=== PATIENT | male | born 1945 | race Caucasian/White ===

== ENCOUNTER 2018-03-24 21:14 | Inpatient (IN) | payer MEDICARE, OTHER, SELFPAY ==
[2018-03-24 21:15] VITALS: BP 144/65; PULSE 123; RESP 16; TEMP 38; O2SAT 94; BMI 35.5
--- NOTE | 2018-03-24 21:34 | ED.VISSUMM ---
- ER Visit Summary Date of Service: 03/24/18 Chief Complaint: Foot ulcer History of Present Illness: The patient is a [address] Chidi Christian III, Dr. Kendrick Troy, and Dr. Obregon. He reports that he has an ulcer on the bottom of his right great toe that is been present since the beginning of February. He has been seeing mutton puncher for the past 3 weeks. States that did not seem infected until yesterday. Reports the area became red yesterday. Reports his pain is 6 out of 10 and sharp when he walks. He is pain-free at rest. He does report that he developed a fever tonight to 100.4?. He denies any other complaints. Physical Examination: Vitals: Stable. Afebrile. General: Well-nourished and well-developed. Head: Normocephalic atraumatic. Neck: Supple, no lymphadenopathy. No JVD. Nontender. Cardiovascular: Tachycardic regular rhythm with a 2 out of 6 systolic murmur. Respiratory: No respiratory distress. Clear to auscultation bilaterally. Abdominal: Soft, nontender, nondistended, normal bowel sounds. No guarding, rebound, or peritoneal signs. Back: Nontender. Extremities: Dime sized ulcer on the medial side of the plantar surface of his right great toe. There is purulent drainage coming from this. He has erythema over the dorsum of his foot.. Skin: Normal color, no rash. Neurologic: Alert and oriented ?3. Cranial nerves II through XII are intact. Normal strength and sensation. Psych: Normal affect. Test Results: CBC is remarkable for a white count of 17.3 with an H&H of 11.3 and 35.7, segmented neutrophils 85, lymphocytes of 5. Chem-7 is more for sodium 134, chloride 95, BUN 32, creatinine 1.75, glucose of 271. Lactic acid is 3.1. Right great toe x-ray shows possible osteomyelitis involving the undersurface of the first distal phalanx. There is also questionable foreign body in this area. Emergency Department Course and Treatment: Patient had wound cultures obtained. He was given Zosyn and vancomycin IV. Patient is given Tylenol for the fever. He is given a liter bolus of normal saline. Treatment Plan: Patient was discussed with Dr. Jesus Curiel. He will be admitted to the hospital for further evaluation and treatment. Disposition: Admitted in improved but serious condition. Impression: 1. Diabetic ulcer right great toe. 2. Severe sepsis. 3. Acute renal insufficiency. 4. Possible foreign body right great toe. This note was generated with [employer] dictation software. It may contain incorrect words, spelling, and punctuation that were not noted in review of the chart prior to signing ED Disposition - Plan for ED Patient: Chief Complaint: Wound Referrals: Chidi Christian III, MD [Primary Care Provider] -
[2018-03-24] MEDS: 0.9% Normal Saline 1,000 ML 150 ML IV (21:58)
--- NOTE | 2018-03-24 22:10 | RAD_ITS ---
STUDY: X-RAY RIGHT FOOT, FIRST TOE REASON FOR EXAM: Male, 72 years old. Diabetic ulcer TECHNIQUE: 5 view(s) of the toe were obtained. COMPARISON: None. FINDINGS: A large and deep soft tissue wound is seen directly plantar to the first interphalangeal joint. In the same general area there is a 1 mm metal density consistent with foreign body. On the lateral view, there are irregularities of the undersurface of the distal first phalanx which could represent osteomyelitis. There is generalized soft tissue swelling. RAD/Toe(s) Min 2 Views IMPRESSION: Possible osteomyelitis involving the undersurface of the first distal phalanx. Electronically Signed: [place] MD at 22:26 EDT , Service support ,
[2018-03-24 22:19] LABS: Absolute Lymphocyte Count 0.93 X10^3/ul (0.83-4.51); Absolute Neutrophil Count 14.7 X10^3/uL (2.0-7.7); Basophil# 0.01 X10^3/uL; Basophil% 0.1 % (0-1); Eosinophil# 0.12 X10^3/uL; Eosinophils% 0.7 % (0-5); Hematocrit 35.7 % (40-54); Hemoglobin 11.3 g/dl (13.0-16.5); Lymphocyte # 0.93 X10^3/ul (4.0); Lymphocyte % 5.4 % (19-41); Mean Corp Hgb Conc 31.7 g/gl (32-36); Mean Corpuscular Volume 85.2 fL (80-94); Monocyte# 1.52 X10^3/uL; Monocyte% 8.8 % (0-10); Neutrophil # 14.66 X10^3/uL (2.7-7.7); Neutrophil % 84.8 % (47-70); Platelet Count 303 K/mm3 (150-450); RBC Distribution Width CV 13.8 % (11.6-14.6); RBC Distribution Width SD 43.1 fl (35.1-43.9); Red Blood Count 4.19 M/mm3 (4.6-6.2); White Blood Count 17.3 K/mm3 (4.4-11.0)
[2018-03-24 22:20] VITALS: BP 150/88; PULSE 102; RESP 14; O2SAT 98
[2018-03-24 22:20] LABS: Differential Indicated SCAN CRITERIA MET; POSITIVE COUNT NO; POSITIVE DIFFERENTIAL YES; POSITIVE MORPHOLOGY NO
[2018-03-24 22:28] LABS: Anion Gap 13 (5-15); BUN 32 mg/dL (7-18); BUN/Creat Ratio 18.3 RATIO (10-20); Calcium,Total 9.2 mg/dL (8.5-10.1); Chloride 95 mmol/L (98-107); Creatinine, Serum 1.75 mg/dL (0.70-1.30); EST Glomerular Filtration Rate 41 mL/min (>60); Est Glom Filt Rate - Afr Amer 50 mL/min (>60); Estimated Creatinine Clearance 44.39 ml/min; Glucose 271 mg/dL (74-106); Potassium 3.5 mmol/L (3.5-5.1); Sodium Level 134 mmol/L (136-145)
[2018-03-24 22:42] LABS: Differential Comment SCANNED; Lactic Acid 3.1 mmol/L (0.4-2.0)
[2018-03-24 23:11] LABS: M R Staph aureus DNA By PCR Negative (Negative); Probe Check PASS; Specimen Processing Control PASS; Staph aureus DNA By PCR POSITIVE (Negative)
[2018-03-24] MEDS: 0.9% Normal Saline 1,000 ML 999 ML IV (23:16)
[2018-03-24] MEDS: Acetaminophen 500 MG Tablet 1000 MG PO (23:18)
--- NOTE | 2018-03-24 23:46 | PCM.HP.STD ---
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 This initially started as a diabetic ulcer for which he has been receiving chronic wound care as an outpatient. He states the wound was improving until recently when they changed the type of wound care dressing they were using. Today upon opening his bandage copious amount of purulent discharge was present. The foot was warm to touch as well. WBC count is 17,000 with a left shift. He will be admitted for IV antibiotics and surgical management. 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) DM II (diabetes mellitus, type II), controlled (Chronic) HTN (hypertension) (Chronic) Allergies No Known Allergies Allergy (Verified 03/24/18 21:16) Home Medications: Ambulatory Orders Medication Instructions Recorded Metoprolol(XL)Succ [Toprol Xl 200 mg PO DAILY 09/16/13 (Beta Red)] Aspirin [Aspirin, Baby] 81 mg PO DAILY@0800 #30 tab.chew 09/19/13 Atorvastatin Calcium [Lipitor] 5 mg PO QHS #30 tablet 09/19/13 Warfarin [Coumadin] 5 mg PO DAILY #30 tablet 09/19/13 Chlorthalidone 25 mg PO DAILY 03/24/18 Collagenase [Santyl] 1 applic TOPICAL DAILY 03/24/18 Dulaglutide [Trulicity] 1.5 mg SQ QWEEK 03/24/18 Losartan Potassium 50 mg PO DAILY 03/24/18 Metformin HCl [Metformin HCl ER] 1,000 mg PO BID 03/24/18 Pioglitazone [Actos] 30 mg PO DAILY 03/24/18 Surgical History: - - Repair of a thoracic aortic aneurysm and aortic valve repair in 2006. Patient also had an MRSA infection in his abdomen before and had quite extensive debridement. Smoking Status: Never smoker - *Family History Maternal History Items: No pertinent history Review of Systems Constitutional: Reports: Fever. Denies: Chills, Weight Change HEENT: Denies: Head Aches, Sinus Congestion, Sinus Drainage Cardiovascular: Denies: Chest Pain, Palpitations Respiratory: Denies: Cough, Shortness of breath at rest, Sputum production Gastrointestinal: Denies: Abdominal Pain, Nausea, Vomiting Genitourinary: Denies: Dysuria Musculoskeletal: Denies: Joint Pain, Joint Tenderness Skin: Reports: Wounds - right foot. Denies: Rash Neurological: Denies: Numbness, Tingling, Focal weakness Psychiatric: Denies: Anxiety, Depression, Homicidal Ideations, Suicidal Ideations Hematologic/ Lymphatic: Denies: Easy Bruising, Easy Bleeding VTE Information - Inpt Only VTE Present on Admission: No VTE Mechan Device Prophylaxis: None VTE Pharm Prophylaxis ordered?: Yes Patient Problems: Active and Suspected Problems Ulcer of right great toe due to diabetes mellitus (Acute) Osteomyelitis (Acute) - Physical Exam General: Alert, Oriented x3, Cooperative HEENT: Atraumatic, Normocephalic Neck: Supple Lungs: Clear to auscultation, Normal air movement Cardiovascular: Regular rate, Normal S1, Normal S2, No murmurs Abdomen: Bowel Sounds Present, Soft, Non Tender Extremities: Tenderness Skin: Ulcer/ Wound - right great toe dorsal surface quarter size open wound erythema /warmth with induration present on the distal midfoot circumferentially Musculoskeletal: Tenderness Neurological: Cranial nerves II-XII grossly intact Psych/Mental Status: Normal Affect, Appropriate Vital Signs Temp Pulse Resp BP Pulse Ox 100.4 F H 102 H 14 150/88 H 98 03/24/18 21:15 03/24/18 22:20 03/24/18 22:20 03/24/18 22:20 03/24/18 22:20 Oxygen Delivery Method Room Air Weight: 269 lb 6.4 oz Body Mass Index (BMI) 35.5 Laboratory Tests Past 24 Hrs 03/24/18 03/24/18 03/24/18 21:33 22:00 22:00 WBC 17.3 H RBC 4.19 L Hgb 11.3 L Hct 35.7 L MCV 85.2 MCH 27.0 MCHC 31.7 L RDW 13.8 RDW Differential 43.1 Plt Count 303 MPV 9.0 Immature Gran % (Auto) 0.200 Neut % (Auto) 84.8 H Lymph % (Auto) 5.4 L [place] % (Auto) 8.8 Eos % (Auto) 0.7 Baso % (Auto) 0.1 Absolute Neuts (auto) 14.7 H Absolute Lymphs (auto) 0.93 Total Counted Not Reportable Differential Comment SCANNED Sodium 134 L Potassium 3.5 Chloride 95 L Carbon Dioxide 26.0 Anion Gap 13 BUN 32 H Creatinine 1.75 H Estim Creat Clear Calc 44.39 Est GFR (MDRD) Af Amer 50 L Est GFR (MDRD) Non-Af 41 L BUN/Creatinine Ratio 18.3 Glucose 271 H Lactic Acid Calcium 9.2 S.aureus Protein A PCR POSITIVE H MRSA (PCR) Negative 03/24/18 22:00 WBC RBC Hgb Hct MCV MCH MCHC RDW RDW Differential Plt Count MPV Immature Gran % (Auto) Neut % (Auto) Lymph % (Auto) [place] % (Auto) Eos % (Auto) Baso % (Auto) Absolute Neuts (auto) Absolute Lymphs (auto) Total Counted Differential Comment Sodium Potassium Chloride Carbon Dioxide Anion Gap BUN Creatinine Estim Creat Clear Calc Est GFR (MDRD) Af Amer Est GFR (MDRD) Non-Af BUN/Creatinine Ratio Glucose Lactic Acid 3.1 H Calcium S.aureus Protein A PCR MRSA (PCR) Assessment/Plan All Active Problems Ulcer of right great toe due to diabetes mellitus (Acute) Osteomyelitis (Acute) Vertigo (Acute) Cough (Acute) (dyspnea on exertion) (Acute) Pulmonary emboli (Acute) H/O aortic valve repair (Resolved) H/O thoracic aortic aneurysm repair (Resolved) Nausea (Resolved) PAF (paroxysmal atrial fibrillation) (Resolved) Assessment - cellulitis foot - osteomyelitis great toe right - diabetic ulcer foot Chronic Problems HLD (hyperlipidemia) (Chronic) 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) DM II (diabetes mellitus, type II), controlled (Chronic) HTN (hypertension) (Chronic) Plan - admit to medical surgical floor - consult Dr Mejia - continue Vancomycin and Zosyn - NPO - ok home medications with sips otherwise NPO pending surgery - LMWH for DVT prophylaxis - CBC, BMP, Lactate in am Code Visit Inpatient E&M: 48921 Init Hosp L3
[2018-03-25] VITALS (13 sets, daily range): BP systolic 108–130; BP diastolic 50–72; PULSE 64–88; RESP 14–20; TEMP 36.8–38.3; O2SAT 94–100; BMI 35.5; BMI 35.9
--- NOTE | 2018-03-25 01:13 | PCM.RX.CS ---
Consult Pharmacy has been consulted to manage selected antiobiotic: Vancomycin Type of Consult: New start Suspected Infection: Osteomyelitis Prior Doses of Antibiotics Received/Current Regimen: Medications Discontinued Medications Vancomycin HCl 1,750 mg/ (Sodium Chloride) 535 mls @ 250 mls/hr IV X1 ONE Stop: 03/25/18 00:08 Last Admin: 03/24/18 22:17 Dose: 250 mls/hr Medications Vancomycin HCl (Vancomycin) 1,000 mg in 200 mls @ 200 mls/hr IV Q12H FRED Start: 03/26/18 1000 Labs: Sodium 134 mmol/L (136-145) L 03/24/18 22:00 Potassium 3.5 mmol/L (3.5-5.1) 03/24/18 22:00 Chloride 95 mmol/L (98-107) L 03/24/18 22:00 Carbon Dioxide 26.0 mmol/L (21.0-32.0) 03/24/18 22:00 Anion Gap 13 (5-15) 03/24/18 22:00 BUN 32 mg/dL (7-18) H 03/24/18 22:00 Creatinine 1.75 mg/dL (0.70-1.30) H 03/24/18 22:00 Est GFR (MDRD) Af Amer 50 mL/min (>60) L 03/24/18 22:00 Est GFR (MDRD) Non-Af 41 mL/min (>60) L 03/24/18 22:00 BUN/Creatinine Ratio 18.3 RATIO (10-20) 03/24/18 22:00 Glucose 271 mg/dL (74-106) H 03/24/18 22:00 Weight used for dosin.2 kg Estimated Creatinine Clearance: 44.39 Goal Trough: 15-20 mcg/mL Pharmacy Plan for Drug Dosing: Pharmacy Service will continue to monitor and adjust dosing as required. Vancomycin will be started at 1000mg IV q12h with a goal trough of 15-20 mg/L for osteomyelitis. A vancomycin trough will be obtained before the 4th dose. Follow-Up Labs: Trough Vancomycin - before 4th dose Labs to be done on [date and time ordered]: 03/26/18 0930 vancomycin trough
[2018-03-25 02:09] LABS: Reflex Lactate? Y
[2018-03-25 02:59] LABS: Prothrombin Time (Protime)PT. 31.7 SECONDS (11.7-14.9)
[2018-03-25 03:04] LABS: Absolute Lymphocyte Count 1.59 X10^3/ul (0.83-4.51); Absolute Neutrophil Count 12.8 X10^3/uL (2.0-7.7); Basophil# 0.03 X10^3/uL; Basophil% 0.2 % (0-1); Eosinophil# 0.14 X10^3/uL; Eosinophils% 0.9 % (0-5); Hematocrit 31.2 % (40-54); Hemoglobin 10.1 g/dl (13.0-16.5); Lymphocyte # 1.59 X10^3/ul (4.0); Lymphocyte % 9.9 % (19-41); Mean Corp Hgb Conc 32.4 g/gl (32-36); Mean Corpuscular Hgb 27.3 pg (27.0-32.0); Mean Corpuscular Volume 84.3 fL (80-94); Mean Platelet Vol. 8.9 fl (6.2-12.0); Monocyte# 1.34 X10^3/uL; Monocyte% 8.4 % (0-10); Neutrophil # 12.82 X10^3/uL (2.7-7.7); Neutrophil % 80.2 % (47-70); POSITIVE COUNT NO; POSITIVE DIFFERENTIAL NO; POSITIVE MORPHOLOGY NO; Platelet Count 270 K/mm3 (150-450); RBC Distribution Width CV 13.8 % (11.6-14.6); RBC Distribution Width SD 42.7 fl (35.1-43.9)
[2018-03-25 03:11] LABS: Anion Gap 13 (5-15); BUN 32 mg/dL (7-18); BUN/Creat Ratio 19.8 RATIO (10-20); Calcium,Total 8.3 mg/dL (8.5-10.1); Chloride 100 mmol/L (98-107); Creatinine, Serum 1.62 mg/dL (0.70-1.30); EST Glomerular Filtration Rate 45 mL/min (>60); Est Glom Filt Rate - Afr Amer 54 mL/min (>60); Estimated Creatinine Clearance 46.57 ml/min; Glucose 222 mg/dL (74-106); Potassium 3.3 mmol/L (3.5-5.1); Sodium Level 140 mmol/L (136-145)
[2018-03-25 03:43] LABS: Lactic Acid 2.1 mmol/L (0.4-2.0)
[2018-03-25 06:01] LABS: Lactic Acid 2.3 mmol/L (0.4-2.0)
--- NOTE | 2018-03-25 06:03 | NURSING ---
Lab notified this RN at 0600hrs re Lactic acid result of 2.3. Notified primary RN Dario of result.
[2018-03-25 06:30] LABS: Bedside Glucose 221 mg/dL (70-110)
[2018-03-25] MEDS: Piperacil/Tazobactam 3.375 GM/50 ML ML IV ×3 (06:39→21:47)
--- NOTE | 2018-03-25 07:22 | CON.PCM_ITS ---
Reason for Consult Date of Consultation: 03/25/18 Reason for Consultation: cellulitis and diabetic foot ulceration History of Present Illness: The patient is a 72 year old M with pmh for diabetic neuropathy is currently admitted for cellulitis and possible osteomyelitis of his right hallux. Patient is well known to me as he comes to my clinic for diabetic foot care every 3 months. He saw me for diabetic foot exam on March 06. at that time , it was found that he had ulceration of his right hallux that he states had been present for 3-4 weeks. He did not call my office because he stated at that time that he has had alot going on and he did not feel that he had time to get to my office. He was treating the wound with neosporin and he felt that it was getting better. He has been seen for the past 3 weeks in my office. We initially treated with santyl for enzymatic debridement of fibrotic slough. He had been recommended peg assisted offloading boot and walker but he did not use this as he felt that it was not adequately offloading the ulceration. He has been offered total contact casting but he declined that. he has had xrays in my office on march 06 and last Saturday. xrays in my clinic have been stable with no osteomyelitis. Last week when he presented to my clinic, the wound although fairly large, appeared more granular. Sandra was ordered for daily wound care. He was given forefoot wedge shoe. He states the ulceration is getting smaller but yesterday, he noticed some drainage. He presented to the emergency room where wbc was found to be 17,000. xrays were ordered and there are now questionable findings for osteomyelitis of his right hallux distal phalanx. Patient was placed on antibiotic. He is npo for possible podiatric surgery. Of note, patient has had pvr performed in my clinic this past November and his circulation appears to be adequate. Patient denies n/v/f/c. [] 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) DM II (diabetes mellitus, type II), controlled (Chronic) HTN (hypertension) (Chronic) Allergies No Known Allergies Allergy (Verified 03/24/18 21:16) Home Medications: Ambulatory Orders Medication Instructions Recorded Metoprolol(XL)Succ [Toprol Xl 200 mg PO DAILY 09/16/13 (Beta Red)] Aspirin [Aspirin, Baby] 81 mg PO DAILY@0800 #30 tab.chew 09/19/13 Warfarin [Coumadin] 5 mg PO DAILY #30 tablet 09/19/13 Chlorthalidone 25 mg PO DAILY 03/24/18 Dulaglutide [Trulicity] 1.5 mg SQ QWEEK 03/24/18 Losartan Potassium 50 mg PO DAILY 03/24/18 Metformin HCl [Metformin HCl ER] 1,000 mg PO BID 03/24/18 Pioglitazone [Actos] 30 mg PO DAILY 03/24/18 Atorvastatin Calcium [Lipitor] 10 mg PO QHS 03/25/18 Surgical History: - - Repair of a thoracic aortic aneurysm and aortic valve repair in 2006. Patient also had an MRSA infection in his abdomen before and had quite extensive debridement. Smoking Status: Never smoker - *Family History Maternal History Items: No pertinent history Patient Problems: Active and Suspected Problems Ulcer of right great toe due to diabetes mellitus (Acute) Osteomyelitis (Acute) Objective: Patient is alert and orientated x 3. He does not appear in any distress vascular: DP and PT pulses are palpable to right foot. CFT is brisk. Skin temperature is warm to warm. There is edema of right foot. There is redness of right midfoot extending distally. Derm: there is full thickness ulceration to right hallux ipj. ulceration is approximately 1.2 cm x 0.8 cm x 0.3 cm. there is pus drainage from the base of ulceration. there is scaling and deroofing of skin of lateral right hallux that is new since last Saturday. no other ulceration is noted to right foot. neuro: protective sensation is absent to right foot. xrays reviewed. there is questionable erosive changes to right hallux distal phalanx concerning for osteomyelitis. no gas in soft-tissue. there is small 1 mm foreign body of right hallux - Physical Exam Vital Signs Temp Pulse Resp BP Pulse Ox 98.7 F 71 16 108/58 L 98 03/25/18 06:06 03/25/18 06:06 03/25/18 06:06 03/25/18 06:06 03/25/18 06:06 Oxygen Delivery Method Room Air Weight: 122.8 kg Body Mass Index (BMI) 35.9 Intake and Output for Last 24 Hours 03/23/18 03/24/18 03/25/18 23:59 23:59 23:59 Intake Total 741 / 741 Balance 741 / 741 Laboratory Tests Past 24 Hrs 03/25/18 03/25/18 03/25/18 02:37 02:37 02:37 WBC 16.0 H RBC 3.70 L Hgb 10.1 L Hct 31.2 L MCV 84.3 MCH 27.3 MCHC 32.4 RDW 13.8 RDW Differential 42.7 Plt Count 270 MPV 8.9 Immature Gran % (Auto) 0.400 Neut % (Auto) 80.2 H Lymph % (Auto) 9.9 L [place] % (Auto) 8.4 Eos % (Auto) 0.9 Baso % (Auto) 0.2 Absolute Neuts (auto) 12.8 H Absolute Lymphs (auto) 1.59 Total Counted Not Reportable PT 31.7 H INR 3.0 Sodium 140 Potassium 3.3 L Chloride 100 Carbon Dioxide 27.0 Anion Gap 13 BUN 32 H Creatinine 1.62 H Estim Creat Clear Calc 46.57 Est GFR (MDRD) Af Amer 54 L Est GFR (MDRD) Non-Af 45 L BUN/Creatinine Ratio 19.8 Glucose 222 H Lactic Acid Calcium 8.3 L 03/25/18 03/25/18 02:37 05:05 WBC RBC Hgb Hct MCV MCH MCHC RDW RDW Differential Plt Count MPV Immature Gran % (Auto) Neut % (Auto) Lymph % (Auto) [place] % (Auto) Eos % (Auto) Baso % (Auto) Absolute Neuts (auto) Absolute Lymphs (auto) Total Counted PT INR Sodium Potassium Chloride Carbon Dioxide Anion Gap BUN Creatinine Estim Creat Clear Calc Est GFR (MDRD) Af Amer Est GFR (MDRD) Non-Af BUN/Creatinine Ratio Glucose Lactic Acid 2.1 H 2.3 H Calcium POC Glucose 03/25/18 06:18 POC Glucose 221 H Assessment/Plan All Active Problems Ulcer of right great toe due to diabetes mellitus (Acute) Osteomyelitis (Acute) Vertigo (Acute) Cough (Acute) (dyspnea on exertion) (Acute) Pulmonary emboli (Acute) H/O aortic valve repair (Resolved) H/O thoracic aortic aneurysm repair (Resolved) Nausea (Resolved) PAF (paroxysmal atrial fibrillation) (Resolved) Patient was examined and informed of current findings. On exam, he has both cellulitis of foot and active drainage of right hallux ipj ulceration, both new since last week. xrays reviewed and concerning for osteomyelitis. I have discussed with patient need for incision and drainage. given xray findings, there is significant risk that he is going to require some form of amputation. Partial vs total toe amputation is possible not only for osteomyelitis but due to the condition of surrounding skin and existing ulceration. I would like to order mri vs ct scan to aide in further operative planning for extent of likely amputation. given that he has small metallic body in foot, mri is likely not adequate and will likely require ct scan. I am going to discuss with radiology. I have had discussion with patient. this patient had ulceration of right hallux for nearly one month before seeking treatment. it is important in future if he has an issue, he contact provider immediately so that this situation is prevented in future. he understands the result of his action. continue with antibiotic. will have patient resume clear liquid diet until 10: 00. npo thereafter for possible surgery.
--- NOTE | 2018-03-25 07:30 | BON_PTH ---
PATIENT: RICHARD ROY LOC: MS2 U#:[id number] AGE/SX: 72/M [place] [facility] [place]: Dr. Gabriel Giraldo DO : 1945 BED: 1 DIS: 04/01/2018 SPEC #: [id number] RECD: 03/26/18 13:08 STATUS: VINNIE REQ #: [id number] CAMILA: 03/25/18 07:[address]: Zachary Obregon DEPT: SURGICAL PATHOLOGY RECD BY: Asaf Esteban ENTERED: 03/26/18 13:09 SP TYPE: Bone OTHR DR: MD Dr. Yolie Bear III, MD Dr. Marc Fiorentino, MD Dr. Matthew Testrake, DPM MD Dr. Smith Ram MD Tissues: A - Bone of foot, NOS B - Bone of foot, NOS Procedures: Decalcification bone/plaque Special Stain Group I Surgery Specimen Level III Surgery Specimen Level IV AFB Stain (control) GMS Stain (control) Comments: @ Ordering doctor for DEC edited from to @ by DONNA at 03/26/18 160 @ Ordering doctor for SUIII edited from to @ by DONNA at 03/26/18 1608 @ Submitting doctor edited from to @ sujey THOMPSON at 03/26/18 1601 HEADER OPERATION: Incision and drainage, partial amputation great toe PRE-OP DIAGNOSIS: Osteomyelitis right great toe with diabetic foot ulcerations TISSUE SUBMITTED: A ? Pre-lavage distal phalanx right hallux, B ? Post-lavage first metatarsal right foot MICROSCOPIC DIAGNOSIS A. Distal phalanx right hallux, pre-lavage, amputation: Acute inflammation and abscess formation. Special stains for acid fast bacilli and fungi are negative for organisms; matched controls are appropriate. Bone with acute osteomyelitis. B. Post-lavage first metatarsal right foot: A piece of bone, negative for acute osteomyelitis. SJ:radhika 03/31/18 MICROSCOPIC DESCRIPTION Slides are reviewed. GROSS DESCRIPTION A - Received in fixative is one container labeled with the patient's name and designated pre-lavage distal phalanx right hallux. The specimen consists of a portion of toe measuring 3 x 3 x 2 cm. The nail is present and appears focally atrophic. No obvious area of ulcerated is noted. Bioassayist sections are submitted in three cassettes as follows: 1 ? soft tissue close to the area of amputation, 2 & 3 ? bone after decalcification. B - Received in fixative is one container labeled with the patient's name and designated post-lavage first metatarsal right foot. The specimen consists of a piece of bone measuring 0.7 x 0.3 x 0.3 cm. The entire specimen is submitted in one cassette after decalcification. / SJ:rg 03/26/18 TC:2 CPT: 71836, 87935, 98124 x2, 81297 x2
--- NOTE | 2018-03-25 08:09 | MRI_ITS ---
STUDY: MRI RIGHT FOREFOOT WITHOUT CONTRAST REASON FOR EXAM: Open wound since February. TECHNIQUE: Standardized fat and water weighted pulse sequences were obtained in all 3 orthogonal planes. COMPARISON: Radiographs 03/24/2018. FINDINGS: Normal metatarsophalangeal joint of the hallux. There is a bipartite fibular sesamoid with slight cystic change adjacent to the synchondrosis (inversion recovery sagittal image 9). Normal interphalangeal joint of the hallux. There is bone edema of the first distal phalanx (inversion recovery sagittal images 11, 12) with erosion of the plantar cortex of the first proximal phalanx (T1 series 7 image 28) suggestive of osteomyelitis. There is bone edema of the first proximal phalanx (inversion recovery sagittal images 9, 10) without decreased T1 bone marrow signal and therefore either reactive bone edema or early osteomyelitis. Normal medial and lateral heads of the flexor hallucis brevis tendons. Normal flexor and extensor hallucis longus tendons. Normal second through fifth metatarsophalangeal (MTP) joints. Normal interphalangeal joints of the second through fifth toes. Normal proximal, middle and distal phalanges of the second through fifth toes. There is soft tissue fullness at the plantar aspect of the second webspace (T1 series 7 images 16, 17) measuring 0.5 cm in AP dimension. Normal flexor and extensor tendons of the second through fifth toes. Normal visualized metatarsi. There is fat replacement of the intrinsic muscles of the forefoot (T1 sagittal images 11-23) suggestive of peripheral neuropathy. There is edema in the subcutis adipose space. There is a fluid collection at the lateral aspect of the first interphalangeal joint/first proximal phalanx (inversion recovery sagittal image 13; T2 series 8 images 24, 25) suggestive of an abscess measuring 1.5 x 0.7 x 2.6 cm (AP x transverse x length). MRI/Lower Ext/No Jt/w/o IMPRESSION: Signal alteration of the distal phalanx of the great toe suggestive of osteomyelitis, and bone edema of the first proximal phalanx, either reactive bone edema or early osteomyelitis. Fluid collection at the lateral aspect of the great toe suggestive of abscess. Atrophy of the intrinsic muscles of the forefoot suggestive of peripheral neuropathy. Small intermetatarsal neuroma of the second webspace. Electronically Signed: Tyler Neal MD at 9:58 EDT Tel , Service support ,
--- NOTE | 2018-03-25 08:48 | PCM.PN.HOSP ---
Patient Problems: Active and Suspected Problems Ulcer of right great toe due to diabetes mellitus (Acute) Osteomyelitis (Acute) Subjective: Doing ok, still has pain in his right great toe. States that he has lost 30# over the last few months. Vitals/I&O's: Vital Signs Temp Pulse Resp BP Pulse Ox 98.7 F 71 16 108/58 L 98 03/25/18 06:06 03/25/18 06:06 03/25/18 06:06 03/25/18 06:06 03/25/18 06:06 Oxygen Delivery Method Room Air Weight: 270 lb 11.642 oz Body Mass Index (BMI) 35.9 Intake and Output for Last 24 Hours 03/23/18 03/24/18 03/25/18 23:59 23:59 23:59 Intake Total 741 / 741 Balance 741 / 741 General: Alert, Oriented x3, Cooperative, No apparent distress HEENT: Atraumatic, EOMI, Normocephalic Oral: Moist Mucosa Neck: Supple, No JVD Lungs: Clear to auscultation, Normal air movement, No rhonchi, No wheeze, No rales Cardiovascular: Regular rate, Regular Rhythm, Normal S1, Normal S2, No murmurs Abdomen: Soft, Non Tender, Non-Distended, No Hepato-splenomegaly Extremities: No edema, Capillary Refill Less than 3 Seconds Skin: - - erythema and warmth surrounding his right great toe Musculoskeletal: Tenderness - right great toe Neurological: Neuro grossly intact, Sensory exam intact to light touch and pain Psych/Mental Status: Normal Affect, Appropriate Laboratory Results 03/25/18 02:37: WBC 16.0 H, RBC 3.70 L, Hgb 10.1 L, Hct 31.2 L, MCV 84.3, MCH 27.3, MCHC 32.4, RDW 13.8, RDW Differential 42.7, Plt Count 270, MPV 8.9, Immature Gran % (Auto) 0.400, Neut % (Auto) 80.2 H, Lymph % (Auto) 9.9 L, Polk % (Auto) 8.4, Eos % (Auto) 0.9, Baso % (Auto) 0.2, Absolute Neuts (auto) 12.8 H, Absolute Lymphs (auto) 1.59, Total Counted Not Reportable 03/25/18 02:37: PT 31.7 H, INR 3.0 03/25/18 02:37: Sodium 140, Potassium 3.3 L, Chloride 100, Carbon Dioxide 27.0, Anion Gap 13, BUN 32 H, Creatinine 1.62 H, Estim Creat Clear Calc 46.57, Est GFR (MDRD) Af Amer 54 L, Est GFR (MDRD) Non-Af 45 L, BUN/Creatinine Ratio 19.8, Glucose 222 H, Calcium 8.3 L 03/25/18 02:37: Lactic Acid 2.1 H 03/25/18 05:05: Lactic Acid 2.3 H 03/25/18 06:18: POC Glucose 221 H Current Medications Acetaminophen (Tylenol) 650 mg PO Q6H PRN PRN PRN Reason: Mild Pain (scale 0-3)/T>100.7 Aspirin (Aspirin, Baby) 81 mg PO DAILY@0800 [facility] Atorvastatin Calcium (Lipitor) 5 mg PO QHS [facility] Chlorthalidone (Hygroton) 25 mg PO DAILY [facility] Dextrose (D50w Syringe) 0 gm IV X1 PRN; Protocol PRN Reason: Hypoglycemia Glucagon () 1 mg IM .X1 PRN PRN Reason: Hypoglycemia Sodium Chloride () 1,000 mls @ 150 mls/hr IV .Q6H40M [facility] Last Admin: 03/24/18 21:58 Dose: 150 mls/hr Piperacillin Sod/Tazobactam Sod (Zosyn) 3.375 gm in 50 mls @ 12.5 mls/hr IV Q8 [facility] Last Admin: 03/25/18 06:39 Dose: 12.5 mls/hr Vancomycin IV Pharmacy to Dose (1 ea/ Sodium Chloride) 500 mls @ 250 mls/hr IV X1 PRN; Protocol PRN Reason: Rx to Dose Vancomycin HCl (Vancomycin) 1,000 mg in 200 mls @ 200 mls/hr IV Q12H [facility] Sodium Chloride () 250 mls @ 15 mls/hr IV .[id number] PRN PRN Reason: SALINE FLUSH Losartan Potassium (Cozaar) 50 mg PO DAILY [facility] Magnesium Hydroxide (Milk Of Magnesia) 30 ml PO DAILY PRN PRN PRN Reason: Constipation Metformin HCl (Glucophage Xr) 1,000 mg PO BIDCM [facility] Metoprolol Succinate (Toprol Xl (Beta Red)) 200 mg PO DAILY FRED Pioglitazone HCl (Actos) 30 mg PO DAILY FRED Sodium Chloride () 5 - 30 ml IV UD PRN PRN Reason: SALINE FLUSH Medical Necessity - Tobacco Use Smoking Status: Never smoker Assessment/Plan All Active Problems Ulcer of right great toe due to diabetes mellitus (Acute) Osteomyelitis (Acute) Vertigo (Acute) Cough (Acute) (dyspnea on exertion) (Acute) Pulmonary emboli (Acute) H/O aortic valve repair (Resolved) H/O thoracic aortic aneurysm repair (Resolved) Nausea (Resolved) PAF (paroxysmal atrial fibrillation) (Resolved) 1. Sepsis 2/2 probable osteomyelitis from a diabetic foot wound - c/w zosyn and vanco - c/s to Podiatry - MRI of his foot today - Possible operative treatment if necessary - Discussed the role of diet in the management of his diabetes - c/w IVF@150 2. DM2 - Hold his metformin, actos, and Trulicity - Start SSI and accuchecks ACHS 3. HTN/HLD - stable - c/w Losartan, metopriolol, ASA, chlorthalidone and lipitor 4. H/o PE - he is currently on coumadin - Will hold coumadin for now, his PE were in 2014 and if that was the first PE, then he does not require life-long anticoagulation - Cannot find any mention in his chart about a-fib DVT: SCDs, INR this am was 3.0 Diet: Clears Code Visit Inpatient E&M: 10691 Subs Hosp L2
--- NOTE | 2018-03-25 09:00 | PN_ITS ---
Patient Problems: Active and Suspected Problems Ulcer of right great toe due to diabetes mellitus (Acute) Osteomyelitis (Acute) Subjective: Doing ok, still has pain in his right great toe. States that he has lost 30# over the last few months. Vitals/I&O's: Vital Signs Temp Pulse Resp BP Pulse Ox 98.7 F 71 16 108/58 L 98 03/25/18 06:06 03/25/18 06:06 03/25/18 06:06 03/25/18 06:06 03/25/18 06:06 Oxygen Delivery Method Room Air Weight: 270 lb 11.642 oz Body Mass Index (BMI) 35.9 Intake and Output for Last 24 Hours 03/23/18 03/24/18 03/25/18 23:59 23:59 23:59 Intake Total 741 / 741 Balance 741 / 741 General: Alert, Oriented x3, Cooperative, No apparent distress HEENT: Atraumatic, EOMI, Normocephalic Oral: Moist Mucosa Neck: Supple, No JVD Lungs: Clear to auscultation, Normal air movement, No rhonchi, No wheeze, No rales Cardiovascular: Regular rate, Regular Rhythm, Normal S1, Normal S2, No murmurs Abdomen: Soft, Non Tender, Non-Distended, No Hepato-splenomegaly Extremities: No edema, Capillary Refill Less than 3 Seconds Skin: - - erythema and warmth surrounding his right great toe Musculoskeletal: Tenderness - right great toe Neurological: Neuro grossly intact, Sensory exam intact to light touch and pain Psych/Mental Status: Normal Affect, Appropriate Laboratory Results 03/25/18 02:37: WBC 16.0 H, RBC 3.70 L, Hgb 10.1 L, Hct 31.2 L, MCV 84.3, MCH 27.3, MCHC 32.4, RDW 13.8, RDW Differential 42.7, Plt Count 270, MPV 8.9, Immature Gran % (Auto) 0.400, Neut % (Auto) 80.2 H, Lymph % (Auto) 9.9 L, Clark % (Auto) 8.4, Eos % (Auto) 0.9, Baso % (Auto) 0.2, Absolute Neuts (auto) 12.8 H , Absolute Lymphs (auto) 1.59, Total Counted Not Reportable 03/25/18 02:37: PT 31.7 H, INR 3.0 03/25/18 02:37: Sodium 140, Potassium 3.3 L, Chloride 100, Carbon Dioxide 27.0, Anion Gap 13, BUN 32 H, Creatinine 1.62 H, Estim Creat Clear Calc 46.57, Est GFR (MDRD) Af Amer 54 L, Est GFR (MDRD) Non-Af 45 L, BUN/Creatinine Ratio 19.8, Glucose 222 H, Calcium 8.3 L 03/25/18 02:37: Lactic Acid 2.1 H 03/25/18 05:05: Lactic Acid 2.3 H 03/25/18 06:18: POC Glucose 221 H Current Medications Acetaminophen (Tylenol) 650 mg PO Q6H PRN PRN PRN Reason: Mild Pain (scale 0-3)/T>100.7 Aspirin (Aspirin, Baby) 81 mg PO DAILY@0800 [facility] Atorvastatin Calcium (Lipitor) 5 mg PO QHS [facility] Chlorthalidone (Hygroton) 25 mg PO DAILY [facility] Dextrose (D50w Syringe) 0 gm IV X1 PRN; Protocol PRN Reason: Hypoglycemia Glucagon () 1 mg IM .X1 PRN PRN Reason: Hypoglycemia Sodium Chloride () 1,000 mls @ 150 mls/hr IV .Q6H40M [facility] Last Admin: 03/24/18 21:58 Dose: 150 mls/hr Piperacillin Sod/Tazobactam Sod (Zosyn) 3.375 gm in 50 mls @ 12.5 mls/hr IV Q8 [facility] Last Admin: 03/25/18 06:39 Dose: 12.5 mls/hr Vancomycin IV Pharmacy to Dose (1 ea/ Sodium Chloride) 500 mls @ 250 mls/hr IV X1 PRN; Protocol PRN Reason: Rx to Dose Vancomycin HCl (Vancomycin) 1,000 mg in 200 mls @ 200 mls/hr IV Q12H [facility] Sodium Chloride () 250 mls @ 15 mls/hr IV .[id number] PRN PRN Reason: SALINE FLUSH Losartan Potassium (Cozaar) 50 mg PO DAILY [facility] Magnesium Hydroxide (Milk Of Magnesia) 30 ml PO DAILY PRN PRN PRN Reason: Constipation Metformin HCl (Glucophage Xr) 1,000 mg PO BIDCM [facility] Metoprolol Succinate (Toprol Xl (Beta Red)) 200 mg PO DAILY FRED Pioglitazone HCl (Actos) 30 mg PO DAILY FRED Sodium Chloride () 5 - 30 ml IV UD PRN PRN Reason: SALINE FLUSH Medical Necessity - Tobacco Use Smoking Status: Never smoker Assessment/Plan All Active Problems Ulcer of right great toe due to diabetes mellitus (Acute) Osteomyelitis (Acute) Vertigo (Acute) Cough (Acute) (dyspnea on exertion) (Acute) Pulmonary emboli (Acute) H/O aortic valve repair (Resolved) H/O thoracic aortic aneurysm repair (Resolved) Nausea (Resolved) PAF (paroxysmal atrial fibrillation) (Resolved) 1. Sepsis 2/2 probable osteomyelitis from a diabetic foot wound - c/w zosyn and vanco - c/s to Podiatry - MRI of his foot today - Possible operative treatment if necessary - Discussed the role of diet in the management of his diabetes - c/w IVF@150 2. DM2 - Hold his metformin, actos, and Trulicity - Start SSI and accuchecks ACHS 3. HTN/HLD - stable - c/w Losartan, metopriolol, ASA, chlorthalidone and lipitor 4. H/o PE - he is currently on coumadin - Will hold coumadin for now, his PE were in 2014 and if that was the first PE, then he does not require life-long anticoagulation - Cannot find any mention in his chart about a-fib DVT: SCDs, INR this am was 3.0 Diet: Clears Code Visit Inpatient E&M: 66337 Subs Hosp L2
--- NOTE | 2018-03-25 09:06 | PCA ---
pt off floor
[2018-03-25 09:11] LABS: Reflex Lactate? Y
[2018-03-25 10:09] LABS: Lactic Acid 2.2 mmol/L (0.4-2.0)
[2018-03-25] MEDS: 0.9% Normal Saline 1,000 ML 150 ML IV (10:12)
[2018-03-25] MEDS: Vancomycin IV 1,000 MG/200 ML BAG 200 MG IV ×2 (10:14→21:47)
[2018-03-25] MEDS: Metoprolol(XL)Succ 200 MG Tablet PO (10:15)
[2018-03-25 11:40] LABS: Bedside Glucose 237 mg/dL (70-110)
[2018-03-25] MEDS: Insulin Lispro 100 UNIT/ML INSULN.PEN SQ (12:44)
--- NOTE | 2018-03-25 13:03 | PCA ---
pt off floor
--- NOTE | 2018-03-25 13:24 | CASEMGMT ---
RN CM Assessment completed, see Link. DC PLAN: undetermined -Pt independent, no DME use prior to admission. -For I/D today. Will follow for dc needs (IV antibiotics if osteo?). Kelly CARRASCON RN ACM
--- NOTE | 2018-03-25 15:18 | PCA ---
pt off floor
--- NOTE | 2018-03-25 16:18 | PCM.IMDPSTOP ---
Immediate Post-Op Note Date of Procedure: 03/25/18 Primary Surgeon/Physician: Zachary Obregon DPM senior php web developer: None Pre-Operative Diagnosis: diabetic foot infection with osteomyelitis, right hallux Post-Operative Diagnosis: diabetic foot infection with osteomyelitis of right hallux Surgery/Procedure Performed:: right hallux amputation Description of Surgical Findings:: there was extensive purulent and necrotic tissue at level of right hallux distal phalanx, right hallux proximal phalanx with necrotic changes extending to proximal phalanx base 1st metatarsal was found to be healthy. Estimated Blood Loss: 20 cc Specimen's removed: right hallux distal phalanx for pathology and micro. right 1st metatarsal head for pathology and micro Type of Anesthesia:: General ASA Class: ASA3 Plus Emergency
--- NOTE | 2018-03-25 16:21 | OP.PN_ITS ---
Immediate Post-Op Note Date of Procedure: 03/25/18 Primary Surgeon/Physician: Zachary Obregon DPM precision assembler: None Pre-Operative Diagnosis: diabetic foot infection with osteomyelitis, right hallux Post-Operative Diagnosis: diabetic foot infection with osteomyelitis of right hallux Surgery/Procedure Performed:: right hallux amputation Description of Surgical Findings:: there was extensive purulent and necrotic tissue at level of right hallux distal phalanx, right hallux proximal phalanx with necrotic changes extending to proximal phalanx base 1st metatarsal was found to be healthy. Estimated Blood Loss: 20 cc Specimen's removed: right hallux distal phalanx for pathology and micro. right 1st metatarsal head for pathology and micro Type of Anesthesia:: General ASA Class: ASA3 Plus Emergency
--- NOTE | 2018-03-25 16:58 | SUR.PHASEI ---
1642: pt pulling off ekg leads, pulse ox, oxygen, clothes and attempting to get out of bed. unable to state where he is at. unable to follow commands. safety monitoring device applied to wrists. Dr Martines notified, new orders obtained.
[2018-03-25 17:15] LABS: Bedside Glucose 165 mg/dL (70-110)
[2018-03-25 18:30] LABS: Bedside Glucose 169 mg/dL (70-110)
[2018-03-25] MEDS: 0.9% Normal Saline 1,000 ML 100 ML IV (18:36)
--- NOTE | 2018-03-25 19:10 | RAD_ITS ---
STUDY: X-RAY - RIGHT FOOT CLINICAL: Male, 72 years old. Status post amputation. TECHNIQUE: 3 view(s) of the foot. COMPARISON: MRI earlier today.. FINDINGS: Since prior exam, there has been amputation of the first toe to the level of the metatarsophalangeal joint. There is prominent soft tissue irregularity and there may be an open wound and soft tissue air extending down to the surface of the first metatarsal. Findings are consistent with the recent surgery. However soft tissue infection cannot be excluded. RAD/Foot min 3 Views IMPRESSION: Immediately status post amputation of the first toe. Question open wound of the soft tissues distal to the first metatarsal. Electronically Signed: Nash Park MD at 20:01 EDT , Service support ,
--- NOTE | 2018-03-25 20:12 | PCM.OPRPT ---
Report of Operation Date of Procedure: 03/25/18 Pre-Operative Diagnosis: diabetic foot infection with osteomyelitis, right hallux Post-Operative Diagnosis: diabetic foot infection with osteomyelitis of right hallux Surgery/Procedure Performed:: right hallux amputation Description of Surgical Findings:: there was extensive purulent and necrotic tissue at level of right hallux distal phalanx, right hallux proximal phalanx with necrotic changes extending to proximal phalanx base 1st metatarsal was found to be healthy. loom control chain builder: None Type of Anesthesia:: General Specimen's removed: right hallux distal phalanx for pathology and micro. right 1st metatarsal head for pathology and micro Estimated Blood Loss (mL): 20 cc Description of Procedure: Patient is a 72 year old male with diabetic neuropathy who is currently admitted to hospital for diabetic foot infection of his right hallux. He apparently developed this ulceration of right hallux some time in January but he did not seek any medical attention until March 06. He states he has had a lot going on and going to the doctor's for wound care was not something he was able to do. He was initially treated for the diabetic foot ulceration with santyl and was being followed weekly by me. xrays were ordered March 06 and last week at which time there was no evidence of osteomyelitis. I have recommended offloading with surgical boot but he has not used. I have discussed casting but he has opted against. He has been wearing his diabetic shoes. Last week, the wound was treated with agnes and forefoot wedge shoe. Over the past day, there has been redness developing to his right foot and there has been purulence to right hallux ipj. he presented to hospital where xrays were performed and demonstrated concern for osteomyelitis of right hallux distal phalanx. podiatry was consulted. I examined patient where I found large ulceration of right hallux ipj with extensive purulent drainage. preliminary cultures of right hallux ulceration show staph aureus. I ordered mri which demonstrated destructive changes of distal phalanx consistent for osteomyelitis. further, there was large abscess to plantar lateral hallux and there was marrow edema of right hallux proximal phalanx concerning for reactive changes vs osteomyelitis. I proposed surgical intervention to patient to include incision and drainage of right hallux with partial vs total amputation of right hallux. I informed patient that I will make intra-operative decision pending the appearance of bone. if the proximal phalanx appears healthy and the tissue around the hallux is viable, we can try and salvage as much of the toe as possible. If the proximal phalanx is nonviable and/or the tissue around the bone is nonviable, salvaging the proximal phalanx may be challenging. On exam, patient has large ulceration to the central hallux ipj and he now has new ulceration to lateral aspect of hallux ipj. I informed patient that the soft-tissue around the bone may be challenging to save the entire toe and therefore, entire amputation may be inevitable. Patient has given me permission to perform what is necessary to salvage his foot. patient understands the goal of this surgery is to eliminate the infection from his foot. He has given me permission to perform incision and drainage with amputation of toe. he has granted permission to perform total toe amputation if necessary. I have discussed risks of surgery not limited to infection, pain, swelling, bleeding, hematoma, need for further bone resection, possible transfer lesions to neighboring toes/metatarsal, loss of leg, loss of life. Patient understands that following surgery, his gait may be altered and he may require modification to his diabetic shoes/inserts. All questions have been answered. patient has consented to proceed with incision and drainage with right hallux amputation. patient was transferred from pre-op holding area to operating room and placed on operating room table in supine position. he was identified by name and procedure. the right lower extremity was draped with tourniquet but never inflated during case. Inspection of right hallux had 2 ulceration to hallux ipj with extensive purulent drainage. the right lower extremity was prepped and draped in usual aseptic technique. The patient was placed under general anesthesia and local injection with 1% lidocaine plain was given. Time-out was performed making note of procedure and personal involved. Attention was then directed to the right foot. a linear incision was performed at the medial aspect of right 1st mtpj. at the level of hallux ipj, a fish mouth incision was incorporated excising both plantar hallux ulceration. The incision was carried deep to level of bone. All bleeding tissue was cauterized as needed. There was extensive purulence along the lateral aspect of right hallux ipj and this purulence extended plantarly along the hallux ipj and also extended proximally just plantar to proximal phlanx. The distal phalanx at base of hallux ipj was found to be necrotic and nonviable. there was an accessory bone plantar to hallux ipj and this was disarticulated when excising the distal phalanx. The distal phalanx was found to be extremely soft, blackened, nonviable and had significant purulence when excised. A sample of the distal phalanx was sent for pathology and micro and labeled as pre-lavage distal phalanx. at the level of head of proximal phalanx, there was signficant nonviable soft-tissue and this was debrided with combination of rongeur and 15 blade. the head of the proximal phalanx appeared necrotic, soft, nonviable. using a sagittal saw, I initially resected the proximal phalanx to the proximal 1/3. I made resection orientated dorsal distal to plantar proximal. I irrigated the surgical site with 4000 cc of normal saline. After excising the distal 2/3 of the proximal phalanx, I found the remaining proximal phalanx to be soft, necrotic, with purulence expressed with resection. I found the tissue surrounding the mid shaft of proximal phalanx to be fibrotic slough and nidus for possible infection. At this time, given the appearance of intra-op soft-tissue, appearance of remaining proximal phalanx, and concern for further infection spreading proximally, I felt that leaving the remaining proximal phalanx would not be enough to eliminate this infection. I felt it was necesary to resect the entire toe to allow further debridement and elimination of nonviable tissue. I went and discussed my intra-operative findings with patient . I informed patient about the aggressive nature of this infection and the rationale for further debridement. I informed patient that Mr. Szymanski and I have had discussion regarding potential intra-op findings and if any need for further debridement was necessary, patient had expressed verbal consent. Patient was in favor of doing what was necessary. I returned to the operating room. After donning on new sterile gown and gloves, I redirected my attention to the remaining proximal phlanx. I dissected proximally where I found another pocket of purulence just lateral to the base of proximal phalanx extending to plantar hallux. I dissected the remaining proximal phalanx from the level of mtpj and passed the remaining bone to back table. I inspected the plantar tissue at level of mtpj. there was nonviable tissue at the plantar aspect of mtpj and this was dissected out. the plantar sesamoids were further dissected. the fibular sesamoid was completely excised and found to be bipartie. I inspected the remaining tissue at the level of metatarsal head and following debridement, I found good bleeding subcutaneous tissue, no purulence and the 1st metatarsal appeared healthy. I irrigated the surgical site with an additional 2000 cc of normal saline. clean gloves and instruments were then used. A sample of the 1st metatarsal was sent for pathology and micro. The distal aspect of the incision was closed with 2-0 nylon and the proximal aspect was packed open. sterile dressing consisting of adaptic, 4x4 yu, bernie was applied. counts were correct. patient was awakened and transferred to pacu where he care was directed to anesthesia department. I will perform daily wound irriagtion. I will plan on closing wound on Saturday. I do recommend placement to rehab at discharge. I will consult infectious disease to assist in management of possible bone infection.
[2018-03-25] MEDS: Atorvastatin Calcium 10 MG Tablet 5 MG PO (21:46)
[2018-03-25] MEDS: Acetaminophen 325 MG Tablet 650 MG PO (22:06)
[2018-03-25 22:20] LABS: Bedside Glucose 184 mg/dL (70-110)
[2018-03-26] VITALS: BP 122/60; PULSE 74; RESP 18; TEMP 37.1; O2SAT 96
[2018-03-26 02:05] VITALS: BP 107/51; PULSE 75; RESP 18; TEMP 37.3; O2SAT 95
[2018-03-26] MEDS: Piperacil/Tazobactam 3.375 GM/50 ML ML IV ×3 (06:36→22:06)
[2018-03-26] MEDS: Insulin Lispro 100 UNIT/ML INSULN.PEN SQ ×4 (06:37→22:05)
[2018-03-26 06:41] LABS: Bedside Glucose 188 mg/dL (70-110)
[2018-03-26 06:44] LABS: Absolute Lymphocyte Count 1.14 X10^3/ul (0.83-4.51); Absolute Neutrophil Count 8.3 X10^3/uL (2.0-7.7); Basophil# 0.02 X10^3/uL; Basophil% 0.2 % (0-1); Eosinophil# 0.21 X10^3/uL; Hematocrit 29.9 % (40-54); Hemoglobin 9.5 g/dl (13.0-16.5); Lymphocyte # 1.14 X10^3/ul (4.0); Lymphocyte % 10.7 % (19-41); Mean Corp Hgb Conc 31.8 g/gl (32-36); Mean Corpuscular Hgb 26.9 pg (27.0-32.0); Mean Corpuscular Volume 84.7 fL (80-94); Mean Platelet Vol. 8.9 fl (6.2-12.0); Monocyte# 0.93 X10^3/uL; Monocyte% 8.8 % (0-10); Neutrophil # 8.25 X10^3/uL (2.7-7.7); Neutrophil % 77.7 % (47-70); Platelet Count 277 K/mm3 (150-450); RBC Distribution Width CV 13.8 % (11.6-14.6); RBC Distribution Width SD 42.6 fl (35.1-43.9); Red Blood Count 3.53 M/mm3 (4.6-6.2); White Blood Count 10.6 K/mm3 (4.4-11.0)
[2018-03-26 06:47] LABS: POSITIVE COUNT NO; POSITIVE DIFFERENTIAL NO; POSITIVE MORPHOLOGY NO
[2018-03-26 06:49] LABS: Anion Gap 12 (5-15); BUN 23 mg/dL (7-18); BUN/Creat Ratio 15.1 RATIO (10-20); Chloride 101 mmol/L (98-107); Creatinine, Serum 1.52 mg/dL (0.70-1.30); EST Glomerular Filtration Rate 48 mL/min (>60); Est Glom Filt Rate - Afr Amer 59 mL/min (>60); Estimated Creatinine Clearance 49.63 ml/min; Glucose 185 mg/dL (74-106); Potassium 3.3 mmol/L (3.5-5.1); Sodium Level 140 mmol/L (136-145)
--- NOTE | 2018-03-26 07:24 | PCM.PN.SRG ---
Patient Problems: Active and Suspected Problems Ulcer of right great toe due to diabetes mellitus (Acute) Osteomyelitis (Acute) Subjective: Patient seen this morning s/p right hallux amputation. Patient pain controlled. Patient denies n/v/f/c. Objective: patient is alert, orientated x 3. He is in good mood. He has no apparent distress Right foot with dressing removed. No active bleeding noted. No purulence noted. redness to right foot improved. incision to right foot packed open. distal wound edges slightly macerated. deep tissue appears free of any purulence. no duskyness noted of incision. no warmth to right foot. no calf pain - Physical Exam Vital Signs Temp Pulse Resp BP Pulse Ox 99.1 F 75 18 107/51 L 95 03/26/18 02:05 03/26/18 02:05 03/26/18 02:05 03/26/18 02:05 03/26/18 02:05 Oxygen Flow Rate (L/min) 2 Oxygen Delivery Method Room Air Weight: 122.8 kg Body Mass Index (BMI) 35.9 Finger Stick Blood Glucose 165 Intake and Output for Last 24 Hours 03/24/18 03/25/18 03/26/18 23:59 23:59 23:59 Intake Total 3961 / 3961 1953 / 1953 Output Total 450 / 450 700 / 700 Balance 3511 / 3511 1253 / 1253 Laboratory Tests Past 24 Hrs 03/25/18 03/26/18 03/26/18 09:35 06:10 06:10 WBC 10.6 RBC 3.53 L Hgb 9.5 L Hct 29.9 L MCV 84.7 MCH 26.9 L MCHC 31.8 L RDW 13.8 RDW Differential 42.6 Plt Count 277 MPV 8.9 Immature Gran % (Auto) 0.600 Neut % (Auto) 77.7 H Lymph % (Auto) 10.7 L Morrill % (Auto) 8.8 Eos % (Auto) 2.0 Baso % (Auto) 0.2 Absolute Neuts (auto) 8.3 H Absolute Lymphs (auto) 1.14 Total Counted Not Reportable Sodium 140 Potassium 3.3 L Chloride 101 Carbon Dioxide 27.0 Anion Gap 12 BUN 23 H Creatinine 1.52 H Estim Creat Clear Calc 49.63 Est GFR (MDRD) Af Amer 59 L Est GFR (MDRD) Non-Af 48 L BUN/Creatinine Ratio 15.1 Glucose 185 H Lactic Acid 2.2 H Calcium 8.0 L POC Glucose 03/26/18 03/25/18 03/25/18 06:36 21:46 18:28 POC Glucose 188 H 184 H 169 H 03/25/18 03/25/18 16:48 11:16 POC Glucose 165 H 237 H Medical Necessity - Tobacco Use Smoking Status: Never smoker Assessment/Plan All Active Problems Ulcer of right great toe due to diabetes mellitus (Acute) Osteomyelitis (Acute) Vertigo (Acute) Cough (Acute) (dyspnea on exertion) (Acute) Pulmonary emboli (Acute) H/O aortic valve repair (Resolved) H/O thoracic aortic aneurysm repair (Resolved) Nausea (Resolved) PAF (paroxysmal atrial fibrillation) (Resolved) Patient was examined and informed of current findings patient is s/p right hallux amputation. preliminary cultures on wound show staph aureus. bone cultures still pending. continue with antibiotics. recommend infectioius disease consult. Today, sterile irrigation of wound was performed and packing was applied to right foot. I will plan on performing this daily. preliminary plan is to perform delayed closure on saturday today, there is slight maceration along incision. dressed wound with betadine, guaze, yu bernie. patient understands and informed that this infection was bad. soft-tissue/skin will influence if any further bone resection is necessary. discussed rehab placement with and patient. is interested in rehab. patient is going to consider. I do recommend placing heel pads on both feet while in bed ok to place weight to heel with walking.
[2018-03-26 08:00] VITALS: BP 112/71; PULSE 71; RESP 18; TEMP 37.1; O2SAT 98
[2018-03-26] MEDS: 0.9% Normal Saline 1,000 ML 100 ML IV (08:10)
[2018-03-26] MEDS: Aspirin 81 MG TAB.CHEW PO (08:13)
--- NOTE | 2018-03-26 08:23 | RAD_ITS ---
STUDY: X-RAY - RIGHT FOOT CLINICAL: Infection. TECHNIQUE: 3 view(s) of the foot. COMPARISON: Radiographs 03/25/2018. FINDINGS: There is a plantar calcaneal enthesophyte. Normal visualized subtalar, talonavicular, calcaneocuboid, tarsal and tarsometatarsal articulations. Normal metatarsi without erosion of the first metatarsal. 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 Normal second through fifth metatarsophalangeal joints. Normal interphalangeal joints and phalanges of the lesser toes. There are swelling and soft tissue gas at the recent amputation site. RAD/Foot min 3 Views IMPRESSION: Status post amputation of the first digit the level of the metatarsophalangeal joint. Electronically Signed: Tyler Neal MD at 10:54 EDT Tel , Service support ,
--- NOTE | 2018-03-26 09:47 | ECHOCS_ITS ---
Version 2 Reason For Study: Murmur, + MSSA Bacteremia Procedure This was a 2D Doppler, Color Flow transthoracic echocardiogram. Exam performed portable in patient room. Left Ventricle Mild concentric left ventricular hypertrophy. The estimated ejection fraction is 65 %. Stage 1 diastolic dysfunction. No regional wall motion abnormalities noted. Right Ventricle Normal size and thickness. Normal systolic function. Atria Normal left atrium. Normal right atrium. Normal atrial septum. Mitral Valve The mitral valve is structurally normal. No prolapse or stenosis seen. Mild (1+) mitral valve insufficiency. Tricuspid Valve Normal tricuspid valve. Mild (1+) tricuspid valve insufficiency. Right ventricular systolic pressure estimated to be 30 mmHg. Aortic Valve Trisinus/trileaflet aortic valve. Mild diffuse aortic valve thickening. Trivial aortic valve insufficiency. Bioprosthetic aortic valve. Stable appearing bioprosthetic aortic valve apparatus. Pulmonic Valve Normal pulmonic valve. Trivial eccentric pulmonic valve insufficiency. Great Vessels Normal aortic root. Normal arch. Normal inferior vena cava. Inferior vena cava collapse with sniff. Pericardium/Pleural No pericardial effusion. MMode/2D Measurements & Calculations LVIDd: 5.0 cm IVSd: 1.4 cm LVOT diam: 2.3 cm LVIDs: 3.2 cm LVPWd: 1.4 cm LVOT area: 4.2 cm2 RVDd: 3.9 cm FS: 35.2 % Ao root diam: 3.2 cm LAV(MOD-bp): 68.1 ml LVAd ap4: 33.4 cm2 LA dimension: 4.7 cm LAV(MOD-bp) Indexed: 28.1 ml/m2 EDV(MOD-sp4): 105.3 ml LAV(MOD-sp2): 76.7 ml EDV(sp4-el): 107.3 ml LAV(MOD-sp4): 51.2 ml LVAs ap4: 17.1 cm2 ESV(MOD-sp4): 36.0 ml ESV(sp4-el): 34.2 ml EF(MOD-sp4): 65.9 % EF(sp4-el): 68.1 % SV(MOD-sp4): 69.4 ml SV(sp4-el): 73.1 ml LA A4 area: 18.3 cm2 RA A4 area: 16.1 cm2 Doppler Measurements & Calculations MV E max saud: 106.8 cm/sec Lat Peak E' Saud: 9.6 cm/sec Med Peak E' Saud: 8.1 cm/sec MV A max saud: 82.7 cm/sec E/E' lat: 11.2 E/E' med: 13.2 MV E/A: 1.3 Ao V2 max: 186.4 cm/sec LV V1 max: 139.7 cm/sec SV(LVOT): 123.2 ml Ao max P.9 mmHg LV V1 max P.8 mmHg Ao V2 mean: 118.8 cm/sec LV V1 mean P.2 mmHg Ao mean P.4 mmHg LV V1 mean: 96.4 cm/sec Ao V2 VTI: 36.7 cm LV V1 VTI: 29.1 cm CONCHIS(I,D): 3.4 cm2 CONCHIS(V,D): 3.2 cm2 PA V2 max: 96.3 cm/sec TR max saud: 252.1 cm/sec TR max P.4 mmHg Interpretation Summary The estimated ejection fraction is 65 %. Stage 1 diastolic dysfunction. Mild (1+) mitral valve insufficiency. Mild (1+) tricuspid valve insufficiency. Right ventricular systolic pressure estimated to be 30 mmHg. Trivial aortic valve insufficiency. Compared to echo report dated 09/17/2013, LV function has remained the samre, LVH has gone from severe to mild. Stable appearing bioprosthetic aortic valve apparatus. The study was technically difficult. There is no evidence of a mass or vegetation. This does not rule out endocarditis. Ordering Physician: Smith Leija Referring Physician: Chidi Christian Performed By: Crys Thomson, BATSHEVA, RVT
[2018-03-26 10:27] VITALS: PULSE 70
[2018-03-26] MEDS: Metoprolol(XL)Succ 200 MG Tablet PO (10:27)
--- NOTE | 2018-03-26 11:26 | CASEMGMT ---
SW spoke w/pt in room, as RN had indicated pt may want to go to TCU at discharge. SW called TCU, message left inquiring about bed availability. Also, as per ID, pt will need 4 weeks of IV antibiotics. SW spoke w/pt in the room in regard to discharge plan. Pt states would like to consider the possibility of going to TCU at discharge. SW explained to pt the SNF level of care, and also explained to pt how Medicare covers. Pt states understanding. SW explained will find out about bed availability and will let this SW know. FEDERICO Shields, MANAGER OF COMPENSATION
[2018-03-26 11:45] LABS: Bedside Glucose 240 mg/dL (70-110)
--- NOTE | 2018-03-26 11:59 | MRI_ITS ---
STUDY: MRI RIGHT FOREFOOT WITHOUT CONTRAST REASON FOR EXAM: Amputation right hallux 03/25/2018, soft tissue gas on radiographs. TECHNIQUE: Standardized fat and water weighted pulse sequences were obtained in all 3 orthogonal planes. COMPARISON: MRI images 03/25/2018 and radiographs 03/26/2018. FINDINGS: There is interval development of amputation at the level the first metatarsophalangeal joint. Normal first metatarsal. There is a postoperative fluid collection/edema, at the amputation site with 2 pockets of postoperative gas (T2 series 4 images 9-11; T2 sagittal images 17, 18), the larger pocket measuring 1.3 cm in length. There is edema in the subcutis adipose space MRI/Lower Ext/No Jt/w/o IMPRESSION: Amputation of the hallux with postoperative fluid collection/hematoma containing postoperative pockets of gas at the amputation site. Electronically Signed: Tyler Neal MD at 15:34 EDT Tel , Service support ,
--- NOTE | 2018-03-26 12:09 | CON.PCM_ITS ---
Problem List (1) Osteomyelitis Status: Acute Qualifiers: Osteomyelitis type: unspecified type Osteomyelitis location: foot Laterality: right Qualified Code(s): M86.9 - Osteomyelitis, unspecified Reason for Consult: bacteremia Consulted by: Dr. Nguyen History of Present Illness: The patient is a 72 year old M with DM neuropathy presented with worsening R 1st toe redness, swelling, pain, purulent drainage, and fever/chills. Developed ulcer on R 1st toe about a month ago, no known trauma. Followed with podiatry, no recent outpt abx, no prior h/o staph infection. Foot worsened acutely over few days prior to presentation to ED 03/24. Had redness going up foot. MRI showed osteo, taken to OR 03/[address] Obregon for toe amputation. Bcx now with mssa. On vanc/zosyn. Feeling better. No new joint/back pain. Full ROS performed and neg except as noted above. 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) DM II (diabetes mellitus, type II), controlled (Chronic) HTN (hypertension) (Chronic) Allergies/Adverse Reactions: Allergies No Known Allergies Allergy (Verified 03/24/18 21:16) Home Medications: Ambulatory Orders Medication Instructions Recorded Metoprolol(XL)Succ [Toprol Xl 200 mg PO DAILY 09/16/13 (Beta Red)] Aspirin [Aspirin, Baby] 81 mg PO DAILY@0800 #30 tab.chew 09/19/13 Warfarin [Coumadin] 5 mg PO DAILY #30 tablet 09/19/13 Chlorthalidone 25 mg PO DAILY 03/24/18 Dulaglutide [Trulicity] 1.5 mg SQ QWEEK 03/24/18 Losartan Potassium 50 mg PO DAILY 03/24/18 Metformin HCl [Metformin HCl ER] 1,000 mg PO BID 03/24/18 Pioglitazone [Actos] 30 mg PO DAILY 03/24/18 Atorvastatin Calcium [Lipitor] 10 mg PO QHS 03/25/18 - Social History Tobacco Use: non-smoker Vital Signs Temp Pulse Resp BP Pulse Ox 98.7 F 70 18 112/71 98 03/26/18 08:00 03/26/18 10:27 03/26/18 08:00 03/26/18 08:00 03/26/18 08:00 Oxygen Flow Rate (L/min) 2 Oxygen Delivery Method Room Air Weight: 122.8 kg Body Mass Index (BMI) 35.9 Finger Stick Blood Glucose 165 Microbiology Past 72 Hours 03/25/18 16:52 Gram Stain - Final Bone - Toe Wound Culture - Preliminary Staphylococcus aureus 03/25/18 16:52 Gram Stain - Final Tissue - Toe Wound Culture - Preliminary Staphylococcus aureus Laboratory Tests Past 24 Hrs 03/26/18 03/26/18 06:10 06:10 WBC 10.6 RBC 3.53 L Hgb 9.5 L Hct 29.9 L MCV 84.7 MCH 26.9 L MCHC 31.8 L RDW 13.8 RDW Differential 42.6 Plt Count 277 MPV 8.9 Immature Gran % (Auto) 0.600 Neut % (Auto) 77.7 H Lymph % (Auto) 10.7 L Kemper % (Auto) 8.8 Eos % (Auto) 2.0 Baso % (Auto) 0.2 Absolute Neuts (auto) 8.3 H Absolute Lymphs (auto) 1.14 Total Counted Not Reportable Sodium 140 Potassium 3.3 L Chloride 101 Carbon Dioxide 27.0 Anion Gap 12 BUN 23 H Creatinine 1.52 H Estim Creat Clear Calc 49.63 Est GFR (MDRD) Af Amer 59 L Est GFR (MDRD) Non-Af 48 L BUN/Creatinine Ratio 15.1 Glucose 185 H Calcium 8.0 L - Other Studies Radiology: [] reviewed Other Studies: [] Route of nutrition/ use of supplements: [] Nutritional Intake: [] IV Site: [] Rodrigues Catheter: [] - Physical Exam General: Alert, Oriented x3, Cooperative HEENT: Atraumatic, PERRLA, EOMI Neck: Supple, No Nodes Lungs: Clear to auscultation, Normal air movement Cardiovascular: Regular rate, Regular Rhythm, Murmur Abdomen: Soft, Non Tender, Non-Distended Extremities: No edema Skin: Incision - R foot wrapped, - - splinter hemorrhage on R thumb IV Site: Peripheral, without redness Musculoskeletal: No Tenderness to Palpation of Joints or Extremities - no back or joint pain Neurological: Cranial nerves II-XII grossly intact - Assessment/Plan Antibiotics: [] Assessment/Plan: [] Active and Suspected Problems Ulcer of right great toe due to diabetes mellitus (Acute) Osteomyelitis (Acute) severe sepsis (fever, leukocytosis, ANTHONY, lactic acidosis) due to MSSA bacteremia from R 1st toe osteo - MRI with ? involvement of 1st phalanx. Now s/ p toe amp by Dr. Obregon 03/25. Has soft murmur at LUSB. No foreign material in his body. Will repeat bcx, check TTE, and stop vanc. Cont zosyn. Initial wound cx now also showing GNR. Will follow, thank you.
[2018-03-26 16:06] LABS: Bedside Glucose 187 mg/dL (70-110)
--- NOTE | 2018-03-26 16:30 | PCM.PN.HOSP ---
Patient Problems: Active and Suspected Problems Ulcer of right great toe due to diabetes mellitus (Acute) Osteomyelitis (Acute) Subjective: f/u for diabetic foot ulcer with infection abscess and osteomyelitis of the right hallux patient seen and examined chart reviewed denies any fever or chills Vitals/I&O's: Vital Signs Temp Pulse Resp BP Pulse Ox 98.7 F 70 18 112/71 98 03/26/18 08:00 03/26/18 10:27 03/26/18 08:00 03/26/18 08:00 03/26/18 08:00 Oxygen Flow Rate (L/min) 2 Oxygen Delivery Method Room Air Weight: 122.8 kg Body Mass Index (BMI) 35.9 Finger Stick Blood Glucose 165 Intake and Output for Last 24 Hours 03/24/18 03/25/18 03/26/18 23:59 23:59 23:59 Intake Total 3961 / 3961 3253 / 3253 Output Total 450 / 450 1400 / 1400 Balance 3511 / 3511 1853 / 1853 General: Alert, Oriented x3, Cooperative, No apparent distress HEENT: Atraumatic Oral: Moist Mucosa Neck: Supple Lungs: - - non labored Abdomen: - - MWR Extremities: - - dressing over right foot Skin: No rashes Neurological: Cranial nerves II-XII grossly intact, Neuro grossly intact Psych/Mental Status: Normal Affect, Appropriate Microbiology Past 72 Hours 03/25/18 16:52 Bone - Toe Gram Stain - Final 03/25/18 16:52 Bone - Toe Wound Culture - Preliminary Staphylococcus aureus 03/25/18 16:52 Tissue - Toe Gram Stain - Final 03/25/18 16:52 Tissue - Toe Wound Culture - Preliminary Staphylococcus aureus Laboratory Results 03/25/18 16:48: POC Glucose 165 H 03/25/18 18:28: POC Glucose 169 H 03/25/18 21:46: POC Glucose 184 H 03/26/18 06:10: WBC 10.6, RBC 3.53 L, Hgb 9.5 L, Hct 29.9 L, MCV 84.7, MCH 26.9 L, MCHC 31.8 L, RDW 13.8, RDW Differential 42.6, Plt Count 277, MPV 8.9, Immature Gran % (Auto) 0.600, Neut % (Auto) 77.7 H, Lymph % (Auto) 10.7 L, [place] % (Auto) 8.8, Eos % (Auto) 2.0, Baso % (Auto) 0.2, Absolute Neuts (auto) 8.3 H, Absolute Lymphs (auto) 1.14, Total Counted Not Reportable 03/26/18 06:10: Sodium 140, Potassium 3.3 L, Chloride 101, Carbon Dioxide 27.0, Anion Gap 12, BUN 23 H, Creatinine 1.52 H, Estim Creat Clear Calc 49.63, Est GFR (MDRD) Af Amer 59 L, Est GFR (MDRD) Non-Af 48 L, BUN/Creatinine Ratio 15.1, Glucose 185 H, Calcium 8.0 L 03/26/18 06:36: POC Glucose 188 H 03/26/18 11:30: POC Glucose 240 H 03/26/18 15:55: POC Glucose 187 H Current Medications Acetaminophen (Tylenol) 650 mg PO Q6H PRN PRN PRN Reason: Mild Pain (scale 0-3)/T>100.7 Last Admin: 03/25/18 22:06 Dose: 650 mg Aspirin (Aspirin, Baby) 81 mg PO DAILY@0800 [facility] Last Admin: 03/26/18 08:13 Dose: 81 mg Atorvastatin Calcium (Lipitor) 5 mg PO QHS [facility] Last Admin: 03/25/18 21:46 Dose: 5 mg Dextrose (D50w Syringe) 0 gm IV X1 PRN; Protocol PRN Reason: Hypoglycemia Glucagon () 1 mg IM .X1 PRN PRN Reason: Hypoglycemia Piperacillin Sod/Tazobactam Sod (Zosyn) 3.375 gm in 50 mls @ 12.5 mls/hr IV Q8 [facility] Last Admin: 03/26/18 13:26 Dose: 12.5 mls/hr Sodium Chloride () 250 mls @ 15 mls/hr IV .[id number] PRN PRN Reason: SALINE FLUSH Potassium Chloride/Sodium Chloride () 1,000 mls @ 125 mls/hr IV .Q8H [facility] Last Admin: 03/26/18 10:25 Dose: 125 mls/hr Insulin Glargine (Lantus (Bkc)) 12 units SC DAILY [facility] Last Admin: 03/26/18 11:32 Dose: 12 u Insulin Human Lispro (Humalog Kwikpen (Bkc)) 0 unit SQ ACHS FRED PRN Reason: Protocol Last Admin: 03/26/18 11:33 Dose: 4 u Magnesium Hydroxide (Milk Of Magnesia) 30 ml PO DAILY PRN PRN PRN Reason: Constipation Metoprolol Succinate (Toprol Xl (Beta Red)) 200 mg PO DAILY [facility] Last Admin: 03/26/18 10:27 Dose: 200 mg Sodium Chloride () 5 - 30 ml IV UD PRN PRN Reason: SALINE FLUSH Medical Necessity - Tobacco Use Smoking Status: Never smoker Assessment/Plan All Active Problems Ulcer of right great toe due to diabetes mellitus (Acute) Osteomyelitis (Acute) Vertigo (Acute) Cough (Acute) (dyspnea on exertion) (Acute) Pulmonary emboli (Acute) H/O aortic valve repair (Resolved) H/O thoracic aortic aneurysm repair (Resolved) Nausea (Resolved) PAF (paroxysmal atrial fibrillation) (Resolved) 1. Sepsis with staph aureus bacteremia 2/2 most likely osteomyelitis from a diabetic foot wound as Staph aureus also cultured from wound. On appropriate IV antibiotics 2. 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 Appreciate input from Podiatry surgery 3. DM2 - Metformin, Actos, and Trulicity on hold - Started SSI and will add basal insulin as well 4. HTN. Well controlled on current regimen and will continue to monitor 5. ANTHONY. creatinine solis to 1.7 from baseline of 0.9. Beginning to improve with IVFs and clearance of infection. Hold diuretics and ARBs/ACEI 6. Hypokalemia. Will replete orally. Code Visit Inpatient E&M: 65955 Subs Hosp L3
--- NOTE | 2018-03-26 16:41 | PN_ITS ---
Patient Problems: Active and Suspected Problems Ulcer of right great toe due to diabetes mellitus (Acute) Osteomyelitis (Acute) Subjective: f/u for diabetic foot ulcer with infection abscess and osteomyelitis of the right hallux patient seen and examined chart reviewed denies any fever or chills Vitals/I&O's: Vital Signs Temp Pulse Resp BP Pulse Ox 98.7 F 70 18 112/71 98 03/26/18 08:00 03/26/18 10:27 03/26/18 08:00 03/26/18 08:00 03/26/18 08:00 Oxygen Flow Rate (L/min) 2 Oxygen Delivery Method Room Air Weight: 122.8 kg Body Mass Index (BMI) 35.9 Finger Stick Blood Glucose 165 Intake and Output for Last 24 Hours 03/24/18 03/25/18 03/26/18 23:59 23:59 23:59 Intake Total 3961 / 3961 3253 / 3253 Output Total 450 / 450 1400 / 1400 Balance 3511 / 3511 1853 / 1853 General: Alert, Oriented x3, Cooperative, No apparent distress HEENT: Atraumatic Oral: Moist Mucosa Neck: Supple Lungs: - - non labored Abdomen: - - MWR Extremities: - - dressing over right foot Skin: No rashes Neurological: Cranial nerves II-XII grossly intact, Neuro grossly intact Psych/Mental Status: Normal Affect, Appropriate Microbiology Past 72 Hours 03/25/18 16:52 Bone - Toe Gram Stain - Final 03/25/18 16:52 Bone - Toe Wound Culture - Preliminary Staphylococcus aureus 03/25/18 16:52 Tissue - Toe Gram Stain - Final 03/25/18 16:52 Tissue - Toe Wound Culture - Preliminary Staphylococcus aureus Laboratory Results 03/25/18 16:48: POC Glucose 165 H 03/25/18 18:28: POC Glucose 169 H 03/25/18 21:46: POC Glucose 184 H 03/26/18 06:10: WBC 10.6, RBC 3.53 L, Hgb 9.5 L, Hct 29.9 L, MCV 84.7, MCH 26.9 L, MCHC 31.8 L, RDW 13.8, RDW Differential 42.6, Plt Count 277, MPV 8.9, Immature Gran % (Auto) 0.600, Neut % (Auto) 77.7 H, Lymph % (Auto) 10.7 L, [place] % (Auto) 8.8, Eos % (Auto) 2.0, Baso % (Auto) 0.2, Absolute Neuts (auto) 8.3 H, Absolute Lymphs (auto) 1.14, Total Counted Not Reportable 03/26/18 06:10: Sodium 140, Potassium 3.3 L, Chloride 101, Carbon Dioxide 27.0, Anion Gap 12, BUN 23 H, Creatinine 1.52 H, Estim Creat Clear Calc 49.63, Est GFR (MDRD) Af Amer 59 L, Est GFR (MDRD) Non-Af 48 L, BUN/Creatinine Ratio 15.1, Glucose 185 H, Calcium 8.0 L 03/26/18 06:36: POC Glucose 188 H 03/26/18 11:30: POC Glucose 240 H 03/26/18 15:55: POC Glucose 187 H Current Medications Acetaminophen (Tylenol) 650 mg PO Q6H PRN PRN PRN Reason: Mild Pain (scale 0-3)/T>100.7 Last Admin: 03/25/18 22:06 Dose: 650 mg Aspirin (Aspirin, Baby) 81 mg PO DAILY@0800 [facility] Last Admin: 03/26/18 08:13 Dose: 81 mg Atorvastatin Calcium (Lipitor) 5 mg PO QHS [facility] Last Admin: 03/25/18 21:46 Dose: 5 mg Dextrose (D50w Syringe) 0 gm IV X1 PRN; Protocol PRN Reason: Hypoglycemia Glucagon () 1 mg IM .X1 PRN PRN Reason: Hypoglycemia Piperacillin Sod/Tazobactam Sod (Zosyn) 3.375 gm in 50 mls @ 12.5 mls/hr IV Q8 [facility] Last Admin: 03/26/18 13:26 Dose: 12.5 mls/hr Sodium Chloride () 250 mls @ 15 mls/hr IV .[id number] PRN PRN Reason: SALINE FLUSH Potassium Chloride/Sodium Chloride () 1,000 mls @ 125 mls/hr IV .Q8H [facility] Last Admin: 03/26/18 10:25 Dose: 125 mls/hr Insulin Glargine (Lantus (Bkc)) 12 units SC DAILY [facility] Last Admin: 03/26/18 11:32 Dose: 12 u Insulin Human Lispro (Humalog Kwikpen (Bkc)) 0 unit SQ ACHS FRED PRN Reason: Protocol Last Admin: 03/26/18 11:33 Dose: 4 u Magnesium Hydroxide (Milk Of Magnesia) 30 ml PO DAILY PRN PRN PRN Reason: Constipation Metoprolol Succinate (Toprol Xl (Beta Red)) 200 mg PO DAILY [facility] Last Admin: 03/26/18 10:27 Dose: 200 mg Sodium Chloride () 5 - 30 ml IV UD PRN PRN Reason: SALINE FLUSH Medical Necessity - Tobacco Use Smoking Status: Never smoker Assessment/Plan All Active Problems Ulcer of right great toe due to diabetes mellitus (Acute) Osteomyelitis (Acute) Vertigo (Acute) Cough (Acute) (dyspnea on exertion) (Acute) Pulmonary emboli (Acute) H/O aortic valve repair (Resolved) H/O thoracic aortic aneurysm repair (Resolved) Nausea (Resolved) PAF (paroxysmal atrial fibrillation) (Resolved) 1. Sepsis with staph aureus bacteremia 2/2 most likely osteomyelitis from a diabetic foot wound as Staph aureus also cultured from wound. On appropriate IV antibiotics 2. 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 Appreciate input from Podiatry surgery 3. DM2 - Metformin, Actos, and Trulicity on hold - Started SSI and will add basal insulin as well 4. HTN. Well controlled on current regimen and will continue to monitor 5. ANTHONY. creatinine solis to 1.7 from baseline of 0.9. Beginning to improve with IVFs and clearance of infection. Hold diuretics and ARBs/ACEI 6. Hypokalemia. Will replete orally. Code Visit Inpatient E&M: 38310 Subs Hosp L3
[2018-03-26 16:49] VITALS: BP 111/65; PULSE 70; RESP 18; TEMP 36.7; O2SAT 98
--- NOTE | 2018-03-26 17:03 | CHAPLAIN ---
patient was not in his room and bed was gone as well; left a calling card
[2018-03-26 22:05] VITALS: BP 120/63; PULSE 64; RESP 16; TEMP 37.2; O2SAT 98
[2018-03-26] MEDS: Atorvastatin Calcium 10 MG Tablet 5 MG PO (22:05)
[2018-03-26] MEDS: Glucerna Shake 120 ML LIQUID PO (22:06)
[2018-03-26 22:16] LABS: Bedside Glucose 224 mg/dL (70-110)
[2018-03-27 03:52] VITALS: BP 117/59; PULSE 58; RESP 18; TEMP 37.2; O2SAT 95
[2018-03-27] MEDS: Piperacil/Tazobactam 3.375 GM/50 ML ML IV ×3 (06:05→21:32)
[2018-03-27] MEDS: Insulin Lispro 100 UNIT/ML INSULN.PEN SQ ×4 (06:26→21:32)
[2018-03-27 06:36] LABS: Bedside Glucose 181 mg/dL (70-110)
[2018-03-27 06:56] LABS: Absolute Lymphocyte Count 1.49 X10^3/ul (0.83-4.51); Absolute Neutrophil Count 4.9 X10^3/uL (2.0-7.7); Basophil# 0.03 X10^3/uL; Basophil% 0.4 % (0-1); Eosinophil# 0.37 X10^3/uL; Eosinophils% 4.8 % (0-5); Hematocrit 28.1 % (40-54); Hemoglobin 9.2 g/dl (13.0-16.5); Lymphocyte # 1.49 X10^3/ul (4.0); Lymphocyte % 19.4 % (19-41); Mean Corp Hgb Conc 32.7 g/gl (32-36); Mean Corpuscular Hgb 28.2 pg (27.0-32.0); Mean Corpuscular Volume 86.2 fL (80-94); Mean Platelet Vol. 8.6 fl (6.2-12.0); Monocyte# 0.79 X10^3/uL; Monocyte% 10.3 % (0-10); Neutrophil # 4.86 X10^3/uL (2.7-7.7); Platelet Count 298 K/mm3 (150-450); RBC Distribution Width CV 13.6 % (11.6-14.6); RBC Distribution Width SD 41.9 fl (35.1-43.9); Red Blood Count 3.26 M/mm3 (4.6-6.2); White Blood Count 7.7 K/mm3 (4.4-11.0)
[2018-03-27 07:03] LABS: POSITIVE COUNT YES; POSITIVE DIFFERENTIAL NO; POSITIVE MORPHOLOGY YES
--- NOTE | 2018-03-27 07:40 | CON.PCM_ITS ---
Reason for Consult Date of Consultation: 03/27/18 History of Present Illness: The patient is a 72 year old male with history of diabetes was seen for second opinion (consulted by Dr. Obregon) on patient's right foot. Patient had ulceration to the plantar right hallux and he developed significant infection, Cultures growing MSSA, also blood cultures with MSSA. MRI was consistent with osteomyelitis to the distal phalanx as well as proximal phalanx of the hallux, there was significant purulence and cellulitis present. Patient had elevated WBC. Patient was taken to the operating room for debridement and hallux amputation which was left open for drainage. Post operative xrays of the foot showed gas in the tissues, MRI also showed 2 pockets of gas at the amputation site. Patient's WBC returned to normal, and cellulitis resolved, and foot looking much better. Patient is afebrile. Dr. Obregon is tentatively planning to take patient for delayed primary closure on Saturday. Infectious Disease is following patient, and patient is on IV antibiotics at this time. Patient resting comfortably in bed. 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) DM II (diabetes mellitus, type II), controlled (Chronic) HTN (hypertension) (Chronic) Allergies No Known Allergies Allergy (Verified 03/24/18 21:16) Home Medications: Ambulatory Orders Medication Instructions Recorded Metoprolol(XL)Succ [Toprol Xl 200 mg PO DAILY 09/16/13 (Beta Red)] Aspirin [Aspirin, Baby] 81 mg PO DAILY@0800 #30 tab.chew 09/19/13 Warfarin [Coumadin] 5 mg PO DAILY #30 tablet 09/19/13 Chlorthalidone 25 mg PO DAILY 03/24/18 Dulaglutide [Trulicity] 1.5 mg SQ QWEEK 03/24/18 Losartan Potassium 50 mg PO DAILY 03/24/18 Metformin HCl [Metformin HCl ER] 1,000 mg PO BID 03/24/18 Pioglitazone [Actos] 30 mg PO DAILY 03/24/18 Atorvastatin Calcium [Lipitor] 10 mg PO QHS 03/25/18 Surgical History: - - Repair of a thoracic aortic aneurysm and aortic valve repair in 2006. Patient also had an MRSA infection in his abdomen before and had quite extensive debridement. Smoking Status: Never smoker - *Family History Maternal History Items: No pertinent history Review of Systems Constitutional: Denies: Chills, Fever Gastrointestinal: Denies: Nausea, Vomiting Patient Problems: Active and Suspected Problems Ulcer of right great toe due to diabetes mellitus (Acute) Osteomyelitis (Acute) Objective: Pre op MRI right foot reviewed: There is evidence of osteomyelitis to the distal and proximal phalanx of the hallux. Post op MRI right foot reviewed: There are two pockets of gas localized at the hallux amputation site c/w post op changes. Post op xrays right foot reviewed: s/p right hallux amputation with gas noted localized at the amputation site c/w normal post op changes. - Physical Exam General: Alert, Oriented x3, Cooperative, No apparent distress Extremities: Capillary Refill Less than 3 Seconds, Peripheral Pulses Normal, - - Right foot: Open hallux amputation, there are overall healthy viable skin flaps with some nonviable tissue to the medial aspect (which will likely need debrided on Saturday), the underlying 1st metatarsal bone is healthy, white and viable in appearance w/ intact viable cartilage, there is no noted necrosis, no fluctuance, no crepitus, no visible abscess, no purulence, no maloder present; no cellulitis noted to the foot and no other open ulcerations noted to the foot. Appears right foot edema is improved. Sensation is diminished c/w peripheral neuropathy. There is no evidence of acute ischemia to the right foot , and reportably patient has noninvasive lower extremity arterial studies this year which showed good arterial flow to the foot. Musculoskeletal: No Tenderness to Palpation of Joints or Extremities Psych/Mental Status: Appropriate, Alert and oriented to time, place, person, mood and affect Vital Signs Temp Pulse Resp BP Pulse Ox 98.9 F 58 L 18 117/59 L 95 03/27/18 03:52 03/27/18 03:52 03/27/18 03:52 03/27/18 03:52 03/27/18 03:52 Oxygen Flow Rate (L/min) 2 Oxygen Delivery Method Room Air Weight: 122.8 kg Body Mass Index (BMI) 35.9 Finger Stick Blood Glucose 165 Intake and Output for Last 24 Hours 03/25/18 03/26/18 03/27/18 23:59 23:59 23:59 Intake Total 3961 / 3961 5053 / 5053 1843 / 1843 Output Total 450 / 450 1400 / 1400 Balance 3511 / 3511 3653 / 3653 1843 / 1843 Microbiology Past 72 Hours 03/25/18 16:52 Gram Stain - Final Bone - Toe Wound Culture - Preliminary Staphylococcus aureus 03/25/18 16:52 Gram Stain - Final Tissue - Toe Wound Culture - Preliminary Staphylococcus aureus Laboratory Tests Past 24 Hrs 03/27/18 06:40 WBC 7.7 RBC 3.26 L Hgb 9.2 L Hct 28.1 L MCV 86.2 MCH 28.2 MCHC 32.7 RDW 13.6 RDW Differential 41.9 Plt Count 298 MPV 8.6 Immature Gran % (Auto) 2.100 H Neut % (Auto) 63.0 Lymph % (Auto) 19.4 [place] % (Auto) 10.3 H Eos % (Auto) 4.8 Baso % (Auto) 0.4 Absolute Neuts (auto) 4.9 Absolute Lymphs (auto) 1.49 Total Counted Not Reportable Diff Path Review November POC Glucose 03/27/18 03/26/18 03/26/18 06:25 22:03 15:55 POC Glucose 181 H 224 H 187 H 03/26/18 11:30 POC Glucose 240 H Assessment/Plan All Active Problems Ulcer of right great toe due to diabetes mellitus (Acute) Osteomyelitis (Acute) Vertigo (Acute) Cough (Acute) (dyspnea on exertion) (Acute) Pulmonary emboli (Acute) H/O aortic valve repair (Resolved) H/O thoracic aortic aneurysm repair (Resolved) Nausea (Resolved) PAF (paroxysmal atrial fibrillation) (Resolved) Cellulitis, Abscess, Osteomyelitis Right Hallux s/p open amputation Diabetes with peripheral neuropathy Bacteremia/Sepsis Reviewed diagnostic data, examined patient with Dr. Obregon and discussed case with him today. Patient is on antibiotic therapy per Infectious Disease service. Agree post operative gas in tissues as seen on the post operative xrays and MRI is consistent with air at the open amputation site, does not appear to be due to residual infection. Foot clinically significantly improved with hallux amputation/debridement. Agree with Dr. Obregon's plan of return to OR for debridement of open wound edges with delayed primary closure, it does not appear any further bone resection will be needed at this time as bone appears healthy and viable. If problems healing in future consider wound vac, wound center referral w/ possible hyperbaric oxygen therapy. Dr. Obregon will continue to follow and manage patient from podiatric standpoint, and I will see patient as needed. Thank you for consultation.
[2018-03-27 08:25] VITALS: BP 115/58; PULSE 70; RESP 18; TEMP 36.4; O2SAT 97
[2018-03-27 08:27] VITALS: PULSE 70
[2018-03-27] MEDS: Metoprolol(XL)Succ 200 MG Tablet PO (08:27)
[2018-03-27] MEDS: Aspirin 81 MG TAB.CHEW PO (08:27)
[2018-03-27] MEDS: Glucerna Shake 120 ML LIQUID PO ×4 (08:29→21:32)
--- NOTE | 2018-03-27 10:42 | PN.ID_ITS ---
Patient Problems: Active and Suspected Problems Ulcer of right great toe due to diabetes mellitus (Acute) Osteomyelitis (Acute) Subjective: Feeling better, minimal pain in foot. No fever, no n/v/d. - Physical Exam General: Alert, Cooperative, No apparent distress Lungs: Clear to auscultation, Normal air movement Cardiovascular: Regular rate, Regular Rhythm Abdomen: Soft, Non Tender, Non-Distended Skin: Ulcer/ Wound - R foot wrapped Vital Signs Temp Pulse Resp BP Pulse Ox 97.6 F L 70 18 115/58 L 97 03/27/18 08:25 03/27/18 08:27 03/27/18 08:25 03/27/18 08:25 03/27/18 08:25 Oxygen Flow Rate (L/min) 2 Oxygen Delivery Method Room Air Weight: 122.8 kg Body Mass Index (BMI) 35.9 Finger Stick Blood Glucose 165 Intake and Output for Last 24 Hours 03/25/18 03/26/18 03/27/18 23:59 23:59 23:59 Intake Total 3961 / 3961 5053 / 5053 1843 / 1843 Output Total 450 / 450 1400 / 1400 Balance 3511 / 3511 3653 / 3653 1843 / 1843 Microbiology Past 72 Hours 03/25/18 16:52 Gram Stain - Final Bone - Toe Wound Culture - Final Staphylococcus aureus 03/25/18 16:52 Gram Stain - Final Tissue - Toe Wound Culture - Final Staphylococcus aureus Laboratory Tests Past 24 Hrs 03/27/18 06:40 WBC 7.7 RBC 3.26 L Hgb 9.2 L Hct 28.1 L MCV 86.2 MCH 28.2 MCHC 32.7 RDW 13.6 RDW Differential 41.9 Plt Count 298 MPV 8.6 Immature Gran % (Auto) 2.100 H Neut % (Auto) 63.0 Lymph % (Auto) 19.4 [place] % (Auto) 10.3 H Eos % (Auto) 4.8 Baso % (Auto) 0.4 Absolute Neuts (auto) 4.9 Absolute Lymphs (auto) 1.49 Total Counted Not Reportable Diff Path Review November POC Glucose 03/27/18 03/26/18 03/26/18 06:25 22:03 15:55 POC Glucose 181 H 224 H 187 H 03/26/18 11:30 POC Glucose 240 H Medical Necessity - Tobacco Use Smoking Status: Never smoker Route of nutrition/ use of supplements: [] Nutritional Intake: [] IV Site: [] Rodrigues Catheter: [] - Assessment/Plan Antibiotics: [] Assessment/Plan: [] Active and Suspected Problems Ulcer of right great toe due to diabetes mellitus (Acute) Osteomyelitis (Acute) severe sepsis (fever, leukocytosis, ANTHONY, lactic acidosis) due to MSSA bacteremia from R 1st toe osteo - MRI with ? involvement of 1st phalanx. Now s/ p toe amp by Dr. Obregon 03/25. Has soft murmur at LUSB and splinter hemorrhage on thumb, but TTE with no veg. Cont zosyn for now. Initial wound cx also with proteus. Plan will be for 6 weeks of iv abx at discharge, likely with q8h cefazolin. Picc placement timing will depend on him clearing his Bcx. Will follow
--- NOTE | 2018-03-27 10:50 | CASEMGMT ---
Addendum entered by Cortney Olivera 03/27/18 14:07: VERO called Anaid at the [facility] to check in on the referral. Karla states they can likely take pt, would prefer pt on Saturday but can take pt on the weekend if needed. Karla asked about pt getting a PICC. SW explained will check in w/physician tomorrow about discharge date, PICC line, and the definite IV's. SW will follow up w/Karla tomorrow. FEDERICO Shields, TUBE DRAWER Original Note: TCU is not able to take this pt. SW spoke w/pt, explained that TCU cannot take this pt. SW gave pt list of nursing homes in the area, discussed discharge options. Pt initially stated he would go home, however upon further discussion, pt asked for a referral be sent to [facility], states his daughter in law Neelam is an RN there. SW explained will send referral. SW called [facility], spoke w/Anaid, referral faxed. SW will continue to follow. FEDERICO Shields, TUBE DRAWER
[2018-03-27 11:50] LABS: Bedside Glucose 245 mg/dL (70-110)
--- NOTE | 2018-03-27 12:43 | PCM.PN.SRG ---
Patient Problems: Active and Suspected Problems Ulcer of right great toe due to diabetes mellitus (Acute) Osteomyelitis (Acute) Subjective: patient is seen at bedside this am. he is resting comfortably with no complaints of pain. denies n/v/f/c. tolerating antibiotic nicely. He is seen at same time as Dr. Mejia. I have asked Dr. Mejia to evaluate patient for 2nd opinion due to severity of infection and post-op xrays suggesting of gas while foot appearing stable. Objective: Patient is alert and oriented x 3. he does not appear in any distress. vascular: DP and Pt pulses are palpable to right foot. Capillary fill time is brisk to skin flaps with mostly healthy appearance, some darkening of distal medial flap. redness improved to left foot. Derm: open wound to left foot s/p amputation. there is no purulence, no evidence of abscess, no drainage. the distal medial flap appears slightly darkened but majority of flap is healthy. there is no pockets of abscess formation. subcutaneous tissue appears mostly healthy. m/s: no calf pain xrays and post-op mri reviewed. concern for gas discussed with radiology. suspect this to be more associated with post-op findings. - Physical Exam Vital Signs Temp Pulse Resp BP Pulse Ox 97.6 F L 70 18 115/58 L 97 03/27/18 08:25 03/27/18 08:27 03/27/18 08:25 03/27/18 08:25 03/27/18 08:25 Oxygen Flow Rate (L/min) 2 Oxygen Delivery Method Room Air Weight: 122.8 kg Body Mass Index (BMI) 35.9 Finger Stick Blood Glucose 165 Intake and Output for Last 24 Hours 03/25/18 03/26/18 03/27/18 23:59 23:59 23:59 Intake Total 3961 / 3961 5053 / 5053 2507 / 2507 Output Total 450 / 450 1400 / 1400 275 / 275 Balance 3511 / 3511 3653 / 3653 2232 / 2232 Microbiology Past 72 Hours 03/25/18 16:52 Gram Stain - Final Bone - Toe Wound Culture - Final Staphylococcus aureus 03/25/18 16:52 Gram Stain - Final Tissue - Toe Wound Culture - Final Staphylococcus aureus Laboratory Tests Past 24 Hrs 03/27/18 06:40 WBC 7.7 RBC 3.26 L Hgb 9.2 L Hct 28.1 L MCV 86.2 MCH 28.2 MCHC 32.7 RDW 13.6 RDW Differential 41.9 Plt Count 298 MPV 8.6 Immature Gran % (Auto) 2.100 H Neut % (Auto) 63.0 Lymph % (Auto) 19.4 [place] % (Auto) 10.3 H Eos % (Auto) 4.8 Baso % (Auto) 0.4 Absolute Neuts (auto) 4.9 Absolute Lymphs (auto) 1.49 Total Counted Not Reportable Diff Path Review May POC Glucose 03/27/18 03/27/18 03/26/18 11:43 06:25 22:03 POC Glucose 245 H 181 H 224 H 03/26/18 15:55 POC Glucose 187 H Medical Necessity - Tobacco Use Smoking Status: Never smoker Assessment/Plan All Active Problems Ulcer of right great toe due to diabetes mellitus (Acute) Osteomyelitis (Acute) Vertigo (Acute) Cough (Acute) (dyspnea on exertion) (Acute) Pulmonary emboli (Acute) H/O aortic valve repair (Resolved) H/O thoracic aortic aneurysm repair (Resolved) Nausea (Resolved) PAF (paroxysmal atrial fibrillation) (Resolved) patient was examined and informed of findings today, sterile irrigation was performed of right foot I have asked Dr. Mejia to assist in evaluation/consultation of this foot given past severity of infection and post-op xrays concerning for gas. I do not see any active infection or pus on clinical exam. redness has resolved, skin is normal in color with exception to distal medial flap that I will debride tomorrow and perform delayed closure. I do not see any need for additional bone resection provided I have enough skin for closure. I have spoken with Dr. Mejia who agrees. continue with antibiotics per ID will plan for delayed closure tomorrow.
[2018-03-27 14:20] VITALS: BP 107/55; PULSE 66; RESP 18; TEMP 36.6; O2SAT 99
[2018-03-27] MEDS: 0.9% NaCl IVPB Med Flush (250 mL) 15 ML IV (14:24)
--- NOTE | 2018-03-27 15:04 | CHAPLAIN ---
Type of Pastoral Visit _x__ Initial Visit ___ Follow-up Visit ___ On-call Visit ___ General Patient Visit ___ Spiritual Assessment ___ Family Conference ___ Bereavement ___ Rapid Response ___ Code Blue ___ Other (describe below) Pastoral Care Referral From _x__ Patient ___ Family ___ Nurse ___ Physician ___ Setter Induction Heating Equipment ___ Investment Consultant ___ Other (describe below) Sacrament/Intervention _x__ Active listening ___ Anointing ___ Sikh ___ Bereavement ___ Communion _x__ Elaine exploration ___ _x__ Life review _x__ Prayer ___ Reconciliation ___ Sacrament of Sick ___ Supportive presence ___ Wedding ___ Other (describe below) Pastoral Comments patient talks about healing but says that is about two things; pt says about healing from his yarsani closing its doors and having to find a new yarsani; pt talks about getting therapy for his body and seeing what his options are at this time;
--- NOTE | 2018-03-27 15:52 | PCM.PN.HOSP ---
Patient Problems: Active and Suspected Problems Ulcer of right great toe due to diabetes mellitus (Acute) Osteomyelitis (Acute) Subjective: f/u for diabetic foot infection and sepsis patient seen and examined No new complaints Vitals/I&O's: Vital Signs Temp Pulse Resp BP Pulse Ox 97.8 F 66 18 107/55 L 99 03/27/18 14:20 03/27/18 14:20 03/27/18 14:20 03/27/18 14:20 03/27/18 14:20 Oxygen Flow Rate (L/min) 2 Oxygen Delivery Method Room Air Weight: 122.8 kg Body Mass Index (BMI) 35.9 Finger Stick Blood Glucose 165 Intake and Output for Last 24 Hours 03/25/18 03/26/18 03/27/18 23:59 23:59 23:59 Intake Total 3961 / 3961 5053 / 5053 2507 / 2507 Output Total 450 / 450 1400 / 1400 275 / 275 Balance 3511 / 3511 3653 / 3653 2232 / 2232 General: Alert, Oriented x3, Cooperative - mildly ill looking and weak HEENT: Atraumatic Oral: Moist Mucosa Neck: Supple Lungs: - - non labored Extremities: - - dressing over right foot Neurological: Cranial nerves II-XII grossly intact, Neuro grossly intact Psych/Mental Status: Anxious Microbiology Past 72 Hours 03/25/18 16:52 Bone - Toe Gram Stain - Final 03/25/18 16:52 Bone - Toe Wound Culture - Final Staphylococcus aureus 03/25/18 16:52 Tissue - Toe Gram Stain - Final 03/25/18 16:52 Tissue - Toe Wound Culture - Final Staphylococcus aureus Laboratory Results 03/26/18 15:55: POC Glucose 187 H 03/26/18 22:03: POC Glucose 224 H 03/27/18 06:25: POC Glucose 181 H 03/27/18 06:40: WBC 7.7, RBC 3.26 L, Hgb 9.2 L, Hct 28.1 L, MCV 86.2, MCH 28.2, MCHC 32.7, RDW 13.6, RDW Differential 41.9, Plt Count 298, MPV 8.6, Immature Gran % (Auto) 2.100 H, Neut % (Auto) 63.0, Lymph % (Auto) 19.4, [place] % (Auto) 10.3 H, Eos % (Auto) 4.8, Baso % (Auto) 0.4, Absolute Neuts (auto) 4.9, Absolute Lymphs (auto) 1.49, Total Counted Not Reportable, Diff Path Review November03/27/18 11:43: POC Glucose 245 H Current Medications Acetaminophen (Tylenol) 650 mg PO Q6H PRN PRN PRN Reason: Mild Pain (scale 0-3)/T>100.7 Last Admin: 03/25/18 22:06 Dose: 650 mg Aspirin (Aspirin, Baby) 81 mg PO DAILY@0800 [facility] Last Admin: 03/27/18 08:27 Dose: 81 mg Atorvastatin Calcium (Lipitor) 40 mg PO QHS [facility] Dextrose (D50w Syringe) 0 gm IV X1 PRN; Protocol PRN Reason: Hypoglycemia Glucagon () 1 mg IM .X1 PRN PRN Reason: Hypoglycemia Piperacillin Sod/Tazobactam Sod (Zosyn) 3.375 gm in 50 mls @ 12.5 mls/hr IV Q8 [facility] Last Admin: 03/27/18 14:24 Dose: 12.5 mls/hr Sodium Chloride () 250 mls @ 15 mls/hr IV .[id number] PRN PRN Reason: SALINE FLUSH Last Admin: 03/27/18 14:24 Dose: 15 mls/hr Potassium Chloride/Sodium Chloride () 1,000 mls @ 125 mls/hr IV .Q8H [facility] Last Admin: 03/27/18 12:22 Dose: 125 mls/hr Insulin Glargine (Lantus (Bkc)) 12 units SC DAILY [facility] Last Admin: 03/27/18 08:27 Dose: 12 u Insulin Human Lispro (Humalog Kwikpen (Bkc)) 0 unit SQ ACHS [facility] PRN Reason: Protocol Last Admin: 03/27/18 12:22 Dose: 4 u Magnesium Hydroxide (Milk Of Magnesia) 30 ml PO DAILY PRN PRN PRN Reason: Constipation Metformin HCl (Glucophage) 1,000 mg PO BIDCM [facility] Metoprolol Succinate (Toprol Xl (Beta Red)) 200 mg PO DAILY [facility] Last Admin: 03/27/18 08:27 Dose: 200 mg Nutritional Formula (Lactose Free) (Glucerna Shake) 120 ml PO 4X/DAY [facility] Last Admin: 03/27/18 14:24 Dose: 120 ml Sodium Chloride () 5 - 30 ml IV UD PRN PRN Reason: SALINE FLUSH Medical Necessity - Tobacco Use Smoking Status: Never smoker Assessment/Plan All Active Problems Ulcer of right great toe due to diabetes mellitus (Acute) Osteomyelitis (Acute) Vertigo (Acute) Cough (Acute) (dyspnea on exertion) (Acute) Pulmonary emboli (Acute) H/O aortic valve repair (Resolved) H/O thoracic aortic aneurysm repair (Resolved) Nausea (Resolved) PAF (paroxysmal atrial fibrillation) (Resolved) 1. Severe Sepsis with staph aureus bacteremia 2/2 most likely osteomyelitis from a diabetic foot wound as Staph aureus also cultured from wound. On appropriate IV antibiotics 2. 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 Appreciate input from Podiatry surgery 3. DM2 - OHA from home had been held - Started SSI and will add basal insulin as well. Will resume metformin for now Will increase statin for primary CVD prevention 4. HTN. Well controlled on current regimen and will continue to monitor 5. ANTHONY. creatinine solis to 1.7 from baseline of 0.9. Beginning to improve with IVFs and clearance of infection. Continue to hold diuretics and ARBs/ACEI 6. Hypokalemia. Repleted. Code Visit Inpatient E&M: 22592 Subs Hosp L2
--- NOTE | 2018-03-27 15:57 | PN_ITS ---
Patient Problems: Active and Suspected Problems Ulcer of right great toe due to diabetes mellitus (Acute) Osteomyelitis (Acute) Subjective: f/u for diabetic foot infection and sepsis patient seen and examined No new complaints Vitals/I&O's: Vital Signs Temp Pulse Resp BP Pulse Ox 97.8 F 66 18 107/55 L 99 03/27/18 14:20 03/27/18 14:20 03/27/18 14:20 03/27/18 14:20 03/27/18 14:20 Oxygen Flow Rate (L/min) 2 Oxygen Delivery Method Room Air Weight: 122.8 kg Body Mass Index (BMI) 35.9 Finger Stick Blood Glucose 165 Intake and Output for Last 24 Hours 03/25/18 03/26/18 03/27/18 23:59 23:59 23:59 Intake Total 3961 / 3961 5053 / 5053 2507 / 2507 Output Total 450 / 450 1400 / 1400 275 / 275 Balance 3511 / 3511 3653 / 3653 2232 / 2232 General: Alert, Oriented x3, Cooperative - mildly ill looking and weak HEENT: Atraumatic Oral: Moist Mucosa Neck: Supple Lungs: - - non labored Extremities: - - dressing over right foot Neurological: Cranial nerves II-XII grossly intact, Neuro grossly intact Psych/Mental Status: Anxious Microbiology Past 72 Hours 03/25/18 16:52 Bone - Toe Gram Stain - Final 03/25/18 16:52 Bone - Toe Wound Culture - Final Staphylococcus aureus 03/25/18 16:52 Tissue - Toe Gram Stain - Final 03/25/18 16:52 Tissue - Toe Wound Culture - Final Staphylococcus aureus Laboratory Results 03/26/18 15:55: POC Glucose 187 H 03/26/18 22:03: POC Glucose 224 H 03/27/18 06:25: POC Glucose 181 H 03/27/18 06:40: WBC 7.7, RBC 3.26 L, Hgb 9.2 L, Hct 28.1 L, MCV 86.2, MCH 28.2, MCHC 32.7, RDW 13.6, RDW Differential 41.9, Plt Count 298, MPV 8.6, Immature Gran % (Auto) 2.100 H, Neut % (Auto) 63.0, Lymph % (Auto) 19.4, [place] % (Auto) 10.3 H, Eos % (Auto) 4.8, Baso % (Auto) 0.4, Absolute Neuts (auto) 4.9, Absolute Lymphs (auto) 1.49, Total Counted Not Reportable, Diff Path Review November03/27/18 11:43: POC Glucose 245 H Current Medications Acetaminophen (Tylenol) 650 mg PO Q6H PRN PRN PRN Reason: Mild Pain (scale 0-3)/T>100.7 Last Admin: 03/25/18 22:06 Dose: 650 mg Aspirin (Aspirin, Baby) 81 mg PO DAILY@0800 [facility] Last Admin: 03/27/18 08:27 Dose: 81 mg Atorvastatin Calcium (Lipitor) 40 mg PO QHS [facility] Dextrose (D50w Syringe) 0 gm IV X1 PRN; Protocol PRN Reason: Hypoglycemia Glucagon () 1 mg IM .X1 PRN PRN Reason: Hypoglycemia Piperacillin Sod/Tazobactam Sod (Zosyn) 3.375 gm in 50 mls @ 12.5 mls/hr IV Q8 [facility] Last Admin: 03/27/18 14:24 Dose: 12.5 mls/hr Sodium Chloride () 250 mls @ 15 mls/hr IV .[id number] PRN PRN Reason: SALINE FLUSH Last Admin: 03/27/18 14:24 Dose: 15 mls/hr Potassium Chloride/Sodium Chloride () 1,000 mls @ 125 mls/hr IV .Q8H [facility] Last Admin: 03/27/18 12:22 Dose: 125 mls/hr Insulin Glargine (Lantus (Bkc)) 12 units SC DAILY [facility] Last Admin: 03/27/18 08:27 Dose: 12 u Insulin Human Lispro (Humalog Kwikpen (Bkc)) 0 unit SQ ACHS [facility] PRN Reason: Protocol Last Admin: 03/27/18 12:22 Dose: 4 u Magnesium Hydroxide (Milk Of Magnesia) 30 ml PO DAILY PRN PRN PRN Reason: Constipation Metformin HCl (Glucophage) 1,000 mg PO BIDCM [facility] Metoprolol Succinate (Toprol Xl (Beta Red)) 200 mg PO DAILY [facility] Last Admin: 03/27/18 08:27 Dose: 200 mg Nutritional Formula (Lactose Free) (Glucerna Shake) 120 ml PO 4X/DAY [facility] Last Admin: 03/27/18 14:24 Dose: 120 ml Sodium Chloride () 5 - 30 ml IV UD PRN PRN Reason: SALINE FLUSH Medical Necessity - Tobacco Use Smoking Status: Never smoker Assessment/Plan All Active Problems Ulcer of right great toe due to diabetes mellitus (Acute) Osteomyelitis (Acute) Vertigo (Acute) Cough (Acute) (dyspnea on exertion) (Acute) Pulmonary emboli (Acute) H/O aortic valve repair (Resolved) H/O thoracic aortic aneurysm repair (Resolved) Nausea (Resolved) PAF (paroxysmal atrial fibrillation) (Resolved) 1. Severe Sepsis with staph aureus bacteremia 2/2 most likely osteomyelitis from a diabetic foot wound as Staph aureus also cultured from wound. On appropriate IV antibiotics 2. 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 Appreciate input from Podiatry surgery 3. DM2 - OHA from home had been held - Started SSI and will add basal insulin as well. Will resume metformin for now Will increase statin for primary CVD prevention 4. HTN. Well controlled on current regimen and will continue to monitor 5. ANTHONY. creatinine [place] to 1.7 from baseline of 0.9. Beginning to improve with IVFs and clearance of infection. Continue to hold diuretics and ARBs/ACEI 6. Hypokalemia. Repleted. Code Visit Inpatient E&M: 44614 Subs Hosp L2
[2018-03-27] MEDS: metFORMIN HCl 1,000 MG Tablet 1000 MG PO (17:03)
[2018-03-27 17:11] LABS: Bedside Glucose 202 mg/dL (70-110)
[2018-03-27 19:33] VITALS: BP 130/57; PULSE 66; RESP 18; TEMP 36.8; O2SAT 99
[2018-03-27] MEDS: Atorvastatin Calcium 40 MG Tablet PO (21:32)
[2018-03-27 22:01] LABS: Bedside Glucose 210 mg/dL (70-110)
[2018-03-28] VITALS (11 sets, daily range): BP systolic 103–131; BP diastolic 43–72; PULSE 47–99; RESP 16–18; TEMP 36.2–36.9; O2SAT 96–99; BMI 35.9; BMI 35.5
[2018-03-28 05:59] LABS: International Normalized Ratio 2.3; Prothrombin Time (Protime)PT. 25.8 SECONDS (11.7-14.9)
[2018-03-28 06:00] LABS: Partial Thromboplast Time 52.4 Seconds (24.1-36.2)
--- NOTE | 2018-03-28 06:00 | EKG12_ITS ---
Test Reason : AM Blood Pressure : / mmHG Vent. Rate : 061 BPM Atrial Rate : 061 BPM P-R Int : 172 ms QRS Dur : 144 ms QT Int : 500 ms P-R-T Axes : 049 -44 -06 degrees QTc Int : 503 ms Normal sinus rhythm with sinus arrhythmia Left axis deviation Right bundle branch block Abnormal ECG When compared with ECG of 17-SEP-2013 05:51, Inverted T waves have replaced nonspecific T wave abnormality in Inferior leads T wave inversion no longer evident in Anterior leads Confirmed by ANISA COLBERT, YECENIA ([id number]), electronic news gathering editor MARY INMAN ([id number]) on 03/31/2018 3:58:06 PM Referred By: Jesus Burnham Confirmed By:YECENIA LANGE MD
[2018-03-28 06:02] LABS: Absolute Lymphocyte Count 1.97 X10^3/ul (0.83-4.51); Absolute Neutrophil Count 5.4 X10^3/uL (2.0-7.7); Basophil# 0.02 X10^3/uL; Basophil% 0.2 % (0-1); Eosinophil# 0.43 X10^3/uL; Eosinophils% 4.9 % (0-5); Hematocrit 29.1 % (40-54); Hemoglobin 9.2 g/dl (13.0-16.5); Lymphocyte # 1.97 X10^3/ul (4.0); Lymphocyte % 22.6 % (19-41); Mean Corp Hgb Conc 31.6 g/gl (32-36); Mean Corpuscular Hgb 27.1 pg (27.0-32.0); Mean Corpuscular Volume 85.8 fL (80-94); Mean Platelet Vol. 8.7 fl (6.2-12.0); Monocyte# 0.76 X10^3/uL; Monocyte% 8.7 % (0-10); Neutrophil # 5.41 X10^3/uL (2.7-7.7); Neutrophil % 62.2 % (47-70); POSITIVE COUNT NO; POSITIVE DIFFERENTIAL NO; POSITIVE MORPHOLOGY NO; Platelet Count 317 K/mm3 (150-450); RBC Distribution Width CV 14.1 % (11.6-14.6); RBC Distribution Width SD 44.6 fl (35.1-43.9); Red Blood Count 3.39 M/mm3 (4.6-6.2); White Blood Count 8.7 K/mm3 (4.4-11.0)
[2018-03-28] MEDS: Piperacil/Tazobactam 3.375 GM/50 ML ML IV ×3 (06:11→21:43)
[2018-03-28 06:13] LABS: ALB/GLOB Ratio 0.6 RATIO (0.9-2.4); AST(SGOT) 32 U/L (15-37); Alanine Aminotransfer ALT/SGPT 44 U/L (16-61); Albumin, Serum 2.3 g/dL (3.2-5.0); Alkaline Phosphatase 62 U/L (45-117); Anion Gap 9 (5-15); BUN 21 mg/dL (7-18); BUN/Creat Ratio 14.8 RATIO (10-20); Calcium,Total 8.3 mg/dL (8.5-10.1); Chloride 110 mmol/L (98-107); Creatinine, Serum 1.42 mg/dL (0.70-1.30); EST Glomerular Filtration Rate 52 mL/min (>60); Est Glom Filt Rate - Afr Amer 63 mL/min (>60); Estimated Creatinine Clearance 53.13 ml/min; Globulin 3.9 g/dL (2.2-4.2); Glucose 157 mg/dL (74-106); Protein, Total 6.2 g/dL (6.4-8.2); Sodium Level 146 mmol/L (136-145)
[2018-03-28 06:46] LABS: Bedside Glucose 148 mg/dL (70-110)
[2018-03-28 07:16] LABS: Hemoglobin A1c 8.1 % (4.2-6.3)
--- NOTE | 2018-03-28 07:22 | PN.SURG_ITS ---
Patient Problems: Active and Suspected Problems Ulcer of right great toe due to diabetes mellitus (Acute) Osteomyelitis (Acute) Subjective: patient seen this morning resting comfortably. denies n/v/f/c. anticipating surgery today for delayed closure Objective: patient is alert and orientated. no acute distress right foot incision appears healthy with exception to distal medial skin flap. there is no purulence on examination of open wound. there is no redness. there is mostly granular tissue along deep surgical wound with some fibrotic slough distally. there is no signs of deep space abscess. wbc is wnl bone culture of 1st metatarsal still with no growth. bone culture of hallux showing staph aureus. - Physical Exam Vital Signs Temp Pulse Resp BP Pulse Ox 98.4 F 59 L 16 103/43 L 96 03/28/18 01:56 03/28/18 01:56 03/28/18 01:56 03/28/18 01:56 03/28/18 01:56 Oxygen Flow Rate (L/min) 2 Oxygen Delivery Method Room Air Weight: 122.8 kg Body Mass Index (BMI) 35.9 Finger Stick Blood Glucose 165 Intake and Output for Last 24 Hours 03/26/18 03/27/18 03/28/18 23:59 23:59 23:59 Intake Total 5053 / 5053 3669 / 3669 1967 / 1967 Output Total 1400 / 1400 700 / 700 575 / 575 Balance 3653 / 3653 2969 / 2969 1392 / 1392 Microbiology Past 72 Hours 03/25/18 16:52 Gram Stain - Final Bone - Toe Wound Culture - Final Staphylococcus aureus 03/25/18 16:52 Gram Stain - Final Tissue - Toe Wound Culture - Final Staphylococcus aureus Laboratory Tests Past 24 Hrs 03/27/18 03/28/18 03/28/18 06:40 05:15 05:15 WBC 8.7 RBC 3.39 L Hgb 9.2 L Hct 29.1 L MCV 85.8 MCH 27.1 MCHC 31.6 L RDW 14.1 RDW Differential 44.6 H Plt Count 317 MPV 8.7 Immature Gran % (Auto) 1.400 H Neut % (Auto) 62.2 Lymph % (Auto) 22.6 [place] % (Auto) 8.7 Eos % (Auto) 4.9 Baso % (Auto) 0.2 Absolute Neuts (auto) 5.4 Absolute Lymphs (auto) 1.97 Total Counted Not Reportable Diff Path Review May foll PT INR APTT Sodium 146 H Potassium 4.0 Chloride 110 H Carbon Dioxide 27.0 Anion Gap 9 BUN 21 H Creatinine 1.42 H Estim Creat Clear Calc 53.13 Est GFR (MDRD) Af Amer 63 Est GFR (MDRD) Non-Af 52 L BUN/Creatinine Ratio 14.8 Glucose 157 H Hemoglobin A1c Calcium 8.3 L Total Bilirubin 0.40 AST 32 ALT 44 Alkaline Phosphatase 62 Total Protein 6.2 L Albumin 2.3 L Globulin 3.9 Albumin/Globulin Ratio 0.6 L 03/28/18 03/28/18 05:15 05:15 WBC RBC Hgb Hct MCV MCH MCHC RDW RDW Differential Plt Count MPV Immature Gran % (Auto) Neut % (Auto) Lymph % (Auto) [place] % (Auto) Eos % (Auto) Baso % (Auto) Absolute Neuts (auto) Absolute Lymphs (auto) Total Counted Diff Path Review PT 25.8 H INR 2.3 APTT 52.4 H Sodium Potassium Chloride Carbon Dioxide Anion Gap BUN Creatinine Estim Creat Clear Calc Est GFR (MDRD) Af Amer Est GFR (MDRD) Non-Af BUN/Creatinine Ratio Glucose Hemoglobin A1c 8.1 H Calcium Total Bilirubin AST ALT Alkaline Phosphatase Total Protein Albumin Globulin Albumin/Globulin Ratio POC Glucose 03/28/18 03/27/18 03/27/18 06:33 21:28 16:59 POC Glucose 148 H 210 H 202 H 03/27/18 11:43 POC Glucose 245 H Medical Necessity - Tobacco Use Smoking Status: Never smoker Assessment/Plan All Active Problems Ulcer of right great toe due to diabetes mellitus (Acute) Osteomyelitis (Acute) Vertigo (Acute) Cough (Acute) (dyspnea on exertion) (Acute) Pulmonary emboli (Acute) H/O aortic valve repair (Resolved) H/O thoracic aortic aneurysm repair (Resolved) Nausea (Resolved) PAF (paroxysmal atrial fibrillation) (Resolved) patient wound examined today. there is no purulence on exam. majority of skin flap appears healthy with exception to distal medial flap. I will plan on debriding this and all nonviable tissue today. I explained to patient plan is to achieve delayed closure. if tissue quality limits my ability to achieve total closure, I may need to resect additional bone. I discussed this with patient today. He would prefer to additional bone resection if he can avoid. He understands that if further bone is resected, he is at greater risk of developing transfer lesions. I informed patient that if I am unable to achieve closure of wound, he may require wound vac. He is fine with this if needed. plan is for delayed closure today and debridement of nonviable tissue and bone. Patient to continue with antibiotics per ID rec recommend rehab at discharge patient concerned about anticipated anesthesia today. I will leave to discretion of anesthesia department. if they can do mac, I would prefer that.
[2018-03-28] MEDS: metFORMIN HCl 1,000 MG Tablet 1000 MG PO ×2 (07:32→17:03)
[2018-03-28] MEDS: Metoprolol(XL)Succ 200 MG Tablet PO (09:19)
[2018-03-28 10:15] LABS: Pathologist Review Reviewed
--- NOTE | 2018-03-28 10:40 | PCM.PN.ID ---
Patient Problems: Active and Suspected Problems Ulcer of right great toe due to diabetes mellitus (Acute) Osteomyelitis (Acute) Subjective: Feeling well, mild loose stool, no fever. - Physical Exam General: Alert, Cooperative, No apparent distress Lungs: Clear to auscultation, Normal air movement Cardiovascular: Regular rate, Regular Rhythm Abdomen: Soft, Non Tender, Non-Distended Skin: Incision - R foot wrapped Vital Signs Temp Pulse Resp BP Pulse Ox 97.4 F L 57 L 18 119/60 98 03/28/18 07:28 03/28/18 09:19 03/28/18 07:28 03/28/18 07:28 03/28/18 07:28 Oxygen Flow Rate (L/min) 2 Oxygen Delivery Method Room Air Weight: 122.8 kg Body Mass Index (BMI) 35.9 Finger Stick Blood Glucose 165 Intake and Output for Last 24 Hours 03/26/18 03/27/18 03/28/18 23:59 23:59 23:59 Intake Total 5053 / 5053 3669 / 3669 1967 / 1967 Output Total 1400 / 1400 700 / 700 575 / 575 Balance 3653 / 3653 2969 / 2969 1392 / 1392 Microbiology Past 72 Hours 03/25/18 16:52 Gram Stain - Final Bone - Toe Wound Culture - Final Staphylococcus aureus 03/25/18 16:52 Gram Stain - Final Tissue - Toe Wound Culture - Final Staphylococcus aureus Laboratory Tests Past 24 Hrs 03/27/18 03/28/18 03/28/18 06:40 05:15 05:15 WBC 8.7 RBC 3.39 L Hgb 9.2 L Hct 29.1 L MCV 85.8 MCH 27.1 MCHC 31.6 L RDW 14.1 RDW Differential 44.6 H Plt Count 317 MPV 8.7 Immature Gran % (Auto) 1.400 H Neut % (Auto) 62.2 Lymph % (Auto) 22.6 [place] % (Auto) 8.7 Eos % (Auto) 4.9 Baso % (Auto) 0.2 Absolute Neuts (auto) 5.4 Absolute Lymphs (auto) 1.97 Total Counted Not Reportable Diff Path Review Reviewed PT INR APTT Sodium 146 H Potassium 4.0 Chloride 110 H Carbon Dioxide 27.0 Anion Gap 9 BUN 21 H Creatinine 1.42 H Estim Creat Clear Calc 53.13 Est GFR (MDRD) Af Amer 63 Est GFR (MDRD) Non-Af 52 L BUN/Creatinine Ratio 14.8 Glucose 157 H Hemoglobin A1c Calcium 8.3 L Total Bilirubin 0.40 AST 32 ALT 44 Alkaline Phosphatase 62 Total Protein 6.2 L Albumin 2.3 L Globulin 3.9 Albumin/Globulin Ratio 0.6 L 03/28/18 03/28/18 05:15 05:15 WBC RBC Hgb Hct MCV MCH MCHC RDW RDW Differential Plt Count MPV Immature Gran % (Auto) Neut % (Auto) Lymph % (Auto) [place] % (Auto) Eos % (Auto) Baso % (Auto) Absolute Neuts (auto) Absolute Lymphs (auto) Total Counted Diff Path Review PT 25.8 H INR 2.3 APTT 52.4 H Sodium Potassium Chloride Carbon Dioxide Anion Gap BUN Creatinine Estim Creat Clear Calc Est GFR (MDRD) Af Amer Est GFR (MDRD) Non-Af BUN/Creatinine Ratio Glucose Hemoglobin A1c 8.1 H Calcium Total Bilirubin AST ALT Alkaline Phosphatase Total Protein Albumin Globulin Albumin/Globulin Ratio POC Glucose 03/28/18 03/27/18 03/27/18 06:33 21:28 16:59 POC Glucose 148 H 210 H 202 H 03/27/18 11:43 POC Glucose 245 H Medical Necessity - Tobacco Use Smoking Status: Never smoker Route of nutrition/ use of supplements: [] Nutritional Intake: [] IV Site: [] Rodrigues Catheter: [] - Assessment/Plan Antibiotics: [] Assessment/Plan: [] Active and Suspected Problems Ulcer of right great toe due to diabetes mellitus (Acute) Osteomyelitis (Acute) severe sepsis (fever, leukocytosis, ANTHONY, lactic acidosis) due to MSSA bacteremia from R 1st toe osteo - MRI with ? involvement of 1st phalanx. Now s/p toe amp by Dr. Obregon 03/25. Has soft murmur at LUSB and splinter hemorrhage on thumb, but TTE with no veg. Cont zosyn for now. Initial wound cx also with proteus. Plan will be for 6 weeks of iv abx at discharge to cover for likely residual osteo and possible endocarditis, likely with q8h cefazolin. Picc placement timing will depend on him clearing his Bcx, likely Saturday. Will follow, d/w primary team
--- NOTE | 2018-03-28 10:55 | CASEMGMT ---
SW spoke w/physicians, pt will be here through the . VERO spoke w/Anaid at [facility], explained pt will be here through the . Also, pt will need IV antibiotics for six weeks and will get a PICC line on Saturday, let Anaid know this as well. She states by Saturday they will have a private room for pt. SW explained will follow up on Saturday. SW faxed updated progress notes and microbiology reports to Anaid at [facility]. SW spoke w/pt at the bedside, let him know that [facility] will have a spot for him on Saturday. Pt was aware, as his daughter in law is an RN at [facility]. SW explained will follow up on Saturday. Pt asked about transport. SW explained we can set up a wheelchair van, did explain this is private pay, or family can take pt. Pt states that most likely his will be able to take him on Saturday. SW to follow up Saturday for anticipated discharge to [facility]. FEDERICO Shields, [employer] OPERATOR HELPER
[2018-03-28] MEDS: Insulin Lispro 100 UNIT/ML INSULN.PEN SQ ×2 (11:04→21:43)
[2018-03-28 11:31] LABS: Bedside Glucose 183 mg/dL (70-110)
--- NOTE | 2018-03-28 13:25 | NURSING ---
CALLED REPORT TO AC AT THIS TIME.
[2018-03-28 13:56] LABS: Bedside Glucose 137 mg/dL (70-110)
--- NOTE | 2018-03-28 16:35 | PCM.IMDPSTOP ---
Immediate Post-Op Note Date of Procedure: 03/25/18 Primary Surgeon/Physician: Zcahary Obregon DPM cake mixer: None Pre-Operative Diagnosis: open wound, right foot Post-Operative Diagnosis: open wound, right foot Surgery/Procedure Performed:: debridement of nonviable tissue with delayed primary closure and placement of drain Description of Surgical Findings:: good healthy granulation tissue s/p debridement. no active purulence or redness or signs of infection. 1st metatarsal appears healthy. Estimated Blood Loss: <10 cc Specimen's removed: none Type of Anesthesia:: Local MAC ASA Class: ASA3 Plus Emergency
--- NOTE | 2018-03-28 16:38 | OP.PN_ITS ---
Immediate Post-Op Note Date of Procedure: 03/25/18 Primary Surgeon/Physician: Zachary Obregon DPM studio potter: None Pre-Operative Diagnosis: open wound, right foot Post-Operative Diagnosis: open wound, right foot Surgery/Procedure Performed:: debridement of nonviable tissue with delayed primary closure and placement of drain Description of Surgical Findings:: good healthy granulation tissue s/p debridement. no active purulence or redness or signs of infection. 1st metatarsal appears healthy. Estimated Blood Loss: <10 cc Specimen's removed: none Type of Anesthesia:: Local MAC ASA Class: ASA3 Plus Emergency
--- NOTE | 2018-03-28 16:54 | PCM.PN.HOSP ---
Patient Problems: Active and Suspected Problems Ulcer of right great toe due to diabetes mellitus (Acute) Osteomyelitis (Acute) Subjective: f/u for infected diabetic foot ulcer and sepsis from the same Patient not in room at this time as down for his surgery Updates obtained from nursing staff Vitals/I&O's: Vital Signs Temp Pulse Resp BP Pulse Ox 97.3 F L 54 L 16 120/64 99 03/28/18 16:38 03/28/18 16:38 03/28/18 16:38 03/28/18 16:38 03/28/18 16:38 Oxygen Flow Rate (L/min) 2 Oxygen Delivery Method Room Air Weight: 122.8 kg Body Mass Index (BMI) 35.9 Finger Stick Blood Glucose 165 Intake and Output for Last 24 Hours 03/26/18 03/27/18 03/28/18 23:59 23:59 23:59 Intake Total 5053 / 5053 3669 / 3669 3674 / 3674 Output Total 1400 / 1400 700 / 700 575 / 575 Balance 3653 / 3653 2969 / 2969 3099 / 3099 Microbiology Past 72 Hours 03/26/18 10:04 Blood Culture (Wb) - Right Hand Blood Culture - Preliminary No growth in 48 hours. 03/25/18 16:52 Bone - Toe Gram Stain - Final 03/25/18 16:52 Bone - Toe Wound Culture - Final Staphylococcus aureus 03/25/18 16:52 Bone - Toe Anaerobic Culture - Final No anaerobic bacteria isolated. 03/25/18 16:52 Tissue - Toe Gram Stain - Final 03/25/18 16:52 Tissue - Toe Wound Culture - Final Staphylococcus aureus 03/25/18 16:52 Tissue - Toe Anaerobic Culture - Final No anaerobic bacteria isolated. Laboratory Results 03/27/18 06:40: Diff Path Review Reviewed 03/27/18 16:59: POC Glucose 202 H 03/27/18 21:28: POC Glucose 210 H 03/28/18 05:15: WBC 8.7, RBC 3.39 L, Hgb 9.2 L, Hct 29.1 L, MCV 85.8, MCH 27.1, MCHC 31.6 L, RDW 14.1, RDW Differential 44.6 H, Plt Count 317, MPV 8.7, Immature Gran % (Auto) 1.400 H, Neut % (Auto) 62.2, Lymph % (Auto) 22.6, [place] % (Auto) 8.7, Eos % (Auto) 4.9, Baso % (Auto) 0.2, Absolute Neuts (auto) 5.4, Absolute Lymphs (auto) 1.97, Total Counted Not Reportable 03/28/18 05:15: Sodium 146 H, Potassium 4.0, Chloride 110 H, Carbon Dioxide 27.0, Anion Gap 9, BUN 21 H, Creatinine 1.42 H, Estim Creat Clear Calc 53.13, Est GFR (MDRD) Af Amer 63, Est GFR (MDRD) Non-Af 52 L, BUN/Creatinine Ratio 14.8, Glucose 157 H, Calcium 8.3 L, Total Bilirubin 0.40, AST 32, ALT 44, Alkaline Phosphatase 62, Total Protein 6.2 L, Albumin 2.3 L, Globulin 3.9, Albumin/Globulin Ratio 0.6 L 03/28/18 05:15: PT 25.8 H, INR 2.3, APTT 52.4 H 03/28/18 05:15: Hemoglobin A1c 8.1 H 03/28/18 06:33: POC Glucose 148 H 03/28/18 11:02: POC Glucose 183 H 03/28/18 13:50: POC Glucose 137 H Current Medications Acetaminophen (Tylenol) 650 mg PO Q6H PRN PRN PRN Reason: Mild Pain (scale 0-3)/T>100.7 Last Admin: 03/25/18 22:06 Dose: 650 mg Aspirin (Aspirin, Baby) 81 mg PO DAILY@0800 [facility] Last Admin: 03/28/18 10:51 Dose: Not Given Atorvastatin Calcium (Lipitor) 40 mg PO QHS [facility] Last Admin: 03/27/18 21:32 Dose: 40 mg Dextrose (D50w Syringe) 0 gm IV X1 PRN; Protocol PRN Reason: Hypoglycemia Glucagon () 1 mg IM .X1 PRN PRN Reason: Hypoglycemia Piperacillin Sod/Tazobactam Sod (Zosyn) 3.375 gm in 50 mls @ 12.5 mls/hr IV Q8 [facility] Last Admin: 03/28/18 13:07 Dose: 12.5 mls/hr Sodium Chloride () 250 mls @ 15 mls/hr IV .[id number] PRN PRN Reason: SALINE FLUSH Last Admin: 03/27/18 14:24 Dose: 15 mls/hr Potassium Chloride/Sodium Chloride () 1,000 mls @ 125 mls/hr IV .Q8H [facility] Last Admin: 03/28/18 03:25 Dose: 125 mls/hr Insulin Glargine (Lantus (Bkc)) 12 units SC DAILY [facility] Last Admin: 03/28/18 07:33 Dose: 12 u Insulin Human Lispro (Humalog Kwikpen ([facility])) 0 unit SQ ACHS [facility] PRN Reason: Protocol Last Admin: 03/28/18 11:04 Dose: 2 u Magnesium Hydroxide (Milk Of Magnesia) 30 ml PO DAILY PRN PRN PRN Reason: Constipation Metformin HCl (Glucophage) 1,000 mg PO BIDCM [facility] Last Admin: 03/28/18 07:32 Dose: 1,000 mg Metoprolol Succinate (Toprol Xl (Beta Red)) 200 mg PO DAILY [facility] Last Admin: 03/28/18 09:19 Dose: 200 mg Nutritional Formula (Lactose Free) (Glucerna Shake) 120 ml PO 4X/DAY [facility] Last Admin: 03/28/18 13:06 Dose: Not Given Sodium Chloride () 5 - 30 ml IV UD PRN PRN Reason: SALINE FLUSH Medical Necessity - Tobacco Use Smoking Status: Never smoker Assessment/Plan All Active Problems Ulcer of right great toe due to diabetes mellitus (Acute) Osteomyelitis (Acute) Vertigo (Acute) Cough (Acute) (dyspnea on exertion) (Acute) Pulmonary emboli (Acute) H/O aortic valve repair (Resolved) H/O thoracic aortic aneurysm repair (Resolved) Nausea (Resolved) PAF (paroxysmal atrial fibrillation) (Resolved) 1. Severe Sepsis with staph aureus bacteremia 2/2 most likely osteomyelitis from a diabetic foot wound as Staph aureus also cultured from wound. On appropriate IV antibiotics 2. Diabetic neuropathic ulcer on the plantar aspect of right hallux with secondary infection, abscess and acute osteomyelitis of the hallux bones Has undergone excision of right Hallux and debridement and now having second surgery at this time and hopefully secondary closure of wound ID following and input appreciated. Appreciate input from Podiatry surgery 3. DM2 - OHA from home had been held - Started SSI and will add basal insulin as well. Resumed metformin and blood glucose levels are better Will increase statin for primary CVD prevention 4. HTN. Well controlled on current regimen and will continue to monitor 5. ANTHONY. creatinine oslis to 1.7 from baseline of 0.9. Beginning to improve with IVFs and clearance of infection. Continue to hold diuretics and ARBs/ACEI 6. Hypokalemia. Repleted. Code Visit Inpatient E&M: 22461 Subs Hosp L1
[2018-03-28] MEDS: Glucerna Shake 120 ML LIQUID PO ×2 (17:04→21:42)
[2018-03-28 17:15] LABS: Bedside Glucose 123 mg/dL (70-110)
[2018-03-28] MEDS: Acetaminophen 325 MG Tablet 650 MG PO (18:36)
--- NOTE | 2018-03-28 21:06 | PCM.OPRPT ---
Report of Operation Date of Procedure: 03/25/18 Pre-Operative Diagnosis: open wound, right foot Post-Operative Diagnosis: open wound, right foot Surgery/Procedure Performed:: debridement of nonviable tissue with delayed primary closure and placement of drain Description of Surgical Findings:: good healthy granulation tissue s/p debridement. no active purulence or redness or signs of infection. 1st metatarsal appears healthy. artist representative: None Type of Anesthesia:: Local MAC Specimen's removed: none Estimated Blood Loss (mL): <10 cc Description of Procedure: Patient is a 72 year old male with history of diabetes who developed ulceration of right hallux. Ulceration failed to improve and later developed infection last weekend. 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 Cultures from his recent surgery have grown staph aureus of the phalanx but the metatarsal still has no growth. he has been treated with daily irrigation for the past 3 days. post-op xrays and mri reviewed with radiology show post-op findings with no residual infection. Clinically, patient infection/redness has resolved. There is mild darkening of distal medial incision which is expected to be debrided today. There is no active purulence of surgical wound. there is no drainage, purulence or signs of infection. majority of subcutaneous tissue is granular with good bleeding tissue. 1st metatarsal appears viable with good color and no signs of necrosis. I have discussed delayed closure of wound. I have informed patient that given the appearance of the distal medial incision, debridement of nonviable tissue will be performed. Patient informed that plan is to close the wound completely but in the event that closure cannot occur, further bone resection is possibility vs applying wound vac. Patient understands that if further bone is resected, it increases risk of transfer lesions. Patient informs me today that he would prefer to keep the head of the metatarsal. He understands that if closure is unable to occur, he would prefer wound vac over further bone resection as he does not want to risk developing transfer lesions. I had discussion with patient with his present and he again stressed that he does not wish to have further bone resected. I discussed risk of procedure today not limited to infection, pain, swelling, bleeding, failure to achieve complete closure thereby requiring wound vac, hematoma, wound dehiscence, need for wound vac at a later time, need for hyperbarics. patient understands that following procedure, he will require nwb to his right foot. if he walks on his foot, he is at risk of wound dehiscence. patient had INR checked upon admission where INR was 3.0. he has been off his coumadin but his INR has only reduced to 2.3 today. I discussed waiting to perform delayed closure until his INR lowers. I am concerned however that waiting until his inr lowers risks inability to achieve closure thereby requiring wound vac. Patient understands risks but would like to proceed with closure today. I informed patient that I will place drain in his foot for any post-op bleeding. Patient consents to proceed with delayed closure of foot wound today. Patient was transferred from pre-op holding area to operating room and placed on operating room table in supine position. he was placed under mac anesthesia. all prior suture was removed. the right foot was prepped and draped in the usual aseptic technique. A time out was performed making note of procedure and personal involved. Injection consisting of local anesthesia was injected to right 1st ray. Attention was then directed to right foot. The distal medial incision was found to be nonviable. A full thickness debridement of the distal plantar medial skin incision was performed. Next, the dorsal skin flap was debrided of nonviable tissue. Subcutaneous tissue was found to be granular with good healthy bleeding. Inspection of the open wound was performed. No pockets of abscess was encountered. The first metatarsal was found to be healthy and viable. Irrigation of the open wound was performed with 4800 cc of normal saline in pulse lavage. following irrigation, all remaining tissue appeared healthy. Cautery was performed and Dheeraj was also used to aide in hemostasis. all active bleeding stopped prior to closure. Closure was performed using 2-0 nylon thru skin and subcutaneous tissue using a deep simple interrupted technique. Nylon was only used for closure due to presence of prior infection and due to the appearance of deep subcutaneous tissue that was found to be very weak/delicate A tls drain was placed. counts were correct at time of closure. a post-op dressing consisting of betadine soaked adaptic, 4x4 guaze, yu and compressive bernie was applied to right foot. patient was transferred to pacu in stable condition. Drain will be removed in 2-3 days. patient is ok for discharge once picc line arranged.
[2018-03-28] MEDS: 0.9% NaCl Peripheral Flush Adult/Peds IV (21:43)
[2018-03-28] MEDS: Atorvastatin Calcium 40 MG Tablet PO (21:43)
[2018-03-28 22:05] LABS: Bedside Glucose 185 mg/dL (70-110)
[2018-03-29 02:12] VITALS: BP 110/54; PULSE 51; RESP 16; TEMP 36.6; O2SAT 97
[2018-03-29] MEDS: Piperacil/Tazobactam 3.375 GM/50 ML ML IV ×3 (05:21→22:04)
[2018-03-29 06:51] LABS: Bedside Glucose 146 mg/dL (70-110)
--- NOTE | 2018-03-29 07:44 | PN.SURG_ITS ---
Patient Problems: Active and Suspected Problems Ulcer of right great toe due to diabetes mellitus (Acute) Osteomyelitis (Acute) Subjective: patient seen at bedside this morning. he is post-op delayed closure of foot. Had pain yesterday but resolved with tylenol. percocet was ordered by hospitalist but patient has yet to take. He does not believe the pain is too intense. patient denies n/v/f/c. he is resting comfortably. Objective: patient is alert and orientated. he does not appear in any distress. right foot with surgical wound reapproximated with suture. there is no redness , no drainage, no signs of infection. skin incision is appropriately approximated with no tension. there is minimal post-op edema. there is tls drain in place with only 4 cc of blood collection. drain was exchanged today and no further blood draining observed. no other sores noted to right foot inspection of left foot shows no decubitus ulceration. no calf pain noted. - Physical Exam Vital Signs Temp Pulse Resp BP Pulse Ox 97.8 F 51 L 16 110/54 L 97 03/29/18 02:12 03/29/18 02:12 03/29/18 02:12 03/29/18 02:12 03/29/18 02:12 Oxygen Flow Rate (L/min) 2 Oxygen Delivery Method Room Air Weight: 122.8 kg Body Mass Index (BMI) 35.9 Finger Stick Blood Glucose 165 Intake and Output for Last 24 Hours 03/27/18 03/28/18 03/29/18 23:59 23:59 23:59 Intake Total 3669 / 3669 3914 / 3914 2136 / 2136 Output Total 700 / 700 575 / 575 800 / 800 Balance 2969 / 2969 3339 / 3339 1336 / 1336 Microbiology Past 72 Hours 03/26/18 10:04 Blood Culture - Preliminary Blood Culture (Wb) - Right Hand No growth in 48 hours. 03/25/18 16:52 Gram Stain - Final Bone - Toe Wound Culture - Final Staphylococcus aureus Anaerobic Culture - Final No anaerobic bacteria isolated. 03/25/18 16:52 Gram Stain - Final Tissue - Toe Wound Culture - Final Staphylococcus aureus Anaerobic Culture - Final No anaerobic bacteria isolated. Laboratory Tests Past 24 Hrs 03/27/18 06:40 Diff Path Review Reviewed POC Glucose 03/29/18 03/28/18 03/28/18 06:22 21:31 17:00 POC Glucose 146 H 185 H 123 H 03/28/18 03/28/18 13:50 11:02 POC Glucose 137 H 183 H Medical Necessity - Tobacco Use Smoking Status: Never smoker Assessment/Plan All Active Problems Ulcer of right great toe due to diabetes mellitus (Acute) Osteomyelitis (Acute) Vertigo (Acute) Cough (Acute) (dyspnea on exertion) (Acute) Pulmonary emboli (Acute) H/O aortic valve repair (Resolved) H/O thoracic aortic aneurysm repair (Resolved) Nausea (Resolved) PAF (paroxysmal atrial fibrillation) (Resolved) Patient was examined and informed of current findings he is s/p closure of wound. I was able to achieve complete closure of post-op wound via rotational flap. foot appears stable. there is post-op drain in place and I may pull tomorrow pending any further collection. cultures of hallux show mssa and he is on antibiotics by ID and will be for 6 week duration. Patient instructed to remain nwb. any walking to his foot can result in dehiscence. he can apply weight to heel if he is unable to achieve total nwb. plan for possible picc placement on saturday pending blood cultures. blood cultures show no growth at 48 hours. patient likely ok for discharge saturday to rehab.
[2018-03-29 08:10] VITALS: BP 124/67; PULSE 54; RESP 18; TEMP 36.4; O2SAT 96
[2018-03-29 08:12] VITALS: PULSE 54
[2018-03-29] MEDS: metFORMIN HCl 1,000 MG Tablet 1000 MG PO ×2 (08:12→16:43)
[2018-03-29] MEDS: Metoprolol(XL)Succ 200 MG Tablet PO (08:12)
[2018-03-29] MEDS: Aspirin 81 MG TAB.CHEW PO (08:12)
[2018-03-29] MEDS: Glucerna Shake 120 ML LIQUID PO ×4 (08:13→22:07)
[2018-03-29] MEDS: Insulin Lispro 100 UNIT/ML INSULN.PEN SQ ×2 (11:42→22:05)
[2018-03-29 11:50] LABS: Bedside Glucose 195 mg/dL (70-110)
[2018-03-29 14:45] VITALS: BP 123/55; PULSE 60; RESP 18; TEMP 36.6; O2SAT 99
--- NOTE | 2018-03-29 15:34 | PCM.PN.HOSP ---
Patient Problems: Active and Suspected Problems Ulcer of right great toe due to diabetes mellitus (Acute) Osteomyelitis (Acute) Subjective: f/u for diabetic foot infection with OM patient seen and examined has no new complaints No fever or chills Vitals/I&O's: Vital Signs Temp Pulse Resp BP Pulse Ox 97.8 F 60 18 123/55 H 99 03/29/18 14:45 03/29/18 14:45 03/29/18 14:45 03/29/18 14:45 03/29/18 14:45 Oxygen Flow Rate (L/min) 2 Oxygen Delivery Method Room Air Weight: 122.8 kg Body Mass Index (BMI) 35.9 Finger Stick Blood Glucose 165 Intake and Output for Last 24 Hours 03/27/18 03/28/18 03/29/18 23:59 23:59 23:59 Intake Total 3669 / 3669 3914 / 3914 3513 / 3513 Output Total 700 / 700 575 / 575 800 / 800 Balance 2969 / 2969 3339 / 3339 2713 / 2713 General: Alert, Oriented x3, Cooperative, No apparent distress HEENT: Atraumatic Neck: Supple Lungs: - - non labored Extremities: - - dressing over the right foor clean and dry Neurological: Neuro grossly intact Psych/Mental Status: Normal Affect, Appropriate Microbiology Past 72 Hours 03/27/18 11:14 Blood Culture (Wb) - Left Hand Blood Culture - Preliminary No growth in 48 hours. 03/26/18 10:04 Blood Culture (Wb) - Right Hand Blood Culture - Preliminary No growth in 48 hours. 03/25/18 16:52 Bone - Toe Gram Stain - Final 03/25/18 16:52 Bone - Toe Wound Culture - Final Staphylococcus aureus 03/25/18 16:52 Bone - Toe Anaerobic Culture - Final No anaerobic bacteria isolated. 03/25/18 16:52 Tissue - Toe Gram Stain - Final 03/25/18 16:52 Tissue - Toe Wound Culture - Final Staphylococcus aureus 03/25/18 16:52 Tissue - Toe Anaerobic Culture - Final No anaerobic bacteria isolated. Laboratory Results 03/28/18 17:00: POC Glucose 123 H 03/28/18 21:31: POC Glucose 185 H 03/29/18 06:22: POC Glucose 146 H 03/29/18 11:41: POC Glucose 195 H Current Medications Acetaminophen (Tylenol) 650 mg PO Q6H PRN PRN PRN Reason: Mild Pain (scale 0-3)/T>100.7 Last Admin: 03/28/18 18:36 Dose: 650 mg Aspirin (Aspirin, Baby) 81 mg PO DAILY@0800 [facility] Last Admin: 03/29/18 08:12 Dose: 81 mg Atorvastatin Calcium (Lipitor) 40 mg PO QHS [facility] Last Admin: 03/28/18 21:43 Dose: 40 mg Dextrose (D50w Syringe) 0 gm IV X1 PRN; Protocol PRN Reason: Hypoglycemia Glucagon () 1 mg IM .X1 PRN PRN Reason: Hypoglycemia Piperacillin Sod/Tazobactam Sod (Zosyn) 3.375 gm in 50 mls @ 12.5 mls/hr IV Q8 [facility] Last Admin: 03/29/18 13:30 Dose: 12.5 mls/hr Sodium Chloride () 250 mls @ 15 mls/hr IV .[id number] PRN PRN Reason: SALINE FLUSH Last Admin: 03/27/18 14:24 Dose: 15 mls/hr Potassium Chloride/Sodium Chloride () 1,000 mls @ 125 mls/hr IV .Q8H [facility] Last Admin: 03/29/18 09:20 Dose: 125 mls/hr Insulin Glargine (Lantus (Bkc)) 12 units SC DAILY [facility] Last Admin: 03/29/18 08:13 Dose: 12 u Insulin Human Lispro (Humalog Kwikpen (Bkc)) 0 unit SQ ACHS [facility] PRN Reason: Protocol Last Admin: 03/29/18 11:42 Dose: 2 u Magnesium Hydroxide (Milk Of Magnesia) 30 ml PO DAILY PRN PRN PRN Reason: Constipation Metformin HCl (Glucophage) 1,000 mg PO BIDCM [facility] Last Admin: 03/29/18 08:12 Dose: 1,000 mg Metoprolol Succinate (Toprol Xl (Beta Red)) 200 mg PO DAILY [facility] Last Admin: 03/29/18 08:12 Dose: 200 mg Nutritional Formula (Lactose Free) (Glucerna Shake) 120 ml PO 4X/DAY [facility] Last Admin: 03/29/18 13:30 Dose: 120 ml Oxycodone HCl (Oxyir) 5 mg PO Q6H PRN PRN PRN Reason: SEVERE PAIN (6-10/10) Sodium Chloride () 5 - 30 ml IV UD PRN PRN Reason: SALINE FLUSH Last Admin: 03/28/18 21:43 Dose: 10 ml Medical Necessity - Tobacco Use Smoking Status: Never smoker Assessment/Plan All Active Problems Ulcer of right great toe due to diabetes mellitus (Acute) Osteomyelitis (Acute) Vertigo (Acute) Cough (Acute) (dyspnea on exertion) (Acute) Pulmonary emboli (Acute) H/O aortic valve repair (Resolved) H/O thoracic aortic aneurysm repair (Resolved) Nausea (Resolved) PAF (paroxysmal atrial fibrillation) (Resolved) 1. Severe Sepsis with staph aureus bacteremia 2/2 most likely osteomyelitis from a diabetic foot wound as Staph aureus also cultured from wound. On appropriate IV antibiotics 2. 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 Appreciate input from Podiatry surgery Planned for PICC line on Saturday and then 6 weeks total of IV abx. 3. DM2 - OHA from home had been held - Started SSI and will add basal insulin as well. Resumed metformin and blood glucose levels are better Increased statin for primary CVD prevention 4. HTN. Well controlled on current regimen and will continue to monitor 5. ANTHONY. creatinine solis to 1.7 from baseline of 0.9. Beginning to improve with IVFs and clearance of infection. Continue to hold diuretics and ARBs/ACEI 6. Hypokalemia. Repleted. Code Visit Inpatient E&M: 24334 Subs Hosp L2
--- NOTE | 2018-03-29 15:39 | PN_ITS ---
Patient Problems: Active and Suspected Problems Ulcer of right great toe due to diabetes mellitus (Acute) Osteomyelitis (Acute) Subjective: f/u for diabetic foot infection with OM patient seen and examined has no new complaints No fever or chills Vitals/I&O's: Vital Signs Temp Pulse Resp BP Pulse Ox 97.8 F 60 18 123/55 H 99 03/29/18 14:45 03/29/18 14:45 03/29/18 14:45 03/29/18 14:45 03/29/18 14:45 Oxygen Flow Rate (L/min) 2 Oxygen Delivery Method Room Air Weight: 122.8 kg Body Mass Index (BMI) 35.9 Finger Stick Blood Glucose 165 Intake and Output for Last 24 Hours 03/27/18 03/28/18 03/29/18 23:59 23:59 23:59 Intake Total 3669 / 3669 3914 / 3914 3513 / 3513 Output Total 700 / 700 575 / 575 800 / 800 Balance 2969 / 2969 3339 / 3339 2713 / 2713 General: Alert, Oriented x3, Cooperative, No apparent distress HEENT: Atraumatic Neck: Supple Lungs: - - non labored Extremities: - - dressing over the right foor clean and dry Neurological: Neuro grossly intact Psych/Mental Status: Normal Affect, Appropriate Microbiology Past 72 Hours 03/27/18 11:14 Blood Culture (Wb) - Left Hand Blood Culture - Preliminary No growth in 48 hours. 03/26/18 10:04 Blood Culture (Wb) - Right Hand Blood Culture - Preliminary No growth in 48 hours. 03/25/18 16:52 Bone - Toe Gram Stain - Final 03/25/18 16:52 Bone - Toe Wound Culture - Final Staphylococcus aureus 03/25/18 16:52 Bone - Toe Anaerobic Culture - Final No anaerobic bacteria isolated. 03/25/18 16:52 Tissue - Toe Gram Stain - Final 03/25/18 16:52 Tissue - Toe Wound Culture - Final Staphylococcus aureus 03/25/18 16:52 Tissue - Toe Anaerobic Culture - Final No anaerobic bacteria isolated. Laboratory Results 03/28/18 17:00: POC Glucose 123 H 03/28/18 21:31: POC Glucose 185 H 03/29/18 06:22: POC Glucose 146 H 03/29/18 11:41: POC Glucose 195 H Current Medications Acetaminophen (Tylenol) 650 mg PO Q6H PRN PRN PRN Reason: Mild Pain (scale 0-3)/T>100.7 Last Admin: 03/28/18 18:36 Dose: 650 mg Aspirin (Aspirin, Baby) 81 mg PO DAILY@0800 [facility] Last Admin: 03/29/18 08:12 Dose: 81 mg Atorvastatin Calcium (Lipitor) 40 mg PO QHS [facility] Last Admin: 03/28/18 21:43 Dose: 40 mg Dextrose (D50w Syringe) 0 gm IV X1 PRN; Protocol PRN Reason: Hypoglycemia Glucagon () 1 mg IM .X1 PRN PRN Reason: Hypoglycemia Piperacillin Sod/Tazobactam Sod (Zosyn) 3.375 gm in 50 mls @ 12.5 mls/hr IV Q8 [facility] Last Admin: 03/29/18 13:30 Dose: 12.5 mls/hr Sodium Chloride () 250 mls @ 15 mls/hr IV .[id number] PRN PRN Reason: SALINE FLUSH Last Admin: 03/27/18 14:24 Dose: 15 mls/hr Potassium Chloride/Sodium Chloride () 1,000 mls @ 125 mls/hr IV .Q8H [facility] Last Admin: 03/29/18 09:20 Dose: 125 mls/hr Insulin Glargine (Lantus (Bkc)) 12 units SC DAILY [facility] Last Admin: 03/29/18 08:13 Dose: 12 u Insulin Human Lispro (Humalog Kwikpen (Bkc)) 0 unit SQ ACHS [facility] PRN Reason: Protocol Last Admin: 03/29/18 11:42 Dose: 2 u Magnesium Hydroxide (Milk Of Magnesia) 30 ml PO DAILY PRN PRN PRN Reason: Constipation Metformin HCl (Glucophage) 1,000 mg PO BIDCM [facility] Last Admin: 03/29/18 08:12 Dose: 1,000 mg Metoprolol Succinate (Toprol Xl (Beta Red)) 200 mg PO DAILY [facility] Last Admin: 03/29/18 08:12 Dose: 200 mg Nutritional Formula (Lactose Free) (Glucerna Shake) 120 ml PO 4X/DAY [facility] Last Admin: 03/29/18 13:30 Dose: 120 ml Oxycodone HCl (Oxyir) 5 mg PO Q6H PRN PRN PRN Reason: SEVERE PAIN (6-10/10) Sodium Chloride () 5 - 30 ml IV UD PRN PRN Reason: SALINE FLUSH Last Admin: 03/28/18 21:43 Dose: 10 ml Medical Necessity - Tobacco Use Smoking Status: Never smoker Assessment/Plan All Active Problems Ulcer of right great toe due to diabetes mellitus (Acute) Osteomyelitis (Acute) Vertigo (Acute) Cough (Acute) (dyspnea on exertion) (Acute) Pulmonary emboli (Acute) H/O aortic valve repair (Resolved) H/O thoracic aortic aneurysm repair (Resolved) Nausea (Resolved) PAF (paroxysmal atrial fibrillation) (Resolved) 1. Severe Sepsis with staph aureus bacteremia 2/2 most likely osteomyelitis from a diabetic foot wound as Staph aureus also cultured from wound. On appropriate IV antibiotics 2. 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 Appreciate input from Podiatry surgery Planned for PICC line on Saturday and then 6 weeks total of IV abx. 3. DM2 - OHA from home had been held - Started SSI and will add basal insulin as well. Resumed metformin and blood glucose levels are better Increased statin for primary CVD prevention 4. HTN. Well controlled on current regimen and will continue to monitor 5. ANTHONY. creatinine solis to 1.7 from baseline of 0.9. Beginning to improve with IVFs and clearance of infection. Continue to hold diuretics and ARBs/ACEI 6. Hypokalemia. Repleted. Code Visit Inpatient E&M: [id number] Subs Hosp L2
[2018-03-29 16:45] LABS: Bedside Glucose 147 mg/dL (70-110)
[2018-03-29] MEDS: 0.9% NaCl IVPB Med Flush (250 mL) 15 ML IV (18:15)
[2018-03-29 20:02] VITALS: BP 122/59; PULSE 65; RESP 16; TEMP 36.2; O2SAT 97
[2018-03-29] MEDS: Atorvastatin Calcium 40 MG Tablet PO (22:05)
[2018-03-29 22:11] LABS: Bedside Glucose 165 mg/dL (70-110)
[2018-03-30 02:15] VITALS: BP 135/66; PULSE 66; RESP 16; TEMP 36.7; O2SAT 98
[2018-03-30] MEDS: Piperacil/Tazobactam 3.375 GM/50 ML ML IV ×3 (05:08→20:59)
[2018-03-30 06:29] LABS: Absolute Lymphocyte Count 2.02 X10^3/ul (0.83-4.51); Absolute Neutrophil Count 6.5 X10^3/uL (2.0-7.7); Basophil# 0.02 X10^3/uL; Basophil% 0.2 % (0-1); Eosinophils% 4.1 % (0-5); Hematocrit 29.3 % (40-54); Hemoglobin 9.1 g/dl (13.0-16.5); Lymphocyte # 2.02 X10^3/ul (4.0); Lymphocyte % 20.7 % (19-41); Mean Corp Hgb Conc 31.1 g/gl (32-36); Mean Corpuscular Volume 86.9 fL (80-94); Mean Platelet Vol. 8.7 fl (6.2-12.0); Monocyte# 0.66 X10^3/uL; Monocyte% 6.7 % (0-10); Neutrophil # 6.46 X10^3/uL (2.7-7.7); Neutrophil % 66.1 % (47-70); Platelet Count 328 K/mm3 (150-450); RBC Distribution Width CV 14.4 % (11.6-14.6); RBC Distribution Width SD 45.4 fl (35.1-43.9); Red Blood Count 3.37 M/mm3 (4.6-6.2); White Blood Count 9.8 K/mm3 (4.4-11.0)
[2018-03-30 06:30] LABS: POSITIVE COUNT YES; POSITIVE DIFFERENTIAL NO; POSITIVE MORPHOLOGY YES
[2018-03-30 06:31] LABS: ALB/GLOB Ratio 0.6 RATIO (0.9-2.4); AST(SGOT) 25 U/L (15-37); Alanine Aminotransfer ALT/SGPT 43 U/L (16-61); Albumin, Serum 2.2 g/dL (3.2-5.0); Alkaline Phosphatase 65 U/L (45-117); Anion Gap 9 (5-15); BUN 17 mg/dL (7-18); BUN/Creat Ratio 12.8 RATIO (10-20); Calcium,Total 8.1 mg/dL (8.5-10.1); Chloride 111 mmol/L (98-107); Creatinine, Serum 1.33 mg/dL (0.70-1.30); EST Glomerular Filtration Rate 56 mL/min (>60); Est Glom Filt Rate - Afr Amer 68 mL/min (>60); Estimated Creatinine Clearance 56.73 ml/min; Globulin 3.7 g/dL (2.2-4.2); Glucose 153 mg/dL (74-106); Potassium 4.4 mmol/L (3.5-5.1); Protein, Total 5.9 g/dL (6.4-8.2); Sodium Level 145 mmol/L (136-145)
[2018-03-30 06:35] LABS: Bedside Glucose 147 mg/dL (70-110)
[2018-03-30 08:40] VITALS: BP 140/70; PULSE 67; RESP 18; TEMP 36.6; O2SAT 98
[2018-03-30 08:41] VITALS: PULSE 67
[2018-03-30] MEDS: metFORMIN HCl 1,000 MG Tablet 1000 MG PO ×2 (08:41→16:19)
[2018-03-30] MEDS: Aspirin 81 MG TAB.CHEW PO (08:41)
[2018-03-30] MEDS: Metoprolol(XL)Succ 200 MG Tablet PO (08:41)
[2018-03-30] MEDS: Glucerna Shake 120 ML LIQUID PO ×4 (08:43→20:59)
--- NOTE | 2018-03-30 09:08 | PCM.PN.SRG ---
Patient Problems: Active and Suspected Problems Ulcer of right great toe due to diabetes mellitus (Acute) Osteomyelitis (Acute) Subjective: Patient was seen at bedside this morning. No acute distress. patient denies n/v/f/c. patient has no complaints of pain. Objective: patient is alert and orientated x 3. he does not appear in any distress. Right foot with dressing that is clean, dry and intact. there is some evidence of mild strike thru. Dressing was removed. surgical incision is approximated. there is mixture of blood and serous drainage collected in drain. no active bleeding is noted. there is very small amount of new fibrotic slough along the medial aspect of central incision. I removed two suture. there is no purulence, bleeding or signs of infection. no redness to right foot. no warmth. no calf pain present. - Physical Exam Vital Signs Temp Pulse Resp BP Pulse Ox 97.8 F 67 18 140/70 H 98 03/30/18 08:40 03/30/18 08:41 03/30/18 08:40 03/30/18 08:40 03/30/18 08:40 Oxygen Flow Rate (L/min) 2 Oxygen Delivery Method Room Air Weight: 122.8 kg Body Mass Index (BMI) 35.9 Finger Stick Blood Glucose 165 Intake and Output for Last 24 Hours 03/28/18 03/29/18 03/30/18 23:59 23:59 23:59 Intake Total 3914 / 3914 4717 / 4717 2069 / 2069 Output Total 575 / 575 900 / 900 575 / 575 Balance 3339 / 3339 3817 / 3817 1495 / 1495 Microbiology Past 72 Hours 03/27/18 11:14 Blood Culture - Preliminary Blood Culture (Wb) - Left Hand No growth in 48 hours. 03/26/18 10:04 Blood Culture - Preliminary Blood Culture (Wb) - Right Hand No growth in 48 hours. 03/25/18 16:52 Gram Stain - Final Bone - Toe Wound Culture - Final Staphylococcus aureus Anaerobic Culture - Final No anaerobic bacteria isolated. 03/25/18 16:52 Gram Stain - Final Tissue - Toe Wound Culture - Final Staphylococcus aureus Anaerobic Culture - Final No anaerobic bacteria isolated. Laboratory Tests Past 24 Hrs 03/30/18 03/30/18 05:55 05:55 WBC 9.8 RBC 3.37 L Hgb 9.1 L Hct 29.3 L MCV 86.9 MCH 27.0 MCHC 31.1 L RDW 14.4 RDW Differential 45.4 H Plt Count 328 MPV 8.7 Immature Gran % (Auto) 2.200 H Neut % (Auto) 66.1 Lymph % (Auto) 20.7 [place] % (Auto) 6.7 Eos % (Auto) 4.1 Baso % (Auto) 0.2 Absolute Neuts (auto) 6.5 Absolute Lymphs (auto) 2.02 Total Counted Not Reportable Diff Path Review May foll Sodium 145 Potassium 4.4 Chloride 111 H Carbon Dioxide 25.0 Anion Gap 9 BUN 17 Creatinine 1.33 H Estim Creat Clear Calc 56.73 Est GFR (MDRD) Af Amer 68 Est GFR (MDRD) Non-Af 56 L BUN/Creatinine Ratio 12.8 Glucose 153 H Calcium 8.1 L Total Bilirubin 0.30 AST 25 ALT 43 Alkaline Phosphatase 65 Total Protein 5.9 L Albumin 2.2 L Globulin 3.7 Albumin/Globulin Ratio 0.6 L POC Glucose 03/30/18 03/29/18 03/29/18 06:24 22:01 16:41 POC Glucose 147 H 165 H 147 H 03/29/18 11:41 POC Glucose 195 H Medical Necessity - Tobacco Use Smoking Status: Never smoker Assessment/Plan All Active Problems Ulcer of right great toe due to diabetes mellitus (Acute) Osteomyelitis (Acute) Vertigo (Acute) Cough (Acute) (dyspnea on exertion) (Acute) Pulmonary emboli (Acute) H/O aortic valve repair (Resolved) H/O thoracic aortic aneurysm repair (Resolved) Nausea (Resolved) PAF (paroxysmal atrial fibrillation) (Resolved) Patient was examined and informed of current findings he is two days post-op from delayed closure. today on exam, there appears to be mild slough along medial incision that was not present yesterday. today, I removed two sutures for further evaluation. no deep abscess or hematoma or any drainage noted. I had originally planned for possible discharge tomorrow but given new finding of tissue, I am concerned about tissue viability of remaining foot. Patient does not wish to have any further bone resected and thus far, the metatarsal does not have any bacterial growth. I have informed patient of my concerns. I am concerned that the viability of this tissue due to past infection may require wound vac to achieve closure as opposed to suture. I fear that the viability of this tissue may ultimately lead to dehiscence. I applied betadine to wound. I will keep drain intact until tomorrow. I will recheck foot tomorrow and if the tissue quality appears more fibrotic, I may remove suture in favor of wound vac. I will hold discharge for tomorrow and make further recommendations pending evaluation tomorrow.
[2018-03-30] MEDS: Insulin Lispro 100 UNIT/ML INSULN.PEN SQ ×3 (11:48→21:00)
[2018-03-30 12:05] LABS: Bedside Glucose 196 mg/dL (70-110)
[2018-03-30 14:35] VITALS: BP 152/68; PULSE 58; RESP 18; TEMP 36.7; O2SAT 97
--- NOTE | 2018-03-30 14:58 | PCM.PN.HOSP ---
Patient Problems: Active and Suspected Problems Ulcer of right great toe due to diabetes mellitus (Acute) Osteomyelitis (Acute) Subjective: f/u for diabetic foot infection and sepsis Vitals/I&O's: Vital Signs Temp Pulse Resp BP Pulse Ox 98.1 F 58 L 18 152/68 H 97 03/30/18 14:35 03/30/18 14:35 03/30/18 14:35 03/30/18 14:35 03/30/18 14:35 Oxygen Flow Rate (L/min) 2 Oxygen Delivery Method Room Air Weight: 122.8 kg Body Mass Index (BMI) 35.9 Finger Stick Blood Glucose 165 Intake and Output for Last 24 Hours 03/28/18 03/29/18 03/30/18 23:59 23:59 23:59 Intake Total 3914 / 3914 4717 / 4717 2794 / 2794 Output Total 575 / 575 900 / 900 775 / 775 Balance 3339 / 3339 3817 / 3817 2018 General: Alert, Oriented x3, Cooperative HEENT: Atraumatic Oral: Moist Mucosa Neck: Supple Lungs: Clear to auscultation Abdomen: - - MWR Extremities: - - dressing over right foot Neurological: Cranial nerves II-XII grossly intact, Neuro grossly intact Psych/Mental Status: Appropriate Microbiology Past 72 Hours 03/27/18 11:14 Blood Culture (Wb) - Left Hand Blood Culture - Preliminary No growth in 48 hours. 03/26/18 10:04 Blood Culture (Wb) - Right Hand Blood Culture - Preliminary No growth in 48 hours. 03/25/18 16:52 Bone - Toe Gram Stain - Final 03/25/18 16:52 Bone - Toe Wound Culture - Final Staphylococcus aureus 03/25/18 16:52 Bone - Toe Anaerobic Culture - Final No anaerobic bacteria isolated. 03/25/18 16:52 Tissue - Toe Gram Stain - Final 03/25/18 16:52 Tissue - Toe Wound Culture - Final Staphylococcus aureus 03/25/18 16:52 Tissue - Toe Anaerobic Culture - Final No anaerobic bacteria isolated. Laboratory Results 03/29/18 16:41: POC Glucose 147 H 03/29/18 22:01: POC Glucose 165 H 03/30/18 05:55: WBC 9.8, RBC 3.37 L, Hgb 9.1 L, Hct 29.3 L, MCV 86.9, MCH 27.0, MCHC 31.1 L, RDW 14.4, RDW Differential 45.4 H, Plt Count 328, MPV 8.7, Immature Gran % (Auto) 2.200 H, Neut % (Auto) 66.1, Lymph % (Auto) 20.7, [place] % (Auto) 6.7, Eos % (Auto) 4.1, Baso % (Auto) 0.2, Absolute Neuts (auto) 6.5, Absolute Lymphs (auto) 2.02, Total Counted Not Reportable, Diff Path Review November03/30/18 05:55: Sodium 145, Potassium 4.4, Chloride 111 H, Carbon Dioxide 25.0, Anion Gap 9, BUN 17, Creatinine 1.33 H, Estim Creat Clear Calc 56.73, Est GFR (MDRD) Af Amer 68, Est GFR (MDRD) Non-Af 56 L, BUN/Creatinine Ratio 12.8, Glucose 153 H, Calcium 8.1 L, Total Bilirubin 0.30, AST 25, ALT 43, Alkaline Phosphatase 65, Total Protein 5.9 L, Albumin 2.2 L, Globulin 3.7, Albumin/Globulin Ratio 0.6 L 03/30/18 06:24: POC Glucose 147 H 03/30/18 11:46: POC Glucose 196 H Current Medications Acetaminophen (Tylenol) 650 mg PO Q6H PRN PRN PRN Reason: Mild Pain (scale 0-3)/T>100.7 Last Admin: 03/28/18 18:36 Dose: 650 mg Aspirin (Aspirin, Baby) 81 mg PO DAILY@0800 [facility] Last Admin: 03/30/18 08:41 Dose: 81 mg Atorvastatin Calcium (Lipitor) 40 mg PO QHS [facility] Last Admin: 03/29/18 22:05 Dose: 40 mg Dextrose (D50w Syringe) 0 gm IV X1 PRN; Protocol PRN Reason: Hypoglycemia Glucagon () 1 mg IM .X1 PRN PRN Reason: Hypoglycemia Piperacillin Sod/Tazobactam Sod (Zosyn) 3.375 gm in 50 mls @ 12.5 mls/hr IV Q8 [facility] Last Admin: 03/30/18 14:34 Dose: 12.5 mls/hr Sodium Chloride () 250 mls @ 15 mls/hr IV .[id number] PRN PRN Reason: SALINE FLUSH Last Admin: 03/29/18 18:15 Dose: 15 mls/hr Insulin Glargine (Lantus (Bkc)) 14 units SC DAILY [facility] Last Admin: 03/30/18 08:42 Dose: 14 units Insulin Human Lispro (Humalog Kwikpen (Bkc)) 0 unit SQ ACHS [facility] PRN Reason: Protocol Last Admin: 03/30/18 11:48 Dose: 2 u Magnesium Hydroxide (Milk Of Magnesia) 30 ml PO DAILY PRN PRN PRN Reason: Constipation Metformin HCl (Glucophage) 1,000 mg PO BIDCM [facility] Last Admin: 03/30/18 08:41 Dose: 1,000 mg Metoprolol Succinate (Toprol Xl (Beta Red)) 200 mg PO DAILY [facility] Last Admin: 03/30/18 08:41 Dose: 200 mg Nutritional Formula (Lactose Free) (Glucerna Shake) 120 ml PO 4X/DAY [facility] Last Admin: 03/30/18 14:34 Dose: 120 ml Oxycodone HCl (Oxyir) 5 mg PO Q6H PRN PRN PRN Reason: SEVERE PAIN (6-10/10) Sodium Chloride () 5 - 30 ml IV UD PRN PRN Reason: SALINE FLUSH Last Admin: 03/28/18 21:43 Dose: 10 ml Medical Necessity - Tobacco Use Smoking Status: Never smoker Assessment/Plan All Active Problems Ulcer of right great toe due to diabetes mellitus (Acute) Osteomyelitis (Acute) Vertigo (Acute) Cough (Acute) (dyspnea on exertion) (Acute) Pulmonary emboli (Acute) H/O aortic valve repair (Resolved) H/O thoracic aortic aneurysm repair (Resolved) Nausea (Resolved) PAF (paroxysmal atrial fibrillation) (Resolved) 1. Severe Sepsis with staph aureus bacteremia 2/2 most likely osteomyelitis from a diabetic foot wound as Staph aureus also cultured from wound. On appropriate IV antibiotics 2. 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 Application of wound vac being considered ID following and input appreciated. Appreciate input from Podiatry surgery Planned for PICC line on Saturday and then 6 weeks total of IV abx. 3. DM2 - OHA from home had been held - Started SSI and will add basal insulin as well. Resumed metformin and blood glucose levels are better Increased statin for primary CVD prevention 4. HTN. Well controlled on current regimen and will continue to monitor 5. ANTHONY. creatinine solis to 1.7 from baseline of 0.9. Beginning to improve with IVFs and clearance of infection. Continue to hold diuretics and ARBs/ACEI 6. Hypokalemia. Repleted. Code Visit Inpatient E&M: 42871 Subs Hosp L2
--- NOTE | 2018-03-30 15:02 | PN_ITS ---
Patient Problems: Active and Suspected Problems Ulcer of right great toe due to diabetes mellitus (Acute) Osteomyelitis (Acute) Subjective: f/u for diabetic foot infection and sepsis Vitals/I&O's: Vital Signs Temp Pulse Resp BP Pulse Ox 98.1 F 58 L 18 152/68 H 97 03/30/18 14:35 03/30/18 14:35 03/30/18 14:35 03/30/18 14:35 03/30/18 14:35 Oxygen Flow Rate (L/min) 2 Oxygen Delivery Method Room Air Weight: 122.8 kg Body Mass Index (BMI) 35.9 Finger Stick Blood Glucose 165 Intake and Output for Last 24 Hours 03/28/18 03/29/18 03/30/18 23:59 23:59 23:59 Intake Total 3914 / 3914 4717 / 4717 2794 / 2794 Output Total 575 / 575 900 / 900 775 / 775 Balance 3339 / 3339 3817 / 3817 2018 General: Alert, Oriented x3, Cooperative HEENT: Atraumatic Oral: Moist Mucosa Neck: Supple Lungs: Clear to auscultation Abdomen: - - MWR Extremities: - - dressing over right foot Neurological: Cranial nerves II-XII grossly intact, Neuro grossly intact Psych/Mental Status: Appropriate Microbiology Past 72 Hours 03/27/18 11:14 Blood Culture (Wb) - Left Hand Blood Culture - Preliminary No growth in 48 hours. 03/26/18 10:04 Blood Culture (Wb) - Right Hand Blood Culture - Preliminary No growth in 48 hours. 03/25/18 16:52 Bone - Toe Gram Stain - Final 03/25/18 16:52 Bone - Toe Wound Culture - Final Staphylococcus aureus 03/25/18 16:52 Bone - Toe Anaerobic Culture - Final No anaerobic bacteria isolated. 03/25/18 16:52 Tissue - Toe Gram Stain - Final 03/25/18 16:52 Tissue - Toe Wound Culture - Final Staphylococcus aureus 03/25/18 16:52 Tissue - Toe Anaerobic Culture - Final No anaerobic bacteria isolated. Laboratory Results 03/29/18 16:41: POC Glucose 147 H 03/29/18 22:01: POC Glucose 165 H 03/30/18 05:55: WBC 9.8, RBC 3.37 L, Hgb 9.1 L, Hct 29.3 L, MCV 86.9, MCH 27.0, MCHC 31.1 L, RDW 14.4, RDW Differential 45.4 H, Plt Count 328, MPV 8.7, Immature Gran % (Auto) 2.200 H, Neut % (Auto) 66.1, Lymph % (Auto) 20.7, [place] % (Auto) 6.7, Eos % (Auto) 4.1, Baso % (Auto) 0.2, Absolute Neuts (auto) 6.5, Absolute Lymphs (auto) 2.02, Total Counted Not Reportable, Diff Path Review November03/30/18 05:55: Sodium 145, Potassium 4.4, Chloride 111 H, Carbon Dioxide 25.0, Anion Gap 9, BUN 17, Creatinine 1.33 H, Estim Creat Clear Calc 56.73, Est GFR ( MDRD) Af Amer 68, Est GFR (MDRD) Non-Af 56 L, BUN/Creatinine Ratio 12.8, Glucose 153 H, Calcium 8.1 L, Total Bilirubin 0.30, AST 25, ALT 43, Alkaline Phosphatase 65, Total Protein 5.9 L, Albumin 2.2 L, Globulin 3.7, Albumin/ Globulin Ratio 0.6 L 03/30/18 06:24: POC Glucose 147 H 03/30/18 11:46: POC Glucose 196 H Current Medications Acetaminophen (Tylenol) 650 mg PO Q6H PRN PRN PRN Reason: Mild Pain (scale 0-3)/T>100.7 Last Admin: 03/28/18 18:36 Dose: 650 mg Aspirin (Aspirin, Baby) 81 mg PO DAILY@0800 [facility] Last Admin: 03/30/18 08:41 Dose: 81 mg Atorvastatin Calcium (Lipitor) 40 mg PO QHS [facility] Last Admin: 03/29/18 22:05 Dose: 40 mg Dextrose (D50w Syringe) 0 gm IV X1 PRN; Protocol PRN Reason: Hypoglycemia Glucagon () 1 mg IM .X1 PRN PRN Reason: Hypoglycemia Piperacillin Sod/Tazobactam Sod (Zosyn) 3.375 gm in 50 mls @ 12.5 mls/hr IV Q8 [facility] Last Admin: 03/30/18 14:34 Dose: 12.5 mls/hr Sodium Chloride () 250 mls @ 15 mls/hr IV .[id number] PRN PRN Reason: SALINE FLUSH Last Admin: 03/29/18 18:15 Dose: 15 mls/hr Insulin Glargine (Lantus (Bkc)) 14 units SC DAILY [facility] Last Admin: 03/30/18 08:42 Dose: 14 units Insulin Human Lispro (Humalog Kwikpen (Bkc)) 0 unit SQ ACHS [facility] PRN Reason: Protocol Last Admin: 03/30/18 11:48 Dose: 2 u Magnesium Hydroxide (Milk Of Magnesia) 30 ml PO DAILY PRN PRN PRN Reason: Constipation Metformin HCl (Glucophage) 1,000 mg PO BIDCM [facility] Last Admin: 03/30/18 08:41 Dose: 1,000 mg Metoprolol Succinate (Toprol Xl (Beta Red)) 200 mg PO DAILY [facility] Last Admin: 03/30/18 08:41 Dose: 200 mg Nutritional Formula (Lactose Free) (Glucerna Shake) 120 ml PO 4X/DAY [facility] Last Admin: 03/30/18 14:34 Dose: 120 ml Oxycodone HCl (Oxyir) 5 mg PO Q6H PRN PRN PRN Reason: SEVERE PAIN (6-10/10) Sodium Chloride () 5 - 30 ml IV UD PRN PRN Reason: SALINE FLUSH Last Admin: 03/28/18 21:43 Dose: 10 ml Medical Necessity - Tobacco Use Smoking Status: Never smoker Assessment/Plan All Active Problems Ulcer of right great toe due to diabetes mellitus (Acute) Osteomyelitis (Acute) Vertigo (Acute) Cough (Acute) (dyspnea on exertion) (Acute) Pulmonary emboli (Acute) H/O aortic valve repair (Resolved) H/O thoracic aortic aneurysm repair (Resolved) Nausea (Resolved) PAF (paroxysmal atrial fibrillation) (Resolved) 1. Severe Sepsis with staph aureus bacteremia 2/2 most likely osteomyelitis from a diabetic foot wound as Staph aureus also cultured from wound. On appropriate IV antibiotics 2. 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 Application of wound vac being considered ID following and input appreciated. Appreciate input from Podiatry surgery Planned for PICC line on Saturday and then 6 weeks total of IV abx. 3. DM2 - OHA from home had been held - Started SSI and will add basal insulin as well. Resumed metformin and blood glucose levels are better Increased statin for primary CVD prevention 4. HTN. Well controlled on current regimen and will continue to monitor 5. ANTHONY. creatinine [place] to 1.7 from baseline of 0.9. Beginning to improve with IVFs and clearance of infection. Continue to hold diuretics and ARBs/ACEI 6. Hypokalemia. Repleted. Code Visit Inpatient E&M: [id number] Subs Hosp L2
[2018-03-30 16:36] LABS: Bedside Glucose 164 mg/dL (70-110)
[2018-03-30 19:37] VITALS: BP 149/69; PULSE 62; RESP 16; TEMP 36.7; O2SAT 97
[2018-03-30] MEDS: 0.9% NaCl IVPB Med Flush (250 mL) 15 ML IV (20:59)
[2018-03-30] MEDS: Sodium Chloride 0.65% 1 SPRAY SPRAY.BTL 2 SPRAY NASAL (21:00)
[2018-03-30] MEDS: Atorvastatin Calcium 40 MG Tablet PO (21:00)
[2018-03-30 21:10] LABS: Bedside Glucose 165 mg/dL (70-110)
[2018-03-30] MEDS: MELATONIN 10 MG TABLET PO (23:36)
[2018-03-31 01:39] VITALS: BP 135/65; PULSE 70; RESP 16; TEMP 36.8; O2SAT 96
[2018-03-31] MEDS: Piperacil/Tazobactam 3.375 GM/50 ML ML IV (04:58)
--- NOTE | 2018-03-31 05:43 | PCM.PN.SRG ---
Patient Problems: Active and Suspected Problems Ulcer of right great toe due to diabetes mellitus (Acute) Osteomyelitis (Acute) Subjective: Patient seen at bedside this morning with no complaints of pain, n/v/f/c. patient anticipating discharge Objective: Patient is alert and orientated x 3. no acute distress surgical incision is approximated with no tension or necrosis. the serous drainage that was present yesterday is all resolved. skin incision appears viable without any drainage, redness, fluctuance or signs of active bleeding. there is no calf pain present to right lower extremity no decubitus ulcerations present to right heel. - Physical Exam Vital Signs Temp Pulse Resp BP Pulse Ox 98.3 F 70 16 135/65 H 96 03/31/18 01:39 03/31/18 01:39 03/31/18 01:39 03/31/18 01:39 03/31/18 01:39 Oxygen Flow Rate (L/min) 2 Oxygen Delivery Method Room Air Weight: 122.8 kg Body Mass Index (BMI) 35.9 Finger Stick Blood Glucose 165 Intake and Output for Last 24 Hours 03/29/18 03/30/18 03/31/18 23:59 23:59 23:59 Intake Total 4717 / 4717 3331 / 3331 588 / 588 Output Total 900 / 900 775 / 775 750 / 750 Balance 3817 / 3817 2556 / 2556 -162 / -162 Microbiology Past 72 Hours 03/27/18 11:14 Blood Culture - Preliminary Blood Culture (Wb) - Left Hand No growth in 48 hours. 03/26/18 10:04 Blood Culture - Preliminary Blood Culture (Wb) - Right Hand No growth in 48 hours. 03/25/18 16:52 Gram Stain - Final Bone - Toe Wound Culture - Final Staphylococcus aureus Anaerobic Culture - Final No anaerobic bacteria isolated. 03/25/18 16:52 Gram Stain - Final Tissue - Toe Wound Culture - Final Staphylococcus aureus Anaerobic Culture - Final No anaerobic bacteria isolated. Laboratory Tests Past 24 Hrs 03/30/18 03/30/18 05:55 05:55 WBC 9.8 RBC 3.37 L Hgb 9.1 L Hct 29.3 L MCV 86.9 MCH 27.0 MCHC 31.1 L RDW 14.4 RDW Differential 45.4 H Plt Count 328 MPV 8.7 Immature Gran % (Auto) 2.200 H Neut % (Auto) 66.1 Lymph % (Auto) 20.7 [place] % (Auto) 6.7 Eos % (Auto) 4.1 Baso % (Auto) 0.2 Absolute Neuts (auto) 6.5 Absolute Lymphs (auto) 2.02 Total Counted Not Reportable Diff Path Review May foll Sodium 145 Potassium 4.4 Chloride 111 H Carbon Dioxide 25.0 Anion Gap 9 BUN 17 Creatinine 1.33 H Estim Creat Clear Calc 56.73 Est GFR (MDRD) Af Amer 68 Est GFR (MDRD) Non-Af 56 L BUN/Creatinine Ratio 12.8 Glucose 153 H Calcium 8.1 L Total Bilirubin 0.30 AST 25 ALT 43 Alkaline Phosphatase 65 Total Protein 5.9 L Albumin 2.2 L Globulin 3.7 Albumin/Globulin Ratio 0.6 L POC Glucose 03/30/18 03/30/18 03/30/18 20:57 16:18 11:46 POC Glucose 165 H 164 H 196 H 03/30/18 06:24 POC Glucose 147 H Medical Necessity - Tobacco Use Smoking Status: Never smoker Assessment/Plan All Active Problems Ulcer of right great toe due to diabetes mellitus (Acute) Osteomyelitis (Acute) Vertigo (Acute) Cough (Acute) (dyspnea on exertion) (Acute) Pulmonary emboli (Acute) H/O aortic valve repair (Resolved) H/O thoracic aortic aneurysm repair (Resolved) Nausea (Resolved) PAF (paroxysmal atrial fibrillation) (Resolved) Patient was examined and informed of current findings yesterday, the foot demonstrated mild serous drainage within tls drain. today, no fluid collection in drain noted. drain was successfully pulled today without incident. the surgical incision is approximated nicely without any signs of redness, drainage, or infection. I had discussed with patient yesterday about appearance of foot and possible need for wound vac. today, the foot appears stable. I will hold on wound vac at this time in favor of aquacel ag which will provide additional absorptive capability. There is one area of incision that I will leave open to heal secondarily. Patient will continue nwb. He will continue with antibiotics per ID I would like to hold discharge for one further day to evaluate wound tomorrow. I have spoken with nursing staff of my desire to hold on discharge. at this time, patient will require aquacel ag to assist in wound healing at discharge. he will see me weekly patient understands risk of potential wound healing complications. He is not interested in any further bone resection and would opt for wound vac if necessary.
[2018-03-31] MEDS: Insulin Lispro 100 UNIT/ML INSULN.PEN SQ ×3 (06:31→21:23)
[2018-03-31 06:41] LABS: Bedside Glucose 157 mg/dL (70-110)
[2018-03-31] MEDS: metFORMIN HCl 1,000 MG Tablet 1000 MG PO ×2 (08:25→18:23)
[2018-03-31] MEDS: Aspirin 81 MG TAB.CHEW PO (08:25)
[2018-03-31 10:30] VITALS: BP 151/74; PULSE 60
[2018-03-31] MEDS: Glucerna Shake 120 ML LIQUID PO ×3 (10:30→21:24)
[2018-03-31] MEDS: Metoprolol(XL)Succ 200 MG Tablet PO (10:30)
[2018-03-31 10:33] VITALS: BP 151/74; PULSE 60; RESP 16; TEMP 36.6; O2SAT 97
[2018-03-31 12:56] LABS: Bedside Glucose 166 mg/dL (70-110)
--- NOTE | 2018-03-31 13:50 | PCM.PN.ID ---
Patient Problems: Active and Suspected Problems Ulcer of right great toe due to diabetes mellitus (Acute) Osteomyelitis (Acute) Subjective: Feeling fine, no issues with foot, no fever. - Physical Exam General: Alert, Cooperative, No apparent distress Lungs: Clear to auscultation, Normal air movement Cardiovascular: Regular rate, Regular Rhythm Abdomen: Soft, Non Tender, Non-Distended Skin: No rashes, Incision - foot wrapped Vital Signs Temp Pulse Resp BP Pulse Ox 97.9 F 60 16 151/74 H 97 03/31/18 10:33 03/31/18 10:33 03/31/18 10:33 03/31/18 10:33 03/31/18 10:33 Oxygen Flow Rate (L/min) 2 Oxygen Delivery Method Room Air Weight: 122.8 kg Body Mass Index (BMI) 35.9 Finger Stick Blood Glucose 165 Intake and Output for Last 24 Hours 03/29/18 03/30/18 03/31/18 23:59 23:59 23:59 Intake Total 4717 / 4717 3331 / 3331 1148 / 1148 Output Total 900 / 900 775 / 775 900 / 900 Balance 3817 / 3817 2556 / 2556 248 / 248 Microbiology Past 72 Hours 03/27/18 11:14 Blood Culture - Preliminary Blood Culture (Wb) - Left Hand No growth in 48 hours. 03/26/18 10:04 Blood Culture - Preliminary Blood Culture (Wb) - Right Hand No growth in 48 hours. 03/25/18 16:52 Gram Stain - Final Bone - Toe Wound Culture - Final Staphylococcus aureus Anaerobic Culture - Final No anaerobic bacteria isolated. 03/25/18 16:52 Gram Stain - Final Tissue - Toe Wound Culture - Final Staphylococcus aureus Anaerobic Culture - Final No anaerobic bacteria isolated. POC Glucose 03/31/18 03/31/18 03/30/18 12:48 06:29 20:57 POC Glucose 166 H 157 H 165 H 03/30/18 16:18 POC Glucose 164 H Medical Necessity - Tobacco Use Smoking Status: Never smoker Route of nutrition/ use of supplements: [] Nutritional Intake: [] IV Site: [] Rodrigues Catheter: [] - Assessment/Plan Antibiotics: [] Assessment/Plan: [] Active and Suspected Problems Ulcer of right great toe due to diabetes mellitus (Acute) Osteomyelitis (Acute) severe sepsis (fever, leukocytosis, ANTHONY, lactic acidosis) due to MSSA bacteremia from R 1st toe osteo - MRI with ? involvement of 1st phalanx. Now s/p toe amp by Dr. Obregon 03/25. Has soft murmur at LUSB and splinter hemorrhage on thumb, but TTE with no veg. On zosyn. Initial wound cx also with proteus. Plan will be for 6 weeks of iv abx at discharge to cover for likely residual osteo and possible endocarditis with q8h cefazolin, stop date 05/07/18. Weekly bmp, cbc, and esr. Picc ordered. Will follow, d/w pillowcase maker. Rx written for labs and abx.
[2018-03-31 14:23] LABS: Hematocrit 33.3 % (40-54); Hemoglobin 10.2 g/dl (13.0-16.5); Mean Corp Hgb Conc 30.6 g/gl (32-36); Mean Corpuscular Hgb 26.6 pg (27.0-32.0); Mean Corpuscular Volume 86.7 fL (80-94); Mean Platelet Vol. 8.9 fl (6.2-12.0); Platelet Count 413 K/mm3 (150-450); RBC Distribution Width CV 14.6 % (11.6-14.6); RBC Distribution Width SD 45.5 fl (35.1-43.9); Red Blood Count 3.84 M/mm3 (4.6-6.2); White Blood Count 12.2 K/mm3 (4.4-11.0)
[2018-03-31 14:24] LABS: Differential Indicated MANUAL DIFF; POSITIVE COUNT YES; POSITIVE DIFFERENTIAL NO; POSITIVE MORPHOLOGY YES
--- NOTE | 2018-03-31 14:30 | RAD_ITS ---
STUDY: X-RAY - RIGHT FOOT CLINICAL: Male, 72 years old. Diabetic foot ulceration. TECHNIQUE: AP and lateral view(s) of the foot. COMPARISON: Comparison is made with prior examination dated March 26, 2018. FINDINGS: There is a plantar calcaneal spur. Normal visualized subtalar, talonavicular, calcaneocuboid, tarsal and tarsometatarsal articulations. Normal metatarsi. The patient is status post amputation of the great toe. Normal second through fifth metatarsophalangeal joints. Normal interphalangeal joints and phalanges of the lesser toes. Postoperative soft tissue changes are seen. Since prior study, there has been a decrease in the amount of subcutaneous emphysematous changes. 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 Postoperative soft tissue changes. Plantar spur. Electronically Signed: Ravindra Sierra MD at 15:25 EDT Tel [phone], Service support ,
[2018-03-31 14:42] LABS: Eosinophil 1 % (0-5); Lymphocyte 15 % (19-41); Monocyte 7 % (0-10); Neutrophil-Segmented 77 % (47-70); Total Cells Counted 100 (MANUAL DIFF)
[2018-03-31 14:43] LABS: Absolute Neutrophil Count 9.4 X10^3/uL (2.0-7.7); Platelet Estimate ADEQUATE (ADEQ); Red Cell Morphology NORM C+C NORMAL (NORM C&C)
[2018-03-31 14:44] LABS: Pathologist Review Reviewed
[2018-03-31 14:44] LABS: Absolute Lymphocyte Count 1.83 X10^3/ul (0.83-4.51)
[2018-03-31] MEDS: Cefazolin 2 GM in 0.9% Normal Saline 100 ML IV ×2 (15:54→21:24)
--- NOTE | 2018-03-31 17:16 | PCM.PN.HOSP ---
Patient Problems: Active and Suspected Problems Ulcer of right great toe due to diabetes mellitus (Acute) Osteomyelitis (Acute) Subjective: f/u for diabetic foot infection Continue to feel better No new issues, no fever or chills Vitals/I&O's: Vital Signs Temp Pulse Resp BP Pulse Ox 97.9 F 60 16 151/74 H 97 03/31/18 10:33 03/31/18 10:33 03/31/18 10:33 03/31/18 10:33 03/31/18 10:33 Oxygen Flow Rate (L/min) 2 Oxygen Delivery Method Room Air Weight: 122.8 kg Body Mass Index (BMI) 35.9 Finger Stick Blood Glucose 165 Intake and Output for Last 24 Hours 03/29/18 03/30/18 03/31/18 23:59 23:59 23:59 Intake Total 4717 / 4717 3331 / 3331 1148 / 1148 Output Total 900 / 900 775 / 775 900 / 900 Balance 3817 / 3817 2556 / 2556 248 / 248 General: Alert, Oriented x3, Cooperative, No apparent distress HEENT: Atraumatic Oral: Moist Mucosa Neck: Supple, - - non labored Extremities: - - dressing over foot clean and dry Neurological: Cranial nerves II-XII grossly intact Psych/Mental Status: Normal Affect Microbiology Past 72 Hours 03/26/18 10:04 Blood Culture (Wb) - Right Hand Blood Culture - Final No growth in 5 days. 03/27/18 11:14 Blood Culture (Wb) - Left Hand Blood Culture - Preliminary No growth in 48 hours. Laboratory Results 03/30/18 05:55: Diff Path Review Reviewed 03/30/18 20:57: POC Glucose 165 H 03/31/18 06:29: POC Glucose 157 H 03/31/18 12:48: POC Glucose 166 H 03/31/18 14:00: WBC 12.2 H, RBC 3.84 L, Hgb 10.2 L, Hct 33.3 L, MCV 86.7, MCH 26.6 L, MCHC 30.6 L, RDW 14.6, RDW Differential 45.5 H, Plt Count 413, MPV 8.9, Neut % (Auto) Not Reportable, Absolute Neuts (auto) 9.4 H, Absolute Lymphs (auto) 1.83, Total Counted 100, Neutrophils % (Manual) 77 H, Lymphocytes % (Manual) 15 L, Monocytes % (Manual) 7, Eosinophils % (Manual) 1, Diff Path Review May foll, Platelet Estimate ADEQUATE, RBC Morphology NORM C+C Current Medications Acetaminophen (Tylenol) 650 mg PO Q6H PRN PRN PRN Reason: Mild Pain (scale 0-3)/T>100.7 Last Admin: 03/28/18 18:36 Dose: 650 mg Aspirin (Aspirin, Baby) 81 mg PO DAILY@0800 [facility] Last Admin: 03/31/18 08:25 Dose: 81 mg Atorvastatin Calcium (Lipitor) 40 mg PO QHS [facility] Last Admin: 03/30/18 21:00 Dose: 40 mg Dextrose (D50w Syringe) 0 gm IV X1 PRN; Protocol PRN Reason: Hypoglycemia Glucagon () 1 mg IM .X1 PRN PRN Reason: Hypoglycemia Sodium Chloride () 250 mls @ 15 mls/hr IV .[id number] PRN PRN Reason: SALINE FLUSH Last Admin: 03/30/18 20:59 Dose: 15 mls/hr Cefazolin Sodium 2 gm/ Sodium (Chloride) 110 mls @ 150 mls/hr IV Q8 [facility] Last Admin: 03/31/18 15:54 Dose: 150 mls/hr Insulin Glargine (Lantus (Bkc)) 14 units SC DAILY [facility] Last Admin: 03/31/18 10:30 Dose: 14 units Insulin Human Lispro (Humalog Kwikpen (Bkc)) 0 unit SQ ACHS FRED PRN Reason: Protocol Last Admin: 03/31/18 12:49 Dose: 2 u Magnesium Hydroxide (Milk Of Magnesia) 30 ml PO DAILY PRN PRN PRN Reason: Constipation Melatonin (Melatonin) 10 mg PO QHS PRN PRN PRN Reason: INSOMNIA Last Admin: 03/30/18 23:36 Dose: 10 mg Metformin HCl (Glucophage) 1,000 mg PO BIDCM [facility] Last Admin: 03/31/18 08:25 Dose: 1,000 mg Metoprolol Succinate (Toprol Xl (Beta Red)) 200 mg PO DAILY [facility] Last Admin: 03/31/18 10:30 Dose: 200 mg Nutritional Formula (Lactose Free) (Glucerna Shake) 120 ml PO 4X/DAY [facility] Last Admin: 09/17/18 16:01 Dose: Not Given Oxycodone HCl (Oxyir) 5 mg PO Q6H PRN PRN PRN Reason: SEVERE PAIN (6-10/10) Sodium Chloride () 5 - 30 ml IV UD PRN PRN Reason: SALINE FLUSH Last Admin: 03/28/18 21:43 Dose: 10 ml Sodium Chloride ([place] Nasal [place]) 2 spray NASAL TID PRN PRN PRN Reason: NASAL DRYNESS Last Admin: 03/30/18 21:00 Dose: 2 spray Medical Necessity - Tobacco Use Smoking Status: Never smoker Assessment/Plan All Active Problems Ulcer of right great toe due to diabetes mellitus (Acute) Osteomyelitis (Acute) Vertigo (Acute) Cough (Acute) (dyspnea on exertion) (Acute) Pulmonary emboli (Acute) H/O aortic valve repair (Resolved) H/O thoracic aortic aneurysm repair (Resolved) Nausea (Resolved) PAF (paroxysmal atrial fibrillation) (Resolved) 1. Severe Sepsis with staph aureus bacteremia 2/2 most likely osteomyelitis from a diabetic foot wound as Staph aureus also cultured from wound. On appropriate IV antibiotics 2. 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 Application of wound vac no longer being considered and wound looking and doing better per podiatry surgery ID following and input appreciated. Appreciate input from Podiatry surgery Planned for PICC line today. 3. DM2 - OHA from home had been held - Started SSI and will add basal insulin as well. Resumed metformin and blood glucose levels are better Increased statin for primary CVD prevention 4. HTN. Well controlled on current regimen and will continue to monitor 5. ANTHONY. creatinine solis to 1.7 from baseline of 0.9. Beginning to improve with IVFs and clearance of infection. Continue to hold diuretics and ARBs/ACEI but may resume on discharge 6. Hypokalemia. Corrected. Code Visit Inpatient E&M: 27950 Subs Hosp L2
--- NOTE | 2018-03-31 17:19 | PN_ITS ---
Patient Problems: Active and Suspected Problems Ulcer of right great toe due to diabetes mellitus (Acute) Osteomyelitis (Acute) Subjective: f/u for diabetic foot infection Continue to feel better No new issues, no fever or chills Vitals/I&O's: Vital Signs Temp Pulse Resp BP Pulse Ox 97.9 F 60 16 151/74 H 97 03/31/18 10:33 03/31/18 10:33 03/31/18 10:33 03/31/18 10:33 03/31/18 10:33 Oxygen Flow Rate (L/min) 2 Oxygen Delivery Method Room Air Weight: 122.8 kg Body Mass Index (BMI) 35.9 Finger Stick Blood Glucose 165 Intake and Output for Last 24 Hours 03/29/18 03/30/18 03/31/18 23:59 23:59 23:59 Intake Total 4717 / 4717 3331 / 3331 1148 / 1148 Output Total 900 / 900 775 / 775 900 / 900 Balance 3817 / 3817 2556 / 2556 248 / 248 General: Alert, Oriented x3, Cooperative, No apparent distress HEENT: Atraumatic Oral: Moist Mucosa Neck: Supple, - - non labored Extremities: - - dressing over foot clean and dry Neurological: Cranial nerves II-XII grossly intact Psych/Mental Status: Normal Affect Microbiology Past 72 Hours 03/26/18 10:04 Blood Culture (Wb) - Right Hand Blood Culture - Final No growth in 5 days. 03/27/18 11:14 Blood Culture (Wb) - Left Hand Blood Culture - Preliminary No growth in 48 hours. Laboratory Results 03/30/18 05:55: Diff Path Review Reviewed 03/30/18 20:57: POC Glucose 165 H 03/31/18 06:29: POC Glucose 157 H 03/31/18 12:48: POC Glucose 166 H 03/31/18 14:00: WBC 12.2 H, RBC 3.84 L, Hgb 10.2 L, Hct 33.3 L, MCV 86.7, MCH 26.6 L, MCHC 30.6 L, RDW 14.6, RDW Differential 45.5 H, Plt Count 413, MPV 8.9, Neut % (Auto) Not Reportable, Absolute Neuts (auto) 9.4 H, Absolute Lymphs (auto ) 1.83, Total Counted 100, Neutrophils % (Manual) 77 H, Lymphocytes % (Manual) 15 L, Monocytes % (Manual) 7, Eosinophils % (Manual) 1, Diff Path Review May foll, Platelet Estimate ADEQUATE, RBC Morphology NORM C+C Current Medications Acetaminophen (Tylenol) 650 mg PO Q6H PRN PRN PRN Reason: Mild Pain (scale 0-3)/T>100.7 Last Admin: 03/28/18 18:36 Dose: 650 mg Aspirin (Aspirin, Baby) 81 mg PO DAILY@0800 [facility] Last Admin: 03/31/18 08:25 Dose: 81 mg Atorvastatin Calcium (Lipitor) 40 mg PO QHS [facility] Last Admin: 03/30/18 21:00 Dose: 40 mg Dextrose (D50w Syringe) 0 gm IV X1 PRN; Protocol PRN Reason: Hypoglycemia Glucagon () 1 mg IM .X1 PRN PRN Reason: Hypoglycemia Sodium Chloride () 250 mls @ 15 mls/hr IV .[id number] PRN PRN Reason: SALINE FLUSH Last Admin: 03/30/18 20:59 Dose: 15 mls/hr Cefazolin Sodium 2 gm/ Sodium (Chloride) 110 mls @ 150 mls/hr IV Q8 [facility] Last Admin: 03/31/18 15:54 Dose: 150 mls/hr Insulin Glargine (Lantus (Bkc)) 14 units SC DAILY [facility] Last Admin: 03/31/18 10:30 Dose: 14 units Insulin Human Lispro (Humalog Kwikpen (Bkc)) 0 unit SQ ACHS FRED PRN Reason: Protocol Last Admin: 03/31/18 12:49 Dose: 2 u Magnesium Hydroxide (Milk Of Magnesia) 30 ml PO DAILY PRN PRN PRN Reason: Constipation Melatonin (Melatonin) 10 mg PO QHS PRN PRN PRN Reason: INSOMNIA Last Admin: 03/30/18 23:36 Dose: 10 mg Metformin HCl (Glucophage) 1,000 mg PO BIDCM [facility] Last Admin: 03/31/18 08:25 Dose: 1,000 mg Metoprolol Succinate (Toprol Xl (Beta Red)) 200 mg PO DAILY [facility] Last Admin: 03/31/18 10:30 Dose: 200 mg Nutritional Formula (Lactose Free) (Glucerna Shake) 120 ml PO 4X/DAY [facility] Last Admin: 09/17/18 16:01 Dose: Not Given Oxycodone HCl (Oxyir) 5 mg PO Q6H PRN PRN PRN Reason: SEVERE PAIN (6-10/10) Sodium Chloride () 5 - 30 ml IV UD PRN PRN Reason: SALINE FLUSH Last Admin: 03/28/18 21:43 Dose: 10 ml Sodium Chloride ([place] Nasal [place]) 2 spray NASAL TID PRN PRN PRN Reason: NASAL DRYNESS Last Admin: 03/30/18 21:00 Dose: 2 spray Medical Necessity - Tobacco Use Smoking Status: Never smoker Assessment/Plan All Active Problems Ulcer of right great toe due to diabetes mellitus (Acute) Osteomyelitis (Acute) Vertigo (Acute) Cough (Acute) (dyspnea on exertion) (Acute) Pulmonary emboli (Acute) H/O aortic valve repair (Resolved) H/O thoracic aortic aneurysm repair (Resolved) Nausea (Resolved) PAF (paroxysmal atrial fibrillation) (Resolved) 1. Severe Sepsis with staph aureus bacteremia 2/2 most likely osteomyelitis from a diabetic foot wound as Staph aureus also cultured from wound. On appropriate IV antibiotics 2. 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 Application of wound vac no longer being considered and wound looking and doing better per podiatry surgery ID following and input appreciated. Appreciate input from Podiatry surgery Planned for PICC line today. 3. DM2 - OHA from home had been held - Started SSI and will add basal insulin as well. Resumed metformin and blood glucose levels are better Increased statin for primary CVD prevention 4. HTN. Well controlled on current regimen and will continue to monitor 5. ANTHONY. creatinine solis to 1.7 from baseline of 0.9. Beginning to improve with IVFs and clearance of infection. Continue to hold diuretics and ARBs/ACEI but may resume on discharge 6. Hypokalemia. Corrected. Code Visit Inpatient E&M: 82591 Subs Hosp L2
[2018-03-31 17:22] VITALS: BP 155/62; PULSE 57; RESP 16; TEMP 36.8; O2SAT 96
[2018-03-31 18:51] LABS: Bedside Glucose 120 mg/dL (70-110)
[2018-03-31] MEDS: Atorvastatin Calcium 40 MG Tablet PO (21:23)
[2018-03-31] MEDS: 0.9% NaCl Peripheral Flush Adult/Peds IV (21:24)
[2018-03-31 21:45] LABS: Bedside Glucose 156 mg/dL (70-110)
[2018-03-31 22:21] VITALS: BP 153/72; PULSE 62; RESP 16; TEMP 36.8; O2SAT 97
[2018-03-31] MEDS: MELATONIN 10 MG TABLET PO (23:22)
[2018-04-01 03:21] VITALS: BP 137/69; PULSE 63; RESP 16; TEMP 36.9; O2SAT 98
[2018-04-01] MEDS: Cefazolin 2 GM in 0.9% Normal Saline 100 ML IV (06:09)
[2018-04-01 07:01] LABS: Bedside Glucose 132 mg/dL (70-110)
--- NOTE | 2018-04-01 07:15 | PN.SURG_ITS ---
Patient Problems: Active and Suspected Problems Ulcer of right great toe due to diabetes mellitus (Acute) Osteomyelitis (Acute) Subjective: Patient seen at bedside this morning with no complaints. patient denies n/v/f/ c. patient has no pain to his right foot Objective: Patient is alert and orientated x 3. no acute distress. surgical incision to right foot is approximated with small opening along central aspect. there is no redness, there is no drainage. there are no local signs of infection. no fluctuance to amputation site. no active bleeding is noted. no calf pain noted b/l. no decubitus ulcerations noted b/l. - Physical Exam Vital Signs Temp Pulse Resp BP Pulse Ox 98.4 F 63 16 137/69 H 98 04/01/18 03:21 04/01/18 03:21 04/01/18 03:21 04/01/18 03:21 04/01/18 03:21 Oxygen Flow Rate (L/min) 2 Oxygen Delivery Method Room Air Weight: 122.8 kg Body Mass Index (BMI) 35.9 Finger Stick Blood Glucose 165 Intake and Output for Last 24 Hours 03/30/18 03/31/18 04/01/18 23:59 23:59 23:59 Intake Total 3331 / 3331 1598 / 1598 1030 / 1030 Output Total 775 / 775 900 / 900 Balance 2556 / 2556 698 / 698 1030 / 1030 Microbiology Past 72 Hours 03/26/18 10:04 Blood Culture - Final Blood Culture (Wb) - Right Hand No growth in 5 days. 03/27/18 11:14 Blood Culture - Preliminary Blood Culture (Wb) - Left Hand No growth in 48 hours. Laboratory Tests Past 24 Hrs 03/30/18 03/31/18 05:55 14:00 WBC 12.2 H RBC 3.84 L Hgb 10.2 L Hct 33.3 L MCV 86.7 MCH 26.6 L MCHC 30.6 L RDW 14.6 RDW Differential 45.5 H Plt Count 413 MPV 8.9 Neut % (Auto) Not Reportable Absolute Neuts (auto) 9.4 H Absolute Lymphs (auto) 1.83 Total Counted 100 Neutrophils % (Manual) 77 H Lymphocytes % (Manual) 15 L Monocytes % (Manual) 7 Eosinophils % (Manual) 1 Diff Path Review Reviewed May foll Platelet Estimate ADEQUATE RBC Morphology NORM C+C POC Glucose 04/01/18 03/31/18 03/31/18 06:54 21:20 17:07 POC Glucose 132 H 156 H 120 H 03/31/18 12:48 POC Glucose 166 H Medical Necessity - Tobacco Use Smoking Status: Never smoker Assessment/Plan All Active Problems Ulcer of right great toe due to diabetes mellitus (Acute) Osteomyelitis (Acute) Vertigo (Acute) Cough (Acute) (dyspnea on exertion) (Acute) Pulmonary emboli (Acute) H/O aortic valve repair (Resolved) H/O thoracic aortic aneurysm repair (Resolved) Nausea (Resolved) PAF (paroxysmal atrial fibrillation) (Resolved) Patient foot examined today. foot appears stable with no signs of acute infection. wbc elevated yesterday and I discussed with infectious disease. will recheck wbc this am. surgical incision mostly approximated nicely without signs of infection. small opening dressed today with silvercel. will allow this to heal secondarily. I have spoken with lab. cultures from hallux (pre-lavage) shows mssa. no results on post-lavage in chart. Discussed with lab and apparently, the 1st metatarsal does have rare staph growth but again, no results in chart. pathology is negative for osteomyelitis of 1st metatarsal. I discussed these results with patient. patient still wants to try and save this foot with antibiotics and at this time, he does not wish to pursue any further surgical intervention. pending wbc, will allow patient for discharge to rehab. I will have patient f/u in my clinic. He will need this foot dressed daily with betadine, silvercel along incision, 4x4 along incision, dorsal foot and lateral 5th metatarsal followed by yu and compressive bernie. He will need surgical shoe and is permitted to ambulate to his right heel. I briefly discussed role of hyperbarics. this could be an option pending appearance of foot at follow-up visits. Patient understands future surgical debridements may be necessary pending appearance at future follow-up and he also understands further bone resection if foot does not improve.
[2018-04-01 07:50] LABS: Absolute Lymphocyte Count 2.06 X10^3/ul (0.83-4.51); Absolute Neutrophil Count 7.9 X10^3/uL (2.0-7.7); Basophil# 0.03 X10^3/uL; Basophil% 0.3 % (0-1); Eosinophil# 0.47 X10^3/uL; Eosinophils% 4.1 % (0-5); Hematocrit 30.1 % (40-54); Hemoglobin 9.4 g/dl (13.0-16.5); Lymphocyte # 2.06 X10^3/ul (4.0); Lymphocyte % 18.1 % (19-41); Mean Corp Hgb Conc 31.2 g/gl (32-36); Mean Corpuscular Volume 86.5 fL (80-94); Monocyte# 0.66 X10^3/uL; Monocyte% 5.8 % (0-10); Neutrophil # 7.92 X10^3/uL (2.7-7.7); Neutrophil % 69.3 % (47-70); Platelet Count 361 K/mm3 (150-450); RBC Distribution Width CV 14.4 % (11.6-14.6); RBC Distribution Width SD 45.2 fl (35.1-43.9); Red Blood Count 3.48 M/mm3 (4.6-6.2); White Blood Count 11.4 K/mm3 (4.4-11.0)
[2018-04-01 07:58] LABS: Differential Indicated SCAN CRITERIA MET; POSITIVE COUNT YES; POSITIVE DIFFERENTIAL NO; POSITIVE MORPHOLOGY YES
[2018-04-01 08:21] VITALS: BP 121/60; PULSE 61; RESP 18; TEMP 37; O2SAT 98
[2018-04-01 08:22] VITALS: PULSE 61
[2018-04-01] MEDS: Aspirin 81 MG TAB.CHEW PO (08:22)
[2018-04-01] MEDS: Metoprolol(XL)Succ 200 MG Tablet PO (08:22)
[2018-04-01] MEDS: metFORMIN HCl 1,000 MG Tablet 1000 MG PO (08:23)
[2018-04-01] MEDS: Glucerna Shake 120 ML LIQUID PO (08:26)
--- NOTE | 2018-04-01 09:15 | CASEMGMT ---
Social Work Note SW faxed updated clinicals to [facility]. Pt should discharge to SNF today. SW will continue to follow along to assist with discharge planning. Plan: Discharge to [facility] when medically cleared Shirley Tello MSW, METAL TRIM ERECTOR
[2018-04-01 10:37] LABS: Pathologist Review Reviewed
--- NOTE | 2018-04-01 11:00 | PCM.PN.ID ---
Patient Problems: Active and Suspected Problems Ulcer of right great toe due to diabetes mellitus (Acute) Osteomyelitis (Acute) Subjective: Feeling well, no issues with picc, no fever. - Physical Exam General: Alert, Cooperative, No apparent distress Lungs: Clear to auscultation, Normal air movement Cardiovascular: Regular rate, Regular Rhythm Abdomen: Soft, Non Tender, Non-Distended Skin: No rashes Vital Signs Temp Pulse Resp BP Pulse Ox 98.6 F 61 18 121/60 H 98 04/01/18 08:21 04/01/18 08:22 04/01/18 08:21 04/01/18 08:21 04/01/18 08:21 Oxygen Flow Rate (L/min) 2 Oxygen Delivery Method Room Air Weight: 122.8 kg Body Mass Index (BMI) 35.9 Finger Stick Blood Glucose 165 Intake and Output for Last 24 Hours 03/30/18 03/31/18 04/01/18 23:59 23:59 23:59 Intake Total 3331 / 3331 1598 / 1598 1030 / 1030 Output Total 775 / 775 900 / 900 Balance 2556 / 2556 698 / 698 1030 / 1030 Microbiology Past 72 Hours 03/26/18 10:04 Blood Culture - Final Blood Culture (Wb) - Right Hand No growth in 5 days. 03/27/18 11:14 Blood Culture - Preliminary Blood Culture (Wb) - Left Hand No growth in 48 hours. Laboratory Tests Past 24 Hrs 03/30/18 03/31/18 04/01/18 05:55 14:00 07:10 WBC 12.2 H 11.4 H RBC 3.84 L 3.48 L Hgb 10.2 L 9.4 L Hct 33.3 L 30.1 L MCV 86.7 86.5 MCH 26.6 L 27.0 MCHC 30.6 L 31.2 L RDW 14.6 14.4 RDW Differential 45.5 H 45.2 H Plt Count 413 361 MPV 8.9 9.0 Immature Gran % (Auto) 2.400 H Neut % (Auto) Not Reportable 69.3 Lymph % (Auto) 18.1 L [place] % (Auto) 5.8 Eos % (Auto) 4.1 Baso % (Auto) 0.3 Absolute Neuts (auto) 9.4 H 7.9 H Absolute Lymphs (auto) 1.83 2.06 Total Counted 100 Not Reportable Neutrophils % (Manual) 77 H Lymphocytes % (Manual) 15 L Monocytes % (Manual) 7 Eosinophils % (Manual) 1 Differential Comment COMMENT Diff Path Review Reviewed Reviewed May foll Platelet Estimate ADEQUATE RBC Morphology NORM C+C POC Glucose 04/01/18 03/31/18 03/31/18 06:54 21:20 17:07 POC Glucose 132 H 156 H 120 H 03/31/18 12:48 POC Glucose 166 H Medical Necessity - Tobacco Use Smoking Status: Never smoker Route of nutrition/ use of supplements: [] Nutritional Intake: [] IV Site: [] Rodrigues Catheter: [] - Assessment/Plan Antibiotics: [] Assessment/Plan: [] Active and Suspected Problems Ulcer of right great toe due to diabetes mellitus (Acute) Osteomyelitis (Acute) severe sepsis (fever, leukocytosis, ANTHONY, lactic acidosis) due to MSSA bacteremia from R 1st toe osteo - MRI with ? involvement of 1st phalanx. Now s/p toe amp by Dr. Obregon 03/25. Has soft murmur at LUSB and splinter hemorrhage on thumb, but TTE with no veg. On zosyn. Initial wound cx also with proteus. Plan will be for 6 weeks of iv abx at discharge to cover for likely residual osteo and possible endocarditis with q8h cefazolin, stop date 05/07/18. Weekly bmp, cbc, and esr. Picc in place. Will follow, d/w case management rn. Rx written for labs and abx. ID follow up with me at my office or at [facility] in 3-4 weeks.
--- NOTE | 2018-04-01 11:37 | TREXTCAR_ITS ---
- Diet 03/28/18 17:11 Diabetic [Diet: Calorie Controlled] Is pt able to select menu?: Yes How many daily calories?: 1800 calorie - Routine Orders/Code Status Routine Lab Work: INR - weekly starting tomorrow, - - fingerstick blood sugars ACQHS- cover with Humalog SQ per result: 200-250: 5 units, 251-300: 8 units, 301 -350: 12 units, 351-400: 15 units Code Status: Full Code - Wound(s) RIGHT BIG TOE Wound Type: Surgical Incision Dressing Change: Dry Sterile Dressing RT FOOT Wound Type: Surgical Incision Dressing Change: Dry Sterile Dressing - Therapies Weight Bearing: on right heel with surgical shoe - Problem/Diagnosis (1) Ulcer of right great toe due to diabetes mellitus Status: Acute Current Visit: Yes (2) Osteomyelitis Status: Acute Comment: right first toe Current Visit: Yes (3) HLD (hyperlipidemia) Status: Chronic Current Visit: No (4) DM II (diabetes mellitus, type II), controlled Status: Chronic Current Visit: No (5) HTN (hypertension) Status: Chronic Current Visit: No (6) Diabetic neuropathy Status: Acute Current Visit: Yes (7) Severe sepsis Status: Acute Current Visit: Yes - Allergies/Procedures Done in Hospital Allergies/Adverse Reactions: Allergies No Known Allergies Allergy (Verified 03/24/18 21:16) Procedures: - - 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 Use surgical shoe and is permitted to ambulate to his right heel H&P will serve as current which was dated: 03/24/18 Day of Discharge: 04/01/18 - Dietary and Speech Recommendations Dietitian Recommendations/Changes: Rec 1 packet Luis BID for wound healing - Follow Up Care Primary Care Physician: Chidi Christian III, MD [Primary Care Provider] - Please Follow Up With: Zachary Obregon DPM When: this Please Follow Up With: Smith Leija MD When: in wound center in 3-4 weeks
[2018-04-01 11:51] LABS: Bedside Glucose 148 mg/dL (70-110)
--- NOTE | 2018-04-01 12:41 | NURSING ---
call placed to [facility] and report given to nurse whom will be taking over care
--- NOTE | 2018-04-01 12:50 | CASEMGMT ---
Social Work Note Pt is being discharged today. VERO faxed completed discharge paperwork to [facility] including transfer to extended care facility, signed medication list and any scripts. Originals in SNF folder and copy on pt's chart. VERO completed convalescent 7000 in [facility]. Originals in SNF folder and copy on pt's chart. VERO also faxed PICC line insertion assessment to [facility] as this was requested by Anaid in admissions. JACEY Oakes informed this worker that pt's will be transporting pt to SNF. VERO placed a call to Anaid in admissions and updated her on discharge and that pt's will be transporting pt. Anaid states understanding. Plan: Pt to discharge to [facility] today under skilled with pt's transporting Shirley Saules WEIGHT COUNT OPERATOR, FIELD CHECKER
[2018-04-01 13:40] LABS: Pathologist Review Reviewed
--- NOTE | 2018-04-04 18:11 | PCM.DC.SUM ---
Discharge Date and Diagnosis Date of Admission: 03/24/18 Date of Discharge: 04/01/18 - Primary Discharge Diagnosis #1 severe sepsis secondary to methicillin sensitive staph aureus from osteomyelitis from a neuropathic diabetic foot infection in the right great toe present on admission #2 osteomyelitis of the right great toe with methicillin sensitive staph aureus #3 diabetic neuropathic foot infection right hallux methicillin sensitive staph aureus #4 type 2 diabetes-uncontrolled #5 hypertension #6 dehydration #7 Hypokalemia #8 diabetic neuropathy - Secondary Discharge Diagnosis Chronic Problems HLD (hyperlipidemia) (Chronic) 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 Patient has a chronic ulceration of his right great toe and had been seeing a safety advisor for the past 3 weeks. Patient also complained that he developed a temperature 100.4. Workup in the emergency room showed an elevated white count at 17.3, BUN was 32, creatinine is 1.75, glucose is 271, lactic acid was 3.1. Right great toe x-ray showed possible osteomyelitis involving the undersurface of the first distal phalanx. Patient had wound cultures obtained in the emergency room, he was placed on IV Zosyn and IV vancomycin and given IV fluids. He was admitted to medical surgical floor 2 and seen in consultation by podiatry and infectious diseases. Cultures grew out methicillin sensitive staph aureus, patient was taken to surgery on 03/25/18 an amputation of the right hallux was performed. Patient was seen by PT and OT, it was felt that the patient would benefit from short-term placement in longterm facility. On 04/01/18, patient was seen and examined felt to be in stable condition for transfer to longterm facility for continued rehab and IV antibiotic treatment. Further note: Patient had no indication of acute kidney injury during his hospitalization but had evidence of dehydration. Home Medications: Medications to take at Discharge Metoprolol(XL)Succ [Toprol Xl (Beta Red)] 200 mg PO DAILY 09/16/13 Aspirin [Aspirin, Baby] 81 mg PO DAILY@0800 #30 tab.chew 09/19/13 Warfarin [Coumadin] 5 mg PO DAILY #30 tablet 09/19/13 Losartan Potassium 50 mg PO DAILY 03/24/18 Metformin HCl [Metformin HCl ER] 1,000 mg PO BID 03/24/18 Cefazolin 2 gm IV Q8 37 Days #111 vial 03/31/18 Acetaminophen [Tylenol Tablet] 650 mg PO Q6H PRN PRN tablet 04/01/18 Atorvastatin Calcium [Lipitor] 40 mg PO QHS tablet 04/01/18 Insulin Glargine [Lantus SoloStar Pen] 14 units SC DAILY pen 04/01/18 Melatonin 10 mg PO QHS PRN PRN tablet 04/01/18 Oxycodone [Oxyir] 5 mg PO Q6H PRN PRN 7 Days #28 tab 04/01/18 Following Prescrptions Were Given to Patient: Oxycodone [Oxyir] 5 mg PO Q6H PRN PRN 7 Days #28 tab PRN Reason: Pain Cefazolin 2 gm IV Q8 37 Days #111 vial Primary Care Physician: Chidi Christian III, MD [Primary Care Provider] - Please Follow Up With: Zachary Obregon DPM When: this Please Follow Up With: Smith Leija MD When: in wound center in 3-4 weeks Disposition: Jail facility Minutes spent on discharge:: 34 Patient Condition:: Stable Medical Necessity - Tobacco Use Smoking Status: Never smoker Meaningful Use Info Meaningful Use Diagnoses (Choose all that apply): None applicable Code Visit Inpatient E&M: 83323 Disch Hosp
--- NOTE | 2018-04-04 18:19 | DS.PCM_ITS ---
Discharge Date and Diagnosis Date of Admission: 03/24/18 Date of Discharge: 04/01/18 - Primary Discharge Diagnosis #1 severe sepsis secondary to methicillin sensitive staph aureus from osteomyelitis from a neuropathic diabetic foot infection in the right great toe present on admission #2 osteomyelitis of the right great toe with methicillin sensitive staph aureus #3 diabetic neuropathic foot infection right hallux methicillin sensitive staph aureus #4 type 2 diabetes-uncontrolled #5 hypertension #6 dehydration #7 Hypokalemia #8 diabetic neuropathy - Secondary Discharge Diagnosis Chronic Problems HLD (hyperlipidemia) (Chronic) 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 Patient has a chronic ulceration of his right great toe and had been seeing a gas dispenser for the past 3 weeks. Patient also complained that he developed a temperature 100.4. Workup in the emergency room showed an elevated white count at 17.3, BUN was 32, creatinine is 1.75, glucose is 271, lactic acid was 3.1. Right great toe x-ray showed possible osteomyelitis involving the undersurface of the first distal phalanx. Patient had wound cultures obtained in the emergency room, he was placed on IV Zosyn and IV vancomycin and given IV fluids. He was admitted to medical surgical floor 2 and seen in consultation by podiatry and infectious diseases. Cultures grew out methicillin sensitive staph aureus, patient was taken to surgery on 03/25/18 an amputation of the right hallux was performed. Patient was seen by PT and OT, it was felt that the patient would benefit from short-term placement in [facility] facility. On 04/01/18, patient was seen and examined felt to be in stable condition for transfer to [facility] facility for continued rehab and IV antibiotic treatment. Further note: Patient had no indication of acute kidney injury during his hospitalization but had evidence of dehydration. Home Medications: Medications to take at Discharge Metoprolol(XL)Succ [Toprol Xl (Beta Red)] 200 mg PO DAILY 09/16/13 Aspirin [Aspirin, Baby] 81 mg PO DAILY@0800 #30 tab.chew 09/19/13 Warfarin [Coumadin] 5 mg PO DAILY #30 tablet 09/19/13 Losartan Potassium 50 mg PO DAILY 03/24/18 Metformin HCl [Metformin HCl ER] 1,000 mg PO BID 03/24/18 Cefazolin 2 gm IV Q8 37 Days #111 vial 03/31/18 Acetaminophen [Tylenol Tablet] 650 mg PO Q6H PRN PRN tablet 04/01/18 Atorvastatin Calcium [Lipitor] 40 mg PO QHS tablet 04/01/18 Insulin Glargine [Lantus SoloStar Pen] 14 units SC DAILY pen 04/01/18 Melatonin 10 mg PO QHS PRN PRN tablet 04/01/18 Oxycodone [Oxyir] 5 mg PO Q6H PRN PRN 7 Days #28 tab 04/01/18 Following Prescrptions Were Given to Patient: Oxycodone [Oxyir] 5 mg PO Q6H PRN PRN 7 Days #28 tab PRN Reason: Pain Cefazolin 2 gm IV Q8 37 Days #111 vial Primary Care Physician: Chidi Christian III, MD [Primary Care Provider] - Please Follow Up With: Zachary Obregon DPM When: this Please Follow Up With: Smith Leija MD When: in wound center in 3-4 weeks Disposition: Assisted facility Minutes spent on discharge:: 34 Patient Condition:: Stable Medical Necessity - Tobacco Use Smoking Status: Never smoker Meaningful Use Info Meaningful Use Diagnoses (Choose all that apply): None applicable Code Visit Inpatient E&M: 60177 Disch Hosp
== END 2018-04-01 13:19 | disposition skilled nursing facility (03) | DRG 854 ==
LOC: ED 23:44 → MS2 03-25 00:03
PROVIDERS: Anesthesiology; Family Medicine; Internal Medicine; Podiatrist Foot & Ankle Surgery; Admitting Provider Family Medicine; Emergency Provider Emergency Medicine; Family Provider Family Medicine; PCP Family Medicine; Visit Provider Internal Medicine
PROC: 0Y6P0Z0 Detachment at Right 1st Toe, Complete, Open Approach (ICD-10-PCS; principal; 2018-03-25 07:15)
PROC: 0JDQ0ZZ Extraction of Right Foot Subcutaneous Tissue and Fascia, Open Approach (ICD-10-PCS; principal; 2018-03-28 14:20)
DX: A41.01 Sepsis due to Methicillin susceptible Staphylococcus aureus (principal); N17.9 Acute kidney failure, unspecified; M86.171 Other acute osteomyelitis, right ankle and foot; L03.115 Cellulitis of right lower limb; R65.20 Severe sepsis without septic shock; E11.69 Type 2 diabetes mellitus with other specified complication; E78.5 Hyperlipidemia, unspecified; I10 Essential (primary) hypertension; E11.621 Type 2 diabetes mellitus with foot ulcer; L97.519 Non-pressure chronic ulcer of other part of right foot with unspecified severity; B95.61 Methicillin susceptible Staphylococcus aureus infection as the cause of diseases classified elsewhere; Z79.84 Long term (current) use of oral hypoglycemic drugs; Z79.899 Other long term (current) drug therapy; E11.42 Type 2 diabetes mellitus with diabetic polyneuropathy; Z86.711 Personal history of pulmonary embolism
CPT/HCPCS: 36415; 36569; 73620; 73630; 73660; 73718; 76000; 80048; 80053; 82962; 83036; 83605; 85025; 85610; 85730; 87015; 87040; 87070; 87075; 87077; 87102; 87116; 87149; 87186; 87205; 87206; 87640; 88304; 88305; 88311; 88312; 93005; 93306; 97110; 97116; 97161; 97166; 97530; 97802; 99284; J7030; J7040; J7050; J7120; A4216

== ENCOUNTER → 2018-05-07 05:00 | Outpatient (REF) | payer MEDICARE, OTHER, SELFPAY ==
[2018-05-07 09:37] LABS: Erythrocyte Sedimentation Rate 17 mm/hr (0-20)
[2018-05-07 09:40] LABS: Absolute Lymphocyte Count 1.86 X10^3/ul (0.83-4.51); Absolute Neutrophil Count 6.5 X10^3/uL (2.0-7.7); Basophil# 0.02 X10^3/uL; Basophil% 0.2 % (0-1); Eosinophil# 0.39 X10^3/uL; Eosinophils% 4.1 % (0-5); Hematocrit 35.6 % (40-54); Lymphocyte # 1.86 X10^3/ul (4.0); Lymphocyte % 19.6 % (19-41); Mean Corp Hgb Conc 30.9 g/gl (32-36); Mean Corpuscular Hgb 26.7 pg (27.0-32.0); Mean Corpuscular Volume 86.4 fL (80-94); Mean Platelet Vol. 9.5 fl (6.2-12.0); Monocyte# 0.66 X10^3/uL; Neutrophil # 6.52 X10^3/uL (2.7-7.7); Neutrophil % 68.7 % (47-70); POSITIVE COUNT NO; POSITIVE DIFFERENTIAL NO; POSITIVE MORPHOLOGY NO; Platelet Count 219 K/mm3 (150-450); RBC Distribution Width CV 14.4 % (11.6-14.6); RBC Distribution Width SD 45.1 fl (35.1-43.9); Red Blood Count 4.12 M/mm3 (4.6-6.2); White Blood Count 9.5 K/mm3 (4.4-11.0)
[2018-05-07 09:45] LABS: Anion Gap 8 (5-15); BUN 30 mg/dL (7-18); BUN/Creat Ratio 26.1 RATIO (10-20); Calcium,Total 8.7 mg/dL (8.5-10.1); Chloride 103 mmol/L (98-107); Creatinine, Serum 1.15 mg/dL (0.70-1.30); EST Glomerular Filtration Rate 67 mL/min (>60); Est Glom Filt Rate - Afr Amer 81 mL/min (>60); Glucose 128 mg/dL (74-106); Potassium 3.9 mmol/L (3.5-5.1); Sodium Level 140 mmol/L (136-145)
[2018-05-28 10:06] VITALS: BMI 35.1
== END ==
LOC: OLS.ACH 05:00
PROVIDERS: Visit Provider Family Medicine
DX: M86.9 Osteomyelitis, unspecified (principal)
CPT/HCPCS: 36415; 80048; 85025; 85652

== ENCOUNTER 2018-05-22 12:28 | Inpatient (IN) | payer MEDICARE, OTHER, SELFPAY ==
[2018-05-22 12:50] VITALS: BMI 35.1
[2018-05-22 13:16] VITALS: BP 136/73; PULSE 83; RESP 16; TEMP 37; O2SAT 99
--- NOTE | 2018-05-22 13:29 | PCM.HP.STD ---
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 Wound cultures came back positive for methicillin sensitive staph aureus and was treated with cefazolin. He completed treatment 2 weeks prior to his current admission. Patient follows up with podiatry Dr Obregon who sent patient from his office after patient was noticed to have developed a dehiscence of his wound. On further questioning patient denied any subjective fever no chills. Denies any warmth or redness involving the right lower extremity. 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) DM II (diabetes mellitus, type II), controlled (Chronic) Pulmonary emboli (Chronic) HTN (hypertension) (Chronic) Allergies No Known Allergies Allergy (Verified 03/24/18 21:16) Home Medications: Ambulatory Orders Medication Instructions Recorded Metoprolol(XL)Succ [Toprol Xl 200 mg PO DAILY 09/16/13 (Beta Red)] Losartan Potassium 50 mg PO DAILY 03/24/18 Metformin HCl [Metformin HCl ER] 1,000 mg PO BID 03/24/18 Acetaminophen [Tylenol Tablet] 650 mg PO Q6H PRN PRN tablet 04/01/18 Melatonin 10 mg PO QHS PRN PRN tablet 04/01/18 Aspirin [Aspirin, Baby] 81 mg PO DAILY@0800 05/22/18 Atorvastatin Calcium [Lipitor] 40 mg PO QHS 05/22/18 Dulaglutide [Trulicity] 1.5 mg SQ QWEEK 05/22/18 Insulin Glargine [Lantus SoloStar 22 units SC DAILY 05/22/18 Pen] Insulin Lispro [Humalog KwikPen] See Protocol SQ 4X/DAY 05/22/18 Warfarin [Coumadin] 5 mg PO DAILY 05/22/18 Surgical History: - - Repair of a thoracic aortic aneurysm and aortic valve repair in 2006. Patient also had an MRSA infection in his abdomen before and had quite extensive debridement. Smoking Status: Never smoker - *Family History Maternal History Items: Heart Disease Review of Systems Constitutional: Denies: Anorexia, Chills, Fever, Night Sweats, Weight Change HEENT: Denies: Head Aches, Sinus Congestion, Sinus Drainage Cardiovascular: Denies: Chest Pain, Orthopnea, Palpitations, Paroxysmal Noc. Dyspnea Respiratory: Denies: Cough, Shortness of breath at rest, Shortness of breath upon exertion, Sputum production Gastrointestinal: Denies: Abdominal Pain, Hematemesis, Hematochezia, Nausea, Melena, Vomiting Genitourinary: Denies: Dysuria, Frequency, Hematuria, Urgency Musculoskeletal: Denies: Joint Pain, Joint Tenderness Skin: Reports: Wounds. Denies: Rash Neurological: Denies: Focal weakness, Numbness, Tingling Psychiatric: Denies: Homicidal Ideations, Suicidal Ideations Hematologic/ Lymphatic: Reports: Easy Bruising, Easy Bleeding VTE Information - Inpt Only VTE Present on Admission: No VTE Mechan Device Prophylaxis: Knee High HERMILO Hose VTE Pharm Prophylaxis ordered?: Yes Patient Problems: Active and Suspected Problems Wound dehiscence (Acute) Objective: GENERAL: cooperative HEENT: Atraumatic; moist oral mucosa EYES; Anicteric, Normal Conjunctiva NECK; supple, normal thyroid, no distended JVD. RESPIRATORY: Diminished to auscultation bilaterally, CARDIOVASCULAR: Regular S1 S2, no audible murmurs GI: soft, non-tender, normoactive bowel sounds, : No Renal angle tenderness; EXTREMITIES: Bleeding from her right hallux stump MUSCULOSKELETAL: No Joint Tenderness; no muscle waisting NEURO: Awake; no lateralizing signs. SKIN: No Rash PSYCH; Normal affect - Physical Exam Vital Signs Temp Pulse Resp BP Pulse Ox 98.6 F 83 16 136/73 H 99 05/22/18 13:16 05/22/18 13:16 05/22/18 13:16 05/22/18 13:16 05/22/18 13:16 Oxygen Delivery Method Room Air Weight: 120.656 kg Body Mass Index (BMI) 35.1 Finger Stick Blood Glucose 165 Assessment/Plan All Active Problems Severe sepsis (Resolved) Wound dehiscence (Acute) Vertigo (Resolved) Cough (Resolved) (dyspnea on exertion) (Resolved) H/O aortic valve repair (Resolved) H/O thoracic aortic aneurysm repair (Resolved) Nausea (Resolved) PAF (paroxysmal atrial fibrillation) (Resolved) Patient is a 72-year-old gentleman with multiple comorbidities including recent admission for diabetic foot infection with osteomyelitis involving the right hallux for which he underwent amputation. Hospital stay was apparently complicated by wound with MSSA patient presents with wound dehiscence 1. Wound dehiscence involving the stump of the right big toe for which patient underwent amputation as a result of osteomyelitis with MSSA. Patient has been admitted to regular nursing floor. Cultures were sent on admission. Held off initiating antibiotics. Consultation was placed to podiatry Dr. Obregon as well as Dr. Leija infectious disease 2. 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 Patient oral hypoglycemic agents held did initiate long-acting insulin with sliding scale coverage 3. History of aortic aneurysm status post repair 4. History of aortic valvuloplasty 5. Essential hypertension did continue patient home medications with plans to adjust doses if needed 6. Dyslipidemia 7. History of previous pulmonary embolism patient is on systemic anticoagulation with Coumadin INR is therapeutic 8. DVT prophylaxis already on Coumadin no need for additional measures Code Visit Inpatient E&M: 00693 Init Hosp L3
[2018-05-22 14:03] LABS: Absolute Lymphocyte Count 1.38 X10^3/ul (0.83-4.51); Absolute Neutrophil Count 6.5 X10^3/uL (2.0-7.7); Basophil# 0.02 X10^3/uL; Basophil% 0.2 % (0-1); Eosinophil# 0.32 X10^3/uL; Eosinophils% 3.6 % (0-5); Hemoglobin 11.1 g/dl (13.0-16.5); Lymphocyte # 1.38 X10^3/ul (4.0); Lymphocyte % 15.5 % (19-41); Mean Corp Hgb Conc 31.7 g/gl (32-36); Mean Corpuscular Hgb 26.8 pg (27.0-32.0); Mean Corpuscular Volume 84.5 fL (80-94); Mean Platelet Vol. 8.8 fl (6.2-12.0); Monocyte# 0.65 X10^3/uL; Monocyte% 7.3 % (0-10); Neutrophil # 6.51 X10^3/uL (2.7-7.7); Platelet Count 229 K/mm3 (150-450); RBC Distribution Width CV 14.3 % (11.6-14.6); RBC Distribution Width SD 44.2 fl (35.1-43.9); Red Blood Count 4.14 M/mm3 (4.6-6.2); White Blood Count 8.9 K/mm3 (4.4-11.0)
[2018-05-22 14:04] LABS: POSITIVE COUNT NO; POSITIVE DIFFERENTIAL NO; POSITIVE MORPHOLOGY NO
[2018-05-22 14:09] LABS: International Normalized Ratio 3.1; Prothrombin Time (Protime)PT. 31.9 SECONDS (11.7-14.9)
[2018-05-22 14:18] LABS: ALB/GLOB Ratio 0.8 RATIO (0.9-2.4); AST(SGOT) 6 U/L (15-37); Alanine Aminotransfer ALT/SGPT 18 U/L (16-61); Alkaline Phosphatase 97 U/L (45-117); Anion Gap 7 (5-15); BUN 20 mg/dL (7-18); Calcium,Total 8.7 mg/dL (8.5-10.1); Chloride 106 mmol/L (98-107); Creatinine, Serum 1.11 mg/dL (0.70-1.30); EST Glomerular Filtration Rate 70 mL/min (>60); Est Glom Filt Rate - Afr Amer 84 mL/min (>60); Estimated Creatinine Clearance 69.98 ml/min; Globulin 3.8 g/dL (2.2-4.2); Glucose 128 mg/dL (74-106); Magnesium 1.6 mg/dL (1.6-2.6); Potassium 4.9 mmol/L (3.5-5.1); Protein, Total 6.8 g/dL (6.4-8.2); Sodium Level 141 mmol/L (136-145)
--- NOTE | 2018-05-22 14:38 | MRI_ITS ---
STUDY: MRI RIGHT MIDFOOT REASON FOR EXAM: Male, 72 years old. Osteomyelitis first distal metatarsal. History of prior amputation. TECHNIQUE: Standardized fat and water weighted pulse sequences were obtained in all 3 orthogonal planes. COMPARISON: X-ray foot 03/31/2018. FINDINGS: This study is limited by limited T2-weighted sequences with fat saturation and lack of contrast. Patient is status post amputation at the first MTP joint. There is marked signal abnormality at the amputation site and about the first metatarsal head, including significant edema collection is identified immediately distal to the first metatarsal head measuring approximately 2 x 1 cm. Evaluation is limited without contrast. Ulceration is noted in the medial foot at the level of the first metatarsal head. Marrow edema is noted in the first metatarsal head and distal shaft. There is cortical destruction in the plantar aspect of the first metatarsal head, seen on series 5 image 18. Marrow signal is otherwise unremarkable. Second through fifth metatarsals and phalanges are intact. Joint spaces are well-maintained. Edema of the deep plantar muscles is noted. MRI/Lower Ext/No Jt/w/o IMPRESSION: 1. Findings consistent with osteomyelitis of the first metatarsal head. 2. Suspected abscess distal to the first metatarsal head. Electronically Signed: Mila Russell MD at 21:00 EST Tel , Service support ,
--- NOTE | 2018-05-22 15:36 | NURSING ---
wound photo: right foot s/p amputation right great toe
[2018-05-22 15:59] LABS: M R Staph aureus DNA By PCR Negative (Negative); Probe Check PASS; Specimen Processing Control PASS
[2018-05-22 16:45] LABS: Bedside Glucose 104 mg/dL (70-110)
[2018-05-22 17:59] VITALS: BP 126/94; PULSE 88; RESP 16; TEMP 36.7; O2SAT 96
[2018-05-22] MEDS: Glucerna Shake 120 ML LIQUID PO ×2 (18:13→21:55)
[2018-05-22] MEDS: 0.9% NaCl Peripheral Flush Adult/Peds IV ×2 (18:13→21:59)
--- NOTE | 2018-05-22 18:14 | CON.PCM_ITS ---
Reason for Consult Date of Consultation: 05/22/18 History of Present Illness: The patient is a 72 year old M with diabetes who underwent right hallux amputation in march for osteomyelitis. his initial surgical wound was packed open following amputation and then later closed. Unfortunately, several days following delayed closure, he was found to have significant post-operative fluid collection/drainage so the wound was partially opened and treated with wound vac therapy. He has completed 6 weeks of IV antibiotics and has been followed by infectious disease. He has been treated with wound vac therapy but unfortunately, he has been experiencing difficulty maintaining seal and his wound has slowly transitioned into nonhealing. two weeks ago, the wound was closed under sterile technique. Last week, the wound was progressing and showing progress towards healing. Unfortunately, he was seen in my office today and his wound dehisced and there is hypergranulation tissue present. there is no redness to his foot. there is no drainage. there are no local signs of infection. 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) DM II (diabetes mellitus, type II), controlled (Chronic) Pulmonary emboli (Chronic) HTN (hypertension) (Chronic) Allergies No Known Allergies Allergy (Verified 03/24/18 21:16) Home Medications: Ambulatory Orders Medication Instructions Recorded Metoprolol(XL)Succ [Toprol Xl 200 mg PO DAILY 09/16/13 (Beta Red)] Losartan Potassium 50 mg PO DAILY 03/24/18 Metformin HCl [Metformin HCl ER] 1,000 mg PO BID 03/24/18 Acetaminophen [Tylenol Tablet] 650 mg PO Q6H PRN PRN tablet 04/01/18 Melatonin 10 mg PO QHS PRN PRN tablet 04/01/18 Aspirin [Aspirin, Baby] 81 mg PO DAILY@0800 05/22/18 Atorvastatin Calcium [Lipitor] 40 mg PO QHS 05/22/18 Dulaglutide [Trulicity] 1.5 mg SQ QWEEK 05/22/18 Insulin Glargine [Lantus SoloStar 22 units SC DAILY 05/22/18 Pen] Insulin Lispro [Humalog KwikPen] See Protocol SQ 4X/DAY 05/22/18 Warfarin [Coumadin] 5 mg PO DAILY 05/22/18 Surgical History: - - Repair of a thoracic aortic aneurysm and aortic valve repair in 2006. Patient also had an MRSA infection in his abdomen before and had quite extensive debridement. Smoking Status: Never smoker - *Family History Maternal History Items: Heart Disease Patient Problems: Active and Suspected Problems Wound dehiscence (Acute) Objective: patient is alert and orientated x 3. he does not appear to be in any distress vascular: DP and Pt pulses are palpable to right lower extremity. CFT is brisk. skin temperature is warm to warm. Derm: there is full thickness wound dehiscence to right foot. there is blood collection from earlier debridement. no purulence is expressed. wound measures 1.4 cm x 1.0 cm x 1.6 cm depth. there is probe to bone. distal and proximal incision has healed. MS: there right hallux amputation. there is no calf pain present. - Physical Exam Vital Signs Temp Pulse Resp BP Pulse Ox 98.1 F 88 16 126/94 H 96 05/22/18 17:59 05/22/18 17:59 05/22/18 17:59 05/22/18 17:59 05/22/18 17:59 Oxygen Delivery Method Room Air Weight: 120.65 kg Body Mass Index (BMI) 35.1 Finger Stick Blood Glucose 165 Intake and Output for Last 24 Hours 05/20/18 05/21/18 05/22/18 23:59 23:59 23:59 Intake Total 350 / 350 Balance 350 / 350 Laboratory Tests Past 24 Hrs 05/22/18 05/22/18 05/22/18 13:51 13:51 13:51 WBC 8.9 RBC 4.14 L Hgb 11.1 L Hct 35.0 L MCV 84.5 MCH 26.8 L MCHC 31.7 L RDW 14.3 RDW Differential 44.2 H Plt Count 229 MPV 8.8 Immature Gran % (Auto) 0.400 Neut % (Auto) 73.0 H Lymph % (Auto) 15.[address] [place] % (Auto) 7.3 Eos % (Auto) 3.6 Baso % (Auto) 0.2 Absolute Neuts (auto) 6.5 Absolute Lymphs (auto) 1.38 Total Counted Not Reportable PT 31.9 H INR 3.1 Sodium 141 Potassium 4.9 Chloride 106 Carbon Dioxide 28.0 Anion Gap 7 BUN 20 H Creatinine 1.11 Estim Creat Clear Calc 69.98 Est GFR (MDRD) Af Amer 84 Est GFR (MDRD) Non-Af 70 BUN/Creatinine Ratio 18.0 Glucose 128 H Calcium 8.7 Magnesium 1.6 Total Bilirubin 0.40 AST 6 L ALT 18 Alkaline Phosphatase 97 Total Protein 6.8 Albumin 3.0 L Globulin 3.8 Albumin/Globulin Ratio 0.8 L MRSA (PCR) 05/22/18 14:15 WBC RBC Hgb Hct MCV MCH MCHC RDW RDW Differential Plt Count MPV Immature Gran % (Auto) Neut % (Auto) Lymph % (Auto) [place] % (Auto) Eos % (Auto) Baso % (Auto) Absolute Neuts (auto) Absolute Lymphs (auto) Total Counted PT INR Sodium Potassium Chloride Carbon Dioxide Anion Gap BUN Creatinine Estim Creat Clear Calc Est GFR (MDRD) Af Amer Est GFR (MDRD) Non-Af BUN/Creatinine Ratio Glucose Calcium Magnesium Total Bilirubin AST ALT Alkaline Phosphatase Total Protein Albumin Globulin Albumin/Globulin Ratio MRSA (PCR) Negative POC Glucose 05/22/18 16:35 POC Glucose 104 Assessment/Plan All Active Problems Severe sepsis (Resolved) Wound dehiscence (Acute) Vertigo (Resolved) Cough (Resolved) (dyspnea on exertion) (Resolved) H/O aortic valve repair (Resolved) H/O thoracic aortic aneurysm repair (Resolved) Nausea (Resolved) PAF (paroxysmal atrial fibrillation) (Resolved) Patient was examined at bedside. he is s/p amputation of right hallux complicated by wound dehiscence due to persistent post-op drainage. He has tried wound vac but has not shown any progress. He had attempted delayed closure 2 weeks ago but this has resulted in wound dehiscence. today in my clinic I discussed options not limited to wound vac therapy and hyperbarics vs further bone resection and closure of wound. patient would like to try and resect more bone and try to achieve closure. I informed patient that there is no guarantee that resecting further bone will result in closure but on exam, wound edges do appear to approximate so I suspect if the head of 1st metatarsal is resected, I foresee the ability to close this wound without any tension. I would not try to close again with metatarsal head present as he has already had this performed and resulted in dehiscence so I feel that further bone resection is necessary in order to try this treatment option. Patient is admitted for planned procedure. He understands that further bone resection has potential risks not limited to infection, pain, swelling, bleeding, wound dehiscence, inability to achieve wound closure prompting use of wound vac, further foot amputation, osteomyelitis, cardiac arrest, dvt, . Patient fully understands that following this procedure, i will have him limit walking as any excessive walking can risk complications noted above. I will plan on performing first metatarsal head resection once INR is optimized for surgery. I feel his INR is too high to perform any surgery and if surgery is performed now, likely hematoma is potential risk. Debridement was performed in office prior to admission. there is small blood collection. wound was packed with surgicel. will recheck hemoglobin this evening. Patient scheduled for mri for evaluation of right foot to r/o osteomyelitis of 1st metatarsal, possible abscess vs space infection. patient informed that MRI possible for hematoma given recent debridement. I have consulted id to assist in treatment options post-op pending cultures. will continue to follow. will plan for surgery once INR optimal for surgery, possibly 1.7 or less. will discuss with hospitalist tomorrow.
[2018-05-22 18:17] LABS: Bacteria 0 SEEN /hpf (None Seen); Mucous, Urine 0 SEEN /hpf (<or=2+); Red Blood Cells-Urine 0 SEEN /hpf (0-5)
[2018-05-22 18:31] LABS: Glucose, Dipstick Normal (Normal); Ketone-Dipstick Negative (Negative); Leukocyte Esterase-Dipstick 25 /ul (Negative); Nitrite-Dipstick Negative (Negative); Occult Blood-Urine 25 /ul (Negative); Protein-Dipstick 30 mg/dl (Negative); Specific Gravity, Urine 1.015 (1.002-1.030); Urine Bilirubin Dipstick Negative (Negative); Urine Urobilinogen 1 mg/dl (Normal); Urine pH 6.5 (5.0 - 8.0)
[2018-05-22 18:46] LABS: Color, Urine Yellow (Yellow); Urine Clarity Clear (Clear)
[2018-05-22 18:48] LABS: Squamous Epithelial Cells - UA 0-5 SEEN /hpf (0-5); White Blood Cells 0-5 SEEN /hpf (0-5)
[2018-05-22 21:50] VITALS: BP 170/85; PULSE 79; RESP 18; TEMP 37.1; O2SAT 94
[2018-05-22] MEDS: Senna/Docusate Sodium 1 Tablet 2 TABLET PO (21:58)
[2018-05-22] MEDS: Atorvastatin Calcium 40 MG Tablet PO (21:58)
[2018-05-22] MEDS: Famotidine 20 MG Tablet PO (21:58)
[2018-05-22 22:17] LABS: Hematocrit 34.2 % (40-54); Hemoglobin 10.8 g/dl (13.0-16.5)
[2018-05-22 22:29] VITALS: RESP 14; O2SAT 96
[2018-05-22 22:36] LABS: Bedside Glucose 134 mg/dL (70-110)
--- NOTE | 2018-05-22 23:28 | NURSING ---
daughter asked for propofol to be added in allergy list d/t combativeness following sx.
[2018-05-23 02:40] VITALS: BP 160/86; PULSE 78; RESP 16; TEMP 37; O2SAT 96
[2018-05-23] MEDS: Losartan Potassium 100 MG Tablet PO (05:57)
[2018-05-23 06:44] VITALS: BP 146/87; PULSE 79; RESP 16; TEMP 36.9; O2SAT 95
[2018-05-23] MEDS: Insulin Lispro 100 UNIT/ML INSULN.PEN SQ ×4 (06:46→22:51)
[2018-05-23 06:56] LABS: Bedside Glucose 166 mg/dL (70-110)
[2018-05-23 06:57] LABS: Absolute Lymphocyte Count 1.83 X10^3/ul (0.83-4.51); Absolute Neutrophil Count 7.4 X10^3/uL (2.0-7.7); Basophil# 0.02 X10^3/uL; Basophil% 0.2 % (0-1); Eosinophil# 0.37 X10^3/uL; Eosinophils% 3.5 % (0-5); Hematocrit 35.1 % (40-54); Hemoglobin 11.4 g/dl (13.0-16.5); Lymphocyte # 1.83 X10^3/ul (4.0); Lymphocyte % 17.3 % (19-41); Mean Corp Hgb Conc 32.5 g/gl (32-36); Mean Corpuscular Hgb 27.1 pg (27.0-32.0); Mean Corpuscular Volume 83.6 fL (80-94); Monocyte# 0.87 X10^3/uL; Monocyte% 8.2 % (0-10); Neutrophil # 7.43 X10^3/uL (2.7-7.7); Neutrophil % 70.2 % (47-70); Platelet Count 278 K/mm3 (150-450); RBC Distribution Width CV 14.1 % (11.6-14.6); RBC Distribution Width SD 41.8 fl (35.1-43.9); White Blood Count 10.6 K/mm3 (4.4-11.0)
[2018-05-23 07:00] LABS: POSITIVE COUNT NO; POSITIVE DIFFERENTIAL NO; POSITIVE MORPHOLOGY NO
[2018-05-23 07:07] LABS: International Normalized Ratio 2.6; Prothrombin Time (Protime)PT. 27.9 SECONDS (11.7-14.9)
[2018-05-23 07:10] LABS: Anion Gap 11 (5-15); BUN 18 mg/dL (7-18); BUN/Creat Ratio 15.7 RATIO (10-20); Calcium,Total 9.1 mg/dL (8.5-10.1); Chloride 103 mmol/L (98-107); Creatinine, Serum 1.15 mg/dL (0.70-1.30); EST Glomerular Filtration Rate 67 mL/min (>60); Est Glom Filt Rate - Afr Amer 81 mL/min (>60); Estimated Creatinine Clearance 67.55 ml/min; Glucose 151 mg/dL (74-106); Potassium 4.1 mmol/L (3.5-5.1); Sodium Level 138 mmol/L (136-145)
[2018-05-23 08:50] VITALS: PULSE 79
[2018-05-23] MEDS: Senna/Docusate Sodium 1 Tablet 2 TABLET PO ×2 (08:50→22:53)
[2018-05-23] MEDS: Metoprolol(XL)Succ 200 MG Tablet PO (08:50)
[2018-05-23] MEDS: Aspirin 81 MG TAB.CHEW PO (08:50)
[2018-05-23] MEDS: Famotidine 20 MG Tablet PO ×2 (08:50→22:52)
[2018-05-23] MEDS: Glucerna Shake 120 ML LIQUID PO ×4 (08:53→22:48)
--- NOTE | 2018-05-23 09:57 | PCM.PN.HOSP ---
Patient Problems: Active and Suspected Problems Wound dehiscence (Acute) Subjective: Patient seen, he wanted to make sure propofol was added to his list of adverse drug reactions/allergies. Awaiting input from podiatry 06/01/2018; MRI obtained the day prior demonstrated findings consistent with osteomyelitis of the first metatarsal head. 2. Suspected abscess distal to the first metatarsal head. Initiated cefazolin based on previous culture results Objective: GENERAL: cooperative HEENT: Atraumatic; moist oral mucosa EYES; Anicteric, Normal Conjunctiva NECK; supple, normal thyroid, no distended JVD. RESPIRATORY: Diminished to auscultation bilaterally, CARDIOVASCULAR: Regular S1 S2, no audible murmurs GI: soft, non-tender, normoactive bowel sounds, : No Renal angle tenderness; EXTREMITIES: Bleeding from her right hallux stump MUSCULOSKELETAL: No Joint Tenderness; no muscle waisting NEURO: Awake; no lateralizing signs. SKIN: No Rash PSYCH; Normal affect Vitals/I&O's: Vital Signs Temp Pulse Resp BP Pulse Ox 98.4 F 79 16 146/87 H 95 05/23/18 06:44 05/23/18 08:50 05/23/18 06:44 05/23/18 06:44 05/23/18 06:44 Oxygen Delivery Method Room Air Weight: 120.65 kg Body Mass Index (BMI) 35.1 Finger Stick Blood Glucose 165 Intake and Output for Last 24 Hours 05/21/18 05/22/18 05/23/18 23:59 23:59 23:59 Intake Total 350 / 350 720 / 720 Balance 350 / 350 720 / 720 Laboratory Results 05/22/18 13:51: WBC 8.9, RBC 4.14 L, Hgb 11.1 L, Hct 35.0 L, MCV 84.5, MCH 26.8 L, MCHC 31.7 L, RDW 14.3, RDW Differential 44.2 H, Plt Count 229, MPV 8.8, Immature Gran % (Auto) 0.400, Neut % (Auto) 73.0 H, Lymph % (Auto) 15.5 L, Jay % (Auto) 7.3, Eos % (Auto) 3.6, Baso % (Auto) 0.2, Absolute Neuts (auto) 6.5, Absolute Lymphs (auto) 1.38, Total Counted Not Reportable 05/22/18 13:51: Sodium 141, Potassium 4.9, Chloride 106, Carbon Dioxide 28.0, Anion Gap 7, BUN 20 H, Creatinine 1.11, Estim Creat Clear Calc 69.98, Est GFR (MDRD) Af Amer 84, Est GFR (MDRD) Non-Af 70, BUN/Creatinine Ratio 18.0, Glucose 128 H, Calcium 8.7, Magnesium 1.6, Total Bilirubin 0.40, AST 6 L, ALT 18, Alkaline Phosphatase 97, Total Protein 6.8, Albumin 3.0 L, Globulin 3.8, Albumin/Globulin Ratio 0.8 L 05/22/18 13:51: PT 31.9 H, INR 3.1 05/22/18 14:15: MRSA (PCR) Negative 05/22/18 16:35: POC Glucose 104 05/22/18 17:59: Urine Color Yellow, Urine Clarity Clear, Urine pH 6.5, Ur Specific [place] 1.015, Urine Protein 30 H, Urine Glucose (UA) Normal, Urine Ketones Negative, Urine Occult Blood 25 H, Urine Nitrite Negative, Urine Bilirubin Negative, Urine Urobilinogen 1 H, Ur Leukocyte Esterase 25 H, Urine RBC 0 SEEN, Urine WBC 0-5 SEEN, Ur Squamous Epith Cells 0-5 SEEN, Urine Bacteria 0 SEEN, Urine Mucus 0 SEEN 05/22/18 21:57: POC Glucose 134 H 05/22/18 22:10: Hgb 10.8 L, Hct 34.2 L 05/23/18 06:36: WBC 10.6, RBC 4.20 L, Hgb 11.4 L, Hct 35.1 L, MCV 83.6, MCH 27.1, MCHC 32.5, RDW 14.1, RDW Differential 41.8, Plt Count 278, MPV 9.0, Immature Gran % (Auto) 0.600, Neut % (Auto) 70.2 H, Lymph % (Auto) 17.3 L, Jay % (Auto) 8.2, Eos % (Auto) 3.5, Baso % (Auto) 0.2, Absolute Neuts (auto) 7.4, Absolute Lymphs (auto) 1.83, Total Counted Not Reportable 05/23/18 06:36: Sodium 138, Potassium 4.1, Chloride 103, Carbon Dioxide 24.0, Anion Gap 11, BUN 18, Creatinine 1.15, Estim Creat Clear Calc 67.55, Est GFR (MDRD) Af Amer 81, Est GFR (MDRD) Non-Af 67, BUN/Creatinine Ratio 15.7, Glucose 151 H, Calcium 9.1 05/23/18 06:36: PT 27.9 H, INR 2.6 05/23/18 06:42: POC Glucose 166 H Current Medications Acetaminophen (Tylenol) 650 mg PO Q6H PRN PRN PRN Reason: Mild Pain (scale 0-3)/T>100.7 Al Hydroxide/Mg Hydroxide (Mylanta Ii) 30 ml PO Q6H PRN PRN PRN Reason: Gastric burning Aspirin (Aspirin, Baby) 81 mg PO DAILY@0800 [facility] Last Admin: 05/23/18 08:50 Dose: 81 mg Atorvastatin Calcium (Lipitor) 40 mg PO QHS [facility] Last Admin: 05/22/18 21:58 Dose: 40 mg Dextrose (D50w Syringe) 0 gm IV X1 PRN; Protocol PRN Reason: Hypoglycemia Famotidine (Pepcid) 20 mg PO BID [facility] Last Admin: 05/23/18 08:50 Dose: 20 mg Glucagon () 1 mg IM .X1 PRN PRN Reason: Hypoglycemia Insulin Glargine (Lantus (Bkc)) 22 units SC DAILY [facility] Last Admin: 05/23/18 08:51 Dose: 22 units Insulin Human Lispro (Humalog Kwikpen (Bkc)) 0 unit SQ ACHS [facility]; Protocol Last Admin: 05/23/18 06:46 Dose: 2 u Losartan Potassium (Cozaar) 100 mg PO DAILY [facility] Last Admin: 05/23/18 05:57 Dose: 100 mg Magnesium Hydroxide (Milk Of Magnesia) 30 ml PO DAILY PRN PRN PRN Reason: Constipation Melatonin (Melatonin) 10 mg PO QHS PRN PRN PRN Reason: INSOMNIA Metoprolol Succinate (Toprol Xl (Beta Red)) 200 mg PO DAILY [facility] Last Admin: 05/23/18 08:50 Dose: 200 mg Nutritional Formula (Lactose Free) (Glucerna Shake) 120 ml PO 4X/DAY [facility] Last Admin: 05/23/18 08:53 Dose: 120 ml Ondansetron HCl (Zofran) 4 mg IV Q8H PRN PRN PRN Reason: NAUSEA Promethazine HCl (Phenergan) 12.5 mg IV Q6H PRN PRN PRN Reason: NAUSEA/VOMITING Psyllium Hydrophilic Mucilloid (Metamucil) 1 packet PO DAILY PRN PRN PRN Reason: CONSTIPATION Senna/Docusate Sodium (Senokot-S, Renetta-Colace) 2 tablet PO BID [facility] Last Admin: 05/23/18 08:50 Dose: 2 tablet Sodium Chloride () 5 - 30 ml IV UD PRN PRN Reason: SALINE FLUSH Last Admin: 05/22/18 21:59 Dose: 10 ml Zolpidem Tartrate (Ambien (Generic)) 5 mg PO QHS PRN PRN PRN Reason: INSOMNIA Medical Necessity - Tobacco Use Smoking Status: Never smoker Assessment/Plan All Active Problems Severe sepsis (Resolved) Wound dehiscence (Acute) Vertigo (Resolved) Cough (Resolved) (dyspnea on exertion) (Resolved) H/O aortic valve repair (Resolved) H/O thoracic aortic aneurysm repair (Resolved) Nausea (Resolved) PAF (paroxysmal atrial fibrillation) (Resolved) Patient is a 72-year-old gentleman with multiple comorbidities including recent admission for diabetic foot infection with osteomyelitis involving the right hallux for which he underwent amputation. Hospital stay was apparently complicated by wound with MSSA patient presents with wound dehiscence 1. Wound dehiscence involving the stump of the right big toe for which patient underwent amputation as a result of osteomyelitis with MSSA. Patient has been admitted to regular nursing floor. Cultures were sent on admission. Held off initiating antibiotics. Consultation was placed to podiatry Dr. Obregon as well as Dr. Leija infectious disease. MRI obtained demonstrated Findings consistent with osteomyelitis of the first metatarsal head. Suspected abscess distal to the first metatarsal head. Did initiate cefazolin based on patient previous culture results pending review by infectious 2. 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 Patient oral hypoglycemic agents held did initiate long-acting insulin with sliding scale coverage 3. History of aortic aneurysm status post repair 4. History of aortic valvuloplasty 5. Essential hypertension did continue patient home medications with plans to adjust doses if needed 6. Dyslipidemia 7. History of previous pulmonary embolism patient is on systemic anticoagulation with Coumadin INR is therapeutic 8. DVT prophylaxis already on Coumadin no need for additional measures Active Medications Acetaminophen (Tylenol) 650 mg PO Q6H PRN PRN PRN Reason: Mild Pain (scale 0-3)/T>100.7 Al Hydroxide/Mg Hydroxide (Mylanta Ii) 30 ml PO Q6H PRN PRN PRN Reason: Gastric burning Aspirin (Aspirin, Baby) 81 mg PO DAILY@0800 [facility] Last Admin: 05/23/18 08:50 Dose: 81 mg Atorvastatin Calcium (Lipitor) 40 mg PO QHS [facility] Last Admin: 05/22/18 21:58 Dose: 40 mg Dextrose (D50w Syringe) 0 gm IV X1 PRN; Protocol PRN Reason: Hypoglycemia Famotidine (Pepcid) 20 mg PO BID [facility] Last Admin: 05/23/18 08:50 Dose: 20 mg Glucagon () 1 mg IM .X1 PRN PRN Reason: Hypoglycemia Insulin Glargine (Lantus (Bkc)) 22 units SC DAILY [facility] Last Admin: 05/23/18 08:51 Dose: 22 units Insulin Human Lispro (Humalog Kwikpen (Bk)) 0 unit SQ ACHS [facility]; Protocol Last Admin: 05/23/18 06:46 Dose: 2 u Losartan Potassium (Cozaar) 100 mg PO DAILY [facility] Last Admin: 05/23/18 05:57 Dose: 100 mg Magnesium Hydroxide (Milk Of Magnesia) 30 ml PO DAILY PRN PRN PRN Reason: Constipation Melatonin (Melatonin) 10 mg PO QHS PRN PRN PRN Reason: INSOMNIA Metoprolol Succinate (Toprol Xl (Beta Red)) 200 mg PO DAILY [facility] Last Admin: 05/23/18 08:50 Dose: 200 mg Nutritional Formula (Lactose Free) (Glucerna Shake) 120 ml PO 4X/DAY [facility] Last Admin: 05/23/18 08:53 Dose: 120 ml Ondansetron HCl (Zofran) 4 mg IV Q8H PRN PRN PRN Reason: NAUSEA Promethazine HCl (Phenergan) 12.5 mg IV Q6H PRN PRN PRN Reason: NAUSEA/VOMITING Psyllium Hydrophilic Mucilloid (Metamucil) 1 packet PO DAILY PRN PRN PRN Reason: CONSTIPATION Senna/Docusate Sodium (Senokot-S, Renetta-Colace) 2 tablet PO BID [facility] Last Admin: 05/23/18 08:50 Dose: 2 tablet Sodium Chloride () 5 - 30 ml IV UD PRN PRN Reason: SALINE FLUSH Last Admin: 05/22/18 21:59 Dose: 10 ml Zolpidem Tartrate (Ambien (Generic)) 5 mg PO QHS PRN PRN PRN Reason: INSOMNIA Clinical Impression(s) from Imaging Studies Lower Extremity MRI 05/22/18 14:38 IMPRESSION: 1. Findings consistent with osteomyelitis of the first metatarsal head. 2. Suspected abscess distal to the first metatarsal head. Electronically Signed: Mila Russell MD at 21:00 EST Tel , Service support , Code Visit Inpatient E&M: 09497 Subs Hosp L3
--- NOTE | 2018-05-23 10:03 | PN_ITS ---
Patient Problems: Active and Suspected Problems Wound dehiscence (Acute) Subjective: Patient seen, he wanted to make sure propofol was added to his list of adverse drug reactions/allergies. Awaiting input from podiatry 06/01/2018; MRI obtained the day prior demonstrated findings consistent with osteomyelitis of the first metatarsal head. 2. Suspected abscess distal to the first metatarsal head. Initiated cefazolin based on previous culture results Objective: GENERAL: cooperative HEENT: Atraumatic; moist oral mucosa EYES; Anicteric, Normal Conjunctiva NECK; supple, normal thyroid, no distended JVD. RESPIRATORY: Diminished to auscultation bilaterally, CARDIOVASCULAR: Regular S1 S2, no audible murmurs GI: soft, non-tender, normoactive bowel sounds, : No Renal angle tenderness; EXTREMITIES: Bleeding from her right hallux stump MUSCULOSKELETAL: No Joint Tenderness; no muscle waisting NEURO: Awake; no lateralizing signs. SKIN: No Rash PSYCH; Normal affect Vitals/I&O's: Vital Signs Temp Pulse Resp BP Pulse Ox 98.4 F 79 16 146/87 H 95 05/23/18 06:44 05/23/18 08:50 05/23/18 06:44 05/23/18 06:44 05/23/18 06:44 Oxygen Delivery Method Room Air Weight: 120.65 kg Body Mass Index (BMI) 35.1 Finger Stick Blood Glucose 165 Intake and Output for Last 24 Hours 05/21/18 05/22/18 05/23/18 23:59 23:59 23:59 Intake Total 350 / 350 720 / 720 Balance 350 / 350 720 / 720 Laboratory Results 05/22/18 13:51: WBC 8.9, RBC 4.14 L, Hgb 11.1 L, Hct 35.0 L, MCV 84.5, MCH 26.8 L, MCHC 31.7 L, RDW 14.3, RDW Differential 44.2 H, Plt Count 229, MPV 8.8, Immature Gran % (Auto) 0.400, Neut % (Auto) 73.0 H, Lymph % (Auto) 15.5 L, [place] % (Auto) 7.3, Eos % (Auto) 3.6, Baso % (Auto) 0.2, Absolute Neuts (auto) 6.5, Absolute Lymphs (auto) 1.38, Total Counted Not Reportable 05/22/18 13:51: Sodium 141, Potassium 4.9, Chloride 106, Carbon Dioxide 28.0, Anion Gap 7, BUN 20 H, Creatinine 1.11, Estim Creat Clear Calc 69.98, Est GFR (MDRD) Af Amer 84, Est GFR (MDRD) Non-Af 70, BUN/Creatinine Ratio 18.0, Glucose 128 H, Calcium 8.7, Magnesium 1.6, Total Bilirubin 0.40, AST 6 L, ALT 18, Alkaline Phosphatase 97, Total Protein 6.8, Albumin 3.0 L, Globulin 3.8, Albumin/Globulin Ratio 0.8 L 05/22/18 13:51: PT 31.9 H, INR 3.1 05/22/18 14:15: MRSA (PCR) Negative 05/22/18 16:35: POC Glucose 104 05/22/18 17:59: Urine Color Yellow, Urine Clarity Clear, Urine pH 6.5, Ur Specific [place] 1.015, Urine Protein 30 H, Urine Glucose (UA) Normal, Urine Ketones Negative, Urine Occult Blood 25 H, Urine Nitrite Negative, Urine Bilirubin Negative, Urine Urobilinogen 1 H, Ur Leukocyte Esterase 25 H, Urine RBC 0 SEEN, Urine WBC 0-5 SEEN, Ur Squamous Epith Cells 0-5 SEEN, Urine Bacteria 0 SEEN, Urine Mucus 0 SEEN 05/22/18 21:57: POC Glucose 134 H 05/22/18 22:10: Hgb 10.8 L, Hct 34.2 L 05/23/18 06:36: WBC 10.6, RBC 4.20 L, Hgb 11.4 L, Hct 35.1 L, MCV 83.6, MCH 27.1, MCHC 32.5, RDW 14.1, RDW Differential 41.8, Plt Count 278, MPV 9.0, Immature Gran % (Auto) 0.600, Neut % (Auto) 70.2 H, Lymph % (Auto) 17.3 L, [place] % (Auto) 8.2, Eos % (Auto) 3.5, Baso % (Auto) 0.2, Absolute Neuts (auto) 7.4, Absolute Lymphs (auto) 1.83, Total Counted Not Reportable 05/23/18 06:36: Sodium 138, Potassium 4.1, Chloride 103, Carbon Dioxide 24.0, Anion Gap 11, BUN 18, Creatinine 1.15, Estim Creat Clear Calc 67.55, Est GFR (MDRD) Af Amer 81, Est GFR (MDRD) Non-Af 67, BUN/Creatinine Ratio 15.7, Glucose 151 H, Calcium 9.1 05/23/18 06:36: PT 27.9 H, INR 2.6 05/23/18 06:42: POC Glucose 166 H Current Medications Acetaminophen (Tylenol) 650 mg PO Q6H PRN PRN PRN Reason: Mild Pain (scale 0-3)/T>100.7 Al Hydroxide/Mg Hydroxide (Mylanta Ii) 30 ml PO Q6H PRN PRN PRN Reason: Gastric burning Aspirin (Aspirin, Baby) 81 mg PO DAILY@0800 [facility] Last Admin: 05/23/18 08:50 Dose: 81 mg Atorvastatin Calcium (Lipitor) 40 mg PO QHS [facility] Last Admin: 05/22/18 21:58 Dose: 40 mg Dextrose (D50w Syringe) 0 gm IV X1 PRN; Protocol PRN Reason: Hypoglycemia Famotidine (Pepcid) 20 mg PO BID [facility] Last Admin: 05/23/18 08:50 Dose: 20 mg Glucagon () 1 mg IM .X1 PRN PRN Reason: Hypoglycemia Insulin Glargine (Lantus (Bkc)) 22 units SC DAILY [facility] Last Admin: 05/23/18 08:51 Dose: 22 units Insulin Human Lispro (Humalog Kwikpen (Bkc)) 0 unit SQ ACHS [facility]; Protocol Last Admin: 05/23/18 06:46 Dose: 2 u Losartan Potassium (Cozaar) 100 mg PO DAILY [facility] Last Admin: 05/23/18 05:57 Dose: 100 mg Magnesium Hydroxide (Milk Of Magnesia) 30 ml PO DAILY PRN PRN PRN Reason: Constipation Melatonin (Melatonin) 10 mg PO QHS PRN PRN PRN Reason: INSOMNIA Metoprolol Succinate (Toprol Xl (Beta Red)) 200 mg PO DAILY [facility] Last Admin: 05/23/18 08:50 Dose: 200 mg Nutritional Formula (Lactose Free) (Glucerna Shake) 120 ml PO 4X/DAY [facility] Last Admin: 05/23/18 08:53 Dose: 120 ml Ondansetron HCl (Zofran) 4 mg IV Q8H PRN PRN PRN Reason: NAUSEA Promethazine HCl (Phenergan) 12.5 mg IV Q6H PRN PRN PRN Reason: NAUSEA/VOMITING Psyllium Hydrophilic Mucilloid (Metamucil) 1 packet PO DAILY PRN PRN PRN Reason: CONSTIPATION Senna/Docusate Sodium (Senokot-S, Renetta-Colace) 2 tablet PO BID [facility] Last Admin: 05/23/18 08:50 Dose: 2 tablet Sodium Chloride () 5 - 30 ml IV UD PRN PRN Reason: SALINE FLUSH Last Admin: 05/22/18 21:59 Dose: 10 ml Zolpidem Tartrate (Ambien (Generic)) 5 mg PO QHS PRN PRN PRN Reason: INSOMNIA Medical Necessity - Tobacco Use Smoking Status: Never smoker Assessment/Plan All Active Problems Severe sepsis (Resolved) Wound dehiscence (Acute) Vertigo (Resolved) Cough (Resolved) (dyspnea on exertion) (Resolved) H/O aortic valve repair (Resolved) H/O thoracic aortic aneurysm repair (Resolved) Nausea (Resolved) PAF (paroxysmal atrial fibrillation) (Resolved) Patient is a 72-year-old gentleman with multiple comorbidities including recent admission for diabetic foot infection with osteomyelitis involving the right hallux for which he underwent amputation. Hospital stay was apparently complicated by wound with MSSA patient presents with wound dehiscence 1. Wound dehiscence involving the stump of the right big toe for which patient underwent amputation as a result of osteomyelitis with MSSA. Patient has been admitted to regular nursing floor. Cultures were sent on admission. Held off initiating antibiotics. Consultation was placed to podiatry Dr. Obregon as well as Dr. Leija infectious disease. MRI obtained demonstrated Findings consistent with osteomyelitis of the first metatarsal head. Suspected abscess distal to the first metatarsal head. Did initiate cefazolin based on patient previous culture results pending review by infectious 2. 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 Patient oral hypoglycemic agents held did initiate long-acting insulin with sliding scale coverage 3. History of aortic aneurysm status post repair 4. History of aortic valvuloplasty 5. Essential hypertension did continue patient home medications with plans to adjust doses if needed 6. Dyslipidemia 7. History of previous pulmonary embolism patient is on systemic anticoagulation with Coumadin INR is therapeutic 8. DVT prophylaxis already on Coumadin no need for additional measures Active Medications Acetaminophen (Tylenol) 650 mg PO Q6H PRN PRN PRN Reason: Mild Pain (scale 0-3)/T>100.7 Al Hydroxide/Mg Hydroxide (Mylanta Ii) 30 ml PO Q6H PRN PRN PRN Reason: Gastric burning Aspirin (Aspirin, Baby) 81 mg PO DAILY@0800 [facility] Last Admin: 05/23/18 08:50 Dose: 81 mg Atorvastatin Calcium (Lipitor) 40 mg PO QHS [facility] Last Admin: 05/22/18 21:58 Dose: 40 mg Dextrose (D50w Syringe) 0 gm IV X1 PRN; Protocol PRN Reason: Hypoglycemia Famotidine (Pepcid) 20 mg PO BID [facility] Last Admin: 05/23/18 08:50 Dose: 20 mg Glucagon () 1 mg IM .X1 PRN PRN Reason: Hypoglycemia Insulin Glargine (Lantus (Bkc)) 22 units SC DAILY [facility] Last Admin: 05/23/18 08:51 Dose: 22 units Insulin Human Lispro (Humalog Kwikpen (Bk)) 0 unit SQ ACHS [facility]; Protocol Last Admin: 05/23/18 06:46 Dose: 2 u Losartan Potassium (Cozaar) 100 mg PO DAILY [facility] Last Admin: 05/23/18 05:57 Dose: 100 mg Magnesium Hydroxide (Milk Of Magnesia) 30 ml PO DAILY PRN PRN PRN Reason: Constipation Melatonin (Melatonin) 10 mg PO QHS PRN PRN PRN Reason: INSOMNIA Metoprolol Succinate (Toprol Xl (Beta Red)) 200 mg PO DAILY [facility] Last Admin: 05/23/18 08:50 Dose: 200 mg Nutritional Formula (Lactose Free) (Glucerna Shake) 120 ml PO 4X/DAY [facility] Last Admin: 05/23/18 08:53 Dose: 120 ml Ondansetron HCl (Zofran) 4 mg IV Q8H PRN PRN PRN Reason: NAUSEA Promethazine HCl (Phenergan) 12.5 mg IV Q6H PRN PRN PRN Reason: NAUSEA/VOMITING Psyllium Hydrophilic Mucilloid (Metamucil) 1 packet PO DAILY PRN PRN PRN Reason: CONSTIPATION Senna/Docusate Sodium (Senokot-S, Renetta-Colace) 2 tablet PO BID [facility] Last Admin: 05/23/18 08:50 Dose: 2 tablet Sodium Chloride () 5 - 30 ml IV UD PRN PRN Reason: SALINE FLUSH Last Admin: 05/22/18 21:59 Dose: 10 ml Zolpidem Tartrate (Ambien (Generic)) 5 mg PO QHS PRN PRN PRN Reason: INSOMNIA Clinical Impression(s) from Imaging Studies Lower Extremity MRI 05/22/18 14:38 IMPRESSION: 1. Findings consistent with osteomyelitis of the first metatarsal head. 2. Suspected abscess distal to the first metatarsal head. Electronically Signed: Mila Russell MD at 21:00 EST Tel , Service support , Code Visit Inpatient E&M: [id number] Subs Hosp L3
--- NOTE | 2018-05-23 10:22 | CASEMGMT ---
JACEY MASON INITIAL ASSESSMENT D/C PLAN: Home w/resumption of C @ [facility] HHC: Correction. Add PT/OT to eval and treat Face to Face with patient for initial transition planning/care coordination assessment. JACEY MASON introduced self and role at [facility]. Care providers, pharmacy, and demographics verified. PCP: Chidi Christian Specialists: Edyta Mahmood Pharmacy: [facility] Insurance: [facility], [employer] Prescription Benefit: Yes Living Will/HPOA: Has both LW and HPOA, who is his , Lorena. Both LW and HPOA found on e-chart. LNOK: , Lorena Living Arrangements: Lives with in a 2-story home. 3 steps to enter. 1 flight upstairs to bathroom. States able to navigate stairs well. Pt states he does his own personal ADL's. 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 Transportation: Pt and DME: Has cane that he uses on occasion when he wears his boot cover. Has a walker available but does not currently use it. States also has access to a wheelchair if he needs one. Denies having other DME needs. HHC: [facility] currently has [facility][note 3] in [place], [place]. Call placed to [facility][note 3]. They confirmed pt is current with them for jail for wound care. [facility][note 3] state they are able to do wound vac care and IV antibiotics if pt would need either of these on discharge. Resumption of [facility] order placed. has been changing pt's wound dressing on days C does not come out to the home and pt states she would be willing/able to learn IV antibiotic administration if pt is d/c'd with IV antibiotics. [facility][note 3]: P: [phone] F: [phone]. SNF: Pt was previously at [facility] and was just discharged home from there on 05/08/18. Pt states does not feel he needs SNF upon discharge. Pt wishes to return home w/resumption of [facility][note 3]. CM to follow for any further discharge planning needs that arise. Elena GUEVARA RN, CM
[2018-05-23 10:54] VITALS: O2SAT 95
[2018-05-23 11:16] LABS: Bedside Glucose 179 mg/dL (70-110)
--- NOTE | 2018-05-23 12:08 | PCM.HP.ID ---
Problem List (1) Osteomyelitis Status: Chronic Qualifiers: Osteomyelitis type: unspecified type Osteomyelitis location: foot Laterality: right Qualified Code(s): M86.9 - Osteomyelitis, unspecified Comment: right first toe Reason for Consult: osteo Consulted by: Dr. Obregon History of Present Illness: The patient is a 72 year old M who presented 03/2018 with severe sepsis (fever, leukocytosis, ANTHONY, lactic acidosis) due to MSSA bacteremia from R 1st toe osteo - MRI with ? involvement of 1st phalanx. Taken for toe amp by Dr. Obregon 03/25. Discharged on 6 weeks of iv abx at discharge to cover for likely residual osteo and possible endocarditis with q8h cefazolin, stop date 05/07/18. Completed abx, picc removed, had maximo removed and developed some bloody drainage and pain. No fever or chills. MRI 05/22 showed osteo and possible abscess at surgical site. Full ROS performed and neg except as noted above. 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) DM II (diabetes mellitus, type II), controlled (Chronic) Pulmonary emboli (Chronic) HTN (hypertension) (Chronic) Allergies/Adverse Reactions: Allergies propofol Adverse Reaction (Verified 05/22/18 23:27) Other Home Medications: Ambulatory Orders Medication Instructions Recorded Metoprolol(XL)Succ [Toprol Xl 200 mg PO DAILY 09/16/13 (Beta Red)] Losartan Potassium 50 mg PO DAILY 03/24/18 Metformin HCl [Metformin HCl ER] 1,000 mg PO BID 03/24/18 Acetaminophen [Tylenol Tablet] 650 mg PO Q6H PRN PRN tablet 04/01/18 Melatonin 10 mg PO QHS PRN PRN tablet 04/01/18 Aspirin [Aspirin, Baby] 81 mg PO DAILY@0800 05/22/18 Atorvastatin Calcium [Lipitor] 40 mg PO QHS 05/22/18 Dulaglutide [Trulicity] 1.5 mg SQ QWEEK 05/22/18 Insulin Glargine [Lantus SoloStar 22 units SC DAILY 05/22/18 Pen] Insulin Lispro [Humalog KwikPen] See Protocol SQ 4X/DAY 05/22/18 Warfarin [Coumadin] 5 mg PO DAILY 05/22/18 Vital Signs Temp Pulse Resp BP Pulse Ox 98.4 F 79 16 146/87 H 95 05/23/18 06:44 05/23/18 08:50 05/23/18 06:44 05/23/18 06:44 05/23/18 10:54 Oxygen Delivery Method Room Air Weight: 120.65 kg Body Mass Index (BMI) 35.1 Finger Stick Blood Glucose 165 Laboratory Tests Past 24 Hrs 05/22/18 05/22/18 05/22/18 13:51 13:51 13:51 WBC 8.9 RBC 4.14 L Hgb 11.1 L Hct 35.0 L MCV 84.5 MCH 26.8 L MCHC 31.7 L RDW 14.3 RDW Differential 44.2 H Plt Count 229 MPV 8.8 Immature Gran % (Auto) 0.400 Neut % (Auto) 73.0 H Lymph % (Auto) 15.5 L [place] % (Auto) 7.3 Eos % (Auto) 3.6 Baso % (Auto) 0.2 Absolute Neuts (auto) 6.5 Absolute Lymphs (auto) 1.38 Total Counted Not Reportable PT 31.9 H INR 3.1 Sodium 141 Potassium 4.9 Chloride 106 Carbon Dioxide 28.0 Anion Gap 7 BUN 20 H Creatinine 1.11 Estim Creat Clear Calc 69.98 Est GFR (MDRD) Af Amer 84 Est GFR (MDRD) Non-Af 70 BUN/Creatinine Ratio 18.0 Glucose 128 H Calcium 8.7 Magnesium 1.6 Total Bilirubin 0.40 AST 6 L ALT 18 Alkaline Phosphatase 97 Total Protein 6.8 Albumin 3.0 L Globulin 3.8 Albumin/Globulin Ratio 0.8 L Urine Color Urine Clarity Urine pH Ur Specific [place] Urine Protein Urine Glucose (UA) Urine Ketones Urine Occult Blood Urine Nitrite Urine Bilirubin Urine Urobilinogen Ur Leukocyte Esterase Urine RBC Urine WBC Ur Squamous Epith Cells Urine Bacteria Urine Mucus MRSA (PCR) 05/22/18 05/22/18 05/22/18 14:15 17:59 22:10 WBC RBC Hgb 10.8 L Hct 34.2 L MCV MCH MCHC RDW RDW Differential Plt Count MPV Immature Gran % (Auto) Neut % (Auto) Lymph % (Auto) [place] % (Auto) Eos % (Auto) Baso % (Auto) Absolute Neuts (auto) Absolute Lymphs (auto) Total Counted PT INR Sodium Potassium Chloride Carbon Dioxide Anion Gap BUN Creatinine Estim Creat Clear Calc Est GFR (MDRD) Af Amer Est GFR (MDRD) Non-Af BUN/Creatinine Ratio Glucose Calcium Magnesium Total Bilirubin AST ALT Alkaline Phosphatase Total Protein Albumin Globulin Albumin/Globulin Ratio Urine Color Yellow Urine Clarity Clear Urine pH 6.5 Ur Specific [place] 1.015 Urine Protein 30 H Urine Glucose (UA) Normal Urine Ketones Negative Urine Occult Blood 25 H Urine Nitrite Negative Urine Bilirubin Negative Urine Urobilinogen 1 H Ur Leukocyte Esterase 25 H Urine RBC 0 SEEN Urine WBC 0-5 SEEN Ur Squamous Epith Cells 0-5 SEEN Urine Bacteria 0 SEEN Urine Mucus 0 SEEN MRSA (PCR) Negative 05/23/18 05/23/18 05/23/18 06:36 06:36 06:36 WBC 10.6 RBC 4.20 L Hgb 11.4 L Hct 35.1 L MCV 83.6 MCH 27.1 MCHC 32.5 RDW 14.1 RDW Differential 41.8 Plt Count 278 MPV 9.0 Immature Gran % (Auto) 0.600 Neut % (Auto) 70.2 H Lymph % (Auto) 17.3 L [place] % (Auto) 8.2 Eos % (Auto) 3.5 Baso % (Auto) 0.2 Absolute Neuts (auto) 7.4 Absolute Lymphs (auto) 1.83 Total Counted Not Reportable PT 27.9 H INR 2.6 Sodium 138 Potassium 4.1 Chloride 103 Carbon Dioxide 24.0 Anion Gap 11 BUN 18 Creatinine 1.15 Estim Creat Clear Calc 67.55 Est GFR (MDRD) Af Amer 81 Est GFR (MDRD) Non-Af 67 BUN/Creatinine Ratio 15.7 Glucose 151 H Calcium 9.1 Magnesium Total Bilirubin AST ALT Alkaline Phosphatase Total Protein Albumin Globulin Albumin/Globulin Ratio Urine Color Urine Clarity Urine pH Ur Specific [place] Urine Protein Urine Glucose (UA) Urine Ketones Urine Occult Blood Urine Nitrite Urine Bilirubin Urine Urobilinogen Ur Leukocyte Esterase Urine RBC Urine WBC Ur Squamous Epith Cells Urine Bacteria Urine Mucus MRSA (PCR) - Other Studies Radiology: [] reviewed Other Studies: [] Route of nutrition/ use of supplements: [] Nutritional Intake: [] IV Site: [] Rodrigues Catheter: [] - Physical Exam General: Alert, Oriented x3, Cooperative, No apparent distress HEENT: Atraumatic, PERRLA, EOMI Neck: Supple, No Nodes Lungs: Clear to auscultation, Normal air movement Cardiovascular: Regular rate, Regular Rhythm Abdomen: Soft, Non Tender, Non-Distended Extremities: No edema Skin: Ulcer/ Wound - R 1st toe IV Site: Peripheral, without redness Musculoskeletal: No Tenderness to Palpation of Joints or Extremities Neurological: Cranial nerves II-XII grossly intact - Assessment/Plan Antibiotics: [] Assessment/Plan: [] Active and Suspected Problems Wound dehiscence (Acute) R 1st metatarsal MSSA osteo and abscess s/p 03/[address] Obregon. Cefazolin ordered this AM, surgical I&D planned for next 1-2 days. Cxs pending. Will order bcx given his recent associated bacteremia. Will follow, thank you, d/w Dr. Obregon.
[2018-05-23 12:12] VITALS: BP 150/82; PULSE 78; RESP 18; TEMP 36.4; O2SAT 98
--- NOTE | 2018-05-23 14:17 | PN.SURG_ITS ---
Patient Problems: Active and Suspected Problems Wound dehiscence (Acute) Subjective: patient seen at bedside this afternoon. no acute distress. no pain. denies n/v/f/c. Objective: Patient alert and orientated x 3. No acute distress vascular: DP and PT pulses are palpable to right foot. cft is less than 5 seconds. skin temp is warm to warm Derm: there is full thickness ulceration of right medial 1st metatarsal. there is mild serous drainage. no purulence. there is hypergranular tissue present of right foot ulceration. there is + probe to bone of right 1st metatarsal MRI of right foot reviewed. There is findings concerning for osteomyelitis of right 1st metatarsal. there is fluid collection. I suspect this fluid collection is more blood/hematoma vs abscess. - Physical Exam Vital Signs Temp Pulse Resp BP Pulse Ox 97.6 F L 78 18 150/82 H 98 05/23/18 12:12 05/23/18 12:12 05/23/18 12:12 05/23/18 12:12 05/23/18 12:12 Oxygen Delivery Method Room Air Weight: 120.65 kg Body Mass Index (BMI) 35.1 Finger Stick Blood Glucose 165 Intake and Output for Last 24 Hours 05/21/18 05/22/18 05/23/18 23:59 23:59 23:59 Intake Total 350 / 350 1020 / 1020 Balance 350 / 350 1020 / 1020 Laboratory Tests Past 24 Hrs 05/22/18 05/22/18 05/22/18 13:51 13:51 14:15 WBC RBC Hgb Hct MCV MCH MCHC RDW RDW Differential Plt Count MPV Immature Gran % (Auto) Neut % (Auto) Lymph % (Auto) [place] % (Auto) Eos % (Auto) Baso % (Auto) Absolute Neuts (auto) Absolute Lymphs (auto) Total Counted PT 31.9 H INR 3.1 Sodium 141 Potassium 4.9 Chloride 106 Carbon Dioxide 28.0 Anion Gap 7 BUN 20 H Creatinine 1.11 Estim Creat Clear Calc 69.98 Est GFR (MDRD) Af Amer 84 Est GFR (MDRD) Non-Af 70 BUN/Creatinine Ratio 18.0 Glucose 128 H Calcium 8.7 Magnesium 1.6 Total Bilirubin 0.40 AST 6 L ALT 18 Alkaline Phosphatase 97 Total Protein 6.8 Albumin 3.0 L Globulin 3.8 Albumin/Globulin Ratio 0.8 L Urine Color Urine Clarity Urine pH Ur Specific [place] Urine Protein Urine Glucose (UA) Urine Ketones Urine Occult Blood Urine Nitrite Urine Bilirubin Urine Urobilinogen Ur Leukocyte Esterase Urine RBC Urine WBC Ur Squamous Epith Cells Urine Bacteria Urine Mucus MRSA (PCR) Negative 05/22/18 05/22/18 05/23/18 17:59 22:10 06:36 WBC 10.6 RBC 4.20 L Hgb 10.8 L 11.4 L Hct 34.2 L 35.1 L MCV 83.6 MCH 27.1 MCHC 32.5 RDW 14.1 RDW Differential 41.8 Plt Count 278 MPV 9.0 Immature Gran % (Auto) 0.600 Neut % (Auto) 70.2 H Lymph % (Auto) 17.3 L [place] % (Auto) 8.2 Eos % (Auto) 3.5 Baso % (Auto) 0.2 Absolute Neuts (auto) 7.4 Absolute Lymphs (auto) 1.83 Total Counted Not Reportable PT INR Sodium Potassium Chloride Carbon Dioxide Anion Gap BUN Creatinine Estim Creat Clear Calc Est GFR (MDRD) Af Amer Est GFR (MDRD) Non-Af BUN/Creatinine Ratio Glucose Calcium Magnesium Total Bilirubin AST ALT Alkaline Phosphatase Total Protein Albumin Globulin Albumin/Globulin Ratio Urine Color Yellow Urine Clarity Clear Urine pH 6.5 Ur Specific [place] 1.015 Urine Protein 30 H Urine Glucose (UA) Normal Urine Ketones Negative Urine Occult Blood 25 H Urine Nitrite Negative Urine Bilirubin Negative Urine Urobilinogen 1 H Ur Leukocyte Esterase 25 H Urine RBC 0 SEEN Urine WBC 0-5 SEEN Ur Squamous Epith Cells 0-5 SEEN Urine Bacteria 0 SEEN Urine Mucus 0 SEEN MRSA (PCR) 05/23/18 05/23/18 06:36 06:36 WBC RBC Hgb Hct MCV MCH MCHC RDW RDW Differential Plt Count MPV Immature Gran % (Auto) Neut % (Auto) Lymph % (Auto) [place] % (Auto) Eos % (Auto) Baso % (Auto) Absolute Neuts (auto) Absolute Lymphs (auto) Total Counted PT 27.9 H INR 2.6 Sodium 138 Potassium 4.1 Chloride 103 Carbon Dioxide 24.0 Anion Gap 11 BUN 18 Creatinine 1.15 Estim Creat Clear Calc 67.55 Est GFR (MDRD) Af Amer 81 Est GFR (MDRD) Non-Af 67 BUN/Creatinine Ratio 15.7 Glucose 151 H Calcium 9.1 Magnesium Total Bilirubin AST ALT Alkaline Phosphatase Total Protein Albumin Globulin Albumin/Globulin Ratio Urine Color Urine Clarity Urine pH Ur Specific [place] Urine Protein Urine Glucose (UA) Urine Ketones Urine Occult Blood Urine Nitrite Urine Bilirubin Urine Urobilinogen Ur Leukocyte Esterase Urine RBC Urine WBC Ur Squamous Epith Cells Urine Bacteria Urine Mucus MRSA (PCR) POC Glucose 05/23/18 05/23/18 05/22/18 11:10 06:42 21:57 POC Glucose 179 H 166 H 134 H 05/22/18 16:35 POC Glucose 104 Medical Necessity - Tobacco Use Smoking Status: Never smoker Assessment/Plan All Active Problems Severe sepsis (Resolved) Wound dehiscence (Acute) Vertigo (Resolved) Cough (Resolved) (dyspnea on exertion) (Resolved) H/O aortic valve repair (Resolved) H/O thoracic aortic aneurysm repair (Resolved) Nausea (Resolved) PAF (paroxysmal atrial fibrillation) (Resolved) Patient was examined and informed of current findings reviewed mri with findings consistent with osteomyelitis. he has tried wound vac for ulceration. He has tried delayed closure only to result in wound dehiscence. we have discussed hyperbarics vs 1st ray resection. he is now interested in first ray resection. he is clinically stable with no redness or purulence. reviewed mri mri shows findings consistent with osteomyelitis and possible abscess. he has open wound to level of 1st metatarsal head and there is no purulence. suspect these findings are more from residual hematoma from debridement performed yesterday. I discussed surgery with patient. discussed partial 1st ray resection and primary closure vs delayed closure. will base decision on closure on intra-op findings. if tissue quality is poor, will pack open for a few days and perform daily irrigation and close later next week. If tissue intra-operatively appears healthy, consider closure. recommend since his foot does appear stable, perform surgery once INR lowers as I fear if surgery performed with INR too high, risk of bleeding and hematoma is significant risk. patient informed of risks of this procedure not limited to infection, pain, swelling, bleeding, hematoma, wound dehiscence, need for advanced wound care not limited to wound vac vs hyperbarics, further amputation. patient consents to proceed. will plan for surgery possibly tomorrow pending inr.
[2018-05-23] MEDS: 0.9% NaCl Peripheral Flush Adult/Peds IV ×2 (14:45→22:54)
[2018-05-23] MEDS: Cefazolin 1 GM/50 ML BAG IV ×2 (14:46→22:47)
[2018-05-23 16:21] LABS: Bedside Glucose 218 mg/dL (70-110)
[2018-05-23 20:00] VITALS: BP 140/67; PULSE 79; RESP 16; TEMP 37.1; O2SAT 96
[2018-05-23] MEDS: Atorvastatin Calcium 40 MG Tablet PO (22:53)
[2018-05-24] VITALS (8 sets, daily range): BP systolic 129–147; BP diastolic 69–76; PULSE 81–100; RESP 14–18; TEMP 36.7–37.2; O2SAT 94–96
[2018-05-24 01:36] LABS: Bedside Glucose 221 mg/dL (70-110)
--- NOTE | 2018-05-24 05:49 | LEAS ---
Arterial Study - Arterial Study Arterial Study: Bilateral lower extremity noninvasive arterial exam at rest Patient with a right foot ulcer Right lower extremity Right PT and DP ankle-brachial indices at rest are 1.35 and 1.38 respectively. The right posterior tibial and dorsalis pedis waveforms are triphasic Left lower extremity The left PT and DP ankle-brachial indices at rest are 1.4 and 1.41 respectively. The left digital index is 1.01. The left PT and DP Doppler waveforms are triphasic Impression Normal resting bilateral lower extremity ankle-brachial indices and Doppler waveforms Smith Christian M.D., F.A.C.S.
[2018-05-24] MEDS: 0.9% NaCl Peripheral Flush Adult/Peds IV ×6 (05:50→23:18)
[2018-05-24] MEDS: Cefazolin 1 GM/50 ML BAG IV ×3 (05:50→23:19)
[2018-05-24 07:35] LABS: Bedside Glucose 156 mg/dL (70-110)
--- NOTE | 2018-05-24 07:43 | PCM.PN.HOSP ---
Patient Problems: Active and Suspected Problems Wound dehiscence (Acute) Subjective: Patient seen had a relatively uneventful night. Plan is for surgery was an INR falls below 1.8 did initiate cefazolin on 05/23/2018 as a result of findings on MRI which was suspicious for osteomyelitis antibiotic choice based on previous culture results Objective: GENERAL: cooperative HEENT: Atraumatic; moist oral mucosa EYES; Anicteric, Normal Conjunctiva NECK; supple, normal thyroid, no distended JVD. RESPIRATORY: Diminished to auscultation bilaterally, CARDIOVASCULAR: Regular S1 S2, no audible murmurs GI: soft, non-tender, normoactive bowel sounds, : No Renal angle tenderness; EXTREMITIES: Bleeding from her right hallux stump MUSCULOSKELETAL: No Joint Tenderness; no muscle waisting NEURO: Awake; no lateralizing signs. SKIN: No Rash PSYCH; Normal affect Vitals/I&O's: Vital Signs Temp Pulse Resp BP Pulse Ox 99 F 85 16 147/76 H 95 05/24/18 02:03 05/24/18 02:03 05/24/18 02:03 05/24/18 02:03 05/24/18 07:24 Oxygen Delivery Method Room Air Weight: 120.65 kg Body Mass Index (BMI) 35.1 Finger Stick Blood Glucose 165 Intake and Output for Last 24 Hours 05/22/18 05/23/18 05/24/18 23:59 23:59 23:59 Intake Total 350 / 350 1495 / 1495 672 / 672 Balance 350 / 350 1495 / 1495 672 / 672 Laboratory Results 05/23/18 11:10: POC Glucose 179 H 05/23/18 16:11: POC Glucose 218 H 05/23/18 22:50: POC Glucose 221 H 05/24/18 07:32: POC Glucose 156 H Current Medications Acetaminophen (Tylenol) 650 mg PO Q6H PRN PRN PRN Reason: Mild Pain (scale 0-3)/T>100.7 Al Hydroxide/Mg Hydroxide (Mylanta Ii) 30 ml PO Q6H PRN PRN PRN Reason: Gastric burning Aspirin (Aspirin, Baby) 81 mg PO DAILY@0800 [facility] Last Admin: 05/23/18 08:50 Dose: 81 mg Atorvastatin Calcium (Lipitor) 40 mg PO QHS [facility] Last Admin: 05/23/18 22:53 Dose: 40 mg Dextrose (D50w Syringe) 0 gm IV X1 PRN; Protocol PRN Reason: Hypoglycemia Famotidine (Pepcid) 20 mg PO BID [facility] Last Admin: 05/23/18 22:52 Dose: 20 mg Glucagon () 1 mg IM .X1 PRN PRN Reason: Hypoglycemia Cefazolin Sodium () 1 gm in 50 mls @ 100 mls/hr IV Q8 [facility] Last Admin: 05/24/18 05:50 Dose: 100 mls/hr Insulin Glargine (Lantus (Bkc)) 22 units SC DAILY [facility] Last Admin: 05/23/18 08:51 Dose: 22 units Insulin Human Lispro (Humalog Kwikpen (Bk)) 0 unit SQ ACHS [facility]; Protocol Last Admin: 05/23/18 22:51 Dose: 4 units Losartan Potassium (Cozaar) 100 mg PO DAILY [facility] Last Admin: 05/23/18 05:57 Dose: 100 mg Magnesium Hydroxide (Milk Of Magnesia) 30 ml PO DAILY PRN PRN PRN Reason: Constipation Melatonin (Melatonin) 10 mg PO QHS PRN PRN PRN Reason: INSOMNIA Metoprolol Succinate (Toprol Xl (Beta Red)) 200 mg PO DAILY [facility] Last Admin: 05/23/18 08:50 Dose: 200 mg Nutritional Formula (Lactose Free) (Glucerna Shake) 120 ml PO 4X/DAY [facility] Last Admin: 05/23/18 22:48 Dose: 120 ml Ondansetron HCl (Zofran) 4 mg IV Q8H PRN PRN PRN Reason: NAUSEA Promethazine HCl (Phenergan) 12.5 mg IV Q6H PRN PRN PRN Reason: NAUSEA/VOMITING Psyllium Hydrophilic Mucilloid (Metamucil) 1 packet PO DAILY PRN PRN PRN Reason: CONSTIPATION Senna/Docusate Sodium (Senokot-S, Renetta-Colace) 2 tablet PO BID [facility] Last Admin: 05/23/18 22:53 Dose: 2 tablet Sodium Chloride () 5 - 30 ml IV UD PRN PRN Reason: SALINE FLUSH Last Admin: 05/24/18 06:35 Dose: 10 ml Zolpidem Tartrate (Ambien (Generic)) 5 mg PO QHS PRN PRN PRN Reason: INSOMNIA Medical Necessity - Tobacco Use Smoking Status: Never smoker Assessment/Plan All Active Problems Severe sepsis (Resolved) Wound dehiscence (Acute) Vertigo (Resolved) Cough (Resolved) (dyspnea on exertion) (Resolved) H/O aortic valve repair (Resolved) H/O thoracic aortic aneurysm repair (Resolved) Nausea (Resolved) PAF (paroxysmal atrial fibrillation) (Resolved) Patient is a 72-year-old gentleman with multiple comorbidities including recent admission for diabetic foot infection with osteomyelitis involving the right hallux for which he underwent amputation. Hospital stay was apparently complicated by wound with MSSA patient presents with wound dehiscence 1. Wound dehiscence involving the stump of the right big toe for which patient underwent amputation as a result of osteomyelitis with MSSA. Patient has been admitted to regular nursing floor. Cultures were sent on admission. Held off initiating antibiotics. Consultation was placed to podiatry Dr. Obregon as well as Dr. Leija infectious disease. MRI obtained demonstrated Findings consistent with osteomyelitis of the first metatarsal head. Suspected abscess distal to the first metatarsal head. Did initiate cefazolin based on patient previous culture results pending review by infectious plan is for patient to undergo wound debridement once his INR falls below 1.8 2. 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 Patient oral hypoglycemic agents held did initiate long-acting insulin with sliding scale coverage 3. History of aortic aneurysm status post repair 4. History of aortic valvuloplasty 5. Essential hypertension did continue patient home medications with plans to adjust doses if needed 6. Dyslipidemia 7. History of previous pulmonary embolism patient is on systemic anticoagulation with Coumadin INR is therapeutic 8. DVT prophylaxis already on Coumadin no need for additional measures Active Medications Acetaminophen (Tylenol) 650 mg PO Q6H PRN PRN PRN Reason: Mild Pain (scale 0-3)/T>100.7 Al Hydroxide/Mg Hydroxide (Mylanta Ii) 30 ml PO Q6H PRN PRN PRN Reason: Gastric burning Aspirin (Aspirin, Baby) 81 mg PO DAILY@0800 [facility] Last Admin: 05/23/18 08:50 Dose: 81 mg Atorvastatin Calcium (Lipitor) 40 mg PO QHS [facility] Last Admin: 05/22/18 21:58 Dose: 40 mg Dextrose (D50w Syringe) 0 gm IV X1 PRN; Protocol PRN Reason: Hypoglycemia Famotidine (Pepcid) 20 mg PO BID [facility] Last Admin: 05/23/18 08:50 Dose: 20 mg Glucagon () 1 mg IM .X1 PRN PRN Reason: Hypoglycemia Insulin Glargine (Lantus (Bk)) 22 units SC DAILY [facility] Last Admin: 05/23/18 08:51 Dose: 22 units Insulin Human Lispro (Humalog Kwikpen (Bk)) 0 unit SQ ACHS [facility]; Protocol Last Admin: 05/23/18 06:46 Dose: 2 u Losartan Potassium (Cozaar) 100 mg PO DAILY [facility] Last Admin: 05/23/18 05:57 Dose: 100 mg Magnesium Hydroxide (Milk Of Magnesia) 30 ml PO DAILY PRN PRN PRN Reason: Constipation Melatonin (Melatonin) 10 mg PO QHS PRN PRN PRN Reason: INSOMNIA Metoprolol Succinate (Toprol Xl (Beta Red)) 200 mg PO DAILY [facility] Last Admin: 05/23/18 08:50 Dose: 200 mg Nutritional Formula (Lactose Free) (Glucerna Shake) 120 ml PO 4X/DAY [facility] Last Admin: 05/23/18 08:53 Dose: 120 ml Ondansetron HCl (Zofran) 4 mg IV Q8H PRN PRN PRN Reason: NAUSEA Promethazine HCl (Phenergan) 12.5 mg IV Q6H PRN PRN PRN Reason: NAUSEA/VOMITING Psyllium Hydrophilic Mucilloid (Metamucil) 1 packet PO DAILY PRN PRN PRN Reason: CONSTIPATION Senna/Docusate Sodium (Senokot-S, Renetta-Colace) 2 tablet PO BID [facility] Last Admin: 05/23/18 08:50 Dose: 2 tablet Sodium Chloride () 5 - 30 ml IV UD PRN PRN Reason: SALINE FLUSH Last Admin: 05/22/18 21:59 Dose: 10 ml Zolpidem Tartrate (Ambien (Generic)) 5 mg PO QHS PRN PRN PRN Reason: INSOMNIA Clinical Impression(s) from Imaging Studies Lower Extremity MRI 05/22/18 14:38 IMPRESSION: 1. Findings consistent with osteomyelitis of the first metatarsal head. 2. Suspected abscess distal to the first metatarsal head. Electronically Signed: Mila Russell MD at 21:00 EST Tel , Service support , Code Visit Inpatient E&M: 39299 Subs Hosp L2
[2018-05-24] MEDS: Insulin Lispro 100 UNIT/ML INSULN.PEN SQ ×4 (08:51→23:17)
[2018-05-24] MEDS: Senna/Docusate Sodium 1 Tablet 2 TABLET PO ×2 (08:52)
[2018-05-24] MEDS: Famotidine 20 MG Tablet PO ×2 (08:52→23:17)
[2018-05-24] MEDS: Aspirin 81 MG TAB.CHEW PO (08:53)
[2018-05-24] MEDS: Losartan Potassium 100 MG Tablet PO (08:53)
[2018-05-24] MEDS: Glucerna Shake 120 ML LIQUID PO ×4 (08:55→23:18)
[2018-05-24] MEDS: Metoprolol(XL)Succ 200 MG Tablet PO (08:57)
[2018-05-24 09:01] LABS: Prothrombin Time (Protime)PT. 22.3 SECONDS (11.7-14.9)
[2018-05-24 09:06] LABS: Anion Gap 10 (5-15); BUN 18 mg/dL (7-18); BUN/Creat Ratio 14.3 RATIO (10-20); Calcium,Total 8.9 mg/dL (8.5-10.1); Chloride 103 mmol/L (98-107); Creatinine, Serum 1.26 mg/dL (0.70-1.30); EST Glomerular Filtration Rate 60 mL/min (>60); Est Glom Filt Rate - Afr Amer 73 mL/min (>60); Estimated Creatinine Clearance 61.65 ml/min; Glucose 173 mg/dL (74-106); Potassium 4.2 mmol/L (3.5-5.1); Sodium Level 139 mmol/L (136-145)
--- NOTE | 2018-05-24 10:52 | PCM.PN.SRG ---
Patient Problems: Active and Suspected Problems Wound dehiscence (Acute) Subjective: Patient seen at bedside this morning resting comfortably. no n/v/f/c. Objective: patient is alert and orientated x 3. he does not appear in any distress vascular: DP and Pt pulses are palpable to right foot. CFT is less than 5 seconds. Skin temperature is warm to warm. JOSTIN normal derm: full thickness ulceration is present to right foot. there is serous drainage and nonviable tissue at site of 1st metatarsal head. there is minimal indu-wound erythema present to right foot. m/s: no calf pain present to right foot. - Physical Exam Vital Signs Temp Pulse Resp BP Pulse Ox 98.0 F 100 18 129/71 H 94 05/24/18 08:47 05/24/18 09:02 05/24/18 08:47 05/24/18 08:47 05/24/18 08:47 Oxygen Delivery Method Room Air Weight: 120.65 kg Body Mass Index (BMI) 35.1 Finger Stick Blood Glucose 165 Intake and Output for Last 24 Hours 05/22/18 05/23/18 05/24/18 23:59 23:59 23:59 Intake Total 350 / 350 1495 / 1495 672 / 672 Balance 350 / 350 1495 / 1495 672 / 672 Laboratory Tests Past 24 Hrs 05/24/18 05/24/18 05/24/18 08:15 08:15 08:15 PT 22.3 H Cancelled INR 2.0 Cancelled Sodium 139 Potassium 4.2 Chloride 103 Carbon Dioxide 26.0 Anion Gap 10 BUN 18 Creatinine 1.26 Estim Creat Clear Calc 61.65 Est GFR (MDRD) Af Amer 73 Est GFR (MDRD) Non-Af 60 BUN/Creatinine Ratio 14.3 Glucose 173 H Calcium 8.9 POC Glucose 05/24/18 05/23/18 05/23/18 07:32 22:50 16:11 POC Glucose 156 H 221 H 218 H 05/23/18 11:10 POC Glucose 179 H Medical Necessity - Tobacco Use Smoking Status: Never smoker Assessment/Plan All Active Problems Severe sepsis (Resolved) Wound dehiscence (Acute) Vertigo (Resolved) Cough (Resolved) (dyspnea on exertion) (Resolved) H/O aortic valve repair (Resolved) H/O thoracic aortic aneurysm repair (Resolved) Nausea (Resolved) PAF (paroxysmal atrial fibrillation) (Resolved) patient was examined and informed of current findings. on exam today, the wound does have more nonviable tissue and serous drainage. patient was scheduled for procedure on Saturday after talking with nursing supervisor [facility] but given presence of nonviable tissue and drainage, I recommend doing this procedure this . I have spoken with anesthesia and nursing supervisor [employer] today and will plan to proceed tomorrow morning. his INR should be down further. We have discussed primary closure following surgery vs delayed closure. given the appearance of tissue today with drainage, I suspect I will keep mostly open and perform bedside dressing changes/irrigation for several days and take back for delayed closure. will proceed with partial ray amputation tomorrow and likely delayed closure this Saturday. I suspect most of this wound will be able to close with suture once closure performed. patient understands however that there is risk that complete closure may not be achievable and wound vac therapy may be necessary. continue with antibiotics. appreciate input from ID once cultures final.
[2018-05-24 11:21] LABS: Absolute Lymphocyte Count 1.61 X10^3/ul (0.83-4.51); Absolute Neutrophil Count 6.9 X10^3/uL (2.0-7.7); Basophil# 0.03 X10^3/uL; Basophil% 0.3 % (0-1); Eosinophil# 0.36 X10^3/uL; Eosinophils% 3.7 % (0-5); Hematocrit 35.8 % (40-54); Hemoglobin 11.5 g/dl (13.0-16.5); Lymphocyte # 1.61 X10^3/ul (4.0); Lymphocyte % 16.5 % (19-41); Mean Corp Hgb Conc 32.1 g/gl (32-36); Mean Platelet Vol. 9.6 fl (6.2-12.0); Monocyte# 0.82 X10^3/uL; Monocyte% 8.4 % (0-10); Neutrophil # 6.86 X10^3/uL (2.7-7.7); Neutrophil % 70.4 % (47-70); POSITIVE COUNT NO; POSITIVE DIFFERENTIAL NO; POSITIVE MORPHOLOGY NO; Platelet Count 296 K/mm3 (150-450); RBC Distribution Width CV 14.1 % (11.6-14.6); RBC Distribution Width SD 42.1 fl (35.1-43.9); Red Blood Count 4.26 M/mm3 (4.6-6.2); White Blood Count 9.8 K/mm3 (4.4-11.0)
[2018-05-24 12:10] LABS: Bedside Glucose 209 mg/dL (70-110)
[2018-05-24 16:46] LABS: Bedside Glucose 196 mg/dL (70-110)
[2018-05-24] MEDS: Atorvastatin Calcium 40 MG Tablet PO (23:17)
[2018-05-24 23:56] LABS: Bedside Glucose 227 mg/dL (70-110)
[2018-05-25] VITALS (11 sets, daily range): BP systolic 123–156; BP diastolic 67–83; PULSE 74–83; RESP 16–18; TEMP 36.2–37; O2SAT 95–100; BMI 35.1
--- NOTE | 2018-05-25 05:00 | EKG12_ITS ---
Test Reason : AM EKG Blood Pressure : / mmHG Vent. Rate : 078 BPM Atrial Rate : 078 BPM P-R Int : 160 ms QRS Dur : 150 ms QT Int : 428 ms P-R-T Axes : 016 -54 -03 degrees QTc Int : 487 ms Normal sinus rhythm Right bundle branch block Left anterior fascicular block Bifascicular block Abnormal ECG When compared with ECG of 28-MAR-2018 04:55, No significant change was found Confirmed by ANISA COLBERT, YECENIA ([id number]), editor producer MARY INMAN ([id number]) on 05/28/2018 11:36:18 AM Referred By: Landen Blanco Confirmed By:YECENIA LANGE MD
[2018-05-25] MEDS: Cefazolin 1 GM/50 ML BAG IV ×3 (05:20→22:00)
[2018-05-25] MEDS: Metoprolol(XL)Succ 200 MG Tablet PO (05:20)
[2018-05-25 06:51] LABS: Hemoglobin 10.7 g/dl (13.0-16.5); Mean Corp Hgb Conc 31.5 g/gl (32-36); Mean Corpuscular Hgb 26.5 pg (27.0-32.0); Mean Corpuscular Volume 84.2 fL (80-94); Mean Platelet Vol. 9.1 fl (6.2-12.0); Platelet Count 258 K/mm3 (150-450); RBC Distribution Width CV 14.3 % (11.6-14.6); Red Blood Count 4.04 M/mm3 (4.6-6.2); White Blood Count 9.1 K/mm3 (4.4-11.0)
[2018-05-25 06:56] LABS: Bedside Glucose 165 mg/dL (70-110)
[2018-05-25 07:04] LABS: Scan Indicated on CBC? Y/N NO
[2018-05-25 07:16] LABS: Anion Gap 11 (5-15); BUN 20 mg/dL (7-18); BUN/Creat Ratio 16.4 RATIO (10-20); Calcium,Total 8.8 mg/dL (8.5-10.1); Chloride 104 mmol/L (98-107); Creatinine, Serum 1.22 mg/dL (0.70-1.30); EST Glomerular Filtration Rate 62 mL/min (>60); Est Glom Filt Rate - Afr Amer 75 mL/min (>60); Estimated Creatinine Clearance 63.67 ml/min; Glucose 164 mg/dL (74-106); Potassium 4.1 mmol/L (3.5-5.1); Sodium Level 141 mmol/L (136-145)
[2018-05-25 07:23] LABS: International Normalized Ratio 1.6; Prothrombin Time (Protime)PT. 18.9 SECONDS (11.7-14.9)
--- NOTE | 2018-05-25 08:00 | RAD_ITS ---
STUDY: X-RAY - RIGHT FOOT CLINICAL: Male, 72 years old. Osteomyelitis. First ray resection. TECHNIQUE: 3 view(s) of the foot. COMPARISON: March 31, 2018. FINDINGS: Initial image demonstrates a surgical probe at the head of the first metatarsal. The remainder of the images demonstrate resection of the distal first metatarsal. No other interval changes noted. Please refer to the operative report for further details. RAD/Foot 2 Views IMPRESSION: Amputation of the distal first metatarsal in the OR. Electronically Signed: Leighton Fabian DO at 14:19 EST Tel [phone], Service support ,
[2018-05-25] MEDS: 0.9% NaCl Peripheral Flush Adult/Peds IV ×5 (08:14→22:03)
--- NOTE | 2018-05-25 08:35 | PCM.PN.HOSP ---
Patient Problems: Active and Suspected Problems Wound dehiscence (Acute) Subjective: Patient's INR is down to 1.6. Plan is for patient undergo wound debridement by Dr. Obregon Objective: GENERAL: cooperative HEENT: Atraumatic; moist oral mucosa EYES; Anicteric, Normal Conjunctiva NECK; supple, normal thyroid, no distended JVD. RESPIRATORY: Diminished to auscultation bilaterally, CARDIOVASCULAR: Regular S1 S2, no audible murmurs GI: soft, non-tender, normoactive bowel sounds, : No Renal angle tenderness; EXTREMITIES: Bleeding from her right hallux stump MUSCULOSKELETAL: No Joint Tenderness; no muscle waisting NEURO: Awake; no lateralizing signs. SKIN: No Rash PSYCH; Normal affect Vitals/I&O's: Vital Signs Temp Pulse Resp BP Pulse Ox 98.3 F 80 18 140/82 H 96 05/25/18 08:15 05/25/18 08:15 05/25/18 08:15 05/25/18 08:15 05/25/18 08:15 Oxygen Delivery Method Room Air Weight: 120.65 kg Body Mass Index (BMI) 35.1 Finger Stick Blood Glucose 165 Intake and Output for Last 24 Hours 05/23/18 05/24/18 05/25/18 23:59 23:59 23:59 Intake Total 1495 / 1495 1122 / 1122 462 / 462 Balance 1495 / 1495 1122 / 1122 462 / 462 Laboratory Results 05/24/18 08:00: WBC 9.8, RBC 4.26 L, Hgb 11.5 L, Hct 35.8 L, MCV 84.0, MCH 27.0, MCHC 32.1, RDW 14.1, RDW Differential 42.1, Plt Count 296, MPV 9.6, Immature Gran % (Auto) 0.700, Neut % (Auto) 70.4 H, Lymph % (Auto) 16.5 L, [place] % (Auto) 8.4, Eos % (Auto) 3.7, Baso % (Auto) 0.3, Absolute Neuts (auto) 6.9, Absolute Lymphs (auto) 1.61, Total Counted Not Reportable 05/24/18 08:15: Sodium 139, Potassium 4.2, Chloride 103, Carbon Dioxide 26.0, Anion Gap 10, BUN 18, Creatinine 1.26, Estim Creat Clear Calc 61.65, Est GFR (MDRD) Af Amer 73, Est GFR (MDRD) Non-Af 60, BUN/Creatinine Ratio 14.3, Glucose 173 H, Calcium 8.9 05/24/18 08:15: PT 22.3 H, INR 2.0 05/24/18 08:15: PT Cancelled, INR Cancelled 05/24/18 11:30: POC Glucose 209 H 05/24/18 16:27: POC Glucose 196 H 05/24/18 22:54: POC Glucose 227 H 05/25/18 06:01: PT 18.9 H, INR 1.6 05/25/18 06:01: Hemoglobin A1c Pending 05/25/18 06:01: WBC 9.1, RBC 4.04 L, Hgb 10.7 L, Hct 34.0 L, MCV 84.2, MCH 26.5 L, MCHC 31.5 L, RDW 14.3, RDW Differential 44.0 H, Plt Count 258, MPV 9.1 05/25/18 06:01: Sodium 141, Potassium 4.1, Chloride 104, Carbon Dioxide 26.0, Anion Gap 11, BUN 20 H, Creatinine 1.22, Estim Creat Clear Calc 63.67, Est GFR (MDRD) Af Amer 75, Est GFR (MDRD) Non-Af 62, BUN/Creatinine Ratio 16.4, Glucose 164 H, Calcium 8.8 05/25/18 06:22: POC Glucose 165 H Current Medications Acetaminophen (Tylenol) 650 mg PO Q6H PRN PRN PRN Reason: Mild Pain (scale 0-3)/T>100.7 Al Hydroxide/Mg Hydroxide (Mylanta Ii) 30 ml PO Q6H PRN PRN PRN Reason: Gastric burning Aspirin (Aspirin, Baby) 81 mg PO DAILY@0800 [facility] Last Admin: 05/25/18 08:14 Dose: Not Given Atorvastatin Calcium (Lipitor) 40 mg PO QHS [facility] Last Admin: 05/24/18 23:17 Dose: 40 mg Dextrose (D50w Syringe) 0 gm IV X1 PRN; Protocol PRN Reason: Hypoglycemia Famotidine (Pepcid) 20 mg PO BID [facility] Last Admin: 05/24/18 23:17 Dose: 20 mg Glucagon () 1 mg IM .X1 PRN PRN Reason: Hypoglycemia Cefazolin Sodium () 1 gm in 50 mls @ 100 mls/hr IV Q8 [facility] Last Admin: 05/25/18 05:20 Dose: 100 mls/hr Insulin Glargine (Lantus (Bkc)) 22 units SC DAILY [facility] Last Admin: 05/24/18 08:56 Dose: 22 units Insulin Human Lispro (Humalog Kwikpen (Bk)) 0 unit SQ ACHS [facility]; Protocol Last Admin: 05/25/18 06:23 Dose: Not Given Losartan Potassium (Cozaar) 100 mg PO DAILY [facility] Last Admin: 05/24/18 08:53 Dose: 100 mg Magnesium Hydroxide (Milk Of Magnesia) 30 ml PO DAILY PRN PRN PRN Reason: Constipation Melatonin (Melatonin) 10 mg PO QHS PRN PRN PRN Reason: INSOMNIA Metoprolol Succinate (Toprol Xl (Beta Red)) 200 mg PO DAILY [facility] Last Admin: 05/25/18 05:20 Dose: 200 mg Nutritional Formula (Lactose Free) (Glucerna Shake) 120 ml PO 4X/DAY [facility] Last Admin: 05/25/18 08:14 Dose: Not Given Ondansetron HCl (Zofran) 4 mg IV Q8H PRN PRN PRN Reason: NAUSEA Promethazine HCl (Phenergan) 12.5 mg IV Q6H PRN PRN PRN Reason: NAUSEA/VOMITING Psyllium Hydrophilic Mucilloid (Metamucil) 1 packet PO DAILY PRN PRN PRN Reason: CONSTIPATION Senna/Docusate Sodium (Senokot-S, Renetta-Colace) 2 tablet PO BID [facility] Last Admin: 05/24/18 08:52 Dose: 2 tablet Sodium Chloride () 5 - 30 ml IV UD PRN PRN Reason: SALINE FLUSH Last Admin: 05/25/18 08:14 Dose: 10 ml Zolpidem Tartrate (Ambien (Generic)) 5 mg PO QHS PRN PRN PRN Reason: INSOMNIA Medical Necessity - Tobacco Use Smoking Status: Never smoker Assessment/Plan All Active Problems Severe sepsis (Resolved) Wound dehiscence (Acute) Vertigo (Resolved) Cough (Resolved) (dyspnea on exertion) (Resolved) H/O aortic valve repair (Resolved) H/O thoracic aortic aneurysm repair (Resolved) Nausea (Resolved) PAF (paroxysmal atrial fibrillation) (Resolved) Patient is a 72-year-old gentleman with multiple comorbidities including recent admission for diabetic foot infection with osteomyelitis involving the right hallux for which he underwent amputation. Hospital stay was apparently complicated by wound with MSSA patient presents with wound dehiscence 1. Wound dehiscence involving the stump of the right big toe for which patient underwent amputation as a result of osteomyelitis with MSSA. Patient has been admitted to regular nursing floor. Cultures were sent on admission. Held off initiating antibiotics. Consultation was placed to podiatry Dr. Obregon as well as Dr. Leija infectious disease. MRI obtained demonstrated Findings consistent with osteomyelitis of the first metatarsal head. Suspected abscess distal to the first metatarsal head. Did initiate cefazolin based on patient previous culture results pending review by infectious plan is for patient to undergo wound debridement once his INR falls below 1.8 patient's INR 1.6 as of the morning of 05/25/2018 patient is scheduled to undergo surgical wound debridement by podiatry 2. 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 Patient oral hypoglycemic agents held did initiate long-acting insulin with sliding scale coverage 3. History of aortic aneurysm status post repair 4. History of aortic valvuloplasty 5. Essential hypertension did continue patient home medications with plans to adjust doses if needed 6. Dyslipidemia 7. History of previous pulmonary embolism patient is on systemic anticoagulation with Coumadin INR ; it was held in view of patient's anticipated surgical wound debridement 8. DVT prophylaxis already on Coumadin no need for additional measures Code Visit Inpatient E&M: 38447 Subs Hosp L2
--- NOTE | 2018-05-25 08:46 | NURSING ---
REPORT CALLED TO FRANCISCO MARI .
[2018-05-25 08:55] LABS: Hemoglobin A1c 6.9 % (4.2-6.3)
--- NOTE | 2018-05-25 08:55 | PN.SURG_ITS ---
Patient Problems: Active and Suspected Problems Wound dehiscence (Acute) Subjective: patient scheduled for I&D with bone resection, first metatarsal - Physical Exam Vital Signs Temp Pulse Resp BP Pulse Ox 98.3 F 80 18 140/82 H 96 05/25/18 08:15 05/25/18 08:15 05/25/18 08:15 05/25/18 08:15 05/25/18 08:15 Oxygen Delivery Method Room Air Weight: 120.65 kg Body Mass Index (BMI) 35.1 Finger Stick Blood Glucose 165 Intake and Output for Last 24 Hours 05/23/18 05/24/18 05/25/18 23:59 23:59 23:59 Intake Total 1495 / 1495 1122 / 1122 462 / 462 Balance 1495 / 1495 1122 / 1122 462 / 462 Laboratory Tests Past 24 Hrs 05/24/18 05/24/18 05/24/18 08:00 08:15 08:15 WBC 9.8 RBC 4.26 L Hgb 11.5 L Hct 35.8 L MCV 84.0 MCH 27.0 MCHC 32.1 RDW 14.1 RDW Differential 42.1 Plt Count 296 MPV 9.6 Immature Gran % (Auto) 0.700 Neut % (Auto) 70.4 H Lymph % (Auto) 16.5 L [place] % (Auto) 8.4 Eos % (Auto) 3.7 Baso % (Auto) 0.3 Absolute Neuts (auto) 6.9 Absolute Lymphs (auto) 1.61 Total Counted Not Reportable PT 22.3 H INR 2.0 Sodium 139 Potassium 4.2 Chloride 103 Carbon Dioxide 26.0 Anion Gap 10 BUN 18 Creatinine 1.26 Estim Creat Clear Calc 61.65 Est GFR (MDRD) Af Amer 73 Est GFR (MDRD) Non-Af 60 BUN/Creatinine Ratio 14.3 Glucose 173 H Hemoglobin A1c Calcium 8.9 05/25/18 05/25/18 05/25/18 06:01 06:01 06:01 WBC 9.1 RBC 4.04 L Hgb 10.7 L Hct 34.0 L MCV 84.2 MCH 26.5 L MCHC 31.5 L RDW 14.3 RDW Differential 44.0 H Plt Count 258 MPV 9.1 Immature Gran % (Auto) Neut % (Auto) Lymph % (Auto) [place] % (Auto) Eos % (Auto) Baso % (Auto) Absolute Neuts (auto) Absolute Lymphs (auto) Total Counted PT 18.9 H INR 1.6 Sodium Potassium Chloride Carbon Dioxide Anion Gap BUN Creatinine Estim Creat Clear Calc Est GFR (MDRD) Af Amer Est GFR (MDRD) Non-Af BUN/Creatinine Ratio Glucose Hemoglobin A1c Pending Calcium 05/25/18 06:01 WBC RBC Hgb Hct MCV MCH MCHC RDW RDW Differential Plt Count MPV Immature Gran % (Auto) Neut % (Auto) Lymph % (Auto) [place] % (Auto) Eos % (Auto) Baso % (Auto) Absolute Neuts (auto) Absolute Lymphs (auto) Total Counted PT INR Sodium 141 Potassium 4.1 Chloride 104 Carbon Dioxide 26.0 Anion Gap 11 BUN 20 H Creatinine 1.22 Estim Creat Clear Calc 63.67 Est GFR (MDRD) Af Amer 75 Est GFR (MDRD) Non-Af 62 BUN/Creatinine Ratio 16.4 Glucose 164 H Hemoglobin A1c Calcium 8.8 POC Glucose 05/25/18 05/24/18 05/24/18 06:22 22:54 16:27 POC Glucose 165 H 227 H 196 H 05/24/18 11:30 POC Glucose 209 H Medical Necessity - Tobacco Use Smoking Status: Never smoker Assessment/Plan All Active Problems Severe sepsis (Resolved) Wound dehiscence (Acute) Vertigo (Resolved) Cough (Resolved) (dyspnea on exertion) (Resolved) H/O aortic valve repair (Resolved) H/O thoracic aortic aneurysm repair (Resolved) Nausea (Resolved) PAF (paroxysmal atrial fibrillation) (Resolved) Patient is admitted for chronic wound of right foot with underlying osteomyelitis. Patient has tried conservative care not limited to wound vac, delayed closure. despite attempts at conservative care/limb salvage, he continues to have chronic wound, now with draining wound and mri confirming osteomyelitis. I have discussed hyperbarics and attempted wound vac vs further bone resection. patient interested in further bone resection. he is not interested in hyperbarics. I have discussed procedure at great length. I discussed opening his incision, debriding all nonviable tissue and resecting metatarsal head/distal shaft of 1st metatarsal. I discussed risks of this procedure not limited to further infection, transfer lesions sub 2nd metatarsal or lesser metatarsal heads, inability to close wound requiring wound vac/advanced wound care, further foot amputation, below knee amputation, cardiac arrest, dvt, . I discussed plan of likely keeping wound partially open to allow post-op dressing changes consisting of bedside irrigation and awaiting culture. If wound is left open, will plan for delayed closure later in week. Patient understands all risks. He has consented to proceed with partial 1st ray amputation and debridement of diabetic foot infection.
[2018-05-25] MEDS: Bupivacaine Mpf 0.5% 30 ML VIAL (09:23)
--- NOTE | 2018-05-25 10:28 | PCM.IMDPSTOP ---
Immediate Post-Op Note Date of Procedure: 05/25/18 Primary Surgeon/Physician: Zachary Obregon DPM security consultant: none Pre-Operative Diagnosis: diabetic foot infection with osteomyelitis right foot Post-Operative Diagnosis: diabetic foot infection with osteomyelitis, right 1st metatarsal Surgery/Procedure Performed:: incision and drainage right foot with partial 1st ray resection Description of Surgical Findings:: ulceration with underlying 1st metatarsal with probe to bone and findings concerning for osteomyelitis of first metatarsal head. mild serous drainage present. wound packed up and will plan for delayed closure on Saturday. Estimated Blood Loss: 100 cc Specimen's removed: first metatarsal head, right foot Type of Anesthesia:: Local MAC ASA Class: ASA3 Severe Disease
--- NOTE | 2018-05-25 10:31 | OP.PN_ITS ---
Immediate Post-Op Note Date of Procedure: 05/25/18 Primary Surgeon/Physician: Zachary Obregon DPM furniture mover helper: none Pre-Operative Diagnosis: diabetic foot infection with osteomyelitis right foot Post-Operative Diagnosis: diabetic foot infection with osteomyelitis, right 1st metatarsal Surgery/Procedure Performed:: incision and drainage right foot with partial 1st ray resection Description of Surgical Findings:: ulceration with underlying 1st metatarsal with probe to bone and findings concerning for osteomyelitis of first metatarsal head. mild serous drainage present. wound packed up and will plan for delayed closure on Saturday. Estimated Blood Loss: 100 cc Specimen's removed: first metatarsal head, right foot Type of Anesthesia:: Local MAC ASA Class: ASA3 Severe Disease
--- NOTE | 2018-05-25 10:31 | RAD_ITS ---
STUDY: X-RAY - RIGHT FOOT CLINICAL: Male, 72 years old. Postoperative, first toe resection TECHNIQUE: 2 view(s) of the foot. COMPARISON: Plain films earlier FINDINGS: Patient has undergone amputation of the first toe at the mid shaft metatarsal level. Soft tissue swelling noted in the remaining soft tissue stump. Remaining osseous structures are within normal limits. RAD/Foot 2 Views IMPRESSION: As above Electronically Signed: Alejandro Singh DO at 15:25 EST Tel , Service support ,
[2018-05-25] MEDS: Aspirin 81 MG TAB.CHEW PO (11:36)
[2018-05-25] MEDS: Famotidine 20 MG Tablet PO ×2 (11:36→21:59)
[2018-05-25] MEDS: Senna/Docusate Sodium 1 Tablet 2 TABLET PO ×2 (11:36→21:59)
[2018-05-25] MEDS: Losartan Potassium 100 MG Tablet PO (11:38)
[2018-05-25] MEDS: Glucerna Shake 120 ML LIQUID PO ×3 (11:41→22:00)
[2018-05-25 16:05] LABS: Absolute Lymphocyte Count 1.82 X10^3/ul (0.83-4.51); Absolute Neutrophil Count 7.7 X10^3/uL (2.0-7.7); Basophil# 0.01 X10^3/uL; Basophil% 0.1 % (0-1); Eosinophil# 0.49 X10^3/uL; Eosinophils% 4.5 % (0-5); Hematocrit 33.2 % (40-54); Hemoglobin 10.5 g/dl (13.0-16.5); Lymphocyte # 1.82 X10^3/ul (4.0); Lymphocyte % 16.7 % (19-41); Mean Corp Hgb Conc 31.6 g/gl (32-36); Mean Corpuscular Hgb 26.9 pg (27.0-32.0); Mean Corpuscular Volume 85.1 fL (80-94); Mean Platelet Vol. 8.7 fl (6.2-12.0); Monocyte# 0.78 X10^3/uL; Monocyte% 7.2 % (0-10); Neutrophil # 7.71 X10^3/uL (2.7-7.7); Neutrophil % 70.9 % (47-70); Platelet Count 253 K/mm3 (150-450); RBC Distribution Width CV 14.3 % (11.6-14.6); RBC Distribution Width SD 44.5 fl (35.1-43.9); White Blood Count 10.9 K/mm3 (4.4-11.0)
[2018-05-25 16:08] LABS: POSITIVE COUNT NO; POSITIVE DIFFERENTIAL NO; POSITIVE MORPHOLOGY NO
[2018-05-25] MEDS: Insulin Lispro 100 UNIT/ML INSULN.PEN SQ ×2 (16:16→21:59)
[2018-05-25 18:16] LABS: Bedside Glucose 170 mg/dL (70-110)
--- NOTE | 2018-05-25 20:45 | PCM.OPRPT ---
Report of Operation Date of Procedure: 05/25/18 Pre-Operative Diagnosis: diabetic foot infection with osteomyelitis right foot Post-Operative Diagnosis: diabetic foot infection with osteomyelitis, right 1st metatarsal Surgery/Procedure Performed:: incision and drainage right foot with partial 1st ray resection Description of Surgical Findings:: ulceration with underlying 1st metatarsal with probe to bone and findings concerning for osteomyelitis of first metatarsal head. mild serous drainage present. wound packed up and will plan for delayed closure on Saturday. personnel psychologist: none Type of Anesthesia:: Local MAC Specimen's removed: first metatarsal head, right foot Drains: plain packing Estimated Blood Loss (mL): 100 cc Description of Procedure: patient is a 72 year old male admitted for diabetic foot infection of right foot. He underwent right hallux amputation in March for MSSA osteomyelitis. He was treated for 6 weeks with IV antibiotics as post-lavage cultures of 1st metatarsal was significant for residual osteomyelitis. due to post-op drainage, he developed dehiscence. Dehiscence was initially treated with local wound care and compression. when his wound failed to improve, wound vac therapy was instituted but unfortunately, patient had issues maintaining seal. Several weeks ago, the wound was closed with suture and following one week, the foot had appeared to be healing. Patient was seen this past at which time, the previously closed wound had opened up and there was serous drainage present. I discussed with patient this past regarding the present wound. we discussed referral to hyperbarics and trial of wound vac therapy a subsequent time vs surgical intervention for partial first ray resection and closure of wound. after discussion, patient selected surgical intervention. Patient was admitted to [facility]. upon admission, his INR was 3.1. Ancef was ordered by primary team. MRI was ordered which revealed osteomyelitis of 1st metatarsal head and conerning abscess. Infectious disease was consulted. Patient has been afebrile and wbc has been normal. since patient has been stable, I&D and resection of bone has been delayed while waiting for INR to decrease. On exam yesterday, there was increased drainage of foot ulceration so decision was made yesterday with inr 2.0 to proceed with surgery today. Patient consents for partial first ray resection of right foot with debridement of nonviable tissue. discussed risks of this procedure not limited to infection, pain, swelling, bleeding, transfer lesions, hematoma, wound dehiscence, need for advanced wound care, further bone resection, further foot or leg amputation, cardiac arrest, dvt, . Patient fully understands rationale for surgery and consents to proceed. Patient was transferred to operating room and placed on operating room table in supine position. he was placed under monitored anesthesia care and the right foot was prepped and draped in usual aseptic technique. the right foot was injected with 0.5% marcaine plain. time out was then performed making note of procedure and personal involved. attention was then directed to right foot where ulceration along medial aspect of right 1st metatarsal was noted. there was serous drainage present. the ulceration of right foot measures 1.4 x 1.0 cm. Incision both proximal and distal to ulceration was performed down to level of bone. there was serous drainage/nonviable tissue present along ulceration and this tissue was collected and sent for tissue culture. Attention was then directed to first metatarsal head. the plantar medial aspect of 1st metatarsal head appeared nonviable. using a sagittal saw, the first metatarsal head was resected with bone resection orientated proximal medial superior to distal lateral plantar. the medial aspect of first metatarsal was sent for micro and the remaining 1st metatarsal was sent for pathology. Irrigation was then performed with 5000 cc of normal saline. clean instruments and gloves were exchanged. a post-lavage sample of bone was sent for pathology and micro. cautery was performed and the wound was packed with topical thrombin, gel foam, plain packing. retention suture was placed proximally but distal incision was left open. wound appears free of tension and wound appears to have potential to close freely without tension post-op dressing was applied consisting of betadine adaptic, 4x4, guaze, yu and bernie. Patient was awakened and found to be in stable condition. Patient will continue with antibiotics. I will perform dressing changes with irrigation daily. will plan for closure of wound this Saturday. will have primary hold coumadin until wound is closed later this week.
[2018-05-25] MEDS: Atorvastatin Calcium 40 MG Tablet PO (21:59)
[2018-05-25 23:26] LABS: Bedside Glucose 217 mg/dL (70-110)
--- NOTE | 2018-05-26 | BON_PTH ---
PATIENT: RICHARD ROY LOC: MS3 U#:[id number] AGE/SX: 72/M ROOM: MT315 RE05/22/[address]: Dr. Bear Nolan MD : 1945 BED: 1 DIS: 05/29/2018 SPEC #: [id number] RECD: 05/26/18 14:29 STATUS: VINNIE BRANDON #: [id number] CAMILA: 05/26/18 00:[address]: Bear Nolan DEPT: SURGICAL PATHOLOGY RECD BY: Asaf Esteban ENTERED: 05/26/18 14:30 SP TYPE: Bone OTHR DR: MD Dr. Chidi Gannon III, MD Dr. Matthew Testrake, DPNelson Tissues: A - Bone of foot, NOS B - Bone of foot, NOS Procedures: Decalcification bone/plaque Surgery Specimen Level III HEADER OPERATION: Partial 1st ray amputation, right foot PRE-OP DIAGNOSIS: Osteomyelitis, right foot TISSUE SUBMITTED: A. Right 1st metatarsal head, B. Right 1st metatarsal bone post lavage MICROSCOPIC DIAGNOSIS A. Right first metatarsal head, excision: Acute osteomyelitis. See comment. B. Right first metatarsal bone, post lavage, biopsy: Unremarkable fragment of bone. No evidence of inflammation. AM:elizabeth 05/29/18 COMMENT The bony surgical margin of resection is free of inflammation. MICROSCOPIC DESCRIPTION Slides are reviewed. GROSS DESCRIPTION A. Received in fixative is one container labeled with the patient's name and designated right first metatarsal head. The specimen consists of bone consistent with metatarsal measuring 3 x 2.5 x 2.5 cm. A small defect is noted near the articular surface consistent with biopsy site. This area is inked in green. The surgical margin of the neck of the metatarsal head is inked in black. The specimen is sectioned and totally submitted in two cassettes after decalcification. B. Received is one container labeled with the patient name and designated right first metatarsal bone post lavage. The specimen consists of one minute fragment of bone that measures 0.2 x 0.2 x 0.1 cm. The specimen is totally submitted in one cassette after decalcification. TESSIE:elizabeth 05/26/18 TC: 2 CPT: 60679k7, 90013b9
[2018-05-26 04:47] VITALS: BP 134/71; PULSE 82; RESP 18; TEMP 36.6; O2SAT 94
[2018-05-26 06:10] LABS: Absolute Lymphocyte Count 1.63 X10^3/ul (0.83-4.51); Absolute Neutrophil Count 7.9 X10^3/uL (2.0-7.7); Basophil# 0.03 X10^3/uL; Basophil% 0.3 % (0-1); Eosinophil# 0.52 X10^3/uL; Eosinophils% 4.7 % (0-5); Hematocrit 32.2 % (40-54); Hemoglobin 10.1 g/dl (13.0-16.5); Lymphocyte # 1.63 X10^3/ul (4.0); Lymphocyte % 14.8 % (19-41); Mean Corp Hgb Conc 31.4 g/gl (32-36); Mean Corpuscular Hgb 26.6 pg (27.0-32.0); Mean Platelet Vol. 8.7 fl (6.2-12.0); Monocyte# 0.84 X10^3/uL; Monocyte% 7.6 % (0-10); Neutrophil # 7.92 X10^3/uL (2.7-7.7); Neutrophil % 72.1 % (47-70); Platelet Count 244 K/mm3 (150-450); RBC Distribution Width CV 14.2 % (11.6-14.6); Red Blood Count 3.79 M/mm3 (4.6-6.2)
[2018-05-26 06:12] LABS: International Normalized Ratio 1.3; Prothrombin Time (Protime)PT. 16.4 SECONDS (11.7-14.9)
[2018-05-26 06:19] LABS: POSITIVE COUNT NO; POSITIVE DIFFERENTIAL NO; POSITIVE MORPHOLOGY NO
[2018-05-26] MEDS: Cefazolin 1 GM/50 ML BAG IV (06:27)
[2018-05-26] MEDS: Insulin Lispro 100 UNIT/ML INSULN.PEN SQ ×4 (06:29→21:55)
[2018-05-26] MEDS: 0.9% NaCl Peripheral Flush Adult/Peds IV ×4 (06:31→21:55)
[2018-05-26 06:55] LABS: Bedside Glucose 189 mg/dL (70-110)
[2018-05-26 08:13] VITALS: BP 145/66; PULSE 77; RESP 18; TEMP 36.9; O2SAT 97
[2018-05-26] MEDS: Losartan Potassium 100 MG Tablet PO (08:16)
[2018-05-26] MEDS: Aspirin 81 MG TAB.CHEW PO (08:16)
[2018-05-26] MEDS: Famotidine 20 MG Tablet PO ×2 (08:17→21:54)
[2018-05-26] MEDS: Senna/Docusate Sodium 1 Tablet 2 TABLET PO ×2 (08:17→21:54)
--- NOTE | 2018-05-26 08:51 | PCM.PROGNOTE ---
Patient Problems: Active and Suspected Problems Wound dehiscence (Acute) Subjective: Chief complaint: Follow-up after admission for osteomyelitis of the first metatarsal head with suspected abscess. Patient seen and examined. No acute events overnight. He denied any significant complaints. He denies any right foot pain. Denied fever or chills. His vital signs are stable. - Physical Exam General: Alert, Oriented x3, Cooperative, No apparent distress HEENT: Atraumatic, PERRLA, EOMI, Normocephalic Oral: Moist Mucosa Neck: Supple, No JVD, Negative Carotid Bruits, Trachea Midline, Thyroid Normal Size and Texture Lungs: Clear to auscultation, Normal air movement, No rhonchi, No wheeze, No rales Cardiovascular: Regular rate, Regular Rhythm, Normal S1, Normal S2, No murmurs Abdomen: Bowel Sounds Present, Soft, Non Tender, Non-Distended, No Hepato-splenomegaly Extremities: No clubbing, No cyanosis, No edema Skin: No rashes, No breakdown Lymphatic: No Cervical, Supraclavicular, or Inguinal Adenopathy Neurological: Cranial nerves II-XII grossly intact, Motor Exam 5/5 strength throughout Psych/Mental Status: Normal Affect, Appropriate, Alert and oriented to time, place, person, mood and affect Vital Signs Temp Pulse Resp BP Pulse Ox 98.5 F 77 18 145/66 H 97 05/26/18 08:13 05/26/18 08:13 05/26/18 08:13 05/26/18 08:13 05/26/18 08:13 Oxygen Delivery Method Room Air Weight: 265 lb 15.803 oz Body Mass Index (BMI) 35.1 Finger Stick Blood Glucose 165 Intake and Output for Last 24 Hours 05/24/18 05/25/18 05/26/18 23:59 23:59 23:59 Intake Total 1122 / 1122 1462 / 1462 400 / 400 Balance 1122 / 1122 1462 / 1462 400 / 400 Microbiology Past 72 Hours 05/23/18 13:00 Blood Culture - Preliminary Blood Culture (Wb) - Anticubital Left No growth in 48 hours. 05/23/18 12:45 Blood Culture - Preliminary Blood Culture (Wb) - Anticubital Left No growth in 48 hours. Laboratory Tests Past 24 Hrs 05/25/18 05/25/18 05/26/18 06:01 15:35 05:44 WBC 10.9 RBC 3.90 L Hgb 10.5 L Hct 33.2 L MCV 85.1 MCH 26.9 L MCHC 31.6 L RDW 14.3 RDW Differential 44.5 H Plt Count 253 MPV 8.7 Immature Gran % (Auto) 0.600 Neut % (Auto) 70.9 H Lymph % (Auto) 16.7 L [place] % (Auto) 7.2 Eos % (Auto) 4.5 Baso % (Auto) 0.1 Absolute Neuts (auto) 7.7 Absolute Lymphs (auto) 1.82 Total Counted Not Reportable PT 16.4 H INR 1.3 Hemoglobin A1c 6.9 H 05/26/18 05:44 WBC 11.0 RBC 3.79 L Hgb 10.1 L Hct 32.2 L MCV 85.0 MCH 26.6 L MCHC 31.4 L RDW 14.2 RDW Differential 44.0 H Plt Count 244 MPV 8.7 Immature Gran % (Auto) 0.500 Neut % (Auto) 72.1 H Lymph % (Auto) 14.8 L [place] % (Auto) 7.6 Eos % (Auto) 4.7 Baso % (Auto) 0.3 Absolute Neuts (auto) 7.9 H Absolute Lymphs (auto) 1.63 Total Counted Not Reportable PT INR Hemoglobin A1c POC Glucose 05/26/18 05/25/18 05/25/18 06:25 21:55 16:14 POC Glucose 189 H 217 H 170 H Clinical Impression(s) from Imaging Studies Lower Extremity MRI 05/22/18 14:38 IMPRESSION: 1. Findings consistent with osteomyelitis of the first metatarsal head. 2. Suspected abscess distal to the first metatarsal head. Electronically Signed: Mila Russell MD at 21:00 EST Tel , Service support , Foot X-Ray 05/25/18 08:00 IMPRESSION: Amputation of the distal first metatarsal in the OR. 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 #1 acute right foot diabetic infection/osteomyelitis of the first metatarsal head/suspected abscess: Status post incision and drainage of the right foot with partial first ray resection, postoperative day 1. Patient had diabetic foot infection with osteomyelitis of the right hallux for which he underwent amputation, hospital stay complicated by wound infection with MSSA, this was back in March,. At this time, he is on IV cefazolin. His vital signs are stable, afebrile, no leukocytosis. Blood culture showed no growth in 48 hours. Wound cultures pending. Podiatry medicine and infectious disease on the case. Plan to continue same treatment. #2 type 2 diabetes mellitus: Blood sugar has been stable. Continue Lantus and insulin sliding scale. #3 hypertension: Blood pressure stable, continue losartan and metoprolol. #4 hyperlipidemia: Continue statins. 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 This was held because of surgery. Today's INR is 1.3. Plan to resume Coumadin today if okay with podiatry medicine. #6 history of aortic aneurysm: Status post repair, stable. #7 chronic anemia: It is normocytic anemia likely due to anemia of chronic disease. Baseline hemoglobin has been around 10-11 g/dL. Today's hemoglobin is 10.1 g/dL, stable, asymptomatic. #8 DVT prophylaxis: SCDs. This note was generated with [employer] software. It may contain incorrect words, spelling, and punctuation that were not noted in checking the note before signing. Code Visit Inpatient E&M: 37526 Subs Hosp L2
--- NOTE | 2018-05-26 10:44 | PCM.PN.SRG ---
Patient Problems: Active and Suspected Problems Wound dehiscence (Acute) Subjective: patient seen at bedside this morning. patient denies n/v/f/c. patient has no pain. no events over night. Objective: Patient is alert and orientated x 3. He does not appear to be in any distress right foot with dressing clean, dry, intact. minimal strike thru was noted. dressing removed. there is surgical incision that remains packed open. no purulent drainage noted. no active bleeding. skin edges appear viable with no duskyness. good granulation tissue in subcutaneous tissue with no evidence of necrosis. manipulation of incision demonstrates ability to close wound without tension. no erythema is noted to right foot. tissue culture and pre-lavage bone: staph aureus post-lavage cultures with no growth. pathology in process of decal. - Physical Exam Vital Signs Temp Pulse Resp BP Pulse Ox 98.5 F 77 18 145/66 H 97 05/26/18 08:13 05/26/18 08:13 05/26/18 08:13 05/26/18 08:13 05/26/18 08:13 Oxygen Delivery Method Room Air Weight: 120.65 kg Body Mass Index (BMI) 35.1 Finger Stick Blood Glucose 165 Intake and Output for Last 24 Hours 05/24/18 05/25/18 05/26/18 23:59 23:59 23:59 Intake Total 1122 / 1122 1462 / 1462 400 / 400 Balance 1122 / 1122 1462 / 1462 400 / 400 Microbiology Past 72 Hours 05/25/18 Unknown Gram Stain - Final Bone - Right Foot Wound Culture - Preliminary No growth-Final to follow 05/25/18 Unknown Gram Stain - Final Bone - Right Foot Wound Culture - Preliminary Staphylococcus aureus 05/25/18 Unknown Gram Stain - Final Tissue - Right Foot Wound Culture - Preliminary Staphylococcus aureus 05/23/18 13:00 Blood Culture - Preliminary Blood Culture (Wb) - Anticubital Left No growth in 48 hours. 05/23/18 12:45 Blood Culture - Preliminary Blood Culture (Wb) - Anticubital Left No growth in 48 hours. Laboratory Tests Past 24 Hrs 05/25/18 05/26/18 05/26/18 15:35 05:44 05:44 WBC 10.9 11.0 RBC 3.90 L 3.79 L Hgb 10.5 L 10.1 L Hct 33.2 L 32.2 L MCV 85.1 85.0 MCH 26.9 L 26.6 L MCHC 31.6 L 31.4 L RDW 14.3 14.2 RDW Differential 44.5 H 44.0 H Plt Count 253 244 MPV 8.7 8.7 Immature Gran % (Auto) 0.600 0.500 Neut % (Auto) 70.9 H 72.1 H Lymph % (Auto) 16.7 L 14.8 L [place] % (Auto) 7.2 7.6 Eos % (Auto) 4.5 4.7 Baso % (Auto) 0.1 0.3 Absolute Neuts (auto) 7.7 7.9 H Absolute Lymphs (auto) 1.82 1.63 Total Counted Not Reportable Not Reportable PT 16.4 H INR 1.3 POC Glucose 05/26/18 05/25/18 05/25/18 06:25 21:55 16:14 POC Glucose 189 H 217 H 170 H Medical Necessity - Tobacco Use Smoking Status: Never smoker Assessment/Plan All Active Problems Wound dehiscence (Acute) H/O aortic valve repair (Resolved) H/O thoracic aortic aneurysm repair (Resolved) Nausea (Resolved) PAF (paroxysmal atrial fibrillation) (Resolved) Patient was examined and informed of current exam. He is day 1 post first ray amputation. wound was evaluated and sterile dressing change with irrigation was performed. will tentatively arrange delayed closure on Saturday afternoon. he will continue with antibiotics per infectious disease recommendations. would recommend holding coumadin if medically stable until closure to decrease bleeding. I have spoken with case management for possible discharge possibly or saturday pending cultures and need for antibiotics post-op.
[2018-05-26] MEDS: Glucerna Shake 120 ML LIQUID PO ×3 (11:26→21:54)
[2018-05-26 11:27] VITALS: BP 133/67; PULSE 85
[2018-05-26] MEDS: Metoprolol(XL)Succ 200 MG Tablet PO (11:27)
--- NOTE | 2018-05-26 13:07 | PN.ID_ITS ---
Patient Problems: Active and Suspected Problems Wound dehiscence (Acute) Subjective: Feeling ok, no pain in foot, no fever, no n/v/d. - Physical Exam General: Alert, Cooperative, No apparent distress Lungs: Clear to auscultation, Normal air movement Cardiovascular: Regular rate, Regular Rhythm Abdomen: Soft, Non Tender, Non-Distended Skin: Incision - foot wrapped Vital Signs Temp Pulse Resp BP Pulse Ox 98.5 F 85 18 133/67 H 97 05/26/18 08:13 05/26/18 11:27 05/26/18 08:13 05/26/18 11:27 05/26/18 08:13 Oxygen Delivery Method Room Air Weight: 120.65 kg Body Mass Index (BMI) 35.1 Finger Stick Blood Glucose 165 Intake and Output for Last 24 Hours 05/24/18 05/25/18 05/26/18 23:59 23:59 23:59 Intake Total 1122 / 1122 1462 / 1462 400 / 400 Balance 1122 / 1122 1462 / 1462 400 / 400 Microbiology Past 72 Hours 05/25/18 Unknown Gram Stain - Final Bone - Right Foot Wound Culture - Preliminary No growth-Final to follow 05/25/18 Unknown Gram Stain - Final Bone - Right Foot Wound Culture - Preliminary Staphylococcus aureus 05/25/18 Unknown Gram Stain - Final Tissue - Right Foot Wound Culture - Preliminary Staphylococcus aureus 05/23/18 13:00 Blood Culture - Preliminary Blood Culture (Wb) - Anticubital Left No growth in 48 hours. 05/23/18 12:45 Blood Culture - Preliminary Blood Culture (Wb) - Anticubital Left No growth in 48 hours. Laboratory Tests Past 24 Hrs 05/25/18 05/26/18 05/26/18 15:35 05:44 05:44 WBC 10.9 11.0 RBC 3.90 L 3.79 L Hgb 10.5 L 10.1 L Hct 33.2 L 32.2 L MCV 85.1 85.0 MCH 26.9 L 26.6 L MCHC 31.6 L 31.4 L RDW 14.3 14.2 RDW Differential 44.5 H 44.0 H Plt Count 253 244 MPV 8.7 8.7 Immature Gran % (Auto) 0.600 0.500 Neut % (Auto) 70.9 H 72.1 H Lymph % (Auto) 16.7 L 14.8 L [place] % (Auto) 7.2 7.6 Eos % (Auto) 4.5 4.7 Baso % (Auto) 0.1 0.3 Absolute Neuts (auto) 7.7 7.9 H Absolute Lymphs (auto) 1.82 1.63 Total Counted Not Reportable Not Reportable PT 16.4 H INR 1.3 POC Glucose 05/26/18 05/25/18 05/25/18 06:25 21:55 16:14 POC Glucose 189 H 217 H 170 H Medical Necessity - Tobacco Use Smoking Status: Never smoker Route of nutrition/ use of supplements: [] Nutritional Intake: [] IV Site: [] Rodrigues Catheter: [] - Assessment/Plan Antibiotics: [] Assessment/Plan: [] Active and Suspected Problems Wound dehiscence (Acute) R 1st metatarsal MSSA osteo and abscess s/p 03/[address] Obregon. Now s/p 1st metatarsal resection 05/25/18. Bone cx with staph aureus. Most likely will need 6-8 weeks of abx via picc. Will follow
[2018-05-26 13:21] LABS: Bedside Glucose 262 mg/dL (70-110)
[2018-05-26] MEDS: Cefazolin 2 GM in 0.9% Normal Saline 100 ML IV ×2 (13:43→21:55)
[2018-05-26 14:59] VITALS: BP 125/73; PULSE 75; RESP 16; TEMP 36.6; O2SAT 95
[2018-05-26 16:31] LABS: Bedside Glucose 213 mg/dL (70-110)
[2018-05-26 20:25] VITALS: BP 129/71; PULSE 79; RESP 16; TEMP 36.6; O2SAT 97
[2018-05-26] MEDS: Atorvastatin Calcium 40 MG Tablet PO (21:54)
[2018-05-26 22:11] LABS: Bedside Glucose 221 mg/dL (70-110)
[2018-05-27 02:25] VITALS: BP 145/79; PULSE 73; RESP 16; TEMP 36.7; O2SAT 96
[2018-05-27] MEDS: Cefazolin 2 GM in 0.9% Normal Saline 100 ML IV ×3 (05:25→22:38)
[2018-05-27] MEDS: 0.9% NaCl Peripheral Flush Adult/Peds IV ×3 (05:25→13:17)
[2018-05-27] MEDS: Insulin Lispro 100 UNIT/ML INSULN.PEN SQ ×4 (06:45→22:39)
[2018-05-27 06:51] LABS: Bedside Glucose 198 mg/dL (70-110)
--- NOTE | 2018-05-27 08:46 | PCM.PROGNOTE ---
Patient Problems: Active and Suspected Problems Wound dehiscence (Acute) Subjective: Chief complaint: Follow-up after admission for osteomyelitis of the first metatarsal head with suspected abscess. Patient seen and examined. No acute events overnight. He remains without significant complaints. Right foot pain is well controlled. Denies fever or chills. His vital signs are stable. - Physical Exam General: Alert, Oriented x3, Cooperative, No apparent distress HEENT: Atraumatic, PERRLA, EOMI, Normocephalic Oral: Moist Mucosa, No Gingival or Mucosal Lesions/ Ulcerations Neck: Supple, No JVD, Negative Carotid Bruits, Trachea Midline, Thyroid Normal Size and Texture Lungs: Clear to auscultation, No rhonchi, No wheeze, No rales, Diminished Cardiovascular: Regular rate, Regular Rhythm, Normal S1, Normal S2, No murmurs Abdomen: Bowel Sounds Present, Soft, Non Tender, Non-Distended, No Hepato-splenomegaly Extremities: No clubbing, No cyanosis, No edema Skin: No rashes, No breakdown Lymphatic: No Cervical, Supraclavicular, or Inguinal Adenopathy Neurological: Cranial nerves II-XII grossly intact, Neuro grossly intact Psych/Mental Status: Normal Affect, Appropriate, Alert and oriented to time, place, person, mood and affect Vital Signs Temp Pulse Resp BP Pulse Ox 98.0 F 73 16 145/79 H 96 05/27/18 02:25 05/27/18 02:25 05/27/18 02:25 05/27/18 02:25 05/27/18 02:25 Oxygen Delivery Method Room Air Weight: 265 lb 15.803 oz Body Mass Index (BMI) 35.1 Finger Stick Blood Glucose 165 Intake and Output for Last 24 Hours 05/25/18 05/26/18 05/27/18 23:59 23:59 23:59 Intake Total 1462 / 1462 192 / 192 200 / 200 Balance 1462 / 1462 192 / 192 200 / 200 Microbiology Past 72 Hours 05/25/18 Unknown Gram Stain - Final Tissue - Right Foot Wound Culture - Preliminary Staphylococcus aureus Anaerobic Culture - Final No anaerobic bacteria isolated. 05/25/18 Unknown Gram Stain - Final Bone - Right Foot Wound Culture - Preliminary No growth-Final to follow Anaerobic Culture - Preliminary No growth in 48 hours. 05/25/18 Unknown Gram Stain - Final Bone - Right Foot Wound Culture - Preliminary Staphylococcus aureus Anaerobic Culture - Preliminary No growth in 48 hours. 05/23/18 13:00 Blood Culture - Preliminary Blood Culture (Wb) - Anticubital Left No growth in 48 hours. 05/23/18 12:45 Blood Culture - Preliminary Blood Culture (Wb) - Anticubital Left No growth in 48 hours. 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 #1 Staph aureus acute right foot diabetic infection/osteomyelitis of the first metatarsal head/suspected abscess: Status post incision and drainage of the right foot with partial first ray resection, postoperative day 2. Patient had diabetic foot infection with osteomyelitis of the right hallux for which he underwent amputation, hospital stay complicated by wound infection with MSSA, this was back in March,. Remained on IV cefazolin. His vital signs are stable, afebrile, no leukocytosis. Blood culture showed no growth in 48 hours. Wound and bone cultures revealed staph aureus, final is pending. Podiatry medicine and infectious disease on the case. Plan to continue same treatment, ongoing for delayed closure of the wound tomorrow. #2 type 2 diabetes mellitus: Blood sugar has been stable. Continue Lantus and insulin sliding scale. #3 hypertension: Blood pressure stable, continue losartan and metoprolol. #4 hyperlipidemia: Continue statins. 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 This was held because of surgery. Yesterday's INR is 1.3. Plan to resume Coumadin tomorrow after surgery. #6 history of aortic aneurysm: Status post repair, stable. #7 chronic anemia: It is normocytic anemia likely due to anemia of chronic disease. Baseline hemoglobin has been around 10-11 g/dL. Yesterday's hemoglobin is 10.1 g/dL, stable, asymptomatic. #8 DVT prophylaxis: SCDs. This note was generated with [email or web address] software. It may contain incorrect words, spelling, and punctuation that were not noted in checking the note before signing. Code Visit Inpatient E&M: 52578 Subs Hosp L2
--- NOTE | 2018-05-27 08:50 | PN_ITS ---
Patient Problems: Active and Suspected Problems Wound dehiscence (Acute) Subjective: Chief complaint: Follow-up after admission for osteomyelitis of the first metatarsal head with suspected abscess. Patient seen and examined. No acute events overnight. He remains without significant complaints. Right foot pain is well controlled. Denies fever or chills. His vital signs are stable. - Physical Exam General: Alert, Oriented x3, Cooperative, No apparent distress HEENT: Atraumatic, PERRLA, EOMI, Normocephalic Oral: Moist Mucosa, No Gingival or Mucosal Lesions/ Ulcerations Neck: Supple, No JVD, Negative Carotid Bruits, Trachea Midline, Thyroid Normal Size and Texture Lungs: Clear to auscultation, No rhonchi, No wheeze, No rales, Diminished Cardiovascular: Regular rate, Regular Rhythm, Normal S1, Normal S2, No murmurs Abdomen: Bowel Sounds Present, Soft, Non Tender, Non-Distended, No Hepato- splenomegaly Extremities: No clubbing, No cyanosis, No edema Skin: No rashes, No breakdown Lymphatic: No Cervical, Supraclavicular, or Inguinal Adenopathy Neurological: Cranial nerves II-XII grossly intact, Neuro grossly intact Psych/Mental Status: Normal Affect, Appropriate, Alert and oriented to time, place, person, mood and affect Vital Signs Temp Pulse Resp BP Pulse Ox 98.0 F 73 16 145/79 H 96 05/27/18 02:25 05/27/18 02:25 05/27/18 02:25 05/27/18 02:25 05/27/18 02:25 Oxygen Delivery Method Room Air Weight: 265 lb 15.803 oz Body Mass Index (BMI) 35.1 Finger Stick Blood Glucose 165 Intake and Output for Last 24 Hours 05/25/18 05/26/18 05/27/18 23:59 23:59 23:59 Intake Total 1462 / 1462 192 / 192 200 / 200 Balance 1462 / 1462 192 / 192 200 / 200 Microbiology Past 72 Hours 05/25/18 Unknown Gram Stain - Final Tissue - Right Foot Wound Culture - Preliminary Staphylococcus aureus Anaerobic Culture - Final No anaerobic bacteria isolated. 05/25/18 Unknown Gram Stain - Final Bone - Right Foot Wound Culture - Preliminary No growth-Final to follow Anaerobic Culture - Preliminary No growth in 48 hours. 05/25/18 Unknown Gram Stain - Final Bone - Right Foot Wound Culture - Preliminary Staphylococcus aureus Anaerobic Culture - Preliminary No growth in 48 hours. 05/23/18 13:00 Blood Culture - Preliminary Blood Culture (Wb) - Anticubital Left No growth in 48 hours. 05/23/18 12:45 Blood Culture - Preliminary Blood Culture (Wb) - Anticubital Left No growth in 48 hours. 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 #1 Staph aureus acute right foot diabetic infection/osteomyelitis of the first metatarsal head/suspected abscess: Status post incision and drainage of the right foot with partial first ray resection, postoperative day 2. Patient had diabetic foot infection with osteomyelitis of the right hallux for which he underwent amputation, hospital stay complicated by wound infection with MSSA, this was back in March,. Remained on IV cefazolin. His vital signs are stable, afebrile, no leukocytosis. Blood culture showed no growth in 48 hours. Wound and bone cultures revealed staph aureus, final is pending. Podiatry medicine and infectious disease on the case. Plan to continue same treatment, ongoing for delayed closure of the wound tomorrow. #2 type 2 diabetes mellitus: Blood sugar has been stable. Continue Lantus and insulin sliding scale. #3 hypertension: Blood pressure stable, continue losartan and metoprolol. #4 hyperlipidemia: Continue statins. 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 This was held because of surgery. Yesterday's INR is 1.3. Plan to resume Coumadin tomorrow after surgery. #6 history of aortic aneurysm: Status post repair, stable. #7 chronic anemia: It is normocytic anemia likely due to anemia of chronic disease. Baseline hemoglobin has been around 10-11 g/dL. Yesterday's hemoglobin is 10.1 g/dL, stable, asymptomatic. #8 DVT prophylaxis: SCDs. This note was generated with [employer] software. It may contain incorrect words, spelling, and punctuation that were not noted in checking the note before signing. Code Visit Inpatient E&M: 04810 Subs Hosp L2
[2018-05-27] MEDS: Aspirin 81 MG TAB.CHEW PO (08:55)
[2018-05-27 08:58] VITALS: BP 120/62; PULSE 79; RESP 18; TEMP 37; O2SAT 94
[2018-05-27 09:10] VITALS: BP 120/62; PULSE 79
[2018-05-27] MEDS: Losartan Potassium 100 MG Tablet PO (09:10)
[2018-05-27] MEDS: Metoprolol(XL)Succ 200 MG Tablet PO (09:10)
[2018-05-27] MEDS: Famotidine 20 MG Tablet PO ×2 (09:10→22:40)
[2018-05-27] MEDS: Senna/Docusate Sodium 1 Tablet 2 TABLET PO ×2 (09:10→22:40)
[2018-05-27] MEDS: Glucerna Shake 120 ML LIQUID PO ×3 (09:12→22:38)
--- NOTE | 2018-05-27 10:32 | PCM.PN.ID ---
Patient Problems: Active and Suspected Problems Wound dehiscence (Acute) Subjective: Feeling ok, no fever, no n/v/d. - Physical Exam General: Alert, Cooperative, No apparent distress Lungs: Clear to auscultation, Normal air movement Cardiovascular: Regular rate, Regular Rhythm Abdomen: Soft, Non Tender, Non-Distended Skin: Ulcer/ Wound - foot wrapped Vital Signs Temp Pulse Resp BP Pulse Ox 98.6 F 79 18 120/62 94 05/27/18 08:58 05/27/18 09:10 05/27/18 08:58 05/27/18 09:10 05/27/18 08:58 Oxygen Delivery Method Room Air Weight: 120.65 kg Body Mass Index (BMI) 35.1 Finger Stick Blood Glucose 165 Intake and Output for Last 24 Hours 05/25/18 05/26/18 05/27/18 23:59 23:59 23:59 Intake Total 1462 / 1462 1928 / 1928 200 / 200 Balance 1462 / 1462 1928 / 1928 200 / 200 Microbiology Past 72 Hours 05/25/18 Unknown Gram Stain - Final Tissue - Right Foot Wound Culture - Preliminary Staphylococcus aureus Anaerobic Culture - Final No anaerobic bacteria isolated. 05/25/18 Unknown Gram Stain - Final Bone - Right Foot Wound Culture - Preliminary No growth-Final to follow Anaerobic Culture - Preliminary No growth in 48 hours. 05/25/18 Unknown Gram Stain - Final Bone - Right Foot Wound Culture - Preliminary Staphylococcus aureus Anaerobic Culture - Preliminary No growth in 48 hours. 05/23/18 13:00 Blood Culture - Preliminary Blood Culture (Wb) - Anticubital Left No growth in 48 hours. 05/23/18 12:45 Blood Culture - Preliminary Blood Culture (Wb) - Anticubital Left No growth in 48 hours. POC Glucose 05/27/18 05/26/18 05/26/18 06:43 21:51 16:15 POC Glucose 198 H 221 H 213 H 05/26/18 11:34 POC Glucose 262 H Medical Necessity - Tobacco Use Smoking Status: Never smoker Route of nutrition/ use of supplements: [] Nutritional Intake: [] IV Site: [] Rodrigues Catheter: [] - Assessment/Plan Antibiotics: [] Assessment/Plan: [] Active and Suspected Problems Wound dehiscence (Acute) R 1st metatarsal MSSA osteo and abscess s/p 03/[address] Obregon. Now s/p 1st metatarsal resection 05/25/18. Bone cx with staph aureus. Plan is for 6-8 weeks of iv cefazolin via picc, stop date for 6 weeks will be 07/06/18. Weekly bmp, cbc, and esr while on iv abx. Could change to po abx prior to course completion. Will follow, d/w primary team. Wrote rx for abx and labs. Will order picc.
--- NOTE | 2018-05-27 11:34 | NURSING ---
telegrapher agent called to notify of PICC line order. States there is a nurse in house already and she will be up to insert line when finished in another dept. Patient and primary RN aware.
[2018-05-27 11:40] LABS: Bedside Glucose 218 mg/dL (70-110)
--- NOTE | 2018-05-27 11:41 | NURSING ---
Dr Obregon has been doing dressing changes daily with wound irrigation. will assist as needed. plan is for patient to go back to surgery tomorrow.
[2018-05-27 13:15] VITALS: BP 131/61; PULSE 76; RESP 16; TEMP 36.6; O2SAT 98
[2018-05-27] MEDS: Magnesium Hydroxide 30 ML UDC PO (13:22)
--- NOTE | 2018-05-27 15:18 | PCM.PN.SRG ---
Patient Problems: Active and Suspected Problems Wound dehiscence (Acute) Subjective: patient seen this afternoon. resting comfortably. denies n/v/f/c. Objective: surgical incision packed open with no drainage. good granulation tissue noted within amputation site. mild maceration at site of prior ulceration. no signs of infection were present. pre-lavage culture with + staph aureus. - Physical Exam Vital Signs Temp Pulse Resp BP Pulse Ox 97.8 F 76 16 131/61 H 98 05/27/18 13:15 05/27/18 13:15 05/27/18 13:15 05/27/18 13:15 05/27/18 13:15 Oxygen Delivery Method Room Air Weight: 120.65 kg Body Mass Index (BMI) 35.1 Finger Stick Blood Glucose 165 Intake and Output for Last 24 Hours 05/25/18 05/26/18 05/27/18 23:59 23:59 23:59 Intake Total 1462 / 1462 1928 / 1928 800 / 800 Balance 1462 / 1462 1928 / 1928 800 / 800 Microbiology Past 72 Hours 05/25/18 Unknown Gram Stain - Final Tissue - Right Foot Wound Culture - Preliminary Staphylococcus aureus Anaerobic Culture - Final No anaerobic bacteria isolated. 05/25/18 Unknown Gram Stain - Final Bone - Right Foot Wound Culture - Preliminary No growth-Final to follow Anaerobic Culture - Preliminary No growth in 48 hours. 05/25/18 Unknown Gram Stain - Final Bone - Right Foot Wound Culture - Preliminary Staphylococcus aureus Anaerobic Culture - Preliminary No growth in 48 hours. 05/23/18 13:00 Blood Culture - Preliminary Blood Culture (Wb) - Anticubital Left No growth in 48 hours. 05/23/18 12:45 Blood Culture - Preliminary Blood Culture (Wb) - Anticubital Left No growth in 48 hours. POC Glucose 05/27/18 05/27/18 05/26/18 11:32 06:43 21:51 POC Glucose 218 H 198 H 221 H 05/26/18 16:15 POC Glucose 213 H Medical Necessity - Tobacco Use Smoking Status: Never smoker Assessment/Plan All Active Problems Wound dehiscence (Acute) H/O aortic valve repair (Resolved) H/O thoracic aortic aneurysm repair (Resolved) Nausea (Resolved) PAF (paroxysmal atrial fibrillation) (Resolved) patient wound was irrigated today. foot appears stable. patient on antibiotics per ID and plan is to continue until 07/06. will plan for closure tomorrow. discussed risks of surgery not limited to infection, pain, swelling, bleeding, further amputation, loss of leg. patient is scheduled for surgery tomorrow at 11:30. will evalutae patient on . possible discharge on if looking stable.
--- NOTE | 2018-05-27 16:25 | CASEMGMT ---
JACEY MASON received script for IV ATBs. Referral sent to [facility]. JACEY MASON updated patient. Patient requesting change in HHC to [facility]. Referral sent to [facility] with acceptance. Discharge planned for to home with [facility] and IV ATB. JACEY MASON will continue to monitor this patient and plan for a safe discharge.
[2018-05-27 17:26] LABS: Bedside Glucose 212 mg/dL (70-110)
[2018-05-27 21:48] VITALS: BP 137/74; PULSE 77; RESP 16; TEMP 36.7; O2SAT 94
[2018-05-27] MEDS: Atorvastatin Calcium 40 MG Tablet PO (22:40)
[2018-05-27 23:06] LABS: Bedside Glucose 230 mg/dL (70-110)
[2018-05-28] VITALS (10 sets, daily range): BP systolic 98–141; BP diastolic 58–81; PULSE 67–76; RESP 14–18; TEMP 36.4–37.3; O2SAT 92–98; BMI 35.1
--- NOTE | 2018-05-28 | BON_PTH ---
PATIENT: RICHARD ROY LOC: MS3 U#:[id number] AGE/SX: 72/M ROOM: [facility] RE05/22/[address]: Dr. Bear Nolan MD : 1945 BED: 1 DIS: 05/29/2018 SPEC #: [id number] RECD: 05/29/18 12:34 STATUS: VINNIE REQ #: [id number] CAMILA: 05/28/18 00:[address]: Zachary Obregon DEPT: SURGICAL PATHOLOGY RECD BY: Asaf Esteban ENTERED: 05/29/18 12:34 SP TYPE: Bone OTHR DR: MD Dr. Chidi Gannon III, MD Dr. Ghasem E Ashelfah, MD Dr. Matthew Testrake, DPM Dr. 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 SJ:radhika 06/04/18 MICROSCOPIC DESCRIPTION Slides are reviewed. GROSS DESCRIPTION Received in fixative is one container labeled with the patient's name and designated pre-lavage right first metatarsal bone. The specimen consists of an irregular fragment of dark rivas bone measuring 1 x 0.5 x 0.2 cm. The specimen is totally submitted in one cassette after decalcification. / AM:sp 05/29/18 TC:5 CPT: 51635, 42896
--- NOTE | 2018-05-28 00:08 | NURSING ---
Dr. Obregon called at 2129 to make sure I made the Patient NPO for surgery tomorrow at 11:30 and check up on how he is doing.
[2018-05-28] MEDS: Cefazolin 2 GM in 0.9% Normal Saline 100 ML IV ×3 (05:50→21:13)
[2018-05-28] MEDS: 0.9% NaCl Peripheral Flush Adult/Peds IV ×3 (05:51→16:32)
[2018-05-28 05:57] LABS: Absolute Lymphocyte Count 2.15 X10^3/ul (0.83-4.51); Basophil# 0.01 X10^3/uL; Basophil% 0.1 % (0-1); Eosinophil# 0.52 X10^3/uL; Eosinophils% 4.9 % (0-5); Hematocrit 33.3 % (40-54); Hemoglobin 10.4 g/dl (13.0-16.5); Lymphocyte # 2.15 X10^3/ul (4.0); Lymphocyte % 20.3 % (19-41); Mean Corp Hgb Conc 31.2 g/gl (32-36); Mean Corpuscular Hgb 26.6 pg (27.0-32.0); Mean Corpuscular Volume 85.2 fL (80-94); Mean Platelet Vol. 8.7 fl (6.2-12.0); Monocyte# 0.81 X10^3/uL; Monocyte% 7.7 % (0-10); Neutrophil # 7.01 X10^3/uL (2.7-7.7); Neutrophil % 66.3 % (47-70); Platelet Count 276 K/mm3 (150-450); RBC Distribution Width CV 14.2 % (11.6-14.6); RBC Distribution Width SD 43.9 fl (35.1-43.9); Red Blood Count 3.91 M/mm3 (4.6-6.2); White Blood Count 10.6 K/mm3 (4.4-11.0)
[2018-05-28 06:05] LABS: POSITIVE COUNT NO; POSITIVE DIFFERENTIAL NO; POSITIVE MORPHOLOGY NO
--- NOTE | 2018-05-28 06:14 | PCM.PN.SRG ---
Patient Problems: Active and Suspected Problems Wound dehiscence (Acute) Subjective: Patient was seen this morning. patient denies pain, n/v/f/c. tolerating antibiotics. anticipating surgery for closure of wound today. Objective: patient is alert and orientated x3. He does not appear in any distress. surgical incision is packed open. there is no erythema present to right foot. there is no drainage present. skin edges proximally and centrally appear healthy. there is some mild thickening of distal incision but this is expected to be debulked in surgery. wound cultures of pre-lavage MSSA. wound cultures of post-lavage cultures no growth. pathology is still pending. - Physical Exam Vital Signs Temp Pulse Resp BP Pulse Ox 98.6 F 74 16 119/81 H 97 05/28/18 03:23 05/28/18 03:23 05/28/18 03:23 05/28/18 03:23 05/28/18 03:23 Oxygen Delivery Method Room Air Weight: 120.65 kg Body Mass Index (BMI) 35.1 Finger Stick Blood Glucose 165 Intake and Output for Last 24 Hours 05/26/18 05/27/18 05/28/18 23:59 23:59 23:59 Intake Total 1927 / 1928 1300 / 1300 500 / 500 Balance 192 / 1928 1300 / 1300 500 / 500 Microbiology Past 72 Hours 05/25/18 Unknown Gram Stain - Final Tissue - Right Foot Wound Culture - Preliminary Staphylococcus aureus Anaerobic Culture - Final No anaerobic bacteria isolated. 05/25/18 Unknown Gram Stain - Final Bone - Right Foot Wound Culture - Preliminary No growth-Final to follow Anaerobic Culture - Preliminary No growth in 48 hours. 05/25/18 Unknown Gram Stain - Final Bone - Right Foot Wound Culture - Preliminary Staphylococcus aureus Anaerobic Culture - Preliminary No growth in 48 hours. 05/23/18 13:00 Blood Culture - Preliminary Blood Culture (Wb) - Anticubital Left No growth in 48 hours. 05/23/18 12:45 Blood Culture - Preliminary Blood Culture (Wb) - Anticubital Left No growth in 48 hours. Laboratory Tests Past 24 Hrs 05/28/18 05/28/18 05:35 05:35 WBC 10.6 RBC 3.91 L Hgb 10.4 L Hct 33.3 L MCV 85.2 MCH 26.6 L MCHC 31.2 L RDW 14.2 RDW Differential 43.9 Plt Count 276 MPV 8.7 Immature Gran % (Auto) 0.700 Neut % (Auto) 66.3 Lymph % (Auto) 20.3 [place] % (Auto) 7.7 Eos % (Auto) 4.9 Baso % (Auto) 0.1 Absolute Neuts (auto) 7.0 Absolute Lymphs (auto) 2.15 Total Counted Not Reportable Sodium Pending Potassium Pending Chloride Pending Carbon Dioxide Pending Anion Gap Pending BUN Pending Creatinine Pending Est GFR (MDRD) Af Amer Pending Est GFR (MDRD) Non-Af Pending BUN/Creatinine Ratio Pending Glucose Pending Calcium Pending POC Glucose 05/27/18 05/27/18 05/27/18 22:13 16:44 11:32 POC Glucose 230 H 212 H 218 H 05/27/18 06:43 POC Glucose 198 H Medical Necessity - Tobacco Use Smoking Status: Never smoker Assessment/Plan All Active Problems Wound dehiscence (Acute) H/O aortic valve repair (Resolved) H/O thoracic aortic aneurysm repair (Resolved) Nausea (Resolved) PAF (paroxysmal atrial fibrillation) (Resolved) patient is scheduled for delayed closure today. will debride tissue as necessary and perform closure. patient is on antibiotics and scheduled to be so until 07/06. will evaluate patient tomorrow. if foot appears stable as expected, can arrange discharge with close follow-up in my outpatient clinic. patient informed of risks of procedure not limited to infection, pain, swelling, bleeding, wound dehiscence, need for advanced wound care, need for further amputation. patient understands these risks. he consents to proceed. following surgery, he will be wearing surgical shoe and is expected to apply weight to heel.
[2018-05-28 06:19] LABS: Anion Gap 7 (5-15); BUN 23 mg/dL (7-18); BUN/Creat Ratio 18.7 RATIO (10-20); Calcium,Total 8.8 mg/dL (8.5-10.1); Chloride 103 mmol/L (98-107); Creatinine, Serum 1.23 mg/dL (0.70-1.30); EST Glomerular Filtration Rate 62 mL/min (>60); Est Glom Filt Rate - Afr Amer 75 mL/min (>60); Estimated Creatinine Clearance 63.15 ml/min; Glucose 165 mg/dL (74-106); Potassium 4.3 mmol/L (3.5-5.1); Sodium Level 140 mmol/L (136-145)
[2018-05-28 06:56] LABS: Bedside Glucose 207 mg/dL (70-110)
--- NOTE | 2018-05-28 08:08 | NURSING ---
Pt going to OR today with Dr Obregon. Dressing left in place at this time.
--- NOTE | 2018-05-28 08:24 | PCM.PROGNOTE ---
Patient Problems: Active and Suspected Problems Wound dehiscence (Acute) Subjective: Chief complaint: Follow-up after admission for osteomyelitis of the first metatarsal head with suspected abscess. Patient seen and examined. No acute events overnight. He denied any significant complaints. His vital signs are stable, afebrile. - Physical Exam General: Alert, Oriented x3, Cooperative, No apparent distress HEENT: Atraumatic, PERRLA, EOMI, Normocephalic Oral: Moist Mucosa, No Gingival or Mucosal Lesions/ Ulcerations Neck: Supple, No JVD, Negative Carotid Bruits, Trachea Midline, Thyroid Normal Size and Texture Lungs: Clear to auscultation, Normal air movement, No rhonchi, No wheeze, No rales Cardiovascular: Regular rate, Regular Rhythm, Normal S1, Normal S2, PMI Normal Abdomen: Bowel Sounds Present, Soft, Non Tender, Non-Distended, No Hepato-splenomegaly Extremities: No clubbing, No cyanosis, No edema Skin: No rashes, Ulcer/ Wound - Right foot dressed. Lymphatic: No Cervical, Supraclavicular, or Inguinal Adenopathy Neurological: Cranial nerves II-XII grossly intact, Neuro grossly intact Psych/Mental Status: Normal Affect, Appropriate, Alert and oriented to time, place, person, mood and affect Vital Signs Temp Pulse Resp BP Pulse Ox 98.6 F 74 16 119/81 H 97 05/28/18 03:23 05/28/18 03:23 05/28/18 03:23 05/28/18 03:23 05/28/18 03:23 Oxygen Delivery Method Room Air Weight: 265 lb 15.803 oz Body Mass Index (BMI) 35.1 Finger Stick Blood Glucose 165 Intake and Output for Last 24 Hours 05/26/18 05/27/18 05/28/18 23:59 23:59 23:59 Intake Total 1927 1300 / 1300 500 / 500 Balance 1927 1300 / 1300 500 / 500 Microbiology Past 72 Hours 05/25/18 Unknown Gram Stain - Final Bone - Right Foot Wound Culture - Preliminary No growth aerobically. Anaerobic Culture - Preliminary No growth in 48 hours. 05/25/18 Unknown Gram Stain - Final Tissue - Right Foot Wound Culture - Preliminary Staphylococcus aureus Anaerobic Culture - Final No anaerobic bacteria isolated. 05/25/18 Unknown Gram Stain - Final Bone - Right Foot Wound Culture - Preliminary Staphylococcus aureus Anaerobic Culture - Preliminary No growth in 48 hours. 05/23/18 13:00 Blood Culture - Preliminary Blood Culture (Wb) - Anticubital Left No growth in 48 hours. 05/23/18 12:45 Blood Culture - Preliminary Blood Culture (Wb) - Anticubital Left No growth in 48 hours. Laboratory Tests Past 24 Hrs 05/28/18 05/28/18 05:35 05:35 WBC 10.6 RBC 3.91 L Hgb 10.4 L Hct 33.3 L MCV 85.2 MCH 26.6 L MCHC 31.2 L RDW 14.2 RDW Differential 43.9 Plt Count 276 MPV 8.7 Immature Gran % (Auto) 0.700 Neut % (Auto) 66.3 Lymph % (Auto) 20.3 [place] % (Auto) 7.7 Eos % (Auto) 4.9 Baso % (Auto) 0.1 Absolute Neuts (auto) 7.0 Absolute Lymphs (auto) 2.15 Total Counted Not Reportable Sodium 140 Potassium 4.3 Chloride 103 Carbon Dioxide 30.0 Anion Gap 7 BUN 23 H Creatinine 1.23 Estim Creat Clear Calc 63.15 Est GFR (MDRD) Af Amer 75 Est GFR (MDRD) Non-Af 62 BUN/Creatinine Ratio 18.7 Glucose 165 H Calcium 8.8 POC Glucose 05/28/18 05/27/18 05/27/18 06:49 22:13 16:44 POC Glucose 207 H 230 H 212 H 05/27/18 11:32 POC Glucose 218 H Medical Necessity - Tobacco Use Smoking Status: Never smoker Assessment/Plan All Active Problems Wound dehiscence (Acute) H/O aortic valve repair (Resolved) H/O thoracic aortic aneurysm repair (Resolved) Nausea (Resolved) PAF (paroxysmal atrial fibrillation) (Resolved) This is a 72 years old male patient was 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 #1 Staph aureus acute right foot diabetic infection/osteomyelitis of the first metatarsal head/suspected abscess: Status post incision and drainage of the right foot with partial first ray resection, postoperative day 3. Patient is asymptomatic, pain is well controlled. His vital signs are stable, afebrile. Remained on IV cefazolin. His vital signs are stable, afebrile, no leukocytosis. Blood culture showed no growth in 48 hours. Wound and bone cultures revealed staph aureus, final is pending. Podiatry medicine and infectious disease on the case. Patient is going for surgery today for delayed closure. Patient will need long-term IV antibiotics according to infectious disease. #2 type 2 diabetes mellitus: Blood sugar has been stable. Continue Lantus and insulin sliding scale. #3 hypertension: Blood pressure stable, continue losartan and metoprolol. #4 hyperlipidemia: Continue statins. 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 This was held because of surgery. Most recent INR is 1.3. Plan to keep holding Coumadin, repeat INR tomorrow morning. #6 history of aortic aneurysm: Status post repair, stable. #7 chronic anemia: It is normocytic anemia likely due to anemia of chronic disease. Baseline hemoglobin has been around 10-11 g/dL. Today's hemoglobin is 10.4 g/dL, stable. #8 DVT prophylaxis: SCDs. This note was generated with [employer] dictation software. It may contain incorrect words, spelling, and punctuation that were not noted in checking the note before signing. Code Visit Inpatient E&M: 00500 Subs Hosp L2
--- NOTE | 2018-05-28 08:28 | PN_ITS ---
Patient Problems: Active and Suspected Problems Wound dehiscence (Acute) Subjective: Chief complaint: Follow-up after admission for osteomyelitis of the first metatarsal head with suspected abscess. Patient seen and examined. No acute events overnight. He denied any significant complaints. His vital signs are stable, afebrile. - Physical Exam General: Alert, Oriented x3, Cooperative, No apparent distress HEENT: Atraumatic, PERRLA, EOMI, Normocephalic Oral: Moist Mucosa, No Gingival or Mucosal Lesions/ Ulcerations Neck: Supple, No JVD, Negative Carotid Bruits, Trachea Midline, Thyroid Normal Size and Texture Lungs: Clear to auscultation, Normal air movement, No rhonchi, No wheeze, No rales Cardiovascular: Regular rate, Regular Rhythm, Normal S1, Normal S2, PMI Normal Abdomen: Bowel Sounds Present, Soft, Non Tender, Non-Distended, No Hepato- splenomegaly Extremities: No clubbing, No cyanosis, No edema Skin: No rashes, Ulcer/ Wound - Right foot dressed. Lymphatic: No Cervical, Supraclavicular, or Inguinal Adenopathy Neurological: Cranial nerves II-XII grossly intact, Neuro grossly intact Psych/Mental Status: Normal Affect, Appropriate, Alert and oriented to time, place, person, mood and affect Vital Signs Temp Pulse Resp BP Pulse Ox 98.6 F 74 16 119/81 H 97 05/28/18 03:23 05/28/18 03:23 05/28/18 03:23 05/28/18 03:23 05/28/18 03:23 Oxygen Delivery Method Room Air Weight: 265 lb 15.803 oz Body Mass Index (BMI) 35.1 Finger Stick Blood Glucose 165 Intake and Output for Last 24 Hours 05/26/18 05/27/18 05/28/18 23:59 23:59 23:59 Intake Total 1927 1300 / 1300 500 / 500 Balance 1927 1300 / 1300 500 / 500 Microbiology Past 72 Hours 05/25/18 Unknown Gram Stain - Final Bone - Right Foot Wound Culture - Preliminary No growth aerobically. Anaerobic Culture - Preliminary No growth in 48 hours. 05/25/18 Unknown Gram Stain - Final Tissue - Right Foot Wound Culture - Preliminary Staphylococcus aureus Anaerobic Culture - Final No anaerobic bacteria isolated. 05/25/18 Unknown Gram Stain - Final Bone - Right Foot Wound Culture - Preliminary Staphylococcus aureus Anaerobic Culture - Preliminary No growth in 48 hours. 05/23/18 13:00 Blood Culture - Preliminary Blood Culture (Wb) - Anticubital Left No growth in 48 hours. 05/23/18 12:45 Blood Culture - Preliminary Blood Culture (Wb) - Anticubital Left No growth in 48 hours. Laboratory Tests Past 24 Hrs 05/28/18 05/28/18 05:35 05:35 WBC 10.6 RBC 3.91 L Hgb 10.4 L Hct 33.3 L MCV 85.2 MCH 26.6 L MCHC 31.2 L RDW 14.2 RDW Differential 43.9 Plt Count 276 MPV 8.7 Immature Gran % (Auto) 0.700 Neut % (Auto) 66.3 Lymph % (Auto) 20.3 [place] % (Auto) 7.7 Eos % (Auto) 4.9 Baso % (Auto) 0.1 Absolute Neuts (auto) 7.0 Absolute Lymphs (auto) 2.15 Total Counted Not Reportable Sodium 140 Potassium 4.3 Chloride 103 Carbon Dioxide 30.0 Anion Gap 7 BUN 23 H Creatinine 1.23 Estim Creat Clear Calc 63.15 Est GFR (MDRD) Af Amer 75 Est GFR (MDRD) Non-Af 62 BUN/Creatinine Ratio 18.7 Glucose 165 H Calcium 8.8 POC Glucose 05/28/18 05/27/18 05/27/18 06:49 22:13 16:44 POC Glucose 207 H 230 H 212 H 05/27/18 11:32 POC Glucose 218 H Medical Necessity - Tobacco Use Smoking Status: Never smoker Assessment/Plan All Active Problems Wound dehiscence (Acute) H/O aortic valve repair (Resolved) H/O thoracic aortic aneurysm repair (Resolved) Nausea (Resolved) PAF (paroxysmal atrial fibrillation) (Resolved) This is a 72 years old male patient was 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 #1 Staph aureus acute right foot diabetic infection/osteomyelitis of the first metatarsal head/suspected abscess: Status post incision and drainage of the right foot with partial first ray resection, postoperative day 3. Patient is asymptomatic, pain is well controlled. His vital signs are stable, afebrile. Remained on IV cefazolin. His vital signs are stable, afebrile, no leukocytosis. Blood culture showed no growth in 48 hours. Wound and bone cultures revealed staph aureus, final is pending. Podiatry medicine and infectious disease on the case. Patient is going for surgery today for delayed closure. Patient will need long-term IV antibiotics according to infectious disease. #2 type 2 diabetes mellitus: Blood sugar has been stable. Continue Lantus and insulin sliding scale. #3 hypertension: Blood pressure stable, continue losartan and metoprolol. #4 hyperlipidemia: Continue statins. 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 This was held because of surgery. Most recent INR is 1.3. Plan to keep holding Coumadin, repeat INR tomorrow morning. #6 history of aortic aneurysm: Status post repair, stable. #7 chronic anemia: It is normocytic anemia likely due to anemia of chronic disease. Baseline hemoglobin has been around 10-11 g/dL. Today's hemoglobin is 10.4 g/dL, stable. #8 DVT prophylaxis: SCDs. This note was generated with [employer] dictation software. It may contain incorrect words, spelling, and punctuation that were not noted in checking the note before signing. Code Visit Inpatient E&M: 84569 Subs Hosp L2
[2018-05-28] MEDS: Metoprolol(XL)Succ 200 MG Tablet PO (10:12)
[2018-05-28] MEDS: Famotidine 20 MG Tablet PO ×2 (10:12→21:13)
[2018-05-28] MEDS: Losartan Potassium 100 MG Tablet PO (10:12)
[2018-05-28] MEDS: Insulin Lispro 100 UNIT/ML INSULN.PEN SQ ×3 (10:13→21:14)
[2018-05-28 10:30] LABS: Bedside Glucose 188 mg/dL (70-110)
--- NOTE | 2018-05-28 12:00 | RAD_ITS ---
STUDY: X-RAY - RIGHT FOOT CLINICAL: Male, 72 years old. Wound closure. TECHNIQUE: Fluoroscopic assistance was provided to Dr. Sharma. 5 intraprocedural fluoroscopic spot view(s) of the foot are submitted. FLUOROSCOPY TIME: 25 seconds. 4.3584 cGy*cm2 COMPARISON: 2 portable views of the right foot May 25, 2018. FINDINGS: Again seen is prior amputation through the mid first metatarsal Normal second through fifth metatarsophalangeal joints. Normal visualized interphalangeal joints and phalanges of the lesser toes. There is deformity of the distal medial soft tissues of the foot overlying the first metatarsal amputation site, in part related to the surgical wound. In some images, a radiopaque device is seen along the septation margin of the first metatarsal. RAD/Foot min 3 Views IMPRESSION: Fluoroscopic guidance for wound closure of right foot. Prior amputation of the first metatarsal again noted. Electronically Signed: Manan Wilcox MD at 12:09 EST , Service support ,
--- NOTE | 2018-05-28 13:50 | OP.PN_ITS ---
Immediate Post-Op Note Date of Procedure: 05/28/18 Primary Surgeon/Physician: Zachary Obregon DPM passenger representative: none Pre-Operative Diagnosis: diabetic foot infection with osteomyelitis right foot Post-Operative Diagnosis: diabetic foot infection with osteomyelitis, right 1st metatarsal Surgery/Procedure Performed:: delayed closure of wound, right foot Description of Surgical Findings:: good clean tissue with no signs of purulence incision completely closed without tension Estimated Blood Loss: 5 cc Specimen's removed: first metatarsal head, right foot Drains: plain packing Type of Anesthesia:: Local MAC
[2018-05-28] MEDS: Glucerna Shake 120 ML LIQUID PO ×3 (14:51→21:14)
[2018-05-28 16:50] LABS: Bedside Glucose 154 mg/dL (70-110)
--- NOTE | 2018-05-28 20:35 | OP.PCM_ITS ---
Report of Operation Date of Procedure: 05/28/18 Pre-Operative Diagnosis: diabetic foot infection with osteomyelitis right foot Post-Operative Diagnosis: diabetic foot infection with osteomyelitis, right 1st metatarsal Surgery/Procedure Performed:: delayed closure of wound, right foot Description of Surgical Findings:: good clean tissue with no signs of purulence incision completely closed without tension configuration management specialist: none Type of Anesthesia:: Local MAC Specimen's removed: first metatarsal head, right foot Drains: plain packing Estimated Blood Loss (mL): 5 cc Description of Procedure: Patient is a very pleasant 72 year old male who underwent partial 1st ray resection of right foot this past saturday. He is showing mssa in pre-lavage bone but thus far, no growth in post-lavage bone. He has open wound of right foot that has been treated by dailypeter with irrigation. He is scheduled for return to operating room today for debridement of nonviable tissue and bone with delayed closure. I informed patient risks of this procedure not limited to infection, pain, swelling, bleeding, hematoma, wound dehiscence, need for advanced wound care, further foot amputation, cardiac arrest, dvt, . I informed patient that following procedure, he will need to remain partial weightbearing to his right heel. Any weight to his foot can result in dehiscence. He understands all risks and consents to proceed. of note, he does have some hardening skin/soft-tissue of distal incision. he understands this will be debrided to allow closure of wound. He also is aware that following procedure, he will likely have post-op drain that will need to be removed. He is scheduled to receive ancef every 8 hours x 6 weeks by Infectious disease. All questions have been answered. no guarantees expressed. patient was transferred from pre-op holding area and placed on the operating room table in the supine position. He was identified by name and procedure. He was placed under mac anesthesia. all remaining suture was removed from his right foot prior to procedure. the right foot was prepped and draped in the usual aseptic technique. Time out was performed making note of procedure and personal involved. Attention was directed to the right foot. there was nonviable/hardening of distal soft-tissue/skin. this was debulked and debrided. Next, attention was directed to the deep subcutaneous tissue. there was good granulation tissue found in the subcutaneous tissue. no purulence was encountered. Attention was directed to the remaining 1st metatarsal. The metatarsal was then smoothed with sagittal saw. a very small resection of bone was removed and sent for pathology and micro. Irrigation was then performed with 3000 cc of normal saline. hemostasis was achieved with cautery and topical thrombin. the surgical incision was closed with 2-0 nylon with combination of s imple interrupted and horizontal mattress. the nylon was thrown from skin to deep subcutaneous tissue to allow approximation with well everted skin edges. The wound edges were closed free of tension. a tls drain was placed percutaneous to aid in post-op blood collection. this drain will be removed in approximately 2 days. A post-op dressing was applied consisting of betadine, adaptic, 4x4 guaze, abd, yu and bernie. patient was awakened and found to be in stable condition. He was transferred to pacu in stable condition. Patient will be readmitted to floor. I will evaluate patient tomorrow and possible discharge on . He will f/u in my outpatient clinic this coming Saturday. Drain will be removed on Saturday if no longer necessary. He will be followed by me weekly.
[2018-05-28] MEDS: Senna/Docusate Sodium 1 Tablet 2 TABLET PO (21:13)
[2018-05-28] MEDS: Atorvastatin Calcium 40 MG Tablet PO (21:13)
[2018-05-28 23:21] LABS: Bedside Glucose 231 mg/dL (70-110)
[2018-05-29 03:01] VITALS: BP 117/67; PULSE 76; RESP 18; TEMP 36.5; O2SAT 96
[2018-05-29] MEDS: 0.9% NaCl Peripheral Flush Adult/Peds IV ×4 (06:27→14:23)
[2018-05-29] MEDS: Cefazolin 2 GM in 0.9% Normal Saline 100 ML IV ×2 (06:27→13:21)
[2018-05-29 06:39] LABS: International Normalized Ratio 1.1; Prothrombin Time (Protime)PT. 14.3 SECONDS (11.7-14.9)
--- NOTE | 2018-05-29 06:57 | PCM.PN.SRG ---
Patient Problems: Active and Suspected Problems Wound dehiscence (Acute) Subjective: patient seen at bedside this am. no complaints. Objective: patient is alert and orientated x 3. no acute distress right foot with dressing clean, dry and intact. no strike-thru. tls drain wtih 7 cc of blood collection. dressing removed with surgical incision approximated nicely without tension. there is no drainage, no redness, no duskyness of incision. skin appears viable. no open sores noted to right foot other than approximated incision. no calf pain to right lower extremity. Left foot with no open sores. - Physical Exam Vital Signs Temp Pulse Resp BP Pulse Ox 97.7 F L 76 18 117/67 96 05/29/18 03:01 05/29/18 03:01 05/29/18 03:01 05/29/18 03:01 05/29/18 03:01 Oxygen Flow Rate (L/min) 2 Oxygen Delivery Method Room Air Weight: 120.65 kg Body Mass Index (BMI) 35.1 Finger Stick Blood Glucose 165 Intake and Output for Last 24 Hours 05/27/18 05/28/18 05/29/18 23:59 23:59 23:59 Intake Total 1300 / 1300 1900 / 1900 200 / 200 Balance 1300 / 1300 1900 / 1900 200 / 200 Microbiology Past 72 Hours 05/23/18 13:00 Blood Culture - Final Blood Culture (Wb) - Anticubital Left No growth in 5 days. 05/23/18 12:45 Blood Culture - Final Blood Culture (Wb) - Anticubital Left No growth in 5 days. 05/25/18 Unknown Gram Stain - Final Bone - Right Foot Wound Culture - Preliminary No growth aerobically. Anaerobic Culture - Preliminary No growth in 48 hours. 05/25/18 Unknown Gram Stain - Final Tissue - Right Foot Wound Culture - Preliminary Staphylococcus aureus Anaerobic Culture - Final No anaerobic bacteria isolated. 05/25/18 Unknown Gram Stain - Final Bone - Right Foot Wound Culture - Preliminary Staphylococcus aureus Anaerobic Culture - Preliminary No growth in 48 hours. Laboratory Tests Past 24 Hrs 05/29/18 06:00 PT 14.3 INR 1.1 POC Glucose 05/28/18 05/28/18 05/28/18 21:07 16:28 10:11 POC Glucose 231 H 154 H 188 H Medical Necessity - Tobacco Use Smoking Status: Never smoker Assessment/Plan All Active Problems Wound dehiscence (Acute) H/O aortic valve repair (Resolved) H/O thoracic aortic aneurysm repair (Resolved) Nausea (Resolved) PAF (paroxysmal atrial fibrillation) (Resolved) patient was examined and informed of current findings dressing removed today and foot appears stable. will keep drain in. possible removal tomorrow or next week dressing applied consisting of betadine, 4x4, yu and lightly applied bernie pre-lavage cultures: Mssa; Post-lavage cultures no growth. patient on ancef until 07/06 ok to resume coumadin today. ok for discharge once medically stable. if discharged today, will f/u in my clinic tomorrow. if patient is not discharged, I will see him here tomorrow. patient is to wear surgical shoe to right foot at all times. ok to ambulate to right heel.
[2018-05-29] MEDS: Insulin Lispro 100 UNIT/ML INSULN.PEN SQ ×2 (06:58→12:02)
[2018-05-29 07:05] LABS: Bedside Glucose 162 mg/dL (70-110)
--- NOTE | 2018-05-29 09:23 | DCINST_ITS ---
- Discharge Diagnoses Current Active Problems: Current Active and Chronic Problems Wound dehiscence (Acute) You will use the following diet at home:: Calorie/Carbohydrate Controlled (specify 1200, 1400, etc) - 1800 justen, Cardiac Your food should be the consistency of: Regular Discharge Activity: Return to Normal Activity Weight Bearing Status: Weight bearing as tolerated, - - Okay to ambulate to right heel according to Dr. Obregon Call your doctor if your incision/area has: Continuous Slow Oozing, Sudden Increased Bleeding, Increased Pain/ Swelling, Increased Redness, Foul Smelling Discharge Call your doctor if you observe: Fever of 101 or Higher, Shortness of breath, Dizziness, Fainting spells, Chest pain, Increased palpitations (irregular heartbeat), Uncontrolled pain Allergies/Adverse Reactions: Allergies propofol Adverse Reaction (Verified 05/22/18 23:27) Other Medications to take at Discharge Metoprolol(XL)Succ [Toprol Xl (Beta Red)] 200 mg PO DAILY 09/16/13 Losartan Potassium 50 mg PO DAILY 03/24/18 Metformin HCl [Metformin HCl ER] 1,000 mg PO BID 03/24/18 Acetaminophen [Tylenol Tablet] 650 mg PO Q6H PRN PRN tablet 04/01/18 Melatonin 10 mg PO QHS PRN PRN tablet 04/01/18 Aspirin [Aspirin, Baby] 81 mg PO DAILY@0800 05/22/18 Atorvastatin Calcium [Lipitor] 40 mg PO QHS 05/22/18 Dulaglutide [Trulicity] 1.5 mg SQ QWEEK 05/22/18 Insulin Glargine [Lantus SoloStar Pen] 22 units SC DAILY 05/22/18 Insulin Lispro [Humalog KwikPen] See Protocol SQ 4X/DAY 05/22/18 Warfarin [Coumadin] 5 mg PO DAILY 05/22/18 Cefazolin 2 gm IV Q8 #120 vial 05/28/18 The following prescriptions were given: Cefazolin 2 gm IV Q8 #120 vial Orders to be completed after discharge: Prothrombin Time w/INR Time Frame: 05/31/18, Location: Laboratory Primary Care Physician: Chidi Christian III, MD [Primary Care Provider] - Please follow up with your Primary Care Physician in: 1 week. Test Results: Test results from this visit will be discussed in further detail at your follow- up appointment, if applicable. Please Follow Up With: Zachary Obregon DPM When: as scheduled tomorrow. Please Follow Up With: Smith Leija MD When: please call his office.
[2018-05-29 09:26] VITALS: BP 136/65; PULSE 83; RESP 18; TEMP 37.1; O2SAT 97
[2018-05-29 09:31] VITALS: PULSE 83
[2018-05-29] MEDS: Glucerna Shake 120 ML LIQUID PO ×2 (09:31→13:22)
[2018-05-29] MEDS: Senna/Docusate Sodium 1 Tablet 2 TABLET PO (09:31)
[2018-05-29] MEDS: Famotidine 20 MG Tablet PO (09:31)
[2018-05-29] MEDS: Losartan Potassium 100 MG Tablet PO (09:31)
[2018-05-29] MEDS: Metoprolol(XL)Succ 200 MG Tablet PO (09:31)
[2018-05-29] MEDS: Aspirin 81 MG TAB.CHEW PO (09:31)
--- NOTE | 2018-05-29 10:39 | PCM.PN.ID ---
Patient Problems: Active and Suspected Problems Wound dehiscence (Acute) Subjective: Feeling good, home today, no fever, no n/v/d - Physical Exam Vital Signs Temp Pulse Resp BP Pulse Ox 98.7 F 83 18 136/65 H 97 05/29/18 09:26 05/29/18 09:31 05/29/18 09:26 05/29/18 09:26 05/29/18 09:26 Oxygen Flow Rate (L/min) 2 Oxygen Delivery Method Room Air Weight: 120.65 kg Body Mass Index (BMI) 35.1 Finger Stick Blood Glucose 165 Intake and Output for Last 24 Hours 05/27/18 05/28/18 05/29/18 23:59 23:59 23:59 Intake Total 1300 / 1300 1900 / 1900 200 / 200 Balance 1300 / 1300 1900 / 1900 200 / 200 Microbiology Past 72 Hours 05/25/18 Unknown Gram Stain - Final Bone - Right Foot Wound Culture - Final No growth aerobically. Anaerobic Culture - Preliminary No growth in 48 hours. 05/28/18 Unknown Gram Stain - Final Bone - Right Foot 05/25/18 Unknown Gram Stain - Final Bone - Right Foot Wound Culture - Final Staphylococcus aureus Anaerobic Culture - Preliminary No growth in 48 hours. 05/25/18 Unknown Gram Stain - Final Tissue - Right Foot Wound Culture - Final Staphylococcus aureus Anaerobic Culture - Final No anaerobic bacteria isolated. 05/23/18 13:00 Blood Culture - Final Blood Culture (Wb) - Anticubital Left No growth in 5 days. 05/23/18 12:45 Blood Culture - Final Blood Culture (Wb) - Anticubital Left No growth in 5 days. Laboratory Tests Past 24 Hrs 05/29/18 06:00 PT 14.3 INR 1.1 POC Glucose 05/29/18 05/28/18 05/28/18 06:56 21:07 16:28 POC Glucose 162 H 231 H 154 H Medical Necessity - Tobacco Use Smoking Status: Never smoker Route of nutrition/ use of supplements: [] Nutritional Intake: [] IV Site: [] Rodrigues Catheter: []
[2018-05-29 12:21] LABS: Bedside Glucose 226 mg/dL (70-110)
--- NOTE | 2018-05-29 14:26 | PCM.DC.SUM ---
Discharge Date and Diagnosis - Problem List Patient Problems: Active and Suspected Problems Wound dehiscence (Acute) Date of Admission: 05/22/18 Date of Discharge: 05/29/18 - Primary Discharge Diagnosis Active and Suspected Problems MSSA acute right foot diabetic infection/osteomyelitis of the first metatarsal head with suspected abscess, status post incision and drainage of the right foot with partial first ray resection as well as delayed closure of the wound. 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 Findings consistent with osteomyelitis of the first metatarsal head. 2. Suspected abscess distal to the first metatarsal head. Electronically Signed: Mila Russell MD at 21:00 EST Tel , Service support , Foot X-Ray 05/25/18 08:00 IMPRESSION: Amputation of the distal first metatarsal in the OR. Electronically Signed: Leighton Fabian DO at 14:19 EST Tel [phone], Service support , Foot X-Ray 05/25/18 10:31 IMPRESSION: As above Electronically Signed: Alejandro Singh DO at 15:25 EST Tel , Service support , Foot X-Ray 05/28/18 12:00 IMPRESSION: Fluoroscopic guidance for wound closure of right foot. Prior amputation of the first metatarsal again noted. Electronically Signed: Manan Wilcox MD at 12:09 EST , Service support , Consultations 05/22/18 14:37 Consult: Onc/Wound/parole supervisor Routine Comment: Reason for Consult:: for poosible woun vac Dr. leija, infectious disease. Dr. Romano,[facility] podiatry medicine. Operations: - - Incision and drainage of the right foot with first ray resection, delayed closure. Summary of Care Provided: Patient seen and examined on the discharge and appeared to be stable for discharge home. He denied any significant complaints. His vital signs were stable. 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 On admission, MRI of the right foot performed and revealed findings consistent with osteomyelitis of the first metatarsal head as well as suspected abscess distal to the first metatarsal head. Podiatry was consulted and patient underwent incision and drainage of the right foot as well as partial first ray resection. Later, patient went for delayed wound closure. He was treated with IV cefazolin. His blood culture showed no growth in 5 days. Right foot wound and bone culture revealed MSSA. Infectious disease consulted and recommended IV antibiotics with IV cefazolin within date of June,. Patient has a history of PE and he has been on long-term Coumadin. During this hospital stay, Coumadin held because patient went for surgery twice and upon discharge, Coumadin restarted. There was no indication for bridging with Lovenox or heparin as patient was allowed to ambulate on his right heel according to the cad developer. Patient discharged home with home health in a stable medical condition, discharged on IV cefazolin 3 times daily with last day of IV cefazolin is July 06, 2018, restarted back on Coumadin same dose, recommended to do pro time and INR tomorrow, follow-up with PCP in 1 week, follow-up with podiatry tomorrow and follow-up with infectious disease according to Dr. Leija recommendation. Patient Problems: Active and Suspected Problems Wound dehiscence (Acute) - Physical Exam General: Alert, Oriented x3, Cooperative, No apparent distress HEENT: Atraumatic, PERRLA, EOMI, Normocephalic Oral: Moist Mucosa, No Gingival or Mucosal Lesions/ Ulcerations Neck: Supple, No JVD, Negative Carotid Bruits, Trachea Midline, Thyroid Normal Size and Texture Lungs: Clear to auscultation, Normal air movement, No rhonchi, No wheeze, No rales Cardiovascular: Regular rate, Regular Rhythm, Normal S1, Normal S2, PMI Normal Abdomen: Bowel Sounds Present, Soft, Non Tender, Non-Distended Extremities: No clubbing, No cyanosis, No edema Skin: No rashes, Ulcer/ Wound Lymphatic: No Cervical, Supraclavicular, or Inguinal Adenopathy Neurological: Cranial nerves II-XII grossly intact, Neuro grossly intact Psych/Mental Status: Normal Affect, Appropriate Vital Signs Temp Pulse Resp BP Pulse Ox 98.7 F 83 18 136/65 H 97 05/29/18 09:26 05/29/18 09:31 05/29/18 09:26 05/29/18 09:26 05/29/18 09:26 Oxygen Flow Rate (L/min) 2 Oxygen Delivery Method Room Air Weight: 265 lb 15.803 oz Body Mass Index (BMI) 35.1 Finger Stick Blood Glucose 165 Intake and Output for Last 24 Hours 05/27/18 05/28/18 05/29/18 23:59 23:59 23:59 Intake Total 1300 / 1300 1900 / 1900 200 / 200 Balance 1300 / 1300 1900 / 1900 200 / 200 Microbiology Past 72 Hours 05/28/18 Unknown Gram Stain - Final Bone - Right Foot Wound Culture - Preliminary Staphylococcus species 05/25/18 Unknown Gram Stain - Final Bone - Right Foot Wound Culture - Final No growth aerobically. Anaerobic Culture - Preliminary No growth in 48 hours. 05/25/18 Unknown Gram Stain - Final Bone - Right Foot Wound Culture - Final Staphylococcus aureus Anaerobic Culture - Preliminary No growth in 48 hours. 05/25/18 Unknown Gram Stain - Final Tissue - Right Foot Wound Culture - Final Staphylococcus aureus Anaerobic Culture - Final No anaerobic bacteria isolated. 05/23/18 13:00 Blood Culture - Final Blood Culture (Wb) - Anticubital Left No growth in 5 days. 05/23/18 12:45 Blood Culture - Final Blood Culture (Wb) - Anticubital Left No growth in 5 days. Laboratory Tests Past 24 Hrs 05/29/18 06:00 PT 14.3 INR 1.1 POC Glucose 05/29/18 05/29/18 05/28/18 11:54 06:56 21:07 POC Glucose 226 H 162 H 231 H 05/28/18 16:28 POC Glucose 154 H Discharge Activity: Return to Normal Activity Weight Bearing Status: Weight bearing as tolerated, - - Okay to ambulate to right heel according to Dr. Obregon Call your doctor if your incision/area has: Continuous Slow Oozing, Sudden Increased Bleeding, Increased Pain/ Swelling, Increased Redness, Foul Smelling Discharge Call your doctor if you observe: Fever of 101 or Higher, Shortness of breath, Dizziness, Fainting spells, Chest pain, Increased palpitations (irregular heartbeat), Uncontrolled pain Home Medications: Medications to take at Discharge Metoprolol(XL)Succ [Toprol Xl (Beta Red)] 200 mg PO DAILY 09/16/13 Losartan Potassium 50 mg PO DAILY 03/24/18 Metformin HCl [Metformin HCl ER] 1,000 mg PO BID 03/24/18 Acetaminophen [Tylenol Tablet] 650 mg PO Q6H PRN PRN tablet 04/01/18 Melatonin 10 mg PO QHS PRN PRN tablet 04/01/18 Aspirin [Aspirin, Baby] 81 mg PO DAILY@0800 05/22/18 Atorvastatin Calcium [Lipitor] 40 mg PO QHS 05/22/18 Dulaglutide [Trulicity] 1.5 mg SQ QWEEK 05/22/18 Insulin Glargine [Lantus SoloStar Pen] 22 units SC DAILY 05/22/18 Insulin Lispro [Humalog KwikPen] See Protocol SQ 4X/DAY 05/22/18 Warfarin [Coumadin] 5 mg PO DAILY 05/22/18 Cefazolin 2 gm IV Q8 #120 vial 05/28/18 Following Prescrptions Were Given to Patient: Cefazolin 2 gm IV Q8 #120 vial Other Amb Orders: Prothrombin Time w/INR Time Frame: 05/31/18, Location: Laboratory Primary Care Physician: Chidi Christian III, MD [Primary Care Provider] - Please follow up with your Primary Care Physician in: 1 week. Please Follow Up With: Zachary Obregon DPM When: as scheduled tomorrow. Please Follow Up With: Smith Leija MD When: please call his office. Disposition: Home with Home Health Minutes spent on discharge:: 33 Patient Condition:: Stable Medical Necessity - Tobacco Use Smoking Status: Never smoker Meaningful Use Info Meaningful Use Diagnoses (Choose all that apply): None applicable Code Visit Inpatient E&M: 56373 Disch Hosp
[2018-05-29 14:28] VITALS: BP 124/67; PULSE 78; RESP 18; TEMP 36.8; O2SAT 97
--- NOTE | 2018-05-29 14:33 | DS.PCM_ITS ---
Discharge Date and Diagnosis - Problem List Patient Problems: Active and Suspected Problems Wound dehiscence (Acute) Date of Admission: 05/22/18 Date of Discharge: 05/29/18 - Primary Discharge Diagnosis Active and Suspected Problems MSSA acute right foot diabetic infection/osteomyelitis of the first metatarsal head with suspected abscess, status post incision and drainage of the right foot with partial first ray resection as well as delayed closure of the wound. 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 Findings consistent with osteomyelitis of the first metatarsal head. 2. Suspected abscess distal to the first metatarsal head. Electronically Signed: Mila Russell MD at 21:00 EST Tel , Service support , Foot X-Ray 05/25/18 08:00 IMPRESSION: Amputation of the distal first metatarsal in the OR. Electronically Signed: Leighton Fabian DO at 14:19 EST Tel [phone], Service support , Foot X-Ray 05/25/18 10:31 IMPRESSION: As above Electronically Signed: Alejandro Singh DO at 15:25 EST Tel , Service support , Foot X-Ray 05/28/18 12:00 IMPRESSION: Fluoroscopic guidance for wound closure of right foot. Prior amputation of the first metatarsal again noted. Electronically Signed: Manan Wilcox MD at 12:09 EST , Service support , Consultations 05/22/18 14:37 Consult: Onc/Wound/head of product Routine Comment: Reason for Consult:: for poosible woun vac Dr. leija, infectious disease. Dr. Romano,[facility] podiatry medicine. Operations: - - Incision and drainage of the right foot with first ray resection, delayed closure. Summary of Care Provided: Patient seen and examined on the discharge and appeared to be stable for discharge home. He denied any significant complaints. His vital signs were stable. 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 On admission, MRI of the right foot performed and revealed findings consistent with osteomyelitis of the first metatarsal head as well as suspected abscess distal to the first metatarsal head. Podiatry was consulted and patient underwent incision and drainage of the right foot as well as partial first ray resection. Later, patient went for delayed wound closure. He was treated with IV cefazolin. His blood culture showed no growth in 5 days. Right foot wound and bone culture revealed MSSA. Infectious disease consulted and recommended IV antibiotics with IV cefazolin within date of June,. Patient has a history of PE and he has been on long-term Coumadin. During this hospital stay, Coumadin held because patient went for surgery twice and upon discharge, Coumadin restarted. There was no indication for bridging with Lovenox or heparin as patient was allowed to ambulate on his right heel according to the research and development engineer. Patient discharged home with home health in a stable medical condition, discharged on IV cefazolin 3 times daily with last day of IV cefazolin is July 06, 2018, restarted back on Coumadin same dose, recommended to do pro time and INR tomorrow, follow-up with PCP in 1 week, follow-up with podiatry tomorrow and follow-up with infectious disease according to Dr. Leija recommendation. Patient Problems: Active and Suspected Problems Wound dehiscence (Acute) - Physical Exam General: Alert, Oriented x3, Cooperative, No apparent distress HEENT: Atraumatic, PERRLA, EOMI, Normocephalic Oral: Moist Mucosa, No Gingival or Mucosal Lesions/ Ulcerations Neck: Supple, No JVD, Negative Carotid Bruits, Trachea Midline, Thyroid Normal Size and Texture Lungs: Clear to auscultation, Normal air movement, No rhonchi, No wheeze, No rales Cardiovascular: Regular rate, Regular Rhythm, Normal S1, Normal S2, PMI Normal Abdomen: Bowel Sounds Present, Soft, Non Tender, Non-Distended Extremities: No clubbing, No cyanosis, No edema Skin: No rashes, Ulcer/ Wound Lymphatic: No Cervical, Supraclavicular, or Inguinal Adenopathy Neurological: Cranial nerves II-XII grossly intact, Neuro grossly intact Psych/Mental Status: Normal Affect, Appropriate Vital Signs Temp Pulse Resp BP Pulse Ox 98.7 F 83 18 136/65 H 97 05/29/18 09:26 05/29/18 09:31 05/29/18 09:26 05/29/18 09:26 05/29/18 09:26 Oxygen Flow Rate (L/min) 2 Oxygen Delivery Method Room Air Weight: 265 lb 15.803 oz Body Mass Index (BMI) 35.1 Finger Stick Blood Glucose 165 Intake and Output for Last 24 Hours 05/27/18 05/28/18 05/29/18 23:59 23:59 23:59 Intake Total 1300 / 1300 1900 / 1900 200 / 200 Balance 1300 / 1300 1900 / 1900 200 / 200 Microbiology Past 72 Hours 05/28/18 Unknown Gram Stain - Final Bone - Right Foot Wound Culture - Preliminary Staphylococcus species 05/25/18 Unknown Gram Stain - Final Bone - Right Foot Wound Culture - Final No growth aerobically. Anaerobic Culture - Preliminary No growth in 48 hours. 05/25/18 Unknown Gram Stain - Final Bone - Right Foot Wound Culture - Final Staphylococcus aureus Anaerobic Culture - Preliminary No growth in 48 hours. 05/25/18 Unknown Gram Stain - Final Tissue - Right Foot Wound Culture - Final Staphylococcus aureus Anaerobic Culture - Final No anaerobic bacteria isolated. 05/23/18 13:00 Blood Culture - Final Blood Culture (Wb) - Anticubital Left No growth in 5 days. 05/23/18 12:45 Blood Culture - Final Blood Culture (Wb) - Anticubital Left No growth in 5 days. Laboratory Tests Past 24 Hrs 05/29/18 06:00 PT 14.3 INR 1.1 POC Glucose 05/29/18 05/29/18 05/28/18 11:54 06:56 21:07 POC Glucose 226 H 162 H 231 H 05/28/18 16:28 POC Glucose 154 H Discharge Activity: Return to Normal Activity Weight Bearing Status: Weight bearing as tolerated, - - Okay to ambulate to right heel according to Dr. Obregon Call your doctor if your incision/area has: Continuous Slow Oozing, Sudden Increased Bleeding, Increased Pain/ Swelling, Increased Redness, Foul Smelling Discharge Call your doctor if you observe: Fever of 101 or Higher, Shortness of breath, Dizziness, Fainting spells, Chest pain, Increased palpitations (irregular heartbeat), Uncontrolled pain Home Medications: Medications to take at Discharge Metoprolol(XL)Succ [Toprol Xl (Beta Red)] 200 mg PO DAILY 09/16/13 Losartan Potassium 50 mg PO DAILY 03/24/18 Metformin HCl [Metformin HCl ER] 1,000 mg PO BID 03/24/18 Acetaminophen [Tylenol Tablet] 650 mg PO Q6H PRN PRN tablet 04/01/18 Melatonin 10 mg PO QHS PRN PRN tablet 04/01/18 Aspirin [Aspirin, Baby] 81 mg PO DAILY@0800 05/22/18 Atorvastatin Calcium [Lipitor] 40 mg PO QHS 05/22/18 Dulaglutide [Trulicity] 1.5 mg SQ QWEEK 05/22/18 Insulin Glargine [Lantus SoloStar Pen] 22 units SC DAILY 05/22/18 Insulin Lispro [Humalog KwikPen] See Protocol SQ 4X/DAY 05/22/18 Warfarin [Coumadin] 5 mg PO DAILY 05/22/18 Cefazolin 2 gm IV Q8 #120 vial 05/28/18 Following Prescrptions Were Given to Patient: Cefazolin 2 gm IV Q8 #120 vial Other Amb Orders: Prothrombin Time w/INR Time Frame: 05/31/18, Location: Laboratory Primary Care Physician: Chidi Christian III, MD [Primary Care Provider] - Please follow up with your Primary Care Physician in: 1 week. Please Follow Up With: Zachary Obregon DPM When: as scheduled tomorrow. Please Follow Up With: Smith Leija MD When: please call his office. Disposition: Home with Home Health Minutes spent on discharge:: 33 Patient Condition:: Stable Medical Necessity - Tobacco Use Smoking Status: Never smoker Meaningful Use Info Meaningful Use Diagnoses (Choose all that apply): None applicable Code Visit Inpatient E&M: 86498 Disch Hosp
== END 2018-05-29 14:41 | disposition home health service (06) | DRG 475 ==
PROVIDERS: Anesthesiology; Podiatrist Foot & Ankle Surgery; Admitting Provider Internal Medicine; Family Provider Family Medicine; PCP Family Medicine; Referring Provider Internal Medicine; Visit Provider Hospitalist
PROC: 0Y6M0Z9 Detachment at Right Foot, Partial 1st Ray, Open Approach (ICD-10-PCS; principal; 2018-05-25 09:00)
PROC: 0QBN0ZX Excision of Right Metatarsal, Open Approach, Diagnostic (ICD-10-PCS; principal; 2018-05-28 11:20)
DX: T87.81 Dehiscence of amputation stump (principal); L03.115 Cellulitis of right lower limb; L02.611 Cutaneous abscess of right foot; M86.171 Other acute osteomyelitis, right ankle and foot; E11.69 Type 2 diabetes mellitus with other specified complication; E11.40 Type 2 diabetes mellitus with diabetic neuropathy, unspecified; E78.5 Hyperlipidemia, unspecified; I45.10 Unspecified right bundle-branch block; E11.628 Type 2 diabetes mellitus with other skin complications; B95.61 Methicillin susceptible Staphylococcus aureus infection as the cause of diseases classified elsewhere; I10 Essential (primary) hypertension; Z89.411 Acquired absence of right great toe; Z86.711 Personal history of pulmonary embolism; Z86.79 Personal history of other diseases of the circulatory system; Z79.01 Long term (current) use of anticoagulants; Z79.4 Long term (current) use of insulin; D64.9 Anemia, unspecified; L97.519 Non-pressure chronic ulcer of other part of right foot with unspecified severity
CPT/HCPCS: 36415; 36569; 73620; 73630; 73718; 76000; 80048; 80053; 81001; 82962; 83036; 83735; 85014; 85018; 85025; 85027; 85610; 87015; 87040; 87070; 87075; 87077; 87102; 87116; 87186; 87205; 87206; 87641; 88304; 88305; 88311; 93005; 93922; 97802; 99251; A4216; G0463; J2405

== ENCOUNTER 2018-06-09 15:52 | Outpatient (RCR) | payer MEDICARE, OTHER, SELFPAY ==
[2018-05-28 10:06] VITALS: BMI 35.1
[2018-06-02 16:03] LABS: Anion Gap 4 (5-15); BUN 17 mg/dL (7-18); BUN/Creat Ratio 15.9 RATIO (10-20); Calcium,Total 8.4 mg/dL (8.5-10.1); Chloride 107 mmol/L (98-107); Creatinine, Serum 1.07 mg/dL (0.70-1.30); EST Glomerular Filtration Rate 73 mL/min (>60); Est Glom Filt Rate - Afr Amer 88 mL/min (>60); Glucose 185 mg/dL (74-106); Potassium 4.1 mmol/L (3.5-5.1); Sodium Level 139 mmol/L (136-145)
[2018-06-02 16:15] LABS: Erythrocyte Sedimentation Rate 37 mm/hr (0-20)
[2018-06-02 16:20] LABS: Hematocrit 31.3 % (40-54); Hemoglobin 9.6 g/dl (13.0-16.5); Mean Corp Hgb Conc 30.7 g/gl (32-36); Mean Corpuscular Hgb 26.4 pg (27.0-32.0); Mean Corpuscular Volume 86.2 fL (80-94); Mean Platelet Vol. 9.5 fl (6.2-12.0); Platelet Count 274 K/mm3 (150-450); RBC Distribution Width CV 14.4 % (11.6-14.6); Red Blood Count 3.63 M/mm3 (4.6-6.2); White Blood Count 9.5 K/mm3 (4.4-11.0)
[2018-06-02 16:24] LABS: Scan Indicated on CBC? Y/N NO
[2018-06-09 17:01] LABS: Hematocrit 32.3 % (40-54); Hemoglobin 10.1 g/dl (13.0-16.5); Mean Corp Hgb Conc 31.3 g/gl (32-36); Mean Corpuscular Hgb 26.9 pg (27.0-32.0); Mean Corpuscular Volume 86.1 fL (80-94); Mean Platelet Vol. 10.1 fl (6.2-12.0); Platelet Count 234 K/mm3 (150-450); RBC Distribution Width CV 14.6 % (11.6-14.6); Red Blood Count 3.75 M/mm3 (4.6-6.2); White Blood Count 8.3 K/mm3 (4.4-11.0)
[2018-06-09 17:02] LABS: Scan Indicated on CBC? Y/N NO
[2018-06-09 17:07] LABS: Anion Gap 12 (5-15); BUN 19 mg/dL (7-18); Calcium,Total 8.7 mg/dL (8.5-10.1); Chloride 103 mmol/L (98-107); Creatinine, Serum 1.12 mg/dL (0.70-1.30); EST Glomerular Filtration Rate 69 mL/min (>60); Est Glom Filt Rate - Afr Amer 83 mL/min (>60); Glucose 173 mg/dL (74-106); Sodium Level 141 mmol/L (136-145)
[2018-06-09 17:15] LABS: Erythrocyte Sedimentation Rate 25 mm/hr (0-20)
== END 2018-06-13 23:59 ==
LOC: HHLAB 15:52
PROVIDERS: Family Provider Family Medicine; PCP Family Medicine; Referring Provider Internal Medicine Infectious Disease; Visit Provider Internal Medicine Infectious Disease
DX: M86.9 Osteomyelitis, unspecified (principal)
CPT/HCPCS: 80048; 85027; 85652

== ENCOUNTER 2018-06-23 15:31 | Outpatient (RCR) | payer MEDICARE, OTHER, SELFPAY ==
[2018-05-28 10:06] VITALS: BMI 35.1
[2018-06-16 13:24] LABS: Erythrocyte Sedimentation Rate 23 mm/hr (0-20); Hematocrit 33.6 % (40-54); Hemoglobin 10.5 g/dl (13.0-16.5); Mean Corp Hgb Conc 31.3 g/gl (32-36); Mean Corpuscular Hgb 26.9 pg (27.0-32.0); Mean Corpuscular Volume 86.2 fL (80-94); Platelet Count 231 K/mm3 (150-450); RBC Distribution Width CV 14.7 % (11.6-14.6); RBC Distribution Width SD 44.6 fl (35.1-43.9); White Blood Count 8.1 K/mm3 (4.4-11.0)
[2018-06-16 13:25] LABS: Scan Indicated on CBC? Y/N NO
[2018-06-16 13:26] LABS: Anion Gap 9 (5-15); BUN 18 mg/dL (7-18); BUN/Creat Ratio 14.9 RATIO (10-20); Calcium,Total 8.4 mg/dL (8.5-10.1); Chloride 104 mmol/L (98-107); Creatinine, Serum 1.21 mg/dL (0.70-1.30); EST Glomerular Filtration Rate 63 mL/min (>60); Est Glom Filt Rate - Afr Amer 76 mL/min (>60); Glucose 207 mg/dL (74-106); Potassium 3.9 mmol/L (3.5-5.1); Sodium Level 142 mmol/L (136-145)
[2018-06-19 17:15] LABS: Prothrombin Time (Protime)PT. 32.4 SECONDS (11.7-14.9)
[2018-06-19 17:46] LABS: International Normalized Ratio 3.1
[2018-06-23 16:32] LABS: Hematocrit 34.6 % (40-54); Hemoglobin 10.6 g/dl (13.0-16.5); Mean Corp Hgb Conc 30.6 g/gl (32-36); Mean Corpuscular Hgb 26.2 pg (27.0-32.0); Mean Corpuscular Volume 85.4 fL (80-94); Mean Platelet Vol. 9.5 fl (6.2-12.0); Platelet Count 241 K/mm3 (150-450); RBC Distribution Width CV 14.6 % (11.6-14.6); Red Blood Count 4.05 M/mm3 (4.6-6.2); White Blood Count 8.6 K/mm3 (4.4-11.0)
[2018-06-23 16:36] LABS: Scan Indicated on CBC? Y/N NO
[2018-06-23 16:41] LABS: Anion Gap 7 (5-15); BUN 21 mg/dL (7-18); BUN/Creat Ratio 18.8 RATIO (10-20); Calcium,Total 8.4 mg/dL (8.5-10.1); Chloride 104 mmol/L (98-107); Creatinine, Serum 1.12 mg/dL (0.70-1.30); EST Glomerular Filtration Rate 69 mL/min (>60); Est Glom Filt Rate - Afr Amer 83 mL/min (>60); Glucose 221 mg/dL (74-106); Sodium Level 139 mmol/L (136-145)
[2018-06-23 17:34] LABS: Erythrocyte Sedimentation Rate 21 mm/hr (0-20)
--- OUTSIDE RECORDS SUMMARY | 2018-08-09 20:26 | XMS RPT_ITS ---
:1945 Author Organization OHIP Support Name Relationship Address Phone LORENA ROY Unavailable [phone] [place] [address] RD + [place] [address] R Unavailable Unavailable Unavailable KIRILL LORENA Unavailable [address] [place] [address] RD + [place] [address] R Unavailable Unavailable Unavailable KIRILL LORENA Unavailable [address] [place] [address] RD + [place] [address] R Unavailable Unavailable Unavailable KIRILL, LORENA Unavailable [address] [place] [address] RD + [place] [address] R Unavailable Unavailable Unavailable KIRILL, LORENA Unavailable [phone] [place] [address] RD + [place] [address] R Unavailable Unavailable Unavailable KIRILL, LORENA Unavailable [id number] [place] [address] RD + [place] [address] R Unavailable Unavailable Unavailable KIRILL, LORENA Unavailable [phone] [place] [address] RD + [place] [address] R Unavailable Unavailable Unavailable KIRILL, LORENA Unavailable [phone] [place] [address] RD + [place] [address] R Unavailable Unavailable Unavailable KIRILL, LORENA Unavailable [phone] [place] [address] RD + [place] [address] R Unavailable Unavailable Unavailable KIRILL LORENA Unavailable [phone] [place] [address] RD + [place] [address] R Unavailable Unavailable Unavailable KIRILL, LORENA Unavailable [address] [place] [address] RD + [place] [address] R Unavailable Unavailable Unavailable KIRILL, LORENA Unavailable [phone] [place] [address] RD + [place] [address] R Unavailable Unavailable Unavailable KIRILL, LORENA Unavailable [address] [place] [address] [address] + [place] [address] R Unavailable Unavailable Unavailable KIRILL, LORENA Unavailable [phone] [place] [address] RD + [place] [address] R Unavailable Unavailable Unavailable KIRILL, LORENA Unavailable [phone] [place] [address] RD + [place] [address] R Unavailable Unavailable Unavailable KIRILL, LORENA Unavailable [phone] [place] [address] RD + [place] [address] R Unavailable Unavailable Unavailable KIRILL, LORENA Unavailable [address] [place] [address] RD + [place] [address] R Unavailable Unavailable Unavailable Kirill, Lorena Unavailable [address] [place] [address] [address] + [place] [address] R Unavailable Unavailable Unavailable Kirill, Lorena Unavailable [address] [place] [address] RD + [place] [address] R Unavailable Unavailable Unavailable Kirill, Lorena Unavailable [address] [place] [address] [address] + [place] [address] R Unavailable Unavailable Unavailable Kirill, Lorena Unavailable [address] [place] [address] [address] + [place] [address] R Unavailable Unavailable Unavailable Kirill, Lorena Unavailable [address] [place] [address] [address] + [place] [address] R Unavailable Unavailable Unavailable Kirill, Lorena Unavailable [address] [place] [address] [address] + [place] [address] R Unavailable Unavailable Unavailable Kirill, Lorena Unavailable [address] [place] [address] [address] + [place] [address] R Unavailable Unavailable Unavailable Kirill, Lorena Unavailable [address] [place] [address] [address] + [place] [address] R Unavailable Unavailable Unavailable KIRILL, LORENA Unavailable [address] [place] [address] [address] + [place] [address] R Unavailable Unavailable Unavailable Kirill, Lorena Unavailable [address] [place] [address] [address] + [place] [address] R Unavailable Unavailable Unavailable Kirill, Lorena Unavailable [address] [place] [address] [address] + [place] [address] R Unavailable Unavailable Unavailable Kirill, Lorena Unavailable [address] [place] [address] [address] + [place] [address] R Unavailable Unavailable Unavailable KirillArthurel Unavailable [phone] [place] [address] RD + [place] [address] R Unavailable Unavailable Unavailable Kirill Lorena Unavailable [address] [place] [address] [address] + [place] [address] R Unavailable Unavailable Unavailable Kirill Lorena Unavailable [address] [place] [address] [address] + [place] [address] R Unavailable Unavailable Unavailable Kirill Lorena Unavailable [address] [place] [address] [address] + [place] [address] R Unavailable Unavailable Unavailable Kirill Lorena Unavailable [address] [place] [address] [address] + [place] [address] R Unavailable Unavailable Unavailable Kirill Lorena Unavailable [address] [place] [address] [address] + [place] [address] R Unavailable Unavailable Unavailable Kirill Lorena Unavailable [address] [place] [address] [address] + [place] [address] R Unavailable Unavailable Unavailable Kirill Lorena Unavailable [address] [place] [address] [address] + [place] [address] R Unavailable Unavailable Unavailable Care Team Providers Name Role Phone CEBUL III, DMITRY Crooks Referring Unavailable TESTRAKE, ARMINDA Attending Unavailable TESTRAKE, ARMINDA Referring Unavailable CEBUL III, DMITRY Crooks Attending Unavailable FRANCISCO LIRA (HEAT TREAT TECHNICIAN) Referring Unavailable CEBUL III, DMITRY Daksha Referring Unavailable CEBUL III, DMITRY A Referring Unavailable CEBUL III, DMITRY A Referring Unavailable CEBUL III, DMITRY A Referring Unavailable CEBUL III, DMITRY A Attending Unavailable CEBUL III, DMITRY A Referring Unavailable CEBUL III, DMITRY A Referring Unavailable TESTRAKE, ARMINDA Attending Unavailable TESTRAKE, ARMINDA Referring Unavailable TESTRAKE, ARMINDA Referring Unavailable TESTRAKE, ARMINDA Attending Unavailable TESTRAKE, ARMINDA Referring Unavailable CEBUL III, DMITRY Crooks Referring Unavailable TESTRAKE, ARMINDA Attending Unavailable TESTRAKE, ARMINDA Referring Unavailable TESTRAKE, ARMINDA Referring Unavailable TESTRAKE, ARMINDA Attending Unavailable TESTRAKE, ARMINDA Referring Unavailable TESTRAKE, ARMINDA Attending Unavailable TESTRAKE, ARMINDA Referring Unavailable TESTRAKE, ARMINDA Referring Unavailable TESTRAKE, ARMINDA Attending Unavailable TESTRAKE, ARMINDA Referring Unavailable TESTRAKE, ARMINDA Attending Unavailable TESTRAKE, ARMINDA Referring Unavailable TESTRAKE, ARMINDA Referring Unavailable TESTRAKE, ARMINDA Attending Unavailable TESTRAKE, ARMINDA Referring Unavailable TESTRAKE, ARMINDA Attending Unavailable TESTRAKE, ARMINDA Referring Unavailable TESTRAKE, ARMINDA Attending Unavailable TESTRAKE, ARIMNDA Referring Unavailable TESTRAKE, ARMINDA Attending Unavailable TESTRAKE, ARMINDA Referring Unavailable CEBUL III, DMITRY A Referring Unavailable TESTRAKE, ARMINDA Referring Unavailable TESTRAKE, ARMINDA Attending Unavailable TESTRAKE, ARMINDA Referring Unavailable TESTRAKE, ARMINDA Referring Unavailable CEBUL III, DMITRY A Attending Unavailable TESTRAKE, ARMINDA Attending Unavailable TESTRAKE, ARMINDA Referring Unavailable TESTRAKE, ARMINDA Attending Unavailable TESTRAKE, ARMINDA Referring Unavailable TESTRAKE, ARMINDA Referring Unavailable TESTRAKE, ARMINDA Attending Unavailable TESTRAKE, ARMINDA Referring Unavailable TESTRAKE, ARMINDA Attending Unavailable TESTRAKE, ARMINDA Referring Unavailable TESTRAKE, ARMINDA Attending Unavailable TESTRAKE, ARMINDA Referring Unavailable TESTRAKE, ARMINDA Attending Unavailable TESTRAKE, ARMINDA Referring Unavailable TESTRAKE, ARMINDA Attending Unavailable TESTRAKE, ARMINDA Referring Unavailable TESTRAKE, ARMINDA Referring Unavailable TESTRAKE, ARMINDA Referring Unavailable TESTRAKE, ARMINDA Attending Unavailable TESTRAKE, ARMINDA Referring Unavailable TESTRAKE, ARMINDA Referring Unavailable Heladio, Smith Attending Unavailable Heladoi, Smith Referring Unavailable Cebul III, Dmitry Primary Care Unavailable Heladio, Smith Attending Unavailable Heladio, Smith Referring Unavailable Cebul III, Dmitry Primary Care Unavailable Heladio, Smith Attending Unavailable Heladio, Smith Referring Unavailable Cebul III, Dmitry Primary Care Unavailable Cebul III, Dmitry Primary Care Unavailable Burnham, Jesus Admitting Unavailable Burnham, Jesus Referring Unavailable Testrake, Arminda Consulting Unavailable Enzo, Gabriel Attending Unavailable Heladio, Smith Consulting Unavailable Kee Mejia Consulting Unavailable BettyChapin watson Consulting Unavailable Burnham, Jesus Admitting Unavailable Burnham, Jesus Attending Unavailable Burnham, Jesus Referring Unavailable Cebul III, Dmitry Primary Care Unavailable Burnham, Jesus Consulting Unavailable Burnham, Jesus Admitting Unavailable Hugo Cervantes Attending Unavailable Burnham, Jesus Referring Unavailable Cebul III, Zena Primary Care Unavailable Testrake, Arminda Consulting Unavailable Hugo Cervantes Consulting Unavailable Sementi, Chelsea Attending Unavailable Burnham, Jesus Admitting Unavailable Burnham, Jesus Referring Unavailable Cebul III, Zena Primary Care Unavailable Testrake, Arminda Consulting Unavailable Chapin Hernández Consulting Unavailable Smith Ndiaye Consulting Unavailable Oleghe, Ifijen Consulting Unavailable Burnham, Jesus Admitting Unavailable Burnham, Jesus Referring Unavailable Cebul III, Zena Primary Care Unavailable Testrake, Arminda Consulting Unavailable Sementi, [place] Attending Unavailable Chapin Hernández Consulting Unavailable Smith Ndiaye Consulting Unavailable Kee Mejia Consulting Unavailable Oleghe, Ifijen Consulting Unavailable Burnham, Jesus Admitting Unavailable Burnham, Jesus Referring Unavailable Cebul III, Zena Primary Care Unavailable Testrake, Arminda Consulting Unavailable Sementi, [place] Attending Unavailable Chapin Hernández Consulting Unavailable Smith Ndiaye Consulting Unavailable Kee Mejia Consulting Unavailable Oleghe, Ifijen Consulting Unavailable Burnham, Jesus Admitting Unavailable Burnham, Jesus Referring Unavailable Cebul III, Zena Primary Care Unavailable Testrake, Arminda Consulting Unavailable Sementi, [place] Attending Unavailable Chapin Hernández Consulting Unavailable Smith Ndiaye Consulting Unavailable Kee Mejia Consulting Unavailable Oleghe, Ifijen Consulting Unavailable Burnham, Jesus Admitting Unavailable Brunham, Jesus Referring Unavailable Cebul III, Zena Primary Care Unavailable Testrake, Arminda Consulting Unavailable Sementi, [place] Attending Unavailable Chapin Hernández Consulting Unavailable Smith Ndiaye Consulting Unavailable Kee Mejia Consulting Unavailable Oleghe, Ifijen Consulting Unavailable Burnham, Jesus Admitting Unavailable Burnham, Jesus Referring Unavailable Cebul III, Zena Primary Care Unavailable Testrake, Arminda Consulting Unavailable Sementi, [place] Attending Unavailable Chapin Hernández Consulting Unavailable Smith Ndiaye Consulting Unavailable Kee Mejia Consulting Unavailable Oleghe, Ifijen Consulting Unavailable Burnham, Jesus Admitting Unavailable TereletskyGabriel Attending Unavailable Burnham, Jesus Referring Unavailable Cebul III, Zena Primary Care Unavailable Testrake, Arminda Consulting Unavailable Smith Ndiaye Consulting Unavailable Kee Mejia Consulting Unavailable Chapin Hernández Consulting Unavailable Tereletsky, Gabriel Consulting Unavailable Petrilla, Marcus Attending Unavailable Chacha, Jesus Admitting Unavailable Tereletsky, Gabriel Attending Unavailable Chacha, Jesus Referring Unavailable Cebul III, Dmitry Primary Care Unavailable Testrake, Arminda Consulting Unavailable Smith Ndiaye Consulting Unavailable Kee Mejia Consulting Unavailable Tereletsky, Gabriel Consulting Unavailable Petrilla, Marcus Attending Unavailable Petrilla, Marcus Attending Unavailable Petrilla, Marcus Attending Unavailable Petrilla, Marcus Attending Unavailable Christ Kang Attending Unavailable OlegheYolie Referring Unavailable Petrilla, Marcus Attending Unavailable Corazon, Júnior Attending Unavailable Tereletsky, Gabriel Referring Unavailable Petrilla, Marcus Attending Unavailable Petrilla, Marcus Attending Unavailable KitLanden russell Admitting Unavailable KittoLanden gallo Referring Unavailable Cebul III, Dmitry Primary Care Unavailable Testrake, Arminda Consulting Unavailable Ashelfah, Ghcarlym Attending Unavailable Smith Ndiaye Consulting Unavailable Landen Blanco Admitting Unavailable Kittodunia, Landen Attending Unavailable KittoLanden gallo Referring Unavailable Cebul III, Dmitry Primary Care Unavailable Testrake, Arminda Consulting Unavailable KittoLanden gallo Consulting Unavailable KittoeLanden Admitting Unavailable Kittoe, Landen Attending Unavailable KittoLanden gallo Referring Unavailable Cebul III, Dmitry Primary Care Unavailable Testrake, Arminda Consulting Unavailable ZaktoLanden gallo Consulting Unavailable Kittodunia, Landen Admitting Unavailable Kittoe, Landen Attending Unavailable KittoLanden gallo Referring Unavailable Cebul III, Dmitry Primary Care Unavailable Testrake, Arminda Consulting Unavailable Landen Blanco Consulting Unavailable KittoLanden gallo Admitting Unavailable Kittoe, Landen Attending Unavailable KittoLanden gallo Referring Unavailable Cebul III, Dmitry Primary Care Unavailable Testrake, Arminda Consulting Unavailable KittoLanden gallo Consulting Unavailable KittoLanden gallo Admitting Unavailable Ashelfah, Bear Attending Unavailable KitLanden russell Referring Unavailable Cebul III, Dmitry Primary Care Unavailable Testrake, Arminda Consulting Unavailable Antonioelfah, Shreyam Consulting Unavailable KittoLanden gallo Admitting Unavailable AshelfahBear Attending Unavailable KitLanden russell Referring Unavailable Cebul III, Dmitry Primary Care Unavailable Testrake, Arminda Consulting Unavailable AntonioelfahShreyam Consulting Unavailable KittoLanden gallo Admitting Unavailable AshelfahBear Attending Unavailable Landen Blanco Referring Unavailable Cebul III, Dmitry Primary Care Unavailable Arminda Obregon Consulting Unavailable Smith Ndiaye Consulting Unavailable Bear Nolan Consulting Unavailable Landen Blanco Admitting Unavailable Bear Nolan Attending Unavailable Landen Blanco Referring Unavailable Cebul III, Dmitry Primary Care Unavailable Testanny, Arminda Consulting Unavailable Smith Ndiaye Consulting Unavailable An, Ghasem Consulting Unavailable Smith Ndiaye Attending Unavailable Smith Ndiaye Referring Unavailable Cebul III, Dmitry Primary Care Unavailable Smith Ndiaye Attending Unavailable Smith Ndiaye Referring Unavailable Cebul III, Dmitry Primary Care Unavailable Frank Chandral Attending Unavailable Landen Blanco Referring Unavailable Smith Roberto Attending Unavailable An, Ghasem Referring Unavailable PROBLEMS PROBLEMS DATE TYPE CONDITION / CODE ATTENDING STATUS SOURCE 07/24/2018 Active Acquired absence of NA Active [facility] other right toe(s) / [facility] Z89.421(ICD-10) [place] Repository 07/14/2018 Unknown T87.81 - Dehiscence of Heladio, Active [facility] amputation stump / [facility] T87.81(ICD-10) Hospital Repository 06/27/2018 Active Other osteomyelitis, NA Active [facility] ankle and foot / [facility] M86.8X7(ICD-10) [place] Repository 06/14/2018 Unknown M86.9 - Osteomyelitis, Heladio, Active [facility] unspecified / [facility] M86.9(ICD-10) Hospital Repository 06/16/2018 Unknown I45.10 - Unspecified Corazon, Júnior Active [facility] right bundle-branch Community block / I45.10(ICD-10) Hospital Repository 06/16/2018 Unknown R94.31 - Abnormal Corazon, Lacassine Active [facility] electrocardiogram Community [ECG] [EKG] / Hospital R94.31(ICD-10) Repository 06/16/2018 Unknown I10 - Essential Corazon, Júnior Active [facility] (primary) hypertension Community / I10(ICD-10) Hospital Repository 06/17/2018 Unknown I73.9 - Peripheral Cebupeter Smith Active [facility] vascular disease, Community unspecified / Hospital I73.9(ICD-10) Repository 05/13/2018 Active Disruption of wound, NA Active [facility] unspecified, initial [facility] encounter / [place] T81.30XA(ICD-10) Repository 05/07/2018 Active [facility] (current) NA Active [facility] use of anticoagulants [facility] / Z79.01(ICD-10) [facility] Repository 04/04/2018 Unknown E11.69 - Type 2 Tereletsky, Active [facility] diabetes mellitus with [facility] other specified Hospital complication / Repository E11.69(ICD-10) 03/06/2018 Active Type 2 diabetes NA Active [facility] mellitus with foot [facility] ulcer / [place] E11.621(ICD-10) Repository 03/06/2018 Active Non-pressure chronic NA Active [facility] 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 with fat [place] layer exposed / Repository L97.512(ICD-10) 12/02/2017 Active Type 2 diabetes NA Active [facility] mellitus with diabetic [facility] polyneuropathy / [place] E11.42(ICD-10) Repository 12/02/2017 Active Other specified NA Active [facility] symptoms and signs [facility] involving the [place] circulatory and Repository respiratory systems / R09.89(ICD-10) 12/02/2017 Active Epidermal thickening, NA Active [facility] unspecified / [facility] L85.9(ICD-10) [facility] Repository 06/20/2016 Active [facility] (current) NA Active [facility] use of insulin / [facility] Z79.4(ICD-10) [place] Repository 06/20/2016 Active Type 2 diabetes NA Active [facility] mellitus with diabetic [facility] chronic kidney disease [place] / E11.22(ICD-10) Repository 06/20/2016 Active Chronic kidney NA Active [facility] disease, stage 3 [facility] (moderate) / [place] N18.3(ICD-10) Repository 06/20/2016 Active Other specified NA Active [facility] postprocedural states [facility] / Z98.890(ICD-10) [facility] Repository 08/19/2017 Active Personal history of NA Active [facility] pulmonary embolism / [facility] Z86.711(ICD-10) [place] Repository 05/16/2015 Active Hyperlipidemia, NA Active [facility] unspecified / [facility] E78.5(ICD-10) [place] Repository 10/28/2012 Active Essential (primary) NA Active [facility] hypertension / [facility] I10(ICD-10) [place] Repository 08/15/2017 Active Type 2 diabetes NA Active [facility] mellitus with diabetic [facility] neuropathy, [place] unspecified / Repository E11.40(ICD-10) PROCEDURES PROCEDURES No Procedure Records FoundRESULTS RESULTS XR FOOT 3V AP/LAT/OBL Observed: 07/24/2018 Status: F Source: [facility] 10:25 AM [facility] REPOSITORY * * *Final Report* * * DATE OF EXAM: Jul 24 2018 10:25AM [id number] [id number] - XR FOOT 3V AP/LAT/OBL RT / PROCEDURE REASON: multiple diagnoses * * * * Physician Interpretation * * * * HISTORY: 72-YEAR-OLD MALE WITH Amputated toe of right foot (HCC) Diabetic polyneuropathy associated with type 2 diabetes mellitus (HCC) . follow up to right foot 1st digit amputaion TECHNIQUE: XR FOOT 3V AP/LAT/OBL RT Laterality: RIGHT Number of different views (projections): 3 COMPARISON: 06/24/2018 RESULT: There is a decrease in soft tissue swelling around the stump of the amputated first metatarsal at the distal diaphysis. There are continues to be a moderate degree of soft tissue swelling. Small amount of heterotopic calcification is present on the medial side of the remaining bone and there is more consolidation of calcification on the lateral side of the bone. The distal stump is slightly more irregular than on the previous exam IMPRESSION: COMPARED TO PREVIOUS EXAMINATION IS DECREASED SOFT TISSUE SWELLING AND IMPROVEMENT IN MINERALIZATION OF THE DISTAL STUMP OF THE FIRST METATARSAL WITH INCREASED HETEROTOPIC CALCIFICATION. Pest Management Supervisor: PSCB Transcribe Date/Time: Jul 24 2018 4:16P Dictated by : JOJO HOWARD MD This examination was interpreted and the report reviewed and electronically signed by: JOJO HOWARD MD on Jul 24 2018 4:20PM EST [id number] PROGRESS Observed: 07/24/2018 Status: COMPLETED Source: [place] 10:17 AM [facility] REPOSITORY HNO ID: [id number] Author: Azucena (Rt) Coty Inman Service: (none) Author Type: Piece Maker Type: Progress Notes Filed: 07/24/2018 10:26 AM Note Text: Radiology Service Progress Note PATIENT NAME: Richard Roy DATE OF SERVICE: July 24, 2018 TIME: 10:17 AM PATIENT IDENTITY VERIFICATION COMPLETED USING TWO (2) METHODS: Patient confirmed name verbally and Date of . PATIENT GENDER DATA: Male PATIENT RELEVANT IMPLANT DATA REVIEWED: Not Applicable RADIOLOGY DEPARTMENT: General X-ray: Exam(s) Completed: Lower Extremity X-Ray(s): Foot, Right and Wt. Bearing: PERIPHERAL IV DATA: Not applicable SIGNED BY: RT Ziggy July 24, 2018 10:17 AM PROGRESS Observed: 07/24/2018 Status: COMPLETED Source: [place] 9:57 AM [facility] [place] REPOSITORY HNO ID: [id number] Author: Arminda Obregon Service: (none) Author Type: Physician Type: Progress Notes Filed: 07/24/2018 10:07 AM Note Text: Follow up podiatric office visit for: Chief Complaint: This 72 year old who presents for follow up:right hallux amputation. Patient underwent right hallux amputation in March but failed to heal his post-op incision. He had further surgical intervention in May to include partial 1st ray amputation. He was on IV antibiotics and was followed by Infectious [facility]. He completed course of IV antibiotics on June 25. F/u xrays performed in June had concerns by radiology for stump OM. CT scan did not include nor exclude residual stump osteomyelitis. He was sent to ID who per patient determined that his blood counts appears satisfactory, his skin incision had healed and therefore, the xray and ct findings were likely post-surgical and not om. Patient has been full ambulatory without issues. He denies any issues with his recently amputated right hallux. He does report that over the past week, he developed a tiny blood blister to his right 2nd metatarsal. He does not recall how this happened. He denies n/v/f/c. He is scheduled to receive diabetic shoes with toe rod cup filler coming weeks. PAIN EVALUATION No data found. 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) 05/25/2018 - Hyperlipidemia LDL goal < 100 04/01/2012 - Pulmonary embolus, right (HCC) 09/25/2013 - Status post aortic valve repair 2004 - Thoracic aneurysm without mention of rupture - Type 2 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 For cholesterol. metFORMIN ER (GLUCOPHAGE XR) 500 mg 24 hr tablet TAKE 2 TABLETS BY MOUTH TWICE DAILY WITH MEALS. insulin needles, DISPOSABLE, (BD INSULIN PEN NEEDLE UF) 31 gauge x 5/16 ndle 1 Each once daily. insulin needles, DISPOSABLE, (BD INSULIN PEN NEEDLE UF) 31 gauge x 5/16 ndle 1 Each four times daily. insulin glargine (LANTUS SOLOSTAR U-100 INSULIN) 100 unit/mL (3 mL) inpn Inject 22 Units subcutaneously daily at bedtime. insulin aspart U-100 (NOVOLOG FLEXPEN U-100 INSULIN) 100 unit/mL inpn Inject with meals according to sliding scale: 100-200=3 units, 201-250=5 units, 251-300=8 units, 301-350=12 units, 351-400=15 units. losartan (COZAAR) 50 mg tablet Take 1 tablet by mouth once daily. blood sugar diagnostic (GLOGTOUCH ULTRA TEST) test strip Test blood sugar(s) 5 times daily. Dx: E11.49. Insulin: Yes warfarin (COUMADIN) 5 mg tablet TAKE 5mg on Sundays, 10 mg on ALL OTHER DAYS dulaglutide (TRULICITY) 1.5 mg/0.5 mL pnij Inject 1.5 mg subcutaneously once each week. Inject once per week. Discard Pen After metoprolol succinate ER (TOPROL XL) 200 mg 24 hr tablet TAKE 1 TABLET BY MOUTH ONCE DAILY. aspirin, enteric coated (ASPIRIN LOW DOSE) 81 mg EC tablet Take 1 tablet by mouth once daily. Insulin Syringe-Needle U-100 (BD INSULIN SYRINGE UF II) 0.5 mL 31 gauge x 5/16 syrg Use 1 syringe for insulin injections five (5) times daily as directed. DX: 250.60 Insulin: Yes No current facility-administered medications for this visit. ALLERGIES No Known Allergies PAST SURGICAL HISTORY Procedure Laterality Date - AMPUTATION METATARSAL+TOE,SINGLE Right 05/25/2018 with delayed closure on 05/28/18. Dr. Obregon at [facility] - COLONOSCOP W/ OR W/O [facility] SPEC 03/12/11 - DEBRIDE SKIN AND SUBQ TISSU 09-11-10 LEFT GROIN - DEBRIDEMENT OF SKIN, FULL THIC 09-12-10 LEFT GROIN - I AND D ABSCESS, SINGLE 09/08/10 IANDD abscess left groin - I AND D ABSCESS, SINGLE 10/23/10 IANDD medial to left groin wound - I AND D ABSCESS, SINGLE 01/22/11 IANDD LLQ superficial abscess - REM LESION TRUNK,ARM, LEG <0.5 CM 03/21/11 Exc. fibroepithelial polyp LLQ abd - REMOVAL DEVITAL TISSUE, ARTUR WND CHAPITO <20CM 11/22/10 Debridement posterior neck/IANDD LLQ abd - REVISION OF AORTIC VALVE 2004 Repair of Aortic Value/Thoracic anerusym repair Physical Exam: Constitutional: Pt is a well developed 72 year old male who is alert, oriented, cooperative and in no apparent distress. OBJECTIVE: NVSI unchanged from previous visit. Dermatological: Surgical incision to right 1st ray amputation remains healed with no dehiscence. There are no signs of infection to right 1st ray amputation. The plantar aspect of right 2nd metatarsal has 1 mm red raised lesion that when debrided shows intact epithelium. There are no ulcerations to b/l feet. There is no signs of infection to b/l feet. The left hallux toenail is thick and dystrophic. Musculoskeletal/Orthopaedic: Patient has no pain to palpation of b/l feet xrays and ct scan reviewed. There is loss of cortex of medial 1st metatarsal. There is hypertrophic bone formation. ASSESSMENT: (Z98.890) Post-operative state (primary encounter diagnosis) (Z89.421) Amputated toe of right foot (HCC) (E11.42) Diabetic polyneuropathy associated with type 2 diabetes mellitus (HCC) PLAN: 1. Patient was examined and informed of current findings 2. He is s/p partial 1st ray amputation. His incision is healed and he shows no signs of infection. He did have xray that showed loss of medial cortext and hypertrophic bone formation. I suspect this loss of cortex is consistent with site of post-lavage biopsy of 1st metatarsal. He was seen by ID who felt patient appeared stable s/p amputation and he did not require any further antibiotics. He remains healed without signs of infection. I will request appointment results from ID as I have yet to receive them but I feel patient has healed his amputation without complications. He will continue with diabetic shoes and toe filler. 3. On exam, he did have tiny red raised eschar to plantar 2nd metatarsal. I debrided this with 15 blade. This is likely result of blood blister from him walking barefoot. Recommend he avoid barefoot walking. Wear diabetic shoes at all times. 4. I am going to order baseline xray due to recent onset of puncture wound/blood blister. I suspect the findings to be similar to past xrays. I informed patient that if any changes occur on xray I will contact him. I have low concerns for any infection of 1st metatarsal and follow-up xrays should confirm this. 5. I debrided his left hallux toenail as courtesy. 6. F/u in 1 month for diabetic foot exam. Arminda Obregon DPM CNOV Observed: 07/24/2018 Status: COMPLETED Source: [place] 9:40 AM [facility] REPOSITORY Office Visit (PODIWS) RICHARD ROY ([id number]) 1945 M Date Time Provider Department 07/24/18 9:40 AM ARMINDA OBREGON PODIWS During your visit today, we recorded the following information about you: Kayleen Zavala Ma 07/24/2018 10:07 AM Signed AMB ROOMING INTAKE FLOWSHEET DATA Risk Screening Do you have concerns about personal safety or safety in the home?: No Patient here for Post 1st ray amputation on 05/25/18. States that he has no pain. Patient has diabetic shoes. Arminda Obregon DPM 07/24/2018 10:07 AM Signed Follow up podiatric office visit for: Chief Complaint: This 72 year old who presents for follow up:right hallux amputation. Patient underwent right hallux amputation in March but failed to heal his post-op incision. He had further surgical intervention in May to include partial 1st ray amputation. He was on IV antibiotics and was followed by Infectious Disesae. He completed course of IV antibiotics on June 25. F/u xrays performed in June had concerns by radiology for stump OM. CT scan did not include nor exclude residual stump osteomyelitis. He was sent to ID who per patient determined that his blood counts appears satisfactory, his skin incision had healed and therefore, the xray and ct findings were likely post-surgical and not om. Patient has been full ambulatory without issues. He denies any issues with his recently amputated right hallux. He does report that over the past week, he developed a tiny blood blister to his right 2nd metatarsal. He does not recall how this happened. He denies n/v/f/c. He is scheduled to receive diabetic shoes with toe rod cup filler coming weeks. PAIN EVALUATION No data found. 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 ([facility]) 05/25/2018 - Hyperlipidemia LDL goal < 100 04/01/2012 - Pulmonary embolus, right ([facility]) 09/25/2013 - Status post aortic valve repair 2004 - Thoracic aneurysm without mention of rupture - Type 2 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 For cholesterol. metFORMIN ER (GLUCOPHAGE XR) 500 mg 24 hr tablet TAKE 2 TABLETS BY MOUTH TWICE DAILY WITH MEALS. insulin needles, DISPOSABLE, (BD INSULIN PEN NEEDLE UF) 31 gauge x 5/16 ndle 1 Each once daily. insulin needles, DISPOSABLE, (BD INSULIN PEN NEEDLE UF) 31 gauge x 5/16 ndle 1 Each four times daily. insulin glargine (LANTUS SOLOSTAR U-100 INSULIN) 100 unit/mL (3 mL) inpn Inject 22 Units subcutaneously daily at bedtime. insulin aspart U-100 (NOVOLOG FLEXPEN U-100 INSULIN) 100 unit/mL inpn Inject with meals according to sliding scale: 100-200=3 units, 201- 250=5 units, 251-300=8 units, 301-350=12 units, 351-400=15 units. losartan (COZAAR) 50 mg tablet Take 1 tablet by mouth once daily. blood sugar diagnostic ([employer] ([employer]) ULTRA TEST) test strip Test blood sugar(s) 5 times daily. Dx: E11.49. Insulin: Yes warfarin (COUMADIN) 5 mg tablet TAKE 5mg on Sundays, 10 mg on ALL OTHER DAYS dulaglutide (TRULICITY) 1.5 mg/0.5 mL pnij Inject 1.5 mg subcutaneously once each week. Inject once per week. Discard Pen After metoprolol succinate ER (TOPROL XL) 200 mg 24 hr tablet TAKE 1 TABLET BY MOUTH ONCE DAILY. aspirin, enteric coated (ASPIRIN LOW DOSE) 81 mg EC tablet Take 1 tablet by mouth once daily. Insulin Syringe-Needle U-100 (BD INSULIN SYRINGE UF II) 0.5 mL 31 gauge x 5/16 syrg Use 1 syringe for insulin injections five (5) times daily as directed. DX: 250.60 Insulin: Yes No current facility-administered medications for this visit. ALLERGIES No Known Allergies PAST SURGICAL HISTORY Procedure Laterality Date - AMPUTATION METATARSAL+TOE,SINGLE Right 05/25/2018 with delayed closure on 05/28/18. Dr. Obregon at [facility] - COLONOSCOP W/ OR W/O [facility] SPEC 03/12/11 - DEBRIDE SKIN AND SUBQ TISSU 09-11-10 LEFT GROIN - DEBRIDEMENT OF SKIN, FULL THIC 09-12-10 LEFT GROIN - I AND D ABSCESS, SINGLE 09/08/10 IANDD abscess left groin - I AND D ABSCESS, SINGLE 10/23/10 IANDD medial to left groin wound - I AND D ABSCESS, SINGLE 01/22/11 IANDD LLQ superficial abscess - REM LESION TRUNK,ARM, LEG <0.5 CM 03/21/11 Exc. fibroepithelial polyp LLQ abd - REMOVAL DEVITAL TISSUE, ARTUR WND CHAPITO <20CM 11/22/10 Debridement posterior neck/IANDD LLQ abd - REVISION OF AORTIC VALVE 2005 Repair of Aortic Value/Thoracic anerusym repair Physical Exam: Constitutional: Pt is a well developed 72 year old male who is alert, oriented, cooperative and in no apparent distress. OBJECTIVE: NVSI unchanged from previous visit. Dermatological: Surgical incision to right 1st ray amputation remains healed with no dehiscence. There are no signs of infection to right 1st ray amputation. The plantar aspect of right 2nd metatarsal has 1 mm red raised lesion that when debrided shows intact epithelium. There are no ulcerations to b/l feet. There is no signs of infection to b/l feet. The left hallux toenail is thick and dystrophic. Musculoskeletal/Orthopaedic: Patient has no pain to palpation of b/l feet xrays and ct scan reviewed. There is loss of cortex of medial 1st metatarsal. There is hypertrophic bone formation. ASSESSMENT: (Z98.890) Post-operative state (primary encounter diagnosis) (Z89.421) Amputated toe of right foot (HCC) (E11.42) Diabetic polyneuropathy associated with type 2 diabetes mellitus ([facility]LY [facility]) PLAN: 1. Patient was examined and informed of current findings 2. He is s/p partial 1st ray amputation. His incision is healed and he shows no signs of infection. He did have xray that showed loss of medial cortext and hypertrophic bone formation. I suspect this loss of cortex is consistent with site of post-lavage biopsy of 1st metatarsal. He was seen by ID who felt patient appeared stable s/p amputation and he did not require any further antibiotics. He remains healed without signs of infection. I will request appointment results from ID as I have yet to receive them but I feel patient has healed his amputation without complications. He will continue with diabetic shoes and toe filler. 3. On exam, he did have tiny red raised eschar to plantar 2nd metatarsal. I debrided this with 15 blade. This is likely result of blood blister from him walking barefoot. Recommend he avoid barefoot walking. Wear diabetic shoes at all times. 4. I am going to order baseline xray due to recent onset of puncture wound/blood blister. I suspect the findings to be similar to past xrays. I informed patient that if any changes occur on xray I will contact him. I have low concerns for any infection of 1st metatarsal and follow- up xrays should confirm this. 5. I debrided his left hallux toenail as courtesy. 6. F/u in 1 month for diabetic foot exam. WINSOME Young Ma 07/24/2018 9:58 AM Signed Receive xray before next visit. Referring Provider: ARMINDA OBREGON [[id number]] Allergies As of Date: 07/24/2018 (No Known Allergies) Date Reviewed: 07/24/2018 Reviewed by: Kayleen Zavala Ma - Fully Assessed Reason for Visit: Established Patient [175] Primary Visit Diagnosis:Post-operative state [Z98.890] Other Visit Diagnoses:Amputated toe of right foot (HCC) [Z89.421] Diabetic polyneuropathy associated with type 2 diabetes mellitus (HCC) [E11.42] Order(s):XR FOOT GENERAL 3V AP/LAT/OBL RT [[id number]] Order #: [id number] FUTURE Prescriptions as of 07/24/2018 Sig: WARFARIN 5 MG TABLET TAKE 1 TAB BY MOUTH ON SATURDAY* ATORVASTATIN 40 MG TABLET Take 1 tablet by mouth once d* METFORMIN ER 500 MG TABLET,EX* TAKE 2 TABLETS BY MOUTH TWICE* PEN NEEDLE, DIABETIC 31 GAUGE* 1 Each once daily. PEN NEEDLE, DIABETIC 31 GAUGE* 1 Each four times daily. INSULIN GLARGINE (U-100) 100 * Inject 22 Units subcutaneousl* INSULIN ASPART U-100 100 UNI* Inject with meals according t* LOSARTAN 50 MG TABLET Take 1 tablet by mouth once d* BLOOD SUGAR DIAGNOSTIC STRIPS Test blood sugar(s) 5 times d* WARFARIN 5 MG TABLET TAKE 5mg on Sundays, 10 mg on* DULAGLUTIDE 1.5 MG/0.5 ML SUB* Inject 1.5 mg subcutaneously * METOPROLOL SUCCINATE ER 200 M* TAKE 1 TABLET BY MOUTH ONCE D* ASPIRIN 81 MG TABLET,DELAYED * Take 1 tablet by mouth once d* INSULIN SYRINGE U-100 WITH NE* Use 1 syringe for insulin inj* Problem List As Of Date 07/24/2018 Noted Resolved Sciatica [M54.30] INVALID FOR*06/20/2016 Diabetes mellitus with neurological manifestati*INVALID FOR* Abscess [L02.91] INVALID FOR*06/20/2016 Non-healing surgical wound [T81.89XA] INVALID FOR*06/20/2016 Cellulitis and abscess [L03.90, L02.91] INVALID FOR*06/20/2016 Skin lesion [L98.9] INVALID FOR*06/20/2016 Hyperlipidemia with target LDL less than 100 [E*INVALID FOR* Essential hypertension, benign [I10] INVALID FOR* Morbid obesity with BMI of 40.0-44.9, adult (HC*INVALID FOR*08/19/2017 Encounter for monitoring coumadin therapy [Z51.*INVALID FOR* More... Pulmonary embolus, right (HCC) [I26.99] INVALID FOR*08/19/2017 Callus of foot [L84] INVALID FOR* Tinea of nail [B35.1] INVALID FOR* Cholelithiasis [K80.20] INVALID FOR* S/P aortic valve replacement [Z95.2] INVALID FOR*06/20/2016 Status post aortic valve repair [Z98.890] INVALID FOR* Type 2 diabetes mellitus with stage 3 chronic k*INVALID FOR* Obesity, Class II, BMI 35-39.9 [E66.9] INVALID FOR* Chronic anticoagulation [Z79.01] INVALID FOR* Other instructions from your clinician: Receive xray before next visit. Disposition: Return in about 4 weeks (around 08/21/2018) for follow up. Follow-up and Disposition History Recorded Encounter Status:Closed by ARMINDA OBREGON DPM on 07/24/18 PROGRESS Observed: 07/24/2018 Status: COMPLETED Source: [place] 9:36 AM [facility] [place] REPOSITORY O ID: [id number] Author: Kayleen Zavala Ma Service: (none) Author Type: (none) Type: Progress Notes Filed: 07/24/2018 10:07 AM Note Text: AMB ROOMING INTAKE FLOWSHEET DATA Risk Screening Do you have concerns about personal safety or safety in the home?: No Patient here for Post 1st ray amputation on 05/25/18. States that he has no pain. Patient has diabetic shoes. ERYTHROCYTE SED RATE Collected: 07/02/2018 Status: F Source: [place] 1:52 PM [facility] REPOSITORY TYPE CODE TESTS RESULT OUT OF RANGE REFERENCE UNITS LAB L102.0000 0-20 mm/hr Normal SED RATE 20 Performed By: #### L101.9900, L100.0500 #### [facility] [address] [place], [place], [id number] CBC-COMPLETE BLOOD CNT Collected: 07/02/2018 Status: F Source: [place] NO DIFF 1:52 PM [facility] REPOSITORY TYPE CODE TESTS RESULT OUT OF RANGE REFERENCE UNITS LAB L100.1000 4.4-11.0 K/mm3 Normal WBC 8.9 LAB L100.1200 4.6-6.2 M/mm3 Low RBC 4.33 LAB L100.1300 13.0-16.5 g/dl Low HGB 11.5 LAB L100.1400 40-54 % Low HCT 36.2 LAB L100.1500 80-94 fL Normal MCV 83.6 LAB L100.1600 27.0-32.0 pg Low MCH 26.6 LAB L100.1700 32-36 g/gl Low MCHC 31.8 LAB L100.1810 11.6-14.6 % Normal RDW CV 14.6 LAB L100.1820 35.1-43.9 fl High RDW SD 44.9 LAB L100.1900 150-450 K/mm3 Normal PLT 235 LAB L100.2000 6.2-12.0 fl Normal MPV 8.7 Performed By: #### L101.9900, L100.0500 #### [facility] [address] [place], [place], [address] BASIC METABOLIC Collected: 07/02/2018 Status: F Source: [place] PROFILE (BMP) 1:52 PM [facility] REPOSITORY TYPE CODE TESTS RESULT OUT OF RANGE REFERENCE UNITS LAB L501.0100 74-106 mg/dL High GLU 216 Result Comment: Glucose result greater than or equal to 200 mg/dL suggests DIABETES MELLITUS per A.D.A. criteria. Please note revised GLUCOSE reference range effective 2017. LAB L501.1000 7-18 mg/dL High BUN 19 LAB L501.1100 0.70-1.30 mg/dL Normal CREAT,SERUM 1.11 Result Comment: The validity of the calculated GFR AND GFRAA in patients over 70 years has not been determined. Clinical correlation is essential. LAB L501.1110 >60 mL/min Normal EST GFR 70 Result Comment: Non- GFR Calc LAB L501.1115 >60 mL/min Normal EST GFR - AA 84 Result Comment: GFR Calc LAB L501.1300 10-20 RATIO Normal BUN/CRE 17.1 LAB L501.2200 8.5-10.1 mg/dL CA Normal 8.7 LAB L501.5300 136-145 mmol/L NA Normal 139 LAB L501.5600 3.5-5.1 mmol/L K Normal 4.0 LAB L501.5900 98-107 mmol/L CL Normal 103 LAB L501.6100 21.0-32.0 mmol/L Normal CO2 28.0 LAB L501.6200 5-15 Normal GAP 8 Performed By: #### L500.2500 #### [facility] [address] [place] [address]. [place], [address] PROGRESS Observed: 06/27/2018 Status: COMPLETED Source: [place] 1:55 PM [facility] REPOSITORY HNO ID: [id number] Author: Annette Fernandez Service: (none) Author Type: (none) Type: Progress Notes Filed: 06/27/2018 1:55 PM Note Text: Radiology Service Progress Note PATIENT NAME: Richard Roy DATE OF SERVICE: June 27, 2018 TIME: 1:55 PM PATIENT IDENTITY VERIFICATION COMPLETED USING TWO (2) METHODS: Patient confirmed name verbally and Date of . PATIENT GENDER DATA: Male PATIENT RELEVANT IMPLANT DATA REVIEWED: Not Applicable RADIOLOGY DEPARTMENT: CT; Exam(s) Completed: rt foot w/o ct PERIPHERAL IV DATA: Not applicable SIGNED BY: Annette Fernandez June 27, 2018 1:[address] FOOT WO IVCON RT Observed: 06/27/2018 Status: F Source: [place] 1:41 PM [facility] REPOSITORY * * *Final Report* * * DATE OF EXAM: Jun 27 2018 1:41PM [facility] 0074 - CT FOOT WO IVCON RT / PROCEDURE REASON: multiple diagnoses * * * * Physician Interpretation * * * * CT FOOT WO IVCON RT HISTORY: Post-operative state Other osteomyelitis of right foot (HCC) . 4 weeks status post first ray amputation. TECHNIQUE: CT imaging of the right foot without intravenous contrast, multiplanar reconstructions. CT Radiation dose: Integrated Dose-length product (DLP) for this visit = 185 mGy*cm. CT Dose Reduction Employed: Automated exposure control(AEC) and iterative recon COMPARISON: 06/24/2018 right foot radiograph. FINDINGS: Amputated first ray at the mid diaphysis with periosteal reaction extending to the proximal metadiaphysis, nonspecific, but raising concern for stump osteomyelitis. Soft tissue inflammation and edema at the stump with no evidence of soft tissue abscess within limits of unenhanced evaluation. No sinus tract identified. Lisfranc joint arthrosis with osteophytes. IMPRESSION: Features raising concern for stump osteomyelitis at the right first ray. Advise further evaluation by MRI with and without contrast. Pest Management Supervisor: PSCTeddy Transcribe Date/Time: Jun 27 2018 2:26P Dictated by : Kyaw HERNANDEZ MD This examination was interpreted and the report reviewed and electronically signed by: Kyaw HERNANDEZ MD on Jun 27 2018 2:39PM EST [id number] PROGRESS Observed: 06/24/2018 Status: COMPLETED Source: [place] 5:20 PM [facility] REPOSITORY HNO ID: [id number] Author: Arminda Hirschmarianne Service: (none) Author Type: Physician Type: Progress Notes Filed: 06/24/2018 5:24 PM Note Text: Follow up podiatric office visit for: Chief Complaint: This 72 year old who presents for follow up:right 1st ray amputation. Patient has no pain. He has been wearing diabetic shoes without issue. Is scheduled for diabetic foot care today. He denies n/v/f/c. Has been tolerating antibiotics. PAIN EVALUATION No data found. 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 ([facility]) 05/25/2018 - Hyperlipidemia LDL goal < 100 04/01/2012 - Pulmonary embolus, right ([facility]) 09/25/2013 - Status post aortic valve repair 2004 - Thoracic aneurysm without mention of rupture - Type 2 diabetes mellitus with stage 3 chronic kidney disease, with long-term current use of insulin ([facility]) 06/20/2016 - Type II or unspecified type diabetes mellitus without mention of complication, not stated as uncontrolled Current Outpatient Prescriptions: aspirin, enteric coated (ASPIRIN LOW DOSE) 81 mg EC tablet Take 1 tablet by mouth once daily. atorvastatin (LIPITOR) 40 mg tablet Take 1 tablet by mouth once daily. For cholesterol. blood sugar diagnostic ([employer] ULTRA TEST) test strip Test blood sugar(s) 5 times daily. Dx: E11.49. Insulin: Yes dulaglutide (TRULICITY) 1.5 mg/0.5 mL pnij Inject 1.5 mg subcutaneously once each week. Inject once per week. Discard Pen After insulin aspart U-100 (NOVOLOG FLEXPEN U-100 INSULIN) 100 unit/mL inpn Inject with meals according to sliding scale: 100-200=3 units, 201-250=5 units, 251-300=8 units, 301-350=12 units, 351-400=15 units. insulin glargine (LANTUS SOLOSTAR U-100 INSULIN) 100 unit/mL (3 mL) inpn Inject 22 Units subcutaneously daily at bedtime. insulin needles, DISPOSABLE, (BD INSULIN PEN NEEDLE UF) 31 gauge x 5/16 ndle 1 Each once daily. insulin needles, DISPOSABLE, (BD INSULIN PEN NEEDLE UF) 31 gauge x 5/16 ndle 1 Each four times daily. Insulin Syringe-Needle U-100 (BD INSULIN SYRINGE UF II) 0.5 mL 31 gauge x 5/16 syrg Use 1 syringe for insulin injections five (5) times daily as directed. DX: 250.60 Insulin: Yes losartan (COZAAR) 50 mg tablet Take 1 tablet by mouth once daily. metFORMIN ER (GLUCOPHAGE XR) 500 mg 24 hr tablet TAKE 2 TABLETS BY MOUTH TWICE DAILY WITH MEALS. metoprolol succinate ER (TOPROL XL) 200 mg 24 hr tablet TAKE 1 TABLET BY MOUTH ONCE DAILY. warfarin (COUMADIN) 5 mg tablet TAKE 1 TAB BY MOUTH ON SUNDAYS AND THURSDAYS, THEN TAKE 2 TABS BY MOUTH ONCE DAILY ON ALL OTHER DAYS warfarin (COUMADIN) 5 mg tablet TAKE 5mg on Sundays, 10 mg on ALL OTHER DAYS No current facility-administered medications for this visit. ALLERGIES No Known Allergies PAST SURGICAL HISTORY Procedure Laterality Date - AMPUTATION METATARSAL+TOE,SINGLE Right 05/25/2018 with delayed closure on 05/28/18. Dr. Obregon at [facility] - COLONOSCOP W/ OR W/O [facility] SPEC 03/12/11 - DEBRIDE SKIN AND SUBQ TISSU 09-11-10 LEFT GROIN - DEBRIDEMENT OF SKIN, FULL THIC 09-12-10 LEFT GROIN - I AND D ABSCESS, SINGLE 09/08/10 IANDD abscess left groin - I AND D ABSCESS, SINGLE 10/23/10 IANDD medial to left groin wound - I AND D ABSCESS, SINGLE 01/22/11 IANDD LLQ superficial abscess - REM LESION TRUNK,ARM, LEG <0.5 CM 03/21/11 Exc. fibroepithelial polyp LLQ abd - REMOVAL DEVITAL TISSUE, ARTUR WND CHAPITO <20CM 11/22/10 Debridement posterior neck/IANDD LLQ abd - REVISION OF AORTIC VALVE 2005 Repair of Aortic Value/Thoracic anerusym repair Physical Exam: Constitutional: Pt is a well developed 72 year old male who is alert, oriented, cooperative and in no apparent distress. OBJECTIVE: NVSI unchanged from previous visit. Dermatological: Nails 1-5 left and 2-5 right are thick, dystrophic. Webspaces clean and dry 1-4 b/l. Skin appears dry with scaling along lateral arch b/l. No ulcerations noted. Surgical incision of right 1st ray amputation is now healed. Musculoskeletal/Orthopaedic: Patient has no pain to palpation of b/l foot First ray amputation right foot is now healed ASSESSMENT: (Z98.890) Post-operative state (primary encounter diagnosis (T81.30XA) Wound dehiscence (Z89.421) Amputated toe of right foot (HCC) diabetes PLAN: 1. History and physical examination completed today. 2. Right foot first ray amputation is now healed. He has no open sores. Can resume diabetic shoes without restrictions. Discussed case with ID. ID will review case to determine length of antibiotics required. Will repeat xray of right foot today 3. Recommend that patient apply lotion to his feet daily. 4. Toenails 1-5 left and 2-5 right debrided in length and thickness 5. Diabetic shoes ordered today with toe filler. 6. F/u in 1 month or sooner if problems arise. Arminda Obregon DPM XR FOOT 3V AP/LAT/OBL Observed: 06/24/2018 Status: F Source: [place] RT 2:33 PM [facility] [place] REPOSITORY * * *Final Report* * * DATE OF EXAM: Jun 24 2018 2:33PM [id number] - XR FOOT 3V AP/LAT/OBL RT / PROCEDURE REASON: multiple diagnoses * * * * Physician Interpretation * * * * HISTORY: 72-YEAR-OLD MALE WITH Post-operative state Wound dehiscence . pt states had surg 03/25 this year to remove grt toe and the 3-4 weeks ago had more bone removed to help skin cover. TECHNIQUE: XR FOOT 3V AP/LAT/OBL RT Laterality: RIGHT Number of different views (projections): 3 COMPARISON: 05/30/2018 RESULT: Status post amputation of the first ray from the mid diaphysis of the first metatarsal. There is mild degree of heterotopic ossification. There is irregularity density in the soft tissues with soft tissue swelling and irregularity of the osteotomized edge of the first metatarsal with radiolucency. A radiolucency is present on the previous exam however the irregularity is not readily apparent and the findings suggest possibility of abscess and osteomyelitis or least reactive changes in the first metatarsal secondary to the inflammatory process. Marked soft tissue swelling in the dorsum of the foot. Drains have been removed since previous examination. Midfoot degenerative changes are present. Calcaneal enthesophytes. Mild pes planus. IMPRESSION: FINDINGS SUGGESTIVE OF ABSCESS FORMATION AND POSSIBLE REACTIVE BONY CHANGE VERSUS EARLY CHANGES OF OSTEOMYELITIS IN THE RESIDUAL FIRST METATARSAL. Pest Management Supervisor: BLAKE Transcribe Date/Time: Jun 25 2018 2:28P Dictated by : JOJO HOWARD MD This examination was interpreted and the report reviewed and electronically signed by: JOJO HOWARD MD on Jun 25 2018 2:32PM EST [id number] PROGRESS Observed: 06/24/2018 Status: COMPLETED Source: [place] 2:24 PM [facility] REPOSITORY HNO ID: [id number] Author: Debra Bonilla (Rt) Coty Gonsales Service: (none) Author Type: Piece Maker Type: Progress Notes Filed: 06/24/2018 2:33 PM Note Text: Radiology Service Progress Note PATIENT NAME: Richard Roy DATE OF SERVICE: June 24, 2018 TIME: 2:24 PM PATIENT IDENTITY VERIFICATION COMPLETED USING TWO (2) METHODS: Patient confirmed name verbally and Date of . PATIENT GENDER DATA: Male PATIENT RELEVANT IMPLANT DATA REVIEWED: Not Applicable RADIOLOGY DEPARTMENT: General X-ray: Exam(s) Completed: Lower Extremity X-Ray(s): Foot, Right: PERIPHERAL IV DATA: Not applicable SIGNED BY: RT Gabriel June 24, 2018 2:24 PM CNOV Observed: 06/24/2018 Status: COMPLETED Source: [place] 1:40 PM [facility] REPOSITORY Office Visit (PODIWS) KIRILLRICHARD Simons ([id number]) 1945 M Date Time Provider Department 06/24/18 1:40 PM ARMINDA OBREGON During your visit today, we recorded the following information about you: Arminda Obregon DPM 06/24/2018 5:24 PM Signed Follow up podiatric office visit for: Chief Complaint: This 72 year old who presents for follow up:right 1st ray amputation. Patient has no pain. He has been wearing diabetic shoes without issue. Is scheduled for diabetic foot care today. He denies n/v/f/c. Has been tolerating antibiotics. PAIN EVALUATION No data found. 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 ([facility]LY [facility]) 05/25/2018 - Hyperlipidemia LDL goal < 100 04/01/2012 - Pulmonary embolus, right ([facility]) 09/25/2013 - Status post aortic valve repair 2004 - Thoracic aneurysm without mention of rupture - Type 2 diabetes mellitus with stage 3 chronic kidney disease, with long-term current use of insulin ([facility]) 06/20/2016 - Type II or unspecified type diabetes mellitus without mention of complication, not stated as uncontrolled Current Outpatient Prescriptions: aspirin, enteric coated (ASPIRIN LOW DOSE) 81 mg EC tablet Take 1 tablet by mouth once daily. atorvastatin (LIPITOR) 40 mg tablet Take 1 tablet by mouth once daily. For cholesterol. blood sugar diagnostic ([employer] ULTRA TEST) test strip Test blood sugar(s) 5 times daily. Dx: E11.49. Insulin: Yes dulaglutide (TRULICITY) 1.5 mg/0.5 mL pnij Inject 1.5 mg subcutaneously once each week. Inject once per week. Discard Pen After insulin aspart U-100 (NOVOLOG FLEXPEN U-100 INSULIN) 100 unit/mL inpn Inject with meals according to sliding scale: 100-200=3 units, 201- 250=5 units, 251-300=8 units, 301-350=12 units, 351-400=15 units. insulin glargine (LANTUS SOLOSTAR U-100 INSULIN) 100 unit/mL (3 mL) inpn Inject 22 Units subcutaneously daily at bedtime. insulin needles, DISPOSABLE, (BD INSULIN PEN NEEDLE UF) 31 gauge x 5/16 ndle 1 Each once daily. insulin needles, DISPOSABLE, (BD INSULIN PEN NEEDLE UF) 31 gauge x 5/16 ndle 1 Each four times daily. Insulin Syringe-Needle U-100 (BD INSULIN SYRINGE UF II) 0.5 mL 31 gauge x 5/16 syrg Use 1 syringe for insulin injections five (5) times daily as directed. DX: 250.60 Insulin: Yes losartan (COZAAR) 50 mg tablet Take 1 tablet by mouth once daily. metFORMIN ER (GLUCOPHAGE XR) 500 mg 24 hr tablet TAKE 2 TABLETS BY MOUTH TWICE DAILY WITH MEALS. metoprolol succinate ER (TOPROL XL) 200 mg 24 hr tablet TAKE 1 TABLET BY MOUTH ONCE DAILY. warfarin (COUMADIN) 5 mg tablet TAKE 1 TAB BY MOUTH ON SUNDAYS AND THURSDAYS, THEN TAKE 2 TABS BY MOUTH ONCE DAILY ON ALL OTHER DAYS warfarin (COUMADIN) 5 mg tablet TAKE 5mg on Sundays, 10 mg on ALL OTHER DAYS No current facility-administered medications for this visit. ALLERGIES No Known Allergies PAST SURGICAL HISTORY Procedure Laterality Date - AMPUTATION METATARSAL+TOE,SINGLE Right 05/25/2018 with delayed closure on 05/28/18. Dr. Obregon at [facility] - COLONOSCOP W/ OR W/O BRSH SPEC 03/12/11 - DEBRIDE SKIN AND SUBQ TISSU 09-11-10 LEFT GROIN - DEBRIDEMENT OF SKIN, FULL THIC 09-12-10 LEFT GROIN - I AND D ABSCESS, SINGLE 09/08/10 IANDD abscess left groin - I AND D ABSCESS, SINGLE 10/23/10 IANDD medial to left groin wound - I AND D ABSCESS, SINGLE 01/22/11 IANDD LLQ superficial abscess - REM LESION TRUNK,ARM, LEG <0.5 CM 03/21/11 Exc. fibroepithelial polyp LLQ abd - REMOVAL DEVITAL TISSUE, ARTUR WND CHAPITO <20CM 11/22/10 Debridement posterior neck/IANDD LLQ abd - REVISION OF AORTIC VALVE 2004 Repair of Aortic Value/Thoracic anerusym repair Physical Exam: Constitutional: Pt is a well developed 72 year old male who is alert, oriented, cooperative and in no apparent distress. OBJECTIVE: NVSI unchanged from previous visit. Dermatological: Nails 1-5 left and 2-5 right are thick, dystrophic. Webspaces clean and dry 1-4 b/l. Skin appears dry with scaling along lateral arch b/l. No ulcerations noted. Surgical incision of right 1st ray amputation is now healed. Musculoskeletal/Orthopaedic: Patient has no pain to palpation of b/l foot First ray amputation right foot is now healed ASSESSMENT: (Z98.890) Post-operative state (primary encounter diagnosis (T81.30XA) Wound dehiscence (Z89.421) Amputated toe of right foot (HCC) diabetes PLAN: 1. History and physical examination completed today. 2. Right foot first ray amputation is now healed. He has no open sores. Can resume diabetic shoes without restrictions. Discussed case with ID. ID will review case to determine length of antibiotics required. Will repeat xray of right foot today 3. Recommend that patient apply lotion to his feet daily. 4. Toenails 1-5 left and 2-5 right debrided in length and thickness 5. Diabetic shoes ordered today with toe filler. 6. F/u in 1 month or sooner if problems arise. rAminda Obregon DPM Referring Provider: ARMINDA OBREGON [[id number]] Allergies As of Date: 06/24/2018 (No Known Allergies) Date Reviewed: 06/24/2018 Reviewed by: Nadeen Vaughn LPN - Fully Assessed Reason for Visit: Surgical Followup [104] Cmt: one week follow up Primary Visit Diagnosis:Post-operative state [Z98.890] Other Visit Diagnoses:Wound dehiscence [T81.30XA] Amputated toe of right foot (HCC) [Z89.421] Order(s):XR FOOT GENERAL 3V AP/LAT/OBL RT [0419958] Order #: [id number] FUTURE DIAB SHOE FOR DENSITY INSERT [[id number]] Order #: [id number] Prescriptions as of 06/24/2018 Sig: ASPIRIN 81 MG TABLET,DELAYED * Take 1 tablet by mouth once d* ATORVASTATIN 40 MG TABLET Take 1 tablet by mouth once d* BLOOD SUGAR DIAGNOSTIC STRIPS Test blood sugar(s) 5 times d* DULAGLUTIDE 1.5 MG/0.5 ML SUB* Inject 1.5 mg subcutaneously * INSULIN ASPART U-100 100 UNI* Inject with meals according t* INSULIN GLARGINE (U-100) 100 * Inject 22 Units subcutaneousl* PEN NEEDLE, DIABETIC 31 GAUGE* 1 Each once daily. PEN NEEDLE, DIABETIC 31 GAUGE* 1 Each four times daily. INSULIN SYRINGE U-100 WITH NE* Use 1 syringe for insulin inj* LOSARTAN 50 MG TABLET Take 1 tablet by mouth once d* METFORMIN ER 500 MG TABLET,EX* TAKE 2 TABLETS BY MOUTH TWICE* METOPROLOL SUCCINATE ER 200 M* TAKE 1 TABLET BY MOUTH ONCE D* WARFARIN 5 MG TABLET TAKE 1 TAB BY MOUTH ON SATURDAY* WARFARIN 5 MG TABLET TAKE 5mg on Sundays, 10 mg on* Problem List As Of Date 06/24/2018 Noted Resolved Sciatica [M54.30] INVALID FOR*06/20/2016 Diabetes mellitus with neurological manifestati*INVALID FOR* Abscess [L02.91] INVALID FOR*06/20/2016 Non-healing surgical wound [T81.89XA] INVALID FOR*06/20/2016 Cellulitis and abscess [L03.90, L02.91] INVALID FOR*06/20/2016 Skin lesion [L98.9] INVALID FOR*06/20/2016 Hyperlipidemia with target LDL less than 100 [E*INVALID FOR* Essential hypertension, benign [I10] INVALID FOR* Morbid obesity with BMI of 40.0-44.9, adult (HC*INVALID FOR*08/19/2017 Encounter for monitoring coumadin therapy [Z51.*INVALID FOR* More... Pulmonary embolus, right (HCC) [I26.99] INVALID FOR*08/19/2017 Callus of foot [L84] INVALID FOR* Tinea of nail [B35.1] INVALID FOR* Cholelithiasis [K80.20] INVALID FOR* S/P aortic valve replacement [Z95.2] INVALID FOR*06/20/2016 Status post aortic valve repair [Z98.890] INVALID FOR* Type 2 diabetes mellitus with stage 3 chronic k*INVALID FOR* Obesity, Class II, BMI 35-39.9 [E66.9] INVALID FOR* Chronic anticoagulation [Z79.01] INVALID FOR* Disposition: Return in about 4 weeks (around 07/22/2018). Follow-up and Disposition History Recorded Encounter Status:Closed by ARMINDA OBREGON DPM on 06/24/18 CBC-COMPLETE BLOOD CNT Collected: 06/23/2018 Status: F Source: [place] NO DIFF 12:30 PM [facility] REPOSITORY TYPE CODE TESTS RESULT OUT OF RANGE REFERENCE UNITS LAB L100.1000 4.4-11.0 K/mm3 Normal WBC 8.6 LAB L100.1200 4.6-6.2 M/mm3 Low RBC 4.05 LAB L100.1300 13.0-16.5 g/dl Low HGB 10.6 LAB L100.1400 40-54 % Low HCT 34.6 LAB L100.1500 80-94 fL Normal MCV 85.4 LAB L100.1600 27.0-32.0 pg Low MCH 26.2 LAB L100.1700 32-36 g/gl Low MCHC 30.6 LAB L100.1810 11.6-14.6 % Normal RDW CV 14.6 LAB L100.1820 35.1-43.9 fl High RDW SD 46.0 LAB L100.1900 150-450 K/mm3 Normal PLT 241 LAB L100.2000 6.2-12.0 fl Normal MPV 9.5 Performed By: #### L100.0500, L101.9900 #### [facility] [address] [place], [address] ERYTHROCYTE SED RATE Collected: 06/23/2018 Status: F Source: [place] 12:30 PM [facility] REPOSITORY TYPE CODE TESTS RESULT OUT OF RANGE REFERENCE UNITS LAB L102.0000 0-20 mm/hr High SED RATE 21 Performed By: #### L100.0500, L101.9900 #### [facility] [address] [place], [address] BASIC METABOLIC Collected: 06/23/2018 Status: F Source: [place] PROFILE (BMP) 12:30 PM [facility] REPOSITORY Order Comment: [id number] TYPE CODE TESTS RESULT OUT OF RANGE REFERENCE UNITS LAB L501.0100 74-106 mg/dL High GLU 221 Result Comment: Glucose result greater than or equal to 200 mg/dL suggests DIABETES MELLITUS per A.D.A. criteria. Please note revised GLUCOSE reference range effective 2017. LAB L501.1000 7-18 mg/dL High BUN 21 LAB L501.1100 0.70-1.30 mg/dL Normal CREAT,SERUM 1.12 Result Comment: The validity of the calculated GFR AND GFRAA in patients over 70 years has not been determined. Clinical correlation is essential. LAB L501.1110 >60 mL/min Normal EST GFR 69 Result Comment: Non- GFR Calc LAB L501.1115 >60 mL/min Normal EST GFR - AA 83 Result Comment: GFR Calc LAB L501.1300 10-20 RATIO Normal BUN/CRE 18.8 LAB L501.2200 8.5-10.1 mg/dL Low CA 8.4 LAB L501.5300 136-145 mmol/L NA Normal 139 LAB L501.5600 3.5-5.1 mmol/L K Normal 4.0 LAB L501.5900 98-107 mmol/L CL Normal 104 LAB L501.6100 21.0-32.0 mmol/L Normal CO2 28.0 LAB L501.6200 5-15 Normal GAP 7 Performed By: #### L500.2500 #### [facility] [address] [place], [address] PROTHROMBIN TIME W/INR Collected: 06/19/2018 Status: F Source: [place] 4:00 PM [facility] REPOSITORY TYPE CODE TESTS RESULT OUT OF RANGE REFERENCE UNITS LAB L300.4150 11.7-14.9 SECONDS High PROTIME 32.4 LAB L300.4200 Normal INR 3.1 Result Comment: RESULTS CALLED TO DR. SYED FLIGHT DECK OFFICER FOR 06/19/18 1746 Tuan Salamanca. REPORT READ BACK BY SAME . Performed By: #### L300.3900 #### [facility] [address] [place], [address] CNPN Observed: 06/19/2018 Status: COMPLETED Source: [place] 12:00 AM [facility] REPOSITORY Telephone (FAMPWS) RICHARD ROY ([id number]) 1945 M Date Time Provider Department 06/19/18 [facility] your visit today, we recorded the following information about you: Kee Benito MD 06/19/2018 6:08 PM Signed DOC received call fro [facility] lab. Patient's INR was 3.1 Patient taking 10 mg a day. Goal is INR of 2.5-3.5 Called patient and advised of results and to continue coumadin 10 mg daily. Will need INR in 2 weeks. Please call [facility] and inform them of need to get INR in 2 weeks. Also update warfarin tracker. Dmitry Roberto III MD 06/19/2018 6:20 PM Signed noted and agree DOMINGO Lucio MD, LPN 06/20/2018 11:30 AM Addendum Spoke with Suzanne from [facility] and advised her of Dr Benito's message. She verbalizes understanding. States they will check INR on 06/30/18. After that pt is going to be discharged form . They will notify Dr Roberto of this so he will be able to order pt's INR to be done at the lab or coumadin clinic. Tracker updated. Sabi Hoyos LPN Allergies As of Date: 06/19/2018 (No Known Allergies) Date Reviewed: 06/17/2018 Reviewed by: Dwayne (Rn) Patrice - Fully Assessed Reason for Visit: Anticoagulation [8] Order(s):PROTHROMBIN TIME/PT [SQPT] Order #: [id number] Prescriptions as of 06/19/2018 Sig: ATORVASTATIN 10 MG TABLET Patient taking 40 mg daily METFORMIN ER 500 MG TABLET,EX* TAKE 2 TABLETS BY MOUTH TWICE* PEN NEEDLE, DIABETIC 31 GAUGE* 1 Each once daily. PEN NEEDLE, DIABETIC 31 GAUGE* 1 Each four times daily. INSULIN GLARGINE (U-100) 100 * Inject 22 Units subcutaneousl* INSULIN ASPART U-100 100 UNI* Inject with meals according t* LOSARTAN 50 MG TABLET Take 1 tablet by mouth once d* BLOOD SUGAR DIAGNOSTIC STRIPS Test blood sugar(s) 5 times d* WARFARIN 5 MG TABLET TAKE 5mg on Sundays, 10 mg on* DULAGLUTIDE 1.5 MG/0.5 ML SUB* Inject 1.5 mg subcutaneously * METOPROLOL SUCCINATE ER 200 M* TAKE 1 TABLET BY MOUTH ONCE D* WARFARIN 5 MG TABLET TAKE 1 TAB BY MOUTH ON SATURDAY* ASPIRIN 81 MG TABLET,DELAYED * Take 1 tablet by mouth once d* INSULIN SYRINGE U-100 WITH NE* Use 1 syringe for insulin inj* Problem List As Of Date 06/19/2018 Noted Resolved Sciatica [M54.30] INVALID FOR*06/20/2016 Diabetes mellitus with neurological manifestati*INVALID FOR* Abscess [L02.91] INVALID FOR*06/20/2016 Non-healing surgical wound [T81.89XA] INVALID FOR*06/20/2016 Cellulitis and abscess [L03.90, L02.91] INVALID FOR*06/20/2016 Skin lesion [L98.9] INVALID FOR*06/20/2016 Hyperlipidemia with target LDL less than 100 [E*INVALID FOR* Essential hypertension, benign [I10] INVALID FOR* Morbid obesity with BMI of 40.0-44.9, adult (HC*INVALID FOR*08/19/2017 Encounter for monitoring coumadin therapy [Z51.*INVALID FOR* More... Pulmonary embolus, right (HCC) [I26.99] INVALID FOR*08/19/2017 Callus of foot [L84] INVALID FOR* Tinea of nail [B35.1] INVALID FOR* Cholelithiasis [K80.20] INVALID FOR* S/P aortic valve replacement [Z95.2] INVALID FOR*06/20/2016 Status post aortic valve repair [Z98.890] INVALID FOR* Type 2 diabetes mellitus with stage 3 chronic k*INVALID FOR* Obesity, Class II, BMI 35-39.9 [E66.9] INVALID FOR* Chronic anticoagulation [Z79.01] INVALID FOR* Encounter Status:Closed by DMITRY ROBERTO III, MD on 06/19/18 PROGRESS Observed: 06/17/2018 Status: COMPLETED Source: [place] 2:00 PM [facility] REPOSITORY [facility] ID: [id number] Author: Arminda Obregon Service: (none) Author Type: Physician Type: Progress Notes Filed: 06/18/2018 1:34 PM Note Text: Follow up podiatric office visit for: Chief Complaint: This 72 year old who presents for follow up:right 1st ray amputation. Patient has no complains of pain. Patient is tolerating antibiotics nicely. Patient is scheduled to continue antibiotics until 07/06. Patient denies n/v/f/c. Patient is wearing his diabetic shoes without complications. Patient has no other complaints. PAIN EVALUATION No data found. 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 ([facility]LY [facility]) 05/25/2018 - Hyperlipidemia LDL goal < 100 04/01/2012 - Pulmonary embolus, right ([facility]) 09/25/2013 - Status post aortic valve repair 2004 - Thoracic aneurysm without mention of rupture - Type 2 diabetes mellitus with stage 3 chronic kidney disease, with long-term current use of insulin ([facility]) 06/20/2016 - Type II or unspecified type diabetes mellitus without mention of complication, not stated as uncontrolled Current Outpatient Prescriptions: metFORMIN ER (GLUCOPHAGE XR) 500 mg 24 hr tablet TAKE 2 TABLETS BY MOUTH TWICE DAILY WITH MEALS. insulin needles, DISPOSABLE, (BD INSULIN PEN NEEDLE UF) 31 gauge x 5/16 ndle 1 Each once daily. insulin needles, DISPOSABLE, (BD INSULIN PEN NEEDLE UF) 31 gauge x 5/16 ndle 1 Each four times daily. insulin glargine ([employer]ANTUS SOLOSTAR U-100 INSULIN) 100 unit/mL (3 mL) inpn Inject 22 Units subcutaneously daily at bedtime. insulin aspart U-100 (NOVOLOG FLEXPEN U-100 INSULIN) 100 unit/mL inpn Inject with meals according to sliding scale: 100-200=3 units, 201-250=5 units, 251-300=8 units, 301-350=12 units, 351-400=15 units. losartan (COZAAR) 50 mg tablet Take 1 tablet by mouth once daily. blood sugar diagnostic ([employer] ULTRA TEST) test strip Test blood sugar(s) 5 times daily. Dx: E11.49. Insulin: Yes warfarin (COUMADIN) 5 mg tablet TAKE 5mg on Sundays, 10 mg on ALL OTHER DAYS dulaglutide (TRULICITY) 1.5 mg/0.5 mL pnij Inject 1.5 mg subcutaneously once each week. Inject once per week. Discard Pen After metoprolol succinate ER (TOPROL XL) 200 mg 24 hr tablet TAKE 1 TABLET BY MOUTH ONCE DAILY. warfarin (COUMADIN) 5 mg tablet TAKE 1 TAB BY MOUTH ON SUNDAYS AND THURSDAYS, THEN TAKE 2 TABS BY MOUTH ONCE DAILY ON ALL OTHER DAYS aspirin, enteric coated (ASPIRIN LOW DOSE) 81 mg EC tablet Take 1 tablet by mouth once daily. Insulin Syringe-Needle U-100 (BD INSULIN SYRINGE UF II) 0.5 mL 31 gauge x 5/16 syrg Use 1 syringe for insulin injections five (5) times daily as directed. DX: 250.60 Insulin: Yes atorvastatin (LIPITOR) 10 mg tablet TAKE 1 TABLET BY MOUTH DAILY AT BEDTIME. FOR CHOLESTEROL. (Patient taking differently: Patient taking 40 mg daily) No current facility-administered medications for this visit. ALLERGIES No Known Allergies PAST SURGICAL HISTORY Procedure Laterality Date - AMPUTATION METATARSAL+TOE,SINGLE Right 05/25/2018 with delayed closure on 05/28/18. Dr. Obregon at [facility] - COLONOSCOP W/ OR W/O BRSH SPEC 03/12/11 - DEBRIDE SKIN AND SUBQ TISSU 09-11-10 LEFT GROIN - DEBRIDEMENT OF SKIN, FULL THIC 09-12-10 LEFT GROIN - I AND D ABSCESS, SINGLE 09/08/10 IANDD abscess left groin - I AND D ABSCESS, SINGLE 10/23/10 IANDD medial to left groin wound - I AND D ABSCESS, SINGLE 01/22/11 IANDD LLQ superficial abscess - REM LESION TRUNK,ARM, LEG <0.5 CM 03/21/11 Exc. fibroepithelial polyp LLQ abd - REMOVAL DEVITAL TISSUE, ARTUR WND CHAPITO <20CM 11/22/10 Debridement posterior neck/IANDD LLQ abd - REVISION OF AORTIC VALVE 2004 Repair of Aortic Value/Thoracic anerusym repair Physical Exam: Constitutional: Pt is a well developed 72 year old male who is alert, oriented, cooperative and in no apparent distress. OBJECTIVE: NVSI unchanged from previous visit. Dermatological: Surgical incision is healed proximally and distally. Centrally, the incision is approximated and appears to be healing nicely without signs of infection. There is dryness of right foot. No other ulcerations are noted b/l. Musculoskeletal/Orthopaedic: Patient has no pain to palpation of right 1st ray amputation site No calf pain present to right foot ASSESSMENT: (Z98.890) Post-operative state (primary encounter diagnosis) PLAN: 1. History and physical examination completed today. 2. Patient is progressing nicely. At this time, his incision is healed proximally and distally. Centrally, I am going to keep suture in for one additional week and they can apply steres in combination with suture. 3. He is permitted to apply lotion to his foot daily. 4. I will have patient f/u in 1 week for remaining suture removal 5. He will continue with antibiotics per ID. Arminda Obregon DPM CNOV Observed: 06/17/2018 Status: COMPLETED Source: [place] 1:55 PM [facility] REPOSITORY Office Visit (PODIWS) RICHARD ROY ([id number]) 1945 M Date Time Provider Department 06/17/18 1:55 PM ARMINDA OBREGON During your visit today, we recorded the following information about you: Arminda Obregon DPM 06/18/2018 1:34 PM Signed Follow up podiatric office visit for: Chief Complaint: This 72 year old who presents for follow up:right 1st ray amputation. Patient has no complains of pain. Patient is tolerating antibiotics nicely. Patient is scheduled to continue antibiotics until 07/06. Patient denies n/v/f/c. Patient is wearing his diabetic shoes without complications. Patient has no other complaints. PAIN EVALUATION No data found. 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) 05/25/2018 - Hyperlipidemia LDL goal < 100 04/01/2012 - Pulmonary embolus, right ([facility]) 09/25/2013 - Status post aortic valve repair 2004 - Thoracic aneurysm without mention of rupture - Type 2 diabetes mellitus with stage 3 chronic kidney disease, with long-term current use of insulin ([facility]) 06/20/2016 - Type II or unspecified type diabetes mellitus without mention of complication, not stated as uncontrolled Current Outpatient Prescriptions: metFORMIN ER (GLUCOPHAGE XR) 500 mg 24 hr tablet TAKE 2 TABLETS BY MOUTH TWICE DAILY WITH MEALS. insulin needles, DISPOSABLE, (BD INSULIN PEN NEEDLE UF) 31 gauge x 5/16 ndle 1 Each once daily. insulin needles, DISPOSABLE, (BD INSULIN PEN NEEDLE UF) 31 gauge x 5/16 ndle 1 Each four times daily. insulin glargine (LANTUS SOLOSTAR U-100 INSULIN) 100 unit/mL (3 mL) inpn Inject 22 Units subcutaneously daily at bedtime. insulin aspart U-100 (NOVOLOG FLEXPEN U-100 INSULIN) 100 unit/mL inpn Inject with meals according to sliding scale: 100-200=3 units, 201- 250=5 units, 251-300=8 units, 301-350=12 units, 351-400=15 units. losartan (COZAAR) 50 mg tablet Take 1 tablet by mouth once daily. blood sugar diagnostic (AhandyhandUCH ULTRA TEST) test strip Test blood sugar(s) 5 times daily. Dx: E11.49. Insulin: Yes warfarin (COUMADIN) 5 mg tablet TAKE 5mg on Sundays, 10 mg on ALL OTHER DAYS dulaglutide (TRULICITY) 1.5 mg/0.5 mL pnij Inject 1.5 mg subcutaneously once each week. Inject once per week. Discard Pen After metoprolol succinate ER (TOPROL XL) 200 mg 24 hr tablet TAKE 1 TABLET BY MOUTH ONCE DAILY. warfarin (COUMADIN) 5 mg tablet TAKE 1 TAB BY MOUTH ON SUNDAYS AND THURSDAYS, THEN TAKE 2 TABS BY MOUTH ONCE DAILY ON ALL OTHER DAYS aspirin, enteric coated (ASPIRIN LOW DOSE) 81 mg EC tablet Take 1 tablet by mouth once daily. Insulin Syringe-Needle U-100 (BD INSULIN SYRINGE UF II) 0.5 mL 31 gauge x 5/16 syrg Use 1 syringe for insulin injections five (5) times daily as directed. DX: 250.60 Insulin: Yes atorvastatin (LIPITOR) 10 mg tablet TAKE 1 TABLET BY MOUTH DAILY AT BEDTIME. FOR CHOLESTEROL. (Patient taking differently: Patient taking 40 mg daily) No current facility-administered medications for this visit. ALLERGIES No Known Allergies PAST SURGICAL HISTORY Procedure Laterality Date - AMPUTATION METATARSAL+TOE,SINGLE Right 05/25/2018 with delayed closure on 05/28/18. Dr. Obregon at [facility] - COLONOSCOP W/ OR W/O BRSH SPEC 03/12/11 - DEBRIDE SKIN AND SUBQ TISSU 09-11-10 LEFT GROIN - DEBRIDEMENT OF SKIN, FULL THIC 09-12-10 LEFT GROIN - I AND D ABSCESS, SINGLE 09/08/10 IANDD abscess left groin - I AND D ABSCESS, SINGLE 10/23/10 IANDD medial to left groin wound - I AND D ABSCESS, SINGLE 01/22/11 IANDD LLQ superficial abscess - REM LESION TRUNK,ARM, LEG <0.5 CM 03/21/11 Exc. fibroepithelial polyp LLQ abd - REMOVAL DEVITAL TISSUE, ARTUR WND CHAPITO <20CM 11/22/10 Debridement posterior neck/IANDD LLQ abd - REVISION OF AORTIC VALVE 2005 Repair of Aortic Value/Thoracic anerusym repair Physical Exam: Constitutional: Pt is a well developed 72 year old male who is alert, oriented, cooperative and in no apparent distress. OBJECTIVE: NVSI unchanged from previous visit. Dermatological: Surgical incision is healed proximally and distally. Centrally, the incision is approximated and appears to be healing nicely without signs of infection. There is dryness of right foot. No other ulcerations are noted b/l. Musculoskeletal/Orthopaedic: Patient has no pain to palpation of right 1st ray amputation site No calf pain present to right foot ASSESSMENT: (Z98.890) Post-operative state (primary encounter diagnosis) PLAN: 1. History and physical examination completed today. 2. Patient is progressing nicely. At this time, his incision is healed proximally and distally. Centrally, I am going to keep suture in for one additional week and they can apply steres in combination with suture. 3. He is permitted to apply lotion to his foot daily. 4. I will have patient f/u in 1 week for remaining suture removal 5. He will continue with antibiotics per ID. WINSOME Young RN 06/17/2018 2:24 PM Signed Leave Steri Strips in place. Referring Provider: ARMINDA OBREGON [[id number]] Allergies As of Date: 06/17/2018 (No Known Allergies) Date Reviewed: 06/17/2018 Reviewed by: Dwayne (Rn) Patrice - Fully Assessed Reason for Visit: Surgical Followup [104] Primary Visit Diagnosis:Post-operative state [Z98.890] Prescriptions as of 06/17/2018 Sig: METFORMIN ER 500 MG TABLET,EX* TAKE 2 TABLETS BY MOUTH TWICE* PEN NEEDLE, DIABETIC 31 GAUGE* 1 Each once daily. PEN NEEDLE, DIABETIC 31 GAUGE* 1 Each four times daily. INSULIN GLARGINE (U-100) 100 * Inject 22 Units subcutaneousl* INSULIN ASPART U-100 100 UNI* Inject with meals according t* LOSARTAN 50 MG TABLET Take 1 tablet by mouth once d* BLOOD SUGAR DIAGNOSTIC STRIPS Test blood sugar(s) 5 times d* WARFARIN 5 MG TABLET TAKE 5mg on Sundays, 10 mg on* DULAGLUTIDE 1.5 MG/0.5 ML SUB* Inject 1.5 mg subcutaneously * METOPROLOL SUCCINATE ER 200 M* TAKE 1 TABLET BY MOUTH ONCE D* WARFARIN 5 MG TABLET TAKE 1 TAB BY MOUTH ON SATURDAY* ASPIRIN 81 MG TABLET,DELAYED * Take 1 tablet by mouth once d* INSULIN SYRINGE U-100 WITH NE* Use 1 syringe for insulin inj* X ATORVASTATIN 10 MG TABLET TAKE 1 TABLET BY MOUTH DAILY * Patient taking differently: Patient taking 40 mg daily Problem List As Of Date 06/17/2018 Noted Resolved Sciatica [M54.30] INVALID FOR*06/20/2016 Diabetes mellitus with neurological manifestati*INVALID FOR* Abscess [L02.91] INVALID FOR*06/20/2016 Non-healing surgical wound [T81.89XA] INVALID FOR*06/20/2016 Cellulitis and abscess [L03.90, L02.91] INVALID FOR*06/20/2016 Skin lesion [L98.9] INVALID FOR*06/20/2016 Hyperlipidemia with target LDL less than 100 [E*INVALID FOR* Essential hypertension, benign [I10] INVALID FOR* Morbid obesity with BMI of 40.0-44.9, adult (HC*INVALID FOR*08/19/2017 Encounter for monitoring coumadin therapy [Z51.*INVALID FOR* More... Pulmonary embolus, right (HCC) [I26.99] INVALID FOR*08/19/2017 Callus of foot [L84] INVALID FOR* Tinea of nail [B35.1] INVALID FOR* Cholelithiasis [K80.20] INVALID FOR* S/P aortic valve replacement [Z95.2] INVALID FOR*06/20/2016 Status post aortic valve repair [Z98.890] INVALID FOR* Type 2 diabetes mellitus with stage 3 chronic k*INVALID FOR* Obesity, Class II, BMI 35-39.9 [E66.9] INVALID FOR* Chronic anticoagulation [Z79.01] INVALID FOR* Other instructions from your clinician: Leave Steri Strips in place. Encounter Status:Closed by ARMINDA OBREGON DPM on 06/18/18 CNPN Observed: 06/17/2018 Status: COMPLETED Source: [place] 12:00 AM [facility] RE[facility]IT[facility] RICHARD ROY ([id number]) 1945 M Date Time Provider Department 06/17/18 [facility] During your visit today, we recorded the following information about you: Denita 06/17/2018 10:33 AM Signed Patient has been identified by name and date of : Yes Pending Prescriptions Disp Refills ATORVASTATIN 10 MG TABLET 30 tablet 11 NUHA: No RX INSTRUCTION - Patient stated this medication has increased to 40 mg daily. Patient aware RX will be sent to pharmacy. No need to notify patient. Denita Williamsoning Psr 06/20/2018 11:02 AM Addendum Patient stated that this atorvastatin medication was increased to 40 mg while he was in the [facility] by Dr. Alford. Please re-submit to [facility] in [place] today because he only 1 pill left. Please call the patient once this is completed at: [phone]. Allergies As of Date: 06/17/2018 (No Known Allergies) Date Reviewed: 06/17/2018 Reviewed by: Dwayne (Rn) Patrice - Fully Assessed Reason for Visit: Refill Request [94] Order(s):atorvastatin (LIPITOR) 10 mg tabletPatient taking 40 mg dailyDisp: 30 tabletRfl: 11 Prescriptions as of 06/17/2018 Sig: ATORVASTATIN 10 MG TABLET Patient taking 40 mg daily METFORMIN ER 500 MG TABLET,EX* TAKE 2 TABLETS BY MOUTH TWICE* PEN NEEDLE, DIABETIC 31 GAUGE* 1 Each once daily. PEN NEEDLE, DIABETIC 31 GAUGE* 1 Each four times daily. INSULIN GLARGINE (U-100) 100 * Inject 22 Units subcutaneousl* INSULIN ASPART U-100 100 UNI* Inject with meals according t* LOSARTAN 50 MG TABLET Take 1 tablet by mouth once d* BLOOD SUGAR DIAGNOSTIC STRIPS Test blood sugar(s) 5 times d* WARFARIN 5 MG TABLET TAKE 5mg on Sundays, 10 mg on* DULAGLUTIDE 1.5 MG/0.5 ML SUB* Inject 1.5 mg subcutaneously * METOPROLOL SUCCINATE ER 200 M* TAKE 1 TABLET BY MOUTH ONCE D* WARFARIN 5 MG TABLET TAKE 1 TAB BY MOUTH ON SATURDAY* ASPIRIN 81 MG TABLET,DELAYED * Take 1 tablet by mouth once d* INSULIN SYRINGE U-100 WITH NE* Use 1 syringe for insulin inj* Problem List As Of Date 06/17/2018 Noted Resolved Sciatica [M54.30] INVALID FOR*06/20/2016 Diabetes mellitus with neurological manifestati*INVALID FOR* Abscess [L02.91] INVALID FOR*06/20/2016 Non-healing surgical wound [T81.89XA] INVALID FOR*06/20/2016 Cellulitis and abscess [L03.90, L02.91] INVALID FOR*06/20/2016 Skin lesion [L98.9] INVALID FOR*06/20/2016 Hyperlipidemia with target LDL less than 100 [E*INVALID FOR* Essential hypertension, benign [I10] INVALID FOR* Morbid obesity with BMI of 40.0-44.9, adult (HC*INVALID FOR*08/19/2017 Encounter for monitoring coumadin therapy [Z51.*INVALID FOR* More... Pulmonary embolus, right (HCC) [I26.99] INVALID FOR*08/19/2017 Callus of foot [L84] INVALID FOR* Tinea of nail [B35.1] INVALID FOR* Cholelithiasis [K80.20] INVALID FOR* S/P aortic valve replacement [Z95.2] INVALID FOR*06/20/2016 Status post aortic valve repair [Z98.890] INVALID FOR* Type 2 diabetes mellitus with stage 3 chronic k*INVALID FOR* Obesity, Class II, BMI 35-39.9 [E66.9] INVALID FOR* Chronic anticoagulation [Z79.01] INVALID FOR* Prescriptions ordered this encounter Disp Refills Start End ATORVASTATIN 10 MG TABLET 30 t* 11 06/17/2018 Sig: Patient taking 40 mg daily Medications Discontinued During This Encounter atorvastatin (LIPITOR) 10 mg tablet 30 t* 11 12/30/2017 06/17/2018 Sig: TAKE 1 TABLET BY MOUTH DAILY AT BEDTIME. FOR CHOLESTEROL. Patient taking differently: Patient taking 40 mg daily Disc: Reason for discontinue is not on file. Encounter Status:Closed by DMITRY ROBERTO III, MD on 06/17/18 ERYTHROCYTE SED RATE Collected: 06/16/2018 Status: F Source: [place] 10:00 AM [facility] REPOSITORY TYPE CODE TESTS RESULT OUT OF RANGE REFERENCE UNITS LAB L102.0000 0-20 mm/hr High SED RATE 23 Performed By: #### L101.9900, L100.0500 #### [facility] [address] [place], [address] CBC-COMPLETE BLOOD CNT Collected: 06/16/2018 Status: F Source: [place] NO DIFF 10:00 AM [facility] REPOSITORY TYPE CODE TESTS RESULT OUT OF RANGE REFERENCE UNITS LAB L100.1000 4.4-11.0 K/mm3 Normal WBC 8.1 LAB L100.1200 4.6-6.2 M/mm3 Low RBC 3.90 LAB L100.1300 13.0-16.5 g/dl Low HGB 10.5 LAB L100.1400 40-54 % Low HCT 33.6 LAB L100.1500 80-94 fL Normal MCV 86.2 LAB L100.1600 27.0-32.0 pg Low MCH 26.9 LAB L100.1700 32-36 g/gl Low MCHC 31.3 LAB L100.1810 11.6-14.6 % High RDW CV 14.7 LAB L100.1820 35.1-43.9 fl High RDW SD 44.6 LAB L100.1900 150-450 K/mm3 Normal PLT 231 LAB L100.2000 6.2-12.0 fl Normal MPV 10.0 Performed By: #### L101.9900, L100.0500 #### [facility] [address] [place], [address] BASIC METABOLIC Collected: 06/16/2018 Status: F Source: [place] PROFILE (BMP) 10:00 AM [facility] REPOSITORY TYPE CODE TESTS RESULT OUT OF RANGE REFERENCE UNITS LAB L501.0100 74-106 mg/dL High GLU 207 Result Comment: Glucose result greater than or equal to 200 mg/dL suggests DIABETES MELLITUS per A.D.A. criteria. Please note revised GLUCOSE reference range effective 2017. LAB L501.1000 7-18 mg/dL Normal BUN 18 LAB L501.1100 0.70-1.30 mg/dL Normal CREAT,SERUM 1.21 Result Comment: The validity of the calculated GFR AND GFRAA in patients over 70 years has not been determined. Clinical correlation is essential. LAB L501.1110 >60 mL/min Normal EST GFR 63 Result Comment: Non- GFR Calc LAB L501.1115 >60 mL/min Normal EST GFR - AA 76 Result Comment: GFR Calc LAB L501.1300 10-20 RATIO Normal BUN/CRE 14.9 LAB L501.2200 8.5-10.1 mg/dL Low CA 8.4 LAB L501.5300 136-145 mmol/L NA Normal 142 LAB L501.5600 3.5-5.1 mmol/L K Normal 3.9 LAB L501.5900 98-107 mmol/L CL Normal 104 LAB L501.6100 21.0-32.0 mmol/L Normal CO2 29.0 LAB L501.6200 5-15 Normal GAP 9 Performed By: #### L500.2500 #### [facility] [address] [place], [address] PROGRESS Observed: 06/10/2018 Status: COMPLETED Source: [place] 3:32 PM [facility] [place] REPOSITORY HNO ID: [id number] Author: Arminda Obregon Service: (none) Author Type: Physician Type: Progress Notes Filed: 06/10/2018 3:38 PM Note Text: This 72 year old presents post op right 1st ray amputation. He is 14 days post-op delayed closure. He denies any pain. He denies any drainage. He denies any n/v/f/c. He is still on iv antibiotics and is tolerating this nicely. He has no other complaints. Objective: Incision site is well coapted with suture. There is moderate hyperkeratosis along central incision. This callus was debrided. There appears to be mild fissuring of central incision. proximal and distal incision appears to be healing nicely. There is no erythema. There is no drainage. There is no signs of infection present to right foot. Drain site appears healed. Patient has no pain to palpation of right calf. Negative Badillo's test. Assessment: (Z98.890) Post-operative state (primary encounter diagnosis) Plan: Patient was examined and informed of current findings Today, I debrided all nonviable callus to incision with forceps. Following debridement, the foot was examined. The distal and proximal incision is healing nicely. Given his diabetes and prone to slow healing, I am going to keep this suture for an additional week. After debridement of callus, there was area of slower healing. I discussed this area with patient. I discussed use of silvercel vs steres vs applying suture to this area to expedite healing. After long discussion, patient elected to pursue suturing. Today, the right foot was prepped with betadine. 2.5 cc of lidocaine was injected to right foot. Placement of 3 simple interrupted suture was placed to right foot under sterile technique. I will have patient continue with surgical shoe. I will have patient apply betadine as needed to right foot with sterile dressing. Drain site appears healed. Patient will f/u in 1 week Arminda Obregon DPM PROGRESS Observed: 06/10/2018 Status: COMPLETED Source: [place] 12:58 PM [facility] REPOSITORY HNO ID: [id number] Author: Blaire De La Torre RN Service: (none) Author Type: (none) Type: Progress Notes Filed: 06/10/2018 3:38 PM Note Text: AMB ROOMING INTAKE FLOWSHEET DATA Risk Screening Do you have concerns about personal safety or safety in the home?: No Patient here s/p R 1st ray amputation and delayed closure. He denies any pain, n/v/f/c. CNOV Observed: 06/10/2018 Status: COMPLETED Source: [place] 12:55 PM [facility] REPOSITORY Office Visit (PODIWS) RICHARD ROY ([id number]) 1945 M Date Time Provider Department 06/10/18 12:55 PM ARMINDA OBREGON PODIWS During your visit today, we recorded the following information about you: Blaire De La Torre RN 06/10/2018 3:38 PM Signed AMB ROOMING INTAKE FLOWSHEET DATA Risk Screening Do you have concerns about personal safety or safety in the home?: No Patient here s/p R 1st ray amputation and delayed closure. He denies any pain, n/v/f/c. Blaire De La Torre RN 06/10/2018 1:59 PM Signed Apply betadine as needed to sutures. Arminda Obregon DPM 06/10/2018 3:38 PM Signed This 72 year old presents post op right 1st ray amputation. He is 14 days post-op delayed closure. He denies any pain. He denies any drainage. He denies any n/v/f/c. He is still on iv antibiotics and is tolerating this nicely. He has no other complaints. Objective: Incision site is well coapted with suture. There is moderate hyperkeratosis along central incision. This callus was debrided. There appears to be mild fissuring of central incision. proximal and distal incision appears to be healing nicely. There is no erythema. There is no drainage. There is no signs of infection present to right foot. Drain site appears healed. Patient has no pain to palpation of right calf. Negative Badillo's test. Assessment: (Z98.890) Post-operative state (primary encounter diagnosis) Plan: Patient was examined and informed of current findings Today, I debrided all nonviable callus to incision with forceps. Following debridement, the foot was examined. The distal and proximal incision is healing nicely. Given his diabetes and prone to slow healing, I am going to keep this suture for an additional week. After debridement of callus, there was area of slower healing. I discussed this area with patient. I discussed use of silvercel vs steres vs applying suture to this area to expedite healing. After long discussion, patient elected to pursue suturing. Today, the right foot was prepped with betadine. 2.5 cc of lidocaine was injected to right foot. Placement of 3 simple interrupted suture was placed to right foot under sterile technique. I will have patient continue with surgical shoe. I will have patient apply betadine as needed to right foot with sterile dressing. Drain site appears healed. Patient will f/u in 1 week Arminda Obregon DPM Referring Provider: ARMINDA OBREGON [[id number]] Allergies As of Date: 06/10/2018 (No Known Allergies) Date Reviewed: 06/10/2018 Reviewed by: Blaire De La Torre RN - Fully Assessed Reason for Visit: Follow Up [171] Primary Visit Diagnosis:Post-operative state [Z98.890] Prescriptions as of 06/10/2018 Sig: WARFARIN 5 MG TABLET TAKE 5mg on Sundays, 10 mg on* DULAGLUTIDE 1.5 MG/0.5 ML SUB* Inject 1.5 mg subcutaneously * METOPROLOL SUCCINATE ER 200 M* TAKE 1 TABLET BY MOUTH ONCE D* WARFARIN 5 MG TABLET TAKE 1 TAB BY MOUTH ON SATURDAY* ASPIRIN 81 MG TABLET,DELAYED * Take 1 tablet by mouth once d* INSULIN SYRINGE U-100 WITH NE* Use 1 syringe for insulin inj* METFORMIN ER 500 MG TABLET,EX* TAKE 2 TABLETS BY MOUTH TWICE* PEN NEEDLE, DIABETIC 31 GAUGE* 1 Each once daily. PEN NEEDLE, DIABETIC 31 GAUGE* 1 Each four times daily. INSULIN GLARGINE (U-100) 100 * Inject 22 Units subcutaneousl* INSULIN ASPART U-100 100 UNI* Inject with meals according t* ATORVASTATIN 10 MG TABLET TAKE 1 TABLET BY MOUTH DAILY * Patient taking differently: Patient taking 40 mg daily LOSARTAN 50 MG TABLET Take 1 tablet by mouth once d* BLOOD SUGAR DIAGNOSTIC STRIPS Test blood sugar(s) 5 times d* Problem List As Of Date 06/10/2018 Noted Resolved Sciatica [M54.30] INVALID FOR*06/20/2016 Diabetes mellitus with neurological manifestati*INVALID FOR* Abscess [L02.91] INVALID FOR*06/20/2016 Non-healing surgical wound [T81.89XA] INVALID FOR*06/20/2016 Cellulitis and abscess [L03.90, L02.91] INVALID FOR*06/20/2016 Skin lesion [L98.9] INVALID FOR*06/20/2016 Hyperlipidemia with target LDL less than 100 [E*INVALID FOR* Essential hypertension, benign [I10] INVALID FOR* Morbid obesity with BMI of 40.0-44.9, adult (HC*INVALID FOR*08/19/2017 Encounter for monitoring coumadin therapy [Z51.*INVALID FOR* More... Pulmonary embolus, right (HCC) [I26.99] INVALID FOR*08/19/2017 Callus of foot [L84] INVALID FOR* Tinea of nail [B35.1] INVALID FOR* Cholelithiasis [K80.20] INVALID FOR* S/P aortic valve replacement [Z95.2] INVALID FOR*06/20/2016 Status post aortic valve repair [Z98.890] INVALID FOR* Type 2 diabetes mellitus with stage 3 chronic k*INVALID FOR* Obesity, Class II, BMI 35-39.9 [E66.9] INVALID FOR* Chronic anticoagulation [Z79.01] INVALID FOR* Other instructions from your clinician: Apply betadine as needed to sutures. Disposition: Return in about 1 week (around 06/17/2018) for post op. Follow-up and Disposition History Recorded Encounter Status:Closed by ARMINDA OBREGON DPM on 06/10/18 CBC-COMPLETE BLOOD CNT Collected: 06/09/2018 Status: F Source: [place] NO DIFF 11:30 AM [facility] REPOSITORY TYPE CODE TESTS RESULT OUT OF RANGE REFERENCE UNITS LAB L100.1000 4.4-11.0 K/mm3 Normal WBC 8.3 LAB L100.1200 4.6-6.2 M/mm3 Low RBC 3.75 LAB L100.1300 13.0-16.5 g/dl Low HGB 10.1 LAB L100.1400 40-54 % Low HCT 32.3 LAB L100.1500 80-94 fL Normal MCV 86.1 LAB L100.1600 27.0-32.0 pg Low MCH 26.9 LAB L100.1700 32-36 g/gl Low MCHC 31.3 LAB L100.1810 11.6-14.6 % Normal RDW CV 14.6 LAB L100.1820 35.1-43.9 fl High RDW SD 44.0 LAB L100.1900 150-450 K/mm3 Normal PLT 234 LAB L100.2000 6.2-12.0 fl Normal MPV 10.1 Performed By: #### L100.0500, L101.9900 #### [facility] [address] [place], [address] ERYTHROCYTE SED RATE Collected: 06/09/2018 Status: F Source: [place] 11:30 AM [facility] REPOSITORY TYPE CODE TESTS RESULT OUT OF RANGE REFERENCE UNITS LAB L102.0000 0-20 mm/hr High SED RATE 25 Performed By: #### L100.0500, L101.9900 #### [facility] [address] [place], [address] BASIC METABOLIC Collected: 06/09/2018 Status: F Source: [place] PROFILE (BMP) 11:30 AM [facility] REPOSITORY TYPE CODE TESTS RESULT OUT OF RANGE REFERENCE UNITS LAB L501.0100 74-106 mg/dL High GLU 173 Result Comment: Fasting Glucose result greater than or equal to 126 mg/dL suggests DIABETES MELLITUS per A.D.A. criteria. Please note revised GLUCOSE reference range effective 2017. LAB L501.1000 7-18 mg/dL High BUN 19 LAB L501.1100 0.70-1.30 mg/dL Normal CREAT,SERUM 1.12 Result Comment: The validity of the calculated GFR AND GFRAA in patients over 70 years has not been determined. Clinical correlation is essential. LAB L501.1110 >60 mL/min Normal EST GFR 69 Result Comment: Non- GFR Calc LAB L501.1115 >60 mL/min Normal EST GFR - AA 83 Result Comment: GFR Calc LAB L501.1300 10-20 RATIO Normal BUN/CRE 17.0 LAB L501.2200 8.5-10.1 mg/dL CA Normal 8.7 LAB L501.5300 136-145 mmol/L NA Normal 141 LAB L501.5600 3.5-5.1 mmol/L K Normal 4.0 LAB L501.5900 98-107 mmol/L CL Normal 103 LAB L501.6100 21.0-32.0 mmol/L Normal CO2 26.0 LAB L501.6200 5-15 Normal GAP 12 Performed By: #### L500.2500 #### [facility] [place], [address] PROGRESS Observed: 06/05/2018 Status: COMPLETED Source: [place] 8:42 PM [facility] REPOSITORY HNO ID: [id number] Author: Arminda Obregon Service: (none) Author Type: Physician Type: Progress Notes Filed: 06/05/2018 8:53 PM Note Text: This 72 year old presents post op right 1st ray amputation. Pain level: 0/10 Vomiting, fever, chills, shortness of breath: no Pain Control: n/a Weightbearing status: Partial weightbearing Objective: Incision site is well coapted with no evidence of dehiscence. No drainage is noted. No signs of infection noted. Incision appears to be healing without signs of dehiscence. Drain is intact. no lymphadenopathy. No lymphangitis. No surrounding cellulitis. Patient has no pain to palpation of right calf. Negative Badillo's test. Assessment: (Z98.890) Post-operative state (primary encounter diagnosis) Plan: Patient was examined and informed of current findings Patient is s/p partial first ray amputation. Incision appears to be healing without dehiscence. Will leave drain in for one more day. Plan for possible removal tomorrow. Patient to continue with surgical shoe Arminda Obregon DPM PROGRESS Observed: 06/05/2018 Status: COMPLETED Source: [place] 7:23 AM [facility] REPOSITORY HNO ID: [id number] Author: Arminda Obregon Service: (none) Author Type: Physician Type: Progress Notes Filed: 06/05/2018 7:26 AM Note Text: Follow up podiatric office visit for: Chief Complaint: This 72 year old who presents for follow up:right 1st ray amputation. He is here to have drain pulled. He states there is no further collection in drain tube. PAIN EVALUATION No data found. 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 ([facility]) 05/25/2018 - Hyperlipidemia LDL goal < 100 04/01/2012 - Pulmonary embolus, right ([facility]) 09/25/2013 - Status post aortic valve repair 2004 - Thoracic aneurysm without mention of rupture - Type 2 diabetes mellitus with stage 3 chronic kidney disease, with long-term current use of insulin (FORMERLY [facility]) 06/20/2016 - Type II or unspecified type diabetes mellitus without mention of complication, not stated as uncontrolled Current Outpatient Prescriptions: metFORMIN ER (GLUCOPHAGE XR) 500 mg 24 hr tablet TAKE 2 TABLETS BY MOUTH TWICE DAILY WITH MEALS. insulin needles, DISPOSABLE, (BD INSULIN PEN NEEDLE UF) 31 gauge x 5/16 ndle 1 Each once daily. insulin needles, DISPOSABLE, (BD INSULIN PEN NEEDLE UF) 31 gauge x 5/16 ndle 1 Each four times daily. insulin glargine (LANTUS SOLOSTAR U-100 INSULIN) 100 unit/mL (3 mL) inpn Inject 22 Units subcutaneously daily at bedtime. insulin aspart U-100 (NOVOLOG FLEXPEN U-100 INSULIN) 100 unit/mL inpn Inject with meals according to sliding scale: 100-200=3 units, 201-250=5 units, 251-300=8 units, 301-350=12 units, 351-400=15 units. atorvastatin (LIPITOR) 10 mg tablet TAKE 1 TABLET BY MOUTH DAILY AT BEDTIME. FOR CHOLESTEROL. (Patient taking differently: Patient taking 40 mg daily) losartan (COZAAR) 50 mg tablet Take 1 tablet by mouth once daily. blood sugar diagnostic ([employer] ULTRA TEST) test strip Test blood sugar(s) 5 times daily. Dx: E11.49. Insulin: Yes warfarin (COUMADIN) 5 mg tablet TAKE 5mg on Sundays, 10 mg on ALL OTHER DAYS dulaglutide (TRULICITY) 1.5 mg/0.5 mL pnij Inject 1.5 mg subcutaneously once each week. Inject once per week. Discard Pen After metoprolol succinate ER (TOPROL XL) 200 mg 24 hr tablet TAKE 1 TABLET BY MOUTH ONCE DAILY. warfarin (COUMADIN) 5 mg tablet TAKE 1 TAB BY MOUTH ON SUNDAYS AND THURSDAYS, THEN TAKE 2 TABS BY MOUTH ONCE DAILY ON ALL OTHER DAYS aspirin, enteric coated (ASPIRIN LOW DOSE) 81 mg EC tablet Take 1 tablet by mouth once daily. Insulin Syringe-Needle U-100 (BD INSULIN SYRINGE UF II) 0.5 mL 31 gauge x 5/16 syrg Use 1 syringe for insulin injections five (5) times daily as directed. DX: 250.60 Insulin: Yes No current facility-administered medications for this visit. ALLERGIES No Known Allergies PAST SURGICAL HISTORY Procedure Laterality Date - AMPUTATION METATARSAL+TOE,SINGLE Right 05/25/2018 with delayed closure on 05/28/18. Dr. Obregon at [facility] - [facility] W/ OR W/O [facility] SPEC 03/12/11 - DEBRIDE SKIN AND SUBQ TISSU 09-11-10 LEFT GROIN - DEBRIDEMENT OF SKIN, FULL THIC 09-12-10 LEFT GROIN - I AND D ABSCESS, SINGLE 09/08/10 IANDD abscess left groin - I AND D ABSCESS, SINGLE 10/23/10 IANDD medial to left groin wound - I AND D ABSCESS, SINGLE 01/22/11 IANDD LLQ superficial abscess - REM LESION TRUNK,ARM, LEG <0.5 CM 03/21/11 Exc. fibroepithelial polyp LLQ abd - REMOVAL DEVITAL TISSUE, ARTUR WND CHAPITO <20CM 11/22/10 Debridement posterior neck/IANDD LLQ abd - REVISION OF AORTIC VALVE 2004 Repair of Aortic Value/Thoracic anerusym repair Physical Exam: Constitutional: Pt is a well developed 72 year old male who is alert, oriented, cooperative and in no apparent distress. OBJECTIVE: NVSI unchanged from previous visit. Dermatological: Surgical incision to right foot is healing nicely with no drainage, no maceration, no dehiscence. Drain intact and has less than 1 cc of fluid. No signs of infection to right foot. Musculoskeletal/Orthopaedic: Patient has no pain to palpation of right foot ASSESSMENT: (Z98.890) Post-operative state (primary encounter diagnosis) PLAN: Patient exam and found to have very minimal collection of blood or drainage in drain since placed yesterday. He is 7 days s/p closure of surgical wound and incision appears dry and healing nicely without signs of infection. Drain pulled today and no drainage noted. Drain completely removed. Discussed suturing drain site vs placing steres. Patient elected steres. Patient will continue with steres daily along drain site. Continue with surgical shoe. Continue with local care to right foot until healed F/u in 1 week Continue with antibiotics per id Arminda Obregon DPM PROGRESS Observed: 06/04/2018 Status: COMPLETED Source: [place] 4:21 PM [facility] REPOSITORY HNO ID: [id number] Author: Karly Ruiz Ma Service: (none) Author Type: (none) Type: Progress Notes Filed: 06/05/2018 7:26 AM Note Text: AMB ROOMING INTAKE FLOWSHEET DATA Risk Screening Do you have concerns about personal safety or safety in the home?: No Patient here to have drain pulled today. CNOV Observed: 06/04/2018 Status: COMPLETED Source: [place] 4:00 PM [facility] REPOSITORY Office Visit (PODIWS) RICHARD ROY ([id number]) 1945 M Date Time Provider Department 06/04/18 4:00 PM ARMINDA OBREGON PODALEA During your visit today, we recorded the following information about you: Karly Ruiz Ma 06/05/2018 7:26 AM Signed AMB ROOMING INTAKE FLOWSHEET DATA Risk Screening Do you have concerns about personal safety or safety in the home?: No Patient here to have drain pulled today. Blaire De La Torre RN 06/04/2018 4:43 PM Signed Leave Steri Strip in place. If it falls off and site is not completely healed re-apply. Apply betadine if you notice site is getting macerated. Arminda Obregon DPM 06/05/2018 7:26 AM Signed Follow up podiatric office visit for: Chief Complaint: This 72 year old who presents for follow up:right 1st ray amputation. He is here to have drain pulled. He states there is no further collection in drain tube. PAIN EVALUATION No data found. 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 ([facility]) 05/25/2018 - Hyperlipidemia LDL goal < 100 04/01/2012 - Pulmonary embolus, right ([facility]) 09/25/2013 - Status post aortic valve repair 2004 - Thoracic aneurysm without mention of rupture - Type 2 diabetes mellitus with stage 3 chronic kidney disease, with long-term current use of insulin ([facility]) 06/20/2016 - Type II or unspecified type diabetes mellitus without mention of complication, not stated as uncontrolled Current Outpatient Prescriptions: metFORMIN ER (GLUCOPHAGE XR) 500 mg 24 hr tablet TAKE 2 TABLETS BY MOUTH TWICE DAILY WITH MEALS. insulin needles, DISPOSABLE, (BD INSULIN PEN NEEDLE UF) 31 gauge x 5/16 ndle 1 Each once daily. insulin needles, DISPOSABLE, (BD INSULIN PEN NEEDLE UF) 31 gauge x 5/16 ndle 1 Each four times daily. insulin glargine (LANTUS SOLOSTAR U-100 INSULIN) 100 unit/mL (3 mL) inpn Inject 22 Units subcutaneously daily at bedtime. insulin aspart U-100 (NOVOLOG FLEXPEN U-100 INSULIN) 100 unit/mL inpn Inject with meals according to sliding scale: 100-200=3 units, 201- 250=5 units, 251-300=8 units, 301-350=12 units, 351-400=15 units. atorvastatin (LIPITOR) 10 mg tablet TAKE 1 TABLET BY MOUTH DAILY AT BEDTIME. FOR CHOLESTEROL. (Patient taking differently: Patient taking 40 mg daily) losartan (COZAAR) 50 mg tablet Take 1 tablet by mouth once daily. blood sugar diagnostic ([employer] ULTRA TEST) test strip Test blood sugar(s) 5 times daily. Dx: E11.49. Insulin: Yes warfarin (COUMADIN) 5 mg tablet TAKE 5mg on Sundays, 10 mg on ALL OTHER DAYS dulaglutide (TRULICITY) 1.5 mg/0.5 mL pnij Inject 1.5 mg subcutaneously once each week. Inject once per week. Discard Pen After metoprolol succinate ER (TOPROL XL) 200 mg 24 hr tablet TAKE 1 TABLET BY MOUTH ONCE DAILY. warfarin (COUMADIN) 5 mg tablet TAKE 1 TAB BY MOUTH ON SUNDAYS AND THURSDAYS, THEN TAKE 2 TABS BY MOUTH ONCE DAILY ON ALL OTHER DAYS aspirin, enteric coated (ASPIRIN LOW DOSE) 81 mg EC tablet Take 1 tablet by mouth once daily. Insulin Syringe-Needle U-100 (BD INSULIN SYRINGE UF II) 0.5 mL 31 gauge x 5/16 syrg Use 1 syringe for insulin injections five (5) times daily as directed. DX: 250.60 Insulin: Yes No current facility-administered medications for this visit. ALLERGIES No Known Allergies PAST SURGICAL HISTORY Procedure Laterality Date - AMPUTATION METATARSAL+TOE,SINGLE Right 05/25/2018 with delayed closure on 05/28/18. Dr. Obregon at [facility] - [facility] W/ OR W/O [facility] SPEC 03/12/11 - DEBRIDE SKIN AND SUBQ TISSU 09-11-10 LEFT GROIN - DEBRIDEMENT OF SKIN, FULL THIC 09-12-10 LEFT GROIN - I AND D ABSCESS, SINGLE 09/08/10 IANDD abscess left groin - I AND D ABSCESS, SINGLE 10/23/10 IANDD medial to left groin wound - I AND D ABSCESS, SINGLE 01/22/11 IANDD LLQ superficial abscess - REM LESION TRUNK,ARM, LEG <0.5 CM 03/21/11 Exc. fibroepithelial polyp LLQ abd - REMOVAL DEVITAL TISSUE, ARTUR WND CHAPITO <20CM 11/22/10 Debridement posterior neck/IANDD LLQ abd - REVISION OF AORTIC VALVE 2004 Repair of Aortic Value/Thoracic anerusym repair Physical Exam: Constitutional: Pt is a well developed 72 year old male who is alert, oriented, cooperative and in no apparent distress. OBJECTIVE: NVSI unchanged from previous visit. Dermatological: Surgical incision to right foot is healing nicely with no drainage, no maceration, no dehiscence. Drain intact and has less than 1 cc of fluid. No signs of infection to right foot. Musculoskeletal/Orthopaedic: Patient has no pain to palpation of right foot ASSESSMENT: (Z98.890) Post-operative state (primary encounter diagnosis) PLAN: Patient exam and found to have very minimal collection of blood or drainage in drain since placed yesterday. He is 7 days s/p closure of surgical wound and incision appears dry and healing nicely without signs of infection. Drain pulled today and no drainage noted. Drain completely removed. Discussed suturing drain site vs placing steres. Patient elected steres. Patient will continue with steres daily along drain site. Continue with surgical shoe. Continue with local care to right foot until healed F/u in 1 week Continue with antibiotics per id Arminda Obregon DPM Referring Provider: ARMINDA OBREGON [[id number]] Allergies As of Date: 06/04/2018 (No Known Allergies) Date Reviewed: 06/04/2018 Reviewed by: Karly Ruiz Ma - Fully Assessed Reason for Visit: Established Patient [175] Cmt: pull drain Primary Visit Diagnosis:Post-operative state [Z98.890] Prescriptions as of 06/04/2018 Sig: METFORMIN ER 500 MG TABLET,EX* TAKE 2 TABLETS BY MOUTH TWICE* PEN NEEDLE, DIABETIC 31 GAUGE* 1 Each once daily. PEN NEEDLE, DIABETIC 31 GAUGE* 1 Each four times daily. INSULIN GLARGINE (U-100) 100 * Inject 22 Units subcutaneousl* INSULIN ASPART U-100 100 UNI* Inject with meals according t* ATORVASTATIN 10 MG TABLET TAKE 1 TABLET BY MOUTH DAILY * Patient taking differently: Patient taking 40 mg daily LOSARTAN 50 MG TABLET Take 1 tablet by mouth once d* BLOOD SUGAR DIAGNOSTIC STRIPS Test blood sugar(s) 5 times d* WARFARIN 5 MG TABLET TAKE 5mg on Sundays, 10 mg on* DULAGLUTIDE 1.5 MG/0.5 ML SUB* Inject 1.5 mg subcutaneously * METOPROLOL SUCCINATE ER 200 M* TAKE 1 TABLET BY MOUTH ONCE D* WARFARIN 5 MG TABLET TAKE 1 TAB BY MOUTH ON SATURDAY* ASPIRIN 81 MG TABLET,DELAYED * Take 1 tablet by mouth once d* INSULIN SYRINGE U-100 WITH NE* Use 1 syringe for insulin inj* Problem List As Of Date 06/04/2018 Noted Resolved Sciatica [M54.30] INVALID FOR*06/20/2016 Diabetes mellitus with neurological manifestati*INVALID FOR* Abscess [L02.91] INVALID FOR*06/20/2016 Non-healing surgical wound [T81.89XA] INVALID FOR*06/20/2016 Cellulitis and abscess [L03.90, L02.91] INVALID FOR*06/20/2016 Skin lesion [L98.9] INVALID FOR*06/20/2016 Hyperlipidemia with target LDL less than 100 [E*INVALID FOR* Essential hypertension, benign [I10] INVALID FOR* Morbid obesity with BMI of 40.0-44.9, adult (HC*INVALID FOR*08/19/2017 Encounter for monitoring coumadin therapy [Z51.*INVALID FOR* More... Pulmonary embolus, right (HCC) [I26.99] INVALID FOR*08/19/2017 Callus of foot [L84] INVALID FOR* Tinea of nail [B35.1] INVALID FOR* Cholelithiasis [K80.20] INVALID FOR* S/P aortic valve replacement [Z95.2] INVALID FOR*06/20/2016 Status post aortic valve repair [Z98.890] INVALID FOR* Type 2 diabetes mellitus with stage 3 chronic k*INVALID FOR* Obesity, Class II, BMI 35-39.9 [E66.9] INVALID FOR* Chronic anticoagulation [Z79.01] INVALID FOR* Other instructions from your clinician: Leave Steri Strip in place. If it falls off and site is not completely healed re-apply. Apply betadine if you notice site is getting macerated. Encounter Status:Closed by ARMINDA OBREGON DPM on 06/05/18 PROGRESS Observed: 06/04/2018 Status: COMPLETED Source: [place] 2:35 PM [facility] REPOSITORY HNO ID: [id number] Author: Blaire De La Torre RN Service: (none) Author Type: (none) Type: Progress Notes Filed: 06/05/2018 8:53 PM Note Text: Betadine and 4x4 applied to R foot. Covered with yu and BERNIE. SARIAHOV Observed: 06/03/2018 Status: COMPLETED Source: [place] 3:00 PM [facility] REPOSITORY Office Visit (PODIWS) RICHARD ROY ([id number]) 1945 M Date Time Provider Department 06/03/18 3:00 PM ARMINDA OBREGON During your visit today, we recorded the following information about you: Blaire De La Torre RN 06/03/2018 3:21 PM Signed Continue betadine daily. Wrap with 4x4 and yu. Blaire De La Torre RN 06/05/2018 8:53 PM Signed Betadine and 4x4 applied to R foot. Covered with yu and BERNIE. Arminda Obregon DPM 06/05/2018 8:53 PM Signed This 72 year old presents post op right 1st ray amputation. Pain level: 0/10 Vomiting, fever, chills, shortness of breath: no Pain Control: n/a Weightbearing status: Partial weightbearing Objective: Incision site is well coapted with no evidence of dehiscence. No drainage is noted. No signs of infection noted. Incision appears to be healing without signs of dehiscence. Drain is intact. no lymphadenopathy. No lymphangitis. No surrounding cellulitis. Patient has no pain to palpation of right calf. Negative Badillo's test. Assessment: (Z98.890) Post-operative state (primary encounter diagnosis) Plan: Patient was examined and informed of current findings Patient is s/p partial first ray amputation. Incision appears to be healing without dehiscence. Will leave drain in for one more day. Plan for possible removal tomorrow. Patient to continue with surgical shoe Arminda Obregon DPM Referring Provider: ARMINDA OBREGON [[id number]] Allergies As of Date: 06/03/2018 (No Known Allergies) Date Reviewed: 06/03/2018 Reviewed by: Nadeen Vaughn LPN - Fully Assessed Reason for Visit: Surgical Followup [104] Cmt: 9 day post op Primary Visit Diagnosis:Post-operative state [Z98.890] Prescriptions as of 06/03/2018 Sig: METFORMIN ER 500 MG TABLET,EX* TAKE 2 TABLETS BY MOUTH TWICE* PEN NEEDLE, DIABETIC 31 GAUGE* 1 Each once daily. PEN NEEDLE, DIABETIC 31 GAUGE* 1 Each four times daily. INSULIN GLARGINE (U-100) 100 * Inject 22 Units subcutaneousl* INSULIN ASPART U-100 100 UNI* Inject with meals according t* ATORVASTATIN 10 MG TABLET TAKE 1 TABLET BY MOUTH DAILY * Patient taking differently: Patient taking 40 mg daily LOSARTAN 50 MG TABLET Take 1 tablet by mouth once d* BLOOD SUGAR DIAGNOSTIC STRIPS Test blood sugar(s) 5 times d* WARFARIN 5 MG TABLET TAKE 5mg on Sundays, 10 mg on* DULAGLUTIDE 1.5 MG/0.5 ML SUB* Inject 1.5 mg subcutaneously * METOPROLOL SUCCINATE ER 200 M* TAKE 1 TABLET BY MOUTH ONCE D* WARFARIN 5 MG TABLET TAKE 1 TAB BY MOUTH ON SATURDAY* ASPIRIN 81 MG TABLET,DELAYED * Take 1 tablet by mouth once d* INSULIN SYRINGE U-100 WITH NE* Use 1 syringe for insulin inj* Problem List As Of Date 06/03/2018 Noted Resolved Sciatica [M54.30] INVALID FOR*06/20/2016 Diabetes mellitus with neurological manifestati*INVALID FOR* Abscess [L02.91] INVALID FOR*06/20/2016 Non-healing surgical wound [T81.89XA] INVALID FOR*06/20/2016 Cellulitis and abscess [L03.90, L02.91] INVALID FOR*06/20/2016 Skin lesion [L98.9] INVALID FOR*06/20/2016 Hyperlipidemia with target LDL less than 100 [E*INVALID FOR* Essential hypertension, benign [I10] INVALID FOR* Morbid obesity with BMI of 40.0-44.9, adult (HC*INVALID FOR*08/19/2017 Encounter for monitoring coumadin therapy [Z51.*INVALID FOR* More... Pulmonary embolus, right (HCC) [I26.99] INVALID FOR*08/19/2017 Callus of foot [L84] INVALID FOR* Tinea of nail [B35.1] INVALID FOR* Cholelithiasis [K80.20] INVALID FOR* S/P aortic valve replacement [Z95.2] INVALID FOR*06/20/2016 Status post aortic valve repair [Z98.890] INVALID FOR* Type 2 diabetes mellitus with stage 3 chronic k*INVALID FOR* Obesity, Class II, BMI 35-39.9 [E66.9] INVALID FOR* Chronic anticoagulation [Z79.01] INVALID FOR* Other instructions from your clinician: Continue betadine daily. Wrap with 4x4 and yu. Encounter Status:Closed by ARMINDA OBREGON DPM on 06/05/18 BASIC METABOLIC Collected: 06/02/2018 Status: F Source: [place] PROFILE (BMP) 11:45 AM [facility] REPOSITORY TYPE CODE TESTS RESULT OUT OF RANGE REFERENCE UNITS LAB L501.0100 74-106 mg/dL High GLU 185 Result Comment: Fasting Glucose result greater than or equal to 126 mg/dL suggests DIABETES MELLITUS per A.D.A. criteria. Please note revised GLUCOSE reference range effective 2017. LAB L501.1000 7-18 mg/dL Normal BUN 17 LAB L501.1100 0.70-1.30 mg/dL Normal CREAT,SERUM 1.07 Result Comment: The validity of the calculated GFR AND GFRAA in patients over 70 years has not been determined. Clinical correlation is essential. LAB L501.1110 >60 mL/min Normal EST GFR 73 Result Comment: Non- GFR Calc LAB L501.1115 >60 mL/min Normal EST GFR - AA 88 Result Comment: GFR Calc LAB L501.1300 10-20 RATIO Normal BUN/CRE 15.9 LAB L501.2200 8.5-10.1 mg/dL Low CA 8.4 LAB L501.5300 136-145 mmol/L NA Normal 139 LAB L501.5600 3.5-5.1 mmol/L K Normal 4.1 LAB L501.5900 98-107 mmol/L CL Normal 107 LAB L501.6100 21.0-32.0 mmol/L Normal CO2 28.0 LAB L501.6200 5-15 Low GAP 4 Performed By: #### L500.2500 #### [facility] [address] [place], [place], [address] CBC-COMPLETE BLOOD CNT Collected: 06/02/2018 Status: F Source: [place] NO DIFF 11:45 AM [facility] REPOSITORY TYPE CODE TESTS RESULT OUT OF RANGE REFERENCE UNITS LAB L100.1000 4.4-11.0 K/mm3 Normal WBC 9.5 LAB L100.1200 4.6-6.2 M/mm3 Low RBC 3.63 LAB L100.1300 13.0-16.5 g/dl Low HGB 9.6 LAB L100.1400 40-54 % Low HCT 31.3 LAB L100.1500 80-94 fL Normal MCV 86.2 LAB L100.1600 27.0-32.0 pg Low MCH 26.4 LAB L100.1700 32-36 g/gl Low MCHC 30.7 LAB L100.1810 11.6-14.6 % Normal RDW CV 14.4 LAB L100.1820 35.1-43.9 fl High RDW SD 45.0 LAB L100.1900 150-450 K/mm3 Normal PLT 274 LAB L100.2000 6.2-12.0 fl Normal MPV 9.5 Performed By: #### L100.0500, L101.9900 #### [facility] [address] [place], [address] ERYTHROCYTE SED RATE Collected: 06/02/2018 Status: F Source: [place] 11:45 AM [facility] REPOSITORY TYPE CODE TESTS RESULT OUT OF RANGE REFERENCE UNITS LAB L102.0000 0-20 mm/hr High SED RATE 37 Performed By: #### L100.0500, L101.9900 #### [facility] [address] [place], [address] PROGRESS Observed: 05/30/2018 Status: COMPLETED Source: [place] 10:09 PM [facility] REPOSITORY HNO ID: [id number] Author: Arminda Obregon Service: (none) Author Type: Physician Type: Progress Notes Filed: 05/30/2018 10:19 PM Note Text: This 72 year old presents post op right 1st ray amputation. Patient denies any pain to his right foot. Patient denies n/v/f/c. Patient has been tolerating antibiotics nicely. Patient has percutaneous tls drain and has about 7 cc of blood/fulid collection. Patient has no other complaints. Objective: Incision site is well coapted with no evidence of dehiscence. No erythema and edema surrounding surgical site noted. No drainage. No lymphadenopathy. No lymphangitis. No surrounding cellulitis. tls drainage with 7 cc of blood drainage. Patient has no pain to palpation of right calf. Negative Badillo's test. Assessment: (Z98.890) Post-operative state (primary encounter diagnosis) Plan: Patient was examined and informed of current findings He is s/p first ray amputation Pathology of post-lavage with no evidence of osteomyelitis. Cultures of pre-lavage mssa. Post-lavage with no growth. He is to continue with antibiotics I am going to keep drain in until no further drainage collected. Patient will perform dressing change daily to consist of betadine and silvercel. Will order post-op xrays. Patient is doing very well Patient will have f/u next week. Arminda Obregon DPM PROGRESS Observed: 05/30/2018 Status: COMPLETED Source: [place] 10:40 AM [facility] REPOSITORY HNO ID: [id number] Author: Azucena (Rt) Coty Inman Service: (none) Author Type: Piece Maker Type: Progress Notes Filed: 05/30/2018 10:40 AM Note Text: Radiology Service Progress Note PATIENT NAME: Richard Roy DATE OF SERVICE: May 30, 2018 TIME: 10:40 AM PATIENT IDENTITY VERIFICATION COMPLETED USING TWO (2) METHODS: Patient confirmed name verbally and Date of . PATIENT GENDER DATA: Male PATIENT RELEVANT IMPLANT DATA REVIEWED: Not Applicable RADIOLOGY DEPARTMENT: General X-ray: Exam(s) Completed: Lower Extremity X-Ray(s): Foot, Right and Wt. Bearing: PERIPHERAL IV DATA: Not applicable SIGNED BY: RT Ziggy May 30, 2018 10:40 AM XR FOOT 3V AP/LAT/OBL Observed: 05/30/2018 Status: F Source: [facility] 10:39 AM [facility] REPOSITORY * * *Final Report* * * DATE OF EXAM: May 30 2018 10:39AM WRX [id number] - XR FOOT 3V AP/LAT/OBL RT / PROCEDURE REASON: Post-operative state * * * * Physician Interpretation * * * * HISTORY: follow up to right foot 1st digit amputation. Post-operative state . TECHNIQUE: XR FOOT 3V AP/LAT/OBL RT Laterality: RIGHT Number of different views (projections): 3 COMPARISON: May 13 RESULT: Status post interval amputation through the mid shaft of the first metatarsal bone since the prior study with drain tube in place. Satisfactory appearance. IMPRESSION: Postsurgical changes, unremarkable. Pest Management Supervisor: BLAKE Transcribe Date/Time: May 31 2018 9:05P Dictated by : TEJA MAURER MD This examination was interpreted and the report reviewed and electronically signed by: TEJA MAURER MD on May 31 2018 9:06PM EST [id number] CNOV Observed: 05/30/2018 Status: COMPLETED Source: [place] 10:00 AM [facility] REPOSITORY Office Visit (PODIWS) RICHARD ROY ([id number]) 1945 M Date Time Provider Department 05/30/18 10:00 AM ARMINDA OBREGON PODIWS During your visit today, we recorded the following information about you: Libby Thibodeaux RN 05/30/2018 10:19 PM Signed AMB ROOMING INTAKE FLOWSHEET DATA Risk Screening Do you have concerns about personal safety or safety in the home?: No S/p delayed closure of right great toe on 05/25/18. Here for follow up visit. Wears the post-op shoe with ambulation AND is weight bearing. Denies pain . Libby De La Torre RN 05/30/2018 11:05 AM Addendum Apply betadine to sutures twice a day. Cover with 4x4s and secure with yu. Apply BERNIE to R foot and ankle. Leave drain in place. Continue post op shoe Arminda Obregon DPM 05/30/2018 10:19 PM Signed This 72 year old presents post op right 1st ray amputation. Patient denies any pain to his right foot. Patient denies n/v/f/c. Patient has been tolerating antibiotics nicely. Patient has percutaneous tls drain and has about 7 cc of blood/fulid collection. Patient has no other complaints. Objective: Incision site is well coapted with no evidence of dehiscence. No erythema and edema surrounding surgical site noted. No drainage. No lymphadenopathy. No lymphangitis. No surrounding cellulitis. tls drainage with 7 cc of blood drainage. Patient has no pain to palpation of right calf. Negative Badillo's test. Assessment: (Z98.890) Post-operative state (primary encounter diagnosis) Plan: Patient was examined and informed of current findings He is s/p first ray amputation Pathology of post-lavage with no evidence of osteomyelitis. Cultures of pre-lavage mssa. Post-lavage with no growth. He is to continue with antibiotics I am going to keep drain in until no further drainage collected. Patient will perform dressing change daily to consist of betadine and silvercel. Will order post-op xrays. Patient is doing very well Patient will have f/u next week. Arminda Obregon DPM Referring Provider: ARMINDA OBREGON [[id number]] Allergies As of Date: 05/30/2018 (No Known Allergies) Date Reviewed: 05/30/2018 Reviewed by: Libby Thibodeaux RN - Fully Assessed Reason for Visit: Post Op [174] Cmt: s/p 05/25 for delayed closure right great toe Reason For Visit History Recorded Primary Visit Diagnosis:Post-operative state [Z98.890] Order(s):XR FOOT GENERAL 3V AP/LAT/OBL RT [[id number]] Order #: [id number] FUTURE Prescriptions as of 05/30/2018 Sig: METFORMIN ER 500 MG TABLET,EX* TAKE 2 TABLETS BY MOUTH TWICE* PEN NEEDLE, DIABETIC 31 GAUGE* 1 Each once daily. PEN NEEDLE, DIABETIC 31 GAUGE* 1 Each four times daily. INSULIN GLARGINE (U-100) 100 * Inject 22 Units subcutaneousl* INSULIN ASPART U-100 100 UNI* Inject with meals according t* ATORVASTATIN 10 MG TABLET TAKE 1 TABLET BY MOUTH DAILY * Patient taking differently: Patient taking 40 mg daily LOSARTAN 50 MG TABLET Take 1 tablet by mouth once d* BLOOD SUGAR DIAGNOSTIC STRIPS Test blood sugar(s) 5 times d* WARFARIN 5 MG TABLET TAKE 5mg on Sundays, 10 mg on* DULAGLUTIDE 1.5 MG/0.5 ML SUB* Inject 1.5 mg subcutaneously * METOPROLOL SUCCINATE ER 200 M* TAKE 1 TABLET BY MOUTH ONCE D* WARFARIN 5 MG TABLET TAKE 1 TAB BY MOUTH ON SATURDAY* ASPIRIN 81 MG TABLET,DELAYED * Take 1 tablet by mouth once d* INSULIN SYRINGE-NEEDLE U-100 * Use 1 syringe for insulin inj* Problem List As Of Date 05/30/2018 Noted Resolved Sciatica [M54.30] INVALID FOR*06/20/2016 Diabetes mellitus with neurological manifestati*INVALID FOR* Abscess [L02.91] INVALID FOR*06/20/2016 Non-healing surgical wound [T81.89XA] INVALID FOR*06/20/2016 Cellulitis and abscess [L03.90, L02.91] INVALID FOR*06/20/2016 Skin lesion [L98.9] INVALID FOR*06/20/2016 Hyperlipidemia with target LDL less than 100 [E*INVALID FOR* Essential hypertension, benign [I10] INVALID FOR* Morbid obesity with BMI of 40.0-44.9, adult (HC*INVALID FOR*08/19/2017 Encounter for monitoring coumadin therapy [Z51.*INVALID FOR* More... Pulmonary embolus, right (HCC) [I26.99] INVALID FOR*08/19/2017 Callus of foot [L84] INVALID FOR* Tinea of nail [B35.1] INVALID FOR* Cholelithiasis [K80.20] INVALID FOR* S/P aortic valve replacement [Z95.2] INVALID FOR*06/20/2016 Status post aortic valve repair [Z98.890] INVALID FOR* Type 2 diabetes mellitus with stage 3 chronic k*INVALID FOR* Obesity, Class II, BMI 35-39.9 [E66.9] INVALID FOR* Chronic anticoagulation [Z79.01] INVALID FOR* Other instructions from your clinician: Apply betadine to sutures twice a day. Cover with 4x4s and secure with yu. Apply BERNIE to R foot and ankle. Leave drain in place. Continue post op shoe Encounter Status:Closed by ARMINDA OBREGON DPM on 05/30/18 PROGRESS Observed: 05/30/2018 Status: COMPLETED Source: [place] 9:44 AM [facility] REPOSITORY HNO ID: [id number] Author: Libby Thibodeaux RN Service: (none) Author Type: (none) Type: Progress Notes Filed: 05/30/2018 10:19 PM Note Text: AMB ROOMING INTAKE FLOWSHEET DATA Risk Screening Do you have concerns about personal safety or safety in the home?: No S/p delayed closure of right great toe on 05/25/18. Here for follow up visit. Wears the post-op shoe with ambulation AND is weight bearing. Denies pain . Libby Thibodeaux RN PROGRESS Observed: 05/29/2018 Status: COMPLETED Source: [place] 4:45 PM [facility] REPOSITORY HNO ID: [id number] Author: Blaire De La Torre RN Service: (none) Author Type: (none) Type: Progress Notes Filed: 05/29/2018 4:54 PM Note Text: OPERATIVE NOTATION FOR [facility] SURGICAL PROCEDURE. Richard Roy 1945 [id number] male May 25, 2018 PROCEDURE: Partial 1st ray resection, R May 28, 2018 PROCEDURE: Delayed closure of R foot wound SURGEON: Arminda Obregon DPM HUC: None DEPT: WQ PROVIDER: Arminda Obregon DPM POS: [id number] DIAGNOSIS: (E11.621, L97.519) Diabetic ulcer of toe of right foot associated with type 2 diabetes mellitus, unspecified ulcer stage (HCC) (primary encounter diagnosis) (T81.30XA) Wound dehiscence ASA CLASS: 2 - mild FINDINGS: see path COMPLICATIONS: None PMHx - PAST MEDICAL HISTORY Diagnosis Date - Cholelithiasis 09/25/2013 - Diabetes mellitus with neurological manifestation (HCC) 09/08/2010 - Diverticulosis of colon (without mention of hemorrhage) - Encounter for monitoring Coumadin therapy 09/23/2013 INR goal 2.5-3.5 - Essential hypertension, benign 10/28/2012 - 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) 05/25/2018 - Hyperlipidemia LDL goal < 100 04/01/2012 - Pulmonary embolus, right ([facility]) 09/25/2013 - Status post aortic valve repair 2004 - Thoracic aneurysm without mention of rupture - Type 2 diabetes mellitus with stage 3 chronic kidney disease, with long-term current use of insulin ([facility]) 06/20/2016 - Type II or unspecified type diabetes mellitus without mention of complication, not stated as uncontrolled COMORBIDITIES - HTN, DM2 Post Op Occurrences - None Wound Classification - Clean Operative note dictated in the [facility] dictation system. DISCHARGE SUMMARY Observed: 05/29/2018 Status: F Source: [place] 2:34 PM [facility] REPOSITORY [facility] Medical Records Department [address] [place] [address] Discharge Summary 05/29/18 1426 MR#: [id number] Acct: [id number] Name: RICHARD ROY Rep #: [id number] : 1945 72 From: Bear Nolan MD PCP: Dmitry Roberto III, MD Status: ADM IN Location: MS3 [id number] Discharge Date and Diagnosis - Problem List Patient Problems: Active and Suspected Problems Wound dehiscence (Acute) Date of Admission: 05/22/18 Date of Discharge: 05/29/18 - Primary Discharge Diagnosis Active and Suspected Problems MSSA acute right foot diabetic infection/osteomyelitis of the first metatarsal head with suspected abscess, status post incision and drainage of the right foot with partial first ray resection as well as delayed closure of the wound. 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 Findings consistent with osteomyelitis of the first metatarsal head. 2. Suspected abscess distal to the first metatarsal head. Electronically Signed: Mila Russell MD at 21:00 EST Tel , Service support , Foot X-Ray 05/25/18 08:00 IMPRESSION: Amputation of the distal first metatarsal in the OR. Electronically Signed: Leighton Fabian DO at 14:19 EST Tel [phone], Service support , Foot X-Ray 05/25/18 10:31 IMPRESSION: As above Electronically Signed: Alejandro Singh DO at 15:25 EST Tel , Service support , Foot X-Ray 05/28/18 12:00 IMPRESSION: Fluoroscopic guidance for wound closure of right foot. Prior amputation of the first metatarsal again noted. Electronically Signed: Jojo Wilcox MD at 12:09 EST , Service support , Consultations 05/22/18 14:37 Consult: Onc/Wound/over short and damage clerk Routine Comment: Reason for Consult:: for poosible woun vac Dr. ndiaye, infectious disease. Dr. Romano,[facility] podiatry medicine. Operations: - - Incision and drainage of the right foot with first ray resection, delayed closure. Summary of Care Provided: Patient seen and examined on the discharge and appeared to be stable for discharge home. He denied any significant complaints. His vital signs were stable. 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 On admission, MRI of the right foot performed and revealed findings consistent with osteomyelitis of the first metatarsal head as well as suspected abscess distal to the first metatarsal head. Podiatry was consulted and patient underwent incision and drainage of the right foot as well as partial first ray resection. Later, patient went for delayed wound closure. He was treated with IV cefazolin. His blood culture showed no growth in 5 days. Right foot wound and bone culture revealed MSSA. Infectious disease consulted and recommended IV antibiotics with IV cefazolin within date of June,. Patient has a history of PE and he has been on long-term Coumadin. During this hospital stay, Coumadin held because patient went for surgery twice and upon discharge, Coumadin restarted. There was no indication for bridging with Lovenox or heparin as patient was allowed to ambulate on his right heel according to the seismometer operator. Patient discharged home with home health in a stable medical condition, discharged on IV cefazolin 3 times daily with last day of IV cefazolin is July 06, 2018, restarted back on Coumadin same dose, recommended to do pro time and INR tomorrow, follow-up with PCP in 1 week, follow-up with podiatry tomorrow and follow-up with infectious disease according to Dr. Ndiaye recommendation. Patient Problems: Active and Suspected Problems Wound dehiscence (Acute) - Physical Exam General: Alert, Oriented x3, Cooperative, No apparent distress HEENT: Atraumatic, PERRLA, EOMI, Normocephalic Oral: Moist Mucosa, No Gingival or Mucosal Lesions/ Ulcerations Neck: Supple, No JVD, Negative Carotid Bruits, Trachea Midline, Thyroid Normal Size and Texture Lungs: Clear to auscultation, Normal air movement, No rhonchi, No wheeze, No rales Cardiovascular: Regular rate, Regular Rhythm, Normal S1, Normal S2, PMI Normal Abdomen: Bowel Sounds Present, Soft, Non Tender, Non-Distended Extremities: No clubbing, No cyanosis, No edema Skin: No rashes, Ulcer/ Wound Lymphatic: No Cervical, Supraclavicular, or Inguinal Adenopathy Neurological: Cranial nerves II-XII grossly intact, Neuro grossly intact Psych/Mental Status: Normal Affect, Appropriate Vital Signs Temp Pulse Resp BP Pulse Ox 98.7 F 83 18 136/65 H 97 05/29/18 09:26 05/29/18 09:31 05/29/18 09:26 05/29/18 09:26 05/29/18 09:26 Oxygen Flow Rate (L/min) 2 Oxygen Delivery Method Room Air Weight: 265 lb 15.803 oz Body Mass Index (BMI) 35.1 Finger Stick Blood Glucose 165 Intake and Output for Last 24 Hours Intake Total 1300 / 1300 1900 / 1900 200 / 200 Balance 1300 / 1300 1900 / 1900 200 / 200 Microbiology Past 72 Hours 05/28/18 Unknown Gram Stain - Final Laboratory Tests Past 24 Hrs PT 14.3 INR 1.1 POC Glucose POC Glucose 226 H 162 H 231 H POC Glucose 154 H Discharge Activity: Return to Normal Activity Weight Bearing Status: Weight bearing as tolerated, - - Okay to ambulate to right heel according to Dr. Obregon Call your doctor if your incision/area has: Continuous Slow Oozing, Sudden Increased Bleeding, Increased Pain/ Swelling, Increased Redness, Foul Smelling Discharge Call your doctor if you observe: Fever of 101 or Higher, Shortness of breath, Dizziness, Fainting spells, Chest pain, Increased palpitations (irregular heartbeat), Uncontrolled pain Home Medications: Medications to take at Discharge Metoprolol(XL)Succ [Toprol Xl (Beta Red)] 200 mg PO DAILY 09/16/13 Losartan Potassium 50 mg PO DAILY 03/24/18 Metformin HCl [Metformin HCl ER] 1,000 mg PO BID 03/24/18 Acetaminophen [Tylenol Tablet] 650 mg PO Q6H PRN PRN tablet 04/01/18 Melatonin 10 mg PO QHS PRN PRN tablet 04/01/18 Aspirin [Aspirin, Baby] 81 mg PO DAILY@0800 05/22/18 Atorvastatin Calcium [Lipitor] 40 mg PO QHS 05/22/18 Dulaglutide [Trulicity] 1.5 mg SQ QWEEK 05/22/18 Insulin Glargine [Lantus SoloStar Pen] 22 units SC DAILY 05/22/18 Insulin Lispro [Humalog KwikPen] See Protocol SQ 4X/DAY 05/22/18 Warfarin [Coumadin] 5 mg PO DAILY 05/22/18 Cefazolin 2 gm IV Q8 #120 vial 05/28/18 Following Prescrptions Were Given to Patient: Cefazolin 2 gm IV Q8 #120 vial Other Amb Orders: Prothrombin Time w/INR Time Frame: 05/31/18, Location: Laboratory Primary Care Physician: Dmitry Roberto III, MD [Primary Care Provider] - Please follow up with your Primary Care Physician in: 1 week. Please Follow Up With: Arminda Obregon DPM When: as scheduled tomorrow. Please Follow Up With: Smith Ndiaye MD When: please call his office. Disposition: Home with Home Health Minutes spent on discharge:: 33 Patient Condition:: Stable Medical Necessity - Tobacco Use Smoking Status: Never smoker Meaningful Use Info Meaningful Use Diagnoses (Choose all that apply): None applicable Code Visit Inpatient E AND M: [id number] Disch Hosp 05/29/18 1434 <Electronically signed by Bear Nolan MD> Date Bear Nolan MD Cosigner Signature (if applicable): Date CC: WINSOME Obregon; Dmitry Roberto III, MD; Bear Nolan; Smith Ndiaye MD Signed BEDSIDE GLUCOSE Collected: 05/29/2018 Status: F Source: [place] 11:54 AM [facility] REPOSITORY TYPE CODE TESTS RESULT OUT OF REFERENCE UNITS RANGE LAB L501.080 70-110 mg/dL High BEDSIDE GLU 226 Result Comment: MANAGEMENT OF PATIENT CARE PER NURSING PROTOCOL Performed By: #### L501.080 #### [facility] Laboratory Point of Care [address] [place] [address] DISCHARGE INSTRUCTION Observed: 05/29/2018 Status: F Source: [place] 9:23 AM [facility] REPOSITORY [facility] Medical Records Department [address] [place] [address] Instructions for Home/Discharge Instructions 05/29/18 0921 MR#: [id number] Acct: [id number] Name: RICHARD ROY Rep #: [id number] : 1945 72 From: Bear Nolan MD PCP: Dmitry Roberto III, MD Status: ADM IN - Discharge Diagnoses Current Active Problems: Current Active and Chronic Problems Wound dehiscence (Acute) You will use the following diet at home:: Calorie/Carbohydrate Controlled (specify 1200, 1400, etc) - 1800 justen, Cardiac Your food should be the consistency of: Regular Discharge Activity: Return to Normal Activity Weight Bearing Status: Weight bearing as tolerated, - - Okay to ambulate to right heel according to Dr. Obregon Call your doctor if your incision/area has: Continuous Slow Oozing, Sudden Increased Bleeding, Increased Pain/ Swelling, Increased Redness, Foul Smelling Discharge Call your doctor if you observe: Fever of 101 or Higher, Shortness of breath, Dizziness, Fainting spells, Chest pain, Increased palpitations (irregular heartbeat), Uncontrolled pain Allergies/Adverse Reactions: Allergies propofol Adverse Reaction (Verified 05/22/18 23:27) Other Medications to take at Discharge Metoprolol(XL)Succ [Toprol Xl (Beta Red)] 200 mg PO DAILY 09/16/13 Losartan Potassium 50 mg PO DAILY 03/24/18 Metformin HCl [Metformin HCl ER] 1,000 mg PO BID 03/24/18 Acetaminophen [Tylenol Tablet] 650 mg PO Q6H PRN PRN tablet 04/01/18 Melatonin 10 mg PO QHS PRN PRN tablet 04/01/18 Aspirin [Aspirin, Baby] 81 mg PO DAILY@0800 05/22/18 Atorvastatin Calcium [Lipitor] 40 mg PO QHS 05/22/18 Dulaglutide [Trulicity] 1.5 mg SQ QWEEK 05/22/18 Insulin Glargine [Lantus SoloStar Pen] 22 units SC DAILY 05/22/18 Insulin Lispro [Humalog KwikPen] See Protocol SQ 4X/DAY 05/22/18 Warfarin [Coumadin] 5 mg PO DAILY 05/22/18 Cefazolin 2 gm IV Q8 #120 vial 05/28/18 The following prescriptions were given: Cefazolin 2 gm IV Q8 #120 vial Orders to be completed after discharge: Prothrombin Time w/INR Time Frame: 05/31/18, Location: Laboratory Primary Care Physician: Dmitry Roberto III, MD [Primary Care Provider] - Please follow up with your Primary Care Physician in: 1 week. Test Results: Test results from this visit will be discussed in further detail at your follow-up appointment, if applicable. Please Follow Up With: Arminda Obregon DPM When: as scheduled tomorrow. Please Follow Up With: Smith Ndiaye MD When: please call his office. 05/29/18 8525 <Electronically signed by Bear Nolan MD> Date Bear Nolan MD CC: WINSOME Obregon; Dmitry Roberto III, MD; Smith Ndiaye MD OPERATIVE REPORT Observed: 05/29/2018 Status: F Source: [place] 7:01 AM [facility] REPOSITORY [facility] Medical Records Department [address] [place] [address] Operative Report 05/28/182024 MR#: [id number] Acct: [id number] Name: RICHARD ROY Rep #: [id number] : 1945 72 From: Arminda Obregon DPM PCP: Dmitry Roberto III, MD Status: ADM IN Y Location: [place] [id number] Report of Operation Date of Procedure: 05/28/18 Pre-Operative Diagnosis: diabetic foot infection with osteomyelitis right foot Post-Operative Diagnosis: diabetic foot infection with osteomyelitis, right 1st metatarsal Surgery/Procedure Performed:: delayed closure of wound, right foot Description of Surgical Findings:: good clean tissue with no signs of purulence incision completely closed without tension dry cell sealer: none Type of Anesthesia:: Local MAC Specimen's removed: first metatarsal head, right foot Drains: plain packing Estimated Blood Loss (mL): 5 cc Description of Procedure: Patient is a very pleasant 72 year old male who underwent partial 1st ray resection of right foot this past saturday. He is showing mssa in pre-lavage bone but thus far, no growth in post-lavage bone. He has open wound of right foot that has been treated by dc daily with irrigation. He is scheduled for return to operating room today for debridement of nonviable tissue and bone with delayed closure. I informed patient risks of this procedure not limited to infection, pain, swelling, bleeding, hematoma, wound dehiscence, need for advanced wound care, further foot amputation, cardiac arrest, dvt, . I informed patient that following procedure, he will need to remain partial weightbearing to his right heel. Any weight to his foot can result in dehiscence. He understands all risks and consents to proceed. of note, he does have some hardening skin/soft-tissue of distal incision. he understands this will be debrided to allow closure of wound. He also is aware that following procedure, he will likely have post-op drain that will need to be removed. He is scheduled to receive ancef every 8 hours x 6 weeks by Infectious disease. All questions have been answered. no guarantees expressed. patient was transferred from pre-op holding area and placed on the operating room table in the supine position. He was identified by name and procedure. He was placed under mac anesthesia. all remaining suture was removed from his right foot prior to procedure. the right foot was prepped and draped in the usual aseptic technique. Time out was performed making note of procedure and personal involved. Attention was directed to the right foot. there was nonviable/hardening of distal soft-tissue/skin. this was debulked and debrided. Next, attention was directed to the deep subcutaneous tissue. there was good granulation tissue found in the subcutaneous tissue. no purulence was encountered. Attention was directed to the remaining 1st metatarsal. The metatarsal was then smoothed with sagittal saw. a very small resection of bone was removed and sent for pathology and micro. Irrigation was then performed with 3000 cc of normal saline. hemostasis was achieved with cautery and topical thrombin. the surgical incision was closed with 2-0 nylon with combination of simple interrupted and horizontal mattress. the nylon was thrown from skin to deep subcutaneous tissue to allow approximation with well everted skin edges. The wound edges were closed free of tension. a tls drain was placed percutaneous to aid in post-op blood collection. this drain will be removed in approximately 2 days. A post-op dressing was applied consisting of betadine, adaptic, 4x4 guaze, abd, yu and bernie. patient was awakened and found to be in stable condition. He was transferred to pacu in stable condition. Patient will be readmitted to floor. I will evaluate patient tomorrow and possible discharge on . He will f/u in my outpatient clinic this coming Saturday. Drain will be removed on Saturday if no longer necessary. He will be followed by me weekly. 05/29/18 0701 <Electronically signed by Arminda Obregon DPM> Date Arminda Obregon DPM CC: WINSOME Obregon; Landen Blanco MD; Dmitry Roberto III, MD; Smith Ndiaye MD Signed BEDSIDE GLUCOSE Collected: 05/29/2018 Status: F Source: [place] 6:56 AM [facility] REPOSITORY TYPE CODE TESTS RESULT OUT OF REFERENCE UNITS RANGE LAB L501.080 70-110 mg/dL High BEDSIDE GLU 162 Result Comment: MANAGEMENT OF PATIENT CARE PER NURSING PROTOCOL Performed By: #### L501.080 #### [facility] Laboratory Point of Care [address] [place], [place] [address] PROTHROMBIN TIME W/INR Collected: 05/29/2018 Status: F Source: [place] 6:00 AM [facility] REPOSITORY Order Comment: SPECIMEN OBTAINED FROM LINE DRAW TYPE CODE TESTS RESULT OUT OF RANGE REFERENCE UNITS LAB L300.4150 11.7-14.9 SECONDS Normal PROTIME 14.3 LAB L300.4200 Normal INR 1.1 Performed By: #### L300.3900 #### [facility] Laboratory [place] [address], [address] CNOP Observed: 05/29/2018 Status: COMPLETED Source: [place] 12:00 AM [facility] REPOSITORY Operative Note (Enc) (PODIWS) Progress Notes: Blaire De La Torre RN 05/29/2018 4:54 PM Signed OPERATIVE NOTATION FOR [facility] SURGICAL PROCEDURE. Richard Roy 1945 [id number] male May 25, 2018 PROCEDURE: Partial 1st ray resection, R May 28, 2018 PROCEDURE: Delayed closure of R foot wound SURGEON: Arminda Obregon DPM HUC: None DEPT: WQ PROVIDER: Arminda Obregon DPM POS: [id number] DIAGNOSIS: (E11.621, L97.519) Diabetic ulcer of toe of right foot associated with type 2 diabetes mellitus, unspecified ulcer stage ([facility]) (primary encounter diagnosis) (T81.30XA) Wound dehiscence ASA CLASS: 2 - mild FINDINGS: see path COMPLICATIONS: None PMHx - PAST MEDICAL HISTORY Diagnosis Date - Cholelithiasis 09/25/2013 - Diabetes mellitus with neurological manifestation ([facility]) 09/08/2010 - Diverticulosis of colon (without mention of hemorrhage) - Encounter for monitoring Coumadin therapy 09/23/2013 INR goal 2.5-3.5 - Essential hypertension, benign 10/28/2012 - 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 ([facility]) 05/25/2018 - Hyperlipidemia LDL goal < 100 04/01/2012 - Pulmonary embolus, right ([facility]) 09/25/2013 - Status post aortic valve repair 2004 - Thoracic aneurysm without mention of rupture - Type 2 diabetes mellitus with stage 3 chronic kidney disease, with long-term current use of insulin ([facility]) 06/20/2016 - Type II or unspecified type diabetes mellitus without mention of complication, not stated as uncontrolled COMORBIDITIES - HTN, DM2 Post Op Occurrences - None Wound Classification - Clean Operative note dictated in the [facility] dictation system. Encounter Status:Closed by BLAIRE DE LA TORRE RN on 05/29/18 BEDSIDE GLUCOSE Collected: 05/28/2018 Status: F Source: [place] 9:07 PM [facility] REPOSITORY TYPE CODE TESTS RESULT OUT OF REFERENCE UNITS RANGE LAB L501.080 70-110 mg/dL High BEDSIDE GLU 231 Result Comment: MANAGEMENT OF PATIENT CARE PER NURSING PROTOCOL Performed By: #### L501.080 #### [facility] Laboratory Point of Care [address] [place] [address] BEDSIDE GLUCOSE Collected: 05/28/2018 Status: F Source: [place] 4:28 PM [facility] REPOSITORY TYPE CODE TESTS RESULT OUT OF REFERENCE UNITS RANGE LAB L501.080 70-110 mg/dL High BEDSIDE GLU 154 Result Comment: MANAGEMENT OF PATIENT CARE PER NURSING PROTOCOL Performed By: #### L501.080 #### [facility] Laboratory Point of Care [address] [facility]. [place] [address] FOOT MIN 3 VIEWS Observed: 05/28/2018 Status: F Source: [place] 11:47 AM [facility] REPOSITORY [facility] Imaging Services [address] [place] [address] Foot min 3 Views MR#: [id number] Acct: [id number] Name: RICHARD ROY Rep #: [id number] : 1945 M 72 From: Genaro Wilcox MD PCP: Dmitry Roberto III, MD Status: ADM IN Study: Foot min 3 Views Date of Exam: 05/28/18 Exam# [id number] Ordering Dr: Arminda Obregon DPM STUDY: X-RAY - RIGHT FOOT CLINICAL: Male, 72 years old. Wound closure. TECHNIQUE: Fluoroscopic assistance was provided to Dr. Sharma. 5 intraprocedural fluoroscopic spot view(s) of the foot are submitted. FLUOROSCOPY TIME: 25 seconds. 4.3584 cGy*cm2 COMPARISON: 2 portable views of the right foot May 25, 2018. FINDINGS: Again seen is prior amputation through the mid first metatarsal Normal second through fifth metatarsophalangeal joints. Normal visualized interphalangeal joints and phalanges of the lesser toes. There is deformity of the distal medial soft tissues of the foot overlying the first metatarsal amputation site, in part related to the surgical wound. In some images, a radiopaque device is seen along the septation margin of the first metatarsal. RAD/Foot min 3 Views IMPRESSION: Fluoroscopic guidance for wound closure of right foot. Prior amputation of the first metatarsal again noted. Electronically Signed: Jojo Wilcox MD at 12:09 EST , Service support , CC: WINSOME Obregon; Dmitry Roberto III, MD Pest Management Supervisor: Signed 12 LEAD ELECTROCARDIOGRAM Observed: 05/28/2018 Status: F Source: [place] 11:36 AM [facility] REPOSITORY [facility] Cardiovascular Services [address] [place] [id number] Lead EKG 05/25/18 0523 MR#: [id number] Acct: [id number] Name: RICHARD ROY Rep #: [id number] : 1945 72 From: Júnior Chandra MD Attending Dr: Bear Nolan Status: ADM IN Ordering Dr: Aneesh Nuñez MD Date: 05/25/18 Location: [facility] Sex: M C Admitted: 05/22/18 Test Reason : AM EKG Blood Pressure : / mmHG Vent. Rate : 078 BPM Atrial Rate : 078 BPM P-R Int : 160 ms QRS Dur : 150 ms QT Int : 428 ms P-R-T Axes : 016 -54 -03 degrees QTc Int : 487 ms Normal sinus rhythm Right bundle branch block Left anterior fascicular block Bifascicular block Abnormal ECG When compared with ECG of 28-MAR-2018 04:55, No significant change was found Confirmed by CORAZON COLBERT, JÚNIOR ([id number]), graphic editor MARY INMAN ([id number]) on 05/28/2018 11:36:18 AM Referred By: Landen Blanco Confirmed By:JÚNIOR CHANDRA MD 05/28/18 1136 Date Júnior Chandra MD CC: Landen Blanco MD; Aneesh Nuñez MD; Dmitry Roberto III, MD; Bear Nolan Signed BEDSIDE GLUCOSE Collected: 05/28/2018 Status: F Source: PATTIO 10:11 AM [facility] REPOSITORY TYPE CODE TESTS RESULT OUT OF REFERENCE UNITS RANGE LAB L501.080 70-110 mg/dL High BEDSIDE GLU 188 Result Comment: MANAGEMENT OF PATIENT CARE PER NURSING PROTOCOL Performed By: #### L501.080 #### [facility] Point of Care [address] [place] [address] BEDSIDE GLUCOSE Collected: 05/28/2018 Status: F Source: [place] 6:49 AM [facility] REPOSITORY TYPE CODE TESTS RESULT OUT OF REFERENCE UNITS RANGE LAB L501.080 70-110 mg/dL High BEDSIDE GLU 207 Result Comment: MANAGEMENT OF PATIENT CARE PER NURSING PROTOCOL Performed By: #### L501.080 #### [facility] Point of Care [address] [place] [address] OPERATIVE REPORT Observed: 05/28/2018 Status: F Source: [place] 6:13 AM [facility] REPOSITORY [facility] Medical Records Department [address] [place] [address] Operative Report 05/25/185 MR#: [id number] Acct: [id number] Name: RICHARD ROY Rep #: [id number] : 1945 72 From: Arminda Obregon DPM PCP: Dmitry Roberto III, MD Status: ADM IN Y Location: [facility] [id number] Report of Operation Date of Procedure: 05/25/18 Pre-Operative Diagnosis: diabetic foot infection with osteomyelitis right foot Post-Operative Diagnosis: diabetic foot infection with osteomyelitis, right 1st metatarsal Surgery/Procedure Performed:: incision and drainage right foot with partial 1st ray resection Description of Surgical Findings:: ulceration with underlying 1st metatarsal with probe to bone and findings concerning for osteomyelitis of first metatarsal head. mild serous drainage present. wound packed up and will plan for delayed closure on Saturday. dry cell sealer: none Type of Anesthesia:: Local MAC Specimen's removed: first metatarsal head, right foot Drains: plain packing Estimated Blood Loss (mL): 100 cc Description of Procedure: patient is a 72 year old male admitted for diabetic foot infection of right foot. He underwent right hallux amputation in March for MSSA osteomyelitis. He was treated for 6 weeks with IV antibiotics as post-lavage cultures of 1st metatarsal was significant for residual osteomyelitis. due to post-op drainage, he developed dehiscence. Dehiscence was initially treated with local wound care and compression. when his wound failed to improve, wound vac therapy was instituted but unfortunately, patient had issues maintaining seal. Several weeks ago, the wound was closed with suture and following one week, the foot had appeared to be healing. Patient was seen this past at which time, the previously closed wound had opened up and there was serous drainage present. I discussed with patient this past regarding the present wound. we discussed referral to hyperbarics and trial of wound vac therapy a subsequent time vs surgical intervention for partial first ray resection and closure of wound. after discussion, patient selected surgical intervention. Patient was admitted to [facility]. upon admission, his INR was 3.1. Ancef was ordered by primary team. MRI was ordered which revealed osteomyelitis of 1st metatarsal head and conerning abscess. Infectious disease was consulted. Patient has been afebrile and wbc has been normal. since patient has been stable, I AND D and resection of bone has been delayed while waiting for INR to decrease. On exam yesterday, there was increased drainage of foot ulceration so decision was made yesterday with inr 2.0 to proceed with surgery today. Patient consents for partial first ray resection of right foot with debridement of nonviable tissue. discussed risks of this procedure not limited to infection, pain, swelling, bleeding, transfer lesions, hematoma, wound dehiscence, need for advanced wound care, further bone resection, further foot or leg amputation, cardiac arrest, dvt, . Patient fully understands rationale for surgery and consents to proceed. Patient was transferred to operating room and placed on operating room table in supine position. he was placed under monitored anesthesia care and the right foot was prepped and draped in usual aseptic technique. the right foot was injected with 0.5% marcaine plain. time out was then performed making note of procedure and personal involved. attention was then directed to right foot where ulceration along medial aspect of right 1st metatarsal was noted. there was serous drainage present. the ulceration of right foot measures 1.4 x 1.0 cm. Incision both proximal and distal to ulceration was performed down to level of bone. there was serous drainage/nonviable tissue present along ulceration and this tissue was collected and sent for tissue culture. Attention was then directed to first metatarsal head. the plantar medial aspect of 1st metatarsal head appeared nonviable. using a sagittal saw, the first metatarsal head was resected with bone resection orientated proximal medial superior to distal lateral plantar. the medial aspect of first metatarsal was sent for micro and the remaining 1st metatarsal was sent for pathology. Irrigation was then performed with 5000 cc of normal saline. clean instruments and gloves were exchanged. a post-lavage sample of bone was sent for pathology and micro. cautery was performed and the wound was packed with topical thrombin, gel foam, plain packing. retention suture was placed proximally but distal incision was left open. wound appears free of tension and wound appears to have potential to close freely without tension post-op dressing was applied consisting of betadine adaptic, 4x4, guaze, yu and bernie. Patient was awakened and found to be in stable condition. Patient will continue with antibiotics. I will perform dressing changes with irrigation daily. will plan for closure of wound this Saturday. will have primary hold coumadin until wound is closed later this week. 05/28/18 0613 <Electronically signed by Arminda Obregon DPM> Date Arminda Obregon DPM CC: WINSOME Obregon; Landen Blanco MD; Dmitry Roberto III, MD; Smith Ndiaye MD Signed CBC W/DIFF, AUTOMATED Collected: 05/28/2018 Status: F Source: [place] 5:35 AM [facility] REPOSITORY Order Comment: SPECIMEN OBTAINED FROM LINE DRAW TYPE CODE TESTS RESULT OUT OF RANGE REFERENCE UNITS LAB L100.1000 4.4-11.0 K/mm3 Normal WBC 10.6 LAB L100.1200 4.6-6.2 M/mm3 Low RBC 3.91 LAB L100.1300 13.0-16.5 g/dl Low HGB 10.4 LAB L100.1400 40-54 % Low HCT 33.3 LAB L100.1500 80-94 fL Normal MCV 85.2 LAB L100.1600 27.0-32.0 pg Low MCH 26.6 LAB L100.1700 32-36 g/gl Low MCHC 31.2 LAB L100.1810 11.6-14.6 % Normal RDW CV 14.2 LAB L100.1820 35.1-43.9 fl Normal RDW SD 43.9 LAB L100.1900 150-450 K/mm3 Normal PLT 276 LAB L100.2000 6.2-12.0 fl Normal MPV 8.7 LAB L100.2100 47-70 % Normal NEUT% 66.3 LAB L100.2200 19-41 % Normal LY% 20.3 LAB L100.2300 0-10 % Normal MONO% 7.7 LAB L100.2400 0-5 % Normal EO% 4.9 LAB L100.2500 0-1 % Normal BASO% 0.1 LAB L100.2550 0.0-0.9 % Normal IM GRAN % 0.700 Result Comment: IG% - Immature Granulocytes (promyelocytes, myelocytes and metamyelocytes) > 1% indicates that a LEFT SHIFT is Present. LAB L100.2620 2.0-7.7 X10 3/uL Normal Absolute Neut 7.0 LAB L100.2720 0.83-4.51 X10 3/ul Normal Absolute Lymph 2.15 Performed By: #### L100.0100 #### [facility] [place], [address] BASIC METABOLIC Collected: 05/28/2018 Status: F Source: [place] PROFILE (BMP) 5:35 AM [facility] REPOSITORY Order Comment: SPECIMEN OBTAINED FROM LINE DRAW TYPE CODE TESTS RESULT OUT OF RANGE REFERENCE UNITS LAB L501.0100 74-106 mg/dL High GLU 165 Result Comment: Fasting Glucose result greater than or equal to 126 mg/dL suggests DIABETES MELLITUS per A.D.A. criteria. Please note revised GLUCOSE reference range effective 2017. LAB L501.1000 7-18 mg/dL High BUN 23 LAB L501.1100 0.70-1.30 mg/dL Normal CREAT,SERUM 1.23 Result Comment: The validity of the calculated GFR AND GFRAA in patients over 70 years has not been determined. Clinical correlation is essential. LAB L501.1110 >60 mL/min Normal EST GFR 62 Result Comment: Non- GFR Calc LAB L501.1115 >60 mL/min Normal EST GFR - AA 75 Result Comment: GFR Calc LAB L501.1255 ml/min Normal Estimated CRCL 63.15 LAB L501.1300 10-20 RATIO Normal BUN/CRE 18.7 LAB L501.2200 8.5-10 mg/dL Normal .1 CA 8.8 LAB L501.5300 136-14 mmol/L Normal 5 NA 140 LAB L501.5600 3.5-5. mmol/L Normal 1 K 4.3 LAB L501.5900 98-107 mmol/L Normal CL 103 LAB L501.6100 21.0-3 mmol/L Normal 2.0 CO2 30.0 LAB L501.6200 5-15 Normal GAP 7 Performed By: #### L500.2500 #### [facility] [address] [place], [address] Observed: 05/28/2018 Status: F Source: [place] CULTURE, DEEP WOUND 12:00 AM [facility] REPOSITORY Order Date: 02/13/17 Comments: 1ST METATARSAL PRE-LAVAGE BONE Gram Stain Gram Stain Rare Red Blood Cells No organisms seen No White Blood Cells Wound Culture ONE COLONY ON ONE PLATE NO GROWTH IN BROTH MEDIUM ORGANISM 1: Staphylococcus aureus Amount Growth Very Rare Staphylococcus aureus: REACTION Benzylpenicillin NF >=0.5 R Cefoxitin *NF - Clindamycin $$ <=0.25 S Inducable Clindamycin Resistan - Erythromycin $ <=0.25 S Gentamicin $ <=0.5 S Levofloxacin $ 0.25 S Linezolid $$$$ 2 S Moxifloxicin *NF <=0.25 S Oxacillin NF <=0.25 S Tigecycline $$$$ <=0.12 S Rifampin $$ <=0.5 S Tetracycline NF <=1 S Trimethoprim/Sulfametho $ <=10 S Vancomycin $ 1 S (NF) indicates non-formulary drug at [facility]. Approval by Infectious Disease Specialist required before non-formulary drugs may be ordered and/or dispensed. * CLSI guidelines does not recommend testing of cephalosporins. This interpretation is deduced from Beta-lactam/penicillin results. Cult, Anaerobic No anaerobic bacteria isolated. Performed By: #### M100.1500 #### [facility] [address] [place], [address] BONE (FX/NONFRACTURE) Observed: 05/28/2018 Status: F Source: [place] 12:00 AM [facility] REPOSITORY Patient: RICHARD ROY : 1945 (72/M) Acct Num: [id number] Phys: Bear Nolan Unit Num: [id number] Loc: MS3 [id number] Specimen: [id number] Received: 05/29/18 - 1234 Spec Type: Bone TISSUES 1 TISSUES: Bone of foot, NOS GROSS DESCRIPTION Received in fixative is one container labeled with the patient's name and designated pre-lavage right first metatarsal bone. The specimen consists of an irregular fragment of dark rivas bone measuring 1 x 0.5 x 0.2 cm. The specimen is totally submitted in one cassette after decalcification. / AM:sp 05/29/18 TC: 5 CPT: 79411, 08375 HEADER OPERATION: Partial 1st ray amputation, right foot PRE-OP DIAGNOSIS: Osteomyelitis, right foot TISSUE SUBMITTED: Pre-lavage right 1st metatarsal bone MICROSCOPIC DESCRIPTION Slides are reviewed. MICROSCOPIC DIAGNOSIS Pre-lavage right first metatarsal bone, amputation: A piece of bone with reactive changes, negative for acute osteomyelitis. SJ:radhika 06/04/18 Signed Evaristo Dela Cruz 06/04/18 <signature on file> Performed By: #### PBON #### [facility] [address] [place], [address] [place] Observed: 05/28/2018 Status: F Source: [place] CULT/SMEAR [id number] 12:00 [facility] REPOSITORY Comments: 1ST METATARSAL RIGHT FOOT AFB Smear/Fluor TESTING PERFORMED AT [facility]. ORIGINAL REPORT ON FILE IN LAB CONTAINS ADDITIONAL TEST SITE INFORMATION. Smear, Acid Fast Tissue Grinding Smear: Negative AFB Cult TESTING PERFORMED AT [facility]. ORIGINAL REPORT ON FILE IN LAB CONTAINS ADDITIONAL TEST SITE INFORMATION. Culture, Acid Fast NO ACID-FAST BACILLI ISOLATED AFTER 6 WEEKS. Performed By: #### M100.3880 #### [facility] [address] [place], [address] Observed: 05/28/2018 Status: F Source: [place] DEAN, FUNGUS W/ 12:00 [facility] [id number] REPOSITORY Comments: PRE-LAVAGE RIGHT 1ST METATARSAL Is this test to exclude patient from TB Isolation? Breonna Reese,[id number] TESTING PERFORMED AT [facility]. ORIGINAL REPORT ON FILE IN LAB CONTAINS ADDITIONAL TEST SITE INFORMATION. CUF No yeast or mold isolated after [address] [facility] ORIGINAL REPORT ON FILE IN LAB CONTAINS ADDITIONAL TEST SITE INFORMATION. Fungus Stain No yeast or mold observed. Performed By: #### M600.1900 #### [facility] [address] [place] [address]. [place], [place], [id number] BEDSIDE GLUCOSE Collected: 05/27/2018 Status: F Source: [place] 10:13 PM [facility] REPOSITORY TYPE CODE TESTS RESULT OUT OF REFERENCE UNITS RANGE LAB L501.080 70-110 mg/dL High BEDSIDE GLU 230 Result Comment: MANAGEMENT OF PATIENT CARE PER NURSING PROTOCOL Performed By: #### L501.080 #### [facility] Point of Care [address] [place], [place] [address] BEDSIDE GLUCOSE Collected: 05/27/2018 Status: F Source: [place] 4:44 PM [facility] REPOSITORY TYPE CODE TESTS RESULT OUT OF REFERENCE UNITS RANGE LAB L501.080 70-110 mg/dL High BEDSIDE GLU 212 Result Comment: MANAGEMENT OF PATIENT CARE PER NURSING PROTOCOL Performed By: #### L501.080 #### [facility] Point of Care [address] [place] [address] BEDSIDE GLUCOSE Collected: 05/27/2018 Status: F Source: [place] 11:32 AM [facility] REPOSITORY TYPE CODE TESTS RESULT OUT OF REFERENCE UNITS RANGE LAB L501.080 70-110 mg/dL High BEDSIDE GLU 218 Result Comment: MANAGEMENT OF PATIENT CARE PER NURSING PROTOCOL Performed By: #### L501.080 #### [facility] Point of Care [address] [place] [address] BEDSIDE GLUCOSE Collected: 05/27/2018 Status: F Source: [place] 6:43 AM [facility] REPOSITORY TYPE CODE TESTS RESULT OUT OF REFERENCE UNITS RANGE LAB L501.080 70-110 mg/dL High BEDSIDE GLU 198 Result Comment: MANAGEMENT OF PATIENT CARE PER NURSING PROTOCOL Performed By: #### L501.080 #### [facility] Point of Care [address] [place] [address] BEDSIDE GLUCOSE Collected: 05/26/2018 Status: F Source: [place] 9:51 PM [facility] REPOSITORY TYPE CODE TESTS RESULT OUT OF REFERENCE UNITS RANGE LAB L501.080 70-110 mg/dL High BEDSIDE GLU 221 Result Comment: MANAGEMENT OF PATIENT CARE PER NURSING PROTOCOL Performed By: #### L501.080 #### [facility] Point of Care [address] [place] [address] BEDSIDE GLUCOSE Collected: 05/26/2018 Status: F Source: PAT[place] 4:15 PM [facility] REPOSITORY TYPE CODE TESTS RESULT OUT OF REFERENCE UNITS RANGE LAB L501.080 70-110 mg/dL High BEDSIDE GLU 213 Result Comment: MANAGEMENT OF PATIENT CARE PER NURSING PROTOCOL Performed By: #### L501.080 #### [facility] Point of Care [address] [place] [address] BEDSIDE GLUCOSE Collected: 05/26/2018 Status: F Source: PAT[place] 11:34 AM [facility] REPOSITORY TYPE CODE TESTS RESULT OUT OF REFERENCE UNITS RANGE LAB L501.080 70-110 mg/dL High BEDSIDE GLU 262 Result Comment: MANAGEMENT OF PATIENT CARE PER NURSING PROTOCOL Performed By: #### L501.080 #### [facility] Point of Care [address] [place] [address] BEDSIDE GLUCOSE Collected: 05/26/2018 Status: F Source: [place] 6:25 AM [facility] REPOSITORY TYPE CODE TESTS RESULT OUT OF REFERENCE UNITS RANGE LAB L501.080 70-110 mg/dL High BEDSIDE GLU 189 Result Comment: MANAGEMENT OF PATIENT CARE PER NURSING PROTOCOL Performed By: #### L501.080 #### [facility] Point of Care [address] [place] [address] CBC W/DIFF, AUTOMATED Collected: 05/26/2018 Status: F Source: [place] 5:44 AM [facility] REPOSITORY TYPE CODE TESTS RESULT OUT OF RANGE REFERENCE UNITS LAB L100.1000 4.4-11.0 K/mm3 Normal WBC 11.0 LAB L100.1200 4.6-6.2 M/mm3 Low RBC 3.79 LAB L100.1300 13.0-16.5 g/dl Low HGB 10.1 LAB L100.1400 40-54 % Low HCT 32.2 LAB L100.1500 80-94 fL Normal MCV 85.0 LAB L100.1600 27.0-32.0 pg Low MCH 26.6 LAB L100.1700 32-36 g/gl Low MCHC 31.4 LAB L100.1810 11.6-14.6 % Normal RDW CV 14.2 LAB L100.1820 35.1-43.9 fl High RDW SD 44.0 LAB L100.1900 150-450 K/mm3 Normal PLT 244 LAB L100.2000 6.2-12.0 fl Normal MPV 8.7 LAB L100.2100 47-70 % High NEUT% 72.1 LAB L100.2200 19-41 % Low LY% 14.8 LAB L100.2300 0-10 % Normal MONO% 7.6 LAB L100.2400 0-5 % Normal EO% 4.7 LAB L100.2500 0-1 % Normal BASO% 0.3 LAB L100.2550 0.0-0.9 % Normal IM GRAN % 0.500 Result Comment: IG% - Immature Granulocytes (promyelocytes, myelocytes and metamyelocytes) > 1% indicates that a LEFT SHIFT is Present. LAB L100.2620 2.0-7.7 X10 3/uL High Absolute Neut 7.9 LAB L100.2720 0.83-4.51 X10 3/ul Normal Absolute Lymph 1.63 Performed By: #### L100.0100 #### [facility] [address] [place], [address] PROTHROMBIN TIME W/INR Collected: 05/26/2018 Status: F Source: [place] 5:44 AM [facility] REPOSITORY TYPE CODE TESTS RESULT OUT OF RANGE REFERENCE UNITS LAB L300.4150 11.7-14.9 SECONDS High PROTIME 16.4 LAB L300.4200 Normal INR 1.3 Performed By: #### L300.3900 #### [facility] [address] [place], [address] BONE (FX/NONFRACTURE) Observed: 05/26/2018 Status: F Source: [place] 12:00 AM [facility] REPOSITORY Patient: RICHARD ROY : 1945 (72/M) Acct Num: [id number] Phys: Bear Nolan Unit Num: [id number] Loc: MS3 [id number] Specimen: [id number] Received: 05/26/181428 Spec Type: Bone TISSUES 1 TISSUES: A. Bone of foot, NOS B. Bone of foot, NOS COMMENT The bony surgical margin of resection is free of inflammation. GROSS DESCRIPTION A. Received in fixative is one container labeled with the patient's name and designated right first metatarsal head. The specimen consists of bone consistent with metatarsal measuring 3 x 2.5 x 2.5 cm. A small defect is noted near the articular surface consistent with biopsy site. This area is inked in green. The surgical margin of the neck of the metatarsal head is inked in black. The specimen is sectioned and totally submitted in two cassettes after decalcification. B. Received is one container labeled with the patient name and designated right first metatarsal bone post lavage. The specimen consists of one minute fragment of bone that measures 0.2 x 0.2 x 0.1 cm. The specimen is totally submitted in one cassette after decalcification. SJ:elizabeth 05/26/18 TC: 2 CPT: 90913g0, 00934v5 HEADER OPERATION: Partial 1st ray amputation, right foot PRE-OP DIAGNOSIS: Osteomyelitis, right foot TISSUE SUBMITTED: A. Right 1st metatarsal head, B. Right 1st metatarsal bone post lavage MICROSCOPIC DESCRIPTION Slides are reviewed. MICROSCOPIC DIAGNOSIS A. Right first metatarsal head, excision: Acute osteomyelitis. See comment. B. Right first metatarsal bone, post lavage, biopsy: Unremarkable fragment of bone. No evidence of inflammation. AM:elizabeth 05/29/18 Signed [facility] 05/29/18 <signature on file> Performed By: #### PBON #### [facility] [address] [place], [place], [address] BEDSIDE GLUCOSE Collected: 05/25/2018 Status: F Source: PATITO 9:55 PM [facility] REPOSITORY TYPE CODE TESTS RESULT OUT OF REFERENCE UNITS RANGE LAB L501.080 70-110 mg/dL High BEDSIDE GLU 217 Result Comment: MANAGEMENT OF PATIENT CARE PER NURSING PROTOCOL Performed By: #### L501.080 #### [facility] Point of Care [address] [place], [place] [address] BEDSIDE GLUCOSE Collected: 05/25/2018 Status: F Source: PATIT[place] 4:14 PM [facility] REPOSITORY TYPE CODE TESTS RESULT OUT OF REFERENCE UNITS RANGE LAB L501.080 70-110 mg/dL High BEDSIDE GLU 170 Result Comment: MANAGEMENT OF PATIENT CARE PER NURSING PROTOCOL Performed By: #### L501.080 #### [facility] Point of Care [address] [place], [place] [address] CBC W/DIFF, AUTOMATED Collected: 05/25/2018 Status: F Source: PATITO 3:35 PM [facility] REPOSITORY TYPE CODE TESTS RESULT OUT OF RANGE REFERENCE UNITS LAB L100.1000 4.4-11.0 K/mm3 Normal WBC 10.9 LAB L100.1200 4.6-6.2 M/mm3 Low RBC 3.90 LAB L100.1300 13.0-16.5 g/dl Low HGB 10.5 LAB L100.1400 40-54 % Low HCT 33.2 LAB L100.1500 80-94 fL Normal MCV 85.1 LAB L100.1600 27.0-32.0 pg Low MCH 26.9 LAB L100.1700 32-36 g/gl Low MCHC 31.6 LAB L100.1810 11.6-14.6 % Normal RDW CV 14.3 LAB L100.1820 35.1-43.9 fl High RDW SD 44.5 LAB L100.1900 150-450 K/mm3 Normal PLT 253 LAB L100.2000 6.2-12.0 fl Normal MPV 8.7 LAB L100.2100 47-70 % High NEUT% 70.9 LAB L100.2200 19-41 % Low LY% 16.7 LAB L100.2300 0-10 % Normal MONO% 7.2 LAB L100.2400 0-5 % Normal EO% 4.5 LAB L100.2500 0-1 % Normal BASO% 0.1 LAB L100.2550 0.0-0.9 % Normal IM GRAN % 0.600 Result Comment: IG% - Immature Granulocytes (promyelocytes, myelocytes and metamyelocytes) > 1% indicates that a LEFT SHIFT is Present. LAB L100.2620 2.0-7.7 X10 3/uL Normal Absolute Neut 7.7 LAB L100.2720 0.83-4.51 X10 3/ul Normal Absolute Lymph 1.82 Performed By: #### L100.0100 #### [facility] [address] [facility] [place], [address] FOOT 2 VIEWS Observed: 05/25/2018 Status: F Source: [place]AGLAND 10:32 AM [facility] REPOSITORY [facility] Imaging Services [address] [place] [address] Foot 2 Views MR#: [id number] Acct: [id number] Name: RICHARD ROY Rep #: [id number] : 1945 M 72 From: Alejandro Singh DO PCP: Dmitry Roberto III, MD Status: ADM IN Study: Foot 2 Views Date of Exam: 05/25/18 Exam# [id number] Ordering Dr: Arminda Obregon DPM STUDY: X-RAY - RIGHT FOOT CLINICAL: Male, 72 years old. Postoperative, first toe resection TECHNIQUE: 2 view(s) of the foot. COMPARISON: Plain films earlier FINDINGS: Patient has undergone amputation of the first toe at the mid shaft metatarsal level. Soft tissue swelling noted in the remaining soft tissue stump. Remaining osseous structures are within normal limits. RAD/Foot 2 Views IMPRESSION: As above Electronically Signed: Alejandro Singh DO at 15:25 EST Tel , Service support , CC: WINSOME Obregon; Dmitry Roberto III, MD Pest Management Supervisor: Signed FOOT 2 VIEWS Observed: 05/25/2018 Status: F Source: RAGLAND 7:22 AM [facility] REPOSITORY [facility] Imaging Services [address] [place] [address] Foot 2 Views MR#: [id number] Acct: [id number] Name: RICHARD ROY Rep #: [id number] : 1945 M 72 From: Leighton Fabian DO PCP: Dimtry Roberto III, MD Status: ADM IN Study: Foot 2 Views Date of Exam: 05/25/18 Exam# [id number] Ordering Dr: Arminda Obregon DPM STUDY: X-RAY - RIGHT FOOT CLINICAL: Male, 72 years old. Osteomyelitis. First ray resection. TECHNIQUE: 3 view(s) of the foot. COMPARISON: March 31, 2018. FINDINGS: Initial image demonstrates a surgical probe at the head of the first metatarsal. The remainder of the images demonstrate resection of the distal first metatarsal. No other interval changes noted. Please refer to the operative report for further details. RAD/Foot 2 Views IMPRESSION: Amputation of the distal first metatarsal in the OR. Electronically Signed: Leighton PhillipsonDO at 14:19 EST Tel [phone], Service support , CC: WINSOME Obregon; Dmitry Roberto III, MD Pest Management Supervisor: Signed BEDSIDE GLUCOSE Collected: 05/25/2018 Status: F Source: PATITO 6:22 AM [facility] REPOSITORY TYPE CODE TESTS RESULT OUT OF REFERENCE UNITS RANGE LAB L501.080 70-110 mg/dL High BEDSIDE GLU 165 Result Comment: MANAGEMENT OF PATIENT CARE PER NURSING PROTOCOL Performed By: #### L501.080 #### [facility] Point of Care [address] [place], [place] [id number] CBC-COMPLETE BLOOD CNT Collected: 05/25/2018 Status: F Source: [place] NO DIFF 6:01 AM [facility] REPOSITORY TYPE CODE TESTS RESULT OUT OF RANGE REFERENCE UNITS LAB L100.1000 4.4-11.0 K/mm3 Normal WBC 9.1 LAB L100.1200 4.6-6.2 M/mm3 Low RBC 4.04 LAB L100.1300 13.0-16.5 g/dl Low HGB 10.7 LAB L100.1400 40-54 % Low HCT 34.0 LAB L100.1500 80-94 fL Normal MCV 84.2 LAB L100.1600 27.0-32.0 pg Low MCH 26.5 LAB L100.1700 32-36 g/gl Low MCHC 31.5 LAB L100.1810 11.6-14.6 % Normal RDW CV 14.3 LAB L100.1820 35.1-43.9 fl High RDW SD 44.0 LAB L100.1900 150-450 K/mm3 Normal PLT 258 LAB L100.2000 6.2-12.0 fl Normal MPV 9.1 Performed By: #### L100.0500 #### [facility] [address] [place], [address] BASIC METABOLIC Collected: 05/25/2018 Status: F Source: [place] PROFILE (BMP) 6:01 AM [facility] REPOSITORY TYPE CODE TESTS RESULT OUT OF RANGE REFERENCE UNITS LAB L501.0100 74-106 mg/dL High GLU 164 Result Comment: Fasting Glucose result greater than or equal to 126 mg/dL suggests DIABETES MELLITUS per A.D.A. criteria. Please note revised GLUCOSE reference range effective 2017. LAB L501.1000 7-18 mg/dL High BUN 20 LAB L501.1100 0.70-1.30 mg/dL Normal CREAT,SERUM 1.22 Result Comment: The validity of the calculated GFR AND GFRAA in patients over 70 years has not been determined. Clinical correlation is essential. LAB L501.1110 >60 mL/min Normal EST GFR 62 Result Comment: Non- GFR Calc LAB L501.1115 >60 mL/min Normal EST GFR - AA 75 Result Comment: GFR Calc LAB L501.1255 ml/min Normal Estimated CRCL 63.67 LAB L501.1300 10-20 RATIO Normal BUN/CRE 16.4 LAB L501.2200 8.5-10 mg/dL Normal .1 CA 8.8 LAB L501.5300 136-14 mmol/L Normal 5 NA 141 LAB L501.5600 3.5-5. mmol/L Normal 1 K 4.1 LAB L501.5900 98-107 mmol/L Normal CL 104 LAB L501.6100 21.0-3 mmol/L Normal 2.0 CO2 26.0 LAB L501.6200 5-15 Normal GAP 11 Performed By: #### L500.2500 #### [facility] [address] [place], [place], [address] PROTHROMBIN TIME W/INR Collected: 05/25/2018 Status: F Source: PATITO 6:01 AM [facility] REPOSITORY TYPE CODE TESTS RESULT OUT OF RANGE REFERENCE UNITS LAB L300.4150 11.7-14.9 SECONDS High PROTIME 18.9 LAB L300.4200 Normal INR 1.6 Performed By: #### L300.3900 #### [facility] [address] [place], [address] HEMOGLOBIN A1C Collected: 05/25/2018 Status: F Source: [place] 6:01 AM [facility] REPOSITORY TYPE CODE TESTS RESULT OUT OF RANGE REFERENCE UNITS LAB L501.9985 4.2-6.3 % High HGB A1C 6.9 Performed By: #### L501.9985 #### [facility] [address] [place], [address] Observed: 05/25/2018 Status: F Source: [place] CULTURE, DEEP WOUND 12:00 AM [facility] REPOSITORY Order Date: 02/13/17 Comments: PRELAVAGE TISSUE-RIGHT 1ST METATARSAL Gram Stain Gram Stain 4+ Red Blood Cells 1+ White Blood Cells No organisms seen Wound Culture ORGANISM 1: Staphylococcus aureus Amount Growth Very Rare Staphylococcus aureus: REACTION Benzylpenicillin NF >=0.5 R Cefoxitin *NF - Clindamycin $$ <=0.25 S Inducable Clindamycin Resistan - Erythromycin $ <=0.25 S Gentamicin $ <=0.5 S Levofloxacin $ 0.25 S Linezolid $$$$ 2 S Moxifloxicin *NF <=0.25 S Oxacillin NF 0.5 S Tigecycline $$$$ <=0.12 S Rifampin $$ <=0.5 S Tetracycline NF <=1 S Trimethoprim/Sulfametho $ <=10 S Vancomycin $ 1 S (NF) indicates non-formulary drug at [facility]. Approval by Infectious Disease Specialist required before non-formulary drugs may be ordered and/or dispensed. * CLSI guidelines does not recommend testing of cephalosporins. This interpretation is deduced from Beta-lactam/penicillin results. Cult, Anaerobic No anaerobic bacteria isolated. Performed By: #### M100.1500 #### [facility] [address] [place], [address] Observed: 05/25/2018 Status: F Source: [place] CULTURE, DEEP WOUND 12:00 AM [facility] REPOSITORY Order Date: 02/13/17 Comments: PRELAVAGE BONE- RIGHT 1ST METATARSAL Gram Stain Gram Stain 3+ Red Blood Cells No White Blood Cells No organisms seen Wound Culture ORGANISM 1: Staphylococcus aureus Amount Growth Very Rare Staphylococcus aureus: REACTION Benzylpenicillin NF >=0.5 R Cefoxitin *NF - Clindamycin $$ <=0.25 S Inducable Clindamycin Resistan - Erythromycin $ <=0.25 S Gentamicin $ <=0.5 S Levofloxacin $ 0.25 S Linezolid $$$$ 2 S Moxifloxicin *NF <=0.25 S Oxacillin NF 0.5 S Tigecycline $$$$ <=0.12 S Rifampin $$ <=0.5 S Tetracycline NF <=1 S Trimethoprim/Sulfametho $ <=10 S Vancomycin $ 1 S (NF) indicates non-formulary drug at [facility]. Approval by Infectious Disease Specialist required before non-formulary drugs may be ordered and/or dispensed. * CLSI guidelines does not recommend testing of cephalosporins. This interpretation is deduced from Beta-lactam/penicillin results. Cult, Anaerobic No growth in 5 days. Performed By: #### M100.1500 #### [facility] [address] [facility] [place], [address] Observed: 05/25/2018 Status: F Source: [place] CULTURE, DEEP WOUND 12:00 AM [facility] REPOSITORY Order Date: 02/13/17 Comments: POST LAVAGE BONE- RIGHT 1ST METATARSAL Gram Stain Gram Stain No organisms seen No cells seen Wound Culture No growth aerobically. Cult, Anaerobic No growth in 5 days. Performed By: #### M100.1500 #### [facility] [address] [facility] [place], [address] Observed: 05/25/2018 Status: F Source: [place] CULTURE, FUNGUS W/ 12:00 AM [facility] [id number] REPOSITORY Comments: POST LAVAGE BONE- RIGHT 1ST METATARSAL Is this test to exclude patient from TB Isolation? Breonna [id number] TESTING PERFORMED AT [facility]. ORIGINAL REPORT ON FILE IN LAB CONTAINS ADDITIONAL TEST SITE INFORMATION. CUF No yeast or mold isolated after [address] TESTING PERFORMED AT [facility]. ORIGINAL REPORT ON FILE IN LAB CONTAINS ADDITIONAL TEST SITE INFORMATION. Fungus Stain No yeast or mold observed. Performed By: #### M600.1900 #### [facility] [address] [place], [address] Observed: 05/25/2018 Status: F Source: MICHAEL VAZQUEZ W/ 12:00 [facility] [id number] REPOSITORY Comments: PRELAVAGE TISSUE-RIGHT 1ST METATARSAL Is this test to exclude patient from TB Isolation? N Hugh,[id number] TESTING PERFORMED AT [facility]. ORIGINAL REPORT ON FILE IN LAB CONTAINS ADDITIONAL TEST SITE INFORMATION. CUF No yeast or mold isolated after [address] TESTING PERFORMED AT [facility]. ORIGINAL REPORT ON FILE IN LAB CONTAINS ADDITIONAL TEST SITE INFORMATION. Fungus Stain No yeast or mold observed. Performed By: #### M600.1900 #### [facility] [address] [place], [address] Observed: 05/25/2018 Status: F Source: MICHAEL VAZQUEZ W 12:00 [facility] [id number] REPOSITORY Comments: PRELAVAGE BONE-RIGHT 1ST METATARSAL Is this test to exclude patient from TB Isolation? N Cu,[id number] TESTING PERFORMED AT [facility]. ORIGINAL REPORT ON FILE IN LAB CONTAINS ADDITIONAL TEST SITE INFORMATION. CUF No yeast or mold isolated after [address] TESTING PERFORMED AT [facility]. ORIGINAL REPORT ON FILE IN LAB CONTAINS ADDITIONAL TEST SITE INFORMATION. Fungus Stain No yeast or mold observed. Performed By: #### M600.1900 #### [facility] [address] [place], [address] BEDSIDE GLUCOSE Collected: 05/24/2018 Status: F Source: PATITO 10:54 PM [facility] REPOSITORY TYPE CODE TESTS RESULT OUT OF REFERENCE UNITS RANGE LAB L501.080 70-110 mg/dL High BEDSIDE GLU 227 Result Comment: MANAGEMENT OF PATIENT CARE PER NURSING PROTOCOL Performed By: #### L501.080 #### [facility] Point of Care [address] [place] [address] BEDSIDE GLUCOSE Collected: 05/24/2018 Status: F Source: PATIT[place] 4:27 PM [facility] REPOSITORY TYPE CODE TESTS RESULT OUT OF REFERENCE UNITS RANGE LAB L501.080 70-110 mg/dL High BEDSIDE GLU 196 Result Comment: MANAGEMENT OF PATIENT CARE PER NURSING PROTOCOL Performed By: #### L501.080 #### [facility] Point of Care [address] [place] [address] BEDSIDE GLUCOSE Collected: 05/24/2018 Status: F Source: PAT[place] 11:30 AM [facility] REPOSITORY TYPE CODE TESTS RESULT OUT OF REFERENCE UNITS RANGE LAB L501.080 70-110 mg/dL High BEDSIDE GLU 209 Result Comment: MANAGEMENT OF PATIENT CARE PER NURSING PROTOCOL Performed By: #### L501.080 #### [facility] Point of Care [address] [place] [address] PROTHROMBIN TIME W/INR Collected: 05/24/2018 Status: F Source: PATITO 8:15 AM [facility] REPOSITORY TYPE CODE TESTS RESULT OUT OF RANGE REFERENCE UNITS LAB L300.4150 11.7-14.9 SECONDS High PROTIME 22.3 LAB L300.4200 Normal INR 2.0 Performed By: #### L300.3900 #### [facility] [address] [place], [address] BASIC METABOLIC Collected: 05/24/2018 Status: F Source: [place] PROFILE (BMP) 8:15 AM [facility] REPOSITORY TYPE CODE TESTS RESULT OUT OF RANGE REFERENCE UNITS LAB L501.0100 74-106 mg/dL High GLU 173 Result Comment: Fasting Glucose result greater than or equal to 126 mg/dL suggests DIABETES MELLITUS per A.D.A. criteria. Please note revised GLUCOSE reference range effective 2017. LAB L501.1000 7-18 mg/dL Normal BUN 18 LAB L501.1100 0.70-1.30 mg/dL Normal CREAT,SERUM 1.26 Result Comment: The validity of the calculated GFR AND GFRAA in patients over 70 years has not been determined. Clinical correlation is essential. LAB L501.1110 >60 mL/min Normal EST GFR 60 Result Comment: Non- GFR Calc LAB L501.1115 >60 mL/min Normal EST GFR - AA 73 Result Comment: GFR Calc LAB L501.1255 ml/min Normal Estimated CRCL 61.65 LAB L501.1300 10-20 RATIO Normal BUN/CRE 14.3 LAB L501.2200 8.5-10 mg/dL Normal .1 CA 8.9 LAB L501.5300 136-14 mmol/L Normal 5 NA 139 LAB L501.5600 3.5-5. mmol/L Normal 1 K 4.2 LAB L501.5900 98-107 mmol/L Normal CL 103 LAB L501.6100 21.0-3 mmol/L Normal 2.0 CO2 26.0 LAB L501.6200 5-15 Normal GAP 10 Performed By: #### L500.2500 #### [facility] [address] [place], [address] CBC W/DIFF, AUTOMATED Collected: 05/24/2018 Status: F Source: [place] 8:00 AM [facility] REPOSITORY TYPE CODE TESTS RESULT OUT OF RANGE REFERENCE UNITS LAB L100.1000 4.4-11.0 K/mm3 Normal WBC 9.8 LAB L100.1200 4.6-6.2 M/mm3 Low RBC 4.26 LAB L100.1300 13.0-16.5 g/dl Low HGB 11.5 LAB L100.1400 40-54 % Low HCT 35.8 LAB L100.1500 80-94 fL Normal MCV 84.0 LAB L100.1600 27.0-32.0 pg Normal MCH 27.0 LAB L100.1700 32-36 g/gl Normal MCHC 32.1 LAB L100.1810 11.6-14.6 % Normal RDW CV 14.1 LAB L100.1820 35.1-43.9 fl Normal RDW SD 42.1 LAB L100.1900 150-450 K/mm3 Normal PLT 296 LAB L100.2000 6.2-12.0 fl Normal MPV 9.6 LAB L100.2100 47-70 % High NEUT% 70.4 LAB L100.2200 19-41 % Low LY% 16.5 LAB L100.2300 0-10 % Normal MONO% 8.4 LAB L100.2400 0-5 % Normal EO% 3.7 LAB L100.2500 0-1 % Normal BASO% 0.3 LAB L100.2550 0.0-0.9 % Normal IM GRAN % 0.700 Result Comment: IG% - Immature Granulocytes (promyelocytes, myelocytes and metamyelocytes) > 1% indicates that a LEFT SHIFT is Present. LAB L100.2620 2.0-7.7 X10 3/uL Normal Absolute Neut 6.9 LAB L100.2720 0.83-4.51 X10 3/ul Normal Absolute Lymph 1.61 Performed By: #### L100.0100 #### [facility] [address] [place], [address] BEDSIDE GLUCOSE Collected: 05/24/2018 Status: F Source: [place] 7:32 AM [facility] REPOSITORY TYPE CODE TESTS RESULT OUT OF REFERENCE UNITS RANGE LAB L501.080 70-110 mg/dL High BEDSIDE GLU 156 Result Comment: MANAGEMENT OF PATIENT CARE PER NURSING PROTOCOL Performed By: #### L501.080 #### [facility] Point of Care [address] [place] [address] LOWER EXT ARTERIAL Observed: 05/24/2018 Status: F Source: [place] STUDY 5:51 AM [facility] REPOSITORY [facility] Cardiovascular Services [address] [place] [address] 05/24/18 0549 MR#: [id number] Acct: [id number] Name: RICHARD ROY Rep #: [id number] : 1945 72 From: Smith Roberto MD Attending Dr: Lanedn Blanco MD Status: ADM IN Ordering Dr: Date: 05/24/18 Location: MS3 Sex: M C Admitted: 05/22/18 Arterial Study - Arterial Study Arterial Study: Bilateral lower extremity noninvasive arterial exam at rest Patient with a right foot ulcer Right lower extremity Right PT and DP ankle-brachial indices at rest are 1.35 and 1.38 respectively. The right posterior tibial and dorsalis pedis waveforms are triphasic Left lower extremity The left PT and DP ankle-brachial indices at rest are 1.4 and 1.41 respectively. The left digital index is 1.01. The left PT and DP Doppler waveforms are triphasic Impression Normal resting bilateral lower extremity ankle-brachial indices and Doppler waveforms Smith Roberto M.D., F.A.C.S. 05/24/18 0551 <Electronically signed by Smith Roberto MD> Date Smith Roberto MD CC: Landen Blanco MD; Dmitry Roberto III, MD Date Dictated: 05/24/1849 Date Transcribed: 05/24/18548 Pest Management Supervisor: HOA Signed BEDSIDE GLUCOSE Collected: 05/23/2018 Status: F Source: PATITO 10:50 PM [facility] REPOSITORY TYPE CODE TESTS RESULT OUT OF REFERENCE UNITS RANGE LAB L501.080 70-110 mg/dL High BEDSIDE GLU 221 Result Comment: MANAGEMENT OF PATIENT CARE PER NURSING PROTOCOL Performed By: #### L501.080 #### [facility] Point of Care [address] [facility]. [place], [place] [id number] BEDSIDE GLUCOSE Collected: 05/23/2018 Status: F Source: PATITO 4:11 PM [facility] REPOSITORY TYPE CODE TESTS RESULT OUT OF REFERENCE UNITS RANGE LAB L501.080 70-110 mg/dL High BEDSIDE GLU 218 Result Comment: MANAGEMENT OF PATIENT CARE PER NURSING PROTOCOL Performed By: #### L501.080 #### [facility] Point of Care [address] [place], [place] [address] Observed: 05/23/2018 Status: F Source: [place] CULTURE, BLOOD (WB) 1:00 PM [facility] REPOSITORY Has pt arrived? Y BC No growth in 5 days. Performed By: #### M200.1000 #### [facility] [address] [place], [address] Observed: 05/23/2018 Status: F Source: PATITO CULTURE, BLOOD (WB) 12:45 PM [facility] REPOSITORY Has pt arrived? Y BC No growth in 5 days. Performed By: #### M200.1000 #### [facility] [address] [place], [address] CONSULTATION Observed: 05/23/2018 Status: F Source: PATITO 12:13 PM [facility] REPOSITORY [facility] Medical Records Department [address] [place] [address] Consultation 05/23/18 1208 MR#: [id number] Acct: [id number] Name: RICHARD ROY Rep #: [id number] : 1945 72 From: Smith Ndiaye MD PCP: Dmitry Roberto III, MD Status: ADM IN Y Location: PA3 [id number] Problem List (1) Osteomyelitis Status: Chronic Qualifiers: Osteomyelitis type: unspecified type Osteomyelitis location: foot Laterality: right Qualified Code(s): M86.9 - Osteomyelitis, unspecified Comment: right first toe Reason for Consult: osteo Consulted by: Dr. Obregon History of Present Illness: The patient is a 72 year old M who presented 03/2018 with severe sepsis (fever, leukocytosis, ANTHONY, lactic acidosis) due to MSSA bacteremia from R 1st toe osteo - MRI with ? involvement of 1st phalanx. Taken for toe amp by Dr. Obregon 03/25. Discharged on 6 weeks of iv abx at discharge to cover for likely residual osteo and possible endocarditis with q8h cefazolin, stop date 05/07/18. Completed abx, picc removed, had maximo removed and developed some bloody drainage and pain. No fever or chills. MRI 05/22 showed osteo and possible abscess at surgical site. Full ROS performed and neg except as noted above. 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) DM II (diabetes mellitus, type II), controlled (Chronic) Pulmonary emboli (Chronic) HTN (hypertension) (Chronic) Allergies/Adverse Reactions: Allergies propofol Adverse Reaction (Verified 05/22/18 23:27) Other Home Medications: Ambulatory Orders Medication Instructions Recorded Metoprolol(XL)Succ [Toprol Xl 200 mg PO DAILY 09/16/13 Vital Signs Temp Pulse Resp BP Pulse Ox 98.4 F 79 16 146/87 H 95 05/23/18 06:44 05/23/18 08:50 05/23/18 06:44 05/23/18 06:44 05/23/18 10:54 Oxygen Delivery Method Room Air Weight: 120.65 kg Body Mass Index (BMI) 35.1 Finger Stick Blood Glucose 165 Laboratory Tests Past 24 Hrs WBC 8.9 RBC 4.14 L Hgb 11.1 L Hct 35.0 L MCV 84.5 MCH 26.8 L MCHC 31.7 L RDW 14.3 WBC RBC Hgb 10.8 L WBC 10.6 RBC 4.20 L Hgb 11.4 L Hct 35.1 L MCV 83.6 - Other Studies Radiology: [] reviewed Other Studies: [] Route of nutrition/ use of supplements: [] Nutritional Intake: [] IV Site: [] Rodrigues Catheter: [] - Physical Exam General: Alert, Oriented x3, Cooperative, No apparent distress HEENT: Atraumatic, PERRLA, EOMI Neck: Supple, No Nodes Lungs: Clear to auscultation, Normal air movement Cardiovascular: Regular rate, Regular Rhythm Abdomen: Soft, Non Tender, Non-Distended Extremities: No edema Skin: Ulcer/ Wound - R 1st toe IV Site: Peripheral, without redness Musculoskeletal: No Tenderness to Palpation of Joints or Extremities Neurological: Cranial nerves II-XII grossly intact - Assessment/Plan Antibiotics: [] Assessment/Plan: [] Active and Suspected Problems Wound dehiscence (Acute) R 1st metatarsal MSSA osteo and abscess s/p 03/[address] Obregon. Cefazolin ordered this AM, surgical I AND D planned for next 1-2 days. Cxs pending. Will order bcx given his recent associated bacteremia. Will follow, thank you, d/w Dr. Obregon. 05/23/18 1213 <Electronically signed by Smith Ndiaye MD> Date Smith Ndiaye MD Cosigner Signature (if applicable): Date CC: DPNelson Obregon; Landen Blanco MD; Dmitry Roberto III, MD Signed BEDSIDE GLUCOSE Collected: 05/23/2018 Status: F Source: PATITO 11:10 AM [facility] REPOSITORY TYPE CODE TESTS RESULT OUT OF REFERENCE UNITS RANGE LAB L501.080 70-110 mg/dL High BEDSIDE GLU 179 Result Comment: MANAGEMENT OF PATIENT CARE PER NURSING PROTOCOL Performed By: #### L501.080 #### [facility] [address] [facility] [place], [place] [address] BEDSIDE GLUCOSE Collected: 05/23/2018 Status: F Source: PATITO 6:42 AM [facility] REPOSITORY TYPE CODE TESTS RESULT OUT OF REFERENCE UNITS RANGE LAB L501.080 70-110 mg/dL High BEDSIDE GLU 166 Result Comment: MANAGEMENT OF PATIENT CARE PER NURSING PROTOCOL Performed By: #### L501.080 #### [facility] Point of Care [address] [facility] [place] [address] CBC W/DIFF, AUTOMATED Collected: 05/23/2018 Status: F Source: PATITO 6:36 AM [facility] REPOSITORY TYPE CODE TESTS RESULT OUT OF RANGE REFERENCE UNITS LAB L100.1000 4.4-11.0 K/mm3 Normal WBC 10.6 LAB L100.1200 4.6-6.2 M/mm3 Low RBC 4.20 LAB L100.1300 13.0-16.5 g/dl Low HGB 11.4 LAB L100.1400 40-54 % Low HCT 35.1 LAB L100.1500 80-94 fL Normal MCV 83.6 LAB L100.1600 27.0-32.0 pg Normal MCH 27.1 LAB L100.1700 32-36 g/gl Normal MCHC 32.5 LAB L100.1810 11.6-14.6 % Normal RDW CV 14.1 LAB L100.1820 35.1-43.9 fl Normal RDW SD 41.8 LAB L100.1900 150-450 K/mm3 Normal PLT 278 LAB L100.2000 6.2-12.0 fl Normal MPV 9.0 LAB L100.2100 47-70 % High NEUT% 70.2 LAB L100.2200 19-41 % Low LY% 17.3 LAB L100.2300 0-10 % Normal MONO% 8.2 LAB L100.2400 0-5 % Normal EO% 3.5 LAB L100.2500 0-1 % Normal BASO% 0.2 LAB L100.2550 0.0-0.9 % Normal IM GRAN % 0.600 Result Comment: IG% - Immature Granulocytes (promyelocytes, myelocytes and metamyelocytes) > 1% indicates that a LEFT SHIFT is Present. LAB L100.2620 2.0-7.7 X10 3/uL Normal Absolute Neut 7.4 LAB L100.2720 0.83-4.51 X10 3/ul Normal Absolute Lymph 1.83 Performed By: #### L100.0100 #### [facility] [address] [facility]. [place], [place], [address] BASIC METABOLIC Collected: 05/23/2018 Status: F Source: [place] PROFILE ([facility]) 6:36 AM [facility] REPOSITORY TYPE CODE TESTS RESULT OUT OF RANGE REFERENCE UNITS LAB L501.0100 74-106 mg/dL High GLU 151 Result Comment: Fasting Glucose result greater than or equal to 126 mg/dL suggests DIABETES MELLITUS per A.D.A. criteria. Please note revised GLUCOSE reference range effective 2017. LAB L501.1000 7-18 mg/dL Normal BUN 18 LAB L501.1100 0.70-1.30 mg/dL Normal CREAT,SERUM 1.15 Result Comment: The validity of the calculated GFR AND GFRAA in patients over 70 years has not been determined. Clinical correlation is essential. LAB L501.1110 >60 mL/min Normal EST GFR 67 Result Comment: Non- GFR Calc LAB L501.1115 >60 mL/min Normal EST GFR - AA 81 Result Comment: GFR Calc LAB L501.1255 ml/min Normal Estimated CRCL 67.55 LAB L501.1300 10-20 RATIO Normal BUN/CRE 15.7 LAB L501.2200 8.5-10 mg/dL Normal .1 CA 9.1 LAB L501.5300 136-14 mmol/L Normal 5 NA 138 LAB L501.5600 3.5-5. mmol/L Normal 1 K 4.1 LAB L501.5900 98-107 mmol/L Normal CL 103 LAB L501.6100 21.0-3 mmol/L Normal 2.0 CO2 24.0 LAB L501.6200 5-15 Normal GAP 11 Performed By: #### L500.2500 #### [facility] [address] [place], [address] PROTHROMBIN TIME W/INR Collected: 05/23/2018 Status: F Source: PAT[place] 6:36 AM [facility] REPOSITORY TYPE CODE TESTS RESULT OUT OF RANGE REFERENCE UNITS LAB L300.4150 11.7-14.9 SECONDS High PROTIME 27.9 LAB L300.4200 Normal INR 2.6 Performed By: #### L300.3900 #### [facility] [address] [place], [address] HH, HEMOGLOBIN AND Collected: 05/22/2018 Status: F Source: [place] HEMATOCRIT 10:10 PM [facility] REPOSITORY TYPE CODE TESTS RESULT OUT OF RANGE REFERENCE UNITS LAB L100.1300 13.0-16.5 g/dl Low HGB 10.8 LAB L100.1400 40-54 % Low HCT 34.2 Performed By: #### L100.0600 #### [facility] [address] [place], [address] BEDSIDE GLUCOSE Collected: 05/22/2018 Status: F Source: PAT[place]O 9:57 PM [facility] REPOSITORY TYPE CODE TESTS RESULT OUT OF REFERENCE UNITS RANGE LAB L501.080 70-110 mg/dL High BEDSIDE GLU 134 Result Comment: MANAGEMENT OF PATIENT CARE PER NURSING PROTOCOL Performed By: #### L501.080 #### [facility] Point of Care [address] [place] [address] CONSULTATION Observed: 05/22/2018 Status: F Source: [place] 6:23 PM [facility] REPOSITORY [facility] Medical Records Department [address] [place] [address] Consultation 05/22/18 1808 MR#: [id number] Acct: [id number] Name: RICHARD ROY Rep #: [id number] : 1945 72 From: Arminda Obregon DPM PCP: Dmitry Roberto III, MD Status: ADM IN Y Location: [facility] [id number] Reason for Consult Date of Consultation: 05/22/18 History of Present Illness: The patient is a 72 year old M with diabetes who underwent right hallux amputation in march for osteomyelitis. his initial surgical wound was packed open following amputation and then later closed. Unfortunately, several days following delayed closure, he was found to have significant post-operative fluid collection/drainage so the wound was partially opened and treated with wound vac therapy. He has completed 6 weeks of IV antibiotics and has been followed by infectious disease. He has been treated with wound vac therapy but unfortunately, he has been experiencing difficulty maintaining seal and his wound has slowly transitioned into nonhealing. two weeks ago, the wound was closed under sterile technique. Last week, the wound was progressing and showing progress towards healing. Unfortunately, he was seen in my office today and his wound dehisced and there is hypergranulation tissue present. there is no redness to his foot. there is no drainage. there are no local signs of infection. 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 Patient also had an MRSA infection in his abdomen before and had quite extensive debridement. Smoking Status: Never smoker - *Family History Maternal History Items: Heart Disease Patient Problems: Active and Suspected Problems Wound dehiscence (Acute) Objective: patient is alert and orientated x 3. he does not appear to be in any distress vascular: DP and Pt pulses are palpable to right lower extremity. CFT is brisk. skin temperature is warm to warm. Derm: there is full thickness wound dehiscence to right foot. there is blood collection from earlier debridement. no purulence is expressed. wound measures 1.4 cm x 1.0 cm x 1.6 cm depth. there is probe to bone. distal and proximal incision has healed. MS: there right hallux amputation. there is no calf pain present. - Physical Exam Vital Signs Temp Pulse Resp BP Pulse Ox 98.1 F 88 16 126/94 H 96 05/22/18 17:59 05/22/18 17:59 05/22/18 17:59 05/22/18 17:59 05/22/18 17:59 Oxygen Delivery Method Room Air Weight: 120.65 kg Body Mass Index (BMI) 35.1 Finger Stick Blood Glucose 165 Intake and Output for Last 24 Hours Intake Total 350 / 350 Balance 350 / 350 Laboratory Tests Past 24 Hrs WBC RBC Hgb Hct MCV MCH MCHC RDW RDW Differential POC Glucose POC Glucose 104 Assessment/Plan All Active Problems Severe sepsis (Resolved) Wound dehiscence (Acute) Vertigo (Resolved) Cough (Resolved) (dyspnea on exertion) (Resolved) H/O aortic valve repair (Resolved) H/O thoracic aortic aneurysm repair (Resolved) Nausea (Resolved) PAF (paroxysmal atrial fibrillation) (Resolved) Patient was examined at bedside. he is s/p amputation of right hallux complicated by wound dehiscence due to persistent post-op drainage. He has tried wound vac but has not shown any progress. He had attempted delayed closure 2 weeks ago but this has resulted in wound dehiscence. today in my clinic I discussed options not limited to wound vac therapy and hyperbarics vs further bone resection and closure of wound. patient would like to try and resect more bone and try to achieve closure. I informed patient that there is no guarantee that resecting further bone will result in closure but on exam, wound edges do appear to approximate so I suspect if the head of 1st metatarsal is resected, I foresee the ability to close this wound without any tension. I would not try to close again with metatarsal head present as he has already had this performed and resulted in dehiscence so I feel that further bone resection is necessary in order to try this treatment option. Patient is admitted for planned procedure. He understands that further bone resection has potential risks not limited to infection, pain, swelling, bleeding, wound dehiscence, inability to achieve wound closure prompting use of wound vac, further foot amputation, osteomyelitis, cardiac arrest, dvt, . Patient fully understands that following this procedure, i will have him limit walking as any excessive walking can risk complications noted above. I will plan on performing first metatarsal head resection once INR is optimized for surgery. I feel his INR is too high to perform any surgery and if surgery is performed now, likely hematoma is potential risk. Debridement was performed in office prior to admission. there is small blood collection. wound was packed with surgicel. will recheck hemoglobin this evening. Patient scheduled for mri for evaluation of right foot to r/o osteomyelitis of 1st metatarsal, possible abscess vs space infection. patient informed that MRI possible for hematoma given recent debridement. I have consulted id to assist in treatment options post-op pending cultures. will continue to follow. will plan for surgery once INR optimal for surgery, possibly 1.7 or less. will discuss with hospitalist tomorrow. 05/22/18 [id number] <Electronically signed by Arminda Obregon DPM> Date Arminda Obregon DPM Cosigner Signature (if applicable): Date CC: WINSOME Obregon; Landen Blanco MD; Dmitry Roberto III, MD Signed URINALYSIS, COMPLETE Collected: 05/22/2018 Status: F Source: [place] 5:59 PM [facility] REPOSITORY Order Comment: How was Urine Obtained? CLEAN CATCH TYPE CODE TESTS RESULT OUT OF RANGE REFERENCE UNITS LAB L400.3000 Yellow COLOR Normal Yellow LAB L400.3050 Clear Normal CLARITY Clear LAB L400.3200 Normal mg/dl Normal GLUCOSE, UR Normal LAB L400.3300 Negative mg/dL Normal BILIRUBIN URINE Negative LAB L400.3400 Negative mg/dl Normal KETONE UR Negative LAB L400.3465 1.002-1.030 Normal SP.GR. DIPSTX 1.015 LAB L400.3550 5.0 - 8.0 pH UR Normal 6.5 LAB L400.3600 Negative mg/dl High PROT 30 DIPSTX LAB L400.3700 Normal mg/dl High 1 UROBILI LAB L400.3750 Negative Normal NITRITE UR Negative LAB L400.3780 Negative /ul High 25 OCCULT BLOOD-UR LAB L400.3800 Negative /ul High LEUK 25 ESTERASE LAB L400.4050 0-5 /hpf WBC Normal 0-5 SEEN LAB L400.4100 0-5 /hpf 0 Normal RBC-UA SEEN LAB L400.4150 0-5 /hpf SQUAM Normal EPI 0-5 SEEN LAB L400.4300 None Seen /hpf 0 Normal BACTERIA SEEN LAB L400.4350 <or=2+ /hpf 0 Normal MUCUS, URINE SEEN Performed By: #### L400.0001 #### [facility] [address] [place], [address] BEDSIDE GLUCOSE Collected: 05/22/2018 Status: F Source: [place] 4:35 PM [facility] REPOSITORY TYPE CODE TESTS RESULT OUT OF RANGE REFERENCE UNITS LAB L501.080 70-110 mg/dL Normal BEDSIDE GLU 104 Result Comment: MANAGEMENT OF PATIENT CARE PER NURSING PROTOCOL Performed By: #### L501.080 #### [facility] Point of Care [address] [place] [address] HISTORY AND PHYSICAL Observed: 05/22/2018 Status: F Source: [place] EXAM 3:13 PM [facility] REPOSITORY [facility] Medical Records Department [address] [place] [address] History and Physical 05/22/18 1329 MR#: [id number] Acct: [id number] Name: RICHARD ROY Rep #: [id number] : 1945 72 From: Landen Blanco MD PCP: Dmitry Roberto III, MD Status: ADM IN Y Location: MS3 IC854-2 Problem List (1) Wound dehiscence Status: Acute (2) Diabetic neuropathy Status: Chronic Qualifiers: Diabetes mellitus type: type 2 (3) Osteomyelitis Status: Chronic Qualifiers: Osteomyelitis type: unspecified type Osteomyelitis location: foot Laterality: right Qualified Code(s): M86.9 - Osteomyelitis, unspecified Comment: right first toe (4) Pulmonary emboli Status: Chronic (5) 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 Wound cultures came back positive for methicillin sensitive staph aureus and was treated with cefazolin. He completed treatment 2 weeks prior to his current admission. Patient follows up with podiatry Dr Obregon who sent patient from his office after patient was noticed to have developed a dehiscence of his wound. On further questioning patient denied any subjective fever no chills. Denies any warmth or redness involving the right lower extremity. 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 Patient also had an MRSA infection in his abdomen before and had quite extensive debridement. Smoking Status: Never smoker - *Family History Maternal History Items: Heart Disease Review of Systems Constitutional: Denies: Anorexia, Chills, Fever, Night Sweats, Weight Change HEENT: Denies: Head Aches, Sinus Congestion, Sinus Drainage Cardiovascular: Denies: Chest Pain, Orthopnea, Palpitations, Paroxysmal Noc. Dyspnea Respiratory: Denies: Cough, Shortness of breath at rest, Shortness of breath upon exertion, Sputum production Gastrointestinal: Denies: Abdominal Pain, Hematemesis, Hematochezia, Nausea, Melena, Vomiting Genitourinary: Denies: Dysuria, Frequency, Hematuria, Urgency Musculoskeletal: Denies: Joint Pain, Joint Tenderness Skin: Reports: Wounds. Denies: Rash Neurological: Denies: Focal weakness, Numbness, Tingling Psychiatric: Denies: Homicidal Ideations, Suicidal Ideations Hematologic/ Lymphatic: Reports: Easy Bruising, Easy Bleeding VTE Information - Inpt Only VTE Present on Admission: No VTE Mechan Device Prophylaxis: Knee High HERMILO Hose VTE Pharm Prophylaxis ordered?: Yes Patient Problems: Active and Suspected Problems Wound dehiscence (Acute) Objective: GENERAL: cooperative HEENT: Atraumatic; moist oral mucosa EYES; Anicteric, Normal Conjunctiva NECK; supple, normal thyroid, no distended JVD. RESPIRATORY: Diminished to auscultation bilaterally, CARDIOVASCULAR: Regular S1 S2, no audible murmurs GI: soft, non-tender, normoactive bowel sounds, : No Renal angle tenderness; EXTREMITIES: Bleeding from her right hallux stump MUSCULOSKELETAL: No Joint Tenderness; no muscle waisting NEURO: Awake; no lateralizing signs. SKIN: No Rash PSYCH; Normal affect - Physical Exam Vital Signs Temp Pulse Resp BP Pulse Ox 98.6 F 83 16 136/73 H 99 05/22/18 13:16 05/22/18 13:16 05/22/18 13:16 05/22/18 13:16 05/22/18 13:16 Oxygen Delivery Method Room Air Weight: 120.656 kg Body Mass Index (BMI) 35.1 Finger Stick Blood Glucose 165 Assessment/Plan All Active Problems Severe sepsis (Resolved) Wound dehiscence (Acute) Vertigo (Resolved) Cough (Resolved) (dyspnea on exertion) (Resolved) H/O aortic valve repair (Resolved) H/O thoracic aortic aneurysm repair (Resolved) Nausea (Resolved) PAF (paroxysmal atrial fibrillation) (Resolved) Patient is a 72-year-old gentleman with multiple comorbidities including recent admission for diabetic foot infection with osteomyelitis involving the right hallux for which he underwent amputation. Hospital stay was apparently complicated by wound with MSSA patient presents with wound dehiscence 1. Wound dehiscence involving the stump of the right big toe for which patient underwent amputation as a result of osteomyelitis with MSSA. Patient has been admitted to regular nursing floor. Cultures were sent on admission. Held off initiating antibiotics. Consultation was placed to podiatry Dr. Obregon as well as Dr. Ndiaye infectious disease 2. 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 Patient oral hypoglycemic agents held did initiate long-acting insulin with sliding scale coverage 3. History of aortic aneurysm status post repair 4. History of aortic valvuloplasty 5. Essential hypertension did continue patient home medications with plans to adjust doses if needed 6. Dyslipidemia 7. History of previous pulmonary embolism patient is on systemic anticoagulation with Coumadin INR is therapeutic 8. DVT prophylaxis already on Coumadin no need for additional measures Code Visit Inpatient E AND M: [id number] Init Hosp L3 05/22/18 1513 <Electronically signed by Landen Blanco MD> Date Landen Blanco MD Cosign Signature: Date (if applicable) CC: Landen Blanco MD; Dmitry Roberto III, MD Signed LOWER EXT/NO JT/W/O Observed: 05/22/2018 Status: F Source: [place] 2:40 PM [facility] REPOSITORY [facility] Imaging Services [address] [place] [address] Lower Ext/No Jt/w/o MR#: [id number] Acct: [id number] Name: RICHARD ROY #: [id number] : 1945 M 72 From: Mila Russell MD PCP: Dmitry Roberto III, MD Status: ADM IN Study: Lower Ext/No Jt/w/o Date of Exam: 05/22/18 Exam# [id number] Ordering Dr: Landen Blanco MD STUDY: MRI RIGHT MIDFOOT REASON FOR EXAM: Male, 72 years old. Osteomyelitis first distal metatarsal. History of prior amputation. TECHNIQUE: Standardized fat and water weighted pulse sequences were obtained in all 3 orthogonal planes. COMPARISON: X-ray foot 03/31/2018. FINDINGS: This study is limited by limited T2-weighted sequences with fat saturation and lack of contrast. Patient is status post amputation at the first MTP joint. There is marked signal abnormality at the amputation site and about the first metatarsal head, including significant edema collection is identified immediately distal to the first metatarsal head measuring approximately 2 x 1 cm. Evaluation is limited without contrast. Ulceration is noted in the medial foot at the level of the first metatarsal head. Marrow edema is noted in the first metatarsal head and distal shaft. There is cortical destruction in the plantar aspect of the first metatarsal head, seen on series 5 image 18. Marrow signal is otherwise unremarkable. Second through fifth metatarsals and phalanges are intact. Joint spaces are well-maintained. Edema of the deep plantar muscles is noted. MRI/Lower Ext/No Jt/w/o IMPRESSION: 1. Findings consistent with osteomyelitis of the first metatarsal head. 2. Suspected abscess distal to the first metatarsal head. Electronically Signed: Mila Russell MD at 21:00 EST Tel , Service support , CC: Landen Blanco MD; Dmitry Roberto III, MD Pest Management Supervisor: Signed Nelson Mcdowell [employer] Collected: 05/22/2018 Status: F Source: PATITO DNA BY PCR 2:15 PM [facility] REPOSITORY TYPE CODE TESTS RESULT OUT OF RANGE REFERENCE UNITS LAB L8200.1100 Negative Normal MRSA Negative RESULT Performed By: #### L8200.1000 #### [facility] [place], [address] CBC W/DIFF, AUTOMATED Collected: 05/22/2018 Status: F Source: [place] 1:51 PM [facility] REPOSITORY TYPE CODE TESTS RESULT OUT OF RANGE REFERENCE UNITS LAB L100.1000 4.4-11.0 K/mm3 Normal WBC 8.9 LAB L100.1200 4.6-6.2 M/mm3 Low RBC 4.14 LAB L100.1300 13.0-16.5 g/dl Low HGB 11.1 LAB L100.1400 40-54 % Low HCT 35.0 LAB L100.1500 80-94 fL Normal MCV 84.5 LAB L100.1600 27.0-32.0 pg Low MCH 26.8 LAB L100.1700 32-36 g/gl Low MCHC 31.7 LAB L100.1810 11.6-14.6 % Normal RDW CV 14.3 LAB L100.1820 35.1-43.9 fl High RDW SD 44.2 LAB L100.1900 150-450 K/mm3 Normal PLT 229 LAB L100.2000 6.2-12.0 fl Normal MPV 8.8 LAB L100.2100 47-70 % High NEUT% 73.0 LAB L100.2200 19-41 % Low LY% 15.5 LAB L100.2300 0-10 % Normal MONO% 7.3 LAB L100.2400 0-5 % Normal EO% 3.6 LAB L100.2500 0-1 % Normal BASO% 0.2 LAB L100.2550 0.0-0.9 % Normal IM GRAN % 0.400 Result Comment: IG% - Immature Granulocytes (promyelocytes, myelocytes and metamyelocytes) > 1% indicates that a LEFT SHIFT is Present. LAB L100.2620 2.0-7.7 X10 3/uL Normal Absolute Neut 6.5 LAB L100.2720 0.83-4.51 X10 3/ul Normal Absolute Lymph 1.38 Performed By: #### L100.0100 #### [facility] [address] [place], [place], [address] PROTHROMBIN TIME W/INR Collected: 05/22/2018 Status: F Source: [place] 1:51 PM [facility] REPOSITORY TYPE CODE TESTS RESULT OUT OF RANGE REFERENCE UNITS LAB L300.4150 11.7-14.9 SECONDS High PROTIME 31.9 LAB L300.4200 Normal INR 3.1 Performed By: #### L300.3900 #### [facility] [address] [place], [address] COMPREHENSIVE METABOLIC Collected: 05/22/2018 Status: F [facility] REPOSITORY TYPE CODE TESTS RESULT OUT OF RANGE REFERENCE UNITS LAB L501.0100 74-106 mg/dL High GLU 128 Result Comment: Fasting Glucose result greater than or equal to 126 mg/dL suggests DIABETES MELLITUS per A.D.A. criteria. Please note revised GLUCOSE reference range effective 2017. LAB L501.1000 7-18 mg/dL High BUN 20 LAB L501.1100 0.70-1.30 mg/dL Normal CREAT,SERUM 1.11 Result Comment: The validity of the calculated GFR AND GFRAA in patients over 70 years has not been determined. Clinical correlation is essential. LAB L501.1110 >60 mL/min Normal EST GFR 70 Result Comment: Non- GFR Calc LAB L501.1115 >60 mL/min Normal EST GFR - AA 84 Result Comment: GFR Calc LAB L501.1255 ml/min Normal Estimated CRCL 69.98 LAB L501.1300 10-20 RATIO Normal BUN/CRE 18.0 LAB L501.1500 6.4-8. g/dL Normal 2 T PROT 6.8 LAB L501.1800 3.2-5. g/dL Low 0 ALB 3.0 LAB L501.1950 2.2-4. g/dL Normal 2 GLOB 3.8 LAB L501.2000 0.9-2. RATIO Low 4 A/G 0.8 LAB L501.2200 8.5-10 mg/dL Normal .1 CA 8.7 LAB L501.4100 15-37 U/L Low AST 6 LAB L501.4305 45-117 U/L Normal ALK P 97 LAB L501.4405 16-61 U/L Normal ALT 18 LAB L501.4600 0.20-1 mg/dL Normal .00 T BILI 0.40 LAB L501.5300 136-14 mmol/L Normal 5 NA 141 LAB L501.5600 3.5-5. mmol/L Normal 1 K 4.9 LAB L501.5900 98-107 mmol/L Normal CL 106 LAB L501.6100 21.0-3 mmol/L Normal 2.0 CO2 28.0 LAB L501.6200 5-15 Normal GAP 7 Performed By: #### L500.4050, L501.5200 #### [facility] [address] [place], [address] MAGNESIUM Collected: 05/22/2018 Status: F Source: [place] 1:51 PM [facility] REPOSITORY TYPE CODE TESTS RESULT OUT OF RANGE REFERENCE UNITS LAB L501.5200 1.6-2.6 mg/dL Normal MG 1.6 Performed By: #### L500.4050, L501.5200 #### [facility] [address] [place], [address] PROGRESS Observed: 05/22/2018 Status: COMPLETED Source: [place] 12:39 PM [facility] [place] REPOSITORY HNO ID: [id number] Author: Arminda Obregon Service: (none) Author Type: Physician Type: Progress Notes Filed: 05/22/2018 12:47 PM Note Text: Follow up podiatric office visit for: Chief Complaint: This 72 year old who presents for follow up:wound dehiscence of right foot. Patient had attempted delayed closure 2 weeks ago and has been doing well. He has had nursing perform dressing changes daily. He denies n/v/f/c. He feels he is doing well. He has no other complaints. Prior to attempted delayed closure, he had been doing wound vac but had issues maintaining good seal. PAIN EVALUATION No data found. Hemoglobin A1C Date Value Ref Range Status 05/12/2018 6.5 (H) 4.3 - 5.6 % Final PCP: Dmitry A Cebul, III MD PAST MEDICAL HISTORY Diagnosis Date - Cholelithiasis 09/25/2013 - Diabetes mellitus with neurological manifestation (HCC) 09/08/2010 - Diverticulosis of colon (without mention of hemorrhage) - Encounter for monitoring Coumadin therapy 09/23/2013 INR goal 2.5-3.5 - Essential hypertension, benign 10/28/2012 - Hyperlipidemia LDL goal < 100 04/01/2012 - Pulmonary embolus, right (HCC) 09/25/2013 - Status post aortic valve repair 2004 - Thoracic aneurysm without mention of rupture - Type 2 diabetes mellitus with stage 3 chronic kidney disease, with long-term current use of insulin ([facility]) 06/20/2016 - Type II or unspecified type diabetes mellitus without mention of complication, not stated as uncontrolled Current Outpatient Prescriptions: insulin needles, DISPOSABLE, (BD INSULIN PEN NEEDLE UF) 31 gauge x 5/16 ndle 1 Each once daily. insulin needles, DISPOSABLE, (BD INSULIN PEN NEEDLE UF) 31 gauge x 5/16 ndle 1 Each four times daily. insulin glargine (LANTUS SOLOSTAR U-100 INSULIN) 100 unit/mL (3 mL) inpn Inject 22 Units subcutaneously daily at bedtime. insulin aspart U-100 (NOVOLOG FLEXPEN U-100 INSULIN) 100 unit/mL inpn Inject with meals according to sliding scale: 100-200=3 units, 201-250=5 units, 251-300=8 units, 301-350=12 units, 351-400=15 units. metFORMIN ER (GLUCOPHAGE XR) 500 mg 24 hr tablet Take 2 tablets by mouth twice daily with meals. atorvastatin (LIPITOR) 10 mg tablet TAKE 1 TABLET BY MOUTH DAILY AT BEDTIME. FOR CHOLESTEROL. (Patient taking differently: Patient taking 40 mg daily) losartan (COZAAR) 50 mg tablet Take 1 tablet by mouth once daily. blood sugar diagnostic (AhandyhandUCH ULTRA TEST) test strip Test blood sugar(s) 5 times daily. Dx: E11.49. Insulin: Yes warfarin (COUMADIN) 5 mg tablet TAKE 5mg on Sundays, 10 mg on ALL OTHER DAYS dulaglutide (TRULICITY) 1.5 mg/0.5 mL pnij Inject 1.5 mg subcutaneously once each week. Inject once per week. Discard Pen After metoprolol succinate ER (TOPROL XL) 200 mg 24 hr tablet TAKE 1 TABLET BY MOUTH ONCE DAILY. warfarin (COUMADIN) 5 mg tablet TAKE 1 TAB BY MOUTH ON SUNDAYS AND THURSDAYS, THEN TAKE 2 TABS BY MOUTH ONCE DAILY ON ALL OTHER DAYS aspirin, enteric coated (ASPIRIN LOW DOSE) 81 mg EC tablet Take 1 tablet by mouth once daily. Insulin Syringe-Needle U-100 (BD INSULIN SYRINGE UF II) 0.5 mL 31 gauge x 5/16 syrg Use 1 syringe for insulin injections five (5) times daily as directed. DX: 250.60 Insulin: Yes No current facility-administered medications for this visit. ALLERGIES No Known Allergies PAST SURGICAL HISTORY Procedure Laterality Date - COLONOSCOP W/ OR W/O BRSH SPEC 03/12/11 - DEBRIDE SKIN AND SUBQ TISSU 09-11-10 LEFT GROIN - DEBRIDEMENT OF SKIN, FULL THIC 09-12-10 LEFT GROIN - I AND D ABSCESS, SINGLE 09/08/10 IANDD abscess left groin - I AND D ABSCESS, SINGLE 10/23/10 IANDD medial to left groin wound - I AND D ABSCESS, SINGLE 01/22/11 IANDD LLQ superficial abscess - REM LESION TRUNK,ARM, LEG <0.5 CM 03/21/11 Exc. fibroepithelial polyp LLQ abd - REMOVAL DEVITAL TISSUE, ARTUR WND CHAPITO <20CM 11/22/10 Debridement posterior neck/IANDD LLQ abd - REVISION OF AORTIC VALVE 2005 Repair of Aortic Value/Thoracic anerusym repair Physical Exam: Constitutional: Pt is a well developed 72 year old male who is alert, oriented, cooperative and in no apparent distress. OBJECTIVE: Vascular: DP and PT pulses are palpable to right foot. cft is less than 5 seconds. Skin temperature is warm to warm. No erythema is noted. 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 There is hypergranular tissue exposed. There is probe to bone. No purulence is noted. Serous drainage is present to right foot. Musculoskeletal/Orthopaedic: Patient has no pain to palpation of right foot ASSESSMENT: (T81.30XA) Wound dehiscence (primary encounter diagnosis) (E11.621, L97.512) Diabetic ulcer of toe of right foot associated with type 2 diabetes mellitus, with fat layer exposed (Z98.890) Post-operative state PLAN: 1. History and physical examination completed today. 2. Patient was examined and informed of current findings 3. Discussed the presence of wound to right foot. He has tried wound vac, delayed closure. Despite conservative care, he continues to have wound dehiscence. I have discussed referral to wound clinic for hyperbarics and wound vac application. Patient has tried wound vac and had issues maintaining seal. Informed patient that we can retry the wound vac. Also discussed further bone resection. Given the fact bone is now palpable, it raises concern of ongoing infection. Further bone resection may allow us to close this wound. There is no guarantee that further bone resection will result in closure of wound. He would like to try this. Informed patient that if further bone is resected, transfer lesions is potential risk. He is not really interested in hyperbarics. He wants to try further bone resection. 4. I will have patient present to hospital. Will consult ID. Order MRI. Order cbc, esr, crp. Will check INR. Plan for further bone resection once INR acceptable for surgery. 5. Wound was debrided thru dermis, epidermis, subcutaneous tissue with tissue nippers. Bleeding present and controlled with pressure and silver nitrate. Arminda Obregon DPM PROGRESS Observed: 05/22/2018 Status: COMPLETED Source: [place] 9:00 AM [facility] REPOSITORY HNO ID: [id number] Author: Sweta Osborne MA Service: (none) Author Type: (none) Type: Progress Notes Filed: 05/22/2018 12:47 PM Note Text: AMB ROOMING INTAKE FLOWSHEET DATA Risk Screening Do you have concerns about personal safety or safety in the home?: No Patient is here for 1 wk f/u wound dehiscence R foot. Patient reports home blood glucose reading at 139 mg/dL this am. Patient denies pain. Visibly R foot is red, odor with seepage. Patient denies nausea, vomiting, chills and fever. Patient states changes dressing every day with aquacel, gauze then places a sock over foot. Patient is finished with his antibiotic. Sweta Osborne MA CNOV Observed: 05/22/2018 Status: COMPLETED Source: [place] 8:55 AM [facility] REPOSITORY Office Visit (PODIWS) RICHARD ROY ([id number]) 1945 M Date Time Provider Department 05/22/18 8:55 AM ARMINDA OBREGON During your visit today, we recorded the following information about you: Sweta Maciaszoey RODRIGUEZ 05/22/2018 12:47 PM Signed AMB ROOMING INTAKE FLOWSHEET DATA Risk Screening Do you have concerns about personal safety or safety in the home?: No Patient is here for 1 wk f/u wound dehiscence R foot. Patient reports home blood glucose reading at 139 mg/dL this am. Patient denies pain. Visibly R foot is red, odor with seepage. Patient denies nausea, vomiting, chills and fever. Patient states changes dressing every day with aquacel, gauze then places a sock over foot. Patient is finished with his antibiotic. Swetasa Dylon Obregon DPM 05/22/2018 12:47 PM Signed Follow up podiatric office visit for: Chief Complaint: This 72 year old who presents for follow up:wound dehiscence of right foot. Patient had attempted delayed closure 2 weeks ago and has been doing well. He has had nursing perform dressing changes daily. He denies n/v/f/c. He feels he is doing well. He has no other complaints. Prior to attempted delayed closure, he had been doing wound vac but had issues maintaining good seal. PAIN EVALUATION No data found. Hemoglobin A1C Date Value Ref Range Status 05/12/2018 6.5 (H) 4.3 - 5.6 % Final PCP: Dmitry Roberto III MD PAST MEDICAL HISTORY Diagnosis Date - Cholelithiasis 09/25/2013 - Diabetes mellitus with neurological manifestation (HCC) 09/08/2010 - Diverticulosis of colon (without mention of hemorrhage) - Encounter for monitoring Coumadin therapy 09/23/2013 INR goal 2.5-3.5 - Essential hypertension, benign 10/28/2012 - Hyperlipidemia LDL goal < 100 04/01/2012 - Pulmonary embolus, right (HCC) 09/25/2013 - Status post aortic valve repair 2004 - Thoracic aneurysm without mention of rupture - Type 2 diabetes mellitus with stage 3 chronic kidney disease, with long-term current use of insulin ([facility]LY [facility]) 06/20/2016 - Type II or unspecified type diabetes mellitus without mention of complication, not stated as uncontrolled Current Outpatient Prescriptions: insulin needles, DISPOSABLE, (BD INSULIN PEN NEEDLE UF) 31 gauge x 5/16 ndle 1 Each once daily. insulin needles, DISPOSABLE, (BD INSULIN PEN NEEDLE UF) 31 gauge x 5/16 ndle 1 Each four times daily. insulin glargine (LANTUS SOLOSTAR U-100 INSULIN) 100 unit/mL (3 mL) inpn Inject 22 Units subcutaneously daily at bedtime. insulin aspart U-100 (NOVOLOG FLEXPEN U-100 INSULIN) 100 unit/mL inpn Inject with meals according to sliding scale: 100-200=3 units, 201- 250=5 units, 251-300=8 units, 301-350=12 units, 351-400=15 units. metFORMIN ER (GLUCOPHAGE XR) 500 mg 24 hr tablet Take 2 tablets by mouth twice daily with meals. atorvastatin (LIPITOR) 10 mg tablet TAKE 1 TABLET BY MOUTH DAILY AT BEDTIME. FOR CHOLESTEROL. (Patient taking differently: Patient taking 40 mg daily) losartan (COZAAR) 50 mg tablet Take 1 tablet by mouth once daily. blood sugar diagnostic ([employer] ULTRA TEST) test strip Test blood sugar(s) 5 times daily. Dx: E11.49. Insulin: Yes warfarin (COUMADIN) 5 mg tablet TAKE 5mg on Sundays, 10 mg on ALL OTHER DAYS dulaglutide (TRULICITY) 1.5 mg/0.5 mL pnij Inject 1.5 mg subcutaneously once each week. Inject once per week. Discard Pen After metoprolol succinate ER (TOPROL XL) 200 mg 24 hr tablet TAKE 1 TABLET BY MOUTH ONCE DAILY. warfarin (COUMADIN) 5 mg tablet TAKE 1 TAB BY MOUTH ON SUNDAYS AND THURSDAYS, THEN TAKE 2 TABS BY MOUTH ONCE DAILY ON ALL OTHER DAYS aspirin, enteric coated (ASPIRIN LOW DOSE) 81 mg EC tablet Take 1 tablet by mouth once daily. Insulin Syringe-Needle U-100 (BD INSULIN SYRINGE UF II) 0.5 mL 31 gauge x 5/16 syrg Use 1 syringe for insulin injections five (5) times daily as directed. DX: 250.60 Insulin: Yes No current facility-administered medications for this visit. ALLERGIES No Known Allergies PAST SURGICAL HISTORY Procedure Laterality Date - COLONOSCOP W/ OR W/O BRSH SPEC 03/12/11 - DEBRIDE SKIN AND SUBQ TISSU 09-11-10 LEFT GROIN - DEBRIDEMENT OF SKIN, FULL THIC 09-12-10 LEFT GROIN - I AND D ABSCESS, SINGLE 09/08/10 IANDD abscess left groin - I AND D ABSCESS, SINGLE 10/23/10 IANDD medial to left groin wound - I AND D ABSCESS, SINGLE 01/22/11 IANDD LLQ superficial abscess - REM LESION TRUNK,ARM, LEG <0.5 CM 03/21/11 Exc. fibroepithelial polyp LLQ abd - REMOVAL DEVITAL TISSUE, ARTUR WND CHAPITO <20CM 11/22/10 Debridement posterior neck/IANDD LLQ abd - REVISION OF AORTIC VALVE 2005 Repair of Aortic Value/Thoracic anerusym repair Physical Exam: Constitutional: Pt is a well developed 72 year old male who is alert, oriented, cooperative and in no apparent distress. OBJECTIVE: Vascular: DP and PT pulses are palpable to right foot. cft is less than 5 seconds. Skin temperature is warm to warm. No erythema is noted. 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 There is hypergranular tissue exposed. There is probe to bone. No purulence is noted. Serous drainage is present to right foot. Musculoskeletal/Orthopaedic: Patient has no pain to palpation of right foot ASSESSMENT: (T81.30XA) Wound dehiscence (primary encounter diagnosis) (E11.621, L97.512) Diabetic ulcer of toe of right foot associated with type 2 diabetes mellitus, with fat layer exposed (Z98.890) Post-operative state PLAN: 1. History and physical examination completed today. 2. Patient was examined and informed of current findings 3. Discussed the presence of wound to right foot. He has tried wound vac, delayed closure. Despite conservative care, he continues to have wound dehiscence. I have discussed referral to wound clinic for hyperbarics and wound vac application. Patient has tried wound vac and had issues maintaining seal. Informed patient that we can retry the wound vac. Also discussed further bone resection. Given the fact bone is now palpable, it raises concern of ongoing infection. Further bone resection may allow us to close this wound. There is no guarantee that further bone resection will result in closure of wound. He would like to try this. Informed patient that if further bone is resected, transfer lesions is potential risk. He is not really interested in hyperbarics. He wants to try further bone resection. 4. I will have patient present to hospital. Will consult ID. Order MRI. Order cbc, esr, crp. Will check INR. Plan for further bone resection once INR acceptable for surgery. 5. Wound was debrided thru dermis, epidermis, subcutaneous tissue with tissue nippers. Bleeding present and controlled with pressure and silver nitrate. Arminda Obregon DPM Referring Provider: ARMINDA OBREGON [[id number]] Allergies As of Date: 05/22/2018 (No Known Allergies) Date Reviewed: 05/22/2018 Reviewed by: Sweta Obsorne MA - Fully Assessed Reason for Visit: Surgical Followup [104] Primary Visit Diagnosis:Wound dehiscence [T81.30XA] Other Visit Diagnoses:Diabetic ulcer of toe of right foot associated with type 2 diabetes mellitus, with fat layer exposed (HCC) [E11.621, L97.512] Post-operative state [Z98.890] Order(s):XR FOOT GENERAL 3V AP/LAT/OBL RT [[id number]] Order #: [id number] FUTURE CBC [SQCBC] Order #: [id number] FUTURE SED RATE WESTERGREN [SQWSR] Order #: [id number] FUTURE C-REACTIVE PROTEIN (CRP) [SQCRP] Order #: [id number] FUTURE Prescriptions as of 05/22/2018 Sig: PEN NEEDLE, DIABETIC 31 GAUGE* 1 Each once daily. PEN NEEDLE, DIABETIC 31 GAUGE* 1 Each four times daily. INSULIN GLARGINE (U-100) 100 * Inject 22 Units subcutaneousl* INSULIN ASPART U-100 100 UNI* Inject with meals according t* METFORMIN ER 500 MG TABLET,EX* Take 2 tablets by mouth twice* ATORVASTATIN 10 MG TABLET TAKE 1 TABLET BY MOUTH DAILY * Patient taking differently: Patient taking 40 mg daily LOSARTAN 50 MG TABLET Take 1 tablet by mouth once d* BLOOD SUGAR DIAGNOSTIC STRIPS Test blood sugar(s) 5 times d* WARFARIN 5 MG TABLET TAKE 5mg on Sundays, 10 mg on* DULAGLUTIDE 1.5 MG/0.5 ML SUB* Inject 1.5 mg subcutaneously * METOPROLOL SUCCINATE ER 200 M* TAKE 1 TABLET BY MOUTH ONCE D* WARFARIN 5 MG TABLET TAKE 1 TAB BY MOUTH ON SATURDAY* ASPIRIN 81 MG TABLET,DELAYED * Take 1 tablet by mouth once d* INSULIN SYRINGE-NEEDLE U-100 * Use 1 syringe for insulin inj* Problem List As Of Date 05/22/2018 Noted Resolved Sciatica [M54.30] INVALID FOR*06/20/2016 Diabetes mellitus with neurological manifestati*INVALID FOR* Abscess [L02.91] INVALID FOR*06/20/2016 Non-healing surgical wound [T81.89XA] INVALID FOR*06/20/2016 Cellulitis and abscess [L03.90, L02.91] INVALID FOR*06/20/2016 Skin lesion [L98.9] INVALID FOR*06/20/2016 Hyperlipidemia with target LDL less than 100 [E*INVALID FOR* Essential hypertension, benign [I10] INVALID FOR* Morbid obesity with BMI of 40.0-44.9, adult (HC*INVALID FOR*08/19/2017 Encounter for monitoring coumadin therapy [Z51.*INVALID FOR* More... Pulmonary embolus, right (HCC) [I26.99] INVALID FOR*08/19/2017 Callus of foot [L84] INVALID FOR* Tinea of nail [B35.1] INVALID FOR* Cholelithiasis [K80.20] INVALID FOR* S/P aortic valve replacement [Z95.2] INVALID FOR*06/20/2016 Status post aortic valve repair [Z98.890] INVALID FOR* Type 2 diabetes mellitus with stage 3 chronic k*INVALID FOR* Obesity, Class II, BMI 35-39.9 [E66.9] INVALID FOR* Chronic anticoagulation [Z79.01] INVALID FOR* Encounter Status:Closed by ARMINDA OBREGON DPM on 05/22/18 PROGRESS Observed: 05/13/2018 Status: COMPLETED Source: [place] 9:48 PM [facility] REPOSITORY O ID: [id number] Author: Arminda Obregon Service: (none) Author Type: Physician Type: Progress Notes Filed: 05/13/2018 9:58 PM Note Text: Follow up podiatric office visit for: Chief Complaint: This 72 year old who presents for follow up:right hallux amputation and subsequent wound dehiscence. Patient had wound closed last week and has been applying betadine and silvercel. He has completed antibiotic last week. He denies n/v/f/c. He wonders when he can start driving. PAIN EVALUATION No data found. Hemoglobin A1C Date Value Ref Range Status 05/12/2018 6.5 (H) 4.3 - 5.6 % Final PCP: Dmitry Roberto III MD PAST MEDICAL HISTORY Diagnosis Date - Cholelithiasis 09/25/2013 - Diabetes mellitus with neurological manifestation ([facility]) 09/08/2010 - Diverticulosis of colon (without mention of hemorrhage) - Encounter for monitoring Coumadin therapy 09/23/2013 INR goal 2.5-3.5 - Essential hypertension, benign 10/28/2012 - Hyperlipidemia LDL goal < 100 04/01/2012 - Pulmonary embolus, right ([facility]) 09/25/2013 - Status post aortic valve repair 2004 - Thoracic aneurysm without mention of rupture - Type 2 diabetes mellitus with stage 3 chronic kidney disease, with long-term current use of insulin ([facility]) 06/20/2016 - Type II or unspecified type diabetes mellitus without mention of complication, not stated as uncontrolled Current Outpatient Prescriptions: insulin glargine (LANTUS SOLOSTAR U-100 INSULIN) 100 unit/mL (3 mL) inpn Inject 22 Units subcutaneously daily at bedtime. insulin aspart U-100 (NOVOLOG FLEXPEN U-100 INSULIN) 100 unit/mL inpn Inject with meals according to sliding scale: 100-200=3 units, 201-250=5 units, 251-300=8 units, 301-350=12 units, 351-400=15 units. metFORMIN ER (GLUCOPHAGE XR) 500 mg 24 hr tablet Take 2 tablets by mouth twice daily with meals. losartan (COZAAR) 50 mg tablet Take 1 tablet by mouth once daily. blood sugar diagnostic ([employer] ULTRA TEST) test strip Test blood sugar(s) 5 times daily. Dx: E11.49. Insulin: Yes warfarin (COUMADIN) 5 mg tablet TAKE 5mg on Sundays, 10 mg on ALL OTHER DAYS dulaglutide (TRULICITY) 1.5 mg/0.5 mL pnij Inject 1.5 mg subcutaneously once each week. Inject once per week. Discard Pen After metoprolol succinate ER (TOPROL XL) 200 mg 24 hr tablet TAKE 1 TABLET BY MOUTH ONCE DAILY. warfarin (COUMADIN) 5 mg tablet TAKE 1 TAB BY MOUTH ON SUNDAYS AND THURSDAYS, THEN TAKE 2 TABS BY MOUTH ONCE DAILY ON ALL OTHER DAYS aspirin, enteric coated (ASPIRIN LOW DOSE) 81 mg EC tablet Take 1 tablet by mouth once daily. Insulin Syringe-Needle U-100 (BD INSULIN SYRINGE UF II) 0.5 mL 31 gauge x 5/16 syrg Use 1 syringe for insulin injections five (5) times daily as directed. DX: 250.60 Insulin: Yes insulin needles, DISPOSABLE, (BD INSULIN PEN NEEDLE UF) 31 gauge x 5/16 ndle 1 Each once daily. insulin needles, DISPOSABLE, (BD INSULIN PEN NEEDLE UF) 31 gauge x 5/16 ndle 1 Each four times daily. atorvastatin (LIPITOR) 10 mg tablet TAKE 1 TABLET BY MOUTH DAILY AT BEDTIME. FOR CHOLESTEROL. (Patient taking differently: Patient taking 40 mg daily) No current facility-administered medications for this visit. ALLERGIES No Known Allergies PAST SURGICAL HISTORY Procedure Laterality Date - COLONOSCOP W/ OR W/O BRSH SPEC 03/12/11 - DEBRIDE SKIN AND SUBQ TISSU 09-11-10 LEFT GROIN - DEBRIDEMENT OF SKIN, FULL THIC 09-12-10 LEFT GROIN - I AND D ABSCESS, SINGLE 09/08/10 IANDD abscess left groin - I AND D ABSCESS, SINGLE 10/23/10 IANDD medial to left groin wound - I AND D ABSCESS, SINGLE 01/22/11 IANDD LLQ superficial abscess - REM LESION TRUNK,ARM, LEG <0.5 CM 03/21/11 Exc. fibroepithelial polyp LLQ abd - REMOVAL DEVITAL TISSUE, ARTUR WND CHAPITO <20CM 11/22/10 Debridement posterior neck/IANDD LLQ abd - REVISION OF AORTIC VALVE 2005 Repair of Aortic Value/Thoracic anerusym repair Physical Exam: Constitutional: Pt is a well developed 72 year old male who is alert, oriented, cooperative and in no apparent distress. OBJECTIVE: NVSI unchanged from previous visit. Dermatological: Right first ray amputation with past wound dehiscence approximated with suture. There is one area of superficial opening but no deep dehiscence. No exposed tendon or bone. No drainage is noted. No redness or local signs of infection No fluctuance is noted. Musculoskeletal/Orthopaedic: Patient has no pain to palpation of right foot xrays of right foot reviewed. No subcutaneous gas noted. No erosive changes to suggest osteomyelitis. There is small defect on ap view of medial 1st metatarsal that shows irregularity but this is noted to be site of bone biopsy. ASSESSMENT: (T81.30XA) Wound dehiscence (primary encounter diagnosis) (Z98.890) Post-operative state PLAN: 1. History and physical examination completed today. 2. Patient was examined and informed of current findings. His wound dehiscence of right foot does appear to be healing nicely without deep dehiscence. I want patient to continue with surgical shoe and silvercel to wound. If patient has no other means of transportation, he can wear diabetic shoes only for driving puruposes. 3. Reviewed xrays. xrays do show a small area of cortical disruption only on ap view but this is site of bone biopsy. I will order cbc, esr, crp. 4. F/u in 1 week. Hopefully wound dehiscence will be healed and suture can be removed. 5. Pending blood work, may have patient see ID Arminda Obregon DPM PROGRESS Observed: 05/13/2018 Status: COMPLETED Source: [place] 3:03 PM [facility] REPOSITORY HNO ID: [id number] Author: Dmitry Roberto III Service: (none) Author Type: Physician Type: Progress Notes Filed: 05/13/2018 6:37 PM Note Text: SUBJECTIVE: This is a 72 year old male that is here today for 1. f/u of parenteral tx of osteomyelitis. He had a sore on his right great toe resulting in amputation of the toe. He did see his seismometer operator Dr. Obregon this AM. In residential for 6 wks. Finished all antibiotics on 05/07. Home from [place] on 05/08. Doing well. Records from infectious disease progress report, labs from 05/07/18 showing WBC 9.5 and sedimentation rate 17, and operative report reviewed with patient and 2. diabetes mellitus with periph. neuropathy--checking home glu QID. 167, 189, 169, Good diet. Virtually no exercise because of recent foot surgery 3. hypertension: tolerates medication well 4 hyperlipidemia: tolerates medication well PAST MEDICAL HISTORY Diagnosis Date - Cholelithiasis 09/25/2013 - Diabetes mellitus with neurological manifestation (HCC) 09/08/2010 - Diverticulosis of colon (without mention of hemorrhage) - Encounter for monitoring Coumadin therapy 09/23/2013 INR goal 2.5-3.5 - Essential hypertension, benign 10/28/2012 - Hyperlipidemia LDL goal < 100 04/01/2012 - Pulmonary embolus, right (HCC) 09/25/2013 - Status post aortic valve repair 2004 - Thoracic aneurysm without mention of rupture - Type 2 diabetes mellitus with stage 3 chronic kidney disease, with long-term current use of insulin (HCC) 06/20/2016 - Type II or unspecified type diabetes mellitus without mention of complication, not stated as uncontrolled Current Outpatient Prescriptions on File Prior to Visit: insulin glargine (LANTUS SOLOSTAR U-100 INSULIN) 100 unit/mL (3 mL) inpn Inject 22 Units subcutaneously daily at bedtime. insulin aspart U-100 (NOVOLOG FLEXPEN U-100 INSULIN) 100 unit/mL inpn Inject with meals according to sliding scale: 100-200=3 units, 201-250=5 units, 251-300=8 units, 301-350=12 units, 351-400=15 units. metFORMIN ER (GLUCOPHAGE XR) 500 mg 24 hr tablet Take 2 tablets by mouth twice daily with meals. atorvastatin (LIPITOR) 10 mg tablet TAKE 1 TABLET BY MOUTH DAILY AT BEDTIME. FOR CHOLESTEROL. (Patient taking differently: Patient taking 40 mg daily) losartan (COZAAR) 50 mg tablet Take 1 tablet by mouth once daily. blood sugar diagnostic ([employer] ULTRA TEST) test strip Test blood sugar(s) 5 times daily. Dx: E11.49. Insulin: Yes warfarin (COUMADIN) 5 mg tablet TAKE 5mg on Sundays, 10 mg on ALL OTHER DAYS dulaglutide (TRULICITY) 1.5 mg/0.5 mL pnij Inject 1.5 mg subcutaneously once each week. Inject once per week. Discard Pen After metoprolol succinate ER (TOPROL XL) 200 mg 24 hr tablet TAKE 1 TABLET BY MOUTH ONCE DAILY. warfarin (COUMADIN) 5 mg tablet TAKE 1 TAB BY MOUTH ON SUNDAYS AND THURSDAYS, THEN TAKE 2 TABS BY MOUTH ONCE DAILY ON ALL OTHER DAYS aspirin, enteric coated (ASPIRIN LOW DOSE) 81 mg EC tablet Take 1 tablet by mouth once daily. Insulin Syringe-Needle U-100 (BD INSULIN SYRINGE UF II) 0.5 mL 31 gauge x 5/16 syrg Use 1 syringe for insulin injections five (5) times daily as directed. DX: 250.60 Insulin: Yes No current facility-administered medications on file prior to visit. FAMILY HISTORY Problem Relation Age of Onset - Heart Father Bypass and valve replaced - None Mother - Breast Cancer Sister - None Brother Social History Substance Use Topics - Smoking status: Never Smoker - Smokeless tobacco: Former User - Alcohol use No BP 140/75 Pulse 85 Resp 16 Wt 120.7 kg (266 lb) BMI 35.09 kg/m? . OBJECTIVE: APPEARANCE Well appearing, alert, in no acute distress, well-hydrated, well nourished. EXTREMITIES very clean wound at the distal first metatarsal of the right foot. Status post CABG patient of the right great toe. Good color and warmth of the right foot. No significant discharge from the wound. Dressing was changed. No pedal edema and palpable R dorsal pedal pulse Lab Results for RICHARD ROY ( ) as of 05/13/2018 15:27 Ref. Range 05/12/2018 08:57 05/12/2018 08:58 Sodium Latest Ref Range: 136 - 144 mmol/L 139 Potassium Latest Ref Range: 3.7 - 5.1 mmol/L 4.3 Chloride Latest Ref Range: 97 - 105 mmol/L 101 CO2 Latest Ref Range: 22 - 30 mmol/L 27 BUN Latest Ref Range: 7 - 21 mg/dL 22 (H) Creatinine Latest Ref Range: 0.73 - 1.22 mg/dL 1.05 Glucose Latest Ref Range: 74 - 99 mg/dL 182 (H) Calcium Latest Ref Range: 8.5 - 10.2 mg/dL 10.0 Anion Gap Latest Ref Range: 9 - 18 mmol/L 11 eGFR- Unknown >60 eGFR-All Other Races Latest Units: . >60 Hemoglobin A1C Latest Ref Range: 4.3 - 5.6 % 6.5 (H) Estimated Average Glucose Latest Units: mg/dL 140 PT Sec Latest Ref Range: 9.7 - 13.0 sec 11.7 PT INR Latest Ref Range: 0.9 - 1.3 1.1 ASSESSMENT: diabetes mellitus II-fair control osteomyelitis R great toe--resolved hypertension--at goal hyperlipidemia PLAN: same medications good diet follow up with specialists as appointed return to office 6 mos with labs Dmitry Roberto III MD CNOV Observed: 05/13/2018 Status: COMPLETED Source: [place] 3:00 PM [facility] [place] REPOSITORY Office Visit (FAMPWS) RICHARD ROY ([id number]) 1945 M Date Time Provider Department 05/13/18 3:00 PM DMITRY ROBERTO III During your visit today, we recorded the following information about you: Pulse Respiration Blood pressure Weight 85/minute 16/minute 140/75 120.7 kg Dmitry Roberto III MD 05/13/2018 6:37 PM Signed SUBJECTIVE: This is a 72 year old male that is here today for 1. f/u of parenteral tx of osteomyelitis. He had a sore on his right great toe resulting in amputation of the toe. He did see his seismometer operator Dr. Obregon this AM. In residential for 6 wks. Finished all antibiotics on 05/07. Home from [place] on 05/08. Doing well. Records from infectious disease progress report, labs from 05/07/18 showing WBC 9.5 and sedimentation rate 17, and operative report reviewed with patient and 2. diabetes mellitus with periph. neuropathy--checking home glu QID. 167, 189, 169, Good diet. Virtually no exercise because of recent foot surgery 3. hypertension: tolerates medication well 4 hyperlipidemia: tolerates medication well PAST MEDICAL HISTORY Diagnosis Date - Cholelithiasis 09/25/2013 - Diabetes mellitus with neurological manifestation ([facility]) 09/08/2010 - Diverticulosis of colon (without mention of hemorrhage) - Encounter for monitoring Coumadin therapy 09/23/2013 INR goal 2.5-3.5 - Essential hypertension, benign 10/28/2012 - Hyperlipidemia LDL goal < 100 04/01/2012 - Pulmonary embolus, right ([facility]) 09/25/2013 - Status post aortic valve repair 2004 - Thoracic aneurysm without mention of rupture - Type 2 diabetes mellitus with stage 3 chronic kidney disease, with long-term current use of insulin ([facility]) 06/20/2016 - Type II or unspecified type diabetes mellitus without mention of complication, not stated as uncontrolled Current Outpatient Prescriptions on File Prior to Visit: insulin glargine (LANTUS SOLOSTAR U-100 INSULIN) 100 unit/mL (3 mL) inpn Inject 22 Units subcutaneously daily at bedtime. insulin aspart U-100 (NOVOLOG FLEXPEN U-100 INSULIN) 100 unit/mL inpn Inject with meals according to sliding scale: 100-200=3 units, 201- 250=5 units, 251-300=8 units, 301-350=12 units, 351-400=15 units. metFORMIN ER (GLUCOPHAGE XR) 500 mg 24 hr tablet Take 2 tablets by mouth twice daily with meals. atorvastatin (LIPITOR) 10 mg tablet TAKE 1 TABLET BY MOUTH DAILY AT BEDTIME. FOR CHOLESTEROL. (Patient taking differently: Patient taking 40 mg daily) losartan (COZAAR) 50 mg tablet Take 1 tablet by mouth once daily. blood sugar diagnostic ([employer]) ULTRA TEST) test strip Test blood sugar(s) 5 times daily. Dx: E11.49. Insulin: Yes warfarin (COUMADIN) 5 mg tablet TAKE 5mg on Sundays, 10 mg on ALL OTHER DAYS dulaglutide (TRULICITY) 1.5 mg/0.5 mL pnij Inject 1.5 mg subcutaneously once each week. Inject once per week. Discard Pen After metoprolol succinate ER (TOPROL XL) 200 mg 24 hr tablet TAKE 1 TABLET BY MOUTH ONCE DAILY. warfarin (COUMADIN) 5 mg tablet TAKE 1 TAB BY MOUTH ON SUNDAYS AND THURSDAYS, THEN TAKE 2 TABS BY MOUTH ONCE DAILY ON ALL OTHER DAYS aspirin, enteric coated (ASPIRIN LOW DOSE) 81 mg EC tablet Take 1 tablet by mouth once daily. Insulin Syringe-Needle U-100 (BD INSULIN SYRINGE UF II) 0.5 mL 31 gauge x 5/16 syrg Use 1 syringe for insulin injections five (5) times daily as directed. DX: 250.60 Insulin: Yes No current facility-administered medications on file prior to visit. FAMILY HISTORY Problem Relation Age of Onset - Heart Father Bypass and valve replaced - None Mother - Breast Cancer Sister - None Brother Social History Substance Use Topics - Smoking status: Never Smoker - Smokeless tobacco: Former User - Alcohol use No BP 140/75 Pulse 85 Resp 16 Wt 120.7 kg (266 lb) BMI 35.09 kg/m? . OBJECTIVE: APPEARANCE Well appearing, alert, in no acute distress, well- hydrated, well nourished. EXTREMITIES very clean wound at the distal first metatarsal of the right foot. Status post CABG patient of the right great toe. Good color and warmth of the right foot. No significant discharge from the wound. Dressing was changed. No pedal edema and palpable R dorsal pedal pulse Lab Results for RICHARD ROY ( ) as of 05/13/2018 15:27 Ref. Range 05/12/2018 08:57 05/12/2018 08:58 Sodium Latest Ref Range: 136 - 144 mmol/L 139 Potassium Latest Ref Range: 3.7 - 5.1 mmol/L 4.3 Chloride Latest Ref Range: 97 - 105 mmol/L 101 CO2 Latest Ref Range: 22 - 30 mmol/L 27 BUN Latest Ref Range: 7 - 21 mg/dL 22 (H) Creatinine Latest Ref Range: 0.73 - 1.22 mg/dL 1.05 Glucose Latest Ref Range: 74 - 99 mg/dL 182 (H) Calcium Latest Ref Range: 8.5 - 10.2 mg/dL 10.0 Anion Gap Latest Ref Range: 9 - 18 mmol/L 11 eGFR- Unknown >60 eGFR-All Other Races Latest Units: . >60 Hemoglobin A1C Latest Ref Range: 4.3 - 5.6 % 6.5 (H) Estimated Average Glucose Latest Units: mg/dL 140 PT Sec Latest Ref Range: 9.7 - 13.0 sec 11.7 PT INR Latest Ref Range: 0.9 - 1.3 1.1 ASSESSMENT: diabetes mellitus II-fair control osteomyelitis R great toe--resolved hypertension--at goal hyperlipidemia PLAN: same medications good diet follow up with specialists as appointed return to office 6 mos with labs DOMINGO Lucio MD, III MD 05/13/2018 3:30 PM Signed PLAN: same medications good diet follow up with specialists as appointed return to office 6 mos with labs Dmitry Roberto III MD Referring Provider: SELF [[id number]] Allergies As of Date: 05/13/2018 (No Known Allergies) Date Reviewed: 05/13/2018 Reviewed by: Annette ([facility]) JENNIFER Garnett - Fully Assessed Reason for Visit: [facility] follow up [Other] Cmt: big toe removed due to infection Primary Visit Diagnosis:Hospital discharge follow-up [Z09] Other Visit Diagnoses:Type 2 diabetes mellitus with diabetic neuropathy, with long-term current use of insulin (HCC) [E11.40, Z79.4] Hyperlipidemia with target LDL less than 100 [E78.5] Essential hypertension, benign [I10] Order(s):insulin needles, DISPOSABLE, (BD INSULIN PEN NEEDLE UF) 31 gauge x 5/16 ndle1 Each once daily.Disp: 90 EachRfl: 11 insulin needles, DISPOSABLE, (BD INSULIN PEN NEEDLE UF) 31 gauge x 5/16 ndle1 Each four times daily.Disp: 100 EachRfl: 11 ALBUMIN/CREAT RATIO RND UR [SQUACR] Order #: [id number] FUTURE HGB A1C [PBXOK6M] Order #: [id number] FUTURE LIPID PANEL BASIC [SQLIPB] Order #: [id number] FUTURE COMP METABOLIC PANEL [SQCMP] Order #: [id number] FUTURE Prescriptions as of 05/13/2018 Sig: INSULIN GLARGINE (U-100) 100 * Inject 22 Units subcutaneousl* INSULIN ASPART U-100 100 UNI* Inject with meals according t* METFORMIN ER 500 MG TABLET,EX* Take 2 tablets by mouth twice* ATORVASTATIN 10 MG TABLET TAKE 1 TABLET BY MOUTH DAILY * Patient taking differently: Patient taking 40 mg daily LOSARTAN 50 MG TABLET Take 1 tablet by mouth once d* BLOOD SUGAR DIAGNOSTIC STRIPS Test blood sugar(s) 5 times d* WARFARIN 5 MG TABLET TAKE 5mg on Sundays, 10 mg on* DULAGLUTIDE 1.5 MG/0.5 ML SUB* Inject 1.5 mg subcutaneously * METOPROLOL SUCCINATE ER 200 M* TAKE 1 TABLET BY MOUTH ONCE D* WARFARIN 5 MG TABLET TAKE 1 TAB BY MOUTH ON SATURDAY* ASPIRIN 81 MG TABLET,DELAYED * Take 1 tablet by mouth once d* INSULIN SYRINGE-NEEDLE U-100 * Use 1 syringe for insulin inj* PEN NEEDLE, DIABETIC 31 GAUGE* 1 Each once daily. PEN NEEDLE, DIABETIC 31 GAUGE* 1 Each four times daily. Problem List As Of Date 05/13/2018 Noted Resolved Sciatica [M54.30] INVALID FOR*06/20/2016 Diabetes mellitus with neurological manifestati*INVALID FOR* Abscess [L02.91] INVALID FOR*06/20/2016 Non-healing surgical wound [T81.89XA] INVALID FOR*06/20/2016 Cellulitis and abscess [L03.90, L02.91] INVALID FOR*06/20/2016 Skin lesion [L98.9] INVALID FOR*06/20/2016 Hyperlipidemia with target LDL less than 100 [E*INVALID FOR* Essential hypertension, benign [I10] INVALID FOR* Morbid obesity with BMI of 40.0-44.9, adult (HC*INVALID FOR*08/19/2017 Encounter for monitoring coumadin therapy [Z51.*INVALID FOR* More... Pulmonary embolus, right (HCC) [I26.99] INVALID FOR*08/19/2017 Callus of foot [L84] INVALID FOR* Tinea of nail [B35.1] INVALID FOR* Cholelithiasis [K80.20] INVALID FOR* S/P aortic valve replacement [Z95.2] INVALID FOR*06/20/2016 Status post aortic valve repair [Z98.890] INVALID FOR* Type 2 diabetes mellitus with stage 3 chronic k*INVALID FOR* Obesity, Class II, BMI 35-39.9 [E66.9] INVALID FOR* Chronic anticoagulation [Z79.01] INVALID FOR* Other instructions from your clinician: PLAN: same medications good diet follow up with specialists as appointed return to office 6 mos with labs Dmitry Roberto III MD Prescriptions ordered this encounter Disp Refills Start End PEN NEEDLE, DIABETIC 31 GAUGE X 5/16 90 E* 11 05/13/2018 Route: Misc Si Each once daily. PEN NEEDLE, DIABETIC 31 GAUGE X 5/16 100 * 11 05/13/2018 Route: Misc Si Each four times daily. Medications Discontinued During This Encounter collagenase (SANTYL) ointment 30 g 3 03/06/2018 05/13/2018 Route: TOPICAL Sig: Apply 1 application to affected area once daily. Patient not taking: Reported on 05/13/2018 Disc: Course of therapy completed chlorthalidone (HYGROTON) 25 mg tabl* 90 t* 3 10/14/2017 05/13/2018 Sig: TAKE 1 TABLET BY MOUTH ONCE DAILY. Patient not taking: Reported on 04/10/2018 Disc: Course of therapy completed pioglitazone (ACTOS) 30 mg tablet 30 t* 11 08/19/2017 05/13/2018 Route: ORAL Sig: Take 1 tablet by mouth once daily. Patient not taking: Reported on 04/10/2018 Disc: Course of therapy completed melatonin 10 mg tab 05/13/2018 Class: Historical Med Route: ORAL Sig: Take 10 mg by mouth at bedtime as needed. Disc: Discontinued by Patient Encounter Status:Closed by DMITRY ROBERTO III, MD on 05/13/18 CBC Collected: 05/13/2018 Status: F Source: [place] 11:24 AM [facility] REPOSITORY TYPE CODE TESTS RESULT OUT OF REFERENCE UNITS RANGE LAB WBC 3.70-11.00 k/uL WBC High 11.59 LAB RBC 4.20-6.00 m/uL RBC 4.52 LAB HGB 13.0-17.0 g/dL Low Hemoglobin 12.3 LAB HCT 39.0-51.0 % Hematocrit 39.1 LAB MCV 80.0-100.0 fL MCV 86.5 LAB MCH 26.0-34.0 pG MCH 27.2 LAB MCHC 30.5-36.0 g/dL MCHC 31.5 LAB RDWCV 11.5-15.0 % RDW-CV 14.1 LAB PLTCT 150-400 k/uL Platelet Count 296 LAB MPV 9.0-12.7 fL MPV 10.0 LAB ABSNUC <0.01 k/uL Absolute nRBC <0.01 Performed By: #### CBC, WSR, CRP #### [facility] [employer] [address] [place], [place] [address] SED RATE WESTERGREN Collected: 05/13/2018 Status: F Source: [place] 11:24 AM [facility] REPOSITORY TYPE CODE TESTS RESULT OUT OF REFERENCE UNITS RANGE LAB WSR 0-15 mm/hr Sed Rate High Westergren 21 Performed By: #### CBC, WSR, CRP #### [facility] [employer] [address] [place], [place] [address] C-REACTIVE PROTEIN Collected: 05/13/2018 Status: F Source: [place] 11:24 AM [facility] REPOSITORY TYPE CODE TESTS RESULT OUT OF REFERENCE UNITS RANGE LAB CRP <0.9 mg/dL C-Reactive 0.2 Protein Performed By: #### CBC, WSR, CRP #### [facility] [address] [place], [place] [address] CNOV Observed: 05/13/2018 Status: COMPLETED Source: [place] 10:25 AM [facility] REPOSITORY Office Visit (PODIWS) RICHARD ROY ([id number]) 1945 M Date Time Provider Department 05/13/18 10:25 AM ARMINDA OBREGON PODIWS During your visit today, we recorded the following information about you: Blaire De La Torre RN 05/13/2018 9:58 PM Signed AMB ROOMING INTAKE FLOWSHEET DATA Risk Screening Do you have concerns about personal safety or safety in the home?: No Patient presents s/p R hallux amputation. He is also 1 wk post closure of wound dehiscence, R. Upon removal of dressing sutures remain intact, visible bloody drainage present to dressing. Pt denies n/v/f/c and pain. He was discharged from SNF on , 05/08. His is doing wound care at home. She confirms that she is applying betadine and Aquacel daily to surgical site. Pt also continues to wear post op shoe on R foot. Blaire De La Torre RN 05/13/2018 11:07 AM Signed Apply Aquacel to R foot daily. Continue post op shoe on R foot. Labs today. Arminda Obregon DPM 05/13/2018 9:58 PM Signed Follow up podiatric office visit for: Chief Complaint: This 72 year old who presents for follow up:right hallux amputation and subsequent wound dehiscence. Patient had wound closed last week and has been applying betadine and silvercel. He has completed antibiotic last week. He denies n/v/f/c. He wonders when he can start driving. PAIN EVALUATION No data found. Hemoglobin A1C Date Value Ref Range Status 05/12/2018 6.5 (H) 4.3 - 5.6 % Final PCP: Dmitry Roberto, III PAST MEDICAL HISTORY Diagnosis Date - Cholelithiasis 09/25/2013 - Diabetes mellitus with neurological manifestation (HCC) 09/08/2010 - Diverticulosis of colon (without mention of hemorrhage) - Encounter for monitoring Coumadin therapy 09/23/2013 INR goal 2.5-3.5 - Essential hypertension, benign 10/28/2012 - Hyperlipidemia LDL goal < 100 04/01/2012 - Pulmonary embolus, right (HCC) 09/25/2013 - Status post aortic valve repair 2004 - Thoracic aneurysm without mention of rupture - Type 2 diabetes mellitus with stage 3 chronic kidney disease, with long-term current use of insulin ([facility]) 06/20/2016 - Type II or unspecified type diabetes mellitus without mention of complication, not stated as uncontrolled Current Outpatient Prescriptions: insulin glargine (LANTUS SOLOSTAR U-100 INSULIN) 100 unit/mL (3 mL) inpn Inject 22 Units subcutaneously daily at bedtime. insulin aspart U-100 (NOVOLOG FLEXPEN U-100 INSULIN) 100 unit/mL inpn Inject with meals according to sliding scale: 100-200=3 units, 201- 250=5 units, 251-300=8 units, 301-350=12 units, 351-400=15 units. metFORMIN ER (GLUCOPHAGE XR) 500 mg 24 hr tablet Take 2 tablets by mouth twice daily with meals. losartan (COZAAR) 50 mg tablet Take 1 tablet by mouth once daily. blood sugar diagnostic ([employer] ULTRA TEST) test strip Test blood sugar(s) 5 times daily. Dx: E11.49. Insulin: Yes warfarin (COUMADIN) 5 mg tablet TAKE 5mg on Sundays, 10 mg on ALL OTHER DAYS dulaglutide (TRULICITY) 1.5 mg/0.5 mL pnij Inject 1.5 mg subcutaneously once each week. Inject once per week. Discard Pen After metoprolol succinate ER (TOPROL XL) 200 mg 24 hr tablet TAKE 1 TABLET BY MOUTH ONCE DAILY. warfarin (COUMADIN) 5 mg tablet TAKE 1 TAB BY MOUTH ON SUNDAYS AND THURSDAYS, THEN TAKE 2 TABS BY MOUTH ONCE DAILY ON ALL OTHER DAYS aspirin, enteric coated (ASPIRIN LOW DOSE) 81 mg EC tablet Take 1 tablet by mouth once daily. Insulin Syringe-Needle U-100 (BD INSULIN SYRINGE UF II) 0.5 mL 31 gauge x 5/16 syrg Use 1 syringe for insulin injections five (5) times daily as directed. DX: 250.60 Insulin: Yes insulin needles, DISPOSABLE, (BD INSULIN PEN NEEDLE UF) 31 gauge x 5/16 ndle 1 Each once daily. insulin needles, DISPOSABLE, (BD INSULIN PEN NEEDLE UF) 31 gauge x 5/16 ndle 1 Each four times daily. atorvastatin (LIPITOR) 10 mg tablet TAKE 1 TABLET BY MOUTH DAILY AT BEDTIME. FOR CHOLESTEROL. (Patient taking differently: Patient taking 40 mg daily) No current facility-administered medications for this visit. ALLERGIES No Known Allergies PAST SURGICAL HISTORY Procedure Laterality Date - COLONOSCOP W/ OR W/O BRSH SPEC 03/12/11 - DEBRIDE SKIN AND SUBQ TISSU 09-11-10 LEFT GROIN - DEBRIDEMENT OF SKIN, FULL THIC 09-12-10 LEFT GROIN - I AND D ABSCESS, SINGLE 09/08/10 IANDD abscess left groin - I AND D ABSCESS, SINGLE 10/23/10 IANDD medial to left groin wound - I AND D ABSCESS, SINGLE 01/22/11 IANDD LLQ superficial abscess - REM LESION TRUNK,ARM, LEG <0.5 CM 03/21/11 Exc. fibroepithelial polyp LLQ abd - REMOVAL DEVITAL TISSUE, ARTUR WND CHAPITO <20CM 11/22/10 Debridement posterior neck/IANDD LLQ abd - REVISION OF AORTIC VALVE 2004 Repair of Aortic Value/Thoracic anerusym repair Physical Exam: Constitutional: Pt is a well developed 72 year old male who is alert, oriented, cooperative and in no apparent distress. OBJECTIVE: NVSI unchanged from previous visit. Dermatological: Right first ray amputation with past wound dehiscence approximated with suture. There is one area of superficial opening but no deep dehiscence. No exposed tendon or bone. No drainage is noted. No redness or local signs of infection No fluctuance is noted. Musculoskeletal/Orthopaedic: Patient has no pain to palpation of right foot xrays of right foot reviewed. No subcutaneous gas noted. No erosive changes to suggest osteomyelitis. There is small defect on ap view of medial 1st metatarsal that shows irregularity but this is noted to be site of bone biopsy. ASSESSMENT: (T81.30XA) Wound dehiscence (primary encounter diagnosis) (Z98.890) Post-operative state PLAN: 1. History and physical examination completed today. 2. Patient was examined and informed of current findings. His wound dehiscence of right foot does appear to be healing nicely without deep dehiscence. I want patient to continue with surgical shoe and silvercel to wound. If patient has no other means of transportation, he can wear diabetic shoes only for driving puruposes. 3. Reviewed xrays. xrays do show a small area of cortical disruption only on ap view but this is site of bone biopsy. I will order cbc, esr, crp. 4. F/u in 1 week. Hopefully wound dehiscence will be healed and suture can be removed. 5. Pending blood work, may have patient see ID Arminda Obregon DPM Referring Provider: ARMINDA OBREGON [[id number]] Allergies As of Date: 05/13/2018 (No Known Allergies) Date Reviewed: 05/13/2018 Reviewed by: Annette ([facility]) JENNIFER Garnett - Fully Assessed Reason for Visit: Follow Up [171] Primary Visit Diagnosis:Wound dehiscence [T81.30XA] Other Visit Diagnosis:Post-operative state [Z98.890] Order(s):SED RATE WESTERGREN [SQWSR] Order #: [id number] FUTURE C-REACTIVE PROTEIN (CRP) [SQCRP] Order #: [id number] FUTURE CBC [SQCBC] Order #: [id number] FUTURE Prescriptions as of 05/13/2018 Sig: INSULIN GLARGINE (U-100) 100 * Inject 22 Units subcutaneousl* INSULIN ASPART U-100 100 UNI* Inject with meals according t* X MELATONIN 10 MG TABLET Take 10 mg by mouth at bedtim* X COLLAGENASE CLOSTRIDIUM HISTO* Apply 1 application to affect* Patient not taking: Reported on 05/13/2018 METFORMIN ER 500 MG TABLET,EX* Take 2 tablets by mouth twice* LOSARTAN 50 MG TABLET Take 1 tablet by mouth once d* BLOOD SUGAR DIAGNOSTIC STRIPS Test blood sugar(s) 5 times d* WARFARIN 5 MG TABLET TAKE 5mg on Sundays, 10 mg on* DULAGLUTIDE 1.5 MG/0.5 ML SUB* Inject 1.5 mg subcutaneously * METOPROLOL SUCCINATE ER 200 M* TAKE 1 TABLET BY MOUTH ONCE D* WARFARIN 5 MG TABLET TAKE 1 TAB BY MOUTH ON SATURDAY* ASPIRIN 81 MG TABLET,DELAYED * Take 1 tablet by mouth once d* INSULIN SYRINGE-NEEDLE U-100 * Use 1 syringe for insulin inj* ATORVASTATIN 10 MG TABLET TAKE 1 TABLET BY MOUTH DAILY * Patient taking differently: Patient taking 40 mg daily X CHLORTHALIDONE 25 MG TABLET TAKE 1 TABLET BY MOUTH ONCE D* Patient not taking: Reported on 04/10/2018 X PIOGLITAZONE 30 MG TABLET Take 1 tablet by mouth once d* Patient not taking: Reported on 04/10/2018 Problem List As Of Date 05/13/2018 Noted Resolved Sciatica [M54.30] INVALID FOR*06/20/2016 Diabetes mellitus with neurological manifestati*INVALID FOR* Abscess [L02.91] INVALID FOR*06/20/2016 Non-healing surgical wound [T81.89XA] INVALID FOR*06/20/2016 Cellulitis and abscess [L03.90, L02.91] INVALID FOR*06/20/2016 Skin lesion [L98.9] INVALID FOR*06/20/2016 Hyperlipidemia with target LDL less than 100 [E*INVALID FOR* Essential hypertension, benign [I10] INVALID FOR* Morbid obesity with BMI of 40.0-44.9, adult (HC*INVALID FOR*08/19/2017 Encounter for monitoring coumadin therapy [Z51.*INVALID FOR* More... Pulmonary embolus, right (HCC) [I26.99] INVALID FOR*08/19/2017 Callus of foot [L84] INVALID FOR* Tinea of nail [B35.1] INVALID FOR* Cholelithiasis [K80.20] INVALID FOR* S/P aortic valve replacement [Z95.2] INVALID FOR*06/20/2016 Status post aortic valve repair [Z98.890] INVALID FOR* Type 2 diabetes mellitus with stage 3 chronic k*INVALID FOR* Obesity, Class II, BMI 35-39.9 [E66.9] INVALID FOR* Chronic anticoagulation [Z79.01] INVALID FOR* Other instructions from your clinician: Apply Aquacel to R foot daily. Continue post op shoe on R foot. Labs today. Disposition: Return in about 1 week (around 05/20/2018) for post op. Follow-up and Disposition History Recorded Encounter Status:Closed by ARMINDA OBREGON DPM on 05/13/18 PROGRESS Observed: 05/13/2018 Status: COMPLETED Source: [place] 10:19 AM [facility] [place] REPOSITORY O ID: [id number] Author: Blaire De La Torre RN Service: (none) Author Type: (none) Type: Progress Notes Filed: 05/13/2018 9:58 PM Note Text: AMB ROOMING INTAKE FLOWSHEET DATA Risk Screening Do you have concerns about personal safety or safety in the home?: No Patient presents s/p R hallux amputation. He is also 1 wk post closure of wound dehiscence, R. Upon removal of dressing sutures remain intact, visible bloody drainage present to dressing. Pt denies n/v/f/c and pain. He was discharged from SNF on , 05/08. His is doing wound care at home. She confirms that she is applying betadine and Aquacel daily to surgical site. Pt also continues to wear post op shoe on R foot. PROGRESS Observed: 05/13/2018 Status: COMPLETED Source: [place] 9:56 AM [facility] REPOSITORY HNO ID: [id number] Author: Azucena () Coty Inman Service: (none) Author Type: Piece Maker Type: Progress Notes Filed: 05/13/2018 9:56 AM Note Text: Radiology Service Progress Note PATIENT NAME: Richard Roy DATE OF SERVICE: May 13, 2018 TIME: 9:56 AM PATIENT IDENTITY VERIFICATION COMPLETED USING TWO (2) METHODS: Patient confirmed name verbally and Date of . PATIENT GENDER DATA: Male PATIENT RELEVANT IMPLANT DATA REVIEWED: Not Applicable RADIOLOGY DEPARTMENT: General X-ray: Exam(s) Completed: Lower Extremity X-Ray(s): Foot, Right and Wt. Bearing: PERIPHERAL IV DATA: Not applicable SIGNED BY: RT Ziggy May 13, 2018 9:56 AM XR FOOT 3V AP/LAT/OBL Observed: 05/13/2018 Status: F Source: [facility] 9:55 AM [facility] REPOSITORY * * *Final Report* * * DATE OF EXAM: May 13 2018 9:55AM [id number] [id number] - XR FOOT 3V AP/LAT/OBL RT / PROCEDURE REASON: multiple diagnoses * * * * Physician Interpretation * * * * HISTORY: 72-YEAR-OLD MALE WITH Wound dehiscence Post-operative state . follow up to right foot 1st digit amputation TECHNIQUE: XR FOOT 3V AP/LAT/OBL RT Laterality: RIGHT Number of different views (projections): 3 COMPARISON: 04/10/2018 RESULT: Status post amputation of the great toe at the first MTP joint. Soft tissue swelling and soft tissue stump and dorsally in the foot slightly increased since the previous exam. Calcaneal enthesophyte insertion plantar fascia. Mild degenerative changes at the navicular cuneiform articulation. IMPRESSION: STATUS POST GREAT TOE AMPUTATION WITH INCREASED SOFT TISSUE SWELLING OTHERWISE UNCHANGED. Pest Management Supervisor: BLAKE Transcribe Date/Time: May 13 2018 5:37P Dictated by : JOJO HOWARD MD This examination was interpreted and the report reviewed and electronically signed by: JOJO HOWARD MD on May 13 2018 5:39PM EST [id number] BASIC METABOLIC PANL Collected: 05/12/2018 Status: F Source: [place] 8:58 AM [facility] REPOSITORY TYPE CODE TESTS RESULT OUT OF REFERENCE UNITS RANGE LAB GLU 74-99 mg/dL Glucose High 182 LAB BUN 7-21 mg/dL BUN High 22 LAB CRET 0.73-1.22 mg/dL Creatinine 1.05 LAB NA 136-144 mmol/L Sodium 139 LAB K 3.7-5.1 mmol/L Potassium 4.3 LAB CL 97-105 mmol/L Chloride 101 LAB CO2 22-30 mmol/L CO2 27 LAB AGAP 9-18 mmol/L Anion Gap 11 LAB CA 8.5-10.2 mg/dL Calcium, Total 10.0 LAB GFRAA eGFR- >60 Amer. LAB GFRNAA . eGFR-All Other Races >60 Result Comment: eGFR (Estimated GFR) Units of measure: mL/min/1.73 meters squared eGFR is derived from the reexpressed MDRD Study equation using the following parameters: serum creatinine, age, gender and race. The creatinine assay has been calibrated to be traceable to IDMS. An eGFR <60 mL/min/1.73m2 for >3 months is consistent with chronic kidney disease. Refer to KDOQI guidelines for clinical interpretation. In patients with unstable renal function, e.g. those with acute kidney injury, the eGFR may not accurately reflect actual GFR. PROTIME Collected: 05/12/2018 Status: F Source: [place] 8:57 AM [facility] REPOSITORY TYPE CODE TESTS RESULT OUT OF RANGE REFERENCE UNITS LAB PSEC 9.7-13.0 sec PT Sec 11.7 LAB INR 0.9-1.3 PT INR 1.1 Result Comment: Vitamin K Antagonist (VKA) Therapeutic Range: INR 2 to 3 (Target INR of 2.5) Note: For patients treated with VKA drugs, such as warfarin, the [employer] 2012 Guideline recommends a therapeutic INR range of 2 to 3 (target INR of 2.5). This recommendation includes high-risk patients with antiphospholipid syndrome with previous arterial or venous thromboembolism, current-generation mechanical or bioprosthetic aortic heart valve replacement. Note: Patients with mechanical aortic valve replacement and additional risk factors for thromboembolic events (atrial fibrillation, previous thromboembolism, LV dysfunction, hypercoagulable conditions) or an older generation mechanical AVR (i.e., ball in-Cage) or any mechanical MVR should have a INR therapeutic range of 2.5 to 3.5 (target INR of 3). Adalbertott GH, et al. Chest 2012, 141:7S-47S [place] RA, et al. [facility] 2017, 70: 252-289 Performed By: #### PT #### [facility] [address], [place] [address] HEMOGLOBIN A1C Collected: 05/12/2018 Status: F Source: [place] 8:57 AM [facility] [place] REPOSITORY TYPE CODE TESTS RESULT OUT OF REFERENCE UNITS RANGE LAB HGBA1C 4.3-5.6 % High Hemoglobin A1c 6.5 LAB HBA0 mg/dL Est. Average Glucose 140 Result Comment: eAG: (Estimated average glucose) is a calculated value from HgbA1c and is sales representative printing of the average blood glucose level in the last 2-3 month period. Performed By: #### HBA1C #### [facility] [address], [place] [address] ERYTHROCYTE SED RATE Collected: 05/07/2018 Status: F Source: [place] 6:05 AM [facility] REPOSITORY Order Comment: ROOM 305 TYPE CODE TESTS RESULT OUT OF RANGE REFERENCE UNITS LAB L102.0000 0-20 mm/hr Normal SED RATE 17 Performed By: #### L101.9900, L100.0100 #### [facility] [address] [place], [address] CBC W/DIFF, AUTOMATED Collected: 05/07/2018 Status: F Source: [place] 6:05 AM [facility] REPOSITORY Order Comment: ROOM 305 TYPE CODE TESTS RESULT OUT OF RANGE REFERENCE UNITS LAB L100.1000 4.4-11.0 K/mm3 Normal WBC 9.5 LAB L100.1200 4.6-6.2 M/mm3 Low RBC 4.12 LAB L100.1300 13.0-16.5 g/dl Low HGB 11.0 LAB L100.1400 40-54 % Low HCT 35.6 LAB L100.1500 80-94 fL Normal MCV 86.4 LAB L100.1600 27.0-32.0 pg Low MCH 26.7 LAB L100.1700 32-36 g/gl Low MCHC 30.9 LAB L100.1810 11.6-14.6 % Normal RDW CV 14.4 LAB L100.1820 35.1-43.9 fl High RDW SD 45.1 LAB L100.1900 150-450 K/mm3 Normal PLT 219 LAB L100.2000 6.2-12.0 fl Normal MPV 9.5 LAB L100.2100 47-70 % Normal NEUT% 68.7 LAB L100.2200 19-41 % Normal LY% 19.6 LAB L100.2300 0-10 % Normal MONO% 7.0 LAB L100.2400 0-5 % Normal EO% 4.1 LAB L100.2500 0-1 % Normal BASO% 0.2 LAB L100.2550 0.0-0.9 % Normal IM GRAN % 0.400 Result Comment: IG% - Immature Granulocytes (promyelocytes, myelocytes and metamyelocytes) > 1% indicates that a LEFT SHIFT is Present. LAB L100.2620 2.0-7.7 X10 3/uL Normal Absolute Neut 6.5 LAB L100.2720 0.83-4.51 X10 3/ul Normal Absolute Lymph 1.86 Performed By: #### L101.9900, L100.0100 #### [facility] [address] [place], [place], [address] BASIC METABOLIC Collected: 05/07/2018 Status: F Source: [place] PROFILE (BMP) 6:05 AM [facility] REPOSITORY Order Comment: ROOM 305 TYPE CODE TESTS RESULT OUT OF RANGE REFERENCE UNITS LAB L501.0100 74-106 mg/dL High GLU 128 Result Comment: Fasting Glucose result greater than or equal to 126 mg/dL suggests DIABETES MELLITUS per A.D.A. criteria. Please note revised GLUCOSE reference range effective 2017. LAB L501.1000 7-18 mg/dL High BUN 30 LAB L501.1100 0.70-1.30 mg/dL Normal CREAT,SERUM 1.15 Result Comment: The validity of the calculated GFR AND GFRAA in patients over 70 years has not been determined. Clinical correlation is essential. LAB L501.1110 >60 mL/min Normal EST GFR 67 Result Comment: Non- GFR Calc LAB L501.1115 >60 mL/min Normal EST GFR - AA 81 Result Comment: GFR Calc LAB L501.1300 10-20 RATIO High BUN/CRE 26.1 LAB L501.2200 8.5-10.1 mg/dL CA Normal 8.7 LAB L501.5300 136-145 mmol/L NA Normal 140 LAB L501.5600 3.5-5.1 mmol/L K Normal 3.9 LAB L501.5900 98-107 mmol/L CL Normal 103 LAB L501.6100 21.0-32.0 mmol/L Normal CO2 29.0 LAB L501.6200 5-15 Normal GAP 8 Performed By: #### L500.2500 #### [facility] [address] [address] [employer] [facility]. [place], [place], [address] PROGRESS Observed: 05/06/2018 Status: COMPLETED Source: [place] 1:29 PM [facility] REPOSITORY HNO ID: [id number] Author: Blaire De La Torre RN Service: (none) Author Type: (none) Type: Progress Notes Filed: 05/06/2018 1:30 PM Note Text: Betadine applied to R surgical site. Aquacel applied overtop betadine. Secured with a 4x4, yu, kerlix and BERNIE. PROGRESS Observed: 05/06/2018 Status: COMPLETED Source: [place] 11:46 AM [facility] REPOSITORY HNO ID: [id number] Author: Blaire De La Torre RN Service: (none) Author Type: (none) Type: Progress Notes Filed: 05/06/2018 1:30 PM Note Text: UNIVERSAL PROTOCOL / SAFETY CHECKLIST Procedure to be performed: delayed closure, R foot Sign in Communication: Completed Time Out: Team Confirms the Correct Patient, Correct Procedure, Correct Site and Site Marking, Correct Position (if applicable), Prep and Dry Time (if applicable). Time: 1146 Affirmation of Time Out: YES Sign Out Discussion: Completed Blaire De La Torre RN PROGRESS Observed: 05/06/2018 Status: COMPLETED Source: [place] 11:39 AM [facility] [place] REPOSITORY HNO ID: [id number] Author: Arminda Obregon Service: (none) Author Type: Physician Type: Progress Notes Filed: 05/06/2018 12:10 PM Note Text: Follow up podiatric office visit for: Chief Complaint: This 72 year old who presents for follow up:right hallux amputation. Patient is currently using sandra. He denies any drainage to his foot. He denies n/v/f/c. He is still on antibiotic until later in week. He feels the puncture wound of left foot is healed. He has no other complaints. He is scheduled for discharge from rehab on PAIN EVALUATION No data found. Hemoglobin A1C Date Value Ref Range Status 11/26/2017 8.1 (H) 4.3 - 5.6 % Final PCP: Dmitry Roberto III MD PAST MEDICAL HISTORY Diagnosis Date - Cholelithiasis 09/25/2013 - Diabetes mellitus with neurological manifestation (HCC) 09/08/2010 - Diverticulosis of colon (without mention of hemorrhage) - Encounter for monitoring coumadin therapy 09/23/2013 INR goal 2.5-3.5 - Essential hypertension, benign 10/28/2012 - Hyperlipidemia LDL goal < 100 04/01/2012 - Pulmonary embolus, right (HCC) 09/25/2013 - Status post aortic valve repair 2004 - Thoracic aneurysm without mention of rupture - Type 2 diabetes mellitus with stage 3 chronic kidney disease, with long-term current use of insulin ([facility]) 06/20/2016 - Type II or unspecified type diabetes mellitus without mention of complication, not stated as uncontrolled Current Outpatient Prescriptions: melatonin 10 mg tab Take 10 mg by mouth at bedtime as needed. collagenase (SANTYL) ointment Apply 1 application to affected area once daily. metFORMIN ER (GLUCOPHAGE XR) 500 mg 24 hr tablet Take 2 tablets by mouth twice daily with meals. atorvastatin (LIPITOR) 10 mg tablet TAKE 1 TABLET BY MOUTH DAILY AT BEDTIME. FOR CHOLESTEROL. (Patient taking differently: Patient taking 40 mg daily) insulin detemir U-100 (LEVEMIR U-100 INSULIN) 100 unit/mL injection Inject 34 Units subcutaneously twice daily DX: E11.49, E11.22 losartan (COZAAR) 50 mg tablet Take 1 tablet by mouth once daily. blood sugar diagnostic (ONETOUCH ULTRA TEST) test strip Test blood sugar(s) 5 times daily. Dx: E11.49. Insulin: Yes chlorthalidone (HYGROTON) 25 mg tablet TAKE 1 TABLET BY MOUTH ONCE DAILY. (Patient not taking: Reported on 04/10/2018) warfarin (COUMADIN) 5 mg tablet TAKE 5mg on Sundays, 10 mg on ALL OTHER DAYS dulaglutide (TRULICITY) 1.5 mg/0.5 mL pnij Inject 1.5 mg subcutaneously once each week. Inject once per week. Discard Pen After pioglitazone (ACTOS) 30 mg tablet Take 1 tablet by mouth once daily. (Patient not taking: Reported on 04/10/2018 ) metoprolol succinate ER (TOPROL XL) 200 mg 24 hr tablet TAKE 1 TABLET BY MOUTH ONCE DAILY. warfarin (COUMADIN) 5 mg tablet TAKE 1 TAB BY MOUTH ON SUNDAYS AND THURSDAYS, THEN TAKE 2 TABS BY MOUTH ONCE DAILY ON ALL OTHER DAYS aspirin, enteric coated (ASPIRIN LOW DOSE) 81 mg EC tablet Take 1 tablet by mouth once daily. Insulin Syringe-Needle U-100 (BD INSULIN SYRINGE UF II) 0.5 mL 31 gauge x 5/16 syrg Use 1 syringe for insulin injections five (5) times daily as directed. DX: 250.60 Insulin: Yes No current facility-administered medications for this visit. ALLERGIES No Known Allergies PAST SURGICAL HISTORY Procedure Laterality Date - COLONOSCOP W/ OR W/O [facility] SPEC 03/12/11 - DEBRIDE SKIN AND SUBQ TISSU 09-11-10 LEFT GROIN - DEBRIDEMENT OF SKIN, FULL THIC 09-12-10 LEFT GROIN - I AND D ABSCESS, SINGLE 09/08/10 IANDD abscess left groin - I AND D ABSCESS, SINGLE 10/23/10 IANDD medial to left groin wound - I AND D ABSCESS, SINGLE 01/22/11 IANDD LLQ superficial abscess - REM LESION TRUNK,ARM, LEG <0.5 CM 03/21/11 Exc. fibroepithelial polyp LLQ abd - REMOVAL DEVITAL TISSUE, ARTUR WND CHAPITO <20CM 11/22/10 Debridement posterior neck/IANDD LLQ abd - REVISION OF AORTIC VALVE 2005 Repair of Aortic Value/Thoracic anerusym repair Physical Exam: Constitutional: Pt is a well developed 72 year old male who is alert, oriented, cooperative and in no apparent distress. OBJECTIVE: NVSI unchanged from previous visit. Dermatological: Wound dehiscence with exposed subcutaneous tissue present to right 1st ray amputation. There is no drainage, there is no signs of infection. Wound dehiscence measures 1.2 cm x 0.9 cm. There is no exposed bone. No signs of infection Puncture wound of left foot appears healed Mild dryness is present to b/l feet Musculoskeletal/Orthopaedic: Patient has no pain to palpation of b/l feet ASSESSMENT: (T81.30XA) Wound dehiscence (primary encounter diagnosis) (Z98.890) Post-operative state PLAN: 1. History and physical examination completed today. 2. Patient was examined and informed of current findings 3. Discussed wound dehiscence of right foot. There is subcutaneous exposure. No signs of infection. Discussed return to wound vac vs attempting delayed closure of wound vs referral to wound center for hyperbarics vs further bone resection and closure of wound. Patient is not interested in any further bone removal. He is not keen on hyperbarics. He would like to try to have this wound closed with suture today. On exam, the wound edges approximate nicely without tension so will try to close the wound. Patient understands risk that this may only open up and if so, I would recommend the either hyperbarics and wound vac vs further bone resection. Wound was sharply debrided today with tissue nippers thru subcutaneous tissue. Bleeding present and controlled with pressure. 4. Discussed risks of delayed closure not limited to infection, pain, swelling, bleeding, wound dehiscence, deep space infection, hematoma, need for further bone resection. 5. Patient consents to proceed. Procedure in detail. Patient right foot was injected with 2.5 cc of 2% lidocaine plain. The right foot was prepped and draped in sterile technique. Timeout was performed making note of procedure. The right foot was irrigated with normal saline. The wound was then closed with combination of 2-0 nylon and 3-0 nylon. Wound edges came together free of tension or pressure. Betadine and silvercel was applied to his foot. Compression wrap with post-op dressing applied. 6. Patient will have nursing apply betadine to incision and silvercel atop incision daily. He will continue with surgical shoe and protective weightbearing 7. Patient to f/u in 1 week 8. Patient left foot is now healed. 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 He denies pain. Reports daily dressing changes as ordered at [facility]. R foot dressing removed with no complications. There is visible yellowish drainage through outer layer. 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 He denies pain. Reports daily dressing changes as ordered at [facility]. R foot dressing removed with no complications. There is visible yellowish drainage through outer layer. Crys Obregon DPM 05/06/2018 12:10 PM Signed Follow up podiatric office visit for: Chief Complaint: This 72 year old who presents for follow up:right hallux amputation. Patient is currently using sandra. He denies any drainage to his foot. He denies n/v/f/c. He is still on antibiotic until later in week. He feels the puncture wound of left foot is healed. He has no other complaints. He is scheduled for discharge from rehab on PAIN EVALUATION No data found. Hemoglobin A1C Date Value Ref Range Status 11/26/2017 8.1 (H) 4.3 - 5.6 % Final PCP: Dmitry Roberto III MD PAST MEDICAL HISTORY Diagnosis Date - Cholelithiasis 09/25/2013 - Diabetes mellitus with neurological manifestation (HCC) 09/08/2010 - Diverticulosis of colon (without mention of hemorrhage) - Encounter for monitoring coumadin therapy 09/23/2013 INR goal 2.5-3.5 - Essential hypertension, benign 10/28/2012 - Hyperlipidemia LDL goal < 100 04/01/2012 - Pulmonary embolus, right (HCC) 09/25/2013 - Status post aortic valve repair 2004 - Thoracic aneurysm without mention of rupture - Type 2 diabetes mellitus with stage 3 chronic kidney disease, with long-term current use of insulin ([facility]LY [facility]) 06/20/2016 - Type II or unspecified type diabetes mellitus without mention of complication, not stated as uncontrolled Current Outpatient Prescriptions: melatonin 10 mg tab Take 10 mg by mouth at bedtime as needed. collagenase (SANTYL) ointment Apply 1 application to affected area once daily. metFORMIN ER (GLUCOPHAGE XR) 500 mg 24 hr tablet Take 2 tablets by mouth twice daily with meals. atorvastatin (LIPITOR) 10 mg tablet TAKE 1 TABLET BY MOUTH DAILY AT BEDTIME. FOR CHOLESTEROL. (Patient taking differently: Patient taking 40 mg daily) insulin detemir U-100 (LEVEMIR U-100 INSULIN) 100 unit/mL injection Inject 34 Units subcutaneously twice daily DX: E11.49, E11.22 losartan (COZAAR) 50 mg tablet Take 1 tablet by mouth once daily. blood sugar diagnostic (GLOGTOUCH ULTRA TEST) test strip Test blood sugar(s) 5 times daily. Dx: E11.49. Insulin: Yes chlorthalidone (HYGROTON) 25 mg tablet TAKE 1 TABLET BY MOUTH ONCE DAILY. (Patient not taking: Reported on 04/10/2018) warfarin (COUMADIN) 5 mg tablet TAKE 5mg on Sundays, 10 mg on ALL OTHER DAYS dulaglutide (TRULICITY) 1.5 mg/0.5 mL pnij Inject 1.5 mg subcutaneously once each week. Inject once per week. Discard Pen After pioglitazone (ACTOS) 30 mg tablet Take 1 tablet by mouth once daily. (Patient not taking: Reported on 04/10/2018 ) metoprolol succinate ER (TOPROL XL) 200 mg 24 hr tablet TAKE 1 TABLET BY MOUTH ONCE DAILY. warfarin (COUMADIN) 5 mg tablet TAKE 1 TAB BY MOUTH ON SUNDAYS AND THURSDAYS, THEN TAKE 2 TABS BY MOUTH ONCE DAILY ON ALL OTHER DAYS aspirin, enteric coated (ASPIRIN LOW DOSE) 81 mg EC tablet Take 1 tablet by mouth once daily. Insulin Syringe-Needle U-100 (BD INSULIN SYRINGE UF II) 0.5 mL 31 gauge x 5/16 syrg Use 1 syringe for insulin injections five (5) times daily as directed. DX: 250.60 Insulin: Yes No current facility-administered medications for this visit. ALLERGIES No Known Allergies PAST SURGICAL HISTORY Procedure Laterality Date - COLONOSCOP W/ OR W/O [facility] SPEC 03/12/11 - DEBRIDE SKIN AND SUBQ TISSU 09-11-10 LEFT GROIN - DEBRIDEMENT OF SKIN, FULL THIC 09-12-10 LEFT GROIN - I AND D ABSCESS, SINGLE 09/08/10 IANDD abscess left groin - I AND D ABSCESS, SINGLE 10/23/10 IANDD medial to left groin wound - I AND D ABSCESS, SINGLE 01/22/11 IANDD LLQ superficial abscess - REM LESION TRUNK,ARM, LEG <0.5 CM 03/21/11 Exc. fibroepithelial polyp LLQ abd - REMOVAL DEVITAL TISSUE, ARTUR WND CHAPITO <20CM 11/22/10 Debridement posterior neck/IANDD LLQ abd - REVISION OF AORTIC VALVE 2005 Repair of Aortic Value/Thoracic anerusym repair Physical Exam: Constitutional: Pt is a well developed 72 year old male who is alert, oriented, cooperative and in no apparent distress. OBJECTIVE: NVSI unchanged from previous visit. Dermatological: Wound dehiscence with exposed subcutaneous tissue present to right 1st ray amputation. There is no drainage, there is no signs of infection. Wound dehiscence measures 1.2 cm x 0.9 cm. There is no exposed bone. No signs of infection Puncture wound of left foot appears healed Mild dryness is present to b/l feet Musculoskeletal/Orthopaedic: Patient has no pain to palpation of b/l feet ASSESSMENT: (T81.30XA) Wound dehiscence (primary encounter diagnosis) (Z98.890) Post-operative state PLAN: 1. History and physical examination completed today. 2. Patient was examined and informed of current findings 3. Discussed wound dehiscence of right foot. There is subcutaneous exposure. No signs of infection. Discussed return to wound vac vs attempting delayed closure of wound vs referral to wound center for hyperbarics vs further bone resection and closure of wound. Patient is not interested in any further bone removal. He is not keen on hyperbarics. He would like to try to have this wound closed with suture today. On exam, the wound edges approximate nicely without tension so will try to close the wound. Patient understands risk that this may only open up and if so, I would recommend the either hyperbarics and wound vac vs further bone resection. Wound was sharply debrided today with tissue nippers thru subcutaneous tissue. Bleeding present and controlled with pressure. 4. Discussed risks of delayed closure not limited to infection, pain, swelling, bleeding, wound dehiscence, deep space infection, hematoma, need for further bone resection. 5. Patient consents to proceed. Procedure in detail. Patient right foot was injected with 2.5 cc of 2% lidocaine plain. The right foot was prepped and draped in sterile technique. Timeout was performed making note of procedure. The right foot was irrigated with normal saline. The wound was then closed with combination of 2-0 nylon and 3-0 nylon. Wound edges came together free of tension or pressure. Betadine and silvercel was applied to his foot. Compression wrap with post-op dressing applied. 6. Patient will have nursing apply betadine to incision and silvercel atop incision daily. He will continue with surgical shoe and protective weightbearing 7. Patient to f/u in 1 week 8. Patient left foot is now healed. Continue with lotion to left foot WINSOME Young RN 05/06/2018 1:30 PM Addendum UNIVERSAL PROTOCOL / SAFETY CHECKLIST Procedure to be performed: delayed closure, R foot Sign in Communication: Completed Time Out: Team Confirms the Correct Patient, Correct Procedure, Correct Site and Site Marking, Correct Position (if applicable), Prep and Dry Time (if applicable). Time: 1146 Affirmation of Time Out: YES Sign Out Discussion: Completed Blaire De La Torre RN 05/06/2018 12:08 PM Signed Continue to wear post op shoe on R foot Apply betadine and Aquacel Ag to suture site on R foot daily. Blaire De La Torre RN 05/06/2018 1:30 PM Signed Betadine applied to R surgical site. Aquacel applied overtop betadine. Secured with a 4x4, yu, kerlix and BERNIE. Referring Provider: ARMINDA OBREGON [[id number]] Allergies As of Date: 05/06/2018 (No Known Allergies) Date Reviewed: 05/06/2018 Reviewed by: Crys Cabrera Ma - Fully Assessed Reason for Visit: Surgical Followup [104] Primary Visit Diagnosis:Wound dehiscence [T81.30XA] Other Visit Diagnosis:Post-operative state [Z98.890] Order(s):XR FOOT GENERAL 3V AP/LAT/OBL RT [[id number]] Order #: [id number] FUTURE Prescriptions as of 05/06/2018 Sig: MELATONIN 10 MG TABLET Take 10 mg by mouth at bedtim* COLLAGENASE CLOSTRIDIUM HISTO* Apply 1 application to affect* METFORMIN ER 500 MG TABLET,EX* Take 2 tablets by mouth twice* ATORVASTATIN 10 MG TABLET TAKE 1 TABLET BY MOUTH DAILY * Patient taking differently: Patient taking 40 mg daily INSULIN DETEMIR (U-100) 100 U* Inject 34 Units subcutaneousl* LOSARTAN 50 MG TABLET Take 1 tablet by mouth once d* BLOOD SUGAR DIAGNOSTIC STRIPS Test blood sugar(s) 5 times d* CHLORTHALIDONE 25 MG TABLET TAKE 1 TABLET BY MOUTH ONCE D* Patient not taking: Reported on 04/10/2018 WARFARIN 5 MG TABLET TAKE 5mg on Sundays, 10 mg on* DULAGLUTIDE 1.5 MG/0.5 ML SUB* Inject 1.5 mg subcutaneously * PIOGLITAZONE 30 MG TABLET Take 1 tablet by mouth once d* Patient not taking: Reported on 04/10/2018 METOPROLOL SUCCINATE ER 200 M* TAKE 1 TABLET BY MOUTH ONCE D* WARFARIN 5 MG TABLET TAKE 1 TAB BY MOUTH ON SATURDAY* ASPIRIN 81 MG TABLET,DELAYED * Take 1 tablet by mouth once d* INSULIN SYRINGE-NEEDLE U-100 * Use 1 syringe for insulin inj* Problem List As Of Date 05/06/2018 Noted Resolved Sciatica [M54.30] INVALID FOR*06/20/2016 Diabetes mellitus with neurological manifestati*INVALID FOR* Abscess [L02.91] INVALID FOR*06/20/2016 Non-healing surgical wound [T81.89XA] INVALID FOR*06/20/2016 Cellulitis and abscess [L03.90, L02.91] INVALID FOR*06/20/2016 Skin lesion [L98.9] INVALID FOR*06/20/2016 Hyperlipidemia with target LDL less than 100 [E*INVALID FOR* Essential hypertension, benign [I10] INVALID FOR* Morbid obesity with BMI of 40.0-44.9, adult (HC*INVALID FOR*08/19/2017 Encounter for monitoring coumadin therapy [Z51.*INVALID FOR* More... Pulmonary embolus, right (HCC) [I26.99] INVALID FOR*08/19/2017 Callus of foot [L84] INVALID FOR* Tinea of nail [B35.1] INVALID FOR* Cholelithiasis [K80.20] INVALID FOR* S/P aortic valve replacement [Z95.2] INVALID FOR*06/20/2016 Status post aortic valve repair [Z98.890] INVALID FOR* Type 2 diabetes mellitus with stage 3 chronic k*INVALID FOR* Obesity, Class II, BMI 35-39.9 [E66.9] INVALID FOR* Other instructions from your clinician: Continue to wear post op shoe on R foot Apply betadine and Aquacel Ag to suture site on R foot daily. Encounter Status:Closed by ARMINDA OBREGON DPM on 05/06/18 PROTHROMBIN TIME W/INR Collected: 05/05/2018 Status: F Source: [place] 5:35 AM [facility] REPOSITORY TYPE CODE TESTS RESULT OUT OF RANGE REFERENCE UNITS LAB L300.4150 11.7-14.9 SECONDS High PROTIME 16.4 LAB L300.4200 Normal INR 1.3 Performed By: #### L300.3900 #### [facility] [address] [place], [address] CBC W/DIFF, AUTOMATED Collected: 04/30/2018 Status: F Source: [place] 7:05 [facility] REPOSITORY Order Comment: 305 TYPE CODE TESTS RESULT OUT OF RANGE REFERENCE UNITS LAB L100.1000 4.4-11.0 K/mm3 Normal WBC 8.9 LAB L100.1200 4.6-6.2 M/mm3 Low RBC 3.85 LAB L100.1300 13.0-16.5 g/dl Low HGB 10.6 LAB L100.1400 40-54 % Low HCT 33.6 LAB L100.1500 80-94 fL Normal MCV 87.3 LAB L100.1600 27.0-32.0 pg Normal MCH 27.5 LAB L100.1700 32-36 g/gl Low MCHC 31.5 LAB L100.1810 11.6-14.6 % Normal RDW CV 14.0 LAB L100.1820 35.1-43.9 fl High RDW SD 44.1 LAB L100.1900 150-450 K/mm3 Normal PLT 215 LAB L100.2000 6.2-12.0 fl Normal MPV 9.9 LAB L100.2100 47-70 % Normal NEUT% 68.6 LAB L100.2200 19-41 % Normal LY% 19.4 LAB L100.2300 0-10 % Normal MONO% 6.7 LAB L100.2400 0-5 % Normal EO% 4.0 LAB L100.2500 0-1 % Normal BASO% 0.3 LAB L100.2550 0.0-0.9 % High IM GRAN % 1.000 Result Comment: IG% - Immature Granulocytes (promyelocytes, myelocytes and metamyelocytes) > 1% indicates that a LEFT SHIFT is Present. LAB L100.2620 2.0-7.7 X10 3/uL Normal Absolute Neut 6.1 LAB L100.2720 0.83-4.51 X10 3/ul Normal Absolute Lymph 1.73 Performed By: #### L100.0100, L101.9900 #### [facility] [address] [place], [address] ERYTHROCYTE SED RATE Collected: 04/30/2018 Status: F Source: [place] 7:05 [facility] REPOSITORY Order Comment: 305 TYPE CODE TESTS RESULT OUT OF RANGE REFERENCE UNITS LAB L102.0000 0-20 mm/hr Normal SED RATE 16 Performed By: #### L100.0100, L101.9900 #### [facility] [address] [place], [place], [address] BASIC METABOLIC Collected: 04/30/2018 Status: F Source: [place] PROFILE (BMP) 7:05 AM [facility] REPOSITORY Order Comment: 305 TYPE CODE TESTS RESULT OUT OF RANGE REFERENCE UNITS LAB L501.0100 74-106 mg/dL High GLU 144 Result Comment: Fasting Glucose result greater than or equal to 126 mg/dL suggests DIABETES MELLITUS per A.D.A. criteria. Please note revised GLUCOSE reference range effective 2017. LAB L501.1000 7-18 mg/dL High BUN 29 LAB L501.1100 0.70-1.30 mg/dL Normal CREAT,SERUM 1.21 Result Comment: The validity of the calculated GFR AND GFRAA in patients over 70 years has not been determined. Clinical correlation is essential. LAB L501.1110 >60 mL/min Normal EST GFR 63 Result Comment: Non- GFR Calc LAB L501.1115 >60 mL/min Normal EST GFR - AA 76 Result Comment: GFR Calc LAB L501.1300 10-20 RATIO High BUN/CRE 24.0 LAB L501.2200 8.5-10.1 mg/dL CA Normal 8.8 LAB L501.5300 136-145 mmol/L NA Normal 142 LAB L501.5600 3.5-5.1 mmol/L K Normal 4.0 LAB L501.5900 98-107 mmol/L CL Normal 105 LAB L501.6100 21.0-32.0 mmol/L Normal CO2 26.0 LAB L501.6200 5-15 Normal GAP 11 Performed By: #### L500.2500 #### [facility] [address] [place], [address] PROTHROMBIN TIME W/INR Collected: 04/30/2018 Status: F Source: PATIT[place] 7:05 AM [facility] REPOSITORY Order Comment: 305 TYPE CODE TESTS RESULT OUT OF RANGE REFERENCE UNITS LAB L300.4150 11.7-14.9 SECONDS High PROTIME 16.4 LAB L300.4200 Normal INR 1.3 Performed By: #### L300.3900 #### [facility] [address] [place], [address] PROGRESS Observed: 04/29/2018 Status: COMPLETED Source: [place] 9:57 PM [facility] [place] REPOSITORY HNO ID: [id number] Author: Arminda Sabas Service: (none) Author Type: Physician Type: Progress Notes Filed: 04/29/2018 10:05 PM Note Text: Follow up podiatric office visit for: Chief Complaint: This 72 year old who presents for follow up:right 1st ray ulceration. Patient currently using wound vac to right foot. He is still on antibiotic via iv. Patient is concerned that he has developed mild redness of right foot and he requested he switch his appointment to today to discuss. He denies n/v/f/c. Of note, he recently stepped on plastic object and has superficial abrasion of left foot. He has no other issues. He did see infectious disease last week PAIN EVALUATION No data found. Hemoglobin A1C Date Value Ref Range Status 11/26/2017 8.1 (H) 4.3 - 5.6 % Final PCP: Dmitry Roberto III MD PAST MEDICAL HISTORY Diagnosis Date - Cholelithiasis 09/25/2013 - Diabetes mellitus with neurological manifestation ([facility]) 09/08/2010 - Diverticulosis of colon (without mention of hemorrhage) - Encounter for monitoring coumadin therapy 09/23/2013 INR goal 2.5-3.5 - Essential hypertension, benign 10/28/2012 - Hyperlipidemia LDL goal < 100 04/01/2012 - Pulmonary embolus, right (HCC) 09/25/2013 - Status post aortic valve repair 2004 - Thoracic aneurysm without mention of rupture - Type 2 diabetes mellitus with stage 3 chronic kidney disease, with long-term current use of insulin ([facility]) 06/20/2016 - Type II or unspecified type diabetes mellitus without mention of complication, not stated as uncontrolled Current Outpatient Prescriptions: melatonin 10 mg tab Take 10 mg by mouth at bedtime as needed. collagenase (SANTYL) ointment Apply 1 application to affected area once daily. metFORMIN ER (GLUCOPHAGE XR) 500 mg 24 hr tablet Take 2 tablets by mouth twice daily with meals. atorvastatin (LIPITOR) 10 mg tablet TAKE 1 TABLET BY MOUTH DAILY AT BEDTIME. FOR CHOLESTEROL. (Patient taking differently: Patient taking 40 mg daily) insulin detemir U-100 (LEVEMIR U-100 INSULIN) 100 unit/mL injection Inject 34 Units subcutaneously twice daily DX: E11.49, E11.22 losartan (COZAAR) 50 mg tablet Take 1 tablet by mouth once daily. blood sugar diagnostic (GLOGTOUCH ULTRA TEST) test strip Test blood sugar(s) 5 times daily. Dx: E11.49. Insulin: Yes chlorthalidone (HYGROTON) 25 mg tablet TAKE 1 TABLET BY MOUTH ONCE DAILY. (Patient not taking: Reported on 04/10/2018) warfarin (COUMADIN) 5 mg tablet TAKE 5mg on Sundays, 10 mg on ALL OTHER DAYS dulaglutide (TRULICITY) 1.5 mg/0.5 mL pnij Inject 1.5 mg subcutaneously once each week. Inject once per week. Discard Pen After pioglitazone (ACTOS) 30 mg tablet Take 1 tablet by mouth once daily. (Patient not taking: Reported on 04/10/2018 ) metoprolol succinate ER (TOPROL XL) 200 mg 24 hr tablet TAKE 1 TABLET BY MOUTH ONCE DAILY. warfarin (COUMADIN) 5 mg tablet TAKE 1 TAB BY MOUTH ON SUNDAYS AND THURSDAYS, THEN TAKE 2 TABS BY MOUTH ONCE DAILY ON ALL OTHER DAYS aspirin, enteric coated (ASPIRIN LOW DOSE) 81 mg EC tablet Take 1 tablet by mouth once daily. Insulin Syringe-Needle U-100 (BD INSULIN SYRINGE UF II) 0.5 mL 31 gauge x 5/16 syrg Use 1 syringe for insulin injections five (5) times daily as directed. DX: 250.60 Insulin: Yes No current facility-administered medications for this visit. ALLERGIES No Known Allergies PAST SURGICAL HISTORY Procedure Laterality Date - COLONOSCOP W/ OR W/O [facility] SPEC 03/12/11 - DEBRIDE SKIN AND SUBQ TISSU 09-11-10 LEFT GROIN - DEBRIDEMENT OF SKIN, FULL THIC 09-12-10 LEFT GROIN - I AND D ABSCESS, SINGLE 09/08/10 IANDD abscess left groin - I AND D ABSCESS, SINGLE 10/23/10 IANDD medial to left groin wound - I AND D ABSCESS, SINGLE 01/22/11 IANDD LLQ superficial abscess - REM LESION TRUNK,ARM, LEG <0.5 CM 03/21/11 Exc. fibroepithelial polyp LLQ abd - REMOVAL DEVITAL TISSUE, ARTUR WND CHAPITO <20CM 11/22/10 Debridement posterior neck/IANDD LLQ abd - REVISION OF AORTIC VALVE 2005 Repair of Aortic Value/Thoracic anerusym repair Physical Exam: Constitutional: Pt is a well developed 72 year old male who is alert, oriented, cooperative and in no apparent distress. OBJECTIVE: NVSI unchanged from previous visit. Dermatological: Surgical incision to right 1st ray amputation is healed proximally and distally. Centrally, there is granular ulceration with no undermining or probing. There is no fibrotic tissue. There is midfoot redness likely that of irritation/inflammation. Redness improves with elevation. Ulceration of right 1st metatarsal measures 1.3 cm x 0.9 cm. No signs of exposed bone is noted. There is area of irritation/eschar of right 2nd toe likely due to adhesive drape. There is superficial abrasion of left lateral arch that measures 0.4 cm in diameter. No signs of infection. Musculoskeletal/Orthopaedic: Patient has no pain to palpation of b/l feet ASSESSMENT: (E11.621, L97.512) Diabetic ulcer of toe of right foot associated with type 2 diabetes mellitus, with fat layer exposed (HCC) (primary encounter diagnosis) (S90.812A) Abrasion of left foot, initial encounter PLAN: 1. History and physical examination completed today. 2. Discussed ulceration of right foot. There is increased granulation tissue without signs of undermining or probing. At this time, I am going to hold wound vac and apply sandra to wound daily. He will continue with compression daily. 3. Discussed his concern of redness of right foot. It is not very impressive. It is likely that of irritation. I suspect holding wound vac will help 4. He does have new wound of left foot the result of stepping on plastic object. Today, I debrided nonviable eschar with tissue nippers. No bleeding encountered. Recommend topical wound gel and bandaid daily. Offered surgical shoe but he is hesitant due to balance. 5. He will f/u in 1 week. He can make f/u with ID if he so chooses. Arminda Obregon DPM PROGRESS Observed: 04/29/2018 Status: COMPLETED Source: [place] 4:36 PM [facility] [place] REPOSITORY HNO ID: [id number] Author: Blaire De La Torre RN Service: (none) Author Type: (none) Type: Progress Notes Filed: 04/29/2018 10:05 PM Note Text: Sandra applied to R surgical site. Covered with 4x4 and yu. BERNIE applied to RLE toes to knee for compression. Amerigel and band-aid applied to wound of L plantar foot. CNOV Observed: 04/29/2018 Status: COMPLETED Source: [place] 3:55 PM [facility] REPOSITORY Office Visit (PODIWS) RICHARD ROY ([id number]) 1945 M Date Time Provider Department 04/29/18 3:55 PM ARMINDA OBREGON During your visit today, we recorded the following information about you: Crys Cabrera Ma 04/29/2018 10:05 PM Signed AMB ROOMING INTAKE FLOWSHEET DATA Risk Screening Do you have concerns about personal safety or safety in the home?: No 35 day post R hallux amputation and 32 day s/p R closure with wound vac. Patient reports SNF has concerns over small area's of redness to R foot under wound vac drape. Patient denies pain, nausea, vomiting, fever, chills. Reports that he stepped on vac clamp the other day and now has small, non painful area on L plantar foot. Visible bruising noted. Patient on IV antibiotics per ID. Wound vac removed with no complications. Crys Cabrera Ma 04/29/2018 4:29 PM Signed Hold on would vac until patient seen in office next week. New orders: Cleanse R 1st metatarsal wound with normal saline daily. Apply Sandra/Promogran to R 1st metatarsal wound daily, cover with 4x4 and yu. BERNIE compression AM to PM toes to knee to RLE. Apply neosporin or any antibiotic ointment to L plantar foot wound. WINSOME Young RN 04/29/2018 10:05 PM Signed Sandra applied to R surgical site. Covered with 4x4 and yu. BERNIE applied to RLE toes to knee for compression. Amerigel and band-aid applied to wound of L plantar foot. Arminda Obregon DPM 04/29/2018 10:05 PM Signed Follow up podiatric office visit for: Chief Complaint: This 72 year old who presents for follow up:right 1st ray ulceration. Patient currently using wound vac to right foot. He is still on antibiotic via iv. Patient is concerned that he has developed mild redness of right foot and he requested he switch his appointment to today to discuss. He denies n/v/f/c. Of note, he recently stepped on plastic object and has superficial abrasion of left foot. He has no other issues. He did see infectious disease last week PAIN EVALUATION No data found. Hemoglobin A1C Date Value Ref Range Status 11/26/2017 8.1 (H) 4.3 - 5.6 % Final PCP: Dmitry Roberto III MD PAST MEDICAL HISTORY Diagnosis Date - Cholelithiasis 09/25/2013 - Diabetes mellitus with neurological manifestation (HCC) 09/08/2010 - Diverticulosis of colon (without mention of hemorrhage) - Encounter for monitoring coumadin therapy 09/23/2013 INR goal 2.5-3.5 - Essential hypertension, benign 10/28/2012 - Hyperlipidemia LDL goal < 100 04/01/2012 - Pulmonary embolus, right (HCC) 09/25/2013 - Status post aortic valve repair 2004 - Thoracic aneurysm without mention of rupture - Type 2 diabetes mellitus with stage 3 chronic kidney disease, with long-term current use of insulin (FORMERLY [facility]) 06/20/2016 - Type II or unspecified type diabetes mellitus without mention of complication, not stated as uncontrolled Current Outpatient Prescriptions: melatonin 10 mg tab Take 10 mg by mouth at bedtime as needed. collagenase (SANTYL) ointment Apply 1 application to affected area once daily. metFORMIN ER (GLUCOPHAGE XR) 500 mg 24 hr tablet Take 2 tablets by mouth twice daily with meals. atorvastatin (LIPITOR) 10 mg tablet TAKE 1 TABLET BY MOUTH DAILY AT BEDTIME. FOR CHOLESTEROL. (Patient taking differently: Patient taking 40 mg daily) insulin detemir U-100 (LEVEMIR U-100 INSULIN) 100 unit/mL injection Inject 34 Units subcutaneously twice daily DX: E11.49, E11.22 losartan (COZAAR) 50 mg tablet Take 1 tablet by mouth once daily. blood sugar diagnostic (ONETOUCH ULTRA TEST) test strip Test blood sugar(s) 5 times daily. Dx: E11.49. Insulin: Yes chlorthalidone (HYGROTON) 25 mg tablet TAKE 1 TABLET BY MOUTH ONCE DAILY. (Patient not taking: Reported on 04/10/2018) warfarin (COUMADIN) 5 mg tablet TAKE 5mg on Sundays, 10 mg on ALL OTHER DAYS dulaglutide (TRULICITY) 1.5 mg/0.5 mL pnij Inject 1.5 mg subcutaneously once each week. Inject once per week. Discard Pen After pioglitazone (ACTOS) 30 mg tablet Take 1 tablet by mouth once daily. (Patient not taking: Reported on 04/10/2018 ) metoprolol succinate ER (TOPROL XL) 200 mg 24 hr tablet TAKE 1 TABLET BY MOUTH ONCE DAILY. warfarin (COUMADIN) 5 mg tablet TAKE 1 TAB BY MOUTH ON SUNDAYS AND THURSDAYS, THEN TAKE 2 TABS BY MOUTH ONCE DAILY ON ALL OTHER DAYS aspirin, enteric coated (ASPIRIN LOW DOSE) 81 mg EC tablet Take 1 tablet by mouth once daily. Insulin Syringe-Needle U-100 (BD INSULIN SYRINGE UF II) 0.5 mL 31 gauge x 5/16 syrg Use 1 syringe for insulin injections five (5) times daily as directed. DX: 250.60 Insulin: Yes No current facility-administered medications for this visit. ALLERGIES No Known Allergies PAST SURGICAL HISTORY Procedure Laterality Date - COLONOSCOP W/ OR W/O [facility] SPEC 03/12/11 - DEBRIDE SKIN AND SUBQ TISSU 09-11-10 LEFT GROIN - DEBRIDEMENT OF SKIN, FULL THIC 09-12-10 LEFT GROIN - I AND D ABSCESS, SINGLE 09/08/10 IANDD abscess left groin - I AND D ABSCESS, SINGLE 10/23/10 IANDD medial to left groin wound - I AND D ABSCESS, SINGLE 01/22/11 IANDD LLQ superficial abscess - REM LESION TRUNK,ARM, LEG <0.5 CM 03/21/11 Exc. fibroepithelial polyp LLQ abd - REMOVAL DEVITAL TISSUE, ARTUR WND CHAPITO <20CM 11/22/10 Debridement posterior neck/IANDD LLQ abd - REVISION OF AORTIC VALVE 2005 Repair of Aortic Value/Thoracic anerusym repair Physical Exam: Constitutional: Pt is a well developed 72 year old male who is alert, oriented, cooperative and in no apparent distress. OBJECTIVE: NVSI unchanged from previous visit. Dermatological: Surgical incision to right 1st ray amputation is healed proximally and distally. Centrally, there is granular ulceration with no undermining or probing. There is no fibrotic tissue. There is midfoot redness likely that of irritation/inflammation. Redness improves with elevation. Ulceration of right 1st metatarsal measures 1.3 cm x 0.9 cm. No signs of exposed bone is noted. There is area of irritation/eschar of right 2nd toe likely due to adhesive drape. There is superficial abrasion of left lateral arch that measures 0.4 cm in diameter. No signs of infection. Musculoskeletal/Orthopaedic: Patient has no pain to palpation of b/l feet ASSESSMENT: (E11.621, L97.512) Diabetic ulcer of toe of right foot associated with type 2 diabetes mellitus, with fat layer exposed (HCC) (primary encounter diagnosis) (S90.812A) Abrasion of left foot, initial encounter PLAN: 1. History and physical examination completed today. 2. Discussed ulceration of right foot. There is increased granulation tissue without signs of undermining or probing. At this time, I am going to hold wound vac and apply sandra to wound daily. He will continue with compression daily. 3. Discussed his concern of redness of right foot. It is not very impressive. It is likely that of irritation. I suspect holding wound vac will help 4. He does have new wound of left foot the result of stepping on plastic object. Today, I debrided nonviable eschar with tissue nippers. No bleeding encountered. Recommend topical wound gel and bandaid daily. Offered surgical shoe but he is hesitant due to balance. 5. He will f/u in 1 week. He can make f/u with ID if he so chooses. Arminda Obregon DPM Referring Provider: ARMINDA OBREGON [[id number]] Allergies As of Date: 04/29/2018 (No Known Allergies) Date Reviewed: 04/29/2018 Reviewed by: Crys Cabrera Ma - Fully Assessed Reason for Visit: Surgical Followup [104] Primary Visit Diagnosis:Diabetic ulcer of toe of right foot associated with type 2 diabetes mellitus, with fat layer exposed (HCC) [E11.621, L97.512] Other Visit Diagnosis:Abrasion of left foot, initial encounter [S90.812A] Prescriptions as of 04/29/2018 Sig: MELATONIN 10 MG TABLET Take 10 mg by mouth at bedtim* COLLAGENASE CLOSTRIDIUM HISTO* Apply 1 application to affect* METFORMIN ER 500 MG TABLET,EX* Take 2 tablets by mouth twice* ATORVASTATIN 10 MG TABLET TAKE 1 TABLET BY MOUTH DAILY * Patient taking differently: Patient taking 40 mg daily INSULIN DETEMIR (U-100) 100 U* Inject 34 Units subcutaneousl* LOSARTAN 50 MG TABLET Take 1 tablet by mouth once d* BLOOD SUGAR DIAGNOSTIC STRIPS Test blood sugar(s) 5 times d* CHLORTHALIDONE 25 MG TABLET TAKE 1 TABLET BY MOUTH ONCE D* Patient not taking: Reported on 04/10/2018 WARFARIN 5 MG TABLET TAKE 5mg on Sundays, 10 mg on* DULAGLUTIDE 1.5 MG/0.5 ML SUB* Inject 1.5 mg subcutaneously * PIOGLITAZONE 30 MG TABLET Take 1 tablet by mouth once d* Patient not taking: Reported on 04/10/2018 METOPROLOL SUCCINATE ER 200 M* TAKE 1 TABLET BY MOUTH ONCE D* WARFARIN 5 MG TABLET TAKE 1 TAB BY MOUTH ON SATURDAY* ASPIRIN 81 MG TABLET,DELAYED * Take 1 tablet by mouth once d* INSULIN SYRINGE-NEEDLE U-100 * Use 1 syringe for insulin inj* Problem List As Of Date 04/29/2018 Noted Resolved Sciatica [M54.30] INVALID FOR*06/20/2016 Diabetes mellitus with neurological manifestati*INVALID FOR* Abscess [L02.91] INVALID FOR*06/20/2016 Non-healing surgical wound [T81.89XA] INVALID FOR*06/20/2016 Cellulitis and abscess [L03.90, L02.91] INVALID FOR*06/20/2016 Skin lesion [L98.9] INVALID FOR*06/20/2016 Hyperlipidemia with target LDL less than 100 [E*INVALID FOR* Essential hypertension, benign [I10] INVALID FOR* Morbid obesity with BMI of 40.0-44.9, adult (HC*INVALID FOR*08/19/2017 Encounter for monitoring coumadin therapy [Z51.*INVALID FOR* More... Pulmonary embolus, right (HCC) [I26.99] INVALID FOR*08/19/2017 Callus of foot [L84] INVALID FOR* Tinea of nail [B35.1] INVALID FOR* Cholelithiasis [K80.20] INVALID FOR* S/P aortic valve replacement [Z95.2] INVALID FOR*06/20/2016 Status post aortic valve repair [Z98.890] INVALID FOR* Type 2 diabetes mellitus with stage 3 chronic k*INVALID FOR* Obesity, Class II, BMI 35-39.9 [E66.9] INVALID FOR* Other instructions from your clinician: Hold on would vac until patient seen in office next week. New orders: Cleanse R 1st metatarsal wound with normal saline daily. Apply Sandra/Promogran to R 1st metatarsal wound daily, cover with 4x4 and yu. BERNIE compression AM to PM toes to knee to RLE. Apply neosporin or any antibiotic ointment to L plantar foot wound. Arminda Obregon DPM Encounter Status:Closed by ARMINDA OBREGON DPM on 04/29/18 PROGRESS Observed: 04/29/2018 Status: COMPLETED Source: [place] 3:49 PM [facility] REPOSITORY HNO ID: [id number] Author: Crys Cabrera Ma Service: (none) Author Type: (none) Type: Progress Notes Filed: 04/29/2018 10:05 PM Note Text: AMB ROOMING INTAKE FLOWSHEET DATA Risk Screening Do you have concerns about personal safety or safety in the home?: No 35 day post R hallux amputation and 32 day s/p R closure with wound vac. Patient reports SNF has concerns over small area's of redness to R foot under wound vac drape. Patient denies pain, nausea, vomiting, fever, chills. Reports that he stepped on vac clamp the other day and now has small, non painful area on L plantar foot. Visible bruising noted. Patient on IV antibiotics per ID. Wound vac removed with no complications. Crys Cabrera Ma PROTHROMBIN TIME W/INR Collected: 04/23/2018 Status: F Source: [place] 6:55 AM [facility] REPOSITORY Order Comment: 305 TYPE CODE TESTS RESULT OUT OF RANGE REFERENCE UNITS LAB L300.4150 11.7-14.9 SECONDS High PROTIME 16.6 LAB L300.4200 Normal INR 1.3 Performed By: #### L300.3900 #### [facility] [place], [address] BASIC METABOLIC Collected: 04/23/2018 Status: F Source: PATITO PROFILE (BMP) 6:55 AM [facility] REPOSITORY Order Comment: 305 TYPE CODE TESTS RESULT OUT OF RANGE REFERENCE UNITS LAB L501.0100 74-106 mg/dL High GLU 139 Result Comment: Fasting Glucose result greater than or equal to 126 mg/dL suggests DIABETES MELLITUS per A.D.A. criteria. Please note revised GLUCOSE reference range effective 2017. LAB L501.1000 7-18 mg/dL High BUN 26 LAB L501.1100 0.70-1.30 mg/dL Normal CREAT,SERUM 1.14 Result Comment: The validity of the calculated GFR AND GFRAA in patients over 70 years has not been determined. Clinical correlation is essential. LAB L501.1110 >60 mL/min Normal EST GFR 67 Result Comment: Non- GFR Calc LAB L501.1115 >60 mL/min Normal EST GFR - AA 82 Result Comment: GFR Calc LAB L501.1300 10-20 RATIO High BUN/CRE 22.8 LAB L501.2200 8.5-10.1 mg/dL Low CA 8.4 LAB L501.5300 136-145 mmol/L NA Normal 140 LAB L501.5600 3.5-5.1 mmol/L K Normal 3.8 LAB L501.5900 98-107 mmol/L CL Normal 105 LAB L501.6100 21.0-32.0 mmol/L Normal CO2 29.0 LAB L501.6200 5-15 Normal GAP 6 Performed By: #### L500.2500 #### [facility] [address] [place], [place], [address] ERYTHROCYTE SED RATE Collected: 04/23/2018 Status: F Source: PATITO 6:55 AM [facility] REPOSITORY Order Comment: 305 TYPE CODE TESTS RESULT OUT OF RANGE REFERENCE UNITS LAB L102.0000 0-20 mm/hr Normal SED RATE 15 Performed By: #### L101.9900, L100.0100 #### [facility] [address] [place], [address] CBC W/DIFF, AUTOMATED Collected: 04/23/2018 Status: F Source: [place] 6:55 AM [facility] REPOSITORY Order Comment: 305 TYPE CODE TESTS RESULT OUT OF RANGE REFERENCE UNITS LAB L100.1000 4.4-11.0 K/mm3 Normal WBC 7.5 LAB L100.1200 4.6-6.2 M/mm3 Low RBC 3.79 LAB L100.1300 13.0-16.5 g/dl Low HGB 10.1 LAB L100.1400 40-54 % Low HCT 32.6 LAB L100.1500 80-94 fL Normal MCV 86.0 LAB L100.1600 27.0-32.0 pg Low MCH 26.6 LAB L100.1700 32-36 g/gl Low MCHC 31.0 LAB L100.1810 11.6-14.6 % Normal RDW CV 14.3 LAB L100.1820 35.1-43.9 fl High RDW SD 44.7 LAB L100.1900 150-450 K/mm3 Normal PLT 183 LAB L100.2000 6.2-12.0 fl Normal MPV 9.5 LAB L100.2100 47-70 % Normal NEUT% 63.3 LAB L100.2200 19-41 % Normal LY% 24.7 LAB L100.2300 0-10 % Normal MONO% 6.4 LAB L100.2400 0-5 % Normal EO% 4.9 LAB L100.2500 0-1 % Normal BASO% 0.3 LAB L100.2550 0.0-0.9 % Normal IM GRAN % 0.400 Result Comment: IG% - Immature Granulocytes (promyelocytes, myelocytes and metamyelocytes) > 1% indicates that a LEFT SHIFT is Present. LAB L100.2620 2.0-7.7 X10 3/uL Normal Absolute Neut 4.8 LAB L100.2720 0.83-4.51 X10 3/ul Normal Absolute Lymph 1.86 Performed By: #### L101.9900, L100.0100 #### [facility] [address] [address] [facility] [address] [facility] [place], [address] PROGRESS Observed: 04/22/2018 Status: COMPLETED Source: [place] 11:45 AM [facility] REPOSITORY HNO ID: [id number] Author: Sweta Osborne MA Service: (none) Author Type: (none) Type: Progress Notes Filed: 04/22/2018 11:48 AM Note Text: Per Dr. Obregon, wound irrigated with normal saline betadine, applied Third Chicken AG R surgical site. Covered with 4X4, forrest nicholasx. PROGRESS Observed: 04/22/2018 Status: COMPLETED Source: [place] 11:21 AM [facility] [place] REPOSITORY HNO ID: [id number] Author: Arminda [place] Service: (none) Author Type: Physician Type: Progress Notes Filed: 04/22/2018 11:28 AM Note Text: Follow up podiatric office visit for: Chief Complaint: This 72 year old who presents for follow up:right hallux amputation. Patient is 25 days s/p delayed closure of right foot wound. Following closure of wound, he developed post-op serous discharge so suture were removed to allow drainage. He has wound to medial aspect of right foot that is being treated with wound vac. He denies n/v/f/c. He is on antibiotics tid. He has no pain to right foot PAIN EVALUATION No data found. Hemoglobin A1C Date Value Ref Range Status 11/26/2017 8.1 (H) 4.3 - 5.6 % Final PCP: Dmitry Roberto III MD PAST MEDICAL HISTORY Diagnosis Date - Cholelithiasis 09/25/2013 - Diabetes mellitus with neurological manifestation (HCC) 09/08/2010 - Diverticulosis of colon (without mention of hemorrhage) - Encounter for monitoring coumadin therapy 09/23/2013 INR goal 2.5-3.5 - Essential hypertension, benign 10/28/2012 - Hyperlipidemia LDL goal < 100 04/01/2012 - Pulmonary embolus, right (HCC) 09/25/2013 - Status post aortic valve repair 2004 - Thoracic aneurysm without mention of rupture - Type 2 diabetes mellitus with stage 3 chronic kidney disease, with long-term current use of insulin ([facility]) 06/20/2016 - Type II or unspecified type diabetes mellitus without mention of complication, not stated as uncontrolled Current Outpatient Prescriptions: melatonin 10 mg tab Take 10 mg by mouth at bedtime as needed. collagenase (SANTYL) ointment Apply 1 application to affected area once daily. metFORMIN ER (GLUCOPHAGE XR) 500 mg 24 hr tablet Take 2 tablets by mouth twice daily with meals. atorvastatin (LIPITOR) 10 mg tablet TAKE 1 TABLET BY MOUTH DAILY AT BEDTIME. FOR CHOLESTEROL. (Patient taking differently: Patient taking 40 mg daily) insulin detemir U-100 (LEVEMIR U-100 INSULIN) 100 unit/mL injection Inject 34 Units subcutaneously twice daily DX: E11.49, E11.22 losartan (COZAAR) 50 mg tablet Take 1 tablet by mouth once daily. blood sugar diagnostic ([employer] ULTRA TEST) test strip Test blood sugar(s) 5 times daily. Dx: E11.49. Insulin: Yes chlorthalidone (HYGROTON) 25 mg tablet TAKE 1 TABLET BY MOUTH ONCE DAILY. (Patient not taking: Reported on 04/10/2018) warfarin (COUMADIN) 5 mg tablet TAKE 5mg on Sundays, 10 mg on ALL OTHER DAYS dulaglutide (TRULICITY) 1.5 mg/0.5 mL pnij Inject 1.5 mg subcutaneously once each week. Inject once per week. Discard Pen After pioglitazone (ACTOS) 30 mg tablet Take 1 tablet by mouth once daily. (Patient not taking: Reported on 04/10/2018 ) metoprolol succinate ER (TOPROL XL) 200 mg 24 hr tablet TAKE 1 TABLET BY MOUTH ONCE DAILY. warfarin (COUMADIN) 5 mg tablet TAKE 1 TAB BY MOUTH ON SUNDAYS AND THURSDAYS, THEN TAKE 2 TABS BY MOUTH ONCE DAILY ON ALL OTHER DAYS aspirin, enteric coated (ASPIRIN LOW DOSE) 81 mg EC tablet Take 1 tablet by mouth once daily. Insulin Syringe-Needle U-100 (BD INSULIN SYRINGE UF II) 0.5 mL 31 gauge x 5/16 syrg Use 1 syringe for insulin injections five (5) times daily as directed. DX: 250.60 Insulin: Yes No current facility-administered medications for this visit. ALLERGIES No Known Allergies PAST SURGICAL HISTORY Procedure Laterality Date - COLONOSCOP W/ OR W/O [facility] SPEC 03/12/11 - DEBRIDE SKIN AND SUBQ TISSU 09-11-10 LEFT GROIN - DEBRIDEMENT OF SKIN, FULL THIC 09-12-10 LEFT GROIN - I AND D ABSCESS, SINGLE 09/08/10 IANDD abscess left groin - I AND D ABSCESS, SINGLE 10/23/10 IANDD medial to left groin wound - I AND D ABSCESS, SINGLE 01/22/11 IANDD LLQ superficial abscess - REM LESION TRUNK,ARM, LEG <0.5 CM 03/21/11 Exc. fibroepithelial polyp LLQ abd - REMOVAL DEVITAL TISSUE, ARTUR WND CHAPITO <20CM 11/22/10 Debridement posterior neck/IANDD LLQ abd - REVISION OF AORTIC VALVE 2005 Repair of Aortic Value/Thoracic anerusym repair Physical Exam: Constitutional: Pt is a well developed 72 year old male who is alert, oriented, cooperative and in no apparent distress. OBJECTIVE: NVSI unchanged from previous visit. Dermatological: Wound dehiscence is noted to right medial amputation site. There is increased granulation tissue. There is no undermining on exam. Wound measures 0.9 cm x 1.2 cm (width to length). There is no exposed tendon, capsule or bone. There are no signs of infection. Minimal serous drainage is present. Musculoskeletal/Orthopaedic: Patient has no pain to palpation of left foot ASSESSMENT: (T81.30XA) Wound dehiscence (primary encounter diagnosis) (E11.621, L97.512) Diabetic ulcer of toe of right foot associated with type 2 diabetes mellitus, with fat layer exposed (HCC) PLAN: 1. History and physical examination completed today. 2. Patient was examined and informed of current findings. On exam today, there is wound to right foot that shows increased granulation. There are no local signs of infection. I am going to hold wound vac today as he has an appointment tomorrow with infectious disease. I will place silvercel on foot today and he will be evaluated tomorrow. I foresee benefit in continuing wound vac for minimum of one more week and pending exam next week, possible switch to sandra or skin substitute. 3. I discussed performing delayed closure of wound in operating room. Patient has elected to continue with conservative management of this wound. 4. I do believe patient would benefit from hyperbarics. If he were to pursue hyperbarics, he would need discharged from rehab. 5. Patient satisfied with results. Will have patient f/u in 1 week WINSOME Young Observed: 04/22/2018 Status: COMPLETED Source: [place] 10:55 AM [facility] REPOSITORY Office Visit (PODIWS) RICHARD ROY ([id number]) 1945 M Date Time Provider Department 04/22/18 10:55 AM ARMINDA OBREGON During your visit today, we recorded the following information about you: Sweta Osborne MA 04/22/2018 11:28 AM Signed AMB ROOMING INTAKE FLOWSHEET DATA Risk Screening Do you have concerns about personal safety or safety in the home?: No Patient is here for 28 day post R hallux amputation 25 day s/p R closure with wound vac. Patient is taking antibotics 3 times daily. Patient states HH apply new dressing on R Hallux. care on Sat, Sat, and Saturday. Patient states no pain or NVFF. Patient is being compliant with NWB. Patient will use boot to walk to restroom. Arminda Obregon DPM 04/22/2018 11:28 AM Signed Follow up podiatric office visit for: Chief Complaint: This 72 year old who presents for follow up:right hallux amputation. Patient is 25 days s/p delayed closure of right foot wound. Following closure of wound, he developed post-op serous discharge so suture were removed to allow drainage. He has wound to medial aspect of right foot that is being treated with wound vac. He denies n/v/f/c. He is on antibiotics tid. He has no pain to right foot PAIN EVALUATION No data found. Hemoglobin A1C Date Value Ref Range Status 11/26/2017 8.1 (H) 4.3 - 5.6 % Final PCP: Dmitry Roberto III PAST MEDICAL HISTORY Diagnosis Date - Cholelithiasis 09/25/2013 - Diabetes mellitus with neurological manifestation (HCC) 09/08/2010 - Diverticulosis of colon (without mention of hemorrhage) - Encounter for monitoring coumadin therapy 09/23/2013 INR goal 2.5-3.5 - Essential hypertension, benign 10/28/2012 - Hyperlipidemia LDL goal < 100 04/01/2012 - Pulmonary embolus, right (HCC) 09/25/2013 - Status post aortic valve repair 2004 - Thoracic aneurysm without mention of rupture - Type 2 diabetes mellitus with stage 3 chronic kidney disease, with long-term current use of insulin (HCC) 06/20/2016 - Type II or unspecified type diabetes mellitus without mention of complication, not stated as uncontrolled Current Outpatient Prescriptions: melatonin 10 mg tab Take 10 mg by mouth at bedtime as needed. collagenase (SANTYL) ointment Apply 1 application to affected area once daily. metFORMIN ER (GLUCOPHAGE XR) 500 mg 24 hr tablet Take 2 tablets by mouth twice daily with meals. atorvastatin (LIPITOR) 10 mg tablet TAKE 1 TABLET BY MOUTH DAILY AT BEDTIME. FOR CHOLESTEROL. (Patient taking differently: Patient taking 40 mg daily) insulin detemir U-100 (LEVEMIR U-100 INSULIN) 100 unit/mL injection Inject 34 Units subcutaneously twice daily DX: E11.49, E11.22 losartan (COZAAR) 50 mg tablet Take 1 tablet by mouth once daily. blood sugar diagnostic ([employer] ULTRA TEST) test strip Test blood sugar(s) 5 times daily. Dx: E11.49. Insulin: Yes chlorthalidone (HYGROTON) 25 mg tablet TAKE 1 TABLET BY MOUTH ONCE DAILY. (Patient not taking: Reported on 04/10/2018) warfarin (COUMADIN) 5 mg tablet TAKE 5mg on Sundays, 10 mg on ALL OTHER DAYS dulaglutide (TRULICITY) 1.5 mg/0.5 mL pnij Inject 1.5 mg subcutaneously once each week. Inject once per week. Discard Pen After pioglitazone (ACTOS) 30 mg tablet Take 1 tablet by mouth once daily. (Patient not taking: Reported on 04/10/2018 ) metoprolol succinate ER (TOPROL XL) 200 mg 24 hr tablet TAKE 1 TABLET BY MOUTH ONCE DAILY. warfarin (COUMADIN) 5 mg tablet TAKE 1 TAB BY MOUTH ON SUNDAYS AND THURSDAYS, THEN TAKE 2 TABS BY MOUTH ONCE DAILY ON ALL OTHER DAYS aspirin, enteric coated (ASPIRIN LOW DOSE) 81 mg EC tablet Take 1 tablet by mouth once daily. Insulin Syringe-Needle U-100 (BD INSULIN SYRINGE UF II) 0.5 mL 31 gauge x 5/16 syrg Use 1 syringe for insulin injections five (5) times daily as directed. DX: 250.60 Insulin: Yes No current facility-administered medications for this visit. ALLERGIES No Known Allergies PAST SURGICAL HISTORY Procedure Laterality Date - COLONOSCOP W/ OR W/O [facility] SPEC 03/12/11 - DEBRIDE SKIN AND SUBQ TISSU 09-11-10 LEFT GROIN - DEBRIDEMENT OF SKIN, FULL THIC 09-12-10 LEFT GROIN - I AND D ABSCESS, SINGLE 09/08/10 IANDD abscess left groin - I AND D ABSCESS, SINGLE 10/23/10 IANDD medial to left groin wound - I AND D ABSCESS, SINGLE 01/22/11 IANDD LLQ superficial abscess - REM LESION TRUNK,ARM, LEG <0.5 CM 03/21/11 Exc. fibroepithelial polyp LLQ abd - REMOVAL DEVITAL TISSUE, ARTUR WND CHAPITO <20CM 11/22/10 Debridement posterior neck/IANDD LLQ abd - REVISION OF AORTIC VALVE 2004 Repair of Aortic Value/Thoracic anerusym repair Physical Exam: Constitutional: Pt is a well developed 72 year old male who is alert, oriented, cooperative and in no apparent distress. OBJECTIVE: NVSI unchanged from previous visit. Dermatological: Wound dehiscence is noted to right medial amputation site. There is increased granulation tissue. There is no undermining on exam. Wound measures 0.9 cm x 1.2 cm (width to length). There is no exposed tendon, capsule or bone. There are no signs of infection. Minimal serous drainage is present. Musculoskeletal/Orthopaedic: Patient has no pain to palpation of left foot ASSESSMENT: (T81.30XA) Wound dehiscence (primary encounter diagnosis) (E11.621, L97.512) Diabetic ulcer of toe of right foot associated with type 2 diabetes mellitus, with fat layer exposed (HCC) PLAN: 1. History and physical examination completed today. 2. Patient was examined and informed of current findings. On exam today, there is wound to right foot that shows increased granulation. There are no local signs of infection. I am going to hold wound vac today as he has an appointment tomorrow with infectious disease. I will place silvercel on foot today and he will be evaluated tomorrow. I foresee benefit in continuing wound vac for minimum of one more week and pending exam next week, possible switch to sandra or skin substitute. 3. I discussed performing delayed closure of wound in operating room. Patient has elected to continue with conservative management of this wound. 4. I do believe patient would benefit from hyperbarics. If he were to pursue hyperbarics, he would need discharged from rehab. 5. Patient satisfied with results. Will have patient f/u in 1 week WINSOME Young Ma 04/22/2018 11:25 AM Signed Resume wound vac. tomorrow 04/23/18 pending infectious disease appt. Patient has appt with Dr. Ndiaye, ID Arminda Obregon, DPM Sweta Osborne MA 04/22/2018 11:[address] Obregon, wound irrigated with normal saline betadine, applied Aquacell AG R surgical site. Covered with 4X4, yu, kerlix. Referring Provider: ARMINDA OBREGON [[id number]] Allergies As of Date: 04/22/2018 (No Known Allergies) Date Reviewed: 04/22/2018 Reviewed by: Sweta Osborne MA - Fully Assessed Reason for Visit: Surgical Followup [104] Primary Visit Diagnosis:Wound dehiscence [T81.30XA] Other Visit Diagnosis:Diabetic ulcer of toe of right foot associated with type 2 diabetes mellitus, with fat layer exposed (HCC) [E11.621, L97.512] Prescriptions as of 04/22/2018 Sig: MELATONIN 10 MG TABLET Take 10 mg by mouth at bedtim* COLLAGENASE CLOSTRIDIUM HISTO* Apply 1 application to affect* METFORMIN ER 500 MG TABLET,EX* Take 2 tablets by mouth twice* ATORVASTATIN 10 MG TABLET TAKE 1 TABLET BY MOUTH DAILY * Patient taking differently: Patient taking 40 mg daily INSULIN DETEMIR (U-100) 100 U* Inject 34 Units subcutaneousl* LOSARTAN 50 MG TABLET Take 1 tablet by mouth once d* BLOOD SUGAR DIAGNOSTIC STRIPS Test blood sugar(s) 5 times d* CHLORTHALIDONE 25 MG TABLET TAKE 1 TABLET BY MOUTH ONCE D* Patient not taking: Reported on 04/10/2018 WARFARIN 5 MG TABLET TAKE 5mg on Sundays, 10 mg on* DULAGLUTIDE 1.5 MG/0.5 ML SUB* Inject 1.5 mg subcutaneously * PIOGLITAZONE 30 MG TABLET Take 1 tablet by mouth once d* Patient not taking: Reported on 04/10/2018 METOPROLOL SUCCINATE ER 200 M* TAKE 1 TABLET BY MOUTH ONCE D* WARFARIN 5 MG TABLET TAKE 1 TAB BY MOUTH ON SATURDAY* ASPIRIN 81 MG TABLET,DELAYED * Take 1 tablet by mouth once d* INSULIN SYRINGE-NEEDLE U-100 * Use 1 syringe for insulin inj* Problem List As Of Date 04/22/2018 Noted Resolved Sciatica [M54.30] INVALID FOR*06/20/2016 Diabetes mellitus with neurological manifestati*INVALID FOR* Abscess [L02.91] INVALID FOR*06/20/2016 Non-healing surgical wound [T81.89XA] INVALID FOR*06/20/2016 Cellulitis and abscess [L03.90, L02.91] INVALID FOR*06/20/2016 Skin lesion [L98.9] INVALID FOR*06/20/2016 Hyperlipidemia with target LDL less than 100 [E*INVALID FOR* Essential hypertension, benign [I10] INVALID FOR* Morbid obesity with BMI of 40.0-44.9, adult (HC*INVALID FOR*08/19/2017 Encounter for monitoring coumadin therapy [Z51.*INVALID FOR* More... Pulmonary embolus, right (HCC) [I26.99] INVALID FOR*08/19/2017 Callus of foot [L84] INVALID FOR* Tinea of nail [B35.1] INVALID FOR* Cholelithiasis [K80.20] INVALID FOR* S/P aortic valve replacement [Z95.2] INVALID FOR*06/20/2016 Status post aortic valve repair [Z98.890] INVALID FOR* Type 2 diabetes mellitus with stage 3 chronic k*INVALID FOR* Obesity, Class II, BMI 35-39.9 [E66.9] INVALID FOR* Other instructions from your clinician: Resume wound vac. tomorrow 04/23/18 pending infectious disease appt. Patient has appt with Dr. Ndiaye, ID Arminda Obregon DPM Encounter Status:Closed by ARMINDA OBREGON DPM on 04/22/18 PROGRESS Observed: 04/22/2018 Status: COMPLETED Source: [place] 10:51 AM [facility] REPOSITORY [facility] ID: [id number] Author: Sweta Osborne MA Service: (none) Author Type: (none) Type: Progress Notes Filed: 04/22/2018 11:28 AM Note Text: AMB ROOMING INTAKE FLOWSHEET DATA Risk Screening Do you have concerns about personal safety or safety in the home?: No Patient is here for 28 day post R hallux amputation 25 day s/p R closure with wound vac. Patient is taking antibotics 3 times daily. Patient states HH apply new dressing on R Hallux. care on Sat, Sat, and Saturday. Patient states no pain or NVFF. Patient is being compliant with NWB. Patient will use boot to walk to restroom. PROGRESS Observed: 04/16/2018 Status: COMPLETED Source: [place] 7:16 AM [facility] REPOSITORY [facility] ID: [id number] Author: Arminda Obregon Service: (none) Author Type: Physician Type: Progress Notes Filed: 04/16/2018 7:24 AM Note Text: This 72 year old presents post op right hallux amputation. Patient is currently residing in rehab center. He is on IV antibiotics and being followed by ID. He has wound vac applied to central aspect of right amputation site. He denies n/v/f/c. He has 0/10 pain. He has no other complaints. Objective: Incision site is healed proximally and distally. The central aspect of incision has increased granulation tissue. Ulceration/wound dehiscence measures 0.7 cm x 0.4 cm. There is mild serous drainage. No purulence. No local signs of infection. Patient has no pain to palpation of right calf. Negative Badillo's test. Assessment: (Z98.890) Post-operative state (primary encounter diagnosis) (T81.30XA) Wound dehiscence (M86.9) Osteomyelitis of toe of right foot (HCC) Plan: Patient was examined today and informed of findings. On exam, the most distal and most proximal aspect of incision is now healed. Suture was removed as the suture was found to be loose and no longer necessary. The central aspect of incision does show reduction in size. There is very small amount of serous drainage present. There is mild swelling present. I discussed with patient delayed closure of wound via suture vs continuing wound vac. Because of mild drainage and presence of swelling, I favor wound vac vs delayed closure. My fear of attempting closure would be potential for dehiscence or infection. He is showing progress with wound vac and therefore, will continue. Will have nursing apply adaptic to incision followed by black foam and wound vac. I will have patient f/u in 1 week. Patient understands risk of infection until this wound fully heals. Discussed role of hyperbarics. This could be an option if he was discharged from rehab. Discussed further bone resection to achieve closure. He would like to salvage as much of his foot as possible so he has elected to continue with wound vac Arminda Obregon DPM PROTHROMBIN TIME W/INR Collected: 04/16/2018 Status: F Source: [place] 6:50 AM [facility] REPOSITORY Order Comment: 305 TYPE CODE TESTS RESULT OUT OF RANGE REFERENCE UNITS LAB L300.4150 11.7-14.9 SECONDS High PROTIME 15.3 LAB L300.4200 Normal INR 1.2 Performed By: #### L300.3900 #### [facility] [address] [place], [place], [id number] CBC W/DIFF, AUTOMATED Collected: 04/16/2018 Status: F Source: [place] 6:50 AM [facility] REPOSITORY Order Comment: 305 TYPE CODE TESTS RESULT OUT OF RANGE REFERENCE UNITS LAB L100.1000 4.4-11.0 K/mm3 Normal WBC 7.3 LAB L100.1200 4.6-6.2 M/mm3 Low RBC 3.76 LAB L100.1300 13.0-16.5 g/dl Low HGB 10.1 LAB L100.1400 40-54 % Low HCT 32.6 LAB L100.1500 80-94 fL Normal MCV 86.7 LAB L100.1600 27.0-32.0 pg Low MCH 26.9 LAB L100.1700 32-36 g/gl Low MCHC 31.0 LAB L100.1810 11.6-14.6 % Normal RDW CV 14.6 LAB L100.1820 35.1-43.9 fl High RDW SD 45.7 LAB L100.1900 150-450 K/mm3 Normal PLT 191 LAB L100.2000 6.2-12.0 fl Normal MPV 9.7 LAB L100.2100 47-70 % Normal NEUT% 61.4 LAB L100.2200 19-41 % Normal LY% 25.3 LAB L100.2300 0-10 % Normal MONO% 7.1 LAB L100.2400 0-5 % High EO% 5.6 LAB L100.2500 0-1 % Normal BASO% 0.3 LAB L100.2550 0.0-0.9 % Normal IM GRAN % 0.300 Result Comment: IG% - Immature Granulocytes (promyelocytes, myelocytes and metamyelocytes) > 1% indicates that a LEFT SHIFT is Present. LAB L100.2620 2.0-7.7 X10 3/uL Normal Absolute Neut 4.5 LAB L100.2720 0.83-4.51 X10 3/ul Normal Absolute Lymph 1.85 Performed By: #### L100.0100, L101.9900 #### [facility] [address] [place], [place], [address] ERYTHROCYTE SED RATE Collected: 04/16/2018 Status: F Source: [place] 6:50 AM [facility] REPOSITORY Order Comment: 305 TYPE CODE TESTS RESULT OUT OF RANGE REFERENCE UNITS LAB L102.0000 0-20 mm/hr High SED RATE 25 Performed By: #### L100.0100, L101.9900 #### [facility] [address] [place], [place], [address] BASIC METABOLIC Collected: 04/16/2018 Status: F Source: [place] PROFILE (BMP) 6:50 AM [facility] REPOSITORY Order Comment: 305 TYPE CODE TESTS RESULT OUT OF RANGE REFERENCE UNITS LAB L501.0100 74-106 mg/dL High GLU 129 Result Comment: Fasting Glucose result greater than or equal to 126 mg/dL suggests DIABETES MELLITUS per A.D.A. criteria. Please note revised GLUCOSE reference range effective 2017. LAB L501.1000 7-18 mg/dL High BUN 29 LAB L501.1100 0.70-1.30 mg/dL Normal CREAT,SERUM 1.17 Result Comment: The validity of the calculated GFR AND GFRAA in patients over 70 years has not been determined. Clinical correlation is essential. LAB L501.1110 >60 mL/min Normal EST GFR 65 Result Comment: Non- GFR Calc LAB L501.1115 >60 mL/min Normal EST GFR - AA 79 Result Comment: GFR Calc LAB L501.1300 10-20 RATIO High BUN/CRE 24.8 LAB L501.2200 8.5-10.1 mg/dL CA Normal 9.0 LAB L501.5300 136-145 mmol/L NA Normal 142 LAB L501.5600 3.5-5.1 mmol/L K Normal 4.0 LAB L501.5900 98-107 mmol/L CL Normal 104 LAB L501.6100 21.0-32.0 mmol/L Normal CO2 30.0 LAB L501.6200 5-15 Normal GAP 8 Performed By: #### L500.2500 #### [facility] [address] [place], [address] CNOV Observed: 04/15/2018 Status: COMPLETED Source: [place] 2:10 PM [facility] REPOSITORY Office Visit (PODIWS) RICHARD ROY ([id number]) 1945 M Date Time Provider Department 04/15/18 2:10 PM ARMINDA OBREGON PODIWS During your visit today, we recorded the following information about you: Blaire De La Torre RN 04/16/2018 7:24 AM Signed AMB ROOMING INTAKE FLOWSHEET DATA Risk Screening Do you have concerns about personal safety or safety in the home?: No Patient presents 21 days s/p R hallux amputation and 18 days s/p delayed closure, R. He has no complaints of pain. Denies n/v/f/c. He presents wearing post op shoe on R, full WB. He has not been discharged from [facility]. Wound vac continued however not on patient, he states it was acting up this morning and the nurses just said the heck with it since I have an appointment today. Blaire De La Torre RN 04/15/2018 2:39 PM Signed Continue wound vac to R foot. Apply adaptic on R foot wound followed by black foam and wound vac. 125 mmHg. Follow up in 1 week. Arminda Obregon DPM 04/16/2018 7:24 AM Signed This 72 year old presents post op right hallux amputation. Patient is currently residing in rehab center. He is on IV antibiotics and being followed by ID. He has wound vac applied to central aspect of right amputation site. He denies n/v/f/c. He has 0/10 pain. He has no other complaints. Objective: Incision site is healed proximally and distally. The central aspect of incision has increased granulation tissue. Ulceration/wound dehiscence measures 0.7 cm x 0.4 cm. There is mild serous drainage. No purulence. No local signs of infection. Patient has no pain to palpation of right calf. Negative Badillo's test. Assessment: (Z98.890) Post-operative state (primary encounter diagnosis) (T81.30XA) Wound dehiscence (M86.9) Osteomyelitis of toe of right foot (HCC) Plan: Patient was examined today and informed of findings. On exam, the most distal and most proximal aspect of incision is now healed. Suture was removed as the suture was found to be loose and no longer necessary. The central aspect of incision does show reduction in size. There is very small amount of serous drainage present. There is mild swelling present. I discussed with patient delayed closure of wound via suture vs continuing wound vac. Because of mild drainage and presence of swelling, I favor wound vac vs delayed closure. My fear of attempting closure would be potential for dehiscence or infection. He is showing progress with wound vac and therefore, will continue. Will have nursing apply adaptic to incision followed by black foam and wound vac. I will have patient f/u in 1 week. Patient understands risk of infection until this wound fully heals. Discussed role of hyperbarics. This could be an option if he was discharged from rehab. Discussed further bone resection to achieve closure. He would like to salvage as much of his foot as possible so he has elected to continue with wound vac Arminda Obregon DPM Referring Provider: ARMINDA OBREGON [[id number]] Allergies As of Date: 04/15/2018 (No Known Allergies) Date Reviewed: 04/15/2018 Reviewed by: Blaire De La Torre RN - Fully Assessed Reason for Visit: Surgical Followup [104] Primary Visit Diagnosis:Post-operative state [Z98.890] Other Visit Diagnoses:Wound dehiscence [T81.30XA] Osteomyelitis of toe of right foot (HCC) [M86.9] Prescriptions as of 04/15/2018 Sig: MELATONIN 10 MG TABLET Take 10 mg by mouth at bedtim* COLLAGENASE CLOSTRIDIUM HISTO* Apply 1 application to affect* METFORMIN ER 500 MG TABLET,EX* Take 2 tablets by mouth twice* INSULIN DETEMIR (U-100) 100 U* Inject 34 Units subcutaneousl* LOSARTAN 50 MG TABLET Take 1 tablet by mouth once d* BLOOD SUGAR DIAGNOSTIC STRIPS Test blood sugar(s) 5 times d* WARFARIN 5 MG TABLET TAKE 5mg on Sundays, 10 mg on* DULAGLUTIDE 1.5 MG/0.5 ML SUB* Inject 1.5 mg subcutaneously * METOPROLOL SUCCINATE ER 200 M* TAKE 1 TABLET BY MOUTH ONCE D* WARFARIN 5 MG TABLET TAKE 1 TAB BY MOUTH ON SATURDAY* ASPIRIN 81 MG TABLET,DELAYED * Take 1 tablet by mouth once d* INSULIN SYRINGE-NEEDLE U-100 * Use 1 syringe for insulin inj* ATORVASTATIN 10 MG TABLET TAKE 1 TABLET BY MOUTH DAILY * Patient taking differently: Patient taking 40 mg daily CHLORTHALIDONE 25 MG TABLET TAKE 1 TABLET BY MOUTH ONCE D* Patient not taking: Reported on 04/10/2018 PIOGLITAZONE 30 MG TABLET Take 1 tablet by mouth once d* Patient not taking: Reported on 04/10/2018 Problem List As Of Date 04/15/2018 Noted Resolved Sciatica [M54.30] INVALID FOR*06/20/2016 Diabetes mellitus with neurological manifestati*INVALID FOR* Abscess [L02.91] INVALID FOR*06/20/2016 Non-healing surgical wound [T81.89XA] INVALID FOR*06/20/2016 Cellulitis and abscess [L03.90, L02.91] INVALID FOR*06/20/2016 Skin lesion [L98.9] INVALID FOR*06/20/2016 Hyperlipidemia with target LDL less than 100 [E*INVALID FOR* Essential hypertension, benign [I10] INVALID FOR* Morbid obesity with BMI of 40.0-44.9, adult (HC*INVALID FOR*08/19/2017 Encounter for monitoring coumadin therapy [Z51.*INVALID FOR* More... Pulmonary embolus, right (HCC) [I26.99] INVALID FOR*08/19/2017 Callus of foot [L84] INVALID FOR* Tinea of nail [B35.1] INVALID FOR* Cholelithiasis [K80.20] INVALID FOR* S/P aortic valve replacement [Z95.2] INVALID FOR*06/20/2016 Status post aortic valve repair [Z98.890] INVALID FOR* Type 2 diabetes mellitus with stage 3 chronic k*INVALID FOR* Obesity, Class II, BMI 35-39.9 [E66.9] INVALID FOR* Other instructions from your clinician: Continue wound vac to R foot. Apply adaptic on R foot wound followed by black foam and wound vac. 125 mmHg. Follow up in 1 week. Encounter Status:Closed by ARMINDA OBREGON DPM on 04/16/18 PROGRESS Observed: 04/15/2018 Status: COMPLETED Source: [place] 2:02 PM [facility] REPOSITORY HNO ID: [id number] Author: Blaire De La Torre RN Service: (none) Author Type: (none) Type: Progress Notes Filed: 04/16/2018 7:24 AM Note Text: AMB ROOMING INTAKE FLOWSHEET DATA Risk Screening Do you have concerns about personal safety or safety in the home?: No Patient presents 21 days s/p R hallux amputation and 18 days s/p delayed closure, R. He has no complaints of pain. Denies n/v/f/c. He presents wearing post op shoe on R, full WB. He has not been discharged from [facility]. Wound vac continued however not on patient, he states it was acting up this morning and the nurses just said the heck with it since I have an appointment today. PROTHROMBIN TIME W/INR Collected: 04/14/2018 Status: F Source: [place] 5:10 AM [facility] REPOSITORY Order Comment: [id number] TYPE CODE TESTS RESULT OUT OF RANGE REFERENCE UNITS LAB L300.4150 11.7-14.9 SECONDS Normal PROTIME 14.7 LAB L300.4200 Normal INR 1.2 Performed By: #### L300.3900 #### [facility] [address] [place], [address] PROGRESS Observed: 04/10/2018 Status: COMPLETED Source: [place] 4:42 PM [facility] REPOSITORY HNO ID: [id number] Author: Crys Cabrera Ma Service: (none) Author Type: (none) Type: Progress Notes Filed: 04/10/2018 4:43 PM Note Text: Applied wet to dry dressing to R post op wound. Crys Cabrera Ma XR FOOT 3V AP/LAT/OBL Observed: 04/10/2018 Status: F Source: [place] RT 10:31 AM [facility] REPOSITORY * * *Final Report* * * DATE OF EXAM: Apr 10 2018 10:31AM WRX [id number] - XR FOOT 3V AP/LAT/OBL RT / PROCEDURE REASON: Post-operative state * * * * Physician Interpretation * * * * Clinical Information: Postop Three views of the right foot were obtained. Comparison: 03/19/2018 Interval resection of the first toe at the level of the metatarsophalangeal joint. There is no fracture or dislocation. Degenerative change tarsometatarsal joints. No lytic or blastic lesions identified. Prominent calcaneal spur. No soft tissue abnormalities are seen. IMPRESSION: Satisfactory postsurgical appearance. Degenerative changes. Pest Management Supervisor: PSCB Transcribe Date/Time: Apr 11 2018 8:38A Dictated by : MELANIA LINK MD This examination was interpreted and the report reviewed and electronically signed by: MELANIA LINK MD on Apr 11 2018 8:40AM EST [id number] Observed: 04/10/2018 Status: COMPLETED Source: [place] 10:22 AM [facility] REPOSITORY HNO ID: [id number] Author: Yahaira Juan (Rt) Coty Badillo Service: (none) Author Type: Piece Maker Type: Progress Notes Filed: 04/10/2018 10:31 AM Note Text: Radiology Service Progress Note PATIENT NAME: Richard Roy DATE OF SERVICE: April 10, 2018 TIME: 10:22 AM PATIENT IDENTITY VERIFICATION COMPLETED USING TWO (2) METHODS: Patient confirmed name verbally and Date of . PATIENT GENDER DATA: Male PATIENT RELEVANT IMPLANT DATA REVIEWED: Not Applicable RADIOLOGY DEPARTMENT: General X-ray: Exam(s) Completed: Lower Extremity X-Ray(s): Foot, Right: semi weight bearing PERIPHERAL IV DATA: Not applicable SIGNED BY: RT Gavin April 10, 2018 10:22 AM PROGRESS Observed: 04/10/2018 Status: COMPLETED Source: [place] 9:42 AM [facility] REPOSITORY HNO ID: [id number] Author: Arminda Obregon Service: (none) Author Type: Physician Type: Progress Notes Filed: 04/10/2018 12:12 PM Note Text: Arminda Obregon DPM Department of Podiatry [address] [facility] [place] [address] Dept: [phone] Dept DOS: 03/25/18 POD: 16 POV: 2 Surgical side: right hallux amputation DOS: 03/28/18 POD: 13 day POV: 2 Surgical side: Right, delayed closure This 72 year old presents for post op evaluation. Pain level: 0/10. Denies vomiting, Denies fever, Denies chills, Denies shortness of breath. Pain Control: n/a Weightbearing status: Partial Weight Bearing Objective: Incision site is well coapted proximally and distally. Centrally, there is full thickness wound opening that measures 1.2 cm x 0.4 cm. There is increased granulation tissue of central opening. No exposed tendon, capsule or bone. There is serous drainage but no purulence. No erythema noted to right foot. There are no signs of infection to right foot. No deep calf pain present Assessment: (Z98.890) Post-operative state (primary encounter diagnosis) (T81.30XA) Wound dehiscence Plan: Patient was examined and informed of current findings Distally and proximally, incision is healing nicely. Will leave suture in for 1-2 more weeks. There is central wound dehiscence. There is increased granulation tissue in base of wound. Debridement of macerated tissue was performed with tissue nippers. Very little macerated tissue present. There is some serous drainage present but no purulence. For this reason, I will continue with wound vac. If there was no serous fluid, I discussed closing with suture but I fear that if any serous fluid present, it could be source of wound complications. Patient agrees to continued wound vac. I am ok with his discharge from rehab if medically stable and antibiotics arranged. Discussed hyperbaric medicine. He would be candidate for hyperbarics if discharge. F/u in 1 week WINSOME Young Observed: 04/10/2018 Status: COMPLETED Source: [place] 9:40 AM [facility] REPOSITORY Office Visit (PODIWS) RICHARD ROY ([id number]) 1945 M Date Time Provider Department 04/10/18 9:40 AM ARMINDA OBREGON During your visit today, we recorded the following information about you: Arminda Obregon DPM 04/10/2018 12:12 PM Signed Arminda Obregon DPM Department of Podiatry [address] [place] [address] Dept: [phone] Dept DOS: 03/25/18 POD: 16 POV: 2 Surgical side: right hallux amputation DOS: 03/28/18 POD: 13 day POV: 2 Surgical side: Right, delayed closure This 72 year old presents for post op evaluation. Pain level: 0/10. Denies vomiting, Denies fever, Denies chills, Denies shortness of breath. Pain Control: n/a Weightbearing status: Partial Weight Bearing Objective: Incision site is well coapted proximally and distally. Centrally, there is full thickness wound opening that measures 1.2 cm x 0.4 cm. There is increased granulation tissue of central opening. No exposed tendon, capsule or bone. There is serous drainage but no purulence. No erythema noted to right foot. There are no signs of infection to right foot. No deep calf pain present Assessment: (Z98.890) Post-operative state (primary encounter diagnosis) (T81.30XA) Wound dehiscence Plan: Patient was examined and informed of current findings Distally and proximally, incision is healing nicely. Will leave suture in for 1-2 more weeks. There is central wound dehiscence. There is increased granulation tissue in base of wound. Debridement of macerated tissue was performed with tissue nippers. Very little macerated tissue present. There is some serous drainage present but no purulence. For this reason, I will continue with wound vac. If there was no serous fluid, I discussed closing with suture but I fear that if any serous fluid present, it could be source of wound complications. Patient agrees to continued wound vac. I am ok with his discharge from rehab if medically stable and antibiotics arranged. Discussed hyperbaric medicine. He would be candidate for hyperbarics if discharge. F/u in 1 week WINSOME Young Ma 04/10/2018 10:16 AM Signed Continue current wound vac orders. Follow up on 04/15/18 per WINSOME Gonzalez Ma 04/10/2018 4:43 PM Signed Applied wet to dry dressing to R post op wound. Crys Cabrera Ma Referring Provider: ARMINDA OBREGON [[id number]] Allergies As of Date: 04/10/2018 (No Known Allergies) Date Reviewed: 04/10/2018 Reviewed by: Blaire De La Torre RN - Fully Assessed Reason for Visit: Post Op [174] Primary Visit Diagnosis:Post-operative state [Z98.890] Other Visit Diagnosis:Wound dehiscence [T81.30XA] Order(s):XR FOOT GENERAL 3V AP/LAT/OBL RT [[id number]] Order #: [id number] FUTURE Prescriptions as of 04/10/2018 Sig: MELATONIN 10 MG TABLET Take 10 mg by mouth at bedtim* COLLAGENASE CLOSTRIDIUM HISTO* Apply 1 application to affect* METFORMIN ER 500 MG TABLET,EX* Take 2 tablets by mouth twice* ATORVASTATIN 10 MG TABLET TAKE 1 TABLET BY MOUTH DAILY * Patient taking differently: Patient taking 40 mg daily INSULIN DETEMIR (U-100) 100 U* Inject 34 Units subcutaneousl* LOSARTAN 50 MG TABLET Take 1 tablet by mouth once d* BLOOD SUGAR DIAGNOSTIC STRIPS Test blood sugar(s) 5 times d* WARFARIN 5 MG TABLET TAKE 5mg on Sundays, 10 mg on* DULAGLUTIDE 1.5 MG/0.5 ML SUB* Inject 1.5 mg subcutaneously * METOPROLOL SUCCINATE ER 200 M* TAKE 1 TABLET BY MOUTH ONCE D* WARFARIN 5 MG TABLET TAKE 1 TAB BY MOUTH ON SATURDAY* ASPIRIN 81 MG TABLET,DELAYED * Take 1 tablet by mouth once d* INSULIN SYRINGE-NEEDLE U-100 * Use 1 syringe for insulin inj* CHLORTHALIDONE 25 MG TABLET TAKE 1 TABLET BY MOUTH ONCE D* Patient not taking: Reported on 04/10/2018 PIOGLITAZONE 30 MG TABLET Take 1 tablet by mouth once d* Patient not taking: Reported on 04/10/2018 Problem List As Of Date 04/10/2018 Noted Resolved Sciatica [M54.30] INVALID FOR*06/20/2016 Diabetes mellitus with neurological manifestati*INVALID FOR* Abscess [L02.91] INVALID FOR*06/20/2016 Non-healing surgical wound [T81.89XA] INVALID FOR*06/20/2016 Cellulitis and abscess [L03.90, L02.91] INVALID FOR*06/20/2016 Skin lesion [L98.9] INVALID FOR*06/20/2016 Hyperlipidemia with target LDL less than 100 [E*INVALID FOR* Essential hypertension, benign [I10] INVALID FOR* Morbid obesity with BMI of 40.0-44.9, adult (HC*INVALID FOR*08/19/2017 Encounter for monitoring coumadin therapy [Z51.*INVALID FOR* More... Pulmonary embolus, right (HCC) [I26.99] INVALID FOR*08/19/2017 Callus of foot [L84] INVALID FOR* Tinea of nail [B35.1] INVALID FOR* Cholelithiasis [K80.20] INVALID FOR* S/P aortic valve replacement [Z95.2] INVALID FOR*06/20/2016 Status post aortic valve repair [Z98.890] INVALID FOR* Type 2 diabetes mellitus with stage 3 chronic k*INVALID FOR* Obesity, Class II, BMI 35-39.9 [E66.9] INVALID FOR* Other instructions from your clinician: Continue current wound vac orders. Follow up on 04/15/[address] Sabas DPM Encounter Status:Closed by ARMINDA OBREGON DPM on 04/10/18 BASIC METABOLIC Collected: 04/09/2018 Status: F Source: PATITO PROFILE (BMP) 6:40 AM [facility] REPOSITORY Order Comment: ROOM 305 TYPE CODE TESTS RESULT OUT OF RANGE REFERENCE UNITS LAB L501.0100 74-106 mg/dL High GLU 146 Result Comment: Fasting Glucose result greater than or equal to 126 mg/dL suggests DIABETES MELLITUS per A.D.A. criteria. Please note revised GLUCOSE reference range effective 2017. LAB L501.1000 7-18 mg/dL High BUN 31 LAB L501.1100 0.70-1.30 mg/dL Normal CREAT,SERUM 1.27 Result Comment: The validity of the calculated GFR AND GFRAA in patients over 70 years has not been determined. Clinical correlation is essential. LAB L501.1110 >60 mL/min Normal EST GFR 60 Result Comment: Non- GFR Calc LAB L501.1115 >60 mL/min Normal EST GFR - AA 72 Result Comment: GFR Calc LAB L501.1300 10-20 RATIO High BUN/CRE 24.4 LAB L501.2200 8.5-10.1 mg/dL CA Normal 9.0 LAB L501.5300 136-145 mmol/L NA Normal 143 LAB L501.5600 3.5-5.1 mmol/L K Normal 4.3 LAB L501.5900 98-107 mmol/L CL Normal 103 LAB L501.6100 21.0-32.0 mmol/L Normal CO2 32.0 LAB L501.6200 5-15 Normal GAP 8 Performed By: #### L500.2500 #### [facility] [address] [place], [place], [address] ERYTHROCYTE SED RATE Collected: 04/09/2018 Status: F Source: [place] 6:40 AM [facility] REPOSITORY Order Comment: ROOM 305 TYPE CODE TESTS RESULT OUT OF RANGE REFERENCE UNITS LAB L102.0000 0-20 mm/hr High SED RATE 38 Performed By: #### L101.9900, L100.0100 #### [facility] [address] [place], [address] CBC W/DIFF, AUTOMATED Collected: 04/09/2018 Status: F Source: [place] 6:40 AM [facility] REPOSITORY Order Comment: ROOM 305 TYPE CODE TESTS RESULT OUT OF RANGE REFERENCE UNITS LAB L100.1000 4.4-11.0 K/mm3 Normal WBC 9.2 LAB L100.1200 4.6-6.2 M/mm3 Low RBC 3.79 LAB L100.1300 13.0-16.5 g/dl Low HGB 10.2 LAB L100.1400 40-54 % Low HCT 33.0 LAB L100.1500 80-94 fL Normal MCV 87.1 LAB L100.1600 27.0-32.0 pg Low MCH 26.9 LAB L100.1700 32-36 g/gl Low MCHC 30.9 LAB L100.1810 11.6-14.6 % High RDW CV 14.7 LAB L100.1820 35.1-43.9 fl High RDW SD 46.5 LAB L100.1900 150-450 K/mm3 Normal PLT 299 LAB L100.2000 6.2-12.0 fl Normal MPV 9.6 LAB L100.2100 47-70 % Normal NEUT% 64.5 LAB L100.2200 19-41 % Normal LY% 24.3 LAB L100.2300 0-10 % Normal MONO% 5.7 LAB L100.2400 0-5 % Normal EO% 4.5 LAB L100.2500 0-1 % Normal BASO% 0.7 LAB L100.2550 0.0-0.9 % Normal IM GRAN % 0.300 Result Comment: IG% - Immature Granulocytes (promyelocytes, myelocytes and metamyelocytes) > 1% indicates that a LEFT SHIFT is Present. LAB L100.2620 2.0-7.7 X10 3/uL Normal Absolute Neut 5.9 LAB L100.2720 0.83-4.51 X10 3/ul Normal Absolute Lymph 2.23 Performed By: #### L101.9900, L100.0100 #### [facility] [address] [place], [place], [address] PROTHROMBIN TIME W/INR Collected: 04/09/2018 Status: F Source: [place] 6:40 AM [facility] REPOSITORY Order Comment: ROOM 305 TYPE CODE TESTS RESULT OUT OF RANGE REFERENCE UNITS LAB L300.4150 11.7-14.9 SECONDS Normal PROTIME 14.4 LAB L300.4200 Normal INR 1.1 Performed By: #### L300.3900 #### [facility] [address] [place], [address] DISCHARGE SUMMARY Observed: 04/04/2018 Status: F Source: [place] 6:30 PM [facility] REPOSITORY [facility] Medical Records Department [address] [place] [address] Discharge Summary 04/04/18 1811 MR#: [id number] Acct: [id number] Name: RICHARD ROY Irene Rep #: [id number] : 1945 72 From: Gabriel Giraldo DO PCP: Dmitry Roberto III, MD Status: DIS IN Y Location: [facility] [place] [id number] Discharge Date and Diagnosis Date of Admission: 03/24/18 Date of Discharge: 04/01/18 - Primary Discharge Diagnosis #1 severe sepsis secondary to methicillin sensitive staph aureus from osteomyelitis from a neuropathic diabetic foot infection in the right great toe present on admission #2 osteomyelitis of the right great toe with methicillin sensitive staph aureus #3 diabetic neuropathic foot infection right hallux methicillin sensitive staph aureus #4 type 2 diabetes-uncontrolled #5 hypertension #6 dehydration #7 Hypokalemia #8 diabetic neuropathy - Secondary Discharge Diagnosis Chronic Problems HLD (hyperlipidemia) (Chronic) 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 Patient has a chronic ulceration of his right great toe and had been seeing a seismometer operator for the past 3 weeks. Patient also complained that he developed a temperature 100.4. Workup in the emergency room showed an elevated white count at 17.3, BUN was 32, creatinine is 1.75, glucose is 271, lactic acid was 3.1. Right great toe x-ray showed possible osteomyelitis involving the undersurface of the first distal phalanx. Patient had wound cultures obtained in the emergency room, he was placed on IV Zosyn and IV vancomycin and given IV fluids. He was admitted to medical surgical floor 2 and seen in consultation by podiatry and infectious diseases. Cultures grew out methicillin sensitive staph aureus, patient was taken to surgery on 03/25/18 an amputation of the right hallux was performed. Patient was seen by PT and OT, it was felt that the patient would benefit from short-term placement in correction facility. On 04/01/18, patient was seen and examined felt to be in stable condition for transfer to correction facility for continued rehab and IV antibiotic treatment. Further note: Patient had no indication of acute kidney injury during his hospitalization but had evidence of dehydration. Home Medications: Medications to take at Discharge Metoprolol(XL)Succ [Toprol Xl (Beta Red)] 200 mg PO DAILY 09/16/13 Aspirin [Aspirin, Baby] 81 mg PO DAILY@0800 #30 tab.chew 09/19/13 Warfarin [Coumadin] 5 mg PO DAILY #30 tablet 09/19/13 Losartan Potassium 50 mg PO DAILY 03/24/18 Metformin HCl [Metformin HCl ER] 1,000 mg PO BID 03/24/18 Cefazolin 2 gm IV Q8 37 Days #111 vial 03/31/18 Acetaminophen [Tylenol Tablet] 650 mg PO Q6H PRN PRN tablet 04/01/18 Atorvastatin Calcium [Lipitor] 40 mg PO QHS tablet 04/01/18 Insulin Glargine [Lantus SoloStar Pen] 14 units SC DAILY pen 04/01/18 Melatonin 10 mg PO QHS PRN PRN tablet 04/01/18 Oxycodone [Oxyir] 5 mg PO Q6H PRN PRN 7 Days #28 tab 04/01/18 Following Prescrptions Were Given to Patient: Oxycodone [Oxyir] 5 mg PO Q6H PRN PRN 7 Days #28 tab PRN Reason: Pain Cefazolin 2 gm IV Q8 37 Days #111 vial Primary Care Physician: Dmitry Roberto III, MD [Primary Care Provider] - Please Follow Up With: Arminda Obregon DPM When: this Please Follow Up With: Smith Ndiaye MD When: in wound center in 3-4 weeks Disposition: Prison facility Minutes spent on discharge:: 34 Patient Condition:: Stable Medical Necessity - Tobacco Use Smoking Status: Never smoker Meaningful Use Info Meaningful Use Diagnoses (Choose all that apply): None applicable Code Visit Inpatient E AND M: 79952 Disch Hosp 04/04/18 1830 <Electronically signed by Gabriel Giraldo DO> Date Gabriel Giraldo DO Cosignjanessa Signature (if applicable): Date CC: Dmitry Roberto III, MD; Gabriel Giraldo DO Signed CNOV Observed: 04/03/2018 Status: COMPLETED Source: [place] 8:40 AM [facility] Office Visit (PODIWS) RICHARD ROY ([id number]) 1945 M Date Time Provider Department 04/03/18 8:40 AM ARMINDA OBREGON PODIWS During your visit today, we recorded the following information about you: Arminda Obregon DPM 04/03/2018 9:01 AM Signed Arminda Obregon DPM Department of Podiatry [address] [facility] [address] Dept: [phone] Dept DOS: 03/25/18 POD: 9 POV: 1 Surgical side: R hallux amputation DOS: 03/28/18 POD: 6 POV: 1 Surgical side: R hallux delayed closure. This 72 year old presents for post op evaluation Pain level: 0/10. Denies vomiting, Denies fever, Denies chills, Denies shortness of breath. Pain Control: n/a Weightbearing status: WB with forefoot relief shoe Post op dressing removed. Moderate serous drainage noted on inner dressing Reports that nursing at [facility] changed dressing yesterday morning. He is a diabetic, and blood sugar was checked this AM. Objective: Incision site is well coapted proximally and distally with central opening. There is serous drainage but no purulence. Central wound measures 1.3 cm x 0.4 cm x 0.4 cm. There is undermining of wound due to recent amputation. No erythema is noted. Patient has no pain to palpation of right calf. Negative Badillo's test. Assessment: (M86.9) Osteomyelitis of toe of right foot (HCC) (primary encounter diagnosis) (E11.621, L97.519) Diabetic ulcer of toe of right foot associated with type 2 diabetes mellitus, unspecified ulcer stage (HCC) (T81.30XA) Wound dehiscence Plan: Patient was examined and informed of current findings He is s/p hallux amputation. On exam, there is amputation of hallux with wound dehiscence of central incision. It should be noted that this wound dehiscence is 2nd to removing suture to allow post-op drainage. On exam, there is mild serous drainage but no purulence. There is no erythema of foot. Foot appears stable. Patient is on antibiotic and he will continue with this per id Today, wound was dressed with betadine and silvercel. I want to start wound vac to wound once approved. There is undermining in wound but this is due to recent amputation. I discussed placing suture across wound dehiscence but given serous drainage, I would rather have this close secondarily. Central wound was debrided today thru dermis and epidermis and subcutaneous tissue under sterile technique with tissue nippers. Bleeding present and controlled with pressure. Discussed further bone resection given positive culture on bone yet neg pathology. He wishes to hold on further debridements at this time. Continue with local wound care as above F/u in 1 week Briefly discussed role of hyperbarics while in hospital. Pending evaluation next week, this may still be an option. WINSOME Young Ma 04/03/2018 12:45 PM Addendum We will order a wound vac for R 1st MTPJ post op incision to have delivered to your facility. Once it arrives, please follow the below Wound Vac Orders. Until wound vac arrives, please do daily dressing changes consisting of the following: Betadine to incision site, cover with adaptic. Apply small piece of silver alginate to dehisced area of incision. Cover with 4x4, yu, kerlix, BERNIE compression. Once wound vac arrives: Apply betadine, adaptic, and any absorptive dressing to sutures. Apply black foam to central wound. OK to drape over incision light for seal. Vac applied at 125 mmHg continuously. Change qMWF. Date Arminda Obregon DPM Referring Provider: ARMINDA OBREGON [[id number]] Allergies As of Date: 04/03/2018 (No Known Allergies) Date Reviewed: 04/03/2018 Reviewed by: Crys Cabrera Ma - Fully Assessed Reason for Visit: Surgical Followup [104] Primary Visit Diagnosis:Osteomyelitis of toe of right foot (HCC) [M86.9] Other Visit Diagnoses:Diabetic ulcer of toe of right foot associated with type 2 diabetes mellitus, unspecified ulcer stage (HCC) [E11.621, L97.519] Wound dehiscence [T81.30XA] Prescriptions as of 04/03/2018 Sig: COLLAGENASE CLOSTRIDIUM HISTO* Apply 1 application to affect* METFORMIN ER 500 MG TABLET,EX* Take 2 tablets by mouth twice* ATORVASTATIN 10 MG TABLET TAKE 1 TABLET BY MOUTH DAILY * INSULIN DETEMIR (U-100) 100 U* Inject 34 Units subcutaneousl* LOSARTAN 50 MG TABLET Take 1 tablet by mouth once d* BLOOD SUGAR DIAGNOSTIC STRIPS Test blood sugar(s) 5 times d* CHLORTHALIDONE 25 MG TABLET TAKE 1 TABLET BY MOUTH ONCE D* WARFARIN 5 MG TABLET TAKE 5mg on Sundays, 10 mg on* DULAGLUTIDE 1.5 MG/0.5 ML SUB* Inject 1.5 mg subcutaneously * PIOGLITAZONE 30 MG TABLET Take 1 tablet by mouth once d* METOPROLOL SUCCINATE ER 200 M* TAKE 1 TABLET BY MOUTH ONCE D* WARFARIN 5 MG TABLET TAKE 1 TAB BY MOUTH ON SATURDAY* ASPIRIN 81 MG TABLET,DELAYED * Take 1 tablet by mouth once d* INSULIN SYRINGE-NEEDLE U-100 * Use 1 syringe for insulin inj* Problem List As Of Date 04/03/2018 Noted Resolved Sciatica [M54.30] INVALID FOR*06/20/2016 Diabetes mellitus with neurological manifestati*INVALID FOR* Abscess [L02.91] INVALID FOR*06/20/2016 Non-healing surgical wound [T81.89XA] INVALID FOR*06/20/2016 Cellulitis and abscess [L03.90, L02.91] INVALID FOR*06/20/2016 Skin lesion [L98.9] INVALID FOR*06/20/2016 Hyperlipidemia with target LDL less than 100 [E*INVALID FOR* Essential hypertension, benign [I10] INVALID FOR* Morbid obesity with BMI of 40.0-44.9, adult (HC*INVALID FOR*08/19/2017 Encounter for monitoring coumadin therapy [Z51.*INVALID FOR* More... Pulmonary embolus, right (HCC) [I26.99] INVALID FOR*08/19/2017 Callus of foot [L84] INVALID FOR* Tinea of nail [B35.1] INVALID FOR* Cholelithiasis [K80.20] INVALID FOR* S/P aortic valve replacement [Z95.2] INVALID FOR*06/20/2016 Status post aortic valve repair [Z98.890] INVALID FOR* Type 2 diabetes mellitus with stage 3 chronic k*INVALID FOR* Obesity, Class II, BMI 35-39.9 [E66.9] INVALID FOR* Other instructions from your clinician: We will order a wound vac for R 1st MTPJ post op incision to have delivered to your facility. Once it arrives, please follow the below Wound Vac Orders. Until wound vac arrives, please do daily dressing changes consisting of the following: Betadine to incision site, cover with adaptic. Apply small piece of silver alginate to dehisced area of incision. Cover with 4x4, yu, kerlix, BERNIE compression. Once wound vac arrives: Apply betadine, adaptic, and any absorptive dressing to sutures. Apply black foam to central wound. OK to drape over incision light for seal. Vac applied at 125 mmHg continuously. Change qMWF. Date Arminda Obregon DPM Encounter Status:Closed by ARMINDA OBREGON DPM on 04/03/18 PROGRESS Observed: 04/03/2018 Status: COMPLETED Source: [place] 8:29 AM [facility] REPOSITORY [facility] ID: [id number] Author: Arminda Obregon Service: (none) Author Type: Physician Type: Progress Notes Filed: 04/03/2018 9:01 AM Note Text: Arminda Obregon DPM Department of Podiatry [address] [facility] [address] Dept: [phone] Dept DOS: 03/25/18 POD: 9 POV: 1 Surgical side: R hallux amputation DOS: 03/28/18 POD: 6 POV: 1 Surgical side: R hallux delayed closure. This 72 year old presents for post op evaluation Pain level: 0/10. Denies vomiting, Denies fever, Denies chills, Denies shortness of breath. Pain Control: n/a Weightbearing status: WB with forefoot relief shoe Post op dressing removed. Moderate serous drainage noted on inner dressing Reports that nursing at [facility] changed dressing yesterday morning. He is a diabetic, and blood sugar was checked this AM. Objective: Incision site is well coapted proximally and distally with central opening. There is serous drainage but no purulence. Central wound measures 1.3 cm x 0.4 cm x 0.4 cm. There is undermining of wound due to recent amputation. No erythema is noted. Patient has no pain to palpation of right calf. Negative Badillo's test. Assessment: (M86.9) Osteomyelitis of toe of right foot ([facility]) (primary encounter diagnosis) (E11.621, L97.519) Diabetic ulcer of toe of right foot associated with type 2 diabetes mellitus, unspecified ulcer stage ([facility]) (T81.30XA) Wound dehiscence Plan: Patient was examined and informed of current findings He is s/p hallux amputation. On exam, there is amputation of hallux with wound dehiscence of central incision. It should be noted that this wound dehiscence is 2nd to removing suture to allow post-op drainage. On exam, there is mild serous drainage but no purulence. There is no erythema of foot. Foot appears stable. Patient is on antibiotic and he will continue with this per id Today, wound was dressed with betadine and silvercel. I want to start wound vac to wound once approved. There is undermining in wound but this is due to recent amputation. I discussed placing suture across wound dehiscence but given serous drainage, I would rather have this close secondarily. Central wound was debrided today thru dermis and epidermis and subcutaneous tissue under sterile technique with tissue nippers. Bleeding present and controlled with pressure. Discussed further bone resection given positive culture on bone yet neg pathology. He wishes to hold on further debridements at this time. Continue with local wound care as above F/u in 1 week Briefly discussed role of hyperbarics while in hospital. Pending evaluation next week, this may still be an option. Arminda Obregon DPM PROTHROMBIN TIME W/INR Collected: 04/02/2018 Status: F Source: [place] 4:05 PM [facility] REPOSITORY TYPE CODE TESTS RESULT OUT OF RANGE REFERENCE UNITS LAB L300.4150 11.7-14.9 SECONDS Normal PROTIME 14.7 LAB L300.4200 Normal INR 1.2 Performed By: #### L300.3900 #### [facility] [address] [place], [address] ERYTHROCYTE SED RATE Collected: 04/02/2018 Status: F Source: [place] 5:55 AM [facility] REPOSITORY Order Comment: ROOM 305 TYPE CODE TESTS RESULT OUT OF RANGE REFERENCE UNITS LAB L102.0000 0-20 mm/hr High SED RATE 35 Performed By: #### L101.9900, L100.0100 #### [facility] [address] [place], [address] CBC W/DIFF, AUTOMATED Collected: 04/02/2018 Status: C Source: [place] 5:55 AM [facility] REPOSITORY Order Comment: ROOM 305 TYPE CODE TESTS RESULT OUT OF RANGE REFERENCE UNITS LAB L100.1000 4.4-11.0 K/mm3 High WBC 11.4 LAB L100.1200 4.6-6.2 M/mm3 Low RBC 3.65 LAB L100.1300 13.0-16.5 g/dl Low HGB 9.9 LAB L100.1400 40-54 % Low HCT 31.7 LAB L100.1500 80-94 fL Normal MCV 86.8 LAB L100.1600 27.0-32.0 pg Normal MCH 27.1 LAB L100.1700 32-36 g/gl Low MCHC 31.2 LAB L100.1810 11.6-14.6 % Normal RDW CV 14.4 LAB L100.1820 35.1-43.9 fl High RDW SD 45.4 LAB L100.1900 150-450 K/mm3 Normal PLT 390 LAB L100.2000 6.2-12.0 fl Normal MPV 9.1 LAB L100.2100 47-70 % Normal NEUT% 69.2 LAB L100.2200 19-41 % Low LY% 18.5 LAB L100.2300 0-10 % Normal MONO% 6.0 LAB L100.2400 0-5 % Normal EO% 4.0 LAB L100.2500 0-1 % Normal BASO% 0.3 LAB L100.2550 0.0-0.9 % High IM GRAN % 2.000 Result Comment: IG% - Immature Granulocytes (promyelocytes, myelocytes and metamyelocytes) > 1% indicates that a LEFT SHIFT is Present. LAB L100.2620 2.0-7.7 X10 3/uL High Absolute Neut 7.9 LAB L100.2720 0.83-4.51 X10 3/ul Normal Absolute Lymph 2.10 LAB L100.9900 Normal PATH REV Reviewed Result Comment: Leukocytosis and Neutrophilic left shift. Normocytic anemia. Clinical correlation necessary. Evaristo Dela Cruz M.D. 04/02/18 AMENDED REPORT 04/02/18 1352 PATH REV previously reported as: November orin Performed By: #### L101.9900, L100.0100 #### [facility] [address] [place], [address] BASIC METABOLIC Collected: 04/02/2018 Status: F Source: [place] PROFILE ([facility]) 5:55 AM [facility] REPOSITORY Order Comment: ROOM 305 TYPE CODE TESTS RESULT OUT OF RANGE REFERENCE UNITS LAB L501.0100 74-106 mg/dL High GLU 129 Result Comment: Fasting Glucose result greater than or equal to 126 mg/dL suggests DIABETES MELLITUS per A.D.A. criteria. Please note revised GLUCOSE reference range effective 2017. LAB L501.1000 7-18 mg/dL High BUN 20 LAB L501.1100 0.70-1.30 mg/dL Normal CREAT,SERUM 1.22 Result Comment: The validity of the calculated GFR AND GFRAA in patients over 70 years has not been determined. Clinical correlation is essential. LAB L501.1110 >60 mL/min Normal EST GFR 62 Result Comment: Non- GFR Calc LAB L501.1115 >60 mL/min Normal EST GFR - AA 75 Result Comment: GFR Calc LAB L501.1300 10-20 RATIO Normal BUN/CRE 16.4 LAB L501.2200 8.5-10.1 mg/dL CA Normal 9.1 LAB L501.5300 136-145 mmol/L NA Normal 141 LAB L501.5600 3.5-5.1 mmol/L K Normal 4.6 LAB L501.5900 98-107 mmol/L CL Normal 103 LAB L501.6100 21.0-32.0 mmol/L Normal CO2 30.0 LAB L501.6200 5-15 Normal GAP 8 Performed By: #### L500.2500 #### [facility] [address] [place], [address] PROGRESS Observed: 04/01/2018 Status: COMPLETED Source: [place] 4:45 PM [facility] [place] REPOSITORY [facility] ID: [id number] Author: Blaire De La Torre RN Service: (none) Author Type: (none) Type: Progress Notes Filed: 04/01/2018 4:49 PM Note Text: OPERATIVE NOTATION FOR [facility] SURGICAL PROCEDURE. Richard Roy 1945 [id number] male PROCEDURE: 03/25/18: R hallux amputation 03/28/18: Delayed closure, R SURGEON: Arminda Obregon DPM HUC: None DEPT: WQ PROVIDER: Arminda Obregon DPM POS: [id number] DIAGNOSIS: No diagnosis found. ASA CLASS: 2 - mild FINDINGS: see pathology COMPLICATIONS: None PMHx - PAST MEDICAL HISTORY Diagnosis Date - Cholelithiasis 09/25/2013 - Diabetes mellitus with neurological manifestation (HCC) 09/08/2010 - Diverticulosis of colon (without mention of hemorrhage) - Encounter for monitoring coumadin therapy 09/23/2013 INR goal 2.5-3.5 - Essential hypertension, benign 10/28/2012 - Hyperlipidemia LDL goal < 100 04/01/2012 - Pulmonary embolus, right ([facility]) 09/25/2013 - Status post aortic valve repair 2004 - Thoracic aneurysm without mention of rupture - Type 2 diabetes mellitus with stage 3 chronic kidney disease, with long-term current use of insulin ([facility]) 06/20/2016 - Type II or unspecified type diabetes mellitus without mention of complication, not stated as uncontrolled COMORBIDITIES - None Post Op Occurrences - None Wound Classification - Clean Operative note dictated in the [facility] dictation system. TRANSFER TO [facility] Observed: 04/01/2018 Status: F Source: [facility] 11:47 AM [facility] REPOSITORY [facility] Medical Records Department [address] [place] [address] Transfer to Extended Care MR#: [id number] Acct: [id number] Name: RICHARD ROY Rep #: [id number] : 1945 72 From: Gabriel Giraldo DO PCP: Dmitry Roberto III, MD Status: ADM IN RICHARD ROY (Patient) (Health Ins. Claim No.) (Day of Discharge to Facility) Certification of patient admission REQUIRED AT TIME OF ADMISSION. I CERTIFY THAT POST-HOSPITAL F SERVICES ARE REQUIRED TO BE GIVEN ON AN IN-PATIENT BASIS BECAUSE OF THE ABOVE NAMED PATIENT'S NEED FOR JAIL CARE ON A CONTINUING BASIS FOR THE CONDITION(S) FOR WHICH HE/SHE WAS RECEIVING IN-PATIENT HOSPITAL SERVICES PRIOR TO HIS/HER TRANSFER TO THE F. 04/01/18 1147 <Electronically signed by Gabriel Giraldo DO> Date Gabriel Giraldo DO - Diet 03/28/18 17:11 Diabetic [Diet: Calorie Controlled] Is pt able to select menu?: Yes How many daily calories?: 1800 calorie - Routine Orders/Code Status Routine Lab Work: INR - weekly starting tomorrow, - - fingerstick blood sugars ACQHS- cover with Humalog SQ per result: 200-250: 5 units, 251-300: 8 units, 301-350: 12 units, 351-400: 15 units Code Status: Full Code - Wound(s) RIGHT BIG TOE Wound Type: Surgical Incision Dressing Change: Dry Sterile Dressing RT FOOT Wound Type: Surgical Incision Dressing Change: Dry Sterile Dressing - Therapies Weight Bearing: on right heel with surgical shoe - Problem/Diagnosis (1) Ulcer of right great toe due to diabetes mellitus Status: Acute Current Visit: Yes (2) Osteomyelitis Status: Acute Comment: right first toe Current Visit: Yes (3) HLD (hyperlipidemia) Status: Chronic Current Visit: No (4) DM II (diabetes mellitus, type II), controlled Status: Chronic Current Visit: No (5) HTN (hypertension) Status: Chronic Current Visit: No (6) Diabetic neuropathy Status: Acute Current Visit: Yes (7) Severe sepsis Status: Acute Current Visit: Yes - Allergies/Procedures Done in Hospital Allergies/Adverse Reactions: Allergies No Known Allergies Allergy (Verified 03/24/18 21:16) Procedures: - - right hallux amputation-9/11/18 - Type of Care/Length of Stay Estimated LOS: Convalescent Care Less Than 30 days Type of Care Needed: Skilled Rehab Potential: Good Prognosis: Good - Additional Orders/Day of Discharge Additional Orders: Dress foot daily with betadine, silvercel along incision, 4x4 along incision, dorsal foot and lateral 5th metatarsal followed by yu and compressive BERNIE. Use surgical shoe and is permitted to ambulate to his right heel H AND P will serve as current which was dated: 03/24/18 Day of Discharge: 04/01/18 - Dietary and Speech Recommendations Dietitian Recommendations/Changes: Rec 1 packet Luis BID for wound healing - Follow Up Care Primary Care Physician: Dmitry Roberto III, MD [Primary Care Provider] - Please Follow Up With: Arminda Obregon DPM When: this Please Follow Up With: Smith Ndiaye MD When: in wound center in 3-4 weeks 04/01/18 1147 <Electronically signed by Gabriel Giraldo DO> Date Gabriel Giraldo DO CC: WINSOME Obregon; Dmitry Roberto III, MD; Kee Mejia DPM; Chapin Hernández M.D.; Smith Ndiaye MD Signed BEDSIDE GLUCOSE Collected: 04/01/2018 Status: F Source: [place] 11:34 AM [facility] REPOSITORY TYPE CODE TESTS RESULT OUT OF REFERENCE UNITS RANGE LAB L501.080 70-110 mg/dL High BEDSIDE GLU 148 Result Comment: MANAGEMENT OF PATIENT CARE PER NURSING PROTOCOL Performed By: #### L501.080 #### [facility] Point of Care [address] [place], [place] [address] CBC W/DIFF, AUTOMATED Collected: 04/01/2018 Status: C Source: [place] 7:10 AM [facility] REPOSITORY TYPE CODE TESTS RESULT OUT OF RANGE REFERENCE UNITS LAB L100.1000 4.4-11.0 K/mm3 High WBC 11.4 LAB L100.1200 4.6-6.2 M/mm3 Low RBC 3.48 LAB L100.1300 13.0-16.5 g/dl Low HGB 9.4 LAB L100.1400 40-54 % Low HCT 30.1 LAB L100.1500 80-94 fL Normal MCV 86.5 LAB L100.1600 27.0-32.0 pg Normal MCH 27.0 LAB L100.1700 32-36 g/gl Low MCHC 31.2 LAB L100.1810 11.6-14.6 % Normal RDW CV 14.4 LAB L100.1820 35.1-43.9 fl High RDW SD 45.2 LAB L100.1900 150-450 K/mm3 Normal PLT 361 LAB L100.2000 6.2-12.0 fl Normal MPV 9.0 LAB L100.2100 47-70 % Normal NEUT% 69.3 LAB L100.2200 19-41 % Low LY% 18.1 LAB L100.2300 0-10 % Normal MONO% 5.8 LAB L100.2400 0-5 % Normal EO% 4.1 LAB L100.2500 0-1 % Normal BASO% 0.3 LAB L100.2550 0.0-0.9 % High IM GRAN % 2.400 Result Comment: IG% - Immature Granulocytes (promyelocytes, myelocytes and metamyelocytes) > 1% indicates that a LEFT SHIFT is Present. LAB L100.2620 2.0-7.7 X10 3/uL High Absolute Neut 7.9 LAB L100.2720 0.83-4.51 X10 3/ul Normal Absolute Lymph 2.06 LAB L100.4500 Normal SMEAR COMMENT COMMENT Result Comment: SLIDE SCANNED - RARE BLASTS SEEN, TO BE REVIEWED BY PATH. LAB L100.9900 Normal Reviewed PATH REV Result Comment: Leukocytosis and Neutrophilic left shift. Normocytic anemia. Clinical correlation necessary. Evaristo Dela Cruz M.D. 04/01/18 AMENDED REPORT 04/01/18 1339 PATH REV previously reported as: November orin Performed By: #### L100.0100 #### [facility] [place], [address] BEDSIDE GLUCOSE Collected: 04/01/2018 Status: F Source: [place] 6:54 [facility] REPOSITORY TYPE CODE TESTS RESULT OUT OF REFERENCE UNITS RANGE LAB L501.080 70-110 mg/dL High BEDSIDE GLU 132 Result Comment: MANAGEMENT OF PATIENT CARE PER NURSING PROTOCOL Performed By: #### L501.080 #### [facility] Point [place] [address] CNOP Observed: 04/01/2018 Status: COMPLETED Source: [place] 12:00 AM [facility] REPOSITORY Operative Note (Enc) (PODIWS) Progress Notes: Blaire De La Torre RN 04/01/2018 4:49 PM Signed OPERATIVE NOTATION FOR [facility] SURGICAL PROCEDURE. Richard Bonilla Kirill 1945 [id number] male PROCEDURE: 03/25/18: R hallux amputation 03/28/18: Delayed closure, R SURGEON: Arminda Obregon DPM HUC: None DEPT: WQ PROVIDER: Arminda Obregon DPM POS: [id number] DIAGNOSIS: No diagnosis found. ASA CLASS: 2 - mild FINDINGS: see pathology COMPLICATIONS: None PMHx - PAST MEDICAL HISTORY Diagnosis Date - Cholelithiasis 09/25/2013 - Diabetes mellitus with neurological manifestation ([facility]) 09/08/2010 - Diverticulosis of colon (without mention of hemorrhage) - Encounter for monitoring coumadin therapy 09/23/2013 INR goal 2.5-3.5 - Essential hypertension, benign 10/28/2012 - Hyperlipidemia LDL goal < 100 04/01/2012 - Pulmonary embolus, right (HCC) 09/25/2013 - Status post aortic valve repair 2004 - Thoracic aneurysm without mention of rupture - Type 2 diabetes mellitus with stage 3 chronic kidney disease, with long-term current use of insulin ([facility]) 06/20/2016 - Type II or unspecified type diabetes mellitus without mention of complication, not stated as uncontrolled COMORBIDITIES - None Post Op Occurrences - None Wound Classification - Clean Operative note dictated in the [facility] dictation system. Encounter Status:Closed by BLAIRE DE LA TORRE RN on 04/01/18 BEDSIDE GLUCOSE Collected: 03/31/2018 Status: F Source: [place] 9:20 PM [facility] REPOSITORY TYPE CODE TESTS RESULT OUT OF REFERENCE UNITS RANGE LAB L501.080 70-110 mg/dL High BEDSIDE GLU 156 Result Comment: MANAGEMENT OF PATIENT CARE PER NURSING PROTOCOL Performed By: #### L501.080 #### [facility] Point of Care [address] [place] [address] BEDSIDE GLUCOSE Collected: 03/31/2018 Status: F Source: [place] 5:07 PM [facility] REPOSITORY TYPE CODE TESTS RESULT OUT OF REFERENCE UNITS RANGE LAB L501.080 70-110 mg/dL High BEDSIDE GLU 120 Result Comment: MANAGEMENT OF PATIENT CARE PER NURSING PROTOCOL Performed By: #### L501.080 #### [facility] Point of Care [address] [place] [address] 12 LEAD ELECTROCARDIOGRAM Observed: 03/31/2018 Status: F Source: [place] 3:58 PM [facility] REPOSITORY [facility] Cardiovascular Services [address] [place] [address] 12 Lead EKG 03/28/18 0455 MR#: [id number] Acct: [id number] Name: RICHARD ROY Rep #: [id number] : 1945 72 From: Júnior Chandra MD Attending Dr: Yolie Nguyen M.D. Status: ADM IN Ordering Dr: Vernon Alanis MD Date: 03/28/18 Location: [facility] [place] Sex: M C Admitted: 03/24/18 Test Reason : AM Blood Pressure : / mmHG Vent. Rate : 061 BPM Atrial Rate : 061 BPM P-R Int : 172 ms QRS Dur : 144 ms QT Int : 500 ms P-R-T Axes : 049 -44 -06 degrees QTc Int : 503 ms Normal sinus rhythm with sinus arrhythmia Left axis deviation Right bundle branch block Abnormal ECG When compared with ECG of 17-SEP-2013 05:51, Inverted T waves have replaced nonspecific T wave abnormality in Inferior leads T wave inversion no longer evident in Anterior leads Confirmed by JÚNIOR CHNADRA MD ([id number]), graphic editor MARY INMAN ([id number]) on 03/31/2018 3:58:06 PM Referred By: Jesus Burnham Confirmed By:JÚNIOR CHANDRA MD 03/31/18 1558 Date Júnior Chandra MD CC: Vernon Alanis MD; Dmitry Roberto III, MD; Yolie Nguyen M.D.; Jesus Burnham MD Signed FOOT 2 VIEWS Observed: 03/31/2018 Status: F Source: [place] 2:32 PM [facility] REPOSITORY [facility] Imaging Services [address] [place], [place] [address] [address] Foot 2 Views MR#: [id number] Acct: [id number] Name: RICHARD ROY Rep #: [id number] : 1945 M 72 From: Ravindra Sierra MD PCP: Dmitry Roberto III, MD Status: ADM IN Study: Foot 2 Views Date of Exam: 03/31/18 Exam# [id number] Ordering Dr: Arminda Obregon DPM STUDY: X-RAY - RIGHT FOOT CLINICAL: Male, 72 years old. Diabetic foot ulceration. TECHNIQUE: AP and lateral view(s) of the foot. COMPARISON: Comparison is made with prior examination dated March 26, 2018. FINDINGS: There is a plantar calcaneal spur. Normal visualized subtalar, talonavicular, calcaneocuboid, tarsal and tarsometatarsal articulations. Normal metatarsi. The patient is status post amputation of the great toe. Normal second through fifth metatarsophalangeal joints. Normal interphalangeal joints and phalanges of the lesser toes. Postoperative soft tissue changes are seen. Since prior study, there has been a decrease in the amount of subcutaneous emphysematous changes. 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 Postoperative soft tissue changes. Plantar spur. Electronically Signed: Ravindra Sierra MD at 15:25 EDT Tel [phone], Service support , CC: WINSOME Obregon; Dmitry Roberto III, MD Pest Management Supervisor: Signed CBC W/DIFF, AUTOMATED Collected: 03/31/2018 Status: C Source: [place] 2:00 PM [facility] REPOSITORY TYPE CODE TESTS RESULT OUT OF RANGE REFERENCE UNITS LAB L100.1000 4.4-11.0 K/mm3 High WBC 12.2 LAB L100.1200 4.6-6.2 M/mm3 Low RBC 3.84 LAB L100.1300 13.0-16.5 g/dl Low HGB 10.2 LAB L100.1400 40-54 % Low HCT 33.3 LAB L100.1500 80-94 fL Normal MCV 86.7 LAB L100.1600 27.0-32.0 pg Low MCH 26.6 LAB L100.1700 32-36 g/gl Low MCHC 30.6 LAB L100.1810 11.6-14.6 % Normal RDW CV 14.6 LAB L100.1820 35.1-43.9 fl High RDW SD 45.5 LAB L100.1900 150-450 K/mm3 Normal PLT 413 LAB L100.2000 6.2-12.0 fl Normal MPV 8.9 LAB L100.3100 MANUAL DIFF Normal CELLS COUNTED 100 LAB L100.3200 47-70 % High 77 SEGS LAB L100.3800 19-41 % Low 15 LYMPH LAB L100.3900 0-10 % 7 Normal MONOCYTE LAB L100.4000 0-5 % 1 Normal EOS LAB L100.5500 ADEQ Normal PLT EST ADEQUATE LAB L100.7000 NORM C AND C NORMAL Normal RED CELL MORPH NORM C+C LAB L100.2620 2.0-7.7 X10 3/uL High Absolute Neut 9.4 LAB L100.2720 0.83-4.51 X10 3/ul Normal Absolute Lymph 1.83 LAB L100.9900 Normal PATH REV Reviewed Result Comment: Neutrophilic leukocytosis with left shift. Normocytic anemia. Clinical correlation necessary. Evaristo Dela Cruz M.D. 04/01/18 AMENDED REPORT 04/01/18 1037 PATH REV previously reported as: November Performed By: #### L100.0100 #### [facility] [address] [place], [address] BEDSIDE GLUCOSE Collected: 03/31/2018 Status: F Source: [place] 12:48 PM [facility] REPOSITORY TYPE CODE TESTS RESULT OUT OF REFERENCE UNITS RANGE LAB L501.080 70-110 mg/dL High BEDSIDE GLU 166 Result Comment: MANAGEMENT OF PATIENT CARE PER NURSING PROTOCOL Performed By: #### L501.080 #### [facility] Point of Care [address] [place] [address] BEDSIDE GLUCOSE Collected: 03/31/2018 Status: F Source: [place] 6:29 AM [facility] REPOSITORY TYPE CODE TESTS RESULT OUT OF REFERENCE UNITS RANGE LAB L501.080 70-110 mg/dL High BEDSIDE GLU 157 Result Comment: MANAGEMENT OF PATIENT CARE PER NURSING PROTOCOL Performed By: #### L501.080 #### [facility] Point of Care [address] [place] [address] BEDSIDE GLUCOSE Collected: 03/30/2018 Status: F Source: [place] 8:57 PM [facility] REPOSITORY TYPE CODE TESTS RESULT OUT OF REFERENCE UNITS RANGE LAB L501.080 70-110 mg/dL High BEDSIDE GLU 165 Result Comment: MANAGEMENT OF PATIENT CARE PER NURSING PROTOCOL Performed By: #### L501.080 #### [facility] Point of Care [address] [place] [address] BEDSIDE GLUCOSE Collected: 03/30/2018 Status: F Source: [place] 4:18 PM [facility] REPOSITORY TYPE CODE TESTS RESULT OUT OF REFERENCE UNITS RANGE LAB L501.080 70-110 mg/dL High BEDSIDE GLU 164 Result Comment: MANAGEMENT OF PATIENT CARE PER NURSING PROTOCOL Performed By: #### L501.080 #### [facility] Point of Care [address] [place] [address] BEDSIDE GLUCOSE Collected: 03/30/2018 Status: F Source: [place] 11:46 AM [facility] REPOSITORY TYPE CODE TESTS RESULT OUT OF REFERENCE UNITS RANGE LAB L501.080 70-110 mg/dL High BEDSIDE GLU 196 Result Comment: MANAGEMENT OF PATIENT CARE PER NURSING PROTOCOL Performed By: #### L501.080 #### [facility] Point of Care [address] [place], [place] [address] BEDSIDE GLUCOSE Collected: 03/30/2018 Status: F Source: [place] 6:24 AM [facility] REPOSITORY TYPE CODE TESTS RESULT OUT OF REFERENCE UNITS RANGE LAB L501.080 70-110 mg/dL High BEDSIDE GLU 147 Result Comment: MANAGEMENT OF PATIENT CARE PER NURSING PROTOCOL Performed By: #### L501.080 #### [facility] Point of Care [address] [place] [address] CBC W/DIFF, AUTOMATED Collected: 03/30/2018 Status: C Source: [place] 5:55 AM [facility] REPOSITORY TYPE CODE TESTS RESULT OUT OF RANGE REFERENCE UNITS LAB L100.1000 4.4-11.0 K/mm3 Normal WBC 9.8 LAB L100.1200 4.6-6.2 M/mm3 Low RBC 3.37 LAB L100.1300 13.0-16.5 g/dl Low HGB 9.1 LAB L100.1400 40-54 % Low HCT 29.3 LAB L100.1500 80-94 fL Normal MCV 86.9 LAB L100.1600 27.0-32.0 pg Normal MCH 27.0 LAB L100.1700 32-36 g/gl Low MCHC 31.1 LAB L100.1810 11.6-14.6 % Normal RDW CV 14.4 LAB L100.1820 35.1-43.9 fl High RDW SD 45.4 LAB L100.1900 150-450 K/mm3 Normal PLT 328 LAB L100.2000 6.2-12.0 fl Normal MPV 8.7 LAB L100.2100 47-70 % Normal NEUT% 66.1 LAB L100.2200 19-41 % Normal LY% 20.7 LAB L100.2300 0-10 % Normal MONO% 6.7 LAB L100.2400 0-5 % Normal EO% 4.1 LAB L100.2500 0-1 % Normal BASO% 0.2 LAB L100.2550 0.0-0.9 % High IM GRAN % 2.200 Result Comment: IG% - Immature Granulocytes (promyelocytes, myelocytes and metamyelocytes) > 1% indicates that a LEFT SHIFT is Present. LAB L100.2620 2.0-7.7 X10 3/uL Normal Absolute Neut 6.5 LAB L100.2720 0.83-4.51 X10 3/ul Normal Absolute Lymph 2.02 LAB L100.9900 Normal PATH REV Reviewed Result Comment: Neutrophilic left shift. Normocytic anemia. Clinical correlation necessary. Evaristo Dela Cruz M.D. 03/31/18 AMENDED REPORT 03/31/18 1444 PATH REV previously reported as: Corie sr Performed By: #### L100.0100 #### [facility] [address] [place], [address] COMPREHENSIVE METABOLIC Collected: 03/30/2018 Status: F Source: [facility] 5:55 AM [facility] REPOSITORY TYPE CODE TESTS RESULT OUT OF RANGE REFERENCE UNITS LAB L501.0100 74-106 mg/dL High GLU 153 Result Comment: Fasting Glucose result greater than or equal to 126 mg/dL suggests DIABETES MELLITUS per A.D.A. criteria. Please note revised GLUCOSE reference range effective 2017. LAB L501.1000 7-18 mg/dL Normal BUN 17 LAB L501.1100 0.70-1.30 mg/dL High CREAT,SERUM 1.33 Result Comment: The validity of the calculated GFR AND GFRAA in patients over 70 years has not been determined. Clinical correlation is essential. LAB L501.1110 >60 mL/min Low EST GFR 56 Result Comment: Non- GFR Calc LAB L501.1115 >60 mL/min Normal EST GFR - AA 68 Result Comment: GFR Calc LAB L501.1255 ml/min Normal Estimated CRCL 56.73 LAB L501.1300 10-20 RATIO Normal BUN/CRE 12.8 LAB L501.1500 6.4-8. g/dL Low 2 T PROT 5.9 LAB L501.1800 3.2-5. g/dL Low 0 ALB 2.2 LAB L501.1950 2.2-4. g/dL Normal 2 GLOB 3.7 LAB L501.2000 0.9-2. RATIO Low 4 A/G 0.6 LAB L501.2200 8.5-10 mg/dL Low .1 CA 8.1 LAB L501.4100 15-37 U/L Normal AST 25 LAB L501.4305 45-117 U/L Normal ALK P 65 LAB L501.4405 16-61 U/L Normal ALT 43 LAB L501.4600 0.20-1 mg/dL Normal .00 T BILI 0.30 LAB L501.5300 136-14 mmol/L Normal 5 NA 145 LAB L501.5600 3.5-5. mmol/L Normal 1 K 4.4 LAB L501.5900 98-107 mmol/L High CL 111 LAB L501.6100 21.0-3 mmol/L Normal 2.0 CO2 25.0 LAB L501.6200 5-15 Normal GAP 9 Performed By: #### L500.4050 #### [facility] [address] [place], [address] BEDSIDE GLUCOSE Collected: 03/29/2018 Status: F Source: [place] 10:01 PM [facility] REPOSITORY TYPE CODE TESTS RESULT OUT OF REFERENCE UNITS RANGE LAB L501.080 70-110 mg/dL High BEDSIDE GLU 165 Result Comment: MANAGEMENT OF PATIENT CARE PER NURSING PROTOCOL Performed By: #### L501.080 #### [facility] Point of Care [address] [place] [address] BEDSIDE GLUCOSE Collected: 03/29/2018 Status: F Source: [place] 4:41 PM [facility] REPOSITORY TYPE CODE TESTS RESULT OUT OF REFERENCE UNITS RANGE LAB L501.080 70-110 mg/dL High BEDSIDE GLU 147 Result Comment: MANAGEMENT OF PATIENT CARE PER NURSING PROTOCOL Performed By: #### L501.080 #### [facility] Point of Care [address] [place] [address] BEDSIDE GLUCOSE Collected: 03/29/2018 Status: F Source: [place] 11:41 AM [facility] REPOSITORY TYPE CODE TESTS RESULT OUT OF REFERENCE UNITS RANGE LAB L501.080 70-110 mg/dL High BEDSIDE GLU 195 Result Comment: MANAGEMENT OF PATIENT CARE PER NURSING PROTOCOL Performed By: #### L501.080 #### [facility] Point of Care [address] [place] [address] OPERATIVE REPORT Observed: 03/29/2018 Status: F Source: [place] 7:53 AM [facility] REPOSITORY [facility] Medical Records Department [address] [place] [address] Operative Report 03/28/186 MR#: [id number] Acct: [id number] Name: RICHARD ROY Rep #: [id number] : 1945 72 From: Arminda Obregon DPM PCP: Dmitry Roberto III, MD Status: ADM IN Y Location: [address] Report of Operation Date of Procedure: 03/25/18 Pre-Operative Diagnosis: open wound, right foot Post-Operative Diagnosis: open wound, right foot Surgery/Procedure Performed:: debridement of nonviable tissue with delayed primary closure and placement of drain Description of Surgical Findings:: good healthy granulation tissue s/p debridement. no active purulence or redness or signs of infection. 1st metatarsal appears healthy. dry cell sealer: None Type of Anesthesia:: Local MAC Specimen's removed: none Estimated Blood Loss (mL): <10 cc Description of Procedure: Patient is a 72 year old male with history of diabetes who developed ulceration of right hallux. Ulceration failed to improve and later developed infection last weekend. He was admitted to [facility] earlier this week where he underwent amputation of his right hallux. Cultures from his recent surgery have grown staph aureus of the phalanx but the metatarsal still has no growth. he has been treated with daily irrigation for the past 3 days. post-op xrays and mri reviewed with radiology show post-op findings with no residual infection. Clinically, patient infection/redness has resolved. There is mild darkening of distal medial incision which is expected to be debrided today. There is no active purulence of surgical wound. there is no drainage, purulence or signs of infection. majority of subcutaneous tissue is granular with good bleeding tissue. 1st metatarsal appears viable with good color and no signs of necrosis. I have discussed delayed closure of wound. I have informed patient that given the appearance of the distal medial incision, debridement of nonviable tissue will be performed. Patient informed that plan is to close the wound completely but in the event that closure cannot occur, further bone resection is possibility vs applying wound vac. Patient understands that if further bone is resected, it increases risk of transfer lesions. Patient informs me today that he would prefer to keep the head of the metatarsal. He understands that if closure is unable to occur, he would prefer wound vac over further bone resection as he does not want to risk developing transfer lesions. I had discussion with patient with his present and he again stressed that he does not wish to have further bone resected. I discussed risk of procedure today not limited to infection, pain, swelling, bleeding, failure to achieve complete closure thereby requiring wound vac, hematoma, wound dehiscence, need for wound vac at a later time, need for hyperbarics. patient understands that following procedure, he will require nwb to his right foot. if he walks on his foot, he is at risk of wound dehiscence. patient had INR checked upon admission where INR was 3.0. he has been off his coumadin but his INR has only reduced to 2.3 today. I discussed waiting to perform delayed closure until his INR lowers. I am concerned however that waiting until his inr lowers risks inability to achieve closure thereby requiring wound vac. Patient understands risks but would like to proceed with closure today. I informed patient that I will place drain in his foot for any post-op bleeding. Patient consents to proceed with delayed closure of foot wound today. Patient was transferred from pre-op holding area to operating room and placed on operating room table in supine position. he was placed under mac anesthesia. all prior suture was removed. the right foot was prepped and draped in the usual aseptic technique. A time out was performed making note of procedure and personal involved. Injection consisting of local anesthesia was injected to right 1st ray. Attention was then directed to right foot. The distal medial incision was found to be nonviable. A full thickness debridement of the distal plantar medial skin incision was performed. Next, the dorsal skin flap was debrided of nonviable tissue. Subcutaneous tissue was found to be granular with good healthy bleeding. Inspection of the open wound was performed. No pockets of abscess was encountered. The first metatarsal was found to be healthy and viable. Irrigation of the open wound was performed with 4800 cc of normal saline in pulse lavage. following irrigation, all remaining tissue appeared healthy. Cautery was performed and Dheeraj was also used to aide in hemostasis. all active bleeding stopped prior to closure. Closure was performed using 2-0 nylon thru skin and subcutaneous tissue using a deep simple interrupted technique. Nylon was only used for closure due to presence of prior infection and due to the appearance of deep subcutaneous tissue that was found to be very weak/delicate A tls drain was placed. counts were correct at time of closure. a post-op dressing consisting of betadine soaked adaptic, 4x4 guaze, yu and compressive bernie was applied to right foot. patient was transferred to pacu in stable condition. Drain will be removed in 2-3 days. patient is ok for discharge once picc line arranged. 03/29/18 0753 <Electronically signed by Arminda Obregon DPM> Date Arminda Obregon DPM CC: WINSOME Obregon; Dmitry Roberto III, MD; Kee Mejia DPM; Chapin Hernández M.D.; Jesus Burnham MD; Smith Ndiaye MD Signed OPERATIVE REPORT Observed: 03/29/2018 Status: F Source: [place] 7:49 AM [facility] Medical Records Department [address] [place] [address] Operative Report 03/25/182011 MR#: [id number] Acct: [id number] Name: RICHARD ROY Rep #: [id number] : 1945 72 From: Arminda Obregon DPM PCP: Dmitry Roberto III, MD Status: ADM IN Y Location: [facility] [id number] Report of Operation Date of Procedure: 03/25/18 Pre-Operative Diagnosis: diabetic foot infection with osteomyelitis, right hallux Post-Operative Diagnosis: diabetic foot infection with osteomyelitis of right hallux Surgery/Procedure Performed:: right hallux amputation Description of Surgical Findings:: there was extensive purulent and necrotic tissue at level of right hallux distal phalanx, right hallux proximal phalanx with necrotic changes extending to proximal phalanx base 1st metatarsal was found to be healthy. dry cell sealer: None Type of Anesthesia:: General Specimen's removed: right hallux distal phalanx for pathology and micro. right 1st metatarsal head for pathology and micro Estimated Blood Loss (mL): 20 cc Description of Procedure: Patient is a 72 year old male with diabetic neuropathy who is currently admitted to hospital for diabetic foot infection of his right hallux. He apparently developed this ulceration of right hallux some time in January but he did not seek any medical attention until March 06. He states he has had a lot going on and going to the doctor's for wound care was not something he was able to do. He was initially treated for the diabetic foot ulceration with santyl and was being followed weekly by me. xrays were ordered March 06 and last week at which time there was no evidence of osteomyelitis. I have recommended offloading with surgical boot but he has not used. I have discussed casting but he has opted against. He has been wearing his diabetic shoes. Last week, the wound was treated with sandra and forefoot wedge shoe. Over the past day, there has been redness developing to his right foot and there has been purulence to right hallux ipj. he presented to hospital where xrays were performed and demonstrated concern for osteomyelitis of right hallux distal phalanx. podiatry was consulted. I examined patient where I found large ulceration of right hallux ipj with extensive purulent drainage. preliminary cultures of right hallux ulceration show staph aureus. I ordered mri which demonstrated destructive changes of distal phalanx consistent for osteomyelitis. further, there was large abscess to plantar lateral hallux and there was marrow edema of right hallux proximal phalanx concerning for reactive changes vs osteomyelitis. I proposed surgical intervention to patient to include incision and drainage of right hallux with partial vs total amputation of right hallux. I informed patient that I will make intra-operative decision pending the appearance of bone. if the proximal phalanx appears healthy and the tissue around the hallux is viable, we can try and salvage as much of the toe as possible. If the proximal phalanx is nonviable and/or the tissue around the bone is nonviable, salvaging the proximal phalanx may be challenging. On exam, patient has large ulceration to the central hallux ipj and he now has new ulceration to lateral aspect of hallux ipj. I informed patient that the soft-tissue around the bone may be challenging to save the entire toe and therefore, entire amputation may be inevitable. Patient has given me permission to perform what is necessary to salvage his foot. patient understands the goal of this surgery is to eliminate the infection from his foot. He has given me permission to perform incision and drainage with amputation of toe. he has granted permission to perform total toe amputation if necessary. I have discussed risks of surgery not limited to infection, pain, swelling, bleeding, hematoma, need for further bone resection, possible transfer lesions to neighboring toes/metatarsal, loss of leg, loss of life. Patient understands that following surgery, his gait may be altered and he may require modification to his diabetic shoes/inserts. All questions have been answered. patient has consented to proceed with incision and drainage with right hallux amputation. patient was transferred from pre-op holding area to operating room and placed on operating room table in supine position. he was identified by name and procedure. the right lower extremity was draped with tourniquet but never inflated during case. Inspection of right hallux had 2 ulceration to hallux ipj with extensive purulent drainage. the right lower extremity was prepped and draped in usual aseptic technique. The patient was placed under general anesthesia and local injection with 1% lidocaine plain was given. Time-out was performed making note of procedure and personal involved. Attention was then directed to the right foot. a linear incision was performed at the medial aspect of right 1st mtpj. at the level of hallux ipj, a fish mouth incision was incorporated excising both plantar hallux ulceration. The incision was carried deep to level of bone. All bleeding tissue was cauterized as needed. There was extensive purulence along the lateral aspect of right hallux ipj and this purulence extended plantarly along the hallux ipj and also extended proximally just plantar to proximal phlanx. The distal phalanx at base of hallux ipj was found to be necrotic and nonviable. there was an accessory bone plantar to hallux ipj and this was disarticulated when excising the distal phalanx. The distal phalanx was found to be extremely soft, blackened, nonviable and had significant purulence when excised. A sample of the distal phalanx was sent for pathology and micro and labeled as pre-lavage distal phalanx. at the level of head of proximal phalanx, there was signficant nonviable soft-tissue and this was debrided with combination of rongeur and 15 blade. the head of the proximal phalanx appeared necrotic, soft, nonviable. using a sagittal saw, I initially resected the proximal phalanx to the proximal 1/3. I made resection orientated dorsal distal to plantar proximal. I irrigated the surgical site with 4000 cc of normal saline. After excising the distal 2/3 of the proximal phalanx, I found the remaining proximal phalanx to be soft, necrotic, with purulence expressed with resection. I found the tissue surrounding the mid shaft of proximal phalanx to be fibrotic slough and nidus for possible infection. At this time, given the appearance of intra-op soft-tissue, appearance of remaining proximal phalanx, and concern for further infection spreading proximally, I felt that leaving the remaining proximal phalanx would not be enough to eliminate this infection. I felt it was necesary to resect the entire toe to allow further debridement and elimination of nonviable tissue. I went and discussed my intra-operative findings with patient . I informed patient about the aggressive nature of this infection and the rationale for further debridement. I informed patient that Mr. Roy and I have had discussion regarding potential intra-op findings and if any need for further debridement was necessary, patient had expressed verbal consent. Patient was in favor of doing what was necessary. I returned to the operating room. After donning on new sterile gown and gloves, I redirected my attention to the remaining proximal phlanx. I dissected proximally where I found another pocket of purulence just lateral to the base of proximal phalanx extending to plantar hallux. I dissected the remaining proximal phalanx from the level of mtpj and passed the remaining bone to back table. I inspected the plantar tissue at level of mtpj. there was nonviable tissue at the plantar aspect of mtpj and this was dissected out. the plantar sesamoids were further dissected. the fibular sesamoid was completely excised and found to be bipartie. I inspected the remaining tissue at the level of metatarsal head and following debridement, I found good bleeding subcutaneous tissue, no purulence and the 1st metatarsal appeared healthy. I irrigated the surgical site with an additional 2000 cc of normal saline. clean gloves and instruments were then used. A sample of the 1st metatarsal was sent for pathology and micro. The distal aspect of the incision was closed with 2-0 nylon and the proximal aspect was packed open. sterile dressing consisting of adaptic, 4x4 yu, bernie was applied. counts were correct. patient was awakened and transferred to pacu where he care was directed to anesthesia department. I will perform daily wound irriagtion. I will plan on closing wound on Saturday. I do recommend placement to rehab at discharge. I will consult infectious disease to assist in management of possible bone infection. 03/29/18 0749 <Electronically signed by Arminda Obregon DPM> Date Arminda Obregon DPM CC: WINSOME Obregon; Dmitry Roberto III, MD; Kee Mejia DPM; Chapin Hernández M.D.; Jesus Burnham MD; Smith Ndiaye MD Signed BEDSIDE GLUCOSE Collected: 03/29/2018 Status: F Source: [place] 6:22 AM [facility] REPOSITORY TYPE CODE TESTS RESULT OUT OF REFERENCE UNITS RANGE LAB L501.080 70-110 mg/dL High BEDSIDE GLU 146 Result Comment: MANAGEMENT OF PATIENT CARE PER NURSING PROTOCOL Performed By: #### L501.080 #### [facility] Point of Care [address] [place] [address] BEDSIDE GLUCOSE Collected: 03/28/2018 Status: F Source: [place] 9:31 PM [facility] REPOSITORY TYPE CODE TESTS RESULT OUT OF REFERENCE UNITS RANGE LAB L501.080 70-110 mg/dL High BEDSIDE GLU 185 Result Comment: MANAGEMENT OF PATIENT CARE PER NURSING PROTOCOL Performed By: #### L501.080 #### [facility] Point of Care [address] [place] [address] BEDSIDE GLUCOSE Collected: 03/28/2018 Status: F Source: [place] 5:00 PM [facility] REPOSITORY TYPE CODE TESTS RESULT OUT OF REFERENCE UNITS RANGE LAB L501.080 70-110 mg/dL High BEDSIDE GLU 123 Result Comment: MANAGEMENT OF PATIENT CARE PER NURSING PROTOCOL Performed By: #### L501.080 #### [facility] Point of Care [address] [place] [address] BEDSIDE GLUCOSE Collected: 03/28/2018 Status: F Source: [place] 1:50 PM [facility] REPOSITORY TYPE CODE TESTS RESULT OUT OF REFERENCE UNITS RANGE LAB L501.080 70-110 mg/dL High BEDSIDE GLU 137 Result Comment: MANAGEMENT OF PATIENT CARE PER NURSING PROTOCOL Performed By: #### L501.080 #### [facility] Point of Care [address] [place] [address] BEDSIDE GLUCOSE Collected: 03/28/2018 Status: F Source: [place] 11:02 AM [facility] REPOSITORY TYPE CODE TESTS RESULT OUT OF REFERENCE UNITS RANGE LAB L501.080 70-110 mg/dL High BEDSIDE GLU 183 Result Comment: MANAGEMENT OF PATIENT CARE PER NURSING PROTOCOL Performed By: #### L501.080 #### [facility] Point of Care [address] [place] [address] BEDSIDE GLUCOSE Collected: 03/28/2018 Status: F Source: [place] 6:33 AM [facility] REPOSITORY TYPE CODE TESTS RESULT OUT OF REFERENCE UNITS RANGE LAB L501.080 70-110 mg/dL High BEDSIDE GLU 148 Result Comment: MANAGEMENT OF PATIENT CARE PER NURSING PROTOCOL Performed By: #### L501.080 #### [facility] Point of Care [address] [place] [address] CBC W/DIFF, AUTOMATED Collected: 03/28/2018 Status: F Source: [place] 5:15 AM [facility] REPOSITORY TYPE CODE TESTS RESULT OUT OF RANGE REFERENCE UNITS LAB L100.1000 4.4-11.0 K/mm3 Normal WBC 8.7 LAB L100.1200 4.6-6.2 M/mm3 Low RBC 3.39 LAB L100.1300 13.0-16.5 g/dl Low HGB 9.2 LAB L100.1400 40-54 % Low HCT 29.1 LAB L100.1500 80-94 fL Normal MCV 85.8 LAB L100.1600 27.0-32.0 pg Normal MCH 27.1 LAB L100.1700 32-36 g/gl Low MCHC 31.6 LAB L100.1810 11.6-14.6 % Normal RDW CV 14.1 LAB L100.1820 35.1-43.9 fl High RDW SD 44.6 LAB L100.1900 150-450 K/mm3 Normal PLT 317 LAB L100.2000 6.2-12.0 fl Normal MPV 8.7 LAB L100.2100 47-70 % Normal NEUT% 62.2 LAB L100.2200 19-41 % Normal LY% 22.6 LAB L100.2300 0-10 % Normal MONO% 8.7 LAB L100.2400 0-5 % Normal EO% 4.9 LAB L100.2500 0-1 % Normal BASO% 0.2 LAB L100.2550 0.0-0.9 % High IM GRAN % 1.400 Result Comment: IG% - Immature Granulocytes (promyelocytes, myelocytes and metamyelocytes) > 1% indicates that a LEFT SHIFT is Present. LAB L100.2620 2.0-7.7 X10 3/uL Normal Absolute Neut 5.4 LAB L100.2720 0.83-4.51 X10 3/ul Normal Absolute Lymph 1.97 Performed By: #### L100.0100 #### [facility] [address] [place], [place], [id number] PROTHROMBIN TIME W/INR Collected: 03/28/2018 Status: F Source: [place] 5:15 AM [facility] REPOSITORY TYPE CODE TESTS RESULT OUT OF RANGE REFERENCE UNITS LAB L300.4150 11.7-14.9 SECONDS High PROTIME 25.8 LAB L300.4200 Normal INR 2.3 Performed By: #### L300.3900, L300.4310 #### [facility] [address] [place], [place], [address] PARTIAL THROMBOPLAST Collected: 03/28/2018 Status: F Source: [place] TIME 5:15 AM [facility] REPOSITORY TYPE CODE TESTS RESULT OUT OF REFERENCE UNITS RANGE LAB L300.4310 24.1-36.2 Seconds High PTT 52.4 Performed By: #### L300.3900, L300.4310 #### [facility] [address] [place], [address] COMPREHENSIVE METABOLIC Collected: 03/28/2018 Status: F Source: [place] [facility] 5:15 AM [facility] REPOSITORY TYPE CODE TESTS RESULT OUT OF RANGE REFERENCE UNITS LAB L501.0100 74-106 mg/dL High GLU 157 Result Comment: Fasting Glucose result greater than or equal to 126 mg/dL suggests DIABETES MELLITUS per A.D.A. criteria. Please note revised GLUCOSE reference range effective 2017. LAB L501.1000 7-18 mg/dL High BUN 21 LAB L501.1100 0.70-1.30 mg/dL High CREAT,SERUM 1.42 Result Comment: The validity of the calculated GFR AND GFRAA in patients over 70 years has not been determined. Clinical correlation is essential. LAB L501.1110 >60 mL/min Low EST GFR 52 Result Comment: Non- GFR Calc LAB L501.1115 >60 mL/min Normal EST GFR - AA 63 Result Comment: GFR Calc LAB L501.1255 ml/min Normal Estimated CRCL 53.13 LAB L501.1300 10-20 RATIO Normal BUN/CRE 14.8 LAB L501.1500 6.4-8. g/dL Low 2 T PROT 6.2 LAB L501.1800 3.2-5. g/dL Low 0 ALB 2.3 LAB L501.1950 2.2-4. g/dL Normal 2 GLOB 3.9 LAB L501.2000 0.9-2. RATIO Low 4 A/G 0.6 LAB L501.2200 8.5-10 mg/dL Low .1 CA 8.3 LAB L501.4100 15-37 U/L Normal AST 32 LAB L501.4305 45-117 U/L Normal ALK P 62 LAB L501.4405 16-61 U/L Normal ALT 44 LAB L501.4600 0.20-1 mg/dL Normal .00 T BILI 0.40 LAB L501.5300 136-14 mmol/L High 5 NA 146 LAB L501.5600 3.5-5. mmol/L Normal 1 K 4.0 LAB L501.5900 98-107 mmol/L High CL 110 LAB L501.6100 21.0-3 mmol/L Normal 2.0 CO2 27.0 LAB L501.6200 5-15 Normal GAP 9 Performed By: #### L500.4050 #### [facility] [address] [place], [address] HEMOGLOBIN A1C Collected: 03/28/2018 Status: F Source: [place] 5:15 AM [facility] REPOSITORY TYPE CODE TESTS RESULT OUT OF RANGE REFERENCE UNITS LAB L501.9985 4.2-6.3 % High HGB A1C 8.1 Performed By: #### L501.9985 #### [facility] [address] [place], [address] BEDSIDE GLUCOSE Collected: 03/27/2018 Status: F Source: [place] 9:28 PM [facility] REPOSITORY TYPE CODE TESTS RESULT OUT OF REFERENCE UNITS RANGE LAB L501.080 70-110 mg/dL High BEDSIDE GLU 210 Result Comment: MANAGEMENT OF PATIENT CARE PER NURSING PROTOCOL Performed By: #### L501.080 #### [facility] Point of Care [address] [place] [address] BEDSIDE GLUCOSE Collected: 03/27/2018 Status: F Source: [place] 4:59 PM [facility] REPOSITORY TYPE CODE TESTS RESULT OUT OF REFERENCE UNITS RANGE LAB L501.080 70-110 mg/dL High BEDSIDE GLU 202 Result Comment: MANAGEMENT OF PATIENT CARE PER NURSING PROTOCOL Performed By: #### L501.080 #### [facility] Point of Care [address] [place] [address] BEDSIDE GLUCOSE Collected: 03/27/2018 Status: F Source: [place] 11:43 AM [facility] REPOSITORY TYPE CODE TESTS RESULT OUT OF REFERENCE UNITS RANGE LAB L501.080 70-110 mg/dL High BEDSIDE GLU 245 Result Comment: MANAGEMENT OF PATIENT CARE PER NURSING PROTOCOL Performed By: #### L501.080 #### [facility] Point of Care [address] [place] [address] Observed: 03/27/2018 Status: F Source: [place] CULTURE, BLOOD (WB) 11:14 AM [facility] REPOSITORY BC No growth in 5 days. Performed By: #### M200.1000 #### [facility] [address] [place], [address] CONSULTATION Observed: 03/27/2018 Status: F Source: [place] 8:58 AM [facility] REPOSITORY [facility] Medical Records Department [address] [place] [address] Consultation 03/27/18 0645 MR#: [id number] Acct: [id number] Name: RICHARD ROY Rep #: [id number] : 1945 72 From: Kee Mejia DPM PCP: Dmitry Roberto III, MD Status: ADM IN Y Location: [address] Reason for Consult Date of Consultation: 03/27/18 History of Present Illness: The patient is a 72 year old male with history of diabetes was seen for second opinion (consulted by Dr. Obregon) on patient's right foot. Patient had ulceration to the plantar right hallux and he developed significant infection, Cultures growing MSSA, also blood cultures with MSSA. MRI was consistent with osteomyelitis to the distal phalanx as well as proximal phalanx of the hallux, there was significant purulence and cellulitis present. Patient had elevated WBC. Patient was taken to the operating room for debridement and hallux amputation which was left open for drainage. Post operative xrays of the foot showed gas in the tissues, MRI also showed 2 pockets of gas at the amputation site. Patient's WBC returned to normal, and cellulitis resolved, and foot looking much better. Patient is afebrile. Dr. Obregon is tentatively planning to take patient for delayed primary closure on Saturday. Infectious Disease is following patient, and patient is on IV antibiotics at this time. Patient resting comfortably in bed. 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 Patient also had an MRSA infection in his abdomen before and had quite extensive debridement. Smoking Status: Never smoker - *Family History Maternal History Items: No pertinent history Review of Systems Constitutional: Denies: Chills, Fever Gastrointestinal: Denies: Nausea, Vomiting Patient Problems: Active and Suspected Problems Ulcer of right great toe due to diabetes mellitus (Acute) Osteomyelitis (Acute) Objective: Pre op MRI right foot reviewed: There is evidence of osteomyelitis to the distal and proximal phalanx of the hallux. Post op MRI right foot reviewed: There are two pockets of gas localized at the hallux amputation site c/w post op changes. Post op xrays right foot reviewed: s/p right hallux amputation with gas noted localized at the amputation site c/w normal post op changes. - Physical Exam General: Alert, Oriented x3, Cooperative, No apparent distress Extremities: Capillary Refill Less than 3 Seconds, Peripheral Pulses Normal, - - Right foot: Open hallux amputation, there are overall healthy viable skin flaps with some nonviable tissue to the medial aspect (which will likely need debrided on Saturday), the underlying 1st metatarsal bone is healthy, white and viable in appearance w/ intact viable cartilage, there is no noted necrosis, no fluctuance, no crepitus, no visible abscess, no purulence, no maloder present; no cellulitis noted to the foot and no other open ulcerations noted to the foot. Appears right foot edema is improved. Sensation is diminished c/w peripheral neuropathy. There is no evidence of acute ischemia to the right foot, and reportably patient has noninvasive lower extremity arterial studies this year which showed good arterial flow to the foot. Musculoskeletal: No Tenderness to Palpation of Joints or Extremities Psych/Mental Status: Appropriate, Alert and oriented to time, place, person, mood and affect Vital Signs Temp Pulse Resp BP Pulse Ox 98.9 F 58 L 18 117/59 L 95 03/27/18 03:52 03/27/18 03:52 03/27/18 03:52 03/27/18 03:52 03/27/18 03:52 Oxygen Flow Rate (L/min) 2 Oxygen Delivery Method Room Air Weight: 122.8 kg Body Mass Index (BMI) 35.9 Finger Stick Blood Glucose 165 Intake and Output for Last 24 Hours Intake Total 3961 / 3961 5053 / 5053 1843 / 1843 Output Total 450 / 450 1400 / 1400 Balance 3511 / 3511 3653 / 3653 1843 / 1843 Microbiology Past 72 Hours 03/25/18 16:52 Gram Stain - Final Laboratory Tests Past 24 Hrs WBC 7.7 RBC 3.26 L POC Glucose POC Glucose 181 H 224 H 187 H POC Glucose 240 H Assessment/Plan All Active Problems Ulcer of right great toe due to diabetes mellitus (Acute) Osteomyelitis (Acute) Vertigo (Acute) Cough (Acute) (dyspnea on exertion) (Acute) Pulmonary emboli (Acute) H/O aortic valve repair (Resolved) H/O thoracic aortic aneurysm repair (Resolved) Nausea (Resolved) PAF (paroxysmal atrial fibrillation) (Resolved) Cellulitis, Abscess, Osteomyelitis Right Hallux s/p open amputation Diabetes with peripheral neuropathy Bacteremia/Sepsis Reviewed diagnostic data, examined patient with Dr. Obregon and discussed case with him today. Patient is on antibiotic therapy per Infectious Disease service. Agree post operative gas in tissues as seen on the post operative xrays and MRI is consistent with air at the open amputation site, does not appear to be due to residual infection. Foot clinically significantly improved with hallux amputation/debridement. Agree with Dr. Obregon's plan of return to OR for debridement of open wound edges with delayed primary closure, it does not appear any further bone resection will be needed at this time as bone appears healthy and viable. If problems healing in future consider wound vac, wound center referral w/ possible hyperbaric oxygen therapy. Dr. Obregon will continue to follow and manage patient from podiatric standpoint, and I will see patient as needed. Thank you for consultation. 03/27/18 0858 <Electronically signed by Kee Mejia DPM> Date Kee Mejia DPM Cosigner Signature (if applicable): Date CC: WINSOME Obregon; Dmitry Roberto III, MD; Kee Mejia DPM; Chapin Hernández M.D.; Jesus Burnham MD; Smith Ndiaye MD Signed CBC W/DIFF, AUTOMATED Collected: 03/27/2018 Status: C Source: [place] 6:40 AM [facility] REPOSITORY TYPE CODE TESTS RESULT OUT OF RANGE REFERENCE UNITS LAB L100.1000 4.4-11.0 K/mm3 Normal WBC 7.7 LAB L100.1200 4.6-6.2 M/mm3 Low RBC 3.26 LAB L100.1300 13.0-16.5 g/dl Low HGB 9.2 LAB L100.1400 40-54 % Low HCT 28.1 LAB L100.1500 80-94 fL Normal MCV 86.2 LAB L100.1600 27.0-32.0 pg Normal MCH 28.2 LAB L100.1700 32-36 g/gl Normal MCHC 32.7 LAB L100.1810 11.6-14.6 % Normal RDW CV 13.6 LAB L100.1820 35.1-43.9 fl Normal RDW SD 41.9 LAB L100.1900 150-450 K/mm3 Normal PLT 298 LAB L100.2000 6.2-12.0 fl Normal MPV 8.6 LAB L100.2100 47-70 % Normal NEUT% 63.0 LAB L100.2200 19-41 % Normal LY% 19.4 LAB L100.2300 0-10 % High MONO% 10.3 LAB L100.2400 0-5 % Normal EO% 4.8 LAB L100.2500 0-1 % Normal BASO% 0.4 LAB L100.2550 0.0-0.9 % High IM GRAN % 2.100 Result Comment: IG% - Immature Granulocytes (promyelocytes, myelocytes and metamyelocytes) > 1% indicates that a LEFT SHIFT is Present. LAB L100.2620 2.0-7.7 X10 3/uL Normal Absolute Neut 4.9 LAB L100.2720 0.83-4.51 X10 3/ul Normal Absolute Lymph 1.49 LAB L100.9900 Normal PATH REV Reviewed Result Comment: Normocytic anemia. Clinical correlation necessary. Evaristo Dela Cruz M.D. 03/28/18 AMENDED REPORT 03/28/18 1015 PATH REV previously reported as: November Performed By: #### L100.0100 #### [facility] [address] [place], [address] BEDSIDE GLUCOSE Collected: 03/27/2018 Status: F Source: [place] 6:25 AM [facility] REPOSITORY TYPE CODE TESTS RESULT OUT OF REFERENCE UNITS RANGE LAB L501.080 70-110 mg/dL High BEDSIDE GLU 181 Result Comment: MANAGEMENT OF PATIENT CARE PER NURSING PROTOCOL Performed By: #### L501.080 #### [facility] Point of Care [address] [place] [address] BEDSIDE GLUCOSE Collected: 03/26/2018 Status: F Source: [place] 10:03 PM [facility] REPOSITORY TYPE CODE TESTS RESULT OUT OF REFERENCE UNITS RANGE LAB L501.080 70-110 mg/dL High BEDSIDE GLU 224 Result Comment: MANAGEMENT OF PATIENT CARE PER NURSING PROTOCOL Performed By: #### L501.080 #### [facility] Point of Care [address] [place] [address] BEDSIDE GLUCOSE Collected: 03/26/2018 Status: F Source: [place] 3:55 PM [facility] REPOSITORY TYPE CODE TESTS RESULT OUT OF REFERENCE UNITS RANGE LAB L501.080 70-110 mg/dL High BEDSIDE GLU 187 Result Comment: MANAGEMENT OF PATIENT CARE PER NURSING PROTOCOL Performed By: #### L501.080 #### [facility] Point of Care [address] [place] [address] ECHO, COMPLETE W/ Observed: 03/26/2018 Status: F Source: [place] CONTRAST 2:37 PM [facility] REPOSITORY [facility] Cardiovascular Services [address] [place] [address] Echo Complete 03/26/18 1320 MR#: [id number] Acct: [id number] Name: RICHARD ROY Rep #: [id number] : 1945 72 From: Christ Kang MD Attending Dr: Yolie Nguyen M.D. Status: ADM IN Ordering Dr: Smith Ndiaye MD Date: 03/26/18 Location: [facility] [place] Sex: Nelson Anthony Admitted: 03/24/18 Version 2 Reason For Study: Murmur, + MSSA Bacteremia Procedure This was a 2D Doppler, Color Flow transthoracic echocardiogram. Exam performed portable in patient room. Left Ventricle Mild concentric left ventricular hypertrophy. The estimated ejection fraction is 65 %. Stage 1 diastolic dysfunction. No regional wall motion abnormalities noted. Right Ventricle Normal size and thickness. Normal systolic function. Atria Normal left atrium. Normal right atrium. Normal atrial septum. Mitral Valve The mitral valve is structurally normal. No prolapse or stenosis seen. Mild (1+) mitral valve insufficiency. Tricuspid Valve Normal tricuspid valve. Mild (1+) tricuspid valve insufficiency. Right ventricular systolic pressure estimated to be 30 mmHg. Aortic Valve Trisinus/trileaflet aortic valve. Mild diffuse aortic valve thickening. Trivial aortic valve insufficiency. Bioprosthetic aortic valve. Stable appearing bioprosthetic aortic valve apparatus. Pulmonic Valve Normal pulmonic valve. Trivial eccentric pulmonic valve insufficiency. Great Vessels Normal aortic root. Normal arch. Normal inferior vena cava. Inferior vena cava collapse with sniff. Pericardium/Pleural No pericardial effusion. MMode/2D Measurements AND Calculations LVIDd: 5.0 cm IVSd: 1.4 cm LVOT diam: 2.3 cm LVIDs: 3.2 cm LVPWd: 1.4 cm LVOT area: 4.2 cm2 RVDd: 3.9 cm FS: 35.2 % Ao root diam: 3.2 cm LAV(MOD-bp): 68.1 ml LVAd ap4: 33.4 cm2 LA dimension: 4.7 cm LAV(MOD-bp) Indexed: 28.1 ml/m2 EDV(MOD-sp4): 105.3 ml LAV(MOD-sp2): 76.7 ml EDV(sp4-el): 107.3 ml LAV(MOD-sp4): 51.2 ml LVAs ap4: 17.1 cm2 ESV(MOD-sp4): 36.0 ml ESV(sp4-el): 34.2 ml EF(MOD-sp4): 65.9 % EF(sp4-el): 68.1 % SV(MOD-sp4): 69.4 ml SV(sp4-el): 73.1 ml LA A4 area: 18.3 cm2 RA A4 area: 16.1 cm2 Doppler Measurements AND Calculations MV E max mansoor: 106.8 cm/sec Lat Peak E' Mansoor: 9.6 cm/sec Med Peak E' Mansoor: 8.1 cm/sec MV A max mansoor: 82.7 cm/sec E/E' lat: 11.2 E/E' med: 13.2 MV E/A: 1.3 Ao V2 max: 186.4 cm/sec LV V1 max: 139.7 cm/sec SV(LVOT): 123.2 ml Ao max P.9 mmHg LV V1 max P.8 mmHg Ao V2 mean: 118.8 cm/sec LV V1 mean P.2 mmHg Ao mean P.4 mmHg LV V1 mean: 96.4 cm/sec Ao V2 VTI: 36.7 cm LV V1 VTI: 29.1 cm CONCHIS(I,D): 3.4 cm2 CONCHIS(V,D): 3.2 cm2 PA V2 max: 96.3 cm/sec TR max mansoor: 252.1 cm/sec TR max P.4 mmHg Interpretation Summary The estimated ejection fraction is 65 %. Stage 1 diastolic dysfunction. Mild (1+) mitral valve insufficiency. Mild (1+) tricuspid valve insufficiency. Right ventricular systolic pressure estimated to be 30 mmHg. Trivial aortic valve insufficiency. Compared to echo report dated 09/17/2013, LV function has remained the samre, LVH has gone from severe to mild. Stable appearing bioprosthetic aortic valve apparatus. The study was technically difficult. There is no evidence of a mass or vegetation. This does not rule out endocarditis. Ordering Physician: Smith Ndiaye Referring Physician: Dmitry Roberto Performed By: Crys Thomson, BATSHEVA, RVT 03/26/18 1436 Date Christ Kang MD CC: Dmitry Roberto III, MD; Yolie Nguyen M.D.; Jesus Burnham MD; Smith Ndiaye MD Date Dictated: 03/26/18 1320 Date Transcribed: 03/26/18 1435 Pest Management Supervisor: Signed CONSULTATION Observed: 03/26/2018 Status: F Source: [place] 12:10 PM [facility] REPOSITORY [facility] Medical Records Department [address] [place] [address] Consultation 03/26/18 1205 MR#: [id number] Acct: [id number] Name: RICHARD ROY Rep #: [id number] : 1945 72 From: Smith Ndiaye MD PCP: Dmitry Roberto III, MD Status: ADM IN Y Location: [facility] [place] [id number] Problem List (1) Osteomyelitis Status: Acute Qualifiers: Osteomyelitis type: unspecified type Osteomyelitis location: foot Laterality: right Qualified Code(s): M86.9 - Osteomyelitis, unspecified Reason for Consult: bacteremia Consulted by: Dr. Nguyen History of Present Illness: The patient is a 72 year old M with DM neuropathy presented with worsening R 1st toe redness, swelling, pain, purulent drainage, and fever/chills. Developed ulcer on R 1st toe about a month ago, no known trauma. Followed with podiatry, no recent outpt abx, no prior h/o staph infection. Foot worsened acutely over few days prior to presentation to ED 03/24. Had redness going up foot. MRI showed osteo, taken to OR 03/[address] Obregon for toe amputation. Bcx now with mssa. On vanc/zosyn. Feeling better. No new joint/back pain. Full ROS performed and neg except as noted above. 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) DM II (diabetes mellitus, type II), controlled (Chronic) HTN (hypertension) (Chronic) Allergies/Adverse Reactions: Allergies No Known Allergies Allergy (Verified 03/24/18 21:16) Home Medications: Ambulatory Orders Medication Instructions Recorded Metoprolol(XL)Succ [Toprol Xl 200 mg PO DAILY 03/05/14 (Beta Red)] Aspirin [Aspirin, Baby] 81 mg PO DAILY@0800 #30 tab.chew 09/19/13 - Social History Tobacco Use: non-smoker Vital Signs Temp Pulse Resp BP Pulse Ox 98.7 F 70 18 112/71 98 03/26/18 08:00 03/26/18 10:27 03/26/18 08:00 03/26/18 08:00 03/26/18 08:00 Oxygen Flow Rate (L/min) 2 Oxygen Delivery Method Room Air Weight: 122.8 kg Body Mass Index (BMI) 35.9 Finger Stick Blood Glucose 165 Microbiology Past 72 Hours 03/25/18 16:52 Gram Stain - Final Laboratory Tests Past 24 Hrs WBC 10.6 RBC 3.53 L Hgb 9.5 L Hct 29.9 L MCV 84.7 MCH 26.9 L MCHC 31.8 L RDW 13.8 - Other Studies Radiology: [] reviewed Other Studies: [] Route of nutrition/ use of supplements: [] Nutritional Intake: [] IV Site: [] Rodrigues Catheter: [] - Physical Exam General: Alert, Oriented x3, Cooperative HEENT: Atraumatic, PERRLA, EOMI Neck: Supple, No Nodes Lungs: Clear to auscultation, Normal air movement Cardiovascular: Regular rate, Regular Rhythm, Murmur Abdomen: Soft, Non Tender, Non-Distended Extremities: No edema Skin: Incision - R foot wrapped, - - splinter hemorrhage on R thumb IV Site: Peripheral, without redness Musculoskeletal: No Tenderness to Palpation of Joints or Extremities - no back or joint pain Neurological: Cranial nerves II-XII grossly intact - Assessment/Plan Antibiotics: [] Assessment/Plan: [] Active and Suspected Problems Ulcer of right great toe due to diabetes mellitus (Acute) Osteomyelitis (Acute) severe sepsis (fever, leukocytosis, ANTHONY, lactic acidosis) due to MSSA bacteremia from R 1st toe osteo - MRI with ? involvement of 1st phalanx. Now s/p toe amp by Dr. Obregon 03/25. Has soft murmur at LUSB. No foreign material in his body. Will repeat bcx, check TTE, and stop vanc. Cont zosyn. Initial wound cx now also showing GNR. Will follow, thank you. 03/26/18 1210 <Electronically signed by Smith Ndiaye MD> Date Smith Grant Signature (if applicable): Date CC: WINSOME Obregon; Dmitry Roberto III, MD; Chapin Hernández M.D.; Jesus Burnham MD; Smith Ndiaye MD Signed LOWER EXT/NO JT/W/O Observed: 03/26/2018 Status: F Source: [place] 12:02 PM [facility] REPOSITORY [facility] Imaging Services [address] [place], [place] [address] [address] Lower Ext/No Jt/w/o MR#: [id number] Acct: [id number] Name: RICHARD ROY Rep #: [id number] : 1945 M 72 From: Tyler Neal MD PCP: Dmitry Roberto III, MD Status: ADM IN Study: Lower Ext/No Jt/w/o Date of Exam: 03/26/18 Exam# [id number] Ordering Dr: Arminda Obregon DPM ADDENDUM by Dandy Vera MD on 03/26/18 at 1830 MRI/Lower Ext/No Jt/w/o 03/26/18 1837 Date cc: WINSOME Obregon; Dmitry Roberto III, MD * Signed ADDENDUM by Dandy Vera MD on 03/26/18 at 1830 ADDENDUM Air and small amount of fluid in the soft tissues occupying the region of the amputated osseous structures of the first toe is consistent with a recent postoperative status and amputation of the phalanges. There is wound extending to the skin with subcutaneous edema. Results discussed with Electronically Signed: Dandy Vera MD at 18:30 EDT , Service support , 03/26/18 1830 Date cc: WINSOME Obregon; Dmitry Roberto III, MD * Signed STUDY: MRI RIGHT FOREFOOT WITHOUT CONTRAST REASON FOR EXAM: Amputation right hallux 03/25/2018, soft tissue gas on radiographs. TECHNIQUE: Standardized fat and water weighted pulse sequences were obtained in all 3 orthogonal planes. COMPARISON: MRI images 03/25/2018 and radiographs 03/26/2018. FINDINGS: There is interval development of amputation at the level the first metatarsophalangeal joint. Normal first metatarsal. There is a postoperative fluid collection/edema, at the amputation site with 2 pockets of postoperative gas (T2 series 4 images 9- 11; T2 sagittal images 17, 18), the larger pocket measuring 1.3 cm in length. There is edema in the subcutis adipose space MRI/Lower Ext/No Jt/w/o IMPRESSION: Amputation of the hallux with postoperative fluid collection/hematoma containing postoperative pockets of gas at the amputation site. Electronically Signed: Tyler Neal MD at 15:34 EDT Tel , Service support , CC: WINSOME Obregon; Dmitry Roberto III, MD Pest Management Supervisor: Signed BEDSIDE GLUCOSE Collected: 03/26/2018 Status: F Source: [place] 11:30 AM [facility] REPOSITORY TYPE CODE TESTS RESULT OUT OF REFERENCE UNITS RANGE LAB L501.080 70-110 mg/dL High BEDSIDE GLU 240 Result Comment: MANAGEMENT OF PATIENT CARE PER NURSING PROTOCOL Performed By: #### L501.080 #### [facility] Point of Care [address] [place] [address] Observed: 03/26/2018 Status: F Source: [place] CULTURE, BLOOD (WB) 10:04 AM [facility] REPOSITORY BC No growth in 5 days. Performed By: #### M200.1000 #### [facility] [address] [place], [address] FOOT MIN 3 VIEWS Observed: 03/26/2018 Status: F Source: [place] 8:23 AM [facility] REPOSITORY [facility] Imaging Services [address] [facility] [place] [address] Foot min 3 Views MR#: [id number] Acct: [id number] Name: RICHARD ROY Rep #: [id number] : 1945 M 72 From: Tyler Neal MD PCP: Dmitry Roberto III, MD Status: ADM IN Study: Foot min 3 Views Date of Exam: 03/26/18 Exam# [id number] Ordering Dr: Arminda Obregon DPM STUDY: X-RAY - RIGHT FOOT CLINICAL: Infection. TECHNIQUE: 3 view(s) of the foot. COMPARISON: Radiographs 03/25/2018. FINDINGS: There is a plantar calcaneal enthesophyte. Normal visualized subtalar, talonavicular, calcaneocuboid, tarsal and tarsometatarsal articulations. Normal metatarsi without erosion of the first metatarsal. 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 Normal second through fifth metatarsophalangeal joints. Normal interphalangeal joints and phalanges of the lesser toes. There are swelling and soft tissue gas at the recent amputation site. RAD/Foot min 3 Views IMPRESSION: Status post amputation of the first digit the level of the metatarsophalangeal joint. Electronically Signed: Tyler Neal MD at 10:54 EDT Tel , Service support , CC: WINSOME Obregon; Dmitry Roberto III, MD Pest Management Supervisor: Signed BEDSIDE GLUCOSE Collected: 03/26/2018 Status: F Source: [place] 6:36 AM [facility] REPOSITORY TYPE CODE TESTS RESULT OUT OF REFERENCE UNITS RANGE LAB L501.080 70-110 mg/dL High BEDSIDE GLU 188 Result Comment: MANAGEMENT OF PATIENT CARE PER NURSING PROTOCOL Performed By: #### L501.080 #### [facility] Point of Care [address] [place], [place] [address] CBC W/DIFF, AUTOMATED Collected: 03/26/2018 Status: F Source: [place] 6:10 AM [facility] REPOSITORY TYPE CODE TESTS RESULT OUT OF RANGE REFERENCE UNITS LAB L100.1000 4.4-11.0 K/mm3 Normal WBC 10.6 LAB L100.1200 4.6-6.2 M/mm3 Low RBC 3.53 LAB L100.1300 13.0-16.5 g/dl Low HGB 9.5 LAB L100.1400 40-54 % Low HCT 29.9 LAB L100.1500 80-94 fL Normal MCV 84.7 LAB L100.1600 27.0-32.0 pg Low MCH 26.9 LAB L100.1700 32-36 g/gl Low MCHC 31.8 LAB L100.1810 11.6-14.6 % Normal RDW CV 13.8 LAB L100.1820 35.1-43.9 fl Normal RDW SD 42.6 LAB L100.1900 150-450 K/mm3 Normal PLT 277 LAB L100.2000 6.2-12.0 fl Normal MPV 8.9 LAB L100.2100 47-70 % High NEUT% 77.7 LAB L100.2200 19-41 % Low LY% 10.7 LAB L100.2300 0-10 % Normal MONO% 8.8 LAB L100.2400 0-5 % Normal EO% 2.0 LAB L100.2500 0-1 % Normal BASO% 0.2 LAB L100.2550 0.0-0.9 % Normal IM GRAN % 0.600 Result Comment: IG% - Immature Granulocytes (promyelocytes, myelocytes and metamyelocytes) > 1% indicates that a LEFT SHIFT is Present. LAB L100.2620 2.0-7.7 X10 3/uL High Absolute Neut 8.3 LAB L100.2720 0.83-4.51 X10 3/ul Normal Absolute Lymph 1.14 Performed By: #### L100.0100 #### [facility] [address] [place], [place], [address] BASIC METABOLIC Collected: 03/26/2018 Status: F Source: [place] PROFILE (BMP) 6:10 AM [facility] REPOSITORY TYPE CODE TESTS RESULT OUT OF RANGE REFERENCE UNITS LAB L501.0100 74-106 mg/dL High GLU 185 Result Comment: Fasting Glucose result greater than or equal to 126 mg/dL suggests DIABETES MELLITUS per A.D.A. criteria. Please note revised GLUCOSE reference range effective 2017. LAB L501.1000 7-18 mg/dL High BUN 23 LAB L501.1100 0.70-1.30 mg/dL High CREAT,SERUM 1.52 Result Comment: The validity of the calculated GFR AND GFRAA in patients over 70 years has not been determined. Clinical correlation is essential. LAB L501.1110 >60 mL/min Low EST GFR 48 Result Comment: Non- GFR Calc LAB L501.1115 >60 mL/min Low EST GFR - AA 59 Result Comment: GFR Calc LAB L501.1255 ml/min Normal Estimated CRCL 49.63 LAB L501.1300 10-20 RATIO Normal BUN/CRE 15.1 LAB L501.2200 8.5-10 mg/dL Low .1 CA 8.0 LAB L501.5300 136-14 mmol/L Normal 5 NA 140 LAB L501.5600 3.5-5. mmol/L Low 1 K 3.3 LAB L501.5900 98-107 mmol/L Normal CL 101 LAB L501.6100 21.0-3 mmol/L Normal 2.0 CO2 27.0 LAB L501.6200 5-15 Normal GAP 12 Performed By: #### L500.2500 #### [facility] [address] [place], [place], [address] BEDSIDE GLUCOSE Collected: 03/25/2018 Status: F Source: [place] 9:46 PM [facility] REPOSITORY TYPE CODE TESTS RESULT OUT OF REFERENCE UNITS RANGE LAB L501.080 70-110 mg/dL High BEDSIDE GLU 184 Result Comment: MANAGEMENT OF PATIENT CARE PER NURSING PROTOCOL Performed By: #### L501.080 #### [facility] Point of Care [address] [place], [place] [address] BEDSIDE GLUCOSE Collected: 03/25/2018 Status: F Source: [place] 6:28 PM [facility] REPOSITORY TYPE CODE TESTS RESULT OUT OF REFERENCE UNITS RANGE LAB L501.080 70-110 mg/dL High BEDSIDE GLU 169 Result Comment: MANAGEMENT OF PATIENT CARE PER NURSING PROTOCOL Performed By: #### L501.080 #### [facility] Point of Care [address] [place], [place] [address] Observed: 03/25/2018 Status: F Source: [place] CULTURE, DEEP WOUND 4:52 PM [facility] REPOSITORY List Antibiotics Last 48 Hours? ZOSYN, VANCOMYCIN Comments: 1) PRE LAVAGE DISTAL PHALANX RIGHT HALLUX Gram Stain Gram Stain Rare Gram positive cocci No cells seen Wound Culture ORGANISM 1: Staphylococcus aureus Amount Growth 1+ Staphylococcus aureus: REACTION Benzylpenicillin NF >=0.5 R Cefoxitin *NF - Clindamycin $$ <=0.25 S Inducable Clindamycin Resistan - Erythromycin $ <=0.25 S Gentamicin $ <=0.5 S Levofloxacin $ 0.25 S Linezolid $$$$ 2 S Moxifloxicin *NF <=0.25 S Oxacillin NF 0.5 S Tigecycline $$$$ <=0.12 S Rifampin $$ <=0.5 S Tetracycline NF <=1 S Trimethoprim/Sulfametho $ <=10 S Vancomycin $ <=0.5 S (NF) indicates non-formulary drug at [facility]. Approval by Infectious Disease Specialist required before non-formulary drugs may be ordered and/or dispensed. * CLSI guidelines does not recommend testing of cephalosporins. This interpretation is deduced from Beta-lactam/penicillin results. Cult, Anaerobic No anaerobic bacteria isolated. Performed By: #### M100.1500 #### [facility] [address] [place], [place], [id number] Observed: 03/25/2018 Status: F Source: [place] CULTURE, DEEP WOUND 4:52 PM [facility] REPOSITORY List Antibiotics Last 48 Hours? ZOSYN, VANCOMYCIN Comments: 3) POST LAVAGE FIRST METATARSAL RIGHT FOOT Gram Stain Gram Stain Rare Gram positive cocci No organisms seen Wound Culture ORGANISM 1: Staphylococcus aureus Amount Growth Rare Staphylococcus aureus: REACTION Benzylpenicillin NF >=0.5 R Cefoxitin *NF - Clindamycin $$ <=0.25 S Inducable Clindamycin Resistan - Erythromycin $ <=0.25 S Gentamicin $ <=0.5 S Levofloxacin $ <=0.12 S Linezolid $$$$ 2 S Moxifloxicin *NF <=0.25 S Oxacillin NF <=0.25 S Tigecycline $$$$ <=0.12 S Rifampin $$ <=0.5 S Tetracycline NF <=1 S Trimethoprim/Sulfametho $ <=10 S Vancomycin $ <=0.5 S (NF) indicates non-formulary drug at [facility]. Approval by Infectious Disease Specialist required before non-formulary drugs may be ordered and/or dispensed. * CLSI guidelines does not recommend testing of cephalosporins. This interpretation is deduced from Beta-lactam/penicillin results. Cult, Anaerobic No anaerobic bacteria isolated. Performed By: #### M100.1500 #### [facility] [address] [place], [place], [address] AFB Observed: 03/25/2018 Status: F Source: [place] CULT/SMEAR [id number] 4:52 PM [facility] REPOSITORY Comments: 1) PRE LAVAGE PROXIMAL PHALANX RIGHT HALLUX Is this test to exclude patient from TB Isolation? N AFB Smear/Fluor [facility] ORIGINAL REPORT ON FILE IN LAB CONTAINS ADDITIONAL TEST SITE INFORMATION. Smear, Acid Fast Tissue Grinding Smear: Negative AFB Cult TESTING PERFORMED AT [facility]. ORIGINAL REPORT ON FILE IN LAB CONTAINS ADDITIONAL TEST SITE INFORMATION. Culture, Acid Fast NO ACID-FAST BACILLI ISOLATED AFTER 6 WEEKS. Performed By: #### M100.3880, M600.1900 #### [facility] [address] [place], [address] Observed: 03/25/2018 Status: F Source: MICHAEL VAZQUEZ W/ 4:52 PM [facility] [id number] REPOSITORY Comments: 1) PRE LAVAGE PROXIMAL PHALANX RIGHT HALLUX Is this test to exclude patient from TB Isolation? N Cu,[id number] TESTING PERFORMED AT [facility]. ORIGINAL REPORT ON FILE IN LAB CONTAINS ADDITIONAL TEST SITE INFORMATION. CUF No yeast or mold isolated after [address] [facility]. ORIGINAL REPORT ON FILE IN LAB CONTAINS ADDITIONAL TEST SITE INFORMATION. Fungus Stain No yeast or mold observed. Performed By: #### M100.3880, M600.1900 #### [facility] [address] [place], [address] AFB Observed: 03/25/2018 Status: F Source: [place] CULT/SMEAR [id number] 4:52 PM [facility] REPOSITORY Comments: 3) POST LAVAGE FIRST METATARSAL RIGHT FOOT AFB Smear/Fluor TESTING PERFORMED AT [facility]. ORIGINAL REPORT ON FILE IN LAB CONTAINS ADDITIONAL TEST SITE INFORMATION. Smear, Acid Fast Tissue Grinding Smear: Negative AFB Cult TESTING PERFORMED AT [facility]. ORIGINAL REPORT ON FILE IN LAB CONTAINS ADDITIONAL TEST SITE INFORMATION. Culture, Acid Fast NO ACID-FAST BACILLI ISOLATED AFTER 6 WEEKS. Performed By: #### M100.3880 #### [place] [facility] [address] [place], [address] Observed: 03/25/2018 Status: F Source: [place] DEAN, FUNGUS W/ 4:52 PM [facility] [id number] REPOSITORY Comments: 3) POST LAVAGE FIRST METATARSAL RIGHT FOOT Is this test to exclude patient from TB Isolation? N Cu,[id number] TESTING PERFORMED AT [facility]. ORIGINAL REPORT ON FILE IN LAB CONTAINS ADDITIONAL TEST SITE INFORMATION. CUF No yeast or mold isolated after [address] TESTING PERFORMED AT [facility]. ORIGINAL REPORT ON FILE IN LAB CONTAINS ADDITIONAL TEST SITE INFORMATION. Fungus Stain No yeast or mold observed. Performed By: #### M600.1900 #### [place] [facility] [address] [place], [address] BEDSIDE GLUCOSE Collected: 03/25/2018 Status: F Source: [place] 4:48 PM [facility] REPOSITORY TYPE CODE TESTS RESULT OUT OF REFERENCE UNITS RANGE LAB L501.080 70-110 mg/dL High BEDSIDE GLU 165 Result Comment: MANAGEMENT OF PATIENT CARE PER NURSING PROTOCOL Performed By: #### L501.080 #### [facility] Point of Care [address] [place] [address] FOOT MIN 3 VIEWS Observed: 03/25/2018 Status: F Source: [place] 4:22 PM [facility] REPOSITORY [facility] Imaging Services [address] [place] [address] Foot min 3 Views MR#: [id number] Acct: [id number] Name: RICHARD ROY Rep #: [id number] : 1945 M 72 From: Nash Park MD PCP: Dmitry Roberto III, MD Status: ADM IN Study: Foot min 3 Views Date of Exam: 03/25/18 Exam# [id number] Ordering Dr: Arminda Obregon DPNelson ADDENDUM by Nash Park on 03/25/18 at 212 RAD/Foot min 3 Views 03/25/182128 Date cc: WINSOME Obregon; Dmitry Roberto III, MD * Signed ADDENDUM by Nash Park on 03/25/18 at 2 ADDENDUM This exam was discussed directly with referring surgeon who indicates the lucent densities beyond the first metatarsal in the amputation stump, represent packing material. Electronically Signed: Nash Park MD at 21:22 EDT , Service support , 03/25/182121 Date cc: WINSOME Obregon; Dmitry Roberto III, MD * Signed STUDY: X-RAY - RIGHT FOOT CLINICAL: Male, 72 years old. Status post amputation. TECHNIQUE: 3 view(s) of the foot. COMPARISON: MRI earlier today.. FINDINGS: Since prior exam, there has been amputation of the first toe to the level of the metatarsophalangeal joint. There is prominent soft tissue irregularity and there may be an open wound and soft tissue air extending down to the surface of the first metatarsal. Findings are consistent with the recent surgery. However soft tissue infection cannot be excluded. RAD/Foot min 3 Views IMPRESSION: Immediately status post amputation of the first toe. Question open wound of the soft tissues distal to the first metatarsal. Electronically Signed: Nash Park MD at 20:01 EDT , Service support , CC: WINSOME Obregon; Dmitry Roberto III, MD Pest Management Supervisor: Signed BEDSIDE GLUCOSE Collected: 03/25/2018 Status: F Source: [place] 11:16 AM [facility] REPOSITORY TYPE CODE TESTS RESULT OUT OF REFERENCE UNITS RANGE LAB L501.080 70-110 mg/dL High BEDSIDE GLU 237 Result Comment: MANAGEMENT OF PATIENT CARE PER NURSING PROTOCOL Performed By: #### L501.080 #### [facility] Point of Care [facility] [address] [place], [place] [address] LACTIC ACID Collected: 03/25/2018 Status: F Source: [place] 9:35 AM [facility] REPOSITORY TYPE CODE TESTS RESULT OUT OF REFERENCE UNITS RANGE LAB L503.6005 0.4-2.0 mmol/L High LACTIC ACID 2.2 Result Comment: Critical Result(s) Called at: 10:09:38 03/25/2018 by: AYLA Mendosa Performed By: #### L503.6005 #### [facility] [address] [place], [address] LOWER EXT/NO JT/W/O Observed: 03/25/2018 Status: F Source: [place] 8:16 AM [facility] REPOSITORY [facility] Imaging Services [address] [place] [address] Lower Ext/No Jt/w/o MR#: [id number] Acct: [id number] Name: RICHARD ROY Rep #: [id number] : 1945 M 72 From: Tyler Neal MD PCP: Dmitry Roberto III, MD Status: ADM IN Study: Lower Ext/No Jt/w/o Date of Exam: 03/25/18 Exam# [id number] Ordering Dr: Arminda Obregon DPM STUDY: MRI RIGHT FOREFOOT WITHOUT CONTRAST REASON FOR EXAM: Open wound since February. TECHNIQUE: Standardized fat and water weighted pulse sequences were obtained in all 3 orthogonal planes. COMPARISON: Radiographs 03/24/2018. FINDINGS: Normal metatarsophalangeal joint of the hallux. There is a bipartite fibular sesamoid with slight cystic change adjacent to the synchondrosis (inversion recovery sagittal image 9). Normal interphalangeal joint of the hallux. There is bone edema of the first distal phalanx (inversion recovery sagittal images 11, 12) with erosion of the plantar cortex of the first proximal phalanx (T1 series 7 image 28) suggestive of osteomyelitis. There is bone edema of the first proximal phalanx (inversion recovery sagittal images 9, 10) without decreased T1 bone marrow signal and therefore either reactive bone edema or early osteomyelitis. Normal medial and lateral heads of the flexor hallucis brevis tendons. Normal flexor and extensor hallucis longus tendons. Normal second through fifth metatarsophalangeal (MTP) joints. Normal interphalangeal joints of the second through fifth toes. Normal proximal, middle and distal phalanges of the second through fifth toes. There is soft tissue fullness at the plantar aspect of the second webspace (T1 series 7 images 16, 17) measuring 0.5 cm in AP dimension. Normal flexor and extensor tendons of the second through fifth toes. Normal visualized metatarsi. There is fat replacement of the intrinsic muscles of the forefoot (T1 sagittal images 11-23) suggestive of peripheral neuropathy. There is edema in the subcutis adipose space. There is a fluid collection at the lateral aspect of the first interphalangeal joint/first proximal phalanx (inversion recovery sagittal image 13; T2 series 8 images 24, 25) suggestive of an abscess measuring 1.5 x 0.7 x 2.6 cm (AP x transverse x length). MRI/Lower Ext/No Jt/w/o IMPRESSION: Signal alteration of the distal phalanx of the great toe suggestive of osteomyelitis, and bone edema of the first proximal phalanx, either reactive bone edema or early osteomyelitis. Fluid collection at the lateral aspect of the great toe suggestive of abscess. Atrophy of the intrinsic muscles of the forefoot suggestive of peripheral neuropathy. Small intermetatarsal neuroma of the second webspace. Electronically Signed: Tyler Neal MD at 9:58 EDT Tel , Service support , CC: WINSOME Obregon; Dmitry Roberto III, MD Pest Management Supervisor: Signed CONSULTATION Observed: 03/25/2018 Status: F Source: [place] 7:33 AM [facility] REPOSITORY [facility] Medical Records Department [address] [place] [id number] Consultation 03/25/18 0717 MR#: [id number] Acct: [id number] Name: RICHARD ROY Rep #: [id number] : 1945 72 From: Arminda Obregon DPM PCP: Dmitry Roberto III, MD Status: ADM IN Location: [facility] [id number] Reason for Consult Date of Consultation: 03/25/18 Reason for Consultation: cellulitis and diabetic foot ulceration History of Present Illness: The patient is a 72 year old M with pmh for diabetic neuropathy is currently admitted for cellulitis and possible osteomyelitis of his right hallux. Patient is well known to me as he comes to my clinic for diabetic foot care every 3 months. He saw me for diabetic foot exam on March 06. at that time, it was found that he had ulceration of his right hallux that he states had been present for 3-4 weeks. He did not call my office because he stated at that time that he has had alot going on and he did not feel that he had time to get to my office. He was treating the wound with neosporin and he felt that it was getting better. He has been seen for the past 3 weeks in my office. We initially treated with santyl for enzymatic debridement of fibrotic slough. He had been recommended peg assisted offloading boot and walker but he did not use this as he felt that it was not adequately offloading the ulceration. He has been offered total contact casting but he declined that. he has had xrays in my office on march 06 and last Saturday. xrays in my clinic have been stable with no osteomyelitis. Last week when he presented to my clinic, the wound although fairly large, appeared more granular. Sandra was ordered for daily wound care. He was given forefoot wedge shoe. He states the ulceration is getting smaller but yesterday, he noticed some drainage. He presented to the emergency room where wbc was found to be 17,000. xrays were ordered and there are now questionable findings for osteomyelitis of his right hallux distal phalanx. Patient was placed on antibiotic. He is npo for possible podiatric surgery. Of note, patient has had pvr performed in my clinic this past November and his circulation appears to be adequate. Patient denies n/v/f/c. 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 Patient also had an MRSA infection in his abdomen before and had quite extensive debridement. Smoking Status: Never smoker - *Family History Maternal History Items: No pertinent history Patient Problems: Active and Suspected Problems Ulcer of right great toe due to diabetes mellitus (Acute) Osteomyelitis (Acute) Objective: Patient is alert and orientated x 3. He does not appear in any distress vascular: DP and PT pulses are palpable to right foot. CFT is brisk. Skin temperature is warm to warm. There is edema of right foot. There is redness of right midfoot extending distally. Derm: there is full thickness ulceration to right hallux ipj. ulceration is approximately 1.2 cm x 0.8 cm x 0.3 cm. there is pus drainage from the base of ulceration. there is scaling and deroofing of skin of lateral right hallux that is new since last Saturday. no other ulceration is noted to right foot. neuro: protective sensation is absent to right foot. xrays reviewed. there is questionable erosive changes to right hallux distal phalanx concerning for osteomyelitis. no gas in soft-tissue. there is small 1 mm foreign body of right hallux - Physical Exam Vital Signs Temp Pulse Resp BP Pulse Ox 98.7 F 71 16 108/58 L 98 03/25/18 06:06 03/25/18 06:06 03/25/18 06:06 03/25/18 06:06 03/25/18 06:06 Oxygen Delivery Method Room Air Weight: 122.8 kg Body Mass Index (BMI) 35.9 Intake and Output for Last 24 Hours Intake Total 741 / 741 Balance 741 / 741 Laboratory Tests Past 24 Hrs WBC RBC Hgb Hct MCV MCH MCHC RDW RDW Differential Plt Count MPV Immature Gran % (Auto) Neut % (Auto) Lymph % (Auto) POC Glucose POC Glucose 221 H Assessment/Plan All Active Problems Ulcer of right great toe due to diabetes mellitus (Acute) Osteomyelitis (Acute) Vertigo (Acute) Cough (Acute) (dyspnea on exertion) (Acute) Pulmonary emboli (Acute) H/O aortic valve repair (Resolved) H/O thoracic aortic aneurysm repair (Resolved) Nausea (Resolved) PAF (paroxysmal atrial fibrillation) (Resolved) Patient was examined and informed of current findings. On exam, he has both cellulitis of foot and active drainage of right hallux ipj ulceration, both new since last week. xrays reviewed and concerning for osteomyelitis. I have discussed with patient need for incision and drainage. given xray findings, there is significant risk that he is going to require some form of amputation. Partial vs total toe amputation is possible not only for osteomyelitis but due to the condition of surrounding skin and existing ulceration. I would like to order mri vs ct scan to aide in further operative planning for extent of likely amputation. given that he has small metallic body in foot, mri is likely not adequate and will likely require ct scan. I am going to discuss with radiology. I have had discussion with patient. this patient had ulceration of right hallux for nearly one month before seeking treatment. it is important in future if he has an issue, he contact provider immediately so that this situation is prevented in future. he understands the result of his action. continue with antibiotic. will have patient resume clear liquid diet until 10:00. npo thereafter for possible surgery. 03/25/18 0733 <Electronically signed by Arminda Obregon DPM> Date Arminda Obregon DPM Cosigner Signature (if applicable): Date CC: WINSOME Obregon; Dmitry Roberto III, MD; Jesus Burnham MD Signed BONE (FX/NONFRACTURE) Observed: 03/25/2018 Status: F Source: [place] 7:30 AM [facility] REPOSITORY Patient: RICHARD ROY : 1945 (72/M) Acct Num: [id number] Phys: Yolie Nguyen M.D. Unit Num: [id number] Loc: MS2 PS590-1 Specimen: [id number] Received: 03/26/18 - 7458 Spec Type: Bone TISSUES TISSUES: A. Bone of foot, NOS B. Bone of foot, NOS GROSS DESCRIPTION A - Received in fixative is one container labeled with the patient's name and designated pre-lavage distal phalanx right hallux. The specimen consists of a portion of toe measuring 3 x 3 x 2 cm. The nail is present and appears focally atrophic. No obvious area of ulcerated is noted. Vehicle And Equipment Cleaner sections are submitted in three cassettes as follows: 1 soft tissue close to the area of amputation, 2 AND 3 bone after decalcification. B - Received in fixative is one container labeled with the patient's name and designated post-lavage first metatarsal right foot. The specimen consists of a piece of bone measuring 0.7 x 0.3 x 0.3 cm. The entire specimen is submitted in one cassette after decalcification. / TESSIE:radhika 03/26/18 TC:2 CPT: 32301, 50218, 64161 x2, 95719 x2 HEADER OPERATION: Incision and drainage, partial amputation great toe PRE-OP DIAGNOSIS: Osteomyelitis right great toe with diabetic foot ulcerations TISSUE SUBMITTED: A Pre-lavage distal phalanx right hallux, B Post-lavage first metatarsal right foot MICROSCOPIC DESCRIPTION Slides are reviewed. MICROSCOPIC DIAGNOSIS A. Distal phalanx right hallux, pre-lavage, amputation: Acute inflammation and abscess formation. Special stains for acid fast bacilli and fungi are negative for organisms; matched controls are appropriate. Bone with acute osteomyelitis. B. Post-lavage first metatarsal right foot: A piece of bone, negative for acute osteomyelitis. :radhika 03/31/18 Signed Evaristo Dela Cruz 03/31/18 <signature on file> Performed By: #### PBON #### [facility] [address] [place], [place], [address] BEDSIDE GLUCOSE Collected: 03/25/2018 Status: F Source: [place] 6:18 AM [facility] REPOSITORY TYPE CODE TESTS RESULT OUT OF REFERENCE UNITS RANGE LAB L501.080 70-110 mg/dL High BEDSIDE GLU 221 Result Comment: MANAGEMENT OF PATIENT CARE PER NURSING PROTOCOL Performed By: #### L501.080 #### [facility] Point of Care [address] [place], [place] [address] LACTIC ACID Collected: 03/25/2018 Status: F Source: [place] 5:05 AM [facility] REPOSITORY Order Comment: Yes/No query for Sepsis Lactate Rule Y TYPE CODE TESTS RESULT OUT OF REFERENCE UNITS RANGE LAB L503.6005 0.4-2.0 mmol/L High LACTIC ACID 2.3 Result Comment: Critical Result(s) Called at: 06:01:16 03/25/2018 by: EVA SPARROW RN MS2 Performed By: #### L503.6005 #### [facility] [address] [place], [place], [address] PROTHROMBIN TIME W/INR Collected: 03/25/2018 Status: F Source: [place] 2:37 AM [facility] REPOSITORY TYPE CODE TESTS RESULT OUT OF RANGE REFERENCE UNITS LAB L300.4150 11.7-14.9 SECONDS High PROTIME 31.7 LAB L300.4200 Normal INR 3.0 Performed By: #### L300.3900 #### [facility] [address] [place], [address] CBC W/DIFF, AUTOMATED Collected: 03/25/2018 Status: F Source: [place] 2:37 AM [facility] REPOSITORY TYPE CODE TESTS RESULT OUT OF RANGE REFERENCE UNITS LAB L100.1000 4.4-11.0 K/mm3 High WBC 16.0 LAB L100.1200 4.6-6.2 M/mm3 Low RBC 3.70 LAB L100.1300 13.0-16.5 g/dl Low HGB 10.1 LAB L100.1400 40-54 % Low HCT 31.2 LAB L100.1500 80-94 fL Normal MCV 84.3 LAB L100.1600 27.0-32.0 pg Normal MCH 27.3 LAB L100.1700 32-36 g/gl Normal MCHC 32.4 LAB L100.1810 11.6-14.6 % Normal RDW CV 13.8 LAB L100.1820 35.1-43.9 fl Normal RDW SD 42.7 LAB L100.1900 150-450 K/mm3 Normal PLT 270 LAB L100.2000 6.2-12.0 fl Normal MPV 8.9 LAB L100.2100 47-70 % High NEUT% 80.2 LAB L100.2200 19-41 % Low LY% 9.9 LAB L100.2300 0-10 % Normal MONO% 8.4 LAB L100.2400 0-5 % Normal EO% 0.9 LAB L100.2500 0-1 % Normal BASO% 0.2 LAB L100.2550 0.0-0.9 % Normal IM GRAN % 0.400 Result Comment: IG% - Immature Granulocytes (promyelocytes, myelocytes and metamyelocytes) > 1% indicates that a LEFT SHIFT is Present. LAB L100.2620 2.0-7.7 X10 3/uL High Absolute Neut 12.8 LAB L100.2720 0.83-4.51 X10 3/ul Normal Absolute Lymph 1.59 Performed By: #### L100.0100 #### [facility] [address] [place], [address] BASIC METABOLIC Collected: 03/25/2018 Status: F Source: [place] PROFILE (BMP) 2:37 AM [facility] REPOSITORY TYPE CODE TESTS RESULT OUT OF RANGE REFERENCE UNITS LAB L501.0100 74-106 mg/dL High GLU 222 Result Comment: Glucose result greater than or equal to 200 mg/dL suggests DIABETES MELLITUS per A.D.A. criteria. Please note revised GLUCOSE reference range effective 2017. LAB L501.1000 7-18 mg/dL High BUN 32 LAB L501.1100 0.70-1.30 mg/dL High CREAT,SERUM 1.62 Result Comment: The validity of the calculated GFR AND GFRAA in patients over 70 years has not been determined. Clinical correlation is essential. LAB L501.1110 >60 mL/min Low EST GFR 45 Result Comment: Non- GFR Calc LAB L501.1115 >60 mL/min Low EST GFR - AA 54 Result Comment: GFR Calc LAB L501.1255 ml/min Normal Estimated CRCL 46.57 LAB L501.1300 10-20 RATIO Normal BUN/CRE 19.8 LAB L501.2200 8.5-10 mg/dL Low .1 CA 8.3 LAB L501.5300 136-14 mmol/L Normal 5 NA 140 LAB L501.5600 3.5-5. mmol/L Low 1 K 3.3 LAB L501.5900 98-107 mmol/L Normal CL 100 LAB L501.6100 21.0-3 mmol/L Normal 2.0 CO2 27.0 LAB L501.6200 5-15 Normal GAP 13 Performed By: #### L500.2500 #### [facility] [address] [place], [address] LACTIC ACID Collected: 03/25/2018 Status: F Source: [place] 2:37 AM [facility] REPOSITORY TYPE CODE TESTS RESULT OUT OF REFERENCE UNITS RANGE LAB L503.6005 0.4-2.0 mmol/L High LACTIC ACID 2.1 Result Comment: Critical Result(s) Called at: 03:43:35 03/25/2018 by: EVA MORAN TO JACEY LOAIZA MS2 Performed By: #### L503.6005 #### [facility] [address] [place], [address] HISTORY AND PHYSICAL Observed: 03/25/2018 Status: F Source: [place] EXAM 12:02 AM [facility] REPOSITORY [facility] Medical Records Department [address] [place] [id number] History and Physical 03/24/18 2346 MR#: [id number] Acct: [id number] Name: RICHARD ROY Rep #: [id number] : 1945 72 From: Jesus Burnham MD PCP: Dmitry Roberto III, MD Status: REG ER Y Location: ED Problem List (1) Ulcer of right great toe due to diabetes mellitus Status: Acute (2) Osteomyelitis Status: Acute Qualifiers: Osteomyelitis type: unspecified type Osteomyelitis location: foot Laterality: right Qualified Code(s): M86.9 - Osteomyelitis, unspecified (3) HLD (hyperlipidemia) Status: Chronic (4) RBBB (right bundle 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) Status: Chronic (5) DM II (diabetes mellitus, type II), controlled Status: Chronic (6) HTN (hypertension) Status: Chronic History of Present Illness Date of Admission: 03/24/18 Chief Complaint: right great toe infection The patient is a 72 year old male patient with a significant past medical history of diabetes presents to the ER with an infection of the the right great toe. This initially started as a diabetic ulcer for which he has been receiving chronic wound care as an outpatient. He states the wound was improving until recently when they changed the type of wound care dressing they were using. Today upon opening his bandage copious amount of purulent discharge was present. The foot was warm to touch as well. WBC count is 17,000 with a left shift. He will be admitted for IV antibiotics and surgical management. 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 Patient also had an MRSA infection in his abdomen before and had quite extensive debridement. Smoking Status: Never smoker - *Family History Maternal History Items: No pertinent history Review of Systems Constitutional: Reports: Fever. Denies: Chills, Weight Change HEENT: Denies: Head Aches, Sinus Congestion, Sinus Drainage Cardiovascular: Denies: Chest Pain, Palpitations Respiratory: Denies: Cough, Shortness of breath at rest, Sputum production Gastrointestinal: Denies: Abdominal Pain, Nausea, Vomiting Genitourinary: Denies: Dysuria Musculoskeletal: Denies: Joint Pain, Joint Tenderness Skin: Reports: Wounds - right foot. Denies: Rash Neurological: Denies: Numbness, Tingling, Focal weakness Psychiatric: Denies: Anxiety, Depression, Homicidal Ideations, Suicidal Ideations Hematologic/ Lymphatic: Denies: Easy Bruising, Easy Bleeding VTE Information - Inpt Only VTE Present on Admission: No VTE Mechan Device Prophylaxis: None VTE Pharm Prophylaxis ordered?: Yes Patient Problems: Active and Suspected Problems Ulcer of right great toe due to diabetes mellitus (Acute) Osteomyelitis (Acute) - Physical Exam General: Alert, Oriented x3, Cooperative HEENT: Atraumatic, Normocephalic Neck: Supple Lungs: Clear to auscultation, Normal air movement Cardiovascular: Regular rate, Normal S1, Normal S2, No murmurs Abdomen: Bowel Sounds Present, Soft, Non Tender Extremities: Tenderness Skin: Ulcer/ Wound - right great toe dorsal surface quarter size open wound erythema /warmth with induration present on the distal midfoot circumferentially Musculoskeletal: Tenderness Neurological: Cranial nerves II-XII grossly intact Psych/Mental Status: Normal Affect, Appropriate Vital Signs Temp Pulse Resp BP Pulse Ox 100.4 F H 102 H 14 150/88 H 98 03/24/18 21:15 03/24/18 22:20 03/24/18 22:20 03/24/18 22:20 03/24/18 22:20 Oxygen Delivery Method Room Air Weight: 269 lb 6.4 oz Body Mass Index (BMI) 35.5 Laboratory Tests Past 24 Hrs WBC 17.3 H RBC 4.19 L Hgb 11.3 L Hct 35.7 L WBC RBC Hgb Hct MCV MCH MCHC RDW RDW Differential Plt Count MPV Immature Gran % (Auto) Neut % (Auto) Lymph % (Auto) Highland % (Auto) Assessment/Plan All Active Problems Ulcer of right great toe due to diabetes mellitus (Acute) Osteomyelitis (Acute) Vertigo (Acute) Cough (Acute) (dyspnea on exertion) (Acute) Pulmonary emboli (Acute) H/O aortic valve repair (Resolved) H/O thoracic aortic aneurysm repair (Resolved) Nausea (Resolved) PAF (paroxysmal atrial fibrillation) (Resolved) Assessment - cellulitis foot - osteomyelitis great toe right - diabetic ulcer foot Chronic Problems HLD (hyperlipidemia) (Chronic) 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) DM II (diabetes mellitus, type II), controlled (Chronic) HTN (hypertension) (Chronic) Plan - admit to medical surgical floor - consult Dr Mejia - continue Vancomycin and Zosyn - NPO - ok home medications with sips otherwise NPO pending surgery - LMWH for DVT prophylaxis - CBC, BMP, Lactate in am Code Visit Inpatient E AND M: [id number] Init Hosp L3 03/25/18 0002 <Electronically signed by Jesus Burnham MD> Date Jesus Burnham MD Cosigner Signature: Date (if applicable) CC: Dmitry Roberto III, MD; Jesus Burnham MD Signed EMERGENCY DEPARTMENT Observed: 03/24/2018 Status: F Source: [place] SUMMARY 10:58 PM [facility] REPOSITORY [facility] Medical Records Department [address] [place] [address] Emergency Department Summary 03/24/18 2134 MR#: [id number] Acct: [id number] Name: RICHARD ROY Rep #: [id number] : 1945 72 From: Kenneth Ledezma MD PCP: Dmitry Roberto III, MD Status: REG ER - ER Visit Summary Date of Service: 03/24/18 Chief Complaint: Foot ulcer History of Present Illness: The patient is a [address] Dmitry Roberto III, Dr. Kendrick Troy, and Dr. Obregon. He reports that he has an ulcer on the bottom of his right great toe that is been present since the beginning of February. He has been seeing seismometer operator for the past 3 weeks. States that did not seem infected until yesterday. Reports the area became red yesterday. Reports his pain is 6 out of 10 and sharp when he walks. He is pain-free at rest. He does report that he developed a fever tonight to 100.4 . He denies any other complaints. Physical Examination: Vitals: Stable. Afebrile. General: Well-nourished and well-developed. Head: Normocephalic atraumatic. Neck: Supple, no lymphadenopathy. No JVD. Nontender. Cardiovascular: Tachycardic regular rhythm with a 2 out of 6 systolic murmur. Respiratory: No respiratory distress. Clear to auscultation bilaterally. Abdominal: Soft, nontender, nondistended, normal bowel sounds. No guarding, rebound, or peritoneal signs. Back: Nontender. Extremities: Dime sized ulcer on the medial side of the plantar surface of his right great toe. There is purulent drainage coming from this. He has erythema over the dorsum of his foot.. Skin: Normal color, no rash. Neurologic: Alert and oriented 3. Cranial nerves II through XII are intact. Normal strength and sensation. Psych: Normal affect. Test Results: CBC is remarkable for a white count of 17.3 with an H AND H of 11.3 and 35.7, segmented neutrophils 85, lymphocytes of 5. Chem-7 is more for sodium 134, chloride 95, BUN 32, creatinine 1.75, glucose of 271. Lactic acid is 3.1. Right great toe x-ray shows possible osteomyelitis involving the undersurface of the first distal phalanx. There is also questionable foreign body in this area. Emergency Department Course and Treatment: Patient had wound cultures obtained. He was given Zosyn and vancomycin IV. Patient is given Tylenol for the fever. He is given a liter bolus of normal saline. Treatment Plan: Patient was discussed with Dr. Jesus Curiel. He will be admitted to the hospital for further evaluation and treatment. Disposition: Admitted in improved but serious condition. Impression: 1. Diabetic ulcer right great toe. 2. Severe sepsis. 3. Acute renal insufficiency. 4. Possible foreign body right great toe. This note was generated with [employer] dictation software. It may contain incorrect words, spelling, and punctuation that were not noted in review of the chart prior to signing ED Disposition - Plan for ED Patient: Chief Complaint: Wound Referrals: Dmitry Roberto III, MD [Primary Care Provider] - What to do if you have Problems For any increased pain, shortness of breath, bleeding, nausea or vomiting, chest pain, or any unexpected problems, contact your Primary Care Provider. Call [facility] ([phone]) or report to the closest Emergency Room. Call 911 if necessary. 03/24/18 2258 <Electronically signed by Kenneth Ledezma MD> Date Kenneth Ledezma MD Cosigner Signature (If Indicated): Date CC: Dmitry Roberto III, MD CBC W/DIFF, AUTOMATED Collected: 03/24/2018 Status: F Source: [place] 10:00 PM [facility] REPOSITORY TYPE CODE TESTS RESULT OUT OF RANGE REFERENCE UNITS LAB L100.1000 4.4-11.0 K/mm3 High WBC 17.3 LAB L100.1200 4.6-6.2 M/mm3 Low RBC 4.19 LAB L100.1300 13.0-16.5 g/dl Low HGB 11.3 LAB L100.1400 40-54 % Low HCT 35.7 LAB L100.1500 80-94 fL Normal MCV 85.2 LAB L100.1600 27.0-32.0 pg Normal MCH 27.0 LAB L100.1700 32-36 g/gl Low MCHC 31.7 LAB L100.1810 11.6-14.6 % Normal RDW CV 13.8 LAB L100.1820 35.1-43.9 fl Normal RDW SD 43.1 LAB L100.1900 150-450 K/mm3 Normal PLT 303 LAB L100.2000 6.2-12.0 fl Normal MPV 9.0 LAB L100.2100 47-70 % High NEUT% 84.8 LAB L100.2200 19-41 % Low LY% 5.4 LAB L100.2300 0-10 % Normal MONO% 8.8 LAB L100.2400 0-5 % Normal EO% 0.7 LAB L100.2500 0-1 % Normal BASO% 0.1 LAB L100.2550 0.0-0.9 % Normal IM GRAN % 0.200 Result Comment: IG% - Immature Granulocytes (promyelocytes, myelocytes and metamyelocytes) > 1% indicates that a LEFT SHIFT is Present. LAB L100.2620 2.0-7.7 X10 3/uL High Absolute Neut 14.7 LAB L100.2720 0.83-4.51 X10 3/ul Normal Absolute Lymph 0.93 LAB L100.4500 Normal SMEAR COMMENT SCANNED Result Comment: AUTO DIFF OK Performed By: #### L100.0100 #### [facility] [address] [place], [address] BASIC METABOLIC Collected: 03/24/2018 Status: F Source: [place] PROFILE (BMP) 10:00 PM [facility] REPOSITORY TYPE CODE TESTS RESULT OUT OF RANGE REFERENCE UNITS LAB L501.0100 74-106 mg/dL High GLU 271 Result Comment: Glucose result greater than or equal to 200 mg/dL suggests DIABETES MELLITUS per A.D.A. criteria. Please note revised GLUCOSE reference range effective 2017. LAB L501.1000 7-18 mg/dL High BUN 32 LAB L501.1100 0.70-1.30 mg/dL High CREAT,SERUM 1.75 Result Comment: The validity of the calculated GFR AND GFRAA in patients over 70 years has not been determined. Clinical correlation is essential. LAB L501.1110 >60 mL/min Low EST GFR 41 Result Comment: Non- GFR Calc LAB L501.1115 >60 mL/min Low EST GFR - AA 50 Result Comment: GFR Calc LAB L501.1255 ml/min Normal Estimated CRCL 44.39 LAB L501.1300 10-20 RATIO Normal BUN/CRE 18.3 LAB L501.2200 8.5-10 mg/dL Normal .1 CA 9.2 LAB L501.5300 136-14 mmol/L Low 5 NA 134 LAB L501.5600 3.5-5. mmol/L Normal 1 K 3.5 LAB L501.5900 98-107 mmol/L Low CL 95 LAB L501.6100 21.0-3 mmol/L Normal 2.0 CO2 26.0 LAB L501.6200 5-15 Normal GAP 13 Performed By: #### L500.2500 #### [facility] [address] [place], [place], [address] LACTIC ACID Collected: 03/24/2018 Status: F Source: [place] 10:00 PM [facility] REPOSITORY Order Comment: Yes/No query for Sepsis Lactate Rule Y TYPE CODE TESTS RESULT OUT OF REFERENCE UNITS RANGE LAB L503.6005 0.4-2.0 mmol/L High LACTIC ACID 3.1 Result Comment: Critical Result(s) Called Jose ALVARENGA at: 22:42:06 03/24/2018 by: AUGUSTUS MANNING Performed By: #### L503.6005 #### [facility] [address] [place], [address] Observed: 03/24/2018 Status: F Source: [place] CULTURE, BLOOD (WB) 10:00 PM [facility] REPOSITORY GRAM STAIN = GRAM POSITIVE COCCI IN CLUSTERS IN ANAEROBIC BOTTLE RESULTS CALLED TO SUNIL HERNANDEZ 03/25/18 1409 Julianna Guadalupe.REPORT READ BACK BY SAME. GRAM STAIN = GRAM POSITIVE COCCI IN AEROBIC BOTTLE ORGANISM 1: Staphylococcus aureus Amount Growth Growth Staphylococcus aureus: REACTION Benzylpenicillin NF >=0.5 R Cefoxitin *NF - Clindamycin $$ <=0.25 S Inducable Clindamycin Resistan - Erythromycin $ 0.5 S Gentamicin $ <=0.5 S Levofloxacin $ 0.25 S Linezolid $$$$ 2 S Moxifloxicin *NF <=0.25 S Oxacillin NF 0.5 S Tigecycline $$$$ <=0.12 S Rifampin $$ <=0.5 S Tetracycline NF <=1 S Trimethoprim/Sulfametho $ <=10 S Vancomycin $ 1 S (NF) indicates non-formulary drug at [facility]. Approval by Infectious Disease Specialist required before non-formulary drugs may be ordered and/or dispensed. * CLSI guidelines does not recommend testing of cephalosporins. This interpretation is deduced from Beta-lactam/penicillin results. Performed By: #### M200.1000 #### [facility] [address] [place], [place], [address] Observed: 03/24/2018 Status: F Source: [place] CULTURE, BLOOD (WB) 10:00 PM [facility] REPOSITORY GRAM STAIN = GRAM POSITIVE COCCI IN CLUSTERS IN AEROBIC AND ANAEROBIC BOTTLE RESULTS CALLED TO JUAN HERNANDEZ 03/25/18 1317 Julianna Guadalupe.REPORT READ BACK BY SAME. SEE [id number] FOR SENSITIVITY RESULTS. No anaerobic bacteria isolated. ORGANISM 1: Staphylococcus aureus Amount Growth Growth Performed By: #### M200.1000, M100.636 #### [facility] [address] [place], [place], [address] Observed: 03/24/2018 Status: F Source: [facility] GPC ID 10:00 PM [facility] REPOSITORY GPC ID RESULTS CALLED TO LIBBY BARBER 03/25/18 1616 Julianna Guadalupe. REPORT READ BACK BY SAME. Staphylococcus sp. Staphylococcus aureus Enterococcus sp. Not Detected Streptococcus spp. Not Detected Listeria spp Not Detected Irma/vanB Not Detected mecA Not Detected NAAT METHOD Testing was performed using nucleic acid amplification ORGANISM 1: Staphylococcus aureus Performed By: #### M200.1000, M100.636 #### [facility] [address] [place], [address] TOE(S) MIN 2 VIEWS Observed: 03/24/2018 Status: F Source: [place] 9:37 PM [facility] REPOSITORY [facility] Imaging Services [address] [place] [address] Toe(s) Min 2 Views MR#: [id number] Acct: [id number] Name: RICHARD ROY Rep #: [id number] : 1945 72 From: [place] MD PCP: Dmitry Roberto III, MD Status: REG ER Study: Toe(s) Min 2 Views Date of Exam: 03/24/18 Exam# [id number] Ordering Dr: Kenneth Ledezma MD STUDY: X-RAY RIGHT FOOT, FIRST TOE REASON FOR EXAM: Male, 72 years old. Diabetic ulcer TECHNIQUE: 5 view(s) of the toe were obtained. COMPARISON: None. FINDINGS: A large and deep soft tissue wound is seen directly plantar to the first interphalangeal joint. In the same general area there is a 1 mm metal density consistent with foreign body. On the lateral view, there are irregularities of the undersurface of the distal first phalanx which could represent osteomyelitis. There is generalized soft tissue swelling. RAD/Toe(s) Min 2 Views IMPRESSION: Possible osteomyelitis involving the undersurface of the first distal phalanx. Electronically Signed: [place] MD at 22:26 EDT , Service support , CC: Dmitry Roberto III, MD; Kenneth Ledezma MD Pest Management Supervisor: Signed MRSA WOUND DNA BY Collected: 03/24/2018 Status: F Source: [place] PCR 9:33 PM [facility] REPOSITORY TYPE CODE TESTS RESULT OUT OF RANGE REFERENCE UNITS LAB L8200.1100 Negative Normal MRSA Negative RESULT LAB L8200.1150 Negative High SA RESULT POSITIVE Performed By: #### L8200.1075 #### [facility] [address] [place], [address] Observed: 03/24/2018 Status: F Source: [place] CULTURE, DEEP WOUND 9:33 PM [facility] REPOSITORY Gram Stain Gram Stain Rare White Blood Cells Rare Gram positive cocci Wound Culture ORGANISM 1: Staphylococcus aureus Amount Growth 3+ ORGANISM 2: Proteus hauseri Amount Growth 1+ Staphylococcus aureus: REACTION Benzylpenicillin NF >=0.5 R Cefoxitin *NF - Clindamycin $$ <=0.25 S Inducable Clindamycin Resistan - Erythromycin $ <=0.25 S Gentamicin $ <=0.5 S Levofloxacin $ 0.25 S Linezolid $$$$ 2 S Moxifloxicin *NF <=0.25 S Oxacillin NF 0.5 S Tigecycline $$$$ <=0.12 S Rifampin $$ <=0.5 S Tetracycline NF <=1 S Trimethoprim/Sulfametho $ <=10 S Vancomycin $ <=0.5 S (NF) indicates non-formulary drug at [facility]. Approval by Infectious Disease Specialist required before non-formulary drugs may be ordered and/or dispensed. * CLSI guidelines does not recommend testing of cephalosporins. This interpretation is deduced from Beta-lactam/penicillin results. Proteus hauseri: REACTION Ampicillin $ >=32 R Ampicillin/Sulbactam $ >=32 R Cefazolin $ >=64 R Cefepime $ <=1 S Ceftazidime *NF <=1 S Ceftriaxone $ <=1 S Ciprofloxacin $ <=0.25 S Ertapenim $$$ <=0.5 S Gentamicin $ <=1 S Imipenem *NF 8 I Levofloxacin $ <=0.12 S Piperacillin/Tazobactam $$ <=4 S Tobramycin $ <=1 S Trimethoprim/Sulfametho $ <=20 S (NF) indicates non-formulary drug at [facility]. Approval by Infectious Disease Specialist required before non-formulary drugs may be ordered and/or dispensed. Cult, Anaerobic Studies have confirmed that Anaerobic Gram Positive Cocci are routinely susceptible to: Penicillin/Ampicillin, Ampicillin/Sulbactam, Piperacillin/Tazobactam, Cefoxatin, Ertapenem, Imipenem, Meropenem and Metronidazole and vary in resistance to: Clindamycin and Moxifloxacin. ORGANISM 1: Anaerobic cocci Performed By: #### M100.1500 #### [facility] [address] [place], [address] PROGRESS Observed: 03/19/2018 Status: COMPLETED Source: [place] 9:00 AM [facility] REPOSITORY O ID: [id number] Author: Azucena (Rt) Coty Inman Service: (none) Author Type: Piece Maker Type: Progress Notes Filed: 03/19/2018 9:00 AM Note Text: Radiology Service Progress Note PATIENT NAME: Richard Roy DATE OF SERVICE: March 19, 2018 TIME: 9:00 AM PATIENT IDENTITY VERIFICATION COMPLETED USING TWO (2) METHODS: Patient confirmed name verbally and Date of . PATIENT GENDER DATA: Male PATIENT RELEVANT IMPLANT DATA REVIEWED: Not Applicable RADIOLOGY DEPARTMENT: General X-ray: Exam(s) Completed: Lower Extremity X-Ray(s): Foot, Right and Wt. Bearing: PERIPHERAL IV DATA: Not applicable SIGNED BY: RT Ziggy March 19, 2018 9:00 AM XR FOOT 3V AP/LAT/OBL Observed: 03/19/2018 Status: F Source: [facility] 8:59 AM [facility] REPOSITORY * * *Final Report* * * DATE OF EXAM: Mar 19 2018 8:59AM [id number] [id number] - XR FOOT 3V AP/LAT/OBL RT / PROCEDURE REASON: multiple diagnoses * * * * Physician Interpretation * * * * HISTORY: 72-YEAR-OLD MALE WITH Type 2 diabetes mellitus with foot ulcer Non-pressure chronic ulcer of other part of right foot with fat layer exposed . 4-5 week follow up to open wound on the planter surface of the right foot 1st digit (in the middle of the fat pad). no injury TECHNIQUE: XR FOOT 3V AP/LAT/OBL RT Laterality: RIGHT Number of different views (projections): 3 COMPARISON: 03/06/2018 RESULT: Enthesophyte the base of the fifth metatarsal. Calcaneal enthesophyte insertion plantar fascia. Again identified is a small metallic density in the soft tissues plantar to the distal phalanx of the great toe. Mild narrowing of the first through fourth tarsometatarsal joint. No air is identified region of the soft tissue swelling. No radiographic evidence of osteomyelitis at this time. No fracture. IMPRESSION: NO ACUTE BONY ABNORMALITY. NO EVIDENCE OF OSTEOMYELITIS. Pest Management Supervisor: PSCB Transcribe Date/Time: Mar 19 2018 4:31P Dictated by : JOJO HOWARD MD This examination was interpreted and the report reviewed and electronically signed by: JOJO HOWARD MD on Mar 19 2018 4:36PM EST [id number] PROGRESS Observed: 03/19/2018 Status: COMPLETED Source: [place] 8:50 AM [facility] HNO ID: [id number] Author: Blaire De La Torre RN Service: (none) Author Type: (none) Type: Progress Notes Filed: 03/19/2018 8:50 AM Note Text: Sandra applied to ulcer of R hallux. Covered with a 2x2 and yu. Per Richard Gonzalez provided with an orthowedge shoe, size L, and instructed/educated in its application, wear, and care. All questions were answered, and patient was able to demonstrate competence with the necessary skills to utilize the above equipment. Blaire De La Torre RN CNOV Observed: 03/19/2018 Status: COMPLETED Source: [place] 8:25 AM [facility] REPOSITORY Office Visit (PODIWS) RICHARD ROY ([id number]) 1945 M Date Time Provider Department 03/19/18 8:25 AM ARMINDA OBREGON During your visit today, we recorded the following information about you: Arminda Obregon DPM 03/19/2018 8:35 AM Signed ? Arminda Obregon DPM Department of Podiatry [address] [place] [address] Dept: [phone] Dept 03/19/2018 Follow Up Podiatric Office Visit: HPI: Richard Roy is a 72 year old male. Patient presents for follow up for ulcer, R hallux. Patient has no complaints of pain. He continues to apply Santyl to wound daily. Denies n/v/f/c. Patient wearing diabetic shoes. He states peg assisted offloading shoe was causing pressure on sore. 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 - Diverticulosis of colon (without mention of hemorrhage) - Encounter for monitoring coumadin therapy 09/23/2013 INR goal 2.5-3.5 - Essential hypertension, benign 10/28/2012 - Hyperlipidemia LDL goal < 100 04/01/2012 - Pulmonary embolus, right (HCC) 09/25/2013 - Status post aortic valve repair 2004 - Thoracic aneurysm without mention of rupture - Type 2 diabetes mellitus with stage 3 chronic kidney disease, with long-term current use of insulin ([facility]ERLY [facility]) 06/20/2016 - Type II or unspecified type diabetes mellitus without mention of complication, not stated as uncontrolled FAMILY HISTORY Problem Relation Age of Onset - Heart Father Bypass and valve replaced - None Mother - Breast Cancer Sister - None Brother REVIEW OF SYSTEMS: CONSTITUTIONAL: No fevers, chills, nightsweats, unintended weight loss HEENT: Denies frequent or severe heaches, nasal congestion/sinus symptoms, problematic allergy problems. EYES: No diplopia or blurry vision. CARDIOVASCULAR: No chest pain, dyspnea, palpitations, orthopnea, PND, ankle edema. PULM: No dyspnea, unexplained cough. GI: No dysphagia/odynophagia, problematic reflux, constipation, diarrhea, changes in stool habits, hematochezia, melena. : No new urinary complaints, including dysuria, gross hematuria or pyuria. NEURO: No new balance problems, peripheral weakness/paresthesias or numbness of concern. MUSC-SKEL: No new joint pain, swelling, or erythema. PSY: No concerns regarding depression, anxiety or panic. INTEGUMENTARY: Ulcer of right foot Physical Exam: Constitutional: Pt is a well developed 72 year old male who is alert, oriented and cooperative Eyes: Following during examination. No redness or drainage. Respiratory: RR normal and nonlabored. Even breathing. No evidence of distress or shortness of breath. Psychology: Patient is engaged during conversation. Normal affect and mood. Does not appear depressed or anxious during encounter. Vascular: Dorsalis pedis and posterior tibial pulses palpable as b/l Capillary Fill time < 5 seconds to digits 1-5 b/l Skin temperature warm to warm proximal to distal b/l Hair growth present to digits Neurological: absent light touch/epicritic sensation Dermatological: Skin appears well hydrated and supple. good color, texture, turgor. Wound: Present: Location: right hallux Type: pressure Size: 1.5 cm x 1.0 cm x 0.2 cm. Ulceration is mostly granular with mild hyperkeratotic periphery Musculoskeletal/Orthopaedic: Patient has pain to palpation of right hallux ASSESSMENT: (E11.621, L97.512) Diabetic ulcer of toe of right foot associated with type 2 diabetes mellitus, with fat layer exposed (HCC) (primary encounter diagnosis) PLAN: 1. History and physical examination performed. 2. Discussed ulceration of right hallux. Ulceration is larger today and I feel this is because patient is not staying off his foot. He has been given peg assisted offloading in past but he states this causes more pressure. Will give him forefoot offloading shoe and he is instructed to use with cane or walker. Offered total contact cast but he declined 3. Will have him switch from santyl to sandra and he will apply daily 4. Sharp debridement thru dermis, epidermis, subcutaneous tissue was performed today with tissue nippers. Bleeding present and controlled with pressure. 5. Will get f/u xrays today. 6. Patient informed that if this does not heal, he could be at risk of amputation of toe. 7. Offered 2nd opinion ant wound clinic but he declined. WINSOME Young RN 03/19/2018 8:33 AM Signed Stop applying Santyl to wound Start applying Sandra every day to wound. Blaire De La Torre RN 03/19/2018 8:50 AM Signed Sandra applied to ulcer of R hallux. Covered with a 2x[address] Obregon provided with an orthowedge shoe, size L, and instructed/educated in its application, wear, and care. All questions were answered, and patient was able to demonstrate competence with the necessary skills to utilize the above equipment. 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 type 2 diabetes mellitus, with fat layer exposed (HCC) [E11.621, L97.512] Order(s):XR FOOT GENERAL 3V AP/LAT/OBL RT [[id number]] Order #: [id number] FUTURE Prescriptions as of 03/19/2018 Sig: COLLAGENASE CLOSTRIDIUM HISTO* Apply 1 application to affect* METFORMIN ER 500 MG TABLET,EX* Take 2 tablets by mouth twice* ATORVASTATIN 10 MG TABLET TAKE 1 TABLET BY MOUTH DAILY * INSULIN DETEMIR (U-100) 100 U* Inject 34 Units subcutaneousl* LOSARTAN 50 MG TABLET Take 1 tablet by mouth once d* BLOOD SUGAR DIAGNOSTIC STRIPS Test blood sugar(s) 5 times d* CHLORTHALIDONE 25 MG TABLET TAKE 1 TABLET BY MOUTH ONCE D* WARFARIN 5 MG TABLET TAKE 5mg on Sundays, 10 mg on* DULAGLUTIDE 1.5 MG/0.5 ML SUB* Inject 1.5 mg subcutaneously * PIOGLITAZONE 30 MG TABLET Take 1 tablet by mouth once d* METOPROLOL SUCCINATE ER 200 M* TAKE 1 TABLET BY MOUTH ONCE D* WARFARIN 5 MG TABLET TAKE 1 TAB BY MOUTH ON SATURDAY* ASPIRIN 81 MG TABLET,DELAYED * Take 1 tablet by mouth once d* INSULIN SYRINGE-NEEDLE U-100 * Use 1 syringe for insulin inj* Problem List As Of Date 03/19/2018 Noted Resolved Sciatica [M54.30] INVALID FOR*06/20/2016 Diabetes mellitus with neurological manifestati*INVALID FOR* Abscess [L02.91] INVALID FOR*06/20/2016 Non-healing surgical wound [T81.89XA] INVALID FOR*06/20/2016 Cellulitis and abscess [L03.90, L02.91] INVALID FOR*06/20/2016 Skin lesion [L98.9] INVALID FOR*06/20/2016 Hyperlipidemia with target LDL less than 100 [E*INVALID FOR* Essential hypertension, benign [I10] INVALID FOR* Morbid obesity with BMI of 40.0-44.9, adult (HC*INVALID FOR*08/19/2017 Encounter for monitoring coumadin therapy [Z51.*INVALID FOR* More... Pulmonary embolus, right (HCC) [I26.99] INVALID FOR*08/19/2017 Callus of foot [L84] INVALID FOR* Tinea of nail [B35.1] INVALID FOR* Cholelithiasis [K80.20] INVALID FOR* S/P aortic valve replacement [Z95.2] INVALID FOR*06/20/2016 Status post aortic valve repair [Z98.890] INVALID FOR* Type 2 diabetes mellitus with stage 3 chronic k*INVALID FOR* Obesity, Class II, BMI 35-39.9 [E66.9] INVALID FOR* Other instructions from your clinician: Stop applying Santyl to wound Start applying Sandra every day to wound. Disposition: Return in about 1 week (around 03/26/2018) for ulcer, R hallux. Follow-up and Disposition History Recorded Encounter Status:Closed by ARMINDA OBREGON DPM on 03/19/18 PROGRESS Observed: 03/19/2018 Status: COMPLETED Source: [place] 8:18 AM [facility] REPOSITORY [facility] ID: [id number] Author: Arminda Obregon Service: (none) Author Type: Physician Type: Progress Notes Filed: 03/19/2018 8:35 AM Note Text: ? Arminda Obregon DPM Department of Podiatry [address] [place] [address] Dept: [phone] Dept 03/19/2018 Follow Up Podiatric Office Visit: HPI: Richard Roy is a 72 year old male. Patient presents for follow up for ulcer, R hallux. Patient has no complaints of pain. He continues to apply Santyl to wound daily. Denies n/v/f/c. Patient wearing diabetic shoes. He states peg assisted offloading shoe was causing pressure on sore. 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 - Diverticulosis of colon (without mention of hemorrhage) - Encounter for monitoring coumadin therapy 09/23/2013 INR goal 2.5-3.5 - Essential hypertension, benign 10/28/2012 - Hyperlipidemia LDL goal < 100 04/01/2012 - Pulmonary embolus, right (HCC) 09/25/2013 - Status post aortic valve repair 2004 - Thoracic aneurysm without mention of rupture - Type 2 diabetes mellitus with stage 3 chronic kidney disease, with long-term current use of insulin ([facility]LY [facility]) 06/20/2016 - Type II or unspecified type diabetes mellitus without mention of complication, not stated as uncontrolled FAMILY HISTORY Problem Relation Age of Onset - Heart Father Bypass and valve replaced - None Mother - Breast Cancer Sister - None Brother REVIEW OF SYSTEMS: CONSTITUTIONAL: No fevers, chills, nightsweats, unintended weight loss HEENT: Denies frequent or severe heaches, nasal congestion/sinus symptoms, problematic allergy problems. EYES: No diplopia or blurry vision. CARDIOVASCULAR: No chest pain, dyspnea, palpitations, orthopnea, PND, ankle edema. PULM: No dyspnea, unexplained cough. GI: No dysphagia/odynophagia, problematic reflux, constipation, diarrhea, changes in stool habits, hematochezia, melena. : No new urinary complaints, including dysuria, gross hematuria or pyuria. NEURO: No new balance problems, peripheral weakness/paresthesias or numbness of concern. MUSC-SKEL: No new joint pain, swelling, or erythema. PSY: No concerns regarding depression, anxiety or panic. INTEGUMENTARY: Ulcer of right foot Physical Exam: Constitutional: Pt is a well developed 72 year old male who is alert, oriented and cooperative Eyes: Following during examination. No redness or drainage. Respiratory: RR normal and nonlabored. Even breathing. No evidence of distress or shortness of breath. Psychology: Patient is engaged during conversation. Normal affect and mood. Does not appear depressed or anxious during encounter. Vascular: Dorsalis pedis and posterior tibial pulses palpable as b/l Capillary Fill time < 5 seconds to digits 1-5 b/l Skin temperature warm to warm proximal to distal b/l Hair growth present to digits Neurological: absent light touch/epicritic sensation Dermatological: Skin appears well hydrated and supple. good color, texture, turgor. Wound: Present: Location: right hallux Type: pressure Size: 1.5 cm x 1.0 cm x 0.2 cm. Ulceration is mostly granular with mild hyperkeratotic periphery Musculoskeletal/Orthopaedic: Patient has pain to palpation of right hallux ASSESSMENT: (E11.621, L97.512) Diabetic ulcer of toe of right foot associated with type 2 diabetes mellitus, with fat layer exposed (HCC) (primary encounter diagnosis) PLAN: 1. History and physical examination performed. 2. Discussed ulceration of right hallux. Ulceration is larger today and I feel this is because patient is not staying off his foot. He has been given peg assisted offloading in past but he states this causes more pressure. Will give him forefoot offloading shoe and he is instructed to use with cane or walker. Offered total contact cast but he declined 3. Will have him switch from santyl to sandra and he will apply daily 4. Sharp debridement thru dermis, epidermis, subcutaneous tissue was performed today with tissue nippers. Bleeding present and controlled with pressure. 5. Will get f/u xrays today. 6. Patient informed that if this does not heal, he could be at risk of amputation of toe. 7. Offered 2nd opinion ant wound clinic but he declined. Arminda Obregon DPM CNOV Observed: 03/12/2018 Status: COMPLETED Source: [place] 8:10 AM [facility] REPOSITORY Office Visit (PODIWS) RICHARD ROY ([id number]) 1945 M Date Time Provider Department 03/12/18 8:10 AM ARMINDA OBREGON PODIWS During your visit today, we recorded the following information about you: Arminda Obregon DPM 03/12/2018 8:38 AM Signed ? Arminda Obregon DPM Department of Podiatry [address] [facility] [address] Dept: [phone] Dept 03/12/2018 Follow Up Podiatric Office Visit: HPI: Richard Roy is a 72 year old male. Patient presents for follow up for ulcer, R plantar hallux. Patient has no complaints of pain. He presents to clinic wearing diabetic shoe on his R foot. He states that he stopped wearing the boot and instead just stays off his foot. He states the boot is causing him more pain. He continues to apply Santyl daily. Denies n/v/f/c. Arminda Obregon DPM PAST MEDICAL HISTORY Diagnosis Date - Cholelithiasis 09/25/2013 - Diabetes mellitus with neurological manifestation ([facility]LY [facility]) 09/08/2010 - Diverticulosis of colon (without mention of hemorrhage) - Encounter for monitoring coumadin therapy 09/23/2013 INR goal 2.5-3.5 - Essential hypertension, benign 10/28/2012 - Hyperlipidemia LDL goal < 100 04/01/2012 - Pulmonary embolus, right (HCC) 09/25/2013 - Status post aortic valve repair 2004 - Thoracic aneurysm without mention of rupture - Type 2 diabetes mellitus with stage 3 chronic kidney disease, with long-term current use of insulin ([facility]) 06/20/2016 - Type II or unspecified type diabetes mellitus without mention of complication, not stated as uncontrolled FAMILY HISTORY Problem Relation Age of Onset - Heart Father Bypass and valve replaced - None Mother - Breast Cancer Sister - None Brother REVIEW OF SYSTEMS: CONSTITUTIONAL: No fevers, chills, nightsweats, unintended weight loss HEENT: Denies frequent or severe heaches, nasal congestion/sinus symptoms, problematic allergy problems. EYES: No diplopia or blurry vision. CARDIOVASCULAR: No chest pain, dyspnea, palpitations, orthopnea, PND, ankle edema. PULM: No dyspnea, unexplained cough. GI: No dysphagia/odynophagia, problematic reflux, constipation, diarrhea, changes in stool habits, hematochezia, melena. : No new urinary complaints, including dysuria, gross hematuria or pyuria. NEURO: No new balance problems, peripheral weakness/paresthesias or numbness of concern. MUSC-SKEL: No new joint pain, swelling, or erythema. PSY: No concerns regarding depression, anxiety or panic. INTEGUMENTARY: No new skin changes (rash, new or changing mole, new growth) Physical Exam: Constitutional: Pt is a well developed 72 year old male who is alert, oriented and cooperative Eyes: Following during examination. No redness or drainage. Respiratory: RR normal and nonlabored. Even breathing. No evidence of distress or shortness of breath. Psychology: Patient is engaged during conversation. Normal affect and mood. Does not appear depressed or anxious during encounter. Vascular: Dorsalis pedis and posterior tibial pulses palpable right Capillary Fill time < 5 seconds to digits 1-5 right Skin temperature warm to warm proximal to distal right Hair growth present to digits Neurological: diminished light touch/epicritic sensation Dermatological: Wound: Present: Location: plantar right hallux Type: pressure Size: 1.1 cm x 1.0 cm x 0.3 cm. Appearance: mostly granular with some fibrotic slough. No exposed tendon or bone. No signs of infection. No signs of foreign body. Musculoskeletal/Orthopaedic: Patient has no pain to palpation of right foot xrays reviewed. No evidence of bone infection. Small foreign body present to right great toe ASSESSMENT: (E11.621, L97.512) Diabetic ulcer of toe of right foot associated with type 2 diabetes mellitus, with fat layer exposed (HCC) (primary encounter diagnosis) (M79.5) Foreign body (FB) in soft tissue PLAN: 1. History and physical examination performed. 2. Patient was examined and informed of current findings 3. Discussed ulceration of right foot. I would prefer that patient continue with boot for offloading but he states that boot is causing pain. He has elected to wear diabetic shoes and just stay off as much as possible. Informed patient that any pressure to this would can result in slower healing and potential risk of infection and loss of toe. He understands this. Today, I debrided the ulceration with tissue nipper thru dermis, epidermis and subcutaneous tissue. Bleeding present and controlled with pressure. Continue with santyl for an additional week. Ulceration does show reduction in size. Consider sandra vs apligraf in future pending appearance of wound bed. Again stressed staying off foot and using boot if possible. 4. Reviewed foreign body on xray. No change since 2016. Discussed risk of retained foreign body vs risk of taking out. Foreign body so small and chances of removal could certainly risk tissue compromise. He would like to leave alone. 5. F/u in 1 week Arminda Obregon DPM Referring Provider: ARMINDA OBREGON [[id number]] Allergies As of Date: 03/12/2018 (No Known Allergies) Date Reviewed: 03/12/2018 Reviewed by: Blaire De La Torre RN - Fully Assessed Reason for Visit: Follow Up [171] Primary Visit Diagnosis:Diabetic ulcer of toe of right foot associated with type 2 diabetes mellitus, with fat layer exposed (HCC) [E11.621, L97.512] Other Visit Diagnosis:Foreign body (FB) in soft tissue [M79.5] Prescriptions as of 03/12/2018 Sig: COLLAGENASE CLOSTRIDIUM HISTO* Apply 1 application to affect* METFORMIN ER 500 MG TABLET,EX* Take 2 tablets by mouth twice* ATORVASTATIN 10 MG TABLET TAKE 1 TABLET BY MOUTH DAILY * INSULIN DETEMIR (U-100) 100 U* Inject 34 Units subcutaneousl* LOSARTAN 50 MG TABLET Take 1 tablet by mouth once d* BLOOD SUGAR DIAGNOSTIC STRIPS Test blood sugar(s) 5 times d* CHLORTHALIDONE 25 MG TABLET TAKE 1 TABLET BY MOUTH ONCE D* WARFARIN 5 MG TABLET TAKE 5mg on Sundays, 10 mg on* DULAGLUTIDE 1.5 MG/0.5 ML SUB* Inject 1.5 mg subcutaneously * PIOGLITAZONE 30 MG TABLET Take 1 tablet by mouth once d* METOPROLOL SUCCINATE ER 200 M* TAKE 1 TABLET BY MOUTH ONCE D* WARFARIN 5 MG TABLET TAKE 1 TAB BY MOUTH ON SATURDAY* ASPIRIN 81 MG TABLET,DELAYED * Take 1 tablet by mouth once d* INSULIN SYRINGE-NEEDLE U-100 * Use 1 syringe for insulin inj* Problem List As Of Date 03/12/2018 Noted Resolved Sciatica [M54.30] INVALID FOR*06/20/2016 Diabetes mellitus with neurological manifestati*INVALID FOR* Abscess [L02.91] INVALID FOR*06/20/2016 Non-healing surgical wound [T81.89XA] INVALID FOR*06/20/2016 Cellulitis and abscess [L03.90, L02.91] INVALID FOR*06/20/2016 Skin lesion [L98.9] INVALID FOR*06/20/2016 Hyperlipidemia with target LDL less than 100 [E*INVALID FOR* Essential hypertension, benign [I10] INVALID FOR* Morbid obesity with BMI of 40.0-44.9, adult (HC*INVALID FOR*08/19/2017 Encounter for monitoring coumadin therapy [Z51.*INVALID FOR* More... Pulmonary embolus, right (HCC) [I26.99] INVALID FOR*08/19/2017 Callus of foot [L84] INVALID FOR* Tinea of nail [B35.1] INVALID FOR* Cholelithiasis [K80.20] INVALID FOR* S/P aortic valve replacement [Z95.2] INVALID FOR*06/20/2016 Status post aortic valve repair [Z98.890] INVALID FOR* Type 2 diabetes mellitus with stage 3 chronic k*INVALID FOR* Obesity, Class II, BMI 35-39.9 [E66.9] INVALID FOR* Disposition: Return in about 1 week (around 03/19/2018) for ulcer, R hallux. Follow-up and Disposition History Recorded Encounter Status:Closed by ARMINDA OBREGON DPM on 03/12/18 PROGRESS Observed: 03/12/2018 Status: COMPLETED Source: [place] 8:08 AM [facility] [place] REPOSITORY O ID: [id number] Author: Arminda Obregon Service: (none) Author Type: Physician Type: Progress Notes Filed: 03/12/2018 8:38 AM Note Text: ? Arminda Obregon DPM Department of Podiatry [address] [place] [address] Dept: [phone] Dept 03/12/2018 Follow Up Podiatric Office Visit: HPI: Richard Roy is a 72 year old male. Patient presents for follow up for ulcer, R plantar hallux. Patient has no complaints of pain. He presents to clinic wearing diabetic shoe on his R foot. He states that he stopped wearing the boot and instead just stays off his foot. He states the boot is causing him more pain. He continues to apply Santyl daily. Denies n/v/f/c. 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 - Diverticulosis of colon (without mention of hemorrhage) - Encounter for monitoring coumadin therapy 09/23/2013 INR goal 2.5-3.5 - Essential hypertension, benign 10/28/2012 - Hyperlipidemia LDL goal < 100 04/01/2012 - Pulmonary embolus, right (HCC) 09/25/2013 - Status post aortic valve repair 2004 - Thoracic aneurysm without mention of rupture - Type 2 diabetes mellitus with stage 3 chronic kidney disease, with long-term current use of insulin (HCC) 06/20/2016 - Type II or unspecified type diabetes mellitus without mention of complication, not stated as uncontrolled FAMILY HISTORY Problem Relation Age of Onset - Heart Father Bypass and valve replaced - None Mother - Breast Cancer Sister - None Brother REVIEW OF SYSTEMS: CONSTITUTIONAL: No fevers, chills, nightsweats, unintended weight loss HEENT: Denies frequent or severe heaches, nasal congestion/sinus symptoms, problematic allergy problems. EYES: No diplopia or blurry vision. CARDIOVASCULAR: No chest pain, dyspnea, palpitations, orthopnea, PND, ankle edema. PULM: No dyspnea, unexplained cough. GI: No dysphagia/odynophagia, problematic reflux, constipation, diarrhea, changes in stool habits, hematochezia, melena. : No new urinary complaints, including dysuria, gross hematuria or pyuria. NEURO: No new balance problems, peripheral weakness/paresthesias or numbness of concern. MUSC-SKEL: No new joint pain, swelling, or erythema. PSY: No concerns regarding depression, anxiety or panic. INTEGUMENTARY: No new skin changes (rash, new or changing mole, new growth) Physical Exam: Constitutional: Pt is a well developed 72 year old male who is alert, oriented and cooperative Eyes: Following during examination. No redness or drainage. Respiratory: RR normal and nonlabored. Even breathing. No evidence of distress or shortness of breath. Psychology: Patient is engaged during conversation. Normal affect and mood. Does not appear depressed or anxious during encounter. Vascular: Dorsalis pedis and posterior tibial pulses palpable right Capillary Fill time < 5 seconds to digits 1-5 right Skin temperature warm to warm proximal to distal right Hair growth present to digits Neurological: diminished light touch/epicritic sensation Dermatological: Wound: Present: Location: plantar right hallux Type: pressure Size: 1.1 cm x 1.0 cm x 0.3 cm. Appearance: mostly granular with some fibrotic slough. No exposed tendon or bone. No signs of infection. No signs of foreign body. Musculoskeletal/Orthopaedic: Patient has no pain to palpation of right foot xrays reviewed. No evidence of bone infection. Small foreign body present to right great toe ASSESSMENT: (E11.621, L97.512) Diabetic ulcer of toe of right foot associated with type 2 diabetes mellitus, with fat layer exposed ([facility]) (primary encounter diagnosis) (M79.5) Foreign body (FB) in soft tissue PLAN: 1. History and physical examination performed. 2. Patient was examined and informed of current findings 3. Discussed ulceration of right foot. I would prefer that patient continue with boot for offloading but he states that boot is causing pain. He has elected to wear diabetic shoes and just stay off as much as possible. Informed patient that any pressure to this would can result in slower healing and potential risk of infection and loss of toe. He understands this. Today, I debrided the ulceration with tissue nipper thru dermis, epidermis and subcutaneous tissue. Bleeding present and controlled with pressure. Continue with santyl for an additional week. Ulceration does show reduction in size. Consider sandra vs apligraf in future pending appearance of wound bed. Again stressed staying off foot and using boot if possible. 4. Reviewed foreign body on xray. No change since 2016. Discussed risk of retained foreign body vs risk of taking out. Foreign body so small and chances of removal could certainly risk tissue compromise. He would like to leave alone. 5. F/u in 1 week Arminda Obregon DPM PROGRESS Observed: 03/06/2018 Status: COMPLETED Source: [place] 2:16 PM [facility] REPOSITORY HNO ID: [id number] Author: Coty Trinh (Rt) Service: (none) Author Type: Piece Maker Type: Progress Notes Filed: 03/06/2018 2:17 PM Note Text: Radiology Service Progress Note PATIENT NAME: Richard Roy DATE OF SERVICE: March 06, 2018 TIME: 2:16 PM PATIENT IDENTITY VERIFICATION COMPLETED USING TWO (2) METHODS: Patient confirmed name verbally and Date of . PATIENT GENDER DATA: Male PATIENT RELEVANT IMPLANT DATA REVIEWED: Not Applicable RADIOLOGY DEPARTMENT: General X-ray: Exam(s) Completed: Lower Extremity X-Ray(s): Foot, Right and Wt. Bearing: PERIPHERAL IV DATA: Not applicable SIGNED BY: RT Ziggy March 06, 2018 2:16 PM XR FOOT 3V AP/LAT/OBL Observed: 03/06/2018 Status: F Source: [facility] 2:13 PM [facility] REPOSITORY * * *Final Report* * * DATE OF EXAM: Mar 06 2018 2:13PM [id number] [id number] - XR FOOT 3V AP/LAT/OBL RT / PROCEDURE REASON: multiple diagnoses * * * * Physician Interpretation * * * * HISTORY: Foot ulcer right great toe. COMPARISON: Comparison is made to prior study dated June 2016 RESULT: 3 views of the right foot show no acute osseous, articular or soft tissue abnormality. No evidence of gas within the soft tissues or bony destructive process. Punctate metallic radiodensity is seen within the soft tissues along the volar surface at the base of the distal phalanx which has been present since at least 2015 and does not represent an acute process. IMPRESSION: No bony destructive process. Unchanged small metallic radiodensity soft tissues volar aspect great toe. Pest Management Supervisor: PSCB Transcribe Date/Time: Mar 06 2018 3:25P Dictated by : ELLI OWENS MD This examination was interpreted and the report reviewed and electronically signed by: ELLI OWENS MD on Mar 06 2018 3:28PM EST [id number] PROGRESS Observed: 03/06/2018 Status: COMPLETED Source: [place] 12:47 PM [facility] REPOSITORY HNO ID: [id number] Author: Arminda Obregon Service: (none) Author Type: Physician Type: Progress Notes Filed: 03/07/2018 7:16 AM Note Text: Arminda Obregon DPM Department of Podiatry [address] [facility] [address] Dept: [phone] Dept Diabetic Nail Care SUBJECTIVE: Follow up office visit: This 72 year old male presents to clinic c/o painful toenails. Patient states that the nails are especially painful with shoe gear and pressure. Patient admits to being diabetic and states that their blood sugar was 172 mg/dL this AM. Patient denies claudication type symptoms when walking. Patient has ulceration to R plantar hallux that he says has been present x2-3 weeks. States that he has been putting OTC Neosporin and bandage on with no complaints. If he doesn't keep ulcer moist, he says it becomes painful. He states he has had a lot going on lately and did not have time to come in for examination. OBJECTIVE: Patient presents to clinic ambulating in Diabetic Shoes. Vasc: DP and PT pulses are palpable bilateral. CFT is less than 5 seconds bilateral. Skin temperature is warm to warm proximal to distal bilateral. There is mild edema or varicosities noted. Hair growth present. Neuro: Protective sensation is absent to the foot and toes when tested with the 5.07 SWM bilateral. Vibratory sensation is absent at the hallux bilateral. significant neurological defecits. Derm: Inspection and palpation performed. Nails 1-5 b/l are painful, discolored-yellow, thick, crumbly, dystrophic and with subungal debris. Skin is of normal turgor and texture. Full thickness, noninfected pressure ulceration present to right hallux. Ulceration measures 1.9 cm x 1.3 cm x 0.4 cm. There is mix of fibrotic and granular tissue. There is mild callus along the periphery of ulceration. Ortho: Ankle joint DF is decreased with the knee extended and decreased with knee flexed. No pain or crepitus noted. STJ, MTJ ROM are full and free of pain or crepitus. Muscle strength is 5/5 for dorsiflexors, plantarflexors, inverters, everters. 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 Nails 1-5 bilateral were debrided in length and thickness. Patient was instructed on the continued importance of diabetic foot care along with proper diet and keeping their blood sugar under control to prevent complications. Discussed ulceration of right hallux. He has ulceration that he believes has been present x 3 weeks. He did not present to office upon noticing this as he felt he did not have time for doctor visitis. The ulceration does not appear infected. Sharp debridement with tissue nippers thru dermis, epidermis, subcutaneous tissue was performed. Bleeding present and controlled with pressure. Recommend baseline xrays. Recommend offloading with boot and peg assisted offloading. He is to use walker to further decrease load to right foot. Recommend santyl to ulceration daily. F/u in 1 week. Patient understands risk of amputation. Arminda Obregon DPM CNOV Observed: 03/06/2018 Status: COMPLETED Source: [place] 12:40 PM [facility] REPOSITORY Office Visit (PODIWS) RICHARD ROY ([id number]) 1945 M Date Time Provider Department 03/06/18 12:40 PM ARMINDA OBREGON PODALEA During your visit today, we recorded the following information about you: Arminda Obregon DPM 03/07/2018 7:16 AM Signed Arminda Obregon DPM Department of Podiatry [facility] [address] [facility] [address] Dept: [phone] Dept Diabetic Nail Care SUBJECTIVE: Follow up office visit: This 72 year old male presents to clinic c/o painful toenails. Patient states that the nails are especially painful with shoe gear and pressure. Patient admits to being diabetic and states that their blood sugar was 172 mg/dL this AM. Patient denies claudication type symptoms when walking. Patient has ulceration to R plantar hallux that he says has been present x2-3 weeks. States that he has been putting OTC Neosporin and bandage on with no complaints. If he doesn't keep ulcer moist, he says it becomes painful. He states he has had a lot going on lately and did not have time to come in for examination. OBJECTIVE: Patient presents to clinic ambulating in Diabetic Shoes. Vasc: DP and PT pulses are palpable bilateral. CFT is less than 5 seconds bilateral. Skin temperature is warm to warm proximal to distal bilateral. There is mild edema or varicosities noted. Hair growth present. Neuro: Protective sensation is absent to the foot and toes when tested with the 5.07 SWM bilateral. Vibratory sensation is absent at the hallux bilateral. significant neurological defecits. Derm: Inspection and palpation performed. Nails 1-5 b/l are painful, discolored-yellow, thick, crumbly, dystrophic and with subungal debris. Skin is of normal turgor and texture. Full thickness, noninfected pressure ulceration present to right hallux. Ulceration measures 1.9 cm x 1.3 cm x 0.4 cm. There is mix of fibrotic and granular tissue. There is mild callus along the periphery of ulceration. Ortho: Ankle joint DF is decreased with the knee extended and decreased with knee flexed. No pain or crepitus noted. STJ, MTJ ROM are full and free of pain or crepitus. Muscle strength is 5/5 for dorsiflexors, plantarflexors, inverters, everters. 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 Nails 1-5 bilateral were debrided in length and thickness. Patient was instructed on the continued importance of diabetic foot care along with proper diet and keeping their blood sugar under control to prevent complications. Discussed ulceration of right hallux. He has ulceration that he believes has been present x 3 weeks. He did not present to office upon noticing this as he felt he did not have time for doctor visitis. The ulceration does not appear infected. Sharp debridement with tissue nippers thru dermis, epidermis, subcutaneous tissue was performed. Bleeding present and controlled with pressure. Recommend baseline xrays. Recommend offloading with boot and peg assisted offloading. He is to use walker to further decrease load to right foot. Recommend santyl to ulceration daily. F/u in 1 week. Patient understands risk of amputation. WINSOME Young Ma 03/06/2018 1:25 PM Signed Wound Care Supplies: Please dispense: Normal Saline, non adherent pad/gauze, yu, paper tape Length of need: 1 month Directions for use: Cleanse ulcer daily with normal saline. Apply small amount of Santyl and cover with non adherent gauze, yu, and paper tape. Number of wound(s): 1 Type of wound: DFU Location of wound: R plantar Hallux Size: 1.9 cm x 1.3 cm x 0.4 cm Diagnosis: E11.621; L97.512 Arminda Obregon DPM Referring Provider: ARMINDA OBREGON [[id number]] Allergies As of Date: 03/06/2018 (No Known Allergies) Date Reviewed: 03/06/2018 Reviewed by: Crys Cabrera Ma - Fully Assessed Reason for Visit: Diabetic Foot Care [916] Primary Visit Diagnosis:Onychomycosis [B35.1] Other Visit Diagnoses:Pain in toe of left foot [M79.675] Pain in toe of right foot [M79.674] Diabetic polyneuropathy associated with type 2 diabetes mellitus (HCC) [E11.42] Diabetic ulcer of toe of right foot associated with type 2 diabetes mellitus, with fat layer exposed (HCC) [E11.621, L97.512] Order(s):XR FOOT GENERAL 3V AP/LAT/OBL RT [[id number]] Order #: [id number] FUTURE collagenase (SANTYL) ointmentApply 1 application to affected area once daily.Disp: 30 gRfl: 3 Prescriptions as of 03/06/2018 Sig: COLLAGENASE CLOSTRIDIUM HISTO* Apply 1 application to affect* METFORMIN ER 500 MG TABLET,EX* Take 2 tablets by mouth twice* ATORVASTATIN 10 MG TABLET TAKE 1 TABLET BY MOUTH DAILY * INSULIN DETEMIR (U-100) 100 U* Inject 34 Units subcutaneousl* LOSARTAN 50 MG TABLET Take 1 tablet by mouth once d* BLOOD SUGAR DIAGNOSTIC STRIPS Test blood sugar(s) 5 times d* CHLORTHALIDONE 25 MG TABLET TAKE 1 TABLET BY MOUTH ONCE D* WARFARIN 5 MG TABLET TAKE 5mg on Sundays, 10 mg on* DULAGLUTIDE 1.5 MG/0.5 ML SUB* Inject 1.5 mg subcutaneously * PIOGLITAZONE 30 MG TABLET Take 1 tablet by mouth once d* METOPROLOL SUCCINATE ER 200 M* TAKE 1 TABLET BY MOUTH ONCE D* WARFARIN 5 MG TABLET TAKE 1 TAB BY MOUTH ON SATURDAY* ASPIRIN 81 MG TABLET,DELAYED * Take 1 tablet by mouth once d* INSULIN SYRINGE-NEEDLE U-100 * Use 1 syringe for insulin inj* Problem List As Of Date 03/06/2018 Noted Resolved Sciatica [M54.30] INVALID FOR*06/20/2016 Diabetes mellitus with neurological manifestati*INVALID FOR* Abscess [L02.91] INVALID FOR*06/20/2016 Non-healing surgical wound [T81.89XA] INVALID FOR*06/20/2016 Cellulitis and abscess [L03.90, L02.91] INVALID FOR*06/20/2016 Skin lesion [L98.9] INVALID FOR*06/20/2016 Hyperlipidemia with target LDL less than 100 [E*INVALID FOR* Essential hypertension, benign [I10] INVALID FOR* Morbid obesity with BMI of 40.0-44.9, adult (HC*INVALID FOR*08/19/2017 Encounter for monitoring coumadin therapy [Z51.*INVALID FOR* More... Pulmonary embolus, right (HCC) [I26.99] INVALID FOR*08/19/2017 Callus of foot [L84] INVALID FOR* Tinea of nail [B35.1] INVALID FOR* Cholelithiasis [K80.20] INVALID FOR* S/P aortic valve replacement [Z95.2] INVALID FOR*06/20/2016 Status post aortic valve repair [Z98.890] INVALID FOR* Type 2 diabetes mellitus with stage 3 chronic k*INVALID FOR* Obesity, Class II, BMI 35-39.9 [E66.9] INVALID FOR* Other instructions from your clinician: Wound Care Supplies: Please dispense: Normal Saline, non adherent pad/gauze, yu, paper tape Length of need: 1 month Directions for use: Cleanse ulcer daily with normal saline. Apply small amount of Santyl and cover with non adherent gauze, yu, and paper tape. Number of wound(s): 1 Type of wound: DFU Location of wound: R plantar Hallux Size: 1.9 cm x 1.3 cm x 0.4 cm Diagnosis: E11.621; L97.512 Arminda Obregon DPM Prescriptions ordered this encounter Disp Refills Start End COLLAGENASE CLOSTRIDIUM HISTOLYTICUM* 30 g 3 03/06/2018 Route: TOPICAL Sig: Apply 1 application to affected area once daily. Disposition: Return in about 1 week (around 03/13/2018) for diabetic ulcer, r hallux. Follow-up and Disposition History Recorded Encounter Status:Closed by ARMINDA OBREGON DPM on 03/07/18 PROTIME Collected: 12/26/2017 Status: F Source: [place] 10:00 AM [facility] REPOSITORY TYPE CODE TESTS RESULT OUT OF RANGE REFERENCE UNITS LAB PSEC 9.7-13.0 sec High PT Sec 31.1 LAB INR 0.9-1.3 High PT INR 3.2 Result Comment: Vitamin K Antagonist (VKA) Therapeutic Range: INR 2 to 3 (Target INR of 2.5) Note: For patients treated with VKA drugs, such as warfarin, the [place] [employer] 2012 Guideline recommends a therapeutic INR range of 2 to 3 (target INR of 2.5). This recommendation includes high-risk patients with antiphospholipid syndrome with previous arterial or venous thromboembolism, current-generation mechanical or bioprosthetic aortic heart valve replacement. Note: Patients with mechanical aortic valve replacement and additional risk factors for thromboembolic events (atrial fibrillation, previous thromboembolism, LV dysfunction, hypercoagulable conditions) or an older generation mechanical AVR (i.e., ball in-Cage) or any mechanical MVR should have a INR therapeutic range of 2.5 to 3.5 (target INR of 3). Demario GH, et al. Chest 2012, 141:7S-47S [place] RA, et al. [facility] 2017, 70: 252-289 Performed By: #### PT #### [facility] [employer] [address], [place] [address] PROGRESS Observed: 12/12/2017 Status: COMPLETED Source: [place] 8:28 AM [facility] REPOSITORY HNO ID: [id number] Author: Arminda Obregon Service: (none) Author Type: Physician Type: Progress Notes Filed: 12/12/2017 8:39 AM Note Text: ? Arminda Obregon DPM Department of Podiatry [address] [place] [address] Dept: [phone] Dept 12/12/2017 Follow Up Podiatric Office Visit: HPI: Richard Roy is a 72 year old male. Patient presents for follow up for callus/blister. Patient reports no pain, no open wounds, no callus. Denies any pain. Patient reports since last visit, he has been checking feet every evening and does not have any area of concern. Patient reports blood glucose 180 mg/dL this am. Physical Exam: Constitutional: Pt is a well developed 72 year old male who is alert, oriented and cooperative Eyes: Following during examination. No redness or drainage. Respiratory: RR normal and nonlabored. Even breathing. No evidence of distress or shortness of breath. Psychology: Patient is engaged during conversation. Normal affect and mood. Does not appear depressed or anxious during encounter. Vascular: Dorsalis pedis and posterior tibial pulses palpable, b/l Capillary Fill time < 5 seconds to digits 1-5 b/l Skin temperature warm to warm proximal to distal b/l Hair growth present to digits Neurological: Protective sensation absent Dermatological: Skin appears well hydrated and supple. good color, texture, turgor. Callosities absent. Open lesions absent. Musculoskeletal/Orthopaedic: Patient has no pain to palpation of b/l feet AJ ROM is full with knee extended and flexed 1st MPJ is full when loaded and no pain or crepitus are noted with ROM. MTJ, STJ are full and free of pain and crepitus. +5/5 muscle strength dorsiflexion, plantarflexion, inversion, eversion b/l ASSESSMENT: (L85.9) Hyperkeratosis (primary encounter diagnosis) Comment: Patient examined and informed of findings. Callus healed. Plan: 1. Blister healed, call if issues arise (E11.42) Diabetic polyneuropathy associated with type 2 diabetes mellitus (HCC) Comment: Discussed again the importance of checking feet daily. Avoid barefoot walking. Plan: 1. Check feet daily. RTC as scheduled for DFC The documentation for this note was completed by Crys Cabrera Ma acting as scribe for Arminda Obregon DPM. December 12, 2017 8:29 AM. I agree with the Chief Complaint, ROS, and Past Histories independently gathered by the clinical system support technician and the remaining scribed note accurately describes my personal service to the patient. Arminda Obregon DPM CNOV Observed: 12/12/2017 Status: COMPLETED Source: [place] 7:55 AM [facility] REPOSITORY Office Visit (PODIWS) RICHARD ROY ([id number]) 1945 M Date Time Provider Department 12/12/17 7:55 AM ARMINDA OBREGON PODIWS During your visit today, we recorded the following information about you: Arminda Obregon DPM 12/12/2017 8:39 AM Signed ? Arminda Obregon DPM Department of Podiatry [address] [facility] [address] Dept: [phone] Dept 12/12/2017 Follow Up Podiatric Office Visit: HPI: Richard Roy is a 72 year old male. Patient presents for follow up for callus/blister. Patient reports no pain, no open wounds, no callus. Denies any pain. Patient reports since last visit, he has been checking feet every evening and does not have any area of concern. Patient reports blood glucose 180 mg/dL this am. Physical Exam: Constitutional: Pt is a well developed 72 year old male who is alert, oriented and cooperative Eyes: Following during examination. No redness or drainage. Respiratory: RR normal and nonlabored. Even breathing. No evidence of distress or shortness of breath. Psychology: Patient is engaged during conversation. Normal affect and mood. Does not appear depressed or anxious during encounter. Vascular: Dorsalis pedis and posterior tibial pulses palpable, b/l Capillary Fill time < 5 seconds to digits 1-5 b/l Skin temperature warm to warm proximal to distal b/l Hair growth present to digits Neurological: Protective sensation absent Dermatological: Skin appears well hydrated and supple. good color, texture, turgor. Callosities absent. Open lesions absent. Musculoskeletal/Orthopaedic: Patient has no pain to palpation of b/l feet AJ ROM is full with knee extended and flexed 1st MPJ is full when loaded and no pain or crepitus are noted with ROM. MTJ, STJ are full and free of pain and crepitus. +5/5 muscle strength dorsiflexion, plantarflexion, inversion, eversion b/l ASSESSMENT: (L85.9) Hyperkeratosis (primary encounter diagnosis) Comment: Patient examined and informed of findings. Callus healed. Plan: 1. Blister healed, call if issues arise (E11.42) Diabetic polyneuropathy associated with type 2 diabetes mellitus (HCC) Comment: Discussed again the importance of checking feet daily. Avoid barefoot walking. Plan: 1. Check feet daily. RTC as scheduled for DFC The documentation for this note was completed by Crys Cabrera Ma acting as scribe for Arminda Obregon DPM. December 12, 2017 8:29 AM. I agree with the Chief Complaint, ROS, and Past Histories independently gathered by the clinical system support technician and the remaining scribed note accurately describes my personal service to the patient. Arminda Obregon DPM Referring Provider: ARMINDA OBREGON [[id number]] Allergies As of Date: 12/12/2017 (No Known Allergies) Date Reviewed: 12/12/2017 Reviewed by: Crys Cabrera Ma - Fully Assessed Reason for Visit: Follow Up [171] Primary Visit Diagnosis:Hyperkeratosis [L85.9] Other Visit Diagnosis:Diabetic polyneuropathy associated with type 2 diabetes mellitus (HCC) [E11.42] Prescriptions as of 12/12/2017 Sig: INSULIN DETEMIR (U-100) 100 U* Inject 34 Units subcutaneousl* LOSARTAN 50 MG TABLET Take 1 tablet by mouth once d* METFORMIN ER 500 MG TABLET,EX* TAKE 2 TABLETS BY MOUTH TWICE* BLOOD SUGAR DIAGNOSTIC STRIPS Test blood sugar(s) 5 times d* CHLORTHALIDONE 25 MG TABLET TAKE 1 TABLET BY MOUTH ONCE D* WARFARIN 5 MG TABLET TAKE 5mg on Sundays, 10 mg on* DULAGLUTIDE 1.5 MG/0.5 ML SUB* Inject 1.5 mg subcutaneously * PIOGLITAZONE 30 MG TABLET Take 1 tablet by mouth once d* METOPROLOL SUCCINATE ER 200 M* TAKE 1 TABLET BY MOUTH ONCE D* WARFARIN 5 MG TABLET TAKE 1 TAB BY MOUTH ON SATURDAY* ATORVASTATIN 10 MG TABLET TAKE 1 TABLET BY MOUTH DAILY * ASPIRIN 81 MG TABLET,DELAYED * Take 1 tablet by mouth once d* INSULIN SYRINGE-NEEDLE U-100 * Use 1 syringe for insulin inj* Problem List As Of Date 12/12/2017 Noted Resolved Sciatica [M54.30] INVALID FOR*06/20/2016 Diabetes mellitus with neurological manifestati*INVALID FOR* Abscess [L02.91] INVALID FOR*06/20/2016 Non-healing surgical wound [T81.89XA] INVALID FOR*06/20/2016 Cellulitis and abscess [L03.90, L02.91] INVALID FOR*06/20/2016 Skin lesion [L98.9] INVALID FOR*06/20/2016 Hyperlipidemia with target LDL less than 100 [E*INVALID FOR* Essential hypertension, benign [I10] INVALID FOR* Morbid obesity with BMI of 40.0-44.9, adult (HC*INVALID FOR*08/19/2017 Encounter for monitoring coumadin therapy [Z51.*INVALID FOR* More... Pulmonary embolus, right (HCC) [I26.99] INVALID FOR*08/19/2017 Callus of foot [L84] INVALID FOR* Tinea of nail [B35.1] INVALID FOR* Cholelithiasis [K80.20] INVALID FOR* S/P aortic valve replacement [Z95.2] INVALID FOR*06/20/2016 Status post aortic valve repair [Z98.890] INVALID FOR* Type 2 diabetes mellitus with stage 3 chronic k*INVALID FOR* Obesity, Class II, BMI 35-39.9 [E66.9] INVALID FOR* Encounter Status:Closed by ARMINDA OBREGON DPM on 12/12/17 CNOV Observed: 11/28/2017 Status: COMPLETED Source: [place] 11:25 AM [facility] REPOSITORY Office Visit (PODIWS) RICHARD ROY ([id number]) 1945 M Date Time Provider Department 11/28/17 11:25 AM TESTRAKE, ARMINDA PODIWS During your visit today, we recorded the following information about you: Armidna Obregon DPM 11/28/2017 10:12 PM Signed Arminda Obregon DPM Department of Podiatry [address] [facility] [address] Dept: [phone] Dept Diabetic Nail Care SUBJECTIVE: Follow up office visit: This 72 year old male presents to clinic c/o painful toenails. Patient states that the nails are especially painful with shoe gear and pressure. Patient admits to being diabetic and states that their blood sugar was 190 mg/dL this AM. Patient denies claudication type symptoms when walking. No other pedal complaints at this time. No change in medications or medical history since last visit. Hemoglobin A1C (%) Date Value 11/26/2017 8.1 OBJECTIVE: Patient presents to clinic ambulating in diabetic shoes. Tape is noted in left shoe. Vasc: DP and PT pulses are decreased2 bilateral. CFT is less than 5 seconds bilateral. Skin temperature is warm to cool proximal to distal bilateral. There is no edema or varicosities noted. Hair growth decreased. Neuro: Protective sensation is absent to the foot and toes when tested with the 5.07 SWM bilateral. Vibratory sensation is absent at the hallux bilateral. significant neurological defecits. Derm: Inspection and palpation performed. Nails 1-5 b/l are painful, discolored-yellow, thick, crumbly, dystrophic and with subungal debris. Skin is of normal turgor and texture. Hyperkeratosis left 5th metatarsal. No ulceration noted following debridement. NO ulcerations, scars, verruca or other lesions noted. Ortho: Ankle joint DF is decreased with the knee extended and decreased with knee flexed. No pain or crepitus noted. STJ, MTJ ROM are full and free of pain or crepitus. Muscle strength is 5/5 for dorsiflexors, plantarflexors, inverters, everters. ASSESSMENT: (B35.1) Onychomycosis (primary encounter diagnosis) Plan: 1. Patient was seen and evaluated. 2. Nails 1-5 bilateral were debrided in length and thickness. 3. Patient was instructed on the continued importance of diabetic foot care along with proper diet and keeping their blood sugar under control to prevent complications. 4. RTC 3-4 months for DFC (E11.42) Diabetic polyneuropathy associated with type 2 diabetes mellitus (HCC) Plan: Same as above (M79.674) Pain in toe of right foot Plan: Same as above (M79.675) Pain in toe of left foot Plan: Same as above (R09.89) Diminished pulses in lower extremity Will check pvr. (L85.9) Hyperkeratosis Callus debrided with tissue nippers and sanding disk. Patient informed he needs to monitor his feet closely and to look inside shoes for objects that may be rubbing on foot. Fortunately he has no ulceration today but if he does not check his future daily, he could be at risk of missing another callus/blister and this could end horribly for him. The documentation for this note was completed by Blaire De La Torre RN acting as scribe for Arminda Obregon DPM. November 28, 2017 11:24 AM. I agree with the Chief Complaint, ROS, and Past Histories independently gathered by the clinical system support technician and the remaining scribed note accurately describes my personal service to the patient. WINSOME Young RN 11/28/2017 11:41 AM Signed Schedule PVR Follow up in 2 weeks for blister, 3 months for nail care Referring Provider: ARMINDA OBREGON [[id number]] Allergies As of Date: 11/28/2017 (No Known Allergies) Date Reviewed: 11/28/2017 Reviewed by: Blaire De La Torre RN - Fully Assessed Reason for Visit: Diabetic Foot Care [916] Primary Visit Diagnosis:Onychomycosis [B35.1] Other Visit Diagnoses:Diabetic polyneuropathy associated with type 2 diabetes mellitus (HCC) [E11.42] Pain in toe of right foot [M79.674] Pain in toe of left foot [M79.675] Diminished pulses in lower extremity [R09.89] Hyperkeratosis [L85.9] Order(s):PVR ANK PRESS [facility] [[id number]] Order #: [id number] FUTURE Prescriptions as of 11/28/2017 Sig: INSULIN DETEMIR (U-100) 100 U* Inject 34 Units subcutaneousl* LOSARTAN 50 MG TABLET Take 1 tablet by mouth once d* METFORMIN ER 500 MG TABLET,EX* TAKE 2 TABLETS BY MOUTH TWICE* BLOOD SUGAR DIAGNOSTIC STRIPS Test blood sugar(s) 5 times d* CHLORTHALIDONE 25 MG TABLET TAKE 1 TABLET BY MOUTH ONCE D* WARFARIN 5 MG TABLET TAKE 5mg on Sundays, 10 mg on* DULAGLUTIDE 1.5 MG/0.5 ML SUB* Inject 1.5 mg subcutaneously * PIOGLITAZONE 30 MG TABLET Take 1 tablet by mouth once d* METOPROLOL SUCCINATE ER 200 M* TAKE 1 TABLET BY MOUTH ONCE D* WARFARIN 5 MG TABLET TAKE 1 TAB BY MOUTH ON SATURDAY* ATORVASTATIN 10 MG TABLET TAKE 1 TABLET BY MOUTH DAILY * ASPIRIN 81 MG TABLET,DELAYED * Take 1 tablet by mouth once d* INSULIN SYRINGE-NEEDLE U-100 * Use 1 syringe for insulin inj* Problem List As Of Date 11/28/2017 Noted Resolved Sciatica [M54.30] INVALID FOR*06/20/2016 Diabetes mellitus with neurological manifestati*INVALID FOR* Abscess [L02.91] INVALID FOR*06/20/2016 Non-healing surgical wound [T81.89XA] INVALID FOR*06/20/2016 Cellulitis and abscess [L03.90, L02.91] INVALID FOR*06/20/2016 Skin lesion [L98.9] INVALID FOR*06/20/2016 Hyperlipidemia with target LDL less than 100 [E*INVALID FOR* Essential hypertension, benign [I10] INVALID FOR* Morbid obesity with BMI of 40.0-44.9, adult (HC*INVALID FOR*08/19/2017 Encounter for monitoring coumadin therapy [Z51.*INVALID FOR* More... Pulmonary embolus, right (HCC) [I26.99] INVALID FOR*08/19/2017 Callus of foot [L84] INVALID FOR* Tinea of nail [B35.1] INVALID FOR* Cholelithiasis [K80.20] INVALID FOR* S/P aortic valve replacement [Z95.2] INVALID FOR*06/20/2016 Status post aortic valve repair [Z98.890] INVALID FOR* Type 2 diabetes mellitus with stage 3 chronic k*INVALID FOR* Obesity, Class II, BMI 35-39.9 [E66.9] INVALID FOR* Other instructions from your clinician: Schedule PVR Follow up in 2 weeks for blister, 3 months for nail care Disposition: Return in about 2 weeks (around 12/12/2017) for blister, right foot. Follow-up and Disposition History Recorded Encounter Status:Closed by ARMINDA OBREGON DPM on 11/28/17 PROGRESS Observed: 11/28/2017 Status: COMPLETED Source: [place] 11:24 AM [facility] RE[facility] HNO ID: [id number] Author: Arminda Obregon Service: (none) Author Type: Physician Type: Progress Notes Filed: 11/28/2017 10:12 PM Note Text: Arminda Obregon DPM Department of Podiatry [address] [facility] [address] Dept: [phone] Dept Diabetic Nail Care SUBJECTIVE: Follow up office visit: This 72 year old male presents to clinic c/o painful toenails. Patient states that the nails are especially painful with shoe gear and pressure. Patient admits to being diabetic and states that their blood sugar was 190 mg/dL this AM. Patient denies claudication type symptoms when walking. No other pedal complaints at this time. No change in medications or medical history since last visit. Hemoglobin A1C (%) Date Value 11/26/2017 8.1 OBJECTIVE: Patient presents to clinic ambulating in diabetic shoes. Tape is noted in left shoe. Vasc: DP and PT pulses are decreased2 bilateral. CFT is less than 5 seconds bilateral. Skin temperature is warm to cool proximal to distal bilateral. There is no edema or varicosities noted. Hair growth decreased. Neuro: Protective sensation is absent to the foot and toes when tested with the 5.07 SWM bilateral. Vibratory sensation is absent at the hallux bilateral. significant neurological defecits. Derm: Inspection and palpation performed. Nails 1-5 b/l are painful, discolored-yellow, thick, crumbly, dystrophic and with subungal debris. Skin is of normal turgor and texture. Hyperkeratosis left 5th metatarsal. No ulceration noted following debridement. NO ulcerations, scars, verruca or other lesions noted. Ortho: Ankle joint DF is decreased with the knee extended and decreased with knee flexed. No pain or crepitus noted. STJ, MTJ ROM are full and free of pain or crepitus. Muscle strength is 5/5 for dorsiflexors, plantarflexors, inverters, everters. ASSESSMENT: (B35.1) Onychomycosis (primary encounter diagnosis) Plan: 1. Patient was seen and evaluated. 2. Nails 1-5 bilateral were debrided in length and thickness. 3. Patient was instructed on the continued importance of diabetic foot care along with proper diet and keeping their blood sugar under control to prevent complications. 4. RTC 3-4 months for DFC (E11.42) Diabetic polyneuropathy associated with type 2 diabetes mellitus (HCC) Plan: Same as above (M79.674) Pain in toe of right foot Plan: Same as above (M79.675) Pain in toe of left foot Plan: Same as above (R09.89) Diminished pulses in lower extremity Will check pvr. (L85.9) Hyperkeratosis Callus debrided with tissue nippers and sanding disk. Patient informed he needs to monitor his feet closely and to look inside shoes for objects that may be rubbing on foot. Fortunately he has no ulceration today but if he does not check his future daily, he could be at risk of missing another callus/blister and this could end horribly for him. The documentation for this note was completed by Blaire De La Torre RN acting as scribe for Arminda Obregon DPM. November 28, 2017 11:24 AM. I agree with the Chief Complaint, ROS, and Past Histories independently gathered by the clinical system support technician and the remaining scribed note accurately describes my personal service to the patient. Arminda Obregon DPM PROGRESS Observed: 11/27/2017 Status: COMPLETED Source: [place] 1:07 PM [facility] REPOSITORY HNO ID: [id number] Author: Dmitry Roberto III Service: (none) Author Type: Physician Type: Progress Notes Filed: 11/27/2017 1:07 PM Note Text: , 1. Continue Same coumadin dose. Recheck INR in 1 mo. 2. Though the diabetic control is slightly improved, it is not at goal of less than 7.0. You must commit to a better diabetic diet and continue your regular exercise. Increase levemir 34 units twice per day. Recheck labs in 3 months Dmitry Roberto III MD PROTIME Collected: 11/26/2017 Status: F Source: [place] 8:31 AM [facility] REPOSITORY TYPE CODE TESTS RESULT OUT OF RANGE REFERENCE UNITS LAB PSEC 9.7-13.0 sec High PT Sec 20.5 LAB INR 0.9-1.3 High PT INR 2.1 Result Comment: Vitamin K Antagonist (VKA) Therapeutic Range: INR 2 to 3 (Target INR of 2.5) Note: For patients treated with VKA drugs, such as warfarin, the [place] [employer] 2012 Guideline recommends a therapeutic INR range of 2 to 3 (target INR of 2.5). This recommendation includes high-risk patients with antiphospholipid syndrome with previous arterial or venous thromboembolism, current-generation mechanical or bioprosthetic aortic heart valve replacement. Note: Patients with mechanical aortic valve replacement and additional risk factors for thromboembolic events (atrial fibrillation, previous thromboembolism, LV dysfunction, hypercoagulable conditions) or an older generation mechanical AVR (i.e., ball in-Cage) or any mechanical MVR should have a INR therapeutic range of 2.5 to 3.5 (target INR of 3). Demario GH, et al. Chest 2012, 141:7S-47S [place] RA, et al. [facility] 2017, 70: 252-289 Performed By: #### PT, BMP, LIPB, HBA1C #### [facility] [address] [address] BASIC METABOLIC PANL Collected: 11/26/2017 Status: F Source: [place] 8:31 AM [facility] REPOSITORY TYPE CODE TESTS RESULT OUT OF REFERENCE UNITS RANGE LAB GLU 74-99 mg/dL High Glucose 241 Result Comment: The [place] [employer] Association (ADA) provides guidance for cutoff values for fasting glucose and random glucose. The ADA defines fasting as no caloric intake for at least 8 hours. Fas ting plasma glucose results between 100 to 125 mg/dL indicate increased risk for diabetes (prediabetes). Fasting plasma glucose results greater than or equal to 126 mg/dL meet the criteria for diagnosis of diabetes. In the absence of unequivocal hyperglycemia, results should be confirmed by repeat testing. In a patient with classic symptoms of hyperglycemia or hyperglycemic crisis, random plasma glucose results greater than or equal to 200 mg/dL meet the criteria for diagnosis of diabetes. Reference: Standards of Medical Care in Diabetes 2016, [place] [employer]. Diabetes Care. 2016.39(Suppl 1). LAB BUN 9-24 mg/dL BUN High 28 LAB CRET 0.73-1.22 mg/dL Creatinine High 1.59 LAB NA 136-144 mmol/L Sodium 140 LAB K 3.7-5.1 mmol/L Potassium 3.8 LAB CL 97-105 mmol/L Low Chloride 96 LAB CO2 22-30 mmol/L CO2 27 LAB AGAP 9-18 mmol/L Anion Gap 17 LAB CA 8.5-10.2 mg/dL Calcium, Total 9.6 LAB GFRAA eGFR- Amer. 52 LAB GFRNAA . eGFR-All Other Races 43 Result Comment: eGFR (Estimated GFR) Units of measure: mL/min/1.73 meters squared eGFR is derived from the reexpressed MDRD Study equation using the following parameters: serum creatinine, age, gender and race. The creatinine assay has been calibrated to be traceable to IDMS. An eGFR <60 mL/min/1.73m2 for >3 months is consistent with chronic kidney disease. Refer to KDOQI guidelines for clinical interpretation. In patients with unstable renal function, e.g. those with acute kidney injury, the eGFR may not accurately reflect actual GFR. Performed By: #### PT, BMP, LIPB, HBA1C #### [facility] [address] [address] LIPID PANEL, BASIC Collected: 11/26/2017 Status: F Source: [place] 8:31 AM [facility] REPOSITORY TYPE CODE TESTS RESULT OUT OF REFERENCE UNITS RANGE LAB CHOL <200 mg/dL Cholesterol 148 Result Comment: <200 mg/dL, Desirable 200-239 mg/dL, Borderline high >239 mg/dL, High LAB TRIGLY <150 mg/dL Triglyceride High 337 Result Comment: <150 mg/dL, Normal 150-199 mg/dL, Borderline high 200-499 mg/dL, High >499 mg/dL, Very high LAB HDL >39 mg/dL HDL-Cholesterol Low 32 Result Comment: 40-59 mg/dL, Acceptable >59 mg/dL, High: Negative risk factor for coronary heart disease <40 mg/dL, Low: Positive risk factor for coronary heart disease LAB LDL <100 mg/dL LDL-Cholesterol 49 Result Comment: <100 mg/dL, Optimal 100-129 mg/dL, Near optimal/above optimal 130-159 mg/dL, Borderline high 160-189 mg/dL, High >189 mg/dL, Very high Secondary prevention optimal LDL Cholesterol levels are recommended to be < 70 mg/dL LAB NONHDL <130 mg/dL Non HDL Cholesterol 116 Result Comment: <130 mg/dL, Optimal 130-159 mg/dL, Near optimal/above optimal 160-189 mg/dL, Borderline high 190-219 mg/dL, High >219 mg/dL, Very high Secondary prevention optimal non HDL Cholesterol levels are recommended to be < 100 mg/dL LAB FT hrs Fasting Time 2 LAB VLDL <30 mg/dL High VLDL Cholesterol 67 LAB TCHDL <5.10 TC:HDL Ratio 4.63 LAB LDLHDL <2.54 LDL:HDL Ratio 1.53 Result Comment: Reference: 1. National Cholesterol Education Program ATP III Guideline At-A-Glance Quick Desk Reference: National Heart, Lung, and Blood [employer]. National Institutes of Health. 2001: NIH Publication No. 01-3305. 2. An International Atherosclerosis Society position paper: global recommendations for the management of dyslipidemia: executive summary, Atherosclerosis. 2014: 232(2):410-413. Performed By: #### PT, BMP, LIPB, HBA1C #### [facility] [employer] [address] [id number] HEMOGLOBIN A1C Collected: 11/26/2017 Status: F Source: [place] 8:31 AM [facility] REPOSITORY TYPE CODE TESTS RESULT OUT OF REFERENCE UNITS RANGE LAB HGBA1C 4.3-5.6 % High Hemoglobin A1c 8.1 LAB HBA0 mg/dL Est. Average Glucose 186 Result Comment: eAG: (Estimated average glucose) is a calculated value from HgbA1c and is sales representative printing of the average blood glucose level in the last 2-3 month period. Performed By: #### PT, BMP, LIPB, HBA1C #### [facility] [employer] [address] [place], [place] [address] PROGRESS Observed: 11/26/2017 Status: COMPLETED Source: [place] 8:03 AM [facility] REPOSITORY HNO ID: [id number] Author: Dmitry Roberto III Service: (none) Author Type: Physician Type: Progress Notes Filed: 11/26/2017 8:21 AM Note Text: SUBJECTIVE: This is a 72 year old male that is here today for Chronic Medical Conditions. 1. diabetes mellitus--treadmill 30 min/day. Fair diet. home glu 160-200. 2. hypertension 3. hyperlipidemia no chest pain, angina, , mild decrease in vision with known cataract but no retinopathy. PAST MEDICAL HISTORY Diagnosis Date - Cholelithiasis 09/25/2013 - Diabetes mellitus with neurological manifestation (HCC) 09/08/2010 - Diverticulosis of colon (without mention of hemorrhage) - Encounter for monitoring coumadin therapy 09/23/2013 INR goal 2.5-3.5 - Essential hypertension, benign 10/28/2012 - Hyperlipidemia LDL goal < 100 04/01/2012 - Pulmonary embolus, right (HCC) 09/25/2013 - Status post aortic valve repair 2004 - Thoracic aneurysm without mention of rupture - Type 2 diabetes mellitus with stage 3 chronic kidney disease, with long-term current use of insulin ([facility]) 06/20/2016 - Type II or unspecified type diabetes mellitus without mention of complication, not stated as uncontrolled Current Outpatient Prescriptions on File Prior to Visit: metFORMIN ER (GLUCOPHAGE XR) 500 mg 24 hr tablet TAKE 2 TABLETS BY MOUTH TWICE DAILY WITH MEALS. blood sugar diagnostic ([employer] ULTRA TEST) test strip Test blood sugar(s) 5 times daily. Dx: E11.49. Insulin: Yes chlorthalidone (HYGROTON) 25 mg tablet TAKE 1 TABLET BY MOUTH ONCE DAILY. warfarin (COUMADIN) 5 mg tablet TAKE 5mg on Sundays, 10 mg on ALL OTHER DAYS dulaglutide (TRULICITY) 1.5 mg/0.5 mL pnij Inject 1.5 mg subcutaneously once each week. Inject once per week. Discard Pen After pioglitazone (ACTOS) 30 mg tablet Take 1 tablet by mouth once daily. metoprolol succinate ER (TOPROL XL) 200 mg 24 hr tablet TAKE 1 TABLET BY MOUTH ONCE DAILY. warfarin (COUMADIN) 5 mg tablet TAKE 1 TAB BY MOUTH ON SUNDAYS AND THURSDAYS, THEN TAKE 2 TABS BY MOUTH ONCE DAILY ON ALL OTHER DAYS losartan (COZAAR) 50 mg tablet TAKE 1 TABLET BY MOUTH ONCE DAILY. atorvastatin (LIPITOR) 10 mg tablet TAKE 1 TABLET BY MOUTH DAILY AT BEDTIME. FOR CHOLESTEROL. insulin detemir (LEVEMIR) 100 unit/mL injection Inject 32 Units subcutaneously twice daily DX: E11.49, E11.22 aspirin, enteric coated (ASPIRIN LOW DOSE) 81 mg EC tablet Take 1 tablet by mouth once daily. Insulin Syringe-Needle U-100 (BD INSULIN SYRINGE UF II) 0.5 mL 31 gauge x 5/16 syrg Use 1 syringe for insulin injections five (5) times daily as directed. DX: 250.60 Insulin: Yes No current facility-administered medications on file prior to visit. FAMILY HISTORY Problem Relation Age of Onset - Heart Father Bypass and valve replaced - None Mother - Breast Cancer Sister - None Brother Social History Substance Use Topics - Smoking status: Never Smoker - Smokeless tobacco: Former User - Alcohol use No BP 116/65 Pulse 73 Resp 18 Wt 127.9 kg (282 lb) BMI 37.21 kg/m? . OBJECTIVE: APPEARANCE Well appearing, alert, in no acute distress, well-hydrated, well nourished., Obese ASSESSMENT: diabetes mellitus II hypertension--at goal hyperlipidemia PLAN: healthy weight losing diet and regular exercise eat less sugar, bread, potato, pasta, rice, corn, corn syrup, saturated fats await lab results eye exam up coming return to office 3-6 mo DOMINGO Lucio MD Observed: 11/26/2017 Status: COMPLETED Source: [place] 8:00 AM [facility] REPOSITORY Office Visit (FAMPWS) RICHARD ROY ([id number]) 1945 M Date Time Provider Department 11/26/17 8:00 AM DMITRY ROBERTO III During your visit today, we recorded the following information about you: Pulse Respiration Blood pressure Weight 73/minute 18/minute 116/65 127.9 kg Dmitry Roberto III 11/26/2017 8:21 AM Signed SUBJECTIVE: This is a 72 year old male that is here today for Chronic Medical Conditions. 1. diabetes mellitus--treadmill 30 min/day. Fair diet. home glu 160-200. 2. hypertension 3. hyperlipidemia no chest pain, angina, , mild decrease in vision with known cataract but no retinopathy. PAST MEDICAL HISTORY Diagnosis Date - Cholelithiasis 09/25/2013 - Diabetes mellitus with neurological manifestation (HCC) 09/08/2010 - Diverticulosis of colon (without mention of hemorrhage) - Encounter for monitoring coumadin therapy 09/23/2013 INR goal 2.5-3.5 - Essential hypertension, benign 10/28/2012 - Hyperlipidemia LDL goal < 100 04/01/2012 - Pulmonary embolus, right (HCC) 09/25/2013 - Status post aortic valve repair 2004 - Thoracic aneurysm without mention of rupture - Type 2 diabetes mellitus with stage 3 chronic kidney disease, with long-term current use of insulin ([facility]) 06/20/2016 - Type II or unspecified type diabetes mellitus without mention of complication, not stated as uncontrolled Current Outpatient Prescriptions on File Prior to Visit: metFORMIN ER (GLUCOPHAGE XR) 500 mg 24 hr tablet TAKE 2 TABLETS BY MOUTH TWICE DAILY WITH MEALS. blood sugar diagnostic ([employer] ULTRA TEST) test strip Test blood sugar(s) 5 times daily. Dx: E11.49. Insulin: Yes chlorthalidone (HYGROTON) 25 mg tablet TAKE 1 TABLET BY MOUTH ONCE DAILY. warfarin (COUMADIN) 5 mg tablet TAKE 5mg on Sundays, 10 mg on ALL OTHER DAYS dulaglutide (TRULICITY) 1.5 mg/0.5 mL pnij Inject 1.5 mg subcutaneously once each week. Inject once per week. Discard Pen After pioglitazone (ACTOS) 30 mg tablet Take 1 tablet by mouth once daily. metoprolol succinate ER (TOPROL XL) 200 mg 24 hr tablet TAKE 1 TABLET BY MOUTH ONCE DAILY. warfarin (COUMADIN) 5 mg tablet TAKE 1 TAB BY MOUTH ON SUNDAYS AND THURSDAYS, THEN TAKE 2 TABS BY MOUTH ONCE DAILY ON ALL OTHER DAYS losartan (COZAAR) 50 mg tablet TAKE 1 TABLET BY MOUTH ONCE DAILY. atorvastatin (LIPITOR) 10 mg tablet TAKE 1 TABLET BY MOUTH DAILY AT BEDTIME. FOR CHOLESTEROL. insulin detemir (LEVEMIR) 100 unit/mL injection Inject 32 Units subcutaneously twice daily DX: E11.49, E11.22 aspirin, enteric coated (ASPIRIN LOW DOSE) 81 mg EC tablet Take 1 tablet by mouth once daily. Insulin Syringe-Needle U-100 (BD INSULIN SYRINGE UF II) 0.5 mL 31 gauge x 5/16 syrg Use 1 syringe for insulin injections five (5) times daily as directed. DX: 250.60 Insulin: Yes No current facility-administered medications on file prior to visit. FAMILY HISTORY Problem Relation Age of Onset - Heart Father Bypass and valve replaced - None Mother - Breast Cancer Sister - None Brother Social History Substance Use Topics - Smoking status: Never Smoker - Smokeless tobacco: Former User - Alcohol use No BP 116/65 Pulse 73 Resp 18 Wt 127.9 kg (282 lb) BMI 37.21 kg/m? . OBJECTIVE: APPEARANCE Well appearing, alert, in no acute distress, well- hydrated, well nourished., Obese ASSESSMENT: diabetes mellitus II hypertension--at goal hyperlipidemia PLAN: healthy weight losing diet and regular exercise eat less sugar, bread, potato, pasta, rice, corn, corn syrup, saturated fats await lab results eye exam up coming return to office 3-6 mo DOMINGO Lucio MD, Frank A III 11/26/2017 8:15 AM Signed PLAN: healthy weight losing diet and regular exercise eat less sugar, bread, potato, pasta, rice, corn, corn syrup, saturated fats await lab results eye exam up coming return to office 3-6 mo Dmitry Roberto III MD Referring Provider: DMITRY ROBERTO III [[id number]] Allergies As of Date: 11/26/2017 (No Known Allergies) Date Reviewed: 11/26/2017 Reviewed by: Annette Garnett ([facility])JENNIFER - Fully Assessed Reason for Visit: 3 month office visit [Other] Primary Visit Diagnosis:Type 2 diabetes mellitus with diabetic neuropathy, with long-term current use of insulin (HCC) [E11.40, Z79.4] Other Visit Diagnoses:Hyperlipidemia with target LDL less than 100 [E78.5] Essential hypertension, benign [I10] Type 2 diabetes mellitus with stage 3 chronic kidney disease, with long-term current use of insulin (HCC) [E11.22, N18.3, Z79.4] Obesity, Class II, BMI 35-39.9 [E66.9] Order(s):losartan (COZAAR) 50 mg tabletTake 1 tablet by mouth once daily.Disp: 30 tabletRfl: 11 Prescriptions as of 11/26/2017 Sig: LOSARTAN 50 MG TABLET Take 1 tablet by mouth once d* METFORMIN ER 500 MG TABLET,EX* TAKE 2 TABLETS BY MOUTH TWICE* BLOOD SUGAR DIAGNOSTIC STRIPS Test blood sugar(s) 5 times d* CHLORTHALIDONE 25 MG TABLET TAKE 1 TABLET BY MOUTH ONCE D* WARFARIN 5 MG TABLET TAKE 5mg on Sundays, 10 mg on* DULAGLUTIDE 1.5 MG/0.5 ML SUB* Inject 1.5 mg subcutaneously * PIOGLITAZONE 30 MG TABLET Take 1 tablet by mouth once d* METOPROLOL SUCCINATE ER 200 M* TAKE 1 TABLET BY MOUTH ONCE D* WARFARIN 5 MG TABLET TAKE 1 TAB BY MOUTH ON SATURDAY* ATORVASTATIN 10 MG TABLET TAKE 1 TABLET BY MOUTH DAILY * INSULIN DETEMIR (U-100) 100 U* Inject 32 Units subcutaneousl* ASPIRIN 81 MG TABLET,DELAYED * Take 1 tablet by mouth once d* INSULIN SYRINGE-NEEDLE U-100 * Use 1 syringe for insulin inj* Problem List As Of Date 11/26/2017 Noted Resolved Sciatica [M54.30] INVALID FOR*06/20/2016 Diabetes mellitus with neurological manifestati*INVALID FOR* Abscess [L02.91] INVALID FOR*06/20/2016 Non-healing surgical wound [T81.89XA] INVALID FOR*06/20/2016 Cellulitis and abscess [L03.90, L02.91] INVALID FOR*06/20/2016 Skin lesion [L98.9] INVALID FOR*06/20/2016 Hyperlipidemia with target LDL less than 100 [E*INVALID FOR* Essential hypertension, benign [I10] INVALID FOR* Morbid obesity with BMI of 40.0-44.9, adult (HC*INVALID FOR*08/19/2017 Encounter for monitoring coumadin therapy [Z51.*INVALID FOR* More... Pulmonary embolus, right (HCC) [I26.99] INVALID FOR*08/19/2017 Callus of foot [L84] INVALID FOR* Tinea of nail [B35.1] INVALID FOR* Cholelithiasis [K80.20] INVALID FOR* S/P aortic valve replacement [Z95.2] INVALID FOR*06/20/2016 Status post aortic valve repair [Z98.890] INVALID FOR* Type 2 diabetes mellitus with stage 3 chronic k*INVALID FOR* Obesity, Class II, BMI 35-39.9 [E66.9] INVALID FOR* Other instructions from your clinician: PLAN: healthy weight losing diet and regular exercise eat less sugar, bread, potato, pasta, rice, corn, corn syrup, saturated fats await lab results eye exam up coming return to office 3-6 mo Dmitry Roberto III MD Prescriptions ordered this encounter Disp Refills Start End LOSARTAN 50 MG TABLET 30 t* 11 11/26/2017 Route: ORAL Sig: Take 1 tablet by mouth once daily. Medications Discontinued During This Encounter losartan (COZAAR) 50 mg tablet 30 t* 11 01/22/2017 11/26/2017 Sig: TAKE 1 TABLET BY MOUTH ONCE DAILY. Disc: Reason for discontinue is not on file. Encounter Status:Closed by DMITRY ROBERTO III, MD on 11/26/17 PROTIME Collected: 10/30/2017 Status: F Source: [place] 12:03 PM [facility] REPOSITORY TYPE CODE TESTS RESULT OUT OF RANGE REFERENCE UNITS LAB PSEC 9.7-13.0 sec High PT Sec 24.8 LAB INR 0.9-1.3 High PT INR 2.5 Result Comment: Vitamin K Antagonist (VKA) Therapeutic Range: INR 2 to 3 (Target INR of 2.5) Note: For patients treated with VKA drugs, such as warfarin, the [place] [employer] 2012 Guideline recommends a therapeutic INR range of 2 to 3 (target INR of 2.5). This recommendation includes high-risk patients with antiphospholipid syndrome with previous arterial or venous thromboembolism, current-generation mechanical or bioprosthetic aortic heart valve replacement. Note: Patients with mechanical aortic valve replacement and additional risk factors for thromboembolic events (atrial fibrillation, previous thromboembolism, LV dysfunction, hypercoagulable conditions) or an older generation mechanical AVR (i.e., ball in-Cage) or any mechanical MVR should have a INR therapeutic range of 2.5 to 3.5 (target INR of 3). Demario PLUMMER, et al. Chest 2012, 141:7S-47S [place] RA, et al. [facility] 2017, 70: 252-289 Performed By: #### PT #### [facility] [employer] [address] [place], [place] [address] PROTIME Collected: 10/09/2017 Status: F Source: [place] 1:36 PM [facility] REPOSITORY TYPE CODE TESTS RESULT OUT OF RANGE REFERENCE UNITS LAB PSEC 9.7-13.0 sec High PT Sec 29.6 LAB INR 0.9-1.3 High PT INR 3.1 Result Comment: Vitamin K Antagonist (VKA) Therapeutic Range: INR 2 to 3 (Target INR of 2.5) Note: For patients treated with VKA drugs, such as warfarin, the [place] [employer] 2012 Guideline recommends a therapeutic INR range of 2 to 3 (target INR of 2.5). This recommendation includes high-risk patients with antiphospholipid syndrome with previous arterial or venous thromboembolism, current-generation mechanical or bioprosthetic aortic heart valve replacement. Note: Patients with mechanical aortic valve replacement and additional risk factors for thromboembolic events (atrial fibrillation, previous thromboembolism, LV dysfunction, hypercoagulable conditions) or an older generation mechanical AVR (i.e., ball in-Cage) or any mechanical MVR should have a INR therapeutic range of 2.5 to 3.5 (target INR of 3). Demario PLUMMER et al. Chest 2012, 141:7S-47S [place] JETT et al. [facility] 2017, 70: 252-289 Performed By: #### PT #### [facility] [address] [place], [place] [address] PROTIME Collected: 09/11/2017 Status: F Source: [place] 10:20 AM [facility] [place] REPOSITORY TYPE CODE TESTS RESULT OUT OF RANGE REFERENCE UNITS LAB PSEC 9.7-13.0 sec High PT Sec 19.9 LAB INR 0.9-1.3 High PT INR 2.0 Result Comment: Vitamin K Antagonist (VKA) Therapeutic Range: INR 2 to 3 (Target INR of 2.5) Note: For patients treated with VKA drugs, such as warfarin, the [place] [employer] 2012 Guideline recommends a therapeutic INR range of 2 to 3 (target INR of 2.5). This recommendation includes high-risk patients with antiphospholipid syndrome with previous arterial or venous thromboembolism, current-generation mechanical or bioprosthetic aortic heart valve replacement. Note: Patients with mechanical aortic valve replacement and additional risk factors for thromboembolic events (atrial fibrillation, previous thromboembolism, LV dysfunction, hypercoagulable conditions) or an older generation mechanical AVR (i.e., ball in-Cage) or any mechanical MVR should have a INR therapeutic range of 2.5 to 3.5 (target INR of 3). Demario PLUMMER et al. Chest 2012, 141:7S-47S [place] JETT et al. [facility] 2017, 70: 252-289 Performed By: #### PT #### [facility] [employer] [address] [address] [place], [place] [address] PROTIME Collected: 08/19/2017 Status: F Source: [place] 8:45 AM [facility] REPOSITORY TYPE CODE TESTS RESULT OUT OF RANGE REFERENCE UNITS LAB PSEC 9.7-13.0 sec High PT Sec 17.2 LAB INR 0.9-1.3 High PT INR 1.7 Result Comment: Vitamin K Antagonist (VKA) Therapeutic Range: INR 2 to 3 (Target INR of 2.5) Note: For patients treated with VKA drugs, such as warfarin, the [place] [employer] 2012 Guideline recommends a therapeutic INR range of 2 to 3 (target INR of 2.5). This recommendation includes high-risk patients with antiphospholipid syndrome with previous arterial or venous thromboembolism, current-generation mechanical or bioprosthetic aortic heart valve replacement. Note: Patients with mechanical aortic valve replacement and additional risk factors for thromboembolic events (atrial fibrillation, previous thromboembolism, LV dysfunction, hypercoagulable conditions) or an older generation mechanical AVR (i.e., ball in-Cage) or any mechanical MVR should have a INR therapeutic range of 2.5 to 3.5 (target INR of 3). Demario GH, et al. Chest 2012, 141:7S-47S [place] JETT et al. [facility] 2017, 70: 252-289 Performed By: #### PT #### [facility] [employer] [address] [address] [place], [place] [address] PROGRESS Observed: 08/19/2017 Status: COMPLETED Source: [place] 8:05 AM [facility] REPOSITORY HNO ID: [id number] Author: Dmitry Roberto III Service: (none) Author Type: Physician Type: Progress Notes Filed: 08/19/2017 10:13 AM Note Text: SUBJECTIVE: This is a 71 year old male that is here today for Chronic Medical Conditions. 1. diabetes mellitus II with CKD III. No hypoglycemia. Home glu avg 220. 2. hypertension 3. hyperlipidemia. 4. hx of PE and aortic valve repair--on coumadin, but pt has not had INR checked in 2 yrs!!. No bleeding or bruising. To have dental root extraction at the end of the month. Poor diet and little exercise. Recent foot exam by seismometer operator normal per patient. No chest pain, angina, , abd pain, change in BM PAST MEDICAL HISTORY Diagnosis Date - Cholelithiasis 09/25/2013 - Diabetes mellitus with neurological manifestation ([facility]) 09/08/2010 - Diverticulosis of colon (without mention of hemorrhage) - Essential hypertension, benign 10/28/2012 - Hyperlipidemia LDL goal < 100 04/01/2012 - Pulmonary embolus, right ([facility]) 09/25/2013 - Status post aortic valve repair 2004 - Thoracic aneurysm without mention of rupture - Type 2 diabetes mellitus with stage 3 chronic kidney disease, with long-term current use of insulin ([facility]) 06/20/2016 - Type II or unspecified type diabetes mellitus without mention of complication, not stated as uncontrolled Current Outpatient Prescriptions on File Prior to Visit: metFORMIN (GLUCOPHAGE) 500 mg tablet TAKE 2 TABLETS TWICE A DAY WITH MEALS metoprolol succinate ER (TOPROL XL) 200 mg 24 hr tablet TAKE 1 TABLET BY MOUTH ONCE DAILY. warfarin (COUMADIN) 5 mg tablet TAKE 1 TABLET ON SUNDAYS AND SATURDAY AND 2 TABLETS ALL OTHER DAYS warfarin (COUMADIN) 5 mg tablet TAKE 1 TAB BY MOUTH ON SUNDAYS AND THURSDAYS, THEN TAKE 2 TABS BY MOUTH ONCE DAILY ON ALL OTHER DAYS losartan (COZAAR) 50 mg tablet TAKE 1 TABLET BY MOUTH ONCE DAILY. atorvastatin (LIPITOR) 10 mg tablet TAKE 1 TABLET BY MOUTH DAILY AT BEDTIME. FOR CHOLESTEROL. chlorthalidone (HYGROTON) 25 mg tablet TAKE 1 TABLET BY MOUTH ONCE DAILY. blood sugar diagnostic (AhandyhandUCH ULTRA TEST) test strip Test blood sugar(s) 5 times daily. Dx: E11.49. Insulin: Yes dulaglutide (TRULICITY) 0.75 mg/0.5 mL pnij Inject 0.75 mg subcutaneously once each week. Inject dose once per week. Discard Pen After pioglitazone (ACTOS) 15 mg tablet Take 1 tablet by mouth once daily. insulin detemir (LEVEMIR) 100 unit/mL injection Inject 32 Units subcutaneously twice daily DX: E11.49, E11.22 aspirin, enteric coated (ASPIRIN LOW DOSE) 81 mg EC tablet Take 1 tablet by mouth once daily. Insulin Syringe-Needle U-100 (BD INSULIN SYRINGE UF II) 0.5 mL 31 gauge x 5/16 syrg Use 1 syringe for insulin injections five (5) times daily as directed. DX: 250.60 Insulin: Yes No current facility-administered medications on file prior to visit. FAMILY HISTORY Problem Relation Age of Onset - Heart Father Bypass and valve replaced - None Mother - Breast Cancer Sister - None Brother Social History Substance Use Topics - Smoking status: Never Smoker - Smokeless tobacco: Former User - Alcohol use No BP 117/77 Pulse 63 Resp 16 Wt 128.8 kg (284 lb) BMI 37.47 kg/m2 . OBJECTIVE: APPEARANCE Well appearing, alert, in no acute distress, well-hydrated, well nourished., Obese NECK Supple, no adenopathy; thyroid symmetric, normal size, no bruits HEART RRR with normal S1 and S2, no murmurs, no gallops, no JVD appreciated LUNG clear to auscultation ABDOMEN soft, non-tender, non-distended, without organomegaly or palpable masses, no tenderness to palpation Lab Results for RICHARD ROY ( ) as of 08/19/2017 08:13 Ref. Range 08/15/2017 09:18 08/15/2017 09:21 Sodium Latest Ref Range: 136 - 144 mmol/L 135 (L) Potassium Latest Ref Range: 3.7 - 5.1 mmol/L 4.0 Chloride Latest Ref Range: 97 - 105 mmol/L 93 (L) CO2 Latest Ref Range: 22 - 30 mmol/L 29 BUN Latest Ref Range: 9 - 24 mg/dL 25 (H) Creatinine Latest Ref Range: 0.73 - 1.22 mg/dL 1.46 (H) Glucose Latest Ref Range: 74 - 99 mg/dL 245 (H) Calcium Latest Ref Range: 8.5 - 10.2 mg/dL 9.7 Anion Gap Latest Ref Range: 9 - 18 mmol/L 13 eGFR- Unknown 58 eGFR-All Other Races Latest Units: . 48 Vitamin B12 Latest Ref Range: 232 - 1245 pg/mL 312 Cholesterol, Total Latest Ref Range: <200 mg/dL 139 Triglyceride Latest Ref Range: <150 mg/dL 331 (H) Fasting Time Latest Units: hrs 11 HDL Cholesterol Latest Ref Range: >39 mg/dL 31 (L) LDL Cholesterol Latest Ref Range: <100 mg/dL 42 VLDL Cholesterol Latest Ref Range: <30 mg/dL 66 (H) TC:HDL Ratio Latest Ref Range: <5.10 4.48 LDL:HDL Ratio Latest Ref Range: <2.54 1.35 Non HDL Cholesterol Latest Ref Range: <130 mg/dL 108 Hemoglobin A1C Latest Ref Range: 4.3 - 5.6 % 8.9 (H) Estimated Average Glucose Latest Units: mg/dL 209 WBC Latest Ref Range: 3.70 - 11.00 k/uL 10.67 RBC Latest Ref Range: 4.20 - 6.00 m/uL 5.17 Hemoglobin Latest Ref Range: 13.0 - 17.0 g/dL 14.0 Hematocrit Latest Ref Range: 39.0 - 51.0 % 45.3 Platelet Count Latest Ref Range: 150 - 400 k/uL 304 MCV Latest Ref Range: 80.0 - 100.0 fL 87.6 MCH Latest Ref Range: 26.0 - 34.0 pG 27.1 MCHC Latest Ref Range: 30.5 - 36.0 g/dL 30.9 MPV Latest Ref Range: 9.0 - 12.7 fL 9.9 RDW-CV Latest Ref Range: 11.5 - 15.0 % 13.8 Neut% Latest Units: % 65.6 Abs Neut (ANC) Latest Ref Range: 1.45 - 7.50 k/uL 6.99 Lymph% Latest Units: % 23.3 Abs Lymph Latest Ref Range: 1.00 - 4.00 k/uL 2.49 Highland% Latest Units: % 6.0 Abs Highland Latest Ref Range: <0.87 k/uL 0.64 Eosin% Latest Units: % 4.4 Abs Eosin Latest Ref Range: <0.46 k/uL 0.47 (H) Baso% Latest Units: % 0.7 Abs Baso Latest Ref Range: <0.11 k/uL 0.08 Nucleated Reds Latest Ref Range: 0 /100 WBC 0.0 Absolute nRBC Latest Ref Range: <0.01 k/uL <0.01 Diff Type Unknown Auto Diff Albumin/Creat Ratio Latest Ref Range: 0 - 30 mg/g 14 Creatinine, Ur Random (UCRR) Latest Ref Range: 20 - 300 mg/dL 127.2 Albumin, Urine Random Latest Ref Range: 0.0 - 23.0 mg/L 18.3 ASSESSMENT: obesity hypertension--at goal hyperlipidemia--at goal diabetes mellitus II with CKD III--worse control s/p aortic valve repair and hx of PE--on coumadin. non-compliant with INR checking PLAN: Better diabetic, healthy weight losing diet and regular exercise eat less sugar, bread, potato, pasta, rice, corn, corn syrup, saturated fats increase trulicity 1.5 mg weekly and increase pioglitisone 30mg daily same other medications INR today--standing order follow up with seismometer operator and respiratory supervisor return to office 3 mos with labs DOMINGO Lucio MD, III MD PROGRESS Observed: 08/16/2017 Status: COMPLETED Source: [place] 4:30 PM [facility] REPOSITORY HNO ID: [id number] Author: Dmitry Roberto III Service: (none) Author Type: Physician Type: Progress Notes Filed: 08/16/2017 4:30 PM Note Text: , The lab results are not good. We will discuss in more detail at the upcoming appointment. Dmitry Roberto III, MD, [facility] PROGRESS Observed: 08/15/2017 Status: COMPLETED Source: [place] 2:54 PM [facility] REPOSITORY HNO ID: [id number] Author: Arminda Obregon Service: (none) Author Type: Physician Type: Progress Notes Filed: 08/15/2017 2:56 PM Note Text: Subjective: Patient presents to clinic c/o painful toenails. They state that the nails are especially painful with shoe gear and pressure. Patient states that nails 1-5 b/l are painful. Patient admits to being diabetic and states that their blood sugar was 210 mg/dL this AM. No other pedal complaints at this time. Patient states no change in medications or medical history since last visit. Objective: Patient presents to clinic ambulating in diabetic shoes Vasc: DP and PT pulses are faint bilateral. CFT is less than 5 seconds bilateral. Skin temperature is warm to cool proximal to distal bilateral. There is mild edema or varicosities noted. Neuro: Protective sensation is absent to the foot and toes when tested with the 5.07 SWM bilateral. Vibratory sensation is absent at the hallux IPJ bilateral. The hallux is downgoing bilateral. Derm: Nails 1-5 b/l are painful, discolored-yellow, thick, crumbly, dystrophic and with subungal debris. Skin is dry and scaly b/l. hair growth is decreased bilateral. There are no hyperkeratosis, ulcerations, scars, verruca or other lesions noted. There is evidence of dry blood beneath right hallux but no ulceration is present Ortho: Muscle strength is 5/5 for all pedal groups tested. Ankle joint DF is full with the knee extended with no pain or crepitus noted. 1st MPJ ROM is full bilateral. Assessment: (B35.1) Onychomycosis (primary encounter diagnosis) (E11.42) Diabetic polyneuropathy associated with type 2 diabetes mellitus (HCC) (M79.674) Pain in toe of right foot (M79.675) Pain in toe of left foot xerosis Plan: Patient was seen and evaluated. Nails 1-5 bilateral were debrided in length and thickness. Patient has dry blood on right hallux but on inspection of right foot, there are no sores. He is to avoid barefoot walking Recommend he apply lotion to his feet daily. Patient was instructed on the continued importance of diabetic foot care along with proper diet and keeping their blood sugar under control to prevent complications. Patient is to RTC in 3-4 months. Arminda Obregon DPM PROGRESS Observed: 08/15/2017 Status: COMPLETED Source: [place] 2:26 PM [facility] REPOSITORY HNO ID: [id number] Author: Blaire De La Torre RN Service: (none) Author Type: (none) Type: Progress Notes Filed: 08/15/2017 2:56 PM Note Text: Pt reports that his blood sugar was 210 this morning. CBC AND DIFFERENTIAL Collected: 08/15/2017 Status: F Source: [place] 9:21 AM [facility] REPOSITORY TYPE CODE TESTS RESULT OUT OF REFERENCE UNITS RANGE LAB WBC 3.70-11.00 k/uL WBC 10.67 LAB RBC 4.20-6.00 m/uL RBC 5.17 LAB HGB 13.0-17.0 g/dL Hemoglobin 14.0 LAB HCT 39.0-51.0 % Hematocrit 45.3 LAB MCV 80.0-100.0 fL MCV 87.6 LAB MCH 26.0-34.0 pG MCH 27.1 LAB MCHC 30.5-36.0 g/dL MCHC 30.9 LAB RDWCV 11.5-15.0 % RDW-CV 13.8 LAB PLTCT 150-400 k/uL Platelet Count 304 LAB MPV 9.0-12.7 fL MPV 9.9 LAB ANEUT % Neut% 65.6 LAB AANEUT 1.45-7.50 k/uL Abs Neut 6.99 LAB ALYMP % Lymph% 23.3 LAB AALYMP 1.00-4.00 k/uL Abs Lymph 2.49 LAB AMONO % Highland% 6.0 LAB AAMONO <0.87 k/uL Abs Highland 0.64 LAB AEOS % Eosin% 4.4 LAB AAEOS <0.46 k/uL Abs High Eosin 0.47 LAB ABASO % Baso% 0.7 LAB AABASO <0.11 k/uL Abs Baso 0.08 LAB AUNRBC 0 /100 WBC NRBCs 0.0 LAB ABNRBC <0.01 k/uL Absolute nRBC <0.01 LAB DTYP DTYPE Auto Diff Performed By: #### CBCDIF, HBA1C, BMP, LIPB, B12 #### [facility] [employer] [address] [place] [id number] HEMOGLOBIN A1C Collected: 08/15/2017 Status: F Source: [place] 9:21 AM [facility] REPOSITORY TYPE CODE TESTS RESULT OUT OF REFERENCE UNITS RANGE LAB HGBA1C 4.3-5.6 % High Hemoglobin A1c 8.9 LAB HBA0 mg/dL Est. Average Glucose 209 Result Comment: eAG: (Estimated average glucose) is a calculated value from HgbA1c and is sales representative printing of the average blood glucose level in the last 2-3 month period. Performed By: #### CBCDIF, HBA1C, BMP, LIPB, B12 #### [facility] [employer] [address] [place] [id number] BASIC METABOLIC PANL Collected: 08/15/2017 Status: F Source: [place] 9:21 AM [facility] REPOSITORY TYPE CODE TESTS RESULT OUT OF REFERENCE UNITS RANGE LAB GLU 74-99 mg/dL High Glucose 245 Result Comment: The [place] Diabetes Association (ADA) provides guidance for cutoff values for fasting glucose and random glucose. The ADA defines fasting as no caloric intake for at least 8 hours. Fas ting plasma glucose results between 100 to 125 mg/dL indicate increased risk for diabetes (prediabetes). Fasting plasma glucose results greater than or equal to 126 mg/dL meet the criteria for diagnosis of diabetes. In the absence of unequivocal hyperglycemia, results should be confirmed by repeat testing. In a patient with classic symptoms of hyperglycemia or hyperglycemic crisis, random plasma glucose results greater than or equal to 200 mg/dL meet the criteria for diagnosis of diabetes. Reference: Standards of Medical Care in Diabetes 2016, [place] [employer] Association. Diabetes Care. 2016.39(Suppl 1). LAB BUN 9-24 mg/dL BUN High 25 LAB CRET 0.73-1.22 mg/dL Creatinine High 1.46 LAB NA 136-144 mmol/L Low Sodium 135 LAB K 3.7-5.1 mmol/L Potassium 4.0 LAB CL 97-105 mmol/L Low Chloride 93 LAB CO2 22-30 mmol/L CO2 29 LAB AGAP 9-18 mmol/L Anion Gap 13 LAB CA 8.5-10.2 mg/dL Calcium, Total 9.7 LAB GFRAA eGFR- Amer. 58 LAB GFRNAA . eGFR-All Other Races 48 Result Comment: eGFR (Estimated GFR) Units of measure: mL/min/1.73 meters squared eGFR is derived from the reexpressed MDRD Study equation using the following parameters: serum creatinine, age, gender and race. The creatinine assay has been calibrated to be traceable to IDMS. An eGFR <60 mL/min/1.73m2 for >3 months is consistent with chronic kidney disease. Refer to KDOQI guidelines for clinical interpretation. In patients with unstable renal function, e.g. those with acute kidney injury, the eGFR may not accurately reflect actual GFR. Performed By: #### CBCDIF, HBA1C, BMP, LIPB, B12 #### [facility] [address] [place], [place] [address] LIPID PANEL, BASIC Collected: 08/15/2017 Status: F Source: [place] 9:21 AM [facility] REPOSITORY TYPE CODE TESTS RESULT OUT OF REFERENCE UNITS RANGE LAB CHOL <200 mg/dL Cholesterol 139 Result Comment: <200 mg/dL, Desirable 200-239 mg/dL, Borderline high >239 mg/dL, High LAB TRIGLY <150 mg/dL Triglyceride High 331 Result Comment: <150 mg/dL, Normal 150-199 mg/dL, Borderline high 200-499 mg/dL, High >499 mg/dL, Very high LAB HDL >39 mg/dL HDL-Cholesterol Low 31 Result Comment: 40-59 mg/dL, Acceptable >59 mg/dL, High: Negative risk factor for coronary heart disease <40 mg/dL, Low: Positive risk factor for coronary heart disease LAB LDL <100 mg/dL LDL-Cholesterol 42 Result Comment: <100 mg/dL, Optimal 100-129 mg/dL, Near optimal/above optimal 130-159 mg/dL, Borderline high 160-189 mg/dL, High >189 mg/dL, Very high Secondary prevention optimal LDL Cholesterol levels are recommended to be < 70 mg/dL LAB NONHDL <130 mg/dL Non HDL Cholesterol 108 Result Comment: <130 mg/dL, Optimal 130-159 mg/dL, Near optimal/above optimal 160-189 mg/dL, Borderline high 190-219 mg/dL, High >219 mg/dL, Very high Secondary prevention optimal non HDL Cholesterol levels are recommended to be < 100 mg/dL LAB FT hrs Fasting Time 11 LAB VLDL <30 mg/dL High VLDL Cholesterol 66 LAB TCHDL <5.10 TC:HDL Ratio 4.48 LAB LDLHDL <2.54 LDL:HDL Ratio 1.35 Result Comment: Reference: 1. National Cholesterol Education Program ATP III Guideline At-A-Glance Quick Desk Reference: National Heart, Lung, and Blood [employer]. National Institutes of Health. 2001: NIH Publication No. 01-3305. 2. An International Atherosclerosis Society position paper: global recommendations for the management of dyslipidemia: executive summary, Atherosclerosis. 2014: 232(2):410-413. Performed By: #### CBCDIF, HBA1C, BMP, LIPB, B12 #### [facility] [employer] [address] [place], [place] [address] VITAMIN B12 Collected: 08/15/2017 Status: F Source: [place] 9:21 AM [facility] REPOSITORY TYPE CODE TESTS RESULT OUT OF REFERENCE UNITS RANGE LAB B12 232-1245 pg/mL Vitamin B12 312 Performed By: #### CBCDIF, HBA1C, BMP, LIPB, B12 #### [facility] [employer] [address] [place], [place] [address] ALBUMIN/CREAT RATIO Collected: 08/15/2017 Status: F Source: [place] 9:18 AM [facility] REPOSITORY TYPE CODE TESTS RESULT OUT OF REFERENCE UNITS RANGE LAB UCRR 20-300 mg/dL Creatinine,Ur 127.2 ine,Ran LAB UALBR 0.0-23.0 mg/L Albumin Urine 18.3 Random LAB UALBCR 0-30 mg/g Albumin/Creat 14 Ratio Result Comment: 30 to 300 mg/g indicates an increased risk for diabetic nephropathy. Greater than 300 mg/g is consistent with clinical nephropathy. (Am J Kidney Disease 1995, 25:107) Performed By: #### UACR #### [facility] [address] [place] [id number] ALLERGIES ALLERGIES DATE TYPE / CODE NAME / CODE REACTION SEVERITY SOURCE 05/22/2018 Drug propofol/[id number] Other Unknown [facility] All[facility]/416 528(RXNORM) [facility] 472041(SNOM Repository ED CT) 03/24/2018 Drug No Known Unknown [facility] Allergy/416 Allergies/[id number] Hospital 209171(SNOM 0388(RXNORM) Repository ED CT) Drug NO KNOWN [facility] Class/87245 ALLERGIES Main [place] 1003(SNOMED Repository CT) ENCOUNTERS ENCOUNTERS ADMIT/DISCHARGE ACCOUNT ADMITTING ENCOUNTER LOCATION SOURCE NUMBER CLASS 07/24/2018/07/24/19 [id number] Ambulatory [address] Repository 07/24/2018/07/25/[id number] Repository 07/15/2018 [id number] [facility] Hospital ing:[employer] Repository 07/07/2018 [id number] Ambulatory General acute hospital Hospital ing:[facility] Repository 07/02/2018 [id number] Ambulatory General acute hospital Hospital ing:[facility] Repository 06/27/2018/06/27/20 [id number] Ambulatory [address] Repository 06/24/2018/06/24/20 [id number] Ambulatory [address] Repository 06/24/2018/06/24/20 [id number] Ambulatory [address] Repository 06/23/2018/06/23/[id number] ing:[facility] Repository 06/17/2018/06/18/20 [id number] Ambulatory [address] Repository 06/10/2018/06/11/20 [id number] Ambulatory [address] Repository 06/09/2018/06/13/20 [id number] Ambulatory [address] ing:[facility] Repository 06/04/2018/06/06/20 [id number] Ambulatory [address] Repository 06/03/2018/06/06/20 [id number] Ambulatory [address] Repository 05/30/2018/05/30/20 [id number] Ambulatory [address] Repository 05/30/2018/06/02/20 [id number] Ambulatory [address] Repository 05/25/2018 [id number] Ambulatory [facility]Building:[facility] Repository 05/22/2018/05/29/20 [id number] [facility] Inpatient [address] ing:EI6Omsj: Repository [id number]: 1 05/22/2018 [id number] [facility] Ambulatory BMSBuilding:[facility] [place] [facility] Repository 05/22/2018 [id number] Landen Blanco Ambulatory BMSBuilding:B [place] MS.[facility] Repository 05/22/2018 [id number] Landen Blanco Ambulatory BMSBuilding:B [place] MS.[facility] Repository 05/22/2018 [id number] Landen Blanco Ambulatory BMSBuilding:B [place] MS.[facility] Repository 05/22/2018 [id number] Landen Blanco Ambulatory BMSBuilding:B [place] MS.[facility] Repository 05/22/2018 [id number] Landen Blanco Ambulatory BMSBuilding:B [place] MS.[facility] Repository 05/22/2018 [id number] Landen Blanco Ambulatory BMSBuilding:B [place] MS.[facility] Repository 05/22/2018 [id number] Landen Blanco Ambulatory BMSBuilding:B [place] MS.[facility] Repository 05/22/2018/11/15 [id number] Ambulatory BMSBuilding:B [place] 18 MS.CF.[facility] Repository 05/22/2018/05/23/20 [id number] Ambulatory [address] Repository 05/13/2018/05/14/20 [id number] Ambulatory [address] Repository 05/13/2018/05/13/20 [id number] Ambulatory [address] Repository 05/13/2018/05/13/20 [id number] Ambulatory [address] Repository 05/13/2018/05/14/20 [id number] Ambulatory [address] Repository 05/12/2018/05/13/20 [id number] Ambulatory [address] Repository 05/07/2018 [id number] Ambulatory [facility] HospitalBuild Hospital ing:OLS.ACH Repository 05/06/2018/05/07/20 [id number] Ambulatory [address] Repository 05/05/2018 [id number] Ambulatory [facility] HospitalBuild Hospital ing:OLS.ACH Repository 04/30/2018 [id number] Ambulatory [facility] HospitalBuild Hospital ing:OLS.ACH Repository 04/29/2018/04/30/20 [id number] Ambulatory [address] Repository 04/23/2018 [id number] Ambulatory [facility] HospitalBuild Hospital ing:OLS.ACH Repository 04/22/2018/04/23/20 [id number] Ambulatory [address] Repository 04/16/2018 [id number] Ambulatory [facility] HospitalBuild Hospital ing:OLS.ACH Repository 04/15/2018/04/15/20 [id number] Ambulatory [address] Repository 04/14/2018 [id number] Ambulatory [facility] HospitalBuild Hospital ing:OLS.ACH Repository 04/10/2018/04/10/20 [id number] Ambulatory [address] Repository 04/10/2018/04/10/20 [id number] Ambulatory [address] Repository 04/09/2018 [id number] Ambulatory [facility] HospitalBuild Hospital ing:OLS.ACH Repository 04/03/2018/04/03/20 [id number] Ambulatory [address] Repository 04/02/2018 [id number] Ambulatory General acute hospital Hospital ing:OLS.ACH Repository 03/28/2018 [id number] [facility] 03/24/2018/04/01/20 [id number] Jesus Burnham Inpatient [address] Hospital ing:IW6Kiha: Repository RX842Tcj: 1 03/24/2018 [id number] Jesus Burnham Ambulatory BMSBuilding:Teddy Caputo MS.[facility] Repository 03/24/2018 [id number] Jesus Burnham Ambulatory BMSBuilding:Teddy Caputo MS.[facility] Repository 03/24/2018 [id number] Jesus Burnham Ambulatory BMSBuilding:Teddy Caputo MS.[facility] Repository 03/24/2018 [id number] Jesus Burnham Ambulatory BMSBuilding:Teddy Caputo MS.[facility] Repository 03/24/2018 [id number] Jesus Burnham Ambulatory BMSBuilding:Teddy Caputo MS.[facility] Repository 03/24/2018 [id number] Jesus Burnham Ambulatory BMSBuilding:Teddy Caputo MS.[facility] Repository 03/24/2018 [id number] Jesus Burnham Ambulatory BMSBuilding:Teddy Caputo MS.[facility] Repository 03/24/2018 [id number] Jesus Burnham Ambulatory BMSBuilding:Teddy Caputo MS.[facility] Repository 03/24/2018 [id number] Jesus Burnham Ambulatory BMSBuilding:Teddy Caputo MS.[facility] Repository 03/24/2018 [id number] Jesus Burnham Ambulatory BMSBuilding:Teddy Caputo MS.[facility] Repository 03/24/2018/04/01/20 [id number] Ambulatory BMSBuilding:Freddy KramerPatito[address] Repository 03/19/2018/03/19/20 [id number] Ambulatory [address] Repository 03/19/2018/03/24/20 [id number] Ambulatory [address] Repository 03/12/2018/03/14/20 [id number] Ambulatory [facility] Repository 03/06/2018/03/06/20 [id number] Ambulatory [facility] [place] Repository 03/06/2018/03/07/20 [id number] Ambulatory [facility] [place] Repository 12/26/2017/12/27/19 [id number] Ambulatory [facility] [place] Repository 12/12/2017/12/14/19 [id number] Ambulatory [facility] [place] Repository 12/02/2017/12/03/19 [id number] Ambulatory [facility] [place] Repository 11/28/2017/12/03/19 [id number] Ambulatory [facility] [place] Repository 11/26/2017/11/27/19 [id number] Ambulatory [facility] [place] Repository 11/26/2017/11/29/19 [id number] Ambulatory [facility] [place] Repository 10/30/2017/10/31/19 [id number] Ambulatory [facility] [place] Repository 10/09/2017/10/10/19 [id number] Ambulatory [facility] [place] Repository 09/11/2017/09/11/19 [id number] Ambulatory [facility] [place] Repository 08/19/2017/08/19/19 [id number] Ambulatory [facility] [place] Repository 08/19/2017/08/19/19 [id number] Ambulatory [facility] [place] Repository 08/15/2017/08/19/19 [id number] Ambulatory [facility] [place] Repository 08/15/2017/08/15/19 [id number] Ambulatory [facility] [place] Repository PAYERS PAYERS ENCOUNTER GUARANTOR PAYER SUBSCRIBER SOURCE 07/15/2018 RICHARD Bonilla Primary RICHARD Caputo [id number] Insurance:MEDICARE HORSTDOB: [facility] PART A BPolicy [id number] [place] Number: Repository 09261Hii: (009) [id number] [phone] () Date:2018-06-02 07/15/2018 Secondary RICHARD Caputo Insurance:EVERENCE HORSTDOB: [facility] INCPolicy [id number] Number: Repository [id number] Date:2629-38-09XZ[address] [place] [address]NR: 07/15/2018 Tertiary NOT GIVENUNK [place] Insurance:SELF PAY [facility] Number: Effective Repository Date:2018-07-14 07/07/2018 RICHARD Bonilla Primary RICHARD Bonilla [place] [id number] Insurance:MEDICARE HORSTDOB: [facility] [id number] Number: Repository 72272Qsz: 330 [id number] [phone] (HP) Date:2018-07-02 07/07/2018 Secondary RICHARD Bonilla [place] Insurance:EVERENCE HORSTDOB: [facility] [id number] Hospital Number: Repository [id number] Date:4505-78-64AI [facility] [address] [place] [address]TC: 07/07/2018 Tertiary NOT GIVENUNK [place] Insurance:SELF PAY [facility] Number: Effective Repository Date:2018-07-02 07/02/2018 RICHARD Bonilla Primary RICHARD Bonilla [place] [id number] Insurance:MEDICARE HORSTDOB: [facility] [id number] Number: Repository 26[address]Exa: 330 [id number] [phone] (HP) Date:2018-07-01 07/02/2018 Secondary RICHARD Bonilla [place] Insurance:EVERENCE HORSTDOB: [facility] [id number] Hospital Number: Repository [id number] Date:0218-18-51TO [address] [address]LJ: 07/02/2018 Tertiary NOT GIVENUNK [place] Insurance:SELF PAY [facility] Number: Effective Repository Date:2018-07-01 06/23/2018 RICHARD Bonilla Primary RICHARD Bonilla [place] [id number] Insurance:MEDICARE HORSTDOB: [facility] [id number] Number: Repository 35[address]Fhy: (681) [id number] [phone] (HP) Date:2018-06-02 06/23/2018 Secondary RICHARD Bonilla [place] Insurance:EVERENCE HORSTDOB: [facility] [id number] Hospital Number: Repository [id number] Date:9074-52-75[address], [place] [address]OG: 06/23/2018 Tertiary NOT GIVENUNK [place] Insurance:SELF PAY [facility] Hospital Number: Effective Repository Date:2018-06-14 06/09/2018 RICHARD Bonilla Primary RICHARD Bonilla [place] [id number] Insurance:MEDICARE HORSTDOB: [facility] PART A [facility] [id number] Number: Repository [address]Ggn: 330 [id number] [phone] () Date:2018-06-02 06/09/2018 Secondary RICHARD Bonilla [place] Insurance:EVERENCE HORSTDOB: [facility] [id number] Hospital Number: Repository [id number] Date:3703-90-90YH [address], [place] [address]WR: 06/09/2018 Tertiary NOT GIVENUNK [place] Insurance:SELF PAY [facility] Number: Effective Repository Date:2018-06-02 05/25/2018 RICHARD Bonilla Primary RICHARD [place] [id number] Insurance:MEDICARE HORSTDOB: [facility] PART A [facility] [id number], [place] Number: Repository 12643Cxu: 330 [id number] [phone] (HP) Date:2018-05-22 05/25/2018 Secondary RICHARD Bonilla [place] Insurance:EVERENCE HORSTDOB: [facility] [id number] Hospital Number: Repository [id number] Date:3619-15-18DN [address] [place] [address]HO: 05/25/2018 Tertiary NOT GIVENUNK [place] Insurance:SELF PAY [facility] Hospital Number: Effective Repository Date:2018-05-22 05/22/2018 RICHARD Bonilla Primary RICHARD Bonilla [place] [id number] Insurance:MEDICARE HORSTDOB: [facility] [id number], [place] Number: Repository 35[address]Otu: 330 [id number] [phone] (HP) Date:2018-05-22 05/22/2018 Secondary K [place] Insurance:EVERENCE HORSTDOB: [facility] [id number] Hospital Number: Repository [id number] Date:7562-10-45KO [address] [address]CM: 05/22/2018 Tertiary NOT GIVENUNK [place] Insurance:SELF PAY [facility] Number: Effective Repository Date:2018-05-22 05/22/2018 K Primary RICHARD Bonilla [place] [id number] Insurance:MEDICARE HORSTDOB: [facility] [id number], [place] Number: Repository [address]Oxy: 330 [id number] [phone] () Date:2018-05-22 05/22/2018 Secondary K [place] Insurance:EVERENCE HORSTDOB: [facility] [id number] Hospital Number: Repository [id number] Date:6986-76-42QW [address] [address]IS: 05/22/2018 Tertiary NOT GIVENUNK [place] Insurance:SELF PAY [facility] Number: Effective Repository Date:2018-05-22 05/22/2018 K Primary Irene [place] [id number] Insurance:MEDICARE HORSTDOB: [facility] [id number] Number: Repository 87[address]Dfu: 330 [id number] [phone] (HP) Date:2018-05-22 05/22/2018 Secondary K [place] Insurance:EVERENCE HORSTDOB: [facility] [id number] Hospital Number: Repository [id number] Date:7659-00-03AI [address], [place] [address]YH: 05/22/2018 Tertiary NOT GIVENUNK [place] Insurance:SELF PAY [facility] Hospital Number: Effective Repository Date:2018-05-22 05/22/2018 RICHARD Bonilla Primary RICHARD Bonilla [place] [id number] Insurance:MEDICARE HORSTDOB: [facility] [id number], [place] Number: Repository [address]Vyi: 330 [id number] [phone] (HP) Date:2018-05-22 05/22/2018 Secondary RICHARD Bonilla [place] Insurance:EVERENCE HORSTDOB: [facility] [id number] Hospital Number: Repository [id number] Date:8080-64-43TX[address] [address]ST: 05/22/2018 Tertiary NOT GIVENUNK [place] Insurance:SELF PAY [facility] Number: Effective Repository Date:2018-05-22 05/22/2018 RICHARD Bonilla Primary RICHARD Bonilla [place] [id number] Insurance:MEDICARE HORSTDOB: [facility] [id number], [place] Number: Repository 59[address]Ulb: 330 [id number] [phone] (HP) Date:2018-05-22 05/22/2018 Secondary RICHARD Bonilla [place] Insurance:EVERENCE HORSTDOB: [facility] [id number] Hospital Number: Repository [id number] Date:1152-06-34FB [facility] [address] [address]IL: 05/22/2018 Tertiary NOT GIVENUNK [place] Insurance:SELF PAY [facility] Hospital Number: Effective Repository Date:2018-05-22 05/22/2018 RICHARD Bonilla Primary RICHARD Bonilla [place] [id number] Insurance:MEDICARE HORSTDOB: [facility] [id number], [place] Number: Repository 10781Uxl: 330 [id number] [phone] (HP) Date:2018-05-22 05/22/2018 Secondary K [place] Insurance:EVERENCE HORSTDOB: [facility] [id number] Hospital Number: Repository [id number] Date:3879-27-04KQ[address] [place] [address]NS: 05/22/2018 Tertiary NOT GIVENUNK [place] Insurance:SELF PAY [facility] Number: Effective Repository Date:2018-05-22 05/22/2018 RICHARD Bonilla Primary RICHARD Bonilla [place] [id number] Insurance:MEDICARE HORSTDOB: [facility] [id number], [place] Number: Repository [id number]: (486) [id number] [phone] (HP) Date:2018-05-22 05/22/2018 Secondary RICHARD Bonilla [place] Insurance:EVERENCE HORSTDOB: [facility] [id number] Hospital Number: Repository [id number] Date:8731-82-96CM [address] [place] [place] [address]JY: 05/22/2018 Tertiary NOT GIVENUNK [place] Insurance:SELF PAY [facility] Number: Effective Repository Date:2018-05-22 05/22/2018 RICHARD Bonilla Primary RICHARD Bonilla [place] [id number] Insurance:MEDICARE HORSTDOB: [facility] [id number], [place] Number: Repository [address]Wmd: (056) [id number] [phone] (HP) Date:2018-05-22 05/22/2018 Secondary RICHARD Bonilla [place] Insurance:EVERENCE HORSTDOB: [facility] [id number] Hospital Number: Repository [id number] Date:2541-03-55KT [facility] [address] [place] [address]VF: 05/22/2018 Tertiary NOT GIVENUNK [place] Insurance:SELF PAY [facility] Number: Effective Repository Date:2018-05-22 05/22/2018 RICHARD Bonilla Primary RICHARD Bonilla [place] [id number] Insurance:MEDICARE HORSTDOB: [facility] [id number], [place] Number: Repository [id number]: (129) [id number] [phone] (HP) Date:2018-05-22 05/22/2018 Secondary RICHARD Bonilla [place] Insurance:EVERENCE HORSTDOB: [facility] [id number] Hospital Number: Repository [id number] Date:3824-16-40BC [address] [place] [address]CB: 05/22/2018 Tertiary NOT GIVENUNK [place] Insurance:SELF PAY [facility] Number: Effective Repository Date:2018-05-22 05/22/2018 RICHARD Bonilla Primary RICHARD Bonilla [place] [id number] Insurance:MEDICARE HORSTDOB: [facility] PART A [facility] [id number], [place] Number: Repository 364[address]Dgp: 330 [id number] [phone] (HP) Date:2018-05-22 05/22/2018 Secondary RICHARD Bonilla [place] Insurance:EVERENCE HORSTDOB: [facility] [id number] Hospital Number: Repository [id number] Date:7772-26-38LR [address] [place] [address]FP: 05/22/2018 Tertiary NOT GIVENUNK [place] Insurance:SELF PAY [facility] Number: Effective Repository Date:2018-05-22 05/07/2018 RICHARD Bonilla Primary RICHARD Bonilla [place] [id number] Insurance:EVERENCE HORSTDOB: [facility] [id number], [place] Number: Repository [address]Hcw: 330 [id number] [phone] (HP) Date:6024-57-81RU [address] [place] [address]JI: 05/07/2018 Secondary RICHARD Bonilla [place] Insurance:MEDICARE HORSTDOB: [facility] PART A [facility] [id number] Hospital Number: Repository [id number] Date:2018-05-07 05/07/2018 Tertiary NOT GIVENUNK [place] Insurance:SELF PAY [facility] Number: Effective Repository Date:2018-05-07 05/05/2018 RICHARD Bonilla Primary NOT GIVENUNK [place] [id number] Insurance:SELF PAY [place] Number: Effective Repository 37081Exf: (330) Date:2018-05-05 [phone] () 04/30/2018 RICHARD Bonilla Primary NOT GIVENUNK [place] [id number] Insurance:SELF [place] Number: Effective Repository [phone]: (330) Date:2018-04-30 [phone] () 04/23/2018 RICHARD Bonilla Primary NOT GIVENUNK [place] [id number] Insurance:SELF [place] Number: Effective Repository 36712Jzf: (330) Date:2018-04-23 [phone] () 04/16/2018 RICHARD Bonilla Primary NOT GIVENUNK [place] [id number] Insurance:[place]LF [place] Number: Effective Repository [phone]: (330) Date:2018-04-16 [phone] () 04/14/2018 RICHARD Bonilla Primary NOT GIVENUNK [place] [id number] Insurance:[place]LF [place] Number: Effective Repository [phone]: (330) Date:2018-04-14 [phone] () 04/09/2018 RICHARD Bonilla Primary NOT GIVENUNK [place] [id number] Insurance:SELF [place] Number: Effective Repository 31131Tjm: (330) Date:2018-04-09 [phone] () 04/02/2018 RICHARD Bonilla Primary NOT GIVENUNK [place] [id number] Insurance:[place]LF [place] Number: Effective Repository 28071Ppz: (330) Date:2018-04-02 [phone] () 03/28/2018 RIHCARD Bonilla Primary RICHARD Bonilla [place] [id number] Insurance:MEDICARE HORSTDOB: [facility] PART A BPolicy [id number], [place] Number: Repository [id number]: (330 [id number] [phone] (HP) Date:2018-03-24 03/28/2018 Secondary RICHARD Bonilla [place] Insurance:EVERENCE HORSTDOB: [facility] [id number] Hospital Number: Repository [id number] Date:7050-44-22IF [address], [place] [address]MZ: 03/28/2018 Tertiary NOT GIVENUNK [place] Insurance:SELF PAY [facility] Hospital Number: Effective Repository Date:2018-03-28 03/24/2018 K Primary RICHARD Bonilla [place] [id number] Insurance:MEDICARE HORSTDOB: [facility] [id number], [place] Number: Repository 41734Zaa: 330 [id number] [phone] () Date:2018-03-24 03/24/2018 Secondary K [place] Insurance:EVERENCE HORSTDOB: [facility] [id number] Hospital Number: Repository [id number] Date:4644-85-51BQ [address], [place] [address]DI: 03/24/2018 Tertiary NOT GIVENUNK [place] Insurance:SELF PAY [facility] Number: Effective Repository Date:2018-03-24 03/24/2018 K Primary RICHARD Bonilla [place] [id number] Insurance:MEDICARE HORSTDOB: [facility] [id number], [place] Number: Repository [id number]: 330 [id number] [phone] (HP) Date:2018-03-24 03/24/2018 Secondary Irene [place] Insurance:EVERENCE HORSTDOB: [facility] [id number] Hospital Number: Repository [id number] Date:3441-11-30YF [address], [place] [address]ZP: 03/24/2018 Tertiary NOT GIVENUNK [place] Insurance:SELF PAY [facility] Number: Effective Repository Date:2018-03-24 03/24/2018 K Primary K [place] [id number] Insurance:MEDICARE HORSTDOB: [facility] [id number], [place] Number: Repository [id number]: 330 [id number] [phone] (HP) Date:2018-03-24 03/24/2018 Secondary K [place] Insurance:EVERENCE HORSTDOB: [facility] [id number] Hospital Number: Repository [id number] Date:0827-14-42TY [address] [place] [address]DT: 03/24/2018 Tertiary NOT GIVENUNK [place] Insurance:SELF PAY [facility] Number: Effective Repository Date:2018-03-24 03/24/2018 K Primary RICHARD Bonilla [place] [id number] Insurance:MEDICARE HORSTDOB: [facility] [id number], [place] Number: Repository 79377Fov: 330 [id number] [phone] (HP) Date:2018-03-24 03/24/2018 Secondary Irene [place] Insurance:EVERENCE HORSTDOB: [facility] [id number] Hospital Number: Repository [id number] Date:6792-87-72LR [address] [address]KG: 03/24/2018 Tertiary NOT GIVENUNK [place] Insurance:SELF PAY [facility] Number: Effective Repository Date:2018-03-24 03/24/2018 K Primary RICHARD Bonilla [place] [id number] Insurance:MEDICARE HORSTDOB: [facility] [id number], [place] Number: Repository 536[address]Hpu: 330 [id number] [phone] (HP) Date:2018-03-24 03/24/2018 Secondary K [place] Insurance:EVERENCE HORSTDOB: [facility] [id number] Hospital Number: Repository [id number] Date:4990-67-37XG [address], [place] [address]KZ: 03/24/2018 Tertiary NOT GIVENUNK [place] Insurance:SELF PAY [facility] Number: Effective Repository Date:2018-03-24 03/24/2018 RICHARD Bonilla Primary RICHARD Bonilla [place] [id number] Insurance:MEDICARE HORSTDOB: [facility] [id number], [place] Number: Repository [id number]: (591) [id number] [phone] () Date:2018-03-24 03/24/2018 Secondary RICHARD Bonilla [place] Insurance:EVERENCE HORSTDOB: [facility] [id number] Hospital Number: Repository [id number] Date:9742-01-59MC [address] [place] [place] [address]IW: 03/24/2018 Tertiary NOT GIVENUNK [place] Insurance:SELF PAY [facility] Number: Effective Repository Date:2018-03-24 03/24/2018 RICHARD Bonilla Primary RICHARD Bonilla [place] [id number] Insurance:MEDICARE HORSTDOB: [facility] [id number], [place] Number: Repository 453[address]Ifg: ([phone]) [id number] [phone] () Date:2018-03-24 03/24/2018 Secondary RICHARD Bonilla [place] Insurance:EVERENCE HORSTDOB: [facility] [id number] Hospital Number: Repository [id number] Date:7174-53-99EC [address] [place] [place] [address]UV: 03/24/2018 Tertiary NOT GIVENUNK [place] Insurance:SELF PAY [facility] Number: Effective Repository Date:2018-03-24 03/24/2018 RICHARD Bonilla Primary RICHARD Bonilla [place] [id number] Insurance:MEDICARE HORSTDOB: [facility] [id number], [place] Number: Repository 43740Kfz: (995) [id number] [phone] (HP) Date:2018-03-24 03/24/2018 Secondary K [place] Insurance:EVERENCE HORSTDOB: [facility] [id number] Hospital Number: Repository [id number] Date:3838-30-67VV[address] [place] [address]RJ: 03/24/2018 Tertiary NOT GIVENUNK [place] Insurance:SELF PAY [facility] Hospital Number: Effective Repository Date:2018-03-24 03/24/2018 RICHARD Bonilla Primary RICHARD Bonilla [place] [id number] Insurance:MEDICARE HORSTDOB: [facility] [id number], [place] Number: Repository [id number]: (991) [id number] [phone] () Date:2018-03-24 03/24/2018 Secondary RICHARD Bonilla [place] Insurance:EVERENCE HORSTDOB: [facility] [id number] Hospital Number: Repository [id number] Date:0142-20-67JQ [address], [place] [address]BH: 03/24/2018 Tertiary NOT GIVENUNK [place] Insurance:SELF PAY [facility] Hospital Number: Effective Repository Date:2018-03-24 03/24/2018 RICHARD Bonilla Primary RICHARD Bonilla [place] [id number] Insurance:MEDICARE HORSTDOB: [facility] [id number] Number: Repository [id number]: [phone] [id number] [phone] () Date:2018-03-24 03/24/2018 Secondary RICHARD Bonilla [place] Insurance:EVERENCE [facility]STDOB[facility] [id number] Hospital Number: Repository [id number] Date:[id number] [place] [address]SY: 03/24/2018 Tertiary NOT GIVENUNK [place] Insurance:SELF PAY [facility] Number: Effective Repository Date:2018-03-24 03/24/2018 RICHARD Bonilla Primary RICHARD Bonilla [place] [id number] Insurance:MEDICARE HORSTDOB: [facility] [id number] Number: Repository [id number]: [phone] [id number] [phone] (HP) Date:2018-03-24 03/24/2018 Secondary RICHARD Bonilla [place] Insurance:EVERENCE HORSTDOB: [facility] [id number] Hospital Number: Repository [id number] Date:3171-31-10[address] [address]RB: 03/24/2018 Tertiary NOT GIVENUNK [place] Insurance:SELF PAY [facility] Number: Effective Repository Date:2018-03-24 03/24/2018 RICHARD Bonilla Primary RICHARD Bonilla [place] [id number] Insurance:MEDICARE HORSTDOB: [facility] [id number] Number: Repository [id number]: [phone] [id number] [phone] (HP) Date:2018-03-24 03/24/2018 Secondary RICHARD Bonilla [place] Insurance:EVERENCE HORSTDOB: [facility] [id number] Hospital Number: Repository [id number] Date:2170-30-06CS [address] [address]ZQ: 03/24/2018 Tertiary NOT GIVENUNK [place] Insurance:SELF PAY [facility] Number: Effective Repository Date:2018-03-24
== END 2018-06-23 16:31 | disposition home or self-care (01) ==
LOC: HHLAB 15:31
PROVIDERS: Family Provider Family Medicine; PCP Family Medicine; Referring Provider Internal Medicine Infectious Disease; Visit Provider Internal Medicine Infectious Disease
DX: T87.81 Dehiscence of amputation stump (principal); T87.43 Infection of amputation stump, right lower extremity; E11.69 Type 2 diabetes mellitus with other specified complication; M86.671 Other chronic osteomyelitis, right ankle and foot; B95.61 Methicillin susceptible Staphylococcus aureus infection as the cause of diseases classified elsewhere; I48.0 Paroxysmal atrial fibrillation; I10 Essential (primary) hypertension; D64.9 Anemia, unspecified; E11.40 Type 2 diabetes mellitus with diabetic neuropathy, unspecified; I45.10 Unspecified right bundle-branch block
CPT/HCPCS: 80048; 85027; 85610; 85652

== ENCOUNTER → 2018-07-02 13:46 | Outpatient (CLI) | payer MEDICARE, OTHER, SELFPAY ==
[2018-05-28 10:06] VITALS: BMI 35.1
[2018-07-02 14:23] LABS: Erythrocyte Sedimentation Rate 20 mm/hr (0-20)
[2018-07-02 14:25] LABS: Hematocrit 36.2 % (40-54); Hemoglobin 11.5 g/dl (13.0-16.5); Mean Corp Hgb Conc 31.8 g/gl (32-36); Mean Corpuscular Hgb 26.6 pg (27.0-32.0); Mean Corpuscular Volume 83.6 fL (80-94); Mean Platelet Vol. 8.7 fl (6.2-12.0); Platelet Count 235 K/mm3 (150-450); RBC Distribution Width CV 14.6 % (11.6-14.6); RBC Distribution Width SD 44.9 fl (35.1-43.9); Red Blood Count 4.33 M/mm3 (4.6-6.2); Scan Indicated on CBC? Y/N NO; White Blood Count 8.9 K/mm3 (4.4-11.0)
[2018-07-02 14:40] LABS: Anion Gap 8 (5-15); BUN 19 mg/dL (7-18); BUN/Creat Ratio 17.1 RATIO (10-20); Calcium,Total 8.7 mg/dL (8.5-10.1); Chloride 103 mmol/L (98-107); Creatinine, Serum 1.11 mg/dL (0.70-1.30); EST Glomerular Filtration Rate 70 mL/min (>60); Est Glom Filt Rate - Afr Amer 84 mL/min (>60); Glucose 216 mg/dL (74-106); Sodium Level 139 mmol/L (136-145)
--- OUTSIDE RECORDS SUMMARY | 2018-10-03 20:36 | XMS RPT_ITS ---
:1945 Author Organization OHIP Support Name Relationship Address Phone LORENA ROY Unavailable [id number] [place] [address] RD + [place] [address] R Unavailable Unavailable Unavailable KIRILL LORENA Unavailable [address] [place] [address] RD + [place] [address] R Unavailable Unavailable Unavailable KIRILL LORENA Unavailable [address] [place] [address] RD + [place] [address] R Unavailable Unavailable Unavailable KIRILL, LORENA Unavailable [address] [place] [address] RD + [place] [address] R Unavailable Unavailable Unavailable KIRILL, LORENA Unavailable [id number] [place] [address] RD + [place] [address] R Unavailable Unavailable Unavailable KIRILL, LORENA Unavailable [id number] [place] [address] RD + [place] [address] R Unavailable Unavailable Unavailable KIRILL, LORENA Unavailable [id number] [place] [address] RD + [place] [address] R Unavailable Unavailable Unavailable KIRILL, LORENA Unavailable [id number] [place] [address] RD + [place] [address] R Unavailable Unavailable Unavailable KIRILL, LORENA Unavailable [id number] [place] [address] RD + [place] [address] R Unavailable Unavailable Unavailable KIRILL LORENA Unavailable [id number] [place] [address] RD + [place] [address] R Unavailable Unavailable Unavailable KIRILL, LORENA Unavailable [address] [place] [address] RD + [place] [address] R Unavailable Unavailable Unavailable KIRILL, LORENA Unavailable [id number] [place] [address] RD + [place] [address] R Unavailable Unavailable Unavailable KIRILL, LORENA Unavailable [address] [place] [address] RD + [place] [address] R Unavailable Unavailable Unavailable KIRILL, LORENA Unavailable [id number] [place] [address] RD + [place] [address] R Unavailable Unavailable Unavailable KIRILL, LORENA Unavailable [phone] [place] [address] RD + [place] [address] R Unavailable Unavailable Unavailable KIRILL, LORENA Unavailable [id number] [place] [address] RD + [place] [address] R Unavailable Unavailable Unavailable KIRILL, LORENA Unavailable [address] [place] [address] RD + [place] [address] R Unavailable Unavailable Unavailable Kirill, Lorena Unavailable [address] [place] [address] RD + [place] [address] R Unavailable Unavailable Unavailable Kirill, Lorena Unavailable [address] [place] [address] RD + [place] [address] R Unavailable Unavailable Unavailable Kirill, Lorena Unavailable [address] [place] [address] RD + [place] [address] R Unavailable Unavailable Unavailable Kirill, Lorena Unavailable [address] [place] [address] RD + [place] [address] R Unavailable Unavailable Unavailable Kirill, Lorena Unavailable [address] [place] [address] RD + [place] [address] R Unavailable Unavailable Unavailable Kirill, Lorena Unavailable [address] [place] [address] RD + [place] [address] R Unavailable Unavailable Unavailable Kirill, Lorena Unavailable [address] [place] [address] RD + [place] [address] R Unavailable Unavailable Unavailable Kirill, Lorena Unavailable [address] [place] [address] RD + [place] [address] R Unavailable Unavailable Unavailable KIRILL, LORENA Unavailable [address] [place] [address] RD + [place] [address] R Unavailable Unavailable Unavailable Kirill, Lorena Unavailable [address] [place] [address] RD + [place] [address] R Unavailable Unavailable Unavailable Kirill, Lorena Unavailable [address] [place] [address] RD + [place] [address] R Unavailable Unavailable Unavailable Kirill, Lorena Unavailable [address] [place] [address] RD + [place] [address] R Unavailable Unavailable Unavailable Kirill Lorena Unavailable [address] [place] [address] RD + [place] [address] R Unavailable Unavailable Unavailable Kirill Lorena Unavailable [address] [place] [address] RD + [place] [address] R Unavailable Unavailable Unavailable Kirill Lorena Unavailable [address] [place] [address] RD + [place] [address] R Unavailable Unavailable Unavailable Kirill Lorena Unavailable [address] [place] [address] RD + [place] [address] R Unavailable Unavailable Unavailable Kirill Lorena Unavailable [address] [place] [address] RD + [place] [address] R Unavailable Unavailable Unavailable Kirill Lorena Unavailable [address] [place] [address] RD + [place] [address] R Unavailable Unavailable Unavailable Kirill Lorena Unavailable [address] [place] [address] RD + [place] [address] R Unavailable Unavailable Unavailable Kirill Lorena Unavailable [address] [place] [address] RD + [place] [address] R Unavailable Unavailable Unavailable Care Team Providers Name Role Phone TESTRAMARIANNE, ARMINDA Referring Unavailable TESTRAKE, ARMINDA Attending Unavailable [...] Unavailable CEBUL III, DMITRY A Attending Unavailable FRANCISCO LIRA (FREDY) Referring Unavailable TESTRAKE, ARMINDA Attending Unavailable TESTRAKE, [...] III, DMITRY A Attending Unavailable TESTRAKE, ARMINDA Referring Unavailable TESTRAKE, ARMINDA Attending Unavailable TESTRAKE, ARMINDA Referring Unavailable TESTRAKE, ARMINDA Referring Unavailable CEBUL III, DMITRY A Referring Unavailable TESTRAKE, ARMINDA Attending Unavailable TESTRAKE, ARMINDA Referring Unavailable TESTRAKE, ARMINDA Attending Unavailable TESTRAKE, ARMINDA Referring Unavailable TESTRAKE, ARMINDA Attending Unavailable TESTRAKE, ARMINDA Referring Unavailable TESTRAKE, ARMINDA Attending Unavailable TESTRAKE, ARMINDA Referring Unavailable Heladio, Smith Attending Unavailable Heladio, Smith Referring Unavailable Cebul III, Dmitry Primary Care Unavailable Heladio, Smith Attending Unavailable Heladio, Smith Referring Unavailable Cebul III, Dmitry Primary Care Unavailable Cebul III, Dmitry Primary Care Unavailable Burnham, Jesus Admitting Unavailable Burnham, Jesus Referring Unavailable Testrake, Arminda Consulting Unavailable Enzo, Gabriel Attending Unavailable Heladio, Smith Consulting Unavailable Kee Mejia Consulting Unavailable Chapin Hernández Consulting Unavailable Burnham, Jesus Admitting Unavailable Burnham, Jesus Attending Unavailable Burnham, Jesus Referring Unavailable Cebul III, Dmitry Primary Care Unavailable Burnham, Jesus Consulting Unavailable Burnham, Jesus Admitting Unavailable Hugo Cervantes Attending Unavailable Burnham, Jesus Referring Unavailable Cebul III, Dmitry Primary Care Unavailable Testrake, Arminda Consulting Hugo Hall Consulting Unavailable Smith Ndiaye Attending Unavailable Smith Ndiaye Referring Unavailable Cebul III, Shelly Primary Care Unavailable Burnham, Jesus Admitting Unavailable Burnham, Jesus Referring Unavailable Cebul III, Shelly Primary Care Unavailable Testrake, Arminda Consulting Unavailable Semenjack, Chelsea Attending Unavailable Chapin Hernández Consulting Unavailable Smith Ndiaye Consulting Unavailable Oleghe, Ifijen Consulting Unavailable Burnham, Jesus Admitting Unavailable Burnham, Jesus Referring Unavailable Cebul III, Shelly Primary Care Unavailable Testrake, Arminda Consulting Unavailable Sementi, Chelsea Attending Unavailable Chapin Hernández Consulting Unavailable Smith Ndiaye Consulting Unavailable Kee Mejia Consulting Unavailable Oleghe, Ifijen Consulting Unavailable Burnham, Jesus Admitting Unavailable Burnham, Jesus Referring Unavailable Cebul III, Shelly Primary Care Unavailable Testrake, Arminda Consulting Unavailable Semenjack, Chelsea Attending Unavailable Chapin Hernández Consulting Unavailable Smith Ndiaye Consulting Unavailable Kee Mejia Consulting Unavailable Oleghe, Ifijen Consulting Unavailable Burnham, Jesus Admitting Unavailable Burnham, Jesus Referring Unavailable Cebul III, Shelly Primary Care Unavailable Testrake, Arminda Consulting Unavailable Sementi, Chelsea Attending Unavailable Chapin Hernández Consulting Unavailable Smith Ndiaye Consulting Unavailable Kee Mejia Consulting Unavailable Oleghe, Ifijen Consulting Unavailable Burnham, Jesus Admitting Unavailable Burnham, Jesus Referring Unavailable Cebul III, Shelly Primary Care Unavailable Testrake, Arminda Consulting Unavailable Semenjack, Chelsea Attending Unavailable Chapin Hernández Consulting Unavailable Smith Ndiaye Consulting Unavailable Kee Mejia Consulting Unavailable Oleghe, Ifijen Consulting Unavailable Burnham, Jesus Admitting Unavailable Bunrham, Jesus Referring Unavailable Cebul III, Shelly Primary Care Unavailable Testrake, Arminda Consulting Unavailable Sementi, Chelsea Attending Unavailable Chapin Hernández Consulting Unavailable Smith Ndiaye Consulting Unavailable Kee Mejia Consulting Unavailable Oleghe, Ifijen Consulting Unavailable Burnham, Jesus Admitting Unavailable TereletskyGabriel Attending Unavailable Burnham, Jesus Referring Unavailable Cebul III, Shelly Primary Care Unavailable Testrake, Arminda Consulting Unavailable [...] Unavailable Cebul III, Dmitry Primary Care Unavailable Testanny Arminda Consulting Unavailable Smith Ndiaye Consulting Unavailable An, Ghasem Consulting Unavailable Smith Ndiaye Attending Unavailable Smith Ndiaye Referring Unavailable Cebul III, Dmitry Primary Care Unavailable Smith Ndiaye Attending Unavailable Smith Ndiaye Referring Unavailable Cebul III, Dmitry Primary Care Unavailable Júnior Chandra Attending Unavailable Landen Blanco Referring Unavailable Smith Roberto Attending Unavailable An, Ghasem Referring Unavailable PROBLEMS PROBLEMS DATE TYPE CONDITION / CODE ATTENDING STATUS SOURCE 07/24/2018 Active Acquired absence of NA Active [facility] right toe(s) / [facility] Z89.421(ICD-10) [place] Repository 07/14/2018 Unknown T87.81 - Dehiscence of Heladio, Active [place] amputation stump / [facility] T87.81(ICD-10) Hospital Repository 06/27/2018 Active Other osteomyelitis, NA Active [facility] ankle and foot / [facility] M86.8X7(ICD-10) [place] Repository 06/24/2018 Active Disruption of wound, NA Active [facility] unspecified, initial [facility] encounter / [place] T81.30XA(ICD-10) Repository 06/14/2018 Unknown M86.9 - Osteomyelitis, Heladio, Active [place] unspecified / [facility] M86.9(ICD-10) Hospital Repository 06/16/2018 Unknown I45.10 - Unspecified [place], [place] Active [place] right bundle-branch Community block / I45.10(ICD-10) Hospital Repository 06/16/2018 Unknown R94.31 - Abnormal [place], [place] Active [place] electrocardiogram Community [ECG] [EKG] / Hospital R94.31(ICD-10) Repository 06/16/2018 Unknown I10 - Essential Corazon, Júnior Active [place] (primary) hypertension Community / I10(ICD-10) Hospital Repository 06/17/2018 Unknown I73.9 - Peripheral Cebul Smith Active [place] vascular disease, Community unspecified / Hospital I73.9(ICD-10) Repository 05/07/2018 Active detention (current) NA Active [place] use of anticoagulants Clinic Main / Z79.01(ICD-10) [place] Repository 04/04/2018 Unknown E11.69 - Type 2 Tereletsky, Active [place] diabetes mellitus with [place] [facility] other specified Hospital complication / Repository E11.69(ICD-10) 03/06/2018 Active Type 2 diabetes NA Active [facility] mellitus with foot [facility] ulcer / [place] E11.621(ICD-10) Repository 03/06/2018 Active 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 / Repository L97.512(ICD-10) 06/20/2016 Active Other specified NA Active [place] postprocedural states Clinic Main / Z98.890(ICD-10) [place] Repository 12/26/2017 Active Personal history of NA Active [place] pulmonary embolism / [facility] Z86.711(ICD-10) [place] Repository 12/02/2017 Active Type 2 diabetes NA Active [facility] mellitus with diabetic [facility] polyneuropathy / [place] E11.42(ICD-10) Repository 12/02/2017 Active Other specified NA Active [place] symptoms and signs Clinic [facility] involving the [place] circulatory and Repository respiratory systems / R09.89(ICD-10) 12/02/2017 Active Epidermal thickening, NA Active [place] unspecified / [facility] L85.9(ICD-10) [place] Repository 06/20/2016 Active detention (current) NA Active [place] use of insulin / [facility] Z79.4(ICD-10) [place] Repository 06/20/2016 Active Type 2 diabetes NA Active [facility] mellitus with diabetic [facility] chronic kidney disease [place] / E11.22(ICD-10) Repository 06/20/2016 Active Chronic kidney NA Active [facility] disease, stage 3 [facility] (moderate) / [place] N18.3(ICD-10) Repository 05/16/2015 Active Hyperlipidemia, NA Active [facility] unspecified / [facility] E78.5(ICD-10) [place] Repository 10/28/2012 Active Essential (primary) NA Active [facility] hypertension / [facility] I10(ICD-10) [place] Repository 11/26/2017 Active Type 2 diabetes NA Active [facility] mellitus with diabetic [facility] neuropathy, [place] unspecified / Repository E11.40(ICD-10) PROCEDURES PROCEDURES No Procedure Records FoundRESULTS RESULTS XR FOOT 3V AP/LAT/OBL Observed: 07/24/2018 Status: F Source: [facility] 10:25 AM [facility] [place] REPOSITORY * * *Final Report* * * [...] THE FIRST METATARSAL WITH INCREASED HETEROTOPIC CALCIFICATION. Automobile Dealer: PSCB Transcribe Date/Time: Jul 24 2018 4:16P Dictated by : JOJO HOWARD MD This examination was interpreted and the report reviewed and electronically signed by: JOJO HOWARD MD on Jul 24 2018 4:20PM EST [id number] Observed: 07/24/2018 Status: COMPLETED Source: [place] 10:17 AM [facility] [place] REPOSITORY HNO ID: [id number] Author: Azucena (Rt) Coty Inman Service: (none) Author Type: Gold Plater Type: Progress Notes Filed: 07/24/2018 10:26 AM [...] AM PROGRESS Observed: 07/24/2018 Status: COMPLETED Source: [place] 9:57 AM [facility] [place] REPOSITORY HNO ID: [id number] Author: Arminda Obregon Service: (none) Author Type: [...] scheduled to receive diabetic shoes with toe acid filler coming weeks. PAIN EVALUATION No data [...] disease, with long-term current use of insulin ([facility]) 06/20/2016 - Type II or unspecified type [...] by mouth once daily. blood sugar diagnostic (myeasydocsTOUCH ULTRA TEST) test strip Test blood sugar(s) [...] delayed closure on 05/28/18. Dr. Obregon at [facility] W/ OR W/O [...] DPM CNOV Observed: 07/24/2018 Status: COMPLETED Source: [place] 9:40 AM [facility] [place] REPOSITORY Office Visit (PODIWS) RICHARD ROY ([id number]) 1945 M Date Time Provider Department 07/24/18 [...] scheduled to receive diabetic shoes with toe acid filler coming weeks. PAIN EVALUATION No data found. 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 blood sugar diagnostic ([employer] ULTRA TEST) test strip Test blood sugar(s) [...] delayed closure on 05/28/18. Dr. Obregon at [facility] W/ OR W/O [facility] SPEC 03/12/11 - DEBRIDE SKIN AND SUBQ [...] polyneuropathy associated with type 2 diabetes mellitus ([facility]) PLAN: 1. Patient was examined and informed [...] before next visit. Referring Provider: ARMINDA OBREGON [[id number]] Allergies As of Date: 07/24/2018 (No Known Allergies) Date Reviewed: 07/24/2018 Reviewed by: Kayleen Zavala Ma - Fully Assessed Reason for Visit: Established Patient [175] Primary Visit Diagnosis:Post-operative state [Z98.890] Other Visit Diagnoses:Amputated toe of right foot (HCC) [Z89.421] Diabetic polyneuropathy associated with type 2 diabetes mellitus (HCC) [E11.42] Order(s):XR FOOT GENERAL 3V AP/LAT/OBL RT [[id number]] Order #: [id number] FUTURE Prescriptions as of 07/24/2018 Sig: WARFARIN [...] 07/24/18 PROGRESS Observed: 07/24/2018 Status: COMPLETED Source: [place] 9:36 AM [facility] [place] REPOSITORY O ID: [id number] Author: Kayleen Zavala Ma Service: (none) Author [...] 07/02/2018 Status: F Source: [place] 1:52 PM [facility] REPOSITORY TYPE CODE TESTS RESULT OUT OF RANGE REFERENCE UNITS LAB L102.0000 0-20 mm/hr Normal SED RATE 20 Performed By: #### L101.9900, L100.0500 #### [facility] [address] [place], [place], [id number] CBC-COMPLETE BLOOD CNT Collected: 07/02/2018 Status: F Source: [place] NO DIFF 1:52 PM [facility] REPOSITORY TYPE CODE TESTS RESULT OUT [...] 8.7 Performed By: #### L101.9900, L100.0500 #### [facility] [address] [place], [place], [address] BASIC METABOLIC Collected: 07/02/2018 Status: F Source: [place] PROFILE (BMP) 1:52 PM [facility] REPOSITORY TYPE CODE TESTS RESULT OUT [...] GAP 8 Performed By: #### L500.2500 #### [facility] [address] [place] [address]. [place], [address] PROGRESS Observed: 06/27/2018 Status: COMPLETED Source: [place] 1:55 PM [facility] [place] REPOSITORY HNO ID: [id number] Author: Annette Fernandez Service: (none) Author Type: [...] IVCON RT Observed: 06/27/2018 Status: F Source: [place] 1:41 PM [facility] [place] REPOSITORY * * *Final Report* * * DATE OF EXAM: Jun 27 2018 1:41PM [facility] 0074 - CT FOOT WO IVCON RT [...] evaluation by MRI with and without contrast. Automobile Dealer: PSCTeddy Transcribe Date/Time: Jun 27 2018 2:26P Dictated by : Kyaw HERNANDEZ MD This examination was interpreted and the report reviewed and electronically signed by: Kyaw HERNANDEZ MD on Jun 27 2018 2:39PM EST [id number] Observed: 06/24/2018 Status: COMPLETED Source: [place] 5:20 PM [facility] [facility] REPOSITORY HNO ID: [id number] Author: Arminda Hirschmarianne Service: (none) Author Type: [...] amputation of first toe of right foot ([facility]) 05/25/2018 - Hyperlipidemia LDL goal < 100 04/01/2012 - Pulmonary embolus, right ([facility]) 09/25/2013 - Status post aortic valve repair 2004 - Thoracic aneurysm without mention of rupture - Type 2 diabetes mellitus with stage 3 chronic kidney disease, with long-term current use of insulin ([facility]) 06/20/2016 - Type II or unspecified type diabetes mellitus without mention of complication, not stated as uncontrolled Current Outpatient Prescriptions: aspirin, enteric coated (ASPIRIN LOW DOSE) 81 mg EC tablet Take 1 tablet by mouth once daily. atorvastatin (LIPITOR) 40 mg tablet Take 1 tablet by mouth once daily. For cholesterol. blood sugar diagnostic (Insyde Software ULTRA TEST) test strip Test blood sugar(s) [...] delayed closure on 05/28/18. Dr. Obregon at [facility] W/ OR W/O [...] 3V AP/LAT/OBL Observed: 06/24/2018 Status: F Source: [place] RT 2:33 PM [facility] REPOSITORY * * *Final Report* * * [...] OF OSTEOMYELITIS IN THE RESIDUAL FIRST METATARSAL. Automobile Dealer: BLAKE Transcribe Date/Time: Jun 25 2018 2:28P Dictated by : JOJO HOWARD MD This examination was interpreted and the report reviewed and electronically signed by: JOJO HOWARD MD on Jun 25 2018 2:32PM EST [id number] Observed: 06/24/2018 Status: COMPLETED Source: [place] 2:24 PM [facility] [facility] REPOSITORY HNO ID: [id number] Author: Debra Bonilla (Rt) Coty Gonsales Service: (none) Author Type: Gold Plater Type: Progress Notes Filed: 06/24/2018 2:33 PM [...] PM CNOV Observed: 06/24/2018 Status: COMPLETED Source: [place] 1:40 PM [facility] [place] REPOSITORY Office Visit (PODIWS) KIRILLRICHARD Simons ([id number]) 1945 M Date Time Provider Department 06/24/18 [...] 09/25/2013 - Diabetes mellitus with neurological manifestation ([facility]) 09/08/2010 - Diverticulosis of colon (without mention of hemorrhage) - Encounter for monitoring Coumadin therapy 09/23/2013 INR goal 2.5-3.5 - Essential hypertension, benign 10/28/2012 - 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 atorvastatin (LIPITOR) 40 mg tablet Take 1 tablet by mouth once daily. For cholesterol. blood sugar diagnostic (Insy[employer] Software ULTRA TEST) test strip Test blood sugar(s) [...] delayed closure on 05/28/18. Dr. Obregon at [facility] W/ OR W/O [...] sooner if problems arise. Arminda Obregon DPM Referring Provider: ARMINDA OBREGON [[id number]] Allergies As of Date: 06/24/2018 (No Known Allergies) Date Reviewed: 06/24/2018 Reviewed by: Nadeen Vaughn LPN - Fully Assessed Reason for Visit: Surgical Followup [104] Cmt: one week follow up Primary Visit Diagnosis:Post-operative state [Z98.890] Other Visit Diagnoses:Wound dehiscence [T81.30XA] Amputated toe of right foot (HCC) [Z89.421] Order(s):XR FOOT GENERAL 3V AP/LAT/OBL RT [[id number]] Order #: [id number] FUTURE DIAB SHOE FOR DENSITY INSERT [[id number]] Order #: [id number] Prescriptions as of 06/24/2018 Sig: ASPIRIN 81 [...] F Source: [place] NO DIFF 12:30 PM [facility] REPOSITORY TYPE CODE TESTS RESULT OUT [...] 9.5 Performed By: #### L100.0500, L101.9900 #### [facility] [address] [place], [address] ERYTHROCYTE SED RATE Collected: 06/23/2018 Status: F Source: [place] 12:30 PM [facility] REPOSITORY TYPE CODE TESTS RESULT OUT OF RANGE REFERENCE UNITS LAB L102.0000 0-20 mm/hr High SED RATE 21 Performed By: #### L100.0500, L101.9900 #### [facility] [address] [place], [address] BASIC METABOLIC Collected: 06/23/2018 Status: F Source: [place] PROFILE (BMP) 12:30 PM [facility] REPOSITORY Order Comment: [id number] TYPE CODE TESTS RESULT OUT OF RANGE [...] GAP 7 Performed By: #### L500.2500 #### [facility] [address] [place], [address] PROTHROMBIN TIME W/INR Collected: 06/19/2018 Status: F Source: [place] 4:00 PM [facility] REPOSITORY TYPE CODE TESTS RESULT OUT OF RANGE REFERENCE UNITS LAB L300.4150 11.7-14.9 SECONDS High PROTIME 32.4 LAB L300.4200 Normal INR 3.1 Result Comment: RESULTS CALLED TO DR. SYED GUEST SERVICE SUPERVISOR FOR 06/19/18 1746 Tuan Salamanca. REPORT READ BACK BY SAME . Performed By: #### L300.3900 #### [facility] [address] [place], [address] CNPN Observed: 06/19/2018 Status: COMPLETED Source: [place] 12:00 AM [facility] REPOSITORY Telephone (FAMPWS) RICHARD ROY ([id number]) 1945 M Date Time Provider Department 06/19/18 [facility] During your visit today, we recorded the following information about you: Kee Benito MD 06/19/2018 6:08 PM Signed DOC received call fro [facility] lab. Patient's INR was 3.1 Patient taking 10 mg a day. Goal is INR of 2.5-3.5 Called patient and advised of results and to continue coumadin 10 mg daily. Will need INR in 2 weeks. Please call [facility] and inform them of need to get INR in 2 weeks. Also update warfarin tracker. Dmitry Roberto III MD 06/19/2018 6:20 PM Signed noted and agree DOMINGO Lucio MD, LPN 06/20/2018 11:30 AM Addendum Spoke with Suzanne from [facility] and advised her of Dr Benito's [...] Anticoagulation [8] Order(s):PROTHROMBIN TIME/PT [SQPT] Order #: [id number] Prescriptions as of 06/19/2018 Sig: ATORVASTATIN 10 [...] 06/19/18 PROGRESS Observed: 06/17/2018 Status: COMPLETED Source: [place] 2:00 PM [facility] REPOSITORY [facility] ID: [id number] Author: Armidna Obregon Service: (none) Author Type: Physician Type: [...] amputation of first toe of right foot ([facility]) 05/25/2018 - Hyperlipidemia LDL goal < 100 04/01/2012 - Pulmonary embolus, right ([facility]) 09/25/2013 - Status post aortic valve repair 2004 - Thoracic aneurysm without mention of rupture - Type 2 diabetes mellitus with stage 3 chronic kidney disease, with long-term current use of insulin ([facility]) 06/20/2016 - Type II or unspecified type [...] by mouth once daily. blood sugar diagnostic (EdifilmUCH ULTRA TEST) test strip Test blood sugar(s) [...] delayed closure on 05/28/18. Dr. 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 blood sugar diagnostic (EdifilmUCH ULTRA TEST) test strip Test blood sugar(s) [...] delayed closure on 05/28/18. Dr. Obregon at [facility] W/ OR W/O [...] Strips in place. Referring Provider: ARMINDA OBREGON [[id number]] Allergies As of Date: 06/17/2018 (No Known [...] 06/18/18 CNPN Observed: 06/17/2018 Status: COMPLETED Source: [place] 12:00 AM [facility] REPOSITORY [facility] RICHARD ROY ([id number]) 1945 M Date Time Provider Department 06/17/18 [facility] During your visit today, we recorded the [...] 40 mg while he was in the [facility] by Dr. Alford. Please re-submit to [facility] in [place] today because he only 1 pill left. Please call the patient once this is completed at: [phone]. Allergies As of Date: 06/17/2018 (No Known [...] 06/16/2018 Status: F Source: [place] 10:00 AM [facility] REPOSITORY TYPE CODE TESTS RESULT OUT OF RANGE REFERENCE UNITS LAB L102.0000 0-20 mm/hr High SED RATE 23 Performed By: #### L101.9900, L100.0500 #### [facility] [address] [place], [address] CBC-COMPLETE BLOOD CNT Collected: 06/16/2018 Status: F Source: [place] NO DIFF 10:00 AM [facility] REPOSITORY TYPE CODE TESTS RESULT OUT [...] 10.0 Performed By: #### L101.9900, L100.0500 #### [facility] [address] [place], [address] BASIC METABOLIC Collected: 06/16/2018 Status: F Source: [place] PROFILE (BMP) 10:00 AM [facility] REPOSITORY TYPE CODE TESTS RESULT OUT [...] GAP 9 Performed By: #### L500.2500 #### [facility] [address] [place], [address] PROGRESS Observed: 06/10/2018 Status: COMPLETED Source: [place] 3:32 PM [facility] REPOSITORY [facility] ID: [id number] Author: Arminda Obregon Service: (none) Author Type: [...] DPM PROGRESS Observed: 06/10/2018 Status: COMPLETED Source: [place] 12:58 PM [facility] REPOSITORY [facility] ID: [id number] Author: Blaire De La Torre RN Service: (none) Author Type: (none) Type: Progress Notes Filed: 06/10/2018 3:38 PM Note Text: AMB ROOMING INTAKE FLOWSHEET DATA Risk Screening Do you have concerns about personal safety or safety in the home?: No Patient here s/p R 1st ray amputation and delayed closure. He denies any pain, n/v/f/c. CNOV Observed: 06/10/2018 Status: COMPLETED Source: [place] 12:55 PM [facility] REPOSITORY Office Visit (PODIWS) RICHARD ROY ([id number]) 1945 M Date Time Provider Department 06/10/18 [...] Arminda Obregon DPM Referring Provider: ARMINDA OBREGON [[id number]] Allergies As of Date: 06/10/2018 (No Known [...] BLOOD CNT Collected: 06/09/2018 Status: F Source: [place] NO DIFF 11:30 AM [facility] REPOSITORY TYPE CODE TESTS RESULT OUT [...] 10.1 Performed By: #### L100.0500, L101.9900 #### [facility] [address] [place], [address] ERYTHROCYTE SED RATE Collected: 06/09/2018 Status: F Source: [place] 11:30 AM [facility] REPOSITORY TYPE CODE TESTS RESULT OUT OF RANGE REFERENCE UNITS LAB L102.0000 0-20 mm/hr High SED RATE 25 Performed By: #### L100.0500, L101.9900 #### [facility] [address] [facility] [place], [address] BASIC METABOLIC Collected: 06/09/2018 Status: F Source: [place] PROFILE (BMP) 11:30 AM [facility] REPOSITORY TYPE CODE TESTS RESULT OUT [...] GAP 12 Performed By: #### L500.2500 #### [facility] [place], [address] PROGRESS Observed: 06/05/2018 Status: COMPLETED Source: [place] 8:42 PM [facility] REPOSITORY [facility] ID: [id number] Author: Arminda Obregon Service: (none) Author Type: [...] DPM PROGRESS Observed: 06/05/2018 Status: COMPLETED Source: [place] 7:23 AM [facility] REPOSITORY [facility] ID: [id number] Author: Arminda Obregon Service: (none) Author Type: [...] 09/25/2013 - Diabetes mellitus with neurological manifestation ([facility]) 09/08/2010 - Diverticulosis of colon (without mention of hemorrhage) - Encounter for monitoring Coumadin therapy 09/23/2013 INR goal 2.5-3.5 - Essential hypertension, benign 10/28/2012 - 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 blood sugar diagnostic ([employer] ULTRA TEST) test strip Test blood sugar(s) [...] delayed closure on 05/28/18. Dr. Obregon at [facility] W/ OR W/O [facility] SPEC 03/12/11 - DEBRIDE SKIN AND SUBQ [...] DPM PROGRESS Observed: 06/04/2018 Status: COMPLETED Source: [place] 4:21 PM [facility] REPOSITORY [facility] ID: [id number] Author: Karly Ruiz Ma Service: (none) Author Type: (none) Type: Progress Notes Filed: 06/05/2018 7:26 AM Note Text: AMB ROOMING INTAKE FLOWSHEET DATA Risk Screening Do you have concerns about personal safety or safety in the home?: No Patient here to have drain pulled today. 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 blood sugar diagnostic (EdifilmUCH ULTRA TEST) test strip Test blood sugar(s) [...] delayed closure on 05/28/18. Dr. Obregon at [facility] W/ OR W/O [facility] SPEC 03/12/11 - DEBRIDE SKIN AND SUBQ [...] Arminda Obregon DPM Referring Provider: ARMINDA OBREGON [[id number]] Allergies As of Date: 06/04/2018 (No Known [...] 06/05/18 PROGRESS Observed: 06/04/2018 Status: COMPLETED Source: [place] 2:35 PM [facility] REPOSITORY [facility] ID: [id number] Author: Blaire De La Torre RN Service: (none) Author Type: (none) Type: Progress Notes Filed: 06/05/2018 8:53 PM Note Text: Betadine and 4x4 applied to R foot. Covered with yu and BERNIE. SARIAHOV Observed: 06/03/2018 Status: COMPLETED Source: [place] 3:00 PM [facility] REPOSITORY Office Visit (PODIWS) RICHARD ROY ([id number]) 1945 M Date Time Provider Department 06/03/18 [...] Arminda Obregon DPM Referring Provider: ARMINDA OBREGON [[id number]] Allergies As of Date: 06/03/2018 (No Known [...] F Source: [place] PROFILE (BMP) 11:45 AM [facility] REPOSITORY TYPE CODE TESTS RESULT OUT [...] GAP 4 Performed By: #### L500.2500 #### [facility] [address] [place], [place], [address] CBC-COMPLETE BLOOD CNT Collected: 06/02/2018 Status: F Source: [place] NO DIFF 11:45 AM [facility] REPOSITORY TYPE CODE TESTS RESULT OUT [...] 9.5 Performed By: #### L100.0500, L101.9900 #### [facility] [address] [place], [address] ERYTHROCYTE SED RATE Collected: 06/02/2018 Status: F Source: [place] 11:45 AM [facility] REPOSITORY TYPE CODE TESTS RESULT OUT OF RANGE REFERENCE UNITS LAB L102.0000 0-20 mm/hr High SED RATE 37 Performed By: #### L100.0500, L101.9900 #### [facility] [address] [place], [address] PROGRESS Observed: 05/30/2018 Status: COMPLETED Source: [place] 10:09 PM [facility] REPOSITORY [facility] ID: [id number] Author: Arminda Obregon Service: (none) Author Type: [...] DPM PROGRESS Observed: 05/30/2018 Status: COMPLETED Source: [place] 10:40 AM [facility] REPOSITORY [facility] ID: [id number] Author: Azucena (Rt) Coty Inman Service: (none) Author Type: Gold Plater Type: Progress Notes Filed: 05/30/2018 10:40 AM [...] 3V AP/LAT/OBL Observed: 05/30/2018 Status: F Source: [facility] 10:39 AM [facility] REPOSITORY * * *Final Report* * * [...] place. Satisfactory appearance. IMPRESSION: Postsurgical changes, unremarkable. Automobile Dealer: BLAKE Transcribe Date/Time: May 31 2018 9:05P Dictated by : TEJA MAURRE MD This examination was interpreted and the report reviewed and electronically signed by: TEJA MAURER MD on May 31 2018 9:06PM EST [id number] CNOV Observed: 05/30/2018 Status: COMPLETED Source: [place] 10:00 AM [facility] [facility] REPOSITORY Office Visit (PODIWS) RICHARD ROY ([id number]) 1945 M Date Time Provider Department 05/30/18 [...] Arminda Obregon DPM Referring Provider: ARMINDA OBREGON [[id number]] Allergies As of Date: 05/30/2018 (No Known Allergies) Date Reviewed: 05/30/2018 Reviewed by: Libby Thibodeaux RN - Fully Assessed Reason for Visit: Post Op [174] Cmt: s/p 05/25 for delayed closure right great toe Reason For Visit History Recorded Primary Visit Diagnosis:Post-operative state [Z98.890] Order(s):XR FOOT GENERAL 3V AP/LAT/OBL RT [[id number]] Order #: [id number] FUTURE Prescriptions as of 05/30/2018 Sig: METFORMIN [...] 05/30/18 PROGRESS Observed: 05/30/2018 Status: COMPLETED Source: [place] 9:44 AM [facility] REPOSITORY [facility] ID: [id number] Author: Libby Thibodeaux RN Service: (none) Author [...] RN PROGRESS Observed: 05/29/2018 Status: COMPLETED Source: [place] 4:45 PM [facility] REPOSITORY [facility] ID: [id number] Author: Blaire De La Torre RN Service: (none) Author Type: (none) Type: Progress Notes Filed: 05/29/2018 4:54 PM Note Text: OPERATIVE NOTATION FOR [facility] SURGICAL PROCEDURE. Richard Roy 1945 [id number] male May 25, 2018 PROCEDURE: Partial 1st ray resection, R May 28, 2018 PROCEDURE: Delayed closure of R foot wound SURGEON: Arminda Obregon DPM APPLICATION INTEGRATION ARCHITECT: None DEPT: WQ PROVIDER: Arminda Obregon DPM POS: 6P2=[id number] DIAGNOSIS: (E11.621, L97.519) Diabetic ulcer of toe [...] < 100 04/01/2012 - Pulmonary embolus, right ([facility]) 09/25/2013 - Status post aortic valve repair 2004 - Thoracic aneurysm without mention of rupture - Type 2 diabetes mellitus with stage 3 chronic kidney disease, with long-term current use of insulin ([facility]) 06/20/2016 - Type II or unspecified type diabetes mellitus without mention of complication, not stated as uncontrolled COMORBIDITIES - HTN, DM2 Post Op Occurrences - None Wound Classification - Clean Operative note dictated in the [facility] dictation system. DISCHARGE SUMMARY Observed: 05/29/2018 Status: F Source: [place] 2:34 PM [facility] REPOSITORY [facility] Medical Records Department [address] [place] [address] Discharge Summary 05/29/18 1426 MR#: [id number] Acct: [id number] Name: RICHARD ROY Rep #: [id number] : 1945 72 From: Bear Nolan MD PCP: Dmitry Roberto III, MD Status: ADM IN Location: MS3 [id number] Discharge Date and Diagnosis - Problem List [...] Leighton Fabian DO at 14:19 EST Tel [phone], Service support , Foot X-Ray 05/25/18 10:31 IMPRESSION: As above Electronically Signed: Alejandro Singh DO at 15:25 EST Tel , Service support , Foot X-Ray 05/28/18 12:00 IMPRESSION: Fluoroscopic guidance for wound closure of right foot. Prior amputation of the first metatarsal again noted. Electronically Signed: Jojo Wilcox MD at 12:09 EST , Service support , Consultations 05/22/18 14:37 Consult: Onc/Wound/military source operations specialist Routine Comment: Reason for Consult:: for poosible woun vac Dr. ndiaye, infectious disease. Dr. Romano,[facility] podiatry medicine. Operations: - - Incision and drainage of the right foot with first ray resection, delayed closure. Summary of Care Provided: Patient seen and examined on the discharge and appeared to be stable for discharge home. He denied any significant complaints. His vital signs were stable. 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 Patient discharged home with home health in [...] applicable Code Visit Inpatient E AND M: 52359 Disch Hosp 05/29/18 1434 <Electronically signed by Bear Nolan MD> Date Bear Nolan MD Cosigner Signature (if applicable): Date CC: WINSOME Obregon; Dmitry Roberto III, MD; Bear Nolan; Smith Ndiaye MD Signed BEDSIDE GLUCOSE Collected: 05/29/2018 Status: F Source: [place] 11:54 AM [facility] REPOSITORY TYPE CODE TESTS RESULT OUT OF REFERENCE UNITS RANGE LAB L501.080 70-110 mg/dL High BEDSIDE GLU 226 Result Comment: MANAGEMENT OF PATIENT CARE PER NURSING PROTOCOL Performed By: #### L501.080 #### [facility] Laboratory Point of Care [address] [place] [address] DISCHARGE INSTRUCTION Observed: 05/29/2018 Status: F Source: [place] 9:23 AM [facility] REPOSITORY [facility] Medical Records Department [address] [place] [address] Instructions for Home/Discharge Instructions 05/29/18 0921 MR#: [id number] Acct: [id number] Name: RICHARD ROY Rep #: [id number] : 1945 72 From: Bear Nolan MD [...] MD When: please call his office. 05/29/18 4640 <Electronically signed by Bear Nolan MD> Date Bear Nolan MD CC: WINSOME Obregon; Dmitry Roberto III, MD; Smith Ndiaye MD OPERATIVE REPORT Observed: 05/29/2018 Status: F Source: [place] 7:01 AM [facility] REPOSITORY [facility] Medical Records Department [address] [place] [address] Operative Report 05/28/182024 MR#: [id number] Acct: [id number] Name: RICHARD ROY Rep #: [id number] : 1945 72 From: Arminda Obregon DPM PCP: Dmitry Roberto III, MD Status: ADM IN Y Location: [place] [id number] Report of Operation Date of Procedure: 05/28/18 Pre-Operative Diagnosis: diabetic foot infection with osteomyelitis right foot Post-Operative Diagnosis: diabetic foot infection with osteomyelitis, right 1st metatarsal Surgery/Procedure Performed:: delayed closure of wound, right foot Description of Surgical Findings:: good clean tissue with no signs of purulence incision completely closed without tension news clipping cutter: none Type of Anesthesia:: Local MAC Specimen's [...] right foot that has been treated by wa daily with irrigation. He is scheduled for [...] BEDSIDE GLUCOSE Collected: 05/29/2018 Status: F Source: [place] 6:56 AM [facility] REPOSITORY TYPE CODE TESTS RESULT OUT OF REFERENCE UNITS RANGE LAB L501.080 70-110 mg/dL High BEDSIDE GLU 162 Result Comment: MANAGEMENT OF PATIENT CARE PER NURSING PROTOCOL Performed By: #### L501.080 #### [facility] Laboratory Point of Care [address] [place], [place] [address] PROTHROMBIN TIME W/INR Collected: 05/29/2018 Status: F Source: [place] 6:00 AM [facility] REPOSITORY Order Comment: SPECIMEN OBTAINED FROM LINE DRAW TYPE CODE TESTS RESULT OUT OF RANGE REFERENCE UNITS LAB L300.4150 11.7-14.9 SECONDS Normal PROTIME 14.3 LAB L300.4200 Normal INR 1.1 Performed By: #### L300.3900 #### [facility] [place], [address] CNOP Observed: 05/29/2018 Status: COMPLETED Source: [place] 12:00 AM [facility] REPOSITORY Operative Note (Enc) (PODIWS) Progress Notes: Blaire De La Torre RN 05/29/2018 4:54 PM Signed OPERATIVE NOTATION FOR [facility] SURGICAL PROCEDURE. Richard Roy 1945 [id number] male May 25, 2018 PROCEDURE: Partial 1st ray resection, R May 28, 2018 PROCEDURE: Delayed closure of R foot wound SURGEON: Arminda Obregon DPM APPLICATION INTEGRATION ARCHITECT: None DEPT: WQ PROVIDER: Arminda Obregon DPM POS: 5S3=BXVWOHPER DIAGNOSIS: (E11.621, L97.519) Diabetic ulcer of toe of right foot associated with type 2 diabetes mellitus, unspecified ulcer stage ([facility]) (primary encounter diagnosis) (T81.30XA) Wound dehiscence ASA CLASS: 2 - mild FINDINGS: see path COMPLICATIONS: None PMHx - PAST MEDICAL HISTORY Diagnosis Date - Cholelithiasis 09/25/2013 - Diabetes mellitus with neurological manifestation ([facility]) 09/08/2010 - Diverticulosis of colon (without mention of hemorrhage) - Encounter for monitoring Coumadin therapy 09/23/2013 INR goal 2.5-3.5 - Essential hypertension, benign 10/28/2012 - 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 ([facility]) 05/25/2018 - Hyperlipidemia LDL goal < 100 04/01/2012 - Pulmonary embolus, right ([facility]) 09/25/2013 - Status post aortic valve repair 2004 - Thoracic aneurysm without mention of rupture - Type 2 diabetes mellitus with stage 3 chronic kidney disease, with long-term current use of insulin ([facility]) 06/20/2016 - Type II or unspecified type diabetes mellitus without mention of complication, not stated as uncontrolled COMORBIDITIES - HTN, DM2 Post Op Occurrences - None Wound Classification - Clean Operative note dictated in the [facility] dictation system. Encounter Status:Closed by BLAIRE DE LA TORRE RN on 05/29/18 BEDSIDE GLUCOSE Collected: 05/28/2018 Status: F Source: [place] 9:07 PM [facility] REPOSITORY TYPE CODE TESTS RESULT OUT OF REFERENCE UNITS RANGE LAB L501.080 70-110 mg/dL High BEDSIDE GLU 231 Result Comment: MANAGEMENT OF PATIENT CARE PER NURSING PROTOCOL Performed By: #### L501.080 #### [facility] Laboratory Point of Care [address] [place] [address] BEDSIDE GLUCOSE Collected: 05/28/2018 Status: F Source: [place] 4:28 PM [facility] REPOSITORY TYPE CODE TESTS RESULT OUT OF REFERENCE UNITS RANGE LAB L501.080 70-110 mg/dL High BEDSIDE GLU 154 Result Comment: MANAGEMENT OF PATIENT CARE PER NURSING PROTOCOL Performed By: #### L501.080 #### [facility] Laboratory Point of Care [address] [facility] [place] [address] FOOT MIN 3 VIEWS Observed: 05/28/2018 Status: F Source: [place] 11:47 AM [facility] REPOSITORY [facility] Imaging Services [address] [place] [address] Foot min 3 Views MR#: [id number] Acct: [id number] Name: RICHARD ROY Rep #: [id number] : 1945 M 72 From: Genaro Wilcox MD PCP: Dmitry Roberto III, MD Status: ADM IN Study: Foot min 3 Views Date of Exam: 05/28/18 Exam# [id number] Ordering Dr: Arminda Obregon DPM STUDY: X-RAY [...] CC: WINSOME Obregon; Dmitry Roberto III, MD Automobile Dealer: Signed 12 LEAD ELECTROCARDIOGRAM Observed: 05/28/2018 Status: F Source: [place] 11:36 AM [facility] REPOSITORY [facility] Cardiovascular Services [address] [place] [address] 12 Lead EKG 05/25/18 0523 MR#: [id number] Acct: [id number] Name: RICHARD ROY Rep #: [id number] : 1945 72 From: Júnior Chandra MD Attending Dr: Bear Nolan Status: ADM IN Ordering Dr: Aneesh Nuñez MD Date: 05/25/18 [place] [facility] Sex: M C Admitted: 05/22/18 Test Reason [...] found Confirmed by CORAZON COLBERT, JÚNIOR ([id number]), editor news MARY INMAN ([id number]) on 05/28/2018 11:36:18 AM Referred By: Landen Blanco Confirmed By:JÚNIOR CHANDRA MD 05/28/18 1136 Date Júnior Chandra MD CC: Landen Blanco MD; Aneesh Nuñez MD; Dmitry Roberto III, MD; Bear Nolan Signed BEDSIDE GLUCOSE Collected: 05/28/2018 Status: F Source: [place] 10:11 AM [facility] REPOSITORY TYPE CODE TESTS RESULT OUT OF REFERENCE UNITS RANGE LAB L501.080 70-110 mg/dL High BEDSIDE GLU 188 Result Comment: MANAGEMENT OF PATIENT CARE PER NURSING PROTOCOL Performed By: #### L501.080 #### [facility] Laboratory Point of Care [address] [place] [address] BEDSIDE GLUCOSE Collected: 05/28/2018 Status: F Source: [place] 6:49 AM [facility] REPOSITORY TYPE CODE TESTS RESULT OUT OF REFERENCE UNITS RANGE LAB L501.080 70-110 mg/dL High BEDSIDE GLU 207 Result Comment: MANAGEMENT OF PATIENT CARE PER NURSING PROTOCOL Performed By: #### L501.080 #### [facility] Laboratory Point of Care [address] [place] [address] OPERATIVE REPORT Observed: 05/28/2018 Status: F Source: [place] 6:13 AM [facility] REPOSITORY [facility] Medical Records Department [address] [place] [address] Operative Report 05/25/185 MR#: [id number] Acct: [id number] Name: RICHARD ROY Rep #: [id number] : 1945 72 From: Arminda Obregon DPM PCP: Dmitry Roberto III, MD Status: ADM IN Y Location: [facility] [id number] Report of Operation Date of Procedure: 05/25/18 [...] will plan for delayed closure on Saturday. news clipping cutter: none Type of Anesthesia:: Local MAC Specimen's [...] selected surgical intervention. Patient was admitted to [facility]. upon admission, his INR was 3.1. Ancef [...] signed by Arminda Obregon DPM> Date Arminda Orbegon DPM CC: WINSOME Obregon; Landen Blanco MD; Dmitry Roberto III, MD; Smith Ndiaye MD Signed CBC W/DIFF, AUTOMATED Collected: 05/28/2018 Status: F Source: PATITO 5:35 AM [facility] REPOSITORY Order Comment: SPECIMEN OBTAINED FROM [...] Lymph 2.15 Performed By: #### L100.0100 #### [facility] [place], [address] BASIC METABOLIC Collected: 05/28/2018 Status: F Source: PATITO PROFILE (BMP) 5:35 AM [facility] REPOSITORY Order Comment: SPECIMEN OBTAINED FROM [...] GAP 7 Performed By: #### L500.2500 #### [facility] [place], [address] Observed: 05/28/2018 Status: F Source: [place] CULTURE, DEEP WOUND 12:00 AM [facility] REPOSITORY Order Date: 02/13/17 Comments: 1ST [...] 1 S (NF) indicates non-formulary drug at [facility]. Approval by Infectious Disease Specialist required before non-formulary drugs may be ordered and/or dispensed. * CLSI guidelines does not recommend testing of cephalosporins. This interpretation is deduced from Beta-lactam/penicillin results. Cult, Anaerobic No anaerobic bacteria isolated. Performed By: #### M100.1500 #### [facility] [address] [place], [address] BONE (FX/NONFRACTURE) Observed: 05/28/2018 Status: F Source: S[place]AT 12:00 AM [facility] REPOSITORY Patient: RICHARD ROY : 1945 (72/M) Acct Num: [id number] Phys: Bear Nolan Unit Num: [id number] Loc: MS3 [id number] Specimen: [id number] Received: 05/29/18 - 1234 Spec Type: Bone [...] decalcification. / AM:sp 05/29/18 TC: 5 CPT: 33296, 30743 HEADER OPERATION: Partial 1st ray amputation, right foot PRE-OP DIAGNOSIS: Osteomyelitis, right foot TISSUE SUBMITTED: Pre-lavage right 1st metatarsal bone MICROSCOPIC DESCRIPTION Slides are reviewed. MICROSCOPIC DIAGNOSIS Pre-lavage right first metatarsal bone, amputation: A piece of bone with reactive changes, negative for acute osteomyelitis. SJ:radhika 06/04/18 Signed Evaristo Dela Cruz 06/04/18 <signature on file> Performed By: #### PBON #### [facility] [address] [place], [address] [employer] Observed: 05/28/2018 Status: F Source: PATITO CULT/SMEAR [id number] 12:00 [facility] REPOSITORY Comments: 1ST METATARSAL RIGHT FOOT [...] WEEKS. Performed By: #### M100.3880 #### [facility] [address] [place], [address] Observed: 05/28/2018 Status: F Source: PATITO DEAN, FUNGUS W/ 12:00 [facility] [id number] REPOSITORY Comments: PRE-LAVAGE RIGHT 1ST METATARSAL Is this test to exclude patient from TB Isolation? Breonna Reese,[id number] TESTING PERFORMED AT [facility]. ORIGINAL REPORT ON FILE IN LAB CONTAINS ADDITIONAL TEST SITE INFORMATION. CUF No yeast or mold isolated after [address] [facility] ORIGINAL REPORT ON FILE IN LAB CONTAINS ADDITIONAL TEST SITE INFORMATION. Fungus Stain No yeast or mold observed. Performed By: #### M600.1900 #### [facility] [address] [place] [address]. [place], [place], [id number] BEDSIDE GLUCOSE Collected: 05/27/2018 Status: F Source: PATITO 10:13 PM [facility] REPOSITORY TYPE CODE TESTS RESULT OUT OF REFERENCE UNITS RANGE LAB L501.080 70-110 mg/dL High BEDSIDE GLU 230 Result Comment: MANAGEMENT OF PATIENT CARE PER NURSING PROTOCOL Performed By: #### L501.080 #### [facility] Point of Care [address] [place], [place] [address] BEDSIDE GLUCOSE Collected: 05/27/2018 Status: F Source: PATITO 4:44 PM [facility] REPOSITORY TYPE CODE TESTS RESULT OUT OF REFERENCE UNITS RANGE LAB L501.080 70-110 mg/dL High BEDSIDE GLU 212 Result Comment: MANAGEMENT OF PATIENT CARE PER NURSING PROTOCOL Performed By: #### L501.080 #### [facility] Point of Care [address] [place] [address] BEDSIDE GLUCOSE Collected: 05/27/2018 Status: F Source: PATITO 11:32 AM [facility] REPOSITORY TYPE CODE TESTS RESULT OUT OF REFERENCE UNITS RANGE LAB L501.080 70-110 mg/dL High BEDSIDE GLU 218 Result Comment: MANAGEMENT OF PATIENT CARE PER NURSING PROTOCOL Performed By: #### L501.080 #### [facility] Point of Care [address] [place] [address] BEDSIDE GLUCOSE Collected: 05/27/2018 Status: F Source: PATITO 6:43 AM [facility] REPOSITORY TYPE CODE TESTS RESULT OUT OF REFERENCE UNITS RANGE LAB L501.080 70-110 mg/dL High BEDSIDE GLU 198 Result Comment: MANAGEMENT OF PATIENT CARE PER NURSING PROTOCOL Performed By: #### L501.080 #### [facility] Point of Care [address] [place] [address] BEDSIDE GLUCOSE Collected: 05/26/2018 Status: F Source: PATITO 9:51 PM [facility] REPOSITORY TYPE CODE TESTS RESULT OUT OF REFERENCE UNITS RANGE LAB L501.080 70-110 mg/dL High BEDSIDE GLU 221 Result Comment: MANAGEMENT OF PATIENT CARE PER NURSING PROTOCOL Performed By: #### L501.080 #### [facility] Point of Care [address] [place] [address] BEDSIDE GLUCOSE Collected: 05/26/2018 Status: F Source: PATITO 4:15 PM [facility] REPOSITORY TYPE CODE TESTS RESULT OUT OF REFERENCE UNITS RANGE LAB L501.080 70-110 mg/dL High BEDSIDE GLU 213 Result Comment: MANAGEMENT OF PATIENT CARE PER NURSING PROTOCOL Performed By: #### L501.080 #### [facility] Point of Care [address] [place] [address] BEDSIDE GLUCOSE Collected: 05/26/2018 Status: F Source: PATITO 11:34 AM [facility] REPOSITORY TYPE CODE TESTS RESULT OUT OF REFERENCE UNITS RANGE LAB L501.080 70-110 mg/dL High BEDSIDE GLU 262 Result Comment: MANAGEMENT OF PATIENT CARE PER NURSING PROTOCOL Performed By: #### L501.080 #### [facility] Point of Care [address] [place] [address] BEDSIDE GLUCOSE Collected: 05/26/2018 Status: F Source: S[place]AT 6:25 AM [facility] REPOSITORY TYPE CODE TESTS RESULT OUT OF REFERENCE UNITS RANGE LAB L501.080 70-110 mg/dL High BEDSIDE GLU 189 Result Comment: MANAGEMENT OF PATIENT CARE PER NURSING PROTOCOL Performed By: #### L501.080 #### [facility] Point of Care [address] [place] [address] CBC W/DIFF, AUTOMATED Collected: 05/26/2018 Status: F Source: [place]AT 5:44 AM [facility] REPOSITORY TYPE CODE TESTS RESULT OUT [...] Lymph 1.63 Performed By: #### L100.0100 #### [facility] [address] [place], [address] PROTHROMBIN TIME W/INR Collected: 05/26/2018 Status: F Source: [place]AT 5:44 AM [facility] REPOSITORY TYPE CODE TESTS RESULT OUT OF RANGE REFERENCE UNITS LAB L300.4150 11.7-14.9 SECONDS High PROTIME 16.4 LAB L300.4200 Normal INR 1.3 Performed By: #### L300.3900 #### [facility] [address] [facility] [place], [address] BONE (FX/NONFRACTURE) Observed: 05/26/2018 Status: F Source: S[place]AT 12:00 AM [facility] REPOSITORY Patient: RICHARD ROY : 1945 (72/M) Acct Num: [id number] Phys: Bear Nolan Unit Num: [id number] Loc: MS3 [id number] Specimen: [id number] Received: 05/26/181428 Spec Type: Bone TISSUES 1 [...] after decalcification. 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 AM:elizabeth 05/29/18 Signed Alvarez [facility] 05/29/18 <signature on file> Performed By: #### PBON #### [facility] [address] [place], [place], [id number] BEDSIDE GLUCOSE Collected: 05/25/2018 Status: F Source: PATITO 9:55 PM [facility] REPOSITORY TYPE CODE TESTS RESULT OUT OF REFERENCE UNITS RANGE LAB L501.080 70-110 mg/dL High BEDSIDE GLU 217 Result Comment: MANAGEMENT OF PATIENT CARE PER NURSING PROTOCOL Performed By: #### L501.080 #### [facility] Point of Care [address] [place], [place] [address] BEDSIDE GLUCOSE Collected: 05/25/2018 Status: F Source: PATITO 4:14 PM [facility] REPOSITORY TYPE CODE TESTS RESULT OUT OF REFERENCE UNITS RANGE LAB L501.080 70-110 mg/dL High BEDSIDE GLU 170 Result Comment: MANAGEMENT OF PATIENT CARE PER NURSING PROTOCOL Performed By: #### L501.080 #### [facility] Point of Care [address] [place], [place] [address] CBC W/DIFF, AUTOMATED Collected: 05/25/2018 Status: F Source: PATITO 3:35 PM [facility] REPOSITORY TYPE CODE TESTS RESULT OUT [...] Lymph 1.82 Performed By: #### L100.0100 #### [facility] [address] [facility] [place], [address] FOOT 2 VIEWS Observed: 05/25/2018 Status: F Source: [place] 10:32 AM [facility] REPOSITORY [facility] Imaging Services [address] [place] [address] Foot 2 Views MR#: [id number] Acct: [id number] Name: RICHARD ROY Rep #: [id number] : 1945 M 72 From: Alejandro Singh DO PCP: Dmitry Roberto III, MD Status: ADM IN Study: Foot 2 Views Date of Exam: 05/25/18 Exam# [id number] Ordering Dr: Arminda Obregon DPM STUDY: X-RAY [...] CC: WINSOME Obregon; Dmitry Roberto III, MD Automobile Dealer: Signed FOOT 2 VIEWS Observed: 05/25/2018 Status: F Source: [place] 7:22 AM [facility] REPOSITORY [facility] Imaging Services [address] [place] [address] Foot 2 Views MR#: [id number] Acct: [id number] Name: RICHARD ROY Rep #: [id number] : 1945 M 72 From: Leighton Fabian DO PCP: Dmitry Roberto III, MD Status: ADM IN Study: Foot 2 Views Date of Exam: 05/25/18 Exam# [id number] Ordering Dr: Arminda Obregon DPM STUDY: X-RAY [...] Signed: Leighton PhillipsonDO at 14:19 EST Tel [phone], Service support , CC: WINSOME Obregon; Dmitry Roberto III, MD Automobile Dealer: Signed BEDSIDE GLUCOSE Collected: 05/25/2018 Status: F Source: PATITO 6:22 AM [facility] REPOSITORY TYPE CODE TESTS RESULT OUT OF REFERENCE UNITS RANGE LAB L501.080 70-110 mg/dL High BEDSIDE GLU 165 Result Comment: MANAGEMENT OF PATIENT CARE PER NURSING PROTOCOL Performed By: #### L501.080 #### [facility] Point of Care [address] [place], [place] [id number] CBC-COMPLETE BLOOD CNT Collected: 05/25/2018 Status: F Source: PATITO NO DIFF 6:01 AM [facility] REPOSITORY TYPE CODE TESTS RESULT OUT [...] MPV 9.1 Performed By: #### L100.0500 #### [facility] [address] [place], [address] BASIC METABOLIC Collected: 05/25/2018 Status: F Source: PATITO PROFILE (BMP) 6:01 AM [facility] REPOSITORY TYPE CODE TESTS RESULT OUT [...] GAP 11 Performed By: #### L500.2500 #### [facility] [address] [place], [place], [address] PROTHROMBIN TIME W/INR Collected: 05/25/2018 Status: F Source: PATITO 6:01 AM [facility] REPOSITORY TYPE CODE TESTS RESULT OUT OF RANGE REFERENCE UNITS LAB L300.4150 11.7-14.9 SECONDS High PROTIME 18.9 LAB L300.4200 Normal INR 1.6 Performed By: #### L300.3900 #### [facility] [address] [place], [address] HEMOGLOBIN A1C Collected: 05/25/2018 Status: F Source: [place] 6:01 AM [facility] REPOSITORY TYPE CODE TESTS RESULT OUT OF RANGE REFERENCE UNITS LAB L501.9985 4.2-6.3 % High HGB A1C 6.9 Performed By: #### L501.9985 #### [facility] [address] [place], [address] Observed: 05/25/2018 Status: F Source: PATITO CULTURE, DEEP WOUND 12:00 AM [facility] REPOSITORY Order Date: 02/13/17 Comments: PRELAVAGE [...] 1 S (NF) indicates non-formulary drug at [facility]. Approval by Infectious Disease Specialist required before non-formulary drugs may be ordered and/or dispensed. * CLSI guidelines does not recommend testing of cephalosporins. This interpretation is deduced from Beta-lactam/penicillin results. Cult, Anaerobic No anaerobic bacteria isolated. Performed By: #### M100.1500 #### [facility] [address] [place], [address] Observed: 05/25/2018 Status: F Source: PATITO CULTURE, DEEP WOUND 12:00 AM [facility] REPOSITORY Order Date: 02/13/17 Comments: PRELAVAGE [...] 1 S (NF) indicates non-formulary drug at [facility]. Approval by Infectious Disease Specialist required before non-formulary drugs may be ordered and/or dispensed. * CLSI guidelines does not recommend testing of cephalosporins. This interpretation is deduced from Beta-lactam/penicillin results. Cult, Anaerobic No growth in 5 days. Performed By: #### M100.1500 #### [facility] [address] [facility] [place], [address] Observed: 05/25/2018 Status: F Source: [place]AT CULTURE, DEEP WOUND 12:00 AM [facility] REPOSITORY Order Date: 02/13/17 Comments: POST LAVAGE BONE- RIGHT 1ST METATARSAL Gram Stain Gram Stain No organisms seen No cells seen Wound Culture No growth aerobically. Cult, Anaerobic No growth in 5 days. Performed By: #### M100.1500 #### [facility] [address] [facility] [place], [address] Observed: 05/25/2018 Status: F Source: PATITO CULTURE, FUNGUS W/ 12:00 AM [facility] [id number] REPOSITORY Comments: POST LAVAGE BONE- RIGHT 1ST METATARSAL Is this test to exclude patient from TB Isolation? Breonna [id number] TESTING PERFORMED AT [facility]. ORIGINAL REPORT ON FILE IN LAB CONTAINS ADDITIONAL TEST SITE INFORMATION. CUF No yeast or mold isolated after [address] TESTING PERFORMED AT [facility]. ORIGINAL REPORT ON FILE IN LAB CONTAINS ADDITIONAL TEST SITE INFORMATION. Fungus Stain No yeast or mold observed. Performed By: #### M600.1900 #### [facility] [address] [place], [address] Observed: 05/25/2018 Status: F Source: MICHAEL VAZQUEZ W/ 12:00 [facility] [id number] REPOSITORY Comments: PRELAVAGE TISSUE-RIGHT 1ST METATARSAL Is this test to exclude patient from TB Isolation? N Hugh,[id number] TESTING PERFORMED AT [facility]. ORIGINAL REPORT ON FILE IN LAB CONTAINS ADDITIONAL TEST SITE INFORMATION. CUF No yeast or mold isolated after [address] TESTING PERFORMED AT [facility]. ORIGINAL REPORT ON FILE IN LAB CONTAINS ADDITIONAL TEST SITE INFORMATION. Fungus Stain No yeast or mold observed. Performed By: #### M600.1900 #### [facility] [address] [place], [address] Observed: 05/25/2018 Status: F Source: MICHAEL VAZQUEZ W 12:00 [facility] [id number] REPOSITORY Comments: PRELAVAGE BONE-RIGHT 1ST METATARSAL Is this test to exclude patient from TB Isolation? N Cu,[id number] TESTING PERFORMED AT [facility]. ORIGINAL REPORT ON FILE IN LAB CONTAINS ADDITIONAL TEST SITE INFORMATION. CUF No yeast or mold isolated after [address] TESTING PERFORMED AT [facility]. ORIGINAL REPORT ON FILE IN LAB CONTAINS ADDITIONAL TEST SITE INFORMATION. Fungus Stain No yeast or mold observed. Performed By: #### M600.1900 #### [facility] [address] [place], [address] BEDSIDE GLUCOSE Collected: 05/24/2018 Status: F Source: PATITO 10:54 PM [facility] REPOSITORY TYPE CODE TESTS RESULT OUT OF REFERENCE UNITS RANGE LAB L501.080 70-110 mg/dL High BEDSIDE GLU 227 Result Comment: MANAGEMENT OF PATIENT CARE PER NURSING PROTOCOL Performed By: #### L501.080 #### [facility] Point of Care [address] [place] [address] BEDSIDE GLUCOSE Collected: 05/24/2018 Status: F Source: PATITO 4:27 PM [facility] REPOSITORY TYPE CODE TESTS RESULT OUT OF REFERENCE UNITS RANGE LAB L501.080 70-110 mg/dL High BEDSIDE GLU 196 Result Comment: MANAGEMENT OF PATIENT CARE PER NURSING PROTOCOL Performed By: #### L501.080 #### [facility] Point of Care [address] [place] [address] BEDSIDE GLUCOSE Collected: 05/24/2018 Status: F Source: PATITO 11:30 AM [facility] REPOSITORY TYPE CODE TESTS RESULT OUT OF REFERENCE UNITS RANGE LAB L501.080 70-110 mg/dL High BEDSIDE GLU 209 Result Comment: MANAGEMENT OF PATIENT CARE PER NURSING PROTOCOL Performed By: #### L501.080 #### [facility] Point of Care [address] [place] [address] PROTHROMBIN TIME W/INR Collected: 05/24/2018 Status: F Source: PATITO 8:15 AM [facility] REPOSITORY TYPE CODE TESTS RESULT OUT OF RANGE REFERENCE UNITS LAB L300.4150 11.7-14.9 SECONDS High PROTIME 22.3 LAB L300.4200 Normal INR 2.0 Performed By: #### L300.3900 #### [facility] [address] [place], [address] BASIC METABOLIC Collected: 05/24/2018 Status: F Source: PATITO PROFILE (BMP) 8:15 AM [facility] REPOSITORY TYPE CODE TESTS RESULT OUT [...] GAP 10 Performed By: #### L500.2500 #### [facility] [address] [place], [address] CBC W/DIFF, AUTOMATED Collected: 05/24/2018 Status: F Source: [place] 8:00 AM [facility] REPOSITORY TYPE CODE TESTS RESULT OUT [...] Lymph 1.61 Performed By: #### L100.0100 #### [facility] [address] [place], [address] BEDSIDE GLUCOSE Collected: 05/24/2018 Status: F Source: [place] 7:32 AM [facility] REPOSITORY TYPE CODE TESTS RESULT OUT OF REFERENCE UNITS RANGE LAB L501.080 70-110 mg/dL High BEDSIDE GLU 156 Result Comment: MANAGEMENT OF PATIENT CARE PER NURSING PROTOCOL Performed By: #### L501.080 #### [facility] Point of Care [address] [place] [address] LOWER EXT ARTERIAL Observed: 05/24/2018 Status: F Source: [place] STUDY 5:51 AM [facility] REPOSITORY [facility] Cardiovascular Services [address] [place] [address] 05/24/18 0549 MR#: [id number] Acct: [id number] Name: RICHARD ROY Rep #: [id number] : 1945 72 From: Smith Roberto MD Attending Dr: Landen Blanco MD Status: ADM IN Ordering Dr: [...] MD Date Dictated: 05/24/1849 Date Transcribed: 05/24/18548 Automobile Dealer: HOA Signed BEDSIDE GLUCOSE Collected: 05/23/2018 Status: F Source: PATITO 10:50 PM [facility] REPOSITORY TYPE CODE TESTS RESULT OUT OF REFERENCE UNITS RANGE LAB L501.080 70-110 mg/dL High BEDSIDE GLU 221 Result Comment: MANAGEMENT OF PATIENT CARE PER NURSING PROTOCOL Performed By: #### L501.080 #### [facility] Point of Care [address] [facility]. [place], [place] [address] BEDSIDE GLUCOSE Collected: 05/23/2018 Status: F Source: PATITO 4:11 PM [facility] REPOSITORY TYPE CODE TESTS RESULT OUT OF REFERENCE UNITS RANGE LAB L501.080 70-110 mg/dL High BEDSIDE GLU 218 Result Comment: MANAGEMENT OF PATIENT CARE PER NURSING PROTOCOL Performed By: #### L501.080 #### [facility] Point of Care [address] [place], [place] [address] Observed: 05/23/2018 Status: F Source: [place] CULTURE, BLOOD (WB) 1:00 PM [facility] REPOSITORY Has pt arrived? Y BC No growth in 5 days. Performed By: #### M200.1000 #### [facility] [address] [place], [address] Observed: 05/23/2018 Status: F Source: PATITO CULTURE, BLOOD (WB) 12:45 PM [facility] REPOSITORY Has pt arrived? Y BC No growth in 5 days. Performed By: #### M200.1000 #### [facility] [address] [place], [address] CONSULTATION Observed: 05/23/2018 Status: F Source: PATITO 12:13 PM [facility] REPOSITORY [facility] Medical Records Department [address] [place] [address] Consultation 05/23/18 1208 MR#: [id number] Acct: [id number] Name: RICHARD ROY Rep #: [id number] : 1945 72 From: Smith Ndiaye MD PCP: Dmitry Roberto III, MD Status: ADM IN Y Location: RI3 [id number] Problem List (1) Osteomyelitis Status: Chronic Qualifiers: [...] 05/23/2018 Status: F Source: PATITO 11:10 AM [facility] REPOSITORY TYPE CODE TESTS RESULT OUT OF REFERENCE UNITS RANGE LAB L501.080 70-110 mg/dL High BEDSIDE GLU 179 Result Comment: MANAGEMENT OF PATIENT CARE PER NURSING PROTOCOL Performed By: #### L501.080 #### [facility] Point [facility] [address] [facility] [place], [place] [address] BEDSIDE GLUCOSE Collected: 05/23/2018 Status: F Source: PATITO 6:42 AM [facility] REPOSITORY TYPE CODE TESTS RESULT OUT OF REFERENCE UNITS RANGE LAB L501.080 70-110 mg/dL High BEDSIDE GLU 166 Result Comment: MANAGEMENT OF PATIENT CARE PER NURSING PROTOCOL Performed By: #### L501.080 #### [facility] Point of Care [address] [facility] [place] [address] CBC W/DIFF, AUTOMATED Collected: 05/23/2018 Status: F Source: PATITO 6:36 AM [facility] REPOSITORY TYPE CODE TESTS RESULT OUT [...] Lymph 1.83 Performed By: #### L100.0100 #### [facility] [address] [facility] [place], [place], [address] BASIC METABOLIC Collected: 05/23/2018 Status: F Source: [place]AT PROFILE ([facility]) 6:36 AM [facility] REPOSITORY TYPE CODE TESTS RESULT OUT [...] GAP 11 Performed By: #### L500.2500 #### [facility] [address] [facility] [place], [address] PROTHROMBIN TIME W/INR Collected: 05/23/2018 Status: F Source: PATITO 6:36 AM [facility] REPOSITORY TYPE CODE TESTS RESULT OUT OF RANGE REFERENCE UNITS LAB L300.4150 11.7-14.9 SECONDS High PROTIME 27.9 LAB L300.4200 Normal INR 2.6 Performed By: #### L300.3900 #### [facility] [address] [place], [address] HH, HEMOGLOBIN AND Collected: 05/22/2018 Status: F Source: [place] HEMATOCRIT 10:10 PM [facility] REPOSITORY TYPE CODE TESTS RESULT OUT OF RANGE REFERENCE UNITS LAB L100.1300 13.0-16.5 g/dl Low HGB 10.8 LAB L100.1400 40-54 % Low HCT 34.2 Performed By: #### L100.0600 #### [facility] [address] [facility] [place], [address] BEDSIDE GLUCOSE Collected: 05/22/2018 Status: F Source: PATITO 9:57 PM [facility] REPOSITORY TYPE CODE TESTS RESULT OUT OF REFERENCE UNITS RANGE LAB L501.080 70-110 mg/dL High BEDSIDE GLU 134 Result Comment: MANAGEMENT OF PATIENT CARE PER NURSING PROTOCOL Performed By: #### L501.080 #### [facility] Point of Care [address] [place] [address] CONSULTATION Observed: 05/22/2018 Status: F Source: SALT [place]AT 6:23 PM [facility] REPOSITORY [facility] Medical Records Department [address] [place] [address] Consultation 05/22/18 1808 MR#: [id number] Acct: [id number] Name: RICHARD ROY Rep #: [id number] : 1945 72 From: Arminda Obregon DPM PCP: Dmitry Roberto III, MD Status: ADM IN Y Location: [facility] [id number] Reason for Consult Date of Consultation: 05/22/18 [...] less. will discuss with hospitalist tomorrow. 05/22/18 8843 <Electronically signed by Arminda Obregon DPM> Date Arminda Obregon DPM Cosigner Signature (if applicable): Date CC: WINSOME Obregon; Landen Blanco MD; Dmitry Roberto III, MD Signed URINALYSIS, COMPLETE Collected: 05/22/2018 Status: F Source: [place] 5:59 PM [facility] REPOSITORY Order Comment: How was Urine [...] URINE SEEN Performed By: #### L400.0001 #### [facility] [address] [place], [address] BEDSIDE GLUCOSE Collected: 05/22/2018 Status: F Source: [place] 4:35 PM [facility] REPOSITORY TYPE CODE TESTS RESULT OUT OF RANGE REFERENCE UNITS LAB L501.080 70-110 mg/dL Normal BEDSIDE GLU 104 Result Comment: MANAGEMENT OF PATIENT CARE PER NURSING PROTOCOL Performed By: #### L501.080 #### [facility] Point of Care [address] [place] [address] HISTORY AND PHYSICAL Observed: 05/22/2018 Status: F Source: [place] EXAM 3:13 PM [facility] REPOSITORY [facility] Medical Records Department [address] [place] [address] History and Physical 05/22/18 1329 MR#: [id number] Acct: [id number] Name: RICHARD ROY Rep #: [id number] : 1945 72 From: Landen Blanco MD PCP: Dmitry Roberto III, MD Status: ADM IN Y Location: MS3 [id number] Problem List (1) Wound dehiscence Status: Acute [...] measures Code Visit Inpatient E AND M: 52886 Init Hosp L3 05/22/18 1513 <Electronically signed by Landen Blanco MD> Date Landen Blanco MD Cosign Signature: Date (if applicable) CC: Landen Blanco MD; Dmitry Roberto III, MD Signed LOWER EXT/NO JT/W/O Observed: 05/22/2018 Status: F Source: [place] 2:40 PM [facility] REPOSITORY [facility] Imaging Services [address] [place] [address] Lower Ext/No Jt/w/o MR#: [id number] Acct: [id number] Name: RICHARD ROY #: [id number] : 1945 M 72 From: Mila Russell MD PCP: Dmitry Roberto III, MD Status: ADM IN Study: Lower Ext/No Jt/w/o Date of Exam: 05/22/18 Exam# [id number] Ordering Dr: Landen Blanco MD STUDY: MRI [...] Landen Blanco MD; Dmitry Roberto III, MD Automobile Dealer: Signed Nelson Mcdowell [employer] Collected: 05/22/2018 Status: F Source: [place] DNA BY PCR 2:15 PM [facility] REPOSITORY TYPE CODE TESTS RESULT OUT OF RANGE REFERENCE UNITS LAB L8200.1100 Negative Normal MRSA Negative RESULT Performed By: #### L8200.1000 #### [facility] [place], [address] CBC W/DIFF, AUTOMATED Collected: 05/22/2018 Status: F Source: [place] 1:51 PM [facility] REPOSITORY TYPE CODE TESTS RESULT OUT [...] Lymph 1.38 Performed By: #### L100.0100 #### [facility] [address] [place], [place], [address] PROTHROMBIN TIME W/INR Collected: 05/22/2018 Status: F Source: [place] 1:51 PM [facility] REPOSITORY TYPE CODE TESTS RESULT OUT OF RANGE REFERENCE UNITS LAB L300.4150 11.7-14.9 SECONDS High PROTIME 31.9 LAB L300.4200 Normal INR 3.1 Performed By: #### L300.3900 #### [facility] [address] [place], [address] COMPREHENSIVE METABOLIC Collected: 05/22/2018 Status: F [facility] RE[facility] TYPE CODE TESTS RESULT OUT [...] 7 Performed By: #### L500.4050, L501.5200 #### [facility] [address] [place], [address] MAGNESIUM Collected: 05/22/2018 Status: F Source: [place] 1:51 PM [facility] REPOSITORY TYPE CODE TESTS RESULT OUT OF RANGE REFERENCE UNITS LAB L501.5200 1.6-2.6 mg/dL Normal MG 1.6 Performed By: #### L500.4050, L501.5200 #### [facility] [address] [place], [address] PROGRESS Observed: 05/22/2018 Status: COMPLETED Source: [place] 12:39 PM [facility] REPOSITORY HNO ID: [id number] Author: Arminda Obregon Service: (none) Author Type: [...] disease, with long-term current use of insulin ([facility]) 06/20/2016 - Type II or unspecified type [...] by mouth once daily. blood sugar diagnostic (EdifilmUCH ULTRA TEST) test strip Test blood sugar(s) [...] DPM PROGRESS Observed: 05/22/2018 Status: COMPLETED Source: [place] 9:00 AM [facility] REPOSITORY HNO ID: [id number] Author: Sweta Osborne MA Service: (none) Author [...] MA CNOV Observed: 05/22/2018 Status: COMPLETED Source: [place] 8:55 AM [facility] REPOSITORY Office Visit (PODIWS) RICHARD ROY ([id number]) 1945 M Date Time Provider Department 05/22/18 [...] disease, with long-term current use of insulin ([facility]) 06/20/2016 - Type II or unspecified type [...] by mouth once daily. blood sugar diagnostic (Insyde Software ULTRA TEST) test strip Test blood sugar(s) [...] Arminda Obregon DPM Referring Provider: ARMINDA OBREGON [[id number]] Allergies As of Date: 05/22/2018 (No Known Allergies) Date Reviewed: 05/22/2018 Reviewed by: Sweta Osborne MA - Fully Assessed Reason for Visit: Surgical Followup [104] Primary Visit Diagnosis:Wound dehiscence [T81.30XA] Other Visit Diagnoses:Diabetic ulcer of toe of right foot associated with type 2 diabetes mellitus, with fat layer exposed (HCC) [E11.621, L97.512] Post-operative state [Z98.890] Order(s):XR FOOT GENERAL 3V AP/LAT/OBL RT [[id number]] Order #: [id number] FUTURE CBC [SQCBC] Order #: [id number] FUTURE SED RATE WESTERGREN [SQWSR] Order #: [id number] FUTURE C-REACTIVE PROTEIN (CRP) [SQCRP] Order #: [id number] FUTURE Prescriptions as of 05/22/2018 Sig: PEN [...] 05/22/18 PROGRESS Observed: 05/13/2018 Status: COMPLETED Source: [place] 9:48 PM [facility] REPOSITORY O ID: [id number] Author: Arminda Obregon Service: (none) Author Type: [...] 09/25/2013 - Diabetes mellitus with neurological manifestation ([facility]) 09/08/2010 - Diverticulosis of colon (without mention of hemorrhage) - Encounter for monitoring Coumadin therapy 09/23/2013 INR goal 2.5-3.5 - Essential hypertension, benign 10/28/2012 - Hyperlipidemia LDL goal < 100 04/01/2012 - Pulmonary embolus, right ([facility]) 09/25/2013 - Status post aortic valve repair 2004 - Thoracic aneurysm without mention of rupture - Type 2 diabetes mellitus with stage 3 chronic kidney disease, with long-term current use of insulin ([facility]) 06/20/2016 - Type II or unspecified type [...] by mouth once daily. blood sugar diagnostic (EdifilmUCH ULTRA TEST) test strip Test blood sugar(s) [...] DPM PROGRESS Observed: 05/13/2018 Status: COMPLETED Source: [place] 3:03 PM [facility] REPOSITORY HNO ID: [id number] Author: Dmitry Roberto III Service: (none) Author Type: Physician Type: Progress Notes Filed: 05/13/2018 6:37 PM Note Text: SUBJECTIVE: This is a 72 year old male that is here today for 1. f/u of parenteral tx of osteomyelitis. He had a sore on his right great toe resulting in amputation of the toe. He did see his textile stylist Dr. Obregon this AM. In half-way for 6 wks. Finished all antibiotics on 05/07. Home from [place] on 05/08. Doing well. Records from infectious [...] by mouth once daily. blood sugar diagnostic (EdifilmUCH ULTRA TEST) test strip Test blood sugar(s) [...] MD CNOV Observed: 05/13/2018 Status: COMPLETED Source: [place] 3:00 PM [facility] REPOSITORY Office Visit (FAMPWS) RICHARD ROY ([id number]) 1945 M Date Time Provider Department 05/13/18 [...] of the toe. He did see his textile stylist Dr. Obregon this AM. In half-way for 6 wks. Finished all antibiotics on 05/07. Home from [place] on 05/08. Doing well. Records from infectious [...] 09/25/2013 - Diabetes mellitus with neurological manifestation ([facility]) 09/08/2010 - Diverticulosis of colon (without mention of hemorrhage) - Encounter for monitoring Coumadin therapy 09/23/2013 INR goal 2.5-3.5 - Essential hypertension, benign 10/28/2012 - Hyperlipidemia LDL goal < 100 04/01/2012 - Pulmonary embolus, right ([facility]) 09/25/2013 - Status post aortic valve repair 2004 - Thoracic aneurysm without mention of rupture - Type 2 diabetes mellitus with stage 3 chronic kidney disease, with long-term current use of insulin ([facility]) 06/20/2016 - Type II or unspecified type [...] by mouth once daily. blood sugar diagnostic (Insyde Software ULTRA TEST) test strip Test blood sugar(s) [...] Allergies) Date Reviewed: 05/13/2018 Reviewed by: Annette ([facility]) JENNIFER Garnett - Fully Assessed Reason for Visit: [facility] follow up [Other] Cmt: big [...] ALBUMIN/CREAT RATIO RND UR [SQUACR] Order #: [id number] FUTURE HGB A1C [NNSWA6N] Order #: [id number] FUTURE LIPID PANEL BASIC [SQLIPB] Order #: [id number] FUTURE COMP METABOLIC PANEL [SQCMP] Order #: [id number] FUTURE Prescriptions as of 05/13/2018 Sig: INSULIN [...] 05/13/18 CBC Collected: 05/13/2018 Status: F Source: [place] 11:24 AM [facility] REPOSITORY TYPE CODE TESTS RESULT OUT OF [...] Performed By: #### CBC, WSR, CRP #### [facility] True Office [address], [place] [address] SED RATE WESTERGREN Collected: 05/13/2018 Status: F Source: [place] 11:24 AM [facility] REPOSITORY TYPE CODE TESTS RESULT OUT OF REFERENCE UNITS RANGE LAB WSR 0-15 mm/hr Sed Rate High Westergren 21 Performed By: #### CBC, WSR, CRP #### [facility] True Office [address] [place], [place] [address] C-REACTIVE PROTEIN Collected: 05/13/2018 Status: F Source: [place] 11:24 AM [facility] REPOSITORY TYPE CODE TESTS RESULT OUT OF REFERENCE UNITS RANGE LAB CRP <0.9 mg/dL C-Reactive 0.2 Protein Performed By: #### CBC, WSR, CRP #### [facility] [address], [place] [address] CNOV Observed: 05/13/2018 Status: COMPLETED Source: [place] 10:25 AM [facility] REPOSITORY Office Visit (PODIWS) RICHARD ROY ([id number]) 1945 M Date Time Provider Department 05/13/18 [...] disease, with long-term current use of insulin ([facility]) 06/20/2016 - Type II or unspecified type [...] by mouth once daily. blood sugar diagnostic (Insyde Software ULTRA TEST) test strip Test blood sugar(s) [...] Arminda Obregon DPM Referring Provider: ARMINDA OBREGON [[id number]] Allergies As of Date: 05/13/2018 (No Known Allergies) Date Reviewed: 05/13/2018 Reviewed by: Annette ([facility]) JENNIFER Garnett - Fully Assessed Reason for Visit: Follow Up [171] Primary Visit Diagnosis:Wound dehiscence [T81.30XA] Other Visit Diagnosis:Post-operative state [Z98.890] Order(s):SED RATE WESTERGREN [SQWSR] Order #: [id number] FUTURE C-REACTIVE PROTEIN (CRP) [SQCRP] Order #: [id number] FUTURE CBC [SQCBC] Order #: [id number] FUTURE Prescriptions as of 05/13/2018 Sig: INSULIN [...] 05/13/18 PROGRESS Observed: 05/13/2018 Status: COMPLETED Source: [place] 10:19 AM [facility] REPOSITORY O ID: [id number] Author: Blaire De La Torre RN Service: [...] foot. PROGRESS Observed: 05/13/2018 Status: COMPLETED Source: [place] 9:56 AM [facility] REPOSITORY HNO ID: [id number] Author: Azucena () Coty Inman Service: (none) Author Type: Gold Plater Type: Progress Notes Filed: 05/13/2018 9:56 AM [...] 3V AP/LAT/OBL Observed: 05/13/2018 Status: F Source: [facility] 9:55 AM [facility] REPOSITORY * * *Final Report* * * [...] WITH INCREASED SOFT TISSUE SWELLING OTHERWISE UNCHANGED. Automobile Dealer: BLAKE Transcribe Date/Time: May 13 2018 5:37P Dictated by : JOJO HOWARD MD This examination was interpreted and the report reviewed and electronically signed by: JOJO HOWARD MD on May 13 2018 5:39PM EST [id number] BASIC METABOLIC PANL Collected: 05/12/2018 Status: F Source: [place] 8:58 AM [facility] REPOSITORY TYPE CODE TESTS RESULT OUT OF [...] GFR. PROTIME Collected: 05/12/2018 Status: F Source: [place] 8:57 AM [facility] REPOSITORY TYPE CODE TESTS RESULT OUT OF RANGE REFERENCE UNITS LAB PSEC 9.7-13.0 sec PT Sec 11.7 LAB INR 0.9-1.3 PT INR 1.1 Result Comment: Vitamin K Antagonist (VKA) Therapeutic Range: INR 2 to 3 (Target INR of 2.5) Note: For patients treated with VKA drugs, such as warfarin, the [employer] 2012 Guideline recommends [...] Chest 2012, 141:7S-47S [place] RA, et al. [facility] 2017, 70: 252-289 Performed By: #### PT #### [facility] [address], [place] [address] HEMOGLOBIN A1C Collected: 05/12/2018 Status: F Source: [place] 8:57 AM [facility] REPOSITORY TYPE CODE TESTS RESULT OUT OF REFERENCE UNITS RANGE LAB HGBA1C 4.3-5.6 % High Hemoglobin A1c 6.5 LAB HBA0 mg/dL Est. Average Glucose 140 Result Comment: eAG: (Estimated average glucose) is a calculated value from HgbA1c and is marketing development representative of the average blood glucose level in the last 2-3 month period. Performed By: #### HBA1C #### [facility] [address], [place] [address] ERYTHROCYTE SED RATE Collected: 05/07/2018 Status: F Source: [place] 6:05 AM [facility] REPOSITORY Order Comment: ROOM 305 TYPE CODE TESTS RESULT OUT OF RANGE REFERENCE UNITS LAB L102.0000 0-20 mm/hr Normal SED RATE 17 Performed By: #### L101.9900, L100.0100 #### [facility] [address] [place], [address] CBC W/DIFF, AUTOMATED Collected: 05/07/2018 Status: F Source: [place] 6:05 AM [facility] REPOSITORY Order Comment: ROOM 305 TYPE [...] 1.86 Performed By: #### L101.9900, L100.0100 #### [facility] [address] [place], [place], [address] BASIC METABOLIC Collected: 05/07/2018 Status: F Source: [place] PROFILE (BMP) 6:05 AM [facility] REPOSITORY Order Comment: ROOM 305 TYPE [...] GAP 8 Performed By: #### L500.2500 #### [facility] [address] [place], [place], [address] PROGRESS Observed: 05/06/2018 Status: COMPLETED Source: [place] 1:29 PM [facility] REPOSITORY HNO ID: [id number] Author: Blaire De La Torre RN Service: (none) Author Type: (none) Type: Progress Notes Filed: 05/06/2018 1:30 PM Note Text: Betadine applied to R surgical site. Aquacel applied overtop betadine. Secured with a 4x4, yu, kerlix and BERNIE. PROGRESS Observed: 05/06/2018 Status: COMPLETED Source: [place] 11:46 AM [facility] REPOSITORY HNO ID: [id number] Author: Blaire De La Torre RN Service: [...] RN PROGRESS Observed: 05/06/2018 Status: COMPLETED Source: [place] 11:39 AM [facility] REPOSITORY HNO ID: [id number] Author: Arminda Obregon Service: (none) Author Type: [...] disease, with long-term current use of insulin ([facility]) 06/20/2016 - Type II or unspecified type [...] Laterality Date - COLONOSCOP W/ OR W/O [facility] SPEC 03/12/11 - DEBRIDE SKIN AND SUBQ [...] DPM PROGRESS Observed: 05/06/2018 Status: COMPLETED Source: [place] 10:46 AM [facility] REPOSITORY HNO ID: [id number] Author: Crys Cabrera Ma Service: (none) Author [...] Ma CNOV Observed: 05/06/2018 Status: COMPLETED Source: [place] 10:40 AM [facility] REPOSITORY Office Visit (PODIWS) RICHARD ROY ([id number]) 1945 M Date Time Provider Department 05/06/18 [...] disease, with long-term current use of insulin ([facility]) 06/20/2016 - Type II or unspecified type [...] by mouth once daily. blood sugar diagnostic (myeasydocsTOUCH ULTRA TEST) test strip Test blood sugar(s) [...] Laterality Date - COLONOSCOP W/ OR W/O [facility] SPEC 03/12/11 - DEBRIDE SKIN AND SUBQ [...] kerlix and BERNIE. Referring Provider: ARMINDA OBREGON [[id number]] Allergies As of Date: 05/06/2018 (No Known Allergies) Date Reviewed: 05/06/2018 Reviewed by: Crys Cabrera Ma - Fully Assessed Reason for Visit: Surgical Followup [104] Primary Visit Diagnosis:Wound dehiscence [T81.30XA] Other Visit Diagnosis:Post-operative state [Z98.890] Order(s):XR FOOT GENERAL 3V AP/LAT/OBL RT [[id number]] Order #: [id number] FUTURE Prescriptions as of 05/06/2018 Sig: MELATONIN [...] TIME W/INR Collected: 05/05/2018 Status: F Source: [place] 5:35 AM [facility] REPOSITORY TYPE CODE TESTS RESULT OUT OF RANGE REFERENCE UNITS LAB L300.4150 11.7-14.9 SECONDS High PROTIME 16.4 LAB L300.4200 Normal INR 1.3 Performed By: #### L300.3900 #### [facility] [address] [place], [address] CBC W/DIFF, AUTOMATED Collected: 04/30/2018 Status: F Source: [place] 7:05 [facility] REPOSITORY Order Comment: 305 TYPE CODE TESTS [...] 1.73 Performed By: #### L100.0100, L101.9900 #### [facility] [address] [place], [address] ERYTHROCYTE SED RATE Collected: 04/30/2018 Status: F Source: [place] 7:05 [facility] REPOSITORY Order Comment: 305 TYPE CODE TESTS RESULT OUT OF RANGE REFERENCE UNITS LAB L102.0000 0-20 mm/hr Normal SED RATE 16 Performed By: #### L100.0100, L101.9900 #### [facility] [address] [place], [place], [address] BASIC METABOLIC Collected: 04/30/2018 Status: F Source: [place] PROFILE (BMP) 7:05 AM [facility] REPOSITORY Order Comment: 305 TYPE CODE [...] GAP 11 Performed By: #### L500.2500 #### [facility] [address] [place], [address] PROTHROMBIN TIME W/INR Collected: 04/30/2018 Status: F Source: [place] 7:05 AM [facility] REPOSITORY Order Comment: 305 TYPE CODE TESTS RESULT OUT OF RANGE REFERENCE UNITS LAB L300.4150 11.7-14.9 SECONDS High PROTIME 16.4 LAB L300.4200 Normal INR 1.3 Performed By: #### L300.3900 #### [facility] [address] [place], [address] PROGRESS Observed: 04/29/2018 Status: COMPLETED Source: [place] 9:57 PM [facility] REPOSITORY HNO ID: [id number] Author: Arminda Sabas Service: (none) Author Type: [...] 09/25/2013 - Diabetes mellitus with neurological manifestation ([facility]) 09/08/2010 - Diverticulosis of colon (without mention [...] disease, with long-term current use of insulin ([facility]) 06/20/2016 - Type II or unspecified type [...] by mouth once daily. blood sugar diagnostic (myeasydocsTOUCH ULTRA TEST) test strip Test blood sugar(s) [...] Laterality Date - COLONOSCOP W/ OR W/O [facility] SPEC 03/12/11 - DEBRIDE SKIN AND SUBQ [...] DPM PROGRESS Observed: 04/29/2018 Status: COMPLETED Source: [place] 4:36 PM [facility] REPOSITORY HNO ID: [id number] Author: Blaire De La Torre RN Service: (none) Author Type: (none) Type: Progress Notes Filed: 04/29/2018 10:05 PM Note Text: Sandra applied to R surgical site. Covered with 4x4 and yu. BERNIE applied to RLE toes to knee for compression. Amerigel and band-aid applied to wound of L plantar foot. CNOV Observed: 04/29/2018 Status: COMPLETED Source: [place] 3:55 PM [facility] REPOSITORY Office Visit (PODIWS) RICHARD ROY ([id number]) 1945 M Date Time Provider Department 04/29/18 [...] disease, with long-term current use of insulin ([facility]) 06/20/2016 - Type II or unspecified type [...] Laterality Date - COLONOSCOP W/ OR W/O [facility] SPEC 03/12/11 - DEBRIDE SKIN AND SUBQ [...] Arminda Obregon DPM Referring Provider: ARMINDA OBREGON [[id number]] Allergies As of Date: 04/29/2018 (No Known [...] 04/29/18 PROGRESS Observed: 04/29/2018 Status: COMPLETED Source: [place] 3:49 PM [facility] REPOSITORY HNO ID: [id number] Author: Crys Cabrera Ma Service: (none) Author [...] TIME W/INR Collected: 04/23/2018 Status: F Source: [place] 6:55 AM [facility] REPOSITORY Order Comment: 305 TYPE CODE TESTS RESULT OUT OF RANGE REFERENCE UNITS LAB L300.4150 11.7-14.9 SECONDS High PROTIME 16.6 LAB L300.4200 Normal INR 1.3 Performed By: #### L300.3900 #### [facility] [place], [address] BASIC METABOLIC Collected: 04/23/2018 Status: F Source: [place] PROFILE (BMP) 6:55 AM [facility] REPOSITORY Order Comment: 305 TYPE CODE [...] GAP 6 Performed By: #### L500.2500 #### [facility] [address] [place], [place], [address] ERYTHROCYTE SED RATE Collected: 04/23/2018 Status: F Source: [place] 6:55 AM [facility] REPOSITORY Order Comment: 305 TYPE CODE TESTS RESULT OUT OF RANGE REFERENCE UNITS LAB L102.0000 0-20 mm/hr Normal SED RATE 15 Performed By: #### L101.9900, L100.0100 #### [facility] [address] [place], [address] CBC W/DIFF, AUTOMATED Collected: 04/23/2018 Status: F Source: [place] 6:55 AM [facility] REPOSITORY Order Comment: 305 TYPE CODE [...] 1.86 Performed By: #### L101.9900, L100.0100 #### [facility] [address] [address] [place], [address] PROGRESS Observed: 04/22/2018 Status: COMPLETED Source: [place] 11:45 AM [facility] REPOSITORY HNO ID: [id number] Author: Sweta Osborne MA Service: (none) Author Type: (none) Type: Progress Notes Filed: 04/22/2018 11:48 AM Note Text: Per Dr. Obregon, wound irrigated with normal saline betadine, applied Synchris AG R surgical site. Covered with 4X4, forrest nicholasx. PROGRESS Observed: 04/22/2018 Status: COMPLETED Source: [place] 11:21 AM [facility] RE[facility]ITORY HNO ID: [id number] Author: Arminda Obregon Service: (none) Author Type: [...] disease, with long-term current use of insulin ([facility]) 06/20/2016 - Type II or unspecified type [...] by mouth once daily. blood sugar diagnostic (myeasydocsTOUCH ULTRA TEST) test strip Test blood sugar(s) [...] Laterality Date - COLONOSCOP W/ OR W/O [facility] SPEC 03/12/11 - DEBRIDE SKIN AND SUBQ [...] WINSOME Young Observed: 04/22/2018 Status: COMPLETED Source: [place] 10:55 AM [facility] REPOSITORY Office Visit (PODIWS) RICHARD ROY ([id number]) 1945 M Date Time Provider Department 04/22/18 [...] by mouth once daily. blood sugar diagnostic (Insyde Software ULTRA TEST) test strip Test blood sugar(s) [...] Laterality Date - COLONOSCOP W/ OR W/O [facility] SPEC 03/12/11 - DEBRIDE SKIN AND SUBQ [...] 4X4, yu, kerlix. Referring Provider: ARMINDA OBREGON [[id number]] Allergies As of Date: 04/22/2018 (No Known [...] 04/22/18 PROGRESS Observed: 04/22/2018 Status: COMPLETED Source: [place] 10:51 AM [facility] REPOSITORY [facility] ID: [id number] Author: Sweta Osborne MA Service: (none) Author [...] restroom. PROGRESS Observed: 04/16/2018 Status: COMPLETED Source: [place] 7:16 AM [facility] REPOSITORY HNO ID: [id number] Author: Arminda Obregon Service: (none) Author Type: [...] 04/16/2018 Status: F Source: [place] 6:50 AM [facility] REPOSITORY Order Comment: 305 TYPE CODE TESTS RESULT OUT OF RANGE REFERENCE UNITS LAB L300.4150 11.7-14.9 SECONDS High PROTIME 15.3 LAB L300.4200 Normal INR 1.2 Performed By: #### L300.3900 #### [facility] [address] [place], [place], [address] CBC W/DIFF, AUTOMATED Collected: 04/16/2018 Status: F Source: [place] 6:50 AM [facility] REPOSITORY Order Comment: 305 TYPE CODE [...] 1.85 Performed By: #### L100.0100, L101.9900 #### [facility] [address] [place], [place], [address] ERYTHROCYTE SED RATE Collected: 04/16/2018 Status: F Source: [place] 6:50 AM [facility] REPOSITORY Order Comment: 305 TYPE CODE TESTS RESULT OUT OF RANGE REFERENCE UNITS LAB L102.0000 0-20 mm/hr High SED RATE 25 Performed By: #### L100.0100, L101.9900 #### [facility] [address] [place], [place], [address] BASIC METABOLIC Collected: 04/16/2018 Status: F Source: [place] PROFILE (BMP) 6:50 AM [facility] REPOSITORY Order Comment: 305 TYPE CODE [...] GAP 8 Performed By: #### L500.2500 #### [facility] [address] [place], [address] CNOV Observed: 04/15/2018 Status: COMPLETED Source: [place] 2:10 PM [facility] REPOSITORY Office Visit (PODIWS) RICHARD ROY ([id number]) 1945 M Date Time Provider Department 04/15/18 [...] WB. He has not been discharged from [facility]. Wound vac continued however not on patient, [...] Arminda Obregon DPM Referring Provider: ARMINDA OBREGON [[id number]] Allergies As of Date: 04/15/2018 (No Known [...] 04/16/18 PROGRESS Observed: 04/15/2018 Status: COMPLETED Source: [place] 2:02 PM [facility] REPOSITORY HNO ID: [id number] Author: Blaire De La Torre RN Service: [...] WB. He has not been discharged from [facility]. Wound vac continued however not on patient, he states it was acting up this morning and the nurses just said the heck with it since I have an appointment today. PROTHROMBIN TIME W/INR Collected: 04/14/2018 Status: F Source: [place] 5:10 AM [facility] REPOSITORY Order Comment: RM:305 TYPE CODE TESTS RESULT OUT OF RANGE REFERENCE UNITS LAB L300.4150 11.7-14.9 SECONDS Normal PROTIME 14.7 LAB L300.4200 Normal INR 1.2 Performed By: #### L300.3900 #### [facility] [address] [place], [address] PROGRESS Observed: 04/10/2018 Status: COMPLETED Source: [place] 4:42 PM [facility] REPOSITORY HNO ID: [id number] Author: Crys Cabrera Ma Service: (none) Author Type: (none) Type: Progress Notes Filed: 04/10/2018 4:43 PM Note Text: Applied wet to dry dressing to R post op wound. Crys Cabrera Ma XR FOOT 3V AP/LAT/OBL Observed: 04/10/2018 Status: F Source: [place] RT 10:31 AM [facility] REPOSITORY * * *Final Report* * * [...] seen. IMPRESSION: Satisfactory postsurgical appearance. Degenerative changes. Automobile Dealer: PSCB Transcribe Date/Time: Apr 11 2018 8:38A Dictated by : MELANIA LINK MD This examination was interpreted and the report reviewed and electronically signed by: MELANIA LINK MD on Apr 11 2018 8:40AM EST [id number] PROGRESS Observed: 04/10/2018 Status: COMPLETED Source: [place] 10:22 AM [facility] REPOSITORY HNO ID: [id number] Author: Yahaira Juan (Rt) Coty Badillo Service: (none) Author Type: Gold Plater Type: Progress Notes Filed: 04/10/2018 10:31 AM [...] AM PROGRESS Observed: 04/10/2018 Status: COMPLETED Source: [place] 9:42 AM [facility] REPOSITORY HNO ID: [id number] Author: Arminda Obregon Service: (none) Author Type: Physician Type: Progress Notes Filed: 04/10/2018 12:12 PM Note Text: Arminda Obregon DPM Department of Podiatry [address] [facility] [address] Dept: [phone] Dept DOS: 03/25/18 POD: 16 POV: 2 [...] WINSOME Young Observed: 04/10/2018 Status: COMPLETED Source: [place] 9:40 AM [facility] REPOSITORY Office Visit (PODIWS) RICHARD ROY ([id number]) 1945 M Date Time Provider Department 04/10/18 9:40 AM ARMINDA OBREGON During your visit today, we recorded the following information about you: Arminda Obregon DPM 04/10/2018 12:12 PM Signed Arminda Obregon DPM Department of Podiatry [address] [place] [address] Dept: [phone] Dept DOS: 03/25/18 POD: 16 POV: 2 [...] Crys Cabrera Ma Referring Provider: ARMINDA OBREGON [[id number]] Allergies As of Date: 04/10/2018 (No Known Allergies) Date Reviewed: 04/10/2018 Reviewed by: Blaire De La Torre RN - Fully Assessed Reason for Visit: Post Op [174] Primary Visit Diagnosis:Post-operative state [Z98.890] Other Visit Diagnosis:Wound dehiscence [T81.30XA] Order(s):XR FOOT GENERAL 3V AP/LAT/OBL RT [[id number]] Order #: [id number] FUTURE Prescriptions as of 04/10/2018 Sig: MELATONIN [...] F Source: [place] PROFILE (BMP) 6:40 AM [facility] REPOSITORY Order Comment: ROOM 305 TYPE [...] GAP 8 Performed By: #### L500.2500 #### [facility] [address] [place], [place], [address] ERYTHROCYTE SED RATE Collected: 04/09/2018 Status: F Source: [place] 6:40 AM [facility] REPOSITORY Order Comment: ROOM 305 TYPE CODE TESTS RESULT OUT OF RANGE REFERENCE UNITS LAB L102.0000 0-20 mm/hr High SED RATE 38 Performed By: #### L101.9900, L100.0100 #### [facility] [address] [place], [address] CBC W/DIFF, AUTOMATED Collected: 04/09/2018 Status: F Source: [place] 6:40 AM [facility] REPOSITORY Order Comment: ROOM 305 TYPE [...] 2.23 Performed By: #### L101.9900, L100.0100 #### [facility] [address] [place], [place], [address] PROTHROMBIN TIME W/INR Collected: 04/09/2018 Status: F Source: [place] 6:40 AM [facility] REPOSITORY Order Comment: ROOM 305 TYPE CODE TESTS RESULT OUT OF RANGE REFERENCE UNITS LAB L300.4150 11.7-14.9 SECONDS Normal PROTIME 14.4 LAB L300.4200 Normal INR 1.1 Performed By: #### L300.3900 #### [facility] [address] [place], [address] DISCHARGE SUMMARY Observed: 04/04/2018 Status: F Source: [place] 6:30 PM [facility] REPOSITORY [facility] Medical Records Department [address] [place] [address] Discharge Summary 04/04/18 1811 MR#: [id number] Acct: [id number] Name: RICHARD ROY Irene Rep #: [id number] : 1945 72 From: Gabriel Giraldo DO PCP: Dmitry Roberto III, MD Status: DIS IN Y Location: [facility] [id number] Discharge Date and Diagnosis Date of Admission: [...] was seen in the emergency room at [facility] with a chief complaint of pain in his right foot with redness. 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 Patient also [...] patient would benefit from short-term placement in longterm facility. On 04/01/18, patient was seen and examined felt to be in stable condition for transfer to longterm facility for continued rehab and IV antibiotic [...] in wound center in 3-4 weeks Disposition: Care Home facility Minutes spent on discharge:: 34 Patient Condition:: Stable Medical Necessity - Tobacco Use Smoking Status: Never smoker Meaningful Use Info Meaningful Use Diagnoses (Choose all that apply): None applicable Code Visit Inpatient E AND M: 27692 Disch Hosp 04/04/18 1830 <Electronically signed by Gabriel Giraldo DO> Date Gabriel Giraldo DO Cosignjanessa Signature (if applicable): Date CC: Dmitry Roberto III, MD; Gabriel Giraldo DO Signed CNOV Observed: 04/03/2018 Status: COMPLETED Source: [place] 8:40 AM [facility] RE[facility] Office Visit (PODIWS) RICHARD ROY ([id number]) 1945 M Date Time Provider Department 04/03/18 8:40 AM ARMINDA OBREGON PODIWS During your visit today, we recorded the following information about you: Arminda Obregon DPM 04/03/2018 9:01 AM Signed Arminda Obregon DPM Department of Podiatry [address] [facility] [address] Dept: [phone] Dept DOS: 03/25/18 POD: 9 POV: 1 [...] on inner dressing Reports that nursing at [facility] changed dressing yesterday morning. He is a [...] Arminda Obregon DPM Referring Provider: ARMINDA OBREGON [[id number]] Allergies As of Date: 04/03/2018 (No Known [...] 04/03/18 PROGRESS Observed: 04/03/2018 Status: COMPLETED Source: [place] 8:29 AM [facility] REPOSITORY [facility] ID: [id number] Author: Arminda Obregon Service: (none) Author Type: Physician Type: Progress Notes Filed: 04/03/2018 9:01 AM Note Text: Arminda Obregon DPM Department of Podiatry [address] [facility] [address] Dept: [phone] Dept DOS: 03/25/18 POD: 9 POV: 1 [...] on inner dressing Reports that nursing at [facility] changed dressing yesterday morning. He is a [...] (M86.9) Osteomyelitis of toe of right foot ([facility]) (primary encounter diagnosis) (E11.621, L97.519) Diabetic ulcer of toe of right foot associated with type 2 diabetes mellitus, unspecified ulcer stage ([facility]) (T81.30XA) Wound dehiscence Plan: Patient was examined [...] 04/02/2018 Status: F Source: [place] 4:05 PM [facility] REPOSITORY TYPE CODE TESTS RESULT OUT OF RANGE REFERENCE UNITS LAB L300.4150 11.7-14.9 SECONDS Normal PROTIME 14.7 LAB L300.4200 Normal INR 1.2 Performed By: #### L300.3900 #### [facility] [address] [place], [address] ERYTHROCYTE SED RATE Collected: 04/02/2018 Status: F Source: [place] 5:55 AM [facility] REPOSITORY Order Comment: ROOM 305 TYPE CODE TESTS RESULT OUT OF RANGE REFERENCE UNITS LAB L102.0000 0-20 mm/hr High SED RATE 35 Performed By: #### L101.9900, L100.0100 #### [facility] [address] [place], [address] CBC W/DIFF, AUTOMATED Collected: 04/02/2018 Status: C Source: [place] 5:55 AM [facility] REPOSITORY Order Comment: ROOM 305 TYPE [...] orin Performed By: #### L101.9900, L100.0100 #### [facility] [address] [place], [address] BASIC METABOLIC Collected: 04/02/2018 Status: F Source: [place] PROFILE ([facility]) 5:55 AM [facility] REPOSITORY Order Comment: ROOM 305 TYPE [...] GAP 8 Performed By: #### L500.2500 #### [facility] [address] [place], [address] PROGRESS Observed: 04/01/2018 Status: COMPLETED Source: [place] 4:45 PM [facility] REPOSITORY HNO ID: [id number] Author: Blaire De La Torre RN Service: (none) Author Type: (none) Type: Progress Notes Filed: 04/01/2018 4:49 PM Note Text: OPERATIVE NOTATION FOR [facility] SURGICAL PROCEDURE. 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 ASA CLASS: 2 [...] < 100 04/01/2012 - Pulmonary embolus, right ([facility]) 09/25/2013 - Status post aortic valve repair 2004 - Thoracic aneurysm without mention of rupture - Type 2 diabetes mellitus with stage 3 chronic kidney disease, with long-term current use of insulin ([facility]) 06/20/2016 - Type II or unspecified type diabetes mellitus without mention of complication, not stated as uncontrolled COMORBIDITIES - None Post Op Occurrences - None Wound Classification - Clean Operative note dictated in the [facility] dictation system. TRANSFER TO [facility] Observed: 04/01/2018 Status: F Source: [facility] 11:47 AM [facility] REPOSITORY [facility] Medical Records Department [address] [place] [address] Transfer to Extended Care MR#: [id number] Acct: [id number] Name: RICHARD ROY Rep #: [id number] : 1945 72 From: Gabriel Giraldo DO PCP: Dmitry Roberto III, MD Status: ADM IN RICHARD ROY (Patient) (Health Ins. Claim No.) (Day of Discharge to Facility) Certification of patient admission REQUIRED AT TIME OF ADMISSION. I CERTIFY THAT POST-HOSPITAL F SERVICES ARE REQUIRED TO BE GIVEN ON AN IN-PATIENT BASIS BECAUSE OF THE ABOVE NAMED PATIENT'S NEED FOR LONG TERM CARE ON A CONTINUING BASIS FOR THE [...] 04/01/2018 Status: F Source: [place] 11:34 AM [facility] REPOSITORY TYPE CODE TESTS RESULT OUT OF REFERENCE UNITS RANGE LAB L501.080 70-110 mg/dL High BEDSIDE GLU 148 Result Comment: MANAGEMENT OF PATIENT CARE PER NURSING PROTOCOL Performed By: #### L501.080 #### [facility] Point of Care [address] [place], [place] [address] CBC W/DIFF, AUTOMATED Collected: 04/01/2018 Status: C Source: [place] 7:10 AM [facility] REPOSITORY TYPE CODE TESTS RESULT OUT [...] November orin Performed By: #### L100.0100 #### [facility] [place], [address] BEDSIDE GLUCOSE Collected: 04/01/2018 Status: F Source: [place] 6:54 [facility] REPOSITORY TYPE CODE TESTS RESULT OUT OF REFERENCE UNITS RANGE LAB L501.080 70-110 mg/dL High BEDSIDE GLU 132 Result Comment: MANAGEMENT OF PATIENT CARE PER NURSING PROTOCOL Performed By: #### L501.080 #### [facility] Point of [place] [address] CNOP Observed: 04/01/2018 Status: COMPLETED Source: [place] 12:00 AM [facility] REPOSITORY Operative Note (Enc) (PODIWS) Progress Notes: Blaire De La Torre RN 04/01/2018 4:49 PM Signed OPERATIVE NOTATION FOR [facility] SURGICAL PROCEDURE. Richard Bonilla Kirill 1945 [id number] male PROCEDURE: 03/25/18: R hallux amputation 03/28/18: Delayed closure, R SURGEON: Arminda Obregon DPM APPLICATION INTEGRATION ARCHITECT: None DEPT: WQ PROVIDER: Arminda Obregon DPM POS: [id number] DIAGNOSIS: No diagnosis found. ASA CLASS: 2 - mild FINDINGS: see pathology COMPLICATIONS: None PMHx - PAST MEDICAL HISTORY Diagnosis Date - Cholelithiasis 09/25/2013 - Diabetes mellitus with neurological manifestation ([facility]) 09/08/2010 - Diverticulosis of colon (without mention [...] disease, with long-term current use of insulin ([facility]) 06/20/2016 - Type II or unspecified type diabetes mellitus without mention of complication, not stated as uncontrolled COMORBIDITIES - None Post Op Occurrences - None Wound Classification - Clean Operative note dictated in the [facility] dictation system. Encounter Status:Closed by BLAIRE DE LA TORRE RN on 04/01/18 BEDSIDE GLUCOSE Collected: 03/31/2018 Status: F Source: [place] 9:20 PM [facility] REPOSITORY TYPE CODE TESTS RESULT OUT OF REFERENCE UNITS RANGE LAB L501.080 70-110 mg/dL High BEDSIDE GLU 156 Result Comment: MANAGEMENT OF PATIENT CARE PER NURSING PROTOCOL Performed By: #### L501.080 #### [facility] Point of Care [address] [place] [address] BEDSIDE GLUCOSE Collected: 03/31/2018 Status: F Source: [place] 5:07 PM [facility] REPOSITORY TYPE CODE TESTS RESULT OUT OF REFERENCE UNITS RANGE LAB L501.080 70-110 mg/dL High BEDSIDE GLU 120 Result Comment: MANAGEMENT OF PATIENT CARE PER NURSING PROTOCOL Performed By: #### L501.080 #### [facility] Point of Care [address] [place] [address] 12 LEAD ELECTROCARDIOGRAM Observed: 03/31/2018 Status: F Source: [place] 3:58 PM [facility] REPOSITORY [facility] Cardiovascular Services [address] [place] [address] 12 Lead EKG 03/28/18 0455 MR#: [id number] Acct: [id number] Name: RICHARD ROY Rep #: [id number] : 1945 72 From: Júnior Chandra MD Attending Dr: Yolie Nguyen M.D. Status: ADM IN Ordering Dr: Vernon Alanis MD Date: 03/28/18 Location: [facility] Sex: M C Admitted: 03/24/18 Test Reason [...] evident in Anterior leads Confirmed by JÚNIOR CHANDRA MD ([id number]), editor news MARY INMAN ([id number]) on 03/31/2018 3:58:06 PM Referred By: Jesus Burnham Confirmed By:JÚNIOR CHANDRA MD 03/31/18 1558 Date Júnior Chandra MD CC: Vernon Alanis MD; Dmitry Roberto III, MD; Yolie Nguyen M.D.; Jesus Burnham MD Signed FOOT 2 VIEWS Observed: 03/31/2018 Status: F Source: [place] 2:32 PM [facility] REPOSITORY [facility] Imaging Services [address] [place], [place] [address] [address] Foot 2 Views MR#: [id number] Acct: [id number] Name: RICHARD ROY Rep #: [id number] : 1945 M 72 From: Ravindra Sierra MD PCP: Dmitry Roberto III, MD Status: ADM IN Study: Foot 2 Views Date of Exam: 03/31/18 Exam# [id number] Ordering Dr: Arminda Obregon DPM STUDY: X-RAY [...] Ravindra Sierra MD at 15:25 EDT Tel [phone], Service support , CC: WINSOME Obregon; Dmitry Roberto III, MD Automobile Dealer: Signed CBC W/DIFF, AUTOMATED Collected: 03/31/2018 Status: C Source: [place] 2:00 PM [facility] REPOSITORY TYPE CODE TESTS RESULT OUT [...] as: November Performed By: #### L100.0100 #### [facility] [address] [place], [address] BEDSIDE GLUCOSE Collected: 03/31/2018 Status: F Source: [place] 12:48 PM [facility] REPOSITORY TYPE CODE TESTS RESULT OUT OF REFERENCE UNITS RANGE LAB L501.080 70-110 mg/dL High BEDSIDE GLU 166 Result Comment: MANAGEMENT OF PATIENT CARE PER NURSING PROTOCOL Performed By: #### L501.080 #### [facility] Point of Care [address] [place] [address] BEDSIDE GLUCOSE Collected: 03/31/2018 Status: F Source: [place] 6:29 AM [facility] REPOSITORY TYPE CODE TESTS RESULT OUT OF REFERENCE UNITS RANGE LAB L501.080 70-110 mg/dL High BEDSIDE GLU 157 Result Comment: MANAGEMENT OF PATIENT CARE PER NURSING PROTOCOL Performed By: #### L501.080 #### [facility] Point of Care [address] [place] [address] BEDSIDE GLUCOSE Collected: 03/30/2018 Status: F Source: [place] 8:57 PM [facility] REPOSITORY TYPE CODE TESTS RESULT OUT OF REFERENCE UNITS RANGE LAB L501.080 70-110 mg/dL High BEDSIDE GLU 165 Result Comment: MANAGEMENT OF PATIENT CARE PER NURSING PROTOCOL Performed By: #### L501.080 #### [facility] Point of Care [address] [place] [address] BEDSIDE GLUCOSE Collected: 03/30/2018 Status: F Source: [place] 4:18 PM [facility] REPOSITORY TYPE CODE TESTS RESULT OUT OF REFERENCE UNITS RANGE LAB L501.080 70-110 mg/dL High BEDSIDE GLU 164 Result Comment: MANAGEMENT OF PATIENT CARE PER NURSING PROTOCOL Performed By: #### L501.080 #### [facility] Point of Care [address] [place] [address] BEDSIDE GLUCOSE Collected: 03/30/2018 Status: F Source: [place] 11:46 AM [facility] REPOSITORY TYPE CODE TESTS RESULT OUT OF REFERENCE UNITS RANGE LAB L501.080 70-110 mg/dL High BEDSIDE GLU 196 Result Comment: MANAGEMENT OF PATIENT CARE PER NURSING PROTOCOL Performed By: #### L501.080 #### [facility] Point of Care [address] [place], [place] [address] BEDSIDE GLUCOSE Collected: 03/30/2018 Status: F Source: [place] 6:24 AM [facility] REPOSITORY TYPE CODE TESTS RESULT OUT OF REFERENCE UNITS RANGE LAB L501.080 70-110 mg/dL High BEDSIDE GLU 147 Result Comment: MANAGEMENT OF PATIENT CARE PER NURSING PROTOCOL Performed By: #### L501.080 #### [facility] Point of Care [address] [place] [address] CBC W/DIFF, AUTOMATED Collected: 03/30/2018 Status: C Source: [place] 5:55 AM [facility] REPOSITORY TYPE CODE TESTS RESULT OUT [...] Corie sr Performed By: #### L100.0100 #### [facility] [address] [place], [address] COMPREHENSIVE METABOLIC Collected: 03/30/2018 Status: F Source: [facility] 5:55 AM [facility] REPOSITORY TYPE CODE TESTS RESULT OUT [...] GAP 9 Performed By: #### L500.4050 #### [facility] [address] [facility] [place], [address] BEDSIDE GLUCOSE Collected: 03/29/2018 Status: F Source: [place] 10:01 PM [facility] REPOSITORY TYPE CODE TESTS RESULT OUT OF REFERENCE UNITS RANGE LAB L501.080 70-110 mg/dL High BEDSIDE GLU 165 Result Comment: MANAGEMENT OF PATIENT CARE PER NURSING PROTOCOL Performed By: #### L501.080 #### [facility] Point of Care [address] [facility] [place] [address] BEDSIDE GLUCOSE Collected: 03/29/2018 Status: F Source: [place] 4:41 PM [facility] REPOSITORY TYPE CODE TESTS RESULT OUT OF REFERENCE UNITS RANGE LAB L501.080 70-110 mg/dL High BEDSIDE GLU 147 Result Comment: MANAGEMENT OF PATIENT CARE PER NURSING PROTOCOL Performed By: #### L501.080 #### [facility] Point of Care [address] [place] [address] BEDSIDE GLUCOSE Collected: 03/29/2018 Status: F Source: [place] 11:41 AM [facility] REPOSITORY TYPE CODE TESTS RESULT OUT OF REFERENCE UNITS RANGE LAB L501.080 70-110 mg/dL High BEDSIDE GLU 195 Result Comment: MANAGEMENT OF PATIENT CARE PER NURSING PROTOCOL Performed By: #### L501.080 #### [facility] Point of Care [address] [place] [address] OPERATIVE REPORT Observed: 03/29/2018 Status: F Source: [place] 7:53 AM [facility] REPOSITORY [facility] Medical Records Department [address] [place] [address] Operative Report 03/28/186 MR#: [id number] Acct: [id number] Name: RICHARD ROY Rep #: [id number] : 1945 72 From: Arminda Obregon DPM PCP: Dmitry Roberto III, MD Status: ADM IN Y Location: [address] Report of Operation Date of Procedure: 03/25/18 Pre-Operative Diagnosis: open wound, right foot Post-Operative Diagnosis: open wound, right foot Surgery/Procedure Performed:: debridement of nonviable tissue with delayed primary closure and placement of drain Description of Surgical Findings:: good healthy granulation tissue s/p debridement. no active purulence or redness or signs of infection. 1st metatarsal appears healthy. news clipping cutter: None Type of Anesthesia:: Local MAC Specimen's removed: none Estimated Blood Loss (mL): <10 cc Description of Procedure: Patient is a 72 year old male with history of diabetes who developed ulceration of right hallux. Ulceration failed to improve and later developed infection last weekend. He was admitted to [facility] earlier this week where he underwent amputation [...] OPERATIVE REPORT Observed: 03/29/2018 Status: F Source: [place] 7:49 AM [facility] Medical Records Department [address] [place] [address] Operative Report 03/25/182011 MR#: [id number] Acct: [id number] Name: RICHARD ROY Rep #: [id number] : 1945 72 From: Arminda Obregon DPM PCP: Dmitry Roberto III, MD Status: ADM IN Y Location: [facility] [id number] Report of Operation Date of Procedure: 03/25/18 [...] 1st metatarsal was found to be healthy. news clipping cutter: None Type of Anesthesia:: General Specimen's removed: [...] 03/29/2018 Status: F Source: [place] 6:22 AM [facility] REPOSITORY TYPE CODE TESTS RESULT OUT OF REFERENCE UNITS RANGE LAB L501.080 70-110 mg/dL High BEDSIDE GLU 146 Result Comment: MANAGEMENT OF PATIENT CARE PER NURSING PROTOCOL Performed By: #### L501.080 #### [facility] Point of Care [address] [place] [address] BEDSIDE GLUCOSE Collected: 03/28/2018 Status: F Source: [place] 9:31 PM [facility] REPOSITORY TYPE CODE TESTS RESULT OUT OF REFERENCE UNITS RANGE LAB L501.080 70-110 mg/dL High BEDSIDE GLU 185 Result Comment: MANAGEMENT OF PATIENT CARE PER NURSING PROTOCOL Performed By: #### L501.080 #### [facility] Point of Care [address] [place] [address] BEDSIDE GLUCOSE Collected: 03/28/2018 Status: F Source: [place] 5:00 PM [facility] REPOSITORY TYPE CODE TESTS RESULT OUT OF REFERENCE UNITS RANGE LAB L501.080 70-110 mg/dL High BEDSIDE GLU 123 Result Comment: MANAGEMENT OF PATIENT CARE PER NURSING PROTOCOL Performed By: #### L501.080 #### [facility] Point of Care [address] [place] [address] BEDSIDE GLUCOSE Collected: 03/28/2018 Status: F Source: [place] 1:50 PM [facility] REPOSITORY TYPE CODE TESTS RESULT OUT OF REFERENCE UNITS RANGE LAB L501.080 70-110 mg/dL High BEDSIDE GLU 137 Result Comment: MANAGEMENT OF PATIENT CARE PER NURSING PROTOCOL Performed By: #### L501.080 #### [facility] Point of Care [address] [place] [address] BEDSIDE GLUCOSE Collected: 03/28/2018 Status: F Source: [place] 11:02 AM [facility] REPOSITORY TYPE CODE TESTS RESULT OUT OF REFERENCE UNITS RANGE LAB L501.080 70-110 mg/dL High BEDSIDE GLU 183 Result Comment: MANAGEMENT OF PATIENT CARE PER NURSING PROTOCOL Performed By: #### L501.080 #### [facility] Point of Care [address] [place] [address] BEDSIDE GLUCOSE Collected: 03/28/2018 Status: F Source: [place] 6:33 AM [facility] REPOSITORY TYPE CODE TESTS RESULT OUT OF REFERENCE UNITS RANGE LAB L501.080 70-110 mg/dL High BEDSIDE GLU 148 Result Comment: MANAGEMENT OF PATIENT CARE PER NURSING PROTOCOL Performed By: #### L501.080 #### [facility] Point of Care [address] [place] [address] CBC W/DIFF, AUTOMATED Collected: 03/28/2018 Status: F Source: [place] 5:15 AM [facility] REPOSITORY TYPE CODE TESTS RESULT OUT [...] Lymph 1.97 Performed By: #### L100.0100 #### [facility] [address] [place], [place], [id number] PROTHROMBIN TIME W/INR Collected: 03/28/2018 Status: F Source: [place] 5:15 AM [facility] REPOSITORY TYPE CODE TESTS RESULT OUT OF RANGE REFERENCE UNITS LAB L300.4150 11.7-14.9 SECONDS High PROTIME 25.8 LAB L300.4200 Normal INR 2.3 Performed By: #### L300.3900, L300.4310 #### [facility] [address] [place], [place], [address] PARTIAL THROMBOPLAST Collected: 03/28/2018 Status: F Source: [place] TIME 5:15 AM [facility] REPOSITORY TYPE CODE TESTS RESULT OUT OF REFERENCE UNITS RANGE LAB L300.4310 24.1-36.2 Seconds High PTT 52.4 Performed By: #### L300.3900, L300.4310 #### [facility] [address] [place], [address] COMPREHENSIVE METABOLIC Collected: 03/28/2018 Status: F Source: [place] [facility] 5:15 AM [facility] REPOSITORY TYPE CODE TESTS RESULT OUT [...] GAP 9 Performed By: #### L500.4050 #### [facility] [address] [place], [address] HEMOGLOBIN A1C Collected: 03/28/2018 Status: F Source: [place] 5:15 AM [facility] REPOSITORY TYPE CODE TESTS RESULT OUT OF RANGE REFERENCE UNITS LAB L501.9985 4.2-6.3 % High HGB A1C 8.1 Performed By: #### L501.9985 #### [facility] [address] [place], [address] BEDSIDE GLUCOSE Collected: 03/27/2018 Status: F Source: [place] 9:28 PM [facility] REPOSITORY TYPE CODE TESTS RESULT OUT OF REFERENCE UNITS RANGE LAB L501.080 70-110 mg/dL High BEDSIDE GLU 210 Result Comment: MANAGEMENT OF PATIENT CARE PER NURSING PROTOCOL Performed By: #### L501.080 #### [facility] Point of Care [address] [place] [address] BEDSIDE GLUCOSE Collected: 03/27/2018 Status: F Source: [place] 4:59 PM [facility] REPOSITORY TYPE CODE TESTS RESULT OUT OF REFERENCE UNITS RANGE LAB L501.080 70-110 mg/dL High BEDSIDE GLU 202 Result Comment: MANAGEMENT OF PATIENT CARE PER NURSING PROTOCOL Performed By: #### L501.080 #### [facility] Point of Care [address] [place] [address] BEDSIDE GLUCOSE Collected: 03/27/2018 Status: F Source: [place] 11:43 AM [facility] REPOSITORY TYPE CODE TESTS RESULT OUT OF REFERENCE UNITS RANGE LAB L501.080 70-110 mg/dL High BEDSIDE GLU 245 Result Comment: MANAGEMENT OF PATIENT CARE PER NURSING PROTOCOL Performed By: #### L501.080 #### [facility] Point of Care [address] [place] [address] Observed: 03/27/2018 Status: F Source: [place] CULTURE, BLOOD (WB) 11:14 AM [facility] REPOSITORY BC No growth in 5 days. Performed By: #### M200.1000 #### [facility] [address] [place], [address] CONSULTATION Observed: 03/27/2018 Status: F Source: [place] 8:58 AM [facility] REPOSITORY [facility] Medical Records Department [address] [place] [address] Consultation 03/27/18 0645 MR#: [id number] Acct: [id number] Name: RICHARD ROY Rep #: [id number] : 1945 72 From: Kee Mejia DPM PCP: Dmitry Roberto III, MD Status: ADM IN Y Location: [address] Reason for Consult Date of Consultation: [...] 03/27/2018 Status: C Source: [place] 6:40 AM [facility] REPOSITORY TYPE CODE TESTS RESULT OUT [...] as: November Performed By: #### L100.0100 #### [facility] [address] [place], [address] BEDSIDE GLUCOSE Collected: 03/27/2018 Status: F Source: [place] 6:25 AM [facility] REPOSITORY TYPE CODE TESTS RESULT OUT OF REFERENCE UNITS RANGE LAB L501.080 70-110 mg/dL High BEDSIDE GLU 181 Result Comment: MANAGEMENT OF PATIENT CARE PER NURSING PROTOCOL Performed By: #### L501.080 #### [facility] Point of Care [address] [place] [address] BEDSIDE GLUCOSE Collected: 03/26/2018 Status: F Source: [place] 10:03 PM [facility] REPOSITORY TYPE CODE TESTS RESULT OUT OF REFERENCE UNITS RANGE LAB L501.080 70-110 mg/dL High BEDSIDE GLU 224 Result Comment: MANAGEMENT OF PATIENT CARE PER NURSING PROTOCOL Performed By: #### L501.080 #### [facility] Point of Care [address] [place] [address] BEDSIDE GLUCOSE Collected: 03/26/2018 Status: F Source: [place] 3:55 PM [facility] REPOSITORY TYPE CODE TESTS RESULT OUT OF REFERENCE UNITS RANGE LAB L501.080 70-110 mg/dL High BEDSIDE GLU 187 Result Comment: MANAGEMENT OF PATIENT CARE PER NURSING PROTOCOL Performed By: #### L501.080 #### [facility] Point of Care [address] [place] [address] ECHO, COMPLETE W/ Observed: 03/26/2018 Status: F Source: [place] CONTRAST 2:37 PM [facility] REPOSITORY [facility] Cardiovascular Services [address] [place] [address] Echo Complete 03/26/18 1320 MR#: [id number] Acct: [id number] Name: RICHARD ROY Rep #: [id number] : 1945 72 From: Christ Kang MD Attending Dr: Yolie Nguyen M.D. Status: ADM IN Ordering Dr: Smith Ndiaye MD Date: 03/26/18 Location: [facility] Sex: Nelson Anthony Admitted: 03/24/18 Version 2 [...] Dictated: 03/26/18 1320 Date Transcribed: 03/26/18 1435 Automobile Dealer: Signed CONSULTATION Observed: 03/26/2018 Status: F Source: [place] 12:10 PM [facility] REPOSITORY [facility] Medical Records Department [address] [place] [address] Consultation 03/26/18 1205 MR#: [id number] Acct: [id number] Name: RICHARD ROY Rep #: [id number] : 1945 72 From: Smith Ndiaye MD PCP: Dmitry Roberto III, MD Status: ADM IN Y Location: [facility] [place]511-7 Problem List (1) Osteomyelitis Status: Acute Qualifiers: [...] EXT/NO JT/W/O Observed: 03/26/2018 Status: F Source: [place] 12:02 PM [facility] REPOSITORY [facility] Imaging Services [address] [place], [place] [address] [address] Lower Ext/No Jt/w/o MR#: [id number] Acct: [id number] Name: RICHARD ROY Rep #: [id number] : 1945 M 72 From: Tyler Neal MD PCP: Dmitry Roberto III, MD Status: ADM IN Study: Lower Ext/No Jt/w/o Date of Exam: 03/26/18 Exam# [id number] Ordering Dr: Arminda Obregon DPM ADDENDUM by [...] CC: WINSOME Obregon; Dmitry Roberto III, MD Automobile Dealer: Signed BEDSIDE GLUCOSE Collected: 03/26/2018 Status: F Source: [place] 11:30 AM [facility] REPOSITORY TYPE CODE TESTS RESULT OUT OF REFERENCE UNITS RANGE LAB L501.080 70-110 mg/dL High BEDSIDE GLU 240 Result Comment: MANAGEMENT OF PATIENT CARE PER NURSING PROTOCOL Performed By: #### L501.080 #### [facility] Point of Care [address] [place] [address] Observed: 03/26/2018 Status: F Source: [place] CULTURE, BLOOD (WB) 10:04 AM [facility] REPOSITORY BC No growth in 5 days. Performed By: #### M200.1000 #### [facility] [address] [place], [address] FOOT MIN 3 VIEWS Observed: 03/26/2018 Status: F Source: [place] 8:23 AM [facility] REPOSITORY [facility] Imaging Services [address] [facility] [place] [address] Foot min 3 Views MR#: [id number] Acct: [id number] Name: RICHARD ROY Rep #: [id number] : 1945 M 72 From: Tyler Neal MD PCP: Dmitry Roberto III, MD Status: ADM IN Study: Foot min 3 Views Date of Exam: 03/26/18 Exam# [id number] Ordering Dr: Arminda Obregon DPM STUDY: X-RAY [...] CC: WINSOME Obregon; Dmitry Roberto III, MD Automobile Dealer: Signed BEDSIDE GLUCOSE Collected: 03/26/2018 Status: F Source: [place] 6:36 AM [facility] REPOSITORY TYPE CODE TESTS RESULT OUT OF REFERENCE UNITS RANGE LAB L501.080 70-110 mg/dL High BEDSIDE GLU 188 Result Comment: MANAGEMENT OF PATIENT CARE PER NURSING PROTOCOL Performed By: #### L501.080 #### [facility] Point of Care [address] [place], [place] [address] CBC W/DIFF, AUTOMATED Collected: 03/26/2018 Status: F Source: [place] 6:10 AM [facility] REPOSITORY TYPE CODE TESTS RESULT OUT [...] Lymph 1.14 Performed By: #### L100.0100 #### [facility] [address] [place], [place], [address] BASIC METABOLIC Collected: 03/26/2018 Status: F Source: [place] PROFILE (BMP) 6:10 AM [facility] REPOSITORY TYPE CODE TESTS RESULT OUT [...] GAP 12 Performed By: #### L500.2500 #### [facility] [address] [place], [place], [address] BEDSIDE GLUCOSE Collected: 03/25/2018 Status: F Source: [place] 9:46 PM [facility] REPOSITORY TYPE CODE TESTS RESULT OUT OF REFERENCE UNITS RANGE LAB L501.080 70-110 mg/dL High BEDSIDE GLU 184 Result Comment: MANAGEMENT OF PATIENT CARE PER NURSING PROTOCOL Performed By: #### L501.080 #### [facility] Point of Care [address] [place], [place] [address] BEDSIDE GLUCOSE Collected: 03/25/2018 Status: F Source: [place] 6:28 PM [facility] REPOSITORY TYPE CODE TESTS RESULT OUT OF REFERENCE UNITS RANGE LAB L501.080 70-110 mg/dL High BEDSIDE GLU 169 Result Comment: MANAGEMENT OF PATIENT CARE PER NURSING PROTOCOL Performed By: #### L501.080 #### [facility] Point of Care [address] [place], [place] [address] Observed: 03/25/2018 Status: F Source: [place] CULTURE, DEEP WOUND 4:52 PM [facility] REPOSITORY List Antibiotics Last 48 Hours? [...] <=0.5 S (NF) indicates non-formulary drug at [facility]. Approval by Infectious Disease Specialist required before non-formulary drugs may be ordered and/or dispensed. * CLSI guidelines does not recommend testing of cephalosporins. This interpretation is deduced from Beta-lactam/penicillin results. Cult, Anaerobic No anaerobic bacteria isolated. Performed By: #### M100.1500 #### [facility] [address] [place], [place], [address] Observed: 03/25/2018 Status: F Source: [place] CULTURE, DEEP WOUND 4:52 PM [facility] REPOSITORY List Antibiotics Last 48 Hours? [...] <=0.5 S (NF) indicates non-formulary drug at [facility]. Approval by Infectious Disease Specialist required before non-formulary drugs may be ordered and/or dispensed. * CLSI guidelines does not recommend testing of cephalosporins. This interpretation is deduced from Beta-lactam/penicillin results. Cult, Anaerobic No anaerobic bacteria isolated. Performed By: #### M100.1500 #### [facility] [address] [place], [place], [address] AF[employer] Observed: 03/25/2018 Status: F Source: [place] CULT/SMEAR [id number] 4:52 PM [facility] REPOSITORY Comments: 1) PRE LAVAGE PROXIMAL PHALANX RIGHT HALLUX Is this test to exclude patient from TB Isolation? N AFB Smear/Fluor [facility] ORIGINAL REPORT ON FILE IN LAB CONTAINS ADDITIONAL TEST SITE INFORMATION. Smear, Acid Fast Tissue Grinding Smear: Negative AFB Cult TESTING PERFORMED AT [facility]. ORIGINAL REPORT ON FILE IN LAB CONTAINS ADDITIONAL TEST SITE INFORMATION. Culture, Acid Fast NO ACID-FAST BACILLI ISOLATED AFTER 6 WEEKS. Performed By: #### M100.3880, M600.1900 #### [facility] [address] [place], [address] Observed: 03/25/2018 Status: F Source: MICHAEL VAZQUEZ W/ 4:52 PM [facility] [id number] REPOSITORY Comments: 1) PRE LAVAGE PROXIMAL PHALANX RIGHT HALLUX Is this test to exclude patient from TB Isolation? N Cu,[id number] TESTING PERFORMED AT [facility]. ORIGINAL REPORT ON FILE IN LAB CONTAINS ADDITIONAL TEST SITE INFORMATION. CUF No yeast or mold isolated after [address] [facility]. ORIGINAL REPORT ON FILE IN LAB CONTAINS ADDITIONAL TEST SITE INFORMATION. Fungus Stain No yeast or mold observed. Performed By: #### M100.3880, M600.1900 #### [facility] [address] [place], [address] AFB Observed: 03/25/2018 Status: F Source: [place] CULT/SMEAR [id number] 4:52 PM [facility] REPOSITORY Comments: 3) POST LAVAGE FIRST METATARSAL RIGHT FOOT AFB Smear/Fluor TESTING PERFORMED AT [facility]. ORIGINAL REPORT ON FILE IN LAB CONTAINS ADDITIONAL TEST SITE INFORMATION. Smear, Acid Fast Tissue Grinding Smear: Negative AFB Cult TESTING PERFORMED AT [facility]. ORIGINAL REPORT ON FILE IN LAB CONTAINS ADDITIONAL TEST SITE INFORMATION. Culture, Acid Fast NO ACID-FAST BACILLI ISOLATED AFTER 6 WEEKS. Performed By: #### M100.3880 #### [place] [facility] [address] [place], [address] Observed: 03/25/2018 Status: F Source: [place] DEAN, FUNGUS W/ 4:52 PM [facility] [id number] REPOSITORY Comments: 3) POST LAVAGE FIRST METATARSAL RIGHT FOOT Is this test to exclude patient from TB Isolation? N Cu,[id number] TESTING PERFORMED AT [facility]. ORIGINAL REPORT ON FILE IN LAB CONTAINS ADDITIONAL TEST SITE INFORMATION. CUF No yeast or mold isolated after [address] TESTING PERFORMED AT [facility]. ORIGINAL REPORT ON FILE IN LAB CONTAINS ADDITIONAL TEST SITE INFORMATION. Fungus Stain No yeast or mold observed. Performed By: #### M600.1900 #### [place] [facility] [address] [place], [address] BEDSIDE GLUCOSE Collected: 03/25/2018 Status: F Source: [place] 4:48 PM [facility] REPOSITORY TYPE CODE TESTS RESULT OUT OF REFERENCE UNITS RANGE LAB L501.080 70-110 mg/dL High BEDSIDE GLU 165 Result Comment: MANAGEMENT OF PATIENT CARE PER NURSING PROTOCOL Performed By: #### L501.080 #### [facility] Point of Care [address] [place] [address] FOOT MIN 3 VIEWS Observed: 03/25/2018 Status: F Source: [place] 4:22 PM [facility] REPOSITORY [facility] Imaging Services [address] [place] [address] Foot min 3 Views MR#: [id number] Acct: [id number] Name: RICHARD ROY Rep #: [id number] : 1945 M 72 From: [place] MD PCP: Dmitry Roberto III, MD Status: ADM IN Study: Foot min 3 Views Date of Exam: 03/25/18 Exam# [id number] Ordering Dr: Arminda Obregon DPNelson ADDENDUM by [...] CC: WINSOME Obregon; Dmitry Roberto III, MD Automobile Dealer: Signed BEDSIDE GLUCOSE Collected: 03/25/2018 Status: F Source: [place] 11:16 AM [facility] REPOSITORY TYPE CODE TESTS RESULT OUT OF REFERENCE UNITS RANGE LAB L501.080 70-110 mg/dL High BEDSIDE GLU 237 Result Comment: MANAGEMENT OF PATIENT CARE PER NURSING PROTOCOL Performed By: #### L501.080 #### [facility] Point of Care [facility] [address] [place], [place] [address] LACTIC ACID Collected: 03/25/2018 Status: F Source: [place] 9:35 AM [facility] REPOSITORY TYPE CODE TESTS RESULT OUT OF REFERENCE UNITS RANGE LAB L503.6005 0.4-2.0 mmol/L High LACTIC ACID 2.2 Result Comment: Critical Result(s) Called at: 10:09:38 03/25/2018 by: AYLA Mendosa Performed By: #### L503.6005 #### [facility] [address] [place], [address] LOWER EXT/NO JT/W/O Observed: 03/25/2018 Status: F Source: [place] 8:16 AM [facility] REPOSITORY [facility] Imaging Services [address] [place] [address] Lower Ext/No Jt/w/o MR#: [id number] Acct: [id number] Name: RICHARD ROY Rep #: [id number] : 1945 M 72 From: Tyler Neal MD PCP: Dmitry Roberto III, MD Status: ADM IN Study: Lower Ext/No Jt/w/o Date of Exam: 03/25/18 Exam# [id number] Ordering Dr: Arminda Obregon DPM STUDY: MRI [...] CC: WINSOME Obregon; Dmitry Roberto III, MD Automobile Dealer: Signed CONSULTATION Observed: 03/25/2018 Status: F Source: [place] 7:33 AM [facility] REPOSITORY [facility] Medical Records Department [address] [place] [address] Consultation 03/25/18 0717 MR#: [id number] Acct: [id number] Name: RICHARD ROY Rep #: [id number] : 1945 72 From: Arminda Obregon DPM PCP: Dmitry Roberto III, MD Status: ADM IN Location: [facility] BA391-7 Reason for Consult Date of Consultation: 03/25/18 [...] 03/25/2018 Status: F Source: [place] 7:30 AM [facility] REPOSITORY Patient: RICHARD ROY : 1945 (72/M) Acct Num: [id number] Phys: Yolie Nguyen M.D. Unit Num: [id number] Loc: MS2 [id number] Specimen: [id number] Received: 03/26/18 - 8178 Spec Type: Bone TISSUES TISSUES: A. Bone [...] No obvious area of ulcerated is noted. Car Cleaner sections are submitted in three cassettes [...] after decalcification. / TESSIE:radhika 03/26/18 TC:2 CPT: 16984, 11777, 37699 x2, 94687 x2 HEADER OPERATION: Incision and drainage, partial [...] on file> Performed By: #### PBON #### [facility] [address] [place], [place], [address] BEDSIDE GLUCOSE Collected: 03/25/2018 Status: F Source: [place] 6:18 AM [facility] REPOSITORY TYPE CODE TESTS RESULT OUT OF REFERENCE UNITS RANGE LAB L501.080 70-110 mg/dL High BEDSIDE GLU 221 Result Comment: MANAGEMENT OF PATIENT CARE PER NURSING PROTOCOL Performed By: #### L501.080 #### [facility] Point of Care [address] [place], [place] [address] LACTIC ACID Collected: 03/25/2018 Status: F Source: [place] 5:05 AM [facility] REPOSITORY Order Comment: Yes/No query for Sepsis Lactate Rule Y TYPE CODE TESTS RESULT OUT OF REFERENCE UNITS RANGE LAB L503.6005 0.4-2.0 mmol/L High LACTIC ACID 2.3 Result Comment: Critical Result(s) Called at: 06:01:16 03/25/2018 by: EVA SPARROW RN MS2 Performed By: #### L503.6005 #### [facility] [address] [facility] [place], [place], [address] PROTHROMBIN TIME W/INR Collected: 03/25/2018 Status: F Source: [place] 2:37 AM [facility] REPOSITORY TYPE CODE TESTS RESULT OUT OF RANGE REFERENCE UNITS LAB L300.4150 11.7-14.9 SECONDS High PROTIME 31.7 LAB L300.4200 Normal INR 3.0 Performed By: #### L300.3900 #### [facility] [address] [facility] [place], [address] CBC W/DIFF, AUTOMATED Collected: 03/25/2018 Status: F Source: [place] 2:37 AM [facility] REPOSITORY TYPE CODE TESTS RESULT OUT [...] Lymph 1.59 Performed By: #### L100.0100 #### [facility] [address] [place], [address] BASIC METABOLIC Collected: 03/25/2018 Status: F Source: [place] PROFILE (BMP) 2:37 AM [facility] REPOSITORY TYPE CODE TESTS RESULT OUT [...] GAP 13 Performed By: #### L500.2500 #### [facility] [address] [place], [address] LACTIC ACID Collected: 03/25/2018 Status: F Source: [place] 2:37 AM [facility] REPOSITORY TYPE CODE TESTS RESULT OUT OF REFERENCE UNITS RANGE LAB L503.6005 0.4-2.0 mmol/L High LACTIC ACID 2.1 Result Comment: Critical Result(s) Called at: 03:43:35 03/25/2018 by: EVA MORAN TO JACEY LOAIZA MS2 Performed By: #### L503.6005 #### [facility] [address] [place], [address] HISTORY AND PHYSICAL Observed: 03/25/2018 Status: F Source: [place] EXAM 12:02 AM [facility] REPOSITORY [facility] Medical Records Department [address] [place] [address] History and Physical 03/24/18 2346 MR#: [id number] Acct: [id number] Name: RICHARD ROY Rep #: [id number] : 1945 72 From: Jesus Burnham MD [...] (Auto) Neut % (Auto) Lymph % (Auto) [place] % (Auto) Assessment/Plan All Active Problems Ulcer [...] am Code Visit Inpatient E AND M: 89619 Init Hosp L3 03/25/18 0002 <Electronically signed by Jesus Burnham MD> Date Jesus Burnham MD Cosigner Signature: Date (if applicable) CC: Dmitry Roberto III, MD; Jesus Burnham MD Signed EMERGENCY DEPARTMENT Observed: 03/24/2018 Status: F Source: [place] SUMMARY 10:58 PM [facility] REPOSITORY [facility] Medical Records Department [address] [place] [address] Emergency Department Summary 03/24/18 2134 MR#: [id number] Acct: [id number] Name: RICHARD ROY Rep #: [id number] : 1945 72 From: Kenneth Ledezma MD [...] beginning of February. He has been seeing textile stylist for the past 3 weeks. States that [...] great toe. This note was generated with [employer] dictation software. It may contain incorrect words, [...] your Primary Care Provider. Call [facility] ([phone]) or report to the closest Emergency Room. Call 911 if necessary. 03/24/18 2258 <Electronically signed by Kenneth Ledezma MD> Date Kenneth Ledezma MD Cosigner Signature (If Indicated): Date CC: Dmitry Roberto III, MD CBC W/DIFF, AUTOMATED Collected: 03/24/2018 Status: F Source: [place] 10:00 PM [facility] REPOSITORY TYPE CODE TESTS RESULT OUT [...] DIFF OK Performed By: #### L100.0100 #### [facility] [address] [place], [address] BASIC METABOLIC Collected: 03/24/2018 Status: F Source: [place] PROFILE (BMP) 10:00 PM [facility] REPOSITORY TYPE CODE TESTS RESULT OUT [...] GAP 13 Performed By: #### L500.2500 #### [facility] [address] [facility] [place], [place], [address] LACTIC ACID Collected: 03/24/2018 Status: F Source: [place] 10:00 PM [facility] REPOSITORY Order Comment: Yes/No query for Sepsis Lactate Rule Y TYPE CODE TESTS RESULT OUT OF REFERENCE UNITS RANGE LAB L503.6005 0.4-2.0 mmol/L High LACTIC ACID 3.1 Result Comment: Critical Result(s) Called Jose ALVARENGA at: 22:42:06 03/24/2018 by: AUGUSTUS MANNING Performed By: #### L503.6005 #### [facility] [address] [facility] [place], [address] Observed: 03/24/2018 Status: F Source: [place] CULTURE, BLOOD (WB) 10:00 PM [facility] REPOSITORY GRAM STAIN = GRAM POSITIVE [...] 1 S (NF) indicates non-formulary drug at [facility]. Approval by Infectious Disease Specialist required before non-formulary drugs may be ordered and/or dispensed. * CLSI guidelines does not recommend testing of cephalosporins. This interpretation is deduced from Beta-lactam/penicillin results. Performed By: #### M200.1000 #### [facility] [address] [facility] [place], [place], [address] Observed: 03/24/2018 Status: F Source: [place] CULTURE, BLOOD (WB) 10:00 PM [facility] REPOSITORY GRAM STAIN = GRAM POSITIVE COCCI IN CLUSTERS IN AEROBIC AND ANAEROBIC BOTTLE RESULTS CALLED TO JUAN HERNANDEZ 03/25/18 1317 Julianna Guadalupe.REPORT READ BACK BY SAME. SEE [id number] FOR SENSITIVITY RESULTS. No anaerobic bacteria isolated. ORGANISM 1: Staphylococcus aureus Amount Growth Growth Performed By: #### M200.1000, M100.636 #### [facility] [address] [facility]. [place], [place], [address] Observed: 03/24/2018 Status: F Source: [facility] GPC ID 10:00 PM [facility] RE[facility] GPC ID RESULTS CALLED TO LIBBY BARBER 03/25/18 1616 Julianna Guadalupe. REPORT READ BACK BY SAME. Staphylococcus sp. Staphylococcus aureus Enterococcus sp. Not Detected Streptococcus spp. Not Detected Listeria spp Not Detected Irma/vanB Not Detected mecA Not Detected NAAT METHOD Testing was performed using nucleic acid amplification ORGANISM 1: Staphylococcus aureus Performed By: #### M200.1000, M100.636 #### [facility] [address] [place], [address] TOE(S) MIN 2 VIEWS Observed: 03/24/2018 Status: F Source: [place] 9:37 PM [facility] REPOSITORY [facility] Imaging Services [address] [place] [address] Toe(s) Min 2 Views MR#: [id number] Acct: [id number] Name: RICHARD ROY Rep #: [id number] : 1945 72 From: [place] MD PCP: Dmitry Roberto III, MD Status: REG ER Study: Toe(s) Min 2 Views Date of Exam: 03/24/18 Exam# [id number] Ordering Dr: Kenneth Ledezma MD STUDY: X-RAY [...] Dmitry Roberto III, MD; Kenneth Ledezma MD Automobile Dealer: Signed MRSA WOUND DNA BY Collected: 03/24/2018 Status: F Source: [place] PCR 9:33 PM [facility] REPOSIT[facility] TYPE CODE TESTS RESULT OUT OF RANGE REFERENCE UNITS LAB L8200.1100 Negative Normal MRSA Negative RESULT LAB L8200.1150 Negative High SA RESULT POSITIVE Performed By: #### L8200.1075 #### [facility] [address] [place], [address] Observed: 03/24/2018 Status: F Source: [place] CULTURE, DEEP WOUND 9:33 PM [facility] RE[facility] Gram Stain Gram Stain Rare [...] <=0.5 S (NF) indicates non-formulary drug at [facility]. Approval by Infectious Disease Specialist required [...] <=20 S (NF) indicates non-formulary drug at [facility]. Approval by Infectious Disease Specialist required before non-formulary drugs may be ordered and/or dispensed. Cult, Anaerobic Studies have confirmed that Anaerobic Gram Positive Cocci are routinely susceptible to: Penicillin/Ampicillin, Ampicillin/Sulbactam, Piperacillin/Tazobactam, Cefoxatin, Ertapenem, Imipenem, Meropenem and Metronidazole and vary in resistance to: Clindamycin and Moxifloxacin. ORGANISM 1: Anaerobic cocci Performed By: #### M100.1500 #### [facility] [address] [place], [address] PROGRESS Observed: 03/19/2018 Status: COMPLETED Source: [place] 9:00 AM [facility] REPOSITORY O ID: [id number] Author: Azucena (Rt) Coty Inmna Service: (none) Author Type: Gold Plater Type: Progress Notes Filed: 03/19/2018 9:00 AM [...] 3V AP/LAT/OBL Observed: 03/19/2018 Status: F Source: [facility] 8:59 AM [facility] REPOSITORY * * *Final Report* * * [...] ACUTE BONY ABNORMALITY. NO EVIDENCE OF OSTEOMYELITIS. Automobile Dealer: PSCB Transcribe Date/Time: Mar 19 2018 4:31P Dictated by : JOJO HOWARD MD This examination was interpreted and the report reviewed and electronically signed by: JOJO HOWARD MD on Mar 19 2018 4:36PM EST [id number] PROGRESS Observed: 03/19/2018 Status: COMPLETED Source: [place] 8:50 AM [facility] HNO ID: [id number] Author: Blaire De La Torre RN Service: [...] RN CNOV Observed: 03/19/2018 Status: COMPLETED Source: [place] 8:25 AM [facility] REPOSITORY Office Visit (PODIWS) RICHARD ROY ([id number]) 1945 M Date Time Provider Department 03/19/18 8:25 AM ARMINDA OBREGON During your visit today, we recorded the following information about you: Arminda Obregon DPM 03/19/2018 8:35 AM Signed ? Arminda Obregon DPM Department of Podiatry [address] [place] [address] Dept: [phone] Dept 03/19/2018 Follow Up Podiatric Office Visit: [...] disease, with long-term current use of insulin ([facility]) 06/20/2016 - Type II or unspecified type [...] La Torre RN Referring Provider: ARMINDA OBREGON [[id number]] Allergies As of Date: 03/19/2018 (No Known Allergies) Date Reviewed: 03/19/2018 Reviewed by: Blaire De La Torre RN - Fully Assessed Reason for Visit: Follow Up [171] Primary Visit Diagnosis:Diabetic ulcer of toe of right foot associated with type 2 diabetes mellitus, with fat layer exposed (HCC) [E11.621, L97.512] Order(s):XR FOOT GENERAL 3V AP/LAT/OBL RT [[id number]] Order #: [id number] FUTURE Prescriptions as of 03/19/2018 Sig: COLLAGENASE [...] 03/19/18 PROGRESS Observed: 03/19/2018 Status: COMPLETED Source: [place] 8:18 AM [facility] REPOSITORY [facility] ID: [id number] Author: Arminda Obregon Service: (none) Author Type: Physician Type: Progress Notes Filed: 03/19/2018 8:35 AM Note Text: ? Arminda Obregon DPM Department of Podiatry [address] [place] [address] Dept: [phone] Dept 03/19/2018 Follow Up Podiatric Office Visit: [...] disease, with long-term current use of insulin ([facility]) 06/20/2016 - Type II or unspecified type [...] DPM CNOV Observed: 03/12/2018 Status: COMPLETED Source: [place] 8:10 AM [facility] REPOSITORY Office Visit (PODIWS) RICHARD ROY ([id number]) 1945 M Date Time Provider Department 03/12/18 8:10 AM ARMINDA OBREGON PODIWS During your visit today, we recorded the following information about you: Arminda Obregon DPM 03/12/2018 8:38 AM Signed ? 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 Arminda Obregon DPM Department of Podiatry [address] [place] [address] Dept: [phone] Dept 03/12/2018 Follow Up Podiatric Office Visit: [...] 2 diabetes mellitus, with fat layer exposed ([facility]) (primary encounter diagnosis) (M79.5) Foreign body (FB) [...] DPM PROGRESS Observed: 03/06/2018 Status: COMPLETED Source: [place] 2:16 PM [facility] REPOSITORY HNO ID: [id number] Author: Coty Trinh (Rt) Service: (none) Author Type: Gold Plater Type: Progress Notes Filed: 03/06/2018 2:17 PM [...] 3V AP/LAT/OBL Observed: 03/06/2018 Status: F Source: [facility] 2:13 PM [facility] REPOSITORY * * *Final Report* * * [...] radiodensity soft tissues volar aspect great toe. Automobile Dealer: PSCB Transcribe Date/Time: Mar 06 2018 3:25P Dictated by : ELLI OWENS MD This examination was interpreted and the report reviewed and electronically signed by: ELLI OWENS MD on Mar 06 2018 3:28PM EST [id number] PROGRESS Observed: 03/06/2018 Status: COMPLETED Source: [place] 12:47 PM [facility] REPOSITORY HNO ID: [id number] Author: Arminda Obregon Service: (none) Author Type: Physician Type: Progress Notes Filed: 03/07/2018 7:16 AM Note Text: Arminda Obregon DPM Department of Podiatry [address] [facility] [address] Dept: [phone] Dept Diabetic Nail Care SUBJECTIVE: Follow up [...] 2 diabetes mellitus, with fat layer exposed ([facility]) PLAN: Patient was seen and evaluated. Nails [...] DPM CNOV Observed: 03/06/2018 Status: COMPLETED Source: [place] 12:40 PM [facility] REPOSITORY Office Visit (PODIWS) RICHARD ROY ([id number]) 1945 M Date Time Provider Department 03/06/18 12:40 PM ARMINDA OBREGON [place] During your visit today, we recorded the following information about you: Arminda Obregon DPM 03/07/2018 7:16 AM Signed Arminda Obregon DPM Department of Podiatry [facility] [address] [facility] [address] Dept: [phone] Dept Diabetic Nail Care SUBJECTIVE: Follow up [...] 2 diabetes mellitus, with fat layer exposed ([facility]) PLAN: Patient was seen and evaluated. Nails [...] Arminda Obregon DPM Referring Provider: ARMINDA OBREGON [[id number]] Allergies As of Date: 03/06/2018 (No Known [...] L97.512] Order(s):XR FOOT GENERAL 3V AP/LAT/OBL RT [[id number]] Order #: [id number] FUTURE collagenase (SANTYL) ointmentApply 1 application to [...] 03/07/18 PROTIME Collected: 12/26/2017 Status: F Source: [place] 10:00 AM [facility] REPOSITORY TYPE CODE TESTS RESULT OUT OF RANGE REFERENCE UNITS LAB PSEC 9.7-13.0 sec High PT Sec 31.1 LAB INR 0.9-1.3 High PT INR 3.2 Result Comment: Vitamin K Antagonist (VKA) Therapeutic Range: INR 2 to 3 (Target INR of 2.5) Note: For patients treated with VKA drugs, such as warfarin, the [place] College [employer] Chest Physicians 2012 Guideline recommends [...] Chest 2012, 141:7S-47S [place] RA, et al. [facility] 2017, 70: 252-289 Performed By: #### PT #### [facility] Office [address] [place], [place] [address] PROGRESS Observed: 12/12/2017 Status: COMPLETED Source: [place] 8:28 AM [facility] REPOSITORY HNO ID: [id number] Author: Arminda Obregon Service: (none) Author Type: Physician Type: Progress Notes Filed: 12/12/2017 8:39 AM Note Text: ? Arminda Obregon DPM Department of Podiatry [address] [place] [address] Dept: [phone] Dept 12/12/2017 Follow Up Podiatric Office Visit: [...] Past Histories independently gathered by the clinical data support specialist and the remaining scribed note accurately describes my personal service to the patient. Arminda Obregon DPM CNOV Observed: 12/12/2017 Status: COMPLETED Source: [place] 7:55 AM [facility] REPOSITORY Office Visit (PODIWS) RICHARD ROY ([id number]) 1945 M Date Time Provider Department 12/12/17 7:55 AM ARMINDA OBREGON PODIWS During your visit today, we recorded the following information about you: Arminda Obregon DPM 12/12/2017 8:39 AM Signed ? Arminda Obregon DPM Department of Podiatry [address] [facility] [address] Dept: [phone] Dept 12/12/2017 Follow Up Podiatric Office Visit: [...] Past Histories independently gathered by the clinical data support specialist and the remaining scribed note accurately describes my personal service to the patient. Arminda Obregon DPM Referring Provider: ARMINDA OBREGON [[id number]] Allergies As of Date: 12/12/2017 (No Known [...] 11/28/2017 Status: COMPLETED Source: [place] 11:25 AM [facility] REPOSITORY Office Visit (PODIWS) RICHARD ROY ([id number]) 1945 M Date Time Provider Department 11/28/17 11:25 AM [place], ARMINDA PODIWS During your visit today, we recorded the following information about you: Arminda Obregon DPM 11/28/2017 10:12 PM Signed Arminda Obregon DPM Department of Podiatry [address] [facility] [address] Dept: [phone] Dept Diabetic Nail Care SUBJECTIVE: Follow up [...] Past Histories independently gathered by the clinical data support specialist and the remaining scribed note accurately describes my personal service to the patient. WINSOME Young RN 11/28/2017 11:41 AM Signed Schedule PVR Follow up in 2 weeks for blister, 3 months for nail care Referring Provider: ARMINDA OBREGON [[id number]] Allergies As of Date: 11/28/2017 (No Known [...] [L85.9] Order(s):PVR ANK PRESS [facility] [[id number]] Order #: [id number] FUTURE Prescriptions as of 11/28/2017 Sig: INSULIN [...] 11/28/17 PROGRESS Observed: 11/28/2017 Status: COMPLETED Source: [place] 11:24 AM [facility] HNO ID: [id number] Author: Arminda Obregon Service: (none) Author Type: Physician Type: Progress Notes Filed: 11/28/2017 10:12 PM Note Text: Arminda Obregon DPM Department of Podiatry [address] [facility] [address] Dept: [phone] Dept Diabetic Nail Care SUBJECTIVE: Follow up [...] Past Histories independently gathered by the clinical data support specialist and the remaining scribed note accurately describes my personal service to the patient. Arminda Obregon DPM PROGRESS Observed: 11/27/2017 Status: COMPLETED Source: [place] 1:07 PM [facility] REPOSITORY HNO ID: [id number] Author: Dmitry Roberto III Service: (none) Author [...] MD PROTIME Collected: 11/26/2017 Status: F Source: [place] 8:31 AM [facility] REPOSITORY TYPE CODE TESTS RESULT OUT OF RANGE REFERENCE UNITS LAB PSEC 9.7-13.0 sec High PT Sec 20.5 LAB INR 0.9-1.3 High PT INR 2.1 Result Comment: Vitamin K Antagonist (VKA) Therapeutic Range: INR 2 to 3 (Target INR of 2.5) Note: For patients treated with VKA drugs, such as warfarin, the [place] [employer] Physicians 2012 Guideline recommends [...] Chest 2012, 141:7S-47S [place] RA, et al. [facility] 2017, 70: 252-289 Performed By: #### PT, BMP, LIPB, HBA1C #### [facility] [address] [address] BASIC METABOLIC PANL Collected: 11/26/2017 Status: F Source: [place] 8:31 AM [facility] REPOSITORY TYPE CODE TESTS RESULT OUT OF REFERENCE UNITS RANGE LAB GLU 74-99 mg/dL High Glucose 241 Result Comment: The [place] Diabetes Association (ADA) provides guidance for cutoff [...] Standards of Medical Care in Diabetes 2016, [place] [employer]. Diabetes Care. 2016.39(Suppl 1). LAB [...] By: #### PT, BMP, LIPB, HBA1C #### [facility] [address] [place] [address] LIPID PANEL, BASIC Collected: 11/26/2017 Status: F Source: [place] 8:31 AM [facility] REPOSITORY TYPE CODE TESTS RESULT OUT OF [...] Desk Reference: National Heart, Lung, and Blood Gould. National Institutes of Health. 2001: NIH Publication No. 01-3305. 2. An International Atherosclerosis Society position paper: global recommendations for the management of dyslipidemia: executive summary, Atherosclerosis. 2014: 232(2):410-413. Performed By: #### PT, BMP, LIPB, HBA1C #### [facility] Office [address] [place] [id number] HEMOGLOBIN A1C Collected: 11/26/2017 Status: F Source: [place] 8:31 AM [facility] REPOSITORY TYPE CODE TESTS RESULT OUT OF REFERENCE UNITS RANGE LAB HGBA1C 4.3-5.6 % High Hemoglobin A1c 8.1 LAB HBA0 mg/dL Est. Average Glucose 186 Result Comment: eAG: (Estimated average glucose) is a calculated value from HgbA1c and is marketing development representative of the average blood glucose level in the last 2-3 month period. Performed By: #### PT, BMP, LIPB, HBA1C #### [facility] Office [address] [place], [place] [address] PROGRESS Observed: 11/26/2017 Status: COMPLETED Source: [place] 8:03 AM [facility] REPOSITORY HNO ID: [id number] Author: Dmitry Roberto III Service: (none) Author [...] disease, with long-term current use of insulin ([facility]) 06/20/2016 - Type II or unspecified type diabetes mellitus without mention of complication, not stated as uncontrolled Current Outpatient Prescriptions on File Prior to Visit: metFORMIN ER (GLUCOPHAGE XR) 500 mg 24 hr tablet TAKE 2 TABLETS BY MOUTH TWICE DAILY WITH MEALS. blood sugar diagnostic ([employer] ULTRA TEST) test strip Test blood sugar(s) [...] Lucio MD Observed: 11/26/2017 Status: COMPLETED Source: [place] 8:00 AM [facility] REPOSITORY Office Visit (FAMPWS) RICHARD ROY ([id number]) 1945 M Date Time Provider Department 11/26/17 [...] disease, with long-term current use of insulin ([facility]) 06/20/2016 - Type II or unspecified type diabetes mellitus without mention of complication, not stated as uncontrolled Current Outpatient Prescriptions on File Prior to Visit: metFORMIN ER (GLUCOPHAGE XR) 500 mg 24 hr tablet TAKE 2 TABLETS BY MOUTH TWICE DAILY WITH MEALS. blood sugar diagnostic ([employer] ULTRA TEST) test strip Test blood sugar(s) [...] coming return to office 3-6 mo DOMINGO Luico MD, Frank A III 11/26/2017 8:15 AM Signed PLAN: healthy weight losing diet and regular exercise eat less sugar, bread, potato, pasta, rice, corn, corn syrup, saturated fats await lab results eye exam up coming return to office 3-6 mo Dmitry Roberto III MD Referring Provider: DMITRY ROBERTO III [[id number]] Allergies As of Date: 11/26/2017 (No Known Allergies) Date Reviewed: 11/26/2017 Reviewed by: Annette Garnett ([facility])JENNIFER - Fully Assessed Reason for Visit: 3 [...] 11/26/17 PROTIME Collected: 10/30/2017 Status: F Source: [place] 12:03 PM [facility] REPOSITORY TYPE CODE TESTS RESULT OUT OF RANGE REFERENCE UNITS LAB PSEC 9.7-13.0 sec High PT Sec 24.8 LAB INR 0.9-1.3 High PT INR 2.5 Result Comment: Vitamin K Antagonist (VKA) Therapeutic Range: INR 2 to 3 (Target INR of 2.5) Note: For patients treated with VKA drugs, such as warfarin, the [place] [employer] Chest Physicians 2012 Guideline recommends [...] Chest 2012, 141:7S-47S [place] RA, et al. [facility] 2017, 70: 252-289 Performed By: #### PT #### [facility] True Office [address] [place], [place] [address] PROTIME Collected: 10/09/2017 Status: F Source: [place] 1:36 PM [facility] REPOSITORY TYPE CODE TESTS RESULT OUT OF RANGE REFERENCE UNITS LAB PSEC 9.7-13.0 sec High PT Sec 29.6 LAB INR 0.9-1.3 High PT INR 3.1 Result Comment: Vitamin K Antagonist (VKA) Therapeutic Range: INR 2 to 3 (Target INR of 2.5) Note: For patients treated with VKA drugs, such as warfarin, the [place] [employer] Chest Physicians 2012 Guideline recommends [...] Chest 2012, 141:7S-47S Alexandria JETT et al. [facility] 2017, 70: 252-289 Performed By: #### PT #### [facility] [address] [place], [place] [address] PROTIME Collected: 09/11/2017 Status: F Source: [place] 10:20 AM [facility] REPOSITORY TYPE CODE TESTS RESULT OUT OF RANGE REFERENCE UNITS LAB PSEC 9.7-13.0 sec High PT Sec 19.9 LAB INR 0.9-1.3 High PT INR 2.0 Result Comment: Vitamin K Antagonist (VKA) Therapeutic Range: INR 2 to 3 (Target INR of 2.5) Note: For patients treated with VKA drugs, such as warfarin, the [place] College [employer] Chest Physicians 2012 Guideline recommends [...] Chest 2012, 141:7S-47S [place] JETT et al. [facility] 2017, 70: 252-289 Performed By: #### PT #### [facility] True Office [address] [place], [place] [address] PROTIME Collected: 08/19/2017 Status: F Source: [place] 8:45 AM [facility] REPOSITORY TYPE CODE TESTS RESULT OUT OF RANGE REFERENCE UNITS LAB PSEC 9.7-13.0 sec High PT Sec 17.2 LAB INR 0.9-1.3 High PT INR 1.7 Result Comment: Vitamin K Antagonist (VKA) Therapeutic Range: INR 2 to 3 (Target INR of 2.5) Note: For patients treated with VKA drugs, such as warfarin, the [place] [employer] Chest Physicians 2012 Guideline recommends [...] Chest 2012, 141:7S-47S [place] JETT et al. [facility] 2017, 70: 252-289 Performed By: #### PT #### [facility] Office [address] [place], [place] [address] PROGRESS Observed: 08/19/2017 Status: COMPLETED Source: [place] 8:05 AM [facility] REPOSITORY HNO ID: [id number] Author: Dmitry Roberto III Service: (none) Author [...] and little exercise. Recent foot exam by textile stylist normal per patient. No chest pain, angina, , abd pain, change in BM PAST MEDICAL HISTORY Diagnosis Date - Cholelithiasis 09/25/2013 - Diabetes mellitus with neurological manifestation ([facility]) 09/08/2010 - Diverticulosis of colon (without mention of hemorrhage) - Essential hypertension, benign 10/28/2012 - Hyperlipidemia LDL goal < 100 04/01/2012 - Pulmonary embolus, right ([facility]) 09/25/2013 - Status post aortic valve repair 2004 - Thoracic aneurysm without mention of rupture - Type 2 diabetes mellitus with stage 3 chronic kidney disease, with long-term current use of insulin ([facility]) 06/20/2016 - Type II or unspecified type [...] BY MOUTH ONCE DAILY. blood sugar diagnostic ([employer] ULTRA TEST) test strip Test blood sugar(s) [...] Ref Range: 1.00 - 4.00 k/uL 2.49 [place]% Latest Units: % 6.0 Abs [place] Latest Ref Range: <0.87 k/uL 0.64 Eosin% [...] medications INR today--standing order follow up with textile stylist and director mba return to office 3 mos with labs DOMINGO Lucio MD, III MD PROGRESS Observed: 08/16/2017 Status: COMPLETED Source: [place] 4:30 PM [facility] REPOSITORY HNO ID: [id number] Author: Dmitry Roberto III Service: (none) Author Type: Physician Type: Progress Notes Filed: 08/16/2017 4:30 PM Note Text: , The lab results are not good. We will discuss in more detail at the upcoming appointment. Dmitry Roberto III, MD, [facility] PROGRESS Observed: 08/15/2017 Status: COMPLETED Source: [place] 2:54 PM [facility] REPOSITORY HNO ID: [id number] Author: Arminda Obregon Service: (none) Author Type: [...] DPM PROGRESS Observed: 08/15/2017 Status: COMPLETED Source: [place] 2:26 PM [facility] REPOSITORY HNO ID: [id number] Author: Blaire De La Torre RN Service: (none) Author Type: (none) Type: Progress Notes Filed: 08/15/2017 2:56 PM Note Text: Pt reports that his blood sugar was 210 this morning. CBC AND DIFFERENTIAL Collected: 08/15/2017 Status: F Source: [place] 9:21 AM [facility] REPOSITORY TYPE CODE TESTS RESULT OUT OF [...] k/uL Abs Lymph 2.49 LAB AMONO % Rac[place]% 6.0 LAB AAMONO <0.87 k/uL Abs [place] 0.64 LAB AEOS % Eosin% 4.4 LAB AAEOS <0.46 k/uL Abs High Eosin 0.47 LAB ABASO % Baso% 0.7 LAB AABASO <0.11 k/uL Abs Baso 0.08 LAB AUNRBC 0 /100 WBC NRBCs 0.0 LAB ABNRBC <0.01 k/uL Absolute nRBC <0.01 LAB DTYP DTYPE Auto Diff Performed By: #### CBCDIF, HBA1C, BMP, LIPB, B12 #### [facility] True Office [address] [place] [id number] HEMOGLOBIN A1C Collected: 08/15/2017 Status: F Source: [place] 9:21 AM [facility] REPOSITORY TYPE CODE TESTS RESULT OUT OF REFERENCE UNITS RANGE LAB HGBA1C 4.3-5.6 % High Hemoglobin A1c 8.9 LAB HBA0 mg/dL Est. Average Glucose 209 Result Comment: eAG: (Estimated average glucose) is a calculated value from HgbA1c and is marketing development representative of the average blood glucose level in the last 2-3 month period. Performed By: #### CBCDIF, HBA1C, BMP, LIPB, B12 #### [facility] Office [address] [id number] BASIC METABOLIC PANL Collected: 08/15/2017 Status: F Source: [place] 9:21 AM [facility] REPOSITORY TYPE CODE TESTS RESULT OUT OF REFERENCE UNITS RANGE LAB GLU 74-99 mg/dL High Glucose 245 Result Comment: The [place] Diabetes Association (ADA) provides guidance for cutoff [...] Standards of Medical Care in Diabetes 2016, [place] [employer]. Diabetes Care. 2016.39(Suppl 1). LAB [...] #### CBCDIF, HBA1C, BMP, LIPB, B12 #### [facility] [address] [place], [place] [address] LIPID PANEL, BASIC Collected: 08/15/2017 Status: F Source: [place] 9:21 AM [facility] REPOSITORY TYPE CODE TESTS RESULT [...] Desk Reference: National Heart, Lung, and Blood Gould. National Institutes of Health. 2001: NIH Publication No. 01-3305. 2. An International Atherosclerosis Society position paper: global recommendations for the management of dyslipidemia: executive summary, Atherosclerosis. 2014: 232(2):410-413. Performed By: #### CBCDIF, HBA1C, BMP, LIPB, B12 #### [facility] True Office [address] [place], [place] [address] VITAMIN B12 Collected: 08/15/2017 Status: F Source: [place] 9:21 AM [facility] REPOSITORY TYPE CODE TESTS RESULT OUT OF REFERENCE UNITS RANGE LAB B12 232-1245 pg/mL Vitamin B12 312 Performed By: #### CBCDIF, HBA1C, BMP, LIPB, B12 #### [facility] True Office [address] [place], [place] [address] ALBUMIN/CREAT RATIO Collected: 08/15/2017 Status: F Source: [place] 9:18 AM [facility] REPOSITORY TYPE CODE TESTS RESULT [...] 1995, 25:107) Performed By: #### UACR #### [facility] [address] [place] [id number] ALLERGIES ALLERGIES DATE TYPE / CODE NAME / CODE REACTION SEVERITY SOURCE 05/22/2018 Drug propofol/[id number] Other Unknown [facility] Allergy/416 528(RXNORM) Hospital 891238(SNOM Repository ED CT) 03/24/2018 Drug No Known Unknown [facility] Allergy/416 Allergies/D32627 Hospital 269488(SNOM 0388(RXNORM) Repository ED CT) Drug NO KNOWN [facility] Class/52562 ALLERGIES Main [place] 1003(SNOMED Repository CT) ENCOUNTERS ENCOUNTERS ADMIT/DISCHARGE ACCOUNT ADMITTING ENCOUNTER LOCATION SOURCE NUMBER CLASS 07/24/2018/07/24/19 [id number] Ambulatory [address] Repository 07/24/2018/07/25/[id number] Repository 07/15/2018 [id number] [facility] Hospital ing:[employer] Repository 07/07/2018 [id number] Ambulatory [facility] ing:[facility] Repository 07/02/2018 [id number] Ambulatory [facility] ing:[facility] Repository 06/27/2018/06/27/20 [id number] Ambulatory [address] Repository 06/24/2018/06/24/20 [id number] Ambulatory [address] Repository 06/24/2018/06/24/20 [id number] Ambulatory [address] Repository 06/23/2018/06/23/[id number] ing:HHLAB Repository 06/17/2018/06/18/20 [id number] Ambulatory [address] Repository 06/10/2018/06/11/20 [id number] Ambulatory [address] Repository 06/09/2018/06/13/20 [id number] Ambulatory [address] ing:HHLAB Repository 06/04/2018/06/06/20 [id number] Ambulatory [address] Repository 06/03/2018/06/06/20 [id number] Ambulatory [address] Repository 05/30/2018/05/30/20 [id number] Ambulatory [address] Repository 05/30/2018/06/02/20 [id number] Ambulatory [address] Repository 05/25/2018 [id number] Ambulatory BMSBuilding:[facility] Repository 05/22/2018/05/29/20 [id number] Landen Blanco Inpatient [address] ing:AK4Fqtu: Repository AC578Cef: 1 05/22/2018 [id number] Landen Blanco Ambulatory [facility] Repository 05/22/2018 [id number] Landen Blanco Ambulatory [facility] [place] [facility] Repository 05/22/2018 [id number] Landen Blanco Ambulatory [facility] [place] Repository 05/22/2018 [id number] Landen Blanco Ambulatory [facility] [place] Repository 05/22/2018 [id number] Landen Blanco Ambulatory [facility] [place] Repository 05/22/2018 [id number] Landen Blanco Ambulatory [facility] [place] Repository 05/22/2018 [id number] Landen Blanco Ambulatory [facility] [place] Repository 05/22/2018 [id number] Landen Blanco Ambulatory [facility] [place] Repository 05/22/2018/11/15 [id number] Ambulatory BMSBuilding:B [place] [facility] [place].[facility] Repository 05/22/2018/05/23/20 [id number] Ambulatory [address] Repository 05/13/2018/05/14/20 [id number] Ambulatory [address] Repository 05/13/2018/05/13/20 [id number] Ambulatory [address] Repository 05/13/2018/05/13/20 [id number] Ambulatory [address] Repository 05/13/2018/05/14/20 [id number] Ambulatory [address] Repository 05/12/2018/05/13/20 [id number] Ambulatory [address] Repository 05/07/2018 [id number] Ambulatory [facility] Hospital[facility] Hospital ing:OLS.ACH Repository 05/06/2018/05/07/20 [id number] Ambulatory [address] Repository 05/05/2018 [id number] Ambulatory [facility] HospitalBuild Hospital ing:OLS.ACH Repository 04/30/2018 [id number] Ambulatory [facility] Hospital[facility] Hospital ing:OLS.ACH Repository 04/29/2018/04/30/20 [id number] Ambulatory [address] Repository 04/23/2018 [id number] Ambulatory [facility] Hospital[facility] Hospital ing:OLS.ACH Repository 04/22/2018/04/23/20 [id number] Ambulatory [address] Repository 04/16/2018 [id number] Ambulatory [facility] Hospital[facility] Hospital ing:OLS.ACH Repository 04/15/2018/04/15/20 [id number] Ambulatory [address] Repository 04/14/2018 [id number] Ambulatory [facility] Hospital[facility] Hospital ing:OLS.ACH Repository 04/10/2018/04/10/20 [id number] Ambulatory [address] Repository 04/10/2018/04/10/20 [id number] Ambulatory [address] Repository 04/09/2018 [id number] Ambulatory [facility] Hospital[facility] Hospital ing:OLS.ACH Repository 04/03/2018/04/03/20 [id number] Ambulatory [address] Repository 04/02/2018 [id number] Ambulatory [facility] ing:OLS.ACH Repository 03/28/2018 [id number] [facility] 03/24/2018/04/01/20 [id number] Jesus Burnham Inpatient [address] Hospital ing:MJ9Cyzd: Repository AG664Ndz: 1 03/24/2018 [id number] Jesus Burnham Ambulatory BMSBuilding:[facility] [place] Repository 03/24/2018 [id number] Jesus Burnham Ambulatory BMSBuilding:[facility] Repository 03/24/2018 [id number] Jesus Burnham Ambulatory BMSBuilding:[facility] [place] Repository 03/24/2018 [id number] Jesus Burnham Ambulatory BMSBuilding:[facility] Repository 03/24/2018 [id number] Jesus Burnham Ambulatory BMSBuilding:[facility] Repository 03/24/2018 [id number] Jesus Burnham Ambulatory BMSBuilding:[facility] Repository 03/24/2018 [id number] Jesus Burnham Ambulatory BMSBuilding:[facility] Repository 03/24/2018 [id number] Jesus Burnham Ambulatory BMSBuilding:[facility] Repository 03/24/2018 [id number] Jesus Burnham Ambulatory BMSBuilding:[facility] [place] Repository 03/24/2018 [id number] Jesus Burnham Ambulatory BMSBuilding:[facility] [place] Repository 03/24/2018/04/01/20 [id number] Ambulatory BMSBuilding:Freddy [address]ramer[address] Repository 03/19/2018/03/19/20 [id number] Ambulatory [address] Repository 03/19/2018/03/24/20 [id number] Ambulatory [address] Repository 03/12/2018/03/14/20 [id number] Ambulatory [facility] [place] Repository 03/06/2018/03/06/20 [id number] Ambulatory [facility] [place] Repository 03/06/2018/03/07/20 [id number] Ambulatory [facility] [place] Repository 12/26/2017/12/27/19 [id number] Ambulatory [facility] [place] Repository 12/12/2017/12/14/19 [id number] Ambulatory [facility] [place] Repository 12/02/2017/12/03/19 [id number] Ambulatory [facility] [place] Repository 11/28/2017/12/03/19 [id number] Ambulatory [facility] [place] Repository 11/26/2017/11/27/19 [id number] Ambulatory [facility] [place] Repository 11/26/2017/11/29/19 [id number] Ambulatory [facility] [place] Repository 10/30/2017/10/31/19 [id number] Ambulatory [facility] [place] Repository 10/09/2017/10/10/19 [id number] Ambulatory [facility] [place] Repository 09/11/2017/09/11/19 [id number] Ambulatory [facility] [place] Repository 08/19/2017/08/19/19 [id number] Ambulatory [facility] [place] Repository 08/19/2017/08/19/19 [id number] Ambulatory [facility] [place] Repository 08/15/2017/08/19/19 [id number] Ambulatory [facility] [place] Repository 08/15/2017/08/15/19 [id number] Ambulatory [facility] [place] Repository PAYERS PAYERS ENCOUNTER GUARANTOR PAYER SUBSCRIBER SOURCE 07/15/2018 RICHARD Bonilla Primary RICHARD Caputo [id number] Insurance:MEDICARE HORSTDOB: [facility] PART A BPolicy [id number] [place] Number: Repository [address]Nem: [phone]) [id number] [phone] () Date:2018-06-02 07/15/2018 Secondary RICHARD [place] Insurance:EVERENCE HORSTDOB: [facility] ASSOCIATION INCPolicy [id number] [facility] Number: Repository [id number] Date:1954-81-[address] [place] [address]PH: 07/15/2018 Tertiary NOT GIVENUNK [place] Insurance:SELF PAY [facility] Number: Effective Repository Date:2018-07-14 07/07/2018 RICHARD Bonilla Primary RICHARD Bonilla [place] [id number] Insurance:MEDICARE HORSTDOB: [facility] [id number] Number: Repository [address]Ltv: 330 [id number] [phone] (HP) Date:2018-07-02 07/07/2018 Secondary RICHARD Bonilla [place] Insurance:EVERENCE HORSTDOB: [facility] [id number] Hospital Number: Repository [id number] Date:6575-02-67RR [facility] [address] [address]AD: 07/07/2018 Tertiary NOT GIVENUNK [place] Insurance:SELF PAY [facility] Number: Effective Repository Date:2018-07-02 07/02/2018 RICHARD Bonilla Primary RICHARD Bonilla [place] [id number] Insurance:MEDICARE HORSTDOB: [facility] A [facility] [id number], [place] Number: Repository [address]Irm: 330 [id number] [phone] (HP) Date:2018-07-01 07/02/2018 Secondary RICHARD Bonilla [place] Insurance:EVERENCE HORSTDOB: [facility] [id number] Hospital Number: Repository [id number] Date:7997-45-02HX [address] [address]QE: 07/02/2018 Tertiary NOT GIVENUNK [place] Insurance:SELF PAY [facility] Number: Effective Repository Date:2018-07-01 06/23/2018 RICHADR Bonilla Primary RICHARD Bonilla [place] [id number] Insurance:MEDICARE HORSTDOB: [facility] [id number] Number: Repository [address]Ufg: [phone] [id number] [phone] (HP) Date:2018-06-02 06/23/2018 Secondary RICHARD Bonilla [place] Insurance:EVERENCE HORSTDOB: [facility] [id number] Hospital Number: Repository [id number] Date:0995-04-87[address], [place] [address]AN: 06/23/2018 Tertiary NOT GIVENUNK [place] Insurance:SELF PAY [facility] Number: Effective Repository Date:2018-06-14 06/09/2018 RICHARD Bonilla Primary RICHARD Bonilla [place] [id number] Insurance:MEDICARE HORSTDOB: [facility] PART A [facility] [id number] Number: Repository [address]Tsu: 330 [id number] [phone] () Date:2018-06-02 06/09/2018 Secondary RICHARD Bonilla [place] Insurance:EVERENCE HORSTDOB: [facility] [id number] Hospital Number: Repository [id number] Date:8467-20-11JV [address], [place] [address]FA: 06/09/2018 Tertiary NOT GIVENUNK [place] Insurance:SELF PAY [facility] Number: Effective Repository Date:2018-06-02 05/25/2018 RICHARD oBnilla Primary RICHARD [place] [id number] Insurance:MEDICARE HORSTDOB: [facility] PART A [facility] [id number], [place] Number: Repository [address]Vit: 330 [id number] [phone] (HP) Date:2018-05-22 05/25/2018 Secondary RICHARD Bonilla [place] Insurance:EVERENCE HORSTDOB: [facility] [id number] Hospital Number: Repository [id number] Date:2962-56-84ZN [address] [address]UA: 05/25/2018 Tertiary NOT GIVENUNK [place] Insurance:SELF PAY [facility] Hospital Number: Effective Repository Date:2018-05-22 05/22/2018 RICHARD Bonilla Primary RICHARD Bonilla [place] [id number] Insurance:MEDICARE HORSTDOB: [facility] [id number] Number: Repository [address]Nad: 330 [id number] [phone] (HP) Date:2018-05-22 05/22/2018 Secondary K [place] Insurance:EVERENCE HORSTDOB: [facility] [id number] Hospital Number: Repository [id number] Date:4592-33-26GD [address], [place] [address]FF: 05/22/2018 Tertiary NOT GIVENUNK [place] Insurance:SELF PAY [facility] Number: Effective Repository Date:2018-05-22 05/22/2018 K Primary RICHARD Bonilla [place] [id number] Insurance:MEDICARE HORSTDOB: [facility] [id number], [place] Number: Repository [address]Phi: 330 [id number] [phone] () Date:2018-05-22 05/22/2018 Secondary K [place] Insurance:EVERENCE HORSTDOB: [facility] [id number] Hospital Number: Repository [id number] Date:0448-96-84NJ [address], [place] [address]VL: 05/22/2018 Tertiary NOT GIVENUNK [place] Insurance:SELF PAY [facility] Number: Effective Repository Date:2018-05-22 05/22/2018 K Primary Irene [place] [id number] Insurance:MEDICARE HORSTDOB: [facility] [id number], [place] Number: Repository [address]Ajj: 330 [id number] [phone] (HP) Date:2018-05-22 05/22/2018 Secondary K [place] Insurance:EVERENCE HORSTDOB: [facility] [id number] Hospital Number: Repository [id number] Date:2611-21-93YY [address], [place] [address]ME: 05/22/2018 Tertiary NOT GIVENUNK [place] Insurance:SELF PAY [facility] Hospital Number: Effective Repository Date:2018-05-22 05/22/2018 RICHARD Bonilla Primary RICHARD Bonilla [place] [id number] Insurance:MEDICARE HORSTDOB: [facility] [id number], [place] Number: Repository [id number]: 330 [id number] [phone] (HP) Date:2018-05-22 05/22/2018 Secondary RICHARD Bonilla [place] Insurance:EVERENCE HORSTDOB: [facility] [id number] Hospital Number: Repository [id number] Date:2764-96-03SU[address] [address]IP: 05/22/2018 Tertiary NOT GIVENUNK [place] Insurance:SELF PAY [facility] [place] Number: Effective Repository Date:2018-05-22 05/22/2018 RICHARD Bonilla Primary RICHARD Bonilla [place] [id number] Insurance:MEDICARE HORSTDOB: [facility] [id number], [place] Number: Repository [address]Zzj: 330 [id number] [phone] (HP) Date:2018-05-22 05/22/2018 Secondary RICHARD Bonilla [place] Insurance:EVERENCE HORSTDOB: [facility] [id number] Hospital Number: Repository [id number] Date:0564-06-28VP [facility] [address] [address]JE: 05/22/2018 Tertiary NOT GIVENUNK [place] Insurance:SELF PAY [facility] Hospital Number: Effective Repository Date:2018-05-22 05/22/2018 RICHARD Bonilla Primary RICHARD Bonilla [place] [id number] Insurance:MEDICARE HORSTDOB: [facility] [id number], [place] Number: Repository [id number]: 330 [id number] [phone] (HP) Date:2018-05-22 05/22/2018 Secondary K [place] Insurance:EVERENCE HORSTDOB: [facility] [id number] Hospital Number: Repository [id number] Date:5137-91-03JF[address] [place] [address]AE: 05/22/2018 Tertiary NOT GIVENUNK [place] Insurance:SELF PAY [facility] [place] Number: Effective Repository Date:2018-05-22 05/22/2018 RICHARD Bonilla Primary RICHARD Bonilla [place] [id number] Insurance:MEDICARE HORSTDOB: [facility] [id number] Number: Repository [phone]: ([phone]) [id number] [phone] (HP) Date:2018-05-22 05/22/2018 Secondary RICHARD Bonilla [place] Insurance:EVERENCE HORSTDOB: [facility] [id number] Hospital Number: Repository [id number] Date:8830-02-02SI [address] [address]QE: 05/22/2018 Tertiary NOT GIVENUNK [place] Insurance:SELF PAY [facility] Number: Effective Repository Date:2018-05-22 05/22/2018 RICHARD Bonilla Primary RICHARD Bonilla [place] [id number] Insurance:MEDICARE HORSTDOB: [facility] [id number], [place] Number: Repository [id number]: (562) [id number] [phone] (HP) Date:2018-05-22 05/22/2018 Secondary RICHARD Bonilla [place] Insurance:EVERENCE HORSTDOB: [facility] [id number] Hospital Number: Repository [id number] Date:2582-98-85IG [facility] [address] [address]XS: 05/22/2018 Tertiary NOT GIVENUNK [place] Insurance:SELF PAY [facility] Number: Effective Repository Date:2018-05-22 05/22/2018 RICHARD Bonilla Primary RICHARD Bonilla [place] [id number] Insurance:MEDICARE HORSTDOB: [facility] [id number], [place] Number: Repository [id number]: ([phone]) [id number] [phone] (HP) Date:2018-05-22 05/22/2018 Secondary RICHARD Bonilla [place] Insurance:EVERENCE HORSTDOB: [facility] [id number] Hospital Number: Repository [id number] Date:1485-13-36EM [address] [place] [address]HX: 05/22/2018 Tertiary NOT GIVENUNK [place] Insurance:SELF PAY [facility] Number: Effective Repository Date:2018-05-22 05/22/2018 RICHARD Bonilla Primary RICHARD Bonilla [place] [id number] Insurance:MEDICARE HORSTDOB: [facility] PART A [facility] [id number] Number: Repository [address]Qnj: 330 [id number] [phone] (HP) Date:2018-05-22 05/22/2018 Secondary RICHARD Bonilla [place] Insurance:EVERENCE HORSTDOB: [facility] [id number] Hospital Number: Repository [id number] Date:9533-74-60ZU [address] [place] [address]AW: 05/22/2018 Tertiary NOT GIVENUNK [place] Insurance:SELF PAY [facility] Number: Effective Repository Date:2018-05-22 05/07/2018 RICHARD Bonilla Primary RICHARD Bonilla [place] [id number] Insurance:EVERENCE HORSTDOB: [facility] [id number], [place] Number: Repository [id number]: 330 [id number] [phone] (HP) Date:4059-68-93HT [address] [place] [address]LL: 05/07/2018 Secondary RICHARD Bonilla [place] Insurance:MEDICARE HORSTDOB: [facility] PART A [facility] [id number] Hospital Number: Repository [id number] Date:2018-05-07 05/07/2018 Tertiary NOT GIVENUNK [place] Insurance:SELF PAY [facility] Number: Effective Repository Date:2018-05-07 05/05/2018 RICHARD Bonilla Primary NOT GIVENUNK [place] [id number] Insurance:SELF PAY [place] Number: Effective Repository [phone]: (330) Date:2018-05-05 [phone] () 04/30/2018 RICHARD Bonilla Primary NOT GIVENUNK [place] [id number] Insurance:SELF PAY [place] Number: Effective Repository 15359Xzx: (330) Date:2018-04-30 [phone] () 04/23/2018 RICHARD Bonilla Primary NOT GIVENUNK [place] [id number] Insurance:SELF PAY [place] Number: Effective Repository 25[address]Uuk: (330) Date:2018-04-23 [phone] () 04/16/2018 RICHARD Bonilla Primary NOT GIVENUNK [place] [id number] Insurance:SELF PAY [place] Number: Effective Repository [phone]: (330) Date:2018-04-16 [phone] () 04/14/2018 RICHARD Bonilla Primary NOT GIVENUNK [place] [id number] Insurance:SELF PAY [place] Number: Effective Repository [phone]: (330) Date:2018-04-14 [phone] () 04/09/2018 RICHARD Bonilla Primary NOT GIVENUNK [place] [id number] Insurance:SELF PAY [place] Number: Effective Repository 81612Xnb: (330) Date:2018-04-09 [phone] () 04/02/2018 RICHARD Bonilla Primary NOT GIVENUNK [place] [id number] Insurance:SELF PA[place] Number: Effective Repository [phone]: (330) Date:2018-04-02 [phone] () 03/28/2018 RICHARD Bonilla Primary RICHARD Bonilla [place] [id number] Insurance:MEDICARE HORSTDOB: [facility] PART A BPolicy [id number] Number[place] Repository 217[address]Edz: (330 [id number] [phone] (HP) Date:2018-03-24 03/28/2018 Secondary RICHARD Bonilla [place] Insurance:EVERENCE HORSTDOB: [facility] [id number] Hospital Number: Repository [id number] Date:0738-63-52TA [address], [place] [address]IY: 03/28/2018 Tertiary NOT GIVENUNK [place] Insurance:SELF PAY [facility] Hospital Number: Effective Repository Date:2018-03-28 03/24/2018 K Primary RICHARD Bonilla [place] [id number] Insurance:MEDICARE HORSTDOB: [facility] [id number] Number: Repository [address]Nad: 330 [id number] [phone] () Date:2018-03-24 03/24/2018 Secondary K [place] Insurance:EVERENCE HORSTDOB: [facility] [id number] Hospital Number: Repository [id number] Date:2854-08-90JF [address], [place] [address]MX: 03/24/2018 Tertiary NOT GIVENUNK [place] Insurance:SELF PAY [facility] Number: Effective Repository Date:2018-03-24 03/24/2018 K Primary RICHARD Bonilla [place] [id number] Insurance:MEDICARE HORSTDOB: [facility] [id number], [place] Number: Repository 213[address]Ger: 330 [id number] [phone] (HP) Date:2018-03-24 03/24/2018 Secondary Irene [place] Insurance:EVERENCE HORSTDOB: [facility] [id number] Hospital Number: Repository [id number] Date:0384-46-28XT [address], [place] [address]AD: 03/24/2018 Tertiary NOT GIVENUNK [place] Insurance:SELF PAY [facility] Number: Effective Repository Date:2018-03-24 03/24/2018 K Primary K [place] [id number] Insurance:MEDICARE HORSTDOB: [facility] [id number] Number[place] Repository [id number]: 330 [id number] [phone] (HP) Date:2018-03-24 03/24/2018 Secondary K [place] Insurance:EVERENCE HORSTDOB: [facility] [id number] Hospital Number: Repository [id number] Date:4155-84-34OI [address] [place] [address]TW: 03/24/2018 Tertiary NOT GIVENUNK [place] Insurance:SELF PAY [facility] Number: Effective Repository Date:2018-03-24 03/24/2018 K Primary RICHARD Bonilla [place] [id number] Insurance:MEDICARE HORSTDOB: [facility] [id number] Number[place] Repository [id number]: 330 [id number] [phone] (HP) Date:2018-03-24 03/24/2018 Secondary Irene [place] Insurance:EVERENCE HORSTDOB: [facility] [id number] Hospital Number: Repository [id number] Date:6218-70-92ZR [address] [address]SU: 03/24/2018 Tertiary NOT GIVENUNK [place] Insurance:SELF PAY [facility] Number: Effective Repository Date:2018-03-24 03/24/2018 K Primary RICHARD Bonilla [place] [id number] Insurance:MEDICARE HORSTDOB: [facility] A [facility] [id number] Number: Repository [id number]: [phone] [id number] [phone] (HP) Date:2018-03-24 03/24/2018 Secondary K [place] Insurance:EVERENCE HORSTDOB: [facility] [id number] Hospital Number: Repository [id number] Date:0723-17-52[address], [place] [address]IS: 03/24/2018 Tertiary NOT GIVENUNK [place] Insurance:SELF PAY [facility] Number: Effective Repository Date:2018-03-24 03/24/2018 RICHARD Bonilla Primary RICHARD Bonilla [place] [id number] Insurance:MEDICARE [place]ORSTDOB[place] [facility] [id number] Number: Repository [id number]: [phone] [id number] [phone] () Date:2018-03-24 03/24/2018 Secondary RICHARD Bonilla [place] Insurance:EVERENCE HORSTDOB: [facility] [id number] Hospital Number: Repository [id number] Date:2613-96-01CT [address] [place] [place] [place] [address]QL: 03/24/2018 Tertiary NOT GIVENUNK [place] Insurance:SELF PAY [facility] Number: Effective Repository Date:2018-03-24 03/24/2018 RICHARD Bonilla Primary RICHARD Bonilla [place] [id number] Insurance:MEDICARE HORSTDOB: [facility] [id number] Number: Repository [id number]: [phone] [id number] [phone] () Date:2018-03-24 03/24/2018 Secondary RICHARD Bonilla [place] Insurance:EVERENCE HORSTDOB: [facility] [id number] Hospital Number: Repository [id number] Date:2843-49-65[address] [place] [place] [place] [address]FS: 03/24/2018 Tertiary NOT GIVENUNK [place] Insurance:SELF PAY [facility] Number: Effective Repository Date:2018-03-24 03/24/2018 RICHARD Bonilla Primary RICHARD Bonilla [place] [id number] Insurance:MEDICARE HORSTDOB[place] [facility] [id number][place] Number: Repository [id number]: [phone] [id number] [phone] (HP) Date:2018-03-24 03/24/2018 Secondary K [place] Insurance:EVERENCE HORSTDOB: [facility] [id number] Hospital Number: Repository [id number] Date:[id number] [place] [address]OM: 03/24/2018 Tertiary NOT GIVENUNK [place] Insurance:SELF PAY [facility] Number: Effective Repository Date:2018-03-24 03/24/2018 RICHARD Bonilla Primary RICHARD Bonilla [place] [id number] Insurance:MEDICARE HORSTDOB: [facility] [id number] Number: Repository [id number]: [phone] [id number] [phone] () Date:2018-03-24 03/24/2018 Secondary RICHARD Bonilla [place] Insurance:EVERENCE HORSTDOB: [facility] [id number] Hospital Number: Repository [id number] Date:4894-39-25[address], [place] [address]DH: 03/24/2018 Tertiary NOT GIVENUNK [place] Insurance:SELF PAY [facility] Number: Effective Repository Date:2018-03-24 03/24/2018 RICHARD Bonilla Primary RICHARD Bonilla [place] [id number] Insurance:MEDICARE HORSTDOB: [facility] [id number] Number: Repository [id number]: [phone] [id number] [phone] () Date:2018-03-24 03/24/2018 Secondary RICHARD Bonilla [place] Insurance:EVERENCE HORSTDOB: [facility] [id number] Hospital Number: Repository [id number] Date:9540-50-02BA [address] [place] [place] [address]HQ: 03/24/2018 Tertiary NOT GIVENUNK [place] Insurance:SELF PAY [facility] Hospital Number: Effective Repository Date:2018-03-24 03/24/2018 RICHARD Bonilla Primary RICHARD Bonilla [place] [id number] Insurance:MEDICARE HORSTDOB: [facility] [id number] Number: Repository [id number]: 330 [id number] [phone] (HP) Date:2018-03-24 03/24/2018 Secondary RICHARD Bonilla [place] Insurance:EVERENCE HORSTDOB: [facility] [id number] Hospital Number: Repository [id number] Date:9631-62-51[address] [address]IV: 03/24/2018 Tertiary NOT GIVENUNK [place] Insurance:SELF PAY [facility] Number: Effective Repository Date:2018-03-24 03/24/2018 RICHARD Bonilla Primary RICHARD Bonilla [place] [id number] Insurance:MEDICARE HORSTDOB: [facility] PART A [facility] [id number] Number: Repository [id number]: 330 [id number] [phone] (HP) Date:2018-03-24 03/24/2018 Secondary RICHARD Bonilla [place] Insurance:EVERENCE HORSTDOB: [facility] [id number] Hospital Number: Repository [id number] Date:5276-12-77[address] [address]JV: 03/24/2018 Tertiary NOT GIVENUNK [place] Insurance:SELF PAY [facility] Number: Effective Repository Date:2018-03-24
== END ==
PROVIDERS: Family Provider Family Medicine; PCP Family Medicine; Referring Provider Internal Medicine Infectious Disease; Visit Provider Internal Medicine Infectious Disease
DX: A41.01 Sepsis due to Methicillin susceptible Staphylococcus aureus (principal); M86.071 Acute hematogenous osteomyelitis, right ankle and foot
CPT/HCPCS: 36592; 80048; 85027; 85652; A4216

== ENCOUNTER → 2018-07-07 07:37 | Outpatient (CLI) | payer MEDICARE, OTHER, SELFPAY ==
[2018-05-28 10:06] VITALS: BMI 35.1
== END ==
PROVIDERS: Family Provider Family Medicine; PCP Family Medicine; Referring Provider Internal Medicine Infectious Disease; Visit Provider Internal Medicine Infectious Disease
DX: Z45.2 Encounter for adjustment and management of vascular access device (principal)

== ENCOUNTER 2018-11-30 18:09 | Emergency (ER) | payer MEDICARE, OTHER, SELFPAY ==
[2018-05-28 10:06] VITALS: BMI 35.1
[2018-11-30 18:10] VITALS: BP 171/88; PULSE 84; RESP 14; TEMP 36.6; O2SAT 98; BMI 36.7
--- NOTE | 2018-11-30 18:13 | EKG12_ITS ---
Test Reason : CP Blood Pressure : / mmHG Vent. Rate : 077 BPM Atrial Rate : 077 BPM P-R Int : 190 ms QRS Dur : 148 ms QT Int : 424 ms P-R-T Axes : 058 -59 035 degrees QTc Int : 479 ms Normal sinus rhythm with sinus arrhythmia Right bundle branch block Left anterior fascicular block Bifascicular block Abnormal ECG Confirmed by ANISA COLBERT, YECENIA ([id number]), editorial manager MARY INMAN ([id number]) on 12/01/2018 3:54:37 PM Referred By: TL Confirmed By:YECENIA LANGE MD
--- NOTE | 2018-11-30 18:20 | RAD_ITS ---
STUDY: X-RAY CHEST REASON FOR EXAM: Male, 73 years old. Chest pain TECHNIQUE: Single AP portable view of the chest. COMPARISON: None. FINDINGS: The lungs are clear and expanded. There is no demonstrated pleural abnormality. Sternal cerclage wires and vascular clips are present from a prior sternotomy and coronary artery bypass graft procedure (CABG). Normal mediastinum and francesca. Normal visualized pulmonary arteries. There is atherosclerotic tortuosity of the aortic arch and descending thoracic aorta. Normal visualized thoracic spine. Normal visualized ribs, clavicles, and shoulders. There is no demonstrated abnormality of the visualized soft tissue structures of the upper abdomen. RAD/Chest 1 View (Portable) IMPRESSION: No acute chest disease. Electronically Signed: Nash Park MD at 18:53 EDT , Service support ,
--- NOTE | 2018-11-30 18:23 | ED.VISSUMM ---
- ER Visit Summary Date of Service: 11/30/18 Chief Complaint: Chest pain History of Present Illness: The patient is a 73 M history of insulin-dependent diabetes, high blood pressure, high cholesterol, anemia, prior thoracic aneurysm repair and valve repair. On Coumadin. Patient states he has some back discomfort today which resolved when I have lower chest discomfort this was at rest while sitting in a chair. He denies any nausea, diaphoresis or shortness of breath. No pleuritic chest pain. No calf pain or swelling. No hemoptysis. States is almost completely resolved. At its worst the pain was a 3-4 out of 10. Currently is about a 1. On was gone. He did not take any nitro. Physical Examination: Older male coming by his . Vital signs are stable. He is afebrile. He does not look septic or toxic. He is in no distress. He says he feels fine. HEENT exam unremarkable. Neck nontender no lymphadenopathy. Lungs clear to auscultation bilaterally. Heart regular rhythm rate about 80 no murmur. Chest nontender. Abdomen soft nontender. Normal bowel sounds no peritoneal signs. Patient moving all 4 extremities. Neurovascular intact. Calves are nontender. Trace edema bilaterally. Chronic. No cords. Equal symmetrical radial pulses. Normal hand polisher strength and normal dorsi plantar flexion. Back nontender. Neurologically is awake alert with no focal motor deficits. Test Results: EKG shows a normal sinus rhythm with rate of 77 with both the right bundle branch block and a left anterior fascicular block. No acute signs of AL or ischemia. Is a white count of 9. Hemoglobin 12. Electrolytes unremarkable creatinine 1.3 normal gap. Patient is on Coumadin his INR is 2.6 his troponin is normal. Chest x-ray shows a prior sternotomy but otherwise normal cardiac silhouette mediastinum read both by myself and radiologist. Emergency Department Course and Treatment: Elderly male with atypical nonexertional chest pain. He has had no recent exertional dyspnea or chest pain. He has no history of coronary disease. Will undergo cardiac work-up. Repeat exam at 20:31 patient is doing well. He has no symptoms. He and his I discussed all his test results. I do not have a specific reason why he had chest discomfort which is resolved. He denies having any exertional dyspnea or exertional chest pain recently he is appropriately anticoagulated. He had I discussed admission versus discharge to home and outpatient follow-up with his primary care physician. He definitely wants to be discharged home and will follow-up with his primary care physician Dr. Chidi Christian this week. Treatment Plan: Outpatient follow-up with his PCP. Disposition: Discharge Impression: Acute atypical nonexertional chest pain of uncertain etiology Anticoagulated on Coumadin That is post prior thoracic aneurysm repair and valve repair. History of insulin-dependent diabetes, hypertension, anemia and high cholesterol. This note was generated with Perdoo dictation software. It may contain incorrect words, spelling, and punctuation that were not noted in review of the chart prior to signing ED Disposition - Plan for ED Patient: Referrals: Chidi Christian III, MD [Primary Care Provider] -
--- NOTE | 2018-11-30 18:27 | ED.DCSUM_ITS ---
- ER Visit Summary Date of Service: 11/30/18 Chief Complaint: Chest pain History of Present Illness: The patient is a 73 M history of insulin-dependent diabetes, high blood pressure, high cholesterol, anemia, prior thoracic aneurysm repair and valve repair. On Coumadin. Patient states he has some back dis comfort today which resolved when I have lower chest discomfort this was at rest while sitting in a chair. He denies any nausea, diaphoresis or shortness of breath. No pleuritic chest pain. No calf pain or swelling. No hemoptysis. States is almost completely resolved. At its worst the pain was a 3-4 out of 10. Currently is about a 1. On was gone. He did not take any nitro. Physical Examination: Older male coming by his . Vital signs are stable. He is afebrile. He does not look septic or toxic. He is in no distress. He says he feels fine. HEENT exam unremarkable. Neck nontender no lymphadenopathy. Lungs clear to auscultation bilaterally. Heart regular rhythm rate about 80 no murmur. Chest nontender. Abdomen soft nontender. Normal bowel sounds no peritoneal signs. Patient moving all 4 extremities. Neurovascular intact. Calves are nontender. Trace edema bilaterally. Chronic. No cords. Equal symmetrical radial pulses. 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 Back nontender. Neurologically is awake alert with no focal motor deficits. Test Results: EKG shows a normal sinus rhythm with rate of 77 with both the right bundle branch block and a left anterior fascicular block. No acute signs of MA or ischemia. Is a white count of 9. Hemoglobin 12. Electrolytes unremarkable creatinine 1.3 normal gap. Patient is on Coumadin his INR is 2.6 his troponin is normal. Chest x-ray shows a prior sternotomy but otherwise normal cardiac silhouette mediastinum read both by myself and radiologist. Emergency Department Course and Treatment: Elderly male with atypical nonexertional chest pain. He has had no recent exertional dyspnea or chest pain. He has no history of coronary disease. Will undergo cardiac work-up. Repeat exam at 20:31 patient is doing well. He has no symptoms. He and his I discussed all his test results. I do not have a specific reason why he had chest discomfort which is resolved. He denies having any exertional dyspnea or exertional chest pain recently he is appropriately anticoagulated. He had I discussed admission versus discharge to home and outpatient follow-up with his primary care physician. He definitely wants to be discharged home and will follow-up with his primary care physician Dr. Chidi Christian this week. Treatment Plan: Outpatient follow-up with his PCP. Disposition: Discharge Impression: Acute atypical nonexertional chest pain of uncertain etiology Anticoagulated on Coumadin That is post prior thoracic aneurysm repair and valve repair. History of insulin-dependent diabetes, hypertension, anemia and high cholesterol. This note was generated with sofatutor dictation software. It may contain incorrect words, spelling, and punctuation that were not noted in review of the chart prior to signing ED Disposition - Plan for ED Patient: Referrals: Chidi Christian III, MD [Primary Care Provider] -
[2018-11-30] MEDS: Aspirin 81 MG TAB.CHEW 324 MG PO (18:28)
[2018-11-30 18:32] VITALS: O2SAT 96
[2018-11-30 18:34] LABS: Absolute Lymphocyte Count 2.46 X10^3/ul (0.83-4.51); Absolute Neutrophil Count 5.8 X10^3/uL (2.0-7.7); Basophil# 0.02 X10^3/uL; Basophil% 0.2 % (0-1); Eosinophil# 0.37 X10^3/uL; Hematocrit 38.2 % (40-54); Hemoglobin 12.2 g/dl (13.0-16.5); Lymphocyte # 2.46 X10^3/ul (4.0); Lymphocyte % 26.8 % (19-41); Mean Corp Hgb Conc 31.9 g/gl (32-36); Mean Corpuscular Hgb 26.3 pg (27.0-32.0); Mean Corpuscular Volume 82.5 fL (80-94); Mean Platelet Vol. 8.8 fl (6.2-12.0); Monocyte# 0.49 X10^3/uL; Monocyte% 5.3 % (0-10); Neutrophil # 5.81 X10^3/uL (2.7-7.7); Neutrophil % 63.3 % (47-70); Platelet Count 255 K/mm3 (150-450); RBC Distribution Width CV 15.8 % (11.6-14.6); RBC Distribution Width SD 47.4 fl (35.1-43.9); Red Blood Count 4.63 M/mm3 (4.6-6.2); White Blood Count 9.2 K/mm3 (4.4-11.0)
[2018-11-30 18:35] LABS: POSITIVE COUNT NO; POSITIVE DIFFERENTIAL NO; POSITIVE MORPHOLOGY NO
[2018-11-30 18:38] LABS: International Normalized Ratio 2.6; Prothrombin Time (Protime)PT. 27.8 SECONDS (11.7-14.9)
[2018-11-30 18:50] LABS: Anion Gap 8 (5-15); BUN 21 mg/dL (7-18); BUN/Creat Ratio 16.2 RATIO (10-20); Chloride 103 mmol/L (98-107); EST Glomerular Filtration Rate 58 mL/min (>60); Est Glom Filt Rate - Afr Amer 70 mL/min (>60); Glucose 139 mg/dL (74-106); Potassium 3.7 mmol/L (3.5-5.1); Sodium Level 139 mmol/L (136-145)
[2018-11-30 19:59] VITALS: BP 146/78; PULSE 81; RESP 13; O2SAT 100
[2018-11-30 20:31] VITALS: BP 151/81; PULSE 78; RESP 15; O2SAT 99
--- NOTE | 2018-11-30 20:37 | ED.DEP ---
ED Disposition - Plan for ED Patient: Disposition: Home or Assisted Living Instructions: ED Chest Pain Atypical Unkn Cause Referrals: Chidi Christian III, MD [Primary Care Provider] - As soon as possible Additional Instructions: Your work-up today in the emergency department was unremarkable. We do not have a specific cause of your discomfort. If you are feeling worse return to the ER. Otherwise call your primary care physician's office Dr. Chidi Christian tomorrow morning and see if they get you in the next several days to be reevaluated.
[2018-11-30 20:42] VITALS: BP 151/81; PULSE 79; RESP 14; O2SAT 98
== END 2018-11-30 20:45 | disposition home or self-care (01) ==
PROVIDERS: Emergency Provider Emergency Medicine; Family Provider Family Medicine; PCP Family Medicine
DX: R07.89 Other chest pain (principal); I10 Essential (primary) hypertension; D64.9 Anemia, unspecified; E78.00 Pure hypercholesterolemia, unspecified; E11.9 Type 2 diabetes mellitus without complications; Z79.4 Long term (current) use of insulin; Z79.01 Long term (current) use of anticoagulants; Z79.899 Other long term (current) drug therapy
CPT/HCPCS: 71045; 80048; 84484; 85025; 85610; 93005; 99285; A4216

== ENCOUNTER 2019-01-10 12:20 | Inpatient (IN) | payer MEDICARE, OTHER, SELFPAY ==
[2019-01-10] VITALS (13 sets, daily range): BP systolic 99–138; BP diastolic 59–71; PULSE 68–89; RESP 16–18; TEMP 36.2–36.9; O2SAT 97–99; BMI 37.5; BMI 35.3
--- NOTE | 2019-01-10 | GASB_PTH ---
PATIENT: RICHARD ROY LOC: [facility] U#:[id number] AGE/SX: 73/M ROOM: [facility] RE01/10/[address]: Dr. Ryan Tinoco MD : 1945 BED: 1 DIS: 01/11/2019 SPEC #: [id number] RECD: 01/10/19 09:02 STATUS: VINNIE REQ #: [id number] CAMILA: 01/10/19 00:[address]: Richard Jones DEPT: SURGICAL PATHOLOGY RECD BY: Asaf Esteban ENTERED: 01/12/19 10:53 SP TYPE: Gastric Bx OTHR DR: DO Dr. Chidi Bee III, MD Dr. Prakash Chand, MD Dr. Richard Guttman, MD Tissues: Gastric mucous membrane Procedures: Surgery Specimen Level IV Comments: @ Ordering doctor for SUIV edited from to @ by DONNA at 01/12/19 1407 @ Submitting doctor edited from to DR.RGUTTM Lynn by RAFYOD at 01/12/19 1407 HEADER OPERATION: EGD PRE-OP DIAGNOSIS: GI bleed TISSUE SUBMITTED: Antral biopsy for H. pylori and path MICROSCOPIC DIAGNOSIS Gastric antrum, biopsy: Mild chronic gastritis. AM:radhika 01/13/19 COMMENT The results of immunohistochemistry for Helicobacter pylori will be reported separately ([id number]). MICROSCOPIC DESCRIPTION Slides are reviewed. GROSS DESCRIPTION Received in fixative is one container labeled with the patient's name and designated antral biopsy for H.?pylori and path. The specimen consists of one irregular fragment of light rivas soft tissue that measures 0.4 x 0.3 x 0.1 cm. The specimen is totally submitted in one cassette. / SJ:radhika 01/12/19 TC:3 CPT: 81959
--- NOTE | 2019-01-10 12:40 | EKG12_ITS ---
Test Reason : GENERAL ILLNESS Blood Pressure : / mmHG Vent. Rate : 080 BPM Atrial Rate : 080 BPM P-R Int : 166 ms QRS Dur : 142 ms QT Int : 414 ms P-R-T Axes : 092 -50 020 degrees QTc Int : 477 ms Normal sinus rhythm Right bundle branch block Left anterior fascicular block Bifascicular block Abnormal ECG Confirmed by RONEY COLBERT, DAVE ([id number]), food expeditor TRINY MAIER ([id number]) on 01/12/2019 2:26:55 PM Referred By: MAX Confirmed By:DAVE SIM MD
--- NOTE | 2019-01-10 12:44 | ED.VIS.GEN ---
History of Present Illness <PardeepRoney - Last Filed: 01/10/19 13:58> Informant: Patient, Significant Other Onset: Days - 3-4 days Context: Gradual Onset Timing: Continuous Quality: lightheaded Location: head Current Severity: Severe Maximum Severity: Severe Worsened by: ambulation Relieved by: rest Associated Symptoms: Lightheadedness, black stool, abdominal pain Narrative: 73-year-old male with a history of insulin-dependent diabetes mellitus, currently anticoagulated on warfarin, presents to the emergency department with nominal pain, black stool and lightheadedness and dizziness. Patient states for the past 5 days he has been having some epigastric discomfort that he describes as an acid feeling in his stomach worse with eating. Over the past 3 days he states each time he has had a bowel movement, once per day he has had black tarry stool. Since yesterday he has been getting lightheaded and dizzy specifically with standing from a seated or laying position. He states that he checked his blood pressure at home today on his machine and it was approximately 90/50. He is on Coumadin. He had a colonoscopy 5 years ago. He has never had an endoscopy. He denies history of GERD or peptic ulcer disease. He states for the past 2 weeks he was taking naproxen but only every other day at most for approximately 5 days worth. Denies alcohol abuse. He has not been short of breath or had chest pain. He denies any other symptoms of bleeding. Prior similar symptoms: No <Alexx Benitez - Last Filed: 01/10/19 14:16> Chief Complaint: GI Bleed Past Medical History <PardeepRoney - Last Filed: 01/10/19 13:58> Surgical History: - - Repair of a thoracic aortic aneurysm and aortic valve repair in 2006. Patient also had an MRSA infection in his abdomen before and had quite extensive debridement. Lives: Spouse/ Significant Other Smoking Status: Never smoker - Family History Maternal Family History: Reports: Heart Disease <Alexx Benitez - Last Filed: 01/10/19 14:16> - Allergies and Home Meds Allergies/Adverse Reactions: Allergies propofol Adverse Reaction (Verified 01/10/19 12:22) Other Primary Care Physician: Chidi Christian III, MD [Primary Care Provider] - Review of Systems All systems negative except as indicated Gastrointestinal: Reports: Abdominal pain, Nausea, Melena Neurological: Reports: - - Lightheadedness <Alexx Benitez - Last Filed: 01/10/19 14:16> Physical Exam Vital Signs/Narrative: Vital Signs Temp Pulse Resp BP Pulse Ox 01/10/19 12:22 97.2 F L 88 16 99/59 L 98 <RobertoRoney - Last Filed: 01/10/19 13:58> Vital Signs/Narrative: Vital Signs Temp Pulse Resp BP Pulse Ox 01/10/19 12:22 97.2 F L 88 16 99/59 L 98 General: Well nourished, Well developed Head: Normocephalic, Atraumatic Eyes: Perrl, EOMI ENT: Moist mucous membranes Neck: Supple, Nontender Cardiovascular: Regular rate, Regular rhythm Respiratory: No distress, CTA bilaterally, Chest nontender Abdomen: Soft, Nondistended, Normal bowel sounds, No masses, Tender - Patient has some mild tenderness on palpation in his epigastrium. No right upper quadrant tenderness. Rectal: - - black stool Back: Nontender Extremities: Nontender, No edema Skin: No rash, Pallor Neurological: Alert, Oriented x3, Normal Strength, Normal Sensation <EmmanuelAlexx - Last Filed: 01/10/19 14:16> Diagnostic/Tx/Re-eval Laboratory Results 01/10/19 01/10/19 01/10/19 13:00 13:00 13:00 WBC 16.1 H RBC 3.26 L Hgb 8.6 L Hct 27.0 L MCV 82.8 MCH 26.4 L MCHC 31.9 L RDW 15.6 H RDW Differential 47.0 H Plt Count 284 MPV 9.3 Immature Gran % (Auto) 0.700 Neut % (Auto) 83.7 H Lymph % (Auto) 10.2 L Gillespie % (Auto) 4.3 Eos % (Auto) 1.0 Baso % (Auto) 0.1 Absolute Neuts (auto) 13.5 H Absolute Lymphs (auto) 1.65 Total Counted Not Reportable PT 41.4 H INR 4.3 H* Sodium 141 Potassium 4.8 Chloride 107 Carbon Dioxide 21.0 Anion Gap 13 BUN 73 H Creatinine 1.54 H Estim Creat Clear Calc 49.72 Est GFR (MDRD) Af Amer 58 L Est GFR (MDRD) Non-Af 48 L BUN/Creatinine Ratio 47.4 H Glucose 217 H Lactic Acid Calcium 9.9 Total Bilirubin 0.20 AST 10 L ALT 23 Alkaline Phosphatase 60 Total Protein 5.9 L Albumin 3.1 L Globulin 2.8 Albumin/Globulin Ratio 1.1 Lipase 233 01/10/19 13:00 WBC RBC Hgb Hct MCV MCH MCHC RDW RDW Differential Plt Count MPV Immature Gran % (Auto) Neut % (Auto) Lymph % (Auto) Gillespie % (Auto) Eos % (Auto) Baso % (Auto) Absolute Neuts (auto) Absolute Lymphs (auto) Total Counted PT INR Sodium Potassium Chloride Carbon Dioxide Anion Gap BUN Creatinine Estim Creat Clear Calc Est GFR (MDRD) Af Amer Est GFR (MDRD) Non-Af BUN/Creatinine Ratio Glucose Lactic Acid 5.3 H* Calcium Total Bilirubin AST ALT Alkaline Phosphatase Total Protein Albumin Globulin Albumin/Globulin Ratio Lipase - EKG Initial EKG Interpretation: Sinus Rhythm - Ventricular rate is 80. There is evidence of a right bundle branch block and left anterior fascicular block. HI interval is 166 ms. QRS durations 142 ms. QT interval is 414 ms. - Medical Decision Making Patient presents with lightheadedness and black stool. Black stool started several days ago. He has been taking Aleve for approximately 2 weeks. He states he has not been taking it every day. He denies reflux symptoms or epigastric pain. He states numerous friends and have told him he appears pale. He does get orthostatic symptoms. He has no history of peptic ulcer disease. He has no prior history of lower GI bleed. He denies cardiac or respiratory symptoms. Does complain of malaise and fatigue. Patient's vital signs are remarkable for low blood pressure 99/59. Heart rates only 88. He is on a beta-ihsan. Conjunctive is pale. He appears pale. There is erythema creases of his palm. Heart is regular. Lungs are clear to auscultation. Abdomen soft nontender. Rectal exam performed by Alexx Walden he was positive for black stool. Patient received 1 L of normal saline wide open. He was typed and screened and appropriate blood work was obtained. He was administered Protonix IV push and drip for GI bleed secondary to NSAIDs. Patient's lactate is greater than 5. Hemoglobin is 8.6. Patient's primary care physician Dr. Chidi Christian to [facility]. He requested to see a surgeon with the clinic. Dr. ng was contacted. Dr. Jones states he will scope him if he continues to bleed once his INR has been corrected. Patient received 10 mg of vitamin K IV push and Kcentra for his Coumadin induced coagulopathy. Since patient has hemorrhagic shock secondary to GI bleed he will require admission to the intensive care unit. Will page hospitalist for admission. - Critical Care Time Critical care time (excluding procedures): 30-74 minutes - Critical care time 33 minutes, Discussing w/Patient &/or Family/Field Education Director, Discussing w/Consultants, Arranging Admission or Transfer <PardeepRoney - Last Filed: 01/10/19 13:58> - Medical Decision Making On arrival patient was hypotensive. His rectal exam showed black stool that was Hemoccult positive. He was given IV fluids. Work-up was pursued. His hemoglobin is 8.6. Lactate was 5. His INR was 4. Because of his active bleeding and hemorrhagic shock he was given vitamin K and Kcentra and crossed for 2 units of blood. We discussed with on-call surgery as well as the hospitalist. He will be admitted to the ICU. <Alexx Benitez - Last Filed: 01/10/19 14:16> ED Disposition <Roney Roberto - Last Filed: 01/10/19 13:58> <Alexx Benitez - Last Filed: 01/10/19 14:16> - Plan for ED Patient: Disposition: Acute Care Hospital [facility] Diagnosis: Hypotension, Upper gastrointestinal bleed, Anemia due to acute blood loss, Hemorrhagic shock, Coagulopathy Referrals: Chidi Christian III, MD [Primary Care Provider] -
[2019-01-10] MEDS: 0.9% Normal Saline 1,000 ML 1000 ML IV (13:13)
[2019-01-10 13:23] LABS: Absolute Lymphocyte Count 1.65 X10^3/ul (0.83-4.51); Absolute Neutrophil Count 13.5 X10^3/uL (2.0-7.7); Basophil# 0.02 X10^3/uL; Basophil% 0.1 % (0-1); Eosinophil# 0.16 X10^3/uL; Hemoglobin 8.6 g/dl (13.0-16.5); Lymphocyte # 1.65 X10^3/ul (4.0); Lymphocyte % 10.2 % (19-41); Mean Corp Hgb Conc 31.9 g/gl (32-36); Mean Corpuscular Hgb 26.4 pg (27.0-32.0); Mean Corpuscular Volume 82.8 fL (80-94); Mean Platelet Vol. 9.3 fl (6.2-12.0); Monocyte# 0.69 X10^3/uL; Monocyte% 4.3 % (0-10); Neutrophil # 13.48 X10^3/uL (2.7-7.7); Neutrophil % 83.7 % (47-70); POSITIVE COUNT NO; POSITIVE DIFFERENTIAL NO; POSITIVE MORPHOLOGY NO; Platelet Count 284 K/mm3 (150-450); RBC Distribution Width CV 15.6 % (11.6-14.6); Red Blood Count 3.26 M/mm3 (4.6-6.2); White Blood Count 16.1 K/mm3 (4.4-11.0)
[2019-01-10 13:24] LABS: International Normalized Ratio 4.3; Prothrombin Time (Protime)PT. 41.4 SECONDS (11.7-14.9)
--- NOTE | 2019-01-10 13:31 | ED.RN ---
ROBSON FROM LAB CALLED WITH INR 4.3, PRIMARY NURSE, RODOLFO YAÑEZ,RN, AND Ty LICEA INFORMED OF SAME.
[2019-01-10 13:43] LABS: ALB/GLOB Ratio 1.1 RATIO (0.9-2.4); AST(SGOT) 10 U/L (15-37); Alanine Aminotransfer ALT/SGPT 23 U/L (16-61); Albumin, Serum 3.1 g/dL (3.2-5.0); Alkaline Phosphatase 60 U/L (45-117); Anion Gap 13 (5-15); BUN 73 mg/dL (7-18); BUN/Creat Ratio 47.4 RATIO (10-20); Calcium,Total 9.9 mg/dL (8.5-10.1); Chloride 107 mmol/L (98-107); Creatinine, Serum 1.54 mg/dL (0.70-1.30); EST Glomerular Filtration Rate 48 mL/min (>60); Est Glom Filt Rate - Afr Amer 58 mL/min (>60); Estimated Creatinine Clearance 49.72 ml/min; Globulin 2.8 g/dL (2.2-4.2); Glucose 217 mg/dL (74-106); Lipase 233 U/L (73-393); Potassium 4.8 mmol/L (3.5-5.1); Protein, Total 5.9 g/dL (6.4-8.2); Sodium Level 141 mmol/L (136-145)
[2019-01-10 13:50] LABS: Lactic Acid 5.3 mmol/L (0.4-2.0)
--- NOTE | 2019-01-10 13:53 | ED.RN ---
call from quiana in lab , lactic acid - 5.3 , jami belcher and dr. richey aware
--- NOTE | 2019-01-10 14:23 | ED.RN ---
FAMILY IS BRINGIN IN MEDICATION LIST
--- NOTE | 2019-01-10 14:37 | ED.RN ---
dr teixeira in with pt. anticipates pt [facility] to [facility]. wait/other
--- NOTE | 2019-01-10 14:40 | ED.RN ---
Addendum entered by Cori Day 01/10/19 15:01: DISCUSSED WITH DR HAMMER THAT DR LIMON VERBALIZED PT NOT TO GET KCENTRA THAT IT WASNT NEEDED. AND TO GO TO PCU. DR HAMMER VERBALIZED TO THIS NURSE THAT HE CONSULTED WITH DR WILLSON. DR WILLSON WANTED HIM REVERSED AND THAT HE DOES NOT WANT HIS KCENTRA ORDER CANCELLED. Original Note: dr hammer wants kcentra given prior to pt going to inpatient area.
[2019-01-10] MEDS: HUMAN PROTHROMBIN COMPLX(PCC) 3,500 UNIT in Viaflex Bag 1 BAG 500 UNIT IV (14:45)
--- NOTE | 2019-01-10 15:24 | HP.PCM_ITS ---
Problem List (1) Lactic acidosis Status: Acute (2) Upper gastrointestinal bleed Status: Acute (3) Anemia due to acute blood loss Status: Acute History of Present Illness Date of Admission: 01/10/19 Chief Complaint: melena The patient is a 73 year old M presents with melena. Melena has been essentially daily over the past month. Also has some epigastric burning. Pres ented to the emergency room is found to have a hemoglobin of 8.6. Hemoglobin in November was 12.2. Patient denies any hematochezia nor hematemesis. INR today was 4.3 and patient had ordered 10 mg of IV vitamin K plus prothrombin complex concentrate. Patient denies any active melena at this time. Patient's lactic acid was 5.3. Patient has never had an ulcer that he is aware of nor ever had a GI bleed before. Patient has remained normotensive in the emergency room. 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) DM II (diabetes mellitus, type II), controlled (Chronic) Pulmonary emboli (Chronic) HTN (hypertension) (Chronic) Allergies propofol Adverse Reaction (Verified 01/10/19 12:22) Other Home Medications: Ambulatory Orders Medication Instructions Recorded Metoprolol(XL)Succ [Toprol Xl 200 mg PO DAILY 09/16/13 (Beta Red)] Losartan Potassium 50 mg PO DAILY 03/24/18 Metformin HCl [Metformin HCl ER] 1,000 mg PO BID 03/24/18 Aspirin [Aspirin, Baby] 81 mg PO DAILY@0800 05/22/18 Atorvastatin Calcium [Lipitor] 40 mg PO QHS 05/22/18 Dulaglutide [Trulicity] 1.5 mg SQ QWEEK 05/22/18 Insulin Glargine [Lantus SoloStar 24 units SC DAILY 05/22/18 Pen] Insulin Lispro [Humalog KwikPen] See Protocol SQ 4X/DAY 05/22/18 Warfarin [Coumadin] 5 mg PO GARCIA 05/22/18 Warfarin Sodium 10 mg PO MOTUWETHFRSA 11/30/18 Surgical History: - - Repair of a thoracic aortic aneurysm and aortic valve repair in 2006. Patient also had an MRSA infection in his abdomen before and had quite extensive debridement. Lives: Spouse/ Significant Other Smoking Status: Never smoker - *Family History Maternal History Items: Heart Disease Review of Systems Constitutional: Reports: Anorexia, Malaise, - - Dizziness upon standing. Denies: Chills, Fever Eyes: Denies: Blurred vision, Double vision HEENT: Denies: Head Aches, Sinus Congestion, Sinus Drainage Cardiovascular: Denies: Chest Pain, Palpitations Respiratory: Denies: Cough, Shortness of breath at rest, Sputum production Gastrointestinal: Reports: Abdominal Pain, Melena. Denies: Hematemesis, Hematochezia, Nausea, Vomiting Genitourinary: Denies: Dysuria Musculoskeletal: Denies: Joint Pain, Joint Tenderness Skin: Denies: Rash, Wounds Neurological: Reports: Numbness - In hands and feet. Denies: Focal weakness, Tingling Psychiatric: Denies: Anxiety, Depression Endocrine: Denies: Change in Body Habitus, Heat/ Cold Intolerance Hematologic/ Lymphatic: Denies: Easy Bruising, Easy Bleeding, Hx of blood clot Comment: A 10 point review of systems were negative except as mentioned in the history of present illness and the other review of systems. VTE Information - Inpt Only VTE Present on Admission: No VTE Mechan Device Prophylaxis: SCD's VTE Pharm Prophylaxis ordered?: No Reason prophylaxis not ordered:: Medical Contraindication Patient Problems: Active and Suspected Problems Hypotension (Acute) Upper gastrointestinal bleed (Acute) Anemia due to acute blood loss (Acute) Hemorrhagic shock (Acute) Coagulopathy (Acute) Lactic acidosis (Acute) - Physical Exam General: Alert, Cooperative, No apparent distress HEENT: Atraumatic, PERRLA, EOMI, Normocephalic Oral: Moist Mucosa, No Gingival or Mucosal Lesions/ Ulcerations Neck: Supple, No JVD, Negative Carotid Bruits Lungs: Clear to auscultation, Normal air movement Cardiovascular: Regular rate, Regular Rhythm, Normal S1, Normal S2, No murmurs Abdomen: Bowel Sounds Present, Soft, Non Tender, Non-Distended, No Hepato- splenomegaly Extremities: No edema, No Calf Tenderness Skin: No rashes, No breakdown Musculoskeletal: No Tenderness to Palpation of Joints or Extremities, No Muscle Wasting Neurological: Deep Tendon Reflexes 2+/4 and Symmetrical, - - No clonus Psych/Mental Status: Normal Affect, Appropriate Vital Signs Temp Pulse Resp BP Pulse Ox 36.2 C L 86 18 122/61 H 98 01/10/19 12:22 01/10/19 15:06 01/10/19 15:06 01/10/19 15:06 01/10/19 15:06 Oxygen Delivery Method Room Air Weight: 129.274 kg Body Mass Index (BMI) 37.5 Finger Stick Blood Glucose 165 Microbiology Past 72 Hours 01/10/19 13:00 Stool Occult Blood (KLAUS) - Final Stool Laboratory Tests Past 24 Hrs 01/10/19 01/10/19 01/10/19 13:00 13:00 13:00 WBC 16.1 H RBC 3.26 L Hgb 8.6 L Hct 27.0 L MCV 82.8 MCH 26.4 L MCHC 31.9 L RDW 15.6 H RDW Differential 47.0 H Plt Count 284 MPV 9.3 Immature Gran % (Auto) 0.700 Neut % (Auto) 83.7 H Lymph % (Auto) 10.2 L Frontier % (Auto) 4.3 Eos % (Auto) 1.0 Baso % (Auto) 0.1 Absolute Neuts (auto) 13.5 H Absolute Lymphs (auto) 1.65 Total Counted Not Reportable PT 41.4 H INR 4.3 H* Sodium 141 Potassium 4.8 Chloride 107 Carbon Dioxide 21.0 Anion Gap 13 BUN 73 H Creatinine 1.54 H Estim Creat Clear Calc 49.72 Est GFR (MDRD) Af Amer 58 L Est GFR (MDRD) Non-Af 48 L BUN/Creatinine Ratio 47.4 H Glucose 217 H Lactic Acid Calcium 9.9 Total Bilirubin 0.20 AST 10 L ALT 23 Alkaline Phosphatase 60 Total Protein 5.9 L Albumin 3.1 L Globulin 2.8 Albumin/Globulin Ratio 1.1 Lipase 233 01/10/19 13:00 WBC RBC Hgb Hct MCV MCH MCHC RDW RDW Differential Plt Count MPV Immature Gran % (Auto) Neut % (Auto) Lymph % (Auto) Frontier % (Auto) Eos % (Auto) Baso % (Auto) Absolute Neuts (auto) Absolute Lymphs (auto) Total Counted PT INR Sodium Potassium Chloride Carbon Dioxide Anion Gap BUN Creatinine Estim Creat Clear Calc Est GFR (MDRD) Af Amer Est GFR (MDRD) Non-Af BUN/Creatinine Ratio Glucose Lactic Acid 5.3 H* Calcium Total Bilirubin AST ALT Alkaline Phosphatase Total Protein Albumin Globulin Albumin/Globulin Ratio Lipase Assessment/Plan All Active Problems Hypotension (Acute) Upper gastrointestinal bleed (Acute) Anemia due to acute blood loss (Acute) Hemorrhagic shock (Acute) Coagulopathy (Acute) Lactic acidosis (Acute) Wound dehiscence (Acute) H/O aortic valve repair (Resolved) H/O thoracic aortic aneurysm repair (Resolved) Nausea (Resolved) PAF (paroxysmal atrial fibrillation) (Resolved) 1. GI bleed * Presumably this may be upper given the melena and his epigastric abdominal pain and burning. Suspecting peptic ulcer disease. * Complicated by concomitant use of aspirin as well as Coumadin. INR was 4.3 and patient had ordered by the emergency room physician vitamin K as well as prothrombin complex concentrate. * Patient written for Protonix drip from the emergency room. I will discontinue that and put the patient on Protonix 40 mg twice daily * Dr. Orourke, general surgery, has been contacted and will plan on doing endoscopy on the patient * Clear liquid diet for now 2. Acute blood loss anemia * Hemoglobin 8.6 * Emergency room wrote to be transfused 2 units packed red blood cells. Given the patient is hemodynamically stable at this time, I do not feel that that is indicated and we will put a hold on the transfusions until we can follow serial H&H or if his condition deteriorates. 3. Coagulopathy * Patient written for vitamin K as well as prothrombin complex concentrate by the emergency room * Follow-up INR 4. Lactic acidosis * Clinically do not feel the patient is in hemorrhagic shock as much this bleeding has been more chronic over the past month. Patient did not have a sudden GI bleed that precipitated all this. Certainly patient's lactic acid is elevated and that will certainly continue to be monitored but I feel that it is more component of him also being on metformin but certainly complicates the overall picture. Currently the patient is hemodynamically stable and therefore I clinically do not feel that he has hemorrhagic shock. * Hold metformin 5. Diabetes mellitus type 2 * We will continue with his basal insulin but at half the dose at 12 for now. Signed scale insulin. Hold his oral agents 6. History of VTE * Coumadin being held given GI bleed as risks far outweigh the benefits at this time * Ideally his anticoagulation and will need to be resumed when it is appropriate unclear when it will be 7. VTE prophylaxis: SCDs. Chemical prophylaxis contraindicated in light of the GI bleed 8. Advanced care planning: Asked patient about CPR, intubation and PEG tube. Patient states that he is open to CPR as well as intubation but no PEG tube if it were necessary. Therefore the patient is full CODE STATUS. Case discussed with the patient's at bedside. Code Visit Inpatient E&M: 76526 Init Hosp L3
--- NOTE | 2019-01-10 16:54 | CON.PCM_ITS ---
Reason for Consult Date of Consultation: 01/10/19 Reason for Consultation: melena, elevated INR History of Present Illness: The patient is a 73 year old M with a prior thoracic aortic replacement on chronic coumadin. He noted black stools for the past few days and felt somewhat unsteady when getting out of a chair for the past 2 days. This morning, he felt overall bad, without more specific complaints. He presented to [facility] ER. He was found to be hypotensive. His Hgb was 8.6 - down from 12 last month. Interestingly - his stool for occult blood was negative. Lactic acid was elevated at 5.3. WBC elevated at 16K. He does note some mild epigastric pain. He has not had prior EGD. He recalls he had a colonoscopy 5 years previously - he understands it was unremarkable. I see record of a colonoscopy by Dr. Olsen in 2010 which was normal with a recommended follow up date of 2020 He woke up from a surgical procedure on 03/28/18 very combative. He understood it was felt to be due to propofol. He however received propofol at his second procedure om 06/01 and had no anesthesia issues. 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) DM II (diabetes mellitus, type II), controlled (Chronic) Pulmonary emboli (Chronic) HTN (hypertension) (Chronic) Allergies propofol Adverse Reaction (Verified 01/10/19 12:22) Other Home Medications: Ambulatory Orders Medication Instructions Recorded Metoprolol(XL)Succ [Toprol Xl 200 mg PO DAILY 09/16/13 (Beta Red)] Losartan Potassium 50 mg PO DAILY 03/24/18 Metformin HCl [Metformin HCl ER] 1,000 mg PO BID 03/24/18 Aspirin [Aspirin, Baby] 81 mg PO DAILY@0800 05/22/18 Atorvastatin Calcium [Lipitor] 40 mg PO QHS 05/22/18 Dulaglutide [Trulicity] 1.5 mg SQ QWEEK 05/22/18 Insulin Glargine [Lantus SoloStar 24 units SC DAILY 05/22/18 Pen] Insulin Lispro [Humalog KwikPen] See Protocol SQ 4X/DAY 05/22/18 Warfarin [Coumadin] 5 mg PO GARCIA 05/22/18 Warfarin Sodium 10 mg PO MOTUWETHFRSA 11/30/18 Surgical History: - - Repair of a thoracic aortic aneurysm and aortic valve repair in 2006. Patient also had an MRSA infection in his abdomen before and had quite extensive debridement. Lives: Spouse/ Significant Other Smoking Status: Never smoker - *Family History Maternal History Items: Heart Disease Review of Systems Constitutional: Reports: Malaise, Fatigue HEENT: Denies: Head Aches, Sinus Congestion, Sinus Drainage Cardiovascular: Denies: Chest Pain, Palpitations Respiratory: Denies: Cough, Shortness of breath at rest, Sputum production Gastrointestinal: Reports: Abdominal Pain, Melena Genitourinary: Denies: Dysuria Musculoskeletal: Denies: Joint Pain, Joint Tenderness Skin: Denies: Rash, Wounds Neurological: Denies: Numbness, Tingling, Focal weakness Psychiatric: Denies: Anxiety, Depression, Homicidal Ideations, Suicidal Ideations Patient Problems: Active and Suspected Problems Hypotension (Acute) Upper gastrointestinal bleed (Acute) Anemia due to acute blood loss (Acute) Hemorrhagic shock (Acute) Coagulopathy (Acute) Lactic acidosis (Acute) - Physical Exam General: Alert, Oriented x3, Cooperative Neck: Supple, No JVD, Negative Carotid Bruits Lungs: Clear to auscultation, Normal air movement Cardiovascular: Regular rate, No murmurs Abdomen: Bowel Sounds Present, Soft, Non Tender Vital Signs Temp Pulse Resp BP Pulse Ox 97.2 F L 86 18 122/61 H 98 01/10/19 12:22 01/10/19 15:06 01/10/19 15:06 01/10/19 15:06 01/10/19 15:06 Oxygen Delivery Method Room Air Weight: 121.427 kg Body Mass Index (BMI) 35.3 Finger Stick Blood Glucose 165 Microbiology Past 72 Hours 01/10/19 13:00 Stool Occult Blood (KLAUS) - Final Stool Laboratory Tests Past 24 Hrs 01/10/19 01/10/19 01/10/19 13:00 13:00 13:00 WBC 16.1 H RBC 3.26 L Hgb 8.6 L Hct 27.0 L MCV 82.8 MCH 26.4 L MCHC 31.9 L RDW 15.6 H RDW Differential 47.0 H Plt Count 284 MPV 9.3 Immature Gran % (Auto) 0.700 Neut % (Auto) 83.7 H Lymph % (Auto) 10.2 L Snyder % (Auto) 4.3 Eos % (Auto) 1.0 Baso % (Auto) 0.1 Absolute Neuts (auto) 13.5 H Absolute Lymphs (auto) 1.65 Total Counted Not Reportable PT 41.4 H INR 4.3 H* Sodium 141 Potassium 4.8 Chloride 107 Carbon Dioxide 21.0 Anion Gap 13 BUN 73 H Creatinine 1.54 H Estim Creat Clear Calc 49.72 Est GFR (MDRD) Af Amer 58 L Est GFR (MDRD) Non-Af 48 L BUN/Creatinine Ratio 47.4 H Glucose 217 H Lactic Acid Calcium 9.9 Total Bilirubin 0.20 AST 10 L ALT 23 Alkaline Phosphatase 60 Total Protein 5.9 L Albumin 3.1 L Globulin 2.8 Albumin/Globulin Ratio 1.1 Lipase 233 Blood Type Antibody Screen Crossmatch 01/10/19 01/10/19 13:00 15:25 WBC RBC Hgb Hct MCV MCH MCHC RDW RDW Differential Plt Count MPV Immature Gran % (Auto) Neut % (Auto) Lymph % (Auto) Snyder % (Auto) Eos % (Auto) Baso % (Auto) Absolute Neuts (auto) Absolute Lymphs (auto) Total Counted PT INR Sodium Potassium Chloride Carbon Dioxide Anion Gap BUN Creatinine Estim Creat Clear Calc Est GFR (MDRD) Af Amer Est GFR (MDRD) Non-Af BUN/Creatinine Ratio Glucose Lactic Acid 5.3 H* Calcium Total Bilirubin AST ALT Alkaline Phosphatase Total Protein Albumin Globulin Albumin/Globulin Ratio Lipase Blood Type Pending Antibody Screen Pending Crossmatch See Detail Assessment/Plan All Active Problems Hypotension (Acute) Upper gastrointestinal bleed (Acute) Anemia due to acute blood loss (Acute) Hemorrhagic shock (Acute) Coagulopathy (Acute) Lactic acidosis (Acute) Wound dehiscence (Acute) H/O aortic valve repair (Resolved) H/O thoracic aortic aneurysm repair (Resolved) Nausea (Resolved) PAF (paroxysmal atrial fibrillation) (Resolved) anemia, tarry stools, I plan to perform upper endoscopy. The patient understands the risks, benefits, possible compliations and alternatives and concents to the procedure. He understands he has an allergy to propofol. I spoke with Dr Canales who will examine the operative/anesthetic record.
[2019-01-10 17:06] LABS: Reflex Lactate? Y
[2019-01-10] MEDS: 0.9% Normal Saline 1,000 ML 150 ML IV (17:53)
[2019-01-10 17:55] LABS: Bedside Glucose 146 mg/dL (70-110)
[2019-01-10 19:32] LABS: Hematocrit 23.4 % (40-54); Hemoglobin 7.5 g/dl (13.0-16.5); Mean Corp Hgb Conc 32.1 g/gl (32-36); Mean Corpuscular Hgb 26.8 pg (27.0-32.0); Mean Corpuscular Volume 83.6 fL (80-94); Mean Platelet Vol. 9.4 fl (6.2-12.0); Platelet Count 246 K/mm3 (150-450); RBC Distribution Width CV 15.6 % (11.6-14.6); RBC Distribution Width SD 47.4 fl (35.1-43.9); White Blood Count 14.9 K/mm3 (4.4-11.0)
[2019-01-10 19:42] LABS: Lactic Acid 4.1 mmol/L (0.4-2.0); Scan Indicated on CBC? Y/N NO
[2019-01-10 21:15] LABS: Bedside Glucose 144 mg/dL (70-110)
[2019-01-10 22:58] LABS: Reflex Lactate? Y
[2019-01-11] VITALS (13 sets, daily range): BP systolic 99–151; BP diastolic 44–69; PULSE 68–79; RESP 16–18; TEMP 36.3–37.2; O2SAT 97–99; BMI 35.3
[2019-01-11 00:23] LABS: Lactic Acid 2.4 mmol/L (0.4-2.0)
[2019-01-11 01:54] LABS: Hematocrit 25.4 % (40-54); Hemoglobin 8.1 g/dl (13.0-16.5); Mean Corp Hgb Conc 31.9 g/gl (32-36); Mean Corpuscular Hgb 26.9 pg (27.0-32.0); Mean Corpuscular Volume 84.4 fL (80-94); Mean Platelet Vol. 9.7 fl (6.2-12.0); Platelet Count 95 K/mm3 (150-450); RBC Distribution Width CV 15.9 % (11.6-14.6); RBC Distribution Width SD 48.4 fl (35.1-43.9); Red Blood Count 3.01 M/mm3 (4.6-6.2); Scan Indicated on CBC? Y/N NO; White Blood Count 11.7 K/mm3 (4.4-11.0)
--- NOTE | 2019-01-11 02:48 | NURSING ---
this RN is taking over care of this patient at this time
[2019-01-11] MEDS: 0.9% Normal Saline 1,000 ML 150 ML IV (03:37)
--- NOTE | 2019-01-11 05:55 | EKG12_ITS ---
Test Reason : AM EKG Blood Pressure : / mmHG Vent. Rate : 073 BPM Atrial Rate : 073 BPM P-R Int : 184 ms QRS Dur : 152 ms QT Int : 454 ms P-R-T Axes : 051 -48 011 degrees QTc Int : 500 ms Normal sinus rhythm Right bundle branch block Left anterior fascicular block Bifascicular block Abnormal ECG Confirmed by RONEY COLBERT, DAVE ([id number]), purchasing expeditor TRINY MAIER ([id number]) on 01/14/2019 12:40:53 PM Referred By: BRAXTON Confirmed By:DAVE SIM MD
--- NOTE | 2019-01-11 06:16 | NURSING ---
report given to ENDO
[2019-01-11 06:41] LABS: Bedside Glucose 125 mg/dL (70-110)
[2019-01-11 07:07] LABS: Hematocrit 24.3 % (40-54); Hemoglobin 7.8 g/dl (13.0-16.5); Mean Corp Hgb Conc 32.1 g/gl (32-36); Mean Corpuscular Hgb 26.9 pg (27.0-32.0); Mean Corpuscular Volume 83.8 fL (80-94); Mean Platelet Vol. 9.5 fl (6.2-12.0); Platelet Count 211 K/mm3 (150-450); RBC Distribution Width CV 15.4 % (11.6-14.6); White Blood Count 9.4 K/mm3 (4.4-11.0)
[2019-01-11 07:12] LABS: Scan Indicated on CBC? Y/N NO
[2019-01-11 07:20] LABS: International Normalized Ratio 1.2; Prothrombin Time (Protime)PT. 14.8 SECONDS (11.7-14.9)
[2019-01-11 07:22] LABS: Anion Gap 4 (5-15); BUN 52 mg/dL (7-18); BUN/Creat Ratio 43.7 RATIO (10-20); Calcium,Total 8.5 mg/dL (8.5-10.1); Chloride 113 mmol/L (98-107); Creatinine, Serum 1.19 mg/dL (0.70-1.30); EST Glomerular Filtration Rate 64 mL/min (>60); Est Glom Filt Rate - Afr Amer 77 mL/min (>60); Estimated Creatinine Clearance 64.35 ml/min; Glucose 117 mg/dL (74-106); Potassium 4.2 mmol/L (3.5-5.1); Sodium Level 140 mmol/L (136-145)
--- NOTE | 2019-01-11 07:50 | IMM_PTH ---
PATIENT: RICHARD ROY LOC: PCU U#:[id number] AGE/SX: 73/M ROOM: [facility] RE01/10/[address]: Dr. Ryan Tinoco MD : [id number] BED: 1 DIS: 01/11/2019 SPEC #: [id number] RECD: 01/13/19 07:48 STATUS: [place] REQ #: [id number] CAMILA: 01/11/19 07:[address]: Richard Jones DEPT: IMMUNOHISTOCHEMISTRY RECD BY: Shauna Alcazar ENTERED: 01/13/19 07:48 SP TYPE: IMMUNO OTHR DR: DO Dr. Chidi Bee III, MD Dr. Prakash Chand, MD Tissues: Stomach, NOS Procedures: H Pylori (initial) PHYSICIAN & INSTITUTION [place] [id number] SPECIMEN INFORMATION: Tissue Source: Antral biopsy Clinical Info: GI bleed Specimen Number: [id number] CPT code: 75271 METHODOLOGY: Deparaffinized sections of prefer/formalin-fixed tissue or PAP/DQ stained slides are incubated with monoclonal/polyclonal antibodies/oligonucleotide probes. Localization is made via biotin free immunoperoxidase method. Appropriate controls are performed and reacted as expected. Results on target cell population are indicated in the following table: RESULTS: ANTIBODY / CLONE RESULT H Pylori (polyclonal) negative These tests were developed and their performance characteristics determined by [facility]. They may not have been cleared or approved by the U.S. Food and Drug Administration. The FDA has determined that such clearance or approval is not necessary. INTERPRETATION: Antral biopsy: Negative for Helicobacter pylori organisms. AM:radhika 01/13/19
[2019-01-11] MEDS: Metoprolol(XL)Succ 200 MG Tablet PO (09:58)
[2019-01-11 11:25] LABS: Bedside Glucose 165 mg/dL (70-110)
--- NOTE | 2019-01-11 11:40 | PCM.DC ---
- Discharge Diagnoses Current Active Problems: Current Active and Chronic Problems Hypotension (Acute) Upper gastrointestinal bleed (Acute) Anemia due to acute blood loss (Acute) Hemorrhagic shock (Acute) Coagulopathy (Acute) Lactic acidosis (Acute) You will use the following diet at home:: Calorie/Carbohydrate Controlled (specify 1200, 1400, etc) - 1800 ADA diet, Cardiac Your food should be the consistency of: Regular Discharge Activity: May Not Drive - for 3 days Weight Bearing Status: Weight bearing as tolerated Call your doctor if you observe: Fever of 101 or Higher, Numbness or Tingling, Inability to urinate, Inability to have a bowel movement, Shortness of breath, Dizziness, Fainting spells, Swelling in the ankles, Chest pain, Increased palpitations (irregular heartbeat) Allergies/Adverse Reactions: Allergies propofol Adverse Reaction (Verified 01/10/19 12:22) Other Medications to take at Discharge Metoprolol(XL)Succ [Toprol Xl (Beta Red)] 200 mg PO DAILY 09/16/13 Losartan Potassium 50 mg PO DAILY 03/24/18 Metformin HCl [Metformin HCl ER] 1,000 mg PO BID 03/24/18 Atorvastatin Calcium [Lipitor] 40 mg PO QHS 05/22/18 Dulaglutide [Trulicity] 1.5 mg SQ QWEEK 05/22/18 Insulin Glargine [Lantus SoloStar Pen] 24 units SC DAILY 05/22/18 Insulin Lispro [Humalog KwikPen] See Protocol SQ 4X/DAY 05/22/18 Warfarin [Coumadin] 5 mg PO GARCIA 05/22/18 Aspirin [Aspirin, Baby] 81 mg PO DAILY@0800 #0 01/11/19 Ferrous Sulfate 325 mg PO BID #60 tab 01/11/19 Pantoprazole Sodium [Protonix] 40 mg PO BID #60 tab 01/11/19 Warfarin Sodium 7.5 mg PO MOTUWETHFRSA #0 01/11/19 The following prescriptions were given: Ferrous Sulfate 325 mg PO BID #60 tab Transmission Status: Pending to [id number] Pantoprazole Sodium [Protonix] 40 mg PO BID #60 tab Transmission Status: Pending to [id number] Primary Care Physician: Chidi Christian III, MD [Primary Care Provider] - Please follow up with your Primary Care Physician in: in 1 week Test Results: Test results from this visit will be discussed in further detail at your follow-up appointment, if applicable. Please Follow Up With: Mele Jones MD When: IN 1 week
--- NOTE | 2019-01-11 12:41 | DS.PCM_ITS ---
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 Summary of Care Provided: The patient is a 73 year old M with multiple comorbidities as listed above was admitted with melena essentially for last 1 month along with epigastric burning pain. Patient came to ER with hemoglobin 8.6, declined from 12.2 in November 2018. Patient denies hematochezia/hematemesis. Patient is on Coumadin for PE. In ED, INR was 4.3 and patient received 10 mg of IV vitamin K plus prothrombin complex concentrate. Lactic acid is 5.3. Patient never had prior EGD. Patient had colonoscopy by Dr. Olsen in 2010 and was unremarkable and was recommended follow-up was in 2020. Patient was admitted in PCU. 1. Acute upper GI bleed: Patient was put on Protonix drip in ER which was changed to 40 mg IV twice daily. Dr. Orourke was consulted. 2 units of PRBC transfused. Patient was adequately resuscitated with IV fluid. In ED blood pressure was 99/59. Patient had EGD in the morning and was found nonbleeding cratered duodenal ulcer with no stigmata of bleeding in the duodenal bulb. Lesion was 5 mm in largest dimension. Localized mild inflammation characterized by erosion, erythema was found in gastric antrum. Rest of exam normal. Overall impression healing duodenal ulcer and gastritis. Patient was recommended Protonix 40 mg twice daily for 2 weeks and follow-up with Dr. Orourke in 1 week. 2. Acute blood loss anemia * Patient was given 2 units of PRBC transfusion. H&H stable remained stable. Last H&H 8.5/26.2. Patient discharged on ferrous sulfate 325 mg p.o. twice daily. 3. Coagulopathy * S Coagulopathy secondary to Coumadin side effect was corrected with vitamin K and prothrombin complex concentrate mentioned above. The patient is discharge d on lower dose of Coumadin and starting 5 mg tomorrow and then 7.5 mg every day except Saturday 5 mg daily. Follow-up INR in 3 days with PCP 4. Lactic acidosis * Clinically does not meet criteria for hemorrhagic shock. Probably hypoperfusion from bleeding. * Hold metformin 5. Diabetes mellitus type 2 * continue with his basal insulin but at half the dose at 12 for now. Blood sugar control. 6. History of VTE * Mild mentionable 7. VTE prophylaxis: SCDs. 8. Advanced care planning: Asked patient about CPR, intubation and PEG tube. Patient states that he is open to CPR as well as intubation but no PEG tube if it were necessary. Therefore the patient is full CODE STATUS. Patient was admitted as inpatient but was discharged because of sooner recovery than expected. Patient wants to go home. Dr. Orourke agrees for discharge. Discharge medication reconciliation done. Discharge follow-up instructions completed. Discharge process discussed with the patient and all questions were answered to patient's satisfaction. Follow with PCP in [address] Orourke in 1 week Total time spent, exact 35 minutes on discharge meds reconciliation, examination, review of imaging and blood test and discussion with the patient on follow-up instructions. Subjective: Seen and examined. Patient does not have abdominal pain or heartburn. Patient states he does not take chronic NSAIDs but has taken occasional for few days Motrin. Patient is on aspirin and Coumadin. Patient has a history of thoracic aortic aneurysm most probably ascending aorta with graft and aortic valve repair surgery at [facility]. No documentation available to verify. Patient also has history of pulmonary embolism in September 2013 and is on Coumadin. - Physical Exam General: Alert, Oriented x3, Cooperative HEENT: Atraumatic, PERRLA, EOMI, Normocephalic Neck: Supple, No JVD, Negative Carotid Bruits Lungs: Clear to auscultation, No rhonchi, No wheeze, No rales, Diminished - Air entry is diminished in bilateral lung bases. Cardiovascular: Regular rate, Regular Rhythm, Normal S1, Normal S2, No murmurs Abdomen: Bowel Sounds Present, Soft, Non Tender, Non-Distended Extremities: Capillary Refill Less than 3 Seconds, Edema Skin: No rashes, No breakdown Musculoskeletal: No Tenderness to Palpation of Joints or Extremities, Arthritic Changes Neurological: Cranial nerves II-XII grossly intact Psych/Mental Status: Normal Affect, Appropriate Vital Signs Temp Pulse Resp BP Pulse Ox 97.5 F L 74 16 151/69 H 99 01/11/19 08:42 01/11/19 10:31 01/11/19 08:42 01/11/19 09:58 01/11/19 08:42 Oxygen Delivery Method Room Air Weight: 267 lb 13.786 oz Body Mass Index (BMI) 35.3 Finger Stick Blood Glucose 165 Intake and Output for Last 24 Hours 01/09/19 01/10/19 01/11/19 23:59 23:59 23:59 Intake Total 1955 / 1955 1644 / 1644 Output Total 350 / 350 Balance 1605 / 1605 1644 / 1644 Microbiology Past 72 Hours 01/10/19 13:00 Stool Occult Blood (KLAUS) - Final Stool Laboratory Tests Past 24 Hrs 01/10/19 01/10/19 01/10/19 13:00 13:00 13:00 WBC 16.1 H RBC 3.26 L Hgb 8.6 L Hct 27.0 L MCV 82.8 MCH 26.4 L MCHC 31.9 L RDW 15.6 H RDW Differential 47.0 H Plt Count 284 MPV 9.3 Immature Gran % (Auto) 0.700 Neut % (Auto) 83.7 H Lymph % (Auto) 10.2 L [place] % (Auto) 4.3 Eos % (Auto) 1.0 Baso % (Auto) 0.1 Absolute Neuts (auto) 13.5 H Absolute Lymphs (auto) 1.65 Total Counted Not Reportable PT 41.4 H INR 4.3 H* Sodium 141 Potassium 4.8 Chloride 107 Carbon Dioxide 21.0 Anion Gap 13 BUN 73 H Creatinine 1.54 H Estim Creat Clear Calc 49.72 Est GFR (MDRD) Af Amer 58 L Est GFR (MDRD) Non-Af 48 L BUN/Creatinine Ratio 47.4 H Glucose 217 H Lactic Acid Calcium 9.9 Total Bilirubin 0.20 AST 10 L ALT 23 Alkaline Phosphatase 60 Total Protein 5.9 L Albumin 3.1 L Globulin 2.8 Albumin/Globulin Ratio 1.1 Lipase 233 Blood Type Antibody Screen Crossmatch 01/10/19 01/10/19 01/10/19 13:00 15:25 18:51 WBC 14.9 H RBC 2.80 L Hgb 7.5 L Hct 23.4 L MCV 83.6 MCH 26.8 L MCHC 32.1 RDW 15.6 H RDW Differential 47.4 H Plt Count 246 MPV 9.4 Immature Gran % (Auto) Neut % (Auto) Lymph % (Auto) [place] % (Auto) Eos % (Auto) Baso % (Auto) Absolute Neuts (auto) Absolute Lymphs (auto) Total Counted PT INR Sodium Potassium Chloride Carbon Dioxide Anion Gap BUN Creatinine Estim Creat Clear Calc Est GFR (MDRD) Af Amer Est GFR (MDRD) Non-Af BUN/Creatinine Ratio Glucose Lactic Acid 5.3 H* Calcium Total Bilirubin AST ALT Alkaline Phosphatase Total Protein Albumin Globulin Albumin/Globulin Ratio Lipase Blood Type A POSITIVE Antibody Screen NEGATIVE Crossmatch See Detail 01/10/19 01/10/19 01/11/19 18:51 23:40 01:30 WBC 11.7 H RBC 3.01 L Hgb 8.1 L Hct 25.4 L MCV 84.4 MCH 26.9 L MCHC 31.9 L RDW 15.9 H RDW Differential 48.4 H Plt Count 95 L MPV 9.7 Immature Gran % (Auto) Neut % (Auto) Lymph % (Auto) [place] % (Auto) Eos % (Auto) Baso % (Auto) Absolute Neuts (auto) Absolute Lymphs (auto) Total Counted PT INR Sodium Potassium Chloride Carbon Dioxide Anion Gap BUN Creatinine Estim Creat Clear Calc Est GFR (MDRD) Af Amer Est GFR (MDRD) Non-Af BUN/Creatinine Ratio Glucose Lactic Acid 4.1 H* 2.4 H Calcium Total Bilirubin AST ALT Alkaline Phosphatase Total Protein Albumin Globulin Albumin/Globulin Ratio Lipase Blood Type Antibody Screen Crossmatch 01/11/19 01/11/19 01/11/19 06:51 06:51 06:51 WBC 9.4 RBC 2.90 L Hgb 7.8 L Hct 24.3 L MCV 83.8 MCH 26.9 L MCHC 32.1 RDW 15.4 H RDW Differential 45.0 H Plt Count 211 MPV 9.5 Immature Gran % (Auto) Neut % (Auto) Lymph % (Auto) [place] % (Auto) Eos % (Auto) Baso % (Auto) Absolute Neuts (auto) Absolute Lymphs (auto) Total Counted PT 14.8 INR 1.2 Sodium 140 Potassium 4.2 Chloride 113 H Carbon Dioxide 23.0 Anion Gap 4 L BUN 52 H Creatinine 1.19 Estim Creat Clear Calc 64.35 Est GFR (MDRD) Af Amer 77 Est GFR (MDRD) Non-Af 64 BUN/Creatinine Ratio 43.7 H Glucose 117 H Lactic Acid Calcium 8.5 Total Bilirubin AST ALT Alkaline Phosphatase Total Protein Albumin Globulin Albumin/Globulin Ratio Lipase Blood Type Antibody Screen Crossmatch 01/11/19 12:32 WBC Pending RBC Pending Hgb Pending Hct Pending MCV Pending MCH Pending MCHC Pending RDW Pending RDW Differential Pending Plt Count Pending MPV Immature Gran % (Auto) Neut % (Auto) Lymph % (Auto) [place] % (Auto) Eos % (Auto) Baso % (Auto) Absolute Neuts (auto) Absolute Lymphs (auto) Total Counted PT INR Sodium Potassium Chloride Carbon Dioxide Anion Gap BUN Creatinine Estim Creat Clear Calc Est GFR (MDRD) Af Amer Est GFR (MDRD) Non-Af BUN/Creatinine Ratio Glucose Lactic Acid Calcium Total Bilirubin AST ALT Alkaline Phosphatase Total Protein Albumin Globulin Albumin/Globulin Ratio Lipase Blood Type Antibody Screen Crossmatch POC Glucose 01/11/19 01/11/19 01/10/19 11:20 06:24 21:00 POC Glucose 165 H 125 H 144 H 01/10/19 17:52 POC Glucose 146 H Discharge Activity: May Not Drive - for 3 days Weight Bearing Status: Weight bearing as tolerated Call your doctor if you observe: Fever of 101 or Higher, Numbness or Tingling, Inability to urinate, Inability to have a bowel movement, Shortness of breath, Dizziness, Fainting spells, Swelling in the ankles, Chest pain, Increased p alpitations (irregular heartbeat) Home Medications: Medications to take at Discharge Metoprolol(XL)Succ [Toprol Xl (Beta Red)] 200 mg PO DAILY 09/16/13 Losartan Potassium 50 mg PO DAILY 03/24/18 Metformin HCl [Metformin HCl ER] 1,000 mg PO BID 03/24/18 Atorvastatin Calcium [Lipitor] 40 mg PO QHS 05/22/18 Dulaglutide [Trulicity] 1.5 mg SQ QWEEK 05/22/18 Insulin Glargine [Lantus SoloStar Pen] 24 units SC DAILY 05/22/18 Insulin Lispro [Humalog KwikPen] See Protocol SQ 4X/DAY 05/22/18 Warfarin [Coumadin] 5 mg PO GARCAI 05/22/18 Aspirin [Aspirin, Baby] 81 mg PO DAILY@0800 #0 01/11/19 Ferrous Sulfate 325 mg PO BID #60 tab 01/11/19 Pantoprazole Sodium [Protonix] 40 mg PO BID #60 tab 01/11/19 Warfarin Sodium 7.5 mg PO MOTUWETHFRSA #0 01/11/19 Following Prescrptions Were Given to Patient: Ferrous Sulfate 325 mg PO BID #60 tab Transmission Status: Received by [id number] Pantoprazole Sodium [Protonix] 40 mg PO BID #60 tab Transmission Status: Received by [id number] Primary Care Physician: Chidi Christian III, MD [Primary Care Provider] - Please follow up with your Primary Care Physician in: in 1 week Please Follow Up With: Mele Jones MD When: IN 1 week Medical Necessity - Tobacco Use Smoking Status: Never smoker Meaningful Use Info Meaningful Use Diagnoses (Choose all that apply): None applicable Code Visit Inpatient E&M: 58483 Disch Hosp
[2019-01-11 12:47] LABS: Hematocrit 26.2 % (40-54); Hemoglobin 8.5 g/dl (13.0-16.5); Mean Corp Hgb Conc 32.4 g/gl (32-36); Mean Corpuscular Hgb 27.2 pg (27.0-32.0); Mean Platelet Vol. 9.2 fl (6.2-12.0); Platelet Count 251 K/mm3 (150-450); RBC Distribution Width CV 15.8 % (11.6-14.6); Red Blood Count 3.12 M/mm3 (4.6-6.2); White Blood Count 12.5 K/mm3 (4.4-11.0)
[2019-01-11 12:48] LABS: Scan Indicated on CBC? Y/N NO
--- NOTE | 2019-01-12 15:08 | CASEMGMT ---
JACEY CM DC PHONE CALL DC DATE: 01/11/19 DC Disposition: Home Diagnosis on Discharge: Hypotension, UGIB, Anemia LACE/STRATA: 04/16 Attempted phone call, no answer. Message machine did not provide name identifier, no message left. Kelly CARRASCON RN ACM
--- NOTE | 2019-01-14 10:44 | OP.ENDO_ITS ---
01/14/2019 Chidi Christian [address] [place] [address] Re : Upper GI endoscopy procedure for Mele Szymanski Dear Dr. Christian This procedure was performed on Friday, January 11, 2019. My impressions and recommendations are as follows: Impressions : - Normal examined jejunum. - One non-bleeding duodenal ulcer with no stigmata of bleeding. - Gastritis. Biopsied. - Normal esophagus. Recommendations : - [facility]. - Use Protonix (pantoprazole) 40 mg PO daily. - Return to my office in 1 week. - Continue present medications. My findings are described in the full procedure note, which is enclosed. If I can be of further assistance, please feel free to contact me at Doctor phone number(s): , Work: . Sincerely, Mele Jones MD 01/11/2019 7:46:39 AM This report has been signed electronically.
== END 2019-01-11 13:48 | disposition home or self-care (01) | DRG 377 ==
LOC: ED 13:16 → ICU 14:34 → PCU 15:49
PROVIDERS: Surgery; Emergency Provider Physician Assistant Medical; Family Provider Family Medicine; PCP Family Medicine; Visit Provider Internal Medicine
PROC: 0DJ08ZZ Inspection of Upper Intestinal Tract, Via Natural or Artificial Opening Endoscopic (ICD-10-PCS; CPT 43235; principal; 2019-01-11 07:45)
DX: K26.4 Chronic or unspecified duodenal ulcer with hemorrhage (principal); R57.8 Other shock; I45.2 Bifascicular block; E87.2 Acidosis; D62 Acute posthemorrhagic anemia; K29.70 Gastritis, unspecified, without bleeding; E11.40 Type 2 diabetes mellitus with diabetic neuropathy, unspecified; E78.5 Hyperlipidemia, unspecified; I10 Essential (primary) hypertension; R79.1 Abnormal coagulation profile; Z79.4 Long term (current) use of insulin; Z86.711 Personal history of pulmonary embolism; Z79.01 Long term (current) use of anticoagulants
CPT/HCPCS: 36415; 80048; 80053; 82274; 82962; 83605; 83690; 85025; 85027; 85610; 86850; 86900; 86920; 86922; 88305; 88342; 93005; 97802; 99283; C9132; J7030; J7040; P9016; A4216; J3490

== ENCOUNTER 2019-03-17 20:46 | Emergency (ER) | payer MEDICARE, OTHER, SELFPAY ==
[2019-01-11 01:25] VITALS: BMI 35.3
[2019-03-17 20:47] VITALS: BP 157/81; PULSE 86; RESP 20; TEMP 36.8; O2SAT 97; BMI 35.6
--- NOTE | 2019-03-17 22:22 | CT_ITS ---
STUDY: CT ABDOMEN AND PELVIS WITHOUT CONTRAST REASON FOR EXAM: Male, 73 years old. Right flank pain. RADIATION DOSAGE (If Supplied By Facility): CTDIvol = ( 20.63 ) mGy, DLP = ( 1170.15 ) mGycm TECHNIQUE: Transaxial images were obtained from the dome of the diaphragm to the symphysis pubis without oral contrast, and without intravenous contrast. Sagittal and coronal images were reconstructed. Individualized dose optimization techniques were used for this CT. COMPARISON: None. FINDINGS: The visualized lung bases are unremarkable. There are coronary artery calcifications present. There are splenic and hepatic granulomas. There are gallstones within the gallbladder. Normal pancreas. Normal bilateral adrenal glands. There is right sided hydroureteronephrosis secondary to a 3 mm calculus within the distal right ureter. There are bilateral renal cysts. Normal visualized stomach. Normal small intestine. There are multiple colonic diverticula consistent with diverticulosis. There is non-visualization of the appendix. There is diffuse atherosclerotic calcification of the abdominal aorta, without a demonstrated aneurysm. Normal inferior vena cava. Normal retroperitoneum. Normal urinary bladder. Normal abdominal wall. There are diffuse degenerative changes of the visualized lumbar spine. CT/Abdomen/Pelvis without Cont IMPRESSION: Right hydroureteronephrosis secondary to a 3 mm calculus within the distal ureter. Cholelithiasis. Colonic diverticulosis. Atherosclerosis. Evidence of prior granulomatous disease. Electronically Signed: Ivelisse Santiago MD at 23:36 EDT Tel , Service support ,
--- NOTE | 2019-03-17 22:23 | ED.DCSUM_ITS ---
History of Present Illness Chief Complaint: Back Narrative: Patient is a 73-year-old male who presents with back pain. He complains of sharp right flank pain in my kidney area since yesterday. This slightly radiates around to the right lower abdomen. It is worse when he gets up and moves around but since he has been laying in the bed here his pain is nearly resolved. He also notes about a week and a half of diarrhea. He was having constipation and was taking a stool softener but he stopped this when the diar claudia began. He has been taking Pepto-Bismol frequently with last use yesterday. He had a bowel movement today which was formed but was coal black. He has had a couple of small bowel movement since that time which have had a normal appearance. He was recently admitted for an upper GI bleed. Endoscopy at that time showed a nonbleeding duodenal ulcer and gastric erosion. He is currently on Protonix. He was told that this was healing. He is on warfarin. He has had an aortic valve repair and states my aorta was replaced. Based on his description I suspect this was a graft. No fevers nausea vomiting chest pain shortness of breath lightheadedness. No urinary symptoms. He has a history of kidney stone prior but states this is nothing nearly as severe. Past Medical History - Allergies and Home Meds Allergies/Adverse Reactions: Allergies propofol Adverse Reaction (Verified 03/17/19 21:07) Other GETS AGGRESSIVE Primary Care Physician: Chidi Christian III, MD [Primary Care Provider] - Past Medical History: - - Hypertension, hyperlipidemia Surgical History: - - Repair of a thoracic aortic aneurysm and aortic valve repair in 2006. Patient also had an MRSA infection in his abdomen before and had quite extensive debridement. Smoking Status: Never smoker - Family History Maternal Family History: Reports: Heart Disease Review of Systems All systems negative except as indicated General: Denies: Fever Cardiovascular: Denies: Chest pain Respiratory: Denies: Dyspnea Gastrointestinal: Reports: Abdominal pain, Diarrhea, Constipation, Melena, - - Right flank pain. Denies: Nausea, Vomiting Skin: Denies: Rash Neurological: Denies: Headache Physical Exam Vital Signs/Narrative: Vital Signs Temp Pulse Resp BP Pulse Ox 03/17/19 20:47 98.2 F 86 20 H 157/81 H 97 General: Well nourished, Well developed Head: Normocephalic Eyes: EOMI ENT: Moist mucous membranes Neck: Supple Cardiovascular: Regular rate, Regular rhythm Respiratory: No distress, CTA bilaterally Abdomen: Soft, Nontender, Nondistended Rectal: Nontender, - - Light brown stool Back: Negative for: Nontender, CVA tenderness Skin: Normal color Neurological: Alert Psychological: Normal affect Diagnostic/Tx/Re-eval Impressions Abdomen/Pelvis CT 03/17/19 22:22 IMPRESSION: Right hydroureteronephrosis secondary to a 3 mm calculus within the distal ureter. Cholelithiasis. Colonic diverticulosis. Atherosclerosis. Evidence of prior granulomatous disease. Electronically Signed: Ivelisse Santiago MD at 23:36 EDT Tel , Service support , 03/17/19 22:22 Abdomen/Pelvis without Cont [CT] Stat 03/17/19 22:20 Stool Stool Occult Blood (KLAUS) - Final Laboratory Results 03/17/19 03/17/19 03/17/19 22:30 22:30 22:30 WBC 14.6 H RBC 4.59 L Hgb 11.2 L Hct 35.6 L MCV 77.6 L MCH 24.4 L MCHC 31.5 L RDW Std Deviation 39.7 RDW Coeff of Nathaniel 14.2 Plt Count 274 MPV 9.0 Immature Gran % (Auto) 0.600 Neut % (Auto) 79.9 H Lymph % (Auto) 9.3 L [place] % (Auto) 7.6 Eos % (Auto) 2.3 Baso % (Auto) 0.3 Absolute Neuts (auto) 11.7 H Absolute Lymphs (auto) 1.36 Nucleated RBC % 0 PT 21.7 H INR 1.9 Sodium 140 Potassium 4.5 Chloride 108 H Carbon Dioxide 24.0 Anion Gap 8 BUN 23 H Creatinine 2.12 H Estim Creat Clear Calc 36.12 Est GFR (MDRD) Af Amer 40 L Est GFR (MDRD) Non-Af 33 L BUN/Creatinine Ratio 10.8 Glucose 129 H Calcium 8.8 Total Bilirubin 0.50 AST 22 ALT 21 Alkaline Phosphatase 97 Total Protein 6.8 Albumin 3.3 Globulin 3.5 Albumin/Globulin Ratio 0.9 Urine Color Urine Clarity Urine pH Ur Specific [place] Urine Protein Urine Glucose (UA) Urine Ketones Urine Occult Blood Urine Nitrite Urine Bilirubin Urine Urobilinogen Ur Leukocyte Esterase Urine RBC Urine WBC Ur Squamous Epith Cells Urine Bacteria Urine Mucus 03/17/19 22:40 WBC RBC Hgb Hct MCV MCH MCHC RDW Std Deviation RDW Coeff of Nathaniel Plt Count MPV Immature Gran % (Auto) Neut % (Auto) Lymph % (Auto) [place] % (Auto) Eos % (Auto) Baso % (Auto) Absolute Neuts (auto) Absolute Lymphs (auto) Nucleated RBC % PT INR Sodium Potassium Chloride Carbon Dioxide Anion Gap BUN Creatinine Estim Creat Clear Calc Est GFR (MDRD) Af Amer Est GFR (MDRD) Non-Af BUN/Creatinine Ratio Glucose Calcium Total Bilirubin AST ALT Alkaline Phosphatase Total Protein Albumin Globulin Albumin/Globulin Ratio Urine Color Yellow Urine Clarity Sl. Cloudy Urine pH 5.0 Ur Specific [place] 1.020 Urine Protein 30 H Urine Glucose (UA) 250 H Urine Ketones 5 H Urine Occult Blood 250 H Urine Nitrite Negative Urine Bilirubin Negative Urine Urobilinogen Normal Ur Leukocyte Esterase 100 H Urine RBC 5-10 SEEN Urine WBC 0-5 SEEN Ur Squamous Epith Cells 0 SEEN Urine Bacteria 0 SEEN Urine Mucus RARE - Medical Decision Making Patient symptoms are well controlled at this time and he declined medications. His work-up as above is notable for white count of 14.6, creatinine is increased to 2.[address] does show a distal right ureteral calculus. I suspect his acute kidney injury is more likely related to hypovolemia with his recent week and a half of dehydration. He is eating and drinking well at this time. His diarrhea has resolved. His symptoms are well controlled. We discussed hospital observation for hydration and checking his blood work versus close outpatient follow-up. The patient will prefer to go home. I will contact the covering physician for his primary care to try to arrange close follow-up. Patient was also referred to urology. He understands to return for new or worsening symptoms and was instructed on signs and symptoms to monitor for. He was given Percocet here for pain as well as a prescription for short course of the same. I did advise him to avoid anti-inflammatories until his renal function is rechecked. ED Disposition - Plan for ED Patient: Disposition: Home or Assisted Living Diagnosis: Ureterolithiasis, ANTHONY (acute kidney injury) Instructions: KIDNEY STONE w/ Colic, DEHYDRATION (6y-Adult) Prescriptions: Oxycodone HCl/Acetaminophen [Percocet 5/325] 1 tab PO Q6H PRN PRN 3 Days #12 tab PRN Reason: Pain Prescription Printed Referrals: Chidi Christian III, MD [Primary Care Provider] -
[2019-03-17 22:40] VITALS: BP 149/84; PULSE 78; RESP 17; O2SAT 98
[2019-03-17 22:41] LABS: Absolute Lymphocyte Count 1.36 X10^3/uL (0.83-4.51); Absolute Neutrophil Count 11.7 X10^3/uL (2.0-7.7); Basophil# 0.04 X10^3/uL; Basophil% 0.3 % (0-1); Eosinophil# 0.33 X10^3/uL; Eosinophils% 2.3 % (0-5); Hematocrit 35.6 % (40-54); Hemoglobin 11.2 g/dL (13.0-16.5); Lymphocyte # 1.36 X10^3/ul (4.0); Lymphocyte % 9.3 % (19-41); Mean Corp Hgb Conc 31.5 g/dL (32-36); Mean Corpuscular Hgb 24.4 pg (27.0-32.0); Mean Corpuscular Volume 77.6 fL (80-94); Monocyte# 1.11 X10^3/uL; Monocyte% 7.6 % (0-10); NRBC Flagged by Analyzer 0 % (0-5); Neutrophil # 11.71 X10^3/uL (2.7-7.7); Neutrophil % 79.9 % (47-70); Platelet Count 274 K/mm3 (150-450); RBC Distribution Width CV 14.2 % (11.6-14.6); RBC Distribution Width SD 39.7 fl (35.1-43.9); Red Blood Count 4.59 M/mm3 (4.6-6.2); White Blood Count 14.6 K/mm3 (4.4-11.0)
[2019-03-17 22:49] LABS: International Normalized Ratio 1.9; Prothrombin Time (Protime)PT. 21.7 SECONDS (11.7-14.9)
[2019-03-17 22:49] LABS: Bacteria 0 SEEN /hpf (None Seen); Squamous Epithelial Cells - UA 0 SEEN /hpf (0-5)
[2019-03-17 22:51] LABS: Color, Urine Yellow (Yellow); Glucose, Dipstick 250 mg/dl (Normal); Ketone-Dipstick 5 mg/dl (Negative); Leukocyte Esterase-Dipstick 100 /ul (Negative); Nitrite-Dipstick Negative (Negative); Occult Blood-Urine 250 /ul (Negative); Protein-Dipstick 30 mg/dl (Negative); Urine Bilirubin Dipstick Negative (Negative); Urine Clarity Sl. Cloudy (Clear); Urine Urobilinogen Normal (Normal)
[2019-03-17 22:59] LABS: ALB/GLOB Ratio 0.9 RATIO (0.9-2.4); AST(SGOT) 22 U/L (15-37); Alanine Aminotransfer ALT/SGPT 21 U/L (16-61); Albumin, Serum 3.3 g/dL (3.2-5.0); Alkaline Phosphatase 97 U/L (45-117); Anion Gap 8 (5-15); BUN 23 mg/dL (7-18); BUN/Creat Ratio 10.8 RATIO (10-20); Calcium,Total 8.8 mg/dL (8.5-10.1); Chloride 108 mmol/L (98-107); Creatinine, Serum 2.12 mg/dL (0.70-1.30); EST Glomerular Filtration Rate 33 mL/min (>60); Est Glom Filt Rate - Afr Amer 40 mL/min (>60); Estimated Creatinine Clearance 36.12 ml/min; Globulin 3.5 g/dL (2.2-4.2); Glucose 129 mg/dL (74-106); Potassium 4.5 mmol/L (3.5-5.1); Protein, Total 6.8 g/dL (6.4-8.2); Sodium Level 140 mmol/L (136-145)
[2019-03-17 23:01] LABS: Mucous, Urine RARE /hpf (<or=2+); Red Blood Cells-Urine 5-10 SEEN /hpf (0-5); White Blood Cells 0-5 SEEN /hpf (0-5)
[2019-03-17] MEDS: 0.9% Normal Saline 1,000 ML 999 ML IV (23:19)
--- NOTE | 2019-03-17 23:55 | ED.DEP ---
ED Disposition - Plan for ED Patient: Disposition: Home or Assisted Living Diagnosis: Ureterolithiasis, ANTHONY (acute kidney injury) Instructions: DEHYDRATION (6y-Adult), KIDNEY STONE w/ Colic Prescriptions: Oxycodone HCl/Acetaminophen [Percocet 5/325] 1 tab PO Q6H PRN PRN 3 Days #12 tab PRN Reason: Pain Prescription Printed Referrals: Chidi Christian III, MD [Primary Care Provider] - Stefan Lizarraga MD [STAFF PHYSICIAN] -
[2019-03-17] MEDS: oxyCODONE 5 MG Tablet PO (23:59)
[2019-03-18 00:22] VITALS: BP 134/71; PULSE 76; RESP 17; O2SAT 98
== END 2019-03-18 00:23 | disposition home or self-care (01) ==
PROVIDERS: Emergency Provider Emergency Medicine; Family Provider Family Medicine; PCP Family Medicine
DX: N13.2 Hydronephrosis with renal and ureteral calculous obstruction (principal); N17.9 Acute kidney failure, unspecified; I10 Essential (primary) hypertension; E78.5 Hyperlipidemia, unspecified; Z87.442 Personal history of urinary calculi; Z79.01 Long term (current) use of anticoagulants; Z79.899 Other long term (current) drug therapy
CPT/HCPCS: 74176; 80053; 81001; 82274; 85025; 85610; 96360; 99285; J7030; A4216

== ENCOUNTER 2021-05-14 10:35 | Emergency (ER) | payer MEDICARE, OTHER, SELFPAY ==
[2021-05-14 10:35] VITALS: BP 151/79; PULSE 78; RESP 16; TEMP 36.7; O2SAT 98; BMI 34.2
--- NOTE | 2021-05-14 11:06 | CT_ITS ---
STUDY: CT ABDOMEN AND PELVIS WITHOUT CONTRAST REASON FOR EXAM: Male, 75 years old. Flank pain RADIATION DOSAGE (If Supplied By Facility): CTDIvol = ( 20.74 ) mGy, DLP = ( 1160.54 ) mGycm TECHNIQUE: Transaxial images were obtained from the dome of the diaphragm to the symphysis pubis without oral contrast, and without intravenous contrast. Sagittal and coronal images were reconstructed. Individualized dose optimization techniques were used for this CT. COMPARISON: 03/17/2019. FINDINGS: The visualized lung bases demonstrate calcified granuloma in the right middle lobe. The visualized portions of the heart are within normal limits. Calcified granuloma in the liver. Large gallstone is again seen. There are multiple benign calcified granulomata of the spleen. Normal pancreas. Normal bilateral adrenal glands. Mild to moderate right hydronephrosis with perinephric stranding is again seen due to 4 mm stone in the distal right ureter just proximal to the ureterovesical junction. Similar findings were noted previously. Normal left kidney. Normal visualized stomach. Normal small intestine. Fecal retention. Diverticulosis of the sigmoid colon without evidence of acute diverticulitis. There is non-visualization of the appendix. There is diffuse atherosclerotic calcification of the abdominal aorta, without a demonstrated aneurysm. Normal inferior vena cava. Normal retroperitoneum. The urinary bladder is not well-distended. There are prostatic calcifications. Normal abdominal wall. Degenerative changes in the spine. CT/Abdomen/Pelvis without Cont IMPRESSION: 1. Mild to moderate right hydronephrosis with extensive perinephric stranding due to 4 mm stone in the distal right ureter. Similar findings were noted previously. 2. Large gallstone. 3. Diverticulosis without evidence of acute diverticulitis. Electronically Signed: Jose Angel Chakraborty MD at 12:17 EDT Tel , Service support ,
--- NOTE | 2021-05-14 11:07 | EDS_ITS ---
HPI History of Present Illness Chief Complaint: Flank Pain Informant: patient and spouse/S.O. Narrative Narrative: 75-year-old male presents to the emergency department with right flank pain and urinary frequency. Symptoms began last evening and kept him up most of the night. He states that he is urinating only very small amounts but very frequently. He notes that the right flank pain is not present at the current time. He denies any dysuria or hematuria. No nausea or vomiting. He has a history of hypertension and aortic valve repair. He is on Coumadin due to pulmonary embolism. [facility] Medical History (Updated 05/14/21 @ 12:[address] Christ Berry, ) Aortic aneurysm without rupture Diabetes HTN (hypertension) Home Medications metoprolol succinate 200 mg PO DAILY 09/16/13 [History Last Taken 05/22/18] losartan 50 mg PO DAILY 03/24/18 [History Last Taken 05/22/18] metformin 1,000 mg PO BID 03/24/18 [History Last Taken 05/22/18] atorvastatin 40 mg PO QHS 05/22/18 [History Last Taken 05/21/18] dulaglutide [Trulicity] 1.5 mg SQ QWEEK 05/22/18 [History Last Taken 05/18/18] insulin glargine [Lantus Solostar U-100 Insulin] 24 units SUBCUT DAILY 05/22/18 [History Last Taken 05/22/18] insulin lispro [Humalog KwikPen Insulin] See Protocol SQ 4X/DAY 05/22/18 [History Last Taken 05/22/18] warfarin [Jantoven] 5 mg PO GARCIA 05/22/18 [History Last Taken 05/21/18] warfarin 7.5 mg PO MOTUWETHFRSA #0 01/11/19 [Rx Last Taken Unknown] pantoprazole 40 mg PO DAILY 03/17/19 [History Last Taken Unknown] hydrocodone-acetaminophen 1 tab PO Q6H PRN PRN 3 Days #12 tablet 05/14/21 [Rx Last Taken Unknown] ondansetron 4 mg PO Q8H PRN PRN #10 tab 05/14/21 [Rx Last Taken Unknown] Allergy/AdvReac Type Severity Reaction Status Date / Time propofol AdvReac Other Verified 05/14/21 10:38 Social History (Updated 05/14/21 @ 11:[address] Christ Berry, DO) Smoking Status: Never smoker substance use type: does not use ROS ROS ED Constitutional Constitutional ED: Denies chills or weight loss Eyes Eyes: Denies change in vision or diplopia ENT ENT ED: Denies ear pain, rhinorrhea or sore throat Cardiovascular Cardiovascular: Denies chest pain, orthopnea, palpitations or racing heartbeat Respiratory/Chest Respiratory/Chest: Denies cough, dyspnea or orthopnea Gastrointestinal Gastrointestinal: Denies abdominal pain, diarrhea, nausea or vomiting Genitourinary Genitourinary ED: Reports urinary frequency; Denies dysuria or hematuria Musculoskeletal Musculoskeletal: Reports back pain; Denies arthralgias or myalgias Integumentary Denies abscess or rash Neurologic Neurologic: Denies headache(s) or weakness Psychiatric Psychiatric: Denies anxiety, depression, suicidal ideation or suicidal thoughts Endocrine Endocrinology: Denies polydipsia, polyphagia or polyuria Allergic/Immunologic Allergic/Immunologic ED: Denies mouth swelling, tongue swelling or urticaria EXAM Physical Exam Const Vital Signs: 05/14/21 10:35 Temperature 98.1 F Temperature Source Temporal Pulse Rate 78 Respiratory Rate 16 Blood Pressure 151/79 H Blood Pressure Mean 103 Pulse Ox 98 Oxygen Delivery Method Room Air Positive well nourished, well developed and obese General Appearance ED: well developed Nutritional Appearance: obese HEENT Reports normocephalic, head/scalp atraumatic, TM's clear and moist mucous membranes Negative for trauma Tympanic Membrane ED: Yes TM's clear Eyes PERRL and EOMs intact bilaterally Neck no lymphadenopathy, supple and no JVD Resp normal respiratory effort and clear to auscultation bilaterally Cardio regular rate, regular rhythm and no murmurs GI normal to inspection, nondistended, normoactive bowel sounds and non-tender Palpation: soft Back/Spine no CVA tenderness and normal ROM Lumbar Spine / Lower Back: Negative for lumbar spinal tenderness Extremity normal to inspection General Extremety ED: Negative for edema General Extremity: Negative for edema Neuro oriented x3 and CN's II-XII intact bilaterally Sensorium / Orientation: alert Motor Exam: strength 5/5 throughout Psych mental status grossly normal Mood & Affect: Negative for depressed or tearful Skin no rashes or lesions noted and no wounds MDM MDM MDM Narrative Medical decision making narrative: INR is 2.9. White count 12.3. Creatinine 1.77 with a BUN of 23. Patient had a very hard time producing enough urine for us to sample. When he did the urine specimen was negative. Patient received T oradol and IV fluids. CT of the abdomen pelvis demonstrates a distal right ureteral stone measuring approximately 4 mm with associated hydronephroureter. All right for the patient have pain and nausea medication return if worsening or concerns Lab Data Attestation: I reviewed the patient's lab results. Labs: Laboratory Results - last 24 hr 05/14/21 05/14/21 05/14/21 11:15 11:15 11:15 WBC 12.3 H RBC 5.35 Hgb 14.3 Hct 44.6 MCV 83.4 MCH 26.7 L MCHC 32.1 RDW Std Deviation 42.3 RDW Coeff of Nathaniel 14.0 Plt Count 249 MPV 9.1 Immature Gran % (Auto) 1.000 H Neut % (Auto) 84.7 H Lymph % (Auto) 6.6 L [place] % (Auto) 6.0 Eos % (Auto) 1.3 Baso % (Auto) 0.4 Absolute Neuts (auto) 10.4 H Absolute Lymphs (auto) 0.81 L Nucleated RBC % 0 PT 29.8 H INR 2.9 Sodium 139 Potassium 3.8 Chloride 108 H Carbon Dioxide 22.0 Anion Gap 9 BUN 23 H Creatinine 1.77 H Estim Creat Clear Calc 42.01 Est GFR (MDRD) Af Amer 49 L Est GFR (MDRD) Non-Af 40 L BUN/Creatinine Ratio 13.0 Glucose 239 H Calcium 8.6 Total Bilirubin 0.80 AST 11 L ALT 19 Alkaline Phosphatase 106 Total Protein 6.6 Albumin 3.1 L Globulin 3.5 Albumin/Globulin Ratio 0.9 Urine Color Urine Clarity Urine pH Ur Specific [place] Urine Protein Urine Glucose (UA) Urine Ketones Urine Occult Blood Urine Nitrite Urine Bilirubin Urine Urobilinogen Ur Leukocyte Esterase Urine RBC Urine WBC Ur Squamous Epith Cells Urine Bacteria Urine Mucus Urine Yeast 05/14/21 13:20 WBC RBC Hgb Hct MCV MCH MCHC RDW Std Deviation RDW Coeff of Nathaniel Plt Count MPV Immature Gran % (Auto) Neut % (Auto) Lymph % (Auto) [place] % (Auto) Eos % (Auto) Baso % (Auto) Absolute Neuts (auto) Absolute Lymphs (auto) Nucleated RBC % PT INR Sodium Potassium Chloride Carbon Dioxide Anion Gap BUN Creatinine Estim Creat Clear Calc Est GFR (MDRD) Af Amer Est GFR (MDRD) Non-Af BUN/Creatinine Ratio Glucose Calcium Total Bilirubin AST ALT Alkaline Phosphatase Total Protein Albumin Globulin Albumin/Globulin Ratio Urine Color Yellow Urine Clarity Clear Urine pH 5.0 Ur Specific [place] 1.025 Urine Protein 30 H Urine Glucose (UA) 250 H Urine Ketones 5 H Urine Occult Blood 250 H Urine Nitrite Negative Urine Bilirubin Negative Urine Urobilinogen 1 H Ur Leukocyte Esterase Negative Urine RBC 0-5 SEEN Urine WBC 0 SEEN Ur Squamous Epith Cells 0-5 SEEN Urine Bacteria RARE Urine Mucus 0 SEEN Urine Yeast RARE Radiography Diagnostic Testing: Clinical Impression(s) from Imaging Studies Abdomen/Pelvis CT 05/14/21 11:06 IMPRESSION: 1. Mild to moderate right hydronephrosis with extensive perinephric stranding due to 4 mm stone in the distal right ureter. Similar findings were noted previously. 2. Large gallstone. 3. Diverticulosis without evidence of acute diverticulitis. Electronically Signed: Jose Angel Chakraborty MD at 12:17 EDT Tel , Service support , Discharge Plan Triage Chief Complaint: Flank Pain ED Provider: Christ Berry Dx/Rx/DC Orders Clinical Impression: Ureterolithiasis, Renal colic on right side Instructions: What Are Gallstones, ED Kidney Stone w/ Colic Prescriptions: New hydrocodone-acetaminophen [hydrocodone-acetaminophen] 1 TABLET tablet 1 tab PO Q6H PRN PRN (Reason: Pain) 3 Days Qty: 12 RF: 0 ondansetron [ondansetron] 4 MG tablet 4 mg PO Q8H PRN PRN (Reason: Nausea) Qty: 10 RF: 0 No Action metoprolol succinate 200 MG tablet 200 mg PO DAILY RF: 0 losartan 50 MG tablet 50 mg PO DAILY RF: 0 metformin 500 MG tablet,ER [email or web address] 24 hr 1,000 mg PO BID RF: 0 insulin lispro [Humalog KwikPen Insulin] 100 UNIT/ML insulin pen See Protocol unit SQ 4X/DAY RF: 0 dulaglutide [Trulicity] 1.5 MG/0.5 ML pen injector 1.5 mg SQ QWEEK RF: 0 atorvastatin 40 MG tablet 40 mg PO QHS RF: 0 warfarin [Jantoven] 5 MG tablet 5 mg PO GARCIA RF: 0 insulin glargine [Lantus Solostar U-100 Insulin] 100 UNITS/ML insulin pen 24 units subcut DAILY RF: 0 warfarin 10 MG tablet 7.5 mg PO MOTUWETHFRSA Qty: 0 RF: 0 pantoprazole 40 MG tablet 40 mg PO DAILY RF: 0 Primary Care Provider: Luis Caldera Referrals: Stefan Lizarraga MD [STAFF PHYSICIAN] - 3-5 Days if not improving Luis Caldera MD [Primary Care Provider] - As Needed Disposition Disposition: Home, Self Care
[2021-05-14 11:23] LABS: Absolute Lymphocyte Count 0.81 X10^3/uL (0.83-4.51); Absolute Neutrophil Count 10.4 X10^3/uL (2.0-7.7); Basophil# 0.05 X10^3/uL; Basophil% 0.4 % (0-1); Eosinophil# 0.16 X10^3/uL; Eosinophils% 1.3 % (0-5); Hematocrit 44.6 % (40-54); Hemoglobin 14.3 g/dL (13.0-16.5); Lymphocyte # 0.81 X10^3/ul (0.83-4.51); Lymphocyte % 6.6 % (19-41); Mean Corp Hgb Conc 32.1 g/dL (32-36); Mean Corpuscular Hgb 26.7 pg (27.0-32.0); Mean Corpuscular Volume 83.4 fL (80-94); Mean Platelet Vol. 9.1 fl (6.2-12.0); Monocyte# 0.74 X10^3/uL; NRBC Flagged by Analyzer 0 % (0-5); Neutrophil # 10.44 X10^3/uL (2.7-7.7); Neutrophil % 84.7 % (47-70); Platelet Count 249 K/mm3 (150-450); RBC Distribution Width SD 42.3 fl (35.1-43.9); Red Blood Count 5.35 M/mm3 (4.6-6.2); White Blood Count 12.3 K/mm3 (4.4-11.0)
[2021-05-14 11:30] LABS: International Normalized Ratio 2.9; Prothrombin Time (Protime)PT. 29.8 SECONDS (11.7-14.9)
[2021-05-14 11:38] LABS: ALB/GLOB Ratio 0.9 RATIO (0.9-2.4); AST(SGOT) 11 U/L (15-37); Alanine Aminotransfer ALT/SGPT 19 U/L (16-61); Albumin, Serum 3.1 g/dL (3.2-5.0); Alkaline Phosphatase 106 U/L (45-117); Anion Gap 9 (5-15); BUN 23 mg/dL (7-18); Calcium,Total 8.6 mg/dL (8.5-10.1); Chloride 108 mmol/L (98-107); Creatinine, Serum 1.77 mg/dL (0.70-1.30); EST Glomerular Filtration Rate 40 mL/min (>60); Est Glom Filt Rate - Afr Amer 49 mL/min (>60); Estimated Creatinine Clearance 42.01 ml/min; Globulin 3.5 g/dL (2.2-4.2); Glucose 239 mg/dL (74-106); Potassium 3.8 mmol/L (3.5-5.1); Protein, Total 6.6 g/dL (6.4-8.2); Sodium Level 139 mmol/L (136-145)
[2021-05-14] MEDS: Ketorolac 15 MG/ML Vial IV (11:53)
[2021-05-14 13:26] LABS: Mucous, Urine 0 SEEN /hpf (<or=2+); White Blood Cells 0 SEEN /hpf (0-5)
[2021-05-14 13:28] LABS: Color, Urine Yellow (Yellow); Glucose, Dipstick 250 mg/dl (Normal); Ketone-Dipstick 5 mg/dl (Negative); Leukocyte Esterase-Dipstick Negative /ul (Negative); Nitrite-Dipstick Negative (Negative); Occult Blood-Urine 250 /ul (Negative); Protein-Dipstick 30 mg/dl (Negative); Specific Gravity, Urine 1.025 (1.002-1.030); Urine Bilirubin Dipstick Negative (Negative); Urine Clarity Clear (Clear); Urine Urobilinogen 1 mg/dl (Normal)
[2021-05-14 13:37] LABS: Bacteria RARE /hpf (None Seen); Red Blood Cells-Urine 0-5 SEEN /hpf (0-5); Squamous Epithelial Cells - UA 0-5 SEEN /hpf (0-5); Yeast-Urine RARE /hpf (None Seen)
[2021-05-14 14:06] VITALS: BP 138/87; PULSE 74; RESP 16; O2SAT 98
== END 2021-05-14 14:07 | disposition home or self-care (01) ==
PROVIDERS: Emergency Provider Emergency Medicine; PCP Family Medicine
DX: N13.2 Hydronephrosis with renal and ureteral calculous obstruction (principal)
CPT/HCPCS: 74176; 80053; 81001; 85025; 85610; 96374; 99283; J7040; A4216

== ENCOUNTER 2021-12-06 22:58 | Emergency (ER) | payer MEDICARE, OTHER, SELFPAY ==
[2021-12-06 22:59] VITALS: BP 149/78; PULSE 90; RESP 16; TEMP 36.5; O2SAT 99; BMI 33.6
--- NOTE | 2021-12-06 23:10 | EKG12_ITS ---
Test Reason : DYSRHYTHMIA Blood Pressure : / mmHG Vent. Rate : 081 BPM Atrial Rate : 081 BPM P-R Int : 192 ms QRS Dur : 150 ms QT Int : 410 ms P-R-T Axes : 086 -61 043 degrees QTc Int : 476 ms Normal sinus rhythm Right bundle branch block Left anterior fascicular block Bifascicular block Abnormal ECG Confirmed by ANISA COLBERT, YECENIA ([id number]), sports editor SOFIA CAMERON ([id number]) on 12/07/2021 11:25:12 AM Referred By: RU Confirmed By:YECENIA LANGE MD
--- NOTE | 2021-12-06 23:11 | EDS_ITS ---
HPI History of Present Illness Chief Complaint: Weakness Detail of Chief Complaint: Generalized weakness x2 days Informant: patient Narrative Narrative: Patient presents to the emergency department complaint generalized weakness that started 2 days ago. Today patient noticed that he could not get out of his recliner which was unusual. Patient started with a cough today. He denies any fever. He denies vomiting or diarrhea. He denies chest pain or shortness of breath. He denies focal weakness. Patient denies blood in his stool or black tarry stool. Denies feeling lightheaded or dizzy. Patient has had his COVID-vaccine and booster. Denies sick contacts. Prior similar symptoms: No PFSH PFS Medical History (Updated 12/07/21 @ 00:[address] Enrique France DO) Aortic aneurysm without rupture Diabetes HTN (hypertension) Home Medications metoprolol succinate 200 mg PO DAILY 09/16/13 [History Last Taken 05/22/18] losartan 50 mg PO DAILY 03/24/18 [History Last Taken 05/22/18] metformin 1,000 mg PO BID 03/24/18 [History Last Taken 05/22/18] Trulicity 1.5 mg SQ QWEEK 05/22/18 [History Last Taken 05/18/18] atorvastatin 40 mg PO QHS 05/22/18 [History Last Taken 05/21/18] insulin glargine [Lantus Solostar U-100 Insulin] 24 units SUBCUT DAILY 05/22/18 [History Last Taken 05/22/18] insulin lispro [Humalog KwikPen Insulin] See Protocol SQ 4X/DAY 05/22/18 [History Last Taken 05/22/18] warfarin [Jantoven] 7.5 mg PO MOTUTHFRSA 05/22/18 [History Last Taken 05/21/18] warfarin 10 mg PO SUWE 12/06/21 [History Last Taken Unknown] Allergy/AdvReac Type Severity Reaction Status Date / Time propofol AdvReac Other Verified 12/06/21 23:02 Social History (Updated 05/14/21 @ 11:[address] Christ Berry DO) Smoking Status: Never smoker substance use type: does not use ROS ROS ED Constitutional Constitutional ED: Reports systems reviewed and no addt'l complaints, except as documented; Denies body ache(s), change in weight or chills Eyes Eyes: Denies acute decrease in peripheral vision, change in vision, double vision or loss of vision ENT ENT ED: Reports none; Denies ear pain, lip swelling, loss taste/smell, neck pain, otalgia or sore throat Cardiovascular Cardiovascular: Reports none; Denies abdominal pain, chest pain with activity, leg edema, lightheadedness, palpitations, rapid heart rate or syncope Respiratory/Chest Respiratory/Chest: Reports none and cough; Denies change in mental status, dry cough, dyspnea, hemoptysis, shortness of breath at rest or shortness of breath with exertion Gastrointestinal Gastrointestinal: Reports none; Denies abdominal pain, change in stool character, diarrhea, hematemesis, hematochezia, melena, rectal bleeding or vomiting Genitourinary Genitourinary ED: Reports none; Denies abdominal discomfort, anuria, dysuria, genital pain or polyuria Musculoskeletal Musculoskeletal: Reports none; Denies arthralgias, back pain, difficulty walking, extremity pain, muscle weakness or myalgias Integumentary Reports none; Denies abscess or rash Neurologic Neurologic: Reports none and weakness; Denies abnormal gait, confusion, focal weakness, frequent falls, headache(s), loss of vision, numbness, paresthesias, radicular pain or vertigo Psychiatric Psychiatric: Reports systems reviewed and no addt'l complaints, except as documented and none; Denies behavioral changes, confusion, difficulty concentrating, hallucinations, suicidal ideation, tactile hallucinations or visual hallucinations Endocrine Endocrinology: Denies none, cold intolerance, excessive sweating, fatigue or heat intolerance Hematologic/Lymphatic Hematologic/Lymphatic: Reports none; Denies anemia, easy bleeding or easy bruising Allergic/Immunologic Allergic/Immunologic ED: Denies as per HPI, none, lip swelling, mouth swelling, throat swelling, tongue swelling or hives EXAM Physical Exam Const Vital Signs: 12/06/21 22:59 12/06/21 23:07 Temperature 97.7 F L Temperature Source Temporal Pulse Rate 90 Respiratory Rate 16 Respiratory Effort Normal Non-Labored Blood Pressure 149/78 H Blood Pressure Mean 101 Pulse Ox 99 Oxygen Delivery Method Room Air Positive well nourished and well developed General Appearance ED: well developed and NAD HEENT Reports TM's clear and moist mucous membranes normocephalic and atraumatic; Negative for trauma or tenderness Tympanic Membrane ED: Yes TM's clear Eyes PERRL and EOMs intact bilaterally General Eye ED: Negative for pale conjunctiva or scleral icterus Neck no lymphadenopathy, supple and no JVD General: Negative for tenderness Chest Wall inspection of chest normal and palpation of chest normal Chest: Negative for tenderness Resp normal respiratory effort and clear to auscultation bilaterally Effort and Inspection: Negative for respiratory distress or pain with movement Auscultation: Negative for rhonchi, wheezes or diminished lung sounds Cardio regular rate, regular rhythm, S1 normal heart sound, S2 normal heart sound and no murmurs Peripheral Pulses: pulses 2+ throughout GI normal to inspection, nondistended, normoactive bowel sounds, soft to palpation, non-tender, non-distended and no masses Back/Spine no CVA tenderness and no thoracic nor lumbar tenderness Extremity normal to inspection General Extremety ED: Negative for edema General Extremity: Negative for edema Neuro oriented x3, CN's II-XII intact bilaterally, no sensory deficits noted and gait normal Sensorium / Orientation: awake, alert, oriented to person, oriented to place and oriented to time Motor Exam: strength 5/5 throughout and strength abnormal Psych mental status grossly normal Skin no rashes or lesions noted and no wounds MDM MDM MDM Narrative Medical decision making narrative: IV line established on arrival. Lab work-up was unremarkable. INR was 3.3. Patient was positive for COVID-19 on rapid antigen test. Patient urinalysis was unremarkable. Chest x-ray 1 view obtained interpreted by myself no acute disease process. Official report from radiology pending. This point patient is comfortable going home. Patient advised to follow-up with his primary care physician 5 to 7 days. He is advised to return if increasing shortness of breath or condition should worsen anyway. Lab Data Attestation: I reviewed the patient's lab results. Labs: Laboratory Results - last 24 hr 12/06/21 12/06/21 12/06/21 00:15 23:27 23:27 WBC 9.3 RBC 5.07 Hgb 13.8 Hct 42.1 MCV 83.0 MCH 27.2 MCHC 32.8 RDW Std Deviation 42.4 RDW Coeff of Nathaniel 14.0 Plt Count 229 MPV 9.2 Immature Gran % (Auto) 3.000 H Neut % (Auto) 81.2 H Lymph % (Auto) 4.5 L [place] % (Auto) 8.6 Eos % (Auto) 2.3 Baso % (Auto) 0.4 Absolute Neuts (auto) 7.5 Absolute Lymphs (auto) 0.42 L Nucleated RBC % 0 Differential Comment SCANNED PT 32.9 H INR 3.3 Sodium Potassium Chloride Carbon Dioxide Anion Gap BUN Creatinine Estim Creat Clear Calc Est GFR (MDRD) Af Amer Est GFR (MDRD) Non-Af BUN/Creatinine Ratio Glucose Calcium Troponin I High Sens Urine Color Yellow Urine Clarity Clear Urine pH 5.0 Ur Specific [place] 1.025 Urine Protein 30 H Urine Glucose (UA) 100 H Urine Ketones 5 H Urine Occult Blood 10 H Urine Nitrite Negative Urine Bilirubin Negative Urine Urobilinogen 1 H Ur Leukocyte Esterase 25 H Urine RBC 0 SEEN Urine WBC 0-5 SEEN Ur Squamous Epith Cells 0-5 SEEN Urine Bacteria 1+ Urine Mucus 0 SEEN 12/06/21 23:27 WBC RBC Hgb Hct MCV MCH MCHC RDW Std Deviation RDW Coeff of Nathaniel Plt Count MPV Immature Gran % (Auto) Neut % (Auto) Lymph % (Auto) [place] % (Auto) Eos % (Auto) Baso % (Auto) Absolute Neuts (auto) Absolute Lymphs (auto) Nucleated RBC % Differential Comment PT INR Sodium 138 Potassium 3.7 Chloride 105 Carbon Dioxide 24.0 Anion Gap 9 BUN 17 Creatinine 1.20 Estim Creat Clear Calc 61.03 Est GFR (MDRD) Af Amer 76 Est GFR (MDRD) Non-Af 63 BUN/Creatinine Ratio 14.2 Glucose 138 H Calcium 8.9 Troponin I High Sens 5 Urine Color Urine Clarity Urine pH Ur Specific [place] Urine Protein Urine Glucose (UA) Urine Ketones Urine Occult Blood Urine Nitrite Urine Bilirubin Urine Urobilinogen Ur Leukocyte Esterase Urine RBC Urine WBC Ur Squamous Epith Cells Urine Bacteria Urine Mucus Radiography Chest X-Ray - ED: 1 View Diagnostic Testin view chest x-ray obtained interpreted by myself no acute disease process. Radiology felt there was some ill-defined densities nodular in appearance in the right lower lobe that may be infectious. This point I suspect this is all COVID-related and do not feel patient requires any antibiotics. EKG Initial EKG: Attestation: I personally reviewed and interpreted this EKG as follows: Comments: Sinus rhythm with a rate of 81 bpm with right bundle branch block and left anterior fascicular block Discharge Plan Triage Chief Complaint: Weakness ED Provider: Enrique France Dx/Rx/DC Orders Clinical Impression: COVID-19, Weakness Instructions: Caring for Someone Who Has COVID-19 Prescriptions: No Action metoprolol succinate 200 MG tablet 200 mg PO DAILY RF: 0 losartan 50 MG tablet 50 mg PO DAILY RF: 0 metformin 500 MG tablet,ER [email or web address] 24 hr 1,000 mg PO BID RF: 0 insulin lispro [Humalog KwikPen Insulin] 100 UNIT/ML insulin pen See Protocol unit SQ 4X/DAY RF: 0 Trulicity 1.5 MG/0.5 ML pen injector 1.5 mg SQ QWEEK RF: 0 atorvastatin 40 MG tablet 40 mg PO QHS RF: 0 warfarin [Jantoven] 5 MG tablet 7.5 mg PO MOTUTHFRSA RF: 0 insulin glargine [Lantus Solostar U-100 Insulin] 100 UNITS/ML insulin pen 24 units subcut DAILY RF: 0 warfarin 10 MG tablet 10 mg PO SUWE RF: 0 Primary Care Provider: Luis Caldera Referrals: Luis Caldera MD [Primary Care Provider] - 5-7 Days Disposition Disposition: Home, Self Care
--- NOTE | 2021-12-06 23:34 | RAD_ITS ---
STUDY: X-RAY CHEST REASON FOR EXAM: Male, 76 years old. cough TECHNIQUE: 1 view COMPARISON: 09/17/2013 FINDINGS: Cardiomediastinal silhouette is unremarkable. Costophrenic angles are sharp. There appear to be small ill-defined nodular opacities in the left midlung zone, new compared to the prior study. The trachea is midline. There is no pneumothorax. Sternotomy wires are intact. RAD/Chest 1 View (Portable) IMPRESSION: New ill-defined nodular opacities in the left midlung zone, likely of infectious etiology. Follow-up chest x-ray to resolution is recommended. Electronically Signed: Azam Winn MD at 0:38 EDT ,
[2021-12-06 23:45] LABS: Absolute Lymphocyte Count 0.42 X10^3/uL (0.83-4.51); Absolute Neutrophil Count 7.5 X10^3/uL (2.0-7.7); Basophil# 0.04 X10^3/uL; Basophil% 0.4 % (0-1); Eosinophil# 0.21 X10^3/uL; Eosinophils% 2.3 % (0-5); Hematocrit 42.1 % (40-54); Hemoglobin 13.8 g/dL (13.0-16.5); Lymphocyte # 0.42 X10^3/ul (0.83-4.51); Lymphocyte % 4.5 % (19-41); Mean Corp Hgb Conc 32.8 g/dL (32-36); Mean Corpuscular Hgb 27.2 pg (27.0-32.0); Mean Platelet Vol. 9.2 fl (6.2-12.0); Monocyte% 8.6 % (0-10); NRBC Flagged by Analyzer 0 % (0-5); Neutrophil # 7.54 X10^3/uL (2.7-7.7); Neutrophil % 81.2 % (47-70); POSITIVE DIFFERENTIAL YES; Platelet Count 229 K/mm3 (150-450); RBC Distribution Width SD 42.4 fl (35.1-43.9); Red Blood Count 5.07 M/mm3 (4.6-6.2); White Blood Count 9.3 K/mm3 (4.4-11.0)
[2021-12-06] MEDS: 0.9% Normal Saline 1,000 ML 150 ML IV (23:45)
[2021-12-06 23:46] LABS: Differential Indicated SCAN CRITERIA MET
[2021-12-06 23:55] LABS: International Normalized Ratio 3.3; Prothrombin Time (Protime)PT. 32.9 SECONDS (11.7-14.9)
[2021-12-07 00:07] LABS: Anion Gap 9 (5-15); BUN 17 mg/dL (7-18); BUN/Creat Ratio 14.2 RATIO (10-20); Calcium,Total 8.9 mg/dL (8.5-10.1); Chloride 105 mmol/L (98-107); EST Glomerular Filtration Rate 63 mL/min (>60); Est Glom Filt Rate - Afr Amer 76 mL/min (>60); Estimated Creatinine Clearance 61.03 ml/min; Glucose 138 mg/dL (74-106); Potassium 3.7 mmol/L (3.5-5.1); Sodium Level 138 mmol/L (136-145); Troponin-I HS 5 pg/mL (3.0-78.0)
[2021-12-07 00:20] LABS: Color, Urine Yellow (Yellow); Glucose, Dipstick 100 mg/dl (Normal); Ketone-Dipstick 5 mg/dl (Negative); Leukocyte Esterase-Dipstick 25 /ul (Negative); Mucous, Urine 0 SEEN /hpf (<or=2+); Nitrite-Dipstick Negative (Negative); Occult Blood-Urine 10 /ul (Negative); Protein-Dipstick 30 mg/dl (Negative); Red Blood Cells-Urine 0 SEEN /hpf (0-5); Specific Gravity, Urine 1.025 (1.002-1.030); Urine Bilirubin Dipstick Negative (Negative); Urine Clarity Clear (Clear); Urine Urobilinogen 1 mg/dl (Normal)
[2021-12-07 00:24] LABS: Differential Comment SCANNED
[2021-12-07 00:32] LABS: Bacteria 1+ /hpf (None Seen); Squamous Epithelial Cells - UA 0-5 SEEN /hpf (0-5); White Blood Cells 0-5 SEEN /hpf (0-5)
[2021-12-07 00:58] VITALS: O2SAT 97
== END 2021-12-07 00:59 | disposition home or self-care (01) ==
PROVIDERS: Emergency Provider Emergency Medicine; PCP Family Medicine; Visit Provider Emergency Medicine
DX: U07.1 COVID-19 (principal); E11.9 Type 2 diabetes mellitus without complications; Z79.4 Long term (current) use of insulin; R53.1 Weakness; I10 Essential (primary) hypertension; Z79.01 Long term (current) use of anticoagulants; Z79.84 Long term (current) use of oral hypoglycemic drugs; Z79.899 Other long term (current) drug therapy
CPT/HCPCS: 71045; 80048; 81001; 84484; 85025; 85610; 87040; 87428; 93005; 96360; 99284; J7030; A4216

== ENCOUNTER 2021-12-27 22:37 | Inpatient (IN) | payer MEDICARE, OTHER, SELFPAY ==
[2021-12-27 22:20] LABS: Carboxyhemoglobin Frac (CO) 1.9 % (0.0-1.5)
[2021-12-27 22:36] VITALS: PULSE 77; BMI 32.8
[2021-12-27 22:41] VITALS: BP 151/81; PULSE 85; RESP 20; TEMP 36.6; O2SAT 100
--- NOTE | 2021-12-27 22:48 | HP.PCM.HOS_ITS ---
HPI - General General Date of Admission: 12/27/21 Date of Service: 12/27/21 Chief Complaint: Toxic/metabolic encephalopathy/dehydration HPI Narrative RICHARD ROY, is a 76 M who presented to the emergency department at [facility] after being found slumped over his tractor at home earlier this afternoon. The patient evidently was working outside for an unknown period of time. He reported he ate cookies and milk for lunch and did not drink any water during that time. The heat index during the time of day was greater than 100 degrees and he was working in pants and a short sleeve shirt. At the time of my evaluation he had no complaints and family was indicating that he was fairly close back to his baseline. He had COVID approximately 3 to 4 weeks ago and was seen in our emergency department on 12/06/2021 for fatigue related to this. Family states that his fatigue has been ongoing and was even present prior to that. They state that he also has had some memory issues that were problematic before his COVID-19 infection and his is concerned that he is having urinary incontinence however he denies this upon my questioning. They state his gait has been a little bit off as well. Vital signs upon presentation [facility] showed a temperature of 39.2 and a blood pressure of 149/70 6 repeat vitals done prior to transfer showed a temperature of 37, blood pressure of 131/76, heart rate of 82, respirate of 26, and patient was on room air. He now has no tachypnea and remains on room air. His CBC showed a leukocytosis with a white count of 15 hemoglobin of 14.4 and a platelet count of 305. His INR was 2.7 and he is on Coumadin at baseline for paroxysmal atrial fibrillation. His sodium was 139, chloride 104, bicarb 22, potassium 5.2, BUN 23, serum creatinine 1.88, and serum glucose was 205. His initial lactate was 4.6. No repeat lactate was obtained prior to transfer and 1 is pending at this time. His EKG shows sinus tachycardia with no signs of acute ischemia. His initial troponin was 11.1. It was reported to me by the emergency department physician he had infiltrate on his chest x-ray however no chest x-ray was sent and we are currently talking to the emergency department at [facility] to ascertain whether or not he had a chest x-ray and a CT of his head. At the outside hospital he was treated with 2 L IV fluids and was given empiric antibiotics as they were concerned about infection with his elevated white count and lactic acid. Family reports his mentation is markedly improved and close to what his baseline has been however not his normal prior to the last 6 months or so. [facility] Medical History (Updated 12/27/21 @ 23:[address] 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 Upper gastrointestinal bleed Ureterolithiasis Home Medications metoprolol succinate 200 mg tablet,extended release 24 hr 200 mg PO DAILY blood pressure 09/16/13 [History Last Taken 05/22/18] losartan 50 mg tablet 50 mg PO DAILY blood pressure 03/24/18 [History Last Taken 05/22/18] metformin 500 mg 24 hr tablet,extended release 1,000 mg PO BID diabetes 03/24/18 [History Last Taken 05/22/18] atorvastatin 40 mg tablet 40 mg PO QHS cholesterol 05/22/18 [History Last Taken 05/21/18] dulaglutide 1.5 mg/0.5 mL subcutaneous pen injector (Trulicity) 1.5 mg SQ QWEEK diabetes 05/22/18 [History Last Taken 05/18/18] insulin glargine 100 unit/mL (3 mL) subcutaneous pen (Lantus Solostar U-100 Insulin) 24 units subcut DAILY diabetes 05/22/18 [History Last Taken 05/22/18] insulin lispro 100 unit/mL subcutaneous pen (Humalog KwikPen (U-100) Insulin) See Protocol SQ 4X/DAY diabetes 05/22/18 [History Last Taken 05/22/18] warfarin 5 mg tablet (Jantoven) 7.5 mg PO MOTUTHFRSA anticoagulant 05/22/18 [History Last Taken 05/21/18] warfarin 10 mg tablet 10 mg PO SUWE 12/06/21 [History Last Taken Unknown] Allergy/AdvReac Type Severity Reaction Status Date / Time propofol AdvReac Other Verified 12/06/21 23:02 Family History (Updated 12/27/21 @ 23:[address] Amada Queen DO) Other Diabetes Hypertension Surgical History unable to obtain unable to obtain (Right great toe amputation) Social History (Updated 12/27/21 @ 23:[address] Amada Queen DO) household members: spouse housing: house current occupational status: retired Smoking Status: Never smoker alcohol intake: never substance use type: does not use ROS Constitutional Constitutional: Denies anorexia, change in weight, chills, fatigue, fever(s), malaise, night sweats, weakness or other Eyes Eyes: Denies blurry vision, change in eye color, change in vision, discharge from eye(s), double vision, erythema, eye pain, loss of vision or other ENT HEENT: Denies abnormal hearing, dysphagia, ear pain, epistaxis, headache(s), hearing loss, nasal congestion, nasal discharge, post nasal drip, sinus press ure, sore throat or other Cardiovascular Cardiovascular: Denies chest pain, claudication, dyspnea on exertion, edema, lightheadedness, orthopnea, palpitations, paroxysmal nocturnal dyspnea, rapid heart rate, syncope or other Respiratory/Chest Respiratory/Chest: Denies cough, dyspnea, excessive phlegm production, hemoptysis, productive cough, shortness of breath at rest, shortness of breath with exertion, wheezing or other Gastrointestinal Gastrointestinal: Denies abdominal pain, coffee ground emesis, constipation, diarrhea, dyspepsia, hematemesis, hematochezia, loose stools, melena, nausea, vomiting or other Genitourinary Genitourinary: Reports urinary frequency and urinary hesitancy; Denies burning urination, difficulty urinating, dysuria, hematuria, nocturia, urinary incontinence, urinary urgency or other Musculoskeletal Musculoskeletal: Denies arthralgias, back pain, joint pain, joint stiffness, joint swelling, myalgias, neck pain or other Neurologic Neurologic: Denies abnormal gait, abnormal speech, confusion, disequilibrium, dizziness, focal weakness, headache(s), numbness, paresthesias, seizure-like activity, seizures, syncope, tingling, tremor(s) or other Psychiatric Psychiatric: Denies anxiety, depression, homicidal ideation, suicidal ideation or other Endocrine Endocrinology: Denies change in body appearance, cold intolerance, excessive sweating, heat intolerance, polydipsia, polyuria or other Hematologic/Lymphatic Hematologic/Lymphatic: Denies anemia, easy bleeding, easy bruising, lymphadenopathy or other Allergic/Immunologic Allergic/Immunologic: Denies rhinitis, hives, eczemia, asthma or other Vital Signs Vital Signs Vital Signs: 12/27/21 22:41 Temperature 97.8 F Temperature Source Oral Pulse Rate 85 Respiratory Rate 20 H Blood Pressure 151/81 H Blood Pressure Mean 104 Blood Pressure Source Monitor Blood Pressure Position Supine Blood Pressure Location Left Arm Pulse Ox 100 Oxygen Delivery Method Room Air Weight Weight: 112.7 kg Body Mass Index (BMI) 32.8 Physical Exam Const alert Constitutional Narrative: Older white male sitting up in bed, family at bedside, nursing at bedside, appears comfortable nontoxic, patient was oriented to self, current location, year, and 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 president 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 however he was unable to tell me the month General Appearance: cooperative HEENT normocephalic, head/scalp atraumatic, hearing grossly normal bilaterally and moist oral mucous membranes HEENT Narrative: Dentition is poor, few missing teeth, significant plaque and caries, Mallampati is 2, no thrush Eyes PERRL, EOMs intact bilaterally and conjunctivae normal Eyes Narrative: No scleral icterus Neck no lymphadenopathy, supple, no JVD and no carotid bruits Neck Narrative: Trachea midline, no thyroid enlargement Resp normal respiratory effort, no retractions, no use of accessory muscles and clear to auscultation bilaterally Auscultation: Negative for crackles, rales, rhonchi or wheezes Cardio regular rate, regular rhythm, S1 normal heart sound, S2 normal heart sound, no murmurs, no rub, no gallops, no clicks and no JVD GI normal to inspection, nondistended, normoactive bowel sounds, soft to palpation, non-tender and non-distended; Negative for hepatosplenomegaly GI Narrative: Obese Extremity no clubbing, cyanosis or edema Neuro CN's II-XII intact bilaterally, moves all extremities and no focal motor deficits Sensorium / Orientation: awake, alert, oriented to person and oriented to place Speech: speech normal Motor Exam: strength 5/5 throughout Psych affect normal Psych Narrative: Very pleasant Results Lab / Micro Data Attestation: I reviewed the patient's lab results. Assessment & Plan Assessment/Plan (1) Lactic acidosis: (2) ANTHONY (acute kidney injury): (3) Hyperkalemia: (4) Heat exhaustion: (5) Leukocytosis: (6) Acute dehydration: PLAN: Plan Heat exhaustion -Resolving -Patient is now normothermic -Dehydration is improving -Continue to monitor ANTHONY on CKD stage II secondary to acute dehydration -Serum creatinine at [facility] was 1.88 -After 2 L of fluids serum creatinine is improved to 1.64 -Baseline appears to fluctuate however it looks like his normal baseline is 1.1- 1.3 -We will continue IV fluids with LR at 75 cc/h -Hold losartan/metformin -Repeat BMP in a.m. Leukocytosis -Suspect reactive/hemoconcentration -Doubt current infection -Chest x-ray is negative -Repeat CBC in a.m. Lactic acidosis -4.6 at outside hospital -Anticipate improvement with hydration -Suspect related to acute dehydration and ANTHONY and being on metformin -Repeat pending Hyperkalemia -Resolved Generalized weakness/memory loss -Family concerned about these issues having worse in the last 6 months -Patient is questioning whether or not he has some cognitive impairment -It was reported that a CT was done however documentation of this cannot be found in his transfer information -Family was also concerned that he was having some urinary incontinence however the patient denies -If no CT was done we will do 1 here to rule out normal pressure hydrocephalus -PT/OT consultation DM-2 -Continue Lantus 24 units daily -Sliding scale -Accu-Cheks before meals and at bedtime -Cardiac carb controlled diet -Hold home metformin and Trulicity Hypertension -Hold losartan -Continue metoprolol -As needed hydralazine for systolic blood pressure greater than 160 -If serum creatinine improved and morning could consider reinitiation of losartan Hyperlipidemia -Continue statin History of pulmonary embolism -Continue home anticoagulation -INR is therapeutic History of thoracic aortic aneurysm and aortic valve repair in 2006 -Currently stable History of diabetic neuropathy/OM right toe with amputation -Chronic stable DVT prophylaxis -Patient is fully anticoagulated with Coumadin and INR is therapeutic CODE STATUS -Full code as per discussion on admission Charges/Coding Visit Charges Inpatient E&M: 46426 Init Hosp L3
--- NOTE | 2021-12-27 22:50 | RAD_ITS ---
STUDY: X-RAY CHEST REASON FOR EXAM: Male, 76 years old. SOB TECHNIQUE: AP portable. 10:42 PM. COMPARISON: 12/06/2021. FINDINGS: LINES/DEVICES: None. LUNGS: No consolidation. No pneumothorax. MEDIASTINUM: Unremarkable. CARDIAC SILHOUETTE: Not enlarged. Sternal wires. BONES AND SOFT TISSUES: No acute abnormalities. RAD/Chest 1 View (Portable) IMPRESSION: No evidence of active intrathoracic disease. Electronically Signed: Geneva Rojo MD at 23:29 EDT ,
[2021-12-27 23:03] LABS: Hemoglobin 14.2 g/dL (13.0-16.5); Mean Corp Hgb Conc 32.3 g/dL (32-36); Mean Corpuscular Hgb 27.2 pg (27.0-32.0); Mean Corpuscular Volume 84.3 fL (80-94); Mean Platelet Vol. 9.2 fl (6.2-12.0); Platelet Count 209 K/mm3 (150-450); RBC Distribution Width SD 42.6 fl (35.1-43.9); Red Blood Count 5.22 M/mm3 (4.6-6.2); White Blood Count 17.1 K/mm3 (4.4-11.0)
[2021-12-27 23:20] LABS: AST(SGOT) 44 U/L (15-37); Alanine Aminotransfer ALT/SGPT 26 U/L (16-61); Albumin, Serum 3.2 g/dL (3.2-5.0); Alkaline Phosphatase 89 U/L (45-117); Anion Gap 8 (5-15); BUN 23 mg/dL (7-18); Calcium,Total 8.6 mg/dL (8.5-10.1); Chloride 107 mmol/L (98-107); Creatinine, Serum 1.64 mg/dL (0.70-1.30); EST Glomerular Filtration Rate 44 mL/min (>60); Est Glom Filt Rate - Afr Amer 53 mL/min (>60); Estimated Creatinine Clearance 44.66 ml/min; Globulin 3.1 g/dL (2.2-4.2); Glucose 146 mg/dL (74-106); Magnesium 1.4 mg/dL (1.6-2.6); Phosphorus 3.8 mg/dL (2.5-4.9); Potassium 4.8 mmol/L (3.5-5.1); Protein, Total 6.3 g/dL (6.4-8.2); Sodium Level 140 mmol/L (136-145)
[2021-12-27 23:25] LABS: Bedside Glucose 149 mg/dL (74-106)
[2021-12-27] MEDS: Lactated Ringers 1,000 ML 75 ML IV (23:34)
[2021-12-27 23:44] LABS: Troponin-I HS 22 pg/mL (3.0-78.0)
[2021-12-27 23:57] LABS: International Normalized Ratio 2.4; Prothrombin Time (Protime)PT. 25.5 SECONDS (11.7-14.9)
[2021-12-28] VITALS (10 sets, daily range): BP systolic 121–144; BP diastolic 55–82; PULSE 62–83; RESP 16–20; TEMP 36.4–37; O2SAT 93–96
[2021-12-28 00:47] LABS: Lactic Acid 2.8 mmol/L (0.4-1.9)
[2021-12-28 02:17] LABS: Troponin-I HS 22 pg/mL (3.0-78.0)
[2021-12-28 03:44] LABS: Reflex Lactate? Y
[2021-12-28 05:12] LABS: Absolute Lymphocyte Count 1.18 X10^3/uL (0.83-4.51); Absolute Neutrophil Count 12.7 X10^3/uL (2.0-7.7); Basophil# 0.03 X10^3/uL; Basophil% 0.2 % (0-1); Eosinophil# 0.04 X10^3/uL; Eosinophils% 0.3 % (0-5); Hematocrit 39.4 % (40-54); Hemoglobin 12.8 g/dL (13.0-16.5); Lymphocyte # 1.18 X10^3/ul (0.83-4.51); Lymphocyte % 7.8 % (19-41); Mean Corp Hgb Conc 32.5 g/dL (32-36); Mean Corpuscular Hgb 26.9 pg (27.0-32.0); Mean Corpuscular Volume 82.8 fL (80-94); Mean Platelet Vol. 9.1 fl (6.2-12.0); Monocyte# 1.15 X10^3/uL; Monocyte% 7.6 % (0-10); NRBC Flagged by Analyzer 0 % (0-5); Neutrophil # 12.71 X10^3/uL (2.7-7.7); Neutrophil % 83.6 % (47-70); Platelet Count 200 K/mm3 (150-450); RBC Distribution Width CV 14.1 % (11.6-14.6); RBC Distribution Width SD 42.3 fl (35.1-43.9); Red Blood Count 4.76 M/mm3 (4.6-6.2); White Blood Count 15.2 K/mm3 (4.4-11.0)
[2021-12-28 05:38] LABS: Anion Gap 6 (5-15); BUN 23 mg/dL (7-18); BUN/Creat Ratio 18.3 RATIO (10-20); Calcium,Total 8.3 mg/dL (8.5-10.1); Chloride 107 mmol/L (98-107); Creatinine, Serum 1.26 mg/dL (0.70-1.30); EST Glomerular Filtration Rate 59 mL/min (>60); Est Glom Filt Rate - Afr Amer 72 mL/min (>60); Estimated Creatinine Clearance 58.13 ml/min; Glucose 157 mg/dL (74-106); Magnesium 1.8 mg/dL (1.6-2.6); Potassium 4.2 mmol/L (3.5-5.1); Sodium Level 138 mmol/L (136-145); Troponin-I HS 23 pg/mL (3.0-78.0)
[2021-12-28 05:41] LABS: Lactic Acid 1.9 mmol/L (0.4-1.9)
[2021-12-28] MEDS: Insulin Lispro 100 UNIT/ML INSULN.PEN SC (06:23)
[2021-12-28 06:41] LABS: Bedside Glucose 155 mg/dL (74-106)
[2021-12-28] MEDS: Metoprolol(XL)Succ 200 MG Tablet PO (09:03)
[2021-12-28] MEDS: Insulin Glargine-YFGN 100 UNIT/ML Pen 24 UNIT SC (09:04)
--- NOTE | 2021-12-28 11:43 | DCINST_ITS ---
Discharge Instructions Diet Discharge Diet: 1800 Calorie Control Diet Activity Discharge Activity: Return to Normal Activity Weight Bearing Status: Full weight bearing Follow Up Care Test Results: Test results from this visit will be discussed in further detail at your follow- up appointment, if applicable. Discharge Plan Admission Admit Date/Time: 12/27/21 22:37 Primary Reason for Your Visit: heat exhaustion, dehydration Attending Provider: Gabriel Giraldo Primary Care Provider: Luis Caldera Consulting Providers: Amada Queen ; SREEDHAR LINARES Discharge Orders/Prescriptions Prescriptions: Continued metoprolol succinate 200 MG tablet 200 mg PO DAILY Label Comments: HYPERTENSION losartan 50 MG tablet 50 mg PO DAILY metformin 500 MG tablet,ER mirela.retention 24 hr 1,000 mg PO BID insulin lispro [Humalog KwikPen Insulin] 100 UNIT/ML insulin pen See Protocol SQ 4X/DAY Protocol: 6. Sliding Scale Insulin Custom Condition: mg/dl range Dose/Route: Number of Units Condition: 100-200 Dose/Route: 3 Condition: 201-250 Dose/Route: 5 Condition: 251-300 Dose/Route: 8 Condition: 301-350 Dose/Route: 12 Condition: 351-400 Dose/Route: 15 Protocol Text: Custom Sliding Scale Trulicity 1.5 MG/0.5 ML pen injector 1.5 mg SQ QWEEK Rx Instructions: Saturday atorvastatin 40 MG tablet 40 mg PO QHS warfarin [Jantoven] 5 MG tablet 7.5 mg PO MOTUTHFRSA Label Comments: blood thinner Rx Instructions: pt and spouse unsure of dose at this time. insulin glargine [Lantus Solostar U-100 Insulin] 100 UNITS/ML insulin pen 24 units subcut DAILY warfarin 10 MG tablet 10 mg PO DAILY Rx Instructions: pt and family unsure of dosing, will provided paperwork tomorrow. Referrals / Follow Up: Luis Caldera MD [Primary Care Provider] - See Referral Note (call to arrange appointment) Disposition Disposition (needs filled in before D/C Order can be placed): Home, Self Care
[2021-12-28 11:46] LABS: Bedside Glucose 141 mg/dL (74-106)
[2021-12-28] MEDS: Lactated Ringers 1,000 ML 75 ML IV (13:01)
--- NOTE | 2021-12-28 13:49 | CASEMGMT ---
Per therapy, pt not safe to go home d/t unsteady and confusion. Dr. Simons aware and pt d/c cancelled. Pt to get more fluids. Call to to complete [place] form and she states she is on way in. aware that pt will not be d/c'd today. Per , pt has had increased confusion at home for awhile. This RN CM inquires about whether pt's PCP has done any testing, etc and states pt always goes to appt's alone and states everything is always fine. Advised that she or one of sons should go to next appt with pt and let PCP know about confusion and see about further testing, voices understanding. CM to follow. SStjose guadalupe MARI CM
--- NOTE | 2021-12-28 15:43 | MRI_ITS ---
EXAM: MR HEAD WITHOUT INTRAVENOUS CONTRAST CLINICAL INDICATION: confusion TECHNIQUE: Multiplanar and multisequence MR images of the brain were obtained without intravenous contrast. This report was created using [employer] report generation technology. COMPARISON: ct 09.27.13 FINDINGS: BRAIN AND EXTRA-AXIAL SPACES: Chronic involutional changes of the brain. No intra- or extra-axial hemorrhage. No evidence of acute infarct. No intracranial mass or mass effect. There is preservation of the turner/white matter interface. Posterior fossa structures are unremarkable. Ventricles are appropriate for age. No hydrocephalus. Basal cisterns are patent. SELLA: Unremarkable. Normal sella turcica, pituitary gland, infundibular stalk, optic chiasm and hypothalamus. AUDITORY SYSTEM: Unremarkable. The internal auditory canals are patent. BONES/JOINTS: Unremarkable. No discrete lytic or blastic abnormalities. SINUSES: There is sinus disease. MASTOID AIR CELLS: Unremarkable as visualized. Clear. ORBITS: Unremarkable as visualized. Both globes, extraocular muscles, optic nerves and retrobulbar fat appear unremarkable. VASCULATURE: Unremarkable as visualized. Normal flow voids in the major intracranial circulation. MRI/Brain without Contrast IMPRESSION: Chronic involutional changes of the brain. Electronically Signed: Dev Lowe MD at 17:42 EDT ,
[2021-12-28 17:30] LABS: Bedside Glucose 114 mg/dL (74-106)
[2021-12-28] MEDS: Atorvastatin Calcium 40 MG Tablet PO (20:13)
--- NOTE | 2021-12-28 20:14 | PCM.PN.HOSP ---
Subjective Subjective Patient was seen and examined today, he exhibits some confusion on examination today, initially I had considered discharging him home, I had a long conversation with his who was in the room at the time my examination, patient was able to tell me the day of the week but could not tell me the month. Evidently has been having some memory issues over the last several months, patient evidently went out on Saturday afternoon during the hottest time of the day and tried to move an object with his tractor even though he did not go out on Saturday or Saturday of this week due to concerns about the heat. Patient's pays all the expenses for the family, patient still drives to his own office visits and drives his car. Patient's does not go to his office visits however with the patient. PT examined the patient today and felt that he was too unstable to go home at this time. I talked this over with the patient and his , I stated that he would be reevaluated tomorrow again for possible discharge home versus group home placement. Patient was made a full admission today. Objective Data Objective Data Vital Signs: Vital Signs Temp Pulse Resp BP Pulse Ox 97.8 F 66 20 H 144/74 H 96 12/28/21 20:11 12/28/21 20:11 12/28/21 20:11 12/28/21 20:11 12/28/21 20:11 Oxygen Delivery Method Room Air Weight: 112.7 kg Body Mass Index (BMI) 32.8 Intake & Output: Intake and Output for Last 24 Hours 12/26/21 12/27/21 12/28/21 23:59 23:59 23:59 Intake Total 1395.25 / 1395.25 Output Total 200 / 200 Balance 1195.25 / 1195.25 Lab / Micro Data Result Diagrams: 12/28/21 05:06 12/28/21 05:06 Labs: Laboratory Results - last 24 hr 12/27/21 22:54: POC Glucose 149 H 12/27/21 22:57: WBC 17.1 H, RBC 5.22, Hgb 14.2, Hct 44.0, MCV 84.3, MCH 27.2, MCHC 32.3, RDW Std Deviation 42.6, RDW Coeff of Nathaniel 14.0, Plt Count 209, MPV 9.2 12/27/21 22:57: Sodium 140, Potassium 4.8, Chloride 107, Carbon Dioxide 25.0, Anion Gap 8, BUN 23 H, Creatinine 1.64 H, Estim Creat Clear Calc 44.66, Est GFR (MDRD) Af Amer 53 L, Est GFR (MDRD) Non-Af 44 L, BUN/Creatinine Ratio 14.0, Glucose 146 H, Calcium 8.6, Phosphorus 3.8, Magnesium 1.4 L, Total Bilirubin 0.80, AST 44 H, ALT 26, Alkaline Phosphatase 89, Total Protein 6.3 L, Albumin 3.2, Globulin 3.1, Albumin/Globulin Ratio 1.0 12/27/21 22:57: Troponin I High Sens 12/27/21 23:35: PT 25.5 H, INR 2.4 12/27/21 23:35: Lactic Acid 2.8 H* 12/28/21 01:50: Troponin I High Sens 12/28/21 05:06: WBC 15.2 H, RBC 4.76, Hgb 12.8 L, Hct 39.4 L, MCV 82.8, MCH 26.9 L, MCHC 32.5, RDW Std Deviation 42.3, RDW Coeff of Nathaniel 14.1, Plt Count 200, MPV 9.1, Immature Gran % (Auto) 0.500, Neut % (Auto) 83.6 H, Lymph % (Auto) 7.8 L, Ralls % (Auto) 7.6, Eos % (Auto) 0.3, Baso % (Auto) 0.2, Absolute Neuts (auto) 12.7 H, Absolute Lymphs (auto) 1.18, Nucleated RBC % 0 12/28/21 05:06: Sodium 138, Potassium 4.2, Chloride 107, Carbon Dioxide 25.0, Anion Gap 6, BUN 23 H, Creatinine 1.26, Estim Creat Clear Calc 58.13, Est GFR (MDRD) Af Amer 72, Est GFR (MDRD) Non-Af 59 L, BUN/Creatinine Ratio 18.3, Glucose 157 H, Calcium 8.3 L, Magnesium 1.8, Troponin I High Sens 12/28/21 05:06: Lactic Acid 1.9 12/28/21 06:16: POC Glucose 155 H 12/28/21 11:15: POC Glucose 141 H 12/28/21 16:49: POC Glucose 114 H ABG Data ABG results: ABG 12/27/21 18:16 VBG Carboxyhemoglobin 1.9 H Radiography Diagnostic Testing: Radiology Impression Chest X-Ray 12/27/21 22:50 IMPRESSION: No evidence of active intrathoracic disease. Electronically Signed: Geneva Rojo MD at 23:29 EDT , Brain MRI 12/28/21 15:43 IMPRESSION: Chronic involutional changes of the brain. Electronically Signed: Dev Lowe MD at 17:42 EDT , Physical Exam Const alert and average body habitus Constitutional Narrative: Patient is alert to person and place, he exhibits some mild cognitive impairment, he cannot name the month HEENT head/scalp atraumatic Head and Scalp: normocephalic Mouth: oral and palatal mucosa normal Eyes PERRL, EOMs intact bilaterally and conjunctivae normal Neck supple and no JVD Resp normal respiratory effort, no retractions, no use of accessory muscles and clear to auscultation bilaterally Cardio regular rate, regular rhythm, S1 normal heart sound, S2 normal heart sound, no murmurs and no rub GI normal to inspection, nondistended, normoactive bowel sounds, soft to palpation and non-tender Extremity normal to inspection and no clubbing, cyanosis or edema Neuro CN's II-XII intact bilaterally, moves all extremities and no focal motor deficits Neuro Narrative: Patient is oriented as to person and place, he cannot name the month Sensorium / Orientation: alert, oriented to person and oriented to place Psych affect normal Assessment & Plan Assessment/Plan (1) Heat exhaustion: PLAN: Plan 1. Heat exhaustion-I will continue the patient's IV fluids at this time at 75 cc/h #2 type 2 diabetes-continue present insulin ministration monitor blood sugars #3 hyperlipidemia-patient is on atorvastatin #4 cognitive impairment-chronic in nature-I ordered an MRI of the brain on the patient this afternoon, it resulted showing no evidence of strokes, I feel the patient most likely has dementia, I will start Aricept 5 mg nightly tonight, knows that I will be starting this medication, I discussed results of his MRI with his today. #5 hypertension-patient will remain on his current medications #6 leukocytosis-etiology unclear at this time, improved #7 dehydration-again I will continue fluid administration, and this will need to be reevaluated tomorrow #8 chronic anticoagulation-secondary to past history of pulmonary embolism, patient is on warfarin #9 acute debility-patient will be seen tomorrow again by PT and OT, he may need temporary placement in the residential facility, I discussed this briefly with the patient's and the patient. Charges/Coding Visit Charges Inpatient E&M: 50036 Init Hosp L3
[2021-12-28] MEDS: Donepezil HCl 5 MG Tablet PO (23:40)
[2021-12-29 02:15] VITALS: BP 146/84; PULSE 73; RESP 20; TEMP 36.8; O2SAT 97
[2021-12-29] MEDS: Lactated Ringers 1,000 ML 75 ML IV (02:34)
[2021-12-29 05:00] LABS: Absolute Lymphocyte Count 1.56 X10^3/uL (0.83-4.51); Absolute Neutrophil Count 6.6 X10^3/uL (2.0-7.7); Basophil# 0.03 X10^3/uL; Basophil% 0.3 % (0-1); Eosinophils% 3.2 % (0-5); Hematocrit 38.2 % (40-54); Hemoglobin 12.4 g/dL (13.0-16.5); Lymphocyte # 1.56 X10^3/ul (0.83-4.51); Lymphocyte % 16.7 % (19-41); Mean Corp Hgb Conc 32.5 g/dL (32-36); Mean Corpuscular Hgb 26.9 pg (27.0-32.0); Mean Corpuscular Volume 82.9 fL (80-94); Mean Platelet Vol. 9.3 fl (6.2-12.0); Monocyte# 0.81 X10^3/uL; Monocyte% 8.7 % (0-10); NRBC Flagged by Analyzer 0 % (0-5); Neutrophil # 6.58 X10^3/uL (2.7-7.7); Neutrophil % 70.4 % (47-70); Platelet Count 177 K/mm3 (150-450); RBC Distribution Width CV 14.2 % (11.6-14.6); RBC Distribution Width SD 42.5 fl (35.1-43.9); Red Blood Count 4.61 M/mm3 (4.6-6.2); White Blood Count 9.4 K/mm3 (4.4-11.0)
[2021-12-29 05:26] LABS: Anion Gap 5 (5-15); BUN 17 mg/dL (7-18); BUN/Creat Ratio 16.5 RATIO (10-20); Calcium,Total 8.4 mg/dL (8.5-10.1); Chloride 108 mmol/L (98-107); Creatinine, Serum 1.03 mg/dL (0.70-1.30); EST Glomerular Filtration Rate 75 mL/min (>60); Est Glom Filt Rate - Afr Amer 91 mL/min (>60); Estimated Creatinine Clearance 71.11 ml/min; Glucose 109 mg/dL (74-106); Potassium 4.1 mmol/L (3.5-5.1); Sodium Level 140 mmol/L (136-145)
[2021-12-29 05:47] VITALS: BP 140/78; PULSE 60; RESP 20; TEMP 36.4; O2SAT 95
[2021-12-29 06:35] VITALS: PULSE 67
[2021-12-29 06:40] LABS: Bedside Glucose 129 mg/dL (74-106)
[2021-12-29 07:25] VITALS: O2SAT 97
--- NOTE | 2021-12-29 08:34 | PN.HOSP_ITS ---
Subjective Subjective Still confused, he knows where he is and who he is but he thinks is 1920. No issues overnight. Objective Data Objective Data Vital Signs: Vital Signs Temp Pulse Resp BP Pulse Ox 97.6 F L 67 20 H 140/78 H 97 12/29/21 05:47 12/29/21 06:35 12/29/21 05:47 12/29/21 05:47 12/29/21 07:25 Oxygen Delivery Method Room Air Weight: 248 lb 7.375 oz Body Mass Index (BMI) 32.8 Intake & Output: Intake and Output for Last 24 Hours 12/28/21 12/29/21 12/30/21 03:59 03:59 03:59 Intake Total 0 / 0 1993.00 / 1993. 0 / 0 Output Total 400 / 400 200 / 200 Balance 0 / 0 1594.00 / 1594.00 -200 / -200 Lab / Micro Data Result Diagrams: 12/29/21 04:37 12/29/21 04:37 Labs: Laboratory Results - last 24 hr 12/28/21 11:15: POC Glucose 141 H 12/28/21 16:49: POC Glucose 114 H 12/29/21 04:37: WBC 9.4, RBC 4.61, Hgb 12.4 L, Hct 38.2 L, MCV 82.9, MCH 26.9 L, MCHC 32.5, RDW Std Deviation 42.5, RDW Coeff of Nathaniel 14.2, Plt Count 177, MPV 9.3, Immature Gran % (Auto) 0.700, Neut % (Auto) 70.4 H, Lymph % (Auto) 16.7 L, [place] % (Auto) 8.7, Eos % (Auto) 3.2, Baso % (Auto) 0.3, Absolute Neuts (auto) 6.6, Absolute Lymphs (auto) 1.56, Nucleated RBC % 0 12/29/21 04:37: Sodium 140, Potassium 4.1, Chloride 108 H, Carbon Dioxide 27.0, Anion Gap 5, BUN 17, Creatinine 1.03, Estim Creat Clear Calc 71.11, Est GFR (MDRD) Af Amer 91, Est GFR (MDRD) Non-Af 75, BUN/Creatinine Ratio 16.5, Glucose 109 H, Calcium 8.4 L 12/29/21 06:32: POC Glucose 129 H ABG Data ABG results: ABG 12/27/21 18:16 VBG Carboxyhemoglobin 1.9 H Radiography Diagnostic Testing: Radiology Impression Brain MRI 12/28/21 15:43 IMPRESSION: Chronic involutional changes of the brain. Electronically Signed: Dev Lowe MD at 17:42 EDT Reading Location ID and State: [facility] / [place] , Service support , Physical Exam Const alert and no apparent distress General Appearance: cooperative Orientation / Consciousness: oriented to person and oriented to place; Negative for oriented to time HEENT normocephalic and moist oral mucous membranes Eyes PERRL, EOMs intact bilaterally and conjunctivae normal Neck supple and no JVD Resp normal respiratory effort, no retractions, no use of accessory muscles and clear to auscultation bilaterally Auscultation: Negative for crackles, rales, rhonchi or wheezes Cardio regular rate, regular rhythm, S1 normal heart sound, S2 normal heart sound and no murmurs GI soft to palpation, non-tender and non-distended; Negative for hepatosplenomegaly Extremity no clubbing, cyanosis or edema Skin no rashes or lesions noted Neuro no focal motor deficits and no sensory deficits noted Psych affect normal Appearance: appropriate Assessment & Plan Assessment/Plan (1) Heat exhaustion: PLAN: Plan 1. Heat exhaustion with dehydration/debility with cognitive impairment possibly dementia ? We will discontinue his IV fluids as he does appear to be taking p.o. pretty well ? Given his confusion this does appear to be baseline will have him evaluate by PT/OT and he will likely need placement ? Continue with his Aricept 2. HTN/HLD ? Blood pressure does appear to be stable at this time continue with his home medications ? Continue with his Lipitor 3. DM2 ? Hold metformin ?continue with long-acting insulin as well as take scale insulin ? Accu-Cheks AC at bedtime, will make adjustments as necessary DVT: Coumadin secondary to a previous PE Charges/Coding Visit Charges Inpatient E&M: 07080 Subs Hosp L2
[2021-12-29 08:50] VITALS: BP 139/68; PULSE 69; RESP 18; TEMP 36.5; O2SAT 96
[2021-12-29 08:54] VITALS: PULSE 69
[2021-12-29] MEDS: Metoprolol(XL)Succ 200 MG Tablet PO (08:54)
[2021-12-29] MEDS: Insulin Glargine-YFGN 100 UNIT/ML Pen 24 UNIT SC (08:55)
[2021-12-29 11:20] LABS: Bedside Glucose 126 mg/dL (74-106)
--- NOTE | 2021-12-29 13:07 | DCINST_ITS ---
Discharge Instructions Diet Discharge Diet: 1800 Calorie Control Diet and Carb Control Diet Activity Weight Bearing Status: Full weight bearing Dressing / Incision Call your doctor if you observe: Fever of 101 or Higher, Shortness of breath, Dizziness, Fainting spells, Swelling in the ankles, Chest pain and Increased palpitations (irregular heartbeat) Follow Up Care Test Results: Test results from this visit will be discussed in further detail at your follow- up appointment, if applicable. Discharge Plan Admission Admit Date/Time: 12/28/21 14:50 Primary Reason for Your Visit: heat exhaustion, dehydration Attending Provider: Hugo Cervantes Primary Care Provider: Luis Caldera Consulting Providers: Amada Queen ; SREEDHAR LINARES ; Gabriel Giraldo Discharge Orders/Prescriptions Prescriptions: Continued metoprolol succinate 200 MG tablet 200 mg PO DAILY Label Comments: HYPERTENSION losartan 50 MG tablet 50 mg PO DAILY metformin 500 MG tablet,ER mirela.retention 24 hr 1,000 mg PO BID insulin lispro [Humalog KwikPen Insulin] 100 UNIT/ML insulin pen See Protocol SQ 4X/DAY Protocol: 6. Sliding Scale Insulin Custom Condition: mg/dl range Dose/Route: Number of Units Condition: 100-200 Dose/Route: 3 Condition: 201-250 Dose/Route: 5 Condition: 251-300 Dose/Route: 8 Condition: 301-350 Dose/Route: 12 Condition: 351-400 Dose/Route: 15 Protocol Text: Custom Sliding Scale Trulicity 1.5 MG/0.5 ML pen injector 1.5 mg SQ QWEEK Rx Instructions: Saturday atorvastatin 40 MG tablet 40 mg PO QHS warfarin [Jantoven] 5 MG tablet 7.5 mg PO MOTUTHFRSA Label Comments: blood thinner insulin glargine [Lantus Solostar U-100 Insulin] 100 UNITS/ML insulin pen 24 units subcut DAILY warfarin 10 MG tablet 10 mg PO SUWE Rx Instructions: pt and family unsure of dosing, will provided paperwork tomorrow. Referrals / Follow Up: Luis Caldera MD [Primary Care Provider] - Within 1 Week Disposition Disposition (needs filled in before D/C Order can be placed): Home, Self Care
--- NOTE | 2021-12-29 13:12 | DS.PCM_ITS ---
Providers Date of Admission: 12/28/21 Primary Care Physician: Dr. Luis Caldera MD Reason For Visit: dehydration/ heat exhaustion Diagnosis Discharge Diagnosis (1) Heat exhaustion: Status: Acute Code(s): T67.5XXA - Heat exhaustion, unspecified, initial encounter Medications at Discharge Home Medications metoprolol succinate 200 mg tablet,extended release 24 hr 200 mg PO DAILY blood pressure 09/16/13 losartan 50 mg tablet 50 mg PO DAILY blood pressure 03/24/18 metformin 500 mg 24 hr tablet,extended release 1,000 mg PO BID diabetes 03/24/18 atorvastatin 40 mg tablet 40 mg PO QHS cholesterol 05/22/18 dulaglutide 1.5 mg/0.5 mL subcutaneous pen injector (Trulicity) 1.5 mg SQ QWEEK diabetes 05/22/18 insulin glargine 100 unit/mL (3 mL) subcutaneous pen (Lantus Solostar U-100 Insulin) 24 units subcut DAILY diabetes 05/22/18 insulin lispro 100 unit/mL subcutaneous pen (Humalog KwikPen (U-100) Insulin) See Protocol SQ 4X/DAY diabetes 05/22/18 warfarin 5 mg tablet (Jantoven) 7.5 mg PO MOTUTHFRSA anticoagulant 05/22/18 warfarin 10 mg tablet 10 mg PO SUWE Check with primary doctor 12/06/21 Hospital Course Operations None Procedures None Summary of Care Provided Minutes Spent on Discharge: 40 Hospital Course: Per HPI: RICHARD ROY, is a 76 M who presented to the emergency department at [facility] after being found slumped over his tractor at home earlier this afternoon.? The patient evidently was working outside for an unknown period of time.? He reported he ate cookies and milk for lunch and did not drink any water during that time.? The heat index during the time of day was greater than 100 degrees and he was working in pants and a short sleeve shirt.? At the time of my evaluation he had no complaints and family was indicating that he was fairly close back to his baseline.? He had COVID approximately 3 to 4 weeks ago and was seen in our emergency department on 12/06/2021 for fatigue related to this.? Family states that his fatigue has been ongoing and was even present prior to th at.? They state that he also has had some memory issues that were problematic before his COVID-19 infection and his is concerned that he is having urinary incontinence however he denies this upon my questioning.? They state his gait has been a little bit off as well. Vital signs upon presentation Abbey Brenner showed a temperature of 39.2 and a blood pressure of 149/70 6 repeat vitals done prior to transfer showed a temperature of 37, blood pressure of 131/76, heart rate of 82, respirate of 26, and patient was on room air.? He now has no tachypnea and remains on room air.? His CBC showed a leukocytosis with a white count of 15 hemoglobin of 14.4 and a platelet count of 305.? His INR was 2.7 and he is on Coumadin at baseline for paroxysmal atrial fibrillation.? His sodium was 139, chloride 104, bicarb 22, potassium 5.2, BUN 23, serum creatinine 1.88, and serum glucose was 205.? His initial lactate was 4.6.? No repeat lactate was obtained prior to transfer and 1 is pending at this time.? His EKG shows sinus tachycardia with no signs of acute ischemia.? His initial troponin was 11.1.? It was reported to me by the emergency department physician he had infiltrate on his chest x-ray however no chest x-ray was sent and we are currently talking to the emergency department at [place] to ascertain whether or not he had a chest x-ray and a CT of his head. At the outside hospital he was treated with 2 L IV fluids and was given empiric antibiotics as they were concerned about infection with his elevated white count and lactic acid.? Family reports his mentation is markedly improved and close to what his baseline has been however not his normal prior to the last 6 months or so. Hospital Course: 1. Heat exhaustion with dehydration and weakness?76-year-old male was working outside on Saturday and got dehydrated. According to his , they have been talking about downsizing and so they have been going through their house to see what they can get rid of. He was started on aggressive IV fluids and has been doing well since then. PT/OT evaluated him today and he does not need further therapy. I discussed possibly discharging today with both him and his and they both expressed understanding of the risk benefits going home and they would like to go home today. I did bring up the possible early signs of dementia that had been noticed by my partner as well as myself and recommend outpatient follow-up with his PCP for further investigation. 2. Hypertension, hyperlipidemia, type 2 diabetes are all chronic medical conditions which complicate his care. His home medications were continued where appropriate. Weight / BMI Weight Weight: 248 lb 7.375 oz Body Mass Index (BMI) 32.8 ABG / Lab / Microbiology Data Result Diagrams: 12/29/21 04:37 12/29/21 04:37 Laboratory: Laboratory Results - last 24 hr 12/28/21 16:49: POC Glucose 114 H 12/29/21 04:37: WBC 9.4, RBC 4.61, Hgb 12.4 L, Hct 38.2 L, MCV 82.9, MCH 26.9 L, MCHC 32.5, RDW Std Deviation 42.5, RDW Coeff of Nathaniel 14.2, Plt Count 177, MPV 9.3, Immature Gran % (Auto) 0.700, Neut % (Auto) 70.4 H, Lymph % (Auto) 16.7 L, [place] % (Auto) 8.7, Eos % (Auto) 3.2, Baso % (Auto) 0.3, Absolute Neuts (auto) 6.6, Absolute Lymphs (auto) 1.56, Nucleated RBC % 0 12/29/21 04:37: Sodium 140, Potassium 4.1, Chloride 108 H, Carbon Dioxide 27.0, Anion Gap 5, BUN 17, Creatinine 1.03, Estim Creat Clear Calc 71.11, Est GFR (MDRD) Af Amer 91, Est GFR (MDRD) Non-Af 75, BUN/Creatinine Ratio 16.5, Glucose 109 H, Calcium 8.4 L 12/29/21 06:32: POC Glucose 129 H Radiography Diagnostic Testing: Radiology Impression Brain MRI 12/28/21 15:43 IMPRESSION: Chronic involutional changes of the brain. Electronically Signed: Dev Lowe MD at 17:42 EDT , D/C Instructions Discharge Diet: 1800 Calorie Control Diet and Carb Control Diet Weight Bearing Status: Full weight bearing Call your doctor if you observe: Fever of 101 or Higher, Shortness of breath, Dizziness, Fainting spells, Swelling in the ankles, Chest pain and Increased palpitations (irregular heartbeat) Meaningful Use Info Meaningful Use Diagnoses (Choose all that apply): None applicable Discharge Plan Admission Admit Date/Time: 12/28/21 14:50 Primary Reason for Your Visit: heat exhaustion, dehydration Attending Provider: Hugo Cervantes Primary Care Provider: Luis Caldera Consulting Providers: Amada Queen ; SREEDHAR LINARES ; Gabriel Giraldo Discharge Orders/Prescriptions Prescriptions: Continued metoprolol succinate 200 MG tablet 200 mg PO DAILY Label Comments: HYPERTENSION losartan 50 MG tablet 50 mg PO DAILY metformin 500 MG tablet,ER mirela.retention 24 hr 1,000 mg PO BID insulin lispro [Humalog KwikPen Insulin] 100 UNIT/ML insulin pen See Protocol SQ 4X/DAY Protocol: 6. Sliding Scale Insulin Custom Condition: mg/dl range Dose/Route: Number of Units Condition: 100-200 Dose/Route: 3 Condition: 201-250 Dose/Route: 5 Condition: 251-300 Dose/Route: 8 Condition: 301-350 Dose/Route: 12 Condition: 351-400 Dose/Route: 15 Protocol Text: Custom Sliding Scale Trulicity 1.5 MG/0.5 ML pen injector 1.5 mg SQ QWEEK Rx Instructions: Saturday atorvastatin 40 MG tablet 40 mg PO QHS warfarin [Jantoven] 5 MG tablet 7.5 mg PO MOTUTHFRSA Label Comments: blood thinner insulin glargine [Lantus Solostar U-100 Insulin] 100 UNITS/ML insulin pen 24 units subcut DAILY warfarin 10 MG tablet 10 mg PO SUWE Rx Instructions: pt and family unsure of dosing, will provided paperwork tomorrow. Referrals / Follow Up: Luis Caldera MD [Primary Care Provider] - Within 1 Week Disposition Disposition (needs filled in before D/C Order can be placed): Home, Self Care Charges/Coding Visit Charges Inpatient E&M: 66015 Disch Hosp
--- NOTE | 2021-12-29 14:15 | CASEMGMT ---
JACEY MASON assessment: Face to Face with patient for initial transition planning/care coordination assessment. JACEY MASON introduced self and role at [facility], pt voices understanding and consents to assessment. Pt is sitting up in chair in no distress on room air. Pt is A/Ox4 at this time and answers questions appropriately..? Care providers, pharmacy,?and demographics verified. ? Presentation: Pt direct admit from [facility] ED for dehydration/confusion Admitting dx: Dehydration, heat exhaustion PCP: Verenice Specialists: None Preferred Pharmacy: [facility] Insurance: MCR A/B, [place] Prescription Benefit:?Yes Living Will/HPOA: Pt has LW/HPOA and is aware that they are on file at [facility]. Pt's , Lorena Szymanski, is HPOA. LNOK: Lorena Szymanski, /HPOA Living Arrangements: Pt lives with in 2 story home and states no concerns at home. Pt is independent with ADL's. Per therapy, pt should use cane or WW at all times and pt is aware. made aware by Melany MARI. Transportation: Pt/ drives and states no transportation concerns. DME/HHC: Pt has the following DME: canes, access to WW, and grab bars in shower. Pt declines need for any further DME. Pt states no hx of HHC but has been to SNF in past but can't remember name. Pt states no concerns with going home at time of discharge. Pt is retired. Pt states does not smoke cigarettes or drink ETOH. Pt voices no further concerns/needs. CM to follow for any further discharge planning/needs. Advised pt to ask for CM if any further questions/concerns/needs arise, voices understanding. Pt Goal: Home ? Plan: [place] JACEY MASON
== END 2021-12-29 15:16 | disposition home or self-care (01) | DRG 923 ==
PROVIDERS: Internal Medicine; Admitting Provider Internal Medicine; PCP Family Medicine; Visit Provider Family Medicine
DX: T67.5XXA Heat exhaustion, unspecified, initial encounter (principal); E87.2 Acidosis; N17.9 Acute kidney failure, unspecified; E11.22 Type 2 diabetes mellitus with diabetic chronic kidney disease; E11.40 Type 2 diabetes mellitus with diabetic neuropathy, unspecified; I48.0 Paroxysmal atrial fibrillation; E86.0 Dehydration; E78.5 Hyperlipidemia, unspecified; F03.90 Unspecified dementia, unspecified severity, without behavioral disturbance, psychotic disturbance, mood disturbance, and anxiety; Z79.4 Long term (current) use of insulin; E87.5 Hyperkalemia; I12.9 Hypertensive chronic kidney disease with stage 1 through stage 4 chronic kidney disease, or unspecified chronic kidney disease; N18.2 Chronic kidney disease, stage 2 (mild); Z79.01 Long term (current) use of anticoagulants; Z86.16 Personal history of COVID-19; Z79.899 Other long term (current) drug therapy; Z86.711 Personal history of pulmonary embolism; X30.XXXA Exposure to excessive natural heat, initial encounter
CPT/HCPCS: 36415; 70551; 71045; 80048; 80053; 82375; 82962; 83605; 83735; 84100; 84484; 85025; 85027; 85610; 97162; 97530; 99251; J7120; G0463

== ENCOUNTER 2022-03-02 14:21 | Emergency (ER) | payer MEDICARE, OTHER, SELFPAY ==
[2022-03-02 14:22] VITALS: BP 112/65; PULSE 96; RESP 16; TEMP 37.2; O2SAT 97; BMI 32.3
[2022-03-02 15:29] LABS: Absolute Lymphocyte Count 1.26 X10^3/uL (0.83-4.51); Absolute Neutrophil Count 8.8 X10^3/uL (2.0-7.7); Basophil# 0.05 X10^3/uL; Basophil% 0.4 % (0-1); Eosinophil# 0.28 X10^3/uL; Eosinophils% 2.5 % (0-5); Hematocrit 42.4 % (40-54); Hemoglobin 13.8 g/dL (13.0-16.5); Lymphocyte # 1.26 X10^3/ul (0.83-4.51); Lymphocyte % 11.2 % (19-41); Mean Corp Hgb Conc 32.5 g/dL (32-36); Mean Corpuscular Hgb 26.8 pg (27.0-32.0); Mean Corpuscular Volume 82.3 fL (80-94); Monocyte# 0.64 X10^3/uL; Monocyte% 5.7 % (0-10); NRBC Flagged by Analyzer 0 % (0-5); Neutrophil # 8.82 X10^3/uL (2.7-7.7); Neutrophil % 78.8 % (47-70); Platelet Count 269 K/mm3 (150-450); RBC Distribution Width SD 41.4 fl (35.1-43.9); Red Blood Count 5.15 M/mm3 (4.6-6.2); White Blood Count 11.2 K/mm3 (4.4-11.0)
--- NOTE | 2022-03-02 15:30 | RAD_ITS ---
STUDY: X-RAY CHEST REASON FOR EXAM: Male, 76 years old. weakness TECHNIQUE: 1 view COMPARISON: 09/17/2013 FINDINGS: Cardiomediastinal silhouette is unremarkable. Costophrenic angles are sharp. Lungs are clear. The trachea is midline. There is no pneumothorax. Sternotomy wires are grossly intact. RAD/Chest 1 View (Portable) IMPRESSION: No acute cardiopulmonary process. Electronically Signed: Azam Winn MD at 17:29 EDT ,
--- NOTE | 2022-03-02 15:33 | EX.ED.DYSGE1 ---
HPI History of Present Illness Chief Complaint: Weakness Informant: patient and spouse/S.O. Narrative Narrative: Patient is a 76-year-old male with history of diabetes mellitus, long-term Coumadin due to pulmonary emboli, hyperlipidemia, diabetic neuropathy and generalized weakness currently in physical therapy presenting with increased weakness. Patient was leaving physical therapy around 145 when his granddaughter noticed that he seemed more weak and almost seemed to be falling backwards. Patient's and granddaughter helped him to the car and then patient fell to his knees while trying to get into the car because he was so weak. Patient had a routine blood draw at 11 AM and went through physical therapy at 1 with no acute symptoms. No speech changes reported. No head injury. Patient has no complaints at this time. 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 Upper gastrointestinal bleed Ureterolithiasis Home Medications metoprolol succinate 200 mg tablet,extended release 24 hr 200 mg PO DAILY blood pressure 09/16/13 [History Last Taken 03/02/22] losartan 50 mg tablet 50 mg PO DAILY blood pressure 03/24/18 [History Last Taken 03/02/22] metformin 500 mg 24 hr tablet,extended release 1,000 mg PO BID diabetes 03/24/18 [History Last Taken 03/02/22] atorvastatin 40 mg tablet 40 mg PO QHS cholesterol 05/22/18 [History Last Taken 03/01/22] dulaglutide 1.5 mg/0.5 mL subcutaneous pen injector (Trulicity) 1.5 mg SQ GARCIA diabetes 05/22/18 [History Last Taken 02/25/22] insulin glargine 100 unit/mL (3 mL) subcutaneous pen (Lantus Solostar U-100 Insulin) 24 units subcut DAILY diabetes 05/22/18 [History Last Taken 03/01/22] insulin lispro 100 unit/mL subcutaneous pen (Humalog KwikPen (U-100) Insulin) See Protocol SQ 4X/DAY diabetes 05/22/18 [History Last Taken 03/02/22] warfarin 5 mg tablet (Jantoven) 7.5 mg PO MOTUTHFRSA anticoagulant 05/22/18 [History Last Taken 03/01/22] ergocalciferol (vitamin D2) 1,250 mcg (50,000 unit) capsule 1,250 mcg PO GARCIA SUPPLEMENT 03/02/22 [History Last Taken 02/25/22] tamsulosin 0.4 mg capsule 0.4 mg PO QHS PROSTATE 03/02/22 [History Last Taken 03/01/22] warfarin 5 mg tablet 10 mg PO SUWE 03/02/22 [History Last Taken 02/28/22] Allergy/AdvReac Type Severity Reaction Status Date / Time propofol AdvReac Other Verified 03/02/22 14:37 Family History Other Diabetes Hypertension Social History household members: spouse housing: house current occupational status: retired Smoking Status: Never smoker alcohol intake: never substance use type: does not use ROS ROS ED Constitutional Constitutional ED: Denies chills or fever(s) Eyes Eyes: Denies change in vision ENT ENT ED: Denies rhinorrhea or sore throat Cardiovascular Cardiovascular: Denies chest pain or palpitations Respiratory/Chest Respiratory/Chest: Denies cough or dyspnea Gastrointestinal Gastrointestinal: Denies abdominal pain, nausea or vomiting Genitourinary Genitourinary ED: Denies dysuria or urinary frequency Musculoskeletal Musculoskeletal: Denies arthralgias or myalgias Integumentary Denies rash Neurologic Neurologic: Reports weakness; Denies headache(s) or paresthesias Psychiatric Psychiatric: Denies anxiety Hematologic/Lymphatic Hematologic/Lymphatic: Reports easy bleeding and easy bruising EXAM Physical Exam Const Vital Signs: 03/02/22 14:22 03/02/22 14:34 03/02/22 16:22 Temperature 98.9 F Temperature Source Temporal Pulse Rate 96 89 Respiratory Rate 16 Respiratory Effort Normal Respiratory Pattern Normal Blood Pressure 112/65 142/80 H Blood Pressure Mean 80 100 Pulse Ox 97 95 Oxygen Delivery Method Room Air Room Air 03/02/22 18:12 Temperature Temperature Source Pulse Rate 82 Respiratory Rate 17 Respiratory Effort Respiratory Pattern Blood Pressure 152/89 H Blood Pressure Mean 110 Pulse Ox 97 Oxygen Delivery Method Room Air Positive well nourished and well developed General Appearance ED: well developed and NAD HEENT Reports moist mucous membranes HEENT Narrative: Slight asymmetry of the face on the right side which appears chronic when compared to the patient's photo in the computer system and per . No facial droop appreciated. Negative for trauma or tenderness Eyes PERRL and EOMs intact bilaterally Neck supple and no JVD Chest Wall inspection of chest normal and palpation of chest normal Resp normal respiratory effort and clear to auscultation bilaterally Cardio regular rate, regular rhythm and no murmurs GI normal to inspection, nondistended, normoactive bowel sounds, non-tender and non-distended Back/Spine no CVA tenderness Extremity normal to inspection Neuro oriented x3, CN's II-XII intact bilaterally and no sensory deficits noted Neuro Narrative: No truncal ataxia. Normal [id number]. NIH is 0 Motor Exam: strength 5/5 throughout and general weakness Psych mental status grossly normal Skin no rashes or lesions noted and no wounds MDM MDM MDM Narrative Medical decision making narrative: Patient is evaluated for an episode of weakness. Patient does have chronic weakness is on physical therapy for this. He has a normal neurologic exam with NIH of 0. No signs of ataxia or truncal ataxia. I do not think this is an acute stroke. Metabolic work-up shows a minor leukocytosis of 11.2 which is very nonspecific. His hemoglobin is normal but he does have a supratherapeutic INR 4.4. Creatinine is mildly bumped at 1.48. Patient seems to be closer to 1.2. His urine is dark in the emergency room with 5 ketones but not consistent with infection. Patient is given 500 cc fluid bolus. I question if he could have a component of dehydration contributing to his episode of weakness today. CT of the brain as well as chest x-ray interpreted by myself as well as radiology do not show any acute process. Patient is ambulated in the emergency room and is back to his baseline. Discussed observation versus outpatient follow-up. Patient would like to go home and feels comfortable with this. Patient will be discharged home with instructions to increase his fluid intake. Is counseled to decrease his Coumadin dose today and tomorrow from 1-1/2 pills to 1 pill a day. He will follow-up next week with his primary care doctor for his INR. Patient not have any anemia or signs of bleeding. He is given return precautions. Patient and verbalized agreement understand this plan. Patient discharged home in stable condition. Lab Data Attestation: I reviewed the patient's lab results. Labs: Laboratory Results - last 24 hr 03/02/22 03/02/22 03/02/22 15:14 15:20 15:20 WBC 11.2 H RBC 5.15 Hgb 13.8 Hct 42.4 MCV 82.3 MCH 26.8 L MCHC 32.5 RDW Std Deviation 41.4 RDW Coeff of Nathaniel 14.0 Plt Count 269 MPV 9.0 Immature Gran % (Auto) 1.400 H Neut % (Auto) 78.8 H Lymph % (Auto) 11.2 L [place] % (Auto) 5.7 Eos % (Auto) 2.5 Baso % (Auto) 0.4 Absolute Neuts (auto) 8.8 H Absolute Lymphs (auto) 1.26 Nucleated RBC % 0 PT 41.4 H INR 4.4 H* Sodium Potassium Chloride Carbon Dioxide Anion Gap BUN Creatinine Estim Creat Clear Calc Est GFR (MDRD) Af Amer Est GFR (MDRD) Non-Af BUN/Creatinine Ratio Glucose Calcium Troponin I High Sens Urine Color Urine Clarity Urine pH Ur Specific [place] Urine Protein Urine Glucose (UA) Urine Ketones Urine Occult Blood Urine Nitrite Urine Bilirubin Urine Urobilinogen Ur Leukocyte Esterase Urine RBC Urine WBC Ur Squamous Epith Cells Urine Bacteria Hyaline Casts Urine Mucus POC Glucose 158 H 03/02/22 03/02/22 15:20 16:00 WBC RBC Hgb Hct MCV MCH MCHC RDW Std Deviation RDW Coeff of Nathaniel Plt Count MPV Immature Gran % (Auto) Neut % (Auto) Lymph % (Auto) [place] % (Auto) Eos % (Auto) Baso % (Auto) Absolute Neuts (auto) Absolute Lymphs (auto) Nucleated RBC % PT INR Sodium 138 Potassium 4.2 Chloride 105 Carbon Dioxide 23.0 Anion Gap 10 BUN 25 H Creatinine 1.48 H Estim Creat Clear Calc 49.49 Est GFR (MDRD) Af Amer 60 Est GFR (MDRD) Non-Af 49 L BUN/Creatinine Ratio 16.9 Glucose 158 H Calcium 9.4 Troponin I High Sens 11 Urine Color Yellow Urine Clarity Clear Urine pH 5.0 Ur Specific [place] 1.025 Urine Protein 30 H Urine Glucose (UA) 50 H Urine Ketones 5 H Urine Occult Blood 10 H Urine Nitrite Negative Urine Bilirubin Negative Urine Urobilinogen Normal Ur Leukocyte Esterase Negative Urine RBC 0-5 SEEN Urine WBC 0 SEEN Ur Squamous Epith Cells 0-5 SEEN Urine Bacteria 2+ Hyaline Casts 0-5 SEEN Urine Mucus 3+ POC Glucose Radiography Chest X-Ray - ED: 1 View, Read by ED Physician, Read by Radiologist and No Acute Disease Diagnostic Testing: Clinical Impression(s) from Imaging Studies Chest X-Ray 03/02/22 15:30 IMPRESSION: No acute cardiopulmonary process. Electronically Signed: Azam Winn MD at 17:29 EDT Reading Location ID and State: [facility] / [place] Tel , Service support , Brain CT 03/02/22 15:35 IMPRESSION: No acute intracranial finding. MRI may be obtained if clinically indicated. Electronically Signed: Azam Winn MD at 17:24 EDT , Rhythm Strip Rhythm Strip: Sinus Rhythm Rate: 86 Ectopy: None EKG Initial EKG: Attestation: I personally reviewed and interpreted this EKG as follows: Interpretation: Sinus Rhythm Comments: Normal sinus rhythm at a rate of 86 Left axis deviation Right bundle 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 QRS [address] segments No change prior to prior EKG on 12/06/2021 Prior: Unchanged Discharge Plan Triage Chief Complaint: Weakness ED Provider: Lavern Galicia Dx/Rx/DC Orders Clinical Impression: Weakness, Unsteady gait, Dehydration, Supratherapeutic INR Instructions: ED Dehydration (Adult), ED Weakness (Uncertain Cause), ED Fall Prevention Prescriptions: No Action metoprolol succinate 200 MG tablet 200 mg PO DAILY Label Comments: HYPERTENSION losartan 50 MG tablet 50 mg PO DAILY metformin 500 MG tablet,ER mirela.retention 24 hr 1,000 mg PO BID insulin lispro [Humalog KwikPen Insulin] 100 UNIT/ML insulin pen See Protocol SQ 4X/DAY Protocol: 6. Sliding Scale Insulin Custom Condition: mg/dl range Dose/Route: Number of Units Condition: 100-200 Dose/Route: 3 Condition: 201-250 Dose/Route: 5 Condition: 251-300 Dose/Route: 8 Condition: 301-350 Dose/Route: 12 Condition: 351-400 Dose/Route: 15 Protocol Text: Custom Sliding Scale Trulicity 1.5 MG/0.5 ML pen injector 1.5 mg SQ GARCIA Rx Instructions: Saturday atorvastatin 40 MG tablet 40 mg PO QHS warfarin [Jantoven] 5 MG tablet 7.5 mg PO MOTUTHFRSA Label Comments: blood thinner insulin glargine [Lantus Solostar U-100 Insulin] 100 UNITS/ML insulin pen 24 units subcut DAILY tamsulosin 0.4 mg capsule 0.4 mg PO QHS Label Comments: TAKE 1 CAPSULE BY MOUTH EVERYDAY AT BEDTIME warfarin 5 mg tablet 10 mg PO SUWE Label Comments: 10 MG SATURDAY AND SATURDAY, 7.5 MG ALL OTHER DAYS. PATIENT HAS INR DRAWN BI-WEEKLY. ergocalciferol (vitamin D2) 1,250 mcg (50,000 unit) capsule 1,250 mcg PO GARCIA Label Comments: TAKE 1 CAPSULE BY MOUTH ONE TIME A WEEK. Primary Care Provider: Luis Caldera Referrals: Luis Caldera MD [Primary Care Provider] - Activity Restrictions/Additional Instructions: Your INR was 4.4 today. Take 1 tablet (5 mg) today and tomorrow and then resume your normal dosing. Follow-up with your doctor for further management of your Coumadin level. Call him tomorrow to let him know which her INR was today. Disposition Disposition: Home, Self Care
--- NOTE | 2022-03-02 15:35 | CT_ITS ---
STUDY: CT BRAIN WITHOUT CONTRAST REASON FOR EXAM: Male, 76 years old. confusion, generalized weakness RADIATION DOSAGE (If Supplied By Facility): CTDIvol = ( 44.99 ) mGy, DLP = ( 846.73 ) mGycm TECHNIQUE: Transaxial CT imaging of the brain was performed without administration of intravenous contrast material. Individualized dose optimization techniques were used for this CT. COMPARISON: No relevant priors. FINDINGS: There is no intra-/extra-axial fluid collection, mass effect, or midline shift. The turner/white matter junction is preserved. Hypoattenuation of periventricular and subcortical white matter suggestive of chronic small vessel ischemic disease. Mild diffuse parenchymal volume loss is noted. There is vascular calcification. The basal cisterns are patent. Mucoperiosteal thickening of the right maxillary sinus is seen. The right frontal sinus is completely opacified. The calvarium is intact. CT/Brain/Head without Contrast IMPRESSION: No acute intracranial finding. MRI may be obtained if clinically indicated. Electronically Signed: Azam Winn MD at 17:24 EDT ,
[2022-03-02 15:41] LABS: Prothrombin Time (Protime)PT. 41.4 SECONDS (11.7-14.9)
[2022-03-02 15:48] LABS: Anion Gap 10 (5-15); BUN 25 mg/dL (7-18); BUN/Creat Ratio 16.9 RATIO (10-20); Calcium,Total 9.4 mg/dL (8.5-10.1); Chloride 105 mmol/L (98-107); Creatinine, Serum 1.48 mg/dL (0.70-1.30); EST Glomerular Filtration Rate 49 mL/min (>60); Est Glom Filt Rate - Afr Amer 60 mL/min (>60); Estimated Creatinine Clearance 49.49 ml/min; Glucose 158 mg/dL (74-106); Potassium 4.2 mmol/L (3.5-5.1); Sodium Level 138 mmol/L (136-145); Troponin-I HS 11 pg/mL (3.0-78.0)
[2022-03-02 15:51] LABS: Bedside Glucose 158 mg/dL (74-106)
--- NOTE | 2022-03-02 15:57 | EKG12_ITS ---
Test Reason : WEAKNESS Blood Pressure : / mmHG Vent. Rate : 086 BPM Atrial Rate : 086 BPM P-R Int : 194 ms QRS Dur : 146 ms QT Int : 400 ms P-R-T Axes : 094 -62 030 degrees QTc Int : 478 ms Normal sinus rhythm Right bundle branch block Left anterior fascicular block Bifascicular block Abnormal ECG Confirmed by RONEY COLBERT, DAVE ([id number]), state editor LÓPEZ BELTRE ([id number]) on 03/06/2022 7:49:03 AM Referred By: Confirmed By:DAVE SIM MD
[2022-03-02 15:59] LABS: International Normalized Ratio 4.4
[2022-03-02 16:15] LABS: White Blood Cells 0 SEEN /hpf (0-5)
[2022-03-02 16:16] LABS: Color, Urine Yellow (Yellow); Glucose, Dipstick 50 mg/dl (Normal); Ketone-Dipstick 5 mg/dl (Negative); Leukocyte Esterase-Dipstick Negative /ul (Negative); Nitrite-Dipstick Negative (Negative); Occult Blood-Urine 10 /ul (Negative); Protein-Dipstick 30 mg/dl (Negative); Specific Gravity, Urine 1.025 (1.002-1.030); Urine Bilirubin Dipstick Negative (Negative); Urine Clarity Clear (Clear); Urine Urobilinogen Normal (Normal)
[2022-03-02 16:22] VITALS: BP 142/80; PULSE 89; O2SAT 95
[2022-03-02 16:25] LABS: Mucous, Urine 3+ /hpf (<or=2+); Red Blood Cells-Urine 0-5 SEEN /hpf (0-5); Squamous Epithelial Cells - UA 0-5 SEEN /hpf (0-5)
[2022-03-02 16:26] LABS: Bacteria 2+ /hpf (None Seen); Hyaline Cast 0-5 SEEN /lpf (0-5)
[2022-03-02 18:12] VITALS: BP 152/89; PULSE 82; RESP 17; O2SAT 97
--- NOTE | 2022-03-02 19:14 | NURSING ---
patient amb to bathroom with standby assist only. He does tip back with ambulation but patient reports this is his normal gait and it is d/y missing toe.
[2022-03-02 19:48] VITALS: BP 131/79; PULSE 77; O2SAT 97
== END 2022-03-02 19:56 | disposition home or self-care (01) ==
PROVIDERS: Emergency Provider Emergency Medicine; PCP Family Medicine; Visit Provider Emergency Medicine
DX: E86.0 Dehydration (principal); E11.40 Type 2 diabetes mellitus with diabetic neuropathy, unspecified; I71.9 Aortic aneurysm of unspecified site, without rupture; Z79.4 Long term (current) use of insulin; R79.1 Abnormal coagulation profile; E78.5 Hyperlipidemia, unspecified; I10 Essential (primary) hypertension; Z86.711 Personal history of pulmonary embolism; Z86.16 Personal history of COVID-19; Z87.442 Personal history of urinary calculi; Z87.19 Personal history of other diseases of the digestive system; Z79.01 Long term (current) use of anticoagulants; Z79.899 Other long term (current) drug therapy; I45.2 Bifascicular block; R26.81 Unsteadiness on feet
CPT/HCPCS: 70450; 71045; 80048; 81001; 81002; 82962; 84484; 85025; 85610; 87811; 93005; 96360; 96361; 99285; A4216

== ENCOUNTER → 2022-03-07 | Outpatient (CLI) | payer MEDICARE, OTHER, SELFPAY ==
[2022-03-07 12:56] LABS: International Normalized Ratio 2.9; Prothrombin Time (Protime)PT. 30.2 SECONDS (11.7-14.9)
== END | disposition home or self-care (01) ==
LOC: LABSPEC 12:30
PROVIDERS: PCP Family Medicine; Visit Provider Family Medicine
DX: R79.1 Abnormal coagulation profile (principal)
CPT/HCPCS: 85610

== ENCOUNTER 2022-07-09 20:04 | Inpatient (IN) | payer MEDICARE, OTHER, SELFPAY ==
[2022-07-09 20:05] VITALS: BP 119/75; PULSE 83; RESP 15; TEMP 36.4; O2SAT 96; BMI 32.3
[2022-07-09 22:05] VITALS: PULSE 81; RESP 19; O2SAT 95
--- NOTE | 2022-07-09 22:18 | CT_ITS ---
INDICATION: AMS EXAMINATION: CT BRAIN - CT Head or Brain W/O Contrast Injection TECHNIQUE: Multiple axial images were obtained of the head without intravenous contrast. A radiation dose optimization technique was used for this scan. IV Contrast dosage and agent: None. COMPARISON: 03/02/2022 FINDINGS: BRAIN PARENCHYMA: No intra- or extra-axial hemorrhage. No evidence of acute infarct. No intracranial mass or mass effect. There is preservation of the turner/white matter interface. Posterior fossa structures are unremarkable. CSF SPACES: Appropriate for age. No hydrocephalus. Basal cisterns are patent. CALVARIUM, SKULL BASE, PARANASAL SINUSES AND MASTOID AIR CELLS: Scattered paranasal sinus mucosal thickening. No discrete lytic or blastic abnormalities. ORBITS: Both globes, extraocular muscles, optic nerves and retrobulbar fat appear unremarkable. ASPECTS Score for Acute Strokes: 10 CT/Brain/Head without Contrast IMPRESSION: No acute abnormal intracranial finding. Electronically Signed: Jesus Leung MD at 22:57 EST ,
--- NOTE | 2022-07-09 22:19 | EDS_ITS ---
HPI HPI - Fall History of Present Illness Chief Complaint: Fall Narrative Narrative: 76-year-old male presenting with confusion. Apparently he had walked out to his storage shed on his own property. His states that she thought he was gone for quite a long time. She looked out the window and saw him laying down in the snow. He was trying to get up but could not. They both reported that at baseline he would be able to do this. She states that she was able to get him onto a sled and dragged him to the house. She called her son to help her pull him into the house. They were able to get him up and he was unsteady. He has been ambulatory since then. The states she called her her other son who is an EMT and was told to come to the emergency room. Patient's states that he is at his mental baseline currently. Earlier today he did not remember that he had Arjun with friends yesterday. She states he is unsure if he hit his head. She did not see any signs of injury. He has not complained of pain anywhere. [facility] Medical History (Updated 07/09/22 @ 23:[address] 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 Upper gastrointestinal bleed Ureterolithiasis Valvular heart disease Home Medications metoprolol succinate 200 mg tablet,extended release 24 hr 200 mg PO DAILY blood pressure 09/16/13 [History Last Taken 03/02/22] losartan 50 mg tablet 50 mg PO DAILY blood pressure 03/24/18 [History Last Taken 03/02/22] metformin 500 mg 24 hr tablet,extended release 1,000 mg PO BID diabetes 03/24/18 [History Last Taken 03/02/22] atorvastatin 40 mg tablet 40 mg PO QHS cholesterol 05/22/18 [History Last Taken 03/01/22] dulaglutide 1.5 mg/0.5 mL subcutaneous pen injector (Trulicity) 1.5 mg SQ GARCIA diabetes 05/22/18 [History Last Taken 02/25/22] insulin glargine 100 unit/mL (3 mL) subcutaneous pen (Lantus Solostar U-100 Insulin) 24 units subcut DAILY diabetes 05/22/18 [History Last Taken 03/01/22] insulin lispro 100 unit/mL subcutaneous pen (Humalog KwikPen (U-100) Insulin) See Protocol SQ 4X/DAY diabetes 05/22/18 [History Last Taken 03/02/22] warfarin 5 mg tablet (Jantoven) 7.5 mg PO SUTUTHFRSA anticoagulant 05/22/18 [History Last Taken 03/01/22] ergocalciferol (vitamin D2) 1,250 mcg (50,000 unit) capsule 1,250 mcg PO GARCIA SUPPLEMENT 03/02/22 [History Last Taken 02/25/22] tamsulosin 0.4 mg capsule 0.4 mg PO QHS PROSTATE 03/02/22 [History Last Taken 03/01/22] warfarin 5 mg tablet 10 mg PO MOWE 03/02/22 [History Last Taken 02/28/22] Allergy/AdvReac Type Severity Reaction Status Date / Time propofol AdvReac Other Verified 07/09/22 20:10 Family History (Updated 07/09/22 @ 23:[address] Karen Aly MD) Mother Heart disease Other Diabetes Hypertension Surgical History (Updated 07/09/22 @ 23:[address] Karen Aly MD) H/O aortic valve repair History of foot surgery History of thoracic aortic aneurysm repair Hx of abdominal surgery Social History household members: spouse housing: house current occupational status: retired Smoking Status: Never smoker alcohol intake: never substance use type: does not use ROS ROS ED Constitutional Constitutional ED: Denies chills or fever(s) Eyes Eyes: Denies change in vision or diplopia ENT ENT ED: Denies rhinorrhea or sore throat Cardiovascular Cardiovascular: Denies chest pain or palpitations Respiratory/Chest Respiratory/Chest: Denies cough or dyspnea Gastrointestinal Gastrointestinal: Denies abdominal pain or constipation Genitourinary Genitourinary ED: Denies dysuria or hematuria Musculoskeletal Musculoskeletal: Denies arthralgias or back pain Integumentary Denies abscess or Abrasions Neurologic Neurologic: Denies headache(s) or paresthesias Psychiatric Psychiatric: Denies anxiety or depression EXAM Physical Exam Const Vital Signs: 07/09/22 20:05 07/09/22 21:17 07/09/22 22:05 Temperature 97.6 F L Temperature Source Temporal Pulse Rate 83 81 Respiratory Rate 15 19 H Respiratory Effort Normal Non-Labored Respiratory Depth Normal Respiratory Pattern Normal Blood Pressure 119/75 Blood Pressure Mean 89 Pulse Ox 96 95 Oxygen Delivery Method Room Air Room Air Room Air Oxygen Flow Rate (L/min) 97 Positive well nourished General Appearance ED: NAD HEENT Reports normocephalic atraumatic Eyes PERRL and EOMs intact bilaterally Neck full ROM Chest Wall inspection of chest normal and palpation of chest normal Resp normal respiratory effort, no retractions and clear to auscultation bilaterally Auscultation: Negative for rales, rhonchi or wheezes Cardio regular rate and regular rhythm GI non-tender Neuro oriented x3, CN's II-XII intact bilaterally, moves all extremities, no focal motor deficits and no sensory deficits noted Sensorium / Orientation: alert Psych mental status grossly normal MDM MDM MDM Narrative Medical decision making narrative: Patient presenting with confusion that he had earlier after a fall outside. It is unclear if he actually hit his head and he is on Coumadin. He has no external signs of trauma. No focal neurologic deficits or lateralizing signs or symptoms. Patient's states that his confusion has resolved for the most part at this point. It is unclear whether the patient had a TIA or a syncopal event which caused the confusion. She reports that he has been eating and drinking normally. No fevers, chills. Blood work was obtained. He is slightly social 13.6. Hemoglobin hematocrit are stable. Platelets are normal. INR is therapeutic at 3.5. Renal function electrolytes are normal. EKG obtained to assess for dysrhythmia and on my interpretation is sinus rhythm with a rate of 74 bpm without sign of ischemic change. There is a right bundle branch block noted. Chest x-ray on my interpretation shows no acute cardiopulmonary process and the radiologist interprets this and agrees. High-sensitivity troponin returned at 210. The patient does not report any chest pain today. CT brain is also negative for acute intracranial findings. Patient was discussed with Dr. Riggs who recommended admission. Since the patient is not having active chest pain and he is anticoagulated with Coumadin is therapeutic he did not believe he needed a heparin drip. Patient discussed with hospitalist for admission. Impression: 1. Altered mental status 2. NSTEMI 3. Leukocytosis 4. Fall Lab Data Attestation: I reviewed the patient's lab results. Labs: Laboratory Results - last 24 hr 07/09/22 07/09/22 07/09/22 22:27 22:27 22:27 WBC 13.6 H RBC 5.47 Hgb 14.4 Hct 45.1 MCV 82.4 MCH 26.3 L MCHC 31.9 L RDW Std Deviation 43.1 RDW Coeff of Nathaniel 14.4 Plt Count 254 MPV 9.0 Immature Gran % (Auto) 0.900 Neut % (Auto) 79.6 H Lymph % (Auto) 11.5 L [place] % (Auto) 6.5 Eos % (Auto) 1.2 Baso % (Auto) 0.3 Absolute Neuts (auto) 10.8 H Absolute Lymphs (auto) 1.56 Nucleated RBC % 0 PT 34.8 H INR 3.5 Sodium 138 Potassium 3.7 Chloride 106 Carbon Dioxide 25.0 Anion Gap 7 BUN 21 H Creatinine 1.22 Estim Creat Clear Calc 60.03 Est GFR (MDRD) Af Amer 75 Est GFR (MDRD) Non-Af 62 BUN/Creatinine Ratio 17.2 Glucose 111 H Calcium 9.4 Troponin I High Sens 210 H* Radiography Diagnostic Testing: Clinical Impression(s) from Imaging Studies Brain CT 07/09/22 22:18 IMPRESSION: No acute abnormal intracranial finding. Electronically Signed: Jesus Leung MD at 22:57 EST , Chest X-Ray 07/09/22 22:43 IMPRESSION: No radiographic evidence of acute cardiopulmonary disease. Electronically Signed: Jesus Leung MD at 22:53 EST , Discharge Plan Triage Chief Complaint: Fall ED Provider: Syed Allen Dx/Rx/DC Orders Prescriptions: No Action metoprolol succinate 200 MG tablet 200 mg PO DAILY Label Comments: HYPERTENSION losartan 50 MG tablet 50 mg PO DAILY metformin 500 MG tablet,ER mirela.retention 24 hr 1,000 mg PO BID insulin lispro [Humalog KwikPen Insulin] 100 UNIT/ML insulin pen See Protocol SQ 4X/DAY Protocol: 6. Sliding Scale Insulin Custom Condition: mg/dl range Dose/Route: Number of Units Condition: 100-200 Dose/Route: 3 Condition: 201-250 Dose/Route: 5 Condition: 251-300 Dose/Route: 8 Condition: 301-350 Dose/Route: 12 Condition: 351-400 Dose/Route: 15 Protocol Text: Custom Sliding Scale Trulicity 1.5 MG/0.5 ML pen injector 1.5 mg SQ GARCIA Rx Instructions: Saturday atorvastatin 40 MG tablet 40 mg PO QHS warfarin [Jantoven] 5 MG tablet 7.5 mg PO SUTUTHFR Label Comments: blood thinner insulin glargine [Lantus Solostar U-100 Insulin] 100 UNITS/ML insulin pen 24 units subcut DAILY tamsulosin 0.4 mg capsule 0.4 mg PO QHS Label Comments: TAKE 1 CAPSULE BY MOUTH EVERYDAY AT BEDTIME warfarin 5 mg tablet 10 mg PO MOWE Label Comments: 10 MG SATURDAY AND SATURDAY, 7.5 MG ALL OTHER DAYS. PATIENT HAS INR DRAWN BI- WEEKLY. ergocalciferol (vitamin D2) 1,250 mcg (50,000 unit) capsule 1,250 mcg PO GARCIA Label Comments: TAKE 1 CAPSULE BY MOUTH ONE TIME A WEEK. Primary Care Provider: Luis Caldera Referrals: Luis Caldera MD [Primary Care Provider] -
[2022-07-09 22:42] LABS: Absolute Lymphocyte Count 1.56 X10^3/uL (0.83-4.51); Absolute Neutrophil Count 10.8 X10^3/uL (2.0-7.7); Basophil# 0.04 X10^3/uL; Basophil% 0.3 % (0-1); Eosinophil# 0.17 X10^3/uL; Eosinophils% 1.2 % (0-5); Hematocrit 45.1 % (40-54); Hemoglobin 14.4 g/dL (13.0-16.5); Lymphocyte # 1.56 X10^3/ul (0.83-4.51); Lymphocyte % 11.5 % (19-41); Mean Corp Hgb Conc 31.9 g/dL (32-36); Mean Corpuscular Hgb 26.3 pg (27.0-32.0); Mean Corpuscular Volume 82.4 fL (80-94); Monocyte# 0.89 X10^3/uL; Monocyte% 6.5 % (0-10); NRBC Flagged by Analyzer 0 % (0-5); Neutrophil # 10.84 X10^3/uL (2.7-7.7); Neutrophil % 79.6 % (47-70); Platelet Count 254 K/mm3 (150-450); RBC Distribution Width CV 14.4 % (11.6-14.6); RBC Distribution Width SD 43.1 fl (35.1-43.9); Red Blood Count 5.47 M/mm3 (4.6-6.2); White Blood Count 13.6 K/mm3 (4.4-11.0)
--- NOTE | 2022-07-09 22:43 | RAD_ITS ---
INDICATION: AMS EXAMINATION/TECHNIQUE: X-RAY - XR Chest 1 View COMPARISON: 03/02/2022 FINDINGS: LINES/DEVICES: None. LUNGS: No consolidation, edema or effusion. No pneumothorax. MEDIASTINUM AND CARDIOVASCULAR STRUCTURES: Sternal wires and CABG redemonstrated. RAD/Chest 1 View (Portable) IMPRESSION: No radiographic evidence of acute cardiopulmonary disease. Electronically Signed: Jesus Leung MD at 22:53 EST ,
[2022-07-09 23:01] LABS: International Normalized Ratio 3.5; Prothrombin Time (Protime)PT. 34.8 SECONDS (11.7-14.9)
[2022-07-09 23:17] LABS: Anion Gap 7 (5-15); BUN 21 mg/dL (7-18); BUN/Creat Ratio 17.2 RATIO (10-20); Calcium,Total 9.4 mg/dL (8.5-10.1); Chloride 106 mmol/L (98-107); Creatinine, Serum 1.22 mg/dL (0.70-1.30); EST Glomerular Filtration Rate 62 mL/min (>60); Est Glom Filt Rate - Afr Amer 75 mL/min (>60); Estimated Creatinine Clearance 60.03 ml/min; Glucose 111 mg/dL (74-106); Potassium 3.7 mmol/L (3.5-5.1); Sodium Level 138 mmol/L (136-145); Troponin-I HS 210 pg/mL (3.0-78.0)
[2022-07-09 23:29] LABS: Squamous Epithelial Cells - UA 0 SEEN /hpf (0-5)
[2022-07-09 23:38] LABS: Color, Urine Yellow (Yellow); Glucose, Dipstick Normal (Normal); Ketone-Dipstick 5 mg/dl (Negative); Leukocyte Esterase-Dipstick Negative /ul (Negative); Nitrite-Dipstick Negative (Negative); Occult Blood-Urine 25 /ul (Negative); Protein-Dipstick 30 mg/dl (Negative); Specific Gravity, Urine 1.025 (1.002-1.030); Urine Bilirubin Dipstick Negative (Negative); Urine Clarity Clear (Clear); Urine Urobilinogen 1 mg/dl (Normal)
--- NOTE | 2022-07-09 23:55 | HP.PCM.HOS_ITS ---
HPI - General General Date of Admission: 07/09/22 Date of Service: 07/09/22 Chief Complaint: Transient confusion, possible syncope HPI Narrative The patient is a 76 y/o M w/ PMHx: Hx AAA, Valvular heart disease, Hx COVID-19 illness, HTN, HLD, Hx VTE (DVT, PE), Hx GI Bleed, Hx RLE osteomyelitis prior, Obesity, Diabetes mellitus type II, Obesity, BPH who presents to the [facility] ED on 07/09/22 with history of confusion reportedly having walked out to his storage shed on his property and noted that he had been gone for quite some time prompting to eventually look at the window where she saw him laying down in the snow attempting to get up but he could not eventually dragging him onto a slide and into the house at which point she called her son who was able to help but he was noted to be unsteady on his feet reportedly at his mental status baseline however earlier in the day they reported that he did not remember the events of [place] the day prior prompting eventual ED evaluation. Patient and patient are unsure if he hit his head or if there is any trauma but there is no sign of any injury on evaluation. Patient denies any current complaints. reports that patient is returned to his baseline and that his confusion has now resolved. Work-up in the ED included T97.6, heart rate 83, BP 119/75, respiratory rate 15, 96% on room air, CBC with WBC 13.6, hemoglobin 14.4, platelet 254 with left shift, coags with PT 34.8, INR 3.5, BMP with BUN/creat 21/1.22, glucose 111, troponin 210 with last noted prior to this 03/02/22 troponin 11, CT of the brain with no acute intracranial findings, chest x-ray with no acute cardiopulmonary findings, EKG with sinus rhythm with right bundle branch block with no acute evidence of ischemia, urinalysis pending upon requested evaluation of patient. [facility] Medical History (Updated 07/10/22 @ 02:[address] 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 Upper gastrointestinal bleed Ureterolithiasis Valvular heart disease Home Medications metoprolol succinate 200 mg tablet,extended release 24 hr 200 mg PO DAILY blood pressure 09/16/13 [History Last Taken 03/02/22] losartan 50 mg tablet 50 mg PO DAILY blood pressure 03/24/18 [History Last Taken 03/02/22] metformin 500 mg 24 hr tablet,extended release 1,000 mg PO BID diabetes 03/24/18 [History Last Taken 03/02/22] atorvastatin 40 mg tablet 40 mg PO QHS cholesterol 05/22/18 [History Last Taken 03/01/22] dulaglutide 1.5 mg/0.5 mL subcutaneous pen injector (Trulicity) 1.5 mg SQ GARCIA diabetes 05/22/18 [History Last Taken 02/25/22] insulin glargine 100 unit/mL (3 mL) subcutaneous pen (Lantus Solostar U-100 Insulin) 24 units subcut DAILY diabetes 05/22/18 [History Last Taken 03/01/22] insulin lispro 100 unit/mL subcutaneous pen (Humalog KwikPen (U-100) Insulin) See Protocol SQ 4X/DAY diabetes 05/22/18 [History Last Taken 03/02/22] warfarin 5 mg tablet (Jantoven) 7.5 mg PO SUTUTHFRSA anticoagulant 05/22/18 [History Last Taken 03/01/22] ergocalciferol (vitamin D2) 1,250 mcg (50,000 unit) capsule 1,250 mcg PO GARCIA SUPPLEMENT 03/02/22 [History Last Taken 02/25/22] tamsulosin 0.4 mg capsule 0.4 mg PO QHS PROSTATE 03/02/22 [History Last Taken 03/01/22] warfarin 5 mg tablet 10 mg PO MOWE 03/02/22 [History Last Taken 02/28/22] Allergy/AdvReac Type Severity Reaction Status Date / Time propofol AdvReac Other Verified 07/09/22 20:10 Family History (Updated 07/10/22 @ 02:[address] Karen Aly MD) Mother Heart disease Diabetes Hypertension Father Heart disease Surgical History (Updated 07/09/22 @ 23:[address] Karen Aly MD) H/O aortic valve repair History of foot surgery History of thoracic aortic aneurysm repair Hx of abdominal surgery Social History household members: spouse housing: house current occupational status: retired Smoking Status: Never smoker alcohol intake: never substance use type: does not use ROS ROS Narrative Admission Review of Systems: CONSTITUTIONAL: No weight loss, fever, chills, + weakness or fatigue. HEENT: Eyes: No visual loss, blurred vision, double vision or yellow sclerae. Ears, Nose, Throat: No hearing loss, sneezing, congestion, runny nose or sore throat. SKIN: No rash or itching, lesions, wounds. CARDIOVASCULAR: No chest pain, chest pressure or chest discomfort, palpitations, edema, orthopnea, syncopal events. RESPIRATORY: No shortness of breath, cough or sputum, wheezing, hemoptysis. GASTROINTESTINAL: No anorexia, nausea, vomiting or diarrhea, abdominal pain, melena, BRBPR. GENITOURINARY: No dysuria, frequency, urgency or retention. NEUROLOGICAL: + Transient confusion, weakness. No headache, dizziness, syncope, paralysis, ataxia, numbness or tingling in the extremities, focal weakness, change in bowel or bladder control, seizure. MUSCULOSKELETAL: + muscle, back pain, joint pain or stiffness. HEMATOLOGIC: + Easy bleeding or bruising. LYMPHATICS: No enlarged nodes. No history of splenectomy. PSYCHIATRIC: No history of depression or anxiety. ENDOCRINOLOGIC: No reports of sweating, cold or heat intolerance. No polyuria or polydipsia. ALLERGIES: No history of asthma, hives, eczema or rhinitis. Vital Signs Vital Signs Vital Signs: 07/09/22 20:05 07/09/22 21:17 07/09/22 22:05 Temperature 97.6 F L Temperature Source Temporal Pulse Rate 83 81 Respiratory Rate 15 19 H Respiratory Effort Normal Non-Labored Respiratory Depth Normal Respiratory Pattern Normal Blood Pressure 119/75 Blood Pressure Mean 89 Pulse Ox 96 95 Oxygen Delivery Method Room Air Room Air Room Air Oxygen Flow Rate (L/min) 97 Weight Weight: 245 lb Body Mass Index (BMI) 32.3 Physical Exam Narrative Physical Examination: General: Awake, alert, oriented to self, place, month, president and initially was about to give the wrong year but corrected himself very quickly, remains cooperative, seated upright in bed in no apparent distress, family do feel as though he is back to his baseline. Skin: Normal color, normal turgor, no icterus, no cyanosis. HEENT: AT/NC, EOMI, PERRLA, mildly dry MM, no carotid bruits or JVD noted. Lungs: Mildly diminished, greater bases, appropriate effort, no rales, ronchi or wheezing. Heart: Regular rate and rhythm; no gallop, rub audible. Abdomen: Soft, obese, NTTP, ND, mildly hyperactive BS, no HSM. Extremities: No cyanosis, clubbing, or edema. Neurological: Patient awake, alert, oriented as noted, cognitive function improved, currently baseline intact; pupils equally reactive to light and accommodation, cranial nerves II-XII grossly normal, moving all 4 extremities, no focal deficits, strength mildly global decreased, improved from prior Psychiatric: Affect appears jovial, making jokes, no acute evidence of depressive or anxiety feelings. Results Lab / Micro Data Result Diagrams: 07/09/22 22:27 07/09/22 22:27 Labs: Laboratory Results - last 24 hr 07/09/22 22:27: WBC 13.6 H, RBC 5.47, Hgb 14.4, Hct 45.1, MCV 82.4, MCH 26.3 L, MCHC 31.9 L, RDW Std Deviation 43.1, RDW Coeff of Nathaniel 14.4, Plt Count 254, MPV 9.0, Immature Gran % (Auto) 0.900, Neut % (Auto) 79.6 H, Lymph % (Auto) 11.5 L, [place] % (Auto) 6.5, Eos % (Auto) 1.2, Baso % (Auto) 0.3, Absolute Neuts (auto) 10.8 H, Absolute Lymphs (auto) 1.56, Nucleated RBC % 0 07/09/22 22:27: PT 34.8 H, INR 3.5 07/09/22 22:27: Sodium 138, Potassium 3.7, Chloride 106, Carbon Dioxide 25.0, Anion Gap 7, BUN 21 H, Creatinine 1.22, Estim Creat Clear Calc 60.03, Est GFR (MDRD) Af Amer 75, Est GFR (MDRD) Non-Af 62, BUN/Creatinine Ratio 17.2, Glucose 111 H, Calcium 9.4, Troponin I High Sens 210 H* Radiology Impression Brain CT 07/09/22 22:18 IMPRESSION: No acute abnormal intracranial finding. Electronically Signed: Jesus Leung MD at 22:57 EST , Chest X-Ray 07/09/22 22:43 IMPRESSION: No radiographic evidence of acute cardiopulmonary disease. Electronically Signed: Jesus Leung MD at 22:53 EST , Assessment & Plan Assessment/Plan (1) NSTEMI, initial episode of care: PLAN: Plan The patient is a 76 y/o M w/ PMHx: Hx AAA, Valvular heart disease, Hx COVID-19 illness, HTN, HLD, Hx VTE (DVT, PE), Hx GI Bleed, Hx RLE osteomyelitis prior, Obesity, Diabetes mellitus type II, Obesity, BPH who presents to the [facility] ED on 07/09/22 with history of confusion reportedly having walked out to his storage shed on his property and noted that he had been gone for quite some time prompting to eventually look at the window where she saw him laying down in the snow attempting to get up but he could not eventually dragging him onto a slide and into the house at which point she called her son who was able to help but he was noted to be unsteady on his feet reportedly at his mental status baseline however earlier in the day they reported that he did not remember the events of [place] the day prior prompting eventual ED evaluation. #1. Elevated cardiac troponin ruling in as NSTEMI, unclear type: EKG in ED w/ sinus rhythm with right bundle branch block with no acute evidence of ischemia, CXR w/ no acute cardiopulmonary findings, Trop elevated, 210. Will admit to PCU, maintain on a monitored bed, continue serial cardiac enzymes and EKGs. Obtain magnesium level upon admission. Patient is therapeutic on his Coumadin with INR 3.5, will repeat INR level in a.m. and hold Coumadin pending cardiology assessment. Echocardiogram requested. Continue medical management w/ asa, BB, losartan, statin w/ AM FLP. Cardiology consulted. Maintain NPO after midnight. ASA, NG, morphine. #2. Transient confusion with fall, unclear closed head trauma: CT of the head with no acute findings, transient confusion with memory loss however since resolved, will maintain on fall precautions, to be cautious given unclear events will obtain MRI of the brain to be thorough given unclear events as certainly could be more consistent with transient ischemic attack but very unclear events and given significantly elevated cardiac enzymes certainly could be contributing. If any concerning findings on MRI brain would pursue additional evaluation. #3. Diabetes mellitus type II: Hold oral home regimen, continue home insulin regimen, ADA diet until n.p.o. status, accu checks w/ ISS. #4. Valvular heart disease: Patient with status post aortic valve repair/replacement 2006, 03/26/2018 echocardiogram with EF 65%, stage I diastolic dysfunction, mild MVI, mild TVI, RVSP 30 mmHg, trivial aortic insufficiency with at that time stable appearing bioprosthetic aortic valve apparatus #5. History of VTE: Patient with history DVT, PE, maintain currently on Coumadin, INR upon presentation 3.5, will temporarily hold given it is above 3 and repeat INR in a.m. with resumption once appropriate and pending cardiology evaluation as noted above #1. #6. History thoracic AAA: Patient status post repair of his thoracic aortic aneurysm 2006. #7. Hypertension: Continue home regimen including metoprolol, losartan, PRN hydralazine. #8. Hyperlipidemia: We will continue patient on statin therapy. FLP in AM. #9. Obesity: Weight loss and lifestyle changes encouraged. #10. BPH: We will continue patient on Flomax regimen. #11. DVT prophylaxis: SCDs, INR 3.5 upon presentation, temporarily holding Coumadin with repeat level in AM. #12. CODE status: Patient ANTHONY is their son Teddy and living will is currently in place. Discussed CODE status at length including difference between FULL code, DNR-CCA and DNR-CC status. Following discussions about the differences in these status, requested Full Code status. Advanced Care Planning Face to Face Time: 16 minutes. Charges/Coding Visit Charges Inpatient E&M: 78166 Init Hosp L3 Procedures Hospitalists Procedures: 81807 Advncd Care Plan 30 Min
[2022-07-10] VITALS (11 sets, daily range): BP systolic 123–150; BP diastolic 69–83; PULSE 63–76; RESP 16–19; TEMP 36.3–36.7; O2SAT 96–98; BMI 33.6
[2022-07-10 00:53] LABS: Bacteria 1+ /hpf (None Seen); Hyaline Cast 0-5 SEEN /lpf (0-5); Mucous, Urine 1+ /hpf (<or=2+); Red Blood Cells-Urine 0-5 SEEN /hpf (0-5); White Blood Cells 0-5 SEEN /hpf (0-5)
--- NOTE | 2022-07-10 02:16 | EKG12_ITS ---
Test Reason : AM EKG Blood Pressure : / mmHG Vent. Rate : 068 BPM Atrial Rate : 068 BPM P-R Int : 198 ms QRS Dur : 140 ms QT Int : 454 ms P-R-T Axes : 074 -60 013 degrees QTc Int : 482 ms Normal sinus rhythm Left axis deviation Right bundle branch block Inferior infarct , age undetermined , cannot be excluded Abnormal ECG Confirmed by RONEY COLBERT, DAVE ([id number]), society editor SOFIA CAMERON ([id number]) on 07/12/2022 8:12:24 AM Referred By: Confirmed By:DAVE SIM MD
[2022-07-10 02:35] LABS: Magnesium 1.7 mg/dL (1.6-2.6)
--- NOTE | 2022-07-10 03:04 | ECHOD_ITS ---
Reason For Study: NSTEMI Procedure This was a 2D Doppler, Color Flow transthoracic echocardiogram. Exam performed portable in patient room. Left Ventricle Moderate concentric left ventricular hypertrophy. Normal LV size. Left ventricular systolic function is normal. The left ventricular ejection fraction is 65 %. Right Ventricle Normal right ventricle. Atria The left atrium is severely enlarged. Normal right atrium. Mitral Valve Mild (1+) mitral valve insufficiency. Tricuspid Valve Normal tricuspid valve. Aortic Valve Trivial aortic valve insufficiency. Pulmonic Valve The pulmonic valve is not well visualized. Great Vessels Calcified aortic root. Pericardium/Pleural No pericardial effusion. MMode/2D Measurements & Calculations Ao root diam: 3.3 cm LAV(MOD-bp): 68.5 ml LVAd ap4: 30.6 cm2 LAV(MOD-bp) Indexed: 28.7 ml/m2 LVLd ap4: 8.7 cm LAV(MOD-sp2): 68.4 ml EDV(MOD-sp4): 88.6 ml LAV(MOD-sp4): 57.7 ml EDV(sp4-el): 91.3 ml LVAs ap4: 15.5 cm2 LVLs ap4: 7.9 cm ESV(MOD-sp4): 34.7 ml ESV(sp4-el): 25.7 ml EF(MOD-sp4): 60.8 % EF(sp4-el): 71.8 % SV(MOD-sp4): 53.9 ml SV(sp4-el): 65.5 ml LA A4 area: 19.5 cm2 LA dimension(2D): 5.8 cm RA A4 area: 18.9 cm2 Time Measurements MV dec time: 0.36 sec Doppler Measurements & Calculations MV E max saud: 60.9 cm/sec Lat Peak E' Saud: 9.0 cm/sec Med Peak E' Saud: 5.0 cm/sec MV A max saud: 82.3 cm/sec E/E' lat: 6.8 E/E' med: 12.3 MV E/A: 0.74 MV V2 max: 88.9 cm/sec MV dec slope: 173.4 cm/sec2 Ao V2 max: 152.8 cm/sec MV max P.2 mmHg Ao max P.3 mmHg MV V2 mean: 49.7 cm/sec Ao V2 mean: 102.6 cm/sec MV mean P.1 mmHg Ao mean P.8 mmHg MV V2 VTI: 33.9 cm Ao V2 VTI: 33.7 cm AV (velocity ratio): 0.76 LV V1 max: 113.2 cm/sec PA V2 max: 75.5 cm/sec LV V1 max P.1 mmHg PA V2 mean: 48.4 cm/sec LV V1 mean P.0 mmHg LV V1 mean: 81.9 cm/sec LV V1 VTI: 25.7 cm ECHO/Echo Complete Interpretation Summary Moderate concentric left ventricular hypertrophy. The left ventricular ejection fraction is 65 %. Left ventricular systolic function is normal. The left atrium is severely enlarged. Mild (1+) mitral valve insufficiency. Calcified aortic root. Ordering Physician: Karen Aly Referring Physician: PETER CHOI Performed By: Linette Lange RCS
[2022-07-10] MEDS: 0.9% Normal Saline 1,000 ML 100 ML IV (03:52)
[2022-07-10 04:34] LABS: AST(SGOT) 17 U/L (15-37); Alanine Aminotransfer ALT/SGPT 26 U/L (16-61); Albumin, Serum 3.3 g/dL (3.2-5.0); Alkaline Phosphatase 113 U/L (45-117); Anion Gap 7 (5-15); BUN 20 mg/dL (7-18); BUN/Creat Ratio 14.2 RATIO (10-20); Calcium,Total 8.7 mg/dL (8.5-10.1); Chloride 104 mmol/L (98-107); Creatinine, Serum 1.41 mg/dL (0.70-1.30); EST Glomerular Filtration Rate 52 mL/min (>60); Est Glom Filt Rate - Afr Amer 63 mL/min (>60); Estimated Creatinine Clearance 51.94 ml/min; Globulin 3.2 g/dL (2.2-4.2); Glucose 127 mg/dL (74-106); Potassium 3.8 mmol/L (3.5-5.1); Protein, Total 6.5 g/dL (6.4-8.2); Sodium Level 139 mmol/L (136-145); Thyroid Stim Hormone (TSH) 1.03 uIU/mL (0.358-3.74)
[2022-07-10 04:42] LABS: Troponin-I HS 142 pg/mL (3.0-78.0)
--- NOTE | 2022-07-10 05:55 | MRI_ITS ---
EXAM: MR HEAD WITHOUT INTRAVENOUS CONTRAST CLINICAL INDICATION: Transient amnesia TECHNIQUE: Multiplanar and multisequence MR images of the brain were obtained without intravenous contrast. This report was created using [employer] report generation technology. COMPARISON: MRI brain without contrast 12/28/2021. FINDINGS: BRAIN AND EXTRA-AXIAL SPACES: T2 FLAIR hyperintensity foci in the periventricular white matter more in the subcortical white matter are chronic white matter ischemic changes. No intra- or extra-axial hemorrhage. No intracranial mass or mass effect. Posterior fossa structures are unremarkable. No hydrocephalus. Basal cisterns are patent. SELLA: Unremarkable. Normal sella turcica, pituitary gland, infundibular stalk, optic chiasm and hypothalamus. AUDITORY SYSTEM: Unremarkable. The internal auditory canals are patent. BONES/JOINTS: Unremarkable. No discrete lytic or blastic abnormalities. SINUSES: Mucosal thickening in the frontal sinus and right maxillary sinus are unchanged. MASTOID AIR CELLS: Unremarkable as visualized. Clear. ORBITS: Unremarkable as visualized. Both globes, extraocular muscles, optic nerves and retrobulbar fat appear unremarkable. VASCULATURE: Unremarkable as visualized. Normal flow voids in the major intracranial circulation. NASAL CAVITY/SEPTUM: Possible polyp in the right nasal vault. MRI/Brain without Contrast IMPRESSION: 1. No MRI evidence of acute or subacute ischemic infarct, intracranial mass or acute intracranial abnormality. 2. Chronic white matter ischemic changes in both cerebral hemispheres. 3. 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 4. Possible polyp in the right nasal vault. This is unchanged. Endoscopy will be helpful for further clarification. 5. No significant interval change when compared to 12/28/2021. Electronically Signed: Hero Hayes MD at 11:50 EST ,
[2022-07-10 07:11] LABS: Bedside Glucose 105 mg/dL (74-106)
[2022-07-10 07:34] LABS: Troponin-I HS 103 pg/mL (3.0-78.0)
[2022-07-10] MEDS: Aspirin E.C. 81 MG Tablet PO (09:31)
--- NOTE | 2022-07-10 10:05 | CASEMGMT ---
JACEY MASON Face to Face with patient for initial transition planning/care coordination assessment. RN CM introduced self and role at [facility]. Patient lying in bed, alert and oriented. Patient willing to participate in assessment and is able to answer all questions appropriately. Care providers, pharmacy, and demographics verified. Patient wishes to discharge home, denies need for home health at this time. Patient states he has no further needs or concerns at this time. CM to follow for discharge planning needs that may arise. 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 Patient states he is independent and able to ambulate stairs. Transportation: DME/HHC: Patient states he has shower chair, cane, and grab bars at home. Patient has been to [facility] in the past. Patient has had [facility] and [facility] in the past. Disposition Plan: Patient to discharge home with family support and follow-up plans in place. Will monitor for therapy at discharge. Shirley GUEVARA, RN, CM
--- NOTE | 2022-07-10 10:47 | PCM.CONS.C ---
Assessment & Plan Assessment/Plan (1) NSTEMI, initial episode of care: PLAN: Likely type II. Normal left ventricular systolic function. Check Lexiscan stress Cardiolite. (2) History of pulmonary embolism: PLAN: On warfarin. (3) HTN (hypertension): PLAN: Controlled. (4) History of thoracic aortic aneurysm repair: HPI Consult Data Date of Consult: 07/10/22 HPI Narrative Reason for Consultation: Elevated troponin HPI Narrative: 76-year-old gentleman with past medical history significant for hypertension, diabetes mellitus and thromboembolic disease. According to him, he went out of his house yesterday and tripped and fell. No loss of consciousness. According to him, he was unable to get up. Denies any chest pain or shortness of breath. No palpitations. Was finally able to drag himself up but as per his , he was unsteady on his feet and therefore was brought to the hospital. In the emergency room, he was noted to have elevated troponin. Subsequently he has been admitted. [facility] Medical History (Updated 07/10/22 @ 10:[address] 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 Upper gastrointestinal bleed Ureterolithiasis Valvular heart disease Home Medications metoprolol succinate 200 mg tablet,extended release 24 hr 200 mg PO DAILY blood pressure 09/16/13 [History Last Taken 03/02/22] losartan 50 mg tablet 50 mg PO DAILY blood pressure 03/24/18 [History Last Taken 03/02/22] metformin 500 mg 24 hr tablet,extended release 1,000 mg PO BID diabetes 03/24/18 [History Last Taken 03/02/22] atorvastatin 40 mg tablet 40 mg PO QHS cholesterol 05/22/18 [History Last Taken 03/01/22] dulaglutide 1.5 mg/0.5 mL subcutaneous pen injector (Trulicity) 1.5 mg SQ GARCIA diabetes 05/22/18 [History Last Taken 02/25/22] insulin glargine 100 unit/mL (3 mL) subcutaneous pen (Lantus Solostar U-100 Insulin) 24 units subcut DAILY diabetes 05/22/18 [History Last Taken 03/01/22] insulin lispro 100 unit/mL subcutaneous pen (Humalog KwikPen (U-100) Insulin) See Protocol SQ 4X/DAY diabetes 05/22/18 [History Last Taken 03/02/22] warfarin 5 mg tablet (Jantoven) 7.5 mg PO SUTUTHFRSA anticoagulant 05/22/18 [History Last Taken 03/01/22] ergocalciferol (vitamin D2) 1,250 mcg (50,000 unit) capsule 1,250 mcg PO GARCIA SUPPLEMENT 03/02/22 [History Last Taken 02/25/22] tamsulosin 0.4 mg capsule 0.4 mg PO QHS PROSTATE 03/02/22 [History Last Taken 03/01/22] warfarin 5 mg tablet 10 mg PO MOWE 03/02/22 [History Last Taken 02/28/22] Allergy/AdvReac Type Severity Reaction Status Date / Time propofol AdvReac Other Verified 07/09/22 20:10 Family History (Updated 07/10/22 @ 02:[address] Karen Aly MD) Mother Heart disease Diabetes Hypertension Father Heart disease Surgical History (Updated 07/10/22 @ 10:[address] Olga Lidia Rasheed MD) H/O aortic valve repair History of foot surgery History of thoracic aortic aneurysm repair Hx of abdominal surgery Social History household members: spouse housing: house current occupational status: retired Smoking Status: Never smoker alcohol intake: never substance use type: does not use Physical Exam Narrative Comfortable. No apparent distress. Heart sounds 1 and 2 are normal. Chest clear to auscultation bilaterally. Alert oriented x3. No ankle edema. Risk Stratification Risk Stratification Applicable: No Objective Data Vital Signs: Vital Signs Temp Pulse Resp BP Pulse Ox O2 Del Method O2 Flow Rate 97.7 F L 66 16 128/69 H 97 Room Air 97 07/10/22 07:43 07/10/22 07:43 07/10/22 07:43 07/10/22 07:43 07/10/22 07:43 07/10/22 07:43 07/09/22 21:17 Oxygen Flow Rate (L/min) 97 Oxygen Delivery Method Room Air Weight: 255 lb 2 oz Body Mass Index (BMI) 33.6 Lab / Micro Data Result Diagrams: 07/09/22 22:27 07/10/22 03:45 Labs: Laboratory Results - last 24 hr 07/09/22 22:27: WBC 13.6 H, RBC 5.47, Hgb 14.4, Hct 45.1, MCV 82.4, MCH 26.3 L, MCHC 31.9 L, RDW Std Deviation 43.1, RDW Coeff of Nathaniel 14.4, Plt Count 254, MPV 9.0, Immature Gran % (Auto) 0.900, Neut % (Auto) 79.6 H, Lymph % (Auto) 11.5 L, [place] % (Auto) 6.5, Eos % (Auto) 1.2, Baso % (Auto) 0.3, Absolute Neuts (auto) 10.8 H, Absolute Lymphs (auto) 1.56, Nucleated RBC % 0 07/09/22 22:27: PT 34.8 H, INR 3.5 07/09/22 22:27: Sodium 138, Potassium 3.7, Chloride 106, Carbon Dioxide 25.0, Anion Gap 7, BUN 21 H, Creatinine 1.22, Estim Creat Clear Calc 60.03, Est GFR (MDRD) Af Amer 75, Est GFR (MDRD) Non-Af 62, BUN/Creatinine Ratio 17.2, Glucose 111 H, Calcium 9.4, Troponin I High Sens 210 H* 07/09/22 22:27: Magnesium 1.7 07/09/22 23:19: Urine Color Yellow, Urine Clarity Clear, Urine pH 5.0, Ur Specific [place] 1.025, Urine Protein 30 H, Urine Glucose (UA) Normal, Urine Ketones 5 H, Urine Occult Blood 25 H, Urine Nitrite Negative, Urine Bilirubin Negative, Urine Urobilinogen 1 H, Ur Leukocyte Esterase Negative, Urine RBC 0-5 SEEN, Urine WBC 0-5 SEEN, Ur Squamous Epith Cells 0 SEEN, Urine Bacteria 1+, Hyaline Casts 0-5 SEEN, Urine Mucus 1+ 07/10/22 03:45: Sodium 139, Potassium 3.8, Chloride 104, Carbon Dioxide 28.0, Anion Gap 7, BUN 20 H, Creatinine 1.41 H, Estim Creat Clear Calc 51.94, Est GFR (MDRD) Af Amer 63, Est GFR (MDRD) Non-Af 52 L, BUN/Creatinine Ratio 14.2, Glucose 127 H, Calcium 8.7, Total Bilirubin 0.90, AST 17, ALT 26, Alkaline Phosphatase 113, Total Protein 6.5, Albumin 3.3, Globulin 3.2, Albumin/Globulin Ratio 1.0, TSH 1.03 07/10/22 03:45: Troponin I High Sens 142 H* 07/10/22 06:51: POC Glucose 105 07/10/22 07:00: Troponin I High Sens 103 H Rhythm Strip Rhythm Strip: Sinus Rhythm Cardiology Labs/Tests 07/09/22 22:27: WBC 13.6 H, RBC 5.47, Hgb 14.4, Hct 45.1, MCV 82.4, MCH 26.3 L, MCHC 31.9 L, Plt Count 254, MPV 9.0, Immature Gran % (Auto) 0.900, Neut % (Auto) 79.6 H, Lymph % (Auto) 11.5 L, [place] % (Auto) 6.5, Eos % (Auto) 1.2, Baso % (Auto) 0.3, Absolute Neuts (auto) 10.8 H, Nucleated RBC % 0 07/09/22 22:27: PT 34.8 H, INR 3.5 07/09/22 22:27: Sodium 138, Potassium 3.7, Chloride 106, Carbon Dioxide 25.0, Anion Gap 7, BUN 21 H, Creatinine 1.22, Est GFR (MDRD) Af Amer 75, Est GFR (MDRD) Non-Af 62, BUN/Creatinine Ratio 17.2, Glucose 111 H, Calcium 9.4 07/09/22 22:27: Magnesium 1.7 07/09/22 23:19: Urine Color Yellow, Urine Clarity Clear, Urine pH 5.0, Ur Specific [place] 1.025, Urine Protein 30 H, Urine Glucose (UA) Normal, Urine Ketones 5 H, Urine Occult Blood 25 H, Urine Nitrite Negative, Urine Bilirubin Negative, Urine Urobilinogen 1 H, Ur Leukocyte Esterase Negative, Urine RBC 0-5 SEEN, Urine WBC 0-5 SEEN 07/10/22 03:45: Sodium 139, Potassium 3.8, Chloride 104, Carbon Dioxide 28.0, Anion Gap 7, BUN 20 H, Creatinine 1.41 H, Est GFR (MDRD) Af Amer 63, Est GFR (MDRD) Non-Af 52 L, BUN/Creatinine Ratio 14.2, Glucose 127 H, Calcium 8.7, Total Bilirubin 0.90 Rhythm: EKG: ECHO: Stress Test: Cardiac Cath: PCI: CT Surgery: Holter monitor: EPS: PPM: CXR: Chest CT Scan: Radiography Diagnostic Testing: Radiology Impression Brain CT 07/09/22 22:18 IMPRESSION: No acute abnormal intracranial finding. Electronically Signed: Jesus Leung MD at 22:57 EST , Chest X-Ray 07/09/22 22:43 IMPRESSION: No radiographic evidence of acute cardiopulmonary disease. Electronically Signed: Jesus Leung MD at 22:53 EST , Echocardiogram 07/10/22 03:04 Interpretation Summary Moderate concentric left ventricular hypertrophy. The left ventricular ejection fraction is 65 %. Left ventricular systolic function is normal. The left atrium is severely enlarged. Mild (1+) mitral valve insufficiency. Calcified aortic root. Ordering Physician: Karen Aly Referring Physician: PETER CHOI Performed By: Linette Lange RCS
[2022-07-10 11:58] LABS: Basophil# 0.04 X10^3/uL; Basophil% 0.3 % (0-1); Eosinophil# 0.22 X10^3/uL; Eosinophils% 1.9 % (0-5); Hematocrit 42.7 % (40-54); Hemoglobin 14.2 g/dL (13.0-16.5); Lymphocyte % 13.8 % (19-41); Mean Corp Hgb Conc 33.3 g/dL (32-36); Mean Corpuscular Hgb 27.4 pg (27.0-32.0); Mean Corpuscular Volume 82.3 fL (80-94); Monocyte# 0.71 X10^3/uL; Monocyte% 6.1 % (0-10); NRBC Flagged by Analyzer 0 % (0-5); Neutrophil # 8.96 X10^3/uL (2.7-7.7); Platelet Count 230 K/mm3 (150-450); RBC Distribution Width CV 14.7 % (11.6-14.6); RBC Distribution Width SD 44.1 fl (35.1-43.9); Red Blood Count 5.19 M/mm3 (4.6-6.2); White Blood Count 11.6 K/mm3 (4.4-11.0)
--- NOTE | 2022-07-10 12:06 | PCM.PN.HOSP ---
Subjective Subjective Had presented with some confusion and weakness, reports he is beginning to feel better today. Denies chest pain or shortness of breath at this time Objective Data Objective Data Vital Signs: Vital Signs Temp Pulse Resp BP Pulse Ox O2 Del Method O2 Flow Rate 97.6 F L 63 18 137/83 H 98 Room Air 97 07/10/22 11:40 07/10/22 11:40 07/10/22 11:40 07/10/22 11:40 07/10/22 11:40 07/10/22 11:40 07/09/22 21:17 Oxygen Flow Rate (L/min) 97 Oxygen Delivery Method Room Air Weight: 115.723 kg Body Mass Index (BMI) 33.6 Intake & Output: Intake and Output for Last 24 Hours 07/08/22 07/09/22 07/10/22 23:59 23:59 23:59 Intake Total 655 / 655 Balance 655 / 655 Lab / Micro Data Result Diagrams: 07/10/22 11:42 07/10/22 03:45 Labs: Laboratory Results - last 24 hr 07/09/22 22:27: WBC 13.6 H, RBC 5.47, Hgb 14.4, Hct 45.1, MCV 82.4, MCH 26.3 L, MCHC 31.9 L, RDW Std Deviation 43.1, RDW Coeff of Nathaniel 14.4, Plt Count 254, MPV 9.0, Immature Gran % (Auto) 0.900, Neut % (Auto) 79.6 H, Lymph % (Auto) 11.5 L, [place] % (Auto) 6.5, Eos % (Auto) 1.2, Baso % (Auto) 0.3, Absolute Neuts (auto) 10.8 H, Absolute Lymphs (auto) 1.56, Nucleated RBC % 0 07/09/22 22:27: PT 34.8 H, INR 3.5 07/09/22 22:27: Sodium 138, Potassium 3.7, Chloride 106, Carbon Dioxide 25.0, Anion Gap 7, BUN 21 H, Creatinine 1.22, Estim Creat Clear Calc 60.03, Est GFR (MDRD) Af Amer 75, Est GFR (MDRD) Non-Af 62, BUN/Creatinine Ratio 17.2, Glucose 111 H, Calcium 9.4, Troponin I High Sens 210 H* 07/09/22 22:27: Magnesium 1.7 07/09/22 23:19: Urine Color Yellow, Urine Clarity Clear, Urine pH 5.0, Ur Specific [place] 1.025, Urine Protein 30 H, Urine Glucose (UA) Normal, Urine Ketones 5 H, Urine Occult Blood 25 H, Urine Nitrite Negative, Urine Bilirubin Negative, Urine Urobilinogen 1 H, Ur Leukocyte Esterase Negative, Urine RBC 0-5 SEEN, Urine WBC 0-5 SEEN, Ur Squamous Epith Cells 0 SEEN, Urine Bacteria 1+, Hyaline Casts 0-5 SEEN, Urine Mucus 1+ 07/10/22 03:45: Sodium 139, Potassium 3.8, Chloride 104, Carbon Dioxide 28.0, Anion Gap 7, BUN 20 H, Creatinine 1.41 H, Estim Creat Clear Calc 51.94, Est GFR (MDRD) Af Amer 63, Est GFR (MDRD) Non-Af 52 L, BUN/Creatinine Ratio 14.2, Glucose 127 H, Calcium 8.7, Total Bilirubin 0.90, AST 17, ALT 26, Alkaline Phosphatase 113, Total Protein 6.5, Albumin 3.3, Globulin 3.2, Albumin/Globulin Ratio 1.0, TSH 1.03 07/10/22 03:45: Troponin I High Sens 142 H* 07/10/22 06:51: POC Glucose 105 07/10/22 07:00: Troponin I High Sens 103 H 07/10/22 11:42: WBC 11.6 H, RBC 5.19, Hgb 14.2, Hct 42.7, MCV 82.3, MCH 27.4, MCHC 33.3, RDW Std Deviation 44.1 H, RDW Coeff of Nathaniel 14.7 H, Plt Count 230, MPV 9.0, Immature Gran % (Auto) 0.900, Neut % (Auto) 77.0 H, Lymph % (Auto) 13.8 L, [place] % (Auto) 6.1, Eos % (Auto) 1.9, Baso % (Auto) 0.3, Absolute Neuts (auto) 9.0 H, Absolute Lymphs (auto) 1.60, Nucleated RBC % 0 Radiography Diagnostic Testing: Radiology Impression Brain CT 07/09/22 22:18 IMPRESSION: No acute abnormal intracranial finding. Electronically Signed: Jesus Leung MD at 22:57 EST , Chest X-Ray 07/09/22 22:43 IMPRESSION: No radiographic evidence of acute cardiopulmonary disease. Electronically Signed: Jesus Leung MD at 22:53 EST , Echocardiogram 07/10/22 03:04 Interpretation Summary Moderate concentric left ventricular hypertrophy. The left ventricular ejection fraction is 65 %. Left ventricular systolic function is normal. The left atrium is severely enlarged. Mild (1+) mitral valve insufficiency. Calcified aortic root. Ordering Physician: Karen Aly Referring Physician: PETER CHOI Performed By: Linette Lange RCS Brain MRI 07/10/22 05:55 IMPRESSION: 1. No MRI evidence of acute or subacute ischemic infarct, intracranial mass or acute intracranial abnormality. 2. Chronic white matter ischemic changes in both cerebral hemispheres. 3. 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 4. Possible polyp in the right nasal vault. This is unchanged. Endoscopy will be helpful for further clarification. 5. No significant interval change when compared to 12/28/2021. Electronically Signed: Hero Hayes MD at 11:50 EST , Rhythm Strip Rhythm Strip: Sinus Rhythm Physical Exam Const alert and no apparent distress Constitutional Narrative: Oriented HEENT normocephalic and head/scalp atraumatic Eyes Eyes Narrative: EOM grossly intact, anicteric Neck supple Resp normal respiratory effort and clear to auscultation bilaterally Cardio regular rate and regular rhythm GI soft to palpation, non-tender and non-distended Extremity Extremity Narrative: No edema appreciated Neuro moves all extremities Neuro Narrative: No overt focal deficits appreciated Psych Psych Narrative: Cooperative Assessment & Plan Assessment/Plan (1) NSTEMI, initial episode of care: PLAN: Plan #NSTEMI, likely type II Troponins elevated at 210 on admission and trended down to 103 Echo 07/10 with moderate concentric left ventricular hypertrophy, EF 65%, left atrium severely enlarged, mild mitral valve insufficiency and a calcified aortic root. Evaluated by cardiology, stress test in the a.m. Continue aspirin, beta-ihsan, losartan, statin #History of pulmonary embolism On Coumadin INR on admission 3.5 Continue to monitor INR Coumadin was held pending cardiology assessment INR 2.9 #Generalized weakness Reportedly tripped and fell when he went out of his house and had denied loss of consciousness but was weak PT/OT Some possible confusion had been reported as well with unclear etiology, CT of the head unremarkable and patient back at baseline MRI with some chronic white matter changes but no acute change, or any further symptoms we will pursue further work-up but at this time patient stable #Type 2 diabetes mellitus Home oral hypoglycemics held, continue home insulin regimen #Valvular heart disease Patient with status post aortic valve repair/replacement 2006, 03/26/2018 echocardiogram with EF 65%, stage I diastolic dysfunction, mild MVI, mild TVI, RVSP 30 mmHg, trivial aortic insufficiency with at that time stable appearing bioprosthetic aortic valve apparatus. Echo 07/10 with moderate concentric left ventricular hypertrophy, EF 65%, left atrium severely enlarged, mild mitral valve insufficiency and a calcified aortic root. #CKD stage III unclear subtype Receiving hydration Continue to monitor kidney function #DVT ppx: Therapeutic on Coumadin Yisel Rendon MD Charges/Coding Visit Charges Inpatient E&M: 85665 Subs Hosp L2
[2022-07-10 12:07] LABS: International Normalized Ratio 2.9; Prothrombin Time (Protime)PT. 29.9 SECONDS (11.7-14.9)
[2022-07-10 12:50] LABS: Bedside Glucose 106 mg/dL (74-106)
[2022-07-10] MEDS: Insulin Glargine-YFGN 100 UNIT/ML Pen 24 UNIT SC (13:04)
[2022-07-10] MEDS: 0.9% Saline Lock 10 ML Syringe IV (15:19)
[2022-07-10 17:15] LABS: Bedside Glucose 105 mg/dL (74-106)
[2022-07-10] MEDS: Tamsulosin HCl 0.4 MG Capsule PO (21:00)
[2022-07-10] MEDS: Atorvastatin Calcium 40 MG Tablet PO (21:00)
[2022-07-10 22:36] LABS: Bedside Glucose 98 mg/dL (74-106)
[2022-07-11] VITALS (11 sets, daily range): BP systolic 114–143; BP diastolic 65–78; PULSE 60–93; RESP 16–18; TEMP 36.5–36.8; O2SAT 93–100
[2022-07-11] MEDS: Losartan Potassium 50 MG Tablet PO (05:57)
[2022-07-11] MEDS: Aspirin E.C. 81 MG Tablet PO (05:57)
[2022-07-11 06:55] LABS: Bedside Glucose 94 mg/dL (74-106)
[2022-07-11 07:09] LABS: Absolute Lymphocyte Count 1.98 X10^3/uL (0.83-4.51); Absolute Neutrophil Count 5.2 X10^3/uL (2.0-7.7); Basophil# 0.05 X10^3/uL; Basophil% 0.6 % (0-1); Eosinophil# 0.34 X10^3/uL; Eosinophils% 4.1 % (0-5); Hematocrit 39.3 % (40-54); Hemoglobin 12.7 g/dL (13.0-16.5); Lymphocyte # 1.98 X10^3/ul (0.83-4.51); Lymphocyte % 24.1 % (19-41); Mean Corp Hgb Conc 32.3 g/dL (32-36); Mean Corpuscular Hgb 26.7 pg (27.0-32.0); Mean Corpuscular Volume 82.7 fL (80-94); Mean Platelet Vol. 9.2 fl (6.2-12.0); Monocyte# 0.56 X10^3/uL; Monocyte% 6.8 % (0-10); NRBC Flagged by Analyzer 0 % (0-5); Neutrophil # 5.22 X10^3/uL (2.7-7.7); Neutrophil % 63.5 % (47-70); Platelet Count 200 K/mm3 (150-450); RBC Distribution Width CV 14.6 % (11.6-14.6); Red Blood Count 4.75 M/mm3 (4.6-6.2); White Blood Count 8.2 K/mm3 (4.4-11.0)
[2022-07-11 08:16] LABS: AST(SGOT) 23 U/L (15-37); Alanine Aminotransfer ALT/SGPT 22 U/L (16-61); Alkaline Phosphatase 106 U/L (45-117); Anion Gap 8 (5-15); BUN 20 mg/dL (7-18); BUN/Creat Ratio 17.7 RATIO (10-20); Calcium,Total 8.6 mg/dL (8.5-10.1); Chloride 105 mmol/L (98-107); Cholesterol 102 mg/dL (200); Creatinine, Serum 1.13 mg/dL (0.70-1.30); EST Glomerular Filtration Rate 67 mL/min (>60); Est Glom Filt Rate - Afr Amer 81 mL/min (>60); Estimated Creatinine Clearance 64.82 ml/min; Globulin 2.9 g/dL (2.2-4.2); Glucose 103 mg/dL (74-106); High Density Lipoprotein 36 mg/dL; Magnesium 1.9 mg/dL (1.6-2.6); Potassium 3.5 mmol/L (3.5-5.1); Protein, Total 5.9 g/dL (6.4-8.2); Sodium Level 138 mmol/L (136-145); Triglycerides 124 mg/dL; Very Low Density Lipoprotein 25 mg/dL (5-40)
--- NOTE | 2022-07-11 08:24 | PN.HOSP_ITS ---
Subjective Subjective Feeling somewhat better today, not complaining of chest pain or shortness of breath at this time. Objective Data Objective Data Vital Signs: Vital Signs Temp Pulse Resp BP Pulse Ox O2 Del Method O2 Flow Rate 97.8 F 60 18 143/78 H 96 Room Air 97 07/11/22 05:55 07/11/22 07:00 07/11/22 05:55 07/11/22 05:55 07/11/22 05:55 07/11/22 05:55 07/09/22 21:17 Oxygen Flow Rate (L/min) 97 Oxygen Delivery Method Room Air Weight: 114.6 kg Body Mass Index (BMI) 33.6 Intake & Output: Intake and Output for Last 24 Hours 07/09/22 07/10/22 07/11/22 23:59 23:59 23:59 Intake Total 1400 / 1400 Balance 1400 / 1400 Lab / Micro Data Result Diagrams: 07/11/22 06:09 07/11/22 06:09 Labs: Laboratory Results - last 24 hr 07/10/22 11:42: WBC 11.6 H, RBC 5.19, Hgb 14.2, Hct 42.7, MCV 82.3, MCH 27.4, MCHC 33.3, RDW Std Deviation 44.1 H, RDW Coeff of Nathaniel 14.7 H, Plt Count 230, MPV 9.0, Immature Gran % (Auto) 0.900, Neut % (Auto) 77.0 H, Lymph % (Auto) 13.8 L, [place] % (Auto) 6.1, Eos % (Auto) 1.9, Baso % (Auto) 0.3, Absolute Neuts (auto) 9.0 H, Absolute Lymphs (auto) 1.60, Nucleated RBC % 0 07/10/22 11:42: PT 29.9 H, INR 2.9 07/10/22 12:28: POC Glucose 106 07/10/22 16:51: POC Glucose 105 07/10/22 20:59: POC Glucose 98 07/11/22 06:09: Sodium 138, Potassium 3.5, Chloride 105, Carbon Dioxide 25.0, Anion Gap 8, BUN 20 H, Creatinine 1.13, Estim Creat Clear Calc 64.82, Est GFR (MDRD) Af Amer 81, Est GFR (MDRD) Non-Af 67, BUN/Creatinine Ratio 17.7, Glucose 103, Calcium 8.6, Magnesium 1.9, Total Bilirubin 0.90, AST 23, ALT 22, Alkaline Phosphatase 106, Total Protein 5.9 L, Albumin 3.0 L, Globulin 2.9, Albumin/Globulin Ratio 1.0, Triglycerides 124, Cholesterol 102, LDL Cholesterol 41, VLDL Cholesterol 25, HDL Cholesterol 36 L 07/11/22 06:09: WBC 8.2, RBC 4.75, Hgb 12.7 L, Hct 39.3 L, MCV 82.7, MCH 26.7 L, MCHC 32.3, RDW Std Deviation 44.0 H, RDW Coeff of Nathaniel 14.6, Plt Count 200, MPV 9.2, Immature Gran % (Auto) 0.900, Neut % (Auto) 63.5, Lymph % (Auto) 24.1, [place] % (Auto) 6.8, Eos % (Auto) 4.1, Baso % (Auto) 0.6, Absolute Neuts (auto) 5.2, Absolute Lymphs (auto) 1.98, Nucleated RBC % 0 07/11/22 06:37: POC Glucose 94 Radiography Diagnostic Testing: Radiology Impression Echocardiogram 07/10/22 03:04 Interpretation Summary Moderate concentric left ventricular hypertrophy. The left ventricular ejection fraction is 65 %. Left ventricular systolic function is normal. The left atrium is severely enlarged. Mild (1+) mitral valve insufficiency. Calcified aortic root. Ordering Physician: Karen Aly Referring Physician: PETER CHOI Performed By: Linette Lange RCS Brain MRI 07/10/22 05:55 IMPRESSION: 1. No MRI evidence of acute or subacute ischemic infarct, intracranial mass or acute intracranial abnormality. 2. Chronic white matter ischemic changes in both cerebral hemispheres. 3. 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 4. Possible polyp in the right nasal vault. This is unchanged. Endoscopy will be helpful for further clarification. 5. No significant interval change when compared to 12/28/2021. Electronically Signed: Hero Hayes MD at 11:50 EST , Rhythm Strip Rhythm Strip: Sinus Rhythm Physical Exam Const alert and no apparent distress Constitutional Narrative: Oriented HEENT normocephalic and head/scalp atraumatic Eyes Eyes Narrative: EOM grossly intact, anicteric Neck supple Resp normal respiratory effort and clear to auscultation bilaterally Cardio regular rate and regular rhythm GI soft to palpation, non-tender and non-distended Extremity Extremity Narrative: No edema appreciated Neuro moves all extremities Neuro Narrative: No overt focal deficits appreciated Psych Psych Narrative: Cooperative Assessment & Plan Assessment/Plan (1) NSTEMI, initial episode of care: PLAN: Plan #NSTEMI, likely type II Troponins elevated at 210 on admission and trended down to 103 Echo 07/10 with moderate concentric left ventricular hypertrophy, EF 65%, left atrium severely enlarged, mild mitral valve insufficiency and a calcified aortic root. Evaluated by cardiology, stress test in the a.m. Continue aspirin, beta-ihsan, losartan, statin 07/11: Stress test today, further dispo pending results. #History of pulmonary embolism On Coumadin INR on admission 3.5 Continue to monitor INR Coumadin was held pending cardiology assessment INR therapeutic #Generalized weakness Reportedly tripped and fell when he went out of his house and had denied loss of consciousness but was weak PT/OT Some possible confusion had been reported as well with unclear etiology, CT of the head unremarkable and patient back at baseline MRI with some chronic white matter changes but no acute change, or any further symptoms we will pursue further work-up but at this time patient stable 07/11: Physical therapy feels he may be able to go home with help. #Type 2 diabetes mellitus Home oral hypoglycemics held, continue home insulin regimen 07/11: Given n.p.o. status and glucose in the 90s we will cut long-acting in farrar lf this morning. Once resuming diet can likely be increased to home level #Valvular heart disease Patient with status post aortic valve repair/replacement 2006, 03/26/2018 echocardiogram with EF 65%, stage I diastolic dysfunction, mild MVI, mild TVI, RVSP 30 mmHg, trivial aortic insufficiency with at that time stable appearing bioprosthetic aortic valve apparatus. Echo 07/10 with moderate concentric left ventricular hypertrophy, EF 65%, left atrium severely enlarged, mild mitral valve insufficiency and a calcified aortic root. #CKD stage III unclear subtype Receiving hydration Continue to monitor kidney function #DVT ppx: Therapeutic on Coumadin Yisel Rendon MD Charges/Coding Visit Charges Inpatient E&M: 21492 Subs Hosp L2
--- NOTE | 2022-07-11 08:35 | NURSING ---
Emergency documentation starting now.
[2022-07-11 09:34] LABS: International Normalized Ratio 2.1; Prothrombin Time (Protime)PT. 23.6 SECONDS (11.7-14.9)
--- NOTE | 2022-07-11 10:20 | CASEMGMT ---
Addendum entered by Shirley Mcmullen 07/11/22 14:12: [facility] is able to accept patient with start of care Saturday. JACEY MASON updated patient. Patient had no further questions or concerns at this time. Addendum entered by Shirley Mcmullen 07/11/22 14:00: JACEY MASON returned to room to discuss HHC. Patient is agreeable to HHC and [facility]. JACEY MASON called Karly and made referral to [facility], awaiting acceptance. CM will continue to follow this patient and plan for a safe discharge. Original Note: JACEY MASON reviewed therapy notes and they are recommending HHC. JACEY MASON in to discuss HHC with patient. Patient state he is not sure, encouraged patient to discuss with . A list of C providers including quality and resource use data and consistent with the patient?s preferred geographical region, medical needs, and insurance network were provided from the [employer] Guide. JACEY MASON will continue to follow this patient and plan for a safe discharge.
[2022-07-11] MEDS: Metoprolol(XL)Succ 200 MG Tablet PO (10:58)
[2022-07-11] MEDS: Insulin Glargine-YFGN 100 UNIT/ML Pen 12 UNIT SC (10:59)
--- NOTE | 2022-07-11 11:29 | STRESSREP ---
Stress Test Report Date: 07/11/2022 Procedure: Pharmacologic stress nuclear imaging study Indications: NSTEMI Consent: Per the patient Procedure: The patient underwent pharmacologic (Regadenoson 0.4mg ) evaluation with a peak heart rate of 111 beats per minute (70s%predicted maximal heart rate) and a peak blood pressure of 132/60 mmHg. The baseline ECG demonstrated normal sinus rhythm with right bundle branch block. The peak pharmacologic ECG demonstrated no significant changes. Occasional PAC was noted. [There was no complaint of chest discomfort during pharmacologic infusion or recovery]. The patient was injected with 15 millicuries of technetium 99m Cardiolite and subsequently rest SPECT Cardiolite nuclear imaging was obtained in the horizontal long, vertical long, and short axis views. The patient underwent pharmacologic (Regadenoson) evaluation. The patient was injected with 44.5 millicuries of technetium 99m Cardiolite and subsequently stress SPECT Cardiolite nuclear imaging was obtained in the horizontal long, vertical long, and short axis views. A gated Cardiolite study at peak stress was obtained. The examination was stopped secondary to completion of protocol. Rest and stress SPECT Cardiolite nuclear imaging status post realignment, normalization, and attenuation correction demonstrate no fixed or reversible defects. [There is end systolic thickening and brightening]. [The gated Cardiolite study demonstrates myocardial thickening and inward wall motion]. The reported LVEF is 74%. Impression: 1. Pharmacologic (Regadenoson) evaluation 2. Peak pharmacologic ECG with no ischemic changes. 3. Rare PACs noted. 5. No fixed or reversible perfusion defects. 6. The gated Cardiolite study reports an LVEF of 74%. This note was generated with Lookbackation software. It may contain incorrect words, spelling, and punctuation that were not noted in checking the note before signing.
--- NOTE | 2022-07-11 11:33 | PN.CARD_ITS ---
Subjective Subjective Denies any complaint Objective Data Vital Signs: Vital Signs Temp Pulse Resp BP Pulse Ox O2 Del Method O2 Flow Rate 97.7 F L 69 17 143/71 H 98 Room Air 97 07/11/22 10:56 07/11/22 10:58 07/11/22 10:56 07/11/22 10:56 07/11/22 10:56 07/11/22 10:56 07/09/22 21:17 Oxygen Flow Rate (L/min) 97 Oxygen Delivery Method Room Air Weight: 252 lb 10.396 oz Body Mass Index (BMI) 33.6 Intake & Output: Intake and Output for Last 24 Hours 07/09/22 07/10/22 07/11/22 23:59 23:59 23:59 Intake Total 1400 / 1400 Balance 1400 / 1400 Lab / Micro Data Result Diagrams: 07/11/22 06:09 07/11/22 06:09 Labs: Laboratory Results - last 24 hr 07/10/22 11:42: WBC 11.6 H, RBC 5.19, Hgb 14.2, Hct 42.7, MCV 82.3, MCH 27.4, MCHC 33.3, RDW Std Deviation 44.1 H, RDW Coeff of Nathaniel 14.7 H, Plt Count 230, MPV 9.0, Immature Gran % (Auto) 0.900, Neut % (Auto) 77.0 H, Lymph % (Auto) 13.8 L, [place] % (Auto) 6.1, Eos % (Auto) 1.9, Baso % (Auto) 0.3, Absolute Neuts (auto) 9.0 H, Absolute Lymphs (auto) 1.60, Nucleated RBC % 0 07/10/22 11:42: PT 29.9 H, INR 2.9 07/10/22 12:28: POC Glucose 106 07/10/22 16:51: POC Glucose 105 07/10/22 20:59: POC Glucose 98 07/11/22 06:09: Sodium 138, Potassium 3.5, Chloride 105, Carbon Dioxide 25.0, Anion Gap 8, BUN 20 H, Creatinine 1.13, Estim Creat Clear Calc 64.82, Est GFR (MDRD) Af Amer 81, Est GFR (MDRD) Non-Af 67, BUN/Creatinine Ratio 17.7, Glucose 103, Calcium 8.6, Magnesium 1.9, Total Bilirubin 0.90, AST 23, ALT 22, Alkaline Phosphatase 106, Total Protein 5.9 L, Albumin 3.0 L, Globulin 2.9, Albumin/Globulin Ratio 1.0, Triglycerides 124, Cholesterol 102, LDL Cholesterol 41, VLDL Cholesterol 25, HDL Cholesterol 36 L 07/11/22 06:09: WBC 8.2, RBC 4.75, Hgb 12.7 L, Hct 39.3 L, MCV 82.7, MCH 26.7 L, MCHC 32.3, RDW Std Deviation 44.0 H, RDW Coeff of Nathaniel 14.6, Plt Count 200, MPV 9.2, Immature Gran % (Auto) 0.900, Neut % (Auto) 63.5, Lymph % (Auto) 24.1, [place] % (Auto) 6.8, Eos % (Auto) 4.1, Baso % (Auto) 0.6, Absolute Neuts (auto) 5.2, Absolute Lymphs (auto) 1.98, Nucleated RBC % 0 07/11/22 06:09: PT 23.6 H, INR 2.1 07/11/22 06:37: POC Glucose 94 Rhythm Strip Rhythm Strip: Sinus Rhythm Cardiology Labs/Tests 07/10/22 11:42: WBC 11.6 H, RBC 5.19, Hgb 14.2, Hct 42.7, MCV 82.3, MCH 27.4, MCHC 33.3, Plt Count 230, MPV 9.0, Immature Gran % (Auto) 0.900, Neut % (Auto) 77.0 H, Lymph % (Auto) 13.8 L, [place] % (Auto) 6.1, Eos % (Auto) 1.9, Baso % (Auto) 0.3, Absolute Neuts (auto) 9.0 H, Nucleated RBC % 0 07/10/22 11:42: PT 29.9 H, INR 2.9 07/11/22 06:09: Sodium 138, Potassium 3.5, Chloride 105, Carbon Dioxide 25.0, Anion Gap 8, BUN 20 H, Creatinine 1.13, Est GFR (MDRD) Af Amer 81, Est GFR (MDRD) Non-Af 67, BUN/Creatinine Ratio 17.7, Glucose 103, Calcium 8.6, Magnesium 1.9, Total Bilirubin 0.90, Triglycerides 124, Cholesterol 102, LDL Cholesterol 41, VLDL Cholesterol 25, HDL Cholesterol 36 L 07/11/22 06:09: WBC 8.2, RBC 4.75, Hgb 12.7 L, Hct 39.3 L, MCV 82.7, MCH 26.7 L, MCHC 32.3, Plt Count 200, MPV 9.2, Immature Gran % (Auto) 0.900, Neut % (Auto) 63.5, Lymph % (Auto) 24.1, [place] % (Auto) 6.8, Eos % (Auto) 4.1, Baso % (Auto) 0.6, Absolute Neuts (auto) 5.2, Nucleated RBC % 0 07/11/22 06:09: PT 23.6 H, INR 2.1 Rhythm: EKG: ECHO: Stress Test: Cardiac Cath: PCI: CT Surgery: Holter monitor: EPS: PPM: CXR: Chest CT Scan: Radiography Diagnostic Testing: Radiology Impression Brain MRI 07/10/22 05:55 IMPRESSION: 1. No MRI evidence of acute or subacute ischemic infarct, intracranial mass or acute intracranial abnormality. 2. Chronic white matter ischemic changes in both cerebral hemispheres. 3. 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 4. Possible polyp in the right nasal vault. This is unchanged. Endoscopy will be helpful for further clarification. 5. No significant interval change when compared to 12/28/2021. Electronically Signed: Hero Hayes MD at 11:50 EST , Physical Exam Narrative Comfortable. No distress. Heart sounds 1 and 2 are normal. Chest clear to auscultation bilaterally. Alert oriented x3. Assessment & Plan Assessment/Plan (1) NSTEMI, initial episode of care: PLAN: Normal Lexiscan stress Myoview. Normal left ventricular systolic function. Likely type II. No further cardiac work-up. Continue aspirin. Add low-dose amlodipine. (2) History of pulmonary embolism: PLAN: On warfarin. (3) HTN (hypertension): PLAN: Controlled. (4) History of thoracic aortic aneurysm repair: PLAN: Plan May discharge home from a cardiac standpoint. Continue following with own special 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.
[2022-07-11 12:30] LABS: Bedside Glucose 149 mg/dL (74-106)
[2022-07-11] MEDS: amLODIPine 2.5 MG Tablet PO (12:59)
--- NOTE | 2022-07-11 15:44 | PCM.DC ---
Discharge Instructions Diet Discharge Diet: No restrictions Activity Discharge Activity: Return to Normal Activity Follow Up Care Test Results: Test results from this visit will be discussed in further detail at your follow-up appointment, if applicable. Discharge Plan Admission Admit Date/Time: 07/09/22 23:56 Primary Reason for Your Visit: Fall and unsteadiness Attending Provider: Yisel Rendon Primary Care Provider: Luis Caldera Consulting Providers: Lizzeth Riggs ; Karen Aly Instructions Patient Instructions: Diabetes and Heart Disease, Diabetes and High Blood Pressure Additional Instructions / Restrictions: *Please take this with you to your next doctors appointment* ?Your stress test was normal and your MRI did not show any acute stroke. ? Your glucose was well within normal limits on only half your dose (12 units) of insulin glargine, advise you continue this dose at home along with the other medications and discuss with your prescribing physician as episodes of low blood sugar could contribute to weakness and falls. Please continue to check your glucose at home ?Please continue Coumadin and monitoring your INR as previously scheduled. Your INR was within range during your admission so your dose was not changed ?Cardiology recommended starting amlodipine 2.5 mg daily, prescription for this will be sent to your preferred pharmacy on file ? You can continue to follow with your own chef instructor, if you are not presently following with one you can call the number provided for our local cardiology office to schedule hospital follow-up appointment and establish care. -Please call your primary care provider's office upon discharge to schedule a hospital follow up within 1 week. -For any concerning signs or symptoms please call 911 or proceed to the nearest emergency department Discharge Orders/Prescriptions Prescriptions: New amlodipine 2.5 mg Tablet 2.5 mg PO DAILY 30 Days Qty: 30 0RF aspirin 81 mg Tablet,Delayed Release (Dr/Ec) 81 mg PO BREAKFAST 30 Days Qty: 30 0RF Continued metoprolol succinate 200 MG tablet 200 mg PO DAILY Label Comments: HYPERTENSION losartan 50 MG tablet 50 mg PO DAILY metformin 500 MG tablet,ER mirela.retention 24 hr 1,000 mg PO BID insulin lispro [Humalog KwikPen Insulin] 100 UNIT/ML insulin pen See Protocol SQ 4X/DAY Protocol: 6. Sliding Scale Insulin Custom Condition: mg/dl range Dose/Route: Number of Units Condition: 100-200 Dose/Route: 3 Condition: 201-250 Dose/Route: 5 Condition: 251-300 Dose/Route: 8 Condition: 301-350 Dose/Route: 12 Condition: 351-400 Dose/Route: 15 Protocol Text: Custom Sliding Scale Trulicity 1.5 MG/0.5 ML pen injector 1.5 mg SQ GARCIA Rx Instructions: Saturday atorvastatin 40 MG tablet 40 mg PO QHS warfarin [Jantoven] 5 MG tablet 7.5 mg PO SUTUTHFR Label Comments: blood thinner tamsulosin 0.4 mg capsule 0.4 mg PO QHS Label Comments: TAKE 1 CAPSULE BY MOUTH EVERYDAY AT BEDTIME warfarin 5 mg tablet 10 mg PO MOWE Label Comments: 10 MG SATURDAY AND SATURDAY, 7.5 MG ALL OTHER DAYS. PATIENT HAS INR DRAWN BI-WEEKLY. ergocalciferol (vitamin D2) 1,250 mcg (50,000 unit) capsule 1,250 mcg PO GARCIA Label Comments: TAKE 1 CAPSULE BY MOUTH ONE TIME A WEEK. Changed insulin glargine [Lantus Solostar U-100 Insulin] 100 UNITS/ML insulin pen 12 unit subcut DAILY Qty: 15 0RF Referrals / Follow Up: Olga Lidia Rasheed MD [Med Staff - Active Staff] - See Referral Note (If you do not presently have a chef instructor you can establish with her local cardiology office. You can call the number to schedule hospital follow-up appointment or establish care.) Luis Caldera MD [Primary Care Provider] - Within 1 Week Disposition Disposition (needs filled in before D/C Order can be placed): Home Health Service
--- NOTE | 2022-07-11 16:02 | DS.PCM_ITS ---
Providers Date of Admission: 07/09/22 Date of Discharge: 07/11/22 Primary Care Physician: Dr. Luis Caldera MD Consultations 07/10/22 03:04 Consult: Cardiology Routine Consulting Provider: Lizzeth Riggs Reason for Consult: NSTEMI EMERGENT Consult: No MD Notified: Yes Date Notified: 07/10/22 Time Notified: 02:10 Method of Notification: ED Physician Initiated Reason For Visit: NSTEMI, ? TIA/? SYNCOPE Diagnosis Discharge Diagnosis (1) NSTEMI, initial episode of care: Status: Acute Code(s): I21.4 - Non-ST elevation (NSTEMI) myocardial infarction (2) History of pulmonary embolism: Status: Acute Code(s): Z86.711 - Personal history of pulmonary embolism (3) HTN (hypertension): Status: Chronic Code(s): I10 - Essential (primary) hypertension (4) History of thoracic aortic aneurysm repair: Status: Acute Code(s): Z98.890 - Other specified postprocedural states; Z86.79 - Personal history of other diseases of the circulatory system Plan #NSTEMI, likely type II #History of pulmonary embolism #Generalized weakness #Type 2 diabetes mellitus #Valvular heart disease #CKD stage III unclear subtype Medications at Discharge Home Medications metoprolol succinate 200 mg tablet,extended release 24 hr 200 mg PO DAILY blood pressure 09/16/13 losartan 50 mg tablet 50 mg PO DAILY blood pressure 03/24/18 metformin 500 mg 24 hr tablet,extended release 1,000 mg PO BID diabetes 03/24/18 atorvastatin 40 mg tablet 40 mg PO QHS cholesterol 05/22/18 dulaglutide 1.5 mg/0.5 mL subcutaneous pen injector (Trulicity) 1.5 mg SQ GARCIA diabetes 05/22/18 insulin lispro 100 unit/mL subcutaneous pen (Humalog KwikPen (U-100) Insulin) See Protocol SQ 4X/DAY diabetes 05/22/18 warfarin 5 mg tablet (Jantoven) 7.5 mg PO SUTUTHFRSA anticoagulant 05/22/18 ergocalciferol (vitamin D2) 1,250 mcg (50,000 unit) capsule 1,250 mcg PO GARCIA SUPPLEMENT 03/02/22 tamsulosin 0.4 mg capsule 0.4 mg PO QHS PROSTATE 03/02/22 warfarin 5 mg tablet 10 mg PO MOWE 03/02/22 amlodipine 2.5 mg tablet 2.5 mg PO DAILY 30 days #30 tabs 07/11/22 aspirin 81 mg tablet,delayed release 81 mg PO BREAKFAST 30 days #30 tabs 07/11/22 insulin glargine 100 unit/mL (3 mL) subcutaneous pen (Lantus Solostar U-100 Insulin) 12 unit (0.12 mL) subcut DAILY diabetes #15 mL 07/11/22 Hospital Course Procedures Transthoracic echo and - (Stress test) Summary of Care Provided Minutes Spent on Discharge: 35 Hospital Course: 76-year-old male history of aortic aneurysm, valvular heart disease, hypertension, DVT and PE, GI bleed, history of right lower extremity osteomyelitis, type 2 diabetes who presented to [facility] ED on 07/09 after walking out to his storage shed and after being gone for a while his looked out and saw him in the snow. Son helped him up but he was unsteady on his feet and reportedly mental status is at baseline but had been somewhat confused earlier in the day. He had an elevated troponin and had cardiac work- up, echo reviewed, stress test unremarkable. In regards to the possible fall and confusion, he was given a small dose of his insulin while he was here and his other hypoglycemics were held and his glucose was still in the 90s. Concerned that there could have been an aspect of hypoglycemia and advised on discharge to cut long-acting insulin down to 12 and monitor blood sugars. Co umadin continued. On the day of discharge she was feeling well, no chest pain, no shortness of breath, did well with physical therapy and they recommended could go home with help. Agreeable to home health. Discharged home in stable condition. *Please take this with you to your next doctors appointment* ?Your stress test was normal and your MRI did not show any acute stroke. ? Your glucose was well within normal limits on only half your dose (12 units) of insulin glargine, advise you continue this dose at home along with the other medications and discuss with your prescribing physician as episodes of low blood sugar could contribute to weakness and falls.? Please continue to check your glucose at home ?Please continue Coumadin and monitoring your INR as previously scheduled.? Your INR was within range during your admission so your dose was not changed ?Cardiology recommended starting amlodipine 2.5 mg daily, prescription for this will be sent to your preferred pharmacy on file ? You can continue to follow with your own electrical and instrument engineer, if you are not presentl y following with one you can call the number provided for our local cardiology office to schedule hospital follow-up appointment and establish care. -Please call your primary care provider's office upon discharge to schedule a hospital follow up within 1 week. -For any concerning signs or symptoms please call 911 or proceed to the nearest emergency department Physical Exam Const alert and no apparent distress Constitutional Narrative: Oriented HEENT normocephalic and head/scalp atraumatic Eyes Eyes Narrative: EOM grossly intact, anicteric Neck supple Resp normal respiratory effort and clear to auscultation bilaterally Cardio regular rate and regular rhythm GI soft to palpation, non-tender and non-distended Extremity Extremity Narrative: No edema appreciated Neuro moves all extremities Neuro Narrative: No overt focal deficits appreciated Psych Psych Narrative: Cooperative Weight / BMI Weight Weight: 114.6 kg Body Mass Index (BMI) 33.6 ABG / Lab / Microbiology Data Result Diagrams: 07/11/22 06:09 07/11/22 06:09 Laboratory: Laboratory Results - last 24 hr 07/10/22 16:51: POC Glucose 105 07/10/22 20:59: POC Glucose 98 07/11/22 06:09: Sodium 138, Potassium 3.5, Chloride 105, Carbon Dioxide 25.0, Anion Gap 8, BUN 20 H, Creatinine 1.13, Estim Creat Clear Calc 64.82, Est GFR (MDRD) Af Amer 81, Est GFR (MDRD) Non-Af 67, BUN/Creatinine Ratio 17.7, Glucose 103, Calcium 8.6, Magnesium 1.9, Total Bilirubin 0.90, AST 23, ALT 22, Alkaline Phosphatase 106, Total Protein 5.9 L, Albumin 3.0 L, Globulin 2.9, Albumin/Globulin Ratio 1.0, Triglycerides 124, Cholesterol 102, LDL Cholesterol 41, VLDL Cholesterol 25, HDL Cholesterol 36 L 07/11/22 06:09: WBC 8.2, RBC 4.75, Hgb 12.7 L, Hct 39.3 L, MCV 82.7, MCH 26.7 L, MCHC 32.3, RDW Std Deviation 44.0 H, RDW Coeff of Nathaniel 14.6, Plt Count 200, MPV 9.2, Immature Gran % (Auto) 0.900, Neut % (Auto) 63.5, Lymph % (Auto) 24.1, [place] % (Auto) 6.8, Eos % (Auto) 4.1, Baso % (Auto) 0.6, Absolute Neuts (auto) 5.2, Absolute Lymphs (auto) 1.98, Nucleated RBC % 0 07/11/22 06:09: PT 23.6 H, INR 2.1 07/11/22 06:37: POC Glucose 94 07/11/22 12:09: POC Glucose 149 H D/C Instructions Discharge Diet: No restrictions Meaningful Use Info Meaningful Use Diagnoses (Choose all that apply): None applicable Discharge Plan Admission Admit Date/Time: 07/09/22 23:56 Primary Reason for Your Visit: Fall and unsteadiness Attending Provider: Yisel Rendon Primary Care Provider: Luis Caldera Consulting Providers: Lizzeth Riggs ; Karen Aly Instructions Patient Instructions: Diabetes and Heart Disease, Diabetes and High Blood Pressure Additional Instructions / Restrictions: *Please take this with you to your next doctors appointment* ?Your stress test was normal and your MRI did not show any acute stroke. ? Your glucose was well within normal limits on only half your dose (12 units) of insulin glargine, advise you continue this dose at home along with the other medications and discuss with your prescribing physician as episodes of low blood sugar could contribute to weakness and falls. Please continue to check your glucose at home ?Please continue Coumadin and monitoring your INR as previously scheduled. Your INR was within range during your admission so your dose was not changed ?Cardiology recommended starting amlodipine 2.5 mg daily, prescription for this will be sent to your preferred pharmacy on file ? You can continue to follow with your own electrical and instrument engineer, if you are not presently following with one you can call the number provided for our local cardiology office to schedule hospital follow-up appointment and establish care. -Please call your primary care provider's office upon discharge to schedule a hospital follow up within 1 week. -For any concerning signs or symptoms please call 911 or proceed to the nearest emergency department Patient Problems: Altered Health Status related to Hospitalization Patient Goals: *Optimal Level of Health *Keep Appointments *Medication Compliance *Remain Safe Discharge Orders/Prescriptions Prescriptions: New amlodipine 2.5 mg Tablet 2.5 mg PO DAILY 30 Days Qty: 30 0RF aspirin 81 mg Tablet,Delayed Release (Dr/Ec) 81 mg PO BREAKFAST 30 Days Qty: 30 0RF Continued metoprolol succinate 200 MG tablet 200 mg PO DAILY Label Comments: HYPERTENSION losartan 50 MG tablet 50 mg PO DAILY metformin 500 MG tablet,ER mirela.retention 24 hr 1,000 mg PO BID insulin lispro [Humalog KwikPen Insulin] 100 UNIT/ML insulin pen See Protocol SQ 4X/DAY Protocol: 6. Sliding Scale Insulin Custom Condition: mg/dl range Dose/Route: Number of Units Condition: 100-200 Dose/Route: 3 Condition: 201-250 Dose/Route: 5 Condition: 251-300 Dose/Route: 8 Condition: 301-350 Dose/Route: 12 Condition: 351-400 Dose/Route: 15 Protocol Text: Custom Sliding Scale Trulicity 1.5 MG/0.5 ML pen injector 1.5 mg SQ GARCIA Rx Instructions: Saturday atorvastatin 40 MG tablet 40 mg PO QHS warfarin [Jantoven] 5 MG tablet 7.5 mg PO SUTUTHFR Label Comments: blood thinner tamsulosin 0.4 mg capsule 0.4 mg PO QHS Label Comments: TAKE 1 CAPSULE BY MOUTH EVERYDAY AT BEDTIME warfarin 5 mg tablet 10 mg PO MOWE Label Comments: 10 MG SATURDAY AND SATURDAY, 7.5 MG ALL OTHER DAYS. PATIENT HAS INR DRAWN BI- WEEKLY. ergocalciferol (vitamin D2) 1,250 mcg (50,000 unit) capsule 1,250 mcg PO GARCIA Label Comments: TAKE 1 CAPSULE BY MOUTH ONE TIME A WEEK. Changed insulin glargine [Lantus Solostar U-100 Insulin] 100 UNITS/ML insulin pen 12 unit subcut DAILY Qty: 15 0RF Referrals / Follow Up: Olga Lidia Rasheed MD [Med Staff - Active Staff] - See Referral Note (If you do not presently have a electrical and instrument engineer you can establish with her local cardiology office. You can call the number to schedule hospital follow-up appointment or establish care.) Luis Caldera MD [Primary Care Provider] - Within 1 Week Disposition Disposition (needs filled in before D/C Order can be placed): Home Health Service Charges/Coding Visit Charges Inpatient E&M: 92530 Disch Hosp
== END 2022-07-11 17:39 | disposition home health service (06) | DRG 316 ==
LOC: ED 21:57 → PCU 07-10 06:37
PROVIDERS: Admitting Provider Family Medicine; Emergency Provider Student in an Organized Health Care Education/Training Program; PCP Family Medicine; Visit Provider Internal Medicine
DX: I5A Non-ischemic myocardial injury (non-traumatic) (principal); E11.649 Type 2 diabetes mellitus with hypoglycemia without coma; S09.90XA Unspecified injury of head, initial encounter; E11.22 Type 2 diabetes mellitus with diabetic chronic kidney disease; E11.40 Type 2 diabetes mellitus with diabetic neuropathy, unspecified; Z79.4 Long term (current) use of insulin; N18.30 Chronic kidney disease, stage 3 unspecified; I12.9 Hypertensive chronic kidney disease with stage 1 through stage 4 chronic kidney disease, or unspecified chronic kidney disease; E78.5 Hyperlipidemia, unspecified; I34.0 Nonrheumatic mitral (valve) insufficiency; W18.09XA Striking against other object with subsequent fall, initial encounter; R41.0 Disorientation, unspecified; Y92.007 Garden or yard of unspecified non-institutional (private) residence as the place of occurrence of the external cause; Z86.16 Personal history of COVID-19; N40.0 Benign prostatic hyperplasia without lower urinary tract symptoms; E66.9 Obesity, unspecified; Z68.32 Body mass index [BMI] 32.0-32.9, adult; Z79.01 Long term (current) use of anticoagulants; Z79.82 Long term (current) use of aspirin; Z79.899 Other long term (current) drug therapy; Z86.711 Personal history of pulmonary embolism; Z95.3 Presence of xenogenic heart valve
CPT/HCPCS: 36415; 70450; 70551; 71045; 78452; 80048; 80053; 80061; 81001; 82962; 83735; 84443; 84484; 85025; 85610; 93005; 93017; 93306; 97162; 97166; 97530; 97535; 97802; 99284; A9500; J7030; A4216; J2785

== ENCOUNTER 2023-01-04 10:57 | Inpatient (IN) | payer MEDICARE, OTHER, SELFPAY ==
[2023-01-04] VITALS (10 sets, daily range): BP systolic 128–151; BP diastolic 63–98; PULSE 43–63; RESP 12–17; TEMP 36.1–36.6; O2SAT 97–99; BMI 30.4
--- NOTE | 2023-01-04 11:34 | CT_ITS ---
STUDY: CT BRAIN WITHOUT CONTRAST REASON FOR EXAM: Male, 77 years old. Confusion RADIATION DOSAGE (If Supplied By Facility): CTDIvol = ( 44.99 ) mGy, DLP = ( 846.73 ) mGycm TECHNIQUE: Transaxial CT imaging of the brain was performed without administration of intravenous contrast material. Individualized dose optimization techniques were used for this CT. COMPARISON: CT brain dated 07/09/2022 FINDINGS: PARENCHYMA: There is no acute bleed or infarct. There are stable chronic ischemic and atrophic changes. VENTRICLES: There is no hydrocephalus. MASTOID AIR CELLS AND PARANASAL SINUSES: There is mucosal hypertrophy in the right maxillary sinus. The visualized paranasal sinuses are otherwise clear. The mastoid air cells are clear. BONES: There is no skull fracture. SOFT TISSUES: The visualized soft tissues are within normal limits. CT/Brain/Head without Contrast IMPRESSION: Stable chronic ischemic and atrophic changes. No acute intracranial abnormality. Right maxillary sinusitis. Electronically Signed: Doron Reynolds MD at 12:27 EDT ,
--- NOTE | 2023-01-04 11:40 | EX.ED.DYSGE1 ---
HPI History of Present Illness Chief Complaint: Confusion Informant: patient and spouse/S.O. Onset/Context/Timing Onset: Weeks Context: Gradual Onset Narrative Narrative: Patient present secondary to confusion. states that she has noted increased confusion for the past 2 weeks or slightly more. He did have a fall from a treadmill 2 weeks ago but feels the confusion started before this. He denies pain or shortness of breath. No fever or chills. No urinary symptoms. Patient has had decreased appetite and decreased p.o. intake. does feel that he has lost weight. 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 Upper gastrointestinal bleed Ureterolithiasis Valvular heart disease Home Medications metoprolol succinate 200 mg tablet,extended release 24 hr 200 mg PO DAILY blood pressure 09/16/13 [History Last Taken 03/02/22] losartan 50 mg tablet 50 mg PO DAILY blood pressure 03/24/18 [History Last Taken 03/02/22] metformin 500 mg 24 hr tablet,extended release 1,000 mg PO BID diabetes 03/24/18 [History Last Taken 03/02/22] atorvastatin 40 mg tablet 40 mg PO QHS cholesterol 05/22/18 [History Last Taken 03/01/22] dulaglutide 1.5 mg/0.5 mL subcutaneous pen injector (Trulicity) 1.5 mg SQ GARCIA diabetes 05/22/18 [History Last Taken 02/25/22] insulin lispro 100 unit/mL subcutaneous pen (Humalog KwikPen (U-100) Insulin) See Protocol SQ 4X/DAY diabetes 05/22/18 [History Last Taken 03/02/22] warfarin 5 mg tablet (Jantoven) 7.5 mg PO SUTUTHFRSA anticoagulant 05/22/18 [History Last Taken 03/01/22] ergocalciferol (vitamin D2) 1,250 mcg (50,000 unit) capsule 1,250 mcg PO GARCIA SUPPLEMENT 03/02/22 [History Last Taken 02/25/22] tamsulosin 0.4 mg capsule 0.4 mg PO QHS PROSTATE 03/02/22 [History Last Taken 03/01/22] warfarin 5 mg tablet 10 mg PO MOWE 03/02/22 [History Last Taken 02/28/22] amlodipine 2.5 mg tablet 2.5 mg PO DAILY 30 days #30 tabs 07/11/22 [Rx Last Taken Unknown] aspirin 81 mg tablet,delayed release 81 mg PO BREAKFAST 30 days #30 tabs 07/11/22 [Rx Last Taken Unknown] insulin glargine 100 unit/mL (3 mL) subcutaneous pen (Lantus Solostar U-100 Insulin) 12 unit (0.12 mL) subcut DAILY diabetes #15 mL 07/11/22 [Rx Last Taken 03/01/22] Allergy/AdvReac Type Severity Reaction Status Date / Time propofol AdvReac Other Verified 01/04/23 10:58 Family History Mother Heart disease Diabetes Hypertension Father Heart disease Surgical History H/O aortic valve repair History of foot surgery History of thoracic aortic aneurysm repair Hx of abdominal surgery Social History household members: spouse housing: house current occupational status: retired Smoking Status: Unknown if ever smoked alcohol intake: never substance use type: does not use ROS ROS ED Constitutional Constitutional ED: Denies chills or fever(s) Eyes Eyes: Denies change in vision or discharge from eye(s) ENT ENT ED: Denies discharge from eye(s), rhinorrhea or sore throat Cardiovascular Cardiovascular: Denies chest pain or palpitations Respiratory/Chest Respiratory/Chest: Denies cough or dyspnea Gastrointestinal Gastrointestinal: Denies abdominal pain, nausea or vomiting Genitourinary Genitourinary ED: Denies difficulty urinating or dysuria Musculoskeletal Musculoskeletal: Denies back pain or extremity pain Integumentary Denies Abrasions or rash Neurologic Neurologic: Reports weakness; Denies headache(s) Psychiatric Psychiatric: Denies anxiety or depression Allergic/Immunologic Allergic/Immunologic ED: Denies lip swelling or urticaria EXAM Physical Exam Const Vital Signs: 01/04/23 10:59 01/04/23 11:13 01/04/23 11:15 Temperature 97.3 F L Temperature Source Temporal Pulse Rate 58 L 62 Respiratory Rate 14 15 Blood Pressure 135/82 H 128/64 H Blood Pressure Mean 99 85 Pulse Ox 98 97 Oxygen Delivery Method Room Air Room Air 01/04/23 13:08 01/04/23 15:10 Temperature Temperature Source Pulse Rate 44 L 61 Respiratory Rate 16 14 Blood Pressure 147/65 H 151/72 H Blood Pressure Mean 92 98 Pulse Ox 97 98 Oxygen Delivery Method Room Air Room Air Positive well nourished and well developed General Appearance ED: well developed HEENT Reports normocephalic and head/scalp atraumatic Eyes PERRL and EOMs intact bilaterally Neck supple Chest Wall inspection of chest normal and palpation of chest normal Resp normal respiratory effort and clear to auscultation bilaterally Cardio regular rate and regular rhythm GI normal to inspection, nondistended, normoactive bowel sounds Palpation: soft Extremity Extremity Narrative: Abrasions to the left forearm. No sign of secondary infection at this time. Neuro oriented x3 and no sensory deficits noted Neuro Narrative: No focal neurologic deficits. Sensorium / Orientation: alert Motor Exam: strength 5/5 throughout Psych mental status grossly normal MDM MDM MDM Narrative Medical decision making narrative: Patient placed on awake overnight monitor. EKG obtained to evaluate for cardiac arrhythmia/ischemia. Chest x-ray obtained to evaluate for acute lung pathology, cardiac size, or mediastinal abnormality. Labwork obtained to evaluate for leukocytosis, anemia, and electrolyte derangement. Urinalysis obtained to evaluate for infection/hematuria. Culture was also obtained. Lab Data Attestation: I reviewed the patient's lab results. Labs: Laboratory Results - last 24 hr 01/04/23 01/04/23 01/04/23 11:50 11:50 11:50 WBC 10.2 RBC 5.09 Hgb 13.5 Hct 41.8 MCV 82.1 MCH 26.5 L MCHC 32.3 RDW Std Deviation 42.3 RDW Coeff of Nathaniel 14.2 Plt Count 228 MPV 8.7 Immature Gran % (Auto) 0.900 Neut % (Auto) 78.3 H Lymph % (Auto) 12.8 L [place] % (Auto) 5.9 Eos % (Auto) 1.7 Baso % (Auto) 0.4 Absolute Neuts (auto) 8.0 H Absolute Lymphs (auto) 1.31 Nucleated RBC % 0 PT 32.6 H INR 3.1 Sodium 139 Potassium 4.2 Chloride 105 Carbon Dioxide 25.0 Anion Gap 9 BUN 23 H Creatinine 1.23 Estim Creat Clear Calc 58.64 Est GFR (MDRD) Af Amer 74 Est GFR (MDRD) Non-Af 61 BUN/Creatinine Ratio 18.7 Glucose 133 H Calcium 8.6 Total Bilirubin 0.70 Direct Bilirubin 0.20 AST 13 L ALT 18 Alkaline Phosphatase 102 Troponin I High Sens 7 Total Protein 6.3 L Albumin 3.1 L Globulin 3.2 Urine Color Urine Clarity Urine pH Ur Specific [place] Urine Protein Urine Glucose (UA) Urine Ketones Urine Occult Blood Urine Nitrite Urine Bilirubin Urine Urobilinogen Ur Leukocyte Esterase Urine RBC Urine WBC Ur Squamous Epith Cells Urine Bacteria Urine Mucus 01/04/23 14:00 WBC RBC Hgb Hct MCV MCH MCHC RDW Std Deviation RDW Coeff of Nathaniel Plt Count MPV Immature Gran % (Auto) Neut % (Auto) Lymph % (Auto) [place] % (Auto) Eos % (Auto) Baso % (Auto) Absolute Neuts (auto) Absolute Lymphs (auto) Nucleated RBC % PT INR Sodium Potassium Chloride Carbon Dioxide Anion Gap BUN Creatinine Estim Creat Clear Calc Est GFR (MDRD) Af Amer Est GFR (MDRD) Non-Af BUN/Creatinine Ratio Glucose Calcium Total Bilirubin Direct Bilirubin AST ALT Alkaline Phosphatase Troponin I High Sens Total Protein Albumin Globulin Urine Color Yellow Urine Clarity Sl. Cloudy Urine pH 6.0 Ur Specific [place] 1.020 Urine Protein 15 H Urine Glucose (UA) 100 H Urine Ketones Negative Urine Occult Blood 10 H Urine Nitrite Negative Urine Bilirubin Negative Urine Urobilinogen 4 H Ur Leukocyte Esterase Negative Urine RBC 0-5 SEEN Urine WBC 0 SEEN Ur Squamous Epith Cells 0-5 SEEN Urine Bacteria 0 SEEN Urine Mucus 0 SEEN Radiography Chest X-Ray - ED: 1 View, Read by ED Physician and Chronic Changes Diagnostic Testing: Clinical Impression(s) from Imaging Studies Brain CT 01/04/23 11:34 IMPRESSION: Stable chronic ischemic and atrophic changes. No acute intracranial abnormality. Right maxillary sinusitis. Electronically Signed: Doron Reynolds MD at 12:27 EDT , Chest X-Ray 01/04/23 12:00 IMPRESSION: No acute pulmonary process Electronically Signed: Manan Franklin MD at 13:17 EDT , EKG Initial EKG: Attestation: I personally reviewed and interpreted this EKG as follows: Interpretation: Sinus Bradycardia (Sinus bradycardia at 48 bpm with sinus arrhythmia. No acute ischemia. Right bundle branch block noted.) Treatment and Re-Evaluation :: CBC was normal white count and hemoglobin. INR therapeutic at 3.1. Chemistry studies largely unremarkable. Glucose is 133. LFTs unremarkable. Troponin is normal at 7. Urinalysis reveals no sign of infection. Chest x-ray per my interpretation was chronic changes with no focal infiltrate. CT scan of the head reveals right maxillary sinusitis. Test results are discussed with the patient and at bedside. states that he has been told that he had problems with his right maxillary sinus in the past. He is currently on Flonase. I attempted to call patient's PCP who saw him in the office this morning. He is already left for the day. states that the doctor was very concerned about him this morning. I spoke with in the samuels and she does state that he has been weak and falling. She states he often will not remember and has been much more confused recently. I will speak with hospitalist regarding admission for further testing as well as physical therapy evaluation. Discharge Plan Triage Chief Complaint: Confusion ED Provider: Maggy Roberts Dx/Rx/DC Orders Clinical Impression: Confusion, Weakness Prescriptions: No Action metoprolol succinate 200 MG tablet 200 mg PO DAILY Label Comments: HYPERTENSION losartan 50 MG tablet 50 mg PO DAILY metformin 500 MG tablet,ER mirela.retention 24 hr 1,000 mg PO BID insulin lispro [Humalog KwikPen Insulin] 100 UNIT/ML insulin pen See Protocol SQ 4X/DAY Protocol: 6. Sliding Scale Insulin Custom Condition: mg/dl range Dose/Route: Number of Units Condition: 100-200 Dose/Route: 3 Condition: 201-250 Dose/Route: 5 Condition: 251-300 Dose/Route: 8 Condition: 301-350 Dose/Route: 12 Condition: 351-400 Dose/Route: 15 Protocol Text: Custom Sliding Scale Trulicity 1.5 MG/0.5 ML pen injector 1.5 mg SQ GARCIA Rx Instructions: Saturday atorvastatin 40 MG tablet 40 mg PO QHS warfarin [Jantoven] 5 MG tablet 7.5 mg PO SUTUTHFR Label Comments: blood thinner tamsulosin 0.4 mg capsule 0.4 mg PO QHS Label Comments: TAKE 1 CAPSULE BY MOUTH EVERYDAY AT BEDTIME warfarin 5 mg tablet 10 mg PO Label Comments: 10 MG SATURDAY AND SATURDAY, 7.5 MG ALL OTHER DAYS. PATIENT HAS INR DRAWN BI-WEEKLY. ergocalciferol (vitamin D2) 1,250 mcg (50,000 unit) capsule 1,250 mcg PO GARCIA Label Comments: TAKE 1 CAPSULE BY MOUTH ONE TIME A WEEK. amlodipine 2.5 mg Tablet 2.5 mg PO DAILY 30 Days Qty: 30 0RF aspirin 81 mg Tablet,Delayed Release (Dr/Ec) 81 mg PO BREAKFAST 30 Days Qty: 30 0RF insulin glargine [Lantus Solostar U-100 Insulin] 100 UNITS/ML insulin pen 12 unit subcut DAILY Qty: 15 0RF Primary Care Provider: Luis Caldera Referrals: Luis Caldera MD [Primary Care Provider] -
--- NOTE | 2023-01-04 12:00 | RAD_ITS ---
STUDY: X-RAY CHEST REASON FOR EXAM: Male, 77 years old. Chest pain/pressure TECHNIQUE: Single AP portable view of the chest. COMPARISON: 07/09/2022 FINDINGS: EKG leads overlie the chest The lungs are clear and expanded. There is no demonstrated pleural abnormality. Sternal cerclage wires and vascular clips are present from a prior sternotomy and coronary artery bypass graft procedure (CABG). Normal mediastinum and francesca. Normal visualized pulmonary arteries. Normal visualized aortic arch and descending thoracic aorta. Normal visualized thoracic spine. Normal visualized ribs, clavicles, and shoulders. There is no demonstrated abnormality of the visualized soft tissue structures of the upper abdomen. RAD/Chest 1 View (Portable) IMPRESSION: No acute pulmonary process Electronically Signed: Manan Franklin MD at 13:17 EDT ,
[2023-01-04 12:07] LABS: Absolute Lymphocyte Count 1.31 X10^3/uL (0.83-4.51); Basophil# 0.04 X10^3/uL; Basophil% 0.4 % (0-1); Eosinophil# 0.17 X10^3/uL; Eosinophils% 1.7 % (0-5); Hematocrit 41.8 % (40-54); Hemoglobin 13.5 g/dL (13.0-16.5); Lymphocyte # 1.31 X10^3/ul (0.83-4.51); Lymphocyte % 12.8 % (19-41); Mean Corp Hgb Conc 32.3 g/dL (32-36); Mean Corpuscular Hgb 26.5 pg (27.0-32.0); Mean Corpuscular Volume 82.1 fL (80-94); Mean Platelet Vol. 8.7 fl (6.2-12.0); Monocyte% 5.9 % (0-10); NRBC Flagged by Analyzer 0 % (0-5); Neutrophil # 7.99 X10^3/uL (2.7-7.7); Neutrophil % 78.3 % (47-70); Platelet Count 228 K/mm3 (150-450); RBC Distribution Width CV 14.2 % (11.6-14.6); RBC Distribution Width SD 42.3 fl (35.1-43.9); Red Blood Count 5.09 M/mm3 (4.6-6.2); White Blood Count 10.2 K/mm3 (4.4-11.0)
[2023-01-04 12:11] LABS: International Normalized Ratio 3.1; Prothrombin Time (Protime)PT. 32.6 SECONDS (11.7-14.9)
[2023-01-04 12:19] LABS: AST(SGOT) 13 U/L (15-37); Alanine Aminotransfer ALT/SGPT 18 U/L (16-61); Albumin, Serum 3.1 g/dL (3.2-5.0); Alkaline Phosphatase 102 U/L (45-117); Anion Gap 9 (5-15); BUN 23 mg/dL (7-18); BUN/Creat Ratio 18.7 RATIO (10-20); Calcium,Total 8.6 mg/dL (8.5-10.1); Chloride 105 mmol/L (98-107); Creatinine, Serum 1.23 mg/dL (0.70-1.30); EST Glomerular Filtration Rate 61 mL/min (>60); Est Glom Filt Rate - Afr Amer 74 mL/min (>60); Estimated Creatinine Clearance 58.64 ml/min; Globulin 3.2 g/dL (2.2-4.2); Glucose 133 mg/dL (74-106); Potassium 4.2 mmol/L (3.5-5.1); Protein, Total 6.3 g/dL (6.4-8.2); Sodium Level 139 mmol/L (136-145); Troponin-I HS 7 pg/mL (3.0-78.0)
[2023-01-04 14:05] LABS: Bacteria 0 SEEN /hpf (None Seen); Mucous, Urine 0 SEEN /hpf (<or=2+); White Blood Cells 0 SEEN /hpf (0-5)
[2023-01-04 14:11] LABS: Color, Urine Yellow (Yellow); Glucose, Dipstick 100 mg/dl (Normal); Ketone-Dipstick Negative (Negative); Leukocyte Esterase-Dipstick Negative /ul (Negative); Nitrite-Dipstick Negative (Negative); Occult Blood-Urine 10 /ul (Negative); Protein-Dipstick 15 mg/dl (Negative); Urine Bilirubin Dipstick Negative (Negative); Urine Clarity Sl. Cloudy (Clear); Urine Urobilinogen 4 mg/dl (Normal)
[2023-01-04 14:19] LABS: Red Blood Cells-Urine 0-5 SEEN /hpf (0-5); Squamous Epithelial Cells - UA 0-5 SEEN /hpf (0-5)
--- NOTE | 2023-01-04 15:47 | ED.RN ---
pt assisted up to bedside commode. pt had to be redirected numerous times on what he was doing. Pt tried to sit on toilet with pants pulled up and tried to flip bedside commode sideways to sit on it.
--- NOTE | 2023-01-04 15:55 | NURSING ---
DR LOPEZ FOR DR LORENZO
--- NOTE | 2023-01-04 16:07 | PCM.HP.STD ---
HPI - General General Date of Admission: 01/04/23 Date of Service: 01/04/23 Chief Complaint: Confusion, falls. HPI Narrative The patient is a 77 y/o M w/ PMHx: AAA s/p repair, Hx COVID-19, Hx GI bleed, Valvular heart disease s/p AVR, HTN, HLD, VTE w/ Hx DVT/PE, Diabetes mellitus type II, Obesity who presents to the [facility] ED on 01/04/23 with history of ~ 2 weeks of increased confusion in addition to recent fall off his treadmill with no recent other specific symptoms nor any recent illnesses including no fever, chills, urinary symptoms, cough, dyspnea although she does report that he has had mildly decreased appetite and decreased food intake but no significant weight loss but given ongoing prompted ED evaluation be cautious. Per patient he has had ongoing twice weekly therapies and has not made much progress per her report from most recent therapy assessment. Patient does answer questions appropriately and is oriented but she still thinks he has not been his baseline self. Work-up in the ED included T97.3, heart rate initially 58 although did decrease to 44, most recent 61, BP initially 135/82 with most recent repeat 151/72, respiratory rate 14, 98% on room air, CBC with WC 10.2, hemoglobin 13.5, platelet 228 with left shift, coags with INR 3.1, CMP with BUN/creatinine 23/1.23, glucose 133 otherwise panic profile not marked appearing, troponin 7, urinalysis with specific remedy 1.020, protein 15, glucose 100, ketone negative, occult blood 10, urobilinogen 4, negative leukocyte Estrace, no marked urine RBC or WBCs, 0 urine bacteria, blood culture x2 pending per ED, urine culture pending per ED, chest x-ray with no acute cardiopulmonary findings, CT of the head with stable chronic ischemic and atrophic changes, no acute intracranial abnormality, right maxillary sinusitis. 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 Upper gastrointestinal bleed Ureterolithiasis Valvular heart disease Home Medications metoprolol succinate 200 mg tablet,extended release 24 hr 200 mg PO DAILY blood pressure 09/16/13 [History Last Taken 01/04/23] losartan 50 mg tablet 50 mg PO DAILY blood pressure 03/24/18 [History Last Taken 01/04/23] metformin 500 mg 24 hr tablet,extended release 1,000 mg PO BID diabetes 03/24/18 [History Last Taken 01/04/23] atorvastatin 40 mg tablet 40 mg PO QHS cholesterol 05/22/18 [History Last Taken 01/03/23] dulaglutide 1.5 mg/0.5 mL subcutaneous pen injector (Trulicity) 1.5 mg SQ GARCIA diabetes 05/22/18 [History Last Taken 12/29/22] insulin lispro 100 unit/mL subcutaneous pen (Humalog KwikPen (U-100) Insulin) See Protocol SQ 4X/DAY diabetes 05/22/18 [History Last Taken 01/04/23] warfarin 5 mg tablet (Jantoven) 7.5 mg PO SUTUTHFRSA anticoagulant 05/22/18 [History Last Taken 01/04/23] tamsulosin 0.4 mg capsule 0.4 mg PO QHS PROSTATE 03/02/22 [History Last Taken 01/03/23] warfarin 5 mg tablet 10 mg PO MOWE 03/02/22 [History Last Taken 01/02/23] amlodipine 2.5 mg tablet 2.5 mg PO DAILY 30 days #30 tabs 07/11/22 [Rx Last Taken 01/04/23] insulin glargine 100 unit/mL (3 mL) subcutaneous pen (Lantus Solostar U-100 Insulin) 12 unit (0.12 mL) subcut DAILY diabetes #15 mL 07/11/22 [Rx Last Taken 01/04/23] Allergy/AdvReac Type Severity Reaction Status Date / Time propofol AdvReac Other Verified 01/04/23 10:58 Family History Mother Heart disease Diabetes Hypertension Father Heart disease Surgical History H/O aortic valve repair History of foot surgery History of thoracic aortic aneurysm repair Hx of abdominal surgery Social History household members: spouse housing: house current occupational status: retired Smoking Status: Unknown if ever smoked alcohol intake: never substance use type: does not use ROS ROS Narrative Admission Review of Systems: CONSTITUTIONAL: No weight loss, fever, chills, + weakness or fatigue. HEENT: Eyes: No visual loss, blurred vision, double vision or yellow sclerae. Ears, Nose, Throat: No hearing loss, sneezing, congestion, runny nose or sore throat. SKIN: + Recent mechanical fall with healing wound/lacerations noninfected appearing to the left upper extremity, occasional staged ecchymoses. CARDIOVASCULAR: No chest pain, chest pressure or chest discomfort, palpitations, edema, orthopnea, syncopal events. RESPIRATORY: No shortness of breath, cough or sputum, wheezing, hemoptysis. GASTROINTESTINAL: No anorexia, nausea, vomiting or diarrhea, abdominal pain, melena, BRBPR. GENITOURINARY: No dysuria, frequency, urgency or retention. NEUROLOGICAL: + Transient confusion, weakness. No headache, dizziness, syncope, paralysis, ataxia, numbness or tingling in the extremities, focal weakness, change in bowel or bladder control, seizure. MUSCULOSKELETAL: + muscle, back pain, joint pain or stiffness. HEMATOLOGIC: + Easy bleeding or bruising. LYMPHATICS: No enlarged nodes. No history of splenectomy. PSYCHIATRIC: No history of depression or anxiety. ENDOCRINOLOGIC: No reports of sweating, cold or heat intolerance. No polyuria or polydipsia. ALLERGIES: No history of asthma, hives, eczema or rhinitis. Vital Signs Vital Signs Vital Signs: 01/04/23 10:59 01/04/23 11:13 01/04/23 11:15 Temperature 97.3 F L Temperature Source Temporal Pulse Rate 58 L 62 Respiratory Rate 14 15 Blood Pressure 135/82 H 128/64 H Blood Pressure Mean 99 85 Pulse Ox 98 97 Oxygen Delivery Method Room Air Room Air 01/04/23 13:08 01/04/23 15:10 Temperature Temperature Source Pulse Rate 44 L 61 Respiratory Rate 16 14 Blood Pressure 147/65 H 151/72 H Blood Pressure Mean 92 98 Pulse Ox 97 98 Oxygen Delivery Method Room Air Room Air Weight Weight: 230 lb 13.184 oz Body Mass Index (BMI) 30.4 Physical Exam Narrative Physical Examination: General: Awake, alert, oriented to self, place, recent events, appears that his prior baseline noted during prior evaluations, remains cooperative, seated upright in the ED bed, no acute complaints at this time but still believes he has not been quite himself and has been more weak. Skin: Normal color, normal turgor, no icterus, no cyanosis except for occasional staged ecchymoses as well as healing left arm wound/abrasions with no periwound erythema or drainage noted. HEENT: AT/NC, EOMI, PERRLA, MMM, no carotid bruits or JVD noted. Lungs: Mildly diminished, greater bases, appropriate effort, no rales, ronchi or wheezing. Heart: Mildly bradycardic with regular rhythm; no gallop, rub audible. Abdomen: Soft, obese, NTTP, ND, normal BS, no HSM. Extremities: No cyanosis, clubbing, or edema, see skin. Neurological: Patient awake, alert, oriented as noted, cognitive function improved, currently baseline intact; pupils equally reactive to light and accommodation, cranial nerves II-XII grossly normal, moving all 4 extremities, no focal deficits, strength moderately globally decreased. Psychiatric: Affect appears appropriate, interactive, no acute evidence of depressive or anxiety feelings. Results Lab / Micro Data Result Diagrams: 01/04/23 11:50 01/04/23 11:50 Labs: Laboratory Results - last 24 hr 01/04/23 11:50: WBC 10.2, RBC 5.09, Hgb 13.5, Hct 41.8, MCV 82.1, MCH 26.5 L, MCHC 32.3, RDW Std Deviation 42.3, RDW Coeff of Nathaniel 14.2, Plt Count 228, MPV 8.7, Immature Gran % (Auto) 0.900, Neut % (Auto) 78.3 H, Lymph % (Auto) 12.8 L, Oliver % (Auto) 5.9, Eos % (Auto) 1.7, Baso % (Auto) 0.4, Absolute Neuts (auto) 8.0 H, Absolute Lymphs (auto) 1.31, Nucleated RBC % 0 01/04/23 11:50: PT 32.6 H, INR 3.1 01/04/23 11:50: Sodium 139, Potassium 4.2, Chloride 105, Carbon Dioxide 25.0, Anion Gap 9, BUN 23 H, Creatinine 1.23, Estim Creat Clear Calc 58.64, Est GFR (MDRD) Af Amer 74, Est GFR (MDRD) Non-Af 61, BUN/Creatinine Ratio 18.7, Glucose 133 H, Calcium 8.6, Total Bilirubin 0.70, Direct Bilirubin 0.20, AST 13 L, ALT 18, Alkaline Phosphatase 102, Troponin I High Sens 7, Total Protein 6.3 L, Albumin 3.1 L, Globulin 3.2 01/04/23 14:00: Urine Color Yellow, Urine Clarity Sl. Cloudy, Urine pH 6.0, Ur Specific [place] 1.020, Urine Protein 15 H, Urine Glucose (UA) 100 H, Urine Ketones Negative, Urine Occult Blood 10 H, Urine Nitrite Negative, Urine Bilirubin Negative, Urine Urobilinogen 4 H, Ur Leukocyte Esterase Negative, Urine RBC 0-5 SEEN, Urine WBC 0 SEEN, Ur Squamous Epith Cells 0-5 SEEN, Urine Bacteria 0 SEEN, Urine Mucus 0 SEEN Radiology Impression Brain CT 01/04/23 11:34 IMPRESSION: Stable chronic ischemic and atrophic changes. No acute intracranial abnormality. Right maxillary sinusitis. Electronically Signed: Doron Reynolds MD at 12:27 EDT , Chest X-Ray 01/04/23 12:00 IMPRESSION: No acute pulmonary process Electronically Signed: Manna Franklin MD at 13:17 EDT , Assessment & Plan Assessment/Plan (1) Confusion: PLAN: Plan The patient is a 77 y/o M w/ PMHx: AAA s/p repair, Hx COVID-19, Hx GI bleed, Valvular heart disease s/p AVR, HTN, HLD, VTE w/ Hx DVT/PE, Diabetes mellitus type II, Obesity who presents to the [facility] ED on 01/04/23 with history of ~ 2 weeks of increased confusion in addition to recent fall off his treadmill with no recent other specific symptoms nor any recent illnesses including no fever, chills, urinary symptoms, cough, dyspnea although she does report that he has had mildly decreased appetite and decreased food intake but no significant weight loss but given ongoing prompted ED evaluation be cautious. #1. Increased Confusion, falls, unclear etiology: Will admit to PCU to be cautious although unclear specific etiology for falls and given this has been ongoing for 2 weeks would have expected something on the CT head by now, we will continue patient Coumadin with INR trending noted to be subtherapeutic upon presentation, will continue hypertensive regimen as patient has had the symptoms ongoing for 2 weeks with stable BP currently, continue statin therapy, patient with most recent echocardiogram noted 07/10/2022 thus will defer immediate repeat at this time awaiting MRI of the brain. Will request PT/OT/case management consultation for discharge planning. If MRI of the brain is concerning or there is any acute findings low threshold to involve neurology. Ammonia and ABG have also been requested to be cautious. Maintain on fall and aspiration precautions. HgbA1c, FLP, Mag, TSH, Procalcitonin requested. #2. History of VTE: Patient with history DVT, PE, we will continue patient on Coumadin regimen, INR therapeutic upon presentation 3.1, will continue to trend with hold parameters as needed. #3. Hypertension: Continue home regimen including metoprolol, losartan, amlodipine with hold parameters as needed, PRN hydralazine. #4. Hyperlipidemia: We will continue patient on statin therapy, FLP in AM. #5. Diabetes mellitus type II: Hold oral home regimen, continue home insulin regimen, ADA diet, accu checks w/ ISS. #6. History AAA: Status post repair 2006, will continue aspirin, Coumadin with INR trending, hypertensive regimen, statin regimen as noted. #7. Valvular heart disease: Status post AVR, 07/10/2022 echocardiogram with moderate concentric LVH, EF of 65%, LV systolic function normal, severely enlarged LA, mild mitral valve insufficiency, calcified aortic root. #8. BPH: We will continue patient home Flomax regimen. #9. Obesity: Weight loss and lifestyle changes encouraged. #10. DVT prophylaxis: Continue patient Coumadin with INR trending. #11. CODE status: Patient ANTHONY is their son Teddy and living will is currently in place. Full Code status confirmed with both patient and present. Admission Evaluation Time spent evaluating chart, patient history, patient evaluation, care planning and discussion with specialists: 60 minutes. Charges/Coding Visit Charges Inpatient E&M: 83223 Init Hosp L2
--- NOTE | 2023-01-04 16:08 | NURSING ---
PCU OBS WHITE CONFUSION, WEAKNESS
[2023-01-04 17:03] LABS: Magnesium 1.8 mg/dL (1.6-2.6)
[2023-01-04 17:08] LABS: Base Excess 0 mmol/L (-2 to +2); Bicarbonate 23.7 mmol/L (22-26); Blood Gas Specimen Type ART; FI02 21; O2 Delivery Device Room Air; PO2 78 mmHG (75-100); SITE R Brach; SO2 96 % (95-99); Total Carbon Dioxide 25 mmol/L; pCO2 33.9 mmHg (35-45); pH 7.45 (7.35-7.45)
[2023-01-04 18:50] LABS: Procalcitonin < 0.04 ng/mL (0.00-0.09)
[2023-01-04 19:00] LABS: Vitamin B12 260 pg/mL (211-911)
[2023-01-04] MEDS: Atorvastatin Calcium 40 MG Tablet PO (21:56)
[2023-01-04] MEDS: Tamsulosin HCl 0.4 MG Capsule PO (21:56)
[2023-01-04 23:04] LABS: Bedside Glucose 117 mg/dL (74-106)
[2023-01-05] VITALS (13 sets, daily range): BP systolic 130–136; BP diastolic 67–80; PULSE 35–71; RESP 14–54; TEMP 36.6–36.9; O2SAT 93–99; BMI 30.4; BMI 30.2
--- NOTE | 2023-01-05 06:00 | MRI_ITS ---
STUDY: MRI BRAIN WITHOUT CONTRAST REASON FOR EXAM: Male, 77 years old. TIA TECHNIQUE: Standardized multiplanar fat and water weighted pulse sequences were obtained. COMPARISON: MR July 05, 2022. HEMISPHERES, CEREBELLUM AND BRAINSTEM: 1. Moderate cortical and central atrophy, moderate chronic microvascular ischemic change in the periventricular white matter extending to the frontal centrum semiovale bilaterally and the right parietal centrum semiovale. No intraparenchymal mass, hemorrhage, or acute territorial infarct. 2. The brainstem, basilar and suprasellar cisterns have normal appearance. No Chiari malformation. PITUITARY: Infundibulum and pituitary have normal configuration. Midline structures appear normal. CSF SPACES: No hydrocephalus. Basal cisterns are patent. VESSELS: 1. There are normal flow voids noted in the great vessels at the skull base ORBITS AND PARANASAL SINUSES: 1. Both globes, extraocular muscles, optic nerves and retrobulbar fat appear unremarkable. 2. Paranasal sinuses demonstrate hypoplasia of the right maxillary sinus with moderate mucosal thickening. 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 Mild bilateral ethmoidal mucosal thickening stable. BONY ELEMENTS: Bony elements of the cranial vault, facial skeleton and skull base have normal appearance. SCALP AND SOFT TISSUES: Normal appearance of the soft tissues of the scalp and the visualized face OTHER: None Stable exam. MRI/Brain without Contrast IMPRESSION: No intracranial mass, hemorrhage, or acute territorial infarct. Moderate cortical and central atrophy. Moderate chronic microvascular ischemic change. Right maxillary and bilateral ethmoidal paranasal sinus disease. Electronically Signed: Gabriel Macias MD, AME at 10:35 EDT ,
--- NOTE | 2023-01-05 06:31 | PN.HOSP_ITS ---
Reason for Visit Reason for Visit: Diagnoses Disorientation, unspecified (01/04/23) Subjective Subjective Patient overnight heart rate occasionally in the 30s, asymptomatic and often sleeping, BB dose adjusted and hold parameters placed. Patient remains weak and confused similar to his presentation. MRI this AM without acute findings with no intracranial mass, hemorrhage or acute territorial infarct, moderate cortical and central atrophy, moderate chronic microvascular ischemic changes as well as right maxillary and bilateral ethmoid old paraspinal sinus disease. Patient's work-up including also labs unremarkable. Patient therapy assessments however with some concern and recommendation for continued evaluation with possible placement needs. Patient denies fevers, chills, nausea, emesis, abdominal pain, chest pain or dyspnea. Objective Data Objective Data Vital Signs: Vital Signs Temp Pulse Resp BP Pulse Ox O2 Del Method 98.4 F 35 L 16 136/67 H 99 Room Air 01/05/23 02:58 01/05/23 02:58 01/05/23 02:58 01/05/23 02:58 01/05/23 02:58 01/05/23 02:58 Oxygen Delivery Method Room Air Weight: 229 lb 1.6 oz Body Mass Index (BMI) 30.2 Intake & Output: Intake and Output for Last 24 Hours 01/03/23 01/04/23 01/05/23 23:59 23:59 23:59 Intake Total 100 / 100 200 / 200 Balance 100 / 100 200 / 200 Lab / Micro Data Result Diagrams: 01/05/23 06:44 01/05/23 06:44 Labs: Laboratory Results - last 24 hr 01/04/23 11:50: WBC 10.2, RBC 5.09, Hgb 13.5, Hct 41.8, MCV 82.1, MCH 26.5 L, MCHC 32.3, RDW Std Deviation 42.3, RDW Coeff of Nathaniel 14.2, Plt Count 228, MPV 8.7, Immature Gran % (Auto) 0.900, Neut % (Auto) 78.3 H, Lymph % (Auto) 12.8 L, [place] % (Auto) 5.9, Eos % (Auto) 1.7, Baso % (Auto) 0.4, Absolute Neuts (auto) 8.0 H, Absolute Lymphs (auto) 1.31, Nucleated RBC % 0 01/04/23 11:50: PT 32.6 H, INR 3.1 01/04/23 11:50: Sodium 139, Potassium 4.2, Chloride 105, Carbon Dioxide 25.0, Anion Gap 9, BUN 23 H, Creatinine 1.23, Estim Creat Clear Calc 58.64, Est GFR (M DRD) Af Amer 74, Est GFR (MDRD) Non-Af 61, BUN/Creatinine Ratio 18.7, Glucose 133 H, Calcium 8.6, Total Bilirubin 0.70, Direct Bilirubin 0.20, AST 13 L, ALT 18, Alkaline Phosphatase 102, Troponin I High Sens 7, Total Protein 6.3 L, Albumin 3.1 L, Globulin 3.2 01/04/23 14:00: Urine Color Yellow, Urine Clarity Sl. Cloudy, Urine pH 6.0, Ur Specific [place] 1.020, Urine Protein 15 H, Urine Glucose (UA) 100 H, Urine Ketones Negative, Urine Occult Blood 10 H, Urine Nitrite Negative, Urine Bilirubin Negative, Urine Urobilinogen 4 H, Ur Leukocyte Esterase Negative, Urine RBC 0-5 SEEN, Urine WBC 0 SEEN, Ur Squamous Epith Cells 0-5 SEEN, Urine Bacteria 0 SEEN, Urine Mucus 0 SEEN 01/04/23 16:31: Magnesium 1.8 01/04/23 16:31: Ammonia 17.0 01/04/23 16:31: Procalcitonin < 0.04 01/04/23 16:31: Vitamin B12 260 01/04/23 16:31: Folate 4.40 01/04/23 21:49: POC Glucose 117 H ABG Data ABG results: ABG 01/04/23 17:05 Specimen Type ART Sample Site R Brach pH 7.45 Bicarbonate Actual 23.7 Total CO2 25 Base Excess 0 O2 Saturation 96 O2 % 21 ABG pCO2 33.9 L ABG pO2 78 Heriberto Test N/A O2 Delivery Device Room Air Radiography Diagnostic Testing: Radiology Impression Brain CT 01/04/23 11:34 IMPRESSION: Stable chronic ischemic and atrophic changes. No acute intracranial abnormality. Right maxillary sinusitis. Electronically Signed: Doron Reynolds MD at 12:27 EDT , Chest X-Ray 01/04/23 12:00 IMPRESSION: No acute pulmonary process Electronically Signed: Manan Franklin MD at 13:17 EDT , Physical Exam Narrative Physical Examination: General: Awake, alert, oriented to self, place, recent events, but still requires significant cueing and suspect underlying chronic memory issues, remains cooperative, seated upright in the PCU bed, fatigued but no acute distress. Skin: Normal color, normal turgor, no icterus, no cyanosis except for occasional staged ecchymoses as well as healing left arm wound/abrasions with no periwound erythema or drainage noted. HEENT: AT/NC, EOMI, PERRLA, MMM. Lungs: Mildly diminished, greater bases, appropriate effort, no rales, ronchi or wheezing. Heart: Bradycardic with regular rhythm; no gallop, rub audible. Abdomen: Soft, obese, NTTP, ND, normal BS. Extremities: No cyanosis, clubbing, or edema, see skin. Neurological: Patient awake, alert, oriented as noted, cognitive function still seems improved but suspect that patient has chronic underlying memory issues, currently baseline intact; pupils equally reactive to light and accommodation, cranial nerves II-XII grossly normal, moving all 4 extremities, no focal deficits, strength moderately to severely globally decreased. Psychiatric: Affect appears fatigued, no acute evidence of depressive or anxiety feelings. Assessment & Plan Assessment/Plan (1) Confusion: PLAN: Plan The patient is a 77 y/o M w/ PMHx: AAA s/p repair, Hx COVID-19, Hx GI bleed, Valvular heart disease s/p AVR, HTN, HLD, VTE w/ Hx DVT/PE, Diabetes mellitus type II, Obesity who presents to the [facility] ED on 01/04/23 with history of ~ 2 weeks of increased confusion in addition to recent fall off his treadmill with no recent other specific symptoms nor any recent illnesses including no fever, chills, urinary symptoms, cough, dyspnea although she does report that he has had mildly decreased appetite and decreased food intake but no significant weight loss but given ongoing prompted ED evaluation be cautious. #1. Increased Confusion, falls, unclear etiology: Admitted to PCU to be cautious although unclear specific etiology for falls and given this has been ongoing for 2 weeks would have expected something on the CT head by now, continue patient home Coumadin, 01/05/2023 INR 2.8, continued hypertensive regimen given duration of symptoms, continued statin therapy with FLP as noted, patient with most recent echocardiogram noted 07/10/2022 thus immediate repeat deferred, 01/05/23 MRI this AM without acute findings with no intracranial mass, hemorrhage or acute territorial infarct, moderate cortical and central atrophy, moderate chronic microvascular ischemic changes as well as right maxillary and bilateral ethmoid old paraspinal sinus disease. Magnesium 1.8, ammonia 17, TSH 1.13, HgBA1c 5.8%, ABG not marked appearing, procalcitonin less than 0.04, folate 4.40, vitamin B12 260. Vitamin B12/Folic acid supplementation started. PT/OT following and recommending more therapy assessments, may need SNF placement. Neurology consulted and pending. #3. Bradycardia: Patient with significant bradycardia primarily while he sleeping but also at rest with rate going down into the 30s on a significant dose of beta-ihsan therapy. Patient when this occurs does not appear to be super symptomatic but given his presentation to be cautious we will adjust this beta-ihsan and place hold parameters with continued close monitoring on telemetry. #2. History of VTE: Patient with history DVT, PE, we will continue patient on Coumadin regimen, INR therapeutic upon presentation 3.1->01/05/23 INR 2.8, will continue to trend with hold parameters as needed. #3. Hypertension: Continue home regimen including metoprolol, losartan, amlodipine with hold parameters as needed, PRN hydralazine. #4. Hyperlipidemia: We will continue patient on statin therapy, FLP with triglyceride 116, total cholesterol 87, LDL 27, VLDL 23, HDL 37. #5. Diabetes mellitus type II: Hold oral home regimen, continue home insulin regimen, ADA diet, accu checks w/ ISS, hemoglobin A1c 5.8% with no evidence of hypoglycemia. #6. History AAA: Status post repair 2006, will continue aspirin, Coumadin with INR trending, hypertensive regimen, statin regimen as noted. #7. Valvular heart disease: Status post AVR, 07/10/2022 echocardiogram with moderate concentric LVH, EF of 65%, LV systolic function normal, severely enlarged LA, mild mitral valve insufficiency, calcified aortic root. #8. BPH: We will continue patient home Flomax regimen. #9. Obesity: Weight loss and lifestyle changes encouraged. #10. DVT prophylaxis: Continue patient Coumadin with INR trending, 01/05/2023 INR 2.8. #11. CODE status: Patient ANTHONY is their son Teddy and living will is currently in place. Full Code status confirmed with both patient and present. Admission Evaluation Time spent evaluating chart, patient history, patient evaluation, care planning and discussion with specialists: 35 minutes. Charges/Coding Visit Charges Inpatient E&M: 42852 Subs Hosp L2
--- NOTE | 2023-01-05 07:13 | NURSING ---
completed w/mold shifter Zonia MARI
[2023-01-05 07:15] LABS: Absolute Lymphocyte Count 1.46 X10^3/uL (0.83-4.51); Absolute Neutrophil Count 6.2 X10^3/uL (2.0-7.7); Basophil# 0.05 X10^3/uL; Basophil% 0.6 % (0-1); Eosinophil# 0.24 X10^3/uL; Eosinophils% 2.8 % (0-5); Hematocrit 41.5 % (40-54); Hemoglobin 13.3 g/dL (13.0-16.5); Lymphocyte # 1.46 X10^3/ul (0.83-4.51); Lymphocyte % 16.9 % (19-41); Mean Corpuscular Hgb 26.7 pg (27.0-32.0); Mean Corpuscular Volume 83.2 fL (80-94); Monocyte# 0.59 X10^3/uL; Monocyte% 6.8 % (0-10); NRBC Flagged by Analyzer 0 % (0-5); Neutrophil % 71.6 % (47-70); Platelet Count 208 K/mm3 (150-450); RBC Distribution Width CV 14.3 % (11.6-14.6); RBC Distribution Width SD 42.9 fl (35.1-43.9); Red Blood Count 4.99 M/mm3 (4.6-6.2); White Blood Count 8.7 K/mm3 (4.4-11.0)
[2023-01-05 07:15] LABS: Bedside Glucose 149 mg/dL (74-106)
[2023-01-05 07:18] LABS: International Normalized Ratio 2.8; Prothrombin Time (Protime)PT. 29.7 SECONDS (11.7-14.9)
[2023-01-05 07:42] LABS: Hemoglobin A1c 5.8 % (3.8-5.6)
[2023-01-05 07:54] LABS: AST(SGOT) 14 U/L (15-37); Alanine Aminotransfer ALT/SGPT 19 U/L (16-61); Albumin, Serum 3.1 g/dL (3.2-5.0); Alkaline Phosphatase 100 U/L (45-117); Anion Gap 7 (5-15); BUN 21 mg/dL (7-18); BUN/Creat Ratio 18.6 RATIO (10-20); Calcium,Total 8.6 mg/dL (8.5-10.1); Chloride 105 mmol/L (98-107); Cholesterol 87 mg/dL (200); Creatinine, Serum 1.13 mg/dL (0.70-1.30); EST Glomerular Filtration Rate 67 mL/min (>60); Est Glom Filt Rate - Afr Amer 81 mL/min (>60); Estimated Creatinine Clearance 63.83 ml/min; Globulin 3.1 g/dL (2.2-4.2); Glucose 126 mg/dL (74-106); High Density Lipoprotein 37 mg/dL; Potassium 3.9 mmol/L (3.5-5.1); Protein, Total 6.2 g/dL (6.4-8.2); Sodium Level 138 mmol/L (136-145); Thyroid Stim Hormone (TSH) 1.13 uIU/mL (0.358-3.74); Triglycerides 116 mg/dL; Very Low Density Lipoprotein 23 mg/dL (5-40)
--- NOTE | 2023-01-05 11:13 | CASEMGMT ---
JACEY MASON in to discuss PANTOJA form with patient. Pt A&Ox3. RN ISABELLA explained PANTOJA form, patient voiced understanding. Pt signed form and filed in chart. Pt provided with a copy of signed PANTOJA form. Pt states he has been doing well at home. States he is going to outpt therapy at [facility] [place] and would like to continue this. Pt states he is I in ADL's and denies concerns at home, uses a cane. Patient had no further questions or concerns at this time.
[2023-01-05] MEDS: Aspirin 81 MG TAB.CHEW PO (12:24)
[2023-01-05 12:44] LABS: Bedside Glucose 138 mg/dL (74-106)
--- NOTE | 2023-01-05 12:57 | CASEMGMT ---
Social Work SW introduced self and role to patient. Hospitalist and nursing staff indicated placement might be necessary. Pt is wanting outpt services initially. present and reports many stairs in current home but moving in 2 weeks to a residence without stairs. SNF list according to pt insurance, location and needs provided but reports she already knows and requested [facility] due to daughter in law working there. Plan: Refer to SNF and follow PT/OT and patient needs for d/c. Jennifer Sandoval PHOTOENGRAVING SKETCH MAKER, CREW MEMBER
[2023-01-05] MEDS: amLODIPine 2.5 MG Tablet PO (14:45)
[2023-01-05] MEDS: Losartan Potassium 50 MG Tablet PO (14:45)
[2023-01-05] MEDS: Insulin Glargine-YFGN 100 UNIT/ML Pen 12 UNIT SC (14:47)
[2023-01-05 18:39] LABS: Syphilis Antibodies Non-reactive
[2023-01-05] MEDS: Tamsulosin HCl 0.4 MG Capsule PO (21:04)
[2023-01-05] MEDS: Atorvastatin Calcium 40 MG Tablet PO (21:04)
[2023-01-05 21:25] LABS: Bedside Glucose 132 mg/dL (74-106)
[2023-01-05 22:51] LABS: Bedside Glucose 122 mg/dL (74-106)
[2023-01-06 03:00] VITALS: BP 134/72; PULSE 78; RESP 14; TEMP 36.6; O2SAT 94
[2023-01-06 03:21] VITALS: BMI 30.2
[2023-01-06 05:43] LABS: Absolute Lymphocyte Count 1.83 X10^3/uL (0.83-4.51); Absolute Neutrophil Count 6.4 X10^3/uL (2.0-7.7); Basophil# 0.04 X10^3/uL; Basophil% 0.4 % (0-1); Eosinophil# 0.19 X10^3/uL; Hematocrit 40.7 % (40-54); Hemoglobin 13.1 g/dL (13.0-16.5); Lymphocyte # 1.83 X10^3/ul (0.83-4.51); Lymphocyte % 19.7 % (19-41); Mean Corp Hgb Conc 32.2 g/dL (32-36); Mean Corpuscular Volume 83.7 fL (80-94); Mean Platelet Vol. 9.2 fl (6.2-12.0); Monocyte% 7.6 % (0-10); NRBC Flagged by Analyzer 0 % (0-5); Neutrophil # 6.43 X10^3/uL (2.7-7.7); Neutrophil % 69.4 % (47-70); Platelet Count 200 K/mm3 (150-450); RBC Distribution Width CV 14.2 % (11.6-14.6); RBC Distribution Width SD 43.2 fl (35.1-43.9); Red Blood Count 4.86 M/mm3 (4.6-6.2); White Blood Count 9.3 K/mm3 (4.4-11.0)
[2023-01-06 06:00] VITALS: BMI 30.3
[2023-01-06 06:00] LABS: International Normalized Ratio 2.3; Prothrombin Time (Protime)PT. 25.6 SECONDS (11.7-14.9)
[2023-01-06 06:27] LABS: AST(SGOT) 12 U/L (15-37); Alanine Aminotransfer ALT/SGPT 17 U/L (16-61); Albumin, Serum 2.9 g/dL (3.2-5.0); Alkaline Phosphatase 90 U/L (45-117); Anion Gap 7 (5-15); BUN 23 mg/dL (7-18); BUN/Creat Ratio 20.2 RATIO (10-20); Calcium,Total 8.5 mg/dL (8.5-10.1); Chloride 106 mmol/L (98-107); Creatinine, Serum 1.14 mg/dL (0.70-1.30); EST Glomerular Filtration Rate 67 mL/min (>60); Est Glom Filt Rate - Afr Amer 81 mL/min (>60); Estimated Creatinine Clearance 63.27 ml/min; Glucose 121 mg/dL (74-106); Potassium 3.6 mmol/L (3.5-5.1); Protein, Total 5.9 g/dL (6.4-8.2); Sodium Level 137 mmol/L (136-145)
[2023-01-06 08:00] VITALS: BP 133/79; PULSE 87; RESP 16; TEMP 36.5; O2SAT 100
[2023-01-06 08:04] VITALS: O2SAT 94
--- NOTE | 2023-01-06 08:04 | CPS ---
pt eating breakfast, smi and pep held
[2023-01-06] MEDS: Aspirin 81 MG TAB.CHEW PO (08:13)
[2023-01-06] MEDS: amLODIPine 2.5 MG Tablet PO (08:19)
[2023-01-06] MEDS: Losartan Potassium 50 MG Tablet PO (08:19)
[2023-01-06] MEDS: Insulin Glargine-YFGN 100 UNIT/ML Pen 12 UNIT SC (08:23)
[2023-01-06] MEDS: Folic Acid 1 MG Tablet PO (08:25)
[2023-01-06] MEDS: Cyanocobalamin 500 MCG Tablet 1000 MCG PO (08:25)
[2023-01-06 08:26] VITALS: BP 133/79; PULSE 92
[2023-01-06] MEDS: Metoprolol(XL)Succ 100 MG Tablet PO (08:26)
[2023-01-06 09:06] LABS: Bedside Glucose 221 mg/dL (74-106)
[2023-01-06 10:59] VITALS: O2SAT 94
[2023-01-06 12:35] LABS: Bedside Glucose 146 mg/dL (74-106)
[2023-01-06 13:42] VITALS: BMI 30.3
[2023-01-06 16:49] LABS: Bedside Glucose 125 mg/dL (74-106)
--- NOTE | 2023-01-06 17:42 | PN.HOSP_ITS ---
Reason for Visit Reason for Visit: Diagnoses Disorientation, unspecified (01/05/23) Subjective Subjective Patient was seen and examined today, I talked to nursing about his care, according to nursing, patient appears confused at times. Patient was not able to get the year correct when I asked him today, he looked at the wall and stated it was December because it was written on the block wore on the wall, he does know he is in the hospital. I reviewed the patient's telemetry neurology consultation, they felt that the patient could have undiagnosed dementia. Objective Data Objective Data Vital Signs: Vital Signs Temp Pulse Resp BP Pulse Ox O2 Del Method 97.7 F L 92 16 133/79 H 94 Room Air 01/06/23 08:00 01/06/23 08:26 01/06/23 08:00 01/06/23 08:26 01/06/23 10:59 01/06/23 13:37 Oxygen Delivery Method Room Air Weight: 104.4 kg Body Mass Index (BMI) 30.3 Intake & Output: Intake and Output for Last 24 Hours 01/04/23 01/05/23 01/06/23 23:59 23:59 23:59 Intake Total 100 / 100 200 / 300 670 / 670 Balance 100 / 100 200 / 300 670 / 670 Lab / Micro Data Result Diagrams: 01/06/23 04:49 01/06/23 04:49 Labs: Laboratory Results - last 24 hr 01/04/23 16:31: Syphilis Total Ab Non-reactive 01/05/23 16:52: POC Glucose 122 H 01/05/23 21:01: POC Glucose 132 H 01/06/23 04:49: WBC 9.3, RBC 4.86, Hgb 13.1, Hct 40.7, MCV 83.7, MCH 27.0, MCHC 32.2, RDW Std Deviation 43.2, RDW Coeff of Nathaniel 14.2, Plt Count 200, MPV 9.2, Immature Gran % (Auto) 0.900, Neut % (Auto) 69.4, Lymph % (Auto) 19.7, [place] % (Auto) 7.6, Eos % (Auto) 2.0, Baso % (Auto) 0.4, Absolute Neuts (auto) 6.4, Absolute Lymphs (auto) 1.83, Nucleated RBC % 0 01/06/23 04:49: PT 25.6 H, INR 2.3 01/06/23 04:49: Sodium 137, Potassium 3.6, Chloride 106, Carbon Dioxide 24.0, Anion Gap 7, BUN 23 H, Creatinine 1.14, Estim Creat Clear Calc 63.27, Est GFR (MDRD) Af Amer 81, Est GFR (MDRD) Non-Af 67, BUN/Creatinine Ratio 20.2 H, Glucose 121 H, Calcium 8.5, Total Bilirubin 0.70, AST 12 L, ALT 17, Alkaline Phosphatase 90, Total Protein 5.9 L, Albumin 2.9 L, Globulin 3.0, Al bumin/Globulin Ratio 1.0 01/06/23 08:23: POC Glucose 221 H 01/06/23 12:14: POC Glucose 146 H 01/06/23 16:27: POC Glucose 125 H Micro: Microbiology 01/04/23 14:00 Urine, Random Urine Culture - Final Mixed Gram Positive Organisms 01/04/23 12:19 Blood Culture (Wb) - Left Forearm Blood Culture - Preliminary No growth in 48 hours. 01/04/23 11:50 Blood Culture (Wb) - Left Forearm Blood Culture - Preliminary No growth in 48 hours. Physical Exam Const alert, no apparent distress, average body habitus and healthy appearing General Appearance: cooperative, well kempt and well developed Orientation / Consciousness: awake, oriented to person and oriented to place HEENT normocephalic, head/scalp atraumatic and moist oral mucous membranes Eyes PERRL, EOMs intact bilaterally and conjunctivae normal Neck supple, no JVD, thyroid normal and no carotid bruits General: trachea midline Resp normal respiratory effort, no retractions, no use of accessory muscles and clear to auscultation bilaterally Auscultation: Negative for rales, rhonchi or wheezes Cardio regular rate, regular rhythm, S1 normal heart sound, S2 normal heart sound, no murmurs, no rub and no gallops GI normal to inspection, nondistended, normoactive bowel sounds, soft to palpation, non-tender and non-distended Extremity no clubbing, cyanosis or edema Skin no rashes or lesions noted General Skin Exam: no breakdown Neuro oriented x3, CN's II-XII intact bilaterally, moves all extremities, no focal motor deficits and no sensory deficits noted Sensorium / Orientation: awake, alert, oriented to person and oriented to place Speech: speech normal Psych affect normal Assessment & Plan Assessment/Plan (1) Confusion: PLAN: Plan 1. Confusion-etiology unclear at this point, it is very likely patient has undiagnosed dementia, there is no findings to suggest the patient has had a stroke. It is unclear if the patient would consent to go to a shelter facility, I will have to have a discussion with case management, sr. social media & mobile manager, and the patient's tomorrow, patient states he would like to go home if possible. #2 essential hypertension-patient will remain on his present medications #3 hyperlipidemia-patient is on a statin #4 type 2 diabetes-patient remains on insulin at this time, Accu-Cheks are being carried out with sliding scale insulin coverage. 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
[2023-01-06] MEDS: Tamsulosin HCl 0.4 MG Capsule PO (21:36)
[2023-01-06] MEDS: Atorvastatin Calcium 40 MG Tablet PO (21:36)
[2023-01-06] MEDS: MELATONIN 3 MG TABLET PO (21:36)
[2023-01-06 21:40] VITALS: BP 110/68; PULSE 60; RESP 16; TEMP 36.6; O2SAT 97
[2023-01-07 00:09] LABS: Bedside Glucose 101 mg/dL (74-106)
[2023-01-07 02:26] VITALS: BMI 30.3
[2023-01-07 03:40] VITALS: BP 126/76; PULSE 75; RESP 17; TEMP 36.1; O2SAT 96
[2023-01-07 05:24] LABS: Absolute Lymphocyte Count 1.83 X10^3/uL (0.83-4.51); Absolute Neutrophil Count 6.4 X10^3/uL (2.0-7.7); Basophil# 0.06 X10^3/uL; Basophil% 0.6 % (0-1); Eosinophil# 0.22 X10^3/uL; Eosinophils% 2.4 % (0-5); Hematocrit 40.9 % (40-54); Hemoglobin 13.1 g/dL (13.0-16.5); Lymphocyte # 1.83 X10^3/ul (0.83-4.51); Lymphocyte % 19.8 % (19-41); Mean Corpuscular Hgb 26.7 pg (27.0-32.0); Mean Corpuscular Volume 83.5 fL (80-94); Mean Platelet Vol. 9.1 fl (6.2-12.0); Monocyte# 0.67 X10^3/uL; Monocyte% 7.2 % (0-10); NRBC Flagged by Analyzer 0 % (0-5); Neutrophil # 6.38 X10^3/uL (2.7-7.7); Platelet Count 216 K/mm3 (150-450); RBC Distribution Width CV 14.5 % (11.6-14.6); RBC Distribution Width SD 43.7 fl (35.1-43.9); White Blood Count 9.3 K/mm3 (4.4-11.0)
[2023-01-07 05:40] LABS: International Normalized Ratio 2.2; Prothrombin Time (Protime)PT. 24.8 SECONDS (11.7-14.9)
[2023-01-07 05:52] LABS: ALB/GLOB Ratio 0.9 RATIO (0.9-2.4); AST(SGOT) 13 U/L (15-37); Alanine Aminotransfer ALT/SGPT 18 U/L (16-61); Albumin, Serum 2.9 g/dL (3.2-5.0); Alkaline Phosphatase 90 U/L (45-117); Anion Gap 8 (5-15); BUN 26 mg/dL (7-18); Calcium,Total 8.8 mg/dL (8.5-10.1); Chloride 106 mmol/L (98-107); Creatinine, Serum 1.13 mg/dL (0.70-1.30); EST Glomerular Filtration Rate 67 mL/min (>60); Est Glom Filt Rate - Afr Amer 81 mL/min (>60); Estimated Creatinine Clearance 63.83 ml/min; Globulin 3.1 g/dL (2.2-4.2); Glucose 121 mg/dL (74-106); Potassium 4.1 mmol/L (3.5-5.1); Sodium Level 138 mmol/L (136-145)
[2023-01-07 06:00] VITALS: BMI 38.4
[2023-01-07 07:09] LABS: Bedside Glucose 134 mg/dL (74-106)
[2023-01-07 07:32] VITALS: O2SAT 92
[2023-01-07] MEDS: Cyanocobalamin 500 MCG Tablet 1000 MCG PO (08:12)
[2023-01-07] MEDS: Aspirin 81 MG TAB.CHEW PO (08:12)
[2023-01-07] MEDS: Folic Acid 1 MG Tablet PO (08:12)
[2023-01-07] MEDS: Losartan Potassium 50 MG Tablet PO (08:12)
[2023-01-07] MEDS: Insulin Glargine-YFGN 100 UNIT/ML Pen 12 UNIT SC (08:12)
[2023-01-07 08:13] VITALS: BP 116/70; PULSE 62
[2023-01-07] MEDS: amLODIPine 2.5 MG Tablet PO (08:13)
[2023-01-07] MEDS: Metoprolol(XL)Succ 100 MG Tablet PO (08:13)
[2023-01-07 11:00] VITALS: BP 129/51; PULSE 62; RESP 18; TEMP 36.8
--- NOTE | 2023-01-07 11:37 | CASEMGMT ---
SW called patient's Lorena to discuss d/c planning. Lorena said their daughter in law that works at [facility] ([facility]) said there are no beds at [facility]. Lorena's next choice is [facility]. VERO made a referral to TCU. Lorena did not have any other choices at this time, but she will review the list just in case TCU does not work out. Keily Muniz REVENUE CYCLE MANAGER PATRICIA
[2023-01-07 12:10] LABS: Bedside Glucose 172 mg/dL (74-106)
--- NOTE | 2023-01-07 14:35 | CHAPLAIN ---
Type of Pastoral Visit _x__ Initial Visit ___ Follow-up Visit ___ On-call Visit ___ General Patient Visit ___ Spiritual Assessment ___ Family Conference ___ Bereavement ___ Rapid Response ___ Code Blue ___ Other (describe below) Pastoral Care Referral From _x__ Patient ___ Family ___ Nurse ___ Physician ___ Tile Mason ___ Space Systems Operations Craftsman ___ Other (describe below) Sacrament/Intervention _x__ Active listening ___ Anointing ___ Episcopal ___ Bereavement ___ Communion ___ Elaine exploration ___ ___ Life review _x__ Prayer ___ Reconciliation ___ Sacrament of Sick _x__ Supportive presence ___ Wedding ___ Other (describe below) Pastoral Comments patient is sitting up in chair and alert; pt responds to questions; pt is focused on going home and not wanting to be in hospital; pt identifies himself as member of [employer]; pt welcomes a prayer a prayer never hurt anybody; offer of ongoing support as pt desires
--- NOTE | 2023-01-07 14:51 | CASEMGMT ---
Addendum entered by Keily Muniz 01/07/23 15:20: Patient's Lorena asked SW [facility] and [facility]. Lorena decided not to go with [facility] since they have 1 star. Lorena asked SW to send referrals to [facility] and [facility]. SW asked Tamika d/c city planning engineer to send referrals. Keily GOMEZ Original Note: TCU will not have any beds. SW met with patient and his . SW let both know that TCU will not have a bed available for patient. Patient's Lorena asked SW to check with [facility] ([facility]). Lorena has the SNF list and will look over the list. SW asked Tamika d/c city planning engineer to check with [facility] on bed availability. Keily GOMEZ
--- NOTE | 2023-01-07 15:34 | CASEMGMT ---
Discharge Planning Referrals sent to [facility] and [facility] via [facility]. Tamika Encinas, Discharge Planning Asst
[2023-01-07 16:56] VITALS: BMI 30.3
--- NOTE | 2023-01-07 19:23 | PN.HOSP_ITS ---
Reason for Visit Reason for Visit: Diagnoses Disorientation, unspecified (01/05/23) Subjective Subjective Patient was seen and examined today, he realizes that he will be going to a pen[facility]iary facility, his is getting back with discharge planning and director social welfare to pick a place according to his insurance coverage. Objective Data Objective Data Vital Signs: Vital Signs Temp Pulse Resp BP Pulse Ox O2 Del Method 98.3 F 62 18 129/51 H 92 Room Air 01/07/23 11:00 01/07/23 11:00 01/07/23 11:00 01/07/23 11:00 01/07/23 07:32 01/07/23 14:00 Oxygen Delivery Method Room Air Weight: 104.4 kg Body Mass Index (BMI) 30.3 Intake & Output: Intake and Output for Last 24 Hours 01/05/23 01/06/23 01/07/23 23:59 23:59 23:59 Intake Total 200 / 300 970 / 970 840 / 840 Balance 200 / 300 970 / 970 840 / 840 Lab / Micro Data Result Diagrams: 01/07/23 04:19 01/07/23 04:19 Labs: Laboratory Results - last 24 hr 01/06/23 21:38: POC Glucose 101 01/07/23 04:19: WBC 9.3, RBC 4.90, Hgb 13.1, Hct 40.9, MCV 83.5, MCH 26.7 L, MCHC 32.0, RDW Std Deviation 43.7, RDW Coeff of Nathaniel 14.5, Plt Count 216, MPV 9.1, Immature Gran % (Auto) 1.000 H, Neut % (Auto) 69.0, Lymph % (Auto) 19.8, [place] % (Auto) 7.2, Eos % (Auto) 2.4, Baso % (Auto) 0.6, Absolute Neuts (auto) 6.4, Absolute Lymphs (auto) 1.83, Nucleated RBC % 0 01/07/23 04:19: PT 24.8 H, INR 2.2 01/07/23 04:19: Sodium 138, Potassium 4.1, Chloride 106, Carbon Dioxide 24.0, Anion Gap 8, BUN 26 H, Creatinine 1.13, Estim Creat Clear Calc 63.83, Est GFR (MDRD) Af Amer 81, Est GFR (MDRD) Non-Af 67, BUN/Creatinine Ratio 23.0 H, Glucose 121 H, Calcium 8.8, Total Bilirubin 0.70, AST 13 L, ALT 18, Alkaline Phosphatase 90, Total Protein 6.0 L, Albumin 2.9 L, Globulin 3.1, Albumin/Globulin Ratio 0.9 01/07/23 06:52: POC Glucose 134 H 01/07/23 11:52: POC Glucose 172 H Micro: Microbiology 01/04/23 14:00 Urine, Random Urine Culture - Final Mixed Gram Positive Organisms 01/04/23 12:19 Blood Culture (Wb) - Left Forearm Blood Culture - Preliminary No growth in 48 hours. 01/04/23 11:50 Blood Culture (Wb) - Left Forearm Blood Culture - Preliminary No growth in 48 hours. Physical Exam Narrative alert, no apparent distress, average body habitus and healthy appearing General Appearance: cooperative, well kempt and well developed Orientation / Consciousness: awake, oriented to person and oriented to place HEENT normocephalic, head/scalp atraumatic and moist oral mucous membranes Eyes PERRL, EOMs intact bilaterally and conjunctivae normal Neck supple, no JVD, thyroid normal and no carotid bruits General: trachea midline Resp normal respiratory effort, no retractions, no use of accessory muscles and clear to auscultation bilaterally Auscultation: Negative for rales, rhonchi or wheezes Cardio regular rate, regular rhythm, S1 normal heart sound, S2 normal heart sound, no murmurs, no rub and no gallops GI normal to inspection, nondistended, normoactive bowel sounds, soft to palpation, non-tender and non-distended Extremity no clubbing, cyanosis or edema Skin no rashes or lesions noted General Skin Exam: no breakdown Neuro oriented x3, CN's II-XII intact bilaterally, moves all extremities, no focal motor deficits and no sensory deficits noted Sensorium / Orientation: awake, alert, oriented to person and oriented to place Speech: speech normal Psych affect normal Assessment & Plan Assessment/Plan (1) Confusion: PLAN: Plan 1. Confusion-etiology unclear at this point, it is very likely patient has undiagnosed dementia, there is no findings to suggest the patient has had a stroke. It is planned that the patient will go to a penitentiary facility for at least short-term rehab services. We are attempting placement at this time #2 essential hypertension-patient will remain on his present medications #3 hyperlipidemia-patient is on a statin #4 type 2 diabetes-patient remains on insulin at this time, Accu-Cheks are being carried out with sliding scale insulin coverage. 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
[2023-01-07] MEDS: Tamsulosin HCl 0.4 MG Capsule PO (22:55)
[2023-01-07] MEDS: Atorvastatin Calcium 40 MG Tablet PO (22:57)
[2023-01-07 23:00] VITALS: BP 124/66; PULSE 68; RESP 16; TEMP 36.6; O2SAT 97
[2023-01-07 23:06] LABS: Bedside Glucose 118 mg/dL (74-106)
[2023-01-07 23:17] LABS: Bedside Glucose 126 mg/dL (74-106)
[2023-01-08 02:50] VITALS: BP 121/75; PULSE 74; RESP 16; TEMP 36.7; O2SAT 96
[2023-01-08 05:00] VITALS: BMI 38.4
[2023-01-08 06:00] VITALS: BMI 38.4
[2023-01-08 06:32] LABS: Bedside Glucose 131 mg/dL (74-106)
[2023-01-08 08:59] VITALS: BP 143/64; PULSE 72; RESP 18; TEMP 37.1; O2SAT 96
[2023-01-08 09:44] VITALS: BP 143/64; PULSE 72
[2023-01-08] MEDS: Cyanocobalamin 500 MCG Tablet 1000 MCG PO (09:44)
[2023-01-08] MEDS: Folic Acid 1 MG Tablet PO (09:44)
[2023-01-08] MEDS: amLODIPine 2.5 MG Tablet PO (09:44)
[2023-01-08] MEDS: Losartan Potassium 50 MG Tablet PO (09:44)
[2023-01-08] MEDS: Insulin Glargine-YFGN 100 UNIT/ML Pen 12 UNIT SC (09:44)
[2023-01-08] MEDS: Metoprolol(XL)Succ 100 MG Tablet PO (09:44)
[2023-01-08] MEDS: Aspirin 81 MG TAB.CHEW PO (09:44)
--- NOTE | 2023-01-08 10:04 | CASEMGMT ---
Patient has a Healthcare Living Will and Healthcare Power of Export Documents Clerk on file at [facility]. Patient's Lorena is patient's Healthcare Power of Export Documents Clerk. Keily GOMEZ
--- NOTE | 2023-01-08 10:28 | CASEMGMT ---
[facility]. Awaiting [facility]'s response before calling . Keily Muniz STACKING MACHINE OPERATOR PATRICIA
--- NOTE | 2023-01-08 10:47 | CASEMGMT ---
[facility] also accepted patient. SW called patient's Lorena and let her know this information. Lorena [facility]. SW asked about transport and Lorena was in agreement with SW setting up transport even if not covered by insurance. Lorena then said she has not spoken to any doctors since patient was in the ED. Lorena would like to know what is wrong with patient. SW let Lorena know SW will ask the physician if he can give her a call. Plan: [facility] under skilled level of care. Keily Muniz PSYCHIATRIC AIDE INSTRUCTOR PATRICIA
[2023-01-08] MEDS: Insulin Lispro 100 UNIT/ML INSULN.PEN SC (11:33)
--- NOTE | 2023-01-08 11:47 | PCM.TXEXTCAR ---
Diet Diet Order/Speech Therapy: 01/04/23 18:24 Diet: Cardiac: Calorie-Controlled Food consistency:: Regular Liquid Consistency:: Regular/Thin How many daily calories?: 1999 calorie Routine Orders/Code Status Routine Lab Work: - (Fingerstick blood sugars AC nightly, Humalog subcu per sliding scale: 200-250: 5 units, 251-300: 8 units, 301-350: 12 units) Code Status: Full Code Wound(s) left arm: Wound Type: Abrasion Therapies Weight Bearing: Full weight bearing Physical Therapy: Eval and Treat Occupational Therapy: Eval and Treat Problem/Diagnosis (1) Confusion: Status: Acute Code(s): R41.0 - Disorientation, unspecified Plan 1. Confusion-etiology unclear at this point, it is very likely patient has undiagnosed dementia and/or depression, there is no findings to suggest the patient has had a stroke. It is planned that the patient will go to a [facility] facility for at least short-term rehab services. We are attempting placement at this time. I have elected to place the patient on an antidepressant when he is discharged to an extended care facility along with Aricept #2 essential hypertension-patient will remain on his present medications #3 hyperlipidemia-patient is on a statin #4 type 2 diabetes-patient remains on insulin at this time, Accu-Cheks are being carried out with sliding scale insulin coverage. 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-patient's INR today was 2.2 #6 BPH-patient is on Flomax #7 acute debility-again patient is seeing PT and OT, he will need short-term placement in a [facility] facility #8 possible depression versus early dementia-again I will place the patient on an antidepressant and Aricept when he is transferred to a [facility] facility Total clinical time spent by myself addressing the patient's medical issues, reviewing all of his data, and collaborating with patient's care team: 35 minutes Allergies/Procedures Done in Hospital Allergies propofol Adverse Reaction (Verified 01/04/23 10:58) Other GETS AGGRESSIVE Procedures: None Type of Care/Length of Stay Estimated LOS: Convalescent Care Less Than 30 days Type of Care Needed: Skilled Rehab Potential: Good Prognosis: Good Additional Orders/Day of Discharge H&P will serve as current which was dated: 01/04/23 Day of Discharge: 01/08/23 Dietary and Speech Recommendations Dietitian Recommendations/Changes: RD will adjust diet to [facility] Cardiac diet to manage medical conditions and blood sugars. Discharge Plan Admission Admit Date/Time: 01/05/23 13:38 Primary Reason for Your Visit: Generalized debility, cognitive impairment Attending Provider: Gabriel Giraldo Primary Care Provider: Luis Caldera Consulting Providers: Karen Aly Discharge Orders/Prescriptions Prescriptions: New acetaminophen 325 mg Tablet 650 mg PO Q4H PRN PRN (Reason: Fever, pain -04/23) Qty: 0 0RF melatonin 3 mg Tablet 3 mg PO QHS PRN PRN (Reason: Insomnia) Qty: 1 0RF duloxetine [Cymbalta] 30 mg capsule,delayed release(DR/EC) 30 mg PO UD Qty: 1 0RF Rx Instructions: 1 daily with breakfast for 5 days, then increase to 2 (60 mg) daily with breakfast thereafter donepezil [Aricept] 5 mg tablet 5 mg PO QHS Qty: 1 0RF Rx Instructions: 5 mg nightly x3 weeks, then increase to 10 mg nightly thereafter Continued metoprolol succinate 200 MG tablet 200 mg PO DAILY Label Comments: HYPERTENSION losartan 50 MG tablet 50 mg PO DAILY metformin 500 MG tablet,ER mirela.retention 24 hr 1,000 mg PO BID atorvastatin 40 MG tablet 40 mg PO QHS warfarin [Jantoven] 5 MG tablet 7.5 mg PO SUTUTHFRSA Label Comments: blood thinner tamsulosin 0.4 mg capsule 0.4 mg PO QHS Label Comments: TAKE 1 CAPSULE BY MOUTH EVERYDAY AT BEDTIME warfarin 5 mg tablet 10 mg PO WE Label Comments: 10 MG SATURDAY AND SATURDAY, 7.5 MG ALL OTHER DAYS. PATIENT HAS INR DRAWN BI-WEEKLY. amlodipine 2.5 mg Tablet 2.5 mg PO DAILY 30 Days Qty: 30 0RF insulin glargine [Lantus Solostar U-100 Insulin] 100 UNITS/ML insulin pen 12 unit subcut DAILY Qty: 15 0RF Discontinued insulin lispro [Humalog KwikPen Insulin] 100 UNIT/ML insulin pen See Protocol SQ 4X/DAY Protocol: 6. Sliding Scale Insulin Custom Condition: mg/dl range Dose/Route: Number of Units Condition: 100-200 Dose/Route: 3 Condition: 201-250 Dose/Route: 5 Condition: 251-300 Dose/Route: 8 Condition: 301-350 Dose/Route: 12 Condition: 351-400 Dose/Route: 15 Protocol Text: Custom Sliding Scale Trulicity 1.5 MG/0.5 ML pen injector 1.5 mg SQ GARCIA Rx Instructions: Saturday Referrals / Follow Up: Luis Caldera MD [Primary Care Provider] - Disposition Disposition (needs filled in before D/C Order can be placed): Nursing Home Facility
[2023-01-08 11:58] VITALS: BP 108/70; PULSE 60; RESP 14; TEMP 36.8; O2SAT 96
--- NOTE | 2023-01-08 11:59 | DS.PCM_ITS ---
Providers Date of Admission: 01/05/23 Date of Discharge: 01/08/23 Primary Care Physician: Dr. Luis Caldera MD Reason For Visit: CONFUSION, WEAKNESS Diagnosis Discharge Diagnosis (1) Confusion: Status: Acute Code(s): R41.0 - Disorientation, unspecified Plan 1. Confusion-as a consequence of undiagnosed major depression and or early dementia #2 essential hypertension-patient will remain on his present medications #3 hyperlipidemia-patient is on a statin #4 type 2 diabetes-patient remains on insulin at this time, Accu-Cheks are being carried out with sliding scale insulin coverage. 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-patient's INR today was 2.2 #6 BPH-patient is on Flomax #7 acute debility-again patient is seeing PT and OT, he will need short-term atul cement in a prison facility #8 possible depression versus early dementia-again I will place the patient on an antidepressant and Aricept when he is transferred to a prison facility #9 diabetic neuropathy Total clinical time spent by myself addressing the patient's medical issues, reviewing all of his data, and collaborating with patient's care team: 35 minutes Medications at Discharge Home Medications metoprolol succinate 200 mg tablet,extended release 24 hr 200 mg PO DAILY blood pressure 09/16/13 losartan 50 mg tablet 50 mg PO DAILY blood pressure 03/24/18 metformin 500 mg 24 hr tablet,extended release 1,000 mg PO BID diabetes 03/24/18 atorvastatin 40 mg tablet 40 mg PO QHS cholesterol 05/22/18 warfarin 5 mg tablet (Jantoven) 7.5 mg PO SUTUTHFRSA anticoagulant 05/22/18 tamsulosin 0.4 mg capsule 0.4 mg PO QHS PROSTATE 03/02/22 warfarin 5 mg tablet 10 mg PO MOWE 03/02/22 amlodipine 2.5 mg tablet 2.5 mg PO DAILY 30 days #30 tabs 07/11/22 insulin glargine 100 unit/mL (3 mL) subcutaneous pen (Lantus Solostar U-100 Insulin) 12 unit (0.12 mL) subcut DAILY diabetes #15 mL 07/11/22 acetaminophen 325 mg tablet 650 mg (2 x 325 mg) PO Q4H PRN PRN Fever, pain 1- 04/23 #0 tabs 01/08/23 donepezil 5 mg tablet (Aricept) 5 mg PO QHS #1 TAB 01/08/23 duloxetine 30 mg capsule,delayed release (Cymbalta) 30 mg PO UD #1 cap 01/08/23 melatonin 3 mg tablet 3 mg PO QHS PRN PRN Insomnia #1 TAB 01/08/23 Hospital Course Operations None Procedures None Summary of Care Provided Minutes Spent on Discharge: 32 Hospital Course: 77-year-old white male was seen in the emergency room at [facility] after being brought in for evaluation of confusion over the past 2 weeks prior to being seen in the emergency room. On further discussion with the patient's , it was noted that the patient had become increasingly less connected to people outside his home and spent most of his day in the house watching TV. Patient had become more unsteady on his feet. Work-up in the emergency room included a chest x-ray which did not show any abnormalities, CBC was unremarkable, INR was elevated at 3.1, patient's BUN was slightly elevated a t 23. CT of the brain was obtained which showed stable chronic ischemic and atrophic changes. Patient was admitted to PCU, he was seen by PT and OT, and he underwent an MRI of the brain which showed no evidence of ischemic stroke. He was seen in teleconference by neurology who felt that the patient did not have an ischemic stroke and that he might have undiagnosed dementia. I carried out a lengthy conversation with the patient's and patient's PCP, patient's PCP states that the patient's overall demeanor had changed over the last year and that on a Mini-Mental status exam during his office visits he scored high indicating no evidence of dementia. 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 Patient agreed to go to an extended care facility for short-term rehab services, I felt that the patient most probably has undiagnosed dementia or possibly severe depression, I discussed this with the patient's and I elected to place the patient on an antidepressant and Aricept on his discharge to a prison facility for inpatient rehab services. On 01/08/2023, patient was seen and examined: On examination he appeared in good health and spirits. Vital signs as documented. Skin warm and dry and without overt rashes. Neck without JVD, neck was supple, trachea midline, thyroid was normal. Lungs clear bilaterally, normal air movement was noted. Heart exam notable for regular rhythm, normal sounds and absence of murmurs, rubs or gallops. Abdomen unremarkable and without evidence of organomegaly, masses, or abdominal aortic enlargement. Bowel sounds are present, abdomen is not distended. Extremities nonedematous, no cyanosis was noted, no clubbing was noted. Neuro: Cranial nerves II through XII are grossly intact, no focal motor deficits were noted, sensation to light touch and pinprick intact, motor exam 5/5 throughout. Psych: Patient is alert and oriented as to person and place, he does not seem anxious, he does have flat affect. On 01/08/2023, patient was seen and examined and felt to be in stable condition for discharge to an extended care facility for inpatient rehab services. Weight / BMI Weight Weight: 132 kg Body Mass Index (BMI) 38.4 ABG / Lab / Microbiology Data 01/07/23 04:19 01/07/23 04:19 Laboratory: Laboratory Results - last 24 hr 01/07/23 11:52: POC Glucose 172 H 01/07/23 17:03: POC Glucose 118 H 01/07/23 22:53: POC Glucose 126 H 01/08/23 06:08: POC Glucose 131 H Microbiology: Microbiology 01/04/23 14:00 Urine, Random Urine Culture - Final Mixed Gram Positive Organisms 01/04/23 12:19 Blood Culture (Wb) - Left Forearm Blood Culture - Preliminary No growth in 48 hours. 01/04/23 11:50 Blood Culture (Wb) - Left Forearm Blood Culture - Preliminary No growth in 48 hours. Meaningful Use Info Meaningful Use Diagnoses (Choose all that apply): None applicable Discharge Plan Admission Admit Date/Time: 01/05/23 13:38 Primary Reason for Your Visit: Generalized debility, cognitive impairment Attending Provider: Gabriel Giraldo Primary Care Provider: Luis Caldera Consulting Providers: Karen Aly Discharge Orders/Prescriptions Prescriptions: New acetaminophen 325 mg Tablet 650 mg PO Q4H PRN PRN (Reason: Fever, pain 1-10/10) Qty: 0 0RF melatonin 3 mg Tablet 3 mg PO QHS PRN PRN (Reason: Insomnia) Qty: 1 0RF duloxetine [Cymbalta] 30 mg capsule,delayed release(DR/EC) 30 mg PO UD Qty: 1 0RF Rx Instructions: 1 daily with breakfast for 5 days, then increase to 2 (60 mg) daily with breakfast thereafter donepezil [Aricept] 5 mg tablet 5 mg PO QHS Qty: 1 0RF Rx Instructions: 5 mg nightly x3 weeks, then increase to 10 mg nightly thereafter Continued metoprolol succinate 200 MG tablet 200 mg PO DAILY Patient Comments: HYPERTENSION losartan 50 MG tablet 50 mg PO DAILY metformin 500 MG tablet,ER mirela.retention 24 hr 1,000 mg PO BID atorvastatin 40 MG tablet 40 mg PO QHS warfarin [Jantoven] 5 [facility] Patient Comments: blood thinner tamsulosin 0.4 mg capsule 0.4 mg PO QHS Patient Comments: TAKE 1 CAPSULE BY MOUTH EVERYDAY AT BEDTIME warfarin 5 mg tablet 10 mg PO Patient Comments: 10 MG SATURDAY AND SATURDAY, 7.5 MG ALL OTHER DAYS. PATIENT HAS INR DRAWN BI- WEEKLY. amlodipine 2.5 mg Tablet 2.5 mg PO DAILY 30 Days Qty: 30 0RF insulin glargine [Lantus Solostar U-100 Insulin] 100 UNITS/ML insulin pen 12 unit subcut DAILY Qty: 15 0RF Discontinued insulin lispro [Humalog KwikPen Insulin] 100 UNIT/ML insulin pen See Protocol SQ 4X/DAY Protocol: 6. Sliding Scale Insulin Custom Condition: mg/dl range Dose/Route: Number of Units Condition: 100-200 Dose/Route: 3 Condition: 201-250 Dose/Route: 5 Condition: 251-300 Dose/Route: 8 Condition: 301-350 Dose/Route: 12 Condition: 351-400 Dose/Route: 15 Protocol Text: Custom Sliding Scale Trulicity 1.5 MG/0.5 ML pen injector 1.5 mg SQ GARCIA Rx Instructions: Saturday Referrals / Follow Up: Luis Caldera MD [Primary Care Provider] - Disposition Disposition (needs filled in before D/C Order can be placed): [facility] Facility Charges/Coding Visit Charges Inpatient E&M: 81529 Disch Hosp >30min
[2023-01-08 12:20] LABS: Bedside Glucose 201 mg/dL (74-106)
--- NOTE | 2023-01-08 12:47 | CASEMGMT ---
Patient will be discharged to [facility]. No COVID test needed. SW completed a 7000 in [employer]. 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 Plan: d/c to [facility] under skilled level of care on a convalescent stay. Keily Muniz FILTERATION OPERATOR PATRICIA
--- NOTE | 2023-01-08 12:47 | CASEMGMT ---
Discharge Planning Discharge orders, signed med list, and transport time sent to [facility] via [facility]. Patients will be transferred at by [facility] via wheelchair. SW, patient, his , and nursing all notified. Tamika Encinas, Discharge Planning Asst.
--- NOTE | 2023-01-08 13:20 | PHA.DC.MR ---
Pharmacy Service has performed discharge medication reconciliation for this patient. The patient's discharge medication list was reviewed for discrepancies and discrepancies were resolved. Home Medications metoprolol succinate 200 mg tablet,extended release 24 hr 200 mg PO DAILY blood pressure 09/16/13 losartan 50 mg tablet 50 mg PO DAILY blood pressure 03/24/18 metformin 500 mg 24 hr tablet,extended release 1,000 mg PO BID diabetes 03/24/18 atorvastatin 40 mg tablet 40 mg PO QHS cholesterol 05/22/18 warfarin 5 mg tablet (Jantoven) 7.5 mg PO SUTUTHFRSA anticoagulant 05/22/18 tamsulosin 0.4 mg capsule 0.4 mg PO QHS PROSTATE 03/02/22 warfarin 5 mg tablet 10 mg PO MOWE 03/02/22 amlodipine 2.5 mg tablet 2.5 mg PO DAILY 30 days #30 tabs 07/11/22 insulin glargine 100 unit/mL (3 mL) subcutaneous pen (Lantus Solostar U-100 Insulin) 12 unit (0.12 mL) subcut DAILY diabetes #15 mL 07/11/22 acetaminophen 325 mg tablet 650 mg PO Q4H PRN PRN Fever, pain -04/23 #0 tabs 01/08/23 donepezil 5 mg tablet (Aricept) 5 mg PO QHS #1 TAB 01/08/23 duloxetine 30 mg capsule,delayed release (Cymbalta) 30 mg PO UD #1 cap 01/08/23 melatonin 3 mg tablet 3 mg PO QHS PRN PRN Insomnia #1 TAB 01/08/23
--- NOTE | 2023-01-08 13:33 | NURSING ---
called report to [facility] @ [id number], spoke with Rosaura
== END 2023-01-08 15:00 | disposition skilled nursing facility (03) | DRG 884 ==
LOC: ED 16:04 → PCU 01-05 13:40
PROVIDERS: Admitting Provider Family Medicine; Emergency Provider Emergency Medicine; PCP Family Medicine; Visit Provider Internal Medicine
DX: F03.90 Unspecified dementia, unspecified severity, without behavioral disturbance, psychotic disturbance, mood disturbance, and anxiety (principal); E11.42 Type 2 diabetes mellitus with diabetic polyneuropathy; Z79.4 Long term (current) use of insulin; I10 Essential (primary) hypertension; F32.A Depression, unspecified; E78.5 Hyperlipidemia, unspecified; I25.2 Old myocardial infarction; R00.1 Bradycardia, unspecified; E66.9 Obesity, unspecified; Z95.4 Presence of other heart-valve replacement; R41.0 Disorientation, unspecified; R53.1 Weakness; F41.1 Generalized anxiety disorder; N40.0 Benign prostatic hyperplasia without lower urinary tract symptoms; R53.81 Other malaise; R29.6 Repeated falls; Z68.30 Body mass index [BMI] 30.0-30.9, adult; Z79.01 Long term (current) use of anticoagulants; Z79.82 Long term (current) use of aspirin; Z79.84 Long term (current) use of oral hypoglycemic drugs; Z79.85 Long-term (current) use of injectable non-insulin antidiabetic drugs; Z79.899 Other long term (current) drug therapy; Z86.711 Personal history of pulmonary embolism; Z86.16 Personal history of COVID-19
CPT/HCPCS: 36415; 36600; 70450; 70551; 71045; 80048; 80053; 80061; 80076; 81001; 82140; 82607; 82746; 82803; 82962; 83036; 83735; 84145; 84443; 84484; 85025; 85610; 86780; 87040; 87086; 87088; 93005; 94668; 94762; 97110; 97116; 97162; 97165; 97530; 97535; 97802; 99284; A4216

== ENCOUNTER 2023-01-21 08:20 | Inpatient (IN) | payer MEDICARE, OTHER, SELFPAY ==
[2023-01-21] VITALS (22 sets, daily range): BP systolic 76–133; BP diastolic 42–74; PULSE 69–99; RESP 20–27; TEMP 35.8–36.6; O2SAT 92–99; BMI 28.9; BMI 28.8
--- NOTE | 2023-01-21 09:00 | CT_ITS ---
STUDY: CT BRAIN WITHOUT CONTRAST REASON FOR EXAM: Male, 77 years old. Altered LOC. Confusion. RADIATION DOSAGE (If Supplied By Facility): CTDIvol = ( 44.99 ) mGy, DLP = ( 812.98 ) mGycm TECHNIQUE: Transaxial CT imaging of the brain was performed without administration of intravenous contrast material. Individualized dose optimization techniques were used for this CT. COMPARISON: Comparison is made with prior study dated January 04, 2023. FINDINGS: Normal soft tissue structures. Normal calvarium. There is mild cerebral atrophy with widening of the extra-axial spaces and ventricular dilatation. There are areas of decreased attenuation within the white matter tracts of the supratentorial brain, consistent with microvascular disease changes. Normal basal ganglia and thalami. Normal brainstem. Normal cerebellum. There is no intracranial hemorrhage. There are no findings of an acute ischemic infarction. Atherosclerotic plaque formation of the vertebral arteries and cavernous portions of the internal carotid arteries bilaterally. Stable partial opacification of the right maxillary sinus. Partial opacification of the right frontal sinus. CT/Brain/Head without Contrast IMPRESSION: Chronic involutional changes of the brain. Partial opacification of the right maxillary and right frontal sinus Electronically Signed: Ravindra Sierra MD at 10:43 EDT ,
--- NOTE | 2023-01-21 09:00 | EKG12_ITS ---
Test Reason : SYNCOPE Blood Pressure : / mmHG Vent. Rate : 090 BPM Atrial Rate : 090 BPM P-R Int : 202 ms QRS Dur : 142 ms QT Int : 392 ms P-R-T Axes : 084 -74 062 degrees QTc Int : 479 ms Normal sinus rhythm Left axis deviation Right bundle branch block Abnormal ECG Confirmed by ANISA COLBERT, YECENIA ([id number]), sports editor SOFIA CAMERON ([id number]) on 01/22/2023 11:44:26 AM Referred By: Confirmed By:YECENIA LANGE MD
--- NOTE | 2023-01-21 09:02 | EDS_ITS ---
HPI History of Present Illness Chief Complaint: Syncope Informant: spouse/S.O., EMS and SNF Narrative Narrative: Patient sent from [facility] where he has been for several weeks for short-term rehab. Started getting confused within the past month or so, was living at home with his prior to that. Today apparently became unresponsive/syncopal with the nurses at the facility and according to staff prior to sending him here, had some black tarry stool. History is extremely limited from the patient he is able to speak but does not remember anything about events this morning and denies having pain anywhere right now. The states that when they sat him up earlier he complained about back pain, but he denies it right now. 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 Upper gastrointestinal bleed Ureterolithiasis Valvular heart disease Home Medications metoprolol succinate 200 mg tablet,extended release 24 hr 200 mg PO DAILY blood pressure 09/16/13 [History Last Taken 01/04/23] losartan 50 mg tablet 50 mg PO DAILY blood pressure 03/24/18 [History Last Taken 01/04/23] metformin 500 mg 24 hr tablet,extended release 1,000 mg PO BID diabetes 03/24/18 [History Last Taken 01/04/23] atorvastatin 40 mg tablet 40 mg PO QHS cholesterol 05/22/18 [History Last Taken 01/03/23] warfarin 5 mg tablet (Jantoven) 7.5 mg PO SUTUTHFRSA anticoagulant 05/22/18 [History Last Taken 01/04/23] tamsulosin 0.4 mg capsule 0.4 mg PO QHS PROSTATE 03/02/22 [History Last Taken 01/03/23] warfarin 5 mg tablet 10 mg PO MOWE 03/02/22 [History Last Taken 01/02/23] amlodipine 2.5 mg tablet 2.5 mg PO DAILY 30 days #30 tabs 07/11/22 [Rx Last Taken 01/04/23] insulin glargine 100 unit/mL (3 mL) subcutaneous pen (Lantus Solostar U-100 Insulin) 12 unit (0.12 mL) subcut DAILY diabetes #15 mL 07/11/22 [Rx Last Taken 01/04/23] acetaminophen 325 mg tablet 650 mg (2 x 325 mg) PO Q4H PRN PRN Fever, pain 1- 04/23 #0 tabs 01/08/23 [Rx Last Taken Unknown] donepezil 5 mg tablet (Aricept) 5 mg PO QHS #1 TAB 01/08/23 [Rx Last Taken Unknown] duloxetine 30 mg capsule,delayed release (Cymbalta) 30 mg PO UD #1 cap 01/08/23 [Rx Last Taken Unknown] melatonin 3 mg tablet 3 mg PO QHS PRN PRN Insomnia #1 TAB 01/08/23 [Rx Last Taken Unknown] Allergy/AdvReac Type Severity Reaction Status Date / Time propofol AdvReac Other Verified 01/21/23 08:23 Family History Mother Heart disease Diabetes Hypertension Father Heart disease Surgical History H/O aortic valve repair History of foot surgery History of thoracic aortic aneurysm repair Hx of abdominal surgery Social History (Updated 01/21/23 @ 09:[address] Dandy Sauer MD) housing: alf current occupational status: retired Smoking Status: Never smoker alcohol intake: never substance use type: does not use ROS ROS ED Review of Systems ROS Unobtainable: due to mental condition and due to mental status Cardiovascular Cardiovascular: Denies chest pain Respiratory/Chest Respiratory/Chest: Denies dyspnea Gastrointestinal Gastrointestinal: Denies abdominal pain or nausea Musculoskeletal Musculoskeletal: Denies neck pain Neurologic Neurologic: Denies headache(s) EXAM Physical Exam Const Vital Signs: 01/21/23 08:21 01/21/23 08:25 Temperature 96.4 F L Temperature Source Temporal Pulse Rate 99 Respiratory Rate 20 H Respiratory Effort Normal Non-Labored Respiratory Pattern Tachypnea Blood Pressure 109/72 Blood Pressure Mean 84 Pulse Ox 97 Oxygen Delivery Method Room Air Positive well nourished and well developed Constitutional Narrative: Appears malaised, but eyes open to voice, maintains level of alertness, no distress General Appearance ED: well developed and NAD HEENT Reports moist mucous membranes normocephalic and atraumatic Eyes PERRL and EOMs intact bilaterally Neck full ROM and supple Chest Wall inspection of chest normal and palpation of chest normal Chest Narrative: Healed surgical incision midline chest Resp normal respiratory effort and clear to auscultation bilaterally Cardio regular rate, regular rhythm and no murmurs Rate: tachycardic and other Other Details: Occasionally irregular GI non-tender and non-distended Auscultation: normoactive bowel sounds Palpation: soft Back/Spine no CVA tenderness Back/Spine Narrative: With assistance sitting up, patient reports no pain and there is no areas of tenderness. General Back: other FROM Extremity normal to inspection General Extremety ED: Yes edema; Negative for pulses abnormal or tenderness General Extremity: edema bilateral lower extremity Details: mild; Negative for pulses abnormal Neuro CN's II-XII intact bilaterally and no sensory deficits noted Neuro Narrative: Oriented to person only. Disoriented to age, month, year, place including the state. Downgoing toes bilaterally [place] Coma Scale: document GCS findings To Voice Obeys Commands Confused 13 Sensorium / Orientation: awake, alert and orientation impaired Motor Exam: general weakness and clonus absent Skin no rashes or lesions noted and no wounds MDM MDM MDM Narrative Medical decision making narrative: I did a rectal exam, it is melanotic with no gross blood, and Hemoccult positive after that test result returned from the lab. Also consistent with upper GI bleeding is his significantly elevated BUN and his hemoglobin of 10.7 down from 13.1 last month. He is anticoagulated on warfarin, still awaiting PT/INR to return, but in the meantime giving him IV fluids to keep him from becoming hypotensive given that his blood pressure is borderline at 102/70, IV Protonix bolus, followed by IV Protonix drip. Patient has not been vomiting here, will given prophylactic Zofran given that this is likely an upper GI bleed. Discussed with JOHN Hackett, hospitalist, and I discussed with the at length. She was counseled on blood transfusion pros and cons, which I suspect he will need but does not necessarily need emergently at this time, he is typed and screened, she consents to blood if he should needed, and given his borderline hemodynamics and clinically appears very ill, and being anticoagulated I think admitted into the ICU is most proper at this time. GI requested octreotide which will be added. INR returned at 4.2, will order vitamin K 5 mg IV. Lab Data Attestation: I reviewed the patient's lab results. Labs: Laboratory Results - last 24 hr 01/21/23 08:40 WBC 22.4 H RBC 3.96 L Hgb 10.7 L Hct 34.3 L MCV 86.6 MCH 27.0 MCHC 31.2 L RDW Std Deviation 46.6 H RDW Coeff of Nathaniel 14.7 H Plt Count 389 MPV 10.7 Immature Gran % (Auto) 2.000 H Neut % (Auto) 87.8 H Lymph % (Auto) 7.5 L [place] % (Auto) 2.4 Eos % (Auto) 0.0 Baso % (Auto) 0.3 Absolute Neuts (auto) 19.7 H Absolute Lymphs (auto) 1.69 Nucleated RBC % 0 PT 41.4 H INR 4.2 H* Sodium 138 Potassium 5.2 H Chloride 109 H Carbon Dioxide 12.0 L Anion Gap 17 H BUN 125 H* Creatinine 1.99 H Estim Creat Clear Calc 36.25 Est GFR (MDRD) Af Amer 42 L Est GFR (MDRD) Non-Af 35 L BUN/Creatinine Ratio 62.8 H Glucose 248 H Lactic Acid 7.9 H* Calcium 9.7 Total Bilirubin 0.30 AST 9 L ALT 25 Alkaline Phosphatase 76 Troponin I High Sens 23 Total Protein 5.4 L Albumin 2.7 L Globulin 2.7 Albumin/Globulin Ratio 1.0 Blood Type A POSITIVE Antibody Screen NEGATIVE Rhythm Strip Rhythm Strip: Sinus Rhythm Rate: 90 Ectopy: PAC(s) EKG Initial EKG: Attestation: I personally reviewed and interpreted this EKG as follows: Interpretation: Sinus Rhythm, No Acute Injury Pattern, RBBB and Non- Specific ST Changes Prior EKG tracings: available for review Prior: Unchanged Management Discussion w/another healthcare provider: Hospitalist and Preventive Maintenance Coordinator (JOHN) Critical Care Time Critical Care Time: Yes Critical care time (excluding procedures): 30-74 minutes (33 min), Including time spent:, Discussing w/Patient &/or Family/It Help Desk Technician, Discussing w/Consultants, Arranging Admission or Transfer and Performing Direct Patient Care at Bedside Discharge Plan Dx/Rx/DC Orders Clinical Impression: Acute encephalopathy, Syncope, Supratherapeutic INR, ABLA (acute blood loss anemia), Upper gastrointestinal bleeding, Warfarin-induced coagulopathy Disposition Disposition: [facility] Capacity Capacity Assessment Tool Can the patient make a choice & communicate that choice?: No Can the patient understand benefits, risks and alternatives?: No Can the patient make a logical, rational choice?: No Is there an impending, emergent risk to the patient?: Yes Is there a Surrogate Available?: Yes i.e. close relative (spouse, child, parent, sibling)?: Yes ()
--- NOTE | 2023-01-21 09:30 | RAD_ITS ---
STUDY: X-RAY CHEST REASON FOR EXAM: Male, 77 years old. Confused TECHNIQUE: Single AP portable view of the chest. COMPARISON: Comparison is made with prior study January 04, 2023. FINDINGS: Electrodes are seen. The lungs are clear and expanded. There is no demonstrated pleural abnormality. Sternal cerclage wires and vascular clips are present from a prior sternotomy and coronary artery bypass graft procedure (CABG). Normal mediastinum and francesca. Normal visualized pulmonary arteries. There is atherosclerotic tortuosity of the aortic arch and descending thoracic aorta. There are diffuse degenerative changes of the visualized thoracic spine. Normal visualized ribs, clavicles, and shoulders. There is no demonstrated abnormality of the visualized soft tissue structures of the upper abdomen. RAD/Chest 1 View (Portable) IMPRESSION: No acute abnormality is seen. Electronically Signed: Ravindra Sierra MD at 10:30 EDT ,
[2023-01-21 09:32] LABS: Absolute Lymphocyte Count 1.69 X10^3/uL (0.83-4.51); Absolute Neutrophil Count 19.7 X10^3/uL (2.0-7.7); Basophil# 0.06 X10^3/uL; Basophil% 0.3 % (0-1); Eosinophil# 0.01 X10^3/uL; Hematocrit 34.3 % (40-54); Hemoglobin 10.7 g/dL (13.0-16.5); Lymphocyte # 1.69 X10^3/ul (0.83-4.51); Lymphocyte % 7.5 % (19-41); Mean Corp Hgb Conc 31.2 g/dL (32-36); Mean Corpuscular Volume 86.6 fL (80-94); Mean Platelet Vol. 10.7 fl (6.2-12.0); Monocyte# 0.53 X10^3/uL; Monocyte% 2.4 % (0-10); NRBC Flagged by Analyzer 0 % (0-5); Neutrophil # 19.68 X10^3/uL (2.7-7.7); Neutrophil % 87.8 % (47-70); Platelet Count 389 K/mm3 (150-450); RBC Distribution Width CV 14.7 % (11.6-14.6); RBC Distribution Width SD 46.6 fl (35.1-43.9); Red Blood Count 3.96 M/mm3 (4.6-6.2); White Blood Count 22.4 K/mm3 (4.4-11.0)
[2023-01-21 09:49] LABS: Lactic Acid 7.9 mmol/L (0.4-1.9)
[2023-01-21 09:54] LABS: AST(SGOT) 9 U/L (15-37); Alanine Aminotransfer ALT/SGPT 25 U/L (16-61); Albumin, Serum 2.7 g/dL (3.2-5.0); Alkaline Phosphatase 76 U/L (45-117); Anion Gap 17 (5-15); BUN 125 mg/dL (7-18); BUN/Creat Ratio 62.8 RATIO (10-20); Calcium,Total 9.7 mg/dL (8.5-10.1); Chloride 109 mmol/L (98-107); Creatinine, Serum 1.99 mg/dL (0.70-1.30); EST Glomerular Filtration Rate 35 mL/min (>60); Est Glom Filt Rate - Afr Amer 42 mL/min (>60); Estimated Creatinine Clearance 36.25 ml/min; Globulin 2.7 g/dL (2.2-4.2); Glucose 248 mg/dL (74-106); Potassium 5.2 mmol/L (3.5-5.1); Protein, Total 5.4 g/dL (6.4-8.2); Sodium Level 138 mmol/L (136-145); Troponin-I HS 23 pg/mL (3.0-78.0)
[2023-01-21 09:57] LABS: Prothrombin Time (Protime)PT. 41.4 SECONDS (11.7-14.9)
[2023-01-21 10:12] LABS: International Normalized Ratio 4.2
--- NOTE | 2023-01-21 10:35 | NURSING ---
PCU [facility] GI BLEED, SYNCOPE
--- NOTE | 2023-01-21 11:00 | NURSING ---
CV ICU 202
[2023-01-21] MEDS: Lactated Ringers 1,000 ML 999 ML IV (11:13)
--- NOTE | 2023-01-21 11:15 | ED.RN ---
DIFFICULT INSERTION OF GOMES CATHETER. NOW HAS 12 TAJIK.
[2023-01-21 11:21] LABS: Bacteria 0 SEEN /hpf (None Seen); Mucous, Urine 0 SEEN /hpf (<or=2+); Red Blood Cells-Urine 0 SEEN /hpf (0-5)
--- NOTE | 2023-01-21 11:27 | NURSING ---
DR VILLEGAS IN ER
[2023-01-21 11:45] LABS: Color, Urine Yellow (Yellow); Glucose, Dipstick 100 mg/dl (Normal); Ketone-Dipstick 15 mg/dl (Negative); Leukocyte Esterase-Dipstick Negative /ul (Negative); Nitrite-Dipstick Negative (Negative); Occult Blood-Urine Negative /ul (Negative); Protein-Dipstick 15 mg/dl (Negative); Urine Bilirubin Dipstick 1 mg/dL (Negative); Urine Clarity Clear (Clear); Urine Urobilinogen Normal (Normal)
[2023-01-21 11:47] LABS: Squamous Epithelial Cells - UA 0-5 SEEN /hpf (0-5); White Blood Cells 0-5 SEEN /hpf (0-5)
--- NOTE | 2023-01-21 11:56 | HP.PCM.HOS_ITS ---
HPI - General General Date of Admission: 01/21/23 Date of Service: 01/21/23 Chief Complaint: Patient was unresponsive in the morning. Had large black tarry stool. HPI Narrative RICHARD ROY, is a 77 M gentleman was brought from [facility] to residential for syncopal episodes and black tarry stool. Prior to that he was admitted between 01/05 to 01/08/23 for confusion and generalized weakness, stroke was ruled out and was sent to residential there. Patient is not a good historian. As per the nursing report, patient had multiple short syncopal episodes in the morning after he had a large black tarry stool. Patient had been having dark stool for last couple days in residential. Patient does not remember himself from dementia/depression. His was also present in ED and said residential does not tell her much. Patient is states that he was dizzy and lightheaded in the morning. Dizziness has resolved. BP was low 190/72, heart rate 99, tachypneic 20/min. H&H 10.7/34%. Mild leukocytosis. Platelet count normal. Lactic acid 7.9. 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 Upper gastrointestinal bleed Ureterolithiasis Valvular heart disease Home Medications metoprolol succinate 200 mg tablet,extended release 24 hr 200 mg PO DAILY blood pressure 09/16/13 [History Last Taken 01/20/23] losartan 50 mg tablet 50 mg PO DAILY blood pressure 03/24/18 [History Last Taken 01/20/23] atorvastatin 40 mg tablet 40 mg PO QHS cholesterol 05/22/18 [History Last Taken 01/20/23] warfarin 5 mg tablet (Jantoven) 7.5 mg PO SUTUWETHFRSA anticoagulant 05/22/18 [History Last Taken 01/20/23] tamsulosin 0.4 mg capsule 0.4 mg PO QHS PROSTATE 03/02/22 [History Last Taken 01/20/23] warfarin 5 mg tablet 10 mg PO MO BLOOD THINNER 03/02/22 [History Last Taken 01/02/23] amlodipine 2.5 mg tablet 2.5 mg PO DAILY BP 30 days #30 tabs 07/11/22 [Rx Last Taken 01/20/23] insulin glargine 100 unit/mL (3 mL) subcutaneous pen (Lantus Solostar U-100 Insulin) 12 unit (0.12 mL) subcut DAILY diabetes #15 mL 07/11/22 [Rx Last Taken 01/20/23] acetaminophen 325 mg tablet 650 mg (2 x 325 mg) PO Q4H PRN PRN PAIN AND FEVER #0 tabs 01/08/23 [Rx Last Taken 01/19/23] donepezil 5 mg tablet (Aricept) 5 mg PO QHS DEMENTIA #1 TAB 01/08/23 [Rx Last Taken 01/20/23] melatonin 3 mg tablet 3 mg PO QHS PRN PRN Insomnia #1 TAB 01/08/23 [Rx Last Taken Unknown] cholecalciferol (vitamin D3) 1,250 mcg (50,000 unit) tablet 1,250 mcg PO MO SUPPLEMENT 01/21/23 [History Last Taken 01/14/23] donepezil 10 mg tablet 10 mg PO QHS DEMENTIA 01/21/23 [History Last Taken 01/20/23] duloxetine 60 mg capsule,delayed release (Cymbalta) 60 mg PO DAILY DEPRESSION 01/21/23 [History Last Taken 01/20/23] insulin lispro 100 unit/mL subcutaneous pen (Humalog KwikPen (U-100) Insulin) See Protocol subcut ACHS DM 01/21/23 [History Last Taken 01/21/23] metformin 1,000 mg tablet 1,000 mg PO BID DM 01/21/23 [History Last Taken 01/20/23] Allergy/AdvReac Type Severity Reaction Status Date / Time propofol AdvReac Other Verified 01/21/23 08:23 Family History Mother Heart disease Diabetes Hypertension Father Heart disease Surgical History H/O aortic valve repair History of foot surgery History of thoracic aortic aneurysm repair Hx of abdominal surgery Social History housing: residential current occupational status: retired Smoking Status: Never smoker alcohol intake: never substance use type: does not use ROS ROS Narrative 14 system ROS limited as patient does not remember well possible early dementia. Constitutional: Reports fatigue and weakness. No fever. HEENT: Reports systems reviewed and no addt'l complaints, except as documented Respiratory/Chest: No acute shortness of breath or respiratory distress or wheezing. CVS: Syncopal episodes. No chest pain/pressure Gastrointestinal: Denies coffee ground emesis, or nausea. No abdominal pain. Rest as described in HPI Genitourinary: Denies burning urination or new urinary tract symptoms Musculoskeletal: Chronic disequilibrium and arthritis. Denies acute joint pain or limited range of motion. No acute injury Neurologic: Denies seizure-like symptoms. skin: No ulcer. No rash Endocrinology: Reports systems reviewed and no addt'l complaints, except as documented Hematologic/Lymphatic: Reports systems reviewed and no addt'l complaints, except as documented Rest 14 ROS are negative except as mentioned in HPI Vital Signs Vital Signs Vital Signs: 01/21/23 08:21 01/21/23 08:25 01/21/23 10:53 Temperature 96.4 F L Temperature Source Temporal Pulse Rate 99 83 Respiratory Rate 20 H 27 H Respiratory Effort Normal Non-Labored Respiratory Pattern Tachypnea Blood Pressure 109/72 105/54 L Blood Pressure Mean 84 71 Pulse Ox 97 93 Oxygen Delivery Method Room Air Room Air 01/21/23 11:32 Temperature 97.8 F Temperature Source Temporal Pulse Rate 83 Respiratory Rate 23 H Respiratory Effort Respiratory Pattern Blood Pressure 133/55 H Blood Pressure Mean 81 Pulse Ox 93 Oxygen Delivery Method Room Air Weight Weight: 219 lb 2.232 oz Body Mass Index (BMI) 28.9 Physical Exam Narrative General: Alert, Oriented x3, Cooperative. BMI 28.9 KG per square meter. HEENT: Atraumatic, PERRLA, EOMI, Normocephalic Oral: Oral mucosa dry. Dry crust on the posterior tongue. No Gingival or Mucosal Lesions/ Ulcerations Neck: Supple, No JVD, Negative Carotid Bruits Lungs: Air entry diminished in bilateral lung bases. No crepitation/rhonchi Cardiovascular: Regular rate, Regular Rhythm, Normal S1, Normal S2, pansystolic murmur over cardiac apex. Abdomen: Bowel Sounds Present, Soft, Non Tender, Non-Distended : No renal angle tenderness. No suprapubic tenderness. Extremities: No edema, Capillary Refill Less than 3 Seconds Skin: No rashes, No breakdown Musculoskeletal: Muscle strength 4+/5 at knee and hip joints. ROM restricted. No Tenderness to Palpation of Joints or Extremities Neurological: Cranial nerves II-XII grossly intact, DTR 2+/4 and Symmetrical, Neuro grossly intact Psych/Mental Status: Flat affect. Amnesia/cognitive deficit. Results Lab / Micro Data 01/21/23 08:40 01/21/23 08:40 Labs: Laboratory Results - last 24 hr 01/21/23 08:40: WBC 22.4 H, RBC 3.96 L, Hgb 10.7 L, Hct 34.3 L, MCV 86.6, MCH 27.0, MCHC 31.2 L, RDW Std Deviation 46.6 H, RDW Coeff of Nathaniel 14.7 H, Plt Count 389, MPV 10.7, Immature Gran % (Auto) 2.000 H, Neut % (Auto) 87.8 H, Lymph % (Auto) 7.5 L, [place] % (Auto) 2.4, Eos % (Auto) 0.0, Baso % (Auto) 0.3, Absolute Neuts (auto) 19.7 H, Absolute Lymphs (auto) 1.69, Nucleated RBC % 0, PT 41.4 H, INR 4.2 H*, Sodium 138, Potassium 5.2 H, Chloride 109 H, Carbon Dioxide 12.0 L, Anion Gap 17 H, BUN 125 H*, Creatinine 1.99 H, Estim Creat Clear Calc 36.25, Est GFR (MDRD) Af Amer 42 L, Est GFR (MDRD) Non-Af 35 L, BUN/Creatinine Ratio 62.8 H , Glucose 248 H, Lactic Acid 7.9 H*, Calcium 9.7, Total Bilirubin 0.30, AST 9 L, ALT 25, Alkaline Phosphatase 76, Troponin I High Sens 23, Total Protein 5.4 L, Albumin 2.7 L, Globulin 2.7, Albumin/Globulin Ratio 1.0, Blood Type A POSITIVE, Antibody Screen NEGATIVE 01/21/23 11:00: Urine Color Yellow, Urine Clarity Clear, Urine pH 5.0, Ur Specific [place] 1.020, Urine Protein 15 H, Urine Glucose (UA) 100 H, Urine Ketones 15 H, Urine Occult Blood Negative, Urine Nitrite Negative, Urine Bilirubin 1 H, Urine Urobilinogen Normal, Ur Leukocyte Esterase Negative, Urine RBC 0 SEEN, Urine WBC 0-5 SEEN, Ur Squamous Epith Cells 0-5 SEEN, Urine Bacteria 0 SEEN, Urine Mucus 0 SEEN Micro: Microbiology 01/21/23 09:15 Stool Stool Occult Blood (KLAUS) - Final Occult Blood Positive Rhythm Strip Rhythm Strip: Sinus Rhythm Rate: 90 Ectopy: PAC(s) Radiology Impression Brain CT 01/21/23 09:00 IMPRESSION: Chronic involutional changes of the brain. Partial opacification of the right maxillary and right frontal sinus Electronically Signed: Ravindra Sierra MD at 10:43 EDT , Chest X-Ray 01/21/23 09:30 IMPRESSION: No acute abnormality is seen. Electronically Signed: Ravindra Sierra MD at 10:30 EDT , Assessment & Plan Assessment/Plan (1) Upper gastrointestinal bleeding: (2) ABLA (acute blood loss anemia): PLAN: Plan This is a 77-year-old gentleman being admitted from [facility] for multiple episodes of syncope and upper GI bleed 1. Acute blood loss anemia and hypotension due to upper GI bleed: Patient is being admitted in ICU. His baseline hemoglobin is 13.1 which dropped to 10.7. BP was low 108/70 with baseline 143/64. Patient was resuscitated with IV fluid last blood pressure 133/55. 2 units PRBC typed and crossmatched. Keep NPO. Continue IV fluid Ringer lactate. Patient started on IV pantoprazole drip after bolus and octreotide drip. GI consulted. H&H monitoring. Does not require blood transfusion at present. Patient has history of gastric ulcer in the past when he had EGD in early . Had last colonoscopy less than a year was normal as per the . His medical care is under [facility]. 2 Syncopal episode most likely due to hypotension/GI bleed: As per the nursing staff patient had multiple shorts, brief syncopal episodes with intermittent confusion in between. Patient had echo in June 2022 reported EF 65% moderate concentric LVH. Mild MR. Does not need repeat echo. Orthostatic BP tomorrow AM. 3. Essential hypertension and dyslipidemia-hold antihypertensive medications. Statin when oral is allowed. 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 #5 DVT on warfarin with supratherapeutic INR: Patient on warfarin. INR 4.2. Vitamin K 5 mg IV given in ED. Repeat INR tomorrow AM. #6 BPH-patient is on Flomax, on hold #7 acute debility, disequilibrium: PT and OT ordered. #8 possible depression versus early dementia: Patient is on antidepressant and Aricept. Will resume once oral is allowed. VTE prophylaxis: Pharmacological prophylaxis contraindicated in view of GI bleed, acute blood loss anemia and supratherapeutic INR. Bilateral SCDs. Living will/advanced directive/end of life care: Patient does have living will or advanced directive. His is power of insurance defense attorney for health. After discussion of benefits/risks procedures involved with full code, DNR CC arrest and DNR CC, the patient and his opted for full code. Patient does want artificial life support including intubation, tube feed, ventilator and/chest compression, central venous catheter, vasopressor and DC shock if needed Total time spent in [id number] encounter in discussion of advanced directive 17 minutes. Microbiology Past 72 Hours 01/21/23 09:15 Stool Stool Occult Blood (KLAUS) - Final Occult Blood Positive Laboratory Results 01/21/23 08:40: WBC 22.4 H, RBC 3.96 L, Hgb 10.7 L, Hct 34.3 L, MCV 86.6, MCH 27.0, MCHC 31.2 L, RDW Std Deviation 46.6 H, RDW Coeff of Nathaniel 14.7 H, Plt Count 389, MPV 10.7, Immature Gran % (Auto) 2.000 H, Neut % (Auto) 87.8 H, Lymph % (Auto) 7.5 L, [place] % (Auto) 2.4, Eos % (Auto) 0.0, Baso % (Auto) 0.3, Absolute Neuts (auto) 19.7 H, Absolute Lymphs (auto) 1.69, Nucleated RBC % 0, PT 41.4 H, INR 4.2 H*, Sodium 138, Potassium 5.2 H, Chloride 109 H, Carbon Dioxide 12.0 L, Anion Gap 17 H, BUN 125 H*, Creatinine 1.99 H, Estim Creat Clear Calc 36.25, Est GFR (MDRD) Af Amer 42 L, Est GFR (MDRD) Non-Af 35 L, BUN/Creatinine Ratio 62.8 H , Glucose 248 H, Lactic Acid 7.9 H*, Calcium 9.7, Total Bilirubin 0.30, AST 9 L, ALT 25, Alkaline Phosphatase 76, Troponin I High Sens 23, Total Protein 5.4 L, Albumin 2.7 L, Globulin 2.7, Albumin/Globulin Ratio 1.0, Blood Type A POSITIVE, Antibody Screen NEGATIVE 01/21/23 11:00: Urine Color Yellow, Urine Clarity Clear, Urine pH 5.0, Ur Specific [place] 1.020, Urine Protein 15 H, Urine Glucose (UA) 100 H, Urine Ketones 15 H, Urine Occult Blood Negative, Urine Nitrite Negative, Urine Bilirubin 1 H, Urine Urobilinogen Normal, Ur Leukocyte Esterase Negative, Urine RBC 0 SEEN, Urine WBC 0-5 SEEN, Ur Squamous Epith Cells 0-5 SEEN, Urine Bacteria 0 SEEN, Urine Mucus 0 SEEN Charges/Coding Visit Charges Inpatient E&M: 63274 Init Hosp L3 Procedures Hospitalists Procedures: 13187 Advncd Care Plan 30 Min
--- NOTE | 2023-01-21 11:56 | ED.RN ---
report called to ICU nurse [id number]
[2023-01-21 13:00] LABS: Magnesium 2.1 mg/dL (1.6-2.6)
[2023-01-21 13:01] LABS: Phosphorus 4.6 mg/dL (2.5-4.9)
[2023-01-21 13:29] LABS: Reflex Lactate? Y
[2023-01-21] MEDS: Lactated Ringers 1,000 ML 100 ML IV (13:29)
[2023-01-21 14:08] LABS: Lactic Acid 6.7 mmol/L (0.4-1.9)
[2023-01-21] MEDS: Insulin Lispro 100 UNIT/ML INSULN.PEN SC ×3 (14:40→22:20)
[2023-01-21 14:52] LABS: Bedside Glucose 203 mg/dL (74-106)
--- NOTE | 2023-01-21 19:02 | EX.PCM.CON.G ---
HPI Consult Data Date of Consult: 01/21/23 HPI Narrative Reason for Consultation: GI bleed HPI Narrative: RICHARD ROY, is a 77 M who presents with melena goals from [facility]. He is on warfarin for history of DVT and atrial fibrillation. Patient was sent from [facility] where he has been for several weeks for short-term rehab. He was admitted between 01/05 to 01/08/23 for confusion and generalized weakness, stroke was ruled out and was sent to [facility]. Started getting confused within the past month or so, was living at home with his prior to that. Today apparently became unresponsive/syncopal with the nurses at the facility and according to staff prior to sending him here, had some black tarry stool. History is extremely limited from the patient he is able to speak but does not remember anything about events this morning and denies having pain anywhere right now. The states that when they sat him up earlier he complained about back pain, but he denies it right now. His hemoglobin was down to 10.9 from 13.1 on discharge. 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 Upper gastrointestinal bleed Ureterolithiasis Valvular heart disease Home Medications metoprolol succinate 200 mg tablet,extended release 24 hr 200 mg PO DAILY blood pressure 09/16/13 [History Last Taken 01/20/23] losartan 50 mg tablet 50 mg PO DAILY blood pressure 03/24/18 [History Last Taken 01/20/23] atorvastatin 40 mg tablet 40 mg PO QHS cholesterol 05/22/18 [History Last Taken 01/20/23] warfarin 5 mg tablet (Jantoven) 7.5 mg PO SUTUWETHFRSA anticoagulant 05/22/18 [History Last Taken 01/20/23] tamsulosin 0.4 mg capsule 0.4 mg PO QHS PROSTATE 03/02/22 [History Last Taken 01/20/23] warfarin 5 mg tablet 10 mg PO MO BLOOD THINNER 03/02/22 [History Last Taken 01/02/23] amlodipine 2.5 mg tablet 2.5 mg PO DAILY BP 30 days #30 tabs 07/11/22 [Rx Last Taken 01/20/23] insulin glargine 100 unit/mL (3 mL) subcutaneous pen (Lantus Solostar U-100 Insulin) 12 unit (0.12 mL) subcut DAILY diabetes #15 mL 07/11/22 [Rx Last Taken 01/20/23] acetaminophen 325 mg tablet 650 mg (2 x 325 mg) PO Q4H PRN PRN PAIN AND FEVER #0 tabs 01/08/23 [Rx Last Taken 01/19/23] donepezil 5 mg tablet (Aricept) 5 mg PO QHS DEMENTIA #1 TAB 01/08/23 [Rx Last Taken 01/20/23] melatonin 3 mg tablet 3 mg PO QHS PRN PRN Insomnia #1 TAB 01/08/23 [Rx Last Taken Unknown] cholecalciferol (vitamin D3) 1,250 mcg (50,000 unit) tablet 1,250 mcg PO MO SUPPLEMENT 01/21/23 [History Last Taken 01/14/23] donepezil 10 mg tablet 10 mg PO QHS DEMENTIA 01/21/23 [History Last Taken 01/20/23] duloxetine 60 mg capsule,delayed release (Cymbalta) 60 mg PO DAILY DEPRESSION 01/21/23 [History Last Taken 01/20/23] insulin lispro 100 unit/mL subcutaneous pen (Humalog KwikPen (U-100) Insulin) See Protocol subcut ACHS DM 01/21/23 [History Last Taken 01/21/23] metformin 1,000 mg tablet 1,000 mg PO BID DM 01/21/23 [History Last Taken 01/20/23] Allergy/AdvReac Type Severity Reaction Status Date / Time propofol AdvReac Other Verified 01/21/23 08:23 Family History Mother Heart disease Diabetes Hypertension Father Heart disease Surgical History H/O aortic valve repair History of foot surgery History of thoracic aortic aneurysm repair Hx of abdominal surgery Social History housing: [facility] current occupational status: retired Smoking Status: Never smoker alcohol intake: never substance use type: does not use ROS ROS Narrative 14 system ROS limited as patient does not remember well possible early dementia. Constitutional: Reports fatigue and weakness. No fever. HEENT: Reports systems reviewed and no addt'l complaints, except as documented Respiratory/Chest: No acute shortness of breath or respiratory distress or wheezing. CVS: Syncopal episodes. No chest pain/pressure Gastrointestinal: Denies coffee ground emesis, or nausea. No abdominal pain. Rest as described in HPI Genitourinary: Denies burning urination or new urinary tract symptoms Musculoskeletal: Chronic disequilibrium and arthritis. Denies acute joint pain or limited range of motion. No acute injury Neurologic: Denies seizure-like symptoms. skin: No ulcer. No rash Endocrinology: Reports systems reviewed and no addt'l complaints, except as documented Hematologic/Lymphatic: Reports systems reviewed and no addt'l complaints, except as documented Rest 14 ROS are negative except as mentioned in HPI Physical Exam Narrative General: Alert, Oriented x3, Cooperative. BMI 28.9 KG per square meter. HEENT: Atraumatic, PERRLA, EOMI, Normocephalic Oral: Oral mucosa dry. Dry crust on the posterior tongue. No Gingival or Mucosal Lesions/ Ulcerations Neck: Supple, No JVD, Negative Carotid Bruits Lungs: Air entry diminished in bilateral lung bases. No crepitation/rhonchi Cardiovascular: Regular rate, Regular Rhythm, Normal S1, Normal S2, pansystolic murmur over cardiac apex. Abdomen: Bowel Sounds Present, Soft, Non Tender, Non-Distended : No renal angle tenderness. No suprapubic tenderness. Extremities: No edema, Capillary Refill Less than 3 Seconds Skin: No rashes, No breakdown Musculoskeletal: Muscle strength 4+/5 at knee and hip joints. ROM restricted. No Tenderness to Palpation of Joints or Extremities Neurological: Cranial nerves II-XII grossly intact, DTR 2+/4 and Symmetrical, Neuro grossly intact Psych/Mental Status: Flat affect. Amnesia/cognitive deficit. Lab / Micro Data 01/21/23 08:40 01/21/23 08:40 Labs: Laboratory Results - last 24 hr 01/21/23 08:40: WBC 22.4 H, RBC 3.96 L, Hgb 10.7 L, Hct 34.3 L, MCV 86.6, MCH 27.0, MCHC 31.2 L, RDW Std Deviation 46.6 H, RDW Coeff of Nathaniel 14.7 H, Plt Count 389, MPV 10.7, Immature Gran % (Auto) 2.000 H, Neut % (Auto) 87.8 H, Lymph % (Auto) 7.5 L, [place] % (Auto) 2.4, Eos % (Auto) 0.0, Baso % (Auto) 0.3, Absolute Neuts (auto) 19.7 H, Absolute Lymphs (auto) 1.69, Nucleated RBC % 0, PT 41.4 H, INR 4.2 H*, Sodium 138, Potassium 5.2 H, Chloride 109 H, Carbon Dioxide 12.0 L, Anion Gap 17 H, BUN 125 H*, Creatinine 1.99 H, Estim Creat Clear Calc 36.25, Est GFR (MDRD) Af Amer 42 L, Est GFR (MDRD) Non-Af 35 L, BUN/Creatinine Ratio 62.8 H, Glucose 248 H, Lactic Acid 7.9 H*, Calcium 9.7, Phosphorus 4.6, Magnesium 2.1, Total Bilirubin 0.30, AST 9 L, ALT 25, Alkaline Phosphatase 76, Troponin I High Sens 23, Total Protein 5.4 L, Albumin 2.7 L, Globulin 2.7, Albumin/Globulin Ratio 1.0, Blood Type A POSITIVE, Antibody Screen NEGATIVE 01/21/23 11:00: Urine Color Yellow, Urine Clarity Clear, Urine pH 5.0, Ur Specific [place] 1.020, Urine Protein 15 H, Urine Glucose (UA) 100 H, Urine Ketones 15 H, Urine Occult Blood Negative, Urine Nitrite Negative, Urine Bilirubin 1 H, Urine Urobilinogen Normal, Ur Leukocyte Esterase Negative, Urine RBC 0 SEEN, Urine WBC 0-5 SEEN, Ur Squamous Epith Cells 0-5 SEEN, Urine Bacteria 0 SEEN, Urine Mucus 0 SEEN 01/21/23 13:10: Lactic Acid 6.7 H* 01/21/23 14:34: POC Glucose 203 H Micro: Microbiology 01/21/23 09:15 Stool Stool Occult Blood (KLAUS) - Final Occult Blood Positive Rhythm Strip Rhythm Strip: Sinus Rhythm Rate: 90 Ectopy: PAC(s) Radiology Impression Brain CT 01/21/23 09:00 IMPRESSION: Chronic involutional changes of the brain. Partial opacification of the right maxillary and right frontal sinus Electronically Signed: Ravindra Sierra MD at 10:43 EDT , Chest X-Ray 01/21/23 09:30 IMPRESSION: No acute abnormality is seen. Electronically Signed: Ravindra Sierra MD at 10:30 EDT , Assessment & Plan Assessment/Plan (1) Upper gastrointestinal bleeding: PLAN: 77-year-old gentleman with history atrial fibrillation and DVT on Coumadin who presents with possible upper GI bleed. He has significant leukocytosis and lactic acidosis from unknown cause. He is being seen and treated by hospital service. If patient continues to be stable then he will undergo EGD tomorrow. Recommend continue octreotide and PPI drip. The plan was explained to the patient and the patient's at the bedside. They were explained alternatives, risk, benefits including outstanding bleeding, infection, sepsis, perforation, need for emergency to . He will have an ASA of 3 for the procedure. Recommend to check H&H every 6 hours. Charges/Coding Visit Charges Inpatient E&M: 94897 Init Hosp L3
[2023-01-21 19:23] LABS: Bedside Glucose 175 mg/dL (74-106)
[2023-01-21 20:09] LABS: Hematocrit 28.4 % (40-54); Hemoglobin 8.9 g/dL (13.0-16.5)
--- NOTE | 2023-01-21 21:22 | EKG12_ITS ---
Test Reason : HME Blood Pressure : / mmHG Vent. Rate : 080 BPM Atrial Rate : 092 BPM P-R Int : 214 ms QRS Dur : 136 ms QT Int : 420 ms P-R-T Axes : 089 -60 048 degrees QTc Int : 484 ms AV dissociation Right bundle branch block Left anterior fascicular block Bifascicular block Abnormal ECG Confirmed by ANISA COLBERT, YECENIA ([id number]), editor school photograph SOFIA CAMERON ([id number]) on 02/04/2023 12:21:36 PM Referred By: Confirmed By:YECENIA LANGE MD
[2023-01-21 22:30] LABS: Bedside Glucose 168 mg/dL (74-106)
[2023-01-22] VITALS (29 sets, daily range): BP systolic 90–135; BP diastolic 39–85; PULSE 40–85; RESP 13–24; TEMP 36–36.8; O2SAT 93–98; BMI 29.2
[2023-01-22] MEDS: Furosemide 20 MG/2 ML VIAL IV (01:02)
[2023-01-22] MEDS: 0.9% Saline Lock 10 ML Syringe IV (01:03)
--- NOTE | 2023-01-22 01:06 | NURSING ---
First unit PRBCs completed, 20mg Lasix IVP given as ordered;pt is to rest [id number] before starting second unit of blood.
--- NOTE | 2023-01-22 06:03 | EKG12_ITS ---
Test Reason : RHYTHM CHANGE Blood Pressure : / mmHG Vent. Rate : 060 BPM Atrial Rate : 089 BPM P-R Int : 216 ms QRS Dur : 142 ms QT Int : 454 ms P-R-T Axes : 093 -55 054 degrees QTc Int : 454 ms Atrial tachycardia with block Left anterior fascicular block Bifascicular block Abnormal ECG When compared with ECG of 22-JAN-2023 06:03, MANUAL COMPARISON REQUIRED, DATA IS UNCONFIRMED Confirmed by ANISA COLBERT, YECENIA ([id number]), electronic news gathering editor SOFIA CAMERON ([id number]) on 02/04/2023 12:25:30 PM Referred By: Confirmed By:YECENIA LANGE MD
--- NOTE | 2023-01-22 06:03 | EKG12_ITS ---
Test Reason : RHYTHM CHANGE Blood Pressure : / mmHG Vent. Rate : 071 BPM Atrial Rate : 090 BPM P-R Int : 000 ms QRS Dur : 138 ms QT Int : 452 ms P-R-T Axes : 000 -57 054 degrees QTc Int : 491 ms Sinus rhythm 3:2 AV block Right bundle branch block Left anterior fascicular block Bifascicular block Abnormal ECG When compared with ECG of 21-JAN-2023 21:26, MANUAL COMPARISON REQUIRED, DATA IS UNCONFIRMED Confirmed by ANISA COLBERT, YECENIA ([id number]), tape editor SOFIA CAMERON ([id number]) on 02/06/2023 9:49:05 AM Referred By: Confirmed By:YECENIA LANGE MD
[2023-01-22] MEDS: Lactated Ringers 1,000 ML 100 ML IV (06:37)
[2023-01-22] MEDS: Insulin Lispro 100 UNIT/ML INSULN.PEN SC ×5 (06:39→21:05)
[2023-01-22 06:41] LABS: Bedside Glucose 183 mg/dL (74-106)
--- NOTE | 2023-01-22 06:54 | NURSING ---
RA lead for tele repositioned to posterior shoulder, chest hair clipped away in preparation for transcutaneous pacing if needed as pt is dropping QRS complexes with increased frequency. Repeat ekg at 0615 still reads 2nd degree AVB, type 2.
[2023-01-22 06:56] LABS: Absolute Lymphocyte Count 1.33 X10^3/uL (0.83-4.51); Absolute Neutrophil Count 18.3 X10^3/uL (2.0-7.7); Basophil# 0.05 X10^3/uL; Basophil% 0.2 % (0-1); Eosinophil# 0.15 X10^3/uL; Eosinophils% 0.7 % (0-5); Hematocrit 30.8 % (40-54); Hemoglobin 10.2 g/dL (13.0-16.5); Lymphocyte # 1.33 X10^3/ul (0.83-4.51); Lymphocyte % 5.9 % (19-41); Mean Corp Hgb Conc 33.1 g/dL (32-36); Mean Corpuscular Hgb 28.1 pg (27.0-32.0); Mean Corpuscular Volume 84.8 fL (80-94); Mean Platelet Vol. 10.1 fl (6.2-12.0); Monocyte# 1.79 X10^3/uL; NRBC Flagged by Analyzer 0.1 % (0-5); Neutrophil # 18.34 X10^3/uL (2.7-7.7); Neutrophil % 81.9 % (47-70); POSITIVE DIFFERENTIAL YES; Platelet Count 239 K/mm3 (150-450); RBC Distribution Width CV 15.5 % (11.6-14.6); RBC Distribution Width SD 46.7 fl (35.1-43.9); Red Blood Count 3.63 M/mm3 (4.6-6.2); White Blood Count 22.4 K/mm3 (4.4-11.0)
[2023-01-22 06:59] LABS: Differential Indicated SCAN CRITERIA MET
[2023-01-22 07:16] LABS: Anisocytosis 1+
[2023-01-22 07:17] LABS: Polychromasia 1+
[2023-01-22 07:18] LABS: Anion Gap 8 (5-15); BUN 123 mg/dL (7-18); BUN/Creat Ratio 63.7 RATIO (10-20); Calcium,Total 8.8 mg/dL (8.5-10.1); Chloride 116 mmol/L (98-107); Creatinine, Serum 1.93 mg/dL (0.70-1.30); EST Glomerular Filtration Rate 36 mL/min (>60); Est Glom Filt Rate - Afr Amer 44 mL/min (>60); Estimated Creatinine Clearance 37.37 ml/min; Glucose 200 mg/dL (74-106); Potassium 4.4 mmol/L (3.5-5.1); Sodium Level 144 mmol/L (136-145)
[2023-01-22 07:19] LABS: Magnesium 1.4 mg/dL (1.6-2.6); Phosphorus 3.5 mg/dL (2.5-4.9)
[2023-01-22 07:46] LABS: International Normalized Ratio 1.3; Prothrombin Time (Protime)PT. 16.1 SECONDS (11.7-14.9)
--- NOTE | 2023-01-22 08:19 | PCM.PN.HOSP ---
Reason for Visit Reason for Visit: Diagnoses Acute posthemorrhagic anemia (01/21/23) Gastrointestinal hemorrhage, unspecified (01/21/23) Subjective Subjective Follow-up for upper GI bleed and Mobitz type II block Objective Data Objective Data Vital Signs: Vital Signs Temp Pulse Resp BP Pulse Ox O2 Del Method O2 Flow Rate 96.8 F L 66 14 114/63 98 Room Air 2 01/22/23 08:00 01/22/23 08:00 01/22/23 08:00 01/22/23 08:00 01/22/23 08:00 01/22/23 08:00 01/21/23 15:00 Oxygen Flow Rate (L/min) 2 Oxygen Delivery Method Room Air Weight: 218 lb 4.122 oz Body Mass Index (BMI) 28.8 Intake & Output: Intake and Output for Last 24 Hours 01/20/23 01/21/23 01/22/23 23:59 23:59 23:59 Intake Total 3076.84 / 3076.84 1139.58 / 1139.58 Output Total 1350 / 1350 1380 / 1380 Balance 1726.84 / 1726.84 -240.42 / -240.42 Lab / Micro Data 01/22/23 06:45 01/22/23 06:45 Labs: Laboratory Results - last 24 hr 01/21/23 08:40: WBC 22.4 H, RBC 3.96 L, Hgb 10.7 L, Hct 34.3 L, MCV 86.6, MCH 27.0, MCHC 31.2 L, RDW Std Deviation 46.6 H, RDW Coeff of Nathaniel 14.7 H, Plt Count 389, MPV 10.7, Immature Gran % (Auto) 2.000 H, Neut % (Auto) 87.8 H, Lymph % (Auto) 7.5 L, Mason % (Auto) 2.4, Eos % (Auto) 0.0, Baso % (Auto) 0.3, Absolute Neuts (auto) 19.7 H, Absolute Lymphs (auto) 1.69, Nucleated RBC % 0, PT 41.4 H, INR 4.2 H*, Sodium 138, Potassium 5.2 H, Chloride 109 H, Carbon Dioxide 12.0 L, Anion Gap 17 H, BUN 125 H*, Creatinine 1.99 H, Estim Creat Clear Calc 36.25, Est GFR (MDRD) Af Amer 42 L, Est GFR (MDRD) Non-Af 35 L, BUN/Creatinine Ratio 62.8 H, Glucose 248 H, Lactic Acid 7.9 H*, Calcium 9.7, Phosphorus 4.6, Magnesium 2.1, Total Bilirubin 0.30, AST 9 L, ALT 25, Alkaline Phosphatase 76, Troponin I High Sens 23, Total Protein 5.4 L, Albumin 2.7 L, Globulin 2.7, Albumin/Globulin Ratio 1.0, Blood Type A POSITIVE, Antibody Screen NEGATIVE, Crossmatch See Detail 01/21/23 11:00: Urine Color Yellow, Urine Clarity Clear, Urine pH 5.0, Ur Specific [place] 1.020, Urine Protein 15 H, Urine Glucose (UA) 100 H, Urine Ketones 15 H, Urine Occult Blood Negative, Urine Nitrite Negative, Urine Bilirubin 1 H, Urine Urobilinogen Normal, Ur Leukocyte Esterase Negative, Urine RBC 0 SEEN, Urine WBC 0-5 SEEN, Ur Squamous Epith Cells 0-5 SEEN, Urine Bacteria 0 SEEN, Urine Mucus 0 SEEN 01/21/23 13:10: Lactic Acid 6.7 H* 01/21/23 14:34: POC Glucose 203 H 01/21/23 19:03: POC Glucose 175 H 01/21/23 20:00: Hgb 8.9 L, Hct 28.4 L 01/21/23 22:12: POC Glucose 168 H 01/22/23 06:23: POC Glucose 183 H 01/22/23 06:45: WBC 22.4 H, RBC 3.63 L, Hgb 10.2 L, Hct 30.8 L, MCV 84.8, MCH 28.1, MCHC 33.1 D, RDW Std Deviation 46.7 H, RDW Coeff of Nathaniel 15.5 H, Plt Count 239, MPV 10.1, Immature Gran % (Auto) 3.300 H, Neut % (Auto) 81.9 H, Lymph % (Auto) 5.9 L, Mason % (Auto) 8.0, Eos % (Auto) 0.7, Baso % (Auto) 0.2, Absolute Neuts (auto) 18.3 H, Absolute Lymphs (auto) 1.33, Nucleated RBC % 0.1, Diff Path Review May foll, Polychromasia 1+, Anisocytosis 1+, Sodium 144, Potassium 4.4, Chloride 116 H, Carbon Dioxide 20.0 L, Anion Gap 8, BUN 123 H*, Creatinine 1.93 H, Estim Creat Clear Calc 37.37, Est GFR (MDRD) Af Amer 44 L, Est GFR (MDRD) Non-Af 36 L, BUN/Creatinine Ratio 63.7 H, Glucose 200 H, Calcium 8.8, Phosphorus 3.5, Magnesium 1.4 L 01/22/23 07:27: PT 16.1 H, INR 1.3 Micro: Microbiology 01/21/23 09:15 Stool Stool Occult Blood (KLAUS) - Final Occult Blood Positive Radiography Diagnostic Testing: Radiology Impression Brain CT 01/21/23 09:00 IMPRESSION: Chronic involutional changes of the brain. Partial opacification of the right maxillary and right frontal sinus Electronically Signed: Ravindra Sierra MD at 10:43 EDT , Chest X-Ray 01/21/23 09:30 IMPRESSION: No acute abnormality is seen. Electronically Signed: Ravindra Sierra MD at 10:30 EDT , Rhythm Strip Rhythm Strip: Sinus Rhythm Rate: 90 Ectopy: PAC(s) Physical Exam Narrative Seen and examined. Discussed with the nursing staff. Patient is started having irregular heartbeat after midnight, initially A-fib on cardiac care unit nurse. After that about 5 AM patient started having Mobitz type II AV block EKG was done. Patient himself does not have symptoms of shortness of breath chest pain pressure or tightness. General: Alert, Oriented x3, Cooperative. Intermittently gets confused. BMI 28.9 KG per square meter. HEENT: Atraumatic, PERRLA, EOMI, Normocephalic Oral: Oral mucosa moist. No Gingival or Mucosal Lesions/ Ulcerations Neck: Supple, No JVD, Negative Carotid Bruits Lungs: Air entry diminished in bilateral lung bases. No crepitation/rhonchi Cardiovascular: Regular rate, Regular Rhythm, Normal S1, Normal S2, pansystolic murmur over cardiac apex. Abdomen: Bowel Sounds Present, Soft, Non Tender, Non-Distended : No renal angle tenderness. No suprapubic tenderness. Extremities: No edema, Capillary Refill Less than 3 Seconds Skin: No rashes, No breakdown Musculoskeletal: Muscle strength 4+/5 at knee and hip joints. ROM restricted. No Tenderness to Palpation of Joints or Extremities Neurological: Cranial nerves II-XII grossly intact, DTR 2+/4 and Symmetrical, Neuro grossly intact Psych/Mental Status: Flat affect. Amnesia/cognitive deficit. Assessment & Plan Assessment/Plan (1) Upper gastrointestinal bleeding: (2) ABLA (acute blood loss anemia): PLAN: Plan This is a 77-year-old gentleman being admitted from [facility] for multiple episodes of syncope and upper GI bleed 1. Acute blood loss anemia and hypotension due to upper GI bleed: Patient is being admitted in ICU. His baseline hemoglobin is 13.1 which dropped to 10.7. BP was low 108/70 with baseline 143/64. Patient was resuscitated with IV fluid last blood pressure 133/55. 2 units PRBC typed and crossmatched. Keep NPO. Continue IV fluid Ringer lactate. Patient started on IV pantoprazole drip after bolus and octreotide drip. GI consulted. H&H monitoring. Patient has history of gastric ulcer in the past when he had EGD in early 1999'. Had last colonoscopy less than a year was normal as per the . His medical care is under [facility]. 01/22: Hemoglobin dropped to 8.9. Patient had 2 units of PRBC transfusion and repeat hemoglobin 10.2. Octreotide discontinued as mentioned below. 2 Syncopal episode most likely due to hypotension/GI bleed: As per the nursing staff patient had multiple shorts, brief syncopal episodes with intermittent confusion in between. Patient had echo in June 2022 reported EF 65% moderate concentric LVH. Mild MR. Orthostatic BP when patient is stable 3. Transient A-fib and Mobitz type II, second-degree AV block: Patient is started having irregular heartbeat initially A-fib postmidnight and then about 5 AM Mobitz type II AV block. Initial EKG was normal sinus rhythm admission H&P. Second EKG at 9:26 PM shows sinus rhythm with second-degree Mobitz type II block but there was 2 dropped heartbeat in EKG. radiation monitor shows heart rate slowed down to 48 to 60/min. EKG in the morning about 6 AM today shows sinus rhythm with second-degree Mobitz type II block, RBBB, LAFB bifascicular block. Patient has history of bifascicular block. I talked to the patient's and informed her about the update. Patient has history of ascending aortic aneurysm and had that repaired along with aortic valve in [facility]. His chief ii dispatcher is Dr. Huston in [facility]. I think this is most probably due to start of the octreotide drip as patient was in sinus normal rhythm at time of admission. Octreotide discontinued. Hand Screen Printer consulted. 2D echo ordered. 3. Essential hypertension and dyslipidemia-hold antihypertensive medications. Statin when oral is allowed. Blood pressure has recovered to 114/63 but patient still has weak radial pulse. Carotid pulses good. Hold antihypertensive medications. 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 #5 DVT on warfarin with supratherapeutic INR: Patient on warfarin. INR 4.2. Vitamin K 5 mg IV given in ED. Repeat INR tomorrow AM. #6 BPH-patient is on Flomax, on hold #7 acute debility, disequilibrium: PT and OT ordered. #8 possible depression versus early dementia: Patient is on antidepressant and Aricept. Will resume once oral is allowed. 9. Lactic acidosis mostly due to hypotension and hypoperfusion: Lactic acid has decreased. I do not think patient has suspected or confirmed focus of infection. Therefore sepsis or septic shock is ruled out. VTE prophylaxis: Pharmacological prophylaxis contraindicated in view of GI bleed, acute blood loss anemia and supratherapeutic INR. Bilateral SCDs. Living will/advanced directive/end of life care: Patient does have living will or advanced directive. His is power of claim attorney for health. After discussion of benefits/risks procedures involved with full code, DNR CC arrest and DNR CC, the patient and his opted for full code. Patient does want artificial life support including intubation, tube feed, ventilator and/chest compression, central venous catheter, vasopressor and DC shock if needed Charges/Coding Visit Charges Inpatient E&M: 51201 Subs Hosp L3
--- NOTE | 2023-01-22 08:24 | ECHOCS_ITS ---
Reason For Study: ARRYTHMIA Procedure This was a 2D Doppler, Color Flow transthoracic echocardiogram. The study was technically difficult. Contrast injection was performed. Exam performed portable in ICU/CCU. Left Ventricle Normal left ventricle. The estimated ejection fraction is 55-60 %. Right Ventricle Normal right ventricle. Normal systolic function. Atria Normal left atrium. Normal right atrium. Mitral Valve There is mild mitral annular calcification. Trivial mitral valve insufficiency. Tricuspid Valve Normal tricuspid valve. Aortic Valve Mild diffuse aortic valve calcification. Pulmonic Valve The pulmonic valve is not well visualized. Great Vessels Normal aortic root. Pericardium/Pleural No pericardial effusion. Medication Diluted definity 2ml given slow IV push to enhance endocardial definition. MMode/2D Measurements & Calculations LVOT diam: 2.0 cm Ao root diam: 3.3 cm LAV(MOD-sp2): 29.4 ml LVOT area: 3.1 cm2 Doppler Measurements & Calculations MV E max mansoor: 109.5 cm/sec MV V2 max: 134.7 cm/sec Ao V2 max: 212.1 cm/sec MV max P.3 mmHg Ao max P.0 mmHg MV V2 mean: 82.1 cm/sec Ao V2 mean: 127.5 cm/sec MV mean P.5 mmHg Ao mean P.2 mmHg MV V2 VTI: 20.5 cm Ao V2 VTI: 41.5 cm MVA(VTI): 3.9 cm2 AV (velocity ratio): 0.62 CONCHIS(I,D): 1.9 cm2 CONCHIS(V,D): 2.0 cm2 LV V1 max: 137.2 cm/sec SV(LVOT): 80.1 ml PA V2 max: 130.8 cm/sec LV V1 max P.6 mmHg PA V2 mean: 83.1 cm/sec LV V1 mean P.1 mmHg LV V1 mean: 90.7 cm/sec LV V1 VTI: 25.6 cm ECHO/Echo Complete W/ Contrast Interpretation Summary The estimated ejection fraction is 55-60 %. Normal LV systolic function Ordering Physician: Ryan Tinoco Referring Physician: BAO CHOI Performed By: Linette Lange RCS
[2023-01-22 09:51] LABS: Bedside Glucose 202 mg/dL (74-106)
[2023-01-22] MEDS: CHLORHEXIDINE GLUC 2% CLOTH 1 EACH TOWELETTE TOPICAL (10:29)
[2023-01-22 12:12] LABS: CPK Total, Creatine Kinase 31 U/L (39-308); LDH 136 U/L (87-241)
[2023-01-22 12:32] LABS: Lactic Acid 3.4 mmol/L (0.4-1.9)
--- NOTE | 2023-01-22 14:23 | CASEMGMT ---
Addendum entered by Keily Muniz 01/22/23 15:40: [facility] is aware of patient and they are trying to figure out if they can take patient. Keily GOMEZ Original Note: Patient is from [facility]. SW met with patient's Lorena. SW asked if the plan is for patient to return to [facility] and Lorena said no. Lorena would still like patient to go to [facility] ([facility]) or TCU. Patient's daughter in law works at [facility]. Lorena declined a SNF list as she has the one SW gave her on last admission. SW asked Tamika d/c senior planning analyst to check with [facility]. Keily GOMEZ
[2023-01-22 14:57] LABS: Bedside Glucose 175 mg/dL (74-106)
[2023-01-22 15:42] LABS: Reflex Lactate? Y
[2023-01-22 15:47] LABS: Hematocrit 29.9 % (40-54); Hemoglobin 9.8 g/dL (13.0-16.5)
--- NOTE | 2023-01-22 16:05 | PCM.CONS.C ---
Assessment & Plan Assessment/Plan (1) Second degree AV block, Mobitz type II: (2) HTN (hypertension): (3) History of thoracic aortic aneurysm repair: (4) History of pulmonary embolism: (5) Valvular heart disease: PLAN: Plan It is felt that his second-degree AV block type II is likely medication related. His IV medication has been discontinued. He is no longer on metoprolol. Would like to continue to monitor her rhythm overnight. If his rhythm continues may consider a pacemaker. If his rhythm does improve would not resume any rate limiting medications. Would also plan on sending home on an event monitor to further evaluate. Echocardiogram is pending today. HPI Consult Data Date of Consult: 01/22/23 HPI Narrative HPI Narrative: RICHARD ROY, is a 77 M that has developed 2nd AVB type II. 1 of patient does have a history of hypertension, aortic valve disease with repair, thoracic aortic aneurysm repair, pulmonary embolus, diabetes. Patient was in the hospital in June 2022 for a non-STEMI. He underwent a stress test which was negative for ischemia. It was felt that his non-STEMI was likely type II event. He then was in the hospital in December for confusion and weakness. At that hospital stay he was discharged to a long-term facility for rehab. He presented back to the emergency room yesterday for syncope. The nurses at [facility] had noted that he was unresponsive at the facility and transferred him here. At that time it also noted that he has been having some black tarry stools. Did drop down to 8.9 and he did receive 2 units of blood. Patient was on IV octreotide for his GI bleed. This morning he was noted to have second-degree AV block type II. He had last [facility]. I did speak with , states that prior to his most recent hospital stay in December he was living at home. He did have some issues with confusion her plan is to have him discharged back home after rehab when he is able to do so. She does not recall any syncopal events prior to his most recent hospital stay. She wonders if some of this change in level of consciousness also has to do with medications that were adjusted at his last hospital stay. [facility] Medical History (Updated 01/22/23 @ 16:25 by Rebecca LOZA, PA) Amputation of right great toe Aortic aneurysm without rupture COVID-19 Diabetes Diabetic neuropathy HLD (hyperlipidemia) HTN (hypertension) Hyperkalemia Lactic acidosis Leukocytosis NSTEMI, initial episode of care Osteomyelitis Pulmonary emboli RBBB (right bundle 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) Second degree AV block, Mobitz type II Ulcer of right great toe due to diabetes mellitus Upper gastrointestinal bleed Ureterolithiasis Valvular heart disease Home Medications metoprolol succinate 200 mg tablet,extended release 24 hr 200 mg PO DAILY blood pressure 09/16/13 [History Last Taken 01/20/23] losartan 50 mg tablet 50 mg PO DAILY blood pressure 03/24/18 [History Last Taken 01/20/23] atorvastatin 40 mg tablet 40 mg PO QHS cholesterol 05/22/18 [History Last Taken 01/20/23] warfarin 5 mg tablet (Jantoven) 7.5 mg PO SUTUWETHFRSA anticoagulant 05/22/18 [History Last Taken 01/20/23] tamsulosin 0.4 mg capsule 0.4 mg PO QHS PROSTATE 03/02/22 [History Last Taken 01/20/23] warfarin 5 mg tablet 10 mg PO MO BLOOD THINNER 03/02/22 [History Last Taken 01/02/23] amlodipine 2.5 mg tablet 2.5 mg PO DAILY BP 30 days #30 tabs 07/11/22 [Rx Last Taken 01/20/23] insulin glargine 100 unit/mL (3 mL) subcutaneous pen (Lantus Solostar U-100 Insulin) 12 unit (0.12 mL) subcut DAILY diabetes #15 mL 07/11/22 [Rx Last Taken 01/20/23] acetaminophen 325 mg tablet 650 mg (2 x 325 mg) PO Q4H PRN PRN PAIN AND FEVER #0 tabs 01/08/23 [Rx Last Taken 01/19/23] donepezil 5 mg tablet (Aricept) 5 mg PO QHS DEMENTIA #1 TAB 01/08/23 [Rx Last Taken 01/20/23] melatonin 3 mg tablet 3 mg PO QHS PRN PRN Insomnia #1 TAB 01/08/23 [Rx Last Taken Unknown] cholecalciferol (vitamin D3) 1,250 mcg (50,000 unit) tablet 1,250 mcg PO MO SUPPLEMENT 01/21/23 [History Last Taken 01/14/23] donepezil 10 mg tablet 10 mg PO QHS DEMENTIA 01/21/23 [History Last Taken 01/20/23] duloxetine 60 mg capsule,delayed release (Cymbalta) 60 mg PO DAILY DEPRESSION 01/21/23 [History Last Taken 01/20/23] insulin lispro 100 unit/mL subcutaneous pen (Humalog KwikPen (U-100) Insulin) See Protocol subcut ACHS DM 01/21/23 [History Last Taken 01/21/23] metformin 1,000 mg tablet 1,000 mg PO BID DM 01/21/23 [History Last Taken 01/20/23] Allergy/AdvReac Type Severity Reaction Status Date / Time propofol AdvReac Other Verified 01/21/23 08:23 Family History Mother Heart disease Diabetes Hypertension Father Heart disease Surgical History H/O aortic valve repair History of foot surgery History of thoracic aortic aneurysm repair Hx of abdominal surgery Social History [facility] current occupational status: retired Smoking Status: Never smoker alcohol intake: never substance use type: does not use ROS Review of Systems ROS Unobtainable: due to mental status Physical Exam Const no apparent distress and average body habitus Orientation / Consciousness: lethargic HEENT normocephalic, head/scalp atraumatic, hearing grossly normal bilaterally, external ears normal, external nose normal and moist oral mucous membranes Eyes PERRL, EOMs intact bilaterally, conjunctivae normal and no scleral icterus Neck no lymphadenopathy, supple and no JVD Cardio Rate: bradycardia Rhythm: abnormal rhythm regularly irregular GI normal to inspection, nondistended, normoactive bowel sounds, soft to palpation, non-tender and non-distended Extremity normal to inspection, normal capillary refill, no clubbing, cyanosis or edema and no pedal edema Neuro oriented x3, CN's II-XII intact bilaterally, moves all extremities and no focal motor deficits Psych cooperative and affect normal Risk Stratification Risk Stratification Applicable: No Charges/Coding Visit Charges Office Visits / Consults: 85609 IP Consult L3 Objective Data Vital Signs: Vital Signs Temp Pulse Resp BP Pulse Ox O2 Del Method O2 Flow Rate 97.6 F L 64 16 95/45 L 96 Room Air 2 01/22/23 15:00 01/22/23 15:00 01/22/23 15:00 01/22/23 15:00 01/22/23 15:43 01/22/23 15:43 01/21/23 15:00 Oxygen Flow Rate (L/min) 2 Oxygen Delivery Method Room Air Weight: 220 lb 14.451 oz Body Mass Index (BMI) 29.2 Intake & Output: Intake and Output for Last 24 Hours 01/20/23 01/21/23 01/22/23 23:59 23:59 23:59 Intake Total 3076.84 / 3076.84 1233.87 / 1233.87 Output Total 1350 / 1350 2270 / 2270 Balance 1726.84 / 1726.84 -1036.13 / -1036.13 Lab / Micro Data 01/22/23 15:29 01/22/23 06:45 Labs: Laboratory Results - last 24 hr 01/21/23 08:40: Crossmatch See Detail 01/21/23 19:03: POC Glucose 175 H 01/21/23 20:00: Hgb 8.9 L, Hct 28.4 L 01/21/23 22:12: POC Glucose 168 H 01/22/23 06:23: POC Glucose 183 H 01/22/23 06:45: WBC 22.4 H, RBC 3.63 L, Hgb 10.2 L, Hct 30.8 L, MCV 84.8, MCH 28.1, MCHC 33.1 D, RDW Std Deviation 46.7 H, RDW Coeff of Nathaniel 15.5 H, Plt Count 239, MPV 10.1, Immature Gran % (Auto) 3.300 H, Neut % (Auto) 81.9 H, Lymph % (Auto) 5.9 L, Morris % (Auto) 8.0, Eos % (Auto) 0.7, Baso % (Auto) 0.2, Absolute Neuts (auto) 18.3 H, Absolute Lymphs (auto) 1.33, Nucleated RBC % 0.1, Diff Path Review May foll, Polychromasia 1+, Anisocytosis 1+, Sodium 144, Potassium 4.4, Chloride 116 H, Carbon Dioxide 20.0 L, Anion Gap 8, BUN 123 H*, Creatinine 1.93 H, Estim Creat Clear Calc 37.37, Est GFR (MDRD) Af Amer 44 L, Est GFR (MDRD) Non-Af 36 L, BUN/Creatinine Ratio 63.7 H, Glucose 200 H, Calcium 8.8, Phosphorus 3.5, Magnesium 1.4 L 01/22/23 07:27: PT 16.1 H, INR 1.3 01/22/23 09:28: POC Glucose 202 H 01/22/23 11:32: Lactic Acid 3.4 H*, Lactate Dehydrogenase 136, Total Creatine Kinase 31 L 01/22/23 14:02: POC Glucose 175 H 01/22/23 15:29: Hgb 9.8 L, Hct 29.9 L Rhythm Strip Rhythm Strip: Sinus Rhythm Rate: 90 Ectopy: PAC(s) Cardiology Labs/Tests 01/21/23 20:00: Hgb 8.9 L, Hct 28.4 L 01/22/23 06:45: WBC 22.4 H, RBC 3.63 L, Hgb 10.2 L, Hct 30.8 L, MCV 84.8, MCH 28.1, MCHC 33.1 D, Plt Count 239, MPV 10.1, Immature Gran % (Auto) 3.300 H, Neut % (Auto) 81.9 H, Lymph % (Auto) 5.9 L, Morris % (Auto) 8.0, Eos % (Auto) 0.7, Baso % (Auto) 0.2, Absolute Neuts (auto) 18.3 H, Nucleated RBC % 0.1, Sodium 144, Potassium 4.4, Chloride 116 H, Carbon Dioxide 20.0 L, Anion Gap 8, BUN 123 H*, Creatinine 1.93 H, Est GFR (MDRD) Af Amer 44 L, Est GFR (MDRD) Non-Af 36 L, BUN/Creatinine Ratio 63.7 H, Glucose 200 H, Calcium 8.8, Phosphorus 3.5, Magnesium 1.4 L 01/22/23 07:27: PT 16.1 H, INR 1.3 01/22/23 11:32: Lactic Acid 3.4 H* 01/22/23 15:29: Hgb 9.8 L, Hct 29.9 L Rhythm: EKG:Second degree AVB type II
[2023-01-22 18:16] LABS: Bedside Glucose 180 mg/dL (74-106)
[2023-01-22 21:27] LABS: Bedside Glucose 201 mg/dL (74-106)
[2023-01-23] VITALS (27 sets, daily range): BP systolic 91–132; BP diastolic 38–72; PULSE 52–72; RESP 15–34; TEMP 36.3–37.3; O2SAT 93–99; BMI 28.3
--- NOTE | 2023-01-23 | EGD_PTH ---
PATIENT: RICHARD ROY LOC: [facility] U#:[id number] AGE/SX: 77/M ROOM: [facility] RE01/21/[address]: Dr. Ryan Tinoco MD : 1945 BED: 1 DIS: 01/26/2023 SPEC #: [id number] RECD: 01/23/23 15:32 STATUS: VINNIE TAYLOR #: [id number] CAMILA: 01/23/23 00:[address]: Liu Hackett DEPT: SURGICAL PATHOLOGY RECD BY: Asaf Esteban ENTERED: 01/24/23 13:04 SP TYPE: EGD BIOPSY OTHR DR: MD Dr. Lizzeth Jefferson MD Dr. Prakash Chand, MD Dr. Rahsaan Friend, Tissues: Duodenum, NOS Procedures: Surgery Specimen Level IV Comments: @ Ordering doctor for SUIV edited from to @ sujey ROGERS at 01/24/23 1539 @ Submitting doctor edited from to @ sujey ROGERS at 01/24/23 1539 HEADER OPERATION: EGD PRE-OP DIAGNOSIS: Upper gastrointestinal bleeding TISSUE SUBMITTED: Duodenal ulcer biopsy MICROSCOPIC DIAGNOSIS Duodenal ulcer, biopsy: Fragments of duodenal mucosa with extensive gastric metaplasia and mild non-specific chronic inflammation. SJ: 01/25/2023 COMMENT Correlation with clinical, endoscopic findings and appropriate follow up are necessary. MICROSCOPIC DESCRIPTION Slides are reviewed. GROSS DESCRIPTION Received is one container labeled with the patient name and designated duodenal ulcer. The specimen consists of multiple irregular fragments of light rivas soft tissue that in aggregate measure 1 x 0.5 x 0.5 cm. The specimen is totally submitted in one cassette. / TESSIE:ira 01/24/23 TC: 5 CPT:43028
[2023-01-23] MEDS: Insulin Lispro 100 UNIT/ML INSULN.PEN SC ×4 (01:10→23:46)
[2023-01-23 01:30] LABS: Bedside Glucose 191 mg/dL (74-106)
[2023-01-23 03:44] LABS: International Normalized Ratio 1.4; Prothrombin Time (Protime)PT. 16.8 SECONDS (11.7-14.9)
[2023-01-23 04:53] LABS: Absolute Lymphocyte Count 0.85 X10^3/uL (0.83-4.51); Absolute Neutrophil Count 15.1 X10^3/uL (2.0-7.7); Basophil# 0.04 X10^3/uL; Basophil% 0.2 % (0-1); Eosinophil# 0.13 X10^3/uL; Eosinophils% 0.7 % (0-5); Hematocrit 26.6 % (40-54); Hemoglobin 8.7 g/dL (13.0-16.5); Lymphocyte # 0.85 X10^3/ul (0.83-4.51); Lymphocyte % 4.8 % (19-41); Mean Corp Hgb Conc 32.7 g/dL (32-36); Mean Corpuscular Hgb 27.9 pg (27.0-32.0); Mean Corpuscular Volume 85.3 fL (80-94); Mean Platelet Vol. 10.3 fl (6.2-12.0); Monocyte# 1.25 X10^3/uL; Monocyte% 7.1 % (0-10); NRBC Flagged by Analyzer 0.6 % (0-5); Neutrophil # 15.08 X10^3/uL (2.7-7.7); Neutrophil % 85.3 % (47-70); Platelet Count 198 K/mm3 (150-450); RBC Distribution Width CV 15.7 % (11.6-14.6); RBC Distribution Width SD 47.3 fl (35.1-43.9); Red Blood Count 3.12 M/mm3 (4.6-6.2); White Blood Count 17.7 K/mm3 (4.4-11.0)
[2023-01-23 05:22] LABS: Anion Gap 4 (5-15); BUN 88 mg/dL (7-18); BUN/Creat Ratio 50.3 RATIO (10-20); Calcium,Total 8.3 mg/dL (8.5-10.1); Chloride 120 mmol/L (98-107); Creatinine, Serum 1.75 mg/dL (0.70-1.30); EST Glomerular Filtration Rate 41 mL/min (>60); Est Glom Filt Rate - Afr Amer 49 mL/min (>60); Estimated Creatinine Clearance 41.22 ml/min; Glucose 194 mg/dL (74-106); Potassium 4.1 mmol/L (3.5-5.1); Sodium Level 148 mmol/L (136-145)
[2023-01-23 05:28] LABS: Bedside Glucose 189 mg/dL (74-106)
[2023-01-23 05:35] LABS: Magnesium 1.7 mg/dL (1.6-2.6); Phosphorus 2.7 mg/dL (2.5-4.9)
--- NOTE | 2023-01-23 08:34 | CASEMGMT ---
Social Work Pt's LW and POA are both scanned into the summary tab of the echart, pt's POA for healthcare is pt's Lorena. FEDERICO Shields
--- NOTE | 2023-01-23 08:52 | PN.HOSP_ITS ---
Reason for Visit Reason for Visit: Diagnoses Acute posthemorrhagic anemia (01/21/23) Essential (primary) hypertension (01/21/23) Endocarditis, valve unspecified (01/21/23) Atrioventricular block, second degree (01/21/23) Gastrointestinal hemorrhage, unspecified (01/21/23) Personal history of pulmonary embolism (01/21/23) Personal history of other diseases of the circulatory system (01/21/23) Other specified postprocedural states (01/21/23) Subjective Subjective Follow-up for Mobitz type II AV block and GI bleed complicated with acute blood loss anemia Objective Data Objective Data Vital Signs: Vital Signs Temp Pulse Resp BP Pulse Ox O2 Del Method O2 Flow Rate 98.4 F 57 L 21 H 128/50 H 95 Room Air 2 01/23/23 08:00 01/23/23 08:00 01/23/23 08:00 01/23/23 08:00 01/23/23 08:00 01/23/23 08:00 01/21/23 15:00 Oxygen Flow Rate (L/min) 2 Oxygen Delivery Method Room Air Weight: 214 lb 11.684 oz Body Mass Index (BMI) 28.3 Intake & Output: Intake and Output for Last 24 Hours 01/21/23 01/22/23 01/23/23 23:59 23:59 23:59 Intake Total 3076.84 / 3076.84 2233.87 / 2233.87 99.5 / 99.5 Output Total 1350 / 1350 3030 / 3030 500 / 500 Balance 1726.84 / 1726.84 -796.13 / -796.13 -400.5 / -400.5 Lab / Micro Data 01/23/23 03:20 01/23/23 03:20 Labs: Laboratory Results - last 24 hr 01/22/23 09:28: POC Glucose 202 H 01/22/23 11:32: Lactic Acid 3.4 H*, Lactate Dehydrogenase 136, Total Creatine Kinase 31 L 01/22/23 14:02: POC Glucose 175 H 01/22/23 15:29: Hgb 9.8 L, Hct 29.9 L 01/22/23 17:36: POC Glucose 180 H 01/22/23 21:04: POC Glucose 201 H 01/23/23 01:09: POC Glucose 191 H 01/23/23 03:20: WBC 17.7 H, RBC 3.12 L, Hgb 8.7 L, Hct 26.6 L, MCV 85.3, MCH 27.9, MCHC 32.7, RDW Std Deviation 47.3 H, RDW Coeff of Nathaniel 15.7 H, Plt Count 198, MPV 10.3, Immature Gran % (Auto) 1.900 H, Neut % (Auto) 85.3 H, Lymph % (Auto) 4.8 L, Moore % (Auto) 7.1, Eos % (Auto) 0.7, Baso % (Auto) 0.2, Absolute Neuts (auto) 15.1 H, Absolute Lymphs (auto) 0.85, Nucleated RBC % 0.6, PT 16.8 H , INR 1.4, Sodium 148 H, Potassium 4.1, Chloride 120 H, Carbon Dioxide 24.0, Anion Gap 4 L, BUN 88 H, Creatinine 1.75 H, Estim Creat Clear Calc 41.22, Est GFR (MDRD) Af Amer 49 L, Est GFR (MDRD) Non-Af 41 L, BUN/Creatinine Ratio 50.3 H , Glucose 194 H, Calcium 8.3 L, Phosphorus 2.7, Magnesium 1.7 01/23/23 05:06: POC Glucose 189 H Micro: Microbiology 01/21/23 09:15 Stool Stool Occult Blood (KLAUS) - Final Occult Blood Positive Radiography Diagnostic Testing: Radiology Impression Echocardiogram 01/22/23 08:24 Interpretation Summary The estimated ejection fraction is 55-60 %. Normal LV systolic function Ordering Physician: Ryan Tinoco Referring Physician: BAO CHOI Performed By: Linette Lange RCS Rhythm Strip Rhythm Strip: Sinus Rhythm Rate: 90 Ectopy: PAC(s) Physical Exam Narrative Seen and examined. Discussed with the nursing staff. Patient is still having Mobitz type II AV block, every third beat dropped. Discussed with the spud grader. No chest pain or tightness. General: Oriented x3, Cooperative. Intermittently, drowsiness and gets confused. BMI 28.9 KG per square meter. HEENT: Atraumatic, PERRLA, EOMI, Normocephalic Oral: Oral mucosa moist. No Gingival or Mucosal Lesions/ Ulcerations Neck: Supple, No JVD, Negative Carotid Bruits Lungs: Air entry diminished in bilateral lung bases. No crepitation/rhonchi Cardiovascular: Regular rate, Regular Rhythm, Normal S1, Normal S2, pansystolic murmur over cardiac apex. Abdomen: Bowel Sounds Present, Soft, Non Tender, Non-Distended : No renal angle tenderness. No suprapubic tenderness. Extremities: No edema, Capillary Refill Less than 3 Seconds Skin: No rashes, No breakdown Musculoskeletal: Muscle strength 4+/5 at knee and hip joints. ROM restricted. No Tenderness to Palpation of Joints or Extremities Neurological: Cranial nerves II-XII grossly intact, DTR 2+/4 and Symmetrical, Neuro grossly intact Psych/Mental Status: Flat affect. Amnesia/cognitive deficit. Assessment & Plan Assessment/Plan (1) Upper gastrointestinal bleeding: (2) ABLA (acute blood loss anemia): PLAN: Plan This is a 77-year-old gentleman being admitted from [facility] for multiple episodes of syncope and upper GI bleed 1. Acute blood loss anemia and hypotension due to upper GI bleed: Patient is being admitted in ICU. His baseline hemoglobin is 13.1 which dropped to 10.7. BP was low 108/70 with baseline 143/64. Patient was resuscitated with IV fluid last blood pressure 133/55. 2 units PRBC typed and crossmatched. Keep NPO. Continue IV fluid Ringer lactate. Patient started on IV pantoprazole drip after bolus and octreotide drip. GI consulted. H&H monitoring. Patient has history of gastric ulcer in the past when he had EGD in early s. Had last colonoscopy less than a year was normal as per the . His medical care is under [facility]. 01/22: Hemoglobin dropped to 8.9. Patient had 2 units of PRBC transfusion and repeat hemoglobin 10.2. Octreotide discontinued as mentioned below. 01/23: Hemoglobin 8.7. Leukocytosis improving. Most likely reactive. Protonix drip changed to 40 mg IV every 12 hourly 2 Syncopal episode most likely due to hypotension/GI bleed: As per the nursing staff patient had multiple shorts, brief syncopal episodes with intermittent confusion in between. Patient had echo in June 2022 reported EF 65% moderate concentric LVH. Mild MR. Orthostatic BP when patient is stable 01/23: Positive fluid balance 500 mm/h. IV fluid D5W at 50 mill per hour for nutritional purposes. 3. Transient A-fib and Mobitz type II, second-degree AV block: Patient is started having irregular heartbeat initially A-fib postmidnight and then about 5 AM Mobitz type II AV block. Initial EKG was normal sinus rhythm admission H&P. Second EKG at 9:26 PM shows sinus rhythm with second-degree Mobitz type II block but there was 2 dropped heartbeat in EKG. groundwater monitoring technician shows heart rate slowed down to 48 to 60/min. EKG in the morning about 6 AM today shows sinus rhythm with second-degree Mobitz type II block, RBBB, LAFB bifascicular block. Patient has history of bifascicular block. I talked to the patient's and informed her about the update. Patient has history of ascending aortic aneurysm and had that repaired along with aortic valve in [facility]. His spud grader is Dr. Huston in [facility]. I think this is most probably due to start of the octreotide drip as patient was in sinus normal rhythm at time of admission. Octreotide discontinued. Final Inspection Supervisor consulted. 2D echo ordered. 01/23: Echo states EF 55 to 60%, normal LV systolic function. Trivial MR. Mild diffuse aortic valve calcification. Normal left atrium. Plan: Final Inspection Supervisor Dr. Ling will talk to Dr. Chandra regarding assessment for pacemaker 3. Essential hypertension and dyslipidemia-hold antihypertensive medications. Statin when oral is allowed. Blood pressure has recovered to 114/63 but patient still has weak radial pulse. Carotid pulses good. Hold antihypertensive medications. 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 01/23: Glucose between 1 50?200. Accu-Chek every 6 hourly incorrigible of sl iding scale.. Patient is NPO. #5 DVT on warfarin with supratherapeutic INR: Patient on warfarin. INR 4.2. Vitamin K 5 mg IV given in ED. 01/23: Repeat INR is 1.4. #6 BPH-patient is on Flomax, on hold #7 acute debility, disequilibrium: PT and OT ordered. #8 possible depression versus early dementia: Patient is on antidepressant and Aricept. Will resume once oral is allowed. 9. Lactic acidosis mostly due to hypotension and hypoperfusion: Lactic acid has decreased. I do not think patient has suspected or confirmed focus of infection. Therefore sepsis or septic shock is ruled out. VTE prophylaxis: Pharmacological prophylaxis contraindicated in view of GI bleed, acute blood loss anemia and supratherapeutic INR. Bilateral SCDs. Living will/advanced directive/end of life care: Patient does have living will or advanced directive. His is power of [place] attorney for health. After discussion of benefits/risks procedures involved with full code, DNR CC arrest and DNR CC, the patient and his opted for full code. Patient does want artificial life support including intubation, tube feed, ventilator and/chest compression, central venous catheter, vasopressor and DC shock if needed Clinical Impression(s) from Imaging Studies Brain CT 01/21/23 09:00 IMPRESSION: Chronic involutional changes of the brain. Partial opacification of the right maxillary and right frontal sinus Electronically Signed: Ravindra Sierra MD at 10:43 EDT , Chest X-Ray 01/21/23 09:30 IMPRESSION: No acute abnormality is seen. Echocardiogram 01/22/23 08:24 Interpretation Summary The estimated ejection fraction is 55-60 %. Normal LV systolic function Charges/Coding Addendum Addendum: Total time of the visit including total time spent in counseling or coordination of care, (more than 50% of the total time, spent in obtaining medical information from nurses and other ancillary care providers,explaining to the patient about labs, imaging, diagnosis and management of active complex medical conditions including multiple organ systems), coordination with cardiology and GI events solutions consultant, review of labs and imaging is 50 minutes. Visit Charges Inpatient E&M: 57655 [facility] Hosp L3
[2023-01-23] MEDS: CHLORHEXIDINE GLUC 2% CLOTH 1 EACH TOWELETTE TOPICAL (09:01)
[2023-01-23] MEDS: 0.9% Saline Lock 10 ML Syringe IV (09:08)
[2023-01-23 09:17] LABS: Hematocrit 26.5 % (40-54); Hemoglobin 8.9 g/dL (13.0-16.5)
--- NOTE | 2023-01-23 09:19 | CASEMGMT ---
Social Work SW participated in ICU rounds, it is anticipated pt not be discharged before Saturday. SW called [facility] to go ahead and send the referral and they will see about bed availability. [facility], SW will continue to follow. FEDERICO Shields
--- NOTE | 2023-01-23 09:46 | PN.CARD_ITS ---
<Statement entered by Lizzeth Riggs MD - 01/23/23 14:44> Pt seen & evaluated w/TRIP. I personally interviewed & exam the pt. I was involved in all aspects of pt's orders, interpretation of results & treatment Subjective Subjective Pt slightly more awake today. Still only able to answer yes/no questions. Second degree heart block appears to be improving. Hgb is dropping. Objective Data Vital Signs: Vital Signs Temp Pulse Resp BP Pulse Ox O2 Del Method O2 Flow Rate 98.4 F 56 L 21 H 124/46 H 96 Room Air 2 01/23/23 08:00 01/23/23 09:00 01/23/23 09:00 01/23/23 09:00 01/23/23 09:00 01/23/23 09:00 01/21/23 15:00 Oxygen Flow Rate (L/min) 2 Oxygen Delivery Method Room Air Weight: 214 lb 11.684 oz Body Mass Index (BMI) 28.3 Intake & Output: Intake and Output for Last 24 Hours 01/21/23 01/22/23 01/23/23 23:59 23:59 23:59 Intake Total 3076.84 / 3076.84 2233.87 / 2233.87 189.5 / 189.5 Output Total 1350 / 1350 3030 / 3030 500 / 500 Balance 1726.84 / 1726.84 -796.13 / -796.13 -310.5 / -310.5 Lab / Micro Data 01/23/23 09:00 01/23/23 03:20 Labs: Laboratory Results - last 24 hr 01/22/23 09:28: POC Glucose 202 H 01/22/23 11:32: Lactic Acid 3.4 H*, Lactate Dehydrogenase 136, Total Creatine Kinase 31 L 01/22/23 14:02: POC Glucose 175 H 01/22/23 15:29: Hgb 9.8 L, Hct 29.9 L 01/22/23 17:36: POC Glucose 180 H 01/22/23 21:04: POC Glucose 201 H 01/23/23 01:09: POC Glucose 191 H 01/23/23 03:20: WBC 17.7 H, RBC 3.12 L, Hgb 8.7 L, Hct 26.6 L, MCV 85.3, MCH 27.9, MCHC 32.7, RDW Std Deviation 47.3 H, RDW Coeff of Nathaniel 15.7 H, Plt Count 198, MPV 10.3, Immature Gran % (Auto) 1.900 H, Neut % (Auto) 85.3 H, Lymph % (Auto) 4.8 L, [place] % (Auto) 7.1, Eos % (Auto) 0.7, Baso % (Auto) 0.2, Absolute Neuts (auto) 15.1 H, Absolute Lymphs (auto) 0.85, Nucleated RBC % 0.6, PT 16.8 H , INR 1.4, Sodium 148 H, Potassium 4.1, Chloride 120 H, Carbon Dioxide 24.0, Anion Gap 4 L, BUN 88 H, Creatinine 1.75 H, Estim Creat Clear Calc 41.22, Est GFR (MDRD) Af Amer 49 L, Est GFR (MDRD) Non-Af 41 L, BUN/Creatinine Ratio 50.3 H , Glucose 194 H, Calcium 8.3 L, Phosphorus 2.7, Magnesium 1.7 01/23/23 05:06: POC Glucose 189 H 01/23/23 09:00: Hgb 8.9 L, Hct 26.5 L Cardiology Labs/Tests 01/22/23 11:32: Lactic Acid 3.4 H* 01/22/23 15:29: Hgb 9.8 L, Hct 29.9 L 01/23/23 03:20: WBC 17.7 H, RBC 3.12 L, Hgb 8.7 L, Hct 26.6 L, MCV 85.3, MCH 27.9, MCHC 32.7, Plt Count 198, MPV 10.3, Immature Gran % (Auto) 1.900 H, Neut % (Auto) 85.3 H, Lymph % (Auto) 4.8 L, [place] % (Auto) 7.1, Eos % (Auto) 0.7, Baso % (Auto) 0.2, Absolute Neuts (auto) 15.1 H, Nucleated RBC % 0.6, PT 16.8 H, INR 1.4, Sodium 148 H, Potassium 4.1, Chloride 120 H, Carbon Dioxide 24.0, Anion Gap 4 L, BUN 88 H, Creatinine 1.75 H, Est GFR (MDRD) Af Amer 49 L, Est GFR (MDRD) Non-Af 41 L, BUN/Creatinine Ratio 50.3 H, Glucose 194 H, Calcium 8.3 L, Phosphorus 2.7, Magnesium 1.7 01/23/23 09:00: Hgb 8.9 L, Hct 26.5 L Rhythm: Sinus laly, PACs, Intermittent second-degree AV block Radiography Diagnostic Testing: Radiology Impression Echocardiogram 01/22/23 08:24 Interpretation Summary The estimated ejection fraction is 55-60 %. Normal LV systolic function Ordering Physician: Ryan Tinoco Referring Physician: BAO CHOI Performed By: Linette Lange RCS Physical Exam Const no apparent distress and average body habitus Orientation / Consciousness: lethargic HEENT normocephalic, head/scalp atraumatic, hearing grossly normal bilaterally, external ears normal, external nose normal and moist oral mucous membranes Eyes PERRL, EOMs intact bilaterally, conjunctivae normal and no scleral icterus Neck no lymphadenopathy, supple and no JVD Resp normal respiratory effort Resp Narrative: diminished t/o Cardio Rate: bradycardia Rhythm: abnormal rhythm regularly irregular GI normal to inspection, nondistended, normoactive bowel sounds, soft to palpation, non-tender and non-distended Extremity normal to inspection, normal capillary refill, no clubbing, cyanosis or edema and no pedal edema Neuro oriented x3, CN's II-XII intact bilaterally, moves all extremities and no focal motor deficits Psych cooperative and affect normal Assessment & Plan Assessment/Plan (1) Second degree AV block, Mobitz type II: (2) HTN (hypertension): (3) History of thoracic aortic aneurysm repair: (4) History of pulmonary embolism: (5) Valvular heart disease: (6) Anemia: PLAN: Plan It is felt that his second-degree AV block type II is likely medication related. His IV medication has been discontinued. He is no longer on metoprolol. Rhythm was reviewed with Dr. Riggs and Dr. Chandra. It appears that rhythm is improving. Feel that this could still be related to medication. For now recommend continued watchful monitoring. In regards to his EGD, okay to proceed with this. Do acknowledge that he could have lower heart rates. This was discussed with Dr. Riggs and Dr. Chandra. In regards to his AAA and Aortic valve repair, this appears stable. Charges/Coding Visit Charges Inpatient E&M: 73682 Subs Hosp L2
[2023-01-23 10:09] LABS: Pathologist Review Reviewed
[2023-01-23 11:21] LABS: Bedside Glucose 191 mg/dL (74-106)
[2023-01-23] MEDS: Lactated Ringers 1,000 ML 15 ML IV (11:22)
--- NOTE | 2023-01-23 12:24 | OP.EGD_ITS ---
Patient Name: Mele Szymanski Procedure Date: 01/23/2023 11:16 AM Date of : 1945 Age: 77 Procedure: Upper GI endoscopy Indications: Iron deficiency anemia, Melena Providers: Liu Hackett DO Medicines: Monitored Anesthesia Care Patient Profile: This is a 77 year old male. Refer to note in patient chart for documentation of history and physical. Patient has symptoms of acute epigastric abdominal pain and chronic nausea. Complications: No immediate complications. Procedure: Pre-Anesthesia Assessment: - Prior to the procedure, a History and Physical was performed, and patient medications and allergies were reviewed. The patient is competent. The risks and benefits of the procedure and the sedation options and risks were discussed with the patient. All questions were answered and informed consent was obtained. Patient identification and proposed procedure were verified by the physician in the pre-procedure area. Mental Status Examination: alert and oriented. Airway Examination: normal oropharyngeal airway and neck mobility. Respiratory Examination: clear to auscultation. CV Examination: normal. Prophylactic Antibiotics: The patient does not require prophylactic antibiotics. Prior Anticoagulants: The patient has taken no previous anticoagulant or antiplatelet agents. ASA Grade Assessment: III - A patient with severe systemic disease. After reviewing the risks and benefits, the patient was deemed in satisfactory condition to undergo the procedure. The anesthesia plan was to use monitored anesthesia care (MAC). Immediately prior to administration of medications, the patient was re-assessed for adequacy to receive sedatives. The heart rate, respiratory rate, oxygen saturations, blood pressure, adequacy of pulmonary ventilation, and response to care were monitored throughout the procedure. The physical status of the patient was re-assessed after the procedure. After obtaining informed consent, the endoscope was passed under direct vision. Throughout the procedure, the patient's blood pressure, pulse, and oxygen saturations were monitored continuously. The Endoscope was introduced through the mouth, and advanced to the second part of duodenum. Scope In: 12:10:36 PM Scope Out: 12:17:52 PM Total Procedure Duration Time 0 hours 7 minutes 16 seconds Findings: The examined esophagus was moderately tortuous. A non-bleeding diverticulum with a small opening and no stigmata of recent bleeding was found at the cricopharyngeus. A single 5 mm bleeding angiodysplastic lesion was found in the cardia. Coagulation for hemostasis using argon plasma at 0.3 liters/minute and 20 day was successful. Estimated blood loss was minimal. Localized moderate inflammation characterized by congestion (edema), erosions and erythema was found in the prepyloric region of the stomach. Many oozing cratered duodenal ulcers with adherent clot were found in the duodenal bulb. The largest lesion was 9 mm in largest dimension. Area was successfully injected with 5 mL of a 1:10,000 solution of epinephrine for drug delivery. Estimated blood loss was minimal. Five non-bleeding cratered duodenal ulcers with no stigmata of bleeding were found in the first portion of the duodenum. The largest lesion was 10 mm in largest dimension. Biopsies were taken with a cold forceps for histology. Verification of patient identification for the specimen was done. Estimated blood loss was minimal. Impression: - Tortuous esophagus. 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 Treated with argon plasma coagulation (APC). - Gastritis. - Multiple oozing duodenal ulcers with adherent clot. Injected. - Multiple non-bleeding duodenal ulcers with no stigmata of bleeding. Biopsied. Recommendation: - [facility]. - Full liquid diet. - Use Protonix (pantoprazole) 40 mg PO BID for 8 weeks. - Continue present medications. Procedure Code(s): --- Professional --- 62560, 59, Esophagogastroduodenoscopy, flexible, transoral; with control of bleeding, any method 96255, 59, Esophagogastroduodenoscopy, flexible, transoral; with directed submucosal injection(s), any substance 35460, 51, Esophagogastroduodenoscopy, flexible, transoral; with biopsy, single or multiple CPT copyright 2017 [employer]. All rights reserved. The codes documented in this report are preliminary and upon director digital advertising review may be revised to meet current compliance requirements. Liu Hackett DO 01/23/2023 12:23:47 PM This report has been signed electronically. Number of Addenda: 0 Note Initiated On: 01/23/2023 11:16 AM
--- NOTE | 2023-01-23 12:24 | OP.CCLET_ITS ---
01/23/2023 Luis Caldera Re : Upper GI endoscopy procedure for Mele Szymanski Crystalr Verenice This procedure was performed on Monday, January 23, 2023. My impressions and recommendations are as follows: Impressions : - Tortuous esophagus. 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 Treated with argon plasma coagulation (APC). - Gastritis. - Multiple oozing duodenal ulcers with adherent clot. Injected. - Multiple non-bleeding duodenal ulcers with no stigmata of bleeding. Biopsied. Recommendations : - [facility]. - Full liquid diet. - Use Protonix (pantoprazole) 40 mg PO BID for 8 weeks. - Continue present medications. My findings are described in the full procedure note, which is enclosed. If I can be of further assistance, please feel free to contact me at . Sincerely, Liu Hackett, 01/23/2023 12:23:47 PM This report has been signed electronically.
[2023-01-23 13:08] LABS: Anti-Centromere B Ab <0.2 AI (0.0-0.9); Anti-Chromatin <0.2 AI (0.0-0.9); Anti-Jo <0.2 AI (0.0-0.9); Anti-Scleroderma-70 AB <0.2 AI (0.0-0.9); Anti-dsDNA Ab <1 IU/mL (0-9); RNP Ab <0.2 AI (0.0-0.9); SJOGREN'S Anti-SS-A test < 0.2 AI (0.0-0.9); SJOGREN'S Anti-SS-B test < 0.2 AI (0.0-0.9); Smith Ab <0.2 AI (0.0-0.9)
--- NOTE | 2023-01-23 15:24 | CHAPLAIN ---
Type of Pastoral Visit ___ Initial Visit _x__ Follow-up Visit ___ On-call Visit ___ General Patient Visit ___ Spiritual Assessment ___ Family Conference ___ Bereavement ___ Rapid Response ___ Code Blue ___ Other (describe below) Pastoral Care Referral From _x__ Patient _x__ Family ___ Nurse ___ Physician ___ Lamp Developer ___ Pbx Teacher ___ Other (describe below) Sacrament/Intervention ___ Active listening ___ Anointing ___ Druze ___ Bereavement ___ Communion ___ Elaine exploration ___ ___ Life review _x__ Prayer ___ Reconciliation ___ Sacrament of Sick _x__ Supportive presence ___ Wedding ___ Other (describe below) Pastoral Comments patient is awake and thus able to answer questions simply; pt keeps his eyes closed and does not engage in conversation otherwise; pt did respond affirmatively for a prayer to be spoken; offered assurance of attentive care and God's presence
[2023-01-23 17:43] LABS: Bedside Glucose 201 mg/dL (74-106)
[2023-01-24] VITALS (7 sets, daily range): BP systolic 110–131; BP diastolic 41–78; PULSE 55–68; RESP 16–22; TEMP 36.6–36.9; O2SAT 94–96; BMI 28.5
[2023-01-24 00:08] LABS: Bedside Glucose 179 mg/dL (74-106)
[2023-01-24 04:31] LABS: Absolute Neutrophil Count 10.9 X10^3/uL (2.0-7.7); Basophil# 0.02 X10^3/uL; Basophil% 0.2 % (0-1); Eosinophil# 0.17 X10^3/uL; Eosinophils% 1.3 % (0-5); Hematocrit 27.4 % (40-54); Lymphocyte % 5.3 % (19-41); Mean Corp Hgb Conc 32.8 g/dL (32-36); Mean Corpuscular Hgb 28.6 pg (27.0-32.0); Mean Platelet Vol. 10.1 fl (6.2-12.0); Monocyte# 1.16 X10^3/uL; Monocyte% 8.9 % (0-10); NRBC Flagged by Analyzer 0.3 % (0-5); Neutrophil # 10.86 X10^3/uL (2.7-7.7); Neutrophil % 82.8 % (47-70); Platelet Count 183 K/mm3 (150-450); RBC Distribution Width CV 16.1 % (11.6-14.6); RBC Distribution Width SD 49.8 fl (35.1-43.9); Red Blood Count 3.15 M/mm3 (4.6-6.2); White Blood Count 13.1 K/mm3 (4.4-11.0)
[2023-01-24 04:42] LABS: International Normalized Ratio 1.3; Prothrombin Time (Protime)PT. 16.3 SECONDS (11.7-14.9)
[2023-01-24 04:44] LABS: Anion Gap 2 (5-15); BUN 51 mg/dL (7-18); BUN/Creat Ratio 35.4 RATIO (10-20); Calcium,Total 8.7 mg/dL (8.5-10.1); Chloride 121 mmol/L (98-107); Creatinine, Serum 1.44 mg/dL (0.70-1.30); EST Glomerular Filtration Rate 51 mL/min (>60); Est Glom Filt Rate - Afr Amer 62 mL/min (>60); Estimated Creatinine Clearance 50.09 ml/min; Glucose 193 mg/dL (74-106); Magnesium 1.9 mg/dL (1.6-2.6); Phosphorus 2.4 mg/dL (2.5-4.9); Sodium Level 149 mmol/L (136-145)
[2023-01-24] MEDS: 0.9% Saline Lock 10 ML Syringe IV (04:44)
[2023-01-24] MEDS: Insulin Lispro 100 UNIT/ML INSULN.PEN SC ×3 (05:13→18:25)
--- NOTE | 2023-01-24 07:58 | PCM.PN.HOSP ---
Reason for Visit Reason for Visit: Diagnoses Acute posthemorrhagic anemia (01/21/23) Anemia, unspecified (01/21/23) Essential (primary) hypertension (01/21/23) Endocarditis, valve unspecified (01/21/23) Atrioventricular block, second degree (01/21/23) Gastrointestinal hemorrhage, unspecified (01/21/23) Personal history of pulmonary embolism (01/21/23) Personal history of other diseases of the circulatory system (01/21/23) Other specified postprocedural states (01/21/23) Subjective Subjective Patient is still having AV block. Had EGD yesterday. Patient laying down on the bed. Does not complain of chest pain shortness of breath or acute change. Objective Data Objective Data Vital Signs: Vital Signs Temp Pulse Resp BP Pulse Ox O2 Del Method O2 Flow Rate 98.2 F 64 19 H 127/45 H 96 Room Air 2 01/24/23 04:00 01/24/23 04:00 01/24/23 04:00 01/24/23 04:00 01/24/23 07:20 01/24/23 07:20 01/21/23 15:00 Oxygen Flow Rate (L/min) 2 Oxygen Delivery Method Room Air Weight: 215 lb 2.738 oz Body Mass Index (BMI) 28.5 Intake & Output: Intake and Output for Last 24 Hours 01/22/23 01/23/23 01/24/23 23:59 23:59 23:59 Intake Total 2233.87 / 2233.87 564.75 / 564.75 799.17 / 799.17 Output Total 3030 / 3030 1475 / 1825 725 / 725 Balance -796.13 / -796.13 -910.25 / -1260.25 74.17 / 74.17 Lab / Micro Data 01/24/23 04:15 01/24/23 04:15 Labs: Laboratory Results - last 24 hr 01/22/23 06:45: Diff Path Review Reviewed 01/22/23 11:32: CINDI-1 Antibody <0.2, SS-A/Ro IgG Antibody < 0.2, SS-B/La IgG Antibody < 0.2, Sm (Martinez) Antibody <0.2, AUTOMATED EQUIPMENT ENGINEER TECHNICIAN Antibody <0.2, Scl-70 Scleroderma Ab <0.2, Double Strand DNA Ab <1, Centromere B Antibody <0.2 01/23/23 09:00: Hgb 8.9 L, Hct 26.5 L 01/23/23 11:01: POC Glucose 191 H 01/23/23 17:21: POC Glucose 201 H 01/23/23 23:44: POC Glucose 179 H 01/24/23 04:15: WBC 13.1 H, RBC 3.15 L, Hgb 9.0 L, Hct 27.4 L, MCV 87.0, MCH 28.6, MCHC 32.8, RDW Std Deviation 49.8 H, RDW Coeff of Nathaniel 16.1 H, Plt Count 183, MPV 10.1, Immature Gran % (Auto) 1.500 H, Neut % (Auto) 82.8 H, Lymph % (Auto) 5.3 L, [place] % (Auto) 8.9, Eos % (Auto) 1.3, Baso % (Auto) 0.2, Absolute Neuts (auto) 10.9 H, Absolute Lymphs (auto) 0.70 L, Nucleated RBC % 0.3, PT 16.3 H, INR 1.3, Sodium 149 H, Potassium 4.0, Chloride 121 H, Carbon Dioxide 26.0, Anion Gap 2 L, BUN 51 H, Creatinine 1.44 H, Estim Creat Clear Calc 50.09, Est GFR (MDRD) Af Amer 62, Est GFR (MDRD) Non-Af 51 L, BUN/Creatinine Ratio 35.4 H, Glucose 193 H, Calcium 8.7, Phosphorus 2.4 L, Magnesium 1.9 Micro: Microbiology 01/21/23 09:15 Stool Stool Occult Blood (KLAUS) - Final Occult Blood Positive Rhythm Strip Rhythm Strip: Sinus Rhythm Rate: 90 Ectopy: PAC(s) Physical Exam Narrative Seen and examined. Discussed with the nursing staff. Patient is still having Mobitz type II AV block, but is not following the pattern of 3 history 1. Sometimes it gets irregular but he still has P waves. Twelve-lead EKG ordered.. Discussed with the shuttle hand. No chest pain or tightness. General: Awake but drowsy. Oriented x3, Cooperative. BMI 28.9 KG per square meter. HEENT: Atraumatic, PERRLA, EOMI, Normocephalic Oral: Oral mucosa moist. No Gingival or Mucosal Lesions/ Ulcerations Neck: Supple, No JVD, Negative Carotid Bruits Lungs: Air entry diminished in bilateral lung bases. No crepitation/rhonchi Cardiovascular: Irregular sinusrhythm, P wave present. Bradycardia. Normal S1, Normal S2, pansystolic murmur over cardiac apex. Abdomen: Bowel Sounds Present, Soft, Non Tender, Non-Distended : No renal angle tenderness. No suprapubic tenderness. Extremities: No edema, Capillary Refill Less than 3 Seconds Skin: No rashes, No breakdown Musculoskeletal: Muscle strength 4+/5 at knee and hip joints. ROM restricted. No Tenderness to Palpation of Joints or Extremities Neurological: Cranial nerves II-XII grossly intact, DTR 2+/4 and Symmetrical, Neuro grossly intact Psych/Mental Status: Flat affect. Amnesia/cognitive deficit. Assessment & Plan Assessment/Plan (1) Upper gastrointestinal bleeding: (2) ABLA (acute blood loss anemia): PLAN: Plan This is a 77-year-old gentleman being admitted from [facility] for multiple episodes of syncope and upper GI bleed 1. Acute blood loss anemia and hypotension due to upper GI bleed: Patient is being admitted in ICU. His baseline hemoglobin is 13.1 which dropped to 10.7. BP was low 108/70 with baseline 143/64. Patient was resuscitated with IV fluid last blood pressure 133/55. 2 units PRBC typed and crossmatched. Keep NPO. Continue IV fluid Ringer lactate. Patient started on IV pantoprazole drip after bolus and octreotide drip. GI consulted. H&H monitoring. Patient has history of gastric ulcer in the past when he had EGD in early . Had last colonoscopy less than a year was normal as per the . His medical care is under [facility]. 01/22: Hemoglobin dropped to 8.9. Patient had 2 units of PRBC transfusion and repeat hemoglobin 10.2. Octreotide discontinued as mentioned below. 01/23: Hemoglobin 8.7. Leukocytosis improving. Most likely reactive. Protonix drip changed to 40 mg IV every 12 hourly 01/24: Hemoglobin 9.0. Leukocytosis improving. Platelet count normal. 2 Syncopal episode most likely due to hypotension/GI bleed: As per the nursing staff patient had multiple shorts, brief syncopal episodes with intermittent confusion in between. Patient had echo in June 2022 reported EF 65% moderate concentric LVH. Mild MR. Orthostatic BP when patient is stable 01/23: Positive fluid balance 500 mm/h. IV fluid D5W at 50 mill per hour for nutritional purposes. 3. Transient A-fib and Mobitz type II, second-degree AV block: Patient is started having irregular heartbeat initially A-fib postmidnight and then about 5 AM Mobitz type II AV block. Initial EKG was normal sinus rhythm admission H&P. Second EKG at 9:26 PM shows sinus rhythm with second-degree Mobitz type II block but there was 2 dropped heartbeat in EKG. playground monitor shows heart rate slowed down to 48 to 60/min. EKG in the morning about 6 AM today shows sinus rhythm with second-degree Mobitz type II block, RBBB, LAFB bifascicular block. Patient has history of bifascicular block. I talked to the patient's and informed her about the update. Patient has history of ascending aortic aneurysm and had that repaired along with aortic valve in [facility]. His shuttle hand is Dr. Huston in [facility]. I think this is most probably due to start of the octreotide drip as patient was in sinus normal rhythm at time of admission. Octreotide discontinued. Ticket Collector consulted. 2D echo ordered. 01/23: Echo states EF 55 to 60%, normal LV systolic function. Trivial MR. Mild diffuse aortic valve calcification. Normal left atrium. Plan: Ticket Collector Dr. Ling will talk to Dr. Chandra regarding assessment for pacemaker 01/24: Patient has hypernatremia and hyperchloremia. IV fluid D5W started. Patient is still has AV block, P waves but rhythm is irregular. Twelve-lead EKG ordered. Discussed with the shuttle hand. Dr. Ling will talk to Dr. Chandra. 3. Essential hypertension and dyslipidemia-hold antihypertensive medications. Statin when oral is allowed. Blood pressure has recovered to 114/63 but patient still has weak radial pulse. Carotid pulses good. Hold antihypertensive medications. 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 01/23: Glucose between 150?200. Accu-Chek every 6 hourly with coverage of sliding scale. Patient is NPO. #5 DVT on warfarin with supratherapeutic INR: Patient on warfarin. INR 4.2. Vitamin K 5 mg IV given in ED. 01/23: Repeat INR is 1.4. #6 BPH-patient is on Flomax #7 acute debility, disequilibrium: PT and OT ordered. #8 possible depression versus early dementia: Patient is on antidepressant and Aricept. Will resume once oral is allowed. 01/24: Aricept is likely to cause AV block/conduction disorder therefore will continue to hold. 9. Lactic acidosis mostly due to hypotension and hypoperfusion: Lactic acid has decreased. I do not think patient has suspected or confirmed focus of infection. Therefore sepsis or septic shock is ruled out. VTE prophylaxis: Pharmacological prophylaxis contraindicated in view of GI bleed, acute blood loss anemia and supratherapeutic INR. Bilateral SCDs. Living will/advanced directive/end of life care: Patient does have living will or advanced directive. His is power of assistant attorney general for health. After discussion of benefits/risks procedures involved with full code, DNR CC arrest and DNR CC, the patient and his opted for full code. Patient does want artificial life support including intubation, tube feed, ventilator and/chest compression, central venous catheter, vasopressor and DC shock if needed Clinical Impression(s) from Imaging Studies Brain CT 01/21/23 09:00 IMPRESSION: Chronic involutional changes of the brain. Partial opacification of the right maxillary and right frontal sinus Electronically Signed: Ravindra Sierra MD at 10:43 EDT , Chest X-Ray 01/21/23 09:30 IMPRESSION: No acute abnormality is seen. Echocardiogram 01/22/23 08:24 Interpretation Summary The estimated ejection fraction is 55-60 %. Normal LV systolic function Charges/Coding Visit Charges Inpatient E&M: 24889 Subs Hosp L3
--- NOTE | 2023-01-24 08:00 | EKG12_ITS ---
Test Reason : Blood Pressure : / mmHG Vent. Rate : 067 BPM Atrial Rate : 067 BPM P-R Int : 228 ms QRS Dur : 124 ms QT Int : 460 ms P-R-T Axes : 070 -61 079 degrees QTc Int : 486 ms Sinus rhythm with marked sinus arrhythmia with 1st degree A-V block Left axis deviation Right bundle branch block Abnormal ECG No previous ECGs available Confirmed by ANISA COLBERT, YECENIA ([id number]), scientific editor SOFIA CAMERON ([id number]) on 02/04/2023 12:26:02 PM Referred By: BAKARI Confirmed By:YECENIA LANGE MD
--- NOTE | 2023-01-24 09:42 | CASEMGMT ---
VERO called Soco at [facility] ([facility]) to see if they have had any luck in finding a bed for patient. Soco said they are working on it. VERO told Soco patient may be ready sooner than VERO originally thought. Soco said they will work harder on creating room for patient. VERO asked Tamika d/c planning and analysis manager to please send updates to [facility]. Keily GOMEZ
[2023-01-24] MEDS: DULoxetine Hcl 60 MG Capsule PO (10:08)
[2023-01-24] MEDS: Insulin Glargine-YFGN 100 UNIT/ML Pen 12 UNIT SC (10:08)
[2023-01-24 12:00] LABS: Bedside Glucose 199 mg/dL (74-106)
--- NOTE | 2023-01-24 13:30 | CASEMGMT ---
Discharge Planning SL notified that patient will not be returning. Tamika Encinas, Discharge Planning Asst.
--- NOTE | 2023-01-24 13:38 | PCM.PN.CARD ---
Documented by User: DENIA Wilkinson 01/24/23 13:45 Subjective Subjective Patient is still having Intermittent AV block type II. Had EGD yesterday. Patient laying down on the bed. Does not complain of chest pain shortness of breath or acute change. Patient is not very arousable to answer questions today. Objective Data Vital Signs: Vital Signs Temp Pulse Resp BP Pulse Ox O2 Del Method O2 Flow Rate 98.2 F 64 19 H 127/45 H 96 Room Air 2 01/24/23 04:00 01/24/23 04:00 01/24/23 04:00 01/24/23 04:00 01/24/23 07:20 01/24/23 08:20 01/21/23 15:00 Oxygen Flow Rate (L/min) 2 Oxygen Delivery Method Room Air Weight: 215 lb 2.738 oz Body Mass Index (BMI) 28.5 Intake & Output: Intake and Output for Last 24 Hours 01/22/23 01/23/23 01/24/23 23:59 23:59 23:59 Intake Total 2233.87 / 2233.87 564.75 / 564.75 1109.17 / 1109.17 Output Total 3030 / 3030 1475 / 1825 975 / 975 Balance -796.13 / -796.13 -910.25 / -1260.25 134.17 / 134.17 Lab / Micro Data 01/24/23 04:15 01/24/23 04:15 Labs: Laboratory Results - last 24 hr 01/23/23 17:21: POC Glucose 201 H 01/23/23 23:44: POC Glucose 179 H 01/24/23 04:15: WBC 13.1 H, RBC 3.15 L, Hgb 9.0 L, Hct 27.4 L, MCV 87.0, MCH 28.6, MCHC 32.8, RDW Std Deviation 49.8 H, RDW Coeff of Nathaniel 16.1 H, Plt Count 183, MPV 10.1, Immature Gran % (Auto) 1.500 H, Neut % (Auto) 82.8 H, Lymph % (Auto) 5.3 L, [place] % (Auto) 8.9, Eos % (Auto) 1.3, Baso % (Auto) 0.2, Absolute Neuts (auto) 10.9 H, Absolute Lymphs (auto) 0.70 L, Nucleated RBC % 0.3, PT 16.3 H, INR 1.3, Sodium 149 H, Potassium 4.0, Chloride 121 H, Carbon Dioxide 26.0, Anion Gap 2 L, BUN 51 H, Creatinine 1.44 H, Estim Creat Clear Calc 50.09, Est GFR (MDRD) Af Amer 62, Est GFR (MDRD) Non-Af 51 L, BUN/Creatinine Ratio 35.4 H, Glucose 193 H, Calcium 8.7, Phosphorus 2.4 L, Magnesium 1.9 01/24/23 11:43: POC Glucose 199 H Rhythm Strip Rhythm Strip: Sinus Rhythm Rate: 90 Ectopy: PAC(s) Cardiology Labs/Tests 01/24/23 04:15: WBC 13.1 H, RBC 3.15 L, Hgb 9.0 L, Hct 27.4 L, MCV 87.0, MCH 28.6, MCHC 32.8, Plt Count 183, MPV 10.1, Immature Gran % (Auto) 1.500 H, Neut % (Auto) 82.8 H, Lymph % (Auto) 5.3 L, [place] % (Auto) 8.9, Eos % (Auto) 1.3, Baso % (Auto) 0.2, Absolute Neuts (auto) 10.9 H, Nucleated RBC % 0.3, PT 16.3 H, INR 1.3, Sodium 149 H, Potassium 4.0, Chloride 121 H, Carbon Dioxide 26.0, Anion Gap 2 L, BUN 51 H, Creatinine 1.44 H, Est GFR (MDRD) Af Amer 62, Est GFR (MDRD) Non-Af 51 L, BUN/Creatinine Ratio 35.4 H, Glucose 193 H, Calcium 8.7, Phosphorus 2.4 L, Magnesium 1.9 Physical Exam Narrative Patient lethargic, did discuss with nursing staff. Patient is having intermittent AV block type II. Const no apparent distress and average body habitus Orientation / Consciousness: lethargic HEENT normocephalic, head/scalp atraumatic, hearing grossly normal bilaterally, external ears normal, external nose normal and moist oral mucous membranes Eyes PERRL, EOMs intact bilaterally, conjunctivae normal and no scleral icterus Neck no lymphadenopathy, supple and no JVD Resp normal respiratory effort Resp Narrative: diminished t/o Cardio Rate: bradycardia Rhythm: abnormal rhythm regularly irregular GI normal to inspection, nondistended, normoactive bowel sounds, soft to palpation, non-tender and non-distended Extremity normal to inspection, normal capillary refill, no clubbing, cyanosis or edema and no pedal edema Neuro oriented x3, CN's II-XII intact bilaterally, moves all extremities and no focal motor deficits Psych cooperative and affect normal Assessment & Plan Assessment/Plan (1) Second degree AV block, Mobitz type II: (2) HTN (hypertension): (3) History of thoracic aortic aneurysm repair: (4) History of pulmonary embolism: (5) Valvular heart disease: (6) Anemia: PLAN: Plan Patient is continue to have intermittent AV block type II. It was felt that his second-degree AV block type II is likely medication related. His IV medication has been discontinued. He is no longer on metoprolol. Did review case with Dr. Mao and Dr. Chandra. Did like to continue to monitor while patient is in the hospital with telemetry. Did leave a message with to discuss options and rhythms. At discharge would plan on obtaining a 14-day event monitor with patient. In regards to his AAA and Aortic valve repair, this appears stable. He did undergo an EGD yesterday. He is being followed by GI. Charges/Coding Visit Charges Inpatient E&M: 52013 Subs Hosp L2 Documented by User: Dr. Lizzeth Riggs MD 01/24/23 16:25 Lab / Micro Data 01/24/23 04:15 01/24/23 04:15 Assessment & Plan Assessment/Plan (1) Second degree AV block, Mobitz type II: (2) HTN (hypertension): (3) History of thoracic aortic aneurysm repair: (4) History of pulmonary embolism: (5) Valvular heart disease: (6) Anemia: PLAN: Plan Patient is continue to have intermittent AV block type II. It was felt that his second-degree AV block type II is likely medication related. His IV medication has been discontinued. He is no longer on metoprolol. Did review case with Dr. Mao and Dr. Chandra. Did like to continue to monitor while patient is in the hospital with telemetry. Did leave a message with to discuss options and rhythms. At discharge would plan on obtaining 48-hour Holter monitor In regards to his AAA and Aortic valve repair, this appears stable. He did undergo an EGD yesterday. He is being followed by GI. Patient will be monitored for 48 hours Holter monitor and will be followed by Dr. Chandra Patient has been stable hemodynamically.
--- NOTE | 2023-01-24 14:36 | CASEMGMT ---
VERO called Soco with [facility]. [facility] is hopeful to have a bed for patient soon. VERO asked if patient should go back to [facility] until a bed opens up and Soco said no as she thinks she can get things figured out soon. Keily Muniz PUNCHER PATRICIA
--- NOTE | 2023-01-24 15:10 | CASEMGMT ---
SW received a call from Soco at [facility] and they will have a bed for patient tomorrow. Plan: [facility] under skilled level of care. Keily GOMEZ
[2023-01-24] MEDS: Sucralfate 1 GM Tablet PO (15:38)
--- NOTE | 2023-01-24 17:03 | PN.GI_ITS ---
Subjective Subjective Patient laying in bed with at at the bedside. He underwent an upper endoscopy yesterday. He was discovered to have severe ulcerations likely secondary to medications in his duodenum. There was some active bleeding and was treated endoscopically. Objective Data Objective Data Vital Signs: Vital Signs Temp Pulse Resp BP Pulse Ox O2 Del Method O2 Flow Rate 98.2 F 58 L 16 131/57 H 94 Room Air 93 01/24/23 16:00 01/24/23 16:00 01/24/23 16:00 01/24/23 16:00 01/24/23 10:00 01/24/23 16:00 01/24/23 16:00 Oxygen Flow Rate (L/min) 93 Oxygen Delivery Method Room Air Weight: 215 lb 2.738 oz Body Mass Index (BMI) 28.5 Intake & Output: Intake and Output for Last 24 Hours 01/22/23 01/23/23 01/24/23 23:59 23:59 23:59 Intake Total 2233.87 / 2233.87 564.75 / 564.75 1109.17 / 1109.17 Output Total 3030 / 3030 1475 / 1825 975 / 975 Balance -796.13 / -796.13 -910.25 / -1260.25 134.17 / 134.17 Lab / Micro Data 01/24/23 04:15 01/24/23 04:15 Labs: Laboratory Results - last 24 hr 01/23/23 17:21: POC Glucose 201 H 01/23/23 23:44: POC Glucose 179 H 01/24/23 04:15: WBC 13.1 H, RBC 3.15 L, Hgb 9.0 L, Hct 27.4 L, MCV 87.0, MCH 28.6, MCHC 32.8, RDW Std Deviation 49.8 H, RDW Coeff of Nathaniel 16.1 H, Plt Count 183, MPV 10.1, Immature Gran % (Auto) 1.500 H, Neut % (Auto) 82.8 H, Lymph % (Auto) 5.3 L, [place] % (Auto) 8.9, Eos % (Auto) 1.3, Baso % (Auto) 0.2, Absolute Neuts (auto) 10.9 H, Absolute Lymphs (auto) 0.70 L, Nucleated RBC % 0.3, PT 16.3 H, INR 1.3, Sodium 149 H, Potassium 4.0, Chloride 121 H, Carbon Dioxide 26.0, Anion Gap 2 L, BUN 51 H, Creatinine 1.44 H, Estim Creat Clear Calc 50.09, Est GFR (MDRD) Af Amer 62, Est GFR (MDRD) Non-Af 51 L, BUN/Creatinine Ratio 35.4 H, Glucose 193 H, Calcium 8.7, Phosphorus 2.4 L, Magnesium 1.9 01/24/23 11:43: POC Glucose 199 H Micro: Microbiology 01/21/23 09:15 Stool Stool Occult Blood (KLAUS) - Final Occult Blood Positive Rhythm Strip Rhythm Strip: Sinus Rhythm Rate: 90 Ectopy: PAC(s) Physical Exam Narrative Patient laying in bed. He does answer questions but is very sleepy. Const no apparent distress and average body habitus Orientation / Consciousness: lethargic HEENT normocephalic, head/scalp atraumatic, hearing grossly normal bilaterally, external ears normal, external nose normal and moist oral mucous membranes Eyes PERRL, EOMs intact bilaterally, conjunctivae normal and no scleral icterus Neck no lymphadenopathy, supple and no JVD Resp normal respiratory effort Resp Narrative: diminished t/o Cardio Rate: bradycardia Rhythm: abnormal rhythm regularly irregular GI normal to inspection, nondistended, normoactive bowel sounds, soft to palpation, non-tender and non-distended Extremity normal to inspection, normal capillary refill, no clubbing, cyanosis or edema and no pedal edema Neuro oriented x3, CN's II-XII intact bilaterally, moves all extremities and no focal motor deficits Psych cooperative and affect normal Assessment & Plan Assessment/Plan (1) Anemia: QUALIFIERS: Anemia type: iron deficiency Iron deficiency anemia type: other iron deficiency Qualified Code(s): D50.8 - Other iron deficiency anemias (2) Warfarin-induced coagulopathy: (3) ABLA (acute blood loss anemia): PLAN: Plan 77-year-old with past medical history of PE, DVT presents with worsening shor tness of breath and fatigue and discovered to have a significant anemia. Stools were checked for blood and neuro positive. He underwent an upper endoscopy after his INR was corrected and was discovered to have severe ulcerations of his duodenum. Biopsies were taken in the stomach for H. pylori and biopsies also were taken. Ulcerations were treated endoscopically. His hemoglobin seems to be stable. Recommendation: PPI can be switched to Protonix 40 mg p.o. every 12 hours. He will need sulcralfate 1 g p.o. 3 times a day for approximately 8 to 12 weeks. He can take the Protonix for 12 weeks. He will need repeat upper endoscopy in approximately 8 to 12 weeks to ensure healing. Charges/Coding Visit Charges Inpatient E&M: 88289 Subs Hosp L3
[2023-01-24 18:44] LABS: Bedside Glucose 208 mg/dL (74-106)
--- NOTE | 2023-01-24 19:42 | EKG12_ITS ---
Test Reason : RHYTHM CHANGE Blood Pressure : / mmHG Vent. Rate : 074 BPM Atrial Rate : 105 BPM P-R Int : 216 ms QRS Dur : 138 ms QT Int : 506 ms P-R-T Axes : 000 -58 047 degrees QTc Int : 561 ms Sinus tachycardia with 2nd degree A-V block (Mobitz II) with 2:1 A-V conduction Right bundle branch block Left anterior fascicular block Bifascicular block Abnormal ECG Confirmed by ANISA COLBERT, YECENIA ([id number]), editor & co founder LÓPEZ BELTRE ([id number]) on 01/28/2023 10:43:44 AM Referred By: Confirmed By:YECENIA LANGE MD
--- NOTE | 2023-01-24 20:22 | PN.HOSP_ITS ---
Hospitalist Note Recurrent type II AV block which from notes has been intermittent. He is asymptomatic. Cardiology following and made aware also by RN that it is r ecurrent.
[2023-01-25 01:53] VITALS: BP 128/42; PULSE 52; RESP 18; TEMP 36.8; O2SAT 94
[2023-01-25] MEDS: Insulin Lispro 100 UNIT/ML INSULN.PEN SC ×3 (01:55→17:08)
[2023-01-25 02:27] LABS: Bedside Glucose 174 mg/dL (74-106)
[2023-01-25 05:27] VITALS: BMI 28.2
[2023-01-25 06:02] LABS: Bedside Glucose 178 mg/dL (74-106)
[2023-01-25 06:26] LABS: Absolute Lymphocyte Count 0.68 X10^3/uL (0.83-4.51); Absolute Neutrophil Count 9.6 X10^3/uL (2.0-7.7); Basophil# 0.02 X10^3/uL; Basophil% 0.2 % (0-1); Eosinophil# 0.11 X10^3/uL; Hematocrit 25.4 % (40-54); Hemoglobin 8.2 g/dL (13.0-16.5); Lymphocyte # 0.68 X10^3/ul (0.83-4.51); Lymphocyte % 5.9 % (19-41); Mean Corp Hgb Conc 32.3 g/dL (32-36); Mean Corpuscular Hgb 28.2 pg (27.0-32.0); Mean Corpuscular Volume 87.3 fL (80-94); Mean Platelet Vol. 10.2 fl (6.2-12.0); Monocyte% 7.8 % (0-10); NRBC Flagged by Analyzer 0.3 % (0-5); Neutrophil # 9.59 X10^3/uL (2.7-7.7); Neutrophil % 83.4 % (47-70); Platelet Count 209 K/mm3 (150-450); RBC Distribution Width CV 16.1 % (11.6-14.6); RBC Distribution Width SD 50.3 fl (35.1-43.9); Red Blood Count 2.91 M/mm3 (4.6-6.2); White Blood Count 11.5 K/mm3 (4.4-11.0)
[2023-01-25 06:35] LABS: International Normalized Ratio 1.6; Prothrombin Time (Protime)PT. 19.1 SECONDS (11.7-14.9)
[2023-01-25 07:10] LABS: Anion Gap 5 (5-15); BUN 37 mg/dL (7-18); BUN/Creat Ratio 28.9 RATIO (10-20); Calcium,Total 8.8 mg/dL (8.5-10.1); Chloride 120 mmol/L (98-107); Creatinine, Serum 1.28 mg/dL (0.70-1.30); EST Glomerular Filtration Rate 58 mL/min (>60); Est Glom Filt Rate - Afr Amer 70 mL/min (>60); Estimated Creatinine Clearance 56.35 ml/min; Glucose 193 mg/dL (74-106); Magnesium 1.9 mg/dL (1.6-2.6); Potassium 3.5 mmol/L (3.5-5.1); Sodium Level 149 mmol/L (136-145)
[2023-01-25 08:00] VITALS: BP 131/56; PULSE 56; RESP 18; TEMP 36.8; O2SAT 94
--- NOTE | 2023-01-25 09:28 | PN.HOSP_ITS ---
Reason for Visit Reason for Visit: Diagnoses Other iron deficiency anemias (01/21/23) Acute posthemorrhagic anemia (01/21/23) Anemia, unspecified (01/21/23) Hemorrhagic disorder due to extrinsic circulating anticoagulants (01/21/23) Essential (primary) hypertension (01/21/23) Endocarditis, valve unspecified (01/21/23) Atrioventricular block, second degree (01/21/23) Gastrointestinal hemorrhage, unspecified (01/21/23) Adverse effect of anticoagulants, initial encounter (01/21/23) Personal history of pulmonary embolism (01/21/23) Personal history of other diseases of the circulatory system (01/21/23) Other specified postprocedural states (01/21/23) Subjective Subjective Follow-up for intermittent AV block, Mobitz type II. Hypernatremia and hyperchloremia. Objective Data Objective Data Vital Signs: Vital Signs Temp Pulse Resp BP Pulse Ox O2 Del Method O2 Flow Rate 98.2 F 52 L 18 128/42 H 94 Room Air 93 01/25/23 01:53 01/25/23 01:53 01/25/23 01:53 01/25/23 01:53 01/25/23 01:53 01/25/23 04:00 01/24/23 16:00 Oxygen Flow Rate (L/min) 93 Oxygen Delivery Method Room Air Weight: 213 lb 2.992 oz Body Mass Index (BMI) 28.2 Intake & Output: Intake and Output for Last 24 Hours 01/23/23 01/24/23 01/25/23 23:59 23:59 23:59 Intake Total 564.75 / 564.75 2205.42 / 2205.42 364.17 / 364.17 Output Total 1475 / 1825 1075 / 1175 350 / 350 Balance -910.25 / -1260.25 1130.42 / 1030.42 14. Lab / Micro Data 01/25/23 05:31 01/25/23 05:31 Labs: Laboratory Results - last 24 hr 01/24/23 11:43: POC Glucose 199 H 01/24/23 18:16: POC Glucose 208 H 01/25/23 01:50: POC Glucose 174 H 01/25/23 05:31: WBC 11.5 H, RBC 2.91 L, Hgb 8.2 L, Hct 25.4 L, MCV 87.3, MCH 28.2, MCHC 32.3, RDW Std Deviation 50.3 H, RDW Coeff of Nathaniel 16.1 H, Plt Count 209, MPV 10.2, Immature Gran % (Auto) 1.700 H, Neut % (Auto) 83.4 H, Lymph % (Auto) 5.9 L, Frontier % (Auto) 7.8, Eos % (Auto) 1.0, Baso % (Auto) 0.2, Absolute Neuts (auto) 9.6 H, Absolute Lymphs (auto) 0.68 L, Nucleated RBC % 0.3, PT 19.1 H, INR 1.6, Sodium 149 H, Potassium 3.5, Chloride 120 H, Carbon Dioxide 24.0, Anion Gap 5, BUN 37 H, Creatinine 1.28, Estim Creat Clear Calc 56.35, Est GFR (MDRD) Af Amer 70, Est GFR (MDRD) Non-Af 58 L, BUN/Creatinine Ratio 28.9 H, Glucose 193 H, Calcium 8.8, Phosphorus 2.0 L, Magnesium 1.9 01/25/23 05:45: POC Glucose 178 H Micro: Microbiology 01/21/23 09:15 Stool Stool Occult Blood (KLAUS) - Final Occult Blood Positive Rhythm Strip Rhythm Strip: Sinus Rhythm Rate: 90 Ectopy: PAC(s) Physical Exam Narrative Seen and examined. Discussed with the nursing staff. Patient is still having Mobitz type II AV block, but is not following the pattern of 3:1 although it is less frequent. Heart rate in 50s.. Discussed with the demolition crane operator. No chest pain or tightness. Physical exam General: Awake more alert oriented x3, Cooperative. BMI 28.9 KG per square meter. HEENT: Atraumatic, PERRLA, EOMI, Normocephalic Oral: Oral mucosa moist. No Gingival or Mucosal Lesions/ Ulcerations Neck: Supple, No JVD, Negative Carotid Bruits Lungs: Air entry diminished in bilateral lung bases. No crepitation/rhonchi Cardiovascular: Irregular sinusrhythm, P wave present. Bradycardia. Normal S1, Normal S2, pansystolic murmur over cardiac apex. Abdomen: Bowel Sounds Present, Soft, Non Tender, Non-Distended : No renal angle tenderness. No suprapubic tenderness. Extremities: No edema, Capillary Refill Less than 3 Seconds Skin: No rashes, No breakdown Musculoskeletal: Muscle strength 4+/5 at knee and hip joints. ROM restricted. No Tenderness to Palpation of Joints or Extremities Neurological: Cranial nerves II-XII grossly intact, DTR 2+/4 and Symmetrical, Neuro grossly intact Psych/Mental Status: Flat affect. Amnesia/cognitive deficit. Assessment & Plan Assessment/Plan (1) Upper gastrointestinal bleeding: (2) ABLA (acute blood loss anemia): PLAN: Plan This is a 77-year-old gentleman being admitted from [facility] for multiple episodes of syncope and upper GI bleed 1. Acute blood loss anemia and hypotension due to upper GI bleed: Patient is being admitted in ICU. His baseline hemoglobin is 13.1 which dropped to 10.7. BP was low 108/70 with baseline 143/64. Patient was resuscitated with IV fluid last blood pressure 133/55. 2 units PRBC typed and crossmatched. Keep NPO. Continue IV fluid Ringer lactate. Patient started on IV pantoprazole drip after bolus and octreotide drip. GI consulted. H&H monitoring. Patient has history of gastric ulcer in the past when he had EGD in early . Had last colonoscopy less than a year was normal as per the . His medical care is under [facility]. 01/22: Hemoglobin dropped to 8.9. Patient had 2 units of PRBC transfusion and repeat hemoglobin 10.2. Octreotide discontinued as mentioned below. 01/23: Hemoglobin 8.7. Leukocytosis improving. Most likely reactive. Protonix drip changed to 40 mg IV every 12 hourly 01/24: Hemoglobin 9.0. Leukocytosis improving. Platelet count normal. 01/25: Hemoglobin 8.2. Continue PPI. Laboratory Results 01/22/23 11:32: Total Protein (PEP) 4.4 L, Globulin 1.9 L, Aldolase 1.5 L, IgG Total 417 L, IgG1 237 L, IgG2 115 L, IgG3 20, IgG4 8, IgA 194, IgM 15, IgE 399, Immunofixation Screen Comment, Albumin (DEBI) 2.5 L, Albumin/Globulin (DEBI) 1.4, Aonig-8-Mknqaojfq DEBI 0.2, Lzoax-6-Ngstrxxjg DEBI 0.6, Beta-Globulins (DEBI) 0.7, Gamma Globulins (DEBI) 0.3 L, DEBI Comments Comment, c-ANCA Antibody <1:20, Atypical p-ANCA <1:20, p-ANCA Antibody <1:20 01/24/23 18:16: POC Glucose 208 H 01/25/23 01:50: POC Glucose 174 H 01/25/23 05:31: WBC 11.5 H, RBC 2.91 L, Hgb 8.2 L, Hct 25.4 L, MCV 87.3, MCH 28.2, MCHC 32.3, RDW Std Deviation 50.3 H, RDW Coeff of Nathaniel 16.1 H, Plt Count 209, MPV 10.2, Immature Gran % (Auto) 1.700 H, Neut % (Auto) 83.4 H, Lymph % (Auto) 5.9 L, Frontier % (Auto) 7.8, Eos % (Auto) 1.0, Baso % (Auto) 0.2, Absolute Neuts (auto) 9.6 H, Absolute Lymphs (auto) 0.68 L, Nucleated RBC % 0.3, PT 19.1 H, INR 1.6, Sodium 149 H, Potassium 3.5, Chloride 120 H, Carbon Dioxide 24.0, Anion Gap 5, BUN 37 H, Creatinine 1.28, Estim Creat Clear Calc 56.35, Est GFR (MDRD) Af Amer 70, Est GFR (MDRD) Non-Af 58 L, BUN/Creatinine Ratio 28.9 H, Glucose 193 H, Calcium 8.8, Phosphorus 2.0 L, Magnesium 1.9 01/25/23 05:45: POC Glucose 178 H 01/25/23 12:17: POC Glucose 175 H 2 Syncopal episode most likely due to hypotension/GI bleed: As per the nursing staff patient had multiple shorts, brief syncopal episodes with intermittent confusion in between. Patient had echo in June 2022 reported EF 65% moderate concentric LVH. Mild MR. Orthostatic BP when patient is stable 3. Transient A-fib and Mobitz type II, second-degree AV block: Patient is started having irregular heartbeat initially A-fib postmidnight and then about 5 AM Mobitz type II AV block. Initial EKG was normal sinus rhythm admission H&P. Second EKG at 9:26 PM shows sinus rhythm with second-degree Mobitz type II block but there was 2 dropped heartbeat in EKG. night monitor shows heart rate slowed down to 48 to 60/min. EKG in the morning about 6 AM today shows sinus rhythm with second-degree Mobitz type II block, RBBB, LAFB bifascicular block. Patient has history of bifascicular block. I talked to the patient's and informed her about the update. Patient has history of ascending aortic aneurysm and had that repaired along with aortic valve in [facility]. His demolition crane operator is Dr. Huston in [facility]. I think this is most probably due to start of the octreotide drip as patient was in sinus normal rhythm at time of admission. Octreotide discontinued. Pressure Washer consulted. 2D echo ordered. 01/23: Echo states EF 55 to 60%, normal LV systolic function. Trivial MR. Mild diffuse aortic valve calcification. Normal left atrium. Plan: Pressure Washer Dr. Ling will talk to Dr. Chandra regarding assessment for pacemaker 01/24: Patient has hypernatremia and hyperchloremia. IV fluid D5W started. Patient is still has AV block, P waves but rhythm is irregular. Twelve-lead EKG ordered. Discussed with the demolition crane operator. Dr. Ling will talk to Dr. Chandra. 01/25: For now plan is to monitor. No plan for pacemaker as per the demolition crane operator. night monitor shows irregular heartbeat , Mobitz type II. Heart rate in 50s. BP normal. Patient has hypernatremia and hyperchloremia. IV fluid D5W +40 mEq KCl at 100 mL/h. Net positive fluid balance 1160 mill. Discussed with the nursing. 3. Essential hypertension and dyslipidemia-hold antihypertensive medications. Statin when oral is allowed. Blood pressure has recovered to 114/63 but patient still has weak radial pulse. Carotid pulses good. Hold antihypertensive medications. 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 01/23: Glucose between 150?200. Accu-Chek every 6 hourly with coverage of sliding scale. Patient is NPO. #5 DVT on warfarin with supratherapeutic INR: Patient on warfarin. INR 4.2. Vitamin K 5 mg IV given in ED. 01/23: Repeat INR is 1.4. #6 BPH-patient is on Flomax #7 acute debility, disequilibrium: PT and OT ordered. #8 possible depression versus early dementia: Patient is on antidepressant and Aricept. Will resume once oral is allowed. 01/24: Aricept is likely to cause AV block/conduction disorder therefore will continue to hold. 9. Lactic acidosis mostly due to hypotension and hypoperfusion: Lactic acid has decreased. I do not think patient has suspected or confirmed focus of infection. Therefore sepsis or septic shock is ruled out. VTE prophylaxis: Pharmacological prophylaxis contraindicated in view of GI bleed, acute blood loss anemia and supratherapeutic INR. Bilateral SCDs. Living will/advanced directive/end of life care: Patient does have living will or advanced directive. His is power of estate attorney for health. After discussion of benefits/risks procedures involved with full code, DNR CC arrest and DNR CC, the patient and his opted for full code. Patient does want artificial life support including intubation, tube feed, ventilator and/chest compression, central venous catheter, vasopressor and DC shock if needed Clinical Impression(s) from Imaging Studies Brain CT 01/21/23 09:00 IMPRESSION: Chronic involutional changes of the brain. Partial opacification of the right maxillary and right frontal sinus Electronically Signed: Ravindra Sierra MD at 10:43 EDT , Chest X-Ray 01/21/23 09:30 IMPRESSION: No acute abnormality is seen. Echocardiogram 01/22/23 08:24 Interpretation Summary The estimated ejection fraction is 55-60 %. Normal LV systolic function Charges/Coding Visit Charges Inpatient E&M: 39018 Subs Hosp L2
[2023-01-25 10:09] LABS: Albumin 2.5 g/dL (2.9-4.4); Aldolase 1.5 U/L (3.3-10.3); Alpha-1-Globulins 0.2 g/dL (0.0-0.4); Alpha-2-Globulins 0.6 g/dL (0.4-1.0); Cytoplasmic Ab (C-ANCA) <1:20 titer (Neg:<1:20); Gamma Globulin 0.3 g/dL (0.4-1.8); IgG, Quant 417 mg/dL (603-1613); Immunoglobulin A 194 mg/dL (61-437); Immunoglobulin E 399 IU/mL (6-495); Immunoglobulin G, Subclass 1 237 mg/dL (248-810); Immunoglobulin G, Subclass 2 115 mg/dL (130-555); Immunoglobulin G, Subclass 3 20 mg/dL (15-102); Immunoglobulin G, Subclass 4 8 mg/dL (2-96); Immunoglobulin M 15 mg/dL (15-143); PROEL- TOTAL PROTEIN 4.4 g/dL (6.0-8.5); Perinuclear Ab (P-ANCA) <1:20 titer (Neg:<1:20)
--- NOTE | 2023-01-25 10:24 | CASEMGMT ---
Physician said patient will be ready over the weekend. VERO asked Tamika d/c capacity planning engineer to please let [facility] ([facility] know). SW attempted to call patient's , but there was no answer and no voice mail. SW will continue to try and reach patient's . Plan: d/c to [facility] under skilled level of care. Keily Muniz RAILROADER PATRICIA
--- NOTE | 2023-01-25 10:24 | CASEMGMT ---
Discharge Planning Clinical updates and possible weekend dc plans sent to [facility] via [employer]. Tamika Encinas, Discharge Planning Asst.
--- NOTE | 2023-01-25 10:46 | CASEMGMT ---
SW attempted again to call patient's with same result, no answer and no voice mail. Keily Muniz CONTACT LENS EDGE BUFFER PATRICIA
--- NOTE | 2023-01-25 11:30 | CASEMGMT ---
Patient's Lorena called in to hospital. SW spoke with Lorena and let her know [facility] will have a bed for patient and per physician patient will likely be ready over the weekend. Lorena was upset as patient is on IV's, cannot walk, and is not eating so how could he be discharged. SW explained that patient will not be on the IV's at d/c and miguel if he is SNF's can do IV's. SW explained that patient will have a diet and be able to tolerate it before physician would discharge. SW also explained that patient's do not have to walk before being discharged. SW explained [facility] is an acute medical facility and once patient's medical issues have been optimized patient will move on to rehabilitation. Lorena was wondering about patient's diagnosis. Lorena said she has been in to see patient and no physician ever spoke with her. SW asked Lorena if she asked to speak with a physician when she was at [facility]. SW explained that physicians do not automatically know family is present to come and speak with family. SW explained when she is at [facility] she should request to talk with physician. SW asked if Lorena would like to see if physician could give her a call. Lorena told SW she is going out to mow the lawn and it will take her 3 hours. Lorena said she will talk with her son. Plan: d/c to [facility] under skilled level of care. Physicians will transport patient via cot. Keily GOMEZ
[2023-01-25 12:35] LABS: Bedside Glucose 175 mg/dL (74-106)
--- NOTE | 2023-01-25 13:08 | PN.CARD_ITS ---
Documented by User: DENIA Wilkinson 01/25/23 14:14 Subjective Subjective Patient is still having Intermittent AV block type II. Had EGD yesterday. Patient laying down on the bed. Does not complain of chest pain shortness of breath or acute change. Patient is not very arousable to answer questions today. Objective Data Vital Signs: Vital Signs Temp Pulse Resp BP Pulse Ox O2 Del Method O2 Flow Rate 98.2 F 52 L 18 128/42 H 94 Room Air 93 01/25/23 01:53 01/25/23 01:53 01/25/23 01:53 01/25/23 01:53 01/25/23 01:53 01/25/23 04:00 01/24/23 16:00 Oxygen Flow Rate (L/min) 93 Oxygen Delivery Method Room Air Weight: 213 lb 2.992 oz Body Mass Index (BMI) 28.2 Intake & Output: Intake and Output for Last 24 Hours 01/23/23 01/24/23 01/25/23 23:59 23:59 23:59 Intake Total 564.75 / 564.75 2205.42 / 2205.42 364.17 / 364.17 Output Total 1475 / 1825 1075 / 1175 350 / 350 Balance -910.25 / -1260.25 1130.42 / 1030.42 14.17 / 14.17 Lab / Micro Data 01/25/23 05:31 01/25/23 05:31 Labs: Laboratory Results - last 24 hr 01/22/23 11:32: Total Protein (PEP) 4.4 L, Globulin 1.9 L, Aldolase 1.5 L, IgG Total 417 L, IgG1 237 L, IgG2 115 L, IgG3 20, IgG4 8, IgA 194, IgM 15, IgE 399, Immunofixation Screen Comment, Albumin (DEBI) 2.5 L, Albumin/Globulin (DEBI) 1.4, Jwdvr-9-Rnekwdfns DEBI 0.2, Abnno-7-Iqolubswp DEBI 0.6, Beta-Globulins (DEBI) 0.7, Gamma Globulins (DEBI) 0.3 L, DEBI Comments Comment, c-ANCA Antibody <1:20, Atypical p-ANCA <1:20, p-ANCA Antibody <1:20 01/24/23 18:16: POC Glucose 208 H 01/25/23 01:50: POC Glucose 174 H 01/25/23 05:31: WBC 11.5 H, RBC 2.91 L, Hgb 8.2 L, Hct 25.4 L, MCV 87.3, MCH 28.2, MCHC 32.3, RDW Std Deviation 50.3 H, RDW Coeff of Nathaniel 16.1 H, Plt Count 209, MPV 10.2, Immature Gran % (Auto) 1.700 H, Neut % (Auto) 83.4 H, Lymph % (Auto) 5.9 L, Benson % (Auto) 7.8, Eos % (Auto) 1.0, Baso % (Auto) 0.2, Absolute Neuts (auto) 9.6 H, Absolute Lymphs (auto) 0.68 L, Nucleated RBC % 0.3, PT 19.1 H, INR 1.6, Sodium 149 H, Potassium 3.5, Chloride 120 H, Carbon Dioxide 24.0, Anion Gap 5, BUN 37 H, Creatinine 1.28, Estim Creat Clear Calc 56.35, Est GFR (MDRD) Af Amer 70, Est GFR (MDRD) Non-Af 58 L, BUN/Creatinine Ratio 28.9 H, Glucose 193 H, Calcium 8.8, Phosphorus 2.0 L, Magnesium 1.9 01/25/23 05:45: POC Glucose 178 H 01/25/23 12:17: POC Glucose 175 H Rhythm Strip Rhythm Strip: Sinus Rhythm Rate: 90 Ectopy: PAC(s) Cardiology Labs/Tests 01/25/23 05:31: WBC 11.5 H, RBC 2.91 L, Hgb 8.2 L, Hct 25.4 L, MCV 87.3, MCH 28.2, MCHC 32.3, Plt Count 209, MPV 10.2, Immature Gran % (Auto) 1.700 H, Neut % (Auto) 83.4 H, Lymph % (Auto) 5.9 L, Benson % (Auto) 7.8, Eos % (Auto) 1.0, Baso % (Auto) 0.2, Absolute Neuts (auto) 9.6 H, Nucleated RBC % 0.3, PT 19.1 H, INR 1.6, Sodium 149 H, Potassium 3.5, Chloride 120 H, Carbon Dioxide 24.0, Anion Gap 5, BUN 37 H, Creatinine 1.28, Est GFR (MDRD) Af Amer 70, Est GFR (MDRD) Non-Af 58 L, BUN/Creatinine Ratio 28.9 H, Glucose 193 H, Calcium 8.8, Phosphorus 2.0 L, Magnesium 1.9 Physical Exam Narrative Patient lethargic, did discuss with nursing staff. Patient is having intermittent AV block type II. Const no apparent distress and average body habitus Orientation / Consciousness: lethargic HEENT normocephalic, head/scalp atraumatic, hearing grossly normal bilaterally, external ears normal, external nose normal and moist oral mucous membranes Eyes PERRL, EOMs intact bilaterally, conjunctivae normal and no scleral icterus Neck no lymphadenopathy, supple and no JVD Resp normal respiratory effort Resp Narrative: diminished t/o Cardio Rate: bradycardia Rhythm: abnormal rhythm regularly irregular GI normal to inspection, nondistended, normoactive bowel sounds, soft to palpation, non-tender and non-distended Extremity normal to inspection, normal capillary refill, no clubbing, cyanosis or edema and no pedal edema Neuro oriented x3, CN's II-XII intact bilaterally, moves all extremities and no focal motor deficits Psych cooperative and affect normal Assessment & Plan Assessment/Plan (1) Second degree AV block, Mobitz type II: (2) HTN (hypertension): (3) History of thoracic aortic aneurysm repair: (4) History of pulmonary embolism: (5) Valvular heart disease: (6) Anemia: QUALIFIERS: Anemia type: iron deficiency Iron deficiency anemia type: other iron deficiency Qualified Code(s): D50.8 - Other iron deficiency anemias PLAN: Plan Patient is continue to have intermittent AV block type II. It was felt that his second-degree AV block type II is likely medication related. His IV medication has been discontinued. He is no longer on metoprolol. Did review case with Dr. Riggs and Dr. Chandra. Will continue to monitor while patient is in the hospital with telemetry. Did speak with POC, at this time she would like to discuss with family in regards to pursuing a PPM if his type II block continues. At discharge would plan on obtaining 48-hour Holter monitor In regards to his AAA and Aortic valve repair, this appears stable. He did undergo an EGD yesterday. He is being followed by GI. Patient has been stable hemodynamically. Charges/Coding Visit Charges Inpatient E&M: 00222 Subs Hosp L2 Documented by User: Dr. Lizzeth Riggs MD 01/25/23 16:08 Lab / Micro Data 01/25/23 05:31 01/25/23 05:31 Assessment & Plan Assessment/Plan (1) Second degree AV block, Mobitz type II: (2) HTN (hypertension): (3) History of thoracic aortic aneurysm repair: (4) History of pulmonary embolism: (5) Valvular heart disease: (6) Anemia: QUALIFIERS: Anemia type: iron deficiency Iron deficiency anemia type: other iron deficiency Qualified Code(s): D50.8 - Other iron deficiency anemias PLAN: Plan Patient is continue to have intermittent AV block type II. It was felt that his second-degree AV block type II is likely medication related. His IV medication has been discontinued. He is no longer on metoprolol. Did review case with Dr. Riggs and Dr. Chandra. Will continue to monitor while patient is in the hospital with telemetry. Did speak with POC, at this time she would like to discuss with family in regards to pursuing a PPM if his type II block continues. At discharge would plan on obtaining 48-hour Holter monitor In regards to his AAA and Aortic valve repair, this appears stable. He did undergo an EGD yesterday. He is being followed by GI. Patient has been stable hemodynamically. Concur with the cardiac care plan as per midlevel notes and documentation Patient to follow-up as able bodied watchman Dr. Chandra with the results of the event monitor. To evaluate for permanent pacemaker implant.
[2023-01-25 14:00] VITALS: BP 128/78; PULSE 59; RESP 18; TEMP 36.6; O2SAT 96
[2023-01-25] MEDS: Sucralfate 1 GM Tablet PO (17:12)
[2023-01-25 17:43] LABS: Bedside Glucose 192 mg/dL (74-106)
[2023-01-25 20:01] VITALS: O2SAT 94
[2023-01-25 22:11] VITALS: BP 130/47; PULSE 50; RESP 18; TEMP 36.9; O2SAT 93
[2023-01-25] MEDS: Pantoprazole Sodium 40 MG Tablet PO (22:18)
[2023-01-25] MEDS: Tamsulosin HCl 0.4 MG Capsule PO (22:19)
[2023-01-25] MEDS: Atorvastatin Calcium 40 MG Tablet PO (22:19)
[2023-01-26] MEDS: Insulin Lispro 100 UNIT/ML INSULN.PEN SC ×3 (00:54→13:02)
[2023-01-26 01:14] LABS: Bedside Glucose 199 mg/dL (74-106)
[2023-01-26 03:22] VITALS: BP 128/53; PULSE 50; RESP 18; TEMP 37.2; O2SAT 93
[2023-01-26 03:30] VITALS: O2SAT 92
[2023-01-26] MEDS: Sucralfate 1 GM Tablet PO ×2 (06:17→10:40)
[2023-01-26 06:55] LABS: Bedside Glucose 226 mg/dL (74-106)
[2023-01-26 07:17] LABS: Absolute Lymphocyte Count 0.69 X10^3/uL (0.83-4.51); Absolute Neutrophil Count 6.7 X10^3/uL (2.0-7.7); Basophil# 0.01 X10^3/uL; Basophil% 0.1 % (0-1); Eosinophil# 0.14 X10^3/uL; Eosinophils% 1.6 % (0-5); Hematocrit 27.1 % (40-54); Hemoglobin 8.6 g/dL (13.0-16.5); Lymphocyte # 0.69 X10^3/ul (0.83-4.51); Lymphocyte % 8.1 % (19-41); Mean Corp Hgb Conc 31.7 g/dL (32-36); Mean Corpuscular Hgb 28.1 pg (27.0-32.0); Mean Corpuscular Volume 88.6 fL (80-94); Mean Platelet Vol. 9.9 fl (6.2-12.0); Monocyte# 0.82 X10^3/uL; Monocyte% 9.6 % (0-10); NRBC Flagged by Analyzer 0.5 % (0-5); Neutrophil # 6.67 X10^3/uL (2.7-7.7); Neutrophil % 78.4 % (47-70); Platelet Count 217 K/mm3 (150-450); RBC Distribution Width CV 15.9 % (11.6-14.6); RBC Distribution Width SD 50.6 fl (35.1-43.9); Red Blood Count 3.06 M/mm3 (4.6-6.2); White Blood Count 8.5 K/mm3 (4.4-11.0)
[2023-01-26 07:52] LABS: Anion Gap 6 (5-15); BUN 28 mg/dL (7-18); BUN/Creat Ratio 18.8 RATIO (10-20); Calcium,Total 8.5 mg/dL (8.5-10.1); Chloride 114 mmol/L (98-107); Creatinine, Serum 1.49 mg/dL (0.70-1.30); EST Glomerular Filtration Rate 49 mL/min (>60); Est Glom Filt Rate - Afr Amer 59 mL/min (>60); Estimated Creatinine Clearance 48.41 ml/min; Glucose 235 mg/dL (74-106); Magnesium 1.8 mg/dL (1.6-2.6); Phosphorus 2.4 mg/dL (2.5-4.9); Potassium 3.8 mmol/L (3.5-5.1); Sodium Level 143 mmol/L (136-145)
--- NOTE | 2023-01-26 07:59 | TREXTCAR_ITS ---
Diet Diet Order/Speech Therapy: 01/25/23 09:42 Diet: Sodium Restricted (MOD) Food consistency:: Soft & Bite Sized Liquid Consistency:: Regular/Thin Is pt able to select menu?: No Diet Comments: Sodium res., dir. sup. meds crushed in , alt. bites/sips1:1, sips 1@time Routine Orders/Code Status Suppository Type: Dulcolax 10mg Suppository Frequency: Daily PRN Code Status: Full Code Therapies Weight Bearing: Weight bearing as tolerated Extremity Affected:: Bilateral Lower Physical Therapy: Eval and Treat Occupational Therapy: Eval and Treat Speech Therapy: Eval and Treat Problem/Diagnosis (1) Second degree AV block, Mobitz type II: Status: Acute Code(s): I44.1 - Atrioventricular block, second degree (2) HTN (hypertension): Status: Chronic Code(s): I10 - Essential (primary) hypertension (3) History of thoracic aortic aneurysm repair: Status: Acute Code(s): Z98.890 - Other specified postprocedural states; Z86.79 - Personal history of other diseases of the circulatory system (4) History of pulmonary embolism: Status: Acute Code(s): Z86.711 - Personal history of pulmonary embolism (5) Valvular heart disease: Status: Acute Code(s): I38 - Endocarditis, valve unspecified Comment: s/p aortic valve repair 2006. (6) Anemia: Status: Acute Code(s): D64.9 - Anemia, unspecified Plan This is a 77-year-old gentleman being admitted from [facility] for multiple episodes of syncope and upper GI bleed 1. Acute blood loss anemia and hypotension due to upper GI bleed: Patient is being admitted in ICU. His baseline hemoglobin is 13.1 which dropped to 10.7. BP was low 108/70 with baseline 143/64. Patient was resuscitated with IV fluid last blood pressure 133/55. 2 units PRBC typed and crossmatched. Keep NPO. Continue IV fluid Ringer lactate. Patient started on IV pantoprazole drip after bolus and octreotide drip. GI consulted. H&H monitoring. Patient has history of gastric ulcer in the past when he had EGD in early . Had last colonoscopy less than a year was normal as per the . His medical care is under [facility]. 01/22: Hemoglobin dropped to 8.9. Patient had 2 units of PRBC transfusion and repeat hemoglobin 10.2. Octreotide discontinued as mentioned below. 01/23: Hemoglobin 8.7. Leukocytosis improving. Most likely reactive. Protonix drip changed to 40 mg IV every 12 hourly 01/24: Hemoglobin 9.0. Leukocytosis improving. Platelet count normal. 01/25: Hemoglobin 8.2. Continue PPI. 2 Syncopal episode most likely due to hypotension/GI bleed: As per the nursing staff patient had multiple shorts, brief syncopal episodes with intermittent confusion in between. Patient had echo in June 2022 reported EF 65% moderate concentric LVH. Mild MR. Orthostatic BP when patient is stable 3. Transient A-fib and Mobitz type II, second-degree AV block: Patient is sta rted having irregular heartbeat initially A-fib postmidnight and then about 5 AM Mobitz type II AV block. Initial EKG was normal sinus rhythm admission H&P. Second EKG at 9:26 PM shows sinus rhythm with second-degree Mobitz type II block but there was 2 dropped heartbeat in EKG. welder plastic shows heart rate slowed down to 48 to 60/min. EKG in the morning about 6 AM today shows sinus rhythm with second-degree Mobitz type II block, RBBB, LAFB bifascicular block. Patient has history of bifascicular block. I talked to the patient's and informed her about the update. Patient has history of ascending aortic aneurysm and had that repaired along with aortic valve in [facility]. His tractor drill operator is Dr. Huston in [facility]. I think this is most probably due to start of the octreotide drip as patient was in sinus normal rhythm at time of admission. Octreotide discontinued. Applications Packager consulted. 2D echo ordered. 01/23: Echo states EF 55 to 60%, normal LV systolic function. Trivial MR. Mild diffuse aortic valve calcification. Normal left atrium. Plan: Applications Packager Dr. Ling will talk to Dr. Chandra regarding assessment for pacemaker 01/24: Patient has hypernatremia and hyperchloremia. IV fluid D5W started. Patient is still has AV block, P waves but rhythm is irregular. Twelve-lead EKG ordered. Discussed with the tractor drill operator. Dr. Ling will talk to Dr. Chandra. 01/25: For now plan is to monitor. No plan for pacemaker as per the tractor drill operator. welder plastic shows irregular heartbeat , Mobitz type II. Heart rate in 50s. BP normal. Patient has hypernatremia and hyperchloremia. IV fluid D5W +40 mEq KCl at 100 mL/h. Net positive fluid balance 1160 mill. Discussed with the nursing. 3. Essential hypertension and dyslipidemia-hold antihypertensive medications. Statin when oral is allowed. Blood pressure has recovered to 114/63 but patient still has weak radial pulse. Carotid pulses good. Hold antihypertensive med ications. 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 01/23: Glucose between 150?200. Accu-Chek every 6 hourly with coverage of sliding scale. Patient is NPO. #5 DVT on warfarin with supratherapeutic INR: Patient on warfarin. INR 4.2. Vitamin K 5 mg IV given in ED. 01/23: Repeat INR is 1.4. #6 BPH-patient is on Flomax #7 acute debility, disequilibrium: PT and OT ordered. #8 possible depression versus early dementia: Patient is on antidepressant and Aricept. Will resume once oral is allowed. 01/24: Aricept is likely to cause AV block/conduction disorder therefore will continue to hold. 9. Lactic acidosis mostly due to hypotension and hypoperfusion: Lactic acid has decreased. I do not think patient has suspected or confirmed focus of infection. Therefore sepsis or septic shock is ruled out. VTE prophylaxis: Pharmacological prophylaxis contraindicated in view of GI bleed, acute blood loss anemia and supratherapeutic INR. Bilateral SCDs. Living will/advanced directive/end of life care: Patient does have living will or advanced directive. His is power of claim attorney for health. After discussion of benefits/risks procedures involved with full code, DNR CC arrest and DNR CC, the patient and his opted for full code. Patient does want artificial life support including intubation, tube feed, ventilator and/chest compression, central venous catheter, vasopressor and DC shock if needed Clinical Impression(s) from Imaging Studies Brain CT 01/21/23 09:00 IMPRESSION: Chronic involutional changes of the brain. Partial opacification of the right maxillary and right frontal sinus Electronically Signed: Ravindra Sierra MD at 10:43 EDT , Chest X-Ray 01/21/23 09:30 IMPRESSION: No acute abnormality is seen. Echocardiogram 01/22/23 08:24 Interpretation Summary The estimated ejection fraction is 55-60 %. Normal LV systolic function Allergies/Procedures Done in Hospital Allergies propofol Adverse Reaction (Verified 01/21/23 08:23) Other GETS AGGRESSIVE Type of Care/Length of Stay Estimated LOS: Convalescent Care Less Than 30 days Type of Care Needed: Skilled Rehab Potential: Good Prognosis: Good Additional Orders/Day of Discharge Day of Discharge: 01/26/23 Dietary and Speech Recommendations Dietitian Recommendations/Changes: Diet as tolerated to Transitional. May need to consider Renal diet - Low Protein diet based on renal labs as advanced from NPO. RD will continue to monitor. Reassess possible malnutrition as able. Discharge Plan Admission Admit Date/Time: 01/21/23 10:32 Primary Reason for Your Visit: Syncope, Mobitz Type 2 AV block, GI Bleed Attending Provider: Ryan Tinoco Primary Care Provider: Luis Caldera Consulting Providers: Lizzeth Riggs Discharge Orders/Prescriptions Prescriptions: New sucralfate 1 gram Tablet 1 g PO 0700,1100,1600 30 Days Qty: 90 0RF sennosides-docusate sodium [Stool Softener-Stimulant Laxat] 8.6-50 mg Tablet 2 tab PO BID PRN (Reason: Constipation) Qty: 0 0RF pantoprazole 40 mg Tablet,Delayed Release (Dr/Ec) 40 mg PO BID 30 Days Qty: 60 2RF Rx Instructions: 40 mg twice daily for 2 months and then once daily ferrous sulfate 325 mg (65 mg iron) tablet,delayed release (DR/EC) 325 mg PO DAILY Qty: 30 2RF ascorbic acid (vitamin C) 500 mg tablet 500 mg PO BID Qty: 60 2RF Continued atorvastatin 40 MG tablet 40 mg PO QHS tamsulosin 0.4 mg capsule 0.4 mg PO QHS Patient Comments: TAKE 1 CAPSULE BY MOUTH EVERYDAY AT BEDTIME amlodipine 2.5 mg Tablet 2.5 mg PO DAILY 30 Days Qty: 30 0RF acetaminophen 325 mg Tablet 650 mg PO Q4H PRN PRN (Reason: PAIN AND FEVER) Qty: 0 0RF Patient Comments: PRN PER RESIDENTIAL MAR melatonin 3 mg Tablet 3 mg PO QHS PRN PRN (Reason: Insomnia) Qty: 1 0RF Patient Comments: PRN PER RESIDENTIAL MAR. donepezil 10 mg tablet 10 mg PO QHS duloxetine [Cymbalta] 60 mg capsule,delayed release(DR/EC) 60 mg PO DAILY cholecalciferol (vitamin D3) 1,250 mcg (50,000 unit) tablet 1,250 mcg PO MO insulin lispro [Humalog KwikPen Insulin] 100 unit/mL insulin pen See Protocol subcut ACHS Protocol: 6. Sliding Scale Insulin Custom Condition: mg/dl range Dose/Route: Number of Units Condition: 200-250 Dose/Route: 5 Condition: 251-300 Dose/Route: 8 Condition: 301-350 Dose/Route: 12 Condition: >351 Instruction: NOTIFY MD Protocol Text: Custom Sliding Scale Changed insulin glargine [Lantus Solostar U-100 Insulin] 100 UNITS/ML insulin pen 15 unit subcut DAILY Qty: 15 0RF Held losartan 50 MG tablet 50 mg PO DAILY Hold Instructions: Hold for 1 week until kidney function returns to normal. warfarin [Jantoven] 5 MG tablet 7.5 mg PO SUTUWETHFRSA Hold Instructions: Hold for 5 more days. Patient Comments: blood thinner warfarin 5 mg tablet 10 mg PO MO Hold Instructions: Hold for 5 more days Patient Comments: 10 MG SATURDAY, 7.5 MG ALL OTHER DAYS. PATIENT HAS INR DRAWN BI-WEEKLY. metformin 1,000 mg tablet 1,000 mg PO BID Hold Instructions: Hold for 1 week. Discontinued metoprolol succinate 200 MG tablet 200 mg PO DAILY Patient Comments: HYPERTENSION donepezil [Aricept] 5 mg tablet 5 mg PO QHS Qty: 1 0RF Patient Comments: PER FACILITY ORDER PT IS TO TAKE 5MG FOR 3 WEEKS THEN INCREASE TO 10 MG DAILY. PER SEP PT IS GIVEN BOTH 5 MG AND 10 MG DAILY AT BEDTIME. PER SEP 5 MG LAST DOSE IS ON 01/28/23. Rx Instructions: 5 mg nightly x3 weeks, then increase to 10 mg nightly thereafter Referrals / Follow Up: Luis Caldera MD [Primary Care Provider] - Júnior Chandra MD [Med Staff - Active Staff] - Within 2 Weeks Liu Hackett DO [Med Staff - Active Staff] - Within 1 Month Disposition Disposition (needs filled in before D/C Order can be placed): [facility] (6) Anemia Qualifiers: Anemia type: iron deficiency Iron deficiency anemia type: other iron deficiency Qualified Code(s): D50.8 - Other iron deficiency anemias
[2023-01-26 10:00] VITALS: BP 124/53; PULSE 53; RESP 16; TEMP 36.8; O2SAT 95
[2023-01-26] MEDS: Potassium Chloride Oral Tablet 20 MEQ 40 MEQ PO (10:39)
[2023-01-26] MEDS: Pantoprazole Sodium 40 MG Tablet PO (10:40)
--- NOTE | 2023-01-26 11:57 | PCM.DC.SUM ---
Providers Date of Admission: 01/21/23 Date of Discharge: 01/26/23 Primary Care Physician: Dr. Luis Caldera MD Consultations 01/21/23 11:52 Consult: Gastroenterology Routine Consulting Provider: [facility] Reason for Consult: Upper GI BLeed EMERGENT Consult: No Notified: Yes Date Notified: 01/21/23 Time Notified: 10:00 Method of Notification: ED Physician Initiated 01/22/23 08:16 Consult: Cardiology Routine Consulting Provider: Lizzeth Riggs Reason for Consult: Mobitz type 2 AV Block EMERGENT Consult: No Notified: Yes Date Notified: 01/22/23 Time Notified: 08:16 Method of Notification: Verbal Reason For Visit: GI BLEED, SYNCOPE Diagnosis Discharge Diagnosis (1) Second degree AV block, Mobitz type II: Status: Acute Code(s): I44.1 - Atrioventricular block, second degree (2) HTN (hypertension): Status: Chronic Code(s): I10 - Essential (primary) hypertension (3) History of thoracic aortic aneurysm repair: Status: Acute Code(s): Z98.890 - Other specified postprocedural states; Z86.79 - Personal history of other diseases of the circulatory system (4) History of pulmonary embolism: Status: Acute Code(s): Z86.711 - Personal history of pulmonary embolism (5) Valvular heart disease: Status: Acute Code(s): I38 - Endocarditis, valve unspecified (6) Anemia: Status: Acute Code(s): D64.9 - Anemia, unspecified Qualifiers: Anemia type: iron deficiency Iron deficiency anemia type: other iron deficiency Qualified Code(s): D50.8 - Other iron deficiency anemias Plan This is a 77-year-old gentleman being admitted from [facility] for multiple episodes of syncope and upper GI bleed 1. Acute blood loss anemia and hypotension due to upper GI bleed: Patient is being admitted in ICU. His baseline hemoglobin is 13.1 which dropped to 10.7. BP was low 108/70 with baseline 143/64. Patient was resuscitated with IV fluid last blood pressure 133/55. 2 units PRBC typed and crossmatched. Keep NPO. Continue IV fluid Ringer lactate. Patient started on IV pantoprazole drip after bolus and octreotide drip. GI consulted. H&H monitoring. Patient has history of gastric ulcer in the past when he had EGD in early . Had last colonoscopy less than a year was normal as per the . His medical care is under [facility]. 01/22: Hemoglobin dropped to 8.9. Patient had 2 units of PRBC transfusion and repeat hemoglobin 10.2. Octreotide discontinued as mentioned below. 01/23: Hemoglobin 8.7. Leukocytosis improving. Most likely reactive. Protonix drip changed to 40 mg IV every 12 hourly 01/24: Hemoglobin 9.0. Leukocytosis improving. Platelet count normal. 01/25: Hemoglobin 8.2. Continue PPI. 01/26: Hemoglobin stable 8.6. Patient discharged on pantoprazole 40 mg p.o. twice daily and sucralfate, ferrous sulfate and vitamin C. Prescriptions given. EGD showed single dysplastic lesion in the stomach treated with APC. Gastritis. Multiple oozing duodenal ulcers with adherent clot. Multiple nonbleeding duodenal ulcers with no stigmata of bleeding.Follow-up in GI clinic with Dr. Hackett in 1 month. 2 Syncopal episode most likely due to hypotension/GI bleed: As per the nursing staff patient had multiple shorts, brief syncopal episodes with intermittent confusion in between. Patient had echo in June 2022 reported EF 65% moderate concentric LVH. Mild MR. Orthostatic BP when patient is stable 01/26 no further issues of syncopal episode during hospital course. 3. Transient A-fib and Mobitz type II, second-degree AV block: Patient is started having irregular heartbeat initially A-fib postmidnight and then about 5 AM Mobitz type II AV block. Initial EKG was normal sinus rhythm admission H&P. Second EKG at 9:26 PM shows sinus rhythm with second-degree Mobitz type II block but there was 2 dropped heartbeat in EKG. stock turner shows heart rate slowed down to 48 to 60/min. EKG in the morning about 6 AM today shows sinus rhythm with second-degree Mobitz type II block, RBBB, LAFB bifascicular block. Patient has history of bifascicular block. I talked to the patient's and informed her about the update. Patient has history of ascending aortic aneurysm and had that repaired along with aortic valve in [facility]. His attraction attendant is Dr. Huston in [facility]. I think this is most probably due to start of the octreotide drip as patient was in sinus normal rhythm at time of admission. Octreotide discontinued. Header Up consulted. 2D echo ordered. 01/23: Echo states EF 55 to 60%, normal LV systolic function. Trivial MR. Mild diffuse aortic valve calcification. Normal left atrium. Plan: Header Up Dr. Ling will talk to Dr. Chandra regarding assessment for pacemaker 01/24: Patient has hypernatremia and hyperchloremia. IV fluid D5W started. Patient is still has AV block, P waves but rhythm is irregular. Twelve-lead EKG ordered. Discussed with the attraction attendant. Dr. Ling will talk to Dr. Chandra. 01/25: For now plan is to monitor. No plan for pacemaker as per the attraction attendant. stock turner shows irregular heartbeat , Mobitz type II. Heart rate in 50s. BP normal. Patient has hypernatremia and hyperchloremia. IV fluid D5W +40 mEq KCl at 100 mL/h. Net positive fluid balance 1160 mill. Discussed with the nursing. 01/26: Cardiology want to follow-up in office for further determination regarding putting a pacemaker. sodium improved to 143, chloride 114. D5W discontinued. ANTHONY on CKD stage IIIa: Patient was admitted with creatinine 1.99 and improved to 1.28. Today BUNs/creatinine 28/1.4 and baseline. I think patient baseline is around 1.4. ANTHONY mainly due to hemodynamic fluid shift 3. Essential hypertension and dyslipidemia-hold antihypertensive medications. Statin when oral is allowed. Blood pressure has recovered to 114/63 but patient still has weak radial pulse. Carotid pulses good. Hold antihypertensive medications. 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 01/23: Glucose between 150?200. Accu-Chek every 6 hourly with coverage of sliding scale. Patient is NPO. #5 DVT on warfarin with supratherapeutic INR: Patient on warfarin. INR 4.2. Vitamin K 5 mg IV given in ED. 01/23: Repeat INR is 1.4. 01/26 continue to hold warfarin for 5 days and then resume. #6 BPH-patient is on Flomax #7 acute debility, disequilibrium: PT and OT ordered. Patient was evaluated by speech therapist and recommended conservative swallowing maneuvers as mentioned in discharge instruction. #8 Advanced dementia: Patient is on antidepressant and Aricept. Will resume once oral is allowed. 01/24: Aricept is likely to cause AV block/conduction disorder therefore will continue to hold. 01/26: Aricept discontinued. Patient is discharged on memantine and 10 mg daily. 9. Lactic acidosis mostly due to hypotension and hypoperfusion: Lactic acid has decreased. I do not think patient has suspected or confirmed focus of infection. Therefore sepsis or septic shock is ruled out. VTE prophylaxis: Pharmacological prophylaxis contraindicated in view of GI bleed, acute blood loss anemia and supratherapeutic INR. Bilateral SCDs. Discharge plan discussed with the patient's on phone. Patient has advanced dementia and needs nursing care for feeding, impacting ADL dependent, bowel and bladder care. Limited prognosis. Living will/advanced directive/end of life care: Patient does have living will or advanced directive. 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 After discussion of benefits/risks procedures involved with full code, DNR CC arrest and DNR CC, the patient and his opted for full code. Patient does want artificial life support including intubation, tube feed, ventilator and/chest compression, central venous catheter, vasopressor and DC shock if needed Discharge medication reconciliation done. Discharge follow-up instructions completed. Discharge process discussed with the patient and all questions were answered to patient's satisfaction. Total time spent, exact 35 minutes on discharge meds reconciliation, examination, coordination of care with nurses and ancillary staff, review of imaging and blood test and discussion with the patient on follow-up instructions. Clinical Impression(s) from Imaging Studies Brain CT 01/21/23 09:00 IMPRESSION: Chronic involutional changes of the brain. Partial opacification of the right maxillary and right frontal sinus Electronically Signed: Ravindra Sierra MD at 10:43 EDT , Chest X-Ray 01/21/23 09:30 IMPRESSION: No acute abnormality is seen. Echocardiogram 01/22/23 08:24 Interpretation Summary The estimated ejection fraction is 55-60 %. Normal LV systolic function Medications at Discharge Home Medications losartan 50 mg tablet 50 mg PO DAILY blood pressure 03/24/18 atorvastatin 40 mg tablet 40 mg PO QHS cholesterol 05/22/18 warfarin 5 mg tablet (Jantoven) 7.5 mg PO SUTUWETHFRSA anticoagulant 05/22/18 tamsulosin 0.4 mg capsule 0.4 mg PO QHS PROSTATE 03/02/22 warfarin 5 mg tablet 10 mg PO MO BLOOD THINNER 03/02/22 amlodipine 2.5 mg tablet 2.5 mg PO DAILY BP 30 days #30 tabs 07/11/22 acetaminophen 325 mg tablet 650 mg (2 x 325 mg) PO Q4H PRN PRN PAIN AND FEVER #0 tabs 01/08/23 melatonin 3 mg tablet 3 mg PO QHS PRN PRN Insomnia #1 TAB 01/08/23 cholecalciferol (vitamin D3) 1,250 mcg (50,000 unit) tablet 1,250 mcg PO MO SUPPLEMENT 01/21/23 duloxetine 60 mg capsule,delayed release (Cymbalta) 60 mg PO DAILY DEPRESSION 01/21/23 insulin lispro 100 unit/mL subcutaneous pen (Humalog KwikPen (U-100) Insulin) See Protocol subcut ACHS DM 01/21/23 metformin 1,000 mg tablet 1,000 mg PO BID DM 01/21/23 ascorbic acid (vitamin C) 500 mg tablet 500 mg PO BID #60 tabs 01/26/23 ferrous sulfate 325 mg (65 mg iron) tablet,delayed release 325 mg PO DAILY #30 tabs 01/26/23 insulin glargine 100 unit/mL (3 mL) subcutaneous pen (Lantus Solostar U-100 Insulin) 15 unit (0.15 mL) subcut DAILY diabetes #15 mL 01/26/23 memantine 10 mg tablet 10 mg PO QPM 30 days #30 tabs 01/26/23 pantoprazole 40 mg tablet,delayed release 40 mg PO BID 30 days #60 tabs 01/26/23 sennosides 8.6 mg-docusate sodium 50 mg tablet (Stool Softener-Stimulant Laxative) 2 tab PO BID PRN Constipation #0 tabs 01/26/23 sucralfate 1 gram tablet 1 g PO 0700,1100,1600 30 days #90 tabs 01/26/23 Physical Exam Narrative Seen and examined. Discussed with the nursing staff. Patient is still having Mobitz type II AV block, but is less frequent. Heart rate in 50s.. Discussed with the attraction attendant. No chest pain or tightness. Physical exam General: Awake, mild lethargy. Cooperative. BMI 28.9 KG per square meter. HEENT: Atraumatic, PERRLA, EOMI, Normocephalic Oral: Oral mucosa moist. No Gingival or Mucosal Lesions/ Ulcerations Neck: Supple, No JVD, Negative Carotid Bruits Lungs: Air entry diminished in bilateral lung bases. No crepitation/rhonchi Cardiovascular: Irregular sinus rhythm, P wave present. Bradycardia. Normal S1, Normal S2, pansystolic murmur over cardiac apex. Abdomen: Bowel Sounds Present, Soft, Non Tender, Non-Distended : No renal angle tenderness. No suprapubic tenderness. Extremities: No edema, Capillary Refill Less than 3 Seconds Skin: No rashes, No breakdown Musculoskeletal: Muscle strength 4+/5 at knee and hip joints. ROM restricted. No Tenderness to Palpation of Joints or Extremities Neurological: Cranial nerves II-XII grossly intact, DTR 2+/4 and Symmetrical, Neuro grossly intact Psych/Mental Status: Flat affect. Amnesia/cognitive deficit. Dementia. Weight / BMI Weight Weight: 213 lb 2.992 oz Body Mass Index (BMI) 28.2 ABG / Lab / Microbiology Data 01/26/23 06:37 01/26/23 06:37 Laboratory: Laboratory Results - last 24 hr 01/22/23 11:32: IgG Not Reportable, DEBI M-Jose 01/25/23 12:17: POC Glucose 175 H 01/25/23 17:05: POC Glucose 192 H 01/26/23 00:54: POC Glucose 199 H 01/26/23 06:10: POC Glucose 226 H 01/26/23 06:37: WBC 8.5, RBC 3.06 L, Hgb 8.6 L, Hct 27.1 L, MCV 88.6, MCH 28.1, MCHC 31.7 L, RDW Std Deviation 50.6 H, RDW Coeff of Nathaniel 15.9 H, Plt Count 217, MPV 9.9, Immature Gran % (Auto) 2.200 H, Neut % (Auto) 78.4 H, Lymph % (Auto) 8.1 L, [place] % (Auto) 9.6, Eos % (Auto) 1.6, Baso % (Auto) 0.1, Absolute Neuts (auto) 6.7, Absolute Lymphs (auto) 0.69 L, Nucleated RBC % 0.5, Sodium 143, Potassium 3.8, Chloride 114 H, Carbon Dioxide 23.0, Anion Gap 6, BUN 28 H, Creatinine 1.49 H, Estim Creat Clear Calc 48.41, Est GFR (MDRD) Af Amer 59 L, Est GFR (MDRD) Non-Af 49 L, BUN/Creatinine Ratio 18.8, Glucose 235 H, Calcium 8.5, Phosphorus 2.4 L, Magnesium 1.8 Microbiology: Microbiology 01/21/23 09:15 Stool Stool Occult Blood (KLAUS) - Final Occult Blood Positive Meaningful Use Info Meaningful Use Diagnoses (Choose all that apply): None applicable Discharge Plan Admission Admit Date/Time: 01/21/23 10:32 Primary Reason for Your Visit: Syncope, Mobitz Type 2 AV block, GI Bleed Attending Provider: Ryan Tinoco Primary Care Provider: Luis Caldera Consulting Providers: Lizzeth Riggs Discharge Orders/Prescriptions Prescriptions: New sucralfate 1 gram Tablet 1 g PO 0700,1100,1600 30 Days Qty: 90 0RF sennosides-docusate sodium [Stool Softener-Stimulant Laxat] 8.6-50 mg Tablet 2 tab PO BID PRN (Reason: Constipation) Qty: 0 0RF pantoprazole 40 mg Tablet,Delayed Release (Dr/Ec) 40 mg PO BID 30 Days Qty: 60 2RF Rx Instructions: 40 mg twice daily for 2 months and then once daily ferrous sulfate 325 mg (65 mg iron) tablet,delayed release (DR/EC) 325 mg PO DAILY Qty: 30 2RF ascorbic acid (vitamin C) 500 mg tablet 500 mg PO BID Qty: 60 2RF memantine 10 mg tablet 10 mg PO QPM 30 Days Qty: 30 0RF Continued atorvastatin 40 MG tablet 40 mg PO QHS tamsulosin 0.4 mg capsule 0.4 mg PO QHS Patient Comments: TAKE 1 CAPSULE BY MOUTH EVERYDAY AT BEDTIME amlodipine 2.5 mg Tablet 2.5 mg PO DAILY 30 Days Qty: 30 0RF acetaminophen 325 mg Tablet 650 mg PO Q4H PRN PRN (Reason: PAIN AND FEVER) Qty: 0 0RF Patient Comments: PRN PER RESIDENTIAL MAR melatonin 3 mg Tablet 3 mg PO QHS PRN PRN (Reason: Insomnia) Qty: 1 0RF Patient Comments: PRN PER RESIDENTIAL MAR. duloxetine [Cymbalta] 60 mg capsule,delayed release(DR/EC) 60 mg PO DAILY cholecalciferol (vitamin D3) 1,250 mcg (50,000 unit) tablet 1,250 mcg PO MO insulin lispro [Humalog KwikPen Insulin] 100 unit/mL insulin pen See Protocol subcut ACHS Protocol: 6. Sliding Scale Insulin Custom Condition: mg/dl range Dose/Route: Number of Units Condition: 200-250 Dose/Route: 5 Condition: 251-300 Dose/Route: 8 Condition: 301-350 Dose/Route: 12 Condition: >351 Instruction: NOTIFY Protocol Text: Custom Sliding Scale Changed insulin glargine [Lantus Solostar U-100 Insulin] 100 UNITS/ML insulin pen 15 unit subcut DAILY Qty: 15 0RF Held losartan 50 MG tablet 50 mg PO DAILY Hold Instructions: Hold for 1 week until kidney function returns to normal. warfarin [Jantoven] 5 MG tablet 7.5 mg PO SUTUWETHFRSA Hold Instructions: Hold for 2 more days Patient Comments: blood thinner warfarin 5 mg tablet 10 mg PO MO Hold Instructions: Hold for 2 more days Patient Comments: 10 MG SATURDAY, 7.5 MG ALL OTHER DAYS. PATIENT HAS INR DRAWN BI-WEEKLY. metformin 1,000 mg tablet 1,000 mg PO BID Hold Instructions: Hold for 1 week. Discontinued metoprolol succinate 200 MG tablet 200 mg PO DAILY Patient Comments: HYPERTENSION donepezil [Aricept] 5 mg tablet 5 mg PO QHS Qty: 1 0RF Patient Comments: PER FACILITY ORDER PT IS TO TAKE 5MG FOR 3 WEEKS THEN INCREASE TO 10 MG DAILY. PER SEP PT IS GIVEN BOTH 5 MG AND 10 MG DAILY AT BEDTIME. PER SEP 5 MG LAST DOSE IS ON 01/28/23. Rx Instructions: 5 mg nightly x3 weeks, then increase to 10 mg nightly thereafter donepezil 10 mg tablet 10 mg PO QHS Referrals / Follow Up: Luis Caldera MD [Primary Care Provider] - Júnior Chandra MD [Med Staff - Active Staff] - Within 2 Weeks Liu Hackett DO [Med Staff - Active Staff] - Within 1 Month Disposition Disposition (needs filled in before D/C Order can be placed): Senior Living Facility Charges/Coding Visit Charges Inpatient E&M: 12495 Disch Hosp >30min
[2023-01-26] MEDS: Insulin Glargine-YFGN 100 UNIT/ML Pen 12 UNIT SC (12:10)
[2023-01-26 12:39] LABS: Bedside Glucose 230 mg/dL (74-106)
[2023-01-26 14:13] VITALS: BP 134/46; PULSE 60; RESP 18; TEMP 37; O2SAT 97
--- NOTE | 2023-01-26 15:49 | EX.PCM.PN.GI ---
Subjective Subjective Patient is doing well today. He is tolerating a diet. He will follow-up with cardiology as an outpatient. He is not having any signs or symptoms of GI bleeding at this time. Objective Data Objective Data Vital Signs: Vital Signs Temp Pulse Resp BP Pulse Ox O2 Del Method O2 Flow Rate 98.6 F 60 18 134/46 H 97 Room Air 93 01/26/23 14:13 01/26/23 14:13 01/26/23 14:13 01/26/23 14:13 01/26/23 14:13 01/26/23 15:00 01/24/23 16:00 Oxygen Flow Rate (L/min) 93 Oxygen Delivery Method Room Air Weight: 213 lb 2.992 oz Body Mass Index (BMI) 28.2 Intake & Output: Intake and Output for Last 24 Hours 01/24/23 01/25/23 01/26/23 23:59 23:59 23:59 Intake Total 2205.42 / 2205.42 2794.17 / 2794.17 2688.33 / 2688.33 Output Total 1075 / 1175 625 / 625 650 / 650 Balance 1130.42 / 1030.42 2169.17 / 2169.17 2038.33 / 2038.33 Lab / Micro Data 01/26/23 06:37 01/26/23 06:37 Labs: Laboratory Results - last 24 hr 01/22/23 11:32: IgG Not Reportable, DEBI M-Jose 01/25/23 17:05: POC Glucose 192 H 01/26/23 00:54: POC Glucose 199 H 01/26/23 06:10: POC Glucose 226 H 01/26/23 06:37: WBC 8.5, RBC 3.06 L, Hgb 8.6 L, Hct 27.1 L, MCV 88.6, MCH 28.1, MCHC 31.7 L, RDW Std Deviation 50.6 H, RDW Coeff of Nathaniel 15.9 H, Plt Count 217, MPV 9.9, Immature Gran % (Auto) 2.200 H, Neut % (Auto) 78.4 H, Lymph % (Auto) 8.1 L, [place] % (Auto) 9.6, Eos % (Auto) 1.6, Baso % (Auto) 0.1, Absolute Neuts (auto) 6.7, Absolute Lymphs (auto) 0.69 L, Nucleated RBC % 0.5, Sodium 143, Potassium 3.8, Chloride 114 H, Carbon Dioxide 23.0, Anion Gap 6, BUN 28 H, Creatinine 1.49 H, Estim Creat Clear Calc 48.41, Est GFR (MDRD) Af Amer 59 L, Est GFR (MDRD) Non-Af 49 L, BUN/Creatinine Ratio 18.8, Glucose 235 H, Calcium 8.5, Phosphorus 2.4 L, Magnesium 1.8 01/26/23 12:09: POC Glucose 230 H Micro: Microbiology 01/26/23 12:56 Nasal Secretion SARS-CoV-2 Antigen (Rapid) - Final 01/21/23 09:15 Stool Stool Occult Blood (KLAUS) - Final Occult Blood Positive Rhythm Strip Rhythm Strip: Sinus Rhythm Rate: 90 Ectopy: PAC(s) Physical Exam Narrative Seen and examined. Discussed with the nursing staff. Patient is still having Mobitz type II AV block, but is less frequent. Heart rate in 50s.. Discussed with the special programs director. No chest pain or tightness. Physical exam General: Awake, mild lethargy. Cooperative. BMI 28.9 KG per square meter. HEENT: Atraumatic, PERRLA, EOMI, Normocephalic Oral: Oral mucosa moist. No Gingival or Mucosal Lesions/ Ulcerations Neck: Supple, No JVD, Negative Carotid Bruits Lungs: Air entry diminished in bilateral lung bases. No crepitation/rhonchi Cardiovascular: Irregular sinus rhythm, P wave present. Bradycardia. Normal S1, Normal S2, pansystolic murmur over cardiac apex. Abdomen: Bowel Sounds Present, Soft, Non Tender, Non-Distended : No renal angle tenderness. No suprapubic tenderness. Extremities: No edema, Capillary Refill Less than 3 Seconds Skin: No rashes, No breakdown Musculoskeletal: Muscle strength 4+/5 at knee and hip joints. ROM restricted. No Tenderness to Palpation of Joints or Extremities Neurological: Cranial nerves II-XII grossly intact, DTR 2+/4 and Symmetrical, Neuro grossly intact Psych/Mental Status: Flat affect. Amnesia/cognitive deficit. Dementia. Assessment & Plan Assessment/Plan (1) Anemia: QUALIFIERS: Anemia type: iron deficiency Iron deficiency anemia type: other iron deficiency Qualified Code(s): D50.8 - Other iron deficiency anemias (2) Warfarin-induced coagulopathy: (3) ABLA (acute blood loss anemia): PLAN: Plan 77-year-old with past medical history of PE, DVT presents with worsening shortness of breath and fatigue and discovered to have a significant anemia. Stools were checked for blood and neuro positive. He underwent an upper endoscopy after his INR was corrected and was discovered to have severe ulcerations of his duodenum. Biopsies were taken in the stomach for H. pylori and biopsies also were taken. Ulcerations were treated endoscopically. His hemoglobin seems to be stable. Recommendation: PPI can be switched to Protonix 40 mg p.o. every 12 hours. He will need sulcralfate 1 g p.o. 3 times a day for approximately 8 to 12 weeks. He can take the Protonix for 12 weeks. He will need repeat upper endoscopy in approximately 8 to 12 weeks to ensure healing. Charges/Coding Visit Charges Inpatient E&M: 57400 Subs Hosp L3
== END 2023-01-26 16:04 | disposition skilled nursing facility (03) | DRG 378 ==
LOC: ED 10:48 → ICU 10:57 → PCU 01-24 14:39
PROVIDERS: Family Medicine; Internal Medicine Gastroenterology; Admitting Provider Internal Medicine; Emergency Provider Emergency Medicine; PCP Family Medicine; Visit Provider Internal Medicine
PROC: 0DJ08ZZ Inspection of Upper Intestinal Tract, Via Natural or Artificial Opening Endoscopic (ICD-10-PCS; CPT 43235; principal; 2023-01-23 10:40)
DX: K31.811 Angiodysplasia of stomach and duodenum with bleeding (principal); E87.0 Hyperosmolality and hypernatremia; E87.20 Acidosis, unspecified; D62 Acute posthemorrhagic anemia; N17.9 Acute kidney failure, unspecified; I45.2 Bifascicular block; I44.1 Atrioventricular block, second degree; I48.91 Unspecified atrial fibrillation; E11.40 Type 2 diabetes mellitus with diabetic neuropathy, unspecified; Z79.4 Long term (current) use of insulin; F03.90 Unspecified dementia, unspecified severity, without behavioral disturbance, psychotic disturbance, mood disturbance, and anxiety; E11.22 Type 2 diabetes mellitus with diabetic chronic kidney disease; N18.31 Chronic kidney disease, stage 3a; Z89.411 Acquired absence of right great toe; E78.5 Hyperlipidemia, unspecified; I25.2 Old myocardial infarction; E87.8 Other disorders of electrolyte and fluid balance, not elsewhere classified; I12.9 Hypertensive chronic kidney disease with stage 1 through stage 4 chronic kidney disease, or unspecified chronic kidney disease; K57.10 Diverticulosis of small intestine without perforation or abscess without bleeding; I95.1 Orthostatic hypotension; F32.A Depression, unspecified; K26.4 Chronic or unspecified duodenal ulcer with hemorrhage; K29.71 Gastritis, unspecified, with bleeding; N40.0 Benign prostatic hyperplasia without lower urinary tract symptoms; R79.1 Abnormal coagulation profile; R53.81 Other malaise; Z95.2 Presence of prosthetic heart valve; Z79.01 Long term (current) use of anticoagulants; Z79.899 Other long term (current) drug therapy; Z86.711 Personal history of pulmonary embolism; Z86.718 Personal history of other venous thrombosis and embolism; Z86.16 Personal history of COVID-19
CPT/HCPCS: 36415; 70450; 71045; 80048; 80053; 81001; 82085; 82274; 82550; 82784; 82785; 82787; 82962; 83605; 83615; 83735; 84100; 84165; 84484; 85014; 85018; 85025; 85610; 86225; 86235; 86256; 86334; 86850; 86900; 86901; 86920; 87426; 88305; 92526; 92610; 93005; 93306; 94762; 97110; 97162; 97166; 97530; 97535; 99285; J7120; P9016; Q9957; A4216; C8929; J1940; J2405; J3490

== ENCOUNTER 2023-01-27 17:56 | Inpatient (IN) | payer MEDICARE, OTHER, SELFPAY ==
[2023-01-27 17:58] VITALS: BP 129/46; PULSE 77; RESP 22; TEMP 36.7; O2SAT 96; BMI 30.5
[2023-01-27 18:37] LABS: Absolute Lymphocyte Count 1.35 X10^3/uL (0.83-4.51); Basophil# 0.01 X10^3/uL; Basophil% 0.1 % (0-1); Eosinophil# 0.32 X10^3/uL; Eosinophils% 2.9 % (0-5); Hematocrit 25.6 % (40-54); Hemoglobin 8.2 g/dL (13.0-16.5); Lymphocyte # 1.35 X10^3/ul (0.83-4.51); Lymphocyte % 12.4 % (19-41); Mean Corpuscular Hgb 28.2 pg (27.0-32.0); Mean Platelet Vol. 9.9 fl (6.2-12.0); Monocyte# 0.89 X10^3/uL; Monocyte% 8.2 % (0-10); NRBC Flagged by Analyzer 0.2 % (0-5); Neutrophil # 8.04 X10^3/uL (2.7-7.7); Neutrophil % 73.8 % (47-70); Platelet Count 259 K/mm3 (150-450); RBC Distribution Width CV 15.5 % (11.6-14.6); RBC Distribution Width SD 49.3 fl (35.1-43.9); Red Blood Count 2.91 M/mm3 (4.6-6.2); White Blood Count 10.9 K/mm3 (4.4-11.0)
[2023-01-27 18:51] LABS: International Normalized Ratio 1.6; Prothrombin Time (Protime)PT. 19.4 SECONDS (11.7-14.9)
[2023-01-27 19:07] LABS: ALB/GLOB Ratio 0.5 RATIO (0.9-2.4); AST(SGOT) 68 U/L (15-37); Alanine Aminotransfer ALT/SGPT 81 U/L (16-61); Albumin, Serum 1.8 g/dL (3.2-5.0); Alkaline Phosphatase 78 U/L (45-117); Anion Gap 4 (5-15); BUN 29 mg/dL (7-18); BUN/Creat Ratio 20.4 RATIO (10-20); Calcium,Total 8.3 mg/dL (8.5-10.1); Chloride 111 mmol/L (98-107); Creatinine, Serum 1.42 mg/dL (0.70-1.30); EST Glomerular Filtration Rate 52 mL/min (>60); Est Glom Filt Rate - Afr Amer 63 mL/min (>60); Globulin 3.5 g/dL (2.2-4.2); Glucose 215 mg/dL (74-106); Lipase 233 U/L (13-75); Protein, Total 5.3 g/dL (6.4-8.2); Sodium Level 140 mmol/L (136-145)
--- NOTE | 2023-01-27 19:25 | CT_ITS ---
INDICATION: gi bleed COMPARISON: Chest CT 09/17/2013. A radiation dose optimization technique was used for this scan. FINDINGS: Contrast enhanced serial CTA axial images through the chest, abdomen, and pelvis with coronal and sagittal reformatted series. Additional dedicated coronal and sagittal MIP reformatted series provided as well. IV Contrast dosage and agent: 100 cc [id number]-370 IV. Radiation CTDIvol 20.53 Radiation DLP 2209.81 MEDIASTINUM: No pulmonary artery filling defects. Mediastinum is otherwise unremarkable. AORTA/GREAT VESSELS: No acute thoracoabdominal aortic abnormality. Major abdominal ostia are patent. Likely mixing artifact of the bilateral femoral veins. LUNG PARENCHYMA: Patchy posterior left lower lobe airspace disease with associated peribronchial thickening, consistent with airspace disease, to include pneumonia. Stable granuloma of the anterior right middle lobe from 2014. PLEURA: Thin bilateral pleural calcifications. No pleural effusion. No pneumothorax. CHEST/ABDOMINAL WALL: Fat-containing right inguinal hernia without inflammatory fat stranding. PANCREAS: No peripancreatic fat stranding. BOWEL/MESENTERY: No dilated bowel loops. No significant free fluid. No free air. Significant streak artifact secondary to metallic focus at the margin of the cecum. Colonic diverticulosis without evidence of diverticulitis. GALLBLADDER: Large lamellated cholelith within the gallbladder without pericholecystic fat stranding. APPENDIX: Normal caliber appendix. LIVER/STOMACH: No obvious abnormality. SPLEEN: Stable splenomegaly from 2014 measuring up to 15 cm. URINARY COLLECTING SYSTEM/ KIDNEYS: No evidence of urinary collecting system obstruction. Few bilateral small simple fluid attenuating renal lesions, likely renal cysts. BONES: Median sternotomy wires. CT/CTA Chst, Abd, Pel W and/or WO IMPRESSION: Patchy posterior left lower lobe airspace disease, to include pneumonia. Recommend follow-up to resolution. Colonic diverticulosis without evidence of diverticulitis. No acute abnormality of the abdomen, to include otherwise unremarkable CT appearance of the bowel. Electronically Signed: Alexx Torres MD at 22:03 EDT ,
--- NOTE | 2023-01-27 20:11 | PCM.HP.STD ---
HPI - General General Date of Admission: 01/27/23 Date of Service: 01/27/23 Chief Complaint: Recurrent GI bleed at SNF. HPI Narrative The patient is a 77 y/o M w/ PMHx: CKD stage IIIa, AAA s/p repair, Hx COVID-19, Hx GI bleed, Valvular heart disease s/p AVR, HTN, HLD, VTE w/ Hx DVT/PE, Diabetes mellitus type II, Obesity, discharged on 01/26/23 following lengthy admission with 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, syncopal events secondary to hypotension with GI bleed and HB, ANTHONY on CKD stage IIIa who now re-presents to the [facility] ED on 01/27/23 with onset of several episodes of bloody stools with + occult stool check at facility prompting SNF to bring him back for re-evaluation. On day of presentation patient actually had somewhat of an appetite at his facility and did have oral intake as well as appropriate liquid intake which is more than he has been taking in since his discharge and at the the hospital. reports that earlier in the day he did look much better as opposed to currently in the ED ashen and very fatigued as well as ill-appearing. Work-up in the ED included T98, heart rate 77, BP 129/46, respiratory rate 22, 96% on room air, CBC with WBC 10.9, hemoglobin 8.2, MCV 88, platelet 259 with left shift, coags with INR 1.6, CMP with chloride 111, BUN/creatinine 29/1.42, glucose 215, hepatic profile with AST/ALT 68/81, lipase mildly elevated 233, CT chest/abdomen/pelvis with and without contrast pending upon requested evaluation of patient. In the ED patient administered 1 L normal saline as well as a Protonix bolus and initiated on a drip. ED discussed case with Gastroenterology Dr. Hackett. [facility], [facility] Medical History Amputation of right great toe Aortic aneurysm without rupture COVID-19 Diabetes Diabetic neuropathy HLD (hyperlipidemia) HTN (hypertension) Hyperkalemia Lactic acidosis Leukocytosis NSTEMI, initial episode of care Osteomyelitis Pulmonary emboli RBBB (right bundle 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) Second degree AV block, Mobitz type II Ulcer of right great toe due to diabetes mellitus Upper gastrointestinal bleed Ureterolithiasis Valvular heart disease Home Medications losartan 50 mg tablet 50 mg PO DAILY blood pressure 03/24/18 [History Last Taken 01/20/23] atorvastatin 40 mg tablet 40 mg PO QHS cholesterol 05/22/18 [History Last Taken 01/20/23] warfarin 5 mg tablet (Jultoven) 7.5 mg PO SUTUWETHFRSA anticoagulant 05/22/18 [History Last Taken 01/20/23] tamsulosin 0.4 mg capsule 0.4 mg PO QHS PROSTATE 03/02/22 [History Last Taken 01/20/23] warfarin 5 mg tablet 10 mg PO MO BLOOD THINNER 03/02/22 [History Last Taken 01/02/23] amlodipine 2.5 mg tablet 2.5 mg PO DAILY BP 30 days #30 tabs 07/11/22 [Rx Last Taken 01/20/23] acetaminophen 325 mg tablet 650 mg (2 x 325 mg) PO Q4H PRN PRN PAIN AND FEVER #0 tabs 01/08/23 [Rx Last Taken 01/19/23] melatonin 3 mg tablet 3 mg PO QHS PRN PRN Insomnia #1 TAB 01/08/23 [Rx Last Taken Unknown] cholecalciferol (vitamin D3) 1,250 mcg (50,000 unit) tablet 1,250 mcg PO MO SUPPLEMENT 01/21/23 [History Last Taken 01/14/23] duloxetine 60 mg capsule,delayed release (Cymbalta) 60 mg PO DAILY DEPRESSION 01/21/23 [History Last Taken 01/20/23] insulin lispro 100 unit/mL subcutaneous pen (Humalog KwikPen (U-100) Insulin) See Protocol subcut ACHS DM 01/21/23 [History Last Taken 01/21/23] metformin 1,000 mg tablet 1,000 mg PO BID DM 01/21/23 [History Last Taken 01/20/23] ascorbic acid (vitamin C) 500 mg tablet 500 mg PO BID #60 tabs 01/26/23 [Rx Last Taken Unknown] ferrous sulfate 325 mg (65 mg iron) tablet,delayed release 325 mg PO DAILY #30 tabs 01/26/23 [Rx Last Taken Unknown] insulin glargine 100 unit/mL (3 mL) subcutaneous pen (Lantus Solostar U-100 Insulin) 15 unit (0.15 mL) subcut DAILY diabetes #15 mL 01/26/23 [Rx Last Taken 01/20/23] memantine 10 mg tablet 10 mg PO QPM 30 days #30 tabs 01/26/23 [Rx Last Taken Unknown] pantoprazole 40 mg tablet,delayed release 40 mg PO BID 30 days #60 tabs 01/26/23 [Rx Last Taken Unknown] sennosides 8.6 mg-docusate sodium 50 mg tablet (Stool Softener-Stimulant Laxative) 2 tab PO BID PRN Constipation #0 tabs 01/26/23 [Rx Last Taken Unknown] sucralfate 1 gram tablet 1 g PO 0700,1100,1600 30 days #90 tabs 01/26/23 [Rx Last Taken Unknown] Allergy/AdvReac Type Severity Reaction Status Date / Time propofol AdvReac Other Verified 01/27/23 18:06 Family History Mother Heart disease Diabetes Hypertension Father Heart disease Surgical History H/O aortic valve repair History of foot surgery History of thoracic aortic aneurysm repair Hx of abdominal surgery Social History housing: assisted current occupational status: retired Smoking Status: Never smoker alcohol intake: never substance use type: does not use ROS ROS Narrative Admission Review of Systems: CONSTITUTIONAL: No weight loss, fever, chills, + weakness or fatigue. HEENT: Eyes: No visual loss, blurred vision, double vision or yellow sclerae. Ears, Nose, Throat: No hearing loss, sneezing, congestion, runny nose or sore throat. SKIN: + Falls with healing abrasions especially LUE, occasional staged ecchymoses secondary recent IV access and lab draws. CARDIOVASCULAR: No chest pain, chest pressure or chest discomfort, palpitations, edema, orthopnea, syncopal events. RESPIRATORY: No shortness of breath, cough or sputum, wheezing, hemoptysis. GASTROINTESTINAL: + Black loose stools. No anorexia, nausea, vomiting, abdominal pain, BRBPR. GENITOURINARY: No dysuria, frequency, urgency or retention. NEUROLOGICAL: + Significant diffuse weakness. No headache, dizziness, syncope, paralysis, ataxia, numbness or tingling in the extremities, focal weakness, change in bowel or bladder control, seizure. MUSCULOSKELETAL: + muscle, back pain, joint pain or stiffness. HEMATOLOGIC: + Anemia, bleeding or bruising. LYMPHATICS: No enlarged nodes. No history of splenectomy. PSYCHIATRIC: No history of depression or anxiety. ENDOCRINOLOGIC: No reports of sweating, cold or heat intolerance. No polyuria or polydipsia. ALLERGIES: No history of asthma, hives, eczema or rhinitis. Vital Signs Vital Signs Vital Signs: 01/27/23 17:58 Temperature 98.0 F Temperature Source Oral Pulse Rate 77 Respiratory Rate 22 H Blood Pressure 129/46 H Blood Pressure Mean 73 Pulse Ox 96 Oxygen Delivery Method Room Air Weight Weight: 231 lb 7.766 oz Body Mass Index (BMI) 30.5 Physical Exam Narrative Physical Examination: General: Awake, alert, oriented to self, place and some recent events, very fatigued and ashen appearing, is present and states he seemed to be better during the day but has worsened. Skin: Normal color, normal turgor, no icterus, no cyanosis except for occasional staged ecchymoses, healing abrasions with recent fall history. HEENT: AT/NC, EOMI, PERRLA, dry MM, no carotid bruits or JVD noted. Lungs: Mildly diminished, greater bases, appropriate effort, no rales, ronchi or wheezing. Heart: Currently regular rate with regular rhythm; no gallop, rub audible. Abdomen: Soft, obese, NTTP, ND, hyperactive BS, no HSM. Extremities: No cyanosis, clubbing, or edema, see skin. Neurological: Patient awake, alert, oriented as noted, cognitive function baseline intact although markedly fatigued; pupils equally reactive to light and accommodation, cranial nerves grossly normal, moving all 4 extremities, no focal deficits, strength moderately to severely globally decreased secondary to acute presentation and recent prolonged hospitalization history. Psychiatric: Affect appears fatigued, no acute evidence of depressive or anxiety feelings. Results Lab / Micro Data 01/27/23 18:20 01/27/23 18:20 Labs: Laboratory Results - last 24 hr 01/27/23 18:20: WBC 10.9, RBC 2.91 L, Hgb 8.2 L, Hct 25.6 L, MCV 88.0, MCH 28.2, MCHC 32.0, RDW Std Deviation 49.3 H, RDW Coeff of Nathaniel 15.5 H, Plt Count 259, MPV 9.9, Immature Gran % (Auto) 2.600 H, Neut % (Auto) 73.8 H, Lymph % (Auto) 12.4 L, Nash % (Auto) 8.2, Eos % (Auto) 2.9, Baso % (Auto) 0.1, Absolute Neuts (auto) 8.0 H, Absolute Lymphs (auto) 1.35, Nucleated RBC % 0.2, PT 19.4 H, INR 1.6, Sodium 140, Potassium 4.0, Chloride 111 H, Carbon Dioxide 25.0, Anion Gap 4 L, BUN 29 H, Creatinine 1.42 H, Estim Creat Clear Calc 50.80, Est GFR (MDRD) Af Amer 63, Est GFR (MDRD) Non-Af 52 L, BUN/Creatinine Ratio 20.4 H, Glucose 215 H, Calcium 8.3 L, Total Bilirubin 0.50, AST 68 H, ALT 81 H, Alkaline Phosphatase 78, Total Protein 5.3 L, Albumin 1.8 L, Globulin 3.5, Albumin/Globulin Ratio 0.5 L, Lipase 233 H, Blood Type A POSITIVE, Antibody Screen NEGATIVE Assessment & Plan Assessment/Plan (1) Upper gastrointestinal bleeding: PLAN: Plan The patient is a 77 y/o M w/ PMHx: CKD stage IIIa, AAA s/p repair, Hx COVID-19, Hx GI bleed, Valvular heart disease s/p AVR, HTN, HLD, VTE w/ Hx DVT/PE, Diabetes mellitus type II, Obesity, discharged on 01/26/23 following lengthy admission with 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, syncopal events secondary to hypotension with GI bleed and HB, ANTHONY on CKD stage IIIa who now re-presents to the [facility] ED on 01/27/23 with onset of several episodes of bloody stools with + occult stool check at facility prompting SNF to bring him back for re-evaluation. #1. Recurrent GI bleed w/ recent ABLA secondary to upper GI bleed with associated Hypotension/Shock prior admission: Recent EGD w/ single dysplastic lesion in the stomach treated with APC, gastritis, multiple oozing duodenal ulcers with adherent clot, multiple nonbleeding duodenal ulcers with no stigmata of bleeding, Hgb at discharge 8.6, treated prior with PRBC administration, Protonix drip, Octreotide drip eventual discharged on PPI BID, sulcralafate, ferrous sulfate and vitamin C with coumadin held. Admission hemoglobin 8.2 which is very similar to recent discharge although mildly decreased from 8.6, will admit to PCU to be cautious, maintain on judicious IV fluids, will obtain serial H&H's, will again transition to IV PPI drip to be continued which was initiated in the ED already with a bolus, allow clears only with n.p.o. status at midnight and plan for continued GI evaluation which was initiated in the ED, type and screen already initiated also per ED with plan PRBC administration if vital signs or repeat hemoglobin appropriate. We will certainly follow-up on CT imaging which has been ordered by the ED physician and is pending upon requested evaluation as if this is an active bleed will notify Dr. Hackett to ascertain if there is any more acute interventions that need to take place. #2. Recent Syncopal events secondary to Hypotension w/ GI bleed as well as Transient PAF/Mobitz type II second-degree AV block: Onset during admission, felt HB secondary to octreotide which was d/c, ECHO w/ EF 55 to 60%, normal LV systolic function, trivial MR, mild diffuse aortic valve calcification w/ Caridology evaluation with decision against pacemaker currently but planned outpatient follow-up. #3. Recent ANTHONY on CKD stage IIIa, resolved: During previous admission patient creatinine initially 1.99 with clinical improvement, today upon presentation 01/27/2023 BUN/creatinine 29/1.42, baseline creatinine appears 1.4, stable, continue to trend. #4. Hypertension: Recent discharge with hold on losartan and discontinuation of metoprolol given heart block, blood pressures had been low, will continue on PRN hydralazine. #5. Hyperlipidemia: We will continue patient on statin therapy. #6. Advanced dementia unclear specific type with unclear behavior disturbance history: Given heart block as patient had been on antidepressant and Aricept Aricept was held as suspected also causative of AV block/conduction disorder therefore patient was discharged on memantine instead which will be continued. #7. Diabetes mellitus type II: Hold oral home regimen, ADA diet, accu checks w/ ISS. #8. History of VTE: Patient with history of DVT, PE, previously on Coumadin which during prior admission had been held with IV vitamin K administered given acute presentation with GI bleed, given repeat presentation we will continue to hold Coumadin as there initially been a thought about resumption in 5 days. #9. History AAA: Status post repair 2006, holding aspirin as well as Coumadin given again recurrent bleeding status, recent alteration with hypertensive medications as noted with parent agents, continue statin. #10. Valvular heart disease: Status post AVR, ECHO w/ EF 55 to 60%, normal LV systolic function, trivial MR, mild diffuse aortic valve calcification. #11. Anxiety and depression: We will continue patient home duloxetine regimen. #12. BPH: We will continue patient home Flomax regimen. #13. Obesity: Weight loss and lifestyle changes encouraged. #14. DVT prophylaxis: SCDs. #15. CODE status: present for discussions. Patient HCPOA is their son Teddy and living will is currently in place. Code status Full Code status. Charges/Coding Visit Charges Inpatient E&M: 20463 Init Hosp L3
[2023-01-27] MEDS: 0.9% Normal Saline 1,000 ML 999 ML IV (20:15)
[2023-01-27 20:23] VITALS: BP 121/46; PULSE 60; RESP 16; O2SAT 95
--- NOTE | 2023-01-27 20:28 | NURSING ---
[facility] called. Notified pt will be staying for admit.
[2023-01-27 21:04] VITALS: BP 111/48; PULSE 79; RESP 16; TEMP 36.7; O2SAT 94
--- NOTE | 2023-01-27 21:26 | EDS_ITS ---
HPI HPI - GI History of Present Illness Chief Complaint: GI Bleed Narrative Narrative: 77-year-old male with recent admission for GI bleed. This was upper GI bleed. Patient was on Coumadin. He was seen by Dr. Hackett. He had upper endoscopy. Ultimately he was discharged home. He is started on Coumadin again since he has been discharged. He is also on iron supplements. Apparently had some black stool that was dripping after a bowel movement. This was tested at the longterm and apparently he has Hemoccult positive stool. Patient is unable to give much of a history. states that she did not hear about until this afternoon. There has not been any bloody stools. He does not have any complaints. [facility] Medical History Amputation of right great toe Aortic aneurysm without rupture COVID-19 Diabetes Diabetic neuropathy HLD (hyperlipidemia) HTN (hypertension) Hyperkalemia Lactic acidosis Leukocytosis NSTEMI, initial episode of care Osteomyelitis Pulmonary emboli RBBB (right bundle 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) Second degree AV block, Mobitz type II Ulcer of right great toe due to diabetes mellitus Upper gastrointestinal bleed Ureterolithiasis Valvular heart disease Home Medications losartan 50 mg tablet 50 mg PO DAILY blood pressure 03/24/18 [History Last Taken 01/20/23] atorvastatin 40 mg tablet 40 mg PO QHS cholesterol 05/22/18 [History Last Taken 01/20/23] warfarin 5 mg tablet (Jantoven) 7.5 mg PO SUTUWETHFRSA anticoagulant 05/22/18 [History Last Taken 01/20/23] tamsulosin 0.4 mg capsule 0.4 mg PO QHS PROSTATE 03/02/22 [History Last Taken 01/20/23] warfarin 5 mg tablet 10 mg PO MO BLOOD THINNER 03/02/22 [History Last Taken 01/02/23] amlodipine 2.5 mg tablet 2.5 mg PO DAILY BP 30 days #30 tabs 07/11/22 [Rx Last Taken 01/20/23] acetaminophen 325 mg tablet 650 mg (2 x 325 mg) PO Q4H PRN PRN PAIN AND FEVER #0 tabs 01/08/23 [Rx Last Taken 01/19/23] melatonin 3 mg tablet 3 mg PO QHS PRN PRN Insomnia #1 TAB 01/08/23 [Rx Last Taken Unknown] cholecalciferol (vitamin D3) 1,250 mcg (50,000 unit) tablet 1,250 mcg PO MO SUPPLEMENT 01/21/23 [History Last Taken 01/14/23] duloxetine 60 mg capsule,delayed release (Cymbalta) 60 mg PO DAILY DEPRESSION 01/21/23 [History Last Taken 01/20/23] insulin lispro 100 unit/mL subcutaneous pen (Humalog KwikPen (U-100) Insulin) See Protocol subcut ACHS DM 01/21/23 [History Last Taken 01/21/23] metformin 1,000 mg tablet 1,000 mg PO BID DM 01/21/23 [History Last Taken 01/20/23] ascorbic acid (vitamin C) 500 mg tablet 500 mg PO BID #60 tabs 01/26/23 [Rx Last Taken Unknown] ferrous sulfate 325 mg (65 mg iron) tablet,delayed release 325 mg PO DAILY #30 tabs 01/26/23 [Rx Last Taken Unknown] insulin glargine 100 unit/mL (3 mL) subcutaneous pen (Lantus Solostar U-100 Insulin) 15 unit (0.15 mL) subcut DAILY diabetes #15 mL 01/26/23 [Rx Last Taken 01/20/23] memantine 10 mg tablet 10 mg PO QPM 30 days #30 tabs 01/26/23 [Rx Last Taken Unknown] pantoprazole 40 mg tablet,delayed release 40 mg PO BID 30 days #60 tabs 01/26/23 [Rx Last Taken Unknown] sennosides 8.6 mg-docusate sodium 50 mg tablet (Stool Softener-Stimulant Laxative) 2 tab PO BID PRN Constipation #0 tabs 01/26/23 [Rx Last Taken Unknown] sucralfate 1 gram tablet 1 g PO 0700,1100,1600 30 days #90 tabs 01/26/23 [Rx La st Taken Unknown] Allergy/AdvReac Type Severity Reaction Status Date / Time propofol AdvReac Other Verified 01/27/23 18:06 Family History Mother Heart disease Diabetes Hypertension Father Heart disease Surgical History H/O aortic valve repair History of foot surgery History of thoracic aortic aneurysm repair Hx of abdominal surgery Social History housing: longterm current occupational status: retired Smoking Status: Never smoker alcohol intake: never substance use type: does not use ROS ROS ED Review of Systems ROS Unobtainable: due to mental status EXAM Physical Exam Const Vital Signs: 01/27/23 17:58 01/27/23 20:23 Temperature 98.0 F Temperature Source Oral Pulse Rate 77 60 Respiratory Rate 22 H 16 Blood Pressure 129/46 H 121/46 H Blood Pressure Mean 73 71 Pulse Ox 96 95 Oxygen Delivery Method Room Air Room Air Positive well nourished General Appearance ED: NAD and pallor HEENT Reports moist mucous membranes normocephalic and atraumatic Eyes General Eye ED: Yes pale conjunctiva Resp normal respiratory effort and clear to auscultation bilaterally Auscultation: Negative for rales, rhonchi or wheezes Cardio regular rate and regular rhythm GI non-tender Neuro CN's II-XII intact bilaterally Sensorium / Orientation: alert Motor Exam: general weakness Psych Psych Narrative: At baseline mental status Skin General Skin Exam: pallor; Negative for jaundice MDM MDM MDM Narrative Medical decision making narrative: Patient presenting with black stools. This was Hemoccult positive at the longterm. Given that he recently had a GI bleed and is on Coumadin this is likely to be positive for some time. Differential includes upper GI bleed, lower GI bleed, Coumadin coagulopathy, electrode normalities, anemia, hyperglycemia, dehydration. CBC to assess white blood cell count, hemoglobin, platelets, differential. CMP to assess liver function, renal function, electrolytes. Lipase to assess for pancreatitis. Patient was given IV fluids. I did not do a Hemoccult as this would likely be positive again. I did obtain an INR as well as part of his work-up. CBC shows a hemoglobin of 8.2 which is slightly less than 8.6 when he is here. Blood cell count 10.9. Platelets 259. Creatinine at baseline at 1.492. AST and ALT are slightly elevated at 68 and 81 respectively. Lipase was minimally elevated at 233. Patient was typed and screened. Discussed the case with Dr. Hackett and he recommended a CT angiogram to determine if he was actually bleeding or not. This was discussed with the hospitalist and the patient will be admitted. CT angiogram results are pending. Patient started on Protonix. INR came back at 1.6. Impression: 1. Acute blood loss anemia 2. GI bleed Lab Data Labs: Laboratory Results - last 24 hr 01/27/23 18:20 WBC 10.9 RBC 2.91 L Hgb 8.2 L Hct 25.6 L MCV 88.0 MCH 28.2 MCHC 32.0 RDW Std Deviation 49.3 H RDW Coeff of Nathaniel 15.5 H Plt Count 259 MPV 9.9 Immature Gran % (Auto) 2.600 H Neut % (Auto) 73.8 H Lymph % (Auto) 12.4 L Webster % (Auto) 8.2 Eos % (Auto) 2.9 Baso % (Auto) 0.1 Absolute Neuts (auto) 8.0 H Absolute Lymphs (auto) 1.35 Nucleated RBC % 0.2 PT 19.4 H INR 1.6 Sodium 140 Potassium 4.0 Chloride 111 H Carbon Dioxide 25.0 Anion Gap 4 L BUN 29 H Creatinine 1.42 H Estim Creat Clear Calc 50.80 Est GFR (MDRD) Af Amer 63 Est GFR (MDRD) Non-Af 52 L BUN/Creatinine Ratio 20.4 H Glucose 215 H Calcium 8.3 L Total Bilirubin 0.50 AST 68 H ALT 81 H Alkaline Phosphatase 78 Total Protein 5.3 L Albumin 1.8 L Globulin 3.5 Albumin/Globulin Ratio 0.5 L Lipase 233 H Blood Type A POSITIVE Antibody Screen NEGATIVE Discharge Plan Disposition Disposition: Acute Care Hospital [facility] Discharge Date/Time: 01/27/23 21:20
[2023-01-27 21:39] LABS: Magnesium 1.7 mg/dL (1.6-2.6); Phosphorus 2.6 mg/dL (2.5-4.9)
[2023-01-27 21:40] VITALS: BMI 28.9
[2023-01-27 21:41] VITALS: BP 149/58; PULSE 73; RESP 18; TEMP 36.5; O2SAT 92
[2023-01-27] MEDS: 0.9% Normal Saline 1,000 ML 100 ML IV (22:07)
[2023-01-27] MEDS: Insulin Lispro 100 UNIT/ML INSULN.PEN SC (22:58)
[2023-01-27] MEDS: Memantine Hydrochloride 10 MG Tablet PO (22:58)
[2023-01-27] MEDS: Ascorbic Acid 500 MG Tablet PO (22:58)
[2023-01-27] MEDS: Tamsulosin HCl 0.4 MG Capsule PO (22:58)
[2023-01-27] MEDS: Atorvastatin Calcium 40 MG Tablet PO (22:58)
[2023-01-27 23:00] LABS: Hematocrit 25.6 % (40-54); Hemoglobin 7.9 g/dL (13.0-16.5)
[2023-01-28 00:18] LABS: Procalcitonin 0.12 ng/mL (0.00-0.09)
[2023-01-28 01:30] LABS: M R Staph aureus DNA By PCR Negative (Negative); Probe Check PASS; Specimen Processing Control PASS
--- NOTE | 2023-01-28 02:10 | PCM.RX.CS ---
Consult Antibiotic Management Pharmacy has been consulted to manage selected antiobiotic: Vancomycin Type of Intervention Type of Consult: New start Labs Labs: Sodium 140 mmol/L (136-145) 01/27/23 18:20 Potassium 4.0 mmol/L (3.5-5.1) 01/27/23 18:20 Chloride 111 mmol/L (98-107) H 01/27/23 18:20 Carbon Dioxide 25.0 mmol/L (21.0-32.0) 01/27/23 18:20 Anion Gap 4 (5-15) L 01/27/23 18:20 BUN 29 mg/dL (7-18) H 01/27/23 18:20 Creatinine 1.42 mg/dL (0.70-1.30) H 01/27/23 18:20 Est GFR (MDRD) Af Amer 63 mL/min (>60) 01/27/23 18:20 Est GFR (MDRD) Non-Af 52 mL/min (>60) L 01/27/23 18:20 BUN/Creatinine Ratio 20.4 RATIO (10-20) H 01/27/23 18:20 Glucose 215 mg/dL (74-106) H 01/27/23 18:20 Microbiology Microbiology: Microbiology 01/27/23 23:00 Urine, Clean Catch Legionella Antigen - Final 01/27/23 23:00 Urine, Clean Catch Streptococcus pneumoniae Antigen (M - Final Goal Trough Goal Trough: 15-20 mcg/mL Pharmacy Plan for Drug Dosing Pharmacy Plan for Drug Dosing: Pharmacy Service will continue to monitor and adjust dosing as required. Date/Time Labs Ordered Labs to be done on [date and time ordered]: 01/29 @ 1200
[2023-01-28 03:16] LABS: Absolute Lymphocyte Count 1.61 X10^3/uL (0.83-4.51); Absolute Neutrophil Count 7.8 X10^3/uL (2.0-7.7); Basophil# 0.03 X10^3/uL; Basophil% 0.3 % (0-1); Eosinophil# 0.31 X10^3/uL; Eosinophils% 2.9 % (0-5); Hematocrit 28.9 % (40-54); Lymphocyte # 1.61 X10^3/ul (0.83-4.51); Lymphocyte % 14.9 % (19-41); Mean Corp Hgb Conc 31.1 g/dL (32-36); Mean Corpuscular Hgb 27.4 pg (27.0-32.0); Mean Corpuscular Volume 88.1 fL (80-94); Mean Platelet Vol. 9.8 fl (6.2-12.0); Monocyte# 0.75 X10^3/uL; Monocyte% 6.9 % (0-10); NRBC Flagged by Analyzer 0.3 % (0-5); Neutrophil # 7.77 X10^3/uL (2.7-7.7); Neutrophil % 71.7 % (47-70); Platelet Count 278 K/mm3 (150-450); RBC Distribution Width CV 15.5 % (11.6-14.6); RBC Distribution Width SD 49.1 fl (35.1-43.9); Red Blood Count 3.28 M/mm3 (4.6-6.2); White Blood Count 10.8 K/mm3 (4.4-11.0)
[2023-01-28 03:39] VITALS: BP 112/47; PULSE 55; RESP 18; TEMP 36.8; O2SAT 96
--- NOTE | 2023-01-28 04:06 | EKG12_ITS ---
Test Reason : AM EKG Blood Pressure : / mmHG Vent. Rate : 041 BPM Atrial Rate : 083 BPM P-R Int : 178 ms QRS Dur : 142 ms QT Int : 508 ms P-R-T Axes : 051 -53 054 degrees QTc Int : 419 ms Sinus rhythm with 2nd degree A-V block with 2:1 A-V conduction Left axis deviation Right bundle branch block Abnormal ECG Confirmed by ANISA COLBERT, YECENIA ([id number]), editor dictionary SOFIA CAMERON ([id number]) on 02/05/2023 7:16:04 AM Referred By: Confirmed By:YECENIA LANGE MD
[2023-01-28 04:30] LABS: Bedside Glucose 163 mg/dL (74-106)
[2023-01-28 07:23] LABS: Bedside Glucose 148 mg/dL (74-106)
[2023-01-28 07:30] LABS: ALB/GLOB Ratio 0.5 RATIO (0.9-2.4); AST(SGOT) 49 U/L (15-37); Alanine Aminotransfer ALT/SGPT 85 U/L (16-61); Alkaline Phosphatase 81 U/L (45-117); Anion Gap 5 (5-15); BUN 25 mg/dL (7-18); Calcium,Total 8.5 mg/dL (8.5-10.1); Chloride 111 mmol/L (98-107); Creatinine, Serum 1.25 mg/dL (0.70-1.30); EST Glomerular Filtration Rate 60 mL/min (>60); Est Glom Filt Rate - Afr Amer 73 mL/min (>60); Estimated Creatinine Clearance 57.71 ml/min; Globulin 3.8 g/dL (2.2-4.2); Glucose 161 mg/dL (74-106); Potassium 3.6 mmol/L (3.5-5.1); Protein, Total 5.8 g/dL (6.4-8.2); Sodium Level 140 mmol/L (136-145)
--- NOTE | 2023-01-28 08:10 | RAD_ITS ---
STUDY: X-RAY CHEST REASON FOR EXAM: Male, 77 years old. ? PNA TECHNIQUE: PA and lateral views of the chest. COMPARISON: Chest x-ray dated January 21, 2023 FINDINGS: The lungs are clear and expanded. There is no demonstrated pleural abnormality. Sternal cerclage wires and vascular clips are present from a prior sternotomy and coronary artery bypass graft procedure (CABG). Normal heart size. Normal mediastinum and francesca. Normal visualized pulmonary arteries. There is atherosclerotic tortuosity of the aortic arch and descending thoracic aorta. There are diffuse degenerative changes of the visualized thoracic spine. Normal visualized ribs, clavicles, and shoulders. There is no demonstrated abnormality of the visualized soft tissue structures of the upper abdomen. RAD/Chest PA and Lateral IMPRESSION: Degenerative changes, as described above. No demonstrated acute cardiopulmonary process. Electronically Signed: Ean Smith MD at 8:29 EDT ,
--- NOTE | 2023-01-28 08:46 | PCM.PN.HOSP ---
Reason for Visit Reason for Visit: Diagnoses Gastrointestinal hemorrhage, unspecified (01/27/23) Subjective Subjective Patient denies abdominal pain, had bowel movement earlier but could not comment any further unless. Did not voice any other complaints at time of exam Objective Data Objective Data Vital Signs: Vital Signs Temp Pulse Resp BP Pulse Ox O2 Del Method 98.2 F 55 L 18 112/47 L 96 Room Air 01/28/23 03:39 01/28/23 03:39 01/28/23 03:39 01/28/23 03:39 01/28/23 03:39 01/28/23 03:39 Oxygen Delivery Method Room Air Weight: 99.4 kg Body Mass Index (BMI) 28.9 Intake & Output: Intake and Output for Last 24 Hours 01/26/23 01/27/23 01/28/23 23:59 23:59 23:59 Intake Total 1035 / 1035 999.00 / 999.00 Output Total 400 / 400 Balance 1035 / 1035 599.00 / 599.00 Lab / Micro Data 01/28/23 02:48 01/28/23 02:48 Labs: Laboratory Results - last 24 hr 01/27/23 18:20: WBC 10.9, RBC 2.91 L, Hgb 8.2 L, Hct 25.6 L, MCV 88.0, MCH 28.2, MCHC 32.0, RDW Std Deviation 49.3 H, RDW Coeff of Nathaniel 15.5 H, Plt Count 259, MPV 9.9, Immature Gran % (Auto) 2.600 H, Neut % (Auto) 73.8 H, Lymph % (Auto) 12.4 L, [place] % (Auto) 8.2, Eos % (Auto) 2.9, Baso % (Auto) 0.1, Absolute Neuts (auto) 8.0 H, Absolute Lymphs (auto) 1.35, Nucleated RBC % 0.2, PT 19.4 H, INR 1.6, Sodium 140, Potassium 4.0, Chloride 111 H, Carbon Dioxide 25.0, Anion Gap 4 L, BUN 29 H, Creatinine 1.42 H, Estim Creat Clear Calc 50.80, Est GFR (MDRD) Af Amer 63, Est GFR (MDRD) Non-Af 52 L, BUN/Creatinine Ratio 20.4 H, Glucose 215 H, Calcium 8.3 L, Phosphorus 2.6, Magnesium 1.7, Total Bilirubin 0.50, AST 68 H, ALT 81 H, Alkaline Phosphatase 78, Total Protein 5.3 L, Albumin 1.8 L, Globulin 3.5, Albumin/Globulin Ratio 0.5 L, Lipase 233 H, Blood Type A POSITIVE, Antibody Screen NEGATIVE 01/27/23 22:01: POC Glucose 163 H 01/27/23 22:50: Hgb 7.9 L, Hct 25.6 L, Procalcitonin 0.12 H 01/27/23 23:20: MRSA (PCR) Negative 01/28/23 02:48: WBC 10.8, RBC 3.28 L, Hgb Cancelled 01/28/23 02:48: Hgb 9.0 L, Hct Cancelled 01/28/23 02:48: Hct 28.9 L, MCV 88.1, MCH 27.4, MCHC 31.1 L, RDW Std Deviation 49.1 H, RDW Coeff of Nathaniel 15.5 H, Plt Count 278, MPV 9.8, Immature Gran % (Auto) 3.300 H, Neut % (Auto) 71.7 H, Lymph % (Auto) 14.9 L, [place] % (Auto) 6.9, Eos % (Auto) 2.9, Baso % (Auto) 0.3, Absolute Neuts (auto) 7.8 H, Absolute Lymphs (auto) 1.61, Nucleated RBC % 0.3, Diff Path Review Cancelled, Sodium 140, Potassium 3.6, Chloride 111 H, Carbon Dioxide 24.0, Anion Gap 5, BUN 25 H, Creatinine 1.25, Estim Creat Clear Calc 57.71, Est GFR (MDRD) Af Amer 73, Est GFR (MDRD) Non-Af 60, BUN/Creatinine Ratio 20.0, Glucose 161 H, Calcium 8.5, Total Bilirubin 0.70, AST 49 H, ALT 85 H, Alkaline Phosphatase 81, Total Protein 5.8 L, Albumin 2.0 L, Globulin 3.8, Albumin/Globulin Ratio 0.5 L 01/28/23 05:54: POC Glucose 148 H Micro: Microbiology 01/27/23 23:00 Urine, Clean Catch Legionella Antigen - Final 01/27/23 23:00 Urine, Clean Catch Streptococcus pneumoniae Antigen (M - Final Radiography Diagnostic Testing: Radiology Impression Chest/Abdomen/Pelvis CTA 01/27/23 19:25 IMPRESSION: Patchy posterior left lower lobe airspace disease, to include pneumonia. Recommend follow-up to resolution. Colonic diverticulosis without evidence of diverticulitis. No acute abnormality of the abdomen, to include otherwise unremarkable CT appearance of the bowel. Electronically Signed: Alexx Torres MD at 22:03 EDT , Chest X-Ray 01/28/23 08:10 IMPRESSION: Degenerative changes, as described above. No demonstrated acute cardiopulmonary process. Electronically Signed: Ean Smith MD at 8:29 EDT , Physical Exam Narrative General: Alert, oriented, no apparent distress HEENT: Atraumatic, normocephalic Eyes: Anicteric, normal conjunctiva, extraocular movements grossly intact Neck: Supple Respiratory: Clear to auscultation bilaterally, normal respiratory effort Cardiovascular: Regular rate GI: Soft, nontender, nondistended Extremities: No edema Musculoskeletal: Moving all extremities Neuro: No overt focal neurological deficits Skin: No rashes appreciated Psych: Cooperative Assessment & Plan Assessment/Plan (1) Upper gastrointestinal bleeding: PLAN: Plan #Recurrent GI bleed w/ recent ABLA secondary to upper GI bleed -Re-presented 01/27 with several episodes of bloody stools and positive occult stool at [facility] prompting ED evaluation -Recent EGD 01/23/23 w/ single 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 Patient n.p.o. pending GI evaluation -GI consulted -CTA chest/abdomen/pelvis overall unremarkable from a GI perspective #Type 2 diabetes mellitus -Glucose checks and sliding scale insulin #Left lower lobe airspace disease -Patchy posterior left lower lobe airspace disease with peribronchial thickening -Patient had not reported any symptoms and is afebrile however does have slight left shift and Pro-Dmitry of 0.12 which is nonspecific -Urine antigens negative, COVID-negative, respiratory panel pending -Sputum culture ordered but not collected -MRSA screen negative so we will discontinue vancomycin -Will likely de-escalate or DC Zosyn at 24 to 48 hours pending clinical progress and symptom evaluation #CKD stage IIIa -Supportive care #Hx DVT/PE -Holding AC given recurrent GIB #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 -It was felt that the heart block was secondary to octreotide which had been DC'd, echo with EF 55 to 60% and normal LV systolic function with trivial MR and mild diffuse aortic calcification, plan was to forego pacemaker at the time -Continue to f/u cards outpt #Dementia -Unclear subtype, patient off of Aricept due to his heart block and has been continued on memantine #History of AAA -Status post repair 2006, holding aspirin as well as Coumadin given again recurrent bleeding status, recent alteration with hypertensive medications as noted with parent agents, continue statin #Anxiety and depression: We will continue patient home duloxetine regimen. #BPH: We will continue patient home Flomax regimen. #DVT ppx: SCDs Yisel Rendon MD Time spent in the patient's overall evaluation,decision-making process, review of diagnostic data, adjustment of management, discussion with other providers, nursing nursing and ancillary staff involved in patient's care documentation, 51 minutes Charges/Coding Visit Charges Inpatient E&M: 62486 Subs Hosp L3
[2023-01-28] MEDS: 0.9% Normal Saline 1,000 ML 100 ML IV (09:18)
[2023-01-28 09:40] VITALS: BP 118/56; PULSE 56; RESP 18; TEMP 36.5; O2SAT 94
--- NOTE | 2023-01-28 11:25 | RAD_ITS ---
INDICATION: Midline Placement EXAMINATION/TECHNIQUE: X-RAY - XR Chest 1 View COMPARISON: AP upright chest x-ray January 28, 2023 0810 hours FINDINGS: LINES/DEVICES: A new PICC line catheter passing up from right arm has its tip at the cavoatrial junction. LUNGS: No consolidation, edema or effusion. No pneumothorax. MEDIASTINUM AND CARDIOVASCULAR STRUCTURES: Numerous wire median sternotomy sutures again noted over the midline. Cardiac silhouette not enlarged. Central airways and mediastinal contour are unremarkable. There is mild calcification in the thoracic aortic arch and mild tortuosity of the descending aorta. BONES AND SOFT TISSUES: Multilevel degenerative changes of the mid to lower thoracic spine again noted. RAD/CXR for Line Placement IMPRESSION: New right PICC line tip at the cavoatrial junction. No acute cardiopulmonary disease. Electronically Signed: Manan Wilcox MD at 12:30 EDT Reading Location ID and State: [id number] / Unknown , Service support ,
[2023-01-28 12:59] VITALS: O2SAT 95
--- NOTE | 2023-01-28 13:38 | CASEMGMT ---
[facility]charge [facility] Tamika Encinas, Discharge Planning Asst.
[2023-01-28] MEDS: Vancomycin IV 1,000 MG/200 ML BAG 200 MG IV (14:00)
--- NOTE | 2023-01-28 15:22 | CASEMGMT ---
VERO received a call from [facility] ([facility]). Soco said they received a copy of patient's immunizations and allergies from patient's PCP. Under the allergies section it indicates patient has a reaction/intolerance to Pantoprazole which presents as diarrhea. VERO passed along this information to the RN. Keily Muniz [employer] PATRICIA
--- NOTE | 2023-01-28 17:06 | NURSING ---
Paperwork brought in from to hospital stating Protonix was an allergy. Side effect was diarrhea. Dr. Roxann paged and information reviewed with him. He does not consider it an allergy and states that the patient needs medication to protect his stomach.
[2023-01-28 21:02] VITALS: BP 131/55; PULSE 53; RESP 16; TEMP 36.8; O2SAT 98
[2023-01-28] MEDS: Memantine Hydrochloride 10 MG Tablet PO (21:13)
[2023-01-28] MEDS: Ascorbic Acid 500 MG Tablet PO (21:13)
[2023-01-28] MEDS: Atorvastatin Calcium 40 MG Tablet PO (21:13)
[2023-01-28] MEDS: Tamsulosin HCl 0.4 MG Capsule PO (21:13)
[2023-01-28] MEDS: Insulin Lispro 100 UNIT/ML INSULN.PEN SC (22:20)
[2023-01-28 22:39] LABS: Bedside Glucose 177 mg/dL (74-106)
[2023-01-28 22:39] LABS: Bedside Glucose 199 mg/dL (74-106)
[2023-01-29 03:18] VITALS: BP 133/53; PULSE 49; RESP 16; TEMP 36.4; O2SAT 96
[2023-01-29 06:00] VITALS: BMI 29.2
[2023-01-29] MEDS: Sucralfate 1 GM Tablet PO ×2 (06:13→17:06)
[2023-01-29 06:33] LABS: Absolute Lymphocyte Count 1.74 X10^3/uL (0.83-4.51); Absolute Neutrophil Count 5.6 X10^3/uL (2.0-7.7); Basophil# 0.03 X10^3/uL; Basophil% 0.3 % (0-1); Eosinophils% 3.4 % (0-5); Hematocrit 26.1 % (40-54); Hemoglobin 8.1 g/dL (13.0-16.5); Lymphocyte # 1.74 X10^3/ul (0.83-4.51); Mean Corpuscular Hgb 27.1 pg (27.0-32.0); Mean Corpuscular Volume 87.3 fL (80-94); Mean Platelet Vol. 9.5 fl (6.2-12.0); Monocyte# 0.59 X10^3/uL; Monocyte% 6.8 % (0-10); NRBC Flagged by Analyzer 0 % (0-5); Neutrophil # 5.63 X10^3/uL (2.7-7.7); Neutrophil % 64.6 % (47-70); POSITIVE MORPHOLOGY YES; Platelet Count 292 K/mm3 (150-450); RBC Distribution Width CV 15.5 % (11.6-14.6); RBC Distribution Width SD 48.3 fl (35.1-43.9); Red Blood Count 2.99 M/mm3 (4.6-6.2); White Blood Count 8.7 K/mm3 (4.4-11.0)
[2023-01-29 06:42] LABS: Differential Indicated SCAN CRITERIA MET
[2023-01-29 06:49] LABS: Bedside Glucose 144 mg/dL (74-106)
[2023-01-29 07:13] LABS: Anion Gap 5 (5-15); BUN 18 mg/dL (7-18); BUN/Creat Ratio 16.2 RATIO (10-20); Calcium,Total 8.3 mg/dL (8.5-10.1); Chloride 113 mmol/L (98-107); Creatinine, Serum 1.11 mg/dL (0.70-1.30); EST Glomerular Filtration Rate 69 mL/min (>60); Est Glom Filt Rate - Afr Amer 83 mL/min (>60); Estimated Creatinine Clearance 64.98 ml/min; Glucose 161 mg/dL (74-106); Potassium 3.5 mmol/L (3.5-5.1); Sodium Level 141 mmol/L (136-145)
[2023-01-29 08:12] LABS: Reactive Lymphocyte RARE
[2023-01-29 08:33] VITALS: BP 136/50; PULSE 42; RESP 16; TEMP 36.5; O2SAT 95
[2023-01-29] MEDS: amLODIPine 2.5 MG Tablet PO (08:47)
[2023-01-29] MEDS: Ferrous Sulfate 325 MG Tablet PO (08:48)
[2023-01-29] MEDS: DULoxetine Hcl 60 MG Capsule PO (08:48)
[2023-01-29] MEDS: Ascorbic Acid 500 MG Tablet PO ×2 (08:51→21:57)
[2023-01-29 09:11] VITALS: O2SAT 95
[2023-01-29] MEDS: Insulin Lispro 100 UNIT/ML INSULN.PEN SC ×3 (11:55→21:56)
[2023-01-29] MEDS: Insulin Glargine-YFGN 100 UNIT/ML Pen 15 UNIT SC (11:57)
--- NOTE | 2023-01-29 11:59 | NURSING ---
Staff assist called. Pt observed sitting up in bed, coughing and wheezing. Per EVS at bedside, pt was eating lunch and started choking. SpO2 in 80s. Pt continued to cough, able to clear airway. 2L NC placed on pt. Suction set up at bedside. Pt able to get item down, did not cough it up. Pt made NPO, removed food from room, ST consulted. Notified Dr Rendon, chest xray ordered. Pt remains on 2LNC. Xray notified of stat xray and on the way. Pt able to speak, thought voice is hoarse. SpO2 99%.
--- NOTE | 2023-01-29 12:00 | RAD_ITS ---
INDICATION: ASPIRATION EXAMINATION/TECHNIQUE: X-RAY - XR Chest 1 View COMPARISON: Study of one day prior FINDINGS: LINES/DEVICES: None. LUNGS: Patchy densities project over the left upper lung and right lower lung as well as in the left lower lung not as well seen on the prior study. Otherwise no additional focal consolidation, edema or effusion. No pneumothorax. MEDIASTINUM AND CARDIOVASCULAR STRUCTURES: Cardiac silhouette not enlarged. Central airways and mediastinal contour are unremarkable. BONES AND SOFT TISSUES: Unremarkable. RAD/Chest 1 View (Portable) IMPRESSION: Patchy densities project over the left upper lung and right lower lung as well as in the left lower lung not as well seen on the prior study. Electronically Signed: Christ Correa, at 12:46 EDT ,
[2023-01-29 12:19] LABS: Bedside Glucose 193 mg/dL (74-106)
--- NOTE | 2023-01-29 12:27 | EX.PCM.PN.GI ---
Subjective Subjective Patient is resting in a chair without any complaints. He is tolerating a normal diet. He is having bowel movements today that are normal in color. He denies any bright red blood per rectum or melanotic stools. He also denies any hematochezia. Objective Data Objective Data Vital Signs: Vital Signs Temp Pulse Resp BP Pulse Ox O2 Del Method 97.7 F L 42 L 16 136/50 H 95 Room Air 01/29/23 08:33 01/29/23 08:33 01/29/23 08:33 01/29/23 08:33 01/29/23 09:11 01/29/23 09:11 Oxygen Delivery Method Room Air Weight: 221 lb 5.506 oz Body Mass Index (BMI) 29.2 Intake & Output: Intake and Output for Last 24 Hours 01/27/23 01/28/23 01/29/23 23:59 23:59 23:59 Intake Total 1035 / 1035 4217.33 / 4217.33 182.67 / 182.67 Output Total 1000 / 1000 300 / 300 Balance 1035 / 1035 3217.33 / 3217.33 -117.33 / -117.33 Lab / Micro Data 01/29/23 06:14 01/29/23 06:14 Labs: Laboratory Results - last 24 hr 01/28/23 16:14: POC Glucose 199 H 01/28/23 22:19: POC Glucose 177 H 01/29/23 06:08: POC Glucose 144 H 01/29/23 06:14: WBC 8.7, RBC 2.99 L, Hgb 8.1 L, Hct 26.1 L, MCV 87.3, MCH 27.1, MCHC 31.0 L, RDW Std Deviation 48.3 H, RDW Coeff of Nathaniel 15.5 H, Plt Count 292, MPV 9.5, Immature Gran % (Auto) 4.900 H, Neut % (Auto) 64.6, Lymph % (Auto) 20.0, [facility] % (Auto) 6.8, Eos % (Auto) 3.4, Baso % (Auto) 0.3, Absolute Neuts (auto) 5.6, Absolute Lymphs (auto) 1.74, Nucleated RBC % 0, Reactive Lymphocytes RARE, Sodium 141, Potassium 3.5, Chloride 113 H, Carbon Dioxide 23.0, Anion Gap 5, BUN 18, Creatinine 1.11, Estim Creat Clear Calc 64.98, Est GFR (MDRD) Af Amer 83, Est GFR (MDRD) Non-Af 69, BUN/Creatinine Ratio 16.2, Glucose 161 H, Calcium 8.3 L 01/29/23 11:52: POC Glucose 193 H Micro: Microbiology 01/28/23 13:39 Mucosa - Nose Respiratory Panel (PCR) - Final 01/27/23 23:00 Urine, Clean Catch Legionella Antigen - Final 01/27/23 23:00 Urine, Clean Catch Streptococcus pneumoniae Antigen (M - Final Radiography Diagnostic Testing: Radiology Impression Chest X-Ray 01/28/23 11:25 IMPRESSION: New right PICC line tip at the cavoatrial junction. No acute cardiopulmonary disease. Electronically Signed: Manan Wilcox MD at 12:30 EDT Reading Location ID and State: [id number] / Unknown , Service support , Physical Exam Narrative General: Alert, oriented, no apparent distress HEENT: Atraumatic, normocephalic Eyes: Anicteric, normal conjunctiva, extraocular movements grossly intact Neck: Supple Respiratory: Clear to auscultation bilaterally, normal respiratory effort Cardiovascular: Regular rate GI: Soft, nontender, nondistended Extremities: No edema Musculoskeletal: Moving all extremities Neuro: No overt focal neurological deficits Skin: No rashes appreciated Psych: Cooperative Assessment & Plan Assessment/Plan (1) Anemia: QUALIFIERS: Anemia type: iron deficiency Iron deficiency anemia type: other iron deficiency Qualified Code(s): D50.8 - Other iron deficiency anemias (2) Warfarin-induced coagulopathy: (3) ABLA (acute blood loss anemia): PLAN: Plan 77-year-old with past medical history of PE, DVT presents with worsening shortness of breath and fatigue and discovered to have a significant anemia. Stools were checked for blood and neuro positive. He underwent an upper endoscopy after his INR was corrected and was discovered to have severe ulcerations of his duodenum. Biopsies were taken in the stomach for H. pylori and biopsies also were taken. Ulcerations were treated endoscopically. His hemoglobin seems to be stable. Recommendation: PPI can be switched to Protonix 40 mg p.o. every 12 hours. He will need sulcralfate 1 g p.o. 3 times a day for approximately 8 to 12 weeks. He can take the Protonix for 12 weeks. He will need repeat upper endoscopy in approximately 8 to 12 weeks to ensure healing. 01/29: Patient had a slight trend down from 9-8.1 and his hemoglobin I would recommend to check his iron studies to see if he would benefit from IV iron. I suspect there are some components of anemia chronic disease therefore we will not transfuse it without checking his iron, ferritin, transferrin, reticulocyte count and LDH. He may benefit from Epogen if he is not iron deficient. Charges/Coding Visit Charges Inpatient E&M: 07721 Subs Hosp L3
[2023-01-29 13:01] LABS: Vancomycin, Trough Level 7.8 ug/mL (5.0-15.0)
--- NOTE | 2023-01-29 14:06 | PN.HOSP_ITS ---
Reason for Visit Reason for Visit: Diagnoses Other iron deficiency anemias (01/27/23) Acute posthemorrhagic anemia (01/27/23) Hemorrhagic disorder due to extrinsic circulating anticoagulants (01/27/23) Gastrointestinal hemorrhage, unspecified (01/27/23) Adverse effect of anticoagulants, initial encounter (01/27/23) Subjective Subjective Patient resting in bed had no complaints this a.m., was called midday and was reported patient choked on his lunch and initially desaturated however was able to clear his throat and swallow and O2 sat was 100% on 2 L. He was made n.p.o. and speech consulted. Patient evaluated after incident and denied any complaints, denied cough or shortness of breath Objective Data Objective Data Vital Signs: Vital Signs Temp Pulse Resp BP Pulse Ox O2 Del Method 97.7 F L 42 L 16 136/50 H 95 Room Air 01/29/23 08:33 01/29/23 08:33 01/29/23 08:33 01/29/23 08:33 01/29/23 09:11 01/29/23 09:11 Oxygen Delivery Method Room Air Weight: 100.4 kg Body Mass Index (BMI) 29.2 Intake & Output: Intake and Output for Last 24 Hours 01/27/23 01/28/23 01/29/23 23:59 23:59 23:59 Intake Total 1035 / 1035 4217.33 / 4217.33 182.67 / 182.67 Output Total 1000 / 1000 300 / 300 Balance 1035 / 1035 3217.33 / 3217.33 -117.33 / -117.33 Lab / Micro Data 01/29/23 06:14 01/29/23 06:14 Labs: Laboratory Results - last 24 hr 01/28/23 16:14: POC Glucose 199 H 01/28/23 22:19: POC Glucose 177 H 01/29/23 06:08: POC Glucose 144 H 01/29/23 06:14: WBC 8.7, RBC 2.99 L, Hgb 8.1 L, Hct 26.1 L, MCV 87.3, MCH 27.1, MCHC 31.0 L, RDW Std Deviation 48.3 H, RDW Coeff of Nathaniel 15.5 H, Plt Count 292, MPV 9.5, Immature Gran % (Auto) 4.900 H, Neut % (Auto) 64.6, Lymph % (Auto) 20. 0, [place] % (Auto) 6.8, Eos % (Auto) 3.4, Baso % (Auto) 0.3, Absolute Neuts (auto) 5.6, Absolute Lymphs (auto) 1.74, Nucleated RBC % 0, Reactive Lymphocytes RARE, Sodium 141, Potassium 3.5, Chloride 113 H, Carbon Dioxide 23.0, Anion Gap 5, BUN 18, Creatinine 1.11, Estim Creat Clear Calc 64.98, Est GFR (MDRD) Af Amer 83, Est GFR (MDRD) Non-Af 69, BUN/Creatinine Ratio 16.2, Glucose 161 H, Calcium 8.3 L 01/29/23 11:52: POC Glucose 193 H 01/29/23 12:07: Vancomycin Trough 7.8 Micro: Microbiology 01/28/23 13:39 Mucosa - Nose Respiratory Panel (PCR) - Final 01/27/23 23:00 Urine, Clean Catch Legionella Antigen - Final 01/27/23 23:00 Urine, Clean Catch Streptococcus pneumoniae Antigen (M - Final Radiography Diagnostic Testing: Radiology Impression Chest X-Ray 01/29/23 12:00 IMPRESSION: Patchy densities project over the left upper lung and right lower lung as well as in the left lower lung not as well seen on the prior study. Electronically Signed: Christ Correa, at 12:46 EDT Reading Location ID and State: [address] [place] [address] Tel , Service support , Physical Exam Narrative General: Alert, no apparent distress HEENT: Atraumatic, normocephalic Eyes: Anicteric, normal conjunctiva, extraocular movements grossly intact Neck: Supple Respiratory: Slight decreased at left base compared to right, normal respiratory effort Cardiovascular: Intermittently will be bradycardic on alternate with regular rate GI: Soft, nontender, nondistended Extremities: No edema Musculoskeletal: Moving all extremities Neuro: No overt focal neurological deficits Skin: No rashes appreciated Psych: Cooperative Assessment & Plan Assessment/Plan (1) Upper gastrointestinal bleeding: PLAN: Plan #Recurrent GI bleed w/ recent ABLA secondary to upper GI bleed -Re-presented 01/27 with several episodes of bloody stools and [facility] ED evaluation -Recent EGD 01/23/23 w/ single 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 Patient n.p.o. pending GI evaluation -GI consulted -CTA chest/abdomen/pelvis overall unremarkable from a GI perspective -01/29: No bright red blood per rectum or overt bleeding at this time, hemoglobin with slight downtrend but has been fairly stable. GI recommendations: PPI can be switched to Protonix 40 mg p.o. every 12 hours. He will need sulcralfate 1 g p.o. 3 times a day for approximately 8 to 12 weeks. He can take the Protonix for 12 weeks. He will need repeat upper endoscopy in approximately 8 to 12 weeks to ensure healing. Was additionally recommended to check iron studies. Patient n.p.o. as below, will keep PPI IV until evaluated by speech therapy to assess safety of swallowing. Iron test, reticulocyte count, LDH as well as B12 and folate studies ordered to further evaluate anemia. GI following #Dysphagia -Patient had episode where he seemed to be choking on his lunch, eventually was able to cough and swallow -Had been transiently hypoxic in the 80s but his O2 sat increased to 100% on 2 L after he was able to swallow -Unclear what extent may have been aspiration versus able to swallow food bolus -Chest x-ray with no collapse, patient maintaining O2 sat, does not need emergent bronchoscopy -N.p.o. pending speech eval -On evaluation after the incident patient resting comfortably with no wheezing and no respiratory distress and no respiratory complaints, continue to monitor #Type 2 diabetes mellitus -Glucose checks and sliding scale insulin -Continue insulin glargine, may need to hold or adjust dose if patient remains n.p.o. #Left lower lobe airspace disease -Patchy posterior left lower lobe airspace disease with peribronchial thickening -Patient had not reported any symptoms and is afebrile however does have slight left shift and Pro-Dmitry of 0.12 which is nonspecific -Urine antigens negative, COVID-negative, respiratory panel pending -Sputum culture ordered but not collected -MRSA screen negative so we will discontinue vancomycin -Will likely de-escalate or DC Zosyn at 24 to 48 hours pending clinical progress and symptom evaluation -01/29: Chest x-ray obtained due to choking episode, not grossly different from previous, will keep antibiotics today and reevaluate tomorrow but may be able to de-escalate #CKD stage IIIa -Supportive care #Hx DVT/PE -Holding AC given recurrent GIB #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 -It was felt that the heart block was secondary to octreotide which had been DC'd, echo with EF 55 to 60% and normal LV systolic function with trivial MR and mild diffuse aortic calcification, plan was to forego pacemaker at the time -Continue to f/u cards outpt -01/29: Has intermittently had bradycardia, patient on memantine and well rare this can also cause bradycardia so we will hold this and assess for improvement, if not may need to revisit cardiology involvement #Dementia -Unclear subtype, patient off of Aricept due to his heart block and has been continued on memantine -01/29: Has intermittently had bradycardia, patient on memantine and well rare this can also cause bradycardia so we will hold this #History of AAA -Status post repair 2006, holding aspirin as well as Coumadin given again recu rrent bleeding status, recent alteration with hypertensive medications as noted with parent agents, continue statin #Anxiety and depression: We will continue patient home duloxetine regimen. #BPH: We will continue patient home Flomax regimen. #DVT ppx: SCDs Yisel Rendon MD Time spent in the patient's overall evaluation,decision-making process, review of diagnostic data, adjustment of management, discussion with other providers, nursing nursing and ancillary staff involved in patient's care documentation, 51 minutes Charges/Coding Visit Charges Inpatient E&M: 49087 [facility] Hosp L3
[2023-01-29 14:30] VITALS: BP 113/52; PULSE 56; RESP 16; TEMP 36.4; O2SAT 100
[2023-01-29] MEDS: 0.9% Saline Lock 10 ML Syringe IV (14:39)
[2023-01-29 16:47] LABS: Bedside Glucose 205 mg/dL (74-106)
[2023-01-29 20:30] VITALS: BP 130/44; PULSE 62; RESP 16; TEMP 36.6; O2SAT 96
[2023-01-29] MEDS: Tamsulosin HCl 0.4 MG Capsule PO (21:57)
[2023-01-29] MEDS: Pantoprazole Sodium 40 MG Tablet PO (21:57)
[2023-01-29] MEDS: Atorvastatin Calcium 40 MG Tablet PO (21:57)
[2023-01-29 22:03] LABS: Bedside Glucose 216 mg/dL (74-106)
[2023-01-29] MEDS: MELATONIN 3 MG TABLET PO (22:48)
[2023-01-30] VITALS (14 sets, daily range): BP systolic 100–144; BP diastolic 49–85; PULSE 32–57; RESP 16; TEMP 36.2–36.6; O2SAT 92–100; BMI 29.9
[2023-01-30 04:56] LABS: Absolute Lymphocyte Count 1.74 X10^3/uL (0.83-4.51); Absolute Neutrophil Count 5.5 X10^3/uL (2.0-7.7); Basophil# 0.02 X10^3/uL; Basophil% 0.2 % (0-1); Eosinophil# 0.21 X10^3/uL; Eosinophils% 2.5 % (0-5); Hematocrit 22.1 % (40-54); Hemoglobin 6.9 g/dL (13.0-16.5); Lymphocyte # 1.74 X10^3/ul (0.83-4.51); Lymphocyte % 20.7 % (19-41); Mean Corp Hgb Conc 31.2 g/dL (32-36); Mean Corpuscular Volume 86.3 fL (80-94); Mean Platelet Vol. 9.4 fl (6.2-12.0); Monocyte# 0.59 X10^3/uL; NRBC Flagged by Analyzer 0 % (0-5); Neutrophil # 5.46 X10^3/uL (2.7-7.7); Neutrophil % 65.1 % (47-70); POSITIVE MORPHOLOGY YES; Platelet Count 282 K/mm3 (150-450); RBC Distribution Width CV 15.5 % (11.6-14.6); RBC Distribution Width SD 48.5 fl (35.1-43.9); RET-HE 22.8 pg (30-35); Red Blood Count 2.56 M/mm3 (4.6-6.2); Reticulocyte Count 3.53 % (0.5-1.5); White Blood Count 8.4 K/mm3 (4.4-11.0)
[2023-01-30 04:58] LABS: Differential Indicated SCAN CRITERIA MET
[2023-01-30 05:16] LABS: Vitamin B12 635 pg/mL (211-911)
[2023-01-30 05:25] LABS: Anion Gap 4 (5-15); BUN 19 mg/dL (7-18); BUN/Creat Ratio 14.7 RATIO (10-20); Calcium,Total 7.9 mg/dL (8.5-10.1); Chloride 113 mmol/L (98-107); Creatinine, Serum 1.29 mg/dL (0.70-1.30); EST Glomerular Filtration Rate 58 mL/min (>60); Est Glom Filt Rate - Afr Amer 70 mL/min (>60); Estimated Creatinine Clearance 55.92 ml/min; Ferritin 138 ng/mL (26-388); Glucose 188 mg/dL (74-106); Iron 28 ug/dL (65-175); Iron Binding Capacity,Total 166 ug/dL (250-450); LDH 148 U/L (87-241); PERCENT IRON SATURATION 16.9 % (15.0-55.0); Potassium 3.4 mmol/L (3.5-5.1); Sodium Level 142 mmol/L (136-145)
[2023-01-30] MEDS: Sucralfate 1 GM Tablet PO ×3 (06:04→17:05)
[2023-01-30 06:21] LABS: Atypical Lymphocyte RARE %; Differential Comment SCANNED; Hypochromasia 1+
[2023-01-30] MEDS: amLODIPine 2.5 MG Tablet PO (09:21)
[2023-01-30] MEDS: Ascorbic Acid 500 MG Tablet PO ×2 (09:21→21:22)
[2023-01-30] MEDS: Potassium Chloride Oral Soln 20 MEQ/15 ML UDC PO (09:25)
[2023-01-30] MEDS: DULoxetine Hcl 60 MG Capsule PO (09:25)
[2023-01-30] MEDS: Insulin Lispro 100 UNIT/ML INSULN.PEN SC ×3 (09:26→21:18)
[2023-01-30] MEDS: Insulin Glargine-YFGN 100 UNIT/ML Pen 15 UNIT SC (09:27)
--- NOTE | 2023-01-30 10:46 | PCM.PN.HOSP ---
Reason for Visit Reason for Visit: Diagnoses Other iron deficiency anemias (01/27/23) Acute posthemorrhagic anemia (01/27/23) Hemorrhagic disorder due to extrinsic circulating anticoagulants (01/27/23) Gastrointestinal hemorrhage, unspecified (01/27/23) Adverse effect of anticoagulants, initial encounter (01/27/23) Subjective Subjective Patient with hemoglobin downtrend overnight but no bright red blood per rectum, O2 sats maintained. Patient had formal swallow eval today Objective Data Objective Data Vital Signs: Vital Signs Temp Pulse Resp BP Pulse Ox O2 Del Method O2 Flow Rate 97.1 F L 44 L 16 120/85 H 95 Room Air 2 01/30/23 09:00 01/30/23 09:00 01/30/23 09:00 01/30/23 09:00 01/30/23 09:30 01/30/23 09:30 01/30/23 09:00 Oxygen Flow Rate (L/min) 2 Oxygen Delivery Method Room Air Weight: 102.9 kg Body Mass Index (BMI) 29.9 Intake & Output: Intake and Output for Last 24 Hours 01/28/23 01/29/23 01/30/23 23:59 23:59 23:59 Intake Total 4217.33 / 4217.33 501.50 / 501.50 100 / 100 Output Total 1000 / 1000 400 / 600 400 / 400 Balance 3217.33 / 3217.33 101.50 / -98.50 -300 / -300 Lab / Micro Data 01/30/23 04:45 01/30/23 04:45 Labs: Laboratory Results - last 24 hr 01/29/23 11:52: POC Glucose 193 H 01/29/23 12:07: Vancomycin Trough 7.8 01/29/23 16:17: POC Glucose 205 H 01/29/23 18:27: Crossmatch See Detail 01/29/23 21:45: POC Glucose 216 H 01/30/23 04:45: WBC 8.4, RBC 2.56 L, Hgb 6.9 L, Hct 22.1 L, MCV 86.3, MCH 27.0, MCHC 31.2 L, RDW Std Deviation 48.5 H, RDW Coeff of Nathaniel 15.5 H, Plt Count 282, MPV 9.4, Immature Gran % (Auto) 4.500 H, Neut % (Auto) 65.1, Lymph % (Auto) 20.7, [place] % (Auto) 7.0, Eos % (Auto) 2.5, Baso % (Auto) 0.2, Absolute Neuts (auto) 5.5, Absolute Lymphs (auto) 1.74, Nucleated RBC % 0, Differential Comment SCANNED, Atypical Lymphocytes RARE, Hypochromasia 1+, Retic Count 3.53 H, Immature Retic Fraction 40.30 H, Retic Hgb Equivalent 22.8 L, Sodium 142, Potassium 3.4 L, Chloride 113 H, Carbon Dioxide 25.0, Anion Gap 4 L, BUN 19 H, Creatinine 1.29, Estim Creat Clear Calc 55.92, Est GFR (MDRD) Af Amer 70, Est GFR (MDRD) Non-Af 58 L, BUN/Creatinine Ratio 14.7, Glucose 188 H, Calcium 7.9 L, Iron 28 L, TIBC 166 L, Iron Saturation 16.9, Ferritin 138, Lactate Dehydrogenase 148, Vitamin B12 635, Folate 4.60 Micro: Microbiology 01/28/23 13:39 Mucosa - Nose Respiratory Panel (PCR) - Final 01/27/23 23:00 Urine, Clean Catch Legionella Antigen - Final 01/27/23 23:00 Urine, Clean Catch Streptococcus pneumoniae Antigen (M - Final Radiography Diagnostic Testing: Radiology Impression Chest X-Ray 01/29/23 12:00 IMPRESSION: Patchy densities project over the left upper lung and right lower lung as well as in the left lower lung not as well seen on the prior study. Electronically Signed: Christ Correa, at 12:46 EDT , Physical Exam Narrative General: Alert, no apparent distress HEENT: Atraumatic, normocephalic Eyes: Anicteric, normal conjunctiva, extraocular movements grossly intact Neck: Supple Respiratory: Slight decreased at left base compared to right, normal respiratory effort Cardiovascular: Intermittently will be bradycardic and intermittently irregular rate GI: Soft, nontender, nondistended Extremities: No edema Musculoskeletal: Moving all extremities Neuro: No overt focal neurological deficits Skin: No rashes appreciated Psych: Cooperative Assessment & Plan Assessment/Plan (1) Upper gastrointestinal bleeding: PLAN: Plan #Recurrent GI bleed w/ recent ABLA secondary to upper GI bleed -Re-presented 01/27 with several episodes of bloody stools and positive occult stool at SNF prompting ED evaluation -Recent EGD 01/23/23 w/ single dysplastic lesion in the stomach treated with APC, gastritis, multiple oozing duodenal ulcers with adherent clot, multiple nonbleeding duodenal ulcers with no stigmata of bleeding -That admission pt required prbc, ppi, octreotide and was d/c'd on PPI BID, sucralfate and iron w/ coumadin held -D/c hgb 8.6, on presentation hgb 8.2 -Started on Protonix drip and given liter of IV fluids, sucralfate hemoglobin stable at present. Patient n.p.o. pending GI evaluation -GI consulted -CTA chest/abdomen/pelvis overall unremarkable from a GI perspective -01/29: No bright red blood per rectum or overt bleeding at this time, hemoglobin with slight downtrend but has been fairly stable. GI recommendations: PPI can be switched to Protonix 40 mg p.o. every 12 hours. He will need sucralfate 1 g p.o. 3 times a day for approximately 8 to 12 weeks. He can take the Protonix for 12 weeks. He will need repeat upper endoscopy in approximately 8 to 12 weeks to ensure healing. Was additionally recommended to check iron studies. Patient n.p.o. as below, will keep PPI IV until evaluated by speech therapy to assess safety of swallowing. Iron test, reticulocyte count, LDH as well as B12 and folate studies ordered to further evaluate anemia. GI following -01/30: Hemoglobin down trended to 6.9, no blood per rectum has been observed and patient does not report abdominal pain but he is a poor historian. Transfusing 1 unit packed red blood cells, also giving IV iron as his iron is on the low side. Does have increased retic count as well. LDH WNL. B12 wnl, folate LLN will add supplementation #Symptomatic bradycardia -His last hospitalization he had intermittent bradycardia and secondary degree AV block Mobitz type II, his donepezil and octreotide were stopped and ultimately was not felt he needed a pacemaker -Has been bradycardic here intermittently but had not been symptomatic, Namenda was discontinued to see if this would help however it did not and patient did have episode where he was symptomatic and dizzy and weak -Consult cardiology -Remain on telemetry #Dysphagia -Patient had episode where he seemed to be choking on his lunch, eventually was able to cough and swallow -Had been transiently hypoxic in the 80s but his O2 sat increased to 100% on 2 L after he was able to swallow -Unclear what extent may have been aspiration versus able to swallow food bolus -Chest x-ray with no collapse, patient maintaining O2 sat, does not need emergent bronchoscopy -N.p.o. pending speech eval -On evaluation after the incident patient resting comfortably with no wheezing and no respiratory distress and no respiratory complaints, continue to monitor -01/30: Patient for minced and moist, pending video swallow for further recommendations #Type 2 diabetes mellitus -Glucose checks and sliding scale insulin -Continue insulin glargine, may need to hold or adjust dose if patient remains n.p.o. #Left lower lobe airspace disease -Patchy posterior left lower lobe airspace disease with peribronchial thickening -Patient had not reported any symptoms and is afebrile however does have slight left shift and Pro-Dmitry of 0.12 which is nonspecific -Urine antigens negative, COVID-negative, respiratory panel pending -Sputum culture ordered but not collected -MRSA screen negative so we will discontinue vancomycin -Will likely de-escalate or DC Zosyn at 24 to 48 hours pending clinical progress and symptom evaluation -01/29: Chest x-ray obtained due to choking episode, not grossly different from previous, will keep antibiotics today and reevaluate tomorrow but may be able to de-escalate #CKD stage IIIa -Supportive care #Hx DVT/PE -Holding AC given recurrent GIB #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 -It was felt that the heart block was secondary to octreotide which had been DC'd, echo with EF 55 to 60% and normal LV systolic function with trivial MR and mild diffuse aortic calcification, plan was to forego pacemaker at the time -Continue to f/u cards outpt -01/29: Has intermittently had bradycardia, patient on memantine and well rare this can also cause bradycardia so we will hold this and assess for improvement, if not may need to revisit cardiology involvement -01/30: See above #Dementia -Unclear subtype, patient off of Aricept due to his heart block and has been continued on memantine -01/29: Has intermittently had bradycardia, patient on memantine and well rare this can also cause bradycardia so we will hold this #History of AAA -Status post repair 2006, holding aspirin as well as Coumadin given again recurrent bleeding status, recent alteration with hypertensive medications as noted with parent agents, continue statin #Anxiety and depression: We will continue patient home duloxetine regimen. #BPH: We will continue patient home Flomax regimen. #DVT ppx: SCDs Yisel Rendon MD Time spent in the patient's overall evaluation,decision-making process, review of diagnostic data, adjustment of management, discussion with other providers, nursing nursing and ancillary staff involved in patient's care documentation, 51 minutes Charges/Coding Visit Charges Inpatient E&M: 23082 [facility] Hosp L3
--- NOTE | 2023-01-30 10:56 | ST.MBS ---
Modified Barium Swallow Patient Information Study Date: 01/30/23 Study Time: 10:05 Direct Billable Minutes: 120 Total Minutes procedure & reportin Diagnosis: Gastrointestinal haemorrhage, unspecified (K92.2), HTN (I10) Referring Physician: Yisel Rendon Reason for Referral: Objectively assess swallow function, assess risk for aspiration, and determine recommendations for least restrictive diet textures and compensatory strategies to improve safety of swallow. Medical History: Mele Szymanski is a 77 y/o M w/ PMHx: CKD stage IIIa, AAA s/p repair, Hx COVID-19, Hx GI bleed, Valvular heart disease s/p AVR, HTN, HLD, VTE w/ Hx DVT/PE, Diabetes mellitus type II, Obesity, discharged on 01/26/23 following lengthy admission with 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, syncopal events secondary to hypotension with GI bleed and HB, ANTHONY on CKD stage IIIa who now re-presents to the [facility] ED on 01/27/23 with onset of several episodes of bloody stools with + occult stool check at facility prompting SNF to bring him back for re-evaluation. On day of presentation patient had somewhat of an appetite at his facility and did have oral intake as well as appropriate liquid intake which is more than he has been taking in since his discharge and at the the hospital. reports that earlier in the day he did look much better as opposed to currently in the ED ashen and very fatigued as well as ill-appearing. EGD w/ Dr. Hackett. Patient resting in bed had no complaints this a.m., was called midday and was reported patient choked on his lunch and initially desaturated however was able to clear his throat and swallow and O2 sat was 100% on 2 L. He was made n.p.o. and speech consulted. Patient evaluated after incident and denied any complaints, denied cough or shortness of breath. Patient evaluated by speech on 01/29/23 and was recommended Minced and Moist Textures, Thin Liquids, and recommended for future MBSS to assess presence/risk for aspiration. Current Diet Ordered: Mined and Moist Textures/ Thin Liquids Dentition: Natural Teeth Mental Status: Impaired Comment: Pt required mod verbal cues, followed unreliably. Respiratory Status: Oxygenating on Room Air Penetration-Aspiration Scale Penetration-Aspiration Scale: OBJECTIVE ASSESSMENT OF SWALLOW FUNCTION (QUANTITATIVE ? PER TRIAL): PENETRATION / ASPIRATION SCALE (HERNANDEZ): 1 = does not enter airway 2 = enters airway/above vocal folds/ejected 3 = enters airway/above vocal folds/not ejected 4 = enters airway/contacts vocal folds/ejected 5 = enters airway/contacts vocal folds/not ejected 6 = enters airway/below vocal folds/ejected 7 = enters airway/below vocal folds/not ejected despite effort 8 = enters airway/below vocal folds/no effort VIDEOFLOROSCOPIC SCALE SCORE (HERNANDEZ): Grade I = aspiration of material that has penetrated into the laryngeal vestibule, intact cough reflex Grade II = aspiration < 10 % of the bolus, intact cough reflex Grade III = aspiration of < 10 % of the bolus, reduced cough reflex or aspiration of > 10 % of the bolus, intact cough reflex Grade IV = aspiration of > 10 % of the bolus, reduced cough reflex Penetration-Aspiration Scale Score Thin Liquid via teaspoon: Result: 1= does not enter airway Thin Liquid via teaspoon Trial 2: Result: 1= does not enter airway Thin Liquid via Sequential Cup : Result: 3= enters airways/above vocal folds/not ejected Comment: PLAST[employer] ENGINEERING TEACHER cued for single cup sip Thin Liquid via Single Cup: Result: 4= enters airway/contacts vocal folds/ejected Comment: PLASTICS ENGINEERING TEACHER measured 10cc for single cup sip. PLAST[employer] ENGINEERING TEACHER cued cough and re-swallow. [place] Thick Liquid via Sequential Cup Sip: Result: 2= enter airway/above vocal folds/ejected Pudding via tsp w/esophageal screen: Result: 1= does not enter airway 1/2 Cookie w/esophageal screen : Result: 1= does not enter airway Thin Liquid via Sequential Straw Sips: Result: 5= enters airways/contacts vocal folds/not ejected Thin Liquid via teaspoon Trial 3: Result: 2= enter airway/above vocal folds/ejected Comment: PLAST[employer] ENGINEERING TEACHER cued cough and re-swallow Oral Phase Labial Seal: Escape beyond interlabial space; no extension beyond reshma border Tongue Control During Bolus Hold: Posterior escape of greater than half of bolus Bolus Preparation/Mastication: Slow prolonged chewing/mashing with complete recollection Bolus Transport/Lingual Motion: Slowed tongue motion Oral Residue: Trace residue lining oral structures Pharyngeal Phase Initiation of Pharyngeal Swallow: Bolus head in pyriforms Soft Palate Elevation: No bolus between soft palate and pharyngeal wall Laryngeal Elevation: Comp. Superior move thyroid cart w/comp. apprx arytenoid cart-epig pet Anterior Hyoid Excursion: Partial anterior movement Epiglottic Movement: Complete inversion Laryngeal Vestibule Closure at Height of Swallow: Incomplete; narrow column of air/contrast in laryngeal vestibule Pharyngoesophageal Segment Opening: Parital distension and partial duration; parital obstruction of flow Tongue Base Retraction: Wide column of contrast between tongue base & post. pharyngeal wall Pharyngeal Residue: Collection of residue within or on pharyngeal structures Esophageal Phase Esophageal Clearance: Esophageal retention Treatment Strategies Effects of treatment strategies attemped:: cough and re-swallow = somewhat effective reduced bolus size = somewhat effective Diagnosis/Impression Diagnosis: Mild-Moderate Oropharyngeal Dysphagia (R13.12) Impression: The oral phase is primarily marked by... -Decreased bolus control with >1/2 of the bolus spilling posteriorly to the pyriforms prior to swallow onset observed with thin liquids and large bolus sizes especially. -Prolonged but adequate mastication, with delayed tongue motion for A-P transport. -Trace oral residues, observed with large bolus sizes especially. The pharyngeal phase is primarily marked by... -Moderately decreased airway closure during the swallow due to partial anterior hyoid excursion, and delayed swallow onset. -Mildly decreased tongue base retraction, and mildly decreased UES opening/duration, with resulting mild pharyngeal residues after the swallow. -Laryngeal penetration of thin liquids by cup sip, and thin liquid by tsp X1, which reliably ejected. -Deep laryngeal penetration of thin liquids by large sequential cup sips and straw sips, which did not reliably eject. Patient was cued to cough and re-swallow, which was somewhat effective in decreasing laryngeal residue, placing patient at increased risk for aspiration. The esophageal phase is primarily marked by... -Esophageal retention of pudding and cookie trial in mid esophagus. Recommendations Diet: Mechanical Soft Textures and Thin Liquids Comment: Minced and Moist Textures Compensatory Strategies: Small Bites, No Straws, Liquid by Teaspoon Only, Slow Rate, Alternate bites/solids and sips/liquids, Sitting upright and Remain sitting upright for 30 minutes after PO intake Supervision: Assist as needed and 1:1 Close Supervision Recommend Repeat Modified Barium Swallow: Yes Need for Skilled Speech Therapy Services: Yes Comment: Will recommend the patient for dysphagia therapy to address deficits in oropharyngeal swallow function. Will recommend the patient for oropharyngeal strengthening to improve lingual coordination, tongue base retraction, hyoid excursion, and duration of UES opening (Gill, CTAR, Effortful Swallows, Lingual Resistance). The patient would benefit from thorough education regarding diet recommendations and recommended compensatory strategies. Would recommend patient for 10cc Prov[place] cup at next level of care to reduce bolus size. Would recommend patient for thin liquids by tsp sips at this time, with use of intermittent cough and re-swallow. Would recommend considering patient for advancement to Soft and Bite Size Textures at bedside, as deemed appropriate by PLASTICS ENGINEERING TEACHER. Patient not reliable to follow verbal commands for small bites/sips as seen during the study. Education Completed: 1. Described result of evaluation., 2. Pt understands evaluation & agrees with goals and treatment plan. and 7. Pt requires further education on strategies & risks. Status Active ST Patient: Active Contact Information [facility] Speech Therapy:: Esau Harper M.A. CF-[employer]AST[employer] ENGINEERING TEACHER Speech-Language Pathologist [facility] [address] [place] [address] [email or web address]
[2023-01-30] MEDS: Sodium Ferric Gluconat 250 MG in 0.9% Normal Saline 250 ML 135 MG IV (11:09)
[2023-01-30] MEDS: Ferrous Sulfate 300 MG/5 ML UDC PO (11:12)
--- NOTE | 2023-01-30 11:44 | CON.PCM.CA_ITS ---
Assessment & Plan Assessment/Plan (1) Sick sinus syndrome: PLAN: I believe the patient has underlying conduction system abnormalities. E kaiser though amlodipine may be exacerbating that, review of telemetry strips show episodes of high degree AV block with ventricular escape. In my opinion, patient may benefit from insertion of a permanent pacemaker. Will discuss with Dr. Chandra. (2) ABLA (acute blood loss anemia): PLAN: Manage as per GI. (3) HTN (hypertension): PLAN: Monitor. HPI Consult Data Date of Consult: 01/30/23 HPI Narrative Reason for Consultation: Symptomatic bradycardia HPI Narrative: The patient has been admitted with history of blood loss anemia. He was noted to have duodenal ulcerations. On his recent admission last week as well as on this admission, patient is noted to be bradycardic. Per the hospitalist service, patient became symptomatic with it this morning. Previously it is noted that he had type II Mobitz second-degree AV block. Patient himself denies any complaints of chest pain or shortness of breath. Denies any palpitations. Denies lightheadedness or dizziness. Denies syncope or presyncope. [facility] Medical History Amputation of right great toe Aortic aneurysm without rupture COVID-19 Diabetes Diabetic neuropathy HLD (hyperlipidemia) HTN (hypertension) Hyperkalemia Lactic acidosis Leukocytosis NSTEMI, initial episode of care Osteomyelitis Pulmonary emboli RBBB (right bundle 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) Second degree AV block, Mobitz type II Ulcer of right great toe due to diabetes mellitus Upper gastrointestinal bleed Ureterolithiasis Valvular heart disease Home Medications losartan 50 mg tablet 50 mg PO DAILY blood pressure 03/24/18 [History Last Taken 01/20/23] atorvastatin 40 mg tablet 40 mg PO QHS cholesterol 05/22/18 [History Last Taken 01/20/23] warfarin 5 mg tablet (Jantoven) 7.5 mg PO SUTUWETHFRSA anticoagulant 05/22/18 [History Last Taken 01/20/23] tamsulosin 0.4 mg capsule 0.4 mg PO QHS PROSTATE 03/02/22 [History Last Taken 01/20/23] warfarin 5 mg tablet 10 mg PO MO BLOOD THINNER 03/02/22 [History Last Taken 01/02/23] amlodipine 2.5 mg tablet 2.5 mg PO DAILY BP 30 days #30 tabs 07/11/22 [Rx Last Taken 01/20/23] acetaminophen 325 mg tablet 650 mg (2 x 325 mg) PO Q4H PRN PRN PAIN AND FEVER #0 tabs 01/08/23 [Rx Last Taken 01/19/23] melatonin 3 mg tablet 3 mg PO QHS PRN PRN Insomnia #1 TAB 01/08/23 [Rx Last Taken Unknown] cholecalciferol (vitamin D3) 1,250 mcg (50,000 unit) tablet 1,250 mcg PO MO SUPPLEMENT 01/21/23 [History Last Taken 01/14/23] duloxetine 60 mg capsule,delayed release (Cymbalta) 60 mg PO DAILY DEPRESSION 01/21/23 [History Last Taken 01/20/23] insulin lispro 100 unit/mL subcutaneous pen (Humalog KwikPen (U-100) Insulin) See Protocol subcut ACHS DM 01/21/23 [History Last Taken 01/21/23] metformin 1,000 mg tablet 1,000 mg PO BID DM 01/21/23 [History Last Taken 01/20/23] ascorbic acid (vitamin C) 500 mg tablet 500 mg PO BID #60 tabs 01/26/23 [Rx Last Taken Unknown] ferrous sulfate 325 mg (65 mg iron) tablet,delayed release 325 mg PO DAILY #30 tabs 01/26/23 [Rx Last Taken Unknown] insulin glargine 100 unit/mL (3 mL) subcutaneous pen (Lantus Solostar U-100 Insulin) 15 unit (0.15 mL) subcut DAILY diabetes #15 mL 01/26/23 [Rx Last Taken 01/20/23] memantine 10 mg tablet 10 mg PO QPM 30 days #30 tabs 01/26/23 [Rx Last Taken Unknown] pantoprazole 40 mg tablet,delayed release 40 mg PO BID 30 days #60 tabs 01/26/23 [Rx Last Taken Unknown] sennosides 8.6 mg-docusate sodium 50 mg tablet (Stool Softener-Stimulant Laxative) 2 tab PO BID PRN Constipation #0 tabs 01/26/23 [Rx Last Taken Unknown] sucralfate 1 gram tablet 1 g PO 0700,1100,1600 30 days #90 tabs 01/26/23 [Rx Last Taken Unknown] Allergy/AdvReac Type Severity Reaction Status Date / Time propofol AdvReac Other Verified 01/27/23 18:06 Family History Mother Heart disease Diabetes Hypertension Father Heart disease Surgical History H/O aortic valve repair History of foot surgery History of thoracic aortic aneurysm repair Hx of abdominal surgery Social History housing: [employer] current occupational status: retired Smoking Status: Never smoker alcohol intake: never substance use type: does not use Physical Exam Narrative Appears pale. No apparent distress. Heart rate bradycardic. Breathing unlabored. Alert oriented x3. Risk Stratification Risk Stratification Applicable: No Objective Data Vital Signs: Vital Signs Temp Pulse Resp BP Pulse Ox O2 Del Method O2 Flow Rate 97.1 F L 44 L 16 120/85 H 95 Room Air 2 01/30/23 09:00 01/30/23 09:00 01/30/23 09:00 01/30/23 09:00 01/30/23 09:30 01/30/23 09:30 01/30/23 09:00 Oxygen Flow Rate (L/min) 2 Oxygen Delivery Method Room Air Weight: 226 lb 13.69 oz Body Mass Index (BMI) 29.9 Intake & Output: Intake and Output for Last 24 Hours 01/28/23 01/29/23 01/30/23 23:59 23:59 23:59 Intake Total 4217.33 / 4217.33 501.50 / 501.50 100 / 100 Output Total 1000 / 1000 400 / 600 400 / 400 Balance 3217.33 / 3217.33 101.50 / -98.50 -300 / -300 Lab / Micro Data 01/30/23 04:45 01/30/23 04:45 Labs: Laboratory Results - last 24 hr 01/29/23 11:52: POC Glucose 193 H 01/29/23 12:07: Vancomycin Trough 7.8 01/29/23 16:17: POC Glucose 205 H 01/29/23 18:27: Crossmatch See Detail 01/29/23 21:45: POC Glucose 216 H 01/30/23 04:45: WBC 8.4, RBC 2.56 L, Hgb 6.9 L, Hct 22.1 L, MCV 86.3, MCH 27.0, MCHC 31.2 L, RDW Std Deviation 48.5 H, RDW Coeff of Nathaniel 15.5 H, Plt Count 282, M PV 9.4, Immature Gran % (Auto) 4.500 H, Neut % (Auto) 65.1, Lymph % (Auto) 20.7, [place] % (Auto) 7.0, Eos % (Auto) 2.5, Baso % (Auto) 0.2, Absolute Neuts (auto) 5.5, Absolute Lymphs (auto) 1.74, Nucleated RBC % 0, Differential Comment SCANNED, Atypical Lymphocytes RARE, Hypochromasia 1+, Retic Count 3.53 H, Immature Retic Fraction 40.30 H, Retic Hgb Equivalent 22.8 L, Sodium 142, Potassium 3.4 L, Chloride 113 H, Carbon Dioxide 25.0, Anion Gap 4 L, BUN 19 H, Creatinine 1.29, Estim Creat Clear Calc 55.92, Est GFR (MDRD) Af Amer 70, Est GFR (MDRD) Non-Af 58 L, BUN/Creatinine Ratio 14.7, Glucose 188 H, Calcium 7.9 L, Iron 28 L, TIBC 166 L, Iron Saturation 16.9, Ferritin 138, Lactate Dehydrogenase 148, Vitamin B12 635, Folate 4.60 Rhythm Strip Rhythm Strip: Sinus Tach Ectopy: PVC(s) Cardiology Labs/Tests 01/30/23 04:45: WBC 8.4, RBC 2.56 L, Hgb 6.9 L, Hct 22.1 L, MCV 86.3, MCH 27.0, MCHC 31.2 L, Plt Count 282, MPV 9.4, Immature Gran % (Auto) 4.500 H, Neut % (Auto) 65.1, Lymph % (Auto) 20.7, [place] % (Auto) 7.0, Eos % (Auto) 2.5, Baso % (Auto) 0.2, Absolute Neuts (auto) 5.5, Nucleated RBC % 0, Sodium 142, Potassium 3.4 L, Chloride 113 H, Carbon Dioxide 25.0, Anion Gap 4 L, BUN 19 H, Creatinine 1.29, Est GFR (MDRD) Af Amer 70, Est GFR (MDRD) Non-Af 58 L, BUN/Creatinine Ratio 14.7, Glucose 188 H, Calcium 7.9 L, Iron 28 L, TIBC 166 L, Iron Saturation 16.9, Ferritin 138 Rhythm: Sinus bradycardia. Review of telemetry strips show episodes of high degree AV block with ventricular escape. EKG: Sinus bradycardia. Right bundle branch block. Left anterior fascicular block. Bifascicular block. ECHO: Stress Test: Cardiac Cath: PCI: CT Surgery: Holter monitor: EPS: PPM: CXR: Chest CT Scan: Radiography Diagnostic Testing: Radiology Impression Chest X-Ray 01/29/23 12:00 IMPRESSION: Patchy densities project over the left upper lung and right lower lung as well as in the left lower lung not as well seen on the prior study. Electronically Signed: Christ Correa, at 12:46 EDT ,
[2023-01-30 11:48] LABS: Bedside Glucose 206 mg/dL (74-106)
--- NOTE | 2023-01-30 12:16 | CASEMGMT ---
VERO received a voice mail from Soco at [facility] ([facility]) checking on status of patient. VERO called Soco back and left her a voice mail letting her know patient was getting a modified barium swallow today. VERO also let Soco know physician said patient is now experiencing symptomatic bradycardia so Cardiology will need to see patient. Keily GOMEZ
[2023-01-30 15:48] LABS: Bedside Glucose 213 mg/dL (74-106)
--- NOTE | 2023-01-30 18:47 | PN.GI_ITS ---
Subjective Subjective Patient does not have any complaints. Objective Data Objective Data Vital Signs: Vital Signs Temp Pulse Resp BP Pulse Ox O2 Del Method O2 Flow Rate 97.2 F L 48 L 16 109/61 99 Room Air 2 01/30/23 17:10 01/30/23 17:10 01/30/23 17:10 01/30/23 17:10 01/30/23 17:10 01/30/23 17:10 01/30/23 09:00 Oxygen Flow Rate (L/min) 2 Oxygen Delivery Method Room Air Weight: 226 lb 13.69 oz Body Mass Index (BMI) 29.9 Intake & Output: Intake and Output for Last 24 Hours 01/28/23 01/29/23 01/30/23 23:59 23:59 23:59 Intake Total 4217.33 / 4217.33 501.50 / 501.50 1730 / 1730 Output Total 1000 / 1000 400 / 600 600 / 600 Balance 3217.33 / 3217.33 101.50 / -98.50 1130 / 1130 Lab / Micro Data 01/30/23 04:45 01/30/23 04:45 Labs: Laboratory Results - last 24 hr 01/29/23 18:27: Crossmatch See Detail 01/29/23 21:45: POC Glucose 216 H 01/30/23 04:45: WBC 8.4, RBC 2.56 L, Hgb 6.9 L, Hct 22.1 L, MCV 86.3, MCH 27.0, MCHC 31.2 L, RDW Std Deviation 48.5 H, RDW Coeff of Nathaniel 15.5 H, Plt Count 282, MPV 9.4, Immature Gran % (Auto) 4.500 H, Neut % (Auto) 65.1, Lymph % (Auto) 20.7, [place] % (Auto) 7.0, Eos % (Auto) 2.5, Baso % (Auto) 0.2, Absolute Neuts (auto) 5.5, Absolute Lymphs (auto) 1.74, Nucleated RBC % 0, Differential Comment SCANNED, Atypical Lymphocytes RARE, Hypochromasia 1+, Retic Count 3.53 H, Immature Retic Fraction 40.30 H, Retic Hgb Equivalent 22.8 L, Sodium 142, Potassium 3.4 L, Chloride 113 H, Carbon Dioxide 25.0, Anion Gap 4 L, BUN 19 H, Creatinine 1.29, Estim Creat Clear Calc 55.92, Est GFR (MDRD) Af Amer 70, Est GFR (MDRD) Non-Af 58 L, BUN/Creatinine Ratio 14.7, Glucose 188 H, Calcium 7.9 L, Iron 28 L, TIBC 166 L, Iron Saturation 16.9, Ferritin 138, Lactate Dehydrogenase 148, Vitamin B12 635, Folate 4.60 01/30/23 09:24: POC Glucose 206 H 01/30/23 15:21: POC Glucose 213 H Micro: Microbiology 01/28/23 13:39 Mucosa - Nose Respiratory Panel (PCR) - Final 01/27/23 23:00 Urine, Clean Catch Legionella Antigen - Final 01/27/23 23:00 Urine, Clean Catch Streptococcus pneumoniae Antigen (M - Final Rhythm Strip Rhythm Strip: Sinus Tach Ectopy: PVC(s) Physical Exam Narrative Appears pale. No apparent distress. Heart rate bradycardic. Breathing unlabored. Alert oriented x3. Assessment & Plan Assessment/Plan (1) Anemia: QUALIFIERS: Anemia type: iron deficiency Iron deficiency anemia type: other iron deficiency Qualified Code(s): D50.8 - Other iron deficiency anemias (2) Warfarin-induced coagulopathy: (3) ABLA (acute blood loss anemia): PLAN: Plan 77-year-old with past medical history of PE, DVT presents with worsening shortness of breath and fatigue and discovered to have a significant anemia. Stools were checked for blood and neuro positive. He underwent an upper endoscopy after his INR was corrected and was discovered to have severe ulcerations of his duodenum. Biopsies were taken in the stomach for H. pylori and biopsies also were taken. Ulcerations were treated endoscopically. His hemoglobin seems to be stable. Recommendation: PPI can be switched to Protonix 40 mg p.o. every 12 hours. He will need sulcralfate 1 g p.o. 3 times a day for approximately 8 to 12 weeks. He can take the Protonix for 12 weeks. He will need repeat upper endoscopy in approximately 8 to 12 weeks to ensure healing. 01/29: Patient had a slight trend down from 9-8.1 and his hemoglobin I would recommend to check his iron studies to see if he would benefit from IV iron. I suspect there are some components of anemia chronic disease therefore we will not transfuse it without checking his iron, ferritin, transferrin, reticulocyte count and LDH. He may benefit from Epogen if he is not iron deficient. 01/30: Patient's hemoglobin continued to drop down to 6.8. He underwent a swallowing study today. He has been evaluated by cardiology. He may need repeat upper endoscopy and if that is normal he may need a colonoscopy. Transfused 2 units of packed red blood cells. I would also give IV iron x2. Charges/Coding Visit Charges Inpatient E&M: 24204 Subs Hosp L3
[2023-01-30] MEDS: Atorvastatin Calcium 40 MG Tablet PO (21:22)
[2023-01-30] MEDS: Tamsulosin HCl 0.4 MG Capsule PO (21:22)
[2023-01-30 22:23] LABS: Bedside Glucose 206 mg/dL (74-106)
[2023-01-30] MEDS: Acetaminophen 325 MG Tablet 650 MG PO (22:27)
[2023-01-31] MEDS: Albuterol 2.5 MG/3 ML VIAL.NEB. INHALATION (00:16)
[2023-01-31 00:20] VITALS: PULSE 40; RESP 18
--- NOTE | 2023-01-31 00:38 | CPS ---
Attempted sputum induction with unit dose albuterol. Pt has a dry cough, non productive. no sputum obtained.
[2023-01-31 02:26] VITALS: BMI 29.9
[2023-01-31 03:58] LABS: Bedside Glucose 147 mg/dL (74-106)
[2023-01-31 05:31] VITALS: BMI 29.9
[2023-01-31 06:22] LABS: Hemoglobin 7.6 g/dL (13.0-16.5); Mean Corp Hgb Conc 31.7 g/dL (32-36); Mean Corpuscular Hgb 27.3 pg (27.0-32.0); Mean Corpuscular Volume 86.3 fL (80-94); Mean Platelet Vol. 9.4 fl (6.2-12.0); POSITIVE COUNT YES; POSITIVE MORPHOLOGY YES; Platelet Count 320 K/mm3 (150-450); RBC Distribution Width CV 15.6 % (11.6-14.6); RBC Distribution Width SD 48.7 fl (35.1-43.9); Red Blood Count 2.78 M/mm3 (4.6-6.2); White Blood Count 8.6 K/mm3 (4.4-11.0)
[2023-01-31] MEDS: Sucralfate 1 GM Tablet PO ×3 (06:30→16:56)
[2023-01-31 06:32] LABS: Differential Indicated MANUAL DIFF
[2023-01-31 06:49] LABS: Anion Gap 6 (5-15); BUN 12 mg/dL (7-18); BUN/Creat Ratio 12.2 RATIO (10-20); Calcium,Total 8.1 mg/dL (8.5-10.1); Chloride 112 mmol/L (98-107); Creatinine, Serum 0.99 mg/dL (0.70-1.30); EST Glomerular Filtration Rate 79 mL/min (>60); Est Glom Filt Rate - Afr Amer 95 mL/min (>60); Estimated Creatinine Clearance 72.86 ml/min; Glucose 164 mg/dL (74-106); Potassium 3.3 mmol/L (3.5-5.1); Sodium Level 141 mmol/L (136-145)
[2023-01-31 07:02] LABS: Total Cells Counted 100 (MANUAL DIFF)
[2023-01-31 07:03] LABS: Eosinophil 2 % (0-5); Lymphocyte 22 % (19-41); Metamyelocyte 1 % (0-1); Monocyte 5 % (0-10); Myelocyte 3 % (0-0); Neutrophil-Band 3 % (0-5); Neutrophil-Segmented 64 % (47-70); Platelet Estimate ADEQUATE (ADEQ)
[2023-01-31 07:04] LABS: Absolute Lymphocyte Count 1.89 X10^3/uL (0.83-4.51); Absolute Neutrophil Count 5.8 X10^3/uL (2.0-7.7); Lymphocyte # 1.89 X10^3/ul (0.83-4.51); Neutrophil # 5.75 X10^3/uL (2.7-7.7); Polychromasia RARE
[2023-01-31 07:35] VITALS: O2SAT 98
[2023-01-31 07:56] VITALS: BP 116/56; PULSE 41; RESP 18; TEMP 36.4; O2SAT 98
--- NOTE | 2023-01-31 08:20 | PCM.PN.HOSP ---
Reason for Visit Reason for Visit: Diagnoses Other iron deficiency anemias (01/27/23) Acute posthemorrhagic anemia (01/27/23) Hemorrhagic disorder due to extrinsic circulating anticoagulants (01/27/23) Essential (primary) hypertension (01/27/23) Sick sinus syndrome (01/27/23) Gastrointestinal hemorrhage, unspecified (01/27/23) Adverse effect of anticoagulants, initial encounter (01/27/23) Subjective Subjective Patient resting in bed with no complaints at this time Objective Data Objective Data Vital Signs: Vital Signs Temp Pulse Resp BP Pulse Ox O2 Del Method O2 Flow Rate 97.5 F L 41 L 18 116/56 L 98 Room Air 2 01/31/23 07:56 01/31/23 07:56 01/31/23 07:56 01/31/23 07:56 01/31/23 07:56 01/31/23 08:13 01/30/23 23:10 Oxygen Flow Rate (L/min) 2 Oxygen Delivery Method Room Air Weight: 103.1 kg Body Mass Index (BMI) 29.9 Intake & Output: Intake and Output for Last 24 Hours 01/29/23 01/30/23 01/31/23 23:59 23:59 23:59 Intake Total 501.50 / 501.50 1730 / 1730 160 / 160 Output Total 400 / 600 600 / 600 200 / 200 Balance 101.50 / -98.50 1130 / 1130 -40 / -40 Lab / Micro Data 01/31/23 05:48 01/31/23 05:48 Labs: Laboratory Results - last 24 hr 01/29/23 18:27: Crossmatch See Detail 01/30/23 09:24: POC Glucose 206 H 01/30/23 15:21: POC Glucose 213 H 01/30/23 21:15: POC Glucose 206 H 01/31/23 03:41: POC Glucose 147 H 01/31/23 05:48: WBC 8.6, RBC 2.78 L, Hgb 7.6 L, Hct 24.0 L, MCV 86.3, MCH 27.3, MCHC 31.7 L, RDW Std Deviation 48.7 H, RDW Coeff of Ntahaniel 15.6 H, Plt Count 320, MPV 9.4, Neut % (Auto) Not Reportable, Absolute Neuts (auto) 5.8, Absolute Lymphs (auto) 1.89, Total Counted 100, Neutrophils % (Manual) 64, Band Neutrophils % 3, Lymphocytes % (Manual) 22, Monocytes % (Manual) 5, Eosinophils % (Manual) 2, Metamyelocytes % 1, Myelocytes % 3 H, Diff Path Review May foll, Platelet Estimate ADEQUATE, Polychromasia RARE, Sodium 141, Potassium 3.3 L, Chloride 112 H, Carbon Dioxide 23.0, Anion Gap 6, BUN 12, Creatinine 0.99, Estim Creat Clear Calc 72.86, Est GFR (MDRD) Af Amer 95, Est GFR (MDRD) Non-Af 79, BUN/Creatinine Ratio 12.2, Glucose 164 H, Calcium 8.1 L Micro: Microbiology 01/28/23 13:39 Mucosa - Nose Respiratory Panel (PCR) - Final 01/27/23 23:00 Urine, Clean Catch Legionella Antigen - Final 01/27/23 23:00 Urine, Clean Catch Streptococcus pneumoniae Antigen (M - Final Rhythm Strip Rhythm Strip: Sinus Tach Ectopy: PVC(s) Physical Exam Narrative General: Alert, no apparent distress HEENT: Atraumatic, normocephalic Eyes: Anicteric, normal conjunctiva, extraocular movements grossly intact Neck: Supple Respiratory: Normal respiratory effort Cardiovascular: Intermittently will be bradycardic and intermittently irregular rate GI: Soft, nontender, nondistended Extremities: No edema Musculoskeletal: Moving all extremities Neuro: No overt focal neurological deficits Skin: No rashes appreciated Psych: Cooperative Assessment & Plan Assessment/Plan (1) Upper gastrointestinal bleeding: PLAN: Plan #Recurrent GI bleed w/ recent ABLA secondary to upper GI bleed -Re-presented 01/27 with several episodes of bloody stools and positive occult stool at [facility] prompting ED evaluation -Recent EGD 01/23/23 w/ single dysplastic lesion in the stomach treated with APC, gastritis, multiple oozing duodenal ulcers with adherent clot, multiple nonbleeding duodenal ulcers with no stigmata of bleeding -That admission pt required prbc, ppi, octreotide and was d/c'd on PPI BID, sucralfate and iron w/ coumadin held -D/c hgb 8.6, on presentation hgb 8.2 -Started on Protonix drip and given liter of IV fluids, sucralfate hemoglobin stable at present. Patient n.p.o. pending GI evaluation -GI consulted -CTA chest/abdomen/pelvis overall unremarkable from a GI perspective -01/29: No bright red blood per rectum or overt bleeding at this time, hemoglobin with slight downtrend but has been fairly stable. GI recommendations: PPI can be switched to Protonix 40 mg p.o. every 12 hours. He will need sucralfate 1 g p.o. 3 times a day for approximately 8 to 12 weeks. He can take the Protonix for 12 weeks. He will need repeat upper endoscopy in approximately 8 to 12 weeks to ensure healing. Was additionally recommended to check iron studies. Patient n.p.o. as below, will keep PPI IV until evaluated by speech therapy to assess safety of swallowing. Iron test, reticulocyte count, LDH as well as B12 and folate studies ordered to further evaluate anemia. GI following -01/30: Hemoglobin down trended to 6.9, no blood per rectum has been observed and patient does not report abdominal pain but he is a poor historian. Transfusing 1 unit packed red blood cells, also giving IV iron as his iron is on the low side. Does have increased retic count as well. LDH WNL. B12 wnl, folate LLN will add supplementation -01/31: Patient received packed red blood cells and IV iron, hemoglobin 7.6 today. Will give second dose of IV iron per GI recommendations. May need repeat scope #Symptomatic bradycardia -His last hospitalization he had intermittent bradycardia and secondary degree AV block Mobitz type II, his donepezil and octreotide were stopped and ultimately was not felt he needed a pacemaker -Has been bradycardic here intermittently but had not been symptomatic, Namenda was discontinued to see if this would help however it did not and patient did have episode where he was symptomatic and dizzy and weak -Consult cardiology -Remain on telemetry -01/31: Cardiology evaluated, seems to have episodes of high degree AV block with ventricular escape. May need permanent pacemaker placement #Dysphagia -Patient had episode where he seemed to be choking on his lunch, eventually was able to cough and swallow -Had been transiently hypoxic in the 80s but his O2 sat increased to 100% on 2 L after he was able to swallow -Unclear what extent may have been aspiration versus able to swallow food bolus -Chest x-ray with no collapse, patient maintaining O2 sat, does not need emergent bronchoscopy -N.p.o. pending speech eval -On evaluation after the incident patient resting comfortably with no wheezing and no respiratory distress and no respiratory complaints, continue to monitor -01/30: Patient for minced and moist, pending video swallow for further recommendations -01/31: We will need dysphagia therapy #Type 2 diabetes mellitus -Glucose checks and sliding scale insulin -Continue insulin glargine, may need to hold or adjust dose if patient remains n.p.o. -01/31: Glucose under tighter control the necessary in acute setting, decrease glargine slightly #Left lower lobe airspace disease -Patchy posterior left lower lobe airspace disease with peribronchial thickening -Patient had not reported any symptoms and is afebrile however does have slight left shift and Pro-Dmitry of 0.12 which is nonspecific -Urine antigens negative, COVID-negative, respiratory panel pending -Sputum culture ordered but not collected -MRSA screen negative so we will discontinue vancomycin -Will likely de-escalate or DC Zosyn at 24 to 48 hours pending clinical progress and symptom evaluation -01/29: Chest x-ray obtained due to choking episode, not grossly different from previous, will keep antibiotics today and reevaluate tomorrow but may be able to de-escalate -01/31: Will treat for 5 days for course for CAP #CKD stage IIIa -Supportive care #Hx DVT/PE -Holding AC given recurrent GIB #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 -It was felt that the heart block was secondary to octreotide which had been DC'd, echo with EF 55 to 60% and normal LV systolic function with trivial MR and mild diffuse aortic calcification, plan was to forego pacemaker at the time -Continue to f/u cards outpt -01/29: Has intermittently had bradycardia, patient on memantine and well rare this can also cause bradycardia so we will hold this and assess for improvement, if not may need to revisit cardiology involvement -01/30: See above #Dementia -Unclear subtype, patient off of Aricept due to his heart block and has been continued on memantine -01/29: Has intermittently had bradycardia, patient on memantine and well rare this can also cause bradycardia so we will hold this #History of AAA -Status post repair 2006, holding aspirin as well as Coumadin given again recurrent bleeding status, recent alteration with hypertensive medications as noted with parent agents, continue statin #Anxiety and depression: We will continue patient home duloxetine regimen. #BPH: We will continue patient home Flomax regimen. #DVT ppx: SCDs Yisel Rendon MD Time spent in the patient's overall evaluation,decision-making process, review of diagnostic data, adjustment of management, discussion with other providers, nursing nursing and ancillary staff involved in patient's care documentation, 52 minutes Charges/Coding Visit Charges Inpatient E&M: 48641 [facility] Hosp L3
[2023-01-31] MEDS: amLODIPine 2.5 MG Tablet PO (08:41)
[2023-01-31] MEDS: 0.9% Saline Lock 10 ML Syringe IV ×3 (09:18→15:00)
[2023-01-31] MEDS: Ascorbic Acid 500 MG Tablet PO ×2 (11:49→21:44)
[2023-01-31] MEDS: Folic Acid 1 MG Tablet PO (11:50)
[2023-01-31] MEDS: DULoxetine Hcl 60 MG Capsule PO (11:50)
[2023-01-31] MEDS: Insulin Glargine-YFGN 100 UNIT/ML Pen 12 UNIT SC (11:50)
[2023-01-31] MEDS: Ferrous Sulfate 300 MG/5 ML UDC PO (11:50)
[2023-01-31 12:16] LABS: Bedside Glucose 140 mg/dL (74-106)
[2023-01-31 12:28] VITALS: BP 155/50; PULSE 49; RESP 18; TEMP 36.6; O2SAT 98
[2023-01-31 17:00] LABS: Bedside Glucose 148 mg/dL (74-106)
--- NOTE | 2023-01-31 17:15 | EX.PCM.PN.GI ---
Subjective Subjective Patient underwent a colonoscopy yesterday and had 4 polyps removed without any bleeding stigmata. He was supposed to have an upper scope today but he ate around 10:00 this morning. Objective Data Objective Data Vital Signs: Vital Signs Temp Pulse Resp BP Pulse Ox O2 Del Method O2 Flow Rate 98 F 49 L 18 155/50 H 98 Room Air 2 01/31/23 12:28 01/31/23 12:28 01/31/23 12:28 01/31/23 12:28 01/31/23 12:28 01/31/23 14:30 01/31/23 12:28 Oxygen Flow Rate (L/min) 2 Oxygen Delivery Method Room Air Weight: 227 lb 4.745 oz Body Mass Index (BMI) 29.9 Intake & Output: Intake and Output for Last 24 Hours 01/29/23 01/30/23 01/31/23 23:59 23:59 23:59 Intake Total 501.50 / 501.50 1730 / 1730 740 / 740 Output Total 400 / 600 600 / 600 275 / 275 Balance 101.50 / -98.50 1130 / 1130 465 / 465 Lab / Micro Data 01/31/23 05:48 01/31/23 05:48 Labs: Laboratory Results - last 24 hr 01/29/23 18:27: Crossmatch See Detail 01/30/23 21:15: POC Glucose 206 H 01/31/23 03:41: POC Glucose 147 H 01/31/23 05:48: WBC 8.6, RBC 2.78 L, Hgb 7.6 L, Hct 24.0 L, MCV 86.3, MCH 27.3, MCHC 31.7 L, RDW Std Deviation 48.7 H, RDW Coeff of Nathaniel 15.6 H, Plt Count 320, MPV 9.4, Neut % (Auto) Not Reportable, Absolute Neuts (auto) 5.8, Absolute Lymphs (auto) 1.89, Total Counted 100, Neutrophils % (Manual) 64, Band Neutrophils % 3, Lymphocytes % (Manual) 22, Monocytes % (Manual) 5, Eosinophils % (Manual) 2, Metamyelocytes % 1, Myelocytes % 3 H, Diff Path Review November, Platelet Estimate ADEQUATE, Polychromasia RARE, Sodium 141, Potassium 3.3 L, Chloride 112 H, Carbon Dioxide 23.0, Anion Gap 6, BUN 12, Creatinine 0.99, Estim Creat Clear Calc 72.86, Est GFR (MDRD) Af Amer 95, Est GFR (MDRD) Non-Af 79, BUN/Creatinine Ratio 12.2, Glucose 164 H, Calcium 8.1 L 01/31/23 11:47: POC Glucose 140 H 01/31/23 16:42: POC Glucose 148 H Micro: Microbiology 01/28/23 13:39 Mucosa - Nose Respiratory Panel (PCR) - Final 01/27/23 23:00 Urine, Clean Catch Legionella Antigen - Final 01/27/23 23:00 Urine, Clean Catch Streptococcus pneumoniae Antigen (M - Final Rhythm Strip Rhythm Strip: Sinus Tach Ectopy: PVC(s) Physical Exam Narrative General: Alert, no apparent distress HEENT: Atraumatic, normocephalic Eyes: Anicteric, normal conjunctiva, extraocular movements grossly intact Neck: Supple Respiratory: Normal respiratory effort Cardiovascular: Intermittently will be bradycardic and intermittently irregular rate GI: Soft, nontender, nondistended Extremities: No edema Musculoskeletal: Moving all extremities Neuro: No overt focal neurological deficits Skin: No rashes appreciated Psych: Cooperative Assessment & Plan Assessment/Plan (1) Anemia: QUALIFIERS: Anemia type: iron deficiency Iron deficiency anemia type: other iron deficiency Qualified Code(s): D50.8 - Other iron deficiency anemias (2) Warfarin-induced coagulopathy: (3) ABLA (acute blood loss anemia): PLAN: Plan 77-year-old with past medical history of PE, DVT presents with worsening shortness of breath and fatigue and discovered to have a significant anemia. Stools were checked for blood and neuro positive. He underwent an upper endoscopy after his INR was corrected and was discovered to have severe ulcerations of his duodenum. Biopsies were taken in the stomach for H. pylori and biopsies also were taken. Ulcerations were treated endoscopically. His hemoglobin seems to be stable. Recommendation: PPI can be switched to Protonix 40 mg p.o. every 12 hours. He will need sulcralfate 1 g p.o. 3 times a day for approximately 8 to 12 weeks. He can take the Protonix for 12 weeks. He will need repeat upper endoscopy in approximately 8 to 12 weeks to ensure healing. 01/29: Patient had a slight trend down from 9-8.1 and his hemoglobin I would recommend to check his iron studies to see if he would benefit from IV iron. I suspect there are some components of anemia chronic disease therefore we will not transfuse it without checking his iron, ferritin, transferrin, reticulocyte count and LDH. He may benefit from Epogen if he is not iron deficient. 01/30: Patient's hemoglobin continued to drop down to 6.8. He underwent a swallowing study today. He has been evaluated by cardiology. He may need repeat upper endoscopy and if that is normal he may need a colonoscopy. Transfused 2 units of packed red blood cells. I would also give IV iron x2. 01/31: N.p.o. past midnight for EGD tomorrow morning. Charges/Coding Visit Charges Inpatient E&M: 18573 Subs Hosp L3
[2023-01-31 18:00] VITALS: BP 129/47; PULSE 42; RESP 16; TEMP 36.3; O2SAT 97
[2023-01-31 19:45] VITALS: BP 142/44; PULSE 45; RESP 16; TEMP 36.1; O2SAT 90
[2023-01-31] MEDS: Atorvastatin Calcium 40 MG Tablet PO (21:44)
[2023-01-31] MEDS: Tamsulosin HCl 0.4 MG Capsule PO (21:44)
[2023-01-31] MEDS: Insulin Lispro 100 UNIT/ML INSULN.PEN SC (21:45)
[2023-01-31 22:07] LABS: Bedside Glucose 177 mg/dL (74-106)
[2023-02-01] VITALS (10 sets, daily range): BP systolic 100–139; BP diastolic 44–56; PULSE 36–57; RESP 14–18; TEMP 35.7–36.9; O2SAT 94–97; BMI 29.9
[2023-02-01 05:41] LABS: Bedside Glucose 146 mg/dL (74-106)
[2023-02-01 06:36] LABS: Absolute Lymphocyte Count 1.75 X10^3/uL (0.83-4.51); Absolute Neutrophil Count 6.4 X10^3/uL (2.0-7.7); Basophil# 0.02 X10^3/uL; Basophil% 0.2 % (0-1); Eosinophils% 2.2 % (0-5); Hematocrit 24.8 % (40-54); Hemoglobin 7.9 g/dL (13.0-16.5); Lymphocyte # 1.75 X10^3/ul (0.83-4.51); Mean Corp Hgb Conc 31.9 g/dL (32-36); Mean Corpuscular Hgb 27.2 pg (27.0-32.0); Mean Corpuscular Volume 85.5 fL (80-94); Mean Platelet Vol. 9.3 fl (6.2-12.0); Monocyte# 0.49 X10^3/uL; Monocyte% 5.3 % (0-10); NRBC Flagged by Analyzer 0.2 % (0-5); Neutrophil # 6.43 X10^3/uL (2.7-7.7); Neutrophil % 69.8 % (47-70); Platelet Count 334 K/mm3 (150-450); RBC Distribution Width CV 16.3 % (11.6-14.6); RBC Distribution Width SD 48.4 fl (35.1-43.9); White Blood Count 9.2 K/mm3 (4.4-11.0)
[2023-02-01 06:50] LABS: Anion Gap 4 (5-15); BUN 10 mg/dL (7-18); BUN/Creat Ratio 10.5 RATIO (10-20); Chloride 114 mmol/L (98-107); Creatinine, Serum 0.96 mg/dL (0.70-1.30); EST Glomerular Filtration Rate 82 mL/min (>60); Est Glom Filt Rate - Afr Amer 99 mL/min (>60); Estimated Creatinine Clearance 75.14 ml/min; Glucose 147 mg/dL (74-106); Potassium 3.4 mmol/L (3.5-5.1); Sodium Level 143 mmol/L (136-145)
--- NOTE | 2023-02-01 08:14 | PCM.PN.HOSP ---
Reason for Visit Reason for Visit: Diagnoses Other iron deficiency anemias (01/27/23) Acute posthemorrhagic anemia (01/27/23) Hemorrhagic disorder due to extrinsic circulating anticoagulants (01/27/23) Essential (primary) hypertension (01/27/23) Sick sinus syndrome (01/27/23) Gastrointestinal hemorrhage, unspecified (01/27/23) Adverse effect of anticoagulants, initial encounter (01/27/23) Subjective Subjective Patient no complaints, no abdominal pain, no chest pain or shortness of breath, no further dizziness Objective Data Objective Data Vital Signs: Vital Signs Temp Pulse Resp BP Pulse Ox O2 Del Method O2 Flow Rate 96.3 F L 43 L 18 132/53 H 97 Room Air 2 02/01/23 06:22 02/01/23 06:22 02/01/23 06:22 02/01/23 06:22 02/01/23 06:22 02/01/23 06:22 02/01/23 00:17 Oxygen Flow Rate (L/min) 2 Oxygen Delivery Method Room Air Weight: 103.2 kg Body Mass Index (BMI) 29.9 Intake & Output: Intake and Output for Last 24 Hours 01/30/23 01/31/23 02/01/23 23:59 23:59 23:59 Intake Total 1730 / 1730 810 / 810 160 / 160 Output Total 600 / 600 300 / 700 500 / 500 Balance 1130 / 1130 510 / 110 -340 / -340 Lab / Micro Data 02/01/23 06:14 02/01/23 06:14 Labs: Laboratory Results - last 24 hr 01/31/23 11:47: POC Glucose 140 H 01/31/23 16:42: POC Glucose 148 H 01/31/23 21:41: POC Glucose 177 H 02/01/23 04:02: POC Glucose 146 H 02/01/23 06:14: WBC 9.2, RBC 2.90 L, Hgb 7.9 L, Hct 24.8 L, MCV 85.5, MCH 27.2, MCHC 31.9 L, RDW Std Deviation 48.4 H, RDW Coeff of Nathaniel 16.3 H, Plt Count 334, MPV 9.3, Immature Gran % (Auto) 3.500 H, Neut % (Auto) 69.8, Lymph % (Auto) 19.0, Dodge % (Auto) 5.3, Eos % (Auto) 2.2, Baso % (Auto) 0.2, Absolute Neuts (auto) 6.4, Absolute Lymphs (auto) 1.75, Nucleated RBC % 0.2, Sodium 143, Potassium 3.4 L, Chloride 114 H, Carbon Dioxide 25.0, Anion Gap 4 L, BUN 10, Creatinine 0.96, Estim Creat Clear Calc 75.14, Est GFR (MDRD) Af Amer 99, Est GFR (MDRD) Non-Af 82, BUN/Creatinine Ratio 10.5, Glucose 147 H, Calcium 8.0 L Micro: Microbiology 01/28/23 13:39 Mucosa - Nose Respiratory Panel (PCR) - Final 01/27/23 23:00 Urine, Clean Catch Legionella Antigen - Final 01/27/23 23:00 Urine, Clean Catch Streptococcus pneumoniae Antigen (M - Final Rhythm Strip Rhythm Strip: Sinus Tach Ectopy: PVC(s) Physical Exam Narrative General: Alert, no apparent distress HEENT: Atraumatic, normocephalic Eyes: Anicteric, normal conjunctiva, extraocular movements grossly intact Neck: Supple Respiratory: Normal respiratory effort Cardiovascular: Intermittently will be bradycardic and intermittently irregular rate GI: Soft, nontender, nondistended Extremities: No edema Musculoskeletal: Moving all extremities Neuro: No overt focal neurological deficits Skin: No rashes appreciated Psych: Cooperative Assessment & Plan Assessment/Plan (1) Upper gastrointestinal bleeding: PLAN: Plan #Recurrent GI bleed w/ recent ABLA secondary to upper GI bleed -Re-presented 01/27 with several episodes of bloody stools and positive occult stool at [facility] prompting ED evaluation -Recent EGD 01/23/23 w/ single dysplastic lesion in the stomach treated with APC, gastritis, multiple oozing duodenal ulcers with adherent clot, multiple nonbleeding duodenal ulcers with no stigmata of bleeding -That admission pt required prbc, ppi, octreotide and was d/c'd on PPI BID, sucralfate and iron w/ coumadin held -D/c hgb 8.6, on presentation hgb 8.2 -Started on Protonix drip and given liter of IV fluids, sucralfate hemoglobin stable at present. Patient n.p.o. pending GI evaluation -GI consulted -CTA chest/abdomen/pelvis overall unremarkable from a GI perspective -7/18: No bright red blood per rectum or overt bleeding at this time, hemoglobin with slight downtrend but has been fairly stable. GI recommendations: PPI can be switched to Protonix 40 mg p.o. every 12 hours. He will need sucralfate 1 g p.o. 3 times a day for approximately 8 to 12 weeks. He can take the Protonix for 12 weeks. He will need repeat upper endoscopy in approximately 8 to 12 weeks to ensure healing. Was additionally recommended to check iron studies. Patient n.p.o. as below, will keep PPI IV until evaluated by speech therapy to assess safety of swallowing. Iron test, reticulocyte count, LDH as well as B12 and folate studies ordered to further evaluate anemia. GI following -01/30: Hemoglobin down trended to 6.9, no blood per rectum has been observed and patient does not report abdominal pain but he is a poor historian. Transfusing 1 unit packed red blood cells, also giving IV iron as his iron is on the low side. Does have increased retic count as well. LDH WNL. B12 wnl, folate LLN will add supplementation -01/31: Patient received packed red blood cells and IV iron, hemoglobin 7.6 today. Will give second dose of IV iron per GI recommendations. May need repeat scope -02/01: Repeat upper endoscopy today #Symptomatic bradycardia -His last hospitalization he had intermittent bradycardia and secondary degree AV block Mobitz type II, his donepezil and octreotide were stopped and ultimately was not felt he needed a pacemaker -Has been bradycardic here intermittently but had not been symptomatic, Namenda was discontinued to see if this would help however it did not and patient did have episode where he was symptomatic and dizzy and weak -Consult cardiology -Remain on telemetry -01/31: Cardiology evaluated, seems to have episodes of high degree AV block with ventricular escape. May need permanent pacemaker placement -02/01: Plan will be for pacemaker today versus Saturday #Dysphagia -Patient had episode where he seemed to be choking on his lunch, eventually was able to cough and swallow -Had been transiently hypoxic in the 80s but his O2 sat increased to 100% on 2 L after he was able to swallow -Unclear what extent may have been aspiration versus able to swallow food bolus -Chest x-ray with no collapse, patient maintaining O2 sat, does not need emergent bronchoscopy -N.p.o. pending speech eval -On evaluation after the incident patient resting comfortably with no wheezing and no respiratory distress and no respiratory complaints, continue to monitor -01/30: Patient for minced and moist, pending video swallow for further recommendations -01/31: We will need dysphagia therapy #Type 2 diabetes mellitus -Glucose checks and sliding scale insulin -Continue insulin glargine, may need to hold or adjust dose if patient remains n.p.o. -01/31: Glucose under tighter control the necessary in acute setting, decrease glargine slightly -02/01: Still under good control with decreased dose of glargine, will continue present management #Left lower lobe airspace disease -Patchy posterior left lower lobe airspace disease with peribronchial thickening -Patient had not reported any symptoms and is afebrile however does have slight left shift and Pro-Dmitry of 0.12 which is nonspecific -Urine antigens negative, COVID-negative, respiratory panel pending -Sputum culture ordered but not collected -MRSA screen negative so we will discontinue vancomycin -Will likely de-escalate or DC Zosyn at 24 to 48 hours pending clinical progress and symptom evaluation -01/29: Chest x-ray obtained due to choking episode, not grossly different from previous, will keep antibiotics today and reevaluate tomorrow but may be able to de-escalate -01/31: Will treat for 5 days for course for CAP -02/01: Will receive Zosyn through tomorrow morning #CKD stage IIIa -Supportive care #Hx DVT/PE -Holding AC given recurrent GIB #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 -It was felt that the heart block was secondary to octreotide which had been DC'd, echo with EF 55 to 60% and normal LV systolic function with trivial MR and mild diffuse aortic calcification, plan was to forego pacemaker at the time -Continue to f/u cards outpt -01/29: Has intermittently had bradycardia, patient on memantine and well rare this can also cause bradycardia so we will hold this and assess for improvement, if not may need to revisit cardiology involvement -01/30: See above #Dementia -Unclear subtype, patient off of Aricept due to his heart block and has been continued on memantine -01/29: Has intermittently had bradycardia, patient on memantine and well rare this can also cause bradycardia so we will hold this #History of AAA -Status post repair 2006, holding aspirin as well as Coumadin given again recurrent bleeding status, recent alteration with hypertensive medications as noted with parent agents, continue statin #Anxiety and depression: We will continue patient home duloxetine regimen. #BPH: We will continue patient home Flomax regimen. #DVT ppx: SCDs Yisel Rendon MD Time spent in the patient's overall evaluation,decision-making process, review of diagnostic data, adjustment of management, discussion with other providers, nursing nursing and ancillary staff involved in patient's care documentation, 51 minutes Charges/Coding Visit Charges Inpatient E&M: 35970 Subs Hosp L3
[2023-02-01] MEDS: 0.9% Saline Lock 10 ML Syringe IV (10:14)
--- NOTE | 2023-02-01 10:39 | CASEMGMT ---
VERO called Soco at [facility] and let her know patient will be getting an EGD today and a pacemaker on Saturday. VERO let Soco know SW will let her know if this changes. Plan: d/c back to [facility] when medically ready. Keily Muniz [employer]
[2023-02-01 10:50] LABS: Bedside Glucose 135 mg/dL (74-106)
--- NOTE | 2023-02-01 10:54 | CASEMGMT ---
Discharge Planning Updates sent to [facility] via [employer]. Tamika Encinas, Discharge Planning Asst.
--- NOTE | 2023-02-01 11:20 | COLBX_PTH ---
PATIENT: RICHARD ROY LOC: [facility] U#:[id number] AGE/SX: 77/M ROOM: [facility] RE01/27/[address]: Dr. Caryl Mcdermott MD : 1945 BED: 1 DIS: 02/05/2023 SPEC #: [id number] RECD: 02/01/23 12:32 STATUS: VINNIE REChantelle #: [id number] CAMILA: 02/01/23 11:[address]: Liu Hackett DEPT: SURGICAL PATHOLOGY RECD BY: Jolene Parks ENTERED: 02/01/23 12:32 SP TYPE: COLON BX OTHR DR: MD Dr. Karen Jackson MD Dr. Christophe Bursley, MD Dr. Paige Pierce, MD Tissues: Duodenum, NOS Procedures: Surgery Specimen Level IV Comments: @ Ordering doctor for SUIV edited from to @ by DONNA at 02/06/23 0939 @ Submitting doctor edited from to @ by RGOOD at 02/06/23 0939 HEADER OPERATION: EGD with biopsies PRE-OP DIAGNOSIS: Upper GI bleeding TISSUE SUBMITTED: Duodenal mass biopsy MICROSCOPIC DIAGNOSIS Duodenal mass, biopsy: Fragments of duodenal mucosa with extensive gastric metaplasia and mild chronic inflammation. Negative for malignancy. See comment. SJ:radhika 02/04/2023 COMMENT Correlation with clinical, endoscopic findings and appropriate follow up are necessary. Please make reference to previous specimen ([id number]) duodenal ulcer, biopsy with diagnosis of fragments of duodenal mucosa with extensive gastric metaplasia and mild nonspecific chronic inflammation. MICROSCOPIC DESCRIPTION Slides are reviewed. GROSS DESCRIPTION Received in fixative is one container labeled with the patient's name and designated duodenal mass. The specimen consists of multiple irregular fragments of light rivas soft tissue that in aggregate measure 1.0 x 0.5 x 0.1 cm. The specimen is totally submitted in one cassette. / AM:radhika 02/01/2023 TC:5 CPT: 22752
--- NOTE | 2023-02-01 11:47 | OP.CCLET_ITS ---
02/01/2023 Luis Caldera Re : Upper GI endoscopy procedure for Mele Szymanski Crystalr Verenice This procedure was performed on Wednesday, February 01, 2023. My impressions and recommendations are as follows: Impressions : - Moderate Schatzki ring. - Medium-sized hiatal hernia. - Likely benign duodenal mass. Biopsied. - Multiple non-bleeding duodenal ulcers with no stigmata of bleeding. Recommendations : - [facility]. - Continue present medications. My findings are described in the full procedure note, which is enclosed. If I can be of further assistance, please feel free to contact me at . Sincerely, Liu Hackett, 02/01/2023 11:47:29 AM This report has been signed electronically.
--- NOTE | 2023-02-01 11:47 | OP.EGD_ITS ---
Patient Name: Mele Szymanski Procedure Date: 02/01/2023 11:20 AM Date of : 1945 Age: 77 Procedure: Upper GI endoscopy Indications: Iron deficiency anemia Providers: Liu Hackett DO Medicines: Monitored Anesthesia Care Patient Profile: This is a 77 year old male. Refer to note in patient chart for documentation of history and physical. Patient has symptoms of acute nausea. He is status post EGD for treatment of bleeding recently. Complications: No immediate complications. Procedure: Pre-Anesthesia Assessment: - Prior to the procedure, a History and Physical was performed, and patient medications and allergies were reviewed. The risks and benefits of the procedure and the sedation options and risks were discussed with the patient. All questions were answered and informed consent was obtained. Patient identification and proposed procedure were verified by the physician in the pre-procedure area. Mental Status Examination: alert and oriented. Airway Examination: normal oropharyngeal airway and neck mobility. Respiratory Examination: clear to auscultation. CV Examination: normal. Prophylactic Antibiotics: The patient does not require prophylactic antibiotics. Prior Anticoagulants: The patient has taken no previous anticoagulant or antiplatelet agents. ASA Grade Assessment: II - A patient with mild systemic disease. After reviewing the risks and benefits, the patient was deemed in satisfactory condition to undergo the procedure. The anesthesia plan was to use monitored anesthesia care (MAC). Immediately prior to administration of medications, the patient was re-assessed for adequacy to receive sedatives. The heart rate, respiratory rate, oxygen saturations, blood pressure, adequacy of pulmonary ventilation, and response to care were monitored throughout the procedure. The physical status of the patient was re-assessed after the procedure. After obtaining informed consent, the endoscope was passed under direct vision. Throughout the procedure, the patient's blood pressure, pulse, and oxygen saturations were monitored continuously. The gastroscope was introduced through the mouth, and advanced to the second part of duodenum. The upper GI endoscopy was accomplished without difficulty. The patient tolerated the procedure well. Scope In: 11:36:12 AM Scope Out: 11:43:23 AM Total Procedure Duration Time 0 hours 7 minutes 11 seconds Findings: A moderate Schatzki ring was found in the lower third of the esophagus. A medium-sized hiatal hernia was present. No other significant abnormalities were identified in a careful examination of the stomach. A medium-sized polypoid mass with no bleeding was found in the duodenal bulb. Biopsies were taken with a cold forceps for histology. Verification of patient identification for the specimen was done. Estimated blood loss was minimal. Four non-bleeding cratered duodenal ulcers with no stigmata of bleeding were found in the duodenal bulb. The largest lesion was 6 mm in largest dimension. Impression: - Moderate Schatzki ring. - Medium-sized hiatal hernia. - Likely benign duodenal mass. Biopsied. - Multiple non-bleeding duodenal ulcers with no stigmata of bleeding. Recommendation: - [facility]. - Continue present medications. Procedure Code(s): --- Professional --- 30792, Esophagogastroduodenoscopy, flexible, transoral; with biopsy, single or multiple CPT copyright 2017 [employer]. All rights reserved. The codes documented in this report are preliminary and upon credit review analyst review may be revised to meet current compliance requirements. Liu Hackett DO 02/01/2023 11:47:29 AM This report has been signed electronically. Number of Addenda: 0 Note Initiated On: 02/01/2023 11:20 AM
[2023-02-01 14:58] LABS: Pathologist Review Reviewed
[2023-02-01] MEDS: Sucralfate 1 GM Tablet PO (15:42)
[2023-02-01] MEDS: Ferrous Sulfate 300 MG/5 ML UDC PO (15:42)
[2023-02-01] MEDS: DULoxetine Hcl 60 MG Capsule PO (15:42)
[2023-02-01] MEDS: amLODIPine 2.5 MG Tablet PO (15:42)
[2023-02-01] MEDS: Ascorbic Acid 500 MG Tablet PO ×2 (15:42→21:28)
[2023-02-01] MEDS: Folic Acid 1 MG Tablet PO (15:43)
[2023-02-01] MEDS: Insulin Glargine-YFGN 100 UNIT/ML Pen 12 UNIT SC (15:50)
[2023-02-01 16:10] LABS: Bedside Glucose 136 mg/dL (74-106)
[2023-02-01] MEDS: Atorvastatin Calcium 40 MG Tablet PO (21:28)
[2023-02-01] MEDS: Tamsulosin HCl 0.4 MG Capsule PO (21:28)
[2023-02-01 22:17] LABS: Bedside Glucose 149 mg/dL (74-106)
[2023-02-02 00:22] VITALS: BP 101/56; PULSE 68; RESP 18; TEMP 35.8; O2SAT 94
[2023-02-02 04:07] VITALS: BMI 29.7
[2023-02-02 05:09] LABS: Bedside Glucose 143 mg/dL (74-106)
[2023-02-02 06:16] VITALS: BP 156/57; PULSE 34; RESP 19; TEMP 35.8; O2SAT 91
[2023-02-02] MEDS: Sucralfate 1 GM Tablet PO ×3 (06:18→17:48)
[2023-02-02 06:29] LABS: Absolute Lymphocyte Count 1.47 X10^3/uL (0.83-4.51); Absolute Neutrophil Count 6.6 X10^3/uL (2.0-7.7); Basophil# 0.02 X10^3/uL; Basophil% 0.2 % (0-1); Eosinophil# 0.19 X10^3/uL; Eosinophils% 2.1 % (0-5); Hematocrit 26.2 % (40-54); Hemoglobin 8.2 g/dL (13.0-16.5); Lymphocyte # 1.47 X10^3/ul (0.83-4.51); Lymphocyte % 16.3 % (19-41); Mean Corp Hgb Conc 31.3 g/dL (32-36); Mean Corpuscular Hgb 27.7 pg (27.0-32.0); Mean Corpuscular Volume 88.5 fL (80-94); Monocyte# 0.47 X10^3/uL; Monocyte% 5.2 % (0-10); NRBC Flagged by Analyzer 0.2 % (0-5); Neutrophil # 6.61 X10^3/uL (2.7-7.7); Neutrophil % 73.3 % (47-70); Platelet Count 362 K/mm3 (150-450); RBC Distribution Width CV 16.9 % (11.6-14.6); RBC Distribution Width SD 52.1 fl (35.1-43.9); Red Blood Count 2.96 M/mm3 (4.6-6.2)
[2023-02-02 07:05] LABS: Anion Gap 3 (5-15); BUN 11 mg/dL (7-18); Calcium,Total 8.2 mg/dL (8.5-10.1); Chloride 114 mmol/L (98-107); EST Glomerular Filtration Rate 69 mL/min (>60); Est Glom Filt Rate - Afr Amer 84 mL/min (>60); Estimated Creatinine Clearance 65.57 ml/min; Glucose 145 mg/dL (74-106); Potassium 3.5 mmol/L (3.5-5.1); Sodium Level 141 mmol/L (136-145)
--- NOTE | 2023-02-02 09:03 | PN.HOSP_ITS ---
Reason for Visit Reason for Visit: Diagnoses Other iron deficiency anemias (01/27/23) Acute posthemorrhagic anemia (01/27/23) Hemorrhagic disorder due to extrinsic circulating anticoagulants (01/27/23) Essential (primary) hypertension (01/27/23) Sick sinus syndrome (01/27/23) Gastrointestinal hemorrhage, unspecified (01/27/23) Adverse effect of anticoagulants, initial encounter (01/27/23) Subjective Subjective Patient denies any chest pain, shortness of breath, abdominal pain, dizziness Objective Data Objective Data Vital Signs: Vital Signs Temp Pulse Resp BP Pulse Ox O2 Del Method O2 Flow Rate 96.5 F L 34 L 19 H 156/57 H 91 Room Air 2 02/02/23 06:16 02/02/23 06:16 02/02/23 06:16 02/02/23 06:16 02/02/23 06:16 02/02/23 06:16 02/01/23 00:17 Oxygen Flow Rate (L/min) 2 Oxygen Delivery Method Room Air Weight: 102.3 kg Body Mass Index (BMI) 29.7 Intake & Output: Intake and Output for Last 24 Hours 01/31/23 02/01/23 02/02/23 23:59 23:59 23:59 Intake Total 810 / 810 470 / 470 160 / 160 Output Total 300 / 700 515 / 615 250 / 250 Balance 510 / 110 -45 / -145 -90 / -90 Lab / Micro Data 02/02/23 06:02 02/02/23 06:06 Labs: Laboratory Results - last 24 hr 01/31/23 05:48: Diff Path Review Reviewed 02/01/23 10:10: POC Glucose 135 H 02/01/23 15:50: POC Glucose 136 H 02/01/23 21:27: POC Glucose 149 H 02/02/23 04:37: POC Glucose 143 H 02/02/23 06:02: WBC 9.0, RBC 2.96 L, Hgb 8.2 L, Hct 26.2 L, MCV 88.5, MCH 27.7, MCHC 31.3 L, RDW Std Deviation 52.1 H, RDW Coeff of Nathaniel 16.9 H, Plt Count 362, MPV 9.0, Immature Gran % (Auto) 2.900 H, Neut % (Auto) 73.3 H, Lymph % (Auto) 16.3 L, [place] % (Auto) 5.2, Eos % (Auto) 2.1, Baso % (Auto) 0.2, Absolute Neuts (auto) 6.6, Absolute Lymphs (auto) 1.47, Nucleated RBC % 0.2 02/02/23 06:06: Sodium 141, Potassium 3.5, Chloride 114 H, Carbon Dioxide 24.0, Anion Gap 3 L, BUN 11, Creatinine 1.10, Estim Creat Clear Calc 65.57, Est GFR (MDRD) Af Amer 84, Est GFR (MDRD) Non-Af 69, BUN/Creatinine Ratio 10.0, Glucose 145 H, Calcium 8.2 L Micro: Microbiology 01/28/23 13:39 Mucosa - Nose Respiratory Panel (PCR) - Final 01/27/23 23:00 Urine, Clean Catch Legionella Antigen - Final 01/27/23 23:00 Urine, Clean Catch Streptococcus pneumoniae Antigen (M - Final Rhythm Strip Rhythm Strip: Sinus Tach Ectopy: PVC(s) Physical Exam Narrative General: Alert, no apparent distress HEENT: Atraumatic, normocephalic Eyes: Anicteric, normal conjunctiva, extraocular movements grossly intact Neck: Supple Respiratory: Normal respiratory effort Cardiovascular: Intermittently will be bradycardic and intermittently irregular rate GI: Soft, nontender, nondistended Extremities: No edema Musculoskeletal: Moving all extremities Neuro: No overt focal neurological deficits Skin: No rashes appreciated Psych: Cooperative Assessment & Plan Assessment/Plan (1) Upper gastrointestinal bleeding: PLAN: Plan #Recurrent GI bleed w/ recent ABLA secondary to upper GI bleed -Re-presented 01/27 with several episodes of bloody stools and positive occult stool at [facility] prompting ED evaluation -Recent EGD 01/23/23 w/ single dysplastic lesion in the stomach treated with APC, gastritis, multiple oozing duodenal ulcers with adherent clot, multiple nonbleeding duodenal ulcers with no stigmata of bleeding -That admission pt required prbc, ppi, octreotide and was d/c'd on PPI BID, sucralfate and iron w/ coumadin held -D/c hgb 8.6, on presentation hgb 8.2 -Started on Protonix drip and given liter of IV fluids, sucralfate hemoglobin stable at present. Patient n.p.o. pending GI evaluation -GI consulted -CTA chest/abdomen/pelvis overall unremarkable from a GI perspective -01/29: No bright red blood per rectum or overt bleeding at this time, hemoglobin with slight downtrend but has been fairly stable. GI recommendations: PPI can be switched to Protonix 40 mg p.o. every 12 hours. He will need sucralfate 1 g p.o. 3 times a day for approximately 8 to 12 weeks. He can take the Protonix for 12 weeks. He will need repeat upper endoscopy in approximately 8 to 12 weeks to ensure healing. Was additionally recommended to check iron studies. Patient n.p.o. as below, will keep PPI IV until evaluated by speech therapy to assess safety of swallowing. Iron test, reticulocyte count, LDH as well as B12 and folate studies ordered to further evaluate anemia. GI following -01/30: Hemoglobin down trended to 6.9, no blood per rectum has been observed and patient does not report abdominal pain but he is a poor historian. Transfusing 1 unit packed red blood cells, also giving IV iron as his iron is on the low side. Does have increased retic count as well. LDH WNL. B12 wnl, folate LLN will add supplementation -01/31: Patient received packed red blood cells and IV iron, hemoglobin 7.6 today. Will give second dose of IV iron per GI recommendations. May need repeat scope -02/01: Repeat upper endoscopy today -02/02: Endoscopy with moderate Schatzki ring, likely benign duodenal mass which was biopsied, multiple nonbleeding duodenal ulcers with no stigmata of bleeding. Continue present management #Symptomatic bradycardia -His last hospitalization he had intermittent bradycardia and secondary degree AV block Mobitz type II, his donepezil and octreotide were stopped and ultimately was not felt he needed a pacemaker -Has been bradycardic here intermittently but had not been symptomatic, Namenda was discontinued to see if this would help however it did not and patient did have episode where he was symptomatic and dizzy and weak -Consult cardiology -Remain on telemetry -01/31: Cardiology evaluated, seems to have episodes of high degree AV block with ventricular escape. May need permanent pacemaker placement -02/01: Plan will be for pacemaker today versus Saturday -02/02: Awaiting pacemaker Saturday #Dysphagia -Patient had episode where he seemed to be choking on his lunch, eventually was able to cough and swallow -Had been transiently hypoxic in the 80s but his O2 sat increased to 100% on 2 L after he was able to swallow -Unclear what extent may have been aspiration versus able to swallow food bolus -Chest x-ray with no collapse, patient maintaining O2 sat, does not need emergent bronchoscopy -N.p.o. pending speech eval -On evaluation after the incident patient resting comfortably with no wheezing and no respiratory distress and no respiratory complaints, continue to monitor -01/30: Patient for minced and moist, pending video swallow for further recom mendations -01/31: We will need dysphagia therapy -02/02: Continue modified diet and dysphagia therapy #Type 2 diabetes mellitus -Glucose checks and sliding scale insulin -Continue insulin glargine, may need to hold or adjust dose if patient remains n.p.o. -01/31: Glucose under tighter control the necessary in acute setting, decrease glargine slightly -02/01: Still under good control with decreased dose of glargine, will continue present management -02/02: Well-controlled, continue current management #Left lower lobe airspace disease -Patchy posterior left lower lobe airspace disease with peribronchial thickening -Patient had not reported any symptoms and is afebrile however does have slight left shift and Pro-Dmitry of 0.12 which is nonspecific -Urine antigens negative, COVID-negative, respiratory panel pending -Sputum culture ordered but not collected -MRSA screen negative so we will discontinue vancomycin -Will likely de-escalate or DC Zosyn at 24 to 48 hours pending clinical progress and symptom evaluation -01/29: Chest x-ray obtained due to choking episode, not grossly different from p revious, will keep antibiotics today and reevaluate tomorrow but may be able to de-escalate -01/31: Will treat for 5 days for course for CAP -02/01: Will receive Zosyn through tomorrow morning -02/02: Zosyn DC'd #CKD stage IIIa -Supportive care #Hx DVT/PE -Holding AC given recurrent GIB #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 -It was felt that the heart block was secondary to octreotide which had been DC'd, echo with EF 55 to 60% and normal LV systolic function with trivial MR and mild diffuse aortic calcification, plan was to forego pacemaker at the time -Continue to f/u cards outpt -01/29: Has intermittently had bradycardia, patient on memantine and well rare this can also cause bradycardia so we will hold this and assess for improvement, if not may need to revisit cardiology involvement -01/30: See above #Dementia -Unclear subtype, patient off of Aricept due to his heart block and has been continued on memantine -01/29: Has intermittently had bradycardia, patient on memantine and well rare this can also cause bradycardia so we will hold this #History of AAA -Status post repair 2006, holding aspirin as well as Coumadin given again recurrent bleeding status, recent alteration with hypertensive medications as noted with parent agents, continue statin #Anxiety and depression: We will continue patient home duloxetine regimen. #BPH: We will continue patient home Flomax regimen. #DVT ppx: SCDs Yisel Rendon MD Time spent in the patient's overall evaluation,decision-making process, review of diagnostic data, adjustment of management, discussion with other providers, nursing nursing and ancillary staff involved in patient's care documentation, 37 minutes Charges/Coding Visit Charges Inpatient E&M: 66029 Subs Hosp L2
[2023-02-02 09:08] VITALS: BP 133/53; PULSE 44; RESP 16; TEMP 36.2; O2SAT 94
[2023-02-02] MEDS: Folic Acid 1 MG Tablet PO (09:24)
[2023-02-02] MEDS: Ferrous Sulfate 300 MG/5 ML UDC PO (09:24)
[2023-02-02] MEDS: DULoxetine Hcl 60 MG Capsule PO (09:24)
[2023-02-02] MEDS: amLODIPine 2.5 MG Tablet PO (09:24)
[2023-02-02] MEDS: Ascorbic Acid 500 MG Tablet PO ×2 (09:25→21:19)
[2023-02-02] MEDS: Insulin Glargine-YFGN 100 UNIT/ML Pen 12 UNIT SC (09:25)
[2023-02-02 14:53] VITALS: BP 128/49; PULSE 52; RESP 16; TEMP 36.2; O2SAT 95
[2023-02-02] MEDS: Insulin Lispro 100 UNIT/ML INSULN.PEN SC ×2 (17:48→21:32)
[2023-02-02 18:07] LABS: Bedside Glucose 175 mg/dL (74-106)
[2023-02-02 21:13] VITALS: BP 141/58; PULSE 54; RESP 16; TEMP 36.4; O2SAT 93
[2023-02-02] MEDS: Atorvastatin Calcium 40 MG Tablet PO (21:19)
[2023-02-02] MEDS: Tamsulosin HCl 0.4 MG Capsule PO (21:19)
[2023-02-02] MEDS: 0.9% Saline Lock 10 ML Syringe IV (21:44)
[2023-02-02 22:02] LABS: Bedside Glucose 191 mg/dL (74-106)
[2023-02-03 03:28] VITALS: BP 143/55; PULSE 42; RESP 16; TEMP 36.6; O2SAT 99
[2023-02-03] MEDS: Insulin Lispro 100 UNIT/ML INSULN.PEN SC ×2 (03:35→22:04)
[2023-02-03 03:45] VITALS: BMI 29.8
[2023-02-03 04:06] LABS: Bedside Glucose 185 mg/dL (74-106)
[2023-02-03 06:17] LABS: Absolute Lymphocyte Count 1.66 X10^3/uL (0.83-4.51); Absolute Neutrophil Count 6.6 X10^3/uL (2.0-7.7); Basophil# 0.02 X10^3/uL; Basophil% 0.2 % (0-1); Eosinophil# 0.18 X10^3/uL; Eosinophils% 1.9 % (0-5); Hematocrit 25.6 % (40-54); Lymphocyte # 1.66 X10^3/ul (0.83-4.51); Lymphocyte % 17.9 % (19-41); Mean Corp Hgb Conc 31.3 g/dL (32-36); Mean Corpuscular Hgb 27.6 pg (27.0-32.0); Mean Corpuscular Volume 88.3 fL (80-94); Mean Platelet Vol. 9.1 fl (6.2-12.0); Monocyte# 0.59 X10^3/uL; Monocyte% 6.4 % (0-10); NRBC Flagged by Analyzer 0 % (0-5); Neutrophil # 6.61 X10^3/uL (2.7-7.7); Neutrophil % 71.1 % (47-70); Platelet Count 346 K/mm3 (150-450); RBC Distribution Width CV 17.4 % (11.6-14.6); RBC Distribution Width SD 52.8 fl (35.1-43.9); White Blood Count 9.3 K/mm3 (4.4-11.0)
[2023-02-03] MEDS: Sucralfate 1 GM Tablet PO (06:21)
[2023-02-03 07:00] LABS: Anion Gap 4 (5-15); BUN 12 mg/dL (7-18); BUN/Creat Ratio 11.9 RATIO (10-20); Calcium,Total 8.1 mg/dL (8.5-10.1); Chloride 113 mmol/L (98-107); Creatinine, Serum 1.01 mg/dL (0.70-1.30); EST Glomerular Filtration Rate 77 mL/min (>60); Est Glom Filt Rate - Afr Amer 93 mL/min (>60); Estimated Creatinine Clearance 71.42 ml/min; Glucose 147 mg/dL (74-106); Potassium 3.5 mmol/L (3.5-5.1); Sodium Level 141 mmol/L (136-145)
[2023-02-03 08:18] VITALS: BP 137/59; PULSE 48; RESP 16; TEMP 36.4; O2SAT 99
--- NOTE | 2023-02-03 09:20 | PCM.PN.HOSP ---
Reason for Visit Reason for Visit: Diagnoses Other iron deficiency anemias (01/27/23) Acute posthemorrhagic anemia (01/27/23) Hemorrhagic disorder due to extrinsic circulating anticoagulants (01/27/23) Essential (primary) hypertension (01/27/23) Sick sinus syndrome (01/27/23) Gastrointestinal hemorrhage, unspecified (01/27/23) Adverse effect of anticoagulants, initial encounter (01/27/23) Subjective Subjective Presently denying any complaints Objective Data Objective Data Vital Signs: Vital Signs Temp Pulse Resp BP Pulse Ox O2 Del Method O2 Flow Rate 97.5 F L 48 L 16 137/59 H 99 Room Air 2 02/03/23 08:18 02/03/23 08:18 02/03/23 08:18 02/03/23 08:18 02/03/23 08:18 02/03/23 08:18 02/01/23 00:17 Oxygen Flow Rate (L/min) 2 Oxygen Delivery Method Room Air Weight: 102.7 kg Body Mass Index (BMI) 29.8 Intake & Output: Intake and Output for Last 24 Hours 02/01/23 02/02/23 02/03/23 23:59 23:59 23:59 Intake Total 470 / 470 690 / 690 300 / 300 Output Total 515 / 615 1450 / 1450 250 / 250 Balance -45 / -145 -760 / -760 50 / 50 Lab / Micro Data 02/03/23 05:55 02/03/23 05:55 Labs: Laboratory Results - last 24 hr 02/02/23 17:46: POC Glucose 175 H 02/02/23 21:30: POC Glucose 191 H 02/03/23 03:34: POC Glucose 185 H 02/03/23 05:55: WBC 9.3, RBC 2.90 L, Hgb 8.0 L, Hct 25.6 L, MCV 88.3, MCH 27.6, MCHC 31.3 L, RDW Std Deviation 52.8 H, RDW Coeff of Nathaniel 17.4 H, Plt Count 346, MPV 9.1, Immature Gran % (Auto) 2.500 H, Neut % (Auto) 71.1 H, Lymph % (Auto) 17.9 L, [place] % (Auto) 6.4, Eos % (Auto) 1.9, Baso % (Auto) 0.2, Absolute Neuts (auto) 6.6, Absolute Lymphs (auto) 1.66, Nucleated RBC % 0, Sodium 141, Potassium 3.5, Chloride 113 H, Carbon Dioxide 24.0, Anion Gap 4 L, BUN 12, Creatinine 1.01, Estim Creat Clear Calc 71.42, Est GFR (MDRD) Af Amer 93, Est GFR (MDRD) Non-Af 77, BUN/Creatinine Ratio 11.9, Glucose 147 H, Calcium 8.1 L Micro: Microbiology 01/28/23 13:39 Mucosa - Nose Respiratory Panel (PCR) - Final 01/27/23 23:00 Urine, Clean Catch Legionella Antigen - Final 01/27/23 23:00 Urine, Clean Catch Streptococcus pneumoniae Antigen (M - Final Rhythm Strip Rhythm Strip: Sinus Tach Ectopy: PVC(s) Physical Exam Narrative General: Alert, no apparent distress HEENT: Atraumatic, normocephalic Eyes: Anicteric, normal conjunctiva, extraocular movements grossly intact Neck: Supple Respiratory: Normal respiratory effort Cardiovascular: Intermittently will be bradycardic and intermittently irregular rate GI: Soft, nontender, nondistended Extremities: No edema Musculoskeletal: Moving all extremities Neuro: No overt focal neurological deficits Skin: No rashes appreciated Psych: Cooperative Assessment & Plan Assessment/Plan (1) Upper gastrointestinal bleeding: PLAN: Plan #Recurrent GI bleed w/ recent ABLA secondary to upper GI bleed -Re-presented 01/27 with several episodes of bloody stools and [facility] evaluation -Recent EGD 01/23/23 w/ single dysplastic lesion in the stomach treated with APC, gastritis, multiple oozing duodenal ulcers with adherent clot, multiple nonbleeding duodenal ulcers with no stigmata of bleeding -That admission pt required prbc, ppi, octreotide and was d/c'd on PPI BID, sucralfate and iron w/ coumadin held -D/c hgb 8.6, on presentation hgb 8.2 -Started on Protonix drip and given liter of IV fluids, sucralfate hemoglobin stable at present. Patient n.p.o. pending GI evaluation -GI consulted -CTA chest/abdomen/pelvis overall unremarkable from a GI perspective -01/29: No bright red blood per rectum or overt bleeding at this time, hemoglobin with slight downtrend but has been fairly stable. GI recommendations: PPI can be switched to Protonix 40 mg p.o. every 12 hours. He will need sucralfate 1 g p.o. 3 times a day for approximately 8 to 12 weeks. He can take the Protonix for 12 weeks. He will need repeat upper endoscopy in approximately 8 to 12 weeks to ensure healing. Was additionally recommended to check iron studies. Patient n.p.o. as below, will keep PPI IV until evaluated by speech therapy to assess safety of swallowing. Iron test, reticulocyte count, LDH as well as B12 and folate studies ordered to further evaluate anemia. GI following -01/30: Hemoglobin down trended to 6.9, no blood per rectum has been observed and patient does not report abdominal pain but he is a poor historian. Transfusing 1 unit packed red blood cells, also giving IV iron as his iron is on the low side. Does have increased retic count as well. LDH WNL. B12 wnl, folate LLN will add supplementation -01/31: Patient received packed red blood cells and IV iron, hemoglobin 7.6 today. Will give second dose of IV iron per GI recommendations. May need repeat scope -02/01: Repeat upper endoscopy today -02/02: Endoscopy with moderate Schatzki ring, likely benign duodenal mass which was biopsied, multiple nonbleeding duodenal ulcers with no stigmata of bleeding. Continue present management -02/03: Stable with hemoglobin of 8 #Symptomatic bradycardia -His last hospitalization he had intermittent bradycardia and secondary degree AV block Mobitz type II, his donepezil and octreotide were stopped and ultimately was not felt he needed a pacemaker -Has been bradycardic here intermittently but had not been symptomatic, Namenda was discontinued to see if this would help however it did not and patient did have episode where he was symptomatic and dizzy and weak -Consult cardiology -Remain on telemetry -01/31: Cardiology evaluated, seems to have episodes of high degree AV block with ventricular escape. May need permanent pacemaker placement -02/01: Plan will be for pacemaker today versus Saturday -02/02: Awaiting pacemaker Saturday -02/03: Continues to have bradycardic episodes and heart block on telemetry, will make n.p.o. at midnight for plan for pacemaker tomorrow #Dysphagia -Patient had episode where he seemed to be choking on his lunch, eventually was able to cough and swallow -Had been transiently hypoxic in the 80s but his O2 sat increased to 100% on 2 L after he was able to swallow -Unclear what extent may have been aspiration versus able to swallow food bolus -Chest x-ray with no collapse, patient maintaining O2 sat, does not need emergent bronchoscopy -N.p.o. pending speech eval -On evaluation after the incident patient resting comfortably with no wheezing and no respiratory distress and no respiratory complaints, continue to monitor -01/30: Patient for minced and moist, pending video swallow for further recommendations -01/31: We will need dysphagia therapy -02/02: Continue modified diet and dysphagia therapy #Type 2 diabetes mellitus -Glucose checks and sliding scale insulin -Continue insulin glargine, may need to hold or adjust dose if patient remains n.p.o. -01/31: Glucose under tighter control the necessary in acute setting, decrease glargine slightly -02/01: Still under good control with decreased dose of glargine, will continue present management -02/02: Well-controlled, continue current management -02/03: Fasting glucose 185 and overall has been consistent and sometimes even into 130s, continue present management #Left lower lobe airspace disease -Patchy posterior left lower lobe airspace disease with peribronchial thickening -Patient had not reported any symptoms and is afebrile however does have slight left shift and Pro-Dmitry of 0.12 which is nonspecific -Urine antigens negative, COVID-negative, respiratory panel pending -Sputum culture ordered but not collected -MRSA screen negative so we will discontinue vancomycin -Will likely de-escalate or DC Zosyn at 24 to 48 hours pending clinical progress and symptom evaluation -01/29: Chest x-ray obtained due to choking episode, not grossly different from previous, will keep antibiotics today and reevaluate tomorrow but may be able to de-escalate -01/31: Will treat for 5 days for course for CAP -02/01: Will receive Zosyn through tomorrow morning -02/02: Zosyn DC'd -02/03: 99% on room air and doing well #CKD stage IIIa -Supportive care #Hx DVT/PE -Holding AC given recurrent GIB #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 -It was felt that the heart block was secondary to octreotide which had been DC'd, echo with EF 55 to 60% and normal LV systolic function with trivial MR and mild diffuse aortic calcification, plan was to forego pacemaker at the time -Continue to f/u cards outpt -01/29: Has intermittently had bradycardia, patient on memantine and well rare this can also cause bradycardia so we will hold this and assess for improvement, if not may need to revisit cardiology involvement -01/30: See above #Dementia -Unclear subtype, patient off of Aricept due to his heart block and has been continued on memantine -01/29: Has intermittently had bradycardia, patient on memantine and well rare this can also cause bradycardia so we will hold this #History of AAA -Status post repair 2006, holding aspirin as well as Coumadin given again recurrent bleeding status, recent alteration with hypertensive medications as noted with parent agents, continue statin #Anxiety and depression: We will continue patient home duloxetine regimen. #BPH: We will continue patient home Flomax regimen. #DVT ppx: SCDs Yisel Rendon MD Time spent in the patient's overall evaluation,decision-making process, review of diagnostic data, adjustment of management, discussion with other providers, nursing nursing and ancillary staff involved in patient's care documentation, 37 minutes Charges/Coding Visit Charges Inpatient E&M: 72103 Subs Hosp L2
[2023-02-03] MEDS: Folic Acid 1 MG Tablet PO (09:34)
[2023-02-03] MEDS: Ferrous Sulfate 300 MG/5 ML UDC PO (09:34)
[2023-02-03] MEDS: Insulin Glargine-YFGN 100 UNIT/ML Pen 12 UNIT SC (09:35)
[2023-02-03] MEDS: amLODIPine 2.5 MG Tablet PO (09:35)
[2023-02-03] MEDS: DULoxetine Hcl 60 MG Capsule PO (09:35)
[2023-02-03] MEDS: Ascorbic Acid 500 MG Tablet PO ×2 (09:35→22:06)
[2023-02-03 15:29] VITALS: BP 119/52; PULSE 47; RESP 17; TEMP 36.6; O2SAT 98
[2023-02-03 15:58] LABS: Bedside Glucose 140 mg/dL (74-106)
[2023-02-03 20:18] VITALS: BP 116/48; PULSE 61; RESP 16; TEMP 36.4; O2SAT 94
[2023-02-03] MEDS: Tamsulosin HCl 0.4 MG Capsule PO (22:06)
[2023-02-03] MEDS: Atorvastatin Calcium 40 MG Tablet PO (22:06)
[2023-02-03 22:46] LABS: Bedside Glucose 208 mg/dL (74-106)
[2023-02-04] VITALS (10 sets, daily range): BP systolic 98–155; BP diastolic 45–93; PULSE 42–85; RESP 16–18; TEMP 36.2–36.7; O2SAT 95–99; BMI 30.3
[2023-02-04 05:47] LABS: Bedside Glucose 149 mg/dL (74-106)
[2023-02-04 05:51] LABS: Absolute Lymphocyte Count 1.39 X10^3/uL (0.83-4.51); Absolute Neutrophil Count 5.8 X10^3/uL (2.0-7.7); Basophil# 0.01 X10^3/uL; Basophil% 0.1 % (0-1); Eosinophil# 0.21 X10^3/uL; Eosinophils% 2.6 % (0-5); Hematocrit 28.9 % (40-54); Hemoglobin 8.8 g/dL (13.0-16.5); Lymphocyte # 1.39 X10^3/ul (0.83-4.51); Lymphocyte % 17.2 % (19-41); Mean Corp Hgb Conc 30.4 g/dL (32-36); Mean Corpuscular Hgb 27.2 pg (27.0-32.0); Mean Corpuscular Volume 89.5 fL (80-94); Mean Platelet Vol. 8.8 fl (6.2-12.0); Monocyte# 0.51 X10^3/uL; Monocyte% 6.3 % (0-10); NRBC Flagged by Analyzer 0 % (0-5); Neutrophil # 5.78 X10^3/uL (2.7-7.7); Neutrophil % 71.5 % (47-70); Platelet Count 341 K/mm3 (150-450); RBC Distribution Width CV 17.8 % (11.6-14.6); RBC Distribution Width SD 56.6 fl (35.1-43.9); Red Blood Count 3.23 M/mm3 (4.6-6.2); White Blood Count 8.1 K/mm3 (4.4-11.0)
--- NOTE | 2023-02-04 05:55 | EKG12_ITS ---
Test Reason : ABNORMAL RYTHMN Blood Pressure : / mmHG Vent. Rate : 047 BPM Atrial Rate : 047 BPM P-R Int : 210 ms QRS Dur : 150 ms QT Int : 512 ms P-R-T Axes : 091 -52 056 degrees QTc Int : 453 ms Sinus bradycardia with sinus arrhythmia with 1st degree A-V block Right bundle branch block Left anterior fascicular block Bifascicular block Abnormal ECG When compared with ECG of 24-JAN-2023 20:10, MANUAL COMPARISON REQUIRED, DATA IS UNCONFIRMED Confirmed by ANISA COLBERT, YECENIA ([id number]), editorial project manager SOFIA CAMERON ([id number]) on 02/05/2023 7:14:53 AM Referred By: JESSICA Confirmed By:YECENIA LANGE MD
[2023-02-04] MEDS: 0.9% Normal Saline 1,000 ML 15 ML IV ×2 (06:27→09:42)
[2023-02-04] MEDS: 0.9% Saline Lock 10 ML Syringe IV (06:28)
[2023-02-04 06:33] LABS: Anion Gap 6 (5-15); BUN 12 mg/dL (7-18); BUN/Creat Ratio 10.6 RATIO (10-20); Calcium,Total 8.4 mg/dL (8.5-10.1); Chloride 110 mmol/L (98-107); Creatinine, Serum 1.13 mg/dL (0.70-1.30); EST Glomerular Filtration Rate 67 mL/min (>60); Est Glom Filt Rate - Afr Amer 81 mL/min (>60); Estimated Creatinine Clearance 63.83 ml/min; Glucose 151 mg/dL (74-106); Potassium 3.5 mmol/L (3.5-5.1); Sodium Level 141 mmol/L (136-145)
--- NOTE | 2023-02-04 07:46 | PN.HOSP_ITS ---
Reason for Visit Reason for Visit: Diagnoses Other iron deficiency anemias (01/27/23) Acute posthemorrhagic anemia (01/27/23) Hemorrhagic disorder due to extrinsic circulating anticoagulants (01/27/23) Essential (primary) hypertension (01/27/23) Sick sinus syndrome (01/27/23) Gastrointestinal hemorrhage, unspecified (01/27/23) Adverse effect of anticoagulants, initial encounter (01/27/23) Subjective Subjective Patient denies any issues overnight per self and also per nursing staff with understanding per patient of planned pacemaker placement today given ongoing issues with high degree AV block and bradycardia. He denies any lightheadedness or dizziness. He denies any bright red blood per rectum or black dark stools above baseline expected on iron supplementation. Reviewed recent EGD with nonbleeding findings and stable hemoglobin with likely return to skilled facility this week once cleared by cardiology following pacemaker placement which patient is amenable. Patient denies fevers, chills, nausea, emesis, abdominal pain, chest pain or dyspnea. Objective Data Objective Data Vital Signs: Vital Signs Temp Pulse Resp BP Pulse Ox O2 Del Method O2 Flow Rate 97.9 F 42 L 18 136/56 H 95 Room Air 2 02/04/23 06:39 02/04/23 06:39 02/04/23 06:39 02/04/23 06:39 02/04/23 06:39 02/04/23 06:39 02/01/23 00:17 Oxygen Flow Rate (L/min) 2 Oxygen Delivery Method Room Air Weight: 229 lb 11.547 oz Body Mass Index (BMI) 30.3 Intake & Output: Intake and Output for Last 24 Hours 02/02/23 02/03/23 02/04/23 23:59 23:59 23:59 Intake Total 690 / 690 2029 / 2030 0 / 0 Output Total 1450 / 1450 850 / 850 200 / 200 Balance -760 / -760 1180 / 1180 -200 / -200 Lab / Micro Data 02/04/23 05:31 02/04/23 05:31 Labs: Laboratory Results - last 24 hr 02/03/23 15:36: POC Glucose 140 H 02/03/23 22:01: POC Glucose 208 H 02/04/23 05:12: POC Glucose 149 H 02/04/23 05:31: WBC 8.1, RBC 3.23 L, Hgb 8.8 L, Hct 28.9 L, MCV 89.5, MCH 27.2, MCHC 30.4 L, RDW Std Deviation 56.6 H, RDW Coeff of Nathaniel 17.8 H, Plt Count 341, MPV 8.8, Immature Gran % (Auto) 2.300 H, Neut % (Auto) 71.5 H, Lymph % (Auto) 17.2 L, Branch % (Auto) 6.3, Eos % (Auto) 2.6, Baso % (Auto) 0.1, Absolute Neuts (auto) 5.8, Absolute Lymphs (auto) 1.39, Nucleated RBC % 0, Sodium 141, Potassium 3.5, Chloride 110 H, Carbon Dioxide 25.0, Anion Gap 6, BUN 12, Creatinine 1.13, Estim Creat Clear Calc 63.83, Est GFR (MDRD) Af Amer 81, Est GFR (MDRD) Non-Af 67, BUN/Creatinine Ratio 10.6, Glucose 151 H, Calcium 8.4 L Micro: Microbiology 01/28/23 13:39 Mucosa - Nose Respiratory Panel (PCR) - Final 01/27/23 23:00 Urine, Clean Catch Legionella Antigen - Final 01/27/23 23:00 Urine, Clean Catch Streptococcus pneumoniae Antigen (M - Final Rhythm Strip Rhythm Strip: Sinus Tach Ectopy: PVC(s) Physical Exam Narrative Physical Examination: General: Awake, alert, oriented x 3, fatigued however able to converse without issue and appropriate. Skin: Normal color, normal turgor, no icterus, no cyanosis except for occasional staged ecchymoses, healed abrasions. HEENT: AT/NC, EOMI, PERRLA, MMM. Lungs: Mildly diminished, greater bases, appropriate effort, no rales, ronchi or wheezing. Heart: Currently bradycardic with regular rhythm; no gallop, rub audible. Abdomen: Soft, obese, NTTP, ND, normal BS. Extremities: No cyanosis, clubbing, or edema, see skin. Neurological: Patient awake, alert, oriented as noted, cognitive function baseline intact although markedly fatigued; pupils equally reactive to light and accommodation, cranial nerves grossly normal, moving all 4 extremities, no focal deficits, strength moderately to severely globally decreased secondary to acute presentation and notable underlying comorbidities. Psychiatric: Affect appears fatigued although improved since initial ED arrival, no acute evidence of depressive or anxiety feelings. Assessment & Plan Assessment/Plan (1) Sick sinus syndrome: PLAN: Plan The patient is a 77 y/o M w/ PMHx: CKD stage IIIa, AAA s/p repair, Hx COVID-19, Hx GI bleed, Valvular heart disease s/p AVR, HTN, HLD, VTE w/ Hx DVT/PE, Diabetes mellitus type II, Obesity, discharged on 01/26/23 following lengthy admission with 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, syncopal events secondary to hypotension with GI bleed and HB, ANTHONY on CKD stage IIIa who now re-presents to the [facility] ED on 01/27/23 with onset of several episodes of bloody stools with + occult stool check at facility prompting SNF to bring him back for re- evaluation. #1. Recurrent GI bleed w/ recent ABLA secondary to upper GI bleed with associat ed Hypotension/Shock prior admission: Recent EGD w/ single dysplastic lesion in the stomach treated with APC, gastritis, multiple oozing duodenal ulcers with adherent clot, multiple nonbleeding duodenal ulcers with no stigmata of bleeding, Hgb at discharge 8.6, treated prior with PRBC administration, Protonix drip, Octreotide drip eventual discharged on PPI BID, sulcralafate, ferrous sulfate and vitamin C with coumadin held. Admission hemoglobin 8.2 which is very similar to recent discharge although mildly decreased from 8.6, admitted to PCU, maintianaed on IVFs, HHs monitored with drop 01/30/23 down to 6.9 with PRBC administration, GI consulted with 02/01/23 EGD with moderate Schatzki's ring, medium sized hiatal hernia, likely benign duodenal mass which was biopsied, multiple nonbleeding duodenal ulcers with no stigmata of bleeding, 02/04/23 Hgb 8.8, stable. Fe studies/vitamin B12/folic acid level assessment performed. s/p 1 u PRBC administration. IV Fe x 2 doses. #2. Recent Syncopal events secondary to Hypotension w/ GI bleed as well as Transient PAF/Mobitz type II second-degree AV block c/w Sick Sinus Syndrome: Onset during admission, felt HB secondary to octreotide which was d/c, ECHO w/ EF 55 to 60%, normal LV systolic function, trivial MR, mild diffuse aortic valve calcification w/ Caridology evaluation with decision against pacemaker initially but continued to have recurrent episodes of high degree AV block with ventricular escape. Cardiology consultation, plan 02/04/2023 pacemaker placement. #3. Recent ANTHONY on CKD stage IIIa, resolved: During previous admission patient creatinine initially 1.99 with clinical improvement, today upon presentation 01/27/2023 BUN/creatinine 29/1.42, baseline creatinine appears 1.4, stable, 02/04/2023 BUN/creatinine 12/1.13, resolved. #4. Hypertension: Recent discharge with hold on losartan and discontinuation of metoprolol given heart block, blood pressures had been low, will continue on PRN hydralazine. #5. Hyperlipidemia: We will continue patient on statin therapy. #6. Advanced dementia unclear specific type with unclear behavior disturbance history: Given heart block as patient had been on antidepressant and Aricept Aricept was held as suspected also causative of AV block/conduction disorder therefore patient was discharged on memantine instead which will be continued. #7. Diabetes mellitus type II: Hold oral home regimen, ADA diet, accu checks w/ ISS. #8. History of VTE: Patient with history of DVT, PE, previously on Coumadin which during prior admission had been held with IV vitamin K administered given acute presentation with GI bleed, given repeat presentation we will continue to hold Coumadin as there initially been a thought about resumption in 5 days. #9. History AAA: Status post repair 2006, holding aspirin as well as Coumadin given again recurrent bleeding status, recent alteration with hypertensive medications as noted with parent agents, continue statin. #10. Valvular heart disease: Status post AVR, ECHO w/ EF 55 to 60%, normal LV systolic function, trivial MR, mild diffuse aortic valve calcification. #11. Anxiety and depression: We will continue patient home duloxetine regimen. #12. BPH: We will continue patient home Flomax regimen. #13. Obesity: Weight loss and lifestyle changes encouraged. #14. DVT prophylaxis: SCDs. #15. CODE status: present for discussions. Patient HCPTO is their son Teddy and living will is currently in place. Code status Full Code status. Charges/Coding Visit Charges Inpatient E&M: 49733 Subs Hosp L3
--- NOTE | 2023-02-04 14:20 | CASEMGMT ---
Discharge Planning Updates sent to [facility] via [facility]. Tamika Encinas, Discharge Planning Asst.
--- NOTE | 2023-02-04 14:41 | CL.IE_ITS ---
Patient: RICHARD ROY Study Date: 02/04/2023 Performing: Júnior Chandra MD : 1945 Age: 77 Gender: male PROCEDURES PERFORMED [id number])INITIAL PACER INSERT+DUAL LEADS INDICATIONS Sinoatrial node dysfunction/Sick sinus syndrome PROCEDURE DETAILS The patient was brought to the Catheterization Lab in the postabsorptive nonsedated state. Informed consent was obtained prior to the procedure. Local anesthetic was given subcutaneously to the left upper chest area with Lidocaine 2%. Access was achieved and a guidewire was advanced into the left subclavian vein. Incision was made to the left upper chest. PPM ventricular lead was inserted / positioned to right ventricular. PPM ventricular lead testing performed. PPM ventricular lead testing performed. PPM atrial lead was inserted / positioned to the right atrial appendage. PPM atrial lead testing performed. The Atrial lead sutured in place with. The Ventricular PM lead sutured in place with. PPM generator was attached to the lead(s) and inserted into the pocket. The PPM generator was sutured in place with. Subcutaneous closure was completed with. Subcutaneous closure was completed with. Skin closure was completed with. Instrument, sponge, and needle counts were noted to be normal. The patient tolerated the procedure well. Estimated Blood Loss: 50 ml's IMPLANTED / EX-PLANTED DEVICES IMPLANTED DEVICE(S): PPM Ventricular lead - Metal Roofer: [employer], Model # [id number] , Serial # [id number] PPM Atrial lead - Metal Roofer: [employer], Model # 2088TC , Serial # [id number] PPM Generator - Metal Roofer: [employer], Model # [id number] , Serial # [id number] DEVICE PARAMETERS DEVICE PARAMETERS: Mode - DDD lower rate - 60 upper rate - 120 rate response off Mode- ddd Lower rate- 60 Upper rate- 120 CONCLUSIONS / RECOMMENDATIONS Device Conclusions: Successful implantation of a dual chamber pacemaker Device Recommendations: Follow up with Primary Care Physician PROCEDURE MEDICATIONS Versed 1 mg IV Fentanyl 50 mcg IV Oxygen: 2 L/min via nasal cannula Oxygen: 4 L/min via nasal cannula Antibiotic given in appropriate timeframe. Ancef 2 Gm IV @ 02/04/2023 13:33:16 Signed By Júnior Chandra MD On 02/04/2023 14:40:39 Júnior Chandra MD
[2023-02-04] MEDS: Insulin Lispro 100 UNIT/ML INSULN.PEN SC ×2 (16:37→21:54)
[2023-02-04] MEDS: Sucralfate 1 GM Tablet PO (16:37)
[2023-02-04 17:17] LABS: Bedside Glucose 153 mg/dL (74-106)
[2023-02-04] MEDS: Atorvastatin Calcium 40 MG Tablet PO (21:54)
[2023-02-04] MEDS: Ascorbic Acid 500 MG Tablet PO (21:54)
[2023-02-04] MEDS: Tamsulosin HCl 0.4 MG Capsule PO (21:54)
[2023-02-04 22:26] LABS: Bedside Glucose 197 mg/dL (74-106)
[2023-02-05 05:36] VITALS: BMI 30.6
--- NOTE | 2023-02-05 05:55 | RAD_ITS ---
EXAM: XR CHEST, 3 VIEWS CLINICAL INDICATION: Post permanant ICD/Pacemaker -- inspiration/expiration. Arms Down. Wet read to MD TECHNIQUE: Frontal, lateral and one additional view of the chest. COMPARISON: 01/29/2023. FINDINGS: LUNGS AND PLEURAL SPACES: Unremarkable. No consolidation or edema. No pneumothorax. No effusion. HEART: Unremarkable. Cardiac silhouette not enlarged. MEDIASTINUM: Central airways and mediastinal contour are unremarkable. BONES/JOINTS: Sternal wires. SOFT TISSUES: Unremarkable. TUBES, LINES AND DEVICES: No change pacemaker. RAD/Chest 3 View IMPRESSION: No acute cardiopulmonary abnormality. Electronically Signed: Tuan Oliver MD at 5:16 EDT ,
[2023-02-05 06:00] VITALS: BP 154/79; PULSE 74; RESP 18; TEMP 36.4; O2SAT 94
[2023-02-05] MEDS: Sucralfate 1 GM Tablet PO ×2 (06:13→09:42)
[2023-02-05 06:38] LABS: Bedside Glucose 147 mg/dL (74-106)
--- NOTE | 2023-02-05 09:12 | PCM.PN.CARD ---
Subjective Subjective Patient seen and eval noted. Appears to be stable. Objective Data Vital Signs: Vital Signs Temp Pulse Resp BP Pulse Ox O2 Del Method O2 Flow Rate 97.5 F L 74 18 154/79 H 94 Room Air 2 02/05/23 06:00 02/05/23 06:00 02/05/23 06:00 02/05/23 06:00 02/05/23 06:00 02/05/23 06:00 02/01/23 00:17 Oxygen Flow Rate (L/min) 2 Oxygen Delivery Method Room Air Weight: 231 lb 14.821 oz Body Mass Index (BMI) 30.6 Intake & Output: Intake and Output for Last 24 Hours 02/03/23 02/04/23 02/05/23 23:59 23:59 23:59 Intake Total 2030 / 2029 159.75 / 159.75 110 / 110 Output Total 850 / 850 650 / 750 100 / 100 Balance 1180 / 1180 -490.25 / -590.25 Lab / Micro Data 02/04/23 05:31 02/04/23 05:31 Labs: Laboratory Results - last 24 hr 02/04/23 16:36: POC Glucose 153 H 02/04/23 21:52: POC Glucose 197 H 02/05/23 06:12: POC Glucose 147 H Rhythm Strip Rhythm Strip: Sinus Tach Ectopy: PVC(s) Cardiology Labs/Tests Rhythm: EKG: ECHO: Stress Test: Cardiac Cath: PCI: CT Surgery: Holter monitor: EPS: PPM: CXR: Chest CT Scan: Radiography Diagnostic Testing: Radiology Impression Chest X-Ray 02/05/23 05:55 IMPRESSION: No acute cardiopulmonary abnormality. Electronically Signed: Tuan Oliver MD at 5:16 EDT , Physical Exam Const alert, oriented x3 and no apparent distress General Appearance: cooperative HEENT hearing grossly normal bilaterally Head and Scalp: atraumatic Eyes EOMs intact bilaterally Neck General: normal visual inspection Chest inspection of chest normal and palpation of chest normal Resp normal respiratory effort Auscultation: clear to auscultation bilaterally Cardio regular rate, regular rhythm, S1 normal heart sound and S2 normal heart sound Jugular Venous Distention: JVD GI normal to inspection, nondistended, normoactive bowel sounds Extremity normal capillary refill and no pedal edema Peripheral Pulses: Yes pulses 2+ throughout and femoral pulses present Skin no rashes or lesions noted Neuro oriented x3 and CN's II-XII intact bilaterally Psych Appearance: grossly normal and appropriate Assessment & Plan Assessment/Plan (1) HTN (hypertension): PLAN: Patient has a history of hypertension. Blood pressure appears to be under good control at this time I would not recommend that we make any major changes. (2) Second degree AV block, Mobitz type II: PLAN: Patient has a history of second-degree type II AV block. He underwent permanent pacemaker implantation yesterday. Pacemaker is functioning well. Chest x-ray is unremarkable. From the cardiovascular standpoint will discharge for outpatient follow-up. Thank you for allowing me to participate in the care of your patient. Please don't hesitate to call if any issues arise.
--- NOTE | 2023-02-05 09:15 | DCINST_ITS ---
Discharge Instructions Diet Discharge Diet: No restrictions (as you feel able. No excessive stretching. No lifting your arm over your head (keep elbow below shoulder level) until seen for your pacemaker check. Do not lift your elbow away from your side until you are seen for your first visit. Keep the arm sling on if it helps remind you not to lift your arm.) Activity Discharge Activity: May Not Drive May shower in (days): 2 Additional Activity Instructions:: May shower or bathe on [day 3]. Do not scrub the incision or soak in the tub. Just wash with soap and let the water run over the incision. Gently pat dry with towel. Medications: Take your pain medication as directed. Refer to your discharge instruction sheet for a list of medications you are to take. Dressing / Incision Call your doctor if your incision/area has: Continuous Slow Oozing, Sudden Increased Bleeding, Increased Pain/ Swelling, Increased Redness, Foul Smelling Discharge and Swelling at the incision site Call your doctor if you observe: Fever of 101 or Higher, Shortness of breath, Dizziness, Fainting spells, Swelling in the ankles, Chest pain, Prolonged hiccupping and Increased palpitations (irregular heartbeat) Suture Line Care: Avoid Pulling/Pushing and Avoid Pinching/Bending Cleanse incision/area with: Keep Dressing Clean & Dry Additional Dressing/Incision Instructions:: When dressing is removed, wash and dry incision. Keep covered with a light bandage if it is rubbing against your clothing. Do not cover the incision with an airtight bandage. Change the bandage daily. Do not remove steri strips. The strips will fall off on their own. Follow Up Care Please Follow Up With: Júnior Chandra MD When: Pacer follow-up on February 18, 2023 at 2 PM. Test Results: Test results from this visit will be discussed in further detail at your follow- up appointment, if applicable. Discharge Plan Admission Admit Date/Time: 01/27/23 20:41 Attending Provider: Caryl Mcdermott Primary Care Provider: Luis Caldera Consulting Providers: Karen Aly; Olga Lidia Rasheed; Yisel Rendon Discharge Orders/Prescriptions Prescriptions: No Action losartan 50 MG tablet 50 mg PO DAILY Hold Instructions: Hold for 1 week until kidney function returns to normal. atorvastatin 40 MG tablet 40 mg PO QHS warfarin [Jantoven] 5 MG tablet 7.5 mg PO SUTUWETHFRSA Hold Instructions: Hold for 2 more days Patient Comments: blood thinner tamsulosin 0.4 mg capsule 0.4 mg PO QHS Patient Comments: TAKE 1 CAPSULE BY MOUTH EVERYDAY AT BEDTIME warfarin 5 mg tablet 10 mg PO MO Hold Instructions: Hold for 2 more days Patient Comments: 10 MG SATURDAY, 7.5 MG ALL OTHER DAYS. PATIENT HAS INR DRAWN BI-WEEKLY. amlodipine 2.5 mg Tablet 2.5 mg PO DAILY 30 Days Qty: 30 0RF acetaminophen 325 mg Tablet 650 mg PO Q4H PRN PRN (Reason: PAIN AND FEVER) Qty: 0 0RF Patient Comments: PRN PER HALF-WAY MAR melatonin 3 mg Tablet 3 mg PO QHS PRN PRN (Reason: Insomnia) Qty: 1 0RF Patient Comments: PRN PER HALF-WAY MAR. duloxetine [Cymbalta] 60 mg capsule,delayed release(DR/EC) 60 mg PO DAILY cholecalciferol (vitamin D3) 1,250 mcg (50,000 unit) tablet 1,250 mcg PO MO metformin 1,000 mg tablet 1,000 mg PO BID Hold Instructions: Hold for 1 week. insulin lispro [Humalog KwikPen Insulin] 100 unit/mL insulin pen See Protocol subcut [facility] Protocol: 6. Sliding Scale Insulin Custom Condition: mg/dl range Dose/Route: Number of Units Condition: 200-250 Dose/Route: 5 Condition: 251-300 Dose/Route: 8 Condition: 301-350 Dose/Route: 12 Condition: >351 Instruction: NOTIFY MD Protocol Text: Custom Sliding Scale sucralfate 1 gram Tablet 1 g PO 0700,1100,1600 30 Days Qty: 90 0RF sennosides-docusate sodium [Stool Softener-Stimulant Laxat] 8.6-50 mg Tablet 2 tab PO BID PRN (Reason: Constipation) Qty: 0 0RF pantoprazole 40 mg Tablet,Delayed Release (Dr/Ec) 40 mg PO BID 30 Days Qty: 60 2RF Rx Instructions: 40 mg twice daily for 2 months and then once daily ferrous sulfate 325 mg (65 mg iron) tablet,delayed release (DR/EC) 325 mg PO DAILY Qty: 30 2RF ascorbic acid (vitamin C) 500 mg tablet 500 mg PO BID Qty: 60 2RF insulin glargine [Lantus Solostar U-100 Insulin] 100 UNITS/ML insulin pen 15 unit subcut DAILY Qty: 15 0RF memantine 10 mg tablet 10 mg PO QPM 30 Days Qty: 30 0RF Referrals / Follow Up: Luis Caldera MD [Primary Care Provider] -
[2023-02-05 09:20] VITALS: O2SAT 95
[2023-02-05] MEDS: Ascorbic Acid 500 MG Tablet PO (09:30)
[2023-02-05] MEDS: DULoxetine Hcl 60 MG Capsule PO (09:30)
[2023-02-05] MEDS: amLODIPine 2.5 MG Tablet PO (09:30)
[2023-02-05] MEDS: Folic Acid 1 MG Tablet PO (09:30)
[2023-02-05] MEDS: Ferrous Sulfate 300 MG/5 ML UDC PO (09:30)
[2023-02-05] MEDS: Insulin Glargine-YFGN 100 UNIT/ML Pen 12 UNIT SC (09:31)
[2023-02-05 11:51] LABS: Bedside Glucose 163 mg/dL (74-106)
[2023-02-05 12:00] VITALS: BP 123/63; PULSE 72; RESP 18; TEMP 36.6; O2SAT 94
[2023-02-05] MEDS: Insulin Lispro 100 UNIT/ML INSULN.PEN SC (12:28)
--- NOTE | 2023-02-05 12:32 | PCM.TXEXTCAR ---
Diet Diet Order/Speech Therapy: 02/04/23 15:30 Diet: Cardiac - Heart Healthy Food consistency:: Mechanical (Minced/Moist) Liquid Consistency:: Regular/Thin Type of Dietary Supplement:: Ensure Pudding w/ L & D Is pt able to select menu?: No Diet Comments: Liquids by tsp ONLY, 1:1 super., alt. bites/sips, inter. cough/re-swallow Routine Orders/Code Status Enema Type: Fleetz Enema Frequency: Daily PRN Suppository Type: Dulcolax 10mg Suppository Frequency: Daily PRN O2 Frequency: PRN Keep PO Greater than or Equal to (%): 90 Wound(s) L chest wall: Wound Type: Surgical Incision Therapies Physical Therapy: Eval and Treat Occupational Therapy: Eval and Treat Problem/Diagnosis (1) HTN (hypertension): Status: Chronic Code(s): I10 - Essential (primary) hypertension (2) Second degree AV block, Mobitz type II: Status: Acute Code(s): I44.1 - Atrioventricular block, second degree Allergies/Procedures Done in Hospital Allergies propofol Adverse Reaction (Verified 01/27/23 18:06) Other GETS AGGRESSIVE Procedures: 2-D Echocardiogram, EGD and - (pacemaker) Type of Care/Length of Stay Estimated LOS: Convalescent Care Less Than 30 days Type of Care Needed: Skilled Rehab Potential: Fair Prognosis: Fair Additional Orders/Day of Discharge Day of Discharge: 02/05/23 Dietary and Speech Recommendations Dietitian Recommendations/Changes: Continue liberalized regular diet with consistency as per ABSORPTION OPERATOR. Will continue ensure pudding BID w/ lunch and dinner as tolerated. Consider TF support if PO/weight decline. Follow Up Care Please Follow Up With: Júnior Chandra MD Discharge Plan Admission Admit Date/Time: 01/27/23 20:41 Primary Reason for Your Visit: recurrent GI bleed, 2nd degree AV block Attending Provider: Caryl Mcdermott Primary Care Provider: Luis Caldera Consulting Providers: Karen Aly; Olga Lidia Rasheed; Yisel Rendon Instructions Patient Instructions: Peptic Ulcer, Heart Block 2nd Degree Discharge Orders/Prescriptions Prescriptions: New sucralfate 1 gram Tablet 1 g PO 0700,1100,1600 Qty: 90 2RF ferrous sulfate 300 mg (60 mg iron)/5 mL liquid 300 mg PO DAILY Qty: 500 2RF pantoprazole 40 mg tablet,delayed release (DR/EC) 40 mg PO BID Qty: 60 2RF Continued losartan 50 MG tablet 50 mg PO DAILY Hold Instructions: Hold for 1 week until kidney function returns to normal. atorvastatin 40 MG tablet 40 mg PO QHS warfarin [Jantoven] 5 MG tablet 7.5 mg PO SUTUWETHFRSA Hold Instructions: Hold for 2 more days Patient Comments: blood thinner tamsulosin 0.4 mg capsule 0.4 mg PO QHS Patient Comments: TAKE 1 CAPSULE BY MOUTH EVERYDAY AT BEDTIME warfarin 5 mg tablet 10 mg PO MO Hold Instructions: Hold for 2 more days Patient Comments: 10 MG SATURDAY, 7.5 MG ALL OTHER DAYS. PATIENT HAS INR DRAWN BI-WEEKLY. amlodipine 2.5 mg Tablet 2.5 mg PO DAILY 30 Days Qty: 30 0RF acetaminophen 325 mg Tablet 650 mg PO Q4H PRN PRN (Reason: PAIN AND FEVER) Qty: 0 0RF Patient Comments: PRN PER SENIOR LIVING MAR melatonin 3 mg Tablet 3 mg PO QHS PRN PRN (Reason: Insomnia) Qty: 1 0RF Patient Comments: PRN PER SENIOR LIVING MAR. duloxetine [Cymbalta] 60 mg capsule,delayed release(DR/EC) 60 mg PO DAILY cholecalciferol (vitamin D3) 1,250 mcg (50,000 unit) tablet 1,250 mcg PO MO metformin 1,000 mg tablet 1,000 mg PO BID Hold Instructions: Hold for 1 week. insulin lispro [Humalog KwikPen Insulin] 100 unit/mL insulin pen See Protocol subcut [facility] Protocol: 6. Sliding Scale Insulin Custom Condition: mg/dl range Dose/Route: Number of Units Condition: 200-250 Dose/Route: 5 Condition: 251-300 Dose/Route: 8 Condition: 301-350 Dose/Route: 12 Condition: >351 Instruction: NOTIFY MD Protocol Text: Custom Sliding Scale sennosides-docusate sodium [Stool Softener-Stimulant Laxat] 8.6-50 mg Tablet 2 tab PO BID PRN (Reason: Constipation) Qty: 0 0RF ascorbic acid (vitamin C) 500 mg tablet 500 mg PO BID Qty: 60 2RF insulin glargine [Lantus Solostar U-100 Insulin] 100 UNITS/ML insulin pen 15 unit subcut DAILY Qty: 15 0RF memantine 10 mg tablet 10 mg PO QPM 30 Days Qty: 30 0RF Discontinued sucralfate 1 gram Tablet 1 g PO 0700,1100,1600 30 Days Qty: 90 0RF pantoprazole 40 mg Tablet,Delayed Release (Dr/Ec) 40 mg PO BID 30 Days Qty: 60 2RF Rx Instructions: 40 mg twice daily for 2 months and then once daily ferrous sulfate 325 mg (65 mg iron) tablet,delayed release (DR/EC) 325 mg PO DAILY Qty: 30 2RF Referrals / Follow Up: Luis Caldera MD [Primary Care Provider] - Within 2 Weeks Júnior Chandra MD [Med Staff - Active Staff] - Within 2 Weeks Liu Hackett DO [Med Staff - Active Staff] - Within 2 Weeks Disposition Disposition (needs filled in before D/C Order can be placed): [facility]
--- NOTE | 2023-02-05 12:34 | DS.PCM_ITS ---
Providers Date of Admission: 01/27/23 Date of Discharge: 02/05/23 Primary Care Physician: Dr. Luis Caldera MD Consultations 01/27/23 21:52 Consult: Gastroenterology Routine Consulting Provider: [facility] Reason for Consult: ? Recurrent GI bleed EMERGENT Consult: No Notified: Yes Date Notified: 01/27/23 Time Notified: 21:19 Method of Notification: ED Physician Initiated 01/30/23 10:46 Consult: Cardiology Routine Consulting Provider: Olga Lidia Rasheed Reason for Consult: Symptomatic bradycardia EMERGENT Consult: No Notified: Yes Date Notified: 01/30/23 Time Notified: 10:54 Method of Notification: Text Reason For Visit: RECURRENT GI BLEED Diagnosis Discharge Diagnosis (1) HTN (hypertension): Status: Chronic Code(s): I10 - Essential (primary) hypertension (2) Second degree AV block, Mobitz type II: Status: Acute Code(s): I44.1 - Atrioventricular block, second degree Medications at Discharge Home Medications losartan 50 mg tablet 50 mg PO DAILY blood pressure 03/24/18 atorvastatin 40 mg tablet 40 mg PO QHS cholesterol 05/22/18 warfarin 5 mg tablet (Jantoven) 7.5 mg PO SUTUWETHFRSA anticoagulant 05/22/18 tamsulosin 0.4 mg capsule 0.4 mg PO QHS PROSTATE 03/02/22 warfarin 5 mg tablet 10 mg PO MO BLOOD THINNER 03/02/22 amlodipine 2.5 mg tablet 2.5 mg PO DAILY BP 30 days #30 tabs 07/11/22 acetaminophen 325 mg tablet 650 mg (2 x 325 mg) PO Q4H PRN PRN PAIN AND FEVER #0 tabs 01/08/23 melatonin 3 mg tablet 3 mg PO QHS PRN PRN Insomnia #1 TAB 01/08/23 cholecalciferol (vitamin D3) 1,250 mcg (50,000 unit) tablet 1,250 mcg PO MO SUPPLEMENT 01/21/23 duloxetine 60 mg capsule,delayed release (Cymbalta) 60 mg PO DAILY DEPRESSION 01/21/23 insulin lispro 100 unit/mL subcutaneous pen (Humalog KwikPen (U-100) Insulin) See Protocol subcut ACHS DM 01/21/23 metformin 1,000 mg tablet 1,000 mg PO BID DM 01/21/23 ascorbic acid (vitamin C) 500 mg tablet 500 mg PO BID #60 tabs 01/26/23 insulin glargine 100 unit/mL (3 mL) subcutaneous pen (Lantus Solostar U-100 Insulin) 15 unit (0.15 mL) subcut DAILY diabetes #15 mL 01/26/23 memantine 10 mg tablet 10 mg PO QPM 30 days #30 tabs 01/26/23 sennosides 8.6 mg-docusate sodium 50 mg tablet (Stool Softener-Stimulant Laxative) 2 tab PO BID PRN Constipation #0 tabs 01/26/23 ferrous sulfate 300 mg (60 mg iron)/5 mL oral liquid 300 mg (5 mL) PO DAILY #500 mL 02/05/23 pantoprazole 40 mg tablet,delayed release 40 mg PO BID #60 tabs 02/05/23 sucralfate 1 gram tablet 1 g PO 0700,1100,1600 #90 tabs 02/05/23 Hospital Course Operations None Procedures - (pacemaker insertion) Summary of Care Provided Minutes Spent on Discharge: 45 Hospital Course: Patient is a 77 y/o male with a PMH as outlined who was admitted via the ED on 02/05/2023 with a complaint of bloody stools whilst at his SNF. He had his stool checked for occult blood whilst at his SNF. He had had a history of recurrent GI bled in devonte past. On admission, CT of the abdomen and pelvis done was largely unremarkable. 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 Patient was placed on Protonix drip and sucralfate. GI was consulted. He was also started on IV Zosyn due to concerns for pneumonia as chest imaging showed patchy posterior left lower lobe airspace disease. GI evaluated him and recommended that he would need repeat upper endoscopy in about 8 to 12 weeks to ensure healing and he was switched to p.o. pantoprazole after the rectal bleeding stopped. He was noted to be having intermittent bradycardia. He had had this initially and it was felt that it was due to octreotide drip which was discontinued. He had 2D echo which showed EF of 55 to 60% and normal left ventricular systolic function. Cardiology was consulted and initially plan was to follow-up on outpatient basis for consideration for pacemaker. However due to persistent bradycardia cardiology saw him and decided on pacemaker insertion. He had pacemaker inserted on 02/04/2023. Patient remained stable and was discharged on 02/05/2023 on p.o. pantoprazole 40 mg twice daily as well as p.o. sucralfate. He is to follow-up with his primary care doctor and is also to follow-up with cardiology as well as gastroenterology. I did discuss with Dr. Hackett prior to discharge if patient was safe to go back on his Coumadin. Gastroenterology recommended that patient could safely go back on his Coumadin and if rectal bleeding recurred, coumadin was to be held. Patient seen and examined prior to discharge. He had no active complaints and had an uneventful night. Review of systems otherwise negative. Labs and vitals reviewed. Home medication reviewed and reconciled. Physical Exam Const alert, oriented x3 and no apparent distress General Appearance: cooperative, comfortable and well kempt Orientation / Consciousness: awake Exam Limitations: no limitations HEENT normocephalic, head/scalp atraumatic, hearing grossly normal bilaterally and moist oral mucous membranes Mouth: oral and palatal mucosa normal Eyes PERRL, EOMs intact bilaterally and conjunctivae normal Neck no lymphadenopathy, supple and no JVD Resp normal respiratory effort, no retractions, no use of accessory muscles and clear to auscultation bilaterally Cardio regular rate, regular rhythm, S1 normal heart sound, S2 normal heart sound and no murmurs Cardio Narrative: intact dressing over pacemaker GI normal to inspection, nondistended, normoactive bowel sounds, soft to palpation, non-tender and non-distended Extremity normal to inspection, full ROM and no clubbing, cyanosis or edema Skin no rashes or lesions noted, no wounds and skin turgor normal Neuro CN's II-XII intact bilaterally, moves all extremities and no focal motor deficits Sensorium / Orientation: awake and alert Motor Exam: strength 5/5 throughout Psych affect normal Weight / BMI Weight Weight: 231 lb 14.821 oz Body Mass Index (BMI) 30.6 ABG / Lab / Microbiology Data 02/04/23 05:31 02/04/23 05:31 Laboratory: Laboratory Results - last 24 hr 02/04/23 16:36: POC Glucose 153 H 02/04/23 21:52: POC Glucose 197 H 02/05/23 06:12: POC Glucose 147 H 02/05/23 11:30: POC Glucose 163 H Microbiology: Microbiology 01/28/23 13:39 Mucosa - Nose Respiratory Panel (PCR) - Final 01/27/23 23:00 Urine, Clean Catch Legionella Antigen - Final 01/27/23 23:00 Urine, Clean Catch Streptococcus pneumoniae Antigen (M - Final Radiography Diagnostic Testing: Radiology Impression Chest X-Ray 02/05/23 05:55 IMPRESSION: No acute cardiopulmonary abnormality. Electronically Signed: Tuan Oliver MD at 5:16 EDT , D/C Instructions Discharge Diet: No restrictions (as you feel able. No excessive stretching. No lifting your arm over your head (keep elbow below shoulder level) until seen for your pacemaker check. Do not lift your elbow away from your side until you are seen for your first visit. Keep the arm sling on if it helps remind you not to lift your arm.) May shower in (days): 2 Weight Bearing Status: Weight bearing as tolerated Additional Activity Instructions: May shower or bathe on [day 3]. Do not scrub the incision or soak in the tub. Just wash with soap and let the water run over the incision. Gently pat dry with towel. Medications: Take your pain medication as directed. Refer to your discharge instruction sheet for a list of medications you are to take. Call your doctor if your incision/area has: Continuous Slow Oozing, Sudden Increased Bleeding, Increased Pain/ Swelling, Increased Redness, Foul Smelling Discharge and Swelling at the incision site Call your doctor if you observe: Fever of 101 or Higher, Shortness of breath, Dizziness, Fainting spells, Swelling in the ankles, Chest pain, Prolonged hiccupping and Increased palpitations (irregular heartbeat) Suture Line Care: Avoid Pulling/Pushing and Avoid Pinching/Bending Cleanse incision/area with: Keep Dressing Clean & Dry Additional Dressing/Incision Instructions: When dressing is removed, wash and dry incision. Keep covered with a light bandage if it is rubbing against your clothing. Do not cover the incision with an airtight bandage. Change the bandage daily. Do not remove steri strips. The strips will fall off on their own. Please Follow Up With: Júnior Chandra MD When: Pacer follow-up on February 18, 2023 at 2 PM. Meaningful Use Info Meaningful Use Diagnoses (Choose all that apply): None applicable Discharge Plan Admission Admit Date/Time: 01/27/23 20:41 Primary Reason for Your Visit: recurrent GI bleed, 2nd degree AV block Attending Provider: Caryl Mcdermott Primary Care Provider: Luis Caldera Consulting Providers: Karen Aly; Olga Lidia Rasheed; Yisel Rendon Instructions Patient Instructions: Peptic Ulcer, Heart Block 2nd Degree Discharge Orders/Prescriptions Prescriptions: New sucralfate 1 gram Tablet 1 g PO 0700,1100,1600 Qty: 90 2RF ferrous sulfate 300 mg (60 mg iron)/5 mL liquid 300 mg PO DAILY Qty: 500 2RF pantoprazole 40 mg tablet,delayed release (DR/EC) 40 mg PO BID Qty: 60 2RF Continued losartan 50 MG tablet 50 mg PO DAILY Hold Instructions: Hold for 1 week until kidney function returns to normal. atorvastatin 40 MG tablet 40 mg PO QHS warfarin [Jantoven] 5 MG tablet 7.5 mg PO SUTUWETHFRSA Hold Instructions: Hold for 2 more days Patient Comments: blood thinner tamsulosin 0.4 mg capsule 0.4 mg PO QHS Patient Comments: TAKE 1 CAPSULE BY MOUTH EVERYDAY AT BEDTIME warfarin 5 mg tablet 10 mg PO MO Hold Instructions: Hold for 2 more days Patient Comments: 10 MG SATURDAY, 7.5 MG ALL OTHER DAYS. PATIENT HAS INR DRAWN BI-WEEKLY. amlodipine 2.5 mg Tablet 2.5 mg PO DAILY 30 Days Qty: 30 0RF acetaminophen 325 mg Tablet 650 mg PO Q4H PRN PRN (Reason: PAIN AND FEVER) Qty: 0 0RF Patient Comments: PRN PER INTERMEDIATE MAR melatonin 3 mg Tablet 3 mg PO QHS PRN PRN (Reason: Insomnia) Qty: 1 0RF Patient Comments: PRN PER INTERMEDIATE MAR. duloxetine [Cymbalta] 60 mg capsule,delayed release(DR/EC) 60 mg PO DAILY cholecalciferol (vitamin D3) 1,250 mcg (50,000 unit) tablet 1,250 mcg PO MO metformin 1,000 mg tablet 1,000 mg PO BID Hold Instructions: Hold for 1 week. insulin lispro [Humalog KwikPen Insulin] 100 unit/mL insulin pen See Protocol subcut ACHS Protocol: 6. Sliding Scale Insulin Custom Condition: mg/dl range Dose/Route: Number of Units Condition: 200-250 Dose/Route: 5 Condition: 251-300 Dose/Route: 8 Condition: 301-350 Dose/Route: 12 Condition: >351 Instruction: NOTIFY MD Protocol Text: Custom Sliding Scale sennosides-docusate sodium [Stool Softener-Stimulant Laxat] 8.6-50 mg Tablet 2 tab PO BID PRN (Reason: Constipation) Qty: 0 0RF ascorbic acid (vitamin C) 500 mg tablet 500 mg PO BID Qty: 60 2RF insulin glargine [Lantus Solostar U-100 Insulin] 100 UNITS/ML insulin pen 15 unit subcut DAILY Qty: 15 0RF memantine 10 mg tablet 10 mg PO QPM 30 Days Qty: 30 0RF Discontinued sucralfate 1 gram Tablet 1 g PO 0700,1100,1600 30 Days Qty: 90 0RF pantoprazole 40 mg Tablet,Delayed Release (Dr/Ec) 40 mg PO BID 30 Days Qty: 60 2RF Rx Instructions: 40 mg twice daily for 2 months and then once daily ferrous sulfate 325 mg (65 mg iron) tablet,delayed release (DR/EC) 325 mg PO DAILY Qty: 30 2RF Referrals / Follow Up: Luis Caldera MD [Primary Care Provider] - Within 2 Weeks Júnior Chandra MD [Med Staff - Active Staff] - Within 2 Weeks Liu Hackett DO [Med Staff - Active Staff] - Within 2 Weeks Disposition Disposition (needs filled in before D/C Order can be placed): Long-Term Facility Charges/Coding Visit Charges Inpatient E&M: 99674 Disch Hosp >30min
--- NOTE | 2023-02-05 13:07 | CASEMGMT ---
Discharge Planning Discharge orders, signed med list, and transport time sent to [facility] via [facility]. [facility] will tranport patient by cot at 3p. Nursing, SW, and patients notified. Tamika Encinas, Discharge Planning Asst.
--- NOTE | 2023-02-05 13:21 | CASEMGMT ---
Discharge Planning Covid results sent to [facility] via [facility]. Tamika Encinas, Discharge Planning Asst.
--- NOTE | 2023-02-05 13:35 | PHA.DC_ITS ---
Pharmacy [place] Med Reconciliation Pharmacy Service has performed discharge medication reconciliation for this patient. The patient's discharge medication list was reviewed for discrepancies and discrepancies were resolved. Medications at Discharge Home Medications losartan 50 mg tablet 50 mg PO DAILY blood pressure 03/24/18 atorvastatin 40 mg tablet 40 mg PO QHS cholesterol 05/22/18 warfarin 5 mg tablet (Jantoven) 7.5 mg PO SUTUWETHFRSA anticoagulant 05/22/18 tamsulosin 0.4 mg capsule 0.4 mg PO QHS PROSTATE 03/02/22 warfarin 5 mg tablet 10 mg PO MO BLOOD THINNER 03/02/22 amlodipine 2.5 mg tablet 2.5 mg PO DAILY BP 30 days #30 tabs 07/11/22 acetaminophen 325 mg tablet 650 mg (2 x 325 mg) PO Q4H PRN PRN PAIN AND FEVER #0 tabs 01/08/23 melatonin 3 mg tablet 3 mg PO QHS PRN PRN Insomnia #1 TAB 01/08/23 cholecalciferol (vitamin D3) 1,250 mcg (50,000 unit) tablet 1,250 mcg PO MO SUPP LEMENT 01/21/23 duloxetine 60 mg capsule,delayed release (Cymbalta) 60 mg PO DAILY DEPRESSION 01/21/23 insulin lispro 100 unit/mL subcutaneous pen (Humalog KwikPen (U-100) Insulin) See Protocol subcut ACHS DM 01/21/23 metformin 1,000 mg tablet 1,000 mg PO BID DM 01/21/23 ascorbic acid (vitamin C) 500 mg tablet 500 mg PO BID #60 tabs 01/26/23 insulin glargine 100 unit/mL (3 mL) subcutaneous pen (Lantus Solostar U-100 Insulin) 15 unit (0.15 mL) subcut DAILY diabetes #15 mL 01/26/23 memantine 10 mg tablet 10 mg PO QPM 30 days #30 tabs 01/26/23 sennosides 8.6 mg-docusate sodium 50 mg tablet (Stool Softener-Stimulant Laxative) 2 tab PO BID PRN Constipation #0 tabs 01/26/23 ferrous sulfate 300 mg (60 mg iron)/5 mL oral liquid 300 mg (5 mL) PO DAILY #500 mL 02/05/23 pantoprazole 40 mg tablet,delayed release 40 mg PO BID #60 tabs 02/05/23 sucralfate 1 gram tablet 1 g PO 0700,1100,1600 #90 tabs 02/05/23
[2023-02-05] MEDS: Acetaminophen 325 MG Tablet 650 MG PO (14:57)
[2023-02-05 15:10] VITALS: BP 131/77; PULSE 85; RESP 18; TEMP 36.3; O2SAT 94
== END 2023-02-05 16:02 | disposition skilled nursing facility (03) | DRG 981 ==
LOC: ED 20:40 → PCU 21:08
PROVIDERS: Internal Medicine; Internal Medicine Gastroenterology; Admitting Provider Family Medicine; Emergency Provider Student in an Organized Health Care Education/Training Program; PCP Family Medicine; Visit Provider Student in an Organized Health Care Education/Training Program
PROC: 0DJ08ZZ Inspection of Upper Intestinal Tract, Via Natural or Artificial Opening Endoscopic (ICD-10-PCS; CPT 43235; principal; 2023-02-01 11:15)
DX: K26.4 Chronic or unspecified duodenal ulcer with hemorrhage (principal); J18.9 Pneumonia, unspecified organism; N17.9 Acute kidney failure, unspecified; D62 Acute posthemorrhagic anemia; I49.5 Sick sinus syndrome; D63.1 Anemia in chronic kidney disease; I44.1 Atrioventricular block, second degree; E11.22 Type 2 diabetes mellitus with diabetic chronic kidney disease; I48.0 Paroxysmal atrial fibrillation; E11.40 Type 2 diabetes mellitus with diabetic neuropathy, unspecified; Z79.4 Long term (current) use of insulin; N18.31 Chronic kidney disease, stage 3a; F03.90 Unspecified dementia, unspecified severity, without behavioral disturbance, psychotic disturbance, mood disturbance, and anxiety; K22.2 Esophageal obstruction; E78.5 Hyperlipidemia, unspecified; I12.9 Hypertensive chronic kidney disease with stage 1 through stage 4 chronic kidney disease, or unspecified chronic kidney disease; K44.9 Diaphragmatic hernia without obstruction or gangrene; K63.5 Polyp of colon; I25.2 Old myocardial infarction; F32.A Depression, unspecified; F41.9 Anxiety disorder, unspecified; D50.8 Other iron deficiency anemias; N40.0 Benign prostatic hyperplasia without lower urinary tract symptoms; E66.9 Obesity, unspecified; Z68.30 Body mass index [BMI] 30.0-30.9, adult; Z79.01 Long term (current) use of anticoagulants; Z79.84 Long term (current) use of oral hypoglycemic drugs; Z79.899 Other long term (current) drug therapy; Z86.711 Personal history of pulmonary embolism; Z86.79 Personal history of other diseases of the circulatory system; Z86.16 Personal history of COVID-19
CPT/HCPCS: 33208; 36415; 36569; 71045; 71046; 71047; 71275; 74174; 74230; 80048; 80053; 80202; 82607; 82728; 82746; 82962; 83540; 83550; 83615; 83690; 83735; 84100; 84145; 85014; 85018; 85025; 85045; 85610; 86850; 86900; 86901; 86920; 87449; 87633; 87641; 87811; 88305; 92526; 92610; 92611; 93005; 94640; 94668; 97110; 97116; 97162; 97166; 97530; 97535; 97802; 97803; 99152; 99153; 99252; 99285; J7030; J7040; J7050; P9016; Q9967; A4216; C1894; G0463; J2405; J2916; J3490

== ENCOUNTER 2023-02-10 21:20 | Emergency (ER) | payer MEDICARE, OTHER, SELFPAY ==
[2023-02-10 21:23] VITALS: BP 114/65; PULSE 118; RESP 33; TEMP 37.1; O2SAT 93; BMI 30.9
--- NOTE | 2023-02-10 21:25 | EKG12_ITS ---
Test Reason : ALTERED LOC Blood Pressure : / mmHG Vent. Rate : 116 BPM Atrial Rate : 116 BPM P-R Int : 000 ms QRS Dur : 182 ms QT Int : 444 ms P-R-T Axes : 013 -79 097 degrees QTc Int : 617 ms Ventricular-paced rhythm Abnormal ECG Confirmed by ANGEL LUIS COLBERT, CATHI ([id number]), film or videotape editor SOFIA CAMERON ([id number]) on 02/14/2023 8:45:05 AM Referred By: SAMUEL Confirmed By:ASHLEY HEIN MD
[2023-02-10 22:23] LABS: Absolute Lymphocyte Count 0.46 X10^3/uL (0.83-4.51); Absolute Neutrophil Count 9.2 X10^3/uL (2.0-7.7); Basophil# 0.01 X10^3/uL; Basophil% 0.1 % (0-1); Eosinophil# 0.02 X10^3/uL; Eosinophils% 0.2 % (0-5); Hematocrit 28.1 % (40-54); Hemoglobin 8.8 g/dL (13.0-16.5); Lymphocyte # 0.46 X10^3/ul (0.83-4.51); Lymphocyte % 4.3 % (19-41); Mean Corp Hgb Conc 31.3 g/dL (32-36); Mean Corpuscular Hgb 27.5 pg (27.0-32.0); Mean Corpuscular Volume 87.8 fL (80-94); Mean Platelet Vol. 9.3 fl (6.2-12.0); Monocyte# 1.06 X10^3/uL; Monocyte% 9.8 % (0-10); NRBC Flagged by Analyzer 0 % (0-5); Neutrophil # 9.16 X10^3/uL (2.7-7.7); Neutrophil % 84.8 % (47-70); POSITIVE DIFFERENTIAL YES; Platelet Count 189 K/mm3 (150-450); RBC Distribution Width CV 17.3 % (11.6-14.6); RBC Distribution Width SD 55.2 fl (35.1-43.9); White Blood Count 10.8 K/mm3 (4.4-11.0)
--- NOTE | 2023-02-10 22:24 | EDS_ITS ---
HPI History of Present Illness Chief Complaint: Alt LOC Informant: patient and spouse/S.O. Narrative Narrative: Patient is a 77-year-old male with past medical history of sick sinus syndrome status post pacemaker placement on Coumadin secondary to previous pulmonary embolism and hypertension. He was recently admitted to the hospital for his pacemaker placement roughly 1 week ago stayed 1 night in the hospital and was discharged to retirement on Saturday. reports that just today he has not been his normal self. They report that at the retirement he had a low-grade fever of 100.9 and they concern for secondary infection based on this and therefore patient was sent to the hospital for evaluation. Upon arrival to the ER the patient is awake he is alert to self and he states he has no complaints. [facility]SH [facility] Medical History Amputation of right great toe Anemia Aortic aneurysm without rupture COVID-19 Diabetes Diabetic neuropathy HLD (hyperlipidemia) HTN (hypertension) Hyperkalemia Lactic acidosis Leukocytosis NSTEMI, initial episode of care Osteomyelitis Presence of cardiac pacemaker Pulmonary emboli RBBB (right bundle 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) Second degree AV block, Mobitz type II Ulcer of right great toe due to diabetes mellitus Upper gastrointestinal bleed Ureterolithiasis Valvular heart disease Home Medications losartan 50 mg tablet 50 mg PO DAILY blood pressure 03/24/18 [History Last Taken 01/20/23] atorvastatin 40 mg tablet 40 mg PO QHS cholesterol 05/22/18 [History Last Taken 01/20/23] warfarin 5 mg tablet (Jantoven) 7.5 mg PO SUTUWETHFRSA anticoagulant 05/22/18 [History Last Taken 01/20/23] tamsulosin 0.4 mg capsule 0.4 mg PO QHS PROSTATE 03/02/22 [History Last Taken 01/20/23] warfarin 5 mg tablet 10 mg PO MO BLOOD THINNER 03/02/22 [History Last Taken 01/02/23] amlodipine 2.5 mg tablet 2.5 mg PO DAILY BP 30 days #30 tabs 07/11/22 [Rx Last Taken 01/20/23] acetaminophen 325 mg tablet 650 mg (2 x 325 mg) PO Q4H PRN PRN PAIN AND FEVER #0 tabs 01/08/23 [Rx Last Taken 01/19/23] cholecalciferol (vitamin D3) 1,250 mcg (50,000 unit) tablet 1,250 mcg PO MO SUPPLEMENT 01/21/23 [History Last Taken 01/14/23] duloxetine 60 mg capsule,delayed release (Cymbalta) 60 mg PO DAILY DEPRESSION 01/21/23 [History Last Taken 01/20/23] insulin lispro 100 unit/mL subcutaneous pen (Humalog KwikPen (U-100) Insulin) See Protocol subcut ACHS DM 01/21/23 [History Last Taken 01/21/23] metformin 1,000 mg tablet 1,000 mg PO BID DM 01/21/23 [History Last Taken 01/20/23] ascorbic acid (vitamin C) 500 mg tablet 500 mg PO BID #60 tabs 01/26/23 [Rx Last Taken Unknown] insulin glargine 100 unit/mL (3 mL) subcutaneous pen (Lantus Solostar U-100 Insulin) 15 unit (0.15 mL) subcut DAILY diabetes #15 mL 01/26/23 [Rx Last Taken 01/20/23] memantine 10 mg tablet 10 mg PO QPM 30 days #30 tabs 01/26/23 [Rx Last Taken Unknown] sennosides 8.6 mg-docusate sodium 50 mg tablet (Stool Softener-Stimulant Laxative) 2 tab PO BID PRN Constipation #0 tabs 01/26/23 [Rx Last Taken Unknown] ferrous sulfate 300 mg (60 mg iron)/5 mL oral liquid 300 mg (5 mL) PO DAILY #500 mL 02/05/23 [Rx Last Taken Unknown] pantoprazole 40 mg tablet,delayed release 40 mg PO BID #60 tabs 02/05/23 [Rx Last Taken Unknown] sucralfate 1 gram tablet 1 g PO 0700,1100,1600 #90 tabs 02/05/23 [Rx Last Taken Unknown] melatonin 3 mg tablet 3 mg PO QHS Insomnia 02/10/23 [History Last Taken Unknown] menthol 5 % topical gel (Biofreeze (menthol)) 1 ea topical BID 02/10/23 [History Last Taken Unknown] cephalexin 500 mg capsule 500 mg PO TID 7 days #21 caps 02/11/23 [Rx Last Taken Unknown] Allergy/AdvReac Type Severity Reaction Status Date / Time pantoprazole AdvReac NEEDS Verified 02/10/23 21:29 FOLLOW-UP propofol AdvReac Other Verified 02/10/23 21:29 Family History Mother Heart disease Diabetes Hypertension Father Heart disease Surgical History (Updated 02/03/23 @ 00:10 by Background Gloria) H/O aortic valve repair History of foot surgery History of thoracic aortic aneurysm repair Hx of abdominal surgery Social History housing: retirement current occupational status: retired Smoking Status: Never smoker alcohol intake: never substance use type: does not use ROS ROS ED Constitutional Constitutional ED: Denies chills or fever(s) ENT ENT ED: Denies sore throat Cardiovascular Cardiovascular: Denies chest pain Respiratory/Chest Respiratory/Chest: Denies cough or dyspnea Gastrointestinal Gastrointestinal: Denies abdominal pain, diarrhea, nausea or vomiting Genitourinary Genitourinary ED: Denies dysuria Musculoskeletal Musculoskeletal: Denies myalgias Integumentary Denies rash Neurologic Neurologic: Denies headache(s) Hematologic/Lymphatic Hematologic/Lymphatic: Reports easy bleeding and easy bruising EXAM Physical Exam Const Vital Signs: 02/10/23 21:23 02/10/23 21:29 02/10/23 22:27 Temperature 98.7 F 98.5 F Temperature Source Oral Oral Pulse Rate 118 H 85 Respiratory Rate 33 H 28 H Respiratory Effort Normal Non-Labored Respiratory Pattern Normal Blood Pressure 114/65 113/69 Blood Pressure Mean 81 83 Pulse Ox 93 94 Oxygen Delivery Method Room Air Room Air 02/11/23 00:00 02/11/23 00:58 Temperature 98.6 F 98.4 F Temperature Source Oral Pulse Rate 74 74 Respiratory Rate 25 H 26 H Respiratory Effort Respiratory Pattern Blood Pressure 119/67 124/62 H Blood Pressure Mean 84 Pulse Ox 94 95 Oxygen Delivery Method Room Air Positive well nourished and well developed General Appearance ED: well developed and pallor HEENT Reports moist mucous membranes HEENT Narrative: No signs of secondary infection noted in the posterior pharynx Eyes PERRL and EOMs intact bilaterally General Eye ED: Yes pale conjunctiva; Negative for scleral icterus Neck supple Neck Narrative: No nuchal rigidity or meningeal signs Chest Wall palpation of chest normal Resp Resp Narrative: Breath sounds are diminished throughout but overall clear to auscultation. Patient does have tachypnea present but no nasal flaring retractions or accessory muscle use Cardio regular rate and regular rhythm GI normal to inspection, nondistended, normoactive bowel sounds, non-tender, non- distended and no masses GI Narrative: No voluntary guarding or rigidity. No pulsatile mass or fluid wave Auscultation: normoactive bowel sounds Palpation: soft Extremity normal to inspection Extremity Narrative: No asymmetric edema no pitting edema negative Homans' sign bilaterally Neuro CN's II-XII intact bilaterally Neuro Narrative: Patient is awake and alert to self he is disoriented to place and time however other than the disorientation there is no facial droop slurred speech or extremity weakness. Patient will receive an NIH stroke scale score of 1 based on his confusion Sensorium / Orientation: alert Psych mental status grossly normal Skin no rashes or lesions noted Skin Narrative: Capillary refills less than 3 seconds Recent surgical wound is clean dry and intact without secondary changes to suggest infection General Skin Exam: pallor MDM MDM MDM Narrative Medical decision making narrative: Patient presented to the ER with stable vitals. He was awake and alert to person only and disoriented to year and place. This could be related to his underlying history of dementia but states that he was not eating today and that is abnormal for him. With his recent hospitalization there is concern he is developed a secondary infection leading to delirium so basic blood work was ordered. Lab work showed that he has changes consistent with UTI but there are no signs of hepatic encephalopathy acute kidney injury or severe electrolyte derangement. Chest x-ray also revealed no acute lung pathology such as pneumonia. Blood cultures were obtained as patient had a recent surgery but the surgical site looks clean dry and intact without secondary changes to suggest infection. As patient was just having confusion and not a true focal neurologic deficit I have low concern for an acute CVA and there is no need for head CT. As the patient's work-up shows UTI without findings to suggest urosepsis I do not feel he needs admitted to the hospital and we will treat him with oral antibiotics on an outpatient basis. Plan of care was discussed with the hiren ent's she is agreeable to it History & Record Review Discussion w/independent historian: Patient and Significant other Lab Data Attestation: I reviewed the patient's lab results. Labs: Laboratory Results - last 24 hr 02/10/23 02/10/2323 21:35 22:19 22:40 WBC 10.8 RBC 3.20 L Hgb 8.8 L Hct 28.1 L MCV 87.8 MCH 27.5 MCHC 31.3 L RDW Std Deviation 55.2 H RDW Coeff of Nathaniel 17.3 H Plt Count 189 MPV 9.3 Immature Gran % (Auto) 0.800 Neut % (Auto) 84.8 H Lymph % (Auto) 4.3 L Sampson % (Auto) 9.8 Eos % (Auto) 0.2 Baso % (Auto) 0.1 Absolute Neuts (auto) 9.2 H Absolute Lymphs (auto) 0.46 L Nucleated RBC % 0 Differential Comment SCANNED PT 17.5 H INR 1.4 APTT 42.1 H Sodium 136 Potassium 3.7 Chloride 103 Carbon Dioxide 24.0 Anion Gap 9 BUN 26 H Creatinine 1.09 Estim Creat Clear Calc 66.18 Est GFR (MDRD) Af Amer 85 Est GFR (MDRD) Non-Af 70 BUN/Creatinine Ratio 23.9 H Glucose 158 H Lactic Acid Calcium 8.3 L Total Bilirubin 0.90 Direct Bilirubin 0.43 H AST 10 L ALT 18 Alkaline Phosphatase 100 Total Protein 5.6 L Albumin 2.3 L Globulin 3.3 Procalcitonin 1.43 H Urine Color Yellow Urine Clarity Sl. Cloudy Urine pH 5.0 Ur Specific [place] 1.015 Urine Protein 100 H Urine Glucose (UA) Normal Urine Ketones 5 H Urine Occult Blood 250 H Urine Nitrite Negative Urine Bilirubin Negative Urine Urobilinogen Normal Ur Leukocyte Esterase 500 H Urine RBC 25-50 SEEN Urine WBC 25-50 SEEN Ur Squamous Epith Cells 0 SEEN Urine Bacteria 4+ Urine Mucus 0 SEEN 02/10/23 Unknown WBC RBC Hgb Hct MCV MCH MCHC RDW Std Deviation RDW Coeff of Nathaniel Plt Count MPV Immature Gran % (Auto) Neut % (Auto) Lymph % (Auto) Sampson % (Auto) Eos % (Auto) Baso % (Auto) Absolute Neuts (auto) Absolute Lymphs (auto) Nucleated RBC % Differential Comment PT INR APTT Sodium Potassium Chloride Carbon Dioxide Anion Gap BUN Creatinine Estim Creat Clear Calc Est GFR (MDRD) Af Amer Est GFR (MDRD) Non-Af BUN/Creatinine Ratio Glucose Lactic Acid 1.9 Calcium Total Bilirubin Direct Bilirubin AST ALT Alkaline Phosphatase Total Protein Albumin Globulin Procalcitonin Urine Color Urine Clarity Urine pH Ur Specific [place] Urine Protein Urine Glucose (UA) Urine Ketones Urine Occult Blood Urine Nitrite Urine Bilirubin Urine Urobilinogen Ur Leukocyte Esterase Urine RBC Urine WBC Ur Squamous Epith Cells Urine Bacteria Urine Mucus Radiography Diagnostic Testing: Clinical Impression(s) from Imaging Studies Chest X-Ray 02/10/23 22:45 IMPRESSION: No active disease. Electronically Signed: Mele Garcia MD at 23:39 EDT , Chest x-ray as interpreted by the emergency medicine physician reveals no acute infiltrate pneumothorax or pleural effusion Discharge Plan Triage Chief Complaint: Alt LOC ED Provider: Geremias Carey Dx/Rx/DC Orders Clinical Impression: UTI (urinary tract infection), HTN (hypertension), Sick sinus syndrome, Presence of cardiac pacemaker, Delirium, Current use of buttermaker continuous churn anticoagulation Instructions: Urinary Tract Infections in Men Prescriptions: New cephalexin 500 mg capsule 500 mg PO TID 7 Days Qty: 21 0RF No Action losartan 50 MG tablet 50 mg PO DAILY Hold Instructions: Hold for 1 week until kidney function returns to normal. atorvastatin 40 MG tablet 40 mg PO QHS warfarin [Jantoven] 5 MG tablet 7.5 mg PO SUTUWETHFRSA Hold Instructions: Hold for 2 more days Patient Comments: blood thinner tamsulosin 0.4 mg capsule 0.4 mg PO QHS Patient Comments: TAKE 1 CAPSULE BY MOUTH EVERYDAY AT BEDTIME warfarin 5 mg tablet 10 mg PO MO Hold Instructions: Hold for 2 more days Patient Comments: 10 MG SATURDAY, 7.5 MG ALL OTHER DAYS. PATIENT HAS INR DRAWN BI-WEEKLY. amlodipine 2.5 mg Tablet 2.5 mg PO DAILY 30 Days Qty: 30 0RF acetaminophen 325 mg Tablet 650 mg PO Q4H PRN PRN (Reason: PAIN AND FEVER) Qty: 0 0RF Patient Comments: PRN PER CARE HOME MAR sucralfate 1 gram Tablet 1 g PO 0700,1100,1600 Qty: 90 2RF ferrous sulfate 300 mg (60 mg iron)/5 mL liquid 300 mg PO DAILY Qty: 500 2RF pantoprazole 40 mg tablet,delayed release (DR/EC) 40 mg PO BID Qty: 60 2RF Biofreeze (menthol) 5 % gel 1 ea topical BID melatonin 3 mg Tablet 3 mg PO QHS Patient Comments: PRN PER CARE HOME SEP. duloxetine [Cymbalta] 60 mg capsule,delayed release(DR/EC) 60 mg PO DAILY cholecalciferol (vitamin D3) 1,250 mcg (50,000 unit) tablet 1,250 mcg PO MO metformin 1,000 mg tablet 1,000 mg PO BID Hold Instructions: Hold for 1 week. insulin lispro [Humalog KwikPen Insulin] 100 unit/mL insulin pen See Protocol subcut ACHS Protocol: 6. Sliding Scale Insulin Custom Condition: mg/dl range Dose/Route: Number of Units Condition: 200-250 Dose/Route: 5 Condition: 251-300 Dose/Route: 8 Condition: 301-350 Dose/Route: 12 Condition: >351 Instruction: NOTIFY Protocol Text: Custom Sliding Scale sennosides-docusate sodium [Stool Softener-Stimulant Laxat] 8.6-50 mg Tablet 2 tab PO BID PRN (Reason: Constipation) Qty: 0 0RF ascorbic acid (vitamin C) 500 mg tablet 500 mg PO BID Qty: 60 2RF insulin glargine [Lantus Solostar U-100 Insulin] 100 UNITS/ML insulin pen 15 unit subcut DAILY Qty: 15 0RF memantine 10 mg tablet 10 mg PO QPM 30 Days Qty: 30 0RF Primary Care Provider: Luis Caldera Referrals: Luis Caldera MD [Primary Care Provider] - Activity Restrictions/Additional Instructions: Work-up revealed a urinary tract infection which can lead to low-grade fever and alteration in mental status. Antibiotics that were prescribed should help resolve this. At this time as his blood pressure is stable and he does not have an elevated white blood cell count or kidney damage or elevation to his lactic acid treatment will commence on an outpatient basis. If he has worsening of symptoms or no improvement after 3 days of antibiotics please return for repeat evaluation Disposition Disposition: Home, Self Care Discharge Date/Time: 02/11/23 01:40
[2023-02-10 22:27] VITALS: BP 113/69; PULSE 85; RESP 28; TEMP 36.9; O2SAT 94
[2023-02-10 22:36] LABS: Lactic Acid 1.9 mmol/L (0.4-1.9)
[2023-02-10 22:45] LABS: Mucous, Urine 0 SEEN /hpf (<or=2+); Squamous Epithelial Cells - UA 0 SEEN /hpf (0-5)
--- NOTE | 2023-02-10 22:45 | RAD_ITS ---
STUDY: X-RAY CHEST REASON FOR EXAM: Male, 77 years old. cough TECHNIQUE: Single AP portable view of the chest. COMPARISON: 02/05/2023 FINDINGS: Left subclavian pacemaker which is unchanged. Status post median sternotomy. The lungs are clear and expanded. There is no demonstrated pleural abnormality. Normal size heart. Normal mediastinum and francesca. Normal visualized pulmonary arteries. Normal visualized aortic arch and descending thoracic aorta. Normal visualized thoracic spine. Normal visualized ribs, clavicles, and shoulders. There is no demonstrated abnormality of the visualized soft tissue structures of the upper abdomen. RAD/Chest 1 View (Portable) IMPRESSION: No active disease. Electronically Signed: Mele Garcia MD at 23:39 EDT ,
[2023-02-10 22:46] LABS: AST(SGOT) 10 U/L (15-37); Alanine Aminotransfer ALT/SGPT 18 U/L (16-61); Albumin, Serum 2.3 g/dL (3.2-5.0); Alkaline Phosphatase 100 U/L (45-117); Anion Gap 9 (5-15); BUN 26 mg/dL (7-18); BUN/Creat Ratio 23.9 RATIO (10-20); Bilirubin, Direct 0.43 mg/dL (0.00-0.30); Calcium,Total 8.3 mg/dL (8.5-10.1); Chloride 103 mmol/L (98-107); Creatinine, Serum 1.09 mg/dL (0.70-1.30); EST Glomerular Filtration Rate 70 mL/min (>60); Est Glom Filt Rate - Afr Amer 85 mL/min (>60); Estimated Creatinine Clearance 66.18 ml/min; Globulin 3.3 g/dL (2.2-4.2); Glucose 158 mg/dL (74-106); Potassium 3.7 mmol/L (3.5-5.1); Protein, Total 5.6 g/dL (6.4-8.2); Sodium Level 136 mmol/L (136-145)
[2023-02-10 22:48] LABS: Differential Indicated SCAN CRITERIA MET
[2023-02-10 22:50] LABS: International Normalized Ratio 1.4; Prothrombin Time (Protime)PT. 17.5 SECONDS (11.7-14.9)
[2023-02-10 22:51] LABS: Partial Thromboplast Time 42.1 Seconds (24.1-36.2)
[2023-02-10 22:51] LABS: Procalcitonin 1.43 ng/mL (0.00-0.09)
[2023-02-10 23:03] LABS: Color, Urine Yellow (Yellow); Glucose, Dipstick Normal (Normal); Ketone-Dipstick 5 mg/dl (Negative); Leukocyte Esterase-Dipstick 500 /ul (Negative); Nitrite-Dipstick Negative (Negative); Occult Blood-Urine 250 /ul (Negative); Protein-Dipstick 100 mg/dl (Negative); Specific Gravity, Urine 1.015 (1.002-1.030); Urine Bilirubin Dipstick Negative (Negative); Urine Clarity Sl. Cloudy (Clear); Urine Urobilinogen Normal (Normal)
[2023-02-10 23:30] LABS: Bacteria 4+ /hpf (None Seen); Red Blood Cells-Urine 25-50 SEEN /hpf (0-5); White Blood Cells 25-50 SEEN /hpf (0-5)
[2023-02-10 23:43] LABS: Differential Comment SCANNED
[2023-02-11] VITALS: BP 119/67; PULSE 74; RESP 25; TEMP 37; O2SAT 94
[2023-02-11] MEDS: Ceftriaxone 1 GM/50 ML BAG IV (00:06)
[2023-02-11 00:58] VITALS: BP 124/62; PULSE 74; RESP 26; TEMP 36.9; O2SAT 95
== END 2023-02-11 01:40 | disposition home or self-care (01) ==
PROVIDERS: Emergency Provider Emergency Medicine; PCP Family Medicine; Visit Provider Emergency Medicine
DX: N39.0 Urinary tract infection, site not specified (principal); E11.40 Type 2 diabetes mellitus with diabetic neuropathy, unspecified; I49.5 Sick sinus syndrome; E78.5 Hyperlipidemia, unspecified; R41.0 Disorientation, unspecified; I10 Essential (primary) hypertension; I25.2 Old myocardial infarction; Z79.899 Other long term (current) drug therapy; Z79.84 Long term (current) use of oral hypoglycemic drugs; Z95.0 Presence of cardiac pacemaker; Z86.16 Personal history of COVID-19; Z79.01 Long term (current) use of anticoagulants
CPT/HCPCS: 71045; 80048; 80076; 81001; 83605; 84145; 85025; 85610; 85730; 87040; 87077; 87086; 87088; 87186; 87428; 93005; 99285; J7030; A4216

== ENCOUNTER 2023-02-11 16:20 | Inpatient (IN) | payer MEDICARE, OTHER, SELFPAY ==
[2023-02-11] VITALS (7 sets, daily range): BP systolic 119–147; BP diastolic 57–71; PULSE 55–98; RESP 16–22; TEMP 37–37.3; O2SAT 92–98; BMI 29.9
--- NOTE | 2023-02-11 16:20 | EKG12_ITS ---
Test Reason : AMS Blood Pressure : / mmHG Vent. Rate : 094 BPM Atrial Rate : 094 BPM P-R Int : 000 ms QRS Dur : 196 ms QT Int : 448 ms P-R-T Axes : 000 -77 094 degrees QTc Int : 560 ms Ventricular-paced rhythm with premature ventricular or aberrantly conducted complexes Abnormal ECG Confirmed by ANISA COLBERT, YECENIA ([id number]), deputy editor in chief SOFIA CAMERON ([id number]) on 02/12/2023 11:06:35 AM Referred By: JAQUELIN/ADRIAN Confirmed By:YECENIA LANGE MD
--- NOTE | 2023-02-11 16:59 | EX.ED.DYSGE1 ---
HPI History of Present Illness Chief Complaint: Alt LOC Informant: patient, spouse/S.O., EMS and SNF Narrative Narrative: Patient had a pacemaker placed last week for SSS, started becoming lethargic yesterday of the day before, was seen here and diagnosed with a urinary tract infection, started on cephalexin. Returns today, more lethargic than he was yesterday, but otherwise unchanged due to blood cultures returning positive for gram-negative rods, both bottles. Urine culture still pending. Spouse states that he has been getting some mild dementia recently, his confusion is no differently recently, mostly the lethargy is the issue acutely. [facility] Medical History (Updated 02/11/23 @ 19:31 by Nidia Artis) AAA (abdominal aortic aneurysm) Amputation of right great toe Anemia Anxiety Aortic aneurysm without rupture Atrial fibrillation COVID-19 Dementia Depression Diabetes Diabetic neuropathy GI bleed HLD (hyperlipidemia) HTN (hypertension) Hyperkalemia Kidney stones Lactic acidosis Leukocytosis Non-smoker NSTEMI, initial episode of care Osteomyelitis Presence of cardiac pacemaker Pulmonary emboli RBBB (right bundle 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) Second degree AV block, Mobitz type II Ulcer of right great toe due to diabetes mellitus Upper gastrointestinal bleed Ureterolithiasis Valvular heart disease Home Medications losartan 50 mg tablet 50 mg PO DAILY blood pressure 03/24/18 [History Last Taken 02/11/23] atorvastatin 40 mg tablet 40 mg PO QHS cholesterol 05/22/18 [History Last Taken 02/10/23] warfarin 5 mg tablet (Jantoven) 7.5 mg PO SUTUWETHFRSA anticoagulant 05/22/18 [History Last Taken 02/10/23] tamsulosin 0.4 mg capsule 0.4 mg PO QHS PROSTATE 03/02/22 [History Last Taken 02/10/23] warfarin 5 mg tablet 10 mg PO MO BLOOD THINNER 03/02/22 [History Last Taken 02/04/23] amlodipine 2.5 mg tablet 2.5 mg PO DAILY BP 30 days #30 tabs 07/11/22 [Rx Last Taken 02/11/23] cholecalciferol (vitamin D3) 1,250 mcg (50,000 unit) tablet 1,250 mcg PO MO SUPPLEMENT 01/21/23 [History Last Taken 02/11/23] duloxetine 60 mg capsule,delayed release (Cymbalta) 60 mg PO DAILY DEPRESSION 01/21/23 [History Last Taken 02/11/23] insulin lispro 100 unit/mL subcutaneous pen (Humalog KwikPen (U-100) Insulin) See Protocol subcut ACHS DM 01/21/23 [History Last Taken 01/21/23] metformin 1,000 mg tablet 1,000 mg PO BID DM 01/21/23 [History Last Taken 02/11/23] ascorbic acid (vitamin C) 500 mg tablet 500 mg PO BID #60 tabs 01/26/23 [Rx Last Taken 02/11/23] insulin glargine 100 unit/mL (3 mL) subcutaneous pen (Lantus Solostar U-100 Insulin) 15 unit (0.15 mL) subcut DAILY diabetes #15 mL 01/26/23 [Rx Last Taken 02/11/23] memantine 10 mg tablet 10 mg PO QPM 30 days #30 tabs 01/26/23 [Rx Last Taken 02/10/23] sennosides 8.6 mg-docusate sodium 50 mg tablet (Stool Softener-Stimulant Laxative) 2 tab PO BID PRN Constipation #0 tabs 01/26/23 [Rx Last Taken Unknown] ferrous sulfate 300 mg (60 mg iron)/5 mL oral liquid 300 mg (5 mL) PO DAILY #500 mL 02/05/23 [Rx Last Taken 02/11/23] pantoprazole 40 mg tablet,delayed release 40 mg PO BID #60 tabs 02/05/23 [Rx Last Taken 02/11/23] sucralfate 1 gram tablet 1 g PO 0700,1100,1600 #90 tabs 02/05/23 [Rx Last Taken 02/11/23] melatonin 3 mg tablet 3 mg PO QHS Insomnia 02/10/23 [History Last Taken 02/10/23] menthol 5 % topical gel (Biofreeze (menthol)) 1 ea topical BID back pain 02/10/23 [History Last Taken Unknown] acetaminophen 325 mg tablet 650 mg PO TID PAIN AND FEVER 02/11/23 [History Last Taken 02/11/23] cephalexin 500 mg capsule 500 mg PO TID 02/11/23 [History Last Taken 02/11/23] Allergy/AdvReac Type Severity Reaction Status Date / Time pantoprazole AdvReac NEEDS Verified 02/11/23 19:33 FOLLOW-UP propofol AdvReac Other Verified 02/11/23 19:33 Family History Mother Heart disease Diabetes Hypertension Father Heart disease Surgical History (Updated 02/11/23 @ 19:31 by Nidia Artis) H/O aortic valve repair History of AAA (abdominal aortic aneurysm) repair History of foot surgery History of thoracic aortic aneurysm repair Hx of abdominal surgery Social History housing: [facility] current occupational status: retired Smoking Status: Never smoker alcohol intake: never substance use type: does not use ROS ROS ED Constitutional Constitutional ED: Reports fever(s), lethargy and weakness; Denies chills Eyes Eyes: Denies change in vision or diplopia ENT ENT ED: Denies sore throat Cardiovascular Cardiovascular: Denies chest pain Respiratory/Chest Respiratory/Chest: Denies cough or dyspnea Gastrointestinal Gastrointestinal: Denies abdominal pain, diarrhea, nausea or vomiting Genitourinary Genitourinary ED: Denies dysuria or hematuria Musculoskeletal Musculoskeletal: Denies back pain or neck pain Integumentary Denies abscess or rash Neurologic Neurologic: Reports as per HPI, memory loss and other Details: Mild confusion at baseline per spouse ; Denies headache(s), paresthesias or weakness Psychiatric Psychiatric: Denies anxiety or suicidal thoughts EXAM Physical Exam Const Vital Signs: 02/11/23 16:21 02/11/23 16:43 02/11/23 16:50 Temperature 99.1 F Temperature Source Oral Pulse Rate 97 98 98 Respiratory Rate 18 22 H 19 H Blood Pressure 119/57 L Blood Pressure Mean 77 Pulse Ox 96 96 Oxygen Delivery Method Room Air 02/11/23 17:00 Temperature Temperature Source Pulse Rate 77 Respiratory Rate 21 H Blood Pressure Blood Pressure Mean Pulse Ox Oxygen Delivery Method Positive well nourished and well developed General Appearance ED: well developed and NAD HEENT Reports moist mucous membranes normocephalic and atraumatic Eyes PERRL and EOMs intact bilaterally Neck full ROM and supple Chest Wall inspection of chest normal Resp normal respiratory effort and clear to auscultation bilaterally Cardio regular rate, regular rhythm and no murmurs Rate: Negative for tachycardic GI non-tender and non-distended Auscultation: normoactive bowel sounds Palpation: soft Back/Spine no CVA tenderness General Back: other FROM Extremity normal to inspection General Extremety ED: Negative for edema, pulses abnormal or tenderness General Extremity: Negative for edema or pulses abnormal Neuro CN's II-XII intact bilaterally and no sensory deficits noted Neuro Narrative: Alert and oriented to person and general place. Lethargic but alerts easily to voice. Follows commands. GCS 14. Sensorium / Orientation: awake and alert Motor Exam: general weakness Psych mental status grossly normal Skin no rashes or lesions noted and no wounds MDM MDM MDM Narrative Medical decision making narrative: I reviewed his recent ED visit, he also had labs done this morning that looked similar and no worse, his lactate was 1.9 yesterday, his urinalysis was consistent with infection, I reviewed the culture results which I reported as above, they are still reporting as such. I looked through his entire history of microbiology, he has never had a positive urine culture in the past. Therefore will empirically cover him with broad-spectrum antibiotics IV Rocephin, I am repeating his lactate and give him some IV fluids although his vital signs look normal now, he was having low-grade fevers, his INR is subtherapeutic at 1.5, and he has a nonfocal neurologic exam so I do not think he needs a CT of the head. His neck is supple and not examining like meningitis I think all of this is consistent with bacteremia due to UTI. History & Record Review Additional record(s) reviewed:: Prior outpatient record, Prior ED visit and Prior labs Lab Data Attestation: I reviewed the patient's lab results. Labs: Laboratory Results - last 24 hr 02/11/23 18:04 Lactic Acid 2.8 H* Rhythm Strip Rhythm Strip: paced Rate: 95 Ectopy: None EKG Initial EKG: Attestation: I personally reviewed and interpreted this EKG as follows: Interpretation: Paced (Underlying atrial fibrillation with ventricular pacing and capture) Management Discussion w/another healthcare provider: Hospitalist Discharge Plan Dx/Rx/DC Orders Clinical Impression: Subtherapeutic international normalized ratio (INR), UTI (urinary tract infection), Bacteremia Disposition Disposition: Acute Care Hospital [facility] Discharge Date/Time: 02/11/23 19:06
[2023-02-11] MEDS: Ceftriaxone 1 GM/50 ML BAG IV (17:09)
[2023-02-11 18:51] LABS: Lactic Acid 2.8 mmol/L (0.4-1.9)
--- NOTE | 2023-02-11 19:04 | ED.RN ---
unable to confirm med list at this time d/t hospitalist in chart.
--- NOTE | 2023-02-11 19:29 | PCM.HP.STD ---
HPI - General General Date of Admission: 02/11/23 Date of Service: 02/11/23 Chief Complaint: Urinary tract infection and confusion HPI Narrative RICHARD ROY, is a 77 M who presents to the emergency room with chief complaint of confusion and diagnosis of urinary tract infection. Patient was admitted and discharged February 05 and was treated for gastrointestinal bleed as well as cardiac pacemaker for symptomatic bradycardia at that time. Patient was seen in the emergency room yesterday and treated for urinary tract infection and sent back [facility] the [facility] facility, however, today the patient has become more obtunded and sleeping excessively. Lactic acid elevation is noted and patient is on pacemaker. He denies any chest pain, shortness of breath and/or fevers or chills however is not a great historian at present time. Patient's is present at bedside and apparently the son is the DURABLE POWER OF MOLD DESIGN ENGINEER for healthcare and has orders signed for DNR CCA with no intubation. He will be admitted to the general medical floor placed on [facility], consult for infectious disease due to new implanted pacemaker. [facility], [facility] Medical History Amputation of right great toe Anemia Aortic aneurysm without rupture COVID-19 Diabetes Diabetic neuropathy HLD (hyperlipidemia) HTN (hypertension) Hyperkalemia Lactic acidosis Leukocytosis NSTEMI, initial episode of care Osteomyelitis Presence of cardiac pacemaker Pulmonary emboli RBBB (right bundle 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) Second degree AV block, Mobitz type II Ulcer of right great toe due to diabetes mellitus Upper gastrointestinal bleed Ureterolithiasis Valvular heart disease Home Medications losartan 50 mg tablet 50 mg PO DAILY blood pressure 03/24/18 [History Last Taken 01/20/23] atorvastatin 40 mg tablet 40 mg PO QHS cholesterol 05/22/18 [History Last Taken 01/20/23] warfarin 5 mg tablet (Jantoven) 7.5 mg PO SUTUWETHFRSA anticoagulant 05/22/18 [History Last Taken 01/20/23] tamsulosin 0.4 mg capsule 0.4 mg PO QHS PROSTATE 03/02/22 [History Last Taken 01/20/23] warfarin 5 mg tablet 10 mg PO MO BLOOD THINNER 03/02/22 [History Last Taken 01/02/23] amlodipine 2.5 mg tablet 2.5 mg PO DAILY BP 30 days #30 tabs 12/28/22 [Rx Last Taken 01/20/23] acetaminophen 325 mg tablet 650 mg (2 x 325 mg) PO Q4H PRN PRN PAIN AND FEVER #0 tabs 01/08/23 [Rx Last Taken 01/19/23] cholecalciferol (vitamin D3) 1,250 mcg (50,000 unit) tablet 1,250 mcg PO MO SUPPLEMENT 01/21/23 [History Last Taken 01/14/23] duloxetine 60 mg capsule,delayed release (Cymbalta) 60 mg PO DAILY DEPRESSION 01/21/23 [History Last Taken 01/20/23] insulin lispro 100 unit/mL subcutaneous pen (Humalog KwikPen (U-100) Insulin) See Protocol subcut ACHS DM 01/21/23 [History Last Taken 01/21/23] metformin 1,000 mg tablet 1,000 mg PO BID DM 01/21/23 [History Last Taken 01/20/23] ascorbic acid (vitamin C) 500 mg tablet 500 mg PO BID #60 tabs 01/26/23 [Rx Last Taken Unknown] insulin glargine 100 unit/mL (3 mL) subcutaneous pen (Lantus Solostar U-100 Insulin) 15 unit (0.15 mL) subcut DAILY diabetes #15 mL 01/26/23 [Rx Last Taken 01/20/23] memantine 10 mg tablet 10 mg PO QPM 30 days #30 tabs 01/26/23 [Rx Last Taken Unknown] sennosides 8.6 mg-docusate sodium 50 mg tablet (Stool Softener-Stimulant Laxative) 2 tab PO BID PRN Constipation #0 tabs 01/26/23 [Rx Last Taken Unknown] ferrous sulfate 300 mg (60 mg iron)/5 mL oral liquid 300 mg (5 mL) PO DAILY #500 mL 02/05/23 [Rx Last Taken Unknown] pantoprazole 40 mg tablet,delayed release 40 mg PO BID #60 tabs 02/05/23 [Rx Last Taken Unknown] sucralfate 1 gram tablet 1 g PO 0700,1100,1600 #90 tabs 02/05/23 [Rx Last Taken Unknown] melatonin 3 mg tablet 3 mg PO QHS Insomnia 02/10/23 [History Last Taken Unknown] menthol 5 % topical gel (Biofreeze (menthol)) 1 ea topical BID 02/10/23 [History Last Taken Unknown] cephalexin 500 mg capsule 500 mg PO TID 7 days #21 caps 02/11/23 [Rx Last Taken Unknown] Allergy/AdvReac Type Severity Reaction Status Date / Time pantoprazole AdvReac NEEDS Verified 02/11/23 19:33 FOLLOW-UP propofol AdvReac Other Verified 02/11/23 19:33 Family History Mother Heart disease Diabetes Hypertension Father Heart disease Surgical History (Updated 02/11/23 @ 19:31 by Nidia Artis) H/O aortic valve repair History of AAA (abdominal aortic aneurysm) repair History of foot surgery History of thoracic aortic aneurysm repair Hx of abdominal surgery Social History housing: [facility] current occupational status: retired Smoking Status: Never smoker alcohol intake: never substance use type: does not use ROS Constitutional Constitutional: Reports fatigue and weakness; Denies chills or fever(s) Eyes Eyes: Denies blurry vision ENT HEENT: Denies abnormal hearing Cardiovascular Cardiovascular: Denies chest pain Respiratory/Chest Respiratory/Chest: Denies cough Gastrointestinal Gastrointestinal: Denies abdominal pain Genitourinary Genitourinary: Reports urinary frequency Musculoskeletal Musculoskeletal: Denies back pain Integumentary Integumentary: Denies dry skin Psychiatric Psychiatric: Denies anxiety Hematologic/Lymphatic Hematologic/Lymphatic: Reports anemia Vital Signs Vital Signs Vital Signs: 02/11/23 16:21 02/11/23 16:43 02/11/23 16:50 Temperature 99.1 F Temperature Source Oral Pulse Rate 97 98 98 Respiratory Rate 18 22 H 19 H Blood Pressure 119/57 L Blood Pressure Mean 77 Pulse Ox 96 96 Oxygen Delivery Method Room Air 02/11/23 17:00 02/11/23 18:52 02/11/23 18:53 Temperature 99.1 F 99.1 F Temperature Source Oral Oral Pulse Rate 77 90 88 Respiratory Rate 21 H 18 18 Blood Pressure 129/71 H 129/71 H Blood Pressure Mean 90 90 Pulse Ox 92 93 Oxygen Delivery Method Room Air Room Air Weight Weight: 226 lb 13.69 oz Body Mass Index (BMI) 29.9 Physical Exam Const alert Orientation / Consciousness: confused HEENT normocephalic and head/scalp atraumatic Eyes PERRL Neck no lymphadenopathy Lymph Lymphatic: no lymphadenopathy noted Resp normal respiratory effort, normal air movement and clear to auscultation bilaterally Cardio S1 normal heart sound and S2 normal heart sound Rhythm: abnormal rhythm irregularly irregular Heart Sounds: murmur GI soft to palpation, non-tender and non-distended Extremity no calf tenderness Skin Wounds: wounds noted Wound Narrative: chronic decub ulcer Neuro Motor Exam: general weakness Psych Appearance: appropriate Results Lab / Micro Data Labs: Laboratory Results - last 24 hr 02/11/23 18:04: Lactic Acid 2.8 H* Rhythm Strip Rhythm Strip: paced Rate: 95 Ectopy: None Assessment & Plan Assessment/Plan (1) Bacteremia: (2) Delirium: (3) UTI (urinary tract infection): (4) Weakness: (5) Confusion: (6) Presence of cardiac pacemaker: PLAN: Plan 1. Acute UTI symptoms with delirium?admit patient to general medical floor, start IV Rocephin every 24 hours, consult infectious disease specialist regarding new implanted pacemaker. Repeat CBC BMP in the a.m. and recheck lactic acid per protocol. IV hydration with normal saline 2. CODE STATUS patient is DNR Comfort Care arrest with no intubation 3. DVT prophylaxis?patient is already on Coumadin Charges/Coding Visit Charges Inpatient E&M: 74102 Init Hosp L2
[2023-02-11] MEDS: 0.9% Normal Saline 1,000 ML 75 ML IV (21:07)
[2023-02-11 22:08] LABS: Reflex Lactate? Y
[2023-02-11] MEDS: Heparin Injection (Vial) 5,000 UNIT/ML VIAL 5000 UNIT SC (22:40)
[2023-02-11] MEDS: Menthol/Lanolin/Calamine/Znox 113 GM Tube 1 APPLIC TOPICAL (22:40)
[2023-02-11 23:18] LABS: Lactic Acid 2.2 mmol/L (0.4-1.9)
[2023-02-12 03:00] VITALS: BP 130/60; PULSE 80; RESP 14; TEMP 37.2; O2SAT 100
[2023-02-12 06:05] LABS: Absolute Lymphocyte Count 0.61 X10^3/uL (0.83-4.51); Absolute Neutrophil Count 5.7 X10^3/uL (2.0-7.7); Basophil# 0.01 X10^3/uL; Basophil% 0.1 % (0-1); Eosinophil# 0.06 X10^3/uL; Eosinophils% 0.8 % (0-5); Hematocrit 24.2 % (40-54); Hemoglobin 7.7 g/dL (13.0-16.5); Lymphocyte # 0.61 X10^3/ul (0.83-4.51); Lymphocyte % 8.1 % (19-41); Mean Corp Hgb Conc 31.8 g/dL (32-36); Mean Corpuscular Hgb 27.9 pg (27.0-32.0); Mean Corpuscular Volume 87.7 fL (80-94); Monocyte# 0.94 X10^3/uL; Monocyte% 12.5 % (0-10); NRBC Flagged by Analyzer 0 % (0-5); Neutrophil # 5.74 X10^3/uL (2.7-7.7); Neutrophil % 76.5 % (47-70); Platelet Count 169 K/mm3 (150-450); RBC Distribution Width CV 16.9 % (11.6-14.6); RBC Distribution Width SD 53.7 fl (35.1-43.9); Red Blood Count 2.76 M/mm3 (4.6-6.2); White Blood Count 7.5 K/mm3 (4.4-11.0)
[2023-02-12 06:15] LABS: International Normalized Ratio 1.6; Prothrombin Time (Protime)PT. 19.3 SECONDS (11.7-14.9)
[2023-02-12 08:17] VITALS: BP 119/65; PULSE 69; RESP 18; TEMP 36.9; O2SAT 96
[2023-02-12] MEDS: Insulin Glargine-YFGN 100 UNIT/ML Pen 15 UNIT SC (09:39)
[2023-02-12] MEDS: 0.9% Normal Saline 1,000 ML 75 ML IV (09:39)
[2023-02-12] MEDS: Heparin Injection (Vial) 5,000 UNIT/ML VIAL 5000 UNIT SC ×2 (09:42→22:33)
[2023-02-12] MEDS: Ferrous Sulfate 300 MG/5 ML UDC PO (09:42)
[2023-02-12] MEDS: metFORMIN HCl 1,000 MG Tablet 1000 MG PO ×2 (09:42→17:19)
[2023-02-12] MEDS: DULoxetine Hcl 60 MG Capsule PO (09:42)
[2023-02-12] MEDS: Losartan Potassium 50 MG Tablet PO (09:43)
[2023-02-12] MEDS: Menthol/Lanolin/Calamine/Znox 113 GM Tube 1 APPLIC TOPICAL ×2 (09:43→22:33)
[2023-02-12] MEDS: amLODIPine 2.5 MG Tablet PO (09:43)
[2023-02-12] MEDS: Glucerna Shake 120 ML LIQUID PO (09:48)
--- NOTE | 2023-02-12 10:33 | CASEMGMT ---
Social Work Noted pt admitted from [facility]. SW spoke with pt about status of placement and goals for DC. Pt appeared confused with level of care given at SNF but states if he can go home from this stay, that is his goal. SW offered to speak with IDT and assist with DC planning. SW left voicemail with Kim at [facility] inquiring about placement and goals for return. Will await return call. SW will continue to follow. Melany Keane, BED LABORER ENROLLMENT SERVICES VICE PRESIDENT
[2023-02-12] MEDS: Sucralfate 1 GM Tablet PO ×2 (12:04→17:19)
--- NOTE | 2023-02-12 13:38 | CHAPLAIN ---
Type of Pastoral Visit _x__ Initial Visit ___ Follow-up Visit ___ On-call Visit ___ General Patient Visit ___ Spiritual Assessment ___ Family Conference ___ Bereavement ___ Rapid Response ___ Code Blue ___ Other (describe below) Pastoral Care Referral From _x__ Patient ___ Family ___ Nurse ___ Physician ___ Business Development Executive ___ Uniform Room Attendant ___ Other (describe below) Sacrament/Intervention ___ Active listening ___ Anointing ___ Religious ___ Bereavement ___ Communion ___ Elaine exploration ___ ___ Life review _x__ Prayer ___ Reconciliation ___ Sacrament of Sick _x__ Supportive presence ___ Wedding ___ Other (describe below) Pastoral Comments patient is sitting up in chair but appears to be napping; pt does awaken easily to his name; pt answers questions but does not engage in conversation; pt states that he is fine but cannot remember where he was before he came to the hospital; pt states goal as to get home; patient welcomes a prayer
--- NOTE | 2023-02-12 14:01 | ECHOCS_ITS ---
Reason For Study: Bacteremia Procedure This was a 2D Doppler, Color Flow transthoracic echocardiogram. Exam performed portable in patient room. Left Ventricle Normal LV size. The estimated ejection fraction is 55-60 %. Unable to assess diastolic dysfunction. No regional wall motion abnormalities noted. Right Ventricle Normal RV size. Normal systolic function. Atria Normal left atrium. Normal right atrium. No doppler evidence for ASD. Mitral Valve There is moderate mitral annular calcification. There is no mitral valve stenosis. Mild (1+) mitral valve insufficiency. Tricuspid Valve There is no tricuspid stenosis. Unable to estimate RV systolic pressure due to inadequate jet, pulmonary artery pressure probably normal. Aortic Valve Trisinus/trileaflet aortic valve. There is no aortic stenosis. No aortic valve insufficiency. Pulmonic Valve There is no pulmonic valvular stenosis. No pulmonic valve insufficiency. Great Vessels Normal aortic root. Pericardium/Pleural No pericardial effusion. MMode/2D Measurements & Calculations LVIDd: 5.6 cm IVSd: 1.1 cm LA dimension: 5.2 cm LVIDs: 3.6 cm LVPWd: 1.0 cm FS: 34.8 % Time Measurements MV dec time: 0.16 sec Doppler Measurements & Calculations MV E max saud: 84.8 cm/sec Lat Peak E' Saud: 12.2 cm/sec Ao V2 max: 175.1 cm/sec MV A max saud: 124.2 cm/sec E/E' lat: 6.9 Ao max P.3 mmHg MV E/A: 0.68 Ao V2 mean: 114.0 cm/sec Ao mean P.0 mmHg Ao V2 VTI: 27.9 cm AV (velocity ratio): 0.73 LV V1 max: 107.9 cm/sec MR max saud: 315.6 cm/sec PA V2 max: 116.3 cm/sec LV V1 max P.7 mmHg MR max P.5 mmHg LV V1 mean P.9 mmHg MR mean sadu: 465.4 cm/sec LV V1 mean: 81.1 cm/sec MR mean P.6 mmHg LV V1 VTI: 20.3 cm MR VTI: 163.2 cm ECHO/Echo Complete W/ Contrast Interpretation Summary The estimated ejection fraction is 55-60 %. Unable to assess diastolic dysfunction. Mild (1+) mitral valve insufficiency. Ordering Physician: Smith Leija Performed By: Kwame Rodriges RCS
--- NOTE | 2023-02-12 14:12 | PCM.CONS.GEN ---
Assessment & Plan Assessment/Plan (1) Bacteremia: PLAN: GNR bacteremia from urinary source with recent pacer placement 02/04/23. On ceftriaxone. Will check repeat bcx, TTE, and consult cardiology. Will follow, thank you (2) Presence of cardiac pacemaker: HPI Consult Data Date of Consult: 02/12/23 HPI Narrative Reason for Consultation: bacteremia HPI Narrative: RICHARD ROY, is a 77 M with pacemaker placement 02/04, presented to ED 02/11 with acute onset confusion over past 2-3 days. Was started on keflex in ED 02/10, sent back to [facility]. Had low grade fever, returned here with (+) ucx and (+) bcx with GNR. Admitted on ceftriaxone, feeling ok today. No complaints, denies fever, chest pain, abd pain, dysuria, n/v/d. Full ROS performed and neg except as noted above. [facility] Medical History AAA (abdominal aortic aneurysm) Amputation of right great toe Anemia Anxiety Aortic aneurysm without rupture Atrial fibrillation COVID-19 Dementia Depression Diabetes Diabetic neuropathy GI bleed HLD (hyperlipidemia) HTN (hypertension) Hyperkalemia Kidney stones Lactic acidosis Leukocytosis Non-smoker NSTEMI, initial episode of care Osteomyelitis Presence of cardiac pacemaker Pulmonary emboli RBBB (right bundle 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) Second degree AV block, Mobitz type II Ulcer of right great toe due to diabetes mellitus Upper gastrointestinal bleed Ureterolithiasis Valvular heart disease Home Medications losartan 50 mg tablet 50 mg PO DAILY blood pressure 03/24/18 [History Last Taken 02/11/23] atorvastatin 40 mg tablet 40 mg PO QHS cholesterol 05/22/18 [History Last Taken 02/10/23] warfarin 5 mg tablet (Jantoven) 7.5 mg PO SUTUWETHFRSA anticoagulant 05/22/18 [History Last Taken 02/10/23] tamsulosin 0.4 mg capsule 0.4 mg PO QHS PROSTATE 03/02/22 [History Last Taken 02/10/23] warfarin 5 mg tablet 10 mg PO MO BLOOD THINNER 03/02/22 [History Last Taken 02/04/23] amlodipine 2.5 mg tablet 2.5 mg PO DAILY BP 30 days #30 tabs 07/11/22 [Rx Last Taken 02/11/23] cholecalciferol (vitamin D3) 1,250 mcg (50,000 unit) tablet 1,250 mcg PO MO SUPPLEMENT 01/21/23 [History Last Taken 02/11/23] duloxetine 60 mg capsule,delayed release (Cymbalta) 60 mg PO DAILY DEPRESSION 01/21/23 [History Last Taken 02/11/23] insulin lispro 100 unit/mL subcutaneous pen (Humalog KwikPen (U-100) Insulin) See Protocol subcut ACHS DM 01/21/23 [History Last Taken 01/21/23] metformin 1,000 mg tablet 1,000 mg PO BID DM 01/21/23 [History Last Taken 02/11/23] ascorbic acid (vitamin C) 500 mg tablet 500 mg PO BID #60 tabs 01/26/23 [Rx Last Taken 02/11/23] insulin glargine 100 unit/mL (3 mL) subcutaneous pen (Lantus Solostar U-100 Insulin) 15 unit (0.15 mL) subcut DAILY diabetes #15 mL 01/26/23 [Rx Last Taken 02/11/23] memantine 10 mg tablet 10 mg PO QPM 30 days #30 tabs 01/26/23 [Rx Last Taken 02/10/23] sennosides 8.6 mg-docusate sodium 50 mg tablet (Stool Softener-Stimulant Laxative) 2 tab PO BID PRN Constipation #0 tabs 01/26/23 [Rx Last Taken Unknown] ferrous sulfate 300 mg (60 mg iron)/5 mL oral liquid 300 mg (5 mL) PO DAILY #500 mL 02/05/23 [Rx Last Taken 02/11/23] pantoprazole 40 mg tablet,delayed release 40 mg PO BID #60 tabs 02/05/23 [Rx Last Taken 02/11/23] sucralfate 1 gram tablet 1 g PO 0700,1100,1600 #90 tabs 02/05/23 [Rx Last Taken 02/11/23] melatonin 3 mg tablet 3 mg PO QHS Insomnia 02/10/23 [History Last Taken 02/10/23] menthol 5 % topical gel (Biofreeze (menthol)) 1 ea topical BID back pain 02/10/23 [History Last Taken Unknown] acetaminophen 325 mg tablet 650 mg PO TID PAIN AND FEVER 02/11/23 [History Last Taken 02/11/23] cephalexin 500 mg capsule 500 mg PO TID 02/11/23 [History Last Taken 02/11/23] Allergy/AdvReac Type Severity Reaction Status Date / Time pantoprazole AdvReac NEEDS Verified 02/11/23 19:33 FOLLOW-UP propofol AdvReac Other Verified 02/11/23 19:33 Family History Mother Heart disease Diabetes Hypertension Father Heart disease Surgical History H/O aortic valve repair History of AAA (abdominal aortic aneurysm) repair History of foot surgery History of thoracic aortic aneurysm repair Hx of abdominal surgery Social History housing: skilled nursing current occupational status: retired Smoking Status: Never smoker alcohol intake: never substance use type: does not use Physical Exam Const alert and no apparent distress Constitutional Narrative: oriented x2 General Appearance: cooperative and well developed HEENT normocephalic and head/scalp atraumatic Eyes PERRL and EOMs intact bilaterally Neck supple and No nodes Resp normal air movement and clear to auscultation bilaterally Cardio regular rate, regular rhythm and no murmurs GI soft to palpation, non-tender and non-distended Extremity General Extremity: Negative for edema Skin no rashes or lesions noted Skin Narrative: No swelling over L chest pacer site Neuro CN's II-XII intact bilaterally Lab / Micro Data Attestation: I reviewed the patient's lab results. 02/12/23 05:57 Labs: Laboratory Results - last 24 hr 02/11/23 18:04: Lactic Acid 2.8 H* 02/11/23 22:45: Lactic Acid 2.2 H* 02/12/23 05:57: WBC 7.5, RBC 2.76 L, Hgb 7.7 L, Hct 24.2 L, MCV 87.7, MCH 27.9, MCHC 31.8 L, RDW Std Deviation 53.7 H, RDW Coeff of Nathaniel 16.9 H, Plt Count 169, MPV 9.0, Immature Gran % (Auto) 2.000 H, Neut % (Auto) 76.5 H, Lymph % (Auto) 8.1 L, [place] % (Auto) 12.5 H, Eos % (Auto) 0.8, Baso % (Auto) 0.1, Absolute Neuts (auto) 5.7, Absolute Lymphs (auto) 0.61 L, Nucleated RBC % 0, PT 19.3 H, INR 1.6 Rhythm Strip Rhythm Strip: paced Rate: 95 Ectopy: None
[2023-02-12 15:57] VITALS: BP 122/56; PULSE 53; RESP 18; TEMP 36.4; O2SAT 96
[2023-02-12 16:21] LABS: Bedside Glucose 152 mg/dL (74-106)
--- NOTE | 2023-02-12 16:39 | PN.HOSP_ITS ---
Reason for Visit Reason for Visit: Diagnoses Urinary tract infection, site not specified (02/11/23) Disorientation, unspecified (02/11/23) Weakness (02/11/23) Bacteremia (02/11/23) Presence of cardiac pacemaker (02/11/23) Subjective Subjective Patient was seen and examined today, he is alert and answers simple questions appropriately. I talked briefly with infectious diseases about his care, I also talked with cardiology who put his pacemaker in approximately a week ago, cardiology does not think that the patient needs a ANGELITA performed. Patient remains afebrile, his white blood cell count also remains normal. Objective Data Objective Data Vital Signs: Vital Signs Temp Pulse Resp BP Pulse Ox O2 Del Method 97.6 F L 53 L 18 122/56 H 96 Room Air 02/12/23 15:57 02/12/23 15:57 02/12/23 15:57 02/12/23 15:57 02/12/23 15:57 02/12/23 15:57 Oxygen Delivery Method Room Air Weight: 102.9 kg Body Mass Index (BMI) 30.0 Intake & Output: Intake and Output for Last 24 Hours 02/10/23 02/11/23 02/12/23 23:59 23:59 23:59 Intake Total 550 / 550 1773.75 / 1773.75 Balance 550 / 550 1773.75 / 1773.75 Lab / Micro Data 02/12/23 05:57 Labs: Laboratory Results - last 24 hr 02/11/23 18:04: Lactic Acid 2.8 H* 02/11/23 22:45: Lactic Acid 2.2 H* 02/12/23 05:57: WBC 7.5, RBC 2.76 L, Hgb 7.7 L, Hct 24.2 L, MCV 87.7, MCH 27.9, MCHC 31.8 L, RDW Std Deviation 53.7 H, RDW Coeff of Nathaniel 16.9 H, Plt Count 169, MPV 9.0, Immature Gran % (Auto) 2.000 H, Neut % (Auto) 76.5 H, Lymph % (Auto) 8.1 L, [place] % (Auto) 12.5 H, Eos % (Auto) 0.8, Baso % (Auto) 0.1, Absolute Neuts (auto) 5.7, Absolute Lymphs (auto) 0.61 L, Nucleated RBC % 0, PT 19.3 H, INR 1.6 02/12/23 16:02: POC Glucose 152 H Rhythm Strip Rhythm Strip: paced Rate: 95 Ectopy: None Physical Exam Const alert, no apparent distress and average body habitus General Appearance: cooperative, well kempt and well developed Orientation / Consciousness: awake, oriented to person and oriented to place HEENT normocephalic, head/scalp atraumatic and moist oral mucous membranes Eyes PERRL, EOMs intact bilaterally and conjunctivae normal Neck supple, no JVD, thyroid normal and no carotid bruits General: trachea midline Resp normal respiratory effort, no retractions, no use of accessory muscles and clear to auscultation bilaterally Auscultation: Negative for rales, rhonchi or wheezes Cardio regular rate, regular rhythm, S1 normal heart sound, S2 normal heart sound, no murmurs, no rub and no gallops GI normal to inspection, nondistended, normoactive bowel sounds, soft to palpation, non-tender and non-distended Extremity no clubbing, cyanosis or edema Skin no rashes or lesions noted General Skin Exam: no breakdown Neuro CN's II-XII intact bilaterally, moves all extremities, no focal motor deficits and no sensory deficits noted Sensorium / Orientation: awake, alert, oriented to person and oriented to place Speech: speech normal Psych Psych Narrative: Patient has a flat affect Assessment & Plan Assessment/Plan (1) Bacteremia: PLAN: Plan 1. Bacteremia with gram-negative sherman-identification to follow at this time, sushma cuevas remains on Rocephin, he is being seen by infectious diseases. #2 sick sinus syndrome-status post pacemaker insertion #3 essential hypertension-patient is to remain on his current medications #4 type 2 diabetes-patient will have fingerstick blood sugars checked, sliding scale insulin will be given as needed #5 chronic use of anticoagulants-patient's INR will be rechecked tomorrow, patient's INR today was 1.6, I will give the patient extra warfarin today. #6 iron deficiency anemia-patient will get be given IV iron today #7 dementia-patient is on memantine at this time, I will increase his dosage to 10 mg twice daily Total clinical time spent by myself addressing the patient's medical issues, reviewing all of his data, and collaborating with the patient's care team: 35 minutes Charges/Coding Visit Charges Inpatient E&M: 26384 Subs Hosp L2
[2023-02-12] MEDS: Tamsulosin HCl 0.4 MG Capsule PO (22:32)
[2023-02-12] MEDS: Atorvastatin Calcium 40 MG Tablet PO (22:32)
[2023-02-12] MEDS: Memantine Hydrochloride 10 MG Tablet PO (22:33)
[2023-02-12 22:50] VITALS: BP 143/58; PULSE 62; RESP 18; TEMP 36.6
[2023-02-12 23:12] LABS: Bedside Glucose 125 mg/dL (74-106)
[2023-02-13] MEDS: 0.9% Normal Saline 1,000 ML 75 ML IV (02:28)
[2023-02-13] MEDS: Sucralfate 1 GM Tablet PO ×2 (06:38→11:47)
[2023-02-13 06:41] VITALS: BP 128/58; PULSE 62; RESP 16; TEMP 36.2; O2SAT 99
[2023-02-13 07:00] LABS: Bedside Glucose 113 mg/dL (74-106)
[2023-02-13] MEDS: metFORMIN HCl 1,000 MG Tablet 1000 MG PO (07:46)
[2023-02-13] MEDS: amLODIPine 2.5 MG Tablet PO (07:47)
[2023-02-13] MEDS: Losartan Potassium 50 MG Tablet PO (07:47)
[2023-02-13] MEDS: DULoxetine Hcl 60 MG Capsule PO (07:47)
[2023-02-13] MEDS: Ferrous Sulfate 300 MG/5 ML UDC PO (07:47)
[2023-02-13] MEDS: Menthol/Lanolin/Calamine/Znox 113 GM Tube 1 APPLIC TOPICAL (07:48)
[2023-02-13] MEDS: Heparin Injection (Vial) 5,000 UNIT/ML VIAL 5000 UNIT SC (07:48)
[2023-02-13] MEDS: Memantine Hydrochloride 10 MG Tablet PO (07:48)
[2023-02-13] MEDS: Glucerna Shake 120 ML LIQUID PO ×2 (07:52→14:07)
[2023-02-13] MEDS: Insulin Glargine-YFGN 100 UNIT/ML Pen 15 UNIT SC (07:53)
[2023-02-13 08:20] LABS: Absolute Lymphocyte Count 0.84 X10^3/uL (0.83-4.51); Absolute Neutrophil Count 3.6 X10^3/uL (2.0-7.7); Basophil# 0.02 X10^3/uL; Basophil% 0.4 % (0-1); Eosinophil# 0.22 X10^3/uL; Eosinophils% 4.1 % (0-5); Hematocrit 24.4 % (40-54); Hemoglobin 7.5 g/dL (13.0-16.5); Lymphocyte # 0.84 X10^3/ul (0.83-4.51); Lymphocyte % 15.7 % (19-41); Mean Corp Hgb Conc 30.7 g/dL (32-36); Mean Corpuscular Hgb 27.2 pg (27.0-32.0); Mean Corpuscular Volume 88.4 fL (80-94); Mean Platelet Vol. 9.2 fl (6.2-12.0); Monocyte% 11.2 % (0-10); NRBC Flagged by Analyzer 0.9 % (0-5); Neutrophil # 3.61 X10^3/uL (2.7-7.7); Neutrophil % 67.5 % (47-70); Platelet Count 194 K/mm3 (150-450); RBC Distribution Width CV 16.6 % (11.6-14.6); RBC Distribution Width SD 54.5 fl (35.1-43.9); Red Blood Count 2.76 M/mm3 (4.6-6.2); White Blood Count 5.4 K/mm3 (4.4-11.0)
[2023-02-13 08:21] VITALS: BP 138/62; PULSE 74; RESP 16; TEMP 36.6; O2SAT 100
--- NOTE | 2023-02-13 08:53 | CASEMGMT ---
Social Work SW called , her voicemail is not set up so SW unable to leave a message. SW reviewed PT notes, pt is a max-dependent assist of 2 at this time. [facility] called, message left for Anaid Rosas at [facility]. She did call back, confirms can take pt back skilled, will review updates. SW will let her know if pt is able to return today. FEDERICO Shields
--- NOTE | 2023-02-13 10:15 | CASEMGMT ---
Social Work SW called , inquired if the [facility] confirms this is the plan, she does not need a list of other jail facilities at this time. SW explained they did confirm will take him back, and we will let her know when he is ready. states understanding. FEDERICO Shields
[2023-02-13 11:36] LABS: Bedside Glucose 146 mg/dL (74-106)
[2023-02-13 11:42] VITALS: BP 127/66; PULSE 75; RESP 16; TEMP 36.6; O2SAT 98
--- NOTE | 2023-02-13 14:09 | PCM.TXEXTCAR ---
Diet Diet Order/Speech Therapy: 02/12/23 14:46 Diet: Cardiac: Calorie-Controlled Food consistency:: Regular Liquid Consistency:: Regular/Thin Dietary Modifications:: Consistent Carbohydrate Type of Dietary Supplement:: Glucerna Shake Is pt able to select menu?: No Diet Comments: 120mL glucerna shake TID w/ meals How many daily calories?: 2000 calorie Routine Orders/Code Status Routine Lab Work: - (INR on 02/14/23; fingerstick blood sugars AC nightly, Humalog subcu per sliding scale: 200-250: 5 units, 251-300: 8 units, 301-350: 12 units) Code Status: DNRCC-A (no intubation) Therapies Weight Bearing: Full weight bearing Physical Therapy: Eval and Treat Occupational Therapy: Eval and Treat Problem/Diagnosis (1) Bacteremia: Status: Acute Code(s): R78.81 - Bacteremia Plan 1. Bacteremia with Klebsiella pneumoniae #2 sick sinus syndrome-status post pacemaker insertion #3 essential hypertension-patient is to remain on his current medications #4 type 2 diabetes-patient will have fingerstick blood sugars checked, sliding scale insulin will be given as needed #5 chronic use of anticoagulants-patient's INR will be rechecked tomorrow, patient's INR today was 1.6, I will give the patient extra warfarin today. #6 iron deficiency anemia-patient will get be given IV iron today #7 dementia-patient is on memantine at this time, I will increase his dosage to 10 mg twice daily Total clinical time spent by myself addressing the patient's medical issues, reviewing all of his data, and collaborating with the patient's care team: 35 minutes Allergies/Procedures Done in Hospital Allergies pantoprazole Adverse Reaction (Verified 02/11/23 19:33) NEEDS FOLLOW-UP on SNF paperwork, unsure of reaction propofol Adverse Reaction (Verified 02/11/23 19:33) Other GETS AGGRESSIVE Procedures: None Type of Care/Length of Stay Estimated LOS: Convalescent Care Less Than 30 days Type of Care Needed: Skilled Rehab Potential: Fair Prognosis: Fair Additional Orders/Day of Discharge H&P will serve as current which was dated: 02/11/23 Day of Discharge: 02/13/23 Dietary and Speech Recommendations Dietitian Recommendations/Changes: Will change diet to 2000 calorie/consistent carbohydrate; cardiac. Will add 120mL Glucerna Shake TID w/ meals and d/c with medpass. Discharge Plan Admission Admit Date/Time: 02/11/23 18:39 Primary Reason for Your Visit: Klebsiella pneumoniae bacteremia Attending Provider: Gabriel Giraldo Primary Care Provider: Luis Caldera Consulting Providers: Smith Leija Discharge Orders/Prescriptions Prescriptions: New warfarin [Jantoven] 4 mg Tablet 8 mg PO DINNER Qty: 0 0RF memantine 10 mg Tablet 10 mg PO BID Qty: 0 0RF Continued losartan 50 MG tablet 50 mg PO DAILY Hold Instructions: Hold for 1 week until kidney function returns to normal. atorvastatin 40 MG tablet 40 mg PO QHS tamsulosin 0.4 mg capsule 0.4 mg PO QHS Patient Comments: TAKE 1 CAPSULE BY MOUTH EVERYDAY AT BEDTIME amlodipine 2.5 mg Tablet 2.5 mg PO DAILY 30 Days Qty: 30 0RF sucralfate 1 gram Tablet 1 g PO 0700,1100,1600 Qty: 90 2RF ferrous sulfate 300 mg (60 mg iron)/5 mL liquid 300 mg PO DAILY Qty: 500 2RF pantoprazole 40 mg tablet,delayed release (DR/EC) 40 mg PO BID Qty: 60 2RF Biofreeze (menthol) 5 % gel 1 ea topical BID melatonin 3 mg Tablet 3 mg PO QHS Patient Comments: PRN PER [facility] MAR. acetaminophen 325 mg Tablet 650 mg PO TID Patient Comments: PRN PER [facility] MAR cephalexin 500 mg capsule 500 mg PO TID Qty: 21 0RF Rx Instructions: for 21 doses- start on 02/14/23 duloxetine [Cymbalta] 60 mg capsule,delayed release(DR/EC) 60 mg PO DAILY cholecalciferol (vitamin D3) 1,250 mcg (50,000 unit) tablet 1,250 mcg PO MO metformin 1,000 mg tablet 1,000 mg PO BID Hold Instructions: Hold for 1 week. insulin lispro [Humalog KwikPen Insulin] 100 unit/mL insulin pen See Protocol subcut ACHS Protocol: 6. Sliding Scale Insulin Custom Condition: mg/dl range Dose/Route: Number of Units Condition: 200-250 Dose/Route: 5 Condition: 251-300 Dose/Route: 8 Condition: 301-350 Dose/Route: 12 Condition: >351 Instruction: NOTIFY MD Protocol Text: Custom Sliding Scale Rx Instructions: 200-250 5 units; 251-300 8 units; 301-350 12 units; 351-1000 call sendebrasidelaurel-docusate sodium [Stool Softener-Stimulant Laxat] 8.6-50 mg Tablet 2 tab PO BID PRN (Reason: Constipation) Qty: 0 0RF ascorbic acid (vitamin C) 500 mg tablet 500 mg PO BID Qty: 60 2RF insulin glargine [Lantus Solostar U-100 Insulin] 100 UNITS/ML insulin pen 15 unit subcut DAILY Qty: 15 0RF Discontinued warfarin [Jantoven] 5 MG tablet 7.5 mg PO SUTUWETHFRSA Hold Instructions: Hold for 2 more days Patient Comments: blood thinner warfarin 5 mg tablet 10 mg PO MO Hold Instructions: Hold for 2 more days Patient Comments: 10 MG SATURDAY, 7.5 MG ALL OTHER DAYS. PATIENT HAS INR DRAWN BI-WEEKLY. memantine 10 mg tablet 10 mg PO QPM 30 Days Qty: 30 0RF Referrals / Follow Up: Luis Caldera MD [Primary Care Provider] - Júnior Chandra MD [Med Staff - Active Staff] - See Referral Note (As scheduled previously) Disposition Disposition (needs filled in before D/C Order can be placed): Long Term Facility
--- NOTE | 2023-02-13 14:24 | DS.PCM_ITS ---
Providers Date of Admission: 02/11/23 Date of Discharge: 02/13/23 Primary Care Physician: Dr. Luis Caldera MD Consultations 02/11/23 19:55 Consult: Infectious Disease Routine Consulting Provider: Smith Leija Reason for Consult: bacteremia EMERGENT Consult: No Notified: Yes Date Notified: 02/11/23 Time Notified: 18:48 Method of Notification: Verbal Reason For Visit: BACTEREMIA, CYSTITIS Diagnosis Discharge Diagnosis (1) Bacteremia: Status: Acute Code(s): R78.81 - Bacteremia Plan 1. Bacteremia with Klebsiella pneumoniae #2 sick sinus syndrome-status post pacemaker insertion #3 essential hypertension-patient is to remain on his current medications #4 type 2 diabetes-patient will have fingerstick blood sugars checked, sliding scale insulin will be given as needed #5 chronic use of anticoagulants-patient's INR will be rechecked tomorrow, patient's INR today was 1.6, I will give the patient extra warfarin today. #6 iron deficiency anemia-patient will get be given IV iron today #7 dementia-patient is on memantine at this time, I will increase his dosage to 10 mg twice daily Total clinical time spent by myself addressing the patient's medical issues, reviewing all of his data, and collaborating with the patient's care team: 35 minutes Medications at Discharge Home Medications losartan 50 mg tablet 50 mg PO DAILY blood pressure 03/24/18 atorvastatin 40 mg tablet 40 mg PO QHS cholesterol 05/22/18 tamsulosin 0.4 mg capsule 0.4 mg PO QHS PROSTATE 03/02/22 amlodipine 2.5 mg tablet 2.5 mg PO DAILY BP 30 days #30 tabs 07/11/22 cholecalciferol (vitamin D3) 1,250 mcg (50,000 unit) tablet 1,250 mcg PO MO SUPPLEMENT 01/21/23 duloxetine 60 mg capsule,delayed release (Cymbalta) 60 mg PO DAILY DEPRESSION 01/21/23 insulin lispro 100 unit/mL subcutaneous pen (Humalog KwikPen (U-100) Insulin) See Protocol subcut ACHS DM 01/21/23 metformin 1,000 mg tablet 1,000 mg PO BID DM 01/21/23 ascorbic acid (vitamin C) 500 mg tablet 500 mg PO BID #60 tabs 01/26/23 insulin glargine 100 unit/mL (3 mL) subcutaneous pen (Lantus Solostar U-100 Insulin) 15 unit (0.15 mL) subcut DAILY diabetes #15 mL 01/26/23 sennosides 8.6 mg-docusate sodium 50 mg tablet (Stool Softener-Stimulant Laxative) 2 tab PO BID PRN Constipation #0 tabs 01/26/23 ferrous sulfate 300 mg (60 mg iron)/5 mL oral liquid 300 mg (5 mL) PO DAILY #500 mL 02/05/23 pantoprazole 40 mg tablet,delayed release 40 mg PO BID #60 tabs 02/05/23 sucralfate 1 gram tablet 1 g PO 0700,1100,1600 #90 tabs 02/05/23 melatonin 3 mg tablet 3 mg PO QHS Insomnia 02/10/23 menthol 5 % topical gel (Biofreeze (menthol)) 1 ea topical BID back pain 02/10/23 acetaminophen 325 mg tablet 650 mg PO TID PAIN AND FEVER 02/11/23 cephalexin 500 mg capsule 500 mg PO TID #21 caps 02/13/23 memantine 10 mg tablet 10 mg PO BID #0 tabs 02/13/23 warfarin 4 mg tablet (Jantoven) 8 mg (2 x 4 mg) PO DINNER #0 tabs 02/13/23 Hospital Course Operations None Procedures None Summary of Care Provided Minutes Spent on Discharge: 31 Hospital Course: This 77-year-old white male was seen in the emergency room at [facility] after being transported in from a local extended care facility due to positive blood culture that had been obtained the day before in the emergency room. Patient had been transported to the emergency room the day before for altered mental status and was found to have a urinary tract infection, he was given p.o. antibiotics and discharged back to the nursing facility. Work-up in the emergency room included a CBC which showed a normal white blood cell count, patient was afebrile, he was able to answer simple questions appropriately. Patient was admitted to [place] [address], he was placed on IV antibiotics and seen in consultation by infectious diseases-patient recently had a pacemaker inserted, cardiology was contacted and case was discussed by phone with Dr. Chadnra, he did not feel that he could add any input to the care of the patient and felt that he could be contacted if the situation warranted it. Patient remained afebrile in the hospital, he remained nontoxic, and repeat blood cultures were obtained which were negative. On 02/13/2023, patient was seen and examined: On examination he appeared in good health and spirits. Vital signs as documented. Skin warm and dry and without overt rashes. Neck without JVD, neck was supple, trachea midline, thyroid was normal. Lungs clear bilaterally, normal air movement was noted. Heart exam notable for regular rhythm, normal sounds and absence of murmurs, rubs or g allops. Abdomen unremarkable and without evidence of organomegaly, masses, or abdominal aortic enlargement. Bowel sounds are present, abdomen is not distended. Extremities nonedematous, no cyanosis was noted, no clubbing was noted. Neuro: Cranial nerves II through XII are grossly intact, no focal motor deficits were noted, sensation to light touch and pinprick intact, motor exam 5/5 throughout. Psych: Patient is alert and oriented x3, he does not appear anxious or depressed, he does not appear agitated. Patient appears stable for discharge to the nursing home facility on 02/13/2023. Weight / BMI Weight Weight: 102.9 kg Body Mass Index (BMI) 30.0 ABG / Lab / Microbiology Data 02/13/23 08:14 Laboratory: Laboratory Results - last 24 hr 02/12/23 16:02: POC Glucose 152 H 02/12/23 22:42: POC Glucose 125 H 02/13/23 06:37: POC Glucose 113 H 02/13/23 08:14: WBC 5.4, RBC 2.76 L, Hgb 7.5 L, Hct 24.4 L, MCV 88.4, MCH 27.2, MCHC 30.7 L, RDW Std Deviation 54.5 H, RDW Coeff of Nathaniel 16.6 H, Plt Count 194, MPV 9.2, Immature Gran % (Auto) 1.100 H, Neut % (Auto) 67.5, Lymph % (Auto) 15.7 L, [place] % (Auto) 11.2 H, Eos % (Auto) 4.1, Baso % (Auto) 0.4, Absolute Neuts (auto) 3.6, Absolute Lymphs (auto) 0.84, Nucleated RBC % 0.9 02/13/23 11:18: POC Glucose 146 H Radiography Diagnostic Testing: Radiology Impression Echocardiogram 02/12/23 14:01 Interpretation Summary The estimated ejection fraction is 55-60 %. Unable to assess diastolic dysfunction. Mild (1+) mitral valve insufficiency. Ordering Physician: Smith Leija Performed By: Kwame Rodriges RCS Meaningful Use Info Meaningful Use Diagnoses (Choose all that apply): None applicable Discharge Plan Admission Admit Date/Time: 02/11/23 18:39 Primary Reason for Your Visit: Klebsiella pneumoniae bacteremia Attending Provider: Gabriel Giraldo Primary Care Provider: Luis Caldera Consulting Providers: Smith Leija Discharge Orders/Prescriptions Prescriptions: New warfarin [Jantoven] 4 mg Tablet 8 mg PO DINNER Qty: 0 0RF memantine 10 mg Tablet 10 mg PO BID Qty: 0 0RF Continued losartan 50 MG tablet 50 mg PO DAILY Hold Instructions: Hold for 1 week until kidney function returns to normal. atorvastatin 40 MG tablet 40 mg PO QHS tamsulosin 0.4 mg capsule 0.4 mg PO QHS Patient Comments: TAKE 1 CAPSULE BY MOUTH EVERYDAY AT BEDTIME amlodipine 2.5 mg Tablet 2.5 mg PO DAILY 30 Days Qty: 30 0RF sucralfate 1 gram Tablet 1 g PO 0700,1100,1600 Qty: 90 2RF ferrous sulfate 300 mg (60 mg iron)/5 mL liquid 300 mg PO DAILY Qty: 500 2RF pantoprazole 40 mg tablet,delayed release (DR/EC) 40 mg PO BID Qty: 60 2RF Biofreeze (menthol) 5 % gel 1 ea topical BID melatonin 3 mg Tablet 3 mg PO QHS Patient Comments: PRN PER [facility] MAR. acetaminophen 325 mg Tablet 650 mg PO TID Patient Comments: PRN PER [facility] MAR cephalexin 500 mg capsule 500 mg PO TID Qty: 21 0RF Rx Instructions: for 21 doses- start on 02/14/23 duloxetine [Cymbalta] 60 mg capsule,delayed release(DR/EC) 60 mg PO DAILY cholecalciferol (vitamin D3) 1,250 mcg (50,000 unit) tablet 1,250 mcg PO MO metformin 1,000 mg tablet 1,000 mg PO BID Hold Instructions: Hold for 1 week. insulin lispro [Humalog KwikPen Insulin] 100 unit/mL insulin pen See Protocol subcut ACHS Protocol: 6. Sliding Scale Insulin Custom Condition: mg/dl range Dose/Route: Number of Units Condition: 200-250 Dose/Route: 5 Condition: 251-300 Dose/Route: 8 Condition: 301-350 Dose/Route: 12 Condition: >351 Instruction: NOTIFY MD Protocol Text: Custom Sliding Scale Rx Instructions: 200-250 5 units; 251-300 8 units; 301-350 12 units; 351-1000 call sennosides-docusate sodium [Stool Softener-Stimulant Laxat] 8.6-50 mg Tablet 2 tab PO BID PRN (Reason: Constipation) Qty: 0 0RF ascorbic acid (vitamin C) 500 mg tablet 500 mg PO BID Qty: 60 2RF insulin glargine [Lantus Solostar U-100 Insulin] 100 UNITS/ML insulin pen 15 unit subcut DAILY Qty: 15 0RF Discontinued warfarin [Jantoven] 5 MG tablet 7.5 mg PO SUTUWETHFRSA Hold Instructions: Hold for 2 more days Patient Comments: blood thinner warfarin 5 mg tablet 10 mg PO MO Hold Instructions: Hold for 2 more days Patient Comments: 10 MG SATURDAY, 7.5 MG ALL OTHER DAYS. PATIENT HAS INR DRAWN BI-WEEKLY. memantine 10 mg tablet 10 mg PO QPM 30 Days Qty: 30 0RF Referrals / Follow Up: Luis Caldera MD [Primary Care Provider] - Júnior Chandra MD [Med Staff - Active Staff] - See Referral Note (As scheduled previously) Disposition Disposition (needs filled in before D/C Order can be placed): [facility] Charges/Coding Visit Charges Inpatient E&M: 84670 Disch Hosp >30min
--- NOTE | 2023-02-13 14:49 | PHA.DC.MR.R ---
Pharmacy [place] Med Reconciliation Pharmacy Service has performed discharge medication reconciliation for this patient. The patient's discharge medication list was reviewed for discrepancies and discrepancies were resolved. Medications at Discharge Home Medications losartan 50 mg tablet 50 mg PO DAILY blood pressure 03/24/18 atorvastatin 40 mg tablet 40 mg PO QHS cholesterol 05/22/18 tamsulosin 0.4 mg capsule 0.4 mg PO QHS PROSTATE 03/02/22 amlodipine 2.5 mg tablet 2.5 mg PO DAILY BP 30 days #30 tabs 07/11/22 cholecalciferol (vitamin D3) 1,250 mcg (50,000 unit) tablet 1,250 mcg PO MO SUPPLEMENT 01/21/23 duloxetine 60 mg capsule,delayed release (Cymbalta) 60 mg PO DAILY DEPRESSION 01/21/23 insulin lispro 100 unit/mL subcutaneous pen (Humalog KwikPen (U-100) Insulin) See Protocol subcut ACHS DM 01/21/23 metformin 1,000 mg tablet 1,000 mg PO BID DM 01/21/23 ascorbic acid (vitamin C) 500 mg tablet 500 mg PO BID #60 tabs 01/26/23 insulin glargine 100 unit/mL (3 mL) subcutaneous pen (Lantus Solostar U-100 Insulin) 15 unit (0.15 mL) subcut DAILY diabetes #15 mL 01/26/23 sennosides 8.6 mg-docusate sodium 50 mg tablet (Stool Softener-Stimulant Laxative) 2 tab PO BID PRN Constipation #0 tabs 01/26/23 ferrous sulfate 300 mg (60 mg iron)/5 mL oral liquid 300 mg (5 mL) PO DAILY #500 mL 02/05/23 pantoprazole 40 mg tablet,delayed release 40 mg PO BID #60 tabs 02/05/23 sucralfate 1 gram tablet 1 g PO 0700,1100,1600 #90 tabs 02/05/23 melatonin 3 mg tablet 3 mg PO QHS Insomnia 02/10/23 menthol 5 % topical gel (Biofreeze (menthol)) 1 ea topical BID back pain 02/10/23 acetaminophen 325 mg tablet 650 mg PO TID PAIN AND FEVER 02/11/23 cephalexin 500 mg capsule 500 mg PO TID #21 caps 02/13/23 memantine 10 mg tablet 10 mg PO BID #0 tabs 02/13/23 warfarin 4 mg tablet (Jantoven) 8 mg (2 x 4 mg) PO DINNER #0 tabs 02/13/23
[2023-02-13 15:02] VITALS: BP 134/70; PULSE 82; RESP 16; TEMP 36.1; O2SAT 100
--- NOTE | 2023-02-13 15:03 | CASEMGMT ---
Social Work Per physician, pt is ready for discharge today. Phone call to JACEY Worrell at [facility] and they are able to accept back today. Discharge orders and covid results faxed to Anaid at [facility]. Transportation arranged with [facility] for 4:30 orange picker. Phone call to pt and updated on discharge and time. agreeable. Nursing updated. Disposition: [facility], skilled level of care CARLA Chanel
--- NOTE | 2023-02-13 15:57 | PCM.PN.ID ---
Physical Exam Narrative Feeling better, no fever, no abd pain Const alert and no apparent distress Resp normal air movement and clear to auscultation bilaterally Cardio regular rate and regular rhythm GI soft to palpation, non-tender and non-distended Skin no rashes or lesions noted ID ID: Route of nutrition/ use of supplements: [] Nutritional Intake: [] IV Site: [] Rodrigues Catheter: [] Assessment & Plan Assessment/Plan (1) Bacteremia: PLAN: klebs bacteremia from urinary source with recent pacer placement 02/04/23. On ceftriaxone. TTE showed no veg. Ok for home with one more week po keflex 500mg tid. Will follow, d/w Dr. Giraldo (2) Presence of cardiac pacemaker:
== END 2023-02-13 16:51 | disposition skilled nursing facility (03) | DRG 690 ==
LOC: ED 18:44 → MS3 19:59
PROVIDERS: Admitting Provider Internal Medicine; Emergency Provider Emergency Medicine; PCP Family Medicine; Visit Provider Internal Medicine
DX: N39.0 Urinary tract infection, site not specified (principal); R78.81 Bacteremia; I49.5 Sick sinus syndrome; E11.40 Type 2 diabetes mellitus with diabetic neuropathy, unspecified; D50.9 Iron deficiency anemia, unspecified; B96.1 Klebsiella pneumoniae [K. pneumoniae] as the cause of diseases classified elsewhere; Z79.4 Long term (current) use of insulin; F03.A0 Unspecified dementia, mild, without behavioral disturbance, psychotic disturbance, mood disturbance, and anxiety; E78.5 Hyperlipidemia, unspecified; I10 Essential (primary) hypertension; I25.2 Old myocardial infarction; Z66 Do not resuscitate; Z95.0 Presence of cardiac pacemaker; Z79.01 Long term (current) use of anticoagulants; Z79.84 Long term (current) use of oral hypoglycemic drugs; Z79.899 Other long term (current) drug therapy; Z86.16 Personal history of COVID-19
CPT/HCPCS: 36415; 71045; 80048; 80076; 81001; 82962; 83605; 84145; 85025; 85610; 85730; 87040; 87077; 87086; 87088; 87186; 87426; 87428; 93005; 93306; 97162; 97166; 97802; 99285; J7030; J7040; J7050; Q9957; A4216; C8929; J0696; J2916

== ENCOUNTER → 2023-03-11 | Outpatient (REF) | payer MEDICARE, OTHER, SELFPAY ==
[2023-03-11 09:25] LABS: International Normalized Ratio 2.4; Prothrombin Time (Protime)PT. 26.6 SECONDS (11.7-14.9)
[2023-03-11 09:46] LABS: Hemoglobin A1c 5.5 % (3.8-5.6)
== END ==
LOC: OLS.ACH 05:00
PROVIDERS: PCP Family Medicine; Visit Provider Internal Medicine
DX: E11.40 Type 2 diabetes mellitus with diabetic neuropathy, unspecified (principal); Z79.01 Long term (current) use of anticoagulants
CPT/HCPCS: 36415; 83036; 85610

== ENCOUNTER → 2023-03-25 | Outpatient (REF) | payer MEDICARE, OTHER, SELFPAY ==
[2023-03-26 11:57] LABS: INR Fingerstick 1.9; Prothrombin Time Fingerstick 21.1 SEC (11.7-14.9)
[2023-03-26 11:58] LABS: INR Fingerstick 1.9; Prothrombin Time Fingerstick 21.1 SEC (11.7-14.9)
== END ==
LOC: OLS.ACH 05:00
PROVIDERS: PCP Family Medicine; Visit Provider Internal Medicine
DX: Z79.01 Long term (current) use of anticoagulants (principal)
CPT/HCPCS: 36416; 85610

== ENCOUNTER → 2023-04-01 | Outpatient (REF) | payer MEDICARE, OTHER, SELFPAY ==
[2023-04-01 08:28] LABS: INR Fingerstick 1.9
== END ==
LOC: OLS.ACH 05:00
PROVIDERS: PCP Family Medicine; Visit Provider Internal Medicine
DX: Z79.01 Long term (current) use of anticoagulants (principal)
CPT/HCPCS: 36416; 85610

== ENCOUNTER → 2023-04-08 | Outpatient (REF) | payer MEDICARE, OTHER, SELFPAY ==
[2023-04-08 09:56] LABS: INR Fingerstick 2.4; Prothrombin Time Fingerstick 25.9 SEC (11.7-14.9)
== END ==
LOC: OLS.ACH 04:00
PROVIDERS: PCP Family Medicine; Referring Provider Internal Medicine; Visit Provider Internal Medicine
DX: I48.0 Paroxysmal atrial fibrillation (principal)
CPT/HCPCS: 36416; 85610

== ENCOUNTER → 2023-04-09 | Outpatient (REF) | payer MEDICARE, OTHER, SELFPAY ==
[2023-04-09 08:39] LABS: Hemoglobin 11.3 g/dL (13.0-16.5); Mean Corp Hgb Conc 31.4 g/dL (32-36); Mean Corpuscular Hgb 27.2 pg (27.0-32.0); Mean Corpuscular Volume 86.5 fL (80-94); Mean Platelet Vol. 9.4 fl (6.2-12.0); Platelet Count 229 K/mm3 (150-450); RBC Distribution Width CV 14.6 % (11.6-14.6); RBC Distribution Width SD 46.8 fl (35.1-43.9); Red Blood Count 4.16 M/mm3 (4.6-6.2); White Blood Count 10.2 K/mm3 (4.4-11.0)
[2023-04-09 08:51] LABS: AST(SGOT) 7 U/L (15-37); Alanine Aminotransfer ALT/SGPT 22 U/L (16-61); Albumin, Serum 2.9 g/dL (3.2-5.0); Alkaline Phosphatase 105 U/L (45-117); Anion Gap 4 (5-15); BUN 28 mg/dL (7-18); BUN/Creat Ratio 29.9 RATIO (10-20); Chloride 106 mmol/L (98-107); Creatinine, Serum 0.94 mg/dL (0.70-1.30); EST Glomerular Filtration Rate 84 mL/min (>60); Est Glom Filt Rate - Afr Amer 101 mL/min (>60); Globulin 2.9 g/dL (2.2-4.2); Glucose 115 mg/dL (74-106); Potassium 3.9 mmol/L (3.5-5.1); Protein, Total 5.8 g/dL (6.4-8.2); Sodium Level 141 mmol/L (136-145)
== END ==
LOC: OLS.ACH 05:00
PROVIDERS: PCP Family Medicine; Visit Provider Internal Medicine
DX: E11.22 Type 2 diabetes mellitus with diabetic chronic kidney disease (principal); E11.40 Type 2 diabetes mellitus with diabetic neuropathy, unspecified; N18.31 Chronic kidney disease, stage 3a; D50.0 Iron deficiency anemia secondary to blood loss (chronic)
CPT/HCPCS: 36415; 80053; 85027

== ENCOUNTER → 2023-04-15 | Outpatient (REF) | payer MEDICARE, OTHER, SELFPAY ==
[2023-04-15 09:43] LABS: INR Fingerstick 2.5; Prothrombin Time Fingerstick 27.3 SEC (11.7-14.9)
== END ==
LOC: OLS.ACH 04:00
PROVIDERS: PCP Family Medicine; Referring Provider Internal Medicine; Visit Provider Internal Medicine
DX: Z79.01 Long term (current) use of anticoagulants (principal)
CPT/HCPCS: 36416; 85610

== ENCOUNTER → 2023-04-29 | Outpatient (REF) | payer MEDICARE, OTHER, SELFPAY ==
[2023-04-29 09:16] LABS: INR Fingerstick 2.8; Prothrombin Time Fingerstick 29.6 SEC (11.7-14.9)
== END ==
LOC: OLS.ACH 04:00
PROVIDERS: PCP Family Medicine; Referring Provider Internal Medicine; Visit Provider Internal Medicine
DX: Z79.01 Long term (current) use of anticoagulants (principal)
CPT/HCPCS: 36416; 85610

== ENCOUNTER → 2023-05-06 | Outpatient (REF) | payer MEDICARE, OTHER, SELFPAY ==
[2023-05-06 08:57] LABS: International Normalized Ratio 2.5; Prothrombin Time (Protime)PT. 27.5 SECONDS (11.7-14.9)
[2023-05-06 09:02] LABS: Hematocrit 38.5 % (40-54); Mean Corp Hgb Conc 31.2 g/dL (32-36); Mean Corpuscular Hgb 26.7 pg (27.0-32.0); Mean Corpuscular Volume 85.7 fL (80-94); Mean Platelet Vol. 9.5 fl (6.2-12.0); Platelet Count 238 K/mm3 (150-450); RBC Distribution Width CV 14.2 % (11.6-14.6); RBC Distribution Width SD 44.4 fl (35.1-43.9); Red Blood Count 4.49 M/mm3 (4.6-6.2); White Blood Count 9.4 K/mm3 (4.4-11.0)
[2023-05-06 09:25] LABS: AST(SGOT) 10 U/L (15-37); Alanine Aminotransfer ALT/SGPT 23 U/L (16-61); Alkaline Phosphatase 93 U/L (45-117); Anion Gap 5 (5-15); BUN 24 mg/dL (7-18); BUN/Creat Ratio 25.8 RATIO (10-20); Calcium,Total 9.1 mg/dL (8.5-10.1); Chloride 106 mmol/L (98-107); Creatinine, Serum 0.93 mg/dL (0.70-1.30); EST Glomerular Filtration Rate 84 mL/min (>60); Est Glom Filt Rate - Afr Amer 102 mL/min (>60); Globulin 2.9 g/dL (2.2-4.2); Glucose 135 mg/dL (74-106); Potassium 3.7 mmol/L (3.5-5.1); Protein, Total 5.9 g/dL (6.4-8.2); Sodium Level 140 mmol/L (136-145)
== END ==
LOC: OLS.ACH 05:00
PROVIDERS: PCP Family Medicine; Visit Provider Internal Medicine
DX: D50.0 Iron deficiency anemia secondary to blood loss (chronic) (principal); R19.7 Diarrhea, unspecified; Z79.01 Long term (current) use of anticoagulants
CPT/HCPCS: 36415; 80053; 85027; 85610

== ENCOUNTER → 2023-05-15 | Outpatient (REF) | payer MEDICARE, OTHER, SELFPAY ==
[2023-05-15 09:25] LABS: Bacteria 0 SEEN /hpf (None Seen); Mucous, Urine 0 SEEN /hpf (<or=2+); Red Blood Cells-Urine 0 SEEN /hpf (0-5); Squamous Epithelial Cells - UA 0 SEEN /hpf (0-5); White Blood Cells 0 SEEN /hpf (0-5)
[2023-05-15 09:41] LABS: Hemoglobin 11.6 g/dL (13.0-16.5); Mean Corp Hgb Conc 31.4 g/dL (32-36); Mean Corpuscular Hgb 26.5 pg (27.0-32.0); Mean Corpuscular Volume 84.7 fL (80-94); Mean Platelet Vol. 9.4 fl (6.2-12.0); Platelet Count 256 K/mm3 (150-450); RBC Distribution Width CV 14.1 % (11.6-14.6); RBC Distribution Width SD 43.3 fl (35.1-43.9); Red Blood Count 4.37 M/mm3 (4.6-6.2); White Blood Count 10.4 K/mm3 (4.4-11.0)
[2023-05-15 09:41] LABS: Color, Urine Yellow (Yellow); Glucose, Dipstick Normal (Normal); Ketone-Dipstick Negative (Negative); Leukocyte Esterase-Dipstick Negative /ul (Negative); Nitrite-Dipstick Negative (Negative); Occult Blood-Urine Negative /ul (Negative); Protein-Dipstick Negative (Negative); Urine Bilirubin Dipstick Negative (Negative); Urine Clarity Clear (Clear); Urine Urobilinogen Normal (Normal)
[2023-05-15 09:55] LABS: AST(SGOT) 9 U/L (15-37); Alanine Aminotransfer ALT/SGPT 21 U/L (16-61); Albumin, Serum 2.9 g/dL (3.2-5.0); Alkaline Phosphatase 97 U/L (45-117); Anion Gap 7 (5-15); BUN 30 mg/dL (7-18); BUN/Creat Ratio 30.7 RATIO (10-20); Calcium,Total 8.8 mg/dL (8.5-10.1); Chloride 105 mmol/L (98-107); Creatinine, Serum 0.98 mg/dL (0.70-1.30); EST Glomerular Filtration Rate 79 mL/min (>60); Est Glom Filt Rate - Afr Amer 96 mL/min (>60); Glucose 114 mg/dL (74-106); Potassium 4.1 mmol/L (3.5-5.1); Protein, Total 5.9 g/dL (6.4-8.2); Sodium Level 140 mmol/L (136-145)
== END ==
LOC: OLS.ACH 05:00
PROVIDERS: PCP Family Medicine; Visit Provider Internal Medicine
DX: I12.9 Hypertensive chronic kidney disease with stage 1 through stage 4 chronic kidney disease, or unspecified chronic kidney disease (principal); N18.9 Chronic kidney disease, unspecified; F03.A3 Unspecified dementia, mild, with mood disturbance; Z79.899 Other long term (current) drug therapy
CPT/HCPCS: 36415; 80053; 81001; 85027; 87086

== ENCOUNTER → 2023-05-20 | Outpatient (REF) | payer MEDICARE, OTHER, SELFPAY ==
[2023-05-20 09:43] LABS: INR Fingerstick 2.6; Prothrombin Time Fingerstick 27.6 SEC (11.7-14.9)
== END ==
LOC: OLS.ACH 04:00
PROVIDERS: PCP Family Medicine; Referring Provider Internal Medicine; Visit Provider Internal Medicine
DX: Z79.01 Long term (current) use of anticoagulants (principal)
CPT/HCPCS: 36416; 85610

== ENCOUNTER 2023-06-03 11:17 | Day surgery (SDC) | payer MEDICARE, OTHER, SELFPAY ==
[2023-06-03 11:45] VITALS: BP 109/76; PULSE 98; RESP 16; TEMP 36.6; O2SAT 94; BMI 30.5
[2023-06-03] MEDS: Lactated Ringers 1,000 ML 15 ML IV (11:50)
--- NOTE | 2023-06-03 11:50 | RAD_ITS ---
PROCEDURE: Caudal epidural steroid injection. DATE OF EXAMINATION: June 03, 2023. INDICATION: Male, 77 years old. Low back pain. FLUOROSCOPY TIME (if supplied): (12 seconds) minutes/seconds. 5.79 mGy. One image was submitted. RAD/Fluor Guidance for Spine Inj IMPRESSION: Intraoperative imaging provided for caudal epidural steroid injection. Electronically Signed: Ravindra Sierra MD at 11:08 EST ,
[2023-06-03] MEDS: MethylPREDNISolone Acetate 80 MG/ML Vial (12:08)
[2023-06-03] MEDS: Bupivacaine 0.25% 30 ML Vial (12:08)
[2023-06-03] MEDS: Lidocaine 1% (5 ml sdv) 5 ML Vial (12:08)
[2023-06-03] MEDS: 0.9% Normal Saline (Pres. free 10 ML Vial (12:09)
--- NOTE | 2023-06-03 12:11 | OP.PCM_ITS ---
Report of Operation Date of Procedure: 06/03/23 Pre-Operative Diagnosis: Lumbosacral radiculopathy, lumbosacral degenerative di sc disease, lumbosacral spinal stenosis Post-Operative Diagnosis: Lumbosacral radiculopathy, lumbosacral degenerative disc disease, lumbosacral spinal stenosis Surgery/Procedure Performed:: Diagnostic/therapeutic caudal epidural steroid injection under fluoroscopic guidance Type of Anesthesia: Local Estimated Blood Loss (mL): Minimal Description of Procedure: DESCRIPTION OF PROCEDURE: History and physical of today was reviewed. Risks and benefits of the procedure were explained. The patient understood and agreed to proceed. Informed consent was obtained. IV inserted per routine protocol. The patient was taken to the operating room and placed in the prone position with a pillow positioned underneath the abdomen. The lower back and tailbone area was prepped and draped in a sterile fashion using iodine x3. Under fluoroscopy guidance on a lateral view, the caudal space was identified. The skin and subcutaneous tissue was anesthetized with approximately 3 mL of 1% lidocaine using a 25-gauge regular needle. Under direct visualization with fluoroscopy, using a 22-gauge 3-1/2-inch spinal needle, the needle was advanced via the skin through the sacral hiatus. The tip of the needle was passed through the sacrococcygeal ligament and advanced to approximately S4 area. After negative aspiration of blood or CSF, a total of 3 mL of contrast was injected to confirm correct placement of the needle as well as cephalad spread. The spread was followed to approximately L5 area. After confirmation on AP as well as lateral view and repeated negative aspiration, a total of 15 mL of preservative-free 0.125% Marcaine with 80 mg of Depo-Medrol was injected easily. The needle was then removed intact. The patient experienced no sign or symptoms of intrathecal or intravascular injection. The patient experienced no paresthesia. The procedure was completed without any apparent difficulty or any complications. The patient appeared to tolerate it well. ASSESSMENT AND PLAN: This is a 77-year-old male with lumbosacral radiculopathy, lumbosacral degenerative disc disease, lumbosacral spinal stenosis status post diagnostic/therapeutic caudal epidural steroid injection, patient will continue his current medications, patient will follow in approximately 2 weeks for reevaluation. Complications None
[2023-06-03 12:50] VITALS: BP 134/90; PULSE 85; RESP 16; TEMP 36.2; O2SAT 97
[2023-06-03 13:21] LABS: Bedside Glucose 130 mg/dL (74-106)
== END 2023-06-03 12:52 | disposition home or self-care (01) ==
LOC: SDC 11:17 → AC 11:19
PROVIDERS: PCP Family Medicine; Referring Provider Anesthesiology Pain Medicine; Visit Provider Anesthesiology Pain Medicine
PROC: 3E0S3BZ Introduction of Anesthetic Agent into Epidural Space, Percutaneous Approach (ICD-10-PCS; CPT 62282; principal; 2023-06-03 12:45)
DX: M51.17 Intervertebral disc disorders with radiculopathy, lumbosacral region (principal); I48.91 Unspecified atrial fibrillation; Z79.4 Long term (current) use of insulin; E11.9 Type 2 diabetes mellitus without complications; M48.07 Spinal stenosis, lumbosacral region; M48.062 Spinal stenosis, lumbar region with neurogenic claudication; M47.817 Spondylosis without myelopathy or radiculopathy, lumbosacral region; E78.00 Pure hypercholesterolemia, unspecified; F32.A Depression, unspecified; Z79.899 Other long term (current) drug therapy; Z95.0 Presence of cardiac pacemaker; Z86.711 Personal history of pulmonary embolism; Z79.84 Long term (current) use of oral hypoglycemic drugs
CPT/HCPCS: 62323; 01992; 64483; 77003; 82962; J7120; J3490

== ENCOUNTER → 2023-06-10 | Outpatient (REF) | payer MEDICARE, OTHER, SELFPAY ==
[2023-06-10 07:55] LABS: INR Fingerstick 1.4; Prothrombin Time Fingerstick 15.9 SEC (11.7-14.9)
== END ==
LOC: OLS.ACH 04:00
PROVIDERS: PCP Family Medicine; Referring Provider Internal Medicine; Visit Provider Internal Medicine
DX: Z79.01 Long term (current) use of anticoagulants (principal)
CPT/HCPCS: 36416; 85610

== ENCOUNTER → 2023-06-17 | Outpatient (REF) | payer MEDICARE, OTHER, SELFPAY ==
[2023-06-17 08:10] LABS: INR Fingerstick 2.4; Prothrombin Time Fingerstick 26.1 SEC (11.7-14.9)
== END ==
LOC: OLS.ACH 05:00
PROVIDERS: PCP Family Medicine; Visit Provider Internal Medicine
DX: I48.0 Paroxysmal atrial fibrillation (principal)
CPT/HCPCS: 36416; 85610

== ENCOUNTER → 2023-06-24 | Outpatient (REF) | payer MEDICARE, OTHER, SELFPAY ==
[2023-06-24 08:05] LABS: INR Fingerstick 3.4; Prothrombin Time Fingerstick 36.4 SEC (11.7-14.9)
== END ==
LOC: OLS.ACH 04:00
PROVIDERS: PCP Family Medicine; Visit Provider Internal Medicine
DX: I48.0 Paroxysmal atrial fibrillation (principal)
CPT/HCPCS: 36416; 85610

== ENCOUNTER → 2023-06-25 | Outpatient (REF) | payer MEDICARE, OTHER, SELFPAY ==
--- OUTSIDE RECORDS SUMMARY | 2023-06-25 04:26 | XMS RPT_ITS | CCD ---
Author Name Unknown Address [address] [place] [address] Organization [facility] Care Team Providers Care Business Development Director Name Role Phone Abdulaziz Caldera MD Primary Care Provider PHYSICIAN, NOT RECORDED Primary Care Physician U Abdulaziz Bajwa MD Primary Care Provider Abdulaziz Caldera MD Primary Care Provider JI COLBERT., DR. VELÁZQUEZ Attending Unavaila alexy PHYSICIAN, NOT RECORDED Primary Care Unavaila Abdulaziz Clay MD Primary Care Provider ABDULAZIZ CALDERA Primary Care Unavailab ABDULAZIZ Zuniga Referring Unavailab ABDULAZIZ Zuniga Primary Care Unavailab ABDULAZIZ Zuniga Referring Unavailab ARMINDA Schneider Attending Unavailable ABDULAZIZ CALDERA Primary Care Unavailab ABDULAZIZ Zuniga Attending Unavailab ABDULAZIZ Zuniga Primary Care Unavailab ABDULAZIZ Zuniga Referring Unavailab ABDULAZIZ Zuniga Primary Care Unavailab le MOISÉS, TAMIE Y Referring Unavailable ABDULAZIZ CALDERA Primary Care Unavailab le MOISÉS, TAMIE Y Referring Unavailable ABDULAZIZ CALDERA Primary Care Unavailab le MOISÉS, TAMIE Y Referring Unavailable O'CHAVOJUSTINA DILLARD Attending Unavailable ABDULAZIZ CALDERA Primary Care Unavailab le MOISÉS, TAMIE Y Referring Unavailable O'CHAVOJUSTINA DILLARD Attending Unavailable ABDULAZIZ CALDERA Primary Care Unavailab le MOISÉS, TAMIE Y Referring Unavailable O'CHAVOJUSTINA DILLARD Attending Unavailable ABDULAZIZ CALDERA Primary Care Unavailab ABDULAZIZ Zuniga Referring Unavailab ABDULAZIZ Zuniga Primary Care Unavailab ABDULAZIZ Zuniga Attending Unavailab ABDULAZIZ Zuniga Primary Care Unavailab ABDULAZIZ Zuniga Referring Unavailab ABDULAZIZ Zuniga Primary Care Unavailab ABDULAZIZ Zuniga Referring Unavailab ABDULAZIZ Zuniga Primary Care Unavailab BOBBI Sanchez Referring Unavailable BOBBI GARCIA Attending Unavailable ABDULAZIZ CALDERA Primary Care Unavailab ABDULAZIZ Zuniga Referring Unavailab ABDULAZIZ Zuniga Primary Care Unavailab ABDULAZIZ Zuniga Referring Unavailab ABDULAZIZ Zuniga Primary Care Unavailab TAMIE Campos Attending Unavailable ABDULAZIZ CALDERA Primary Care Unavailab le TESTARMINDA ACEVEDO Attending Unavailable ABDLUAZIZ CALDERA Primary Care Unavailab ABDULAZIZ Zuniga Referring Unavailab ABDULAZIZ Zuniga Primary Care Unavailab le MOISÉS, TAMIE Y Referring Unavailable O'JUSTINA TONY Attending Unavailable ABDULAZIZ CALDERA Primary Care Unavailab le MOISÉS, TAMIE Y Referring Unavailable O'CHAVOJUSTINA DILLARD Attending Unavailable ABDULAZIZ CALDERA Primary Care Unavailab le MOISÉS, TAMIE Y Referring Unavailable O'JUSTINA TONY Attending Unavailable ABDULAZIZ CALDERA Primary Care Unavailab ABDULAZIZ Zuniga Attending Unavailab ABDULAZIZ Zuniga Primary Care Unavailab JUSTINA Jones Referring Unavailable BOBBI GARCIA Attending Unavailable ABDULAZIZ CALDERA Primary Care Unavailab ARMINDA Brady Referring Unavailable ARMINDA OBREGON Attending Unavailable ABDULAZIZ CALDERA Primary Care Unavailab ABDULAZIZ Zuniga Attending Unavailab ABDULAZIZ Zuniga Primary Care Unavailab ABDULAZIZ Zuniga Referring Unavailab le O'CHAVOJUSTINA DILLARD Attending Unavailable ABDULAZIZ CALDERA Primary Care Unavailab le MOISÉS, TAMIE Y Referring Unavailable O'CHAVOJUSTINA DILLARD Attending Unavailable Allergies Allergy Classification Reported Allergen(s) Allergy Type Date of Onset Reaction(s) Facility (20 sources) pantoprazole; Translations: [PANTOPRAZOLE] Drug Allergy 03-12-2020 Diarrhea [facility] Medications Current Medications Medication Drug Class(es) Dates Sig (Normalized) Sig (Original) atorvastatin 40 mg oral tablet (20 sources) HMG-CoA Reductase Inhibitor Start: 07-11-2021 End: 04-10-2023 take 1 tablet by mouth once daily for hyperlipidemia atorvastatin (LIPITOR) 40 mg tablet Indications: Hyperlipidemia with target LDL less than 100 Take 1 tablet by mouth once daily. For cholesterol. 90 tablet 3 04/10/2022 04/10/2023 Active Completed/Discontinued Medications Medication Drug Class(es) Dates Sig (Normalized) Sig (Original) amLODIPine 2.5 mg oral tablet (20 sources) Dihydropyridine Calcium Channel Ihsan Start: 07-25-2022 End: 07-25-2022 take 1 tablet by mouth once daily amLODIPine (NORVASC) 2.5 mg tablet Take 1 tablet by mouth once daily. 30 tablet 5 07/25/2022 Active Problems Active Problems Problem Classification Problem Date Documented Da te Episodic/Chronic Acute and unspecified renal failure (1 source) Acute injury of kidney; Translations: [Acute kidney failure, unspecified] Episodic Acute myocardial infarction (1 source) Myocardial infarction; Translations: [Non-ST elevation (NSTEMI) myocardial infarction] Chronic Anxiety disorders (1 source) Generalized anxiety disorder; Translations: [Generalized anxiety disorder] Chronic Aortic; peripheral; and visceral artery aneurysms (13 sources) Thoracic aortic aneurysm without rupture; Translations: [Thoracic aortic aneurysm, without rupture] Onset: 12-03-2022 Chronic Cardiac dysrhythmias (11 sources) Paroxysmal atrial fibrillation; Translations: [Paroxysmal atrial fibrillation] Onset: 12-03-2022 12-03-2022 Chronic Conditions associated with dizziness or vertigo (1 source) Dizziness; Translations: [Dizziness and giddiness] Episodic Coronary atherosclerosis and other heart disease (1 source) Coronary atherosclerosis; Translations: [Atherosclerotic heart disease of resighini coronary artery without angina pectoris] Chronic Diabetes mellitus with complications (20 sources) Polyneuropathy due to type 2 diabetes mellitus; Translations: [Type 2 diabetes mellitus with diabetic polyneuropathy] Onset: 09-08-2010 10-26-2020 Chronic Disorders of lipid metabolism (20 sources) Hyperlipidemia; Translations: [Hyperlipidemia, unspecified] Onset: 04-01-2012 05-16-2015 Chronic Diverticulosis and diverticulitis (1 source) Diverticular disease; Translations: [Diverticulosis of intestine, part unspecified, without perforation or abscess without bleeding] Chronic Essential hypertension (20 sources) Benign essential hypertension; Translations: [Essential (primary) hypertension] Onset: 10-28-2012 10-28-2012 Chronic Genitourinary symptoms and ill-defined conditions (4 sources) Urinary incontinence; Translations: [Unspecified urinary incontinence] Chronic Genitourinary symptoms and ill-defined conditions (1 source) Nocturia; Translations: [Nocturia] Episodic Hyperplasia of prostate (20 sources) Nocturia due to benign prostatic hypertrophy; Translations: [Benign prostatic hyperplasia with lower urinary tract symptoms] Onset: 08-09-2022 Chronic Malaise and fatigue (2 sources) Asthenia; Translations: [Weakness] Episodic Mood disorders (2 sources) Mild depression; Translations: [Mild depression] Chronic Mycoses (2 sources) Onychomycosis; Translations: [Tinea unguium] Episodic Nutritional deficiencies (20 sources) Vitamin D deficiency; Translations: [Vitamin D deficiency, unspecified] Onset: 01-03-2022 Chronic Open wounds of extremities (2 sources) Amputated toe of right foot; Translations: [Complete traumatic amputation of one right lesser toe, initial encounter] Chronic Open wounds of extremities (1 source) Disorder of lower extremity; Translations: [Unspecified open wound, left lower leg, initial encounter] Episodic Osteoarthritis (19 sources) Primary gonarthrosis, bilateral; Translations: [Bilateral primary osteoarthritis of knee] Onset: 11-29-2022 Chronic Other and unspecified benign neoplasm (1 source) Polyp of cecum; Translations: [Polyp of colon] Episodic Other bone disease and musculoskeletal deformities (20 sources) Absence of toe; Translations: [Acquired absence of right great toe] Onset: 07-20-2019 07-20-2019 Chronic Other connective tissue disease (2 sources) Pain of toe of left foot; Translations: [Pain in left toe(s)] Episodic Other injuries and conditions due to external causes (11 sources) At high risk for fall; Translations: [History of falling] Onset: 11-29-2022 11-29-2022 Episodic Other nervous system disorders (1 source) Polyneuropathy; Translations: [Polyneuropathy, unspecified] Chronic Other nervous system disorders (1 source) Other chronic pain; Translations: [Chronic bilateral low back pain without sciatica] Onset: 11-29-2022 Chronic Other nutritional; endocrine; and metabolic disorders (20 sources) Obese class II; Translations: [Obesity, unspecified] Onset: 08-19-2017 08-19-2017 Chronic Other screening for suspected conditions (not mental disorders or infectious disease) (5 sources) Patient encounter status; Translations: [Encounter for screening for malignant neoplasm of colon] Episodic Other upper respiratory infections (2 sources) Chronic frontal sinusitis; Translations: [Chronic frontal sinusitis] Onset: 08-06-2022 Chronic Residual codes; unclassified (2 sources) Altered mental status; Translations: [Altered mental status, unspecified] Episodic Residual codes; unclassified (1 source) Driving fitness status; Translations: [Other specified personal risk factors, not elsewhere classified] Episodic Unclassified (1 source) Chronic bilateral low back pain without sciatica; Translations: [Chronic bilateral low back pain without sciatica] Onset: 11-29-2022 Viral infection (2 sources) Disease caused by 2019-nCoV; Translations: [COVID-19] Episodic Past or Other Problems Problem Classification Problem Date Documented Date Episodic/Chronic Biliary tract disease (20 sources) Biliary calculus; Translations: [Calculus of gallbladder without cholecystitis without obstruction] Onset: 09-25-2013 09-25-2013 Episodic Complication of device; implant or graft (20 sources) Prosthetic aortic valve regurgitation; Translations: [Other specified complication of cardiac prosthetic devices, implants and grafts, initial encounter] Onset: 07-02-2022 07-02-2022 Episodic Deficiency and other anemia (20 sources) Iron deficiency anemia; Translations: [Iron deficiency anemia, unspecified] Onset: 03-20-2019 03-20-2019 Episodic E Codes: Fall (1 source) Unspecified fall, initial encounter; Translations: [Fall in home, initial encounter] Onset: 01-04-2023 Episodic E Codes: Place of occurrence (1 source) Unspecified place in unspecified non-institutional (private) residence as the place of occurrence of the external cause; Translations: [Fall in home, initial encounter] Onset: 01-04-2023 Episodic Other aftercare (20 sources) Long-term current use of anticoagulant; Translations: [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] Onset: 05-07-2018 11-06-2018 Episodic Other aftercare (1 source) [facility] (current) use of anticoagulants; Translations: [Chronic anticoagulation] Onset: 11-06-2018 Episodic Other aftercare (1 source) termite renewal inspector (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) use of insulin; Translations: [Type 2 diabetes mellitus with diabetic neuropathy, with long-term current use of insulin (HCC)] Onset: 08-13-2022 Episodic Other connective tissue disease (1 source) Facial weakness; Translations: [Facial droop] Onset: 01-04-2023 Episodic Other injuries and conditions due to external causes (1 source) History of falling; Translations: [At high risk for falls] Onset: 11-29-2022 Episodic Other nervous system disorders (20 sources) Abnormal gait due to impairment of balance; Translations: [Other abnormalities of gait and mobility] Onset: 01-12-2022 Episodic Residual codes; unclassified (20 sources) History of aortic valve repair; Translations: [Other specified postprocedural states] Onset: 06-20-2016 06-20-2016 Episodic Residual codes; unclassified (2 sources) Disorientation, unspecified; Translations: [Delirium] Onset: 07-19-2022 Episodic Residual codes; unclassified (1 source) Other specified postprocedural states; Translations: [Status post aortic valve repair] Onset: 06-20-2016 Episodic Spondylosis; intervertebral disc disorders; other back problems (20 sources) Lumbar radiculopathy; Translations: [Radiculopathy, lumbar region] Onset: 03-20-2019 03-20-2019 Episodic Syncope (3 sources) Syncope; Translations: [Syncope and collapse] Onset: 07-19-2022 Episodic Results Test Name Value Interpretation Reference Range [facility] Vital Signs Date Time Vital Sign Value Performing Clinician Scott quinn 09-07-2022 11:01-0500 Body height 185.4 cm Tamie Kaur MD Work Phone: [facility] 09-07-2022 11:01-0500 Body weight 113.4 kg Tamie Kaur MD Work Phone: [facility] 09-07-2022 11:01-0500 Diastolic blood pressure 57 mm[Hg] Tamie Kaur MD Work Phone: [facility] 09-07-2022 11:01-0500 Heart rate 64 /min Tamie Kaur MD Work Phone: [facility] 09-07-2022 11:01-0500 Respiratory rate 16 /min Tamie Kaur MD Work Phone: [facility] 09-07-2022 11:01-0500 SaO2% (BldA) [Mass fraction] 99 % Tamie Kaur MD Work Phone: [facility] 09-07-2022 11:01-0500 Systolic blood pressure 124 mm[Hg] Tamie Kaur MD Work Phone: [facility] 08-09-2022 16:35-0500 Body weight 113.4 kg Abdulaziz Caldera MD Work Phone: [facility] 08-09-2022 16:35-0500 Diastolic blood pressure 62 mm[Hg] Abdulaziz Caldera MD Work Phone: [facility] 08-09-2022 16:35-0500 Heart rate 64 /min Abdulaziz Caldera MD Work Phone: [facility] 08-09-2022 16:35-0500 Respiratory rate 16 /min Abdulaziz Caldera MD Work Phone: [facility] 08-09-2022 16:35-0500 SaO2% (BldA) [Mass fraction] 96 % Abdulaziz Caldera MD Work Phone: [facility] 08-09-2022 16:35-0500 Systolic blood pressure 112 mm[Hg] Abdulaziz Caldera MD Work Phone: [facility] 04-17-2022 11:23-0400 Body height 185.4 cm Tamie Kaur MD Work Phone: [facility] 04-17-2022 11:23-0400 Body weight 114.31 kg Tamie Kaur MD Work Phone: [facility] 04-17-2022 11:23-0400 Diastolic blood pressure 71 mm[Hg] Tamie Kaur MD Work Phone: [facility] 04-17-2022 11:23-0400 Heart rate 72 /min Tamie Kaur MD Work Phone: [facility] 04-17-2022 11:23-0400 Respiratory rate 18 /min Tamie Kaur MD Work Phone: [facility] 04-17-2022 11:23-0400 SaO2% (BldA) [Mass fraction] 98 % Tamie Kaur MD Work Phone: [facility] 04-17-2022 11:23-0400 Systolic blood pressure 116 mm[Hg] Tamie Kaur MD Work Phone: [facility] 04-16-2022 13:09-0400 Body height 185.4 cm Abdulaziz Caldera MD Work Phone: [facility] 04-16-2022 13:09-0400 Body weight 114.31 kg Abdulaziz Caldera MD Work Phone: [facility] 04-16-2022 13:09-0400 Diastolic blood pressure 72 mm[Hg] Abdulaziz Caldera MD Work Phone: [facility] 04-16-2022 13:09-0400 Heart rate 70 /min Abdulaziz Caldera MD Work Phone: [facility] 04-16-2022 13:09-0400 Respiratory rate 16 /min Abdulaziz Caldera MD Work Phone: [facility] 04-16-2022 13:09-0400 SaO2% (BldA) [Mass fraction] 98 % Abdulaziz Caldera MD Work Phone: [facility] 04-16-2022 13:09-0400 Systolic blood pressure 132 mm[Hg] Abdulaziz Caldera MD Work Phone: [facility] 04-06-2022 09:36-0400 Body weight 114.31 kg Roselia Madrigal [employer] Work Phone: [facility] 04-06-2022 09:36-0400 Diastolic blood pressure 62 mm[Hg] Roselia Podlogar [employer] Work Phone: [facility] 04-06-2022 09:36-0400 Heart rate 62 /min Roselia Podlogar [employer] Work Phone: [facility] 04-06-2022 09:36-0400 Respiratory rate 16 /min Roselia Podlogar [employer] Work Phone: [facility] 04-06-2022 09:36-0400 SaO2% (BldA) [Mass fraction] 97 % Roselia Podlogar [employer] Work Phone: [facility] 04-06-2022 09:36-0400 Systolic blood pressure 112 mm[Hg] Roselia Podlogar [employer] Work Phone: [facility] 03-07-2022 11:12-0400 Body weight 114.76 kg Abdulaziz Caldera MD Work Phone: [facility] 03-07-2022 11:12-0400 Diastolic blood pressure 70 mm[Hg] Abdulaziz Caldera MD Work Phone: [facility] 03-07-2022 11:12-0400 Heart rate 64 /min Abdulaziz Caldera MD Work Phone: [facility] 03-07-2022 11:12-0400 Respiratory rate 16 /min Abdulaziz Caldera MD Work Phone: [facility] 03-07-2022 11:12-0400 Systolic blood pressure 118 mm[Hg] Abdulaziz Caldera MD Work Phone: [facility] 03-05-2022 12:00-0400 Diastolic blood pressure 60 mm[Hg] Rosa Elena Lemon PT [facility] 03-05-2022 12:00-0400 Systolic blood pressure 112 mm[Hg] Rosa Elena Lemon PT [facility] 01-12-2022 08:00-0400 Diastolic blood pressure 78 mm[Hg] Rosa Elena Lemon PT [facility] 01-12-2022 08:00-0400 Systolic blood pressure 130 mm[Hg] Rosa Elena Lemon PT [facility] 01-05-2022 09:56-0400 Body height 185.4 cm Tamie Kaur MD Work Phone: [facility] 01-05-2022 09:56-0400 Body weight 111.58 kg Tamie Kaur MD Work Phone: [facility] 01-05-2022 09:56-0400 Diastolic blood pressure 62 mm[Hg] Tamie Kaur MD Work Phone: [facility] 01-05-2022 09:56-0400 Heart rate 58 /min Tamie Kaur MD Work Phone: [facility] 01-05-2022 09:56-0400 Respiratory rate 16 /min Tamie Kaur MD Work Phone: [facility] 01-05-2022 09:56-0400 SaO2% (BldA) [Mass fraction] 97 % Tamie Kaur MD Work Phone: [facility] 01-05-2022 09:56-0400 Systolic blood pressure 117 mm[Hg] Tamie Kaur MD Work Phone: [facility] 01-01-2022 10:12-0400 Body temperature 97.39 [degF] Abdulaziz Caldera MD Work Phone: [facility] 01-01-2022 10:12-0400 Body weight 111.77 kg Abdulaziz Caldera MD Work Phone: [facility] 01-01-2022 10:12-0400 Diastolic blood pressure 64 mm[Hg] Abdulaziz Caldera MD Work Phone: [facility] 01-01-2022 10:12-0400 Heart rate 47 /min Abdulaziz Caldera MD Work Phone: [facility] 01-01-2022 10:12-0400 Respiratory rate 18 /min Abdulaziz Caldera MD Work Phone: [facility] 01-01-2022 10:12-0400 SaO2% (BldA) [Mass fraction] 98 % Abdulaziz Caldera MD Work Phone: [facility] 01-01-2022 10:12-0400 Systolic blood pressure 112 mm[Hg] Abdulaziz Caldera MD Work Phone: [facility] 01-01-2022 08:55-0400 Body weight 112.49 kg Justina Loenie [employer] Work Phone: [facility] 01-01-2022 08:55-0400 Diastolic blood pressure 74 mm[Hg] Justina Leonie [employer] Work Phone: [facility] 01-01-2022 08:55-0400 Heart rate 60 /min Justina Leonie [employer] Work Phone: [facility] 01-01-2022 08:55-0400 Respiratory rate 18 /min Justina Leonie [employer] Work Phone: [facility] 01-01-2022 08:55-0400 Systolic blood pressure 147 mm[Hg] Justina Leonie [employer] Work Phone: [facility] 12-27-2021 21:22-0400 Diastolic blood pressure 71 mm[Hg] DR MELANIA WORKMAN MD [facility] 12-27-2021 21:22-0400 Heart rate 73 /min DR MELANIA WORKMAN MD [facility] 12-27-2021 21:22-0400 Respiratory rate 24 /min DR MELANIA WORKMAN MD [facility] 12-27-2021 21:22-0400 Systolic blood pressure 121 mm[Hg] DR MELANIA WORKMAN MD [facility] 12-27-2021 20:06-0400 Diastolic blood pressure 59 mm[Hg] DR MELANIA WORKMAN MD [facility] 12-27-2021 20:06-0400 Heart rate 80 /min DR MELANIA WORKMAN MD [facility] 12-27-2021 20:06-0400 Respiratory rate 26 /min DR MELANIA WORKMAN MD [facility] 12-27-2021 20:06-0400 Systolic blood pressure 112 mm[Hg] DR MELANIA WORKMAN MD [facility] 12-27-2021 19:19-0400 Body temperature 98.6 [degF] DR MELANIA WORKMAN MD [facility] 12-27-2021 19:19-0400 Diastolic blood pressure 76 mm[Hg] DR MELANIA WORKMAN MD [facility] 12-27-2021 19:19-0400 Heart rate 82 /min DR MELANIA WORKMAN MD [facility] 12-27-2021 19:19-0400 Respiratory rate 26 /min DR MELANIA WORKMAN MD [facility] 12-27-2021 19:19-0400 Systolic blood pressure 138 mm[Hg] DR MELANIA WORKMAN MD [facility] 12-27-2021 17:36-0400 Body temperature 102.56 [degF] DR MELANIA WORKMAN MD [facility] 12-27-2021 17:36-0400 Body weight [address] MELANIA WORKMAN MD [facility] 12-27-2021 17:36-0400 Heart rate 104 /min DR MELANIA WORKMAN MD [facility] 12-14-2021 15:10-0400 Body temperature 98.2 [degF] Abdulaziz Caldera MD Work Phone: [facility] 12-14-2021 15:10-0400 Body weight 110.77 kg Abdulaziz Caldera MD Work Phone: [facility] 12-14-2021 15:10-0400 Diastolic blood pressure 70 mm[Hg] Abdulaziz Caldera MD Work Phone: [facility] 12-14-2021 15:10-0400 Heart rate 54 /min Abdulaziz Caldera MD Work Phone: [facility] 12-14-2021 15:10-0400 Respiratory rate 16 /min Abdulaziz Caldera MD Work Phone: [facility] 12-14-2021 15:10-0400 SaO2% (BldA) [Mass fraction] 96 % Abdulaziz Caldera MD Work Phone: [facility] 12-14-2021 15:10-0400 Systolic blood pressure 130 mm[Hg] Abdulaziz Caldera MD Work Phone: [facility] 12-08-2021 16:23-0400 Diastolic blood pressure 64 mm[Hg] Abdulaziz Caldera MD Work Phone: [facility] 12-08-2021 16:23-0400 Heart rate 85 /min Abdulaziz Caldera MD Work Phone: [facility] 12-08-2021 16:23-0400 Systolic blood pressure 110 mm[Hg] Abdulaziz Caldera MD Work Phone: [facility] 10-23-2021 13:05-0400 Body temperature 97.3 [degF] Marcella Mer Rouge PA-C Work Phone: [facility] 10-23-2021 13:05-0400 Body weight 114.58 kg Marcella Xavier PA-C Work Phone: [facility] 10-23-2021 13:05-0400 Diastolic blood pressure 56 mm[Hg] Marcella Mer [place] PA-C Work Phone: [facility] 10-23-2021 13:05-0400 Heart rate 85 /min Marcella Mer [place] PA-C Work Phone: [facility] 10-23-2021 13:05-0400 SaO2% (BldA) [Mass fraction] 98 % Marcella Xavier PA-C Work Phone: [facility] 10-23-2021 13:05-0400 Systolic blood pressure 132 mm[Hg] Marcella Xavier PA-C Work Phone: [facility] 10-10-2021 10:07-0400 Diastolic blood pressure 68 mm[Hg] Richard Jones MD Work Phone: [facility] 10-10-2021 10:07-0400 Heart rate 69 /min Richard Jones MD Work Phone: [facility] 10-10-2021 10:07-0400 Respiratory rate 16 /min Richadr Jones MD Work Phone: [facility] 10-10-2021 10:07-0400 SaO2% (BldA) [Mass fraction] 98 % Richard Jones MD Work Phone: [facility] 10-10-2021 10:07-0400 Systolic blood pressure 150 mm[Hg] Richard Jones MD Work Phone: [facility] 10-10-2021 08:01-0400 Body temperature 97 [degF] Richard Jones MD Work Phone: [facility] Encounters Encounter Date Encounter Type Care Provider Facility Start: 01-28-2023 Telephone encounter Luis Caldera MD Work Phone: [facility] [place] Procedures Date Procedure Procedure Detail Performing Clinician Start: 04-06-2022 INFLUENZA SEASONAL QUADRIVALENT HIGH DOSE AGE 65+ Roselia Podlogar [employer] Work Phone: Start: 04-06-2022 PFIZER-BIONTECH COVI D-19 BIVALENT BOOSTER VACCINE, AGE 12+ YR Roselia Podlogar [employer] Work Phone: Start: 04-06-2022 Adult depression scr eening assessment Roselia Podlogar CROZE CUTTER.HAT CUTTER Work Phone: Start: 03-07-2022 PROTHROMBIN TIME/PT Chr mine Caldera MD Work Phone: Start: 03-07-2022 Adult depression scr eening assessment Abdulaziz Caldera MD Work Phone: Start: 01-09-2022 Echo tthrc r-t 2d w/wom-mode compl spec&colr d Justina E Leonie CROZE CUTTER.HAT CUTTER Work Phone: Start: 01-01-2022 Urnls dip stick/tabl et rgnt auto w/o microscopy Abdulaziz Caldera MD Work Phone: Start: 10-10-2021 Gluc bld gluc mntr d ev cleared fda spec home use Richard Jones MD Work Phone: Start: 10-10-2021 Colon ca scrn not hi rsk ind [place] PAJay Jay Work Phone: Start: 10-10-2021 Gluc bld gluc mntr d ev cleared fda spec home use Richard Jones MD Work Phone: Start: 10-10-2021 Colonoscopy Richard erickson MD Work Phone: Start: 10-28-2020 Adult depression scr eening assessment Abdulaziz Caldera MD Work Phone: Start: 03-12-2011 Colonoscopy Luis Caldera MD Work Phone: Plan of Treatment Date Care Activity Detail Author Start: 10-11-2031 Colonoscopy COLONOSCOPY [facility] Start: 10-11-2031 COLORECTAL CANCER SCREENING COLORECTAL CANCER SCREENING [facility] Start: 10-10-2024 Colonoscopy COLONOSCOPY [facility] Start: 10-10-2024 COLORECTAL CANCER SCREENING COLORECTAL CANCER SCREENING [facility] Start: 01-05-2024 ANNUAL PCP TEAM CHRONIC DISEASE VISIT ANNUAL PCP TEAM CHRONIC DISEASE VISIT [facility] Start: 01-05-2024 BP CONTROLLED (<130/80) BP CONTROLLED (<130/80) [facility] Start: 12-04-2023 BP CONTROLLED (<130/80) BP CONTROLLED (<130/80) [facility] Start: 11-20-2023 ANNUAL PCP TEAM CHRONIC DISEASE VISIT ANNUAL PCP TEAM CHRONIC DISEASE VISIT [facility] Start: 11-20-2023 BP CONTROLLED (<130/80) BP CONTROLLED (<130/80) [facility] Start: 09-07-2023 BP CONTROLLED (<130/80) BP CONTROLLED (<130/80) [facility] Start: 08-13-2023 HEMOGLOBIN/HEMATOCRIT HEMOGLOBIN/HEMATOCRIT [facility] Start: 08-13-2023 SERUM CREATININE SERUM CREATININE [facility] Start: 08-09-2023 ANNUAL PCP TEAM CHRONIC DISEASE VISIT ANNUAL PCP TEAM CHRONIC DISEASE VISIT [facility] Start: 08-09-2023 BP CONTROLLED (<130/80) BP CONTROLLED (<130/80) [facility] Start: 07-12-2023 ANNUAL PCP TEAM CHRONIC DISEASE VISIT ANNUAL PCP TEAM CHRONIC DISEASE VISIT [facility] Start: 07-12-2023 BP CONTROLLED (<130/80) BP CONTROLLED (<130/80) [facility] Start: 04-17-2023 BP CONTROLLED (<130/80) BP CONTROLLED (<130/80) [facility] Start: 04-16-2023 ANNUAL PCP TEAM CHRONIC DISEASE VISIT ANNUAL PCP TEAM CHRONIC DISEASE VISIT [facility] Start: 04-06-2023 Adult depression screening assessment DEPRESSION SCREENING [facility] Start: 04-06-2023 ANNUAL PCP TEAM CHRONIC DISEASE VISIT ANNUAL PCP TEAM CHRONIC DISEASE VISIT [facility] Start: 04-06-2023 BP CONTROLLED (<130/80) BP CONTROLLED (<130/80) [place] [facility] Start: 03-30-2023 3 comp foot exam completed DIABETIC FOOT EXAM [facility] Start: 03-15-2023 Influenza vaccination INFLUENZA (#1) [facility] Start: 03-07-2023 Adult depression screening assessment DEPRESSION SCREENING [facility] Start: 03-07-2023 ANNUAL PCP TEAM CHRONIC DISEASE VISIT ANNUAL PCP TEAM CHRONIC DISEASE VISIT [facility] Start: 03-07-2023 BP CONTROLLED (<130/80) BP CONTROLLED (<130/80) [facility] Start: 03-07-2023 SERUM CREATININE SERUM CREATININE [facility] Start: 03-05-2023 BP CONTROLLED (<130/80) BP CONTROLLED (<130/80) [facility] Start: 03-02-2023 Hepatitis B screening URINE ALBUMIN:CREATININE RATIO [facility] Start: 02-10-2023 Hemoglobin A1c/Hemoglobin.total in Blood HBA1C [facility] Start: 01-05-2023 BP CONTROLLED (<130/80) BP CONTROLLED (<130/80) [facility] Start: 01-01-2023 ANNUAL PCP TEAM CHRONIC DISEASE VISIT ANNUAL PCP TEAM CHRONIC DISEASE VISIT [facility] Start: 01-01-2023 BP CONTROLLED (<130/80) BP CONTROLLED (<130/80) [facility] Start: 01-01-2023 Hepatitis B surface antibody level LDL CHOLESTEROL [facility] Start: 01-01-2023 SERUM CREATININE SERUM CREATININE [facility] Start: 12-14-2022 ANNUAL PCP TEAM CHRONIC DISEASE VISIT ANNUAL PCP TEAM CHRONIC DISEASE VISIT [facility] Start: 12-08-2022 ANNUAL PCP TEAM CHRONIC DISEASE VISIT ANNUAL PCP TEAM CHRONIC DISEASE VISIT [facility] Start: 12-08-2022 BP CONTROLLED (<130/80) BP CONTROLLED (<130/80) [facility] Start: 09-06-2022 ANNUAL PCP TEAM CHRONIC DISEASE VISIT ANNUAL PCP TEAM CHRONIC DISEASE VISIT [facility] Start: 09-02-2022 Hemoglobin A1c/Hemoglobin.total in Blood HBA1C [facility] Start: 08-30-2022 SERUM CREATININE SERUM CREATININE [facility] Start: 08-09-2022 End: 10-09-2022 CBC W Auto Differential panel - Blood CBC + DIFF Lab Routine Type 2 diabetes mellitus with diabetic neuropathy, with long-term current use of insulin (HCC) Expected: 08/09/2022, Expires: 10/09/[address] [facility] Work Phone: Immunizations Immunization Date Immunization Notes Care Provider Fa cili 04-06-2022 COVID-19 booster vaccine, age 12+ yr, bivalent (PFIZER-BIONTECH) Roselia Podlogdavid CROZE CUTTER.HAT CUTTER Work Phone: [facility] 04-06-2022 influenza, high-dose , quadrivalent vaccine (FLUZONE HIGH DOSE QUADRIVALENT) Roselia Raglandlogdavid CROZE CUTTER.HAT CUTTER Work Phone: [facility] 06-14-2021 influenza, high-dose , quadrivalent vaccine (FLUZONE HIGH DOSE QUADRIVALENT) Abdulaziz Caldera MD Work Phone: [facility] Work Phone: 02-24-2021 zoster vaccine recombinant Abdulaziz Caldera MD Work Phone: [facility] 09-30-2020 COVID-19 vaccine, ag e 12+ yr (PFIZER-BIONTECH - PURPLE TOP) Abdulaziz Caldera MD Work Phone: [facility] 09-09-2020 COVID-19 vaccine, ag e 12+ yr (PFIZER-BIONTECH - PURPLE TOP) Abdulaziz Caldera MD Work Phone: [facility] 04-16-2020 influenza, high-dose , quadrivalent vaccine (FLUZONE HIGH DOSE QUADRIVALENT) Abdulaziz Caldera MD Work Phone: [facility] 03-14-2020 zoster vaccine recombinant Abdulaziz Caldera MD Work Phone: [facility] Work Phone: 04-02-2019 influenza, high dose seasonal, preservative-free Abdulaziz Caldera MD Work Phone: [facility] Work Phone: 04-15-2018 influenza, high dose seasonal, preservative-free Abdulaziz Caldera MD Work Phone: [facility] 06-13-2017 influenza, high dose seasonal, preservative-free Abdulaziz Caldera MD Work Phone: [facility] 06-20-2016 influenza, high dose seasonal, preservative-free Abdulaziz Caldera MD Work Phone: [facility] 11-24-2015 pneumococcal polysaccharide vaccine, 23 valent Abdulaziz Caldera MD Work Phone: [facility] 05-16-2015 influenza, high dose seasonal, preservative-free Abdulaziz Caldera MD Work Phone: [facility] 10-27-2014 pneumococcal conjuga te vaccine, 13 valent Abdulaziz Caldera MD Work Phone: [facility] 10-27-2014 zoster vaccine, live Socrates Caldera MD Work Phone: [facility] 06-11-2011 influenza virus vaccine, unspecified formulation Abdulaziz Caldera MD Work Phone: [facility] 12-25-2010 tetanus toxoid, redu veronika diphtheria toxoid, and acellular pertussis vaccine, adsorbed Abdulaziz Caldera MD Work Phone: [facility] 04-25-2009 pneumococcal polysaccharide vaccine, 23 valent Abdulaziz Caldera MD Work Phone: [facility] 03-21-2000 diphtheria and tetan us toxoids, adsorbed for pediatric use Abdulaziz Caldera MD Work Phone: [facility] Work Phone: 02-11-1961 poliovirus vaccine, inactivated Abdulaziz Caldera MD Work Phone: [facility] Work Phone: 03-25-1959 poliovirus vaccine, inactivated Abdulaziz Caldera MD Work Phone: [facility] Work Phone: 10-16-1956 poliovirus vaccine, inactivated Abdulaziz Caldera MD Work Phone: [facility] Work Phone: 01-12-1956 poliovirus vaccine, inactivated Abdulaziz Caldera MD Work Phone: [facility] Work Phone: 12-03-1955 poliovirus vaccine, inactivated Abdulaziz Caldera MD Work Phone: [facility] Work Phone: Payers Date Payer Category Payer Unknown HOSPITAL/MEDICAL GENERIC MEDICAL GENERIC [id number] 2012-Present [phone] [address] [place] [address] Indemnity [id number] 2012 Unknown HOSPITAL/MEDICAL GENERIC MEDICAL GENERIC [id number] 2012-Present [phone] [address] [place] [address] Indemnity [id number] 2012 Unknown [id number] 2012 Medicare MEDICARE MEDICAR E A AND B [id number] 2012-Present [phone] [place] [address] Medicare [id number] 2012 Medicare MEDICARE MEDICAR E A AND B [id number] 2012-Present [phone] [place] [address] Medicare [id number] 2012 Medicare [id number] 1945 Unknown [id number] Social History Date Type Detail Facility Start: 11-23-2020 End: 04-06-2022 Tobacco smoking status NHIS Never smoked tobacco [facility] Start: 09-06-2021 End: 12-03-2022 Alcohol intake Current non-drinker of alcohol (finding) [facility] Start: 1945 Sex Assigned At Not on file [facility] Start: 08-07-2021 End: 04-17-2022 Exposure to SARS-CoV-2 (event) Not sure [facility] Tobacco smoking status No Smokin g Status Entered [facility] Sex Assigned At Male [facility] Start: 01-02-2022 End: 01-12-2022 Exposure to SARS-CoV-2 (event) Unable to assess [facility] Work Phone: Start: 11-23-2020 End: 04-06-2022 Tobacco use and exposure Smokeless tobacco non-user [facility] Work Phone: Start: 11-19-2022 End: 12-03-2022 History of Social function [facility] Work Phone: Start: 11-19-2022 End: 12-03-2022 Tobacco use panel [facility] Work Phone: Adult Depression Screening Assessment 2 [facility] Work Phone: Medical Equipment Procedure Code Equipment Code Equipment Origin al Text Equipment Identifier Dates Start: 12-11-2019 End: 02-06-2022 Clinical Notes 10-25-2014 to 05-28-2023 Telephone Encounter - Tania Heller LPN - 01/28/2023 2:22 PM EDTTelephone Encounter - Tamika Grijalva LPN - 01/24/2023 3:55 PM EDTTelephone Encounter - Tamika Grijalva LPN - 01/04/2023 8:26 AM EDT Note Date & Type Note Facility 05-28-2023 Note Patient Outreach (EVELYN ROGERS) RICHARD ROY ([id number]) 1945 M Date Time Provider Department 05/28/23 GUDELIA HUITRON During your visit today, we recorded the following information about you: Gudelia Huitron MA 05/28/2023 12:44 PM Signed POPULATION HEALTH NAVIGATION OUTREACH Action/FYI NO ANSWER URBANARAHART MESSAGE SENT ANNUAL MEDICARE WELLNESS Advance Directive Discussion Never done HbA1C due on 02/10/2023 Influenza Vaccine(1) due on 03/15/2023 Patient Identified by Name and : NO Outreach Outcome/Action Unable to reach patient: Phone number not valid / voicemail full NetPaymentt message sent Did you use a PCP flex slot to schedule this appointment? N/A Reason for Outreach Care Gap or Scheduling/Wellness visits Payer: Payor: MEDICARE / Plan: MEDICARE A AND B / Product Type: Medicare / Care Gap Reviewed:: Annual Wellness visit HBA1C Flu Vaccine Reminder: Reminder note to check Health Maintenance for items below Health Maintenance items due: Hepatitis B Vaccine(1 of 3 - Risk 3-dose series) Never done RSV Vaccine(1 - 1-dose 60+ series) Never done DTaP,Tdap,Td Vaccine(3 - Td or Tdap) due on 12/25/2020 Dilated Retinal Exam due on 02/20/2022 Advance Directive Discussion Never done Depression Assessment Never done LDL Cholesterol due on 01/01/2023 HbA1C due on 02/10/2023 Urine Albumin:Creatinine Ratio due on 03/02/2023 Influenza Vaccine(1) due on 03/15/2023 Covid-19 Vaccine(2022- season) due on 03/15/2023 Diabetic Foot Exam due on 03/30/2023 Navigation Signature: Gudelia Huitron MA May 28, 2023 7:41 AM Allergies As of Date: 05/28/2023 Noted Allergy Reaction PANTOPRAZOLE 09/24/2019 6 - Diarrhea Date Reviewed: 01/04/2023 Reviewed by: Tamika Grijalva LPN - Fully Assessed Reason for Visit: Population Health Navigation Outreach [3910] Cmt: ACO CARE GAPS Prescriptions as of 05/28/2023 - metFORMIN ER (GLUCOPHAGE XR) 500 mg 24 hr tablet Take 2 tablets by mouth twice daily with meals. - insulin aspart U-100 (NOVOLOG FLEXPEN U-100 INSULIN) 100 unit/mL (3 mL) Inject with meals according to sliding scale: 100-200=3 units, 201-250=5 units, 251-300=8 units, 301-350=12 units, 351-400=15 units. Max dose per meal, 15 units. Max dose per day: 45 units. - warfarin (COUMADIN) 5 mg tablet 10 mg Saturday and Saturday, 7.5 mg all other days or as directed. - losartan (COZAAR) 50 mg tablet Take 1 tablet by mouth once daily. - metoprolol succinate ER (TOPROL XL) 200 mg 24 hr tablet Take 1 tablet by mouth once daily. - tamsulosin (FLOMAX) 0.4 mg Take 1 capsule by mouth daily at bedtime. - amLODIPine (NORVASC) 2.5 mg tablet Take 1 tablet by mouth once daily. - insulin glargine (LANTUS SOLOSTAR U-100 INSULIN) 100 unit/mL (3 mL) Inject 12 Units subcutaneously daily at bedtime. - dulaglutide (TRULICITY) 1.5 mg/0.5 mL pen injector Inject 1.5 mg subcutaneously one time a week. Inject once per week. Discard Pen After - atorvastatin (LIPITOR) 40 mg tablet Take 1 tablet by mouth once daily. For cholesterol. - insulin needles, DISPOSABLE, (BD INSULIN PEN NEEDLE UF) 31 gauge x 5/16 1 Each four times daily. With insulin - B cmplx 4/vit D3/C/folic/zinc (VITAL-D RX ORAL) Take by mouth one time a week. - blood sugar diagnostic ([employer] ULTRA TEST) test strip Test blood sugar(s) 3 times daily. Dx: E11.49. Insulin: Yes Facility-Administered Medications as of 05/28/2023 - perflutren lipid microspheres 1.3 mL in NaCl (PF) 0.9% 10 mL injection (DEFINITY) - sodium chloride 0.9 % (flush) 10 mL (BD POSIFLUSH) Problem List As Of Date 05/28/2023 Noted Resolved Sciatica [M54.30] 05/04/2009 06/20/2016 Diabetic polyneuropathy associated with type 2 *09/08/2010 Abscess [L02.91] 09/08/2010 06/20/2016 Non-healing surgical wound [T81.89XA] 09/19/2010 06/20/2016 Cellulitis and abscess [L03.90, L02.91] 11/22/2010 06/20/2016 Skin lesion [L98.9] 03/21/2011 06/20/2016 Hyperlipidemia with target LDL less than 100 [E*04/01/2012 Essential hypertension, benign [I10] 10/28/2012 Morbid obesity with BMI of 40.0-44.9, adult (HC*10/28/2012 08/19/2017 Encounter for monitoring Coumadin therapy [Z51.*09/23/2013 07/20/2019 Pulmonary embolus, right (HCC) [I26.99] 09/25/2013 08/19/2017 Callus of foot [L84] 09/25/2013 07/20/2019 Tinea of nail [B35.1] 09/25/2013 07/20/2019 Cholelithiasis [K80.20] 09/25/2013 S/P aortic valve replacement [Z95.2] 10/25/2014 06/20/2016 Status post aortic valve repair [Z98.890] 06/20/2016 Type 2 diabetes mellitus with stage 3 chronic k*06/20/2016 Obesity, Class II, BMI 35-39.9 [E66.9] 08/19/2017 Chronic anticoagulation [Z79.01] 05/07/2018 Iron deficiency anemia [D50.9] 03/20/2019 Lumbar radiculopathy [M54.16] 03/20/2019 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 [facility] 05-28-2023 Note HNO ID: [id number] Author: Gudelia Huitron MA Service: ? Author Type: Outbound Sales Specialist Type: Progress Notes Filed: 05/28/2023 12:44 PM Note Text: POPULATION HEALTH NAVIGATION OUTREACH Action/I NO ANSWER URBANARAHART MESSAGE SENT ANNUAL MEDICARE WELLNESS Advance Directive Discussion Never done HbA1C due on 02/10/2023 Influenza Vaccine(1) due on 03/15/2023 Patient Identified by Name and : NO Outreach Outcome/Action Unable to reach patient: Phone number not valid / voicemail full [email or web address] message sent Did you use a PCP flex slot to schedule this appointment? N/A Reason for Outreach Care Gap or Scheduling/Wellness visits Payer: Payor: MEDICARE / Plan: MEDICARE A AND B / Product Type: Medicare / Care Gap Reviewed:: Annual Wellness visit HBA1C Flu Vaccine Reminder: Reminder note to check Health Maintenance for items below Health Maintenance items due: Hepatitis B Vaccine(1 of 3 - Risk 3-dose series) Never done RSV Vaccine(1 - 1-dose 60+ series) Never done DTaP,Tdap,Td Vaccine(3 - Td or Tdap) due on 12/25/2020 Dilated Retinal Exam due on 02/20/2022 Advance Directive Discussion Never done Depression Assessment Never done LDL Cholesterol due on 01/01/2023 HbA1C due on 02/10/2023 Urine Albumin:Creatinine Ratio due on 03/02/2023 Influenza Vaccine(1) due on 03/15/2023 Covid-19 Vaccine( season) due on 03/15/2023 Diabetic Foot Exam due on 03/30/2023 Navigation Signature: Gudelia Huitron MA May 28, 2023 7:41 AM [facility] 02-12-2023 Note Patient Outreach (IN TMM[facility]) RICHARD ROY ([id number]) 1945 M Date Time Provider Department 02/12/23 ABDULAZIZ CALDERA During your visit today, we recorded the following information about you: Allergies As of Date: 02/12/2023 Noted Allergy Reaction PANTOPRAZOLE 09/24/2019 6 - Diarrhea Date Reviewed: 01/04/2023 Reviewed by: Tamika Grijalva LPN - Fully Assessed Visit Diagnosis:Diabetic retinopathy of right eye (HCC) [E11.319] Order(s):HGB A1C [KTCBD8D] Order #: [id number] FUTURE Prescriptions as of 02/15/2023 - metFORMIN ER (GLUCOPHAGE XR) 500 mg 24 hr tablet Take 2 tablets by mouth twice daily with meals. - insulin aspart U-100 (NOVOLOG FLEXPEN U-100 INSULIN) 100 unit/mL (3 mL) Inject with meals according to sliding scale: 100-200=3 units, 201-250=5 units, 251-300=8 units, 301-350=12 units, 351-400=15 units. Max dose per meal, 15 units. Max dose per day: 45 units. - warfarin (COUMADIN) 5 mg tablet 10 mg Saturday and Saturday, 7.5 mg all other days or as directed. - losartan (COZAAR) 50 mg tablet Take 1 tablet by mouth once daily. - metoprolol succinate ER (TOPROL XL) 200 mg 24 hr tablet Take 1 tablet by mouth once daily. - tamsulosin (FLOMAX) 0.4 mg Take 1 capsule by mouth daily at bedtime. - amLODIPine (NORVASC) 2.5 mg tablet Take 1 tablet by mouth once daily. - insulin glargine (LANTUS SOLOSTAR U-100 INSULIN) 100 unit/mL (3 mL) Inject 12 Units subcutaneously daily at bedtime. - dulaglutide (TRULICITY) 1.5 mg/0.5 mL pen injector Inject 1.5 mg subcutaneously one time a week. Inject once per week. Discard Pen After - atorvastatin (LIPITOR) 40 mg tablet Take 1 tablet by mouth once daily. For cholesterol. - insulin needles, DISPOSABLE, (BD INSULIN PEN NEEDLE UF) 31 gauge x 5/16 1 Each four times daily. With insulin - B cmplx 4/vit D3/C/folic/zinc (VITAL-D RX ORAL) Take by mouth one time a week. - blood sugar diagnostic ([employer] ULTRA TEST) test strip Test blood sugar(s) 3 times daily. Dx: E11.49. Insulin: Yes Facility-Administered Medications as of 02/15/2023 - perflutren lipid microspheres 1.3 mL in NaCl (PF) 0.9% 10 mL injection (DEFINITY) - sodium chloride 0.9 % (flush) 10 mL (BD POSIFLUSH) Problem List As Of Date 02/12/2023 Noted Resolved Sciatica [M54.30] 05/04/2009 06/20/2016 Diabetic polyneuropathy associated with type 2 *09/08/2010 Abscess [L02.91] 09/08/2010 06/20/2016 Non-healing surgical wound [T81.89XA] 09/19/2010 06/20/2016 Cellulitis and abscess [L03.90, L02.91] 11/22/2010 06/20/2016 Skin lesion [L98.9] 03/21/2011 06/20/2016 Hyperlipidemia with target LDL less than 100 [E*04/01/2012 Essential hypertension, benign [I10] 10/28/2012 Morbid obesity with BMI of 40.0-44.9, adult (HC*10/28/2012 08/19/2017 Encounter for monitoring Coumadin therapy [Z51.*09/23/2013 07/20/2019 Pulmonary embolus, right (HCC) [I26.99] 09/25/2013 08/19/2017 Callus of foot [L84] 09/25/2013 07/20/2019 Tinea of nail [B35.1] 09/25/2013 07/20/2019 Cholelithiasis [K80.20] 09/25/2013 S/P aortic valve replacement [Z95.2] 10/25/2014 06/20/2016 Status post aortic valve repair [Z98.890] 06/20/2016 Type 2 diabetes mellitus with stage 3 chronic k*06/20/2016 Obesity, Class II, BMI 35-39.9 [E66.9] 08/19/2017 Chronic anticoagulation [Z79.01] 05/07/2018 Iron deficiency anemia [D50.9] 03/20/2019 Lumbar radiculopathy [M54.16] 03/20/2019 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) [Z89.*07/20/2019 Vitamin D deficiency [E55.9] 01/03/2022 Abnormality of gait due to impairment of balanc*01/12/2022 Diabetic retinopathy of right eye (HCC) [E11.31*04/16/2022 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]07/02/2022 BPH (benign prostatic hyperplasia) [N40.0] 08/09/2022 Spinal stenosis, lumbar region, without neuroge*11/29/2022 Primary osteoarthritis of both knees [M17.0] 11/29/2022 At high risk for falls [Z91.81] 11/29/2022 Chronic bilateral low back pain without sciatic*11/29/2022 Aneurysm of ascending aorta without rupture (HC*12/03/2022 Paroxysmal atrial fibrillation (HCC) [I48.0] 12/03/2022 Encounter Status:Closed by SOLA RANDLE on 02/15/23 [facility] 01-28-2023 Miscellaneous Notes Miya with [facility] calls to report pt was admitted to their facility over the weekend. Miya is requesting immunization record be faxed to: [phone]. Immunization record faxed as requested. Tania Heller LPN documented in this encounter [facility] 01-24-2023 Miscellaneous Notes Phoned patient's and reviewed provider's message with her. She voiced understanding. I am sorry to hear he is not doing well. Unfortunately, while he is in the hospital he is under the care of the hospitalist. I would let them know about depression symptoms so they can talk to you about medication options for this. Patient's calling to say patient was at [facility] for rehabilitation after his hospitalization @ [facility] for confusion on 01/04. He was sent by squad to [facility] from [facility] on 01/21 due to episode of decreased responsiveness and black tarry stool. He had an EGD yesterday and says they found multiple ulcers at head of small intestine that were cauterized by Dr. Hackett. His says patient appears to be very depressed. He is not eating and is not willing to get out of bed at the hospital. She is asking if there is anything that PCP can do? She says he will need to go to another nursing facility post hospital stay but it won't be [facility]. Vannessa Jorge, JACEY documented in this encounter [facility] 01-04-2023 Note HNO ID: [id number] Author: Abdulaziz Caldera MD Service: ? Author Type: Physician Type: Progress Notes Filed: 01/07/2023 11:39 AM Note Text: Chief Complaint Patient presents with: Follow Up HPI Richard Roy is a 77 year old male who presents here today for Evaluation of Confusion. Accompanied today by . States that about 2 weeks ago patient developed worsening confusion. gives example that he fell while on treadmill because he thought PT told him to walk 6 miles instead of 6 minutes. Scraped up his left arm, but did not seem like he hit his head. Seems to be more weak, needing to be dropped off at the door to PT instead of walking in on his own. Confusing cell phone for remote control. Admits to decreased appetite, unsteady gait. Denies fever/chills, dysuria, hematuria, frequency, slurred speech, facial droop, numbness/tingling/weakness. Past medical history, appointments, medications, allergies reviewed. Previous Medical History PAST MEDICAL HISTORY Diagnosis Date BPH (benign prostatic hyperplasia) Cholelithiasis 09/25/2013 Chronic neutrophilia Benign-Dr. 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 ([facility]) 05/25/2018 History of transfusion Hyperlipidemia LDL goal < 100 04/01/2012 NSTEMI (non-ST elevated myocardial infarction) ([facility]) Pulmonary embolus, right ([facility]) 09/25/2013 Status post aortic valve repair 2005 Thoracic aneurysm without mention of rupture Type 2 diabetes mellitus with stage 3 chronic kidney disease, with long-term current use of insulin ([facility]) 06/20/2016 Vitamin D deficiency 01/03/2022 Previous Surgical History PAST SURGICAL HISTORY Procedure Laterality Date ABDOMINAL SURGERY HX AMPUTATION METATARSAL+TOE,SINGLE Right 05/25/2018 with delayed closure on 05/28/18. Dr. Obregon at [facility] COLONOSCOPY 10/10/2021 repeat in 3 years COLONOSCOPY FLX DX W/COLLJ SPEC WHEN PFRMD 03/12/2011 DEBRIDEMENT OF SKIN, FULL THIC 09/12/2010 LEFT GROIN DEBRIDEMENT OPEN WOUND 20 SQ CM/< 11/22/2010 Debridement posterior neck/IANDD LLQ abd DEBRIDEMENT SUBCUTANEOUS TISSUE 20 SQ CM/< 09/11/2010 LEFT GROIN ESOPHAGOGASTRODUODENOSCOPY TRANSORAL DIAGNOSTIC 01/11/2019 EGD HEART SURGERY HX INCISION AND DRAINAGE ABSCESS SIMPLE/SINGLE 09/08/2010 IANDD abscess left groin INCISION AND DRAINAGE ABSCESS SIMPLE/SINGLE 10/23/2010 IANDD medial to left groin wound INCISION AND DRAINAGE ABSCESS SIMPLE/SINGLE 01/22/2011 IANDD LLQ superficial abscess REM LESION TRUNK,ARM, LEG <0.5 CM 03/21/2011 Exc. fibroepithelial polyp LLQ abd REVISION OF AORTIC VALVE 2005 Repair of Aortic Value/Thoracic anerusym repair SKIN BIOPSY HX Family History FAMILY HISTORY Problem Relation Age of Onset No Known Problems Mother Heart Father Bypass and valve replaced Breast Cancer Sister No Known Problems Brother No Known Problems Son No Known Problems Son Patient Allergies ALLERGIES Allergen Reactions Pantoprazole Diarrhea Current Medications Current Outpatient Medications on File Prior to Visit Medication Sig metFORMIN ER (GLUCOPHAGE XR) 500 mg 24 hr tablet Take 2 tablets by mouth twice daily with meals. fluticasone (FLONASE) 50 mcg/actuation nasal spray Use 2 Sprays in each nostril once daily. Rinse mouth after use. insulin aspart U-100 (NOVOLOG FLEXPEN U-100 INSULIN) 100 unit/mL (3 mL) Inject with meals according to sliding scale: 100-200=3 units, 201-250=5 units, 251-300=8 units, 301-350=12 units, 351-400=15 units. Max dose per meal, 15 units. Max dose per day: 45 units. warfarin (COUMADIN) 5 mg tablet 10 mg Saturday and Saturday, 7.5 mg all other days or as directed. losartan (COZAAR) 50 mg tablet Take 1 tablet by mouth once daily. metoprolol succinate ER (TOPROL XL) 200 mg 24 hr tablet Take 1 tablet by mouth once daily. tamsulosin (FLOMAX) 0.4 mg Take 1 capsule by mouth daily at bedtime. amLODIPine (NORVASC) 2.5 mg tablet Take 1 tablet by mouth once daily. insulin glargine (LANTUS SOLOSTAR U-100 INSULIN) 100 unit/mL (3 mL) Inject 12 Units subcutaneously daily at bedtime. dulaglutide (TRULICITY) 1.5 mg/0.5 mL pen injector Inject 1.5 mg subcutaneously one time a week. Inject once per week. Discard Pen After atorvastatin (LIPITOR) 40 mg tablet Take 1 tablet by mouth once daily. For cholesterol. insulin needles, DISPOSABLE, (BD INSULIN PEN NEEDLE UF) 31 gauge x 5/16 1 Each four times daily. With insulin B cmplx 4/vit D3/C/folic/zinc (VITAL-D RX ORAL) Take by mouth one time a week. blood sugar diagnostic (ONETOUCH ULTRA TEST) test strip Test blood sugar(s) 3 times daily. Dx: E11.49. Insulin: Yes Current Facility-Administ (more content not included)... [facility] 01-04-2023 Miscellaneous Notes Pt was seen in office today. Amada Cohn Ma Attempted to call patient's spouse but no answer. Unable to leave message. Attempt call back. Patient has OV scheduled with me today for acute confusion/delerium. Recommended he go to the ED yesterday for emergent evaluation. Please call to see how patient is doing and if confusion persists/worsens would again recommend ER evaluation. documented in this encounter [facility] 01-04-2023 Miscellaneous Notes No return call received, however, noted patient now scheduled for OV with PCP for 01/04/23. Tried to reach pt makayla Dixon just rings. Amada Cohn Ma Tried to reach ciarra but line just rings. No answer or machine to leave message. Amada Cohn Ma If he has acute worsening of his memory or confusion would recommend ER for evaluation of possible infectious cause, stroke, or hemorrhage. Patient's calling to let provider know patient has been having Physical Therapy and is not improving. She states he had an appointment today and discussed with therapist that patient had recent fall and has some mental confusion. Patient's denies patient has had slurred speech, weakness on one side of body, urinary symptoms, recent illness. Physical Therapy note copied below: SUBJECTIVE: Patient Reason for Visit: Pt. fell on treadmill when was not home. He thought that PT instructed 6 miles of amb. PT had instructed 6 minutes of walking in the house or outdoors with supervison/assistance for safety. present reports pt. was very confused over the weekend. He forgets the channel numbers for the television. now must manage his medications. Pt. and report they have not told pt. physician about the confusion. Pt. and agree for PT to message referring physician regarding this concern. Justina Escoto PT This nurse scheduled appointment with PCP on 01/04. Vannessa Jorge RN documented in this encounter [facility] 01-03-2023 Note HNO ID: [id number] Author: Justina Escoto PT Service: ? Author Type: Physical Therapist Type: Progress Notes Filed: 01/03/2023 1:39 PM Note Text: Episode Visit Count: 10 Therapist That Will Accept/Oversee The Plan Of Care: Justina Escoto Start of Care Date: 11/29/22 Onset Date: 09/29/22 Plan of Care Certification Date: 11/29/22 Next Certification Due Date: 01/03/23 REHABILITATION AND SPORTS THERAPY PHYSICAL THERAPY DISCONTINUANCE OF CARE PLAN OF CARE UPDATE: Assessment: Richard Roy is discontinued from Physical Therapy services due to Patient/Clinician mutual decision to discontinue current plan of care.. Patient was seen for 10 visits from Start of Care Date: 11/29/22 to 01/03/2023 and treatment included: Therapeutic exercise, Neuromuscular re-education, Therapeutic activities, Self-fdc management, and Gait training. Goals for Episode of Care: created on 11/29/22 through 01/10/23 Goals updated on 01/03/2023. Patient will report no falls. -- NOT MET, fall on treadmill Improve score on Timed Up and Go Test to <12 seconds to reflect decreased fall risk. -- NOT MET Improve score on 30 Second Chair Stand to 11 repetitions to reflect decreased fall risk. -- PARTIALLY MET, improved 8 to 9 reps Preston in home exercise program including cardiovascular exercise. -- NOT MET Patient will demonstrate independent and proper use of assisstive device to allow for improved walking quality and safety therefore reducing the risk of falls. -- PARTIALLY MET Patient will decrease pain rating by 2 points to meet Minimal Clinical Important Difference for number pain scale rating. -- MET, denies pain Patient will be able to corect postrual deviations independently in order to to decrease current pain . -- NOT MET Patient Goals: improve mobility, complete more tasks in the home -- NOT MET SUBJECTIVE: Patient Reason for Visit: Pt. fell on treadmill when was not home. He thought that PT instructed 6 miles of amb. PT had instructed 6 minutes of walking in the house or outdoors with supervison/assistance for safety. present reports pt. was very confused over the weekend. He forgets the channel numbers for the television. now must manage his medications. Pt. and report they have not told pt. physician about the confusion. Pt. and agree for PT to message referring physician regarding this concern.. Patient Goals: improve mobility, complete more tasks in the home Functional Limitations: standing ( I cant really say any certain things. ) Pain: Pain Pain Level: 0 Pain Location: Low Back/Lumbar Spine- Midline PROMIS Scales Higher is Better 11/29/2022 Phys Func - Score 37 (moderate dysfunction) Phys Func - Percentile 10 % Self-Eff Symptom - Score 46 (Average) Self-Eff Symptom - Percentile 34 % T-scores: mean of general population = 50. 5 points is clinically meaningfully difference Percentiles provide an indication of how the patient's score ranks in relation to the general population. Higher percentile rankings indicate better function/quality of life. 50th percentile is the average of the general population and indicates half of respondents had a worse score. OBJECTIVE MEASURES WITH LEVEL OF FUNCTION: Functional Performance Test Results Assistive Device: Cane 30 Second Chair Stand Test: 9 reps Timed Up and Go (sec): 20.6 sec Timed Up and Go - Condition 2 (sec) : 16.9 Dynamic Gait Index Gait level surface : 1 - Moderate impairment- walks 20', slow speed, abnormal gait pattern, evidence for imbalance Change in gait speed: 2 - Mild impairment- is able to change speed but demonstrates mild gait deviations or no gait deviations but unable to achieve a significant change in velocity, or uses an assistive device Gait and horizontal head turns: 2 - Mild impairment- performs R/L head turns smoothly with slight change in gait velocity, minor disruption to smooth gait path or uses assistive device Gait and vertical head turns: 1 - Moderate impairment- performs R/L head turns with moderate change in gait velocity, slows down, staggers but recovers, can continue to walk Gait and pivot: 1 - Moderate impairment- turns slowly, requires verbal cueing, requires several small steps following turn and stop Step over obstacle: 2 - Mild impairment- is able to step over box, but must slow down and adjust steps to clear box Step around obstacle: 1 - Moderate impairment- able to clear cones, but must significantly slow speed or requires verbal cueing Steps: 2 - Mild impairment- alternating feet, must use rail Dynamic Gait Index Total: 12 TREATMENT: Therapeutic Exercise: 1: seated SciFit 5 min level 2, 1:1 throughout, subjective collected (emphasis on bigger movements with using the stepper and how that relates to walking.) 2: 30 sec sit <> stand test 9 reps with use of BUEs Skilled Intervention: Patient was educated in proper exercise (more content not included)... [facility] 01-03-2023 History of Presen t illness Narrative Episode Visit Count: 10 Therapist That Will Accept/Oversee The Plan Of Care: Justina Escoto Start of Care Date: 11/29/22 Onset Date: 09/29/22 Plan of Care Certification Date: 11/29/22 Next Certification Due Date: 01/03/23 REHABILITATION AND SPORTS THERAPY PHYSICAL THERAPY DISCONTINUANCE OF CARE PLAN OF CARE UPDATE: Assessment: Richard Roy is discontinued from Physical Therapy services due to Patient/Clinician mutual decision to discontinue current plan of care.. Patient was seen for 10 visits from Start of Care Date: 11/29/22 to 01/03/2023 and treatment included: Therapeutic exercise, Neuromuscular re-education, Therapeutic activities, Self-fdc management, and Gait training. Goals for Episode of Care: created on 11/29/22 through 01/10/23 Goals updated on 01/03/2023. Patient will report no falls. -- NOT MET, fall on treadmill Improve score on Timed Up and Go Test to <12 seconds to reflect decreased fall risk. -- NOT MET Improve score on 30 Second Chair Stand to 11 repetitions to reflect decreased fall risk. -- PARTIALLY MET, improved 8 to 9 reps Preston in home exercise program including cardiovascular exercise. -- NOT MET Patient will demonstrate independent and proper use of assisstive device to allow for improved walking quality and safety therefore reducing the risk of falls. -- PARTIALLY MET Patient will decrease pain rating by 2 points to meet Minimal Clinical Important Difference for number pain scale rating. -- MET, denies pain Patient will be able to corect postrual deviations independently in order to to decrease current pain . -- NOT MET Patient Goals: improve mobility, complete more tasks in the home -- NOT MET SUBJECTIVE: Patient Reason for Visit: Pt. fell on treadmill when was not home. He thought that PT instructed 6 miles of amb. PT had instructed 6 minutes of walking in the house or outdoors with supervison/assistance for safety. present reports pt. was very confused over the weekend. He forgets the channel numbers for the television. now must manage his medications. Pt. and report they have not told pt. physician about the confusion. Pt. and agree for PT to message referring physician regarding this concern.. Patient Goals: improve mobility, complete more tasks in the home Functional Limitations: standing ( I cant really say any certain things. ) Pain: Pain Pain Level: 0 Pain Location: Low Back/Lumbar Spine- Midline PROMIS Scales Higher is Better 11/29/2022 Phys Func - Score 37 (moderate dysfunction) Phys Func - Percentile 10 % Self-Eff Symptom - Score 46 (Average) Self-Eff Symptom - Percentile 34 % T-scores: mean of general population = 50. 5 points is clinically meaningfully difference Percentiles provide an indication of how the patient's score ranks in relation to the general population. Higher percentile rankings indicate better function/quality of life. 50th percentile is the average of the general population and indicates half of respondents had a worse score. OBJECTIVE MEASURES WITH LEVEL OF FUNCTION: Functional Performance Test Results Assistive Device: Cane 30 Second Chair Stand Test: 9 reps Timed Up and Go (sec): 20.6 sec Timed Up and Go - Condition 2 (sec) : 16.9 Dynamic Gait Index Gait level surface : 1 - Moderate impairment- walks 20', slow speed, abnormal gait pattern, evidence for imbalance Change in gait speed: 2 - Mild impairment- is able to change speed but demonstrates mild gait deviations or no gait deviations but unable to achieve a significant change in velocity, or uses an assistive device Gait and horizontal head turns: 2 - Mild impairment- performs R/L head turns smoothly with slight change in gait velocity, minor disruption to smooth gait path or uses assistive device Gait and vertical head turns: 1 - Moderate impairment- performs R/L head turns with moderate change in gait velocity, slows down, staggers but recovers, can continue to walk Gait and pivot: 1 - Moderate impairment- turns slowly, requires verbal cueing, requires several small steps following turn and stop Step over obstacle: 2 - Mild impairment- is able to step over box, but must slow down and adjust steps to clear box Step around obstacle: 1 - Moderate impairment- able to clear cones, but must significantly slow speed or requires verbal cueing Steps: 2 - Mild impairment- alternating feet, must use rail Dynamic Gait Index Total: 12 TREATMENT: Therapeutic Exercise: 1: seated SciFit 5 min level 2, 1:1 throughout, subjective collected (emphasis on bigger movements with using the stepper and how that relates to walking.) 2: 30 sec sit <> stand test 9 reps with use of BUEs Skilled Intervention: Patient was educated in proper exercise technique and purpose for exercises. Skilled judgment was provided in selection of appropriate interventions. Correct performance of therapeutic exercises was facilitated with verbal, visual, and tactile cuing. Educated patient on rationale for performing exercises in regards to including balance, increase ease of ADL, and ROM and function . Patient education as noted. Neuromuscular Re-Education: 1: TUG test with SC 2x (requires 1 step verbal and tactile cues after being unable to follow TUG test instructions with multiple steps and repeated instruction 2x) 2: amb forward with eyes closed and SC x10' 3: amb reverse with eyesopen and SC x10' 6: gait level surface 40' with SC 7: gait level surface 40' with SC and horrizontal head movements 8: gait level surface 40' with SC and vertical head movements 9: gait level surface 40' with SC, turn and pivot 180 degrees 10: gait level surface 40' with SC, step over x 6 obstacle, 2x 11: gait level surface 40' with SC, step around 2x6 obstacle, 2x Skilled Intervention: Skilled judgment used to assess appropriate program for balance and coordination activity. Education in proprioceptive/kinesthetic awareness during DGI testing. Ensured patient safety with use of gait belt and CGAx1 Reviewed and educated patient on additions/changes for home program as noted above with an (*). Patient education as noted. Self-Senior Living Management: 1: *strongly enouraged f/u with physician regarding pt. decline in mental status as reported by and by pt. 2: *discussed scores of balance/strength and gait tests. Minimal improvement. 3: *discussed that pt. requires 1 step cues during today's activities. Unable to follow multiple step cues. Skilled Intervention: Skilled judgment in the selection of proper modification for activity of daily living/home management based on clinical presentation, deficits, and needs. Physical assistance was provided during education for modifications and patient safety. Educated the patient regarding recommendations and provided written instruction to facilitate compliance. Reviewed patient specific diagnosis in relation to activities of daily living/home management. Activity progression based on professional judgement. Maximum verbal cues for maintaining neutral spine alignment. Reviewed and educated patient on additions/changes for home program as noted above with an (*). Billing Therapeutic Exercise Treatment Minutes: 10 Neuromuscular Re-Education Treatment Minutes: 25 Self-Care/Home Management Treatment Minutes: 5 Justina Escoto PT documented in this encounter [facility] 12-31-2022 Note HNO ID: [id number] Author: Justina Escoto PT Service: ? Author Type: Physical Therapist Type: Progress Notes Filed: 12/31/2022 12:53 PM Note Text: Episode Visit Count: 9 Therapist That Will Accept/Oversee The Plan Of Care: Justina Escoto Start of Care Date: 11/29/22 Onset Date: 09/29/22 Plan of Care Certification Date: 11/29/22 Next Certification Due Date: 01/03/23 Patient Identified by Name and Date of : Yes REHABILITATION AND SPORTS THERAPY PHYSICAL THERAPY TREATMENT NOTE ASSESSMENT: Richard Roy tolerated the session with fatigue. He demonstrated difficulty with side stepping over hurdles. The patient will continue to benefit from ongoing skilled physical therapy to progress toward set goals. PLAN FOR NEXT VISIT: Work on endurance with gait, continue with balance exercises. SUBJECTIVE: Patient Reason for Visit: Pt is eager to get exercises going today.He states that he is so-so today and denies any falls. Pain: OBJECTIVE MEASURES WITH LEVEL OF FUNCTION: Pt easily fatigued with stepping on foam. TREATMENT: Therapeutic Exercise: 1: seated SciFit 5 min level 2, 1:1 throughout, subjective collected (emphasis on bigger movements with using the stepper and how that relates to walking.) 2: sit <> stand 3x5 without UE support Skilled Intervention: Patient was educated in proper exercise technique and purpose for exercises. Skilled judgment was provided in selection of appropriate interventions. Correct performance of therapeutic exercises was facilitated with verbal and visual cuing. Neuromuscular Re-Education: 1: Forward stepping over 6 hurdles x2 rounds 2: Lateral stepping over 6 hurdles 2x each direction (emphasis on planning so that there is enough room for next foot to come over gustavo so that feet do not get tangled in each other or pt not placing one foot on top of the other.) 3: Step ups on foam 2x10 B (pt easily fatigued) Skilled Intervention: Skilled judgment used to assess appropriate program for balance and coordination activity. Ensured patient safety with use of gait belt. Gait Trainin: Gait training around gym with SC with CGA . Pt alternated cane in UE part way through walking. Pt only able to walk about 2.5 minutes before needed to sit, stating his shoulders were tired . As pt became more fatigued, shuffling occured. Verbal cueing to take larger steps. Skilled Intervention: Patient was provided contact guard assistance during pre-gait/gait training to prevent falls and insure safety. Facilitated proper gait cycle with the use of verbal and visual cues for correction of gait deviations identified in the objective section above. Gait belt utilized during session for safety. Billing Therapeutic Exercise Treatment Minutes: 10 Neuromuscular Re-Education Treatment Minutes: 28 Gait Training Treatment Minutes: 4 Total Treatment Time Minutes (timed/untimed): 42 Ira Ramos, ARTIST CONSULTANT Justina Escoto, PT [facility] 12-31-2022 History of Presen t illness Narrative Episode Visit Count: 9 Therapist That Will Accept/Oversee The Plan Of Care: Justina Escoto Start of Care Date: 11/29/22 Onset Date: 09/29/22 Plan of Care Certification Date: 11/29/22 Next Certification Due Date: 01/03/23 Patient Identified by Name and Date of : Yes REHABILITATION AND SPORTS THERAPY PHYSICAL THERAPY TREATMENT NOTE ASSESSMENT: Richard Roy tolerated the session with fatigue. He demonstrated difficulty with side stepping over hurdles. The patient will continue to benefit from ongoing skilled physical therapy to progress toward set goals. PLAN FOR NEXT VISIT: Work on endurance with gait, continue with balance exercises. SUBJECTIVE: Patient Reason for Visit: Pt is eager to get exercises going today.He states that he is so-so today and denies any falls. Pain: OBJECTIVE MEASURES WITH LEVEL OF FUNCTION: Pt easily fatigued with stepping on foam. TREATMENT: Therapeutic Exercise: 1: seated SciFit 5 min level 2, 1:1 throughout, subjective collected (emphasis on bigger movements with using the stepper and how that relates to walking.) 2: sit <> stand 3x5 without UE support Skilled Intervention: Patient was educated in proper exercise technique and purpose for exercises. Skilled judgment was provided in selection of appropriate interventions. Correct performance of therapeutic exercises was facilitated with verbal and visual cuing. Neuromuscular Re-Education: 1: Forward stepping over 6 hurdles x2 rounds 2: Lateral stepping over 6 hurdles 2x each direction (emphasis on planning so that there is enough room for next foot to come over gustavo so that feet do not get tangled in each other or pt not placing one foot on top of the other.) 3: Step ups on foam 2x10 B (pt easily fatigued) Skilled Intervention: Skilled judgment used to assess appropriate program for balance and coordination activity. Ensured patient safety with use of gait belt. Gait Trainin: Gait training around gym with SC with CGA . Pt alternated cane in UE part way through walking. Pt only able to walk about 2.5 minutes before needed to sit, stating his shoulders were tired . As pt became more fatigued, shuffling occured. Verbal cueing to take larger steps. Skilled Intervention: Patient was provided contact guard assistance during pre-gait/gait training to prevent falls and insure safety. Facilitated proper gait cycle with the use of verbal and visual cues for correction of gait deviations identified in the objective section above. Gait belt utilized during session for safety. Billing Therapeutic Exercise Treatment Minutes: 10 Neuromuscular Re-Education Treatment Minutes: 28 Gait Training Treatment Minutes: 4 Total Treatment Time Minutes (timed/untimed): 42 ALISIA Burch PT documented in this encounter [place] [facility] 12-27-2022 Note HNO ID: [id number] Author: Justina Escoto PT Service: ? Author Type: Physical Therapist Type: Progress Notes Filed: 12/27/2022 1:29 PM Note Text: Episode Visit Count: 8 Therapist That Will Accept/Oversee The Plan Of Care: Justina Escoto Start of Care Date: 11/29/22 Onset Date: 09/29/22 Plan of Care Certification Date: 11/29/22 Next Certification Due Date: 01/03/23 Patient Identified by Name and Date of : Yes REHABILITATION AND SPORTS THERAPY PHYSICAL THERAPY TREATMENT NOTE ASSESSMENT: Richard Roy tolerated the session with fatigue and expected muscle soreness. He demonstrated difficulty with technique and staying on task with exercises. The patient will continue to benefit from ongoing skilled physical therapy to progress toward set goals. PLAN FOR NEXT VISIT: Continue with balance. SUBJECTIVE: Patient Reason for Visit: Per pt's , pt tried to use the treadmill yesterday and fell off of it hitting his L arm. Pt thought he was supposed to walk 6 miles instead of 6 minutes and wanted to get his walking in. Pt and deny pt hitting ihs head or any other body parts. Pain: Pain Pain Level: 0 Pain Location: Low Back/Lumbar Spine- Midline OBJECTIVE MEASURES WITH LEVEL OF FUNCTION: TREATMENT: Therapeutic Exercise: 1: seated SciFit 5 min level 2, 1:1 throughout, subjective collected 2: Step ups on 6 inch step 2x12 B (cues for proper leg ds=oing the step up.) 3: sit <> stand 3x5 without UE support 4: Seated LAQ 2x12 (verbal and visual cues for technique) 5: Seated alt marchign 2x12 B Skilled Intervention: Patient was educated in proper exercise technique and purpose for exercises. Skilled judgment was provided in selection of appropriate interventions. Correct performance of therapeutic exercises was facilitated with verbal and visual cuing. Neuromuscular Re-Education: 1: Taps on BOSU with 1 UE assist x20 B Skilled Intervention: Skilled judgment used to assess appropriate program for balance and coordination activity. Ensured patient safety with use of gait belt. Billing Therapeutic Exercise Treatment Minutes: 32 Neuromuscular Re-Education Treatment Minutes: 8 Total Treatment Time Minutes (timed/untimed): 40 Ira Ramos, ARTIST CONSULTANT Justina Escoto, PT [facility] 12-27-2022 History of Presen t illness Narrative Episode Visit Count: 8 Therapist That Will Accept/Oversee The Plan Of Care: Justina Escoto Start of Care Date: 11/29/22 Onset Date: 09/29/22 Plan of Care Certification Date: 11/29/22 Next Certification Due Date: 01/03/23 Patient Identified by Name and Date of : Yes REHABILITATION AND SPORTS THERAPY PHYSICAL THERAPY TREATMENT NOTE ASSESSMENT: Richard Roy tolerated the session with fatigue and expected muscle soreness. He demonstrated difficulty with technique and staying on task with exercises. The patient will continue to benefit from ongoing skilled physical therapy to progress toward set goals. PLAN FOR NEXT VISIT: Continue with balance. SUBJECTIVE: Patient Reason for Visit: Per pt's , pt tried to use the treadmill yesterday and fell off of it hitting his L arm. Pt thought he was supposed to walk 6 miles instead of 6 minutes and wanted to get his walking in. Pt and deny pt hitting ihs head or any other body parts. Pain: Pain Pain Level: 0 Pain Location: Low Back/Lumbar Spine- Midline OBJECTIVE MEASURES WITH LEVEL OF FUNCTION: TREATMENT: Therapeutic Exercise: 1: seated SciFit 5 min level 2, 1:1 throughout, subjective collected 2: Step ups on 6 inch step 2x12 B (cues for proper leg ds=oing the step up.) 3: sit <> stand 3x5 without UE support 4: Seated LAQ 2x12 (verbal and visual cues for technique) 5: Seated alt marchign 2x12 B Skilled Intervention: Patient was educated in proper exercise technique and purpose for exercises. Skilled judgment was provided in selection of appropriate interventions. Correct performance of therapeutic exercises was facilitated with verbal and visual cuing. Neuromuscular Re-Education: 1: Taps on BOSU with 1 UE assist x20 B Skilled Intervention: Skilled judgment used to assess appropriate program for balance and coordination activity. Ensured patient safety with use of gait belt. Billing Therapeutic Exercise Treatment Minutes: 32 Neuromuscular Re-Education Treatment Minutes: 8 Total Treatment Time Minutes (timed/untimed): 40 ALISIA Burch PT documented in this encounter [facility] 12-24-2022 Note HNO ID: [id number] Author: Justina Escoto PT Service: ? Author Type: Physical Therapist Type: Progress Notes Filed: 12/24/2022 2:18 PM Note Text: Episode Visit Count: 7 Therapist That Will Accept/Oversee The Plan Of Care: Justina Escoto Start of Care Date: 11/29/22 Onset Date: 09/29/22 Plan of Care Certification Date: 11/29/22 Next Certification Due Date: 01/03/23 REHABILITATION AND SPORTS THERAPY PHYSICAL THERAPY TREATMENT NOTE ASSESSMENT: Richard Roy tolerated the session with fatigue. He demonstrated difficulty with tolerating 6 minutes of walking during 6 MWT but did not stop for seated rest until 7 sec left of the test. Pt. Did periodically suddenly sit in near by chairs during the remaining balance exercises this visit due to fatigue although encouraged by the PT to continue exercises to improve his endurance. The patient will continue to benefit from ongoing skilled physical therapy to progress toward set goals. PLAN FOR NEXT VISIT: Continue balance and gait training, increased duration to 6-10 minutes of gait or balance activity before standing or seated rest to improve pt. endurance SUBJECTIVE: Patient Reason for Visit: Pt. denies falls since last visit. Presents with .Pt. claims that he walks 20 min a day for exercise and that he is more active since onset of PT services, present disagrees. present mentions that pt. demonstrates confusion and she has been taking notes reguarding his behavior and memory. Pain: Pain Pain Level: 0 Pain Location: Low Back/Lumbar Spine- Midline Additional Pain Information : Location 2 Pain Level 2: 1 OBJECTIVE MEASURES WITH LEVEL OF FUNCTION: Functional Performance Test Results 6 Minute Walk Test (ft): 480 ft 6 Minute Walk Test Gait Speed (calculated): 0.41 m/s TREATMENT: Therapeutic Exercise: 1: seated SciFit 5 min level 2, 1:1 throughout, subjective collected 2: sit <> stand 2x5 without UE support 3: seated LAQ 2x12 each side Skilled Intervention: Patient was educated in proper exercise technique and purpose for exercises. Skilled judgment was provided in selection of appropriate interventions. Additional time necessary for seated rest due to fatigue. Patient education as noted. Neuromuscular Re-Education: 1: side stepping using SC 20' 4x each direction 2: reverse ambulation 20' 4x using SC Skilled Intervention: Skilled judgment used to assess appropriate program for balance and coordination activity. Education in proprioceptive/kinesthetic awareness during standing and dynamic activities. Ensured patient safety with use of gait belt and SC. Patient education as noted. Gait Training: Distance (feet): 480 Gait Cues: cues to avoid shuffling, especially LLE Assistive Device: SC Assist Level: CGA 1: 6 MWT with SC x 480' (pt. very fatigued) Skilled Intervention: Facilitated proper gait cycle with the use of verbal and visual cues for correction of gait deviations identified in the objective section above. Gait belt utilized during session for safety. Correct performance of home program was facilitated with verbal and visual cueing. Self-Senior Living Management: 1: *strongly encouraged pt. to be seen by PCP, tells PT that pt. seems mroe confused and she has been taking notes about his behavior and mental status 2: *encouraged pt. to walk 5-6 minutes, everyother day at least 3 days a week for exercise to improve endurance. Skilled Intervention: Skilled judgment in the selection of proper modification for activity of daily living/home management based on clinical presentation, deficits, and needs. Reviewed patient specific diagnosis in relation to activities of daily living/home management. Activity progression based on professional judgement. Correct performance of home program was facilitated with verbal and visual cueing. Billing Therapeutic Exercise Treatment Minutes: 15 Neuromuscular Re-Education Treatment Minutes: 10 Self-Care/Home Management Treatment Minutes: 5 Gait Training Treatment Minutes: 10 Total Treatment Time Minutes (timed/untimed): 40 Justina Escoto, PT [facility] 12-24-2022 History of Presen t illness Narrative Episode Visit Count: 7 Therapist That Will Accept/Oversee The Plan Of Care: Justina Escoto Start of Care Date: 11/29/22 Onset Date: 09/29/22 Plan of Care Certification Date: 11/29/22 Next Certification Due Date: 01/03/23 REHABILITATION AND SPORTS THERAPY PHYSICAL THERAPY TREATMENT NOTE ASSESSMENT: Richard Roy tolerated the session with fatigue. He demonstrated difficulty with tolerating 6 minutes of walking during 6 MWT but did not stop for seated rest until 7 sec left of the test. Pt. Did periodically suddenly sit in near by chairs during the remaining balance exercises this visit due to fatigue although encouraged by the PT to continue exercises to improve his endurance. The patient will continue to benefit from ongoing skilled physical therapy to progress toward set goals. PLAN FOR NEXT VISIT: Continue balance and gait training, increased duration to 6-10 minutes of gait or balance activity before standing or seated rest to improve pt. endurance SUBJECTIVE: Patient Reason for Visit: Pt. denies falls since last visit. Presents with .Pt. claims that he walks 20 min a day for exercise and that he is more active since onset of PT services, present disagrees. present mentions that pt. demonstrates confusion and she has been taking notes reguarding his behavior and memory. Pain: Pain Pain Level: 0 Pain Location: Low Back/Lumbar Spine- Midline Additional Pain Information : Location 2 Pain Level 2: 1 OBJECTIVE MEASURES WITH LEVEL OF FUNCTION: Functional Performance Test Results 6 Minute Walk Test (ft): 480 ft 6 Minute Walk Test Gait Speed (calculated): 0.41 m/s TREATMENT: Therapeutic Exercise: 1: seated SciFit 5 min level 2, 1:1 throughout, subjective collected 2: sit <> stand 2x5 without UE support 3: seated LAQ 2x12 each side Skilled Intervention: Patient was educated in proper exercise technique and purpose for exercises. Skilled judgment was provided in selection of appropriate interventions. Additional time necessary for seated rest due to fatigue. Patient education as noted. Neuromuscular Re-Education: 1: side stepping using SC 20' 4x each direction 2: reverse ambulation 20' 4x using SC Skilled Intervention: Skilled judgment used to assess appropriate program for balance and coordination activity. Education in proprioceptive/kinesthetic awareness during standing and dynamic activities. Ensured patient safety with use of gait belt and SC. Patient education as noted. Gait Training: Distance (feet): 480 Gait Cues: cues to avoid shuffling, especially LLE Assistive Device: SC Assist Level: CGA 1: 6 MWT with SC x 480' (pt. very fatigued) Skilled Intervention: Facilitated proper gait cycle with the use of verbal and visual cues for correction of gait deviations identified in the objective section above. Gait belt utilized during session for safety. Correct performance of home program was facilitated with verbal and visual cueing. Self-Senior Living Management: 1: *strongly encouraged pt. to be seen by PCP, tells PT that pt. seems mroe confused and she has been taking notes about his behavior and mental status 2: *encouraged pt. to walk 5-6 minutes, everyother day at least 3 days a week for exercise to improve endurance. Skilled Intervention: Skilled judgment in the selection of proper modification for activity of daily living/home management based on clinical presentation, deficits, and needs. Reviewed patient specific diagnosis in relation to activities of daily living/home management. Activity progression based on professional judgement. Correct performance of home program was facilitated with verbal and visual cueing. Billing Therapeutic Exercise Treatment Minutes: 15 Neuromuscular Re-Education Treatment Minutes: 10 Self-Care/Home Management Treatment Minutes: 5 Gait Training Treatment Minutes: 10 Total Treatment Time Minutes (timed/untimed): 40 Justina Escoto PT documented in this encounter [facility] 12-17-2022 Note HNO ID: [id number] Author: Justina Escoto PT Service: ? Author Type: Physical Therapist Type: Progress Notes Filed: 12/17/2022 3:52 PM Note Text: Episode Visit Count: 6 Therapist That Will Accept/Oversee The Plan Of Care: Justina Escoto Start of Care Date: 11/29/22 Onset Date: 09/29/22 Plan of Care Certification Date: 11/29/22 Next Certification Due Date: 01/03/23 REHABILITATION AND SPORTS THERAPY PHYSICAL THERAPY TREATMENT NOTE ASSESSMENT: Richard Roy tolerated the session with fatigue. He demonstrated difficulty with remembering to reach back for armrests of chair prior to sitting. The patient will continue to benefit from ongoing skilled physical therapy to progress toward set goals. PLAN FOR NEXT VISIT: Continue balance activities with eyes open/closed. Continue providing safety awareness education SUBJECTIVE: Patient Reason for Visit: Pt. fell attempting to sit on the toilet. He was able to get up off the floor himself. Denies pain today. present reports she usually keeps the lights on for the pt. when she goes to bed, but he turned them off for some reason, then attempted to walk in the dark. She had to turn on the lights for pt. when she found him in the bathroom on the floor. He was able to get himself up off the floor. Pain: Pain Pain Level: 0 Pain Location: Low Back/Lumbar Spine- Midline OBJECTIVE MEASURES WITH LEVEL OF FUNCTION: TREATMENT: Therapeutic Exercise: 1: seated SciFit 5 min level 2, 1:1 throughout, subjective taken 2: step ups 2x12 x1 UE support each LE, cues to take bigger steps and slow down his pace on the second sets of each 3: seated knee LAQ 2x10 each side (max cues for technique) Skilled Intervention: Patient was educated in proper exercise technique and purpose for exercises. Skilled judgment was provided in selection of appropriate interventions. Correct performance of therapeutic exercises was facilitated with verbal, visual, and tactile cuing. Educated patient on rationale for performing exercises in regards to decreasing fatigue , including balance, increase ease of ADL, and ROM and function . Patient education as noted. Neuromuscular Re-Education: 1: stand up and step forward 2x steps eyes open, close eyes and reverse step to chair, reach back, and sit down 5x 2: sit <> stand 2 sets 5x, eyes closed Skilled Intervention: Skilled judgment used to assess appropriate program for balance and coordination activity. Education in proprioceptive/kinesthetic awareness during standing and dynamic activities. Ensured patient safety with use of gait belt. Patient education as noted. Self-Senior Living Management: 1: *discussed automatic lights 2: *discussed keeping cellphone or some type of emergency contact should pt. fall again. 3: *discussed reaching back for surfaces prior to standing or sitting Skilled Intervention: Skilled judgment in the selection of proper modification for activity of daily living/home management based on clinical presentation, deficits, and needs. Reviewed patient specific diagnosis in relation to activities of daily living/home management. Activity progression based on professional judgement. Reviewed and educated patient on additions/changes for home program as noted above with an (*). Billing Therapeutic Exercise Treatment Minutes: 15 Neuromuscular Re-Education Treatment Minutes: 10 Self-Care/Home Management Treatment Minutes: 15 Total Treatment Time Minutes (timed/untimed): 40 Justina Escoto, PT [facility] 12-17-2022 History of Presen t illness Narrative Episode Visit Count: 6 Therapist That Will Accept/Oversee The Plan Of Care: Justina Escoto Start of Care Date: 11/29/22 Onset Date: 09/29/22 Plan of Care Certification Date: 11/29/22 Next Certification Due Date: 01/03/23 REHABILITATION AND SPORTS THERAPY PHYSICAL THERAPY TREATMENT NOTE ASSESSMENT: Richard Roy tolerated the session with fatigue. He demonstrated difficulty with remembering to reach back for armrests of chair prior to sitting. The patient will continue to benefit from ongoing skilled physical therapy to progress toward set goals. PLAN FOR NEXT VISIT: Continue balance activities with eyes open/closed. Continue providing safety awareness education SUBJECTIVE: Patient Reason for Visit: Pt. fell attempting to sit on the toilet. He was able to get up off the floor himself. Denies pain today. present reports she usually keeps the lights on for the pt. when she goes to bed, but he turned them off for some reason, then attempted to walk in the dark. She had to turn on the lights for pt. when she found him in the bathroom on the floor. He was able to get himself up off the floor. Pain: Pain Pain Level: 0 Pain Location: Low Back/Lumbar Spine- Midline OBJECTIVE MEASURES WITH LEVEL OF FUNCTION: TREATMENT: Therapeutic Exercise: 1: seated SciFit 5 min level 2, 1:1 throughout, subjective taken 2: step ups 2x12 x1 UE support each LE, cues to take bigger steps and slow down his pace on the second sets of each 3: seated knee LAQ 2x10 each side (max cues for technique) Skilled Intervention: Patient was educated in proper exercise technique and purpose for exercises. Skilled judgment was provided in selection of appropriate interventions. Correct performance of therapeutic exercises was facilitated with verbal, visual, and tactile cuing. Educated patient on rationale for performing exercises in regards to decreasing fatigue , including balance, increase ease of ADL, and ROM and function . Patient education as noted. Neuromuscular Re-Education: 1: stand up and step forward 2x steps eyes open, close eyes and reverse step to chair, reach back, and sit down 5x 2: sit <> stand 2 sets 5x, eyes closed Skilled Intervention: Skilled judgment used to assess appropriate program for balance and coordination activity. Education in proprioceptive/kinesthetic awareness during standing and dynamic activities. Ensured patient safety with use of gait belt. Patient education as noted. Self-Senior Living Management: 1: *discussed automatic lights 2: *discussed keeping cellphone or some type of emergency contact should pt. fall again. 3: *discussed reaching back for surfaces prior to standing or sitting Skilled Intervention: Skilled judgment in the selection of proper modification for activity of daily living/home management based on clinical presentation, deficits, and needs. Reviewed patient specific diagnosis in relation to activities of daily living/home management. Activity progression based on professional judgement. Reviewed and educated patient on additions/changes for home program as noted above with an (*). Billing Therapeutic Exercise Treatment Minutes: 15 Neuromuscular Re-Education Treatment Minutes: 10 Self-Care/Home Management Treatment Minutes: 15 Total Treatment Time Minutes (timed/untimed): 40 Justina Escoto PT documented in this encounter [facility] 12-14-2022 Note HNO ID: [id number] Author: Justina Escoto PT Service: ? Author Type: Physical Therapist Type: Progress Notes Filed: 12/14/2022 3:16 PM Note Text: Episode Visit Count: 5 Therapist That Will Accept/Oversee The Plan Of Care: Justina Escoto Start of Care Date: 11/29/22 Onset Date: 09/29/22 Plan of Care Certification Date: 11/29/22 Next Certification Due Date: 01/03/23 REHABILITATION AND SPORTS THERAPY PHYSICAL THERAPY TREATMENT NOTE ASSESSMENT: Richard Roy tolerated the session with fatigue. He demonstrated difficulty with gait step length, but demonstrated much improved gait pattern with RLE heel strike when cued to take bigger steps with the RLE. The patient will continue to benefit from ongoing skilled physical therapy to progress toward set goals. PLAN FOR NEXT VISIT: Continue balance and gait training, progress to side stepping with SC SUBJECTIVE: Patient Reason for Visit: Visit began 13 min early due to pt. early arrival. Pt. denies falls. Pain: Pain Pain Level: 0 Pain Location: Low Back/Lumbar Spine- Midline OBJECTIVE MEASURES WITH LEVEL OF FUNCTION: TREATMENT: Therapeutic Exercise: 1: seated SciFit 5 min level 2, 1:1 throughout, subjective taken 2: forward step ups 6 x1 UE support // bars 2x12 each side lead Skilled Intervention: Patient was educated in proper exercise technique and purpose for exercises. Reviewed and educated patient on additions/changes for home exercise program as above (*). Skilled judgment was provided in selection of appropriate interventions. Additional time necessary for intermittent seated rest due to fatigue. Educated patient on rationale for performing exercises in regards to decreasing fatigue , including balance, increase ease of ADL, and ROM and function . Patient education as noted. Neuromuscular Re-Education: 1: BOSU ball taps in // bars 2x20 x1 UE support 2: stepping over foam curb 2x 6 each LE lead using SC 3: rocker board 20 taps x2 UE support, 20x with 1 UE // bars, x20 with arms crossed Skilled Intervention: Skilled judgment used to assess appropriate program for balance and coordination activity. Education in proprioceptive/kinesthetic awareness during standing and dynamic activities. Ensured patient safety with use of gait belt. Patient education as noted. Gait Training: Distance (feet): 40' 12x Gait Cues: increase step distance of RLE, pt. requires moderate cues to remember this but able to follow cues well Assistive Device: SC Assist Level: CGA Skilled Intervention: Facilitated proper gait cycle with the use of verbal and visual cues for correction of gait deviations identified in the objective section above. Gait belt utilized during session for safety. Correct performance of home program was facilitated with verbal and visual cueing. Billing Therapeutic Exercise Treatment Minutes: 5 Neuromuscular Re-Education Treatment Minutes: 10 Gait Training Treatment Minutes: 25 Total Treatment Time Minutes (timed/untimed): 40 Justina Escoto, PT [facility] 12-14-2022 History of Presen t illness Narrative Episode Visit Count: 5 Therapist That Will Accept/Oversee The Plan Of Care: Justina Escoto Start of Care Date: 11/29/22 Onset Date: 09/29/22 Plan of Care Certification Date: 11/29/22 Next Certification Due Date: 01/03/23 REHABILITATION AND SPORTS THERAPY PHYSICAL THERAPY TREATMENT NOTE ASSESSMENT: Richard Roy tolerated the session with fatigue. He demonstrated difficulty with gait step length, but demonstrated much improved gait pattern with RLE heel strike when cued to take bigger steps with the RLE. The patient will continue to benefit from ongoing skilled physical therapy to progress toward set goals. PLAN FOR NEXT VISIT: Continue balance and gait training, progress to side stepping with SC SUBJECTIVE: Patient Reason for Visit: Visit began 13 min early due to pt. early arrival. Pt. denies falls. Pain: Pain Pain Level: 0 Pain Location: Low Back/Lumbar Spine- Midline OBJECTIVE MEASURES WITH LEVEL OF FUNCTION: TREATMENT: Therapeutic Exercise: 1: seated SciFit 5 min level 2, 1:1 throughout, subjective taken 2: forward step ups 6 x1 UE support // bars 2x12 each side lead Skilled Intervention: Patient was educated in proper exercise technique and purpose for exercises. Reviewed and educated patient on additions/changes for home exercise program as above (*). Skilled judgment was provided in selection of appropriate interventions. Additional time necessary for intermittent seated rest due to fatigue. Educated patient on rationale for performing exercises in regards to decreasing fatigue , including balance, increase ease of ADL, and ROM and function . Patient education as noted. Neuromuscular Re-Education: 1: BOSU ball taps in // bars 2x20 x1 UE support 2: stepping over foam curb 2x 6 each LE lead using SC 3: rocker board 20 taps x2 UE support, 20x with 1 UE // bars, x20 with arms crossed Skilled Intervention: Skilled judgment used to assess appropriate program for balance and coordination activity. Education in proprioceptive/kinesthetic awareness during standing and dynamic activities. Ensured patient safety with use of gait belt. Patient education as noted. Gait Training: Distance (feet): 40' 12x Gait Cues: increase step distance of RLE, pt. requires moderate cues to remember this but able to follow cues well Assistive Device: SC Assist Level: CGA Skilled Intervention: Facilitated proper gait cycle with the use of verbal and visual cues for correction of gait deviations identified in the objective section above. Gait belt utilized during session for safety. Correct performance of home program was facilitated with verbal and visual cueing. Billing Therapeutic Exercise Treatment Minutes: 5 Neuromuscular Re-Education Treatment Minutes: 10 Gait Training Treatment Minutes: 25 Total Treatment Time Minutes (timed/untimed): 40 Justina Escoto PT documented in this encounter [facility] 12-12-2022 Note HNO ID: [id number] Author: Justina Escoto PT Service: ? Author Type: Physical Therapist Type: Progress Notes Filed: 12/12/2022 6:34 PM Note Text: Episode Visit Count: 4 Therapist That Will Accept/Oversee The Plan Of Care: Justina Escoto Start of Care Date: 11/29/22 Onset Date: 09/29/22 Plan of Care Certification Date: 11/29/22 Next Certification Due Date: 01/03/23 REHABILITATION AND SPORTS THERAPY PHYSICAL THERAPY TREATMENT NOTE ASSESSMENT: Richard Roy tolerated the session with fatigue. He demonstrated difficulty with stepping up 4 and stepping over 6 hurdles when leading with the LLE as compared to the right LE. Requires frequent reminders to weight bear through his SC to assist with balance. As pt. Becomes fatigued, he begins to shuffle his feet more. The patient will continue to benefit from ongoing skilled physical therapy to progress toward set goals. PLAN FOR NEXT VISIT: Continue balance training, try SLS with // bar UE support. Continue functional strengthening. SUBJECTIVE: Patient Reason for Visit: Visit began 15 min early due to pt. early arrival. Pt. denies pain or falls. states pt. has stumbled over boxes without fall in the home, but pt. has gotten on a tractor without assistance. Pain: Pain Pain Level: 0 Pain Location: Low Back/Lumbar Spine- Midline OBJECTIVE MEASURES WITH LEVEL OF FUNCTION: TREATMENT: Therapeutic Exercise: 1: seated SciFit 5 min level 2, 1:1 throughout, subjective taken 2: forward step ups 4 x1 UE support // bars 2x12 each side lead 3: standing in // bars heel raises 2x10-- unable to complete full reps Skilled Intervention: Patient was educated in proper exercise technique and purpose for exercises. Skilled judgment was provided in selection of appropriate interventions. Correct performance of therapeutic exercises was facilitated with verbal, visual, and tactile cuing. Educated patient on rationale for performing exercises in regards to decreasing fatigue , including balance, increase ease of ADL, and ROM and function . Patient education as noted. Neuromuscular Re-Education: 1: stepping forward over 6x6 hurdles 20' 6x lead R and 6x lead L, cues to use cane 2: lateral stepping over single 6 gustavo 3x10, x1 UE at // bars. 3: eyes closed STS 3x5, requires CGA at gait belt Skilled Intervention: Skilled judgment used to assess appropriate program for balance and coordination activity. Education in proprioceptive/kinesthetic awareness during standing and dynamic activities. Ensured patient safety with use of gait belt and // bars. Patient education as noted. Gait Training: Distance (feet): 40' 4x Gait Cues: heel strike, UE WB through cane to increase step ht. Assistive Device: SC Assist Level: CGA/ intermittent Rosa Isela x1 Skilled Intervention: Patient was provided minimal assistance during pre-gait/gait training to prevent falls and insure safety. Facilitated proper gait cycle with the use of verbal, visual, and tactile cues for correction of gait deviations identified in the objective section above. Gait belt utilized during session for safety. Billing Therapeutic Exercise Treatment Minutes: 10 Neuromuscular Re-Education Treatment Minutes: 25 Gait Training Treatment Minutes: 10 Total Treatment Time Minutes (timed/untimed): 40 Justina Escoto, PT [facility] 12-12-2022 History of Presen t illness Narrative Episode Visit Count: 4 Therapist That Will Accept/Oversee The Plan Of Care: Justina Escoto Start of Care Date: 11/29/22 Onset Date: 09/29/22 Plan of Care Certification Date: 11/29/22 Next Certification Due Date: 01/03/23 REHABILITATION AND SPORTS THERAPY PHYSICAL THERAPY TREATMENT NOTE ASSESSMENT: Richard Roy tolerated the session with fatigue. He demonstrated difficulty with stepping up 4 and stepping over 6 hurdles when leading with the LLE as compared to the right LE. Requires frequent reminders to weight bear through his SC to assist with balance. As pt. Becomes fatigued, he begins to shuffle his feet more. The patient will continue to benefit from ongoing skilled physical therapy to progress toward set goals. PLAN FOR NEXT VISIT: Continue balance training, try SLS with // bar UE support. Continue functional strengthening. SUBJECTIVE: Patient Reason for Visit: Visit began 15 min early due to pt. early arrival. Pt. denies pain or falls. states pt. has stumbled over boxes without fall in the home, but pt. has gotten on a tractor without assistance. Pain: Pain Pain Level: 0 Pain Location: Low Back/Lumbar Spine- Midline OBJECTIVE MEASURES WITH LEVEL OF FUNCTION: TREATMENT: Therapeutic Exercise: 1: seated SciFit 5 min level 2, 1:1 throughout, subjective taken 2: forward step ups 4 x1 UE support // bars 2x12 each side lead 3: standing in // bars heel raises 2x10-- unable to complete full reps Skilled Intervention: Patient was educated in proper exercise technique and purpose for exercises. Skilled judgment was provided in selection of appropriate interventions. Correct performance of therapeutic exercises was facilitated with verbal, visual, and tactile cuing. Educated patient on rationale for performing exercises in regards to decreasing fatigue , including balance, increase ease of ADL, and ROM and function . Patient education as noted. Neuromuscular Re-Education: 1: stepping forward over 6x6 hurdles 20' 6x lead R and 6x lead L, cues to use cane 2: lateral stepping over single 6 gustavo 3x10, x1 UE at // bars. 3: eyes closed STS 3x5, requires CGA at gait belt Skilled Intervention: Skilled judgment used to assess appropriate program for balance and coordination activity. Education in proprioceptive/kinesthetic awareness during standing and dynamic activities. Ensured patient safety with use of gait belt and // bars. Patient education as noted. Gait Training: Distance (feet): 40' 4x Gait Cues: heel strike, UE WB through cane to increase step ht. Assistive Device: SC Assist Level: CGA/ intermittent Rosa Isela x1 Skilled Intervention: Patient was provided minimal assistance during pre-gait/gait training to prevent falls and insure safety. Facilitated proper gait cycle with the use of verbal, visual, and tactile cues for correction of gait deviations identified in the objective section above. Gait belt utilized during session for safety. Billing Therapeutic Exercise Treatment Minutes: 10 Neuromuscular Re-Education Treatment Minutes: 25 Gait Training Treatment Minutes: 10 Total Treatment Time Minutes (timed/untimed): 40 Justina Escoto PT documented in this encounter [facility] 12-06-2022 Note HNO ID: [id number] Author: Justina Escoto, PT Service: ? Author Type: Physical Therapist Type: Progress Notes Filed: 12/06/2022 10:02 AM Note Text: Episode Visit Count: 3 Therapist That Will Accept/Oversee The Plan Of Care: Justina Escoto Start of Care Date: 11/29/22 Onset Date: 09/29/22 Plan of Care Certification Date: 11/29/22 Next Certification Due Date: 01/03/23 REHABILITATION AND SPORTS THERAPY PHYSICAL THERAPY TREATMENT NOTE ASSESSMENT: Richard Roy tolerated the session with fatigue. He demonstrated improvements in dynamic balance tasks with head movement. Pt. Did have difficulty with stepping over obstacles. The patient will continue to benefit from ongoing skilled physical therapy to progress toward set goals. PLAN FOR NEXT VISIT: step ups and provide HEP for functional exercise SUBJECTIVE: Patient Reason for Visit: pt. denies falls, says he is doing well. Pain: Pain Pain Location: Low Back/Lumbar Spine- Midline Post Treatment Pain Post Treatment Pain Location: Low Back/Lumbar Spine- Midline Post Treatment Symptoms: pt. continues to state he has no goals OBJECTIVE MEASURES WITH LEVEL OF FUNCTION: TREATMENT: Neuromuscular Re-Education: 1: seated without UE support head vertical movement x30 sec 2: seated without UE support head horrizontal movement x30 sec 3: standing without UE support head vertical movement x30 sec 4: standing without UE support head horrizontal movement x30 sec 5: amb with vertical head movement 20' 6x using SC (unable to move the head quickly, but no LOB) 6: amb with horrizontal head movement 20' 6x using SC (unable to move the head quickly, but no LOB) 7: 20' 6x6 obstacles, 12 times using SC 8: lateral step over single 6 obstacle using SC 2x10 (requires multiple steps to regain his balance with each step over) 9: static regular stance on foam with SC 3x30 sec, cues to look forward 10: romberg level surface with forward gaze 2x 30 sec 11: fwd amb eyes closed 40' with SC 12: rev amb eyes open with SC 40' Skilled Intervention: Skilled judgment used to assess appropriate program for balance and coordination activity. Education in proprioceptive/kinesthetic awareness during dynamic activities. Reviewed and educated patient on additions/changes for home program as noted above with an (*). Patient education as noted. Gait Training: Distance (feet): 5x50 Gait Cues: maintaining forward gaze -- pt. is able to maintain without looking at his feet Assistive Device: SC Assist Level: CGA to minAx1 Skilled Intervention: Gait belt utilized during session for safety. Reviewed and educated patient on additions/changes for home program as noted above with an (*). Correct performance of home program was facilitated with verbal, visual, and tactile cueing. Billing Neuromuscular Re-Education Treatment Minutes: 30 Gait Training Treatment Minutes: 10 Total Treatment Time Minutes (timed/untimed): 40 Justina Escoto, PT [facility] 12-03-2022 Note HNO ID: [id number] Author: Bobbi Garcia MD Service: ? Author Type: Physician Type: Progress Notes Filed: 12/03/2022 12:13 PM Note Text: [facility] Cardiology ([facility]) [address] [facility] [id number] OUTPATIENT VISIT DATE 12/03/2022 PRIMARY CARE PHYSICIAN: Abdulaziz Caldera [address] [place] [address] HISTORY OF PRESENT ILLNESS: Mr. 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 Patient's accompanied him to the office visit. She reports that the patient sits most of the time throughout the day. He will sit up to 3 hours at a time without walking or standing. He is also lost interest in any social activities. She feels that he is struggling with depression. However, the patient denies symptoms of depression. He has not had symptoms of chest pain or pressure. He has noticed increased weakness and back pain. He has not had symptoms concerning for CHF including PND, orthopnea, or lower extremity edema. PAST MEDICAL HISTORY Diagnosis Date BPH (benign prostatic hyperplasia) Cholelithiasis 09/25/2013 Chronic neutrophilia Benign-Dr. 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 ([facility]) 05/25/2018 History of transfusion Hyperlipidemia LDL goal < 100 04/01/2012 NSTEMI (non-ST elevated myocardial infarction) ([facility]) Pulmonary embolus, right ([facility]) 09/25/2013 Status post aortic valve repair 2005 Thoracic aneurysm without mention of rupture Type 2 diabetes mellitus with stage 3 chronic kidney disease, with long-term current use of insulin ([facility]) 06/20/2016 Vitamin D deficiency 01/03/2022 PAST SURGICAL HISTORY Procedure Laterality Date ABDOMINAL SURGERY HX AMPUTATION METATARSAL+TOE,SINGLE Right 05/25/2018 with delayed closure on 05/28/18. Dr. Obregon at [facility] COLONOSCOPY 10/10/2021 repeat in 3 years COLONOSCOPY FLX DX W/COLLJ SPEC WHEN PFRMD 03/12/2011 DEBRIDEMENT OF SKIN, FULL THIC 09/12/2010 LEFT GROIN DEBRIDEMENT OPEN WOUND 20 SQ CM/< 11/22/2010 Debridement posterior neck/IANDD LLQ abd DEBRIDEMENT SUBCUTANEOUS TISSUE 20 SQ CM/< 09/11/2010 LEFT GROIN ESOPHAGOGASTRODUODENOSCOPY TRANSORAL DIAGNOSTIC 01/11/2019 EGD HEART SURGERY HX INCISION AND DRAINAGE ABSCESS SIMPLE/SINGLE 09/08/2010 IANDD abscess left groin INCISION AND DRAINAGE ABSCESS SIMPLE/SINGLE 10/23/2010 IANDD medial to left groin wound INCISION AND DRAINAGE ABSCESS SIMPLE/SINGLE 01/22/2011 IANDD LLQ superficial abscess REM LESION TRUNK,ARM, LEG <0.5 CM 03/21/2011 Exc. fibroepithelial polyp LLQ abd REVISION OF AORTIC VALVE 2005 Repair of Aortic Value/Thoracic anerusym repair SKIN BIOPSY HX SOCIAL HISTORY Social History Tobacco Use Smoking status: Never Smokeless tobacco: Never Vaping Use Vaping Use: Never used Substance Use Topics Alcohol use: No Drug use: No FAMILY HISTORY Problem Relation Age of Onset No Known Problems Mother Heart Father Bypass and valve replaced Breast Cancer Sister No Known Problems Brother No Known Problems Son No Known Problems Son ALLERGIES: ALLERGIES Allergen Reactions Pantoprazole Diarrhea MEDICATIONS: metFORMIN ER (GLUCOPHAGE XR) 500 mg 24 hr tabletTake 2 tablets by mouth twice daily with meals.Disp: 360 tabletRfl: 1 fluticasone (FLONASE) 50 mcg/actuation nasal sprayUse 2 Sprays in each nostril once daily. Rinse mouth after use.Disp: 3 EachRfl: 1 insulin aspart U-100 (NOVOLOG FLEXPEN U-100 INSULIN) 100 unit/mL (3 mL)Inject with meals according to sliding scale: 100-200=3 units, 201-250=5 units, 251-300=8 units, 301-350=12 units, 351-400=15 units. Max dose per meal, 15 units. Max dose per day: 45 units.Disp: 5 EachRfl: 5 warfarin (COUMADIN) 5 mg [id number] mg Saturday and Saturday, 7.5 mg all other days or as directed.Disp: 180 tabletRfl: 1 losartan (COZAAR) 50 mg tabletTake 1 tablet by mouth once daily.Disp: 90 tabletRfl: 1 metoprolol succinate ER (TOPROL XL) 200 mg 24 hr tabletTake 1 tablet by mouth once daily.Disp: 90 tabletRfl: 3 tamsulosin (FLOMAX) 0.4 mgTake 1 capsule by mouth daily at bedtime.Disp: 90 capsuleRfl: 1 amLODIPine (NORVASC) 2.5 mg tabletTake 1 tablet by mouth once daily.Disp: 30 tabletRfl: 5 insulin glargine (LANTUS SOLOSTAR U-100 INSULIN) 100 unit/mL (3 mL)Inject 12 Units subcutaneously daily (more content not included)... [facility] 12-03-2022 Note HNO ID: [id number] Author: Justina Escoto, PT Service: ? Author Type: Physical Therapist Type: Progress Notes Filed: 12/03/2022 9:38 AM Note Text: Episode Visit Count: 2 Therapist That Will Accept/Oversee The Plan Of Care: Justina Escoto Start of Care Date: 11/29/22 Onset Date: 09/29/22 Plan of Care Certification Date: 11/29/22 Next Certification Due Date: 01/03/23 REHABILITATION AND SPORTS THERAPY PHYSICAL THERAPY TREATMENT NOTE ASSESSMENT: Richard Roy tolerated the session with no issues. He demonstrated difficulty with vertical head movements and walking during the DGI test. He demonstrates safety concerns with ascending and descending steps without a HR while using only SC.The patient will continue to benefit from ongoing skilled physical therapy to progress toward set goals. PLAN FOR NEXT VISIT: SUBJECTIVE: Patient Reason for Visit: Presents with both shoes donned. Denies LBP. HEP exericse effective. Pt. denies falls. Pain: Pain Pain Location: Low Back/Lumbar Spine- Midline Post Treatment Pain Post Treatment Pain Location: Low Back/Lumbar Spine- Midline OBJECTIVE MEASURES WITH LEVEL OF FUNCTION: Functional Performance Test Results Assistive Device: Cane 30 Second Chair Stand Test: 8 reps Timed Up and Go (sec): 14.17 sec Timed Up and Go - Condition 2 (sec) : 12.58 Dynamic Gait Index Gait level surface : 1 - Moderate impairment- walks 20', slow speed, abnormal gait pattern, evidence for imbalance Change in gait speed: 1 - Moderate impairment- makes only minor adjustments to walking speed or accomplishes a change in speed with significant gait deviations or changes speed but loses balance but is able to recover and continue walking Gait and horizontal head turns: 1 - Moderate impairment- performs R/L head turns with moderate change in gait velocity, slows down, staggers but recovers, can continue to walk Gait and vertical head turns: 0 - Severe impairment- performs task with severe disruption of gait, staggers outside 15 path, loses balance, stops, reaches for wall Gait and pivot: 1 - Moderate impairment- turns slowly, requires verbal cueing, requires several small steps following turn and stop Step over obstacle: 2 - Mild impairment- is able to step over box, but must slow down and adjust steps to clear box Step around obstacle: 1 - Moderate impairment- able to clear cones, but must significantly slow speed or requires verbal cueing Dynamic Gait Index Total: 7 TREATMENT: Therapeutic Exercise: 1: SciFit stepper x 5 min, seat 16, level 2, 1:1 throughout, subjective collected discussing response to lumbar flexion repeated exercise 2: 30 sec sit <> stand test: Skilled Intervention: Patient was educated in proper exercise technique and purpose for exercises. Skilled judgment was provided in selection of appropriate interventions. Educated patient on rationale for performing exercises in regards to including balance, increase ease of ADL, and ROM and function . Patient education as noted. Neuromuscular Re-Education: 1: TUG test with SC 2x 6: gait level surface 40' with SC 7: gait level surface 40' with SC and horrizontal head movements 8: gait level surface 40' with SC and vertical head movements 9: gait level surface 40' with SC, turn and pivot 180 degrees 10: gait level surface 40' with SC, step over x 6 obstacle, 2x 11: gait level surface 40' with SC, step around 2x6 obstacle, 2x Skilled Intervention: Ensured patient safety with use of gait belt. Reviewed and educated patient on additions/changes for home program as noted above with an (*). Patient education as noted. Gait Training: Assistive Device: SC Assist Level: MinAx1 Stair Traininx6 steps, attempted ascend and descend with SC and no HR- (pt. enters his garage x3 steps without rail at home using his SC) pt. demonstrated LOB and required assistance + HR to recover. 4x6 steps with B HR asecnding and descending: pt. is able to complete with reciprocal pattern. Skilled Intervention: Facilitated proper gait cycle with the use of verbal, visual, and tactile cues for correction of gait deviations identified in the objective section above. Gait belt utilized during session for safety. Reviewed and educated patient on additions/changes for home program as noted above with an (*). Correct performance of home program was facilitated with verbal, visual, and tactile cueing. Self-Senior Living Management: 1: *at length discussed importance of letting physician know about pt. concerns with his loss of interest in things prior to COVID-19 pandemic 2: *discussed that motivation will come from the pt. 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 3: *discussed with and pt. that pt. stating I'm lazy. is not his personality and pt. states that he does not want to be this way, but he wants to be comfortable. (more content not included)... [facility] 11-29-2022 Note HNO ID: [id number] Author: Justina Escoto, PT Service: ? Author Type: Physical Therapist Type: Progress Notes Filed: 11/29/2022 12:12 PM Note Text: Episode Visit Count: 1 Therapist That Will Accept/Oversee The Plan Of Care: Justina Escoto Start of Care Date: 11/29/22 Onset Date: 09/29/22 Plan of Care Certification Date: 11/29/22 Next Certification Due Date: 01/03/23 Patient Identified by Name and Date of : Yes REHABILITATION AND SPORTS THERAPY PHYSICAL THERAPY EVALUATION PLAN OF CARE: Assessment: Richard Roy presents with diagnosis of chronic bilateral low back pain without sciatica that interferes with standing ( I cant really say any certain things. ) . He presents with impairments in ADL's, balance, gait, independence in exercise, joint mobility, overall function, patient reported outcome measures, posture, strength, and symptom management. PROMIS? (Patient-Reported Outcomes Measurement Information System) scores were reviewed and physical function domain and self efficacy domain identified as a rehabilitation concern. Prognosis for therapy is Fair due to: limited tolerance to activity, coping skills, decreased motivation, chronic nature of impairments, clinical presentation, multiple co- morbidities, advanced age, poor historian, poor understanding of deficits, Prognosis may be improved by good support system/ coping skills. He will benefit from skilled therapy services to meet the goals established for this plan of care as noted below. Classification Low Back Pain Subgroup Classification: Specific exercise subgroup: recommended visits 8. Specific Exercies Subgroup Classification based on: directional preference Goals for Episode of Care: created on 11/29/22 through 01/10/23 Patient will report no falls. Improve score on Timed Up and Go Test to <12 seconds to reflect decreased fall risk. Improve score on 30 Second Chair Stand to 11 repetitions to reflect decreased fall risk. Preston in home exercise program including cardiovascular exercise. Patient will demonstrate independent and proper use of assisstive device to allow for improved walking quality and safety therefore reducing the risk of falls. Patient will decrease pain rating by 2 points to meet Minimal Clinical Important Difference for number pain scale rating. Patient will be able to corect postrual deviations independently in order to to decrease current pain . Patient Goals: improve mobility, complete more tasks in the home Planned Interventions, Frequency, and Duration: Current Frequency: 2x/week Duration: 6 weeks Total Number of Visits Planned: 12 Planned Treatment Interventions: Therapeutic exercise (25991), Neuromuscular re-education (01079), Manual therapy (19295), Therapeutic activities (88877), Self-fdc management (06900), Gait Training (74943), Patient/Family/Caregiver Education PLAN FOR NEXT VISIT: Assess low back symptom response to repeated lumbar flexion. Assess balance next visit if pt. presents with both shoes donned. Patient demonstrates fair understanding of plan of care and treatment. The above goals and plan of care were discussed and agreed upon by patient/family. SUBJECTIVE: Richard Roy is a 77 year old male seen today for for chronic low back pain and imbalance. present expresses that she is doing most house tasks, including out door tasks completed by previously. Upon further discussion pt. admits he lacks motivation and has a fear of falling again. His most recent fall being about 2 weeks ago. He also has trouble with memory, providing a limited history and presents without a right shoe. He completes ADLs without assitance from the . Low back pain reduces with reclining back in his chair. Patient Goals: improve mobility, complete more tasks in the home Functional Limitations: standing ( I cant really say any certain things. ) Prior Level of Function: Independent without limitations Relevant History Past Relevant Medical Conditions: Diabetes, Hypertension, Cardiac Intake Information: Prescription present Previous Treatment: None Falls Interview: Uses an assistive device, Fall with injury in the last year Falls Intervention: More thorough falls assessment to be performed, Instructed patient on safety and use of assistive device and awareness in regards to falls prevention. Red Flags Vertebral Fracture Red Flags: Age >70 Vertebral Fracture Clinical Reasoning: Proceed with caution due to the above (1-2) risk factors Abdominal Aortic Aneurysm Red Flags: Age >60 Abdominal Aortic Aneurysm Clinical Reasoning: Proceed with caution Cancer Red Flags: Age >50 or <20 Cancer Clinical Reasoning: Proceed with caution Infection Clinical Reasoning: No identified risk factors. Cauda Equina Syndrome Clinical Reasoning: No identified risk factors. Red Flags - Cervical Cancer Red Flags: Age >50 or <20 [facility] (more content not included)... [facility] 11-20-2022 Miscellaneous Notes OMAR 11/19/22 Appointment scheduled 02/05/23 Please advise. Thank you. GABI Link Patient is currently out of this medication and would like sent JOSE if possible. Patient has been identified by name and date of : Yes Requested Prescriptions Pending Prescriptions Disp Refills metFORMIN ER (GLUCOPHAGE XR) 500 mg 24 hr tablet 360 tablet 1 Sig: Take 2 tablets by mouth twice daily with meals. RX INSTRUCTIONS: Patient requesting a call when RX is approved and sent to the pharmacy. Please call patient at: [phone]. Nola Castro Pss documented in this encounter [facility] 11-19-2022 Miscellaneous Notes Pt notified of results and provider message. Pt voiced understanding. Tania Heller LPN INR therapeutic. Continue current coumadin dosage and follow up in 4 weeks. Current INR: 3.2 Current dose: 10 mg Mon and Wed and 7.5 mg all other days Last INR: PT INR 2.5 10/22/2022 Current dose of coumadin is: 10mg M & , 7.5mg all other days. Last date of dose change: unknown. Previous INR (date and result): 09/24/2022 2.5 documented in this encounter [facility] 11-19-2022 Note HNO ID: [id number] Author: Abdulaziz Caldera MD Service: ? Author Type: Physician Type: Progress Notes Filed: 11/19/2022 9:24 AM Note Text: Chief Complaint Patient presents with: Back Pain: Mid back pain-for several months HPI Richard Roy is a 77 year old male who presents here today for Above Complaints.. Accompanied today by his . Patient complaining of chronic lower back pain which has been going on for several months. Described as intermittent aching pain without radiation. Exacerbated with walking/sitting for long periods, walking. Improved with lying back in his chair. Not taking anything OTC for pain. Denies loss of bowel/bladder control, saddle anesthesia, LE weakness, fall/injury. Past medical history, appointments, medications, allergies reviewed. Previous Medical History PAST MEDICAL HISTORY Diagnosis Date BPH (benign prostatic hyperplasia) Cholelithiasis 09/25/2013 Chronic neutrophilia Benign-Dr. 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 ([facility]) 05/25/2018 History of transfusion Hyperlipidemia LDL goal < 100 04/01/2012 NSTEMI (non-ST elevated myocardial infarction) ([facility]) Pulmonary embolus, right ([facility]) 09/25/2013 Status post aortic valve repair 2004 Thoracic aneurysm without mention of rupture Type 2 diabetes mellitus with stage 3 chronic kidney disease, with long-term current use of insulin ([facility]) 06/20/2016 Vitamin D deficiency 01/03/2022 Previous Surgical History PAST SURGICAL HISTORY Procedure Laterality Date ABDOMINAL SURGERY HX AMPUTATION METATARSAL+TOE,SINGLE Right 05/25/2018 with delayed closure on 05/28/18. Dr. Obregon at [facility] COLONOSCOPY 10/10/2021 repeat in 3 years COLONOSCOPY FLX DX W/COLLJ SPEC WHEN PFRMD 03/12/2011 DEBRIDEMENT OF SKIN, FULL THIC 09/12/2010 LEFT GROIN DEBRIDEMENT OPEN WOUND 20 SQ CM/< 11/22/2010 Debridement posterior neck/IANDD LLQ abd DEBRIDEMENT SUBCUTANEOUS TISSUE 20 SQ CM/< 09/11/2010 LEFT GROIN ESOPHAGOGASTRODUODENOSCOPY TRANSORAL DIAGNOSTIC 01/11/2019 EGD HEART SURGERY HX INCISION AND DRAINAGE ABSCESS SIMPLE/SINGLE 09/08/2010 IANDD abscess left groin INCISION AND DRAINAGE ABSCESS SIMPLE/SINGLE 10/23/2010 IANDD medial to left groin wound INCISION AND DRAINAGE ABSCESS SIMPLE/SINGLE 01/22/2011 IANDD LLQ superficial abscess REM LESION TRUNK,ARM, LEG <0.5 CM 03/21/2011 Exc. fibroepithelial polyp LLQ abd REVISION OF AORTIC VALVE 2005 Repair of Aortic Value/Thoracic anerusym repair SKIN BIOPSY HX Family History FAMILY HISTORY Problem Relation Age of Onset No Known Problems Mother Heart Father Bypass and valve replaced Breast Cancer Sister No Known Problems Brother No Known Problems Son No Known Problems Son Patient Allergies ALLERGIES Allergen Reactions Pantoprazole Diarrhea Current Medications Current Outpatient Medications on File Prior to Visit Medication Sig fluticasone (FLONASE) 50 mcg/actuation nasal spray Use 2 Sprays in each nostril once daily. Rinse mouth after use. insulin aspart U-100 (NOVOLOG FLEXPEN U-100 INSULIN) 100 unit/mL (3 mL) Inject with meals according to sliding scale: 100-200=3 units, 201-250=5 units, 251-300=8 units, 301-350=12 units, 351-400=15 units. Max dose per meal, 15 units. Max dose per day: 45 units. warfarin (COUMADIN) 5 mg tablet 10 mg Saturday and Saturday, 7.5 mg all other days or as directed. losartan (COZAAR) 50 mg tablet Take 1 tablet by mouth once daily. metoprolol succinate ER (TOPROL XL) 200 mg 24 hr tablet Take 1 tablet by mouth once daily. tamsulosin (FLOMAX) 0.4 mg Take 1 capsule by mouth daily at bedtime. amLODIPine (NORVASC) 2.5 mg tablet Take 1 tablet by mouth once daily. insulin glargine (LANTUS SOLOSTAR U-100 INSULIN) 100 unit/mL (3 mL) Inject 12 Units subcutaneously daily at bedtime. dulaglutide (TRULICITY) 1.5 mg/0.5 mL pen injector Inject 1.5 mg subcutaneously one time a week. Inject once per week. Discard Pen After atorvastatin (LIPITOR) 40 mg tablet Take 1 tablet by mouth once daily. For cholesterol. B cmplx 4/vit D3/C/folic/zinc (VITAL-D RX ORAL) Take by mouth one time a week. metFORMIN ER (GLUCOPHAGE XR) 500 mg 24 hr tablet Take 2 tablets by mouth twice daily with meals. insulin needles, DISPOSABLE, (BD INSULIN PEN NEEDLE UF) 31 gauge x 5/16 1 Each four times daily. With insulin blood sugar diagnostic (ONETOUCH ULTRA TEST) test strip Test blood sugar(s) 3 times daily. Dx: E11.49. Insulin: Yes Current Facility-Administered Medications on File Prior to Visit Medication perflutren lipid microspheres 1.3 mL in NaCl (PF) 0.9% 10 mL injection (DEFINITY) sodium chloride 0.9 % (more content not included)... [facility] 10-22-2022 Note HNO ID: [id number] Author: Arminda Obregon Service: ? Author Type: Physician Type: Progress Notes Filed: 10/22/2022 3:47 PM Note Text: Last saw Dr. Caldera: 08/09/22 Subjective: Patient presents to clinic c/o painful toenails. They state that the nails are especially painful with shoe gear and pressure. Patient admits to being diabetic. No other pedal complaints at this time. Patient states no change in medications or medical history since last visit. Objective: Patient presents to clinic ambulating in diabetic shoes Vasc: DP and PT pulses are faintly palpable bilateral. CFT is less than 5 seconds bilateral. Skin temperature is warm to cool proximal to distal bilateral. There is mild edema or varicosities noted. Neuro: Protective sensation is absent to the foot and toes when tested with the 5.07 SWM bilateral. Vibratory sensation is absent at the hallux IPJ bilateral. The hallux is downgoing bilateral. Derm: Nails 1-5 left and 2-5 right are discolored-yellow, thick, crumbly, dystrophic and with subungal debris. Skin is of normal turgor, texture and hair growth is decreased bilateral. There are no hyperkeratosis, ulcerations, scars, verruca or other lesions noted. Ortho: Muscle strength is 5/5 for all pedal groups tested. Ankle joint DF is decreased with the knee extended with no pain or crepitus noted. Right hallux amputation. Assessment: (B35.1) Onychomycosis (primary encounter diagnosis) (M79.675) Pain in toe of left foot (S98.131A) Amputated toe of right foot (HCC) (E11.42) Diabetic polyneuropathy associated with type 2 diabetes mellitus (HCC) Plan: Patient was seen and evaluated. Nails 1-5 left and 2-5 right were debrided in length and thickness. Left hallux and left 3rd had superficial bleed treated with band aide and topical antibiotic. Call if any issues arise. Patient was instructed on the continued importance of diabetic foot care along with proper diet and keeping their blood sugar under control to prevent complications. Patient is to RTC in 3-4 months. Arminda Obregon DPM [facility] 10-22-2022 Note HNO ID: [id number] Author: Blaire Sandoval RN Service: ? Author Type: ? Type: Progress Notes Filed: 10/22/2022 3:47 PM Note Text: Patient presents with: Left Foot - Established Patient, Diabetic Foot Care Right Foot - Established Patient, Diabetic Foot Care [facility] 10-22-2022 History of Presen t illness Narrative Last saw Dr. Caldera: 08/09/22 Subjective: Patient presents to clinic c/o painful toenails. They state that the nails are especially painful with shoe gear and pressure. Patient admits to being diabetic. No other pedal complaints at this time. Patient states no change in medications or medical history since last visit. Objective: Patient presents to clinic ambulating in diabetic shoes Vasc: DP and PT pulses are faintly palpable bilateral. CFT is less than 5 seconds bilateral. Skin temperature is warm to cool proximal to distal bilateral. There is mild edema or varicosities noted. Neuro: Protective sensation is absent to the foot and toes when tested with the 5.07 SWM bilateral. Vibratory sensation is absent at the hallux IPJ bilateral. The hallux is downgoing bilateral. Derm: Nails 1-5 left and 2-5 right are discolored-yellow, thick, crumbly, dystrophic and with subungal debris. Skin is of normal turgor, texture and hair growth is decreased bilateral. There are no hyperkeratosis, ulcerations, scars, verruca or other lesions noted. Ortho: Muscle strength is 5/5 for all pedal groups tested. Ankle joint DF is decreased with the knee extended with no pain or crepitus noted. Right hallux amputation. Assessment: (B35.1) Onychomycosis (primary encounter diagnosis) (M79.675) Pain in toe of left foot (S98.131A) Amputated toe of right foot (HCC) (E11.42) Diabetic polyneuropathy associated with type 2 diabetes mellitus (HCC) Plan: Patient was seen and evaluated. Nails 1-5 left and 2-5 right were debrided in length and thickness. Left hallux and left 3rd had superficial bleed treated with band aide and topical antibiotic. Call if any issues arise. Patient was instructed on the continued importance of diabetic foot care along with proper diet and keeping their blood sugar under control to prevent complications. Patient is to RTC in 3-4 months. Arminda Obregon DPM Patient presents with: Left Foot - Established Patient, Diabetic Foot Care Right Foot - Established Patient, Diabetic Foot Care documented in this encounter [facility] 10-22-2022 Instructions Arminda Obregon - 10/22/2022 3:34 PM EDT Diabetes Foot Care Instructions When you have diabetes, proper foot care is very important. Poor foot care may lead to amputation of a foot or leg. As a person with diabetes, you are more vulnerable to foot problems, because diabetes can damage your nerves and reduce blood flow to your feet. Here are some diabetes foot care tips to follow: Wash and Dry Your Feet Daily Use mild soaps Use warm water Pat your skin dry; do not rub. Thoroughly dry your feet. After washing, use lotion on your feet to prevent cracking. Do not put lotion between your toes. Examine Your Feet Each Day Check the tops and bottoms of your feet. Have someone else look at your feet if you cannot see them. Check for dry, cracked skin. Look for blisters, cuts, scratches, or other sores. Check for redness, increased warmth, or tenderness when touching any area of your feet. Check for ingrown toenails, corns, and calluses. If you get a blister or sore from your shoes, do not pop it. Apply a bandage and wear a different pair of shoes. Take Care of Your Toenails Cut toenails after bathing, when they are soft. Cut toenails straight across and smooth with a nail file. Avoid cutting into the corners of toes. Do not cut cuticles. If you have neuropathy (or decreased sensation in your feet) a enrollment management vice president should always cut your toenails. Be Careful When Exercising Walk and exercise in comfortable shoes. Do not exercise when you have open sores on your feet. Protect Your Feet With Shoes and Socks Never go barefoot. Always protect your feet by wearing shoes or hard-soled slippers or footwear. Avoid shoes with high heels and pointed toes. Avoid shoes that expose your toes or heels (such as open-toed shoes or sandals). These types of shoes increase your risk for injury and potential infections. Try on new footwear with the type of socks you usually wear. Do not wear new shoes for more than an hour at a time. Change your socks daily. Look and feel inside your shoes before putting them on to make sure there are no foreign objects or rough areas. Avoid tight socks. Wear natural-fiber socks (cotton, wool, or a cotton-wool blend). Wear special shoes if your health care provider recommends them. Wear shoes/boots that will protect your feet from various weather conditions (cold, moisture, etc.). Make sure your shoes fit properly. If you have neuropathy (nerve damage), you may not notice that your shoes are too tight. Perform the footwear test described below. Footwear Test Use this simple test to see if your shoes fit correctly: Stand on a piece of paper. (Make sure you are standing and not sitting, because your foot changes shape when you stand.) Trace the outline of your foot. Trace the outline of your shoe. Compare the tracings: Is the shoe too narrow? Is your foot crammed into the shoe? The shoe should be at least 1/2 inch longer than your longest toe and as wide as your foot. Proper Shoe Choices The following types of shoes are best for people with diabetes Closed toes and heels Leather uppers without a seam inside At least 1/2 inch extra space at the end of your longest toe Inside of shoe should be soft with no rough areas Outer sole should be made of stiff material Shoes should be at least as wide as your feet Tips for Foot Care in Diabetes Don't wait to treat a minor foot problem if you have diabetes. Follow your health care provider's guidelines and first aid guidelines. Report foot injuries and infections to your health care provider immediately. Check water temperature with your elbow, not your foot. Do not use a heating pad on your feet. Do not cross your legs. Do not self-treat your corns, calluses, or other foot problems. Go to your health care provider or enrollment management vice president to treat these conditions. documented in this encounter [facility] 09-25-2022 Miscellaneous Notes Patient notified. Voices understanding. Rebecca Esteban LPN INR therapeutic. Continue current coumadin dosage and follow up in 4 weeks. Last INR: PT INR 2.5 09/24/2022 Current dose of coumadin is: 10mg M & W, 7.5mg all other days. Last date of dose change: unknown. Previous INR (date and result): 08/27/2022 3.3 Additional Clinical Information or narrative: no documented in this encounter [facility] 09-07-2022 Note HNO ID: [id number] Author: Tamie Kaur MD Service: ? Author Type: Physician Type: Progress Notes Filed: 09/07/2022 5:02 PM Note Text: NEUROLOGY follow up note Interval history April 17, 2022 Accompanied by Tests results reviewed including mri dany and EEG NO confusion episodes No falls Positive romberg ,imbalance due to polyneuropathy. No loss of consciousness or falling Doing well ,stable clinically ,no new symptoms Refused antidepressant or psych medication Today he is asking about driving as his wanted him to drive ASSESSMENT: 76 year old male with baseline mental status and no recurrent episodes of confusion But denies depression PLAN: ---> work up for other causes of confusion and syncopal episode, done and discussed with patient Patient had no evidence of seizure Had no recurrent episodes of loss of consciousness or altered consciousness For driving safety precautions we talked about driving test Order written ---> Follow-up: 1-2 months, Tests results will be discussed in the follow up appointment Medications side effects explained and discussed with the patient . CC: Episode of mental status samir HxCC: 76 year old male , who presents for evaluation of folllow up after hospitalization in [facility]. he was admitted because of syncopal episode , found him ,poorly responsive ,confused Doesn't remember being taken by squad to the hospital. Was confuseed in the hospital and balance was off Since he has been discharged and is back To baseline mental status according to the who accompanied him today. He likes to stay at home and not interested in going out ,or socialize with others Since covid hit they [place] [facility] and was staying in the house by himself , Has been like that for years since the pandemic ,possibly before He has a cane at home but not using it , He didn't think he needed Chronic back pain ,diabetes hypertension and hyperlipidemia ,as vascular risk factors Had stroke work up and MRI Brain in the hospital with no acute lesion or atrophy or hydrocephalus On further neurologic questioning, the patient denies new headaches, neck or back pain.no dysphonia or dysphagia. No saddle anesthesia. No muscular atrophy or fasciculations. RECENT LABS: WBC (k/uL) Date Value 08/13/2022 12.15 (H) RBC (m/uL) Date Value 08/13/2022 5.26 Hemoglobin (g/dL) Date Value 08/13/2022 14.3 Hematocrit (%) Date Value 08/13/2022 43.9 MCV (fL) Date Value 08/13/2022 83.5 MCH (pg) Date Value 08/13/2022 27.2 MCHC (g/dL) Date Value 08/13/2022 32.6 RDW-CV (%) Date Value 08/13/2022 14.6 Platelet Count (k/uL) Date Value 08/13/2022 306 MPV (fL) Date Value 08/13/2022 9.8 Last BMP (Basic Metabolic Panel) Lab Results Component Value Date NA 138 01/01/2022 NA 141 08/30/2021 Lab Results Component Value Date K 4.4 01/01/2022 K 5.0 08/30/2021 Lab Results Component Value Date CHLOR 101 01/01/2022 CHLOR 102 08/30/2021 Lab Results Component Value Date CO2 25 01/01/2022 CO2 26 08/30/2021 Lab Results Component Value Date BUN 15 01/01/2022 BUN 19 08/30/2021 Lab Results Component Value Date CREAT 1.20 01/01/2022 CREAT 1.25 08/30/2021 Lab Results Component Value Date GLUC 118 01/01/2022 GLUC 223 08/30/2021 Lab Results Component Value Date ANION 12 01/01/2022 ANION 13 08/30/2021 Lab Results Component Value Date CA 9.4 01/01/2022 CA 9.9 08/30/2021 TSH Date Value Ref Range Status 09/23/2013 1.590 0.400 - 5.500 uU/mL Final B12: RECENT IMAGING/DIAGNOSTICS: --MRI/MRA/MRV Brain w/wocontrast (/: --MRI Cervical Spine w/wocontrast (/: --EEG (/: This EEG is suggestive of cerebral dysfunction in the left temporal region. No epileptiform discharges or EEG seizures were seen during this recording. PMH: PAST MEDICAL HISTORY Diagnosis Date BPH (benign prostatic hyperplasia) Cholelithiasis 09/25/2013 Chronic neutrophilia Benign-Dr. 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 ([facility]) 05/25/2018 History of transfusion Hyperlipidemia LDL goal < 100 04/01/2012 NSTEMI (non-ST elevated myocardial infarction) ([facility]) Pulmonary embolus, right ([facility]) 09/25/2013 Status post aortic valve repair 2004 Thoracic aneurysm without mention of rupture Type 2 diabetes mellitus with stage 3 chronic kidney disease, with long-term current use of insulin ([facility]) 06/20/2016 Vitamin D deficiency 01/03/2022 PSH: PAST SURGICAL HISTORY Procedure Laterality Date ABDOMINAL SURGERY HX AMPUTATION METATARSAL+TOE,SINGLE Right 05/25/2018 (more content not included)... [facility] 09-07-2022 Miscellaneous Notes Call to patient. Provided number to schedule- [phone]. Offered to transfer patient to schedule but patient declined to schedule stating he could call later. PAOLA Potter, RN September 07, 2022 1:11 PM Suzanne please let patient know how to proceed with driving evaluation I already put the order in computer documented in this encounter [facility] 09-07-2022 History of Presen t illness Narrative Images from the original note were not included. NEUROLOGY follow up note Interval history April 17, 2022 Accompanied by Tests results reviewed including mri dany and EEG NO confusion episodes No falls Positive romberg ,imbalance due to polyneuropathy. No loss of consciousness or falling Doing well ,stable clinically ,no new symptoms Refused antidepressant or psych medication Today he is asking about driving as his wanted him to drive ASSESSMENT: 76 year old male with baseline mental status and no recurrent episodes of confusion But denies depression PLAN: ---> work up for other causes of confusion and syncopal episode, done and discussed with patient Patient had no evidence of seizure Had no recurrent episodes of loss of consciousness or altered consciousness For driving safety precautions we talked about driving test Order written ---> Follow-up: 1-2 months, Tests results will be discussed in the follow up appointment Medications side effects explained and discussed with the patient . CC: Episode of mental status samir HxCC: 76 year old male , who presents for evaluation of folllow up after hospitalization in [facility]. he was admitted because of syncopal episode , found him ,poorly responsive ,confused Doesn't remember being taken by squad to the hospital. Was confuseed in the hospital and balance was off Since he has been discharged and is back To baseline mental status according to the who accompanied him today. He likes to stay at home and not interested in going out ,or socialize with others Since covid hit they went [place] [facility] [place] and was staying in the house by himself , Has been like that for years since the pandemic ,possibly before He has a cane at home but not using it , He didn't think he needed Chronic back pain ,diabetes hypertension and hyperlipidemia ,as vascular risk factors Had stroke work up and MRI Brain in the hospital with no acute lesion or atrophy or hydrocephalus On further neurologic questioning, the patient denies new headaches, neck or back pain.no dysphonia or dysphagia. No saddle anesthesia. No muscular atrophy or fasciculations. RECENT LABS: WBC (k/uL) Date Value 08/13/2022 12.15 (H) RBC (m/uL) Date Value 08/13/2022 5.26 Hemoglobin (g/dL) Date Value 08/13/2022 14.3 Hematocrit (%) Date Value 08/13/2022 43.9 MCV (fL) Date Value 08/13/2022 83.5 MCH (pg) Date Value 08/13/2022 27.2 MCHC (g/dL) Date Value 08/13/2022 32.6 RDW-CV (%) Date Value 08/13/2022 14.6 Platelet Count (k/uL) Date Value 08/13/2022 306 MPV (fL) Date Value 08/13/2022 9.8 Last BMP (Basic Metabolic Panel) Lab Results Component Value Date NA 138 01/01/2022 NA 141 08/30/2021 Lab Results Component Value Date K 4.4 01/01/2022 K 5.0 08/30/2021 Lab Results Component Value Date CHLOR 101 01/01/2022 CHLOR 102 08/30/2021 Lab Results Component Value Date CO2 25 01/01/2022 CO2 26 08/30/2021 Lab Results Component Value Date BUN 15 01/01/2022 BUN 19 08/30/2021 Lab Results Component Value Date CREAT 1.20 01/01/2022 CREAT 1.25 08/30/2021 Lab Results Component Value Date GLUC 118 01/01/2022 GLUC 223 08/30/2021 Lab Results Component Value Date ANION 12 01/01/2022 ANION 13 08/30/2021 Lab Results Component Value Date CA 9.4 01/01/2022 CA 9.9 08/30/2021 TSH Date Value Ref Range Status 09/23/2013 1.590 0.400 - 5.500 uU/mL Final B12: RECENT IMAGING/DIAGNOSTICS: --MRI/MRA/MRV Brain w/wocontrast (/: --MRI Cervical Spine w/wocontrast (/: --EEG (/: This EEG is suggestive of cerebral dysfunction in the left temporal region. No epileptiform discharges or EEG seizures were seen during this recording. PMH: PAST MEDICAL HISTORY Diagnosis Date BPH (benign prostatic hyperplasia) Cholelithiasis 09/25/2013 Chronic neutrophilia Benign-Dr. 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 ([facility]) 05/25/2018 History of transfusion Hyperlipidemia LDL goal < 100 04/01/2012 NSTEMI (non-ST elevated myocardial infarction) ([facility]) Pulmonary embolus, right ([facility]) 09/25/2013 Status post aortic valve repair 2005 Thoracic aneurysm without mention of rupture Type 2 diabetes mellitus with stage 3 chronic kidney disease, with long-term current use of insulin ([facility]) 06/20/2016 Vitamin D deficiency 01/03/2022 PSH: PAST SURGICAL HISTORY Procedure Laterality Date ABDOMINAL SURGERY HX AMPUTATION METATARSAL+TOE,SINGLE Right 05/25/2018 with delayed closure on 05/28/18. Dr. Obregon at [facility] COLONOSCOPY 10/10/2021 repeat in 3 years COLONOSCOPY FLX DX W/COLLJ SPEC WHEN PFRMD 03/12/2011 DEBRIDEMENT OF SKIN, FULL THIC 09/12/2010 LEFT GROIN DEBRIDEMENT OPEN WOUND 20 SQ CM/< 11/22/2010 Debridement posterior neck/I&D LLQ abd DEBRIDEMENT SUBCUTANEOUS TISSUE 20 SQ CM/< 09/11/2010 LEFT GROIN ESOPHAGOGASTRODUODENOSCOPY TRANSORAL DIAGNOSTIC 01/11/2019 EGD HEART SURGERY HX INCISION & DRAINAGE ABSCESS SIMPLE/SINGLE 09/08/2010 I&D abscess left groin INCISION & DRAINAGE ABSCESS SIMPLE/SINGLE 10/23/2010 I&D medial to left groin wound INCISION & DRAINAGE ABSCESS SIMPLE/SINGLE 01/22/2011 I&D LLQ superficial abscess REM LESION TRUNK,ARM, LEG <0.5 CM 03/21/2011 Exc. fibroepithelial polyp LLQ abd REVISION OF AORTIC VALVE 2004 Repair of Aortic Value/Thoracic anerusym repair SKIN BIOPSY HX CURRENT MEDS: Current Facility-Administered Medications Medication Dose Route Frequency perflutren lipid microspheres 1.3 mL in NaCl (PF) 0.9% 10 mL injection (DEFINITY) INTRAVENOUS DIRECTED PRN sodium chloride 0.9 % (flush) 10 mL (BD POSIFLUSH) 10 mL INTRAVENOUS DIRECTED PRN perflutren lipid microspheres 1.3 mL in NaCl (PF) 0.9% 10 mL injection (DEFINITY) INTRAVENOUS DIRECTED PRN sodium chloride 0.9 % (flush) 10 mL (BD POSIFLUSH) 10 mL INTRAVENOUS DIRECTED PRN Current Outpatient Medications Medication Sig insulin aspart U-100 (NOVOLOG FLEXPEN U-100 INSULIN) 100 unit/mL (3 mL) Inject with meals according to sliding scale: 100-200=3 units, 201-250=5 units, 251-300=8 units, 301-350=12 units, 351-400=15 units. Max dose per meal, 15 units. Max dose per day: 45 units. fluticasone (FLONASE) 50 mcg/actuation nasal spray Use 2 Sprays in each nostril once daily. Rinse mouth after use. warfarin (COUMADIN) 5 mg tablet 10 mg Saturday and Saturday, 7.5 mg all other days or as directed. losartan (COZAAR) 50 mg tablet Take 1 tablet by mouth once daily. metoprolol succinate ER (TOPROL XL) 200 mg 24 hr tablet Take 1 tablet by mouth once daily. tamsulosin (FLOMAX) 0.4 mg Take 1 capsule by mouth daily at bedtime. amLODIPine (NORVASC) 2.5 mg tablet Take 1 tablet by mouth once daily. insulin glargine (LANTUS SOLOSTAR U-100 INSULIN) 100 unit/mL (3 mL) Inject 12 Units subcutaneously daily at bedtime. dulaglutide (TRULICITY) 1.5 mg/0.5 mL pen injector Inject 1.5 mg subcutaneously one time a week. Inject once per week. Discard Pen After metFORMIN ER (GLUCOPHAGE XR) 500 mg 24 hr tablet Take 2 tablets by mouth twice daily with meals. atorvastatin (LIPITOR) 40 mg tablet Take 1 tablet by mouth once daily. For cholesterol. insulin needles, DISPOSABLE, (BD INSULIN PEN NEEDLE UF) 31 gauge x 5/16 1 Each four times daily. With insulin B cmplx 4/vit D3/C/folic/zinc (VITAL-D RX ORAL) Take by mouth one time a week. blood sugar diagnostic ([employer] ULTRA TEST) test strip Test blood sugar(s) 3 times daily. Dx: E11.49. Insulin: Yes Current Facility-Administered Medications Medication Dose Route Frequency perflutren lipid microspheres 1.3 mL in NaCl (PF) 0.9% 10 mL injection (DEFINITY) INTRAVENOUS DIRECTED PRN sodium chloride 0.9 % (flush) 10 mL (BD POSIFLUSH) 10 mL INTRAVENOUS DIRECTED PRN perflutren lipid microspheres 1.3 mL in NaCl (PF) 0.9% 10 mL injection (DEFINITY) INTRAVENOUS DIRECTED PRN sodium chloride 0.9 % (flush) 10 mL (BD POSIFLUSH) 10 mL INTRAVENOUS DIRECTED PRN ALLERGIES: ALLERGIES Allergen Reactions Pantoprazole Diarrhea FMH: FAMILY HISTORY Problem Relation Age of Onset No Known Problems Mother Heart Father Bypass and valve replaced Breast Cancer Sister No Known Problems Brother No Known Problems Son No Known Problems Son SOCIAL: Social History Tobacco Use Smoking status: Never Smokeless tobacco: Never Vaping Use Vaping Use: Never used Substance Use Topics Alcohol use: No Drug use: No REVIEW OF SYSTEMS (In addition to HPI): PHYSICAL EXAM: BP 124/57 (BP Site: Right Arm, BP Position: Sitting, BP Cuff Size: Large Adult) Pulse 64 Resp 16 Ht 185.4 cm (6' 1 ) Wt 113.4 kg (250 lb) SpO2 99% BMI 32.98 kg/m GEN: Alert. NAD. Normal affect. Cooperative. HEENT: No icterus. Normal mucosa. No temporal artery tenderness. Fundoscopic exam unremarkable. NECK/BACK: No meningismus. No lymphadenopathy. No significant paraspinal neck or shoulder musculature tenderness or hypertonicity. No spinous process tenderness. CV: RRR. No M/G/R/C. No carotid bruits. RESP: CTA b/l. EXT: No cyanosis. No edema. No erythema. SKIN: No rashes. No lesions. NEUROLOGICAL: MENTAL STATUS: Awake alert oriented to his name and his age Oriented to day month and disoriented to the year But corrected himself and said 2021 3 words recall ,out of 3 93,86,79,72,65 Recall of 3 words out of 3 Copying repetition naming all good Scored 30/30 in MMSE Did the clock test perfectly fine CN: II: Visual barber intact. PERRLA. No Papilledema. III, IV, : EOMI. No ptosis present. Normal saccades. V: Symmetric facial sensation to PP. VII: Face symmetric. VIII: Hearing symmetric. No nystagmus. IX, X: Symmetric palatal rise. XI: Symmetric shoulder shrug. XII: Tongue midline with symmetric movements. MOTOR: Finger tap normal. No involuntary movement seen during today's exam. Normal tone and strength. No arm drift REFLEXES: Plantar response flexor b/l. No clonus. Negative Chris/Troemner. Negative palmomental, grasp, rooting, snouting and glabellar blink reflexes. SENSATION: PP, Proprioception, Vibration decreased and positive Romberg. CEREBELLAR: Normal F-N-F. Normal H-S. No dysmetria. No nystagmus. GAIT: Wide based gait ,unsteady Cannot tandem Tamie Kaur M.D. [facility] Neurological [place] Department of Neurology Total time in minutes spent with patient, reviewing records, labs, imaging, formulating plan, and documentin minutes with more than 50% of the time spent in patient education/counselling/coordinati ng care with the patient and /or family. I have discussed with the patient how to reduce likelihood of falling in home by removing throw rugs, loose wires or other objects from floor, installing hand-rails and leaving lights on at night. documented in this encounter [facility] 08-28-2022 Miscellaneous Notes Phoned patient and updated him with provider's message. Patient voiced understanding. INR therapeutic. Continue current coumadin dosage and follow up in 4 weeks. Last INR: PT INR 3.3 08/27/2022 Current dose of coumadin is: 10 mg M&W, 7.5 mg other days. Last date of dose change: unknown. Previous INR (date and result): 08/13/22- 2.7 Additional Clinical Information or narrative: debra Heller LPN documented in this encounter [facility] 08-16-2022 Miscellaneous Notes Patient has been identified by name and date of : Yes Requested Prescriptions Pending Prescriptions Disp Refills fluticasone (FLONASE) 50 mcg/actuation nasal spray 1 Each 1 Sig: Use 2 Sprays in each nostril once daily. Rinse mouth after use. Patient is out of the medication RX INSTRUCTIONS: Patient aware RX will be sent to pharmacy. No need to notify patient. Grecia Bustillo documented in this encounter [facility] 08-14-2022 Miscellaneous Notes Phoned patient and updated him with results and recommendations. Patient voiced understanding. Continue same dose, recheck INR 2 weeks Js Ashby DO Last INR: PT INR 2.7 08/13/2022 Current dose of coumadin is: 10mg mon & wed, 7.5mg all other days. Last date of dose change: unknown. Previous INR (date and result): 3.4 07/30/2022 Additional Clinical Information or narrative: no documented in this encounter [facility] 08-09-2022 Note HNO ID: [id number] Author: Abdulaziz Caldera MD Service: ? Author Type: Physician Type: Progress Notes Filed: 08/09/2022 5:05 PM Note Text: Chief Complaint Patient presents with: Follow Up: 4 week DM HPI Richard Roy is a 76 year old male who presents here today for Above Complaints. DIABETES MELLITUS: Mr. Roy was last seen 5 months ago. Patient's Lantus insulin was reduced while inpatient for NSTEMI last month. Since our last visit he denies excessive thirst or increased frequency of urination, numbness, tingling or pain in extremities, new or unusual visual symptoms, and low sugar/hypoglycemic reactions. Follows a diabetic diet most of the time. He is compliant with medication(s) and is tolerating med(s) without any side effects. He reports checking his glucose on a four times a day schedule with sugars in the<150 range. Fasting usually <130. Patient's last HgA1C was Hemoglobin A1C (%) Date Value 03/02/2022 6.4 08/30/2021 6.2 03/01/2021 6.5 ) Last Ophthalmology exam was more than 12 months ago. Going to schedule appointment [facility]. 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 Asymtpomatic still on medical management. Has completed his home PT/OT. Echo and stress test at [facility] were negative/normal. Has follow up with Dr. Garcia on 12/03. questioning if they should be seen sooner. BP well controlled with current regimen <130/80. BPH: With use of flomax, patient is getting up once at night to urinate. Has weak stream, but denies straining, incomplete emptying, dysuria, hematuria, incontinence. Followed up with ENT in [place] for chronic frontal sinusitis on CT/MRI going back to February. Told this did not require treatment. F/u PRN. Denies sinus pressure/pain/congestion. Past medical history, appointments, medications, allergies reviewed. Previous Medical History PAST MEDICAL HISTORY Diagnosis Date BPH (benign prostatic hyperplasia) Cholelithiasis 09/25/2013 Chronic neutrophilia Benign-Dr. 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 Dr. Obregon at [facility] COLONOSCOPY 10/10/2021 repeat in 3 years COLONOSCOPY FLX DX W/COLLJ SPEC WHEN PFRMD 03/12/2011 DEBRIDEMENT OF SKIN, FULL THIC 09/12/2010 LEFT GROIN DEBRIDEMENT OPEN WOUND 20 SQ CM/< 11/22/2010 Debridement posterior neck/IANDD LLQ abd DEBRIDEMENT SUBCUTANEOUS TISSUE 20 SQ CM/< 09/11/2010 LEFT GROIN ESOPHAGOGASTRODUODENOSCOPY TRANSORAL DIAGNOSTIC 01/11/2019 EGD HEART SURGERY HX INCISION AND DRAINAGE ABSCESS SIMPLE/SINGLE 09/08/2010 IANDD abscess left groin INCISION AND DRAINAGE ABSCESS SIMPLE/SINGLE 10/23/2010 IANDD medial to left groin wound INCISION AND DRAINAGE ABSCESS SIMPLE/SINGLE 01/22/2011 IANDD LLQ superficial abscess REM LESION TRUNK,ARM, LEG <0.5 CM 03/21/2011 Exc. fibroepithelial polyp LLQ abd REVISION OF AORTIC VALVE 2005 Repair of Aortic Value/Thoracic anerusym repair SKIN BIOPSY HX Family History FAMILY HISTORY Problem Relation Age of Onset No Known Problems Mother Heart Father Bypass and valve replaced Breast Cancer Sister No Known Problems Brother No Known Problems Son No Known Problems Son Patient Allergies ALLERGIES Allergen Reactions Pantoprazole Diarrhea Current Medications Current Outpatient Medications on File Prior to Visit Medication Sig amLODIPine (NORVASC) 2.5 mg tablet Take 1 tablet by mouth once daily. insulin glargine (LANTUS SOLOSTAR U-100 INSULIN) 100 unit/mL (3 mL) Inject 12 Units subcutaneously daily at bedtime. fluticasone (FLONASE) 50 mcg/actuation nasal spray Use 2 Sprays in each nostril once daily. Rinse mouth after use. dulaglutide (TRULICITY) 1.5 mg/0.5 mL pen injector Inject 1.5 mg subcutaneously one time a week. Inject once per week. Discard Pen After tamsulosin (FLOMAX) 0.4 mg Take 1 capsule by mouth daily at bedtime. metFORMIN ER (GLUCOPHAGE XR) 500 mg 24 hr tablet Take 2 tablets by mouth twice daily with meals. atorvastatin (LIPITOR) 40 mg tablet Take 1 tablet by mouth once daily. For cholesterol. (more content not included)... [facility] 08-09-2022 History of Presen t illness Narrative Chief Complaint Patient presents with: Follow Up: 4 week DM HPI Richard Roy is a 76 year old male who presents here today for Above Complaints. DIABETES MELLITUS: Mr. Roy was last seen 5 months ago. Patient's Lantus insulin was reduced while inpatient for NSTEMI last month. Since our last visit he denies excessive thirst or increased frequency of urination, numbness, tingling or pain in extremities, new or unusual visual symptoms, and low sugar/hypoglycemic reactions. Follows a diabetic diet most of the time. He is compliant with medication(s) and is tolerating med(s) without any side effects. He reports checking his glucose on a four times a day schedule with sugars in the<150 range. Fasting usually <130. Patient's last HgA1C was Hemoglobin A1C (%) Date Value 03/02/2022 6.4 08/30/2021 6.2 03/01/2021 6.5 ) Last Ophthalmology exam was more than 12 months ago. Going to schedule appointment [facility]. 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 Asymtpomatic still on medical management. Has completed his home PT/OT. Echo and stress test at [facility] were negative/normal. Has follow up with Dr. Garcia on 12/03. questioning if they should be seen sooner. BP well controlled with current regimen <130/80. BPH: With use of flomax, patient is getting up once at night to urinate. Has weak stream, but denies straining, incomplete emptying, dysuria, hematuria, incontinence. Followed up with ENT in [place] for chronic frontal sinusitis on CT/MRI going back to February. Told this did not require treatment. F/u PRN. Denies sinus pressure/pain/congestion. Past medical history, appointments, medications, allergies reviewed. Previous Medical History PAST MEDICAL HISTORY Diagnosis Date BPH (benign prostatic hyperplasia) Cholelithiasis 09/25/2013 Chronic neutrophilia Benign-Dr. 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 Dr. Obregon at [facility] COLONOSCOPY 10/10/2021 repeat in 3 years COLONOSCOPY FLX DX W/COLLJ SPEC WHEN PFRMD 03/12/2011 DEBRIDEMENT OF SKIN, FULL THIC 09/12/2010 LEFT GROIN DEBRIDEMENT OPEN WOUND 20 SQ CM/< 11/22/2010 Debridement posterior neck/I&D LLQ abd DEBRIDEMENT SUBCUTANEOUS TISSUE 20 SQ CM/< 09/11/2010 LEFT GROIN ESOPHAGOGASTRODUODENOSCOPY TRANSORAL DIAGNOSTIC 01/11/2019 EGD HEART SURGERY HX INCISION & DRAINAGE ABSCESS SIMPLE/SINGLE 09/08/2010 I&D abscess left groin INCISION & DRAINAGE ABSCESS SIMPLE/SINGLE 10/23/2010 I&D medial to left groin wound INCISION & DRAINAGE ABSCESS SIMPLE/SINGLE 01/22/2011 I&D LLQ superficial abscess REM LESION TRUNK,ARM, LEG <0.5 CM 03/21/2011 Exc. fibroepithelial polyp LLQ abd REVISION OF AORTIC VALVE 2004 Repair of Aortic Value/Thoracic anerusym repair SKIN BIOPSY HX Family History FAMILY HISTORY Problem Relation Age of Onset No Known Problems Mother Heart Father Bypass and valve replaced Breast Cancer Sister No Known Problems Brother No Known Problems Son No Known Problems Son Patient Allergies ALLERGIES Allergen Reactions Pantoprazole Diarrhea Current Medications Current Outpatient Medications on File Prior to Visit Medication Sig amLODIPine (NORVASC) 2.5 mg tablet Take 1 tablet by mouth once daily. insulin glargine (LANTUS SOLOSTAR U-100 INSULIN) 100 unit/mL (3 mL) Inject 12 Units subcutaneously daily at bedtime. fluticasone (FLONASE) 50 mcg/actuation nasal spray Use 2 Sprays in each nostril once daily. Rinse mouth after use. dulaglutide (TRULICITY) 1.5 mg/0.5 mL pen injector Inject 1.5 mg subcutaneously one time a week. Inject once per week. Discard Pen After tamsulosin (FLOMAX) 0.4 mg Take 1 capsule by mouth daily at bedtime. metFORMIN ER (GLUCOPHAGE XR) 500 mg 24 hr tablet Take 2 tablets by mouth twice daily with meals. atorvastatin (LIPITOR) 40 mg tablet Take 1 tablet by mouth once daily. For cholesterol. warfarin (COUMADIN) 5 mg tablet 10 mg Saturday and Saturday, 7.5 mg all other days or as directed. insulin needles, DISPOSABLE, (BD INSULIN PEN NEEDLE UF) 31 gauge x 5/16 1 Each four times daily. With insulin losartan (COZAAR) 50 mg tablet Take 1 tablet by mouth once daily. B cmplx 4/vit D3/C/folic/zinc (VITAL-D RX ORAL) Take by mouth one time a week. metoprolol succinate ER (TOPROL XL) 200 mg 24 hr tablet Take 1 tablet by mouth once daily. blood sugar diagnostic ([employer] ULTRA TEST) test strip Test blood sugar(s) 3 times daily. Dx: E11.49. Insulin: Yes Docusate Sodium 100 mg tab Take 100 mg by mouth once daily. insulin aspart U-100 ([employer]OLOG FLEXPEN U-100 INSULIN) 100 unit/mL (3 mL) Inject with meals according to sliding scale: 100-200=3 units, 201-250=5 units, 251-300=8 units, 301-350=12 units, 351-400=15 units. Current Facility-Administered Medications on File Prior to Visit Medication perflutren lipid microspheres 1.3 mL in NaCl (PF) 0.9% 10 mL injection (DEFINITY) sodium chloride 0.9 % (flush) 10 mL (BD POSIFLUSH) perflutren lipid microspheres 1.3 mL in NaCl (PF) 0.9% 10 mL injection (DEFINITY) sodium chloride 0.9 % (flush) 10 mL (BD POSIFLUSH) Social History Social History Tobacco Use Smoking status: Never Smokeless tobacco: Never Vaping Use Vaping Use: Never used Substance Use Topics Alcohol use: No Drug use: No Review of Symptoms REVIEW OF SYSTEMS GENERAL: No weight loss, malaise or fevers RESPIRATORY: Negative for cough, hemoptysis, wheezing, COPD, dyspnea or shortness of breath CARDIOVASCULAR: Negative for chest pain, leg swelling, hypertension, CHF or palpitations GI: No nausea, vomiting, or diarrhea SKIN: Negative for lesions, rash, and itching EXAM: BP 112/62 Pulse 64 Resp 16 Wt 113.4 kg (250 lb) SpO2 96% BMI 32.98 kg/m General Appearance: Well appearing, alert, in no acute distress, well-hydrated, well nourished.. Skin: Skin color, texture, turgor normal, no suspicious rashes or lesions. Lungs: Lungs clear to auscultation. No wheezing, rhonchi, rales.. Heart: RRR without murmur, gallop, or rubs. No ectopy. Abdomen: Normal abdominal exam, Abdomen soft, non-tender. Bowel sounds normal. No masses, organomegaly. Extremities: No deformities, edema, skin discoloration, clubbing or cyanosis. Good capillary refill. . Health Maintenance List DTAP,TDAP,TD(3 - Td or Tdap) due on 12/25/2020 DILATED RETINAL EXAM due on 02/20/2022 ADVANCE DIRECTIVE DISCUSSION Never done DEPRESSION ASSESSMENT Never done HBA1C due on 09/02/2022 LDL CHOLESTEROL due on 01/01/2023 URINE ALBUMIN:CREATININE RATIO due on 03/02/2023 SERUM CREATININE due on 03/07/2023 DIABETIC FOOT EXAM due on 03/30/2023 ANNUAL PCP TEAM CHRONIC DISEASE VISIT due on 07/12/2023 BP CONTROLLED (<130/80) due on 07/12/2023 COLORECTAL CANCER SCREENING due on 10/10/2024 INFLUENZA Completed HEPATITIS C SCREENING Completed SHINGRIX VACCINE Completed COVID-19 VACCINE Completed PNEUMOCOCCAL: 65+ Completed Data reviewed Component Latest Ref Rng & Units 01/01/2022 03/02/2022 03/07/2022 WBC 3.70 - 11.00 k/uL 12.47 (H) RBC 4.20 - 6.00 m/uL 5.46 Hemoglobin 13.0 - 17.0 g/dL 14.5 Hematocrit 39.0 - 51.0 % 46.6 MCV 80.0 - 100.0 fL 85.3 MCH 26.0 - 34.0 pg 26.6 MCHC 30.5 - 36.0 g/dL 31.1 RDW-CV 11.5 - 15.0 % 14.5 Platelet Count 150 - 400 k/uL 287 MPV 9.0 - 12.7 fL 9.7 Neut% % 73.8 Abs Neut (ANC) 1.45 - 7.50 k/uL 9.20 (H) Lymph% % 14.5 Abs Lymph 1.00 - 4.00 k/uL 1.81 [place]% % 6.9 Abs [place] <0.87 k/uL 0.86 Eosin% % 3.1 Abs Eosin <0.46 k/uL 0.39 Baso% % 0.5 Abs Baso <0.11 k/uL 0.06 Immature Gran % % 1.2 IMMATURE GRANS (ABS) <0.10 k/uL 0.15 (H) NRBC /100 WBC 0.0 Absolute nRBC <0.01 k/uL <0.01 DTYPE Auto Protein, Total 6.3 - 8.0 g/dL 6.6 6.7 Albumin 3.9 - 4.9 g/dL 4.2 4.3 Calcium 8.5 - 10.2 mg/dL 9.4 9.5 Bilirubin, Total 0.2 - 1.3 mg/dL 0.6 0.5 Alkaline Phosphatase 38 - 113 U/L 96 106 AST 14 - 40 U/L 20 14 ALT 10 - 54 U/L 29 17 Glucose 74 - 99 mg/dL 118 (H) 125 (H) BUN 9 - 24 mg/dL 15 16 Creatinine 0.73 - 1.22 mg/dL 1.20 1.19 Sodium 136 - 144 mmol/L 138 138 Potassium 3.7 - 5.1 mmol/L 4.4 5.0 Chloride 97 - 105 mmol/L 101 101 CO2 22 - 30 mmol/L 25 26 Anion Gap 9 - 18 mmol/L 12 11 eGFR >=60 mL/min/1.73m 63 64 Cholesterol, Total <200 mg/dL 118 Triglyceride <150 mg/dL 141 HDL Cholesterol >39 mg/dL 35 (L) Non HDL Cholesterol <130 mg/dL 83 Fasting Time hrs 12 VLDL Cholesterol <30 mg/dL 28 TC:HDL Ratio <5.10 3.37 LDL Cholesterol <100 mg/dL 55 LDL:HDL Ratio <2.54 1.57 Creatinine, Ur Random (UCRR) 20.0 - 300.0 mg/dL 161.8 Albumin, Urine Random mg/L 23.8 Albumin/Creat Ratio <30 mg/g 15 Hemoglobin A1C 4.3 - 5.6 % 6.4 (H) Estimated Average Glucose mg/dL 137 Vitamin D 25 Hydroxy 31.0 - 80.0 ng/mL 14.4 (L) 34.2 Vitamin B12 232-1,245 pg/mL 377 PSA Screening <2.60 ng/mL 1.75 ASSESSMENT/PLAN: 1. Type 2 diabetes mellitus with diabetic neuropathy, with long-term current use of insulin ([facility]) - ICD9: 250.60, 357.2, V58.67, ICD10: E11.40, Z79.4 (primary diagnosis) improved control - Continue current medications - Blood glucose monitoring on a four times a day schedule - Encouraged regular aerobic exercise and weight loss - Follow up in 6 months, sooner should any other issues arise. - Discussed diabetic education issues of halfway diabetic complications, hypoglycemic symptoms, hyperglycemic symptoms, diet, medications- side effects and need for compliance, importance of exercise, use and side effects of insulin, and importance of annual examinations with Opthalmology with patient. - HGB A1C - COMP METABOLIC PANEL - INSULIN ASPART (U-100) 100 UNIT/ML (3 ML) SUBCUTANEOUS PEN - CBC + DIFF 2. Diabetic polyneuropathy associated with type 2 diabetes mellitus ([facility]) - ICD9: 250.60, 357.2, ICD10: E11.42 Controlled on current regimen. 3. NSTEMI (non-ST elevated myocardial infarction) ([facility]) - ICD9: 410.70, ICD10: I21.4 Patient asymptomatic on current regimen. Will reach out to Dr. Garcia's office about follow up as requested. 4. Essential hypertension, benign - ICD9: 401.1, ICD10: I10 - good control - Continue current medication(s) - Encouraged dietary sodium restriction/DASH diet - Recommended regular aerobic exercise. - Reviewed risks of HTN and principles of treatment - Goal of BP <130/80 - METOPROLOL SUCCINATE ER 200 MG TABLET,EXTENDED RELEASE 24 HR 5. Hyperlipidemia with target LDL less than 100 - ICD9: 272.4, ICD10: E78.5 - good control - Continue current medication. - Encouraged following a low fat, low cholesterol diet. - Discussed the benefits of regular aerobic exercise and weight loss. 6. Status post aortic valve repair - ICD9: V45.89, ICD10: Z98.890 INR therapeutic on last check. Patient aware of importance of regular checks. No bleeding/bruising. Taking coumadin as prescribed. - WARFARIN 5 MG TABLET 7. Chronic anticoagulation - ICD9: V58.61, ICD10: Z79.01 - WARFARIN 5 MG TABLET 8. Urinary incontinence, unspecified type - ICD9: 788.30, ICD10: R32 Improved with Flomax. - TAMSULOSIN 0.4 MG CAPSULE - TAMSULOSIN 0.4 MG CAPSULE 9. Benign prostatic hyperplasia with weak urinary stream - ICD9: 600.01, 788.62, ICD10: N40.1, R39.12 Improved with flomax. Continue current reigmen. Abdulaziz Caldera MD documented in this encounter [facility] 08-06-2022 Miscellaneous Notes Phoned patient and updated him with provider's message. Patient voiced understanding. I would not recommend a baby ASA for this patient. Pt called to check on refill on baby aspirin. This is not on med list. Pt asking if he should be taking this. Please advise pt. Mila Castro LPN documented in this encounter [facility] 08-06-2022 Note HNO ID: [id number] Author: Arminda Jaimes MD Service: ? Author Type: Physician Type: Progress Notes Filed: 08/06/2022 11:20 AM Note Text: COSME Roy is a 76 year old male who presents with chronic frontal sinusitis. Patient is seen in consultation for Dr. Caldera. Patient had an episode of either syncope or loss of balance and due to this he had a's CT and MRI which showed some element of chronic sinusitis. Patient has no nasal symptoms or any headaches. Patient does have chronic balance issues and present uses a cane ROS General Weight loss: No Fatigue: No Night sweats:No Cardiac Chest pain:No Fast heart rate:No Swelling in the feet:No Respiratory Short of breath:No Cough:No Wheezing:No Gastrointestinal Nausea:No Vomiting:No Indigestion:No Past medical history, family history, and social history reviewed. PE There were no vitals taken for this visit. General: Patient is awake, alert, NAD. Voice is normal. Skin: normal Eyes: Extraocular motion and Gaze is normal. Ears: Right external auditory canal is normal. TMJ: normal. Right tympanic membranes normal. Left external auditory canal is normal. Left tympanic membrane normal. Nose: Septum is normal. Turbinates are normal. Nasopharynx:normal Oral Cavity/Oropharynx: Lips normal Dentition normal Tongue normal. Tonsils normal. Palate and uvula normal. Pharynx posterior normal Hypopharynx: Base of tongue normal Pyriform sinus normal. Larynx: Vocal cords normal. Epiglottis normal. Post cricoid normal. Salivary glands: Parotid normal. Submandibular and sublingual normal. Thyroid: normal. Lymphatic/Neck: Lymph nodes normal. Neurologic: Facial nerve normal. CT MRI reviewed ASSESSMENT/PLAN: 1. Dizziness - ICD9: 780.4, ICD10: R42 (primary diagnosis) 2. Chronic frontal sinusitis - ICD9: 473.1, ICD10: J32.1 I explained to the patient and his that at this point none of the findings on the CT or MRI require treatment I would see him back as needed. I also explained that did not feel his balance issues was a vestibular problem at this time Arminda Jaimes MD Findings will be communicated to the referring physician via mail or electronic medical record. [facility] 08-06-2022 History of Presen t illness Narrative HPI Richard Roy is a 76 year old male who presents with chronic frontal sinusitis. Patient is seen in consultation for Dr. Caldera. Patient had an episode of either syncope or loss of balance and due to this he had a's CT and MRI which showed some element of chronic sinusitis. Patient has no nasal symptoms or any headaches. Patient does have chronic balance issues and present uses a cane ROS General Weight loss: No Fatigue: No Night sweats:No Cardiac Chest pain:No Fast heart rate:No Swelling in the feet:No Respiratory Short of breath:No Cough:No Wheezing:No Gastrointestinal Nausea:No Vomiting:No Indigestion:No Past medical history, family history, and social history reviewed. PE There were no vitals taken for this visit. General: Patient is awake, alert, NAD. Voice is normal. Skin: normal Eyes: Extraocular motion and Gaze is normal. Ears: Right external auditory canal is normal. TMJ: normal. Right tympanic membranes normal. Left external auditory canal is normal. Left tympanic membrane normal. Nose: Septum is normal. Turbinates are normal. Nasopharynx:normal Oral Cavity/Oropharynx: Lips normal Dentition normal Tongue normal. Tonsils normal. Palate and uvula normal. Pharynx posterior normal Hypopharynx: Base of tongue normal Pyriform sinus normal. Larynx: Vocal cords normal. Epiglottis normal. Post cricoid normal. Salivary glands: Parotid normal. Submandibular and sublingual normal. Thyroid: normal. Lymphatic/Neck: Lymph nodes normal. Neurologic: Facial nerve normal. CT MRI reviewed ASSESSMENT/PLAN: 1. Dizziness - ICD9: 780.4, ICD10: R42 (primary diagnosis) 2. Chronic frontal sinusitis - ICD9: 473.1, ICD10: J32.1 I explained to the patient and his that at this point none of the findings on the CT or MRI require treatment I would see him back as needed. I also explained that did not feel his balance issues was a vestibular problem at this time Arminda Jaimes MD Findings will be communicated to the referring physician via mail or electronic medical record. documented in this encounter [facility] 07-31-2022 Miscellaneous Notes Spoke with patient , Ciarra and informed of therapeutic range INR and that should continue current dose of coumadin and follow up in two weeks. She verbalized understanding. Melba Jones INR therapeutic. Continue current coumadin dosage and follow up in 2 weeks. I discussed importance of compliance with patient at his last OV. Last INR: PT INR 3.4 07/30/2022 Current dose of coumadin is: 10mg Mon & Wed, then 7.5mg all other days. Last date of dose change: Unkown Previous INR (date and result): 2.7 04/03/2022 Additional Clinical Information or narrative: yes: patient seems to be noncompliant with rechecks. Last recheck was supposed to be done in April 2022. Rebecca Esteban LPN documented in this encounter [facility] 07-27-2022 Miscellaneous Notes CloudOpt message not read as of 07/27/2022. Called and spoke with patient. Appt rescheduled to 09/07/2022 at 11:00 AM Meghana Burgess Due to change in provider's schedule, appt on 08/21/2022 needs rescheduled. Patient notified via Cloud[employer] message on 07/05/2022. Meghana Burgess documented in this encounter [facility] 07-26-2022 Miscellaneous Notes Thanks. Darlyn, a nurse with [facility] calling to state she has discharged pt from group home today. Pt is doing really well. No call back needed. Thank you. documented in this encounter [facility] 01-11-2023 Miscellaneous Notes Last Office Visit: 07/12/2022 Future Office Visit: 08/09/2022 Requested Prescriptions Pending Prescriptions Disp Refills amLODIPine (NORVASC) 2.5 mg tablet 30 tablet 5 Sig: Take 1 tablet by mouth once daily. Date of Last Labs: 03/02/2022 documented in this encounter [facility] 07-17-2022 Miscellaneous Notes Reviewed and agree. Maverick PT calling from [facility] to report plan of care for patient and PT will visit patient 2 times a week for 3 weeks. PT will work with patient on functional mobility training. Halima Diaz RN documented in this encounter [facility] 07-17-2022 Miscellaneous Notes Reviewed. Barbi from [facility] calling with OT plan of care, one time visit only, patient denies any further OT needs. No call back needed. documented in this encounter [facility] 07-13-2022 Miscellaneous Notes Left detailed message on confidential line Ewa Andino Ma agree Chiki, a nurse with [facility] calling with [facility] Plan of Care for patient: Patient will be seen 1 time per week for 4 weeks for BP monitoring. No call back needed if provider agreeable. Thank you. documented in this encounter [facility] 07-12-2022 Note HNO ID: [id number] Author: Abdulaziz Caldera MD Service: ? Author Type: Physician Type: Progress Notes Filed: 07/17/2022 8:33 AM Note Text: Chief Complaint Patient presents with: Hospital F/U: Admitted 07/09/22 discharged 07/11/22 HPI Richard Roy is a 76 year old male who presents here today for Hospital Discharge Follow up.. Patient was admitted to [facility] from 07/09 to 07/11 after presenting to the ED after walking out to his storage shed and after being gone for a while his saw him in the snow. Son had to help him to his feet. Confused earlier in the day. In the ED, was found to have elevated troponin and WBC slightly elevated to 13. Admitted and cardiac workup with echo and stress test which were negative. Diagnosed with NSTEMI and cardiology was consulted. For his confusion, MRI of the brain obtained which was negative for stroke, but did note chronic white matter changes and chronic right frontal and maxillary sinusitis which was unchanged from CT in February. His long acting insulin was lowered to 12 units out of concern for hypoglycemia and his sugars were in good range while inpatient. Given amlodipine 2.5 mg daily by cardiology. Discharged home with home PT/OT and recommendation to follow up with our office and oxyacetylene cutter. Since discharge yesterday, patient has been doing well and taking lower dose of insulin and Amlodipine as prescribed. Checked his sugar this morning and thinks it was in the 70s range. Written down at home, but did not bring with him today. Denies hypoglycemia symptoms. BP well controlled with amlodipine. Denies chest pain, SOB, palpitations, LE edema, lightheadedness/dizziness. Seen by Dr. Garcia about 10 days ago and does not have follow up scheduled until November. Needs earlier follow up for NSTEMI. Compliant with ASA, high intensity statin, beta ihsan, ARB. Home health, PT/OT to come out tomorrow. Has been using his cane. No recurrent falls, but does note he is unsteady on his feet without his cane. Does not have walker. INR in the hospital was therapeutic at 3.5. Had not been checked since March. Taking coumadin as prescribed without bleeding or brusiing. Past medical history, appointments, medications, allergies reviewed. Previous Medical History PAST MEDICAL HISTORY Diagnosis Date BPH (benign prostatic hyperplasia) Cholelithiasis 09/25/2013 Chronic neutrophilia Benign-Dr. 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 ([facility]) 05/25/2018 History of transfusion Hyperlipidemia LDL goal < 100 04/01/2012 Pulmonary embolus, right ([facility]) 09/25/2013 Status post aortic valve repair 2004 Thoracic aneurysm without mention of rupture Type 2 diabetes mellitus with stage 3 chronic kidney disease, with long-term current use of insulin ([facility]) 06/20/2016 Vitamin D deficiency 01/03/2022 Previous Surgical History PAST SURGICAL HISTORY Procedure Laterality Date ABDOMINAL SURGERY HX AMPUTATION METATARSAL+TOE,SINGLE Right 05/25/2018 with delayed closure on 05/28/18. Dr. Obregon at [facility] COLONOSCOPY 10/10/2021 repeat in 3 years COLONOSCOPY FLX DX W/COLLJ SPEC WHEN PFRMD 03/12/2011 DEBRIDEMENT OF SKIN, FULL THIC 09/12/2010 LEFT GROIN DEBRIDEMENT OPEN WOUND 20 SQ CM/< 11/22/2010 Debridement posterior neck/IANDD LLQ abd DEBRIDEMENT SUBCUTANEOUS TISSUE 20 SQ CM/< 09/11/2010 LEFT GROIN ESOPHAGOGASTRODUODENOSCOPY TRANSORAL DIAGNOSTIC 01/11/2019 EGD HEART SURGERY HX INCISION AND DRAINAGE ABSCESS SIMPLE/SINGLE 09/08/2010 IANDD abscess left groin INCISION AND DRAINAGE ABSCESS SIMPLE/SINGLE 10/23/2010 IANDD medial to left groin wound INCISION AND DRAINAGE ABSCESS SIMPLE/SINGLE 01/22/2011 IANDD LLQ superficial abscess REM LESION TRUNK,ARM, LEG <0.5 CM 03/21/2011 Exc. fibroepithelial polyp LLQ abd REVISION OF AORTIC VALVE 2005 Repair of Aortic Value/Thoracic anerusym repair SKIN BIOPSY HX Family History FAMILY HISTORY Problem Relation Age of Onset No Known Problems Mother Heart Father Bypass and valve replaced Breast Cancer Sister No Known Problems Brother No Known Problems Son No Known Problems Son Patient Allergies ALLERGIES Allergen Reactions Pantoprazole Diarrhea Current Medications Current Outpatient Medications on File Prior to Visit Medication Sig aspirin, enteric coated (ASPIRIN, ENTERIC COATED) 81 mg EC tablet Take 81 mg by mouth once daily. amLODIPine (NORVASC) 2.5 mg tablet Take 2.5 mg by mouth once daily. dulaglutide (TRULICITY) 1.5 mg/0.5 mL pen injector Inject 1.5 mg subcutaneously one time a week. Inject once per week. Discard Pen After tamsulosin (FLOMAX) 0.4 mg Take (more content not included)... [facility] 07-12-2022 Miscellaneous Notes Karly was notified Ewa Andino Ma Agree and will follow Karly with [facility] called and reports Pt was discharged yesterday and they received a referral for PT/OT/SN. They are going to do their start of care tomorrow, and she was asking if the provider would be willing to follow. documented in this encounter [facility] 07-09-2022 Miscellaneous Notes Last Office Visit: 04/16/2022 Future Office Visit: 09/17/2022 Requested Prescriptions Pending Prescriptions Disp Refills dulaglutide (TRULICITY) 1.5 mg/0.5 mL pen injector 12 Each 3 Sig: Inject 1.5 mg subcutaneously one time a week. Inject once per week. Discard Pen After Date of Last Labs: 03/02/2022 documented in this encounter [facility] 07-03-2022 Note HNO ID: [id number] Author: Arminda Obregon Service: ? Author Type: Physician Type: Progress Notes Filed: 07/03/2022 11:17 AM Note Text: Last saw Dr. Caldera: 04/16/22 Subjective: Patient presents to clinic c/o painful toenails. They state that the nails are especially painful with shoe gear and pressure. Patient admits to being diabetic. No other pedal complaints at this time. Patient states no change in medications or medical history since last visit. Objective: Patient presents to clinic ambulating in diabetic shoes Vasc: DP and PT pulses are palpable [...] hallux is downgoing bilateral. Derm: Nails 1-5 left and 2-5 right are discolored-yellow, thick, crumbly, dystrophic and with subungal debris. Skin is of normal turgor, texture and hair growth is present bilateral. There are no hyperkeratosis, ulcerations, scars, verruca or other lesions noted. Ortho: Muscle strength is 5/5 for all pedal groups tested. Ankle joint DF is decreased with the knee extended with no pain or crepitus noted. Amputation of right great toe Assessment: (B35.1) Onychomycosis (primary encounter diagnosis) (M79.675) Pain in toe of left foot (S98.131A) Amputated toe of right foot (HCC) (E11.42) Diabetic polyneuropathy associated with type 2 diabetes mellitus (HCC) Plan: Patient was seen and evaluated. Nails 1-5 left and 2-5 right were debrided in length and thickness. Patient was instructed on the continued importance of diabetic foot care along with proper diet and keeping their blood sugar under control to prevent complications. Patient is to RTC in 3-4 months. Arminda Obregon DPM [facility] 07-03-2022 Note HNO ID: [id number] Author: Marcella Cox RN Service: ? Author Type: Registered Nurse Type: Progress Notes Filed: 07/03/2022 11:17 AM Note Text: Patient presents with: Left Foot - Established Patient, Follow Up, nail care Right Foot - Established Patient, Follow Up, nail care [facility] 07-02-2022 Note HNO ID: [id number] Author: Bobbi Garcia MD Service: ? Author Type: Physician Type: Progress Notes Filed: 07/02/2022 12:42 PM Note Text: [facility] Cardiology ([facility]) [address] [facility] [id number] OUTPATIENT VISIT DATE 07/02/2022 PRIMARY CARE PHYSICIAN: Abdulaziz Caldera [address] [place] [address] HISTORY OF PRESENT ILLNESS: Mr. 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 He reports that he has very lazy and does almost nothing throughout the day. He sits and watches TV most of the day and usually has a couple naps throughout the day. He has had declining functional capacity since COVID pandemic started. He denies symptoms of shortness of breath or dyspnea on exertion. He does not have chest pain or pressure. He has had no recurrent symptoms concerning for syncope. He is maintained on Coumadin therapy for history of prior DVTs and PE. PAST CARDIAC HISTORY: From Last OV with Justina Hadley [facility] 01/01/2022: Richard Roy is a 76 year old male who presents for routine follow up. 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 His accompanies him for his office visit today. They both explain to me he was hospitalized at [facility] for 2 days last week for syncope/collapse. His states he was working outside on the hottest day last week when she found him passed out on his tractor. According to his , heat exhaustion and dehydration was determined to be the cause of syncope. states he has been without cardiac complaints and felt like he was in a normal state of health earlier that day. He denies chest pain, chest pain with activity, SOB, palpitations, dizziness, syncope, orthopnea, LE swelling. Records have been requested from [facility]. He is unsure of what testing was completed. An echocardiogram was ordered at his last office visit with me. If this was not completed at [facility], I recommend this be completed for further cardiac evaluation. PAST MEDICAL HISTORY Diagnosis Date BPH (benign prostatic hyperplasia) Cholelithiasis 09/25/2013 Chronic neutrophilia Benign-Dr. 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 Dr. Obregon at [facility] COLONOSCOPY 10/10/2021 repeat in 3 years COLONOSCOPY FLX DX W/COLLJ SPEC WHEN PFRMD 03/12/2011 DEBRIDEMENT OF SKIN, FULL THIC 09/12/2010 LEFT GROIN DEBRIDEMENT OPEN WOUND 20 SQ CM/< 11/22/2010 Debridement posterior neck/IANDD LLQ abd DEBRIDEMENT SUBCUTANEOUS TISSUE 20 SQ CM/< 09/11/2010 LEFT GROIN ESOPHAGOGASTRODUODENOSCOPY TRANSORAL DIAGNOSTIC 01/11/2019 EGD HEART SURGERY HX INCISION AND DRAINAGE ABSCESS SIMPLE/SINGLE 09/08/2010 IANDD abscess left groin INCISION AND DRAINAGE ABSCESS SIMPLE/SINGLE 10/23/2010 IANDD medial to left groin wound INCISION AND DRAINAGE ABSCESS SIMPLE/SINGLE 01/22/2011 IANDD LLQ superficial abscess REM LESION TRUNK,ARM, LEG <0.5 CM 03/21/2011 Exc. fibroepithelial polyp LLQ abd REVISION OF AORTIC VALVE 2005 Repair of Aortic Value/Thoracic anerusym repair SKIN BIOPSY HX SOCIAL HISTORY Social History Tobacco Use Smoking status: Never Smokeless tobacco: Never Vaping Use Vaping Use: Never used Substance Use Topics Alcohol use: No Drug use: No FAMILY HISTORY Problem Relation Age of Onset No Known Problems Mother Heart Father Bypass and valve replaced Breast Cancer Sister No Known Problems Brother No Known Problems Son No Known Problems Son ALLERGIES: ALLERGIES Allergen Reactions Pantoprazole Diarrhea MEDICATIONS: tamsulosin (FLOMAX) 0.4 mgTake 1 capsule by mouth daily at bedtime.Disp: 3 (more content not included)... [facility] 06-25-2022 Miscellaneous Notes Last appt: 04/16/22 - Next scheduled appt: 09/17/22 Patient has been identified by name and date of : Yes Requested Prescriptions Pending Prescriptions Disp Refills tamsulosin (FLOMAX) 0.4 mg 30 capsule 2 Sig: Take 1 capsule by mouth daily at bedtime. RX INSTRUCTIONS: Patient aware RX will be sent to pharmacy. No need to notify patient. Tania Heller LPN documented in this encounter [facility] 05-16-2022 Miscellaneous Notes Patient has been identified by name and date of : Yes Patient phones for refill(s): Requested Prescriptions Pending Prescriptions Disp Refills metFORMIN ER (GLUCOPHAGE XR) 500 mg 24 hr tablet 360 tablet 1 Sig: Take 2 tablets by mouth twice daily with meals. Date of last office visit in primary care: 04/16/22 next apt 09/17/22 Last 2 Encounter Wt Readings: Date: Wt: 04/17/2022 114.3 kg (252 lb) 04/16/2022 114.3 kg (252 lb) Previous labs/tests for medication: Diabetes: Hemoglobin A1C (%) Date Value 03/02/2022 6.4 08/30/2021 6.2 03/01/2021 6.5 Thank you. Mila Castro LPN documented in this encounter [facility] 04-17-2022 History of Presen t illness Narrative Images from the original note were not included. NEUROLOGY follow up note Interval history April 17, 2022 Accompanied by Tests results reviewed including mri dany and EEG NO confusion episodes No falls Positive romberg ,imbalance due to polyneuropathy. No loss of consciousness or falling Doing well ,stable clinically ,no new symptoms Refused antidepressant or psych ASSESSMENT: 76 year old male with baseline mental status and no recurrent episodes of confusion But denies depression PLAN: ---> work up for other causes of confusion and syncopal episode Office Visit on 04/17/22 CONSULT TO PSYCHOLOGY CONSULT TO PHYSICAL THERAPY For balance due to polyneuropathy ---> Follow-up: 1-2 months, Tests results will be discussed in the follow up appointment Medications side effects explained and discussed with the patient . CC: Episode of mental status samir HxCC: 76 year old male , who presents for evaluation of folllow up after hospitalization in [facility]. he was admitted because of syncopal episode , found him ,poorly responsive ,confused Doesn't remember being taken by squad to the hospital. Was confuseed in the hospital and balance was off Since he has been discharged and is back To baseline mental status according to the who accompanied him today. He likes to stay at home and not interested in going out ,or socialize with others Since covid hit [place] [facility] [place] and was staying in the house by himself , Has been like that for years since the pandemic ,possibly before He has a cane at home but not using it , He didn't think he needed Chronic back pain ,diabetes hypertension and hyperlipidemia ,as vascular risk factors Had stroke work up and MRI Brain in the hospital with no acute lesion or atrophy or hydrocephalus On further neurologic questioning, the patient denies new headaches, neck or back pain.no dysphonia or dysphagia. No saddle anesthesia. No muscular atrophy or fasciculations. RECENT LABS: WBC (k/uL) Date Value 01/01/2022 12.47 (H) RBC (m/uL) Date Value 01/01/2022 5.46 Hemoglobin (g/dL) Date Value 01/01/2022 14.5 Hematocrit (%) Date Value 01/01/2022 46.6 MCV (fL) Date Value 01/01/2022 85.3 MCH (pg) Date Value 01/01/2022 26.6 MCHC (g/dL) Date Value 01/01/2022 31.1 RDW-CV (%) Date Value 01/01/2022 14.5 Platelet Count (k/uL) Date Value 01/01/2022 287 MPV (fL) Date Value 01/01/2022 9.7 Last BMP (Basic Metabolic Panel) Lab Results Component Value Date NA 138 01/01/2022 NA 141 08/30/2021 Lab Results Component Value Date K 4.4 01/01/2022 K 5.0 08/30/2021 Lab Results Component Value Date CHLOR 101 01/01/2022 CHLOR 102 08/30/2021 Lab Results Component Value Date CO2 25 01/01/2022 CO2 26 08/30/2021 Lab Results Component Value Date BUN 15 01/01/2022 BUN 19 08/30/2021 Lab Results Component Value Date CREAT 1.20 01/01/2022 CREAT 1.25 08/30/2021 Lab Results Component Value Date GLUC 118 01/01/2022 GLUC 223 08/30/2021 Lab Results Component Value Date ANION 12 01/01/2022 ANION 13 08/30/2021 Lab Results Component Value Date CA 9.4 01/01/2022 CA 9.9 08/30/2021 TSH Date Value Ref Range Status 09/23/2013 1.590 0.400 - 5.500 uU/mL Final B12: RECENT IMAGING/DIAGNOSTICS: --MRI/MRA/MRV Brain w/wocontrast (/: --MRI Cervical Spine w/wocontrast (/: --EEG (/: This EEG is suggestive of cerebral dysfunction in the left temporal region. No epileptiform discharges or EEG seizures were seen during this recording. PMH: PAST MEDICAL HISTORY Diagnosis Date BPH (benign prostatic hyperplasia) Cholelithiasis 09/25/2013 Chronic neutrophilia Benign-Dr. 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 Dr. Obregon at [facility] COLONOSCOPY 10/10/2021 repeat in 3 years COLONOSCOPY FLX DX W/COLLJ SPEC WHEN PFRMD 03/12/2011 DEBRIDEMENT OF SKIN, FULL THIC 09/12/2010 LEFT GROIN DEBRIDEMENT OPEN WOUND 20 SQ CM/< 11/22/2010 Debridement posterior neck/I&D LLQ abd DEBRIDEMENT SUBCUTANEOUS TISSUE 20 SQ CM/< 09/11/2010 LEFT GROIN ESOPHAGOGASTRODUODENOSCOPY TRANSORAL DIAGNOSTIC 01/11/2019 EGD HEART SURGERY HX INCISION & DRAINAGE ABSCESS SIMPLE/SINGLE 09/08/2010 I&D abscess left groin INCISION & DRAINAGE ABSCESS SIMPLE/SINGLE 10/23/2010 I&D medial to left groin wound INCISION & DRAINAGE ABSCESS SIMPLE/SINGLE 01/22/2011 I&D LLQ superficial abscess REM LESION TRUNK,ARM, LEG <0.5 CM 03/21/2011 Exc. fibroepithelial polyp LLQ abd REVISION OF AORTIC VALVE 2005 Repair of Aortic Value/Thoracic anerusym repair SKIN BIOPSY HX CURRENT MEDS: Current Facility-Administered Medications Medication Dose Route Frequency perflutren lipid microspheres 1.3 mL in NaCl (PF) 0.9% 10 mL injection (DEFINITY) INTRAVENOUS DIRECTED PRN sodium chloride 0.9 % (flush) 10 mL (BD POSIFLUSH) 10 mL INTRAVENOUS DIRECTED PRN Current Outpatient Medications Medication Sig atorvastatin (LIPITOR) 40 mg tablet Take 1 tablet by mouth once daily. For cholesterol. tamsulosin (FLOMAX) 0.4 mg Take 1 capsule by mouth daily at bedtime. warfarin (COUMADIN) 5 mg tablet 10 mg Saturday and Saturday, 7.5 mg all other days or as directed. insulin needles, DISPOSABLE, (BD INSULIN PEN NEEDLE UF) 31 gauge x 5/16 1 Each four times daily. With insulin insulin glargine (LANTUS SOLOSTAR U-100 INSULIN) 100 unit/mL (3 mL) Inject 24 Units subcutaneously daily at bedtime. losartan (COZAAR) 50 mg tablet Take 1 tablet by mouth once daily. B cmplx 4/vit D3/C/folic/zinc (VITAL-D RX ORAL) Take by mouth one time a week. cholecalciferol, Vitamin D3, (VITAMIN D3) 1,250 mcg (50,000 unit) cap capsule Take 1 capsule by mouth one time a week. metFORMIN ER (GLUCOPHAGE XR) 500 mg 24 hr tablet Take 2 tablets by mouth twice daily with meals. metoprolol succinate ER (TOPROL XL) 200 mg 24 hr tablet Take 1 tablet by mouth once daily. dulaglutide (TRULICITY) 1.5 mg/0.5 mL pen injector Inject 1.5 mg subcutaneously one time a week. Inject once per week. Discard Pen After blood sugar diagnostic ([employer] ULTRA TEST) test strip Test blood sugar(s) 3 times daily. Dx: E11.49. Insulin: Yes Docusate Sodium 100 mg tab Take 100 mg by mouth once daily. insulin aspart U-100 (NOVOLOG FLEXPEN U-100 INSULIN) 100 unit/mL (3 mL) Inject with meals according to sliding scale: 100-200=3 units, 201-250=5 units, 251-300=8 units, 301-350=12 units, 351-400=15 units. Current Facility-Administered Medications Medication Dose Route Frequency perflutren lipid microspheres 1.3 mL in NaCl (PF) 0.9% 10 mL injection (DEFINITY) INTRAVENOUS DIRECTED PRN sodium chloride 0.9 % (flush) 10 mL (BD POSIFLUSH) 10 mL INTRAVENOUS DIRECTED PRN ALLERGIES: ALLERGIES Allergen Reactions Pantoprazole Diarrhea FMH: FAMILY HISTORY Problem Relation Age of Onset No Known Problems Mother Heart Father Bypass and valve replaced Breast Cancer Sister No Known Problems Brother No Known Problems Son No Known Problems Son SOCIAL: Social History Tobacco Use Smoking status: Never Smokeless tobacco: Never Vaping Use Vaping Use: Never used Substance Use Topics Alcohol use: No Drug use: No REVIEW OF SYSTEMS (In addition to HPI): PHYSICAL EXAM: BP 116/71 (BP Site: Right Arm, BP Position: Sitting, BP Cuff Size: Large Adult) Pulse 72 Resp 18 Ht 185.4 cm (6' 1 ) Wt 114.3 kg (252 lb) SpO2 98% BMI 33.25 kg/m GEN: Alert. NAD. Normal affect. Cooperative. HEENT: No icterus. Normal mucosa. No temporal artery tenderness. Fundoscopic exam unremarkable. NECK/BACK: No meningismus. No lymphadenopathy. No significant paraspinal neck or shoulder musculature tenderness or hypertonicity. No spinous process tenderness. CV: RRR. No M/G/R/C. No carotid bruits. RESP: CTA b/l. EXT: No cyanosis. No edema. No erythema. SKIN: No rashes. No lesions. NEUROLOGICAL: MENTAL STATUS: Awake alert oriented to his name and his age Oriented to day month and disoriented to the year But corrected himself and said 2021 3 words recall ,out of 3 93,86,79,72,65 Recall of 3 words out of 3 Copying repetition naming all good Scored 30/30 in MMSE Did the clock test perfectly fine CN: II: Visual barber intact. PERRLA. No Papilledema. III, IV, : EOMI. No ptosis present. Normal saccades. V: Symmetric facial sensation to PP. VII: Face symmetric. VIII: Hearing symmetric. No nystagmus. IX, X: Symmetric palatal rise. XI: Symmetric shoulder shrug. XII: Tongue midline with symmetric movements. MOTOR: Finger tap normal. No involuntary movement seen during today's exam. Normal tone and strength. No arm drift REFLEXES: Plantar response flexor b/l. No clonus. Negative Chris/Troemner. Negative palmomental, grasp, rooting, snouting and glabellar blink reflexes. SENSATION: PP, Proprioception, Vibration decreased and positive Romberg. CEREBELLAR: Normal F-N-F. Normal H-S. No dysmetria. No nystagmus. GAIT: Wide based gait ,unsteady Cannot tandem Tamie Kaur M.D. [facility] Neurological [place] Department of Neurology Total time in minutes spent with patient, reviewing records, labs, imaging, formulating plan, and documentin minutes with more than 50% of the time spent in patient education/counselling/coordinati ng care with the patient and /or family. I have discussed with the patient how to reduce likelihood of falling in home by removing throw rugs, loose wires or other objects from floor, installing hand-rails and leaving lights on at night. documented in this encounter [facility] 04-17-2022 Miscellaneous Notes Reviewed. Behavioral Health Social Work Progress Note Patient identified for [facility] from: PCP Reason for referral: Resources Behavioral Health Resources: Psychology - talk therapy [facility] encounter type: Telephone Encounter Attempts to Outreach: 1 attempt Referral made: Psychology - External Psychology-External referral type: Therapy Reason for external referral: Wait times at [facility] too long Final Disposition: Resources given Patient Discharged?: Yes Patient reported that caregiver was able to meet their needs today?: Yes SW placed a phone call to patient at the request of the PCP. Pt reported he is looking for talk therapy referrals at this time. SW provided the following referrals via phone: [facility] [address], [facility], [facility] [address] *[facility] [address] [address] *counseling [facility] [address], [address] [place] [address] *counseling [facility] [address] [place] [address] FEDERICO Zamudio April 17, 2022 documented in this encounter [facility] 04-16-2022 History of Presen t illness Narrative Chief Complaint Patient presents with: Physical HPI Richard Roy is a 76 year old male who presents here today for routine follow up. Accompanied today by . Has been in good health without hospitalizations or ER visits. Noted patient had mild depression symptoms on PHQ-9 at last OV on 04/06. Patient refused medication and counseling at that time. states he still has no motivation. Just sits all day in the chair, watches TV, and plays on his tablet. Interested in counseling and would like referral. Denies SI/HI. DIABETES MELLITUS: Mr. Roy was last seen 6 months ago. Since our last visit he denies excessive thirst or increased frequency of urination, numbness, tingling or pain in extremities, new or unusual visual symptoms, low sugar/hypoglycemic reactions, and weight loss/gain. Follows a diabetic diet most of the time. He is compliant with medication(s) and is tolerating med(s) without any side effects. He reports checking his glucose on a infrequent to not at all basis. Patient's last HgA1C was Hemoglobin A1C (%) Date Value 03/02/2022 6.4 08/30/2021 6.2 03/01/2021 6.5 ) Last Ophthalmology exam was more than 12 months ago with mild right DM retinopathy Last Podiatry exam was within the past 3 months-03/[address] Obregon. BPH: patient getting up to urinate 1-2 times per night on flomax and incontinence has improved. Taking coumadin daily as prescribed for history of pulmonary embolism and aortic valve repair. INR therapuetic on last check. Denies bleeding/bruising. Past medical history, appointments, medications, allergies reviewed. Previous Medical History PAST MEDICAL HISTORY Diagnosis Date Cholelithiasis 09/25/2013 Chronic neutrophilia Benign-Dr. 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 Dr. Obregon at [facility] COLONOSCOPY 10/10/2021 repeat in 3 years COLONOSCOPY FLX DX W/COLLJ SPEC WHEN PFRMD 03/12/2011 DEBRIDEMENT OF SKIN, FULL THIC 09/12/2010 LEFT GROIN DEBRIDEMENT OPEN WOUND 20 SQ CM/< 11/22/2010 Debridement posterior neck/I&D LLQ abd DEBRIDEMENT SUBCUTANEOUS TISSUE 20 SQ CM/< 09/11/2010 LEFT GROIN ESOPHAGOGASTRODUODENOSCOPY TRANSORAL DIAGNOSTIC 01/11/2019 EGD HEART SURGERY HX INCISION & DRAINAGE ABSCESS SIMPLE/SINGLE 09/08/2010 I&D abscess left groin INCISION & DRAINAGE ABSCESS SIMPLE/SINGLE 10/23/2010 I&D medial to left groin wound INCISION & DRAINAGE ABSCESS SIMPLE/SINGLE 01/22/2011 I&D LLQ superficial abscess REM LESION TRUNK,ARM, LEG <0.5 CM 03/21/2011 Exc. fibroepithelial polyp LLQ abd REVISION OF AORTIC VALVE 2004 Repair of Aortic Value/Thoracic anerusym repair SKIN BIOPSY HX Family History FAMILY HISTORY Problem Relation Age of Onset No Known Problems Mother Heart Father Bypass and valve replaced Breast Cancer Sister No Known Problems Brother No Known Problems Son No Known Problems Son Patient Allergies ALLERGIES Allergen Reactions Pantoprazole Diarrhea Current Medications Current Outpatient Medications on File Prior to Visit Medication Sig atorvastatin (LIPITOR) 40 mg tablet Take 1 tablet by mouth once daily. For cholesterol. tamsulosin (FLOMAX) 0.4 mg Take 1 capsule by mouth daily at bedtime. warfarin (COUMADIN) 5 mg tablet 10 mg Saturday and Saturday, 7.5 mg all other days or as directed. insulin needles, DISPOSABLE, (BD INSULIN PEN NEEDLE UF) 31 gauge x 5/16 1 Each four times daily. With insulin insulin glargine (LANTUS SOLOSTAR U-100 INSULIN) 100 unit/mL (3 mL) Inject 24 Units subcutaneously daily at bedtime. losartan (COZAAR) 50 mg tablet Take 1 tablet by mouth once daily. B cmplx 4/vit D3/C/folic/zinc (VITAL-D RX ORAL) Take by mouth one time a week. cholecalciferol, Vitamin D3, (VITAMIN D3) 1,250 mcg (50,000 unit) cap capsule Take 1 capsule by mouth one time a week. metFORMIN ER (GLUCOPHAGE XR) 500 mg 24 hr tablet Take 2 tablets by mouth twice daily with meals. metoprolol succinate ER (TOPROL XL) 200 mg 24 hr tablet Take 1 tablet by mouth once daily. dulaglutide (TRULICITY) 1.5 mg/0.5 mL pen injector Inject 1.5 mg subcutaneously one time a week. Inject once per week. Discard Pen After blood sugar diagnostic ([employer] ULTRA TEST) test strip Test blood sugar(s) 3 times daily. Dx: E11.49. Insulin: Yes Docusate Sodium 100 mg tab Take 100 mg by mouth once daily. insulin aspart U-100 (NOVOLOG FLEXPEN U-100 INSULIN) 100 unit/mL (3 mL) Inject with meals according to sliding scale: 100-200=3 units, 201-250=5 units, 251-300=8 units, 301-350=12 units, 351-400=15 units. Current Facility-Administered Medications on File Prior to Visit Medication perflutren lipid microspheres 1.3 mL in NaCl (PF) 0.9% 10 mL injection (DEFINITY) sodium chloride 0.9 % (flush) 10 mL (BD POSIFLUSH) Social History Social History Tobacco Use Smoking status: Never Smokeless tobacco: Never Vaping Use Vaping Use: Never used Substance Use Topics Alcohol use: No Drug use: No Review of Symptoms REVIEW OF SYSTEMS GENERAL: No weight loss, malaise or fevers RESPIRATORY: Negative for cough, hemoptysis, wheezing, COPD, dyspnea or shortness of breath CARDIOVASCULAR: Negative for chest pain, leg swelling, hypertension, CHF or palpitations GI: No nausea, vomiting, or diarrhea SKIN: Negative for lesions, rash, and itching EXAM: BP 132/72 Pulse 70 Resp 16 Ht 185.4 cm (6' 1 ) Wt 114.3 kg (252 lb) SpO2 98% BMI 33.25 kg/m General Appearance: Well appearing, alert, in no acute distress, well-hydrated, well nourished.. Skin: Skin color, texture, turgor normal, no suspicious rashes or lesions. Lungs: Lungs clear to auscultation. No wheezing, rhonchi, rales.. Heart: RRR without murmur, gallop, or rubs. No ectopy. Abdomen: Normal abdominal exam, Abdomen soft, non-tender. Bowel sounds normal. No masses, organomegaly. Extremities: No deformities, edema, skin discoloration, clubbing or cyanosis. Good capillary refill. . Health Maintenance List DTAP,TDAP,TD(3 - Td or Tdap) due on 12/25/2020 ADVANCE DIRECTIVE DISCUSSION Never done DEPRESSION ASSESSMENT Never done DIABETIC FOOT EXAM due on 11/23/2021 DILATED RETINAL EXAM due on 02/20/2022 HBA1C due on 09/02/2022 LDL CHOLESTEROL due on 01/01/2023 URINE ALBUMIN:CREATININE RATIO due on 03/02/2023 SERUM CREATININE due on 03/07/2023 ANNUAL PCP TEAM CHRONIC DISEASE VISIT due on 04/06/2023 BP CONTROLLED (<130/80) due on 04/06/2023 COLORECTAL CANCER SCREENING due on 10/10/2024 INFLUENZA Completed HEPATITIS C SCREENING Completed SHINGRIX VACCINE Completed COVID-19 VACCINE Completed PNEUMOCOCCAL: 65+ Completed Data reviewed Component Latest Ref Rng & Units 01/01/2022 03/02/2022 03/07/2022 WBC 3.70 - 11.00 k/uL 12.47 (H) RBC 4.20 - 6.00 m/uL 5.46 Hemoglobin 13.0 - 17.0 g/dL 14.5 Hematocrit 39.0 - 51.0 % 46.6 MCV 80.0 - 100.0 fL 85.3 MCH 26.0 - 34.0 pg 26.6 MCHC 30.5 - 36.0 g/dL 31.1 RDW-CV 11.5 - 15.0 % 14.5 Platelet Count 150 - 400 k/uL 287 MPV 9.0 - 12.7 fL 9.7 Neut% % 73.8 Abs Neut (ANC) 1.45 - 7.50 k/uL 9.20 (H) Lymph% % 14.5 Abs Lymph 1.00 - 4.00 k/uL 1.81 [place]% % 6.9 Abs [place] <0.87 k/uL 0.86 Eosin% % 3.1 Abs Eosin <0.46 k/uL 0.39 Baso% % 0.5 Abs Baso <0.11 k/uL 0.06 Immature Gran % % 1.2 IMMATURE GRANS (ABS) <0.10 k/uL 0.15 (H) NRBC /100 WBC 0.0 Absolute nRBC <0.01 k/uL <0.01 DTYPE Auto Protein, Total 6.3 - 8.0 g/dL 6.6 6.7 Albumin 3.9 - 4.9 g/dL 4.2 4.3 Calcium 8.5 - 10.2 mg/dL 9.4 9.5 Bilirubin, Total 0.2 - 1.3 mg/dL 0.6 0.5 Alkaline Phosphatase 38 - 113 U/L 96 106 AST 14 - 40 U/L 20 14 ALT 10 - 54 U/L 29 17 Glucose 74 - 99 mg/dL 118 (H) 125 (H) BUN 9 - 24 mg/dL 15 16 Creatinine 0.73 - 1.22 mg/dL 1.20 1.19 Sodium 136 - 144 mmol/L 138 138 Potassium 3.7 - 5.1 mmol/L 4.4 5.0 Chloride 97 - 105 mmol/L 101 101 CO2 22 - 30 mmol/L 25 26 Anion Gap 9 - 18 mmol/L 12 11 eGFR >=60 mL/min/1.73m 63 64 Cholesterol, Total <200 mg/dL 118 Triglyceride <150 mg/dL 141 HDL Cholesterol >39 mg/dL 35 (L) Non HDL Cholesterol <130 mg/dL 83 Fasting Time hrs 12 VLDL Cholesterol <30 mg/dL 28 TC:HDL Ratio <5.10 3.37 LDL Cholesterol <100 mg/dL 55 LDL:HDL Ratio <2.54 1.57 Creatinine, Ur Random (UCRR) 20.0 - 300.0 mg/dL 161.8 Albumin, Urine Random mg/L 23.8 Albumin/Creat Ratio <30 mg/g 15 Hemoglobin A1C 4.3 - 5.6 % 6.4 (H) Estimated Average Glucose mg/dL 137 Vitamin D 25 Hydroxy 31.0 - 80.0 ng/mL 14.4 (L) 34.2 Vitamin B12 232-1,245 pg/mL 377 PSA Screening <2.60 ng/mL 1.75 ASSESSMENT/PLAN: 1. Type 2 diabetes mellitus with stage 3a chronic kidney disease, with long-term current use of insulin ([facility]) - ICD9: 250.40, 585.3, V58.67, ICD10: E11.22, N18.31, Z79.4 (primary diagnosis) Controlled. - Continue current medications - Blood glucose monitoring on a 3 times a day schedule - Encouraged regular aerobic exercise and weight loss - Follow up in 6 months, sooner should any other issues arise. 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 2. 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 Patient to call optho for yearly exam. 3. Essential hypertension, benign - ICD9: 401.1, ICD10: I10 - good control - Continue current medication(s) - Encouraged dietary sodium restriction/DASH diet - Recommended regular aerobic exercise. - Reviewed risks of HTN and principles of treatment - Goal of BP <140/90 4. Hyperlipidemia with target LDL less than 100 - ICD9: 272.4, ICD10: E78.5 - good control - Continue current medication. - Encouraged following a low fat, low cholesterol diet. - Discussed the benefits of regular aerobic exercise and weight loss. 5. Mild depression - ICD9: 311, ICD10: F32.A Refer to counseling. Refusing rx. - CONSULT TO [facility] ADULT 6. BPH without urinary obstruction - ICD9: 600.00, ICD10: N40.0 Controlled on current regimen. Abdulaziz Caldera MD documented in this encounter [facility] documented in this encounter [facility]09-23-2022 History of Present illness Narrative* Roselia Madrigal, CROZE CUTTER.HAT CUTTER - 04/06/2022 9:40 AM EDT 04/06/2022 Patient presents with: Recheck: Generalized weakness SUBJECTIVE: This is a 76 year old, accompanied by , that is here today for Above Complaints. Here for follow-up regarding generalized weakness. Overall feel improved. Followed-up with neurology for syncopal episode back in December, lack of motivation, weakness and memory changes. PT ordered by neurology which he completed. Had EEG testing and will be following up with them in April to discuss results. Denies visual changes, lightheadedness, dizziness, falls, extremity numbness, tingling, weakness, SOB, dyspnea, chest pain, palpitations or leg edema concerned because she reports he never wants to leave the house and do anything. Likes to sit and watch television. Patient reports that's what he likes to do. He denies feeling down, depresses or hopeless. PHQ9: 6 PAST MEDICAL HISTORY Diagnosis Date Cholelithiasis 09/25/2013 Chronic neutrophilia Benign-Dr. 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 warfarin (COUMADIN) 5 mg tablet 10 mg Saturday and Saturday, 7.5 mg all other days or as directed. insulin needles, DISPOSABLE, (BD INSULIN PEN NEEDLE UF) 31 gauge x 5/16 1 Each four times daily. With insulin insulin glargine (LANTUS SOLOSTAR U-100 INSULIN) 100 unit/mL (3 mL) Inject 24 Units subcutaneously daily at bedtime. losartan (COZAAR) 50 mg tablet Take 1 tablet by mouth once daily. metFORMIN ER (GLUCOPHAGE XR) 500 mg 24 hr tablet Take 2 tablets by mouth twice daily with meals. metoprolol succinate ER (TOPROL XL) 200 mg 24 hr tablet Take 1 tablet by mouth once daily. dulaglutide (TRULICITY) 1.5 mg/0.5 mL pen injector Inject 1.5 mg subcutaneously one time a week. Inject once per week. Discard Pen After atorvastatin (LIPITOR) 40 mg tablet TAKE 1 TABLET BY MOUTH ONCE DAILY. FOR CHOLESTEROL. blood sugar diagnostic ([employer] ULTRA TEST) test strip Test blood sugar(s) 3 times daily. Dx: E11.49. Insulin: Yes insulin aspart U-100 (NOVOLOG FLEXPEN U-100 INSULIN) 100 unit/mL (3 mL) Inject with meals accordingto sliding scale: 100-200=3 units, 201-250=5 units, 251- 300=8 units, 301-350=12 units, 351-400=15 units. B cmplx 4/vit D3/C/folic/zinc (VITAL-D RX ORAL) Take by mouth one time a week. cholecalciferol, Vitamin D3, (VITAMIN D3) 1,250 mcg (50,000 unit) cap capsule Take 1 capsule by mouth one time a week. Docusate Sodium 100 mg tab Take 100 mg by mouth once daily. Current Facility-Administered Medications Medication Dose Route Frequency perflutren lipid microspheres 1.3 mL in NaCl (PF) 0.9% 10 mL injection (DEFINITY) INTRAVENOUS DIRECTED PRN sodium chloride 0.9 % (flush) 10 mL (BD POSIFLUSH) 10 mL INTRAVENOUS DIRECTED PRN Medications and allergies reviewed by this provider. SOCIAL HISTORY Social History Tobacco Use Smoking status: Never Smokeless tobacco: Never Vaping Use Vaping Use: Never used Substance Use Topics Alcohol use: No Drug use: No REVIEW OF SYSTEMS All other reviewed and negative other than HPI. OBJECTIVE: BP 112/62 Pulse 62 Resp 16 Wt 114.3 kg (252 lb) SpO2 97% BMI 33.25 kg/m . Vital signs reviewed by this provider. APPEARANCE Well appearing, alert, in no acute distress, well-hydrated, well nourished. EYES conjunctiva and sclera normal. HEART RRR with normal S1 and S2, no murmurs, no gallops, no JVD appreciated LUNG clear to auscultation. No wheezes, rhonchi, or rales EXTREMITIES Extremities normal, No deformities, No skin discoloration, and No edema SKIN Skin color, texture, turgor normal, no suspicious rashes or lesions to exposed skin PSYCH: Posture and motor behavior: normal posture and motor behavior Dress, grooming, personal hygiene: normal dress and grooming Facial expression: good eye contact Speech: normal speech Mood: flat affect Coherency and relevance of thought: normal thought processes Memory: normal memory Component Latest Ref Rng & Units 03/07/2022 Protein, Total 6.3 - 8.0 g/dL 6.7 Albumin 3.9 - 4.9 g/dL 4.3 Calcium 8.5 - 10.2 mg/dL 9.5 Bilirubin, Total 0.2 - 1.3 mg/dL 0.5 Alkaline Phosphatase 38 - 113 U/L 106 AST 14 - 40 U/L 14 ALT 10 - 54 U/L 17 Glucose 74 - 99 mg/dL 125 (H) BUN 9 - 24 mg/dL 16 Creatinine 0.73 - 1.22 mg/dL 1.19 Sodium 136 - 144 mmol/L 138 Potassium 3.7 - 5.1 mmol/L 5.0 Chloride 97 - 105 mmol/L 101 CO2 22 - 30 mmol/L 26 Anion Gap 9 - 18 mmol/L 11 eGFR >=60 mL/min/1.73m 64 Component Latest Ref Rng & Units 03/02/2022 Creatinine, Ur Random (UCRR) 20.0 - 300.0 mg/dL 161.8 Albumin, Urine Random mg/L 23.8 Albumin/Creat Ratio <30 mg/g 15 Hemoglobin A1C 4.3 - 5.6 % 6.4 (H) Estimated Average Glucose mg/dL 137 Vitamin D 25 Hydroxy 31.0 - 80.0 ng/mL 34.2 DTAP,TDAP,TD(3 - Td or Tdap) due on 12/25/2020 ADVANCE DIRECTIVE DISCUSSION Never done DIABETIC FOOT EXAM due on 11/23/2021 DILATED RETINAL EXAM due on 02/20/2022 HBA1C due on 09/02/2022 LDL CHOLESTEROL due on 01/01/2023 URINE ALBUMIN:CREATININE RATIO due on 03/02/2023 SERUM CREATININE due on 03/07/2023 ANNUAL PCP TEAM CHRONIC DISEASE VISIT due on 04/06/2023 BP CONTROLLED (<130/80) due on 04/06/2023 DEPRESSION SCREENING due on 04/06/2023 COLORECTAL CANCER SCREENING due on 10/10/2024 INFLUENZA Completed HEPATITIS C SCREENING Completed SHINGRIX VACCINE Completed COVID-19 VACCINE Completed PNEUMOCOCCAL: 65+ Completed ASSESSMENT/PLAN: 1. Generalized weakness - ICD9: 780.79, ICD10: R53.1 (primary diagnosis) - improved - continue to stay active and continue recommendations for home PT - follow-up with neurology as scheduled 2. Encounter for immunization - ICD9: V03.89, ICD10: Z23 - INFLUENZA SEASONAL QUADRIVALENT HIGH DOSE AGE 65+ - [employer] COVID-19 BIVALENT BOOSTER VACCINE, AGE 12+ YR 3. Mild depression - ICD9: 311, ICD10: F32.A - discussed antidepressant - patient declines- he reports he does not feel depressed - encouraged marriage counseling as seems to be unhappy about his lack of motivation Roselia Madrigal APRN.CNP Prescription instructions reviewed with patient as applicable. Patient advised if symptoms do not improve or if symptoms worsen sooner, to contact their primary care physician. Potential red flag symptoms discussed with the patient. Reviewed appropriate action plan to take if red flag symptoms occur. Patient agreeable to treatment plan. I spent a total of 30 minutes on the date of the service which included preparing to see the patient, [id number] patient care, completing clinical documentation, obtaining and/or reviewing separately obtained history, performing a medically appropriate examination, and counseling and educating the patient/family/caregiver. documented in this encounterAd[facility]09-21-2022 Miscellaneous Notes* Telephone Encounter - Valencia Pascual MA - 04/04/2022 7:22 PM EDT Patient notified and voiced understanding. Valencia Pascual MA * Telephone Encounter - Kee Tripp MD - 04/04/2022 5:02 PM EDT Advise patient to continue current dosing of Coumadin. Needs to repeat INR in a month. * Telephone Encounter - Razia Shaver Ma - 04/04/2022 10:02 AM EDT Last INR: PT INR 2.7 04/03/2022 Current dose of coumadin is: 10 mg Sat and Sat, then 7.5 mg all other days. Last date of dose change: Unk. Previous INR (date and result): 2.9 on 03/07/22 Additional Clinical Information or narrative: no Routed to [facility] Provider to review and advise. Razia Shaver Ma * Telephone Encounter - Razia Shaver Ma - 04/04/2022 10:02 AM EDT ----- Message from Roselia Madrigal APRN.HAT CUTTER sent at 04/03/2022 2:47 PM EDT ----- Please forward INR to doctor operations advisor Roselia Madrigal APRN.HAT CUTTER documented in this encounterAdams [facility]09-16-2022 History of Present illness Narrative* Arminda Obregon - 03/30/2022 3:46 PM EDT Last saw Dr. Caldera: 03/07/22 Subjective: Patient presents to clinic c/o painful toenails. They state that the nails are especially painful with shoe gear and pressure. \ Patient admits to being diabetic. No other pedal complaints at this time. Patient states no change in medications or medical history since last visit. Objective: Patient presents to clinic ambulating in diabetic shoes Vasc: DP and PT pulses are palpable bilateral. CFT is less than 5 seconds bilateral. Skin temperature is warm to cool proximal to distal bilateral. There is mild edema or varicosities noted. Neuro: Protective sensation is absent to the foot and toes when tested with the 5.07 SWM bilateral.Vibratory sensation is absent at the hallux IPJ bilateral. The hallux is downgoing bilateral. Derm: Nails 1-5 left and 2-5 right are discolored-yellow, thick, crumbly, dystrophic and with subungal debris. Skin is of normal turgor, texture and hair growth is present bilateral. There are no hyperkeratosis, ulcerations, scars, verruca or other lesions noted. Small splinter is noted in right arch. This was removed with forceps. No signs of infection. Ortho: Muscle strength is 5/5 for all pedal groups tested. Ankle joint DF is decreased with the knee extended with no pain or crepitus noted. 1st MPJ ROM is decreased bilateral. 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 Nails 1-5 left and 2-5 right were debrided in length and thickness. Q7 modifier. Small splinter removed with forceps. No signs of infection. Recommended patient avoid barefoot walking. Patient was instructed on the continued importance of diabetic foot care along with proper diet andkeeping their blood sugar under control to prevent complications. Patient is to RTC in 3-4 months. Arminda Obregon DPM * Merlene Martinez LPN - 03/30/2022 3:29 PM EDT Patient presents with: Left Foot - Established Patient, Follow Up, Diabetic Foot Care Right Foot - Established Patient, Follow Up, Diabetic Foot Care Merlene Martinez LPN documented in this encounterAdams [facility]09-16-2022 Instructions* Patient Instructions* Arminda Obregon - 03/30/2022 3:46 PM EDT Diabetes Foot Care Instructions When you have diabetes, proper foot care is very important. Poor foot care may lead to amputation of a foot or leg. As a person with diabetes, you are more vulnerable to foot problems, because diabetes can damage your nerves and reduce blood flow to your feet. Here are some diabetes foot care tips to follow: Wash and Dry Your Feet Daily Use mild soaps Use warm water Pat your skin dry; do not rub. Thoroughly dry your feet. After washing, use lotion on your feet to prevent cracking. Do not put lotion between your toes. Examine Your Feet Each Day Check the tops and bottoms of your feet. Have someone else look at your feet if you cannot see them. Check for dry, cracked skin. Look for blisters, cuts, scratches, or other sores. Check for redness, increased warmth, or tenderness when touching any area of your feet. Check for ingrown toenails, corns, and calluses. If you get a blister or sore from your shoes, do not pop it. Apply a bandage and wear a differentpair of shoes. Take Care of Your Toenails Cut toenails after bathing, when they are soft. Cut toenails straight across and smooth with a nail file. Avoid cutting into the corners of toes. Do not cut cuticles. If you have neuropathy (or decreased sensation in your feet) a enrollment management vice president should always cut your toenails. Be Careful When Exercising Walk and exercise in comfortable shoes. Do not exercise when you have open sores on your feet. Protect Your Feet With Shoes and Socks Never go barefoot. Always protect your feet by wearing shoes or hard-soled slippers or footwear. Avoid shoes with high heels and pointed toes. Avoid shoes that expose your toes or heels (such as open-toed shoes or sandals). These types of shoes increase your risk for injury and potential infections. Try on new footwear with the type of socks you usually wear. Do not wear new shoes for more than an hour at a time. Change your socks daily. Look and feel inside your shoes before putting them on to make sure there are no foreign objects orrough areas. Avoid tight socks. Wear natural-fiber socks (cotton, wool, or a cotton-wool blend). Wear special shoes if your health care provider recommends them. Wear shoes/boots that will protect your feet from various weather conditions (cold, moisture, etc.). Make sure your shoes fit properly. If you have neuropathy (nerve damage), you may not notice that your shoes are too tight. Perform the footwear test described below. Footwear Test Use this simple test to see if your shoes fit correctly: Stand on a piece of paper. (Make sure you are standing and not sitting, because your foot changes shape when you stand.) Trace the outline of your foot. Trace the outline of your shoe. Compare the tracings: Is the shoe too narrow? Is your foot crammed into the shoe? The shoe should be at least 1/2 inch longer than your longest toe and as wide as your foot. Proper Shoe Choices The following types of shoes are best for people with diabetes Closed toes and heels Leather uppers without a seam inside At least 1/2 inch extra space at the end of your longest toe Inside of shoe should be soft with no rough areas Outer sole should be made of stiff material Shoes should be at least as wide as your feet Tips for Foot Care in Diabetes Don't wait to treat a minor foot problem if you have diabetes. Follow your health care provider's guidelines and first aid guidelines. Report foot injuries and infections to your health care provider immediately. Check water temperature with your elbow, not your foot. Do not use a heating pad on your feet. Do not cross your legs. Do not self-treat your corns, calluses, or other foot problems. Go to your health care provider or enrollment management vice president to treat these conditions. documented in this encounterAd[facility]09-09-2022 History of Present illness Narrative* Rosa Elena Poon, PT - 03/23/2022 12:03 PM EDT Episode Visit Count: 17 Therapist That Will Oversee The Plan Of Care: Rosa Elena Poon Start of Care Date: 01/12/22 Onset Date: 12/28/21 Plan of Care Certification Date: 03/09/22 Next Certification Due Date: 03/23/22 Patient Identified by Name and Date of : Yes REHABILITATION AND SPORTS THERAPY PHYSICAL THERAPY DISCONTINUANCE OF CARE PLAN OF CARE UPDATE: Assessment: Richard Roy is discontinued from Physical Therapy services due to goal achievement.. Patient was seen for 17 visits from Start of Care Date: 01/12/22 to 03/23/2022 and treatment included: Therapeutic exercise, Neuromuscular re-education, and Patient/Family/Caregiver Education. Goals for Episode of Care: created on 01/12/22 through 03/15/22 Goals updated on 03/23/2022. [place] in home exercise program. (Met) Patient will demonstrate increase in B LE strength to 4+ to 5/5 during manual muscle testing in order to improve function for home management tasks and prior functional tasks. (Met) Normal gait. (Met) Patient will report no falls. (Met) Improve score on Timed Up and Go Test to <12 seconds to reflect decreased fall risk. (Not Met) = 12 seconds Improve score on 30 Second Chair Stand to 8-10 repetitions to reflect decreased fall risk. (Met) Improve performance on 4 Stage Balance Test to tandem stance, R SLS, L SLS x 10 sec to reflect decreased fall risk. (Partially Met)- met for tandem stance, not SLS. Patient Goals: Pt states he would like to be able to stand for longer periods of time. (Met) SUBJECTIVE: Patient Reason for Visit: Pt states he has not had any falls and feels he is doing wellat home. He reports compliance with HEP and is pleased with his progress. Functional Limitations: walking in the community (Pt still requires seated rest breaks for longer, community distance ambulation.) Pain: Pain Pain Level: 0 Post Treatment Pain Post Treatment Pain Level: 0 PROMIS Scales T-scores: mean of general population = 50. 5 points is clinically meaningfully difference Percentiles provide an indication of how the patient's score ranks in relation to the general population. Higher percentile rankings indicate better function/quality of life. 50th percentile is the average of the general population and indicates half of respondents had a worse score. T-scores: mean of general population = 50. 5 points is clinically meaningfully difference Percentiles provide an indication of how the patient's score ranks in relation to the general population. Higher percentile rankings indicate better function/quality of life. 50th percentile is the average of the general population and indicates half of respondents had a worse score. OBJECTIVE MEASURES WITH LEVEL OF FUNCTION: Posture / Alignment Posture: (Pt demonstrates improved, upright trunk posture in standing and walking.) LE Strength R Hip Flexion (L2): 5/5 R Hip ABduction: 4+/5 R Hip ADduction: 5/5 R Knee Extension (L3): 4+/5 R Knee Flexion: 5/5 R Ankle Plantar Flexion: 5/5 L Hip Flexion (L2): 5/5 L Hip ABduction: 4+/5 L Hip ADduction: 5/5 L Knee Extension (L3): 4+/5 L Knee Flexion: 5/5 L Ankle Dorsiflexion (L4): 5/5 L Ankle Plantar Flexion: 5/5 Mobility Sit To Stand: Independent (Pt is performing with much less effort and without using UE assist.) Balance Single Leg Stance: R LE 2 sec, L LE 3 sec Functional Performance Test Results 30 Second Chair Stand Test: 11 reps (no hands) Timed Up and Go (sec): 12 sec (no assistive device) TREATMENT: Therapeutic Exercise: 1: SciFit seat 15, level 1 x 5 minutes. (Discussed pt progress and goals during this time.) 2: Sit to stand from chair (30 sec) 1x11 3: Standing B hip abduction and extension 2x15 each 4: Supine bridging 2x10 (Instructed pt on performing this with his arms across his chest to increase difficulty as this exercise becomes easier.) Skilled Intervention: Patient was educated in proper exercise technique and purpose for exercises. Reviewed and educated patient on additions/changes for home exercise program and instructed in gradual progression of exercises reps/sets as pt continues to progress independently. Skilled judgment was provided in selection of appropriate interventions. Correct performance of therapeutic exercises was facilitated with verbal and visual cuing. Additional time necessary for objective measurements and reassessment due to progress update and discharge. Patient education as noted. Neuromuscular Re-Education: 1: Lateral stepping over and back AirEx pad 1x10 each direction with UE assist on parallel bar 2: High knee marching at // bars 1 UE assist 4 x length of bars 3: SLS right 2 second and left 3 seconds with no UE assist. And multiple attempts with 1 UE assist left and right to fatigue. Skilled Intervention: Skilled judgment used to assess appropriate program for balance and coordination activity. Education in proprioceptive/kinesthetic awareness during standing and dynamic activities. Ensured patient safety with use of parallel bars and therapist supervision to CGA. Patient education as noted. Billing Therapeutic Exercise Treatment Minutes: 25 Neuromuscular Re-Education Treatment Minutes: 17 Total Treatment Time Minutes (timed/untimed): 42 Rosa Elena Poon PT documented in this encounterAd[facility]09-08-2022 Miscellaneous Notes* Telephone Encounter - Maggy Ibarra Pss - 03/22/2022 1:49 PM EDT Pharmacy verified in [facility] Patient has been identified by name and date of : Yes Patient aware RX will be sent to pharmacy. No need to notify patient. Patient phones for refill(s): Requested Prescriptions Pending Prescriptions Disp Refills tamsulosin (FLOMAX) 0.4 mg 30 capsule 2 Sig: Take 1 capsule by mouth daily at bedtime. Date of last office visit : 03/07/2022 Date of next office visit : 04/06/2022 Last 2 Encounter Wt Readings: Date: Wt: 03/07/2022 114.8 kg (253 lb) 01/05/2022 111.6 kg (246 lb) Not applicable Please advise. Maggy Ibarra Pss documented in this encounterAdams [facility]09-02-2022 History of Present illness Narrative* Rosa Elena Poon, PT - 03/16/2022 7:05 AM EDT Episode Visit Count: 16 Therapist That Will Oversee The Plan Of Care: Rosa Elena Poon Start of Care Date: 01/12/22 Onset Date: 12/28/21 Plan of Care Certification Date: 03/09/22 Next Certification Due Date: 03/23/22 Patient Identified by Name and Date of : Yes REHABILITATION AND SPORTS THERAPY PHYSICAL THERAPY TREATMENT NOTE ASSESSMENT: Richard Roy tolerated the session with fatigue. He demonstrated fatigue with standing exercises needing short rest breaks. He is progressing with activities on uneven surfaces.. The patient will continue to benefit from ongoing skilled physical therapy to progress toward set goals. PLAN FOR NEXT VISIT: Progress balance SUBJECTIVE: Patient Reason for Visit: Patient reports doing newly added bridging 2-3 times per day since last seen. He deneis falls and denies pain. Pain: Pain Pain Level: 0 Post Treatment Pain Post Treatment Pain Level: 0 OBJECTIVE MEASURES WITH LEVEL OF FUNCTION: Functional Performance Test Results 30 Second Chair Stand Test: 10 reps (no hands) TREATMENT: Therapeutic Exercise: 1: SciFit seat 15, level 1 x 5 minutes. (Discussed progress towards goals and daily function duringthis time.) 2: Sit to stand from lowest setting large mat table 17.5 inches from floor 1x12 3: Standing B hip abduction, flexion and extension 2x10 each 4: Supine bridging 2x10 5: 30 second sit to stand for mat table 17.5 inches from floor x 10 Skilled Intervention: Patient was educated in proper exercise technique and purpose for exercises. Skilled judgment was provided in selection of appropriate interventions. Correct performance of therapeutic exercises was facilitated with verbal cuing. Neuromuscular Re-Education: 1: Lateral stepping over and back AirEx pad 1x10 each direction with UE assist 2: Forward alternate steps upe AirEx pad 1x10 leading with each leg. 3: High knee marching at // bars 1 UE assist 2x10 Skilled Intervention: Skilled judgment used to assess appropriate program for balance and coordination activity. Ensured patient safety with use of gait belt and contact guard assist to minimal assist as needed. Billing Therapeutic Exercise Treatment Minutes: 25 Neuromuscular Re-Education Treatment Minutes: 15 Total Treatment Time Minutes (timed/untimed): 40 Karen Weber, ARTIST CONSULTANT Rosa Elena Poon PT documented in this encounterAdams County [facility]08-29-2022 History of Present illness Narrative* Rosa Elena Poon PT - 03/12/2022 2:26 PM EDT Episode Visit Count: 15 Therapist That Will Oversee The Plan Of Care: Rosa Elena Poon Start of Care Date: 01/12/22 Onset Date: 12/28/21 Plan of Care Certification Date: 03/09/22 Next Certification Due Date: 03/23/22 Patient Identified by Name and Date of : Yes REHABILITATION AND SPORTS THERAPY PHYSICAL THERAPY TREATMENT NOTE ASSESSMENT: Richard Roy tolerated the session with fatigue. He demonstrated difficulty with SLSwith no UE assist.. The patient will continue to benefit from ongoing skilled physical therapy to progress toward set goals. PLAN FOR NEXT VISIT: Increase sets with standing hip exercises. SUBJECTIVE: Patient Reason for Visit: Patient denies falls and pain. He reports feeling good. Pain: Pain Pain Level: 0 Post Treatment Pain Post Treatment Pain Level: 0 OBJECTIVE MEASURES WITH LEVEL OF FUNCTION: SLS right x 2 seconds and SLS left x 3 seconds. TREATMENT: Therapeutic Exercise: 1: SciFit seat 15, level 1 x 5 minutes. (Discussed progress towards goals and daily function duringthis time.) 2: Sit to stand from lowest setting large mat table 17.5 inches from floor 2x10 3: Standing B hip abduction, flexion and extension 1x10 each 4: *Supine bridging 2x10 Skilled Intervention: Patient was educated in proper exercise technique and purpose for exercises. Reviewed and educated patient on additions/changes for home exercise program as above (*). Skilled judgment was provided in selection of appropriate interventions. Provided written instruction for home exercise program to facilitate proper performance and compliance. Correct performance of therapeutic exercises was facilitated with verbal and visual cuing. Neuromuscular Re-Education: 1: Forward and backward stepping over 6 gustavo with 1 UE assist x 12 each leading with R and L foot 2: BOSU step taps 1x 10 each foot with 1 UE assist and 1x10 with no UE assist 3: high knee marching 4 x length of parallel bars 4: SLS right 2 second and left 3 seconds with no UE assist. and multiple attmepts with 1 UE assist left and right. 5: Balance board lateral weight shifting 2x10 each direction with no UE assist. 6: Balance board lateral balancing to fatigue. Skilled Intervention: Skilled judgment used to assess appropriate program for balance and coordination activity. Ensured patient safety with use of gait belt and contact guard assist to minimal assist as needed. Billing Therapeutic Exercise Treatment Minutes: 18 Neuromuscular Re-Education Treatment Minutes: 23 Total Treatment Time Minutes (timed/untimed): 41 ALISIA Whiting PT documented in this encounterAdams County [facility] Center08-26-2022 Miscellaneous Notes* Addendum Note - Rosa Elena Poon PT - 03/09/2022 1:18 PM EDTAddended by: ROSA ELENA POON on: 03/09/2022 01:18 PM Modules accepted: Orders documented in this encounterAdams [facility]08-26-2022 History of Present illness Narrative* Rosa Elena Poon PT - 03/09/2022 10:32 AM EDT Episode Visit Count: 14 Therapist That Will Oversee The Plan Of Care: Rosa Elena Poon Start of Care Date: 01/12/22 Onset Date: 12/28/21 Plan of Care Certification Date: 03/09/22 Next Certification Due Date: 03/23/22 Patient Identified by Name and Date of : Yes REHABILITATION AND SPORTS THERAPY PHYSICAL THERAPY PROGRESS REPORT PLAN OF CARE UPDATE: Assessment: Richard Roy demonstrates improvements in activity endurance, rising from a chair, standing, and walking. He has progressed toward goals. Patient continues to present with impairments in balance and strength that interfere with walking in the community . Current prognosis is Good dueto: current objective clinical presentation;positive past response to therapy;good support system/ coping skills . He will benefit from continued skilled therapy services to meet the updated goals for this plan of care as noted below. Goals for Episode of Care: created on 01/12/22 through 03/15/22 Goals updated on 03/09/2022. [place] in home exercise program. (Met) Patient will demonstrate increase in B LE strength to 4+ to 5/5 during manual muscle testing in order to improve function for home management tasks and prior functional tasks. (Partially Met) Normal gait. (Not Met)-improved Patient will report no falls. (Met) Improve score on Timed Up and Go Test to <12 seconds to reflect decreased fall risk. (Not Met) - 12 seconds Improve score on 30 Second Chair Stand to 8-10 repetitions to reflect decreased fall risk. (Met) Improve performance on 4 Stage Balance Test to tandem stance, R SLS, L SLS x 10 sec to reflect decreased fall risk. (Partially Met)- met for tandem stance, not SLS. Patient Goals: Pt states he would like to be able to stand for longer periods of time. Planned Interventions, Frequency, and Duration: 2x/week, 2 weeks Total Number of Visits Planned: 4 Patient to be seen for Therapeutic exercise ([id number]);Neuromuscular re-education ([id number]);Gait Training ([id number]);Patient/Family/Caregiver Education PLAN FOR NEXT VISIT: Add bridging ex and if tolerates well, add to HEP. SUBJECTIVE: Patient Reason for Visit: Pt states he did not have any issues after last session. He notes he was not any more tired later in the day. He notes he has been purposely drinking more water through the day to avoid dehydration. Functional Limitations: walking in the community Pain: Pain Pain Level: 0 Post Treatment Pain Post Treatment Pain Level: 0 PROMIS Scales T-scores: mean of general population = 50. 5 points is clinically meaningfully difference Percentiles provide an indication of how the patient's score ranks in relation to the general population. Higher percentile rankings indicate better function/quality of life. 50th percentile is the average of the general population and indicates half of respondents had a worse score. T-scores: mean of general population = 50. 5 points is clinically meaningfully difference Percentiles provide an indication of how the patient's score ranks in relation to the general population. Higher percentile rankings indicate better function/quality of life. 50th percentile is the average of the general population and indicates half of respondents had a worse score. OBJECTIVE MEASURES WITH LEVEL OF FUNCTION: LE Strength R Hip Flexion (L2): 4+/5 R Hip ABduction: 4/5 R Hip ADduction: 5/5 R Knee Extension (L3): 4+/5 R Knee Flexion: 5/5 R Ankle Dorsiflexion (L4): 4+/5 R Ankle Plantar Flexion: 5/5 L Hip Flexion (L2): 4+/5 L Hip ABduction: 4/5 L Hip ADduction: 5/5 L Knee Extension (L3): 4+/5 L Knee Flexion: 5/5 L Ankle Dorsiflexion (L4): 4+/5 L Ankle Plantar Flexion: 5/5 Mobility Sit To Stand: Independent (without UE assist) Balance Single Leg Stance: R LE 2 sec, L LE 3 sec Functional Performance Test Results 30 Second Chair Stand Test: 9 reps (no UE assist) Timed Up and Go (sec): 12 sec (no assistive device) TREATMENT: Therapeutic Exercise: 1: SciFit seat 15, level 1 x 5 minutes. (Discussed progress towards goals and daily function duringthis time.) 2: standing hip abduction 2 x10 each leg 3: Sit to stand from chair, no UE assist, 17.5 inches from floor 1x9 (30 sec), 1x12 (untimed) Skilled Intervention: Patient was educated in proper exercise technique and purpose for exercises. Reviewed and educated patient on additions/changes for home exercise program. Pt to continue to progress reps/sets of exercises as strength increases. Skilled judgment was provided in selection of appropriate interventions. Correct performance of therapeutic exercises was facilitated with verbal and visual cuing. Patient education as noted. Neuromuscular Re-Education: 1: Forward and backward stepping over 6 gustavo with 1 UE assist x 12 each leading with R and L foot 2: BOSU step taps 2x 10 each foot 3: high knee marching 4 x length of parallel bars 4: SLS to fatigue with each leg twice Skilled Intervention: Skilled judgment used to assess appropriate program for balance and coordination activity. Education in proprioceptive/kinesthetic awareness during standing and dynamic activities. Ensured patient safety with use of gait belt, parallel bars and therapist CGA to supervision. Patient education as noted. Billing Therapeutic Exercise Treatment Minutes: 17 Neuromuscular Re-Education Treatment Minutes: 25 Total Treatment Time Minutes (timed/untimed): 42 Rosa Elena Lemon, PT documented in this encounterAdams [facility] Center08-24-2022 Miscellaneous Notes* Telephone Encounter - Amada Cohn Ma - 03/07/2022 2:35 PM EDT Pt notified and voiced understanding. Tracker and med list updated. Amada Cohn Ma * Telephone Encounter - Abdulaziz Caldera MD - 03/07/2022 2:32 PM EDT INR in good range. Continue current regimen. Recheck in 2 weeks. * Telephone Encounter - Madison Ma Cma - 03/07/2022 2:22 PM EDT Last INR: PT INR 2.9 03/07/2022 Current dose of coumadin is: 10 mg on Mon and Wed and 7.5 mg all other days. Last date of dose change: ?. Previous INR (date and result): 2.8 on 08/30/21 Additional Clinical Information or narrative: yes: patient noncompliant with testing Madison Ma Cma documented in this encounterAdams [facility]08-24-2022 Instructions* Patient Instructions* Abdulaziz Caldera MD - 03/07/2022 11:45 AM EDT Please take 2,000 units of vitamin D daily over the counter. documented in this encounterAdams County [facility] Center08-24-2022 History of Present illness Narrative* Abdulaziz Caldera MD - 03/07/2022 11:19 AM EDT Chief Complaint Patient presents with: 6 Month Exam ER F/U HPI Richard Roy is a 76 year old male who presents here today for ER Follow Up.. Patient evaluated at [facility] ED on 03/02 for complaint of weakness which started after leaving physical therapy. Had to be helped to the car by his daughter and grand daughter and he fell to his knees while trying to get into the car. Faustino pin the ED showed normal neuro exam NIH 0, metabolic workup shoed minor leukocytosis of 11.2. INR elevated at 4.4. creatinine elevated to 1.48 and urine was dark with [address] brain negative/normal. Given 500 cc bolus and attributed symptoms to dehydration. Advised him to reduce coumadin to 1 pill a day for 2 days, then resume dosing and follow up with our office this week. Since discharge, patient has been drinking more water, up to 3-4 glasses of milk, water or iced tea. Has not had any recurrent episodes or syncope. Denies fever, chills, lightheadedness/dizziness, nausea, vomiting, diarrhea, chest, pain, slurred speech, vision, changes, facial, weakness, numbness/tingling. Reduced his coumadin as recommended and is due for INR today. Denies bleeding symptoms. Has not been compliant with getting his INR checked. Last was 6 months ago. Past medical history, appointments, medications, allergies reviewed. Previous Medical History PAST MEDICAL HISTORY Diagnosis Date Cholelithiasis 09/25/2013 Chronic neutrophilia Benign-Dr. 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 ([facility]) 05/25/2018 History of transfusion Hyperlipidemia LDL goal < 100 04/01/2012 Pulmonary embolus, right ([facility]) 09/25/2013 Status post aortic valve repair 2004 Thoracic aneurysm without mention of rupture Type 2 diabetes mellitus with stage 3 chronic kidney disease, with long-term current use of insulin([facility]) 06/20/2016 Vitamin D deficiency 01/03/2022 Previous Surgical History PAST SURGICAL HISTORY Procedure Laterality Date ABDOMINAL SURGERY HX AMPUTATION METATARSAL+TOE,SINGLE Right 05/25/2018 with delayed closure on 05/28/18. Dr. Obregon at [facility] COLONOSCOPY 10/10/2021 repeat in 3 years COLONOSCOPY FLX DX W/COLLJ SPEC WHEN PFRMD 03/12/2011 DEBRIDEMENT OF SKIN, FULL THIC 09/12/2010 LEFT GROIN DEBRIDEMENT OPEN WOUND 20 SQ CM/< 11/22/2010 Debridement posterior neck/I&D LLQ abd DEBRIDEMENT SUBCUTANEOUS TISSUE 20 SQ CM/< 09/11/2010 LEFT GROIN ESOPHAGOGASTRODUODENOSCOPY TRANSORAL DIAGNOSTIC 01/11/2019 EGD HEART SURGERY HX INCISION & DRAINAGE ABSCESS SIMPLE/SINGLE 09/08/2010 I&D abscess left groin INCISION & DRAINAGE ABSCESS SIMPLE/SINGLE 10/23/2010 I&D medial to left groin wound INCISION & DRAINAGE ABSCESS SIMPLE/SINGLE 01/22/2011 I&D LLQ superficial abscess REM LESION TRUNK,ARM, LEG <0.5 CM 03/21/2011 Exc. fibroepithelial polyp LLQ abd REVISION OF AORTIC VALVE 2004 Repair of Aortic Value/Thoracic anerusym repair SKIN BIOPSY HX Family History FAMILY HISTORY Problem Relation Age of Onset No Known Problems Mother Heart Father Bypass and valve replaced Breast Cancer Sister No Known Problems Brother No Known Problems Son No Known Problems Son Patient Allergies ALLERGIES Allergen Reactions Pantoprazole Diarrhea Current Medications Current Outpatient Medications on File Prior to Visit Medication Sig insulin needles, DISPOSABLE, (BD INSULIN PEN NEEDLE UF) 31 gauge x 5/16 1 Each four times daily. With insulin insulin glargine (LANTUS SOLOSTAR U-100 INSULIN) 100 unit/mL (3 mL) Inject 24 Units subcutaneously daily at bedtime. losartan (COZAAR) 50 mg tablet Take 1 tablet by mouth once daily. B cmplx 4/vit D3/C/folic/zinc (VITAL-D RX ORAL) Take by mouth one time a week. cholecalciferol, Vitamin D3, (VITAMIN D3) 1,250 mcg (50,000 unit) cap capsule Take 1 capsule by mouth one time a week. tamsulosin (FLOMAX) 0.4 mg Take 1 capsule by mouth daily at bedtime. warfarin (COUMADIN) 5 mg tablet 10 mg Saturday and Saturday, 7.5 mg all other days. Patient has INR drawn bi-weekly. metoprolol succinate ER (TOPROL XL) 200 mg 24 hr tablet Take 1 tablet by mouth once daily. dulaglutide (TRULICITY) 1.5 mg/0.5 mL pen injector Inject 1.5 mg subcutaneously one time a week. Inject once per week. Discard Pen After atorvastatin (LIPITOR) 40 mg tablet TAKE 1 TABLET BY MOUTH ONCE DAILY. FOR CHOLESTEROL. blood sugar diagnostic ([employer] ULTRA TEST) test strip Test blood sugar(s) 3 times daily. Dx: E11.49. Insulin: Yes Docusate Sodium 100 mg tab Take 100 mg by mouth once daily. insulin aspart U-100 (NOVOLOG FLEXPEN U-100 INSULIN) 100 unit/mL (3 mL) Inject with meals accordingto sliding scale: 100-200=3 units, 201-250=5 units, 251- 300=8 units, 301-350=12 units, 351-400=15 units. metFORMIN ER (GLUCOPHAGE XR) 500 mg 24 hr tablet Take 2 tablets by mouth twice daily with meals. Current Facility-Administered Medications on File Prior to Visit Medication perflutren lipid microspheres 1.3 mL in NaCl (PF) 0.9% 10 mL injection (DEFINITY) sodium chloride 0.9 % (flush) 10 mL (BD POSIFLUSH) Social History Social History Tobacco Use Smoking status: Never Smokeless tobacco: Never Vaping Use Vaping Use: Never used Substance Use Topics Alcohol use: No Drug use: No Review of Symptoms REVIEW OF SYSTEMS See HPI EXAM: BP 118/70 Pulse 64 Resp 16 Wt 114.8 kg (253 lb) BMI 33.38 kg/m General Appearance: Well appearing, alert, in no acute distress, well-hydrated, well nourished.. Skin: Skin color, texture, turgor normal, no suspicious rashes or lesions. Lungs: Lungs clear to auscultation. No wheezing, rhonchi, rales.. Heart: RRR without murmur, gallop, or rubs. No ectopy. Neurologic: Negative findings: speech normal, mental status intact, cranial nerves 2-12 intact, muscle tone normal, muscle strength normal, sensation to light touch and pinprick normal, reflexes normal and symmetric. Health Maintenance List DTAP,TDAP,TD(3 - Td or Tdap) due on 12/25/2020 ADVANCE DIRECTIVE DISCUSSION Never done DIABETIC FOOT EXAM due on 11/23/2021 DILATED RETINAL EXAM due on 02/20/2022 INFLUENZA(1) due on 03/15/2022 HBA1C due on 09/02/2022 LDL CHOLESTEROL due on 01/01/2023 ANNUAL PCP TEAM CHRONIC DISEASE VISIT due on 01/01/2023 SERUM CREATININE due on 01/01/2023 URINE ALBUMIN:CREATININE RATIO due on 03/02/2023 BP CONTROLLED (<130/80) due on 03/05/2023 DEPRESSION SCREENING due on 03/07/2023 COLORECTAL CANCER SCREENING due on 10/10/2024 HEPATITIS C SCREENING Completed SHINGRIX VACCINE Completed COVID-19 VACCINE Completed PNEUMOCOCCAL: 65+ Completed Data reviewed Component Latest Ref Rng & Units 01/01/2022 03/02/2022 WBC 3.70 - 11.00 k/uL 12.47 (H) RBC 4.20 - 6.00 m/uL 5.46 Hemoglobin 13.0 - 17.0 g/dL 14.5 Hematocrit 39.0 - 51.0 % 46.6 MCV 80.0 - 100.0 fL 85.3 MCH 26.0 - 34.0 pg 26.6 MCHC 30.5 - 36.0 g/dL 31.1 RDW-CV 11.5 - 15.0 % 14.5 Platelet Count 150 - 400 k/uL 287 MPV 9.0 - 12.7 fL 9.7 Neut% % 73.8 Abs Neut (ANC) 1.45 - 7.50 k/uL 9.20 (H) Lymph% % 14.5 Abs Lymph 1.00 - 4.00 k/uL 1.81 [place]% % 6.9 Abs [place] <0.87 k/uL 0.86 Eosin% % 3.1 Abs Eosin <0.46 k/uL 0.39 Baso% % 0.5 Abs Baso <0.11 k/uL 0.06 Immature Gran % % 1.2 IMMATURE GRANS (ABS) <0.10 k/uL 0.15 (H) NRBC /100 WBC 0.0 Absolute nRBC <0.01 k/uL <0.01 DTYPE Auto Protein, Total 6.3 - 8.0 g/dL 6.6 Albumin 3.9 - 4.9 g/dL 4.2 Calcium 8.5 - 10.2 mg/dL 9.4 Bilirubin, Total 0.2 - 1.3 mg/dL 0.6 Alkaline Phosphatase 38 - 113 U/L 96 AST 14 - 40 U/L 20 ALT 10 - 54 U/L 29 Glucose 74 - 99 mg/dL 118 (H) BUN 9 - 24 mg/dL 15 Creatinine 0.73 - 1.22 mg/dL 1.20 Sodium 136 - 144 mmol/L 138 Potassium 3.7 - 5.1 mmol/L 4.4 Chloride 97 - 105 mmol/L 101 CO2 22 - 30 mmol/L 25 Anion Gap 9 - 18 mmol/L 12 eGFR >=60 mL/min/1.73m 63 Cholesterol, Total <200 mg/dL 118 Triglyceride <150 mg/dL 141 HDL Cholesterol >39 mg/dL 35 (L) Non HDL Cholesterol <130 mg/dL 83 Fasting Time hrs 12 VLDL Cholesterol <30 mg/dL 28 TC:HDL Ratio <5.10 3.37 LDL Cholesterol <100 mg/dL 55 LDL:HDL Ratio <2.54 1.57 Creatinine, Ur Random (UCRR) 20.0 - 300.0 mg/dL 161.8 Albumin, Urine Random mg/L 23.8 Albumin/Creat Ratio <30 mg/g 15 Hemoglobin A1C 4.3 - 5.6 % 6.4 (H) Estimated Average Glucose mg/dL 137 Vitamin D 25 Hydroxy 31.0 - 80.0 ng/mL 14.4 (L) 34.2 Vitamin B12 232-1,245 pg/mL 377 PSA Screening <2.60 ng/mL 1.75 ASSESSMENT/PLAN: 1. Generalized weakness - ICD9: 780.79, ICD10: R53.1 (primary diagnosis) Resolved. Likely 2/2 dehydration. Recommended he cut out caffeine and drink at least 5-6 glasses ofwater per day. Red flags for re-assessment reviewed with patient in detail. 2. Supratherapeutic INR - ICD9: 790.92, ICD10: R79.1 Repeat INR today. Discussed importance of getting INR checked regularly. - PROTHROMBIN TIME/PT 3. ANTHONY (acute kidney injury) (HCC) - ICD9: 584.9, ICD10: N17.9 Repeat CMP. Push PO fluids. Low sodium diet. - COMP METABOLIC PANEL Abdulaziz Caldera MD documented in this encounterAd[facility]08-22-2022 History of Present illness Narrative* Rosa Elena Poon, PT - 03/05/2022 12:46 PM EDT Episode Visit Count: 13 Therapist That Will Oversee The Plan Of Care: Rosa Elena Poon Start of Care Date: 01/12/22 Onset Date: 12/28/21 Plan of Care Certification Date: 01/12/22 Next Certification Due Date: 03/15/22 Patient Identified by Name and Date of : Yes REHABILITATION AND SPORTS THERAPY PHYSICAL THERAPY TREATMENT NOTE ASSESSMENT: Richard Roy tolerated the session with decreased endurance, fatigue, and expected muscle soreness. He demonstrated difficulty with new exercise d/t R foot placement tending to step onto instep or heel of L foot. General decrease in endurance today. The patient will continue to benefit from ongoing skilled physical therapy for reassessment by supervising therapist. PLAN FOR NEXT VISIT: POC update. SUBJECTIVE: Patient Reason for Visit: Pt and report that pt got out to car after last visit and had difficulty getting into the car d/t leg weakness. He states he then was seen in the ER and hadmultiple testing done which was all negative. (checking for stroke, COVID, heart issues, etc.) He was told all of the testing was negative and, they couldn't find anything wrong, so they think I was just dehydrated. Pt notes the only thing he has felt since (over the weekend) is sore muscles in both upper thighs and general fatigue. He denies any lightheadedness, shortness of breath, blacking out, headache or chest pains. He states he is scheduled to follow up with his family doctor tomorrow. Pain: Pain Pain Level: 0 Post Treatment Pain Post Treatment Pain Level: 0 OBJECTIVE MEASURES WITH LEVEL OF FUNCTION: Pt requested increased frequency of rest periods today between activities d/t fatigue. TREATMENT: Therapeutic Exercise: 1: SciFit seat 15, level 1 x 5 minutes. (Monitored for symptoms and pt denies throughout. Continuedsubjective report during this time as well.) 2: standing hip abduction x10 each leg 3: standing hamstring curls x 10 each leg Skilled Intervention: Patient was educated in proper exercise technique and purpose for exercises. Skilled judgment was provided in selection of appropriate interventions. Correct performance of therapeutic exercises was facilitated with verbal and visual cuing. Patient education as noted. Neuromuscular Re-Education: 1: Forward and backward stepping over 6 gustavo with 1 UE assist x 10 each leading with R and L foot 2: high knee marching 4 x length of parallel bars 3: BOSU step taps 2x 10 each foot 4: lateral stepping over 2 x 4 with focus on foot placement and symmetrical weight bearing x 10 each direction 5: Educated pt and on car transfer techniques including sitting first, and then lifting one leg at a time into car, and reversing this method to exit. Skilled Intervention: Skilled judgment used to assess appropriate program for balance and coordination activity. Education in proprioceptive/kinesthetic awareness during standing and dynamic activities. Ensured patient safety with use of gait belt, parallel bars, and therapist supervision to CGA. Patient education as noted. Billing Therapeutic Exercise Treatment Minutes: 15 Neuromuscular Re-Education Treatment Minutes: 25 Total Treatment Time Minutes (timed/untimed): 40 Rosa Elena Poon PT documented in this encounterAd[facility]08-19-2022 History of Present illness Narrative* Rosa Elena Poon PT - 03/02/2022 1:01 PM EDT Episode Visit Count: 12 Therapist That Will Oversee The Plan Of Care: Rosa Elena Poon Start of Care Date: 01/12/22 Onset Date: 12/28/21 Plan of Care Certification Date: 01/12/22 Next Certification Due Date: 03/15/22 Patient Identified by Name and Date of : Yes REHABILITATION AND SPORTS THERAPY PHYSICAL THERAPY TREATMENT NOTE ASSESSMENT: Richard Roy tolerated the session with fatigue and expected muscle soreness. He demonstrated difficulty with general and LE fatigue towards end of exercises today. The patient will continue to benefit from ongoing skilled physical therapy to progress toward set goals. PLAN FOR NEXT VISIT: May assess TUG or SLS. POC update 03/09. SUBJECTIVE: Patient Reason for Visit: Pt reports no fatigue or complaints following previous session. He notes eating a big lunch prior to this appt and is feeling a little more overall fatigued today. Pain: Pain Pain Level: 0 Post Treatment Pain Post Treatment Pain Level: 0 OBJECTIVE MEASURES WITH LEVEL OF FUNCTION: Pt demonstrated decreased UE assist during BOSU and balance board activities. TREATMENT: Therapeutic Exercise: 1: Sit to stand from chair, no UE assist, 17.5 inches from floor 1x15, 1 x 11 2: Seated hip abduction blue band 2x20 3: standing hip abduction x10 each leg 4: standing hamstring curls x 10 each leg 5: SciFit seat 15, level 2 x 5 minutes. (Discussed pt progress and activities at home including time spent in sitting through the day.) Skilled Intervention: Patient was educated in proper exercise technique and purpose for exercises. Reviewed and educated patient on additions/changes for home exercise program. Skilled judgment was provided in selection of appropriate interventions. Correct performance of therapeutic exercises was facilitated with verbal and visual cuing. Patient education as noted. Neuromuscular Re-Education: 1: Forward and backward stepping over 6 gustavo with 1 UE assist x 10 each leading with R and L foot 2: high knee marching 4 x length of parallel bars 3: Balance board lateral weight shifting 2x10 each direction with no UE assist. 4: Balance board lateral balancing to fatigue. 5: BOSU step taps 2x 10 each foot Skilled Intervention: Skilled judgment used to assess appropriate program for balance and coordination activity. Education in proprioceptive/kinesthetic awareness during standing and dynamic activities. Ensured patient safety with use of gait belt, parallel bars and therapist assist. Patient education as noted. Billing Therapeutic Exercise Treatment Minutes: 20 Neuromuscular Re-Education Treatment Minutes: 25 Total Treatment Time Minutes (timed/untimed): 45 Rosa Elena Poon PT documented in this encounterAdams [facility]08-15-2022 History of Present illness Narrative* Rosa Elena Poon PT - 02/26/2022 4:19 PM EDT Episode Visit Count: 11 Therapist That Will Oversee The Plan Of Care: Rosa Elena Poon Start of Care Date: 01/12/22 Onset Date: 12/28/21 Plan of Care Certification Date: 01/12/22 Next Certification Due Date: 03/15/22 Patient Identified by Name and Date of : Yes REHABILITATION AND SPORTS THERAPY PHYSICAL THERAPY TREATMENT NOTE ASSESSMENT: Richard Roy tolerated the session with fatigue and expected muscle soreness. He demonstrated improvements in SLS and ease of sit to stand from low seat (plinth). The patient will continue to benefit from ongoing skilled physical therapy to progress toward set goals. PLAN FOR NEXT VISIT: SUBJECTIVE: Patient Reason for Visit: Pt reports he was tired for a little bit afterwards, but thenwas fine. [place] he was able to do the new home exercises at home without any issue. Pain: Pain Pain Level: 0 Post Treatment Pain Post Treatment Pain Level: 0 OBJECTIVE MEASURES WITH LEVEL OF FUNCTION: Balance Single Leg Stance: R LE 2 sec, L LE 3 sec TREATMENT: Therapeutic Exercise: 1: SciFit seat 15, level 2 x 5 minutes. 2: Seated hip abduction blue band 2x20 3: Sit to stand from mat table 17 inches from floor 2x10 4: standing hip abduction x10 each leg 5: standing hamstring curls x 10 each leg 6: standing hip flex x 10 each leg (goal of lifting knee to height of parallel bars each time) Skilled Intervention: Patient was educated in proper exercise technique and purpose for exercises. Reviewed and educated patient on additions/changes for home exercise program. Skilled judgment was provided in selection of appropriate interventions. Correct performance of therapeutic exercises was facilitated with verbal and visual cuing. Patient education as noted. Neuromuscular Re-Education: 1: Forward and backward stepping over 6 gustavo with 1 UE assist x 10 each leading with R and L foot (verbal cues to avoid R foot landing on instep of L foot) 2: BOSU step taps 2x 10 each foot 3: Balance board A/P and lateral weight shifting 2x10 each direction with no UE assist. 4: Balance board lateral and A/P balancing to fatigue. Skilled Intervention: Skilled judgment used to assess appropriate program for balance and coordination activity. Education in proprioceptive/kinesthetic awareness during standing and dynamic activities. Insured patient safety with use of parallel bars, gait belt and therapist assist. Patient education as noted. Billing Therapeutic Exercise Treatment Minutes: 25 Neuromuscular Re-Education Treatment Minutes: 20 Total Treatment Time Minutes (timed/untimed): 45 Rosa Elena Poon PT documented [facility]Ad[facility] History of Present illness Narrative* Rosa Elena Poon PT - 02/23/2022 4:20 PM EDT Episode Visit Count: 10 Therapist That Will Oversee The Plan Of Care: Rosa Elena Poon Start of Care Date: 01/12/22 Onset Date: 12/28/21 Plan of Care Certification Date: 01/12/22 Next Certification Due Date: 03/15/22 Patient Identified by Name and Date of : Yes REHABILITATION AND SPORTS THERAPY PHYSICAL THERAPY TREATMENT NOTE ASSESSMENT: Richard Roy tolerated the session with fatigue. He demonstrated difficulty with forward and backward stepping over 6 gustavo with 1 UE assist and improvement with balance on Balance board in lateral position.. The patient will continue to benefit from ongoing skilled physical therapy to progress toward set goals. PLAN FOR NEXT VISIT: REview newly added standing exercises for home program SUBJECTIVE: Patient Reason for Visit: Patient reports he is feeling run down today. He reports doing home exercises during the day. Pain: Pain Pain Level: 0 Post Treatment Pain Post Treatment Pain Level: 0 OBJECTIVE MEASURES WITH LEVEL OF FUNCTION: Difficulty with forward and backward stepping over 6 gustavo with 1 UE assist. TREATMENT: Therapeutic Exercise: 1: SciFit seat 15, level 2 x 5 minutes. 2: Seated hip abduction blue band 2x20 3: Step ups onto 4 step 2 x 5 reps leading with each leg 4: Sit to stand from mat table 17 inches from floor 2x10 5: *Standing B hip abduction, flexion and hamstring curls 1x10 each (short rest break between exercises) Skilled Intervention: Patient was educated in proper exercise technique and purpose for exercises. Skilled judgment was provided in selection of appropriate interventions. Provided written instruction for home exercise program to facilitate proper performance and compliance. Correct performance of therapeutic exercises was facilitated with verbal and visual cuing. Neuromuscular Re-Education: 1: Forward and backward stepping over 6 gustavo with 1 UE assist x 10 each leading with R and L foot 2: BOSU step taps 2x 10 each foot 3: Balance board A/P and lateral weight shifting 2x10 each direction with no UE assist. 4: Balance board lateral and A/P balancing to fatigue. Skilled Intervention: Skilled judgment used to assess appropriate program for balance and coordination activity. Insured patient safety with use of gait belt and contact guard assist. Billing Therapeutic Exercise Treatment Minutes: 23 Neuromuscular Re-Education Treatment Minutes: 20 Total Treatment Time Minutes (timed/untimed): 43 ALISIA Whiting PT documented in [facility] encounterAd[facility] History of Present illness Narrative* Rosa Elena Poon PT - 02/14/2022 11:23 AM EDT Episode Visit Count: 9 Therapist That Will Oversee The Plan Of Care: Rosa Elena Poon Start of Care Date: 01/12/22 Onset Date: 12/28/21 Plan of Care Certification Date: 01/12/22 Next Certification Due Date: 03/15/22 Patient Identified by Name and Date of : Yes REHABILITATION AND SPORTS THERAPY PHYSICAL THERAPY TREATMENT NOTE ASSESSMENT: Richard Roy tolerated the session with fatigue and expected muscle soreness. He demonstrated improvements in progression of strengthening and decreased R LE step/placement issues. Thepatient will continue to benefit from ongoing skilled physical therapy to progress toward set goals. PLAN FOR NEXT VISIT: Consider adding standing hip abd, ext, HS curls to HEP if pt does well with these exercises during treatment.Continue with LE strengthening and balance activities. SUBJECTIVE: Patient Reason for Visit: Pt states the leg fatigue at end of last session subsided quickly and he did fine the rest of the day. Pain: Pain Pain Level: 0 OBJECTIVE MEASURES WITH LEVEL OF FUNCTION: Pt did a better job of keeping R foot from landing on instep of L foot (stepping more laterally in shoulder-width foot placement) when stepping during balance activities today. TREATMENT: Therapeutic Exercise: 1: SciFit seat 15, level 2 x 5 minutes. 2: Seated hip abduction green band 2x25 3: Step ups onto 4 step 2 x 5 reps leading with each leg 4: Sit to stand from chair 2x10 Skilled Intervention: Patient was educated in proper exercise technique and purpose for exercises. Reviewed and educated patient on additions/changes for home exercise program. Skilled judgment was provided in selection of appropriate interventions. Correct performance of therapeutic exercises was facilitated with verbal and visual cuing. Patient education as noted. Neuromuscular Re-Education: 1: Forward and backward stepping over 6 gustavo with 1 UE assist x 10 each leading with R and L foot 2: BOSU step taps x 10 each foot 3: Balance board A/P and lateral weight shifting 2x10 each direction with no UE assist. 4: Balance board lateral and A/P balancing to fatigue. Skilled Intervention: Skilled judgment used to assess appropriate program for balance and coordination activity. Education in proprioceptive/kinesthetic awareness during standing and dynamic activities. Insured patient safety with use of gait belt, parallel bars and therapist CGA. Patient education as noted. Billing Therapeutic Exercise Treatment Minutes: 20 Neuromuscular Re-Education Treatment Minutes: 27 Total Treatment Time Minutes (timed/untimed): 47 Rosa Elena Poon PT documented in this encounterAd[facility]07-29-[facility] History of Present illness Narrative* Rosa Elena Poon PT - 02/09/2022 10:38 AM EDT Episode Visit Count: 7 Therapist That Will Oversee The Plan Of Care: Rosa Elena Poon Start of Care Date: 01/12/22 Onset Date: 12/28/21 Plan of Care Certification Date: 01/12/22 Next Certification Due Date: 03/15/22 Patient Identified by Name and Date of : Yes REHABILITATION AND SPORTS THERAPY PHYSICAL THERAPY PROGRESS REPORT PLAN OF CARE UPDATE: Assessment: Rihcard Roy demonstrates difficulty with walking in the community and improvements in walking in the community. He has progressed toward goals. Patient continues to present with impairments in balance, gait and strength that interfere with walking in the community . Current prognosis is Good due to: current objective clinical presentation;good overall health status;within-session changes;good support system/ coping skills . He will benefit from continued skilled therapy servicesto meet the updated goals for this plan of care as noted below. Goals for Episode of Care: created on 01/12/22 through 03/15/22 Goals updated on 02/09/2022. [place] in home exercise program. (Met) Patient will demonstrate increase in B LE strength to 4+ to 5/5 during manual muscle testing in order to improve function for home management tasks and prior functional tasks. (Not Met) Normal gait. (Not Met)-improved Patient will report no falls. (Met) Improve score on Timed Up and Go Test to <12 seconds to reflect decreased fall risk. (Not Met) - 12 seconds Improve score on 30 Second Chair Stand to 8-10 repetitions to reflect decreased fall risk. (Met) Improve performance on 4 Stage Balance Test to tandem stance, R SLS, L SLS x 10 sec to reflect decreased fall risk. (Partially Met)- met for tandem stance, not SLS. Patient Goals: Pt states he would like to be able to stand for longer periods of time. Planned Interventions, Frequency, and Duration: 2x/week, 4 weeks Total Number of Visits Planned: 8 Patient to be seen for Therapeutic exercise (31149);Neuromuscular re-education (93353);Gait Training (03441);Patient/Family/Caregiver Education PLAN FOR NEXT VISIT: Continue to progress strength and balance. May add standing high knee marching, step taps on BOSU, and/or prgoress HEP. SUBJECTIVE: Patient Reason for Visit: Pt stating he doesn't feel he has any problems with walking at home. He feels he is able to stand for longer periods of time now. Functional Limitations: walking in the community Pain: Pain Pain Level: 0 Post Treatment Pain Post Treatment Pain Level: 0 PROMIS Scales T-scores: mean of general population = 50. 5 points is clinically meaningfully difference Percentiles provide an indication of how the patient's score ranks in relation to the general population. Higher percentile rankings indicate better function/quality of life. 50th percentile is the average of the general population and indicates half of respondents had a worse score. T-scores: mean of general population = 50. 5 points is clinically meaningfully difference Percentiles provide an indication of how the patient's score ranks in relation to the general population. Higher percentile rankings indicate better function/quality of life. 50th percentile is the average of the general population and indicates half of respondents had a worse score. OBJECTIVE MEASURES WITH LEVEL OF FUNCTION: LE Strength R Hip Flexion (L2): 4/5 R Hip ABduction: 4/5 R Hip ADduction: 5/5 R Knee Extension (L3): 4+/5 R Knee Flexion: 5/5 R Ankle Dorsiflexion (L4): 4+/5 R Ankle Plantar Flexion: 5/5 L Hip Flexion (L2): 4/5 L Hip ABduction: 4/5 L Hip ADduction: 5/5 L Knee Extension (L3): 4+/5 L Knee Flexion: 5/5 L Ankle Dorsiflexion (L4): 4+/5 L Ankle Plantar Flexion: 4+/5 Gait Gait Device: None General Deviations/Observations: Merari decreased;Step length decreased;Wide base of support Balance Tandem Stance: R LE leading 10 sec, L LE leading 10 sec Single Leg Stance: R LE 0 sec, L LE 0 sec Functional Performance Test Results 30 Second Chair Stand Test: 9 reps (no use of arms) Timed Up and Go (sec): 12 sec (no assistive device) TREATMENT: Therapeutic Exercise: 1: SciFit seat 15, level 2 x 5 minutes. (Discussed pt progress, goals and functional improvements during this time.) 2: Seated hip abduction green band 2x20 3: Sit to stand from chair 2x10 Skilled Intervention: Patient was educated in proper exercise technique and purpose for exercises. Reviewed and educated patient on additions/changes for home exercise program. Skilled judgment was provided in selection of appropriate interventions. Correct performance of therapeutic exercises was facilitated with verbal and visual cuing. Patient education as noted. Neuromuscular Re-Education: 1: Forward and backward stepping over 6 gustavo with 1 UE assist x 10 each direction (1 hand hold as needed on parallel bars and therapist CGA) 2: Balance board A/P and lateral weight shifting 2x10 each direction with no UE assist. 3: Balance board lateral balancing x multiple attmepts. Skilled Intervention: Skilled judgment used to assess appropriate program for balance and coordination activity. Education in proprioceptive/kinesthetic awareness during standing and dynamic activities. Insured patient safety with use of gait belt, parallel bars and therapist assist. Patient education as noted. Billing Therapeutic Exercise Treatment Minutes: 18 Neuromuscular Re-Education Treatment Minutes: 26 Total Treatment Time Minutes (timed/untimed): 44 Rosa Elena Poon PT documented in this encounterAd[facility]07-26-2022 Miscellaneous Notes* Telephone Encounter - Nola Lockhart - 02/06/2022 2:18 PM EDT Patient has been identified by name and date of : Yes Pending Prescriptions Disp Refills PEN NEEDLE, DIABETIC 31 GAUGE X 5/16 120 Each 11 Si Each four times daily. With insulin NUHA: No RX INSTRUCTIONS: Patient aware RX will be sent to pharmacy. No need to notify patient. Nola Castro Pss documented in this encounterAd[facility]07-22-2022 History of Present illness Narrative* Cortney Levin PT - 02/02/2022 2:14 PM EDT Episode Visit Count: 5 Therapist That Will Oversee The Plan Of Care: Rosa Elena Poon Start of Care Date: 01/12/22 Onset Date: 12/28/21 Plan of Care Certification Date: 01/12/22 Next Certification Due Date: 09/01/22 Patient Identified by Name and Date of : Yes REHABILITATION AND SPORTS THERAPY PHYSICAL THERAPY TREATMENT NOTE ASSESSMENT: Richard Roy tolerated the session with no issues. He demonstrated difficulty with forward walking over 6 hurdles with catching toe on hurdles. He is improving with balance on balanceboard.. The patient will continue to benefit from ongoing skilled physical therapy to progress toward set goals. PLAN FOR NEXT VISIT: Add forward step ups onto AirEx pad SUBJECTIVE: Patient Reason for Visit: Patient denies pain or falls. He reports carmen up early as heehad an EEG test this morning. Pain: Pain Pain Level: 0 Post Treatment Pain Post Treatment Pain Level: No Change OBJECTIVE MEASURES WITH LEVEL OF FUNCTION: Difficulty with forward walking over 6 hurdles with catching toe on hurdles. TREATMENT: Therapeutic Exercise: 1: SciFit seat 15, level 2 x 5 minutes. (Education on purpose of this exercises) 2: Seated marching B 2# 2x15 3: Seated LAQ B 2# 2x15 4: Sit to stand from chair 2x10 6: Seated hip abduction green band 2x15 Skilled Intervention: Patient was educated in proper exercise technique and purpose for exercises. Skilled judgment was provided in selection of appropriate interventions. Correct performance of therapeutic exercises was facilitated with verbal cuing. Neuromuscular Re-Education: 1: Forward ambulation over 6, 6 hurdles back and forth x 2 (Difficulty with control with this today) 2: Forward and backward stepping over 6 gustavo with 1 UE assist x 10 each direction 3: Balance board lateral balancing x multiple attmepts. 4: Balance board A/P and lateral weight shifting 2x10 each direction with no UE assist. 5: Semi-tandem stance on AirEx pad right and left with head turns x 30 seconds each direction. Skilled Intervention: Skilled judgment used to assess appropriate program for balance and coordination activity. Insured patient safety with use of gait belt and contact guard assist to minimal assist as needed. Billing Therapeutic Exercise Treatment Minutes: 23 Neuromuscular Re-Education Treatment Minutes: 20 Total Treatment Time Minutes (timed/untimed): 43 ALISIA Whiting, PT documented in this encounterAd[facility]07-21-2022 Miscellaneous Notes* Telephone Encounter - Mila Castro LPN - 02/01/2022 8:20 AM EDT Spoke with pt and he is taking medication weekly. Pt will check with his pharmacy . Mila Castro LPN * Telephone Encounter - Abdulaziz Caldera MD - 01/31/2022 4:57 PM EDT We ordered this on 01/03 so should not be out. Has he been taking it weekly? * Telephone Encounter - Eulalia Codyc - 01/31/2022 4:32 PM EDT Patient has been identified by name and date of : Yes Pending Prescriptions Disp Refills CHOLECALCIFEROL (VITAMIN D3) 1,250 MCG (50,000 UNIT) CAPSULE 12 capsule 0 Sig: Take 1 capsule by mouth one time a week. NUHA: No OMAR-01/02/22 Labs-01/13/22 NOV-07/04/22 RX INSTRUCTIONS: Patient aware RX will be sent to pharmacy. No need to notify patient. [facility]ulalia [facility] documented in this encounterAd[facility]07-19-2022 History of Present illness Narrative* Justina Escoto, PT - 01/30/2022 2:16 PM EDT Episode Visit Count: 4 Therapist That Will Oversee The Plan Of Care: Rosa Elena Poon Start of Care Date: 01/12/22 Onset Date: 12/28/21 Plan of Care Certification Date: 01/12/22 Next Certification Due Date: 03/15/22 Patient Identified by Name and Date of : Yes REHABILITATION AND SPORTS THERAPY PHYSICAL THERAPY TREATMENT NOTE ASSESSMENT: Richard Roy tolerated the session with fatigue. He demonstrated difficulty with lateral step up and over AirEX pad with positioning of feet.. The patient will continue to benefit fromongoing skilled physical therapy to progress toward set goals. PLAN FOR NEXT VISIT: Add forward step ups onto AirEx pad SUBJECTIVE: Patient Reason for Visit: Patient reports taking a nap after laast therapy. He reports doing okay today and denies fallls and pain. Pain: Pain Pain Level: 0 Post Treatment Pain Post Treatment Pain Level: No Change OBJECTIVE MEASURES WITH LEVEL OF FUNCTION: Functional Performance Test Results 30 Second Chair Stand Test: 9 reps TREATMENT: Therapeutic Exercise: 1: SciFit seat 15, level 2 x 5 minutes. (Education on purpose of this exercises) 2: Seated marching B 1.5# 2x12 3: Seated LAQ B 1.5# 2x12 5: Sit to stand form chair 1x 10 reps 6: Seated hip abduction green band 2x12 7: 30 second sit to stand from chair x 8 reps Skilled Intervention: Patient was educated in proper exercise technique and purpose for exercises. Skilled judgment was provided in selection of appropriate interventions. Correct performance of therapeutic exercises was facilitated with verbal cuing. Neuromuscular Re-Education: 1: NBOS on AirEx pad eyes open 2x30 seconds. 2: Semi-tandem stand standing on AirEx pad leading with right and left x 40 seconds each 3: Tandem stance on leve leading with right and left x 30 seconds each 4: Balance board A/P and lateral weight shifting 2x10 each direction with no UE assist. 5: AirEx pad marching in place with 1 UE assist 2x10 6: AirEx pad lateral step up and over with UE assist 1x10 each direction. (cueing for proper foot placement) Skilled Intervention: Skilled judgment used to assess appropriate program for balance and coordination activity. Insured patient safety with use of gait belt and contact guard assist to minimal assist as needed Billing Therapeutic Exercise Treatment Minutes: 23 Neuromuscular Re-Education Treatment Minutes: 20 Total Treatment Time Minutes (timed/untimed): 43 ALISIA Whiting PT documented in this encounterAd[facility]07-12-2022 Miscellaneous Notes* Telephone Encounter - Rebecca Gonzales RN - 01/23/2022 5:42 PM EDT Patient has been identified by name and date of : Yes Patient phones for refill(s): Pending Prescriptions Disp Refills LOSARTAN 50 MG TABLET 90 tablet 3 Sig: Take 1 tablet by mouth once daily. NUHA: No CHOLECALCIFEROL (VITAMIN D3) 1,250 MCG (50,000 UNIT) CAPSULE 12 capsule 11 Sig: Take 1 capsule by mouth one time a week. NUHA: No Date of last office visit in primary care: 01/01/22 Last 2 Encounter Wt Readings: Date: Wt: 01/05/2022 111.6 kg (246 lb) 01/01/2022 111.8 kg (246 lb 6.4 oz) Previous labs/tests for medication: Not applicable Please advise. patient only needs called if problem with refilling medication Thank you. Rebecca Gonzales RN documented in this encounterAd[facility]07-12-2022 History of Present illness Narrative* Chiki Byrd, PT - 01/23/2022 3:25 PM EDT Episode Visit Count: 2 Therapist That Will Oversee The Plan Of Care: Rosa Elena Poon Start of Care Date: 01/12/22 Onset Date: 12/28/21 Plan of Care Certification Date: 01/12/22 Next Certification Due Date: 03/15/22 Patient Identified by Name and Date of : Yes REHABILITATION AND SPORTS THERAPY PHYSICAL THERAPY TREATMENT NOTE ASSESSMENT: Richard Roy tolerated the session with no issues. He demonstrated good tolerance toseated exercises and balance activities. Slight fatigue noted at end of treatment.. The patient will continue to benefit from ongoing skilled physical therapy to progress toward set goals. PLAN FOR NEXT VISIT: Progress balance activities SUBJECTIVE: Patient Reason for Visit: Patient denies falls and denies pain. Patient reports doing exercises off and on during the day. Pain: Pain Pain Level: 0 Post Treatment Pain Post Treatment Pain Level: No Change OBJECTIVE MEASURES WITH LEVEL OF FUNCTION: Patient was challenged with tandem stance on level surface leading with right and left leg. TREATMENT: Therapeutic Exercise: 1: SciFit seat 15, level 2 x 5 minutes. (Education on purpose of this exercises) 2: Seated marching B 1.5# 2x10 3: Seated LAQ B 1.5# 2x10 4: Seated heel and toe raises 2x10 5: Sit to stand form 17 mat table x 6: *Seated hip abduction green band 2x10 (vended gree band for home) Skilled Intervention: Patient was educated in proper exercise technique and purpose for exercises. Reviewed and educated patient on additions/changes for home exercise program as above (*). Skilled judgment was provided in selection of appropriate interventions. Provided written instruction for home exercise program to facilitate proper performance and compliance. Correct performance of therapeutic exercises was facilitated with verbal and visual cuing. Neuromuscular Re-Education: 1: NBOS on AirEx pad eyes open 2x30 seconds. 2: Semi-tandem stand standing on AirEx pad leading with right and left x 30 seconds each 3: Tandem stance on leve leading with right and left x 30 seconds each with difficulty with this. 4: Balance board A/P and lateral weight shifting 2x10 each direction with no UE assist. 5: Education not to do balance ectivities at home. Skilled Intervention: Skilled judgment used to assess appropriate program for balance and coordination activity. Insured patient safety with use of gait belt and contact guard assist as needed. Patient education as noted. Billing Therapeutic Exercise Treatment Minutes: 30 Neuromuscular Re-Education Treatment Minutes: 15 Total Treatment Time Minutes (timed/untimed): 45 ALISIA Whiting PT documented in this encounterAd[facility]07-08-2022 Miscellaneous Notes* Telephone Encounter - Maggy Hubbard - 01/19/2022 2:08 PM EDT Called pt told him that he can not drive at this time. He voiced understanding. * Telephone Encounter - Tamie Kaur MD - 01/19/2022 1:[address] after syncopal episode * Telephone Encounter - Tamie Kaur MD - 01/19/2022 1:18 PM EDT Work up not complete yet Then he will come for follow up He cannot drive at this time * Telephone Encounter - Suzanne Connelly RN - 01/19/2022 8:26 AM EDT Message forwarded to Dr. Kaur for review. * Telephone Encounter - Abdulaziz Caldera MD - 01/18/2022 4:49 PM EDT Reviewed. * Telephone Encounter - Nelson Hernandez RN - 01/18/2022 4:48 PM EDT Patient reports he forgot to ask Dr Kaur, at his neurology appt on 01-05-22, if he is allowed to drive? Please phone patient with reply. * Telephone Encounter - Marcella Alvarez RN - 01/18/2022 4:40 PM EDT Pt reports he hasn't driven since he's seen provider. Pt doesn't remember seeing Neurology on 01/05,told him provider told him ask them about what they thought about him driving. Pt reports he will give them a call. Pt has an EEG scheduled on 02/02/22 for neurology. * Telephone Encounter - Tamika Grijalva LPN - 01/18/2022 3:55 PM EDT VM left for patient to return call and request to speak to a nurse for update on driving. * Telephone Encounter - Abdulaziz Caldera MD - 01/18/2022 3:19 PM EDT He was supposed to follow up with neurology for memory impairment and was instructed not to drive. I would have him discuss this further with neurology after their assessment. * Telephone Encounter - Padmini Arias LPN - 01/17/2022 3:28 PM EDT Patient calling, states that he was told at his last OV he needed to stop driving until some results came back but he did not know what test he was waiting on. Patient is asking if he is still supposed to waiting on driving. Please advise. documented in this encounterAd[facility]07-01-2022 History of Present illness Narrative* Rosa Elena Poon, PT - 01/12/2022 12:22 PM EDT Episode Visit Count: 1 Therapist That Will Oversee The Plan Of Care: Rosa Elena Poon Start of Care Date: 01/12/22 Onset Date: 12/28/21 Plan of Care Certification Date: 01/12/22 Next Certification Due Date: 03/15/22 Patient Identified by Name and Date of : Yes REHABILITATION AND SPORTS THERAPY PHYSICAL THERAPY EVALUATION PLAN OF CARE: Assessment: Richard Roy presents with diagnosis of abnormality of gait due to impairment of balance that interferes with standing;walking in the community . He presents with impairments in balance, gait, overall function and strength. Prognosis for therapy is Good due to: current objective clinical presentation;good support system/ coping skills;Prognosis may be limited due to . He will benefit from skilled therapy services to meet the goals established for this plan of care as noted below. Goals for Episode of Care: created on 01/12/22 through 03/15/22 [place] in home exercise program. Patient will demonstrate increase in B LE strength to 4+ to 5/5 during manual muscle testing in order to improve function for home management tasks and prior functional tasks. Normal gait. Patient will report no falls. Improve score on Timed Up and Go Test to <12 seconds to reflect decreased fall risk. Improve score on 30 Second Chair Stand to 8-10 repetitions to reflect decreased fall risk. Improve performance on 4 Stage Balance Test to tandem stance, R SLS, L SLS x 10 sec to reflect decreased fall risk. Patient Goals: Pt states he would like to be able to stand for longer periods of time. Planned Interventions, Frequency, and Duration: Current Frequency: 2x/week Duration: 8 weeks Total Number of Visits Planned: 16 Planned Treatment Interventions: Therapeutic exercise (02729);Neuromuscular re- education (42518);Gait Training (70398);Patient/Family/Caregiver Education PLAN FOR NEXT VISIT: Review HEP and progress exercises. May add strengthening and balance activities. Further assess falls history. Patient demonstrates good understanding of plan of care and treatment. The above goals and plan of care were discussed and agreed upon by patient/family. SUBJECTIVE: Richard Roy is a 76 year old male seen today for Pt states one really hot day he got dehydrated and passed out. Pt was evaluated in the ER. Pt states he is ambulating with no assistive device since he has been home. He states he sits a lot during the day. Pt notes he is able to negotiate stairs using a railing without difficulty to get to his upstairs bedroom. Pt notes he walked in from theparking lot today, but does not go out in the community much to do any longer distance walking. Pt's reports he is not able to stand for any length of time and has to get a chair to siton if he does something that takes time. Patient Goals: Pt states he would like to be able to stand for longer periods of time. 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 5 points is clinically meaningfully difference Percentiles provide an indication of how the patient's score ranks in relation to the general population. Higher percentile rankings indicate better function/quality of life. 50th percentile is the average of the general population and indicates half of respondents had a worse score. T-scores: mean of general population = 50. 5 points is clinically meaningfully difference Percentiles provide an indication of how the patient's score ranks in relation to the general population. Higher percentile rankings indicate better function/quality of life. 50th percentile is the average of the general population and indicates half of respondents had a worse score. OBJECTIVE MEASURES WITH LEVEL OF FUNCTION: LE Strength R Hip Flexion (L2): 4/5 R Hip ABduction: 4-/5 R Hip ADduction: 5/5 R Knee Extension (L3): 4+/5 R Knee Flexion: 5/5 R Ankle Dorsiflexion (L4): 4+/5 R Ankle Plantar Flexion: 4+/5 L Hip Flexion (L2): 4/5 L Hip ABduction: 4-/5 L Hip ADduction: 5/5 L Knee Extension (L3): 4+/5 L Knee Flexion: 5/5 L Ankle Dorsiflexion (L4): 4+/5 L Ankle Plantar Flexion: 4+/5 Gait Gait: Independent Gait Device: None Gait Deviations: Right Lower Extremity;General Deviations Gait Deviations Right Lower Extremity: (R foot with ER) General Deviations/Observations: Arm swing decreased;Merari decreased;Wide base of support Balance Static Standing Balance: Narrow Base of Support;Semi/Partial Tandem Stance;Tandem Stance;Single LegStance Narrow Base of Support: 1 min Semi/Partial Tandem Stance: 1 min each leg Tandem Stance: unable Single Leg Stance: unable Functional Performance Test Results 30 Second Chair Stand Test: 6 reps Timed Up and Go (sec): 14 sec (no assistive device) Education: Education Learning Preferences: Demonstration;Explanation Barriers: None Learning/educational needs: Home exercise program;Plan of Care Education Provided: Yes, see treatment interventions for education provided Education Provided To: Patient;Family (Pt's present during evaluation and treatment today.) Education Mode/Type: Demonstration;Explanation/Discussion;Literature/Printed Materials;Performance Response to Education/Teach Back: States/Identifies;Return Demonstration TREATMENT: PT Treatment Interventions: Therapeutic Exercise Evaluation Therapeutic Exercise: 1: *Seated marching 2 x 10 each leg 2: *seated LAQ 2 x 10 each leg 3: *seated heel raises x 20 4: *seated toe raises x 20 Skilled Intervention: Patient was educated in proper exercise technique and purpose for exercises. Skilled judgment was provided in selection of appropriate interventions. Provided written instruction for home exercise program to facilitate proper performance and compliance. Correct performance of therapeutic exercises was facilitated with verbal and visual cuing. Patient education as noted. Billing * Evaluation Low Complexity: 1 Unit Therapeutic Exercise Treatment Minutes: 20 Total Treatment Time Minutes (timed/untimed): 42 Rosa Elena Poon PT documented in this encounterAd[facility]07[facility]-2022 Miscellaneous Notes* Telephone Encounter - Ewa Andino Ma - 01/12/2022 11:47 AM EDT Patient was notified Ewa Andino Ma * Telephone Encounter - Roselia Madrigal APRN.CNP - 01/12/2022 10:48 AM EDT At this time he should refrain from driving until he is cleared by neurology. Roselia Madrigal APRN.CNP * Telephone Encounter - Ewa Andino Ma - 01/12/2022 8:47 AM EDT Spoke to patient who advised he had old rx of metfromin 500 mg and than new rx where was increased 2 tab BID. Aware fine to take just needs to do 2 tab BID as directed. Patient advised was told by Dr. Caldera not to drive awhile ago. Does not recall why he was told this or if he needed cleared by neuro first? Aware that pcp will have to review when he is back in office Ewa Andino Ma * Telephone Encounter - Roselia Madrigal APRN.CNP - 01/12/2022 8:22 AM EDT If he is certain the medication is the metformin than he can take it as they are both the same doesand extended release. There should be markings on them that shows they are different though. Was hetold to not drive by someone? If he has seen the neurologist and has EEG scheduled thorough them I would have him call them and ask about driving. I have placed referral to podiatry- he may schedule at his convenience. Thanks, Roselia aMdrigal APRN.CNP * Telephone Encounter - Eva Schmid LPN - 01/11/2022 2:29 PM EDT Patient calling with several questions. Aware PCP is out of office until 01/16. Patient said at his last visit with PCP 01/01 he had mentioned about his metformin being different. Patient had rx for Metformin ER (Glumetza type), computer now shows Metformin ER (Glucophage), patient said he tends to put his rx in old bottle. He thinks he has both mixed together. Asking if that will cause a problem ornot? Patient also asking about driving again? He had seen Neurology and has EEG scheduled for later January. Had his ECHO done and it was normal. Patient also asking for Podiatry referral for nail care. Last seen 03/2021. Pending consult. Please advise documented in this encounterAd[facility]06-29-2022 Miscellaneous Notes* Telephone Encounter - Mila Sharma - 01/10/2022 4:42 PM EDT Pt notified. If he has any further episodes he will contact PCP for further eval. Mila Sharma * Telephone Encounter - Mila Sharma - 01/10/2022 4:40 PM EDT ----- Message from Justina Hadley APRN.CNP sent at 01/10/2022 11:33 AM EDT ----- Please call patient and notify him. Echocardiogram is stable. Valve replacement function is stable.No cardiac structure/function changes to explain his syncope/collapse. Thank you! documented in this encounterAdams [facility]06-29-2022 Miscellaneous Notes* Result QuickNote - Justina Hadley APRN.CNP - 01/10/2022 11:33 AM EDT Please call patient and notify him. Echocardiogram is stable. Valve replacement function is stable.No cardiac structure/function changes to explain his syncope/collapse. Thank you! documented in this encounterAdams County [facility] Center06-24-2022 History of Present illness Narrative* Tamie Kaur MD - 01/05/2022 10:20 AM EDT Images from the original note were not included. NEUROLOGY CONSULT NOTE Please leave note in paper medical record. Previous records (physician notes, laboratory reports, and radiology reports) and imaging studies were reviewed and summarized as below. My recommendations will be communicated back to the patient's consulting physician(s) by way of shared medical record. REFERRING PHYSICIAN: Abdulaziz Caldera [address] [facility] [id number] Accompanied by: Spouse ASSESSMENT: 76 year old male with psychomotor retardation ,and episode of altered mental status , Admitted and discharged home ,and is at baseline mental status . Loss of interest in socialization and other outdoor activites PLAN: ---> work up for other causes of confusion and syncopal episode Office Visit on 01/05/22 MAGNESIUM BLD METHYLMALONIC ACID CONSULT TO NEUROLOGY CONSULT TO PHYSICAL THERAPY CONSULT TO SPEECH THERAPY EPIL EEG ROUTINE ---> Follow-up: 1-2 months, Tests results will be discussed in the follow up appointment Medications side effects explained and discussed with the patient . CC: Episode of mental status samir HxCC: 76 year old male , who presents for evaluation of folllow up after hospitalization in [facility]. he was admitted because of syncopal episode , found him ,poorly responsive ,confused Doesn't remember being taken by squad to the hospital. Was confuseed in the hospital and balance was off Since he has been discharged and is back To baseline mental status according to the who accompanied him today. He likes to stay at home and not interested in going out ,or socialize with others Since covid hit [place] [facility] [place] and was staying in the house by himself , Has been like that for years since the pandemic ,possibly before He has a cane at home but not using it , He didn't think he needed Chronic back pain ,diabetes hypertension and hyperlipidemia ,as vascular risk factors Had stroke work up and MRI Brain in the hospital with no acute lesion or atrophy or hydrocephalus On further neurologic questioning, the patient denies new headaches, neck or back pain.no dysphoniaor dysphagia. No saddle anesthesia. No muscular atrophy or fasciculations. RECENT LABS: WBC (k/uL) Date Value 01/01/2022 12.47 (H) RBC (m/uL) Date Value 01/01/2022 5.46 Hemoglobin (g/dL) Date Value 01/01/2022 14.5 Hematocrit (%) Date Value 01/01/2022 46.6 MCV (fL) Date Value 01/01/2022 85.3 MCH (pg) Date Value 01/01/2022 26.6 MCHC (g/dL) Date Value 01/01/2022 31.1 RDW-CV (%) Date Value 01/01/2022 14.5 Platelet Count (k/uL) Date Value 01/01/2022 287 MPV (fL) Date Value 01/01/2022 9.7 Last BMP (Basic Metabolic Panel) Lab Results Component Value Date NA 138 01/01/2022 NA 141 08/30/2021 Lab Results Component Value Date K 4.4 01/01/2022 K 5.0 08/30/2021 Lab Results Component Value Date CHLOR 101 01/01/2022 CHLOR 102 08/30/2021 Lab Results Component Value Date CO2 25 01/01/2022 CO2 26 08/30/2021 Lab Results Component Value Date BUN 15 01/01/2022 BUN 19 08/30/2021 Lab Results Component Value Date CREAT 1.20 01/01/2022 CREAT 1.25 08/30/2021 Lab Results Component Value Date GLUC 118 01/01/2022 GLUC 223 08/30/2021 Lab Results Component Value Date ANION 12 01/01/2022 ANION 13 08/30/2021 Lab Results Component Value Date CA 9.4 01/01/2022 CA 9.9 08/30/2021 TSH Date Value Ref Range Status 09/23/2013 1.590 0.400 - 5.500 uU/mL Final B12: RECENT IMAGING/DIAGNOSTICS: --MRI/MRA/MRV Brain w/wocontrast (/: --MRI Cervical Spine w/wocontrast (/: --EEG (/: PMH: PAST MEDICAL HISTORY Diagnosis Date Cholelithiasis 09/25/2013 Chronic neutrophilia Benign-Dr. 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 Dr. Obregon at [facility] COLONOSCOPY 10/10/2021 repeat in 3 years COLONOSCOPY FLX DX W/COLLJ SPEC WHEN PFRMD 03/12/2011 DEBRIDEMENT OF SKIN, FULL THIC 09/12/2010 LEFT GROIN DEBRIDEMENT OPEN WOUND 20 SQ CM/< 11/22/2010 Debridement posterior neck/I&D LLQ abd DEBRIDEMENT SUBCUTANEOUS TISSUE 20 SQ CM/< 09/11/2010 LEFT GROIN ESOPHAGOGASTRODUODENOSCOPY TRANSORAL DIAGNOSTIC 01/11/2019 EGD HEART SURGERY HX INCISION & DRAINAGE ABSCESS SIMPLE/SINGLE 09/08/2010 I&D abscess left groin INCISION & DRAINAGE ABSCESS SIMPLE/SINGLE 10/23/2010 I&D medial to left groin wound INCISION & DRAINAGE ABSCESS SIMPLE/SINGLE 01/22/2011 I&D LLQ superficial abscess REM LESION TRUNK,ARM, LEG <0.5 CM 03/21/2011 Exc. fibroepithelial polyp LLQ abd REVISION OF AORTIC VALVE 2004 Repair of Aortic Value/Thoracic anerusym repair SKIN BIOPSY HX CURRENT MEDS: Current Facility-Administered Medications Medication Dose Route Frequency perflutren lipid microspheres 1.3 mL in NaCl (PF) 0.9% 10 mL injection (DEFINITY) INTRAVENOUS DIRECTED PRN sodium chloride 0.9 % (flush) 10 mL (BD POSIFLUSH) 10 mL INTRAVENOUS DIRECTED PRN Current Outpatient Medications Medication Sig B cmplx 4/vit D3/C/folic/zinc (VITAL-D RX ORAL) Take by mouth one time a week. cholecalciferol, Vitamin D3, (VITAMIN D3) 1,250 mcg (50,000 unit) cap capsule Take 1 capsule by mouth one time a week. mupirocin (BACTROBAN) 2 % ointment Apply to affected area twice daily for 10 days. tamsulosin (FLOMAX) 0.4 mg Take 1 capsule by mouth daily at bedtime. metFORMIN ER (GLUCOPHAGE XR) 500 mg 24 hr tablet Take 2 tablets by mouth twice daily with meals. insulin glargine (LANTUS SOLOSTAR U-100 INSULIN) 100 unit/mL (3 mL) Inject 24 Units subcutaneously daily at bedtime. warfarin (COUMADIN) 5 mg tablet 10 mg Saturday and Saturday, 7.5 mg all other days. Patient has INR drawn bi-weekly. metoprolol succinate ER (TOPROL XL) 200 mg 24 hr tablet Take 1 tablet by mouth once daily. dulaglutide (TRULICITY) 1.5 mg/0.5 mL pen injector Inject 1.5 mg subcutaneously one time a week. Inject once per week. Discard Pen After atorvastatin (LIPITOR) 40 mg tablet TAKE 1 TABLET BY MOUTH ONCE DAILY. FOR CHOLESTEROL. losartan (COZAAR) 50 mg tablet Take 1 tablet by mouth once daily. blood sugar diagnostic (Yo que VosUCH ULTRA TEST) test strip Test blood sugar(s) 3 times daily. Dx: E11.49. Insulin: Yes Docusate Sodium 100 mg tab Take 100 mg by mouth once daily. insulin aspart U-100 (NOVOLOG FLEXPEN U-100 INSULIN) 100 unit/mL (3 mL) Inject with meals accordingto sliding scale: 100-200=3 units, 201-250=5 units, 251- 300=8 units, 301-350=12 units, 351-400=15 units. insulin needles, DISPOSABLE, (BD INSULIN PEN NEEDLE UF) 31 gauge x 5/16 1 Each four times daily. With insulin Current Facility-Administered Medications Medication Dose Route Frequency perflutren lipid microspheres 1.3 mL in NaCl (PF) 0.9% 10 mL injection (DEFINITY) INTRAVENOUS DIRECTED PRN sodium chloride 0.9 % (flush) 10 mL (BD POSIFLUSH) 10 mL INTRAVENOUS DIRECTED PRN ALLERGIES: ALLERGIES Allergen Reactions Pantoprazole Diarrhea FMH: FAMILY HISTORY Problem Relation Age of Onset No Known Problems Mother Heart Father Bypass and valve replaced Breast Cancer Sister No Known Problems Brother No Known Problems Son No Known Problems Son SOCIAL: Social History Tobacco Use Smoking status: Never Smoker Smokeless tobacco: Never Used Vaping Use Vaping Use: Never used Substance Use Topics Alcohol use: No Drug use: No REVIEW OF SYSTEMS (In addition to HPI): Review of Systems Constitutional: Negative Eyes: Negative Hent: Negative Cardiovascular: Negative Respiratory: Negative GI: Negative : Negative Endocrine: Negative Musculoskeletal Positive for Back Pain Integumentary: Negative Heme/Lymph: Negative Allergy/Immunologic: Negative Neurologic: Negative Psychiatric: Negative Patient's Review of Systems has been reviewed with the patient and updated as appropriate. PHYSICAL EXAM: BP 117/62 (BP Site: Right Arm, BP Position: Sitting, BP Cuff Size: Regular Adult) Pulse (!) 58 Resp 16 Ht 185.4 cm (6' 1 ) Wt 111.6 kg (246 lb) SpO2 97% BMI 32.46 kg/m GEN: Alert. NAD. Normal affect. Cooperative. HEENT: No icterus. Normal mucosa. No temporal artery tenderness. Fundoscopic exam unremarkable. NECK/BACK: No meningismus. No lymphadenopathy. No significant paraspinal neck or shoulder musculature tenderness or hypertonicity. No spinous process tenderness. CV: RRR. No M/G/R/C. No carotid bruits. RESP: CTA b/l. EXT: No cyanosis. No edema. No erythema. SKIN: No rashes. No lesions. NEUROLOGICAL: MENTAL STATUS: Awake alert oriented to his name and his age Oriented to day month and disoriented to the year But corrected himself and said 2021 3 words recall ,out of 3 93,86,79,72,65 Recall of 3 words out of 3 Copying repetition naming all good Scored 30/30 in MMSE Did the clock test perfectly fine CN: II: Visual barber intact. PERRLA. No Papilledema. III, IV, : EOMI. No ptosis present. Normal saccades. V: Symmetric facial sensation to PP. VII: Face symmetric. VIII: Hearing symmetric. No nystagmus. IX, X: Symmetric palatal rise. XI: Symmetric shoulder shrug. XII: Tongue midline with symmetric movements. MOTOR: Finger tap normal. No involuntary movement seen during today's exam. Normal tone and strength. No arm drift REFLEXES: Plantar response flexor b/l. No clonus. Negative Chris/Troemner. Negative palmomental, grasp, rooting, snouting and glabellar blink reflexes. SENSATION: PP, Proprioception, Vibration decreased and positive Romberg. CEREBELLAR: Normal F-N-F. Normal H-S. No dysmetria. No nystagmus. GAIT: Wide based gait ,unsteady Cannot tandem Tamie Kaur M.D. [facility] [place] Department of Neurology January 05, 2022 Total time in minutes spent with patient, reviewing records, labs, imaging, formulating plan, and documentin minutes with more than 50% of the time spent in patient education/counselling/coordinating care with the patient and /or family. I have discussed with the patient how to reduce likelihood of falling in home by removing throw rugs, loose wires or other objects from floor, installing hand- rails and leaving lights on at night. documented in this encounterAdams County [facility] Center06-21-2022 Miscellaneous Notes* Telephone Encounter - Justina Martinez LPN - 01/02/2022 8:06 AM EDT I spoke to and informed him of Justina's response to lipid panel results. Patient voiced understanding. Justina Martinez LPN * Telephone Encounter - Justina Martinez LPN - 01/02/2022 7:43 AM EDT ----- Message from Justina Hadley APRN.HAT CUTTER sent at 01/02/2022 7:38 AM EDT ----- Please call patient and notify him cholesterol has good control. Thank you! documented in this encounterAdams [facility]06-20-2022 History of Present illness Narrative* Abdulaziz Caldera MD - 01/01/2022 10:20 AM EDT Chief Complaint Patient presents with: Hospital Follow Up: [facility] discharged 12/29/21 HPI Richard Roy is a 76 year old male who presents here today for Hospital Discharge Follow up. Accompanied today by his . Patient admitted to [facility] from 12/27 to 12/29 after presenting to the [facility] ED after being found slumped over his tractor at home earlier in the afteernoon. Had been working outside for unknown period of time. Had only eaten cookies and milk that day. Heat index over 100. Back to baseline at the time of evaluation by hospitalist at [facility]. Found to have leukocytosis at [facility] and elevated lactic acid level. Noted possible pneumonia on CXR. Given 2 L IV fliuds and empric abx prior to transfer. During his admission, continued IV fluid rescucitation and improved dramatically. PT/OT evaluated him and did not need further therapy on discharge. Recommended he continue all of his other meds and follow up with our office for evaluation of possible early dementia. Leukocytosis resolved on12/29. Brain MRI showed just chronic involutional changes. Since discharge, his states that he has had to double check his medication all the time. Did well on his MMSE today, but states today is a good day for him. Seems confused and not himself still. Checking sugars at home and has not had any readings <80. Eating 3 meals per day, but has been telling his he does not feel hungry. Had follow up appointment with cardiology this morning. Recommended he get his pending echo since it was not completed at [facility]. No other changes to regimen. Patient incontinent of urine during the day without dysuria, hematuria, frequency, urgency, weak stream, straining to urinate. Admits to nocturia 2-3 times per night. states that he sits in a chair most of the day with his tablet and thinks he may forget to get up to use the restroom. Past medical history, appointments, medications, allergies reviewed. Previous Medical History PAST MEDICAL HISTORY Diagnosis Date Cholelithiasis 09/25/2013 Chronic neutrophilia Benign-Dr. 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 Dr. Obregon at [facility] COLONOSCOPY 10/10/2021 repeat in 3 years COLONOSCOPY FLX DX W/COLLJ SPEC WHEN PFRMD 03/12/2011 DEBRIDEMENT OF SKIN, FULL THIC 09/12/2010 LEFT GROIN DEBRIDEMENT OPEN WOUND 20 SQ CM/< 11/22/2010 Debridement posterior neck/I&D LLQ abd DEBRIDEMENT SUBCUTANEOUS TISSUE 20 SQ CM/< 09/11/2010 LEFT GROIN ESOPHAGOGASTRODUODENOSCOPY TRANSORAL DIAGNOSTIC 01/11/2019 EGD HEART SURGERY HX INCISION & DRAINAGE ABSCESS SIMPLE/SINGLE 09/08/2010 I&D abscess left groin INCISION & DRAINAGE ABSCESS SIMPLE/SINGLE 10/23/2010 I&D medial to left groin wound INCISION & DRAINAGE ABSCESS SIMPLE/SINGLE 01/22/2011 I&D LLQ superficial abscess REM LESION TRUNK,ARM, LEG <0.5 CM 03/21/2011 Exc. fibroepithelial polyp LLQ abd REVISION OF AORTIC VALVE 2005 Repair of Aortic Value/Thoracic anerusym repair SKIN BIOPSY HX Family History FAMILY HISTORY Problem Relation Age of Onset No Known Problems Mother Heart Father Bypass and valve replaced Breast Cancer Sister No Known Problems Brother No Known Problems Son No Known Problems Son Patient Allergies ALLERGIES Allergen Reactions Pantoprazole Diarrhea Current Medications Current Outpatient Medications on File Prior to Visit Medication Sig metFORMIN ER (GLUCOPHAGE XR) 500 mg 24 hr tablet Take 2 tablets by mouth twice daily with meals. metFORMIN ER (GLUMETZA) 500 mg 24 hr tablet Take 1 tablet by mouth daily with breakfast. insulin glargine (LANTUS SOLOSTAR U-100 INSULIN) 100 unit/mL (3 mL) Inject 24 Units subcutaneously daily at bedtime. warfarin (COUMADIN) 5 mg tablet 10 mg Saturday and Saturday, 7.5 mg all other days. Patient has INR drawn bi-weekly. metoprolol succinate ER (TOPROL XL) 200 mg 24 hr tablet Take 1 tablet by mouth once daily. dulaglutide (TRULICITY) 1.5 mg/0.5 mL pen injector Inject 1.5 mg subcutaneously one time a week. Inject once per week. Discard Pen After atorvastatin (LIPITOR) 40 mg tablet TAKE 1 TABLET BY MOUTH ONCE DAILY. FOR CHOLESTEROL. losartan (COZAAR) 50 mg tablet Take 1 tablet by mouth once daily. blood sugar diagnostic ([employer] ULTRA TEST) test strip Test blood sugar(s) 3 times daily. Dx: E11.49. Insulin: Yes Docusate Sodium 100 mg tab Take 100 mg by mouth once daily. insulin aspart U-100 (NOVOLOG FLEXPEN U-100 INSULIN) 100 unit/mL (3 mL) Inject with meals accordingto sliding scale: 100-200=3 units, 201-250=5 units, 251- 300=8 units, 301-350=12 units, 351-400=15 units. insulin needles, DISPOSABLE, (BD INSULIN PEN NEEDLE UF) 31 gauge x 5/16 1 Each four times daily. With insulin Current Facility-Administered Medications on File Prior to Visit Medication perflutren lipid microspheres 1.3 mL in NaCl (PF) 0.9% 10 mL injection (DEFINITY) sodium chloride 0.9 % (flush) 10 mL (BD POSIFLUSH) Social History Social History Tobacco Use Smoking status: Never Smoker Smokeless tobacco: Never Used Vaping Use Vaping Use: Never used Substance Use Topics Alcohol use: No Drug use: No Review of Symptoms REVIEW OF SYSTEMS GENERAL: No weight loss, malaise or fevers RESPIRATORY: Negative for cough, hemoptysis, wheezing, COPD, dyspnea or shortness of breath CARDIOVASCULAR: Negative for chest pain, leg swelling, hypertension, CHF or palpitations GI: No nausea, vomiting, or diarrhea SKIN: Negative for lesions, rash, and itching EXAM: BP 112/64 Pulse (!) 47 Temp 36.3 C (97.4 F) Resp 18 Wt 111.8 kg (246 lb 6.4 oz) SpO2 98% BMI 32.51 kg/m General Appearance: Well appearing, alert, in no acute distress, well-hydrated, well nourished.. Skin: Stage 1 ulcer on right buttock without cellulitis. Lungs: Lungs clear to auscultation. No wheezing, rhonchi, rales.. Heart: RRR without murmur, gallop, or rubs. No ectopy. Abdomen: Normal abdominal exam, Abdomen soft, non-tender. Bowel sounds normal. No masses, organomegaly. Extremities: No deformities, edema, skin discoloration, clubbing or cyanosis. Good capillary refill. . Rectal: Negative findings: perianal area normal, anus normal, anal sphincter tone normal, prostate and seminal vesicles non-tender without nodules, Positive findings: prostate 1+. Health Maintenance List BP CONTROLLED (<130/80) Never done DTAP,TDAP,TD(3 - Td or Tdap) due on 12/25/2020 ADVANCE DIRECTIVE DISCUSSION Never done COVID-19 VACCINE(4 - Booster for Pfizer series) due on 09/15/2021 DEPRESSION SCREENING due on 10/28/2021 URINE ALBUMIN:CREATININE RATIO due on 11/16/2021 LDL CHOLESTEROL due on 11/16/2021 DIABETIC FOOT EXAM due on 11/23/2021 DILATED RETINAL EXAM due on 02/20/2022 HBA1C due on 02/27/2022 HEMOGLOBIN/HEMATOCRIT due on 03/15/2022 SERUM CREATININE due on 08/30/2022 ANNUAL PCP TEAM CHRONIC DISEASE VISIT due on 12/14/2022 COLORECTAL CANCER SCREENING due on 10/10/2024 INFLUENZA Completed HEPATITIS C SCREENING Completed SHINGRIX VACCINE Completed PNEUMOCOCCAL: 65+ Completed Data reviewed MMSE 28/30 (see letters) ASSESSMENT/PLAN: 1. Syncope and collapse - ICD9: 780.2, ICD10: R55 (primary diagnosis) 2/2 heat exhaustion. Discussed importance of hydration, staying in cool areas during heat of the day. 2. Altered mental status, unspecified altered mental status type - ICD9: 780.97, ICD10: R41.82 MMSE shows mild impairment. Obtain labs and refer to neurology for further evaluation. - VITAMIN D 25 HYDROXY - VITAMIN B12 BLOOD - CBC + DIFF - CONSULT TO NEUROLOGY 3. Urinary incontinence, unspecified type - ICD9: 788.30, ICD10: R32 UA negative. Mildly enlarged prostate. Will start flomax and discussed setting recurrent alarm on tablet to remind him to use the restroom. - COMP METABOLIC PANEL - UA DIP, URINE (POC) - TAMSULOSIN 0.4 MG CAPSULE - PSA/PROSTSPECAG SCRN 4. Benign prostatic hyperplasia with nocturia - ICD9: 600.01, 788.43, ICD10: N40.1, R35.1 5. Nocturia - ICD9: 788.43, ICD10: R35.1 Check PSA. See above. Call if not improving in 1-2 weeks. - PSA/PROSTSPECAG SCRN 6. Vitamin D deficiency, unspecified - ICD9: 268.9, ICD10: E55.9 7. Wound of left lower extremity, initial encounter - ICD9: 894.0, ICD10: S81.802A Early ulcer. Will treat with mupirocin. Discussed changing positions frequently during the day. Call if not improving in 1-2 weeks. - MUPIROCIN 2 % TOPICAL OINTMENT 8. Encounter for screening for malignant neoplasm of prostate - ICD9: V76.44, ICD10: Z12.5 - PSA/PROSTSPECAG SCRN Abdulaziz Caldera MD documented in [facility] encounterAd[facility] Instructions* Patient Instructions* Justina Hadley APRN.HAT CUTTER - 01/01/2022 9:05 AM EDT High Blood Pressure: Essential Hypertension What is high blood pressure? Blood pressure is the force of blood against artery dupree as the heart pumps blood through the body. You may be told that you have high blood pressure (hypertension) if your blood pressure is higher than normal. Hypertension is called essential when no cause for it can be found. When the cause of hy pertension is known, such as kidney disease or a tumor, it is called secondary hypertension. Blood pressure can rise and fall with exercise, rest, or emotions. Normal resting blood pressure ranges up to 120/80 ( 120 over 80 ). The first number (120 in this example) is the pressure when the heart beats and pushes blood out to the rest of the body. The secondnumber (80 in this example) is the pressure when the heart rests between beats. Blood pressure is borderline high if it is 120/80 or higher but less than 140/90. High blood pressure is 140/90 or higher. If you have chronic kidney disease, 130/80 or higher is considered high blood pressure. Why is high blood pressure a problem? High blood pressure is a problem in many ways. Your heart has to work harder to pump blood through your body. The added workload on the heart causes thickening of the heart muscle. Over time, the thickening damages the heart muscle so that it canno longer pump normally. This can lead to a disease called heart failure. The higher pressure in your arteries may cause them to weaken and bleed, resulting in a stroke. As you get older, blood vessels may become hardened. High blood pressure speeds up this process. Hardened or narrowed arteries may not be able to supply enough blood to all parts of your body. High blood pressure may lead to atherosclerosis, in which deposits of cholesterol, fatty substances, and blood cells clog up an artery. Atherosclerosis is the leading cause of heart attacks. It can also cause strokes. Your kidneys, brain, and eyes may also be damaged. You may need treatment for high blood pressure for the rest of your life. However, proper treatmentcan control your blood pressure and help prevent heart disease, heart attack, or stroke. It can also help prevent long-term health problems, such as heart failure, kidney failure, blindness, and dementia. If you already have some complications, such as breathing problems or chest pain, lowering your blood pressure may make these problems less severe. What is the cause? There are no clear causes of essential hypertension. However, many things can increase blood pressure, such as: Being overweight Smoking Eating a diet high in salt Drinking a lot of alcohol Other important factors include: Race. Americans are more likely to have high blood pressure. Gender. Males have a greater chance of developing high blood pressure than women until age 55. After the age of 75, women are more likely to develop high blood pressure than men. Heredity. If you have parents with high blood pressure, you are more at risk. Age. The older you get, the more likely you are to have high blood pressure. Also, some medicines increase blood pressure. Stress and drinking caffeine can make blood pressure go up temporarily but it s not clear that theyhave any long-term effects on blood pressure. What are the symptoms? You may have high blood pressure for a long time without symptoms. You may not be able to tell by the way you feel that your blood pressure is high. The only way to find out if your blood pressure ishigh is to have it measured. That's why it s important to have your blood pressure checked at leastonce a year. When high blood pressure does cause symptoms, they may include: Headaches Nosebleeds Getting tired easily Blurred vision Dizziness Fast or irregular heartbeat Shortness of breath Chest pain How is it diagnosed? Blood pressure is checked at most healthcare visits. High blood pressure is usually discovered during one of these visits. If your blood pressure is high, you will be asked to return for follow-up checks. Your healthcare provider will ask about your personal and family medical history and examine you. Tests to look for a possible cause of high blood pressure may include: Urine and blood tests Chest X-ray Electrocardiogram (ECG), which measures and records your heartbeat You may be asked to use a portable blood-pressure measuring device, which will take your pressure at different times during day and night. How is it treated? If your blood pressure is borderline high, you may be able to bring it down to a normal level without medicine. Weight loss, changes in your diet, and exercise may be the only treatment you need. If lifestyle changes don t lower your blood pressure enough, your healthcare provider may prescribemedicine. Many people need to take 2 or more medicines to bring their blood pressure down to a healthy level. It may take several weeks or months to find the best treatment for you. How can I take care of myself? If you have high blood pressure, there are things you can do now to take care of yourself and to prevent problems in the future: Follow your treatment plan and know how to take your medicines. ?Work with your healthcare provider to find what lifestyle changes and medicines are right for you. ?Follow the directions that come with your medicine, including information about food or alcohol. Make sure you know how and when to take your medicine. Do not take more or less than you are supposedto take. ?Many medicines have side effects. A side effect is a symptom or problem that is caused by the medicine. Ask your healthcare provider or pharmacist what side effects your medicine may cause and what you should do if you have side effects. Ask if you should avoid some nonprescription medicines. ?Be careful with nonprescription medicines or herbal supplements. Some can raise blood pressure. This includes diet pills, cold and pain medicines, and energy boosters. Read labels or ask your pharmacist if the medicine or supplement affects blood pressure. Some illegal drugs, like cocaine, can also affect blood pressure. ?Check your blood pressure (or have it checked) as often as your provider advises. Keep a diary of the readings. A diary is also a good place to note your exercise, weight, salt intake, types of foodyou are eating, and your feelings. This can help you learn how these things can affect your blood pressure. Take your diary with you when you visit your provider. Don t smoke. Eat a healthy diet that is low in salt, saturated fat, trans fat, and cholesterol. Include lots of fruits, vegetables, and fat-free or low-fat milk and milk products. Get regular exercise, according to your healthcare provider's advice. For example, you might walk, bike, or swim at least 30 minutes 3 to 5 times a week. Limit the amount of alcohol you drink. Moderate drinking is up to 1 drink a day for women and up to2 drinks for men. Lose weight if you need to. Try to reduce the stress in your life or learn how to deal better with situations that make you feel anxious. Ask your healthcare provider: ?How and when you will hear your test results ?How long it will take to recover ?What activities you should avoid and when you can return to your normal activities ?How to take care of yourself at home ?What symptoms or problems you should watch for and what to do if you have them Make sure you know when you should come back for a checkup. How can I help prevent high blood pressure? You can help prevent this disease with a heart-healthy lifestyle: Eat a healthy diet and keep a healthy weight. Stay fit with the right kind of exercise for you. Decrease stress. Don t smoke. Limit your use of alcohol. Talk to your healthcare provider about your personal and family medical history and your lifestyle habits. This will help you know what you can do to lower your risk for high blood pressure. Developed by [employer]. Published by [employer]. Copyright 2014 [employer] and/or one of its subsidiaries. All rights reserved. documented in this encounterAd[facility]06-20-2022 History of Present illness Narrative* Justina Hadley APRN.CNP - 01/01/2022 8:57 AM EDT Chief Complaint Patient presents with: Follow Up: 6 mo History of Present Illness: Richard Roy is a 76 year old male who presents for routine follow up. 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 His accompanies him for his office visit today. They bothexplain to me he was hospitalized at [facility] for 2 days last week for syncope/collapse. His states he was working outside on the hottest day last week when she found him passed out on his tractor. According to his , heat exhaustion and dehydration was determined to be the cause ofsyncope. states he has been without cardiac complaints and felt like he was in a normal state of health earlier that day. He denies chest pain, chest pain with activity, SOB, palpitations, dizziness, syncope, orthopnea, LE swelling. Records have been requested from [facility]. He is unsure of what testing was completed. An echocardiogram was ordered at his last office visit with me.If this was not completed at [facility], I recommend this be completed for further cardiac evaluation. PAST MEDICAL HISTORY Diagnosis Date Cholelithiasis 09/25/2013 Chronic neutrophilia Benign-Dr. 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 Dr. Obregon at [facility] COLONOSCOPY 10/10/2021 repeat in 3 years COLONOSCOPY FLX DX W/COLLJ SPEC WHEN PFRMD 03/12/2011 DEBRIDEMENT OF SKIN, FULL THIC 09/12/2010 LEFT GROIN DEBRIDEMENT OPEN WOUND 20 SQ CM/< 11/22/2010 Debridement posterior neck/I&D LLQ abd DEBRIDEMENT SUBCUTANEOUS TISSUE 20 SQ CM/< 09/11/2010 LEFT GROIN ESOPHAGOGASTRODUODENOSCOPY TRANSORAL DIAGNOSTIC 01/11/2019 EGD HEART SURGERY HX INCISION & DRAINAGE ABSCESS SIMPLE/SINGLE 09/08/2010 I&D abscess left groin INCISION & DRAINAGE ABSCESS SIMPLE/SINGLE 10/23/2010 I&D medial to left groin wound INCISION & DRAINAGE ABSCESS SIMPLE/SINGLE 01/22/2011 I&D LLQ superficial abscess REM LESION TRUNK,ARM, LEG <0.5 CM 03/21/2011 Exc. fibroepithelial polyp LLQ abd REVISION OF AORTIC VALVE 2004 Repair of Aortic Value/Thoracic anerusym repair SKIN BIOPSY HX FAMILY HISTORY Problem Relation Age of Onset No Known Problems Mother Heart Father Bypass and valve replaced Breast Cancer Sister No Known Problems Brother No Known Problems Son No Known Problems Son Social History Tobacco Use Smoking status: Never Smoker Smokeless tobacco: Never Used Vaping Use Vaping Use: Never used Substance Use Topics Alcohol use: No Drug use: No ALLERGIES Allergen Reactions Pantoprazole Diarrhea Medications: Current Outpatient Medications Medication Sig Dispense Refill metFORMIN ER (GLUCOPHAGE XR) 500 mg 24 hr tablet Take 2 tablets by mouth twice daily with meals. 360 tablet 1 metFORMIN ER (GLUMETZA) 500 mg 24 hr tablet Take 1 tablet by mouth daily with breakfast. 90 tablet 1 insulin glargine (LANTUS SOLOSTAR U-100 INSULIN) 100 unit/mL (3 mL) Inject 24 Units subcutaneously daily at bedtime. 5 Pen 5 warfarin (COUMADIN) 5 mg tablet 10 mg Saturday and Saturday, 7.5 mg all other days. Patient has INR drawn bi-weekly. 180 tablet 1 metoprolol succinate ER (TOPROL XL) 200 mg 24 hr tablet Take 1 tablet by mouth once daily. 90 tablet 3 dulaglutide (TRULICITY) 1.5 mg/0.5 mL pen injector Inject 1.5 mg subcutaneously one time a week. Inject once per week. Discard Pen After 12 Each 3 atorvastatin (LIPITOR) 40 mg tablet TAKE 1 TABLET BY MOUTH ONCE DAILY. FOR CHOLESTEROL. 90 tablet 2 losartan (COZAAR) 50 mg tablet Take 1 tablet by mouth once daily. 90 tablet 3 blood sugar diagnostic ([employer] ULTRA TEST) test strip Test blood sugar(s) 3 times daily. Dx: E11.49. Insulin: Yes 300 Strip 3 Docusate Sodium 100 mg tab Take 100 mg by mouth once daily. insulin aspart U-100 ([employer] FLEXPEN U-100 INSULIN) 100 unit/mL (3 mL) Inject with meals accordingto sliding scale: 100-200=3 units, 201-250=5 units, 251- 300=8 units, 301-350=12 units, 351-400=15 units. 5 Pen 5 insulin needles, DISPOSABLE, (BD INSULIN PEN NEEDLE UF) 31 gauge x 5/16 1 Each four times daily. With insulin 120 Each 11 Current Facility-Administered Medications Medication Dose Route Frequency Provider Last Rate Last Admin perflutren lipid microspheres 1.3 mL in NaCl (PF) 0.9% 10 mL injection (DEFINITY) INTRAVENOUS DIRECTED PRN Justina Hadley, CROZE CUTTER.HAT CUTTER sodium chloride 0.9 % (flush) 10 mL (BD POSIFLUSH) 10 mL INTRAVENOUS DIRECTED PRN Justina Hadley, CROZE CUTTER.HAT CUTTER Review of Systems Constitutional: Negative for chills, diaphoresis, fever, malaise/fatigue and weight loss. HENT: Negative for congestion, ear pain, nosebleeds, sinus pain and sore throat. Eyes: Negative for pain. Respiratory: Negative for cough, shortness of breath and wheezing. Cardiovascular: Negative for chest pain, palpitations and leg swelling. Gastrointestinal: Negative for abdominal pain, blood in stool and melena. Genitourinary: Negative for hematuria. Musculoskeletal: Negative for falls. Neurological: Positive for loss of consciousness. Negative for dizziness, tingling, sensory change,speech change, focal weakness, weakness and headaches. Endo/Heme/Allergies: Does not bruise/bleed easily. Psychiatric/Behavioral: Negative for depression, memory loss and suicidal ideas. The patient is notnervous/anxious and does not have insomnia. Physical Examination: Vitals:BP 147/74 Pulse 60 Resp 18 Wt 248 lb (112.5kg) BP w/Orthostatic Vitals Date and Time Orthostatic BP Orthostatic Pulse BP Pulse BP Position BP Site BP Cuff Size 01/01/22 0855 -- -- 147/74 60 Sitting Right Arm Large Adult Peak Flow Date and Time PF Resp 01/01/22854 -- 18 Last 2 Encounter Wt Readings: Date: Wt: 01/01/2022 248 lb (112.5 kg) 12/14/2021 244 lb 3.2 oz (110.8 kg) Physical Exam HENT: Head: Normocephalic. Eyes: Pupils: Pupils are equal, round, and reactive to light. Cardiovascular: Rate and Rhythm: Normal rate and regular rhythm. Pulses: Radial pulses are 2+ on the right side and 2+ on the left side. Dorsalis pedis pulses are 2+ on the right side and 2+ on the left side. Heart sounds: Normal heart sounds, S1 normal and S2 normal. Pulmonary: Effort: Pulmonary effort is normal. No accessory muscle usage or respiratory distress. Breath sounds: Normal breath sounds. Abdominal: General: Bowel sounds are normal. Palpations: Abdomen is soft. Musculoskeletal: General: Normal range of motion. Cervical back: Normal range of motion. Right lower leg: Right lower leg edema: trace. Left lower leg: Left lower leg edema: trace. Skin: General: Skin is warm and dry. Neurological: Mental Status: He is alert and oriented to person, place, and time. Gait: Gait is intact. Psychiatric: Mood and Affect: Affect normal. Cognition and Memory: Memory normal. Judgment: Judgment normal. Most Recent Cardiac Testing 2004: The patient obtained a CAT scan on July 22, 2004, which revealed the proximal ascending thoracic aorta measuring 5.5 cm. On July 24, 2004, the patient underwent left heart cath, which revealed minimal three vessel atherosclerotic coronary artery disease. The patient's preoperative echocardiogram revealed an ejection fraction of 60% with mildly dilated left ventricle and moderate left ventricular hypertrophy. Echocardiogram also revealed 2+ aortic insufficiency due to annular dilatation. Therefore, the patient was determined to be a surgical candidate because of severe aortic insufficiency and aortic aneurysm. 02/08/2017 CONCLUSIONS: - Exam indication: s/p Aortic root replacement - The left ventricle is normal in size. There is moderate concentric left ventricular hypertrophy. Left ventricular systolic function is hyperdynamic. EF = 75 5% (visual est.) Grade I left ventricular diastolic dysfunction. - S/P aortic valve repair. There is no aortic valve regurgitation. There is no aortic valve stenosis. - Exam was compared with the prior echocardiographic exam performed on 01/27/2014. The appearance of the posterior mitral annulus and contiguous LA is unchanged. Assessment and Plan: Syncope/collapse -Patient explains he was hospitalized last week for syncope. His found him passed out on his tractor when working outside on a hot day. Hospital work-up determined heat exhaustion and dehydration as the cause of syncope. We will request records. Recommended pending echocardiogram ordered at last office visit be completed if this was not done in the hospital. He denies any associated cardiac symptoms of lightheadedness, chest pain or palpitations. He states a stroke was ruled out with a CT scan and MRI of his head CAD -MILD on [facility] 2004 -stress testing 2013 with no obvious ischemia -without symptoms concerning for angina -EF 75% -continue coumadin, statin, metoprolol -encouraged routine activity and heart healthy diet for risk factor modification Aortic insufficiency -s/p AVR in 2004 with prosthetic valve -asymptomatic -most recent echocardiogram with stable valve function -repeat echocardiogram pending Thoracic aneurysm, TAA/aortic root dilated -S/p repair 2004 -Echocardiogram pending for routine surveillance -continue metoprolol and ARB -avoid heavy lifting, excess stimulants HTN -147/74, suboptimal has a follow-up appointment with his PCP later today we will follow blood pressure reading at second office visit. Hesitant to change hypertension management given recent syncope -Continue current medication(s) -Encouraged dietary sodium restriction/DASH diet -Recommended regular aerobic exercise. -Recommend home blood pressure monitoring, to bring results in on next visit -Discussed need and benefit for weight loss. -Goal of BP <130/80 HLD -lipid panel 11/16/2020 LDL 40 -continue Lipitor 40 mg -Repeat CMP and fasting lipid panel for updated lab work SVT -no symptomatic recurrence -Continue metoprolol PE -2014, unprovoked -has been recommended life long anticoagulation and has remained on coumadin therapy without complications -consider changing to eliquis or xarelto for lower bleeding risk and ease of management. Patient will discuss with his PCP who is currently managing Coumadin therapy. We will need to check cost Obesity -lifestyle modifications -encouraged a heart healthy diet, routine exercise and weight loss Follow up in 6 months. Patient to call with any issues or concerns prior to then. Some elements were copied from my note dated 07/11/2021, which have been updated where appropriate,and all reflect current medical decision making from today Electronically signed by Justina Hadley APRN.CNP on January 01, 2022, 8:57 AM documented in this encounterAdams County [facility]06-19-[facility]22 Note. MICRO - Microbiology PROCEDURE: Blood Culture (bacterial) [*1] SOURCE: Blood BODY SITE: COLLECTED DATE/TIME: 12/27/2021 17:43 EDT RECEIVED DATE/TIME: 12/28/2021 14:37 EDT START DATE/TIME: 12/28/2021 14:37 EDT FREE TEXT SOURCE: FINAL REPORTS Final Report [] Verified Date/Time/Personnel: 12/31/2021 07:29 EDT Staphylococcus epidermidis Isolated from anaerobe bottle only. Refer to previous culture for susceptibility. [id number] PRELIMINARY REPORTS Preliminary Report [] Verified Date/Time/Personnel: 12/30/2021 09:39 EDT Staphylococcus epidermidis Isolated from anaerobe bottle only. Refer to previous culture for susceptibility. [id number] Preliminary Report [] Verified Date/Time/Personnel: 12/28/2021 15:59 EDT Culture has been received in lab and is no growth to date. Routine cultures are held for 5 days. STAINS GSANA [] Verified Date/Time/Personnel: 12/29/2021 14:08 EDT Gram Positive Cocci in clusters Performing Locations *1: This test was performed at: [facility], [address] [place] [address], [facility] , [facility] ([place])12-31-2021 Note. MICRO - Microbiology PROCEDURE: Blood Culture (bacterial) [*1] SOURCE: Blood BODY SITE: COLLECTED DATE/TIME: 12/27/2021 17:43 EDT RECEIVED DATE/TIME: 12/28/2021 14:37 EDT START DATE/TIME: 12/28/2021 14:37 EDT FREE TEXT SOURCE: FINAL REPORTS Final Report [] Verified Date/Time/Personnel: 12/31/2021 07:29 EDT Staphylococcus epidermidis Isolated from aerobe and anaerobe bottles. PRELIMINARY REPORTS Preliminary Report [] Verified Date/Time/Personnel: 12/30/2021 09:36 EDT Staphylococcus epidermidis Isolated from aerobe and anaerobe bottles. KLAUS to follow Preliminary Report [] Verified Date/Time/Personnel: 12/28/2021 15:59 EDT Culture has been received in lab and is no growth to date. Routine cultures are held for 5 days. STAINS GSANA [] Verified Date/Time/Personnel: 12/29/2021 10:57 EDT Gram Positive Cocci in clusters GSAER [] Verified Date/Time/Personnel: 12/29/2021 05:56 EDT Gram Positive Cocci in clusters SUSCEPTIBILITY RESULTS Staphylococcus epidermidis Antibiotic KLAUS Dilut KLAUS Inter Ampicillin/ <=8/4 Resistant Sulbactam Azithromycin <=2 Susceptible Cefepime <=4 Resistant Cefotaxime <=8 Resistant Ceftriaxone 8 Resistant Ciprofloxacin <=1 Susceptible Clindamycin <=0.25 Susceptible Erythromycin <=0.25 Susceptible Imipenem <=4 Resistant Levofloxacin <=1 Susceptible Meropenem 8 Resistant Oxacillin >2 Resistant Penicillin >2 Resistant Rifampin <=1 Susceptible Tetracycline <=4 Susceptible Trimethoprim/ <=0.5/9.5 Susceptible Sulfa Vancomycin 1 Susceptible Performing Locations *1: This test was performed at: [facility], [address] [place] [address], [id number] , [facility] ([place])12-27-2021 SARS-CoV-2 (COVID-19) RNA ANGELY+probe Ql (Nph)Positive 2 *ABN* (12/27/21 5:43 PM)AO Auto Urine SSComment on above:Result Comment: positive covid cvrb s. tona Evaluation + Plan note Diagnostic Tests Pending * Urinalysis 12/27/21 * Blood Culture (bacterial) 12/27/21 * Blood Culture (bacterial) 12/27/21 [facility] 06-02-2022 History of Present illness Narrative* Abdulaziz Caldera MD - 12/14/2021 3:13 PM EDT Chief Complaint Patient presents with: Covid Follow Up HPI Richard Roy is a 76 year old male who presents here today for Above Complaints.. Patient positive for COVID in the [facility] ER last week on 12/06. Spoke with patient on 12/08 who stated his symptoms were mild and refused further treatment. Recommended he follow up in 5-7 days to rechecksymptoms. Today, patient states that his symptoms are slightly improved. Still has rare cough, with scant clear sputum. Admits to rare nausea. Denies fever, chest congestion, nasal congestion, rhinorrhea, SOB,wheezing, sore throat, sore throat, headache, myalgias, new loss of taste/smell, vomiting, diarrhea. Only thing he has been using for symptoms is Vicks in his nose first thing in the morning. Past medical history, appointments, medications, allergies reviewed. Previous Medical History PAST MEDICAL HISTORY Diagnosis Date Cholelithiasis 09/25/2013 Chronic neutrophilia Benign-Dr. 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 Dr. Obregon at [facility] COLONOSCOPY 10/10/2021 repeat in 3 years COLONOSCOPY FLX DX W/COLLJ SPEC WHEN PFRMD 03/12/2011 DEBRIDEMENT OF SKIN, FULL THIC 09/12/2010 LEFT GROIN DEBRIDEMENT OPEN WOUND 20 SQ CM/< 11/22/2010 Debridement posterior neck/I&D LLQ abd DEBRIDEMENT SUBCUTANEOUS TISSUE 20 SQ CM/< 09/11/2010 LEFT GROIN ESOPHAGOGASTRODUODENOSCOPY TRANSORAL DIAGNOSTIC 01/11/2019 EGD HEART SURGERY HX INCISION & DRAINAGE ABSCESS SIMPLE/SINGLE 09/08/2010 I&D abscess left groin INCISION & DRAINAGE ABSCESS SIMPLE/SINGLE 10/23/2010 I&D medial to left groin wound INCISION & DRAINAGE ABSCESS SIMPLE/SINGLE 01/22/2011 I&D LLQ superficial abscess REM LESION TRUNK,ARM, LEG <0.5 CM 03/21/2011 Exc. fibroepithelial polyp LLQ abd REVISION OF AORTIC VALVE 2005 Repair of Aortic Value/Thoracic anerusym repair SKIN BIOPSY HX Family History FAMILY HISTORY Problem Relation Age of Onset No Known Problems Mother Heart Father Bypass and valve replaced Breast Cancer Sister No Known Problems Brother No Known Problems Son No Known Problems Son Patient Allergies ALLERGIES Allergen Reactions Pantoprazole Diarrhea Current Medications Current Outpatient Medications on File Prior to Visit Medication Sig metFORMIN ER (GLUCOPHAGE XR) 500 mg 24 hr tablet Take 2 tablets by mouth twice daily with meals. metFORMIN ER (GLUMETZA) 500 mg 24 hr tablet Take 1 tablet by mouth daily with breakfast. insulin glargine (LANTUS SOLOSTAR U-100 INSULIN) 100 unit/mL (3 mL) Inject 24 Units subcutaneously daily at bedtime. warfarin (COUMADIN) 5 mg tablet 10 mg Saturday and Saturday, 7.5 mg all other days. Patient has INR drawn bi-weekly. metoprolol succinate ER (TOPROL XL) 200 mg 24 hr tablet Take 1 tablet by mouth once daily. dulaglutide (TRULICITY) 1.5 mg/0.5 mL pen injector Inject 1.5 mg subcutaneously one time a week. Inject once per week. Discard Pen After atorvastatin (LIPITOR) 40 mg tablet TAKE 1 TABLET BY MOUTH ONCE DAILY. FOR CHOLESTEROL. losartan (COZAAR) 50 mg tablet Take 1 tablet by mouth once daily. blood sugar diagnostic ([employer] ULTRA TEST) test strip Test blood sugar(s) 3 times daily. Dx: E11.49. Insulin: Yes Docusate Sodium 100 mg tab Take 100 mg by mouth once daily. insulin aspart U-100 (NOVOLOG FLEXPEN U-100 INSULIN) 100 unit/mL (3 mL) Inject with meals accordingto sliding scale: 100-200=3 units, 201-250=5 units, 251- 300=8 units, 301-350=12 units, 351-400=15 units. insulin needles, DISPOSABLE, (BD INSULIN PEN NEEDLE UF) 31 gauge x 5/16 1 Each four times daily. With insulin Current Facility-Administered Medications on File Prior to Visit Medication perflutren lipid microspheres 1.3 mL in NaCl (PF) 0.9% 10 mL injection (DEFINITY) sodium chloride 0.9 % (flush) 10 mL (BD POSIFLUSH) Social History Social History Tobacco Use Smoking status: Never Smoker Smokeless tobacco: Never Used Vaping Use Vaping Use: Never used Substance Use Topics Alcohol use: No Drug use: No Review of Symptoms REVIEW OF SYSTEMS See HPI EXAM: BP 130/70 Pulse (!) 54 Temp 36.8 C (98.2 F) Resp 16 Wt 110.8 kg (244 lb 3.2 oz) SpO2 96% BMI 32.22 kg/m General Appearance: Well appearing, alert, in no acute distress, well-hydrated, well nourished.. Skin: Skin color, texture, turgor normal, no suspicious rashes or lesions. Head: Normocephalic, no masses, lesions, tenderness or abnormalities. Eyes: Anicteric sclera. Pupils are equally round and reactive to light. Extraocular movements are intact. . Ears: External ears normal, canals clear. Lungs: Lungs clear to auscultation. No wheezing, rhonchi, rales.. Heart: RRR without murmur, gallop, or rubs. No ectopy. Abdomen: Normal abdominal exam, Abdomen soft, non-tender. Bowel sounds normal. No masses, organomegaly. Health Maintenance List DTAP,TDAP,TD(3 - Td or Tdap) due on 12/25/2020 ADVANCE DIRECTIVE DISCUSSION Never done COVID-19 VACCINE(4 - Booster for Pfizer series) due on 09/15/2021 DEPRESSION SCREENING due on 10/28/2021 URINE ALBUMIN:CREATININE RATIO due on 11/16/2021 LDL CHOLESTEROL due on 11/16/2021 DIABETIC FOOT EXAM due on 11/23/2021 DILATED RETINAL EXAM due on 02/20/2022 HBA1C due on 02/27/2022 HEMOGLOBIN/HEMATOCRIT due on 03/15/2022 SERUM CREATININE due on 08/30/2022 ANNUAL PCP TEAM CHRONIC DISEASE VISIT due on 12/08/2022 BP CONTROLLED (<130/80) due on 12/08/2022 COLORECTAL CANCER SCREENING due on 10/10/2024 INFLUENZA Completed HEPATITIS C SCREENING Completed SHINGRIX VACCINE Completed PNEUMOCOCCAL: 65+ Completed ASSESSMENT/PLAN: 1. COVID-19 - ICD9: 079.89, ICD10: U07.1 Symptoms improving. Out of isolation and is still wearing his mask. Encouraged him to continue to mask until symptoms completely resolved. Continue supportive care and call if symptoms change/worsen.Red flags for re-assessment reviewed with patient in detail. Abdulaziz Caldera MD documented in this encounterAdams County [facility] Center05-27-2022 History of Present illness Narrative* Abdulaziz Caldera MD - 12/08/2021 4:07 PM EDT Chief Complaint Patient presents with: Covid19 Concern ER F/U In lieu of an in person visit due to coronavirus 19 pandemic concerns, a telephone visit was performed with patient. Patient is aware that I am not fully able to assess symptoms and do a full physical exam including vital signs at this time. Patient consents to the visit HPI Richard Roy is a 76 year old male who presents here today for Above Complaints.. Patient evaluated at [facility] ER on 12/06 for complaint of generalized weakness, cough, and feeling off balance and developed cough which started on 12/04. Denied other COVID symptoms at that time. Lab workup in the ER was unremarkable aside from positive COVID test and INR of 3.3. UA unremarkable. CXR showed some ill defined densities in RLL which was likely 2/2 COVID infection. [place] to be well enough and discharged home without treatment or rx. Since discharge, patient states that his weakness and feeling of balance has resolved. Still has occasional dry cough, nasal congestion, rhinorrhea. Denies: SOB, chest congestion, wheezing, fever/chills, sore throat, headache, myalgias, new loss of taste/smell, nausea, vomiting, diarrhea. Not taking anything OTC for his symptoms. Overall, feels much better. is also positive for COVID and states she is doing well and was able to mow the yard this morning. Has been isolating at home since discharge. Past medical history, appointments, medications, allergies reviewed. Previous Medical History PAST MEDICAL HISTORY Diagnosis Date Cholelithiasis 09/25/2013 Chronic neutrophilia Benign-Dr. 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 Dr. Obregon at [facility] COLONOSCOPY 10/10/2021 repeat in 3 years COLONOSCOPY FLX DX W/COLLJ SPEC WHEN PFRMD 03/12/2011 DEBRIDEMENT OF SKIN, FULL THIC 09/12/2010 LEFT GROIN DEBRIDEMENT OPEN WOUND 20 SQ CM/< 11/22/2010 Debridement posterior neck/I&D LLQ abd DEBRIDEMENT SUBCUTANEOUS TISSUE 20 SQ CM/< 09/11/2010 LEFT GROIN ESOPHAGOGASTRODUODENOSCOPY TRANSORAL DIAGNOSTIC 01/11/2019 EGD HEART SURGERY HX INCISION & DRAINAGE ABSCESS SIMPLE/SINGLE 09/08/2010 I&D abscess left groin INCISION & DRAINAGE ABSCESS SIMPLE/SINGLE 10/23/2010 I&D medial to left groin wound INCISION & DRAINAGE ABSCESS SIMPLE/SINGLE 01/22/2011 I&D LLQ superficial abscess REM LESION TRUNK,ARM, LEG <0.5 CM 03/21/2011 Exc. fibroepithelial polyp LLQ abd REVISION OF AORTIC VALVE 2005 Repair of Aortic Value/Thoracic anerusym repair SKIN BIOPSY HX Family History FAMILY HISTORY Problem Relation Age of Onset No Known Problems Mother Heart Father Bypass and valve replaced Breast Cancer Sister No Known Problems Brother No Known Problems Son No Known Problems Son Patient Allergies ALLERGIES Allergen Reactions Pantoprazole Diarrhea Current Medications Current Outpatient Medications on File Prior to Visit Medication Sig metFORMIN ER (GLUCOPHAGE XR) 500 mg 24 hr tablet Take 2 tablets by mouth twice daily with meals. metFORMIN ER (GLUMETZA) 500 mg 24 hr tablet Take 1 tablet by mouth daily with breakfast. insulin glargine (LANTUS SOLOSTAR U-100 INSULIN) 100 unit/mL (3 mL) Inject 24 Units subcutaneously daily at bedtime. warfarin (COUMADIN) 5 mg tablet 10 mg Saturday and Saturday, 7.5 mg all other days. Patient has INR drawn bi-weekly. metoprolol succinate ER (TOPROL XL) 200 mg 24 hr tablet Take 1 tablet by mouth once daily. dulaglutide (TRULICITY) 1.5 mg/0.5 mL pen injector Inject 1.5 mg subcutaneously one time a week. Inject once per week. Discard Pen After atorvastatin (LIPITOR) 40 mg tablet TAKE 1 TABLET BY MOUTH ONCE DAILY. FOR CHOLESTEROL. losartan (COZAAR) 50 mg tablet Take 1 tablet by mouth once daily. blood sugar diagnostic ([employer] ULTRA TEST) test strip Test blood sugar(s) 3 times daily. Dx: E11.49. Insulin: Yes Docusate Sodium 100 mg tab Take 100 mg by mouth once daily. insulin aspart U-100 (NOVOLOG FLEXPEN U-100 INSULIN) 100 unit/mL (3 mL) Inject with meals accordingto sliding scale: 100-200=3 units, 201-250=5 units, 251- 300=8 units, 301-350=12 units, 351-400=15 units. insulin needles, DISPOSABLE, (BD INSULIN PEN NEEDLE UF) 31 gauge x 5/16 1 Each four times daily. With insulin Current Facility-Administered Medications on File Prior to Visit Medication perflutren lipid microspheres 1.3 mL in NaCl (PF) 0.9% 10 mL injection (DEFINITY) sodium chloride 0.9 % (flush) 10 mL (BD POSIFLUSH) Social History Social History Tobacco Use Smoking status: Never Smoker Smokeless tobacco: Never Used Vaping Use Vaping Use: Never used Substance Use Topics Alcohol use: No Drug use: No Review of Symptoms REVIEW OF SYSTEMS See HPI EXAM: BP 110/64 Pulse 85 General Appearance: Well sounding. Lungs: Patient able to talk in complete sentences without SOB, cough, or audible wheezing. . Health Maintenance List PNEUMOCOCCAL: 65+(1 - PCV) Never done BP CONTROLLED (<130/80) Never done DTAP,TDAP,TD(3 - Td or Tdap) due on 12/25/2020 ADVANCE DIRECTIVE DISCUSSION Never done COVID-19 VACCINE(4 - Booster for Pfizer series) due on 09/15/2021 DEPRESSION SCREENING due on 10/28/2021 URINE ALBUMIN:CREATININE RATIO due on 11/16/2021 LDL CHOLESTEROL due on 11/16/2021 DIABETIC FOOT EXAM due on 11/23/2021 DILATED RETINAL EXAM due on 02/20/2022 HBA1C due on 02/27/2022 HEMOGLOBIN/HEMATOCRIT due on 03/15/2022 SERUM CREATININE due on 08/30/2022 ANNUAL PCP TEAM CHRONIC DISEASE VISIT due on 09/06/2022 COLORECTAL CANCER SCREENING due on 10/10/2024 INFLUENZA Completed HEPATITIS C SCREENING Completed SHINGRIX VACCINE Completed ASSESSMENT/PLAN: 1. COVID-19 - ICD9: 079.89, ICD10: U07.1 Recommend rest, supportive care, and should isolate until: At least 5 days have passed since symptoms first appeared and At least 24 hours have passed since last fever without the use of fever-reducing medications and Symptoms (e.g., cough, shortness of breath) have improved. Should wear mask for at least 5 days after he ends isolation to prevent spread to others. Discussed treatment options with patient including Paxlovid and IV ab. Paxlovid interacts with his following medications: Lipitor, Lantus, metformin, metoprolol, novolog, trulicity. Patient is not interested in taking this medication with all of these interactions. Not interested in driving to [facility] for [place] ab. Since his symptoms are mild, he would prefer to rest at home. Discussed risks and benefits of treatment and that he is high risk for severe infection. Red flags for re-assessment reviewed with patient in detail. I spent a total of 25 minutes on the date of the service which included preparing to see the patient, [id number] patient care, completing clinical documentation, obtaining and/or reviewing separately obtained history, performing a medically appropriate examination, counseling and educating the pat ient/family/caregiver and ordering medications, tests, or procedures. Abdulaziz Caldera MD documented in this encounterAdams County [facility] Center05-27-2022 Miscellaneous Notes* Telephone Encounter - Abdulaziz Caldera MD - 12/08/2021 4:05 PM EDT Scheduled TE now. * Telephone Encounter - Rebecca Esteban LPN - 12/08/2021 3:54 PM EDT Patient telephoned. Declines being treated in the hospital for Covid. States he is unable to use his [facility] for a virtual visit. Requesting if he could do a telephone visit. Rebecca Esteban LPN * Telephone Encounter - Abdulaziz Caldera MD - 12/08/2021 3:35 PM EDT Was he treated while he was in the hospital for COVID? Please pull ER report. Needs VV with one of our providers or with [employer] care online. * Telephone Encounter - Rosa Elena Martinez Pss - 12/08/2021 2:16 PM EDT Patient called stating he was at [facility] ER on 12/06. Tested positive for covid. Patient was informed tocontact the office within 5 days to inform. Please advise patient when he can be seen in office. documented in this encounterAdams County [facility] Center05-09-2022 Miscellaneous Notes* Telephone Encounter - Eulalia Gaston [facility] - 11/20/2021 9:49 AM EDT Patient has been identified by name and date of : Yes Pending Prescriptions Disp Refills METFORMIN ER 500 MG 24 HR TABLET,EXTENDED RELEASE Sig: Take 1 tablet by mouth daily with breakfast. NUHA: No OMAR-09/06/21 Labs-08/30/21 NOV-03/07/22 RX INSTRUCTIONS: Patient aware RX will be sent to pharmacy. No need to notify patient. Eulalia [facility] documented in this encounterAdams County Regional Medical Center04-11-2022 Instructions* Patient Instructions* Marcella Park PA-C - 10/23/2021 1:25 PM EDT -Recommend daily fiber supplement and plenty of fluids The following instructions are important for you related to your office visit today with the [facility]. INSTRUCTIONS FOR DIVERTICULA I recommend that you continue on a high-fiber diet. Avoidance of seeds is not necessary in general. Recent studies have demonstrated that seeds do not increase you risk of developing diverticulitis. If specific foods tend to cause discomfort, those should be avoided. Signs of diverticulitis (inflammation of diverticulosis) include - abdominal distention, fever, abdominal pain typically in the left lower quadrant, and changes of bowel habits. If these symptoms appear, you are instructed to contact our office immediately. If you note any additional difficulties or concerns, you should contact our office immediately. If you note any additional difficulties, questions, or concerns, you should contact our office immediately @ [phone] and ask to be transferred to the General Surgery department. The following instructions are important for you related to your office visit today with the [facility]. INSTRUCTIONS FOLLOWING A POLYP FOUND AT COLONOSCOPY You were found to have an inflammatory polyp. Surveillance interval pending review by Dr. Jones to see if this can be extended from original 3 year recommendation based on benign final pathology. If you note bleeding, change in bowel habits, or other suspicious colon related symptoms before that time, those symptoms should be evaluated as necessary. If you have any difficulties or concerns, you should contact our office immediately. If you note any additional difficulties, questions, or concerns, you should contact our office immediately @ [phone] and ask to be transferred to the General Surgery department. documented in this encounterAdams County Regional Medical Center04-11-2022 History of Present illness Narrative* Marcella Park PA-C - 10/23/2021 1:09 PM EDT FOLLOW UP VISIT - ENDOSCOPY NAME: Richard Bonilla [facility] NO.: [id number] DATE OF SERVICE: 10/23/2021 : 1945 REFERRING PHYSICIAN: Abdulaziz Caldera MD is a patient I am following for screening colonoscopy. Dr. Jones performed lower endoscopy on 10/10/21. The patient was found to have diverticulosis throughout the colon, with a medium-sizedcecal polyp which was removed. Initially a three-year repeat interval was discussed prior to pathology becoming available. Pathology demonstrated: FINAL DIAGNOSIS A. Cecum polyp, biopsy: - Inflammatory polyp. The patient notes no complaints since the procedure. VITALS: Blood pressure 132/56, pulse 85, temperature 36.3 C (97.3 F), weight 114.6 kg (252 lb 9.6 oz), SpO2 98 %. General: patient is alert, cooperative, pleasant and in no acute distress On examination, the abdomen is benign. Assessment IMPRESSION: s/p colonoscopy with polypectomy. Diverticulosis, inflammatory colon polyp PLAN: The operative findings and pathology report were reviewed with the patient, and the patient has hadthe opportunity to ask questions and have questions answered. Reviewed pathology and endoscopy photos with Dr. Jones who has recommended 3 year repeat colonoscopy based on size and appearance of polyp. If the patient notes any problems or changes in bowel function, the patient should contact me immediately. Otherwise I recommend follow up endoscopy in 3 years. HM updated and recall letter generated. Patient verbalized understanding of all above and agreed with the plan Diagnoses: (K57.90) Diverticulosis (primary encounter diagnosis) (K63.5) Cecal polyp I spent a total of 24 minutes on the date of the service which included preparing to see the patient, [id number] patient care, completing clinical documentation, obtaining and/or reviewing separately obtained history, counseling and educating the patient/family/caregiver, communicating with other HCPs (not separately reported), independently interpreting results (not separately reported) and communicating results to the patient/family/caregiver. Marcella Park PA-C documented in this encounterAd[facility] Nurse Note* Caroline Larkin RN - 10/10/2021 9:37 AM EDT Arrived in phase II via cart. Left lateral position. Sedated, but responds to verbal stimuli. Colornormal; skin warm and dry. Respirations wnl and unlabored. Abdomen soft and with + bowel sounds in quads X 4. Patient resting comfortably. Dr. Jones at bedside to review procedure and recommendations. Caroline Larkin RN * Caroline Larkin RN - 10/10/2021 8:52 AM EDT [facility] NURSING HAND OFF NOTE SBAR Hand off given to Brandi Brown RN. Hand off was communicated verbally and at the patient's bedside and all questions were answered. Caroline Larkin RN documented in this encounterAd[facility]03-29-2022 History and physical note * Richard Jones MD - 10/10/2021 8:15 AM EDT UPDATED PROCEDURAL SEDATION HISTORY AND PHYSICAL EXAMINATION SERVICE DATE: 10/10/2021 SERVICE TIME: 8:44 AM PHYSICAL EXAM MUST BE COMPLETED ON ADMISSION PROCEDURE: Procedure Indications: The History and Physical (completed in the past 30 days) has been reviewed and the patient has beenexamined. The contents accurately reflect the patient's condition with the following additions or revisions since the H&P was completed. ASA Class: ASA Class:: Patient with severe systemic disease Examination indicates no changes. AIRWAY: Airway Visualization of Uvula: Yes Mouth opening greater than 2 fingerbreadths: Yes Neck Full Range of Motion: Yes LUNGS: Lungs clear to auscultation CARDIAC: Regular rhythm,Regular rate Provisional Diagnosis/Treatment Plan: screening for colon cancer - colonoscopy SEDATION GOAL: Moderate This H&P can be found in the attached. SIGNATURE: Richard Jones MD PATIENT NAME: Richard Roy DATE: October 10, 2021 TIME: 8:44 AM * Richard Jones MD - 10/10/2021 8:15 AM EDT Images from the original note were not included. HISTORY AND PHYSICAL Richard Roy 1945 REFERRING PHYSICIAN: Abdulaziz Caldera,* CHIEF COMPLAINT: Consult (colonoscopy) HPI: The patient is a 75 year old male referred for endoscopy. notes no colon complaints. Patient denies any change in bowel habits, weight changes, blood in stools, black tarry stools or abdominal pain. Denies family history of colon issues. The patient notes no upper GI complaints. has undergone prior endoscopy. Most recent colonoscopy 03/12/[address] Olsen with no concerning findings, 10 year repeat colonoscopy recommended. Patient's past medical history is significant for hypertension, hyperlipidemia, s/p aortic valve repair, thoracic aneurysm, type II diabetes mellitus, pulmonary embolus. Patient is maintained on warfarin. He follows with Dr. Caldera in primary care for his chronic medical conditions. Patient denies chest pain, shortness of breath or recent hospitalizations. Denies problems with sedation in the past. PAST MEDICAL HISTORY PAST MEDICAL HISTORY Diagnosis Date Cholelithiasis 09/25/2013 Chronic neutrophilia Benign-Dr. 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 Dr. Obregon at [facility] COLONOSCOPY FLX DX W/COLLJ SPEC WHEN PFRMD 03/12/11 DEBRIDEMENT OF SKIN, FULL THIC 3-07-25 LEFT GROIN DEBRIDEMENT OPEN WOUND 20 SQ CM/< 11/22/10 Debridement posterior neck/I&D LLQ abd DEBRIDEMENT SUBCUTANEOUS TISSUE 20 SQ CM/< 09-11-10 LEFT GROIN ESOPHAGOGASTRODUODENOSCOPY TRANSORAL DIAGNOSTIC 01/11/2019 EGD INCISION & DRAINAGE ABSCESS SIMPLE/SINGLE 09/08/10 I&D abscess left groin INCISION & DRAINAGE ABSCESS SIMPLE/SINGLE 10/23/10 I&D medial to left groin wound INCISION & DRAINAGE ABSCESS SIMPLE/SINGLE 01/22/11 I&D LLQ superficial abscess REM LESION TRUNK,ARM, LEG <0.5 CM 03/21/11 Exc. fibroepithelial polyp LLQ abd REVISION OF AORTIC VALVE 2004 Repair of Aortic Value/Thoracic anerusym repair CURRENT MEDICATIONS Current Outpatient Medications Medication Sig dulaglutide (TRULICITY) 1.5 mg/0.5 mL pen injector Inject 1.5 mg subcutaneously one time a week. Inject once per week. Discard Pen After atorvastatin (LIPITOR) 40 mg tablet TAKE 1 TABLET BY MOUTH ONCE DAILY. FOR CHOLESTEROL. metFORMIN ER (GLUCOPHAGE XR) 500 mg 24 hr tablet Take 2 tablets by mouth twice daily with meals. warfarin (COUMADIN) 5 mg tablet 10 mg Saturday and Saturday, 7.5 mg all other days. Patient has INR drawn bi-weekly. losartan (COZAAR) 50 mg tablet Take 1 tablet by mouth once daily. metoprolol succinate ER (TOPROL XL) 200 mg 24 hr tablet Take 1 tablet by mouth once daily. blood sugar diagnostic (Yo que VosUCH ULTRA TEST) test strip Test blood sugar(s) 3 times daily. Dx: E11.49. Insulin: Yes Docusate Sodium 100 mg tab Take 100 mg by mouth once daily. insulin aspart U-100 (NOVOLOG FLEXPEN U-100 INSULIN) 100 unit/mL (3 mL) Inject with meals accordingto sliding scale: 100-200=3 units, 201-250=5 units, 251- 300=8 units, 301-350=12 units, 351-400=15 units. insulin glargine (LANTUS SOLOSTAR U-100 INSULIN) 100 unit/mL (3 mL) Inject 24 Units subcutaneously daily at bedtime. insulin needles, DISPOSABLE, (BD INSULIN PEN NEEDLE UF) 31 gauge x 5/16 1 Each four times daily. With insulin Insulin Syringe-Needle U-100 (BD INSULIN SYRINGE UF II) 0.5 mL 31 gauge x 5/16 syrg Use 1 syringe for insulin injections five (5) times daily as directed. DX: 250.60 Insulin: Yes (Patient not taking:Reported on 08/16/2021 ) Current Facility-Administered Medications Medication Dose Route Frequency perflutren lipid microspheres 1.3 mL in NaCl (PF) 0.9% 10 mL injection (DEFINITY) INTRAVENOUS DIRECTED PRN sodium chloride 0.9 % (flush) 10 mL (BD POSIFLUSH) 10 mL INTRAVENOUS DIRECTED PRN ALLERGIES: Pantoprazole PERSONAL HISTORY: SOCIAL HISTORY Social History Tobacco Use Smoking status: Never Smoker Smokeless tobacco: Never Used Vaping Use Vaping Use: Never used Substance Use Topics Alcohol use: No Drug use: No FAMILY HISTORY: FAMILY HISTORY FAMILY HISTORY Problem Relation Age of Onset No Known Problems Mother Heart Father Bypass and valve replaced Breast Cancer Sister No Known Problems Brother No Known Problems Son No Known Problems Son REVIEW OF SYMPTOMS: The review of systems data was entered by the nurse and reviewed by me Nursing Notes: Cortney Starr LPN 08/16/2021 8:38 AM Signed REVIEW OF SYSTEMS: General: The patient denies fatigue, denies weight loss, denies weight gain, denies feeling hot, and denies feelings of cold. Eyes: The patient denies glaucoma, denies eye injury/surgery, wears glasses or contacts. Ear/Nose/Throat: The patient denies allergies, denies hayfever, denies ear infections, and denies bloody noses. Cardiovascular: The patient denies chest pain, denies heart disease, notes high blood pressure,denies cardiac stent, denies prior heart attack, denies irregular heart beat, notes high cholesterol, denies poor circulation, denies heart failure, other cardiac issues, denies claudication, denies cold feet, denies peripheral arterial stent. Respiratory: The patient denies tuberculosis, denies pneumonia, denies frequent cough, denies pulmonary embolism, denies shortness of breath, and denies coughing up blood. Gastrointestinal: The patient denies difficulty swallowing, denies acid reflux, denies ulcers, denies vomiting, denies jaundice/hepatitis, denies gallbladder problems, denies black or tarry stools, denies hemorrhoids, denies bleeding from rectum, denies diverticulitis, denies constipation, denies diarrhea, denies loss of stool control, and denies hernias. Kidney/Bladder: The patient notes kidney stones, denies urine infections, and denies bloody urine. Skin: The patient denies a history of skin cancer, denies bleeding/changing moles, and denies a history of skin rash. Neurologic: The patient denies a history of epilepsy/convulsions, denies headaches, denies head/spinal injuries, and denies stroke/TIA. Psychiatric: The patient denies psychiatric medications, denies depression, and denies voices, denies substance abuse. Endocrine: The patient denies thyroid disorders, notes diabetes, and denies hormonal problems. Hematologic: The patient denies a history of bruising, denies bleeding, and denies anemia, denies blood clots. Infections: The patient notes a history of measles and mumps, denies rheumatic fever, and denies sexually transmitted diseases. Musculoskeletal: The patient denies back pain/injury, denies back problems, denies sciatica, deniesknee/foot trouble, denies arthritis, or denies gout. When was patient's last Mammogram screening? N/A Last Colonoscopy: 2010 Cortney Starr LPN I have confirmed and edited as necessary, the PFSH and ROS obtained by others. Marcella Park PA-C PHYSICAL EXAMINATION: General: The patient is 75 year old male, well nourished, well hydrated in no acute distress. The patient is oriented to time, place, and person. VITALS: Blood pressure 130/72, pulse 87, temperature 36.2 C (97.2 F), height 185.4 cm (6' 1 ), weight 111.6 kg (246 lb), SpO2 98 %. Body mass index is 32.46 kg/m . HEENT: Normal cephalic, ataumatic, pupils are equally round, sclera are anicteric, mucous membranesare moist, oropharynx is clear. Neck has no masses, asymmetry or lymphadenopathy. Respiratory: Clear to auscultation and percussion. Normal respiratory excursion and pattern. Cardiac: Examination is regular rate and rhythm. Normal S1/S2 Abdominal exam: Soft, nontender, with no palpable masses. No hepatosplenomegaly. No palpable hernias. Extremities: no clubbing, cyanosis or edema. No adenopathy. LABORATORY VALUES: As Noted RADIOLOGIC STUDIES: As Noted Assessment IMPRESSION: encounter for screening colonoscopy PLAN: I have reviewed my findings with the surgeon. Will plan for lower endoscopy. We discussed therisks and benefits of the planned endoscopy. I have informed the patient that complications can occur including failure to complete the endoscopy and perforation. The patient had the opportunity to ask questions concerning the planned endoscopy. My staff has also explained the procedure to the patient in understandable terms and has given the patient printed material concerning the procedure. Thepatient freely consents to surgery. The patient was offered a surgery/procedure at a [facility] facility. I have counseled the patient regarding the risk of exposure to and/or potential harm posed by the COVID-19 virus with having a surgery/procedure at this time versus the risk of delaying the surgery/procedure. It is not possible to know either the risk of delaying the surgery or procedure or chance of getting an infection with perfect accuracy, but a joint decision was made between the patient and myself to proceed at this time with endoscopy. I plan to use Golytely bowel preparation Patient to remain on his anticoagulation for procedure per Dr. Jones Patient instructed to contact PCP for instructions regarding diabetic medication, which may requireadjustment during bowel preparation and/or day of procedure Consultation requested by Dr. Caldera for an opinion regarding screening colonoscopy. My final recommendations will be communicated back to the requesting physician by way of shared Medical record orletter to requesting physician via US mail. Diagnoses: (Z12.11) Encounter for screening for malignant neoplasm of colon (primary encounter diagnosis) Marcella Park PA-C documented in this encounterAd[facility]03-24-2022 Miscellaneous Notes* Telephone Encounter - Mila Castro LPN - 10/05/2021 3:40 PM EDT Spoke with pt and information listed below given. Pt verbalizes understanding. Mila Castro LPN * Telephone Encounter - Violette Lockhart - 10/05/2021 2:21 PM EDT Patient has been identified by name and date of : Yes Pending Prescriptions Disp Refills LANTUS SOLOSTAR U-100 INSULIN 100 UNIT/ML (3 ML) SUBCUTANEOUS PEN 5 Pen 5 Sig: Inject 24 Units subcutaneously daily at bedtime. NUHA: No WARFARIN 5 MG TABLET 180 tablet 3 Si mg Saturday and Saturday, 7.5 mg all other days. Patient has INR drawn bi-weekly. NUHA: No RX INSTRUCTIONS: Please note: Warfarin was last sent to [facility]; he needs a new prescription sent for this medication. 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 Patient aware RX will be sent to pharmacy. No need to notify patient. Violette Lockhart documented in this encounterAd[facility]03-23-2022 Miscellaneous Notes* Telephone Encounter - Nelson Hernandez RN - 10/04/2021 9:01 AM EDT Patient returned call and given provider's message below with verbalized understanding. * Telephone Encounter - Abdulaziz Caldera MD - 10/03/2021 5:26 PM EDT Patient can take metformin on day of procedure. Should hold sliding scale while NPO. Take 1/2 of his Lantus dose the night before he is NPO for procedure. * Telephone Encounter - Halima Diaz RN - 10/03/2021 9:42 AM EDT Patient calls to report he is having a colonoscopy on 10/10/2021 and paperwork says to call providerto receive directions for insulin and oral antidiabetics. Current diabetic medications: Metformin ER 1000 mg twice daily Lantus 24 units at bedtime Novolog 100u/mL sliding scale w/ meals 100-200 = 3 units 201-250 = 5 units 251-300 = 8 units 301-350 = 12 units 351-400 = 15 units Trulicity 1.5 mg weekly Patient reports they told him no instructions needed for Coumadin. Please review and advise, Halima Diaz RN documented in this encounterAd[facility]02-02-2022 Miscellaneous Notes* Telephone Encounter - Garland Vicente - 08/16/2021 9:36 AM EST 10-10-2021 [facility] documented in this encounterAd[facility]01-13-2022 NoteHNO ID: [id number] Author: REY Burt Service: Radiology Author Type: Varitypist Type: Progress Notes Filed: 07/27/2021 10:50 AM Note Text: Radiology Service Progress Note DATE OF SERVICE: July 27, 2021 TIME: 10:49 AM PATIENT IDENTITY VERIFICATION COMPLETED USING TWO (2) STANDARD IDENTIFIERS: Name and Date of confirmed by patient verbally. FALL SCREENING: Has the patient had 2 falls in the last year or 1 fall with injury or currently using an Ambulatory Assistive Device (Walker, Cane, Wheelchair, Crutches, etc.)? No PATIENT GENDER DATA: Male PATIENT RELEVANT IMPLANT DATA REVIEWED: Not Applicable ALLERGIES: Reviewed and unchanged CONTRAST ALLERGY: NO. EXAM: CT -CONTRAST INDUCED NEPHROPATHY RISK FACTORS: Patient age > 60 years CREATININE: Creatinine Date Value Ref Range Status 07/27/2021 1.27 (H) 0.73 - 1.22 mg/dL Final 11/16/2020 1.14 0.73 - 1.22 mg/dL Final 03/14/2020 1.27 (H) 0.73 - 1.22 mg/dL Final eGFR-All Other Races Date Value Ref Range Status 07/27/2021 56 . Final Comment: eGFR (Estimated GFR) Units of measure: [...] eGFR may not accurately reflect actual GFR. Note: On 09/09/2021, the eGFR calculation will be updated to the NKF-ASN Task Force recommended 2020 CKD-EPI creatinine equation which does not include a race variable. For more information or to access a 2020 CKD-EPI calculator, visit the [employer] website at kidney.org/professionals/kdoqi/gfr_calculator. eGFR- Date Value Ref Range Status 07/27/2021 >60 Final P.O.C.T. RESULTS: POC done: Yes, See Lab Tab July 27, 2021 TREATMENT: N/A PERIPHERAL IV DATA: Ambulatory: A peripheral IV was started in the Left upper extremity with a Angio cath: 20 gauge. RADIOLOGY DEPARTMENT: CT; Exam(s) Completed: CTA Cardiac SIGNATURE: REY Burt PATIENT NAME: Richard Roy DATE: July 27, 2021 TIME: 10:49 [id number] History of Past illness Narrative* Problem Noted Date Resolved Date S/P aortic valve replacement 10/25/201401/2016 Pulmonary embolus, right 09/25/2013 018 Callus of foot 09/25/2013 07/20/2019 Tinea of nail 09/25/2013 07/20/2019 Encounter for monitoring Coumadin therapy 201307/20/2019 Overview: INR goal 2.5-3.5 Morbid obesity with BMI of 40.0-44.9, adult 10/1308/19/2017 Skin lesion 03/21/2011 06/20/2016 Cellulitis and abscess 11/22/2010 6 Non-healing surgical wound 09/19/201006/20 Abscess 09/08/2010 06/20/2016 Sciatica 05/04/2009 06/20/2016 documented as of this encounter (statuses as of 10/04/2021) [facility] of Past illness Narrative* Problem Noted Date Resolved Date S/P aortic valve replacement 10/25/201401/2016 Pulmonary embolus, right 09/25/2013 018 Callus of foot 09/25/2013 07/20/2019 Tinea of nail 09/25/2013 07/20/2019 Encounter for monitoring Coumadin therapy 201307/20/2019 Overview: INR goal 2.5-3.5 Morbid obesity with BMI of 40.0-44.9, adult 04/12/201208/19/2017 Skin lesion 03/21/2011 06/20/2016 Cellulitis and abscess 11/22/2010 6 Non-healing surgical wound 09/19/201006/20 Abscess 09/08/2010 06/20/2016 Sciatica 05/04/2009 06/20/2016 documented as of this encounter (statuses as of 10/05/2021) [facility] of Past illness Narrative* Problem Noted Date Resolved Date S/P aortic valve replacement 10/25/201401/2016 Pulmonary embolus, right 09/25/201305/ 018 Callus of foot 09/25/2013 07/20/2019 Tinea of nail 09/25/2013 07/20/2019 Encounter for monitoring Coumadin therapy 201307/20/2019 Overview: INR goal 2.5-3.5 Morbid obesity with BMI of 40.0-44.9, adult 04/12/201208/19/2017 Skin lesion 03/21/2011 06/20/2016 Cellulitis and abscess 11/22/2010 6 Non-healing surgical wound 09/19/201006/20 Abscess 09/08/2010 06/20/2016 Sciatica 05/04/2009 06/20/2016 documented as of this encounter (statuses as of 10/11/2021) [facility] of [facility] illness Narrative* Problem Noted Date Resolved Date S/P aortic valve replacement 10/25/201401/2016 Pulmonary embolus, right 09/25/201305/2 018 Callus of foot 09/25/2013 07/20/2019 Tinea of nail 09/25/2013 07/20/2019 Encounter for monitoring Coumadin therapy 201307/20/2019 Overview: INR goal 2.5-3.5 Morbid obesity with BMI of 40.0-44.9, adult 04/12/201208/19/2017 Skin lesion 03/21/2011 06/20/2016 Cellulitis and abscess 11/22/2010 6 Non-healing surgical wound 09/19/201006/20 Abscess 09/08/2010 06/20/2016 Sciatica 05/04/2009 06/20/2016 documented as of this encounter (statuses as of 10/16/2021) [facility] of [facility] illness Narrative* Problem Noted Date Resolved Date S/P aortic valve replacement 10/25/201401/2016 Pulmonary embolus, right 09/25/201305 018 Callus of foot 09/25/2013 07/20/2019 Tinea of nail 09/25/2013 07/20/2019 Encounter for monitoring Coumadin therapy 201307/20/2019 Overview: INR goal 2.5-3.5 Morbid obesity with BMI of 40.0-44.9, adult 04/12/201208/19/2017 Skin lesion 03/21/2011 06/20/2016 Cellulitis and abscess 11/22/2010 6 Non-healing surgical wound 09/19/201006/20 Abscess 09/08/2010 06/20/2016 Sciatica 05/04/2009 06/20/2016 documented as of this encounter (statuses as of 10/27/2021) [facility] of [facility] illness Narrative* Problem Noted Date Resolved Date S/P aortic valve replacement 10/25/201401/2016 Pulmonary embolus, right 09/25/2013052 018 Callus of foot 09/25/2013 07/20/2019 Tinea of nail 09/25/2013 07/20/2019 Encounter for monitoring Coumadin therapy 201307/20/2019 Overview: INR goal 2.5-3.5 Morbid obesity with BMI of 40.0-44.9, adult 04/12/201208/19/2017 Skin lesion 03/21/2011 06/20/2016 Cellulitis and abscess 11/22/2010 6 Non-healing surgical wound 09/19/201006/20 Abscess 09/08/2010 06/20/2016 Sciatica 05/04/2009 06/20/2016 documented as of this encounter (statuses as of 11/20/2021) [facility] Narrative* Problem Noted Date Resolved Date S/P aortic valve replacement 10/25/201401/2016 Pulmonary embolus, right 09/25/2013 018 Callus of foot 09/25/2013 07/20/2019 Tinea of nail 09/25/2013 07/20/2019 Encounter for monitoring Coumadin therapy 201307/20/2019 Overview: INR goal 2.5-3.5 Morbid obesity with BMI of 40.0-44.9, adult 04/12/201208/19/2017 Skin lesion 03/21/2011 06/20/2016 Cellulitis and abscess 11/22/2010 6 Non-healing surgical wound 09/19/201006/20 Abscess 09/08/2010 06/20/2016 Sciatica 05/04/2009 06/20/2016 documented as of this encounter (statuses as of 12/12/2021) [facility] Narrative* Problem Noted Date Resolved Date S/P aortic valve replacement 10/25/201401/2016 Pulmonary embolus, right 09/25/2013 018 Callus of foot 09/25/2013 07/20/2019 Tinea of nail 09/25/2013 07/20/2019 Encounter for monitoring Coumadin therapy 201307/20/2019 Overview: INR goal 2.5-3.5 Morbid obesity with BMI of 40.0-44.9, adult 04/12/201208/19/2017 Skin lesion 03/21/2011 06/20/2016 Cellulitis and abscess 11/22/2010 6 Non-healing surgical wound 09/19/201006/20 Abscess 09/08/2010 06/20/2016 Sciatica 05/04/2009 06/20/2016 documented as of this encounter (statuses as of 12/13/2021) [facility] Narrative* Problem Noted Date Resolved Date S/P aortic valve replacement 10/25/201401/2016 Pulmonary embolus, right 09/25/201305/ 018 Callus of foot 09/25/2013 07/20/2019 Tinea of nail 09/25/2013 07/20/2019 Encounter for monitoring Coumadin therapy 201307/20/2019 Overview: INR goal 2.5-3.5 Morbid obesity with BMI of 40.0-44.9, adult 04/12/201208/19/2017 Skin lesion 03/21/2011 06/20/2016 Cellulitis and abscess 11/22/2010 6 Non-healing surgical wound 09/19/201006/20 Abscess 09/08/2010 06/20/2016 Sciatica 05/04/2009 06/20/2016 documented as of this encounter (statuses as of 12/14/2021) [facility] of [facility] illness Narrative* Problem Noted Date Resolved Date S/P aortic valve replacement 10/25/201401/2016 Pulmonary embolus, right 09/25/2013052 018 Callus of foot 09/25/2013 07/20/2019 Tinea of nail 09/25/2013 07/20/2019 Encounter for monitoring Coumadin therapy 201307/20/2019 Overview: INR goal 2.5-3.5 Morbid obesity with BMI of 40.0-44.9, adult 04/1 12/201208/19/2017 Skin lesion 03/21/2011 06/20/2016 Cellulitis and abscess 11/22/2010 6 Non-healing surgical wound 09/19/201006/20 Abscess 09/08/2010 06/20/2016 Sciatica 05/04/2009 06/20/2016 documented as of this encounter (statuses as of 01/01/2022) [facility] Narrative* Problem Noted Date Resolved Date S/P aortic valve replacement 10/25/201401/2016 Pulmonary embolus, right 09/25/201305/2 018 Callus of foot 09/25/2013 07/20/2019 Tinea of nail 09/25/2013 07/20/2019 Encounter for monitoring Coumadin therapy 201307/20/2019 Overview: INR goal 2.5-3.5 Morbid obesity with BMI of 40.0-44.9, adult 04/12/201208/19/2017 Skin lesion 03/21/2011 06/20/2016 Cellulitis and abscess 11/22/2010 6 Non-healing surgical wound 09/19/201006/20 Abscess 09/08/2010 06/20/2016 Sciatica 05/04/2009 06/20/2016 documented as of this encounter (statuses as of 01/02/2022) [facility] of [facility] illness Narrative* Problem Noted Date Resolved Date S/P aortic valve replacement 10/25/201401/2016 Pulmonary embolus, right 09/25/201305/2 018 Callus of foot 09/25/2013 07/20/2019 Tinea of nail 09/25/2013 07/20/2019 Encounter for monitoring Coumadin therapy 201307/20/2019 Overview: INR goal 2.5-3.5 Morbid obesity with BMI of 40.0-44.9, adult 04/12/201208/19/2017 Skin lesion 03/21/2011 06/20/2016 Cellulitis and abscess 11/22/2010 6 Non-healing surgical wound 09/19/201006/20 Abscess 09/08/2010 06/20/2016 Sciatica 05/04/2009 06/20/2016 documented as of this encounter (statuses as of 01/02/2022) [facility]04-13-2015 History of Past illness Narrative* Problem Noted Date Resolved Date S/P aortic valve replacement 10/25/201401/2016 Pulmonary embolus, right 09/25/201305/2 018 Callus of foot 09/25/2013 07/20/2019 Tinea of nail 09/25/2013 07/20/2019 Encounter for monitoring Coumadin therapy 201307/20/2019 Overview: INR goal 2.5-3.5 Morbid obesity with BMI of 40.0-44.9, adult 04/12/201208/19/2017 Skin lesion 03/21/2011 06/20/2016 Cellulitis and abscess 11/22/2010 6 Non-healing surgical wound 09/19/201006/20 Abscess 09/08/2010 06/20/2016 Sciatica 05/04/2009 06/20/2016 documented as of this encounter (statuses as of 01/06/2022) [facility]04[facility]13[facility]2015 History of Past illness Narrative* Problem Noted Date Resolved Date S/P aortic valve replacement 10/25/201401/2016 Pulmonary embolus, right 09/25/2013 018 Callus of foot 09/25/2013 07/20/2019 Tinea of nail 09/25/2013 07/20/2019 Encounter for monitoring Coumadin therapy 201307/20/2019 Overview: INR goal 2.5-3.5 Morbid obesity with BMI of 40.0-44.9, adult 04/12/201208/19/2017 Skin lesion 03/21/2011 06/20/2016 Cellulitis and abscess 11/22/2010 6 Non-healing surgical wound 09/19/201006/20 Abscess 09/08/2010 06/20/2016 Sciatica 05/04/2009 06/20/2016 documented as of this encounter (statuses as of 01/10/2022) [facility]04[facility]2015 History of Past illness Narrative* Problem Noted Date Resolved Date S/P aortic valve replacement 10/25/201401/2016 Pulmonary embolus, right 09/25/2013 018 Callus of foot 09/25/2013 07/20/2019 Tinea of nail 09/25/2013 07/20/2019 Encounter for monitoring Coumadin therapy 201307/20/2019 Overview: INR goal 2.5-3.5 Morbid obesity with BMI of 40.0-44.9, adult 04/1 12/201208/19/2017 Skin lesion 03/21/2011 06/20/2016 Cellulitis and abscess 11/22/2010 6 Non-healing surgical wound 09/19/201006/20 Abscess 09/08/2010 06/20/2016 Sciatica 05/04/2009 06/20/2016 documented as of this encounter (statuses as of 01/11/2022) [facility]04[facility]2015 History of Past illness Narrative* Problem Noted Date Resolved Date S/P aortic valve replacement 10/25/201401/2016 Pulmonary embolus, right 09/25/201305/2 018 Callus of foot 09/25/2013 07/20/2019 Tinea of nail 09/25/2013 07/20/2019 Encounter for monitoring Coumadin therapy 201307/20/2019 Overview: INR goal 2.5-3.5 Morbid obesity with BMI of 40.0-44.9, adult 04/12/201208/19/2017 Skin lesion 03/21/2011 06/20/2016 Cellulitis and abscess 11/22/2010 6 Non-healing surgical wound 09/19/201006/20 Abscess 09/08/2010 06/20/2016 Sciatica 05/04/2009 06/20/2016 documented as of this encounter (statuses as of 01/12/2022) [facility]2015 History of Past illness Narrative* Problem Noted Date Resolved Date S/P aortic valve replacement 10/25/201401/2016 Pulmonary embolus, right 09/25/201305 018 Callus of foot 09/25/2013 07/20/2019 Tinea of nail 09/25/2013 07/20/2019 Encounter for monitoring Coumadin therapy 201307/20/2019 Overview: INR goal 2.5-3.5 Morbid obesity with BMI of 40.0-44.9, adult 04/12/201208/19/2017 Skin lesion 03/21/2011 06/20/2016 Cellulitis and abscess 11/22/2010 6 Non-healing surgical wound 09/19/201006/20 Abscess 09/08/2010 06/20/2016 Sciatica 05/04/2009 06/20/2016 documented as of this encounter (statuses as of 01/12/2022) [facility]2015 History of Past illness Narrative* Problem Noted Date Resolved Date S/P aortic valve replacement 10/25/201401/2016 Pulmonary embolus, right 09/25/201305 018 Callus of foot 09/25/2013 07/20/2019 Tinea of nail 09/25/2013 07/20/2019 Encounter for monitoring Coumadin therapy 201307/20/2019 Overview: INR goal 2.5-3.5 Morbid obesity with BMI of 40.0-44.9, adult 04/12/201208/19/2017 Skin lesion 03/21/2011 06/20/2016 Cellulitis and abscess 11/22/2010 6 Non-healing surgical wound 09/19/201006/20 Abscess 09/08/2010 06/20/2016 Sciatica 05/04/2009 06/20/2016 documented as of this encounter (statuses as of 01/19/2022) [facility]04[facility]2015 History of Past illness Narrative* Problem Noted Date Resolved Date S/P aortic valve replacement 10/25/201401/2016 Pulmonary embolus, right 09/25/2013052 018 Callus of foot 09/25/2013 07/20/2019 Tinea of nail 09/25/2013 07/20/2019 Encounter for monitoring Coumadin therapy 201307/20/2019 Overview: INR goal 2.5-3.5 Morbid obesity with BMI of 40.0-44.9, adult 04/12/201208/19/2017 Skin lesion 03/21/2011 06/20/2016 Cellulitis and abscess 11/22/2010 6 Non-healing surgical wound 09/19/201006/20 Abscess 09/08/2010 06/20/2016 Sciatica 05/04/2009 06/20/2016 documented as of this encounter (statuses as of 01/23/2022) [facility]04[facility]2015 History of Past illness Narrative* Problem Noted Date Resolved Date S/P aortic valve replacement 10/25/201401/2016 Pulmonary embolus, right 09/25/201305/2 018 Callus of foot 09/25/2013 07/20/2019 Tinea of nail 09/25/2013 07/20/2019 Encounter for monitoring Coumadin therapy 201307/20/2019 Overview: INR goal 2.5-3.5 Morbid obesity with BMI of 40.0-44.9, adult 04/12/201208/19/2017 Skin lesion 03/21/2011 06/20/2016 Cellulitis and abscess 11/22/2010 6 Non-healing surgical wound 09/19/201006/20 Abscess 09/08/2010 06/20/2016 Sciatica 05/04/2009 06/20/2016 documented as of this encounter (statuses as of 01/25/2022) [facility]04[facility]2015 History of Past illness Narrative* Problem Noted Date Resolved Date S/P aortic valve replacement 10/25/201401/2016 Pulmonary embolus, right 09/25/201308/19/2 018 Callus of foot 09/25/2013 07/20/2019 Tinea of nail 09/25/2013 07/20/2019 Encounter for monitoring Coumadin therapy 201307/20/2019 Overview: INR goal 2.5-3.5 Morbid obesity with BMI of 40.0-44.9, adult 04/12/201208/19/2017 Skin lesion 03/21/2011 06/20/2016 Cellulitis and abscess 11/22/2010 6 Non-healing surgical wound 09/19/201006/20 Abscess 09/08/2010 06/20/2016 Sciatica 05/04/2009 06/20/2016 documented as of this encounter (statuses as of 01/30/2022) [facility]04[facility]2015 History of Past illness Narrative* Problem Noted Date Resolved Date S/P aortic valve replacement 10/25/201401/2016 Pulmonary embolus, right 09/25/201305/2 018 Callus of foot 09/25/2013 07/20/2019 Tinea of nail 09/25/2013 07/20/2019 Encounter for monitoring Coumadin therapy 201307/20/2019 Overview: INR goal 2.5-3.5 Morbid obesity with BMI of 40.0-44.9, adult 04/12/201208/19/2017 Skin lesion 03/21/2011 06/20/2016 Cellulitis and abscess 11/22/2010 6 Non-healing surgical wound 09/19/201006/20 Abscess 09/08/2010 06/20/2016 Sciatica 05/04/2009 06/20/2016 documented as of this encounter (statuses as of 02/01/2022) [facility]04[facility]2015 History of Past illness Narrative* Problem Noted Date Resolved Date S/P aortic valve replacement 10/25/201401/2016 Pulmonary embolus, right 09/25/2013 018 Callus of foot 09/25/2013 07/20/2019 Tinea of nail 09/25/2013 07/20/2019 Encounter for monitoring Coumadin therapy 201307/20/2019 Overview: INR goal 2.5-3.5 Morbid obesity with BMI of 40.0-44.9, adult 04/12/201208/19/2017 Skin lesion 03/21/2011 06/20/2016 Cellulitis and abscess 11/22/2010 6 Non-healing surgical wound 09/19/201006/20 Abscess 09/08/2010 06/20/2016 Sciatica 05/04/2009 06/20/2016 documented as of this encounter (statuses as of 02/02/2022) [facility]04[facility]2015 History of Past illness Narrative* Problem Noted Date Resolved Date S/P aortic valve replacement 10/25/201401/2016 Pulmonary embolus, right 09/25/2013052 018 Callus of foot 09/25/2013 07/20/2019 Tinea of nail 09/25/2013 07/20/2019 Encounter for monitoring Coumadin therapy 201307/20/2019 Overview: INR goal 2.5-3.5 Morbid obesity with BMI of 40.0-44.9, adult 04/1 12/201208/19/2017 Skin lesion 03/21/2011 06/20/2016 Cellulitis and abscess 11/22/2010 6 Non-healing surgical wound 09/19/201006/20 Abscess 09/08/2010 06/20/2016 Sciatica 05/04/2009 06/20/2016 documented as of this encounter (statuses as of 02/02/2022) [facility]04[facility]2015 History of Past illness Narrative* Problem Noted Date Resolved Date S/P aortic valve replacement 10/25/201401/2016 Pulmonary embolus, right 09/25/201305/2 018 Callus of foot 09/25/2013 07/20/2019 Tinea of nail 09/25/2013 07/20/2019 Encounter for monitoring Coumadin therapy 201307/20/2019 Overview: INR goal 2.5-3.5 Morbid obesity with BMI of 40.0-44.9, adult 04/12/201208/19/2017 Skin lesion 03/21/2011 06/20/2016 Cellulitis and abscess 11/22/2010 6 Non-healing surgical wound 09/19/201006/20 Abscess 09/08/2010 06/20/2016 Sciatica 05/04/2009 06/20/2016 documented as of this encounter (statuses as of 02/06/2022) [facility]04[facility]2015 History of Past illness Narrative* Problem Noted Date Resolved Date S/P aortic valve replacement 10/25/201401/2016 Pulmonary embolus, right 09/25/201305/2 018 Callus of foot 09/25/2013 07/20/2019 Tinea of nail 09/25/2013 07/20/2019 Encounter for monitoring Coumadin therapy 201307/20/2019 Overview: INR goal 2.5-3.5 Morbid obesity with BMI of 40.0-44.9, adult 04/12/201208/19/2017 Skin lesion 03/21/2011 06/20/2016 Cellulitis and abscess 11/22/2010 6 Non-healing surgical wound 09/19/201006/20 Abscess 09/08/2010 06/20/2016 Sciatica 05/04/2009 06/20/2016 documented as of this encounter (statuses as of 02/09/2022) [facility]04[facility]2015 History of Past illness Narrative* Problem Noted Date Resolved Date S/P aortic valve replacement 10/25/201401/2016 Pulmonary embolus, right 09/25/2013 018 Callus of foot 09/25/2013 07/20/2019 Tinea of nail 09/25/2013 07/20/2019 Encounter for monitoring Coumadin therapy 201307/20/2019 Overview: INR goal 2.5-3.5 Morbid obesity with BMI of 40.0-44.9, adult 04/12/201208/19/2017 Skin lesion 03/21/2011 06/20/2016 Cellulitis and abscess 11/22/2010 6 Non-healing surgical wound 09/19/201006/20 Abscess 09/08/2010 06/20/2016 Sciatica 05/04/2009 06/20/2016 documented as of this encounter (statuses as of 02/14/2022) [facility]04[facility]2015 History of Past illness Narrative* Problem Noted Date Resolved Date S/P aortic valve replacement 10/25/201401/2016 Pulmonary embolus, right 09/25/2013 018 Callus of foot 09/25/2013 07/20/2019 Tinea of nail 09/25/2013 07/20/2019 Encounter for monitoring Coumadin therapy 201307/20/2019 Overview: INR goal 2.5-3.5 Morbid obesity with BMI of 40.0-44.9, adult 04/12/201208/19/2017 Skin lesion 03/21/2011 06/20/2016 Cellulitis and abscess 11/22/2010 6 Non-healing surgical wound 09/19/201006/20 Abscess 09/08/2010 06/20/2016 Sciatica 05/04/2009 06/20/2016 documented as of this encounter (statuses as of 02/26/2022) [facility]04[facility]2015 History of Past illness Narrative* Problem Noted Date Resolved Date S/P aortic valve replacement 10/25/201401/2016 Pulmonary embolus, right 09/25/201305 018 Callus of foot 09/25/2013 07/20/2019 Tinea of nail 09/25/2013 07/20/2019 Encounter for monitoring Coumadin therapy 201307/20/2019 Overview: INR goal 2.5-3.5 Morbid obesity with BMI of 40.0-44.9, adult 04/12/201208/19/2017 Skin lesion 03/21/2011 06/20/2016 Cellulitis and abscess 11/22/2010 6 Non-healing surgical wound 09/19/201006/20 Abscess 09/08/2010 06/20/2016 Sciatica 05/04/2009 06/20/2016 documented as of this encounter (statuses as of 03/02/2022) [facility]04[facility]2015 History of Past illness Narrative* Problem Noted Date Resolved Date S/P aortic valve replacement 10/25/201401/2016 Pulmonary embolus, right 09/25/2013 018 Callus of foot 09/25/2013 07/20/2019 Tinea of nail 09/25/2013 07/20/2019 Encounter for monitoring Coumadin therapy 201307/20/2019 Overview: INR goal 2.5-3.5 Morbid obesity with BMI of 40.0-44.9, adult 04/12/201208/19/2017 Skin lesion 03/21/2011 06/20/2016 Cellulitis and abscess 11/22/2010 6 Non-healing surgical wound 09/19/201006/20 Abscess 09/08/2010 06/20/2016 Sciatica 05/04/2009 06/20/2016 documented as of this encounter (statuses as of 03/05/2022) [facility]04[facility]2015 History of Past illness Narrative* Problem Noted Date Resolved Date S/P aortic valve replacement 10/25/201401/2016 Pulmonary embolus, right 09/25/201305/2 018 Callus of foot 09/25/2013 07/20/2019 Tinea of nail 09/25/2013 07/20/2019 Encounter for monitoring Coumadin therapy 201307/20/2019 Overview: INR goal 2.5-3.5 Morbid obesity with BMI of 40.0-44.9, adult 04/12/201208/19/2017 Skin lesion 03/21/2011 06/20/2016 Cellulitis and abscess 11/22/2010 6 Non-healing surgical wound 09/19/201006/20 Abscess 09/08/2010 06/20/2016 Sciatica 05/04/2009 06/20/2016 documented as of this encounter (statuses as of 03/07/2022) [facility]04[facility]2015 History of Past illness Narrative* Problem Noted Date Resolved Date S/P aortic valve replacement 10/25/201401/2016 Pulmonary embolus, right 09/25/2013 018 Callus of foot 09/25/2013 07/20/2019 Tinea of nail 09/25/2013 07/20/2019 Encounter for monitoring Coumadin therapy 201307/20/2019 Overview: INR goal 2.5-3.5 Morbid obesity with BMI of 40.0-44.9, adult 04/12/201208/19/2017 Skin lesion 03/21/2011 06/20/2016 Cellulitis and abscess 11/22/2010 6 Non-healing surgical wound 09/19/201006/20 Abscess 09/08/2010 06/20/2016 Sciatica 05/04/2009 06/20/2016 documented as of this encounter (statuses as of 03/08/2022) [facility]04[facility]2015 History of Past illness Narrative* Problem Noted Date Resolved Date S/P aortic valve replacement 10/25/201401/2016 Pulmonary embolus, right 09/25/201305/2 018 Callus of foot 09/25/2013 07/20/2019 Tinea of nail 09/25/2013 07/20/2019 Encounter for monitoring Coumadin therapy 201307/20/2019 Overview: INR goal 2.5-3.5 Morbid obesity with BMI of 40.0-44.9, adult 04/12/201208/19/2017 Skin lesion 03/21/2011 06/20/2016 Cellulitis and abscess 11/22/2010 6 Non-healing surgical wound 09/19/201006/20 Abscess 09/08/2010 06/20/2016 Sciatica 05/04/2009 06/20/2016 documented as of this encounter (statuses as of 03/09/2022) [facility]2015 History of Past illness Narrative* Problem Noted Date Resolved Date S/P aortic valve replacement 10/25/201401/2016 Pulmonary embolus, right 09/25/201305 018 Callus of foot 09/25/2013 07/20/2019 Tinea of nail 09/25/2013 07/20/2019 Encounter for monitoring Coumadin therapy 201307/20/2019 Overview: INR goal 2.5-3.5 Morbid obesity with BMI of 40.0-44.9, adult 04/12/201208/19/2017 Skin lesion 03/21/2011 06/20/2016 Cellulitis and abscess 11/22/2010 6 Non-healing surgical wound 09/19/201006/20 Abscess 09/08/2010 06/20/2016 Sciatica 05/04/2009 06/20/2016 documented as of this encounter (statuses as of 03/12/2022) [facility] History of Past illness Narrative* Problem Noted Date Resolved Date S/P aortic valve replacement 10/25/201401/2016 Pulmonary embolus, right 09/25/2013052 018 Callus of foot 09/25/2013 07/20/2019 Tinea of nail 09/25/2013 07/20/2019 Encounter for monitoring Coumadin therapy 201307/20/2019 Overview: INR goal 2.5-3.5 Morbid obesity with BMI of 40.0-44.9, adult 04/12/201208/19/2017 Skin lesion 03/21/2011 06/20/2016 Cellulitis and abscess 11/22/2010 6 Non-healing surgical wound 09/19/201006/20 Abscess 09/08/2010 06/20/2016 Sciatica 05/04/2009 06/20/2016 documented as of this encounter (statuses as of 03/16/2022) [facility] History of Past illness Narrative* Problem Noted Date Resolved Date S/P aortic valve replacement 10/25/201401/2016 Pulmonary embolus, right 09/25/2013 018 Callus of foot 09/25/2013 07/20/2019 Tinea of nail 09/25/2013 07/20/2019 Encounter for monitoring Coumadin therapy 201307/20/2019 Overview: INR goal 2.5-3.5 Morbid obesity with BMI of 40.0-44.9, adult 04/12/201208/19/2017 Skin lesion 03/21/2011 06/20/2016 Cellulitis and abscess 11/22/2010 6 Non-healing surgical wound 09/19/201006/20 Abscess 09/08/2010 06/20/2016 Sciatica 05/04/2009 06/20/2016 documented as of this encounter (statuses as of 03/23/2022) [facility] History of Past illness Narrative* Problem Noted Date Resolved Date S/P aortic valve replacement 10/25/201401/2016 Pulmonary embolus, right 09/25/2013 018 Callus of foot 09/25/2013 07/20/2019 Tinea of nail 09/25/2013 07/20/2019 Encounter for monitoring Coumadin therapy 201307/20/2019 Overview: INR goal 2.5-3.5 Morbid obesity with BMI of 40.0-44.9, adult 04/12/201208/19/2017 Skin lesion 03/21/2011 06/20/2016 Cellulitis and abscess 11/22/2010 6 Non-healing surgical wound 09/19/201006/20 Abscess 09/08/2010 06/20/2016 Sciatica 05/04/2009 06/20/2016 documented as of this encounter (statuses as of 04/03/2022) [facility] History of Past illness Narrative* Problem Noted Date Resolved Date S/P aortic valve replacement 10/25/201401/2016 Pulmonary embolus, right 09/25/2013 018 Callus of foot 09/25/2013 07/20/2019 Tinea of nail 09/25/2013 07/20/2019 Encounter for monitoring Coumadin therapy 201307/20/2019 Overview: INR goal 2.5-3.5 Morbid obesity with BMI of 40.0-44.9, adult 04/12/201208/19/2017 Skin lesion 03/21/2011 06/20/2016 Cellulitis and abscess 11/22/2010 6 Non-healing surgical wound 09/19/201006/20 Abscess 09/08/2010 06/20/2016 Sciatica 05/04/2009 06/20/2016 documented as of this encounter (statuses as of 04/04/2022) [facility] History of Past illness Narrative* Problem Noted Date Resolved Date S/P aortic valve replacement 10/25/201401/2016 Pulmonary embolus, right 09/25/2013 018 Callus of foot 09/25/2013 07/20/2019 Tinea of nail 09/25/2013 07/20/2019 Encounter for monitoring Coumadin therapy 201307/20/2019 Overview: INR goal 2.5-3.5 Morbid obesity with BMI of 40.0-44.9, adult 04/12/201208/19/2017 Skin lesion 03/21/2011 06/20/2016 Cellulitis and abscess 11/22/2010 6 Non-healing surgical wound 09/19/201006/20 Abscess 09/08/2010 06/20/2016 Sciatica 05/04/2009 06/20/2016 documented as of this encounter (statuses as of 04/06/2022) [facility] History of Past illness Narrative* Problem Noted Date Resolved Date S/P aortic valve replacement 10/25/201401/2016 Pulmonary embolus, right 09/25/201305/2 018 Callus of foot 09/25/2013 07/20/2019 Tinea of nail 09/25/2013 07/20/2019 Encounter for monitoring Coumadin therapy 201307/20/2019 Overview: INR goal 2.5-3.5 Morbid obesity with BMI of 40.0-44.9, adult 04/12/201208/19/2017 Skin lesion 03/21/2011 06/20/2016 Cellulitis and abscess 11/22/2010 6 Non-healing surgical wound 09/19/201006/20 Abscess 09/08/2010 06/20/2016 Sciatica 05/04/2009 06/20/2016 documented as of this encounter (statuses as of 04/17/2022) [facility] History of Past illness Narrative* Problem Noted Date Resolved Date S/P aortic valve replacement 10/25/201401/2016 Pulmonary embolus, right 09/25/2013 018 Callus of foot 09/25/2013 07/20/2019 Tinea of nail 09/25/2013 07/20/2019 Encounter for monitoring Coumadin therapy 201307/20/2019 Overview: INR goal 2.5-3.5 Morbid obesity with BMI of 40.0-44.9, adult 04/12/201208/19/2017 Skin lesion 03/21/2011 06/20/2016 Cellulitis and abscess 11/22/2010 6 Non-healing surgical wound 09/19/201006/20 Abscess 09/08/2010 06/20/2016 Sciatica 05/04/2009 06/20/2016 documented as of this encounter (statuses as of 04/17/2022) [facility] History of Past illness Narrative* Problem Noted Date Resolved Date S/P aortic valve replacement 10/25/201401/2016 Pulmonary embolus, right 09/25/20132 018 Callus of foot 09/25/2013 07/20/2019 Tinea of nail 09/25/2013 07/20/2019 Encounter for monitoring Coumadin therapy 201307/20/2019 Overview: INR goal 2.5-3.5 Morbid obesity with BMI of 40.0-44.9, adult 04/12/201208/19/2017 Skin lesion 03/21/2011 06/20/2016 Cellulitis and abscess 11/22/2010 6 Non-healing surgical wound 09/19/201006/20 Abscess 09/08/2010 06/20/2016 Sciatica 05/04/2009 06/20/2016 documented as of this encounter (statuses as of 04/19/2022) [facility] History of Past illness Narrative* Problem Noted Date Resolved Date S/P aortic valve replacement 10/25/201401/2016 Pulmonary embolus, right 09/25/2013 018 Callus of foot 09/25/2013 07/20/2019 Tinea of nail 09/25/2013 07/20/2019 Encounter for monitoring Coumadin therapy 201307/20/2019 Overview: INR goal 2.5-3.5 Morbid obesity with BMI of 40.0-44.9, adult 04/12/201208/19/2017 Skin lesion 03/21/2011 06/20/2016 Cellulitis and abscess 11/22/2010 6 Non-healing surgical wound 09/19/201006/20 Abscess 09/08/2010 06/20/2016 Sciatica 05/04/2009 06/20/2016 documented as of this encounter (statuses as of 05/16/2022) [facility] History of Past illness Narrative* Problem Noted Date Resolved Date S/P aortic valve replacement 10/25/201401/2016 Pulmonary embolus, right 09/25/201305 018 Callus of foot 09/25/2013 07/20/2019 Tinea of nail 09/25/2013 07/20/2019 Encounter for monitoring Coumadin therapy 201307/20/2019 Overview: INR goal 2.5-3.5 Morbid obesity with BMI of 40.0-44.9, adult 04/12/201208/19/2017 Skin lesion 03/21/2011 06/20/2016 Cellulitis and abscess 11/22/2010 6 Non-healing surgical wound 09/19/201006/20 Abscess 09/08/2010 06/20/2016 Sciatica 05/04/2009 06/20/2016 documented as of this encounter (statuses as of 06/25/2022) [facility] History of Past illness Narrative* Problem Noted Date Resolved Date S/P aortic valve replacement 10/25/201401/2016 Pulmonary embolus, right 09/25/2013 0205/ 018 Callus of foot 09/25/2013 07/20/2019 Tinea of nail 09/25/2013 07/20/2019 Encounter for monitoring Coumadin therapy 201307/20/2019 Overview: INR goal 2.5-3.5 Morbid obesity with BMI of 40.0-44.9, adult 04/12/201208/19/2017 Skin lesion 03/21/2011 06/20/2016 Cellulitis and abscess 11/22/2010 6 Non-healing surgical wound 09/19/201006/20 Abscess 09/08/2010 06/20/2016 Sciatica 05/04/2009 06/20/2016 documented as of this encounter (statuses as of 07/14/2022) [facility] History of Past illness Narrative* Problem Noted Date Resolved Date S/P aortic valve replacement 10/25/201401/2016 Pulmonary embolus, right 09/25/2013 018 Callus of foot 09/25/2013 07/20/2019 Tinea of nail 09/25/2013 07/20/2019 Encounter for monitoring Coumadin therapy 201307/20/2019 Overview: INR goal 2.5-3.5 Morbid obesity with BMI of 40.0-44.9, adult 04/12/201208/19/2017 Skin lesion 03/21/2011 06/20/2016 Cellulitis and abscess 11/22/2010 6 Non-healing surgical wound 09/19/201006/20 Abscess 09/08/2010 06/20/2016 Sciatica 05/04/2009 06/20/2016 documented as of this encounter (statuses as of 07/15/2022) [facility] History of Past illness Narrative* Problem Noted Date Resolved Date S/P aortic valve replacement 10/25/201401/2016 Pulmonary embolus, right 09/25/2013 018 Callus of foot 09/25/2013 07/20/2019 Tinea of nail 09/25/2013 07/20/2019 Encounter for monitoring Coumadin therapy 201307/20/2019 Overview: INR goal 2.5-3.5 Morbid obesity with BMI of 40.0-44.9, adult 04/12/201208/19/2017 Skin lesion 03/21/2011 06/20/2016 Cellulitis and abscess 11/22/2010 6 Non-healing surgical wound 09/19/201006/20 Abscess 09/08/2010 06/20/2016 Sciatica 05/04/2009 06/20/2016 documented as of this encounter (statuses as of 07/18/2022) [facility] History of Past illness Narrative* Problem Noted Date Resolved Date S/P aortic valve replacement 10/25/201401/2016 Pulmonary embolus, right 09/25/2013052 018 Callus of foot 09/25/2013 07/20/2019 Tinea of nail 09/25/2013 07/20/2019 Encounter for monitoring Coumadin therapy 201307/20/2019 Overview: INR goal 2.5-3.5 Morbid obesity with BMI of 40.0-44.9, adult 0412/201208/19/2017 Skin lesion 03/21/2011 06/20/2016 Cellulitis and abscess 11/22/2010 6 Non-healing surgical wound 09/19/201006/20 Abscess 09/08/2010 06/20/2016 Sciatica 05/04/2009 06/20/2016 documented as of this encounter (statuses as of 07/18/2022) [facility] History of Past illness Narrative* Problem Noted Date Resolved Date S/P aortic valve replacement 10/25/201401/2016 Pulmonary embolus, right 09/25/201305/2 018 Callus of foot 09/25/2013 07/20/2019 Tinea of nail 09/25/2013 07/20/2019 Encounter for monitoring Coumadin therapy 201307/20/2019 Overview: INR goal 2.5-3.5 Morbid obesity with BMI of 40.0-44.9, adult 04/1 12/201208/19/2017 Skin lesion 03/21/2011 06/20/2016 Cellulitis and abscess 11/22/2010 6 Non-healing surgical wound 09/19/201006/20 Abscess 09/08/2010 06/20/2016 Sciatica 05/04/2009 06/20/2016 documented as of this encounter (statuses as of 07/19/2022) [facility]04[facility]13-2015 History of Past illness Narrative* Problem Noted Date Resolved Date S/P aortic valve replacement 10/25/201401/2016 Pulmonary embolus, right 09/25/201305/2 018 Callus of foot 09/25/2013 07/20/2019 Tinea of nail 09/25/2013 07/20/2019 Encounter for monitoring Coumadin therapy 201307/20/2019 Overview: INR goal 2.5-3.5 Morbid obesity with BMI of 40.0-44.9, adult 04/12/201208/19/2017 Skin lesion 03/21/2011 06/20/2016 Cellulitis and abscess 11/22/2010 6 Non-healing surgical wound 09/19/201006/20 Abscess 09/08/2010 06/20/2016 Sciatica 05/04/2009 06/20/2016 documented as of this encounter (statuses as of 07/20/2022) [facility]2015 History of Past illness Narrative* Problem Noted Date Resolved Date S/P aortic valve replacement 10/25/201401/2016 Pulmonary embolus, right 09/25/201305/2 018 Callus of foot 09/25/2013 07/20/2019 Tinea of nail 09/25/2013 07/20/2019 Encounter for monitoring Coumadin therapy 201307/20/2019 Overview: INR goal 2.5-3.5 Morbid obesity with BMI of 40.0-44.9, adult 04/12/201208/19/2017 Skin lesion 03/21/2011 06/20/2016 Cellulitis and abscess 11/22/2010 6 Non-healing surgical wound 09/19/201006/20 Abscess 09/08/2010 06/20/2016 Sciatica 05/04/2009 06/20/2016 documented as of this encounter (statuses as of 07/25/2022) [facility]2015 History of Past illness Narrative* Problem Noted Date Resolved Date S/P aortic valve replacement 10/25/201401/2016 Pulmonary embolus, right 09/25/2013 018 Callus of foot 09/25/2013 07/20/2019 Tinea of nail 09/25/2013 07/20/2019 Encounter for monitoring Coumadin therapy 201307/20/2019 Overview: INR goal 2.5-3.5 Morbid obesity with BMI of 40.0-44.9, adult 04/12/201208/19/2017 Skin lesion 03/21/2011 06/20/2016 Cellulitis and abscess 11/22/2010 6 Non-healing surgical wound 09/19/201006/20 Abscess 09/08/2010 06/20/2016 Sciatica 05/04/2009 06/20/2016 documented as of this encounter (statuses as of 07/26/2022) [facility] History of Past illness Narrative* Problem Noted Date Resolved Date S/P aortic valve replacement 10/25/201401/2016 Pulmonary embolus, right 09/25/201305 018 Callus of foot 09/25/2013 07/20/2019 Tinea of nail 09/25/2013 07/20/2019 Encounter for monitoring Coumadin therapy 201307/20/2019 Overview: INR goal 2.5-3.5 Morbid obesity with BMI of 40.0-44.9, adult 04/12/201208/19/2017 Skin lesion 03/21/2011 06/20/2016 Cellulitis and abscess 11/22/2010 6 Non-healing surgical wound 09/19/201006/20 Abscess 09/08/2010 06/20/2016 Sciatica 05/04/2009 06/20/2016 documented as of this encounter (statuses as of 07/27/2022) [facility] History of Past illness Narrative* Problem Noted Date Resolved Date S/P aortic valve replacement 10/25/201401/2016 Pulmonary embolus, right 09/25/2013 018 Callus of foot 09/25/2013 07/20/2019 Tinea of nail 09/25/2013 07/20/2019 Encounter for monitoring Coumadin therapy 201307/20/2019 Overview: INR goal 2.5-3.5 Morbid obesity with BMI of 40.0-44.9, adult 04/12/201208/19/2017 Skin lesion 03/21/2011 06/20/2016 Cellulitis and abscess 11/22/2010 6 Non-healing surgical wound 09/19/201006/20 Abscess 09/08/2010 06/20/2016 Sciatica 05/04/2009 06/20/2016 documented as of this encounter (statuses as of 07/31/2022) [facility] History of Past illness Narrative* Problem Noted Date Resolved Date S/P aortic valve replacement 10/25/201401/2016 Pulmonary embolus, right 09/25/2013 018 Callus of foot 09/25/2013 07/20/2019 Tinea of nail 09/25/2013 07/20/2019 Encounter for monitoring Coumadin therapy 201307/20/2019 Overview: INR goal 2.5-3.5 Morbid obesity with BMI of 40.0-44.9, adult 04/12/201208/19/2017 Skin lesion 03/21/2011 06/20/2016 Cellulitis and abscess 11/22/2010 6 Non-healing surgical wound 09/19/201006/20 Abscess 09/08/2010 06/20/2016 Sciatica 05/04/2009 06/20/2016 documented as of this encounter (statuses as of 08/06/2022) [facility] History of Past illness Narrative* Problem Noted Date Resolved Date S/P aortic valve replacement 10/25/201401/2016 Pulmonary embolus, right 09/25/201305 018 Callus of foot 09/25/2013 07/20/2019 Tinea of nail 09/25/2013 07/20/2019 Encounter for monitoring Coumadin therapy 201307/20/2019 Overview: INR goal 2.5-3.5 Morbid obesity with BMI of 40.0-44.9, adult 04/12/201208/19/2017 Skin lesion 03/21/2011 06/20/2016 Cellulitis and abscess 11/22/2010 6 Non-healing surgical wound 09/19/201006/20 Abscess 09/08/2010 06/20/2016 Sciatica 05/04/2009 06/20/2016 documented as of this encounter (statuses as of 08/07/2022) [address]13-2015 History of Past illness Narrative* Problem Noted Date Resolved Date S/P aortic valve replacement 10/25/201401/2016 Pulmonary embolus, right 09/25/2013052 018 Callus of foot 09/25/2013 07/20/2019 Tinea of nail 09/25/2013 07/20/2019 Encounter for monitoring Coumadin therapy 201307/20/2019 Overview: INR goal 2.5-3.5 Morbid obesity with BMI of 40.0-44.9, adult 04/12/201208/19/2017 Skin lesion 03/21/2011 06/20/2016 Cellulitis and abscess 11/22/2010 6 Non-healing surgical wound 09/19/201006/20 Abscess 09/08/2010 06/20/2016 Sciatica 05/04/2009 06/20/2016 documented as of this encounter (statuses as of 08/09/2022) [address]13-2015 History of Past illness Narrative* Problem Noted Date Resolved Date S/P aortic valve replacement 10/25/201401/2016 Pulmonary embolus, right 09/25/201305/2 018 Callus of foot 09/25/2013 07/20/2019 Tinea of nail 09/25/2013 07/20/2019 Encounter for monitoring Coumadin therapy 201307/20/2019 Overview: INR goal 2.5-3.5 Morbid obesity with BMI of 40.0-44.9, adult 04/1 12/201208/19/2017 Skin lesion 03/21/2011 06/20/2016 Cellulitis and abscess 11/22/2010 6 Non-healing surgical wound 09/19/201006/20 Abscess 09/08/2010 06/20/2016 Sciatica 05/04/2009 06/20/2016 documented as of this encounter (statuses as of 08/14/2022) [facility]2015 History of Past illness Narrative* Problem Noted Date Resolved Date S/P aortic valve replacement 10/25/201401/2016 Pulmonary embolus, right 09/25/201308/19/2 018 Callus of foot 09/25/2013 07/20/2019 Tinea of nail 09/25/2013 07/20/2019 Encounter for monitoring Coumadin therapy 201307/20/2019 Overview: INR goal 2.5-3.5 Morbid obesity with BMI of 40.0-44.9, adult 04/1 12/201208/19/2017 Skin lesion 03/21/2011 06/20/2016 Cellulitis and abscess 11/22/2010 6 Non-healing surgical wound 09/19/201006/20 Abscess 09/08/2010 06/20/2016 Sciatica 05/04/2009 06/20/2016 documented as of this encounter (statuses as of 08/16/2022) [facility]2015 History of Past illness Narrative* Problem Noted Date Resolved Date S/P aortic valve replacement 10/25/201401/2016 Pulmonary embolus, right 09/25/201305/2 018 Callus of foot 09/25/2013 07/20/2019 Tinea of nail 09/25/2013 07/20/2019 Encounter for monitoring Coumadin therapy 201307/20/2019 Overview: INR goal 2.5-3.5 Morbid obesity with BMI of 40.0-44.9, adult 04/12/201208/19/2017 Skin lesion 03/21/2011 06/20/2016 Cellulitis and abscess 11/22/2010 6 Non-healing surgical wound 09/19/201006/20 Abscess 09/08/2010 06/20/2016 Sciatica 05/04/2009 06/20/2016 documented as of this encounter (statuses as of 08/28/2022) [facility]2015 History of Past illness Narrative* Problem Noted Date Resolved Date S/P aortic valve replacement 10/25/201401/2016 Pulmonary embolus, right 09/25/2013 018 Callus of foot 09/25/2013 07/20/2019 Tinea of nail 09/25/2013 07/20/2019 Encounter for monitoring Coumadin therapy 201307/20/2019 Overview: INR goal 2.5-3.5 Morbid obesity with BMI of 40.0-44.9, adult 04/12/201208/19/2017 Skin lesion 03/21/2011 06/20/2016 Cellulitis and abscess 11/22/2010 6 Non-healing surgical wound 09/19/201006/20 Abscess 09/08/2010 06/20/2016 Sciatica 05/04/2009 06/20/2016 documented as of this encounter (statuses as of 09/07/2022) [facility]2015 History of Past illness Narrative* Problem Noted Date Resolved Date S/P aortic valve replacement 10/25/201401/2016 Pulmonary embolus, right 09/25/2013052 018 Callus of foot 09/25/2013 07/20/2019 Tinea of nail 09/25/2013 07/20/2019 Encounter for monitoring Coumadin therapy 201307/20/2019 Overview: INR goal 2.5-3.5 Morbid obesity with BMI of 40.0-44.9, adult 04/12/201208/19/2017 Skin lesion 03/21/2011 06/20/2016 Cellulitis and abscess 11/22/2010 6 Non-healing surgical wound 09/19/201006/20 Abscess 09/08/2010 06/20/2016 Sciatica 05/04/2009 06/20/2016 documented as of this encounter (statuses as of 09/09/2022) [facility]2015 History of Past illness Narrative* Problem Noted Date Resolved Date S/P aortic valve replacement 10/25/201401/2016 Pulmonary embolus, right 09/25/201305 018 Callus of foot 09/25/2013 07/20/2019 Tinea of nail 09/25/2013 07/20/2019 Encounter for monitoring Coumadin therapy 201307/20/2019 Overview: INR goal 2.5-3.5 Morbid obesity with BMI of 40.0-44.9, adult 04/12/201208/19/2017 Skin lesion 03/21/2011 06/20/2016 Cellulitis and abscess 11/22/2010 6 Non-healing surgical wound 09/19/201006/20 Abscess 09/08/2010 06/20/2016 Sciatica 05/04/2009 06/20/2016 documented as of this encounter (statuses as of 09/25/2022) [facility]2015 History of Past illness Narrative* Problem Noted Date Resolved Date S/P aortic valve replacement 10/25/201401/2016 Pulmonary embolus, right 09/25/2013052 018 Callus of foot 09/25/2013 07/20/2019 Tinea of nail 09/25/2013 07/20/2019 Encounter for monitoring Coumadin therapy 201307/20/2019 Overview: INR goal 2.5-3.5 Morbid obesity with BMI of 40.0-44.9, adult 04/12/201208/19/2017 Skin lesion 03/21/2011 06/20/2016 Cellulitis and abscess 11/22/2010 6 Non-healing surgical wound 09/19/201006/20 Abscess 09/08/2010 06/20/2016 Sciatica 05/04/2009 06/20/2016 documented as of this encounter (statuses as of 10/23/2022) [facility]04[facility]2015 History of Past illness Narrative* Problem Noted Date Resolved Date S/P aortic valve replacement 10/25/201401/2016 Pulmonary embolus, right 09/25/2013 018 Callus of foot 09/25/2013 07/20/2019 Tinea of nail 09/25/2013 07/20/2019 Encounter for monitoring Coumadin therapy 201307/20/2019 Overview: INR goal 2.5-3.5 Morbid obesity with BMI of 40.0-44.9, adult 04/12/201208/19/2017 Skin lesion 03/21/2011 06/20/2016 Cellulitis and abscess 11/22/2010 6 Non-healing surgical wound 09/19/201006/20 Abscess 09/08/2010 06/20/2016 Sciatica 05/04/2009 06/20/2016 documented as of this encounter (statuses as of 11/20/2022) [facility]2015 History of Past illness Narrative* Problem Noted Date Resolved Date S/P aortic valve replacement 10/25/201401/2016 Pulmonary embolus, right 09/25/2013 018 Callus of foot 09/25/2013 07/20/2019 Tinea of nail 09/25/2013 07/20/2019 Encounter for monitoring Coumadin therapy 201307/20/2019 Overview: INR goal 2.5-3.5 Morbid obesity with BMI of 40.0-44.9, adult 04/12/201208/19/2017 Skin lesion 03/21/2011 06/20/2016 Cellulitis and abscess 11/22/2010 6 Non-healing surgical wound 09/19/201006/20 Abscess 09/08/2010 06/20/2016 Sciatica 05/04/2009 06/20/2016 documented as of this encounter (statuses as of 11/20/2022) [facility]2015 History of Past illness Narrative* Problem Noted Date Resolved Date S/P aortic valve replacement 10/25/201401/2016 Pulmonary embolus, right 09/25/2013 018 Callus of foot 09/25/2013 07/20/2019 Tinea of nail 09/25/2013 07/20/2019 Encounter for monitoring Coumadin therapy 201307/20/2019 Overview: INR goal 2.5-3.5 Morbid obesity with BMI of 40.0-44.9, adult 04/12/201208/19/2017 Skin lesion 03/21/2011 06/20/2016 Cellulitis and abscess 11/22/2010 6 Non-healing surgical wound 09/19/201006/20 Abscess 09/08/2010 06/20/2016 Sciatica 05/04/2009 06/20/2016 documented as of this encounter (statuses as of 12/13/2022) [facility]2015 History of Past illness Narrative* Problem Noted Date Resolved Date S/P aortic valve replacement 10/25/201401/2016 Pulmonary embolus, right 09/25/2013 018 Callus of foot 09/25/2013 07/20/2019 Tinea of nail 09/25/2013 07/20/2019 Encounter for monitoring Coumadin therapy 201307/20/2019 Overview: INR goal 2.5-3.5 Morbid obesity with BMI of 40.0-44.9, adult 04/12/201208/19/2017 Skin lesion 03/21/2011 06/20/2016 Cellulitis and abscess 11/22/2010 6 Non-healing surgical wound 09/19/201006/20 Abscess 09/08/2010 06/20/2016 Sciatica 05/04/2009 06/20/2016 documented as of this encounter (statuses as of 12/14/2022) [facility] History of Past illness Narrative* Problem Noted Date Resolved Date S/P aortic valve replacement 10/25/201401/2016 Pulmonary embolus, right 09/25/201305/2 018 Callus of foot 09/25/2013 07/20/2019 Tinea of nail 09/25/2013 07/20/2019 Encounter for monitoring Coumadin therapy 201307/20/2019 Overview: INR goal 2.5-3.5 Morbid obesity with BMI of 40.0-44.9, adult 04/12/201208/19/2017 Skin lesion 03/21/2011 06/20/2016 Cellulitis and abscess 11/22/2010 6 Non-healing surgical wound 09/19/201006/20 Abscess 09/08/2010 06/20/2016 Sciatica 05/04/2009 06/20/2016 documented as of this encounter (statuses as of 12/18/2022) [facility]2015 History of Past illness Narrative* Problem Noted Date Resolved Date S/P aortic valve replacement 10/25/201401/2016 Pulmonary embolus, right 09/25/2013 018 Callus of foot 09/25/2013 07/20/2019 Tinea of nail 09/25/2013 07/20/2019 Encounter for monitoring Coumadin therapy 201307/20/2019 Overview: INR goal 2.5-3.5 Morbid obesity with BMI of 40.0-44.9, adult 04/12/201208/19/2017 Skin lesion 03/21/2011 06/20/2016 Cellulitis and abscess 11/22/2010 6 Non-healing surgical wound 09/19/201006/20 Abscess 09/08/2010 06/20/2016 Sciatica 05/04/2009 06/20/2016 documented as of this encounter (statuses as of 12/25/2022) [facility] History of Past illness Narrative* Problem Noted Date Resolved Date S/P aortic valve replacement 10/25/201401/2016 Pulmonary embolus, right 09/25/201305/2 018 Callus of foot 09/25/2013 07/20/2019 Tinea of nail 09/25/2013 07/20/2019 Encounter for monitoring Coumadin therapy 201307/20/2019 Overview: INR goal 2.5-3.5 Morbid obesity with BMI of 40.0-44.9, adult 04/12/201208/19/2017 Skin lesion 03/21/2011 06/20/2016 Cellulitis and abscess 11/22/2010 6 Non-healing surgical wound 09/19/201006/20 Abscess 09/08/2010 06/20/2016 Sciatica 05/04/2009 06/20/2016 documented as of this encounter (statuses as of 12/27/2022) [facility] History of Past illness Narrative* Problem Noted Date Resolved Date S/P aortic valve replacement 10/25/201401/2016 Pulmonary embolus, right 09/25/201305 018 Callus of foot 09/25/2013 07/20/2019 Tinea of nail 09/25/2013 07/20/2019 Encounter for monitoring Coumadin therapy 201307/20/2019 Overview: INR goal 2.5-3.5 Morbid obesity with BMI of 40.0-44.9, adult 10/1308/19/2017 Skin lesion 03/21/2011 06/20/2016 Cellulitis and abscess 11/22/2010 6 Non-healing surgical wound 09/19/201006/20 Abscess 09/08/2010 06/20/2016 Sciatica 05/04/2009 06/20/2016 documented as of this encounter (statuses as of 12/31/2022) [facility] History of Past illness Narrative* Problem Noted Date Resolved Date S/P aortic valve replacement 10/25/201401/2016 Pulmonary embolus, right 09/25/201305 018 Callus of foot 09/25/2013 07/20/2019 Tinea of nail 09/25/2013 07/20/2019 Encounter for monitoring Coumadin therapy 201307/20/2019 Overview: INR goal 2.5-3.5 Morbid obesity with BMI of 40.0-44.9, adult 04/12/201208/19/2017 Skin lesion 03/21/2011 06/20/2016 Cellulitis and abscess 11/22/2010 6 Non-healing surgical wound 09/19/201006/20 Abscess 09/08/2010 06/20/2016 Sciatica 05/04/2009 06/20/2016 documented as of this encounter (statuses as of 01/03/2023) [facility] History of Past illness Narrative* Problem Noted Date Resolved Date S/P aortic valve replacement 10/25/201401/2016 Pulmonary embolus, right 09/25/201305 018 Callus of foot 09/25/2013 07/20/2019 Tinea of nail 09/25/2013 07/20/2019 Encounter for monitoring Coumadin therapy 201307/20/2019 Overview: INR goal 2.5-3.5 Morbid obesity with BMI of 40.0-44.9, adult 04/12/201208/19/2017 Skin lesion 03/21/2011 06/20/2016 Cellulitis and abscess 11/22/2010 6 Non-healing surgical wound 09/19/201006/20 Abscess 09/08/2010 06/20/2016 Sciatica 05/04/2009 06/20/2016 documented as of this encounter (statuses as of 01/04/2023) [facility]2015 History of Past illness Narrative* Problem Noted Date Resolved Date S/P aortic valve replacement 10/25/201401/2016 Pulmonary embolus, right 09/25/2013 018 Callus of foot 09/25/2013 07/20/2019 Tinea of nail 09/25/2013 07/20/2019 Encounter for monitoring Coumadin therapy 201307/20/2019 Overview: INR goal 2.5-3.5 Morbid obesity with BMI of 40.0-44.9, adult 04/12/201208/19/2017 Skin lesion 03/21/2011 06/20/2016 Cellulitis and abscess 11/22/2010 6 Non-healing surgical wound 09/19/201006/20 Abscess 09/08/2010 06/20/2016 Sciatica 05/04/2009 06/20/2016 documented as of this encounter (statuses as of 01/04/2023) [facility] History of Past illness Narrative* Problem Noted Date Diagnosed Date Resolved Date S/P aortic valve replacement 10/25/2014 06/20/2016 Pulmonary embolus, right 09/25/201311/2017 Callus of foot 09/25/2013 07/20/2019 Tinea of nail 09/25/2013 07/20/2019 Encounter for monitoring Coumadin therapy 09/23/2013 07/20/2019 Overview: INR goal 2.5-3.5 Morbid obesity with BMI of 40.0-44.9, adult 10/28/2012 08/19/2017 Skin lesion 03/21/2011 06/20/2016 Cellulitis and abscess 11/22/201006/20 Non-healing surgical wound 09/19/2010 1 08/21/2015 Abscess 09/08/2010 06/20/2016 Sciatica 05/04/2009 06/20/2016 documented as of this encounter (statuses as of 01/25/2023) [facility] History of Past illness Narrative* Problem Noted Date Diagnosed Date Resolved Date S/P aortic valve replacement 10/25/2014 06/20/2016 Pulmonary embolus, right 09/25/201311/2017 Callus of foot 09/25/2013 07/20/2019 Tinea of nail 09/25/2013 07/20/2019 Encounter for monitoring Coumadin therapy 09/23/2013 07/20/2019 Overview: INR goal 2.5-3.5 Morbid obesity with BMI of 40.0-44.9, adult 10/28/2012 08/19/2017 Skin lesion 03/21/2011 06/20/2016 Cellulitis and abscess 11/22/201006/20 Non-healing surgical wound 09/19/2010 1 08/21/2015 Abscess 09/08/2010 06/20/2016 Sciatica 05/04/2009 06/20/2016 documented as of this encounter (statuses as of 01/29/2023) [facility] note* Diagnosis Type 2 diabetes mellitus with diabetic neuropathy, with long-term current use of insulin (HCC) Status post aortic valve repair Other postprocedural status Chronic anticoagulation Long-term (current) use of anticoagulants [facility] Diagnosis Colon cancer screening Special screening for malignant neoplasms, colon [facility] Colon cancer screening- Primary Special screening for malignant neoplasms, colon [facility] Diagnosis Diverticulosis- Primary Diverticulosis of colon (without mention of hemorrhage) Cecal polyp [facility] Diagnosis COVID-19- Primary [facility] Diagnosis COVID-19- Primary [facility] Diagnosis Hyperlipidemia with target LDL less than 100- Primary Other and unspecified hyperlipidemia Primary hypertension Unspecified essential hypertension Thoracic aortic aneurysm without rupture (HCC) Thoracic aneurysm without mention of rupture 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 angina pectoris Syncope, unspecified syncope type Obesity, Class II, BMI 35-39.9 Obesity, unspecified [facility] Diagnosis Syncope and collapse- Primary Altered mental status, unspecified altered mental status type Urinary incontinence, unspecified type Benign prostatic hyperplasia with nocturia Nocturia Vitamin D deficiency, unspecified Wound of left lower extremity, initial encounter Encounter for screening for malignant neoplasm of prostate Special screening for malignant neoplasm of prostate [facility] Diagnosis Abnormality of gait due to impairment of balance- Primary Altered mental status, unspecified altered mental status type [facility]* Diagnosis Chronic anticoagulation Long-term (current) use of anticoagulants Thoracic aortic aneurysm without rupture (HCC) Thoracic aneurysm without mention of rupture Status post aortic valve repair Other postprocedural status [facility]* Diagnosis Type 2 diabetes mellitus with diabetic neuropathy, with long-term current use of insulin (HCC)- Primary [facility]* Diagnosis Abnormality of gait due to impairment of balance- Primary [facility] Diagnosis Abnormality of gait due to impairment of balance- Primary [facility] Diagnosis Vitamin D deficiency Unspecified vitamin D deficiency [facility] Diagnosis Abnormality of gait due to impairment of balance- Primary [facility] Diagnosis Vitamin D deficiency Unspecified vitamin D deficiency [facility]* Diagnosis Type 2 diabetes mellitus with stage 3 chronic kidney disease, with long-term current use of insulin (HCC) [facility] Diagnosis Abnormality of gait due to impairment of balance- Primary [facility]* Diagnosis Type 2 diabetes mellitus with diabetic neuropathy, with long-term current use of insulin ([facility]) [facility] Diagnosis Abnormality of gait due to impairment of balance- Primary [facility] Diagnosis Abnormality of gait due to impairment of balance- Primary [facility] Diagnosis Abnormality of gait due to impairment of balance- Primary [facility]* Diagnosis Status post aortic valve repair Other postprocedural status Chronic anticoagulation Long-term (current) use of anticoagulants [facility] Diagnosis Generalized weakness- Primary Other malaise and fatigue Supratherapeutic INR Abnormal coagulation profile ANTHONY (acute kidney injury) ([facility]) Acute kidney failure, unspecified [facility] Diagnosis Abnormality of gait due to impairment of balance- Primary [facility] Diagnosis Abnormality of gait due to impairment of balance- Primary [facility]* Diagnosis Urinary incontinence, unspecified type [facility] Diagnosis Abnormality of gait due to impairment of balance- Primary [facility] Diagnosis Onychomycosis- Primary Dermatophytosis of nail Pain in toe of left foot Pain in limb Amputated toe of right foot (HCC) Diabetic polyneuropathy associated with type 2 diabetes mellitus ([facility]) [facility] Diagnosis Generalized weakness- Primary Other malaise and fatigue Encounter for immunization Need for other specified prophylactic vaccination against single bacterial disease Mild depression Depressive disorder, not elsewhere classified [facility] Diagnosis Generalized anxiety disorder- Primary Polyneuropathy Unspecified hereditary and idiopathic peripheral neuropathy [facility] Diagnosis Urinary incontinence, unspecified type [facility] Diagnosis Dizziness- Primary Dizziness and giddiness Chronic frontal sinusitis [facility] Diagnosis Type 2 diabetes mellitus with diabetic neuropathy, with long-term current use of insulin (HCC)- Primary Diabetic polyneuropathy associated with type 2 diabetes mellitus (HCC) NSTEMI (non-ST elevated myocardial infarction) ([facility]) Acute myocardial infarction, subendocardial infarction, episode of care unspecified Essential hypertension, benign Hyperlipidemia with target LDL less than 100 Other and unspecified hyperlipidemia Status post aortic valve repair Other postprocedural status Chronic anticoagulation Long-term (current) use of anticoagulants Urinary incontinence, unspecified type Benign prostatic hyperplasia with weak urinary stream 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) Lower limb amputation, great toe Type 2 diabetes mellitus with stage 3a chronic kidney disease, with long-term current use of insulin ([facility]) 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, macular edema presence unspecified ([facility]) [facility] Diagnosis Driving safety issue- Primary Other specified personal history presenting hazards to health [facility] Diagnosis Onychomycosis- Primary Dermatophytosis of nail Pain in toe of left foot Pain in limb Amputated toe of right foot ([facility]) Diabetic polyneuropathy associated with type 2 diabetes mellitus ([facility]) [facility] Diagnosis Spinal stenosis, lumbar region, without neurogenic claudication- Primary Primary osteoarthritis of both knees Primary localized osteoarthrosis, lower leg [facility] Diagnosis Spinal stenosis, lumbar region, without neurogenic claudication- Primary Primary osteoarthritis of both knees Primary localized osteoarthrosis, lower leg [facility] Diagnosis Spinal stenosis, lumbar region, without neurogenic claudication- Primary Primary osteoarthritis of both knees Primary localized osteoarthrosis, lower leg [facility] Diagnosis Spinal stenosis, lumbar region, without neurogenic claudication- Primary Primary osteoarthritis of both knees Primary localized osteoarthrosis, lower leg [facility] Diagnosis Spinal stenosis, lumbar region, without neurogenic claudication- Primary Primary osteoarthritis of both knees Primary localized osteoarthrosis, lower leg [facility] Diagnosis Spinal stenosis, lumbar region, without neurogenic claudication- Primary Primary osteoarthritis of both knees Primary localized osteoarthrosis, lower leg [facility] Narrative No data available for this section [facility] Discharge instructions No data available for this section [facility] Progress note No data available for this section [facility] Reason for referral (narrative)* Outpatient Procedure (Routine) - Closed Specialty Diagnoses / Procedures Referred By Contac t Referred To [facility] Diagnoses Colon cancer screening Procedures COLONOSCOPY SCREENING COLONOSCOPY FLX DX W/COLLJ SPEC WHEN PFMarcella Cho PA-C [address] [place] [address] [facility] [place] [address] [phone] Referral ID Status Reason Start Date Expiration Date V isits Requested Visits Authorized [id number] Closed Auto-Generate d Referral 08/16/2021 08/16/2022 1 1 [facility] for referral (narrative)* Outpatient Procedure (Routine) - Closed Specialty Diagnoses / Procedures Referred By Contac t Referred To Contact [facility] Diagnoses Colon cancer screening Procedures COLONOSCOPY SCREENING COLONOSCOPY FLX DX W/COLLJ SPEC WHEN Marcella Alatorre PA-C [address] [place] [address] [facility] [place] [address] [place] [id number] Referral ID Status Reason Start Date Expiration Date V isits Requested Visits Authorized [id number] Closed Auto-Generate d Referral 08/16/2021 08/16/2022 1 1 [facility] for visit Narrative* Outpatient Procedure (Routine) - Closed Specialty Diagnoses / Procedures Referred By Contac t Referred To [facility] Diagnoses Colon cancer screening Procedures COLONOSCOPY SCREENING COLONOSCOPY FLX DX W/COLLJ SPEC WHEN PFMarcella Cho PA-C [address] [place] [address] [facility] [place] [address] [place] [id number] Referral ID Status Reason Start Date Expiration Date V isits Requested Visits Authorized [id number] Closed Auto-Generate d Referral 08/16/2021 08/16/2022 1 1 [facility] Outpatient Procedure (Routine) - Closed Specialty Diagnoses / Procedures Referred By Linn carrillo Ref[facility] Diagnoses Chronic anticoagulation Thoracic aortic aneurysm without rupture (HCC) Status post aortic valve repair Procedures ECHO TTE W/DOPPLER, COMPLETE Justina Hadley, CROZE CUTTER.HAT CUTTER [address] [place] [address] [facility] [address] [address] Referral ID Status Reason Start Date Expiration Date V isits Requested Visits Authorized [id number] Closed Auto-Generate d Referral 07/03/2021 07/03/2022 1 1 [facility] Advance Directives No Advanced Directives Records FoundDocuments on File Type Date Recorded 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 Advance Directive(s) 09/12/2021 7:14 AM Documents on File Type Date Recorded 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 Advance Directive(s) 09/12/2021 7:14 AM Medications Administered Section Inactive Administered Medications - up to 3 most recent administrations Medication Order MAR Action Action Date Dose Rate Site fentaNYL 50 mcg/mL 25-100 mcg injection (SUBLIMAZE) 25-100 mcg, INTRAVENOUS, DIRECTED, Starting on Sat10/10/21 at 0900, Until Sat10/10/21 at 1259, DOSING DIRECTED BY PHYSICIAN FOR PROCEDURAL SEDATION ONLY, Intraprocedure Given 10/10/2021 9:07 AM EDT 25 mcg Reason for Referral Specialty Diagnoses / Procedures Referred By Linn carrillo Referred To Contact [facility] Diagnoses Driving safety issue Procedures CONSULT TO RAW SCALES OPERATOR OCCUPATIONAL THERAPY EVAL HIGH COMPLEX 60 MINS Tamie Kaur MD [address] [place] [address] [facility] [place] [address] [place] [id number] Referral ID Status Reason Start Date Expiration Date Visits Requested Visits Authorized [id number] Authorized PCP Requested Referral Auto-Generate d Referral 09/07/2022 09/07/2023 99 99 Specialty Diagnoses / Procedures Referred By Contac t Referred To Contact [facility] Diagnoses Polyneuropathy Procedures CONSULT TO PHYSICAL THERAPY PHYSICAL THERAPY EVALUATION HIGH COMPLEX 45 MINS Tamie Kaur MD [address] [place] [address] [facility] [address] [address] Referral ID Status Reason Start Date Expiration Date Visits Requested Visits Authorized [id number] Authorized PCP Requested Referral Auto-Generate d Referral 04/17/2022 04/17/2023 99 99 Specialty Diagnoses / Procedures Referred By Contac t Referred To Contact Psychology Diagnoses Generalized anxiety disorder Procedures CONSULT TO PSYCHOLOGY OFFICE/OUTPATIENT [facility] 60-74 MINUTES Tamie Kaur MD [address] [phone] Referral ID Status Reason Start Date Expiration Date Visits Requested Visits Authorized [id number] Pending Review PCP Requested Referral 04/17/2022 04/17/2023 1 1 Specialty Diagnoses / Procedures Referred By Contac t Referred To Contact Podiatry Diagnoses Type 2 diabetes mellitus with diabetic neuropathy, with long-term current use of insulin (HCC) Procedures CONSULT TO PODIATRY OFFICE/OUTPATIENT [facility] 60-74 MINUTES PodlogRoselia hernandez APRN.HAT CUTTER [address] [place] [address] Referral ID Status Reason Start Date Expiration Date Visits Requested Visits Authorized [id number] Authorized PCP Requested Referral 01/12/2022 01/11/2023 1 1 Specialty Diagnoses / Procedures Referred By Contac t Referred To Contact [facility] Diagnoses Altered mental status, unspecified altered mental status type Procedures CONSULT TO SPEECH THERAPY OFFICE/OUTPATIENT [facility] 60-74 MINUTES Tamie Kaur MD [address] [place] [id number] [facility] [address] [address] Referral ID Status Reason Start Date Expiration Date Visits Requested Visits Authorized [id number] Authorized Auto-Generat ed Referral 01/05/2022 01/05/2023 99 99 Specialty Diagnoses / Procedures Referred By Contac t Referred To Contact [facility] Diagnoses Abnormality of gait due to impairment of balance Procedures CONSULT TO PHYSICAL THERAPY PHYSICAL THERAPY EVALUATION HIGH COMPLEX 45 MINS Tamie Kaur MD [address] [place] [address] [facility] [place] [address] Referral ID Status Reason Start Date Expiration Date Visits Requested Visits Authorized [id number] Authorized PCP Requested Referral Auto-Generate d Referral 01/05/2022 01/05/2023 99 99 Specialty Diagnoses / Procedures Referred By Contac t Referred To Contact [facility] Diagnoses Altered mental status, unspecified altered mental status type Procedures EPIL EEG ROUTINE ELECTROENCEPHALOGRAM REC COMA/SLEEP ONLY Tamie Kaur MD [address] [place] [address] [place] [address] Referral ID Status Reason Start Date Expiration Date Visits Requested Visits Authorized [id number] Authorized Auto-Generat ed Referral 01/05/2022 01/05/2023 1 1 Specialty Diagnoses / Procedures Referred By Contac t Referred To Contact Neurology Diagnoses Altered mental status, unspecified altered mental status type Procedures CONSULT TO NEUROLOGY OFFICE/OUTPATIENT [facility] MDM 60-74 MINUTES Abdulaziz Caldera MD [address] [place] [address] Referral ID Status Reason Start Date Expiration Date Visits Requested Visits Authorized [id number] Authorized PCP Requested Referral 01/01/2022 01/01/2023 1 1 Summary Purpose Family History No Family History Records FoundNo Family History Records FoundNo Family History Records FoundNo Family History Records Found Additional Source Comments Source Comments (unrecognize d section and content) In the event this informatio n is protected by the Federal Confidentiality of Alcohol and Drug Abuse Patient Records regulations: The Federal rules restrict any use of the information to criminally investigate or prosecute any alcohol or drug abuse patient.[facility] the event this information is protected by the Federal Confidentiality of Alcohol and Drug Abuse Patient Records regulations: The Federal rules restrict any use of the information to criminally investigate or prosecute any alcohol or drug abuse patient.[facility] Center[facility] the event this information is protected by the Federal Confidentiality of Alcohol and Drug Abuse Patient Records regulations: The Federal rules restrict any use of the information to criminally investigate or prosecute any alcohol or drug abuse patient.[facility] CenterIn the event this information is protected by the Federal Confidentiality of Alcohol and Drug Abuse Patient Records regulations: The Federal rules restrict any use of the information to criminally investigate or prosecute any alcohol or drug abuse patient.[facility] CenterIn the event this information is protected by the Federal Confidentiality of Alcohol and Drug Abuse Patient Records regulations: The Federal rules restrict any use of the information to criminally investigate or prosecute any alcohol or drug abuse patient.[facility] CenterIn the event this information is protected by the Federal Confidentiality of Alcohol and Drug Abuse Patient Records regulations: The Federal rules restrict any use of the information to criminally investigate or prosecute any alcohol or drug abuse patient.[facility] CenterIn the event this information is protected by the Federal Confidentiality of Alcohol and Drug Abuse Patient Records regulations: The Federal rules restrict any use of the information to criminally investigate or prosecute any alcohol or drug abuse patient.[facility] CenterIn the event this information is protected by the Federal Confidentiality of Alcohol and Drug Abuse Patient Records regulations: The Federal rules restrict any use of the information to criminally investigate or prosecute any alcohol or drug abuse patient.[facility] CenterIn the event this information is protected by the Federal Confidentiality of Alcohol and Drug Abuse Patient Records regulations: The Federal rules restrict any use of the information to criminally investigate or prosecute any alcohol or drug abuse patient.[facility] CenterIn the event this information is protected by the Federal Confidentiality of Alcohol and Drug Abuse Patient Records regulations: The Federal rules restrict any use of the information to criminally investigate or prosecute any alcohol or drug abuse patient.[facility] CenterIn the event this information is protected by the Federal Confidentiality of Alcohol and Drug Abuse Patient Records regulations: The Federal rules restrict any use of the information to criminally investigate or prosecute any alcohol or drug abuse patient.[facility] CenterIn the event this information is protected by the Federal Confidentiality of Alcohol and Drug Abuse Patient Records regulations: The Federal rules restrict any use of the information to criminally investigate or prosecute any alcohol or drug abuse patient.[facility] CenterIn the event this information is protected by the Federal Confidentiality of Alcohol and Drug Abuse Patient Records regulations: The Federal rules restrict any use of the information to criminally investigate or prosecute any alcohol or drug abuse patient.[facility] CenterIn the event this information is protected by the Federal Confidentiality of Alcohol and Drug Abuse Patient Records regulations: The Federal rules restrict any use of the information to criminally investigate or prosecute any alcohol or drug abuse patient.[facility] CenterIn the event this information is protected by the Federal Confidentiality of Alcohol and Drug Abuse Patient Records regulations: The Federal rules restrict any use of the information to criminally investigate or prosecute any alcohol or drug abuse patient.[facility] CenterIn the event this information is protected by the Federal Confidentiality of Alcohol and Drug Abuse Patient Records regulations: The Federal rules restrict any use of the information to criminally investigate or prosecute any alcohol or drug abuse patient.[facility] CenterIn the event this information is protected by the Federal Confidentiality of Alcohol and Drug Abuse Patient Records regulations: The Federal rules restrict any use of the information to criminally investigate or prosecute any alcohol or drug abuse patient.[facility] CenterIn the event this information is protected by the Federal Confidentiality of Alcohol and Drug Abuse Patient Records regulations: The Federal rules restrict any use of the information to criminally investigate or prosecute any alcohol or drug abuse patient.[facility] CenterIn the event this information is protected by the Federal Confidentiality of Alcohol and Drug Abuse Patient Records regulations: The Federal rules restrict any use of the information to criminally investigate or prosecute any alcohol or drug abuse patient.[facility] CenterIn the event this information is protected by the Federal Confidentiality of Alcohol and Drug Abuse Patient Records regulations: The Federal rules restrict any use of the information to criminally investigate or prosecute any alcohol or drug abuse patient.[facility] CenterIn the event this information is protected by the Federal Confidentiality of Alcohol and Drug Abuse Patient Records regulations: The Federal rules restrict any use of the information to criminally investigate or prosecute any alcohol or drug abuse patient.[facility] CenterIn the event this information is protected by the Federal Confidentiality of Alcohol and Drug Abuse Patient Records regulations: The Federal rules restrict any use of the information to criminally investigate or prosecute any alcohol or drug abuse patient.[facility] CenterIn the event this information is protected by the Federal Confidentiality of Alcohol and Drug Abuse Patient Records regulations: The Federal rules restrict any use of the information to criminally investigate or prosecute any alcohol or drug abuse patient.[facility] CenterIn the event this information is protected by the Federal Confidentiality of Alcohol and Drug Abuse Patient Records regulations: The Federal rules restrict any use of the information to criminally investigate or prosecute any alcohol or drug abuse patient.[facility] CenterIn the event this information is protected by the Federal Confidentiality of Alcohol and Drug Abuse Patient Records regulations: The Federal rules restrict any use of the information to criminally investigate or prosecute any alcohol or drug abuse patient.[facility] CenterIn the event this information is protected by the Federal Confidentiality of Alcohol and Drug Abuse Patient Records regulations: The Federal rules restrict any use of the information to criminally investigate or prosecute any alcohol or drug abuse patient.[facility] CenterIn the event this information is protected by the Federal Confidentiality of Alcohol and Drug Abuse Patient Records regulations: The Federal rules restrict any use of the information to criminally investigate or prosecute any alcohol or drug abuse patient.[facility] CenterIn the event this information is protected by the Federal Confidentiality of Alcohol and Drug Abuse Patient Records regulations: The Federal rules restrict any use of the information to criminally investigate or prosecute any alcohol or drug abuse patient.[facility] CenterIn the event this information is protected by the Federal Confidentiality of Alcohol and Drug Abuse Patient Records regulations: The Federal rules restrict any use of the information to criminally investigate or prosecute any alcohol or drug abuse patient.[facility] CenterIn the event this information is protected by the Federal Confidentiality of Alcohol and Drug Abuse Patient Records regulations: The Federal rules restrict any use of the information to criminally investigate or prosecute any alcohol or drug abuse patient.[facility] CenterIn the event this information is protected by the Federal Confidentiality of Alcohol and Drug Abuse Patient Records regulations: The Federal rules restrict any use of the information to criminally investigate or prosecute any alcohol or drug abuse patient.[facility] CenterIn the event this information is protected by the Federal Confidentiality of Alcohol and Drug Abuse Patient Records regulations: The Federal rules restrict any use of the information to criminally investigate or prosecute any alcohol or drug abuse patient.[facility] CenterIn the event this information is protected by the Federal Confidentiality of Alcohol and Drug Abuse Patient Records regulations: The Federal rules restrict any use of the information to criminally investigate or prosecute any alcohol or drug abuse patient.[facility] CenterIn the event this information is protected by the Federal Confidentiality of Alcohol and Drug Abuse Patient Records regulations: The Federal rules restrict any use of the information to criminally investigate or prosecute any alcohol or drug abuse patient.[facility] CenterIn the event this information is protected by the Federal Confidentiality of Alcohol and Drug Abuse Patient Records regulations: The Federal rules restrict any use of the information to criminally investigate or prosecute any alcohol or drug abuse patient.[facility] CenterIn the event this information is protected by the Federal Confidentiality of Alcohol and Drug Abuse Patient Records regulations: The Federal rules restrict any use of the information to criminally investigate or prosecute any alcohol or drug abuse patient.[facility] CenterIn the event this information is protected by the Federal Confidentiality of Alcohol and Drug Abuse Patient Records regulations: The Federal rules restrict any use of the information to criminally investigate or prosecute any alcohol or drug abuse patient.[facility] CenterIn the event this information is protected by the Federal Confidentiality of Alcohol and Drug Abuse Patient Records regulations: The Federal rules restrict any use of the information to criminally investigate or prosecute any alcohol or drug abuse patient.[facility] CenterIn the event this information is protected by the Federal Confidentiality of Alcohol and Drug Abuse Patient Records regulations: The Federal rules restrict any use of the information to criminally investigate or prosecute any alcohol or drug abuse patient.[facility] CenterIn the event this information is protected by the Federal Confidentiality of Alcohol and Drug Abuse Patient Records regulations: The Federal rules restrict any use of the information to criminally investigate or prosecute any alcohol or drug abuse patient.[facility] CenterIn the event this information is protected by the Federal Confidentiality of Alcohol and Drug Abuse Patient Records regulations: The Federal rules restrict any use of the information to criminally investigate or prosecute any alcohol or drug abuse patient.[facility] CenterIn the event this information is protected by the Federal Confidentiality of Alcohol and Drug Abuse Patient Records regulations: The Federal rules restrict any use of the information to criminally investigate or prosecute any alcohol or drug abuse patient.[facility] CenterIn the event this information is protected by the Federal Confidentiality of Alcohol and Drug Abuse Patient Records regulations: The Federal rules restrict any use of the information to criminally investigate or prosecute any alcohol or drug abuse patient.[facility] CenterIn the event this information is protected by the Federal Confidentiality of Alcohol and Drug Abuse Patient Records regulations: The Federal rules restrict any use of the information to criminally investigate or prosecute any alcohol or drug abuse patient.[facility] CenterIn the event this information is protected by the Federal Confidentiality of Alcohol and Drug Abuse Patient Records regulations: The Federal rules restrict any use of the information to criminally investigate or prosecute any alcohol or drug abuse patient.[facility] CenterIn the event this information is protected by the Federal Confidentiality of Alcohol and Drug Abuse Patient Records regulations: The Federal rules restrict any use of the information to criminally investigate or prosecute any alcohol or drug abuse patient.[facility] CenterIn the event this information is protected by the Federal Confidentiality of Alcohol and Drug Abuse Patient Records regulations: The Federal rules restrict any use of the information to criminally investigate or prosecute any alcohol or drug abuse patient.[facility] CenterIn the event this information is protected by the Federal Confidentiality of Alcohol and Drug Abuse Patient Records regulations: The Federal rules restrict any use of the information to criminally investigate or prosecute any alcohol or drug abuse patient.[facility] CenterIn the event this information is protected by the Federal Confidentiality of Alcohol and Drug Abuse Patient Records regulations: The Federal rules restrict any use of the information to criminally investigate or prosecute any alcohol or drug abuse patient.[facility] CenterIn the event this information is protected by the Federal Confidentiality of Alcohol and Drug Abuse Patient Records regulations: The Federal rules restrict any use of the information to criminally investigate or prosecute any alcohol or drug abuse patient.[facility] CenterIn the event this information is protected by the Federal Confidentiality of Alcohol and Drug Abuse Patient Records regulations: The Federal rules restrict any use of the information to criminally investigate or prosecute any alcohol or drug abuse patient.[facility] CenterIn the event this information is protected by the Federal Confidentiality of Alcohol and Drug Abuse Patient Records regulations: The Federal rules restrict any use of the information to criminally investigate or prosecute any alcohol or drug abuse patient.[facility] CenterIn the event this information is protected by the Federal Confidentiality of Alcohol and Drug Abuse Patient Records regulations: The Federal rules restrict any use of the information to criminally investigate or prosecute any alcohol or drug abuse patient.[facility] CenterIn the event this information is protected by the Federal Confidentiality of Alcohol and Drug Abuse Patient Records regulations: The Federal rules restrict any use of the information to criminally investigate or prosecute any alcohol or drug abuse patient.[facility] CenterIn the event this information is protected by the Federal Confidentiality of Alcohol and Drug Abuse Patient Records regulations: The Federal rules restrict any use of the information to criminally investigate or prosecute any alcohol or drug abuse patient.[facility] CenterIn the event this information is protected by the Federal Confidentiality of Alcohol and Drug Abuse Patient Records regulations: The Federal rules restrict any use of the information to criminally investigate or prosecute any alcohol or drug abuse patient.[facility] CenterIn the event this information is protected by the Federal Confidentiality of Alcohol and Drug Abuse Patient Records regulations: The Federal rules restrict any use of the information to criminally investigate or prosecute any alcohol or drug abuse patient.[facility] CenterIn the event this information is protected by the Federal Confidentiality of Alcohol and Drug Abuse Patient Records regulations: The Federal rules restrict any use of the information to criminally investigate or prosecute any alcohol or drug abuse patient.[facility] CenterIn the event this information is protected by the Federal Confidentiality of Alcohol and Drug Abuse Patient Records regulations: The Federal rules restrict any use of the information to criminally investigate or prosecute any alcohol or drug abuse patient.[facility] CenterIn the event this information is protected by the Federal Confidentiality of Alcohol and Drug Abuse Patient Records regulations: The Federal rules restrict any use of the information to criminally investigate or prosecute any alcohol or drug abuse patient.[facility] CenterIn the event this information is protected by the Federal Confidentiality of Alcohol and Drug Abuse Patient Records regulations: The Federal rules restrict any use of the information to criminally investigate or prosecute any alcohol or drug abuse patient.[facility] CenterIn the event this information is protected by the Federal Confidentiality of Alcohol and Drug Abuse Patient Records regulations: The Federal rules restrict any use of the information to criminally investigate or prosecute any alcohol or drug abuse patient.[facility] CenterIn the event this information is protected by the Federal Confidentiality of Alcohol and Drug Abuse Patient Records regulations: The Federal rules restrict any use of the information to criminally investigate or prosecute any alcohol or drug abuse patient.[facility] CenterIn the event this information is protected by the Federal Confidentiality of Alcohol and Drug Abuse Patient Records regulations: The Federal rules restrict any use of the information to criminally investigate or prosecute any alcohol or drug abuse patient.[facility] CenterIn the event this information is protected by the Federal Confidentiality of Alcohol and Drug Abuse Patient Records regulations: The Federal rules restrict any use of the information to criminally investigate or prosecute any alcohol or drug abuse patient.[facility] CenterIn the event this information is protected by the Federal Confidentiality of Alcohol and Drug Abuse Patient Records regulations: The Federal rules restrict any use of the information to criminally investigate or prosecute any alcohol or drug abuse patient.[facility] CenterIn the event this information is protected by the Federal Confidentiality of Alcohol and Drug Abuse Patient Records regulations: The Federal rules restrict any use of the information to criminally investigate or prosecute any alcohol or drug abuse patient.[facility] CenterIn the event this information is protected by the Federal Confidentiality of Alcohol and Drug Abuse Patient Records regulations: The Federal rules restrict any use of the information to criminally investigate or prosecute any alcohol or drug abuse patient.[facility] CenterIn the event this information is protected by the Federal Confidentiality of Alcohol and Drug Abuse Patient Records regulations: The Federal rules restrict any use of the information to criminally investigate or prosecute any alcohol or drug abuse patient.[facility] CenterIn the event this information is protected by the Federal Confidentiality of Alcohol and Drug Abuse Patient Records regulations: The Federal rules restrict any use of the information to criminally investigate or prosecute any alcohol or drug abuse patient.[facility] CenterIn the event this information is protected by the Federal Confidentiality of Alcohol and Drug Abuse Patient Records regulations: The Federal rules restrict any use of the information to criminally investigate or prosecute any alcohol or drug abuse patient.[facility] CenterIn the event this information is protected by the Federal Confidentiality of Alcohol and Drug Abuse Patient Records regulations: The Federal rules restrict any use of the information to criminally investigate or prosecute any alcohol or drug abuse patient.[facility] CenterIn the event this information is protected by the Federal Confidentiality of Alcohol and Drug Abuse Patient Records regulations: The Federal rules restrict any use of the information to criminally investigate or prosecute any alcohol or drug abuse patient.[facility] CenterIn the event this information is protected by the Federal Confidentiality of Alcohol and Drug Abuse Patient Records regulations: The Federal rules restrict any use of the information to criminally investigate or prosecute any alcohol or drug abuse patient.[facility] CenterIn the event this information is protected by the Federal Confidentiality of Alcohol and Drug Abuse Patient Records regulations: The Federal rules restrict any use of the information to criminally investigate or prosecute any alcohol or drug abuse patient.[facility] CenterIn the event this information is protected by the Federal Confidentiality of Alcohol and Drug Abuse Patient Records regulations: The Federal rules restrict any use of the information to criminally investigate or prosecute any alcohol or drug abuse patient.[facility] CenterIn the event this information is protected by the Federal Confidentiality of Alcohol and Drug Abuse Patient Records regulations: The Federal rules restrict any use of the information to criminally investigate or prosecute any alcohol or drug abuse patient.[facility] CenterIn the event this information is protected by the Federal Confidentiality of Alcohol and Drug Abuse Patient Records regulations: The Federal rules restrict any use of the information to criminally investigate or prosecute any alcohol or drug abuse patient.[facility] CenterIn the event this information is protected by the Federal Confidentiality of Alcohol and Drug Abuse Patient Records regulations: The Federal rules restrict any use of the information to criminally investigate or prosecute any alcohol or drug abuse patient.[facility] Reason for Visit (unrecogniz ed section and content) Specialty Diagnoses / Procedures Referred By Linn carrillo Referred To Contact [facility] Diagnoses Abnormality of gait due to impairment of balance Procedures CONSULT TO PHYSICAL THERAPY PHYSICAL THERAPY EVALUATION HIGH COMPLEX 45 MINS Tamie Kaur MD [address] [place] [address] [facility] [address] [address] Referral ID Status Reason Start Date Expiration Date Visits Requested Visits Authorized [id number] Authorized PCP Requested Referral Auto-Generate d Referral 01/05/2022 01/05/2023 99 99 Reason Comments Physical Therapy Reason Comments PT Progress Note PT Discharge Reason Comments PT Progress Note Reason Comments Medication Question Reason Onset Date Comments Refill Request 10/05/2021 SEE RX NOTES Reason Comments 10-10-2021 Colon ASC Reason Comments Follow Up colonoscopy Reason Comments Patient Question Reason Comments Covid19 Concern ER F/U Reason Comments Covid Follow Up Reason Comments Follow Up 6 mo Reason Comments Hospital Follow Up [facility] discharged Reason Comments Results Reason Comments Consult altered mental statu s Specialty Diagnoses / Procedures Referred By Linn carrillo Referred To Contact Neurology Diagnoses Altered mental status, unspecified altered mental status type Procedures CONSULT TO NEUROLOGY OFFICE/OUTPATIENT [facility] MDM 60-74 MINUTES Abdulaziz Caldera MD [address] [place] [address] Referral ID Status Reason Start Date Expiration Date V isits Requested Visits Authorized [id number] Closed PCP Requested Referral 01/01/2022 01/01/2023 1 1 Reason Comments Patient Question Medication Question Referral Request Reason Comments PT Eval Reason Comments Question Reason Onset Date Comments Refill Request 01/23/2022 Refill Request 01/25/2022 Reason Comments Refill Request Reason Comments Prescription Refills Reason Comments Anticoagulation Reason Comments 6 Month Exam ER F/U Reason Onset Date Comments Refill Request 03/22/2022 Reason Comments Established Patient Follow Up Diabetic Foot Care Reason Comments Recheck Generalized weakness Reason Comments Physical Reason Comments behavioral health social work Reason Comments Follow Up Abnormal gait Reason Onset Date Comments Refill Request 05/16/2022 Reason Onset Date Comments Refill Request 06/25/2022 Reason Onset Date Comments Opened In Error 07/09/2022 Reason Onset Date Comments Refill Request 07/09/2022 Reason Comments Orders Reason Comments Nursing Plan of Care Update Reason Comments [facility] PT POC Reason Comments OT plan of care Reason Onset Date Comments Refill Request 07/25/2022 Reason Comments Home Health-Nursing Update Reason Onset Date Comments Anticoagulation 07/31/2022 Specialty Diagnoses / Procedures Referred By Linn carrillo Referred To Contact Ent - Otolaryngology Diagnoses Chronic frontal sinusitis Procedures CONSULT TO ENT OFFICE/OUTPATIENT NEW HIGH MDM 60-74 MINUTES Abdulaziz Caldera MD [address] [place] [address] Referral ID Status Reason Start Date Expiration Date V isits Requested Visits Authorized [id number] Closed PCP Requested Referral 07/12/2022 07/12/2023 1 1 Reason Comments checking on medication Reason Comments Follow Up 4 week DM Reason Onset Date Comments Anticoagulation 08/14/2022 Reason Onset Date Comments Refill Request 08/16/2022 Reason Comments Follow Up Abnormality gate Reason Comments Appointment Reason Onset Date Comments Anticoagulation 09/25/2022 Reason Comments Established Patient Diabetic Foot Care Reason Comments Appointment Patient Update Reason Comments Patient Update Reason Comments Immunizations Care Teams (unrecognized sec tion and content) Business Development Director Relationship Specialty Start Date End Date Abdulaziz Caldera MD [address] [place] [address] PCP - General Family Practice 11/23/20 Business Development Director Relationship Specialty Start Date End Date Abdulaziz Caldera MD [address] [facility] [place] [address] PCP - General Family Practice 11/23/20 Business Development Director Relationship Specialty Start Date End Date Abdulaziz Caldera MD [address] [facility] [place] [address] PCP - General Family Practice 11/23/20 Business Development Director Relationship Specialty Start Date End Date Abdulaziz Caldera MD [address] [facility] [place] [address] PCP - General Family Practice 11/23/20 Business Development Director Relationship Specialty Start Date End Date Abdulaziz Caldera MD [facility] [place] [address] PCP - General Family Practice 11/23/20 Business Development Director Relationship Specialty Start Date End Date Abdulaziz Caldera MD [address] [facility] [place] [address] PCP - General Family Practice 11/23/20 Business Development Director Relationship Specialty Start Date End Date Abdulaziz Caldera MD [address] [facility] [place] [address] PCP - General Family Practice 11/23/20 Business Development Director Relationship Specialty Start Date End Date Abdulaziz Caldera MD [address] [facility] [place] [address] PCP - General Family Practice 11/23/20 Business Development Director Relationship Specialty Start Date End Date Abdulaziz Caldera MD [address] [facility] [place] [address] PCP - General Family Practice 11/23/20 Business Development Director Relationship Specialty Start Date End Date Abdulaziz Caldera MD [address] [facility] [place] [address] PCP - General Family Practice 11/23/20 Business Development Director Relationship Specialty Start Date End Date Abdulaziz Caldera MD [address] [facility] [place] [address] PCP - General Family Practice 11/23/20 Business Development Director Relationship Specialty Start Date End Date Abdulaziz Caldera MD [address] [facility] [place] [address] PCP - General Family Practice 11/23/20 Business Development Director Relationship Specialty Start Date End Date Abdulaziz Caldera MD [address] [facility] [place] [address] PCP - General Family Practice 11/23/20 Business Development Director Relationship Specialty Start Date End Date Abdulaziz Caldera MD [address] [facility] [place] [address] PCP - General Family Practice 11/23/20 Business Development Director Relationship Specialty Start Date End Date Abdulaziz Caldera MD [address] [facility] [place] [address] PCP - General Family Practice 11/23/20 Business Development Director Relationship Specialty Start Date End Date Abdulaziz Caldera MD [address] [facility] [place] [address] PCP - General Family Practice 11/23/20 Business Development Director Relationship Specialty Start Date End Date Abdulaziz Caldera MD [address] [facility] [place] [address] PCP - General Family Practice 11/23/20 Business Development Director Relationship Specialty Start Date End Date Abdulaziz Caldera MD [address] [facility] [place] [place] [address] PCP - General Family Practice 11/23/20 Business Development Director Relationship Specialty Start Date End Date Abdulaziz Caldera MD [address] [facility] [place] [address] PCP - General Family Practice 11/23/20 Business Development Director Relationship Specialty Start Date End Date Abdulaziz Caldera MD [address] [facility] [place] [address] PCP - General Family Practice 11/23/20 Business Development Director Relationship Specialty Start Date End Date Abdulaziz Caldera MD [address] [facility] [place] [address] PCP - General Family Practice 11/23/20 Business Development Director Relationship Specialty Start Date End Date Abdulaziz Caldera MD [address] [facility] [place] [address] PCP - General Family Medicine 11/23/20 Business Development Director Relationship Specialty Start Date End Date Abdulaziz Caldera MD [address] [facility] [place] [address] PCP - General Family Medicine 11/23/20 Business Development Director Relationship Specialty Start Date End Date Abdulaziz Caldera MD [address] [facility] [place] [address] PCP - General Family Medicine 11/23/20 Business Development Director Relationship Specialty Start Date End Date Abdulaziz Caldera MD [address] [facility] [place] [address] PCP - General Family Medicine 11/23/20 Business Development Director Relationship Specialty Start Date End Date Abdulaziz Caldera MD [address] [facility] [place] [address] PCP - General Family Medicine 11/23/20 Business Development Director Relationship Specialty Start Date End Date Abdulaziz Caldera MD [address] [facility] [place] [place] [address] PCP - General Family Medicine 11/23/20 Business Development Director Relationship Specialty Start Date End Date Abdulaziz Caldera MD [address] [facility] [place] [address] PCP - General Family Medicine 11/23/20 Business Development Director Relationship Specialty Start Date End Date Abdulaziz Caldera MD [address] [facility] [place] [address] PCP - General Family Medicine 11/23/20 Business Development Director Relationship Specialty Start Date End Date Abdulaziz Caldera MD [address] [place] [address] PCP - General Family Medicine 11/23/20 Business Development Director Relationship Specialty Start Date End Date Abdulaziz Caldera MD [address] [facility] [place] [place] [address] PCP - General Family Medicine 11/23/20 Business Development Director Relationship Specialty Start Date End Date Abdulaziz Caldera MD [address] [facility] [place] [address] PCP - General Family Medicine 11/23/20 Business Development Director Relationship Specialty Start Date End Date Abdulaziz Caldera MD [address] [place] [address] PCP - General Family Medicine 11/23/20 Business Development Director Relationship Specialty Start Date End Date Abdulaziz Caldera MD [address] [place] [address] PCP - General Family Medicine 11/23/20 Business Development Director Relationship Specialty Start Date End Date Abdulaziz Caldera MD [address] [place] [address] PCP - General Family Medicine 11/23/20 Business Development Director Relationship Specialty Start Date End Date Abdulaziz Caldera MD [address] [facility] [place] [address] PCP - General Family Medicine 11/23/20 Business Development Director Relationship Specialty Start Date End Date Abdulaziz Caldera MD [address] [facility] [place] [place] [address] PCP - General Family Medicine 11/23/20 Business Development Director Relationship Specialty Start Date End Date Abdulaziz Caldera MD [address] [facility] [place] [place] [address] PCP - General Family Medicine 11/23/20 Business Development Director Relationship Specialty Start Date End Date Abdulaziz Caldera MD [address] [facility] [place] [place] [address] PCP - General Family Medicine 11/23/20 Business Development Director Relationship Specialty Start Date End Date Abdulaziz Caldera MD [address] [facility] [place] [place] [address] PCP - General Family Medicine 11/23/20 Business Development Director Relationship Specialty Start Date End Date Abdulaziz Caldera MD [address] [facility] [place] [place] [address] PCP - General Family Medicine 11/23/20 Business Development Director Relationship Specialty Start Date End Date Abdulaziz Caldera MD [address] [facility] [place] [address] PCP - General Family Medicine 11/23/20 (unrecognized sect ion and content) No Status Records FoundNo Status Records FoundNo Status Records FoundNo Status Records Found INFORMATION SOURCE (unrecogn ized section and content) DATE CREATED AUTHOR AUTHOR'S ORGANIZ ATION 02/04/2022 [facility] DATE CREATED AUTHOR AUTHOR'S ORGANIZ ATION 04/19/2022 [facility] ([place]) DATE CREATED AUTHOR AUTHOR'S DESTINY ATION 05/30/2023 [facility] FOR RECORDS PERTAINING TO PATIENTS WHO ARE OR HAVE BEEN ENROLLED IN A CHEMICAL DEPENDENCY/SUBSTANCEABUSE PROGRAM, SOME INFORMATION MAY BE OMITTED. This clinical summary was aggregated from multiple sources. Caution should be exercised in using it in the provision of clinical care. This summary normalizes information from multiple sources, and as a consequence, information in this document may materially change the coding, format and clinical context of patient data. In addition, data may be omitted in some cases. CLINICAL DECISIONS SHOULD BE BASED ON THE PRIMARY CLINICAL RECORDS. [facility] [employer] [facility]. provides no warranty or guarantee of the accuracy or completeness of information in this document.
[2023-06-25 08:41] LABS: INR Fingerstick 3.2; Prothrombin Time Fingerstick 34.3 SEC (11.7-14.9)
== END ==
LOC: OLS.ACH 05:00
PROVIDERS: PCP Family Medicine; Visit Provider Internal Medicine
DX: I48.0 Paroxysmal atrial fibrillation (principal)
CPT/HCPCS: 36416; 85610

== ENCOUNTER → 2023-06-26 | Outpatient (REF) | payer MEDICARE, OTHER, SELFPAY ==
[2023-06-26 08:45] LABS: INR Fingerstick 2.3; Prothrombin Time Fingerstick 24.7 SEC (11.7-14.9)
== END ==
LOC: OLS.ACH 05:00
PROVIDERS: PCP Family Medicine; Visit Provider Internal Medicine
DX: I48.0 Paroxysmal atrial fibrillation (principal)
CPT/HCPCS: 36416; 85610

== ENCOUNTER → 2023-07-03 | Outpatient (REF) | payer MEDICARE, OTHER, SELFPAY ==
--- OUTSIDE RECORDS SUMMARY | 2023-07-03 04:11 | XMS RPT_ITS | CCD ---
Author Name Unknown Address [address] [place] [address] Organization [facility] Care Team Providers Care Trapper Animal Name Role Phone Abdulaziz Caldera MD Primary [...] Care Unavailab le TESTARMINDA ACEVEDO Attending Unavailable ABDULAZIZ CALDERA Primary Care Unavailab [...] pantoprazole; Translations: [PANTOPRAZOLE] Drug Allergy 03-12-2020 Diarrhea [facility] Medications Current Medications Medication Drug Class(es) Dates [...] Coronary atherosclerosis; Translations: [Atherosclerotic heart disease of [place] coronary artery without angina pectoris] Chronic Diabetes [...] sources) Long-term current use of anticoagulant; Translations: [data communications technician (current) use of anticoagulants] Onset: 05-07-2018 11-06-2018 Episodic Other aftercare (1 source) halfway (current) use of anticoagulants; Translations: [Chronic anticoagulation] Onset: 11-06-2018 Episodic Other aftercare (1 source) data communications technician (current) use of insulin; Translations: [Type 2 [...] Results Test Name Value Interpretation Reference Range [facility] it Vital Signs Date Time Vital Sign Value Performing Clinician Scott quinn 09-07-2022 11:01-0500 Body height 185.4 cm Tamie Kaur MD Work Phone: [facility] 09-07-2022 11:01-0500 Body weight 113.4 kg Tamie Kaur MD Work Phone: [facility] 09-07-2022 11:01-0500 Diastolic blood pressure 57 mm[Hg] Tamie Kaur MD Work Phone: [facility] 09-07-2022 11:01-0500 Heart rate 64 /min Tamie Kaur MD Work Phone: [facility] 09-07-2022 11:01-0500 Respiratory rate 16 /min Tamie Kaur MD Work Phone: [facility] 09-07-2022 11:01-0500 SaO2% (BldA) [Mass fraction] 99 % Tamie Kaur MD Work Phone: [facility] 09-07-2022 11:01-0500 Systolic blood pressure 124 mm[Hg] Tamie Kaur MD Work Phone: [facility] 08-09-2022 16:35-0500 Body weight 113.4 kg Abdulaziz Caldera MD Work Phone: [facility] 08-09-2022 16:35-0500 Diastolic blood pressure 62 mm[Hg] Abdulaziz Caldera MD Work Phone: [facility] 08-09-2022 16:35-0500 Heart rate 64 /min Abdulaziz Caldera MD Work Phone: [facility] 08-09-2022 16:35-0500 Respiratory rate 16 /min Abdulaziz Caldera MD Work Phone: [facility] 08-09-2022 16:35-0500 SaO2% (BldA) [Mass fraction] 96 % Abdulaziz Caldera MD Work Phone: [facility] 08-09-2022 16:35-0500 Systolic blood pressure 112 mm[Hg] Abdulaziz Caldera MD Work Phone: [facility] 04-17-2022 11:23-0400 Body height 185.4 cm Tamie Kaur MD Work Phone: [facility] 04-17-2022 11:23-0400 Body weight 114.31 kg Tamie Kaur MD Work Phone: [facility] 04-17-2022 11:23-0400 Diastolic blood pressure 71 mm[Hg] Tamie Kaur MD Work Phone: [facility] 04-17-2022 11:23-0400 Heart rate 72 /min Tamie Kaur MD Work Phone: [facility] 04-17-2022 11:23-0400 Respiratory rate 18 /min Tamie Kaur MD Work Phone: [facility] 04-17-2022 11:23-0400 SaO2% (BldA) [Mass fraction] 98 % Tamie Kaur MD Work Phone: [facility] 04-17-2022 11:23-0400 Systolic blood pressure 116 mm[Hg] Tamie Kaur MD Work Phone: [facility] 04-16-2022 13:09-0400 Body height 185.4 cm Abdulaziz Caldera MD Work Phone: [facility] 04-16-2022 13:09-0400 Body weight 114.31 kg Abdulaziz Caldera MD Work Phone: [facility] 04-16-2022 13:09-0400 Diastolic blood pressure 72 mm[Hg] Abdulaziz Caldera MD Work Phone: [facility] 04-16-2022 13:09-0400 Heart rate 70 /min Abdulaziz Caldera MD Work Phone: [facility] 04-16-2022 13:09-0400 Respiratory rate 16 /min Abdulaziz Caldera MD Work Phone: [facility] 04-16-2022 13:09-0400 SaO2% (BldA) [Mass fraction] 98 % Abdulaziz Caldera MD Work Phone: [facility] 04-16-2022 13:09-0400 Systolic blood pressure 132 mm[Hg] Abdulaziz Caldera MD Work Phone: [facility] 04-06-2022 09:36-0400 Body weight 114.31 kg Roselia Madrigal WEB PAGE DEVELOPER.[employer] Work Phone: [facility] 04-06-2022 09:36-0400 Diastolic blood pressure 62 mm[Hg] Roselia Podlogar WEB PAGE DEVELOPER.[employer]PER[employer] Work Phone: [facility] 04-06-2022 09:36-0400 Heart rate 62 /min Roselia Podlogar WEB PAGE DEVELOPER.[employer]PER[employer] Work Phone: [facility] 04-06-2022 09:36-0400 Respiratory rate 16 /min Roselia Podlogar WEB PAGE DEVELOPER.[employer]PER[employer]ENT [employer] Work Phone: [facility] 04-06-2022 09:36-0400 SaO2% (BldA) [Mass fraction] 97 % Roselia Podlogar WEB PAGE DEVELOPER.SUPER[employer]ENT [employer]ING [employer] Work Phone: [facility] 04-06-2022 09:36-0400 Systolic blood pressure 112 mm[Hg] Roselia Podlogar WEB PAGE DEVELOPER.[employer]PER[employer] Work Phone: [facility] 03-07-2022 11:12-0400 Body weight 114.76 kg Abdulaziz Caldera MD Work Phone: [facility] 03-07-2022 11:12-0400 Diastolic blood pressure 70 mm[Hg] Abdulaziz Caldera MD Work Phone: [facility] 03-07-2022 11:12-0400 Heart rate 64 /min Abdulaziz Caldera MD Work Phone: [facility] 03-07-2022 11:12-0400 Respiratory rate 16 /min Abdulaziz Caldera MD Work Phone: [facility] 03-07-2022 11:12-0400 Systolic blood pressure 118 mm[Hg] Abdulaziz Caldera MD Work Phone: [facility] 03-05-2022 12:00-0400 Diastolic blood pressure 60 mm[Hg] Rosa Elena Lemon PT [facility] 03-05-2022 12:00-0400 Systolic blood pressure 112 mm[Hg] Rosa Elena Lemon PT [facility] 01-12-2022 08:00-0400 Diastolic blood pressure 78 mm[Hg] Rosa Elena Lemon PT [facility] 01-12-2022 08:00-0400 Systolic blood pressure 130 mm[Hg] Rosa Elena Lemon PT [facility] 01-05-2022 09:56-0400 Body height 185.4 cm Tamie Kaur MD Work Phone: [facility] 01-05-2022 09:56-0400 Body weight 111.58 kg Tamie Kaur MD Work Phone: [facility] 01-05-2022 09:56-0400 Diastolic blood pressure 62 mm[Hg] Tamie Kaur MD Work Phone: [facility] 01-05-2022 09:56-0400 Heart rate 58 /min Tamie Kaur MD Work Phone: [facility] 01-05-2022 09:56-0400 Respiratory rate 16 /min Tamie Kaur MD Work Phone: [facility] 01-05-2022 09:56-0400 SaO2% (BldA) [Mass fraction] 97 % Tamie Kaur MD Work Phone: [facility] 01-05-2022 09:56-0400 Systolic blood pressure 117 mm[Hg] Tamie Kaur MD Work Phone: [facility] 01-01-2022 10:12-0400 Body temperature 97.39 [degF] Abdulaziz Caldera MD Work Phone: [facility] 01-01-2022 10:12-0400 Body weight 111.77 kg Abdulaziz Caldera MD Work Phone: [facility] 01-01-2022 10:12-0400 Diastolic blood pressure 64 mm[Hg] Abdulaziz Caldera MD Work Phone: [facility] 01-01-2022 10:12-0400 Heart rate 47 /min Abdulaziz Caldera MD Work Phone: [facility] 01-01-2022 10:12-0400 Respiratory rate 18 /min Abdulaziz Caldera MD Work Phone: [facility] 01-01-2022 10:12-0400 SaO2% (BldA) [Mass fraction] 98 % Abdulaziz Caldera MD Work Phone: [facility] 01-01-2022 10:12-0400 Systolic blood pressure 112 mm[Hg] Abdulaziz Caldera MD Work Phone: [facility] 01-01-2022 08:55-0400 Body weight 112.49 kg Justina Leonie WEB PAGE DEVELOPER.[employer]PER[employer]ENT [employer]LL[employer]ODUCTION Work Phone: [facility] 01-01-2022 08:55-0400 Diastolic blood pressure 74 mm[Hg] Justina Leonie WEB PAGE DEVELOPER.[employer] Work Phone: [facility] 01-01-2022 08:55-0400 Heart rate 60 /min Justina Leonie WEB PAGE DEVELOPER.[employer]PER[employer] Work Phone: [facility] 01-01-2022 08:55-0400 Respiratory rate 18 /min Justina Leonie WEB PAGE DEVELOPER.[employer]PER[employer]ENT [employer] Work Phone: [facility] 01-01-2022 08:55-0400 Systolic blood pressure 147 mm[Hg] Justina Leonie WEB PAGE DEVELOPER.[employer] Work Phone: [facility] 12-27-2021 21:22-0400 Diastolic blood pressure 71 mm[Hg] DR MELANIA WORKMAN MD [facility] 12-27-2021 21:22-0400 Heart rate 73 /min DR MELANIA WORKMAN MD [facility] 12-27-2021 21:22-0400 Respiratory rate 24 /min DR MELANIA WORKMAN MD [facility] 12-27-2021 21:22-0400 Systolic blood pressure 121 mm[Hg] DR MELANIA WORKMAN MD [facility] 12-27-2021 20:06-0400 Diastolic blood pressure 59 mm[Hg] DR MELANIA WORKMAN MD [facility] 12-27-2021 20:06-0400 Heart rate 80 /min DR MELANIA WORKMAN MD [facility] 12-27-2021 20:06-0400 Respiratory rate 26 /min DR MELANIA WORKMAN MD [facility] 12-27-2021 20:06-0400 Systolic blood pressure 112 mm[Hg] DR MELANIA WORKMAN MD [facility] 12-27-2021 19:19-0400 Body temperature 98.6 [degF] DR MELANIA WORKMAN MD [facility] 12-27-2021 19:19-0400 Diastolic blood pressure 76 mm[Hg] DR MELANIA WORKMAN MD [facility] 12-27-2021 19:19-0400 Heart rate 82 /min DR MELANIA WORKMAN MD [facility] 12-27-2021 19:19-0400 Respiratory rate 26 /min DR MELANIA WORKMAN MD [facility] 12-27-2021 19:19-0400 Systolic blood pressure 138 mm[Hg] DR MELANIA WORKMAN MD [facility] 12-27-2021 17:36-0400 Body temperature 102.56 [degF] DR MELANIA WORKMAN MD [facility] 12-27-2021 17:36-0400 Body weight [address] MELANIA WORKMAN MD [facility] 12-27-2021 17:36-0400 Heart rate 104 /min DR MELANIA WORKMAN MD [facility] 12-14-2021 15:10-0400 Body temperature 98.2 [degF] Abdulaziz Caldera MD Work Phone: [facility] 12-14-2021 15:10-0400 Body weight 110.77 kg Abdulaziz Caldera MD Work Phone: [facility] 12-14-2021 15:10-0400 Diastolic blood pressure 70 mm[Hg] Abdulaziz Caldera MD Work Phone: [facility] 12-14-2021 15:10-0400 Heart rate 54 /min Abdulaziz Caldera MD Work Phone: [facility] 12-14-2021 15:10-0400 Respiratory rate 16 /min Abdulaziz Caldera MD Work Phone: [facility] 12-14-2021 15:10-0400 SaO2% (BldA) [Mass fraction] 96 % Abdulaziz Caldera MD Work Phone: [facility] 12-14-2021 15:10-0400 Systolic blood pressure 130 mm[Hg] Abdulaziz Caldera MD Work Phone: [facility] 12-08-2021 16:23-0400 Diastolic blood pressure 64 mm[Hg] Abdulaziz Caldera MD Work Phone: [facility] 12-08-2021 16:23-0400 Heart rate 85 /min Abdulaziz Caldera MD Work Phone: [facility] 12-08-2021 16:23-0400 Systolic blood pressure 110 mm[Hg] Abdulaziz Caldera MD Work Phone: [facility] 10-23-2021 13:05-0400 Body temperature 97.3 [degF] Marcella Le Mars PA-C Work Phone: [facility] 10-23-2021 13:05-0400 Body weight 114.58 kg Marcella Xavier PA-C Work Phone: [facility] 10-23-2021 13:05-0400 Diastolic blood pressure 56 mm[Hg] Marcella Le Mars PA-C Work Phone: [facility] 10-23-2021 13:05-0400 Heart rate 85 /min Marcella Le Mars PA-C Work Phone: [facility] 10-23-2021 13:05-0400 SaO2% (BldA) [Mass fraction] 98 % Marcella Xavier PA-C Work Phone: [facility] 10-23-2021 13:05-0400 Systolic blood pressure 132 mm[Hg] Marcella Xavier PA-C Work Phone: [facility] 10-10-2021 10:07-0400 Diastolic blood pressure 68 mm[Hg] Richard Jones MD Work Phone: [facility] 10-10-2021 10:07-0400 Heart rate 69 /min Richard Jones MD Work Phone: [facility] 10-10-2021 10:07-0400 Respiratory rate 16 /min Richard Jones MD Work Phone: [facility] 10-10-2021 10:07-0400 SaO2% (BldA) [Mass fraction] 98 % Richard Jones MD Work Phone: [facility] 10-10-2021 10:07-0400 Systolic blood pressure 150 mm[Hg] Richard Jones MD Work Phone: [facility] 10-10-2021 08:01-0400 Body temperature 97 [degF] Richard Jones MD Work Phone: [facility] Encounters Encounter Date Encounter Type Care Provider Facility Start: 01-28-2023 Telephone encounter Luis Caldera MD Work Phone: [facility] Procedures Date Procedure Procedure Detail Performing Clinician Start: 04-06-2022 INFLUENZA SEASONAL QUADRIVALENT HIGH DOSE AGE 65+ Roselia Podlogar WEB PAGE DEVELOPER.SUPER[employer]ENT [employer]LLING [employer]ODUCTION Work Phone: Start: 04-06-2022 PFIZER-BIONTECH COVI D-19 BIVALENT BOOSTER VACCINE, AGE 12+ YR Roselia Podlogar WEB PAGE DEVELOPER.SUPER[employer]ENT [employer]ODUCTION Work Phone: Start: 04-06-2022 Adult depression scr eening assessment Roselia Podlogar WEB PAGE DEVELOPER.[employer]PER[employer]ENT [employer] Work Phone: Start: 03-07-2022 PROTHROMBIN TIME/PT Chr mine Caldera MD Work Phone: Start: 03-07-2022 Adult depression scr eening assessment Abdulaziz Caldera MD Work Phone: Start: 01-09-2022 Echo tthrc r-t 2d w/wom-mode compl spec&colr d Justina E Leonie WEB PAGE DEVELOPER.SUPERINT[employer]ENT [employer]LLING [employer]ODUCTION Work Phone: Start: 01-01-2022 Urnls dip stick/tabl [...] Activity Detail Author Start: 10-11-2031 Colonoscopy COLONOSCOPY [facility] Start: 10-11-2031 COLORECTAL CANCER SCREENING COLORECTAL CANCER SCREENING [facility] Start: 10-10-2024 Colonoscopy COLONOSCOPY [facility] Start: 10-10-2024 COLORECTAL CANCER SCREENING COLORECTAL CANCER SCREENING [facility] Start: 01-05-2024 ANNUAL PCP TEAM CHRONIC DISEASE VISIT ANNUAL PCP TEAM CHRONIC DISEASE VISIT [facility] Start: 01-05-2024 BP CONTROLLED (<130/80) BP CONTROLLED (<130/80) [facility] Start: 12-04-2023 BP CONTROLLED (<130/80) BP CONTROLLED (<130/80) [facility] Start: 11-20-2023 ANNUAL PCP TEAM CHRONIC DISEASE VISIT ANNUAL PCP TEAM CHRONIC DISEASE VISIT [facility] Start: 11-20-2023 BP CONTROLLED (<130/80) BP CONTROLLED (<130/80) [facility] Start: 09-07-2023 BP CONTROLLED (<130/80) BP CONTROLLED (<130/80) [facility] Start: 08-13-2023 HEMOGLOBIN/HEMATOCRIT HEMOGLOBIN/HEMATOCRIT [facility] Start: 08-13-2023 SERUM CREATININE SERUM CREATININE [facility] Start: 08-09-2023 ANNUAL PCP TEAM CHRONIC DISEASE VISIT ANNUAL PCP TEAM CHRONIC DISEASE VISIT [facility] Start: 08-09-2023 BP CONTROLLED (<130/80) BP CONTROLLED (<130/80) [facility] Start: 07-12-2023 ANNUAL PCP TEAM CHRONIC DISEASE VISIT ANNUAL PCP TEAM CHRONIC DISEASE VISIT [facility] Start: 07-12-2023 BP CONTROLLED (<130/80) BP CONTROLLED (<130/80) [facility] Start: 04-17-2023 BP CONTROLLED (<130/80) BP CONTROLLED (<130/80) [facility] Start: 04-16-2023 ANNUAL PCP TEAM CHRONIC DISEASE VISIT ANNUAL PCP TEAM CHRONIC DISEASE VISIT [facility] Start: 04-06-2023 Adult depression screening assessment DEPRESSION SCREENING [facility] Start: 04-06-2023 ANNUAL PCP TEAM CHRONIC DISEASE VISIT ANNUAL PCP TEAM CHRONIC DISEASE VISIT [facility] Start: 04-06-2023 BP CONTROLLED (<130/80) BP CONTROLLED (<130/80) [facility] Start: 03-30-2023 3 comp foot exam completed DIABETIC FOOT EXAM [facility] Start: 03-15-2023 Influenza vaccination INFLUENZA (#1) [facility] Start: 03-07-2023 Adult depression screening assessment DEPRESSION SCREENING [facility] Start: 03-07-2023 ANNUAL PCP TEAM CHRONIC DISEASE VISIT ANNUAL PCP TEAM CHRONIC DISEASE VISIT [facility] Start: 03-07-2023 BP CONTROLLED (<130/80) BP CONTROLLED (<130/80) [facility] Start: 03-07-2023 SERUM CREATININE SERUM CREATININE [facility] Start: 03-05-2023 BP CONTROLLED (<130/80) BP CONTROLLED (<130/80) [facility] Start: 03-02-2023 Hepatitis B screening URINE ALBUMIN:CREATININE RATIO [facility] Start: 02-10-2023 Hemoglobin A1c/Hemoglobin.total in Blood HBA1C [facility] Start: 01-05-2023 BP CONTROLLED (<130/80) BP CONTROLLED (<130/80) [facility] Start: 01-01-2023 ANNUAL PCP TEAM CHRONIC DISEASE VISIT ANNUAL PCP TEAM CHRONIC DISEASE VISIT [facility] Start: 01-01-2023 BP CONTROLLED (<130/80) BP CONTROLLED (<130/80) [facility] Start: 01-01-2023 Hepatitis B surface antibody level LDL CHOLESTEROL [facility] Start: 01-01-2023 SERUM CREATININE SERUM CREATININE [facility] Start: 12-14-2022 ANNUAL PCP TEAM CHRONIC DISEASE VISIT ANNUAL PCP TEAM CHRONIC DISEASE VISIT [facility] Start: 12-08-2022 ANNUAL PCP TEAM CHRONIC DISEASE VISIT ANNUAL PCP TEAM CHRONIC DISEASE VISIT [facility] Start: 12-08-2022 BP CONTROLLED (<130/80) BP CONTROLLED (<130/80) [facility] Start: 09-06-2022 ANNUAL PCP TEAM CHRONIC DISEASE VISIT ANNUAL PCP TEAM CHRONIC DISEASE VISIT [facility] Start: 09-02-2022 Hemoglobin A1c/Hemoglobin.total in Blood HBA1C [facility] Start: 08-30-2022 SERUM CREATININE SERUM CREATININE [facility] Start: 08-09-2022 End: 10-09-2022 CBC W Auto Differential panel - Blood CBC + DIFF Lab Routine Type 2 diabetes mellitus with diabetic neuropathy, with long-term current use of insulin (HCC) Expected: 08/09/2022, Expires: 10/09/2022 [facility] Work Phone: Immunizations Immunization Date Immunization Notes Care Provider Fa cili 04-06-2022 COVID-19 booster vaccine, age 12+ yr, bivalent (PFIZER-BIONTECH) Roselia Podlogdavid WEB PAGE DEVELOPER.SUPERINT[employer]ENT [employer]LLING [employer]ODUCTION Work Phone: [facility] 04-06-2022 influenza, high-dose , quadrivalent vaccine (FLUZONE HIGH DOSE QUADRIVALENT) Roselia Raglandlogdavid WEB PAGE DEVELOPER.SUPERINTENDENT [employer]LLING [employer] PRODUCTION Work Phone: [facility] 06-14-2021 influenza, high-dose , quadrivalent vaccine (FLUZONE HIGH DOSE QUADRIVALENT) Abdulaziz Caldera MD Work Phone: [facility] Work Phone: 02-24-2021 zoster vaccine recombinant Abdulaziz Caldera MD Work Phone: [facility] 09-30-2020 COVID-19 vaccine, ag e 12+ yr (PFIZER-BIONTECH - PURPLE TOP) Abdulaziz Caldera MD Work Phone: [facility] 09-09-2020 COVID-19 vaccine, ag e 12+ yr (PFIZER-BIONTECH - PURPLE TOP) Abdulaziz Caldera MD Work Phone: [facility] 04-16-2020 influenza, high-dose , quadrivalent vaccine (FLUZONE HIGH DOSE QUADRIVALENT) Abdulaziz Caldera MD Work Phone: [facility] 03-14-2020 zoster vaccine recombinant Abdulaziz Caldera MD Work Phone: [facility] Work Phone: 04-02-2019 influenza, high dose seasonal, preservative-free Abdulaziz Caldera MD Work Phone: [facility] Work Phone: 04-15-2018 influenza, high dose seasonal, preservative-free Abdulaziz Caldera MD Work Phone: [facility] 06-13-2017 influenza, high dose seasonal, preservative-free Abdulaziz Caldera MD Work Phone: [facility] 06-20-2016 influenza, high dose seasonal, preservative-free Abdulaziz Caldera MD Work Phone: [facility] 11-24-2015 pneumococcal polysaccharide vaccine, 23 valent Abdulaziz Caldera MD Work Phone: [facility] 05-16-2015 influenza, high dose seasonal, preservative-free Abdulaziz Caldera MD Work Phone: [facility] 10-27-2014 pneumococcal conjuga te vaccine, 13 valent Abdulaziz Caldera MD Work Phone: [facility] 10-27-2014 zoster vaccine, live Socrates Caldera MD Work Phone: [facility] 06-11-2011 influenza virus vaccine, unspecified formulation Abdulaziz Caldera MD Work Phone: [facility] 12-25-2010 tetanus toxoid, redu veronika diphtheria toxoid, and acellular pertussis vaccine, adsorbed Abdulaziz Caldera MD Work Phone: [facility] 04-25-2009 pneumococcal polysaccharide vaccine, 23 valent Abdulaziz Caldera MD Work Phone: [facility] 03-21-2000 diphtheria and tetan us toxoids, adsorbed for pediatric use Abdulaziz Caldera MD Work Phone: [facility] Work Phone: 02-11-1961 poliovirus vaccine, inactivated Abdulaziz Caldera MD Work Phone: [facility] Work Phone: 03-25-1959 poliovirus vaccine, inactivated Abdulaziz Caldera MD Work Phone: [facility] Work Phone: 10-16-1956 poliovirus vaccine, inactivated Abdulaziz Caldera MD Work Phone: [facility] Work Phone: 01-12-1956 poliovirus vaccine, inactivated Abdulaziz Caldera MD Work Phone: [facility] Work Phone: 12-03-1955 poliovirus vaccine, inactivated Abdulaziz Caldera MD Work Phone: [facility] Work Phone: Payers Date Payer Category Payer Unknown HOSPITAL/MEDICAL GENERIC MEDICAL GENERIC [id number] 2012-Present [phone] [address] [place] [address] Indemnity [id number] 2012 Unknown HOSPITAL/MEDICAL GENERIC MEDICAL GENERIC [id number] 2012-Present [phone] [address] [place] [address] Indemnity [id number] 2012 Unknown [id number] 2012 Medicare MEDICARE MEDICAR E A AND B [id number] 2012-Present [phone] [place] [address] Medicare [id number] 2012 Medicare MEDICARE MEDICAR E A AND B [id number] 2012-Present [phone] [place] [address] Medicare [id number] 2012 Medicare [id number] 1945 Unknown [id number] Social History Date Type Detail Facility Start: 11-23-2020 End: 04-06-2022 Tobacco smoking status NHIS Never smoked tobacco [facility] Start: 09-06-2021 End: 12-03-2022 Alcohol intake Current non-drinker of alcohol (finding) [facility] Start: 1945 Sex Assigned At Not on file [facility] Start: 08-07-2021 End: 04-17-2022 Exposure to SARS-CoV-2 (event) Not sure [facility] Tobacco smoking status No Smokin g Status Entered [facility] Sex Assigned At Male [facility] Start: 01-02-2022 End: 01-12-2022 Exposure to SARS-CoV-2 (event) Unable to assess [facility] Work Phone: Start: 11-23-2020 End: 04-06-2022 Tobacco use and exposure Smokeless tobacco non-user [facility] Work Phone: Start: 11-19-2022 End: 12-03-2022 History of Social function [facility] Work Phone: Start: 11-19-2022 End: 12-03-2022 Tobacco use panel [facility] Work Phone: Adult Depression Screening Assessment 2 [facility] Work Phone: Medical Equipment Procedure Code Equipment [...] Facility 05-28-2023 Note Patient Outreach (EVELYN ROGERS) RIHCARD ROY ([id number]) 1945 M Date Time Provider Department 05/28/23 GUDELIA HUITRON During your visit today, we recorded the following information about you: Gudelia Huitron MA 05/28/2023 12:44 PM Signed POPULATION HEALTH NAVIGATION OUTREACH Action/FYI NO ANSWER NOWBOXHART MESSAGE SENT ANNUAL MEDICARE WELLNESS Advance Directive Discussion Never done HbA1C due on 02/10/2023 Influenza Vaccine(1) due on 03/15/2023 Patient Identified by Name and : NO Outreach Outcome/Action Unable to reach patient: Phone number not valid / voicemail full TurboTranslationst message sent Did you use a PCP [...] time a week. - blood sugar diagnostic ([employer] ULTRA TEST) test strip Test blood sugar(s) [...] due to im (more content not included)... [facility] 05-28-2023 Note HNO ID: [id number] Author: Gudelia Huitron MA Service: ? 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 Type: Progress Notes Filed: 05/28/2023 12:44 PM Note Text: POPULATION HEALTH NAVIGATION OUTREACH Action/I NO ANSWER NOWBOXHART MESSAGE SENT ANNUAL MEDICARE WELLNESS Advance Directive Discussion Never done HbA1C due on 02/10/2023 Influenza Vaccine(1) due on 03/15/2023 Patient Identified by Name and : NO Outreach Outcome/Action Unable to reach patient: Phone number not valid / voicemail full FlxOnehart message sent Did you use a PCP [...] Huitron MA May 28, 2023 7:41 AM [facility] 02-12-2023 Note Patient Outreach ([place] [facility]) RICHARD ROY ([id number]) 1945 M Date Time Provider Department 02/12/23 ABDULAZIZ CALDERA During your visit today, we recorded the following information about you: Allergies As of Date: 02/12/2023 Noted Allergy Reaction [facility] 09/24/2019 6 - Diarrhea Date Reviewed: 01/04/2023 Reviewed by: Tamika Grijalva LPN - Fully Assessed Visit Diagnosis:Diabetic retinopathy of right eye (HCC) [E11.319] Order(s):HGB A1C [TPYKG1V] Order #: [id number] FUTURE Prescriptions as of 02/15/2023 - metFORMIN [...] Encounter Status:Closed by SOLA RANDLE on 02/15/23 [facility] 01-28-2023 Miscellaneous Notes Miya with [facility] calls to report pt was admitted to their facility over the weekend. Miya is requesting immunization record be faxed to: [phone]. Immunization record faxed as requested. Tania Heller LPN documented in this encounter [facility] 01-24-2023 Miscellaneous Notes Phoned patient's and reviewed [...] Patient's calling to say patient was at [facility] for rehabilitation after his hospitalization @ [facility] for confusion on 01/04. He was sent by squad to [facility] from [facility] on 01/21 due to episode of decreased [...] post hospital stay but it won't be [facility]. Vannessa Jorge, JACEY documented in this encounter [facility] 01-04-2023 Note HNO ID: [id number] Author: Abdulaziz Caldera MD Service: ? Author [...] Benign-Dr. 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 ([facility]) 05/25/2018 History of transfusion Hyperlipidemia LDL goal < 100 04/01/2012 NSTEMI (non-ST elevated myocardial infarction) ([facility]) Pulmonary embolus, right ([facility]) 09/25/2013 Status post aortic valve repair 2005 Thoracic aneurysm without mention of rupture Type 2 diabetes mellitus with stage 3 chronic kidney disease, with long-term current use of insulin ([facility]) 06/20/2016 Vitamin D deficiency 01/03/2022 Previous Surgical History PAST SURGICAL HISTORY Procedure Laterality Date ABDOMINAL SURGERY HX AMPUTATION METATARSAL+TOE,SINGLE Right 05/25/2018 with delayed closure on 05/28/18. Dr. Obregon at [facility] [place] COLONOSCOPY 10/10/2021 repeat in 3 years COLONOSCOPY [...] Yes Current Facility-Administ (more content not included)... [facility] 01-04-2023 Miscellaneous Notes Pt was seen [...] recommend ER evaluation. documented in this encounter [facility] 01-04-2023 Miscellaneous Notes No return call received, [...] Vannessa Jorge RN documented in this encounter [facility] 01-03-2023 Note HNO ID: [id number] Author: Justina Escoto PT Service: ? Author [...] included: Therapeutic exercise, Neuromuscular re-education, Therapeutic activities, Self-alf management, and Gait training. Goals for Episode [...] PARTIALLY MET, improved 8 to 9 reps [place] in home exercise program including cardiovascular exercise. [...] in proper exercise (more content not included)... [facility] 01-03-2023 History of Presen t illness [...] included: Therapeutic exercise, Neuromuscular re-education, Therapeutic activities, Self-alf management, and Gait training. Goals for Episode [...] PARTIALLY MET, improved 8 to 9 reps [place] in home exercise program including cardiovascular exercise. [...] with an (*). Patient education as noted. Self-Penitentiary Management: 1: *strongly enouraged f/u with physician [...] Justina Escoto PT documented in this encounter [facility] 12-31-2022 Note HNO ID: [id number] Author: Justina Escoto PT Service: ? Author [...] Treatment Time Minutes (timed/untimed): 42 Ira Ramos, FLAGGER Justina Escoto, PT [facility] 12-31-2022 History of Presen t illness [...] ALISIA Burch PT documented in this encounter [facility] 12-27-2022 Note HNO ID: [id number] Author: Justina Escoto PT Service: ? Author [...] Treatment Time Minutes (timed/untimed): 40 Ira Ramos, FLAGGER Justina Escoto, PT [facility] 12-27-2022 History of Presen t illness [...] ALISIA Burch PT documented in this encounter [facility] 12-24-2022 Note HNO ID: [id number] Author: Justina Escoto PT Service: ? Author [...] was facilitated with verbal and visual cueing. Self-Penitentiary Management: 1: *strongly encouraged pt. to be [...] Time Minutes (timed/untimed): 40 Justina Escoto, PT [facility] 12-24-2022 History of Presen t illness [...] was facilitated with verbal and visual cueing. Self-Penitentiary Management: 1: *strongly encouraged pt. to be [...] Justina Escoto PT documented in this encounter [facility] 12-17-2022 Note HNO ID: [id number] Author: Justina Escoto PT Service: ? Author [...] of gait belt. Patient education as noted. Self-Penitentiary Management: 1: *discussed automatic lights 2: *discussed [...] Time Minutes (timed/untimed): 40 Justina Escoto, PT [facility] 12-17-2022 History of Presen t illness [...] of gait belt. Patient education as noted. Self-Penitentiary Management: 1: *discussed automatic lights 2: *discussed [...] Justina Escoto PT documented in this encounter [facility] 12-14-2022 Note HNO ID: [id number] Author: Justina Escoto PT Service: ? Author [...] Time Minutes (timed/untimed): 40 Justina Escoto, PT [facility] 12-14-2022 History of Presen t illness [...] Justina Escoto PT documented in this encounter [facility] 12-12-2022 Note HNO ID: [id number] Author: Justina Escoto PT Service: ? Author [...] Time Minutes (timed/untimed): 40 Justina Escoto, PT [facility] 12-12-2022 History of Presen t illness [...] Justina Escoto PT documented in this encounter [facility] 12-06-2022 Note HNO ID: [id number] Author: Justina Escoto, PT Service: ? Author [...] Time Minutes (timed/untimed): 40 Justina Escoto, PT [facility] 12-03-2022 Note HNO ID: [id number] Author: Bobbi Garcia MD Service: ? Author Type: Physician Type: Progress Notes Filed: 12/03/2022 12:13 PM Note Text: [facility]IOLOGY Cardiology ([facility]) [address] [id number] OUTPATIENT VISIT DATE 12/03/2022 PRIMARY CARE PHYSICIAN: Abdulaziz Caldera [address] [place] [address] HISTORY OF PRESENT ILLNESS: Mr. 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 ([facility]) 05/25/2018 History of transfusion Hyperlipidemia LDL goal < 100 04/01/2012 NSTEMI (non-ST elevated myocardial infarction) ([facility]) Pulmonary embolus, right ([facility]) 09/25/2013 Status post aortic valve repair 2005 Thoracic aneurysm without mention of rupture Type 2 diabetes mellitus with stage 3 chronic kidney disease, with long-term current use of insulin ([facility]) 06/20/2016 Vitamin D deficiency 01/03/2022 PAST SURGICAL HISTORY Procedure Laterality Date ABDOMINAL SURGERY HX AMPUTATION METATARSAL+TOE,SINGLE Right 05/25/2018 with delayed closure on 05/28/18. Dr. Obregon at [facility] [place] COLONOSCOPY 10/10/2021 repeat in 3 years COLONOSCOPY [...] 5 EachRfl: 5 warfarin (COUMADIN) 5 mg [id number] mg Saturday and Saturday, 7.5 mg all [...] Units subcutaneously daily (more content not included)... [facility] 12-03-2022 Note HNO ID: [id number] Author: Justina Escoto, PT Service: ? Author [...] facilitated with verbal, visual, and tactile cueing. Self-Penitentiary Management: 1: *at length discussed importance of letting physician know about pt. concerns with his loss of interest in things prior to COVID-19 pandemic 2: *discussed that motivation will come from the pt. 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 3: *discussed with and pt. that pt. stating I'm lazy. is not his personality and pt. states that he does not want to be this way, but he wants to be comfortable. (more content not included)... [facility] 11-29-2022 Note HNO ID: [id number] Author: Justina Escoto, PT Service: ? Author [...] 11 repetitions to reflect decreased fall risk. [place] in home exercise program including cardiovascular exercise. [...] Planned: 12 Planned Treatment Interventions: Therapeutic exercise (63530), Neuromuscular re-education (00389), Manual therapy (08727), Therapeutic activities (33884), Self-alf management (23849), Gait Training (89666), Patient/Family/Caregiver Education PLAN FOR NEXT VISIT: Assess [...] <20 [facility] (more content not included)... [facility] 11-20-2022 Miscellaneous Notes OMAR 11/19/22 Appointment [...] to the pharmacy. Please call patient at: [phone]. Nola Castro Pss documented in this encounter [facility] 11-19-2022 Miscellaneous Notes Pt notified of results [...] result): 09/24/2022 2.5 documented in this encounter [facility] 11-19-2022 Note HNO ID: [id number] Author: Abdulaziz Caldera MD Service: ? Author [...] Benign-Dr. 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 ([facility]) 05/25/2018 History of transfusion Hyperlipidemia LDL goal < 100 04/01/2012 NSTEMI (non-ST elevated myocardial infarction) ([facility]) Pulmonary embolus, right ([facility]) 09/25/2013 Status post aortic valve repair 2004 Thoracic aneurysm without mention of rupture Type 2 diabetes mellitus with stage 3 chronic kidney disease, with long-term current use of insulin ([facility]) 06/20/2016 Vitamin D deficiency 01/03/2022 Previous Surgical History PAST SURGICAL HISTORY Procedure Laterality Date ABDOMINAL SURGERY HX AMPUTATION METATARSAL+TOE,SINGLE Right 05/25/2018 with delayed closure on 05/28/18. Dr. Obregon at [facility] [place] COLONOSCOPY 10/10/2021 repeat in 3 years COLONOSCOPY [...] chloride 0.9 % (more content not included)... [facility] 10-22-2022 Note HNO ID: [id number] Author: Arminda Obregon Service: ? Author Type: [...] RTC in 3-4 months. Arminda Obregon DPM [facility] 10-22-2022 Note HNO ID: [id number] Author: Blaire Sandoval RN Service: ? Author Type: ? Type: Progress Notes Filed: 10/22/2022 3:47 PM Note Text: Patient presents with: Left Foot - Established Patient, Diabetic Foot Care Right Foot - Established Patient, Diabetic Foot Care [facility] 10-22-2022 History of Presen t illness [...] Diabetic Foot Care documented in this encounter [facility] 10-22-2022 Instructions Arminda Obregon - 10/22/2022 3:34 [...] (or decreased sensation in your feet) a track inspecting supervisor should always cut your toenails. Be Careful [...] Go to your health care provider or track inspecting supervisor to treat these conditions. documented in this encounter [facility] 09-25-2022 Miscellaneous Notes Patient notified. Voices understanding. [...] or narrative: no documented in this encounter [facility] 09-07-2022 Note HNO ID: [id number] Author: Tamei Kaur MD Service: ? Author Type: Physician [...] evaluation of folllow up after hospitalization in [facility]. he was admitted because of syncopal [...] others Since covid hit they went to [facility] and was staying in the house by [...] Benign-Dr. 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 ([facility]) 05/25/2018 History of transfusion Hyperlipidemia LDL goal < 100 04/01/2012 NSTEMI (non-ST elevated myocardial infarction) ([facility]) Pulmonary embolus, right ([facility]) 09/25/2013 Status post aortic valve repair 2004 Thoracic aneurysm without mention of rupture Type 2 diabetes mellitus with stage 3 chronic kidney disease, with long-term current use of insulin ([facility]) 06/20/2016 Vitamin D deficiency 01/03/2022 PSH: PAST SURGICAL HISTORY Procedure Laterality Date ABDOMINAL SURGERY HX AMPUTATION METATARSAL+TOE,SINGLE Right 05/25/2018 (more content not included)... [facility] 09-07-2022 Miscellaneous Notes Call to patient. Provided number to schedule- [phone]. Offered to transfer patient to schedule but patient declined to schedule stating he could call later. PAOLA Potter, RN September 07, 2022 1:11 PM Suzanne please let patient know how to proceed with driving evaluation I already put the order in computer documented in this encounter [facility] 09-07-2022 History of Presen t illness Narrative [...] evaluation of folllow up after hospitalization in [facility]. he was admitted because of syncopal [...] others Since covid hit they went to [facility] and was staying in the house by [...] Benign-Dr. 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 ([facility]) 05/25/2018 History of transfusion Hyperlipidemia LDL goal < 100 04/01/2012 NSTEMI (non-ST elevated myocardial infarction) ([facility]) Pulmonary embolus, right ([facility]) 09/25/2013 Status post aortic valve repair 2005 Thoracic aneurysm without mention of rupture Type 2 diabetes mellitus with stage 3 chronic kidney disease, with long-term current use of insulin ([facility]) 06/20/2016 Vitamin D deficiency 01/03/2022 PSH: PAST SURGICAL HISTORY Procedure Laterality Date ABDOMINAL SURGERY HX AMPUTATION METATARSAL+TOE,SINGLE Right 05/25/2018 with delayed closure on 05/28/18. Dr. Obregon at [facility] [place] COLONOSCOPY 10/10/2021 repeat in 3 years COLONOSCOPY [...] one time a week. blood sugar diagnostic ([employer] ULTRA TEST) test strip Test blood sugar(s) [...] gait ,unsteady Cannot tandem Tamie Kaur M.D. [facility] [place] Department of Neurology Total time in minutes [...] on at night. documented in this encounter [facility] 08-28-2022 Miscellaneous Notes Phoned patient and updated [...] debra Heller LPN documented in this encounter [facility] 08-16-2022 Miscellaneous Notes Patient has been identified [...] patient. Grecia Bustillo documented in this encounter [facility] 08-14-2022 Miscellaneous Notes Phoned patient and updated [...] or narrative: no documented in this encounter [facility] 08-09-2022 Note HNO ID: [id number] Author: Abdulaziz Caldera MD Service: ? Author [...] 12 months ago. Going to schedule appointment [facility]. 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 Asymtpomatic still on medical management. Has completed his home PT/OT. Echo and stress test at [facility] were negative/normal. Has follow up with Dr. Garcia on 12/03. questioning if they should be seen sooner. BP well controlled with current regimen <130/80. BPH: With use of flomax, patient is getting up once at night to urinate. Has weak stream, but denies straining, incomplete emptying, dysuria, hematuria, incontinence. Followed up with ENT in [place] for chronic frontal sinusitis on CT/MRI going [...] closure on 05/28/18. Dr. Obregon at [facility] [place] COLONOSCOPY 10/10/2021 repeat in 3 years COLONOSCOPY [...] daily. For cholesterol. (more content not included)... [facility] 08-09-2022 History of Presen t illness [...] 12 months ago. Going to schedule appointment [facility]. 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 Asymtpomatic still on medical management. Has completed his home PT/OT. Echo and stress test at [facility] were negative/normal. Has follow up with Dr. Garcia on 12/03. questioning if they should be seen sooner. BP well controlled with current regimen <130/80. BPH: With use of flomax, patient is getting up once at night to urinate. Has weak stream, but denies straining, incomplete emptying, dysuria, hematuria, incontinence. Followed up with ENT in [place] for chronic frontal sinusitis on CT/MRI going [...] goal < 100 04/01/2012 Pulmonary embolus, right ([facility]) 09/25/2013 Status post aortic valve repair 2005 Thoracic aneurysm without mention of rupture Type 2 diabetes mellitus with stage 3 chronic kidney disease, with long-term current use of insulin ([facility]) 06/20/2016 Vitamin D deficiency 01/03/2022 Previous Surgical History PAST SURGICAL HISTORY Procedure Laterality Date ABDOMINAL SURGERY HX AMPUTATION METATARSAL+TOE,SINGLE Right 05/25/2018 with delayed closure on 05/28/18. Dr. Obregon at [facility] [place] COLONOSCOPY 10/10/2021 repeat in 3 years COLONOSCOPY [...] by mouth once daily. blood sugar diagnostic ([employer] ULTRA TEST) test strip Test blood sugar(s) [...] Abs Lymph 1.00 - 4.00 k/uL 1.81 [place]% % 6.9 Abs [place] <0.87 k/uL 0.86 [place]% % 3.1 Abs [...] neuropathy, with long-term current use of insulin ([facility]) - ICD9: 250.60, 357.2, V58.67, ICD10: E11.40, Z79.4 (primary diagnosis) improved control - Continue current medications - Blood glucose monitoring on a four times a day schedule - Encouraged regular aerobic exercise and weight loss - Follow up in 6 months, sooner should any other issues arise. - Discussed diabetic education issues of group home diabetic complications, hypoglycemic symptoms, hyperglycemic symptoms, diet, medications- side effects and need for compliance, importance of exercise, use and side effects of insulin, and importance of annual examinations with Opthalmology with patient. - HGB A1C - COMP METABOLIC PANEL - INSULIN ASPART (U-100) 100 UNIT/ML (3 ML) SUBCUTANEOUS PEN - CBC + DIFF 2. Diabetic polyneuropathy associated with type 2 diabetes mellitus ([facility]) - ICD9: 250.60, 357.2, ICD10: E11.42 Controlled on current regimen. 3. NSTEMI (non-ST elevated myocardial infarction) ([facility]) - ICD9: 410.70, ICD10: I21.4 Patient asymptomatic [...] Abdulaziz Caldera MD documented in this encounter [facility] 08-06-2022 Miscellaneous Notes Phoned patient and updated him with provider's message. Patient voiced understanding. I would not recommend a baby ASA for this patient. Pt called to check on refill on baby aspirin. This is not on med list. Pt asking if he should be taking this. Please advise pt. Mila Castro LPN documented in this encounter [facility] 08-06-2022 Note HNO ID: [id number] Author: Arminda Jaimes MD Service: ? Author [...] physician via mail or electronic medical record. [facility] 08-06-2022 History of Presen t illness [...] electronic medical record. documented in this encounter [facility] 07-31-2022 Miscellaneous Notes Spoke with patient , [...] Rebecca Esteban LPN documented in this encounter [facility] 07-27-2022 Miscellaneous Notes [employer] message not read as of 07/27/2022. Called and spoke with patient. Appt rescheduled to 09/07/2022 at 11:00 AM Meghana Burgess Due to change in provider's schedule, appt on 08/21/2022 needs rescheduled. Patient notified via [employer] message on 07/05/2022. Meghana Burgess documented in this encounter [facility] 07-26-2022 Miscellaneous Notes Thanks. Darlyn, a nurse with [facility] calling to state she has discharged pt from custodial today. Pt is doing really well. No call back needed. Thank you. documented in this encounter [facility] 01-11-2023 Miscellaneous Notes Last Office Visit: 07/12/2022 Future Office Visit: 08/09/2022 Requested Prescriptions Pending Prescriptions Disp Refills amLODIPine (NORVASC) 2.5 mg tablet 30 tablet 5 Sig: Take 1 tablet by mouth once daily. Date of Last Labs: 03/02/2022 documented in this encounter [facility] 07-17-2022 Miscellaneous Notes Reviewed and agree. Maverick PT calling from [facility] to report plan of care for patient and PT will visit patient 2 times a week for 3 weeks. PT will work with patient on functional mobility training. Halima Diaz RN documented in this encounter [facility] 07-17-2022 Miscellaneous Notes Reviewed. Barbi from [facility] calling with OT plan of care, one time visit only, patient denies any further OT needs. No call back needed. documented in this encounter [facility] 07-13-2022 Miscellaneous Notes Left detailed message on confidential line Ewa Andino Ma agree Chiki, a nurse with [facility] calling with [facility] Plan of Care for patient: Patient will be seen 1 time per week for 4 weeks for BP monitoring. No call back needed if provider agreeable. Thank you. documented in this encounter [facility] 07-12-2022 Note HNO ID: [id number] Author: Abdulaziz Caldera MD Service: ? Author Type: Physician Type: Progress Notes Filed: 07/17/2022 8:33 AM Note Text: Chief Complaint Patient presents with: Hospital F/U: Admitted 07/09/22 discharged 07/11/22 HPI Richard Roy is a 76 year old male who presents here today for Hospital Discharge Follow up.. Patient was admitted to [facility] from 07/09 to 07/11 after presenting to [...] to follow up with our office and shot peen operator. Since discharge yesterday, patient has been doing [...] Benign-Dr. 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 Dr. Obregon at [facility] [place] COLONOSCOPY 10/10/2021 repeat in 3 years COLONOSCOPY [...] 0.4 mg Take (more content not included)... [facility] 07-12-2022 Miscellaneous Notes Karly was notified Ewa Andino Ma Agree and will follow Karly with [facility] called and reports Pt was discharged yesterday and they received a referral for PT/OT/SN. They are going to do their start of care tomorrow, and she was asking if the provider would be willing to follow. documented in this encounter [facility] 07-09-2022 Miscellaneous Notes Last Office Visit: 04/16/2022 Future Office Visit: 09/17/2022 Requested Prescriptions Pending Prescriptions Disp Refills dulaglutide (TRULICITY) 1.5 mg/0.5 mL pen injector 12 Each 3 Sig: Inject 1.5 mg subcutaneously one time a week. Inject once per week. Discard Pen After Date of Last Labs: 03/02/2022 documented in this encounter [facility] 07-03-2022 Note HNO ID: [id number] Author: Arminda Obregon Service: ? Author Type: [...] RTC in 3-4 months. Arminda Obregon DPM [facility] 07-03-2022 Note HNO ID: [id number] Author: Marcella Cox RN Service: ? Author Type: Registered Nurse Type: Progress Notes Filed: 07/03/2022 11:17 AM Note Text: Patient presents with: Left Foot - Established Patient, Follow Up, nail care Right Foot - Established Patient, Follow Up, nail care [facility] 07-02-2022 Note HNO ID: [id number] Author: Bobbi Garcia MD Service: ? Author Type: Physician Type: Progress Notes Filed: 07/02/2022 12:42 PM Note Text: [facility]IONAL CARDIOLOGY Cardiology ([facility]) [address] [id number] OUTPATIENT VISIT DATE 07/02/2022 PRIMARY CARE PHYSICIAN: Abdulaziz Caldera [address] [place] [address] HISTORY OF PRESENT ILLNESS: Mr. Roy is [...] Benign-Dr. 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 Dr. Obregon at [facility] COLONOSCOPY 10/10/2021 repeat in 3 years COLONOSCOPY [...] at bedtime.Disp: 3 (more content not included)... [facility] 06-25-2022 Miscellaneous Notes Last appt: 04/16/22 [...] Tania Heller LPN documented in this encounter [facility] 05-16-2022 Miscellaneous Notes Patient has been identified [...] Mila Castro LPN documented in this encounter [facility] 04-17-2022 History of Presen t illness Narrative [...] evaluation of folllow up after hospitalization in [facility]. he was admitted because of syncopal [...] others Since covid hit they went [facility] and was staying in the house by [...] closure on 05/28/18. Dr. Obregon at [facility] COLONOSCOPY 10/10/2021 repeat in 3 years COLONOSCOPY [...] week. Discard Pen After blood sugar diagnostic ([employer] ULTRA TEST) test strip Test blood sugar(s) [...] gait ,unsteady Cannot tandem Tamie Kaur M.D. [facility] Department of Neurology Total time in minutes [...] on at night. documented in this encounter [facility] 04-17-2022 Miscellaneous Notes Reviewed. Behavioral Health Social Work Progress Note Patient identified for [facility] from: PCP Reason for referral: Resources Behavioral Health Resources: Psychology - talk therapy [facility] encounter type: Telephone Encounter Attempts to Outreach: 1 attempt Referral made: Psychology - External Psychology-External referral type: Therapy Reason for external referral: Wait times at [facility] too long Final Disposition: Resources given Patient Discharged?: Yes Patient reported that caregiver was able to meet their needs today?: Yes SW placed a phone call to patient at the request of the PCP. Pt reported he is looking for talk therapy referrals at this time. SW provided the following referrals via phone: [facility] [address], [facility], [facility] [address] *[facility]ing [facility] [address] [address] *counseling [facility] [address], [address] [place] [address] *counseling [facility] [address] [place] [address] FEDERICO Zamudio April 17, 2022 documented in this encounter [facility] 04-16-2022 History of Presen t illness Narrative [...] (HCC) 09/08/2010 Diabetic retinopathy of right eye ([facility]) mild Diverticulosis of colon (without mention of [...] closure on 05/28/18. Dr. Obregon at [facility] COLONOSCOPY 10/10/2021 repeat in 3 years COLONOSCOPY [...] week. Discard Pen After blood sugar diagnostic ([employer] ULTRA TEST) test strip Test blood sugar(s) [...] Abs Lymph 1.00 - 4.00 k/uL 1.81 [place]% % 6.9 Abs [place] <0.87 k/uL 0.86 [place]% % 3.1 Abs [...] disease, with long-term current use of insulin ([facility]) - ICD9: 250.40, 585.3, V58.67, ICD10: E11.22, N18.31, Z79.4 (primary diagnosis) Controlled. - Continue current medications - Blood glucose monitoring on a 3 times a day schedule - Encouraged regular aerobic exercise and weight loss - Follow up in 6 months, sooner should any other issues arise. - Discussed diabetic education issues of clothing patternmaker diabetic complications, hypoglycemic symptoms, hyperglycemic symptoms, diet, [...] Abdulaziz Caldera MD documented in this encounter [facility] documented in this encounter [facility] History of Present illness Narrative* Roselia Madrigal, WEB PAGE DEVELOPER.SUPERINTENDENT DRILLING AND PRODUCTION - 04/06/2022 9:40 AM EDT 04/06/2022 Patient [...] Benign-Dr. 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 FOR CHOLESTEROL. blood sugar diagnostic ([employer] ULTRA TEST) test strip Test blood sugar(s) [...] SEASONAL QUADRIVALENT HIGH DOSE AGE 65+ - [employer] COVID-19 BIVALENT BOOSTER VACCINE, AGE 12+ YR [...] which included preparing to see the patient, [id number] patient care, completing clinical documentation, obtaining and/or reviewing separately obtained history, performing a medically appropriate examination, and counseling and educating the patient/family/caregiver. [facility] Miscellaneous Notes* Telephone Encounter - Valencia Pascual [...] AM EDT ----- Message from Roselia Madrigal APRN.SUPERINTENDENT DRILLING AND PRODUCTION sent at 04/03/2022 2:47 PM EDT ----- Please forward INR to doctor supervisor operations Roselia Madrigal APRN.SUPERINTENDENT DRILLING AND PRODUCTION documented in this encounter[facility] History of Present illness Narrative* Arminda Obregon [...] Care Merlene Martinez LPN documented in this [facility]-16-[facility]22 Instructions* Patient Instructions* Arminda Obregon - 03/30/2022 [...] (or decreased sensation in your feet) a track inspecting supervisor should always cut your toenails. Be Careful [...] Go to your health care provider or track inspecting supervisor to treat these conditions. [facility] History of Present illness Narrative* Rosa Elena [...] 01/12/22 through 03/15/22 Goals updated on 03/23/2022. [place] in home exercise program. (Met) Patient will [...] Rosa Elena Poon PT documented in this [facility]22 Miscellaneous Notes* Telephone Encounter - Maggy Ibarra Pss - 03/22/2022 1:49 PM EDT Pharmacy verified in [facility] Patient has been identified by name and [...] (246 lb) Not applicable Please advise. Maggy bIarra Pss documented in this encounterT[facility]22 History of Present illness Narrative* Rosa Elena [...] Treatment Time Minutes (timed/untimed): 40 Karen Weber, FLAGGER Rosa Elena Poon PT documented in this encounterT[facility]08-29-2022 History of Present illness Narrative* Rosa Elena [...] 41 ALISIA Whiting PT documented in this encounterT[facility]08-26-2022 Miscellaneous Notes* Addendum Note - Rosa Elena Poon PT - 03/09/2022 1:18 PM EDTAddended by: ROSA ELENA POON on: 03/09/2022 01:18 PM Modules accepted: Orders documented in this encounterTus[facility]08-26-2022 History of Present illness Narrative* Rosa Elena [...] 01/12/22 through 03/15/22 Goals updated on 03/09/2022. [place] in home exercise program. (Met) Patient will [...] Patient to be seen for Therapeutic exercise (93049);Neuromuscular re-education (04228);Gait Training (08223);Patient/Family/Caregiver Education PLAN FOR NEXT VISIT: Add bridging [...] Rosa Elena Lemon, PT documented in this encounterT[facility]08-24-2022 Miscellaneous Notes* Telephone Encounter - Amada Cohn [...] testing [place] Ma Cma documented in this encounterT[facility] Hospital08-24-2022 Instructions* Patient Instructions* Abdulaziz Caldera MD - 03/07/2022 11:45 AM EDT Please take 2,000 units of vitamin D daily over the counter. documented in this encounterT[facility]08-[facility]-2022 History of Present illness Narrative* Abdulaziz Caldera MD - 03/07/2022 11:19 AM EDT Chief Complaint Patient presents with: 6 Month Exam ER F/U HPI Richard Roy is a 76 year old male who presents here today for ER Follow Up.. Patient evaluated at [facility] ED on 03/02 for complaint of weakness [...] Benign-Dr. 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 Dr. Obregon at [facility] COLONOSCOPY 10/10/2021 repeat in 3 years COLONOSCOPY [...] ONCE DAILY. FOR CHOLESTEROL. blood sugar diagnostic ([employer] ULTRA TEST) test strip Test blood sugar(s) [...] Abs Lymph 1.00 - 4.00 k/uL 1.81 [place]% % 6.9 Abs [place] <0.87 k/uL 0.86 [place]% % 3.1 Abs [...] PANEL Abdulaziz Caldera MD documented in this encounterT[facility]08-[facility]22 History of Present illness Narrative* Rosa Elena [...] Rosa Elena Poon PT documented in this encounterTuscarawas Hospital08-19-2022 History of Present illness Narrative* Rosa Elena [...] Rosa Elena Poon PT documented in this encounterT[facility] Hospital08-15-2022 History of Present illness Narrative* Rosa Elena [...] Rosa Elena Poon PT documented in this encounterT[facility] Hospital08-12-2022 History of Present illness Narrative* Rosa Elena [...] 43 ALISIA Whiting PT documented in this encounterTuscarawas Hospital08-03-2022 History of Present illness Narrative* Rosa Elena [...] Rosa Elena Poon PT documented in this encounterTuscarawas Hospital07-29-2022 History of Present illness Narrative* Rosa Elena [...] OF CARE UPDATE: Assessment: Richard Roy demonstrates difficulty with walking in the [...] 01/12/22 through 03/15/22 Goals updated on 02/09/2022. [place] in home exercise program. (Met) Patient will [...] Patient to be seen for Therapeutic exercise (81792);Neuromuscular re-education (95219);Gait Training (55191);Patient/Family/Caregiver Education PLAN FOR NEXT VISIT: Continue to [...] Rosa Elena Poon PT documented in this encounterT[facility]07-26-2022 Miscellaneous Notes* Telephone Encounter - Nola Lockhart [...] patient. Nola Castro Pss documented in this encounterTuscarawas Hospital07-22-2022 History of Present illness Narrative* Cortney Levin [...] 43 ALISIA Whiting, PT documented in this encounterTuscarawas Hospital07-21-2022 Miscellaneous Notes* Telephone Encounter - Mila Castro [...] No need to notify patient. Eulalia Gaston [facility] documented in this encounterTuscarawas Hospital07-19-2022 History of Present illness Narrative* Justina Escoto, [...] 43 ALISIA Whiting PT documented in this encounterTuscarawas Hospital07-12-2022 Miscellaneous Notes* Telephone Encounter - Rebecca Gonzales [...] you. Rebecca Gonzales RN documented in this encounterTuscarawas Hospital07-12-2022 History of Present illness Narrative* Chiki Byrd, [...] 45 ALISIA Whiting PT documented in this encounterTuscarawas Hospital07-08-2022 Miscellaneous Notes* Telephone Encounter - Maggy Hubbard [...] on driving. Please advise. documented in this encounterTuscarawas Hospital07-01-2022 History of Present illness Narrative* Rosa Elena [...] of Care: created on 01/12/22 through 03/15/22 [place] in home exercise program. Patient will demonstrate [...] Planned: 16 Planned Treatment Interventions: Therapeutic exercise (15320);Neuromuscular re- education (32659);Gait Training (48462);Patient/Family/Caregiver Education PLAN FOR NEXT VISIT: Review HEP [...] Rosa Elena Poon PT documented in this encounterTuscaraw[facility] Hospital07-01-2022 Miscellaneous Notes* Telephone Encounter - Ewa Andino [...] may schedule at his convenience. Thanks, Roselia Madrigal APRN.CNP * Telephone Encounter - Eva Schmid [...] Pending consult. Please advise documented in this encounterTus[facility] Hospital06-29-2022 Miscellaneous Notes* Telephone Encounter - Mila Sharma [...] his syncope/collapse. Thank you! documented in this encounterTus[facility] Hospital06-29-2022 Miscellaneous Notes* Result QuickNote - Justina Hadley APRN.CNP - 01/10/2022 11:33 AM EDT Please call patient and notify him. Echocardiogram is stable. Valve replacement function is stable.No cardiac structure/function changes to explain his syncope/collapse. Thank you! documented in this encounterTus[facility] Hospital06-24-2022 History of Present illness Narrative* Tamie Kaur [...] medical record. REFERRING PHYSICIAN: Abdulaziz Caldera [address] [facility] [address] Accompanied by: Spouse ASSESSMENT: 76 year old [...] evaluation of folllow up after hospitalization in [facility]. he was admitted because of syncopal [...] others Since covid hit they went to [facility] and was staying in the house by [...] closure on 05/28/18. Dr. Obregon at [facility] COLONOSCOPY 10/10/2021 repeat in 3 years COLONOSCOPY [...] by mouth once daily. blood sugar diagnostic ([employer] ULTRA TEST) test strip Test blood sugar(s) [...] gait ,unsteady Cannot tandem Tamie Kaur M.D. [facility] Department of Neurology January 05, 2022 Total [...] lights on at night. documented in this encounterTuscarawas Hospital06-21-2022 Miscellaneous Notes* Telephone Encounter - Justina Martinez LPN - 01/02/2022 8:06 AM EDT I spoke to and informed him of Justina's response to lipid panel results. Patient voiced understanding. Justina Martinez LPN * Telephone Encounter - Justina Martinez LPN - 01/02/2022 7:43 AM EDT ----- Message from Justina Hadley APRN.SUPERINTENDENT DRILLING AND PRODUCTION sent at 01/02/2022 7:38 AM EDT ----- Please call patient and notify him cholesterol has good control. Thank you! documented in this encounterTuscarawas Hospital06-20-2022 History of Present illness Narrative* Abdulaziz Caldera MD - 01/01/2022 10:20 AM EDT Chief Complaint Patient presents with: Hospital Follow Up: [facility] discharged 12/29/21 HPI Richard Roy is a 76 year old male who presents here today for Hospital Discharge Follow up. Accompanied today by his . Patient admitted to [facility] from 12/27 to 12/29 after presenting to the [facility] ED after being found slumped over his tractor at home earlier in the afteernoon. Had been working outside for unknown period of time. Had only eaten cookies and milk that day. Heat index over 100. Back to baseline at the time of evaluation by hospitalist at [facility]. Found to have leukocytosis at [place] [facility] and elevated lactic acid level. Noted [...] since it was not completed at [facility]. No other changes to regimen. Patient incontinent [...] kidney disease, with long-term current use of insulin([facility]) 06/20/2016 Previous Surgical History PAST SURGICAL HISTORY Procedure Laterality Date ABDOMINAL SURGERY HX AMPUTATION METATARSAL+TOE,SINGLE Right 05/25/2018 with delayed closure on 05/28/18. Dr. Obregon at [facility] COLONOSCOPY 10/10/2021 repeat in 3 years COLONOSCOPY [...] by mouth once daily. blood sugar diagnostic ([employer] ULTRA TEST) test strip Test blood sugar(s) [...] SCRN Abdulaziz Caldera MD documented in this encounterTuscarawas Hospital06-20-2022 Instructions* Patient Instructions* Justina Hadley APRN.SUPERINTENDENT DRILLING AND PRODUCTION - 01/01/2022 9:05 AM EDT High Blood [...] risk for high blood pressure. Developed by [employer]. Published by [employer]. Copyright 2014 [employer] and/or one of its subsidiaries. All rights reserved. documented in this encounterTuscarawas Hospital06-20-2022 History of Present illness Narrative* Justina Hadley [...] amputation of first toe of right foot ([facility]) 05/25/2018 History of transfusion Hyperlipidemia LDL goal < 100 04/01/2012 Pulmonary embolus, right ([facility]) 09/25/2013 Status post aortic valve repair 2004 Thoracic aneurysm without mention of rupture Type 2 diabetes mellitus with stage 3 chronic kidney disease, with long-term current use of insulin([facility]) 06/20/2016 PAST SURGICAL HISTORY Procedure Laterality Date ABDOMINAL SURGERY HX AMPUTATION METATARSAL+TOE,SINGLE Right 05/25/2018 with delayed closure on 05/28/18. Dr. Obregon at [facility] COLONOSCOPY 10/10/2021 repeat in 3 years COLONOSCOPY [...] injection (DEFINITY) INTRAVENOUS DIRECTED PRN Justina Hadley, WEB PAGE DEVELOPER.SUPERINTENDENT DRILLING AND PRODUCTION sodium chloride 0.9 % (flush) 10 mL (BD POSIFLUSH) 10 mL INTRAVENOUS DIRECTED PRN Justina Hadley, WEB PAGE DEVELOPER.SUPERINTENDENT DRILLING AND PRODUCTION Review of Systems Constitutional: Negative for chills, [...] MRI of his head CAD -MILD on [facility] 2004 -stress testing 2013 with no obvious [...] 01, 2022, 8:57 AM documented in this encounterTuscarawas Hospital06-19-2022 Note. MICRO - Microbiology PROCEDURE: Blood Culture (bacterial) [*1] SOURCE: Blood BODY SITE: COLLECTED DATE/TIME: 12/27/2021 17:43 EDT RECEIVED DATE/TIME: 12/28/2021 14:37 EDT START DATE/TIME: 12/28/2021 14:37 EDT FREE TEXT SOURCE: FINAL REPORTS Final Report [] Verified Date/Time/Personnel: 12/31/2021 07:29 EDT Staphylococcus epidermidis Isolated from anaerobe bottle only. Refer to previous culture for susceptibility. [id number] PRELIMINARY REPORTS Preliminary Report [] Verified Date/Time/Personnel: 12/30/2021 09:39 EDT Staphylococcus epidermidis Isolated from anaerobe bottle only. Refer to previous culture for susceptibility. [id number] Preliminary Report [] Verified Date/Time/Personnel: 12/28/2021 15:59 EDT Culture has been received in lab and is no growth to date. Routine cultures are held for 5 days. STAINS GSANA [] Verified Date/Time/Personnel: 12/29/2021 14:08 EDT Gram Positive Cocci in clusters Performing Locations *1: This test was performed at: [facility], [address] [place] [address], [facility] , [facility] ([place])12-31-2021 Note. MICRO - Microbiology PROCEDURE: Blood Culture [...] Locations *1: This test was performed at: [facility], [address] [place] [address], [id number] , [facility] ([place])12-27-2021 SARS-CoV-2 (COVID-19) RNA ANGELY+probe Ql (Nph)Positive 2 *ABN* (12/27/21 5:43 PM)AO Auto Urine SSComment on above:Result Comment: positive covid cvrb s. tona Evaluation + Plan note Diagnostic Tests Pending * Urinalysis 12/27/21 * Blood Culture (bacterial) 12/27/21 * Blood Culture (bacterial) 12/27/21 [facility] 06-02-2022 History of Present illness Narrative* Abdulaziz Caldera MD - 12/14/2021 3:13 PM EDT Chief Complaint Patient presents with: Covid Follow Up HPI Richard Roy is a 76 year old male who presents here today for Above Complaints.. Patient positive for COVID in the [facility] ER last week on 12/06. Spoke with [...] Benign-Dr. 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 Dr. Obregon at [facility] COLONOSCOPY 10/10/2021 repeat in 3 years COLONOSCOPY [...] by mouth once daily. blood sugar diagnostic ([employer] ULTRA TEST) test strip Test blood sugar(s) [...] detail. Abdulaziz Caldera MD documented in this encounterTuscarawas Hospital05-27-2022 History of Present illness Narrative* Abdulaziz Caldera [...] for Above Complaints.. Patient evaluated at [facility] ER on 12/06 for complaint of generalized weakness, cough, and feeling off balance and developed cough which started on 12/04. Denied other COVID symptoms at that time. Lab workup in the ER was unremarkable aside from positive COVID test and INR of 3.3. UA unremarkable. CXR showed some ill defined densities in RLL which was likely 2/2 COVID infection. [place] to be well enough and discharged home [...] amputation of first toe of right foot ([facility]) 05/25/2018 History of transfusion Hyperlipidemia LDL goal < 100 04/01/2012 Pulmonary embolus, right ([facility]) 09/25/2013 Status post aortic valve repair 2005 Thoracic aneurysm without mention of rupture Type 2 diabetes mellitus with stage 3 chronic kidney disease, with long-term current use of insulin([facility]) 06/20/2016 Previous Surgical History PAST SURGICAL HISTORY Procedure Laterality Date ABDOMINAL SURGERY HX AMPUTATION METATARSAL+TOE,SINGLE Right 05/25/2018 with delayed closure on 05/28/18. Dr. Obregon at [facility] [place] COLONOSCOPY 10/10/2021 repeat in 3 years COLONOSCOPY [...] by mouth once daily. blood sugar diagnostic ([employer] ULTRA TEST) test strip Test blood sugar(s) [...] these interactions. Not interested in driving to [facility] for IV ab. Since his symptoms are mild, he would prefer to rest at home. Discussed risks and benefits of treatment and that he is high risk for severe infection. Red flags for re-assessment reviewed with patient in detail. I spent a total of 25 minutes on the date of the service which included preparing to see the patient, [id number] patient care, completing clinical documentation, obtaining and/or reviewing separately obtained history, performing a medically appropriate examination, counseling and educating the pat ient/family/caregiver and ordering medications, tests, or procedures. Abdulaziz Caldera MD documented in [facility] encounterT[facility]05-27-[facility]22 Miscellaneous Notes* Telephone Encounter - Abdulaziz Caldera [...] with one of our providers or with [facility] online. * Telephone Encounter - Rosa Elena Martinez Pss - 12/08/2021 2:16 PM EDT Patient called stating he was at [facility] [place] ER on 12/06. Tested positive for covid. Patient was informed tocontact the office within 5 days to inform. Please advise patient when he can be seen in office. documented in this encounterTuscaraw[facility] Hospital05-09-2022 Miscellaneous Notes* Telephone Encounter - Eulalia [facility] - 11/20/2021 9:49 AM EDT Patient has been identified by name and date of : Yes Pending Prescriptions Disp Refills METFORMIN ER 500 MG 24 HR TABLET,EXTENDED RELEASE Sig: Take 1 tablet by mouth daily with breakfast. NUHA: No OMAR-09/06/21 Labs-08/30/21 NOV-03/07/22 RX INSTRUCTIONS: Patient aware RX will be sent to pharmacy. No need to notify patient. Eulalia [facility] documented in this encounterTuscarawas Hospital04-11-2022 Instructions* Patient Instructions* Marcella Park PA-C - 10/23/2021 1:25 PM EDT -Recommend daily fiber supplement and plenty of fluids The following instructions are important for you related to your office visit today with the [facility] General Surgeons. INSTRUCTIONS FOR DIVERTICULA I recommend [...] you should contact our office immediately @ [phone] and ask to be transferred to the General Surgery department. The following instructions are important for you related to your office visit today with the [facility] General Surgeons. INSTRUCTIONS FOLLOWING A POLYP FOUND [...] you should contact our office immediately @ [phone] and ask to be transferred to the General Surgery department. documented in this encounterTuscarawas Hospital04-11-2022 History of Present illness Narrative* Marcella Park PA-C - 10/23/2021 1:09 PM EDT FOLLOW UP VISIT - ENDOSCOPY NAME: Richard Bonilla [facility] NO.: [id number] DATE OF SERVICE: 10/23/2021 : 1945 REFERRING [...] which included preparing to see the patient, [id number] patient care, completing clinical documentation, obtaining and/or reviewing separately obtained history, counseling and educating the patient/family/caregiver, communicating with other HCPs (not separately reported), independently interpreting results (not separately reported) and communicating results to the patient/family/caregiver. Marcella Park PA-C documented in this encounterTuscarawas Hospital03-29-2022 Nurse Note* Caroline Larkin RN - 10/10/2021 [...] answered. Caroline Larkin RN documented in this encounterTuscarawas Hospital03-29-2022 History and physical note * Ricahrd Jones MD - 10/10/2021 8:15 AM EDT [...] Benign-Dr. 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 Dr. Obregon at [facility] [place] COLONOSCOPY FLX DX W/COLLJ SPEC WHEN PFRMD [...] by mouth once daily. blood sugar diagnostic ([employer] ULTRA TEST) test strip Test blood sugar(s) [...] patient was offered a [facility]. 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 Patient aware RX will be sent to pharmacy. No need to notify patient. Violette Lockhart documented in this encounterTuscarawas Hospital03-23-2022 Miscellaneous Notes* Telephone Encounter - Nelson Hernandez [...] advise, Halima Diaz RN documented in this encounterTuscarawas Hospital02-02-2022 Miscellaneous Notes* Telephone Encounter - Garland Vicente - 08/16/2021 9:36 AM EST 10-10-2021 [facility] documented in this encounterTuscarawas Hospital01-13-2022 NoteHNO ID: [id number] Author: REY Burt Service: Radiology Author Type: Regulator Operator Type: Progress Notes Filed: 07/27/2021 10:50 AM [...] Roy DATE: July 27, 2021 TIME: 10:49 [id number] History of Past illness Narrative* Problem Noted [...] of this encounter (statuses as of 10/04/2021) [facility] of [facility] Narrative* Problem Noted [...] of this encounter (statuses as of 10/05/2021) [facility] Narrative* Problem Noted [...] of this encounter (statuses as of 10/11/2021) [facility] Narrative* Problem Noted [...] of this encounter (statuses as of 10/16/2021) [facility] Narrative* Problem Noted [...] of this encounter (statuses as of 10/27/2021) [facility] Narrative* Problem Noted [...] of this encounter (statuses as of 11/20/2021) [facility] Narrative* Problem Noted [...] of this encounter (statuses as of 12/12/2021) [facility] Narrative* Problem Noted [...] of this encounter (statuses as of 12/13/2021) [facility] Narrative* Problem Noted [...] of this encounter (statuses as of 12/14/2021) [facility] N[facility]ative* Problem Noted [...] of this encounter (statuses as of 01/01/2022) [facility] Narrative* Problem Noted [...] of this encounter (statuses as of 01/02/2022) [facility] N[facility]ative* Problem Noted [...] of this encounter (statuses as of 01/02/2022) [facility] N[facility]ative* Problem Noted [...] of this encounter (statuses as of 01/06/2022) [facility] N[facility]ative* Problem Noted [...] of this encounter (statuses as of 01/10/2022) [facility] N[facility]* Problem Noted [...] of this encounter (statuses as of 01/11/2022) [facility] N[facility]* Problem Noted [...] of this encounter (statuses as of 01/12/2022) [facility] N[facility]ative* Problem Noted [...] of this encounter (statuses as of 01/12/2022) [facility] N[facility]* Problem Noted [...] of this encounter (statuses as of 01/19/2022) [facility] N[facility]* Problem Noted [...] of this encounter (statuses as of 01/23/2022) [facility] N[facility]* Problem Noted [...] of this encounter (statuses as of 01/25/2022) [facility]* Problem Noted [...] of this encounter (statuses as of 01/30/2022) [facility]* Problem Noted [...] of this encounter (statuses as of 02/01/2022) [facility]* Problem Noted [...] of this encounter (statuses as of 02/02/2022) [facility]* Problem Noted [...] of this encounter (statuses as of 02/02/2022) [facility]* Problem Noted [...] of this encounter (statuses as of 02/06/2022) [facility]* Problem Noted [...] of this encounter (statuses as of 02/09/2022) [facility]* Problem Noted [...] of this encounter (statuses as of 02/14/2022) [facility]* Problem Noted [...] of this encounter (statuses as of 02/26/2022) [facility]* Problem Noted [...] of this encounter (statuses as of 03/02/2022) [facility]* Problem Noted [...] of this encounter (statuses as of 03/05/2022) [facility]* Problem Noted [...] of this encounter (statuses as of 03/07/2022) [facility]* Problem Noted [...] of this encounter (statuses as of 03/08/2022) [facility]* Problem Noted [...] of this encounter (statuses as of 03/09/2022) [facility]* Problem Noted [...] of this encounter (statuses as of 03/12/2022) [facility]* Problem Noted [...] of this encounter (statuses as of 03/16/2022) [facility]* Problem Noted [...] of this encounter (statuses as of 03/23/2022) [facility]* Problem Noted [...] of this encounter (statuses as of 04/03/2022) [facility]* Problem Noted [...] of this encounter (statuses as of 04/04/2022) [facility]* Problem Noted [...] of this encounter (statuses as of 04/06/2022) [facility]* Problem Noted [...] of this encounter (statuses as of 04/17/2022) [facility]* Problem Noted [...] of this encounter (statuses as of 04/17/2022) [facility] Problem Noted [...] of this encounter (statuses as of 04/19/2022) [facility]* Problem Noted [...] of this encounter (statuses as of 05/16/2022) [facility] Problem Noted [...] of this encounter (statuses as of 06/25/2022) [facility] Problem Noted [...] of this encounter (statuses as of 07/14/2022) [facility] Problem Noted [...] of this encounter (statuses as of 07/15/2022) [facility] Problem Noted [...] of this encounter (statuses as of 07/18/2022) [facility]* Problem Noted [...] of this encounter (statuses as of 07/18/2022) [facility]* Problem Noted [...] of this encounter (statuses as of 07/19/2022) [facility]* Problem Noted [...] of this encounter (statuses as of 07/20/2022) [facility]* Problem Noted [...] of this encounter (statuses as of 07/25/2022) [facility]* Problem Noted [...] of this encounter (statuses as of 07/26/2022) [facility]* Problem Noted [...] of this encounter (statuses as of 07/27/2022) [facility]* Problem Noted [...] of this encounter (statuses as of 07/31/2022) [facility]* Problem Noted [...] of this encounter (statuses as of 08/06/2022) [facility] Problem Noted [...] of this encounter (statuses as of 08/07/2022) [address] History of Past illness Narrative* Problem [...] of this encounter (statuses as of 08/09/2022) [address] History of Past illness Narrative* Problem [...] of this encounter (statuses as of 08/14/2022) [facility] Problem Noted [...] of this encounter (statuses as of 08/16/2022) [facility] Problem Noted [...] of this encounter (statuses as of 08/28/2022) [facility] Problem Noted [...] of this encounter (statuses as of 09/07/2022) [facility] Problem Noted [...] of this encounter (statuses as of 09/09/2022) [facility] Problem Noted [...] of this encounter (statuses as of 09/25/2022) [facility] Problem Noted [...] of this encounter (statuses as of 10/23/2022) [facility] Problem Noted [...] of this encounter (statuses as of 11/20/2022) [facility] Problem Noted [...] of this encounter (statuses as of 11/20/2022) [facility] Problem Noted [...] of this encounter (statuses as of 12/13/2022) [facility] Problem Noted [...] of this encounter (statuses as of 12/14/2022) [facility] Problem Noted [...] of this encounter (statuses as of 12/18/2022) [facility] Problem Noted [...] of this encounter (statuses as of 12/25/2022) [facility] Problem Noted [...] of this encounter (statuses as of 12/27/2022) [facility] Problem Noted [...] of this encounter (statuses as of 12/31/2022) [facility] Problem Noted [...] of this encounter (statuses as of 01/03/2023) [facility] Problem Noted [...] of this encounter (statuses as of 01/04/2023) [facility] Problem Noted [...] of this encounter (statuses as of 01/04/2023) [facility] Problem Noted [...] of this encounter (statuses as of 01/25/2023) [facility]* Problem Noted [...] of this encounter (statuses as of 01/29/2023) [facility] note* Diagnosis Type 2 diabetes mellitus with diabetic neuropathy, with long-term current use of insulin (HCC) Status post aortic valve repair Other postprocedural status Chronic anticoagulation Long-term (current) use of anticoagulants [facility] Diagnosis Colon cancer screening Special screening [...] Diagnosis COVID-19- Primary [facility] Diagnosis Hyperlipidemia with target LDL less than 100- Primary Other and unspecified hyperlipidemia Primary hypertension Unspecified essential hypertension Thoracic aortic aneurysm without rupture (HCC) Thoracic aneurysm without mention of rupture Coronary artery disease involving [place] coronary artery of [place] heart without angina pectoris Syncope, unspecified syncope type Obesity, Class II, BMI 35-39.9 Obesity, unspecified [facility]* Diagnosis Syncope and collapse- Primary Altered mental status, unspecified altered mental status type Urinary incontinence, unspecified type Benign prostatic hyperplasia with nocturia Nocturia Vitamin D deficiency, unspecified Wound of left lower extremity, initial encounter Encounter for screening for malignant neoplasm of prostate Special screening for malignant neoplasm of prostate [facility] Diagnosis Abnormality of gait due to impairment of balance- Primary Altered mental status, unspecified altered mental status type [facility]* Diagnosis Chronic anticoagulation Long-term (current) use of anticoagulants Thoracic aortic aneurysm without rupture (HCC) Thoracic aneurysm without mention of rupture Status post aortic valve repair Other postprocedural status [facility]* Diagnosis Type 2 diabetes mellitus with diabetic neuropathy, with long-term current use of insulin (HCC)- Primary [facility] Diagnosis Abnormality of gait due [...] vitamin D deficiency [facility]* Diagnosis Type 2 diabetes mellitus with stage 3 chronic kidney disease, with long-term current use of insulin (HCC) [facility] Diagnosis Abnormality of gait due to impairment of balance- Primary [facility]* Diagnosis Type 2 diabetes mellitus with diabetic neuropathy, with long-term current use of insulin ([facility]) [facility] Diagnosis Abnormality of gait due [...] Abnormal coagulation profile ANTHONY (acute kidney injury) ([facility]) Acute kidney failure, unspecified [facility] Diagnosis Abnormality of gait due [...] polyneuropathy associated with type 2 diabetes mellitus ([facility]) [facility] Diagnosis Generalized weakness- Primary Other malaise and fatigue Encounter for immunization Need for other specified prophylactic vaccination against single bacterial disease Mild depression Depressive disorder, not elsewhere classified [facility] Diagnosis Generalized anxiety disorder- Primary [...] mellitus (HCC) NSTEMI (non-ST elevated myocardial infarction) ([facility]) Acute myocardial infarction, subendocardial infarction, episode of [...] disease, with long-term current use of insulin ([facility]) 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, macular edema presence unspecified ([facility]) [facility] Diagnosis Driving safety issue- Primary Other specified personal history presenting hazards to health [facility] Diagnosis Onychomycosis- Primary Dermatophytosis of nail Pain in toe of left foot Pain in limb Amputated toe of right foot ([facility]) Diabetic polyneuropathy associated with type 2 diabetes mellitus ([facility]) [facility] Diagnosis Spinal stenosis, lumbar region, without neurogenic claudication- Primary Primary osteoarthritis of both knees Primary localized osteoarthrosis, lower leg [facility] Diagnosis Spinal stenosis, lumbar region, without neurogenic claudication- Primary Primary osteoarthritis of both knees Primary localized osteoarthrosis, lower leg [facility] Diagnosis Spinal stenosis, lumbar region, without neurogenic claudication- Primary Primary osteoarthritis of both knees Primary localized osteoarthrosis, lower leg [facility] Diagnosis Spinal stenosis, lumbar region, without neurogenic claudication- Primary Primary osteoarthritis of both knees Primary localized osteoarthrosis, lower leg [facility] Diagnosis Spinal stenosis, lumbar region, without neurogenic claudication- Primary Primary osteoarthritis of both knees Primary localized osteoarthrosis, lower leg [facility] Diagnosis Spinal stenosis, lumbar region, without neurogenic claudication- Primary Primary osteoarthritis of both knees Primary localized osteoarthrosis, lower leg [facility] Narrative No data available for this section [facility] Discharge instructions No data available for this section [facility] Progress note No data available for this section [facility] Reason for referral (narrative)* Outpatient Procedure (Routine) - Closed Specialty Diagnoses / Procedures Referred By Contac t Referred To Contact [facility] Diagnoses Colon cancer screening Procedures COLONOSCOPY SCREENING COLONOSCOPY FLX DX W/COLLJ SPEC WHEN PFMarcella Cho PA-C [address] [place] [address] [facility] [address] [id number] Referral ID Status Reason Start Date Expiration Date V isits Requested Visits Authorized [id number] Closed Auto-Generate d Referral 08/16/2021 08/16/2022 1 1 [facility] for referral (narrative)* Outpatient Procedure (Routine) - Closed Specialty Diagnoses / Procedures Referred By Contac t Referred To Contact [facility] Diagnoses Colon cancer screening Procedures COLONOSCOPY SCREENING COLONOSCOPY FLX DX W/COLLJ SPEC WHEN Marcella Alatorre PA-C [address] [place] [address] [facility] [address] [place] [id number] Referral ID Status Reason Start Date Expiration Date V isits Requested Visits Authorized [id number] Closed Auto-Generate d Referral 08/16/2021 08/16/2022 1 1 [facility] for visit Narrative* Outpatient Procedure (Routine) - Closed Specialty Diagnoses / Procedures Referred By Contac t Referred To Contact [facility] Diagnoses Colon cancer screening Procedures COLONOSCOPY SCREENING COLONOSCOPY FLX DX W/COLLJ SPEC WHEN PFMarcella Cho PA-C [address] [place] [address] [facility] [address] [place] [id number] Referral ID Status Reason Start Date Expiration Date V isits Requested Visits Authorized [id number] Closed Auto-Generate d Referral 08/16/2021 08/16/2022 1 1 [facility] N[facility]ative* Outpatient Procedure (Routine) - Closed Specialty Diagnoses / Procedures Referred By Linn carrillo Referred To [facility] Diagnoses Chronic anticoagulation Thoracic aortic aneurysm without rupture (HCC) Status post aortic valve repair Procedures ECHO TTE W/DOPPLER, COMPLETE Justina Hadley, WEB PAGE DEVELOPER.[employer]PERINT[employer] [address] [place] [address] [facility] [address] [address] Referral ID Status Reason Start Date Expiration Date V isits Requested Visits Authorized [id number] Closed Auto-Generate d Referral 07/03/2021 07/03/2022 1 1 [facility] Advance Directives No Advanced Directives Records FoundDocuments on File Type Date Recorded Patient Anatomical Embalmer Expl anation Advance Directive(s) 09/12/2021 7:14 AM Documents on File Type Date Recorded Patient Anatomical Embalmer Expl anation Advance Directive(s) 09/12/2021 7:14 AM [...] Diagnoses Driving safety issue Procedures CONSULT TO HEAD OF PRODUCT OCCUPATIONAL THERAPY EVAL HIGH COMPLEX 60 MINS Tamie Kaur MD [address] [place] [address] [facility] [place] [address] [place] [id number] Referral ID Status Reason Start Date Expiration Date Visits Requested Visits Authorized [id number] Authorized PCP Requested Referral Auto-Generate d Referral 09/07/2022 09/07/2023 99 99 Specialty Diagnoses / Procedures Referred By Contac t Referred To Contact [facility] Diagnoses Polyneuropathy Procedures CONSULT TO PHYSICAL THERAPY PHYSICAL THERAPY EVALUATION HIGH COMPLEX 45 MINS Tamie Kaur MD [address] [place] [address] [facility] [address] [address] Referral ID Status Reason Start Date Expiration Date Visits Requested Visits Authorized [id number] Authorized PCP Requested Referral Auto-Generate d Referral 04/17/2022 04/17/2023 99 99 Specialty Diagnoses / Procedures Referred By Contac t Referred To Contact Psychology Diagnoses Generalized anxiety disorder Procedures CONSULT TO PSYCHOLOGY OFFICE/OUTPATIENT [facility] 60-74 MINUTES Tamie Kaur MD [address] [place] [id number] Referral ID Status Reason Start Date Expiration Date Visits Requested Visits Authorized [id number] Pending Review PCP Requested Referral 04/17/2022 04/17/2023 1 1 Specialty Diagnoses / Procedures Referred By Contac t Referred To Contact Podiatry Diagnoses Type 2 diabetes mellitus with diabetic neuropathy, with long-term current use of insulin (HCC) Procedures CONSULT TO PODIATRY OFFICE/OUTPATIENT [facility] 60-74 MINUTES PodlogRoselia hernandez APRN.SUPERINTENDENT [employer]ODUCTION [address] [place] [address] Referral ID Status Reason Start Date Expiration Date Visits Requested Visits Authorized [id number] Authorized PCP Requested Referral 01/12/2022 01/11/2023 1 1 Specialty Diagnoses / Procedures Referred By Contac t Referred To Contact [facility] Diagnoses Altered mental status, unspecified altered mental status type Procedures CONSULT TO SPEECH THERAPY OFFICE/OUTPATIENT [facility] 60-74 MINUTES Tamie Kaur MD [address] [place] [address] [facility] [address] [address] Referral ID Status Reason Start Date Expiration Date Visits Requested Visits Authorized [id number] Authorized Auto-Generat ed Referral 01/05/2022 01/05/2023 99 99 Specialty Diagnoses / Procedures Referred By Contac t Referred To Contact [facility] Diagnoses Abnormality of gait due to impairment of balance Procedures CONSULT TO PHYSICAL THERAPY PHYSICAL THERAPY EVALUATION HIGH COMPLEX 45 MINS Tamie Kaur MD [address] [place] [address] [facility] [place] [address] Referral ID Status Reason Start Date Expiration Date Visits Requested Visits Authorized [id number] Authorized PCP Requested Referral Auto-Generate d Referral 01/05/2022 01/05/2023 99 99 Specialty Diagnoses / Procedures Referred By Contac t Referred To Contact [facility] Diagnoses Altered mental status, unspecified altered mental status type Procedures EPIL EEG ROUTINE ELECTROENCEPHALOGRAM REC COMA/SLEEP ONLY Tamie Kaur MD [address] [place] [address] [place] [address] Referral ID Status Reason Start Date Expiration Date Visits Requested Visits Authorized [id number] Authorized Auto-Generat ed Referral 01/05/2022 01/05/2023 1 1 Specialty Diagnoses / Procedures Referred By Contac t Referred To Contact Neurology Diagnoses Altered mental status, unspecified altered mental status type Procedures CONSULT TO NEUROLOGY OFFICE/OUTPATIENT [facility] MDM 60-74 MINUTES Abdulaziz Caldera MD [address] [place] [address] Referral ID Status Reason Start Date Expiration Date Visits Requested Visits Authorized [id number] Authorized PCP Requested Referral 01/01/2022 01/01/2023 1 [...] or prosecute any alcohol or drug abuse patient.[facility] HospitalIn the event this information is protected by the Federal Confidentiality of Alcohol and Drug Abuse Patient Records regulations: The Federal rules restrict any use of the information to criminally investigate or prosecute any alcohol or drug abuse patient.[facility] HospitalIn the event this information is protected by the Federal Confidentiality of Alcohol and Drug Abuse Patient Records regulations: The Federal rules restrict any use of the information to criminally investigate or prosecute any alcohol or drug abuse patient.[facility] HospitalIn the event this information is protected by the Federal Confidentiality of Alcohol and Drug Abuse Patient Records regulations: The Federal rules restrict any use of the information to criminally investigate or prosecute any alcohol or drug abuse patient.[facility] HospitalIn the event this information is protected by the Federal Confidentiality of Alcohol and Drug Abuse Patient Records regulations: The Federal rules restrict any use of the information to criminally investigate or prosecute any alcohol or drug abuse patient.[facility] HospitalIn the event this information is protected by the Federal Confidentiality of Alcohol and Drug Abuse Patient Records regulations: The Federal rules restrict any use of the information to criminally investigate or prosecute any alcohol or drug abuse patient.[facility] HospitalIn the event this information is protected by the Federal Confidentiality of Alcohol and Drug Abuse Patient Records regulations: The Federal rules restrict any use of the information to criminally investigate or prosecute any alcohol or drug abuse patient.[facility] HospitalIn the event this information is protected by the Federal Confidentiality of Alcohol and Drug Abuse Patient Records regulations: The Federal rules restrict any use of the information to criminally investigate or prosecute any alcohol or drug abuse patient.[facility] HospitalIn the event this information is protected by the Federal Confidentiality of Alcohol and Drug Abuse Patient Records regulations: The Federal rules restrict any use of the information to criminally investigate or prosecute any alcohol or drug abuse patient.[facility] HospitalIn the event this information is protected by the Federal Confidentiality of Alcohol and Drug Abuse Patient Records regulations: The Federal rules restrict any use of the information to criminally investigate or prosecute any alcohol or drug abuse patient.[facility] HospitalIn the event this information is protected by the Federal Confidentiality of Alcohol and Drug Abuse Patient Records regulations: The Federal rules restrict any use of the information to criminally investigate or prosecute any alcohol or drug abuse patient.[facility] HospitalIn the event this information is protected by the Federal Confidentiality of Alcohol and Drug Abuse Patient Records regulations: The Federal rules restrict any use of the information to criminally investigate or prosecute any alcohol or drug abuse patient.[facility] HospitalIn the event this information is protected by the Federal Confidentiality of Alcohol and Drug Abuse Patient Records regulations: The Federal rules restrict any use of the information to criminally investigate or prosecute any alcohol or drug abuse patient.[facility] HospitalIn the event this information is protected by the Federal Confidentiality of Alcohol and Drug Abuse Patient Records regulations: The Federal rules restrict any use of the information to criminally investigate or prosecute any alcohol or drug abuse patient.[facility] HospitalIn the event this information is protected by the Federal Confidentiality of Alcohol and Drug Abuse Patient Records regulations: The Federal rules restrict any use of the information to criminally investigate or prosecute any alcohol or drug abuse patient.[facility] HospitalIn the event this information is protected by the Federal Confidentiality of Alcohol and Drug Abuse Patient Records regulations: The Federal rules restrict any use of the information to criminally investigate or prosecute any alcohol or drug abuse patient.[facility] HospitalIn the event this information is protected by the Federal Confidentiality of Alcohol and Drug Abuse Patient Records regulations: The Federal rules restrict any use of the information to criminally investigate or prosecute any alcohol or drug abuse patient.[facility] HospitalIn the event this information is protected by the Federal Confidentiality of Alcohol and Drug Abuse Patient Records regulations: The Federal rules restrict any use of the information to criminally investigate or prosecute any alcohol or drug abuse patient.[facility] HospitalIn the event this information is protected by the Federal Confidentiality of Alcohol and Drug Abuse Patient Records regulations: The Federal rules restrict any use of the information to criminally investigate or prosecute any alcohol or drug abuse patient.[facility] HospitalIn the event this information is protected by the Federal Confidentiality of Alcohol and Drug Abuse Patient Records regulations: The Federal rules restrict any use of the information to criminally investigate or prosecute any alcohol or drug abuse patient.[facility] HospitalIn the event this information is protected by the Federal Confidentiality of Alcohol and Drug Abuse Patient Records regulations: The Federal rules restrict any use of the information to criminally investigate or prosecute any alcohol or drug abuse patient.[facility] HospitalIn the event this information is protected by the Federal Confidentiality of Alcohol and Drug Abuse Patient Records regulations: The Federal rules restrict any use of the information to criminally investigate or prosecute any alcohol or drug abuse patient.[facility] HospitalIn the event this information is protected by the Federal Confidentiality of Alcohol and Drug Abuse Patient Records regulations: The Federal rules restrict any use of the information to criminally investigate or prosecute any alcohol or drug abuse patient.[facility] HospitalIn the event this information is protected by the Federal Confidentiality of Alcohol and Drug Abuse Patient Records regulations: The Federal rules restrict any use of the information to criminally investigate or prosecute any alcohol or drug abuse patient.[facility] HospitalIn the event this information is protected by the Federal Confidentiality of Alcohol and Drug Abuse Patient Records regulations: The Federal rules restrict any use of the information to criminally investigate or prosecute any alcohol or drug abuse patient.[facility] HospitalIn the event this information is protected by the Federal Confidentiality of Alcohol and Drug Abuse Patient Records regulations: The Federal rules restrict any use of the information to criminally investigate or prosecute any alcohol or drug abuse patient.[facility] HospitalIn the event this information is protected by the Federal Confidentiality of Alcohol and Drug Abuse Patient Records regulations: The Federal rules restrict any use of the information to criminally investigate or prosecute any alcohol or drug abuse patient.[facility] HospitalIn the event this information is protected by the Federal Confidentiality of Alcohol and Drug Abuse Patient Records regulations: The Federal rules restrict any use of the information to criminally investigate or prosecute any alcohol or drug abuse patient.[facility] HospitalIn the event this information is protected by the Federal Confidentiality of Alcohol and Drug Abuse Patient Records regulations: The Federal rules restrict any use of the information to criminally investigate or prosecute any alcohol or drug abuse patient.[facility] HospitalIn the event this information is protected by the Federal Confidentiality of Alcohol and Drug Abuse Patient Records regulations: The Federal rules restrict any use of the information to criminally investigate or prosecute any alcohol or drug abuse patient.[facility] HospitalIn the event this information is protected by the Federal Confidentiality of Alcohol and Drug Abuse Patient Records regulations: The Federal rules restrict any use of the information to criminally investigate or prosecute any alcohol or drug abuse patient.[facility] HospitalIn the event this information is protected by the Federal Confidentiality of Alcohol and Drug Abuse Patient Records regulations: The Federal rules restrict any use of the information to criminally investigate or prosecute any alcohol or drug abuse patient.[facility] HospitalIn the event this information is protected by the Federal Confidentiality of Alcohol and Drug Abuse Patient Records regulations: The Federal rules restrict any use of the information to criminally investigate or prosecute any alcohol or drug abuse patient.[facility] HospitalIn the event this information is protected by the Federal Confidentiality of Alcohol and Drug Abuse Patient Records regulations: The Federal rules restrict any use of the information to criminally investigate or prosecute any alcohol or drug abuse patient.[facility] HospitalIn the event this information is protected by the Federal Confidentiality of Alcohol and Drug Abuse Patient Records regulations: The Federal rules restrict any use of the information to criminally investigate or prosecute any alcohol or drug abuse patient.[facility] HospitalIn the event this information is protected by the Federal Confidentiality of Alcohol and Drug Abuse Patient Records regulations: The Federal rules restrict any use of the information to criminally investigate or prosecute any alcohol or drug abuse patient.[facility] HospitalIn the event this information is protected by the Federal Confidentiality of Alcohol and Drug Abuse Patient Records regulations: The Federal rules restrict any use of the information to criminally investigate or prosecute any alcohol or drug abuse patient.[facility] HospitalIn the event this information is protected by the Federal Confidentiality of Alcohol and Drug Abuse Patient Records regulations: The Federal rules restrict any use of the information to criminally investigate or prosecute any alcohol or drug abuse patient.[facility] HospitalIn the event this information is protected by the Federal Confidentiality of Alcohol and Drug Abuse Patient Records regulations: The Federal rules restrict any use of the information to criminally investigate or prosecute any alcohol or drug abuse patient.[facility] HospitalIn the event this information is protected by the Federal Confidentiality of Alcohol and Drug Abuse Patient Records regulations: The Federal rules restrict any use of the information to criminally investigate or prosecute any alcohol or drug abuse patient.[facility] HospitalIn the event this information is protected by the Federal Confidentiality of Alcohol and Drug Abuse Patient Records regulations: The Federal rules restrict any use of the information to criminally investigate or prosecute any alcohol or drug abuse patient.[facility] HospitalIn the event this information is protected by the Federal Confidentiality of Alcohol and Drug Abuse Patient Records regulations: The Federal rules restrict any use of the information to criminally investigate or prosecute any alcohol or drug abuse patient.[facility] HospitalIn the event this information is protected by the Federal Confidentiality of Alcohol and Drug Abuse Patient Records regulations: The Federal rules restrict any use of the information to criminally investigate or prosecute any alcohol or drug abuse patient.[facility] HospitalIn the event this information is protected by the Federal Confidentiality of Alcohol and Drug Abuse Patient Records regulations: The Federal rules restrict any use of the information to criminally investigate or prosecute any alcohol or drug abuse patient.[facility] HospitalIn the event this information is protected by the Federal Confidentiality of Alcohol and Drug Abuse Patient Records regulations: The Federal rules restrict any use of the information to criminally investigate or prosecute any alcohol or drug abuse patient.[facility] HospitalIn the event this information is protected by the Federal Confidentiality of Alcohol and Drug Abuse Patient Records regulations: The Federal rules restrict any use of the information to criminally investigate or prosecute any alcohol or drug abuse patient.[facility] HospitalIn the event this information is protected by the Federal Confidentiality of Alcohol and Drug Abuse Patient Records regulations: The Federal rules restrict any use of the information to criminally investigate or prosecute any alcohol or drug abuse patient.[facility] HospitalIn the event this information is protected by the Federal Confidentiality of Alcohol and Drug Abuse Patient Records regulations: The Federal rules restrict any use of the information to criminally investigate or prosecute any alcohol or drug abuse patient.[facility] HospitalIn the event this information is protected by the Federal Confidentiality of Alcohol and Drug Abuse Patient Records regulations: The Federal rules restrict any use of the information to criminally investigate or prosecute any alcohol or drug abuse patient.[facility] HospitalIn the event this information is protected by the Federal Confidentiality of Alcohol and Drug Abuse Patient Records regulations: The Federal rules restrict any use of the information to criminally investigate or prosecute any alcohol or drug abuse patient.[facility] HospitalIn the event this information is protected by the Federal Confidentiality of Alcohol and Drug Abuse Patient Records regulations: The Federal rules restrict any use of the information to criminally investigate or prosecute any alcohol or drug abuse patient.[facility] HospitalIn the event this information is protected by the Federal Confidentiality of Alcohol and Drug Abuse Patient Records regulations: The Federal rules restrict any use of the information to criminally investigate or prosecute any alcohol or drug abuse patient.[facility] HospitalIn the event this information is protected by the Federal Confidentiality of Alcohol and Drug Abuse Patient Records regulations: The Federal rules restrict any use of the information to criminally investigate or prosecute any alcohol or drug abuse patient.[facility] HospitalIn the event this information is protected by the Federal Confidentiality of Alcohol and Drug Abuse Patient Records regulations: The Federal rules restrict any use of the information to criminally investigate or prosecute any alcohol or drug abuse patient.[facility] HospitalIn the event this information is protected by the Federal Confidentiality of Alcohol and Drug Abuse Patient Records regulations: The Federal rules restrict any use of the information to criminally investigate or prosecute any alcohol or drug abuse patient.[facility] HospitalIn the event this information is protected by the Federal Confidentiality of Alcohol and Drug Abuse Patient Records regulations: The Federal rules restrict any use of the information to criminally investigate or prosecute any alcohol or drug abuse patient.[facility] HospitalIn the event this information is protected by the Federal Confidentiality of Alcohol and Drug Abuse Patient Records regulations: The Federal rules restrict any use of the information to criminally investigate or prosecute any alcohol or drug abuse patient.[facility] HospitalIn the event this information is protected by the Federal Confidentiality of Alcohol and Drug Abuse Patient Records regulations: The Federal rules restrict any use of the information to criminally investigate or prosecute any alcohol or drug abuse patient.[facility] HospitalIn the event this information is protected by the Federal Confidentiality of Alcohol and Drug Abuse Patient Records regulations: The Federal rules restrict any use of the information to criminally investigate or prosecute any alcohol or drug abuse patient.[facility] HospitalIn the event this information is protected by the Federal Confidentiality of Alcohol and Drug Abuse Patient Records regulations: The Federal rules restrict any use of the information to criminally investigate or prosecute any alcohol or drug abuse patient.[facility] HospitalIn the event this information is protected by the Federal Confidentiality of Alcohol and Drug Abuse Patient Records regulations: The Federal rules restrict any use of the information to criminally investigate or prosecute any alcohol or drug abuse patient.[facility] HospitalIn the event this information is protected by the Federal Confidentiality of Alcohol and Drug Abuse Patient Records regulations: The Federal rules restrict any use of the information to criminally investigate or prosecute any alcohol or drug abuse patient.[facility] HospitalIn the event this information is protected by the Federal Confidentiality of Alcohol and Drug Abuse Patient Records regulations: The Federal rules restrict any use of the information to criminally investigate or prosecute any alcohol or drug abuse patient.[facility] HospitalIn the event this information is protected by the Federal Confidentiality of Alcohol and Drug Abuse Patient Records regulations: The Federal rules restrict any use of the information to criminally investigate or prosecute any alcohol or drug abuse patient.[facility] HospitalIn the event this information is protected by the Federal Confidentiality of Alcohol and Drug Abuse Patient Records regulations: The Federal rules restrict any use of the information to criminally investigate or prosecute any alcohol or drug abuse patient.[facility] HospitalIn the event this information is protected by the Federal Confidentiality of Alcohol and Drug Abuse Patient Records regulations: The Federal rules restrict any use of the information to criminally investigate or prosecute any alcohol or drug abuse patient.[facility] HospitalIn the event this information is protected by the Federal Confidentiality of Alcohol and Drug Abuse Patient Records regulations: The Federal rules restrict any use of the information to criminally investigate or prosecute any alcohol or drug abuse patient.[facility] HospitalIn the event this information is protected by the Federal Confidentiality of Alcohol and Drug Abuse Patient Records regulations: The Federal rules restrict any use of the information to criminally investigate or prosecute any alcohol or drug abuse patient.[facility] HospitalIn the event this information is protected by the Federal Confidentiality of Alcohol and Drug Abuse Patient Records regulations: The Federal rules restrict any use of the information to criminally investigate or prosecute any alcohol or drug abuse patient.[facility] HospitalIn the event this information is protected by the Federal Confidentiality of Alcohol and Drug Abuse Patient Records regulations: The Federal rules restrict any use of the information to criminally investigate or prosecute any alcohol or drug abuse patient.[facility] HospitalIn the event this information is protected by the Federal Confidentiality of Alcohol and Drug Abuse Patient Records regulations: The Federal rules restrict any use of the information to criminally investigate or prosecute any alcohol or drug abuse patient.[facility] HospitalIn the event this information is protected by the Federal Confidentiality of Alcohol and Drug Abuse Patient Records regulations: The Federal rules restrict any use of the information to criminally investigate or prosecute any alcohol or drug abuse patient.[facility] HospitalIn the event this information is protected by the Federal Confidentiality of Alcohol and Drug Abuse Patient Records regulations: The Federal rules restrict any use of the information to criminally investigate or prosecute any alcohol or drug abuse patient.[facility] HospitalIn the event this information is protected by the Federal Confidentiality of Alcohol and Drug Abuse Patient Records regulations: The Federal rules restrict any use of the information to criminally investigate or prosecute any alcohol or drug abuse patient.[facility] HospitalIn the event this information is protected by the Federal Confidentiality of Alcohol and Drug Abuse Patient Records regulations: The Federal rules restrict any use of the information to criminally investigate or prosecute any alcohol or drug abuse patient.[facility] HospitalIn the event this information is protected by the Federal Confidentiality of Alcohol and Drug Abuse Patient Records regulations: The Federal rules restrict any use of the information to criminally investigate or prosecute any alcohol or drug abuse patient.[facility] HospitalIn the event this information is protected by the Federal Confidentiality of Alcohol and Drug Abuse Patient Records regulations: The Federal rules restrict any use of the information to criminally investigate or prosecute any alcohol or drug abuse patient.[facility] HospitalIn the event this information is protected by the Federal Confidentiality of Alcohol and Drug Abuse Patient Records regulations: The Federal rules restrict any use of the information to criminally investigate or prosecute any alcohol or drug abuse patient.[facility] HospitalIn the event this information is protected by the Federal Confidentiality of Alcohol and Drug Abuse Patient Records regulations: The Federal rules restrict any use of the information to criminally investigate or prosecute any alcohol or drug abuse patient.[facility] Reason for Visit (unrecogniz ed section and content) Specialty Diagnoses / Procedures Referred By Linn carrillo Referred To Contact [facility] Diagnoses Abnormality of gait due to impairment of balance Procedures CONSULT TO PHYSICAL THERAPY PHYSICAL THERAPY EVALUATION HIGH COMPLEX 45 MINS Tamie Kaur MD [address] [place] [address] [facility] [address] [address] Referral ID Status Reason Start Date Expiration Date Visits Requested Visits Authorized [id number] Authorized PCP Requested Referral Auto-Generate d Referral [...] mo Reason Comments Hospital Follow Up [facility] discharged Reason Comments Results Reason Comments Consult altered mental statu s Specialty Diagnoses / Procedures Referred By Linn carrillo Referred To Contact Neurology Diagnoses Altered mental status, unspecified altered mental status type Procedures CONSULT TO NEUROLOGY OFFICE/OUTPATIENT [facility] MDM 60-74 MINUTES Abdulaziz Caldera MD [address] [place] [address] Referral ID Status Reason Start Date Expiration Date V isits Requested Visits Authorized [id number] Closed PCP Requested Referral 01/01/2022 01/01/2023 1 [...] Nursing Plan of Care Update Reason Comments [facility] PT POC Reason Comments OT plan of care Reason Onset Date Comments Refill Request 07/25/2022 Reason Comments Home Health-Nursing Update Reason Onset Date Comments Anticoagulation 07/31/2022 Specialty Diagnoses / Procedures Referred By Linn carrillo Referred To Contact Ent - Otolaryngology Diagnoses Chronic frontal sinusitis Procedures CONSULT TO ENT OFFICE/OUTPATIENT NEW HIGH MDM 60-74 MINUTES Abdulaziz Caldera MD [address] [place] [address] Referral ID Status Reason Start Date Expiration Date V isits Requested Visits Authorized [id number] Closed PCP Requested Referral 07/12/2022 07/12/2023 1 [...] Care Teams (unrecognized sec tion and content) Trapper Animal Relationship Specialty Start Date End Date Abdulaziz Caldera MD [address] [place] [address] PCP - General Family Practice 11/23/20 Trapper Animal Relationship Specialty Start Date End Date Abdulaziz Caldera MD [address] [place] [address] PCP - General Family Practice 11/23/20 Trapper Animal Relationship Specialty Start Date End Date Abdulaziz Caldera MD [address] [place] [address] PCP - General Family Practice 11/23/20 Trapper Animal Relationship Specialty Start Date End Date Abdulaziz Caldera MD [address] [place] [address] PCP - General Family Practice 11/23/20 Trapper Animal Relationship Specialty Start Date End Date Abdulaziz Caldera MD [facility] [place] [address] PCP - General Family Practice 11/23/20 Trapper Animal Relationship Specialty Start Date End Date Abdulaziz Caldera MD [address] [place] [address] PCP - General Family Practice 11/23/20 Trapper Animal Relationship Specialty Start Date End Date Abdulaziz Caldera MD [address] [place] [address] PCP - General Family Practice 11/23/20 Trapper Animal Relationship Specialty Start Date End Date Abdulaziz Caldera MD [address] [place] [address] PCP - General Family Practice 11/23/20 Trapper Animal Relationship Specialty Start Date End Date Abdulaziz Caldera MD [address] [place] [address] PCP - General Family Practice 11/23/20 Trapper Animal Relationship Specialty Start Date End Date Abdulaziz Caldera MD [address] [place] [address] PCP - General Family Practice 11/23/20 Trapper Animal Relationship Specialty Start Date End Date Abdulaziz Caldera MD [address] [place] [address] PCP - General Family Practice 11/23/20 Trapper Animal Relationship Specialty Start Date End Date Abdulaziz Caldera MD [address] [place] [address] PCP - General Family Practice 11/23/20 Trapper Animal Relationship Specialty Start Date End Date Abdulaziz Caldera MD [address] [place] [address] PCP - General Family Practice 11/23/20 Trapper Animal Relationship Specialty Start Date End Date Abdulaziz Caldera MD [address] [place] [address] PCP - General Family Practice 11/23/20 Trapper Animal Relationship Specialty Start Date End Date Abdulaziz Caldera MD [address] [place] [address] PCP - General Family Practice 11/23/20 Trapper Animal Relationship Specialty Start Date End Date Abdulaziz Caldera MD [address] [place] [address] PCP - General Family Practice 11/23/20 Trapper Animal Relationship Specialty Start Date End Date Abdulaziz Cladera MD [address] [place] [address] PCP - General Family Practice 11/23/20 Trapper Animal Relationship Specialty Start Date End Date Abdulaziz Caldera MD [address] [place] [address] PCP - General Family Practice 11/23/20 Trapper Animal Relationship Specialty Start Date End Date Abdulaziz Caldera MD [address] [place] [address] PCP - General Family Practice 11/23/20 Trapper Animal Relationship Specialty Start Date End Date Abdulaziz Caldera MD [address] [place] [address] PCP - General Family Practice 11/23/20 Trapper Animal Relationship Specialty Start Date End Date Abdulaziz Caldera MD [address] [place] [address] PCP - General Family Practice 11/23/20 Trapper Animal Relationship Specialty Start Date End Date Abdulaziz Caldera MD [address] [place] [address] PCP - General Family Medicine 11/23/20 Trapper Animal Relationship Specialty Start Date End Date Abdulaziz Caldera MD [address] [place] [address] PCP - General Family Medicine 11/23/20 Trapper Animal Relationship Specialty Start Date End Date Abdulaziz Caldera MD [address] [place] [address] PCP - General Family Medicine 11/23/20 Trapper Animal Relationship Specialty Start Date End Date Abdulaziz Caldera MD [address] [place] [address] PCP - General Family Medicine 11/23/20 Trapper Animal Relationship Specialty Start Date End Date Abdulaziz Caldera MD [address] [place] [address] PCP - General Family Medicine 11/23/20 Trapper Animal Relationship Specialty Start Date End Date Abdulaziz Caldera MD [address] [place] [address] PCP - General Family Medicine 11/23/20 Trapper Animal Relationship Specialty Start Date End Date Abdulaziz Caldera MD [address] [place] [address] PCP - General Family Medicine 11/23/20 Trapper Animal Relationship Specialty Start Date End Date Abdulaziz Caldera MD [address] [place] [address] PCP - General Family Medicine 11/23/20 Trapper Animal Relationship Specialty Start Date End Date Abdulaziz Caldera MD [address] [place] [address] PCP - General Family Medicine 11/23/20 Trapper Animal Relationship Specialty Start Date End Date Abdulaziz Caldera MD [address] [place] [address] PCP - General Family Medicine 11/23/20 Trapper Animal Relationship Specialty Start Date End Date Abdulaziz Caldera MD [address] [place] [address] PCP - General Family Medicine 11/23/20 Trapper Animal Relationship Specialty Start Date End Date Abdulaziz Caldera MD [address] [facility] [place] [address] PCP - General Family Medicine 11/23/20 Trapper Animal Relationship Specialty Start Date End Date Abdulaziz Caldera MD [address] [facility] [place] [address] PCP - General Family Medicine 11/23/20 Trapper Animal Relationship Specialty Start Date End Date Abdulaziz Caldera MD [address] [facility] [place] [address] PCP - General Family Medicine 11/23/20 Trapper Animal Relationship Specialty Start Date End Date Abdulaziz Caldera MD [address] [place] [address] PCP - General Family Medicine 11/23/20 Trapper Animal Relationship Specialty Start Date End Date Abdulaziz Caldera MD [address] [place] [address] PCP - General Family Medicine 11/23/20 Trapper Animal Relationship Specialty Start Date End Date Abdulaziz Caldera MD [address] [place] [address] PCP - General Family Medicine 11/23/20 Trapper Animal Relationship Specialty Start Date End Date Abdulaziz Caldera MD [address] [place] [address] PCP - General Family Medicine 11/23/20 Trapper Animal Relationship Specialty Start Date End Date Abdulaziz Caldera MD [address] [place] [address] PCP - General Family Medicine 11/23/20 Trapper Animal Relationship Specialty Start Date End Date Abdulaziz Caldera MD [address] [place] [address] PCP - General Family Medicine 11/23/20 Trapper Animal Relationship Specialty Start Date End Date Abdulaziz Caldera MD [address] [place] [address] PCP - General Family Medicine 11/23/20 (unrecognized sect ion and content) No Status Records FoundNo Status Records FoundNo Status Records FoundNo Status Records Found INFORMATION SOURCE (unrecogn ized section and content) DATE CREATED AUTHOR AUTHOR'S ORGANIZ ATION 02/04/2022 [facility] DATE CREATED AUTHOR AUTHOR'S ORGANIZ ATION 04/19/2022 [facility] ([place]) DATE CREATED AUTHOR AUTHOR'S DESTINY ATION 05/30/2023 [facility] FOR RECORDS PERTAINING TO PATIENTS WHO [...] BE BASED ON THE PRIMARY CLINICAL RECORDS. [facility] [employer] [facility]. provides no warranty or guarantee of the accuracy or completeness of information in this document.
[2023-07-03 07:51] LABS: INR Fingerstick 1.5; Prothrombin Time Fingerstick 16.5 SEC (11.7-14.9)
== END ==
LOC: OLS.ACH 04:00
PROVIDERS: PCP Family Medicine; Referring Provider Internal Medicine; Visit Provider Internal Medicine
DX: Z79.01 Long term (current) use of anticoagulants (principal)
CPT/HCPCS: 36416; 85610

== ENCOUNTER → 2023-07-10 | Outpatient (REF) | payer MEDICARE, OTHER, SELFPAY ==
[2023-07-10 08:20] LABS: INR Fingerstick 2.3; Prothrombin Time Fingerstick 25.4 SEC (11.7-14.9)
== END ==
LOC: OLS.ACH 05:00
PROVIDERS: PCP Family Medicine; Visit Provider Internal Medicine
DX: Z79.01 Long term (current) use of anticoagulants (principal)
CPT/HCPCS: 36416; 85610

== ENCOUNTER → 2023-07-17 | Outpatient (REF) | payer MEDICARE, OTHER, SELFPAY ==
[2023-07-17 09:55] LABS: Prothrombin Time Fingerstick 32.2 SEC (11.7-14.9)
== END ==
LOC: OLS.ACH 04:00
PROVIDERS: PCP Family Medicine; Referring Provider Internal Medicine; Visit Provider Internal Medicine
DX: Z79.01 Long term (current) use of anticoagulants (principal)
CPT/HCPCS: 36416; 85610

== ENCOUNTER → 2023-07-19 | Outpatient (REF) | payer MEDICARE, OTHER, SELFPAY ==
--- OUTSIDE RECORDS SUMMARY | 2023-07-19 04:24 | XMS RPT_ITS | CCD ---
Author Name Unknown Address [address] [place] [address] Organization [facility] Care Team Providers Care 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 Name Role Phone Abdulaziz Caldera MD Primary [...] pantoprazole; Translations: [PANTOPRAZOLE] Drug Allergy 03-12-2020 Diarrhea [facility] Medications Current Medications Medication Drug [...] Coronary atherosclerosis; Translations: [Atherosclerotic heart disease of [place] coronary artery without angina pectoris] Chronic Diabetes mellitus with complications (20 sources) Polyneuropathy due to type 2 diabetes mellitus; Translations: [Type 2 diabetes mellitus with diabetic polyneuropathy] Onset: Treatment Minutes: 10 Gait Training Treatment Minutes: 25 Total Treatment Time Minutes (timed/untimed): 40 Justina Escoto PT documented in this encounter [facility] 12-12-2022 Note HNO ID: [id number] Author: Justina Escoto, PT Service: ? Author Type: Physical Therapist Type: Progress Notes Filed: 12/12/2022 6:34 PM Note Text: Episode Visit Count: 4 Therapist That Will Accept/Oversee The Plan Of Care: Justina Escoto Start of Care Date: 11/29/22 Onset Date: 09/29/22 Plan of Care Certification Date: 11/29/22 Next Certification Due Date: 01/03/23 [facility] PHYSICAL THERAPY TREATMENT NOTE ASSESSMENT: Richard Szymanski tolerated the session with fatigue. He demonstrated [...] Time Minutes (timed/untimed): 40 Justina Escoto, PT [facility] 12-12-2022 History of Presen t illness Narrative Episode Visit Count: 4 Therapist That Will Accept/Oversee The Plan Of Care: Justina Escoto Start of Care Date: 11/29/22 Onset Date: 09/29/22 Plan of Care Certification Date: 11/29/22 Next Certification Due Date: 01/03/23 REHABIL[facility]ATION [facility] SPORTS THERAPY PHYSICAL THERAPY TREATMENT NOTE ASSESSMENT: Richard Szymanski tolerated the session with fatigue. He demonstrated [...] Justina Escoto PT documented in this encounter [facility] 12-06-2022 Note HNO ID: [id number] Author: Justina Escoto PT Service: ? Author Type: Physical Therapist Type: Progress Notes Filed: 12/06/2022 10:02 AM Note Text: Episode Visit Count: 3 Therapist That Will Accept/Oversee The Plan Of Care: Justina Escoto Start of Care Date: 11/29/22 Onset Date: 09/29/22 Plan of Care Certification Date: 11/29/22 Next Certification Due Date: 01/03/23 REHABIL[facility]ATION AND SPORTS THERAPY PHYSICAL THERAPY TREATMENT NOTE ASSESSMENT: Richard Szymanski tolerated the session with fatigue. He demonstrated [...] Time Minutes (timed/untimed): 40 Justina Escoto PT [facility] 12-03-2022 Note HNO ID: [id number] Author: Bobbi Garcia MD Service: ? Author Type: Physician Type: Progress Notes Filed: 12/03/2022 12:13 PM Note Text: [facility] SECTION [facility] REGIONAL CARDIOLOGY Cardiology ([facility]) [address] [facility] [id number] OUTPATIENT VISIT DATE 12/03/2022 PRIMARY CARE PHYSICIAN: Abdulaziz Caldera [address] [place] [address] HISTORY OF PRESENT ILLNESS: Mr. Szymanski is a 77 year old gentleman with [...] 100 04/01/2012 NSTEMI (non-ST elevated myocardial infarction) (HCC) Pulmonary embolus, right (HCC) 09/25/2013 Status post aortic valve repair 2005 Thoracic aneurysm without mention of rupture Type 2 diabetes mellitus with stage 3 chronic kidney disease, with long-term current use of insulin (HCC) 06/20/2016 Vitamin D deficiency 01/03/2022 PAST SURGICAL HISTORY Procedure Laterality Date ABDOMINAL SURGERY HX AMPUTATION METATARSAL+TOE,SINGLE Right 05/25/2018 with delayed closure on 05/28/18. Dr. Obregon at [facility] COLONOSCOPY 10/10/2021 repeat in 3 years COLONOSCOPY [...] 5 EachRfl: 5 warfarin (COUMADIN) 5 mg [id number] mg Saturday and Saturday, 7.5 mg all [...] Units subcutaneously daily (more content not included)... [facility] 12-03-2022 Note HNO ID: [id number] Author: Justina Escoto PT Service: ? Author Type: Physical Therapist Type: Progress Notes Filed: 12/03/2022 9:38 AM Note Text: Episode Visit Count: 2 Therapist That Will Accept/Oversee The Plan Of Care: Justina Escoto Start of Care Date: 11/29/22 Onset Date: 09/29/22 Plan of Care Certification Date: 11/29/22 Next Certification Due Date: 01/03/23 REHABILITATION AND SPORTS THERAPY PHYSICAL THERAPY TREATMENT NOTE ASSESSMENT: Richard Szymanski tolerated the session with no issues. He [...] facilitated with verbal, visual, and tactile cueing. Self-Snf Management: 1: *at length discussed importance of letting physician know about pt. concerns with his loss of interest in things prior to COVID-19 pandemic 2: *discussed that motivation will come from the pt. not from the or the therapist -- and this will directly influence pt. mcfp progress. 3: *discussed with and pt. that pt. stating I'm lazy. is not his personality and pt. states that he does not want to be this way, but he wants to be comfortable. (more content not included)... [facility] 11-29-2022 Note HNO ID: [id number] Author: Justina Escoto, PT Service: ? Author [...] THERAPY EVALUATION PLAN OF CARE: Assessment: Richard Szymanski presents with diagnosis of chronic bilateral low [...] 11 repetitions to reflect decreased fall risk. Kay in home exercise program including cardiovascular exercise. [...] Planned: 12 Planned Treatment Interventions: Therapeutic exercise (89459), Neuromuscular re-education (82246), Manual therapy (76630), Therapeutic activities (83670), Self-assisted management (88388), Gait Training (99812), Patient/Family/Caregiver Education PLAN FOR NEXT VISIT: Assess low back symptom response to repeated lumbar flexion. Assess balance next visit if pt. presents with both shoes donned. Patient demonstrates fair understanding of plan of care and treatment. The above goals and plan of care were discussed and agreed upon by patient/family. SUBJECTIVE: Richard Szymanski is a 77 year old male seen [...] <20 [facility] (more content not included)... [facility] 11-20-2022 Miscellaneous Notes OMAR 11/19/22 Appointment [...] to the pharmacy. Please call patient at: [phone]. Nola Lockhart documented in this encounter [facility] 11-19-2022 Miscellaneous Notes Pt notified [...] result): 09/24/2022 2.5 documented in this encounter [facility] 11-19-2022 Note HNO ID: [id number] Author: Abdulaziz Caldera MD Service: ? Author Type: Physician Type: Progress Notes Filed: 11/19/2022 9:24 AM Note Text: Chief Complaint Patient presents with: Back Pain: Mid back pain-for several months HPI Richard Szymanski is a 77 year old male who [...] 100 04/01/2012 NSTEMI (non-ST elevated myocardial infarction) ([facility]) Pulmonary embolus, right ([facility]) 09/25/2013 Status post aortic valve repair 2005 Thoracic aneurysm without mention of rupture Type 2 diabetes mellitus with stage 3 chronic kidney disease, with long-term current use of insulin ([facility]) 06/20/2016 Vitamin D deficiency 01/03/2022 Previous Surgical History PAST SURGICAL HISTORY Procedure Laterality Date ABDOMINAL SURGERY HX AMPUTATION METATARSAL+TOE,SINGLE Right 05/25/2018 with delayed closure on 05/28/18. Dr. Obregon at [facility] COLONOSCOPY 10/10/2021 repeat in 3 years COLONOSCOPY [...] chloride 0.9 % (more content not included)... [facility] 10-22-2022 Note HNO ID: [id number] Author: Arminda Orbegon Service: ? Author Type: Physician Type: Progress [...] RTC in 3-4 months. Arminda Obregon DPM [facility] 10-22-2022 Note HNO ID: [id number] Author: Blaire Sandoval RN Service: ? Author Type: ? Type: Progress Notes Filed: 10/22/2022 3:47 PM Note Text: Patient presents with: Left Foot - Established Patient, Diabetic Foot Care Right Foot - Established Patient, Diabetic Foot Care [facility] 10-22-2022 History of Presen t illness [...] Diabetic Foot Care documented in this encounter [facility] 10-22-2022 Instructions Arminda Obregon - [...] (or decreased sensation in your feet) a flag car driver should always cut your toenails. Be Careful [...] Go to your health care provider or flag car driver to treat these conditions. documented in this encounter [facility] 09-25-2022 Miscellaneous Notes Patient notified. [...] or narrative: no documented in this encounter [facility] 09-07-2022 Note HNO ID: [id number] Author: Tamie Kaur MD Service: ? Author [...] evaluation of folllow up after hospitalization in [facility]. he was admitted because of syncopal [...] others [facility] was staying in the house by [...] Benign-Dr. 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 ([facility]) 05/25/2018 History of transfusion Hyperlipidemia LDL goal < 100 04/01/2012 NSTEMI (non-ST elevated myocardial infarction) ([facility]) Pulmonary embolus, right ([facility]) 09/25/2013 Status post aortic valve repair 2005 Thoracic aneurysm without mention of rupture Type 2 diabetes mellitus with stage 3 chronic kidney disease, with long-term current use of insulin ([facility]) 06/20/2016 Vitamin D deficiency 01/03/2022 PSH: PAST SURGICAL HISTORY Procedure Laterality Date ABDOMINAL SURGERY HX AMPUTATION METATARSAL+TOE,SINGLE Right 05/25/2018 (more content not included)... [facility] 09-07-2022 Miscellaneous Notes Call to patient. Provided number to schedule- [phone]. Offered to transfer patient to schedule but patient declined to schedule stating he could call later. PAOLA Potter, RN September 07, 2022 1:11 PM Suzanne please let patient know how to proceed with driving evaluation I already put the order in computer documented in this encounter [facility] 09-07-2022 History of Presen t [...] evaluation of folllow up after hospitalization in [facility]. he was admitted because of syncopal [...] others [facility] and was staying in the house by [...] 100 04/01/2012 NSTEMI (non-ST elevated myocardial infarction) ([facility]) Pulmonary embolus, right (HCC) 09/25/2013 Status post aortic valve repair 2005 Thoracic aneurysm without mention of rupture Type 2 diabetes mellitus with stage 3 chronic kidney disease, with long-term current use of insulin (HCC) 06/20/2016 Vitamin D deficiency 01/03/2022 PSH: PAST SURGICAL HISTORY Procedure Laterality Date ABDOMINAL SURGERY HX AMPUTATION METATARSAL+TOE,SINGLE Right 05/25/2018 with delayed closure on 05/28/18. Dr. Obregon at [facility] COLONOSCOPY 10/10/2021 repeat in 3 years COLONOSCOPY [...] one time a week. blood sugar diagnostic (Genapsys ULTRA TEST) test strip Test blood sugar(s) [...] gait ,unsteady Cannot tandem Tamie Kaur M.D. [facility] Neurological [place] Department of Neurology Total time in minutes [...] on at night. documented in this encounter [facility] 08-28-2022 Miscellaneous Notes Phoned patient [...] 08/13/22- 2.7 Additional Clinical Information or narrative: no Tania Heller LPN documented in this encounter [facility] 08-16-2022 Miscellaneous Notes Patient has [...] patient. Grecia Bustillo documented in this encounter [facility] 08-14-2022 Miscellaneous Notes Phoned patient [...] or narrative: no documented in this encounter [facility] 08-09-2022 Note HNO ID: [id number] Author: Abdulaziz Caldera MD Service: ? Author Type: Physician Type: Progress Notes Filed: 08/09/2022 5:05 PM Note Text: Chief Complaint Patient presents with: Follow Up: 4 week DM HPI Richard Szymanski is a 76 year old male who presents here today for Above Complaints. DIABETES MELLITUS: Mr. Szymanski was last seen 5 months ago. Patient's [...] 12 months ago. Going to schedule appointment [facility]. 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 Asymtpomatic still on medical management. Has completed his home PT/OT. Echo and stress test at [facility] were negative/normal. Has follow up with Dr. Garcia on 12/03. questioning if they should be seen sooner. BP well controlled with current regimen <130/80. BPH: With use of flomax, patient is getting up once at night to urinate. Has weak stream, but denies straining, incomplete emptying, dysuria, hematuria, incontinence. Followed up with ENT in [place] for chronic frontal sinusitis on CT/MRI going back to February. Told this did not require treatment. F/u PRN. Denies sinus pressure/pain/congestion. Past medical history, appointments, medications, allergies reviewed. Previous Medical History PAST MEDICAL HISTORY Diagnosis Date BPH (benign prostatic hyperplasia) Cholelithiasis 09/25/2013 Chronic neutrophilia Benign-Dr. 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 Dr. Obregon at [facility] COLONOSCOPY 10/10/2021 repeat in 3 years COLONOSCOPY [...] daily. For cholesterol. (more content not included)... [facility] 08-09-2022 History of Presen t illness Narrative Chief Complaint Patient presents with: Follow Up: 4 week DM HPI Richard Szymanski is a 76 year old male who presents here today for Above Complaints. DIABETES MELLITUS: Mr. Szymanski was last seen 5 months ago. Patient's [...] 12 months ago. Going to schedule appointment [facility] [place]. 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 Asymtpomatic still on medical management. Has completed his home PT/OT. Echo and stress test at [facility] were negative/normal. Has follow up with Dr. Garcia on 12/03. questioning if they should be seen sooner. BP well controlled with current regimen <130/80. BPH: With use of flomax, patient is getting up once at night to urinate. Has weak stream, but denies straining, incomplete emptying, dysuria, hematuria, incontinence. Followed up with ENT in [place] for chronic frontal sinusitis on CT/MRI going [...] current use of insulin ([facility]) 06/20/2016 Vitamin D deficiency 01/03/2022 Previous Surgical History PAST SURGICAL HISTORY Procedure Laterality Date ABDOMINAL SURGERY HX AMPUTATION METATARSAL+TOE,SINGLE Right 05/25/2018 with delayed closure on 05/28/18. Dr. Obregon at [facility] COLONOSCOPY 10/10/2021 repeat in 3 years COLONOSCOPY [...] by mouth once daily. blood sugar diagnostic (Genapsys ULTRA TEST) test strip Test blood sugar(s) [...] Abs Lymph 1.00 - 4.00 k/uL 1.81 [place]% % 6.9 Abs [place] <0.87 k/uL 0.86 [place]% % 3.1 Abs [...] neuropathy, with long-term current use of insulin ([facility]) - ICD9: 250.60, 357.2, V58.67, ICD10: E11.40, Z79.4 (primary diagnosis) improved control - Continue current medications - Blood glucose monitoring on a four times a day schedule - Encouraged regular aerobic exercise and weight loss - Follow up in 6 months, sooner should any other issues arise. - Discussed diabetic education issues of mcfp diabetic complications, hypoglycemic symptoms, hyperglycemic symptoms, diet, [...] with type 2 diabetes mellitus ([facility]) - ICD9: 250.60, 357.2, ICD10: E11.42 Controlled on current regimen. 3. NSTEMI (non-ST elevated myocardial infarction) ([facility]) - ICD9: 410.70, ICD10: I21.4 Patient asymptomatic [...] Abdulaziz Caldera MD documented in this encounter [facility] 08-06-2022 Miscellaneous Notes Phoned patient and updated him with provider's message. Patient voiced understanding. I would not recommend a baby ASA for this patient. Pt called to check on refill on baby aspirin. This is not on med list. Pt asking if he should be taking this. Please advise pt. Mila Castro LPN documented in this encounter [facility] 08-06-2022 Note HNO ID: [id number] Author: Arminda Jaimes MD Service: ? Author Type: Physician Type: Progress Notes Filed: 08/06/2022 11:20 AM Note Text: HPI Richard Szymanski is a 76 year old male who [...] physician via mail or electronic medical record. [facility] 08-06-2022 History of Presen t illness Narrative HPI Richard Szymanski is a 76 year old male who [...] electronic medical record. documented in this encounter [facility] 07-31-2022 Miscellaneous Notes Spoke with patient , Lorena and informed of therapeutic range INR and [...] Rebecca Esteban LPN documented in this encounter [facility] 07-27-2022 Miscellaneous Notes [employer] message not read as of 07/27/2022. Called and spoke with patient. Appt rescheduled to 09/07/2022 at 11:00 AM Meghana Burgess Due to change in provider's schedule, appt on 08/21/2022 needs rescheduled. Patient notified via [employer] message on 07/05/2022. Meghana Burgess documented in this encounter [facility] 07-26-2022 Miscellaneous Notes Thanks. Darlyn, a nurse with [facility] calling to state she has discharged pt from [facility] today. Pt is doing really well. No call back needed. Thank you. documented in this encounter [facility] 07-25-2022 Miscellaneous Notes Last Office Visit: 07/12/2022 Future Office Visit: 08/09/2022 Requested Prescriptions Pending Prescriptions Disp Refills amLODIPine (NORVASC) 2.5 mg tablet 30 tablet 5 Sig: Take 1 tablet by mouth once daily. Date of Last Labs: 03/02/2022 documented in this encounter [facility] 07-17-2022 Miscellaneous Notes Reviewed and agree. Maverick PT calling from [facility] to report plan of care for patient and PT will visit patient 2 times a week for 3 weeks. PT will work with patient on functional mobility training. Halima Diaz RN documented in this encounter [facility] 07-17-2022 Miscellaneous Notes Reviewed. Barbi from [facility] Home Health calling with OT plan of care, one time visit only, patient denies any further OT needs. No call back needed. documented in this encounter [facility] 07-13-2022 Miscellaneous Notes Left detailed message on confidential line Ewa Andino Ma agree Chiki, a nurse with [facility] calling with Correction Plan of Care for patient: Patient will be seen 1 time per week for 4 weeks for BP monitoring. No call back needed if provider agreeable. Thank you. documented in this encounter [facility] 07-12-2022 Note HNO ID: [id number] Author: Abdulaziz Caldera MD Service: ? Author Type: Physician Type: Progress Notes Filed: 07/17/2022 8:33 AM Note Text: Chief Complaint Patient presents with: Hospital F/U: Admitted 07/09/22 discharged 07/11/22 HPI Richard Szymanski is a 76 year old male who presents here today for Hospital Discharge Follow up.. Patient was admitted to [facility] from 07/09 to 07/11 after presenting to [...] to follow up with our office and ic designer gate arrays. Since discharge yesterday, patient has been doing [...] Benign-Dr. 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 Dr. Obregon at [facility] COLONOSCOPY 10/10/2021 repeat in 3 years COLONOSCOPY [...] 0.4 mg Take (more content not included)... [facility] 07-12-2022 Miscellaneous Notes Karly was notified Ewa Andino Ma Agree and will follow Karly with [facility] called and reports Pt was discharged yesterday and they received a referral for PT/OT/SN. They are going to do their start of care tomorrow, and she was asking if the provider would be willing to follow. documented in this encounter [facility] 07-09-2022 Miscellaneous Notes Last Office Visit: 04/16/2022 Future Office Visit: 09/17/2022 Requested Prescriptions Pending Prescriptions Disp Refills dulaglutide (TRULICITY) 1.5 mg/0.5 mL pen injector 12 Each 3 Sig: Inject 1.5 mg subcutaneously one time a week. Inject once per week. Discard Pen After Date of Last Labs: 03/02/2022 documented in this encounter [facility] 07-03-2022 Note HNO ID: [id number] Author: Arminda Obregon Service: ? Author Type: [...] RTC in 3-4 months. Arminda Obregon DPM [facility] 07-03-2022 Note HNO ID: [id number] Author: Marcella Cox RN Service: ? Author Type: Registered Nurse Type: Progress Notes Filed: 07/03/2022 11:17 AM Note Text: Patient presents with: Left Foot - Established Patient, Follow Up, nail care Right Foot - Established Patient, Follow Up, nail care [facility] 07-02-2022 Note HNO ID: [id number] Author: Bobbi Garcia MD Service: ? Author Type: Physician Type: Progress Notes Filed: 07/02/2022 12:42 PM Note Text: [facility] SECTION OF REGIONAL CARDIOLOGY Cardiology ([address]) [address] [facility] [id number] OUTPATIENT VISIT DATE 07/02/2022 PRIMARY CARE PHYSICIAN: Abdulaziz Caldera [address] [place] [address] HISTORY OF PRESENT ILLNESS: Mr. Szymanski is a 76 year old gentleman with [...] HISTORY: From Last OV with Justina Hadley CNP 01/01/2022: Richard Szymanski is a 76 year old male who presents for routine follow up. 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 His accompanies him for his office visit today. They both explain to me he was hospitalized at [facility] for 2 days last week for syncope/collapse. [...] LE swelling. Records have been requested from [facility]. He is unsure of what testing was completed. An echocardiogram was ordered at his last office visit with me. If this was not completed at [facility], I recommend this be completed for further cardiac evaluation. PAST MEDICAL HISTORY Diagnosis Date BPH (benign prostatic hyperplasia) Cholelithiasis 09/25/2013 Chronic neutrophilia Benign-Dr. 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 Dr. Obregon at [facility] COLONOSCOPY 10/10/2021 repeat in 3 years COLONOSCOPY [...] at bedtime.Disp: 3 (more content not included)... [facility] 06-25-2022 Miscellaneous Notes Last appt: 04/16/22 [...] Tania Heller LPN documented in this encounter [facility] 05-16-2022 Miscellaneous Notes Patient has [...] Mila Castro LPN documented in this encounter [facility] 04-17-2022 History of Presen t [...] evaluation of folllow up after hospitalization in [facility]. 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 Dr. Obregon at [facility] COLONOSCOPY 10/10/2021 repeat in 3 years COLONOSCOPY [...] week. Discard Pen After blood sugar diagnostic (GamgeeTOUCH ULTRA TEST) test strip Test blood sugar(s) [...] gait ,unsteady Cannot tandem Tamie Kaur M.D. [facility] [place] Department of Neurology Total time in minutes [...] on at night. documented in this encounter [facility] 04-17-2022 Miscellaneous Notes Reviewed. Behavioral Health Social Work Progress Note Patient [facility] from: PCP Reason for referral: Resources Behavioral Health Resources: Psychology - talk therapy [facility] encounter type: Telephone Encounter Attempts to Outreach: 1 attempt Referral made: Psychology - External Psychology-External referral type: Therapy Reason for external referral: Wait times at [facility] too long Final Disposition: Resources given Patient Discharged?: Yes Patient reported that caregiver was able to meet their needs today?: Yes SW placed a phone call to patient at the request of the PCP. Pt reported he is looking for talk therapy referrals at this time. SW provided the following referrals via phone: [employer] [facility] [employer] [facility] [address], [address], [facility] [id number] *counseling [id number] [place], [place] [address] *counseling [facility] [address] [place] [address] *counseling [facility] [address] [place] [address] FEDERICO Zamudio April 17, 2022 documented in this encounter [facility] 04-16-2022 History of Presen t illness Narrative Chief Complaint Patient presents with: Physical HPI Richard Szymanski is a 76 year old male who [...] like referral. Denies SI/HI. DIABETES MELLITUS: Mr. Szymanski was last seen 6 months ago. Since [...] Benign-Dr. 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 Dr. Obregon at [facility] COLONOSCOPY 10/10/2021 repeat in 3 years COLONOSCOPY [...] week. Discard Pen After blood sugar diagnostic (Genapsys ULTRA TEST) test strip Test blood sugar(s) [...] Abs Lymph 1.00 - 4.00 k/uL 1.81 [place]% % 6.9 Abs [place] <0.87 k/uL 0.86 [place]% % 3.1 Abs [...] with long-term current use of insulin (HCC) - ICD9: 250.40, 585.3, V58.67, ICD10: E11.22, N18.31, Z79.4 (primary diagnosis) Controlled. - Continue current medications - Blood glucose monitoring on a 3 times a day schedule - Encouraged regular aerobic exercise and weight loss - Follow up in 6 months, sooner should any other issues arise. - Discussed diabetic education issues of mcfp diabetic complications, hypoglycemic symptoms, hyperglycemic symptoms, diet, [...] Abdulaziz Caldera MD documented in this encounter [facility] documented in this encounter [facility] History of Present illness Narrative* Roselia Madrigal, BUS DRIVER SUPERVISOR.LIABILITY CLAIMS REPRESENTATIVE - 04/06/2022 9:40 AM EDT 04/06/2022 Patient [...] kidney disease, with long-term current use of insulin([facility]) 06/20/2016 Vitamin D deficiency 01/03/2022 ALLERGIES Pantoprazole [...] ONCE DAILY. FOR CHOLESTEROL. blood sugar diagnostic ([employer]CH ULTRA TEST) test strip Test blood sugar(s) [...] SEASONAL QUADRIVALENT HIGH DOSE AGE 65+ - [place] COVID-19 BIVALENT BOOSTER VACCINE, AGE 12+ YR 3. Mild depression - ICD9: 311, ICD10: F32.A - discussed antidepressant - patient declines- he reports he does not feel depressed - encouraged marriage counseling as seems to be unhappy about his lack of motivation Roselia Podlogar, BUS DRIVER SUPERVISOR.LIABILITY CLAIMS REPRESENTATIVE Prescription instructions reviewed with patient as applicable. [...] which included preparing to see the patient, [id number] patient care, completing clinical documentation, obtaining and/or reviewing separately obtained history, performing a medically appropriate examination, and counseling and educating the patient/family/caregiver. [facility] Miscellaneous Notes* Telephone Encounter - [...] Current dose of coumadin is: 10 mg Mon and Sat, then 7.5 mg all other days. Last date of dose change: Unk. Previous INR (date and result): 2.9 on 03/07/22 Additional Clinical Information or narrative: no Routed to [facility] Provider to review and advise. Razia Shaver Ma * Telephone Encounter - Razia Shaver Ma - 04/04/2022 10:02 AM EDT ----- Message from Roselia Madrigal APRN.CNP sent at 04/03/2022 2:47 PM EDT ----- Please forward INR to doctor conference services director Roselia Podlogar, BUS DRIVER SUPERVISOR.LIABILITY CLAIMS REPRESENTATIVE documented in this encounterThe [facility] History of Present illness Narrative* [...] Care Merlene Martinez LPN documented in this encounterThe [facility] Instructions* Patient Instructions* Arminda Obregon [...] (or decreased sensation in your feet) a flag car driver should always cut your toenails. Be Careful [...] Go to your health care provider or flag car driver to treat these conditions. documented in this encounterThe [facility] History of Present illness Narrative* [...] CARE PLAN OF CARE UPDATE: Assessment: Richard Bonilla Kirill is discontinued from Physical Therapy services due to goal achievement.. Patient was seen for 17 visits from Start of Care Date: 01/12/22 to 03/23/2022 and treatment included: Therapeutic exercise, Neuromuscular re-education, and Patient/Family/Caregiver Education. Goals for Episode of Care: created on 01/12/22 through 03/15/22 Goals updated on 03/23/2022. Kay in home exercise program. (Met) Patient will [...] Rosa Elena Poon PT documented in this encounterThe [facility] Miscellaneous Notes* Telephone Encounter - Maggy Lockhart - 03/22/2022 1:49 PM EDT Pharmacy verified in [facility] Patient has been identified by name and [...] advise. Maggy Ibarra Pss documented in this encounterThe [facility] History of Present illness Narrative* [...] THERAPY PHYSICAL THERAPY TREATMENT NOTE ASSESSMENT: Richard Szymanski tolerated the session with fatigue. He demonstrated [...] Treatment Time Minutes (timed/untimed): 40 Karen Weber, ALISIA Poon PT documented in this encounterThe [facility] History of Present illness Narrative* [...] THERAPY PHYSICAL THERAPY TREATMENT NOTE ASSESSMENT: Richard Szymanski tolerated the session with fatigue. He demonstrated [...] 23 Total Treatment Time Minutes (timed/untimed): 41 Karen Weber, SHEET ROCK NAILER Rosa Elena Poon PT documented in this encounterThe [facility]08-[facility]22 Miscellaneous Notes* Addendum Note - Rosa Elena Poon PT - 03/09/2022 1:18 PM EDTAddended by: ROSA ELENA POON on: 03/09/2022 01:18 PM Modules accepted: Orders documented in this encounterThe [facility]08-[facility]22 History of Present illness Narrative* [...] REPORT PLAN OF CARE UPDATE: Assessment: Richard Szymanski demonstrates improvements in activity endurance, rising from [...] 01/12/22 through 03/15/22 Goals updated on 03/09/2022. Kay in home exercise program. (Met) Patient will [...] Patient to be seen for Therapeutic exercise (29026);Neuromuscular re-education (42687);Gait Training (74360);Patient/Family/Caregiver Education PLAN FOR NEXT VISIT: Add bridging [...] Rosa Elena Poon PT documented in this encounterThe [facility]22 Miscellaneous Notes* Telephone Encounter - [...] testing Madison Ma Cma documented in this encounterThe [facility]08-24-[facility]22 Instructions* Patient Instructions* Abdulaziz Caldera MD - 03/07/2022 11:45 AM EDT Please take 2,000 units of vitamin D daily over the counter. documented in this encounterThe [facility]22 History of Present illness Narrative* Abdulaziz Caldera MD - 03/07/2022 11:19 AM EDT Chief Complaint Patient presents with: 6 Month Exam ER F/U HPI Richard Szymanski is a 76 year old male who presents here today for ER Follow Up.. Patient evaluated at [facility] ED on 03/02 for complaint of weakness [...] Benign-Dr. 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 Dr. Obregon at [facility] COLONOSCOPY 10/10/2021 repeat in 3 years COLONOSCOPY [...] ONCE DAILY. FOR CHOLESTEROL. blood sugar diagnostic (Genapsys ULTRA TEST) test strip Test blood sugar(s) [...] Abs Lymph 1.00 - 4.00 k/uL 1.81 [place]% % 6.9 Abs [place] <0.87 k/uL 0.86 Eosin% % 3.1 Abs [...] PANEL Abdulaziz Caldera MD documented in this encounterThe [facility]08-[facility]-2022 History of Present illness Narrative* [...] SPORTS THERAPY PHYSICAL THERAPY TREATMENT NOTE ASSESSMENT: K Kirill tolerated the session with decreased endurance, fatigue, [...] Rosa Elena Poon PT documented in this encounterThe [facility]08-19-2022 History of Present illness Narrative* [...] THERAPY PHYSICAL THERAPY TREATMENT NOTE ASSESSMENT: Richard Bonilla Kirill tolerated the session with fatigue and expected [...] Rosa Elena Poon PT documented in this encounterThe [facility]08-15-2022 History of Present illness Narrative* [...] THERAPY PHYSICAL THERAPY TREATMENT NOTE ASSESSMENT: Richard Szymanski tolerated the session with fatigue and expected [...] Rosa Elena Poon PT documented in this encounterThe [facility]08-12-2022 History of Present illness Narrative* [...] SPORTS THERAPY PHYSICAL THERAPY TREATMENT NOTE ASSESSMENT: Irene Szymanski tolerated the session with fatigue. He demonstrated [...] 20 Total Treatment Time Minutes (timed/untimed): 43 Karen Weber, SHEET ROCK NAILER Rosa Elena Poon PT documented in this encounterThe [facility]08-03-2022 History of Present illness Narrative* [...] THERAPY PHYSICAL THERAPY TREATMENT NOTE ASSESSMENT: Richard Szymanski tolerated the session with fatigue and expected [...] 27 Total Treatment Time Minutes (timed/untimed): 47 RosaE lena Poon PT documented in this encounterThe [facility]07-29-2022 History of Present illness Narrative* [...] REPORT PLAN OF CARE UPDATE: Assessment: Richard Szymanski demonstrates difficulty with walking in the community [...] 01/12/22 through 03/15/22 Goals updated on 02/09/2022. Kay in home exercise program. (Met) Patient will [...] Patient to be seen for Therapeutic exercise (45177);Neuromuscular re-education (80183);Gait Training (59763);Patient/Family/Caregiver Education PLAN FOR NEXT VISIT: Continue to [...] Rosa Elena Poon PT documented in this encounterThe [facility]07-26-2022 Miscellaneous Notes* Telephone Encounter - Nola Castro Pss - 02/06/2022 2:18 PM EDT Patient has been identified by name and date of : Yes Pending Prescriptions Disp Refills PEN NEEDLE, DIABETIC 31 GAUGE X 11/27 120 Each 11 Si Each four times daily. With insulin NUHA: No RX INSTRUCTIONS: Patient aware RX will be sent to pharmacy. No need to notify patient. Nola Castro Pss documented in this encounterThe [facility]07-[facility]-2022 History of Present illness Narrative* [...] THERAPY PHYSICAL THERAPY TREATMENT NOTE ASSESSMENT: Richard Szymanski tolerated the session with no issues. He [...] 43 ALISIA Whiting PT documented in this encounterThe [facility]07-21-2022 Miscellaneous Notes* Telephone Encounter - [...] it weekly? * Telephone Encounter - Eulalia Gaston [employer] - 01/31/2022 4:32 PM EDT Patient has been identified by name and date of : Yes Pending Prescriptions Disp Refills CHOLECALCIFEROL (VITAMIN D3) 1,250 MCG (50,000 UNIT) CAPSULE 12 capsule 0 Sig: Take 1 capsule by mouth one time a week. NUHA: No OMAR-01/02/22 Labs-01/13/22 NOV-07/04/22 RX INSTRUCTIONS: Patient aware RX will be sent to pharmacy. No need to notify patient. Eulalia Gaston [facility] documented in this encounterThe [facility]07-19-2022 History of Present illness Narrative* [...] THERAPY PHYSICAL THERAPY TREATMENT NOTE ASSESSMENT: Richard Szymanski tolerated the session with fatigue. He demonstrated [...] 43 ALISIA Whiting, PT documented in this encounterThe [facility]07-12-2022 Miscellaneous Notes* Telephone Encounter - [...] you. Rebecca Gonzales RN documented in this encounterThe [facility]07-12-2022 History of Present illness Narrative* Chiki Carson, PT - 01/23/2022 3:25 PM EDT Episode Visit Count: 2 Therapist That Will Oversee The Plan Of Care: Rosa Elena Poon Start of Care Date: 01/12/22 Onset Date: 12/28/21 Plan of Care Certification Date: 01/12/22 Next Certification Due Date: 03/15/22 Patient Identified by Name and Date of : Yes REHABILITATION AND SPORTS THERAPY PHYSICAL THERAPY TREATMENT NOTE ASSESSMENT: Richard Szymanski tolerated the session with no issues. He [...] 15 Total Treatment Time Minutes (timed/untimed): 45 Karen Weber SHEET ROCK NAILER Chiki Byrd PT documented in this encounterThe [facility]07-08-2022 Miscellaneous Notes* Telephone Encounter - [...] on driving. Please advise. documented in this encounterThe [facility]07-01-2022 History of Present illness Narrative* [...] THERAPY EVALUATION PLAN OF CARE: Assessment: Richard Szymanski presents with diagnosis of abnormality of gait [...] of Care: created on 01/12/22 through 03/15/22 Kay in home exercise program. Patient will demonstrate [...] Planned: 16 Planned Treatment Interventions: Therapeutic exercise (73713);Neuromuscular re- education (65948);Gait Training (85580);Patient/Family/Caregiver Education PLAN FOR NEXT VISIT: Review HEP and progress exercises. May add strengthening and balance activities. Further assess falls history. Patient demonstrates good understanding of plan of care and treatment. The above goals and plan of care were discussed and agreed upon by patient/family. SUBJECTIVE: Richard Szymanski is a 76 year old male seen [...] Rosa Elena Poon PT documented in this encounterThe [facility]07-01-2022 Miscellaneous Notes* Telephone Encounter - [...] Pending consult. Please advise documented in this encounterThe [facility]06-29-2022 Miscellaneous Notes* Telephone Encounter - [...] his syncope/collapse. Thank you! documented in this encounterThe [facility]06-29-2022 Miscellaneous Notes* Result QuickNote - Justina Hadley APRN.CNP - 01/10/2022 11:33 AM EDT Please call patient and notify him. Echocardiogram is stable. Valve replacement function is stable.No cardiac structure/function changes to explain his syncope/collapse. Thank you! documented in this encounterThe [facility]06-24-2022 History of Present illness Narrative* [...] shared medical record. REFERRING PHYSICIAN: Abdulaziz Caldera [id number] [facility] [address] Accompanied by: Spouse ASSESSMENT: 76 year old [...] evaluation of folllow up after hospitalization in [facility]. he was admitted because of syncopal [...] others [facility] staying in the house by [...] delayed closure on 05/28/18. Dr. Obregon at [facility] COLONOSCOPY 10/10/2021 repeat in 3 years COLONOSCOPY [...] by mouth once daily. blood sugar diagnostic (Genapsys ULTRA TEST) test strip Test blood sugar(s) [...] gait ,unsteady Cannot tandem Tamie Kaur M.D. [facility] [place] Department of Neurology January 05, 2022 Total [...] lights on at night. documented in this encounterThe [facility]06-21-2022 Miscellaneous Notes* Telephone Encounter - Justina Martinez LPN - 01/02/2022 8:06 AM EDT I spoke to and informed him of Justina's response to lipid panel results. Patient voiced understanding. Justina Martinez LPN * Telephone Encounter - Justina Martinez LPN - 01/02/2022 7:43 AM EDT ----- Message from Justina Hadley APRN.KOSTAS sent at 01/02/2022 7:38 AM EDT ----- Please call patient and notify him cholesterol has good control. Thank you! documented in this encounterThe [facility]06-20-2022 History of Present illness Narrative* Abdulaziz Caldera MD - 01/01/2022 10:20 AM EDT Chief Complaint Patient presents with: Hospital Follow Up: [facility] discharged 12/29/21 HPI Richard Szymanski is a 76 year old male who presents here today for Hospital Discharge Follow up. Accompanied today by his . Patient admitted to [facility] from 12/27 to 12/29 after presenting to the [facility] ED after being found slumped over his tractor at home earlier in the afteernoon. Had been working outside for unknown period of time. Had only eaten cookies and milk that day. Heat index over 100. Back to baseline at the time of evaluation by hospitalist at [facility]. Found to have leukocytosis at [facility] and elevated lactic acid level. Noted [...] echo since it was not completed at [facility]. No other changes to regimen. Patient incontinent [...] with long-term current use of insulin(HCC) 06/20/2016 Previous Surgical History PAST SURGICAL HISTORY Procedure Laterality Date ABDOMINAL SURGERY HX AMPUTATION METATARSAL+TOE,SINGLE Right 05/25/2018 with delayed closure on 05/28/18. Dr. Obregon at [facility] COLONOSCOPY 10/10/2021 repeat in 3 years COLONOSCOPY [...] by mouth once daily. blood sugar diagnostic (Genapsys ULTRA TEST) test strip Test blood sugar(s) [...] Completed PNEUMOCOCCAL: 65+ Completed Data reviewed MMSE (see letters) ASSESSMENT/PLAN: 1. Syncope and collapse [...] SCRN Abdulaziz Caldera MD documented in this encounterThe [facility]06-20-2022 Instructions* Patient Instructions* Justina Hadley APRN.LIABILITY CLAIMS REPRESENTATIVE - 01/01/2022 9:05 AM EDT High Blood [...] risk for high blood pressure. Developed by [employer]. Published by [employer]. Copyright 2014 [employer] and/or one of its subsidiaries. All rights reserved. documented in this encounterThe [facility]06-[facility]-2022 History of Present illness Narrative* Justina Hadley APRN.CNP - 01/01/2022 8:57 AM EDT Chief Complaint Patient presents with: Follow Up: 6 mo History of Present Illness: Richard Szymanski is a 76 year old male who presents for routine follow up. 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 His accompanies him for his office visit today. They bothexplain to me he was hospitalized at [facility] for 2 days last week for syncope/collapse. [...] LE swelling. Records have been requested from [facility]. He is unsure of what testing was completed. An echocardiogram was ordered at his last office visit with me.If this was not completed at [facility], I recommend this be completed for further cardiac evaluation. PAST MEDICAL HISTORY Diagnosis Date Cholelithiasis 09/25/2013 Chronic neutrophilia Benign-Dr. 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 Dr. Obregon at [facility] COLONOSCOPY 10/10/2021 repeat in 3 years COLONOSCOPY [...] daily. 90 tablet 3 blood sugar diagnostic ([employer] ULTRA TEST) test strip Test blood sugar(s) [...] mL injection (DEFINITY) INTRAVENOUS DIRECTED PRN Justina Hadley APRN.LIABILITY CLAIMS REPRESENTATIVE sodium chloride 0.9 % (flush) 10 mL (BD POSIFLUSH) 10 mL INTRAVENOUS DIRECTED PRN Justina Hadley APRN.LIABILITY CLAIMS REPRESENTATIVE Review of Systems Constitutional: Negative for chills, [...] BP Position BP Site BP Cuff Size 01/01/22854 -- -- 147/74 60 Sitting Right Arm [...] MRI of his head CAD -MILD on [facility] 2004 -stress testing 2013 with no obvious [...] SVT -no symptomatic recurrence -Continue metoprolol PE -2013, unprovoked -has been recommended life long anticoagulation [...] 01, 2022, 8:57 AM documented in this encounterThe [facility]06-[facility] Note. MICRO - Microbiology PROCEDURE: Blood Culture (bacterial) [*1] SOURCE: Blood BODY SITE: COLLECTED DATE/TIME: 12/27/2021 17:43 EDT RECEIVED DATE/TIME: 12/28/2021 14:37 EDT START DATE/TIME: 12/28/2021 14:37 EDT FREE TEXT SOURCE: FINAL REPORTS Final Report [] Verified Date/Time/Personnel: 12/31/2021 07:29 EDT Staphylococcus epidermidis Isolated from anaerobe bottle only. Refer to previous culture for susceptibility. [id number] PRELIMINARY REPORTS Preliminary Report [] Verified Date/Time/Personnel: 12/30/2021 09:39 EDT Staphylococcus epidermidis Isolated from anaerobe bottle only. Refer to previous culture for susceptibility. [id number] Preliminary Report [] Verified Date/Time/Personnel: 12/28/2021 15:59 EDT Culture has been received in lab and is no growth to date. Routine cultures are held for 5 days. STAINS GSANA [] Verified Date/Time/Personnel: 12/29/2021 14:08 EDT Gram Positive Cocci in clusters Performing Locations *1: This test was performed at: [facility], [address] [place] [address], [facility] , [facility] ([place])12-31-2021 Note. MICRO - Microbiology PROCEDURE: Blood Culture [...] Locations *1: This test was performed at: [address], [facility]- , [facility] ([place])12-27-2021 SARS-CoV-2 (COVID-19) RNA ANGELY+probe Ql (Nph)Positive 2 *ABN* (12/27/21 5:43 PM)AO Auto Urine SSComment on above:Result Comment: positive covid cvrb s. tona Evaluation + Plan note Diagnostic Tests Pending * Urinalysis 12/27/21 * Blood Culture (bacterial) 12/27/21 * Blood Culture (bacterial) 12/27/21 [facility] 06-02-2022 History of Present illness Narrative* Abdulaziz Caldera MD - 12/14/2021 3:13 PM EDT Chief Complaint Patient presents with: Covid Follow Up HPI Richard Szymanski is a 76 year old male who presents here today for Above Complaints.. Patient positive for COVID in the [facility] ER last week on 12/06. Spoke with [...] Benign-Dr. 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 Dr. Obregon at [facility] COLONOSCOPY 10/10/2021 repeat in 3 years COLONOSCOPY [...] by mouth once daily. blood sugar diagnostic ([employer] ULTRA TEST) test strip Test blood sugar(s) [...] detail. Abdulaziz Caldera MD documented in this encounterThe [facility]05-27-2022 History of Present illness Narrative* [...] Patient consents to the visit HPI Richard Szymanski is a 76 year old male who presents here today for Above Complaints.. Patient evaluated at [facility] ER on 12/06 for complaint of generalized weakness, cough, and feeling off balance and developed cough which started on 12/04. Denied other COVID symptoms at that time. Lab workup in the ER was unremarkable aside from positive COVID test and INR of 3.3. UA unremarkable. CXR showed some ill defined densities in RLL which was likely 2/2 COVID infection. [place] to be well enough and discharged home [...] with long-term current use of insulin([facility]) 06/20/2016 Previous Surgical History PAST SURGICAL HISTORY Procedure Laterality Date ABDOMINAL SURGERY HX AMPUTATION METATARSAL+TOE,SINGLE Right 05/25/2018 with delayed closure on 05/28/18. Dr. Obregon at [facility] COLONOSCOPY 10/10/2021 repeat in 3 years COLONOSCOPY [...] by mouth once daily. blood sugar diagnostic ([employer]UCH ULTRA TEST) test strip Test blood sugar(s) [...] these interactions. Not interested in driving to [facility] for IV ab. Since his symptoms are mild, he would prefer to rest at home. Discussed risks and benefits of treatment and that he is high risk for severe infection. Red flags for re-assessment reviewed with patient in detail. I spent a total of 25 minutes on the date of the service which included preparing to see the patient, [id number] patient care, completing clinical documentation, obtaining and/or reviewing separately obtained history, performing a medically appropriate examination, counseling and educating the pat ient/family/caregiver and ordering medications, tests, or procedures. Abdulaziz Caldera MD documented in this encounterThe [facility]05-27-2022 Miscellaneous Notes* Telephone Encounter - Abdulaziz Caldera MD - 12/08/2021 4:05 PM EDT Scheduled TE now. * Telephone Encounter - Rebecca Esteban LPN - 12/08/2021 3:54 PM EDT Patient telephoned. Declines being treated in the hospital for Covid. States he is unable to use his for a virtual visit. Requesting if he could do a telephone visit. Rebecca Esteban LPN * Telephone Encounter - Abdulaziz Caldera MD - 12/08/2021 3:35 PM EDT Was he treated while he was in the hospital for COVID? Please pull ER report. Needs VV with one of our providers or with express care online. * Telephone Encounter - Rosa Elena Martinez Pss - 12/08/2021 2:16 PM EDT Patient called stating he was at [facility] ER on 12/06. Tested positive for covid. Patient was informed tocontact the office within 5 days to inform. Please advise patient when he can be seen in office. documented in this encounterThe [facility] Of [facility]05-09-2022 Miscellaneous Notes* Telephone Encounter - Eulalia Codyc - 11/20/2021 9:49 AM EDT Patient has been identified by name and date of : Yes Pending Prescriptions Disp Refills METFORMIN ER 500 MG 24 HR TABLET,EXTENDED RELEASE Sig: Take 1 tablet by mouth daily with breakfast. NUHA: No OMAR-09/06/21 Labs-08/30/21 NOV-03/07/22 RX INSTRUCTIONS: Patient aware RX will be sent to pharmacy. No need to notify patient. Eulalia Gaston [employer] documented in this encounterThe [facility]04-11-2022 Instructions* Patient Instructions* Marcella Park PA-C - 10/23/2021 1:25 PM EDT -Recommend daily fiber supplement and plenty of fluids The following instructions are important for you related to your office visit today with the [facility]. INSTRUCTIONS FOR DIVERTICULA I recommend [...] you should contact our office immediately @ [phone] and ask to be transferred to the General Surgery department. The following instructions are important for you related to your office visit today with the [facility]. INSTRUCTIONS FOLLOWING A POLYP [...] you should contact our office immediately @ [phone] and ask to be transferred to the General Surgery department. documented in this encounterThe [facility]04-11-2022 History of Present illness Narrative* Marcella Park PA-C - 10/23/2021 1:09 PM EDT FOLLOW UP VISIT - ENDOSCOPY NAME: [facility] NO.: [id number] DATE OF SERVICE: 10/23/2021 : 1945 REFERRING [...] which included preparing to see the patient, [id number] patient care, completing clinical documentation, obtaining and/or reviewing separately obtained history, counseling and educating the patient/family/caregiver, communicating with other HCPs (not separately reported), independently interpreting results (not separately reported) and communicating results to the patient/family/caregiver. Marcella Park PA-C documented in this encounterThe [facility]03-29-2022 Nurse Note* Caroline Larkin RN [...] RN - 10/10/2021 8:52 AM EDT [facility] PRE-OP NURSING HAND OFF NOTE SBAR Hand off given to Brandi Brown RN. Hand off was communicated verbally and at the patient's bedside and all questions were answered. Caroline Larkin RN documented in this encounterThe [facility]03-29-2022 History and physical note * [...] SIGNATURE: Richard Jones MD PATIENT NAME: Richard Szymanski DATE: October 10, 2021 TIME: 8:44 AM * Richard Jones MD - 10/10/2021 8:15 AM EDT Images from the original note were not included. HISTORY AND PHYSICAL Richard Szymanski 1945 REFERRING PHYSICIAN: Abdulaziz Caldera,* CHIEF COMPLAINT: [...] Benign-Dr. 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 Dr. Obregon at [facility] COLONOSCOPY FLX DX W/COLLJ SPEC WHEN PFRMD 03/12/11 DEBRIDEMENT OF SKIN, FULL THIC 3 LEFT GROIN DEBRIDEMENT OPEN WOUND 20 SQ [...] 2005 Repair of Aortic Value/Thoracic anerusym repair CURRENT [...] by mouth once daily. blood sugar diagnostic ([employer]UCH ULTRA TEST) test strip Test blood sugar(s) [...] and reviewed by me Nursing Notes: Cortney StarrNARENDRA 08/16/2021 8:38 AM Signed REVIEW OF SYSTEMS: [...] patient was offered a [facility]/procedure at [facility]. 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 Patient aware RX will be sent to pharmacy. No need to notify patient. Violette Call Pss documented in this encounterThe [facility]03-23-2022 Miscellaneous Notes* Telephone Encounter - [...] advise, Halima Diaz RN documented in this encounterThe [facility]02-02-2022 Miscellaneous Notes* Telephone Encounter - Garland Vicente - 08/16/2021 9:36 AM EST 10-10-2021 Colon [facility] documented in this encounterThe [facility] Of [facility]01-13-2022 NoteHNO ID: [id number] Author: REY Burt Service: Radiology Author Type: Stockroom Inventory Clerk Type: Progress Notes Filed: 07/27/2021 10:50 AM [...] Cardiac SIGNATURE: REY Burt PATIENT NAME: Richard Szymanski DATE: July 27, 2021 TIME: 10:49 [id number] History of Past illness Narrative* Problem Noted [...] of this encounter (statuses as of 10/04/2021) [facility]04[facility] of Past illness Narrative* [...] of this encounter (statuses as of 10/05/2021) [facility] Narrative* [...] of this encounter (statuses as of 10/11/2021) [facility] Narrative* [...] of this encounter (statuses as of 10/16/2021) [facility] Narrative* [...] of this encounter (statuses as of 10/27/2021) [facility] Narrative* [...] of this encounter (statuses as of 11/20/2021) [facility] Narrative* [...] of this encounter (statuses as of 12/12/2021) [facility] Narrative* [...] of this encounter (statuses as of 12/13/2021) [facility] Narrative* [...] of this encounter (statuses as of 12/14/2021) [facility] Narrative* [...] of this encounter (statuses as of 01/01/2022) [facility] Narrative* [...] of this encounter (statuses as of 01/02/2022) [facility] Narrative* [...] of this encounter (statuses as of 01/02/2022) [facility] Narrative* [...] of this encounter (statuses as of 01/06/2022) [facility] Narrative* [...] of this encounter (statuses as of 01/10/2022) [facility] Narrative* [...] of this encounter (statuses as of 01/11/2022) [facility] Narrative* [...] of this encounter (statuses as of 01/12/2022) [facility] Narrative* [...] of this encounter (statuses as of 01/12/2022) [facility] Narrative* [...] of this encounter (statuses as of 01/19/2022) [facility] Narrative* [...] of this encounter (statuses as of 01/23/2022) [facility] Narrative* [...] of this encounter (statuses as of 01/25/2022) [facility] Narrative* [...] of this encounter (statuses as of 01/30/2022) [facility] Narrative* [...] of this encounter (statuses as of 02/01/2022) [facility] Narrative* [...] of this encounter (statuses as of 02/02/2022) [facility] Narrative* [...] of this encounter (statuses as of 02/02/2022) [facility] N[facility]* [...] of this encounter (statuses as of 02/06/2022) [facility] Narrative* [...] of this encounter (statuses as of 02/09/2022) [facility]* [...] of this encounter (statuses as of 02/14/2022) [facility]* [...] of this encounter (statuses as of 02/26/2022) [facility] Narrative* Problem Noted Date Resolved Date S/P aortic valve replacement 10/25/201401/2016 Pulmonary embolus, right 09/25/2013052 018 Callus of foot 09/25/2013 07/20/2019 Tinea of nail 09/25/2013 07/20/2019 Encounter for monitoring Coumadin therapy 201307/20/2019 Overview: INR goal 2.5-3.5 Morbid obesity with BMI of 40.0-44.9, adult 04/12/20122018 Skin lesion 03/21/2011 06/20/2016 Cellulitis and abscess 11/22/2010 6 Non-healing surgical wound 09/19/201006/20 Abscess 09/08/2010 06/20/2016 Sciatica 05/04/2009 06/20/2016 documented as of this encounter (statuses as of 03/02/2022) [facility] Narrative* [...] of this encounter (statuses as of 03/05/2022) [facility]* [...] of this encounter (statuses as of 03/07/2022) [facility]* [...] of this encounter (statuses as of 03/08/2022) [facility]* [...] of this encounter (statuses as of 03/09/2022) [facility]* [...] of this encounter (statuses as of 03/12/2022) [facility]* [...] of this encounter (statuses as of 03/16/2022) [facility]* [...] of this encounter (statuses as of 03/23/2022) [facility]* [...] of this encounter (statuses as of 04/03/2022) [facility]* [...] of this encounter (statuses as of 04/04/2022) [facility]* [...] of this encounter (statuses as of 04/06/2022) [facility]* [...] of this encounter (statuses as of 04/17/2022) [facility]* [...] of this encounter (statuses as of 04/17/2022) [facility]* [...] of this encounter (statuses as of 04/19/2022) [facility]* [...] of this encounter (statuses as of 05/16/2022) [facility]* [...] of this encounter (statuses as of 06/25/2022) [facility]* Problem Noted Date Resolved Date S/P aortic valve replacement 10/25/201401/2016 Pulmonary embolus, right 09/25/201311/13 018 Callus of foot 09/25/2013 07/20/2019 Tinea of nail 09/25/2013 07/20/2019 Encounter for monitoring Coumadin therapy 201307/20/2019 Overview: INR goal 2.5-3.5 Morbid obesity with BMI of 40.0-44.9, adult 04/1 12/201208/19/2017 Skin lesion 03/21/2011 06/20/2016 Cellulitis and abscess 11/22/2010 6 Non-healing surgical wound 09/19/201006/20 Abscess 09/08/2010 06/20/2016 Sciatica 05/04/2009 06/20/2016 documented as of this encounter (statuses as of 07/14/2022) [facility] N[facility]* [...] of this encounter (statuses as of 07/15/2022) [facility]* [...] of this encounter (statuses as of 07/18/2022) [facility]* [...] of this encounter (statuses as of 07/18/2022) [facility]* [...] of this encounter (statuses as of 07/19/2022) [facility]* [...] of this encounter (statuses as of 07/20/2022) [facility]* [...] of this encounter (statuses as of 07/25/2022) [facility]* [...] of this encounter (statuses as of 07/26/2022) [facility]* [...] of this encounter (statuses as of 07/27/2022) [facility]* Problem Noted Date Resolved Date S/P aortic valve replacement 10/25/201401/2016 Pulmonary embolus, right 09/25/2013 02/05/2 018 Callus of foot 09/25/2013 07/20/2019 Tinea of nail 09/25/2013 07/20/2019 Encounter for monitoring Coumadin therapy 201307/20/2019 Overview: INR goal 2.5-3.5 Morbid obesity with BMI of 40.0-44.9, adult 04/12/201208/19/2017 Skin lesion 03/21/2011 06/20/2016 Cellulitis and abscess 11/22/2010 6 Non-healing surgical wound 09/19/201006/20 Abscess 09/08/2010 06/20/2016 Sciatica 05/04/2009 06/20/2016 documented as of this encounter (statuses as of 07/31/2022) [facility]* [...] of this encounter (statuses as of 08/06/2022) [facility]* [...] of this encounter (statuses as of 08/07/2022) [facility]* [...] of this encounter (statuses as of 08/09/2022) [facility]* [...] of this encounter (statuses as of 08/14/2022) [facility]* [...] of this encounter (statuses as of 08/16/2022) [facility]* [...] of this encounter (statuses as of 08/28/2022) [facility]* [...] of this encounter (statuses as of 09/07/2022) [facility]* [...] of this encounter (statuses as of 09/09/2022) [facility]* [...] of this encounter (statuses as of 09/25/2022) [facility]* [...] of this encounter (statuses as of 10/23/2022) [facility]* [...] of this encounter (statuses as of 11/20/2022) [facility]* [...] of this encounter (statuses as of 11/20/2022) [facility]* [...] of this encounter (statuses as of 12/13/2022) [facility]* [...] of this encounter (statuses as of 12/14/2022) [facility] History of Past illness Narrative* [...] of this encounter (statuses as of 12/18/2022) [facility] History of Past illness Narrative* [...] of this encounter (statuses as of 12/25/2022) [facility] History of Past illness Narrative* [...] of this encounter (statuses as of 12/27/2022) [facility] History of Past illness Narrative* [...] of this encounter (statuses as of 12/31/2022) [facility] History of Past illness Narrative* [...] of this encounter (statuses as of 01/03/2023) [facility] History of Past illness Narrative* [...] of this encounter (statuses as of 01/04/2023) [facility] History of Past illness Narrative* [...] of this encounter (statuses as of 01/04/2023) [facility] History of Past illness Narrative* [...] of this encounter (statuses as of 01/25/2023) [facility] History of Past illness Narrative* [...] of this encounter (statuses as of 01/29/2023) [facility] Diagnosis Type 2 diabetes mellitus with diabetic neuropathy, with long-term current use of insulin (HCC) Status post aortic valve repair Other postprocedural status Chronic anticoagulation Long-term (current) use of anticoagulants [facility] this [facility] Diagnosis Colon cancer screening Special screening for malignant neoplasms, colon documented [facility] this [facility] Diagnosis Colon cancer screening- Primary Special screening for malignant neoplasms, colon [facility] this [facility] Diagnosis Diverticulosis- Primary Diverticulosis of colon (without mention of hemorrhage) Cecal polyp [facility] Diagnosis COVID-19- Primary [facility] Diagnosis COVID-19- Primary [facility] Diagnosis Hyperlipidemia with target LDL less than 100- Primary Other and unspecified hyperlipidemia Primary hypertension Unspecified essential hypertension Thoracic aortic aneurysm without rupture (HCC) Thoracic aneurysm without mention of rupture Coronary artery disease involving [place] coronary artery of [place] heart without angina pectoris Syncope, unspecified syncope type Obesity, Class II, BMI 35-39.9 Obesity, unspecified [facility] Diagnosis Syncope and collapse- Primary Altered mental status, unspecified altered mental status type Urinary incontinence, unspecified type Benign prostatic hyperplasia with nocturia Nocturia Vitamin D deficiency, unspecified Wound of left lower extremity, initial encounter Encounter for screening for malignant neoplasm of prostate Special screening for malignant neoplasm of prostate [facility] Diagnosis Abnormality of gait due to impairment of balance- Primary Altered mental status, unspecified altered mental status type [facility] Diagnosis Chronic anticoagulation Long-term (current) use of anticoagulants Thoracic aortic aneurysm without rupture (HCC) Thoracic aneurysm without mention of rupture Status post aortic valve repair Other postprocedural status [facility] Diagnosis Type 2 diabetes mellitus with diabetic neuropathy, with long-term current use of insulin (HCC)- Primary [facility] Diagnosis Abnormality of gait due to impairment of balance- Primary [facility] Diagnosis Abnormality of gait due to impairment of balance- Primary [facility] Diagnosis Vitamin D deficiency Unspecified vitamin D deficiency [facility] Diagnosis Abnormality of gait due to impairment of balance- Primary [facility] Diagnosis Vitamin D deficiency Unspecified vitamin D deficiency [facility] Diagnosis Type 2 diabetes mellitus with stage 3 chronic kidney disease, with long-term current use of insulin (HCC) [facility] Diagnosis Abnormality of gait due to impairment of balance- Primary [facility] Diagnosis Type 2 diabetes mellitus with diabetic neuropathy, with long-term current use of insulin (HCC) [facility] Diagnosis Abnormality of gait due to impairment of balance- Primary [facility] Diagnosis Abnormality of gait due to impairment of balance- Primary [facility] Diagnosis Abnormality of gait due to impairment of balance- Primary [facility] Diagnosis Status post aortic valve repair Other postprocedural status Chronic anticoagulation Long-term (current) use of anticoagulants [facility] Diagnosis Generalized weakness- Primary Other malaise and fatigue Supratherapeutic INR Abnormal coagulation profile ANTHONY (acute kidney injury) ([facility]) Acute kidney failure, unspecified [facility] this [facility] Diagnosis Abnormality of gait due to impairment of balance- Primary [facility] Diagnosis Abnormality of gait due to impairment of balance- Primary [facility] Diagnosis Urinary incontinence, unspecified type [facility] Diagnosis Abnormality of gait due to impairment of balance- Primary [facility] Diagnosis Onychomycosis- Primary Dermatophytosis of nail Pain in toe of left foot Pain in limb Amputated toe of right foot ([facility]) Diabetic polyneuropathy associated with type 2 diabetes mellitus ([facility]) [facility] Diagnosis Generalized weakness- Primary Other malaise and fatigue Encounter for immunization Need for other specified prophylactic vaccination against single bacterial disease Mild depression Depressive disorder, not elsewhere classified [facility] Diagnosis Generalized anxiety disorder- Primary Polyneuropathy Unspecified hereditary and idiopathic peripheral neuropathy [facility] this [facility] Diagnosis Urinary incontinence, unspecified type [facility] Diagnosis Dizziness- Primary Dizziness and giddiness Chronic frontal sinusitis [facility] this [facility] Diagnosis Type 2 diabetes mellitus with diabetic neuropathy, with long-term current use of insulin ([facility])- Primary Diabetic polyneuropathy associated with type 2 diabetes mellitus ([facility]) NSTEMI (non-ST elevated myocardial infarction) ([facility]) Acute myocardial infarction, subendocardial infarction, episode of [...] long-term current use of insulin ([facility]) 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, macular edema presence unspecified ([facility]) [facility]* Diagnosis Driving safety issue- Primary Other specified personal history presenting hazards to health documented in this encounter [facility] note* Diagnosis Onychomycosis- Primary Dermatophytosis of nail Pain in toe of left foot Pain in limb Amputated toe of right foot ([facility]) Diabetic polyneuropathy associated with type 2 diabetes mellitus ([facility]) [facility]* Diagnosis Spinal stenosis, lumbar region, without neurogenic claudication- Primary Primary osteoarthritis of both knees Primary localized osteoarthrosis, lower leg documented in this encounter [facility] note* Diagnosis Spinal stenosis, lumbar region, without neurogenic claudication- Primary Primary osteoarthritis of both knees Primary localized osteoarthrosis, lower leg [facility]* Diagnosis Spinal stenosis, lumbar region, without neurogenic claudication- Primary Primary osteoarthritis of both knees Primary localized osteoarthrosis, lower leg [facility]* Diagnosis Spinal stenosis, lumbar region, without neurogenic claudication- Primary Primary osteoarthritis of both knees Primary localized osteoarthrosis, lower leg documented in this encounter [facility] note* Diagnosis Spinal stenosis, lumbar region, without neurogenic claudication- Primary Primary osteoarthritis of both knees Primary localized osteoarthrosis, lower leg documented in this encounter [facility] note* Diagnosis Spinal stenosis, lumbar region, without neurogenic claudication- Primary Primary osteoarthritis of both knees Primary localized osteoarthrosis, lower leg [facility] Narrative No data available for this section [facility] Hospital Discharge instructions No data available for this section [facility] Progress note No data available for this section [facility] Reason for referral (narrative)* Outpatient Procedure (Routine) - Closed Specialty Diagnoses / Procedures Referred By Contcarlos t Referred To [facility] Diagnoses Colon cancer screening Procedures COLONOSCOPY SCREENING COLONOSCOPY FLX DX W/COLLJ SPEC WHEN Marcella Alatorre PA-C [address] [place] [address] [facility] [address] [address] Referral ID Status Reason Start Date Expiration Date V isits Requested Visits Authorized [id number] Closed Auto-Generate d Referral 08/16/2021 08/16/2022 1 1 [facility] for referral (narrative)* Outpatient Procedure (Routine) - Closed Specialty Diagnoses / Procedures Referred By Contcarlos t Referred To Contact [facility] Diagnoses Colon cancer screening Procedures COLONOSCOPY SCREENING COLONOSCOPY FLX DX W/COLLJ SPEC WHEN Marcella Alatorre PA-C [address] [place] [address] [facility] [address] [address] Referral ID Status Reason Start Date Expiration Date V isits Requested Visits Authorized [id number] Closed Auto-Generate d Referral 08/16/2021 08/16/2022 1 1 [facility] for visit Narrative* Outpatient Procedure (Routine) - Closed Specialty Diagnoses / Procedures Referred By Contac t Referred To Contact [facility] Diagnoses Colon cancer screening Procedures COLONOSCOPY SCREENING COLONOSCOPY FLX DX W/COLLJ SPEC WHEN Marcella Alatorre PA-C [address] [place] [address] [facility] [address] [address] Referral ID Status Reason Start Date Expiration Date V isits Requested Visits Authorized [id number] Closed Auto-Generate d Referral 08/16/2021 08/16/2022 1 1 [facility] for visit Narrative* Outpatient Procedure (Routine) - Closed Specialty Diagnoses / Procedures Referred By Contac t Referred [facility] Diagnoses Chronic anticoagulation Thoracic aortic aneurysm without rupture (HCC) Status post aortic valve repair Procedures ECHO TTE W/DOPPLER, COMPLETE Justina Hadley, BUS DRIVER SUPERVISOR.LIABILITY CLAIMS REPRESENTATIVE [address] [place] [address] [facility] [place] [address] [place] [address] Referral ID Status Reason Start Date Expiration Date V isits Requested Visits Authorized [id number] Closed Auto-Generate d Referral 07/03/2021 07/03/2022 1 1 [facility] Advance Directives No Advanced Directives Records FoundDocuments on File Type Date Recorded Patient Carton Stamper Expl anation Advance Directive(s) 09/12/2021 7:14 AM Documents on File Type Date Recorded Patient Carton Stamper Expl anation Advance Directive(s) 09/12/2021 7:14 AM [...] Diagnoses Driving safety issue Procedures CONSULT TO DIE TROUBLE SHOOTER OCCUPATIONAL THERAPY EVAL HIGH COMPLEX 60 MINS Tamie Kaur MD [address] [place] [address] [facility] [address] [address] Referral ID Status Reason Start Date Expiration Date Visits Requested Visits Authorized [id number] Authorized PCP Requested Referral Auto-Generate d Referral 09/07/2022 09/07/2023 99 99 Specialty Diagnoses / Procedures Referred By Linn carrillo Referred To Contact [facility] Diagnoses Polyneuropathy Procedures CONSULT TO PHYSICAL THERAPY PHYSICAL THERAPY EVALUATION HIGH COMPLEX 45 MINS Tamie Kaur MD [address] [place] [address] [facility] [address] [address] Referral ID Status Reason Start Date Expiration Date Visits Requested Visits Authorized [id number] Authorized PCP Requested Referral Auto-Generate d Referral 04/17/2022 04/17/2023 99 99 Specialty Diagnoses / Procedures Referred By Linn carrillo Referred To Contact Psychology Diagnoses Generalized anxiety disorder Procedures CONSULT TO PSYCHOLOGY OFFICE/OUTPATIENT [facility] MDM 60-74 MINUTES Tamie Kaur MD [address] [place] [id number] Referral ID Status Reason Start Date Expiration Date Visits Requested Visits Authorized [id number] Pending Review PCP Requested Referral 04/17/2022 04/17/2023 1 1 Specialty Diagnoses / Procedures Referred By Linn carrillo Referred To Contact Podiatry Diagnoses Type 2 diabetes mellitus with diabetic neuropathy, with long-term current use of insulin (HCC) Procedures CONSULT TO PODIATRY OFFICE/OUTPATIENT [facility] 60-74 MINUTES PodlogRoselia hernandez APRN.[facility] [address] [place] [address] Referral ID Status Reason Start Date Expiration Date Visits Requested Visits Authorized [id number] Authorized PCP Requested Referral 01/12/2022 01/11/2023 1 1 Specialty Diagnoses / Procedures Referred By Linn carrillo Referred To Contact [facility] Diagnoses Altered mental status, unspecified altered mental status type Procedures CONSULT TO SPEECH THERAPY OFFICE/OUTPATIENT [facility] MDM 60-74 MINUTES Tamie Kaur MD [address] [place] [address] [facility] [address] [address] Referral ID Status Reason Start Date Expiration Date Visits Requested Visits Authorized [id number] Authorized Auto-Generat ed Referral 01/05/2022 01/05/2023 99 99 Specialty Diagnoses / Procedures Referred By Linn carrillo Referred To Contact [facility] Diagnoses Abnormality of gait due to impairment of balance Procedures CONSULT TO PHYSICAL THERAPY PHYSICAL THERAPY EVALUATION HIGH COMPLEX 45 MINS Tamie Kaur MD [address] [place] [address] [facility] [place] [address] [place] [address] Referral ID Status Reason Start Date Expiration Date Visits Requested Visits Authorized [id number] Authorized PCP Requested Referral Auto-Generate d Referral 01/05/2022 01/05/2023 99 99 Specialty Diagnoses / Procedures Referred By Contac t Referred To Contact [facility] Diagnoses Altered mental status, unspecified altered mental status type Procedures EPIL EEG ROUTINE ELECTROENCEPHALOGRAM REC COMA/SLEEP ONLY Tamie Kaur MD [address] [place] [address] [facility] [place] [address] [place] [address] Referral ID Status Reason Start Date Expiration Date Visits Requested Visits Authorized [id number] Authorized Auto-Generat ed Referral 01/05/2022 01/05/2023 1 1 Specialty Diagnoses / Procedures Referred By Contac t Referred To Contact Neurology Diagnoses Altered mental status, unspecified altered mental status type Procedures CONSULT TO NEUROLOGY OFFICE/OUTPATIENT [facility] 60-74 MINUTES Abdulaziz Caldera MD [address] [place] [address] Referral ID Status Reason Start Date Expiration Date Visits Requested Visits Authorized [id number] Authorized PCP Requested Referral 01/01/2022 01/01/2023 1 [...] or prosecute any alcohol or drug abuse patient.[facility] the event this information is protected by the Federal Confidentiality of Alcohol and Drug Abuse Patient Records regulations: The Federal rules restrict any use of the information to criminally investigate or prosecute any alcohol or drug abuse patient.[facility] the event this information is protected by the Federal Confidentiality of Alcohol and Drug Abuse Patient Records regulations: The Federal rules restrict any use of the information to criminally investigate or prosecute any alcohol or drug abuse patient.[facility] the event this information is protected by the Federal Confidentiality of Alcohol and Drug Abuse Patient Records regulations: The Federal rules restrict any use of the information to criminally investigate or prosecute any alcohol or drug abuse patient.[facility] the event this information is protected by the Federal Confidentiality of Alcohol and Drug Abuse Patient Records regulations: The Federal rules restrict any use of the information to criminally investigate or prosecute any alcohol or drug abuse patient.[facility] the event this information is protected by the Federal Confidentiality of Alcohol and Drug Abuse Patient Records regulations: The Federal rules restrict any use of the information to criminally investigate or prosecute any alcohol or drug abuse patient.[facility] the event this information is protected by the Federal Confidentiality of Alcohol and Drug Abuse Patient Records regulations: The Federal rules restrict any use of the information to criminally investigate or prosecute any alcohol or drug abuse patient.[facility] the event this information is protected by the Federal Confidentiality of Alcohol and Drug Abuse Patient Records regulations: The Federal rules restrict any use of the information to criminally investigate or prosecute any alcohol or drug abuse patient.[facility] the event this information is protected by the Federal Confidentiality of Alcohol and Drug Abuse Patient Records regulations: The Federal rules restrict any use of the information to criminally investigate or prosecute any alcohol or drug abuse patient.[facility] the event this information is protected by the Federal Confidentiality of Alcohol and Drug Abuse Patient Records regulations: The Federal rules restrict any use of the information to criminally investigate or prosecute any alcohol or drug abuse patient.[facility] the event this information is protected by the Federal Confidentiality of Alcohol and Drug Abuse Patient Records regulations: The Federal rules restrict any use of the information to criminally investigate or prosecute any alcohol or drug abuse patient.[facility] the event this information is protected by the Federal Confidentiality of Alcohol and Drug Abuse Patient Records regulations: The Federal rules restrict any use of the information to criminally investigate or prosecute any alcohol or drug abuse patient.[facility] the event this information is protected by the Federal Confidentiality of Alcohol and Drug Abuse Patient Records regulations: The Federal rules restrict any use of the information to criminally investigate or prosecute any alcohol or drug abuse patient.[facility] the event this information is protected by the Federal Confidentiality of Alcohol and Drug Abuse Patient Records regulations: The Federal rules restrict any use of the information to criminally investigate or prosecute any alcohol or drug abuse patient.[facility] the event this information is protected by the Federal Confidentiality of Alcohol and Drug Abuse Patient Records regulations: The Federal rules restrict any use of the information to criminally investigate or prosecute any alcohol or drug abuse patient.[facility] the event this information is protected by the Federal Confidentiality of Alcohol and Drug Abuse Patient Records regulations: The Federal rules restrict any use of the information to criminally investigate or prosecute any alcohol or drug abuse patient.[facility] the event this information is protected by the Federal Confidentiality of Alcohol and Drug Abuse Patient Records regulations: The Federal rules restrict any use of the information to criminally investigate or prosecute any alcohol or drug abuse patient.[facility] the event this information is protected by the Federal Confidentiality of Alcohol and Drug Abuse Patient Records regulations: The Federal rules restrict any use of the information to criminally investigate or prosecute any alcohol or drug abuse patient.[facility] the event this information is protected by the Federal Confidentiality of Alcohol and Drug Abuse Patient Records regulations: The Federal rules restrict any use of the information to criminally investigate or prosecute any alcohol or drug abuse patient.[facility] the event this information is protected by the Federal Confidentiality of Alcohol and Drug Abuse Patient Records regulations: The Federal rules restrict any use of the information to criminally investigate or prosecute any alcohol or drug abuse patient.[facility] the event this information is protected by the Federal Confidentiality of Alcohol and Drug Abuse Patient Records regulations: The Federal rules restrict any use of the information to criminally investigate or prosecute any alcohol or drug abuse patient.[facility] the event this information is protected by the Federal Confidentiality of Alcohol and Drug Abuse Patient Records regulations: The Federal rules restrict any use of the information to criminally investigate or prosecute any alcohol or drug abuse patient.[facility] the event this information is protected by the Federal Confidentiality of Alcohol and Drug Abuse Patient Records regulations: The Federal rules restrict any use of the information to criminally investigate or prosecute any alcohol or drug abuse patient.[facility] the event this information is protected by the Federal Confidentiality of Alcohol and Drug Abuse Patient Records regulations: The Federal rules restrict any use of the information to criminally investigate or prosecute any alcohol or drug abuse patient.[facility] CenterIn the event this information is protected by the Federal Confidentiality of Alcohol and Drug Abuse Patient Records regulations: The Federal rules restrict any use of the information to criminally investigate or prosecute any alcohol or drug abuse patient.[facility] CenterIn the event this information is protected by the Federal Confidentiality of Alcohol and Drug Abuse Patient Records regulations: The Federal rules restrict any use of the information to criminally investigate or prosecute any alcohol or drug abuse patient.[facility] CenterIn the event this information is protected by the Federal Confidentiality of Alcohol and Drug Abuse Patient Records regulations: The Federal rules restrict any use of the information to criminally investigate or prosecute any alcohol or drug abuse patient.[facility] CenterIn the event this information is protected by the Federal Confidentiality of Alcohol and Drug Abuse Patient Records regulations: The Federal rules restrict any use of the information to criminally investigate or prosecute any alcohol or drug abuse patient.[facility] CenterIn the event this information is protected by the Federal Confidentiality of Alcohol and Drug Abuse Patient Records regulations: The Federal rules restrict any use of the information to criminally investigate or prosecute any alcohol or drug abuse patient.[facility] CenterIn the event this information is protected by the Federal Confidentiality of Alcohol and Drug Abuse Patient Records regulations: The Federal rules restrict any use of the information to criminally investigate or prosecute any alcohol or drug abuse patient.[facility] CenterIn the event this information is protected by the Federal Confidentiality of Alcohol and Drug Abuse Patient Records regulations: The Federal rules restrict any use of the information to criminally investigate or prosecute any alcohol or drug abuse patient.[facility] CenterIn the event this information is protected by the Federal Confidentiality of Alcohol and Drug Abuse Patient Records regulations: The Federal rules restrict any use of the information to criminally investigate or prosecute any alcohol or drug abuse patient.[facility] CenterIn the event this information is protected by the Federal Confidentiality of Alcohol and Drug Abuse Patient Records regulations: The Federal rules restrict any use of the information to criminally investigate or prosecute any alcohol or drug abuse patient.[facility] CenterIn the event this information is protected by the Federal Confidentiality of Alcohol and Drug Abuse Patient Records regulations: The Federal rules restrict any use of the information to criminally investigate or prosecute any alcohol or drug abuse patient.[facility] CenterIn the event this information is protected by the Federal Confidentiality of Alcohol and Drug Abuse Patient Records regulations: The Federal rules restrict any use of the information to criminally investigate or prosecute any alcohol or drug abuse patient.[facility] CenterIn the event this information is protected by the Federal Confidentiality of Alcohol and Drug Abuse Patient Records regulations: The Federal rules restrict any use of the information to criminally investigate or prosecute any alcohol or drug abuse patient.[facility] CenterIn the event this information is protected by the Federal Confidentiality of Alcohol and Drug Abuse Patient Records regulations: The Federal rules restrict any use of the information to criminally investigate or prosecute any alcohol or drug abuse patient.[facility] CenterIn the event this information is protected by the Federal Confidentiality of Alcohol and Drug Abuse Patient Records regulations: The Federal rules restrict any use of the information to criminally investigate or prosecute any alcohol or drug abuse patient.[facility] CenterIn the event this information is protected by the Federal Confidentiality of Alcohol and Drug Abuse Patient Records regulations: The Federal rules restrict any use of the information to criminally investigate or prosecute any alcohol or drug abuse patient.[facility] CenterIn the event this information is protected by the Federal Confidentiality of Alcohol and Drug Abuse Patient Records regulations: The Federal rules restrict any use of the information to criminally investigate or prosecute any alcohol or drug abuse patient.[facility] CenterIn the event this information is protected by the Federal Confidentiality of Alcohol and Drug Abuse Patient Records regulations: The Federal rules restrict any use of the information to criminally investigate or prosecute any alcohol or drug abuse patient.[facility] CenterIn the event this information is protected by the Federal Confidentiality of Alcohol and Drug Abuse Patient Records regulations: The Federal rules restrict any use of the information to criminally investigate or prosecute any alcohol or drug abuse patient.[facility] CenterIn the event this information is protected by the Federal Confidentiality of Alcohol and Drug Abuse Patient Records regulations: The Federal rules restrict any use of the information to criminally investigate or prosecute any alcohol or drug abuse patient.[facility] CenterIn the event this information is protected by the Federal Confidentiality of Alcohol and Drug Abuse Patient Records regulations: The Federal rules restrict any use of the information to criminally investigate or prosecute any alcohol or drug abuse patient.[facility] CenterIn the event this information is protected by the Federal Confidentiality of Alcohol and Drug Abuse Patient Records regulations: The Federal rules restrict any use of the information to criminally investigate or prosecute any alcohol or drug abuse patient.[facility] CenterIn the event this information is protected by the Federal Confidentiality of Alcohol and Drug Abuse Patient Records regulations: The Federal rules restrict any use of the information to criminally investigate or prosecute any alcohol or drug abuse patient.[facility] CenterIn the event this information is protected by the Federal Confidentiality of Alcohol and Drug Abuse Patient Records regulations: The Federal rules restrict any use of the information to criminally investigate or prosecute any alcohol or drug abuse patient.[facility] CenterIn the event this information is protected by the Federal Confidentiality of Alcohol and Drug Abuse Patient Records regulations: The Federal rules restrict any use of the information to criminally investigate or prosecute any alcohol or drug abuse patient.[facility] CenterIn the event this information is protected by the Federal Confidentiality of Alcohol and Drug Abuse Patient Records regulations: The Federal rules restrict any use of the information to criminally investigate or prosecute any alcohol or drug abuse patient.[facility] CenterIn the event this information is protected by the Federal Confidentiality of Alcohol and Drug Abuse Patient Records regulations: The Federal rules restrict any use of the information to criminally investigate or prosecute any alcohol or drug abuse patient.[facility] CenterIn the event this information is protected by the Federal Confidentiality of Alcohol and Drug Abuse Patient Records regulations: The Federal rules restrict any use of the information to criminally investigate or prosecute any alcohol or drug abuse patient.[facility] CenterIn the event this information is protected by the Federal Confidentiality of Alcohol and Drug Abuse Patient Records regulations: The Federal rules restrict any use of the information to criminally investigate or prosecute any alcohol or drug abuse patient.[facility] CenterIn the event this information is protected by the Federal Confidentiality of Alcohol and Drug Abuse Patient Records regulations: The Federal rules restrict any use of the information to criminally investigate or prosecute any alcohol or drug abuse patient.[facility] CenterIn the event this information is protected by the Federal Confidentiality of Alcohol and Drug Abuse Patient Records regulations: The Federal rules restrict any use of the information to criminally investigate or prosecute any alcohol or drug abuse patient.[facility] CenterIn the event this information is protected by the Federal Confidentiality of Alcohol and Drug Abuse Patient Records regulations: The Federal rules restrict any use of the information to criminally investigate or prosecute any alcohol or drug abuse patient.[facility] CenterIn the event this information is protected by the Federal Confidentiality of Alcohol and Drug Abuse Patient Records regulations: The Federal rules restrict any use of the information to criminally investigate or prosecute any alcohol or drug abuse patient.[facility] CenterIn the event this information is protected by the Federal Confidentiality of Alcohol and Drug Abuse Patient Records regulations: The Federal rules restrict any use of the information to criminally investigate or prosecute any alcohol or drug abuse patient.[facility] CenterIn the event this information is protected by the Federal Confidentiality of Alcohol and Drug Abuse Patient Records regulations: The Federal rules restrict any use of the information to criminally investigate or prosecute any alcohol or drug abuse patient.[facility] CenterIn the event this information is protected by the Federal Confidentiality of Alcohol and Drug Abuse Patient Records regulations: The Federal rules restrict any use of the information to criminally investigate or prosecute any alcohol or drug abuse patient.[facility] CenterIn the event this information is protected by the Federal Confidentiality of Alcohol and Drug Abuse Patient Records regulations: The Federal rules restrict any use of the information to criminally investigate or prosecute any alcohol or drug abuse patient.[facility] CenterIn the event this information is protected by the Federal Confidentiality of Alcohol and Drug Abuse Patient Records regulations: The Federal rules restrict any use of the information to criminally investigate or prosecute any alcohol or drug abuse patient.[facility] CenterIn the event this information is protected by the Federal Confidentiality of Alcohol and Drug Abuse Patient Records regulations: The Federal rules restrict any use of the information to criminally investigate or prosecute any alcohol or drug abuse patient.[facility] CenterIn the event this information is protected by the Federal Confidentiality of Alcohol and Drug Abuse Patient Records regulations: The Federal rules restrict any use of the information to criminally investigate or prosecute any alcohol or drug abuse patient.[facility] CenterIn the event this information is protected by the Federal Confidentiality of Alcohol and Drug Abuse Patient Records regulations: The Federal rules restrict any use of the information to criminally investigate or prosecute any alcohol or drug abuse patient.[facility] CenterIn the event this information is protected by the Federal Confidentiality of Alcohol and Drug Abuse Patient Records regulations: The Federal rules restrict any use of the information to criminally investigate or prosecute any alcohol or drug abuse patient.[facility] CenterIn the event this information is protected by the Federal Confidentiality of Alcohol and Drug Abuse Patient Records regulations: The Federal rules restrict any use of the information to criminally investigate or prosecute any alcohol or drug abuse patient.[facility] CenterIn the event this information is protected by the Federal Confidentiality of Alcohol and Drug Abuse Patient Records regulations: The Federal rules restrict any use of the information to criminally investigate or prosecute any alcohol or drug abuse patient.[facility] CenterIn the event this information is protected by the Federal Confidentiality of Alcohol and Drug Abuse Patient Records regulations: The Federal rules restrict any use of the information to criminally investigate or prosecute any alcohol or drug abuse patient.[facility] CenterIn the event this information is protected by the Federal Confidentiality of Alcohol and Drug Abuse Patient Records regulations: The Federal rules restrict any use of the information to criminally investigate or prosecute any alcohol or drug abuse patient.[facility] CenterIn the event this information is protected by the Federal Confidentiality of Alcohol and Drug Abuse Patient Records regulations: The Federal rules restrict any use of the information to criminally investigate or prosecute any alcohol or drug abuse patient.[facility] CenterIn the event this information is protected by the Federal Confidentiality of Alcohol and Drug Abuse Patient Records regulations: The Federal rules restrict any use of the information to criminally investigate or prosecute any alcohol or drug abuse patient.[facility] CenterIn the event this information is protected by the Federal Confidentiality of Alcohol and Drug Abuse Patient Records regulations: The Federal rules restrict any use of the information to criminally investigate or prosecute any alcohol or drug abuse patient.[facility] CenterIn the event this information is protected by the Federal Confidentiality of Alcohol and Drug Abuse Patient Records regulations: The Federal rules restrict any use of the information to criminally investigate or prosecute any alcohol or drug abuse patient.[facility] CenterIn the event this information is protected by the Federal Confidentiality of Alcohol and Drug Abuse Patient Records regulations: The Federal rules restrict any use of the information to criminally investigate or prosecute any alcohol or drug abuse patient.[facility] CenterIn the event this information is protected by the Federal Confidentiality of Alcohol and Drug Abuse Patient Records regulations: The Federal rules restrict any use of the information to criminally investigate or prosecute any alcohol or drug abuse patient.[facility] CenterIn the event this information is protected by the Federal Confidentiality of Alcohol and Drug Abuse Patient Records regulations: The Federal rules restrict any use of the information to criminally investigate or prosecute any alcohol or drug abuse patient.[facility] CenterIn the event this information is protected by the Federal Confidentiality of Alcohol and Drug Abuse Patient Records regulations: The Federal rules restrict any use of the information to criminally investigate or prosecute any alcohol or drug abuse patient.[facility] CenterIn the event this information is protected by the Federal Confidentiality of Alcohol and Drug Abuse Patient Records regulations: The Federal rules restrict any use of the information to criminally investigate or prosecute any alcohol or drug abuse patient.[facility] CenterIn the event this information is protected by the Federal Confidentiality of Alcohol and Drug Abuse Patient Records regulations: The Federal rules restrict any use of the information to criminally investigate or prosecute any alcohol or drug abuse patient.[facility] Reason for Visit (unrecogniz ed section and content) Specialty Diagnoses / Procedures Referred By Linn carrillo Referred To Contact [facility] Diagnoses Abnormality of gait due to impairment of balance Procedures CONSULT TO PHYSICAL THERAPY PHYSICAL THERAPY EVALUATION HIGH COMPLEX 45 MINS Tamie Kaur MD [address] [place] [address] [facility] [place] [address] [place] [address] Referral ID Status Reason Start Date Expiration Date Visits Requested Visits Authorized [id number] Authorized PCP Requested Referral Auto-Generate d Referral [...] 6 mo Reason Comments Hospital Follow Up [facility] discharged Reason Comments Results Reason Comments Consult altered mental statu s Specialty Diagnoses / Procedures Referred By Contac t Referred To Contact Neurology Diagnoses Altered mental status, unspecified altered mental status type Procedures CONSULT TO NEUROLOGY OFFICE/OUTPATIENT NEW HIGH MDM 60-74 MINUTES Abdulaziz Caldera MD [address] [place] [address] Referral ID Status Reason Start Date Expiration Date V isits Requested Visits Authorized [id number] Closed PCP Requested Referral 01/01/2022 01/01/2023 1 [...] Request 07/09/2022 Reason Comments Orders Reason Comments HH Nursing Plan of Care Update Reason Comments [facility] HH PT POC Reason Comments OT plan of care Reason Onset Date Comments Refill Request 07/25/2022 Reason Comments Home Health-Nursing Update Reason Onset Date Comments Anticoagulation 07/31/2022 Specialty Diagnoses / Procedures Referred By Linn carrillo Referred To Contact Ent - Otolaryngology Diagnoses Chronic frontal sinusitis Procedures CONSULT TO ENT OFFICE/OUTPATIENT NEW HIGH MDM 60-74 MINUTES Abdulaziz Caldera MD [address] [place] [address] Referral ID Status Reason Start Date Expiration Date V isits Requested Visits Authorized [id number] Closed PCP Requested Referral 07/12/2022 07/12/2023 1 [...] Care Teams (unrecognized sec tion and content) 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 Relationship Specialty Start Date End Date Abdulaziz Caldera MD [address] [place] [address] PCP - General Family Practice 11/23/20 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 Relationship Specialty Start Date End Date Abdulaziz Caldera MD [address] [place] [address] PCP - General Family Practice 11/23/20 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 Relationship Specialty Start Date End Date Abdulaziz Caldera MD [address] [place] [address] PCP - General Family Practice 11/23/20 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 Relationship Specialty Start Date End Date Abdulaziz Caldera MD [address] [place] [address] PCP - General Family Practice 11/23/20 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 Relationship Specialty Start Date End Date Abdulaizz Caldera MD [address] [place] [address] PCP - General Family Practice 11/23/20 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 Relationship Specialty Start Date End Date Abdulaziz Caldera MD [address] [place] [address] PCP - General Family Practice 11/23/20 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 Relationship Specialty Start Date End Date Abdulaziz Caldera MD [address] [place] [address] PCP - General Family Practice 11/23/20 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 Relationship Specialty Start Date End Date Abdulaziz Caldera MD [address] [place] [address] PCP - General Family Practice 11/23/20 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 Relationship Specialty Start Date End Date Abdulaziz Caldera MD [address] [place] [address] PCP - General Family Practice 11/23/20 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 Relationship Specialty Start Date End Date Abdulaziz Caldera MD [address] [place] [address] PCP - General Family Practice 11/23/20 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 Relationship Specialty Start Date End Date Abdulaziz Caldera MD [address] [place] [address] PCP - General Family Practice 11/23/20 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 Relationship Specialty Start Date End Date Abdulaziz Caldera MD [address] [place] [address] PCP - General Family Practice 11/23/20 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 Relationship Specialty Start Date End Date Abdulaziz Caldera MD [address] [place] [address] PCP - General Family Practice 11/23/20 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 Relationship Specialty Start Date End Date Abdulaziz Caldera MD [address] [place] [address] PCP - General Family Practice 11/23/20 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 Relationship Specialty Start Date End Date Abdulaziz Caldera MD [address] [place] [address] PCP - General Family Practice 11/23/20 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 Relationship Specialty Start Date End Date Abdulaziz Caldera MD [address] [place] [address] PCP - General Family Practice 11/23/20 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 Relationship Specialty Start Date End Date Abdulaziz Caldera MD [address] [place] [address] PCP - General Family Practice 11/23/20 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 Relationship Specialty Start Date End Date Abdulaziz Caldera MD [address] [place] [address] PCP - General Family Practice 11/23/20 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 Relationship Specialty Start Date End Date Abdulaziz Caldera MD [address] [place] [address] PCP - General Family Practice 11/23/20 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 Relationship Specialty Start Date End Date Abdulaziz Caldera MD [address] [place] [address] PCP - General Family Practice 11/23/20 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 Relationship Specialty Start Date End Date Abdulaziz Caldera MD [address] [place] [address] PCP - General Family Practice 11/23/20 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 Relationship Specialty Start Date End Date Abdulaziz Caldera MD [address] [place] [address] PCP - General Family Medicine 11/23/20 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 Relationship Specialty Start Date End Date Abdulaziz Caldera MD [facility] [place] [address] PCP - General Family Medicine 11/23/20 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 Relationship Specialty Start Date End Date Abdulaziz Caldera MD [address] [place] [address] PCP - General Family Medicine 11/23/20 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 Relationship Specialty Start Date End Date Abdulaziz Caldera MD [address] [place] [address] PCP - General Family Medicine 11/23/20 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 Relationship Specialty Start Date End Date Abdulaziz Caldera MD [address] [place] [address] PCP - General Family Medicine 11/23/20 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 Relationship Specialty Start Date End Date Abdulaziz Caldera MD [facility] [place] [address] PCP - General Family Medicine 11/23/20 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 Relationship Specialty Start Date End Date Abdulaziz Caldera MD [address] [place] [address] PCP - General Family Medicine 11/23/20 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 Relationship Specialty Start Date End Date Abdulaziz Caldera MD [address] [place] [address] PCP - General Family Medicine 11/23/20 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 Relationship Specialty Start Date End Date Abdulaziz Caldera MD [address] [place] [address] PCP - General Family Medicine 11/23/20 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 Relationship Specialty Start Date End Date Abdulaziz Caldera MD [address] [place] [address] PCP - General Family Medicine 11/23/20 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 Relationship Specialty Start Date End Date Abdulaziz Caldera MD [address] [place] [address] PCP - General Family Medicine 11/23/20 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 Relationship Specialty Start Date End Date Abdulaziz Caldera MD [address] [place] [address] PCP - General Family Medicine 11/23/20 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 Relationship Specialty Start Date End Date Abdulaziz Caldera MD [address] [place] [address] PCP - General Family Medicine 11/23/20 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 Relationship Specialty Start Date End Date Abdulaziz Caldera MD [address] [place] [address] PCP - General Family Medicine 11/23/20 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 Relationship Specialty Start Date End Date Abdulaziz Caldera MD [address] [place] [address] PCP - General Family Medicine 11/23/20 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 Relationship Specialty Start Date End Date Abdulaziz Caldera MD [address] [place] [address] PCP - General Family Medicine 11/23/20 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 Relationship Specialty Start Date End Date Abdulaziz Caldera MD [address] [place] [address] PCP - General Family Medicine 11/23/20 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 Relationship Specialty Start Date End Date Abdulaziz Caldera MD [address] [place] [address] PCP - General Family Medicine 11/23/20 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 Relationship Specialty Start Date End Date Abdulaziz Caldera MD [address] [place] [id number] PCP - General Family Medicine 11/23/20 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 Relationship Specialty Start Date End Date Abdulaziz Caldera MD [address], [place] [address] [phone] PCP - General Family Medicine 11/23/20 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 Relationship Specialty Start Date End Date Abdulaziz Caldera MD [address], [place] [id number] PCP - General Family Medicine 11/23/20 (unrecognized sect ion and content) No Status Records FoundNo Status Records FoundNo Status Records FoundNo Status Records Found INFORMATION SOURCE (unrecogn ized section and content) DATE CREATED AUTHOR AUTHOR'S ORGANIZ ATION 02/04/2022 [facility] DATE CREATED AUTHOR AUTHOR'S ORGANIZ ATION 04/19/2022 [facility] DATE CREATED AUTHOR AUTHOR'S ORGANIZ ATION 05/30/2023 [facility] FOR RECORDS PERTAINING TO PATIENTS WHO [...] BE BASED ON THE PRIMARY CLINICAL RECORDS. [facility] [employer] [facility]. provides no warranty or guarantee of the accuracy or completeness of information in this document.
[2023-07-19 07:48] LABS: INR Fingerstick 3.4; Prothrombin Time Fingerstick 36.2 SEC (11.7-14.9)
== END ==
LOC: OLS.ACH 05:00
PROVIDERS: PCP Family Medicine; Visit Provider Internal Medicine
DX: I48.0 Paroxysmal atrial fibrillation (principal); Z79.01 Long term (current) use of anticoagulants
CPT/HCPCS: 36416; 85610

== ENCOUNTER → 2023-07-22 | Outpatient (REF) | payer MEDICARE, OTHER, SELFPAY ==
--- OUTSIDE RECORDS SUMMARY | 2023-07-22 04:52 | XMS RPT_ITS | CCD ---
Author Name Unknown Address [address] [place] [address] Organization [facility] Care Team Providers Care Elementary Ell Teacher Name Role Phone Abdulaziz Caldera MD Primary [...] Unavailable ABDULAZIZ CALDERA Primary Care Unavailab le OMISÉS, TAMIE Y Referring Unavailable ABDULAZIZ CALDERA Primary [...] pantoprazole; Translations: [PANTOPRAZOLE] Drug Allergy 03-12-[address] [facility] Medications Current Medications Medication Drug Class(es) [...] Coronary atherosclerosis; Translations: [Atherosclerotic heart disease of [place] coronary artery without angina pectoris] Chronic Diabetes [...] sources) Long-term current use of anticoagulant; Translations: [assisted (current) use of anticoagulants] Onset: 05-07-2018 11-06-2018 Episodic Other aftercare (1 source) long term care social worker (current) use of anticoagulants; Translations: [Chronic anticoagulation] Onset: 11-06-2018 Episodic Other aftercare (1 source) long term care social worker (current) use of insulin; Translations: [Type 2 [...] Results Test Name Value Interpretation Reference Range [facility] it Vital Signs Date Time Vital Sign Value Performing Clinician Scott quinn 09-07-2022 11:01-0500 Body height 185.4 cm Tamie Kaur MD Work Phone: [facility] 09-07-2022 11:01-0500 Body weight 113.4 kg Tamie Kaur MD Work Phone: [facility] 09-07-2022 11:01-0500 Diastolic blood pressure 57 mm[Hg] Tamie Kaur MD Work Phone: [facility] 09-07-2022 11:01-0500 Heart rate 64 /min Tamie Kaur MD Work Phone: [facility] 09-07-2022 11:01-0500 Respiratory rate 16 /min Tamie Kaur MD Work Phone: [facility] 09-07-2022 11:01-0500 SaO2% (BldA) [Mass fraction] 99 % Tamie Kaur MD Work Phone: [facility] 09-07-2022 11:01-0500 Systolic blood pressure 124 mm[Hg] Tamie Kaur MD Work Phone: [facility] 08-09-2022 16:35-0500 Body weight 113.4 kg Abdulaziz Caldera MD Work Phone: [facility] 08-09-2022 16:35-0500 Diastolic blood pressure 62 mm[Hg] Abdulaziz Caldera MD Work Phone: [facility] 08-09-2022 16:35-0500 Heart rate 64 /min Abdulaziz Caldera MD Work Phone: [facility] 08-09-2022 16:35-0500 Respiratory rate 16 /min Abdulaziz Caldera MD Work Phone: [facility] 08-09-2022 16:35-0500 SaO2% (BldA) [Mass fraction] 96 % Abdulaziz Caldera MD Work Phone: [facility] 08-09-2022 16:35-0500 Systolic blood pressure 112 mm[Hg] Abdulaziz Caldera MD Work Phone: [facility] 04-17-2022 11:23-0400 Body height 185.4 cm Tamie Kaur MD Work Phone: [facility] 04-17-2022 11:23-0400 Body weight 114.31 kg Tamie Kaur MD Work Phone: [facility] 04-17-2022 11:23-0400 Diastolic blood pressure 71 mm[Hg] Tamie Kaur MD Work Phone: [facility] 04-17-2022 11:23-0400 Heart rate 72 /min Tamie Kaur MD Work Phone: [facility] 04-17-2022 11:23-0400 Respiratory rate 18 /min Tamie Kaur MD Work Phone: [facility] 04-17-2022 11:23-0400 SaO2% (BldA) [Mass fraction] 98 % Tamie Kaur MD Work Phone: [facility] 04-17-2022 11:23-0400 Systolic blood pressure 116 mm[Hg] Tamie Kaur MD Work Phone: [facility] 04-16-2022 13:09-0400 Body height 185.4 cm Abdulaziz Caldera MD Work Phone: [facility] 04-16-2022 13:09-0400 Body weight 114.31 kg Abdulaziz Caldera MD Work Phone: [facility] 04-16-2022 13:09-0400 Diastolic blood pressure 72 mm[Hg] Abdulaziz Caldera MD Work Phone: [facility] 04-16-2022 13:09-0400 Heart rate 70 /min Abdulaziz Caldera MD Work Phone: [facility] 04-16-2022 13:09-0400 Respiratory rate 16 /min Abdulaziz Caldera MD Work Phone: [facility] 04-16-2022 13:09-0400 SaO2% (BldA) [Mass fraction] 98 % Abdulaziz Caldera MD Work Phone: [facility] 04-16-2022 13:09-0400 Systolic blood pressure 132 mm[Hg] Abdulaziz Caldera MD Work Phone: [facility] 04-06-2022 09:36-0400 Body weight 114.31 kg Roselia Madrigal [employer] Work Phone: [facility] 04-06-2022 09:36-0400 Diastolic blood pressure 62 mm[Hg] Roselia Podlogar [employer]MANAGER [employer] DELIV[employer] Work Phone: [facility] 04-06-2022 09:36-0400 Heart rate 62 /min Roselia Podlogar [employer].MANAGER [employer] DELIV[employer] Work Phone: [facility] 04-06-2022 09:36-0400 Respiratory rate 16 /min Roselia Podlogar [employer].MANAGER [employer]OR DELIV[employer] Work Phone: [facility] 04-06-2022 09:36-0400 SaO2% (BldA) [Mass fraction] 97 % Roselia Podlogar [employer].MANAGER [employer] DELIV[employer] Work Phone: [facility] 04-06-2022 09:36-0400 Systolic blood pressure 112 mm[Hg] Roselia Podlogar [employer].MANAGER [employer] DELIV[employer] Work Phone: [facility] 03-07-2022 11:12-0400 Body weight 114.76 kg Abdulaziz Caldera MD Work Phone: [facility] 03-07-2022 11:12-0400 Diastolic blood pressure 70 mm[Hg] Abdulaziz Caldera MD Work Phone: [facility] 03-07-2022 11:12-0400 Heart rate 64 /min Abdulaziz Caldera MD Work Phone: [facility] 03-07-2022 11:12-0400 Respiratory rate 16 /min Abdulaziz Caldera MD Work Phone: [facility] 03-07-2022 11:12-0400 Systolic blood pressure 118 mm[Hg] Abdulaziz Caldera MD Work Phone: [facility] 03-05-2022 12:00-0400 Diastolic blood pressure 60 mm[Hg] Rosa Elena Lemon PT [facility] 03-05-2022 12:00-0400 Systolic blood pressure 112 mm[Hg] Rosa Elena Lemon PT [facility] 01-12-2022 08:00-0400 Diastolic blood pressure 78 mm[Hg] Rosa Elena Lemon PT [facility] 01-12-2022 08:00-0400 Systolic blood pressure 130 mm[Hg] Rosa Elena Lemon PT [facility] 01-05-2022 09:56-0400 Body height 185.4 cm Tamie Kaur MD Work Phone: [facility] 01-05-2022 09:56-0400 Body weight 111.58 kg Tamie Kaur MD Work Phone: [facility] 01-05-2022 09:56-0400 Diastolic blood pressure 62 mm[Hg] Tamie Kaur MD Work Phone: [facility] 01-05-2022 09:56-0400 Heart rate 58 /min Tamie Kaur MD Work Phone: [facility] 01-05-2022 09:56-0400 Respiratory rate 16 /min Tamie Kaur MD Work Phone: [facility] 01-05-2022 09:56-0400 SaO2% (BldA) [Mass fraction] 97 % Tamie Kaur MD Work Phone: [facility] 01-05-2022 09:56-0400 Systolic blood pressure 117 mm[Hg] Tamie Kaur MD Work Phone: [facility] 01-01-2022 10:12-0400 Body temperature 97.39 [degF] Abdulaziz Caldera MD Work Phone: [facility] 01-01-2022 10:12-0400 Body weight 111.77 kg Abdulaziz Caldera MD Work Phone: [facility] 01-01-2022 10:12-0400 Diastolic blood pressure 64 mm[Hg] Abdulaziz Caldera MD Work Phone: [facility] 01-01-2022 10:12-0400 Heart rate 47 /min Abdulaziz Caldera MD Work Phone: [facility] 01-01-2022 10:12-0400 Respiratory rate 18 /min Abdulaziz Caldera MD Work Phone: [facility] 01-01-2022 10:12-0400 SaO2% (BldA) [Mass fraction] 98 % Abdulaziz Caldera MD Work Phone: [facility] 01-01-2022 10:12-0400 Systolic blood pressure 112 mm[Hg] Abdulaziz Caldera MD Work Phone: [facility] 01-01-2022 08:55-0400 Body weight 112.49 kg Justina Leonie [employer] Work Phone: [facility] 01-01-2022 08:55-0400 Diastolic blood pressure 74 mm[Hg] Justina Leonie [employer]MANAGER [employer]IV[employer] Work Phone: [facility] 01-01-2022 08:55-0400 Heart rate 60 /min Justina Leonie [employer]MANAGER [employer]IV[employer] Work Phone: [facility] 01-01-2022 08:55-0400 Respiratory rate 18 /min Justina Leonie [employer].MANAGER [employer]IV[employer] Work Phone: [facility] 01-01-2022 08:55-0400 Systolic blood pressure 147 mm[Hg] Justina Leonie [employer]MANAGER [employer]IV[employer] Work Phone: [facility] 12-27-2021 21:22-0400 Diastolic blood pressure 71 mm[Hg] DR MELANIA WORKMAN MD [facility] 12-27-2021 21:22-0400 Heart rate 73 /min DR MELANIA WORKMAN MD [facility] 12-27-2021 21:22-0400 Respiratory rate 24 /min DR MELANIA WORKMAN MD [facility] 12-27-2021 21:22-0400 Systolic blood pressure 121 mm[Hg] DR MELANIA WORKMAN MD [facility] 12-27-2021 20:06-0400 Diastolic blood pressure 59 mm[Hg] DR MELANIA WORKMAN MD [facility] 12-27-2021 20:06-0400 Heart rate 80 /min DR MELANIA WORKMAN MD [facility] 12-27-2021 20:06-0400 Respiratory rate 26 /min DR MELANIA WORKMAN MD [facility] 12-27-2021 20:06-0400 Systolic blood pressure 112 mm[Hg] DR MELANIA WORKMAN MD [facility] 12-27-2021 19:19-0400 Body temperature 98.6 [degF] DR MELANIA WORKMAN MD [facility] 12-27-2021 19:19-0400 Diastolic blood pressure 76 mm[Hg] DR MELANIA WORKMAN MD [facility] 12-27-2021 19:19-0400 Heart rate 82 /min DR MELANIA WORKMAN MD [facility] 12-27-2021 19:19-0400 Respiratory rate 26 /min DR MELANIA WORKMAN MD [facility] 12-27-2021 19:19-0400 Systolic blood pressure 138 mm[Hg] DR MELANIA WORKMAN MD [facility] 12-27-2021 17:36-0400 Body temperature 102.56 [degF] DR MELANIA WORKMAN MD [facility] 12-27-2021 17:36-0400 Body weight [address] MELANIA WORKMAN MD [facility] 12-27-2021 17:36-0400 Heart rate 104 /min DR MELANIA WORKMAN MD [facility] 12-14-2021 15:10-0400 Body temperature 98.2 [degF] Abdulaziz Caldera MD Work Phone: [facility] 12-14-2021 15:10-0400 Body weight 110.77 kg Abdulaziz Caldera MD Work Phone: [facility] 12-14-2021 15:10-0400 Diastolic blood pressure 70 mm[Hg] Abdulaziz Caldera MD Work Phone: [facility] 12-14-2021 15:10-0400 Heart rate 54 /min Abdulazzi Caldera MD Work Phone: [facility] 12-14-2021 15:10-0400 Respiratory rate 16 /min Abdulaziz Caldera MD Work Phone: [facility] 12-14-2021 15:10-0400 SaO2% (BldA) [Mass fraction] 96 % Abdulaziz Caldera MD Work Phone: [facility] 12-14-2021 15:10-0400 Systolic blood pressure 130 mm[Hg] Abdulaziz Caldera MD Work Phone: [facility] 12-08-2021 16:23-0400 Diastolic blood pressure 64 mm[Hg] Abdulaziz Caldera MD Work Phone: [facility] 12-08-2021 16:23-0400 Heart rate 85 /min Abdulaziz Caldera MD Work Phone: [facility] 12-08-2021 16:23-0400 Systolic blood pressure 110 mm[Hg] Abdulaziz Caldera MD Work Phone: [facility] 10-23-2021 13:05-0400 Body temperature 97.3 [degF] Marcella Xavier PA-C Work Phone: [facility] 10-23-2021 13:05-0400 Body weight 114.58 kg Marcella Xavier PA-C Work Phone: [facility] 10-23-2021 13:05-0400 Diastolic blood pressure 56 mm[Hg] Marcella Xavier PA-C Work Phone: [facility] 10-23-2021 13:05-0400 Heart rate 85 /min Marcella Xavier PA-C Work Phone: [facility] 10-23-2021 13:05-0400 SaO2% (BldA) [Mass fraction] 98 % Marcella Xavier PA-C Work Phone: [facility] 10-23-2021 13:05-0400 Systolic blood pressure 132 mm[Hg] Marcella Arcola PA-C Work Phone: [facility] 10-10-2021 10:07-0400 Diastolic blood pressure 68 mm[Hg] Richard Jones MD Work Phone: [facility] 10-10-2021 10:07-0400 Heart rate 69 /min Richard Jones MD Work Phone: [facility] 10-10-2021 10:07-0400 Respiratory rate 16 /min Richard Jones MD Work Phone: [facility] 10-10-2021 10:07-0400 SaO2% (BldA) [Mass fraction] 98 % Richadr Jones MD Work Phone: [facility] 10-10-2021 10:07-0400 Systolic blood pressure 150 mm[Hg] Richard Jones MD Work Phone: [facility] 10-10-2021 08:01-0400 Body temperature 97 [degF] Richard Jones MD Work Phone: [facility] Encounters Encounter Date Encounter Type Care Provider Facility Start: 01-28-2023 Telephone encounter Luis Caldera MD Work Phone: [facility] [place] Procedures Date Procedure Procedure Detail Performing Clinician Start: 04-06-2022 INFLUENZA SEASONAL QUADRIVALENT HIGH DOSE AGE 65+ Roselia Podlogar [employer] Work Phone: Start: 04-06-2022 PFIZER-BIONTECH COVI D-19 BIVALENT BOOSTER VACCINE, AGE 12+ YR Roselia Podlogar [employer].MANAGER [employer]IV[employer] Work Phone: Start: 04-06-2022 Adult depression scr eening assessment Roselia Podlogar [employer].MANAGER [employer]OR [employer]IV[employer] Work Phone: Start: 03-07-2022 PROTHROMBIN TIME/PT Chr mine Caldera MD Work Phone: Start: 03-07-2022 Adult depression scr eening assessment Abdulaziz Caldera MD Work Phone: Start: 01-09-2022 Echo tthrc r-t 2d w/wom-mode compl spec&colr d Justina E Leonie [employer].MANAGER [employer]IV[employer] Work Phone: Start: 01-01-2022 Urnls dip stick/tabl [...] Activity Detail Author Start: 10-11-2031 Colonoscopy [address] [facility] Start: 10-11-2031 COLORECTAL CANCER SCREENING COLORECTAL CANCER SCREENING [facility] Start: 10-10-2024 Colonoscopy COLONOSCOPY [facility] Start: 10-10-2024 COLORECTAL CANCER SCREENING COLORECTAL CANCER SCREENING [facility] Start: 01-05-2024 ANNUAL PCP TEAM CHRONIC DISEASE VISIT ANNUAL PCP TEAM CHRONIC DISEASE VISIT [facility] Start: 01-05-2024 BP CONTROLLED (<130/80) BP CONTROLLED (<130/80) [facility] Start: 12-04-2023 BP CONTROLLED (<130/80) BP CONTROLLED (<130/80) [facility] Start: 11-20-2023 ANNUAL PCP TEAM CHRONIC DISEASE VISIT ANNUAL PCP TEAM CHRONIC DISEASE VISIT [facility] Start: 11-20-2023 BP CONTROLLED (<130/80) BP CONTROLLED (<130/80) [facility] Start: 09-07-2023 BP CONTROLLED (<130/80) BP CONTROLLED (<130/80) [facility] Start: 08-13-2023 HEMOGLOBIN/HEMATOCRIT HEMOGLOBIN/HEMATOCRIT [facility] Start: 08-13-2023 SERUM CREATININE SERUM CREATININE [facility] Start: 08-09-2023 ANNUAL PCP TEAM CHRONIC DISEASE VISIT ANNUAL PCP TEAM CHRONIC DISEASE VISIT [facility] Start: 08-09-2023 BP CONTROLLED (<130/80) BP CONTROLLED (<130/80) [facility] Start: 07-12-2023 ANNUAL PCP TEAM CHRONIC DISEASE VISIT ANNUAL PCP TEAM CHRONIC DISEASE VISIT [facility] Start: 07-12-2023 BP CONTROLLED (<130/80) BP CONTROLLED (<130/80) [facility] Start: 04-17-2023 BP CONTROLLED (<130/80) BP CONTROLLED (<130/80) [facility] Start: 04-16-2023 ANNUAL PCP TEAM CHRONIC DISEASE VISIT ANNUAL PCP TEAM CHRONIC DISEASE VISIT [facility] Start: 04-06-2023 Adult depression screening assessment DEPRESSION SCREENING [facility] Start: 04-06-2023 ANNUAL PCP TEAM CHRONIC DISEASE VISIT ANNUAL PCP TEAM CHRONIC DISEASE VISIT [facility] Start: 04-06-2023 BP CONTROLLED (<130/80) BP CONTROLLED (<130/80) [place] [facility] Start: 03-30-2023 3 comp foot exam completed DIABETIC FOOT EXAM [facility] Start: 03-15-2023 Influenza vaccination INFLUENZA (#1) [facility] Start: 03-07-2023 Adult depression screening assessment DEPRESSION SCREENING [facility] Start: 03-07-2023 ANNUAL PCP TEAM CHRONIC DISEASE VISIT ANNUAL PCP TEAM CHRONIC DISEASE VISIT [facility] Start: 03-07-2023 BP CONTROLLED (<130/80) BP CONTROLLED (<130/80) [facility] Start: 03-07-2023 SERUM CREATININE SERUM CREATININE [facility] Start: 03-05-2023 BP CONTROLLED (<130/80) BP CONTROLLED (<130/80) [facility] Start: 03-02-2023 Hepatitis B screening URINE ALBUMIN:CREATININE RATIO [facility] Start: 02-10-2023 Hemoglobin A1c/Hemoglobin.total in Blood HBA1C [facility] Start: 01-05-2023 BP CONTROLLED (<130/80) BP CONTROLLED (<130/80) [facility] Start: 01-01-2023 ANNUAL PCP TEAM CHRONIC DISEASE VISIT ANNUAL PCP TEAM CHRONIC DISEASE VISIT [facility] Start: 01-01-2023 BP CONTROLLED (<130/80) BP CONTROLLED (<130/80) [facility] Start: 01-01-2023 Hepatitis B surface antibody level LDL CHOLESTEROL [facility] Start: 01-01-2023 SERUM CREATININE SERUM CREATININE [facility] Start: 12-14-2022 ANNUAL PCP TEAM CHRONIC DISEASE VISIT ANNUAL PCP TEAM CHRONIC DISEASE VISIT [facility] Start: 12-08-2022 ANNUAL PCP TEAM CHRONIC DISEASE VISIT ANNUAL PCP TEAM CHRONIC DISEASE VISIT [facility] Start: 12-08-2022 BP CONTROLLED (<130/80) BP CONTROLLED (<130/80) [facility] Start: 09-06-2022 ANNUAL PCP TEAM CHRONIC DISEASE VISIT ANNUAL PCP TEAM CHRONIC DISEASE VISIT [facility] Start: 09-02-2022 Hemoglobin A1c/Hemoglobin.total in Blood HBA1C [facility] Start: 08-30-2022 SERUM CREATININE SERUM CREATININE [facility] Start: 08-09-2022 End: 10-09-2022 CBC W Auto Differential panel - Blood CBC + DIFF Lab Routine Type 2 diabetes mellitus with diabetic neuropathy, with long-term current use of insulin (HCC) Expected: 08/09/2022, Expires: 10/09/2022 [facility] Work Phone: Immunizations Immunization Date Immunization Notes Care Provider Fa cili 04-06-2022 COVID-19 booster vaccine, age 12+ yr, bivalent (PFIZER-BIONTECH) Roselia Podlogdavid [employer].MANAGER [employer]IV[employer] Work Phone: [facility] 04-06-2022 influenza, high-dose , quadrivalent vaccine (FLUZONE HIGH DOSE QUADRIVALENT) Roselia Raglandlogdavid [employer].MANAGER [employer]OR DELIVERY Work Phone: [facility] 06-14-2021 influenza, high-dose , quadrivalent vaccine (FLUZONE HIGH DOSE QUADRIVALENT) Abdulaziz Caldera MD Work Phone: [facility] Work Phone: 02-24-2021 zoster vaccine recombinant Abdulaziz Caldera MD Work Phone: [facility] 09-30-2020 COVID-19 vaccine, ag e 12+ yr (PFIZER-BIONTECH - PURPLE TOP) Abdulaziz Caldera MD Work Phone: [facility] 09-09-2020 COVID-19 vaccine, ag e 12+ yr (PFIZER-BIONTECH - PURPLE TOP) Abdulaziz Caldera MD Work Phone: [facility] 04-16-2020 influenza, high-dose , quadrivalent vaccine (FLUZONE HIGH DOSE QUADRIVALENT) Abdulaziz Caldera MD Work Phone: [facility] 03-14-2020 zoster vaccine recombinant Abdulaziz Caldera MD Work Phone: [facility] Work Phone: 04-02-2019 influenza, high dose seasonal, preservative-free Abdulaziz Caldera MD Work Phone: [facility] Work Phone: 04-15-2018 influenza, high dose seasonal, preservative-free Abdulaziz Caldera MD Work Phone: [facility] 06-13-2017 influenza, high dose seasonal, preservative-free Abdulaziz Caldera MD Work Phone: [facility] 06-20-2016 influenza, high dose seasonal, preservative-free Abdulaziz Caldera MD Work Phone: [facility] 11-24-2015 pneumococcal polysaccharide vaccine, 23 valent Abdulaziz Caldera MD Work Phone: [facility] 05-16-2015 influenza, high dose seasonal, preservative-free Abdulaziz Caldera MD Work Phone: [facility] 10-27-2014 pneumococcal conjuga te vaccine, 13 valent Abdulaziz Caldera MD Work Phone: [facility] 10-27-2014 zoster vaccine, live Socrates Caldera MD Work Phone: [facility] 06-11-2011 influenza virus vaccine, unspecified formulation Abdulaziz Caldera MD Work Phone: [facility] 12-25-2010 tetanus toxoid, redu veronika diphtheria toxoid, and acellular pertussis vaccine, adsorbed Abdulaziz Caldera MD Work Phone: [facility] 04-25-2009 pneumococcal polysaccharide vaccine, 23 valent Abdulaziz Caldera MD Work Phone: [facility] 03-21-2000 diphtheria and tetan us toxoids, adsorbed for pediatric use Abdulaziz Caldera MD Work Phone: [facility] Work Phone: 02-11-1961 poliovirus vaccine, inactivated Abdulaziz Caldera MD Work Phone: [facility] Work Phone: 03-25-1959 poliovirus vaccine, inactivated Abdulaziz Caldera MD Work Phone: [facility] Work Phone: 10-16-1956 poliovirus vaccine, inactivated Abdulaziz Caldera MD Work Phone: [facility] Work Phone: 01-12-1956 poliovirus vaccine, inactivated Abdulaziz Caldera MD Work Phone: [facility] Work Phone: 12-03-1955 poliovirus vaccine, inactivated Abdulaziz Caldera MD Work Phone: [facility] Work Phone: Payers Date Payer Category Payer Unknown HOSPITAL/MEDICAL GENERIC MEDICAL GENERIC [id number] 2012-Present [phone] [address] [place] [address] Indemnity [id number] 2012 Unknown HOSPITAL/MEDICAL GENERIC MEDICAL GENERIC [id number] 2012-Present [phone] [address] [place] [address] Indemnity [id number] 2012 Unknown [id number] 2012 Medicare MEDICARE MEDICAR E A AND B [id number] 2012-Present [phone] [place] [address] Medicare [id number] 2012 Medicare MEDICARE MEDICAR E A AND B [id number] 2012-Present [phone] [place] [address] Medicare [id number] 2012 Medicare [id number] 1945 Unknown [id number] Social History Date Type Detail Facility Start: 11-23-2020 End: 04-06-2022 Tobacco smoking status NHIS Never smoked tobacco [facility] Start: 09-06-2021 End: 12-03-2022 Alcohol intake Current non-drinker of alcohol (finding) [facility] Start: 1945 Sex Assigned At Not on file [facility] Start: 08-07-2021 End: 04-17-2022 Exposure to SARS-CoV-2 (event) Not sure [facility] Tobacco smoking status No Smokin g Status Entered [facility] Sex Assigned At Male [facility] Start: 01-02-2022 End: 01-12-2022 Exposure to SARS-CoV-2 (event) Unable to assess [facility] Work Phone: Start: 11-23-2020 End: 04-06-2022 Tobacco use and exposure Smokeless tobacco non-user [facility] Work Phone: Start: 11-19-2022 End: 12-03-2022 History of Social function [facility] Work Phone: Start: 11-19-2022 End: 12-03-2022 Tobacco use panel [facility] Work Phone: Adult Depression Screening Assessment [address] [facility] Work Phone: Medical Equipment Procedure Code [...] Note Patient Outreach (EVELYN ROGERS) RICHARD ROY ([id number]) 1945 M Date Time Provider Department 05/28/23 GUDELIA HUITRON During your visit today, we recorded the following information about you: Gudelia Huitron MA 05/28/2023 12:44 PM Signed POPULATION HEALTH NAVIGATION OUTREACH Action/FYI NO ANSWER [id number] MESSAGE SENT ANNUAL MEDICARE WELLNESS Advance Directive Discussion Never done HbA1C due on 02/10/2023 Influenza Vaccine(1) due on 03/15/2023 Patient Identified by Name and : NO Outreach Outcome/Action Unable to reach patient: Phone number not valid / voicemail full Fabbeot message sent Did you use a PCP [...] time a week. - blood sugar diagnostic (Udem[employer] ULTRA TEST) test strip Test blood sugar(s) [...] due to im (more content not included)... [facility] 05-28-2023 Note HNO ID: [id number] Author: Gudelia Huitron MA Service: ? Author Type: People Manager Type: Progress Notes Filed: 05/28/2023 12:44 PM Note Text: POPULATION HEALTH NAVIGATION OUTREACH Action/I NO ANSWER [id number] MESSAGE SENT ANNUAL MEDICARE WELLNESS Advance Directive Discussion Never done HbA1C due on 02/10/2023 Influenza Vaccine(1) due on 03/15/2023 Patient Identified by Name and : NO Outreach Outcome/Action Unable to reach patient: Phone number not valid / voicemail full ScanDigitalhart message sent Did you use a PCP [...] Huitron MA May 28, 2023 7:41 AM [facility] 02-12-2023 Note Patient Outreach (IN TMMN) RICHARD ROY ([id number]) 1945 M Date Time Provider Department 02/12/23 ABDULAZIZ CALDERA During your visit today, we recorded the following information about you: Allergies As of Date: 02/12/2023 Noted Allergy Reaction PANTOPRAZOLE 09/24/2019 6 - Diarrhea Date Reviewed: 01/04/2023 Reviewed by: Tamika Grijalva LPN - Fully Assessed Visit Diagnosis:Diabetic retinopathy of right eye (HCC) [E11.319] Order(s):HGB A1C [[id number]] Order #: [id number] FUTURE Prescriptions as of 02/15/2023 - metFORMIN [...] Encounter Status:Closed by SOLA RANDLE on 02/15/23 [facility] 01-28-2023 Miscellaneous Notes Miya with [facility] calls to report pt was admitted to their facility over the weekend. Miya is requesting immunization record be faxed to: [phone]. Immunization record faxed as requested. Tania Heller LPN documented in this encounter [facility] 01-24-2023 Miscellaneous Notes Phoned patient's and [...] Patient's calling to say patient was at [facility] for rehabilitation after his hospitalization @ [facility] for confusion on 01/04. He was sent by squad to [facility] from [facility] on 01/21 due to episode of decreased [...] post hospital stay but it won't be [facility]. Vannessa Jorge, JACEY documented in this encounter [facility] 01-04-2023 Note HNO ID: [id number] Author: Abdulaziz Caldera MD Service: ? Author [...] Benign-Dr. 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 ([facility]) 05/25/2018 History of transfusion Hyperlipidemia LDL goal < 100 04/01/2012 NSTEMI (non-ST elevated myocardial infarction) ([facility]) Pulmonary embolus, right ([facility]) 09/25/2013 Status post aortic valve repair 2005 Thoracic aneurysm without mention of rupture Type 2 diabetes mellitus with stage 3 chronic kidney disease, with long-term current use of insulin ([facility]) 06/20/2016 Vitamin D deficiency 01/03/2022 Previous Surgical History PAST SURGICAL HISTORY Procedure Laterality Date ABDOMINAL SURGERY HX AMPUTATION METATARSAL+TOE,SINGLE Right 05/25/2018 with delayed closure on 05/28/18. Dr. Obregon at [facility] COLONOSCOPY 10/10/2021 repeat in 3 years COLONOSCOPY [...] Yes Current Facility-Administ (more content not included)... [facility] 01-04-2023 Miscellaneous Notes Pt was seen [...] recommend ER evaluation. documented in this encounter [facility] 01-04-2023 Miscellaneous Notes No return call [...] Vannessa Jorge RN documented in this encounter [facility] 01-03-2023 Note HNO ID: [id number] Author: Justina Escoto PT Service: ? Author [...] included: Therapeutic exercise, Neuromuscular re-education, Therapeutic activities, Self-assisted management, and Gait training. Goals for Episode [...] PARTIALLY MET, improved 8 to 9 reps Kelliher in home exercise program including cardiovascular exercise. [...] in proper exercise (more content not included)... [facility] 01-03-2023 History of Presen t illness [...] included: Therapeutic exercise, Neuromuscular re-education, Therapeutic activities, Self-assisted management, and Gait training. Goals for Episode [...] PARTIALLY MET, improved 8 to 9 reps Kelliher in home exercise program including cardiovascular exercise. [...] with an (*). Patient education as noted. Self-Long-Term Management: 1: *strongly enouraged f/u with physician [...] Justina Escoto PT documented in this encounter [facility] 12-31-2022 Note HNO ID: [id number] Author: Justina Escoto PT Service: ? Author [...] Treatment Time Minutes (timed/untimed): 42 Ira Ramos, COMPLAINT COORDINATOR Justina Escoto, PT [facility] 12-31-2022 History of Presen t illness [...] ALISIA Burch PT documented in this encounter [facility] 12-27-2022 Note HNO ID: [id number] Author: Justina Escoto PT Service: ? Author [...] Treatment Time Minutes (timed/untimed): 40 Ira Ramos, COMPLAINT COORDINATOR Justina Escoto, PT [facility] 12-27-2022 History of Presen t illness [...] ALISIA Burch PT documented in this encounter [facility] 12-24-2022 Note HNO ID: [id number] Author: Justina Escoto PT Service: ? Author [...] was facilitated with verbal and visual cueing. Self-Long-Term Management: 1: *strongly encouraged pt. to be [...] Time Minutes (timed/untimed): 40 Justina Escoto, PT [facility] 12-24-2022 History of Presen t illness [...] was facilitated with verbal and visual cueing. Self-Long-Term Management: 1: *strongly encouraged pt. to be [...] Justina Escoto PT documented in this encounter [facility] 12-17-2022 Note HNO ID: [id number] Author: Justina Escoto PT Service: ? Author [...] of gait belt. Patient education as noted. Self-Long-Term Management: 1: *discussed automatic lights 2: *discussed [...] Time Minutes (timed/untimed): 40 Justina Escoto, PT [facility] 12-17-2022 History of Presen t illness [...] of gait belt. Patient education as noted. Self-Long-Term Management: 1: *discussed automatic lights 2: *discussed [...] Justina Escoto PT documented in this encounter [facility] 12-14-2022 Note HNO ID: [id number] Author: Justina Escoto PT Service: ? Author [...] Time Minutes (timed/untimed): 40 Justina Escoto, PT [facility] 12-14-2022 History of Presen t illness [...] Justina Escoto PT documented in this encounter [facility] 12-12-2022 Note HNO ID: [id number] Author: Justina Escoto PT Service: ? Author [...] Time Minutes (timed/untimed): 40 Justina Escoto, PT [facility] 12-12-2022 History of Presen t illness [...] Justina Escoto PT documented in this encounter [facility] 12-06-2022 Note HNO ID: [id number] Author: Justina Escoto, PT Service: ? Author [...] Time Minutes (timed/untimed): 40 Justina Escoto, PT [facility] 12-03-2022 Note HNO ID: [id number] Author: Bobbi Garcia MD Service: ? Author Type: Physician Type: Progress Notes Filed: 12/03/2022 12:13 PM Note Text: [facility] SE[facility]IONAL CARDIOLOGY Cardiology ([facility]) [address] [facility] [id number] OUTPATIENT VISIT DATE 12/03/2022 PRIMARY CARE PHYSICIAN: Abdulaziz Caldera [address] [place] [address] HISTORY OF PRESENT ILLNESS: Mr. 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 ([facility]) 05/25/2018 History of transfusion Hyperlipidemia LDL goal < 100 04/01/2012 NSTEMI (non-ST elevated myocardial infarction) ([facility]) Pulmonary embolus, right ([facility]) 09/25/2013 Status post aortic valve repair 2005 Thoracic aneurysm without mention of rupture Type 2 diabetes mellitus with stage 3 chronic kidney disease, with long-term current use of insulin ([facility]) 06/20/2016 Vitamin D deficiency 01/03/2022 PAST SURGICAL HISTORY Procedure Laterality Date ABDOMINAL SURGERY HX AMPUTATION METATARSAL+TOE,SINGLE Right 05/25/2018 with delayed closure on 05/28/18. Dr. Obregon at [facility] COLONOSCOPY 10/10/2021 repeat in 3 years COLONOSCOPY [...] 5 EachRfl: 5 warfarin (COUMADIN) 5 mg mg Saturday and Saturday, 7.5 mg all [...] Units subcutaneously daily (more content not included)... [facility] 12-03-2022 Note HNO ID: [id number] Author: Justina Escoto, PT Service: ? Author [...] facilitated with verbal, visual, and tactile cueing. Self-Long-Term Management: 1: *at length discussed importance of letting physician know about pt. concerns with his loss of interest in things prior to COVID-19 pandemic 2: *discussed that motivation will come from the pt. not from the or the therapist -- and this will directly influence pt. salvage determiner progress. 3: *discussed with and pt. that pt. stating I'm lazy. is not his personality and pt. states that he does not want to be this way, but he wants to be comfortable. (more content not included)... [facility] 11-29-2022 Note HNO ID: [id number] Author: Justina Escoto, PT Service: ? Author [...] 11 repetitions to reflect decreased fall risk. Kelliher in home exercise program including cardiovascular exercise. [...] Planned: 12 Planned Treatment Interventions: Therapeutic exercise (57118), Neuromuscular re-education (23522), Manual therapy (26378), Therapeutic activities (05246), Self-assisted management (72936), Gait Training (53721), Patient/Family/Caregiver Education PLAN FOR NEXT VISIT: Assess [...] <20 [facility] (more content not included)... [facility] 11-20-2022 Miscellaneous Notes OMAR 11/19/22 Appointment [...] to the pharmacy. Please call patient at: [phone]. Nola Castro Pss documented in this encounter [facility] 11-19-2022 Miscellaneous Notes Pt notified of [...] result): 09/24/2022 2.5 documented in this encounter [facility] 11-19-2022 Note HNO ID: [id number] Author: Abdulaziz Caldera MD Service: ? Author [...] Benign-Dr. 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 ([facility]) 05/25/2018 History of transfusion Hyperlipidemia LDL goal < 100 04/01/2012 NSTEMI (non-ST elevated myocardial infarction) ([facility]) Pulmonary embolus, right ([facility]) 09/25/2013 Status post aortic valve repair 2004 Thoracic aneurysm without mention of rupture Type 2 diabetes mellitus with stage 3 chronic kidney disease, with long-term current use of insulin ([facility]) 06/20/2016 Vitamin D deficiency 01/03/2022 Previous Surgical History PAST SURGICAL HISTORY Procedure Laterality Date ABDOMINAL SURGERY HX AMPUTATION METATARSAL+TOE,SINGLE Right 05/25/2018 with delayed closure on 05/28/18. Dr. Obregon at [facility] COLONOSCOPY 10/10/2021 repeat in 3 years COLONOSCOPY [...] chloride 0.9 % (more content not included)... [facility] 10-22-2022 Note HNO ID: [id number] Author: Arminda Obregon Service: ? Author Type: [...] RTC in 3-4 months. Arminda Obregon DPM [facility] 10-22-2022 Note HNO ID: [id number] Author: Blaire Sandoval RN Service: ? Author Type: ? Type: Progress Notes Filed: 10/22/2022 3:47 PM Note Text: Patient presents with: Left Foot - Established Patient, Diabetic Foot Care Right Foot - Established Patient, Diabetic Foot Care [facility] 10-22-2022 History of Presen t illness [...] Diabetic Foot Care documented in this encounter [facility] 10-22-2022 Instructions Arminda Obregon - 10/22/2022 [...] (or decreased sensation in your feet) a cumulative effects analyst should always cut your toenails. Be Careful [...] Go to your health care provider or cumulative effects analyst to treat these conditions. documented in this encounter [facility] 09-25-2022 Miscellaneous Notes Patient notified. Voices [...] or narrative: no documented in this encounter [facility] 09-07-2022 Note HNO ID: [id number] Author: Tamie Kaur MD Service: ? Author [...] folllow up after hospitalization in [facility]. he was admitted because of syncopal [...] others Since covid hit they went [place] and was staying in the house by [...] Benign-Dr. 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 ([facility]) 05/25/2018 History of transfusion Hyperlipidemia LDL goal < 100 04/01/2012 NSTEMI (non-ST elevated myocardial infarction) ([facility]) Pulmonary embolus, right ([facility]) 09/25/2013 Status post aortic valve repair 2004 Thoracic aneurysm without mention of rupture Type 2 diabetes mellitus with stage 3 chronic kidney disease, with long-term current use of insulin ([facility]) 06/20/2016 Vitamin D deficiency 01/03/2022 PSH: PAST SURGICAL HISTORY Procedure Laterality Date ABDOMINAL SURGERY HX AMPUTATION METATARSAL+TOE,SINGLE Right 05/25/2018 (more content not included)... [facility] 09-07-2022 Miscellaneous Notes Call to patient. Provided number to schedule- [phone]. Offered to transfer patient to schedule but patient declined to schedule stating he could call later. PAOLA Potter, RN September 07, 2022 1:11 PM Suzanne please let patient know how to proceed with driving evaluation I already put the order in computer documented in this encounter [facility] 09-07-2022 History of Presen t illness [...] folllow up after hospitalization in [facility]. he was admitted because of syncopal [...] others Since covid hit they went [place] and was staying in the house by [...] Benign-Dr. 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 ([facility]) 05/25/2018 History of transfusion Hyperlipidemia LDL goal < 100 04/01/2012 NSTEMI (non-ST elevated myocardial infarction) ([facility]) Pulmonary embolus, right ([facility]) 09/25/2013 Status post aortic valve repair 2005 Thoracic aneurysm without mention of rupture Type 2 diabetes mellitus with stage 3 chronic kidney disease, with long-term current use of insulin ([facility]) 06/20/2016 Vitamin D deficiency 01/03/2022 PSH: PAST SURGICAL HISTORY Procedure Laterality Date ABDOMINAL SURGERY HX AMPUTATION METATARSAL+TOE,SINGLE Right 05/25/2018 with delayed closure on 05/28/18. Dr. Obregon at [facility] COLONOSCOPY 10/10/2021 repeat in 3 years COLONOSCOPY [...] one time a week. blood sugar diagnostic (Udemy ULTRA TEST) test strip Test blood sugar(s) [...] gait ,unsteady Cannot tandem Tamie Kaur M.D. [facility] Neurological [place] Department of Neurology Total time in minutes [...] on at night. documented in this encounter [facility] 08-28-2022 Miscellaneous Notes Phoned patient and [...] debra Heller LPN documented in this encounter [facility] 08-16-2022 Miscellaneous Notes Patient has been [...] patient. Grecia Bustillo documented in this encounter [facility] 08-14-2022 Miscellaneous Notes Phoned patient and [...] or narrative: no documented in this encounter [facility] 08-09-2022 Note HNO ID: [id number] Author: Abdulaziz Caldera MD Service: ? Author [...] 12 months ago. Going to schedule appointment [facility]. 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 Asymtpomatic still on medical management. Has completed his home PT/OT. Echo and stress test at [facility] were negative/normal. Has follow up with Dr. Garcia on 12/03. questioning if they should be seen sooner. BP well controlled with current regimen <130/80. BPH: With use of flomax, patient is getting up once at night to urinate. Has weak stream, but denies straining, incomplete emptying, dysuria, hematuria, incontinence. Followed up with ENT in [place] for chronic frontal sinusitis on CT/MRI going [...] delayed closure on 05/28/18. Dr. Obregon at [facility] COLONOSCOPY 10/10/2021 repeat in 3 years COLONOSCOPY [...] daily. For cholesterol. (more content not included)... [facility] 08-09-2022 History of Presen t illness [...] 12 months ago. Going to schedule appointment [facility] [place]. 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 Asymtpomatic still on medical management. Has completed his home PT/OT. Echo and stress test at [facility] were negative/normal. Has follow up with Dr. Garcia on 12/03. questioning if they should be seen sooner. BP well controlled with current regimen <130/80. BPH: With use of flomax, patient is getting up once at night to urinate. Has weak stream, but denies straining, incomplete emptying, dysuria, hematuria, incontinence. Followed up with ENT in [place] for chronic frontal sinusitis on CT/MRI going [...] goal < 100 04/01/2012 Pulmonary embolus, right ([facility]) 09/25/2013 Status post aortic valve repair 2005 Thoracic aneurysm without mention of rupture Type 2 diabetes mellitus with stage 3 chronic kidney disease, with long-term current use of insulin ([facility]) 06/20/2016 Vitamin D deficiency 01/03/2022 Previous Surgical History PAST SURGICAL HISTORY Procedure Laterality Date ABDOMINAL SURGERY HX AMPUTATION METATARSAL+TOE,SINGLE Right 05/25/2018 with delayed closure on 05/28/18. Dr. Obregon at [facility] COLONOSCOPY 10/10/2021 repeat in 3 years COLONOSCOPY [...] by mouth once daily. blood sugar diagnostic ([employer]UCH ULTRA TEST) test strip Test blood sugar(s) [...] Abs Lymph 1.00 - 4.00 k/uL 1.81 Mckean% % 6.9 Abs Mckean <0.87 k/uL 0.86 Eosin% % 3.1 Abs [...] neuropathy, with long-term current use of insulin ([facility]) - ICD9: 250.60, 357.2, V58.67, ICD10: E11.40, Z79.4 (primary diagnosis) improved control - Continue current medications - Blood glucose monitoring on a four times a day schedule - Encouraged regular aerobic exercise and weight loss - Follow up in 6 months, sooner should any other issues arise. - Discussed diabetic education issues of longterm diabetic complications, hypoglycemic symptoms, hyperglycemic symptoms, diet, medications- side effects and need for compliance, importance of exercise, use and side effects of insulin, and importance of annual examinations with Opthalmology with patient. - HGB A1C - COMP METABOLIC PANEL - INSULIN ASPART (U-100) 100 UNIT/ML (3 ML) SUBCUTANEOUS PEN - CBC + DIFF 2. Diabetic polyneuropathy associated with type 2 diabetes mellitus ([facility]) - ICD9: 250.60, 357.2, ICD10: E11.42 Controlled on current regimen. 3. NSTEMI (non-ST elevated myocardial infarction) ([facility]) - ICD9: 410.70, ICD10: I21.4 [...] Abdulaziz Caldera MD documented in this encounter [facility] 08-06-2022 Miscellaneous Notes Phoned patient and updated him with provider's message. Patient voiced understanding. I would not recommend a baby ASA for this patient. Pt called to check on refill on baby aspirin. This is not on med list. Pt asking if he should be taking this. Please advise pt. Mila Castro LPN documented in this encounter [facility] 08-06-2022 Note HNO ID: [id number] Author: Arminda Jaimes MD Service: ? Author [...] physician via mail or electronic medical record. [facility] 08-06-2022 History of Presen t illness [...] electronic medical record. documented in this encounter [facility] 07-31-2022 Miscellaneous Notes Spoke with patient [...] Rebecca Esteban LPN documented in this encounter [facility] 07-27-2022 Miscellaneous Notes Desura message not read as of 07/27/2022. Called and spoke with patient. Appt rescheduled to 09/07/2022 at 11:00 AM Meghana Burgess Due to change in provider's schedule, appt on 08/21/2022 needs rescheduled. Patient notified via Desura message on 07/05/2022. Meghana Burgess documented in this encounter [facility] 07-26-2022 Miscellaneous Notes Thanks. Darlyn, a nurse with [facility] calling to state she has discharged pt from custodial today. Pt is doing really well. No call back needed. Thank you. documented in this encounter [facility] 01-11-2023 Miscellaneous Notes Last Office Visit: 07/12/2022 Future Office Visit: 08/09/2022 Requested Prescriptions Pending Prescriptions Disp Refills amLODIPine (NORVASC) 2.5 mg tablet 30 tablet 5 Sig: Take 1 tablet by mouth once daily. Date of Last Labs: 03/02/2022 documented in this encounter [facility] 07-17-2022 Miscellaneous Notes Reviewed and agree. Maverick PT calling from [facility] to report plan of care for patient and PT will visit patient 2 times a week for 3 weeks. PT will work with patient on functional mobility training. Halima Diaz RN documented in this encounter [facility] 07-17-2022 Miscellaneous Notes Reviewed. Barbi from [facility] calling with OT plan of care, one time visit only, patient denies any further OT needs. No call back needed. documented in this encounter [facility] 07-13-2022 Miscellaneous Notes Left detailed message on confidential line Ewa Andino Ma agree Chiki, a nurse with [facility] calling with [facility] Plan of Care for patient: Patient will be seen 1 time per week for 4 weeks for BP monitoring. No call back needed if provider agreeable. Thank you. documented in this encounter [facility] 07-12-2022 Note HNO ID: [id number] Author: Abdulaziz Caldera MD Service: ? Author Type: Physician Type: Progress Notes Filed: 07/17/2022 8:33 AM Note Text: Chief Complaint Patient presents with: Hospital F/U: Admitted 07/09/22 discharged 07/11/22 HPI Richard Roy is a 76 year old male who presents here today for Hospital Discharge Follow up.. Patient was admitted to [facility] from 07/09 to 07/11 after presenting to [...] to follow up with our office and oracle ebs developer. Since discharge yesterday, patient has been doing [...] Benign-Dr. 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 ([facility]) 05/25/2018 History of transfusion Hyperlipidemia LDL goal < 100 04/01/2012 Pulmonary embolus, right ([facility]) 09/25/2013 Status post aortic valve repair 2004 Thoracic aneurysm without mention of rupture Type 2 diabetes mellitus with stage 3 chronic kidney disease, with long-term current use of insulin ([facility]) 06/20/2016 Vitamin D deficiency 01/03/2022 Previous Surgical History PAST SURGICAL HISTORY Procedure Laterality Date ABDOMINAL SURGERY HX AMPUTATION METATARSAL+TOE,SINGLE Right 05/25/2018 with delayed closure on 05/28/18. Dr. Obregon at [facility] COLONOSCOPY 10/10/2021 repeat in 3 years COLONOSCOPY [...] 0.4 mg Take (more content not included)... [facility] 07-12-2022 Miscellaneous Notes Karly was notified Ewa Andino Ma Agree and will follow Karly with [facility] called and reports Pt was discharged yesterday and they received a referral for PT/OT/SN. They are going to do their start of care tomorrow, and she was asking if the provider would be willing to follow. documented in this encounter [facility] 07-09-2022 Miscellaneous Notes Last Office Visit: 04/16/2022 Future Office Visit: 09/17/2022 Requested Prescriptions Pending Prescriptions Disp Refills dulaglutide (TRULICITY) 1.5 mg/0.5 mL pen injector 12 Each 3 Sig: Inject 1.5 mg subcutaneously one time a week. Inject once per week. Discard Pen After Date of Last Labs: 03/02/2022 documented in this encounter [facility] 07-03-2022 Note HNO ID: [id number] Author: Arminda Obregon Service: ? Author Type: [...] RTC in 3-4 months. Arminda Obregon DPM [facility] 07-03-2022 Note HNO ID: [id number] Author: Marcella Cox RN Service: ? Author Type: Registered Nurse Type: Progress Notes Filed: 07/03/2022 11:17 AM Note Text: Patient presents with: Left Foot - Established Patient, Follow Up, nail care Right Foot - Established Patient, Follow Up, nail care [facility] 07-02-2022 Note HNO ID: [id number] Author: Bobbi Garcia MD Service: ? Author Type: Physician Type: Progress Notes Filed: 07/02/2022 12:42 PM Note Text: [facility] SE[facility]IONAL CARDIOLOGY Cardiology ([facility]) [address] [facility] [id number] OUTPATIENT VISIT DATE 07/02/2022 PRIMARY CARE PHYSICIAN: Abdulaziz Caldera [address] [place] [address] HISTORY OF PRESENT ILLNESS: Mr. Roy is [...] HISTORY: From Last OV with Justina Hadley [facility] 01/01/2022: Richard Roy is a 76 year old male who presents for routine follow up. 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 His accompanies him for his office visit today. They both explain to me he was hospitalized at [facility] for 2 days last week for [...] swelling. Records have been requested from [facility]. He is unsure of what testing was completed. An echocardiogram was ordered at his last office visit with me. If this was not completed at [facility], I recommend this be completed for further cardiac evaluation. PAST MEDICAL HISTORY Diagnosis Date BPH (benign prostatic hyperplasia) Cholelithiasis 09/25/2013 Chronic neutrophilia Benign-Dr. 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 ([facility]) 05/25/2018 History of transfusion Hyperlipidemia LDL goal < 100 04/01/2012 Pulmonary embolus, right ([facility]) 09/25/2013 Status post aortic valve repair 2005 Thoracic aneurysm without mention of rupture Type 2 diabetes mellitus with stage 3 chronic kidney disease, with long-term current use of insulin ([facility]) 06/20/2016 Vitamin D deficiency 01/03/2022 PAST SURGICAL HISTORY Procedure Laterality Date ABDOMINAL SURGERY HX AMPUTATION METATARSAL+TOE,SINGLE Right 05/25/2018 with delayed closure on 05/28/18. Dr. Obregon at [facility] COLONOSCOPY 10/10/2021 repeat in 3 years COLONOSCOPY [...] at bedtime.Disp: 3 (more content not included)... [facility] 06-25-2022 Miscellaneous Notes Last appt: 04/16/22 [...] Tania Heller LPN documented in this encounter [facility] 05-16-2022 Miscellaneous Notes Patient has been [...] Mila Castro LPN documented in this encounter [facility] 04-17-2022 History of Presen t illness [...] folllow up after hospitalization in [facility]. he was admitted because of syncopal [...] others Since covid hit they went [place] [place] and was staying in the house by [...] delayed closure on 05/28/18. Dr. Obregon at [facility] COLONOSCOPY 10/10/2021 repeat in 3 years COLONOSCOPY [...] week. Discard Pen After blood sugar diagnostic (Udem[employer] ULTRA TEST) test strip Test blood sugar(s) [...] gait ,unsteady Cannot tandem Tamie Kaur M.D. [facility] [place] Department of Neurology Total time in minutes [...] on at night. documented in this encounter [facility] 04-17-2022 Miscellaneous Notes Reviewed. Behavioral Health Social Work Progress Note Patient identified for [facility] from: PCP Reason for referral: Resources Behavioral Health Resources: Psychology - talk therapy [facility] encounter type: Telephone Encounter Attempts to Outreach: 1 attempt Referral made: Psychology - External Psychology-External referral type: Therapy Reason for external referral: Wait times at [facility] too long Final Disposition: Resources given Patient Discharged?: Yes Patient reported that caregiver was able to meet their needs today?: Yes SW placed a phone call to patient at the request of the PCP. Pt reported he is looking for talk therapy referrals at this time. SW provided the following referrals via phone: [facility] [address], [facility], [facility] [address] *[facility]ing [facility] [address] [address] *counseling [facility] [address], [address] [place] [address] *counseling [facility] [address] [place] [address] FEDERICO Zamudio April 17, 2022 documented in this encounter [facility] 04-16-2022 History of Presen t illness [...] (HCC) 09/08/2010 Diabetic retinopathy of right eye ([facility]) mild Diverticulosis of colon (without [...] delayed closure on 05/28/18. Dr. Obregon at [facility] COLONOSCOPY 10/10/2021 repeat in 3 years COLONOSCOPY [...] week. Discard Pen After blood sugar diagnostic (SecurusTOUCH ULTRA TEST) test strip Test blood sugar(s) [...] Abs Lymph 1.00 - 4.00 k/uL 1.81 Mckean% % 6.9 Abs Mckean <0.87 k/uL 0.86 Eosin% % 3.1 Abs [...] disease, with long-term current use of insulin ([facility]) - ICD9: 250.40, 585.3, V58.67, ICD10: E11.22, N18.31, Z79.4 (primary diagnosis) Controlled. - Continue current medications - Blood glucose monitoring on a 3 times a day schedule - Encouraged regular aerobic exercise and weight loss - Follow up in 6 months, sooner should any other issues arise. - Discussed diabetic education issues of salvage determiner diabetic complications, hypoglycemic symptoms, hyperglycemic symptoms, diet, [...] Abdulaziz Caldera MD documented in this encounter [facility] documented in this encounter [facility] History of Present illness Narrative* Roselia Madrigal, SPRING UPHOLSTERER.MANAGER LABOR DELIVERY - 04/06/2022 9:40 AM EDT 04/06/2022 Patient [...] Benign-Dr. 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 FOR CHOLESTEROL. blood sugar diagnostic (Udemy ULTRA TEST) test strip Test blood sugar(s) [...] SEASONAL QUADRIVALENT HIGH DOSE AGE 65+ - [employer] COVID-19 BIVALENT BOOSTER VACCINE, AGE 12+ YR [...] which included preparing to see the patient, [id number] patient care, completing clinical documentation, obtaining and/or reviewing separately obtained history, performing a medically appropriate examination, and counseling and educating the patient/family/caregiver. documented [facility] this [facility] Miscellaneous Notes* Telephone Encounter - Valencia [...] AM EDT ----- Message from Roselia Madrigal APRN.MANAGER LABOR DELIVERY sent at 04/03/2022 2:47 PM EDT ----- Please forward INR to doctor semiconductors wafer breaker Roselia Madrigal APRN.MANAGER LABOR DELIVERY documented in this encounterMer[facility]09[facility] History of Present illness Narrative* Arminda [...] Care Merlene Martinez LPN documented in this encounterMer[facility]09-16-2022 Instructions* Patient Instructions* Arminda Obregon - [...] (or decreased sensation in your feet) a cumulative effects analyst should always cut your toenails. Be Careful [...] Go to your health care provider or cumulative effects analyst to treat these conditions. documented in this encounterMer[facility]09[facility] History of Present illness Narrative* Rosa [...] 01/12/22 through 03/15/22 Goals updated on 03/23/2022. Kelliher in home exercise program. (Met) Patient will [...] Rosa Elena Poon PT documented in this encounterMer[facility]09[facility]2022 Miscellaneous Notes* Telephone Encounter - Maggy Ibarra Pss - 03/22/2022 1:49 PM EDT Pharmacy verified in [facility] Patient has been identified by name [...] advise. Maggy Ibarra Pss documented in this encounterMer[facility]09[facility]02[facility] History of Present illness Narrative* Rosa [...] Treatment Time Minutes (timed/untimed): 40 Karen Weber, COMPLAINT COORDINATOR Rosa Elena Poon PT documented in this encounterMer[facility]08-29-2022 History of Present illness Narrative* Rosa [...] 41 ALISIA Whiting PT documented in this encounterMer[facility]08-26-2022 Miscellaneous Notes* Addendum Note - Rosa Elena Poon PT - 03/09/2022 1:18 PM EDTAddended by: ROSA ELENA POON on: 03/09/2022 01:18 PM Modules accepted: Orders documented in this encounterMercy Health St. [facility]08-26-2022 History of Present illness Narrative* Rosa [...] 01/12/22 through 03/15/22 Goals updated on 03/09/2022. Kelliher in home exercise program. (Met) Patient will [...] Patient to be seen for Therapeutic exercise (55002);Neuromuscular re-education (52029);Gait Training (12365);Patient/Family/Caregiver Education PLAN FOR NEXT VISIT: Add bridging [...] Rosa Elena Lemon, PT documented in this encounterMer[facility]08-24-2022 Miscellaneous Notes* Telephone Encounter - Amada [...] testing Madison Ma Cma documented in this encounterMercy [facility] St. [facility]08-24-2022 Instructions* Patient Instructions* Abdulaziz Caldera MD - 03/07/2022 11:45 AM EDT Please take 2,000 units of vitamin D daily over the counter. documented in this encounterMercy Health St. [facility]08-24-2022 History of Present illness Narrative* Abdulaziz Caldera MD - 03/07/2022 11:19 AM EDT Chief Complaint Patient presents with: 6 Month Exam ER F/U HPI Richard Roy is a 76 year old male who presents here today for ER Follow Up.. Patient evaluated at [facility] ED on 03/02 for complaint of weakness [...] Benign-Dr. 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 ([facility]) 05/25/2018 History of transfusion Hyperlipidemia LDL goal < 100 04/01/2012 Pulmonary embolus, right ([facility]) 09/25/2013 Status post aortic valve repair 2004 Thoracic aneurysm without mention of rupture Type 2 diabetes mellitus with stage 3 chronic kidney disease, with long-term current use of insulin([facility]) 06/20/2016 Vitamin D deficiency 01/03/2022 Previous Surgical History PAST SURGICAL HISTORY Procedure Laterality Date ABDOMINAL SURGERY HX AMPUTATION METATARSAL+TOE,SINGLE Right 05/25/2018 with delayed closure on 05/28/18. Dr. Obregon at [facility] COLONOSCOPY 10/10/2021 repeat in 3 years COLONOSCOPY [...] ONCE DAILY. FOR CHOLESTEROL. blood sugar diagnostic (Udemy ULTRA TEST) test strip Test blood sugar(s) [...] Abs Lymph 1.00 - 4.00 k/uL 1.81 Mckean% % 6.9 Abs Mckean <0.87 k/uL 0.86 Eosin% % 3.1 Abs [...] PANEL Abdulaziz Caldera MD documented in this encounterMer[facility]08-22-2022 History of Present illness Narrative* Rosa [...] Rosa Elena Poon PT documented in this encounterMer[facility]08-19-2022 History of Present illness Narrative* Rosa [...] Rosa Elena Poon PT documented in this encounterMer[facility]08-15-2022 History of Present illness Narrative* Rosa [...] Rosa Elena Poon PT documented in this encounterMer[facility]08-12-2022 History of Present illness Narrative* Rosa [...] 43 ALISIA Whiting PT documented in this encounterMer[facility]08-03-2022 History of Present illness Narrative* Rosa [...] Rosa Elena Poon PT documented in this encounterMer[facility]. [facility]07-29-2022 History of Present illness Narrative* Rosa [...] 01/12/22 through 03/15/22 Goals updated on 02/09/2022. Kelliher in home exercise program. (Met) Patient will [...] Patient to be seen for Therapeutic exercise (22610);Neuromuscular re-education (22838);Gait Training (89725);Patient/Family/Caregiver Education PLAN FOR NEXT VISIT: Continue to [...] Rosa Elena Poon PT documented in this encounterMer[facility]07-26-2022 Miscellaneous Notes* Telephone Encounter - Nola [...] patient. Nola Castro Pss documented in this encounterMercy Health St. [facility]07-22-2022 History of Present illness Narrative* Cortney [...] 43 ALISIA Whiting, PT documented in this encounterMer[facility]. [facility]07-21-2022 Miscellaneous Notes* Telephone Encounter - Mila [...] No need to notify patient. Eulalia Gaston [facility] documented in this encounterMercy Health St. [facility]07-19-2022 History of Present illness Narrative* Justina [...] 43 ALISIA Whiting PT documented in this encounterMer[facility]07-12-2022 Miscellaneous Notes* Telephone Encounter - Rebecca [...] you. Rebecca Gonzales RN documented in this encounterMer[facility]. [facility]07-12-2022 History of Present illness Narrative* Chiki [...] 45 ALISIA Whiting PT documented in this encounterMer[facility]. [facility]07-08-2022 Miscellaneous Notes* Telephone Encounter - Maggy [...] on driving. Please advise. documented in this encounterMer[facility] Health St. [facility]07-01-2022 History of Present illness Narrative* Rosa [...] of Care: created on 01/12/22 through 03/15/22 Kelliher in home exercise program. Patient will demonstrate [...] Planned: 16 Planned Treatment Interventions: Therapeutic exercise (49687);Neuromuscular re- education (24267);Gait Training (87030);Patient/Family/Caregiver Education PLAN FOR NEXT VISIT: Review HEP [...] Rosa Elena Poon PT documented in this encounterMer[facility]07-01-2022 Miscellaneous Notes* Telephone Encounter - Ewa Andino Ma - 01/12/2022 11:47 AM EDT Patient was notified Ewa Andino Ma * Telephone Encounter - Roselia Madrigal APRN.CNP - 01/12/2022 10:48 AM EDT At this time he should refrain from driving until he is cleared by neurology. Rosleia Madrigal APRN.CNP * Telephone Encounter - Ewa [...] Pending consult. Please advise documented in this encounterMercy Health St. [facility]06-29-2022 Miscellaneous Notes* Telephone Encounter - Mila [...] his syncope/collapse. Thank you! documented in this encounterMercy Health St. [facility]06-29-2022 Miscellaneous Notes* Result QuickNote - Justina Hadley APRN.CNP - 01/10/2022 11:33 AM EDT Please call patient and notify him. Echocardiogram is stable. Valve replacement function is stable.No cardiac structure/function changes to explain his syncope/collapse. Thank you! documented in this encounterMercy Health St. [facility]06-24-2022 History of Present illness Narrative* Tamie [...] medical record. REFERRING PHYSICIAN: Abdulaziz Caldera [address] [facility] [address] Accompanied by: Spouse ASSESSMENT: 76 year old [...] folllow up after hospitalization in [facility]. he was admitted because of syncopal [...] others Since covid hit they went [place] and was staying in the house by [...] delayed closure on 05/28/18. Dr. Obregon at [facility] COLONOSCOPY 10/10/2021 repeat in 3 years COLONOSCOPY [...] by mouth once daily. blood sugar diagnostic ([employer]UCH ULTRA TEST) test strip Test blood sugar(s) [...] gait ,unsteady Cannot tandem Tamie Kaur M.D. [facility] [place] Department of Neurology January 05, 2022 Total [...] lights on at night. documented in this encounterMercy Health St. [facility]06-21-2022 Miscellaneous Notes* Telephone Encounter - Justina Martinez LPN - 01/02/2022 8:06 AM EDT I spoke to and informed him of Justina's response to lipid panel results. Patient voiced understanding. Justina Martinez LPN * Telephone Encounter - Justina Martinez LPN - 01/02/2022 7:43 AM EDT ----- Message from Justina Hadley APRN.MANAGER LABOR DELIVERY sent at 01/02/2022 7:38 AM EDT ----- Please call patient and notify him cholesterol has good control. Thank you! documented in this encounterMercy Health St. [facility]06-20-2022 History of Present illness Narrative* Abdulaziz Caldera MD - 01/01/2022 10:20 AM EDT Chief Complaint Patient presents with: Hospital Follow Up: [facility] discharged 12/29/21 HPI Richard Roy is a 76 year old male who presents here today for Hospital Discharge Follow up. Accompanied today by his . Patient admitted to [facility] from 12/27 to 12/29 after presenting to the [facility] ED after being found slumped over his tractor at home earlier in the afte[place]oon. Had been working outside for unknown period of time. Had only eaten cookies and milk that day. Heat index over 100. Back to baseline at the time of evaluation by hospitalist at [facility]. Found to have leukocytosis at [place] [facility] and elevated lactic acid level. Noted [...] echo since it was not completed at [facility]. No other changes to regimen. Patient incontinent [...] kidney disease, with long-term current use of insulin([facility]) 06/20/2016 Previous Surgical History PAST SURGICAL HISTORY Procedure Laterality Date ABDOMINAL SURGERY HX AMPUTATION METATARSAL+TOE,SINGLE Right 05/25/2018 with delayed closure on 05/28/18. Dr. Obregon at [facility] COLONOSCOPY 10/10/2021 repeat in 3 years COLONOSCOPY [...] by mouth once daily. blood sugar diagnostic (Udemy ULTRA TEST) test strip Test blood sugar(s) [...] SCRN Abdulaziz Caldera MD documented in this encounterMercy Health St. [facility]06-20-2022 Instructions* Patient Instructions* Justina Hadley APRN.MANAGER LABOR DELIVERY - 01/01/2022 9:05 AM EDT High Blood [...] risk for high blood pressure. Developed by [employer]. Published by [employer]. Copyright 2014 [employer] and/or one of its subsidiaries. All rights reserved. documented in this encounterMercy Health St. [facility]06-20-2022 History of Present illness Narrative* Justina [...] to me he was hospitalized at [facility] for 2 days last week for [...] swelling. Records have been requested from [facility]. He is unsure of what testing was completed. An echocardiogram was ordered at his last office visit with me.If this was not completed at [facility], I recommend this be completed for further cardiac evaluation. PAST MEDICAL HISTORY Diagnosis Date Cholelithiasis 09/25/2013 Chronic neutrophilia Benign-Dr. 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 Dr. Obregon at [facility] COLONOSCOPY 10/10/2021 repeat in 3 years COLONOSCOPY [...] injection (DEFINITY) INTRAVENOUS DIRECTED PRN Justina Hadley, SPRING UPHOLSTERER.MANAGER LABOR DELIVERY sodium chloride 0.9 % (flush) 10 mL (BD POSIFLUSH) 10 mL INTRAVENOUS DIRECTED PRN Justina Hadley, SPRING UPHOLSTERER.MANAGER LABOR DELIVERY Review of Systems Constitutional: Negative for chills, [...] of his head CAD -MILD on [facility] 2004 -stress testing 2013 with [...] 01, 2022, 8:57 AM documented in this encounterMercy Health St. [facility]06-19-2022 Note. MICRO - Microbiology PROCEDURE: Blood Culture (bacterial) [*1] SOURCE: Blood BODY SITE: COLLECTED DATE/TIME: 12/27/2021 17:43 EDT RECEIVED DATE/TIME: 12/28/2021 14:37 EDT START DATE/TIME: 12/28/2021 14:37 EDT FREE TEXT SOURCE: FINAL REPORTS Final Report [] Verified Date/Time/Personnel: 12/31/2021 07:29 EDT Staphylococcus epidermidis Isolated from anaerobe bottle only. Refer to previous culture for susceptibility. [id number] PRELIMINARY REPORTS Preliminary Report [] Verified Date/Time/Personnel: 12/30/2021 09:39 EDT Staphylococcus epidermidis Isolated from anaerobe bottle only. Refer to previous culture for susceptibility. [id number] Preliminary Report [] Verified Date/Time/Personnel: 12/28/2021 15:59 EDT Culture has been received in lab and is no growth to date. Routine cultures are held for 5 days. STAINS GSANA [] Verified Date/Time/Personnel: 12/29/2021 14:08 EDT Gram Positive Cocci in clusters Performing Locations *1: This test was performed at: [facility], [address] [place] [address], [facility] , [facility] ([place])12-31-2021 Note. MICRO - Microbiology PROCEDURE: Blood Culture [...] Locations *1: This test was performed at: [facility], [address] [place] [address], [id number] , [facility] ([place])12-27-2021 SARS-CoV-2 (COVID-19) RNA ANGELY+probe Ql (Nph)Positive 2 *ABN* (12/27/21 5:43 PM)AO Auto Urine SSComment on above:Result Comment: positive covid cvrb s. tona Evaluation + Plan note Diagnostic Tests Pending * Urinalysis 12/27/21 * Blood Culture (bacterial) 12/27/21 * Blood Culture (bacterial) 12/27/21 [facility] 06-02-2022 History of Present illness Narrative* Abdulaziz Caldera MD - 12/14/2021 3:13 PM EDT Chief Complaint Patient presents with: Covid Follow Up HPI Richard Roy is a 76 year old male who presents here today for Above Complaints.. Patient positive for COVID in the [facility] ER last week on 12/06. Spoke with [...] Benign-Dr. 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 Dr. Obregon at [facility] COLONOSCOPY 10/10/2021 repeat in 3 years COLONOSCOPY [...] by mouth once daily. blood sugar diagnostic ([employer]OUCH ULTRA TEST) test strip Test blood sugar(s) [...] detail. Abdulaziz Caldera MD documented in this encounterMer[facility] History of Present illness Narrative* Abdulaziz [...] today for Above Complaints.. Patient evaluated at [facility] ER on 12/06 for complaint of generalized weakness, cough, and feeling off balance and developed cough which started on 12/04. Denied other COVID symptoms at that time. Lab workup in the ER was unremarkable aside from positive COVID test and INR of 3.3. UA unremarkable. CXR showed some ill defined densities in RLL which was likely 2/2 COVID infection. [place] to be well enough and discharged home [...] amputation of first toe of right foot ([facility]) 05/25/2018 History of transfusion Hyperlipidemia LDL goal < 100 04/01/2012 Pulmonary embolus, right ([facility]) 09/25/2013 Status post aortic valve repair 2005 Thoracic aneurysm without mention of rupture Type 2 diabetes mellitus with stage 3 chronic kidney disease, with long-term current use of insulin([facility]) 06/20/2016 Previous Surgical History PAST SURGICAL HISTORY Procedure Laterality Date ABDOMINAL SURGERY HX AMPUTATION METATARSAL+TOE,SINGLE Right 05/25/2018 with delayed closure on 05/28/18. Dr. Obregon at [facility] COLONOSCOPY 10/10/2021 repeat in 3 years COLONOSCOPY [...] by mouth once daily. blood sugar diagnostic ([employer] ULTRA TEST) test strip Test blood sugar(s) [...] these interactions. Not interested in driving to [facility] for IV ab. Since his symptoms are mild, he would prefer to rest at home. Discussed risks and benefits of treatment and that he is high risk for severe infection. Red flags for re-assessment reviewed with patient in detail. I spent a total of 25 minutes on the date of the service which included preparing to see the patient, [id number] patient care, completing clinical documentation, obtaining and/or reviewing separately obtained history, performing a medically appropriate examination, counseling and educating the pat ient/family/caregiver and ordering medications, tests, or procedures. Abdulaziz Caldera MD documented in this encounterMer[facility]. [facility]05-27-2022 Miscellaneous Notes* Telephone Encounter - Abdulaziz [...] with one of our providers or with [employer] care online. * Telephone Encounter - Rosa Elena Martinez Pss - 12/08/2021 2:16 PM EDT Patient called stating he was at [facility] ER on 12/06. Tested positive for covid. Patient was informed tocontact the office within 5 days to inform. Please advise patient when he can be seen in office. documented in this encounterMercy Health St. [facility]05-09-2022 Miscellaneous Notes* Telephone Encounter - Eulalia Gaston [facility] - 11/20/2021 9:49 AM EDT Patient has been identified by name and date of : Yes Pending Prescriptions Disp Refills METFORMIN ER 500 MG 24 HR TABLET,EXTENDED RELEASE Sig: Take 1 tablet by mouth daily with breakfast. NUHA: No OMAR-09/06/21 Labs-08/30/21 NOV-03/07/22 RX INSTRUCTIONS: Patient aware RX will be sent to pharmacy. No need to notify patient. [facility] documented in this encounterMercy Health St. [facility]04-11-2022 Instructions* Patient Instructions* Marcella Park PA-C - 10/23/2021 1:25 PM EDT -Recommend daily fiber supplement and plenty of fluids The following instructions are important for you related to your office visit today with the [facility]. INSTRUCTIONS FOR DIVERTICULA I recommend [...] you should contact our office immediately @ [phone] and ask to be transferred to the General Surgery department. The following instructions are important for you related to your office visit today with the [facility]. INSTRUCTIONS FOLLOWING A POLYP FOUND [...] you should contact our office immediately @ [phone] and ask to be transferred to the General Surgery department. documented in this encounterMercy Health St. [facility]04-11-2022 History of Present illness Narrative* Marcella Park PA-C - 10/23/2021 1:09 PM EDT FOLLOW UP VISIT - ENDOSCOPY NAME: Richard Bonilla [facility] NO.: [id number] DATE OF SERVICE: 10/23/2021 : 1945 REFERRING [...] which included preparing to see the patient, [id number] patient care, completing clinical documentation, obtaining and/or reviewing separately obtained history, counseling and educating the patient/family/caregiver, communicating with other HCPs (not separately reported), independently interpreting results (not separately reported) and communicating results to the patient/family/caregiver. Marcella Park PA-C documented in this encounterMercy Health St. [facility]03-29-2022 Nurse Note* Caroline Larkin RN - [...] answered. Caroline Larkin RN documented in this encounterMercy Health St. [facility]03-29-2022 History and physical note * Richard Jones [...] Benign-Dr. 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 Dr. Obregon at [facility] COLONOSCOPY FLX DX W/COLLJ SPEC WHEN PFRMD [...] by mouth once daily. blood sugar diagnostic ([employer]UCH ULTRA TEST) test strip Test blood sugar(s) [...] patient was offered a surgery/procedure [facility] a [facility]. I have counseled the patient [...] diagnosis) Marcella Park PA-C documented in this encounterMercy Health St. [facility]03-24-2022 Miscellaneous Notes* Telephone Encounter - Mila [...] send both by 10/06/21, so he can black pickler. Patient aware RX will be sent to pharmacy. No need to notify patient. Violette Lockhart documented in this encounterMercy Health St. [facility]03-23-2022 Miscellaneous Notes* Telephone Encounter - Nelson [...] advise, Halima Diaz RN documented in this encounterMercy Health St. [facility]02-02-2022 Miscellaneous Notes* Telephone Encounter - Garland Vicente - 08/16/2021 9:36 AM EST 10-10-2021 [facility] documented in this encounterMercy Health St. [facility]01-13-2022 NoteHNO ID: [id number] Author: REY Burt Service: Radiology Author Type: Director [employer] Type: Progress Notes Filed: 07/27/2021 10:50 AM [...] Roy DATE: July 27, 2021 TIME: 10:49 [id number] History of Past illness Narrative* Problem Noted [...] of this encounter (statuses as of 10/04/2021) [facility] History of Past illness Narrative* Problem [...] of this encounter (statuses as of 10/05/2021) [facility] of Past illness Narrative* Problem [...] of this encounter (statuses as of 10/11/2021) [facility] of [facility] illness Narrative* Problem [...] of this encounter (statuses as of 10/16/2021) [facility] Narrative* Problem [...] of this encounter (statuses as of 10/27/2021) [facility] Narrative* Problem [...] of this encounter (statuses as of 11/20/2021) [facility] Narrative* Problem [...] of this encounter (statuses as of 12/12/2021) [facility] Narrative* Problem [...] of this encounter (statuses as of 12/13/2021) [facility] Narrative* Problem [...] of this encounter (statuses as of 12/14/2021) [facility] Narrative* Problem [...] of this encounter (statuses as of 01/01/2022) [facility] Narrative* Problem [...] of this encounter (statuses as of 01/02/2022) [facility] Narrative* Problem [...] of this encounter (statuses as of 01/02/2022) [facility] Narrative* Problem [...] of this encounter (statuses as of 01/06/2022) [facility] Narrative* Problem [...] of this encounter (statuses as of 01/10/2022) [facility] Narrative* Problem [...] of this encounter (statuses as of 01/11/2022) [facility] Narrative* Problem [...] of this encounter (statuses as of 01/12/2022) [facility] Narrative* Problem [...] of this encounter (statuses as of 01/12/2022) [facility] Narrative* Problem [...] of this encounter (statuses as of 01/19/2022) [facility] Narrative* Problem [...] of this encounter (statuses as of 01/23/2022) [facility] Narrative* Problem [...] of this encounter (statuses as of 01/25/2022) [facility] Narrative* Problem [...] of this encounter (statuses as of 01/30/2022) [facility] Narrative* Problem [...] of this encounter (statuses as of 02/01/2022) [facility] Narrative* Problem [...] of this encounter (statuses as of 02/02/2022) [facility] Narrative* Problem [...] of this encounter (statuses as of 02/02/2022) [facility] Narrative* Problem [...] of this encounter (statuses as of 02/06/2022) [facility] Narrative* Problem [...] of this encounter (statuses as of 02/09/2022) [facility] Narrative* Problem [...] of this encounter (statuses as of 02/14/2022) [facility] Narr[facility]* Problem [...] of this encounter (statuses as of 02/26/2022) [facility] Narrative* Problem [...] of this encounter (statuses as of 03/02/2022) [facility] Narrative* Problem [...] of this encounter (statuses as of 03/05/2022) [facility]* Problem [...] of this encounter (statuses as of 03/07/2022) [facility] N[facility]* Problem [...] of this encounter (statuses as of 03/08/2022) [facility] Narrative* Problem [...] of this encounter (statuses as of 03/09/2022) [facility] Narrative* Problem [...] of this encounter (statuses as of 03/12/2022) [facility] Narr[facility]* Problem [...] of this encounter (statuses as of 03/16/2022) [facility] Narrative* Problem [...] of this encounter (statuses as of 03/23/2022) [facility] Narrative* Problem [...] of this encounter (statuses as of 04/03/2022) [facility] N[facility]* Problem [...] of this encounter (statuses as of 04/04/2022) [facility]* Problem [...] of this encounter (statuses as of 04/06/2022) [facility]* Problem [...] of this encounter (statuses as of 04/17/2022) [facility]* Problem [...] of this encounter (statuses as of 04/17/2022) [facility]* Problem [...] of this encounter (statuses as of 04/19/2022) [facility]* Problem [...] of this encounter (statuses as of 05/16/2022) [facility]* Problem [...] of this encounter (statuses as of 06/25/2022) [facility]* Problem [...] of this encounter (statuses as of 07/14/2022) [facility]* Problem [...] of this encounter (statuses as of 07/15/2022) [facility]* Problem [...] of this encounter (statuses as of 07/18/2022) [facility]* Problem [...] of this encounter (statuses as of 07/18/2022) [facility]* Problem [...] of this encounter (statuses as of 07/19/2022) [facility]* Problem [...] of this encounter (statuses as of 07/20/2022) [facility]* Problem [...] of this encounter (statuses as of 07/25/2022) [facility]* Problem [...] of this encounter (statuses as of 07/26/2022) [facility]* Problem [...] of this encounter (statuses as of 07/27/2022) [facility]* Problem [...] of this encounter (statuses as of 07/31/2022) [facility]* Problem [...] of this encounter (statuses as of 08/06/2022) [facility]* Problem [...] of this encounter (statuses as of 08/07/2022) [address]13[address]2015 History of Past illness Narrative* Problem [...] of this encounter (statuses as of 08/09/2022) [address]13[address]2015 History of Past illness Narrative* Problem [...] of this encounter (statuses as of 08/14/2022) [facility]* Problem [...] of this encounter (statuses as of 08/16/2022) [facility]* Problem [...] of this encounter (statuses as of 08/28/2022) [facility]* Problem [...] of this encounter (statuses as of 09/07/2022) [facility]* Problem [...] of this encounter (statuses as of 09/09/2022) [facility]* Problem [...] of this encounter (statuses as of 09/25/2022) [facility]* Problem [...] of this encounter (statuses as of 10/23/2022) [facility]* Problem [...] of this encounter (statuses as of 11/20/2022) [facility]* Problem [...] of this encounter (statuses as of 11/20/2022) [facility]* Problem [...] of this encounter (statuses as of 12/13/2022) [facility]* Problem [...] of this encounter (statuses as of 12/14/2022) [facility]* Problem [...] of this encounter (statuses as of 12/18/2022) [facility]* Problem [...] of this encounter (statuses as of 12/25/2022) [facility]* Problem [...] of this encounter (statuses as of 12/27/2022) [facility]* Problem [...] of this encounter (statuses as of 12/31/2022) [facility]* Problem [...] of this encounter (statuses as of 01/03/2023) [facility]* Problem [...] of this encounter (statuses as of 01/04/2023) [facility]* Problem [...] of this encounter (statuses as of 01/04/2023) [facility]ative* Problem [...] of this encounter (statuses as of 01/25/2023) [facility] Narrative* Problem [...] of this encounter (statuses as of 01/29/2023) [facility] note* Diagnosis Type 2 diabetes mellitus with diabetic neuropathy, with long-term current use of insulin (HCC) Status post aortic valve repair Other postprocedural status Chronic anticoagulation Long-term (current) use of anticoagulants documented [facility] this encounter [facility] Diagnosis Colon cancer screening Special screening for malignant neoplasms, colon [facility] Colon cancer screening- Primary Special screening for malignant neoplasms, colon [facility]* Diagnosis Diverticulosis- Primary Diverticulosis of colon (without mention of hemorrhage) Cecal polyp [facility] Diagnosis COVID-19- Primary [facility]* Diagnosis COVID-19- Primary [facility] Diagnosis Hyperlipidemia with target LDL less than 100- Primary Other and unspecified hyperlipidemia Primary hypertension Unspecified essential hypertension Thoracic aortic aneurysm without rupture (HCC) Thoracic aneurysm without mention of rupture Coronary artery disease involving [place] coronary artery of [place] heart without angina pectoris Syncope, unspecified syncope type Obesity, Class II, BMI 35-39.9 Obesity, unspecified [facility]* Diagnosis Syncope and collapse- Primary Altered mental status, unspecified altered mental status type Urinary incontinence, unspecified type Benign prostatic hyperplasia with nocturia Nocturia Vitamin D deficiency, unspecified Wound of left lower extremity, initial encounter Encounter for screening for malignant neoplasm of prostate Special screening for malignant neoplasm of prostate [facility]* Diagnosis Abnormality of gait due to impairment of balance- Primary Altered mental status, unspecified altered mental status type [facility]* Diagnosis Chronic anticoagulation Long-term (current) use of anticoagulants Thoracic aortic aneurysm without rupture (HCC) Thoracic aneurysm without mention of rupture Status post aortic valve repair Other postprocedural status [facility]* Diagnosis Type 2 diabetes mellitus with diabetic neuropathy, with long-term current use of insulin (HCC)- Primary [facility]* Diagnosis Abnormality of gait due [...] vitamin D deficiency [facility]* Diagnosis Type 2 diabetes mellitus with stage 3 chronic kidney disease, with long-term current use of insulin (HCC) [facility] Diagnosis Abnormality of gait due to impairment of balance- Primary [facility]* Diagnosis Type 2 diabetes mellitus with diabetic neuropathy, with long-term current use of insulin ([facility]) [facility]* Diagnosis Abnormality of gait due [...] Abnormal coagulation profile ANTHONY (acute kidney injury) ([facility]) Acute kidney failure, unspecified [facility]* Diagnosis Abnormality of gait due [...] polyneuropathy associated with type 2 diabetes mellitus ([facility]) [facility] Generalized weakness- Primary Other malaise and fatigue Encounter for immunization Need for other specified prophylactic vaccination against single bacterial disease Mild depression Depressive disorder, not elsewhere classified [facility] Diagnosis Generalized anxiety disorder- Primary [...] mellitus (HCC) NSTEMI (non-ST elevated myocardial infarction) ([facility]) Acute myocardial infarction, subendocardial infarction, [...] disease, with long-term current use of insulin ([facility]) 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 Diagnosis Driving safety issue- Primary Other specified personal history presenting hazards to health [facility] Diagnosis Onychomycosis- Primary Dermatophytosis of nail Pain in toe of left foot Pain in limb Amputated toe of right foot ([facility]) Diabetic polyneuropathy associated with type 2 diabetes mellitus ([facility]) [facility] Diagnosis Spinal stenosis, lumbar region, without neurogenic claudication- Primary Primary osteoarthritis of both knees Primary localized osteoarthrosis, lower leg [facility] Diagnosis Spinal stenosis, lumbar region, without neurogenic claudication- Primary Primary osteoarthritis of both knees Primary localized osteoarthrosis, lower leg [facility] Diagnosis Spinal stenosis, lumbar region, without neurogenic claudication- Primary Primary osteoarthritis of both knees Primary localized osteoarthrosis, lower leg [facility] Diagnosis Spinal stenosis, lumbar region, without neurogenic claudication- Primary Primary osteoarthritis of both knees Primary localized osteoarthrosis, lower leg [facility] Diagnosis Spinal stenosis, lumbar region, without neurogenic claudication- Primary Primary osteoarthritis of both knees Primary localized osteoarthrosis, lower leg [facility] Diagnosis Spinal stenosis, lumbar region, without neurogenic claudication- Primary Primary osteoarthritis of both knees Primary localized osteoarthrosis, lower leg [facility] Narrative No data available for this section [facility] Hospital Discharge instructions No data available for this section [facility] Progress note No data available for this section [facility] Reason for referral (narrative)* Outpatient Procedure (Routine) - Closed Specialty Diagnoses / Procedures Referred By Contac t Referred To Contact [facility] Diagnoses Colon cancer screening Procedures COLONOSCOPY SCREENING COLONOSCOPY FLX DX W/COLLJ SPEC WHEN PFMarcella Cho PA-C [address] [place] [address] [facility] [place] [address] [phone] Referral ID Status Reason Start Date Expiration Date V isits Requested Visits Authorized [id number] Closed Auto-Generate d Referral 08/16/2021 08/16/2022 1 1 [facility] for referral (narrative)* Outpatient Procedure (Routine) - Closed Specialty Diagnoses / Procedures Referred By Contac t Referred To Contact [facility] Diagnoses Colon cancer screening Procedures COLONOSCOPY SCREENING COLONOSCOPY FLX DX W/COLLJ SPEC WHEN Marcella Alatorre PA-C [address] [place] [address] [facility] [place] [address] [place] [id number] Referral ID Status Reason Start Date Expiration Date V isits Requested Visits Authorized [id number] Closed Auto-Generate d Referral 08/16/2021 08/16/2022 1 1 [facility] for visit Narrative* Outpatient Procedure (Routine) - Closed Specialty Diagnoses / Procedures Referred By Contac t Referred To Contact [facility] Diagnoses Colon cancer screening Procedures COLONOSCOPY SCREENING COLONOSCOPY FLX DX W/COLLJ SPEC WHEN PFMarcella Cho PA-C [address] [place] [address] [facility] [address] [place] [id number] Referral ID Status Reason Start Date Expiration Date V isits Requested Visits Authorized [id number] Closed Auto-Generate d Referral 08/16/2021 08/16/20[address] N[facility]* Outpatient Procedure (Routine) - Closed Specialty Diagnoses / Procedures Referred By Linn carrillo Referred [facility] Diagnoses Chronic anticoagulation Thoracic aortic aneurysm without rupture (HCC) Status post aortic valve repair Procedures ECHO TTE W/DOPPLER, COMPLETE Justina Hadley, SPRING UPHOLSTERER.MANAGER LABOR DELIVERY [address] [place] [address] [facility] [address] [address] Referral ID Status Reason Start Date Expiration Date V isits Requested Visits Authorized [id number] Closed Auto-Generate d Referral 07/03/2021 07/03/2022 [address] [facility] Advance Directives No Advanced Directives Records FoundDocuments on File Type Date Recorded Patient Biller Expl anation Advance Directive(s) 09/12/2021 7:14 AM Documents on File Type Date Recorded Patient Biller Expl anation Advance Directive(s) 09/12/2021 7:14 AM [...] Diagnoses Driving safety issue Procedures CONSULT TO CLUTCH MECHANIC OCCUPATIONAL THERAPY EVAL HIGH COMPLEX 60 MINS Tamie Kaur MD [address] [place] [address] [facility] [address] [place] [id number] Referral ID Status Reason Start Date Expiration Date Visits Requested Visits Authorized [id number] Authorized PCP Requested Referral Auto-Generate d Referral 09/07/2022 09/07/2023 99 99 Specialty Diagnoses / Procedures Referred By Contac t Referred To Contact [facility] Diagnoses Polyneuropathy Procedures CONSULT TO PHYSICAL THERAPY PHYSICAL THERAPY EVALUATION HIGH COMPLEX 45 MINS Tamie Kaur MD [address] [place] [address] [facility] [address] [address] Referral ID Status Reason Start Date Expiration Date Visits Requested Visits Authorized [id number] Authorized PCP Requested Referral Auto-Generate d Referral 04/17/2022 04/17/2023 99 99 Specialty Diagnoses / Procedures Referred By Contac t Referred To Contact Psychology Diagnoses Generalized anxiety disorder Procedures CONSULT TO PSYCHOLOGY OFFICE/OUTPATIENT [facility] 60-74 MINUTES Tamie Kaur MD [address] [phone] Referral ID Status Reason Start Date Expiration Date Visits Requested Visits Authorized [id number] Pending Review PCP Requested Referral 04/17/2022 04/17/2023 1 1 Specialty Diagnoses / Procedures Referred By Contac t Referred To Contact Podiatry Diagnoses Type 2 diabetes mellitus with diabetic neuropathy, with long-term current use of insulin (HCC) Procedures CONSULT TO PODIATRY OFFICE/OUTPATIENT [facility] 60-74 MINUTES PodlogRoselia hernandez APRN.MANAGER LABOR DELIVERY [address] [place] [address] Referral ID Status Reason Start Date Expiration Date Visits Requested Visits Authorized [id number] Authorized PCP Requested Referral 01/12/2022 01/11/2023 1 1 Specialty Diagnoses / Procedures Referred By Contac t Referred To Contact [facility] Diagnoses Altered mental status, unspecified altered mental status type Procedures CONSULT TO SPEECH THERAPY OFFICE/OUTPATIENT [facility] 60-74 MINUTES Tamie Kaur MD [address] [place] [id number] [facility] [address] [address] Referral ID Status Reason Start Date Expiration Date Visits Requested Visits Authorized [id number] Authorized Auto-Generat ed Referral 01/05/2022 01/05/2023 99 99 Specialty Diagnoses / Procedures Referred By Contac t Referred To Contact [facility] Diagnoses Abnormality of gait due to impairment of balance Procedures CONSULT TO PHYSICAL THERAPY PHYSICAL THERAPY EVALUATION HIGH COMPLEX 45 MINS Tamie Kaur MD [address] [place] [address] [place] [place] [address] Referral ID Status Reason Start Date Expiration Date Visits Requested Visits Authorized [id number] Authorized PCP Requested Referral Auto-Generate d Referral 01/05/2022 01/05/2023 99 99 Specialty Diagnoses / Procedures Referred By Contac t Referred To Contact [facility] Diagnoses Altered mental status, unspecified altered mental status type Procedures EPIL EEG ROUTINE ELECTROENCEPHALOGRAM REC COMA/SLEEP ONLY Tamie Kaur MD [address] [place] [address] [place] [address] Referral ID Status Reason Start Date Expiration Date Visits Requested Visits Authorized [id number] Authorized Auto-Generat ed Referral 01/05/2022 01/05/2023 1 1 Specialty Diagnoses / Procedures Referred By Contac t Referred To Contact Neurology Diagnoses Altered mental status, unspecified altered mental status type Procedures CONSULT TO NEUROLOGY OFFICE/OUTPATIENT [facility] MDM 60-74 MINUTES Abdulaziz Caldera MD [address] [place] [address] Referral ID Status Reason Start Date Expiration Date Visits Requested Visits Authorized [id number] Authorized PCP Requested Referral 01/01/2022 01/01/2023 1 [...] or prosecute any alcohol or drug abuse patient.[facility] the event this information is protected by the Federal Confidentiality of Alcohol and Drug Abuse Patient Records regulations: The Federal rules restrict any use of the information to criminally investigate or prosecute any alcohol or drug abuse patient.[facility] the event this information is protected by the Federal Confidentiality of Alcohol and Drug Abuse Patient Records regulations: The Federal rules restrict any use of the information to criminally investigate or prosecute any alcohol or drug abuse patient.[facility] the event this information is protected by the Federal Confidentiality of Alcohol and Drug Abuse Patient Records regulations: The Federal rules restrict any use of the information to criminally investigate or prosecute any alcohol or drug abuse patient.[facility] the event this information is protected by the Federal Confidentiality of Alcohol and Drug Abuse Patient Records regulations: The Federal rules restrict any use of the information to criminally investigate or prosecute any alcohol or drug abuse patient.[facility]In the event this information is protected by the Federal Confidentiality of Alcohol and Drug Abuse Patient Records regulations: The Federal rules restrict any use of the information to criminally investigate or prosecute any alcohol or drug abuse patient.[facility] HospitalIn the event this information is protected by the Federal Confidentiality of Alcohol and Drug Abuse Patient Records regulations: The Federal rules restrict any use of the information to criminally investigate or prosecute any alcohol or drug abuse patient.[facility] HospitalIn the event this information is protected by the Federal Confidentiality of Alcohol and Drug Abuse Patient Records regulations: The Federal rules restrict any use of the information to criminally investigate or prosecute any alcohol or drug abuse patient.[facility] HospitalIn the event this information is protected by the Federal Confidentiality of Alcohol and Drug Abuse Patient Records regulations: The Federal rules restrict any use of the information to criminally investigate or prosecute any alcohol or drug abuse patient.[facility] HospitalIn the event this information is protected by the Federal Confidentiality of Alcohol and Drug Abuse Patient Records regulations: The Federal rules restrict any use of the information to criminally investigate or prosecute any alcohol or drug abuse patient.[facility] HospitalIn the event this information is protected by the Federal Confidentiality of Alcohol and Drug Abuse Patient Records regulations: The Federal rules restrict any use of the information to criminally investigate or prosecute any alcohol or drug abuse patient.[facility] HospitalIn the event this information is protected by the Federal Confidentiality of Alcohol and Drug Abuse Patient Records regulations: The Federal rules restrict any use of the information to criminally investigate or prosecute any alcohol or drug abuse patient.[facility] HospitalIn the event this information is protected by the Federal Confidentiality of Alcohol and Drug Abuse Patient Records regulations: The Federal rules restrict any use of the information to criminally investigate or prosecute any alcohol or drug abuse patient.[facility] HospitalIn the event this information is protected by the Federal Confidentiality of Alcohol and Drug Abuse Patient Records regulations: The Federal rules restrict any use of the information to criminally investigate or prosecute any alcohol or drug abuse patient.[facility] HospitalIn the event this information is protected by the Federal Confidentiality of Alcohol and Drug Abuse Patient Records regulations: The Federal rules restrict any use of the information to criminally investigate or prosecute any alcohol or drug abuse patient.[facility] HospitalIn the event this information is protected by the Federal Confidentiality of Alcohol and Drug Abuse Patient Records regulations: The Federal rules restrict any use of the information to criminally investigate or prosecute any alcohol or drug abuse patient.[facility] HospitalIn the event this information is protected by the Federal Confidentiality of Alcohol and Drug Abuse Patient Records regulations: The Federal rules restrict any use of the information to criminally investigate or prosecute any alcohol or drug abuse patient.[facility] HospitalIn the event this information is protected by the Federal Confidentiality of Alcohol and Drug Abuse Patient Records regulations: The Federal rules restrict any use of the information to criminally investigate or prosecute any alcohol or drug abuse patient.[facility] HospitalIn the event this information is protected by the Federal Confidentiality of Alcohol and Drug Abuse Patient Records regulations: The Federal rules restrict any use of the information to criminally investigate or prosecute any alcohol or drug abuse patient.[facility] HospitalIn the event this information is protected by the Federal Confidentiality of Alcohol and Drug Abuse Patient Records regulations: The Federal rules restrict any use of the information to criminally investigate or prosecute any alcohol or drug abuse patient.[facility] HospitalIn the event this information is protected by the Federal Confidentiality of Alcohol and Drug Abuse Patient Records regulations: The Federal rules restrict any use of the information to criminally investigate or prosecute any alcohol or drug abuse patient.[facility] HospitalIn the event this information is protected by the Federal Confidentiality of Alcohol and Drug Abuse Patient Records regulations: The Federal rules restrict any use of the information to criminally investigate or prosecute any alcohol or drug abuse patient.[facility] HospitalIn the event this information is protected by the Federal Confidentiality of Alcohol and Drug Abuse Patient Records regulations: The Federal rules restrict any use of the information to criminally investigate or prosecute any alcohol or drug abuse patient.[facility] HospitalIn the event this information is protected by the Federal Confidentiality of Alcohol and Drug Abuse Patient Records regulations: The Federal rules restrict any use of the information to criminally investigate or prosecute any alcohol or drug abuse patient.[facility] HospitalIn the event this information is protected by the Federal Confidentiality of Alcohol and Drug Abuse Patient Records regulations: The Federal rules restrict any use of the information to criminally investigate or prosecute any alcohol or drug abuse patient.[facility] HospitalIn the event this information is protected by the Federal Confidentiality of Alcohol and Drug Abuse Patient Records regulations: The Federal rules restrict any use of the information to criminally investigate or prosecute any alcohol or drug abuse patient.[facility] HospitalIn the event this information is protected by the Federal Confidentiality of Alcohol and Drug Abuse Patient Records regulations: The Federal rules restrict any use of the information to criminally investigate or prosecute any alcohol or drug abuse patient.[facility] HospitalIn the event this information is protected by the Federal Confidentiality of Alcohol and Drug Abuse Patient Records regulations: The Federal rules restrict any use of the information to criminally investigate or prosecute any alcohol or drug abuse patient.[facility] HospitalIn the event this information is protected by the Federal Confidentiality of Alcohol and Drug Abuse Patient Records regulations: The Federal rules restrict any use of the information to criminally investigate or prosecute any alcohol or drug abuse patient.[facility] HospitalIn the event this information is protected by the Federal Confidentiality of Alcohol and Drug Abuse Patient Records regulations: The Federal rules restrict any use of the information to criminally investigate or prosecute any alcohol or drug abuse patient.[facility] HospitalIn the event this information is protected by the Federal Confidentiality of Alcohol and Drug Abuse Patient Records regulations: The Federal rules restrict any use of the information to criminally investigate or prosecute any alcohol or drug abuse patient.[facility] HospitalIn the event this information is protected by the Federal Confidentiality of Alcohol and Drug Abuse Patient Records regulations: The Federal rules restrict any use of the information to criminally investigate or prosecute any alcohol or drug abuse patient.[facility] HospitalIn the event this information is protected by the Federal Confidentiality of Alcohol and Drug Abuse Patient Records regulations: The Federal rules restrict any use of the information to criminally investigate or prosecute any alcohol or drug abuse patient.[facility] HospitalIn the event this information is protected by the Federal Confidentiality of Alcohol and Drug Abuse Patient Records regulations: The Federal rules restrict any use of the information to criminally investigate or prosecute any alcohol or drug abuse patient.[facility] HospitalIn the event this information is protected by the Federal Confidentiality of Alcohol and Drug Abuse Patient Records regulations: The Federal rules restrict any use of the information to criminally investigate or prosecute any alcohol or drug abuse patient.[facility] HospitalIn the event this information is protected by the Federal Confidentiality of Alcohol and Drug Abuse Patient Records regulations: The Federal rules restrict any use of the information to criminally investigate or prosecute any alcohol or drug abuse patient.[facility] HospitalIn the event this information is protected by the Federal Confidentiality of Alcohol and Drug Abuse Patient Records regulations: The Federal rules restrict any use of the information to criminally investigate or prosecute any alcohol or drug abuse patient.[facility] HospitalIn the event this information is protected by the Federal Confidentiality of Alcohol and Drug Abuse Patient Records regulations: The Federal rules restrict any use of the information to criminally investigate or prosecute any alcohol or drug abuse patient.[facility] HospitalIn the event this information is protected by the Federal Confidentiality of Alcohol and Drug Abuse Patient Records regulations: The Federal rules restrict any use of the information to criminally investigate or prosecute any alcohol or drug abuse patient.[facility] HospitalIn the event this information is protected by the Federal Confidentiality of Alcohol and Drug Abuse Patient Records regulations: The Federal rules restrict any use of the information to criminally investigate or prosecute any alcohol or drug abuse patient.[facility] HospitalIn the event this information is protected by the Federal Confidentiality of Alcohol and Drug Abuse Patient Records regulations: The Federal rules restrict any use of the information to criminally investigate or prosecute any alcohol or drug abuse patient.[facility] HospitalIn the event this information is protected by the Federal Confidentiality of Alcohol and Drug Abuse Patient Records regulations: The Federal rules restrict any use of the information to criminally investigate or prosecute any alcohol or drug abuse patient.[facility] HospitalIn the event this information is protected by the Federal Confidentiality of Alcohol and Drug Abuse Patient Records regulations: The Federal rules restrict any use of the information to criminally investigate or prosecute any alcohol or drug abuse patient.[facility] HospitalIn the event this information is protected by the Federal Confidentiality of Alcohol and Drug Abuse Patient Records regulations: The Federal rules restrict any use of the information to criminally investigate or prosecute any alcohol or drug abuse patient.[facility] HospitalIn the event this information is protected by the Federal Confidentiality of Alcohol and Drug Abuse Patient Records regulations: The Federal rules restrict any use of the information to criminally investigate or prosecute any alcohol or drug abuse patient.[facility] HospitalIn the event this information is protected by the Federal Confidentiality of Alcohol and Drug Abuse Patient Records regulations: The Federal rules restrict any use of the information to criminally investigate or prosecute any alcohol or drug abuse patient.[facility] HospitalIn the event this information is protected by the Federal Confidentiality of Alcohol and Drug Abuse Patient Records regulations: The Federal rules restrict any use of the information to criminally investigate or prosecute any alcohol or drug abuse patient.[facility] HospitalIn the event this information is protected by the Federal Confidentiality of Alcohol and Drug Abuse Patient Records regulations: The Federal rules restrict any use of the information to criminally investigate or prosecute any alcohol or drug abuse patient.[facility] HospitalIn the event this information is protected by the Federal Confidentiality of Alcohol and Drug Abuse Patient Records regulations: The Federal rules restrict any use of the information to criminally investigate or prosecute any alcohol or drug abuse patient.[facility] HospitalIn the event this information is protected by the Federal Confidentiality of Alcohol and Drug Abuse Patient Records regulations: The Federal rules restrict any use of the information to criminally investigate or prosecute any alcohol or drug abuse patient.[facility] HospitalIn the event this information is protected by the Federal Confidentiality of Alcohol and Drug Abuse Patient Records regulations: The Federal rules restrict any use of the information to criminally investigate or prosecute any alcohol or drug abuse patient.[facility] HospitalIn the event this information is protected by the Federal Confidentiality of Alcohol and Drug Abuse Patient Records regulations: The Federal rules restrict any use of the information to criminally investigate or prosecute any alcohol or drug abuse patient.[facility] HospitalIn the event this information is protected by the Federal Confidentiality of Alcohol and Drug Abuse Patient Records regulations: The Federal rules restrict any use of the information to criminally investigate or prosecute any alcohol or drug abuse patient.[facility] HospitalIn the event this information is protected by the Federal Confidentiality of Alcohol and Drug Abuse Patient Records regulations: The Federal rules restrict any use of the information to criminally investigate or prosecute any alcohol or drug abuse patient.[facility] HospitalIn the event this information is protected by the Federal Confidentiality of Alcohol and Drug Abuse Patient Records regulations: The Federal rules restrict any use of the information to criminally investigate or prosecute any alcohol or drug abuse patient.[facility] HospitalIn the event this information is protected by the Federal Confidentiality of Alcohol and Drug Abuse Patient Records regulations: The Federal rules restrict any use of the information to criminally investigate or prosecute any alcohol or drug abuse patient.[facility] HospitalIn the event this information is protected by the Federal Confidentiality of Alcohol and Drug Abuse Patient Records regulations: The Federal rules restrict any use of the information to criminally investigate or prosecute any alcohol or drug abuse patient.[facility] HospitalIn the event this information is protected by the Federal Confidentiality of Alcohol and Drug Abuse Patient Records regulations: The Federal rules restrict any use of the information to criminally investigate or prosecute any alcohol or drug abuse patient.[facility] HospitalIn the event this information is protected by the Federal Confidentiality of Alcohol and Drug Abuse Patient Records regulations: The Federal rules restrict any use of the information to criminally investigate or prosecute any alcohol or drug abuse patient.[facility] HospitalIn the event this information is protected by the Federal Confidentiality of Alcohol and Drug Abuse Patient Records regulations: The Federal rules restrict any use of the information to criminally investigate or prosecute any alcohol or drug abuse patient.[facility] HospitalIn the event this information is protected by the Federal Confidentiality of Alcohol and Drug Abuse Patient Records regulations: The Federal rules restrict any use of the information to criminally investigate or prosecute any alcohol or drug abuse patient.[facility] HospitalIn the event this information is protected by the Federal Confidentiality of Alcohol and Drug Abuse Patient Records regulations: The Federal rules restrict any use of the information to criminally investigate or prosecute any alcohol or drug abuse patient.[facility] HospitalIn the event this information is protected by the Federal Confidentiality of Alcohol and Drug Abuse Patient Records regulations: The Federal rules restrict any use of the information to criminally investigate or prosecute any alcohol or drug abuse patient.[facility] HospitalIn the event this information is protected by the Federal Confidentiality of Alcohol and Drug Abuse Patient Records regulations: The Federal rules restrict any use of the information to criminally investigate or prosecute any alcohol or drug abuse patient.[facility] HospitalIn the event this information is protected by the Federal Confidentiality of Alcohol and Drug Abuse Patient Records regulations: The Federal rules restrict any use of the information to criminally investigate or prosecute any alcohol or drug abuse patient.[facility] HospitalIn the event this information is protected by the Federal Confidentiality of Alcohol and Drug Abuse Patient Records regulations: The Federal rules restrict any use of the information to criminally investigate or prosecute any alcohol or drug abuse patient.[facility] HospitalIn the event this information is protected by the Federal Confidentiality of Alcohol and Drug Abuse Patient Records regulations: The Federal rules restrict any use of the information to criminally investigate or prosecute any alcohol or drug abuse patient.[facility] HospitalIn the event this information is protected by the Federal Confidentiality of Alcohol and Drug Abuse Patient Records regulations: The Federal rules restrict any use of the information to criminally investigate or prosecute any alcohol or drug abuse patient.[facility] HospitalIn the event this information is protected by the Federal Confidentiality of Alcohol and Drug Abuse Patient Records regulations: The Federal rules restrict any use of the information to criminally investigate or prosecute any alcohol or drug abuse patient.[facility] HospitalIn the event this information is protected by the Federal Confidentiality of Alcohol and Drug Abuse Patient Records regulations: The Federal rules restrict any use of the information to criminally investigate or prosecute any alcohol or drug abuse patient.[facility] HospitalIn the event this information is protected by the Federal Confidentiality of Alcohol and Drug Abuse Patient Records regulations: The Federal rules restrict any use of the information to criminally investigate or prosecute any alcohol or drug abuse patient.[facility] HospitalIn the event this information is protected by the Federal Confidentiality of Alcohol and Drug Abuse Patient Records regulations: The Federal rules restrict any use of the information to criminally investigate or prosecute any alcohol or drug abuse patient.[facility] HospitalIn the event this information is protected by the Federal Confidentiality of Alcohol and Drug Abuse Patient Records regulations: The Federal rules restrict any use of the information to criminally investigate or prosecute any alcohol or drug abuse patient.[facility] HospitalIn the event this information is protected by the Federal Confidentiality of Alcohol and Drug Abuse Patient Records regulations: The Federal rules restrict any use of the information to criminally investigate or prosecute any alcohol or drug abuse patient.[facility] HospitalIn the event this information is protected by the Federal Confidentiality of Alcohol and Drug Abuse Patient Records regulations: The Federal rules restrict any use of the information to criminally investigate or prosecute any alcohol or drug abuse patient.[facility] HospitalIn the event this information is protected by the Federal Confidentiality of Alcohol and Drug Abuse Patient Records regulations: The Federal rules restrict any use of the information to criminally investigate or prosecute any alcohol or drug abuse patient.[facility] HospitalIn the event this information is protected by the Federal Confidentiality of Alcohol and Drug Abuse Patient Records regulations: The Federal rules restrict any use of the information to criminally investigate or prosecute any alcohol or drug abuse patient.[facility] HospitalIn the event this information is protected by the Federal Confidentiality of Alcohol and Drug Abuse Patient Records regulations: The Federal rules restrict any use of the information to criminally investigate or prosecute any alcohol or drug abuse patient.[facility] HospitalIn the event this information is protected by the Federal Confidentiality of Alcohol and Drug Abuse Patient Records regulations: The Federal rules restrict any use of the information to criminally investigate or prosecute any alcohol or drug abuse patient.[facility] Reason for Visit (unrecogniz ed section and content) Specialty Diagnoses / Procedures Referred By Linn carrillo Referred To Contact [facility] Diagnoses Abnormality of gait due to impairment of balance Procedures CONSULT TO PHYSICAL THERAPY PHYSICAL THERAPY EVALUATION HIGH COMPLEX 45 MINS Tamie Kaur MD [address] [place] [address] [facility] [address] [address] Referral ID Status Reason Start Date Expiration Date Visits Requested Visits Authorized [id number] Authorized PCP Requested Referral Auto-Generate d Referral [...] 6 mo Reason Comments Hospital Follow Up [facility] discharged Reason Comments Results Reason Comments Consult altered mental statu s Specialty Diagnoses / Procedures Referred By Linn carrillo Referred To Contact Neurology Diagnoses Altered mental status, unspecified altered mental status type Procedures CONSULT TO NEUROLOGY OFFICE/OUTPATIENT [facility] MDM 60-74 MINUTES Abdulaziz Caldera MD [address] [place] [address] Referral ID Status Reason Start Date Expiration Date V isits Requested Visits Authorized [id number] Closed PCP Requested Referral 01/01/2022 01/01/2023 1 [...] Nursing Plan of Care Update Reason Comments [facility] PT POC Reason Comments OT plan of care Reason Onset Date Comments Refill Request 07/25/2022 Reason Comments Home Health-Nursing Update Reason Onset Date Comments Anticoagulation 07/31/2022 Specialty Diagnoses / Procedures Referred By Linn carrillo Referred To Contact Ent - Otolaryngology Diagnoses Chronic frontal sinusitis Procedures CONSULT TO ENT OFFICE/OUTPATIENT NEW HIGH MDM 60-74 MINUTES Abdulaziz Caldera MD [address] [place] [address] Referral ID Status Reason Start Date Expiration Date V isits Requested Visits Authorized [id number] Closed PCP Requested Referral 07/12/2022 07/12/2023 1 [...] Care Teams (unrecognized sec tion and content) 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 Specialty Start Date End Date Abdulaziz Caldera MD [address] [place] [address] PCP - General Family Practice 11/23/20 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 Specialty Start Date End Date Abdulaziz Caledra MD [address] [place] [place] [address] PCP - General Family Practice 11/23/20 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 Specialty Start Date End Date Abdulaziz Caldera MD [address] [place] [place] [address] PCP - General Family Practice 11/23/20 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 Specialty Start Date End Date Abdulaziz Caldera MD [address] [place] [address] PCP - General Family Practice 11/23/20 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 Specialty Start Date End Date Abdulaziz Caldera MD [facility] [place] [place] [address] PCP - General Family Practice 11/23/20 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 Specialty Start Date End Date Abdulaziz Caldera MD [address] [place] [place] [address] PCP - General Family Practice 11/23/20 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 Specialty Start Date End Date Abdulaziz Caldera MD [address] [place] [address] PCP - General Family Practice 11/23/20 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 Specialty Start Date End Date Abdulaziz Caldera MD [address] [place] [address] PCP - General Family Practice 11/23/20 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 Specialty Start Date End Date Abdulaziz Caldera MD [address] [place] [address] PCP - General Family Practice 11/23/20 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 Specialty Start Date End Date Abdulaziz Caldera MD [address] [place] [place] [address] PCP - General Family Practice 11/23/20 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 Specialty Start Date End Date Abdulaziz Caldera MD [address] [place] [address] PCP - General Family Practice 11/23/20 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 Specialty Start Date End Date Abdulaziz Caldera MD [address] [place] [address] PCP - General Family Practice 11/23/20 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 Specialty Start Date End Date Abdulaziz Caldera MD [address] [place] [address] PCP - General Family Practice 11/23/20 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 Specialty Start Date End Date Abdulaziz Caldera MD [address] [place] [address] PCP - General Family Practice 11/23/20 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 Specialty Start Date End Date Abdulaziz Caldera MD [address] [place] [address] PCP - General Family Practice 11/23/20 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 Specialty Start Date End Date Abdulaziz Caldera MD [address] [place] [address] PCP - General Family Practice 11/23/20 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 Specialty Start Date End Date Abdulaziz Caldera MD [address] [place] [address] PCP - General Family Practice 11/23/20 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 Specialty Start Date End Date Abdulaziz Caldera MD [address] [place] [address] PCP - General Family Practice 11/23/20 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 Specialty Start Date End Date Abdulaziz Caldera MD [address] [place] [address] PCP - General Family Practice 11/23/20 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 Specialty Start Date End Date Abdulaziz Caldera MD [address] [place] [address] PCP - General Family Practice 11/23/20 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 Specialty Start Date End Date Abdulaziz Caldera MD [address] [place] [address] PCP - General Family Practice 11/23/20 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 Specialty Start Date End Date Abdulaziz Caldera MD [address] [place] [address] PCP - General Family Medicine 11/23/20 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 Specialty Start Date End Date Abdulaziz Caldera MD [address] [place] [address] PCP - General Family Medicine 11/23/20 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 Specialty Start Date End Date Abdulaziz Caldera MD [address] [place] [address] PCP - General Family Medicine 11/23/20 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 Specialty Start Date End Date Abdulaziz Caldera MD [address] [place] [address] PCP - General Family Medicine 11/23/20 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 Specialty Start Date End Date Abdulaziz Caldera MD [address] [place] [address] PCP - General Family Medicine 11/23/20 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 Specialty Start Date End Date Abdulaziz Caldera MD [address] [place] [address] PCP - General Family Medicine 11/23/20 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 Specialty Start Date End Date Abdulaziz Caldera MD [address] [place] [address] PCP - General Family Medicine 11/23/20 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 Specialty Start Date End Date Abdluaziz Caldera MD [address] [place] [address] PCP - General Family Medicine 11/23/20 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 Specialty Start Date End Date Abdulaziz Caldera MD [address] [place] [address] PCP - General Family Medicine 11/23/20 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 Specialty Start Date End Date Abdulaziz Caldera MD [address] [place] [address] PCP - General Family Medicine 11/23/20 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 Specialty Start Date End Date Abdulaziz Caldera MD [address] [place] [address] PCP - General Family Medicine 11/23/20 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 Specialty Start Date End Date Abdulaziz Caldera MD [address] [place] [address] PCP - General Family Medicine 11/23/20 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 Specialty Start Date End Date Abdulaziz Caldera MD [address] [place] [address] PCP - General Family Medicine 11/23/20 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 Specialty Start Date End Date Abdulaziz Caldera MD [address] [place] [address] PCP - General Family Medicine 11/23/20 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 Specialty Start Date End Date Abdulaziz Caldera MD [address] [place] [address] PCP - General Family Medicine 11/23/20 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 Specialty Start Date End Date Abdulaziz Caldera MD [address] [place] [address] PCP - General Family Medicine 11/23/20 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 Specialty Start Date End Date Abdulaziz Caldera MD [address] [place] [address] PCP - General Family Medicine 11/23/20 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 Specialty Start Date End Date Abdulaziz Caldera MD [address] [place] [address] PCP - General Family Medicine 11/23/20 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 Specialty Start Date End Date Abdulaziz Caldera MD [address] [place] [address] PCP - General Family Medicine 11/23/20 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 Specialty Start Date End Date Abdulaziz Caldera MD [address] [place] [address] PCP - General Family Medicine 11/23/20 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 Specialty Start Date End Date Abdulaziz Caldera MD [address] [place] [address] PCP - General Family Medicine 11/23/20 (unrecognized sect ion and content) No Status Records FoundNo Status Records FoundNo Status Records FoundNo Status Records Found INFORMATION SOURCE (unrecogn ized section and content) DATE CREATED AUTHOR AUTHOR'S ORGANIZ ATION 02/04/2022 [facility] DATE CREATED AUTHOR AUTHOR'S ORGANIZ ATION 04/19/2022 [facility] ([place]) DATE CREATED AUTHOR AUTHOR'S DESTINY ATION 05/30/2023 [facility] FOR RECORDS PERTAINING TO PATIENTS WHO [...] BE BASED ON THE PRIMARY CLINICAL RECORDS. [facility]. provides no warranty or guarantee of the accuracy or completeness of information in this document.
[2023-07-22 09:50] LABS: Prothrombin Time Fingerstick 22.4 SEC (11.7-14.9)
== END ==
LOC: OLS.ACH 05:00
PROVIDERS: PCP Family Medicine; Visit Provider Internal Medicine
DX: I48.0 Paroxysmal atrial fibrillation (principal)
CPT/HCPCS: 36416; 85610

== ENCOUNTER → 2023-07-29 | Outpatient (REF) | payer MEDICARE, OTHER, SELFPAY ==
--- OUTSIDE RECORDS SUMMARY | 2023-07-29 03:54 | XMS RPT_ITS | CCD ---
Author Name Unknown Address [address] [place] [address] Organization [facility] Care Team Providers Care Fire Systems Inspector Name Role Phone Abdulaziz Caldera MD Primary Care Provider PHYSICIAN, NOT RECORDED Primary Care Physician U Abdulaziz Bajwa MD Primary Care Provider Abdulaziz Caldera MD Primary Care Provider IJ COLBERT., DR. VELÁZQUEZ Attending Unavaila alexy PHYSICIAN, [...] Unavailab le OMISÉS, TAMIE Y Referring Unavailable O'CHAVOJUSTINA DILLARD Attending [...] Primary Care Unavailab ABDULAZIZ Zuniga Attending Unavailab BADULAZIZ Zuniga Primary Care Unavailab JUSTINA Jones Referring [...] pantoprazole; Translations: [PANTOPRAZOLE] Drug Allergy 03-12-2020 Diarrhea [facility] Medications Current Medications Medication Drug Class(es) [...] Coronary atherosclerosis; Translations: [Atherosclerotic heart disease of nome coronary artery without angina pectoris] Chronic Diabetes [...] sources) Long-term current use of anticoagulant; Translations: [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] Onset: 05-07-2018 11-06-2018 Episodic Other aftercare (1 source) 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; Translations: [Chronic anticoagulation] Onset: 11-06-2018 Episodic Other aftercare (1 source) [facility] (current) use of insulin; Translations: [Type 2 [...] 185.4 cm Tamie Kaur MD Work Phone: [facility] 09-07-2022 11:01-0500 Body weight 113.4 kg Tamie Kaur MD Work Phone: [facility] 09-07-2022 11:01-0500 Diastolic blood pressure 57 mm[Hg] Tamie Kaur MD Work Phone: [facility] 09-07-2022 11:01-0500 Heart rate 64 /min Tamie Kaur MD Work Phone: [facility] 09-07-2022 11:01-0500 Respiratory rate 16 /min Tamie Kaur MD Work Phone: [facility] 09-07-2022 11:01-0500 SaO2% (BldA) [Mass fraction] 99 % Tamie Kaur MD Work Phone: [facility] 09-07-2022 11:01-0500 Systolic blood pressure 124 mm[Hg] Tamie Kaur MD Work Phone: [facility] 08-09-2022 16:35-0500 Body weight 113.4 kg Abdulaziz Caldera MD Work Phone: [facility] 08-09-2022 16:35-0500 Diastolic blood pressure 62 mm[Hg] Abdulaziz Caldera MD Work Phone: [facility] 08-09-2022 16:35-0500 Heart rate 64 /min Abdulaziz Caldera MD Work Phone: [facility] 08-09-2022 16:35-0500 Respiratory rate 16 /min Abdulaziz Caldera MD Work Phone: [facility] 08-09-2022 16:35-0500 SaO2% (BldA) [Mass fraction] 96 % Abdulaziz Caldera MD Work Phone: [facility] 08-09-2022 16:35-0500 Systolic blood pressure 112 mm[Hg] Abdulaziz Caldera MD Work Phone: [facility] 04-17-2022 11:23-0400 Body height 185.4 cm Tamie Kaur MD Work Phone: [facility] 04-17-2022 11:23-0400 Body weight 114.31 kg Tamie Kaur MD Work Phone: [facility] 04-17-2022 11:23-0400 Diastolic blood pressure 71 mm[Hg] Tamie Kaur MD Work Phone: [facility] 04-17-2022 11:23-0400 Heart rate 72 /min Tamie Kaur MD Work Phone: [facility] 04-17-2022 11:23-0400 Respiratory rate 18 /min Tamie Kaur MD Work Phone: [facility] 04-17-2022 11:23-0400 SaO2% (BldA) [Mass fraction] 98 % Tamie Kaur MD Work Phone: [facility] 04-17-2022 11:23-0400 Systolic blood pressure 116 mm[Hg] Tamie Kaur MD Work Phone: [facility] 04-16-2022 13:09-0400 Body height 185.4 cm Abdulaziz Caldera MD Work Phone: [facility] 04-16-2022 13:09-0400 Body weight 114.31 kg Abdulaziz Caldera MD Work Phone: [facility] 04-16-2022 13:09-0400 Diastolic blood pressure 72 mm[Hg] Abdulaziz Caldera MD Work Phone: [facility] 04-16-2022 13:09-0400 Heart rate 70 /min Abdulaziz Caldera MD Work Phone: [facility] 04-16-2022 13:09-0400 Respiratory rate 16 /min Abdulaziz Caldera MD Work Phone: [facility] 04-16-2022 13:09-0400 SaO2% (BldA) [Mass fraction] 98 % Abdulaziz Caldera MD Work Phone: [facility] 04-16-2022 13:09-0400 Systolic blood pressure 132 mm[Hg] Abdulaziz Caldera MD Work Phone: [facility] 04-06-2022 09:36-0400 Body weight 114.31 kg Roselia Madrigal PRINTED CIRCUIT BOARD PANELS PLATER.ANATOMIC PATHOLOGIST Work Phone: [facility] 04-06-2022 09:36-0400 Diastolic blood pressure 62 mm[Hg] Roselia Podlogar PRINTED CIRCUIT BOARD PANELS PLATER.ANATOMIC PATHOLOGIST Work Phone: [facility] 04-06-2022 09:36-0400 Heart rate 62 /min Roselia Podlogar PRINTED CIRCUIT BOARD PANELS PLATER.ANATOMIC PATHOLOGIST Work Phone: [facility] 04-06-2022 09:36-0400 Respiratory rate 16 /min Roselia Podlogar PRINTED CIRCUIT BOARD PANELS PLATER.ANATOMIC PATHOLOGIST Work Phone: [facility] 04-06-2022 09:36-0400 SaO2% (BldA) [Mass fraction] 97 % Roselia Podlogar PRINTED CIRCUIT BOARD PANELS PLATER.ANATOMIC PATHOLOGIST Work Phone: [facility] 04-06-2022 09:36-0400 Systolic blood pressure 112 mm[Hg] Roselia Podlogar PRINTED CIRCUIT BOARD PANELS PLATER.ANATOMIC PATHOLOGIST Work Phone: [facility] 03-07-2022 11:12-0400 Body weight 114.76 kg Abdulaziz Caldera MD Work Phone: [facility] 03-07-2022 11:12-0400 Diastolic blood pressure 70 mm[Hg] Abdulaziz Caldera MD Work Phone: [facility] 03-07-2022 11:12-0400 Heart rate 64 /min Abdulaziz Caldera MD Work Phone: [facility] 03-07-2022 11:12-0400 Respiratory rate 16 /min Abdulaziz Caldera MD Work Phone: [facility] 03-07-2022 11:12-0400 Systolic blood pressure 118 mm[Hg] Abdulaziz Caldera MD Work Phone: [facility] 03-05-2022 12:00-0400 Diastolic blood pressure 60 mm[Hg] Rosa Elena Lemon PT [facility] 03-05-2022 12:00-0400 Systolic blood pressure 112 mm[Hg] Rosa Elena Lemon PT [facility] 01-12-2022 08:00-0400 Diastolic blood pressure 78 mm[Hg] Rosa Elena Lemon PT [facility] 01-12-2022 08:00-0400 Systolic blood pressure 130 mm[Hg] Rosa Elena Lemon PT [facility] 01-05-2022 09:56-0400 Body height 185.4 cm Tamie Kaur MD Work Phone: [facility] 01-05-2022 09:56-0400 Body weight 111.58 kg Tamie Kaur MD Work Phone: [facility] 01-05-2022 09:56-0400 Diastolic blood pressure 62 mm[Hg] Tamie Kaur MD Work Phone: [facility] 01-05-2022 09:56-0400 Heart rate 58 /min Tamie Kaur MD Work Phone: [facility] 01-05-2022 09:56-0400 Respiratory rate 16 /min Tamie Kaur MD Work Phone: [facility] 01-05-2022 09:56-0400 SaO2% (BldA) [Mass fraction] 97 % Tamie Kaur MD Work Phone: [facility] 01-05-2022 09:56-0400 Systolic blood pressure 117 mm[Hg] Tamie Kaur MD Work Phone: [facility] 01-01-2022 10:12-0400 Body temperature 97.39 [degF] Abdulaziz Caldera MD Work Phone: [facility] 01-01-2022 10:12-0400 Body weight 111.77 kg Abdulaziz Caldera MD Work Phone: [facility] 01-01-2022 10:12-0400 Diastolic blood pressure 64 mm[Hg] Abdulaziz Caldera MD Work Phone: [facility] 01-01-2022 10:12-0400 Heart rate 47 /min Abdulaziz Caldera MD Work Phone: [facility] 01-01-2022 10:12-0400 Respiratory rate 18 /min Abdulaziz Caldera MD Work Phone: [facility] 01-01-2022 10:12-0400 SaO2% (BldA) [Mass fraction] 98 % Abdulaziz Caldera MD Work Phone: [facility] 01-01-2022 10:12-0400 Systolic blood pressure 112 mm[Hg] Abdulaziz Caldera MD Work Phone: [facility] 01-01-2022 08:55-0400 Body weight 112.49 kg Justina Leonie PRINTED CIRCUIT BOARD PANELS PLATER.ANATOMIC PATHOLOGIST Work Phone: [facility] 01-01-2022 08:55-0400 Diastolic blood pressure 74 mm[Hg] Justina Leonie PRINTED CIRCUIT BOARD PANELS PLATER.ANATOMIC PATHOLOGIST Work Phone: [facility] 01-01-2022 08:55-0400 Heart rate 60 /min Justina Leonie PRINTED CIRCUIT BOARD PANELS PLATER.ANATOMIC PATHOLOGIST Work Phone: [facility] 01-01-2022 08:55-0400 Respiratory rate 18 /min Justina Leonie PRINTED CIRCUIT BOARD PANELS PLATER.ANATOMIC PATHOLOGIST Work Phone: [facility] 01-01-2022 08:55-0400 Systolic blood pressure 147 mm[Hg] Justina Leonie PRINTED CIRCUIT BOARD PANELS PLATER.ANATOMIC PATHOLOGIST Work Phone: [facility] 12-27-2021 21:22-0400 Diastolic blood pressure 71 mm[Hg] DR MELANIA WORKMAN MD [facility] 12-27-2021 21:22-0400 Heart rate 73 /min DR MELANIA WORKMAN MD [facility] 12-27-2021 21:22-0400 Respiratory rate 24 /min DR MELANIA WORKMAN MD [facility] 12-27-2021 21:22-0400 Systolic blood pressure 121 mm[Hg] DR MELANIA WORKMAN MD [facility] 12-27-2021 20:06-0400 Diastolic blood pressure 59 mm[Hg] DR MELANIA WORKMAN MD [facility] 12-27-2021 20:06-0400 Heart rate 80 /min DR MELANIA WORKMAN MD [facility] 12-27-2021 20:06-0400 Respiratory rate 26 /min DR MELANIA WORKMAN MD [facility] 12-27-2021 20:06-0400 Systolic blood pressure 112 mm[Hg] DR MELANIA WORKMAN MD [facility] 12-27-2021 19:19-0400 Body temperature 98.6 [degF] DR MELANIA WORKMAN MD [facility] 12-27-2021 19:19-0400 Diastolic blood pressure 76 mm[Hg] DR MELANIA WORKMAN MD [facility] 12-27-2021 19:19-0400 Heart rate 82 /min DR MELANIA WORKMAN MD [facility] 12-27-2021 19:19-0400 Respiratory rate 26 /min DR MELANIA WORKMAN MD [facility] 12-27-2021 19:19-0400 Systolic blood pressure 138 mm[Hg] DR MELANIA WORKMAN MD [facility] 12-27-2021 17:36-0400 Body temperature 102.56 [degF] DR MELANIA WORKMAN MD [facility] 12-27-2021 17:36-0400 Body weight [address] MELANIA WORKMAN MD [facility] 12-27-2021 17:36-0400 Heart rate 104 /min DR MELANIA WORKMAN MD [facility] 12-14-2021 15:10-0400 Body temperature 98.2 [degF] Abdulaziz Caldera MD Work Phone: [facility] 12-14-2021 15:10-0400 Body weight 110.77 kg Abdulaziz Caldera MD Work Phone: [facility] 12-14-2021 15:10-0400 Diastolic blood pressure 70 mm[Hg] Abdulaziz Caldera MD Work Phone: [facility] 12-14-2021 15:10-0400 Heart rate 54 /min Abdulaziz Caldera MD Work Phone: [facility] 12-14-2021 15:10-0400 Respiratory rate 16 /min Abdulaziz Caldera MD Work Phone: [facility] 12-14-2021 15:10-0400 SaO2% (BldA) [Mass fraction] 96 % Abdulaziz Caldera MD Work Phone: [facility] 12-14-2021 15:10-0400 Systolic blood pressure 130 mm[Hg] Abdulaziz Caldera MD Work Phone: [facility] 12-08-2021 16:23-0400 Diastolic blood pressure 64 mm[Hg] Abdulaziz Caldera MD Work Phone: [facility] 12-08-2021 16:23-0400 Heart rate 85 /min Abdulaziz Caldera MD Work Phone: [facility] 12-08-2021 16:23-0400 Systolic blood pressure 110 mm[Hg] Abdulaziz Caldera MD Work Phone: [facility] 10-23-2021 13:05-0400 Body temperature 97.3 [degF] Marcella Xavier PA-C Work Phone: [facility] 10-23-2021 13:05-0400 Body weight 114.58 kg Marcella Xavier PA-C Work Phone: [facility] 10-23-2021 13:05-0400 Diastolic blood pressure 56 mm[Hg] Marcella Xavier PA-C Work Phone: [facility] 10-23-2021 13:05-0400 Heart rate 85 /min Marcella [place] PA-C Work Phone: [facility] 10-23-2021 13:05-0400 SaO2% (BldA) [Mass fraction] 98 % Marcella [place] PA-C Work Phone: [facility] 10-23-2021 13:05-0400 Systolic blood pressure 132 mm[Hg] Marcella [place] PA-C Work Phone: [facility] 10-10-2021 10:07-0400 Diastolic blood pressure 68 mm[Hg] Richard Jones MD Work Phone: [facility] 10-10-2021 10:07-0400 Heart rate 69 /min Richard Jones MD Work Phone: [facility] 10-10-2021 10:07-0400 Respiratory rate 16 /min Richard Jones MD Work Phone: [facility] 10-10-2021 10:07-0400 SaO2% (BldA) [Mass fraction] 98 % Richard Jones MD Work Phone: [facility] 10-10-2021 10:07-0400 Systolic blood pressure 150 mm[Hg] Richard Jones MD Work Phone: [facility] 10-10-2021 08:01-0400 Body temperature 97 [degF] Richard Jones MD Work Phone: [facility] Encounters Encounter Date Encounter Type Care Provider Facility Start: 01-28-2023 Telephone encounter Luis Caldera MD Work Phone: [facility] [place] Procedures Date Procedure Procedure Detail Performing Clinician Start: 04-06-2022 INFLUENZA SEASONAL QUADRIVALENT HIGH DOSE AGE 65+ Roselia Podlogar PRINTED CIRCUIT BOARD PANELS PLATER.ANATOMIC PATHOLOGIST Work Phone: Start: 04-06-2022 PFIZER-BIONTECH COVI D-19 BIVALENT BOOSTER VACCINE, AGE 12+ YR Roselia Podlogar PRINTED CIRCUIT BOARD PANELS PLATER.ANATOMIC PATHOLOGIST Work Phone: Start: 04-06-2022 Adult depression scr eening assessment Roselia Podlogar PRINTED CIRCUIT BOARD PANELS PLATER.ANATOMIC PATHOLOGIST Work Phone: Start: 03-07-2022 PROTHROMBIN TIME/PT Chr mine Caldera MD Work Phone: Start: 03-07-2022 Adult depression scr eening assessment Abdulaziz Caldera MD Work Phone: Start: 01-09-2022 Echo tthrc r-t 2d w/wom-mode compl spec&colr d Justina E Leonie PRINTED CIRCUIT BOARD PANELS PLATER.ANATOMIC PATHOLOGIST Work Phone: Start: 01-01-2022 Urnls dip stick/tabl [...] Activity Detail Author Start: 10-11-2031 Colonoscopy COLONOSCOPY [facility] Start: 10-11-2031 COLORECTAL CANCER SCREENING COLORECTAL CANCER SCREENING [facility] Start: 10-10-2024 Colonoscopy COLONOSCOPY [facility] Start: 10-10-2024 COLORECTAL CANCER SCREENING COLORECTAL CANCER SCREENING [facility] Start: 01-05-2024 ANNUAL PCP TEAM CHRONIC DISEASE VISIT ANNUAL PCP TEAM CHRONIC DISEASE VISIT [facility] Start: 01-05-2024 BP CONTROLLED (<130/80) BP CONTROLLED (<130/80) [facility] Start: 12-04-2023 BP CONTROLLED (<130/80) BP CONTROLLED (<130/80) [facility] Start: 11-20-2023 ANNUAL PCP TEAM CHRONIC DISEASE VISIT ANNUAL PCP TEAM CHRONIC DISEASE VISIT [facility] Start: 11-20-2023 BP CONTROLLED (<130/80) BP CONTROLLED (<130/80) [facility] Start: 09-07-2023 BP CONTROLLED (<130/80) BP CONTROLLED (<130/80) [facility] Start: 08-13-2023 HEMOGLOBIN/HEMATOCRIT HEMOGLOBIN/HEMATOCRIT [facility] Start: 08-13-2023 SERUM CREATININE SERUM CREATININE [facility] Start: 08-09-2023 ANNUAL PCP TEAM CHRONIC DISEASE VISIT ANNUAL PCP TEAM CHRONIC DISEASE VISIT [facility] Start: 08-09-2023 BP CONTROLLED (<130/80) BP CONTROLLED (<130/80) [facility] Start: 07-12-2023 ANNUAL PCP TEAM CHRONIC DISEASE VISIT ANNUAL PCP TEAM CHRONIC DISEASE VISIT [facility] Start: 07-12-2023 BP CONTROLLED (<130/80) BP CONTROLLED (<130/80) [facility] Start: 04-17-2023 BP CONTROLLED (<130/80) BP CONTROLLED (<130/80) [facility] Start: 04-16-2023 ANNUAL PCP TEAM CHRONIC DISEASE VISIT ANNUAL PCP TEAM CHRONIC DISEASE VISIT [facility] Start: 04-06-2023 Adult depression screening assessment DEPRESSION SCREENING [facility] Start: 04-06-2023 ANNUAL PCP TEAM CHRONIC DISEASE VISIT ANNUAL PCP TEAM CHRONIC DISEASE VISIT [facility] Start: 04-06-2023 BP CONTROLLED (<130/80) BP CONTROLLED (<130/80) [facility] Start: 03-30-2023 3 comp foot exam completed DIABETIC FOOT EXAM [facility] Start: 03-15-2023 Influenza vaccination INFLUENZA (#1) [facility] Start: 03-07-2023 Adult depression screening assessment DEPRESSION SCREENING [facility] Start: 03-07-2023 ANNUAL PCP TEAM CHRONIC DISEASE VISIT ANNUAL PCP TEAM CHRONIC DISEASE VISIT [facility] Start: 03-07-2023 BP CONTROLLED (<130/80) BP CONTROLLED (<130/80) [facility] Start: 03-07-2023 SERUM CREATININE SERUM CREATININE [facility] Start: 03-05-2023 BP CONTROLLED (<130/80) BP CONTROLLED (<130/80) [facility] Start: 03-02-2023 Hepatitis B screening URINE ALBUMIN:CREATININE RATIO [facility] Start: 02-10-2023 Hemoglobin A1c/Hemoglobin.total in Blood HBA1C [facility] Start: 01-05-2023 BP CONTROLLED (<130/80) BP CONTROLLED (<130/80) [facility] Start: 01-01-2023 ANNUAL PCP TEAM CHRONIC DISEASE VISIT ANNUAL PCP TEAM CHRONIC DISEASE VISIT [facility] Start: 01-01-2023 BP CONTROLLED (<130/80) BP CONTROLLED (<130/80) [facility] Start: 01-01-2023 Hepatitis B surface antibody level LDL CHOLESTEROL [facility] Start: 01-01-2023 SERUM CREATININE SERUM CREATININE [facility] Start: 12-14-2022 ANNUAL PCP TEAM CHRONIC DISEASE VISIT ANNUAL PCP TEAM CHRONIC DISEASE VISIT [facility] Start: 12-08-2022 ANNUAL PCP TEAM CHRONIC DISEASE VISIT ANNUAL PCP TEAM CHRONIC DISEASE VISIT [facility] Start: 12-08-2022 BP CONTROLLED (<130/80) BP CONTROLLED (<130/80) [facility] Start: 09-06-2022 ANNUAL PCP TEAM CHRONIC DISEASE VISIT ANNUAL PCP TEAM CHRONIC DISEASE VISIT [facility] Start: 09-02-2022 Hemoglobin A1c/Hemoglobin.total in Blood HBA1C [facility] Start: 08-30-2022 SERUM CREATININE SERUM CREATININE [facility] Start: 08-09-2022 End: 10-09-2022 CBC W Auto Differential panel - Blood CBC + DIFF Lab Routine Type 2 diabetes mellitus with diabetic neuropathy, with long-term current use of insulin (HCC) Expected: 08/09/2022, Expires: 10/09/2022 [facility] Work Phone: Immunizations Immunization Date Immunization Notes Care Provider Fa cili 04-06-2022 COVID-19 booster vaccine, age 12+ yr, bivalent (PFIZER-BIONTECH) Roselia Podlogdavid PRINTED CIRCUIT BOARD PANELS PLATER.ANATOMIC PATHOLOGIST Work Phone: [facility] 04-06-2022 influenza, high-dose , quadrivalent vaccine (FLUZONE HIGH DOSE QUADRIVALENT) Roselia Raglandlogdavid PRINTED CIRCUIT BOARD PANELS PLATER.ANATOMIC PATHOLOGIST Work Phone: [facility] 06-14-2021 influenza, high-dose , quadrivalent vaccine (FLUZONE HIGH DOSE QUADRIVALENT) Abdulaziz Caldera MD Work Phone: [facility] Work Phone: 02-24-2021 zoster vaccine recombinant Abdulaziz Caldera MD Work Phone: [facility] 09-30-2020 COVID-19 vaccine, ag e 12+ yr (PFIZER-BIONTECH - PURPLE TOP) Abdulaziz Caldera MD Work Phone: [facility] 09-09-2020 COVID-19 vaccine, ag e 12+ yr (PFIZER-BIONTECH - PURPLE TOP) Abdulaziz Caldera MD Work Phone: [facility] 04-16-2020 influenza, high-dose , quadrivalent vaccine (FLUZONE HIGH DOSE QUADRIVALENT) Abdulaziz Caldera MD Work Phone: [facility] 03-14-2020 zoster vaccine recombinant Abdulaziz Caldera MD Work Phone: [facility] Work Phone: 04-02-2019 influenza, high dose seasonal, preservative-free Abdulaziz Caldera MD Work Phone: [facility] Work Phone: 04-15-2018 influenza, high dose seasonal, preservative-free Abdulaziz Caldera MD Work Phone: [facility] 06-13-2017 influenza, high dose seasonal, preservative-free Abdulaziz Caldera MD Work Phone: [facility] 06-20-2016 influenza, high dose seasonal, preservative-free Abdulaziz Caldera MD Work Phone: [facility] 11-24-2015 pneumococcal polysaccharide vaccine, 23 valent Abdulaziz Caldera MD Work Phone: [facility] 05-16-2015 influenza, high dose seasonal, preservative-free Abdulaziz Caldera MD Work Phone: [facility] 10-27-2014 pneumococcal conjuga te vaccine, 13 valent Abdulaziz Caldera MD Work Phone: [facility] 10-27-2014 zoster vaccine, live Socrates Caldera MD Work Phone: [facility] 06-11-2011 influenza virus vaccine, unspecified formulation Abdulaziz Caldera MD Work Phone: [facility] 12-25-2010 tetanus toxoid, redu veronika diphtheria toxoid, and acellular pertussis vaccine, adsorbed Abdulaziz Caldera MD Work Phone: [facility] 04-25-2009 pneumococcal polysaccharide vaccine, 23 valent Abdulaziz Caldera MD Work Phone: [facility] 03-21-2000 diphtheria and tetan us toxoids, adsorbed for pediatric use Abdulaziz Caldera MD Work Phone: [facility] Work Phone: 02-11-1961 poliovirus vaccine, inactivated Abdulaziz Caldera MD Work Phone: [facility] Work Phone: 03-25-1959 poliovirus vaccine, inactivated Abdulaziz Caldera MD Work Phone: [facility] Work Phone: 10-16-1956 poliovirus vaccine, inactivated Abdulaziz Caldera MD Work Phone: [facility] Work Phone: 01-12-1956 poliovirus vaccine, inactivated Abdulaziz Caldera MD Work Phone: [facility] Work Phone: 12-03-1955 poliovirus vaccine, inactivated Abdulaziz Caldera MD Work Phone: [facility] Work Phone: Payers Date Payer Category Payer Unknown HOSPITAL/MEDICAL GENERIC MEDICAL GENERIC [id number] 2012-Present [phone] [address] [place] [address] Indemnity [id number] 2012 Unknown HOSPITAL/MEDICAL GENERIC MEDICAL GENERIC [id number] 2012-Present [phone] [address] [place] [address] Indemnity [id number] 2012 Unknown [id number] 2012 Medicare MEDICARE MEDICAR E A AND B [id number] 2012-Present [phone] [place] [address] Medicare [id number] 2012 Medicare MEDICARE MEDICAR E A AND B [id number] 2012-Present [phone] [place] [address] Medicare [id number] 2012 Medicare [id number] 1945 Unknown [id number] Social History Date Type Detail Facility Start: 11-23-2020 End: 04-06-2022 Tobacco smoking status NHIS Never smoked tobacco [facility] Start: 09-06-2021 End: 12-03-2022 Alcohol intake Current non-drinker of alcohol (finding) [facility] Start: 1945 Sex Assigned At Not on file [facility] Start: 08-07-2021 End: 04-17-2022 Exposure to SARS-CoV-2 (event) Not sure [facility] Tobacco smoking status No Smokin g Status Entered [facility] Sex Assigned At Male [facility] Start: 01-02-2022 End: 01-12-2022 Exposure to SARS-CoV-2 (event) Unable to assess [facility] Work Phone: Start: 11-23-2020 End: 04-06-2022 Tobacco use and exposure Smokeless tobacco non-user [facility] Work Phone: Start: 11-19-2022 End: 12-03-2022 History of Social function [facility] Work Phone: Start: 11-19-2022 End: 12-03-2022 Tobacco use panel [facility] Work Phone: Adult Depression Screening Assessment 2 [facility] Work Phone: Medical Equipment Procedure Code [...] Note Patient Outreach (EVELYN ROGERS) RICHARD ROY ([id number]) 1945 M Date Time Provider Department 05/28/23 GUDELIA HUITRON During your visit today, we recorded the following information about you: Gudelia Huitron MA 05/28/2023 12:44 PM Signed POPULATION HEALTH NAVIGATION OUTREACH Action/FYI NO ANSWER [employer] MESSAGE SENT ANNUAL MEDICARE WELLNESS Advance Directive Discussion Never done HbA1C due on 02/10/2023 Influenza Vaccine(1) due on 03/15/2023 Patient Identified by Name and : NO Outreach Outcome/Action Unable to reach patient: Phone number not valid / voicemail full [employer] message sent Did you use a PCP [...] time a week. - blood sugar diagnostic ([employer] ULTRA TEST) test strip Test blood sugar(s) [...] due to im (more content not included)... [facility] 05-28-2023 Note HNO ID: [id number] Author: Gudelia Huitron MA Service: ? Author Type: Credit Collections Specialist Type: Progress Notes Filed: 05/28/2023 12:44 PM Note Text: POPULATION HEALTH NAVIGATION OUTREACH Action/I NO ANSWER Weather AnalyticsHART MESSAGE SENT ANNUAL MEDICARE WELLNESS Advance Directive Discussion Never done HbA1C due on 02/10/2023 Influenza Vaccine(1) due on 03/15/2023 Patient Identified by Name and : NO Outreach Outcome/Action Unable to reach patient: Phone number not valid / voicemail full TuTandahart message sent Did you use a PCP [...] Huitron MA May 28, 2023 7:41 AM [facility] 02-12-2023 Note Patient Outreach (IN TMMN) RICHARD ROY ([id number]) 1945 M Date Time Provider Department 02/12/23 ABDULAZIZ CALDERA During your visit today, we recorded the following information about you: Allergies As of Date: 02/12/2023 Noted Allergy Reaction PANTOPRAZOLE 09/24/2019 6 - Diarrhea Date Reviewed: 01/04/2023 Reviewed by: Tamika Grijalva LPN - Fully Assessed Visit Diagnosis:Diabetic retinopathy of right eye (HCC) [E11.319] Order(s):HGB A1C [FQCMX2P] Order #: [id number] FUTURE Prescriptions as of 02/15/2023 - metFORMIN [...] Encounter Status:Closed by SOLA RANDLE on 02/15/23 [facility] 01-28-2023 Miscellaneous Notes Miya with [facility] calls to report pt was admitted to their facility over the weekend. Miya is requesting immunization record be faxed to: [phone]. Immunization record faxed as requested. Tania Heller LPN documented in this encounter [facility] 01-24-2023 Miscellaneous Notes Phoned patient's and [...] Patient's calling to say patient was at [facility] for rehabilitation after his hospitalization @ [facility] for confusion on 01/04. He was sent by squad to [facility] from [facility] on 01/21 due to episode of decreased [...] post hospital stay but it won't be [facility]. Vannessa Jorge, JACEY documented in this encounter [facility] 01-04-2023 Note HNO ID: [id number] Author: Abdulaziz Caldera MD Service: ? Author [...] Benign-Dr. 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 ([facility]) 05/25/2018 History of transfusion Hyperlipidemia LDL goal < 100 04/01/2012 NSTEMI (non-ST elevated myocardial infarction) ([facility]) Pulmonary embolus, right ([facility]) 09/25/2013 Status post aortic valve repair 2005 Thoracic aneurysm without mention of rupture Type 2 diabetes mellitus with stage 3 chronic kidney disease, with long-term current use of insulin ([facility]) 06/20/2016 Vitamin D deficiency 01/03/2022 Previous Surgical History PAST SURGICAL HISTORY Procedure Laterality Date ABDOMINAL SURGERY HX AMPUTATION METATARSAL+TOE,SINGLE Right 05/25/2018 with delayed closure on 05/28/18. Dr. Obregon at [facility] COLONOSCOPY 10/10/2021 repeat in 3 [...] Yes Current Facility-Administ (more content not included)... [facility] 01-04-2023 Miscellaneous Notes Pt was seen [...] recommend ER evaluation. documented in this encounter [facility] 01-04-2023 Miscellaneous Notes No return call [...] Vannessa Jorge RN documented in this encounter [facility] 01-03-2023 Note HNO ID: [id number] Author: Justina Escoto PT Service: ? Author [...] included: Therapeutic exercise, Neuromuscular re-education, Therapeutic activities, Self-correction management, and Gait training. Goals for Episode [...] PARTIALLY MET, improved 8 to 9 reps Sibley in home exercise program including cardiovascular exercise. [...] in proper exercise (more content not included)... [facility] 01-03-2023 History of Presen t illness [...] included: Therapeutic exercise, Neuromuscular re-education, Therapeutic activities, Self-correction management, and Gait training. Goals for Episode [...] PARTIALLY MET, improved 8 to 9 reps Sibley in home exercise program including cardiovascular exercise. [...] with an (*). Patient education as noted. Self-Fpc Management: 1: *strongly enouraged f/u with physician [...] Justina Escoto PT documented in this encounter [facility] 12-31-2022 Note HNO ID: [id number] Author: Justina Escoto PT Service: ? Author [...] Treatment Time Minutes (timed/untimed): 42 Ira Ramos, BAR HOSTESS Justina Escoto, PT [facility] 12-31-2022 History of Presen t illness [...] ALISIA Burch PT documented in this encounter [facility] 12-27-2022 Note HNO ID: [id number] Author: Justina Escoto PT Service: ? Author [...] Treatment Time Minutes (timed/untimed): 40 Ira Ramos, BAR HOSTESS Justina Escoto, PT [facility] 12-27-2022 History of Presen t illness [...] ALISIA Burch PT documented in this encounter [facility] 12-24-2022 Note HNO ID: [id number] Author: Justina Escoto PT Service: ? Author [...] was facilitated with verbal and visual cueing. Self-Fpc Management: 1: *strongly encouraged pt. to be [...] Time Minutes (timed/untimed): 40 Justina Escoto, PT [facility] 12-24-2022 History of Presen t illness [...] was facilitated with verbal and visual cueing. Self-Fpc Management: 1: *strongly encouraged pt. to be [...] Justina Escoto PT documented in this encounter [facility] 12-17-2022 Note HNO ID: [id number] Author: Justina Escoto PT Service: ? Author [...] of gait belt. Patient education as noted. Self-Fpc Management: 1: *discussed automatic lights 2: *discussed [...] Time Minutes (timed/untimed): 40 Justina Escoto, PT [facility] 12-17-2022 History of Presen t illness [...] of gait belt. Patient education as noted. Self-Fpc Management: 1: *discussed automatic lights 2: *discussed [...] Justina Escoto PT documented in this encounter [facility] 12-14-2022 Note HNO ID: [id number] Author: Justina Escoto PT Service: ? Author [...] Time Minutes (timed/untimed): 40 Justina Escoto, PT [facility] 12-14-2022 History of Presen t illness [...] Justina Escoto PT documented in this encounter [facility] 12-12-2022 Note HNO ID: [id number] Author: Justina Escoto PT Service: ? Author [...] Time Minutes (timed/untimed): 40 Justina Escoto, PT [facility] 12-12-2022 History of Presen t illness [...] Justina Escoto PT documented in this encounter [facility] 12-06-2022 Note HNO ID: [id number] Author: uJstina Escoto, PT Service: ? Author Type: Physical [...] 10 Total Treatment Time Minutes (timed/untimed): 40 Justian Escoto, PT [facility] 12-03-2022 Note HNO ID: [id number] Author: Bobbi Garcia MD Service: ? Author Type: Physician Type: Progress Notes Filed: 12/03/2022 12:13 PM Note Text: [facility] CARDIOLOGY Cardiology ([facility]) [address] [id number] OUTPATIENT VISIT DATE 12/03/2022 PRIMARY CARE PHYSICIAN: Abdulaziz Caldera [address] [place] [address] HISTORY OF PRESENT ILLNESS: Mr. 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 ([facility]) 05/25/2018 History of transfusion Hyperlipidemia LDL goal < 100 04/01/2012 NSTEMI (non-ST elevated myocardial infarction) ([facility]) Pulmonary embolus, right ([facility]) 09/25/2013 Status post aortic valve repair 2005 Thoracic aneurysm without mention of rupture Type 2 diabetes mellitus with stage 3 chronic kidney disease, with long-term current use of insulin ([facility]) 06/20/2016 Vitamin D deficiency 01/03/2022 PAST SURGICAL HISTORY Procedure Laterality Date ABDOMINAL SURGERY HX AMPUTATION METATARSAL+TOE,SINGLE Right 05/25/2018 with delayed closure on 05/28/18. Dr. Obregon at [facility] COLONOSCOPY 10/10/2021 repeat in 3 [...] 5 EachRfl: 5 warfarin (COUMADIN) 5 mg [id number] mg Saturday and Saturday, 7.5 mg all [...] Units subcutaneously daily (more content not included)... [facility] 12-03-2022 Note HNO ID: [id number] Author: Justina Escoto, PT Service: ? Author [...] facilitated with verbal, visual, and tactile cueing. Self-Fpc Management: 1: *at length discussed importance of letting physician know about pt. concerns with his loss of interest in things prior to COVID-19 pandemic 2: *discussed that motivation will come from the pt. not from the or the therapist -- and this will directly influence pt. long-term progress. 3: *discussed with and pt. that pt. stating I'm lazy. is not his personality and pt. states that he does not want to be this way, but he wants to be comfortable. (more content not included)... [facility] 11-29-2022 Note HNO ID: [id number] Author: Justina Escoto, PT Service: ? Author [...] 11 repetitions to reflect decreased fall risk. Sibley in home exercise program including cardiovascular exercise. [...] Planned: 12 Planned Treatment Interventions: Therapeutic exercise (70845), Neuromuscular re-education (90571), Manual therapy (10436), Therapeutic activities (90528), Self-correction management (77925), Gait Training (29154), Patient/Family/Caregiver Education PLAN FOR NEXT VISIT: Assess [...] <20 [facility] (more content not included)... [facility] 11-20-2022 Miscellaneous Notes OMAR 11/19/22 Appointment [...] to the pharmacy. Please call patient at: [phone]. Nola Castro Pss documented in this encounter [facility] 11-19-2022 Miscellaneous Notes Pt notified of [...] result): 09/24/2022 2.5 documented in this encounter [facility] 11-19-2022 Note HNO ID: [id number] Author: Abdulaziz Caldera MD Service: ? Author [...] Benign-Dr. 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 ([facility]) 05/25/2018 History of transfusion Hyperlipidemia LDL goal < 100 04/01/2012 NSTEMI (non-ST elevated myocardial infarction) ([facility]) Pulmonary embolus, right ([facility]) 09/25/2013 Status post aortic valve repair 2004 Thoracic aneurysm without mention of rupture Type 2 diabetes mellitus with stage 3 chronic kidney disease, with long-term current use of insulin ([facility]) 06/20/2016 Vitamin D deficiency 01/03/2022 Previous Surgical History PAST SURGICAL HISTORY Procedure Laterality Date ABDOMINAL SURGERY HX AMPUTATION METATARSAL+TOE,SINGLE Right 05/25/2018 with delayed closure on 05/28/18. Dr. Obregon at [facility] COLONOSCOPY 10/10/2021 repeat in 3 [...] chloride 0.9 % (more content not included)... [facility] 10-22-2022 Note HNO ID: [id number] Author: Arminda Obregon Service: ? Author Type: [...] RTC in 3-4 months. Arminda Obregon DPM [facility] 10-22-2022 Note HNO ID: [id number] Author: Blaire Sandoval RN Service: ? Author Type: ? Type: Progress Notes Filed: 10/22/2022 3:47 PM Note Text: Patient presents with: Left Foot - Established Patient, Diabetic Foot Care Right Foot - Established Patient, Diabetic Foot Care [facility] 10-22-2022 History of Presen t illness [...] Diabetic Foot Care documented in this encounter [facility] 10-22-2022 Instructions Arminda Obregon - 10/22/2022 [...] (or decreased sensation in your feet) a engineering officer should always cut your toenails. Be Careful [...] Go to your health care provider or engineering officer to treat these conditions. documented in this encounter [facility] 09-25-2022 Miscellaneous Notes Patient notified. Voices [...] or narrative: no documented in this encounter [facility] 09-07-2022 Note HNO ID: [id number] Author: Tamie Kaur MD Service: ? Author [...] evaluation of folllow up after hospitalization in [facility]. he was admitted because of syncopal [...] others Since covid hit they went to [facility] and was staying in the house by [...] Benign-Dr. 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 ([facility]) 05/25/2018 History of transfusion Hyperlipidemia LDL goal < 100 04/01/2012 NSTEMI (non-ST elevated myocardial infarction) ([facility]) Pulmonary embolus, right ([facility]) 09/25/2013 Status post aortic valve repair 2004 Thoracic aneurysm without mention of rupture Type 2 diabetes mellitus with stage 3 chronic kidney disease, with long-term current use of insulin ([facility]) 06/20/2016 Vitamin D deficiency 01/03/2022 PSH: PAST SURGICAL HISTORY Procedure Laterality Date ABDOMINAL SURGERY HX AMPUTATION METATARSAL+TOE,SINGLE Right 05/25/2018 (more content not included)... [facility] 09-07-2022 Miscellaneous Notes Call to patient. Provided number to schedule- [phone]. Offered to transfer patient to schedule but patient declined to schedule stating he could call later. PAOLA Potter, RN September 07, 2022 1:11 PM Suzanne please let patient know how to proceed with driving evaluation I already put the order in computer documented in this encounter [facility] 09-07-2022 History of Presen t illness [...] evaluation of folllow up after hospitalization in [facility]. he was admitted because of syncopal [...] others Since covid hit they went to [facility] and was staying in the house by [...] Benign-Dr. 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 ([facility]) 05/25/2018 History of transfusion Hyperlipidemia LDL goal < 100 04/01/2012 NSTEMI (non-ST elevated myocardial infarction) ([facility]) Pulmonary embolus, right ([facility]) 09/25/2013 Status post aortic valve repair 2005 Thoracic aneurysm without mention of rupture Type 2 diabetes mellitus with stage 3 chronic kidney disease, with long-term current use of insulin ([facility]) 06/20/2016 Vitamin D deficiency 01/03/2022 PSH: PAST SURGICAL HISTORY Procedure Laterality Date ABDOMINAL SURGERY HX AMPUTATION METATARSAL+TOE,SINGLE Right 05/25/2018 with delayed closure on 05/28/18. Dr. Obregon at [facility] COLONOSCOPY 10/10/2021 repeat in 3 [...] one time a week. blood sugar diagnostic ([employer] ULTRA TEST) test strip Test blood sugar(s) [...] gait ,unsteady Cannot tandem Tamie Kaur M.D. [facility] Department of Neurology Total time in minutes [...] on at night. documented in this encounter [facility] 08-28-2022 Miscellaneous Notes Phoned patient and [...] debra Heller LPN documented in this encounter [facility] 08-16-2022 Miscellaneous Notes Patient has been [...] patient. Grecia Bustillo documented in this encounter [facility] 08-14-2022 Miscellaneous Notes Phoned patient and [...] or narrative: no documented in this encounter [facility] 08-09-2022 Note HNO ID: [id number] Author: Abdulaziz Caldera MD Service: ? Author [...] 12 months ago. Going to schedule appointment [facility]. 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 Asymtpomatic still on medical management. Has completed his home PT/OT. Echo and stress test at [facility] were negative/normal. Has follow up with Dr. Garcia on 12/03. questioning if they should be seen sooner. BP well controlled with current regimen <130/80. BPH: With use of flomax, patient is getting up once at night to urinate. Has weak stream, but denies straining, incomplete emptying, dysuria, hematuria, incontinence. Followed up with ENT in [place] for chronic frontal sinusitis on CT/MRI going [...] delayed closure on 05/28/18. Dr. Obregon at [facility] COLONOSCOPY 10/10/2021 repeat in 3 [...] daily. For cholesterol. (more content not included)... [facility] 08-09-2022 History of Presen t illness [...] 12 months ago. Going to schedule appointment [facility]. 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 Asymtpomatic still on medical management. Has completed his home PT/OT. Echo and stress test at [facility] were negative/normal. Has follow up with Dr. Garcia on 12/03. questioning if they should be seen sooner. BP well controlled with current regimen <130/80. BPH: With use of flomax, patient is getting up once at night to urinate. Has weak stream, but denies straining, incomplete emptying, dysuria, hematuria, incontinence. Followed up with ENT in [place] for chronic frontal sinusitis on CT/MRI going [...] goal < 100 04/01/2012 Pulmonary embolus, right ([facility]) 09/25/2013 Status post aortic valve repair 2005 Thoracic aneurysm without mention of rupture Type 2 diabetes mellitus with stage 3 chronic kidney disease, with long-term current use of insulin ([facility]) 06/20/2016 Vitamin D deficiency 01/03/2022 Previous Surgical History PAST SURGICAL HISTORY Procedure Laterality Date ABDOMINAL SURGERY HX AMPUTATION METATARSAL+TOE,SINGLE Right 05/25/2018 with delayed closure on 05/28/18. Dr. Obregon at [facility] COLONOSCOPY 10/10/2021 repeat in 3 [...] by mouth once daily. blood sugar diagnostic ([employer] ULTRA TEST) test strip Test blood sugar(s) [...] Abs Lymph 1.00 - 4.00 k/uL 1.81 Garden% % 6.9 Abs Garden <0.87 k/uL 0.86 Eosin% % 3.1 Abs [...] neuropathy, with long-term current use of insulin ([facility]) - ICD9: 250.60, 357.2, V58.67, ICD10: E11.40, Z79.4 (primary diagnosis) improved control - Continue current medications - Blood glucose monitoring on a four times a day schedule - Encouraged regular aerobic exercise and weight loss - Follow up in 6 months, sooner should any other issues arise. - Discussed diabetic education issues of long-term diabetic complications, hypoglycemic symptoms, hyperglycemic symptoms, diet, medications- side effects and need for compliance, importance of exercise, use and side effects of insulin, and importance of annual examinations with Opthalmology with patient. - HGB A1C - COMP METABOLIC PANEL - INSULIN ASPART (U-100) 100 UNIT/ML (3 ML) SUBCUTANEOUS PEN - CBC + DIFF 2. Diabetic polyneuropathy associated with type 2 diabetes mellitus ([facility]) - ICD9: 250.60, 357.2, ICD10: E11.42 Controlled on current regimen. 3. NSTEMI (non-ST elevated myocardial infarction) ([facility]) - ICD9: 410.70, ICD10: I21.4 Patient [...] Abdulaziz Caldera MD documented in this encounter [facility] 08-06-2022 Miscellaneous Notes Phoned patient and updated him with provider's message. Patient voiced understanding. I would not recommend a baby ASA for this patient. Pt called to check on refill on baby aspirin. This is not on med list. Pt asking if he should be taking this. Please advise pt. Mila Castro LPN documented in this encounter [facility] 08-06-2022 Note HNO ID: [id number] Author: Arminda Jaimes MD Service: ? Author [...] physician via mail or electronic medical record. [facility] 08-06-2022 History of Presen t illness [...] electronic medical record. documented in this encounter [facility] 07-31-2022 Miscellaneous Notes Spoke with patient [...] Rebecca Esteban LPN documented in this encounter [facility] 07-27-2022 Miscellaneous Notes [employer] message not read as of 07/27/2022. Called and spoke with patient. Appt rescheduled to 09/07/2022 at 11:00 AM Meghana Burgess Due to change in provider's schedule, appt on 08/21/2022 needs rescheduled. Patient notified via [employer] message on 07/05/2022. Meghana Burgess documented in this encounter [facility] 07-26-2022 Miscellaneous Notes Thanks. Darlyn, a nurse with [facility] calling to state she has discharged pt from jail today. Pt is doing really well. No call back needed. Thank you. documented in this encounter [facility] 01-11-2023 Miscellaneous Notes Last Office Visit: 07/12/2022 Future Office Visit: 08/09/2022 Requested Prescriptions Pending Prescriptions Disp Refills amLODIPine (NORVASC) 2.5 mg tablet 30 tablet 5 Sig: Take 1 tablet by mouth once daily. Date of Last Labs: 03/02/2022 documented in this encounter [facility] 07-17-2022 Miscellaneous Notes Reviewed and agree. Maverikc PT calling from [facility] to report plan of care for patient and PT will visit patient 2 times a week for 3 weeks. PT will work with patient on functional mobility training. Halima Diaz RN documented in this encounter [facility] 07-17-2022 Miscellaneous Notes Reviewed. Barbi from [facility] Home Health calling with OT plan of care, one time visit only, patient denies any further OT needs. No call back needed. documented in this encounter [facility] 07-13-2022 Miscellaneous Notes Left detailed message on confidential line Ewa Andino Ma agree Chiki, a nurse with [facility] calling with Alf Plan of Care for patient: Patient will be seen 1 time per week for 4 weeks for BP monitoring. No call back needed if provider agreeable. Thank you. documented in this encounter [facility] 07-12-2022 Note HNO ID: [id number] Author: Abdulaziz Caldera MD Service: ? Author Type: Physician Type: Progress Notes Filed: 07/17/2022 8:33 AM Note Text: Chief Complaint Patient presents with: Hospital F/U: Admitted 07/09/22 discharged 07/11/22 HPI Richard Roy is a 76 year old male who presents here today for Hospital Discharge Follow up.. Patient was admitted to [facility] from 07/09 to 07/11 after [...] to follow up with our office and obstetrical nurse. Since discharge yesterday, patient has been doing [...] Benign-Dr. 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 ([facility]) 05/25/2018 History of transfusion Hyperlipidemia LDL goal < 100 04/01/2012 Pulmonary embolus, right ([facility]) 09/25/2013 Status post aortic valve repair 2004 Thoracic aneurysm without mention of rupture Type 2 diabetes mellitus with stage 3 chronic kidney disease, with long-term current use of insulin ([facility]) 06/20/2016 Vitamin D deficiency 01/03/2022 Previous Surgical History PAST SURGICAL HISTORY Procedure Laterality Date ABDOMINAL SURGERY HX AMPUTATION METATARSAL+TOE,SINGLE Right 05/25/2018 with delayed closure on 05/28/18. Dr. Obregon at [facility] COLONOSCOPY 10/10/2021 repeat in 3 [...] 0.4 mg Take (more content not included)... [facility] 07-12-2022 Miscellaneous Notes Karly was notified Ewa Andino Ma Agree and will follow Karly with [facility] called and reports Pt was discharged yesterday and they received a referral for PT/OT/SN. They are going to do their start of care tomorrow, and she was asking if the provider would be willing to follow. documented in this encounter [facility] 07-09-2022 Miscellaneous Notes Last Office Visit: 04/16/2022 Future Office Visit: 09/17/2022 Requested Prescriptions Pending Prescriptions Disp Refills dulaglutide (TRULICITY) 1.5 mg/0.5 mL pen injector 12 Each 3 Sig: Inject 1.5 mg subcutaneously one time a week. Inject once per week. Discard Pen After Date of Last Labs: 03/02/2022 documented in this encounter [facility] 07-03-2022 Note HNO ID: [id number] Author: Arminda Obregon Service: ? Author Type: [...] RTC in 3-4 months. Arminda Obregon DPM [facility] 07-03-2022 Note HNO ID: [id number] Author: Marcella Cox RN Service: ? Author Type: Registered Nurse Type: Progress Notes Filed: 07/03/2022 11:17 AM Note Text: Patient presents with: Left Foot - Established Patient, Follow Up, nail care Right Foot - Established Patient, Follow Up, nail care [facility] 07-02-2022 Note HNO ID: [id number] Author: Bobbi Garcia MD Service: ? Author Type: Physician Type: Progress Notes Filed: 07/02/2022 12:42 PM Note Text: [facility] CARDIOLOGY Cardiology ([facility]) [address] [facility] [facility] [id number] OUTPATIENT VISIT DATE 07/02/2022 PRIMARY CARE PHYSICIAN: Abdulaziz Caldera [address] [place] [address] HISTORY OF PRESENT ILLNESS: Mr. Roy is [...] Last OV with Justina Hadley [facility] 01/01/2022: Richard Roy is a 76 [...] Benign-Dr. 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 ([facility]) 05/25/2018 History of transfusion Hyperlipidemia LDL goal < 100 04/01/2012 Pulmonary embolus, right ([facility]) 09/25/2013 Status post aortic valve repair 2005 Thoracic aneurysm without mention of rupture Type 2 diabetes mellitus with stage 3 chronic kidney disease, with long-term current use of insulin ([facility]) 06/20/2016 Vitamin D deficiency 01/03/2022 PAST SURGICAL HISTORY Procedure Laterality Date ABDOMINAL SURGERY HX AMPUTATION METATARSAL+TOE,SINGLE Right 05/25/2018 with delayed closure on 05/28/18. Dr. Obregon at [facility] COLONOSCOPY 10/10/2021 repeat in 3 [...] at bedtime.Disp: 3 (more content not included)... [facility] 06-25-2022 Miscellaneous Notes Last appt: 04/16/22 [...] Tania Heller LPN documented in this encounter [facility] 05-16-2022 Miscellaneous Notes Patient has been [...] Mila Castro LPN documented in this encounter [facility] 04-17-2022 History of Presen t illness [...] evaluation of folllow up after hospitalization in [facility]. he was admitted because of syncopal [...] others Since covid hit they went to [facility] and was staying in the house by [...] delayed closure on 05/28/18. Dr. Obregon at [facility] COLONOSCOPY 10/10/2021 repeat in 3 [...] week. Discard Pen After blood sugar diagnostic (Intelipost ULTRA TEST) test strip Test blood sugar(s) [...] gait ,unsteady Cannot tandem Tamie Kaur M.D. [facility] Department of Neurology Total time in minutes [...] on at night. documented in this encounter [facility] 04-17-2022 Miscellaneous Notes Reviewed. Behavioral Health Social Work Progress Note Patient identified for [facility] from: PCP Reason for referral: Resources Behavioral Health Resources: Psychology - talk therapy [facility] encounter type: Telephone Encounter Attempts to Outreach: 1 attempt Referral made: Psychology - External Psychology-External referral type: Therapy Reason for external referral: Wait times at [facility] too long Final Disposition: Resources given Patient Discharged?: Yes Patient reported that caregiver was able to meet their needs today?: Yes SW placed a phone call to patient at the request of the PCP. Pt reported he is looking for talk therapy referrals at this time. SW provided the following referrals via phone: [facility] [address], [facility], [facility] [address] *[facility] [address] [address] *counseling [facility] [address], [address] [place] [address] *counseling [facility] [address] [place] [address] FEDERICO Zamudio April 17, 2022 documented in this encounter [facility] 04-16-2022 History of Presen t illness [...] (HCC) 09/08/2010 Diabetic retinopathy of right eye ([facility]) mild Diverticulosis of colon (without mention [...] delayed closure on 05/28/18. Dr. Obregon at [facility] COLONOSCOPY 10/10/2021 repeat in 3 [...] week. Discard Pen After blood sugar diagnostic (MobioTOUCH ULTRA TEST) test strip Test blood sugar(s) [...] Abs Lymph 1.00 - 4.00 k/uL 1.81 Garden% % 6.9 Abs Garden <0.87 k/uL 0.86 Eosin% % 3.1 Abs [...] disease, with long-term current use of insulin ([facility]) - ICD9: 250.40, 585.3, V58.67, ICD10: E11.22, N18.31, Z79.4 (primary diagnosis) Controlled. - Continue current medications - Blood glucose monitoring on a 3 times a day schedule - Encouraged regular aerobic exercise and weight loss - Follow up in 6 months, sooner should any other issues arise. - Discussed diabetic education issues of long-term diabetic complications, hypoglycemic symptoms, hyperglycemic symptoms, diet, [...] Abdulaziz Caldera MD documented in this encounter [facility] documented in this encounter [facility] History of Present illness Narrative* Roselia Madrigal, PRINTED CIRCUIT BOARD PANELS PLATER.ANATOMIC PATHOLOGIST - 04/06/2022 9:40 AM EDT 04/06/2022 Patient [...] Benign-Dr. 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 FOR CHOLESTEROL. blood sugar diagnostic (Intelipost ULTRA TEST) test strip Test blood sugar(s) [...] SEASONAL QUADRIVALENT HIGH DOSE AGE 65+ - [employer]Piper COVID-19 BIVALENT BOOSTER VACCINE, AGE 12+ YR [...] which included preparing to see the patient, [id number] patient care, completing clinical documentation, obtaining and/or reviewing separately obtained history, performing a medically appropriate examination, and counseling and educating the patient/family/caregiver. [facility] Miscellaneous Notes* Telephone Encounter - Valencia [...] AM EDT ----- Message from Roselia Madrigal APRN.ANATOMIC PATHOLOGIST sent at 04/03/2022 2:47 PM EDT ----- Please forward INR to doctor education dean Roselia Madrigal APRN.ANATOMIC PATHOLOGIST documented in this encounterK[facility]09[facility] History of Present illness Narrative* Arminda [...] Care Merlene Martinez LPN documented in this encounterKettering [facility]09-16-2022 Instructions* Patient Instructions* Arminda Obregon - [...] (or decreased sensation in your feet) a engineering officer should always cut your toenails. Be Careful [...] Go to your health care provider or engineering officer to treat these conditions. documented in this encounterK[facility]09-[facility]22 History of Present illness Narrative* Rosa [...] 01/12/22 through 03/15/22 Goals updated on 03/23/2022. [place] in home exercise program. (Met) Patient will [...] Rosa Elena Poon PT documented in this encounterK[facility]09-08-2022 Miscellaneous Notes* Telephone Encounter - Maggy Ibarra Pss - 03/22/2022 1:49 PM EDT Pharmacy verified in [facility] Patient has been identified by name [...] advise. Maggy Ibarra Pss documented in this encounterK[facility]09-[facility]22 History of Present illness Narrative* Rosa [...] SPORTS THERAPY PHYSICAL THERAPY TREATMENT NOTE ASSESSMENT: Rihcard Roy tolerated the session with fatigue. He [...] Treatment Time Minutes (timed/untimed): 40 Karen Weber, BAR HOSTESS Rosa Elena Poon PT documented in this encounterKet[facility] Hospital08-29-2022 History of Present illness Narrative* Rosa [...] 41 ALISIA Whiting PT documented in this encounterKettering [facility] Hospital08-26-2022 Miscellaneous Notes* Addendum Note - Rosa Elena Poon PT - 03/09/2022 1:18 PM EDTAddended by: ROSA ELENA POON on: 03/09/2022 01:18 PM Modules accepted: Orders documented in this encounterKettering [facility] Hospital08-26-2022 History of Present illness Narrative* Rosa [...] 01/12/22 through 03/15/22 Goals updated on 03/09/2022. [place] in home exercise program. (Met) Patient will [...] Patient to be seen for Therapeutic exercise (14029);Neuromuscular re-education (61908);Gait Training (73043);Patient/Family/Caregiver Education PLAN FOR NEXT VISIT: Add bridging [...] Rosa Elena Lemon, PT documented in this encounterKet[facility] Hospital08-24-2022 Miscellaneous Notes* Telephone Encounter - Amada [...] testing Madison Ma Cma documented in this encounterKettering [facility] Hospital08-24-2022 Instructions* Patient Instructions* Abdulaziz Caldera MD - 03/07/2022 11:45 AM EDT Please take 2,000 units of vitamin D daily over the counter. documented in this encounterKettering [facility] Hospital08-24-2022 History of Present illness Narrative* Abdulaziz Caldera MD - 03/07/2022 11:19 AM EDT Chief Complaint Patient presents with: 6 Month Exam ER F/U HPI Richard Roy is a 76 year old male who presents here today for ER Follow Up.. Patient evaluated at [facility] ED on 03/02 for complaint [...] Benign-Dr. 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 ([facility]) 05/25/2018 History of transfusion Hyperlipidemia LDL goal < 100 04/01/2012 Pulmonary embolus, right ([facility]) 09/25/2013 Status post aortic valve repair 2004 Thoracic aneurysm without mention of rupture Type 2 diabetes mellitus with stage 3 chronic kidney disease, with long-term current use of insulin([facility]) 06/20/2016 Vitamin D deficiency 01/03/2022 Previous Surgical History PAST SURGICAL HISTORY Procedure Laterality Date ABDOMINAL SURGERY HX AMPUTATION METATARSAL+TOE,SINGLE Right 05/25/2018 with delayed closure on 05/28/18. Dr. Obregon at [facility] COLONOSCOPY 10/10/2021 repeat in 3 [...] ONCE DAILY. FOR CHOLESTEROL. blood sugar diagnostic (Intelipost ULTRA TEST) test strip Test blood sugar(s) [...] Abs Lymph 1.00 - 4.00 k/uL 1.81 Garden% % 6.9 Abs Garden <0.87 k/uL 0.86 Eosin% % 3.1 Abs [...] PANEL Abdulaziz Caldera MD documented in this encounterKettering [facility] Hospital08-22-2022 History of Present illness Narrative* Rosa [...] Rosa Elena Poon PT documented in this encounterKettering [facility] Hospital08-19-2022 History of Present illness Narrative* Rosa [...] Rosa Elena Poon PT documented in this encounterKettering [facility] Hospital08-15-2022 History of Present illness Narrative* Rosa [...] Rosa Elena Poon PT documented in this encounterKettering [facility] Hospital08-12-2022 History of Present illness Narrative* Rosa [...] 43 ALISIA Whiting PT documented in this encounterKettering [facility] Hospital08-03-2022 History of Present illness Narrative* Rosa [...] Rosa Elena Poon PT documented in this encounterKettering [facility] Hospital07-29-2022 History of Present illness Narrative* Rosa [...] 01/12/22 through 03/15/22 Goals updated on 02/09/2022. [place] in home exercise program. (Met) Patient will [...] Patient to be seen for Therapeutic exercise (32544);Neuromuscular re-education (00249);Gait Training (15674);Patient/Family/Caregiver Education PLAN FOR NEXT VISIT: Continue to [...] Rosa Elena Poon PT documented in this encounterKettering [facility] Hospital07-26-2022 Miscellaneous Notes* Telephone Encounter - Nola [...] patient. Nola Castro Pss documented in this encounterKettering [facility] Hospital07-22-2022 History of Present illness Narrative* Cortney [...] 43 ALISIA Whiting, PT documented in this encounterKettering [facility] Hospital07-21-2022 Miscellaneous Notes* Telephone Encounter - Mila [...] No need to notify patient. Eulalia [facility]aston [facility] documented in this encounterKettering [facility] Hospital07-19-2022 History of Present illness Narrative* Justina [...] 43 ALISIA Whiting PT documented in this encounterKettering [facility] Hospital07-12-2022 Miscellaneous Notes* Telephone Encounter - Rebecca [...] you. Rebecca Gonzales RN documented in this encounterKettering [facility] Hospital07-12-2022 History of Present illness Narrative* Chiki [...] Total Treatment Time Minutes (timed/untimed): 45 ALISIA Whtiing PT documented in this encounterKettering [facility] Hospital07-08-2022 Miscellaneous Notes* Telephone Encounter - Maggy [...] on driving. Please advise. documented in this encounterKettering [facility] Hospital07-01-2022 History of Present illness Narrative* Rosa [...] of Care: created on 01/12/22 through 03/15/22 [place] in home exercise program. Patient will demonstrate [...] Planned: 16 Planned Treatment Interventions: Therapeutic exercise (99518);Neuromuscular re- education (22876);Gait Training (47400);Patient/Family/Caregiver Education PLAN FOR NEXT VISIT: Review HEP [...] Rosa Elena Poon PT documented in this encounterKettering [facility] Hospital07-01-2022 Miscellaneous Notes* Telephone Encounter - Ewa [...] Pending consult. Please advise documented in this encounterKettering [facility] Hospital06-29-2022 Miscellaneous Notes* Telephone Encounter - Mila [...] his syncope/collapse. Thank you! documented in this encounterKettering [facility] Hospital06-29-2022 Miscellaneous Notes* Result QuickNote - Justina Hadley APRN.CNP - 01/10/2022 11:33 AM EDT Please call patient and notify him. Echocardiogram is stable. Valve replacement function is stable.No cardiac structure/function changes to explain his syncope/collapse. Thank you! documented in this encounterKettering [facility] Hospital06-24-2022 History of Present illness Narrative* Tamie [...] medical record. REFERRING PHYSICIAN: Abdulaziz Caldera [address] [facility] [address] Accompanied by: Spouse ASSESSMENT: 76 year old [...] evaluation of folllow up after hospitalization in [facility]. he was admitted because of syncopal [...] others Since covid hit they went to [facility] and was staying in the house by [...] delayed closure on 05/28/18. Dr. Obregon at [facility] COLONOSCOPY 10/10/2021 repeat in 3 [...] by mouth once daily. blood sugar diagnostic (Katalyst NetworkUCH ULTRA TEST) test strip Test blood sugar(s) [...] gait ,unsteady Cannot tandem Tamie Kaur M.D. [facility] Department of Neurology January 05, 2022 Total [...] lights on at night. documented in this encounterKettering Memorial Hospital06-21-2022 Miscellaneous Notes* Telephone Encounter - Justina Martinez LPN - 01/02/2022 8:06 AM EDT I spoke to and informed him of Justina's response to lipid panel results. Patient voiced understanding. Justina Martinez LPN * Telephone Encounter - Justina Martinez LPN - 01/02/2022 7:43 AM EDT ----- Message from Justina Hadley APRN.ANATOMIC PATHOLOGIST sent at 01/02/2022 7:38 AM EDT ----- Please call patient and notify him cholesterol has good control. Thank you! documented in this encounterKettering [facility] Hospital06-20-2022 History of Present illness Narrative* Abdulaziz Caldera MD - 01/01/2022 10:20 AM EDT Chief Complaint Patient presents with: Hospital Follow Up: [facility] discharged 12/29/21 HPI Richard Roy is a 76 year old male who presents here today for Hospital Discharge Follow up. Accompanied today by his . Patient admitted to [facility] from 12/27 to 12/29 after presenting to the [facility] ED after being found slumped over his tractor at home earlier in the afteernoon. Had been working outside for unknown period of time. Had only eaten cookies and milk that day. Heat index over 100. Back to baseline at the time of evaluation by hospitalist at [facility]. Found to have leukocytosis at [facility] and elevated lactic acid level. Noted [...] echo since it was not completed at [facility]. No other changes to regimen. [...] kidney disease, with long-term current use of insulin([facility]) 06/20/2016 Previous Surgical History PAST SURGICAL HISTORY Procedure Laterality Date ABDOMINAL SURGERY HX AMPUTATION METATARSAL+TOE,SINGLE Right 05/25/2018 with delayed closure on 05/28/18. Dr. Obregon at [facility] COLONOSCOPY 10/10/2021 repeat in 3 [...] by mouth once daily. blood sugar diagnostic (Intelipost ULTRA TEST) test strip Test blood sugar(s) [...] SCRN Abdulaziz Caldera MD documented in this encounterKettering Memorial Hospital06-20-2022 Instructions* Patient Instructions* Justina Hadley APRN.ANATOMIC PATHOLOGIST - 01/01/2022 9:05 AM EDT High Blood [...] risk for high blood pressure. Developed by [employer]. Published by [employer]. Copyright 2014 [employer] and/or one of its subsidiaries. All rights reserved. documented in this encounterKettering Memorial Hospital06-20-2022 History of Present illness Narrative* Justina [...] amputation of first toe of right foot ([facility]) 05/25/2018 History of transfusion Hyperlipidemia LDL goal < 100 04/01/2012 Pulmonary embolus, right ([facility]) 09/25/2013 Status post aortic valve repair 2004 Thoracic aneurysm without mention of rupture Type 2 diabetes mellitus with stage 3 chronic kidney disease, with long-term current use of insulin([facility]) 06/20/2016 PAST SURGICAL HISTORY Procedure Laterality Date ABDOMINAL SURGERY HX AMPUTATION METATARSAL+TOE,SINGLE Right 05/25/2018 with delayed closure on 05/28/18. Dr. Obregon at [facility] COLONOSCOPY 10/10/2021 repeat in 3 [...] injection (DEFINITY) INTRAVENOUS DIRECTED PRN Justina Hadley, PRINTED CIRCUIT BOARD PANELS PLATER.ANATOMIC PATHOLOGIST sodium chloride 0.9 % (flush) 10 mL (BD POSIFLUSH) 10 mL INTRAVENOUS DIRECTED PRN Justina Hadley, PRINTED CIRCUIT BOARD PANELS PLATER.ANATOMIC PATHOLOGIST Review of Systems Constitutional: Negative for chills, [...] MRI of his head CAD -MILD on [facility] 2004 -stress testing 2013 with [...] 01, 2022, 8:57 AM documented in this encounterKettering [facility] Hospital06-19-2022 Note. MICRO - Microbiology PROCEDURE: Blood Culture (bacterial) [*1] SOURCE: Blood BODY SITE: COLLECTED DATE/TIME: 12/27/2021 17:43 EDT RECEIVED DATE/TIME: 12/28/2021 14:37 EDT START DATE/TIME: 12/28/2021 14:37 EDT FREE TEXT SOURCE: FINAL REPORTS Final Report [] Verified Date/Time/Personnel: 12/31/2021 07:29 EDT Staphylococcus epidermidis Isolated from anaerobe bottle only. Refer to previous culture for susceptibility. [id number] PRELIMINARY REPORTS Preliminary Report [] Verified Date/Time/Personnel: 12/30/2021 09:39 EDT Staphylococcus epidermidis Isolated from anaerobe bottle only. Refer to previous culture for susceptibility. [id number] Preliminary Report [] Verified Date/Time/Personnel: 12/28/2021 15:59 EDT Culture has been received in lab and is no growth to date. Routine cultures are held for 5 days. STAINS GSANA [] Verified Date/Time/Personnel: 12/29/2021 14:08 EDT Gram Positive Cocci in clusters Performing Locations *1: This test was performed at: [facility], [address] [place] [address], [facility] , [facility] ([place])12-31-2021 Note. MICRO - Microbiology PROCEDURE: Blood Culture [...] Locations *1: This test was performed at: [facility], [address] [place] [address], [id number] , [facility] ([place])12-27-2021 SARS-CoV-2 (COVID-19) RNA ANGELY+probe Ql (Nph)Positive 2 *ABN* (12/27/21 5:43 PM)AO Auto Urine SSComment on above:Result Comment: positive covid cvrb s. tona Evaluation + Plan note Diagnostic Tests Pending * Urinalysis 12/27/21 * Blood Culture (bacterial) 12/27/21 * Blood Culture (bacterial) 12/27/21 [facility] 06-02-2022 History of Present illness Narrative* bAdulaziz Caldera MD - 12/14/2021 3:13 PM EDT Chief Complaint Patient presents with: Covid Follow Up HPI Richard Roy is a 76 year old male who presents here today for Above Complaints.. Patient positive for COVID in the [facility] ER last week on 12/06. [...] Benign-Dr. 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 ([facility]) 05/25/2018 History of transfusion Hyperlipidemia LDL goal < 100 04/01/2012 Pulmonary embolus, right ([facility]) 09/25/2013 Status post aortic valve repair 2005 Thoracic aneurysm without mention of rupture Type 2 diabetes mellitus with stage 3 chronic kidney disease, with long-term current use of insulin([facility]) 06/20/2016 Previous Surgical History PAST SURGICAL HISTORY Procedure Laterality Date ABDOMINAL SURGERY HX AMPUTATION METATARSAL+TOE,SINGLE Right 05/25/2018 with delayed closure on 05/28/18. Dr. Obregon at [facility] COLONOSCOPY 10/10/2021 repeat in 3 [...] by mouth once daily. blood sugar diagnostic (MobioTOUCH ULTRA TEST) test strip Test blood sugar(s) [...] detail. Abdulaziz Caldera MD documented in this encounterK[facility]05[facility]27-[facility] History of Present illness Narrative* Abdulaziz [...] today for Above Complaints.. Patient evaluated at [facility] ER on 12/06 for complaint of generalized weakness, cough, and feeling off balance and developed cough which started on 12/04. Denied other COVID symptoms at that time. Lab workup in the ER was unremarkable aside from positive COVID test and INR of 3.3. UA unremarkable. CXR showed some ill defined densities in RLL which was likely 2/2 COVID infection. Crane to be well enough and discharged home [...] amputation of first toe of right foot ([facility]) 05/25/2018 History of transfusion Hyperlipidemia LDL goal < 100 04/01/2012 Pulmonary embolus, right ([facility]) 09/25/2013 Status post aortic valve repair 2005 Thoracic aneurysm without mention of rupture Type 2 diabetes mellitus with stage 3 chronic kidney disease, with long-term current use of insulin([facility]) 06/20/2016 Previous Surgical History PAST SURGICAL HISTORY Procedure Laterality Date ABDOMINAL SURGERY HX AMPUTATION METATARSAL+TOE,SINGLE Right 05/25/2018 with delayed closure on 05/28/18. Dr. Obregon at [facility] COLONOSCOPY 10/10/2021 repeat in 3 [...] by mouth once daily. blood sugar diagnostic (Intelipost ULTRA TEST) test strip Test blood sugar(s) [...] these interactions. Not interested [place] [facility] [place]. Since his symptoms are mild, he would prefer to rest at home. Discussed risks and benefits of treatment and that he is high risk for severe infection. Red flags for re-assessment reviewed with patient in detail. I spent a total of 25 minutes on the date of the service which included preparing to see the patient, [id number] patient care, completing clinical documentation, obtaining and/or reviewing separately obtained history, performing a medically appropriate examination, counseling and educating the pat ient/family/caregiver and ordering medications, tests, or procedures. Abdulaziz Caldera MD documented in this encounterK[facility]05-27-2022 Miscellaneous Notes* Telephone Encounter - Abdulaziz [...] with one of our providers or with [employer] care online. * Telephone Encounter - Rosa Elena Martinez [facility] - 12/08/2021 2:16 PM EDT Patient called stating he was at [facility] ER on 12/06. Tested positive for covid. Patient was informed tocontact the office within 5 days to inform. Please advise patient when he can be seen in office. documented in this encounterKet[facility] Hospital05-09-2022 Miscellaneous Notes* Telephone Encounter - Eulalia Gaston [facility] - 11/20/2021 9:49 AM EDT Patient has been identified by name and date of : Yes Pending Prescriptions Disp Refills METFORMIN ER 500 MG 24 HR TABLET,EXTENDED RELEASE Sig: Take 1 tablet by mouth daily with breakfast. NUHA: No OMAR-09/06/21 Labs-08/30/21 NOV-03/07/22 RX INSTRUCTIONS: Patient aware RX will be sent to pharmacy. No need to notify patient. Eulalia Excela [facility] documented in this encounterKettering [facility] Hospital04-11-2022 Instructions* Patient Instructions* Marcella Park PA-C - 10/23/2021 1:25 PM EDT -Recommend daily fiber supplement and plenty of fluids The following instructions are important for you related to your office visit today with the [facility]. INSTRUCTIONS FOR DIVERTICULA I recommend [...] you should contact our office immediately @ [phone] and ask to be transferred to the General Surgery department. The following instructions are important for you related to your office visit today with the [facility]. INSTRUCTIONS FOLLOWING A POLYP FOUND [...] you should contact our office immediately @ [phone] and ask to be transferred to the General Surgery department. documented in this encounterKettering [facility] Hospital04-11-2022 History of Present illness Narrative* Marcella Park PA-C - 10/23/2021 1:09 PM EDT FOLLOW UP VISIT - ENDOSCOPY NAME: Richard Bonilla [facility] NO.: [id number] DATE OF SERVICE: 10/23/2021 : 1945 REFERRING [...] which included preparing to see the patient, [id number] patient care, completing clinical documentation, obtaining and/or reviewing separately obtained history, counseling and educating the patient/family/caregiver, communicating with other HCPs (not separately reported), independently interpreting results (not separately reported) and communicating results to the patient/family/caregiver. Marcella Park PA-C documented in this encounterKettering [facility] Hospital03-29-2022 Nurse Note* Caroline Larkin RN - [...] answered. Caroline Larkin RN documented in this encounterKettering [facility] Hospital03-29-2022 History and physical note * Richard [...] Benign-Dr. 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 Dr. Obregon at [facility] COLONOSCOPY FLX DX W/COLLJ SPEC [...] by mouth once daily. blood sugar diagnostic (Katalyst NetworkUCH ULTRA TEST) test strip Test blood sugar(s) [...] patient was offered a [facility]procedure [facility]. I have counseled the patient [...] diagnosis) Marcella Park PA-C documented in this encounterKettering [facility] Hospital03-24-2022 Miscellaneous Notes* Telephone Encounter - Mila [...] send both by 10/06/21, so he can slat pickler. Patient aware RX will be sent to pharmacy. No need to notify patient. Violette Lockhart documented in this encounterKettering [facility] Hospital03-23-2022 Miscellaneous Notes* Telephone Encounter - Nelson [...] advise, Halima Diaz RN documented in this encounterKettering [facility] Hospital02-02-2022 Miscellaneous Notes* Telephone Encounter - Garland Vicente - 08/16/2021 9:36 AM EST 10-10-2021 [facility] documented in this encounterKettering [facility] Hospital01-13-2022 NoteHNO ID: [id number] Author: REY Burt Service: Radiology Author Type: Business Investor Type: Progress Notes Filed: 07/27/2021 10:50 AM [...] Roy DATE: July 27, 2021 TIME: 10:49 [id number] History of Past illness Narrative* Problem Noted [...] of this encounter (statuses as of 10/04/2021) [facility] of [facility] illness Narrative* Problem [...] of this encounter (statuses as of 10/05/2021) [facility] Narrative* Problem [...] of this encounter (statuses as of 10/11/2021) [facility] Narrative* Problem [...] of this encounter (statuses as of 10/16/2021) [facility] Narrative* Problem [...] of this encounter (statuses as of 10/27/2021) [facility] Narrative* Problem [...] of this encounter (statuses as of 11/20/2021) [facility] Narrative* Problem [...] of this encounter (statuses as of 12/12/2021) [facility] Narrative* Problem [...] of this encounter (statuses as of 12/13/2021) [facility] Narrative* Problem [...] of this encounter (statuses as of 12/14/2021) [facility] Narrative* Problem [...] of this encounter (statuses as of 01/01/2022) [facility] Narrative* Problem [...] of this encounter (statuses as of 01/02/2022) [facility] Narrative* Problem [...] of this encounter (statuses as of 01/02/2022) [facility] N[facility]ative* Problem [...] of this encounter (statuses as of 01/06/2022) [facility] N[facility]* Problem [...] of this encounter (statuses as of 01/10/2022) [facility]* Problem [...] of this encounter (statuses as of 01/11/2022) [facility]* Problem [...] of this encounter (statuses as of 01/12/2022) [facility]* Problem [...] of this encounter (statuses as of 01/12/2022) [facility]* Problem [...] of this encounter (statuses as of 01/19/2022) [facility]* Problem [...] of this encounter (statuses as of 01/23/2022) [facility]* Problem [...] of this encounter (statuses as of 01/25/2022) [facility]* Problem [...] of this encounter (statuses as of 01/30/2022) [facility]* Problem [...] of this encounter (statuses as of 02/01/2022) [facility]* Problem [...] of this encounter (statuses as of 02/02/2022) [facility]* Problem [...] of this encounter (statuses as of 02/02/2022) [facility]* Problem [...] of this encounter (statuses as of 02/06/2022) [facility]* Problem [...] of this encounter (statuses as of 02/09/2022) [facility]* Problem [...] of this encounter (statuses as of 02/14/2022) [facility]* Problem [...] of this encounter (statuses as of 02/26/2022) [facility]* Problem [...] of this encounter (statuses as of 03/02/2022) [facility]* Problem [...] of this encounter (statuses as of 03/05/2022) [facility]* Problem [...] of this encounter (statuses as of 03/07/2022) [facility]* Problem [...] of this encounter (statuses as of 03/08/2022) [facility]* Problem [...] of this encounter (statuses as of 03/09/2022) [facility] Problem [...] of this encounter (statuses as of 03/12/2022) [facility]* Problem [...] of this encounter (statuses as of 03/16/2022) [facility]* Problem [...] of this encounter (statuses as of 03/23/2022) [facility] Problem [...] of this encounter (statuses as of 04/03/2022) [facility] Problem [...] of this encounter (statuses as of 04/04/2022) [facility] Problem [...] of this encounter (statuses as of 04/06/2022) [facility] Problem [...] of this encounter (statuses as of 04/17/2022) [facility] Problem [...] of this encounter (statuses as of 04/17/2022) [facility] Problem [...] of this encounter (statuses as of 04/19/2022) [facility] Problem [...] of this encounter (statuses as of 05/16/2022) [facility] Problem [...] of this encounter (statuses as of 06/25/2022) [facility] Problem [...] of this encounter (statuses as of 07/14/2022) [facility] Problem [...] of this encounter (statuses as of 07/15/2022) [facility] Problem [...] of this encounter (statuses as of 07/18/2022) [facility] Problem [...] of this encounter (statuses as of 07/18/2022) [facility] Problem [...] of this encounter (statuses as of 07/19/2022) [facility] Problem [...] of this encounter (statuses as of 07/20/2022) [facility] Problem [...] of this encounter (statuses as of 07/25/2022) [facility] Problem [...] of this encounter (statuses as of 07/26/2022) [facility] Problem [...] of this encounter (statuses as of 07/27/2022) [facility] Problem [...] of this encounter (statuses as of 07/31/2022) [facility] Problem [...] of this encounter (statuses as of 08/06/2022) [facility] Problem [...] of this encounter (statuses as of 08/07/2022) [address] History of Past illness Narrative* Problem [...] of this encounter (statuses as of 08/09/2022) [address] History of Past illness Narrative* Problem [...] of this encounter (statuses as of 08/14/2022) [facility] Problem [...] of this encounter (statuses as of 08/16/2022) [facility] Problem [...] of this encounter (statuses as of 08/28/2022) [facility] Problem [...] of this encounter (statuses as of 09/07/2022) [facility] Problem [...] of this encounter (statuses as of 09/09/2022) [facility] Problem [...] of this encounter (statuses as of 09/25/2022) [facility] Problem [...] of this encounter (statuses as of 10/23/2022) [facility] Problem [...] of this encounter (statuses as of 11/20/2022) [facility] Problem [...] of this encounter (statuses as of 11/20/2022) [facility] Problem [...] of this encounter (statuses as of 12/13/2022) [facility] Problem [...] of this encounter (statuses as of 12/14/2022) [facility] Problem [...] of this encounter (statuses as of 12/18/2022) [facility] Problem [...] of this encounter (statuses as of 12/25/2022) [facility] Problem [...] of this encounter (statuses as of 12/27/2022) [facility] Problem [...] of this encounter (statuses as of 12/31/2022) [facility] Problem [...] of this encounter (statuses as of 01/03/2023) [facility] Problem [...] of this encounter (statuses as of 01/04/2023) [facility] Problem [...] of this encounter (statuses as of 01/04/2023) [facility] Problem [...] of this encounter (statuses as of 01/25/2023) [facility]* Problem [...] of this encounter (statuses as of 01/29/2023) [facility] note* Diagnosis Type 2 diabetes mellitus with diabetic neuropathy, with long-term current use of insulin (HCC) Status post aortic valve repair Other postprocedural status Chronic anticoagulation Long-term (current) use of anticoagulants [facility] Diagnosis Colon cancer screening Special [...] Diagnosis COVID-19- Primary [facility] Diagnosis Hyperlipidemia with target LDL less than 100- Primary Other and unspecified hyperlipidemia Primary hypertension Unspecified essential hypertension Thoracic aortic aneurysm without rupture (HCC) Thoracic aneurysm without mention of rupture 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 Syncope, unspecified syncope type Obesity, Class II, BMI 35-39.9 Obesity, unspecified [facility]* Diagnosis Syncope and collapse- Primary Altered mental status, unspecified altered mental status type Urinary incontinence, unspecified type Benign prostatic hyperplasia with nocturia Nocturia Vitamin D deficiency, unspecified Wound of left lower extremity, initial encounter Encounter for screening for malignant neoplasm of prostate Special screening for malignant neoplasm of prostate [facility] Diagnosis Abnormality of gait due to impairment of balance- Primary Altered mental status, unspecified altered mental status type [facility]* Diagnosis Chronic anticoagulation Long-term (current) use of anticoagulants Thoracic aortic aneurysm without rupture (HCC) Thoracic aneurysm without mention of rupture Status post aortic valve repair Other postprocedural status [facility]* Diagnosis Type 2 diabetes mellitus with diabetic neuropathy, with long-term current use of insulin (HCC)- Primary [facility]* Diagnosis Abnormality of gait due [...] vitamin D deficiency [facility]* Diagnosis Type 2 diabetes mellitus with stage 3 chronic kidney disease, with long-term current use of insulin (HCC) [facility] Abnormality of gait due to impairment of balance- Primary [facility] Diagnosis Type 2 diabetes mellitus with diabetic neuropathy, with long-term current use of insulin ([facility]) [facility] Diagnosis Abnormality of gait due [...] Abnormal coagulation profile ANTHONY (acute kidney injury) ([facility]) Acute kidney failure, unspecified [facility] Diagnosis Abnormality of gait due [...] polyneuropathy associated with type 2 diabetes mellitus ([facility]) [facility]* Diagnosis Generalized weakness- Primary Other malaise and fatigue Encounter for immunization Need for other specified prophylactic vaccination against single bacterial disease Mild depression Depressive disorder, not elsewhere classified [facility]* Diagnosis Generalized anxiety disorder- Primary [...] mellitus (HCC) NSTEMI (non-ST elevated myocardial infarction) ([facility]) Acute myocardial infarction, subendocardial infarction, episode [...] disease, with long-term current use of insulin ([facility]) 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, macular edema presence unspecified ([facility]) [facility] Diagnosis Driving safety issue- Primary Other specified personal history presenting hazards to health [facility] Diagnosis Onychomycosis- Primary Dermatophytosis of nail Pain in toe of left foot Pain in limb Amputated toe of right foot ([facility]) Diabetic polyneuropathy associated with type 2 diabetes mellitus ([facility]) [facility]* Diagnosis Spinal stenosis, lumbar region, without neurogenic claudication- Primary Primary osteoarthritis of both knees Primary localized osteoarthrosis, lower leg [facility] Diagnosis Spinal stenosis, lumbar region, without neurogenic claudication- Primary Primary osteoarthritis of both knees Primary localized osteoarthrosis, lower leg [facility] Diagnosis Spinal stenosis, lumbar region, without neurogenic claudication- Primary Primary osteoarthritis of both knees Primary localized osteoarthrosis, lower leg [facility]* Diagnosis Spinal stenosis, lumbar region, without neurogenic claudication- Primary Primary osteoarthritis of both knees Primary localized osteoarthrosis, lower leg [facility]* Diagnosis Spinal stenosis, lumbar region, without neurogenic claudication- Primary Primary osteoarthritis of both knees Primary localized osteoarthrosis, lower leg [facility]* Diagnosis Spinal stenosis, lumbar region, without neurogenic claudication- Primary Primary osteoarthritis of both knees Primary localized osteoarthrosis, lower leg [facility] Narr[facility] No data available for this section [facility] Hospital Discharge instructions No data available for this section [facility] Progress note No data available for this section [facility] Reason for referral (narrative)* Outpatient Procedure (Routine) - Closed Specialty Diagnoses / Procedures Referred By Contac t Referred To Contact [facility] Diagnoses Colon cancer screening Procedures COLONOSCOPY SCREENING COLONOSCOPY FLX DX W/COLLJ SPEC WHEN PFMarcella Cho PA-C [address] [place] [address] [facility] [place] [address] [phone] Referral ID Status Reason Start Date Expiration Date V isits Requested Visits Authorized [id number] Closed Auto-Generate d Referral 08/16/2021 08/16/2022 1 1 [facility] for referral (narrative)* Outpatient Procedure (Routine) - Closed Specialty Diagnoses / Procedures Referred By Contac t Referred To Contact [facility] Diagnoses Colon cancer screening Procedures COLONOSCOPY SCREENING COLONOSCOPY FLX DX W/COLLJ SPEC WHEN Marcella Alatorre PA-C [address] [place] [address] [facility] [place] [address] [place] [phone] Referral ID Status Reason Start Date Expiration Date V isits Requested Visits Authorized [id number] Closed Auto-Generate d Referral 08/16/2021 08/16/2022 1 1 [facility] for visit Narrative* Outpatient Procedure (Routine) - Closed Specialty Diagnoses / Procedures Referred By Contac t Referred To Contact [facility] Diagnoses Colon cancer screening Procedures COLONOSCOPY SCREENING COLONOSCOPY FLX DX W/COLLJ SPEC WHEN PFMarcella Cho PA-C [address] [place] [address] [facility] [address] [place] [phone] Referral ID Status Reason Start Date Expiration Date V isits Requested Visits Authorized [id number] Closed Auto-Generate d Referral 08/16/2021 08/16/2022 1 [facility] Procedure (Routine) - Closed Specialty Diagnoses / Procedures Referred By Linn carrillo Referred [facility] Diagnoses Chronic anticoagulation Thoracic aortic aneurysm without rupture (HCC) Status post aortic valve repair Procedures ECHO TTE W/DOPPLER, COMPLETE Justina Hadley, PRINTED CIRCUIT BOARD PANELS PLATER.ANATOMIC PATHOLOGIST [address] [place] [address] [facility] [address] [address] Referral ID Status Reason Start Date Expiration Date V isits Requested Visits Authorized [id number] Closed Auto-Generate d Referral 07/03/2021 07/03/2022 1 1 [facility] Advance Directives No Advanced Directives Records FoundDocuments on File Type Date Recorded 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 Advance Directive(s) 09/12/2021 7:14 AM Documents on File Type Date Recorded 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 Advance Directive(s) 09/12/2021 7:14 AM [...] Diagnoses Driving safety issue Procedures CONSULT TO MEDICAL SPECIALIST OCCUPATIONAL THERAPY EVAL HIGH COMPLEX 60 MINS Tamie Kaur MD [address] [place] [address] [facility] [place] [address] [place] [id number] Referral ID Status Reason Start Date Expiration Date Visits Requested Visits Authorized [id number] Authorized PCP Requested Referral Auto-Generate d Referral 09/07/2022 09/07/2023 99 99 Specialty Diagnoses / Procedures Referred By Contac t Referred To Contact [facility] Diagnoses Polyneuropathy Procedures CONSULT TO PHYSICAL THERAPY PHYSICAL THERAPY EVALUATION HIGH COMPLEX 45 MINS Tamie Kaur MD [address] [place] [address] [facility] [address] [address] Referral ID Status Reason Start Date Expiration Date Visits Requested Visits Authorized [id number] Authorized PCP Requested Referral Auto-Generate d Referral 04/17/2022 04/17/2023 99 99 Specialty Diagnoses / Procedures Referred By Contac t Referred To Contact Psychology Diagnoses Generalized anxiety disorder Procedures CONSULT TO PSYCHOLOGY OFFICE/OUTPATIENT [facility] 60-74 MINUTES Tamie Kaur MD [address] [phone] Referral ID Status Reason Start Date Expiration Date Visits Requested Visits Authorized [id number] Pending Review PCP Requested Referral 04/17/2022 04/17/2023 1 1 Specialty Diagnoses / Procedures Referred By Contac t Referred To Contact Podiatry Diagnoses Type 2 diabetes mellitus with diabetic neuropathy, with long-term current use of insulin (HCC) Procedures CONSULT TO PODIATRY OFFICE/OUTPATIENT [facility] 60-74 MINUTES PodlogRoselia hernandez APRN.ANATOMIC PATHOLOGIST [address] [place] [address] Referral ID Status Reason Start Date Expiration Date Visits Requested Visits Authorized [id number] Authorized PCP Requested Referral 01/12/2022 01/11/2023 1 1 Specialty Diagnoses / Procedures Referred By Contac t Referred To Contact [facility] Diagnoses Altered mental status, unspecified altered mental status type Procedures CONSULT TO SPEECH THERAPY OFFICE/OUTPATIENT [facility] 60-74 MINUTES Tamie Kaur MD [address] [place] [address] [facility] [address] [address] Referral ID Status Reason Start Date Expiration Date Visits Requested Visits Authorized [id number] Authorized Auto-Generat ed Referral 01/05/2022 01/05/2023 99 99 Specialty Diagnoses / Procedures Referred By Contac t Referred To Contact [facility] Diagnoses Abnormality of gait due to impairment of balance Procedures CONSULT TO PHYSICAL THERAPY PHYSICAL THERAPY EVALUATION HIGH COMPLEX 45 MINS Tamie Kaur MD [address] [place] [address] [facility] [place] [address] Referral ID Status Reason Start Date Expiration Date Visits Requested Visits Authorized [id number] Authorized PCP Requested Referral Auto-Generate d Referral 01/05/2022 01/05/2023 99 99 Specialty Diagnoses / Procedures Referred By Contac t Referred To Contact [facility] Diagnoses Altered mental status, unspecified altered mental status type Procedures EPIL EEG ROUTINE ELECTROENCEPHALOGRAM REC COMA/SLEEP ONLY Tamie Kaur MD [address] [place] [address] [place] [address] Referral ID Status Reason Start Date Expiration Date Visits Requested Visits Authorized [id number] Authorized Auto-Generat ed Referral 01/05/2022 01/05/2023 1 1 Specialty Diagnoses / Procedures Referred By Contac t Referred To Contact Neurology Diagnoses Altered mental status, unspecified altered mental status type Procedures CONSULT TO NEUROLOGY OFFICE/OUTPATIENT [facility] MDM 60-74 MINUTES Abdulaziz Caldera MD [address] [place] [address] Referral ID Status Reason Start Date Expiration Date Visits Requested Visits Authorized [id number] Authorized PCP Requested Referral 01/01/2022 01/01/2023 1 [...] or prosecute any alcohol or drug abuse patient.[facility] the event this information is protected by the Federal Confidentiality of Alcohol and Drug Abuse Patient Records regulations: The Federal rules restrict any use of the information to criminally investigate or prosecute any alcohol or drug abuse patient.[facility] the event this information is protected by the Federal Confidentiality of Alcohol and Drug Abuse Patient Records regulations: The Federal rules restrict any use of the information to criminally investigate or prosecute any alcohol or drug abuse patient.[facility]In the event this information is protected by the Federal Confidentiality of Alcohol and Drug Abuse Patient Records regulations: The Federal rules restrict any use of the information to criminally investigate or prosecute any alcohol or drug abuse patient.[facility]In the event this information is protected by the Federal Confidentiality of Alcohol and Drug Abuse Patient Records regulations: The Federal rules restrict any use of the information to criminally investigate or prosecute any alcohol or drug abuse patient.[facility]In the event this information is protected by the Federal Confidentiality of Alcohol and Drug Abuse Patient Records regulations: The Federal rules restrict any use of the information to criminally investigate or prosecute any alcohol or drug abuse patient.[facility]In the event this information is protected by the Federal Confidentiality of Alcohol and Drug Abuse Patient Records regulations: The Federal rules restrict any use of the information to criminally investigate or prosecute any alcohol or drug abuse patient.[facility]In the event this information is protected by the Federal Confidentiality of Alcohol and Drug Abuse Patient Records regulations: The Federal rules restrict any use of the information to criminally investigate or prosecute any alcohol or drug abuse patient.[facility] HospitalIn the event this information is protected by the Federal Confidentiality of Alcohol and Drug Abuse Patient Records regulations: The Federal rules restrict any use of the information to criminally investigate or prosecute any alcohol or drug abuse patient.[facility] HospitalIn the event this information is protected by the Federal Confidentiality of Alcohol and Drug Abuse Patient Records regulations: The Federal rules restrict any use of the information to criminally investigate or prosecute any alcohol or drug abuse patient.[facility] HospitalIn the event this information is protected by the Federal Confidentiality of Alcohol and Drug Abuse Patient Records regulations: The Federal rules restrict any use of the information to criminally investigate or prosecute any alcohol or drug abuse patient.[facility] HospitalIn the event this information is protected by the Federal Confidentiality of Alcohol and Drug Abuse Patient Records regulations: The Federal rules restrict any use of the information to criminally investigate or prosecute any alcohol or drug abuse patient.[facility] HospitalIn the event this information is protected by the Federal Confidentiality of Alcohol and Drug Abuse Patient Records regulations: The Federal rules restrict any use of the information to criminally investigate or prosecute any alcohol or drug abuse patient.[facility] HospitalIn the event this information is protected by the Federal Confidentiality of Alcohol and Drug Abuse Patient Records regulations: The Federal rules restrict any use of the information to criminally investigate or prosecute any alcohol or drug abuse patient.[facility] HospitalIn the event this information is protected by the Federal Confidentiality of Alcohol and Drug Abuse Patient Records regulations: The Federal rules restrict any use of the information to criminally investigate or prosecute any alcohol or drug abuse patient.[facility] HospitalIn the event this information is protected by the Federal Confidentiality of Alcohol and Drug Abuse Patient Records regulations: The Federal rules restrict any use of the information to criminally investigate or prosecute any alcohol or drug abuse patient.[facility] HospitalIn the event this information is protected by the Federal Confidentiality of Alcohol and Drug Abuse Patient Records regulations: The Federal rules restrict any use of the information to criminally investigate or prosecute any alcohol or drug abuse patient.[facility] HospitalIn the event this information is protected by the Federal Confidentiality of Alcohol and Drug Abuse Patient Records regulations: The Federal rules restrict any use of the information to criminally investigate or prosecute any alcohol or drug abuse patient.[facility] HospitalIn the event this information is protected by the Federal Confidentiality of Alcohol and Drug Abuse Patient Records regulations: The Federal rules restrict any use of the information to criminally investigate or prosecute any alcohol or drug abuse patient.[facility] HospitalIn the event this information is protected by the Federal Confidentiality of Alcohol and Drug Abuse Patient Records regulations: The Federal rules restrict any use of the information to criminally investigate or prosecute any alcohol or drug abuse patient.[facility] HospitalIn the event this information is protected by the Federal Confidentiality of Alcohol and Drug Abuse Patient Records regulations: The Federal rules restrict any use of the information to criminally investigate or prosecute any alcohol or drug abuse patient.[facility] HospitalIn the event this information is protected by the Federal Confidentiality of Alcohol and Drug Abuse Patient Records regulations: The Federal rules restrict any use of the information to criminally investigate or prosecute any alcohol or drug abuse patient.[facility] HospitalIn the event this information is protected by the Federal Confidentiality of Alcohol and Drug Abuse Patient Records regulations: The Federal rules restrict any use of the information to criminally investigate or prosecute any alcohol or drug abuse patient.[facility] HospitalIn the event this information is protected by the Federal Confidentiality of Alcohol and Drug Abuse Patient Records regulations: The Federal rules restrict any use of the information to criminally investigate or prosecute any alcohol or drug abuse patient.[facility] HospitalIn the event this information is protected by the Federal Confidentiality of Alcohol and Drug Abuse Patient Records regulations: The Federal rules restrict any use of the information to criminally investigate or prosecute any alcohol or drug abuse patient.[facility] HospitalIn the event this information is protected by the Federal Confidentiality of Alcohol and Drug Abuse Patient Records regulations: The Federal rules restrict any use of the information to criminally investigate or prosecute any alcohol or drug abuse patient.[facility] HospitalIn the event this information is protected by the Federal Confidentiality of Alcohol and Drug Abuse Patient Records regulations: The Federal rules restrict any use of the information to criminally investigate or prosecute any alcohol or drug abuse patient.[facility] HospitalIn the event this information is protected by the Federal Confidentiality of Alcohol and Drug Abuse Patient Records regulations: The Federal rules restrict any use of the information to criminally investigate or prosecute any alcohol or drug abuse patient.[facility] HospitalIn the event this information is protected by the Federal Confidentiality of Alcohol and Drug Abuse Patient Records regulations: The Federal rules restrict any use of the information to criminally investigate or prosecute any alcohol or drug abuse patient.[facility] HospitalIn the event this information is protected by the Federal Confidentiality of Alcohol and Drug Abuse Patient Records regulations: The Federal rules restrict any use of the information to criminally investigate or prosecute any alcohol or drug abuse patient.[facility] HospitalIn the event this information is protected by the Federal Confidentiality of Alcohol and Drug Abuse Patient Records regulations: The Federal rules restrict any use of the information to criminally investigate or prosecute any alcohol or drug abuse patient.[facility] HospitalIn the event this information is protected by the Federal Confidentiality of Alcohol and Drug Abuse Patient Records regulations: The Federal rules restrict any use of the information to criminally investigate or prosecute any alcohol or drug abuse patient.[facility] HospitalIn the event this information is protected by the Federal Confidentiality of Alcohol and Drug Abuse Patient Records regulations: The Federal rules restrict any use of the information to criminally investigate or prosecute any alcohol or drug abuse patient.[facility] HospitalIn the event this information is protected by the Federal Confidentiality of Alcohol and Drug Abuse Patient Records regulations: The Federal rules restrict any use of the information to criminally investigate or prosecute any alcohol or drug abuse patient.[facility] HospitalIn the event this information is protected by the Federal Confidentiality of Alcohol and Drug Abuse Patient Records regulations: The Federal rules restrict any use of the information to criminally investigate or prosecute any alcohol or drug abuse patient.[facility] HospitalIn the event this information is protected by the Federal Confidentiality of Alcohol and Drug Abuse Patient Records regulations: The Federal rules restrict any use of the information to criminally investigate or prosecute any alcohol or drug abuse patient.[facility] HospitalIn the event this information is protected by the Federal Confidentiality of Alcohol and Drug Abuse Patient Records regulations: The Federal rules restrict any use of the information to criminally investigate or prosecute any alcohol or drug abuse patient.[facility] HospitalIn the event this information is protected by the Federal Confidentiality of Alcohol and Drug Abuse Patient Records regulations: The Federal rules restrict any use of the information to criminally investigate or prosecute any alcohol or drug abuse patient.[facility] HospitalIn the event this information is protected by the Federal Confidentiality of Alcohol and Drug Abuse Patient Records regulations: The Federal rules restrict any use of the information to criminally investigate or prosecute any alcohol or drug abuse patient.[facility] HospitalIn the event this information is protected by the Federal Confidentiality of Alcohol and Drug Abuse Patient Records regulations: The Federal rules restrict any use of the information to criminally investigate or prosecute any alcohol or drug abuse patient.[facility] HospitalIn the event this information is protected by the Federal Confidentiality of Alcohol and Drug Abuse Patient Records regulations: The Federal rules restrict any use of the information to criminally investigate or prosecute any alcohol or drug abuse patient.[facility] HospitalIn the event this information is protected by the Federal Confidentiality of Alcohol and Drug Abuse Patient Records regulations: The Federal rules restrict any use of the information to criminally investigate or prosecute any alcohol or drug abuse patient.[facility] HospitalIn the event this information is protected by the Federal Confidentiality of Alcohol and Drug Abuse Patient Records regulations: The Federal rules restrict any use of the information to criminally investigate or prosecute any alcohol or drug abuse patient.[facility] HospitalIn the event this information is protected by the Federal Confidentiality of Alcohol and Drug Abuse Patient Records regulations: The Federal rules restrict any use of the information to criminally investigate or prosecute any alcohol or drug abuse patient.[facility] HospitalIn the event this information is protected by the Federal Confidentiality of Alcohol and Drug Abuse Patient Records regulations: The Federal rules restrict any use of the information to criminally investigate or prosecute any alcohol or drug abuse patient.[facility] HospitalIn the event this information is protected by the Federal Confidentiality of Alcohol and Drug Abuse Patient Records regulations: The Federal rules restrict any use of the information to criminally investigate or prosecute any alcohol or drug abuse patient.[facility] HospitalIn the event this information is protected by the Federal Confidentiality of Alcohol and Drug Abuse Patient Records regulations: The Federal rules restrict any use of the information to criminally investigate or prosecute any alcohol or drug abuse patient.[facility] HospitalIn the event this information is protected by the Federal Confidentiality of Alcohol and Drug Abuse Patient Records regulations: The Federal rules restrict any use of the information to criminally investigate or prosecute any alcohol or drug abuse patient.[facility] HospitalIn the event this information is protected by the Federal Confidentiality of Alcohol and Drug Abuse Patient Records regulations: The Federal rules restrict any use of the information to criminally investigate or prosecute any alcohol or drug abuse patient.[facility] HospitalIn the event this information is protected by the Federal Confidentiality of Alcohol and Drug Abuse Patient Records regulations: The Federal rules restrict any use of the information to criminally investigate or prosecute any alcohol or drug abuse patient.[facility] HospitalIn the event this information is protected by the Federal Confidentiality of Alcohol and Drug Abuse Patient Records regulations: The Federal rules restrict any use of the information to criminally investigate or prosecute any alcohol or drug abuse patient.[facility] HospitalIn the event this information is protected by the Federal Confidentiality of Alcohol and Drug Abuse Patient Records regulations: The Federal rules restrict any use of the information to criminally investigate or prosecute any alcohol or drug abuse patient.[facility] HospitalIn the event this information is protected by the Federal Confidentiality of Alcohol and Drug Abuse Patient Records regulations: The Federal rules restrict any use of the information to criminally investigate or prosecute any alcohol or drug abuse patient.[facility] HospitalIn the event this information is protected by the Federal Confidentiality of Alcohol and Drug Abuse Patient Records regulations: The Federal rules restrict any use of the information to criminally investigate or prosecute any alcohol or drug abuse patient.[facility] HospitalIn the event this information is protected by the Federal Confidentiality of Alcohol and Drug Abuse Patient Records regulations: The Federal rules restrict any use of the information to criminally investigate or prosecute any alcohol or drug abuse patient.[facility] HospitalIn the event this information is protected by the Federal Confidentiality of Alcohol and Drug Abuse Patient Records regulations: The Federal rules restrict any use of the information to criminally investigate or prosecute any alcohol or drug abuse patient.[facility] HospitalIn the event this information is protected by the Federal Confidentiality of Alcohol and Drug Abuse Patient Records regulations: The Federal rules restrict any use of the information to criminally investigate or prosecute any alcohol or drug abuse patient.[facility] HospitalIn the event this information is protected by the Federal Confidentiality of Alcohol and Drug Abuse Patient Records regulations: The Federal rules restrict any use of the information to criminally investigate or prosecute any alcohol or drug abuse patient.[facility] HospitalIn the event this information is protected by the Federal Confidentiality of Alcohol and Drug Abuse Patient Records regulations: The Federal rules restrict any use of the information to criminally investigate or prosecute any alcohol or drug abuse patient.[facility] HospitalIn the event this information is protected by the Federal Confidentiality of Alcohol and Drug Abuse Patient Records regulations: The Federal rules restrict any use of the information to criminally investigate or prosecute any alcohol or drug abuse patient.[facility] HospitalIn the event this information is protected by the Federal Confidentiality of Alcohol and Drug Abuse Patient Records regulations: The Federal rules restrict any use of the information to criminally investigate or prosecute any alcohol or drug abuse patient.[facility] HospitalIn the event this information is protected by the Federal Confidentiality of Alcohol and Drug Abuse Patient Records regulations: The Federal rules restrict any use of the information to criminally investigate or prosecute any alcohol or drug abuse patient.[facility] HospitalIn the event this information is protected by the Federal Confidentiality of Alcohol and Drug Abuse Patient Records regulations: The Federal rules restrict any use of the information to criminally investigate or prosecute any alcohol or drug abuse patient.[facility] HospitalIn the event this information is protected by the Federal Confidentiality of Alcohol and Drug Abuse Patient Records regulations: The Federal rules restrict any use of the information to criminally investigate or prosecute any alcohol or drug abuse patient.[facility] HospitalIn the event this information is protected by the Federal Confidentiality of Alcohol and Drug Abuse Patient Records regulations: The Federal rules restrict any use of the information to criminally investigate or prosecute any alcohol or drug abuse patient.[facility] HospitalIn the event this information is protected by the Federal Confidentiality of Alcohol and Drug Abuse Patient Records regulations: The Federal rules restrict any use of the information to criminally investigate or prosecute any alcohol or drug abuse patient.[facility] HospitalIn the event this information is protected by the Federal Confidentiality of Alcohol and Drug Abuse Patient Records regulations: The Federal rules restrict any use of the information to criminally investigate or prosecute any alcohol or drug abuse patient.[facility] HospitalIn the event this information is protected by the Federal Confidentiality of Alcohol and Drug Abuse Patient Records regulations: The Federal rules restrict any use of the information to criminally investigate or prosecute any alcohol or drug abuse patient.[facility] HospitalIn the event this information is protected by the Federal Confidentiality of Alcohol and Drug Abuse Patient Records regulations: The Federal rules restrict any use of the information to criminally investigate or prosecute any alcohol or drug abuse patient.[facility] HospitalIn the event this information is protected by the Federal Confidentiality of Alcohol and Drug Abuse Patient Records regulations: The Federal rules restrict any use of the information to criminally investigate or prosecute any alcohol or drug abuse patient.[facility] HospitalIn the event this information is protected by the Federal Confidentiality of Alcohol and Drug Abuse Patient Records regulations: The Federal rules restrict any use of the information to criminally investigate or prosecute any alcohol or drug abuse patient.[facility] HospitalIn the event this information is protected by the Federal Confidentiality of Alcohol and Drug Abuse Patient Records regulations: The Federal rules restrict any use of the information to criminally investigate or prosecute any alcohol or drug abuse patient.[facility] HospitalIn the event this information is protected by the Federal Confidentiality of Alcohol and Drug Abuse Patient Records regulations: The Federal rules restrict any use of the information to criminally investigate or prosecute any alcohol or drug abuse patient.[facility] HospitalIn the event this information is protected by the Federal Confidentiality of Alcohol and Drug Abuse Patient Records regulations: The Federal rules restrict any use of the information to criminally investigate or prosecute any alcohol or drug abuse patient.[facility] HospitalIn the event this information is protected by the Federal Confidentiality of Alcohol and Drug Abuse Patient Records regulations: The Federal rules restrict any use of the information to criminally investigate or prosecute any alcohol or drug abuse patient.[facility] HospitalIn the event this information is protected by the Federal Confidentiality of Alcohol and Drug Abuse Patient Records regulations: The Federal rules restrict any use of the information to criminally investigate or prosecute any alcohol or drug abuse patient.[facility] HospitalIn the event this information is protected by the Federal Confidentiality of Alcohol and Drug Abuse Patient Records regulations: The Federal rules restrict any use of the information to criminally investigate or prosecute any alcohol or drug abuse patient.[facility] HospitalIn the event this information is protected by the Federal Confidentiality of Alcohol and Drug Abuse Patient Records regulations: The Federal rules restrict any use of the information to criminally investigate or prosecute any alcohol or drug abuse patient.[facility] HospitalIn the event this information is protected by the Federal Confidentiality of Alcohol and Drug Abuse Patient Records regulations: The Federal rules restrict any use of the information to criminally investigate or prosecute any alcohol or drug abuse patient.[facility] Reason for Visit (unrecogniz ed section and content) Specialty Diagnoses / Procedures Referred By Linn carrillo Referred To Contact [facility] Diagnoses Abnormality of gait due to impairment of balance Procedures CONSULT TO PHYSICAL THERAPY PHYSICAL THERAPY EVALUATION HIGH COMPLEX 45 MINS Tamie Kaur MD [address] [place] [address] [facility] [address] [address] Referral ID Status Reason Start Date Expiration Date Visits Requested Visits Authorized [id number] Authorized PCP Requested Referral Auto-Generate d Referral [...] 6 mo Reason Comments Hospital Follow Up [facility] discharged Reason Comments Results Reason Comments Consult altered mental statu s Specialty Diagnoses / Procedures Referred By Linn carrillo Referred To Contact Neurology Diagnoses Altered mental status, unspecified altered mental status type Procedures CONSULT TO NEUROLOGY OFFICE/OUTPATIENT [facility] MDM 60-74 MINUTES Adbulaziz Caldera MD [address] [place] [address] Referral ID Status Reason Start Date Expiration Date V isits Requested Visits Authorized [id number] Closed PCP Requested Referral 01/01/2022 01/01/2023 1 [...] Nursing Plan of Care Update Reason Comments [facility] PT POC Reason Comments OT plan of care Reason Onset Date Comments Refill Request 07/25/2022 Reason Comments Home Health-Nursing Update Reason Onset Date Comments Anticoagulation 07/31/2022 Specialty Diagnoses / Procedures Referred By Linn carrillo Referred To Contact Ent - Otolaryngology Diagnoses Chronic frontal sinusitis Procedures CONSULT TO ENT OFFICE/OUTPATIENT NEW HIGH MDM 60-74 MINUTES Abdulaziz Caldera MD [address] [place] [address] Referral ID Status Reason Start Date Expiration Date V isits Requested Visits Authorized [id number] Closed PCP Requested Referral 07/12/2022 07/12/2023 1 [...] Care Teams (unrecognized sec tion and content) Fire Systems Inspector Relationship Specialty Start Date End Date Abdulaziz Caldera MD [address] [place] [address] PCP - General Family Practice 11/23/20 Fire Systems Inspector Relationship Specialty Start Date End Date Abdulaziz Caldera MD [address] [place] [address] PCP - General Family Practice 11/23/20 Fire Systems Inspector Relationship Specialty Start Date End Date Abdulaziz Caldera MD [address] [place] [address] PCP - General Family Practice 11/23/20 Fire Systems Inspector Relationship Specialty Start Date End Date Abdulaziz Caldera MD [address] [place] [address] PCP - General Family Practice 11/23/20 Fire Systems Inspector Relationship Specialty Start Date End Date Abdulaziz Caldera MD [facility] [place] [address] PCP - General Family Practice 11/23/20 Fire Systems Inspector Relationship Specialty Start Date End Date Abdulaziz Caldera MD [address] [place] [address] PCP - General Family Practice 11/23/20 Fire Systems Inspector Relationship Specialty Start Date End Date Abdulaziz Caldera MD [address] [place] [address] PCP - General Family Practice 11/23/20 Fire Systems Inspector Relationship Specialty Start Date End Date Abdulaziz Caldera MD [address] [place] [address] PCP - General Family Practice 11/23/20 Fire Systems Inspector Relationship Specialty Start Date End Date Abdulaziz Caldera MD [address] [place] [address] PCP - General Family Practice 11/23/20 Fire Systems Inspector Relationship Specialty Start Date End Date Abdulaziz Caldera MD [address] [place] [address] PCP - General Family Practice 11/23/20 Fire Systems Inspector Relationship Specialty Start Date End Date Abdulaziz Caldera MD [address] [place] [address] PCP - General Family Practice 11/23/20 Fire Systems Inspector Relationship Specialty Start Date End Date Abdulaziz Caldera MD [address] [place] [address] PCP - General Family Practice 11/23/20 Fire Systems Inspector Relationship Specialty Start Date End Date Abdulaziz Caldera MD [address] [place] [address] PCP - General Family Practice 11/23/20 Fire Systems Inspector Relationship Specialty Start Date End Date Abdulaziz Caldera MD [address] [place] [address] PCP - General Family Practice 11/23/20 Fire Systems Inspector Relationship Specialty Start Date End Date Abdulaziz Caldera MD [address] [place] [address] PCP - General Family Practice 11/23/20 Fire Systems Inspector Relationship Specialty Start Date End Date Abdulaziz Caldera MD [address] [place] [address] PCP - General Family Practice 11/23/20 Fire Systems Inspector Relationship Specialty Start Date End Date Abdulaziz Caldera MD [address] [place] [address] PCP - General Family Practice 11/23/20 Fire Systems Inspector Relationship Specialty Start Date End Date Abdulaziz Caldera MD [address] [place] [address] PCP - General Family Practice 11/23/20 Fire Systems Inspector Relationship Specialty Start Date End Date Abdulaziz Caldera MD [address] [place] [address] PCP - General Family Practice 11/23/20 Fire Systems Inspector Relationship Specialty Start Date End Date Abdulaziz Caldera MD [address] [place] [address] PCP - General Family Practice 11/23/20 Fire Systems Inspector Relationship Specialty Start Date End Date Abdulaziz Caldera MD [address] [place] [address] PCP - General Family Practice 11/23/20 Fire Systems Inspector Relationship Specialty Start Date End Date Abdulaziz Caldera MD [address] [place] [address] PCP - General Family Medicine 11/23/20 Fire Systems Inspector Relationship Specialty Start Date End Date Abdulaziz Caldera MD [address] [place] [address] PCP - General Family Medicine 11/23/20 Fire Systems Inspector Relationship Specialty Start Date End Date Abdulaziz Caldera MD [address] [place] [address] PCP - General Family Medicine 11/23/20 Fire Systems Inspector Relationship Specialty Start Date End Date Abdulaziz Caldera MD [address] [place] [address] PCP - General Family Medicine 11/23/20 Fire Systems Inspector Relationship Specialty Start Date End Date Abdulaziz Caldera MD [address] [place] [address] PCP - General Family Medicine 11/23/20 Fire Systems Inspector Relationship Specialty Start Date End Date Abdulaziz Caldera MD [address] [place] [address] PCP - General Family Medicine 11/23/20 Fire Systems Inspector Relationship Specialty Start Date End Date Abdulaziz Caldera MD [address] [place] [address] PCP - General Family Medicine 11/23/20 Fire Systems Inspector Relationship Specialty Start Date End Date Abdulaziz Caldera MD [address] [place] [address] PCP - General Family Medicine 11/23/20 Fire Systems Inspector Relationship Specialty Start Date End Date Abdulaziz Caldera MD [address] [place] [address] PCP - General Family Medicine 11/23/20 Fire Systems Inspector Relationship Specialty Start Date End Date Abdulaziz Caldera MD [address] [place] [address] PCP - General Family Medicine 11/23/20 Fire Systems Inspector Relationship Specialty Start Date End Date Abdulaziz Caldera MD [address] [place] [address] PCP - General Family Medicine 11/23/20 Fire Systems Inspector Relationship Specialty Start Date End Date Abdulaziz Caldera MD [address] [facility] [place] [address] PCP - General Family Medicine 11/23/20 Fire Systems Inspector Relationship Specialty Start Date End Date Abdulaziz Caldera MD [address] [facility] [place] [address] PCP - General Family Medicine 11/23/20 Fire Systems Inspector Relationship Specialty Start Date End Date Abdulaziz Caldera MD [address] [facility] [place] [address] PCP - General Family Medicine 11/23/20 Fire Systems Inspector Relationship Specialty Start Date End Date Abdulaziz Caldera MD [address] [place] [address] PCP - General Family Medicine 11/23/20 Fire Systems Inspector Relationship Specialty Start Date End Date Abdulaziz Caldera MD [address] [place] [address] PCP - General Family Medicine 11/23/20 Fire Systems Inspector Relationship Specialty Start Date End Date Abdulaziz Caldera MD [address] [place] [address] PCP - General Family Medicine 11/23/20 Fire Systems Inspector Relationship Specialty Start Date End Date Abdulaziz Caldrea MD [address] [place] [address] PCP - General Family Medicine 11/23/20 Fire Systems Inspector Relationship Specialty Start Date End Date Abdulaziz Caldera MD [address] [place] [address] PCP - General Family Medicine 11/23/20 Fire Systems Inspector Relationship Specialty Start Date End Date Abdulaziz Caldera MD [address] [place] [address] PCP - General Family Medicine 11/23/20 Fire Systems Inspector Relationship Specialty Start Date End Date Abdulaziz Caldera MD [address] [place] [address] PCP - General Family Medicine 11/23/20 (unrecognized sect ion and content) No Status Records FoundNo Status Records FoundNo Status Records FoundNo Status Records Found INFORMATION SOURCE (unrecogn ized section and content) DATE CREATED AUTHOR AUTHOR'S ORGANIZ ATION 02/04/2022 [facility] DATE CREATED AUTHOR AUTHOR'S ORGANIZ ATION 04/19/2022 [facility] ([place]) DATE CREATED AUTHOR AUTHOR'S DESTINY ATION 05/30/2023 [facility] FOR RECORDS PERTAINING TO PATIENTS WHO [...] BE BASED ON THE PRIMARY CLINICAL RECORDS. [facility] [employer] [facility]. provides no warranty or guarantee of the accuracy or completeness of information in this document.
[2023-07-29 07:31] LABS: INR Fingerstick 2.3
== END ==
LOC: OLS.ACH 05:00
PROVIDERS: PCP Family Medicine; Visit Provider Internal Medicine
DX: Z79.01 Long term (current) use of anticoagulants (principal)
CPT/HCPCS: 36416; 85610

== ENCOUNTER → 2023-08-05 | Outpatient (REF) | payer MEDICARE, OTHER, SELFPAY ==
--- OUTSIDE RECORDS SUMMARY | 2023-08-05 04:46 | XMS RPT_ITS | CCD ---
Author Name Unknown Address [address] [place] [address] Organization [facility] Care Team Providers Care Laminating Press Operator Name Role Phone Abdulaziz Caldera MD Primary [...] le MOISÉS, TAMIE Y Referring Unavailable ABDULAZIZ CADLERA Primary Care Unavailab le MOISÉS, TAMIE Y [...] pantoprazole; Translations: [PANTOPRAZOLE] Drug Allergy 03-12-2020 Diarrhea [facility] Medications Current Medications Medication Drug Class(es) [...] Coronary atherosclerosis; Translations: [Atherosclerotic heart disease of [place] coronary artery without angina pectoris] Chronic [...] sources) Long-term current use of anticoagulant; Translations: [client liaison (current) use of anticoagulants] Onset: 05-07-2018 11-06-2018 Episodic Other aftercare (1 source) client liaison (current) use of anticoagulants; Translations: [Chronic anticoagulation] Onset: 11-06-2018 Episodic Other aftercare (1 source) nursing home (current) use of insulin; Translations: [Type 2 [...] 185.4 cm Tamie Kaur MD Work Phone: [facility] 09-07-2022 11:01-0500 Body weight 113.4 kg Tamie Kaur MD Work Phone: [facility] 09-07-2022 11:01-0500 Diastolic blood pressure 57 mm[Hg] Tamie Kaur MD Work Phone: [facility] 09-07-2022 11:01-0500 Heart rate 64 /min Tamie Kaur MD Work Phone: [facility] 09-07-2022 11:01-0500 Respiratory rate 16 /min Tamie Kaur MD Work Phone: [facility] 09-07-2022 11:01-0500 SaO2% (BldA) [Mass fraction] 99 % Tamie Kaur MD Work Phone: [facility] 09-07-2022 11:01-0500 Systolic blood pressure 124 mm[Hg] Tamie Kaur MD Work Phone: [facility] 08-09-2022 16:35-0500 Body weight 113.4 kg Abdulaziz Caldera MD Work Phone: [facility] 08-09-2022 16:35-0500 Diastolic blood pressure 62 mm[Hg] Abdulaziz Caldera MD Work Phone: [facility] 08-09-2022 16:35-0500 Heart rate 64 /min Abdulaziz Caldera MD Work Phone: [facility] 08-09-2022 16:35-0500 Respiratory rate 16 /min Abdulaziz Caldera MD Work Phone: [facility] 08-09-2022 16:35-0500 SaO2% (BldA) [Mass fraction] 96 % Abdulaziz Caldera MD Work Phone: [facility] 08-09-2022 16:35-0500 Systolic blood pressure 112 mm[Hg] Abdulaziz Caldera MD Work Phone: [facility] 04-17-2022 11:23-0400 Body height 185.4 cm Tamie Kaur MD Work Phone: [facility] 04-17-2022 11:23-0400 Body weight 114.31 kg Tamie Kaur MD Work Phone: [facility] 04-17-2022 11:23-0400 Diastolic blood pressure 71 mm[Hg] Tamie Kaur MD Work Phone: [facility] 04-17-2022 11:23-0400 Heart rate 72 /min Tamie Kaur MD Work Phone: [facility] 04-17-2022 11:23-0400 Respiratory rate 18 /min Tamie Kaur MD Work Phone: [facility] 04-17-2022 11:23-0400 SaO2% (BldA) [Mass fraction] 98 % Tamie Kaur MD Work Phone: [facility] 04-17-2022 11:23-0400 Systolic blood pressure 116 mm[Hg] Tamie Kaur MD Work Phone: [facility] 04-16-2022 13:09-0400 Body height 185.4 cm Abdulaziz Caldera MD Work Phone: [facility] 04-16-2022 13:09-0400 Body weight 114.31 kg Abdulaziz Caldera MD Work Phone: [facility] 04-16-2022 13:09-0400 Diastolic blood pressure 72 mm[Hg] Abdulaziz Caldera MD Work Phone: [facility] 04-16-2022 13:09-0400 Heart rate 70 /min Abdulaziz Caldera MD Work Phone: [facility] 04-16-2022 13:09-0400 Respiratory rate 16 /min Abdulaziz Caldera MD Work Phone: [facility] 04-16-2022 13:09-0400 SaO2% (BldA) [Mass fraction] 98 % Abdulaziz Caldera MD Work Phone: [facility] 04-16-2022 13:09-0400 Systolic blood pressure 132 mm[Hg] Abdulaziz Caldera MD Work Phone: [facility] 04-06-2022 09:36-0400 Body weight 114.31 kg Roselia Madrigal INSTRUCTOR WARPER.NETWORK OPERATIONS PROJECT MANAGER Work Phone: [facility] 04-06-2022 09:36-0400 Diastolic blood pressure 62 mm[Hg] Roselia Podlogar INSTRUCTOR WARPER.NETWORK OPERATIONS PROJECT MANAGER Work Phone: [facility] 04-06-2022 09:36-0400 Heart rate 62 /min Roselia Podlogar INSTRUCTOR WARPER.NETWORK OPERATIONS PROJECT MANAGER Work Phone: [facility] 04-06-2022 09:36-0400 Respiratory rate 16 /min Roselia Podlogar INSTRUCTOR WARPER.NETWORK OPERATIONS PROJECT MANAGER Work Phone: [facility] 04-06-2022 09:36-0400 SaO2% (BldA) [Mass fraction] 97 % Roselia Podlogar INSTRUCTOR WARPER.NETWORK OPERATIONS PROJECT MANAGER Work Phone: [facility] 04-06-2022 09:36-0400 Systolic blood pressure 112 mm[Hg] Roselia Podlogar INSTRUCTOR WARPER.NETWORK OPERATIONS PROJECT MANAGER Work Phone: [facility] 03-07-2022 11:12-0400 Body weight 114.76 kg Abdulaziz Caldera MD Work Phone: [facility] 03-07-2022 11:12-0400 Diastolic blood pressure 70 mm[Hg] Abdulaziz Caldera MD Work Phone: [facility] 03-07-2022 11:12-0400 Heart rate 64 /min Abdulaziz Caldera MD Work Phone: [facility] 03-07-2022 11:12-0400 Respiratory rate 16 /min Abdulaziz Caldera MD Work Phone: [facility] 03-07-2022 11:12-0400 Systolic blood pressure 118 mm[Hg] Abdulaziz Caldera MD Work Phone: [facility] 03-05-2022 12:00-0400 Diastolic blood pressure 60 mm[Hg] Rosa Elena Lemon PT [facility] 03-05-2022 12:00-0400 Systolic blood pressure 112 mm[Hg] Rosa Elena Lemon PT [facility] 01-12-2022 08:00-0400 Diastolic blood pressure 78 mm[Hg] Rosa Elena Lemon PT [facility] 01-12-2022 08:00-0400 Systolic blood pressure 130 mm[Hg] Rosa Elena Lemon PT [facility] 01-05-2022 09:56-0400 Body height 185.4 cm Tamie Kaur MD Work Phone: [facility] 01-05-2022 09:56-0400 Body weight 111.58 kg Tamie Kaur MD Work Phone: [facility] 01-05-2022 09:56-0400 Diastolic blood pressure 62 mm[Hg] Tamie Kaur MD Work Phone: [facility] 01-05-2022 09:56-0400 Heart rate 58 /min Tamie Kaur MD Work Phone: [facility] 01-05-2022 09:56-0400 Respiratory rate 16 /min Tamie Kaur MD Work Phone: [facility] 01-05-2022 09:56-0400 SaO2% (BldA) [Mass fraction] 97 % Tamie Kaur MD Work Phone: [facility] 01-05-2022 09:56-0400 Systolic blood pressure 117 mm[Hg] Tamie Kaur MD Work Phone: [facility] 01-01-2022 10:12-0400 Body temperature 97.39 [degF] Abdulaziz Caldera MD Work Phone: [facility] 01-01-2022 10:12-0400 Body weight 111.77 kg Abdulaziz Caldera MD Work Phone: [facility] 01-01-2022 10:12-0400 Diastolic blood pressure 64 mm[Hg] Abdulaziz Caldera MD Work Phone: [facility] 01-01-2022 10:12-0400 Heart rate 47 /min Abdulaziz Caldera MD Work Phone: [facility] 01-01-2022 10:12-0400 Respiratory rate 18 /min Abdulaziz Caldera MD Work Phone: [facility] 01-01-2022 10:12-0400 SaO2% (BldA) [Mass fraction] 98 % Abdulaziz Caldera MD Work Phone: [facility] 01-01-2022 10:12-0400 Systolic blood pressure 112 mm[Hg] Abdulaziz Caldera MD Work Phone: [facility] 01-01-2022 08:55-0400 Body weight 112.49 kg Justina Leonie INSTRUCTOR WARPER.NETWORK OPERATIONS PROJECT MANAGER Work Phone: [facility] 01-01-2022 08:55-0400 Diastolic blood pressure 74 mm[Hg] Justina Leonie INSTRUCTOR WARPER.NETWORK OPERATIONS PROJECT MANAGER Work Phone: [facility] 01-01-2022 08:55-0400 Heart rate 60 /min Justina Leonie INSTRUCTOR WARPER.NETWORK OPERATIONS PROJECT MANAGER Work Phone: [facility] 01-01-2022 08:55-0400 Respiratory rate 18 /min Justina Leonie INSTRUCTOR WARPER.NETWORK OPERATIONS PROJECT MANAGER Work Phone: [facility] 01-01-2022 08:55-0400 Systolic blood pressure 147 mm[Hg] Justina Leonie INSTRUCTOR WARPER.NETWORK OPERATIONS PROJECT MANAGER Work Phone: [facility] 12-27-2021 21:22-0400 Diastolic blood pressure 71 mm[Hg] DR MELANIA WORKMAN MD [facility] 12-27-2021 21:22-0400 Heart rate 73 /min DR MELANIA WORKMAN MD [facility] 12-27-2021 21:22-0400 Respiratory rate 24 /min DR MELANIA WORKMAN MD [facility] 12-27-2021 21:22-0400 Systolic blood pressure 121 mm[Hg] DR MELANIA WORKMAN MD [facility] 12-27-2021 20:06-0400 Diastolic blood pressure 59 mm[Hg] DR MELANIA WORKMAN MD [facility] 12-27-2021 20:06-0400 Heart rate 80 /min DR MELANIA WORKMAN MD [facility] 12-27-2021 20:06-0400 Respiratory rate 26 /min DR MELANIA WORKMAN MD [facility] 12-27-2021 20:06-0400 Systolic blood pressure 112 mm[Hg] DR MELANIA WORKMAN MD [facility] 12-27-2021 19:19-0400 Body temperature 98.6 [degF] DR MELANIA WORKMAN MD [facility] 12-27-2021 19:19-0400 Diastolic blood pressure 76 mm[Hg] DR MELANIA WORKMAN MD [facility] 12-27-2021 19:19-0400 Heart rate 82 /min DR MELANIA WORKMAN MD [facility] 12-27-2021 19:19-0400 Respiratory rate 26 /min DR MELANIA WORKMAN MD [facility] 12-27-2021 19:19-0400 Systolic blood pressure 138 mm[Hg] DR MELANIA WORKMAN MD [facility] 12-27-2021 17:36-0400 Body temperature 102.56 [degF] DR MELANIA WORKMAN MD [facility] 12-27-2021 17:36-0400 Body weight [address] MELANIA WORKMAN MD [facility] 12-27-2021 17:36-0400 Heart rate 104 /min DR MELANIA WORKMAN MD [facility] 12-14-2021 15:10-0400 Body temperature 98.2 [degF] Abdulaziz Caldera MD Work Phone: [facility] 12-14-2021 15:10-0400 Body weight 110.77 kg Adbulaziz Caldera MD Work Phone: [facility] 12-14-2021 15:10-0400 Diastolic blood pressure 70 mm[Hg] Abdulaziz Caldera MD Work Phone: [facility] 12-14-2021 15:10-0400 Heart rate 54 /min Abdulaziz Caldera MD Work Phone: [facility] 12-14-2021 15:10-0400 Respiratory rate 16 /min Abdulaziz Caldera MD Work Phone: [facility] 12-14-2021 15:10-0400 SaO2% (BldA) [Mass fraction] 96 % Abdulaziz Caldera MD Work Phone: [facility] 12-14-2021 15:10-0400 Systolic blood pressure 130 mm[Hg] Abdulaziz Caldera MD Work Phone: [facility] 12-08-2021 16:23-0400 Diastolic blood pressure 64 mm[Hg] Abdulaziz Caldera MD Work Phone: [facility] 12-08-2021 16:23-0400 Heart rate 85 /min Abdulaziz Caldera MD Work Phone: [facility] 12-08-2021 16:23-0400 Systolic blood pressure 110 mm[Hg] Abdulaziz Caldera MD Work Phone: [facility] 10-23-2021 13:05-0400 Body temperature 97.3 [degF] Marcella Xavier PA-C Work Phone: [facility] 10-23-2021 13:05-0400 Body weight 114.58 kg Marcella Xavier PA-C Work Phone: [facility] 10-23-2021 13:05-0400 Diastolic blood pressure 56 mm[Hg] Marcella Xavier PA-C Work Phone: [facility] 10-23-2021 13:05-0400 Heart rate 85 /min Marcella [place] PA-C Work Phone: [facility] 10-23-2021 13:05-0400 SaO2% (BldA) [Mass fraction] 98 % Marcella [place] PA-C Work Phone: [facility] 10-23-2021 13:05-0400 Systolic blood pressure 132 mm[Hg] Marcella [place] PA-C Work Phone: [facility] 10-10-2021 10:07-0400 Diastolic blood pressure 68 mm[Hg] Richard Jones MD Work Phone: [facility] 10-10-2021 10:07-0400 Heart rate 69 /min Richard Jones MD Work Phone: [facility] 10-10-2021 10:07-0400 Respiratory rate 16 /min Richard Jones MD Work Phone: [facility] 10-10-2021 10:07-0400 SaO2% (BldA) [Mass fraction] 98 % Richard Jones MD Work Phone: [facility] 10-10-2021 10:07-0400 Systolic blood pressure 150 mm[Hg] Richard Jones MD Work Phone: [facility] 10-10-2021 08:01-0400 Body temperature 97 [degF] Richard Jones MD Work Phone: [facility] Encounters Encounter Date Encounter Type Care Provider Facility Start: 01-28-2023 Telephone encounter Luis Caldera MD Work Phone: [facility] [place] Procedures Date Procedure Procedure Detail Performing Clinician Start: 04-06-2022 INFLUENZA SEASONAL QUADRIVALENT HIGH DOSE AGE 65+ Roselia Podlogar INSTRUCTOR WARPER.NETWORK OPERATIONS PROJECT MANAGER Work Phone: Start: 04-06-2022 PFIZER-BIONTECH COVI D-19 BIVALENT BOOSTER VACCINE, AGE 12+ YR Roselia Podlogar INSTRUCTOR WARPER.NETWORK OPERATIONS PROJECT MANAGER Work Phone: Start: 04-06-2022 Adult depression scr eening assessment Roselia Podlogar INSTRUCTOR WARPER.NETWORK OPERATIONS PROJECT MANAGER Work Phone: Start: 03-07-2022 PROTHROMBIN TIME/PT Chr mine Caldera MD Work Phone: Start: 03-07-2022 Adult depression scr eening assessment Abdulaziz Caldera MD Work Phone: Start: 01-09-2022 Echo tthrc r-t 2d w/wom-mode compl spec&colr d Justina E Leonie INSTRUCTOR WARPER.NETWORK OPERATIONS PROJECT MANAGER Work Phone: Start: 01-01-2022 Urnls dip stick/tabl [...] Activity Detail Author Start: 10-11-2031 Colonoscopy COLONOSCOPY [facility] Start: 10-11-2031 COLORECTAL CANCER SCREENING COLORECTAL CANCER SCREENING [facility] Start: 10-10-2024 Colonoscopy COLONOSCOPY [facility] Start: 10-10-2024 COLORECTAL CANCER SCREENING COLORECTAL CANCER SCREENING [facility] Start: 01-05-2024 ANNUAL PCP TEAM CHRONIC DISEASE VISIT ANNUAL PCP TEAM CHRONIC DISEASE VISIT [facility] Start: 01-05-2024 BP CONTROLLED (<130/80) BP CONTROLLED (<130/80) [facility] Start: 12-04-2023 BP CONTROLLED (<130/80) BP CONTROLLED (<130/80) [facility] Start: 11-20-2023 ANNUAL PCP TEAM CHRONIC DISEASE VISIT ANNUAL PCP TEAM CHRONIC DISEASE VISIT [facility] Start: 11-20-2023 BP CONTROLLED (<130/80) BP CONTROLLED (<130/80) [facility] Start: 09-07-2023 BP CONTROLLED (<130/80) BP CONTROLLED (<130/80) [facility] Start: 08-13-2023 HEMOGLOBIN/HEMATOCRIT HEMOGLOBIN/HEMATOCRIT [facility] Start: 08-13-2023 SERUM CREATININE SERUM CREATININE [facility] Start: 08-09-2023 ANNUAL PCP TEAM CHRONIC DISEASE VISIT ANNUAL PCP TEAM CHRONIC DISEASE VISIT [facility] Start: 08-09-2023 BP CONTROLLED (<130/80) BP CONTROLLED (<130/80) [facility] Start: 07-12-2023 ANNUAL PCP TEAM CHRONIC DISEASE VISIT ANNUAL PCP TEAM CHRONIC DISEASE VISIT [facility] Start: 07-12-2023 BP CONTROLLED (<130/80) BP CONTROLLED (<130/80) [facility] Start: 04-17-2023 BP CONTROLLED (<130/80) BP CONTROLLED (<130/80) [facility] Start: 04-16-2023 ANNUAL PCP TEAM CHRONIC DISEASE VISIT ANNUAL PCP TEAM CHRONIC DISEASE VISIT [facility] Start: 04-06-2023 Adult depression screening assessment DEPRESSION SCREENING [facility] Start: 04-06-2023 ANNUAL PCP TEAM CHRONIC DISEASE VISIT ANNUAL PCP TEAM CHRONIC DISEASE VISIT [facility] Start: 04-06-2023 BP CONTROLLED (<130/80) BP CONTROLLED (<130/80) [facility] Start: 03-30-2023 3 comp foot exam completed DIABETIC FOOT EXAM [facility] Start: 03-15-2023 Influenza vaccination INFLUENZA (#1) [facility] Start: 03-07-2023 Adult depression screening assessment DEPRESSION SCREENING [facility] Start: 03-07-2023 ANNUAL PCP TEAM CHRONIC DISEASE VISIT ANNUAL PCP TEAM CHRONIC DISEASE VISIT [facility] Start: 03-07-2023 BP CONTROLLED (<130/80) BP CONTROLLED (<130/80) [facility] Start: 03-07-2023 SERUM CREATININE SERUM CREATININE [facility] Start: 03-05-2023 BP CONTROLLED (<130/80) BP CONTROLLED (<130/80) [facility] Start: 03-02-2023 Hepatitis B screening URINE ALBUMIN:CREATININE RATIO [facility] Start: 02-10-2023 Hemoglobin A1c/Hemoglobin.total in Blood HBA1C [facility] Start: 01-05-2023 BP CONTROLLED (<130/80) BP CONTROLLED (<130/80) [facility] Start: 01-01-2023 ANNUAL PCP TEAM CHRONIC DISEASE VISIT ANNUAL PCP TEAM CHRONIC DISEASE VISIT [facility] Start: 01-01-2023 BP CONTROLLED (<130/80) BP CONTROLLED (<130/80) [facility] Start: 01-01-2023 Hepatitis B surface antibody level LDL CHOLESTEROL [facility] Start: 01-01-2023 SERUM CREATININE SERUM CREATININE [facility] Start: 12-14-2022 ANNUAL PCP TEAM CHRONIC DISEASE VISIT ANNUAL PCP TEAM CHRONIC DISEASE VISIT [facility] Start: 12-08-2022 ANNUAL PCP TEAM CHRONIC DISEASE VISIT ANNUAL PCP TEAM CHRONIC DISEASE VISIT [facility] Start: 12-08-2022 BP CONTROLLED (<130/80) BP CONTROLLED (<130/80) [facility] Start: 09-06-2022 ANNUAL PCP TEAM CHRONIC DISEASE VISIT ANNUAL PCP TEAM CHRONIC DISEASE VISIT [facility] Start: 09-02-2022 Hemoglobin A1c/Hemoglobin.total in Blood HBA1C [facility] Start: 08-30-2022 SERUM CREATININE SERUM CREATININE [facility] Start: 08-09-2022 End: 10-09-2022 CBC W Auto Differential panel - Blood CBC + DIFF Lab Routine Type 2 diabetes mellitus with diabetic neuropathy, with long-term current use of insulin (HCC) Expected: 08/09/2022, Expires: 10/09/2022 [facility] Work Phone: Immunizations Immunization Date Immunization Notes Care Provider Fa cili 04-06-2022 COVID-19 booster vaccine, age 12+ yr, bivalent (PFIZER-BIONTECH) Roselia Podlogdavid INSTRUCTOR WARPER.NETWORK OPERATIONS PROJECT MANAGER Work Phone: [facility] 04-06-2022 influenza, high-dose , quadrivalent vaccine (FLUZONE HIGH DOSE QUADRIVALENT) Roselia Raglandlogdavid INSTRUCTOR WARPER.NETWORK OPERATIONS PROJECT MANAGER Work Phone: [facility] 06-14-2021 influenza, high-dose , quadrivalent vaccine (FLUZONE HIGH DOSE QUADRIVALENT) Abdulaziz Caldera MD Work Phone: [facility] Work Phone: 02-24-2021 zoster vaccine recombinant Abdulaziz Caldera MD Work Phone: [facility] 09-30-2020 COVID-19 vaccine, ag e 12+ yr (PFIZER-BIONTECH - PURPLE TOP) Abdulaziz Caldera MD Work Phone: [facility] 09-09-2020 COVID-19 vaccine, ag e 12+ yr (PFIZER-BIONTECH - PURPLE TOP) Abdulaziz Caldera MD Work Phone: [facility] 04-16-2020 influenza, high-dose , quadrivalent vaccine (FLUZONE HIGH DOSE QUADRIVALENT) Abdulaziz Caldera MD Work Phone: [facility] 03-14-2020 zoster vaccine recombinant Abdulaziz Caldera MD Work Phone: [facility] Work Phone: 04-02-2019 influenza, high dose seasonal, preservative-free Abdulaziz Caldera MD Work Phone: [facility] Work Phone: 04-15-2018 influenza, high dose seasonal, preservative-free Abdulaziz Caldera MD Work Phone: [facility] 06-13-2017 influenza, high dose seasonal, preservative-free Abdulaziz Caldera MD Work Phone: [facility] 06-20-2016 influenza, high dose seasonal, preservative-free Abdulaziz Caldera MD Work Phone: [facility] 11-24-2015 pneumococcal polysaccharide vaccine, 23 valent Abdulaziz Caldera MD Work Phone: [facility] 05-16-2015 influenza, high dose seasonal, preservative-free Abdulaziz Caldera MD Work Phone: [facility] 10-27-2014 pneumococcal conjuga te vaccine, 13 valent Abdulaziz Caldera MD Work Phone: [facility] 10-27-2014 zoster vaccine, live Socrates Caldera MD Work Phone: [facility] 06-11-2011 influenza virus vaccine, unspecified formulation Abdulaziz Caldera MD Work Phone: [facility] 12-25-2010 tetanus toxoid, redu veronika diphtheria toxoid, and acellular pertussis vaccine, adsorbed Abdulaziz Caldera MD Work Phone: [facility] 04-25-2009 pneumococcal polysaccharide vaccine, 23 valent Abdulaziz Caldera MD Work Phone: [facility] 03-21-2000 diphtheria and tetan us toxoids, adsorbed for pediatric use Abdulaziz Caldera MD Work Phone: [facility] Work Phone: 02-11-1961 poliovirus vaccine, inactivated Abdulaziz Caldera MD Work Phone: [facility] Work Phone: 03-25-1959 poliovirus vaccine, inactivated Abdulaziz Caldera MD Work Phone: [facility] Work Phone: 10-16-1956 poliovirus vaccine, inactivated Abdulaziz Caldera MD Work Phone: [facility] Work Phone: 01-12-1956 poliovirus vaccine, inactivated Abdulaziz Caldera MD Work Phone: [facility] Work Phone: 12-03-1955 poliovirus vaccine, inactivated Abdulaziz Caldera MD Work Phone: [facility] Work Phone: Payers Date Payer Category Payer Unknown HOSPITAL/MEDICAL GENERIC MEDICAL GENERIC [id number] 2012-Present [phone] [address] [place] [address] Indemnity [id number] 2012 Unknown HOSPITAL/MEDICAL GENERIC MEDICAL GENERIC [id number] 2012-Present [phone] [address] [place] [address] Indemnity [id number] 2012 Unknown [id number] 2012 Medicare MEDICARE MEDICAR E A AND B [id number] 2012-Present [phone] [place] [address] Medicare [id number] 2012 Medicare MEDICARE MEDICAR E A AND B [id number] 2012-Present [phone] [place] [address] Medicare [id number] 2012 Medicare [id number] 1945 Unknown [id number] Social History Date Type Detail Facility Start: 11-23-2020 End: 04-06-2022 Tobacco smoking status NHIS Never smoked tobacco [facility] Start: 09-06-2021 End: 12-03-2022 Alcohol intake Current non-drinker of alcohol (finding) [facility] Start: 1945 Sex Assigned At Not on file [facility] Start: 08-07-2021 End: 04-17-2022 Exposure to SARS-CoV-2 (event) Not sure [facility] Tobacco smoking status No Smokin g Status Entered [facility] Sex Assigned At Male [facility] Start: 01-02-2022 End: 01-12-2022 Exposure to SARS-CoV-2 (event) Unable to assess [facility] Work Phone: Start: 11-23-2020 End: 04-06-2022 Tobacco use and exposure Smokeless tobacco non-user [facility] Work Phone: Start: 11-19-2022 End: 12-03-2022 History of Social function [facility] Work Phone: Start: 11-19-2022 End: 12-03-2022 Tobacco use panel [facility] Work Phone: Adult Depression Screening Assessment 2 [facility] Work Phone: Medical Equipment Procedure Code [...] Note Patient Outreach (EVELYN ROGERS) RICHARD ROY ([id number]) 1945 M Date Time Provider Department 05/28/23 GUDELIA HUITRON During your visit today, we recorded the following information about you: Gudelia Huitron MA 05/28/2023 12:44 PM Signed POPULATION HEALTH NAVIGATION OUTREACH Action/FYI NO ANSWER MissingamesHART MESSAGE SENT ANNUAL MEDICARE WELLNESS Advance Directive Discussion Never done HbA1C due on 02/10/2023 Influenza Vaccine(1) due on 03/15/2023 Patient Identified by Name and : NO Outreach Outcome/Action Unable to reach patient: Phone number not valid / voicemail full Geeklistt message sent Did you use a PCP [...] time a week. - blood sugar diagnostic ([employer] ULTRA TEST) test strip Test blood sugar(s) [...] due to im (more content not included)... [facility] 05-28-2023 Note HNO ID: [id number] Author: Gudelia Huitron MA Service: ? Author Type: Parish Visitor Type: Progress Notes Filed: 05/28/2023 12:44 PM Note Text: POPULATION HEALTH NAVIGATION OUTREACH Action/I NO ANSWER MissingamesHART MESSAGE SENT ANNUAL MEDICARE WELLNESS Advance Directive Discussion Never done HbA1C due on 02/10/2023 Influenza Vaccine(1) due on 03/15/2023 Patient Identified by Name and : NO Outreach Outcome/Action Unable to reach patient: Phone number not valid / voicemail full Rainbowhart message sent Did you use a PCP [...] Huitron MA May 28, 2023 7:41 AM [facility] 02-12-2023 Note Patient Outreach (IN [facility]) RICHARD ROY ([id number]) 1945 M Date Time Provider Department 02/12/23 ABDULAZIZ CALDERA During your visit today, we recorded the following information about you: Allergies As of Date: 02/12/2023 Noted Allergy Reaction PANTOPRAZOLE 09/24/2019 6 - Diarrhea Date Reviewed: 01/04/2023 Reviewed by: Tamika Grijalva LPN - Fully Assessed Visit Diagnosis:Diabetic retinopathy of right eye (HCC) [E11.319] Order(s):HGB A1C [[id number]] Order #: [id number] FUTURE Prescriptions as of 02/15/2023 - metFORMIN [...] Encounter Status:Closed by SOLA RANDLE on 02/15/23 [facility] 01-28-2023 Miscellaneous Notes Miya with [facility] calls to report pt was admitted to their facility over the weekend. Miya is requesting immunization record be faxed to: [phone]. Immunization record faxed as requested. Tania Heller LPN documented in this encounter [facility] 01-24-2023 Miscellaneous Notes Phoned patient's and [...] Patient's calling to say patient was at [facility] for rehabilitation after his hospitalization @ [facility] for confusion on 01/04. He was sent by squad to [facility] from [facility] on 01/21 due to episode of decreased [...] it won't be [facility]. Vannessa Jorge, JACEY documented in this encounter [facility] 01-04-2023 Note HNO ID: [id number] Author: Abdulaziz Caldera MD Service: ? Author [...] Benign-Dr. 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 ([facility]) 05/25/2018 History of transfusion Hyperlipidemia LDL goal < 100 04/01/2012 NSTEMI (non-ST elevated myocardial infarction) ([facility]) Pulmonary embolus, right ([facility]) 09/25/2013 Status post aortic valve repair 2005 Thoracic aneurysm without mention of rupture Type 2 diabetes mellitus with stage 3 chronic kidney disease, with long-term current use of insulin ([facility]) 06/20/2016 Vitamin D deficiency 01/03/2022 Previous Surgical History PAST SURGICAL HISTORY Procedure Laterality Date ABDOMINAL SURGERY HX AMPUTATION METATARSAL+TOE,SINGLE Right 05/25/2018 with delayed closure on 05/28/18. Dr. Obregon at [facility] COLONOSCOPY 10/10/2021 repeat in 3 years COLONOSCOPY [...] Yes Current Facility-Administ (more content not included)... [facility] 01-04-2023 Miscellaneous Notes Pt was seen in [...] recommend ER evaluation. documented in this encounter [facility] 01-04-2023 Miscellaneous Notes No return call received, however, noted patient now scheduled for OV with PCP for 01/04/23. Tried to reach pt makayla Dixon just rings. Amada Cohn Ma Tried to reach ciarra but line just rings. No answer or machine to leave message. Amada Chon Ma If he has acute worsening of [...] Vannessa Jorge RN documented in this encounter [facility] 01-03-2023 Note HNO ID: [id number] Author: Justina Escoto PT Service: ? Author [...] included: Therapeutic exercise, Neuromuscular re-education, Therapeutic activities, Self-detention management, and Gait training. Goals for Episode [...] PARTIALLY MET, improved 8 to 9 reps Duval in home exercise program including cardiovascular exercise. [...] in proper exercise (more content not included)... [facility] 01-03-2023 History of Presen t illness Narrative [...] included: Therapeutic exercise, Neuromuscular re-education, Therapeutic activities, Self-detention management, and Gait training. Goals for Episode [...] PARTIALLY MET, improved 8 to 9 reps Duval in home exercise program including cardiovascular exercise. [...] with an (*). Patient education as noted. Self-Long Term Management: 1: *strongly enouraged f/u with physician [...] Justina Escoto PT documented in this encounter [facility] 12-31-2022 Note HNO ID: [id number] Author: Justina Escoto PT Service: ? Author [...] Treatment Time Minutes (timed/untimed): 42 Ira Ramos, DEBT MANAGEMENT COUNSELOR Justina Escoto, PT [facility] 12-31-2022 History of Presen t illness Narrative [...] ALISIA Burch PT documented in this encounter [facility] 12-27-2022 Note HNO ID: [id number] Author: Justina Escoto PT Service: ? Author [...] Treatment Time Minutes (timed/untimed): 40 Ira Ramos, DEBT MANAGEMENT COUNSELOR Justina Escoto, PT [facility] 12-27-2022 History of Presen t illness Narrative [...] ALISIA Burch PT documented in this encounter [facility] 12-24-2022 Note HNO ID: [id number] Author: Justina Escoto PT Service: ? Author [...] was facilitated with verbal and visual cueing. Self-Long Term Management: 1: *strongly encouraged pt. to be [...] Time Minutes (timed/untimed): 40 Justina Escoto, PT [facility] 12-24-2022 History of Presen t illness Narrative [...] was facilitated with verbal and visual cueing. Self-Long Term Management: 1: *strongly encouraged pt. to be [...] Justina Escoto PT documented in this encounter [facility] 12-17-2022 Note HNO ID: [id number] Author: Justina Escoto PT Service: ? Author [...] of gait belt. Patient education as noted. Self-Long Term Management: 1: *discussed automatic lights 2: *discussed [...] Time Minutes (timed/untimed): 40 Justina Escoto, PT [facility] 12-17-2022 History of Presen t illness Narrative [...] of gait belt. Patient education as noted. Self-Long Term Management: 1: *discussed automatic lights 2: *discussed [...] Justina Escoto PT documented in this encounter [facility] 12-14-2022 Note HNO ID: [id number] Author: Justina Escoto PT Service: ? Author [...] Time Minutes (timed/untimed): 40 Justina Escoto, PT [facility] 12-14-2022 History of Presen t illness Narrative [...] Justina Escoto PT documented in this encounter [facility] 12-12-2022 Note HNO ID: [id number] Author: Justina Escoto PT Service: ? Author [...] Time Minutes (timed/untimed): 40 Justina Escoto, PT [facility] 12-12-2022 History of Presen t illness Narrative [...] Justina Escoto PT documented in this encounter [facility] 12-06-2022 Note HNO ID: [id number] Author: Justina Escoto, PT Service: ? Author [...] Time Minutes (timed/untimed): 40 Justina Escoto, PT [facility] 12-03-2022 Note HNO ID: [id number] Author: Bobbi Garcia MD Service: ? Author Type: Physician Type: Progress Notes Filed: 12/03/2022 12:13 PM Note Text: [facility] Cardiology ([facility]) [address] [facility] [facility] [id number] OUTPATIENT VISIT DATE 12/03/2022 PRIMARY CARE PHYSICIAN: Abdulaziz Caldera [address] [place] [address] HISTORY OF PRESENT ILLNESS: Mr. 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 ([facility]) 05/25/2018 History of transfusion Hyperlipidemia LDL goal < 100 04/01/2012 NSTEMI (non-ST elevated myocardial infarction) ([facility]) Pulmonary embolus, right ([facility]) 09/25/2013 Status post aortic valve repair 2005 Thoracic aneurysm without mention of rupture Type 2 diabetes mellitus with stage 3 chronic kidney disease, with long-term current use of insulin ([facility]) 06/20/2016 Vitamin D deficiency 01/03/2022 PAST SURGICAL HISTORY Procedure Laterality Date ABDOMINAL SURGERY HX AMPUTATION METATARSAL+TOE,SINGLE Right 05/25/2018 with delayed closure on 05/28/18. Dr. Obregon at [facility] COLONOSCOPY 10/10/2021 repeat in 3 years COLONOSCOPY [...] 5 EachRfl: 5 warfarin (COUMADIN) 5 mg [id number] mg Saturday and Saturday, 7.5 mg all [...] Units subcutaneously daily (more content not included)... [facility] 12-03-2022 Note HNO ID: [id number] Author: Justina Escoto, PT Service: ? Author [...] facilitated with verbal, visual, and tactile cueing. Self-Long Term Management: 1: *at length discussed importance of letting physician know about pt. concerns with his loss of interest in things prior to COVID-19 pandemic 2: *discussed that motivation will come from the pt. not from the or the therapist -- and this will directly influence pt. prison progress. 3: *discussed with and pt. that pt. stating I'm lazy. is not his personality and pt. states that he does not want to be this way, but he wants to be comfortable. (more content not included)... [facility] 11-29-2022 Note HNO ID: [id number] Author: Justina Escoto, PT Service: ? Author [...] 11 repetitions to reflect decreased fall risk. Duval in home exercise program including cardiovascular exercise. [...] Planned: 12 Planned Treatment Interventions: Therapeutic exercise (96405), Neuromuscular re-education (64014), Manual therapy (00168), Therapeutic activities (82270), Self-detention management (77976), Gait Training (29508), Patient/Family/Caregiver Education PLAN FOR NEXT VISIT: Assess low back symptom response to repeated lumbar flexion. Assess balance next visit if pt. presents with both shoes donned. Patient demonstrates fair understanding of plan of care and treatment. The above goals and plan of care were discussed and agreed upon by patient/family. SUBJECTIVE: Richard Ryo is a 77 year old male seen [...] <20 [facility] (more content not included)... [facility] 11-20-2022 Miscellaneous Notes OMAR 11/19/22 Appointment scheduled [...] to the pharmacy. Please call patient at: [phone]. Nola Castro Pss documented in this encounter [facility] 11-19-2022 Miscellaneous Notes Pt notified of [...] result): 09/24/2022 2.5 documented in this encounter [facility] 11-19-2022 Note HNO ID: [id number] Author: Abdulaziz Caldera MD Service: ? Author [...] Benign-Dr. 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 ([facility]) 05/25/2018 History of transfusion Hyperlipidemia LDL goal < 100 04/01/2012 NSTEMI (non-ST elevated myocardial infarction) ([facility]) Pulmonary embolus, right ([facility]) 09/25/2013 Status post aortic valve repair 2004 Thoracic aneurysm without mention of rupture Type 2 diabetes mellitus with stage 3 chronic kidney disease, with long-term current use of insulin ([facility]) 06/20/2016 Vitamin D deficiency 01/03/2022 Previous Surgical History PAST SURGICAL HISTORY Procedure Laterality Date ABDOMINAL SURGERY HX AMPUTATION METATARSAL+TOE,SINGLE Right 05/25/2018 with delayed closure on 05/28/18. Dr. Obregon at [facility] COLONOSCOPY 10/10/2021 repeat in 3 years COLONOSCOPY [...] chloride 0.9 % (more content not included)... [facility] 10-22-2022 Note HNO ID: [id number] Author: Arminda Obregon Service: ? Author Type: [...] RTC in 3-4 months. Arminda Obregon DPM [facility] 10-22-2022 Note HNO ID: [id number] Author: Blaire Sandoval RN Service: ? Author Type: ? Type: Progress Notes Filed: 10/22/2022 3:47 PM Note Text: Patient presents with: Left Foot - Established Patient, Diabetic Foot Care Right Foot - Established Patient, Diabetic Foot Care [facility] 10-22-2022 History of Presen t illness Narrative [...] Diabetic Foot Care documented in this encounter [facility] 10-22-2022 Instructions Arminda Obregon - 10/22/2022 [...] (or decreased sensation in your feet) a herpetologist should always cut your toenails. Be Careful [...] Go to your health care provider or herpetologist to treat these conditions. documented in this encounter [facility] 09-25-2022 Miscellaneous Notes Patient notified. Voices [...] or narrative: no documented in this encounter [facility] 09-07-2022 Note HNO ID: [id number] Author: Tamie Kaur MD Service: ? Author [...] evaluation of folllow up after hospitalization in [facility]. he was admitted because of [...] others Since covid hit they went to [facility] and was staying in the house [...] Benign-Dr. 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 ([facility]) 05/25/2018 History of transfusion Hyperlipidemia LDL goal < 100 04/01/2012 NSTEMI (non-ST elevated myocardial infarction) ([facility]) Pulmonary embolus, right ([facility]) 09/25/2013 Status post aortic valve repair 2004 Thoracic aneurysm without mention of rupture Type 2 diabetes mellitus with stage 3 chronic kidney disease, with long-term current use of insulin ([facility]) 06/20/2016 Vitamin D deficiency 01/03/2022 PSH: PAST SURGICAL HISTORY Procedure Laterality Date ABDOMINAL SURGERY HX AMPUTATION METATARSAL+TOE,SINGLE Right 05/25/2018 (more content not included)... [facility] 09-07-2022 Miscellaneous Notes Call to patient. Provided number to schedule- [phone]. Offered to transfer patient to schedule but patient declined to schedule stating he could call later. PAOLA Potter, RN September 07, 2022 1:11 PM Suzanne please let patient know how to proceed with driving evaluation I already put the order in computer documented in this encounter [facility] 09-07-2022 History of Presen t illness [...] evaluation of folllow up after hospitalization in [facility]. he was admitted because of [...] others Since covid hit they went to [facility] and was staying in the house [...] Benign-Dr. 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 ([facility]) 05/25/2018 History of transfusion Hyperlipidemia LDL goal < 100 04/01/2012 NSTEMI (non-ST elevated myocardial infarction) ([facility]) Pulmonary embolus, right ([facility]) 09/25/2013 Status post aortic valve repair 2005 Thoracic aneurysm without mention of rupture Type 2 diabetes mellitus with stage 3 chronic kidney disease, with long-term current use of insulin ([facility]) 06/20/2016 Vitamin D deficiency 01/03/2022 PSH: PAST SURGICAL HISTORY Procedure Laterality Date ABDOMINAL SURGERY HX AMPUTATION METATARSAL+TOE,SINGLE Right 05/25/2018 with delayed closure on 05/28/18. Dr. Obregon at [facility] COLONOSCOPY 10/10/2021 repeat in 3 years COLONOSCOPY [...] one time a week. blood sugar diagnostic ([employer] ULTRA TEST) test strip Test blood sugar(s) [...] gait ,unsteady Cannot tandem Tamie Kaur M.D. [facility] [place] Department of Neurology Total time in minutes [...] on at night. documented in this encounter [facility] 08-28-2022 Miscellaneous Notes Phoned patient and [...] debra Heller LPN documented in this encounter [facility] 08-16-2022 Miscellaneous Notes Patient has been [...] patient. Grecia Bustillo documented in this encounter [facility] 08-14-2022 Miscellaneous Notes Phoned patient and [...] or narrative: no documented in this encounter [facility] 08-09-2022 Note HNO ID: [id number] Author: Abdulaziz Caldera MD Service: ? Author [...] 12 months ago. Going to schedule appointment [facility] [place]. 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 Asymtpomatic still on medical management. Has completed his home PT/OT. Echo and stress test at [facility] were negative/normal. Has follow up with Dr. Garcia on 12/03. questioning if they should be seen sooner. BP well controlled with current regimen <130/80. BPH: With use of flomax, patient is getting up once at night to urinate. Has weak stream, but denies straining, incomplete emptying, dysuria, hematuria, incontinence. Followed up with ENT in [place] for chronic frontal sinusitis on CT/MRI going [...] delayed closure on 05/28/18. Dr. Obregon at [facility] COLONOSCOPY 10/10/2021 repeat in 3 years COLONOSCOPY [...] daily. For cholesterol. (more content not included)... [facility] 08-09-2022 History of Presen t illness Narrative [...] 12 months ago. Going to schedule appointment [facility] [place]. 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 Asymtpomatic still on medical management. Has completed his home PT/OT. Echo and stress test at [facility] were negative/normal. Has follow up with Dr. Garcia on 12/03. questioning if they should be seen sooner. BP well controlled with current regimen <130/80. BPH: With use of flomax, patient is getting up once at night to urinate. Has weak stream, but denies straining, incomplete emptying, dysuria, hematuria, incontinence. Followed up with ENT in [place] for chronic frontal sinusitis on CT/MRI going [...] goal < 100 04/01/2012 Pulmonary embolus, right ([facility]) 09/25/2013 Status post aortic valve repair 2005 Thoracic aneurysm without mention of rupture Type 2 diabetes mellitus with stage 3 chronic kidney disease, with long-term current use of insulin ([facility]) 06/20/2016 Vitamin D deficiency 01/03/2022 Previous Surgical History PAST SURGICAL HISTORY Procedure Laterality Date ABDOMINAL SURGERY HX AMPUTATION METATARSAL+TOE,SINGLE Right 05/25/2018 with delayed closure on 05/28/18. Dr. Obregon at [facility] COLONOSCOPY 10/10/2021 repeat in 3 years COLONOSCOPY [...] by mouth once daily. blood sugar diagnostic ([employer] ULTRA TEST) test strip Test blood sugar(s) [...] Abs Lymph 1.00 - 4.00 k/uL 1.81 Howell% % 6.9 Abs Howell <0.87 k/uL 0.86 Eosin% % 3.1 Abs [...] neuropathy, with long-term current use of insulin ([facility]) - ICD9: 250.60, 357.2, V58.67, ICD10: E11.40, Z79.4 (primary diagnosis) improved control - Continue current medications - Blood glucose monitoring on a four times a day schedule - Encouraged regular aerobic exercise and weight loss - Follow up in 6 months, sooner should any other issues arise. - Discussed diabetic education issues of prison diabetic complications, hypoglycemic symptoms, hyperglycemic symptoms, diet, medications- side effects and need for compliance, importance of exercise, use and side effects of insulin, and importance of annual examinations with Opthalmology with patient. - HGB A1C - COMP METABOLIC PANEL - INSULIN ASPART (U-100) 100 UNIT/ML (3 ML) SUBCUTANEOUS PEN - CBC + DIFF 2. Diabetic polyneuropathy associated with type 2 diabetes mellitus ([facility]) - ICD9: 250.60, 357.2, ICD10: E11.42 Controlled on current regimen. 3. NSTEMI (non-ST elevated myocardial infarction) ([facility]) - ICD9: 410.70, ICD10: I21.4 [...] Abdulaziz Caldera MD documented in this encounter [facility] 08-06-2022 Miscellaneous Notes Phoned patient and updated him with provider's message. Patient voiced understanding. I would not recommend a baby ASA for this patient. Pt called to check on refill on baby aspirin. This is not on med list. Pt asking if he should be taking this. Please advise pt. Mila Castro LPN documented in this encounter [facility] 08-06-2022 Note HNO ID: [id number] Author: Arminda Jaimes MD Service: ? Author [...] physician via mail or electronic medical record. [facility] 08-06-2022 History of Presen t illness Narrative [...] electronic medical record. documented in this encounter [facility] 07-31-2022 Miscellaneous Notes Spoke with patient [...] Rebecca Esteban LPN documented in this encounter [facility] 07-27-2022 Miscellaneous Notes [facility] message not read as of 07/27/2022. Called and spoke with patient. Appt rescheduled to 09/07/2022 at 11:00 AM Meghana Burgess Due to change in provider's schedule, appt on 08/21/2022 needs rescheduled. Patient notified via [facility] message on 07/05/2022. Meghana Burgess documented in this encounter [facility] 07-26-2022 Miscellaneous Notes Thanks. Darlyn, a nurse with [facility] calling to state she has discharged pt from snf today. Pt is doing really well. No call back needed. Thank you. documented in this encounter [facility] 01-11-2023 Miscellaneous Notes Last Office Visit: 07/12/2022 Future Office Visit: 08/09/2022 Requested Prescriptions Pending Prescriptions Disp Refills amLODIPine (NORVASC) 2.5 mg tablet 30 tablet 5 Sig: Take 1 tablet by mouth once daily. Date of Last Labs: 03/02/2022 documented in this encounter [facility] 07-17-2022 Miscellaneous Notes Reviewed and agree. Maverick PT calling from [facility] to report plan of care for patient and PT will visit patient 2 times a week for 3 weeks. PT will work with patient on functional mobility training. Halima Diaz RN documented in this encounter [facility] 07-17-2022 Miscellaneous Notes Reviewed. Barbi from [facility] calling with OT plan of care, one time visit only, patient denies any further OT needs. No call back needed. documented in this encounter [facility] 07-13-2022 Miscellaneous Notes Left detailed message on confidential line Ewa Andino Ma agree Chiki, a nurse with [facility] calling with Longterm Plan of Care for patient: Patient will be seen 1 time per week for 4 weeks for BP monitoring. No call back needed if provider agreeable. Thank you. documented in this encounter [facility] 07-12-2022 Note HNO ID: [id number] Author: Abdulaziz Caldera MD Service: ? Author Type: Physician Type: Progress Notes Filed: 07/17/2022 8:33 AM Note Text: Chief Complaint Patient presents with: Hospital F/U: Admitted 07/09/22 discharged 07/11/22 HPI Richard Roy is a 76 year old male who presents here today for Hospital Discharge Follow up.. Patient was admitted to [facility] from 07/09 to 07/11 after presenting to [...] to follow up with our office and wharf tally clerk. Since discharge yesterday, patient has been doing [...] Benign-Dr. 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 ([facility]) 05/25/2018 History of transfusion Hyperlipidemia LDL goal < 100 04/01/2012 Pulmonary embolus, right ([facility]) 09/25/2013 Status post aortic valve repair 2004 Thoracic aneurysm without mention of rupture Type 2 diabetes mellitus with stage 3 chronic kidney disease, with long-term current use of insulin ([facility]) 06/20/2016 Vitamin D deficiency 01/03/2022 Previous Surgical History PAST SURGICAL HISTORY Procedure Laterality Date ABDOMINAL SURGERY HX AMPUTATION METATARSAL+TOE,SINGLE Right 05/25/2018 with delayed closure on 05/28/18. Dr. Obregon at [facility] COLONOSCOPY 10/10/2021 repeat in 3 years COLONOSCOPY [...] 0.4 mg Take (more content not included)... [facility] 07-12-2022 Miscellaneous Notes Karly was notified Ewa Andino Ma Agree and will follow Karly with [facility] called and reports Pt was discharged yesterday and they received a referral for PT/OT/SN. They are going to do their start of care tomorrow, and she was asking if the provider would be willing to follow. documented in this encounter [facility] 07-09-2022 Miscellaneous Notes Last Office Visit: 04/16/2022 Future Office Visit: 09/17/2022 Requested Prescriptions Pending Prescriptions Disp Refills dulaglutide (TRULICITY) 1.5 mg/0.5 mL pen injector 12 Each 3 Sig: Inject 1.5 mg subcutaneously one time a week. Inject once per week. Discard Pen After Date of Last Labs: 03/02/2022 documented in this encounter [facility] 07-03-2022 Note HNO ID: [id number] Author: Arminda Obregon Service: ? Author Type: [...] RTC in 3-4 months. Arminda Obregon DPM [facility] 07-03-2022 Note HNO ID: [id number] Author: Marcella Cox RN Service: ? Author Type: Registered Nurse Type: Progress Notes Filed: 07/03/2022 11:17 AM Note Text: Patient presents with: Left Foot - Established Patient, Follow Up, nail care Right Foot - Established Patient, Follow Up, nail care [facility] 07-02-2022 Note HNO ID: [id number] Author: Bobbi Garcia MD Service: ? Author Type: Physician Type: Progress Notes Filed: 07/02/2022 12:42 PM Note Text: [facility] CARDIOLOGY Cardiology ([facility]) [address] [facility] [id number] OUTPATIENT VISIT DATE 07/02/2022 PRIMARY CARE PHYSICIAN: Abdulaziz Caldera [address] [place] [address] HISTORY OF PRESENT ILLNESS: Mr. Roy is [...] HISTORY: From Last OV with Justina Hadley [facility] 01/01/2022: Richrad Roy is a 76 year old male who presents for routine follow up. 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 His accompanies him for his office visit today. They both explain to me he was hospitalized at [facility] for 2 days last week for [...] LE swelling. Records have been requested from [facility]. He is unsure of what testing was completed. An echocardiogram was ordered at his last office visit with me. If this was not completed at [facility], I recommend this be completed for further cardiac evaluation. PAST MEDICAL HISTORY Diagnosis Date BPH (benign prostatic hyperplasia) Cholelithiasis 09/25/2013 Chronic neutrophilia Benign-Dr. 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 Dr. Obregon at [facility] COLONOSCOPY 10/10/2021 repeat in 3 years COLONOSCOPY [...] at bedtime.Disp: 3 (more content not included)... [facility] 06-25-2022 Miscellaneous Notes Last appt: 04/16/22 - [...] Tania Heller LPN documented in this encounter [facility] 05-16-2022 Miscellaneous Notes Patient has been [...] Mila Castro LPN documented in this encounter [facility] 04-17-2022 History of Presen t illness [...] evaluation of folllow up after hospitalization in [facility]. he was admitted because of [...] others Since covid hit they went to [facility] and was staying in the house [...] delayed closure on 05/28/18. Dr. Obregon at [facility] COLONOSCOPY 10/10/2021 repeat in 3 years COLONOSCOPY [...] week. Discard Pen After blood sugar diagnostic (MenuSpring ULTRA TEST) test strip Test blood sugar(s) [...] gait ,unsteady Cannot tandem Tamie Kaur M.D. [facility] [place] Department of Neurology Total time in minutes [...] on at night. documented in this encounter [facility] 04-17-2022 Miscellaneous Notes Reviewed. Behavioral Health Social Work Progress Note Patient identified for [facility] from: PCP Reason for referral: Resources Behavioral Health Resources: Psychology - talk therapy [facility] encounter type: Telephone Encounter Attempts to Outreach: 1 attempt Referral made: Psychology - External Psychology-External referral type: Therapy Reason for external referral: Wait times at [facility] too long Final Disposition: Resources given Patient Discharged?: Yes Patient reported that caregiver was able to meet their needs today?: Yes SW placed a phone call to patient at the request of the PCP. Pt reported he is looking for talk therapy referrals at this time. SW provided the following referrals via phone: [facility] [address], [facility] [place], [facility] [address] *[facility]ing [facility] [address] [address] *counseling [facility] [address], [address] [place] [address] *counseling [facility] [address] [place] [address] FEDERICO Zamudio April 17, 2022 documented in this encounter [facility] 04-16-2022 History of Presen t illness [...] (HCC) 09/08/2010 Diabetic retinopathy of right eye ([facility]) mild Diverticulosis of colon (without [...] delayed closure on 05/28/18. Dr. Obregon at [facility] COLONOSCOPY 10/10/2021 repeat in 3 years COLONOSCOPY [...] week. Discard Pen After blood sugar diagnostic (XLerantTOUCH ULTRA TEST) test strip Test blood sugar(s) [...] Abs Lymph 1.00 - 4.00 k/uL 1.81 Howell% % 6.9 Abs Howell <0.87 k/uL 0.86 Eosin% % 3.1 Abs [...] disease, with long-term current use of insulin ([facility]) - ICD9: 250.40, 585.3, V58.67, ICD10: E11.22, N18.31, Z79.4 (primary diagnosis) Controlled. - Continue current medications - Blood glucose monitoring on a 3 times a day schedule - Encouraged regular aerobic exercise and weight loss - Follow up in 6 months, sooner should any other issues arise. - Discussed diabetic education issues of prison diabetic complications, hypoglycemic symptoms, hyperglycemic symptoms, diet, [...] Abdulaziz Caldera MD documented in this encounter [facility] documented in this encounter [facility] History of Present illness Narrative* Roselia Madrigal, INSTRUCTOR WARPER.NETWORK OPERATIONS PROJECT MANAGER - 04/06/2022 9:40 AM EDT 04/06/2022 Patient [...] Benign-Dr. 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 FOR CHOLESTEROL. blood sugar diagnostic (MenuSpring ULTRA TEST) test strip Test blood sugar(s) [...] SEASONAL QUADRIVALENT HIGH DOSE AGE 65+ - [place] COVID-19 BIVALENT BOOSTER VACCINE, AGE 12+ YR [...] which included preparing to see the patient, [id number] patient care, completing clinical documentation, obtaining and/or reviewing separately obtained history, performing a medically appropriate examination, and counseling and educating the patient/family/caregiver. [facility] Miscellaneous Notes* Telephone Encounter - Valencia [...] AM EDT ----- Message from Roselia Madrigal APRN.NETWORK OPERATIONS PROJECT MANAGER sent at 04/03/2022 2:47 PM EDT ----- Please forward INR to doctor data visualization developer Roselia Madrigal APRN.NETWORK OPERATIONS PROJECT MANAGER documented in [facility] encounter[facility] History of Present illness Narrative* Arminda [...] Care Merlene Martinez LPN documented in [facility] Instructions* Patient Instructions* Arminda Obregon - [...] (or decreased sensation in your feet) a herpetologist should always cut your toenails. Be Careful [...] Go to your health care provider or herpetologist to treat these conditions. documented in [facility] History of Present illness Narrative* Rosa [...] 01/12/22 through 03/15/22 Goals updated on 03/23/2022. [place] in home exercise program. (Met) Patient will [...] Rosa Elena Poon PT documented in this encounter[facility]22 Miscellaneous Notes* Telephone Encounter - Maggy Ibarra Pss - 03/22/2022 1:49 PM EDT Pharmacy verified [facility] Patient has been identified by name and [...] advise. Maggy Ibarra Pss documented in this encounter[facility] History of Present illness Narrative* Rosa [...] Treatment Time Minutes (timed/untimed): 40 Karen Weber, DEBT MANAGEMENT COUNSELOR Rosa Elena Poon PT documented in this encounter[facility]08[facility]22 History of Present illness Narrative* Rosa [...] 41 ALISIA Whiting PT documented in this encounterMart[facility]08-26-2022 Miscellaneous Notes* Addendum Note - Rosa Elena Poon PT - 03/09/2022 1:18 PM EDTAddended by: ROSA ELENA POON on: 03/09/2022 01:18 PM Modules accepted: Orders documented in this encounterMartins Ferry Hospital08-26-2022 History of Present illness Narrative* Rosa [...] 01/12/22 through 03/15/22 Goals updated on 03/09/2022. [place] in home exercise program. (Met) Patient will [...] Patient to be seen for Therapeutic exercise (00879);Neuromuscular re-education (50615);Gait Training (72718);Patient/Family/Caregiver Education PLAN FOR NEXT VISIT: Add bridging [...] Rosa Elena Lemon, PT documented in this encounterMart[facility]22 Miscellaneous Notes* Telephone Encounter - Amada [...] testing Madison Ma Cma documented in this encounterMart[facility]08-24-2022 Instructions* Patient Instructions* Abdulaziz Caldera MD - 03/07/2022 11:45 AM EDT Please take 2,000 units of vitamin D daily over the counter. documented in this encounterMart[facility]08-[facility]22 History of Present illness Narrative* Abdulaziz Caldera MD - 03/07/2022 11:19 AM EDT Chief Complaint Patient presents with: 6 Month Exam ER F/U HPI Richard Roy is a 76 year old male who presents here today for ER Follow Up.. Patient evaluated at [facility] ED on 03/02 for complaint of weakness [...] Benign-Dr. 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 ([facility]) 05/25/2018 History of transfusion Hyperlipidemia LDL goal < 100 04/01/2012 Pulmonary embolus, right ([facility]) 09/25/2013 Status post aortic valve repair 2004 Thoracic aneurysm without mention of rupture Type 2 diabetes mellitus with stage 3 chronic kidney disease, with long-term current use of insulin([facility]) 06/20/2016 Vitamin D deficiency 01/03/2022 Previous Surgical History PAST SURGICAL HISTORY Procedure Laterality Date ABDOMINAL SURGERY HX AMPUTATION METATARSAL+TOE,SINGLE Right 05/25/2018 with delayed closure on 05/28/18. Dr. Obregon at [facility] COLONOSCOPY 10/10/2021 repeat in 3 years COLONOSCOPY [...] ONCE DAILY. FOR CHOLESTEROL. blood sugar diagnostic (MenuSpring ULTRA TEST) test strip Test blood sugar(s) [...] Abs Lymph 1.00 - 4.00 k/uL 1.81 Howell% % 6.9 Abs Howell <0.87 k/uL 0.86 Eosin% % 3.1 Abs [...] PANEL Abdulaziz Caldera MD documented in this encounterMart[facility]08-22-[facility]22 History of Present illness Narrative* Rosa [...] Rosa Elena Poon PT documented in this encounterMartins [facility]erry [facility]08-19-2022 History of Present illness Narrative* Rosa [...] Rosa Elena Poon PT documented in this encounterMart[facility]08-15-2022 History of Present illness Narrative* Rosa [...] Rosa Elena Poon PT documented in this encounterMart[facility]08-12-2022 History of Present illness Narrative* Rosa [...] 43 ALISIA Whiting PT documented in this encounterMart[facility]08-03-2022 History of Present illness Narrative* Rosa [...] Rosa Elena Poon PT documented in this encounterMart[facility]07-29-[facility]22 History of Present illness Narrative* Rosa [...] 01/12/22 through 03/15/22 Goals updated on 02/09/2022. [place] in home exercise program. (Met) Patient will [...] Patient to be seen for Therapeutic exercise (67824);Neuromuscular re-education (37707);Gait Training (11821);Patient/Family/Caregiver Education PLAN FOR NEXT VISIT: Continue to [...] Rosa Elena Poon PT documented in this encounterMart[facility]erry [facility]07-26-2022 Miscellaneous Notes* Telephone Encounter - Nola [...] patient. Nola Castro Pss documented in this encounterMartins [facility]erry Hospital07-22-2022 History of Present illness Narrative* Cortney [...] 43 ALISIA Whiting, PT documented in this encounterMart[facility]erry [facility]07-21-2022 Miscellaneous Notes* Telephone Encounter - Mila [...] No need to notify patient. Eulalia Gaston [facility] documented in this encounterMartins Ferry Hospital07-19-2022 History of Present illness Narrative* Justina [...] 43 ALISIA Whiting PT documented in this encounterMart[facility]erry Hospital07-12-2022 Miscellaneous Notes* Telephone Encounter - Rebecca [...] you. Rebecca Gonzales RN documented in this encounterMartins Ferry Hospital07-12-2022 History of Present illness Narrative* Chiki [...] 45 ALISIA Whiting PT documented in this encounterMart[facility]erry Hospital07-08-2022 Miscellaneous Notes* Telephone Encounter - Maggy [...] on driving. Please advise. documented in this encounterMartins Ferry Hospital07-01-2022 History of Present illness Narrative* Rosa [...] of Care: created on 01/12/22 through 03/15/22 [place] in home exercise program. Patient will demonstrate [...] Planned: 16 Planned Treatment Interventions: Therapeutic exercise (94506);Neuromuscular re- education (13571);Gait Training (46370);Patient/Family/Caregiver Education PLAN FOR NEXT VISIT: Review HEP [...] Rosa Elena Poon PT documented in this encounterMartins Ferry Hospital07-01-2022 Miscellaneous Notes* Telephone Encounter - Ewa [...] Pending consult. Please advise documented in this encounterMartins [facility]erry Hospital06-29-2022 Miscellaneous Notes* Telephone Encounter - Mila [...] his syncope/collapse. Thank you! documented in this encounterMartins Ferry Hospital06-29-2022 Miscellaneous Notes* Result QuickNote - Justina Hadley APRN.CNP - 01/10/2022 11:33 AM EDT Please call patient and notify him. Echocardiogram is stable. Valve replacement function is stable.No cardiac structure/function changes to explain his syncope/collapse. Thank you! documented in this encounterMartins Ferry Hospital06-24-2022 History of Present illness Narrative* Tamie [...] medical record. REFERRING PHYSICIAN: Abdulaziz Caldera [address] [facility] [id number] Accompanied by: Spouse ASSESSMENT: 76 year old [...] evaluation of folllow up after hospitalization in [facility]. he was admitted because of [...] others Since covid hit they went to [facility] and was staying in the house [...] delayed closure on 05/28/18. Dr. Obregon at [facility] COLONOSCOPY 10/10/2021 repeat in 3 years COLONOSCOPY [...] by mouth once daily. blood sugar diagnostic (RebtelUCH ULTRA TEST) test strip Test blood sugar(s) [...] gait ,unsteady Cannot tandem Tamie Kaur M.D. [facility] [place] Department of Neurology January 05, 2022 Total [...] lights on at night. documented in this encounterMartins Ferry Hospital06-21-2022 Miscellaneous Notes* Telephone Encounter - Justina Martinez LPN - 01/02/2022 8:06 AM EDT I spoke to and informed him of Justina's response to lipid panel results. Patient voiced understanding. Justina Martinez LPN * Telephone Encounter - Justina Martinez LPN - 01/02/2022 7:43 AM EDT ----- Message from Justina Hadley APRN.NETWORK OPERATIONS PROJECT MANAGER sent at 01/02/2022 7:38 AM EDT ----- Please call patient and notify him cholesterol has good control. Thank you! documented in this encounterMartins Ferry Hospital06-20-2022 History of Present illness Narrative* Abdulaziz Caldera MD - 01/01/2022 10:20 AM EDT Chief Complaint Patient presents with: Hospital Follow Up: [facility] discharged 12/29/21 HPI Richard Roy is a 76 year old male who presents here today for Hospital Discharge Follow up. Accompanied today by his . Patient admitted to [facility] from 12/27 to 12/29 after presenting to the [facility] ED after being found slumped over his tractor at home earlier in the afteernoon. Had been working outside for unknown period of time. Had only eaten cookies and milk that day. Heat index over 100. Back to baseline at the time of evaluation by hospitalist at [facility]. Found to have leukocytosis at [place] [facility] and elevated lactic acid level. Noted [...] echo since it was not completed at [facility]. No other changes to regimen. Patient incontinent [...] kidney disease, with long-term current use of insulin([facility]) 06/20/2016 Previous Surgical History PAST SURGICAL HISTORY Procedure Laterality Date ABDOMINAL SURGERY HX AMPUTATION METATARSAL+TOE,SINGLE Right 05/25/2018 with delayed closure on 05/28/18. Dr. Obregon at [facility] COLONOSCOPY 10/10/2021 repeat in 3 years COLONOSCOPY [...] by mouth once daily. blood sugar diagnostic (MenuSpring ULTRA TEST) test strip Test blood sugar(s) [...] SCRN Abdulaziz Caldera MD documented in this encounterMartins Ferry Hospital06-20-2022 Instructions* Patient Instructions* Justina Hadley APRN.NETWORK OPERATIONS PROJECT MANAGER - 01/01/2022 9:05 AM EDT High Blood [...] risk for high blood pressure. Developed by [employer] Published by [employer] Copyright 2014 [employer] and/or one of its subsidiaries. All rights reserved. documented in this encounterMartins Ferry Hospital06-20-2022 History of Present illness Narrative* Justina [...] bothexplain to me he was hospitalized at [facility] for 2 days last week for [...] LE swelling. Records have been requested from [facility]. He is unsure of what testing was completed. An echocardiogram was ordered at his last office visit with me.If this was not completed at [facility], I recommend this be completed for further cardiac evaluation. PAST MEDICAL HISTORY Diagnosis Date Cholelithiasis 09/25/2013 Chronic neutrophilia Benign-Dr. 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 Dr. Obregon at [facility] COLONOSCOPY 10/10/2021 repeat in 3 years COLONOSCOPY [...] injection (DEFINITY) INTRAVENOUS DIRECTED PRN Justina Hadley, INSTRUCTOR WARPER.NETWORK OPERATIONS PROJECT MANAGER sodium chloride 0.9 % (flush) 10 mL (BD POSIFLUSH) 10 mL INTRAVENOUS DIRECTED PRN Justina Hadley, INSTRUCTOR WARPER.NETWORK OPERATIONS PROJECT MANAGER Review of Systems Constitutional: Negative for chills, [...] MRI of his head CAD -MILD on [facility] 2004 -stress testing 2013 with no obvious [...] 01, 2022, 8:57 AM documented in this encounterMartins Ferry Hospital06-19-2022 Note. MICRO - Microbiology PROCEDURE: Blood Culture (bacterial) [*1] SOURCE: Blood BODY SITE: COLLECTED DATE/TIME: 12/27/2021 17:43 EDT RECEIVED DATE/TIME: 12/28/2021 14:37 EDT START DATE/TIME: 12/28/2021 14:37 EDT FREE TEXT SOURCE: FINAL REPORTS Final Report [] Verified Date/Time/Personnel: 12/31/2021 07:29 EDT Staphylococcus epidermidis Isolated from anaerobe bottle only. Refer to previous culture for susceptibility. [id number] PRELIMINARY REPORTS Preliminary Report [] Verified Date/Time/Personnel: 12/30/2021 09:39 EDT Staphylococcus epidermidis Isolated from anaerobe bottle only. Refer to previous culture for susceptibility. [id number] Preliminary Report [] Verified Date/Time/Personnel: 12/28/2021 15:59 EDT Culture has been received in lab and is no growth to date. Routine cultures are held for 5 days. STAINS GSANA [] Verified Date/Time/Personnel: 12/29/2021 14:08 EDT Gram Positive Cocci in clusters Performing Locations *1: This test was performed at: [facility], [address] [place] [address], [facility] , [facility] ([place])12-31-2021 Note. MICRO - Microbiology PROCEDURE: Blood Culture [...] Locations *1: This test was performed at: [facility], [address] [place] [address], [id number] , [facility] ([place])12-27-2021 SARS-CoV-2 (COVID-19) RNA ANGELY+probe Ql (Nph)Positive 2 *ABN* (12/27/21 5:43 PM)AO Auto Urine SSComment on above:Result Comment: positive covid cvrb s. tona Evaluation + Plan note Diagnostic Tests Pending * Urinalysis 12/27/21 * Blood Culture (bacterial) 12/27/21 * Blood Culture (bacterial) 12/27/21 [facility] 06-02-2022 History of Present illness Narrative* Abdulaziz Caldera MD - 12/14/2021 3:13 PM EDT Chief Complaint Patient presents with: Covid Follow Up HPI Richard Roy is a 76 year old male who presents here today for Above Complaints.. Patient positive for COVID in the [facility] ER last week on 12/06. Spoke with [...] Benign-Dr. 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 Dr. Obregon at [facility] COLONOSCOPY 10/10/2021 repeat in 3 years COLONOSCOPY [...] by mouth once daily. blood sugar diagnostic (XLerantTOUCH ULTRA TEST) test strip Test blood sugar(s) [...] detail. Abdulaziz Caldera MD documented in this encounter[facility]-27-[facility] History of Present illness Narrative* Abdulaziz [...] today for Above Complaints.. Patient evaluated at [facility] ER on 12/06 for complaint of generalized weakness, cough, and feeling off balance and developed cough which started on 12/04. Denied other COVID symptoms at that time. Lab workup in the ER was unremarkable aside from positive COVID test and INR of 3.3. UA unremarkable. CXR showed some ill defined densities in RLL which was likely 2/2 COVID infection. Jarales to be well enough and discharged home [...] amputation of first toe of right foot ([facility]) 05/25/2018 History of transfusion Hyperlipidemia LDL goal < 100 04/01/2012 Pulmonary embolus, right ([facility]) 09/25/2013 Status post aortic valve repair 2005 Thoracic aneurysm without mention of rupture Type 2 diabetes mellitus with stage 3 chronic kidney disease, with long-term current use of insulin([facility]) 06/20/2016 Previous Surgical History PAST SURGICAL HISTORY Procedure Laterality Date ABDOMINAL SURGERY HX AMPUTATION METATARSAL+TOE,SINGLE Right 05/25/2018 with delayed closure on 05/28/18. Dr. Obregon at [facility] COLONOSCOPY 10/10/2021 repeat in 3 years COLONOSCOPY [...] by mouth once daily. blood sugar diagnostic (MenuSpring ULTRA TEST) test strip Test blood sugar(s) [...] these interactions. Not interested in driving to [facility] for IV ab. Since his symptoms are mild, he would prefer to rest at home. Discussed risks and benefits of treatment and that he is high risk for severe infection. Red flags for re-assessment reviewed with patient in detail. I spent a total of 25 minutes on the date of the service which included preparing to see the patient, [id number] patient care, completing clinical documentation, obtaining and/or reviewing separately obtained history, performing a medically appropriate examination, counseling and educating the pat ient/family/caregiver and ordering medications, tests, or procedures. Abdulaziz Caldera MD documented in this encounterMart[facility]05-27-2022 Miscellaneous Notes* Telephone Encounter - Abdulaziz [...] with one of our providers or with [facility] online. * Telephone Encounter - Rosa Elena Martinez [facility] - 12/08/2021 2:16 PM EDT Patient called stating he was at [facility] ER on 12/06. Tested positive for covid. Patient was informed tocontact the office within 5 days to inform. Please advise patient when he can be seen in office. documented in this encounterMartins [facility]erry [facility]05-09-2022 Miscellaneous Notes* Telephone Encounter - Eulalia Gaston [facility] - 11/20/2021 9:49 AM EDT Patient has been identified by name and date of : Yes Pending Prescriptions Disp Refills METFORMIN ER 500 MG 24 HR TABLET,EXTENDED RELEASE Sig: Take 1 tablet by mouth daily with breakfast. NUHA: No OMAR-09/06/21 Labs-08/30/21 NOV-03/07/22 RX INSTRUCTIONS: Patient aware RX will be sent to pharmacy. No need to notify patient. Eulalia [facility] documented in this encounterMartins Ferry Hospital04-11-2022 Instructions* Patient Instructions* Marcella Park PA-C - 10/23/2021 1:25 PM EDT -Recommend daily fiber supplement and plenty of fluids The following instructions are important for you related to your office visit today with the [facility]. INSTRUCTIONS FOR DIVERTICULA I recommend [...] you should contact our office immediately @ [phone] and ask to be transferred to the General Surgery department. The following instructions are important for you related to your office visit today with the [facility]. INSTRUCTIONS FOLLOWING A POLYP FOUND [...] you should contact our office immediately @ [phone] and ask to be transferred to the General Surgery department. documented in this encounterMartins Ferry Hospital04-11-2022 History of Present illness Narrative* Marcella Park PA-C - 10/23/2021 1:09 PM EDT FOLLOW UP VISIT - ENDOSCOPY NAME: [facility] NO[facility] [id number] DATE OF SERVICE: 10/23/2021 : 1945 REFERRING [...] which included preparing to see the patient, [id number] patient care, completing clinical documentation, obtaining and/or reviewing separately obtained history, counseling and educating the patient/family/caregiver, communicating with other HCPs (not separately reported), independently interpreting results (not separately reported) and communicating results to the patient/family/caregiver. Marcella Park PA-C documented in this encounterMartins Ferry Hospital03-29-2022 Nurse Note* Caroline Larkin RN - [...] answered. Caroline Larkin RN documented in this encounterMartins Ferry Hospital03-29-2022 History and physical note * Richard [...] Benign-Dr. 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 Dr. Obregon at [facility] COLONOSCOPY FLX DX W/COLLJ SPEC WHEN PFRMD [...] by mouth once daily. blood sugar diagnostic (RebtelUCH ULTRA TEST) test strip Test blood sugar(s) [...] patient was offered a surgery[facility]. 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 Patient aware RX will be sent to pharmacy. No need to notify patient. Violette Lockhart documented in this encounterMartins Ferry Hospital03-23-2022 Miscellaneous Notes* Telephone Encounter - Nelson [...] advise, Halima Diaz RN documented in this encounterMartins Ferry Hospital02-02-2022 Miscellaneous Notes* Telephone Encounter - Garland Vicente - 08/16/2021 9:36 AM EST 10-10-2021 Colon [facility] documented in this encounterMartins Ferry Hospital01-13-2022 NoteHNO ID: [id number] Author: REY Burt Service: Radiology Author Type: Rug Designer Type: Progress Notes Filed: 07/27/2021 10:50 AM [...] Roy DATE: July 27, 2021 TIME: 10:49 [id number] History of Past illness Narrative* Problem Noted [...] of this encounter (statuses as of 10/04/2021) [facility] of [facility] illness Narrative* Problem [...] of this encounter (statuses as of 10/05/2021) [facility] Narrative* Problem [...] of this encounter (statuses as of 10/11/2021) [facility] Narrative* Problem [...] of this encounter (statuses as of 10/16/2021) [facility] Narrative* Problem [...] of this encounter (statuses as of 10/27/2021) [facility] Narrative* Problem [...] of this encounter (statuses as of 11/20/2021) [facility] Narrative* Problem [...] of this encounter (statuses as of 12/12/2021) [facility] Narrative* Problem [...] of this encounter (statuses as of 12/13/2021) [facility] Narrative* Problem [...] of this encounter (statuses as of 12/14/2021) [facility] Narrative* Problem [...] of this encounter (statuses as of 01/01/2022) [facility] Narrative* Problem [...] of this encounter (statuses as of 01/02/2022) [facility] Narrative* Problem [...] of this encounter (statuses as of 01/02/2022) [facility] Narrative* Problem [...] of this encounter (statuses as of 01/06/2022) [facility] Narrative* Problem [...] of this encounter (statuses as of 01/10/2022) [facility] Narrative* Problem [...] of this encounter (statuses as of 01/11/2022) [facility]* Problem [...] of this encounter (statuses as of 01/12/2022) [facility]* Problem [...] of this encounter (statuses as of 01/12/2022) [facility]* Problem [...] of this encounter (statuses as of 01/19/2022) [facility]* Problem [...] of this encounter (statuses as of 01/23/2022) [facility]* Problem [...] of this encounter (statuses as of 01/25/2022) [facility]* Problem [...] of this encounter (statuses as of 01/30/2022) [facility]* Problem [...] of this encounter (statuses as of 02/01/2022) [facility]* Problem [...] of this encounter (statuses as of 02/02/2022) [facility]* Problem [...] of this encounter (statuses as of 02/02/2022) [facility]* Problem [...] of this encounter (statuses as of 02/06/2022) [facility]* Problem [...] of this encounter (statuses as of 02/09/2022) [facility]* Problem [...] of this encounter (statuses as of 02/14/2022) [facility]* Problem [...] of this encounter (statuses as of 02/26/2022) [facility]* Problem [...] of this encounter (statuses as of 03/02/2022) [facility]* Problem [...] of this encounter (statuses as of 03/05/2022) [facility]* Problem [...] of this encounter (statuses as of 03/07/2022) [facility]* Problem [...] of this encounter (statuses as of 03/08/2022) [facility]* Problem [...] of this encounter (statuses as of 03/09/2022) [facility]* Problem [...] of this encounter (statuses as of 03/12/2022) [facility]* Problem [...] of this encounter (statuses as of 03/16/2022) [facility]* Problem [...] of this encounter (statuses as of 03/23/2022) [facility]* Problem [...] of this encounter (statuses as of 04/03/2022) [facility]* Problem [...] of this encounter (statuses as of 04/04/2022) [facility]* Problem [...] of this encounter (statuses as of 04/06/2022) [facility]* Problem [...] of this encounter (statuses as of 04/17/2022) [facility]* Problem [...] of this encounter (statuses as of 04/17/2022) [facility]* Problem [...] of this encounter (statuses as of 04/19/2022) [facility]* Problem [...] of this encounter (statuses as of 05/16/2022) [facility]* Problem [...] of this encounter (statuses as of 06/25/2022) [facility]* Problem [...] of this encounter (statuses as of 07/14/2022) [facility]* Problem [...] of this encounter (statuses as of 07/15/2022) [facility]* Problem [...] of this encounter (statuses as of 07/18/2022) [facility]* Problem [...] of this encounter (statuses as of 07/18/2022) [facility]* Problem [...] of this encounter (statuses as of 07/19/2022) [facility]* Problem [...] of this encounter (statuses as of 07/20/2022) [facility]* Problem [...] of this encounter (statuses as of 07/25/2022) [facility]* Problem [...] of this encounter (statuses as of 07/26/2022) [facility]* Problem [...] of this encounter (statuses as of 07/27/2022) [facility]* Problem [...] of this encounter (statuses as of 07/31/2022) [facility]* Problem [...] of this encounter (statuses as of 08/06/2022) [facility]* Problem [...] of this encounter (statuses as of 08/07/2022) [address]13-2015 History of Past illness Narrative* Problem [...] of this encounter (statuses as of 08/09/2022) [address]13[address]2015 History of Past illness Narrative* Problem [...] of this encounter (statuses as of 08/14/2022) [facility]* Problem [...] of this encounter (statuses as of 08/16/2022) [facility]* Problem [...] of this encounter (statuses as of 08/28/2022) [facility]* Problem [...] of this encounter (statuses as of 09/07/2022) [facility]* Problem [...] of this encounter (statuses as of 09/09/2022) [facility]* Problem [...] of this encounter (statuses as of 09/25/2022) [facility]* Problem [...] of this encounter (statuses as of 10/23/2022) [facility]* Problem [...] of this encounter (statuses as of 11/20/2022) [facility]* Problem [...] of this encounter (statuses as of 11/20/2022) [facility]* Problem [...] of this encounter (statuses as of 12/13/2022) [facility]* Problem [...] of this encounter (statuses as of 12/14/2022) [facility]* Problem [...] of this encounter (statuses as of 12/18/2022) [facility]* Problem [...] of this encounter (statuses as of 12/25/2022) [facility]* Problem [...] of this encounter (statuses as of 12/27/2022) [facility]* Problem [...] of this encounter (statuses as of 12/31/2022) [facility] Problem [...] of this encounter (statuses as of 01/03/2023) [facility] Problem [...] of this encounter (statuses as of 01/04/2023) [facility]* Problem [...] of this encounter (statuses as of 01/04/2023) [facility]* Problem [...] of this encounter (statuses as of 01/25/2023) [facility]* Problem [...] of this encounter (statuses as of 01/29/2023) [facility] note* Diagnosis Type 2 diabetes mellitus with diabetic neuropathy, with long-term current use of insulin (HCC) Status post aortic valve repair Other postprocedural status Chronic anticoagulation Long-term (current) use of anticoagulants documented [facility] encounter [facility]* Diagnosis Colon cancer screening Special screening [...] Diagnosis COVID-19- Primary [facility] Diagnosis Hyperlipidemia with target LDL less than 100- Primary Other and unspecified hyperlipidemia Primary hypertension Unspecified essential hypertension Thoracic aortic aneurysm without rupture (HCC) Thoracic aneurysm without mention of rupture Coronary artery disease involving [place] coronary artery of [place] heart without angina pectoris Syncope, unspecified syncope type Obesity, Class II, BMI 35-39.9 Obesity, unspecified [facility]* Diagnosis Syncope and collapse- Primary Altered mental status, unspecified altered mental status type Urinary incontinence, unspecified type Benign prostatic hyperplasia with nocturia Nocturia Vitamin D deficiency, unspecified Wound of left lower extremity, initial encounter Encounter for screening for malignant neoplasm of prostate Special screening for malignant neoplasm of prostate [facility] Diagnosis Abnormality of gait due to impairment of balance- Primary Altered mental status, unspecified altered mental status type [facility]* Diagnosis Chronic anticoagulation Long-term (current) use of anticoagulants Thoracic aortic aneurysm without rupture (HCC) Thoracic aneurysm without mention of rupture Status post aortic valve repair Other postprocedural status [facility]* Diagnosis Type 2 diabetes mellitus with diabetic neuropathy, with long-term current use of insulin (HCC)- Primary [facility] Diagnosis Abnormality of gait due [...] vitamin D deficiency [facility]* Diagnosis Type 2 diabetes mellitus with stage 3 chronic kidney disease, with long-term current use of insulin (HCC) [facility] Diagnosis Abnormality of gait due to impairment of balance- Primary [facility]* Diagnosis Type 2 diabetes mellitus with diabetic neuropathy, with long-term current use of insulin ([facility]) [facility] Diagnosis Abnormality of gait due [...] Abnormal coagulation profile ANTHONY (acute kidney injury) ([facility]) Acute kidney failure, unspecified [facility] Diagnosis Abnormality of gait due [...] polyneuropathy associated with type 2 diabetes mellitus ([facility]) [facility]* Diagnosis Generalized weakness- Primary Other malaise and fatigue Encounter for immunization Need for other specified prophylactic vaccination against single bacterial disease Mild depression Depressive disorder, not elsewhere classified [facility] Diagnosis Generalized anxiety disorder- Primary [...] mellitus (HCC) NSTEMI (non-ST elevated myocardial infarction) ([facility]) Acute myocardial infarction, subendocardial infarction, [...] disease, with long-term current use of insulin ([facility]) 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, macular edema presence unspecified ([facility]) [facility] Diagnosis Driving safety issue- Primary Other specified personal history presenting hazards to health [facility]* Diagnosis Onychomycosis- Primary Dermatophytosis of nail Pain in toe of left foot Pain in limb Amputated toe of right foot ([facility]) Diabetic polyneuropathy associated with type 2 diabetes mellitus ([facility]) [facility] Diagnosis Spinal stenosis, lumbar region, without neurogenic claudication- Primary Primary osteoarthritis of both knees Primary localized osteoarthrosis, lower leg [facility]* Diagnosis Spinal stenosis, lumbar region, without neurogenic claudication- Primary Primary osteoarthritis of both knees Primary localized osteoarthrosis, lower leg [facility] Diagnosis Spinal stenosis, lumbar region, without neurogenic claudication- Primary Primary osteoarthritis of both knees Primary localized osteoarthrosis, lower leg [facility]* Diagnosis Spinal stenosis, lumbar region, without neurogenic claudication- Primary Primary osteoarthritis of both knees Primary localized osteoarthrosis, lower leg [facility]* Diagnosis Spinal stenosis, lumbar region, without neurogenic claudication- Primary Primary osteoarthritis of both knees Primary localized osteoarthrosis, lower leg [facility]* Diagnosis Spinal stenosis, lumbar region, without neurogenic claudication- Primary Primary osteoarthritis of both knees Primary localized osteoarthrosis, lower leg documented in this encounter [place] [facility] Narrative No data available for this section [facility] Hospital Discharge instructions No data available for this section [facility] Progress note No data available for this section [facility] Reason for referral (narrative)* Outpatient Procedure (Routine) - Closed Specialty Diagnoses / Procedures Referred By Contac t Referred To Contact [facility] Diagnoses Colon cancer screening Procedures COLONOSCOPY SCREENING COLONOSCOPY FLX DX W/COLLJ SPEC WHEN PFMarcella Cho PA-C [address] [place] [address] [facility] [place] [address] [phone] Referral ID Status Reason Start Date Expiration Date V isits Requested Visits Authorized [id number] Closed Auto-Generate d Referral 08/16/2021 08/16/2022 1 1 [facility] for referral (narrative)* Outpatient Procedure (Routine) - Closed Specialty Diagnoses / Procedures Referred By Contac t Referred To Contact [facility] Diagnoses Colon cancer screening Procedures COLONOSCOPY SCREENING COLONOSCOPY FLX DX W/COLLJ SPEC WHEN Marcella Alatorre PA-C [address] [place] [address] [facility] [place] [address] [place] [id number] Referral ID Status Reason Start Date Expiration Date V isits Requested Visits Authorized [id number] Closed Auto-Generate d Referral 08/16/2021 08/16/2022 1 1 [facility] for visit Narrative* Outpatient Procedure (Routine) - Closed Specialty Diagnoses / Procedures Referred By Contac t Referred To Contact [facility] Diagnoses Colon cancer screening Procedures COLONOSCOPY SCREENING COLONOSCOPY FLX DX W/COLLJ SPEC WHEN PFMarcella Cho PA-C [address] [place] [address] [facility] [address] [place] [id number] Referral ID Status Reason Start Date Expiration Date V isits Requested Visits Authorized [id number] Closed Auto-Generate d Referral 08/16/2021 08/16/2022 1 1 [facility] Procedure (Routine) - Closed Specialty Diagnoses / Procedures Referred By Linn carrillo Referred [facility] Diagnoses Chronic anticoagulation Thoracic aortic aneurysm without rupture (HCC) Status post aortic valve repair Procedures ECHO TTE W/DOPPLER, COMPLETE Justina Hadley, INSTRUCTOR WARPER.NETWORK OPERATIONS PROJECT MANAGER [address] [place] [address] [facility] [address] [address] Referral ID Status Reason Start Date Expiration Date V isits Requested Visits Authorized [id number] Closed Auto-Generate d Referral 07/03/2021 07/03/2022 1 1 [facility] Advance Directives No Advanced Directives Records FoundDocuments on File Type Date Recorded 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 Advance Directive(s) 09/12/2021 7:14 AM Documents on File Type Date Recorded 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 Advance Directive(s) 09/12/2021 7:14 AM [...] Diagnoses Driving safety issue Procedures CONSULT TO CAUSTIC LOADER OCCUPATIONAL THERAPY EVAL HIGH COMPLEX 60 MINS Tamie Kaur MD [address] [place] [address] [facility] [place] [address] [place] [id number] Referral ID Status Reason Start Date Expiration Date Visits Requested Visits Authorized [id number] Authorized PCP Requested Referral Auto-Generate d Referral 09/07/2022 09/07/2023 99 99 Specialty Diagnoses / Procedures Referred By Contac t Referred To Contact [facility] Diagnoses Polyneuropathy Procedures CONSULT TO PHYSICAL THERAPY PHYSICAL THERAPY EVALUATION HIGH COMPLEX 45 MINS Tamie Kaur MD [address] [place] [address] [facility] [address] [address] Referral ID Status Reason Start Date Expiration Date Visits Requested Visits Authorized [id number] Authorized PCP Requested Referral Auto-Generate d Referral 04/17/2022 04/17/2023 99 99 Specialty Diagnoses / Procedures Referred By Contac t Referred To Contact Psychology Diagnoses Generalized anxiety disorder Procedures CONSULT TO PSYCHOLOGY OFFICE/OUTPATIENT [facility] 60-74 MINUTES Tamie Kaur MD [address] [phone] Referral ID Status Reason Start Date Expiration Date Visits Requested Visits Authorized [id number] Pending Review PCP Requested Referral 04/17/2022 04/17/2023 1 1 Specialty Diagnoses / Procedures Referred By Contac t Referred To Contact Podiatry Diagnoses Type 2 diabetes mellitus with diabetic neuropathy, with long-term current use of insulin (HCC) Procedures CONSULT TO PODIATRY OFFICE/OUTPATIENT [facility] 60-74 MINUTES PodlogRoselia hernandez APRN.NETWORK OPERATIONS PROJECT MANAGER [address] [place] [address] Referral ID Status Reason Start Date Expiration Date Visits Requested Visits Authorized [id number] Authorized PCP Requested Referral 01/12/2022 01/11/2023 1 1 Specialty Diagnoses / Procedures Referred By Contac t Referred To Contact [facility] Diagnoses Altered mental status, unspecified altered mental status type Procedures CONSULT TO SPEECH THERAPY OFFICE/OUTPATIENT [facility] 60-74 MINUTES Tamie Kaur MD [address] [place] [address] [facility] [address] [address] Referral ID Status Reason Start Date Expiration Date Visits Requested Visits Authorized [id number] Authorized Auto-Generat ed Referral 01/05/2022 01/05/2023 99 99 Specialty Diagnoses / Procedures Referred By Contac t Referred To Contact [facility] Diagnoses Abnormality of gait due to impairment of balance Procedures CONSULT TO PHYSICAL THERAPY PHYSICAL THERAPY EVALUATION HIGH COMPLEX 45 MINS Tamie Kaur MD [address] [place] [address] [facility] [place] [address] Referral ID Status Reason Start Date Expiration Date Visits Requested Visits Authorized [id number] Authorized PCP Requested Referral Auto-Generate d Referral 01/05/2022 01/05/2023 99 99 Specialty Diagnoses / Procedures Referred By Contac t Referred To Contact [facility] Diagnoses Altered mental status, unspecified altered mental status type Procedures EPIL EEG ROUTINE ELECTROENCEPHALOGRAM REC COMA/SLEEP ONLY Tamie Kaur MD [address] [place] [address] [place] [address] Referral ID Status Reason Start Date Expiration Date Visits Requested Visits Authorized [id number] Authorized Auto-Generat ed Referral 01/05/2022 01/05/2023 1 1 Specialty Diagnoses / Procedures Referred By Contac t Referred To Contact Neurology Diagnoses Altered mental status, unspecified altered mental status type Procedures CONSULT TO NEUROLOGY OFFICE/OUTPATIENT [facility] MDM 60-74 MINUTES Abdulaziz Caldera MD [address] [place] [address] Referral ID Status Reason Start Date Expiration Date Visits Requested Visits Authorized [id number] Authorized PCP Requested Referral 01/01/2022 01/01/2023 1 [...] or prosecute any alcohol or drug abuse patient.[facility] the event this information is protected by the Federal Confidentiality of Alcohol and Drug Abuse Patient Records regulations: The Federal rules restrict any use of the information to criminally investigate or prosecute any alcohol or drug abuse patient.[facility] the event this information is protected by the Federal Confidentiality of Alcohol and Drug Abuse Patient Records regulations: The Federal rules restrict any use of the information to criminally investigate or prosecute any alcohol or drug abuse patient.[facility] the event this information is protected by the Federal Confidentiality of Alcohol and Drug Abuse Patient Records regulations: The Federal rules restrict any use of the information to criminally investigate or prosecute any alcohol or drug abuse patient.[facility] the event this information is protected by the Federal Confidentiality of Alcohol and Drug Abuse Patient Records regulations: The Federal rules restrict any use of the information to criminally investigate or prosecute any alcohol or drug abuse patient.[facility] the event this information is protected by the Federal Confidentiality of Alcohol and Drug Abuse Patient Records regulations: The Federal rules restrict any use of the information to criminally investigate or prosecute any alcohol or drug abuse patient.[facility] the event this information is protected by the Federal Confidentiality of Alcohol and Drug Abuse Patient Records regulations: The Federal rules restrict any use of the information to criminally investigate or prosecute any alcohol or drug abuse patient.[facility] the event this information is protected by the Federal Confidentiality of Alcohol and Drug Abuse Patient Records regulations: The Federal rules restrict any use of the information to criminally investigate or prosecute any alcohol or drug abuse patient.[facility] the event this information is protected by the Federal Confidentiality of Alcohol and Drug Abuse Patient Records regulations: The Federal rules restrict any use of the information to criminally investigate or prosecute any alcohol or drug abuse patient.[facility] the event this information is protected by the Federal Confidentiality of Alcohol and Drug Abuse Patient Records regulations: The Federal rules restrict any use of the information to criminally investigate or prosecute any alcohol or drug abuse patient.[facility] the event this information is protected by the Federal Confidentiality of Alcohol and Drug Abuse Patient Records regulations: The Federal rules restrict any use of the information to criminally investigate or prosecute any alcohol or drug abuse patient.[facility] the event this information is protected by the Federal Confidentiality of Alcohol and Drug Abuse Patient Records regulations: The Federal rules restrict any use of the information to criminally investigate or prosecute any alcohol or drug abuse patient.[facility] the event this information is protected by the Federal Confidentiality of Alcohol and Drug Abuse Patient Records regulations: The Federal rules restrict any use of the information to criminally investigate or prosecute any alcohol or drug abuse patient.[facility] the event this information is protected by the Federal Confidentiality of Alcohol and Drug Abuse Patient Records regulations: The Federal rules restrict any use of the information to criminally investigate or prosecute any alcohol or drug abuse patient.[facility] the event this information is protected by the Federal Confidentiality of Alcohol and Drug Abuse Patient Records regulations: The Federal rules restrict any use of the information to criminally investigate or prosecute any alcohol or drug abuse patient.[facility] the event this information is protected by the Federal Confidentiality of Alcohol and Drug Abuse Patient Records regulations: The Federal rules restrict any use of the information to criminally investigate or prosecute any alcohol or drug abuse patient.[facility] the event this information is protected by the Federal Confidentiality of Alcohol and Drug Abuse Patient Records regulations: The Federal rules restrict any use of the information to criminally investigate or prosecute any alcohol or drug abuse patient.[facility] the event this information is protected by the Federal Confidentiality of Alcohol and Drug Abuse Patient Records regulations: The Federal rules restrict any use of the information to criminally investigate or prosecute any alcohol or drug abuse patient.[facility] the event this information is protected by the Federal Confidentiality of Alcohol and Drug Abuse Patient Records regulations: The Federal rules restrict any use of the information to criminally investigate or prosecute any alcohol or drug abuse patient.[facility] the event this information is protected by the Federal Confidentiality of Alcohol and Drug Abuse Patient Records regulations: The Federal rules restrict any use of the information to criminally investigate or prosecute any alcohol or drug abuse patient.[facility] the event this information is protected by the Federal Confidentiality of Alcohol and Drug Abuse Patient Records regulations: The Federal rules restrict any use of the information to criminally investigate or prosecute any alcohol or drug abuse patient.[facility] the event this information is protected by the Federal Confidentiality of Alcohol and Drug Abuse Patient Records regulations: The Federal rules restrict any use of the information to criminally investigate or prosecute any alcohol or drug abuse patient.[facility] the event this information is protected by the Federal Confidentiality of Alcohol and Drug Abuse Patient Records regulations: The Federal rules restrict any use of the information to criminally investigate or prosecute any alcohol or drug abuse patient.[facility] the event this information is protected by the Federal Confidentiality of Alcohol and Drug Abuse Patient Records regulations: The Federal rules restrict any use of the information to criminally investigate or prosecute any alcohol or drug abuse patient.[facility] the event this information is protected by the Federal Confidentiality of Alcohol and Drug Abuse Patient Records regulations: The Federal rules restrict any use of the information to criminally investigate or prosecute any alcohol or drug abuse patient.[facility] the event this information is protected by the Federal Confidentiality of Alcohol and Drug Abuse Patient Records regulations: The Federal rules restrict any use of the information to criminally investigate or prosecute any alcohol or drug abuse patient.[facility] the event this information is protected by the Federal Confidentiality of Alcohol and Drug Abuse Patient Records regulations: The Federal rules restrict any use of the information to criminally investigate or prosecute any alcohol or drug abuse patient.[facility] the event this information is protected by the Federal Confidentiality of Alcohol and Drug Abuse Patient Records regulations: The Federal rules restrict any use of the information to criminally investigate or prosecute any alcohol or drug abuse patient.[facility] the event this information is protected by the Federal Confidentiality of Alcohol and Drug Abuse Patient Records regulations: The Federal rules restrict any use of the information to criminally investigate or prosecute any alcohol or drug abuse patient.[facility]In the event this information is protected by the Federal Confidentiality of Alcohol and Drug Abuse Patient Records regulations: The Federal rules restrict any use of the information to criminally investigate or prosecute any alcohol or drug abuse patient.[facility] the event this information is protected by the Federal Confidentiality of Alcohol and Drug Abuse Patient Records regulations: The Federal rules restrict any use of the information to criminally investigate or prosecute any alcohol or drug abuse patient.[facility]In the event this information is protected by the Federal Confidentiality of Alcohol and Drug Abuse Patient Records regulations: The Federal rules restrict any use of the information to criminally investigate or prosecute any alcohol or drug abuse patient.[facility] the event this information is protected by the Federal Confidentiality of Alcohol and Drug Abuse Patient Records regulations: The Federal rules restrict any use of the information to criminally investigate or prosecute any alcohol or drug abuse patient.[facility] the event this information is protected by the Federal Confidentiality of Alcohol and Drug Abuse Patient Records regulations: The Federal rules restrict any use of the information to criminally investigate or prosecute any alcohol or drug abuse patient.[facility]In the event this information is protected by the Federal Confidentiality of Alcohol and Drug Abuse Patient Records regulations: The Federal rules restrict any use of the information to criminally investigate or prosecute any alcohol or drug abuse patient.[facility]In the event this information is protected by the Federal Confidentiality of Alcohol and Drug Abuse Patient Records regulations: The Federal rules restrict any use of the information to criminally investigate or prosecute any alcohol or drug abuse patient.[facility]In the event this information is protected by the Federal Confidentiality of Alcohol and Drug Abuse Patient Records regulations: The Federal rules restrict any use of the information to criminally investigate or prosecute any alcohol or drug abuse patient.[facility]In the event this information is protected by the Federal Confidentiality of Alcohol and Drug Abuse Patient Records regulations: The Federal rules restrict any use of the information to criminally investigate or prosecute any alcohol or drug abuse patient.[facility]In the event this information is protected by the Federal Confidentiality of Alcohol and Drug Abuse Patient Records regulations: The Federal rules restrict any use of the information to criminally investigate or prosecute any alcohol or drug abuse patient.[facility]In the event this information is protected by the Federal Confidentiality of Alcohol and Drug Abuse Patient Records regulations: The Federal rules restrict any use of the information to criminally investigate or prosecute any alcohol or drug abuse patient.[facility]In the event this information is protected by the Federal Confidentiality of Alcohol and Drug Abuse Patient Records regulations: The Federal rules restrict any use of the information to criminally investigate or prosecute any alcohol or drug abuse patient.[facility]In the event this information is protected by the Federal Confidentiality of Alcohol and Drug Abuse Patient Records regulations: The Federal rules restrict any use of the information to criminally investigate or prosecute any alcohol or drug abuse patient.[facility]In the event this information is protected by the Federal Confidentiality of Alcohol and Drug Abuse Patient Records regulations: The Federal rules restrict any use of the information to criminally investigate or prosecute any alcohol or drug abuse patient.[facility]In the event this information is protected by the Federal Confidentiality of Alcohol and Drug Abuse Patient Records regulations: The Federal rules restrict any use of the information to criminally investigate or prosecute any alcohol or drug abuse patient.[facility]In the event this information is protected by the Federal Confidentiality of Alcohol and Drug Abuse Patient Records regulations: The Federal rules restrict any use of the information to criminally investigate or prosecute any alcohol or drug abuse patient.[facility]In the event this information is protected by the Federal Confidentiality of Alcohol and Drug Abuse Patient Records regulations: The Federal rules restrict any use of the information to criminally investigate or prosecute any alcohol or drug abuse patient.[facility]In the event this information is protected by the Federal Confidentiality of Alcohol and Drug Abuse Patient Records regulations: The Federal rules restrict any use of the information to criminally investigate or prosecute any alcohol or drug abuse patient.[facility]In the event this information is protected by the Federal Confidentiality of Alcohol and Drug Abuse Patient Records regulations: The Federal rules restrict any use of the information to criminally investigate or prosecute any alcohol or drug abuse patient.[facility]In the event this information is protected by the Federal Confidentiality of Alcohol and Drug Abuse Patient Records regulations: The Federal rules restrict any use of the information to criminally investigate or prosecute any alcohol or drug abuse patient.[facility]In the event this information is protected by the Federal Confidentiality of Alcohol and Drug Abuse Patient Records regulations: The Federal rules restrict any use of the information to criminally investigate or prosecute any alcohol or drug abuse patient.[facility]In the event this information is protected by the Federal Confidentiality of Alcohol and Drug Abuse Patient Records regulations: The Federal rules restrict any use of the information to criminally investigate or prosecute any alcohol or drug abuse patient.[facility] the event this information is protected by the Federal Confidentiality of Alcohol and Drug Abuse Patient Records regulations: The Federal rules restrict any use of the information to criminally investigate or prosecute any alcohol or drug abuse patient.[facility]In the event this information is protected by the Federal Confidentiality of Alcohol and Drug Abuse Patient Records regulations: The Federal rules restrict any use of the information to criminally investigate or prosecute any alcohol or drug abuse patient.[facility]In the event this information is protected by the Federal Confidentiality of Alcohol and Drug Abuse Patient Records regulations: The Federal rules restrict any use of the information to criminally investigate or prosecute any alcohol or drug abuse patient.[facility]In the event this information is protected by the Federal Confidentiality of Alcohol and Drug Abuse Patient Records regulations: The Federal rules restrict any use of the information to criminally investigate or prosecute any alcohol or drug abuse patient.[facility] the event this information is protected by the Federal Confidentiality of Alcohol and Drug Abuse Patient Records regulations: The Federal rules restrict any use of the information to criminally investigate or prosecute any alcohol or drug abuse patient.[facility]In the event this information is protected by the Federal Confidentiality of Alcohol and Drug Abuse Patient Records regulations: The Federal rules restrict any use of the information to criminally investigate or prosecute any alcohol or drug abuse patient.[facility]In the event this information is protected by the Federal Confidentiality of Alcohol and Drug Abuse Patient Records regulations: The Federal rules restrict any use of the information to criminally investigate or prosecute any alcohol or drug abuse patient.[facility]In the event this information is protected by the Federal Confidentiality of Alcohol and Drug Abuse Patient Records regulations: The Federal rules restrict any use of the information to criminally investigate or prosecute any alcohol or drug abuse patient.[facility]In the event this information is protected by the Federal Confidentiality of Alcohol and Drug Abuse Patient Records regulations: The Federal rules restrict any use of the information to criminally investigate or prosecute any alcohol or drug abuse patient.[facility]In the event this information is protected by the Federal Confidentiality of Alcohol and Drug Abuse Patient Records regulations: The Federal rules restrict any use of the information to criminally investigate or prosecute any alcohol or drug abuse patient.[facility]In the event this information is protected by the Federal Confidentiality of Alcohol and Drug Abuse Patient Records regulations: The Federal rules restrict any use of the information to criminally investigate or prosecute any alcohol or drug abuse patient.[facility] the event this information is protected by the Federal Confidentiality of Alcohol and Drug Abuse Patient Records regulations: The Federal rules restrict any use of the information to criminally investigate or prosecute any alcohol or drug abuse patient.[facility]In the event this information is protected by the Federal Confidentiality of Alcohol and Drug Abuse Patient Records regulations: The Federal rules restrict any use of the information to criminally investigate or prosecute any alcohol or drug abuse patient.[facility] HospitalIn the event this information is protected by the Federal Confidentiality of Alcohol and Drug Abuse Patient Records regulations: The Federal rules restrict any use of the information to criminally investigate or prosecute any alcohol or drug abuse patient.[facility]In the event this information is protected by the Federal Confidentiality of Alcohol and Drug Abuse Patient Records regulations: The Federal rules restrict any use of the information to criminally investigate or prosecute any alcohol or drug abuse patient.[facility] HospitalIn the event this information is protected by the Federal Confidentiality of Alcohol and Drug Abuse Patient Records regulations: The Federal rules restrict any use of the information to criminally investigate or prosecute any alcohol or drug abuse patient.[facility] HospitalIn the event this information is protected by the Federal Confidentiality of Alcohol and Drug Abuse Patient Records regulations: The Federal rules restrict any use of the information to criminally investigate or prosecute any alcohol or drug abuse patient.[facility] HospitalIn the event this information is protected by the Federal Confidentiality of Alcohol and Drug Abuse Patient Records regulations: The Federal rules restrict any use of the information to criminally investigate or prosecute any alcohol or drug abuse patient.[facility]In the event this information is protected by the Federal Confidentiality of Alcohol and Drug Abuse Patient Records regulations: The Federal rules restrict any use of the information to criminally investigate or prosecute any alcohol or drug abuse patient.[facility] HospitalIn the event this information is protected by the Federal Confidentiality of Alcohol and Drug Abuse Patient Records regulations: The Federal rules restrict any use of the information to criminally investigate or prosecute any alcohol or drug abuse patient.[facility] HospitalIn the event this information is protected by the Federal Confidentiality of Alcohol and Drug Abuse Patient Records regulations: The Federal rules restrict any use of the information to criminally investigate or prosecute any alcohol or drug abuse patient.[facility] HospitalIn the event this information is protected by the Federal Confidentiality of Alcohol and Drug Abuse Patient Records regulations: The Federal rules restrict any use of the information to criminally investigate or prosecute any alcohol or drug abuse patient.[facility] HospitalIn the event this information is protected by the Federal Confidentiality of Alcohol and Drug Abuse Patient Records regulations: The Federal rules restrict any use of the information to criminally investigate or prosecute any alcohol or drug abuse patient.[facility] HospitalIn the event this information is protected by the Federal Confidentiality of Alcohol and Drug Abuse Patient Records regulations: The Federal rules restrict any use of the information to criminally investigate or prosecute any alcohol or drug abuse patient.[facility] HospitalIn the event this information is protected by the Federal Confidentiality of Alcohol and Drug Abuse Patient Records regulations: The Federal rules restrict any use of the information to criminally investigate or prosecute any alcohol or drug abuse patient.[facility] HospitalIn the event this information is protected by the Federal Confidentiality of Alcohol and Drug Abuse Patient Records regulations: The Federal rules restrict any use of the information to criminally investigate or prosecute any alcohol or drug abuse patient.[facility] HospitalIn the event this information is protected by the Federal Confidentiality of Alcohol and Drug Abuse Patient Records regulations: The Federal rules restrict any use of the information to criminally investigate or prosecute any alcohol or drug abuse patient.[facility] HospitalIn the event this information is protected by the Federal Confidentiality of Alcohol and Drug Abuse Patient Records regulations: The Federal rules restrict any use of the information to criminally investigate or prosecute any alcohol or drug abuse patient.[facility] Reason for Visit (unrecogniz ed section and content) Specialty Diagnoses / Procedures Referred By Linn carrillo Referred To Contact [facility] Diagnoses Abnormality of gait due to impairment of balance Procedures CONSULT TO PHYSICAL THERAPY PHYSICAL THERAPY EVALUATION HIGH COMPLEX 45 MINS Tamie Kaur MD [address] [place] [address] [facility] [address] [address] Referral ID Status Reason Start Date Expiration Date Visits Requested Visits Authorized [id number] Authorized PCP Requested Referral Auto-Generate d Referral [...] 6 mo Reason Comments Hospital Follow Up [facility] discharged Reason Comments Results Reason Comments Consult altered mental statu s Specialty Diagnoses / Procedures Referred By Linn carrillo Referred To Contact Neurology Diagnoses Altered mental status, unspecified altered mental status type Procedures CONSULT TO NEUROLOGY OFFICE/OUTPATIENT [facility] MDM 60-74 MINUTES Abdulaziz Caldera MD [address] [place] [address] Referral ID Status Reason Start Date Expiration Date V isits Requested Visits Authorized [id number] Closed PCP Requested Referral 01/01/2022 01/01/2023 1 [...] Nursing Plan of Care Update Reason Comments [facility] PT POC Reason Comments OT plan of care Reason Onset Date Comments Refill Request 07/25/2022 Reason Comments Home Health-Nursing Update Reason Onset Date Comments Anticoagulation 07/31/2022 Specialty Diagnoses / Procedures Referred By Linn carrillo Referred To Contact Ent - Otolaryngology Diagnoses Chronic frontal sinusitis Procedures CONSULT TO ENT OFFICE/OUTPATIENT NEW HIGH MDM 60-74 MINUTES Abdulaziz Caldera MD [address] [place] [address] Referral ID Status Reason Start Date Expiration Date V isits Requested Visits Authorized [id number] Closed PCP Requested Referral 07/12/2022 07/12/2023 1 [...] Care Teams (unrecognized sec tion and content) Laminating Press Operator Relationship Specialty Start Date End Date Abdulaziz Caldera MD [address] [place] [address] PCP - General Family Practice 11/23/20 Laminating Press Operator Relationship Specialty Start Date End Date Abdulaziz Caldera MD [address] [facility] [place] [address] PCP - General Family Practice 11/23/20 Laminating Press Operator Relationship Specialty Start Date End Date Abdulaziz Caldera MD [address] [facility] [place] [address] PCP - General Family Practice 11/23/20 Laminating Press Operator Relationship Specialty Start Date End Date Abdulaziz Caldera MD [address] [facility] [place] [address] PCP - General Family Practice 11/23/20 Laminating Press Operator Relationship Specialty Start Date End Date Abdulaziz Caldera MD [facility] [place] [address] PCP - General Family Practice 11/23/20 Laminating Press Operator Relationship Specialty Start Date End Date Abdulaziz Caldera MD [address] [facility] [place] [address] PCP - General Family Practice 11/23/20 Laminating Press Operator Relationship Specialty Start Date End Date Abdulaziz Caldera MD [address] [facility] [place] [address] PCP - General Family Practice 11/23/20 Laminating Press Operator Relationship Specialty Start Date End Date Abdulaziz Caldera MD [address] [facility] [place] [address] PCP - General Family Practice 11/23/20 Laminating Press Operator Relationship Specialty Start Date End Date Abdulaziz Caldera MD [address] [facility] [place] [address] PCP - General Family Practice 11/23/20 Laminating Press Operator Relationship Specialty Start Date End Date Abdulaziz Caldera MD [address] [facility] [place] [address] PCP - General Family Practice 11/23/20 Laminating Press Operator Relationship Specialty Start Date End Date Abdulaziz Caldera MD [address] [facility] [place] [address] PCP - General Family Practice 11/23/20 Laminating Press Operator Relationship Specialty Start Date End Date Abdulaziz Caldera MD [address] [facility] [place] [address] PCP - General Family Practice 11/23/20 Laminating Press Operator Relationship Specialty Start Date End Date Abdulaziz Caldera MD [address] [facility] [place] [address] PCP - General Family Practice 11/23/20 Laminating Press Operator Relationship Specialty Start Date End Date Abdulaziz Caldera MD [address] [facility] [place] [address] PCP - General Family Practice 11/23/20 Laminating Press Operator Relationship Specialty Start Date End Date Abdulaziz Caldera MD [address] [facility] [place] [address] PCP - General Family Practice 11/23/20 Laminating Press Operator Relationship Specialty Start Date End Date Abdulaziz Caldera MD [address] [facility] [place] [address] PCP - General Family Practice 11/23/20 Laminating Press Operator Relationship Specialty Start Date End Date Abdulaziz Caldera MD [address] [facility] [place] [address] PCP - General Family Practice 11/23/20 Laminating Press Operator Relationship Specialty Start Date End Date Abdulaziz Caldera MD [address] [facility] [place] [address] PCP - General Family Practice 11/23/20 Laminating Press Operator Relationship Specialty Start Date End Date Abdulaziz Caldera MD [address] [facility] [place] [address] PCP - General Family Practice 11/23/20 Laminating Press Operator Relationship Specialty Start Date End Date Abdulaziz Caldera MD [address] [facility] [place] [address] PCP - General Family Practice 11/23/20 Laminating Press Operator Relationship Specialty Start Date End Date Abdulaziz Caldera MD [address] [facility] [place] [address] PCP - General Family Practice 11/23/20 Laminating Press Operator Relationship Specialty Start Date End Date Abdulaziz Caldera MD [address] [facility] [place] [address] PCP - General Family Medicine 11/23/20 Laminating Press Operator Relationship Specialty Start Date End Date Abdulaziz Caldera MD [address] [facility] [place] [address] PCP - General Family Medicine 11/23/20 Laminating Press Operator Relationship Specialty Start Date End Date Abdulaziz Caldera MD [address] [facility] [place] [address] PCP - General Family Medicine 11/23/20 Laminating Press Operator Relationship Specialty Start Date End Date Abdulaziz Caldera MD [address] [facility] [place] [address] PCP - General Family Medicine 11/23/20 Laminating Press Operator Relationship Specialty Start Date End Date Abdulaziz Caldera MD [address] [facility] [place] [address] PCP - General Family Medicine 11/23/20 Laminating Press Operator Relationship Specialty Start Date End Date Abdulaziz Caldera MD [address] [facility] [place] [address] PCP - General Family Medicine 11/23/20 Laminating Press Operator Relationship Specialty Start Date End Date Abdulaziz Caldera MD [address] [facility] [place] [address] PCP - General Family Medicine 11/23/20 Laminating Press Operator Relationship Specialty Start Date End Date Abdulaziz Caldera MD [address] [facility] [place] [address] PCP - General Family Medicine 11/23/20 Laminating Press Operator Relationship Specialty Start Date End Date Abdulaziz Caldera MD [address] [place] [address] PCP - General Family Medicine 11/23/20 Laminating Press Operator Relationship Specialty Start Date End Date Abdulaziz Caldera MD [address] [facility] [place] [address] PCP - General Family Medicine 11/23/20 Laminating Press Operator Relationship Specialty Start Date End Date Abdulaziz Caldera MD [address] [facility] [place] [address] PCP - General Family Medicine 11/23/20 Laminating Press Operator Relationship Specialty Start Date End Date Abdulaziz Caldera MD [address] [place] [address] PCP - General Family Medicine 11/23/20 Laminating Press Operator Relationship Specialty Start Date End Date Abdulaziz Caldera MD [address] [place] [address] PCP - General Family Medicine 11/23/20 Laminating Press Operator Relationship Specialty Start Date End Date Abdulaziz Caldera MD [address] [place] [address] PCP - General Family Medicine 11/23/20 Laminating Press Operator Relationship Specialty Start Date End Date Abdulaziz Caldera MD [address] [facility] [place] [address] PCP - General Family Medicine 11/23/20 Laminating Press Operator Relationship Specialty Start Date End Date Abdulaziz Caldera MD [address] [facility] [place] [address] PCP - General Family Medicine 11/23/20 Laminating Press Operator Relationship Specialty Start Date End Date Abdulaziz Caldera MD [address] [facility] [place] [address] PCP - General Family Medicine 11/23/20 Laminating Press Operator Relationship Specialty Start Date End Date Abdulaziz Caldera MD [address] [facility] [place] [address] PCP - General Family Medicine 11/23/20 Laminating Press Operator Relationship Specialty Start Date End Date Abdulaziz Caldera MD [address] [facility] [place] [address] PCP - General Family Medicine 11/23/20 Laminating Press Operator Relationship Specialty Start Date End Date Abdulaziz Caldera MD [address] [facility] [place] [address] PCP - General Family Medicine 11/23/20 Laminating Press Operator Relationship Specialty Start Date End Date Abdulaziz Caldera MD [address] [facility] [place] [address] PCP - General Family Medicine 11/23/20 (unrecognized sect ion and content) No Status Records FoundNo Status Records FoundNo Status Records FoundNo Status Records Found INFORMATION SOURCE (unrecogn ized section and content) DATE CREATED AUTHOR AUTHOR'S ORGANIZ ATION 02/04/2022 [facility] DATE CREATED AUTHOR AUTHOR'S ORGANIZ ATION 04/19/2022 [facility] ([place]) DATE CREATED AUTHOR AUTHOR'S DESTINY ATION 05/30/2023 [facility] FOR RECORDS PERTAINING TO PATIENTS WHO ARE [...] BE BASED ON THE PRIMARY CLINICAL RECORDS. [facility]. provides no warranty or guarantee of the accuracy or completeness of information in this document.
[2023-08-05 08:59] LABS: INR Fingerstick 1.9; Prothrombin Time Fingerstick 20.7 SEC (11.7-14.9)
== END ==
LOC: OLS.ACH 05:00
PROVIDERS: PCP Family Medicine; Visit Provider Internal Medicine
DX: I48.0 Paroxysmal atrial fibrillation (principal); Z79.01 Long term (current) use of anticoagulants
CPT/HCPCS: 36416; 85610

== ENCOUNTER → 2023-08-12 | Outpatient (REF) | payer MEDICARE, OTHER, SELFPAY ==
--- OUTSIDE RECORDS SUMMARY | 2023-08-12 04:16 | XMS RPT_ITS | CCD ---
Author Name Unknown Address [address] [place] [address] Organization [facility] Care Team Providers Care Office Clinician Name Role Phone Abdulaziz Caldera MD Primary [...] Care Unavailab ABDULAZIZ Zuniga Attending Unavailab ABDULAZIZ Zungia Primary Care Unavailab ABDULAZIZ Zuniga Referring Unavailab ABDULAZIZ Zuniga Primary Care Unavailab ABDULAZIZ Zuniga Referring Unavailab ABDULAZIZ Zuniga Primary Care Unavailab BOBBI Sanchez Referring Unavailable BOBBI GARCIA Attending Unavailable ABDULAZIZ CALDERA Primary Care Unavailab ABDULAZIZ Zuniga Referring Unavailab ABDULAZIZ Zuniga Primary Care Unavailab ABDULAZIZ Zuniga Referring Unavailab ABDULAZIZ Zuniga Primary Care Unavailab TAMIE Campos Attending Unavailable ABDULAZIZ CALDERA Primary Care Unavailab le TESTRAMINDA ACEVEDO Attending Unavailable ABDULAZIZ CALDERA Primary Care [...] pantoprazole; Translations: [PANTOPRAZOLE] Drug Allergy 03-12-2020 Diarrhea [facility] Medications Current Medications Medication Drug Class(es) [...] Coronary atherosclerosis; Translations: [Atherosclerotic heart disease of [place] coronary artery without angina pectoris] Chronic Diabetes [...] sources) Long-term current use of anticoagulant; Translations: [manager terminal (current) use of anticoagulants] Onset: 05-07-2018 11-06-2018 Episodic Other aftercare (1 source) manager terminal (current) use of anticoagulants; Translations: [Chronic anticoagulation] Onset: 11-06-2018 Episodic Other aftercare (1 source) skilled nursing (current) use of insulin; Translations: [Type 2 [...] Results Test Name Value Interpretation Reference Range [facility] Vital Signs Date Time Vital Sign Value Performing Clinician Scott quinn 09-07-2022 11:01-0500 Body height 185.4 cm Tamie Kaur MD Work Phone: [facility] 09-07-2022 11:01-0500 Body weight 113.4 kg Tamie Kaur MD Work Phone: [facility] 09-07-2022 11:01-0500 Diastolic blood pressure 57 mm[Hg] Tamie Kaur MD Work Phone: [facility] 09-07-2022 11:01-0500 Heart rate 64 /min Tamie Kaur MD Work Phone: [facility] 09-07-2022 11:01-0500 Respiratory rate 16 /min Tamie Kaur MD Work Phone: [facility] 09-07-2022 11:01-0500 SaO2% (BldA) [Mass fraction] 99 % Tamie Kaur MD Work Phone: [facility] 09-07-2022 11:01-0500 Systolic blood pressure 124 mm[Hg] Tamie Kaur MD Work Phone: [facility] 08-09-2022 16:35-0500 Body weight 113.4 kg Abdulaziz Caldera MD Work Phone: [facility] 08-09-2022 16:35-0500 Diastolic blood pressure 62 mm[Hg] Abdulaziz Caldera MD Work Phone: [facility] 08-09-2022 16:35-0500 Heart rate 64 /min Abdulaziz Caldera MD Work Phone: [facility] 08-09-2022 16:35-0500 Respiratory rate 16 /min Abdulaziz Caldera MD Work Phone: [facility] 08-09-2022 16:35-0500 SaO2% (BldA) [Mass fraction] 96 % Abdulaziz Caldera MD Work Phone: [facility] 08-09-2022 16:35-0500 Systolic blood pressure 112 mm[Hg] Abdulaziz Caldera MD Work Phone: [facility] 04-17-2022 11:23-0400 Body height 185.4 cm Tamie Kaur MD Work Phone: [facility] 04-17-2022 11:23-0400 Body weight 114.31 kg Tamie Kaur MD Work Phone: [facility] 04-17-2022 11:23-0400 Diastolic blood pressure 71 mm[Hg] Tamie Kaur MD Work Phone: [facility] 04-17-2022 11:23-0400 Heart rate 72 /min Tamie Kaur MD Work Phone: [facility] 04-17-2022 11:23-0400 Respiratory rate 18 /min Tamie Kaur MD Work Phone: [facility] 04-17-2022 11:23-0400 SaO2% (BldA) [Mass fraction] 98 % Tamie Kaur MD Work Phone: [facility] 04-17-2022 11:23-0400 Systolic blood pressure 116 mm[Hg] Tamie Kaur MD Work Phone: [facility] 04-16-2022 13:09-0400 Body height 185.4 cm Abdulaziz Caldera MD Work Phone: [facility] 04-16-2022 13:09-0400 Body weight 114.31 kg Abdulaziz Caldera MD Work Phone: [facility] 04-16-2022 13:09-0400 Diastolic blood pressure 72 mm[Hg] Abdulaziz Caldera MD Work Phone: [facility] 04-16-2022 13:09-0400 Heart rate 70 /min Abdulaziz Caldera MD Work Phone: [facility] 04-16-2022 13:09-0400 Respiratory rate 16 /min Abdulaziz Caldera MD Work Phone: [facility] 04-16-2022 13:09-0400 SaO2% (BldA) [Mass fraction] 98 % Abdulaziz Caldera MD Work Phone: [facility] 04-16-2022 13:09-0400 Systolic blood pressure 132 mm[Hg] Abudlaziz Caldera MD Work Phone: [facility] 04-06-2022 09:36-0400 Body weight 114.31 kg Roselia Madrigal PELLET MACHINE OPERATOR.APPEALS SPECIALIST Work Phone: [facility] 04-06-2022 09:36-0400 Diastolic blood pressure 62 mm[Hg] Roselia Podlogar PELLET MACHINE OPERATOR.APPEALS SPECIALIST Work Phone: [facility] 04-06-2022 09:36-0400 Heart rate 62 /min Roselia Podlogar PELLET MACHINE OPERATOR.APPEALS SPECIALIST Work Phone: [facility] 04-06-2022 09:36-0400 Respiratory rate 16 /min Roselia Podlogar PELLET MACHINE OPERATOR.APPEALS SPECIALIST Work Phone: [facility] 04-06-2022 09:36-0400 SaO2% (BldA) [Mass fraction] 97 % Roselia Podlogar PELLET MACHINE OPERATOR.APPEALS SPECIALIST Work Phone: [facility] 04-06-2022 09:36-0400 Systolic blood pressure 112 mm[Hg] Roselia Podlogar PELLET MACHINE OPERATOR.APPEALS SPECIALIST Work Phone: [facility] 03-07-2022 11:12-0400 Body weight 114.76 kg Abdulaziz Caldera MD Work Phone: [facility] 03-07-2022 11:12-0400 Diastolic blood pressure 70 mm[Hg] Abdulaziz Caldera MD Work Phone: [facility] 03-07-2022 11:12-0400 Heart rate 64 /min Abdulaziz Caldera MD Work Phone: [facility] 03-07-2022 11:12-0400 Respiratory rate 16 /min Abdulaziz Caldera MD Work Phone: [facility] 03-07-2022 11:12-0400 Systolic blood pressure 118 mm[Hg] Abdulaziz Caldera MD Work Phone: [facility] 03-05-2022 12:00-0400 Diastolic blood pressure 60 mm[Hg] Rosa Elena Lemon PT [facility] 03-05-2022 12:00-0400 Systolic blood pressure 112 mm[Hg] Rosa Elena Lemon PT [facility] 01-12-2022 08:00-0400 Diastolic blood pressure 78 mm[Hg] Rosa Elena Lemon PT [facility] 01-12-2022 08:00-0400 Systolic blood pressure 130 mm[Hg] Rosa Elena Lemon PT [facility] 01-05-2022 09:56-0400 Body height 185.4 cm Tamie Kaur MD Work Phone: [facility] 01-05-2022 09:56-0400 Body weight 111.58 kg Tamie Kaur MD Work Phone: [facility] 01-05-2022 09:56-0400 Diastolic blood pressure 62 mm[Hg] Tamie Kaur MD Work Phone: [facility] 01-05-2022 09:56-0400 Heart rate 58 /min Tamie Kaur MD Work Phone: [facility] 01-05-2022 09:56-0400 Respiratory rate 16 /min Tamie Kaur MD Work Phone: [facility] 01-05-2022 09:56-0400 SaO2% (BldA) [Mass fraction] 97 % Tamie Kaur MD Work Phone: [facility] 01-05-2022 09:56-0400 Systolic blood pressure 117 mm[Hg] Tamie Kaur MD Work Phone: [facility] 01-01-2022 10:12-0400 Body temperature 97.39 [degF] Abdulaziz Caldera MD Work Phone: [facility] 01-01-2022 10:12-0400 Body weight 111.77 kg Abdulaziz Caldera MD Work Phone: [facility] 01-01-2022 10:12-0400 Diastolic blood pressure 64 mm[Hg] Abdulaziz Caldera MD Work Phone: [facility] 01-01-2022 10:12-0400 Heart rate 47 /min Abdulaziz Caldera MD Work Phone: [facility] 01-01-2022 10:12-0400 Respiratory rate 18 /min Abdulaziz Caldera MD Work Phone: [facility] 01-01-2022 10:12-0400 SaO2% (BldA) [Mass fraction] 98 % Abdulaziz Caldera MD Work Phone: [facility] 01-01-2022 10:12-0400 Systolic blood pressure 112 mm[Hg] Abdulaziz Caldera MD Work Phone: [facility] 01-01-2022 08:55-0400 Body weight 112.49 kg Justina Leonie PELLET MACHINE OPERATOR.APPEALS SPECIALIST Work Phone: [facility] 01-01-2022 08:55-0400 Diastolic blood pressure 74 mm[Hg] Justina Leonie PELLET MACHINE OPERATOR.APPEALS SPECIALIST Work Phone: [facility] 01-01-2022 08:55-0400 Heart rate 60 /min Justina Leonie PELLET MACHINE OPERATOR.APPEALS SPECIALIST Work Phone: [facility] 01-01-2022 08:55-0400 Respiratory rate 18 /min Justina Leonie PELLET MACHINE OPERATOR.APPEALS SPECIALIST Work Phone: [facility] 01-01-2022 08:55-0400 Systolic blood pressure 147 mm[Hg] Justina Leonie PELLET MACHINE OPERATOR.APPEALS SPECIALIST Work Phone: [facility] 12-27-2021 21:22-0400 Diastolic blood pressure 71 mm[Hg] DR MELANIA WORKMAN MD [facility] 12-27-2021 21:22-0400 Heart rate 73 /min DR MELANIA WORKMAN MD [facility] 12-27-2021 21:22-0400 Respiratory rate 24 /min DR MELANIA WORKMAN MD [facility] 12-27-2021 21:22-0400 Systolic blood pressure 121 mm[Hg] DR MELANIA WORKMAN MD [facility] 12-27-2021 20:06-0400 Diastolic blood pressure 59 mm[Hg] DR MELANIA WORKMAN MD [facility] 12-27-2021 20:06-0400 Heart rate 80 /min DR MELANIA WORKMAN MD [facility] 12-27-2021 20:06-0400 Respiratory rate 26 /min DR MELANIA WORKMAN MD [facility] 12-27-2021 20:06-0400 Systolic blood pressure 112 mm[Hg] DR MELANIA WORKMAN MD [facility] 12-27-2021 19:19-0400 Body temperature 98.6 [degF] DR MELANIA WORKMAN MD [facility] 12-27-2021 19:19-0400 Diastolic blood pressure 76 mm[Hg] DR MELANIA WORKMAN MD [facility] 12-27-2021 19:19-0400 Heart rate 82 /min DR MELANIA WORKMAN MD [facility] 12-27-2021 19:19-0400 Respiratory rate 26 /min DR MELANIA WORKMAN MD [facility] 12-27-2021 19:19-0400 Systolic blood pressure 138 mm[Hg] DR MELANIA WORKMAN MD [facility] 12-27-2021 17:36-0400 Body temperature 102.56 [degF] DR MELANIA WORKMAN MD [facility] 12-27-2021 17:36-0400 Body weight [address] MELANIA WORKMAN MD [facility] 12-27-2021 17:36-0400 Heart rate 104 /min DR MELANIA WORKMAN MD [facility] 12-14-2021 15:10-0400 Body temperature 98.2 [degF] Abdulaziz Caldera MD Work Phone: [facility] 12-14-2021 15:10-0400 Body weight 110.77 kg Abdulaziz Caldera MD Work Phone: [facility] 12-14-2021 15:10-0400 Diastolic blood pressure 70 mm[Hg] Abdulaziz Caldera MD Work Phone: [facility] 12-14-2021 15:10-0400 Heart rate 54 /min Abdulaziz Caldera MD Work Phone: [facility] 12-14-2021 15:10-0400 Respiratory rate 16 /min Abdulaziz Caldera MD Work Phone: [facility] 12-14-2021 15:10-0400 SaO2% (BldA) [Mass fraction] 96 % Abdulaziz Caldera MD Work Phone: [facility] 12-14-2021 15:10-0400 Systolic blood pressure 130 mm[Hg] Abdulaziz Caldera MD Work Phone: [facility] 12-08-2021 16:23-0400 Diastolic blood pressure 64 mm[Hg] Abdulaziz Caldera MD Work Phone: [facility] 12-08-2021 16:23-0400 Heart rate 85 /min Abdulaziz Caldera MD Work Phone: [facility] 12-08-2021 16:23-0400 Systolic blood pressure 110 mm[Hg] Abdulaziz Caldera MD Work Phone: [facility] 10-23-2021 13:05-0400 Body temperature 97.3 [degF] Marcella Xavier PA-C Work Phone: [facility] 10-23-2021 13:05-0400 Body weight 114.58 kg Marcella Xavier PA-C Work Phone: [facility] 10-23-2021 13:05-0400 Diastolic blood pressure 56 mm[Hg] Marcella Xavier PA-C Work Phone: [facility] 10-23-2021 13:05-0400 Heart rate 85 /min Marcella Jonesport PA-C Work Phone: [facility] 10-23-2021 13:05-0400 SaO2% (BldA) [Mass fraction] 98 % Marcella [place]port PA-C Work Phone: [facility] 10-23-2021 13:05-0400 Systolic blood pressure 132 mm[Hg] Marcella [place]port PA-C Work Phone: [facility] 10-10-2021 10:07-0400 Diastolic blood pressure 68 mm[Hg] Richard Jones MD Work Phone: [facility] 10-10-2021 10:07-0400 Heart rate 69 /min Richard Jones MD Work Phone: [facility] 10-10-2021 10:07-0400 Respiratory rate 16 /min Richard Jones MD Work Phone: [facility] 10-10-2021 10:07-0400 SaO2% (BldA) [Mass fraction] 98 % Richard Jones MD Work Phone: [facility] 10-10-2021 10:07-0400 Systolic blood pressure 150 mm[Hg] Richard Jones MD Work Phone: [facility] 10-10-2021 08:01-0400 Body temperature 97 [degF] Richard Jones MD Work Phone: [facility] Encounters Encounter Date Encounter Type Care Provider Facility Start: 01-28-2023 Telephone encounter Luis Caldera MD Work Phone: [facility] [place] Procedures Date Procedure Procedure Detail Performing Clinician Start: 04-06-2022 INFLUENZA SEASONAL QUADRIVALENT HIGH DOSE AGE 65+ Roselia Podlogar PELLET MACHINE OPERATOR.APPEALS SPECIALIST Work Phone: Start: 04-06-2022 PFIZER-BIONTECH COVI D-19 BIVALENT BOOSTER VACCINE, AGE 12+ YR Roselia Podlogar PELLET MACHINE OPERATOR.APPEALS SPECIALIST Work Phone: Start: 04-06-2022 Adult depression scr eening assessment Roselia Podlogar PELLET MACHINE OPERATOR.APPEALS SPECIALIST Work Phone: Start: 03-07-2022 PROTHROMBIN TIME/PT Chr mine Caldera MD Work Phone: Start: 03-07-2022 Adult depression scr eening assessment Abdulaziz Caldera MD Work Phone: Start: 01-09-2022 Echo tthrc r-t 2d w/wom-mode compl spec&colr d Justina E Leonie PELLET MACHINE OPERATOR.APPEALS SPECIALIST Work Phone: Start: 01-01-2022 Urnls dip stick/tabl [...] Activity Detail Author Start: 10-11-2031 Colonoscopy COLONOSCOPY [facility] Start: 10-11-2031 COLORECTAL CANCER SCREENING COLORECTAL CANCER SCREENING [facility] Start: 10-10-2024 Colonoscopy COLONOSCOPY [facility] Start: 10-10-2024 COLORECTAL CANCER SCREENING COLORECTAL CANCER SCREENING [facility] Start: 01-05-2024 ANNUAL PCP TEAM CHRONIC DISEASE VISIT ANNUAL PCP TEAM CHRONIC DISEASE VISIT [facility] Start: 01-05-2024 BP CONTROLLED (<130/80) BP CONTROLLED (<130/80) [facility] Start: 12-04-2023 BP CONTROLLED (<130/80) BP CONTROLLED (<130/80) [facility] Start: 11-20-2023 ANNUAL PCP TEAM CHRONIC DISEASE VISIT ANNUAL PCP TEAM CHRONIC DISEASE VISIT [facility] Start: 11-20-2023 BP CONTROLLED (<130/80) BP CONTROLLED (<130/80) [facility] Start: 09-07-2023 BP CONTROLLED (<130/80) BP CONTROLLED (<130/80) [facility] Start: 08-13-2023 HEMOGLOBIN/HEMATOCRIT HEMOGLOBIN/HEMATOCRIT [facility] Start: 08-13-2023 SERUM CREATININE SERUM CREATININE [facility] Start: 08-09-2023 ANNUAL PCP TEAM CHRONIC DISEASE VISIT ANNUAL PCP TEAM CHRONIC DISEASE VISIT [facility] Start: 08-09-2023 BP CONTROLLED (<130/80) BP CONTROLLED (<130/80) [facility] Start: 07-12-2023 ANNUAL PCP TEAM CHRONIC DISEASE VISIT ANNUAL PCP TEAM CHRONIC DISEASE VISIT [facility] Start: 07-12-2023 BP CONTROLLED (<130/80) BP CONTROLLED (<130/80) [facility] Start: 04-17-2023 BP CONTROLLED (<130/80) BP CONTROLLED (<130/80) [facility] Start: 04-16-2023 ANNUAL PCP TEAM CHRONIC DISEASE VISIT ANNUAL PCP TEAM CHRONIC DISEASE VISIT [facility] Start: 04-06-2023 Adult depression screening assessment DEPRESSION SCREENING [facility] Start: 04-06-2023 ANNUAL PCP TEAM CHRONIC DISEASE VISIT ANNUAL PCP TEAM CHRONIC DISEASE VISIT [facility] Start: 04-06-2023 BP CONTROLLED (<130/80) BP CONTROLLED (<130/80) [facility] Start: 03-30-2023 3 comp foot exam completed DIABETIC FOOT EXAM [facility] Start: 03-15-2023 Influenza vaccination INFLUENZA (#1) [facility] Start: 03-07-2023 Adult depression screening assessment DEPRESSION SCREENING [facility] Start: 03-07-2023 ANNUAL PCP TEAM CHRONIC DISEASE VISIT ANNUAL PCP TEAM CHRONIC DISEASE VISIT [facility] Start: 03-07-2023 BP CONTROLLED (<130/80) BP CONTROLLED (<130/80) [facility] Start: 03-07-2023 SERUM CREATININE SERUM CREATININE [facility] Start: 03-05-2023 BP CONTROLLED (<130/80) BP CONTROLLED (<130/80) [facility] Start: 03-02-2023 Hepatitis B screening URINE ALBUMIN:CREATININE RATIO [facility] Start: 02-10-2023 Hemoglobin A1c/Hemoglobin.total in Blood HBA1C [facility] Start: 01-05-2023 BP CONTROLLED (<130/80) BP CONTROLLED (<130/80) [facility] Start: 01-01-2023 ANNUAL PCP TEAM CHRONIC DISEASE VISIT ANNUAL PCP TEAM CHRONIC DISEASE VISIT [facility] Start: 01-01-2023 BP CONTROLLED (<130/80) BP CONTROLLED (<130/80) [facility] Start: 01-01-2023 Hepatitis B surface antibody level LDL CHOLESTEROL [facility] Start: 01-01-2023 SERUM CREATININE SERUM CREATININE [facility] Start: 12-14-2022 ANNUAL PCP TEAM CHRONIC DISEASE VISIT ANNUAL PCP TEAM CHRONIC DISEASE VISIT [facility] Start: 12-08-2022 ANNUAL PCP TEAM CHRONIC DISEASE VISIT ANNUAL PCP TEAM CHRONIC DISEASE VISIT [facility] Start: 12-08-2022 BP CONTROLLED (<130/80) BP CONTROLLED (<130/80) [facility] Start: 09-06-2022 ANNUAL PCP TEAM CHRONIC DISEASE VISIT ANNUAL PCP TEAM CHRONIC DISEASE VISIT [facility] Start: 09-02-2022 Hemoglobin A1c/Hemoglobin.total in Blood HBA1C [facility] Start: 08-30-2022 SERUM CREATININE SERUM CREATININE [facility] Start: 08-09-2022 End: 10-09-2022 CBC W Auto Differential panel - Blood CBC + DIFF Lab Routine Type 2 diabetes mellitus with diabetic neuropathy, with long-term current use of insulin (HCC) Expected: 08/09/2022, Expires: 10/09/2022 [facility] Work Phone: Immunizations Immunization Date Immunization Notes Care Provider Fa cili 04-06-2022 COVID-19 booster vaccine, age 12+ yr, bivalent (PFIZER-BIONTECH) Roselia Podlogdavid PELLET MACHINE OPERATOR.APPEALS SPECIALIST Work Phone: [facility] 04-06-2022 influenza, high-dose , quadrivalent vaccine (FLUZONE HIGH DOSE QUADRIVALENT) Roselia Raglandlogdavid PELLET MACHINE OPERATOR.APPEALS SPECIALIST Work Phone: [facility] 06-14-2021 influenza, high-dose , quadrivalent vaccine (FLUZONE HIGH DOSE QUADRIVALENT) Abdulaziz Caldera MD Work Phone: [facility] Work Phone: 02-24-2021 zoster vaccine recombinant Abdulaziz Caldera MD Work Phone: [facility] 09-30-2020 COVID-19 vaccine, ag e 12+ yr (PFIZER-BIONTECH - PURPLE TOP) Abdulaziz Caldera MD Work Phone: [facility] 09-09-2020 COVID-19 vaccine, ag e 12+ yr (PFIZER-BIONTECH - PURPLE TOP) Abdulaziz Caldera MD Work Phone: [facility] 04-16-2020 influenza, high-dose , quadrivalent vaccine (FLUZONE HIGH DOSE QUADRIVALENT) Abdulaziz Caldera MD Work Phone: [facility] 03-14-2020 zoster vaccine recombinant Abdulaziz Caldera MD Work Phone: [facility] Work Phone: 04-02-2019 influenza, high dose seasonal, preservative-free Abdulaziz Caldera MD Work Phone: [facility] Work Phone: 04-15-2018 influenza, high dose seasonal, preservative-free Abdulaziz Caldera MD Work Phone: [facility] 06-13-2017 influenza, high dose seasonal, preservative-free Abdulaziz Caldera MD Work Phone: [facility] 06-20-2016 influenza, high dose seasonal, preservative-free Abdulaziz Caldera MD Work Phone: [facility] 11-24-2015 pneumococcal polysaccharide vaccine, 23 valent Abdulaziz Caldera MD Work Phone: [facility] 05-16-2015 influenza, high dose seasonal, preservative-free Abdulaziz Caldera MD Work Phone: [facility] 10-27-2014 pneumococcal conjuga te vaccine, 13 valent Abdulaziz Caldera MD Work Phone: [facility] 10-27-2014 zoster vaccine, live Socrates Caldera MD Work Phone: [facility] 06-11-2011 influenza virus vaccine, unspecified formulation Abdulaziz Caldera MD Work Phone: [facility] 12-25-2010 tetanus toxoid, redu veronika diphtheria toxoid, and acellular pertussis vaccine, adsorbed Abdulaziz Caldera MD Work Phone: [facility] 04-25-2009 pneumococcal polysaccharide vaccine, 23 valent Abdulaziz Caldera MD Work Phone: [facility] 03-21-2000 diphtheria and tetan us toxoids, adsorbed for pediatric use Abdulaziz Caldera MD Work Phone: [facility] Work Phone: 02-11-1961 poliovirus vaccine, inactivated Abdulaziz Caldera MD Work Phone: [facility] Work Phone: 03-25-1959 poliovirus vaccine, inactivated Abdulaziz Caldera MD Work Phone: [facility] Work Phone: 10-16-1956 poliovirus vaccine, inactivated Abdulaziz Caldera MD Work Phone: [facility] Work Phone: 01-12-1956 poliovirus vaccine, inactivated Abdulaziz Caldera MD Work Phone: [facility] Work Phone: 12-03-1955 poliovirus vaccine, inactivated Abdulaziz Caldera MD Work Phone: [facility] Work Phone: Payers Date Payer Category Payer Unknown [facility]OSPITAL/MEDICAL GENERIC MEDICAL GENERIC [id number] 2012-Present [phone] [address] [place] [address] Indemnity [id number] 2012 Unknown HOSPITAL/MEDICAL GENERIC MEDICAL GENERIC [id number] 2012-Present [phone] [address] [place] [address] Indemnity [id number] 2012 Unknown [id number] 2012 Medicare MEDICARE MEDICAR E A AND B [id number] 2012-Present [phone] [place] [address] Medicare [id number] 2012 Medicare MEDICARE MEDICAR E A AND B [id number] 2012-Present [phone] [place] [address] Medicare [id number] 2012 Medicare [id number] 1945 Unknown [id number] Social History Date Type Detail Facility Start: 11-23-2020 End: 04-06-2022 Tobacco smoking status NHIS Never smoked tobacco [facility] Start: 09-06-2021 End: 12-03-2022 Alcohol intake Current non-drinker of alcohol (finding) [facility] Start: 1945 Sex Assigned At Not on file [facility] Start: 08-07-2021 End: 04-17-2022 Exposure to SARS-CoV-2 (event) Not sure [facility] Tobacco smoking status No Smokin g Status Entered [facility] Sex Assigned At Male [facility] Start: 01-02-2022 End: 01-12-2022 Exposure to SARS-CoV-2 (event) Unable to assess [facility] Work Phone: Start: 11-23-2020 End: 04-06-2022 Tobacco use and exposure Smokeless tobacco non-user [facility] Work Phone: Start: 11-19-2022 End: 12-03-2022 History of Social function [facility] Work Phone: Start: 11-19-2022 End: 12-03-2022 Tobacco use panel [facility] Work Phone: Adult Depression Screening Assessment 2 [facility] Work Phone: Medical Equipment Procedure Code [...] Note Patient Outreach (EVELYN ROGERS) RICHARD ROY ([id number]) 1945 M Date Time Provider Department 05/28/23 GUDELIA HUITRON During your visit today, we recorded the following information about you: Gudelia Huitron MA 05/28/2023 12:44 PM Signed POPULATION HEALTH NAVIGATION OUTREACH Action/FYI NO ANSWER [employer] MESSAGE SENT ANNUAL MEDICARE WELLNESS Advance Directive Discussion Never done HbA1C due on 02/10/2023 Influenza Vaccine(1) due on 03/15/2023 Patient Identified by Name and : NO Outreach Outcome/Action Unable to reach patient: Phone number not valid / voicemail full Go Disht message sent Did you use a PCP [...] time a week. - blood sugar diagnostic (Hypori ULTRA TEST) test strip Test blood sugar(s) [...] due to im (more content not included)... [facility] 05-28-2023 Note HNO ID: [id number] Author: Gudelia Huitron MA Service: ? Author Type: Hydropress Operator Type: Progress Notes Filed: 05/28/2023 12:44 PM Note Text: POPULATION HEALTH NAVIGATION OUTREACH Action/I NO ANSWER [employer] MESSAGE SENT ANNUAL MEDICARE WELLNESS Advance Directive Discussion Never done HbA1C due on 02/10/2023 Influenza Vaccine(1) due on 03/15/2023 Patient Identified by Name and : NO Outreach Outcome/Action Unable to reach patient: Phone number not valid / voicemail full Sightly[employer] message sent Did you use a PCP [...] Huitron MA May 28, 2023 7:[address] [facility] 02-12-2023 Note Patient Outreach (IN TMMN) RICHARD ROY ([id number]) 1945 M Date Time Provider Department 02/12/23 ABDULAZIZ CALDERA During your visit today, we recorded the following information about you: Allergies As of Date: 02/12/2023 Noted Allergy Reaction PANTOPRAZOLE 09/24/2019 6 - Diarrhea Date Reviewed: 01/04/2023 Reviewed by: Tamika Grijalva LPN - Fully Assessed Visit Diagnosis:Diabetic retinopathy of right eye (HCC) [E11.319] Order(s):HGB A1C [[id number]] Order #: [id number] FUTURE Prescriptions as of 02/15/2023 - metFORMIN [...] Encounter Status:Closed by SOLA RANDLE on 02/15/23 [facility] 01-28-2023 Miscellaneous Notes Miya with [facility] calls to report pt was admitted to their facility over the weekend. Miya is requesting immunization record be faxed to: [phone]. Immunization record faxed as requested. Tania Heller LPN documented in this encounter [facility] 01-24-2023 Miscellaneous Notes Phoned patient's and [...] Patient's calling to say patient was at [facility] for rehabilitation after his hospitalization @ [facility] for confusion on 01/04. He was sent by squad to [facility] from [facility] on 01/21 due to episode of [...] post hospital stay but it won't be [facility]. Vannessa Jorge, JACEY documented in this encounter [facility] 01-04-2023 Note HNO ID: [id number] Author: Abdulaziz Caldera MD Service: ? Author [...] Benign-Dr. 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 ([facility]) 05/25/2018 History of transfusion Hyperlipidemia LDL goal < 100 04/01/2012 NSTEMI (non-ST elevated myocardial infarction) ([facility]) Pulmonary embolus, right ([facility]) 09/25/2013 Status post aortic valve repair 2005 Thoracic aneurysm without mention of rupture Type 2 diabetes mellitus with stage 3 chronic kidney disease, with long-term current use of insulin ([facility]) 06/20/2016 Vitamin D deficiency 01/03/2022 Previous Surgical History PAST SURGICAL HISTORY Procedure Laterality Date ABDOMINAL SURGERY HX AMPUTATION METATARSAL+TOE,SINGLE Right 05/25/2018 with delayed closure on 05/28/18. Dr. Obregon at [facility] COLONOSCOPY 10/10/2021 repeat in 3 years [...] Yes Current Facility-Administ (more content not included)... [facility] 01-04-2023 Miscellaneous Notes Pt was seen [...] recommend ER evaluation. documented in this encounter [facility] 01-04-2023 Miscellaneous Notes No return call [...] Vannessa Jorge RN documented in this encounter [facility] 01-03-2023 Note HNO ID: [id number] Author: Justina Escoto PT Service: ? Author [...] PARTIALLY MET, improved 8 to 9 reps Otoe in home exercise program including cardiovascular exercise. [...] in proper exercise (more content not included)... [facility] 01-03-2023 History of Presen t illness [...] PARTIALLY MET, improved 8 to 9 reps Otoe in home exercise program including cardiovascular exercise. [...] with an (*). Patient education as noted. Self-Group Home Management: 1: *strongly enouraged f/u with physician [...] Justina Escoto PT documented in this encounter [facility] 12-31-2022 Note HNO ID: [id number] Author: Justina Escoto PT Service: ? Author [...] Treatment Time Minutes (timed/untimed): 42 Ira Ramos, STORAGE CONSULTANT Justina Escoto, PT [facility] 12-31-2022 History of Presen t illness [...] ALISIA Burch PT documented in this encounter [facility] 12-27-2022 Note HNO ID: [id number] Author: Justina Escoto PT Service: ? Author [...] Treatment Time Minutes (timed/untimed): 40 Ira Ramos, STORAGE CONSULTANT Justina Escoto, PT [facility] 12-27-2022 History of Presen t illness [...] ALISIA Burch PT documented in this encounter [facility] 12-24-2022 Note HNO ID: [id number] Author: Justina Escoto PT Service: ? Author [...] was facilitated with verbal and visual cueing. Self-Group Home Management: 1: *strongly encouraged pt. to be [...] Time Minutes (timed/untimed): 40 Justina Escoto, PT [facility] 12-24-2022 History of Presen t illness [...] was facilitated with verbal and visual cueing. Self-Group Home Management: 1: *strongly encouraged pt. to be [...] Justina Escoto PT documented in this encounter [facility] 12-17-2022 Note HNO ID: [id number] Author: Justina Escoto PT Service: ? Author [...] of gait belt. Patient education as noted. Self-Group Home Management: 1: *discussed automatic lights 2: *discussed [...] Time Minutes (timed/untimed): 40 Justina Escoto, PT [facility] 12-17-2022 History of Presen t illness [...] of gait belt. Patient education as noted. Self-Group Home Management: 1: *discussed automatic lights 2: *discussed [...] 15 Total Treatment Time Minutes (timed/untimed): 40 Justnia Escoto PT documented in this encounter [facility] 12-14-2022 Note HNO ID: [id number] Author: Justina Escoto PT Service: ? Author [...] Time Minutes (timed/untimed): 40 Justina Escoto, PT [facility] 12-14-2022 History of Presen t illness [...] Justina Escoto PT documented in this encounter [facility] 12-12-2022 Note HNO ID: [id number] Author: Justina Escoto PT Service: ? Author [...] Time Minutes (timed/untimed): 40 Justina Escoto, PT [facility] 12-12-2022 History of Presen t illness [...] Justina Escoto PT documented in this encounter [facility] 12-06-2022 Note HNO ID: [id number] Author: Justina Escoto, PT Service: ? Author Type: Physical Therapist Type: Progress Notes Filed: 12/06/2022 10:02 AM Note Text: Episode Visit Count: 3 Therapist That Will Accept/Oversee The Plan Of Care: Justian Escoto Start of Care Date: 11/29/22 Onset [...] Time Minutes (timed/untimed): 40 Justina Escoto, PT [facility] 12-03-2022 Note HNO ID: [id number] Author: Bobbi Garcia MD Service: ? Author Type: Physician Type: Progress Notes Filed: 12/03/2022 12:13 PM Note Text: [facility] CARDIOLOGY Cardiology ([facility]) [address] [facility] [id number] OUTPATIENT VISIT DATE 12/03/2022 PRIMARY CARE PHYSICIAN: Abdulaziz Caldera [address] [place] [address] HISTORY OF PRESENT ILLNESS: Mr. 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 ([facility]) 05/25/2018 History of transfusion Hyperlipidemia LDL goal < 100 04/01/2012 NSTEMI (non-ST elevated myocardial infarction) ([facility]) Pulmonary embolus, right ([facility]) 09/25/2013 Status post aortic valve repair 2005 Thoracic aneurysm without mention of rupture Type 2 diabetes mellitus with stage 3 chronic kidney disease, with long-term current use of insulin ([facility]) 06/20/2016 Vitamin D deficiency 01/03/2022 PAST SURGICAL HISTORY Procedure Laterality Date ABDOMINAL SURGERY HX AMPUTATION METATARSAL+TOE,SINGLE Right 05/25/2018 with delayed closure on 05/28/18. Dr. Obregon at [facility] COLONOSCOPY 10/10/2021 repeat in 3 years [...] Units subcutaneously daily (more content not included)... [facility] 12-03-2022 Note HNO ID: [id number] Author: Justina Escoto, PT Service: ? Author [...] facilitated with verbal, visual, and tactile cueing. Self-Group Home Management: 1: *at length discussed importance of letting physician know about pt. concerns with his loss of interest in things prior to COVID-19 pandemic 2: *discussed that motivation will come from the pt. not from the or the therapist -- and this will directly influence pt. fci progress. 3: *discussed with and pt. that pt. stating I'm lazy. is not his personality and pt. states that he does not want to be this way, but he wants to be comfortable. (more content not included)... [facility] 11-29-2022 Note HNO ID: [id number] Author: Justina Escoto, PT Service: ? Author [...] 11 repetitions to reflect decreased fall risk. Otoe in home exercise program including cardiovascular exercise. [...] Planned: 12 Planned Treatment Interventions: Therapeutic exercise (14901), Neuromuscular re-education (50500), Manual therapy (59107), Therapeutic activities (19056), Self-alf management (69789), Gait Training (23761), Patient/Family/Caregiver Education PLAN FOR NEXT VISIT: Assess [...] <20 [facility] (more content not included)... [facility] 11-20-2022 Miscellaneous Notes OMAR 11/19/22 Appointment [...] to the pharmacy. Please call patient at: [phone]. Nola Castro Pss documented in this encounter [facility] 11-19-2022 Miscellaneous Notes Pt notified of [...] result): 09/24/2022 2.5 documented in this encounter [facility] 11-19-2022 Note HNO ID: [id number] Author: Abdulaziz Caldera MD Service: ? Author [...] Benign-Dr. 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 ([facility]) 05/25/2018 History of transfusion Hyperlipidemia LDL goal < 100 04/01/2012 NSTEMI (non-ST elevated myocardial infarction) ([facility]) Pulmonary embolus, right ([facility]) 09/25/2013 Status post aortic valve repair 2004 Thoracic aneurysm without mention of rupture Type 2 diabetes mellitus with stage 3 chronic kidney disease, with long-term current use of insulin ([facility]) 06/20/2016 Vitamin D deficiency 01/03/2022 Previous Surgical History PAST SURGICAL HISTORY Procedure Laterality Date ABDOMINAL SURGERY HX AMPUTATION METATARSAL+TOE,SINGLE Right 05/25/2018 with delayed closure on 05/28/18. Dr. Obregon at [facility] COLONOSCOPY 10/10/2021 repeat in 3 years [...] chloride 0.9 % (more content not included)... [facility] 10-22-2022 Note HNO ID: [id number] Author: Arminda Obregon Service: ? Author Type: [...] RTC in 3-4 months. [address] DPM [facility] 10-22-2022 Note HNO ID: [id number] Author: Blaire Sandoval RN Service: ? Author Type: ? Type: Progress Notes Filed: 10/22/2022 3:47 PM Note Text: Patient presents with: Left Foot - Established Patient, Diabetic Foot Care Right Foot - Established Patient, Diabetic Foot Care [facility] 10-22-2022 History of Presen t illness [...] Diabetic Foot Care documented in this encounter [facility] 10-22-2022 Instructions Arminda Obregon - 10/22/2022 [...] (or decreased sensation in your feet) a saturation equipment operator should always cut your toenails. Be Careful [...] Go to your health care provider or saturation equipment operator to treat these conditions. documented in this encounter [facility] 09-25-2022 Miscellaneous Notes Patient notified. Voices [...] or narrative: no documented in this encounter [facility] 09-07-2022 Note HNO ID: [id number] Author: Tamie Kaur MD Service: ? Author [...] evaluation of folllow up after hospitalization in [facility]. he was admitted because of syncopal episode [...] others Since covid hit they went to [facility] and was staying in the house [...] Benign-Dr. 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 ([facility]) 05/25/2018 History of transfusion Hyperlipidemia LDL goal < 100 04/01/2012 NSTEMI (non-ST elevated myocardial infarction) ([facility]) Pulmonary embolus, right ([facility]) 09/25/2013 Status post aortic valve repair 2004 Thoracic aneurysm without mention of rupture Type 2 diabetes mellitus with stage 3 chronic kidney disease, with long-term current use of insulin ([facility]) 06/20/2016 Vitamin D deficiency 01/03/2022 PSH: PAST SURGICAL HISTORY Procedure Laterality Date ABDOMINAL SURGERY HX AMPUTATION METATARSAL+TOE,SINGLE Right 05/25/2018 (more content not included)... [facility] 09-07-2022 Miscellaneous Notes Call to patient. Provided number to schedule- [phone]. Offered to transfer patient to schedule but patient declined to schedule stating he could call later. PAOLA Potter, RN September 07, 2022 1:11 PM Suzanne please let patient know how to proceed with driving evaluation I already put the order in computer documented in this encounter [facility] 09-07-2022 History of Presen t illness [...] evaluation of folllow up after hospitalization in [facility]. he was admitted because of syncopal episode [...] others Since covid hit they went to [facility] and was staying in the house [...] Benign-Dr. 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 ([facility]) 05/25/2018 History of transfusion Hyperlipidemia LDL goal < 100 04/01/2012 NSTEMI (non-ST elevated myocardial infarction) ([facility]) Pulmonary embolus, right ([facility]) 09/25/2013 Status post aortic valve repair 2005 Thoracic aneurysm without mention of rupture Type 2 diabetes mellitus with stage 3 chronic kidney disease, with long-term current use of insulin ([facility]) 06/20/2016 Vitamin D deficiency 01/03/2022 PSH: PAST SURGICAL HISTORY Procedure Laterality Date ABDOMINAL SURGERY HX AMPUTATION METATARSAL+TOE,SINGLE Right 05/25/2018 with delayed closure on 05/28/18. Dr. Obregon at [facility] COLONOSCOPY 10/10/2021 repeat in 3 years [...] one time a week. blood sugar diagnostic (Hypori ULTRA TEST) test strip Test blood sugar(s) [...] gait ,unsteady Cannot tandem Tamie Kaur M.D. [facility] Neu[facility] [place] Department of Neurology Total time in minutes [...] on at night. documented in this encounter [facility] 08-28-2022 Miscellaneous Notes Phoned patient and [...] debra Heller LPN documented in this encounter [facility] 08-16-2022 Miscellaneous Notes Patient has been [...] patient. Grecia Bustillo documented in this encounter [facility] 08-14-2022 Miscellaneous Notes Phoned patient and [...] or narrative: no documented in this encounter [facility] 08-09-2022 Note HNO ID: [id number] Author: Abdulaziz Caldera MD Service: ? Author [...] 12 months ago. Going to schedule appointment [facility]. 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 Asymtpomatic still on medical management. Has completed his home PT/OT. Echo and stress test at [facility] were negative/normal. Has follow up with Dr. Garcia on 12/03. questioning if they should be seen sooner. BP well controlled with current regimen <130/80. BPH: With use of flomax, patient is getting up once at night to urinate. Has weak stream, but denies straining, incomplete emptying, dysuria, hematuria, incontinence. Followed up with ENT in [place] for chronic frontal sinusitis on CT/MRI going [...] delayed closure on 05/28/18. Dr. Obregon at [facility] COLONOSCOPY 10/10/2021 repeat in 3 years [...] daily. For cholesterol. (more content not included)... [facility] 08-09-2022 History of Presen t illness [...] 12 months ago. Going to schedule appointment [facility]. 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 Asymtpomatic still on medical management. Has completed his home PT/OT. Echo and stress test at [facility] were negative/normal. Has follow up with Dr. Garcia on 12/03. questioning if they should be seen sooner. BP well controlled with current regimen <130/80. BPH: With use of flomax, patient is getting up once at night to urinate. Has weak stream, but denies straining, incomplete emptying, dysuria, hematuria, incontinence. Followed up with ENT in [place] for chronic frontal sinusitis on CT/MRI going [...] goal < 100 04/01/2012 Pulmonary embolus, right ([facility]) 09/25/2013 Status post aortic valve repair 2005 Thoracic aneurysm without mention of rupture Type 2 diabetes mellitus with stage 3 chronic kidney disease, with long-term current use of insulin ([facility]) 06/20/2016 Vitamin D deficiency 01/03/2022 Previous Surgical History PAST SURGICAL HISTORY Procedure Laterality Date ABDOMINAL SURGERY HX AMPUTATION METATARSAL+TOE,SINGLE Right 05/25/2018 with delayed closure on 05/28/18. Dr. Obregon at [facility] COLONOSCOPY 10/10/2021 repeat in 3 years [...] by mouth once daily. blood sugar diagnostic ([employer] ULTRA TEST) test strip Test blood sugar(s) [...] Abs Lymph 1.00 - 4.00 k/uL 1.81 [place]% % 6.9 Abs [place] <0.87 k/uL 0.86 Eosin% % 3.1 Abs [...] neuropathy, with long-term current use of insulin ([facility]) - ICD9: 250.60, 357.2, V58.67, ICD10: E11.40, Z79.4 (primary diagnosis) improved control - Continue current medications - Blood glucose monitoring on a four times a day schedule - Encouraged regular aerobic exercise and weight loss - Follow up in 6 months, sooner should any other issues arise. - Discussed diabetic education issues of fci diabetic complications, hypoglycemic symptoms, hyperglycemic symptoms, diet, medications- side effects and need for compliance, importance of exercise, use and side effects of insulin, and importance of annual examinations with Opthalmology with patient. - HGB A1C - COMP METABOLIC PANEL - INSULIN ASPART (U-100) 100 UNIT/ML (3 ML) SUBCUTANEOUS PEN - CBC + DIFF 2. Diabetic polyneuropathy associated with type 2 diabetes mellitus ([facility]) - ICD9: 250.60, 357.2, ICD10: E11.42 Controlled on current regimen. 3. NSTEMI (non-ST elevated myocardial infarction) ([facility]) - ICD9: 410.70, ICD10: I21.4 Patient [...] Abdulaziz Caldera MD documented in this encounter [facility] 08-06-2022 Miscellaneous Notes Phoned patient and updated him with provider's message. Patient voiced understanding. I would not recommend a baby ASA for this patient. Pt called to check on refill on baby aspirin. This is not on med list. Pt asking if he should be taking this. Please advise pt. Mila Castro LPN documented in this encounter [facility] 08-06-2022 Note HNO ID: [id number] Author: Arminda Jaimes MD Service: ? Author [...] physician via mail or electronic medical record. [facility] 08-06-2022 History of Presen t illness [...] electronic medical record. documented in this encounter [facility] 07-31-2022 Miscellaneous Notes Spoke with patient [...] Rebecca Esteban LPN documented in this encounter [facility] 07-27-2022 Miscellaneous Notes [employer] message not read as of 07/27/2022. Called and spoke with patient. Appt rescheduled to 09/07/2022 at 11:00 AM Meghana Burgess Due to change in provider's schedule, appt on 08/21/2022 needs rescheduled. Patient notified via [employer] message on 07/05/2022. Meghana Burgess documented in this encounter [facility] 07-26-2022 Miscellaneous Notes Thanks. Darlyn, a nurse with [facility] calling to state she has discharged pt from [facility] today. Pt is doing really well. No call back needed. Thank you. documented in this encounter [facility] 01-11-2023 Miscellaneous Notes Last Office Visit: 07/12/2022 Future Office Visit: 08/09/2022 Requested Prescriptions Pending Prescriptions Disp Refills amLODIPine (NORVASC) 2.5 mg tablet 30 tablet 5 Sig: Take 1 tablet by mouth once daily. Date of Last Labs: 03/02/2022 documented in this encounter [facility] 07-17-2022 Miscellaneous Notes Reviewed and agree. Maverick PT calling from [facility] to report plan of care for patient and PT will visit patient 2 times a week for 3 weeks. PT will work with patient on functional mobility training. Halima Diaz RN documented in this encounter [facility] 07-17-2022 Miscellaneous Notes Reviewed. Barbi from [facility] calling with OT plan of care, one time visit only, patient denies any further OT needs. No call back needed. documented in this encounter [facility] 07-13-2022 Miscellaneous Notes Left detailed message on confidential line Ewa Andino Ma agree Chiki, a nurse with [facility] calling with [facility] Plan of Care for patient: Patient will be seen 1 time per week for 4 weeks for BP monitoring. No call back needed if provider agreeable. Thank you. documented in this encounter [facility] 07-12-2022 Note HNO ID: [id number] Author: Abdulaziz Caldera MD Service: ? Author Type: Physician Type: Progress Notes Filed: 07/17/2022 8:33 AM Note Text: Chief Complaint Patient presents with: Hospital F/U: Admitted 07/09/22 discharged 07/11/22 HPI Richard Roy is a 76 year old male who presents here today for Hospital Discharge Follow up.. Patient was admitted to [facility] from 07/09 to 07/11 after presenting [...] to follow up with our office and director of plant operations. Since discharge yesterday, patient has been doing [...] Benign-Dr. 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 ([facility]) 05/25/2018 History of transfusion Hyperlipidemia LDL goal < 100 04/01/2012 Pulmonary embolus, right ([facility]) 09/25/2013 Status post aortic valve repair 2004 Thoracic aneurysm without mention of rupture Type 2 diabetes mellitus with stage 3 chronic kidney disease, with long-term current use of insulin ([facility]) 06/20/2016 Vitamin D deficiency 01/03/2022 Previous Surgical History PAST SURGICAL HISTORY Procedure Laterality Date ABDOMINAL SURGERY HX AMPUTATION METATARSAL+TOE,SINGLE Right 05/25/2018 with delayed closure on 05/28/18. Dr. Obregon at [facility] COLONOSCOPY 10/10/2021 repeat in 3 years [...] 0.4 mg Take (more content not included)... [facility] 07-12-2022 Miscellaneous Notes Karly was notified Ewa Andino Ma Agree and will follow Karly with [facility] called and reports Pt was discharged yesterday and they received a referral for PT/OT/SN. They are going to do their start of care tomorrow, and she was asking if the provider would be willing to follow. documented in this encounter [facility] 07-09-2022 Miscellaneous Notes Last Office Visit: 04/16/2022 Future Office Visit: 09/17/2022 Requested Prescriptions Pending Prescriptions Disp Refills dulaglutide (TRULICITY) 1.5 mg/0.5 mL pen injector 12 Each 3 Sig: Inject 1.5 mg subcutaneously one time a week. Inject once per week. Discard Pen After Date of Last Labs: 03/02/2022 documented in this encounter [facility] 07-03-2022 Note HNO ID: [id number] Author: Arminda Obregon Service: ? Author Type: [...] RTC in 3-4 months. [address]inda [address] DPM [facility] 07-03-2022 Note HNO ID: [id number] Author: Marcella Cox RN Service: ? Author Type: Registered Nurse Type: Progress Notes Filed: 07/03/2022 11:17 AM Note Text: Patient presents with: Left Foot - Established Patient, Follow Up, nail care Right Foot - Established Patient, Follow Up, nail care [facility] 07-02-2022 Note HNO ID: [id number] Author: Bobbi Garcia MD Service: ? Author Type: Physician Type: Progress Notes Filed: 07/02/2022 12:42 PM Note Text: [facility]Y Cardiology ([facility]) [address] [facility] [id number] OUTPATIENT VISIT DATE 07/02/2022 PRIMARY CARE PHYSICIAN: Abdulaziz Caldera [address] [place] [address] HISTORY OF PRESENT ILLNESS: Mr. Roy is [...] HISTORY: From Last OV with Justina Hadley [facility] 01/01/2022: Richard Roy is a 76 year old male who presents for routine follow up. 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 His accompanies him for his office visit today. They both explain to me he was hospitalized at [facility] for 2 days last week for [...] LE swelling. Records have been requested from [facility]. He is unsure of what testing was completed. An echocardiogram was ordered at his last office visit with me. If this was not completed at [facility], I recommend this be completed for further cardiac evaluation. PAST MEDICAL HISTORY Diagnosis Date BPH (benign prostatic hyperplasia) Cholelithiasis 09/25/2013 Chronic neutrophilia Benign-Dr. 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 ([facility]) 05/25/2018 History of transfusion Hyperlipidemia LDL goal < 100 04/01/2012 Pulmonary embolus, right ([facility]) 09/25/2013 Status post aortic valve repair 2005 Thoracic aneurysm without mention of rupture Type 2 diabetes mellitus with stage 3 chronic kidney disease, with long-term current use of insulin ([facility]) 06/20/2016 Vitamin D deficiency 01/03/2022 PAST SURGICAL HISTORY Procedure Laterality Date ABDOMINAL SURGERY HX AMPUTATION METATARSAL+TOE,SINGLE Right 05/25/2018 with delayed closure on 05/28/18. Dr. Obregon at [facility] COLONOSCOPY 10/10/2021 repeat in 3 years [...] at bedtime.Disp: 3 (more content not included)... [facility] 06-25-2022 Miscellaneous Notes Last appt: 04/16/22 [...] Tania Heller LPN documented in this encounter [facility] 05-16-2022 Miscellaneous Notes Patient has been [...] Mila Castro LPN documented in this encounter [facility] 04-17-2022 History of Presen t illness [...] evaluation of folllow up after hospitalization in [facility]. he was admitted because of syncopal episode [...] others Since covid hit they went to [facility] and was staying in the house [...] delayed closure on 05/28/18. Dr. Obregon at [facility] COLONOSCOPY 10/10/2021 repeat in 3 years [...] week. Discard Pen After blood sugar diagnostic (Hypori ULTRA TEST) test strip Test blood sugar(s) [...] gait ,unsteady Cannot tandem Tamie Kaur M.D. [facility] Department of Neurology Total time in minutes [...] on at night. documented in this encounter [facility] 04-17-2022 Miscellaneous Notes Reviewed. Behavioral Health Social Work Progress Note Patient identified for [facility] from: PCP Reason for referral: Resources Behavioral Health Resources: Psychology - talk therapy [facility] encounter type: Telephone Encounter Attempts to Outreach: 1 attempt Referral made: Psychology - External Psychology-External referral type: Therapy Reason for external referral: Wait times at [facility] too long Final Disposition: Resources given Patient Discharged?: Yes Patient reported that caregiver was able to meet their needs today?: Yes SW placed a phone call to patient at the request of the PCP. Pt reported he is looking for talk therapy referrals at this time. SW provided the following referrals via phone: [facility] [address], [facility], [facility] [address] *[facility]ing [facility] [address] [address] *counseling [facility] [address], [address] [place] [address] *counseling [facility] [address] [place] [address] FEDERICO Zamudio April 17, 2022 documented in this encounter [facility] 04-16-2022 History of Presen t illness [...] (HCC) 09/08/2010 Diabetic retinopathy of right eye ([facility]) mild Diverticulosis of colon (without mention [...] delayed closure on 05/28/18. Dr. Obregon at [facility] COLONOSCOPY 10/10/2021 repeat in 3 years [...] week. Discard Pen After blood sugar diagnostic ([employer]CH ULTRA TEST) test strip Test blood sugar(s) [...] Abs Lymph 1.00 - 4.00 k/uL 1.81 Hocking% % 6.9 Abs [place]ock[place] <0.87 k/uL 0.86 Eosin% % 3.1 Abs [...] disease, with long-term current use of insulin ([facility]) - ICD9: 250.40, 585.3, V58.67, ICD10: E11.22, N18.31, Z79.4 (primary diagnosis) Controlled. - Continue current medications - Blood glucose monitoring on a 3 times a day schedule - Encouraged regular aerobic exercise and weight loss - Follow up in 6 months, sooner should any other issues arise. - Discussed diabetic education issues of fci diabetic complications, hypoglycemic symptoms, hyperglycemic symptoms, diet, [...] Abdulaziz Caldera MD documented in this encounter [facility] documented in this encounter [facility] History of Present illness Narrative* Roselia Madrigal, PELLET MACHINE OPERATOR.APPEALS SPECIALIST - 04/06/2022 9:40 AM EDT 04/06/2022 Patient [...] Benign-Dr. 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 FOR CHOLESTEROL. blood sugar diagnostic (Hypori ULTRA TEST) test strip Test blood sugar(s) [...] SEASONAL QUADRIVALENT HIGH DOSE AGE 65+ - [employer] COVID-19 BIVALENT BOOSTER VACCINE, AGE 12+ YR [...] which included preparing to see the patient, [id number] patient care, completing clinical documentation, obtaining and/or reviewing separately obtained history, performing a medically appropriate examination, and counseling and educating the patient/family/caregiver. [facility] Miscellaneous Notes* Telephone Encounter - Valencia [...] AM EDT ----- Message from Roselia Madrigal APRN.APPEALS SPECIALIST sent at 04/03/2022 2:47 PM EDT ----- Please forward INR to doctor filling station laborer Roselia Madrigal APRN.APPEALS SPECIALIST [facility] History of Present illness Narrative* Arminda [...] Care Merlene Martinez LPN documented in this encounterEast [facility] Instructions* Patient Instructions* Arminda Obregon - [...] (or decreased sensation in your feet) a saturation equipment operator should always cut your toenails. Be Careful [...] Go to your health care provider or saturation equipment operator to treat these conditions. documented in [facility] History of Present illness Narrative* Rosa [...] 01/12/22 through 03/15/22 Goals updated on 03/23/2022. Otoe in home exercise program. (Met) Patient will [...] Rosa Elena Poon PT documented in this encounter[facility] Miscellaneous Notes* Telephone Encounter - Maggy Ibarra Pss - 03/22/2022 1:49 PM EDT Pharmacy verified in [facility] Patient has been identified by name and [...] advise. Maggy Ibarra Pss documented in this encounter[facility] History of Present illness Narrative* Rosa [...] Treatment Time Minutes (timed/untimed): 40 Karen Weber, STORAGE CONSULTANT Rosa Elena Poon PT documented in this encounter[facility]-29-[facility] History of Present illness Narrative* Rosa [...] 41 ALISIA Whiting PT documented in this encounterEast [facility]08-[facility]22 Miscellaneous Notes* Addendum Note - Rosa Elena Poon PT - 03/09/2022 1:18 PM EDTAddended by: ROSA ELENA POON on: 03/09/2022 01:18 PM Modules accepted: Orders documented in this encounterEast [facility]08-26-[facility]22 History of Present illness Narrative* Rosa [...] 01/12/22 through 03/15/22 Goals updated on 03/09/2022. Otoe in home exercise program. (Met) Patient will [...] Patient to be seen for Therapeutic exercise (93798);Neuromuscular re-education (53326);Gait Training (59550);Patient/Family/Caregiver Education PLAN FOR NEXT VISIT: Add bridging [...] Rosa Elena Lemon, PT documented in this encounterEast [facility]08-[facility]22 Miscellaneous Notes* Telephone Encounter - Amada [...] testing Madison Ma Cma documented in this encounterEast [facility]08-24-[facility]22 Instructions* Patient Instructions* Abdulaziz Caldera MD - 03/07/2022 11:45 AM EDT Please take 2,000 units of vitamin D daily over the counter. documented in this encounterEast [facility]08-[facility] History of Present illness Narrative* Abdulaziz Caldera MD - 03/07/2022 11:19 AM EDT Chief Complaint Patient presents with: 6 Month Exam ER F/U HPI Richard Roy is a 76 year old male who presents here today for ER Follow Up.. Patient evaluated at [facility] ED on 03/02 for complaint of [...] Benign-Dr. 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 ([facility]) 05/25/2018 History of transfusion Hyperlipidemia LDL goal < 100 04/01/2012 Pulmonary embolus, right ([facility]) 09/25/2013 Status post aortic valve repair 2004 Thoracic aneurysm without mention of rupture Type 2 diabetes mellitus with stage 3 chronic kidney disease, with long-term current use of insulin([facility]) 06/20/2016 Vitamin D deficiency 01/03/2022 Previous Surgical History PAST SURGICAL HISTORY Procedure Laterality Date ABDOMINAL SURGERY HX AMPUTATION METATARSAL+TOE,SINGLE Right 05/25/2018 with delayed closure on 05/28/18. Dr. Obregon at [facility] COLONOSCOPY 10/10/2021 repeat in 3 years [...] ONCE DAILY. FOR CHOLESTEROL. blood sugar diagnostic (Hypori ULTRA TEST) test strip Test blood sugar(s) [...] Abs Lymph 1.00 - 4.00 k/uL 1.81 Hocking% % 6.9 Abs Hocking <0.87 k/uL 0.86 Eosin% % 3.1 Abs [...] PANEL Abdulaziz Caldera MD documented in this encounterEast [facility]08-22-[facility]22 History of Present illness Narrative* Rosa [...] Rosa Elena Poon PT documented in this encounterEast [facility]08-19-[facility]22 History of Present illness Narrative* Rosa [...] Rosa Elena Poon PT documented in this encounterEast [facility]08-15-[facility]22 History of Present illness Narrative* Rosa [...] Rosa Elena Poon PT documented in this encounterEast [facility]08-12-[facility]22 History of Present illness Narrative* Rosa [...] 43 ALISIA Whiting PT documented in this encounterEast [facility]08-03-[facility]22 History of Present illness Narrative* Rosa [...] Rosa Elena Poon PT documented in this encounterEast [facility]07-29-[facility]22 History of Present illness Narrative* Rosa [...] 01/12/22 through 03/15/22 Goals updated on 02/09/2022. Otoe in home exercise program. (Met) Patient will [...] Patient to be seen for Therapeutic exercise (91707);Neuromuscular re-education (78243);Gait Training (74233);Patient/Family/Caregiver Education PLAN FOR NEXT VISIT: Continue to [...] Rosa Elena Poon PT documented in this encounterEast [facility]07-26-[facility]22 Miscellaneous Notes* Telephone Encounter - Nola [...] patient. Nola Castro Pss documented in this encounterEast [facility] Hospital07-22-[facility]22 History of Present illness Narrative* Cortney [...] 43 ALISIA Whiting, PT documented in this encounterEast [facility]07-21-2022 Miscellaneous Notes* Telephone Encounter - Mila [...] No need to notify patient. Eulalia Gaston [facility] documented in this encounterEast [facility] Hospital07-19-[facility]22 History of Present illness Narrative* Justina [...] 43 ALISIA Whiting PT documented in this encounterEast [facility] Hospital07-12-2022 Miscellaneous Notes* Telephone Encounter - Rebecca [...] you. Rebecca Gonzales RN documented in this encounterEast [facility] Hospital07-12-[facility]22 History of Present illness Narrative* Chiki [...] 45 ALISIA Whiting PT documented in this encounterEast [facility]07-08-2022 Miscellaneous Notes* Telephone Encounter - Maggy [...] on driving. Please advise. documented in this encounterEast [facility] Hospital07-01-2022 History of Present illness Narrative* Rosa [...] of Care: created on 01/12/22 through 03/15/22 Otoe in home exercise program. Patient will demonstrate [...] Planned: 16 Planned Treatment Interventions: Therapeutic exercise (98125);Neuromuscular re- education (24510);Gait Training (09841);Patient/Family/Caregiver Education PLAN FOR NEXT VISIT: Review HEP [...] Rosa Elena Poon PT documented in this encounterEast [facility]07-01-2022 Miscellaneous Notes* Telephone Encounter - Ewa [...] Pending consult. Please advise documented in this encounterEast [facility] Hospital06-29-2022 Miscellaneous Notes* Telephone Encounter - Mila [...] his syncope/collapse. Thank you! documented in this encounterEast [facility] Hospital06-29-2022 Miscellaneous Notes* Result QuickNote - Justina Hadley APRN.CNP - 01/10/2022 11:33 AM EDT Please call patient and notify him. Echocardiogram is stable. Valve replacement function is stable.No cardiac structure/function changes to explain his syncope/collapse. Thank you! documented in this encounterEast [facility] Hospital06-24-2022 History of Present illness Narrative* Tamie [...] medical record. REFERRING PHYSICIAN: Abdulaziz Caldera [address] [facility] [address] Accompanied by: Spouse ASSESSMENT: 76 year old [...] evaluation of folllow up after hospitalization in [facility]. he was admitted because of syncopal episode [...] others Since covid hit they went to [facility] and was staying in the house [...] delayed closure on 05/28/18. Dr. Obregon at [facility] COLONOSCOPY 10/10/2021 repeat in 3 years [...] by mouth once daily. blood sugar diagnostic ([employer] ULTRA TEST) test strip Test blood sugar(s) [...] gait ,unsteady Cannot tandem Tamie Kaur M.D. [facility] Department of Neurology January 05, 2022 Total [...] lights on at night. documented in this encounterEast Liverpool City Hospital06-21-2022 Miscellaneous Notes* Telephone Encounter - Justina Martinez LPN - 01/02/2022 8:06 AM EDT I spoke to and informed him of Justina's response to lipid panel results. Patient voiced understanding. Justina Martinez LPN * Telephone Encounter - Justina Martinez LPN - 01/02/2022 7:43 AM EDT ----- Message from Justina Hadley APRN.APPEALS SPECIALIST sent at 01/02/2022 7:38 AM EDT ----- Please call patient and notify him cholesterol has good control. Thank you! documented in this encounterEast [facility] Hospital06-20-2022 History of Present illness Narrative* Abdulaziz Caldera MD - 01/01/2022 10:20 AM EDT Chief Complaint Patient presents with: Hospital Follow Up: [facility] discharged 12/29/21 HPI Richard Roy is a 76 year old male who presents here today for Hospital Discharge Follow up. Accompanied today by his . Patient admitted to [facility] from 12/27 to 12/29 after presenting to the [facility] ED after being found slumped over his tractor at home earlier in the afteernoon. Had been working outside for unknown period of time. Had only eaten cookies and milk that day. Heat index over 100. Back to baseline at the time of evaluation by hospitalist at [facility]. Found to have leukocytosis at [place] [facility] and elevated lactic acid level. Noted [...] echo since it was not completed at [facility]. No other changes to regimen. Patient [...] kidney disease, with long-term current use of insulin([facility]) 06/20/2016 Previous Surgical History PAST SURGICAL HISTORY Procedure Laterality Date ABDOMINAL SURGERY HX AMPUTATION METATARSAL+TOE,SINGLE Right 05/25/2018 with delayed closure on 05/28/18. Dr. Obregon at [facility] COLONOSCOPY 10/10/2021 repeat in 3 years [...] by mouth once daily. blood sugar diagnostic (Hypori ULTRA TEST) test strip Test blood sugar(s) [...] SCRN Abdulaziz Caldera MD documented in this encounterEast Liverpool City Hospital06-20-2022 Instructions* Patient Instructions* Justina Hadley APRN.APPEALS SPECIALIST - 01/01/2022 9:05 AM EDT High Blood [...] risk for high blood pressure. Developed by [employer]. Published by [employer]. Copyright 2014 [employer] and/or one of its subsidiaries. All rights reserved. documented in this encounterEast Liverpool City Hospital06-20-2022 History of Present illness Narrative* Justina [...] bothexplain to me he was hospitalized at [facility] for 2 days last week for [...] LE swelling. Records have been requested from [facility]. He is unsure of what testing was completed. An echocardiogram was ordered at his last office visit with me.If this was not completed at [facility], I recommend this be completed for further cardiac evaluation. PAST MEDICAL HISTORY Diagnosis Date Cholelithiasis 09/25/2013 Chronic neutrophilia Benign-Dr. 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 Dr. Obregon at [facility] COLONOSCOPY 10/10/2021 repeat in 3 years [...] injection (DEFINITY) INTRAVENOUS DIRECTED PRN Justina Hadley, PELLET MACHINE OPERATOR.APPEALS SPECIALIST sodium chloride 0.9 % (flush) 10 mL (BD POSIFLUSH) 10 mL INTRAVENOUS DIRECTED PRN Justina Hadley, PELLET MACHINE OPERATOR.APPEALS SPECIALIST Review of Systems Constitutional: Negative for chills, [...] MRI of his head CAD -MILD on [facility] 2004 -stress testing 2013 with no [...] 01, 2022, 8:57 AM documented in this encounterEast [facility] Hospital06-19-[facility]22 Note. MICRO - Microbiology PROCEDURE: Blood Culture (bacterial) [*1] SOURCE: Blood BODY SITE: COLLECTED DATE/TIME: 12/27/2021 17:43 EDT RECEIVED DATE/TIME: 12/28/2021 14:37 EDT START DATE/TIME: 12/28/2021 14:37 EDT FREE TEXT SOURCE: FINAL REPORTS Final Report [] Verified Date/Time/Personnel: 12/31/2021 07:29 EDT Staphylococcus epidermidis Isolated from anaerobe bottle only. Refer to previous culture for susceptibility. [id number] PRELIMINARY REPORTS Preliminary Report [] Verified Date/Time/Personnel: 12/30/2021 09:39 EDT Staphylococcus epidermidis Isolated from anaerobe bottle only. Refer to previous culture for susceptibility. [id number] Preliminary Report [] Verified Date/Time/Personnel: 12/28/2021 15:59 EDT Culture has been received in lab and is no growth to date. Routine cultures are held for 5 days. STAINS GSANA [] Verified Date/Time/Personnel: 12/29/2021 14:08 EDT Gram Positive Cocci in clusters Performing Locations *1: This test was performed at: [facility], [address] [place] [address], [facility] , [facility], [facility] ([place])12-31-2021 Note. MICRO - Microbiology PROCEDURE: Blood Culture [...] Locations *1: [facility] [facility], [address] [place] [address], [id number] , [facility], [facility] ([place])12-27-2021 SARS-CoV-2 (COVID-19) RNA ANGELY+probe Ql (Nph)Positive 2 *ABN* (12/27/21 5:43 PM)AO Auto Urine SSComment on above:Result Comment: positive covid cvrb s. tona Evaluation + Plan note Diagnostic Tests Pending * Urinalysis 12/27/21 * Blood Culture (bacterial) 12/27/21 * Blood Culture (bacterial) 12/27/21 [facility] 06-02-2022 History of Present illness Narrative* Abdulaziz Caldera MD - 12/14/2021 3:13 PM EDT Chief Complaint Patient presents with: Covid Follow Up HPI Richard Roy is a 76 year old male who presents here today for Above Complaints.. Patient positive for COVID in the [facility] ER last week on 12/06. Spoke [...] Benign-Dr. 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 ([facility]) 05/25/2018 History of transfusion Hyperlipidemia LDL goal < 100 04/01/2012 Pulmonary embolus, right ([facility]) 09/25/2013 Status post aortic valve repair 2005 Thoracic aneurysm without mention of rupture Type 2 diabetes mellitus with stage 3 chronic kidney disease, with long-term current use of insulin([facility]) 06/20/2016 Previous Surgical History PAST SURGICAL HISTORY Procedure Laterality Date ABDOMINAL SURGERY HX AMPUTATION METATARSAL+TOE,SINGLE Right 05/25/2018 with delayed closure on 05/28/18. Dr. Obregon at [facility] COLONOSCOPY 10/10/2021 repeat in 3 years [...] by mouth once daily. blood sugar diagnostic ([employer] ULTRA TEST) test strip Test blood sugar(s) [...] detail. Abdulaziz Caldera MD documented in [facility] encounter[facility] History of Present illness Narrative* Abdulaziz [...] today for Above Complaints.. Patient evaluated at [facility] ER on 12/06 for complaint of generalized weakness, cough, and feeling off balance and developed cough which started on 12/04. Denied other COVID symptoms at that time. Lab workup in the ER was unremarkable aside from positive COVID test and INR of 3.3. UA unremarkable. CXR showed some ill defined densities in RLL which was likely 2/2 COVID infection. [place] to be well enough and discharged home [...] amputation of first toe of right foot ([facility]) 05/25/2018 History of transfusion Hyperlipidemia LDL goal < 100 04/01/2012 Pulmonary embolus, right ([facility]) 09/25/2013 Status post aortic valve repair 2005 Thoracic aneurysm without mention of rupture Type 2 diabetes mellitus with stage 3 chronic kidney disease, with long-term current use of insulin([facility]) 06/20/2016 Previous Surgical History PAST SURGICAL HISTORY Procedure Laterality Date ABDOMINAL SURGERY HX AMPUTATION METATARSAL+TOE,SINGLE Right 05/25/2018 with delayed closure on 05/28/18. Dr. Obregon at [facility] COLONOSCOPY 10/10/2021 repeat in 3 years [...] by mouth once daily. blood sugar diagnostic ([employer] ULTRA TEST) test strip Test blood sugar(s) [...] these interactions. Not interested in driving to [facility] for IV ab. Since his symptoms are mild, he would prefer to rest at home. Discussed risks and benefits of treatment and that he is high risk for severe infection. Red flags for re-assessment reviewed with patient in detail. I spent a total of 25 minutes on the date of the service which included preparing to see the patient, [id number] patient care, completing clinical documentation, obtaining and/or reviewing separately obtained history, performing a medically appropriate examination, counseling and educating the pat ient/family/caregiver and ordering medications, tests, or procedures. Abdulaziz Caldera MD documented in this encounterEast [facility]05-27-[facility]22 Miscellaneous Notes* Telephone Encounter - Abdulaziz [...] with one of our providers or with [facility] online. * Telephone Encounter - Rosa Elena Martinez Pss - 12/08/2021 2:16 PM EDT Patient called stating he was at [facility] ER on 12/06. Tested positive for covid. Patient was informed tocontact the office within 5 days to inform. Please advise patient when he can be seen in office. documented in this encounterEast [facility] Hospital05-09-2022 Miscellaneous Notes* Telephone Encounter - Eulalia [place] [facility] [place] 11/20/2021 9:49 AM EDT Patient has been identified by name and date of : Yes Pending Prescriptions Disp Refills METFORMIN ER 500 MG 24 HR TABLET,EXTENDED RELEASE Sig: Take 1 tablet by mouth daily with breakfast. NUHA: No OMAR-09/06/21 Labs-08/30/21 NOV-03/07/22 RX INSTRUCTIONS: Patient aware RX will be sent to pharmacy. No need to notify patient. Eulalia [facility] documented in this encounterEast [facility] Hospital04-11-2022 Instructions* Patient Instructions* Marcella Park PA-C - 10/23/2021 1:25 PM EDT -Recommend daily fiber supplement and plenty of fluids The following instructions are important for you related to your office visit today with the [facility] General Surgeons. INSTRUCTIONS FOR DIVERTICULA I [...] you should contact our office immediately @ [phone] and ask to be transferred to the General Surgery department. The following instructions are important for you related to your office visit today with the [facility] General Surgeons. INSTRUCTIONS FOLLOWING A [...] you should contact our office immediately @ [phone] and ask to be transferred to the General Surgery department. documented in this encounterEast [facility] City Hospital04-11-2022 History of Present illness Narrative* Marcella Park PA-C - 10/23/2021 1:09 PM EDT FOLLOW UP VISIT - ENDOSCOPY NAME: Richard Bonilla [facility] NO.: [id number] DATE OF SERVICE: 10/23/2021 : 1945 REFERRING [...] which included preparing to see the patient, [id number] patient care, completing clinical documentation, obtaining and/or reviewing separately obtained history, counseling and educating the patient/family/caregiver, communicating with other HCPs (not separately reported), independently interpreting results (not separately reported) and communicating results to the patient/family/caregiver. Marcella Park PA-C documented in this encounterEast [facility] Hospital03-29-2022 Nurse Note* Caroline Larkin RN - [...] answered. Caroline Larkin RN documented in this encounterEast [facility] Hospital03-29-2022 History and physical note * Richard [...] Benign-Dr. 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 Dr. Obregon at [facility] COLONOSCOPY FLX DX W/COLLJ SPEC WHEN [...] by mouth once daily. blood sugar diagnostic ([employer] ULTRA TEST) test strip Test blood sugar(s) [...] patient was offered a surgery[facility]procedure [facility]. 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 Patient aware RX will be sent to pharmacy. No need to notify patient. Violette Lockhart documented in this encounterEast [facility] City Hospital03-23-2022 Miscellaneous Notes* Telephone Encounter - Nelson [...] advise, Halima Diaz RN documented in this encounterEast [facility] Hospital02-02-2022 Miscellaneous Notes* Telephone Encounter - Garland Vicente - 08/16/2021 9:36 AM EST 10-10-2021 [facility] documented in this encounterEast [facility] City Hospital01-13-2022 NoteHNO ID: [id number] Author: REY Burt Service: Radiology Author Type: Slat Twister Type: Progress Notes Filed: 07/27/2021 10:50 AM [...] Roy DATE: July 27, 2021 TIME: 10:49 [id number] History of Past illness Narrative* Problem Noted [...] of this encounter (statuses as of 10/04/2021) [facility] History of Past illness Narrative* Problem [...] of this encounter (statuses as of 10/05/2021) [facility] of [facility] illness Narrative* Problem [...] of this encounter (statuses as of 10/11/2021) [facility] Narrative* Problem [...] of this encounter (statuses as of 10/16/2021) [facility] Narrative* Problem [...] of this encounter (statuses as of 10/27/2021) [facility] Narrative* Problem [...] of this encounter (statuses as of 11/20/2021) [facility] Narrative* Problem [...] of this encounter (statuses as of 12/12/2021) [facility] Narrative* Problem [...] of this encounter (statuses as of 12/13/2021) [facility] Narrative* Problem [...] of this encounter (statuses as of 12/14/2021) [facility] Narrative* Problem [...] of this encounter (statuses as of 01/01/2022) [facility] Narrative* Problem [...] of this encounter (statuses as of 01/02/2022) [facility] Narrative* Problem [...] of this encounter (statuses as of 01/02/2022) [facility] Narrative* Problem [...] of this encounter (statuses as of 01/06/2022) [facility] Narrative* Problem [...] of this encounter (statuses as of 01/10/2022) [facility] Narrative* Problem [...] of this encounter (statuses as of 01/11/2022) [facility] Narrative* Problem [...] of this encounter (statuses as of 01/12/2022) [facility] Narrative* Problem [...] of this encounter (statuses as of 01/12/2022) [facility] Narrative* Problem [...] of this encounter (statuses as of 01/19/2022) [facility] Narrative* Problem [...] of this encounter (statuses as of 01/23/2022) [facility] Narrative* Problem [...] of this encounter (statuses as of 01/25/2022) [facility] Narr[facility]* Problem [...] of this encounter (statuses as of 01/30/2022) [facility] Narrative* Problem [...] of this encounter (statuses as of 02/01/2022) [facility]arrative* Problem [...] of this encounter (statuses as of 02/02/2022) [facility] Narrative* Problem [...] of this encounter (statuses as of 02/02/2022) [facility]arrative* Problem [...] of this encounter (statuses as of 02/06/2022) [facility]* Problem [...] of this encounter (statuses as of 02/09/2022) [facility]* Problem [...] of this encounter (statuses as of 02/14/2022) [facility]* Problem [...] of this encounter (statuses as of 02/26/2022) [facility]* Problem [...] of this encounter (statuses as of 03/02/2022) [facility]* Problem [...] of this encounter (statuses as of 03/05/2022) [facility]* Problem [...] of this encounter (statuses as of 03/07/2022) [facility]* Problem [...] of this encounter (statuses as of 03/08/2022) [facility]* Problem [...] of this encounter (statuses as of 03/09/2022) [facility]* Problem [...] of this encounter (statuses as of 03/12/2022) [facility]* Problem [...] of this encounter (statuses as of 03/16/2022) [facility]* Problem [...] of this encounter (statuses as of 03/23/2022) [facility]* Problem [...] of this encounter (statuses as of 04/03/2022) [facility]* Problem [...] of this encounter (statuses as of 04/04/2022) [facility]* Problem [...] of this encounter (statuses as of 04/06/2022) [facility]* Problem [...] of this encounter (statuses as of 04/17/2022) [facility]* Problem [...] of this encounter (statuses as of 04/17/2022) [facility]* Problem [...] of this encounter (statuses as of 04/19/2022) [facility]* Problem [...] of this encounter (statuses as of 05/16/2022) [facility]* Problem [...] of this encounter (statuses as of 06/25/2022) [facility]* Problem [...] of this encounter (statuses as of 07/14/2022) [facility]* Problem [...] of this encounter (statuses as of 07/15/2022) [facility]* Problem [...] of this encounter (statuses as of 07/18/2022) [facility]* Problem [...] of this encounter (statuses as of 07/18/2022) [facility]* Problem [...] of this encounter (statuses as of 07/19/2022) [facility]* Problem [...] of this encounter (statuses as of 07/20/2022) [facility]* Problem [...] of this encounter (statuses as of 07/25/2022) [facility]* Problem [...] of this encounter (statuses as of 07/26/2022) [facility]* Problem [...] of this encounter (statuses as of 07/27/2022) [facility]* Problem [...] of this encounter (statuses as of 07/31/2022) [facility]* Problem [...] of this encounter (statuses as of 08/06/2022) [facility]* Problem [...] of this encounter (statuses as of 08/07/2022) [address] History of Past illness Narrative* Problem [...] of this encounter (statuses as of 08/09/2022) [address] History of Past illness Narrative* Problem [...] of this encounter (statuses as of 08/14/2022) [facility]* Problem [...] of this encounter (statuses as of 08/16/2022) [facility]* Problem [...] of this encounter (statuses as of 08/28/2022) [facility]* Problem [...] of this encounter (statuses as of 09/07/2022) [facility]* Problem [...] of this encounter (statuses as of 09/09/2022) [facility]* Problem [...] of this encounter (statuses as of 09/25/2022) [facility]* Problem [...] of this encounter (statuses as of 10/23/2022) [facility]* Problem [...] of this encounter (statuses as of 11/20/2022) [facility]* Problem [...] of this encounter (statuses as of 11/20/2022) [facility]* Problem [...] of this encounter (statuses as of 12/13/2022) [facility]* Problem [...] of this encounter (statuses as of 12/14/2022) [facility]* Problem [...] of this encounter (statuses as of 12/18/2022) [facility]* Problem [...] of this encounter (statuses as of 12/25/2022) [facility]* Problem [...] of this encounter (statuses as of 12/27/2022) [facility]* Problem [...] of this encounter (statuses as of 12/31/2022) [facility]* Problem [...] of this encounter (statuses as of 01/03/2023) [facility]* Problem [...] of this encounter (statuses as of 01/04/2023) [facility]* Problem [...] of this encounter (statuses as of 01/04/2023) [facility]* Problem [...] of this encounter (statuses as of 01/25/2023) [facility]* Problem [...] of this encounter (statuses as of 01/29/2023) [facility] [place] note* Diagnosis Type 2 diabetes mellitus with diabetic neuropathy, with long-term current use of insulin (HCC) Status post aortic valve repair Other postprocedural status Chronic anticoagulation Long-term (current) use of anticoagulants documented in this encounter [facility] [place] [facility]* Diagnosis Colon cancer screening Special screening [...] Diagnosis COVID-19- Primary [facility] [place] [facility]* Diagnosis Hyperlipidemia with target LDL less than 100- Primary Other and unspecified hyperlipidemia Primary hypertension Unspecified essential hypertension Thoracic aortic aneurysm without rupture (HCC) Thoracic aneurysm without mention of rupture 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 Syncope, unspecified syncope type Obesity, Class II, BMI 35-39.9 Obesity, unspecified documented [facility] [place] [facility]* Diagnosis Syncope and collapse- Primary Altered mental status, unspecified altered mental status type Urinary incontinence, unspecified type Benign prostatic hyperplasia with nocturia Nocturia Vitamin D deficiency, unspecified Wound of left lower extremity, initial encounter Encounter for screening for malignant neoplasm of prostate Special screening for malignant neoplasm of prostate [facility] Diagnosis Abnormality of gait due to impairment of balance- Primary Altered mental status, unspecified altered mental status type [facility]* Diagnosis Chronic anticoagulation Long-term (current) use of anticoagulants Thoracic aortic aneurysm without rupture (HCC) Thoracic aneurysm without mention of rupture Status post aortic valve repair Other postprocedural status [facility]* Diagnosis Type 2 diabetes mellitus with diabetic neuropathy, with long-term current use of insulin (HCC)- Primary [facility]* Diagnosis Abnormality of gait due [...] vitamin D deficiency [facility]* Diagnosis Type 2 diabetes mellitus with stage 3 chronic kidney disease, with long-term current use of insulin (HCC) [facility] Diagnosis Abnormality of gait due to impairment of balance- Primary [facility]* Diagnosis Type 2 diabetes mellitus with diabetic neuropathy, with long-term current use of insulin ([facility]) [facility] Diagnosis Abnormality of gait due [...] Abnormal coagulation profile ANTHONY (acute kidney injury) ([facility]) Acute kidney failure, unspecified [facility] Diagnosis Abnormality of gait due [...] polyneuropathy associated with type 2 diabetes mellitus ([facility]) [facility]* Diagnosis Generalized weakness- Primary Other malaise and fatigue Encounter for immunization Need for other specified prophylactic vaccination against single bacterial disease Mild depression Depressive disorder, not elsewhere classified [facility]* Diagnosis Generalized anxiety disorder- Primary [...] mellitus (HCC) NSTEMI (non-ST elevated myocardial infarction) ([facility]) Acute myocardial infarction, subendocardial infarction, episode [...] disease, with long-term current use of insulin ([facility]) 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, macular edema presence unspecified ([facility]) [facility] Diagnosis Driving safety issue- Primary Other specified personal history presenting hazards to health [facility]* Diagnosis Onychomycosis- Primary Dermatophytosis of nail Pain in toe of left foot Pain in limb Amputated toe of right foot ([facility]) Diabetic polyneuropathy associated with type 2 diabetes mellitus ([facility]) [facility]* Diagnosis Spinal stenosis, lumbar region, without neurogenic claudication- Primary Primary osteoarthritis of both knees Primary localized osteoarthrosis, lower leg documented in this encounter [facility] ClinicEvaluation note* Diagnosis Spinal stenosis, lumbar region, without neurogenic claudication- Primary Primary osteoarthritis of both knees Primary localized osteoarthrosis, lower leg [facility] Diagnosis Spinal stenosis, lumbar region, without neurogenic claudication- Primary Primary osteoarthritis of both knees Primary localized osteoarthrosis, lower leg [facility] Diagnosis Spinal stenosis, lumbar region, without neurogenic claudication- Primary Primary osteoarthritis of both knees Primary localized osteoarthrosis, lower leg [facility] Diagnosis Spinal stenosis, lumbar region, without neurogenic claudication- Primary Primary osteoarthritis of both knees Primary localized osteoarthrosis, lower leg [facility] Diagnosis Spinal stenosis, lumbar region, without neurogenic claudication- Primary Primary osteoarthritis of both knees Primary localized osteoarthrosis, lower leg [facility] N[facility]ative No data available for this section [facility] Discharge instructions No data available for this section [facility] Progress note No data available for this section [facility] Reason for referral (narrative)* Outpatient Procedure (Routine) - Closed Specialty Diagnoses / Procedures Referred By Contac t Referred To [facility] Diagnoses Colon cancer screening Procedures COLONOSCOPY SCREENING COLONOSCOPY FLX DX W/COLLJ SPEC WHEN PFMarcella Cho PA-C [address] [place] [address] [facility] Disease Mary Esther [address] [phone] Referral ID Status Reason Start Date Expiration Date V isits Requested Visits Authorized [id number] Closed Auto-Generate d Referral 08/16/2021 08/16/2022 1 1 [facility] for referral (narrative)* Outpatient Procedure (Routine) - Closed Specialty Diagnoses / Procedures Referred By Contac t Referred To Contact [facility] Diagnoses Colon cancer screening Procedures COLONOSCOPY SCREENING COLONOSCOPY FLX DX W/COLLJ SPEC WHEN Marcella Alatorre PA-C [address] [place] [address] [facility] Disease Mary Esther [address] [place] [id number] Referral ID Status Reason Start Date Expiration Date V isits Requested Visits Authorized [id number] Closed Auto-Generate d Referral 08/16/2021 08/16/2022 1 1 [facility] for visit Narrative* Outpatient Procedure (Routine) - Closed Specialty Diagnoses / Procedures Referred By Contac t Referred To Contact [facility] Diagnoses Colon cancer screening Procedures COLONOSCOPY SCREENING COLONOSCOPY FLX DX W/COLLJ SPEC WHEN PFMarcella Cho PA-C [address] [place] [address] [facility] [address] [place] [id number] Referral ID Status Reason Start Date Expiration Date V isits Requested Visits Authorized [id number] Closed Auto-Generate d Referral 08/16/2021 08/16/2022 1 1 [facility] Procedure (Routine) - Closed Specialty Diagnoses / Procedures Referred By Linn carrillo Referred [facility] Diagnoses Chronic anticoagulation Thoracic aortic aneurysm without rupture (HCC) Status post aortic valve repair Procedures ECHO TTE W/DOPPLER, COMPLETE Justina Hadley, PELLET MACHINE OPERATOR.APPEALS SPECIALIST [address] [place] [address] [facility] [address] [address] Referral ID Status Reason Start Date Expiration Date V isits Requested Visits Authorized [id number] Closed Auto-Generate d Referral 07/03/2021 07/03/2022 1 1 [facility] Advance Directives No Advanced Directives Records FoundDocuments on File Type Date Recorded Patient Valve Technician Expl anation Advance Directive(s) 09/12/2021 7:14 AM Documents on File Type Date Recorded Patient Valve Technician Expl anation Advance Directive(s) 09/12/2021 7:14 AM [...] Diagnoses Driving safety issue Procedures CONSULT TO SUPERVISOR [facility]ER[facility] EVAL HIGH COMPLEX 60 MINS Tamie Kaur MD [address] [place] [address] [facility] [address] [place] [id number] Referral ID Status Reason Start Date Expiration Date Visits Requested Visits Authorized [id number] Authorized PCP Requested Referral Auto-Generate d Referral 09/07/2022 09/07/2023 99 99 Specialty Diagnoses / Procedures Referred By Contac t Referred To Contact [facility] Diagnoses Polyneuropathy Procedures CONSULT TO PHYSICAL THERAPY PHYSICAL THERAPY EVALUATION HIGH COMPLEX 45 MINS Tamie Kaur MD [address] [place] [address] [facility] [address] [address] Referral ID Status Reason Start Date Expiration Date Visits Requested Visits Authorized [id number] Authorized PCP Requested Referral Auto-Generate d Referral 04/17/2022 04/17/2023 99 99 Specialty Diagnoses / Procedures Referred By Contac t Referred To Contact Psychology Diagnoses Generalized anxiety disorder Procedures CONSULT TO PSYCHOLOGY OFFICE/OUTPATIENT [facility] 60-74 MINUTES Tamie Kaur MD [address] [phone] Referral ID Status Reason Start Date Expiration Date Visits Requested Visits Authorized [id number] Pending Review PCP Requested Referral 04/17/2022 04/17/2023 1 1 Specialty Diagnoses / Procedures Referred By Contac t Referred To Contact Podiatry Diagnoses Type 2 diabetes mellitus with diabetic neuropathy, with long-term current use of insulin (HCC) Procedures CONSULT TO PODIATRY OFFICE/OUTPATIENT [facility] 60-74 MINUTES PodlogRoselia hernandez APRN.APPEALS SPECIALIST [address] [place] [address] Referral ID Status Reason Start Date Expiration Date Visits Requested Visits Authorized [id number] Authorized PCP Requested Referral 01/12/2022 01/11/2023 1 1 Specialty Diagnoses / Procedures Referred By Contac t Referred To Contact [facility] Diagnoses Altered mental status, unspecified altered mental status type Procedures CONSULT TO SPEECH THERAPY OFFICE/OUTPATIENT [facility] 60-74 MINUTES Tamie Kaur MD [address] [place] [id number] [facility] [address] [address] Referral ID Status Reason Start Date Expiration Date Visits Requested Visits Authorized [id number] Authorized Auto-Generat ed Referral 01/05/2022 01/05/2023 99 99 Specialty Diagnoses / Procedures Referred By Contac t Referred To Contact [facility] Diagnoses Abnormality of gait due to impairment of balance Procedures CONSULT TO PHYSICAL THERAPY PHYSICAL THERAPY EVALUATION HIGH COMPLEX 45 MINS Tamie Kaur MD [address] [place] [address] [facility] [place] [address] Referral ID Status Reason Start Date Expiration Date Visits Requested Visits Authorized [id number] Authorized PCP Requested Referral Auto-Generate d Referral 01/05/2022 01/05/2023 99 99 Specialty Diagnoses / Procedures Referred By Contac t Referred To Contact [facility] Diagnoses Altered mental status, unspecified altered mental status type Procedures EPIL EEG ROUTINE ELECTROENCEPHALOGRAM REC COMA/SLEEP ONLY Tamie Kaur MD [address] [place] [address] [place] [address] Referral ID Status Reason Start Date Expiration Date Visits Requested Visits Authorized [id number] Authorized Auto-Generat ed Referral 01/05/2022 01/05/2023 1 1 Specialty Diagnoses / Procedures Referred By Contac t Referred To Contact Neurology Diagnoses Altered mental status, unspecified altered mental status type Procedures CONSULT TO NEUROLOGY OFFICE/OUTPATIENT [facility] 60-74 MINUTES Abdulaziz Caldera MD [address] [place] [address] Referral ID Status Reason Start Date Expiration Date Visits Requested Visits Authorized [id number] Authorized PCP Requested Referral 01/01/2022 01/01/2023 1 [...] or prosecute any alcohol or drug abuse patient.[facility] the event this information is protected by the Federal Confidentiality of Alcohol and Drug Abuse Patient Records regulations: The Federal rules restrict any use of the information to criminally investigate or prosecute any alcohol or drug abuse patient.[facility] the event this information is protected by the Federal Confidentiality of Alcohol and Drug Abuse Patient Records regulations: The Federal rules restrict any use of the information to criminally investigate or prosecute any alcohol or drug abuse patient.[facility] the event this information is protected by the Federal Confidentiality of Alcohol and Drug Abuse Patient Records regulations: The Federal rules restrict any use of the information to criminally investigate or prosecute any alcohol or drug abuse patient.[facility] the event this information is protected by the Federal Confidentiality of Alcohol and Drug Abuse Patient Records regulations: The Federal rules restrict any use of the information to criminally investigate or prosecute any alcohol or drug abuse patient.[facility] the event this information is protected by the Federal Confidentiality of Alcohol and Drug Abuse Patient Records regulations: The Federal rules restrict any use of the information to criminally investigate or prosecute any alcohol or drug abuse patient.[facility] the event this information is protected by the Federal Confidentiality of Alcohol and Drug Abuse Patient Records regulations: The Federal rules restrict any use of the information to criminally investigate or prosecute any alcohol or drug abuse patient.[facility] the event this information is protected by the Federal Confidentiality of Alcohol and Drug Abuse Patient Records regulations: The Federal rules restrict any use of the information to criminally investigate or prosecute any alcohol or drug abuse patient.[facility] the event this information is protected by the Federal Confidentiality of Alcohol and Drug Abuse Patient Records regulations: The Federal rules restrict any use of the information to criminally investigate or prosecute any alcohol or drug abuse patient.[facility] the event this information is protected by the Federal Confidentiality of Alcohol and Drug Abuse Patient Records regulations: The Federal rules restrict any use of the information to criminally investigate or prosecute any alcohol or drug abuse patient.[facility]In the event this information is protected by the Federal Confidentiality of Alcohol and Drug Abuse Patient Records regulations: The Federal rules restrict any use of the information to criminally investigate or prosecute any alcohol or drug abuse patient.[facility]In the event this information is protected by the Federal Confidentiality of Alcohol and Drug Abuse Patient Records regulations: The Federal rules restrict any use of the information to criminally investigate or prosecute any alcohol or drug abuse patient.[facility] the event this information is protected by the Federal Confidentiality of Alcohol and Drug Abuse Patient Records regulations: The Federal rules restrict any use of the information to criminally investigate or prosecute any alcohol or drug abuse patient.[facility]In the event this information is protected by the Federal Confidentiality of Alcohol and Drug Abuse Patient Records regulations: The Federal rules restrict any use of the information to criminally investigate or prosecute any alcohol or drug abuse patient.[facility] the event this information is protected by the Federal Confidentiality of Alcohol and Drug Abuse Patient Records regulations: The Federal rules restrict any use of the information to criminally investigate or prosecute any alcohol or drug abuse patient.[facility]In the event this information is protected by the Federal Confidentiality of Alcohol and Drug Abuse Patient Records regulations: The Federal rules restrict any use of the information to criminally investigate or prosecute any alcohol or drug abuse patient.[facility]In the event this information is protected by the Federal Confidentiality of Alcohol and Drug Abuse Patient Records regulations: The Federal rules restrict any use of the information to criminally investigate or prosecute any alcohol or drug abuse patient.[facility]In the event this information is protected by the Federal Confidentiality of Alcohol and Drug Abuse Patient Records regulations: The Federal rules restrict any use of the information to criminally investigate or prosecute any alcohol or drug abuse patient.[facility]In the event this information is protected by the Federal Confidentiality of Alcohol and Drug Abuse Patient Records regulations: The Federal rules restrict any use of the information to criminally investigate or prosecute any alcohol or drug abuse patient.[facility]In the event this information is protected by the Federal Confidentiality of Alcohol and Drug Abuse Patient Records regulations: The Federal rules restrict any use of the information to criminally investigate or prosecute any alcohol or drug abuse patient.[facility] the event this information is protected by the Federal Confidentiality of Alcohol and Drug Abuse Patient Records regulations: The Federal rules restrict any use of the information to criminally investigate or prosecute any alcohol or drug abuse patient.[facility]In the event this information is protected by the Federal Confidentiality of Alcohol and Drug Abuse Patient Records regulations: The Federal rules restrict any use of the information to criminally investigate or prosecute any alcohol or drug abuse patient.[facility]In the event this information is protected by the Federal Confidentiality of Alcohol and Drug Abuse Patient Records regulations: The Federal rules restrict any use of the information to criminally investigate or prosecute any alcohol or drug abuse patient.[facility]In the event this information is protected by the Federal Confidentiality of Alcohol and Drug Abuse Patient Records regulations: The Federal rules restrict any use of the information to criminally investigate or prosecute any alcohol or drug abuse patient.[facility]In the event this information is protected by the Federal Confidentiality of Alcohol and Drug Abuse Patient Records regulations: The Federal rules restrict any use of the information to criminally investigate or prosecute any alcohol or drug abuse patient.[facility]In the event this information is protected by the Federal Confidentiality of Alcohol and Drug Abuse Patient Records regulations: The Federal rules restrict any use of the information to criminally investigate or prosecute any alcohol or drug abuse patient.[facility]In the event this information is protected by the Federal Confidentiality of Alcohol and Drug Abuse Patient Records regulations: The Federal rules restrict any use of the information to criminally investigate or prosecute any alcohol or drug abuse patient.[facility]In the event this information is protected by the Federal Confidentiality of Alcohol and Drug Abuse Patient Records regulations: The Federal rules restrict any use of the information to criminally investigate or prosecute any alcohol or drug abuse patient.[facility]In the event this information is protected by the Federal Confidentiality of Alcohol and Drug Abuse Patient Records regulations: The Federal rules restrict any use of the information to criminally investigate or prosecute any alcohol or drug abuse patient.[facility]In the event this information is protected by the Federal Confidentiality of Alcohol and Drug Abuse Patient Records regulations: The Federal rules restrict any use of the information to criminally investigate or prosecute any alcohol or drug abuse patient.[facility]In the event this information is protected by the Federal Confidentiality of Alcohol and Drug Abuse Patient Records regulations: The Federal rules restrict any use of the information to criminally investigate or prosecute any alcohol or drug abuse patient.[facility]In the event this information is protected by the Federal Confidentiality of Alcohol and Drug Abuse Patient Records regulations: The Federal rules restrict any use of the information to criminally investigate or prosecute any alcohol or drug abuse patient.[facility]In the event this information is protected by the Federal Confidentiality of Alcohol and Drug Abuse Patient Records regulations: The Federal rules restrict any use of the information to criminally investigate or prosecute any alcohol or drug abuse patient.[facility]In the event this information is protected by the Federal Confidentiality of Alcohol and Drug Abuse Patient Records regulations: The Federal rules restrict any use of the information to criminally investigate or prosecute any alcohol or drug abuse patient.[facility]In the event this information is protected by the Federal Confidentiality of Alcohol and Drug Abuse Patient Records regulations: The Federal rules restrict any use of the information to criminally investigate or prosecute any alcohol or drug abuse patient.[facility]In the event this information is protected by the Federal Confidentiality of Alcohol and Drug Abuse Patient Records regulations: The Federal rules restrict any use of the information to criminally investigate or prosecute any alcohol or drug abuse patient.[facility]In the event this information is protected by the Federal Confidentiality of Alcohol and Drug Abuse Patient Records regulations: The Federal rules restrict any use of the information to criminally investigate or prosecute any alcohol or drug abuse patient.[facility]In the event this information is protected by the Federal Confidentiality of Alcohol and Drug Abuse Patient Records regulations: The Federal rules restrict any use of the information to criminally investigate or prosecute any alcohol or drug abuse patient.[facility]In the event this information is protected by the Federal Confidentiality of Alcohol and Drug Abuse Patient Records regulations: The Federal rules restrict any use of the information to criminally investigate or prosecute any alcohol or drug abuse patient.[facility]In the event this information is protected by the Federal Confidentiality of Alcohol and Drug Abuse Patient Records regulations: The Federal rules restrict any use of the information to criminally investigate or prosecute any alcohol or drug abuse patient.[facility]In the event this information is protected by the Federal Confidentiality of Alcohol and Drug Abuse Patient Records regulations: The Federal rules restrict any use of the information to criminally investigate or prosecute any alcohol or drug abuse patient.[facility]In the event this information is protected by the Federal Confidentiality of Alcohol and Drug Abuse Patient Records regulations: The Federal rules restrict any use of the information to criminally investigate or prosecute any alcohol or drug abuse patient.[facility]In the event this information is protected by the Federal Confidentiality of Alcohol and Drug Abuse Patient Records regulations: The Federal rules restrict any use of the information to criminally investigate or prosecute any alcohol or drug abuse patient.[facility]In the event this information is protected by the Federal Confidentiality of Alcohol and Drug Abuse Patient Records regulations: The Federal rules restrict any use of the information to criminally investigate or prosecute any alcohol or drug abuse patient.[facility]In the event this information is protected by the Federal Confidentiality of Alcohol and Drug Abuse Patient Records regulations: The Federal rules restrict any use of the information to criminally investigate or prosecute any alcohol or drug abuse patient.[facility]In the event this information is protected by the Federal Confidentiality of Alcohol and Drug Abuse Patient Records regulations: The Federal rules restrict any use of the information to criminally investigate or prosecute any alcohol or drug abuse patient.[facility]In the event this information is protected by the Federal Confidentiality of Alcohol and Drug Abuse Patient Records regulations: The Federal rules restrict any use of the information to criminally investigate or prosecute any alcohol or drug abuse patient.[facility]In the event this information is protected by the Federal Confidentiality of Alcohol and Drug Abuse Patient Records regulations: The Federal rules restrict any use of the information to criminally investigate or prosecute any alcohol or drug abuse patient.[facility]In the event this information is protected by the Federal Confidentiality of Alcohol and Drug Abuse Patient Records regulations: The Federal rules restrict any use of the information to criminally investigate or prosecute any alcohol or drug abuse patient.[facility]In the event this information is protected by the Federal Confidentiality of Alcohol and Drug Abuse Patient Records regulations: The Federal rules restrict any use of the information to criminally investigate or prosecute any alcohol or drug abuse patient.[facility]In the event this information is protected by the Federal Confidentiality of Alcohol and Drug Abuse Patient Records regulations: The Federal rules restrict any use of the information to criminally investigate or prosecute any alcohol or drug abuse patient.[facility]In the event this information is protected by the Federal Confidentiality of Alcohol and Drug Abuse Patient Records regulations: The Federal rules restrict any use of the information to criminally investigate or prosecute any alcohol or drug abuse patient.[facility]In the event this information is protected by the Federal Confidentiality of Alcohol and Drug Abuse Patient Records regulations: The Federal rules restrict any use of the information to criminally investigate or prosecute any alcohol or drug abuse patient.[facility]In the event this information is protected by the Federal Confidentiality of Alcohol and Drug Abuse Patient Records regulations: The Federal rules restrict any use of the information to criminally investigate or prosecute any alcohol or drug abuse patient.[facility]In the event this information is protected by the Federal Confidentiality of Alcohol and Drug Abuse Patient Records regulations: The Federal rules restrict any use of the information to criminally investigate or prosecute any alcohol or drug abuse patient.[facility]In the event this information is protected by the Federal Confidentiality of Alcohol and Drug Abuse Patient Records regulations: The Federal rules restrict any use of the information to criminally investigate or prosecute any alcohol or drug abuse patient.[facility]In the event this information is protected by the Federal Confidentiality of Alcohol and Drug Abuse Patient Records regulations: The Federal rules restrict any use of the information to criminally investigate or prosecute any alcohol or drug abuse patient.[facility] HospitalIn the event this information is protected by the Federal Confidentiality of Alcohol and Drug Abuse Patient Records regulations: The Federal rules restrict any use of the information to criminally investigate or prosecute any alcohol or drug abuse patient.[facility] HospitalIn the event this information is protected by the Federal Confidentiality of Alcohol and Drug Abuse Patient Records regulations: The Federal rules restrict any use of the information to criminally investigate or prosecute any alcohol or drug abuse patient.[facility]In the event this information is protected by the Federal Confidentiality of Alcohol and Drug Abuse Patient Records regulations: The Federal rules restrict any use of the information to criminally investigate or prosecute any alcohol or drug abuse patient.[facility]In the event this information is protected by the Federal Confidentiality of Alcohol and Drug Abuse Patient Records regulations: The Federal rules restrict any use of the information to criminally investigate or prosecute any alcohol or drug abuse patient.[facility]In the event this information is protected by the Federal Confidentiality of Alcohol and Drug Abuse Patient Records regulations: The Federal rules restrict any use of the information to criminally investigate or prosecute any alcohol or drug abuse patient.[facility]In the event this information is protected by the Federal Confidentiality of Alcohol and Drug Abuse Patient Records regulations: The Federal rules restrict any use of the information to criminally investigate or prosecute any alcohol or drug abuse patient.[facility]In the event this information is protected by the Federal Confidentiality of Alcohol and Drug Abuse Patient Records regulations: The Federal rules restrict any use of the information to criminally investigate or prosecute any alcohol or drug abuse patient.[facility]In the event this information is protected by the Federal Confidentiality of Alcohol and Drug Abuse Patient Records regulations: The Federal rules restrict any use of the information to criminally investigate or prosecute any alcohol or drug abuse patient.[facility]In the event this information is protected by the Federal Confidentiality of Alcohol and Drug Abuse Patient Records regulations: The Federal rules restrict any use of the information to criminally investigate or prosecute any alcohol or drug abuse patient.[facility]In the event this information is protected by the Federal Confidentiality of Alcohol and Drug Abuse Patient Records regulations: The Federal rules restrict any use of the information to criminally investigate or prosecute any alcohol or drug abuse patient.[facility]In the event this information is protected by the Federal Confidentiality of Alcohol and Drug Abuse Patient Records regulations: The Federal rules restrict any use of the information to criminally investigate or prosecute any alcohol or drug abuse patient.[facility] HospitalIn the event this information is protected by the Federal Confidentiality of Alcohol and Drug Abuse Patient Records regulations: The Federal rules restrict any use of the information to criminally investigate or prosecute any alcohol or drug abuse patient.[facility]In the event this information is protected by the Federal Confidentiality of Alcohol and Drug Abuse Patient Records regulations: The Federal rules restrict any use of the information to criminally investigate or prosecute any alcohol or drug abuse patient.[facility]In the event this information is protected by the Federal Confidentiality of Alcohol and Drug Abuse Patient Records regulations: The Federal rules restrict any use of the information to criminally investigate or prosecute any alcohol or drug abuse patient.[facility]In the event this information is protected by the Federal Confidentiality of Alcohol and Drug Abuse Patient Records regulations: The Federal rules restrict any use of the information to criminally investigate or prosecute any alcohol or drug abuse patient.[facility] HospitalIn the event this information is protected by the Federal Confidentiality of Alcohol and Drug Abuse Patient Records regulations: The Federal rules restrict any use of the information to criminally investigate or prosecute any alcohol or drug abuse patient.[facility] HospitalIn the event this information is protected by the Federal Confidentiality of Alcohol and Drug Abuse Patient Records regulations: The Federal rules restrict any use of the information to criminally investigate or prosecute any alcohol or drug abuse patient.[facility] HospitalIn the event this information is protected by the Federal Confidentiality of Alcohol and Drug Abuse Patient Records regulations: The Federal rules restrict any use of the information to criminally investigate or prosecute any alcohol or drug abuse patient.[facility] HospitalIn the event this information is protected by the Federal Confidentiality of Alcohol and Drug Abuse Patient Records regulations: The Federal rules restrict any use of the information to criminally investigate or prosecute any alcohol or drug abuse patient.[facility] HospitalIn the event this information is protected by the Federal Confidentiality of Alcohol and Drug Abuse Patient Records regulations: The Federal rules restrict any use of the information to criminally investigate or prosecute any alcohol or drug abuse patient.[facility]In the event this information is protected by the Federal Confidentiality of Alcohol and Drug Abuse Patient Records regulations: The Federal rules restrict any use of the information to criminally investigate or prosecute any alcohol or drug abuse patient.[facility]In the event this information is protected by the Federal Confidentiality of Alcohol and Drug Abuse Patient Records regulations: The Federal rules restrict any use of the information to criminally investigate or prosecute any alcohol or drug abuse patient.[facility] Reason for Visit (unrecogniz ed section and content) Specialty Diagnoses / Procedures Referred By Linn carrillo Referred To Contact [facility] Diagnoses Abnormality of gait due to impairment of balance Procedures CONSULT TO PHYSICAL THERAPY PHYSICAL THERAPY EVALUATION HIGH COMPLEX 45 MINS Tamie Kaur MD [address] [place] [address] [facility] [address] [address] Referral ID Status Reason Start Date Expiration Date Visits Requested Visits Authorized [id number] Authorized PCP Requested Referral Auto-Generate d Referral [...] 6 mo Reason Comments Hospital Follow Up [facility] discharged Reason Comments Results Reason Comments Consult altered mental statu s Specialty Diagnoses / Procedures Referred By Linn carrillo Referred To Contact Neurology Diagnoses Altered mental status, unspecified altered mental status type Procedures CONSULT TO NEUROLOGY OFFICE/OUTPATIENT [facility] MDM 60-74 MINUTES Abdulaziz Caldera MD [address] [place] [address] Referral ID Status Reason Start Date Expiration Date V isits Requested Visits Authorized [id number] Closed PCP Requested Referral 01/01/2022 01/01/2023 1 [...] HIGH MDM 60-74 MINUTES Abdulaziz Caldera MD [address] [place] [address] Referral ID Status Reason Start Date Expiration Date V isits Requested Visits Authorized [id number] Closed PCP Requested Referral 07/12/2022 07/12/2023 1 [...] Care Teams (unrecognized sec tion and content) Office Clinician Relationship Specialty Start Date End Date Abdulaziz Caldera MD [address] [place] [address] PCP - General Family Practice 11/23/20 Office Clinician Relationship Specialty Start Date End Date Abdulaziz Caldera MD [address] [facility] [place] [address] PCP - General Family Practice 11/23/20 Office Clinician Relationship Specialty Start Date End Date Abdulaziz Caldera MD [address] [place] [place] [address] PCP - General Family Practice 11/23/20 Office Clinician Relationship Specialty Start Date End Date Abdulaziz Caldera MD [address] [place] [place] [address] PCP - General Family Practice 11/23/20 Office Clinician Relationship Specialty Start Date End Date Abdulaziz Caldera MD [facility] [place] [address] PCP - General Family Practice 11/23/20 Office Clinician Relationship Specialty Start Date End Date Abdulaziz Caldera MD [address] [place] [place] [address] PCP - General Family Practice 11/23/20 Office Clinician Relationship Specialty Start Date End Date Abdulaziz Caldera MD [address] [place] [place] [address] PCP - General Family Practice 11/23/20 Office Clinician Relationship Specialty Start Date End Date Abdulaziz Caldera MD [address] [place] [place] [address] PCP - General Family Practice 11/23/20 Office Clinician Relationship Specialty Start Date End Date Abdulaziz Caldera MD [address] [place] [place] [address] PCP - General Family Practice 11/23/20 Office Clinician Relationship Specialty Start Date End Date Abdulaziz Caldera MD [address] [place] [place] [address] PCP - General Family Practice 11/23/20 Office Clinician Relationship Specialty Start Date End Date Abdulaziz Caldera MD [address] [place] [place] [address] PCP - General Family Practice 11/23/20 Office Clinician Relationship Specialty Start Date End Date Abdulaziz Caldera MD [address] [place] [place] [address] PCP - General Family Practice 11/23/20 Office Clinician Relationship Specialty Start Date End Date Abdulaziz Caldera MD [address] [place] [place] [address] PCP - General Family Practice 11/23/20 Office Clinician Relationship Specialty Start Date End Date Abdulaziz Caldera MD [address] [place] [place] [address] PCP - General Family Practice 11/23/20 Office Clinician Relationship Specialty Start Date End Date Abdulaziz Caldera MD [address] [place] [address] PCP - General Family Practice 11/23/20 Office Clinician Relationship Specialty Start Date End Date Abdulaziz Caldera MD [address] [place] [address] PCP - General Family Practice 11/23/20 Office Clinician Relationship Specialty Start Date End Date Abdulaziz Caldera MD [address] [place] [place] [address] PCP - General Family Practice 11/23/20 Office Clinician Relationship Specialty Start Date End Date Abdulaziz Caldera MD [address] [place] [address] PCP - General Family Practice 11/23/20 Office Clinician Relationship Specialty Start Date End Date Abdulaziz Caldera MD [address] [place] [address] PCP - General Family Practice 11/23/20 Office Clinician Relationship Specialty Start Date End Date Abdulaziz Caldera MD [address] [place] [place] [address] PCP - General Family Practice 11/23/20 Office Clinician Relationship Specialty Start Date End Date Abdulaziz Caldera MD [address] [place] [place] [address] PCP - General Family Practice 11/23/20 Office Clinician Relationship Specialty Start Date End Date Abdulaziz Caldera MD [address] [place] [address] PCP - General Family Medicine 11/23/20 Office Clinician Relationship Specialty Start Date End Date Abdulaziz Caldera MD [address] [place] [address] PCP - General Family Medicine 11/23/20 Office Clinician Relationship Specialty Start Date End Date Abdulaziz Caldera MD [address] [place] [address] PCP - General Family Medicine 11/23/20 Office Clinician Relationship Specialty Start Date End Date Abdulaziz Caldera MD [address] [place] [address] PCP - General Family Medicine 11/23/20 Office Clinician Relationship Specialty Start Date End Date Abdulaziz Caldera MD [address] [place] [address] PCP - General Family Medicine 11/23/20 Office Clinician Relationship Specialty Start Date End Date Abdulaziz Caldera MD [address] [place] [address] PCP - General Family Medicine 11/23/20 Office Clinician Relationship Specialty Start Date End Date Abdulaziz Caldera MD [address] [place] [address] PCP - General Family Medicine 11/23/20 Office Clinician Relationship Specialty Start Date End Date Abdulaziz Caldera MD [address] [place] [address] PCP - General Family Medicine 11/23/20 Office Clinician Relationship Specialty Start Date End Date Abdulaziz Caldera MD [address] [place] [address] PCP - General Family Medicine 11/23/20 Office Clinician Relationship Specialty Start Date End Date Abdulaziz Caldera MD [address] [place] [place] [address] PCP - General Family Medicine 11/23/20 Office Clinician Relationship Specialty Start Date End Date Abdulaziz Caldera MD [address] [place] [place] [address] PCP - General Family Medicine 11/23/20 Office Clinician Relationship Specialty Start Date End Date Abdulaziz Caldera MD [address] [facility] [place] [address] PCP - General Family Medicine 11/23/20 Office Clinician Relationship Specialty Start Date End Date Abdulaziz Caldera MD [address] [facility] [place] [address] PCP - General Family Medicine 11/23/20 Office Clinician Relationship Specialty Start Date End Date Abdulaziz Caldera MD [address] [facility] [place] [address] PCP - General Family Medicine 11/23/20 Office Clinician Relationship Specialty Start Date End Date Abdulaziz Caldera MD [address] [place] [place] [address] PCP - General Family Medicine 11/23/20 Office Clinician Relationship Specialty Start Date End Date Abdulaziz Caldera MD [address] [place] [address] PCP - General Family Medicine 11/23/20 Office Clinician Relationship Specialty Start Date End Date Abdulaziz Caldera MD [address] [place] [address] PCP - General Family Medicine 11/23/20 Office Clinician Relationship Specialty Start Date End Date Abdulaziz Caldera MD [address] [place] [address] PCP - General Family Medicine 11/23/20 Office Clinician Relationship Specialty Start Date End Date Abdulaziz Caldera MD [address] [place] [address] PCP - General Family Medicine 11/23/20 Office Clinician Relationship Specialty Start Date End Date Abdulaziz Caldera MD [address] [place] [address] PCP - General Family Medicine 11/23/20 Office Clinician Relationship Specialty Start Date End Date Abdulaziz Caldera MD [address] [place] [address] PCP - General Family Medicine 11/23/20 (unrecognized sect ion and content) No Status Records FoundNo Status Records FoundNo Status Records FoundNo Status Records Found INFORMATION SOURCE (unrecogn ized section and content) DATE CREATED AUTHOR AUTHOR'S ORGANIZ ATION 02/04/2022 [facility] DATE CREATED AUTHOR AUTHOR'S ORGANIZ ATION 04/19/2022 [facility] ([place]) DATE CREATED AUTHOR AUTHOR'S DESTINY ATION 05/30/2023 [facility] FOR RECORDS PERTAINING TO PATIENTS WHO [...] BE BASED ON THE PRIMARY CLINICAL RECORDS. [facility] [employer] [facility]. provides no warranty or guarantee of the accuracy or completeness of information in this document.
[2023-08-12 09:28] LABS: INR Fingerstick 2.5; Prothrombin Time Fingerstick 26.7 SEC (11.7-14.9)
== END ==
LOC: OLS.ACH 05:00
PROVIDERS: PCP Family Medicine; Visit Provider Internal Medicine
DX: I48.0 Paroxysmal atrial fibrillation (principal)
CPT/HCPCS: 36416; 85610

== ENCOUNTER → 2023-08-19 | Outpatient (REF) | payer MEDICARE, OTHER, SELFPAY ==
--- OUTSIDE RECORDS SUMMARY | 2023-08-19 03:48 | XMS RPT_ITS | CCD ---
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 anticoagulants; Translations: [Chronic anticoagulation] Onset: 11-06-2018 Episodic Other aftercare (1 source) [facility] (current) use of insulin; Translations: [Type 2 [...] Results Test Name Value Interpretation Reference Range [facility] it Vital Signs Date Time Vital Sign Value Performing Clinician Scott quinn 09-07-2022 11:01-0500 Body height 185.4 cm Tamie Kaur MD Work Phone: [facility] 09-07-2022 11:01-0500 Body weight 113.4 kg Tamie Kaur MD Work Phone: [facility] 09-07-2022 11:01-0500 Diastolic blood pressure 57 mm[Hg] Tamie Kaur MD Work Phone: [facility] 09-07-2022 11:01-0500 Heart rate 64 /min Tamie Kaur MD Work Phone: [facility] 09-07-2022 11:01-0500 Respiratory rate 16 /min Tamie Kaur MD Work Phone: [facility] 09-07-2022 11:01-0500 SaO2% (BldA) [Mass fraction] 99 % Tamie Kaur MD Work Phone: [facility] 09-07-2022 11:01-0500 Systolic blood pressure 124 mm[Hg] Tamie Kaur MD Work Phone: [facility] 08-09-2022 16:35-0500 Body weight 113.4 kg Abdulaziz Caldera MD Work Phone: [facility] 08-09-2022 16:35-0500 Diastolic blood pressure 62 mm[Hg] Abdulaziz Caldera MD Work Phone: [facility] 08-09-2022 16:35-0500 Heart rate 64 /min Abdulaziz Caldera MD Work Phone: [facility] 08-09-2022 16:35-0500 Respiratory rate 16 /min Abdulaziz Caldera MD Work Phone: [facility] 08-09-2022 16:35-0500 SaO2% (BldA) [Mass fraction] 96 % Abdulaziz Caldera MD Work Phone: [facility] 08-09-2022 16:35-0500 Systolic blood pressure 112 mm[Hg] Abdulaziz Caldera MD Work Phone: [facility] 04-17-2022 11:23-0400 Body height 185.4 cm Tamie Kaur MD Work Phone: [facility] 04-17-2022 11:23-0400 Body weight 114.31 kg Tamie Kaur MD Work Phone: [facility] 04-17-2022 11:23-0400 Diastolic blood pressure 71 mm[Hg] Tamie Kaur MD Work Phone: [facility] 04-17-2022 11:23-0400 Heart rate 72 /min Tamie Kaur MD Work Phone: [facility] 04-17-2022 11:23-0400 Respiratory rate 18 /min Tamie Kaur MD Work Phone: [facility] 04-17-2022 11:23-0400 SaO2% (BldA) [Mass fraction] 98 % Tamie Kaur MD Work Phone: [facility] 04-17-2022 11:23-0400 Systolic blood pressure 116 mm[Hg] Tamie Kaur MD Work Phone: [facility] 04-16-2022 13:09-0400 Body height 185.4 cm Abdulaziz Caldera MD Work Phone: [facility] 04-16-2022 13:09-0400 Body weight 114.31 kg Abdulaziz Caldera MD Work Phone: [facility] 04-16-2022 13:09-0400 Diastolic blood pressure 72 mm[Hg] Abdulaziz Caldera MD Work Phone: [facility] 04-16-2022 13:09-0400 Heart rate 70 /min Abdulaziz Caldera MD Work Phone: [facility] 04-16-2022 13:09-0400 Respiratory rate 16 /min Abdulaziz Caldera MD Work Phone: [facility] 04-16-2022 13:09-0400 SaO2% (BldA) [Mass fraction] 98 % Abdulaziz Caldera MD Work Phone: [facility] 04-16-2022 13:09-0400 Systolic blood pressure 132 mm[Hg] Abdulaziz Caldera MD Work Phone: [facility] 04-06-2022 09:36-0400 Body weight 114.31 kg Roselia Madrigal ELECTRICAL DESIGNER DRAFTER.BEEKEEPER FARMER Work Phone: [facility] 04-06-2022 09:36-0400 Diastolic blood pressure 62 mm[Hg] Roselia Podlogar ELECTRICAL DESIGNER DRAFTER.BEEKEEPER FARMER Work Phone: [facility] 04-06-2022 09:36-0400 Heart rate 62 /min Roselia Podlogar ELECTRICAL DESIGNER DRAFTER.BEEKEEPER FARMER Work Phone: [facility] 04-06-2022 09:36-0400 Respiratory rate 16 /min Roselia Podlogar ELECTRICAL DESIGNER DRAFTER.BEEKEEPER FARMER Work Phone: [facility] 04-06-2022 09:36-0400 SaO2% (BldA) [Mass fraction] 97 % Roselia Podlogar ELECTRICAL DESIGNER DRAFTER.BEEKEEPER FARMER Work Phone: [facility] 04-06-2022 09:36-0400 Systolic blood pressure 112 mm[Hg] Roselia Podlogar ELECTRICAL DESIGNER DRAFTER.BEEKEEPER FARMER Work Phone: [facility] 03-07-2022 11:12-0400 Body weight 114.76 kg Abdulaziz Caldera MD Work Phone: [facility] 03-07-2022 11:12-0400 Diastolic blood pressure 70 mm[Hg] Abdulaziz Caldera MD Work Phone: [facility] 03-07-2022 11:12-0400 Heart rate 64 /min Abdulaziz Caldera MD Work Phone: [facility] 03-07-2022 11:12-0400 Respiratory rate 16 /min Abdulaziz Caldera MD Work Phone: [facility] 03-07-2022 11:12-0400 Systolic blood pressure 118 mm[Hg] Abdulaziz Caldera MD Work Phone: [facility] 03-05-2022 12:00-0400 Diastolic blood pressure 60 mm[Hg] Rosa Elena Lemon PT [facility] 03-05-2022 12:00-0400 Systolic blood pressure 112 mm[Hg] Rosa Elena Lemon PT [facility] 01-12-2022 08:00-0400 Diastolic blood pressure 78 mm[Hg] Rosa Elena Lemon PT [facility] 01-12-2022 08:00-0400 Systolic blood pressure 130 mm[Hg] Rosa Elena Lemon PT [facility] 01-05-2022 09:56-0400 Body height 185.4 cm Tamie Kaur MD Work Phone: [facility] 01-05-2022 09:56-0400 Body weight 111.58 kg Tamie Kaur MD Work Phone: [facility] 01-05-2022 09:56-0400 Diastolic blood pressure 62 mm[Hg] Tamie Kaur MD Work Phone: [facility] 01-05-2022 09:56-0400 Heart rate 58 /min Tamie Kaur MD Work Phone: [facility] 01-05-2022 09:56-0400 Respiratory rate 16 /min Tamie Kaur MD Work Phone: [facility] 01-05-2022 09:56-0400 SaO2% (BldA) [Mass fraction] 97 % Tamie Kaur MD Work Phone: [facility] 01-05-2022 09:56-0400 Systolic blood pressure 117 mm[Hg] Tamie Kaur MD Work Phone: [facility] 01-01-2022 10:12-0400 Body temperature 97.39 [degF] Abdulaziz Caldera MD Work Phone: [facility] 01-01-2022 10:12-0400 Body weight 111.77 kg Abdulaziz Caldera MD Work Phone: [facility] 01-01-2022 10:12-0400 Diastolic blood pressure 64 mm[Hg] Abdulaziz Caldera MD Work Phone: [facility] 01-01-2022 10:12-0400 Heart rate 47 /min Abdulaziz Caldera MD Work Phone: [facility] 01-01-2022 10:12-0400 Respiratory rate 18 /min Abdulaziz Caldera MD Work Phone: [facility] 01-01-2022 10:12-0400 SaO2% (BldA) [Mass fraction] 98 % Abdulaziz Caldera MD Work Phone: [facility] 01-01-2022 10:12-0400 Systolic blood pressure 112 mm[Hg] Abdulaziz Caldera MD Work Phone: [facility] 01-01-2022 08:55-0400 Body weight 112.49 kg Justina Leonie ELECTRICAL DESIGNER DRAFTER.BEEKEEPER FARMER Work Phone: [facility] 01-01-2022 08:55-0400 Diastolic blood pressure 74 mm[Hg] Justina Leonie ELECTRICAL DESIGNER DRAFTER.BEEKEEPER FARMER Work Phone: [facility] 01-01-2022 08:55-0400 Heart rate 60 /min Justina Leonie ELECTRICAL DESIGNER DRAFTER.BEEKEEPER FARMER Work Phone: [facility] 01-01-2022 08:55-0400 Respiratory rate 18 /min Justina Leonie ELECTRICAL DESIGNER DRAFTER.BEEKEEPER FARMER Work Phone: [facility] 01-01-2022 08:55-0400 Systolic blood pressure 147 mm[Hg] Justina Leonie ELECTRICAL DESIGNER DRAFTER.BEEKEEPER FARMER Work Phone: [facility] 12-27-2021 21:22-0400 Diastolic blood pressure [...] 98.2 [degF] Abdulaziz Caldera MD Work Phone: [facility] 12-14-2021 15:10-0400 Body weight 110.77 kg Abdulaziz Caldera MD Work Phone: [facility] 12-14-2021 15:10-0400 Diastolic blood pressure 70 mm[Hg] Abdulaziz Caldera MD Work Phone: [facility] 12-14-2021 15:10-0400 Heart rate 54 /min Abdulaziz Caldera MD Work Phone: [facility] 12-14-2021 15:10-0400 Respiratory rate 16 /min Abdulaziz Caldera MD Work Phone: [facility] 12-14-2021 15:10-0400 SaO2% (BldA) [Mass fraction] 96 % Abdulaziz Caldera MD Work Phone: [facility] 12-14-2021 15:10-0400 Systolic blood pressure 130 mm[Hg] Abdulaziz Caldera MD Work Phone: [facility] 12-08-2021 16:23-0400 Diastolic blood pressure 64 mm[Hg] Abdulaziz Caldera MD Work Phone: [facility] 12-08-2021 16:23-0400 Heart rate 85 /min Abdulaziz Caldera MD Work Phone: [facility] 12-08-2021 16:23-0400 Systolic blood pressure 110 mm[Hg] Abdulaziz Caldera MD Work Phone: [facility] 10-23-2021 13:05-0400 Body temperature 97.3 [degF] Marcella Xavier PA-C Work Phone: [facility] 10-23-2021 13:05-0400 Body weight 114.58 kg Marcella Xavier PA-C Work Phone: [facility] 10-23-2021 13:05-0400 Diastolic blood pressure 56 mm[Hg] Marcella Xavier PA-C Work Phone: [facility] 10-23-2021 13:05-0400 Heart rate 85 /min Marcella Jacksboro PA-C Work Phone: [facility] 10-23-2021 13:05-0400 SaO2% (BldA) [Mass fraction] 98 % Marcella Jacksboro PA-C Work Phone: [facility] 10-23-2021 13:05-0400 Systolic blood pressure 132 mm[Hg] Marcella Jacksboro PA-C Work Phone: [facility] 10-10-2021 10:07-0400 Diastolic blood pressure 68 mm[Hg] Richard Jones MD Work Phone: [facility] 10-10-2021 10:07-0400 Heart rate 69 /min Richard Jones MD Work Phone: [facility] 10-10-2021 10:07-0400 Respiratory rate 16 /min Richard Jones MD Work Phone: [facility] 10-10-2021 10:07-0400 SaO2% (BldA) [Mass fraction] 98 % Richard Jones MD Work Phone: [facility] 10-10-2021 10:07-0400 Systolic blood pressure 150 mm[Hg] Richard Jones MD Work Phone: [facility] 10-10-2021 08:01-0400 Body temperature 97 [degF] Richard Jones MD Work Phone: [facility] Encounters Encounter Date Encounter Type Care Provider Facility Start: 01-28-2023 Telephone encounter Luis Caldera MD Work Phone: [facility] [place] Procedures Date Procedure Procedure Detail Performing Clinician Start: 04-06-2022 INFLUENZA SEASONAL QUADRIVALENT HIGH DOSE AGE 65+ Roselia Podlogar ELECTRICAL DESIGNER DRAFTER.BEEKEEPER FARMER Work Phone: Start: 04-06-2022 PFIZER-BIONTECH COVI D-19 BIVALENT BOOSTER VACCINE, AGE 12+ YR Roselia Podlogar ELECTRICAL DESIGNER DRAFTER.BEEKEEPER FARMER Work Phone: Start: 04-06-2022 Adult depression scr eening assessment Roselia Podlogar ELECTRICAL DESIGNER DRAFTER.BEEKEEPER FARMER Work Phone: Start: 03-07-2022 PROTHROMBIN TIME/PT Chr mine Caldera MD Work Phone: Start: 03-07-2022 Adult depression scr eening assessment Abdulaziz Caldera MD Work Phone: Start: 01-09-2022 Echo tthrc r-t 2d w/wom-mode compl spec&colr d Justina E Leonie ELECTRICAL DESIGNER DRAFTER.BEEKEEPER FARMER Work Phone: Start: 01-01-2022 Urnls dip stick/tabl [...] Activity Detail Author Start: 10-11-2031 Colonoscopy COLONOSCOPY [facility] Start: 10-11-2031 COLORECTAL CANCER SCREENING COLORECTAL CANCER SCREENING [facility] Start: 10-10-2024 Colonoscopy COLONOSCOPY [facility] Start: 10-10-2024 COLORECTAL CANCER SCREENING COLORECTAL CANCER SCREENING [facility] Start: 01-05-2024 ANNUAL PCP TEAM CHRONIC DISEASE VISIT ANNUAL PCP TEAM CHRONIC DISEASE VISIT [facility] Start: 01-05-2024 BP CONTROLLED (<130/80) BP CONTROLLED (<130/80) [facility] Start: 12-04-2023 BP CONTROLLED (<130/80) BP CONTROLLED (<130/80) [facility] Start: 11-20-2023 ANNUAL PCP TEAM CHRONIC DISEASE VISIT ANNUAL PCP TEAM CHRONIC DISEASE VISIT [facility] Start: 11-20-2023 BP CONTROLLED (<130/80) BP CONTROLLED (<130/80) [facility] Start: 09-07-2023 BP CONTROLLED (<130/80) BP CONTROLLED (<130/80) [facility] Start: 08-13-2023 HEMOGLOBIN/HEMATOCRIT HEMOGLOBIN/HEMATOCRIT [facility] Start: 08-13-2023 SERUM CREATININE SERUM CREATININE [facility] Start: 08-09-2023 ANNUAL PCP TEAM CHRONIC DISEASE VISIT ANNUAL PCP TEAM CHRONIC DISEASE VISIT [facility] Start: 08-09-2023 BP CONTROLLED (<130/80) BP CONTROLLED (<130/80) [facility] Start: 07-12-2023 ANNUAL PCP TEAM CHRONIC DISEASE VISIT ANNUAL PCP TEAM CHRONIC DISEASE VISIT [facility] Start: 07-12-2023 BP CONTROLLED (<130/80) BP CONTROLLED (<130/80) [facility] Start: 04-17-2023 BP CONTROLLED (<130/80) BP CONTROLLED (<130/80) [facility] Start: 04-16-2023 ANNUAL PCP TEAM CHRONIC DISEASE VISIT ANNUAL PCP TEAM CHRONIC DISEASE VISIT [facility] Start: 04-06-2023 Adult depression screening assessment DEPRESSION SCREENING [facility] Start: 04-06-2023 ANNUAL PCP TEAM CHRONIC DISEASE VISIT ANNUAL PCP TEAM CHRONIC DISEASE VISIT [facility] Start: 04-06-2023 BP CONTROLLED (<130/80) BP CONTROLLED (<130/80) [facility] Start: 03-30-2023 3 comp foot exam completed DIABETIC FOOT EXAM [facility] Start: 03-15-2023 Influenza vaccination INFLUENZA (#1) [facility] Start: 03-07-2023 Adult depression screening assessment DEPRESSION SCREENING [facility] Start: 03-07-2023 ANNUAL PCP TEAM CHRONIC DISEASE VISIT ANNUAL PCP TEAM CHRONIC DISEASE VISIT [facility] Start: 03-07-2023 BP CONTROLLED (<130/80) BP CONTROLLED (<130/80) [facility] Start: 03-07-2023 SERUM CREATININE SERUM CREATININE [facility] Start: 03-05-2023 BP CONTROLLED (<130/80) BP CONTROLLED (<130/80) [facility] Start: 03-02-2023 Hepatitis B screening URINE ALBUMIN:CREATININE RATIO [facility] Start: 02-10-2023 Hemoglobin A1c/Hemoglobin.total in Blood HBA1C [facility] Start: 01-05-2023 BP CONTROLLED (<130/80) BP CONTROLLED (<130/80) [facility] Start: 01-01-2023 ANNUAL PCP TEAM CHRONIC DISEASE VISIT ANNUAL PCP TEAM CHRONIC DISEASE VISIT [facility] Start: 01-01-2023 BP CONTROLLED (<130/80) BP CONTROLLED (<130/80) [facility] Start: 01-01-2023 Hepatitis B surface antibody level LDL CHOLESTEROL [facility] Start: 01-01-2023 SERUM CREATININE SERUM CREATININE [facility] Start: 12-14-2022 ANNUAL PCP TEAM CHRONIC DISEASE VISIT ANNUAL PCP TEAM CHRONIC DISEASE VISIT [facility] Start: 12-08-2022 ANNUAL PCP TEAM CHRONIC DISEASE VISIT ANNUAL PCP TEAM CHRONIC DISEASE VISIT [facility] Start: 12-08-2022 BP CONTROLLED (<130/80) BP CONTROLLED (<130/80) [facility] Start: 09-06-2022 ANNUAL PCP TEAM CHRONIC DISEASE VISIT ANNUAL PCP TEAM CHRONIC DISEASE VISIT [facility] Start: 09-02-2022 Hemoglobin A1c/Hemoglobin.total in Blood HBA1C [facility] Start: 08-30-2022 SERUM CREATININE SERUM CREATININE [facility] Start: 08-09-2022 End: 10-09-2022 CBC W Auto Differential panel - Blood CBC + DIFF Lab Routine Type 2 diabetes mellitus with diabetic neuropathy, with long-term current use of insulin (HCC) Expected: 08/09/2022, Expires: 10/09/2022 [facility] Work Phone: Immunizations Immunization Date Immunization Notes Care Provider Fa cili 04-06-2022 COVID-19 booster vaccine, age 12+ yr, bivalent (PFIZER-BIONTECH) Roselia Podlogdavid ELECTRICAL DESIGNER DRAFTER.BEEKEEPER FARMER Work Phone: [facility] 04-06-2022 influenza, high-dose , quadrivalent vaccine (FLUZONE HIGH DOSE QUADRIVALENT) Roselia Raglandlogdavid ELECTRICAL DESIGNER DRAFTER.BEEKEEPER FARMER Work Phone: [facility] 06-14-2021 influenza, high-dose , quadrivalent vaccine (FLUZONE HIGH DOSE QUADRIVALENT) Abdulaziz Caldera MD Work Phone: [facility] Work Phone: 02-24-2021 zoster vaccine recombinant Abdulaziz Caldera MD Work Phone: [facility] 09-30-2020 COVID-19 vaccine, ag e 12+ yr (PFIZER-BIONTECH - PURPLE TOP) Abdulaziz Caldera MD Work Phone: [facility] 09-09-2020 COVID-19 vaccine, ag e 12+ yr (PFIZER-BIONTECH - PURPLE TOP) Abdulaziz Caldera MD Work Phone: [facility] 04-16-2020 influenza, high-dose , quadrivalent vaccine (FLUZONE HIGH DOSE QUADRIVALENT) Abdulaziz Caldera MD Work Phone: [facility] 03-14-2020 zoster vaccine recombinant Abdulaziz Caldera MD Work Phone: [facility] Work Phone: 04-02-2019 influenza, high dose seasonal, preservative-free Abdulaziz Caldera MD Work Phone: [facility] Work Phone: 04-15-2018 influenza, high dose seasonal, preservative-free Abdulaziz Caldera MD Work Phone: [facility] 06-13-2017 influenza, high dose seasonal, preservative-free Abdulaziz Caldera MD Work Phone: [facility] 06-20-2016 influenza, high dose seasonal, preservative-free Abdulaziz Caldera MD Work Phone: [facility] 11-24-2015 pneumococcal polysaccharide vaccine, 23 valent Abdulaziz Caldera MD Work Phone: [facility] 05-16-2015 influenza, high dose seasonal, preservative-free Abdulaziz Caldera MD Work Phone: [facility] 10-27-2014 pneumococcal conjuga te vaccine, 13 valent Abdulaziz Caldera MD Work Phone: [facility] 10-27-2014 zoster vaccine, live Socrates Caldera MD Work Phone: [facility] 06-11-2011 influenza virus vaccine, unspecified formulation Abdulaziz Caldera MD Work Phone: [facility] 12-25-2010 tetanus toxoid, redu veronika diphtheria toxoid, and acellular pertussis vaccine, adsorbed Abdulaziz Caldera MD Work Phone: [facility] 04-25-2009 pneumococcal polysaccharide vaccine, 23 valent Abdulaziz Caldera MD Work Phone: [facility] 03-21-2000 diphtheria and tetan us toxoids, adsorbed for pediatric use Abdulaziz Caldera MD Work Phone: [facility] Work Phone: 02-11-1961 poliovirus vaccine, inactivated Abdulaziz Caldera MD Work Phone: [facility] Work Phone: 03-25-1959 poliovirus vaccine, inactivated Abdulaziz Caldera MD Work Phone: [facility] Work Phone: 10-16-1956 poliovirus vaccine, inactivated Abdulaziz Caldera MD Work Phone: [facility] Work Phone: 01-12-1956 poliovirus vaccine, inactivated Abdulaziz Caldera MD Work Phone: [facility] Work Phone: 12-03-1955 poliovirus vaccine, inactivated Abdulaziz Caldera MD Work Phone: [facility] Work Phone: Payers Date Payer Category Payer Unknown HOSPITAL/MEDICAL GENERIC MEDICAL GENERIC [id number] 2012-Present [phone] [address] [place] [address] Indemnity [id number] 2012 Unknown HOSPITAL/MEDICAL GENERIC MEDICAL GENERIC [id number] 2012-Present [phone] [address] [place] [address] Indemnity [id number] 2012 Unknown [id number] 2012 Medicare MEDICARE MEDICAR E A AND B [id number] 2012-Present [phone] [place] [address] Medicare [id number] 2012 Medicare MEDICARE MEDICAR E A AND B [id number] 2012-Present [phone] [place] [address] Medicare [id number] 2012 Medicare [id number] 1945 Unknown [id number] Social History Date Type Detail Facility Start: 11-23-2020 End: 04-06-2022 Tobacco smoking status NHIS Never smoked tobacco [facility] Start: 09-06-2021 End: 12-03-2022 Alcohol intake Current non-drinker of alcohol (finding) [facility] Start: 1945 Sex Assigned At Not on file [facility] Start: 08-07-2021 End: 04-17-2022 Exposure to SARS-CoV-2 (event) Not sure [facility] Tobacco smoking status No Smokin g Status Entered [facility] Sex Assigned At Male [facility] Start: 01-02-2022 End: 01-12-2022 Exposure to SARS-CoV-2 (event) Unable to assess [facility] Work Phone: Start: 11-23-2020 End: 04-06-2022 Tobacco use and exposure Smokeless tobacco non-user [facility] Work Phone: Start: 11-19-2022 End: 12-03-2022 History of Social function [facility] Work Phone: Start: 11-19-2022 End: 12-03-2022 Tobacco use panel [facility] Work Phone: Adult Depression Screening Assessment 2 [facility] Work Phone: Medical Equipment Procedure [...] Note Patient Outreach (EVELYN ROGERS) RICHARD ROY ([id number]) 1945 M Date Time Provider Department 05/28/23 GUDELIA HUITRON During your visit today, we recorded the following information about you: Gudelia Huitron MA 05/28/2023 12:44 PM Signed POPULATION HEALTH NAVIGATION OUTREACH Action/FYI NO ANSWER VISUALPLANTHART MESSAGE SENT ANNUAL MEDICARE WELLNESS Advance Directive Discussion Never done HbA1C due on 02/10/2023 Influenza Vaccine(1) due on 03/15/2023 Patient Identified by Name and : NO Outreach Outcome/Action Unable to reach patient: Phone number not valid / voicemail full eBreviat message sent Did you use a PCP [...] time a week. - blood sugar diagnostic (Bib + Tuck ULTRA TEST) test strip Test blood sugar(s) [...] due to im (more content not included)... [facility] 05-28-2023 Note HNO ID: [id number] Author: Gudelia Huitron MA Service: ? Author Type: Acid Strength Inspector Type: Progress Notes Filed: 05/28/2023 12:44 PM Note Text: POPULATION HEALTH NAVIGATION OUTREACH Action/I NO ANSWER VISUALPLANTHART MESSAGE SENT ANNUAL MEDICARE WELLNESS Advance Directive Discussion Never done HbA1C due on 02/10/2023 Influenza Vaccine(1) due on 03/15/2023 Patient Identified by Name and : NO Outreach Outcome/Action Unable to reach patient: Phone number not valid / voicemail full [employer] message sent Did you use a PCP [...] Huitron MA May 28, 2023 7:41 AM [facility] 02-12-2023 Note Patient Outreach (IN TMMN) RICHARD ROY ([id number]) 1945 M Date Time Provider Department 02/12/23 ABDULAZIZ CALDERA During your visit today, we recorded the following information about you: Allergies As of Date: 02/12/2023 Noted Allergy Reaction PANTOPRAZOLE 09/24/2019 6 - Diarrhea Date Reviewed: 01/04/2023 Reviewed by: Tamika Grijalva LPN - Fully Assessed Visit Diagnosis:Diabetic retinopathy of right eye (HCC) [E11.319] Order(s):HGB A1C [[id number]] Order #: [id number] FUTURE Prescriptions as of 02/15/2023 - metFORMIN [...] Encounter Status:Closed by SOLA RANDLE on 02/15/23 [facility] 01-28-2023 Miscellaneous Notes Miya with [facility] calls to report pt was admitted to their facility over the weekend. Miya is requesting immunization record be faxed to: [phone]. Immunization record faxed as requested. Tania Heller LPN documented in this encounter [facility] 01-24-2023 Miscellaneous Notes Phoned patient's [...] Patient's calling to say patient was at [facility] for rehabilitation after his hospitalization @ [facility] for confusion on 01/04. He was sent by squad to [facility] from [facility] [...] Vannessa Jorge, JACEY documented in this encounter [facility] 01-04-2023 Note HNO ID: [id number] Author: Abdulaziz Caldera MD Service: ? 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 ([facility]) 05/25/2018 History of transfusion Hyperlipidemia LDL goal < 100 04/01/2012 NSTEMI (non-ST elevated myocardial infarction) ([facility]) Pulmonary embolus, right ([facility]) 09/25/2013 Status post aortic valve repair 2005 Thoracic aneurysm without mention of rupture Type 2 diabetes mellitus with stage 3 chronic kidney disease, with long-term current use of insulin ([facility]) 06/20/2016 Vitamin D deficiency 01/03/2022 Previous Surgical History PAST SURGICAL HISTORY Procedure Laterality Date ABDOMINAL SURGERY HX AMPUTATION METATARSAL+TOE,SINGLE Right 05/25/2018 with delayed closure on 05/28/18. Dr. Obregon at [facility] COLONOSCOPY 10/10/2021 repeat in 3 years COLONOSCOPY [...] Yes Current Facility-Administ (more content not included)... [facility] 01-04-2023 Miscellaneous Notes Pt was seen [...] recommend ER evaluation. documented in this encounter [facility] 01-04-2023 Miscellaneous Notes No return [...] Vannessa Jorge RN documented in this encounter [facility] 01-03-2023 Note HNO ID: [id number] Author: Justina Escoto PT Service: ? Author [...] included: Therapeutic exercise, Neuromuscular re-education, Therapeutic activities, Self-fci management, and Gait training. Goals for Episode [...] PARTIALLY MET, improved 8 to 9 reps [place] in home exercise program including cardiovascular exercise. [...] in proper exercise (more content not included)... [facility] 01-03-2023 History of Presen t illness [...] included: Therapeutic exercise, Neuromuscular re-education, Therapeutic activities, Self-fci management, and Gait training. Goals for Episode [...] PARTIALLY MET, improved 8 to 9 reps [place] in home exercise program including cardiovascular exercise. [...] with an (*). Patient education as noted. Self-Alf Management: 1: *strongly enouraged f/u with physician [...] encounter [facility] 12-31-2022 Note HNO ID: [id number] Author: Justina Escoto PT Service: ? Author [...] Treatment Time Minutes (timed/untimed): 42 Ira Ramos, [employer] Justina Escoto, PT [facility] 12-31-2022 History of Presen t illness [...] ALISIA Burch PT documented in this encounter [facility] 12-27-2022 Note HNO ID: [id number] Author: Justina Ecsoto PT Service: ? Author Type: Physical Therapist [...] Treatment Time Minutes (timed/untimed): 40 Ira Ramos, [employer] SAL[employer] Justina Escoto, PT [facility] 12-27-2022 History of Presen t illness [...] ALISIA Burch PT documented in this encounter [facility] 12-24-2022 Note HNO ID: [id number] Author: Justina Escoto PT Service: ? Author [...] was facilitated with verbal and visual cueing. Self-Alf Management: 1: *strongly encouraged pt. to be [...] Time Minutes (timed/untimed): 40 Justina Escoto, PT [facility] 12-24-2022 History of Presen t illness [...] was facilitated with verbal and visual cueing. Self-Alf Management: 1: *strongly encouraged pt. to be [...] encounter [facility] 12-17-2022 Note HNO ID: [id number] Author: Justina Escoto PT Service: ? Author [...] of gait belt. Patient education as noted. Self-Alf Management: 1: *discussed automatic lights 2: *discussed [...] Time Minutes (timed/untimed): 40 Justina Escoto, PT [facility] 12-17-2022 History of Presen t illness [...] of gait belt. Patient education as noted. Self-Alf Management: 1: *discussed automatic lights 2: *discussed [...] encounter [facility] 12-14-2022 Note HNO ID: [id number] Author: Justina Escoto PT Service: ? Author [...] Time Minutes (timed/untimed): 40 Justina Escoto, PT [facility] 12-14-2022 History of Presen t illness [...] [facility] 12-12-2022 Note HNO ID: [id number] Author: Justina Escoto PT Service: ? Author [...] Time Minutes (timed/untimed): 40 Justina Escoto, PT [facility] 12-12-2022 History of Presen t illness [...] [facility] 12-06-2022 Note HNO ID: [id number] Author: Justina Escoto, PT Service: ? Author [...] Time Minutes (timed/untimed): 40 Justina Escoto, PT [facility] 12-03-2022 Note HNO ID: [id number] Author: Bobbi Garcia MD Service: ? Author Type: Physician Type: Progress Notes Filed: 12/03/2022 12:13 PM Note Text: [facility] Cardiology ([facility]) [address] [id number] OUTPATIENT VISIT DATE 12/03/2022 PRIMARY CARE PHYSICIAN: Abdulaziz Caldera [address] [place] [address] HISTORY OF PRESENT ILLNESS: Mr. 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 ([facility]) 05/25/2018 History of transfusion Hyperlipidemia LDL goal < 100 04/01/2012 NSTEMI (non-ST elevated myocardial infarction) ([facility]) Pulmonary embolus, right ([facility]) 09/25/2013 Status post aortic valve repair 2005 Thoracic aneurysm without mention of rupture Type 2 diabetes mellitus with stage 3 chronic kidney disease, with long-term current use of insulin ([facility]) 06/20/2016 Vitamin D deficiency 01/03/2022 PAST SURGICAL HISTORY Procedure Laterality Date ABDOMINAL SURGERY HX AMPUTATION METATARSAL+TOE,SINGLE Right 05/25/2018 with delayed closure on 05/28/18. Dr. Obregon at [facility] COLONOSCOPY 10/10/2021 repeat in 3 years COLONOSCOPY [...] 5 EachRfl: 5 warfarin (COUMADIN) 5 mg seelmr11 mg Saturday and Saturday, 7.5 mg all [...] Units subcutaneously daily (more content not included)... [facility] 12-03-2022 Note HNO ID: [id number] Author: Justina Escoto, PT Service: ? Author [...] facilitated with verbal, visual, and tactile cueing. Self-Alf Management: 1: *at length discussed importance of letting physician know about pt. concerns with his loss of interest in things prior to COVID-19 pandemic 2: *discussed that motivation will come from the pt. not from the or the therapist -- and this will directly influence pt. fpc progress. 3: *discussed with and pt. that pt. stating I'm lazy. is not his personality and pt. states that he does not want to be this way, but he wants to be comfortable. (more content not included)... [facility] 11-29-2022 Note HNO ID: [id number] Author: Justina Escoto, PT Service: ? Author [...] 11 repetitions to reflect decreased fall risk. [place] in home exercise program including cardiovascular exercise. [...] Planned: 12 Planned Treatment Interventions: Therapeutic exercise (02351), Neuromuscular re-education (17115), Manual therapy (27550), Therapeutic activities (25373), Self-fci management (37582), Gait Training (29083), Patient/Family/Caregiver Education PLAN FOR NEXT VISIT: Assess [...] <20 [facility] (more content not included)... [facility] 11-20-2022 Miscellaneous Notes [facility] 11/19/22 Appointment [...] to the pharmacy. Please call patient at: [phone]. Nola Castro Pss documented [facility] 11-19-2022 Note HNO ID: [id number] Author: Abdulaziz Caldera MD Service: ? 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 ([facility]) 05/25/2018 History of transfusion Hyperlipidemia LDL goal < 100 04/01/2012 NSTEMI (non-ST elevated myocardial infarction) ([facility]) Pulmonary embolus, right ([facility]) 09/25/2013 Status post aortic valve repair 2004 Thoracic aneurysm without mention of rupture Type 2 diabetes mellitus with stage 3 chronic kidney disease, with long-term current use of insulin ([facility]) 06/20/2016 Vitamin D deficiency 01/03/2022 Previous Surgical History PAST SURGICAL HISTORY Procedure Laterality Date ABDOMINAL SURGERY HX AMPUTATION METATARSAL+TOE,SINGLE Right 05/25/2018 with delayed closure on 05/28/18. Dr. Obregon at [facility] COLONOSCOPY 10/10/2021 repeat in 3 years COLONOSCOPY [...] chloride 0.9 % (more content not included)... [facility] 10-22-2022 Note HNO ID: [id number] Author: Arminda Obregon Service: ? Author Type: [...] RTC in 3-4 months. Arminda Obregon DPM [facility] 10-22-2022 Note HNO ID: [id number] Author: Blaire Sandoval RN Service: ? Author Type: ? Type: Progress Notes Filed: 10/22/2022 3:47 PM Note Text: Patient presents with: Left Foot - Established Patient, Diabetic Foot Care Right Foot - Established Patient, Diabetic Foot Care [facility] 10-22-2022 History of Presen t illness [...] (or decreased sensation in your feet) a lease out man should always cut your toenails. Be Careful [...] Go to your health care provider or lease out man to treat these conditions. documented in this [...] [facility] 09[facility]07-2022 Note HNO ID: [id number] Author: Tamie Kaur MD Service: ? Author [...] evaluation of folllow up after hospitalization in [facility]. 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 ([facility]) 05/25/2018 History of transfusion Hyperlipidemia LDL goal < 100 04/01/2012 NSTEMI (non-ST elevated myocardial infarction) ([facility]) Pulmonary embolus, right ([facility]) 09/25/2013 Status post aortic valve repair 2004 Thoracic aneurysm without mention of rupture Type 2 diabetes mellitus with stage 3 chronic kidney disease, with long-term current use of insulin ([facility]) 06/20/2016 Vitamin D deficiency 01/03/2022 PSH: PAST SURGICAL HISTORY Procedure Laterality Date ABDOMINAL SURGERY HX AMPUTATION METATARSAL+TOE,SINGLE Right 05/25/2018 (more content not included)... [facility] 09-07-2022 Miscellaneous Notes Call to patient. Provided number to schedule- [phone]. Offered to transfer patient to schedule but [...] evaluation of folllow up after hospitalization in [facility]. 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 ([facility]) 05/25/2018 History of transfusion Hyperlipidemia LDL goal < 100 04/01/2012 NSTEMI (non-ST elevated myocardial infarction) ([facility]) Pulmonary embolus, right ([facility]) 09/25/2013 Status post aortic valve repair 2005 Thoracic aneurysm without mention of rupture Type 2 diabetes mellitus with stage 3 chronic kidney disease, with long-term current use of insulin ([facility]) 06/20/2016 Vitamin D deficiency 01/03/2022 PSH: PAST SURGICAL HISTORY Procedure Laterality Date ABDOMINAL SURGERY HX AMPUTATION METATARSAL+TOE,SINGLE Right 05/25/2018 with delayed closure on 05/28/18. Dr. Obregon at [facility] COLONOSCOPY 10/10/2021 repeat in 3 years COLONOSCOPY [...] one time a week. blood sugar diagnostic ([employer] ULTRA TEST) test strip Test blood sugar(s) [...] [facility] [place] Department of Neurology Total time in minutes [...] debra Heller LPN documented in this encounter [facility] [...] [facility] 08-09-2022 Note HNO ID: [id number] Author: Abdulaziz Caldera MD Service: ? Author [...] 12 months ago. Going to schedule appointment [facility]. 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 Asymtpomatic still on medical management. Has completed his home PT/OT. Echo and stress test at [facility] were negative/normal. Has follow up with Dr. Garcia on 12/03. questioning if they should be seen sooner. BP well controlled with current regimen <130/80. BPH: With use of flomax, patient is getting up once at night to urinate. Has weak stream, but denies straining, incomplete emptying, dysuria, hematuria, incontinence. Followed up with ENT in [place] for chronic frontal sinusitis on CT/MRI going [...] closure on 05/28/18. Dr. Obregon at [facility] COLONOSCOPY 10/10/2021 repeat in 3 years COLONOSCOPY [...] daily. For cholesterol. (more content not included)... [facility] 08-09-2022 History of Presen t illness [...] 12 months ago. Going to schedule appointment [facility]. 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 Asymtpomatic still on medical management. Has completed his home PT/OT. Echo and stress test at [facility] were negative/normal. Has follow up with Dr. Garcia on 12/03. questioning if they should be seen sooner. BP well controlled with current regimen <130/80. BPH: With use of flomax, patient is getting up once at night to urinate. Has weak stream, but denies straining, incomplete emptying, dysuria, hematuria, incontinence. Followed up with ENT in [place] for chronic frontal sinusitis on CT/MRI going [...] 100 04/01/2012 Pulmonary embolus, right ([facility]) 09/25/2013 Status post aortic valve repair 2005 Thoracic aneurysm without mention of rupture Type 2 diabetes mellitus with stage 3 chronic kidney disease, with long-term current use of insulin ([facility]) 06/20/2016 Vitamin D deficiency 01/03/2022 Previous Surgical History PAST SURGICAL HISTORY Procedure Laterality Date ABDOMINAL SURGERY HX AMPUTATION METATARSAL+TOE,SINGLE Right 05/25/2018 with delayed closure on 05/28/18. Dr. Obregon at [facility] COLONOSCOPY 10/10/2021 repeat in 3 years COLONOSCOPY [...] by mouth once daily. blood sugar diagnostic ([employer]CH ULTRA TEST) test strip Test blood sugar(s) [...] Abs Lymph 1.00 - 4.00 k/uL 1.81 Kern% % 6.9 Abs Kern <0.87 k/uL 0.86 Eosin% % 3.1 Abs [...] long-term current use of insulin ([facility]) - ICD9: 250.60, 357.2, V58.67, ICD10: E11.40, Z79.4 (primary diagnosis) improved control - Continue current medications - Blood glucose monitoring on a four times a day schedule - Encouraged regular aerobic exercise and weight loss - Follow up in 6 months, sooner should any other issues arise. - Discussed diabetic education issues of fpc diabetic complications, hypoglycemic symptoms, hyperglycemic symptoms, diet, [...] with type 2 diabetes mellitus ([facility]) - ICD9: 250.60, 357.2, ICD10: E11.42 Controlled on current regimen. 3. NSTEMI (non-ST elevated myocardial infarction) ([facility]) - ICD9: 410.70, ICD10: I21.4 Patient [...] [facility] 08-06-2022 Note HNO ID: [id number] Author: Arminda Jaimes MD Service: ? Author [...] physician via mail or electronic medical record. [facility] 08-06-2022 History of Presen t illness [...] [facility] 07-27-2022 Miscellaneous Notes [employer] message not read as of 07/27/2022. Called and spoke with patient. Appt rescheduled to 09/07/2022 at 11:00 AM Meghana Burgess Due to change in provider's schedule, appt on 08/21/2022 needs rescheduled. Patient notified via [employer] message on 07/05/2022. Meghana Burgess documented in this encounter [facility] 07-26-2022 Miscellaneous Notes Thanks. Darlyn, a nurse with [facility] calling to state she has discharged pt from residential today. Pt is doing really well. No call back needed. Thank you. documented in this encounter [facility] 01-11-2023 Miscellaneous Notes Last Office Visit: 07/12/2022 Future Office Visit: 08/09/2022 Requested Prescriptions Pending Prescriptions Disp Refills amLODIPine (NORVASC) 2.5 mg tablet 30 tablet 5 Sig: Take 1 tablet by mouth once daily. Date of Last Labs: 03/02/2022 documented in this encounter [facility] 07-17-2022 Miscellaneous Notes Reviewed and agree. Maverick PT calling from [facility] to report plan of care for patient and PT will visit patient 2 times a week for 3 weeks. PT will work with patient on functional mobility training. Halima Diaz RN documented in this encounter [facility] 07-17-2022 Miscellaneous Notes Reviewed. Barbi from [facility] calling with OT plan of care, one time visit only, patient denies any further OT needs. No call back needed. documented in this encounter [facility] 07-13-2022 Miscellaneous Notes Left detailed message on confidential line Ewa Andino Ma agree Chiki, a nurse with [facility] calling with [facility] Plan of Care for patient: Patient will be seen 1 time per week for 4 weeks for BP monitoring. No call back needed if provider agreeable. Thank you. documented in this encounter [facility] 07-12-2022 Note HNO ID: [id number] Author: Abdulaziz Caldera MD Service: ? Author Type: Physician Type: Progress Notes Filed: 07/17/2022 8:33 AM Note Text: Chief Complaint Patient presents with: Hospital F/U: Admitted 07/09/22 discharged 07/11/22 HPI Richard Roy is a 76 year old male who presents here today for Hospital Discharge Follow up.. Patient was admitted to [facility] from 07/09 to 07/11 after presenting to [...] to follow up with our office and paper stacker. 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 ([facility]) 05/25/2018 History of transfusion Hyperlipidemia LDL goal < 100 04/01/2012 Pulmonary embolus, right ([facility]) 09/25/2013 Status post aortic valve repair 2004 Thoracic aneurysm without mention of rupture Type 2 diabetes mellitus with stage 3 chronic kidney disease, with long-term current use of insulin ([facility]) 06/20/2016 Vitamin D deficiency 01/03/2022 Previous Surgical History PAST SURGICAL HISTORY Procedure Laterality Date ABDOMINAL SURGERY HX AMPUTATION METATARSAL+TOE,SINGLE Right 05/25/2018 with delayed closure on 05/28/18. Dr. Obregon at [facility] COLONOSCOPY 10/10/2021 repeat in 3 years COLONOSCOPY [...] 0.4 mg Take (more content not included)... [facility] 07-12-2022 Miscellaneous Notes Karly was notified Ewa Andino Ma Agree and will follow Karly with [facility] called and reports Pt was discharged [...] [facility] 07-03-2022 Note HNO ID: [id number] Author: Arminda Obregon Service: ? Author Type: [...] RTC in 3-4 months. Arminda Obregon DPM [facility] 07-03-2022 Note HNO ID: [id number] Author: Marcella Cox RN Service: ? Author Type: Registered Nurse Type: Progress Notes Filed: 07/03/2022 11:17 AM Note Text: Patient presents with: Left Foot - Established Patient, Follow Up, nail care Right Foot - Established Patient, Follow Up, nail care [facility] 07-02-2022 Note HNO ID: [id number] Author: Bobbi Garcia MD Service: ? Author Type: Physician Type: Progress Notes Filed: 07/02/2022 12:42 PM Note Text: [facility]AL CARDIOLOGY Cardiology ([facility]) [address] [id number] OUTPATIENT VISIT DATE 07/02/2022 PRIMARY CARE PHYSICIAN: Abdulaziz Caldera [address] [place] [address] HISTORY OF PRESENT ILLNESS: Mr. Roy is [...] HISTORY: From Last OV with Justina Hadley [facility] 01/01/2022: Richard Roy is a 76 year old male who presents for routine follow up. 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 His accompanies him for his office visit today. They both explain to me he was hospitalized at [facility] for 2 days last week for [...] LE swelling. Records have been requested from [facility]. He is unsure of what testing was completed. An echocardiogram was ordered at his last office visit with me. If this was not completed at [facility], I recommend this be completed for further cardiac evaluation. PAST MEDICAL HISTORY Diagnosis Date BPH (benign prostatic hyperplasia) Cholelithiasis 09/25/2013 Chronic neutrophilia Benign-Dr. 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 ([facility]) 05/25/2018 History of transfusion Hyperlipidemia LDL goal < 100 04/01/2012 Pulmonary embolus, right ([facility]) 09/25/2013 Status post aortic valve repair 2005 Thoracic aneurysm without mention of rupture Type 2 diabetes mellitus with stage 3 chronic kidney disease, with long-term current use of insulin ([facility]) 06/20/2016 Vitamin D deficiency 01/03/2022 PAST SURGICAL HISTORY Procedure Laterality Date ABDOMINAL SURGERY HX AMPUTATION METATARSAL+TOE,SINGLE Right 05/25/2018 with delayed closure on 05/28/18. Dr. Obregon at [facility] COLONOSCOPY 10/10/2021 repeat in 3 years COLONOSCOPY [...] at bedtime.Disp: 3 (more content not included)... [facility] 06-25-2022 Miscellaneous Notes Last appt: 04/16/22 [...] evaluation of folllow up after hospitalization in [facility]. he was admitted because of syncopal episode [...] others Since covid hit they went to [facility] and was staying in the [...] closure on 05/28/18. Dr. Obregon at [facility] COLONOSCOPY 10/10/2021 repeat in 3 years COLONOSCOPY [...] week. Discard Pen After blood sugar diagnostic (Bib + Tuck ULTRA TEST) test strip Test blood sugar(s) [...] [facility] [place] Department of Neurology Total time in minutes [...] Social Work Progress Note Patient identified for [facility] from: PCP Reason for referral: Resources Behavioral Health Resources: Psychology - talk therapy [facility] encounter type: Telephone Encounter Attempts to Outreach: 1 attempt Referral made: Psychology - External Psychology-External referral type: Therapy Reason for external referral: Wait times at [facility] too long Final Disposition: Resources given Patient Discharged?: Yes Patient reported that caregiver was able to meet their needs today?: Yes SW placed a phone call to patient at the request of the PCP. Pt reported he is looking for talk therapy referrals at this time. SW provided the following referrals via phone: [facility] [address], [facility], [facility] [address] *counseling [facility] [address] [address] *counseling [facility] [address], [address] [place] [address] *counseling [facility] [address] [place] [address] FEDERICO Zamudio April 17, 2022 documented in [...] Diabetic retinopathy of right eye ([facility]) mild Diverticulosis of colon (without mention [...] 05/25/2018 with delayed closure on 05/28/18. Dr. Obrgeon at [facility] COLONOSCOPY 10/10/2021 repeat in 3 years COLONOSCOPY [...] week. Discard Pen After blood sugar diagnostic (HaparaTOUCH ULTRA TEST) test strip Test blood sugar(s) [...] Abs Lymph 1.00 - 4.00 k/uL 1.81 Kern% % 6.9 Abs Kern <0.87 k/uL 0.86 Eosin% % 3.1 Abs [...] long-term current use of insulin ([facility]) - ICD9: 250.40, 585.3, V58.67, ICD10: E11.22, N18.31, Z79.4 (primary diagnosis) Controlled. - Continue current medications - Blood glucose monitoring on a 3 times a day schedule - Encouraged regular aerobic exercise and weight loss - Follow up in 6 months, sooner should any other issues arise. 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 FOR CHOLESTEROL. blood sugar diagnostic (Bib + Tuck ULTRA TEST) test strip Test blood sugar(s) [...] SEASONAL QUADRIVALENT HIGH DOSE AGE 65+ - [facility] COVID-19 BIVALENT BOOSTER VACCINE, AGE 12+ YR [...] which included preparing to see the patient, [id number] patient care, completing clinical documentation, obtaining and/or [...] AM EDT ----- Message from Roselia Madrigal APRN.BEEKEEPER FARMER sent at 04/03/2022 2:47 PM EDT ----- Please forward INR to doctor carton filler Roselia Madrigal APRN.BEEKEEPER FARMER documented in this encounterThe University Of Toledo [...] (or decreased sensation in your feet) a lease out man should always cut your toenails. Be Careful [...] Go to your health care provider or lease out man to treat these conditions. documented in this [...] 01/12/22 through 03/15/22 Goals updated on 03/23/2022. [place] in home exercise program. (Met) Patient will [...] 03/22/2022 1:49 PM EDT Pharmacy verified in [facility] Patient has been identified by name [...] That Will Oversee The Plan Of Care: Rsoa Elena Poon Start of Care Date: 01/12/22 [...] Treatment Time Minutes (timed/untimed): 40 Karen Weber, AUTOMOTIVE PARTS SALESPERSON Rosa Elena Poon PT documented in this [...] 41 ALISIA Whiting PT documented in this encounterThe [...] 01/12/22 through 03/15/22 Goals updated on 03/09/2022. [place] in home exercise program. (Met) Patient will [...] Patient to be seen for Therapeutic exercise (47435);Neuromuscular re-education (12738);Gait Training (72001);Patient/Family/Caregiver Education PLAN FOR NEXT VISIT: Add bridging [...] Rosa Elena Lemon, PT documented in this encounterThe University Of [...] ER Follow Up.. Patient evaluated at 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 ([facility]) 05/25/2018 History of transfusion Hyperlipidemia LDL goal < 100 04/01/2012 Pulmonary embolus, right ([facility]) 09/25/2013 Status post aortic valve repair 2004 Thoracic aneurysm without mention of rupture Type 2 diabetes mellitus with stage 3 chronic kidney disease, with long-term current use of insulin([facility]) 06/20/2016 Vitamin D deficiency 01/03/2022 Previous Surgical History PAST SURGICAL HISTORY Procedure Laterality Date ABDOMINAL SURGERY HX AMPUTATION METATARSAL+TOE,SINGLE Right 05/25/2018 with delayed closure on 05/28/18. Dr. Obregon at [facility] COLONOSCOPY 10/10/2021 repeat in 3 years COLONOSCOPY [...] ONCE DAILY. FOR CHOLESTEROL. blood sugar diagnostic (Bib + Tuck ULTRA TEST) test strip Test blood sugar(s) [...] Abs Lymph 1.00 - 4.00 k/uL 1.81 Kern% % 6.9 Abs Kern <0.87 k/uL 0.86 Eosin% % 3.1 Abs [...] 01/12/22 through 03/15/22 Goals updated on 02/09/2022. [place] in home exercise program. (Met) Patient will [...] Patient to be seen for Therapeutic exercise (65156);Neuromuscular re-education (71275);Gait Training (39025);Patient/Family/Caregiver Education PLAN FOR NEXT VISIT: Continue to [...] No need to notify patient. Eulalia [facility] documented in this encounterThe University Of Toledo [...] 45 ALISIA Whiting PT documented in this encounterThe [...] of Care: created on 01/12/22 through 03/15/22 [place] in home exercise program. Patient will demonstrate [...] Planned: 16 Planned Treatment Interventions: Therapeutic exercise (17755);Neuromuscular re- education (11780);Gait Training (93737);Patient/Family/Caregiver Education PLAN FOR NEXT VISIT: Review HEP [...] 4:40 PM EDT ----- Message from Justina Hadlye APRN.CNP sent at 01/10/2022 11:33 AM EDT [...] PHYSICIAN: Abdulaziz Caldera [address] [facility] [address] Accompanied by: Spouse ASSESSMENT: 76 year old [...] evaluation of folllow up after hospitalization in [facility]. he was admitted because of syncopal episode [...] others Since covid hit they went to [facility] and was staying in the [...] closure on 05/28/18. Dr. Obregon at [facility] COLONOSCOPY 10/10/2021 repeat in 3 years COLONOSCOPY [...] by mouth once daily. blood sugar diagnostic (inVentiv HealthUCH ULTRA TEST) test strip Test blood sugar(s) [...] [facility] [place] Department of Neurology January 05, 2022 Total [...] AM EDT ----- Message from Justina Hadley APRN.BEEKEEPER FARMER sent at 01/02/2022 7:38 AM EDT ----- Please call patient and notify him cholesterol has good control. Thank you! documented in this encounterThe University Of [facility]06-20-[facility]22 History of Present illness Narrative* Abdulaziz Caldera MD - 01/01/2022 10:20 AM EDT Chief Complaint Patient presents with: Hospital Follow Up: [facility] discharged 12/29/21 HPI Richard Roy is a 76 year old male who presents here today for Hospital Discharge Follow up. Accompanied today by his . Patient admitted to [facility] from 12/27 to 12/29 after presenting to the [facility] ED after being found slumped over his tractor at home earlier in the afteernoon. Had been working outside for unknown period of time. Had only eaten cookies and milk that day. Heat index over 100. Back to baseline at the time of evaluation by hospitalist at [facility]. Found to have leukocytosis at [place] and elevated lactic acid level. Noted [...] since it was not completed at [facility]. No other changes to regimen. Patient incontinent [...] with long-term current use of insulin([facility]) 06/20/2016 Previous Surgical History PAST SURGICAL HISTORY Procedure Laterality Date ABDOMINAL SURGERY HX AMPUTATION METATARSAL+TOE,SINGLE Right 05/25/2018 with delayed closure on 05/28/18. Dr. Obregon at [facility] COLONOSCOPY 10/10/2021 repeat in 3 years COLONOSCOPY [...] by mouth once daily. blood sugar diagnostic (Bib + Tuck ULTRA TEST) test strip Test blood sugar(s) [...] [facility] Instructions* Patient Instructions* Justina Hadley APRN.BEEKEEPER FARMER - 01/01/2022 9:05 AM EDT High Blood [...] risk for high blood pressure. Developed by [employer]. Published by [employer]. Copyright 2014 [employer] and/or one of its subsidiaries. All rights reserved. documented in this encounterThe [facility] Of [facility]06-20-2022 History of Present illness Narrative* Justina Hadley APRN.CNP - 01/01/2022 8:57 AM EDT Chief Complaint Patient presents with: Follow Up: 6 mo History of Present Illness: Ricahrd Roy is a 76 year old male who presents for routine follow up. 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 His accompanies him for his office visit today. They bothexplain to me he was hospitalized at [facility] for 2 days last week for [...] LE swelling. Records have been requested from [facility]. He is unsure of what testing was completed. An echocardiogram was ordered at his last office visit with me.If this was not completed at [facility], I recommend this be completed for further cardiac evaluation. PAST MEDICAL HISTORY Diagnosis Date Cholelithiasis 09/25/2013 Chronic neutrophilia Benign-Dr. 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 Dr. Obregon at [facility] COLONOSCOPY 10/10/2021 repeat in 3 years COLONOSCOPY [...] injection (DEFINITY) INTRAVENOUS DIRECTED PRN Justina Hadley, ELECTRICAL DESIGNER DRAFTER.BEEKEEPER FARMER sodium chloride 0.9 % (flush) 10 mL (BD POSIFLUSH) 10 mL INTRAVENOUS DIRECTED PRN Justina Hadley, ELECTRICAL DESIGNER DRAFTER.BEEKEEPER FARMER Review of Systems Constitutional: Negative for chills, [...] MRI of his head CAD -MILD on [facility] 2004 -stress testing 2013 with no [...] only. Refer to previous culture for susceptibility. [id number] PRELIMINARY REPORTS Preliminary Report [] Verified Date/Time/Personnel: 12/30/2021 09:39 EDT Staphylococcus epidermidis Isolated from anaerobe bottle only. Refer to previous culture for susceptibility. [id number] Preliminary Report [] Verified Date/Time/Personnel: 12/28/2021 15:59 EDT Culture has been received in lab and is no growth to date. Routine cultures are held for 5 days. STAINS GSANA [] Verified Date/Time/Personnel: 12/29/2021 14:08 EDT Gram Positive Cocci in clusters Performing Locations *1: This test was performed at: [facility], [address] [place] [address], [facility] , [facility] ([place])12-31-2021 Note. MICRO - Microbiology PROCEDURE: Blood Culture [...] Locations *1: This test was performed at: [facility], [address] [place] [address], [id number] , [facility] ([place])12-27-2021 SARS-CoV-2 (COVID-19) RNA ANGELY+probe Ql (Nph)Positive 2 [...] Patient positive for COVID in the [facility] ER last week on 12/06. 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 ([facility]) 05/25/2018 History of transfusion Hyperlipidemia LDL goal < 100 04/01/2012 Pulmonary embolus, right ([facility]) 09/25/2013 Status post aortic valve repair 2005 Thoracic aneurysm without mention of rupture Type 2 diabetes mellitus with stage 3 chronic kidney disease, with long-term current use of insulin([facility]) 06/20/2016 Previous Surgical History PAST SURGICAL HISTORY Procedure Laterality Date ABDOMINAL SURGERY HX AMPUTATION METATARSAL+TOE,SINGLE Right 05/25/2018 with delayed closure on 05/28/18. Dr. Obregon at [facility] COLONOSCOPY 10/10/2021 repeat in 3 years COLONOSCOPY [...] by mouth once daily. blood sugar diagnostic (HaparaTOUCH ULTRA TEST) test strip Test blood sugar(s) [...] for Above Complaints.. Patient evaluated at [facility] ER on 12/06 for complaint of generalized weakness, cough, and feeling off balance and developed cough which started on 12/04. Denied other COVID symptoms at that time. Lab workup in the ER was unremarkable aside from positive COVID test and INR of 3.3. UA unremarkable. CXR showed some ill defined densities in RLL which was likely 2/2 COVID infection. [place] to be well enough and discharged home [...] first toe of right foot ([facility]) 05/25/2018 History of transfusion Hyperlipidemia LDL goal < 100 04/01/2012 Pulmonary embolus, right ([facility]) 09/25/2013 Status post aortic valve repair 2005 Thoracic aneurysm without mention of rupture Type 2 diabetes mellitus with stage 3 chronic kidney disease, with long-term current use of insulin([facility]) 06/20/2016 Previous Surgical History PAST SURGICAL HISTORY Procedure Laterality Date ABDOMINAL SURGERY HX AMPUTATION METATARSAL+TOE,SINGLE Right 05/25/2018 with delayed closure on 05/28/18. Dr. Obregon at [facility] COLONOSCOPY 10/10/2021 repeat in 3 years COLONOSCOPY [...] by mouth once daily. blood sugar diagnostic (Bib + Tuck ULTRA TEST) test strip Test blood sugar(s) [...] these interactions. Not interested in driving to [facility] for IV ab. Since his symptoms are mild, he would prefer to rest at home. Discussed risks and benefits of treatment and that he is high risk for severe infection. Red flags for re-assessment reviewed with patient in detail. I spent a total of 25 minutes on the date of the service which included preparing to see the patient, [id number] patient care, completing clinical documentation, obtaining and/or [...] with one of our providers or with [facility] care online. * Telephone Encounter - Rosa Elena Martinez Pss - 12/08/2021 2:16 PM EDT Patient called stating he was at [facility] ER on 12/06. Tested positive for covid. Patient was informed tocontact the office within 5 days to inform. Please advise patient when he can be seen in office. documented in this encounterThe University Of Toledo [facility] Center05-09-2022 Miscellaneous Notes* Telephone Encounter - Eulalia Gaston [facility] - 11/20/2021 9:49 AM EDT Patient has been identified by name and date of : Yes Pending Prescriptions Disp Refills METFORMIN ER 500 MG 24 HR TABLET,EXTENDED RELEASE Sig: Take 1 tablet by mouth daily with breakfast. NUHA: No OMAR-09/06/21 Labs-08/30/21 NOV-03/07/22 RX INSTRUCTIONS: Patient aware RX will be sent to pharmacy. No need to notify patient. Eulalia [facility] documented in this encounterThe University Of [facility]edo [facility] Center04-11-2022 Instructions* Patient Instructions* Marcella Park PA-C - 10/23/2021 1:25 PM EDT -Recommend daily fiber supplement and plenty of fluids The following instructions are important for you related to your office visit today with the [facility] General Surgeons. INSTRUCTIONS FOR DIVERTICULA [...] you should contact our office immediately @ [phone] and ask to be transferred to the General Surgery department. The following instructions are important for you related to your office visit today with the [facility] General Surgeons. INSTRUCTIONS FOLLOWING A [...] you should contact our office immediately @ [phone] and ask to be transferred to the General Surgery department. documented in this encounterThe University Of [facility] Center04-11-2022 History of Present illness Narrative* Marcella Park PA-C - 10/23/2021 1:09 PM EDT FOLLOW UP VISIT - ENDOSCOPY NAME: Richard Bonilla [facility] NO.: [id number] DATE OF SERVICE: 10/23/2021 : 1945 REFERRING [...] which included preparing to see the patient, [id number] patient care, completing clinical documentation, obtaining and/or [...] Diabetes mellitus with neurological manifestation ([facility]) 09/08/2010 Diverticulosis of colon (without mention of hemorrhage) Encounter for monitoring Coumadin therapy 09/23/2013 INR goal 2.5-3.5 Essential hypertension, benign 10/28/2012 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 Dr. Obregon at [facility] COLONOSCOPY FLX DX W/COLLJ SPEC WHEN PFRMD [...] by mouth once daily. 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 Patient aware RX will be sent to pharmacy. No need to notify patient. Violette Lockhart documented in this encounterThe University Of Toledo [...] [facility]01[facility]-2022 NoteHNO ID: [id number] Author: REY Burt Service: Radiology Author Type: Fish Filleter Type: Progress Notes Filed: 07/27/2021 10:50 AM [...] Roy DATE: July 27, 2021 TIME: 10:49 [id number] History of Past illness Narrative* Problem Noted [...] of this encounter (statuses as of 08/07/2022) [address]13-[address] History of Past illness Narrative* Problem [...] of this encounter (statuses as of 08/09/2022) [address]13-[address] History of Past illness Narrative* Problem [...] of this encounter (statuses as of 01/29/2023) [facility] note* Diagnosis Type 2 diabetes mellitus with diabetic neuropathy, with long-term current use of insulin (HCC) Status post aortic valve repair Other postprocedural status Chronic anticoagulation Long-term (current) use of anticoagulants documented in this encounter [facility] Center[facility]* Diagnosis Colon cancer screening Special screening [...] Diagnosis COVID-19- Primary [facility] Diagnosis Hyperlipidemia with target LDL less than 100- Primary Other and unspecified hyperlipidemia Primary hypertension Unspecified essential hypertension Thoracic aortic aneurysm without rupture (HCC) Thoracic aneurysm without mention of rupture Coronary artery disease involving [place] coronary artery of [place] heart without angina pectoris Syncope, unspecified syncope type Obesity, Class II, BMI 35-39.9 Obesity, unspecified documented [facility] Diagnosis Syncope and collapse- Primary Altered mental status, unspecified altered mental status type Urinary incontinence, unspecified type Benign prostatic hyperplasia with nocturia Nocturia Vitamin D deficiency, unspecified Wound of left lower extremity, initial encounter Encounter for screening for malignant neoplasm of prostate Special screening for malignant neoplasm of prostate [facility] Diagnosis Abnormality of gait due to impairment of balance- Primary Altered mental status, unspecified altered mental status type [facility] Diagnosis Chronic anticoagulation Long-term (current) use of anticoagulants Thoracic aortic aneurysm without rupture (HCC) Thoracic aneurysm without mention of rupture Status post aortic valve repair Other postprocedural status [facility] Diagnosis Type 2 diabetes mellitus with diabetic neuropathy, with long-term current use of insulin (HCC)- Primary [facility] Diagnosis Abnormality of gait due [...] vitamin D deficiency [facility] Diagnosis Type 2 diabetes mellitus with stage 3 chronic kidney disease, with long-term current use of insulin (HCC) [facility] Diagnosis Abnormality of gait due to impairment of balance- Primary [facility] Diagnosis Type 2 diabetes mellitus with diabetic neuropathy, with long-term current use of insulin ([facility]) [facility] Diagnosis Abnormality of gait due [...] profile ANTHONY (acute kidney injury) ([facility]) Acute kidney failure, unspecified [facility] Diagnosis Abnormality of gait due [...] with type 2 diabetes mellitus ([facility]) [facility] Diagnosis Generalized weakness- Primary Other malaise and fatigue Encounter for immunization Need for other specified prophylactic vaccination against single bacterial disease Mild depression Depressive disorder, not elsewhere classified [facility] Diagnosis Generalized anxiety disorder- Primary [...] NSTEMI (non-ST elevated myocardial infarction) ([facility]) Acute myocardial infarction, subendocardial infarction, episode [...] long-term current use of insulin ([facility]) 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, macular edema presence unspecified ([facility]) [facility] Diagnosis Driving safety issue- Primary Other specified personal history presenting hazards to health [facility] Diagnosis Onychomycosis- Primary Dermatophytosis of nail Pain in toe of left foot Pain in limb Amputated toe of right foot ([facility]) Diabetic polyneuropathy associated with type 2 diabetes mellitus ([facility]) [facility] Diagnosis Spinal stenosis, lumbar region, without neurogenic claudication- Primary Primary osteoarthritis of both knees Primary localized osteoarthrosis, lower leg [facility] Diagnosis Spinal stenosis, lumbar region, without neurogenic claudication- Primary Primary osteoarthritis of both knees Primary localized osteoarthrosis, lower leg [facility] Diagnosis Spinal stenosis, lumbar region, without neurogenic claudication- Primary Primary osteoarthritis of both knees Primary localized osteoarthrosis, lower leg [facility] Diagnosis Spinal stenosis, lumbar region, without neurogenic claudication- Primary Primary osteoarthritis of both knees Primary localized osteoarthrosis, lower leg [facility] Diagnosis Spinal stenosis, lumbar region, without neurogenic claudication- Primary Primary osteoarthritis of both knees Primary localized osteoarthrosis, lower leg [facility] Diagnosis Spinal stenosis, lumbar region, without neurogenic claudication- Primary Primary osteoarthritis of both knees Primary localized osteoarthrosis, lower leg [facility] Narrative No data available for [...] WHEN PFMarcella Cho PA-C [address] [place] [address] [facility] [place] [address] [phone] Referral ID Status Reason Start Date Expiration Date V isits Requested Visits Authorized [id number] Closed Auto-Generate d Referral 08/16/2021 08/16/2022 1 1 [facility] for referral (narrative)* Outpatient Procedure (Routine) - Closed Specialty Diagnoses / Procedures Referred By Contac t Referred To Contact [facility] [place] Diagnoses Colon cancer screening Procedures COLONOSCOPY SCREENING COLONOSCOPY FLX DX W/COLLJ SPEC WHEN Marcella Alatorre PA-C [address] [place] [address] [facility] [place] [address] [place] [id number] Referral ID Status Reason Start Date Expiration Date V isits Requested Visits Authorized [id number] Closed Auto-Generate d Referral 08/16/2021 08/16/2022 1 1 [facility] for visit Narrative* Outpatient Procedure (Routine) - Closed Specialty Diagnoses / Procedures Referred By Contac t Referred To Contact [facility] Diagnoses Colon cancer screening Procedures COLONOSCOPY SCREENING COLONOSCOPY FLX DX W/COLLJ SPEC WHEN PFMarcella Cho PA-C [address] [place] [address] [facility] [place] [address] [place] [address] Referral ID Status Reason Start Date Expiration Date V isits Requested Visits Authorized [id number] Closed Auto-Generate d Referral 08/16/2021 08/16/2022 1 1 [facility] Outpatient Procedure (Routine) - Closed Specialty Diagnoses / Procedures Referred By Linn carrillo Referred To Contact [facility] Diagnoses Chronic anticoagulation Thoracic aortic aneurysm without rupture (HCC) Status post aortic valve repair Procedures ECHO TTE W/DOPPLER, COMPLETE Justina Hadley, ELECTRICAL DESIGNER DRAFTER.BEEKEEPER FARMER [address] [place] [address] [facility] [address] [address] Referral ID Status Reason Start Date Expiration Date V isits Requested Visits Authorized [id number] Closed Auto-Generate d Referral 07/03/2021 07/03/2022 1 1 [facility] Advance Directives No Advanced Directives Records FoundDocuments on File Type Date Recorded Patient Immigration Coordinator Expl anation Advance Directive(s) 09/12/2021 7:14 AM Documents on File Type Date Recorded Patient Immigration Coordinator Expl anation Advance Directive(s) 09/12/2021 7:14 AM [...] Diagnoses Driving safety issue Procedures CONSULT TO MINERAL SURVEYOR OCCUPATIONAL THERAPY EVAL HIGH COMPLEX 60 MINS Tamie Kaur MD [address] [place] [address] [facility] [place] [address] [place] [id number] Referral ID Status Reason Start Date Expiration Date Visits Requested Visits Authorized [id number] Authorized PCP Requested Referral Auto-Generate d Referral 09/07/2022 09/07/2023 99 99 Specialty Diagnoses / Procedures Referred By Contac t Referred To Contact [facility] Diagnoses Polyneuropathy Procedures CONSULT TO PHYSICAL THERAPY PHYSICAL THERAPY EVALUATION HIGH COMPLEX 45 MINS Tamie Kaur MD [address] [place] [address] [facility] [address] [address] Referral ID Status Reason Start Date Expiration Date Visits Requested Visits Authorized [id number] Authorized PCP Requested Referral Auto-Generate d Referral 04/17/2022 04/17/2023 99 99 Specialty Diagnoses / Procedures Referred By Contac t Referred To Contact Psychology Diagnoses Generalized anxiety disorder Procedures CONSULT TO PSYCHOLOGY OFFICE/OUTPATIENT [facility] 60-74 MINUTES Tamie Kaur MD [address] [phone] Referral ID Status Reason Start Date Expiration Date Visits Requested Visits Authorized [id number] Pending Review PCP Requested Referral 04/17/2022 04/17/2023 1 1 Specialty Diagnoses / Procedures Referred By Contac t Referred To Contact Podiatry Diagnoses Type 2 diabetes mellitus with diabetic neuropathy, with long-term current use of insulin (HCC) Procedures CONSULT TO PODIATRY OFFICE/OUTPATIENT [facility] 60-74 MINUTES PodlogRoselia hernandez APRN.BEEKEEPER FARMER [address] [place] [address] Referral ID Status Reason Start Date Expiration Date Visits Requested Visits Authorized [id number] Authorized PCP Requested Referral 01/12/2022 01/11/2023 1 1 Specialty Diagnoses / Procedures Referred By Contac t Referred To Contact [facility] Diagnoses Altered mental status, unspecified altered mental status type Procedures CONSULT TO SPEECH THERAPY OFFICE/OUTPATIENT [facility] 60-74 MINUTES Tamie Kaur MD [address] [place] [address] [facility] [address] [address] Referral ID Status Reason Start Date Expiration Date Visits Requested Visits Authorized [id number] Authorized Auto-Generat ed Referral 01/05/2022 01/05/2023 99 99 Specialty Diagnoses / Procedures Referred By Contac t Referred To Contact [facility] Diagnoses Abnormality of gait due to impairment of balance Procedures CONSULT TO PHYSICAL THERAPY PHYSICAL THERAPY EVALUATION HIGH COMPLEX 45 MINS Tamie Kaur MD [address] [place] [address] [facility] [place] [address] Referral ID Status Reason Start Date Expiration Date Visits Requested Visits Authorized [id number] Authorized PCP Requested Referral Auto-Generate d Referral 01/05/2022 01/05/2023 99 99 Specialty Diagnoses / Procedures Referred By Contac t Referred To Contact [facility] Diagnoses Altered mental status, unspecified altered mental status type Procedures EPIL EEG ROUTINE ELECTROENCEPHALOGRAM REC COMA/SLEEP ONLY Tamie Kaur MD [address] [place] [address] [place] [address] Referral ID Status Reason Start Date Expiration Date Visits Requested Visits Authorized [id number] Authorized Auto-Generat ed Referral 01/05/2022 01/05/2023 1 1 Specialty Diagnoses / Procedures Referred By Contac t Referred To Contact Neurology Diagnoses Altered mental status, unspecified altered mental status type Procedures CONSULT TO NEUROLOGY OFFICE/OUTPATIENT [facility] 60-74 MINUTES Abdulaziz Caldera MD [address] [place] [address] Referral ID Status Reason Start Date Expiration Date Visits Requested Visits Authorized [id number] Authorized PCP Requested Referral 01/01/2022 01/01/2023 1 [...] 45 MINS Tamie Kaur MD [address] [place] [address] [facility] [address] [address] Referral ID Status Reason Start Date Expiration Date Visits Requested Visits Authorized [id number] Authorized PCP Requested Referral Auto-Generate d Referral [...] mo Reason Comments Hospital Follow Up [facility] discharged Reason Comments Results Reason Comments Consult altered mental statu s Specialty Diagnoses / Procedures Referred By Linn carrillo Referred To Contact Neurology Diagnoses Altered mental status, unspecified altered mental status type Procedures CONSULT TO NEUROLOGY OFFICE/[facility] 60-74 MINUTES Abdulaziz Caldera MD [address] [place] [address] Referral ID Status Reason Start Date Expiration Date V isits Requested Visits Authorized [id number] Closed PCP Requested Referral 01/01/2022 01/01/2023 1 [...] Nursing Plan of Care Update Reason Comments [facility] PT POC Reason Comments OT plan of care Reason Onset Date Comments Refill Request 07/25/2022 Reason Comments Home Health-Nursing Update Reason Onset Date Comments Anticoagulation 07/31/2022 Specialty Diagnoses / Procedures Referred By Linn carrillo Referred To Contact Ent - Otolaryngology Diagnoses Chronic frontal sinusitis Procedures CONSULT TO ENT OFFICE/OUTPATIENT NEW HIGH MDM 60-74 MINUTES Abdulaziz Caldera MD [address] [place] [address] Referral ID Status Reason Start Date Expiration Date V isits Requested Visits Authorized [id number] Closed PCP Requested Referral 07/12/2022 07/12/2023 1 [...] Care Teams (unrecognized sec tion and content) Molecular Physicist Relationship Specialty Start Date End Date Abdulaziz Caldera MD [address] [place] [address] PCP - General Family Practice 11/23/20 Molecular Physicist Relationship Specialty Start Date End Date Abdulaziz Caldera MD [address] [facility] [address] PCP - General Family Practice 11/23/20 Molecular Physicist Relationship Specialty Start Date End Date Abdulaziz Caldera MD [address] [facility] [address] PCP - General Family Practice 11/23/20 Molecular Physicist Relationship Specialty Start Date End Date Abdulaziz Caldera MD [address] [facility] [address] PCP - General Family Practice 11/23/20 Molecular Physicist Relationship Specialty Start Date End Date Abdulaziz Caldera MD [facility] [place] [address] PCP - General Family Practice 11/23/20 Molecular Physicist Relationship Specialty Start Date End Date Abdulaziz Caldera MD [address] [facility] [place] [address] PCP - General Family Practice 11/23/20 Molecular Physicist Relationship Specialty Start Date End Date Abdulaziz Caldera MD [address] [facility] [place] [address] PCP - General Family Practice 11/23/20 Molecular Physicist Relationship Specialty Start Date End Date Abdulaziz Caldera MD [address] [facility] [place] [address] PCP - General Family Practice 11/23/20 Molecular Physicist Relationship Specialty Start Date End Date Abdulaziz Caldera MD [address] [facility] [place] [address] PCP - General Family Practice 11/23/20 Molecular Physicist Relationship Specialty Start Date End Date Abdulaziz Caldera MD [address] [facility] [place] [address] PCP - General Family Practice 11/23/20 Molecular Physicist Relationship Specialty Start Date End Date Abdulaziz Caldera MD [address] [facility] [place] [address] PCP - General Family Practice 11/23/20 Molecular Physicist Relationship Specialty Start Date End Date Abdulaziz Caldera MD [address] [facility] [place] [address] PCP - General Family Practice 11/23/20 Molecular Physicist Relationship Specialty Start Date End Date Abdulaziz Caldera MD [address] [facility] [place] [address] PCP - General Family Practice 11/23/20 Molecular Physicist Relationship Specialty Start Date End Date Abdulaziz Caldera MD [address] [facility] [place] [address] PCP - General Family Practice 11/23/20 Molecular Physicist Relationship Specialty Start Date End Date Abdulaziz Caldera MD [address] [facility] [place] [address] PCP - General Family Practice 11/23/20 Molecular Physicist Relationship Specialty Start Date End Date Abdulaziz Caldera MD [address] [facility] [place] [address] PCP - General Family Practice 11/23/20 Molecular Physicist Relationship Specialty Start Date End Date Abdulaziz Caldera MD [address] [facility] [place] [address] PCP - General Family Practice 11/23/20 Molecular Physicist Relationship Specialty Start Date End Date Abdulaziz Caldera MD [address] [facility] [place] [address] PCP - General Family Practice 11/23/20 Molecular Physicist Relationship Specialty Start Date End Date Abdulaziz Caldera MD [address] [facility] [place] [address] PCP - General Family Practice 11/23/20 Molecular Physicist Relationship Specialty Start Date End Date Abdulaziz Caldera MD [address] [facility] [place] [address] PCP - General Family Practice 11/23/20 Molecular Physicist Relationship Specialty Start Date End Date Abdulaziz Caldera MD [address] [facility] [place] [address] PCP - General Family Practice 11/23/20 Molecular Physicist Relationship Specialty Start Date End Date Abdulaziz Caldera MD [address] [facility] [place] [address] PCP - General Family Medicine 11/23/20 Molecular Physicist Relationship Specialty Start Date End Date Abdulaziz Caldera MD [address] [facility] [place] [address] PCP - General Family Medicine 11/23/20 Molecular Physicist Relationship Specialty Start Date End Date Abdulaziz Caldera MD [address] [facility] [place] [address] PCP - General Family Medicine 11/23/20 Molecular Physicist Relationship Specialty Start Date End Date Abdulaziz Caldera MD [address] [facility] [place] [address] PCP - General Family Medicine 11/23/20 Molecular Physicist Relationship Specialty Start Date End Date Abdulaziz Caldera MD [address] [facility] [place] [address] PCP - General Family Medicine 11/23/20 Molecular Physicist Relationship Specialty Start Date End Date Abdulaziz Caldera MD [address] [facility] [place] [address] PCP - General Family Medicine 11/23/20 Molecular Physicist Relationship Specialty Start Date End Date Abdulaziz Caldera MD [address] [facility] [place] [address] PCP - General Family Medicine 11/23/20 Molecular Physicist Relationship Specialty Start Date End Date Abdulaziz Caldera MD [address] [facility] [place] [address] PCP - General Family Medicine 11/23/20 Molecular Physicist Relationship Specialty Start Date End Date Abdulaziz Caldera MD [address] [place] [address] PCP - General Family Medicine 11/23/20 Molecular Physicist Relationship Specialty Start Date End Date Abdulaziz Caldera MD [address] [facility] [place] [address] PCP - General Family Medicine 11/23/20 Molecular Physicist Relationship Specialty Start Date End Date Abdulaziz Caldera MD [address] [facility] [place] [address] PCP - General Family Medicine 11/23/20 Molecular Physicist Relationship Specialty Start Date End Date Abdulaziz Caldera MD [address] [facility] [place] [address] PCP - General Family Medicine 11/23/20 Molecular Physicist Relationship Specialty Start Date End Date Abdulaziz Caldera MD [address] [facility] [place] [address] PCP - General Family Medicine 11/23/20 Molecular Physicist Relationship Specialty Start Date End Date Abdulaziz Caldera MD [address] [facility] [place] [address] PCP - General Family Medicine 11/23/20 Molecular Physicist Relationship Specialty Start Date End Date Abdulaziz Caldera MD [address] [facility] [place] [address] PCP - General Family Medicine 11/23/20 Molecular Physicist Relationship Specialty Start Date End Date Abdulaziz Caldera MD [address] [facility] [place] [address] PCP - General Family Medicine 11/23/20 Molecular Physicist Relationship Specialty Start Date End Date Abdulaziz Caldera MD [address] [facility] [place] [address] PCP - General Family Medicine 11/23/20 Molecular Physicist Relationship Specialty Start Date End Date Abdulaziz Caldera MD [address] [facility] [place] [address] PCP - General Family Medicine 11/23/20 Molecular Physicist Relationship Specialty Start Date End Date Abdulaziz Caldera MD [address] [facility] [place] [address] PCP - General Family Medicine 11/23/20 Molecular Physicist Relationship Specialty Start Date End Date Abdulaziz Caldera MD [address] [facility] [place] [address] PCP - General Family Medicine 11/23/20 Molecular Physicist Relationship Specialty Start Date End Date Abdulaziz Caldera MD [address] [facility] [place] [address] PCP - General Family Medicine 11/23/20 (unrecognized sect ion and content) No Status Records FoundNo Status Records FoundNo Status Records FoundNo Status Records Found INFORMATION SOURCE (unrecogn ized section and content) DATE CREATED AUTHOR AUTHOR'S ORGANIZ ATION 02/04/2022 [facility] DATE CREATED AUTHOR AUTHOR'S ORGANIZ ATION 04/19/2022 [facility] DATE CREATED AUTHOR AUTHOR'S DESTINY ATION 05/30/2023 [facility] FOR RECORDS PERTAINING TO PATIENTS WHO [...] BE BASED ON THE PRIMARY CLINICAL RECORDS. [facility] [employer] [facility]. provides no warranty or guarantee of the accuracy or completeness of information in this document.
[2023-08-19 08:45] LABS: INR Fingerstick 2.7; Prothrombin Time Fingerstick 29.2 SEC (11.7-14.9)
== END ==
LOC: OLS.ACH 05:00
PROVIDERS: PCP Family Medicine; Visit Provider Internal Medicine
DX: I48.0 Paroxysmal atrial fibrillation (principal)
CPT/HCPCS: 36416; 85610

== ENCOUNTER → 2023-08-26 | Outpatient (REF) | payer MEDICARE, OTHER, SELFPAY ==
[2023-08-26 10:38] LABS: International Normalized Ratio 2.2; Prothrombin Time (Protime)PT. 24.7 SECONDS (11.7-14.9)
== END ==
LOC: OLS.ACH 05:00
PROVIDERS: PCP Family Medicine; Visit Provider Internal Medicine
DX: Z95.0 Presence of cardiac pacemaker (principal); Z86.711 Personal history of pulmonary embolism; I70.0 Atherosclerosis of aorta
CPT/HCPCS: 36415; 85610

== ENCOUNTER → 2023-09-09 | Outpatient (REF) | payer MEDICARE, OTHER, SELFPAY ==
--- OUTSIDE RECORDS SUMMARY | 2023-09-09 03:50 | XMS RPT_ITS | CCD ---
Author Name Unknown Address [address] [place] [address] Organization [facility] Care Team Providers Care Laborer Demolition Name Role Phone Abdulaziz Caldera MD Primary [...] pantoprazole; Translations: [PANTOPRAZOLE] Drug Allergy 03-12-2020 Diarrhea [facility] Medications Current Medications Medication Drug [...] Coronary atherosclerosis; Translations: [Atherosclerotic heart disease of [place] coronary artery without angina pectoris] Chronic Diabetes [...] sources) Long-term current use of anticoagulant; Translations: [roasterman (current) use of anticoagulants] Onset: 05-07-2018 11-06-2018 Episodic Other aftercare (1 source) longterm (current) use of anticoagulants; Translations: [Chronic anticoagulation] Onset: 11-06-2018 Episodic Other aftercare (1 source) roasterman (current) use of insulin; Translations: [Type 2 [...] Results Test Name Value Interpretation Reference Range [facility] it Vital Signs Date Time Vital Sign Value Performing Clinician Scott quinn 09-07-2022 11:01-0500 Body height 185.4 cm Tamie Kaur MD Work Phone: [facility] 09-07-2022 11:01-0500 Body weight 113.4 kg Tamie Kaur MD Work Phone: [facility] 09-07-2022 11:01-0500 Diastolic blood pressure 57 mm[Hg] Tamie Kaur MD Work Phone: [facility] 09-07-2022 11:01-0500 Heart rate 64 /min Tamie Kaur MD Work Phone: [facility] 09-07-2022 11:01-0500 Respiratory rate 16 /min Tamie Kaur MD Work Phone: [facility] 09-07-2022 11:01-0500 SaO2% (BldA) [Mass fraction] 99 % Tamie Kaur MD Work Phone: [facility] 09-07-2022 11:01-0500 Systolic blood pressure 124 mm[Hg] Tamie Kaur MD Work Phone: [facility] 08-09-2022 16:35-0500 Body weight 113.4 kg Abdulaziz Caldera MD Work Phone: [facility] 08-09-2022 16:35-0500 Diastolic blood pressure 62 mm[Hg] Abdulaziz Caldera MD Work Phone: [facility] 08-09-2022 16:35-0500 Heart rate 64 /min Abdulaziz Caldera MD Work Phone: [facility] 08-09-2022 16:35-0500 Respiratory rate 16 /min Abdulaziz Caldera MD Work Phone: [facility] 08-09-2022 16:35-0500 SaO2% (BldA) [Mass fraction] 96 % Abdulaziz Caldera MD Work Phone: [facility] 08-09-2022 16:35-0500 Systolic blood pressure 112 mm[Hg] Abdulaziz Caldera MD Work Phone: [facility] 04-17-2022 11:23-0400 Body height 185.4 cm Tamie Kaur MD Work Phone: [facility] 04-17-2022 11:23-0400 Body weight 114.31 kg Tamie Kaur MD Work Phone: [facility] 04-17-2022 11:23-0400 Diastolic blood pressure 71 mm[Hg] Tamie Kaur MD Work Phone: [facility] 04-17-2022 11:23-0400 Heart rate 72 /min Tamie Kaur MD Work Phone: [facility] 04-17-2022 11:23-0400 Respiratory rate 18 /min Tamie Kaur MD Work Phone: [facility] 04-17-2022 11:23-0400 SaO2% (BldA) [Mass fraction] 98 % Tamie Kaur MD Work Phone: [facility] 04-17-2022 11:23-0400 Systolic blood pressure 116 mm[Hg] Tamie Kaur MD Work Phone: [facility] 04-16-2022 13:09-0400 Body height 185.4 cm Abdulaziz Caldera MD Work Phone: [facility] 04-16-2022 13:09-0400 Body weight 114.31 kg Abdulaziz Caldera MD Work Phone: [facility] 04-16-2022 13:09-0400 Diastolic blood pressure 72 mm[Hg] Abdulaziz Caldera MD Work Phone: [facility] 04-16-2022 13:09-0400 Heart rate 70 /min Abdulaziz Caldera MD Work Phone: [facility] 04-16-2022 13:09-0400 Respiratory rate 16 /min Abdulaziz Caldera MD Work Phone: [facility] 04-16-2022 13:09-0400 SaO2% (BldA) [Mass fraction] 98 % Abdulaziz Caldera MD Work Phone: [facility] 04-16-2022 13:09-0400 Systolic blood pressure 132 mm[Hg] Abdulaziz Caldera MD Work Phone: [facility] 04-06-2022 09:36-0400 Body weight 114.31 kg Roselia Madrigal [employer] Work Phone: [facility] 04-06-2022 09:36-0400 Diastolic blood pressure 62 mm[Hg] Roselia Podlogar [employer] SUPER[employer] Work Phone: [facility] 04-06-2022 09:36-0400 Heart rate 62 /min Roselia Podlogar WE[employer] SUPER[employer]OR Work Phone: [facility] 04-06-2022 09:36-0400 Respiratory rate 16 /min Roselia Podlogar WE[employer] SUPER[employer] Work Phone: [facility] 04-06-2022 09:36-0400 SaO2% (BldA) [Mass fraction] 97 % Roselia Podlogar [employer] SUPER[employer] Work Phone: [facility] 04-06-2022 09:36-0400 Systolic blood pressure 112 mm[Hg] Roselia Podlogar [employer] SUPER[employer] Work Phone: [facility] 03-07-2022 11:12-0400 Body weight 114.76 kg Abdulaziz Caldera MD Work Phone: [facility] 03-07-2022 11:12-0400 Diastolic blood pressure 70 mm[Hg] Abdulaziz Caldera MD Work Phone: [facility] 03-07-2022 11:12-0400 Heart rate 64 /min Abdulaziz Caldera MD Work Phone: [facility] 03-07-2022 11:12-0400 Respiratory rate 16 /min Abdulaziz Caldera MD Work Phone: [facility] 03-07-2022 11:12-0400 Systolic blood pressure 118 mm[Hg] Abdulaziz Caldera MD Work Phone: [facility] 03-05-2022 12:00-0400 Diastolic blood pressure 60 mm[Hg] Rosa Elena Lemon PT [facility] 03-05-2022 12:00-0400 Systolic blood pressure 112 mm[Hg] Rosa Elena Lemon PT [facility] 01-12-2022 08:00-0400 Diastolic blood pressure 78 mm[Hg] Rosa Elena Lemon PT [facility] 01-12-2022 08:00-0400 Systolic blood pressure 130 mm[Hg] Rosa Elena Lemon PT [facility] 01-05-2022 09:56-0400 Body height 185.4 cm Tamie Kuar MD Work Phone: [facility] 01-05-2022 09:56-0400 Body weight 111.58 kg Tamie Kaur MD Work Phone: [facility] 01-05-2022 09:56-0400 Diastolic blood pressure 62 mm[Hg] Tamie Kaur MD Work Phone: [facility] 01-05-2022 09:56-0400 Heart rate 58 /min Tamie Kaur MD Work Phone: [facility] 01-05-2022 09:56-0400 Respiratory rate 16 /min Tamie Kaur MD Work Phone: [facility] 01-05-2022 09:56-0400 SaO2% (BldA) [Mass fraction] 97 % Tamie Kaur MD Work Phone: [facility] 01-05-2022 09:56-0400 Systolic blood pressure 117 mm[Hg] Tamie Kaur MD Work Phone: [facility] 01-01-2022 10:12-0400 Body temperature 97.39 [degF] Abdulaziz Caldera MD Work Phone: [facility] 01-01-2022 10:12-0400 Body weight 111.77 kg Abdulaziz Caldera MD Work Phone: [facility] 01-01-2022 10:12-0400 Diastolic blood pressure 64 mm[Hg] Abdulaziz Caldera MD Work Phone: [facility] 01-01-2022 10:12-0400 Heart rate 47 /min Abdulaziz Caldera MD Work Phone: [facility] 01-01-2022 10:12-0400 Respiratory rate 18 /min Abdulaziz Caldera MD Work Phone: [facility] 01-01-2022 10:12-0400 SaO2% (BldA) [Mass fraction] 98 % Abdulaziz Caldera MD Work Phone: [facility] 01-01-2022 10:12-0400 Systolic blood pressure 112 mm[Hg] Abdulaziz Caldera MD Work Phone: [facility] 01-01-2022 08:55-0400 Body weight 112.49 kg Justina Leonie WE[employer]PER[employer] Work Phone: [facility] 01-01-2022 08:55-0400 Diastolic blood pressure 74 mm[Hg] Justina Leonie [employer] SUPER[employer] Work Phone: [facility] 01-01-2022 08:55-0400 Heart rate 60 /min Justina Leonie [employer] SUPER[employer] Work Phone: [facility] 01-01-2022 08:55-0400 Respiratory rate 18 /min Justina Leonie WE[employer] SUPER[employer]OR Work Phone: [facility] 01-01-2022 08:55-0400 Systolic blood pressure 147 mm[Hg] Justina Leonie [employer] SUPER[employer] Work Phone: [facility] 12-27-2021 21:22-0400 Diastolic blood pressure 71 mm[Hg] DR MELANIA WORKMAN MD [facility] 12-27-2021 21:22-0400 Heart rate 73 /min DR MELANIA WORKMAN MD [facility] 12-27-2021 21:22-0400 Respiratory rate 24 /min DR MELANIA WORKMAN MD [facility] 12-27-2021 21:22-0400 Systolic blood pressure 121 mm[Hg] DR MELANIA WORKMAN MD [facility] 12-27-2021 20:06-0400 Diastolic blood pressure 59 mm[Hg] DR MELANIA WORKMAN MD [facility] 12-27-2021 20:06-0400 Heart rate 80 /min DR MELANIA WORKMAN MD [facility] 12-27-2021 20:06-0400 Respiratory rate 26 /min DR MELANIA WORKMAN MD [facility] 12-27-2021 20:06-0400 Systolic blood pressure 112 mm[Hg] DR MELANIA WORKMAN MD [facility] 12-27-2021 19:19-0400 Body temperature 98.6 [degF] DR MELANIA WORKMAN MD [facility] 12-27-2021 19:19-0400 Diastolic blood pressure 76 mm[Hg] DR MELANIA WORKMAN MD [facility] 12-27-2021 19:19-0400 Heart rate 82 /min DR MELANIA WORKMAN MD [facility] 12-27-2021 19:19-0400 Respiratory rate 26 /min DR MELANIA WORKMAN MD [facility] 12-27-2021 19:19-0400 Systolic blood pressure 138 mm[Hg] DR MELANIA WORKMAN MD [facility] 12-27-2021 17:36-0400 Body temperature 102.56 [degF] DR MELANIA WORKMAN MD [facility] 12-27-2021 17:36-0400 Body weight [address] MELANIA WORKMAN MD [facility] 12-27-2021 17:36-0400 Heart rate 104 /min DR MELANIA WORKMAN MD [facility] 12-14-2021 15:10-0400 Body temperature 98.2 [degF] Abdulaziz Caldera MD Work Phone: [facility] 12-14-2021 15:10-0400 Body weight 110.77 kg Abdulaziz Caldera MD Work Phone: [facility] 12-14-2021 15:10-0400 Diastolic blood pressure 70 mm[Hg] Abdulaziz Caldera MD Work Phone: [facility] 12-14-2021 15:10-0400 Heart rate 54 /min Abdulaziz Caldera MD Work Phone: [facility] 12-14-2021 15:10-0400 Respiratory rate 16 /min Abdulaziz Caldera MD Work Phone: [facility] 12-14-2021 15:10-0400 SaO2% (BldA) [Mass fraction] 96 % Abdulaziz Caldera MD Work Phone: [facility] 12-14-2021 15:10-0400 Systolic blood pressure 130 mm[Hg] Abdulaziz Caldera MD Work Phone: [facility] 12-08-2021 16:23-0400 Diastolic blood pressure 64 mm[Hg] Abdulaziz Caldera MD Work Phone: [facility] 12-08-2021 16:23-0400 Heart rate 85 /min Abdulaziz Caldera MD Work Phone: [facility] 12-08-2021 16:23-0400 Systolic blood pressure 110 mm[Hg] Abdulaziz Caldera MD Work Phone: [facility] 10-23-2021 13:05-0400 Body temperature 97.3 [degF] Marcella Saint Benedict PA-C Work Phone: [facility] 10-23-2021 13:05-0400 Body weight 114.58 kg Marcella Xavier PA-C Work Phone: [facility] 10-23-2021 13:05-0400 Diastolic blood pressure 56 mm[Hg] Marcella Saint Benedict PA-C Work Phone: [facility] 10-23-2021 13:05-0400 Heart rate 85 /min Marcella Saint Benedict PA-C Work Phone: [facility] 10-23-2021 13:05-0400 SaO2% (BldA) [Mass fraction] 98 % Marcella Xavier PA-C Work Phone: [facility] 10-23-2021 13:05-0400 Systolic blood pressure 132 mm[Hg] Marcella Xavier PA-C Work Phone: [facility] 10-10-2021 10:07-0400 Diastolic blood pressure 68 mm[Hg] Richard Jones MD Work Phone: [facility] 10-10-2021 10:07-0400 Heart rate 69 /min Richard Jones MD Work Phone: [facility] 10-10-2021 10:07-0400 Respiratory rate 16 /min Richard Jones MD Work Phone: [facility] 10-10-2021 10:07-0400 SaO2% (BldA) [Mass fraction] 98 % Richard Jones MD Work Phone: [facility] 10-10-2021 10:07-0400 Systolic blood pressure 150 mm[Hg] Richard Jones MD Work Phone: [facility] 10-10-2021 08:01-0400 Body temperature 97 [degF] Richard Jones MD Work Phone: [facility] Encounters Encounter Date Encounter Type Care Provider Facility Start: 01-28-2023 Telephone encounter Luis Caldera MD Work Phone: [facility] [place] Procedures Date Procedure Procedure Detail Performing Clinician Start: 04-06-2022 INFLUENZA SEASONAL QUADRIVALENT HIGH DOSE AGE 65+ Roselia Podlogar [employer] Work Phone: Start: 04-06-2022 PFIZER-BIONTECH COVI D-19 BIVALENT BOOSTER VACCINE, AGE 12+ YR Roselia Podlogar [employer] Work Phone: Start: 04-06-2022 Adult depression scr eening assessment Roselia Podlogar [employer]PER[employer] Work Phone: Start: 03-07-2022 PROTHROMBIN TIME/PT Chr mine Caldera MD Work Phone: Start: 03-07-2022 Adult depression scr eening assessment Abdulaziz Caldera MD Work Phone: Start: 01-09-2022 Echo tthrc r-t 2d w/wom-mode compl spec&colr d Justina E Leonie [employer] Work Phone: Start: 01-01-2022 Urnls dip stick/tabl [...] Activity Detail Author Start: 10-11-2031 Colonoscopy COLONOSCOPY [facility] Start: 10-11-2031 COLORECTAL CANCER SCREENING COLORECTAL CANCER SCREENING [facility] Start: 10-10-2024 Colonoscopy COLONOSCOPY [facility] Start: 10-10-2024 COLORECTAL CANCER SCREENING COLORECTAL CANCER SCREENING [facility] Start: 01-05-2024 ANNUAL PCP TEAM CHRONIC DISEASE VISIT ANNUAL PCP TEAM CHRONIC DISEASE VISIT [facility] Start: 01-05-2024 BP CONTROLLED (<130/80) BP CONTROLLED (<130/80) [facility] Start: 12-04-2023 BP CONTROLLED (<130/80) BP CONTROLLED (<130/80) [facility] Start: 11-20-2023 ANNUAL PCP TEAM CHRONIC DISEASE VISIT ANNUAL PCP TEAM CHRONIC DISEASE VISIT [facility] Start: 11-20-2023 BP CONTROLLED (<130/80) BP CONTROLLED (<130/80) [facility] Start: 09-07-2023 BP CONTROLLED (<130/80) BP CONTROLLED (<130/80) [facility] Start: 08-13-2023 HEMOGLOBIN/HEMATOCRIT HEMOGLOBIN/HEMATOCRIT [facility] Start: 08-13-2023 SERUM CREATININE SERUM CREATININE [facility] Start: 08-09-2023 ANNUAL PCP TEAM CHRONIC DISEASE VISIT ANNUAL PCP TEAM CHRONIC DISEASE VISIT [facility] Start: 08-09-2023 BP CONTROLLED (<130/80) BP CONTROLLED (<130/80) [facility] Start: 07-12-2023 ANNUAL PCP TEAM CHRONIC DISEASE VISIT ANNUAL PCP TEAM CHRONIC DISEASE VISIT [facility] Start: 07-12-2023 BP CONTROLLED (<130/80) BP CONTROLLED (<130/80) [facility] Start: 04-17-2023 BP CONTROLLED (<130/80) BP CONTROLLED (<130/80) [facility] Start: 04-16-2023 ANNUAL PCP TEAM CHRONIC DISEASE VISIT ANNUAL PCP TEAM CHRONIC DISEASE VISIT [facility] Start: 04-06-2023 Adult depression screening assessment DEPRESSION SCREENING [facility] Start: 04-06-2023 ANNUAL PCP TEAM CHRONIC DISEASE VISIT ANNUAL PCP TEAM CHRONIC DISEASE VISIT [facility] Start: 04-06-2023 BP CONTROLLED (<130/80) BP CONTROLLED (<130/80) [place] [facility] Start: 03-30-2023 3 comp foot exam completed DIABETIC FOOT EXAM [facility] Start: 03-15-2023 Influenza vaccination INFLUENZA (#1) [facility] Start: 03-07-2023 Adult depression screening assessment DEPRESSION SCREENING [facility] Start: 03-07-2023 ANNUAL PCP TEAM CHRONIC DISEASE VISIT ANNUAL PCP TEAM CHRONIC DISEASE VISIT [facility] Start: 03-07-2023 BP CONTROLLED (<130/80) BP CONTROLLED (<130/80) [facility] Start: 03-07-2023 SERUM CREATININE SERUM CREATININE [facility] Start: 03-05-2023 BP CONTROLLED (<130/80) BP CONTROLLED (<130/80) [facility] Start: 03-02-2023 Hepatitis B screening URINE ALBUMIN:CREATININE RATIO [facility] Start: 02-10-2023 Hemoglobin A1c/Hemoglobin.total in Blood HBA1C [facility] Start: 01-05-2023 BP CONTROLLED (<130/80) BP CONTROLLED (<130/80) [facility] Start: 01-01-2023 ANNUAL PCP TEAM CHRONIC DISEASE VISIT ANNUAL PCP TEAM CHRONIC DISEASE VISIT [facility] Start: 01-01-2023 BP CONTROLLED (<130/80) BP CONTROLLED (<130/80) [facility] Start: 01-01-2023 Hepatitis B surface antibody level LDL CHOLESTEROL [facility] Start: 01-01-2023 SERUM CREATININE SERUM CREATININE [facility] Start: 12-14-2022 ANNUAL PCP TEAM CHRONIC DISEASE VISIT ANNUAL PCP TEAM CHRONIC DISEASE VISIT [facility] Start: 12-08-2022 ANNUAL PCP TEAM CHRONIC DISEASE VISIT ANNUAL PCP TEAM CHRONIC DISEASE VISIT [facility] Start: 12-08-2022 BP CONTROLLED (<130/80) BP CONTROLLED (<130/80) [facility] Start: 09-06-2022 ANNUAL PCP TEAM CHRONIC DISEASE VISIT ANNUAL PCP TEAM CHRONIC DISEASE VISIT [facility] Start: 09-02-2022 Hemoglobin A1c/Hemoglobin.total in Blood HBA1C [facility] Start: 08-30-2022 SERUM CREATININE SERUM CREATININE [facility] Start: 08-09-2022 End: 10-09-2022 CBC W Auto Differential panel - Blood CBC + DIFF Lab Routine Type 2 diabetes mellitus with diabetic neuropathy, with long-term current use of insulin (HCC) Expected: 08/09/2022, Expires: 10/09/2022 [facility] Work Phone: Immunizations Immunization Date Immunization Notes Care Provider Fa cili 04-06-2022 COVID-19 booster vaccine, age 12+ yr, bivalent (PFIZER-BIONTECH) Roselia Podlogdavid WE[employer] SUPER[employer] Work Phone: [facility] 04-06-2022 influenza, high-dose , quadrivalent vaccine (FLUZONE HIGH DOSE QUADRIVALENT) Roselia Raglandlogdavid WE[employer]ER [employer] SUPER[employer]OR Work Phone: [facility] 06-14-2021 influenza, high-dose , quadrivalent vaccine (FLUZONE HIGH DOSE QUADRIVALENT) Abdulaziz Caldera MD Work Phone: [facility] Work Phone: 02-24-2021 zoster vaccine recombinant Abdulaziz Caldera MD Work Phone: [facility] 09-30-2020 COVID-19 vaccine, ag e 12+ yr (PFIZER-BIONTECH - PURPLE TOP) Abdulaziz Caldera MD Work Phone: [facility] 09-09-2020 COVID-19 vaccine, ag e 12+ yr (PFIZER-BIONTECH - PURPLE TOP) Abdulaziz Caldera MD Work Phone: [facility] 04-16-2020 influenza, high-dose , quadrivalent vaccine (FLUZONE HIGH DOSE QUADRIVALENT) Abdulaziz Caldera MD Work Phone: [facility] 03-14-2020 zoster vaccine recombinant Abdulaziz Caldera MD Work Phone: [facility] Work Phone: 04-02-2019 influenza, high dose seasonal, preservative-free Abdulaziz Caldera MD Work Phone: [facility] Work Phone: 04-15-2018 influenza, high dose seasonal, preservative-free Abdulaziz Caldera MD Work Phone: [facility] 06-13-2017 influenza, high dose seasonal, preservative-free Abdulaziz Caldera MD Work Phone: [facility] 06-20-2016 influenza, high dose seasonal, preservative-free Abdulaziz Caldera MD Work Phone: [facility] 11-24-2015 pneumococcal polysaccharide vaccine, 23 valent Abdulaziz Caldera MD Work Phone: [facility] 05-16-2015 influenza, high dose seasonal, preservative-free Abdulaziz Caldera MD Work Phone: [facility] 10-27-2014 pneumococcal conjuga te vaccine, 13 valent Abdulaziz Caldera MD Work Phone: [facility] 10-27-2014 zoster vaccine, live Socrates Caldera MD Work Phone: [facility] 06-11-2011 influenza virus vaccine, unspecified formulation Abdulaziz Caldera MD Work Phone: [facility] 12-25-2010 tetanus toxoid, redu veronika diphtheria toxoid, and acellular pertussis vaccine, adsorbed Abdulaziz Caldera MD Work Phone: [facility] 04-25-2009 pneumococcal polysaccharide vaccine, 23 valent Abdulaziz Caldera MD Work Phone: [facility] 03-21-2000 diphtheria and tetan us toxoids, adsorbed for pediatric use Abdulaziz Caldera MD Work Phone: [facility] Work Phone: 02-11-1961 poliovirus vaccine, inactivated Abdulaziz Caldera MD Work Phone: [facility] Work Phone: 03-25-1959 poliovirus vaccine, inactivated Abdulaziz Caldera MD Work Phone: [facility] Work Phone: 10-16-1956 poliovirus vaccine, inactivated Abdulaziz Caldera MD Work Phone: [facility] Work Phone: 01-12-1956 poliovirus vaccine, inactivated Abdulaziz Caldera MD Work Phone: [facility] Work Phone: 12-03-1955 poliovirus vaccine, inactivated Abdulaziz Caldera MD Work Phone: [facility] Work Phone: Payers Date Payer Category Payer Unknown HOSPITAL/MEDICAL GENERIC MEDICAL GENERIC [id number] 2012-Present [phone] [address] [place] [address] Indemnity [id number] 2012 Unknown HOSPITAL/MEDICAL GENERIC MEDICAL GENERIC [id number] 2012-Present [phone] [address] [place] [address] Indemnity [id number] 2012 Unknown [id number] 2012 Medicare MEDICARE MEDICAR E A AND B [id number] 2012-Present [phone] [place] [address] Medicare [id number] 2012 Medicare MEDICARE MEDICAR E A AND B [id number] 2012-Present [phone] [place] [address] Medicare [id number] 2012 Medicare [id number] 1945 Unknown [id number] Social History Date Type Detail Facility Start: 11-23-2020 End: 04-06-2022 Tobacco smoking status NHIS Never smoked tobacco [facility] Start: 09-06-2021 End: 12-03-2022 Alcohol intake Current non-drinker of alcohol (finding) [facility] Start: 1945 Sex Assigned At Not on file [facility] Start: 08-07-2021 End: 04-17-2022 Exposure to SARS-CoV-2 (event) Not sure [facility] Tobacco smoking status No Smokin g Status Entered [facility] Sex Assigned At Male [facility] Start: 01-02-2022 End: 01-12-2022 Exposure to SARS-CoV-2 (event) Unable to assess [facility] Work Phone: Start: 11-23-2020 End: 04-06-2022 Tobacco use and exposure Smokeless tobacco non-user [facility] Work Phone: Start: 11-19-2022 End: 12-03-2022 History of Social function [facility] Work Phone: Start: 11-19-2022 End: 12-03-2022 Tobacco use panel [facility] Work Phone: Adult Depression Screening Assessment 2 [facility] Work Phone: Medical Equipment Procedure [...] Note Patient Outreach (EVELYN ROGERS) RICHARD ROY ([id number]) 1945 M Date Time Provider Department 05/28/23 GUDELIA HUITRON During your visit today, we recorded the following information about you: Gudelia Huitron MA 05/28/2023 12:44 PM Signed POPULATION HEALTH NAVIGATION OUTREACH Action/FYI NO ANSWER [employer] MESSAGE SENT ANNUAL MEDICARE WELLNESS Advance Directive Discussion Never done HbA1C due on 02/10/2023 Influenza Vaccine(1) due on 03/15/2023 Patient Identified by Name and : NO Outreach Outcome/Action Unable to reach patient: Phone number not valid / voicemail full Fooundt message sent Did you use a PCP [...] time a week. - blood sugar diagnostic ([employer] ULTRA TEST) test strip Test blood [...] [facility] 05-28-2023 Note HNO ID: [id number] Author: Gudelia Huitron MA Service: ? Author Type: Manager Material Type: Progress Notes Filed: 05/28/2023 12:44 PM Note Text: POPULATION HEALTH NAVIGATION OUTREACH Action/I NO ANSWER StoryvineHART MESSAGE SENT ANNUAL MEDICARE WELLNESS Advance Directive Discussion Never done HbA1C due on 02/10/2023 Influenza Vaccine(1) due on 03/15/2023 Patient Identified by Name and : NO Outreach Outcome/Action Unable to reach patient: Phone number not valid / voicemail full Ektronhart message sent Did you use a PCP [...] Note Patient Outreach (IN TMM[facility]) RICHARD ROY ([id number]) 1945 M Date Time Provider Department 02/12/23 ABDULAZIZ CALDERA During your visit today, we recorded the following information about you: Allergies As of Date: 02/12/2023 Noted Allergy Reaction PANTOPRAZOLE 09/24/2019 6 - Diarrhea Date Reviewed: 01/04/2023 Reviewed by: Tamika Grijalva LPN - Fully Assessed Visit Diagnosis:Diabetic retinopathy of right eye (HCC) [E11.319] Order(s):HGB A1C [TTAEE0R] Order #: [id number] FUTURE Prescriptions as of 02/15/2023 - metFORMIN [...] Hospital 01-28-2023 Miscellaneous Notes Miya with [facility] calls to report pt was admitted to their facility over the weekend. Miya is requesting immunization record be faxed to: [phone]. Immunization record faxed as requested. Tania Heller LPN documented in this encounter [facility] 01-24-2023 Miscellaneous Notes Phoned patient's [...] Patient's calling to say patient was at [facility] for rehabilitation after his hospitalization @ [facility] for confusion on 01/04. He was sent by squad to [facility] from [facility] on 01/21 due to episode of decreased [...] post hospital stay but it won't be [facility]. Vannessa Jorge, JACEY documented in this encounter [facility] 01-04-2023 Note HNO ID: [id number] Author: Abdulaziz Caldera MD Service: ? Author [...] prostatic hyperplasia) Cholelithiasis 09/25/2013 Chronic neutrophilia Benign-Dr. 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 ([facility]) 05/25/2018 History of transfusion Hyperlipidemia LDL goal < 100 04/01/2012 NSTEMI (non-ST elevated myocardial infarction) ([facility]) Pulmonary embolus, right ([facility]) 09/25/2013 Status post aortic valve repair 2005 Thoracic aneurysm without mention of rupture Type 2 diabetes mellitus with stage 3 chronic kidney disease, with long-term current use of insulin ([facility]) 06/20/2016 Vitamin D deficiency 01/03/2022 Previous Surgical History PAST SURGICAL HISTORY Procedure Laterality Date ABDOMINAL SURGERY HX AMPUTATION METATARSAL+TOE,SINGLE Right 05/25/2018 with delayed closure on 05/28/18. Dr. Obregon at [facility] COLONOSCOPY 10/10/2021 repeat in 3 [...] recommend ER evaluation. documented in this encounter [facility] 01-04-2023 Miscellaneous Notes No return [...] Vannessa Jorge RN documented in this encounter [facility] 01-03-2023 Note HNO ID: [id number] Author: Justina Escoto PT Service: ? Author [...] PARTIALLY MET, improved 8 to 9 reps [place] in home exercise program including cardiovascular exercise. [...] PARTIALLY MET, improved 8 to 9 reps [place] in home exercise program including cardiovascular exercise. [...] Justina Escoto PT documented in this encounter [facility] 12-31-2022 Note HNO ID: [id number] Author: Justina Escoto PT Service: ? Author [...] Treatment Time Minutes (timed/untimed): 42 Ira Ramos, ADMINISTRATIVE ASSISTANT DATA ENTRY Justina Escoto, PT [facility] 12-31-2022 [...] ALISIA Burch PT documented in this encounter [facility] 12-27-2022 Note HNO ID: [id number] Author: Justina Escoto PT Service: ? Author [...] Treatment Time Minutes (timed/untimed): 40 Ira Ramos, ADMINISTRATIVE ASSISTANT DATA ENTRY Justina Escoto, PT [facility] 12-27-2022 [...] ALISIA Burch PT documented in this encounter [facility] 12-24-2022 Note HNO ID: [id number] Author: Justina Escoto PT Service: ? Author [...] Justina Escoto PT documented in this encounter [facility] 12-17-2022 Note HNO ID: [id number] Author: Justina Escoto PT Service: ? Author [...] Justina Escoto PT documented in this encounter [facility] 12-14-2022 Note HNO ID: [id number] Author: Justina Escoto PT Service: ? Author [...] Justina Escoto PT documented in this encounter [facility] 12-12-2022 Note HNO ID: [id number] Author: Justina Escoto PT Service: ? Author [...] Justina Escoto PT documented in this encounter [facility] 12-06-2022 Note HNO ID: [id number] Author: Justina Escoto, PT Service: ? Author [...] [facility] 12-03-2022 Note HNO ID: [id number] Author: Bobbi Garcia MD Service: ? Author Type: Physician Type: Progress Notes Filed: 12/03/2022 12:13 PM Note Text: [facility] SE[facility]IONAL CARDIOLOGY Cardiology ([facility]) [address] [facility] [id number] OUTPATIENT VISIT DATE 12/03/2022 PRIMARY CARE PHYSICIAN: Abdulaziz Caldera [address] [place] [address] HISTORY OF PRESENT ILLNESS: Mr. 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 ([facility]) 05/25/2018 History of transfusion Hyperlipidemia LDL goal < 100 04/01/2012 NSTEMI (non-ST elevated myocardial infarction) ([facility]) Pulmonary embolus, right ([facility]) 09/25/2013 Status post aortic valve repair 2005 Thoracic aneurysm without mention of rupture Type 2 diabetes mellitus with stage 3 chronic kidney disease, with long-term current use of insulin ([facility]) 06/20/2016 Vitamin D deficiency 01/03/2022 PAST SURGICAL HISTORY Procedure Laterality Date ABDOMINAL SURGERY HX AMPUTATION METATARSAL+TOE,SINGLE Right 05/25/2018 with delayed closure on 05/28/18. Dr. Obregon at [facility] COLONOSCOPY 10/10/2021 repeat in 3 [...] 5 EachRfl: 5 warfarin (COUMADIN) 5 mg [id number] mg Saturday and Saturday, 7.5 mg all [...] [facility] 12-03-2022 Note HNO ID: [id number] Author: Justina Escoto, PT Service: ? 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 3: *discussed with and pt. that pt. stating I'm lazy. is not his personality and pt. states that he does not want to be this way, but he wants to be comfortable. (more content not included)... [facility] 11-29-2022 Note HNO ID: [id number] Author: Justina Escoto, PT Service: ? Author [...] 11 repetitions to reflect decreased fall risk. [place] in home exercise program including cardiovascular exercise. [...] Planned: 12 Planned Treatment Interventions: Therapeutic exercise (04201), Neuromuscular re-education (08321), Manual therapy (95782), Therapeutic activities (54315), Self-alf management (96835), Gait Training (26033), Patient/Family/Caregiver Education PLAN FOR NEXT VISIT: Assess [...] to the pharmacy. Please call patient at: [phone]. Nola Castro Pss documented in this encounter [facility] 11-19-2022 Miscellaneous Notes Pt notified [...] result): 09/24/2022 2.5 documented in this encounter [facility] 11-19-2022 Note HNO ID: [id number] Author: Abdulaziz Caldera MD Service: ? Author [...] Benign-Dr. 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 ([facility]) 05/25/2018 History of transfusion Hyperlipidemia LDL goal < 100 04/01/2012 NSTEMI (non-ST elevated myocardial infarction) ([facility]) Pulmonary embolus, right ([facility]) 09/25/2013 Status post aortic valve repair 2004 Thoracic aneurysm without mention of rupture Type 2 diabetes mellitus with stage 3 chronic kidney disease, with long-term current use of insulin ([facility]) 06/20/2016 Vitamin D deficiency 01/03/2022 Previous Surgical History PAST SURGICAL HISTORY Procedure Laterality Date ABDOMINAL SURGERY HX AMPUTATION METATARSAL+TOE,SINGLE Right 05/25/2018 with delayed closure on 05/28/18. Dr. Obregon at [facility] COLONOSCOPY 10/10/2021 repeat in 3 [...] [facility] 10-22-2022 Note HNO ID: [id number] Author: Arminda Obregon Service: ? Author Type: [...] [facility] 10-22-2022 Note HNO ID: [id number] Author: Blaire Sandoval RN Service: ? Author [...] Diabetic Foot Care documented in this encounter [facility] 10-22-2022 Instructions Arminda Obregon - [...] (or decreased sensation in your feet) a military communications specialist should always cut your toenails. Be Careful [...] Go to your health care provider or military communications specialist to treat these conditions. documented in this encounter [facility] 09-25-2022 Miscellaneous Notes Patient notified. [...] or narrative: no documented in this encounter [facility] 09-07-2022 Note HNO ID: [id number] Author: Tamie Kaur MD Service: ? Author [...] of folllow up after hospitalization in [facility]. he was admitted because of syncopal [...] others Since covid hit they went to [facility] and was staying in the house by [...] Benign-Dr. 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 ([facility]) 05/25/2018 History of transfusion Hyperlipidemia LDL goal < 100 04/01/2012 NSTEMI (non-ST elevated myocardial infarction) ([facility]) Pulmonary embolus, right ([facility]) 09/25/2013 Status post aortic valve repair 2004 Thoracic aneurysm without mention of rupture Type 2 diabetes mellitus with stage 3 chronic kidney disease, with long-term current use of insulin ([facility]) 06/20/2016 Vitamin D deficiency 01/03/2022 PSH: PAST SURGICAL HISTORY Procedure Laterality Date ABDOMINAL SURGERY HX AMPUTATION METATARSAL+TOE,SINGLE Right 05/25/2018 (more content not included)... [facility] 09-07-2022 Miscellaneous Notes Call to patient. Provided number to schedule- [phone]. Offered to transfer patient to schedule but patient declined to schedule stating he could call later. PAOLA Potter, RN September 07, 2022 1:11 PM Suzanne please let patient know how to proceed with driving evaluation I already put the order in computer documented in this encounter [facility] 09-07-2022 History of Presen t [...] of folllow up after hospitalization in [facility]. he was admitted because of syncopal [...] others Since covid hit they went to [facility] and was staying in the house by [...] Benign-Dr. 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 ([facility]) 05/25/2018 History of transfusion Hyperlipidemia LDL goal < 100 04/01/2012 NSTEMI (non-ST elevated myocardial infarction) ([facility]) Pulmonary embolus, right ([facility]) 09/25/2013 Status post aortic valve repair 2005 Thoracic aneurysm without mention of rupture Type 2 diabetes mellitus with stage 3 chronic kidney disease, with long-term current use of insulin ([facility]) 06/20/2016 Vitamin D deficiency 01/03/2022 PSH: PAST SURGICAL HISTORY Procedure Laterality Date ABDOMINAL SURGERY HX AMPUTATION METATARSAL+TOE,SINGLE Right 05/25/2018 with delayed closure on 05/28/18. Dr. Obregon at [facility] COLONOSCOPY 10/10/2021 repeat in 3 [...] one time a week. blood sugar diagnostic ([employer] ULTRA TEST) test strip Test blood [...] gait ,unsteady Cannot tandem Tamie Kaur M.D. [facility] Neurological [place] Department of Neurology Total time in minutes [...] on at night. documented in this encounter [facility] 08-28-2022 Miscellaneous Notes Phoned patient [...] debra Heller LPN documented in this encounter [facility] 08-16-2022 Miscellaneous Notes Patient has [...] patient. Grecia Bustillo documented in this encounter [facility] 08-14-2022 Miscellaneous Notes Phoned patient [...] or narrative: no documented in this encounter [facility] 08-09-2022 Note HNO ID: [id number] Author: Abdulaziz Caldera MD Service: ? Author [...] 12 months ago. Going to schedule appointment [facility]. 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 Asymtpomatic still on medical management. Has completed his home PT/OT. Echo and stress test at [facility] were negative/normal. Has follow up with Dr. Garcia on 12/03. questioning if they should be seen sooner. BP well controlled with current regimen <130/80. BPH: With use of flomax, patient is getting up once at night to urinate. Has weak stream, but denies straining, incomplete emptying, dysuria, hematuria, incontinence. Followed up with ENT in [place] for chronic frontal sinusitis on CT/MRI going [...] delayed closure on 05/28/18. Dr. Obregon at [facility] COLONOSCOPY 10/10/2021 repeat in 3 [...] 12 months ago. Going to schedule appointment [facility]. 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 Asymtpomatic still on medical management. Has completed his home PT/OT. Echo and stress test at [facility] were negative/normal. Has follow up with Dr. Garcia on 12/03. questioning if they should be seen sooner. BP well controlled with current regimen <130/80. BPH: With use of flomax, patient is getting up once at night to urinate. Has weak stream, but denies straining, incomplete emptying, dysuria, hematuria, incontinence. Followed up with ENT in [place] for chronic frontal sinusitis on CT/MRI going [...] goal < 100 04/01/2012 Pulmonary embolus, right ([facility]) 09/25/2013 Status post aortic valve repair 2005 Thoracic aneurysm without mention of rupture Type 2 diabetes mellitus with stage 3 chronic kidney disease, with long-term current use of insulin ([facility]) 06/20/2016 Vitamin D deficiency 01/03/2022 Previous Surgical History PAST SURGICAL HISTORY Procedure Laterality Date ABDOMINAL SURGERY HX AMPUTATION METATARSAL+TOE,SINGLE Right 05/25/2018 with delayed closure on 05/28/18. Dr. Obregon at [facility] COLONOSCOPY 10/10/2021 repeat in 3 [...] by mouth once daily. blood sugar diagnostic ([employer] ULTRA TEST) test strip Test blood sugar(s) [...] Abs Lymph 1.00 - 4.00 k/uL 1.81 [place]% % 6.9 Abs [place] <0.87 k/uL 0.86 Eosin% % 3.1 Abs [...] neuropathy, with long-term current use of insulin ([facility]) - ICD9: 250.60, 357.2, V58.67, ICD10: E11.40, Z79.4 (primary diagnosis) improved control - Continue current medications - Blood glucose monitoring on a four times a day schedule - Encouraged regular aerobic exercise and weight loss - Follow up in 6 months, sooner should any other issues arise. - Discussed diabetic education issues of shelter diabetic complications, hypoglycemic symptoms, hyperglycemic symptoms, diet, medications- side effects and need for compliance, importance of exercise, use and side effects of insulin, and importance of annual examinations with Opthalmology with patient. - HGB A1C - COMP METABOLIC PANEL - INSULIN ASPART (U-100) 100 UNIT/ML (3 ML) SUBCUTANEOUS PEN - CBC + DIFF 2. Diabetic polyneuropathy associated with type 2 diabetes mellitus ([facility]) - ICD9: 250.60, 357.2, ICD10: E11.42 Controlled on current regimen. 3. NSTEMI (non-ST elevated myocardial infarction) ([facility]) - ICD9: 410.70, ICD10: I21.4 Patient asymptomatic [...] Abdulaziz Caldera MD documented in this encounter [facility] 08-06-2022 Miscellaneous Notes Phoned patient and updated him with provider's message. Patient voiced understanding. I would not recommend a baby ASA for this patient. Pt called to check on refill on baby aspirin. This is not on med list. Pt asking if he should be taking this. Please advise pt. Mila Castro LPN documented in this encounter [facility] 08-06-2022 Note HNO ID: [id number] Author: Arminda Jaimes MD Service: ? Author [...] electronic medical record. documented in this encounter [facility] 07-31-2022 Miscellaneous Notes Spoke with [...] Rebecca Esteban LPN documented in this encounter [facility] 07-27-2022 Miscellaneous Notes [employer] message not read as of 07/27/2022. Called and spoke with patient. Appt rescheduled to 09/07/2022 at 11:00 AM Meghana [place] Due to change in provider's schedule, appt on 08/21/2022 needs rescheduled. Patient notified via [employer] message on 07/05/2022. Meghana [place] documented in this encounter [facility] 07-26-2022 Miscellaneous Notes Thanks. Darlyn, a nurse with [facility] calling to state she has discharged pt [facility]. Pt is doing really well. No call back needed. Thank you. documented in this encounter [facility] 01-11-2023 Miscellaneous Notes Last Office Visit: 07/12/2022 Future Office Visit: 08/09/2022 Requested Prescriptions Pending Prescriptions Disp Refills amLODIPine (NORVASC) 2.5 mg tablet 30 tablet 5 Sig: Take 1 tablet by mouth once daily. Date of Last Labs: 03/02/2022 documented in this encounter [facility] 07-17-2022 Miscellaneous Notes Reviewed and agree. Maverick PT calling from [facility] to report plan of care for patient and PT will visit patient 2 times a week for 3 weeks. PT will work with patient on functional mobility training. Halima Diaz RN documented in this encounter [facility] 07-17-2022 Miscellaneous Notes Reviewed. Barbi from [facility] calling with OT plan of care, one time visit only, patient denies any further OT needs. No call back needed. documented in this encounter [facility] 07-13-2022 Miscellaneous Notes Left detailed message on confidential line Ewa Andino Ma agree Chiki, a nurse with [facility] calling with [facility] Plan of Care for patient: Patient will be seen 1 time per week for 4 weeks for BP monitoring. No call back needed if provider agreeable. Thank you. documented in this encounter [facility] 07-12-2022 Note HNO ID: [id number] Author: Abdulaziz Caldera MD Service: ? Author Type: Physician Type: Progress Notes Filed: 07/17/2022 8:33 AM Note Text: Chief Complaint Patient presents with: Hospital F/U: Admitted 07/09/22 discharged 07/11/22 HPI Richard Roy is a 76 year old male who presents here today for Hospital Discharge Follow up.. 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 Since discharge yesterday, patient has been [...] Benign-Dr. 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 ([facility]) 05/25/2018 History of transfusion Hyperlipidemia LDL goal < 100 04/01/2012 Pulmonary embolus, right ([facility]) 09/25/2013 Status post aortic valve repair 2004 Thoracic aneurysm without mention of rupture Type 2 diabetes mellitus with stage 3 chronic kidney disease, with long-term current use of insulin ([facility]) 06/20/2016 Vitamin D deficiency 01/03/2022 Previous Surgical History PAST SURGICAL HISTORY Procedure Laterality Date ABDOMINAL SURGERY HX AMPUTATION METATARSAL+TOE,SINGLE Right 05/25/2018 with delayed closure on 05/28/18. Dr. Obregon at [facility] COLONOSCOPY 10/10/2021 repeat in 3 [...] Ma Agree and will follow Karly with [facility] called and reports Pt was discharged yesterday and they received a referral for PT/OT/SN. They are going to do their start of care tomorrow, and she was asking if the provider would be willing to follow. documented in this encounter [facility] 07-09-2022 Miscellaneous Notes Last Office Visit: 04/16/2022 Future Office Visit: 09/17/2022 Requested Prescriptions Pending Prescriptions Disp Refills dulaglutide (TRULICITY) 1.5 mg/0.5 mL pen injector 12 Each 3 Sig: Inject 1.5 mg subcutaneously one time a week. Inject once per week. Discard Pen After Date of Last Labs: 03/02/2022 documented in this encounter [facility] 07-03-2022 Note HNO ID: [id number] Author: Arminda Obregon Service: ? Author Type: [...] [facility] 07-03-2022 Note HNO ID: [id number] Author: Marcella Cox RN Service: ? Author Type: Registered Nurse Type: Progress Notes Filed: 07/03/2022 11:17 AM Note Text: Patient presents with: Left Foot - Established Patient, Follow Up, nail care Right Foot - Established Patient, Follow Up, nail care [facility] 07-02-2022 Note HNO ID: [id number] Author: Bobbi Garcia MD Service: ? Author Type: Physician Type: Progress Notes Filed: 07/02/2022 12:42 PM Note Text: [facility] SECTION OF REGIONAL CARDIOLOGY Cardiology ([facility]) [address] [facility] [facility] [id number] OUTPATIENT VISIT DATE 07/02/2022 PRIMARY CARE PHYSICIAN: Abdulaziz Caldera [address] [place] [address] HISTORY OF PRESENT ILLNESS: Mr. Roy is [...] HISTORY: From Last OV with Justina Hadley [facility] 01/01/2022: Richard Roy is a 76 year old male who presents for routine follow up. 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 His accompanies him for his office visit today. They both explain to me he was hospitalized at [facility] for 2 days last week [...] LE swelling. Records have been requested from [facility]. He is unsure of what testing was completed. An echocardiogram was ordered at his last office visit with me. If this was not completed at [facility], I recommend this be completed for further cardiac evaluation. PAST MEDICAL HISTORY Diagnosis Date BPH (benign prostatic hyperplasia) Cholelithiasis 09/25/2013 Chronic neutrophilia Benign-Dr. 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 ([facility]) 05/25/2018 History of transfusion Hyperlipidemia LDL goal < 100 04/01/2012 Pulmonary embolus, right ([facility]) 09/25/2013 Status post aortic valve repair 2005 Thoracic aneurysm without mention of rupture Type 2 diabetes mellitus with stage 3 chronic kidney disease, with long-term current use of insulin ([facility]) 06/20/2016 Vitamin D deficiency 01/03/2022 PAST SURGICAL HISTORY Procedure Laterality Date ABDOMINAL SURGERY HX AMPUTATION METATARSAL+TOE,SINGLE Right 05/25/2018 with delayed closure on 05/28/18. Dr. Obregon at [facility] COLONOSCOPY 10/10/2021 repeat in 3 [...] Tania Heller LPN documented in this encounter [facility] 05-16-2022 Miscellaneous Notes Patient has [...] Mila Castro LPN documented in this encounter [facility] 04-17-2022 History of Presen t [...] of folllow up after hospitalization in [facility]. he was admitted because of syncopal [...] others Since covid hit they went to [facility] and was staying in the house by [...] delayed closure on 05/28/18. Dr. Obregon at [facility] COLONOSCOPY 10/10/2021 repeat in 3 [...] week. Discard Pen After blood sugar diagnostic ([employer] ULTRA TEST) test strip Test blood [...] gait ,unsteady Cannot tandem Tamie Kaur M.D. [facility] [place] Department of Neurology Total time in minutes [...] on at night. documented in this encounter [facility] 04-17-2022 Miscellaneous Notes Reviewed. Behavioral Health Social Work Progress Note Patient identified for [facility] from: PCP Reason for referral: Resources Behavioral Health Resources: Psychology - talk therapy [facility] encounter type: Telephone Encounter Attempts to Outreach: 1 attempt Referral made: Psychology - External Psychology-External referral type: Therapy Reason for external referral: Wait times at [facility] too long Final Disposition: Resources given Patient Discharged?: Yes Patient reported that caregiver was able to meet their needs today?: Yes SW placed a phone call to patient at the request of the PCP. Pt reported he is looking for talk therapy referrals at this time. SW provided the following referrals via phone: [facility] [address], [facility], [facility] [address] *[facility] [address] [address] *counseling [facility] [address] [place] [address] *counseling [facility] [address] [place] [address] FEDERICO Zamudio April 17, 2022 documented in this encounter [facility] 04-16-2022 History of Presen t [...] like referral. Denies SI/HI. DIABETES MELLITUS: Mr. oRy was last seen 6 months ago. Since [...] (HCC) 09/08/2010 Diabetic retinopathy of right eye ([facility]) mild Diverticulosis of colon (without mention of [...] delayed closure on 05/28/18. Dr. Obregon at [facility] COLONOSCOPY 10/10/2021 repeat in 3 [...] week. Discard Pen After blood sugar diagnostic ([employer] ULTRA TEST) test strip Test blood sugar(s) [...] Abs Lymph 1.00 - 4.00 k/uL 1.81 Chariton% % 6.9 Abs Chariton <0.87 k/uL 0.86 Eosin% % 3.1 Abs [...] with long-term current use of insulin ([facility]) - ICD9: 250.40, 585.3, V58.67, ICD10: E11.22, N18.31, Z79.4 (primary diagnosis) Controlled. - Continue current medications - Blood glucose monitoring on a 3 times a day schedule - Encouraged regular aerobic exercise and weight loss - Follow up in 6 months, sooner should any other issues arise. - Discussed diabetic education issues of rodent exterminator diabetic complications, hypoglycemic symptoms, hyperglycemic symptoms, diet, [...] Abdulaziz Caldera MD documented in this encounter [facility] documented in this encounter [facility] History of Present illness Narrative* Roselia Madrigal, WEAVER TIRE CORD.TRUCK SHOP SUPERVISOR - 04/06/2022 9:40 AM EDT 04/06/2022 Patient [...] Benign-Dr. 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 FOR CHOLESTEROL. blood sugar diagnostic ([employer] ULTRA TEST) test strip Test blood [...] SEASONAL QUADRIVALENT HIGH DOSE AGE 65+ - [employer] COVID-19 BIVALENT BOOSTER VACCINE, AGE 12+ YR [...] which included preparing to see the patient, [id number] patient care, completing clinical documentation, obtaining and/or reviewing separately obtained history, performing a medically appropriate examination, and counseling and educating the patient/family/caregiver. documented in this encounterCh[facility]09[facility] Miscellaneous Notes* Telephone Encounter - [...] AM EDT ----- Message from Roselia Madrigal APRN.TRUCK SHOP SUPERVISOR sent at 04/03/2022 2:47 PM EDT ----- Please forward INR to doctor puff ironer Roselia Madrigal APRN.TRUCK SHOP SUPERVISOR documented in this encounterChillic[facility]09-16-[facility] History of Present illness Narrative* [...] Care Merlene Martinez LPN documented in this encounterChillicothe [facility]09-16-2022 Instructions* Patient Instructions* Arminda Obregon [...] (or decreased sensation in your feet) a military communications specialist should always cut your toenails. Be Careful [...] Go to your health care provider or military communications specialist to treat these conditions. documented in this encounterChillicothe [facility]09-09-2022 History of Present illness Narrative* [...] 01/12/22 through 03/15/22 Goals updated on 03/23/2022. [place] in home exercise program. (Met) Patient will [...] Rosa Elena Poon PT documented in this encounterChillicothe [facility] Center09-08-2022 Miscellaneous Notes* Telephone Encounter - Maggy Ibarra Pss - 03/22/2022 1:49 PM EDT Pharmacy verified in [facility] Patient has been identified by [...] advise. Maggy Ibarra Pss documented in this encounterChillicothe [facility]09-02-2022 History of Present illness Narrative* [...] Treatment Time Minutes (timed/untimed): 40 Karen Weber, ADMINISTRATIVE ASSISTANT DATA ENTRY Rosa Elena Poon PT documented in this encounterChillicothe [facility] Center08-29-2022 History of Present illness Narrative* [...] 41 ALISIA Whiting PT documented in this encounterChillicothe [facility] Center08-26-2022 Miscellaneous Notes* Addendum Note - Rosa Elena Poon PT - 03/09/2022 1:18 PM EDTAddended by: ROSA ELENA POON on: 03/09/2022 01:18 PM Modules accepted: Orders documented in this encounterChillicothe [facility] Center08-26-2022 History of Present illness Narrative* [...] 01/12/22 through 03/15/22 Goals updated on 03/09/2022. [place] in home exercise program. (Met) Patient will [...] Patient to be seen for Therapeutic exercise (89462);Neuromuscular re-education (78478);Gait Training (76318);Patient/Family/Caregiver Education PLAN FOR NEXT VISIT: Add bridging [...] Rosa Elena Lemon, PT documented in this encounterChillicothe [facility] Center08-24-2022 Miscellaneous Notes* Telephone Encounter - [...] testing [facility] documented in this encounterChillicothe [facility] Center08-24-2022 Instructions* Patient Instructions* Abdulaziz Caldera MD - 03/07/2022 11:45 AM EDT Please take 2,000 units of vitamin D daily over the counter. documented in this encounterChillicothe [facility] Center08-24-2022 History of Present illness Narrative* Abdulaziz Cadlera MD - 03/07/2022 11:19 AM EDT Chief Complaint Patient presents with: 6 Month Exam ER F/U HPI Richard Roy is a 76 year old male who presents here today for ER Follow Up.. Patient evaluated at [facility] ED on 03/02 for complaint [...] Benign-Dr. 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 ([facility]) 05/25/2018 History of transfusion Hyperlipidemia LDL goal < 100 04/01/2012 Pulmonary embolus, right ([facility]) 09/25/2013 Status post aortic valve repair 2004 Thoracic aneurysm without mention of rupture Type 2 diabetes mellitus with stage 3 chronic kidney disease, with long-term current use of insulin([facility]) 06/20/2016 Vitamin D deficiency 01/03/2022 Previous Surgical History PAST SURGICAL HISTORY Procedure Laterality Date ABDOMINAL SURGERY HX AMPUTATION METATARSAL+TOE,SINGLE Right 05/25/2018 with delayed closure on 05/28/18. Dr. Obregon at [facility] COLONOSCOPY 10/10/2021 repeat in 3 [...] ONCE DAILY. FOR CHOLESTEROL. blood sugar diagnostic ([employer] ULTRA TEST) test strip Test blood [...] Abs Lymph 1.00 - 4.00 k/uL 1.81 Chariton% % 6.9 Abs [place] <0.87 k/uL 0.86 Eosin% % 3.1 Abs [...] PANEL Abdulaziz Caldera MD documented in this encounterChillicothe [facility] Center08-22-2022 History of Present illness Narrative* [...] Rosa Elena Poon PT documented in this encounterChillicothe [facility] Center08-19-2022 History of Present illness Narrative* [...] Rosa Elena Poon PT documented in this encounterChillicothe [facility] Center08-15-2022 History of Present illness Narrative* [...] Rosa Elena Poon PT documented in this encounterChillicothe [facility] Center08-12-2022 History of Present illness Narrative* [...] 43 ALISIA Whiting PT documented in this encounterChillicothe [facility] Center08-03-2022 History of Present illness Narrative* [...] Rosa Elena Poon PT documented in this encounterChillicothe [facility] Center07-29-2022 History of Present illness Narrative* [...] 01/12/22 through 03/15/22 Goals updated on 02/09/2022. [place] in home exercise program. (Met) Patient will [...] Patient to be seen for Therapeutic exercise (39081);Neuromuscular re-education (68438);Gait Training (22711);Patient/Family/Caregiver Education PLAN FOR NEXT VISIT: Continue to [...] Rosa Elena Poon PT documented in this encounterChillicothe [facility] Center07-26-2022 Miscellaneous Notes* Telephone Encounter - [...] patient. Nola Castro Pss documented in this encounterChillicothe Va Medical Center07-22-2022 History of Present illness Narrative* [...] 43 ALISIA Whiting, PT documented in this encounterChillicothe [facility] Center07-21-2022 Miscellaneous Notes* Telephone Encounter - [...] need to notify patient. Eulalia Gaston [facility] documented in this encounterChillicothe Va Medical Center07-19-2022 History of Present illness Narrative* [...] 43 ALISIA Whiting PT documented in this encounterChillicothe [facility] Center07-12-2022 Miscellaneous Notes* Telephone Encounter - [...] you. Rebecca Gonzales RN documented in this encounterChillicothe Va Medical Center07-12-2022 History of Present illness Narrative* [...] 45 ALISIA Whiting PT documented in this encounterChillicothe [facility] Center07-08-2022 Miscellaneous Notes* Telephone Encounter - [...] on driving. Please advise. documented in this encounterChillicothe Va Medical Center07-01-2022 History of Present illness Narrative* [...] of Care: created on 01/12/22 through 03/15/22 [place] in home exercise program. Patient will demonstrate [...] Planned: 16 Planned Treatment Interventions: Therapeutic exercise (00387);Neuromuscular re- education (54130);Gait Training (79178);Patient/Family/Caregiver Education PLAN FOR NEXT VISIT: Review HEP [...] Rosa Elena Poon PT documented in this encounterChillicothe Va Medical Center07-01-2022 Miscellaneous Notes* Telephone Encounter - [...] Pending consult. Please advise documented in this encounterChillicothe Va Medical Center06-29-2022 Miscellaneous Notes* Telephone Encounter - [...] his syncope/collapse. Thank you! documented in this encounterChillicothe Va Medical Center06-29-2022 Miscellaneous Notes* Result QuickNote - Justina Hadley APRN.CNP - 01/10/2022 11:33 AM EDT Please call patient and notify him. Echocardiogram is stable. Valve replacement function is stable.No cardiac structure/function changes to explain his syncope/collapse. Thank you! documented in this encounterChillicothe Va Medical Center06-24-2022 History of Present illness Narrative* [...] medical record. REFERRING PHYSICIAN: Abdulaziz Caldera [address] [address] Accompanied by: Spouse ASSESSMENT: 76 year old [...] of folllow up after hospitalization in [facility]. he was admitted because of syncopal [...] others Since covid hit they went to [facility] and was staying in the house by [...] delayed closure on 05/28/18. Dr. Obregon at [facility] COLONOSCOPY 10/10/2021 repeat in 3 [...] by mouth once daily. blood sugar diagnostic ([employer] ULTRA TEST) test strip Test blood sugar(s) [...] gait ,unsteady Cannot tandem Tamie Kaur M.D. [facility] Department of Neurology January 05, 2022 Total [...] lights on at night. documented in this encounterChillicothe Va Medical Center06-21-2022 Miscellaneous Notes* Telephone Encounter - Justina Martinez LPN - 01/02/2022 8:06 AM EDT I spoke to and informed him of Justina's response to lipid panel results. Patient voiced understanding. Justina Martinez LPN * Telephone Encounter - Justina Martinez LPN - 01/02/2022 7:43 AM EDT ----- Message from Justina Hadley APRN.TRUCK SHOP SUPERVISOR sent at 01/02/2022 7:38 AM EDT ----- Please call patient and notify him cholesterol has good control. Thank you! documented in this encounterChillicothe Va Medical Center06-20-2022 History of Present illness Narrative* Abdulaziz Caldera MD - 01/01/2022 10:20 AM EDT Chief Complaint Patient presents with: Hospital Follow Up: [facility] discharged 12/29/21 HPI Richard Roy is a 76 year old male who presents here today for Hospital Discharge Follow up. Accompanied today by his . Patient admitted to [facility] from 12/27 to 12/29 after presenting to the [facility] ED after being found slumped over his tractor at home earlier in the afteernoon. Had been working outside for unknown period of time. Had only eaten cookies and milk that day. Heat index over 100. Back to baseline at the time of evaluation by hospitalist at [facility]. Found to have leukocytosis at [facility] and elevated lactic acid level. Noted [...] echo since it was not completed at [facility]. No other changes to regimen. [...] kidney disease, with long-term current use of insulin([facility]) 06/20/2016 Previous Surgical History PAST SURGICAL HISTORY Procedure Laterality Date ABDOMINAL SURGERY HX AMPUTATION METATARSAL+TOE,SINGLE Right 05/25/2018 with delayed closure on 05/28/18. Dr. Obregon at [facility] COLONOSCOPY 10/10/2021 repeat in 3 [...] by mouth once daily. blood sugar diagnostic ([employer] ULTRA TEST) test strip Test blood [...] SCRN Abdulaziz Caldera MD documented in this encounterChillicothe Va Medical Center06-20-2022 Instructions* Patient Instructions* Justina Hadley APRN.TRUCK SHOP SUPERVISOR - 01/01/2022 9:05 AM EDT High Blood [...] risk for high blood pressure. Developed by [employer]. Published by [employer]. Copyright 2014 [employer] and/or one of its subsidiaries. All rights reserved. documented in this encounterChillicothe Va Medical Center06-20-2022 History of Present illness Narrative* [...] bothexplain to me he was hospitalized at [facility] for 2 days last week [...] LE swelling. Records have been requested from [facility]. He is unsure of what testing was completed. An echocardiogram was ordered at his last office visit with me.If this was not completed at [facility], I recommend this be completed for further cardiac evaluation. PAST MEDICAL HISTORY Diagnosis Date Cholelithiasis 09/25/2013 Chronic neutrophilia Benign-Dr. 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 Dr. Obregon at [facility] COLONOSCOPY 10/10/2021 repeat in 3 [...] injection (DEFINITY) INTRAVENOUS DIRECTED PRN Justina Hadley, WEAVER TIRE CORD.TRUCK SHOP SUPERVISOR sodium chloride 0.9 % (flush) 10 mL (BD POSIFLUSH) 10 mL INTRAVENOUS DIRECTED PRN Justina Hadley, WEAVER TIRE CORD.TRUCK SHOP SUPERVISOR Review of Systems Constitutional: Negative for chills, [...] MRI of his head CAD -MILD on [facility] 2004 -stress testing 2013 with no obvious [...] 01, 2022, 8:57 AM documented in this encounterChillicothe Va Medical Center06-19-2022 Note. MICRO - Microbiology PROCEDURE: Blood Culture (bacterial) [*1] SOURCE: Blood BODY SITE: COLLECTED DATE/TIME: 12/27/2021 17:43 EDT RECEIVED DATE/TIME: 12/28/2021 14:37 EDT START DATE/TIME: 12/28/2021 14:37 EDT FREE TEXT SOURCE: FINAL REPORTS Final Report [] Verified Date/Time/Personnel: 12/31/2021 07:29 EDT Staphylococcus epidermidis Isolated from anaerobe bottle only. Refer to previous culture for susceptibility. [id number] PRELIMINARY REPORTS Preliminary Report [] Verified Date/Time/Personnel: 12/30/2021 09:39 EDT Staphylococcus epidermidis Isolated from anaerobe bottle only. Refer to previous culture for susceptibility. [id number] Preliminary Report [] Verified Date/Time/Personnel: 12/28/2021 15:59 EDT Culture has been received in lab and is no growth to date. Routine cultures are held for 5 days. STAINS GSANA [] Verified Date/Time/Personnel: 12/29/2021 14:08 EDT Gram Positive Cocci in clusters Performing Locations *1: This test was performed at: [facility], [address] [place] [address], [facility] , [facility], [facility] ([place])12-31-2021 Note. MICRO - Microbiology PROCEDURE: Blood [...] Locations *1: This test was performed at: [facility], [address] [place] [address], [id number] , [facility], [facility] ([place])12-27-2021 SARS-CoV-2 (COVID-19) RNA ANGELY+probe Ql (Nph)Positive 2 *ABN* (12/27/21 5:43 PM)AO Auto Urine SSComment on above:Result Comment: positive covid cvrb s. tona Evaluation + Plan note Diagnostic Tests Pending * Urinalysis 12/27/21 * Blood Culture (bacterial) 12/27/21 * Blood Culture (bacterial) 12/27/21 [facility] 06-02-2022 History of Present illness Narrative* Abdulaziz Caldera MD - 12/14/2021 3:13 PM EDT Chief Complaint Patient presents with: Covid Follow Up HPI Richard Roy is a 76 year old male who presents here today for Above Complaints.. Patient positive for COVID in the [facility] ER last week on 12/06. [...] Benign-Dr. 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 ([facility]) 05/25/2018 History of transfusion Hyperlipidemia LDL goal < 100 04/01/2012 Pulmonary embolus, right ([facility]) 09/25/2013 Status post aortic valve repair 2005 Thoracic aneurysm without mention of rupture Type 2 diabetes mellitus with stage 3 chronic kidney disease, with long-term current use of insulin([facility]) 06/20/2016 Previous Surgical History PAST SURGICAL HISTORY Procedure Laterality Date ABDOMINAL SURGERY HX AMPUTATION METATARSAL+TOE,SINGLE Right 05/25/2018 with delayed closure on 05/28/18. Dr. Obregon at [facility] COLONOSCOPY 10/10/2021 repeat in 3 [...] by mouth once daily. blood sugar diagnostic ([employer] ULTRA TEST) test strip Test blood sugar(s) [...] detail. Abdulaziz Caldera MD documented in this encounterChillicothe [facility] Center05-27-2022 History of Present illness Narrative* [...] today for Above Complaints.. Patient evaluated at [facility] ER on 12/06 for complaint of generalized weakness, cough, and feeling off balance and developed cough which started on 12/04. Denied other COVID symptoms at that time. Lab workup in the ER was unremarkable aside from positive COVID test and INR of 3.3. UA unremarkable. CXR showed some ill defined densities in RLL which was likely 2/2 COVID infection. Agate to be well enough and discharged home [...] of first toe of right foot ([facility]) 05/25/2018 History of transfusion Hyperlipidemia LDL goal < 100 04/01/2012 Pulmonary embolus, right ([facility]) 09/25/2013 Status post aortic valve repair 2005 Thoracic aneurysm without mention of rupture Type 2 diabetes mellitus with stage 3 chronic kidney disease, with long-term current use of insulin([facility]) 06/20/2016 Previous Surgical History PAST SURGICAL HISTORY Procedure Laterality Date ABDOMINAL SURGERY HX AMPUTATION METATARSAL+TOE,SINGLE Right 05/25/2018 with delayed closure on 05/28/18. Dr. Obregon at [facility] COLONOSCOPY 10/10/2021 repeat in 3 [...] by mouth once daily. blood sugar diagnostic ([employer] ULTRA TEST) test strip Test blood [...] these interactions. Not interested in driving to [facility] for IV ab. Since his symptoms are mild, he would prefer to rest at home. Discussed risks and benefits of treatment and that he is high risk for severe infection. Red flags for re-assessment reviewed with patient in detail. I spent a total of 25 minutes on the date of the service which included preparing to see the patient, [id number] patient care, completing clinical documentation, obtaining and/or reviewing separately obtained history, performing a medically appropriate examination, counseling and educating the pat ient/family/caregiver and ordering medications, tests, or procedures. Abdulaziz Caldera MD documented in this encounter[facility]27[facility] Miscellaneous Notes* Telephone Encounter - [...] with one of our providers or with [facility] online. * Telephone Encounter - Rosa Elena Martinez Pss - 12/08/2021 2:16 PM EDT Patient called stating he was at [facility] ER on 12/06. Tested positive for covid. Patient was informed tocontact the office within 5 days to inform. Please advise patient when he can be seen in office. documented in this encounterCh[facility]ic[facility]05-09-2022 Miscellaneous Notes* Telephone Encounter - Eulalia Gaston [facility] - 11/20/2021 9:49 AM EDT Patient has been identified by name and date of : Yes Pending Prescriptions Disp Refills METFORMIN ER 500 MG 24 HR TABLET,EXTENDED RELEASE Sig: Take 1 tablet by mouth daily with breakfast. NUHA: No OMAR-09/06/21 Labs-08/30/21 NOV-03/07/22 RX INSTRUCTIONS: Patient aware RX will be sent to pharmacy. No need to notify patient. Eulalia [facility] documented in this encounterChillicothe [facility]04-11-2022 Instructions* Patient Instructions* Marcella Park PA-C - 10/23/2021 1:25 PM EDT -Recommend daily fiber supplement and plenty of fluids The following instructions are important for you related to your office visit today with the [facility]. INSTRUCTIONS FOR DIVERTICULA I [...] you should contact our office immediately @ [phone] and ask to be transferred to the General Surgery department. The following instructions are important for you related to your office visit today with the [facility]. INSTRUCTIONS FOLLOWING A POLYP [...] you should contact our office immediately @ [phone] and ask to be transferred to the General Surgery department. documented in this encounterChillicothe [facility] Center04-11-2022 History of Present illness Narrative* Marcella Park PA-C - 10/23/2021 1:09 PM EDT FOLLOW UP VISIT - ENDOSCOPY NAME: Richard Bonilla [facility] NO.: [id number] DATE OF SERVICE: 10/23/2021 : 1945 REFERRING [...] which included preparing to see the patient, [id number] patient care, completing clinical documentation, obtaining and/or reviewing separately obtained history, counseling and educating the patient/family/caregiver, communicating with other HCPs (not separately reported), independently interpreting results (not separately reported) and communicating results to the patient/family/caregiver. Marcella Park PA-C documented in this encounterChillicothe [facility] Center03-29-2022 Nurse Note* Caroline Larkin RN [...] answered. Caroline Larkin RN documented in this encounterChillicothe [facility] Center03-29-2022 History and physical note * [...] Benign-Dr. 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 Dr. Obregon at [facility] COLONOSCOPY FLX DX W/COLLJ SPEC [...] by mouth once daily. blood sugar diagnostic ([employer] ULTRA TEST) test strip Test blood sugar(s) [...] patient was offered a surgery[facility]. I have counseled the [...] diagnosis) Marcella Park PA-C documented in this encounterChillicothe [facility] Center03-24-2022 Miscellaneous Notes* Telephone Encounter - [...] send both by 10/06/21, so he can pick up man. Patient aware RX will be sent to pharmacy. No need to notify patient. Violette Lockhart documented in this encounterChillicothe [facility] Center03-23-2022 Miscellaneous Notes* Telephone Encounter - [...] advise, Halima Diaz RN documented in this encounterChillicothe [facility] Center02-02-2022 Miscellaneous Notes* Telephone Encounter - Garland Vicente - 08/16/2021 9:36 AM EST 10-10-2021 [facility] documented in this encounterChillicothe Va [facility] Center01-13-2022 NoteHNO ID: [id number] Author: REY Burt Service: Radiology Author Type: Network Program Manager Type: Progress Notes Filed: 07/27/2021 10:50 AM [...] Roy DATE: July 27, 2021 TIME: 10:49 [id number] History of Past illness Narrative* Problem Noted [...] of this encounter (statuses as of 10/04/2021) [facility] of [facility] illness Narrative* [...] of this encounter (statuses as of 10/05/2021) [facility] Narrative* [...] of this encounter (statuses as of 10/11/2021) [facility] Narrative* [...] of this encounter (statuses as of 10/16/2021) [facility] Narrative* [...] of this encounter (statuses as of 10/27/2021) [facility] Narrative* [...] of this encounter (statuses as of 11/20/2021) [facility] Narrative* [...] of this encounter (statuses as of 12/12/2021) [facility] Narrative* [...] of this encounter (statuses as of 12/13/2021) [facility] Narrative* [...] of this encounter (statuses as of 12/14/2021) [facility] Narrative* [...] of this encounter (statuses as of 01/01/2022) [facility] Narrative* [...] of this encounter (statuses as of 01/02/2022) [facility] Narrative* [...] of this encounter (statuses as of 01/02/2022) [facility] Narrative* [...] of this encounter (statuses as of 01/06/2022) [facility] Narrative* [...] of this encounter (statuses as of 01/10/2022) [facility] Narrative* [...] of this encounter (statuses as of 01/11/2022) [facility] Narrative* [...] of this encounter (statuses as of 01/12/2022) [facility] Narrative* [...] of this encounter (statuses as of 01/12/2022) [facility] Narrative* [...] of this encounter (statuses as of 01/19/2022) [facility] Narrative* [...] of this encounter (statuses as of 01/23/2022) [facility] Narrative* [...] of this encounter (statuses as of 01/25/2022) [facility] Narrative* [...] of this encounter (statuses as of 01/30/2022) [facility] Narrative* [...] of this encounter (statuses as of 02/01/2022) [facility] Narrative* [...] of this encounter (statuses as of 02/02/2022) [facility] Narrative* [...] of this encounter (statuses as of 02/02/2022) [facility] Narrative* [...] of this encounter (statuses as of 02/06/2022) [facility] Narrative* [...] of this encounter (statuses as of 02/09/2022) [facility] Narrative* [...] of this encounter (statuses as of 02/14/2022) [facility] N[facility]ative* [...] of this encounter (statuses as of 02/26/2022) [facility]* [...] of this encounter (statuses as of 03/02/2022) [facility]* [...] of this encounter (statuses as of 03/05/2022) [facility] N[facility]* [...] of this encounter (statuses as of 03/07/2022) [facility]* [...] of this encounter (statuses as of 03/08/2022) [facility] N[facility]* [...] of this encounter (statuses as of 03/09/2022) [facility] N[facility]* [...] of this encounter (statuses as of 03/12/2022) [facility] Narr[facility]* [...] of this encounter (statuses as of 03/16/2022) [facility] N[facility]* [...] of this encounter (statuses as of 03/23/2022) [facility]* [...] of this encounter (statuses as of 04/03/2022) [facility] N[facility]* [...] of this encounter (statuses as of 04/04/2022) [facility]* [...] of this encounter (statuses as of 04/06/2022) [facility]* [...] of this encounter (statuses as of 04/17/2022) [facility]* [...] of this encounter (statuses as of 04/17/2022) [facility]* [...] of this encounter (statuses as of 04/19/2022) [facility]* [...] of this encounter (statuses as of 05/16/2022) [facility]* [...] of this encounter (statuses as of 06/25/2022) [facility]* [...] of this encounter (statuses as of 07/14/2022) [facility]* [...] of this encounter (statuses as of 07/15/2022) [facility]* [...] of this encounter (statuses as of 07/18/2022) [facility]* [...] of this encounter (statuses as of 07/18/2022) [facility]* [...] of this encounter (statuses as of 07/19/2022) [facility]* [...] of this encounter (statuses as of 07/20/2022) [facility]* [...] of this encounter (statuses as of 07/25/2022) [facility]* [...] of this encounter (statuses as of 07/26/2022) [facility]* [...] of this encounter (statuses as of 07/27/2022) [facility]* [...] of this encounter (statuses as of 07/31/2022) [facility]* [...] of this encounter (statuses as of 08/06/2022) [facility]* [...] of this encounter (statuses as of 08/07/2022) [address] History of Past illness Narrative* Problem [...] of this encounter (statuses as of 08/09/2022) [address] History of Past illness Narrative* Problem [...] of this encounter (statuses as of 08/14/2022) [facility]* [...] of this encounter (statuses as of 08/16/2022) [facility]* [...] of this encounter (statuses as of 08/28/2022) [facility]* [...] of this encounter (statuses as of 09/07/2022) [facility]* [...] of this encounter (statuses as of 09/09/2022) [facility]* [...] of this encounter (statuses as of 09/25/2022) [facility]* [...] of this encounter (statuses as of 10/23/2022) [facility]* [...] of this encounter (statuses as of 11/20/2022) [facility]* [...] of this encounter (statuses as of 11/20/2022) [facility]* [...] of this encounter (statuses as of 12/13/2022) [facility]* [...] of this encounter (statuses as of 12/14/2022) [facility]* [...] of this encounter (statuses as of 12/18/2022) [facility]* [...] of this encounter (statuses as of 12/25/2022) [facility]* [...] of this encounter (statuses as of 12/27/2022) [facility]* [...] of this encounter (statuses as of 12/31/2022) [facility]* [...] of this encounter (statuses as of 01/03/2023) [facility]* [...] of this encounter (statuses as of 01/04/2023) [facility]* [...] of this encounter (statuses as of 01/04/2023) [facility]* [...] of this encounter (statuses as of 01/25/2023) [facility]* [...] of this encounter (statuses as of 01/29/2023) [facility] note* Diagnosis Type 2 diabetes mellitus with diabetic neuropathy, with long-term current use of insulin (HCC) Status post aortic valve repair Other postprocedural status Chronic anticoagulation Long-term (current) use of anticoagulants documented [facility] this encounter [facility] Diagnosis Colon cancer screening [...] Diagnosis COVID-19- Primary [facility] Diagnosis Hyperlipidemia with target LDL less than 100- Primary Other and unspecified hyperlipidemia Primary hypertension Unspecified essential hypertension Thoracic aortic aneurysm without rupture (HCC) Thoracic aneurysm without mention of rupture Coronary artery disease involving [place] coronary artery of [place] heart without angina pectoris Syncope, unspecified syncope type Obesity, Class II, BMI 35-39.9 Obesity, unspecified [facility]* Diagnosis Syncope and collapse- Primary Altered mental status, unspecified altered mental status type Urinary incontinence, unspecified type Benign prostatic hyperplasia with nocturia Nocturia Vitamin D deficiency, unspecified Wound of left lower extremity, initial encounter Encounter for screening for malignant neoplasm of prostate Special screening for malignant neoplasm of prostate [facility] Diagnosis Abnormality of gait due to impairment of balance- Primary Altered mental status, unspecified altered mental status type [facility]* Diagnosis Chronic anticoagulation Long-term (current) use of anticoagulants Thoracic aortic aneurysm without rupture (HCC) Thoracic aneurysm without mention of rupture Status post aortic valve repair Other postprocedural status [facility]* Diagnosis Type 2 diabetes mellitus with diabetic neuropathy, with long-term current use of insulin (HCC)- Primary [facility]* Diagnosis Abnormality of gait due [...] vitamin D deficiency [facility]* Diagnosis Type 2 diabetes mellitus with stage 3 chronic kidney disease, with long-term current use of insulin (HCC) [facility] Diagnosis Abnormality of gait due to impairment of balance- Primary [facility] Diagnosis Type 2 diabetes mellitus with diabetic neuropathy, with long-term current use of insulin ([facility]) [facility] Diagnosis Abnormality of gait due [...] Abnormal coagulation profile ANTHONY (acute kidney injury) ([facility]) Acute kidney failure, unspecified [facility] Diagnosis Abnormality of gait due [...] associated with type 2 diabetes mellitus ([facility]) [facility] Diagnosis Generalized weakness- Primary Other malaise and fatigue Encounter for immunization Need for other specified prophylactic vaccination against single bacterial disease Mild depression Depressive disorder, not elsewhere classified [facility] Diagnosis Generalized anxiety disorder- Primary [...] mellitus (HCC) NSTEMI (non-ST elevated myocardial infarction) ([facility]) Acute myocardial infarction, subendocardial infarction, episode of [...] with long-term current use of insulin ([facility]) 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, macular edema presence unspecified ([facility]) [facility] Diagnosis Driving safety issue- Primary Other specified personal history presenting hazards to health [facility] Diagnosis Onychomycosis- Primary Dermatophytosis of nail Pain in toe of left foot Pain in limb Amputated toe of right foot ([facility]) Diabetic polyneuropathy associated with type 2 diabetes mellitus ([facility]) [facility] Diagnosis Spinal stenosis, lumbar region, without neurogenic claudication- Primary Primary osteoarthritis of both knees Primary localized osteoarthrosis, lower leg [facility] Diagnosis Spinal stenosis, lumbar region, without neurogenic claudication- Primary Primary osteoarthritis of both knees Primary localized osteoarthrosis, lower leg [facility] Diagnosis Spinal stenosis, lumbar region, without neurogenic claudication- Primary Primary osteoarthritis of both knees Primary localized osteoarthrosis, lower leg [facility] Diagnosis Spinal stenosis, lumbar region, without neurogenic claudication- Primary Primary osteoarthritis of both knees Primary localized osteoarthrosis, lower leg [facility]* Diagnosis Spinal stenosis, lumbar region, without neurogenic claudication- Primary Primary osteoarthritis of both knees Primary localized osteoarthrosis, lower leg [facility]* Diagnosis Spinal stenosis, lumbar region, without neurogenic claudication- Primary Primary osteoarthritis of both knees Primary localized osteoarthrosis, lower leg [facility] Narrative No data available for this section [facility] Hospital Discharge instructions No data available for this section [facility] Progress note No data available for this section [facility] Reason for referral (narrative)* Outpatient Procedure (Routine) - Closed Specialty Diagnoses / Procedures Referred By Contac t Referred To [facility] Diagnoses Colon cancer screening Procedures COLONOSCOPY SCREENING COLONOSCOPY FLX DX W/COLLJ SPEC WHEN PFMarcella Cho PA-C [address] [place] [address] [facility] [place] [address] [id number] Referral ID Status Reason Start Date Expiration Date V isits Requested Visits Authorized [id number] Closed Auto-Generate d Referral 08/16/2021 08/16/2022 1 1 [facility] for referral (narrative)* Outpatient Procedure (Routine) - Closed Specialty Diagnoses / Procedures Referred By Contac t Referred To Contact [facility] [place] Diagnoses Colon cancer screening Procedures COLONOSCOPY SCREENING COLONOSCOPY FLX DX W/COLLJ SPEC WHEN Marcella Alatorre PA-C [address] [place] [address] [facility] [place] [address] [place] [id number] Referral ID Status Reason Start Date Expiration Date V isits Requested Visits Authorized [id number] Closed Auto-Generate d Referral 08/16/2021 08/16/2022 1 1 [facility] for visit Narrative* Outpatient Procedure (Routine) - Closed Specialty Diagnoses / Procedures Referred By Contac t Referred To Contact [facility] Diagnoses Colon cancer screening Procedures COLONOSCOPY SCREENING COLONOSCOPY FLX DX W/COLLJ SPEC WHEN PFMarcella Cho PA-C [address] [place] [address] [facility] [place] [address] [place] [id number] Referral ID Status Reason Start Date Expiration Date V isits Requested Visits Authorized [id number] Closed Auto-Generate d Referral 08/16/2021 08/16/2022 1 1 [facility]* Outpatient Procedure (Routine) - Closed Specialty Diagnoses / Procedures Referred By Linn carrillo Ref[facility] Diagnoses Chronic anticoagulation Thoracic aortic aneurysm without rupture (HCC) Status post aortic valve repair Procedures ECHO TTE W/DOPPLER, COMPLETE Justina Hadley, WEAVER [employer] [address] [place] [address] [facility] [address] [address] Referral ID Status Reason Start Date Expiration Date V isits Requested Visits Authorized [id number] Closed Auto-Generate d Referral 07/03/2021 07/03/2022 1 1 [facility] Advance Directives No Advanced Directives Records FoundDocuments on File Type Date Recorded 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 Advance Directive(s) 09/12/2021 7:14 AM Documents on File Type Date Recorded 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 Advance Directive(s) 09/12/2021 7:14 AM [...] Diagnoses Driving safety issue Procedures CONSULT TO MATERIAL HANDLING SUPERVISOR OCCUPATIONAL THERAPY EVAL HIGH COMPLEX 60 MINS Tamie Kaur MD [address] [place] [address] [facility] [place] [address] [place] [id number] Referral ID Status Reason Start Date Expiration Date Visits Requested Visits Authorized [id number] Authorized PCP Requested Referral Auto-Generate d Referral 09/07/2022 09/07/2023 99 99 Specialty Diagnoses / Procedures Referred By Contac t Referred To Contact [facility] Diagnoses Polyneuropathy Procedures CONSULT TO PHYSICAL THERAPY PHYSICAL THERAPY EVALUATION HIGH COMPLEX 45 MINS Tamie Kaur MD [address] [place] [address] [facility] [address] [address] Referral ID Status Reason Start Date Expiration Date Visits Requested Visits Authorized [id number] Authorized PCP Requested Referral Auto-Generate d Referral 04/17/2022 04/17/2023 99 99 Specialty Diagnoses / Procedures Referred By Contac t Referred To Contact Psychology Diagnoses Generalized anxiety disorder Procedures CONSULT TO PSYCHOLOGY OFFICE/OUTPATIENT [facility] 60-74 MINUTES Tamie Kaur MD [address] [place] [id number] Referral ID Status Reason Start Date Expiration Date Visits Requested Visits Authorized [id number] Pending Review PCP Requested Referral 04/17/2022 04/17/2023 1 1 Specialty Diagnoses / Procedures Referred By Contac t Referred To Contact Podiatry Diagnoses Type 2 diabetes mellitus with diabetic neuropathy, with long-term current use of insulin (HCC) Procedures CONSULT TO PODIATRY OFFICE/OUTPATIENT [facility] 60-74 MINUTES PodlogRoselia hernandez APRN.[employer] SUPERVISOR [address] [place] [address] Referral ID Status Reason Start Date Expiration Date Visits Requested Visits Authorized [id number] Authorized PCP Requested Referral 01/12/2022 01/11/2023 1 1 Specialty Diagnoses / Procedures Referred By Contac t Referred To Contact [facility] Diagnoses Altered mental status, unspecified altered mental status type Procedures CONSULT TO SPEECH THERAPY OFFICE/OUTPATIENT [facility] 60-74 MINUTES Tamie Kaur MD [address] [place] [phone] [facility] [address] [address] Referral ID Status Reason Start Date Expiration Date Visits Requested Visits Authorized [id number] Authorized Auto-Generat ed Referral 01/05/2022 01/05/2023 99 99 Specialty Diagnoses / Procedures Referred By Contac t Referred To Contact [facility] Diagnoses Abnormality of gait due to impairment of balance Procedures CONSULT TO PHYSICAL THERAPY PHYSICAL THERAPY EVALUATION HIGH COMPLEX 45 MINS Tamie Kaur MD [address] [place] [address] [facility] [place] [address] Referral ID Status Reason Start Date Expiration Date Visits Requested Visits Authorized [id number] Authorized PCP Requested Referral Auto-Generate d Referral 01/05/2022 01/05/2023 99 99 Specialty Diagnoses / Procedures Referred By Contac t Referred To Contact [facility] Diagnoses Altered mental status, unspecified altered mental status type Procedures EPIL EEG ROUTINE ELECTROENCEPHALOGRAM REC COMA/SLEEP ONLY Tamie Kaur MD [address] [place] [address] [place] [address] Referral ID Status Reason Start Date Expiration Date Visits Requested Visits Authorized [id number] Authorized Auto-Generat ed Referral 01/05/2022 01/05/2023 1 1 Specialty Diagnoses / Procedures Referred By Contac t Referred To Contact Neurology Diagnoses Altered mental status, unspecified altered mental status type Procedures CONSULT TO NEUROLOGY OFFICE/OUTPATIENT [facility] MDM 60-74 MINUTES Abdulaziz Caldera MD [address] [place] [address] Referral ID Status Reason Start Date Expiration Date Visits Requested Visits Authorized [id number] Authorized PCP Requested Referral 01/01/2022 01/01/2023 1 [...] or prosecute any alcohol or drug abuse patient.[facility] the event this information is protected by the Federal Confidentiality of Alcohol and Drug Abuse Patient Records regulations: The Federal rules restrict any use of the information to criminally investigate or prosecute any alcohol or drug abuse patient.[facility] the event this information is protected by the Federal Confidentiality of Alcohol and Drug Abuse Patient Records regulations: The Federal rules restrict any use of the information to criminally investigate or prosecute any alcohol or drug abuse patient.[facility] Center[facility] the event this information is protected by the Federal Confidentiality of Alcohol and Drug Abuse Patient Records regulations: The Federal rules restrict any use of the information to criminally investigate or prosecute any alcohol or drug abuse patient.[facility] CenterIn the event this information is protected by the Federal Confidentiality of Alcohol and Drug Abuse Patient Records regulations: The Federal rules restrict any use of the information to criminally investigate or prosecute any alcohol or drug abuse patient.[facility] CenterIn the event this information is protected by the Federal Confidentiality of Alcohol and Drug Abuse Patient Records regulations: The Federal rules restrict any use of the information to criminally investigate or prosecute any alcohol or drug abuse patient.[facility] CenterIn the event this information is protected by the Federal Confidentiality of Alcohol and Drug Abuse Patient Records regulations: The Federal rules restrict any use of the information to criminally investigate or prosecute any alcohol or drug abuse patient.[facility] CenterIn the event this information is protected by the Federal Confidentiality of Alcohol and Drug Abuse Patient Records regulations: The Federal rules restrict any use of the information to criminally investigate or prosecute any alcohol or drug abuse patient.[facility] CenterIn the event this information is protected by the Federal Confidentiality of Alcohol and Drug Abuse Patient Records regulations: The Federal rules restrict any use of the information to criminally investigate or prosecute any alcohol or drug abuse patient.[facility] CenterIn the event this information is protected by the Federal Confidentiality of Alcohol and Drug Abuse Patient Records regulations: The Federal rules restrict any use of the information to criminally investigate or prosecute any alcohol or drug abuse patient.[facility] CenterIn the event this information is protected by the Federal Confidentiality of Alcohol and Drug Abuse Patient Records regulations: The Federal rules restrict any use of the information to criminally investigate or prosecute any alcohol or drug abuse patient.[facility] CenterIn the event this information is protected by the Federal Confidentiality of Alcohol and Drug Abuse Patient Records regulations: The Federal rules restrict any use of the information to criminally investigate or prosecute any alcohol or drug abuse patient.[facility] CenterIn the event this information is protected by the Federal Confidentiality of Alcohol and Drug Abuse Patient Records regulations: The Federal rules restrict any use of the information to criminally investigate or prosecute any alcohol or drug abuse patient.[facility] CenterIn the event this information is protected by the Federal Confidentiality of Alcohol and Drug Abuse Patient Records regulations: The Federal rules restrict any use of the information to criminally investigate or prosecute any alcohol or drug abuse patient.[facility] CenterIn the event this information is protected by the Federal Confidentiality of Alcohol and Drug Abuse Patient Records regulations: The Federal rules restrict any use of the information to criminally investigate or prosecute any alcohol or drug abuse patient.[facility] CenterIn the event this information is protected by the Federal Confidentiality of Alcohol and Drug Abuse Patient Records regulations: The Federal rules restrict any use of the information to criminally investigate or prosecute any alcohol or drug abuse patient.[facility] CenterIn the event this information is protected by the Federal Confidentiality of Alcohol and Drug Abuse Patient Records regulations: The Federal rules restrict any use of the information to criminally investigate or prosecute any alcohol or drug abuse patient.[facility] CenterIn the event this information is protected by the Federal Confidentiality of Alcohol and Drug Abuse Patient Records regulations: The Federal rules restrict any use of the information to criminally investigate or prosecute any alcohol or drug abuse patient.[facility] CenterIn the event this information is protected by the Federal Confidentiality of Alcohol and Drug Abuse Patient Records regulations: The Federal rules restrict any use of the information to criminally investigate or prosecute any alcohol or drug abuse patient.[facility] CenterIn the event this information is protected by the Federal Confidentiality of Alcohol and Drug Abuse Patient Records regulations: The Federal rules restrict any use of the information to criminally investigate or prosecute any alcohol or drug abuse patient.[facility] CenterIn the event this information is protected by the Federal Confidentiality of Alcohol and Drug Abuse Patient Records regulations: The Federal rules restrict any use of the information to criminally investigate or prosecute any alcohol or drug abuse patient.[facility] CenterIn the event this information is protected by the Federal Confidentiality of Alcohol and Drug Abuse Patient Records regulations: The Federal rules restrict any use of the information to criminally investigate or prosecute any alcohol or drug abuse patient.[facility] CenterIn the event this information is protected by the Federal Confidentiality of Alcohol and Drug Abuse Patient Records regulations: The Federal rules restrict any use of the information to criminally investigate or prosecute any alcohol or drug abuse patient.[facility] CenterIn the event this information is protected by the Federal Confidentiality of Alcohol and Drug Abuse Patient Records regulations: The Federal rules restrict any use of the information to criminally investigate or prosecute any alcohol or drug abuse patient.[facility] CenterIn the event this information is protected by the Federal Confidentiality of Alcohol and Drug Abuse Patient Records regulations: The Federal rules restrict any use of the information to criminally investigate or prosecute any alcohol or drug abuse patient.[facility] CenterIn the event this information is protected by the Federal Confidentiality of Alcohol and Drug Abuse Patient Records regulations: The Federal rules restrict any use of the information to criminally investigate or prosecute any alcohol or drug abuse patient.[facility] CenterIn the event this information is protected by the Federal Confidentiality of Alcohol and Drug Abuse Patient Records regulations: The Federal rules restrict any use of the information to criminally investigate or prosecute any alcohol or drug abuse patient.[facility] CenterIn the event this information is protected by the Federal Confidentiality of Alcohol and Drug Abuse Patient Records regulations: The Federal rules restrict any use of the information to criminally investigate or prosecute any alcohol or drug abuse patient.[facility] CenterIn the event this information is protected by the Federal Confidentiality of Alcohol and Drug Abuse Patient Records regulations: The Federal rules restrict any use of the information to criminally investigate or prosecute any alcohol or drug abuse patient.[facility] CenterIn the event this information is protected by the Federal Confidentiality of Alcohol and Drug Abuse Patient Records regulations: The Federal rules restrict any use of the information to criminally investigate or prosecute any alcohol or drug abuse patient.[facility] CenterIn the event this information is protected by the Federal Confidentiality of Alcohol and Drug Abuse Patient Records regulations: The Federal rules restrict any use of the information to criminally investigate or prosecute any alcohol or drug abuse patient.[facility] CenterIn the event this information is protected by the Federal Confidentiality of Alcohol and Drug Abuse Patient Records regulations: The Federal rules restrict any use of the information to criminally investigate or prosecute any alcohol or drug abuse patient.[facility] CenterIn the event this information is protected by the Federal Confidentiality of Alcohol and Drug Abuse Patient Records regulations: The Federal rules restrict any use of the information to criminally investigate or prosecute any alcohol or drug abuse patient.[facility] CenterIn the event this information is protected by the Federal Confidentiality of Alcohol and Drug Abuse Patient Records regulations: The Federal rules restrict any use of the information to criminally investigate or prosecute any alcohol or drug abuse patient.[facility] CenterIn the event this information is protected by the Federal Confidentiality of Alcohol and Drug Abuse Patient Records regulations: The Federal rules restrict any use of the information to criminally investigate or prosecute any alcohol or drug abuse patient.[facility] CenterIn the event this information is protected by the Federal Confidentiality of Alcohol and Drug Abuse Patient Records regulations: The Federal rules restrict any use of the information to criminally investigate or prosecute any alcohol or drug abuse patient.[facility] CenterIn the event this information is protected by the Federal Confidentiality of Alcohol and Drug Abuse Patient Records regulations: The Federal rules restrict any use of the information to criminally investigate or prosecute any alcohol or drug abuse patient.[facility] CenterIn the event this information is protected by the Federal Confidentiality of Alcohol and Drug Abuse Patient Records regulations: The Federal rules restrict any use of the information to criminally investigate or prosecute any alcohol or drug abuse patient.[facility] CenterIn the event this information is protected by the Federal Confidentiality of Alcohol and Drug Abuse Patient Records regulations: The Federal rules restrict any use of the information to criminally investigate or prosecute any alcohol or drug abuse patient.[facility] CenterIn the event this information is protected by the Federal Confidentiality of Alcohol and Drug Abuse Patient Records regulations: The Federal rules restrict any use of the information to criminally investigate or prosecute any alcohol or drug abuse patient.[facility] CenterIn the event this information is protected by the Federal Confidentiality of Alcohol and Drug Abuse Patient Records regulations: The Federal rules restrict any use of the information to criminally investigate or prosecute any alcohol or drug abuse patient.[facility] CenterIn the event this information is protected by the Federal Confidentiality of Alcohol and Drug Abuse Patient Records regulations: The Federal rules restrict any use of the information to criminally investigate or prosecute any alcohol or drug abuse patient.[facility] CenterIn the event this information is protected by the Federal Confidentiality of Alcohol and Drug Abuse Patient Records regulations: The Federal rules restrict any use of the information to criminally investigate or prosecute any alcohol or drug abuse patient.[facility] CenterIn the event this information is protected by the Federal Confidentiality of Alcohol and Drug Abuse Patient Records regulations: The Federal rules restrict any use of the information to criminally investigate or prosecute any alcohol or drug abuse patient.[facility] CenterIn the event this information is protected by the Federal Confidentiality of Alcohol and Drug Abuse Patient Records regulations: The Federal rules restrict any use of the information to criminally investigate or prosecute any alcohol or drug abuse patient.[facility] CenterIn the event this information is protected by the Federal Confidentiality of Alcohol and Drug Abuse Patient Records regulations: The Federal rules restrict any use of the information to criminally investigate or prosecute any alcohol or drug abuse patient.[facility] CenterIn the event this information is protected by the Federal Confidentiality of Alcohol and Drug Abuse Patient Records regulations: The Federal rules restrict any use of the information to criminally investigate or prosecute any alcohol or drug abuse patient.[facility] CenterIn the event this information is protected by the Federal Confidentiality of Alcohol and Drug Abuse Patient Records regulations: The Federal rules restrict any use of the information to criminally investigate or prosecute any alcohol or drug abuse patient.[facility] CenterIn the event this information is protected by the Federal Confidentiality of Alcohol and Drug Abuse Patient Records regulations: The Federal rules restrict any use of the information to criminally investigate or prosecute any alcohol or drug abuse patient.[facility] CenterIn the event this information is protected by the Federal Confidentiality of Alcohol and Drug Abuse Patient Records regulations: The Federal rules restrict any use of the information to criminally investigate or prosecute any alcohol or drug abuse patient.[facility] CenterIn the event this information is protected by the Federal Confidentiality of Alcohol and Drug Abuse Patient Records regulations: The Federal rules restrict any use of the information to criminally investigate or prosecute any alcohol or drug abuse patient.[facility] CenterIn the event this information is protected by the Federal Confidentiality of Alcohol and Drug Abuse Patient Records regulations: The Federal rules restrict any use of the information to criminally investigate or prosecute any alcohol or drug abuse patient.[facility] CenterIn the event this information is protected by the Federal Confidentiality of Alcohol and Drug Abuse Patient Records regulations: The Federal rules restrict any use of the information to criminally investigate or prosecute any alcohol or drug abuse patient.[facility] CenterIn the event this information is protected by the Federal Confidentiality of Alcohol and Drug Abuse Patient Records regulations: The Federal rules restrict any use of the information to criminally investigate or prosecute any alcohol or drug abuse patient.[facility] CenterIn the event this information is protected by the Federal Confidentiality of Alcohol and Drug Abuse Patient Records regulations: The Federal rules restrict any use of the information to criminally investigate or prosecute any alcohol or drug abuse patient.[facility] CenterIn the event this information is protected by the Federal Confidentiality of Alcohol and Drug Abuse Patient Records regulations: The Federal rules restrict any use of the information to criminally investigate or prosecute any alcohol or drug abuse patient.[facility] CenterIn the event this information is protected by the Federal Confidentiality of Alcohol and Drug Abuse Patient Records regulations: The Federal rules restrict any use of the information to criminally investigate or prosecute any alcohol or drug abuse patient.[facility] CenterIn the event this information is protected by the Federal Confidentiality of Alcohol and Drug Abuse Patient Records regulations: The Federal rules restrict any use of the information to criminally investigate or prosecute any alcohol or drug abuse patient.[facility] CenterIn the event this information is protected by the Federal Confidentiality of Alcohol and Drug Abuse Patient Records regulations: The Federal rules restrict any use of the information to criminally investigate or prosecute any alcohol or drug abuse patient.[facility] CenterIn the event this information is protected by the Federal Confidentiality of Alcohol and Drug Abuse Patient Records regulations: The Federal rules restrict any use of the information to criminally investigate or prosecute any alcohol or drug abuse patient.[facility] CenterIn the event this information is protected by the Federal Confidentiality of Alcohol and Drug Abuse Patient Records regulations: The Federal rules restrict any use of the information to criminally investigate or prosecute any alcohol or drug abuse patient.[facility] CenterIn the event this information is protected by the Federal Confidentiality of Alcohol and Drug Abuse Patient Records regulations: The Federal rules restrict any use of the information to criminally investigate or prosecute any alcohol or drug abuse patient.[facility] CenterIn the event this information is protected by the Federal Confidentiality of Alcohol and Drug Abuse Patient Records regulations: The Federal rules restrict any use of the information to criminally investigate or prosecute any alcohol or drug abuse patient.[facility] CenterIn the event this information is protected by the Federal Confidentiality of Alcohol and Drug Abuse Patient Records regulations: The Federal rules restrict any use of the information to criminally investigate or prosecute any alcohol or drug abuse patient.[facility] CenterIn the event this information is protected by the Federal Confidentiality of Alcohol and Drug Abuse Patient Records regulations: The Federal rules restrict any use of the information to criminally investigate or prosecute any alcohol or drug abuse patient.[facility] CenterIn the event this information is protected by the Federal Confidentiality of Alcohol and Drug Abuse Patient Records regulations: The Federal rules restrict any use of the information to criminally investigate or prosecute any alcohol or drug abuse patient.[facility] CenterIn the event this information is protected by the Federal Confidentiality of Alcohol and Drug Abuse Patient Records regulations: The Federal rules restrict any use of the information to criminally investigate or prosecute any alcohol or drug abuse patient.[facility] CenterIn the event this information is protected by the Federal Confidentiality of Alcohol and Drug Abuse Patient Records regulations: The Federal rules restrict any use of the information to criminally investigate or prosecute any alcohol or drug abuse patient.[facility] CenterIn the event this information is protected by the Federal Confidentiality of Alcohol and Drug Abuse Patient Records regulations: The Federal rules restrict any use of the information to criminally investigate or prosecute any alcohol or drug abuse patient.[facility] Medical CenterIn the event this information is protected by the Federal Confidentiality of Alcohol and Drug Abuse Patient Records regulations: The Federal rules restrict any use of the information to criminally investigate or prosecute any alcohol or drug abuse patient.[facility] the event this information is protected by the Federal Confidentiality of Alcohol and Drug Abuse Patient Records regulations: The Federal rules restrict any use of the information to criminally investigate or prosecute any alcohol or drug abuse patient.[facility] Center[facility] the event this information is protected by the Federal Confidentiality of Alcohol and Drug Abuse Patient Records regulations: The Federal rules restrict any use of the information to criminally investigate or prosecute any alcohol or drug abuse patient.[facility] Center[facility] the event this information is protected by the Federal Confidentiality of Alcohol and Drug Abuse Patient Records regulations: The Federal rules restrict any use of the information to criminally investigate or prosecute any alcohol or drug abuse patient.[facility] Center[facility] the event this information is protected by the Federal Confidentiality of Alcohol and Drug Abuse Patient Records regulations: The Federal rules restrict any use of the information to criminally investigate or prosecute any alcohol or drug abuse patient.[facility] CenterIn the event this information is protected by the Federal Confidentiality of Alcohol and Drug Abuse Patient Records regulations: The Federal rules restrict any use of the information to criminally investigate or prosecute any alcohol or drug abuse patient.[facility] CenterIn the event this information is protected by the Federal Confidentiality of Alcohol and Drug Abuse Patient Records regulations: The Federal rules restrict any use of the information to criminally investigate or prosecute any alcohol or drug abuse patient.[facility] CenterIn the event this information is protected by the Federal Confidentiality of Alcohol and Drug Abuse Patient Records regulations: The Federal rules restrict any use of the information to criminally investigate or prosecute any alcohol or drug abuse patient.[facility] CenterIn the event this information is protected by the Federal Confidentiality of Alcohol and Drug Abuse Patient Records regulations: The Federal rules restrict any use of the information to criminally investigate or prosecute any alcohol or drug abuse patient.[facility] CenterIn the event this information is protected by the Federal Confidentiality of Alcohol and Drug Abuse Patient Records regulations: The Federal rules restrict any use of the information to criminally investigate or prosecute any alcohol or drug abuse patient.[facility] Reason for Visit (unrecogniz ed section and content) Specialty Diagnoses / Procedures Referred By Linn carrillo Referred To Contact [facility] Diagnoses Abnormality of gait due to impairment of balance Procedures CONSULT TO PHYSICAL THERAPY PHYSICAL THERAPY EVALUATION HIGH COMPLEX 45 MINS Tamie Kaur MD [address] [place] [address] [facility] [address] [address] Referral ID Status Reason Start Date Expiration Date Visits Requested Visits Authorized [id number] Authorized PCP Requested Referral Auto-Generate d Referral [...] 6 mo Reason Comments Hospital Follow Up [facility] discharged Reason Comments Results Reason Comments Consult altered mental statu s Specialty Diagnoses / Procedures Referred By Linn carrillo Referred To Contact Neurology Diagnoses Altered mental status, unspecified altered mental status type Procedures CONSULT TO NEUROLOGY OFFICE/OUTPATIENT [facility] MDM 60-74 MINUTES Abdulaziz Caldera MD [address] [place] [address] Referral ID Status Reason Start Date Expiration Date V isits Requested Visits Authorized [id number] Closed PCP Requested Referral 01/01/2022 01/01/2023 1 [...] Nursing Plan of Care Update Reason Comments [facility] PT POC Reason Comments OT plan of care Reason Onset Date Comments Refill Request 07/25/2022 Reason Comments Home Health-Nursing Update Reason Onset Date Comments Anticoagulation 07/31/2022 Specialty Diagnoses / Procedures Referred By Linn carrillo Referred To Contact Ent - Otolaryngology Diagnoses Chronic frontal sinusitis Procedures CONSULT TO ENT OFFICE/OUTPATIENT NEW [facility]IGH MDM 60-74 MINUTES Abdulaziz Caldera MD [address] [place] [address] Referral ID Status Reason Start Date Expiration Date V isits Requested Visits Authorized [id number] Closed PCP Requested Referral 07/12/2022 07/12/2023 1 [...] Care Teams (unrecognized sec tion and content) [employer]ol[employer] Relationship Specialty Start Date End Date Abdulaziz Caldera MD [address] [place] [address] PCP - General Family Practice 11/23/20 Laborer Demolition Relationship Specialty Start Date End Date Abdulaziz Caldera MD [address] [facility] [place] [address] PCP - General Family Practice 11/23/20 Laborer Demolition Relationship Specialty Start Date End Date Abdulaziz Caldera MD [address] [facility] [place] [address] PCP - General Family Practice 11/23/20 Laborer Demolition Relationship Specialty Start Date End Date Abdulaziz Caldera MD [address] [facility] [place] [address] PCP - General Family Practice 11/23/20 Laborer Demolition Relationship Specialty Start Date End Date Abdulaziz Caldera MD [facility] [place] [address] PCP - General Family Practice 11/23/20 Laborer Demolition Relationship Specialty Start Date End Date Abdulaziz Caldera MD [address] [facility] [place] [address] PCP - General Family Practice 11/23/20 Laborer Demolition Relationship Specialty Start Date End Date Abdulaziz Caldera MD [address] [facility] [place] [address] PCP - General Family Practice 11/23/20 Laborer Demolition Relationship Specialty Start Date End Date Abdulaziz Caldera MD [address] [facility] [place] [address] PCP - General Family Practice 11/23/20 Laborer Demolition Relationship Specialty Start Date End Date Abdulaziz Caldera MD [address] [facility] [place] [address] PCP - General Family Practice 11/23/20 Laborer Demolition Relationship Specialty Start Date End Date Abdulaziz Caldera MD [address] [facility] [place] [address] PCP - General Family Practice 11/23/20 Laborer Demolition Relationship Specialty Start Date End Date Abdulaziz Caldera MD [address] [facility] [place] [address] PCP - General Family Practice 11/23/20 Laborer Demolition Relationship Specialty Start Date End Date Abdulaziz Caldera MD [address] [facility] [place] [address] PCP - General Family Practice 11/23/20 Laborer Demolition Relationship Specialty Start Date End Date Abdulaziz Caldera MD [address] [facility] [place] [address] PCP - General Family Practice 11/23/20 Laborer Demolition Relationship Specialty Start Date End Date Abdulaziz Caldera MD [address] [facility] [place] [address] PCP - General Family Practice 11/23/20 Laborer Demolition Relationship Specialty Start Date End Date Abdulaziz Caldera MD [address] [facility] [place] [address] PCP - General Family Practice 11/23/20 Laborer Demolition Relationship Specialty Start Date End Date Abdulaziz Caldera MD [address] [facility] [place] [address] PCP - General Family Practice 11/23/20 Laborer Demolition Relationship Specialty Start Date End Date Abdulaziz Caldera MD [address] [facility] [place] [address] PCP - General Family Practice 11/23/20 Laborer Demolition Relationship Specialty Start Date End Date Abdulaziz Caldera MD [address] [facility] [place] [address] PCP - General Family Practice 11/23/20 Laborer Demolition Relationship Specialty Start Date End Date Abdulaziz Caldera MD [address] [facility] [place] [address] PCP - General Family Practice 11/23/20 Laborer Demolition Relationship Specialty Start Date End Date Abdulaziz Caldera MD [address] [facility] [place] [address] PCP - General Family Practice 11/23/20 Laborer Demolition Relationship Specialty Start Date End Date Abdulaziz Caldera MD [address] [facility] [place] [address] PCP - General Family Practice 11/23/20 Laborer Demolition Relationship Specialty Start Date End Date Abdulaziz Caldera MD [address] [facility] [place] [address] PCP - General Family Medicine 11/23/20 Laborer Demolition Relationship Specialty Start Date End Date Abdulaziz Caldera MD [address] [facility] [place] [address] PCP - General Family Medicine 11/23/20 Laborer Demolition Relationship Specialty Start Date End Date Abdulaziz Caldera MD [address] [facility] [place] [address] PCP - General Family Medicine 11/23/20 Laborer Demolition Relationship Specialty Start Date End Date Abdulaziz Caldera MD [address] [facility] [place] [address] PCP - General Family Medicine 11/23/20 Laborer Demolition Relationship Specialty Start Date End Date Abdulaziz Caldera MD [address] [facility] [place] [address] PCP - General Family Medicine 11/23/20 Laborer Demolition Relationship Specialty Start Date End Date Abdulaziz Caldera MD [address] [facility] [place] [address] PCP - General Family Medicine 11/23/20 Laborer Demolition Relationship Specialty Start Date End Date Abdulaziz Caldera MD [address] [facility] [place] [address] PCP - General Family Medicine 11/23/20 Laborer Demolition Relationship Specialty Start Date End Date Abdulaziz Caldera MD [address] [facility] [place] [address] PCP - General Family Medicine 11/23/20 Laborer Demolition Relationship Specialty Start Date End Date Abdulaziz Caldera MD [address] [place] [address] PCP - General Family Medicine 11/23/20 Laborer Demolition Relationship Specialty Start Date End Date Abdulaziz Caldera MD [address] [facility] [place] [address] PCP - General Family Medicine 11/23/20 Laborer Demolition Relationship Specialty Start Date End Date Abdulaziz Caldera MD [address] [facility] [place] [address] PCP - General Family Medicine 11/23/20 Laborer Demolition Relationship Specialty Start Date End Date Abdulaziz Caldera MD [address] [place] [address] PCP - General Family Medicine 11/23/20 Laborer Demolition Relationship Specialty Start Date End Date Abdulaziz Caldera MD [address] [place] [address] PCP - General Family Medicine 11/23/20 Laborer Demolition Relationship Specialty Start Date End Date Abdulaziz Caldera MD [address] [place] [address] PCP - General Family Medicine 11/23/20 Laborer Demolition Relationship Specialty Start Date End Date Abdulaziz Caldera MD [address] [facility] [place] [address] PCP - General Family Medicine 11/23/20 Laborer Demolition Relationship Specialty Start Date End Date Abdulaziz Caldera MD [address] [facility] [place] [address] PCP - General Family Medicine 11/23/20 Laborer Demolition Relationship Specialty Start Date End Date Abdulaziz Caldera MD [address] [facility] [place] [address] PCP - General Family Medicine 11/23/20 Laborer Demolition Relationship Specialty Start Date End Date Abdulaziz Caldera MD [address] [facility] [place] [address] PCP - General Family Medicine 11/23/20 Laborer Demolition Relationship Specialty Start Date End Date Abdulaziz Caldera MD [address] [facility] [place] [address] PCP - General Family Medicine 11/23/20 Laborer Demolition Relationship Specialty Start Date End Date Abdulaziz Caldera MD [address] [facility] [place] [address] PCP - General Family Medicine 11/23/20 Laborer Demolition Relationship Specialty Start Date End Date Abdulaziz Caldera MD [address] [facility] [place] [address] PCP - General Family Medicine 11/23/20 (unrecognized sect ion and content) No Status Records FoundNo Status Records FoundNo Status Records FoundNo Status Records Found INFORMATION SOURCE (unrecogn ized section and content) DATE CREATED AUTHOR AUTHOR'S ORGANIZ ATION 02/04/2022 [facility] DATE CREATED AUTHOR AUTHOR'S ORGANIZ ATION 04/19/2022 [facility] ([place]) DATE CREATED AUTHOR AUTHOR'S DESTINY ATION [...] BE BASED ON THE PRIMARY CLINICAL RECORDS. [facility]. provides no warranty or guarantee of the accuracy or completeness of information in this document.
[2023-09-09 07:54] LABS: INR Fingerstick 2.9; Prothrombin Time Fingerstick 31.5 SEC (11.7-14.9)
== END ==
LOC: OLS.ACH 05:00
PROVIDERS: PCP Family Medicine; Visit Provider Internal Medicine
DX: I48.0 Paroxysmal atrial fibrillation (principal)
CPT/HCPCS: 36416; 85610

== ENCOUNTER → 2023-09-12 | Outpatient (REF) | payer MEDICARE, OTHER, SELFPAY ==
[2023-09-12 21:08] LABS: INR Fingerstick 1.7; Prothrombin Time Fingerstick 19.2 SEC (11.7-14.9)
== END ==
LOC: OLS.ACH 06:24
PROVIDERS: PCP Family Medicine; Visit Provider Internal Medicine
DX: Z79.01 Long term (current) use of anticoagulants (principal); Z86.711 Personal history of pulmonary embolism
CPT/HCPCS: 36416; 85610

== ENCOUNTER → 2023-09-13 | Outpatient (REF) | payer MEDICARE, OTHER, SELFPAY ==
--- OUTSIDE RECORDS SUMMARY | 2023-09-13 04:56 | XMS RPT_ITS | CCD ---
Author Name Unknown Address [address] [place] [address] Organization [facility] Care Team Providers Care Transportation Assistant Name Role Phone Abdulaziz Caldera MD Primary [...] Primary Care Unavailab ABDULAZIZ Zuniga Attending Unavailab ABDULAIZZ Zuniga Primary Care Unavailab ABDULAZIZ Zuniga Referring Unavailab le O'CHAVOJUSTINA DILLARD Attending Unavailable ABDULAZIZ CALDERA Primary Care Unavailab le MOISÉS, TAMIE Y Referring Unavailable O'CHAVOJUSTINA DILLARD Attending Unavailable Allergies Allergy Classification Reported Allergen(s) Allergy Type Date of Onset Reaction(s) Facility (20 sources) pantoprazole; Translations: [PANTOPRAZOLE] Drug Allergy 03-12-2020 Diarrhea [facility] Medications Current Medications Medication Drug Class(es) [...] Coronary atherosclerosis; Translations: [Atherosclerotic heart disease of [place] coronary artery without angina pectoris] Chronic Diabetes [...] sources) Long-term current use of anticoagulant; Translations: [penitentiary (current) use of anticoagulants] Onset: 05-07-2018 11-06-2018 Episodic Other aftercare (1 source) 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; Translations: [Chronic anticoagulation] Onset: 11-06-2018 Episodic Other aftercare (1 source) penitentiary (current) use of insulin; Translations: [Type 2 [...] Results Test Name Value Interpretation Reference Range [facility] it Vital Signs Date Time Vital Sign Value Performing Clinician Scott quinn 09-07-2022 11:01-0500 Body height 185.4 cm Tamie Kaur MD Work Phone: [facility] 09-07-2022 11:01-0500 Body weight 113.4 kg Tamie Kaur MD Work Phone: [facility] 09-07-2022 11:01-0500 Diastolic blood pressure 57 mm[Hg] Tamie Kaur MD Work Phone: [facility] 09-07-2022 11:01-0500 Heart rate 64 /min Tamie Kaur MD Work Phone: [facility] 09-07-2022 11:01-0500 Respiratory rate 16 /min Tamie Kaur MD Work Phone: [facility] 09-07-2022 11:01-0500 SaO2% (BldA) [Mass fraction] 99 % Tamie Kaur MD Work Phone: [facility] 09-07-2022 11:01-0500 Systolic blood pressure 124 mm[Hg] Tamie Kaur MD Work Phone: [facility] 08-09-2022 16:35-0500 Body weight 113.4 kg Abdulaziz Caldera MD Work Phone: [facility] 08-09-2022 16:35-0500 Diastolic blood pressure 62 mm[Hg] Abdulaziz Caldera MD Work Phone: [facility] 08-09-2022 16:35-0500 Heart rate 64 /min Abdulaziz Cladera MD Work Phone: [facility] 08-09-2022 16:35-0500 Respiratory rate 16 /min Abdulaziz Caldera MD Work Phone: [facility] 08-09-2022 16:35-0500 SaO2% (BldA) [Mass fraction] 96 % Abdulaziz Caldera MD Work Phone: [facility] 08-09-2022 16:35-0500 Systolic blood pressure 112 mm[Hg] Abdulaziz Caldera MD Work Phone: [facility] 04-17-2022 11:23-0400 Body height 185.4 cm Tamie Kaur MD Work Phone: [facility] 04-17-2022 11:23-0400 Body weight 114.31 kg Tamie Kaur MD Work Phone: [facility] 04-17-2022 11:23-0400 Diastolic blood pressure 71 mm[Hg] Tamie Kaur MD Work Phone: [facility] 04-17-2022 11:23-0400 Heart rate 72 /min Tamie Kaur MD Work Phone: [facility] 04-17-2022 11:23-0400 Respiratory rate 18 /min Tamie Kaur MD Work Phone: [facility] 04-17-2022 11:23-0400 SaO2% (BldA) [Mass fraction] 98 % Tamie Kaur MD Work Phone: [facility] 04-17-2022 11:23-0400 Systolic blood pressure 116 mm[Hg] Tamie Kaur MD Work Phone: [facility] 04-16-2022 13:09-0400 Body height 185.4 cm Abdulaziz Caldera MD Work Phone: [facility] 04-16-2022 13:09-0400 Body weight 114.31 kg Abdulaziz Caldera MD Work Phone: [facility] 04-16-2022 13:09-0400 Diastolic blood pressure 72 mm[Hg] Abdulaziz Caldera MD Work Phone: [facility] 04-16-2022 13:09-0400 Heart rate 70 /min Abdulaziz Caldera MD Work Phone: [facility] 04-16-2022 13:09-0400 Respiratory rate 16 /min Abdulaziz Caldera MD Work Phone: [facility] 04-16-2022 13:09-0400 SaO2% (BldA) [Mass fraction] 98 % Abdulaziz Caldera MD Work Phone: [facility] 04-16-2022 13:09-0400 Systolic blood pressure 132 mm[Hg] Abdulaziz Caldera MD Work Phone: [facility] 04-06-2022 09:36-0400 Body weight 114.31 kg Roselia Madrigal ALGEBRAIST.PRODUCT PLANNER Work Phone: [facility] 04-06-2022 09:36-0400 Diastolic blood pressure 62 mm[Hg] Roselia Podlogar ALGEBRAIST.PRODUCT PLANNER Work Phone: [facility] 04-06-2022 09:36-0400 Heart rate 62 /min Roselia Podlogar ALGEBRAIST.PRODUCT PLANNER Work Phone: [facility] 04-06-2022 09:36-0400 Respiratory rate 16 /min Roselia Podlogar ALGEBRAIST.PRODUCT PLANNER Work Phone: [facility] 04-06-2022 09:36-0400 SaO2% (BldA) [Mass fraction] 97 % Roselia Podlogar ALGEBRAIST.PRODUCT PLANNER Work Phone: [facility] 04-06-2022 09:36-0400 Systolic blood pressure 112 mm[Hg] Roselia Podlogar ALGEBRAIST.PRODUCT PLANNER Work Phone: [facility] 03-07-2022 11:12-0400 Body weight 114.76 kg Abdulaziz Caldera MD Work Phone: [facility] 03-07-2022 11:12-0400 Diastolic blood pressure 70 mm[Hg] Abdulaziz Caldera MD Work Phone: [facility] 03-07-2022 11:12-0400 Heart rate 64 /min Abdulaziz Caldera MD Work Phone: [facility] 03-07-2022 11:12-0400 Respiratory rate 16 /min Abdulaziz Caldera MD Work Phone: [facility] 03-07-2022 11:12-0400 Systolic blood pressure 118 mm[Hg] Abdulaziz Caldera MD Work Phone: [facility] 03-05-2022 12:00-0400 Diastolic blood pressure 60 mm[Hg] Rosa Elena Lemon PT [facility] 03-05-2022 12:00-0400 Systolic blood pressure 112 mm[Hg] Rosa Elena Lemon PT [facility] 01-12-2022 08:00-0400 Diastolic blood pressure 78 mm[Hg] Rosa Elena Lemon PT [facility] 01-12-2022 08:00-0400 Systolic blood pressure 130 mm[Hg] Rosa Elena Lemon PT [facility] 01-05-2022 09:56-0400 Body height 185.4 cm Tmaie Kaur MD Work Phone: [facility] 01-05-2022 09:56-0400 Body weight 111.58 kg Tamie Kaur MD Work Phone: [facility] 01-05-2022 09:56-0400 Diastolic blood pressure 62 mm[Hg] Tamie Kaur MD Work Phone: [facility] 01-05-2022 09:56-0400 Heart rate 58 /min Tamie Kaur MD Work Phone: [facility] 01-05-2022 09:56-0400 Respiratory rate 16 /min Tamie Kaur MD Work Phone: [facility] 01-05-2022 09:56-0400 SaO2% (BldA) [Mass fraction] 97 % Tamie Kaur MD Work Phone: [facility] 01-05-2022 09:56-0400 Systolic blood pressure 117 mm[Hg] Tamie Kaur MD Work Phone: [facility] 01-01-2022 10:12-0400 Body temperature 97.39 [degF] Abdulaziz Caldera MD Work Phone: [facility] 01-01-2022 10:12-0400 Body weight 111.77 kg Abdulaziz Caldera MD Work Phone: [facility] 01-01-2022 10:12-0400 Diastolic blood pressure 64 mm[Hg] Abdulaziz Caldera MD Work Phone: [facility] 01-01-2022 10:12-0400 Heart rate 47 /min Abdulaziz Caldera MD Work Phone: [facility] 01-01-2022 10:12-0400 Respiratory rate 18 /min Abdulaziz Caldera MD Work Phone: [facility] 01-01-2022 10:12-0400 SaO2% (BldA) [Mass fraction] 98 % Abdulaziz Caldera MD Work Phone: [facility] 01-01-2022 10:12-0400 Systolic blood pressure 112 mm[Hg] Abdulaziz Caldera MD Work Phone: [facility] 01-01-2022 08:55-0400 Body weight 112.49 kg Justina Leonie ALGEBRAIST.PRODUCT PLANNER Work Phone: [facility] 01-01-2022 08:55-0400 Diastolic blood pressure 74 mm[Hg] Justina Leonie ALGEBRAIST.PRODUCT PLANNER Work Phone: [facility] 01-01-2022 08:55-0400 Heart rate 60 /min Justina Leonie ALGEBRAIST.PRODUCT PLANNER Work Phone: [facility] 01-01-2022 08:55-0400 Respiratory rate 18 /min Justina Leonie ALGEBRAIST.PRODUCT PLANNER Work Phone: [facility] 01-01-2022 08:55-0400 Systolic blood pressure 147 mm[Hg] Justina Leonie ALGEBRAIST.PRODUCT PLANNER Work Phone: [facility] 12-27-2021 21:22-0400 Diastolic blood pressure 71 mm[Hg] DR MELANIA WORKMAN MD [facility] 12-27-2021 21:22-0400 Heart rate 73 /min DR MELANIA WORKMAN MD [facility] 12-27-2021 21:22-0400 Respiratory rate 24 /min DR MELANIA WORKMAN MD [facility] 12-27-2021 21:22-0400 Systolic blood pressure 121 mm[Hg] DR MELANIA WORKMAN MD [facility] 12-27-2021 20:06-0400 Diastolic blood pressure 59 mm[Hg] DR MELANIA WORKMAN MD [facility] 12-27-2021 20:06-0400 Heart rate 80 /min DR MELANIA WORKMAN MD [facility] 12-27-2021 20:06-0400 Respiratory rate 26 /min DR MELANIA WORKMAN MD [facility] 12-27-2021 20:06-0400 Systolic blood pressure 112 mm[Hg] DR MELANIA WORKMAN MD [facility] 12-27-2021 19:19-0400 Body temperature 98.6 [degF] DR MELANIA WORKMAN MD [facility] 12-27-2021 19:19-0400 Diastolic blood pressure 76 mm[Hg] DR MELANIA WORKMAN MD [facility] 12-27-2021 19:19-0400 Heart rate 82 /min DR MELANIA WORKMAN MD [facility] 12-27-2021 19:19-0400 Respiratory rate 26 /min DR MELANIA WORKMAN MD [facility] 12-27-2021 19:19-0400 Systolic blood pressure 138 mm[Hg] DR MELANIA WORKMAN MD [facility] 12-27-2021 17:36-0400 Body temperature 102.56 [degF] DR MELANIA WORKMAN MD [facility] 12-27-2021 17:36-0400 Body weight [address] MELANIA WORKMAN MD [facility] 12-27-2021 17:36-0400 Heart rate 104 /min DR MELANIA WORKMAN MD [facility] 12-14-2021 15:10-0400 Body temperature 98.2 [degF] Abdulaziz Caldera MD Work Phone: [facility] 12-14-2021 15:10-0400 Body weight 110.77 kg Abdulaziz Caldera MD Work Phone: [facility] 12-14-2021 15:10-0400 Diastolic blood pressure 70 mm[Hg] Abdulaziz Caldera MD Work Phone: [facility] 12-14-2021 15:10-0400 Heart rate 54 /min Abdulaziz Caldera MD Work Phone: [facility] 12-14-2021 15:10-0400 Respiratory rate 16 /min Abdulaziz Caldera MD Work Phone: [facility] 12-14-2021 15:10-0400 SaO2% (BldA) [Mass fraction] 96 % Abdulaziz Caldera MD Work Phone: [facility] 12-14-2021 15:10-0400 Systolic blood pressure 130 mm[Hg] Abdulaziz Caldera MD Work Phone: [facility] 12-08-2021 16:23-0400 Diastolic blood pressure 64 mm[Hg] Abdulaziz Caldera MD Work Phone: [facility] 12-08-2021 16:23-0400 Heart rate 85 /min Abdulaziz Caldera MD Work Phone: [facility] 12-08-2021 16:23-0400 Systolic blood pressure 110 mm[Hg] Abdulaziz Caldera MD Work Phone: [facility] 10-23-2021 13:05-0400 Body temperature 97.3 [degF] Marcella [place] PA-C Work Phone: [facility] 10-23-2021 13:05-0400 Body weight 114.58 kg Marcella [place] PA-C Work Phone: [facility] 10-23-2021 13:05-0400 Diastolic blood pressure 56 mm[Hg] Marcella Xavier PA-C Work Phone: [facility] 10-23-2021 13:05-0400 Heart rate 85 /min Marcella Xavier PA-C Work Phone: [facility] 10-23-2021 13:05-0400 SaO2% (BldA) [Mass fraction] 98 % Marcella [place] PA-C Work Phone: [facility] 10-23-2021 13:05-0400 Systolic blood pressure 132 mm[Hg] Marcella Xavier PA-C Work Phone: [facility] 10-10-2021 10:07-0400 Diastolic blood pressure 68 mm[Hg] Richard Jones MD Work Phone: [facility] 10-10-2021 10:07-0400 Heart rate 69 /min Richard Jones MD Work Phone: [facility] 10-10-2021 10:07-0400 Respiratory rate 16 /min Richard Jones MD Work Phone: [facility] 10-10-2021 10:07-0400 SaO2% (BldA) [Mass fraction] 98 % Richard Jones MD Work Phone: [facility] 10-10-2021 10:07-0400 Systolic blood pressure 150 mm[Hg] Richard Jones MD Work Phone: [facility] 10-10-2021 08:01-0400 Body temperature 97 [degF] Richard Jones MD Work Phone: [facility] Encounters Encounter Date Encounter Type Care Provider Facility Start: 01-28-2023 Telephone encounter Luis Caldera MD Work Phone: [facility] [place] Procedures Date Procedure Procedure Detail Performing Clinician Start: 04-06-2022 INFLUENZA SEASONAL QUADRIVALENT HIGH DOSE AGE 65+ Roselia Podlogar ALGEBRAIST.PRODUCT PLANNER Work Phone: Start: 04-06-2022 PFIZER-BIONTECH COVI D-19 BIVALENT BOOSTER VACCINE, AGE 12+ YR Roselia Podlogar ALGEBRAIST.PRODUCT PLANNER Work Phone: Start: 04-06-2022 Adult depression scr eening assessment Roselia Podlogar ALGEBRAIST.PRODUCT PLANNER Work Phone: Start: 03-07-2022 PROTHROMBIN TIME/PT Chr mine Caldera MD Work Phone: Start: 03-07-2022 Adult depression scr eening assessment Abdulaziz Caldera MD Work Phone: Start: 01-09-2022 Echo tthrc r-t 2d w/wom-mode compl spec&colr d Justina E Leonie ALGEBRAIST.PRODUCT PLANNER Work Phone: Start: 01-01-2022 Urnls dip stick/tabl [...] Author Start: 10-11-2031 Colonoscopy COLONOSCOPY [facility] Start: 10-11-2031 COLORECTAL CANCER SCREENING COLORECTAL CANCER SCREENING [facility] Start: 10-10-2024 Colonoscopy COLONOSCOPY [facility] Start: 10-10-2024 COLORECTAL CANCER SCREENING COLORECTAL CANCER SCREENING [facility] Start: 01-05-2024 ANNUAL PCP TEAM CHRONIC DISEASE VISIT ANNUAL PCP TEAM CHRONIC DISEASE VISIT [facility] Start: 01-05-2024 BP CONTROLLED (<130/80) BP CONTROLLED (<130/80) [facility] Start: 12-04-2023 BP CONTROLLED (<130/80) BP CONTROLLED (<130/80) [facility] Start: 11-20-2023 ANNUAL PCP TEAM CHRONIC DISEASE VISIT ANNUAL PCP TEAM CHRONIC DISEASE VISIT [facility] Start: 11-20-2023 BP CONTROLLED (<130/80) BP CONTROLLED (<130/80) [facility] Start: 09-07-2023 BP CONTROLLED (<130/80) BP CONTROLLED (<130/80) [facility] Start: 08-13-2023 HEMOGLOBIN/HEMATOCRIT HEMOGLOBIN/HEMATOCRIT [facility] Start: 08-13-2023 SERUM CREATININE SERUM CREATININE [facility] Start: 08-09-2023 ANNUAL PCP TEAM CHRONIC DISEASE VISIT ANNUAL PCP TEAM CHRONIC DISEASE VISIT [facility] Start: 08-09-2023 BP CONTROLLED (<130/80) BP CONTROLLED (<130/80) [facility] Start: 07-12-2023 ANNUAL PCP TEAM CHRONIC DISEASE VISIT ANNUAL PCP TEAM CHRONIC DISEASE VISIT [facility] Start: 07-12-2023 BP CONTROLLED (<130/80) BP CONTROLLED (<130/80) [facility] Start: 04-17-2023 BP CONTROLLED (<130/80) BP CONTROLLED (<130/80) [facility] Start: 04-16-2023 ANNUAL PCP TEAM CHRONIC DISEASE VISIT ANNUAL PCP TEAM CHRONIC DISEASE VISIT [facility] Start: 04-06-2023 Adult depression screening assessment DEPRESSION SCREENING [facility] Start: 04-06-2023 ANNUAL PCP TEAM CHRONIC DISEASE VISIT ANNUAL PCP TEAM CHRONIC DISEASE VISIT [facility] Start: 04-06-2023 BP CONTROLLED (<130/80) BP CONTROLLED (<130/80) [place] [facility] Start: 03-30-2023 3 comp foot exam completed DIABETIC FOOT EXAM [facility] Start: 03-15-2023 Influenza vaccination INFLUENZA (#1) [facility] Start: 03-07-2023 Adult depression screening assessment DEPRESSION SCREENING [facility] Start: 03-07-2023 ANNUAL PCP TEAM CHRONIC DISEASE VISIT ANNUAL PCP TEAM CHRONIC DISEASE VISIT [facility] Start: 03-07-2023 BP CONTROLLED (<130/80) BP CONTROLLED (<130/80) [facility] Start: 03-07-2023 SERUM CREATININE SERUM CREATININE [facility] Start: 03-05-2023 BP CONTROLLED (<130/80) BP CONTROLLED (<130/80) [facility] Start: 03-02-2023 Hepatitis B screening URINE ALBUMIN:CREATININE RATIO [facility] Start: 02-10-2023 Hemoglobin A1c/Hemoglobin.total in Blood HBA1C [facility] Start: 01-05-2023 BP CONTROLLED (<130/80) BP CONTROLLED (<130/80) [facility] Start: 01-01-2023 ANNUAL PCP TEAM CHRONIC DISEASE VISIT ANNUAL PCP TEAM CHRONIC DISEASE VISIT [facility] Start: 01-01-2023 BP CONTROLLED (<130/80) BP CONTROLLED (<130/80) [facility] Start: 01-01-2023 Hepatitis B surface antibody level LDL CHOLESTEROL [facility] Start: 01-01-2023 SERUM CREATININE SERUM CREATININE [facility] Start: 12-14-2022 ANNUAL PCP TEAM CHRONIC DISEASE VISIT ANNUAL PCP TEAM CHRONIC DISEASE VISIT [facility] Start: 12-08-2022 ANNUAL PCP TEAM CHRONIC DISEASE VISIT ANNUAL PCP TEAM CHRONIC DISEASE VISIT [facility] Start: 12-08-2022 BP CONTROLLED (<130/80) BP CONTROLLED (<130/80) [facility] Start: 09-06-2022 ANNUAL PCP TEAM CHRONIC DISEASE VISIT ANNUAL PCP TEAM CHRONIC DISEASE VISIT [facility] Start: 09-02-2022 Hemoglobin A1c/Hemoglobin.total in Blood HBA1C [facility] Start: 08-30-2022 SERUM CREATININE SERUM CREATININE [facility] Start: 08-09-2022 End: 10-09-2022 CBC W Auto Differential panel - Blood CBC + DIFF Lab Routine Type 2 diabetes mellitus with diabetic neuropathy, with long-term current use of insulin (HCC) Expected: 08/09/2022, Expires: 10/09/2022 [facility] Work Phone: Immunizations Immunization Date Immunization Notes Care Provider Fa cili 04-06-2022 COVID-19 booster vaccine, age 12+ yr, bivalent (PFIZER-BIONTECH) Roselia Podlogdavid ALGEBRAIST.PRODUCT PLANNER Work Phone: [facility] 04-06-2022 influenza, high-dose , quadrivalent vaccine (FLUZONE HIGH DOSE QUADRIVALENT) Roselia Raglandlogdavid ALGEBRAIST.PRODUCT PLANNER Work Phone: [facility] 06-14-2021 influenza, high-dose , quadrivalent vaccine (FLUZONE HIGH DOSE QUADRIVALENT) Abdulaziz Caldera MD Work Phone: [facility] Work Phone: 02-24-2021 zoster vaccine recombinant Abdulaziz Caldera MD Work Phone: [facility] 09-30-2020 COVID-19 vaccine, ag e 12+ yr (PFIZER-BIONTECH - PURPLE TOP) Abdulaziz Caldera MD Work Phone: [facility] 09-09-2020 COVID-19 vaccine, ag e 12+ yr (PFIZER-BIONTECH - PURPLE TOP) Abdulaziz Caldera MD Work Phone: [facility] 04-16-2020 influenza, high-dose , quadrivalent vaccine (FLUZONE HIGH DOSE QUADRIVALENT) Abdulaziz Caldera MD Work Phone: [facility] 03-14-2020 zoster vaccine recombinant Abdulaziz Caldera MD Work Phone: [facility] Work Phone: 04-02-2019 influenza, high dose seasonal, preservative-free Abdulaziz Caldera MD Work Phone: [facility] Work Phone: 04-15-2018 influenza, high dose seasonal, preservative-free Abdluaziz Caldera MD Work Phone: [facility] 06-13-2017 influenza, high dose seasonal, preservative-free Abdulaziz Caldera MD Work Phone: [facility] 06-20-2016 influenza, high dose seasonal, preservative-free Abdulaziz Caldera MD Work Phone: [facility] 11-24-2015 pneumococcal polysaccharide vaccine, 23 valent Abdulaziz Caldera MD Work Phone: [facility] 05-16-2015 influenza, high dose seasonal, preservative-free Abdulaziz Caldera MD Work Phone: [facility] 10-27-2014 pneumococcal conjuga te vaccine, 13 valent Abdulaziz Caldera MD Work Phone: [facility] 10-27-2014 zoster vaccine, live Socrates Caldera MD Work Phone: [facility] 06-11-2011 influenza virus vaccine, unspecified formulation Abdulaziz Caldera MD Work Phone: [facility] 12-25-2010 tetanus toxoid, redu veronika diphtheria toxoid, and acellular pertussis vaccine, adsorbed Abdulaziz Caldera MD Work Phone: [facility] 04-25-2009 pneumococcal polysaccharide vaccine, 23 valent Abdulaziz Caldera MD Work Phone: [facility] 03-21-2000 diphtheria and tetan us toxoids, adsorbed for pediatric use Abdulaziz Caldera MD Work Phone: [facility] Work Phone: 02-11-1961 poliovirus vaccine, inactivated Abdulaziz Caldera MD Work Phone: [facility] Work Phone: 03-25-1959 poliovirus vaccine, inactivated Abdulaziz Caldera MD Work Phone: [facility] Work Phone: 10-16-1956 poliovirus vaccine, inactivated Abdulaziz Caldera MD Work Phone: [facility] Work Phone: 01-12-1956 poliovirus vaccine, inactivated Abdulaziz Caldera MD Work Phone: [facility] Work Phone: 12-03-1955 poliovirus vaccine, inactivated Abdulaziz Caldera MD Work Phone: [facility] Work Phone: Payers Date Payer Category Payer Unknown HOSPITAL/MEDICAL GENERIC MEDICAL GENERIC [id number] 2012-Present [phone] [address] [place] [address] Indemnity [id number] 2012 Unknown HOSPITAL/MEDICAL GENERIC MEDICAL GENERIC [id number] 2012-Present [phone] [address] [place] [address] Indemnity [id number] 2012 Unknown [id number] 2012 Medicare MEDICARE MEDICAR E A AND B [id number] 2012-Present [phone] [place] [address] Medicare [id number] 2012 Medicare MEDICARE MEDICAR E A AND B [id number] 2012-Present [phone] [place] [address] Medicare [id number] 2012 Medicare [id number] 1945 Unknown [id number] Social History Date Type Detail Facility Start: 11-23-2020 End: 04-06-2022 Tobacco smoking status NHIS Never smoked tobacco [facility] Start: 09-06-2021 End: 12-03-2022 Alcohol intake Current non-drinker of alcohol (finding) [facility] Start: 1945 Sex Assigned At Not on file [facility] Start: 08-07-2021 End: 04-17-2022 Exposure to SARS-CoV-2 (event) Not sure [facility] Tobacco smoking status No Smokin g Status Entered [facility] Sex Assigned At Male [facility] Start: 01-02-2022 End: 01-12-2022 Exposure to SARS-CoV-2 (event) Unable to assess [facility] Work Phone: Start: 11-23-2020 End: 04-06-2022 Tobacco use and exposure Smokeless tobacco non-user [facility] Work Phone: Start: 11-19-2022 End: 12-03-2022 History of Social function [facility] Work Phone: Start: 11-19-2022 End: 12-03-2022 Tobacco use panel [facility] Work Phone: Adult Depression Screening Assessment 2 [facility] Work Phone: Medical Equipment Procedure Code [...] Note Patient Outreach (EVELYN ROGERS) RICHARD ROY ([id number]) 1945 M Date Time Provider Department 05/28/23 GUDELIA HUITRON During your visit today, we recorded the following information about you: Gudelia Huitron MA 05/28/2023 12:44 PM Signed POPULATION HEALTH NAVIGATION OUTREACH Action/FYI NO ANSWER inContactHART MESSAGE SENT ANNUAL MEDICARE WELLNESS Advance Directive Discussion Never done HbA1C due on 02/10/2023 Influenza Vaccine(1) due on 03/15/2023 Patient Identified by Name and : NO Outreach Outcome/Action Unable to reach patient: Phone number not valid / voicemail full [employer] message sent Did you use a PCP [...] time a week. - blood sugar diagnostic ([employer] ULTRA TEST) test strip Test blood sugar(s) [...] due to im (more content not included)... [facility] 05-28-2023 Note HNO ID: [id number] Author: Gudelia Huitron MA Service: ? Author Type: Vest Maker Type: Progress Notes Filed: 05/28/2023 12:44 PM Note Text: POPULATION HEALTH NAVIGATION OUTREACH Action/I NO ANSWER inContactHART MESSAGE SENT ANNUAL MEDICARE WELLNESS Advance Directive Discussion Never done HbA1C due on 02/10/2023 Influenza Vaccine(1) due on 03/15/2023 Patient Identified by Name and : NO Outreach Outcome/Action Unable to reach patient: Phone number not valid / voicemail full [employer]Sw[employer] Technologies[employer] message sent Did you use a PCP [...] Huitron MA May 28, 2023 7:41 AM [facility] 02-12-2023 Note Patient Outreach (IN [facility]) RICHARD ROY ([id number]) 1945 M Date Time Provider Department 02/12/23 ABDULAZIZ CALDERA During your visit today, we recorded the following information about you: Allergies As of Date: 02/12/2023 Noted Allergy Reaction PANTOPRAZOLE 09/24/2019 6 - Diarrhea Date Reviewed: 01/04/2023 Reviewed by: Tamika Grijalva LPN - Fully Assessed Visit Diagnosis:Diabetic retinopathy of right eye (HCC) [E11.319] Order(s):HGB A1C [[id number]] Order #: [id number] FUTURE Prescriptions as of 02/15/2023 - metFORMIN [...] Encounter Status:Closed by SOLA RANDLE on 02/15/23 [facility] 01-28-2023 Miscellaneous Notes Miya with [facility] calls to report pt was admitted to their facility over the weekend. Miya is requesting immunization record be faxed to: [phone]. Immunization record faxed as requested. Tania Heller LPN documented in this encounter [facility] 01-24-2023 Miscellaneous Notes Phoned patient's and [...] Patient's calling to say patient was at [facility] for rehabilitation after his hospitalization @ [facility] for confusion on 01/04. He was sent by squad to [facility] from [facility] on 01/21 due to episode of [...] post hospital stay but it won't be [facility]. Vannessa Jorge, JACEY documented in this encounter [facility] 01-04-2023 Note HNO ID: [id number] Author: Abdulaziz Caldera MD Service: ? Author [...] delayed closure on 05/28/18. Dr. Obregon at [facility] COLONOSCOPY 10/10/2021 repeat in 3 years [...] Yes Current Facility-Administ (more content not included)... [facility] 01-04-2023 Miscellaneous Notes Pt was seen [...] evaluation. documented in this encounter [facility] 01-04-2023 Miscellaneous Notes No return call [...] RN documented in this encounter [facility] 01-03-2023 Note HNO ID: [id number] Author: Justina Escoto PT Service: ? Author [...] included: Therapeutic exercise, Neuromuscular re-education, Therapeutic activities, Self-senior living management, and Gait training. Goals for Episode [...] PARTIALLY MET, improved 8 to 9 reps Honeydew in home exercise program including cardiovascular exercise. [...] in proper exercise (more content not included)... [facility] 01-03-2023 History of Presen t illness [...] included: Therapeutic exercise, Neuromuscular re-education, Therapeutic activities, Self-senior living management, and Gait training. Goals for Episode [...] PARTIALLY MET, improved 8 to 9 reps Honeydew in home exercise program including cardiovascular exercise. [...] with an (*). Patient education as noted. Self-Fdc Management: 1: *strongly enouraged f/u with physician [...] PT documented in this encounter [facility] 12-31-2022 Note HNO ID: [id number] Author: Justina Escoto PT Service: ? Author [...] Treatment Time Minutes (timed/untimed): 42 Ira Ramos, GRAIN SAMPLER Justina Escoto, PT [facility] 12-31-2022 History of Presen t illness [...] PT documented in this encounter [facility] 12-27-2022 Note HNO ID: [id number] Author: Justina Escoto PT Service: ? Author [...] Treatment Time Minutes (timed/untimed): 40 Ira Ramos, GRAIN SAMPLER Justina Escoto, PT [facility] 12-27-2022 History of Presen t illness [...] PT documented in this encounter [facility] 12-24-2022 Note HNO ID: [id number] Author: Justina Escoto PT Service: ? Author [...] was facilitated with verbal and visual cueing. Self-Fdc Management: 1: *strongly encouraged pt. to be [...] Time Minutes (timed/untimed): 40 Justina Escoto, PT [facility] 12-24-2022 History of Presen t illness [...] was facilitated with verbal and visual cueing. Self-Fdc Management: 1: *strongly encouraged pt. to be [...] PT documented in this encounter [facility] 12-17-2022 Note HNO ID: [id number] Author: Justina Escoto PT Service: ? Author [...] of gait belt. Patient education as noted. Self-Fdc Management: 1: *discussed automatic lights 2: *discussed [...] Time Minutes (timed/untimed): 40 Justina Escoto, PT [facility] 12-17-2022 History of Presen t illness [...] of gait belt. Patient education as noted. Self-Fdc Management: 1: *discussed automatic lights 2: *discussed [...] PT documented in this encounter [facility] 12-14-2022 Note HNO ID: [id number] Author: Justina Escoto PT Service: ? Author [...] Time Minutes (timed/untimed): 40 Justina Escoto, PT [facility] 12-14-2022 History of Presen t illness [...] PT documented in this encounter [facility] 12-12-2022 Note HNO ID: [id number] Author: Justina Escoto PT Service: ? Author [...] Time Minutes (timed/untimed): 40 Justina Escoto, PT [facility] 12-12-2022 History of Presen t [...] PT documented in this encounter [facility] 12-06-2022 Note HNO ID: [id number] Author: Justina Escoto, PT Service: ? Author [...] Time Minutes (timed/untimed): 40 Justina Escoto, PT [facility] 12-03-2022 Note HNO ID: [id number] Author: Bobbi Garcia MD Service: ? Author Type: Physician Type: Progress Notes Filed: 12/03/2022 12:13 PM Note Text: [facility] SE[facility]IONAL CARDIOLOGY Cardiology ([facility]) [address] [id number] OUTPATIENT VISIT DATE 12/03/2022 PRIMARY CARE PHYSICIAN: Abdulaziz Caldera [address] [place] [address] HISTORY OF PRESENT ILLNESS: Mr. Roy is [...] delayed closure on 05/28/18. Dr. Obregon at [facility] COLONOSCOPY 10/10/2021 repeat in 3 years [...] 5 EachRfl: 5 warfarin (COUMADIN) 5 mg flmdta39 mg Saturday and Saturday, 7.5 mg all [...] Units subcutaneously daily (more content not included)... [facility] 12-03-2022 Note HNO ID: [id number] Author: Justina Escoto, PT Service: ? Author [...] facilitated with verbal, visual, and tactile cueing. Self-Fdc Management: 1: *at length discussed importance of letting physician know about pt. concerns with his loss of interest in things prior to COVID-19 pandemic 2: *discussed that motivation will come from the pt. not from the or the therapist -- and this will directly influence pt. penitentiary progress. 3: *discussed with and pt. that pt. stating I'm lazy. is not his personality and pt. states that he does not want to be this way, but he wants to be comfortable. (more content not included)... [facility] 11-29-2022 Note HNO ID: [id number] Author: Justina Escoto, PT Service: ? Author [...] 11 repetitions to reflect decreased fall risk. Honeydew in home exercise program including cardiovascular exercise. [...] Planned: 12 Planned Treatment Interventions: Therapeutic exercise (52284), Neuromuscular re-education (52228), Manual therapy (66216), Therapeutic activities (15926), Self-senior living management (54244), Gait Training (62290), Patient/Family/Caregiver Education PLAN FOR NEXT VISIT: Assess [...] <20 [facility] (more content not included)... [facility] 11-20-2022 Miscellaneous Notes OMAR 11/19/22 [...] to the pharmacy. Please call patient at: [phone]. Nola Castro Pss documented in this encounter [facility] 11-19-2022 Miscellaneous Notes Pt notified of [...] 2.5 documented in this encounter [facility] 11-19-2022 Note HNO ID: [id number] Author: Abdulaziz Caldera MD Service: ? Author [...] delayed closure on 05/28/18. Dr. Obregon at [facility] COLONOSCOPY 10/10/2021 repeat in 3 years [...] chloride 0.9 % (more content not included)... [facility] 10-22-2022 Note HNO ID: [id number] Author: Arminda Obregon Service: ? Author Type: [...] RTC in 3-4 months. Arminda Obregon DPM [facility] 10-22-2022 Note HNO ID: [id number] Author: Blaire Sandoval RN Service: ? Author Type: ? Type: Progress Notes Filed: 10/22/2022 3:47 PM Note Text: Patient presents with: Left Foot - Established Patient, Diabetic Foot Care Right Foot - Established Patient, Diabetic Foot Care [facility] 10-22-2022 History of Presen t [...] Care documented in this encounter [facility] 10-22-2022 Instructions Armidna Obregon - 10/22/2022 3:34 PM EDT Diabetes [...] (or decreased sensation in your feet) a cook vacuum kettle should always cut your toenails. Be Careful [...] Go to your health care provider or cook vacuum kettle to treat these conditions. documented in this encounter [facility] 09-25-2022 Miscellaneous Notes Patient notified. Voices [...] no documented in this encounter [facility] 09-07-2022 Note HNO ID: [id number] Author: Tamie Kaur MD Service: ? Author [...] evaluation of folllow up after hospitalization in [facility]. he was admitted because of syncopal [...] others Since covid hit they went to [facility] and was staying in the house [...] METATARSAL+TOE,SINGLE Right 05/25/2018 (more content not included)... [facility] 09-07-2022 Miscellaneous Notes Call to patient. Provided number to schedule- [phone]. Offered to transfer patient to schedule but patient declined to schedule stating he could call later. PAOLA Potter, RN September 07, 2022 1:11 PM Suzanne please let patient know how to proceed with driving evaluation I already put the order in computer documented in this encounter [facility] 09-07-2022 History of Presen t illness [...] evaluation of folllow up after hospitalization in [facility]. he was admitted because of syncopal [...] others Since covid hit they went to [facility] and was staying in the house [...] delayed closure on 05/28/18. Dr. Obregon at [facility] COLONOSCOPY 10/10/2021 repeat in 3 years [...] one time a week. blood sugar diagnostic (Rabixo ULTRA TEST) test strip Test blood sugar(s) [...] clock test perfectly fine CN: II: Visual barebr intact. PERRLA. No Papilledema. III, IV, : [...] Cannot tandem Tamie Kaur M.D. [facility] [place] Department of Neurology Total time in minutes [...] night. documented in this encounter [facility] 08-28-2022 Miscellaneous Notes Phoned patient and [...] LPN documented in this encounter [facility] 08-16-2022 Miscellaneous Notes Patient has been [...] Bustillo documented in this encounter [facility] 08-14-2022 Miscellaneous Notes Phoned patient and [...] no documented in this encounter [facility] 08-09-2022 Note HNO ID: [id number] Author: Abdulaziz Caldera MD Service: ? Author [...] 12 months ago. Going to schedule appointment [facility]. 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 Asymtpomatic still on medical management. Has completed his home PT/OT. Echo and stress test at [facility] were negative/normal. Has follow up with Dr. Garcia on 12/03. questioning if they should be seen sooner. BP well controlled with current regimen <130/80. BPH: With use of flomax, patient is getting up once at night to urinate. Has weak stream, but denies straining, incomplete emptying, dysuria, hematuria, incontinence. Followed up with ENT in [place] for chronic frontal sinusitis on CT/MRI going [...] delayed closure on 05/28/18. Dr. Obregon at [facility] COLONOSCOPY 10/10/2021 repeat in 3 years [...] daily. For cholesterol. (more content not included)... [facility] 08-09-2022 History of Presen t [...] 12 months ago. Going to schedule appointment [facility]. 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 Asymtpomatic still on medical management. Has completed his home PT/OT. Echo and stress test at [facility] were negative/normal. Has follow up with Dr. Garcia on 12/03. questioning if they should be seen sooner. BP well controlled with current regimen <130/80. BPH: With use of flomax, patient is getting up once at night to urinate. Has weak stream, but denies straining, incomplete emptying, dysuria, hematuria, incontinence. Followed up with ENT in [place] for chronic frontal sinusitis on CT/MRI going [...] delayed closure on 05/28/18. Dr. Obregon at [facility] COLONOSCOPY 10/10/2021 repeat in 3 years [...] by mouth once daily. blood sugar diagnostic (BambuserUCH ULTRA TEST) test strip Test blood sugar(s) [...] Abs Lymph 1.00 - 4.00 k/uL 1.81 [place]% % 6.9 Abs [place] <0.87 k/uL 0.86 Eosin% % 3.1 Abs [...] arise. - Discussed diabetic education issues of oysterman diabetic complications, hypoglycemic symptoms, hyperglycemic symptoms, diet, [...] MD documented in this encounter [facility] 08-06-2022 Miscellaneous Notes Phoned patient and updated him with provider's message. Patient voiced understanding. I would not recommend a baby ASA for this patient. Pt called to check on refill on baby aspirin. This is not on med list. Pt asking if he should be taking this. Please advise pt. Mila Castro LPN documented in this encounter [facility] 08-06-2022 Note HNO ID: [id number] Author: Arminda Jaimes MD Service: ? Author [...] physician via mail or electronic medical record. [facility] 08-06-2022 History of Presen t [...] record. documented in this encounter [facility] 07-31-2022 Miscellaneous Notes Spoke with patient [...] LPN documented in this encounter [facility] 07-27-2022 Miscellaneous Notes [employer] message not read as of 07/27/2022. Called and spoke with patient. Appt rescheduled to 09/07/2022 at 11:00 AM Meghana Burgess Due to change in provider's schedule, appt on 08/21/2022 needs rescheduled. Patient notified via [employer] message on 07/05/2022. Meghana Burgess documented in this encounter [facility] 07-26-2022 Miscellaneous Notes Thanks. Darlyn, a nurse with [facility] calling to state she has discharged pt from prison today. Pt is doing really well. No call back needed. Thank you. documented in this encounter [facility] 01-11-2023 Miscellaneous Notes Last Office Visit: 07/12/2022 Future Office Visit: 08/09/2022 Requested Prescriptions Pending Prescriptions Disp Refills amLODIPine (NORVASC) 2.5 mg tablet 30 tablet 5 Sig: Take 1 tablet by mouth once daily. Date of Last Labs: 03/02/2022 documented in this encounter [facility] 07-17-2022 Miscellaneous Notes Reviewed and agree. Maverick PT calling from [facility] to report plan of care for patient and PT will visit patient 2 times a week for 3 weeks. PT will work with patient on functional mobility training. Halima Diaz RN documented in this encounter [facility] 07-17-2022 Miscellaneous Notes Reviewed. Barbi from [facility] calling with OT plan of care, one time visit only, patient denies any further OT needs. No call back needed. documented in this encounter [facility] 07-13-2022 Miscellaneous Notes Left detailed message on confidential line Ewa Andino Ma agree Chiki, a nurse with [facility] calling with Detention Plan of Care for patient: Patient will be seen 1 time per week for 4 weeks for BP monitoring. No call back needed if provider agreeable. Thank you. documented in this encounter [facility] 07-12-2022 Note HNO ID: [id number] Author: Abdulaziz Caldera MD Service: ? Author Type: Physician Type: Progress Notes Filed: 07/17/2022 8:33 AM Note Text: Chief Complaint Patient presents with: Hospital F/U: Admitted 07/09/22 discharged 07/11/22 HPI Richard Roy is a 76 year old male who presents here today for Hospital Discharge Follow up.. Patient was admitted to [facility] from 07/09 to 07/11 after presenting [...] to follow up with our office and sales advisor. Since discharge yesterday, patient has been doing [...] delayed closure on 05/28/18. Dr. Obregon at [facility] COLONOSCOPY 10/10/2021 repeat in 3 years [...] 0.4 mg Take (more content not included)... [facility] 07-12-2022 Miscellaneous Notes Karly was notified Ewa Andino Ma Agree and will follow Karly with [facility] called and reports Pt was discharged yesterday and they received a referral for PT/OT/SN. They are going to do their start of care tomorrow, and she was asking if the provider would be willing to follow. documented in this encounter [facility] 07-09-2022 Miscellaneous Notes Last Office Visit: 04/16/2022 Future Office Visit: 09/17/2022 Requested Prescriptions Pending Prescriptions Disp Refills dulaglutide (TRULICITY) 1.5 mg/0.5 mL pen injector 12 Each 3 Sig: Inject 1.5 mg subcutaneously one time a week. Inject once per week. Discard Pen After Date of Last Labs: 03/02/2022 documented in this encounter [facility] 07-03-2022 Note HNO ID: [id number] Author: Arminda Obregon Service: ? Author Type: [...] RTC in 3-4 months. Arminda Obregon DPM [facility] 07-03-2022 Note HNO ID: [id number] Author: Marcella Cox RN Service: ? Author Type: Registered Nurse Type: Progress Notes Filed: 07/03/2022 11:17 AM Note Text: Patient presents with: Left Foot - Established Patient, Follow Up, nail care Right Foot - Established Patient, Follow Up, nail care [facility] 07-02-2022 Note HNO ID: [id number] Author: Bobbi Garcia MD Service: ? Author Type: Physician Type: Progress Notes Filed: 07/02/2022 12:42 PM Note Text: [facility] SECTION OF REGIONAL CARDIOLOGY Cardiology ([facility]) [address] [facility] [id number] OUTPATIENT VISIT DATE 07/02/2022 PRIMARY CARE PHYSICIAN: Abdulaziz Caldera [address] [place] [address] HISTORY OF PRESENT ILLNESS: Mr. Roy is [...] From Last OV with Justina Hadley [facility] 01/01/2022: Richard Roy is a 76 [...] delayed closure on 05/28/18. Dr. Obregon at [facility] COLONOSCOPY 10/10/2021 repeat in 3 years [...] at bedtime.Disp: 3 (more content not included)... [facility] 06-25-2022 Miscellaneous Notes Last appt: [...] LPN documented in this encounter [facility] 05-16-2022 Miscellaneous Notes Patient has been [...] LPN documented in this encounter [facility] 04-17-2022 History of Presen t illness [...] evaluation of folllow up after hospitalization in [facility]. he was admitted because of syncopal [...] others Since covid hit they went to [facility] and was staying in the house [...] delayed closure on 05/28/18. Dr. Obregon at [facility] COLONOSCOPY 10/10/2021 repeat in 3 years [...] week. Discard Pen After blood sugar diagnostic (Rabixo ULTRA TEST) test strip Test blood sugar(s) [...] Cannot tandem Tamie Kaur M.D. [facility] [place] Department of Neurology Total time in minutes [...] night. documented in this encounter [facility] 04-17-2022 Miscellaneous Notes Reviewed. Behavioral Health Social Work Progress Note Patient identified for [facility] from: PCP Reason for referral: Resources Behavioral Health Resources: Psychology - talk therapy [facility] encounter type: Telephone Encounter Attempts to Outreach: 1 attempt Referral made: Psychology - External Psychology-External referral type: Therapy Reason for external referral: Wait times at [facility] too long Final Disposition: Resources given Patient Discharged?: Yes Patient reported that caregiver was able to meet their needs today?: Yes SW placed a phone call to patient at the request of the PCP. Pt reported he is looking for talk therapy referrals at this time. SW provided the following referrals via phone: [facility] [address], [facility], [facility] [address] *[facility] [address] [address] *counseling [facility] [address], [address] [place] [address] *counseling [facility] [address] [place] [address] FEDERICO Zamudio April 17, 2022 documented in this encounter [facility] 04-16-2022 History of Presen t illness [...] delayed closure on 05/28/18. Dr. Obregon at [facility] COLONOSCOPY 10/10/2021 repeat in 3 years [...] week. Discard Pen After blood sugar diagnostic (GenticelTOUCH ULTRA TEST) test strip Test blood sugar(s) [...] Abs Lymph 1.00 - 4.00 k/uL 1.81 [place]% % 6.9 Abs [place] <0.87 k/uL 0.86 Eosin% % 3.1 Abs [...] arise. - Discussed diabetic education issues of oysterman diabetic complications, hypoglycemic symptoms, hyperglycemic symptoms, diet, [...] MD documented in this encounter [facility] documented in this encounter [facility] History of Present illness Narrative* Roselia Madrigal, ALGEBRAIST.PRODUCT PLANNER - 04/06/2022 9:40 AM EDT 04/06/2022 Patient [...] ONCE DAILY. FOR CHOLESTEROL. blood sugar diagnostic (Rabixo ULTRA TEST) test strip Test blood sugar(s) [...] SEASONAL QUADRIVALENT HIGH DOSE AGE 65+ - Eyewitness Surveillance-Fio COVID-19 BIVALENT BOOSTER VACCINE, AGE 12+ YR [...] which included preparing to see the patient, [id number] patient care, completing clinical documentation, obtaining and/or reviewing separately obtained history, performing a medically appropriate examination, and counseling and educating the patient/family/caregiver. [facility] Miscellaneous Notes* Telephone Encounter - Valencia [...] AM EDT ----- Message from Roselia Madrigal APRN.PRODUCT PLANNER sent at 04/03/2022 2:47 PM EDT ----- Please forward INR to doctor advertising consultant Roselia Madrigal APRN.PRODUCT PLANNER [facility] History of Present illness Narrative* Arminda [...] Martinez LPN documented [facility] Instructions* Patient Instructions* Arminda Obregon - [...] (or decreased sensation in your feet) a cook vacuum kettle should always cut your toenails. Be Careful [...] Go to your health care provider or cook vacuum kettle to treat these conditions. [facility] History of Present illness Narrative* Rosa [...] 01/12/22 through 03/15/22 Goals updated on 03/23/2022. Honeydew in home exercise program. (Met) Patient will [...] Poon PT documented [facility] Miscellaneous Notes* Telephone Encounter - Maggy Ibarra Pss - 03/22/2022 1:49 PM EDT Pharmacy verified in [facility] Patient has been identified by [...] Ibarra Pss documented in [facility] History of Present illness Narrative* Rosa [...] Treatment Time Minutes (timed/untimed): 40 Karen Weber, GRAIN SAMPLER Rosa Elena Poon PT documented in [facility] History of Present illness Narrative* Rosa [...] Whiting PT documented in [facility] Miscellaneous Notes* Addendum Note - Rosa Elena Poon PT - 03/09/2022 1:18 PM EDTAddended by: ROSA ELENA POON on: 03/09/2022 01:18 PM Modules accepted: Orders documented in this encounterAd[facility] History of Present illness Narrative* Rosa [...] 01/12/22 through 03/15/22 Goals updated on 03/09/2022. Honeydew in home exercise program. (Met) Patient will [...] Patient to be seen for Therapeutic exercise (55549);Neuromuscular re-education (42810);Gait Training (33062);Patient/Family/Caregiver Education PLAN FOR NEXT VISIT: Add bridging [...] Lemon, PT documented [facility] Miscellaneous Notes* Telephone Encounter - Amada [...] Ma Cma documented in [facility]Ad[facility] Instructions* Patient Instructions* Abdulaziz Caldera MD - 03/07/2022 11:45 AM EDT Please take 2,000 units of vitamin D daily over the counter. documented in [facility]Ad[facility] History of Present illness Narrative* Abdulaziz Caldera MD - 03/07/2022 11:19 AM EDT Chief Complaint Patient presents with: 6 Month Exam ER F/U HPI Richard Roy is a 76 year old male who presents here today for ER Follow Up.. Patient evaluated at [facility] ED on 03/02 for complaint of [...] delayed closure on 05/28/18. Dr. Obregon at [facility] COLONOSCOPY 10/10/2021 repeat in 3 years [...] ONCE DAILY. FOR CHOLESTEROL. blood sugar diagnostic (Rabixo ULTRA TEST) test strip Test blood sugar(s) [...] Abs Lymph 1.00 - 4.00 k/uL 1.81 [place]% % 6.9 Abs [place] <0.87 k/uL 0.86 [place]% % 3.1 Abs [...] Caldera MD documented in [facility] encounterAd[facility] History of Present illness Narrative* Rosa [...] Poon PT documented in this encounterAd[facility]08-[facility] History of Present illness Narrative* Rosa [...] Poon PT documented in this encounterAd[facility]08-[facility] History of Present illness Narrative* Rosa [...] Poon PT documented in this encounterAd[facility]08-12-[facility] History of Present illness Narrative* Rosa [...] Whiting PT documented in this encounterAd[facility]08-03-[facility] History of Present illness Narrative* Rosa [...] Poon PT documented in this encounterAdams [facility]07-29-[facility]22 History of Present illness Narrative* Rosa [...] 01/12/22 through 03/15/22 Goals updated on 02/09/2022. [place] in home exercise program. (Met) Patient will [...] Patient to be seen for Therapeutic exercise (43570);Neuromuscular re-education (92292);Gait Training (47585);Patient/Family/Caregiver Education PLAN FOR NEXT VISIT: Continue to [...] Poon PT documented in this encounterAdams [facility] Hospital07-26-2022 Miscellaneous Notes* Telephone Encounter - Nola [...] Castro Pss documented in this encounterAdams [facility] Hospital07-22-[facility]22 History of Present illness Narrative* Cortney [...] Whiting, PT documented in this encounterAd[facility] Hospital07-21-2022 Miscellaneous Notes* Telephone Encounter - Mila [...] No need to notify patient. Eulalia [facility] documented in this encounterAdams County Hospital07-19-2022 History of Present illness Narrative* Justina [...] Whiting PT documented in this encounterAd[facility] Hospital07-12-2022 Miscellaneous Notes* Telephone Encounter - Rebecca [...] Gonzales RN documented in this encounterAdams [facility] Hospital07-12-2022 History of Present illness Narrative* Chiki [...] Whiting PT documented in this encounterAd[facility]07-08-2022 Miscellaneous Notes* Telephone Encounter - Maggy [...] Please advise. documented in this encounterAdams [facility] Hospital07-01-2022 History of Present illness Narrative* Rosa [...] of Care: created on 01/12/22 through 03/15/22 [place] in home exercise program. Patient will demonstrate [...] Planned: 16 Planned Treatment Interventions: Therapeutic exercise (57717);Neuromuscular re- education (95473);Gait Training (50889);Patient/Family/Caregiver Education PLAN FOR NEXT VISIT: Review HEP [...] Poon PT documented in this encounterAdams [facility]07-01-2022 Miscellaneous Notes* Telephone Encounter - Ewa [...] Please advise documented in this encounterAdams [facility] Hospital06-29-2022 Miscellaneous Notes* Telephone Encounter - Mila [...] Thank you! documented in this encounterAdams [facility] Hospital06-29-2022 Miscellaneous Notes* Result QuickNote - Justina Hadley APRN.CNP - 01/10/2022 11:33 AM EDT Please call patient and notify him. Echocardiogram is stable. Valve replacement function is stable.No cardiac structure/function changes to explain his syncope/collapse. Thank you! documented in this encounterAdams County Hospital06-24-2022 History of Present illness Narrative* Tamie [...] medical record. REFERRING PHYSICIAN: Abdulaziz Caldera [address] [facility] [id number] Accompanied by: Spouse ASSESSMENT: 76 year old [...] evaluation of folllow up after hospitalization in [facility]. he was admitted because of syncopal [...] others Since covid hit they went to [facility] and was staying in the house [...] delayed closure on 05/28/18. Dr. Obregon at [facility] COLONOSCOPY 10/10/2021 repeat in 3 years [...] by mouth once daily. blood sugar diagnostic (BambuserUCH ULTRA TEST) test strip Test blood sugar(s) [...] Cannot tandem Tamie Kaur M.D. [facility] [place] Department of Neurology January 05, 2022 Total [...] at night. documented in this encounterAdams County Hospital06-21-2022 Miscellaneous Notes* Telephone Encounter - Justina Martinez LPN - 01/02/2022 8:06 AM EDT I spoke to and informed him of Justina's response to lipid panel results. Patient voiced understanding. Justina Martinez LPN * Telephone Encounter - Justina Martinez LPN - 01/02/2022 7:43 AM EDT ----- Message from Justina Hadley APRN.PRODUCT PLANNER sent at 01/02/2022 7:38 AM EDT ----- Please call patient and notify him cholesterol has good control. Thank you! documented in this encounterAdams County Hospital06-20-2022 History of Present illness Narrative* Abdulaziz Caldera MD - 01/01/2022 10:20 AM EDT Chief Complaint Patient presents with: Hospital Follow Up: [facility] discharged 12/29/21 HPI Richard Roy is a 76 year old male who presents here today for Hospital Discharge Follow up. Accompanied today by his . Patient admitted to [facility] from 12/27 to 12/29 after presenting to the [facility] ED after being found slumped over his tractor at home earlier in the afteernoon. Had been working outside for unknown period of time. Had only eaten cookies and milk that day. Heat index over 100. Back to baseline at the time of evaluation by hospitalist at [facility]. Found to have leukocytosis at [facility] and elevated lactic acid level. Noted [...] echo since it was not completed at [facility]. No other changes to regimen. Patient [...] delayed closure on 05/28/18. Dr. Obregon at [facility] COLONOSCOPY 10/10/2021 repeat in 3 years [...] by mouth once daily. blood sugar diagnostic (Rabixo ULTRA TEST) test strip Test blood sugar(s) [...] Caldera MD documented in this encounterAdams County Hospital06-20-2022 Instructions* Patient Instructions* Justina Hadley APRN.PRODUCT PLANNER - 01/01/2022 9:05 AM EDT High Blood [...] risk for high blood pressure. Developed by [employer]. Published by [employer]. Copyright 2014 [employer] and/or one of its subsidiaries. All rights reserved. documented in this encounterAdams County Hospital06-20-2022 History of Present illness Narrative* Justina [...] delayed closure on 05/28/18. Dr. Obregon at [facility] COLONOSCOPY 10/10/2021 repeat in 3 years [...] injection (DEFINITY) INTRAVENOUS DIRECTED PRN Justina Hadley, ALGEBRAIST.PRODUCT PLANNER sodium chloride 0.9 % (flush) 10 mL (BD POSIFLUSH) 10 mL INTRAVENOUS DIRECTED PRN Justina Hadley, ALGEBRAIST.PRODUCT PLANNER Review of Systems Constitutional: Negative for chills, [...] MRI of his head CAD -MILD on [facility] 2004 -stress testing 2013 with no obvious [...] 8:57 AM documented in this encounterAdams County Hospital06-19-2022 Note. MICRO - Microbiology PROCEDURE: Blood Culture (bacterial) [*1] SOURCE: Blood BODY SITE: COLLECTED DATE/TIME: 12/27/2021 17:43 EDT RECEIVED DATE/TIME: 12/28/2021 14:37 EDT START DATE/TIME: 12/28/2021 14:37 EDT FREE TEXT SOURCE: FINAL REPORTS Final Report [] Verified Date/Time/Personnel: 12/31/2021 07:29 EDT Staphylococcus epidermidis Isolated from anaerobe bottle only. Refer to previous culture for susceptibility. [id number] PRELIMINARY REPORTS Preliminary Report [] Verified Date/Time/Personnel: 12/30/2021 09:39 EDT Staphylococcus epidermidis Isolated from anaerobe bottle only. Refer to previous culture for susceptibility. [id number] Preliminary Report [] Verified Date/Time/Personnel: 12/28/2021 15:59 EDT Culture has been received in lab and is no growth to date. Routine cultures are held for 5 days. STAINS GSANA [] Verified Date/Time/Personnel: 12/29/2021 14:08 EDT Gram Positive Cocci in clusters Performing Locations *1: This test was performed at: [facility], [address] [place] [address], [facility] , [facility] ([place])12-31-2021 Note. MICRO - Microbiology PROCEDURE: Blood Culture [...] Locations *1: This test was performed at: [facility], [address] [place] [address], [id number] , [facility] ([place])12-27-2021 SARS-CoV-2 (COVID-19) RNA ANGELY+probe Ql (Nph)Positive 2 *ABN* (12/27/21 5:43 PM)AO Auto Urine SSComment on above:Result Comment: positive covid cvrb s. tona Evaluation + Plan note Diagnostic Tests Pending * Urinalysis 12/27/21 * Blood Culture (bacterial) 12/27/21 * Blood Culture (bacterial) 12/27/21 [facility] 06-02-2022 History of Present illness Narrative* Abdulaziz Caldera MD - 12/14/2021 3:13 PM EDT Chief Complaint Patient presents with: Covid Follow Up HPI Richard Roy is a 76 year old male who presents here today for Above Complaints.. Patient positive for COVID in the [facility] ER last week on 12/06. Spoke [...] delayed closure on 05/28/18. Dr. Obregon at [facility] COLONOSCOPY 10/10/2021 repeat in 3 years [...] by mouth once daily. blood sugar diagnostic (GenticelTOUCH ULTRA TEST) test strip Test blood sugar(s) [...] Caldera MD documented in this encounterAdams County Hospital05-27-2022 History of Present illness Narrative* Abdulaziz [...] today for Above Complaints.. Patient evaluated at [facility] ER on 12/06 for complaint of generalized weakness, cough, and feeling off balance and developed cough which started on 12/04. Denied other COVID symptoms at that time. Lab workup in the ER was unremarkable aside from positive COVID test and INR of 3.3. UA unremarkable. CXR showed some ill defined densities in RLL which was likely 2/2 COVID infection. [place] to be well enough and discharged home [...] delayed closure on 05/28/18. Dr. Obregon at [facility] COLONOSCOPY 10/10/2021 repeat in 3 years [...] by mouth once daily. blood sugar diagnostic (Rabixo ULTRA TEST) test strip Test blood sugar(s) [...] which included preparing to see the patient, [id number] patient care, completing clinical documentation, obtaining and/or reviewing separately obtained history, performing a medically appropriate examination, counseling and educating the pat ient/family/caregiver and ordering medications, tests, or procedures. Abdulaziz Caldera MD documented in this encounterAdams County Hospital05-27-2022 Miscellaneous Notes* Telephone Encounter - Abdulaziz [...] with one of our providers or with [employer] care online. * Telephone Encounter - Rosa Elena Martinez Pss - 12/08/2021 2:16 PM EDT Patient called stating he was at [facility] ER on 12/06. Tested positive for covid. Patient was informed tocontact the office within 5 days to inform. Please advise patient when he can be seen in office. documented in this encounterAdams County Hospital05-09-2022 Miscellaneous Notes* Telephone Encounter - Eulalia [facility] - 11/20/2021 9:49 AM EDT Patient has been identified by name and date of : Yes Pending Prescriptions Disp Refills METFORMIN ER 500 MG 24 HR TABLET,EXTENDED RELEASE Sig: Take 1 tablet by mouth daily with breakfast. NUHA: No OMAR-09/06/21 Labs-08/30/21 NOV-03/07/22 RX INSTRUCTIONS: Patient aware RX will be sent to pharmacy. No need to notify patient. Eulalia [facility] documented in this encounterAdams County Hospital04-11-2022 Instructions* Patient Instructions* Marcella Park PA-C - 10/23/2021 1:25 PM EDT -Recommend daily fiber supplement and plenty of fluids The following instructions are important for you related to your office visit today with the [facility] General Surgeons. INSTRUCTIONS FOR DIVERTICULA [...] you should contact our office immediately @ [phone] and ask to be transferred to the General Surgery department. The following instructions are important for you related to your office visit today with the [facility] General Surgeons. INSTRUCTIONS FOLLOWING A [...] you should contact our office immediately @ [phone] and ask to be transferred to the General Surgery department. documented in this encounterAdams County Hospital04-11-2022 History of Present illness Narrative* Marcella Park PA-C - 10/23/2021 1:09 PM EDT FOLLOW UP VISIT - ENDOSCOPY NAME: Richard Bonilla [facility] NO.: [id number] DATE OF SERVICE: 10/23/2021 : 1945 REFERRING [...] which included preparing to see the patient, [id number] patient care, completing clinical documentation, obtaining and/or reviewing separately obtained history, counseling and educating the patient/family/caregiver, communicating with other HCPs (not separately reported), independently interpreting results (not separately reported) and communicating results to the patient/family/caregiver. Marcella Park PA-C documented in this encounterAdams County Hospital03-29-2022 Nurse Note* Caroline Larkin RN - [...] Larkin RN documented in this encounterAdams County Hospital03-29-2022 History and physical note * Richard [...] delayed closure on 05/28/18. Dr. Obregon at [facility] COLONOSCOPY FLX DX W/COLLJ SPEC WHEN [...] by mouth once daily. blood sugar diagnostic (BambuserUCH ULTRA TEST) test strip Test blood sugar(s) [...] offered a surgery/procedure at a [facility] facility. 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 Patient aware RX will be sent to pharmacy. No need to notify patient. Violette Lockhart documented in this encounterAdams County Hospital03-23-2022 Miscellaneous Notes* Telephone Encounter - Nelson [...] Diaz RN documented in this encounterAdams County Hospital02-02-2022 Miscellaneous Notes* Telephone Encounter - Garland Vicente - 08/16/2021 9:36 AM EST 10-10-2021 [facility] documented in this encounterAdams County Hospital01-13-2022 NoteHNO ID: [id number] Author: REY Burt Service: Radiology Author Type: Postal Sorting Officer Type: Progress Notes Filed: 07/27/2021 10:50 AM [...] DATE: July 27, 2021 TIME: 10:49 [id number] History of Past illness Narrative* Problem Noted [...] encounter (statuses as of 10/04/2021) [facility] of Past illness Narrative* Problem [...] encounter (statuses as of 10/05/2021) [facility] of [facility] illness Narrative* Problem [...] encounter (statuses as of 10/11/2021) [facility] of [facility] illness Narrative* Problem [...] encounter (statuses as of 10/16/2021) [facility] of [facility] illness Narrative* Problem [...] encounter (statuses as of 10/27/2021) [facility] of [facility] Narrative* Problem [...] encounter (statuses as of 11/20/2021) [facility] of [facility] Narrative* Problem [...] encounter (statuses as of 12/12/2021) [facility] of [facility] Narrative* Problem [...] encounter (statuses as of 12/13/2021) [facility] Narrative* Problem [...] encounter (statuses as of 12/14/2021) [facility] Narrative* Problem [...] encounter (statuses as of 01/01/2022) [facility] Narrative* Problem [...] encounter (statuses as of 01/02/2022) [facility] Narrative* Problem [...] encounter (statuses as of 01/02/2022) [facility] Narrative* Problem [...] encounter (statuses as of 01/06/2022) [facility] Narrative* Problem [...] encounter (statuses as of 01/10/2022) [facility] Narrative* Problem [...] encounter (statuses as of 01/11/2022) [facility] Narrative* Problem [...] encounter (statuses as of 01/12/2022) [facility] Narrative* Problem [...] encounter (statuses as of 01/12/2022) [facility] Narrative* Problem [...] encounter (statuses as of 01/19/2022) [facility] Narrative* Problem [...] encounter (statuses as of 01/23/2022) [facility] Narrative* Problem [...] encounter (statuses as of 01/25/2022) [facility] Narrative* Problem [...] encounter (statuses as of 01/30/2022) [facility] Narrative* Problem [...] encounter (statuses as of 02/01/2022) [facility] Narrative* Problem [...] encounter (statuses as of 02/02/2022) [facility] Narrative* Problem [...] encounter (statuses as of 02/02/2022) [facility] Narrative* Problem [...] encounter (statuses as of 02/06/2022) [facility] Narrative* Problem [...] encounter (statuses as of 02/09/2022) [facility] Narrative* Problem [...] encounter (statuses as of 02/14/2022) [facility] Narrative* Problem [...] encounter (statuses as of 02/26/2022) [facility] Narrative* Problem [...] encounter (statuses as of 03/02/2022) [facility] Narrative* Problem [...] encounter (statuses as of 03/05/2022) [facility] Narrative* Problem [...] encounter (statuses as of 03/07/2022) [facility] Narrative* Problem [...] encounter (statuses as of 03/08/2022) [facility] Narrative* Problem [...] encounter (statuses as of 03/09/2022) [facility]ative* Problem [...] encounter (statuses as of 03/12/2022) [facility]ative* Problem [...] encounter (statuses as of 03/16/2022) [facility]* Problem [...] encounter (statuses as of 03/23/2022) [facility]* Problem [...] encounter (statuses as of 04/03/2022) [facility]* Problem [...] encounter (statuses as of 04/04/2022) [facility]* Problem [...] encounter (statuses as of 04/06/2022) [facility]* Problem [...] encounter (statuses as of 04/17/2022) [facility]* Problem [...] encounter (statuses as of 04/17/2022) [facility]* Problem [...] encounter (statuses as of 04/19/2022) [facility]* Problem [...] encounter (statuses as of 05/16/2022) [facility]* Problem [...] encounter (statuses as of 06/25/2022) [facility]* Problem [...] encounter (statuses as of 07/14/2022) [facility]* Problem [...] encounter (statuses as of 07/15/2022) [facility]* Problem [...] encounter (statuses as of 07/18/2022) [facility]* Problem [...] encounter (statuses as of 07/18/2022) [facility]* Problem [...] encounter (statuses as of 07/19/2022) [facility]* Problem [...] encounter (statuses as of 07/20/2022) [facility]* Problem [...] encounter (statuses as of 07/25/2022) [facility]* Problem [...] encounter (statuses as of 07/26/2022) [facility]arr[facility]* Problem [...] encounter (statuses as of 07/27/2022) [facility]* Problem [...] encounter (statuses as of 07/31/2022) [facility]* Problem [...] encounter (statuses as of 08/06/2022) [facility]arrative* Problem [...] of this encounter (statuses as of 08/07/2022) [address]13-[address] History of Past illness Narrative* Problem [...] of this encounter (statuses as of 08/09/2022) [address]13[address]2015 History of Past illness Narrative* Problem [...] encounter (statuses as of 08/14/2022) [facility]* Problem [...] encounter (statuses as of 08/16/2022) [facility]* Problem [...] encounter (statuses as of 08/28/2022) [facility]* Problem [...] encounter (statuses as of 09/07/2022) [facility]* Problem [...] encounter (statuses as of 09/09/2022) [facility]* Problem [...] encounter (statuses as of 09/25/2022) [facility]* Problem [...] encounter (statuses as of 10/23/2022) [facility]* Problem [...] encounter (statuses as of 11/20/2022) [facility]* Problem [...] encounter (statuses as of 11/20/2022) [facility]* Problem [...] encounter (statuses as of 12/13/2022) [facility]* Problem [...] encounter (statuses as of 12/14/2022) [facility]* Problem [...] encounter (statuses as of 12/18/2022) [facility]* Problem [...] encounter (statuses as of 12/25/2022) [facility]* Problem [...] encounter (statuses as of 12/27/2022) [facility]* Problem [...] encounter (statuses as of 12/31/2022) [facility]* Problem [...] encounter (statuses as of 01/03/2023) [facility]* Problem [...] encounter (statuses as of 01/04/2023) [facility]* Problem [...] encounter (statuses as of 01/04/2023) [facility]* Problem [...] encounter (statuses as of 01/25/2023) [facility]* Problem [...] of this encounter (statuses as of 01/29/2023) [facility] note* Diagnosis Type 2 diabetes mellitus with diabetic neuropathy, with long-term current use of insulin (HCC) Status post aortic valve repair Other postprocedural status Chronic anticoagulation Long-term (current) use of anticoagulants documented [facility] this encounter [facility]* Diagnosis Colon cancer screening [...] Diagnosis COVID-19- Primary [facility]* Diagnosis Hyperlipidemia with target LDL less than 100- Primary Other and unspecified hyperlipidemia Primary hypertension Unspecified essential hypertension Thoracic aortic aneurysm without rupture (HCC) Thoracic aneurysm without mention of rupture Coronary artery disease involving [place] coronary artery of [place] heart without angina pectoris Syncope, unspecified syncope type Obesity, Class II, BMI 35-39.9 Obesity, unspecified [facility] Diagnosis Syncope and collapse- Primary Altered mental status, unspecified altered mental status type Urinary incontinence, unspecified type Benign prostatic hyperplasia with nocturia Nocturia Vitamin D deficiency, unspecified Wound of left lower extremity, initial encounter Encounter for screening for malignant neoplasm of prostate Special screening for malignant neoplasm of prostate [facility] Diagnosis Abnormality of gait due to impairment of balance- Primary Altered mental status, unspecified altered mental status type [facility] Diagnosis Chronic anticoagulation Long-term (current) use of anticoagulants Thoracic aortic aneurysm without rupture (HCC) Thoracic aneurysm without mention of rupture Status post aortic valve repair Other postprocedural status [facility] Diagnosis Type 2 diabetes mellitus with diabetic neuropathy, with long-term current use of insulin (HCC)- Primary [facility] Diagnosis Abnormality of gait due [...] vitamin D deficiency [facility]* Diagnosis Type 2 diabetes mellitus [...] [facility]) [facility] Diagnosis Abnormality of gait due [...] kidney failure, unspecified [facility] Diagnosis Abnormality of gait due [...] [facility]) [facility] Diagnosis Generalized weakness- Primary Other malaise and fatigue Encounter for immunization Need for other specified prophylactic vaccination against single bacterial disease Mild depression Depressive disorder, not elsewhere classified [facility] Diagnosis Generalized anxiety disorder- Primary [...] [facility] Diagnosis Driving safety issue- Primary Other specified personal history presenting hazards to health [facility] Diagnosis Onychomycosis- Primary Dermatophytosis of nail Pain in toe of left foot Pain in limb Amputated toe of right foot ([facility]) Diabetic polyneuropathy associated with type 2 diabetes mellitus ([facility]) [facility] Diagnosis Spinal stenosis, lumbar region, without neurogenic claudication- Primary Primary osteoarthritis of both knees Primary localized osteoarthrosis, lower leg [facility] Diagnosis Spinal stenosis, lumbar region, without neurogenic claudication- Primary Primary osteoarthritis of both knees Primary localized osteoarthrosis, lower leg [facility] Diagnosis Spinal stenosis, lumbar region, without neurogenic claudication- Primary Primary osteoarthritis of both knees Primary localized osteoarthrosis, lower leg [facility] Diagnosis Spinal stenosis, lumbar region, without neurogenic claudication- Primary Primary osteoarthritis of both knees Primary localized osteoarthrosis, lower leg [facility] Diagnosis Spinal stenosis, lumbar region, without neurogenic claudication- Primary Primary osteoarthritis of both knees Primary localized osteoarthrosis, lower leg [facility] Diagnosis Spinal stenosis, lumbar region, without neurogenic claudication- Primary Primary osteoarthritis of both knees Primary localized osteoarthrosis, lower leg [facility] Narrative No data available for this section [facility] Hospital Discharge instructions No data available for this section [facility] Progress note No data available for this section [facility] Reason for referral (narrative)* Outpatient Procedure (Routine) - Closed Specialty Diagnoses / Procedures Referred By Contac t Referred To Contact [facility] Diagnoses Colon cancer screening Procedures COLONOSCOPY SCREENING COLONOSCOPY FLX DX W/COLLJ SPEC WHEN PFMarcella Cho PA-C [address] [place] [address] [facility] [place] [address] [phone] Referral ID Status Reason Start Date Expiration Date V isits Requested Visits Authorized [id number] Closed Auto-Generate d Referral 08/16/2021 08/16/2022 1 1 [facility] for referral (narrative)* Outpatient Procedure (Routine) - Closed Specialty Diagnoses / Procedures Referred By Contac t Referred To Contact [facility] Diagnoses Colon cancer screening Procedures COLONOSCOPY SCREENING COLONOSCOPY FLX DX W/COLLJ SPEC WHEN Marcella Alatorre PA-C [address] [place] [address] [facility] [place] [address] [place] [id number] Referral ID Status Reason Start Date Expiration Date V isits Requested Visits Authorized [id number] Closed Auto-Generate d Referral 08/16/2021 08/16/2022 1 1 [facility] for visit Narrative* Outpatient Procedure (Routine) - Closed Specialty Diagnoses / Procedures Referred By Contac t Referred To Contact [facility] Diagnoses Colon cancer screening Procedures COLONOSCOPY SCREENING COLONOSCOPY FLX DX W/COLLJ SPEC WHEN PFMarcella Cho PA-C [address] [place] [address] [facility] [place] [address] [place] [phone] Referral ID Status Reason Start Date Expiration Date V isits Requested Visits Authorized [id number] Closed Auto-Generate d Referral 08/16/2021 08/16/2022 1 1 [facility]patient Procedure (Routine) - Closed Specialty Diagnoses / Procedures Referred By Linn carrillo Ref[facility] Diagnoses Chronic anticoagulation Thoracic aortic aneurysm without rupture (HCC) Status post aortic valve repair Procedures ECHO TTE W/DOPPLER, COMPLETE Justina Hadley, ALGEBRAIST.PRODUCT PLANNER [address] [place] [address] [facility] [address] [address] Referral ID Status Reason Start Date Expiration Date V isits Requested Visits Authorized [id number] Closed Auto-Generate d Referral 07/03/2021 07/03/2022 1 1 [facility] Advance Directives No Advanced Directives Records FoundDocuments on File Type Date Recorded 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 Advance Directive(s) 09/12/2021 7:14 AM Documents on File Type Date Recorded 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 Advance Directive(s) 09/12/2021 7:14 AM [...] Diagnoses Driving safety issue Procedures CONSULT TO BUSINESS SYSTEMS ARCHITECT OCCUPATIONAL THERAPY EVAL HIGH COMPLEX 60 MINS Tamie Kaur MD [address] [place] [address] [facility] [place] [address] [place] [id number] Referral ID Status Reason Start Date Expiration Date Visits Requested Visits Authorized [id number] Authorized PCP Requested Referral Auto-Generate d Referral 09/07/2022 09/07/2023 99 99 Specialty Diagnoses / Procedures Referred By Contac t Referred To Contact [facility] Diagnoses Polyneuropathy Procedures CONSULT TO PHYSICAL THERAPY PHYSICAL THERAPY EVALUATION HIGH COMPLEX 45 MINS Tamie Kaur MD [address] [place] [address] [facility] [address] [address] Referral ID Status Reason Start Date Expiration Date Visits Requested Visits Authorized [id number] Authorized PCP Requested Referral Auto-Generate d Referral 04/17/2022 04/17/2023 99 99 Specialty Diagnoses / Procedures Referred By Contac t Referred To Contact Psychology Diagnoses Generalized anxiety disorder Procedures CONSULT TO PSYCHOLOGY OFFICE/OUTPATIENT [facility] 60-74 MINUTES Tamie Kaur MD [address] [phone] Referral ID Status Reason Start Date Expiration Date Visits Requested Visits Authorized [id number] Pending Review PCP Requested Referral 04/17/2022 04/17/2023 1 1 Specialty Diagnoses / Procedures Referred By Contac t Referred To Contact Podiatry Diagnoses Type 2 diabetes mellitus with diabetic neuropathy, with long-term current use of insulin (HCC) Procedures CONSULT TO PODIATRY OFFICE/OUTPATIENT [facility] 60-74 MINUTES PodlogRoselia hernandez APRN.PRODUCT PLANNER [address] [place] [address] Referral ID Status Reason Start Date Expiration Date Visits Requested Visits Authorized [id number] Authorized PCP Requested Referral 01/12/2022 01/11/2023 1 1 Specialty Diagnoses / Procedures Referred By Contac t Referred To Contact [facility] Diagnoses Altered mental status, unspecified altered mental status type Procedures CONSULT TO SPEECH THERAPY OFFICE/OUTPATIENT [facility] 60-74 MINUTES Tamie Kaur MD [address] [place] [address] [facility] [address] [address] Referral ID Status Reason Start Date Expiration Date Visits Requested Visits Authorized [id number] Authorized Auto-Generat ed Referral 01/05/2022 01/05/2023 99 99 Specialty Diagnoses / Procedures Referred By Contac t Referred To Contact [facility] Diagnoses Abnormality of gait due to impairment of balance Procedures CONSULT TO PHYSICAL THERAPY PHYSICAL THERAPY EVALUATION HIGH COMPLEX 45 MINS Tamie Kaur MD [address] [place] [address] [facility] [place] [address] Referral ID Status Reason Start Date Expiration Date Visits Requested Visits Authorized [id number] Authorized PCP Requested Referral Auto-Generate d Referral 01/05/2022 01/05/2023 99 99 Specialty Diagnoses / Procedures Referred By Contac t Referred To Contact [facility] Diagnoses Altered mental status, unspecified altered mental status type Procedures EPIL EEG ROUTINE ELECTROENCEPHALOGRAM REC COMA/SLEEP ONLY Tamie Kaur MD [address] [place] [address] [place] [address] Referral ID Status Reason Start Date Expiration Date Visits Requested Visits Authorized [id number] Authorized Auto-Generat ed Referral 01/05/2022 01/05/2023 1 1 Specialty Diagnoses / Procedures Referred By Contac t Referred To Contact Neurology Diagnoses Altered mental status, unspecified altered mental status type Procedures CONSULT TO NEUROLOGY OFFICE/OUTPATIENT [facility] MDM 60-74 MINUTES Abdulaziz Caldera MD [address] [place] [address] Referral ID Status Reason Start Date Expiration Date Visits Requested Visits Authorized [id number] Authorized PCP Requested Referral 01/01/2022 01/01/2023 1 [...] any alcohol or drug abuse patient.[facility] the event this information is protected by the Federal Confidentiality of Alcohol and Drug Abuse Patient Records regulations: The Federal rules restrict any use of the information to criminally investigate or prosecute any alcohol or drug abuse patient.[facility] the event this information is protected by the Federal Confidentiality of Alcohol and Drug Abuse Patient Records regulations: The Federal rules restrict any use of the information to criminally investigate or prosecute any alcohol or drug abuse patient.[facility] the event this information is protected by the Federal Confidentiality of Alcohol and Drug Abuse Patient Records regulations: The Federal rules restrict any use of the information to criminally investigate or prosecute any alcohol or drug abuse patient.[facility] the event this information is protected by the Federal Confidentiality of Alcohol and Drug Abuse Patient Records regulations: The Federal rules restrict any use of the information to criminally investigate or prosecute any alcohol or drug abuse patient.[facility] the event this information is protected by the Federal Confidentiality of Alcohol and Drug Abuse Patient Records regulations: The Federal rules restrict any use of the information to criminally investigate or prosecute any alcohol or drug abuse patient.[facility] the event this information is protected by the Federal Confidentiality of Alcohol and Drug Abuse Patient Records regulations: The Federal rules restrict any use of the information to criminally investigate or prosecute any alcohol or drug abuse patient.[facility] the event this information is protected by the Federal Confidentiality of Alcohol and Drug Abuse Patient Records regulations: The Federal rules restrict any use of the information to criminally investigate or prosecute any alcohol or drug abuse patient.[facility] the event this information is protected by the Federal Confidentiality of Alcohol and Drug Abuse Patient Records regulations: The Federal rules restrict any use of the information to criminally investigate or prosecute any alcohol or drug abuse patient.[facility] the event this information is protected by the Federal Confidentiality of Alcohol and Drug Abuse Patient Records regulations: The Federal rules restrict any use of the information to criminally investigate or prosecute any alcohol or drug abuse patient.[facility] the event this information is protected by the Federal Confidentiality of Alcohol and Drug Abuse Patient Records regulations: The Federal rules restrict any use of the information to criminally investigate or prosecute any alcohol or drug abuse patient.[facility] the event this information is protected by the Federal Confidentiality of Alcohol and Drug Abuse Patient Records regulations: The Federal rules restrict any use of the information to criminally investigate or prosecute any alcohol or drug abuse patient.[facility] the event this information is protected by the Federal Confidentiality of Alcohol and Drug Abuse Patient Records regulations: The Federal rules restrict any use of the information to criminally investigate or prosecute any alcohol or drug abuse patient.[facility] the event this information is protected by the Federal Confidentiality of Alcohol and Drug Abuse Patient Records regulations: The Federal rules restrict any use of the information to criminally investigate or prosecute any alcohol or drug abuse patient.[facility]In the event this information is protected by the Federal Confidentiality of Alcohol and Drug Abuse Patient Records regulations: The Federal rules restrict any use of the information to criminally investigate or prosecute any alcohol or drug abuse patient.[facility]In the event this information is protected by the Federal Confidentiality of Alcohol and Drug Abuse Patient Records regulations: The Federal rules restrict any use of the information to criminally investigate or prosecute any alcohol or drug abuse patient.[facility]In the event this information is protected by the Federal Confidentiality of Alcohol and Drug Abuse Patient Records regulations: The Federal rules restrict any use of the information to criminally investigate or prosecute any alcohol or drug abuse patient.[facility]In the event this information is protected by the Federal Confidentiality of Alcohol and Drug Abuse Patient Records regulations: The Federal rules restrict any use of the information to criminally investigate or prosecute any alcohol or drug abuse patient.[facility]In the event this information is protected by the Federal Confidentiality of Alcohol and Drug Abuse Patient Records regulations: The Federal rules restrict any use of the information to criminally investigate or prosecute any alcohol or drug abuse patient.[facility]In the event this information is protected by the Federal Confidentiality of Alcohol and Drug Abuse Patient Records regulations: The Federal rules restrict any use of the information to criminally investigate or prosecute any alcohol or drug abuse patient.[facility]In the event this information is protected by the Federal Confidentiality of Alcohol and Drug Abuse Patient Records regulations: The Federal rules restrict any use of the information to criminally investigate or prosecute any alcohol or drug abuse patient.[facility]In the event this information is protected by the Federal Confidentiality of Alcohol and Drug Abuse Patient Records regulations: The Federal rules restrict any use of the information to criminally investigate or prosecute any alcohol or drug abuse patient.[facility]In the event this information is protected by the Federal Confidentiality of Alcohol and Drug Abuse Patient Records regulations: The Federal rules restrict any use of the information to criminally investigate or prosecute any alcohol or drug abuse patient.[facility]In the event this information is protected by the Federal Confidentiality of Alcohol and Drug Abuse Patient Records regulations: The Federal rules restrict any use of the information to criminally investigate or prosecute any alcohol or drug abuse patient.[facility]In the event this information is protected by the Federal Confidentiality of Alcohol and Drug Abuse Patient Records regulations: The Federal rules restrict any use of the information to criminally investigate or prosecute any alcohol or drug abuse patient.[facility]In the event this information is protected by the Federal Confidentiality of Alcohol and Drug Abuse Patient Records regulations: The Federal rules restrict any use of the information to criminally investigate or prosecute any alcohol or drug abuse patient.[facility]In the event this information is protected by the Federal Confidentiality of Alcohol and Drug Abuse Patient Records regulations: The Federal rules restrict any use of the information to criminally investigate or prosecute any alcohol or drug abuse patient.[facility]In the event this information is protected by the Federal Confidentiality of Alcohol and Drug Abuse Patient Records regulations: The Federal rules restrict any use of the information to criminally investigate or prosecute any alcohol or drug abuse patient.[facility]In the event this information is protected by the Federal Confidentiality of Alcohol and Drug Abuse Patient Records regulations: The Federal rules restrict any use of the information to criminally investigate or prosecute any alcohol or drug abuse patient.[facility]In the event this information is protected by the Federal Confidentiality of Alcohol and Drug Abuse Patient Records regulations: The Federal rules restrict any use of the information to criminally investigate or prosecute any alcohol or drug abuse patient.[facility]In the event this information is protected by the Federal Confidentiality of Alcohol and Drug Abuse Patient Records regulations: The Federal rules restrict any use of the information to criminally investigate or prosecute any alcohol or drug abuse patient.[facility]In the event this information is protected by the Federal Confidentiality of Alcohol and Drug Abuse Patient Records regulations: The Federal rules restrict any use of the information to criminally investigate or prosecute any alcohol or drug abuse patient.[facility]In the event this information is protected by the Federal Confidentiality of Alcohol and Drug Abuse Patient Records regulations: The Federal rules restrict any use of the information to criminally investigate or prosecute any alcohol or drug abuse patient.[facility]In the event this information is protected by the Federal Confidentiality of Alcohol and Drug Abuse Patient Records regulations: The Federal rules restrict any use of the information to criminally investigate or prosecute any alcohol or drug abuse patient.[facility]In the event this information is protected by the Federal Confidentiality of Alcohol and Drug Abuse Patient Records regulations: The Federal rules restrict any use of the information to criminally investigate or prosecute any alcohol or drug abuse patient.[facility]In the event this information is protected by the Federal Confidentiality of Alcohol and Drug Abuse Patient Records regulations: The Federal rules restrict any use of the information to criminally investigate or prosecute any alcohol or drug abuse patient.[facility]In the event this information is protected by the Federal Confidentiality of Alcohol and Drug Abuse Patient Records regulations: The Federal rules restrict any use of the information to criminally investigate or prosecute any alcohol or drug abuse patient.[facility]In the event this information is protected by the Federal Confidentiality of Alcohol and Drug Abuse Patient Records regulations: The Federal rules restrict any use of the information to criminally investigate or prosecute any alcohol or drug abuse patient.[facility]In the event this information is protected by the Federal Confidentiality of Alcohol and Drug Abuse Patient Records regulations: The Federal rules restrict any use of the information to criminally investigate or prosecute any alcohol or drug abuse patient.[facility]In the event this information is protected by the Federal Confidentiality of Alcohol and Drug Abuse Patient Records regulations: The Federal rules restrict any use of the information to criminally investigate or prosecute any alcohol or drug abuse patient.[facility]In the event this information is protected by the Federal Confidentiality of Alcohol and Drug Abuse Patient Records regulations: The Federal rules restrict any use of the information to criminally investigate or prosecute any alcohol or drug abuse patient.[facility]In the event this information is protected by the Federal Confidentiality of Alcohol and Drug Abuse Patient Records regulations: The Federal rules restrict any use of the information to criminally investigate or prosecute any alcohol or drug abuse patient.[facility]In the event this information is protected by the Federal Confidentiality of Alcohol and Drug Abuse Patient Records regulations: The Federal rules restrict any use of the information to criminally investigate or prosecute any alcohol or drug abuse patient.[facility]In the event this information is protected by the Federal Confidentiality of Alcohol and Drug Abuse Patient Records regulations: The Federal rules restrict any use of the information to criminally investigate or prosecute any alcohol or drug abuse patient.[facility]In the event this information is protected by the Federal Confidentiality of Alcohol and Drug Abuse Patient Records regulations: The Federal rules restrict any use of the information to criminally investigate or prosecute any alcohol or drug abuse patient.[facility]In the event this information is protected by the Federal Confidentiality of Alcohol and Drug Abuse Patient Records regulations: The Federal rules restrict any use of the information to criminally investigate or prosecute any alcohol or drug abuse patient.[facility]In the event this information is protected by the Federal Confidentiality of Alcohol and Drug Abuse Patient Records regulations: The Federal rules restrict any use of the information to criminally investigate or prosecute any alcohol or drug abuse patient.[facility]In the event this information is protected by the Federal Confidentiality of Alcohol and Drug Abuse Patient Records regulations: The Federal rules restrict any use of the information to criminally investigate or prosecute any alcohol or drug abuse patient.[facility] HospitalIn the event this information is protected by the Federal Confidentiality of Alcohol and Drug Abuse Patient Records regulations: The Federal rules restrict any use of the information to criminally investigate or prosecute any alcohol or drug abuse patient.[facility] HospitalIn the event this information is protected by the Federal Confidentiality of Alcohol and Drug Abuse Patient Records regulations: The Federal rules restrict any use of the information to criminally investigate or prosecute any alcohol or drug abuse patient.[facility] HospitalIn the event this information is protected by the Federal Confidentiality of Alcohol and Drug Abuse Patient Records regulations: The Federal rules restrict any use of the information to criminally investigate or prosecute any alcohol or drug abuse patient.[facility] HospitalIn the event this information is protected by the Federal Confidentiality of Alcohol and Drug Abuse Patient Records regulations: The Federal rules restrict any use of the information to criminally investigate or prosecute any alcohol or drug abuse patient.[facility] HospitalIn the event this information is protected by the Federal Confidentiality of Alcohol and Drug Abuse Patient Records regulations: The Federal rules restrict any use of the information to criminally investigate or prosecute any alcohol or drug abuse patient.[facility] HospitalIn the event this information is protected by the Federal Confidentiality of Alcohol and Drug Abuse Patient Records regulations: The Federal rules restrict any use of the information to criminally investigate or prosecute any alcohol or drug abuse patient.[facility] HospitalIn the event this information is protected by the Federal Confidentiality of Alcohol and Drug Abuse Patient Records regulations: The Federal rules restrict any use of the information to criminally investigate or prosecute any alcohol or drug abuse patient.[facility] HospitalIn the event this information is protected by the Federal Confidentiality of Alcohol and Drug Abuse Patient Records regulations: The Federal rules restrict any use of the information to criminally investigate or prosecute any alcohol or drug abuse patient.[facility] HospitalIn the event this information is protected by the Federal Confidentiality of Alcohol and Drug Abuse Patient Records regulations: The Federal rules restrict any use of the information to criminally investigate or prosecute any alcohol or drug abuse patient.[facility] HospitalIn the event this information is protected by the Federal Confidentiality of Alcohol and Drug Abuse Patient Records regulations: The Federal rules restrict any use of the information to criminally investigate or prosecute any alcohol or drug abuse patient.[facility] HospitalIn the event this information is protected by the Federal Confidentiality of Alcohol and Drug Abuse Patient Records regulations: The Federal rules restrict any use of the information to criminally investigate or prosecute any alcohol or drug abuse patient.[facility] HospitalIn the event this information is protected by the Federal Confidentiality of Alcohol and Drug Abuse Patient Records regulations: The Federal rules restrict any use of the information to criminally investigate or prosecute any alcohol or drug abuse patient.[facility] HospitalIn the event this information is protected by the Federal Confidentiality of Alcohol and Drug Abuse Patient Records regulations: The Federal rules restrict any use of the information to criminally investigate or prosecute any alcohol or drug abuse patient.[facility] HospitalIn the event this information is protected by the Federal Confidentiality of Alcohol and Drug Abuse Patient Records regulations: The Federal rules restrict any use of the information to criminally investigate or prosecute any alcohol or drug abuse patient.[facility] HospitalIn the event this information is protected by the Federal Confidentiality of Alcohol and Drug Abuse Patient Records regulations: The Federal rules restrict any use of the information to criminally investigate or prosecute any alcohol or drug abuse patient.[facility] HospitalIn the event this information is protected by the Federal Confidentiality of Alcohol and Drug Abuse Patient Records regulations: The Federal rules restrict any use of the information to criminally investigate or prosecute any alcohol or drug abuse patient.[facility] HospitalIn the event this information is protected by the Federal Confidentiality of Alcohol and Drug Abuse Patient Records regulations: The Federal rules restrict any use of the information to criminally investigate or prosecute any alcohol or drug abuse patient.[facility] HospitalIn the event this information is protected by the Federal Confidentiality of Alcohol and Drug Abuse Patient Records regulations: The Federal rules restrict any use of the information to criminally investigate or prosecute any alcohol or drug abuse patient.[facility] HospitalIn the event this information is protected by the Federal Confidentiality of Alcohol and Drug Abuse Patient Records regulations: The Federal rules restrict any use of the information to criminally investigate or prosecute any alcohol or drug abuse patient.[facility] HospitalIn the event this information is protected by the Federal Confidentiality of Alcohol and Drug Abuse Patient Records regulations: The Federal rules restrict any use of the information to criminally investigate or prosecute any alcohol or drug abuse patient.[facility] HospitalIn the event this information is protected by the Federal Confidentiality of Alcohol and Drug Abuse Patient Records regulations: The Federal rules restrict any use of the information to criminally investigate or prosecute any alcohol or drug abuse patient.[facility] HospitalIn the event this information is protected by the Federal Confidentiality of Alcohol and Drug Abuse Patient Records regulations: The Federal rules restrict any use of the information to criminally investigate or prosecute any alcohol or drug abuse patient.[facility] HospitalIn the event this information is protected by the Federal Confidentiality of Alcohol and Drug Abuse Patient Records regulations: The Federal rules restrict any use of the information to criminally investigate or prosecute any alcohol or drug abuse patient.[facility] HospitalIn the event this information is protected by the Federal Confidentiality of Alcohol and Drug Abuse Patient Records regulations: The Federal rules restrict any use of the information to criminally investigate or prosecute any alcohol or drug abuse patient.[facility] HospitalIn the event this information is protected by the Federal Confidentiality of Alcohol and Drug Abuse Patient Records regulations: The Federal rules restrict any use of the information to criminally investigate or prosecute any alcohol or drug abuse patient.[facility] HospitalIn the event this information is protected by the Federal Confidentiality of Alcohol and Drug Abuse Patient Records regulations: The Federal rules restrict any use of the information to criminally investigate or prosecute any alcohol or drug abuse patient.[facility] HospitalIn the event this information is protected by the Federal Confidentiality of Alcohol and Drug Abuse Patient Records regulations: The Federal rules restrict any use of the information to criminally investigate or prosecute any alcohol or drug abuse patient.[facility] HospitalIn the event this information is protected by the Federal Confidentiality of Alcohol and Drug Abuse Patient Records regulations: The Federal rules restrict any use of the information to criminally investigate or prosecute any alcohol or drug abuse patient.[facility] HospitalIn the event this information is protected by the Federal Confidentiality of Alcohol and Drug Abuse Patient Records regulations: The Federal rules restrict any use of the information to criminally investigate or prosecute any alcohol or drug abuse patient.[facility] HospitalIn the event this information is protected by the Federal Confidentiality of Alcohol and Drug Abuse Patient Records regulations: The Federal rules restrict any use of the information to criminally investigate or prosecute any alcohol or drug abuse patient.[facility] HospitalIn the event this information is protected by the Federal Confidentiality of Alcohol and Drug Abuse Patient Records regulations: The Federal rules restrict any use of the information to criminally investigate or prosecute any alcohol or drug abuse patient.[facility] Reason for Visit (unrecogniz ed section and content) Specialty Diagnoses / Procedures Referred By Linn carrillo Referred To Contact [facility] Diagnoses Abnormality of gait due to impairment of balance Procedures CONSULT TO PHYSICAL THERAPY PHYSICAL THERAPY EVALUATION HIGH COMPLEX 45 MINS Tamie Kaur MD [address] [place] [address] [facility] [address] [address] Referral ID Status Reason Start Date Expiration Date Visits Requested Visits Authorized [id number] Authorized PCP Requested Referral Auto-Generate d Referral [...] 6 mo Reason Comments Hospital Follow Up [facility] discharged Reason Comments Results Reason Comments Consult altered mental statu s Specialty Diagnoses / Procedures Referred By Linn carrillo Referred To Contact Neurology Diagnoses Altered mental status, unspecified altered mental status type Procedures CONSULT TO NEUROLOGY OFFICE/OUTPATIENT [facility] MDM 60-74 MINUTES Abdulaziz Caldera MD [address] [place] [address] Referral ID Status Reason Start Date Expiration Date V isits Requested Visits Authorized [id number] Closed PCP Requested Referral 01/01/2022 01/01/2023 1 [...] Nursing Plan of Care Update Reason Comments [facility] PT POC Reason Comments OT plan of care Reason Onset Date Comments Refill Request 07/25/2022 Reason Comments Home Health-Nursing Update Reason Onset Date Comments Anticoagulation 07/31/2022 Specialty Diagnoses / Procedures Referred By Linn carrillo Referred To Contact Ent - Otolaryngology Diagnoses Chronic frontal sinusitis Procedures CONSULT TO ENT OFFICE/OUTPATIENT NEW HIGH MDM 60-74 MINUTES Abdulaziz Caldera MD [address] [place] [address] Referral ID Status Reason Start Date Expiration Date V isits Requested Visits Authorized [id number] Closed PCP Requested Referral 07/12/2022 07/12/2023 1 [...] Care Teams (unrecognized sec tion and content) Transportation Assistant Relationship Specialty Start Date End Date Abdulaziz Caldera MD [address] [place] [address] PCP - General Family Practice 11/23/20 Transportation Assistant Relationship Specialty Start Date End Date Abdulaziz Caldera MD [address] [place] [address] PCP - General Family Practice 11/23/20 Transportation Assistant Relationship Specialty Start Date End Date Abdulaziz Caldera MD [address] [place] [address] PCP - General Family Practice 11/23/20 Transportation Assistant Relationship Specialty Start Date End Date Abdulaziz Caldera MD [address] [place] [address] PCP - General Family Practice 11/23/20 Transportation Assistant Relationship Specialty Start Date End Date Abdulaziz Caldera MD [facility] [place] [address] PCP - General Family Practice 11/23/20 Transportation Assistant Relationship Specialty Start Date End Date Abdulaziz Caldera MD [address] [place] [address] PCP - General Family Practice 11/23/20 Transportation Assistant Relationship Specialty Start Date End Date Abdulaziz Caldera MD [address] [place] [address] PCP - General Family Practice 11/23/20 Transportation Assistant Relationship Specialty Start Date End Date Abdulaziz Caldera MD [address] [place] [address] PCP - General Family Practice 11/23/20 Transportation Assistant Relationship Specialty Start Date End Date Abdulaziz Caldera MD [address] [place] [address] PCP - General Family Practice 11/23/20 Transportation Assistant Relationship Specialty Start Date End Date Abdulaziz Caldera MD [address] [place] [address] PCP - General Family Practice 11/23/20 Transportation Assistant Relationship Specialty Start Date End Date Abdulaziz Caldera MD [address] [place] [address] PCP - General Family Practice 11/23/20 Transportation Assistant Relationship Specialty Start Date End Date Abdulaziz Caldera MD [address] [place] [address] PCP - General Family Practice 11/23/20 Transportation Assistant Relationship Specialty Start Date End Date Abdulaziz Caldera MD [address] [place] [address] PCP - General Family Practice 11/23/20 Transportation Assistant Relationship Specialty Start Date End Date Abdulaziz Caldera MD [address] [place] [address] PCP - General Family Practice 11/23/20 Transportation Assistant Relationship Specialty Start Date End Date Abdulaziz Caldera MD [address] [place] [address] PCP - General Family Practice 11/23/20 Transportation Assistant Relationship Specialty Start Date End Date Abdulaziz Caldera MD [address] [place] [address] PCP - General Family Practice 11/23/20 Transportation Assistant Relationship Specialty Start Date End Date Abdulaziz Caldera MD [address] [place] [address] PCP - General Family Practice 11/23/20 Transportation Assistant Relationship Specialty Start Date End Date Abdulaziz Caldera MD [address] [place] [address] PCP - General Family Practice 11/23/20 Transportation Assistant Relationship Specialty Start Date End Date Abdulaziz Caldera MD [address] [place] [address] PCP - General Family Practice 11/23/20 Transportation Assistant Relationship Specialty Start Date End Date Abdulaziz Caldera MD [address] [place] [address] PCP - General Family Practice 11/23/20 Transportation Assistant Relationship Specialty Start Date End Date Abdulaziz Caldera MD [address] [place] [address] PCP - General Family Practice 11/23/20 Transportation Assistant Relationship Specialty Start Date End Date Abdulaziz Caldera MD [address] [place] [address] PCP - General Family Medicine 11/23/20 Transportation Assistant Relationship Specialty Start Date End Date Abdulaziz Caldera MD [address] [place] [address] PCP - General Family Medicine 11/23/20 Transportation Assistant Relationship Specialty Start Date End Date Abdulaziz Caldera MD [address] [place] [address] PCP - General Family Medicine 11/23/20 Transportation Assistant Relationship Specialty Start Date End Date Abdulaziz Caldera MD [address] [place] [address] PCP - General Family Medicine 11/23/20 Transportation Assistant Relationship Specialty Start Date End Date Abdulaziz Caldera MD [address] [place] [address] PCP - General Family Medicine 11/23/20 Transportation Assistant Relationship Specialty Start Date End Date Abdulaziz Caldera MD [address] [place] [address] PCP - General Family Medicine 11/23/20 Transportation Assistant Relationship Specialty Start Date End Date Abdulaziz Caldera MD [address] [place] [address] PCP - General Family Medicine 11/23/20 Transportation Assistant Relationship Specialty Start Date End Date Abdulaziz Caldera MD [address] [place] [address] PCP - General Family Medicine 11/23/20 Transportation Assistant Relationship Specialty Start Date End Date Abdulaziz Caldera MD [address] [place] [address] PCP - General Family Medicine 11/23/20 Transportation Assistant Relationship Specialty Start Date End Date Abdulaziz Caldera MD [address] [place] [address] PCP - General Family Medicine 11/23/20 Transportation Assistant Relationship Specialty Start Date End Date Abdulaziz Caldera MD [address] [place] [address] PCP - General Family Medicine 11/23/20 Transportation Assistant Relationship Specialty Start Date End Date Abdulaziz Caldera MD [address] [place] [address] PCP - General Family Medicine 11/23/20 Transportation Assistant Relationship Specialty Start Date End Date Abdulaziz Caldera MD [address] [place] [address] PCP - General Family Medicine 11/23/20 Transportation Assistant Relationship Specialty Start Date End Date Abdulaziz Caldera MD [address] [place] [address] PCP - General Family Medicine 11/23/20 Transportation Assistant Relationship Specialty Start Date End Date Abdulaziz Caldera MD [address] [place] [address] PCP - General Family Medicine 11/23/20 Transportation Assistant Relationship Specialty Start Date End Date Abdulaziz Caldera MD [address] [place] [address] PCP - General Family Medicine 11/23/20 Transportation Assistant Relationship Specialty Start Date End Date Abdulaziz Caldera MD [address] [place] [address] PCP - General Family Medicine 11/23/20 Transportation Assistant Relationship Specialty Start Date End Date Abdulaziz Caldera MD [address] [place] [address] PCP - General Family Medicine 11/23/20 Transportation Assistant Relationship Specialty Start Date End Date Abdulaziz Caldera MD [address] [place] [address] PCP - General Family Medicine 11/23/20 Transportation Assistant Relationship Specialty Start Date End Date Abdulaziz Caldera MD [address] [place] [address] PCP - General Family Medicine 11/23/20 Transportation Assistant Relationship Specialty Start Date End Date Abdulaziz Caldera MD [address] [place] [address] PCP - General Family Medicine 11/23/20 (unrecognized sect ion and content) No Status Records FoundNo Status Records FoundNo Status Records FoundNo Status Records Found INFORMATION SOURCE (unrecogn ized section and content) DATE CREATED AUTHOR AUTHOR'S ORGANIZ ATION 02/04/2022 [facility] DATE CREATED AUTHOR AUTHOR'S ORGANIZ ATION 04/19/2022 [facility] ([place]) DATE CREATED AUTHOR AUTHOR'S DESTINY ATION 05/30/2023 [facility] FOR RECORDS PERTAINING TO PATIENTS [...] BE BASED ON THE PRIMARY CLINICAL RECORDS. [facility] provides no warranty or guarantee of the accuracy or completeness of information in this document.
[2023-09-13 08:02] LABS: INR Fingerstick 3.1; Prothrombin Time Fingerstick 33.3 SEC (11.7-14.9)
== END ==
LOC: OLS.ACH 05:00
PROVIDERS: PCP Family Medicine; Visit Provider Internal Medicine
DX: Z79.01 Long term (current) use of anticoagulants (principal)
CPT/HCPCS: 36416; 85610

== ENCOUNTER → 2023-09-18 | Outpatient (REF) | payer MEDICARE, OTHER, SELFPAY ==
--- OUTSIDE RECORDS SUMMARY | 2023-09-18 03:49 | XMS RPT_ITS | CCD ---
Author Name Unknown Address [address] [place] [address] Organization [facility] Care Team Providers Care Cloth Dyer Name Role Phone Abdulaziz Caldera MD Primary [...] Referring Unavailab ABDULAZIZ Zuniga Primary Care Unavailab ABUDLAZIZ Zuniga Referring Unavailab ABDULAZIZ Zuniga Primary Care [...] pantoprazole; Translations: [PANTOPRAZOLE] Drug Allergy 03-12-2020 Diarrhea [facility] Medications Current Medications Medication Drug Class(es) [...] Coronary atherosclerosis; Translations: [Atherosclerotic heart disease of [place] coronary artery without angina pectoris] Chronic Diabetes [...] sources) Long-term current use of anticoagulant; Translations: [group home (current) use of anticoagulants] Onset: 05-07-2018 11-06-2018 Episodic Other aftercare (1 source) 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; Translations: [Chronic anticoagulation] Onset: 11-06-2018 Episodic Other aftercare (1 source) group home (current) use of insulin; Translations: [Type [...] Results Test Name Value Interpretation Reference Range [facility] it Vital Signs Date Time Vital Sign Value Performing Clinician Scott quinn 09-07-2022 11:01-0500 Body height 185.4 cm Tamie Kaur MD Work Phone: [facility] 09-07-2022 11:01-0500 Body weight 113.4 kg Tamie Kaur MD Work Phone: [facility] 09-07-2022 11:01-0500 Diastolic blood pressure 57 mm[Hg] Tamie Kaur MD Work Phone: [facility] 09-07-2022 11:01-0500 Heart rate 64 /min Tamie Kaur MD Work Phone: [facility] 09-07-2022 11:01-0500 Respiratory rate 16 /min Tamie Kaur MD Work Phone: [facility] 09-07-2022 11:01-0500 SaO2% (BldA) [Mass fraction] 99 % Tamie Kaur MD Work Phone: [facility] 09-07-2022 11:01-0500 Systolic blood pressure 124 mm[Hg] Tamie Kaur MD Work Phone: [facility] 08-09-2022 16:35-0500 Body weight 113.4 kg Abdulaziz Caldera MD Work Phone: [facility] 08-09-2022 16:35-0500 Diastolic blood pressure 62 mm[Hg] Abdulaziz Caldera MD Work Phone: [facility] 08-09-2022 16:35-0500 Heart rate 64 /min Abdulaziz Caldera MD Work Phone: [facility] 08-09-2022 16:35-0500 Respiratory rate 16 /min Abdulaziz Caldera MD Work Phone: [facility] 08-09-2022 16:35-0500 SaO2% (BldA) [Mass fraction] 96 % Abdulaziz Caldera MD Work Phone: [facility] 08-09-2022 16:35-0500 Systolic blood pressure 112 mm[Hg] Abdulaziz Caldera MD Work Phone: [facility] 04-17-2022 11:23-0400 Body height 185.4 cm Tamie Kaur MD Work Phone: [facility] 04-17-2022 11:23-0400 Body weight 114.31 kg Tamie Kaur MD Work Phone: [facility] 04-17-2022 11:23-0400 Diastolic blood pressure 71 mm[Hg] Tamie Kaur MD Work Phone: [facility] 04-17-2022 11:23-0400 Heart rate 72 /min Tamie Kaur MD Work Phone: [facility] 04-17-2022 11:23-0400 Respiratory rate 18 /min Tamie Kaur MD Work Phone: [facility] 04-17-2022 11:23-0400 SaO2% (BldA) [Mass fraction] 98 % Tamie Kaur MD Work Phone: [facility] 04-17-2022 11:23-0400 Systolic blood pressure 116 mm[Hg] Tamie Kaur MD Work Phone: [facility] 04-16-2022 13:09-0400 Body height 185.4 cm Abdulaziz Caldera MD Work Phone: [facility] 04-16-2022 13:09-0400 Body weight 114.31 kg Abdulaziz Caldera MD Work Phone: [facility] 04-16-2022 13:09-0400 Diastolic blood pressure 72 mm[Hg] Abdulaziz Caldera MD Work Phone: [facility] 04-16-2022 13:09-0400 Heart rate 70 /min Abdulaziz Caldera MD Work Phone: [facility] 04-16-2022 13:09-0400 Respiratory rate 16 /min Abdulaziz Caldera MD Work Phone: [facility] 04-16-2022 13:09-0400 SaO2% (BldA) [Mass fraction] 98 % Abdulaziz Caldera MD Work Phone: [facility] 04-16-2022 13:09-0400 Systolic blood pressure 132 mm[Hg] Abdulaziz Caldera MD Work Phone: [facility] 04-06-2022 09:36-0400 Body weight 114.31 kg Roselia Madrigal ROOM MANAGER.TIME STUDY OBSERVER Work Phone: [facility] 04-06-2022 09:36-0400 Diastolic blood pressure 62 mm[Hg] Roselia Podlogar ROOM MANAGER.TIME STUDY OBSERVER Work Phone: [facility] 04-06-2022 09:36-0400 Heart rate 62 /min Roselia Podlogar ROOM MANAGER.TIME STUDY OBSERVER Work Phone: [facility] 04-06-2022 09:36-0400 Respiratory rate 16 /min Roselia Podlogar ROOM MANAGER.TIME STUDY OBSERVER Work Phone: [facility] 04-06-2022 09:36-0400 SaO2% (BldA) [Mass fraction] 97 % Roselia Podlogar ROOM MANAGER.TIME STUDY OBSERVER Work Phone: [facility] 04-06-2022 09:36-0400 Systolic blood pressure 112 mm[Hg] Roselia Podlogar ROOM MANAGER.TIME STUDY OBSERVER Work Phone: [facility] 03-07-2022 11:12-0400 Body weight 114.76 kg Abdulaziz Caldera MD Work Phone: [facility] 03-07-2022 11:12-0400 Diastolic blood pressure 70 mm[Hg] Abdulaziz Caldera MD Work Phone: [facility] 03-07-2022 11:12-0400 Heart rate 64 /min Abdulaziz Caldera MD Work Phone: [facility] 03-07-2022 11:12-0400 Respiratory rate 16 /min Abdulaziz Caldera MD Work Phone: [facility] 03-07-2022 11:12-0400 Systolic blood pressure 118 mm[Hg] Abdulaziz Caldera MD Work Phone: [facility] 03-05-2022 12:00-0400 Diastolic blood pressure 60 mm[Hg] Rosa Elena Lemon PT [facility] 03-05-2022 12:00-0400 Systolic blood pressure 112 mm[Hg] Rosa Elena Lemon PT [facility] 01-12-2022 08:00-0400 Diastolic blood pressure 78 mm[Hg] Rosa Elena Lemon PT [facility] 01-12-2022 08:00-0400 Systolic blood pressure 130 mm[Hg] Rosa Elena Lemon PT [facility] 01-05-2022 09:56-0400 Body height 185.4 cm Tamie Kaur MD Work Phone: [facility] 01-05-2022 09:56-0400 Body weight 111.58 kg Tamie Kaur MD Work Phone: [facility] 01-05-2022 09:56-0400 Diastolic blood pressure 62 mm[Hg] Tamie Kaur MD Work Phone: [facility] 01-05-2022 09:56-0400 Heart rate 58 /min Tamie Kaur MD Work Phone: [facility] 01-05-2022 09:56-0400 Respiratory rate 16 /min Tamie Kaur MD Work Phone: [facility] 01-05-2022 09:56-0400 SaO2% (BldA) [Mass fraction] 97 % Tamie Kaur MD Work Phone: [facility] 01-05-2022 09:56-0400 Systolic blood pressure 117 mm[Hg] Tamie Kaur MD Work Phone: [facility] 01-01-2022 10:12-0400 Body temperature 97.39 [degF] Abdulaziz Caldera MD Work Phone: [facility] 01-01-2022 10:12-0400 Body weight 111.77 kg Abdulaziz Caldera MD Work Phone: [facility] 01-01-2022 10:12-0400 Diastolic blood pressure 64 mm[Hg] Abdulaziz Caldera MD Work Phone: [facility] 01-01-2022 10:12-0400 Heart rate 47 /min Abdulaziz Caldera MD Work Phone: [facility] 01-01-2022 10:12-0400 Respiratory rate 18 /min Abdulaziz Caldera MD Work Phone: [facility] 01-01-2022 10:12-0400 SaO2% (BldA) [Mass fraction] 98 % Abdulaziz Caldera MD Work Phone: [facility] 01-01-2022 10:12-0400 Systolic blood pressure 112 mm[Hg] Abdulaziz Caldera MD Work Phone: [facility] 01-01-2022 08:55-0400 Body weight 112.49 kg Justina Leonie ROOM MANAGER.TIME STUDY OBSERVER Work Phone: [facility] 01-01-2022 08:55-0400 Diastolic blood pressure 74 mm[Hg] Justina Leonie ROOM MANAGER.TIME STUDY OBSERVER Work Phone: [facility] 01-01-2022 08:55-0400 Heart rate 60 /min Justina Leonie ROOM MANAGER.TIME STUDY OBSERVER Work Phone: [facility] 01-01-2022 08:55-0400 Respiratory rate 18 /min Justina Leonie ROOM MANAGER.TIME STUDY OBSERVER Work Phone: [facility] 01-01-2022 08:55-0400 Systolic blood pressure 147 mm[Hg] Justina Leonie ROOM MANAGER.TIME STUDY OBSERVER Work Phone: [facility] 12-27-2021 21:22-0400 Diastolic blood pressure 71 mm[Hg] DR MELANIA WORKMAN MD [facility] 12-27-2021 21:22-0400 Heart rate 73 /min DR MELANIA WORKMAN MD [facility] 12-27-2021 21:22-0400 Respiratory rate 24 /min DR MELANIA WORKMAN MD [facility] 12-27-2021 21:22-0400 Systolic blood pressure 121 mm[Hg] DR MELANIA WORKMAN MD [facility] 12-27-2021 20:06-0400 Diastolic blood pressure 59 mm[Hg] DR MELANIA WORKMAN MD [facility] 12-27-2021 20:06-0400 Heart rate 80 /min DR MELANIA WORKMAN MD [facility] 12-27-2021 20:06-0400 Respiratory rate 26 /min DR MELANIA WORKMAN MD [facility] 12-27-2021 20:06-0400 Systolic blood pressure 112 mm[Hg] DR MELANIA WORKMAN MD [facility] 12-27-2021 19:19-0400 Body temperature 98.6 [degF] DR MELANIA WORKMAN MD [facility] 12-27-2021 19:19-0400 Diastolic blood pressure 76 mm[Hg] DR MELANIA WORKMAN MD [facility] 12-27-2021 19:19-0400 Heart rate 82 /min DR MELANIA WORKMAN MD [facility] 12-27-2021 19:19-0400 Respiratory rate 26 /min DR MELANIA WORKMAN MD [facility] 12-27-2021 19:19-0400 Systolic blood pressure 138 mm[Hg] DR MELANIA WORKMAN MD [facility] 12-27-2021 17:36-0400 Body temperature 102.56 [degF] DR MELANIA WORKMAN MD [facility] 12-27-2021 17:36-0400 Body weight [address] MELANIA WORKMAN MD [facility] 12-27-2021 17:36-0400 Heart rate 104 /min DR MELANIA WORKMAN MD [facility] 12-14-2021 15:10-0400 Body temperature 98.2 [degF] Abdulaziz Caldera MD Work Phone: [facility] 12-14-2021 15:10-0400 Body weight 110.77 kg Abdulaziz Caldera MD Work Phone: [facility] 12-14-2021 15:10-0400 Diastolic blood pressure 70 mm[Hg] Abdulaziz Caldera MD Work Phone: [facility] 12-14-2021 15:10-0400 Heart rate 54 /min Abdulaziz Caldera MD Work Phone: [facility] 12-14-2021 15:10-0400 Respiratory rate 16 /min Abdulaziz Caldera MD Work Phone: [facility] 12-14-2021 15:10-0400 SaO2% (BldA) [Mass fraction] 96 % Abdulaziz Caldera MD Work Phone: [facility] 12-14-2021 15:10-0400 Systolic blood pressure 130 mm[Hg] Abdulaziz Caldera MD Work Phone: [facility] 12-08-2021 16:23-0400 Diastolic blood pressure 64 mm[Hg] Abdulaziz Caldera MD Work Phone: [facility] 12-08-2021 16:23-0400 Heart rate 85 /min Abdulaziz Caldera MD Work Phone: [facility] 12-08-2021 16:23-0400 Systolic blood pressure 110 mm[Hg] Abdulaziz Caldera MD Work Phone: [facility] 10-23-2021 13:05-0400 Body temperature 97.3 [degF] Marcella [place] PA-C Work Phone: [facility] 10-23-2021 13:05-0400 Body weight 114.58 kg Marcella [place] PA-C Work Phone: [facility] 10-23-2021 13:05-0400 Diastolic blood pressure 56 mm[Hg] Marcella Xavier PA-C Work Phone: [facility] 10-23-2021 13:05-0400 Heart rate 85 /min Marcella Xavier PA-C Work Phone: [facility] 10-23-2021 13:05-0400 SaO2% (BldA) [Mass fraction] 98 % Marcella [place] PA-C Work Phone: [facility] 10-23-2021 13:05-0400 Systolic blood pressure 132 mm[Hg] Marcella Xavier PA-C Work Phone: [facility] 10-10-2021 10:07-0400 Diastolic blood pressure 68 mm[Hg] Richard Jones MD Work Phone: [facility] 10-10-2021 10:07-0400 Heart rate 69 /min Richard Jones MD Work Phone: [facility] 10-10-2021 10:07-0400 Respiratory rate 16 /min Richard Jones MD Work Phone: [facility] 10-10-2021 10:07-0400 SaO2% (BldA) [Mass fraction] 98 % Richard Jones MD Work Phone: [facility] 10-10-2021 10:07-0400 Systolic blood pressure 150 mm[Hg] Richard Jones MD Work Phone: [facility] 10-10-2021 08:01-0400 Body temperature 97 [degF] Richard Jones MD Work Phone: [facility] Encounters Encounter Date Encounter Type Care Provider Facility Start: 01-28-2023 Telephone encounter Luis Caldera MD Work Phone: [facility] [place] Procedures Date Procedure Procedure Detail Performing Clinician Start: 04-06-2022 INFLUENZA SEASONAL QUADRIVALENT HIGH DOSE AGE 65+ Roselia Podlogar ROOM MANAGER.TIME STUDY OBSERVER Work Phone: Start: 04-06-2022 PFIZER-BIONTECH COVI D-19 BIVALENT BOOSTER VACCINE, AGE 12+ YR Roselia Podlogar ROOM MANAGER.TIME STUDY OBSERVER Work Phone: Start: 04-06-2022 Adult depression scr eening assessment Roselia Podlogar ROOM MANAGER.TIME STUDY OBSERVER Work Phone: Start: 03-07-2022 PROTHROMBIN TIME/PT Chr mine Caldera MD Work Phone: Start: 03-07-2022 Adult depression scr eening assessment Abdulaziz Caldera MD Work Phone: Start: 01-09-2022 Echo tthrc r-t 2d w/wom-mode compl spec&colr d Justina E Leonie ROOM MANAGER.TIME STUDY OBSERVER Work Phone: Start: 01-01-2022 Urnls dip stick/tabl [...] Activity Detail Author Start: 10-11-2031 Colonoscopy COLONOSCOPY [facility] Start: 10-11-2031 COLORECTAL CANCER SCREENING COLORECTAL CANCER SCREENING [facility] Start: 10-10-2024 Colonoscopy COLONOSCOPY [facility] Start: 10-10-2024 COLORECTAL CANCER SCREENING COLORECTAL CANCER SCREENING [facility] Start: 01-05-2024 ANNUAL PCP TEAM CHRONIC DISEASE VISIT ANNUAL PCP TEAM CHRONIC DISEASE VISIT [facility] Start: 01-05-2024 BP CONTROLLED (<130/80) BP CONTROLLED (<130/80) [facility] Start: 12-04-2023 BP CONTROLLED (<130/80) BP CONTROLLED (<130/80) [facility] Start: 11-20-2023 ANNUAL PCP TEAM CHRONIC DISEASE VISIT ANNUAL PCP TEAM CHRONIC DISEASE VISIT [facility] Start: 11-20-2023 BP CONTROLLED (<130/80) BP CONTROLLED (<130/80) [facility] Start: 09-07-2023 BP CONTROLLED (<130/80) BP CONTROLLED (<130/80) [facility] Start: 08-13-2023 HEMOGLOBIN/HEMATOCRIT HEMOGLOBIN/HEMATOCRIT [facility] Start: 08-13-2023 SERUM CREATININE SERUM CREATININE [facility] Start: 08-09-2023 ANNUAL PCP TEAM CHRONIC DISEASE VISIT ANNUAL PCP TEAM CHRONIC DISEASE VISIT [facility] Start: 08-09-2023 BP CONTROLLED (<130/80) BP CONTROLLED (<130/80) [facility] Start: 07-12-2023 ANNUAL PCP TEAM CHRONIC DISEASE VISIT ANNUAL PCP TEAM CHRONIC DISEASE VISIT [facility] Start: 07-12-2023 BP CONTROLLED (<130/80) BP CONTROLLED (<130/80) [facility] Start: 04-17-2023 BP CONTROLLED (<130/80) BP CONTROLLED (<130/80) [facility] Start: 04-16-2023 ANNUAL PCP TEAM CHRONIC DISEASE VISIT ANNUAL PCP TEAM CHRONIC DISEASE VISIT [facility] Start: 04-06-2023 Adult depression screening assessment DEPRESSION SCREENING [facility] Start: 04-06-2023 ANNUAL PCP TEAM CHRONIC DISEASE VISIT ANNUAL PCP TEAM CHRONIC DISEASE VISIT [facility] Start: 04-06-2023 BP CONTROLLED (<130/80) BP CONTROLLED (<130/80) [place] [facility] Start: 03-30-2023 3 comp foot exam completed DIABETIC FOOT EXAM [facility] Start: 03-15-2023 Influenza vaccination INFLUENZA (#1) [facility] Start: 03-07-2023 Adult depression screening assessment DEPRESSION SCREENING [facility] Start: 03-07-2023 ANNUAL PCP TEAM CHRONIC DISEASE VISIT ANNUAL PCP TEAM CHRONIC DISEASE VISIT [facility] Start: 03-07-2023 BP CONTROLLED (<130/80) BP CONTROLLED (<130/80) [facility] Start: 03-07-2023 SERUM CREATININE SERUM CREATININE [facility] Start: 03-05-2023 BP CONTROLLED (<130/80) BP CONTROLLED (<130/80) [facility] Start: 03-02-2023 Hepatitis B screening URINE ALBUMIN:CREATININE RATIO [facility] Start: 02-10-2023 Hemoglobin A1c/Hemoglobin.total in Blood HBA1C [facility] Start: 01-05-2023 BP CONTROLLED (<130/80) BP CONTROLLED (<130/80) [facility] Start: 01-01-2023 ANNUAL PCP TEAM CHRONIC DISEASE VISIT ANNUAL PCP TEAM CHRONIC DISEASE VISIT [facility] Start: 01-01-2023 BP CONTROLLED (<130/80) BP CONTROLLED (<130/80) [facility] Start: 01-01-2023 Hepatitis B surface antibody level LDL CHOLESTEROL [facility] Start: 01-01-2023 SERUM CREATININE SERUM CREATININE [facility] Start: 12-14-2022 ANNUAL PCP TEAM CHRONIC DISEASE VISIT ANNUAL PCP TEAM CHRONIC DISEASE VISIT [facility] Start: 12-08-2022 ANNUAL PCP TEAM CHRONIC DISEASE VISIT ANNUAL PCP TEAM CHRONIC DISEASE VISIT [facility] Start: 12-08-2022 BP CONTROLLED (<130/80) BP CONTROLLED (<130/80) [facility] Start: 09-06-2022 ANNUAL PCP TEAM CHRONIC DISEASE VISIT ANNUAL PCP TEAM CHRONIC DISEASE VISIT [facility] Start: 09-02-2022 Hemoglobin A1c/Hemoglobin.total in Blood HBA1C [facility] Start: 08-30-2022 SERUM CREATININE SERUM CREATININE [facility] Start: 08-09-2022 End: 10-09-2022 CBC W Auto Differential panel - Blood CBC + DIFF Lab Routine Type 2 diabetes mellitus with diabetic neuropathy, with long-term current use of insulin (HCC) Expected: 08/09/2022, Expires: 10/09/2022 [facility] Work Phone: Immunizations Immunization Date Immunization Notes Care Provider Fa cili 04-06-2022 COVID-19 booster vaccine, age 12+ yr, bivalent (PFIZER-BIONTECH) Roselia Podlogdavid ROOM MANAGER.TIME STUDY OBSERVER Work Phone: [facility] 04-06-2022 influenza, high-dose , quadrivalent vaccine (FLUZONE HIGH DOSE QUADRIVALENT) Roselia Raglandlogdavid ROOM MANAGER.TIME STUDY OBSERVER Work Phone: [facility] 06-14-2021 influenza, high-dose , quadrivalent vaccine (FLUZONE HIGH DOSE QUADRIVALENT) Abdulaziz Caldera MD Work Phone: [facility] Work Phone: 02-24-2021 zoster vaccine recombinant Abdulaziz Caldera MD Work Phone: [facility] 09-30-2020 COVID-19 vaccine, ag e 12+ yr (PFIZER-BIONTECH - PURPLE TOP) Abdulaziz Caldera MD Work Phone: [facility] 09-09-2020 COVID-19 vaccine, ag e 12+ yr (PFIZER-BIONTECH - PURPLE TOP) Abdulaziz Caldera MD Work Phone: [facility] 04-16-2020 influenza, high-dose , quadrivalent vaccine (FLUZONE HIGH DOSE QUADRIVALENT) Abdulzaiz Caldera MD Work Phone: [facility] 03-14-2020 zoster vaccine recombinant Abdulaziz Caldera MD Work Phone: [facility] Work Phone: 04-02-2019 influenza, high dose seasonal, preservative-free Abdulaziz Caldera MD Work Phone: [facility] Work Phone: 04-15-2018 influenza, high dose seasonal, preservative-free Abdulaziz Caldera MD Work Phone: [facility] 06-13-2017 influenza, high dose seasonal, preservative-free Abdulaziz Caldera MD Work Phone: [facility] 06-20-2016 influenza, high dose seasonal, preservative-free Abdulaziz Caldera MD Work Phone: [facility] 11-24-2015 pneumococcal polysaccharide vaccine, 23 valent Abdulaziz Caldera MD Work Phone: [facility] 05-16-2015 influenza, high dose seasonal, preservative-free Abdulaziz Caldera MD Work Phone: [facility] 10-27-2014 pneumococcal conjuga te vaccine, 13 valent Abdulaziz Caldera MD Work Phone: [facility] 10-27-2014 zoster vaccine, live Socrates Caldera MD Work Phone: [facility] 06-11-2011 influenza virus vaccine, unspecified formulation Abdulaziz Caldera MD Work Phone: [facility] 12-25-2010 tetanus toxoid, redu veronika diphtheria toxoid, and acellular pertussis vaccine, adsorbed Abdulaziz Caldera MD Work Phone: [facility] 04-25-2009 pneumococcal polysaccharide vaccine, 23 valent Abdulaziz Caldera MD Work Phone: [facility] 03-21-2000 diphtheria and tetan us toxoids, adsorbed for pediatric use Abdulaziz Caldera MD Work Phone: [facility] Work Phone: 02-11-1961 poliovirus vaccine, inactivated Abdulaziz Caldera MD Work Phone: [facility] Work Phone: 03-25-1959 poliovirus vaccine, inactivated Abdulaziz Caldera MD Work Phone: [facility] Work Phone: 10-16-1956 poliovirus vaccine, inactivated Abdulaziz Caldera MD Work Phone: [facility] Work Phone: 01-12-1956 poliovirus vaccine, inactivated Abdulaziz Caldera MD Work Phone: [facility] Work Phone: 12-03-1955 poliovirus vaccine, inactivated Abdulaziz Caldera MD Work Phone: [facility] Work Phone: Payers Date Payer Category Payer Unknown HOSPITAL/MEDICAL GENERIC MEDICAL GENERIC [id number] 2012-Present [phone] [address] [place] [address] Indemnity [id number] 2012 Unknown HOSPITAL/MEDICAL GENERIC MEDICAL GENERIC [id number] 2012-Present [phone] [address] [place] [address] Indemnity [id number] 2012 Unknown [id number] 2012 Medicare MEDICARE MEDICAR E A AND B [id number] 2012-Present [phone] [place] [address] Medicare [id number] 2012 Medicare MEDICARE MEDICAR E A AND B [id number] 2012-Present [phone] [place] [address] Medicare [id number] 2012 Medicare [id number] 1945 Unknown [id number] Social History Date Type Detail Facility Start: 11-23-2020 End: 04-06-2022 Tobacco smoking status NHIS Never smoked tobacco [facility] Start: 09-06-2021 End: 12-03-2022 Alcohol intake Current non-drinker of alcohol (finding) [facility] Start: 1945 Sex Assigned At Not on file [facility] Start: 08-07-2021 End: 04-17-2022 Exposure to SARS-CoV-2 (event) Not sure [facility] Tobacco smoking status No Smokin g Status Entered [facility] Sex Assigned At Male [facility] Start: 01-02-2022 End: 01-12-2022 Exposure to SARS-CoV-2 (event) Unable to assess [facility] Work Phone: Start: 11-23-2020 End: 04-06-2022 Tobacco use and exposure Smokeless tobacco non-user [facility] Work Phone: Start: 11-19-2022 End: 12-03-2022 History of Social function [facility] Work Phone: Start: 11-19-2022 End: 12-03-2022 Tobacco use panel [facility] Work Phone: Adult Depression Screening Assessment 2 [facility] Work Phone: Medical Equipment Procedure Code [...] Note Patient Outreach (EVELYN ROGERS) RICHARD ROY ([id number]) 1945 M Date Time Provider Department 05/28/23 GUDELIA HUITRON During your visit today, we recorded the following information about you: Gudelia Huitron MA 05/28/2023 12:44 PM Signed [facility] NAVIGATION OUTREACH Action/FYI NO ANSWER AislelabsHART MESSAGE SENT ANNUAL MEDICARE WELLNESS Advance Directive Discussion Never done HbA1C due on 02/10/2023 Influenza Vaccine(1) due on 03/15/2023 Patient Identified by Name and : NO Outreach Outcome/Action Unable to reach patient: Phone number not valid / voicemail full Categoricalt message sent Did you use a PCP [...] time a week. - blood sugar diagnostic (Bashar[employer]obs ULTRA TEST) test strip Test blood sugar(s) [...] im (more content not included)... [facility] 05-28-2023 Note HNO ID: [id number] Author: Gudelia Huitron MA Service: ? Author Type: Mixing And Dispensing Supervisor Type: Progress Notes Filed: 05/28/2023 12:44 PM Note Text: POPULATION HEALTH NAVIGATION OUTREACH Action/I NO ANSWER AislelabsHART MESSAGE SENT ANNUAL MEDICARE WELLNESS Advance Directive Discussion Never done HbA1C due on 02/10/2023 Influenza Vaccine(1) due on 03/15/2023 Patient Identified by Name and : NO Outreach Outcome/Action Unable to reach patient: Phone number not valid / voicemail full Torrentialhart message sent Did you use a PCP [...] May 28, 2023 7:41 AM [facility] 02-12-2023 Note Patient Outreach (IN TMMN) RICHARD ROY ([id number]) 1945 M Date Time Provider Department 02/12/23 ABDULAZIZ CALDERA During your visit today, we recorded the following information about you: Allergies As of Date: 02/12/2023 Noted Allergy Reaction PANTOPRAZOLE 09/24/2019 6 - Diarrhea Date Reviewed: 01/04/2023 Reviewed by: Tamika Grijalva LPN - Fully Assessed Visit Diagnosis:Diabetic retinopathy of right eye (HCC) [E11.319] Order(s):HGB A1C [[id number]] Order #: [id number] FUTURE Prescriptions as of 02/15/2023 - metFORMIN [...] by SOLA RANDLE on 02/15/23 [facility] 01-28-2023 Miscellaneous Notes Miya with [facility] calls to report pt was admitted to their facility over the weekend. Miya is requesting immunization record be faxed to: [phone]. Immunization record faxed as requested. Tania Heller LPN documented in this encounter [facility] 01-24-2023 Miscellaneous Notes Phoned patient's and [...] Patient's calling to say patient was at [facility] for rehabilitation after his hospitalization @ [facility] for confusion on 01/04. He was sent by squad to [facility] from [facility] on 01/21 due to episode of decreased [...] post hospital stay but it won't be [facility]. Vannessa Jorge, JACEY documented in this encounter [facility] 01-04-2023 Note HNO ID: [id number] Author: Abdulaziz Caldera MD Service: ? Author [...] Benign-Dr. Cazares Diabetes mellitus with neurological manifestation ([facility]) 09/08/2010 Diabetic retinopathy of right eye (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) 05/25/2018 History of transfusion Hyperlipidemia LDL goal < 100 04/01/2012 NSTEMI (non-ST elevated myocardial infarction) ([facility]) Pulmonary embolus, right ([facility]) 09/25/2013 Status post aortic valve repair 2005 Thoracic aneurysm without mention of rupture Type 2 diabetes mellitus with stage 3 chronic kidney disease, with long-term current use of insulin ([facility]) 06/20/2016 Vitamin D deficiency 01/03/2022 Previous Surgical History PAST SURGICAL HISTORY Procedure Laterality Date ABDOMINAL SURGERY HX AMPUTATION METATARSAL+TOE,SINGLE Right 05/25/2018 with delayed closure on 05/28/18. Dr. Obregon at [facility] COLONOSCOPY 10/10/2021 repeat in 3 [...] Facility-Administ (more content not included)... [facility] 01-04-2023 Miscellaneous Notes Pt was seen [...] recommend ER evaluation. documented in this encounter [facility] 01-04-2023 Miscellaneous Notes No return call [...] Vannessa Jorge RN documented in this encounter [facility] 01-03-2023 Note HNO ID: [id number] Author: Justina Escoto PT Service: ? Author [...] included: Therapeutic exercise, Neuromuscular re-education, Therapeutic activities, Self-skilled nursing management, and Gait training. Goals for Episode [...] PARTIALLY MET, improved 8 to 9 reps [place] in home exercise program including cardiovascular exercise. [...] exercise (more content not included)... [facility] 01-03-2023 History of Presen t illness [...] included: Therapeutic exercise, Neuromuscular re-education, Therapeutic activities, Self-skilled nursing management, and Gait training. Goals for Episode [...] PARTIALLY MET, improved 8 to 9 reps [place] in home exercise program including cardiovascular exercise. [...] with an (*). Patient education as noted. Self-Residential Management: 1: *strongly enouraged f/u with physician [...] Justina Escoto PT documented in this encounter [facility] 12-31-2022 Note HNO ID: [id number] Author: Justina Escoto PT Service: ? Author [...] Treatment Time Minutes (timed/untimed): 42 Ira Ramos, ASSOCIATE PROFESSOR OF MANAGEMENT Justina Escoto, PT [facility] 12-31-2022 History of Presen t illness [...] ALISIA Burch PT documented in this encounter [facility] 12-27-2022 Note HNO ID: [id number] Author: Justina Escoto PT Service: ? Author [...] Treatment Time Minutes (timed/untimed): 40 Ira Ramos, ASSOCIATE PROFESSOR OF MANAGEMENT Justina Escoto, PT [facility] 12-27-2022 History of Presen t illness Narrative Episode Visit Count: 8 Therapist That Will Accept/Oversee The Plan Of Care: Justina sEcoto Start of Care Date: 11/29/22 Onset Date: [...] ALISIA Burch PT documented in this encounter [facility] 12-24-2022 Note HNO ID: [id number] Author: Justina Escoto PT Service: ? Author [...] was facilitated with verbal and visual cueing. Self-Residential Management: 1: *strongly encouraged pt. to be [...] (timed/untimed): 40 Justina Escoto, PT [facility] 12-24-2022 History of Presen t illness [...] was facilitated with verbal and visual cueing. Self-Residential Management: 1: *strongly encouraged pt. to be [...] Justina Escoto PT documented in this encounter [facility] 12-17-2022 Note HNO ID: [id number] Author: Justina Escoto PT Service: ? Author [...] of gait belt. Patient education as noted. Self-Residential Management: 1: *discussed automatic lights 2: *discussed [...] (timed/untimed): 40 Justina Escoto, PT [facility] 12-17-2022 History of Presen t illness [...] of gait belt. Patient education as noted. Self-Residential Management: 1: *discussed automatic lights 2: *discussed [...] Justina Escoto PT documented in this encounter [facility] 12-14-2022 Note HNO ID: [id number] Author: Justina Escoto PT Service: ? Author Type: Physical Therapist Type: Progress Notes Filed: 12/14/2022 3:16 PM Note Text: Episode Visit Count: 5 Therapist That Will Accept/Oversee The Plan Of Care: Justina Esctoo Start of Care Date: 11/29/22 Onset Date: [...] (timed/untimed): 40 Justina Escoto, PT [facility] 12-14-2022 History of Presen t illness [...] Justina Escoto PT documented in this encounter [facility] 12-12-2022 Note HNO ID: [id number] Author: Justina Escoto PT Service: ? Author [...] (timed/untimed): 40 Justina Escoto, PT [facility] 12-12-2022 History of Presen t illness [...] Justina Escoto PT documented in this encounter [facility] 12-06-2022 Note HNO ID: [id number] Author: Justina Escoto, PT Service: ? Author [...] (timed/untimed): 40 Justina Escoto, PT [facility] 12-03-2022 Note HNO ID: [id number] Author: Bobbi Garcia MD Service: ? Author Type: Physician Type: Progress Notes Filed: 12/03/2022 12:13 PM Note Text: [facility] SE[facility]IONAL CARDIOLOGY Cardiology ([facility]) [address] [id number] OUTPATIENT VISIT DATE 12/03/2022 PRIMARY CARE PHYSICIAN: Abdulaziz Caldera [address] [place] [address] HISTORY OF PRESENT ILLNESS: Mr. Roy is [...] (HCC) 09/08/2010 Diabetic retinopathy of right eye (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) 05/25/2018 History of transfusion Hyperlipidemia LDL goal < 100 04/01/2012 NSTEMI (non-ST elevated myocardial infarction) ([facility]) Pulmonary embolus, right ([facility]) 09/25/2013 Status post aortic valve repair 2005 Thoracic aneurysm without mention of rupture Type 2 diabetes mellitus with stage 3 chronic kidney disease, with long-term current use of insulin ([facility]) 06/20/2016 Vitamin D deficiency 01/03/2022 PAST SURGICAL HISTORY Procedure Laterality Date ABDOMINAL SURGERY HX AMPUTATION METATARSAL+TOE,SINGLE Right 05/25/2018 with delayed closure on 05/28/18. Dr. Obregon at [facility] COLONOSCOPY 10/10/2021 repeat in 3 [...] 5 EachRfl: 5 warfarin (COUMADIN) 5 mg [id number] mg Saturday and Saturday, 7.5 mg all [...] daily (more content not included)... [facility] 12-03-2022 Note HNO ID: [id number] Author: Justina Escoto, PT Service: ? Author [...] facilitated with verbal, visual, and tactile cueing. Self-Residential Management: 1: *at length discussed importance of letting physician know about pt. concerns with his loss of interest in things prior to COVID-19 pandemic 2: *discussed that motivation will come from the pt. not from the or the therapist -- and this will directly influence pt. nursing home progress. 3: *discussed with and pt. that pt. stating I'm lazy. is not his personality and pt. states that he does not want to be this way, but he wants to be comfortable. (more content not included)... [facility] 11-29-2022 Note HNO ID: [id number] Author: Justina Escoto, PT Service: ? Author [...] 11 repetitions to reflect decreased fall risk. [place] in home exercise program including cardiovascular exercise. [...] Planned: 12 Planned Treatment Interventions: Therapeutic exercise (27575), Neuromuscular re-education (51062), Manual therapy (55110), Therapeutic activities (80921), Self-skilled nursing management (28874), Gait Training (24036), Patient/Family/Caregiver Education PLAN FOR NEXT VISIT: Assess [...] Clinica (more content not included)... [facility] 11-20-2022 Miscellaneous Notes OMAR 11/19/22 Appointment [...] to the pharmacy. Please call patient at: [phone]. Nola Castro Pss documented in this encounter [facility] 11-19-2022 Miscellaneous Notes Pt notified of [...] result): 09/24/2022 2.5 documented in this encounter [facility] 11-19-2022 Note HNO ID: [id number] Author: Abdulaziz Caldera MD Service: ? Author [...] Benign-Dr. Cazares Diabetes mellitus with neurological manifestation ([facility]) 09/08/2010 Diabetic retinopathy of right eye (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) 05/25/2018 History of transfusion Hyperlipidemia LDL goal < 100 04/01/2012 NSTEMI (non-ST elevated myocardial infarction) ([facility]) Pulmonary embolus, right ([facility]) 09/25/2013 Status post aortic valve repair 2004 Thoracic aneurysm without mention of rupture Type 2 diabetes mellitus with stage 3 chronic kidney disease, with long-term current use of insulin ([facility]) 06/20/2016 Vitamin D deficiency 01/03/2022 Previous Surgical History PAST SURGICAL HISTORY Procedure Laterality Date ABDOMINAL SURGERY HX AMPUTATION METATARSAL+TOE,SINGLE Right 05/25/2018 with delayed closure on 05/28/18. Dr. Obregon at [facility] COLONOSCOPY 10/10/2021 repeat in 3 [...] % (more content not included)... [facility] 10-22-2022 Note HNO ID: [id number] Author: Arminda Obregon Service: ? Author Type: [...] 3-4 months. Arminda Obregon DPM [facility] 10-22-2022 Note HNO ID: [id number] Author: Blaire Sandoval RN Service: ? Author Type: ? Type: Progress Notes Filed: 10/22/2022 3:47 PM Note Text: Patient presents with: Left Foot - Established Patient, Diabetic Foot Care Right Foot - Established Patient, Diabetic Foot Care [facility] 10-22-2022 History of Presen t illness [...] Diabetic Foot Care documented in this encounter [facility] 10-22-2022 Instructions Arminda Obregon - 10/22/2022 [...] (or decreased sensation in your feet) a vocational rehabilitation counselor should always cut your toenails. Be Careful [...] Go to your health care provider or vocational rehabilitation counselor to treat these conditions. documented in this encounter [facility] 09-25-2022 Miscellaneous Notes Patient notified. Voices [...] or narrative: no documented in this encounter [facility] 09-07-2022 Note HNO ID: [id number] Author: Tamie Kaur MD Service: ? Author [...] evaluation of folllow up after hospitalization in [facility]. he was admitted because of syncopal episode [...] Since covid hit they went to [facility] and was staying in the house by [...] Benign-Dr. Cazares Diabetes mellitus with neurological manifestation ([facility]) 09/08/2010 Diabetic retinopathy of right eye (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) 05/25/2018 History of transfusion Hyperlipidemia LDL goal < 100 04/01/2012 NSTEMI (non-ST elevated myocardial infarction) ([facility]) Pulmonary embolus, right ([facility]) 09/25/2013 Status post aortic valve repair 2004 Thoracic aneurysm without mention of rupture Type 2 diabetes mellitus with stage 3 chronic kidney disease, with long-term current use of insulin ([facility]) 06/20/2016 Vitamin D deficiency 01/03/2022 PSH: PAST SURGICAL HISTORY Procedure Laterality Date ABDOMINAL SURGERY HX AMPUTATION METATARSAL+TOE,SINGLE Right 05/25/2018 (more content not included)... [facility] 09-07-2022 Miscellaneous Notes Call to patient. Provided number to schedule- [phone]. Offered to transfer patient to schedule but patient declined to schedule stating he could call later. PAOLA Potter, RN September 07, 2022 1:11 PM Suzanne please let patient know how to proceed with driving evaluation I already put the order in computer documented in this encounter [facility] 09-07-2022 History of Presen t illness [...] evaluation of folllow up after hospitalization in [facility]. he was admitted because of syncopal episode [...] Since covid hit they went to [facility] and was staying in the house by [...] Benign-Dr. Cazares Diabetes mellitus with neurological manifestation ([facility]) 09/08/2010 Diabetic retinopathy of right eye (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) 05/25/2018 History of transfusion Hyperlipidemia LDL goal < 100 04/01/2012 NSTEMI (non-ST elevated myocardial infarction) ([facility]) Pulmonary embolus, right ([facility]) 09/25/2013 Status post aortic valve repair 2005 Thoracic aneurysm without mention of rupture Type 2 diabetes mellitus with stage 3 chronic kidney disease, with long-term current use of insulin ([facility]) 06/20/2016 Vitamin D deficiency 01/03/2022 PSH: PAST SURGICAL HISTORY Procedure Laterality Date ABDOMINAL SURGERY HX AMPUTATION METATARSAL+TOE,SINGLE Right 05/25/2018 with delayed closure on 05/28/18. Dr. Obregon at [facility] COLONOSCOPY 10/10/2021 repeat in 3 [...] one time a week. blood sugar diagnostic (Bashar[employer]obs ULTRA TEST) test strip Test blood sugar(s) [...] gait ,unsteady Cannot tandem Tamie Kaur M.D. [facility] Neurological [place] Department of Neurology Total time in minutes [...] on at night. documented in this encounter [facility] 08-28-2022 Miscellaneous Notes Phoned patient and [...] debra Heller LPN documented in this encounter [facility] 08-16-2022 Miscellaneous Notes Patient has been [...] patient. Grecia Bustillo documented in this encounter [facility] 08-14-2022 Miscellaneous Notes Phoned patient and [...] or narrative: no documented in this encounter [facility] 08-09-2022 Note HNO ID: [id number] Author: Abdulaziz Caldera MD Service: ? Author [...] 12 months ago. Going to schedule appointment [facility]. 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 Asymtpomatic still on medical management. Has completed his home PT/OT. Echo and stress test at [facility] were negative/normal. Has follow up with Dr. Garcia on 12/03. questioning if they should be seen sooner. BP well controlled with current regimen <130/80. BPH: With use of flomax, patient is getting up once at night to urinate. Has weak stream, but denies straining, incomplete emptying, dysuria, hematuria, incontinence. Followed up with ENT in [place] for chronic frontal sinusitis on CT/MRI going [...] delayed closure on 05/28/18. Dr. Obregon at [facility] COLONOSCOPY 10/10/2021 repeat in 3 [...] cholesterol. (more content not included)... [facility] 08-09-2022 History of Presen t illness [...] 12 months ago. Going to schedule appointment [facility]. 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 Asymtpomatic still on medical management. Has completed his home PT/OT. Echo and stress test at [facility] were negative/normal. Has follow up with Dr. Garcia on 12/03. questioning if they should be seen sooner. BP well controlled with current regimen <130/80. BPH: With use of flomax, patient is getting up once at night to urinate. Has weak stream, but denies straining, incomplete emptying, dysuria, hematuria, incontinence. Followed up with ENT in [place] for chronic frontal sinusitis on CT/MRI going [...] goal < 100 04/01/2012 Pulmonary embolus, right ([facility]) 09/25/2013 Status post aortic valve repair 2005 Thoracic aneurysm without mention of rupture Type 2 diabetes mellitus with stage 3 chronic kidney disease, with long-term current use of insulin ([facility]) 06/20/2016 Vitamin D deficiency 01/03/2022 Previous Surgical History PAST SURGICAL HISTORY Procedure Laterality Date ABDOMINAL SURGERY HX AMPUTATION METATARSAL+TOE,SINGLE Right 05/25/2018 with delayed closure on 05/28/18. Dr. Obregon at [facility] COLONOSCOPY 10/10/2021 repeat in 3 [...] by mouth once daily. blood sugar diagnostic ([employer] ULTRA TEST) test strip Test blood sugar(s) [...] Abs Lymph 1.00 - 4.00 k/uL 1.81 [place]% % 6.9 Abs [place] <0.87 k/uL 0.86 [place]% % 3.1 Abs [...] neuropathy, with long-term current use of insulin ([facility]) - ICD9: 250.60, 357.2, V58.67, ICD10: E11.40, Z79.4 (primary diagnosis) improved control - Continue current medications - Blood glucose monitoring on a four times a day schedule - Encouraged regular aerobic exercise and weight loss - Follow up in 6 months, sooner should any other issues arise. - Discussed diabetic education issues of long term care pharmacist diabetic complications, hypoglycemic symptoms, hyperglycemic symptoms, diet, medications- side effects and need for compliance, importance of exercise, use and side effects of insulin, and importance of annual examinations with Opthalmology with patient. - HGB A1C - COMP METABOLIC PANEL - INSULIN ASPART (U-100) 100 UNIT/ML (3 ML) SUBCUTANEOUS PEN - CBC + DIFF 2. Diabetic polyneuropathy associated with type 2 diabetes mellitus ([facility]) - ICD9: 250.60, 357.2, ICD10: E11.42 Controlled on current regimen. 3. NSTEMI (non-ST elevated myocardial infarction) ([facility]) - ICD9: 410.70, ICD10: I21.4 Patient [...] Abdulaziz Caldera MD documented in this encounter [facility] 08-06-2022 Miscellaneous Notes Phoned patient and updated him with provider's message. Patient voiced understanding. I would not recommend a baby ASA for this patient. Pt called to check on refill on baby aspirin. This is not on med list. Pt asking if he should be taking this. Please advise pt. Mila Castro LPN documented in this encounter [facility] 08-06-2022 Note HNO ID: [id number] Author: Arminda Jaimes MD Service: ? Author [...] mail or electronic medical record. [facility] 08-06-2022 History of Presen t illness [...] electronic medical record. documented in this encounter [facility] 07-31-2022 Miscellaneous Notes Spoke with patient [...] Rebecca Esteban LPN documented in this encounter [facility] 07-27-2022 Miscellaneous Notes [employer] message not read as of 07/27/2022. Called and spoke with patient. Appt rescheduled to 09/07/2022 at 11:00 AM Meghana Burgess Due to change in provider's schedule, appt on 08/21/2022 needs rescheduled. Patient notified via [employer] message on 07/05/2022. Meghana Burgess documented in this encounter [facility] 07-26-2022 Miscellaneous Notes Thanks. Darlyn, a nurse with [facility] calling to state she has discharged pt from [facility] today. Pt is doing really well. No call back needed. Thank you. documented in this encounter [facility] 01-11-2023 Miscellaneous Notes Last Office Visit: 07/12/2022 Future Office Visit: 08/09/2022 Requested Prescriptions Pending Prescriptions Disp Refills amLODIPine (NORVASC) 2.5 mg tablet 30 tablet 5 Sig: Take 1 tablet by mouth once daily. Date of Last Labs: 03/02/2022 documented in this encounter [facility] 07-17-2022 Miscellaneous Notes Reviewed and agree. Maverick PT calling from [facility] to report plan of care for patient and PT will visit patient 2 times a week for 3 weeks. PT will work with patient on functional mobility training. Halima Diaz RN documented in this encounter [facility] 07-17-2022 Miscellaneous Notes Reviewed. Barbi from [facility] calling with OT plan of care, one time visit only, patient denies any further OT needs. No call back needed. documented in this encounter [facility] 07-13-2022 Miscellaneous Notes Left detailed message on confidential line Ewa Andino Ma agree Chiki, a nurse with [facility] calling with [facility] Plan of Care for patient: Patient will be seen 1 time per week for 4 weeks for BP monitoring. No call back needed if provider agreeable. Thank you. documented in this encounter [facility] 07-12-2022 Note HNO ID: [id number] Author: Abdulaziz Caldera MD Service: ? Author Type: Physician Type: Progress Notes Filed: 07/17/2022 8:33 AM Note Text: Chief Complaint Patient presents with: Hospital F/U: Admitted 07/09/22 discharged 07/11/22 HPI Richard Roy is a 76 year old male who presents here today for Hospital Discharge Follow up.. Patient was admitted to [facility] from 07/09 to 07/11 after [...] to follow up with our office and behavioral sciences instructor. Since discharge yesterday, patient has been doing [...] Benign-Dr. Cazares Diabetes mellitus with neurological manifestation ([facility]) 09/08/2010 Diabetic retinopathy of right eye (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) 05/25/2018 History of transfusion Hyperlipidemia LDL goal < 100 04/01/2012 Pulmonary embolus, right ([facility]) 09/25/2013 Status post aortic valve repair 2004 Thoracic aneurysm without mention of rupture Type 2 diabetes mellitus with stage 3 chronic kidney disease, with long-term current use of insulin ([facility]) 06/20/2016 Vitamin D deficiency 01/03/2022 Previous Surgical History PAST SURGICAL HISTORY Procedure Laterality Date ABDOMINAL SURGERY HX AMPUTATION METATARSAL+TOE,SINGLE Right 05/25/2018 with delayed closure on 05/28/18. Dr. Obregon at [facility] COLONOSCOPY 10/10/2021 repeat in 3 [...] Take (more content not included)... [facility] 07-12-2022 Miscellaneous Notes Karly was notified Ewa Andino Ma Agree and will follow Karly with [facility] called and reports Pt was discharged yesterday and they received a referral for PT/OT/SN. They are going to do their start of care tomorrow, and she was asking if the provider would be willing to follow. documented in this encounter [facility] 07-09-2022 Miscellaneous Notes Last Office Visit: 04/16/2022 Future Office Visit: 09/17/2022 Requested Prescriptions Pending Prescriptions Disp Refills dulaglutide (TRULICITY) 1.5 mg/0.5 mL pen injector 12 Each 3 Sig: Inject 1.5 mg subcutaneously one time a week. Inject once per week. Discard Pen After Date of Last Labs: 03/02/2022 documented in this encounter [facility] 07-03-2022 Note HNO ID: [id number] Author: Arminda Obregon Service: ? Author Type: [...] 3-4 months. Arminda Obregon DPM [facility] 07-03-2022 Note HNO ID: [id number] Author: Marcella Cox RN Service: ? Author Type: Registered Nurse Type: Progress Notes Filed: 07/03/2022 11:17 AM Note Text: Patient presents with: Left Foot - Established Patient, Follow Up, nail care Right Foot - Established Patient, Follow Up, nail care [facility] 07-02-2022 Note HNO ID: [id number] Author: Bobbi Garcia MD Service: ? Author Type: Physician Type: Progress Notes Filed: 07/02/2022 12:42 PM Note Text: [facility] SE[facility]IONAL CARDIOLOGY Cardiology ([facility]) [address] [facility] [id number] OUTPATIENT VISIT DATE 07/02/2022 PRIMARY CARE PHYSICIAN: Abdulaziz Caldera [address] [place] [address] HISTORY OF PRESENT ILLNESS: Mr. Roy is [...] HISTORY: From Last OV with Justina Hadley [facility] 01/01/2022: Richard Roy is a 76 year old male who presents for routine follow up. 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 His accompanies him for his office visit today. They both explain to me he was hospitalized at [facility] for 2 days last week for [...] LE swelling. Records have been requested from [facility]. He is unsure of what testing was completed. An echocardiogram was ordered at his last office visit with me. If this was not completed at [facility], I recommend this be completed for further cardiac evaluation. PAST MEDICAL HISTORY Diagnosis Date BPH (benign prostatic hyperplasia) Cholelithiasis 09/25/2013 Chronic neutrophilia Benign-Dr. Cazares Diabetes mellitus with neurological manifestation ([facility]) 09/08/2010 Diabetic retinopathy of right eye (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) 05/25/2018 History of transfusion Hyperlipidemia LDL goal < 100 04/01/2012 Pulmonary embolus, right ([facility]) 09/25/2013 Status post aortic valve repair 2005 Thoracic aneurysm without mention of rupture Type 2 diabetes mellitus with stage 3 chronic kidney disease, with long-term current use of insulin ([facility]) 06/20/2016 Vitamin D deficiency 01/03/2022 PAST SURGICAL HISTORY Procedure Laterality Date ABDOMINAL SURGERY HX AMPUTATION METATARSAL+TOE,SINGLE Right 05/25/2018 with delayed closure on 05/28/18. Dr. Obregon at [facility] COLONOSCOPY 10/10/2021 repeat in 3 [...] 3 (more content not included)... [facility] 06-25-2022 Miscellaneous Notes Last appt: 04/16/22 [...] Tania Heller LPN documented in this encounter [facility] 05-16-2022 Miscellaneous Notes Patient has been [...] Mila Castro LPN documented in this encounter [facility] 04-17-2022 History of Presen t illness [...] evaluation of folllow up after hospitalization in [facility]. he was admitted because of syncopal episode [...] Since covid hit they went to [facility] and was staying in the house by [...] delayed closure on 05/28/18. Dr. Obregon at [facility] COLONOSCOPY 10/10/2021 repeat in 3 [...] week. Discard Pen After blood sugar diagnostic (BasharJobs ULTRA TEST) test strip Test blood sugar(s) [...] gait ,unsteady Cannot tandem Tamie Kaur M.D. [facility] Department of Neurology Total time in minutes [...] on at night. documented in this encounter [facility] 04-17-2022 Miscellaneous Notes Reviewed. Behavioral Health Social Work Progress Note Patient identified for [facility] from: PCP Reason for referral: Resources Behavioral Health Resources: Psychology - talk therapy [facility] encounter type: Telephone Encounter Attempts to Outreach: 1 attempt Referral made: Psychology - External Psychology-External referral type: Therapy Reason for external referral: Wait times at [facility] too long Final Disposition: Resources given Patient Discharged?: Yes Patient reported that caregiver was able to meet their needs today?: Yes SW placed a phone call to patient at the request of the PCP. Pt reported he is looking for talk therapy referrals at this time. SW provided the following referrals via phone: [facility] [address], [place], [facility] [address] *[facility] [address] [address] *counseling [facility] [address], [address] [place] [address] *counseling [facility] [address] [place] [address] FEDERICO Zamudio April 17, 2022 documented in this encounter [facility] 04-16-2022 History of Presen t illness [...] (HCC) 09/08/2010 Diabetic retinopathy of right eye ([facility]) mild Diverticulosis of colon (without mention [...] delayed closure on 05/28/18. Dr. Obregon at [facility] COLONOSCOPY 10/10/2021 repeat in 3 [...] week. Discard Pen After blood sugar diagnostic (WorkCastTOUCH ULTRA TEST) test strip Test blood sugar(s) [...] Abs Lymph 1.00 - 4.00 k/uL 1.81 [place]% % 6.9 Abs [place] <0.87 k/uL 0.86 Eosin% % 3.1 Abs [...] disease, with long-term current use of insulin ([facility]) - ICD9: 250.40, 585.3, V58.67, ICD10: E11.22, N18.31, Z79.4 (primary diagnosis) Controlled. - Continue current medications - Blood glucose monitoring on a 3 times a day schedule - Encouraged regular aerobic exercise and weight loss - Follow up in 6 months, sooner should any other issues arise. - Discussed diabetic education issues of long term care pharmacist diabetic complications, hypoglycemic symptoms, hyperglycemic symptoms, diet, [...] Abdulaziz Caldera MD documented in this encounter [facility] documented in this encounter [facility] History of Present illness Narrative* Roselia Madrigal, ROOM MANAGER.TIME STUDY OBSERVER - 04/06/2022 9:40 AM EDT 04/06/2022 Patient [...] Benign-Dr. Cazares Diabetes mellitus with neurological manifestation (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) 05/25/2018 History of transfusion Hyperlipidemia LDL goal < 100 04/01/2012 Pulmonary embolus, right ([facility]) 09/25/2013 Status post aortic valve repair 2004 Thoracic aneurysm without mention of rupture Type 2 diabetes mellitus with stage 3 chronic kidney disease, with long-term current use of insulin([facility]) 06/20/2016 Vitamin D deficiency 01/03/2022 ALLERGIES [...] ONCE DAILY. FOR CHOLESTEROL. blood sugar diagnostic (BasharJobs ULTRA TEST) test strip Test blood sugar(s) [...] SEASONAL QUADRIVALENT HIGH DOSE AGE 65+ - [employer] COVID-19 BIVALENT BOOSTER VACCINE, AGE 12+ YR [...] which included preparing to see the patient, [id number] patient care, completing clinical documentation, obtaining and/or reviewing separately obtained history, performing a medically appropriate examination, and counseling and educating the patient/family/caregiver. documented in [facility] encounterC[facility] Miscellaneous Notes* Telephone Encounter - Valencia [...] AM EDT ----- Message from Roselia Madrigal APRN.TIME STUDY OBSERVER sent at 04/03/2022 2:47 PM EDT ----- Please forward INR to doctor ruby on rails software developer Roselia Madrigal APRN.TIME STUDY OBSERVER documented in this encounterC[facility] History of Present illness Narrative* Arminda [...] Care Merlene Martinez LPN documented in this encounterC[facility] Instructions* Patient Instructions* Arminda Obregon - [...] (or decreased sensation in your feet) a vocational rehabilitation counselor should always cut your toenails. Be Careful [...] Go to your health care provider or vocational rehabilitation counselor to treat these conditions. documented in this encounterC[facility] History of Present illness Narrative* Rosa [...] 01/12/22 through 03/15/22 Goals updated on 03/23/2022. [place] in home exercise program. (Met) Patient will [...] Rosa Elena Poon PT documented in this encounterCleveland Clinic [facility]22 Miscellaneous Notes* Telephone Encounter - Maggy Ibarra Pss - 03/22/2022 1:49 PM EDT Pharmacy verified in [facility] Patient has been identified by [...] advise. Maggy Ibarra Pss documented in this encounterC[facility]-02-[facility]22 History of Present illness Narrative* Rosa [...] Treatment Time Minutes (timed/untimed): 40 Karen Weber, ASSOCIATE PROFESSOR OF MANAGEMENT Rosa Elena Poon PT documented in this encounterCleveland [facility]08-29-2022 History of Present illness Narrative* Rosa [...] 41 ALISIA Whiting PT documented in this encounterCleveland Clinic [facility]08-26-2022 Miscellaneous Notes* Addendum Note - Rosa Elena Poon PT - 03/09/2022 1:18 PM EDTAddended by: ROSA ELENA POON on: 03/09/2022 01:18 PM Modules accepted: Orders documented in this encounterCleveland Clinic [facility]08-[facility]22 History of Present illness Narrative* Rosa [...] 01/12/22 through 03/15/22 Goals updated on 03/09/2022. [place] in home exercise program. (Met) Patient will [...] Patient to be seen for Therapeutic exercise (45952);Neuromuscular re-education (17114);Gait Training (68073);Patient/Family/Caregiver Education PLAN FOR NEXT VISIT: Add bridging [...] Rosa Elena Lemon, PT documented in this encounterCleveland Clinic [facility]08-24-2022 Miscellaneous Notes* Telephone Encounter - Amada [...] testing Madison Ma Cma documented in this encounterCleveland Clinic [facility]08-24-2022 Instructions* Patient Instructions* Abdulaziz Caldera MD - 03/07/2022 11:45 AM EDT Please take 2,000 units of vitamin D daily over the counter. documented in this encounterCleveland Clinic [facility]22 History of Present illness Narrative* Abdulaziz Caldera MD - 03/07/2022 11:19 AM EDT Chief Complaint Patient presents with: 6 Month Exam ER F/U HPI Richard Roy is a 76 year old male who presents here today for ER Follow Up.. Patient evaluated at [facility] ED on 03/02 for complaint [...] Benign-Dr. Cazares Diabetes mellitus with neurological manifestation (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) 05/25/2018 History of transfusion Hyperlipidemia LDL goal < 100 04/01/2012 Pulmonary embolus, right ([facility]) 09/25/2013 Status post aortic valve repair 2004 Thoracic aneurysm without mention of rupture Type 2 diabetes mellitus with stage 3 chronic kidney disease, with long-term current use of insulin([facility]) 06/20/2016 Vitamin D deficiency 01/03/2022 Previous Surgical History PAST SURGICAL HISTORY Procedure Laterality Date ABDOMINAL SURGERY HX AMPUTATION METATARSAL+TOE,SINGLE Right 05/25/2018 with delayed closure on 05/28/18. Dr. Obregon at [facility] COLONOSCOPY 10/10/2021 repeat in 3 [...] ONCE DAILY. FOR CHOLESTEROL. blood sugar diagnostic (BasharJobs ULTRA TEST) test strip Test blood sugar(s) [...] Abs Lymph 1.00 - 4.00 k/uL 1.81 [place]% % 6.9 Abs [place] <0.87 k/uL 0.86 Eosin% % 3.1 Abs [...] PANEL Abdulaziz Caldera MD documented in this encounterC[facility] History of Present illness Narrative* Rosa [...] Rosa Elena Poon PT documented in this encounterC[facility]08-[facility] History of Present illness Narrative* Rosa [...] Rosa Elena Poon PT documented in this encounterC[facility] History of Present illness Narrative* Rosa [...] Rosa Elena Poon PT documented in this encounterC[facility] History of Present illness Narrative* Rosa [...] 43 ALISIA Whiting PT documented in this encounterC[facility]08-03-2022 History of Present illness Narrative* Rosa [...] Rosa Elena Poon PT documented in this encounterC[facility]07-29-[facility]22 History of Present illness Narrative* Rosa [...] 01/12/22 through 03/15/22 Goals updated on 02/09/2022. [place] in home exercise program. (Met) Patient will [...] Patient to be seen for Therapeutic exercise (48891);Neuromuscular re-education (69926);Gait Training (12463);Patient/Family/Caregiver Education PLAN FOR NEXT VISIT: Continue to [...] Rosa Elena Poon PT documented in this encounterCleveland Clinic [facility]07-26-2022 Miscellaneous Notes* Telephone Encounter - Nola [...] patient. Nola Castro Pss documented in this encounterCleveland Clinic [facility]07-22-2022 History of Present illness Narrative* Cortney [...] 43 ALISIA Whiting, PT documented in this encounterC[facility] Clinic [facility]07-21-2022 Miscellaneous Notes* Telephone Encounter - Mila [...] No need to notify patient. Eulalia Gaston [facility] documented in this encounterC[facility] Clinic [facility]07-19-[facility]22 History of Present illness Narrative* Justina [...] 43 ALISIA Whiting PT documented in this encounterCleveland Clinic [facility]07-12-2022 Miscellaneous Notes* Telephone Encounter - Rebecca [...] you. Rebecca Gonzales RN documented in this encounterCleveland Clinic [facility]07-12-2022 History of Present illness Narrative* Chiki [...] 45 ALISIA Whiting PT documented in this encounterCleveland Clinic [facility]07-08-2022 Miscellaneous Notes* Telephone Encounter - Maggy [...] on driving. Please advise. documented in this encounterCleveland Clinic [facility]07-01-2022 History of Present illness Narrative* Rosa [...] of Care: created on 01/12/22 through 03/15/22 [place] in home exercise program. Patient will demonstrate [...] Planned: 16 Planned Treatment Interventions: Therapeutic exercise (72619);Neuromuscular re- education (13819);Gait Training (65935);Patient/Family/Caregiver Education PLAN FOR NEXT VISIT: Review HEP [...] Rosa Elena Poon PT documented in this encounterCleveland Clinic [facility]07-01-2022 Miscellaneous Notes* Telephone Encounter - Ewa [...] Pending consult. Please advise documented in this encounterCleveland Clinic [facility]06-29-2022 Miscellaneous Notes* Telephone Encounter - Mila [...] his syncope/collapse. Thank you! documented in this encounterCleveland Clinic [facility] Hospital06-29-2022 Miscellaneous Notes* Result QuickNote - Justina Hadley APRN.CNP - 01/10/2022 11:33 AM EDT Please call patient and notify him. Echocardiogram is stable. Valve replacement function is stable.No cardiac structure/function changes to explain his syncope/collapse. Thank you! documented in this encounterCleveland Clinic [facility]06-24-2022 History of Present illness Narrative* Tamie [...] medical record. REFERRING PHYSICIAN: Abdulaziz Caldera [address] [facility] [address] Accompanied by: Spouse ASSESSMENT: 76 year old [...] evaluation of folllow up after hospitalization in [facility]. he was admitted because of syncopal episode [...] Since covid hit they went to [facility] and was staying in the house by [...] delayed closure on 05/28/18. Dr. Obregon at [facility] COLONOSCOPY 10/10/2021 repeat in 3 [...] by mouth once daily. blood sugar diagnostic (BIT[employer]A Cards & SolutionsUCH ULTRA TEST) test strip Test blood sugar(s) [...] gait ,unsteady Cannot tandem Tamie Kaur M.D. [facility] [place] Department of Neurology January 05, 2022 Total [...] lights on at night. documented in this encounterCleveland Clinic [facility]06-21-2022 Miscellaneous Notes* Telephone Encounter - Justina Martinez LPN - 01/02/2022 8:06 AM EDT I spoke to and informed him of Justina's response to lipid panel results. Patient voiced understanding. Justina Martinez LPN * Telephone Encounter - Justina Martinez LPN - 01/02/2022 7:43 AM EDT ----- Message from Justina Hadley APRN.TIME STUDY OBSERVER sent at 01/02/2022 7:38 AM EDT ----- Please call patient and notify him cholesterol has good control. Thank you! documented in this encounterCleveland Clinic [facility]06-20-2022 History of Present illness Narrative* Abdulaziz Caldera MD - 01/01/2022 10:20 AM EDT Chief Complaint Patient presents with: Hospital Follow Up: [facility] discharged 12/29/21 HPI Richard Roy is a 76 year old male who presents here today for Hospital Discharge Follow up. Accompanied today by his . Patient admitted to [facility] from 12/27 to 12/29 after presenting to the [facility] ED after being found slumped over his tractor at home earlier in the afteernoon. Had been working outside for unknown period of time. Had only eaten cookies and milk that day. Heat index over 100. Back to baseline at the time of evaluation by hospitalist at [facility]. Found to have leukocytosis at [place] [facility] and elevated lactic acid level. Noted [...] echo since it was not completed at [facility]. No other changes to regimen. [...] kidney disease, with long-term current use of insulin([facility]) 06/20/2016 Previous Surgical History PAST SURGICAL HISTORY Procedure Laterality Date ABDOMINAL SURGERY HX AMPUTATION METATARSAL+TOE,SINGLE Right 05/25/2018 with delayed closure on 05/28/18. Dr. Obregon at [facility] COLONOSCOPY 10/10/2021 repeat in 3 [...] by mouth once daily. blood sugar diagnostic (BasharJobs ULTRA TEST) test strip Test blood sugar(s) [...] SCRN Abdulaziz Caldera MD documented in this encounterCleveland Clinic [facility]06-20-2022 Instructions* Patient Instructions* Justina Hadley APRN.TIME STUDY OBSERVER - 01/01/2022 9:05 AM EDT High Blood [...] risk for high blood pressure. Developed by [employer]. Published by [employer]. Copyright 2014 [employer] and/or one of its subsidiaries. All rights reserved. documented in this encounterCleveland Clinic [facility]06-20-2022 History of Present illness Narrative* Justina [...] bothexplain to me he was hospitalized at [facility] for 2 days last week for [...] LE swelling. Records have been requested from [facility]. He is unsure of what testing was completed. An echocardiogram was ordered at his last office visit with me.If this was not completed at [facility], I recommend this be completed for further cardiac evaluation. PAST MEDICAL HISTORY Diagnosis Date Cholelithiasis 09/25/2013 Chronic neutrophilia Benign-Dr. 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) 05/25/2018 History of transfusion Hyperlipidemia LDL goal < 100 04/01/2012 Pulmonary embolus, right ([facility]) 09/25/2013 Status post aortic valve repair 2004 Thoracic aneurysm without mention of rupture Type 2 diabetes mellitus with stage 3 chronic kidney disease, with long-term current use of insulin([facility]) 06/20/2016 PAST SURGICAL HISTORY Procedure Laterality Date ABDOMINAL SURGERY HX AMPUTATION METATARSAL+TOE,SINGLE Right 05/25/2018 with delayed closure on 05/28/18. Dr. Obregon at [facility] COLONOSCOPY 10/10/2021 repeat in 3 [...] injection (DEFINITY) INTRAVENOUS DIRECTED PRN Justina Hadley, ROOM MANAGER.TIME STUDY OBSERVER sodium chloride 0.9 % (flush) 10 mL (BD POSIFLUSH) 10 mL INTRAVENOUS DIRECTED PRN Justina Hadley, ROOM MANAGER.TIME STUDY OBSERVER Review of Systems Constitutional: Negative for chills, [...] -MILD on [facility] 2004 -stress testing 2013 with no obvious [...] 01, 2022, 8:57 AM documented in this encounterCleveland Clinic [facility]06-19-2022 Note. MICRO - Microbiology PROCEDURE: Blood Culture (bacterial) [*1] SOURCE: Blood BODY SITE: COLLECTED DATE/TIME: 12/27/2021 17:43 EDT RECEIVED DATE/TIME: 12/28/2021 14:37 EDT START DATE/TIME: 12/28/2021 14:37 EDT FREE TEXT SOURCE: FINAL REPORTS Final Report [] Verified Date/Time/Personnel: 12/31/2021 07:29 EDT Staphylococcus epidermidis Isolated from anaerobe bottle only. Refer to previous culture for susceptibility. [id number] PRELIMINARY REPORTS Preliminary Report [] Verified Date/Time/Personnel: 12/30/2021 09:39 EDT Staphylococcus epidermidis Isolated from anaerobe bottle only. Refer to previous culture for susceptibility. [id number] Preliminary Report [] Verified Date/Time/Personnel: 12/28/2021 15:59 EDT Culture has been received in lab and is no growth to date. Routine cultures are held for 5 days. STAINS GSANA [] Verified Date/Time/Personnel: 12/29/2021 14:08 EDT Gram Positive Cocci in clusters Performing Locations *1: This test was performed at: [facility], [address] [place] [address], [facility] , [facility] ([place])12-31-2021 Note. MICRO - Microbiology PROCEDURE: Blood Culture [...] Locations *1: This test was performed at: [facility], [address] [place] [address], [id number] , [facility] ([place]12-27-2021 SARS-CoV-2 (COVID-19) RNA ANGELY+probe Ql (Nph)Positive 2 *ABN* (12/27/21 5:43 PM)AO Auto Urine SSComment on above:Result Comment: positive covid cvrb s. tona Evaluation + Plan note Diagnostic Tests Pending * Urinalysis 12/27/21 * Blood Culture (bacterial) 12/27/21 * Blood Culture (bacterial) 12/27/21 [facility] 06-02-2022 History of Present illness Narrative* Abdulaziz Caldera MD - 12/14/2021 3:13 PM EDT Chief Complaint Patient presents with: Covid Follow Up HPI Richard Roy is a 76 year old male who presents here today for Above Complaints.. Patient positive for COVID in the [facility] ER last week on 12/06. [...] Benign-Dr. Cazares Diabetes mellitus with neurological manifestation (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) 05/25/2018 History of transfusion Hyperlipidemia LDL goal < 100 04/01/2012 Pulmonary embolus, right ([facility]) 09/25/2013 Status post aortic valve repair 2005 Thoracic aneurysm without mention of rupture Type 2 diabetes mellitus with stage 3 chronic kidney disease, with long-term current use of insulin([facility]) 06/20/2016 Previous Surgical History PAST SURGICAL HISTORY Procedure Laterality Date ABDOMINAL SURGERY HX AMPUTATION METATARSAL+TOE,SINGLE Right 05/25/2018 with delayed closure on 05/28/18. Dr. Obregon at [facility] COLONOSCOPY 10/10/2021 repeat in 3 [...] by mouth once daily. blood sugar diagnostic ([employer] ULTRA TEST) test strip Test blood sugar(s) [...] detail. Abdulaziz Caldera MD documented in this encounterC[facility]05-27-[facility] History of Present illness Narrative* Abdulaziz [...] today for Above Complaints.. Patient evaluated at [facility] ER on 12/06 for complaint of generalized weakness, cough, and feeling off balance and developed cough which started on 12/04. Denied other COVID symptoms at that time. Lab workup in the ER was unremarkable aside from positive COVID test and INR of 3.3. UA unremarkable. CXR showed some ill defined densities in RLL which was likely 2/2 COVID infection. [place] to be well enough and discharged home [...] amputation of first toe of right foot ([facility]) 05/25/2018 History of transfusion Hyperlipidemia LDL goal < 100 04/01/2012 Pulmonary embolus, right ([facility]) 09/25/2013 Status post aortic valve repair 2005 Thoracic aneurysm without mention of rupture Type 2 diabetes mellitus with stage 3 chronic kidney disease, with long-term current use of insulin([facility]) 06/20/2016 Previous Surgical History PAST SURGICAL HISTORY Procedure Laterality Date ABDOMINAL SURGERY HX AMPUTATION METATARSAL+TOE,SINGLE Right 05/25/2018 with delayed closure on 05/28/18. Dr. Obregon at [facility] COLONOSCOPY 10/10/2021 repeat in 3 [...] by mouth once daily. blood sugar diagnostic ([employer] ULTRA TEST) test strip Test blood sugar(s) [...] these interactions. Not interested in [place] [facility] [place]. Since his symptoms are mild, he would prefer to rest at home. Discussed risks and benefits of treatment and that he is high risk for severe infection. Red flags for re-assessment reviewed with patient in detail. I spent a total of 25 minutes on the date of the service which included preparing to see the patient, [id number] patient care, completing clinical documentation, obtaining and/or reviewing separately obtained history, performing a medically appropriate examination, counseling and educating the pat ient/family/caregiver and ordering medications, tests, or procedures. Abdulaziz Caldera MD documented in this encounterCleveland [facility]05-27-2022 Miscellaneous Notes* Telephone Encounter - Abdulaziz [...] with one of our providers or with [employer] care online. * Telephone Encounter - Rosa Elena Martinez Pss - 12/08/2021 2:16 PM EDT Patient called stating he was at [facility] ER on 12/06. Tested positive for covid. Patient was informed tocontact the office within 5 days to inform. Please advise patient when he can be seen in office. documented in this encounterCleveland Clinic [facility]05-09-2022 Miscellaneous Notes* [place] [facility] [place] 9:49 AM EDT Patient has been identified by name and date of : Yes Pending Prescriptions Disp Refills METFORMIN ER 500 MG 24 HR TABLET,EXTENDED RELEASE Sig: Take 1 tablet by mouth daily with breakfast. NUHA: No OMAR-09/06/21 Labs-08/30/21 NOV-03/07/22 RX INSTRUCTIONS: Patient aware RX will be sent to pharmacy. No need to notify patient. Eulalia [facility] documented in this encounterCleveland Clinic [facility]04-11-2022 Instructions* Patient Instructions* Marcella Park PA-C - 10/23/2021 1:25 PM EDT -Recommend daily fiber supplement and plenty of fluids The following instructions are important for you related to your office visit today with the [facility] General Surgeons. INSTRUCTIONS FOR DIVERTICULA I [...] you should contact our office immediately @ [phone] and ask to be transferred to the General Surgery department. The following instructions are important for you related to your office visit today with the [facility] General Surgeons. INSTRUCTIONS FOLLOWING A POLYP [...] you should contact our office immediately @ [phone] and ask to be transferred to the General Surgery department. documented in this encounterCleveland Clinic [facility]04-11-2022 History of Present illness Narrative* Marcella Park PA-C - 10/23/2021 1:09 PM EDT FOLLOW UP VISIT - ENDOSCOPY NAME: Richard Bonilla [facility] NO.: [id number] DATE OF SERVICE: 10/23/2021 : 1945 REFERRING [...] which included preparing to see the patient, [id number] patient care, completing clinical documentation, obtaining and/or reviewing separately obtained history, counseling and educating the patient/family/caregiver, communicating with other HCPs (not separately reported), independently interpreting results (not separately reported) and communicating results to the patient/family/caregiver. Marcella Park PA-C documented in this encounterCleveland Clinic [facility]03-29-2022 Nurse Note* Caroline Larkin RN - [...] answered. Caroline Larkin RN documented in this encounterCleveland Clinic [facility]03-29-2022 History and physical note * Richard [...] Benign-Dr. Cazares Diabetes mellitus with neurological manifestation (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) 05/25/2018 Hyperlipidemia LDL goal < 100 04/01/2012 Pulmonary embolus, right ([facility]) 09/25/2013 Status post aortic valve repair 2005 Thoracic aneurysm without mention of rupture Type 2 diabetes mellitus with stage 3 chronic kidney disease, with long-term current use of insulin([facility]) 06/20/2016 PAST SURGICAL HISTORY PAST SURGICAL HISTORY Procedure Laterality Date AMPUTATION METATARSAL+TOE,SINGLE Right 05/25/2018 with delayed closure on 05/28/18. Dr. Obregon at [facility] COLONOSCOPY FLX DX W/COLLJ SPEC [...] by mouth once daily. blood sugar diagnostic ([employer] Solutions[employer]CH ULTRA TEST) test strip Test blood sugar(s) [...] patient was offered a [facility]procedure at [facility]. I have counseled the patient [...] diagnosis) Marcella Park PA-C documented in this encounterCleveland Clinic [facility]03-24-2022 Miscellaneous Notes* Telephone Encounter - Mila [...] notify patient. Violette Lockhart documented in this encounterCleveland Clinic [facility]ucl[facility]03-23-2022 Miscellaneous Notes* Telephone Encounter - Nelson [...] advise, Halima Diaz RN documented in this encounterCleveland Clinic [facility]02-02-2022 Miscellaneous Notes* Telephone Encounter - Garland Vicente - 08/16/2021 9:36 AM EST 10-10-2021 [facility] documented in this encounterCleveland Clinic [facility]01-13-2022 NoteHNO ID: [id number] Author: REY Burt Service: Radiology Author Type: Evaluation Engineer Type: Progress Notes Filed: 07/27/2021 10:50 AM [...] Roy DATE: July 27, 2021 TIME: 10:49 [id number] History of Past illness Narrative* Problem Noted [...] of this encounter (statuses as of 10/04/2021) [facility] History of Past illness Narrative* Problem [...] of this encounter (statuses as of 10/05/2021) [facility] of [facility] illness Narrative* Problem [...] of this encounter (statuses as of 10/11/2021) [facility] Narrative* Problem [...] of this encounter (statuses as of 10/16/2021) [facility] Narrative* Problem [...] of this encounter (statuses as of 10/27/2021) [facility] Narrative* Problem [...] of this encounter (statuses as of 11/20/2021) [facility] Narrative* Problem [...] of this encounter (statuses as of 12/12/2021) [facility] Narrative* Problem [...] of this encounter (statuses as of 12/13/2021) [facility] Narrative* Problem [...] of this encounter (statuses as of 12/14/2021) [facility] Narrative* Problem [...] of this encounter (statuses as of 01/01/2022) [facility] Narrative* Problem [...] of this encounter (statuses as of 01/02/2022) [facility] Narrative* Problem [...] of this encounter (statuses as of 01/02/2022) [facility] Narrative* Problem [...] of this encounter (statuses as of 01/06/2022) [facility] Narrative* Problem [...] of this encounter (statuses as of 01/10/2022) [facility] Narrative* Problem [...] of this encounter (statuses as of 01/11/2022) [facility] Narrative* Problem [...] of this encounter (statuses as of 01/12/2022) [facility] Narrative* Problem [...] of this encounter (statuses as of 01/12/2022) [facility] Narrative* Problem [...] of this encounter (statuses as of 01/19/2022) [facility] N[facility]ative* Problem [...] of this encounter (statuses as of 01/23/2022) [facility] N[facility]* Problem [...] of this encounter (statuses as of 01/25/2022) [facility] Narrative* Problem [...] of this encounter (statuses as of 01/30/2022) [facility] Narrative* Problem [...] of this encounter (statuses as of 02/01/2022) [facility] N[facility]* Problem [...] of this encounter (statuses as of 02/02/2022) [facility] N[facility]ative* Problem [...] of this encounter (statuses as of 02/02/2022) [facility]* Problem [...] of this encounter (statuses as of 02/06/2022) [facility] N[facility]* Problem [...] of this encounter (statuses as of 02/09/2022) [facility]* Problem [...] of this encounter (statuses as of 02/14/2022) [facility]* Problem [...] of this encounter (statuses as of 02/26/2022) [facility]* Problem [...] of this encounter (statuses as of 03/02/2022) [facility]* Problem [...] of this encounter (statuses as of 03/05/2022) [facility]* Problem [...] of this encounter (statuses as of 03/07/2022) [facility]* Problem [...] of this encounter (statuses as of 03/08/2022) [facility]* Problem [...] of this encounter (statuses as of 03/09/2022) [facility]* Problem [...] of this encounter (statuses as of 03/12/2022) [facility]* Problem [...] of this encounter (statuses as of 03/16/2022) [facility]* Problem [...] of this encounter (statuses as of 03/23/2022) [facility]* Problem [...] of this encounter (statuses as of 04/03/2022) [facility]* Problem [...] of this encounter (statuses as of 04/04/2022) [facility]* Problem [...] of this encounter (statuses as of 04/06/2022) [facility]* Problem [...] of this encounter (statuses as of 04/17/2022) [facility]* Problem [...] of this encounter (statuses as of 04/17/2022) [facility]* Problem [...] of this encounter (statuses as of 04/19/2022) [facility]* Problem [...] of this encounter (statuses as of 05/16/2022) [facility]* Problem [...] of this encounter (statuses as of 06/25/2022) [facility]* Problem [...] of this encounter (statuses as of 07/14/2022) [facility]* Problem [...] of this encounter (statuses as of 07/15/2022) [facility]* Problem [...] of this encounter (statuses as of 07/18/2022) [facility]* Problem [...] of this encounter (statuses as of 07/18/2022) [facility]* Problem [...] of this encounter (statuses as of 07/19/2022) [facility]* Problem [...] of this encounter (statuses as of 07/20/2022) [facility]* Problem [...] of this encounter (statuses as of 07/25/2022) [facility]* Problem [...] of this encounter (statuses as of 07/26/2022) [facility]* Problem [...] of this encounter (statuses as of 07/27/2022) [facility]* Problem [...] of this encounter (statuses as of 07/31/2022) [facility]* Problem [...] of this encounter (statuses as of 08/06/2022) [facility]* Problem [...] of this encounter (statuses as of 08/07/2022) [address]2015 History of Past illness Narrative* Problem [...] of this encounter (statuses as of 08/09/2022) [address] History of Past illness Narrative* Problem [...] of this encounter (statuses as of 08/14/2022) [facility]* Problem [...] of this encounter (statuses as of 08/16/2022) [facility]* Problem [...] of this encounter (statuses as of 08/28/2022) [facility]* Problem [...] of this encounter (statuses as of 09/07/2022) [facility]* Problem [...] of this encounter (statuses as of 09/09/2022) [facility]* Problem [...] of this encounter (statuses as of 09/25/2022) [facility]* Problem [...] of this encounter (statuses as of 10/23/2022) [facility]* Problem [...] of this encounter (statuses as of 11/20/2022) [facility]* Problem [...] of this encounter (statuses as of 11/20/2022) [facility]* Problem [...] of this encounter (statuses as of 12/13/2022) [facility]* Problem [...] of this encounter (statuses as of 12/14/2022) [facility]* Problem [...] of this encounter (statuses as of 12/18/2022) [facility]* Problem [...] of this encounter (statuses as of 12/25/2022) [facility]* Problem [...] of this encounter (statuses as of 12/27/2022) [facility]* Problem [...] of this encounter (statuses as of 12/31/2022) [facility]* Problem [...] of this encounter (statuses as of 01/03/2023) [facility]* Problem [...] of this encounter (statuses as of 01/04/2023) [facility]* Problem [...] of this encounter (statuses as of 01/04/2023) [facility]* Problem [...] of this encounter (statuses as of 01/25/2023) [facility] N[facility]ative* Problem [...] of this encounter (statuses as of 01/29/2023) [facility] note* Diagnosis Type 2 diabetes mellitus with diabetic neuropathy, with long-term current use of insulin (HCC) Status post aortic valve repair Other postprocedural status Chronic anticoagulation Long-term (current) use of anticoagulants documented [facility] this encounter [facility]* Diagnosis Colon cancer screening Special [...] Diagnosis COVID-19- Primary [facility] Diagnosis Hyperlipidemia with target LDL less than 100- Primary Other and unspecified hyperlipidemia Primary hypertension Unspecified essential hypertension Thoracic aortic aneurysm without rupture (HCC) Thoracic aneurysm without mention of rupture Coronary artery disease involving [place] coronary artery of [place] heart without angina pectoris Syncope, unspecified syncope type Obesity, Class II, BMI 35-39.9 Obesity, unspecified documented [facility]* Diagnosis Syncope and collapse- Primary Altered mental status, unspecified altered mental status type Urinary incontinence, unspecified type Benign prostatic hyperplasia with nocturia Nocturia Vitamin D deficiency, unspecified Wound of left lower extremity, initial encounter Encounter for screening for malignant neoplasm of prostate Special screening for malignant neoplasm of prostate [facility] Diagnosis Abnormality of gait due to impairment of balance- Primary Altered mental status, unspecified altered mental status type [facility] Diagnosis Chronic anticoagulation Long-term (current) use of anticoagulants Thoracic aortic aneurysm without rupture (HCC) Thoracic aneurysm without mention of rupture Status post aortic valve repair Other postprocedural status [facility]* Diagnosis Type 2 diabetes mellitus with diabetic neuropathy, with long-term current use of insulin (HCC)- Primary [facility]* Diagnosis Abnormality of gait due [...] vitamin D deficiency [facility]* Diagnosis Type 2 diabetes mellitus with stage 3 chronic kidney disease, with long-term current use of insulin (HCC) [facility] Abnormality of gait due to impairment of balance- Primary [facility] Diagnosis Type 2 diabetes mellitus with diabetic neuropathy, with long-term current use of insulin ([facility]) [facility] Diagnosis Abnormality of gait due [...] Abnormal coagulation profile ANTHONY (acute kidney injury) ([facility]) Acute kidney failure, unspecified [facility] Diagnosis Abnormality of gait due [...] polyneuropathy associated with type 2 diabetes mellitus ([facility]) [facility] Diagnosis Generalized weakness- Primary Other malaise and fatigue Encounter for immunization Need for other specified prophylactic vaccination against single bacterial disease Mild depression Depressive disorder, not elsewhere classified [facility] Generalized anxiety disorder- Primary [...] mellitus (HCC) NSTEMI (non-ST elevated myocardial infarction) ([facility]) Acute myocardial infarction, subendocardial infarction, episode [...] disease, with long-term current use of insulin (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) [facility] Diagnosis Driving safety issue- Primary Other specified personal history presenting hazards to health [facility] Diagnosis Onychomycosis- Primary Dermatophytosis of nail Pain in toe of left foot Pain in limb Amputated toe of right foot ([facility]) Diabetic polyneuropathy associated with type 2 diabetes mellitus ([facility]) [facility] Diagnosis Spinal stenosis, lumbar region, without neurogenic claudication- Primary Primary osteoarthritis of both knees Primary localized osteoarthrosis, lower leg [facility] Diagnosis Spinal stenosis, lumbar region, without neurogenic claudication- Primary Primary osteoarthritis of both knees Primary localized osteoarthrosis, lower leg [facility] Diagnosis Spinal stenosis, lumbar region, without neurogenic claudication- Primary Primary osteoarthritis of both knees Primary localized osteoarthrosis, lower leg [facility] Diagnosis Spinal stenosis, lumbar region, without neurogenic claudication- Primary Primary osteoarthritis of both knees Primary localized osteoarthrosis, lower leg [facility] Diagnosis Spinal stenosis, lumbar region, without neurogenic claudication- Primary Primary osteoarthritis of both knees Primary localized osteoarthrosis, lower leg [facility] Diagnosis Spinal stenosis, lumbar region, without neurogenic claudication- Primary Primary osteoarthritis of both knees Primary localized osteoarthrosis, lower leg [facility] N[facility]ative No data available for this section [facility] Discharge instructions No data available for this section [facility] Progress note No data available for this section [facility] Reason for referral (narrative)* Outpatient Procedure (Routine) - Closed Specialty Diagnoses / Procedures Referred By Contac t Referred To [facility] Diagnoses Colon cancer screening Procedures COLONOSCOPY SCREENING COLONOSCOPY FLX DX W/COLLJ SPEC WHEN PFMarcella Cho PA-C [address] [place] [address] [facility] [address] [phone] Referral ID Status Reason Start Date Expiration Date V isits Requested Visits Authorized [id number] Closed Auto-Generate d Referral 08/16/2021 08/16/2022 1 1 [facility] for referral (narrative)* Outpatient Procedure (Routine) - Closed Specialty Diagnoses / Procedures Referred By Contac t Referred To Contact [facility] Diagnoses Colon cancer screening Procedures COLONOSCOPY SCREENING COLONOSCOPY FLX DX W/COLLJ SPEC WHEN Marcella Alatorre PA-C [address] [place] [address] [facility] [address] [place] [id number] Referral ID Status Reason Start Date Expiration Date V isits Requested Visits Authorized [id number] Closed Auto-Generate d Referral 08/16/2021 08/16/2022 1 1 [facility] for visit Narrative* Outpatient Procedure (Routine) - Closed Specialty Diagnoses / Procedures Referred By Contac t Referred To Contact [facility] Diagnoses Colon cancer screening Procedures COLONOSCOPY SCREENING COLONOSCOPY FLX DX W/COLLJ SPEC WHEN PFMarcella Cho PA-C [address] [place] [address] [facility] [address] [place] [id number] Referral ID Status Reason Start Date Expiration Date V isits Requested Visits Authorized [id number] Closed Auto-Generate d Referral 08/16/2021 08/16/2022 1 1 [facility]* Outpatient Procedure (Routine) - Closed Specialty Diagnoses / Procedures Referred By Linn carrillo Ref[facility] Diagnoses Chronic anticoagulation Thoracic aortic aneurysm without rupture (HCC) Status post aortic valve repair Procedures ECHO TTE W/DOPPLER, COMPLETE Justina Hadley, ROOM MANAGER.TIME STUDY OBSERVER [address] [place] [address] [facility] [address] [address] Referral ID Status Reason Start Date Expiration Date V isits Requested Visits Authorized [id number] Closed Auto-Generate d Referral 07/03/2021 07/03/2022 1 1 [facility] Advance Directives No Advanced Directives Records FoundDocuments on File Type Date Recorded 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 Expl 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 Advance Directive(s) 09/12/2021 7:14 AM Documents on File Type Date Recorded 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 Expl anation Advance Directive(s) 09/12/2021 7:14 AM [...] Diagnoses Driving safety issue Procedures CONSULT TO ELEMENTARY EDUCATION TEACHER OCCUPATIONAL THERAPY EVAL HIGH COMPLEX 60 MINS Tamie Kaur MD [address] [place] [address] [facility] [address] [place] [phone] Referral ID Status Reason Start Date Expiration Date Visits Requested Visits Authorized [id number] Authorized PCP Requested Referral Auto-Generate d Referral 09/07/2022 09/07/2023 99 99 Specialty Diagnoses / Procedures Referred By Contac t Referred To Contact [facility] Diagnoses Polyneuropathy Procedures CONSULT TO PHYSICAL THERAPY PHYSICAL THERAPY EVALUATION HIGH COMPLEX 45 MINS Tamie Kaur MD [address] [place] [address] [facility] [address] [address] Referral ID Status Reason Start Date Expiration Date Visits Requested Visits Authorized [id number] Authorized PCP Requested Referral Auto-Generate d Referral 04/17/2022 04/17/2023 99 99 Specialty Diagnoses / Procedures Referred By Contac t Referred To Contact Psychology Diagnoses Generalized anxiety disorder Procedures CONSULT TO PSYCHOLOGY OFFICE/OUTPATIENT [facility] 60-74 MINUTES Tamie Kaur MD [address] [phone] Referral ID Status Reason Start Date Expiration Date Visits Requested Visits Authorized [id number] Pending Review PCP Requested Referral 04/17/2022 04/17/2023 1 1 Specialty Diagnoses / Procedures Referred By Contac t Referred To Contact Podiatry Diagnoses Type 2 diabetes mellitus with diabetic neuropathy, with long-term current use of insulin (HCC) Procedures CONSULT TO PODIATRY OFFICE/OUTPATIENT [facility] 60-74 MINUTES PodlogRoselia hernandez APRN.TIME STUDY OBSERVER [address] [place] [address] Referral ID Status Reason Start Date Expiration Date Visits Requested Visits Authorized [id number] Authorized PCP Requested Referral 01/12/2022 01/11/2023 1 1 Specialty Diagnoses / Procedures Referred By Contac t Referred To Contact [facility] Diagnoses Altered mental status, unspecified altered mental status type Procedures CONSULT TO SPEECH THERAPY OFFICE/OUTPATIENT [facility] 60-74 MINUTES Tamie Kaur MD [address] [place] [id number] [facility] [address] [address] Referral ID Status Reason Start Date Expiration Date Visits Requested Visits Authorized [id number] Authorized Auto-Generat ed Referral 01/05/2022 01/05/2023 99 99 Specialty Diagnoses / Procedures Referred By Contac t Referred To Contact [facility] Diagnoses Abnormality of gait due to impairment of balance Procedures CONSULT TO PHYSICAL THERAPY PHYSICAL THERAPY EVALUATION HIGH COMPLEX 45 MINS Tamie Kaur MD [address] [place] [address] [facility] [place] [address] Referral ID Status Reason Start Date Expiration Date Visits Requested Visits Authorized [id number] Authorized PCP Requested Referral Auto-Generate d Referral 01/05/2022 01/05/2023 99 99 Specialty Diagnoses / Procedures Referred By Contac t Referred To Contact [facility] Diagnoses Altered mental status, unspecified altered mental status type Procedures EPIL EEG ROUTINE ELECTROENCEPHALOGRAM REC COMA/SLEEP ONLY Tamie Kaur MD [address] [place] [address] [place] [address] Referral ID Status Reason Start Date Expiration Date Visits Requested Visits Authorized [id number] Authorized Auto-Generat ed Referral 01/05/2022 01/05/2023 1 1 Specialty Diagnoses / Procedures Referred By Contac t Referred To Contact Neurology Diagnoses Altered mental status, unspecified altered mental status type Procedures CONSULT TO NEUROLOGY OFFICE/OUTPATIENT [facility] MDM 60-74 MINUTES Abdulaziz Caldera MD [address] [place] [address] Referral ID Status Reason Start Date Expiration Date Visits Requested Visits Authorized [id number] Authorized PCP Requested Referral 01/01/2022 01/01/2023 1 [...] or prosecute any alcohol or drug abuse patient.[facility] the event this information is protected by the Federal Confidentiality of Alcohol and Drug Abuse Patient Records regulations: The Federal rules restrict any use of the information to criminally investigate or prosecute any alcohol or drug abuse patient.[facility] the event this information is protected by the Federal Confidentiality of Alcohol and Drug Abuse Patient Records regulations: The Federal rules restrict any use of the information to criminally investigate or prosecute any alcohol or drug abuse patient.[facility] the event this information is protected by the Federal Confidentiality of Alcohol and Drug Abuse Patient Records regulations: The Federal rules restrict any use of the information to criminally investigate or prosecute any alcohol or drug abuse patient.[facility] the event this information is protected by the Federal Confidentiality of Alcohol and Drug Abuse Patient Records regulations: The Federal rules restrict any use of the information to criminally investigate or prosecute any alcohol or drug abuse patient.[facility] the event this information is protected by the Federal Confidentiality of Alcohol and Drug Abuse Patient Records regulations: The Federal rules restrict any use of the information to criminally investigate or prosecute any alcohol or drug abuse patient.[facility] HospitalIn the event this information is protected by the Federal Confidentiality of Alcohol and Drug Abuse Patient Records regulations: The Federal rules restrict any use of the information to criminally investigate or prosecute any alcohol or drug abuse patient.[facility] HospitalIn the event this information is protected by the Federal Confidentiality of Alcohol and Drug Abuse Patient Records regulations: The Federal rules restrict any use of the information to criminally investigate or prosecute any alcohol or drug abuse patient.[facility] HospitalIn the event this information is protected by the Federal Confidentiality of Alcohol and Drug Abuse Patient Records regulations: The Federal rules restrict any use of the information to criminally investigate or prosecute any alcohol or drug abuse patient.[facility] HospitalIn the event this information is protected by the Federal Confidentiality of Alcohol and Drug Abuse Patient Records regulations: The Federal rules restrict any use of the information to criminally investigate or prosecute any alcohol or drug abuse patient.[facility] HospitalIn the event this information is protected by the Federal Confidentiality of Alcohol and Drug Abuse Patient Records regulations: The Federal rules restrict any use of the information to criminally investigate or prosecute any alcohol or drug abuse patient.[facility] HospitalIn the event this information is protected by the Federal Confidentiality of Alcohol and Drug Abuse Patient Records regulations: The Federal rules restrict any use of the information to criminally investigate or prosecute any alcohol or drug abuse patient.[facility] HospitalIn the event this information is protected by the Federal Confidentiality of Alcohol and Drug Abuse Patient Records regulations: The Federal rules restrict any use of the information to criminally investigate or prosecute any alcohol or drug abuse patient.[facility] HospitalIn the event this information is protected by the Federal Confidentiality of Alcohol and Drug Abuse Patient Records regulations: The Federal rules restrict any use of the information to criminally investigate or prosecute any alcohol or drug abuse patient.[facility] HospitalIn the event this information is protected by the Federal Confidentiality of Alcohol and Drug Abuse Patient Records regulations: The Federal rules restrict any use of the information to criminally investigate or prosecute any alcohol or drug abuse patient.[facility] HospitalIn the event this information is protected by the Federal Confidentiality of Alcohol and Drug Abuse Patient Records regulations: The Federal rules restrict any use of the information to criminally investigate or prosecute any alcohol or drug abuse patient.[facility] HospitalIn the event this information is protected by the Federal Confidentiality of Alcohol and Drug Abuse Patient Records regulations: The Federal rules restrict any use of the information to criminally investigate or prosecute any alcohol or drug abuse patient.[facility] HospitalIn the event this information is protected by the Federal Confidentiality of Alcohol and Drug Abuse Patient Records regulations: The Federal rules restrict any use of the information to criminally investigate or prosecute any alcohol or drug abuse patient.[facility] HospitalIn the event this information is protected by the Federal Confidentiality of Alcohol and Drug Abuse Patient Records regulations: The Federal rules restrict any use of the information to criminally investigate or prosecute any alcohol or drug abuse patient.[facility] HospitalIn the event this information is protected by the Federal Confidentiality of Alcohol and Drug Abuse Patient Records regulations: The Federal rules restrict any use of the information to criminally investigate or prosecute any alcohol or drug abuse patient.[facility] HospitalIn the event this information is protected by the Federal Confidentiality of Alcohol and Drug Abuse Patient Records regulations: The Federal rules restrict any use of the information to criminally investigate or prosecute any alcohol or drug abuse patient.[facility] HospitalIn the event this information is protected by the Federal Confidentiality of Alcohol and Drug Abuse Patient Records regulations: The Federal rules restrict any use of the information to criminally investigate or prosecute any alcohol or drug abuse patient.[facility] HospitalIn the event this information is protected by the Federal Confidentiality of Alcohol and Drug Abuse Patient Records regulations: The Federal rules restrict any use of the information to criminally investigate or prosecute any alcohol or drug abuse patient.[facility] HospitalIn the event this information is protected by the Federal Confidentiality of Alcohol and Drug Abuse Patient Records regulations: The Federal rules restrict any use of the information to criminally investigate or prosecute any alcohol or drug abuse patient.[facility] HospitalIn the event this information is protected by the Federal Confidentiality of Alcohol and Drug Abuse Patient Records regulations: The Federal rules restrict any use of the information to criminally investigate or prosecute any alcohol or drug abuse patient.[facility] HospitalIn the event this information is protected by the Federal Confidentiality of Alcohol and Drug Abuse Patient Records regulations: The Federal rules restrict any use of the information to criminally investigate or prosecute any alcohol or drug abuse patient.[facility]In the event this information is protected by the Federal Confidentiality of Alcohol and Drug Abuse Patient Records regulations: The Federal rules restrict any use of the information to criminally investigate or prosecute any alcohol or drug abuse patient.[facility] HospitalIn the event this information is protected by the Federal Confidentiality of Alcohol and Drug Abuse Patient Records regulations: The Federal rules restrict any use of the information to criminally investigate or prosecute any alcohol or drug abuse patient.[facility] HospitalIn the event this information is protected by the Federal Confidentiality of Alcohol and Drug Abuse Patient Records regulations: The Federal rules restrict any use of the information to criminally investigate or prosecute any alcohol or drug abuse patient.[facility] HospitalIn the event this information is protected by the Federal Confidentiality of Alcohol and Drug Abuse Patient Records regulations: The Federal rules restrict any use of the information to criminally investigate or prosecute any alcohol or drug abuse patient.[facility] HospitalIn the event this information is protected by the Federal Confidentiality of Alcohol and Drug Abuse Patient Records regulations: The Federal rules restrict any use of the information to criminally investigate or prosecute any alcohol or drug abuse patient.[facility] HospitalIn the event this information is protected by the Federal Confidentiality of Alcohol and Drug Abuse Patient Records regulations: The Federal rules restrict any use of the information to criminally investigate or prosecute any alcohol or drug abuse patient.[facility] HospitalIn the event this information is protected by the Federal Confidentiality of Alcohol and Drug Abuse Patient Records regulations: The Federal rules restrict any use of the information to criminally investigate or prosecute any alcohol or drug abuse patient.[facility] HospitalIn the event this information is protected by the Federal Confidentiality of Alcohol and Drug Abuse Patient Records regulations: The Federal rules restrict any use of the information to criminally investigate or prosecute any alcohol or drug abuse patient.[facility] HospitalIn the event this information is protected by the Federal Confidentiality of Alcohol and Drug Abuse Patient Records regulations: The Federal rules restrict any use of the information to criminally investigate or prosecute any alcohol or drug abuse patient.[facility] HospitalIn the event this information is protected by the Federal Confidentiality of Alcohol and Drug Abuse Patient Records regulations: The Federal rules restrict any use of the information to criminally investigate or prosecute any alcohol or drug abuse patient.[facility] HospitalIn the event this information is protected by the Federal Confidentiality of Alcohol and Drug Abuse Patient Records regulations: The Federal rules restrict any use of the information to criminally investigate or prosecute any alcohol or drug abuse patient.[facility] HospitalIn the event this information is protected by the Federal Confidentiality of Alcohol and Drug Abuse Patient Records regulations: The Federal rules restrict any use of the information to criminally investigate or prosecute any alcohol or drug abuse patient.[facility] HospitalIn the event this information is protected by the Federal Confidentiality of Alcohol and Drug Abuse Patient Records regulations: The Federal rules restrict any use of the information to criminally investigate or prosecute any alcohol or drug abuse patient.[facility] HospitalIn the event this information is protected by the Federal Confidentiality of Alcohol and Drug Abuse Patient Records regulations: The Federal rules restrict any use of the information to criminally investigate or prosecute any alcohol or drug abuse patient.[facility] HospitalIn the event this information is protected by the Federal Confidentiality of Alcohol and Drug Abuse Patient Records regulations: The Federal rules restrict any use of the information to criminally investigate or prosecute any alcohol or drug abuse patient.[facility] HospitalIn the event this information is protected by the Federal Confidentiality of Alcohol and Drug Abuse Patient Records regulations: The Federal rules restrict any use of the information to criminally investigate or prosecute any alcohol or drug abuse patient.[facility] HospitalIn the event this information is protected by the Federal Confidentiality of Alcohol and Drug Abuse Patient Records regulations: The Federal rules restrict any use of the information to criminally investigate or prosecute any alcohol or drug abuse patient.[facility] HospitalIn the event this information is protected by the Federal Confidentiality of Alcohol and Drug Abuse Patient Records regulations: The Federal rules restrict any use of the information to criminally investigate or prosecute any alcohol or drug abuse patient.[facility] HospitalIn the event this information is protected by the Federal Confidentiality of Alcohol and Drug Abuse Patient Records regulations: The Federal rules restrict any use of the information to criminally investigate or prosecute any alcohol or drug abuse patient.[facility] HospitalIn the event this information is protected by the Federal Confidentiality of Alcohol and Drug Abuse Patient Records regulations: The Federal rules restrict any use of the information to criminally investigate or prosecute any alcohol or drug abuse patient.[facility] HospitalIn the event this information is protected by the Federal Confidentiality of Alcohol and Drug Abuse Patient Records regulations: The Federal rules restrict any use of the information to criminally investigate or prosecute any alcohol or drug abuse patient.[facility] HospitalIn the event this information is protected by the Federal Confidentiality of Alcohol and Drug Abuse Patient Records regulations: The Federal rules restrict any use of the information to criminally investigate or prosecute any alcohol or drug abuse patient.[facility] HospitalIn the event this information is protected by the Federal Confidentiality of Alcohol and Drug Abuse Patient Records regulations: The Federal rules restrict any use of the information to criminally investigate or prosecute any alcohol or drug abuse patient.[facility] HospitalIn the event this information is protected by the Federal Confidentiality of Alcohol and Drug Abuse Patient Records regulations: The Federal rules restrict any use of the information to criminally investigate or prosecute any alcohol or drug abuse patient.[facility] HospitalIn the event this information is protected by the Federal Confidentiality of Alcohol and Drug Abuse Patient Records regulations: The Federal rules restrict any use of the information to criminally investigate or prosecute any alcohol or drug abuse patient.[facility] HospitalIn the event this information is protected by the Federal Confidentiality of Alcohol and Drug Abuse Patient Records regulations: The Federal rules restrict any use of the information to criminally investigate or prosecute any alcohol or drug abuse patient.[facility] HospitalIn the event this information is protected by the Federal Confidentiality of Alcohol and Drug Abuse Patient Records regulations: The Federal rules restrict any use of the information to criminally investigate or prosecute any alcohol or drug abuse patient.[facility] HospitalIn the event this information is protected by the Federal Confidentiality of Alcohol and Drug Abuse Patient Records regulations: The Federal rules restrict any use of the information to criminally investigate or prosecute any alcohol or drug abuse patient.[facility] HospitalIn the event this information is protected by the Federal Confidentiality of Alcohol and Drug Abuse Patient Records regulations: The Federal rules restrict any use of the information to criminally investigate or prosecute any alcohol or drug abuse patient.[facility] HospitalIn the event this information is protected by the Federal Confidentiality of Alcohol and Drug Abuse Patient Records regulations: The Federal rules restrict any use of the information to criminally investigate or prosecute any alcohol or drug abuse patient.[facility] HospitalIn the event this information is protected by the Federal Confidentiality of Alcohol and Drug Abuse Patient Records regulations: The Federal rules restrict any use of the information to criminally investigate or prosecute any alcohol or drug abuse patient.[facility] HospitalIn the event this information is protected by the Federal Confidentiality of Alcohol and Drug Abuse Patient Records regulations: The Federal rules restrict any use of the information to criminally investigate or prosecute any alcohol or drug abuse patient.[facility] HospitalIn the event this information is protected by the Federal Confidentiality of Alcohol and Drug Abuse Patient Records regulations: The Federal rules restrict any use of the information to criminally investigate or prosecute any alcohol or drug abuse patient.[facility] HospitalIn the event this information is protected by the Federal Confidentiality of Alcohol and Drug Abuse Patient Records regulations: The Federal rules restrict any use of the information to criminally investigate or prosecute any alcohol or drug abuse patient.[facility] HospitalIn the event this information is protected by the Federal Confidentiality of Alcohol and Drug Abuse Patient Records regulations: The Federal rules restrict any use of the information to criminally investigate or prosecute any alcohol or drug abuse patient.[facility] HospitalIn the event this information is protected by the Federal Confidentiality of Alcohol and Drug Abuse Patient Records regulations: The Federal rules restrict any use of the information to criminally investigate or prosecute any alcohol or drug abuse patient.[facility] HospitalIn the event this information is protected by the Federal Confidentiality of Alcohol and Drug Abuse Patient Records regulations: The Federal rules restrict any use of the information to criminally investigate or prosecute any alcohol or drug abuse patient.[facility] HospitalIn the event this information is protected by the Federal Confidentiality of Alcohol and Drug Abuse Patient Records regulations: The Federal rules restrict any use of the information to criminally investigate or prosecute any alcohol or drug abuse patient.[facility] HospitalIn the event this information is protected by the Federal Confidentiality of Alcohol and Drug Abuse Patient Records regulations: The Federal rules restrict any use of the information to criminally investigate or prosecute any alcohol or drug abuse patient.[facility] HospitalIn the event this information is protected by the Federal Confidentiality of Alcohol and Drug Abuse Patient Records regulations: The Federal rules restrict any use of the information to criminally investigate or prosecute any alcohol or drug abuse patient.[facility] HospitalIn the event this information is protected by the Federal Confidentiality of Alcohol and Drug Abuse Patient Records regulations: The Federal rules restrict any use of the information to criminally investigate or prosecute any alcohol or drug abuse patient.[facility] HospitalIn the event this information is protected by the Federal Confidentiality of Alcohol and Drug Abuse Patient Records regulations: The Federal rules restrict any use of the information to criminally investigate or prosecute any alcohol or drug abuse patient.[facility] HospitalIn the event this information is protected by the Federal Confidentiality of Alcohol and Drug Abuse Patient Records regulations: The Federal rules restrict any use of the information to criminally investigate or prosecute any alcohol or drug abuse patient.[facility] HospitalIn the event this information is protected by the Federal Confidentiality of Alcohol and Drug Abuse Patient Records regulations: The Federal rules restrict any use of the information to criminally investigate or prosecute any alcohol or drug abuse patient.[facility] HospitalIn the event this information is protected by the Federal Confidentiality of Alcohol and Drug Abuse Patient Records regulations: The Federal rules restrict any use of the information to criminally investigate or prosecute any alcohol or drug abuse patient.[facility] HospitalIn the event this information is protected by the Federal Confidentiality of Alcohol and Drug Abuse Patient Records regulations: The Federal rules restrict any use of the information to criminally investigate or prosecute any alcohol or drug abuse patient.[facility] HospitalIn the event this information is protected by the Federal Confidentiality of Alcohol and Drug Abuse Patient Records regulations: The Federal rules restrict any use of the information to criminally investigate or prosecute any alcohol or drug abuse patient.[facility] HospitalIn the event this information is protected by the Federal Confidentiality of Alcohol and Drug Abuse Patient Records regulations: The Federal rules restrict any use of the information to criminally investigate or prosecute any alcohol or drug abuse patient.[facility] HospitalIn the event this information is protected by the Federal Confidentiality of Alcohol and Drug Abuse Patient Records regulations: The Federal rules restrict any use of the information to criminally investigate or prosecute any alcohol or drug abuse patient.[facility] HospitalIn the event this information is protected by the Federal Confidentiality of Alcohol and Drug Abuse Patient Records regulations: The Federal rules restrict any use of the information to criminally investigate or prosecute any alcohol or drug abuse patient.[facility] HospitalIn the event this information is protected by the Federal Confidentiality of Alcohol and Drug Abuse Patient Records regulations: The Federal rules restrict any use of the information to criminally investigate or prosecute any alcohol or drug abuse patient.[facility] HospitalIn the event this information is protected by the Federal Confidentiality of Alcohol and Drug Abuse Patient Records regulations: The Federal rules restrict any use of the information to criminally investigate or prosecute any alcohol or drug abuse patient.[facility] HospitalIn the event this information is protected by the Federal Confidentiality of Alcohol and Drug Abuse Patient Records regulations: The Federal rules restrict any use of the information to criminally investigate or prosecute any alcohol or drug abuse patient.[facility] Reason for Visit (unrecogniz ed section and content) Specialty Diagnoses / Procedures Referred By Linn carrillo Referred To Contact [facility] Diagnoses Abnormality of gait due to impairment of balance Procedures CONSULT TO PHYSICAL THERAPY PHYSICAL THERAPY EVALUATION HIGH COMPLEX 45 MINS Tamie Kaur MD [address] [place] [address] [facility] [address] [address] Referral ID Status Reason Start Date Expiration Date Visits Requested Visits Authorized [id number] Authorized PCP Requested Referral Auto-Generate d Referral [...] 6 mo Reason Comments Hospital Follow Up [facility] discharged Reason Comments Results Reason Comments Consult altered mental statu s Specialty Diagnoses / Procedures Referred By Linn carrillo Referred To Contact Neurology Diagnoses Altered mental status, unspecified altered mental status type Procedures CONSULT TO NEUROLOGY OFFICE/OUTPATIENT [facility] MDM 60-74 MINUTES Abdulaziz Caldera MD [address] [place] [address] Referral ID Status Reason Start Date Expiration Date V isits Requested Visits Authorized [id number] Closed PCP Requested Referral 01/01/2022 01/01/2023 1 [...] of Care Update Reason Comments [facility] PT POC Reason Comments OT plan of care Reason Onset Date Comments Refill Request 07/25/2022 Reason Comments Home Health-Nursing Update Reason Onset Date Comments Anticoagulation 07/31/2022 Specialty Diagnoses / Procedures Referred By Linn carrillo Referred To Contact Ent - Otolaryngology Diagnoses Chronic frontal sinusitis Procedures CONSULT TO ENT OFFICE/OUTPATIENT NEW HIGH MDM 60-74 MINUTES Abdulaziz Caldera MD [address] [place] [address] Referral ID Status Reason Start Date Expiration Date V isits Requested Visits Authorized [id number] Closed PCP Requested Referral 07/12/2022 07/12/2023 1 [...] Care Teams (unrecognized sec tion and content) Cloth Dyer Relationship Specialty Start Date End Date Abdulaziz Caldera MD [address] [place] [address] PCP - General Family Practice 11/23/20 Cloth Dyer Relationship Specialty Start Date End Date Abdulaziz Caldera MD [address] [facility] [place] [address] PCP - General Family Practice 11/23/20 Cloth Dyer Relationship Specialty Start Date End Date Abdulaziz Caldera MD [address] [facility] [place] [address] PCP - General Family Practice 11/23/20 Cloth Dyer Relationship Specialty Start Date End Date Abdulaziz Caldera MD [address] [facility] [place] [address] PCP - General Family Practice 11/23/20 Cloth Dyer Relationship Specialty Start Date End Date Abdulaziz Caldera MD [facility] [facility] [place] [address] PCP - General Family Practice 11/23/20 Cloth Dyer Relationship Specialty Start Date End Date Abdulaziz Caldera MD [address] [facility] [place] [address] PCP - General Family Practice 11/23/20 Cloth Dyer Relationship Specialty Start Date End Date Abdulaziz Caldera MD [address] [facility] [place] [address] PCP - General Family Practice 11/23/20 Cloth Dyer Relationship Specialty Start Date End Date Abdulaziz Caldera MD [address] [facility] [place] [address] PCP - General Family Practice 11/23/20 Cloth Dyer Relationship Specialty Start Date End Date Abdulaziz Caldera MD [address] [facility] [place] [address] PCP - General Family Practice 11/23/20 Cloth Dyer Relationship Specialty Start Date End Date Abdulaziz Caldera MD [address] [facility] [place] [address] PCP - General Family Practice 11/23/20 Cloth Dyer Relationship Specialty Start Date End Date Abdulaziz Caldera MD [address] [facility] [place] [address] PCP - General Family Practice 11/23/20 Cloth Dyer Relationship Specialty Start Date End Date Abdulaziz Caldera MD [address] [facility] [place] [address] PCP - General Family Practice 11/23/20 Cloth Dyer Relationship Specialty Start Date End Date Abdulaziz Caldera MD [address] [facility] [place] [address] PCP - General Family Practice 11/23/20 Cloth Dyer Relationship Specialty Start Date End Date Abdulaziz Caldera MD [address] [facility] [place] [address] PCP - General Family Practice 11/23/20 Cloth Dyer Relationship Specialty Start Date End Date Abdulaziz Caldera MD [address] [facility] [place] [address] PCP - General Family Practice 11/23/20 Cloth Dyer Relationship Specialty Start Date End Date Abdulaziz Caldera MD [address] [facility] [place] [address] PCP - General Family Practice 11/23/20 Cloth Dyer Relationship Specialty Start Date End Date Abdulaziz Caldera MD [address] [facility] [place] [address] PCP - General Family Practice 11/23/20 Cloth Dyer Relationship Specialty Start Date End Date Abdulaziz Caldera MD [address] [facility] [place] [address] PCP - General Family Practice 11/23/20 Cloth Dyer Relationship Specialty Start Date End Date Abdulaziz Caldera MD [address] [facility] [place] [address] PCP - General Family Practice 11/23/20 Cloth Dyer Relationship Specialty Start Date End Date Abdulaziz Caldera MD [address] [facility] [place] [address] PCP - General Family Practice 11/23/20 Cloth Dyer Relationship Specialty Start Date End Date Abdulaziz Caldera MD [address] [facility] [place] [address] PCP - General Family Practice 11/23/20 Cloth Dyer Relationship Specialty Start Date End Date Abdulaziz Caldera MD [address] [facility] [place] [address] PCP - General Family Medicine 11/23/20 Cloth Dyer Relationship Specialty Start Date End Date Abdulaziz Caldera MD [address] [facility] [place] [address] PCP - General Family Medicine 11/23/20 Cloth Dyer Relationship Specialty Start Date End Date Abdulaziz Caldera MD [address] [facility] [place] [address] PCP - General Family Medicine 11/23/20 Cloth Dyer Relationship Specialty Start Date End Date Abdulaziz Caldera MD [address] [facility] [place] [address] PCP - General Family Medicine 11/23/20 Cloth Dyer Relationship Specialty Start Date End Date Abdulaziz Caldera MD [address] [facility] [place] [address] PCP - General Family Medicine 11/23/20 Cloth Dyer Relationship Specialty Start Date End Date Abdulaziz Caldera MD [address] [facility] [place] [address] PCP - General Family Medicine 11/23/20 Cloth Dyer Relationship Specialty Start Date End Date Abdulaziz Caldera MD [address] [facility] [place] [address] PCP - General Family Medicine 11/23/20 Cloth Dyer Relationship Specialty Start Date End Date Abdulaziz Caldera MD [address] [facility] [place] [address] PCP - General Family Medicine 11/23/20 Cloth Dyer Relationship Specialty Start Date End Date Abdulaziz Caldera MD [address] [place] [address] PCP - General Family Medicine 11/23/20 Cloth Dyer Relationship Specialty Start Date End Date Abdulaziz Caldera MD [address] [facility] [place] [address] PCP - General Family Medicine 11/23/20 Cloth Dyer Relationship Specialty Start Date End Date Abdulaziz Caldera MD [address] [facility] [place] [address] PCP - General Family Medicine 11/23/20 Cloth Dyer Relationship Specialty Start Date End Date Abdulaziz Caldera MD [address] [facility] [place] [address] PCP - General Family Medicine 11/23/20 Cloth Dyer Relationship Specialty Start Date End Date Abdulaziz Caldera MD [address] [facility] [place] [address] PCP - General Family Medicine 11/23/20 Cloth Dyer Relationship Specialty Start Date End Date Abdulaziz Caldera MD [address] [facility] [place] [address] PCP - General Family Medicine 11/23/20 Cloth Dyer Relationship Specialty Start Date End Date Abdulaziz Caldera MD [address] [facility] [place] [address] PCP - General Family Medicine 11/23/20 Cloth Dyer Relationship Specialty Start Date End Date Abdulaziz Caldera MD [address] [facility] [place] [address] PCP - General Family Medicine 11/23/20 Cloth Dyer Relationship Specialty Start Date End Date Abdulaziz Caldera MD [address] [facility] [place] [address] PCP - General Family Medicine 11/23/20 Cloth Dyer Relationship Specialty Start Date End Date Abdulaziz Caldera MD [address] [facility] [place] [address] PCP - General Family Medicine 11/23/20 Cloth Dyer Relationship Specialty Start Date End Date Abdulaziz Caldear MD [address] [facility] [place] [address] PCP - General Family Medicine 11/23/20 Cloth Dyer Relationship Specialty Start Date End Date Abdulaziz Caldera MD [address] [facility] [place] [address] PCP - General Family Medicine 11/23/20 Cloth Dyer Relationship Specialty Start Date End Date Abdulaziz Caldera MD [address] [facility] [place] [address] PCP - General Family Medicine 11/23/20 (unrecognized sect ion and content) No Status Records FoundNo Status Records FoundNo Status Records FoundNo Status Records Found INFORMATION SOURCE (unrecogn ized section and content) DATE CREATED AUTHOR AUTHOR'S ORGANIZ ATION 02/04/2022 [facility] DATE CREATED AUTHOR AUTHOR'S ORGANIZ ATION 04/19/2022 [facility] ([place]) DATE CREATED AUTHOR AUTHOR'S DESTINY ATION 05/30/2023 [facility] FOR RECORDS PERTAINING TO PATIENTS WHO [...] BE BASED ON THE PRIMARY CLINICAL RECORDS. [facility] [employer] [facility]. provides no warranty or guarantee of the accuracy or completeness of information in this document.
[2023-09-18 08:06] LABS: International Normalized Ratio 1.6; Prothrombin Time (Protime)PT. 18.7 SECONDS (11.7-14.9)
== END ==
LOC: OLS.ACH 04:00
PROVIDERS: PCP Family Medicine; Referring Provider Internal Medicine; Visit Provider Internal Medicine
DX: Z79.01 Long term (current) use of anticoagulants (principal)
CPT/HCPCS: 36415; 85610

== ENCOUNTER → 2023-09-25 | Outpatient (REF) | payer MEDICARE, OTHER, SELFPAY ==
--- OUTSIDE RECORDS SUMMARY | 2023-09-25 04:38 | XMS RPT_ITS | CCD ---
Author Name Unknown Address [address] [place] [address] Organization [facility] Care Team Providers Care Assistant Front End Manager Name Role Phone Abdulaziz Caldera MD Primary [...] pantoprazole; Translations: [PANTOPRAZOLE] Drug Allergy 03-12-2020 Diarrhea [facility] Medications Current Medications Medication Drug Class(es) [...] Coronary atherosclerosis; Translations: [Atherosclerotic heart disease of [place] coronary artery without angina pectoris] Chronic Diabetes [...] sources) Long-term current use of anticoagulant; Translations: [jail (current) use of anticoagulants] Onset: 05-07-2018 11-06-2018 Episodic Other aftercare (1 source) terminologist (current) use of anticoagulants; Translations: [Chronic anticoagulation] Onset: 11-06-2018 Episodic Other aftercare (1 source) jail (current) use of insulin; Translations: [Type 2 [...] Results Test Name Value Interpretation Reference Range [facility] it Vital Signs Date Time Vital Sign Value Performing Clinician Scott quinn 09-07-2022 11:01-0500 Body height 185.4 cm Tamie Kaur MD Work Phone: [facility] 09-07-2022 11:01-0500 Body weight 113.4 kg Tamie Kaur MD Work Phone: [facility] 09-07-2022 11:01-0500 Diastolic blood pressure 57 mm[Hg] Tamie Kaur MD Work Phone: [facility] 09-07-2022 11:01-0500 Heart rate 64 /min Tamie Kaur MD Work Phone: [facility] 09-07-2022 11:01-0500 Respiratory rate 16 /min Tamie Kaur MD Work Phone: [facility] 09-07-2022 11:01-0500 SaO2% (BldA) [Mass fraction] 99 % Tamie Kaur MD Work Phone: [facility] 09-07-2022 11:01-0500 Systolic blood pressure 124 mm[Hg] Tamie Kaur MD Work Phone: [facility] 08-09-2022 16:35-0500 Body weight 113.4 kg Abdulaziz Caldera MD Work Phone: [facility] 08-09-2022 16:35-0500 Diastolic blood pressure 62 mm[Hg] Abdulaziz Caldera MD Work Phone: [facility] 08-09-2022 16:35-0500 Heart rate 64 /min Abdulaziz Caldera MD Work Phone: [facility] 08-09-2022 16:35-0500 Respiratory rate 16 /min Abdulaziz Caldera MD Work Phone: [facility] 08-09-2022 16:35-0500 SaO2% (BldA) [Mass fraction] 96 % Abdulaziz Caldera MD Work Phone: [facility] 08-09-2022 16:35-0500 Systolic blood pressure 112 mm[Hg] Abdulaziz Caldera MD Work Phone: [facility] 04-17-2022 11:23-0400 Body height 185.4 cm Tamie Kaur MD Work Phone: [facility] 04-17-2022 11:23-0400 Body weight 114.31 kg Tamie Kaur MD Work Phone: [facility] 04-17-2022 11:23-0400 Diastolic blood pressure 71 mm[Hg] Tamie Kaur MD Work Phone: [facility] 04-17-2022 11:23-0400 Heart rate 72 /min Tamie Kaur MD Work Phone: [facility] 04-17-2022 11:23-0400 Respiratory rate 18 /min Tamie Kaur MD Work Phone: [facility] 04-17-2022 11:23-0400 SaO2% (BldA) [Mass fraction] 98 % Tamie Kaur MD Work Phone: [facility] 04-17-2022 11:23-0400 Systolic blood pressure 116 mm[Hg] Tamie Kaur MD Work Phone: [facility] 04-16-2022 13:09-0400 Body height 185.4 cm Abdulaziz Caldera MD Work Phone: [facility] 04-16-2022 13:09-0400 Body weight 114.31 kg Abdulaziz Caldera MD Work Phone: [facility] 04-16-2022 13:09-0400 Diastolic blood pressure 72 mm[Hg] Abdulaziz Caldera MD Work Phone: [facility] 04-16-2022 13:09-0400 Heart rate 70 /min Abdulaziz Caldera MD Work Phone: [facility] 04-16-2022 13:09-0400 Respiratory rate 16 /min Abdulaziz Caldera MD Work Phone: [facility] 04-16-2022 13:09-0400 SaO2% (BldA) [Mass fraction] 98 % Abdulaziz Caldera MD Work Phone: [facility] 04-16-2022 13:09-0400 Systolic blood pressure 132 mm[Hg] Abdulaziz Caldera MD Work Phone: [facility] 04-06-2022 09:36-0400 Body weight 114.31 kg Roselia Madrigal PAPER STRIPPER.LOSS PREVENTION LEAD Work Phone: [facility] 04-06-2022 09:36-0400 Diastolic blood pressure 62 mm[Hg] Roselia Podlogar PAPER STRIPPER.LOSS PREVENTION LEAD Work Phone: [facility] 04-06-2022 09:36-0400 Heart rate 62 /min Roselia Podlogar PAPER STRIPPER.LOSS PREVENTION LEAD Work Phone: [facility] 04-06-2022 09:36-0400 Respiratory rate 16 /min Roselia Podlogar PAPER STRIPPER.LOSS PREVENTION LEAD Work Phone: [facility] 04-06-2022 09:36-0400 SaO2% (BldA) [Mass fraction] 97 % Roselia Podlogar PAPER STRIPPER.LOSS PREVENTION LEAD Work Phone: [facility] 04-06-2022 09:36-0400 Systolic blood pressure 112 mm[Hg] Roselia Podlogar PAPER STRIPPER.LOSS PREVENTION LEAD Work Phone: [facility] 03-07-2022 11:12-0400 Body weight 114.76 kg Abdulaziz Caldera MD Work Phone: [facility] 03-07-2022 11:12-0400 Diastolic blood pressure 70 mm[Hg] Abdulaziz Caldera MD Work Phone: [facility] 03-07-2022 11:12-0400 Heart rate 64 /min Abdulaziz Caldera MD Work Phone: [facility] 03-07-2022 11:12-0400 Respiratory rate 16 /min Abdulaziz Caldera MD Work Phone: [facility] 03-07-2022 11:12-0400 Systolic blood pressure 118 mm[Hg] Abdulaziz Caldera MD Work Phone: [facility] 03-05-2022 12:00-0400 Diastolic blood pressure 60 mm[Hg] Rosa Elena Lemon PT [facility] 03-05-2022 12:00-0400 Systolic blood pressure 112 mm[Hg] Rosa Elena Lemon PT [facility] 01-12-2022 08:00-0400 Diastolic blood pressure 78 mm[Hg] Rosa Elena Lemon PT [facility] 01-12-2022 08:00-0400 Systolic blood pressure 130 mm[Hg] Rosa Elena Lemon PT [facility] 01-05-2022 09:56-0400 Body height 185.4 cm Tamie Kaur MD Work Phone: [facility] 01-05-2022 09:56-0400 Body weight 111.58 kg Tamie Kaur MD Work Phone: [facility] 01-05-2022 09:56-0400 Diastolic blood pressure 62 mm[Hg] Tamie Kaur MD Work Phone: [facility] 01-05-2022 09:56-0400 Heart rate 58 /min Tamie Kaur MD Work Phone: [facility] 01-05-2022 09:56-0400 Respiratory rate 16 /min Tamie Kaur MD Work Phone: [facility] 01-05-2022 09:56-0400 SaO2% (BldA) [Mass fraction] 97 % Tamie Kaur MD Work Phone: [facility] 01-05-2022 09:56-0400 Systolic blood pressure 117 mm[Hg] Tamie Kaur MD Work Phone: [facility] 01-01-2022 10:12-0400 Body temperature 97.39 [degF] Abdulaziz Caldera MD Work Phone: [facility] 01-01-2022 10:12-0400 Body weight 111.77 kg Abdulaziz Caldera MD Work Phone: [facility] 01-01-2022 10:12-0400 Diastolic blood pressure 64 mm[Hg] Abdulaziz Caldera MD Work Phone: [facility] 01-01-2022 10:12-0400 Heart rate 47 /min Abdulaziz Cadlera MD Work Phone: [facility] 01-01-2022 10:12-0400 Respiratory rate 18 /min Abdulaziz Caldera MD Work Phone: [facility] 01-01-2022 10:12-0400 SaO2% (BldA) [Mass fraction] 98 % Abdulaziz Caldera MD Work Phone: [facility] 01-01-2022 10:12-0400 Systolic blood pressure 112 mm[Hg] Abdulaziz Caldera MD Work Phone: [facility] 01-01-2022 08:55-0400 Body weight 112.49 kg Justina Leonie PAPER STRIPPER.LOSS PREVENTION LEAD Work Phone: [facility] 01-01-2022 08:55-0400 Diastolic blood pressure 74 mm[Hg] Justina Leonie PAPER STRIPPER.LOSS PREVENTION LEAD Work Phone: [facility] 01-01-2022 08:55-0400 Heart rate 60 /min Justina Leonie PAPER STRIPPER.LOSS PREVENTION LEAD Work Phone: [facility] 01-01-2022 08:55-0400 Respiratory rate 18 /min Justina Leonie PAPER STRIPPER.LOSS PREVENTION LEAD Work Phone: [facility] 01-01-2022 08:55-0400 Systolic blood pressure 147 mm[Hg] Justina Leonie PAPER STRIPPER.LOSS PREVENTION LEAD Work Phone: [facility] 12-27-2021 21:22-0400 Diastolic blood pressure 71 mm[Hg] DR MELANIA WORKMAN MD [facility] 12-27-2021 21:22-0400 Heart rate 73 /min DR MELANIA WORKMAN MD [facility] 12-27-2021 21:22-0400 Respiratory rate 24 /min DR MELANIA WORKMAN MD [facility] 12-27-2021 21:22-0400 Systolic blood pressure 121 mm[Hg] DR MELANIA WORKMAN MD [facility] 12-27-2021 20:06-0400 Diastolic blood pressure 59 mm[Hg] DR MELANIA WORKMAN MD [facility] 12-27-2021 20:06-0400 Heart rate 80 /min DR MELANIA WORKMAN MD [facility] 12-27-2021 20:06-0400 Respiratory rate 26 /min DR MELANIA WORKMAN MD [facility] 12-27-2021 20:06-0400 Systolic blood pressure 112 mm[Hg] DR MELANIA WORKMAN MD [facility] 12-27-2021 19:19-0400 Body temperature 98.6 [degF] DR MELANIA WORKMAN MD [facility] 12-27-2021 19:19-0400 Diastolic blood pressure 76 mm[Hg] DR MELANIA WORKMAN MD [facility] 12-27-2021 19:19-0400 Heart rate 82 /min DR MELANIA WORKMAN MD [facility] 12-27-2021 19:19-0400 Respiratory rate 26 /min DR MELANIA WORKMAN MD [facility] 12-27-2021 19:19-0400 Systolic blood pressure 138 mm[Hg] DR MELANIA WORKMAN MD [facility] 12-27-2021 17:36-0400 Body temperature 102.56 [degF] DR MELANIA WORKMAN MD [facility] 12-27-2021 17:36-0400 Body weight [address] MELANIA WORKMAN MD [facility] 12-27-2021 17:36-0400 Heart rate 104 /min DR MELANIA WORKMAN MD [facility] 12-14-2021 15:10-0400 Body temperature 98.2 [degF] Abdulaziz Caldera MD Work Phone: [facility] 12-14-2021 15:10-0400 Body weight 110.77 kg Abdulaziz Caldera MD Work Phone: [facility] 12-14-2021 15:10-0400 Diastolic blood pressure 70 mm[Hg] Abdulaziz Caldera MD Work Phone: [facility] 12-14-2021 15:10-0400 Heart rate 54 /min Abdulaziz Caldera MD Work Phone: [facility] 12-14-2021 15:10-0400 Respiratory rate 16 /min Abdulaziz Caldera MD Work Phone: [facility] 12-14-2021 15:10-0400 SaO2% (BldA) [Mass fraction] 96 % Abdulaziz Caldera MD Work Phone: [facility] 12-14-2021 15:10-0400 Systolic blood pressure 130 mm[Hg] Abdulaziz Caldera MD Work Phone: [facility] 12-08-2021 16:23-0400 Diastolic blood pressure 64 mm[Hg] Abdulaziz Caldera MD Work Phone: [facility] 12-08-2021 16:23-0400 Heart rate 85 /min Abdulaziz Caldera MD Work Phone: [facility] 12-08-2021 16:23-0400 Systolic blood pressure 110 mm[Hg] Abdulaziz Caldera MD Work Phone: [facility] 10-23-2021 13:05-0400 Body temperature 97.3 [degF] Marcella Xavier PA-C Work Phone: [facility] 10-23-2021 13:05-0400 Body weight 114.58 kg Marcella Xavier PA-C Work Phone: [facility] 10-23-2021 13:05-0400 Diastolic blood pressure 56 mm[Hg] Marcella [place] PA-C Work Phone: [facility] 10-23-2021 13:05-0400 Heart rate 85 /min Marcella [place] PA-C Work Phone: [facility] 10-23-2021 13:05-0400 SaO2% (BldA) [Mass fraction] 98 % Mracella Xavier PA-C Work Phone: [facility] 10-23-2021 13:05-0400 Systolic blood pressure 132 mm[Hg] Marcella [place] PA-C Work Phone: [facility] 10-10-2021 10:07-0400 Diastolic blood pressure 68 mm[Hg] Richard Jones MD Work Phone: [facility] 10-10-2021 10:07-0400 Heart rate 69 /min Richard Jones MD Work Phone: [facility] 10-10-2021 10:07-0400 Respiratory rate 16 /min Richard Jones MD Work Phone: [facility] 10-10-2021 10:07-0400 SaO2% (BldA) [Mass fraction] 98 % Richard Jones MD Work Phone: [facility] 10-10-2021 10:07-0400 Systolic blood pressure 150 mm[Hg] Richard Jones MD Work Phone: [facility] 10-10-2021 08:01-0400 Body temperature 97 [degF] Richard Jones MD Work Phone: [facility] Encounters Encounter Date Encounter Type Care Provider Facility Start: 01-28-2023 Telephone encounter Luis Caldera MD Work Phone: [facility] [place] Procedures Date Procedure Procedure Detail Performing Clinician Start: 04-06-2022 INFLUENZA SEASONAL QUADRIVALENT HIGH DOSE AGE 65+ Roselia Podlogar PAPER STRIPPER.LOSS PREVENTION LEAD Work Phone: Start: 04-06-2022 PFIZER-BIONTECH COVI D-19 BIVALENT BOOSTER VACCINE, AGE 12+ YR Roselia Podlogar PAPER STRIPPER.LOSS PREVENTION LEAD Work Phone: Start: 04-06-2022 Adult depression scr eening assessment Roselia Podlogar PAPER STRIPPER.LOSS PREVENTION LEAD Work Phone: Start: 03-07-2022 PROTHROMBIN TIME/PT Chr mine Caldera MD Work Phone: Start: 03-07-2022 Adult depression scr eening assessment Abdulaziz Caldera MD Work Phone: Start: 01-09-2022 Echo tthrc r-t 2d w/wom-mode compl spec&colr d Justina E Leonie PAPER STRIPPER.LOSS PREVENTION LEAD Work Phone: Start: 01-01-2022 Urnls dip stick/tabl [...] Activity Detail Author Start: 10-11-2031 Colonoscopy COLONOSCOPY [facility] Start: 10-11-2031 COLORECTAL CANCER SCREENING COLORECTAL CANCER SCREENING [facility] Start: 10-10-2024 Colonoscopy COLONOSCOPY [facility] Start: 10-10-2024 COLORECTAL CANCER SCREENING COLORECTAL CANCER SCREENING [facility] Start: 01-05-2024 ANNUAL PCP TEAM CHRONIC DISEASE VISIT ANNUAL PCP TEAM CHRONIC DISEASE VISIT [facility] Start: 01-05-2024 BP CONTROLLED (<130/80) BP CONTROLLED (<130/80) [facility] Start: 12-04-2023 BP CONTROLLED (<130/80) BP CONTROLLED (<130/80) [facility] Start: 11-20-2023 ANNUAL PCP TEAM CHRONIC DISEASE VISIT ANNUAL PCP TEAM CHRONIC DISEASE VISIT [facility] Start: 11-20-2023 BP CONTROLLED (<130/80) BP CONTROLLED (<130/80) [facility] Start: 09-07-2023 BP CONTROLLED (<130/80) BP CONTROLLED (<130/80) [facility] Start: 08-13-2023 HEMOGLOBIN/HEMATOCRIT HEMOGLOBIN/HEMATOCRIT [facility] Start: 08-13-2023 SERUM CREATININE SERUM CREATININE [facility] Start: 08-09-2023 ANNUAL PCP TEAM CHRONIC DISEASE VISIT ANNUAL PCP TEAM CHRONIC DISEASE VISIT [facility] Start: 08-09-2023 BP CONTROLLED (<130/80) BP CONTROLLED (<130/80) [facility] Start: 07-12-2023 ANNUAL PCP TEAM CHRONIC DISEASE VISIT ANNUAL PCP TEAM CHRONIC DISEASE VISIT [facility] Start: 07-12-2023 BP CONTROLLED (<130/80) BP CONTROLLED (<130/80) [facility] Start: 04-17-2023 BP CONTROLLED (<130/80) BP CONTROLLED (<130/80) [facility] Start: 04-16-2023 ANNUAL PCP TEAM CHRONIC DISEASE VISIT ANNUAL PCP TEAM CHRONIC DISEASE VISIT [facility] Start: 04-06-2023 Adult depression screening assessment DEPRESSION SCREENING [facility] Start: 04-06-2023 ANNUAL PCP TEAM CHRONIC DISEASE VISIT ANNUAL PCP TEAM CHRONIC DISEASE VISIT [facility] Start: 04-06-2023 BP CONTROLLED (<130/80) BP CONTROLLED (<130/80) [facility] Start: 03-30-2023 3 comp foot exam completed DIABETIC FOOT EXAM [facility] Start: 03-15-2023 Influenza vaccination INFLUENZA (#1) [facility] Start: 03-07-2023 Adult depression screening assessment DEPRESSION SCREENING [facility] Start: 03-07-2023 ANNUAL PCP TEAM CHRONIC DISEASE VISIT ANNUAL PCP TEAM CHRONIC DISEASE VISIT [facility] Start: 03-07-2023 BP CONTROLLED (<130/80) BP CONTROLLED (<130/80) [facility] Start: 03-07-2023 SERUM CREATININE SERUM CREATININE [facility] Start: 03-05-2023 BP CONTROLLED (<130/80) BP CONTROLLED (<130/80) [facility] Start: 03-02-2023 Hepatitis B screening URINE ALBUMIN:CREATININE RATIO [facility] Start: 02-10-2023 Hemoglobin A1c/Hemoglobin.total in Blood HBA1C [facility] Start: 01-05-2023 BP CONTROLLED (<130/80) BP CONTROLLED (<130/80) [facility] Start: 01-01-2023 ANNUAL PCP TEAM CHRONIC DISEASE VISIT ANNUAL PCP TEAM CHRONIC DISEASE VISIT [facility] Start: 01-01-2023 BP CONTROLLED (<130/80) BP CONTROLLED (<130/80) [facility] Start: 01-01-2023 Hepatitis B surface antibody level LDL CHOLESTEROL [facility] Start: 01-01-2023 SERUM CREATININE SERUM CREATININE [facility] Start: 12-14-2022 ANNUAL PCP TEAM CHRONIC DISEASE VISIT ANNUAL PCP TEAM CHRONIC DISEASE VISIT [facility] Start: 12-08-2022 ANNUAL PCP TEAM CHRONIC DISEASE VISIT ANNUAL PCP TEAM CHRONIC DISEASE VISIT [facility] Start: 12-08-2022 BP CONTROLLED (<130/80) BP CONTROLLED (<130/80) [facility] Start: 09-06-2022 ANNUAL PCP TEAM CHRONIC DISEASE VISIT ANNUAL PCP TEAM CHRONIC DISEASE VISIT [facility] Start: 09-02-2022 Hemoglobin A1c/Hemoglobin.total in Blood HBA1C [facility] Start: 08-30-2022 SERUM CREATININE SERUM CREATININE [facility] Start: 08-09-2022 End: 10-09-2022 CBC W Auto Differential panel - Blood CBC + DIFF Lab Routine Type 2 diabetes mellitus with diabetic neuropathy, with long-term current use of insulin (HCC) Expected: 08/09/2022, Expires: 10/09/2022 [facility] Work Phone: Immunizations Immunization Date Immunization Notes Care Provider Fa cili 04-06-2022 COVID-19 booster vaccine, age 12+ yr, bivalent (PFIZER-BIONTECH) Roselia Podlogdavid PAPER STRIPPER.LOSS PREVENTION LEAD Work Phone: [facility] 04-06-2022 influenza, high-dose , quadrivalent vaccine (FLUZONE HIGH DOSE QUADRIVALENT) Roselia Raglandlogdavid PAPER STRIPPER.LOSS PREVENTION LEAD Work Phone: [facility] 06-14-2021 influenza, high-dose , quadrivalent vaccine (FLUZONE HIGH DOSE QUADRIVALENT) Abdulaziz Caldera MD Work Phone: [facility] Work Phone: 02-24-2021 zoster vaccine recombinant Abdulaziz Caldera MD Work Phone: [facility] 09-30-2020 COVID-19 vaccine, ag e 12+ yr (PFIZER-BIONTECH - PURPLE TOP) Abdulaziz Caldera MD Work Phone: [facility] 09-09-2020 COVID-19 vaccine, ag e 12+ yr (PFIZER-BIONTECH - PURPLE TOP) Abdulaziz Caldera MD Work Phone: [facility] 04-16-2020 influenza, high-dose , quadrivalent vaccine (FLUZONE HIGH DOSE QUADRIVALENT) Abdulaziz Caldera MD Work Phone: [facility] 03-14-2020 zoster vaccine recombinant Abdulaziz Caldera MD Work Phone: [facility] Work Phone: 04-02-2019 influenza, high dose seasonal, preservative-free Abdulaziz Caldera MD Work Phone: [facility] Work Phone: 04-15-2018 influenza, high dose seasonal, preservative-free Abdulaziz Caldera MD Work Phone: [facility] 06-13-2017 influenza, high dose seasonal, preservative-free Abdulaziz Caldera MD Work Phone: [facility] 06-20-2016 influenza, high dose seasonal, preservative-free Abdulaziz Caldera MD Work Phone: [facility] 11-24-2015 pneumococcal polysaccharide vaccine, 23 valent Abdulaziz Caldera MD Work Phone: [facility] 05-16-2015 influenza, high dose seasonal, preservative-free Abdulaziz Caldera MD Work Phone: [facility] 10-27-2014 pneumococcal conjuga te vaccine, 13 valent Abdulaziz Caldera MD Work Phone: [facility] 10-27-2014 zoster vaccine, live Socrates Caldera MD Work Phone: [facility] 06-11-2011 influenza virus vaccine, unspecified formulation Abdulaziz Caldera MD Work Phone: [facility] 12-25-2010 tetanus toxoid, redu veronika diphtheria toxoid, and acellular pertussis vaccine, adsorbed Abdulaziz Caldera MD Work Phone: [facility] 04-25-2009 pneumococcal polysaccharide vaccine, 23 valent Abdulaziz Caldera MD Work Phone: [facility] 03-21-2000 diphtheria and tetan us toxoids, adsorbed for pediatric use Abdulaziz Caldera MD Work Phone: [facility] Work Phone: 02-11-1961 poliovirus vaccine, inactivated Abdulaziz Caldera MD Work Phone: [facility] Work Phone: 03-25-1959 poliovirus vaccine, inactivated Abdulaziz Caldera MD Work Phone: [facility] Work Phone: 10-16-1956 poliovirus vaccine, inactivated Abdulaziz Caldera MD Work Phone: [facility] Work Phone: 01-12-1956 poliovirus vaccine, inactivated Abdulaziz Caldera MD Work Phone: [facility] Work Phone: 12-03-1955 poliovirus vaccine, inactivated Abdulaziz Caldera MD Work Phone: [facility] Work Phone: Payers Date Payer Category Payer Unknown HOSPITAL/MEDICAL GENERIC MEDICAL GENERIC [id number] 2012-Present [phone] [address] [place] [address] Indemnity [id number] 2012 Unknown HOSPITAL/MEDICAL GENERIC MEDICAL GENERIC [id number] 2012-Present [phone] [address] [place] [address] Indemnity [id number] 2012 Unknown [id number] 2012 Medicare MEDICARE MEDICAR E A AND B [id number] 2012-Present [phone] [place] [address] Medicare [id number] 2012 Medicare MEDICARE MEDICAR E A AND B [id number] 2012-Present [phone] [place] [address] Medicare [id number] 2012 Medicare [id number] 1945 Unknown [id number] Social History Date Type Detail Facility Start: 11-23-2020 End: 04-06-2022 Tobacco smoking status NHIS Never smoked tobacco [facility] Start: 09-06-2021 End: 12-03-2022 Alcohol intake Current non-drinker of alcohol (finding) [facility] Start: 1945 Sex Assigned At Not on file [facility] Start: 08-07-2021 End: 04-17-2022 Exposure to SARS-CoV-2 (event) Not sure [facility] Tobacco smoking status No Smokin g Status Entered [facility] Sex Assigned At Male [facility] Start: 01-02-2022 End: 01-12-2022 Exposure to SARS-CoV-2 (event) Unable to assess [facility] Work Phone: Start: 11-23-2020 End: 04-06-2022 Tobacco use and exposure Smokeless tobacco non-user [facility] Work Phone: Start: 11-19-2022 End: 12-03-2022 History of Social function [facility] Work Phone: Start: 11-19-2022 End: 12-03-2022 Tobacco use panel [facility] Work Phone: Adult Depression Screening Assessment 2 [facility] Work Phone: Medical Equipment Procedure Code [...] Note Patient Outreach (EVELYN ROGERS) RICHARD ROY ([id number]) 1945 M Date Time Provider Department 05/28/23 GUDELIA HUITRON During your visit today, we recorded the following information about you: Gudelia Huitron MA 05/28/2023 12:44 PM Signed POPULATION HEALTH NAVIGATION OUTREACH Action/FYI NO ANSWER [email or web address] MESSAGE SENT ANNUAL MEDICARE WELLNESS Advance Directive Discussion Never done HbA1C due on 02/10/2023 Influenza Vaccine(1) due on 03/15/2023 Patient Identified by Name and : NO Outreach Outcome/Action Unable to reach patient: Phone number not valid / voicemail full [employer] message sent Did you use a PCP [...] time a week. - blood sugar diagnostic (VB Rags ULTRA TEST) test strip Test blood sugar(s) [...] due to im (more content not included)... [facility] 05-28-2023 Note HNO ID: [id number] Author: Gudelia Huitron MA Service: ? Author Type: Gambling Supervisor Type: Progress Notes Filed: 05/28/2023 12:44 PM Note Text: POPULATION HEALTH NAVIGATION OUTREACH Action/I NO ANSWER [email or web address] MESSAGE SENT ANNUAL MEDICARE WELLNESS Advance Directive Discussion Never done HbA1C due on 02/10/2023 Influenza Vaccine(1) due on 03/15/2023 Patient Identified by Name and : NO Outreach Outcome/Action Unable to reach patient: Phone number not valid / voicemail full [employer] message sent Did you use a PCP [...] Huitron MA May 28, 2023 7:41 AM [facility] 02-12-2023 Note Patient Outreach (IN TMM[facility]) RICHARD ROY ([id number]) 1945 M Date Time Provider Department 02/12/23 ABDULAZIZ CALDERA During your visit today, we recorded the following information about you: Allergies As of Date: 02/12/2023 Noted Allergy Reaction PANTOPRAZOLE 09/24/2019 6 - Diarrhea Date Reviewed: 01/04/2023 Reviewed by: Tamika Grijalva LPN - Fully Assessed Visit Diagnosis:Diabetic retinopathy of right eye (HCC) [E11.319] Order(s):HGB A1C [GHOVI5X] Order #: [id number] FUTURE Prescriptions as of 02/15/2023 - metFORMIN [...] Encounter Status:Closed by SOLA RANDLE on 02/15/23 [facility] 01-28-2023 Miscellaneous Notes Miya with [facility] calls to report pt was admitted to their facility over the weekend. Miya is requesting immunization record be faxed to: [phone]. Immunization record faxed as requested. Tania Heller LPN documented in this encounter [facility] 01-24-2023 Miscellaneous Notes Phoned patient's and [...] Patient's calling to say patient was at [facility] for rehabilitation after his hospitalization @ [facility] for confusion on 01/04. He was sent by squad to [facility] from [facility] on 01/21 due to episode of [...] post hospital stay but it won't be [facility]. Vannessa Jorge, JACEY documented in this encounter [facility] 01-04-2023 Note HNO ID: [id number] Author: Abdulaziz Caldera MD Service: ? 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 ([facility]) 05/25/2018 History of transfusion Hyperlipidemia LDL goal < 100 04/01/2012 NSTEMI (non-ST elevated myocardial infarction) ([facility]) Pulmonary embolus, right ([facility]) 09/25/2013 Status post aortic valve repair 2005 Thoracic aneurysm without mention of rupture Type 2 diabetes mellitus with stage 3 chronic kidney disease, with long-term current use of insulin ([facility]) 06/20/2016 Vitamin D deficiency 01/03/2022 Previous Surgical History PAST SURGICAL HISTORY Procedure Laterality Date ABDOMINAL SURGERY HX AMPUTATION METATARSAL+TOE,SINGLE Right 05/25/2018 with delayed closure on 05/28/18. Dr. Obregon at [facility] COLONOSCOPY 10/10/2021 repeat in 3 years [...] Yes Current Facility-Administ (more content not included)... [facility] 01-04-2023 Miscellaneous Notes Pt was seen in [...] recommend ER evaluation. documented in this encounter [facility] 01-04-2023 Miscellaneous Notes No return call [...] Vannessa Jorge RN documented in this encounter [facility] 01-03-2023 Note HNO ID: [id number] Author: Justina Escoto PT Service: ? Author [...] included: Therapeutic exercise, Neuromuscular re-education, Therapeutic activities, Self-jail management, and Gait training. Goals for Episode [...] PARTIALLY MET, improved 8 to 9 reps [place] in home exercise program including cardiovascular exercise. [...] in proper exercise (more content not included)... [facility] 01-03-2023 History of Presen t illness Narrative [...] included: Therapeutic exercise, Neuromuscular re-education, Therapeutic activities, Self-jail management, and Gait training. Goals for Episode [...] PARTIALLY MET, improved 8 to 9 reps [place] in home exercise program including cardiovascular exercise. [...] with an (*). Patient education as noted. Self-Correction Management: 1: *strongly enouraged f/u with physician [...] Justina Escoto PT documented in this encounter [facility] 12-31-2022 Note HNO ID: [id number] Author: Justina Escoto PT Service: ? Author [...] Treatment Time Minutes (timed/untimed): 42 Ira Ramos, STEAM TRAIN DRIVER Justina Escoto, PT [facility] 12-31-2022 History of Presen t illness Narrative [...] ALISIA Burch PT documented in this encounter [facility] 12-27-2022 Note HNO ID: [id number] Author: Justina Escoto PT Service: ? Author [...] Treatment Time Minutes (timed/untimed): 40 Ira Ramos, STEAM TRAIN DRIVER Justina Escoto, PT [facility] 12-27-2022 History of Presen t illness Narrative [...] ALISIA Burch PT documented in this encounter [facility] 12-24-2022 Note HNO ID: [id number] Author: Justina Escoto PT Service: ? Author [...] was facilitated with verbal and visual cueing. Self-Correction Management: 1: *strongly encouraged pt. to be [...] Time Minutes (timed/untimed): 40 Justina Escoto, PT [facility] 12-24-2022 History of Presen t illness Narrative [...] was facilitated with verbal and visual cueing. Self-Correction Management: 1: *strongly encouraged pt. to be [...] Justina Escoto PT documented in this encounter [facility] 12-17-2022 Note HNO ID: [id number] Author: Justina Escoto PT Service: ? Author [...] of gait belt. Patient education as noted. Self-Correction Management: 1: *discussed automatic lights 2: *discussed [...] Time Minutes (timed/untimed): 40 Justina Escoto, PT [facility] 12-17-2022 History of Presen t illness Narrative [...] of gait belt. Patient education as noted. Self-Correction Management: 1: *discussed automatic lights 2: *discussed [...] Justina Escoto PT documented in this encounter [facility] 12-14-2022 Note HNO ID: [id number] Author: Justina Escoto PT Service: ? Author [...] Time Minutes (timed/untimed): 40 Justina Escoto, PT [facility] 12-14-2022 History of Presen t illness Narrative [...] Justina Escoto PT documented in this encounter [facility] 12-12-2022 Note HNO ID: [id number] Author: Justina Escoto PT Service: ? Author [...] Time Minutes (timed/untimed): 40 Justina Escoto, PT [facility] 12-12-2022 History of Presen t illness Narrative [...] Justina Escoto PT documented in this encounter [facility] 12-06-2022 Note HNO ID: [id number] Author: Justina Escoto, PT Service: ? Author [...] Time Minutes (timed/untimed): 40 Justina Escoto, PT [facility] 12-03-2022 Note HNO ID: [id number] Author: Bobbi Garcia MD Service: ? Author Type: Physician Type: Progress Notes Filed: 12/03/2022 12:13 PM Note Text: [facility]AL CARDIOLOGY Cardiology ([facility]) [address] [facility] [id number] OUTPATIENT VISIT DATE 12/03/2022 PRIMARY CARE PHYSICIAN: Abdulaziz Caldera [address] [place] [address] HISTORY OF PRESENT ILLNESS: Mr. 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 ([facility]) 05/25/2018 History of transfusion Hyperlipidemia LDL goal < 100 04/01/2012 NSTEMI (non-ST elevated myocardial infarction) ([facility]) Pulmonary embolus, right ([facility]) 09/25/2013 Status post aortic valve repair 2005 Thoracic aneurysm without mention of rupture Type 2 diabetes mellitus with stage 3 chronic kidney disease, with long-term current use of insulin ([facility]) 06/20/2016 Vitamin D deficiency 01/03/2022 PAST SURGICAL HISTORY Procedure Laterality Date ABDOMINAL SURGERY HX AMPUTATION METATARSAL+TOE,SINGLE Right 05/25/2018 with delayed closure on 05/28/18. Dr. Obregon at [facility] COLONOSCOPY 10/10/2021 repeat in 3 years [...] 5 EachRfl: 5 warfarin (COUMADIN) 5 mg [id number] mg Saturday and Saturday, 7.5 mg all [...] Units subcutaneously daily (more content not included)... [facility] 12-03-2022 Note HNO ID: [id number] Author: Justina Escoto, PT Service: ? Author [...] facilitated with verbal, visual, and tactile cueing. Self-Correction Management: 1: *at length discussed importance of letting physician know about pt. concerns with his loss of interest in things prior to COVID-19 pandemic 2: *discussed that motivation will come from the pt. not from the or the therapist -- and this will directly influence pt. terminal manager progress. 3: *discussed with and pt. that pt. stating I'm lazy. is not his personality and pt. states that he does not want to be this way, but he wants to be comfortable. (more content not included)... [facility] 11-29-2022 Note HNO ID: [id number] Author: Justina Escoto, PT Service: ? Author [...] 11 repetitions to reflect decreased fall risk. [place] in home exercise program including cardiovascular exercise. [...] Planned: 12 Planned Treatment Interventions: Therapeutic exercise (76731), Neuromuscular re-education (20004), Manual therapy (30847), Therapeutic activities (26667), Self-jail management (73642), Gait Training (48974), Patient/Family/Caregiver Education PLAN FOR NEXT VISIT: Assess [...] <20 [facility] (more content not included)... [facility] 11-20-2022 Miscellaneous Notes OMAR 11/19/22 Appointment scheduled [...] to the pharmacy. Please call patient at: [phone]. Nola Castro Pss documented in this encounter [facility] 11-19-2022 Miscellaneous Notes Pt notified of [...] result): 09/24/2022 2.5 documented in this encounter [facility] 11-19-2022 Note HNO ID: [id number] Author: Abdulaziz Caldera MD Service: ? 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 ([facility]) 05/25/2018 History of transfusion Hyperlipidemia LDL goal < 100 04/01/2012 NSTEMI (non-ST elevated myocardial infarction) ([facility]) Pulmonary embolus, right ([facility]) 09/25/2013 Status post aortic valve repair 2004 Thoracic aneurysm without mention of rupture Type 2 diabetes mellitus with stage 3 chronic kidney disease, with long-term current use of insulin ([facility]) 06/20/2016 Vitamin D deficiency 01/03/2022 Previous Surgical History PAST SURGICAL HISTORY Procedure Laterality Date ABDOMINAL SURGERY HX AMPUTATION METATARSAL+TOE,SINGLE Right 05/25/2018 with delayed closure on 05/28/18. Dr. Obregon at [facility] COLONOSCOPY 10/10/2021 repeat in 3 years [...] chloride 0.9 % (more content not included)... [facility] 10-22-2022 Note HNO ID: [id number] Author: Arminda Obregon Service: ? Author Type: [...] RTC in 3-4 months. Arminda Obregon DPM [facility] 10-22-2022 Note HNO ID: [id number] Author: Blaire Sandoval RN Service: ? Author Type: ? Type: Progress Notes Filed: 10/22/2022 3:47 PM Note Text: Patient presents with: Left Foot - Established Patient, Diabetic Foot Care Right Foot - Established Patient, Diabetic Foot Care [facility] 10-22-2022 History of Presen t illness Narrative [...] Diabetic Foot Care documented in this encounter [facility] 10-22-2022 Instructions Arminda Obregon - 10/22/2022 [...] (or decreased sensation in your feet) a j2ee java developer should always cut your toenails. Be Careful [...] Go to your health care provider or j2ee java developer to treat these conditions. documented in this encounter [facility] 09-25-2022 Miscellaneous Notes Patient notified. Voices [...] or narrative: no documented in this encounter [facility] 09-07-2022 Note HNO ID: [id number] Author: Tamie Kaur MD Service: ? Author [...] evaluation of folllow up after hospitalization in [facility]. 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 ([facility]) 05/25/2018 History of transfusion Hyperlipidemia LDL goal < 100 04/01/2012 NSTEMI (non-ST elevated myocardial infarction) ([facility]) Pulmonary embolus, right ([facility]) 09/25/2013 Status post aortic valve repair 2004 Thoracic aneurysm without mention of rupture Type 2 diabetes mellitus with stage 3 chronic kidney disease, with long-term current use of insulin ([facility]) 06/20/2016 Vitamin D deficiency 01/03/2022 PSH: PAST SURGICAL HISTORY Procedure Laterality Date ABDOMINAL SURGERY HX AMPUTATION METATARSAL+TOE,SINGLE Right 05/25/2018 (more content not included)... [facility] 09-07-2022 Miscellaneous Notes Call to patient. Provided number to schedule- [phone]. Offered to transfer patient to schedule but patient declined to schedule stating he could call later. PAOLA Potter, RN September 07, 2022 1:11 PM Suzanne please let patient know how to proceed with driving evaluation I already put the order in computer documented in this encounter [facility] 09-07-2022 History of Presen t illness [...] evaluation of folllow up after hospitalization in [facility]. 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 ([facility]) 05/25/2018 History of transfusion Hyperlipidemia LDL goal < 100 04/01/2012 NSTEMI (non-ST elevated myocardial infarction) ([facility]) Pulmonary embolus, right ([facility]) 09/25/2013 Status post aortic valve repair 2005 Thoracic aneurysm without mention of rupture Type 2 diabetes mellitus with stage 3 chronic kidney disease, with long-term current use of insulin ([facility]) 06/20/2016 Vitamin D deficiency 01/03/2022 PSH: PAST SURGICAL HISTORY Procedure Laterality Date ABDOMINAL SURGERY HX AMPUTATION METATARSAL+TOE,SINGLE Right 05/25/2018 with delayed closure on 05/28/18. Dr. Obregon at [facility] COLONOSCOPY 10/10/2021 repeat in 3 years [...] one time a week. blood sugar diagnostic ([employer] Rags ULTRA TEST) test strip Test blood sugar(s) [...] gait ,unsteady Cannot tandem Tamie Kaur M.D. [facility] [place] Department of Neurology Total time in minutes [...] on at night. documented in this encounter [facility] 08-28-2022 Miscellaneous Notes Phoned patient and [...] debra Heller LPN documented in this encounter [facility] 08-16-2022 Miscellaneous Notes Patient has been [...] patient. Grecia Bustillo documented in this encounter [facility] 08-14-2022 Miscellaneous Notes Phoned patient and [...] or narrative: no documented in this encounter [facility] 08-09-2022 Note HNO ID: [id number] Author: Abdulaziz Caldera MD Service: ? Author [...] 12 months ago. Going to schedule appointment [facility] [place]. 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 Asymtpomatic still on medical management. Has completed his home PT/OT. Echo and stress test at [facility] were negative/normal. Has follow up with Dr. Garcia on 12/03. questioning if they should be seen sooner. BP well controlled with current regimen <130/80. BPH: With use of flomax, patient is getting up once at night to urinate. Has weak stream, but denies straining, incomplete emptying, dysuria, hematuria, incontinence. Followed up with ENT in [place] for chronic frontal sinusitis on CT/MRI going [...] delayed closure on 05/28/18. Dr. Obregon at [facility] COLONOSCOPY 10/10/2021 repeat in 3 years [...] daily. For cholesterol. (more content not included)... [facility] 08-09-2022 History of Presen t illness Narrative [...] 12 months ago. Going to schedule appointment [facility] [place]. 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 Asymtpomatic still on medical management. Has completed his home PT/OT. Echo and stress test at [facility] were negative/normal. Has follow up with Dr. Garcia on 12/03. questioning if they should be seen sooner. BP well controlled with current regimen <130/80. BPH: With use of flomax, patient is getting up once at night to urinate. Has weak stream, but denies straining, incomplete emptying, dysuria, hematuria, incontinence. Followed up with ENT in [place] for chronic frontal sinusitis on CT/MRI going [...] 100 04/01/2012 Pulmonary embolus, right ([facility]) 09/25/2013 Status post aortic valve repair 2005 Thoracic aneurysm without mention of rupture Type 2 diabetes mellitus with stage 3 chronic kidney disease, with long-term current use of insulin ([facility]) 06/20/2016 Vitamin D deficiency 01/03/2022 Previous Surgical History PAST SURGICAL HISTORY Procedure Laterality Date ABDOMINAL SURGERY HX AMPUTATION METATARSAL+TOE,SINGLE Right 05/25/2018 with delayed closure on 05/28/18. Dr. Obregon at [facility] COLONOSCOPY 10/10/2021 repeat in 3 years [...] by mouth once daily. blood sugar diagnostic ([employer] ULTRA TEST) test strip Test blood sugar(s) [...] Abs Lymph 1.00 - 4.00 k/uL 1.81 Prentiss% % 6.9 Abs Prentiss <0.87 k/uL 0.86 Eosin% % 3.1 Abs [...] long-term current use of insulin ([facility]) - ICD9: 250.60, 357.2, V58.67, ICD10: E11.40, Z79.4 (primary diagnosis) improved control - Continue current medications - Blood glucose monitoring on a four times a day schedule - Encouraged regular aerobic exercise and weight loss - Follow up in 6 months, sooner should any other issues arise. - Discussed diabetic education issues of terminal manager diabetic complications, hypoglycemic symptoms, hyperglycemic symptoms, diet, [...] with type 2 diabetes mellitus ([facility]) - ICD9: 250.60, 357.2, ICD10: E11.42 Controlled on current regimen. 3. NSTEMI (non-ST elevated myocardial infarction) ([facility]) - ICD9: 410.70, ICD10: I21.4 Patient [...] Abdulaziz Caldera MD documented in this encounter [facility] 08-06-2022 Miscellaneous Notes Phoned patient and updated him with provider's message. Patient voiced understanding. I would not recommend a baby ASA for this patient. Pt called to check on refill on baby aspirin. This is not on med list. Pt asking if he should be taking this. Please advise pt. Mila Castro LPN documented in this encounter [facility] 08-06-2022 Note HNO ID: [id number] Author: Arminda Jaimes MD Service: ? Author [...] physician via mail or electronic medical record. [facility] 08-06-2022 History of Presen t illness Narrative [...] electronic medical record. documented in this encounter [facility] 07-31-2022 Miscellaneous Notes Spoke with patient [...] Rebecca Esteban LPN documented in this encounter [facility] 07-27-2022 Miscellaneous Notes iPinYou message not read as of 07/27/2022. Called and spoke with patient. Appt rescheduled to 09/07/2022 at 11:00 AM Meghana Burgess Due to change in provider's schedule, appt on 08/21/2022 needs rescheduled. Patient notified via iPinYou message on 07/05/2022. Meghana Burgess documented in this encounter [facility] 07-26-2022 Miscellaneous Notes Thanks. Darlyn, a nurse with [facility] calling to state she has [facility] pt [facility] today. Pt is doing really well. No call back needed. Thank you. documented in this encounter [facility] 01-11-2023 Miscellaneous Notes Last Office Visit: 07/12/2022 Future Office Visit: 08/09/2022 Requested Prescriptions Pending Prescriptions Disp Refills amLODIPine (NORVASC) 2.5 mg tablet 30 tablet 5 Sig: Take 1 tablet by mouth once daily. Date of Last Labs: 03/02/2022 documented in this encounter [facility] 07-17-2022 Miscellaneous Notes Reviewed and agree. Maverick PT calling from [facility] to report plan of care for patient and PT will visit patient 2 times a week for 3 weeks. PT will work with patient on functional mobility training. Halima Diaz RN documented in this encounter [facility] 07-17-2022 Miscellaneous Notes Reviewed. Barbi from [facility] calling with OT plan of care, one time visit only, patient denies any further OT needs. No call back needed. documented in this encounter [facility] 07-13-2022 Miscellaneous Notes Left detailed message on confidential line Ewa Andino Ma agree Chiki, a nurse with [facility] calling with Alf Plan of Care for patient: Patient will be seen 1 time per week for 4 weeks for BP monitoring. No call back needed if provider agreeable. Thank you. documented in this encounter [facility] 07-12-2022 Note HNO ID: [id number] Author: Abdulaziz Caldera MD Service: ? Author Type: Physician Type: Progress Notes Filed: 07/17/2022 8:33 AM Note Text: Chief Complaint Patient presents with: Hospital F/U: Admitted 07/09/22 discharged 07/11/22 HPI Richard Roy is a 76 year old male who presents here today for Hospital Discharge Follow up.. Patient was admitted to [facility] from 07/09 to 07/11 after presenting [...] to follow up with our office and excelsior machine feeder. 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 ([facility]) 05/25/2018 History of transfusion Hyperlipidemia LDL goal < 100 04/01/2012 Pulmonary embolus, right ([facility]) 09/25/2013 Status post aortic valve repair 2004 Thoracic aneurysm without mention of rupture Type 2 diabetes mellitus with stage 3 chronic kidney disease, with long-term current use of insulin ([facility]) 06/20/2016 Vitamin D deficiency 01/03/2022 Previous Surgical History PAST SURGICAL HISTORY Procedure Laterality Date ABDOMINAL SURGERY HX AMPUTATION METATARSAL+TOE,SINGLE Right 05/25/2018 with delayed closure on 05/28/18. Dr. Obregon at [facility] COLONOSCOPY 10/10/2021 repeat in 3 years [...] 0.4 mg Take (more content not included)... [facility] 07-12-2022 Miscellaneous Notes Karly was notified Ewa Andino Ma Agree and will follow Karly with [facility] called and reports Pt was discharged yesterday and they received a referral for PT/OT/SN. They are going to do their start of care tomorrow, and she was asking if the provider would be willing to follow. documented in this encounter [facility] 07-09-2022 Miscellaneous Notes Last Office Visit: 04/16/2022 Future Office Visit: 09/17/2022 Requested Prescriptions Pending Prescriptions Disp Refills dulaglutide (TRULICITY) 1.5 mg/0.5 mL pen injector 12 Each 3 Sig: Inject 1.5 mg subcutaneously one time a week. Inject once per week. Discard Pen After Date of Last Labs: 03/02/2022 documented in this encounter [facility] 07-03-2022 Note HNO ID: [id number] Author: Arminda Obregon Service: ? Author Type: [...] RTC in 3-4 months. Arminda Obregon DPM [facility] 07-03-2022 Note HNO ID: [id number] Author: Marcella Cox RN Service: ? Author Type: Registered Nurse Type: Progress Notes Filed: 07/03/2022 11:17 AM Note Text: Patient presents with: Left Foot - Established Patient, Follow Up, nail care Right Foot - Established Patient, Follow Up, nail care [facility] 07-02-2022 Note HNO ID: [id number] Author: Bobbi Garcia MD Service: ? Author Type: Physician Type: Progress Notes Filed: 07/02/2022 12:42 PM Note Text: [facility]AL CARDIOLOGY Cardiology ([facility]) [address] [facility] [id number] OUTPATIENT VISIT DATE 07/02/2022 PRIMARY CARE PHYSICIAN: Abdulaziz Caldera [address] [place] [address] HISTORY OF PRESENT ILLNESS: Mr. Roy is [...] HISTORY: From Last OV with Justina Hadley [facility] 01/01/2022: Richard Roy is a 76 year old male who presents for routine follow up. 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 His accompanies him for his office visit today. They both explain to me he was hospitalized at [facility] for 2 days last week for [...] LE swelling. Records have been requested from [facility]. He is unsure of what testing was completed. An echocardiogram was ordered at his last office visit with me. If this was not completed at [facility], I recommend this be completed for further cardiac evaluation. PAST MEDICAL HISTORY Diagnosis Date BPH (benign prostatic hyperplasia) Cholelithiasis 09/25/2013 Chronic neutrophilia Benign-Dr. 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 Dr. Obregon at [facility] COLONOSCOPY 10/10/2021 repeat in 3 years [...] at bedtime.Disp: 3 (more content not included)... [facility] 06-25-2022 Miscellaneous Notes Last appt: 04/16/22 - [...] Tania Heller LPN documented in this encounter [facility] 05-16-2022 Miscellaneous Notes Patient has been [...] Mila Castro LPN documented in this encounter [facility] 04-17-2022 History of Presen t illness [...] evaluation of folllow up after hospitalization in [facility]. he was admitted because of syncopal [...] others Since covid hit they went to [facility] and was staying in the [...] delayed closure on 05/28/18. Dr. Obregon at [facility] COLONOSCOPY 10/10/2021 repeat in 3 years [...] week. Discard Pen After blood sugar diagnostic (VB Rags ULTRA TEST) test strip Test blood sugar(s) [...] gait ,unsteady Cannot tandem Tamie Kaur M.D. [facility] [place] Department of Neurology Total time in minutes [...] on at night. documented in this encounter [facility] 04-17-2022 Miscellaneous Notes Reviewed. Behavioral Health Social Work Progress Note Patient identified for [facility] from: PCP Reason for referral: Resources Behavioral Health Resources: Psychology - talk therapy [facility] encounter type: Telephone Encounter Attempts to Outreach: 1 attempt Referral made: Psychology - External Psychology-External referral type: Therapy Reason for external referral: Wait times at [facility] too long Final Disposition: Resources given Patient Discharged?: Yes Patient reported that caregiver was able to meet their needs today?: Yes SW placed a phone call to patient at the request of the PCP. Pt reported he is looking for talk therapy referrals at this time. SW provided the following referrals via phone: [facility] [address], [facility], [facility] [address] *[facility]ing [facility] [address] [address] *counseling [facility] [address], [address] [place] [address] *counseling [facility] [address] [place] [address] FEDERICO Zamudio April 17, 2022 documented in this encounter [facility] 04-16-2022 History of Presen t illness [...] Diabetic retinopathy of right eye ([facility]) mild Diverticulosis of colon (without mention [...] delayed closure on 05/28/18. Dr. Obregon at [facility] COLONOSCOPY 10/10/2021 repeat in 3 years [...] week. Discard Pen After blood sugar diagnostic (ClassifEyeTOUCH ULTRA TEST) test strip Test blood sugar(s) [...] Abs Lymph 1.00 - 4.00 k/uL 1.81 Prentiss% % 6.9 Abs Prentiss <0.87 k/uL 0.86 Eosin% % 3.1 Abs [...] long-term current use of insulin ([facility]) - ICD9: 250.40, 585.3, V58.67, ICD10: [...] Abdulaziz Caldera MD documented in this encounter [facility] documented in this encounter [facility] History of Present illness Narrative* Roselia Madrigal, PAPER STRIPPER.LOSS PREVENTION LEAD - 04/06/2022 9:40 AM EDT 04/06/2022 Patient [...] Diabetes mellitus with neurological manifestation ([facility]) 09/08/2010 Diverticulosis of colon (without mention of hemorrhage) Encounter for monitoring Coumadin therapy 09/23/2013 INR goal 2.5-3.5 Essential hypertension, benign 10/28/2012 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 FOR CHOLESTEROL. blood sugar diagnostic (VB Rags ULTRA TEST) test strip Test blood sugar(s) [...] SEASONAL QUADRIVALENT HIGH DOSE AGE 65+ - [employer] COVID-19 BIVALENT BOOSTER VACCINE, AGE 12+ YR [...] which included preparing to see the patient, [id number] patient care, completing clinical documentation, obtaining and/or reviewing separately obtained history, performing a medically appropriate examination, and counseling and educating the patient/family/caregiver. [facility] Miscellaneous Notes* Telephone Encounter - Valencia [...] AM EDT ----- Message from Roselia Madrigal APRN.LOSS PREVENTION LEAD sent at 04/03/2022 2:47 PM EDT ----- Please forward INR to doctor preparation plant supervisor Roselia Madrigal APRN.LOSS PREVENTION LEAD documented in this encounterH[facility] History of Present illness Narrative* Arminda [...] Care Merlene Martinez LPN documented in this encounterH[facility] Instructions* Patient Instructions* Arminda Obregon - [...] (or decreased sensation in your feet) a j2ee java developer should always cut your toenails. Be Careful [...] Go to your health care provider or j2ee java developer to treat these conditions. documented in [facility] History of Present illness Narrative* Rosa [...] 01/12/22 through 03/15/22 Goals updated on 03/23/2022. [place] in home exercise program. (Met) Patient will [...] Rosa Elena Poon PT documented in this encounterH[facility]09-[facility]22 Miscellaneous Notes* Telephone Encounter - Maggy Ibarra Pss - 03/22/2022 1:49 PM EDT Pharmacy verified in [facility] Patient has been identified by [...] advise. Maggy Ibarra Pss documented in this encounterH[facility]09-[facility] History of Present illness Narrative* Rosa Elena oPon, PT - 03/16/2022 7:05 AM EDT Episode [...] Treatment Time Minutes (timed/untimed): 40 Karen Weber, STEAM TRAIN DRIVER Rosa Elena Poon PT documented in this encounterH[facility]08[facility]22 History of Present illness Narrative* Rosa [...] 41 ALISIA Whiting PT documented in this encounterH[facility]08-26-2022 Miscellaneous Notes* Addendum Note - Rosa Elena Poon PT - 03/09/2022 1:18 PM EDTAddended by: ROSA ELENA POON on: 03/09/2022 01:18 PM Modules accepted: Orders documented in this encounterHarrison [facility]08-[facility]22 History of Present illness Narrative* Rosa [...] 01/12/22 through 03/15/22 Goals updated on 03/09/2022. [place] in home exercise program. (Met) Patient will [...] Patient to be seen for Therapeutic exercise (03179);Neuromuscular re-education (83751);Gait Training (80598);Patient/Family/Caregiver Education PLAN FOR NEXT VISIT: Add bridging [...] Rosa Elena Lemon, PT documented in this encounterH[facility]08-[facility]-2022 Miscellaneous Notes* Telephone Encounter - Amada [...] testing Madison Ma Cma documented in this encounterHarrison [facility] Hospital08-24-2022 Instructions* Patient Instructions* Abdulaziz Caldera MD - 03/07/2022 11:45 AM EDT Please take 2,000 units of vitamin D daily over the counter. documented in this encounterHarrison [facility]08-[facility]22 History of Present illness Narrative* Abdulaziz Caldera MD - 03/07/2022 11:19 AM EDT Chief Complaint Patient presents with: 6 Month Exam ER F/U HPI Richard Roy is a 76 year old male who presents here today for ER Follow Up.. 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 ([facility]) 05/25/2018 History of transfusion Hyperlipidemia LDL goal < 100 04/01/2012 Pulmonary embolus, right ([facility]) 09/25/2013 Status post aortic valve repair 2004 Thoracic aneurysm without mention of rupture Type 2 diabetes mellitus with stage 3 chronic kidney disease, with long-term current use of insulin([facility]) 06/20/2016 Vitamin D deficiency 01/03/2022 Previous Surgical History PAST SURGICAL HISTORY Procedure Laterality Date ABDOMINAL SURGERY HX AMPUTATION METATARSAL+TOE,SINGLE Right 05/25/2018 with delayed closure on 05/28/18. Dr. Obregon at [facility] COLONOSCOPY 10/10/2021 repeat in 3 years [...] ONCE DAILY. FOR CHOLESTEROL. blood sugar diagnostic (VB Rags ULTRA TEST) test strip Test blood sugar(s) [...] Abs Lymph 1.00 - 4.00 k/uL 1.81 Prentiss% % 6.9 Abs Prentiss <0.87 k/uL 0.86 Eosin% % 3.1 Abs [...] PANEL Abdulaziz Caldera MD documented in this encounterH[facility]08-[facility]22 History of Present illness Narrative* Rosa [...] Rosa Elena Poon PT documented in this encounterH[facility]08-19-2022 History of Present illness Narrative* Rosa [...] Rosa Elena Poon PT documented in this encounterH[facility]08-15-2022 History of Present illness Narrative* Rosa [...] Rosa Elena Poon PT documented in this encounterH[facility] Hospital08-12-2022 History of Present illness Narrative* Rosa [...] 43 ALISIA Whiting PT documented in this encounterHarrison [facility] Hospital08-03-2022 History of Present illness Narrative* Rosa [...] Rosa Elena Poon PT documented in this encounterHarrison [facility] Hospital07-29-2022 History of Present illness Narrative* Rosa [...] 01/12/22 through 03/15/22 Goals updated on 02/09/2022. [place] in home exercise program. (Met) Patient will [...] Patient to be seen for Therapeutic exercise (15271);Neuromuscular re-education (02198);Gait Training (66204);Patient/Family/Caregiver Education PLAN FOR NEXT VISIT: Continue to [...] Rosa Elena Poon PT documented in this encounterHarrison [facility] Hospital07-26-2022 Miscellaneous Notes* Telephone Encounter - Nola [...] patient. Nola Castro Pss documented in this encounterHarrison [facility] Hospital07-22-2022 History of Present illness Narrative* Cortney [...] 43 ALISIA Whiting, PT documented in this encounterH[facility]07-21-2022 Miscellaneous Notes* Telephone Encounter - Mila [...] No need to notify patient. Eulalia Gaston [facility] documented in this encounterHarrison [facility] Hospital07-19-2022 History of Present illness Narrative* Justina [...] 43 ALISIA Whiting PT documented in this encounterHarrison [facility] Hospital07-12-2022 Miscellaneous Notes* Telephone Encounter - Rebecca [...] you. Rebecca Gonzales RN documented in this encounterHarrison [facility] Hospital07-12-2022 History of Present illness Narrative* Chiki [...] 45 ALISIA Whiting PT documented in this encounterHarrison [facility] Hospital07-08-2022 Miscellaneous Notes* Telephone Encounter - Maggy [...] on driving. Please advise. documented in this encounterHarrison [facility] Hospital07-01-2022 History of Present illness Narrative* Rosa Elena Poon, PT - 01/12/2022 12:22 PM EDT Episode Visit Count: 1 Therapist That Will Oversee The Plan Of Care: RosaE lena Poon Start of Care Date: 01/12/22 Onset [...] of Care: created on 01/12/22 through 03/15/22 [place] in home exercise program. Patient will demonstrate [...] Planned: 16 Planned Treatment Interventions: Therapeutic exercise (54023);Neuromuscular re- education (64037);Gait Training (53333);Patient/Family/Caregiver Education PLAN FOR NEXT VISIT: Review HEP [...] foot with ER) General Deviations/Observations: Arm swing decreased;Mreari decreased;Wide base of support Balance Static Standing [...] Rosa Elena Poon PT documented in this encounterHarrison [facility] Hospital07-01-2022 Miscellaneous Notes* Telephone Encounter - Ewa [...] Pending consult. Please advise documented in this encounterHarrison [facility] Hospital06-29-2022 Miscellaneous Notes* Telephone Encounter - Mila [...] his syncope/collapse. Thank you! documented in this encounterHarrison [facility] Hospital06-29-2022 Miscellaneous Notes* Result QuickNote - Justina Hadley APRN.CNP - 01/10/2022 11:33 AM EDT Please call patient and notify him. Echocardiogram is stable. Valve replacement function is stable.No cardiac structure/function changes to explain his syncope/collapse. Thank you! documented in this encounterHarrison [facility] Hospital06-24-2022 History of Present illness Narrative* Tamie [...] REFERRING PHYSICIAN: Abdulaziz Caldera [address] [facility] [address] Accompanied by: Spouse ASSESSMENT: 76 year old [...] evaluation of folllow up after hospitalization in [facility]. he was admitted because of syncopal [...] others Since covid hit they went to [facility] and was staying in the [...] delayed closure on 05/28/18. Dr. Obregon at [facility] COLONOSCOPY 10/10/2021 repeat in 3 years [...] by mouth once daily. blood sugar diagnostic ([employer] CommunicationUCH ULTRA TEST) test strip Test blood sugar(s) [...] gait ,unsteady Cannot tandem Tamie Kaur M.D. [facility] [place] Department of Neurology January 05, 2022 Total [...] lights on at night. documented in this encounterHarrison Community Hospital06-21-2022 Miscellaneous Notes* Telephone Encounter - Justina Martinez LPN - 01/02/2022 8:06 AM EDT I spoke to and informed him of Justina's response to lipid panel results. Patient voiced understanding. Justina Martinez LPN * Telephone Encounter - Justina Martinez LPN - 01/02/2022 7:43 AM EDT ----- Message from Justina Hadley APRN.LOSS PREVENTION LEAD sent at 01/02/2022 7:38 AM EDT ----- Please call patient and notify him cholesterol has good control. Thank you! documented in this encounterHarrison [facility] Hospital06-20-2022 History of Present illness Narrative* Abdulaziz Caldera MD - 01/01/2022 10:20 AM EDT Chief Complaint Patient presents with: Hospital Follow Up: [facility] discharged 12/29/21 HPI Richard Roy is a 76 year old male who presents here today for Hospital Discharge Follow up. Accompanied today by his . Patient admitted to [facility] from 12/27 to 12/29 after presenting to the [facility] ED after being found slumped over his tractor at home earlier in the afteernoon. Had been working outside for unknown period of time. Had only eaten cookies and milk that day. Heat index over 100. Back to baseline at the time of evaluation by hospitalist at [facility]. Found to have leukocytosis at [place] [facility] and elevated lactic acid level. Noted [...] echo since it was not completed at [facility]. No other changes to regimen. Patient [...] with long-term current use of insulin([facility]) 06/20/2016 Previous Surgical History PAST SURGICAL HISTORY Procedure Laterality Date ABDOMINAL SURGERY HX AMPUTATION METATARSAL+TOE,SINGLE Right 05/25/2018 with delayed closure on 05/28/18. Dr. Obregon at [facility] COLONOSCOPY 10/10/2021 repeat in 3 years [...] by mouth once daily. blood sugar diagnostic (VB Rags ULTRA TEST) test strip Test blood sugar(s) [...] SCRN Abdulaziz Caldera MD documented in this encounterHarrison Community Hospital06-20-2022 Instructions* Patient Instructions* Justina Hadley APRN.LOSS PREVENTION LEAD - 01/01/2022 9:05 AM EDT High Blood [...] risk for high blood pressure. Developed by [employer]. Published by [employer]. Copyright 2014 [employer] and/or one of its subsidiaries. All rights reserved. documented in this encounterHarrison Community Hospital06-20-2022 History of Present illness Narrative* Justina [...] bothexplain to me he was hospitalized at [facility] for 2 days last week for [...] LE swelling. Records have been requested from [facility]. He is unsure of what testing was completed. An echocardiogram was ordered at his last office visit with me.If this was not completed at [facility], I recommend this be completed for further cardiac evaluation. PAST MEDICAL HISTORY Diagnosis Date Cholelithiasis 09/25/2013 Chronic neutrophilia Benign-Dr. 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 Dr. Obregon at [facility] COLONOSCOPY 10/10/2021 repeat in 3 years [...] injection (DEFINITY) INTRAVENOUS DIRECTED PRN Justina Hadley, PAPER STRIPPER.LOSS PREVENTION LEAD sodium chloride 0.9 % (flush) 10 mL (BD POSIFLUSH) 10 mL INTRAVENOUS DIRECTED PRN Justina Hadley, PAPER STRIPPER.LOSS PREVENTION LEAD Review of Systems Constitutional: Negative for chills, [...] of his head CAD -MILD on [facility] 2004 -stress testing 2013 with no [...] 01, 2022, 8:57 AM documented in this encounterHarrison Community Hospital06-19-2022 Note. MICRO - Microbiology PROCEDURE: Blood Culture (bacterial) [*1] SOURCE: Blood BODY SITE: COLLECTED DATE/TIME: 12/27/2021 17:43 EDT RECEIVED DATE/TIME: 12/28/2021 14:37 EDT START DATE/TIME: 12/28/2021 14:37 EDT FREE TEXT SOURCE: FINAL REPORTS Final Report [] Verified Date/Time/Personnel: 12/31/2021 07:29 EDT Staphylococcus epidermidis Isolated from anaerobe bottle only. Refer to previous culture for susceptibility. [id number] PRELIMINARY REPORTS Preliminary Report [] Verified Date/Time/Personnel: 12/30/2021 09:39 EDT Staphylococcus epidermidis Isolated from anaerobe bottle only. Refer to previous culture for susceptibility. [id number] Preliminary Report [] Verified Date/Time/Personnel: 12/28/2021 15:59 EDT Culture has been received in lab and is no growth to date. Routine cultures are held for 5 days. STAINS GSANA [] Verified Date/Time/Personnel: 12/29/2021 14:08 EDT Gram Positive Cocci in clusters Performing Locations *1: This test was performed at: [facility], [address] [place] [address], [facility] , [facility] ([place])12-31-2021 Note. MICRO - Microbiology PROCEDURE: Blood Culture [...] Locations *1: This test was performed at: [facility], [address] [place] [address], [id number] , [facility] ([place])12-27-2021 SARS-CoV-2 (COVID-19) RNA ANGELY+probe Ql (Nph)Positive 2 *ABN* (12/27/21 5:43 PM)AO Auto Urine SSComment on above:Result Comment: positive covid cvrb s. tona Evaluation + Plan note Diagnostic Tests Pending * Urinalysis 12/27/21 * Blood Culture (bacterial) 12/27/21 * Blood Culture (bacterial) 12/27/21 [facility] 06-02-2022 History of Present illness Narrative* Abdulaziz Caldera MD - 12/14/2021 3:13 PM EDT Chief Complaint Patient presents with: Covid Follow Up HPI Richard Roy is a 76 year old male who presents here today for Above Complaints.. Patient positive for COVID in the [facility] ER last week on 12/06. 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 Dr. Obregon at [facility] COLONOSCOPY 10/10/2021 repeat in 3 years [...] by mouth once daily. blood sugar diagnostic (ClassifEyeTOUCH ULTRA TEST) test strip Test blood sugar(s) [...] detail. Abdulaziz Caldera MD documented in [facility] History of Present illness Narrative* Abdulaziz [...] today for Above Complaints.. Patient evaluated at [facility] ER on 12/06 for complaint of generalized weakness, cough, and feeling off balance and developed cough which started on 12/04. Denied other COVID symptoms at that time. Lab workup in the ER was unremarkable aside from positive COVID test and INR of 3.3. UA unremarkable. CXR showed some ill defined densities in RLL which was likely 2/2 COVID infection. Hyndman to be well enough and discharged home [...] first toe of right foot ([facility]) 05/25/2018 History of transfusion Hyperlipidemia LDL goal < 100 04/01/2012 Pulmonary embolus, right ([facility]) 09/25/2013 Status post aortic valve repair 2005 Thoracic aneurysm without mention of rupture Type 2 diabetes mellitus with stage 3 chronic kidney disease, with long-term current use of insulin([facility]) 06/20/2016 Previous Surgical History PAST SURGICAL HISTORY Procedure Laterality Date ABDOMINAL SURGERY HX AMPUTATION METATARSAL+TOE,SINGLE Right 05/25/2018 with delayed closure on 05/28/18. Dr. Obregon at [facility] COLONOSCOPY 10/10/2021 repeat in 3 years [...] by mouth once daily. blood sugar diagnostic (VB Rags ULTRA TEST) test strip Test blood sugar(s) [...] these interactions. Not interested in driving to [facility] for IV ab. Since his symptoms are mild, he would prefer to rest at home. Discussed risks and benefits of treatment and that he is high risk for severe infection. Red flags for re-assessment reviewed with patient in detail. I spent a total of 25 minutes on the date of the service which included preparing to see the patient, [id number] patient care, completing clinical documentation, obtaining and/or reviewing separately obtained history, performing a medically appropriate examination, counseling and educating the pat ient/family/caregiver and ordering medications, tests, or procedures. Abdulaziz Caldera MD documented in this encounterH[facility]05-27-2022 Miscellaneous Notes* Telephone Encounter - Abdulaziz [...] Esteban LPN * Telephone Encounter - Abdulaziz aCldera MD - 12/08/2021 3:35 PM EDT Was he treated while he was in the hospital for COVID? Please pull ER report. Needs VV with one of our providers or with [employer] care online. * Telephone Encounter - Rosa Elena Martinez Pss - 12/08/2021 2:16 PM EDT Patient called stating he was at [facility] ER on 12/06. Tested positive for covid. Patient was informed tocontact the office within 5 days to inform. Please advise patient when he can be seen in office. documented in this encounterH[facility]05-09-2022 Miscellaneous Notes* Telephone Encounter - Eulalia Gaston [facility] - 11/20/2021 9:49 AM EDT Patient has been identified by name and date of : Yes Pending Prescriptions Disp Refills METFORMIN ER 500 MG 24 HR TABLET,EXTENDED RELEASE Sig: Take 1 tablet by mouth daily with breakfast. NUHA: No OMAR-09/06/21 Labs-08/30/21 NOV-03/07/22 RX INSTRUCTIONS: Patient aware RX will be sent to pharmacy. No need to notify patient. Eulalia [facility] documented in this encounterHarrison [facility] Hospital04-11-2022 Instructions* Patient Instructions* Marcella Park PA-C - 10/23/2021 1:25 PM EDT -Recommend daily fiber supplement and plenty of fluids The following instructions are important for you related to your office visit today with the [facility] General Surgeons. INSTRUCTIONS FOR DIVERTICULA I [...] you should contact our office immediately @ [phone] and ask to be transferred to the General Surgery department. The following instructions are important for you related to your office visit today with the [facility] Surgeons. INSTRUCTIONS FOLLOWING A POLYP [...] you should contact our office immediately @ [phone] and ask to be transferred to the General Surgery department. documented in this encounterHarrison [facility] Hospital04-11-2022 History of Present illness Narrative* Marcella Park PA-C - 10/23/2021 1:09 PM EDT FOLLOW UP VISIT - ENDOSCOPY NAME: Richard Bonilla [facility] NO.: [id number] DATE OF SERVICE: 10/23/2021 : 1945 REFERRING [...] which included preparing to see the patient, [id number] patient care, completing clinical documentation, obtaining and/or reviewing separately obtained history, counseling and educating the patient/family/caregiver, communicating with other HCPs (not separately reported), independently interpreting results (not separately reported) and communicating results to the patient/family/caregiver. Marcella Park PA-C documented in this encounterHarrison [facility] Hospital03-29-2022 Nurse Note* Caroline Larkin RN - [...] answered. 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 Dr. Obregon at [facility] COLONOSCOPY FLX DX W/COLLJ SPEC WHEN [...] by mouth once daily. blood sugar diagnostic ([place]ian[place] CommunicationUCH ULTRA TEST) test strip Test blood sugar(s) [...] patient was offered a surgery[facility]procedure [facility] a [facility]. I have counseled the patient [...] diagnosis) Marcella Park PA-C documented in this encounterHarrison [facility] Hospital03-24-2022 Miscellaneous Notes* Telephone Encounter - Mila [...] send both by 10/06/21, so he can moss picker. Patient aware RX will be sent to pharmacy. No need to notify patient. Violette Lockhart documented in this encounterHarrison [facility] Hospital03-23-2022 Miscellaneous Notes* Telephone Encounter - Nelson [...] advise, Halima Diaz RN documented in this encounterHarrison [facility] Hospital02-02-2022 Miscellaneous Notes* Telephone Encounter - Garalnd Vicente - 08/16/2021 9:36 AM EST 10-10-2021 [facility] documented in this encounterHarrison [facility] Hospital01-13-2022 NoteHNO ID: [id number] Author: REY Burt Service: Radiology Author Type: Freight Broker Type: Progress Notes Filed: 07/27/2021 10:50 AM [...] TIME: 10:49 [id number] History of Past illness Narrative* Problem Noted [...] of this encounter (statuses as of 10/04/2021) [facility] of [facility] Narrative* Problem [...] of this encounter (statuses as of 10/05/2021) [facility] Narrative* Problem [...] of this encounter (statuses as of 10/11/2021) [facility] Narrative* Problem [...] of this encounter (statuses as of 10/16/2021) [facility] Narrative* Problem [...] of this encounter (statuses as of 10/27/2021) [facility] Narrative* Problem [...] of this encounter (statuses as of 11/20/2021) [facility] Narrative* Problem [...] of this encounter (statuses as of 12/12/2021) [facility] Narrative* Problem [...] of this encounter (statuses as of 12/13/2021) [facility] Narrative* Problem [...] of this encounter (statuses as of 12/14/2021) [facility] Narrative* Problem [...] of this encounter (statuses as of 01/01/2022) [facility] Narrative* Problem [...] of this encounter (statuses as of 01/02/2022) [facility] N[facility]ative* Problem [...] of this encounter (statuses as of 01/02/2022) [facility] N[facility]ative* Problem [...] of this encounter (statuses as of 01/06/2022) [facility] N[facility]ative* Problem [...] of this encounter (statuses as of 01/10/2022) [facility] N[facility]ative* Problem [...] of this encounter (statuses as of 01/11/2022) [facility] Narrative* Problem [...] of this encounter (statuses as of 01/12/2022) [facility]* Problem [...] of this encounter (statuses as of 01/12/2022) [facility] N[facility]ative* Problem [...] of this encounter (statuses as of 01/19/2022) [facility] N[facility]ative* Problem [...] of this encounter (statuses as of 01/23/2022) [facility]* Problem [...] of this encounter (statuses as of 01/25/2022) [facility]ative* Problem [...] of this encounter (statuses as of 01/30/2022) [facility]* Problem [...] of this encounter (statuses as of 02/01/2022) [facility] Narrative* Problem [...] of this encounter (statuses as of 02/02/2022) [facility]* Problem [...] of this encounter (statuses as of 02/02/2022) [facility]* Problem [...] of this encounter (statuses as of 02/06/2022) [facility]* Problem [...] of this encounter (statuses as of 02/09/2022) [facility]* Problem [...] of this encounter (statuses as of 02/14/2022) [facility]* Problem [...] of this encounter (statuses as of 02/26/2022) [facility]* Problem [...] of this encounter (statuses as of 03/02/2022) [facility]* Problem [...] of this encounter (statuses as of 03/05/2022) [facility]* Problem [...] of this encounter (statuses as of 03/07/2022) [facility]* Problem [...] of this encounter (statuses as of 03/08/2022) [facility]* Problem [...] of this encounter (statuses as of 03/09/2022) [facility]* Problem [...] of this encounter (statuses as of 03/12/2022) [facility]* Problem [...] of this encounter (statuses as of 03/16/2022) [facility]* Problem [...] of this encounter (statuses as of 03/23/2022) [facility]* Problem [...] of this encounter (statuses as of 04/03/2022) [facility]* Problem [...] of this encounter (statuses as of 04/04/2022) [facility]* Problem [...] of this encounter (statuses as of 04/06/2022) [facility]* Problem [...] of this encounter (statuses as of 04/17/2022) [facility]* Problem [...] of this encounter (statuses as of 04/17/2022) [facility]* Problem [...] of this encounter (statuses as of 04/19/2022) [facility]* Problem [...] of this encounter (statuses as of 05/16/2022) [facility]* Problem [...] of this encounter (statuses as of 06/25/2022) [facility]* Problem [...] of this encounter (statuses as of 07/14/2022) [facility]* Problem [...] of this encounter (statuses as of 07/15/2022) [facility]* Problem [...] of this encounter (statuses as of 07/18/2022) [facility]* Problem [...] of this encounter (statuses as of 07/18/2022) [facility]* Problem [...] of this encounter (statuses as of 07/19/2022) [facility]* Problem [...] of this encounter (statuses as of 07/20/2022) [facility]* Problem [...] of this encounter (statuses as of 07/25/2022) [facility]* Problem [...] of this encounter (statuses as of 07/26/2022) [facility]* Problem [...] of this encounter (statuses as of 07/27/2022) [facility]* Problem [...] of this encounter (statuses as of 07/31/2022) [facility]* Problem [...] of this encounter (statuses as of 08/06/2022) [facility]* Problem [...] of this encounter (statuses as of 08/07/2022) [address] History of Past illness Narrative* Problem [...] of this encounter (statuses as of 08/09/2022) [address] History of Past illness Narrative* Problem [...] of this encounter (statuses as of 08/14/2022) [facility]* Problem [...] of this encounter (statuses as of 08/16/2022) [facility]* Problem [...] of this encounter (statuses as of 08/28/2022) [facility]* Problem [...] of this encounter (statuses as of 09/07/2022) [facility]* Problem [...] of this encounter (statuses as of 09/09/2022) [facility]* Problem [...] of this encounter (statuses as of 09/25/2022) [facility]* Problem [...] of this encounter (statuses as of 10/23/2022) [facility]* Problem [...] of this encounter (statuses as of 11/20/2022) [facility]* Problem [...] of this encounter (statuses as of 11/20/2022) [facility]* Problem [...] of this encounter (statuses as of 12/13/2022) [facility]* Problem [...] of this encounter (statuses as of 12/14/2022) [facility]* Problem [...] of this encounter (statuses as of 12/18/2022) [facility]* Problem [...] of this encounter (statuses as of 12/25/2022) [facility] Problem [...] of this encounter (statuses as of 12/27/2022) [facility]* Problem [...] of this encounter (statuses as of 12/31/2022) [facility]* Problem [...] of this encounter (statuses as of 01/03/2023) [facility] Problem [...] of this encounter (statuses as of 01/04/2023) [facility]* Problem [...] of this encounter (statuses as of 01/04/2023) [facility]* Problem [...] of this encounter (statuses as of 01/25/2023) [facility]* Problem [...] of this encounter (statuses as of 01/29/2023) [facility] note* Diagnosis Type 2 diabetes mellitus with diabetic neuropathy, with long-term current use of insulin (HCC) Status post aortic valve repair Other postprocedural status Chronic anticoagulation Long-term (current) use of anticoagulants [facility] Diagnosis Colon cancer [...] Diagnosis COVID-19- Primary [facility]* Diagnosis Hyperlipidemia with target LDL less than 100- Primary Other and unspecified hyperlipidemia Primary hypertension Unspecified essential hypertension Thoracic aortic aneurysm without rupture (HCC) Thoracic aneurysm without mention of rupture Coronary artery disease involving [place] coronary artery of [place] heart without angina pectoris Syncope, unspecified syncope type Obesity, Class II, BMI 35-39.9 Obesity, unspecified [facility]* Diagnosis Syncope and collapse- Primary Altered mental status, unspecified altered mental status type Urinary incontinence, unspecified type Benign prostatic hyperplasia with nocturia Nocturia Vitamin D deficiency, unspecified Wound of left lower extremity, initial encounter Encounter for screening for malignant neoplasm of prostate Special screening for malignant neoplasm of prostate [facility]* Diagnosis Abnormality of gait due to impairment of balance- Primary Altered mental status, unspecified altered mental status type [facility]* Diagnosis Chronic anticoagulation Long-term (current) use of anticoagulants Thoracic aortic aneurysm without rupture (HCC) Thoracic aneurysm without mention of rupture Status post aortic valve repair Other postprocedural status [facility]* Diagnosis Type 2 diabetes mellitus with diabetic neuropathy, with long-term current use of insulin (HCC)- Primary [facility]* Diagnosis Abnormality of gait due [...] vitamin D deficiency [facility]* Diagnosis Type 2 diabetes mellitus with stage 3 chronic kidney disease, with long-term current use of insulin (HCC) [facility] Diagnosis Abnormality of gait due to impairment of balance- Primary [facility]* Diagnosis Type 2 diabetes mellitus with diabetic neuropathy, with long-term current use of insulin ([facility]) [facility] Diagnosis Abnormality of gait due [...] profile ANTHONY (acute kidney injury) ([facility]) Acute kidney failure, unspecified [facility] Diagnosis Abnormality of gait due [...] with type 2 diabetes mellitus ([facility]) [facility]* Diagnosis Generalized weakness- Primary Other malaise and fatigue Encounter for immunization Need for other specified prophylactic vaccination against single bacterial disease Mild depression Depressive disorder, not elsewhere classified [facility]* Diagnosis Generalized anxiety disorder- Primary [...] NSTEMI (non-ST elevated myocardial infarction) ([facility]) Acute myocardial infarction, subendocardial infarction, episode [...] long-term current use of insulin ([facility]) 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, macular edema presence unspecified ([facility]) [facility]* Diagnosis Driving safety issue- Primary Other specified personal history presenting hazards to health [facility]* Diagnosis Onychomycosis- Primary Dermatophytosis of nail Pain in toe of left foot Pain in limb Amputated toe of right foot ([facility]) Diabetic polyneuropathy associated with type 2 diabetes mellitus ([facility]) [facility]* Diagnosis Spinal stenosis, lumbar region, without neurogenic claudication- Primary Primary osteoarthritis of both knees Primary localized osteoarthrosis, lower leg [facility]* Diagnosis Spinal stenosis, lumbar region, without neurogenic claudication- Primary Primary osteoarthritis of both knees Primary localized osteoarthrosis, lower leg [facility] Diagnosis Spinal stenosis, lumbar region, without neurogenic claudication- Primary Primary osteoarthritis of both knees Primary localized osteoarthrosis, lower leg [facility]* Diagnosis Spinal stenosis, lumbar region, without neurogenic claudication- Primary Primary osteoarthritis of both knees Primary localized osteoarthrosis, lower leg [facility]* Diagnosis Spinal stenosis, lumbar region, without neurogenic claudication- Primary Primary osteoarthritis of both knees Primary localized osteoarthrosis, lower leg [facility]* Diagnosis Spinal stenosis, lumbar region, without neurogenic claudication- Primary Primary osteoarthritis of both knees Primary localized osteoarthrosis, lower leg [facility] Narrative No data available for this section [facility] Discharge instructions No data available for this section [facility] Progress note No data available for this section [facility] Reason for referral (narrative)* Outpatient Procedure (Routine) - Closed Specialty Diagnoses / Procedures Referred By Contac t Referred To Contact [facility] Diagnoses Colon cancer screening Procedures COLONOSCOPY SCREENING COLONOSCOPY FLX DX W/COLLJ SPEC WHEN PFMarcella Cho PA-C [address] [place] [address] [facility] [place] [address] [id number] Referral ID Status Reason Start Date Expiration Date V isits Requested Visits Authorized [id number] Closed Auto-Generate d Referral 08/16/2021 08/16/2022 1 1 [facility] for referral (narrative)* Outpatient Procedure (Routine) - Closed Specialty Diagnoses / Procedures Referred By Contac t Referred To Contact [facility] Diagnoses Colon cancer screening Procedures COLONOSCOPY SCREENING COLONOSCOPY FLX DX W/COLLJ SPEC WHEN Marcella Alatorre PA-C [address] [place] [address] [facility] [place] [address] [place] [id number] Referral ID Status Reason Start Date Expiration Date V isits Requested Visits Authorized [id number] Closed Auto-Generate d Referral 08/16/2021 08/16/2022 1 1 [facility] for visit Narrative* Outpatient Procedure (Routine) - Closed Specialty Diagnoses / Procedures Referred By Contac t Referred To Contact [facility] Diagnoses Colon cancer screening Procedures COLONOSCOPY SCREENING COLONOSCOPY FLX DX W/COLLJ SPEC WHEN PFMarcella Cho PA-C [address] [place] [address] [facility] [place] [address] [place] [id number] Referral ID Status Reason Start Date Expiration Date V isits Requested Visits Authorized [id number] Closed Auto-Generate d Referral 08/16/2021 08/16/2022 1 1 [facility] Procedure (Routine) - Closed Specialty Diagnoses / Procedures Referred By Linn carrillo Referred To Contact [facility] Diagnoses Chronic anticoagulation Thoracic aortic aneurysm without rupture (HCC) Status post aortic valve repair Procedures ECHO TTE W/DOPPLER, COMPLETE Justina Hadley, PAPER STRIPPER.LOSS PREVENTION LEAD [address] [place] [address] [facility] [address] [address] Referral ID Status Reason Start Date Expiration Date V isits Requested Visits Authorized [id number] Closed Auto-Generate d Referral 07/03/2021 07/03/2022 1 1 [facility] Advance Directives No Advanced Directives Records FoundDocuments on File Type Date Recorded Patient Loader Demolder Expl anation Advance Directive(s) 09/12/2021 7:14 AM Documents on File Type Date Recorded Patient Loader Demolder Expl anation Advance Directive(s) 09/12/2021 7:14 AM [...] Diagnoses Driving safety issue Procedures CONSULT TO VETERINARY RADIOLOGIST OCCUPATIONAL THERAPY EVAL HIGH COMPLEX 60 MINS Tamie Kaur MD [address] [place] [address] [facility] [place] [address] [place] [id number] Referral ID Status Reason Start Date Expiration Date Visits Requested Visits Authorized [id number] Authorized PCP Requested Referral Auto-Generate d Referral 09/07/2022 09/07/2023 99 99 Specialty Diagnoses / Procedures Referred By Contac t Referred To Contact [facility] Diagnoses Polyneuropathy Procedures CONSULT TO PHYSICAL THERAPY PHYSICAL THERAPY EVALUATION HIGH COMPLEX 45 MINS Tamie Kaur MD [address] [place] [address] [facility] [address] [address] Referral ID Status Reason Start Date Expiration Date Visits Requested Visits Authorized [id number] Authorized PCP Requested Referral Auto-Generate d Referral 04/17/2022 04/17/2023 99 99 Specialty Diagnoses / Procedures Referred By Contac t Referred To Contact Psychology Diagnoses Generalized anxiety disorder Procedures CONSULT TO PSYCHOLOGY OFFICE/OUTPATIENT [facility] 60-74 MINUTES Tamie Kaur MD [address] [place] [id number] Referral ID Status Reason Start Date Expiration Date Visits Requested Visits Authorized [id number] Pending Review PCP Requested Referral 04/17/2022 04/17/2023 1 1 Specialty Diagnoses / Procedures Referred By Contac t Referred To Contact Podiatry Diagnoses Type 2 diabetes mellitus with diabetic neuropathy, with long-term current use of insulin (HCC) Procedures CONSULT TO PODIATRY OFFICE/OUTPATIENT [facility] 60-74 MINUTES PodlogRoselia hernandez APRN.LOSS PREVENTION LEAD [address] [place] [address] Referral ID Status Reason Start Date Expiration Date Visits Requested Visits Authorized [id number] Authorized PCP Requested Referral 01/12/2022 01/11/2023 1 1 Specialty Diagnoses / Procedures Referred By Contac t Referred To Contact [facility] Diagnoses Altered mental status, unspecified altered mental status type Procedures CONSULT TO SPEECH THERAPY OFFICE/OUTPATIENT [facility] 60-74 MINUTES Tamie Kaur MD [address] [place] [address] [facility] [address] [address] Referral ID Status Reason Start Date Expiration Date Visits Requested Visits Authorized [id number] Authorized Auto-Generat ed Referral 01/05/2022 01/05/2023 99 99 Specialty Diagnoses / Procedures Referred By Contac t Referred To Contact [facility] Diagnoses Abnormality of gait due to impairment of balance Procedures CONSULT TO PHYSICAL THERAPY PHYSICAL THERAPY EVALUATION HIGH COMPLEX 45 MINS Tamie Kaur MD [address] [place] [address] [facility] [place] [address] Referral ID Status Reason Start Date Expiration Date Visits Requested Visits Authorized [id number] Authorized PCP Requested Referral Auto-Generate d Referral 01/05/2022 01/05/2023 99 99 Specialty Diagnoses / Procedures Referred By Contac t Referred To Contact [facility] Diagnoses Altered mental status, unspecified altered mental status type Procedures EPIL EEG ROUTINE ELECTROENCEPHALOGRAM REC COMA/SLEEP ONLY Tamie Kaur MD [address] [place] [address] [place] [address] Referral ID Status Reason Start Date Expiration Date Visits Requested Visits Authorized [id number] Authorized Auto-Generat ed Referral 01/05/2022 01/05/2023 1 1 Specialty Diagnoses / Procedures Referred By Contac t Referred To Contact Neurology Diagnoses Altered mental status, unspecified altered mental status type Procedures CONSULT TO NEUROLOGY OFFICE/OUTPATIENT [facility] MDM 60-74 MINUTES Abdulaziz Caldera MD [address] [place] [address] Referral ID Status Reason Start Date Expiration Date Visits Requested Visits Authorized [id number] Authorized PCP Requested Referral 01/01/2022 01/01/2023 1 [...] or prosecute any alcohol or drug abuse patient.[facility] the event this information is protected by the Federal Confidentiality of Alcohol and Drug Abuse Patient Records regulations: The Federal rules restrict any use of the information to criminally investigate or prosecute any alcohol or drug abuse patient.[facility] the event this information is protected by the Federal Confidentiality of Alcohol and Drug Abuse Patient Records regulations: The Federal rules restrict any use of the information to criminally investigate or prosecute any alcohol or drug abuse patient.[facility]In the event this information is protected by the Federal Confidentiality of Alcohol and Drug Abuse Patient Records regulations: The Federal rules restrict any use of the information to criminally investigate or prosecute any alcohol or drug abuse patient.[facility]In the event this information is protected by the Federal Confidentiality of Alcohol and Drug Abuse Patient Records regulations: The Federal rules restrict any use of the information to criminally investigate or prosecute any alcohol or drug abuse patient.[facility] the event this information is protected by the Federal Confidentiality of Alcohol and Drug Abuse Patient Records regulations: The Federal rules restrict any use of the information to criminally investigate or prosecute any alcohol or drug abuse patient.[facility]In the event this information is protected by the Federal Confidentiality of Alcohol and Drug Abuse Patient Records regulations: The Federal rules restrict any use of the information to criminally investigate or prosecute any alcohol or drug abuse patient.[facility]In the event this information is protected by the Federal Confidentiality of Alcohol and Drug Abuse Patient Records regulations: The Federal rules restrict any use of the information to criminally investigate or prosecute any alcohol or drug abuse patient.[facility]In the event this information is protected by the Federal Confidentiality of Alcohol and Drug Abuse Patient Records regulations: The Federal rules restrict any use of the information to criminally investigate or prosecute any alcohol or drug abuse patient.[facility] HospitalIn the event this information is protected by the Federal Confidentiality of Alcohol and Drug Abuse Patient Records regulations: The Federal rules restrict any use of the information to criminally investigate or prosecute any alcohol or drug abuse patient.[facility] HospitalIn the event this information is protected by the Federal Confidentiality of Alcohol and Drug Abuse Patient Records regulations: The Federal rules restrict any use of the information to criminally investigate or prosecute any alcohol or drug abuse patient.[facility] HospitalIn the event this information is protected by the Federal Confidentiality of Alcohol and Drug Abuse Patient Records regulations: The Federal rules restrict any use of the information to criminally investigate or prosecute any alcohol or drug abuse patient.[facility] HospitalIn the event this information is protected by the Federal Confidentiality of Alcohol and Drug Abuse Patient Records regulations: The Federal rules restrict any use of the information to criminally investigate or prosecute any alcohol or drug abuse patient.[facility] HospitalIn the event this information is protected by the Federal Confidentiality of Alcohol and Drug Abuse Patient Records regulations: The Federal rules restrict any use of the information to criminally investigate or prosecute any alcohol or drug abuse patient.[facility] HospitalIn the event this information is protected by the Federal Confidentiality of Alcohol and Drug Abuse Patient Records regulations: The Federal rules restrict any use of the information to criminally investigate or prosecute any alcohol or drug abuse patient.[facility] HospitalIn the event this information is protected by the Federal Confidentiality of Alcohol and Drug Abuse Patient Records regulations: The Federal rules restrict any use of the information to criminally investigate or prosecute any alcohol or drug abuse patient.[facility] HospitalIn the event this information is protected by the Federal Confidentiality of Alcohol and Drug Abuse Patient Records regulations: The Federal rules restrict any use of the information to criminally investigate or prosecute any alcohol or drug abuse patient.[facility] HospitalIn the event this information is protected by the Federal Confidentiality of Alcohol and Drug Abuse Patient Records regulations: The Federal rules restrict any use of the information to criminally investigate or prosecute any alcohol or drug abuse patient.[facility] HospitalIn the event this information is protected by the Federal Confidentiality of Alcohol and Drug Abuse Patient Records regulations: The Federal rules restrict any use of the information to criminally investigate or prosecute any alcohol or drug abuse patient.[facility] HospitalIn the event this information is protected by the Federal Confidentiality of Alcohol and Drug Abuse Patient Records regulations: The Federal rules restrict any use of the information to criminally investigate or prosecute any alcohol or drug abuse patient.[facility] HospitalIn the event this information is protected by the Federal Confidentiality of Alcohol and Drug Abuse Patient Records regulations: The Federal rules restrict any use of the information to criminally investigate or prosecute any alcohol or drug abuse patient.[facility] HospitalIn the event this information is protected by the Federal Confidentiality of Alcohol and Drug Abuse Patient Records regulations: The Federal rules restrict any use of the information to criminally investigate or prosecute any alcohol or drug abuse patient.[facility] HospitalIn the event this information is protected by the Federal Confidentiality of Alcohol and Drug Abuse Patient Records regulations: The Federal rules restrict any use of the information to criminally investigate or prosecute any alcohol or drug abuse patient.[facility] HospitalIn the event this information is protected by the Federal Confidentiality of Alcohol and Drug Abuse Patient Records regulations: The Federal rules restrict any use of the information to criminally investigate or prosecute any alcohol or drug abuse patient.[facility] HospitalIn the event this information is protected by the Federal Confidentiality of Alcohol and Drug Abuse Patient Records regulations: The Federal rules restrict any use of the information to criminally investigate or prosecute any alcohol or drug abuse patient.[facility] HospitalIn the event this information is protected by the Federal Confidentiality of Alcohol and Drug Abuse Patient Records regulations: The Federal rules restrict any use of the information to criminally investigate or prosecute any alcohol or drug abuse patient.[facility] HospitalIn the event this information is protected by the Federal Confidentiality of Alcohol and Drug Abuse Patient Records regulations: The Federal rules restrict any use of the information to criminally investigate or prosecute any alcohol or drug abuse patient.[facility] HospitalIn the event this information is protected by the Federal Confidentiality of Alcohol and Drug Abuse Patient Records regulations: The Federal rules restrict any use of the information to criminally investigate or prosecute any alcohol or drug abuse patient.[facility] HospitalIn the event this information is protected by the Federal Confidentiality of Alcohol and Drug Abuse Patient Records regulations: The Federal rules restrict any use of the information to criminally investigate or prosecute any alcohol or drug abuse patient.[facility] HospitalIn the event this information is protected by the Federal Confidentiality of Alcohol and Drug Abuse Patient Records regulations: The Federal rules restrict any use of the information to criminally investigate or prosecute any alcohol or drug abuse patient.[facility] HospitalIn the event this information is protected by the Federal Confidentiality of Alcohol and Drug Abuse Patient Records regulations: The Federal rules restrict any use of the information to criminally investigate or prosecute any alcohol or drug abuse patient.[facility] HospitalIn the event this information is protected by the Federal Confidentiality of Alcohol and Drug Abuse Patient Records regulations: The Federal rules restrict any use of the information to criminally investigate or prosecute any alcohol or drug abuse patient.[facility] HospitalIn the event this information is protected by the Federal Confidentiality of Alcohol and Drug Abuse Patient Records regulations: The Federal rules restrict any use of the information to criminally investigate or prosecute any alcohol or drug abuse patient.[facility] HospitalIn the event this information is protected by the Federal Confidentiality of Alcohol and Drug Abuse Patient Records regulations: The Federal rules restrict any use of the information to criminally investigate or prosecute any alcohol or drug abuse patient.[facility] HospitalIn the event this information is protected by the Federal Confidentiality of Alcohol and Drug Abuse Patient Records regulations: The Federal rules restrict any use of the information to criminally investigate or prosecute any alcohol or drug abuse patient.[facility] HospitalIn the event this information is protected by the Federal Confidentiality of Alcohol and Drug Abuse Patient Records regulations: The Federal rules restrict any use of the information to criminally investigate or prosecute any alcohol or drug abuse patient.[facility] HospitalIn the event this information is protected by the Federal Confidentiality of Alcohol and Drug Abuse Patient Records regulations: The Federal rules restrict any use of the information to criminally investigate or prosecute any alcohol or drug abuse patient.[facility] HospitalIn the event this information is protected by the Federal Confidentiality of Alcohol and Drug Abuse Patient Records regulations: The Federal rules restrict any use of the information to criminally investigate or prosecute any alcohol or drug abuse patient.[facility] HospitalIn the event this information is protected by the Federal Confidentiality of Alcohol and Drug Abuse Patient Records regulations: The Federal rules restrict any use of the information to criminally investigate or prosecute any alcohol or drug abuse patient.[facility] HospitalIn the event this information is protected by the Federal Confidentiality of Alcohol and Drug Abuse Patient Records regulations: The Federal rules restrict any use of the information to criminally investigate or prosecute any alcohol or drug abuse patient.[facility] HospitalIn the event this information is protected by the Federal Confidentiality of Alcohol and Drug Abuse Patient Records regulations: The Federal rules restrict any use of the information to criminally investigate or prosecute any alcohol or drug abuse patient.[facility] HospitalIn the event this information is protected by the Federal Confidentiality of Alcohol and Drug Abuse Patient Records regulations: The Federal rules restrict any use of the information to criminally investigate or prosecute any alcohol or drug abuse patient.[facility] HospitalIn the event this information is protected by the Federal Confidentiality of Alcohol and Drug Abuse Patient Records regulations: The Federal rules restrict any use of the information to criminally investigate or prosecute any alcohol or drug abuse patient.[facility] HospitalIn the event this information is protected by the Federal Confidentiality of Alcohol and Drug Abuse Patient Records regulations: The Federal rules restrict any use of the information to criminally investigate or prosecute any alcohol or drug abuse patient.[facility] HospitalIn the event this information is protected by the Federal Confidentiality of Alcohol and Drug Abuse Patient Records regulations: The Federal rules restrict any use of the information to criminally investigate or prosecute any alcohol or drug abuse patient.[facility] HospitalIn the event this information is protected by the Federal Confidentiality of Alcohol and Drug Abuse Patient Records regulations: The Federal rules restrict any use of the information to criminally investigate or prosecute any alcohol or drug abuse patient.[facility] HospitalIn the event this information is protected by the Federal Confidentiality of Alcohol and Drug Abuse Patient Records regulations: The Federal rules restrict any use of the information to criminally investigate or prosecute any alcohol or drug abuse patient.[facility] HospitalIn the event this information is protected by the Federal Confidentiality of Alcohol and Drug Abuse Patient Records regulations: The Federal rules restrict any use of the information to criminally investigate or prosecute any alcohol or drug abuse patient.[facility] HospitalIn the event this information is protected by the Federal Confidentiality of Alcohol and Drug Abuse Patient Records regulations: The Federal rules restrict any use of the information to criminally investigate or prosecute any alcohol or drug abuse patient.[facility] HospitalIn the event this information is protected by the Federal Confidentiality of Alcohol and Drug Abuse Patient Records regulations: The Federal rules restrict any use of the information to criminally investigate or prosecute any alcohol or drug abuse patient.[facility] HospitalIn the event this information is protected by the Federal Confidentiality of Alcohol and Drug Abuse Patient Records regulations: The Federal rules restrict any use of the information to criminally investigate or prosecute any alcohol or drug abuse patient.[facility] HospitalIn the event this information is protected by the Federal Confidentiality of Alcohol and Drug Abuse Patient Records regulations: The Federal rules restrict any use of the information to criminally investigate or prosecute any alcohol or drug abuse patient.[facility] HospitalIn the event this information is protected by the Federal Confidentiality of Alcohol and Drug Abuse Patient Records regulations: The Federal rules restrict any use of the information to criminally investigate or prosecute any alcohol or drug abuse patient.[facility] HospitalIn the event this information is protected by the Federal Confidentiality of Alcohol and Drug Abuse Patient Records regulations: The Federal rules restrict any use of the information to criminally investigate or prosecute any alcohol or drug abuse patient.[facility] HospitalIn the event this information is protected by the Federal Confidentiality of Alcohol and Drug Abuse Patient Records regulations: The Federal rules restrict any use of the information to criminally investigate or prosecute any alcohol or drug abuse patient.[facility] HospitalIn the event this information is protected by the Federal Confidentiality of Alcohol and Drug Abuse Patient Records regulations: The Federal rules restrict any use of the information to criminally investigate or prosecute any alcohol or drug abuse patient.[facility] HospitalIn the event this information is protected by the Federal Confidentiality of Alcohol and Drug Abuse Patient Records regulations: The Federal rules restrict any use of the information to criminally investigate or prosecute any alcohol or drug abuse patient.[facility] HospitalIn the event this information is protected by the Federal Confidentiality of Alcohol and Drug Abuse Patient Records regulations: The Federal rules restrict any use of the information to criminally investigate or prosecute any alcohol or drug abuse patient.[facility] HospitalIn the event this information is protected by the Federal Confidentiality of Alcohol and Drug Abuse Patient Records regulations: The Federal rules restrict any use of the information to criminally investigate or prosecute any alcohol or drug abuse patient.[facility] HospitalIn the event this information is protected by the Federal Confidentiality of Alcohol and Drug Abuse Patient Records regulations: The Federal rules restrict any use of the information to criminally investigate or prosecute any alcohol or drug abuse patient.[facility] HospitalIn the event this information is protected by the Federal Confidentiality of Alcohol and Drug Abuse Patient Records regulations: The Federal rules restrict any use of the information to criminally investigate or prosecute any alcohol or drug abuse patient.[facility] HospitalIn the event this information is protected by the Federal Confidentiality of Alcohol and Drug Abuse Patient Records regulations: The Federal rules restrict any use of the information to criminally investigate or prosecute any alcohol or drug abuse patient.[facility] HospitalIn the event this information is protected by the Federal Confidentiality of Alcohol and Drug Abuse Patient Records regulations: The Federal rules restrict any use of the information to criminally investigate or prosecute any alcohol or drug abuse patient.[facility] HospitalIn the event this information is protected by the Federal Confidentiality of Alcohol and Drug Abuse Patient Records regulations: The Federal rules restrict any use of the information to criminally investigate or prosecute any alcohol or drug abuse patient.[facility] HospitalIn the event this information is protected by the Federal Confidentiality of Alcohol and Drug Abuse Patient Records regulations: The Federal rules restrict any use of the information to criminally investigate or prosecute any alcohol or drug abuse patient.[facility] HospitalIn the event this information is protected by the Federal Confidentiality of Alcohol and Drug Abuse Patient Records regulations: The Federal rules restrict any use of the information to criminally investigate or prosecute any alcohol or drug abuse patient.[facility] HospitalIn the event this information is protected by the Federal Confidentiality of Alcohol and Drug Abuse Patient Records regulations: The Federal rules restrict any use of the information to criminally investigate or prosecute any alcohol or drug abuse patient.[facility] HospitalIn the event this information is protected by the Federal Confidentiality of Alcohol and Drug Abuse Patient Records regulations: The Federal rules restrict any use of the information to criminally investigate or prosecute any alcohol or drug abuse patient.[facility] HospitalIn the event this information is protected by the Federal Confidentiality of Alcohol and Drug Abuse Patient Records regulations: The Federal rules restrict any use of the information to criminally investigate or prosecute any alcohol or drug abuse patient.[facility] HospitalIn the event this information is protected by the Federal Confidentiality of Alcohol and Drug Abuse Patient Records regulations: The Federal rules restrict any use of the information to criminally investigate or prosecute any alcohol or drug abuse patient.[facility] HospitalIn the event this information is protected by the Federal Confidentiality of Alcohol and Drug Abuse Patient Records regulations: The Federal rules restrict any use of the information to criminally investigate or prosecute any alcohol or drug abuse patient.[facility] HospitalIn the event this information is protected by the Federal Confidentiality of Alcohol and Drug Abuse Patient Records regulations: The Federal rules restrict any use of the information to criminally investigate or prosecute any alcohol or drug abuse patient.[facility] HospitalIn the event this information is protected by the Federal Confidentiality of Alcohol and Drug Abuse Patient Records regulations: The Federal rules restrict any use of the information to criminally investigate or prosecute any alcohol or drug abuse patient.[facility] HospitalIn the event this information is protected by the Federal Confidentiality of Alcohol and Drug Abuse Patient Records regulations: The Federal rules restrict any use of the information to criminally investigate or prosecute any alcohol or drug abuse patient.[facility] HospitalIn the event this information is protected by the Federal Confidentiality of Alcohol and Drug Abuse Patient Records regulations: The Federal rules restrict any use of the information to criminally investigate or prosecute any alcohol or drug abuse patient.[facility] HospitalIn the event this information is protected by the Federal Confidentiality of Alcohol and Drug Abuse Patient Records regulations: The Federal rules restrict any use of the information to criminally investigate or prosecute any alcohol or drug abuse patient.[facility] HospitalIn the event this information is protected by the Federal Confidentiality of Alcohol and Drug Abuse Patient Records regulations: The Federal rules restrict any use of the information to criminally investigate or prosecute any alcohol or drug abuse patient.[facility] HospitalIn the event this information is protected by the Federal Confidentiality of Alcohol and Drug Abuse Patient Records regulations: The Federal rules restrict any use of the information to criminally investigate or prosecute any alcohol or drug abuse patient.[facility] HospitalIn the event this information is protected by the Federal Confidentiality of Alcohol and Drug Abuse Patient Records regulations: The Federal rules restrict any use of the information to criminally investigate or prosecute any alcohol or drug abuse patient.[facility] Reason for Visit (unrecogniz ed section and content) Specialty Diagnoses / Procedures Referred By Linn carrillo Referred To Contact [facility] Diagnoses Abnormality of gait due to impairment of balance Procedures CONSULT TO PHYSICAL THERAPY PHYSICAL THERAPY EVALUATION HIGH COMPLEX 45 MINS Tamie Kaur MD [address] [place] [address] [facility] [address] [address] Referral ID Status Reason Start Date Expiration Date Visits Requested Visits Authorized [id number] Authorized PCP Requested Referral Auto-Generate d Referral [...] 6 mo Reason Comments Hospital Follow Up [facility] discharged Reason Comments Results Reason Comments Consult altered mental statu s Specialty Diagnoses / Procedures Referred By Linn carrillo Referred To Contact Neurology Diagnoses Altered mental status, unspecified altered mental status type Procedures CONSULT TO NEUROLOGY OFFICE/OUTPATIENT [facility] MDM 60-74 MINUTES Abdulaziz Caldera MD [address] [place] [address] Referral ID Status Reason Start Date Expiration Date V isits Requested Visits Authorized [id number] Closed PCP Requested Referral 01/01/2022 01/01/2023 1 [...] Nursing Plan of Care Update Reason Comments [facility] PT POC Reason Comments OT plan of care Reason Onset Date Comments Refill Request 07/25/2022 Reason Comments Home Health-Nursing Update Reason Onset Date Comments Anticoagulation 07/31/2022 Specialty Diagnoses / Procedures Referred By Linn carrillo Referred To Contact Ent - Otolaryngology Diagnoses Chronic frontal sinusitis Procedures CONSULT TO ENT OFFICE/OUTPATIENT NEW HIGH MDM 60-74 MINUTES Abdulaziz Caldera MD [address] [place] [address] Referral ID Status Reason Start Date Expiration Date V isits Requested Visits Authorized [id number] Closed PCP Requested Referral 07/12/2022 07/12/2023 1 [...] Care Teams (unrecognized sec tion and content) Assistant Front End Manager Relationship Specialty Start Date End Date Abdulaziz Caldera MD [address] [place] [address] PCP - General Family Practice 11/23/20 Assistant Front End Manager Relationship Specialty Start Date End Date Abdulaziz Caldera MD [address] [facility] [place] [address] PCP - General Family Practice 11/23/20 Assistant Front End Manager Relationship Specialty Start Date End Date Abdulaziz Caldera MD [address] [facility] [place] [address] PCP - General Family Practice 11/23/20 Assistant Front End Manager Relationship Specialty Start Date End Date Abdulaziz Caldera MD [address] [facility] [place] [address] PCP - General Family Practice 11/23/20 Assistant Front End Manager Relationship Specialty Start Date End Date Abdulaziz Caldera MD [facility] [place] [address] PCP - General Family Practice 11/23/20 Assistant Front End Manager Relationship Specialty Start Date End Date Abdulaziz Caldera MD [address] [facility] [place] [address] PCP - General Family Practice 11/23/20 Assistant Front End Manager Relationship Specialty Start Date End Date Abdulaziz Caldera MD [address] [facility] [place] [address] PCP - General Family Practice 11/23/20 Assistant Front End Manager Relationship Specialty Start Date End Date Abdulaziz Caldera MD [address] [facility] [place] [address] PCP - General Family Practice 11/23/20 Assistant Front End Manager Relationship Specialty Start Date End Date Abdulaziz Caldera MD [address] [facility] [place] [address] PCP - General Family Practice 11/23/20 Assistant Front End Manager Relationship Specialty Start Date End Date Abdulaziz Caldera MD [address] [facility] [place] [address] PCP - General Family Practice 11/23/20 Assistant Front End Manager Relationship Specialty Start Date End Date Abdulaziz Caldera MD [address] [facility] [place] [address] PCP - General Family Practice 11/23/20 Assistant Front End Manager Relationship Specialty Start Date End Date Abdulaziz Caldera MD [address] [facility] [place] [address] PCP - General Family Practice 11/23/20 Assistant Front End Manager Relationship Specialty Start Date End Date Abdulaziz Caldera MD [address] [facility] [place] [address] PCP - General Family Practice 11/23/20 Assistant Front End Manager Relationship Specialty Start Date End Date Abdulaziz Caldera MD [address] [facility] [place] [address] PCP - General Family Practice 11/23/20 Assistant Front End Manager Relationship Specialty Start Date End Date Abdulaziz Caldera MD [address] [facility] [place] [address] PCP - General Family Practice 11/23/20 Assistant Front End Manager Relationship Specialty Start Date End Date Abdulaziz Caldera MD [address] [facility] [place] [address] PCP - General Family Practice 11/23/20 Assistant Front End Manager Relationship Specialty Start Date End Date Abdulaziz Caldera MD [address] [facility] [place] [address] PCP - General Family Practice 11/23/20 Assistant Front End Manager Relationship Specialty Start Date End Date Abdulaziz Caldera MD [address] [facility] [place] [address] PCP - General Family Practice 11/23/20 Assistant Front End Manager Relationship Specialty Start Date End Date Abdulaziz Caldera MD [address] [facility] [place] [address] PCP - General Family Practice 11/23/20 Assistant Front End Manager Relationship Specialty Start Date End Date Abdulaziz Caldera MD [address] [facility] [place] [address] PCP - General Family Practice 11/23/20 Assistant Front End Manager Relationship Specialty Start Date End Date Abdulaziz Caldera MD [address] [facility] [place] [address] PCP - General Family Practice 11/23/20 Assistant Front End Manager Relationship Specialty Start Date End Date Abdulaziz Caldera MD [address] [facility] [place] [address] PCP - General Family Medicine 11/23/20 Assistant Front End Manager Relationship Specialty Start Date End Date Abdulaziz Caldera MD [address] [facility] [place] [address] PCP - General Family Medicine 11/23/20 Assistant Front End Manager Relationship Specialty Start Date End Date Abdulaziz Caldera MD [address] [facility] [place] [address] PCP - General Family Medicine 11/23/20 Assistant Front End Manager Relationship Specialty Start Date End Date Abdulaziz Caldera MD [address] [facility] [place] [address] PCP - General Family Medicine 11/23/20 Assistant Front End Manager Relationship Specialty Start Date End Date Abdulaziz Caldera MD [address] [facility] [place] [address] PCP - General Family Medicine 11/23/20 Assistant Front End Manager Relationship Specialty Start Date End Date Abdulaziz Caldera MD [address] [facility] [place] [address] PCP - General Family Medicine 11/23/20 Assistant Front End Manager Relationship Specialty Start Date End Date Abdulaziz Caldera MD [address] [facility] [place] [address] PCP - General Family Medicine 11/23/20 Assistant Front End Manager Relationship Specialty Start Date End Date Abdulaziz Caldera MD [address] [facility] [place] [address] PCP - General Family Medicine 11/23/20 Assistant Front End Manager Relationship Specialty Start Date End Date Abdulaziz Caldera MD [address] [place] [address] PCP - General Family Medicine 11/23/20 Assistant Front End Manager Relationship Specialty Start Date End Date Abdulaziz Caldera MD [address] [facility] [place] [address] PCP - General Family Medicine 11/23/20 Assistant Front End Manager Relationship Specialty Start Date End Date Abdulaziz Caldera MD [address] [facility] [place] [address] PCP - General Family Medicine 11/23/20 Assistant Front End Manager Relationship Specialty Start Date End Date Abdulaziz Caldera MD [address] [place] [address] PCP - General Family Medicine 11/23/20 Assistant Front End Manager Relationship Specialty Start Date End Date Abdulaziz Caldera MD [address] [place] [address] PCP - General Family Medicine 11/23/20 Assistant Front End Manager Relationship Specialty Start Date End Date Abdulaziz Caldera MD [address] [place] [address] PCP - General Family Medicine 11/23/20 Assistant Front End Manager Relationship Specialty Start Date End Date Abdulaziz Caldera MD [address] [facility] [place] [address] PCP - General Family Medicine 11/23/20 Assistant Front End Manager Relationship Specialty Start Date End Date Abdulaziz Caldera MD [address] [facility] [place] [address] PCP - General Family Medicine 11/23/20 Assistant Front End Manager Relationship Specialty Start Date End Date Abdulaziz Caldera MD [address] [facility] [place] [address] PCP - General Family Medicine 11/23/20 Assistant Front End Manager Relationship Specialty Start Date End Date Abdulaziz Caldera MD [address] [facility] [place] [address] PCP - General Family Medicine 11/23/20 Assistant Front End Manager Relationship Specialty Start Date End Date Abdulaziz Caldera MD [address] [facility] [place] [address] PCP - General Family Medicine 11/23/20 Assistant Front End Manager Relationship Specialty Start Date End Date Abdulaziz Caldera MD [address] [facility] [place] [address] PCP - General Family Medicine 11/23/20 Assistant Front End Manager Relationship Specialty Start Date End Date Abdulaziz Caldera MD [address] [facility] [place] [address] PCP - General Family Medicine 11/23/20 (unrecognized sect ion and content) No Status Records FoundNo Status Records FoundNo Status Records FoundNo Status Records Found INFORMATION SOURCE (unrecogn ized section and content) DATE CREATED AUTHOR AUTHOR'S ORGANIZ ATION 02/04/2022 [facility] DATE CREATED AUTHOR AUTHOR'S ORGANIZ ATION 04/19/2022 [facility] ([place]) DATE CREATED AUTHOR AUTHOR'S DESTINY ATION 05/30/2023 [facility] FOR RECORDS PERTAINING TO PATIENTS WHO ARE [...] BE BASED ON THE PRIMARY CLINICAL RECORDS. [facility]. provides no warranty or guarantee of the accuracy or completeness of information in this document.
[2023-09-25 07:48] LABS: Hematocrit 39.4 % (40-54); Hemoglobin 12.6 g/dL (13.0-16.5); Mean Corpuscular Hgb 27.5 pg (27.0-32.0); Mean Corpuscular Volume 85.8 fL (80-94); Mean Platelet Vol. 9.9 fl (6.2-12.0); Platelet Count 235 K/mm3 (150-450); RBC Distribution Width CV 13.7 % (11.6-14.6); RBC Distribution Width SD 42.4 fl (35.1-43.9); Red Blood Count 4.59 M/mm3 (4.6-6.2); White Blood Count 10.6 K/mm3 (4.4-11.0)
[2023-09-25 08:03] LABS: ALB/GLOB Ratio 1.1 RATIO (0.9-2.4); AST(SGOT) 11 U/L (15-37); Alanine Aminotransfer ALT/SGPT 19 U/L (16-61); Albumin, Serum 3.2 g/dL (3.2-5.0); Alkaline Phosphatase 107 U/L (45-117); Anion Gap 6 (5-15); BUN 36 mg/dL (7-18); BUN/Creat Ratio 29.8 RATIO (10-20); Calcium,Total 9.6 mg/dL (8.5-10.1); Chloride 105 mmol/L (98-107); Creatinine, Serum 1.21 mg/dL (0.70-1.30); EST Glomerular Filtration Rate 62 mL/min (>60); Est Glom Filt Rate - Afr Amer 75 mL/min (>60); Glucose 125 mg/dL (74-106); International Normalized Ratio 2.8; Potassium 4.2 mmol/L (3.5-5.1); Protein, Total 6.2 g/dL (6.4-8.2); Prothrombin Time (Protime)PT. 28.9 SECONDS (11.7-14.9); Sodium Level 140 mmol/L (136-145)
== END ==
LOC: OLS.ACH 05:00
PROVIDERS: PCP Family Medicine; Visit Provider Internal Medicine
DX: I48.0 Paroxysmal atrial fibrillation (principal); E11.51 Type 2 diabetes mellitus with diabetic peripheral angiopathy without gangrene; E11.22 Type 2 diabetes mellitus with diabetic chronic kidney disease; N18.31 Chronic kidney disease, stage 3a; F03.A3 Unspecified dementia, mild, with mood disturbance
CPT/HCPCS: 36415; 80053; 85027; 85610

== ENCOUNTER → 2023-10-01 | Outpatient (REF) | payer MEDICARE, OTHER, SELFPAY ==
[2023-10-01 10:21] LABS: INR Fingerstick 1.9; Prothrombin Time Fingerstick 19.9 SEC (11.7-14.9)
== END ==
LOC: OLS.ACH 05:00
PROVIDERS: PCP Family Medicine; Visit Provider Internal Medicine
DX: Z79.01 Long term (current) use of anticoagulants (principal)
CPT/HCPCS: 36416; 85610

== ENCOUNTER → 2023-10-04 | Outpatient (REF) | payer MEDICARE, OTHER, SELFPAY ==
[2023-10-04 08:36] LABS: INR Fingerstick 2.2; Prothrombin Time Fingerstick 22.6 SEC (11.7-14.9)
== END ==
LOC: OLS.ACH 05:00
PROVIDERS: PCP Family Medicine; Visit Provider Internal Medicine
DX: Z79.01 Long term (current) use of anticoagulants (principal)
CPT/HCPCS: 36416; 85610

== ENCOUNTER → 2023-10-08 | Outpatient (REF) | payer MEDICARE, OTHER, SELFPAY ==
[2023-10-08 09:49] LABS: AST(SGOT) 10 U/L (15-37); Alanine Aminotransfer ALT/SGPT 18 U/L (16-61); CPK Total, Creatine Kinase 59 U/L (39-308); Cholesterol 107 mg/dL (200); High Density Lipoprotein 35 mg/dL; Triglycerides 133 mg/dL; Very Low Density Lipoprotein 27 mg/dL (5-40)
== END ==
LOC: OLS.ACH 05:00
PROVIDERS: PCP Family Medicine; Visit Provider Internal Medicine
DX: E78.5 Hyperlipidemia, unspecified (principal); I44.1 Atrioventricular block, second degree; I48.91 Unspecified atrial fibrillation; I10 Essential (primary) hypertension
CPT/HCPCS: 36415; 80061; 82550; 84450; 84460

== ENCOUNTER → 2023-10-16 | Outpatient (REF) | payer MEDICARE, OTHER, SELFPAY ==
[2023-10-16 09:01] LABS: International Normalized Ratio 1.9; Prothrombin Time (Protime)PT. 21.6 SECONDS (11.7-14.9)
== END ==
LOC: OLS.ACH 05:00
PROVIDERS: PCP Family Medicine; Visit Provider Internal Medicine
DX: Z79.01 Long term (current) use of anticoagulants (principal)
CPT/HCPCS: 36415; 85610

== ENCOUNTER → 2023-10-25 05:00 | Outpatient (REF) | payer MEDICARE, OTHER, SELFPAY ==
[2023-10-25 09:58] LABS: International Normalized Ratio 3.2; Prothrombin Time (Protime)PT. 32.9 SECONDS (11.7-14.9)
== END ==
LOC: OLS.ACH 05:00
PROVIDERS: PCP Family Medicine; Visit Provider Internal Medicine
DX: Z79.01 Long term (current) use of anticoagulants (principal)
CPT/HCPCS: 36415; 85610

== ENCOUNTER → 2023-10-28 | Outpatient (REF) | payer MEDICARE, OTHER, SELFPAY ==
[2023-10-28 08:26] LABS: INR Fingerstick 2.1; Prothrombin Time Fingerstick 21.9 SEC (11.7-14.9)
== END ==
LOC: OLS.ACH 05:00
PROVIDERS: PCP Family Medicine; Visit Provider Internal Medicine
DX: Z79.01 Long term (current) use of anticoagulants (principal)
CPT/HCPCS: 36416; 85610

== ENCOUNTER → 2023-11-04 | Outpatient (REF) | payer MEDICARE, OTHER, SELFPAY ==
[2023-11-04 08:56] LABS: Prothrombin Time Fingerstick 31.8 SEC (11.7-14.9)
== END ==
LOC: OLS.ACH 05:00
PROVIDERS: PCP Family Medicine; Visit Provider Internal Medicine
DX: Z79.01 Long term (current) use of anticoagulants (principal)
CPT/HCPCS: 36416; 85610

== ENCOUNTER → 2023-11-06 06:02 | Outpatient (REF) | payer MEDICARE, OTHER, SELFPAY ==
[2023-11-06 09:13] LABS: International Normalized Ratio 2.3; Prothrombin Time (Protime)PT. 25.2 SECONDS (11.7-14.9)
== END ==
LOC: OLS.ACH 06:02
PROVIDERS: PCP Family Medicine; Referring Provider Internal Medicine; Visit Provider Internal Medicine
DX: Z79.01 Long term (current) use of anticoagulants (principal)
CPT/HCPCS: 36415; 85610

== ENCOUNTER → 2023-11-11 05:00 | Outpatient (REF) | payer MEDICARE, OTHER, SELFPAY ==
[2023-11-11 08:28] LABS: Prothrombin Time Fingerstick 21.6 SEC (11.7-14.9)
== END ==
LOC: OLS.ACH 05:00
PROVIDERS: PCP Family Medicine; Visit Provider Internal Medicine
DX: Z79.01 Long term (current) use of anticoagulants (principal)
CPT/HCPCS: 36416; 85610

== ENCOUNTER → 2023-11-18 05:00 | Outpatient (REF) | payer MEDICARE, OTHER, SELFPAY ==
[2023-11-18 08:24] LABS: INR Fingerstick 2.4; Prothrombin Time Fingerstick 26.2 SEC (11.7-14.9)
== END ==
LOC: OLS.ACH 05:00
PROVIDERS: PCP Family Medicine; Visit Provider Internal Medicine
DX: Z86.711 Personal history of pulmonary embolism (principal); I48.0 Paroxysmal atrial fibrillation
CPT/HCPCS: 36416; 85610

== ENCOUNTER → 2023-11-25 | Outpatient (REF) | payer MEDICARE, OTHER, SELFPAY ==
[2023-11-25 08:44] LABS: INR Fingerstick 2.1; Prothrombin Time Fingerstick 23.3 SEC (11.7-14.9)
== END ==
LOC: OLS.ACH 05:00
PROVIDERS: PCP Family Medicine; Visit Provider Internal Medicine
DX: Z79.01 Long term (current) use of anticoagulants (principal)
CPT/HCPCS: 36416; 85610

== ENCOUNTER → 2023-12-02 | Outpatient (REF) | payer MEDICARE, OTHER, SELFPAY ==
[2023-12-02 10:03] LABS: INR Fingerstick 2.8; Prothrombin Time Fingerstick 28.8 SEC (11.7-14.9)
== END ==
LOC: OLS.ACH 05:00
PROVIDERS: PCP Family Medicine; Visit Provider Internal Medicine
DX: Z79.01 Long term (current) use of anticoagulants (principal)
CPT/HCPCS: 36416; 85610

== ENCOUNTER → 2023-12-10 05:00 | Outpatient (REF) | payer MEDICARE, OTHER, SELFPAY ==
[2023-12-10 08:53] LABS: INR Fingerstick 3.5; Prothrombin Time Fingerstick 34.9 SEC (11.7-14.9)
== END ==
LOC: OLS.ACH 05:00
PROVIDERS: PCP Family Medicine; Visit Provider Internal Medicine
DX: Z79.01 Long term (current) use of anticoagulants (principal)
CPT/HCPCS: 36416; 85610

== ENCOUNTER → 2023-12-11 04:00 | Outpatient (REF) | payer MEDICARE, OTHER, SELFPAY ==
[2023-12-11 08:28] LABS: International Normalized Ratio 3.1
== END ==
LOC: OLS.ACH 04:00
PROVIDERS: PCP Family Medicine; Referring Provider Internal Medicine; Visit Provider Internal Medicine
DX: Z79.01 Long term (current) use of anticoagulants (principal)
CPT/HCPCS: 36415; 85610

== ENCOUNTER → 2023-12-12 05:00 | Outpatient (REF) | payer MEDICARE, OTHER, SELFPAY ==
[2023-12-12 08:37] LABS: INR Fingerstick 2.3; Prothrombin Time Fingerstick 23.8 SEC (11.7-14.9)
== END ==
LOC: OLS.ACH 05:00
PROVIDERS: PCP Family Medicine; Visit Provider Internal Medicine
DX: Z79.01 Long term (current) use of anticoagulants (principal)
CPT/HCPCS: 36416; 85610

== ENCOUNTER → 2023-12-19 05:00 | Outpatient (REF) | payer MEDICARE, OTHER, SELFPAY ==
[2023-12-19 09:16] LABS: International Normalized Ratio 3.4; Prothrombin Time (Protime)PT. 33.7 SECONDS (11.7-14.9)
== END ==
LOC: OLS.ACH 05:00
PROVIDERS: PCP Family Medicine; Visit Provider Internal Medicine
DX: I48.0 Paroxysmal atrial fibrillation (principal); Z79.01 Long term (current) use of anticoagulants; Z86.711 Personal history of pulmonary embolism
CPT/HCPCS: 36415; 85610

== ENCOUNTER → 2023-12-20 05:00 | Outpatient (REF) | payer MEDICARE, OTHER, SELFPAY ==
[2023-12-20 07:50] LABS: INR Fingerstick 2.3; Prothrombin Time Fingerstick 24.1 SEC (11.7-14.9)
== END ==
LOC: OLS.ACH 05:00
PROVIDERS: PCP Family Medicine; Visit Provider Internal Medicine
DX: Z79.4 Long term (current) use of insulin (principal)
CPT/HCPCS: 36416; 85610

== ENCOUNTER → 2023-12-27 05:00 | Outpatient (REF) | payer MEDICARE, OTHER, SELFPAY ==
[2023-12-27 08:23] LABS: INR Fingerstick 2.1; Prothrombin Time Fingerstick 22.2 SEC (11.7-14.9)
== END ==
LOC: OLS.ACH 05:00
PROVIDERS: PCP Family Medicine; Visit Provider Internal Medicine
DX: Z79.01 Long term (current) use of anticoagulants (principal)
CPT/HCPCS: 36416; 85610

== ENCOUNTER → 2023-12-30 04:00 | Outpatient (REF) | payer MEDICARE, OTHER, SELFPAY ==
[2023-12-30 08:14] LABS: INR Fingerstick 2.6; Prothrombin Time Fingerstick 26.9 SEC (11.7-14.9)
== END ==
LOC: OLS.ACH 04:00
PROVIDERS: PCP Family Medicine; Referring Provider Internal Medicine; Visit Provider Internal Medicine
DX: I48.0 Paroxysmal atrial fibrillation (principal); Z79.01 Long term (current) use of anticoagulants
CPT/HCPCS: 36416; 85610

== ENCOUNTER → 2024-01-06 05:00 | Outpatient (REF) | payer MEDICARE, OTHER, SELFPAY ==
[2024-01-06 08:18] LABS: Prothrombin Time Fingerstick 20.9 SEC (11.7-14.9)
== END ==
LOC: OLS.ACH 05:00
PROVIDERS: PCP Family Medicine; Visit Provider Internal Medicine
DX: I48.0 Paroxysmal atrial fibrillation (principal); Z79.01 Long term (current) use of anticoagulants
CPT/HCPCS: 36416; 85610

== ENCOUNTER → 2024-01-13 04:00 | Outpatient (REF) | payer MEDICARE, OTHER, SELFPAY ==
[2024-01-13 08:36] LABS: International Normalized Ratio 3.9; Prothrombin Time (Protime)PT. 37.6 SECONDS (11.7-14.9)
== END ==
LOC: OLS.ACH 04:00
PROVIDERS: PCP Family Medicine; Visit Provider Internal Medicine
DX: Z79.01 Long term (current) use of anticoagulants (principal)
CPT/HCPCS: 36415; 85610

== ENCOUNTER → 2024-01-14 05:00 | Outpatient (REF) | payer MEDICARE, OTHER, SELFPAY ==
[2024-01-14 08:40] LABS: INR Fingerstick 3.8; Prothrombin Time Fingerstick 37.5 SEC (11.7-14.9)
== END ==
LOC: OLS.ACH 05:00
PROVIDERS: PCP Family Medicine; Visit Provider Internal Medicine
DX: Z79.01 Long term (current) use of anticoagulants (principal)
CPT/HCPCS: 36416; 85610

== ENCOUNTER → 2024-01-15 04:00 | Outpatient (REF) | payer MEDICARE, OTHER, SELFPAY ==
[2024-01-15 09:02] LABS: Hematocrit 40.5 % (40-54); Mean Corp Hgb Conc 32.1 g/dL (32-36); Mean Corpuscular Hgb 27.6 pg (27.0-32.0); Mean Platelet Vol. 9.7 fl (6.2-12.0); Platelet Count 228 K/mm3 (150-450); RBC Distribution Width CV 14.4 % (11.6-14.6); RBC Distribution Width SD 44.4 fl (35.1-43.9); Red Blood Count 4.71 M/mm3 (4.6-6.2); White Blood Count 8.8 K/mm3 (4.4-11.0)
[2024-01-15 09:16] LABS: International Normalized Ratio 2.5; Prothrombin Time (Protime)PT. 27.2 SECONDS (11.7-14.9)
[2024-01-15 09:17] LABS: AST(SGOT) 8 U/L (15-37); Alanine Aminotransfer ALT/SGPT 27 U/L (16-61); Albumin, Serum 3.2 g/dL (3.2-5.0); Alkaline Phosphatase 105 U/L (45-117); Anion Gap 6 (5-15); BUN 28 mg/dL (7-18); Calcium,Total 9.1 mg/dL (8.5-10.1); Chloride 105 mmol/L (98-107); Creatinine, Serum 1.27 mg/dL (0.70-1.30); EST Glomerular Filtration Rate 59 mL/min (>60); Est Glom Filt Rate - Afr Amer 71 mL/min (>60); Globulin 3.1 g/dL (2.2-4.2); Glucose 150 mg/dL (74-106); Potassium 4.1 mmol/L (3.5-5.1); Protein, Total 6.3 g/dL (6.4-8.2); Sodium Level 141 mmol/L (136-145); Thyroid Stim Hormone (TSH) 1.55 uIU/mL (0.358-3.74)
[2024-01-15 09:59] LABS: Hemoglobin A1c 6.5 % (3.8-5.6)
[2024-01-16 13:53] LABS: Vitamin D,25 Hydroxy 91.1 ng/mL
== END ==
LOC: OLS.ACH 04:00
PROVIDERS: PCP Family Medicine; Referring Provider Internal Medicine; Visit Provider Internal Medicine
DX: I12.9 Hypertensive chronic kidney disease with stage 1 through stage 4 chronic kidney disease, or unspecified chronic kidney disease (principal); E11.51 Type 2 diabetes mellitus with diabetic peripheral angiopathy without gangrene; I48.0 Paroxysmal atrial fibrillation; D50.0 Iron deficiency anemia secondary to blood loss (chronic); I73.89 Other specified peripheral vascular diseases
CPT/HCPCS: 36415; 80053; 82306; 83036; 84443; 85027; 85610

== ENCOUNTER → 2024-01-20 07:40 | Outpatient (REF) | payer MEDICARE, OTHER, SELFPAY ==
[2024-01-20 10:25] LABS: International Normalized Ratio 2.3; Prothrombin Time (Protime)PT. 25.4 SECONDS (11.7-14.9)
== END ==
LOC: OLS.ACH 07:40
PROVIDERS: PCP Family Medicine; Referring Provider Internal Medicine; Visit Provider Internal Medicine
DX: Z79.01 Long term (current) use of anticoagulants (principal)
CPT/HCPCS: 36415; 85610

== ENCOUNTER → 2024-01-27 | Outpatient (REF) | payer MEDICARE, OTHER, SELFPAY ==
[2024-01-27 07:18] LABS: INR Fingerstick 2.1; Prothrombin Time Fingerstick 22.1 SEC (11.7-14.9)
== END ==
LOC: OLS.ACH 04:00
PROVIDERS: PCP Family Medicine; Referring Provider Internal Medicine; Visit Provider Internal Medicine
DX: Z79.01 Long term (current) use of anticoagulants (principal)
CPT/HCPCS: 36416; 85610

== ENCOUNTER → 2024-02-03 | Outpatient (REF) | payer MEDICARE, OTHER, SELFPAY ==
[2024-02-03 08:26] LABS: INR Fingerstick 2.6; Prothrombin Time Fingerstick 26.7 SEC (11.7-14.9)
== END ==
LOC: OLS.ACH 05:00
PROVIDERS: PCP Family Medicine; Visit Provider Internal Medicine
DX: Z79.01 Long term (current) use of anticoagulants (principal)
CPT/HCPCS: 36416; 85610

== ENCOUNTER → 2024-02-10 | Outpatient (REF) | payer MEDICARE, OTHER, SELFPAY ==
[2024-02-10 09:45] LABS: International Normalized Ratio 3.3; Prothrombin Time (Protime)PT. 33.5 SECONDS (11.7-14.9)
== END ==
LOC: OLS.ACH 05:00
PROVIDERS: PCP Family Medicine; Visit Provider Internal Medicine
DX: Z79.01 Long term (current) use of anticoagulants (principal)
CPT/HCPCS: 36415; 85610

== ENCOUNTER → 2024-02-11 | Outpatient (REF) | payer MEDICARE, OTHER, SELFPAY ==
[2024-02-11 08:20] LABS: International Normalized Ratio 3.5; Prothrombin Time (Protime)PT. 34.9 SECONDS (11.7-14.9)
== END ==
LOC: OLS.ACH 05:00
PROVIDERS: PCP Family Medicine; Visit Provider Internal Medicine
DX: I48.0 Paroxysmal atrial fibrillation (principal); Z79.01 Long term (current) use of anticoagulants
CPT/HCPCS: 36415; 85610

== ENCOUNTER → 2024-02-12 | Outpatient (REF) | payer MEDICARE, OTHER, SELFPAY ==
[2024-02-12 08:04] LABS: International Normalized Ratio 2.6; Prothrombin Time (Protime)PT. 27.9 SECONDS (11.7-14.9)
== END ==
LOC: OLS.ACH 05:00
PROVIDERS: PCP Family Medicine; Visit Provider Internal Medicine
DX: I48.0 Paroxysmal atrial fibrillation (principal)
CPT/HCPCS: 36415; 85610

== ENCOUNTER → 2024-02-17 | Outpatient (REF) | payer MEDICARE, OTHER, SELFPAY ==
[2024-02-17 08:10] LABS: INR Fingerstick 1.8; Prothrombin Time Fingerstick 19.6 SEC (11.7-14.9)
== END ==
LOC: OLS.ACH 04:00
PROVIDERS: PCP Family Medicine; Visit Provider Internal Medicine
DX: Z79.01 Long term (current) use of anticoagulants (principal)
CPT/HCPCS: 36416; 85610

== ENCOUNTER → 2024-02-19 | Outpatient (REF) | payer MEDICARE, OTHER, SELFPAY ==
[2024-02-19 09:43] LABS: International Normalized Ratio 2.2; Prothrombin Time (Protime)PT. 24.6 SECONDS (11.7-14.9)
== END ==
LOC: OLS.ACH 05:00
PROVIDERS: PCP Family Medicine; Visit Provider Internal Medicine
DX: I48.0 Paroxysmal atrial fibrillation (principal)
CPT/HCPCS: 36415; 85610

== ENCOUNTER → 2024-02-24 04:00 | Outpatient (REF) | payer MEDICARE, OTHER, SELFPAY ==
[2024-02-24 09:30] LABS: International Normalized Ratio 2.9; Prothrombin Time (Protime)PT. 30.1 SECONDS (11.7-14.9)
== END ==
LOC: OLS.ACH 04:00
PROVIDERS: PCP Family Medicine; Visit Provider Internal Medicine
DX: Z79.01 Long term (current) use of anticoagulants (principal)
CPT/HCPCS: 36415; 85610

== ENCOUNTER → 2024-03-02 05:00 | Outpatient (REF) | payer MEDICARE, OTHER, SELFPAY ==
[2024-03-02 08:17] LABS: INR Fingerstick 1.7; Prothrombin Time Fingerstick 18.4 SEC (11.7-14.9)
== END ==
LOC: OLS.ACH 05:00
PROVIDERS: PCP Family Medicine; Visit Provider Internal Medicine
DX: Z79.01 Long term (current) use of anticoagulants (principal)
CPT/HCPCS: 36416; 85610

== ENCOUNTER → 2024-04-08 | Outpatient (REF) | payer MEDICARE, OTHER, SELFPAY ==
[2024-04-08 08:48] LABS: Absolute Lymphocyte Count 2.54 X10^3/uL (0.83-4.51); Absolute Neutrophil Count 7.3 X10^3/uL (2.0-7.7); Basophil# 0.03 X10^3/uL; Basophil% 0.3 % (0-1); Eosinophil# 0.41 X10^3/uL; Eosinophils% 3.7 % (0-5); Hematocrit 40.4 % (40-54); Hemoglobin 12.7 g/dL (13.0-16.5); Lymphocyte # 2.54 X10^3/ul (0.83-4.51); Lymphocyte % 22.8 % (19-41); Mean Corp Hgb Conc 31.4 g/dL (32-36); Mean Corpuscular Hgb 27.3 pg (27.0-32.0); Mean Corpuscular Volume 86.7 fL (80-94); Mean Platelet Vol. 9.3 fl (6.2-12.0); Monocyte% 6.3 % (0-10); NRBC Flagged by Analyzer 0 % (0-5); Neutrophil # 7.26 X10^3/uL (2.7-7.7); Neutrophil % 64.9 % (47-70); Platelet Count 243 K/mm3 (150-450); RBC Distribution Width CV 14.6 % (11.6-14.6); RBC Distribution Width SD 45.9 fl (35.1-43.9); Red Blood Count 4.66 M/mm3 (4.6-6.2); White Blood Count 11.2 K/mm3 (4.4-11.0)
[2024-04-08 09:05] LABS: ALB/GLOB Ratio 1.1 RATIO (0.9-2.4); AST(SGOT) 7 U/L (15-37); Alanine Aminotransfer ALT/SGPT 18 U/L (16-61); Albumin, Serum 3.1 g/dL (3.2-5.0); Alkaline Phosphatase 97 U/L (45-117); Anion Gap 5 (5-15); BUN 32 mg/dL (7-18); BUN/Creat Ratio 29.1 RATIO (10-20); Calcium,Total 9.3 mg/dL (8.5-10.1); Chloride 106 mmol/L (98-107); Cholesterol 100 mg/dL (200); EST Glomerular Filtration Rate 69 mL/min (>60); Est Glom Filt Rate - Afr Amer 84 mL/min (>60); Globulin 2.8 g/dL (2.2-4.2); Glucose 133 mg/dL (74-106); High Density Lipoprotein 34 mg/dL; Potassium 3.8 mmol/L (3.5-5.1); Protein, Total 5.9 g/dL (6.4-8.2); Sodium Level 140 mmol/L (136-145); Triglycerides 148 mg/dL; Very Low Density Lipoprotein 30 mg/dL (5-40)
== END ==
LOC: OLS.ACH 05:05
PROVIDERS: PCP Family Medicine; Visit Provider Internal Medicine
DX: I70.0 Atherosclerosis of aorta (principal); E78.5 Hyperlipidemia, unspecified
CPT/HCPCS: 36415; 80053; 80061; 85025

== ENCOUNTER → 2024-04-09 | Outpatient (REF) | payer MEDICARE, OTHER, SELFPAY ==
[2024-04-09 08:54] LABS: Hematocrit 39.6 % (40-54); Hemoglobin 12.4 g/dL (13.0-16.5); Mean Corp Hgb Conc 31.3 g/dL (32-36); Mean Corpuscular Volume 86.3 fL (80-94); Mean Platelet Vol. 9.4 fl (6.2-12.0); Platelet Count 223 K/mm3 (150-450); RBC Distribution Width CV 14.6 % (11.6-14.6); RBC Distribution Width SD 45.5 fl (35.1-43.9); Red Blood Count 4.59 M/mm3 (4.6-6.2); White Blood Count 11.9 K/mm3 (4.4-11.0)
== END ==
LOC: OLS.ACH 05:00
PROVIDERS: PCP Family Medicine; Visit Provider Internal Medicine
DX: D72.829 Elevated white blood cell count, unspecified (principal)
CPT/HCPCS: 36415; 85027

== ENCOUNTER → 2024-04-10 | Outpatient (REF) | payer MEDICARE, OTHER, SELFPAY ==
[2024-04-10 08:50] LABS: Bacteria 0 SEEN /hpf (None Seen); Mucous, Urine 0 SEEN /hpf (<or=2+); Red Blood Cells-Urine 0 SEEN /hpf (0-5); Squamous Epithelial Cells - UA 0 SEEN /hpf (0-5); White Blood Cells 0 SEEN /hpf (0-5)
[2024-04-10 08:55] LABS: Color, Urine Yellow (Yellow); Glucose, Dipstick Normal (Normal); Ketone-Dipstick Negative (Negative); Leukocyte Esterase-Dipstick Negative /ul (Negative); Nitrite-Dipstick Negative (Negative); Occult Blood-Urine Negative /ul (Negative); Protein-Dipstick Negative (Negative); Specific Gravity, Urine 1.015 (1.002-1.030); Urine Bilirubin Dipstick Negative (Negative); Urine Clarity Clear (Clear); Urine Urobilinogen Normal (Normal)
[2024-04-10 09:25] LABS: Hematocrit 41.3 % (40-54); Hemoglobin 13.1 g/dL (13.0-16.5); Mean Corp Hgb Conc 31.7 g/dL (32-36); Mean Corpuscular Hgb 27.3 pg (27.0-32.0); Mean Platelet Vol. 9.4 fl (6.2-12.0); Platelet Count 256 K/mm3 (150-450); RBC Distribution Width CV 14.5 % (11.6-14.6); White Blood Count 10.8 K/mm3 (4.4-11.0)
== END ==
LOC: OLS.ACH 05:00
PROVIDERS: PCP Family Medicine; Visit Provider Internal Medicine
DX: D72.829 Elevated white blood cell count, unspecified (principal); R39.9 Unspecified symptoms and signs involving the genitourinary system
CPT/HCPCS: 36415; 81001; 85027; 87086

== ENCOUNTER → 2024-04-14 | Outpatient (REF) | payer MEDICARE, OTHER, SELFPAY ==
[2024-04-14 09:36] LABS: Hematocrit 39.3 % (40-54); Hemoglobin 12.3 g/dL (13.0-16.5); Mean Corp Hgb Conc 31.3 g/dL (32-36); Mean Corpuscular Hgb 27.3 pg (27.0-32.0); Mean Corpuscular Volume 87.3 fL (80-94); Mean Platelet Vol. 9.6 fl (6.2-12.0); Platelet Count 224 K/mm3 (150-450); RBC Distribution Width CV 14.6 % (11.6-14.6); RBC Distribution Width SD 46.6 fl (35.1-43.9); White Blood Count 8.5 K/mm3 (4.4-11.0)
[2024-04-14 10:02] LABS: AST(SGOT) 5 U/L (15-37); Alanine Aminotransfer ALT/SGPT 17 U/L (16-61); Albumin, Serum 3.1 g/dL (3.2-5.0); Alkaline Phosphatase 115 U/L (45-117); Anion Gap 4 (5-15); BUN 24 mg/dL (7-18); BUN/Creat Ratio 21.2 RATIO (10-20); Calcium,Total 9.6 mg/dL (8.5-10.1); Chloride 108 mmol/L (98-107); Creatinine, Serum 1.13 mg/dL (0.70-1.30); EST Glomerular Filtration Rate 67 mL/min (>60); Est Glom Filt Rate - Afr Amer 81 mL/min (>60); Glucose 128 mg/dL (74-106); Potassium 4.2 mmol/L (3.5-5.1); Protein, Total 6.1 g/dL (6.4-8.2); Sodium Level 141 mmol/L (136-145)
[2024-04-14 11:00] LABS: Hemoglobin A1c 6.5 % (3.8-5.6)
== END ==
LOC: OLS.ACH 05:00
PROVIDERS: PCP Family Medicine; Visit Provider Internal Medicine
DX: E11.40 Type 2 diabetes mellitus with diabetic neuropathy, unspecified (principal); E11.22 Type 2 diabetes mellitus with diabetic chronic kidney disease; D50.0 Iron deficiency anemia secondary to blood loss (chronic); N18.31 Chronic kidney disease, stage 3a
CPT/HCPCS: 36415; 80053; 83036; 85027

== ENCOUNTER 2024-06-01 09:37 | Day surgery (SDC) | payer MEDICARE, OTHER, SELFPAY ==
--- NOTE | 2024-06-01 10:30 | RAD_ITS ---
PROCEDURE: Caudal block. DATE OF EXAMINATION: June 01, 2024. INDICATION: Male, 78 years old. Chronic low back pain. FLUOROSCOPY TIME (if supplied): (2.6 seconds) minutes/seconds. 0.72 mGy. One image was submitted. RAD/Fluor Guidance for Spine Inj IMPRESSION: Intraoperative imaging provided for caudal block. Electronically Signed: Ravindra Sierra MD at 12:53 EST ,
[2024-06-01 10:39] VITALS: BP 131/66; PULSE 58; RESP 18; TEMP 36.6; O2SAT 98; BMI 31.8
[2024-06-01 11:08] VITALS: BP 122/68; BP 134/60; O2SAT 88; O2SAT 92
[2024-06-01] MEDS: Bupivacaine 0.25% 30 ML Vial (11:10)
[2024-06-01] MEDS: MethylPREDNISolone Acetate 80 MG/ML Vial (11:10)
[2024-06-01] MEDS: Lidocaine 1% (5 ml sdv) 5 ML Vial (11:11)
[2024-06-01] MEDS: 0.9% Normal Saline (Pres. free 10 ML Vial (11:11)
[2024-06-01 11:31] VITALS: BP 122/61; PULSE 66; RESP 16; TEMP 36.4; O2SAT 98
--- NOTE | 2024-06-01 11:41 | OP.PCM_ITS ---
Operative Report (Standard) Operative Information Surgery/Procedure Performed: Diagnostic/therapeutic caudal epidural steroid injection Surgeon: Kee Merritt Date of Procedure: 06/01/24 Procedure Start Time: Procedure Stop Time: Pre-Operative Diagnosis: Lumbosacral radiculopathy, lumbosacral degenerative disc disease, lumbosacral spinal stenosis Post-Operative Diagnosis: Lumbosacral radiculopathy, lumbosacral degenerative disc disease, lumbosacral spinal stenosis Select all DRAINS/GRAFTS/IMPLANTS that apply: None Type of Anesthesia: Local Estimated Blood Loss: < 1 cc Specimen collected: No Description of surgery: BLOOD LOSS: Minimal. COMPLICATIONS: None. DESCRIPTION OF PROCEDURE: History and physical of today was reviewed. Risks and benefits of the procedure were explained. The patient understood and agreed to proceed. Informed consent was obtained. IV inserted per routine protocol. The patient was taken to the operating room and placed in the prone position with a pillow positioned underneath the abdomen. The lower back and tailbone area was prepped and draped in a sterile fashion using iodine x3. Under fluoroscopy guidance on a lateral view, the caudal space was identified. The skin and subcutaneous tissue was anesthetized with approximately 3 mL of 1% lidocaine using a 25-gauge regular needle. Under direct visualization with fluoroscopy, using a 22-gauge 3-1/2-inch spinal needle, the needle was advanced via the skin through the sacral hiatus. The tip of the needle was passed thr ough the sacrococcygeal ligament and advanced to approximately S4 area. After negative aspiration of blood or CSF, a total of 3 mL of contrast was injected to confirm correct placement of the needle as well as cephalad spread. The spread was followed to approximately L5 area. After confirmation on AP as well as lateral view and repeated negative aspiration, a total of 15 mL of preservative-free 0.125% Marcaine with 80 mg of Depo-Medrol was injected easily. The needle was then removed intact. The patient experienced no sign or symptoms of intrathecal or intravascular injection. The patient experienced no paresthesia. The procedure was completed without any apparent difficulty or any complications. The patient appeared to tolerate it well. ASSESSMENT AND PLAN: This is a 78-year-old male with lumbosacral radiculopathy, lumbosacral degenerative disc disease, lumbosacral spinal stenosis, status post diagnostic/therapeutic caudal epidural steroid injection, patient will continue his current medications, patient will follow-up approximately 2 weeks for reevaluation. 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
[2024-06-01 11:57] LABS: Bedside Glucose 183 mg/dL (74-106)
== END 2024-06-01 11:40 | disposition home or self-care (01) ==
LOC: SDC 09:42 → AC 10:15
PROVIDERS: PCP Family Medicine; Referring Provider Anesthesiology Pain Medicine; Visit Provider Anesthesiology Pain Medicine
PROC: 3E0S3BZ Introduction of Anesthetic Agent into Epidural Space, Percutaneous Approach (ICD-10-PCS; CPT 62282; principal; 2024-06-01 11:25)
DX: M51.17 Intervertebral disc disorders with radiculopathy, lumbosacral region (principal); E11.9 Type 2 diabetes mellitus without complications; M48.07 Spinal stenosis, lumbosacral region
CPT/HCPCS: 62323; 64483; 77003; 82962; A4216; J3490

== ENCOUNTER → 2024-07-01 04:00 | Outpatient (REF) | payer MEDICARE, OTHER, SELFPAY ==
[2024-07-02 08:00] LABS: Vitamin D,25 Hydroxy 58.5 ng/mL
== END ==
LOC: OLS.ACH 04:00
PROVIDERS: PCP Family Medicine; Referring Provider Internal Medicine; Visit Provider Internal Medicine
DX: F32.A Depression, unspecified (principal)
CPT/HCPCS: 36415; 82306

== ENCOUNTER → 2024-07-07 | Outpatient (REF) | payer MEDICARE, OTHER, SELFPAY ==
[2024-07-07 08:30] LABS: Hematocrit 38.1 % (40-54); Hemoglobin 12.3 g/dL (13.0-16.5); Mean Corp Hgb Conc 32.3 g/dL (32-36); Mean Corpuscular Hgb 28.3 pg (27.0-32.0); Mean Corpuscular Volume 87.6 fL (80-94); Mean Platelet Vol. 9.1 fl (6.2-12.0); Platelet Count 211 K/mm3 (150-450); RBC Distribution Width CV 13.3 % (11.6-14.6); RBC Distribution Width SD 42.5 fl (35.1-43.9); Red Blood Count 4.35 M/mm3 (4.6-6.2); White Blood Count 7.6 K/mm3 (4.4-11.0)
[2024-07-07 08:54] LABS: AST(SGOT) 10 U/L (15-37); Alanine Aminotransfer ALT/SGPT 20 U/L (16-61); Albumin, Serum 2.9 g/dL (3.2-5.0); Alkaline Phosphatase 121 U/L (45-117); Anion Gap 3 (5-15); BUN 25 mg/dL (7-18); BUN/Creat Ratio 23.6 RATIO (10-20); Calcium,Total 9.1 mg/dL (8.5-10.1); Chloride 107 mmol/L (98-107); Creatinine, Serum 1.06 mg/dL (0.70-1.30); EST Glomerular Filtration Rate 72 mL/min (>60); Est Glom Filt Rate - Afr Amer 87 mL/min (>60); Glucose 130 mg/dL (74-106); Potassium 3.9 mmol/L (3.5-5.1); Protein, Total 5.9 g/dL (6.4-8.2); Sodium Level 141 mmol/L (136-145)
[2024-07-07 09:23] LABS: Hemoglobin A1c 6.4 % (3.8-5.6)
== END ==
LOC: OLS.ACH 05:00
PROVIDERS: PCP Family Medicine; Visit Provider Internal Medicine
DX: E11.22 Type 2 diabetes mellitus with diabetic chronic kidney disease (principal); E11.40 Type 2 diabetes mellitus with diabetic neuropathy, unspecified; N18.31 Chronic kidney disease, stage 3a
CPT/HCPCS: 36415; 80053; 83036; 85027

== ENCOUNTER → 2024-07-27 | Outpatient (REF) | payer MEDICARE, OTHER, SELFPAY ==
[2024-07-27 08:47] LABS: Hematocrit 35.7 % (40-54); Hemoglobin 11.5 g/dL (13.0-16.5); Mean Corp Hgb Conc 32.2 g/dL (32-36); Mean Corpuscular Hgb 28.2 pg (27.0-32.0); Mean Corpuscular Volume 87.5 fL (80-94); Mean Platelet Vol. 9.6 fl (6.2-12.0); Platelet Count 192 K/mm3 (150-450); RBC Distribution Width CV 13.5 % (11.6-14.6); RBC Distribution Width SD 43.1 fl (35.1-43.9); Red Blood Count 4.08 M/mm3 (4.6-6.2); White Blood Count 7.2 K/mm3 (4.4-11.0)
[2024-07-27 09:09] LABS: ALB/GLOB Ratio 1.1 RATIO (0.9-2.4); AST(SGOT) 10 U/L (15-37); Alanine Aminotransfer ALT/SGPT 20 U/L (16-61); Albumin, Serum 3.1 g/dL (3.2-5.0); Alkaline Phosphatase 124 U/L (45-117); Anion Gap 4 (5-15); BUN 22 mg/dL (7-18); Calcium,Total 8.9 mg/dL (8.5-10.1); Chloride 105 mmol/L (98-107); EST Glomerular Filtration Rate 69 mL/min (>60); Est Glom Filt Rate - Afr Amer 84 mL/min (>60); Globulin 2.9 g/dL (2.2-4.2); Glucose 127 mg/dL (74-106); Potassium 4.1 mmol/L (3.5-5.1); Sodium Level 137 mmol/L (136-145)
== END ==
LOC: OLS.ACH 05:00
PROVIDERS: PCP Family Medicine; Visit Provider Internal Medicine
DX: D50.0 Iron deficiency anemia secondary to blood loss (chronic) (principal); N18.31 Chronic kidney disease, stage 3a
CPT/HCPCS: 36415; 80053; 85027

== ENCOUNTER → 2024-08-04 | Outpatient (REF) | payer MEDICARE, OTHER, SELFPAY ==
[2024-08-04 08:37] LABS: Bacteria 0 SEEN /hpf (None Seen); Mucous, Urine 0 SEEN /hpf (<or=2+); Red Blood Cells-Urine 0 SEEN /hpf (0-5); Squamous Epithelial Cells - UA 0 SEEN /hpf (0-5)
[2024-08-04 08:52] LABS: Hematocrit 41.3 % (40-54); Hemoglobin 12.9 g/dL (13.0-16.5); Mean Corp Hgb Conc 31.2 g/dL (32-36); Mean Corpuscular Hgb 27.3 pg (27.0-32.0); Mean Corpuscular Volume 87.3 fL (80-94); Mean Platelet Vol. 9.3 fl (6.2-12.0); Platelet Count 295 K/mm3 (150-450); RBC Distribution Width SD 41.8 fl (35.1-43.9); Red Blood Count 4.73 M/mm3 (4.6-6.2); White Blood Count 9.3 K/mm3 (4.4-11.0)
[2024-08-04 09:02] LABS: AST(SGOT) 12 U/L (15-37); Alanine Aminotransfer ALT/SGPT 19 U/L (16-61); Albumin, Serum 3.5 g/dL (3.2-5.0); Alkaline Phosphatase 125 U/L (45-117); Anion Gap 7 (5-15); BUN 27 mg/dL (7-18); BUN/Creat Ratio 21.1 RATIO (10-20); Calcium,Total 9.7 mg/dL (8.5-10.1); Chloride 104 mmol/L (98-107); Creatinine, Serum 1.28 mg/dL (0.70-1.30); EST Glomerular Filtration Rate 58 mL/min (>60); Est Glom Filt Rate - Afr Amer 70 mL/min (>60); Globulin 3.5 g/dL (2.2-4.2); Glucose 128 mg/dL (74-106); Potassium 3.9 mmol/L (3.5-5.1); Sodium Level 140 mmol/L (136-145)
[2024-08-04 09:18] LABS: Color, Urine Yellow (Yellow); Glucose, Dipstick Normal (Normal); Ketone-Dipstick Negative (Negative); Leukocyte Esterase-Dipstick Negative /ul (Negative); Nitrite-Dipstick Negative (Negative); Occult Blood-Urine Negative /ul (Negative); Protein-Dipstick Negative (Negative); Urine Bilirubin Dipstick Negative (Negative); Urine Clarity Clear (Clear); Urine Urobilinogen Normal (Normal)
[2024-08-04 09:27] LABS: White Blood Cells 0-5 SEEN /hpf (0-5)
== END ==
LOC: OLS.ACH 05:00
PROVIDERS: PCP Family Medicine; Visit Provider Internal Medicine
DX: E11.51 Type 2 diabetes mellitus with diabetic peripheral angiopathy without gangrene (principal); E11.40 Type 2 diabetes mellitus with diabetic neuropathy, unspecified; D50.0 Iron deficiency anemia secondary to blood loss (chronic); R39.9 Unspecified symptoms and signs involving the genitourinary system
CPT/HCPCS: 36415; 80053; 81001; 85027; 87086

== ENCOUNTER → 2024-09-29 | Outpatient (REF) | payer MEDICARE, OTHER, SELFPAY ==
[2024-09-29 07:52] LABS: Hemoglobin 11.8 g/dL (13.0-16.5); Mean Corp Hgb Conc 31.9 g/dL (32-36); Mean Corpuscular Hgb 27.9 pg (27.0-32.0); Mean Corpuscular Volume 87.5 fL (80-94); Mean Platelet Vol. 9.6 fl (6.2-12.0); Platelet Count 226 K/mm3 (150-450); RBC Distribution Width CV 13.7 % (11.6-14.6); RBC Distribution Width SD 43.7 fl (35.1-43.9); Red Blood Count 4.23 M/mm3 (4.6-6.2); White Blood Count 8.9 K/mm3 (4.4-11.0)
[2024-09-29 08:14] LABS: ALB/GLOB Ratio 1.8 RATIO (0.9-2.4); AST(SGOT) 15 U/L (<=37); Alanine Aminotransfer ALT/SGPT 19 U/L (<=46); Albumin, Serum 3.6 g/dL (3.4-4.8); Alkaline Phosphatase 101 U/L (40-129); Anion Gap 11 (5-15); BUN 23 mg/dL (4-19); BUN/Creat Ratio 20.5 RATIO (10-20); Calcium,Total 9.2 mg/dL (7.6-11.0); Carbon Dioxide 25.6 mmol/L (21.0-32.0); Chloride 104 mmol/L (98-108); EST Glomerular Filtration Rate 70 (>60); Glucose 155 mg/dL (70-99); Potassium 4.2 mmol/L (3.3-5.1); Protein, Total 5.6 g/dL (5.9-8.4); Sodium Level 141 mmol/L (133-145); Total Bilirubin 0.31 mg/dL (0.00-1.30)
[2024-09-29 08:24] LABS: Hemoglobin A1c 6.6 % (<=5.6)
== END ==
LOC: OLS.ACH 04:00
PROVIDERS: PCP Family Medicine; Referring Provider Internal Medicine; Visit Provider Internal Medicine
DX: E11.40 Type 2 diabetes mellitus with diabetic neuropathy, unspecified (principal); E11.22 Type 2 diabetes mellitus with diabetic chronic kidney disease; N18.31 Chronic kidney disease, stage 3a
CPT/HCPCS: 36415; 80053; 83036; 85027

== ENCOUNTER → 2024-10-05 | Outpatient (REF) | payer MEDICARE, OTHER, SELFPAY ==
[2024-10-05 23:12] LABS: Cholesterol 103 mg/dL (<=200); High Density Lipoprotein 31 mg/dL; Low Density Lipoprotein Calc. 31 mg/dL; Triglycerides 207 mg/dL; Very Low Density Lipoprotein 41 mg/dL (5-40); cholesterol:hdl ratio screen 3.37
== END ==
LOC: OLS.ACH 05:00
PROVIDERS: PCP Family Medicine; Visit Provider Internal Medicine
DX: E78.5 Hyperlipidemia, unspecified (principal)
CPT/HCPCS: 36415; 80061

== ENCOUNTER → 2024-11-24 05:00 | Outpatient (REF) | payer MEDICARE, OTHER, SELFPAY ==
[2024-11-24 09:27] LABS: Bacteria 0 SEEN /hpf (None Seen); Mucous, Urine 0 SEEN /hpf (<or=2+); Red Blood Cells-Urine 0 SEEN /hpf (0-5); Squamous Epithelial Cells - UA 0 SEEN /hpf (0-5)
[2024-11-24 09:54] LABS: Color, Urine Yellow (Yellow); Glucose, Dipstick Normal (Normal); Ketone-Dipstick Negative (Negative); Leukocyte Esterase-Dipstick Negative /ul (Negative); Nitrite-Dipstick Negative (Negative); Occult Blood-Urine Negative /ul (Negative); Protein-Dipstick Negative (Negative); Urine Bilirubin Dipstick Negative (Negative); Urine Clarity Clear (Clear); Urine Urobilinogen Normal (Normal)
[2024-11-24 10:02] LABS: Hemoglobin 12.1 g/dL (13.0-16.5); Mean Corp Hgb Conc 31.8 g/dL (32-36); Mean Corpuscular Hgb 27.6 pg (27.0-32.0); Mean Corpuscular Volume 86.6 fL (80-94); Mean Platelet Vol. 9.4 fl (6.2-12.0); Platelet Count 200 K/mm3 (150-450); RBC Distribution Width CV 13.4 % (11.6-14.6); RBC Distribution Width SD 41.4 fl (35.1-43.9); Red Blood Count 4.39 M/mm3 (4.6-6.2); White Blood Count 8.9 K/mm3 (4.4-11.0)
[2024-11-24 10:11] LABS: White Blood Cells 0-5 SEEN /hpf (0-5)
[2024-11-24 11:16] LABS: ALB/GLOB Ratio 1.6 RATIO (0.9-2.4); AST(SGOT) 16 U/L (<=37); Alanine Aminotransfer ALT/SGPT 14 U/L (<=46); Albumin, Serum 3.3 g/dL (3.4-4.8); Alkaline Phosphatase 101 U/L (40-129); Anion Gap 14 (5-15); BUN 22 mg/dL (4-19); BUN/Creat Ratio 19.5 RATIO (10-20); Calcium,Total 8.9 mg/dL (7.6-11.0); Carbon Dioxide 21.7 mmol/L (21.0-32.0); Chloride 105 mmol/L (98-108); Creatinine, Serum 1.15 mg/dL (0.70-1.20); EST Glomerular Filtration Rate 66 (>60); Glucose 139 mg/dL (70-99); Potassium 4.2 mmol/L (3.3-5.1); Protein, Total 5.3 g/dL (5.9-8.4); Sodium Level 141 mmol/L (133-145); Total Bilirubin 0.34 mg/dL (0.00-1.30)
== END ==
LOC: OLS.ACH 05:00
PROVIDERS: PCP Family Medicine; Visit Provider Internal Medicine
DX: E11.51 Type 2 diabetes mellitus with diabetic peripheral angiopathy without gangrene (principal); E78.5 Hyperlipidemia, unspecified
CPT/HCPCS: 36415; 80053; 81001; 85027; 87086

== ENCOUNTER → 2024-12-16 04:00 | Outpatient (REF) | payer MEDICARE, OTHER, SELFPAY ==
[2024-12-16 08:27] LABS: Vitamin D,25 Hydroxy 31.8 ng/mL (30-100)
== END ==
LOC: OLS.ACH 04:00
PROVIDERS: PCP Family Medicine; Referring Provider Internal Medicine; Visit Provider Internal Medicine
DX: F32.A Depression, unspecified (principal)
CPT/HCPCS: 36415; 82306

== ENCOUNTER → 2024-12-22 | Outpatient (REF) | payer MEDICARE, OTHER, SELFPAY ==
--- OUTSIDE RECORDS SUMMARY | 2024-12-22 04:27 | XMS RPT_ITS | CCD ---
Author Organization [facility] Care Team Providers Care Admin Assistant Name Role Phone Abdulaziz Caldera MD Primary Care Provider PHYSICIAN, NOT RECORDED Primary Care Physician U Dr. Luis Bajwa Primary Care Provider Dr. Amada Queen Admit Provider Dr. Amada Queen Attending Provider Dr. Amada Queen Other Provider Dr. Gabriel Giraldo Attending Provider Dr. Gabriel Giraldo Other Provider SREEDHAR LINARES Other Provider Dr. Hugo Cervantes Attending Provider Dr. Hugo Cervantes Other Provider Abdulaziz Caldera MD Primary Care Provider Abdulaziz Caldera MD Primary Care Provider JI SEE, DR. VELÁZQUEZ Attending Fay tracey PHYSICIAN, NOT RECORDED Primary Care Abdulaziz Painter MD Primary Care Provider Dr. Luis Caldera Primary Care Provider [phone] Dr. Olga Lidia Rasheed Attending Provider Dr. Syed Allen Emergency Provider Dr. Karen Aly Admit Provider Dr. Karen Aly Other Provider Dr. Lizzeth Riggs Other Provider Dr. Yisel Rendon Attending Provider Justice, Dr. Morillo Other Provider Dr. Maggy Roberts Emergency Provider Dr. Luis Caldera Primary Care Provider Dr. Karen Aly Admit Provider Jermain, Dr. Karen Juan Attending Provider Jermain, Dr. Karen Juan Other Provider Dr. Gabriel Giraldo Attending Provider Enzo, Dr. Rios Other Provider Dr. Dandy Sauer Emergency Provider Earnest, Dr. Davis Admit Provider Earnest, Dr. Davis Attending Provider Earnest, Dr. Davis Other Provider Dr. Liu Hackett Attending Provider Oneil, Dr. Moreau Other Provider Dr. Lizzeth Riggs Attending Provider Carolyn LOZA, PA Rebecca Damon Attending Provider Dr. Maggy Roberts Emergency Provider Dr. Luis Caldera Primary Care Provider Dr. Karen Aly Admit Provider Dr. Karen Aly Attending Provider Jermain, Dr. Karen Juan Other Provider Dr. Gabriel Giraldo Attending Provider Dr. Gabriel Giraldo Other Provider Dr. Dandy Sauer Emergency Provider Earnest, Dr. Davis Admit Provider Dr. Ryan Tinoco Attending Provider Earnest, Dr. Davis Other Provider Roxann, Dr. Hatfield Attending Provider Dr. Lizzeth Riggs Other Provider Dr. Lizzeth Riggs Attending Provider Carolyn LOZA, DENIA Damon Attending Provider Dr. Syed Allen Emergency Provider Dr. Yisel Rendon Attending Provider Dr. Yisel Rendon Other Provider Dr. Olga Lidia Rasheed Other Provider Dr. Olga Lidia Rasheed Attending Provider Dr. Caryl Mcdermott Other Provider Dr. Júnior Chandra Attending Provider Dr. Luis Caldera Referring Provider Debi Wetzel Attending Provider Unavailable Dr. Caryl Mcdermott Attending Provider Dr. Júnior Chandra Attending Provider Dr. Júnior Chandra Referring Provider Dr. Gabriel Giraldo Admit Provider Dr. Jesus Burnham Attending Provider Dr. Ian Baltazar Attending Provider Dr. Smith Leija Other Provider [phone] Dr. Ryan Tinoco Referring Provider Dr. Júnior Chandra Attending Provider Dr. Júnior Chandra Referring Provider Dr. Karen Aly Referring Provider Dr. Caryl Mcdermott Referring Provider Dr. Smith Leija Referring Provider [phone] Marcos DANIEL, AAYUSH Juarez Attending Provider Dr. Luis Caldera Primary Care Provider Dr. Karen Aly Admit Provider Dr. Karen Aly Other Provider Dr. Karen Aly Attending Provider Dr. Gabriel Giraldo Other Provider Enzo, Dr. Rios Attending Provider Dr. Luis Caldera Primary Care Provider Dr. Dandy Sauer Emergency Provider Earnest, Dr. Davis Admit Provider Earnest, Dr. Davis Attending Provider Earnest, Dr. Davis Other Provider Earnest, Dr. Davis Referring Provider Roxann, Dr. Hatfield Attending Provider Dr. Júnior Chandra Attending Provider Dr. Júnior Chandra Referring Provider Dr. Lizzeth Riggs Other Provider Dr. Lizzeth Riggs Attending Provider Carolyn LOZA, PA Rebecca Damon Attending Provider Dr. Karen Aly Referring Provider Dr. Syed Allen Emergency Provider Dr. Karen Aly Admit Provider Dr. Karen Aly Other Provider Dr. Yisel Rendon Attending Provider Dr. Yisel Rendon Other Provider Dr. Caryl Mcdermott Referring Provider Dr. Olga Lidia Rasheed Other Provider Dr. Olga Lidia Rasheed Attending Provider Dr. Karen Aly Attending Provider Dr. Caryl Mcdermott Other Provider Dr. Luis Caldera Referring Provider Debi Wetzel Attending Provider Unavailable Dr. Caryl Mcdermott Attending Provider Dr. Gabriel Giraldo Admit Provider Dr. Gabriel Giraldo Other Provider Dr. Jesus Burnham Attending Provider Dr. Ian Baltazar Attending Provider Dr. Smith Leija Referring Provider Dr. Gabriel Giraldo Attending Provider Dr. Smith Leija Other Provider [phone] Marcos DANIEL, GURPREETC Ann Attending Provider Dr. Luis Caldera Primary Care Provider Dr. Syed Allen Emergency Provider Dr. Karen Aly Admit Provider Dr. Karen Aly Other Provider Dr. Yisel Rendon Attending Provider Dr. Yisel Rendon Other Provider Roxann, Dr. Hatfield Attending Provider Dr. Caryl Mcdermott Referring Provider Dr. Júnior Chandra Attending Provider Dr. Júnior Chandra Referring Provider Dr. Dandy Sauer Emergency Provider Dr. Luis Caldera Primary Care Provider Dr. Syed Allen Emergency Provider Dr. Karen Aly Admit Provider Dr. Karen Aly Other Provider Dr. Yisel Rendon Attending Provider Dr. Yisel Rendon Other Provider Dr. Olga Lidia Rasheed Other Provider Dr. Luis Caldera Primary Care Provider Dr. Luis Caldera Referring Provider Debi Wetzel Attending Provider Unavailable Marcos SOLE SCRAPER, GURPREETC Ann Attending Provider Dr. Luis Caldera Primary Care Provider [phone] Dr. Luis Caldera Referring Provider Dr. Olga Lidia Rasheed Attending Provider Verenice COLBERT, Dr. Smith Primary Care Provider Rosita COLBERT, Walter Attending Provider Unavailable Rosita COLBERT, Walter Referring Provider Unavailable Verenice COLBERT, Dr. Smith Referring Provider [phone] Wili COLBERT, Dr. Duggan Attending Provider Deperro OLS, Walter Referring Unavailable Bursley, Luis Primary Care Unavailable Deperro OLS, Walter Attending Unavailable Bursley, Luis Primary Care Unavailable Deperro OLS, Walter Attending Unavailable Deperro OLS, Walter Attending Unavailable Bursley, Luis Primary Care Unavailable Deperro OLS, Walter Attending Unavailable Bursley, Luis Primary Care Unavailable Deperro OLS, Walter Attending Unavailable Bursley, Luis Primary Care Unavailable Deperro OLS, Walter Attending Unavailable Bursley, Luis Primary Care Unavailable Deperro OLS, Walter Referring Unavailable Deperro OLS, Walter Attending Unavailable Bursley, Luis Primary Care Unavailable Bursley, Luis Primary Care Unavailable Deperro OLS, Walter Attending Unavailable Deperro OLS, Walter Referring Unavailable Deperro OLS, Walter Attending Unavailable Bursley, Luis Primary Care Unavailable Bursley, Luis Primary Care Unavailable Deperro OLS, Walter Attending Unavailable Deperro OLS, Walter Attending Unavailable Bursley, Luis Primary Care Unavailable Deperro OLS, Walter Attending Unavailable Bursley, Luis Primary Care Unavailable Deperro OLS, Walter Attending Unavailable Bursley, Luis Primary Care Unavailable Deperro OLS, Walter Attending Unavailable Deperro OLS, Walter Referring Unavailable Bursley, Luis Primary Care Unavailable Deperro OLS, Walter Attending Unavailable Bursley, Luis Primary Care Unavailable Deperro OLS, Walter Attending Unavailable Bursley, Luis Primary Care Unavailable Deperro OLS, Walter Attending Unavailable Bursley, Luis Primary Care Unavailable Deperro OLS, Walter Attending Unavailable Deperro OLS, Walter Referring Unavailable Bursley, Luis Primary Care Unavailable Deperro OLS, Walter Attending Unavailable Bursley, Luis Primary Care Unavailable Deperro OLS, Walter Attending Unavailable Bursley, Luis Primary Care Unavailable Deperro OLS, Walter Attending Unavailable Bursley, Luis Primary Care Unavailable Deperro OLS, Walter Attending Unavailable Bursley, Luis Primary Care Unavailable Bursley, Luis Primary Care Unavailable Kee Merritt Referring Unavailable Kee Merritt Attending Unavailable Deperro OLS, Walter Referring Unavailable Deperro OLS, Walter Attending Unavailable Bursley, Luis Primary Care Unavailable WiliOlga Lidia cole Attending Unavailable Bursley, Luis Referring Unavailable Bursley, Luis Primary Care Unavailable Deperro OLS, Walter Attending Unavailable Bursley, Luis Primary Care Unavailable Wili, Olga Lidia Attending Unavailable Bursley, Luis Primary Care Unavailable Bursley, Luis Referring Unavailable Deperro OLS, Walter Attending Unavailable Bursley, Luis Primary Care Unavailable Bursley, Luis Primary Care Unavailable Deperro OLS, Walter Attending Unavailable Deperro OLS, Walter Attending Unavailable Bursley, Luis Primary Care Unavailable Deperro OLS, Walter Attending Unavailable Bursley, Luis Primary Care Unavailable Deperro OLS, Walter Attending Unavailable Bursley, Luis Primary Care Unavailable Bursley, Luis Primary Care Unavailable Deperro OLS, Walter Attending Unavailable Allergies Allergy Classification Reported Allergen(s) Allergy Type Date of Onset Reaction(s) Facility (20 sources) pantoprazole Drug Allergy 09-24-2019 Diarrhea [facility] (20 sources) Propofol Drug Allergy 12-06-2021 Other [facility] Comment on above: GETS AGGRESSIVE (1 source) Propofol Drug Allergy 10-12-2024 [facility] Repository Medications Current Medications Medication Drug Class(es) Dates Sig (Normalized) Sig (Original) acetaminophen 325 mg oral tablet (20 sources) Start: 10-07-2023 take 2 tablets by mouth every twelve hours Acetaminophen 325 mg tablet Active 650 mg PO .q12hrs October 07, 2023 2:23pm Start: 10-07-2023 take 650 mg by mouth every twelve hours Acetaminophen Active 650 MG PO .q12hrs October 07, 2023 2:23pm Start: 02-11-2023 End: 10-07-2023 take 2 tablets by mouth three times daily Acetaminophen 325 mg Tablet Discontinued 650 mg PO THREE TIMES A DAY February 11, 2023 12:00am October 07, 2023 2:24pm Start: 02-11-2023 End: 10-07-2023 take 650 mg by mouth three times daily Acetaminophen Discontinued 650 MG PO THREE TIMES A DAY February 11, 2023 12:00am October 07, 2023 2:24pm Start: 01-08-2023 End: 02-11-2023 take 2 tablets by mouth every four hours as needed for pain and fever Acetaminophen 325 mg Tablet Discontinued 650 mg PO EVERY 4 HOURS NEEDED as needed for PAIN AND FEVER 0 January 08, 2023 12:00am February 11, 2023 8:24pm Start: 01-08-2023 End: 02-11-2023 take 650 mg by mouth every four hours as needed Acetaminophen Discontinued 650 MG PO EVERY 4 HOURS NEEDED 0 January 08, 2023 12:00am February 11, 2023 8:24pm apixaban 5 mg oral tablet (2 sources) Factor Xa Inhibitor Start: 03-03-2024 take 1 tablet by mouth twice daily Apixaban (Eliquis) 5 mg tablet Active 5 mg PO TWICE A DAY 60 March 03, 2024 12:00am ascorbic acid 500 mg oral tablet (12 sources) Vitamin C Start: 01-26-2023 aspirin 81 mg delayed release oral tablet (20 sources) Platelet Aggregation Inhibitor, Nonsteroidal Anti-inflammatory Drug Start: 07-11-2022 End: 07-25-2022 take 81 mg by mouth at breakfast Aspirin Active 81 MG PO WITH BREAKFAST July 11, 2022 12:00am Start: 09-19-2013 End: 01-11-2019 take 1 tablet by mouth once daily Aspirin 81 MG Tab.Chew Discontinued 81 mg PO DAILY@0800 May 22, 2018 2:58pm January 11, 2019 12:39pm Comment on above: Take 81 mg by mouth once daily. atorvastatin 40 mg oral tablet (20 sources) HMG-CoA Reductase Inhibitor Start: End: take 1 tablet by mouth at bedtime Atorvastatin 40 MG tablet Active 40 mg PO AT BEDTIME May 22, 2018 2:58pm Start: 03-25-2018 End: 04-01-2018 take 10 mg by mouth at bedtime Atorvastatin 20 MG tabl et Discontinued 10 mg PO AT BEDTIME March 25, 2018 12:00am April 01, 2018 11:27am Start: 03-25-2018 End: 04-01-2018 take 10 mg by mouth at bedtime Atorvastatin Discontinu ed 10 MG PO AT BEDTIME March 25, 2018 12:00am April 01, 2018 11:27am Start: 03-25-2018 End: 04-01-2018 Comment on above: TAKE [address] [facility] ONCE DAILY. FOR CHOLESTEROL. bisacodyl 10 mg rectal suppository (20 sources) Stimulant Laxative Start: Bisacodyl 10 mg suppository Active 10 mg RC DAILY as needed for constipation May 30, 2023 1:00am Cholecalciferol (20 sources) Vitamin D Start: take 1 tablet by mouth once Cholecalciferol (Vitamin D3) 1,250 mcg (50,000 unit) tablet Active 1250 ug PO MO January 21, 2023 12:00am Start: 01-21-2023 take 1250 ug by mouth once Cho lecalciferol (Vitamin D3) Active 1250 MCG PO MO January 20, 2023 11:00pm Start: 01-21-2023 take 1250 ug by mouth once Cho lecalciferol (Vitamin D3) Active 1250 MCG PO MO January 21, 2023 12:00am Start: 01-03-2022 End: 07-12-2022 take 1 capsule by mouth every week cholecalciferol, Vitamin D3, (VITAMIN D3) 1,250 mcg (50,000 unit) cap capsule Indications: Vitamin D deficiency Take 1 capsule by mouth one time a week. 12 capsule 0 01/03/2022 07/12/2022 Discontinued Comment on above: Take 1 capsule by [facility] one time a week. docusate sodium 50 mg / sennosides, nursing home 8.6 mg oral tablet (12 sources) Start: 01-26-2023 Start: 01-26-2023 take 2 tablets by [facility] twice daily Sennosides-Docusate Sodium (Stool Softener-Stimulant Laxat) 8.6-50 mg Tablet Active 2 TABLET PO TWICE A DAY 0 January 26, 2023 12:00am ergocalciferol 1.25 mg oral capsule (3 sources) Provitamin D2 Compound Start: 03-02-2022 Ergocalciferol (Vitamin D2) Active 1250 MCG PO GARCIA March 01, 2022 11:00pm ferrous sulfate 325 mg oral tablet (20 sources) Start: 10-07-2023 take 1 tablet by mouth once daily Ferrous Sulfate 325 mg (65 mg iron) tablet Active 325 mg PO DAILY October 07, 2023 12:00am Start: 02-05-2023 End: 10-07-2023 take 300 mg by mouth once daily Ferrous Sulfate 300 mg (60 mg iron)/5 mL liquid Discontinued 300 mg PO DAILY February 05, 2023 12:00am October 07, 2023 2:19pm Start: 01-26-2023 End: 02-05-2023 take 1 tablet by mouth once daily Ferrous Sulfate 325 mg (65 mg iron) tablet,delayed release (DR/EC) Discontinued 325 mg PO DAILY January 26, 2023 12:00am February 05, 2023 12:24pm fluticasone propionate 0.05 mg/actuat metered dose nasal spray (20 sources) Corticosteroid Start: 11-05-2022 End: 02-03-2023 take 2 spray(s) by mouth once daily fluticasone (FLONASE) 50 mcg/actuation nasal spray Use 2 Sprays in each nostril once daily. Rinse mouth after use. 3 Each 1 11/05/2022 02/03/2023 Active Start: 07-12-2022 End: 10-15-2022 take 2 spray(s) by mouth once daily fluticasone (FLONASE) 50 mcg/actuation nasal spray Use 2 Sprays in each nostril once daily. Rinse mouth after use. 1 Each 1 08/16/2022 10/15/2022 Active Comment on above: Use 2 Sprays in each nostril once daily. Rinse mouth after use. 3 ml insulin glargine 100 unt/ml pen injector (20 sources) Insulin Analog Start: 01-26-2023 Insulin Glargine (Lantus Solostar U-100 Insulin) 100 UNITS/ML insulin pen Active 15 U SC DAILY January 26, 2023 11:45am Start: 07-12-2022 insulin glargi ne (LANTUS SOLOSTAR U-100 INSULIN) 100 unit/mL (3 mL) Indications: Type 2 diabetes mellitus with diabetic neuropathy, with long-term current use of insulin (HCC) Inject 12 Units subcutaneously daily at bedtime. 0 07/12/2022 Active Start: 07-11-2022 End: 01-26-2023 Insulin Glargine (Lantus Mily ostar U-100 Insulin) 100 UNITS/ML insulin pen Discontinued 12 U SC DAILY July 11, 2022 5:01pm January 26, 2023 11:46am Start: 02-06-2022 End: 07-12-2022 insulin glargine (LANTUS MILY OSTAR U-100 INSULIN) 100 unit/mL (3 mL) Indications: Type 2 diabetes mellitus with diabetic neuropathy, with long-term current use of insulin (HCC) Inject 24 Units subcutaneously daily at bedtime. 5 Pen 5 02/06/2022 07/12/2022 Discontinued Start: 05-22-2018 End: 07-11-2022 Insulin Glargine (Lantus Mily ostar U-100 Insulin) 100 UNITS/ML insulin pen Discontinued 24 U SC DAILY May 22, 2018 2:58pm July 11, 2022 5:01pm Start: 04-01-2018 End: 05-22-2018 Insulin Glargine (Lantus Mily ostar U-100 Insulin) 100 UNITS/ML Pen Discontinued 14 U SC DAILY April 01, 2018 12:00am May 22, 2018 2:58pm Start: 04-01-2018 End: 01-26-2023 Comment on above: Inject 24 Units subc utaneously daily at bedtime. Inject 12 Units subc utaneously daily at bedtime. Insulin Glargine (Lantus Solostar U-100 Insulin) 100 UNITS/ML insulin pen (2 sources) Start: 05-22-2018 Insulin Glargine (Lantus Solostar U-100 Insulin) 100 UNITS/ML insulin pen Active 24 UNITS SC DAILY May 22, 2018 2:58pm 3 ml insulin lispro 100 unt/ml pen injector (20 sources) Insulin Analog Start: 01-21-2023 Start: 05-22-2018 End: 06-27-2023 Insulin Lispro (Humalog Kwik pen Insulin) 100 UNIT/ML insulin pen Discontinued 0 U SQ 4 TIMES DAILY May 22, 2018 1:00am January 08, 2023 11:53am Please contact the information source for Protocol details. Start: 05-22-2018 End: 01-08-2023 Insulin Lispro (Humalog Kwik pen Insulin) 100 UNIT/ML insulin pen Discontinued 0 UNIT SQ 4 TIMES DAILY May 22, 2018 1:00am January 08, 2023 11:53am Start: 05-22-2018 End: 01-08-2023 Start: 09-16-2013 End: 09-19-2013 inject 12 [IU] by subcutaneous injection three times daily at mealtime Insulin Lispro (Humalog) 100 UNIT/ML Ml Discontinued 12 U SQ 3 TIMES DAILY WITH MEALS September 16, 2013 1:00am September 19, 2013 11:58am loperamide hydrochloride 2 mg oral capsule (20 sources) Opioid Agonist Start: 05-30-2023 Loperamide (Anti-Diarrheal (Loperamide)) 2 mg capsule Active 2 mg PO Q4H as needed for loose stool May 30, 2023 1:00am administer after each loose stool until symptoms controlled; do not exceed 8 mg per 24 hrs losartan potassium 50 mg oral tablet (20 sources) Angiotensin 2 Receptor Red Start: 03-24-2018 End: 08-09-2022 take 1 tablet by mouth once daily Losartan 50 MG tablet Active 50 mg PO DAILY March 24, 2018 12:00am Comment on above: Take 1 tablet by sajan th once daily. melatonin 3 mg oral tablet (20 sources) Start: 01-08-2023 End: 02-10-2023 take 1 tablet by mouth at bedtime Melatonin 3 mg Tablet Active 3 mg PO AT BEDTIME February 10, 2023 12:00am Start: 01-08-2023 End: 02-10-2023 memantine hydrochloride 10 mg oral tablet (20 sources) M-zquxad-C-aspartate Receptor Antagonist Start: 02-13-2023 take 1 tablet by mouth twice daily Memantine 10 mg Tablet Active 10 mg PO TWICE A DAY February 13, 2023 12:00am Start: 01-26-2023 End: 02-13-2023 take 1 tablet by mouth once daily in the evening Memantine 10 mg tablet Discontinued 10 mg PO EVERY EVENING January 26, 2023 12:00am February 13, 2023 2:15pm menthol 0.05 mg/mg topical gel (10 sources) Start: 02-10-2023 metFORMIN hydrochloride 1000 mg oral tablet (20 sources) Biguanide Start: 01-21-2023 take 1 tablet by mouth twice daily Metformin 1,000 mg tablet Active 1000 mg PO TWICE A DAY January 21, 2023 12:00am Start: 11-24-2021 End: 02-18-2023 take 2 tablets by mouth twice daily at mealtime metFORMIN ER (GLUCOPHAGE XR) 500 mg 24 hr tablet Take 2 tablets by mouth twice daily with meals. 360 tablet 1 11/20/2022 02/18/2023 Active Start: 11-20-2021 End: 05-19-2022 take 1 tablet by mouth once daily at breakfast metFORMIN ER (GLUMETZA) 500 mg 24 hr tablet Take 1 tablet by mouth daily with breakfast. 90 tablet 1 11/20/2021 01/01/2022 Discontinued Start: 05-22-2021 take 2 tablets by mo uth twice daily at mealtime metFORMIN ER (GLUCOPHAGE XR) 500 mg 24 hr tablet Take 2 tablets by mouth twice daily with meals. 360 tablet 1 05/22/2021 Active Start: 03-24-2018 take 1000 mg by mout h twice daily Metformin Active 1000 MG PO TWICE A DAY March 24, 2018 12:00am Comment on above: Take 2 tablets by mo uth twice daily with meals. Take 500 mg by mouth daily with breakfast. Take 1 tablet by sajan th daily with breakfast. 24 hr metoprolol succinate 25 mg extended release oral tablet (20 sources) beta-Adrenergic Red Start: 03-27-2023 take 1 tablet by mouth once daily Metoprolol Succinate 25 mg tablet extended release 24 hr Active 25 mg PO DAILY March 27, 2023 2:21pm Start: 09-16-2013 End: 01-26-2023 take 1 tablet by mouth once daily Metoprolol Succinate 200 MG tablet Discontinued 200 mg PO DAILY September 16, 2013 1:00am January 26, 2023 11:42am Comment on above: Take 1 tablet by sajan th once daily. mupirocin 0.02 mg/mg topical ointment (5 sources) RNA Synthetase Inhibitor Antibacterial Start: 01-02-20 End: 01-12-20 mupirocin (BACTROBAN) 2 % ointment Indications: Wound of left lower extremity, initial encounter Apply to affected area twice daily for 10 days. 30 g 1 01/01/2022 01/11/2022 Active Comment on above: Apply to affected ar ea twice daily for 10 days. pantoprazole 40 mg delayed release oral tablet (20 sources) Proton Pump Inhibitor Start: 01-27-20 End: 02-06-20 take 1 tablet by mouth twice daily Pantoprazole 40 mg tablet,delayed release (DR/EC) Active 40 mg PO TWICE A DAY 60 February 05, 2023 12:00am Start: 01-11-2019 End: 03-17-2019 Pantoprazole 40 MG tablet Di scontinued 40 mg PO TWICE A DAY 60 January 11, 2019 12:00am March 17, 2019 9:09pm BID for 2 weeks and then once daily before BF PARoxetine hydrochloride 30 mg oral tablet (2 sources) Serotonin Reuptake Inhibitor Start: 04-07-2024 take 1 tablet by mouth once daily Paroxetine Hcl 30 mg tablet Active 30 mg PO daily April 07, 2024 12:00am perflutren lipid microspheres 1.3 mL in NaCl (PF) 0.9% 10 mL injection (DEFINITY) (20 sources) Start: 07-02-2022 End: 10-01-2023 perflutren lipid microspheres 1.3 mL in NaCl (PF) 0.9% 10 mL injection (DEFINITY) Start: 07-03-2021 End: 10-02-2022 perflutren lipid microsphere s 1.3 mL in NaCl (PF) 0.9% 10 mL injection (DEFINITY) 125 ml sodium chloride 9 mg/ml prefilled syringe (20 sources) Start: 07-03-2021 End: 10-01-2023 sodium chloride 0.9 % (flush) 10 mL (BD POSIFLUSH) sucralfate 1000 mg oral tablet (20 sources) Aluminum Complex Start: 01-26-2023 End: 02-05-2023 Sucralfate 1 gram Tablet Active 1 g PO 0700,1100,1600 90 February 05, 2023 12:00am Start: 01-26-2023 End: 02-05-2023 tamsulosin hydrochloride 0.4 mg oral capsule (20 sources) alpha-Adrenergic Red Start: 01-01-2022 End: 02-05-2023 take 1 capsule by mouth at bedtime Tamsulosin 0.4 mg capsule Active 0.4 mg PO AT BEDTIME March 02, 2022 12:00am Comment on above: Take 1 capsule by mo [facility] daily at bedtime. (12 sources) Start: 01-21-2023 Completed/Discontinued Medications Medication Drug Class(es) Dates Sig (Normalized) Sig (Original) acetaminophen 325 mg / HYDROcodone bitartrate 5 mg oral tablet (20 sources) Opioid Agonist Start: 03-27-2023 End: 10-07-2023 Hydrocodone-Acetami nophen 5-325 mg tablet Discontinued 1 {tbl} PO EVERY 6 HOURS as needed for pain March 27, 2023 12:00am October 07, 2023 2:24pm Start: 03-27-2023 End: 10-07-2023 take 1 tablet by mouth every six hours Hydrocodone-Acetaminophen Discontinued 1 TABLET PO EVERY 6 HOURS March 27, 2023 12:00am October 07, 2023 2:24pm Start: 03-27-2023 acetaminophen 325 mg / oxyCODONE hydrochloride 5 mg oral tablet (20 sources) Opioid Agonist Start: 03-17-2019 End: 03-27-2019 Oxycodone-Acetaminophen 1 TABLET tablet Discontinued 1 {tbl} PO EVERY 6 HOURS NEEDED as needed for Pain 06 16March 17, 2019 March 19, 2019 12:00am March 27, 2019 12:09am Start: 03-17-2019 End: 03-27-2019 take 1 tablet by mouth every six hours as needed Oxycodone-Acetaminophen Discontinued 1 TABLET PO EVERY 6 HOURS NEEDED 06 16March 17, 2019 March 27, 2019 12:09am Start: 03-17-2019 End: 03-27-2019 amLODIPine 2.5 mg oral tablet (20 sources) Dihydropyridine Calcium Channel Red Start: 07-11-2022 End: 10-07-2023 take 1 tablet by mouth once daily Amlodipine 2.5 mg Tablet Discontinued 2.5 mg PO DAILY July 11, 2022 1:00am October 07, 2023 3:01pm Comment on above: Take 2.5 mg by mouth once daily. Take 1 tablet by sajan once daily. B cmplx 4/vit D3/C/folic/zinc (VITAL-D RX ORAL) (20 sources) B cmplx 4/vit D3/C/folic/zinc (VITAL-D RX ORAL) Take by mouth one time a week. 0 Active Comment on above: Take by mouth one ti me a week. cephalexin 500 mg oral capsule (20 sources) Cephalosporin Antibacterial Start: 02-11-2023 End: 03-27-2023 take 1 capsule by mouth three times daily Cephalexin 500 mg capsule Discontinued 500 mg PO THREE TIMES A DAY February 13, 2023 2:18pm March 27, 2023 2:19pm for 21 doses- start on 02/14/23 chlorthalidone 25 mg oral tablet (20 sources) Thiazide-like Diuretic Start: 03-24-2018 End: 04-01-2018 take 1 tablet by mouth once daily Chlorthalidone 25 MG tablet Discontinued 25 mg PO DAILY March 24, 2018 12:00am April 01, 2018 11:28am docusate sodium 100 mg oral tablet (20 sources) End: 08-09-2022 take 1 tablet by mouth once daily Docusate Sodium 100 mg tab Take 100 mg by mouth once daily. 0 08/09/2022 Discontinued Comment on above: Take 100 mg by mouth once daily. donepezil hydrochloride 10 mg oral tablet (20 sources) Start: 01-21-2023 End: 01-26-2023 take 1 tablet by mouth at bedtime Donepezil 10 mg tablet Discontinued 10 mg PO AT BEDTIME January 21, 2023 12:00am January 26, 2023 12:46pm Start: 01-21-2023 End: 01-26-2023 Start: 01-08-2023 End: 01-26-2023 take 1 tablet by mouth once daily, then take 2 tablets by mouth once daily Donepezil (Aricept) 5 mg tablet Discontinued 5 mg PO AT BEDTIME January 08, 2023 12:00am January 26, 2023 11:40am 5 mg nightly x3 weeks, then increase to 10 mg nightly thereafter 0.5 ml dulaglutide 3 mg/ml auto-injector (20 sources) GLP-1 Receptor Agonist Start: 05-22-2018 End: 01-08-2023 Dulaglutide (Trulicity) 1.5 MG/0.5 ML pen injector Discontinued 1.5 mg SQ GARCIA May 22, 2018 1:00am January 08, 2023 11:53am Saturday Start: 03-24-2018 End: 04-01-2018 Dulaglutide (Trulicity) 1.5 MG/0.5 ML Pen.Injctr Discontinued 1.5 mg SQ EVERY WEEK March 24, 2018 12:00am April 01, 2018 11:25am Comment on above: Inject 1.5 mg subcut aneously one time a week. Inject once per week. Discard Pen After DULoxetine 30 mg delayed release oral capsule (20 sources) Serotonin and Norepinephrine Reuptake Inhibitor Start: 10-07-19 End: 04-07-20 take 1 capsule by mouth once daily Duloxetine 30 mg capsule,delayed release(DR/EC) Discontinued 30 mg PO daily October 07, 2023 12:00am April 07, 2024 11:19am Start: 01-21-2023 End: 10-07-2023 take 1 capsule by mouth once daily Duloxetine (Cymbalta) 60 mg capsule,delayed release(DR/EC) Discontinued 60 mg PO DAILY January 21, 2023 12:00am October 07, 2023 2:19pm Start: 01-08-2023 End: 01-21-2023 take 1 capsule by mouth once daily at breakfast, then take 2 capsules by mouth once daily at breakfast Duloxetine (Cymbalta) 30 mg capsule,delayed release(DR/EC) Discontinued 30 mg PO DIRECTED January 08, 2023 12:00am January 21, 2023 11:40am 1 daily with breakfast for 5 days, then increase to 2 (60 mg) daily with breakfast thereafter 3 ml insulin aspart, human 100 unt/ml pen injector (20 sources) Insulin Analog Start: 08-16-2022 insulin aspart U-100 (NOVOLOG FLEXPEN U-100 INSULIN) 100 unit/mL (3 mL) Indications: Type 2 diabetes mellitus with diabetic neuropathy, with long-term current use of insulin (HCC) Inject with meals according to sliding scale: 100-200=3 units, 201-250=5 units, 251-300=8 units, 301-350=12 units, 351-400=15 units. Max dose per meal, 15 units. Max dose per day: 45 units. 5 Each 5 08/16/2022 Active Start: 10-28-2020 End: 08-09-2022 insulin aspart U-100 (NOVOLO G FLEXPEN U-100 INSULIN) 100 unit/mL (3 mL) Indications: Type 2 diabetes mellitus with diabetic neuropathy, with long-term current use of insulin (HCC) Inject with meals according to sliding scale: 100-200=3 units, 201-250=5 units, 251-300=8 units, 301-350=12 units, 351-400=15 units. 5 Each 5 08/09/2022 Active Comment on above: Inject with meals ac cording to sliding scale: 100-200=3 units, 201-250=5 units, 251-300=8 units, 301-350=12 units, 351-400=15 units. Inject with meals ac cording to sliding scale: 100-200=3 units, 201-250=5 units, 251-300=8 units, 301-350=12 units, 351-400=15 units. Max dose per meal, 15 units. Max dose per day: 45 units. lisinopril 20 mg oral tablet (20 sources) Angiotensin Converting Enzyme Inhibitor Start: 09-17-19 14 End: 09-20-19 14 take 1 tablet by mouth once daily Lisinopril 20 MG tablet Discontinued 20 mg PO DAILY September 16, 2013 1:00am September 19, 2013 11:55am pioglitazone 30 mg oral tablet (20 sources) Peroxisome Proliferator Receptor alpha Agonist, Peroxisome Proliferator Receptor gamma Agonist, Thiazolidinedione Start: 03-24-20 End: 04-01-20 take 1 tablet by mouth once daily Pioglitazone 30 MG tablet Discontinued 30 mg PO DAILY March 24, 2018 12:00am April 01, 2018 11:28am warfarin sodium 10 mg oral tablet (20 sources) Vitamin K Antagonist Start: 10-07-19 End: 03-03-20 take 1 tablet by mouth once Warfarin 10 mg tablet Discontinued 10 mg PO every Saturday, Saturday, and Saturday October 07, 2023 12:00am March 03, 2024 2:59pm Start: 10-07-2023 End: 03-03-2024 take 1 tablet by mouth once Warfarin 4 mg tablet Disco ntinued 4 mg PO every Saturday, , Saturday, and Saturday October 07, 2023 12:00am March 03, 2024 2:59pm Start: 10-07-2023 End: 03-03-2024 take 1 tablet by mouth once Warfarin 5 mg tablet Disco ntinued 5 mg PO every Saturday, , Saturday, and Saturday October 07, 2023 12:00am March 03, 2024 2:59pm Start: 02-13-2023 End: 10-07-2023 take 2 tablets by mouth at dinner Warfarin (Jantoven) 4 mg Tablet Discontinued 8 mg PO WITH DINNER 0 February 13, 2023 12:00am October 07, 2023 2:21pm On Hold: PROCEDURE/GI BLEED Start: 02-13-2023 Start: 03-02-2022 End: 02-13-2023 take 2 tablets by mouth once Warfarin 5 mg tablet Disc ontinued 10 mg PO MO March 02, 2022 12:00am February 13, 2023 2:17pm Start: 03-02-2022 End: 02-13-2023 take 10 mg by mouth once Warfarin Discontinued 10 MG PO MO March 02, 2022 12:00am February 13, 2023 2:17pm Start: 03-02-2022 Warfarin Activ e 10 MG PO MOWE March 02, 2022 12:00am Start: 12-06-2021 Warfarin Activ e 10 MG PO SUWE December 06, 2021 11:57pm pt and family unsure of dosing, will provided paperwork tomorrow. Start: 01-11-2019 End: 12-06-2021 Warfarin 10 MG tablet Discon tinued 7.5 mg PO MOTUWETHFRSA 0 January 11, 2019 12:39pm December 06, 2021 11:57pm starting 5 mg on 01/12/19 and then as written Start: 01-11-2019 End: 12-06-2021 Warfarin Discontinued 7.5 MG PO MOTUWETHFRSA 0 January 11, 2019 12:39pm December 06, 2021 11:57pm starting 5 mg on 01/12/19 and then as written Start: 11-30-2018 End: 01-11-2019 Warfarin 10 MG tablet Discon tinued 10 mg PO MOTUWETHFRSA November 30, 2018 12:00am January 11, 2019 12:39pm Start: 11-30-2018 End: 12-06-2021 Start: 05-22-2018 End: 02-13-2023 Warfarin (Jantoven) 5 MG tab let Discontinued 7.5 mg PO SUTUWETHSA May 22, 2018 2:58pm February 13, 2023 2:15pm Start: 09-19-2013 End: 02-13-2023 take 1 tablet by mouth once daily Warfarin (Jantoven) 5 MG tablet Discontinued 5 mg PO DAILY September 19, 2013 1:00am May 22, 2018 2:58pm Comment on above: 10 mg Saturday and Sat, 7.5 mg all other days. Patient has INR drawn bi-weekly. 10 mg Saturday and Sat, 7.5 mg all other days or as directed. Problems Active Problems Problem Classification Problem Date Documented Da te Episodic/Chronic Acute and unspecified renal failure (20 sources) Injury of kidney; Translations: [Acute kidney failure, unspecified] Episodic Acute myocardial infarction (20 sources) Myocardial infarction; Translations: [Non-ST elevation (NSTEMI) myocardial infarction] Chronic Acute posthemorrhagic anemia (20 sources) Acute posthemorrhagic anemia; Translations: [Acute posthemorrhagic anemia] 01-21-2023 Episodic Anxiety disorders (1 source) Generalized anxiety disorder; Translations: [Generalized anxiety disorder] Chronic Aortic; peripheral; and visceral artery aneurysms (13 sources) Thoracic aortic aneurysm without rupture; Translations: [Thoracic aortic aneurysm, without rupture] Onset: 3 Chronic Bacterial infection; unspecified site (20 sources) Bacteremia; Translations: [Bacteremia] 02-11-2023 Episodic Calculus of urinary tract (20 sources) Ureteric stone; Translations: [Calculus of ureter] 03-19-2019 Episodic Cardiac dysrhythmias (20 sources) Paroxysmal atrial fibrillation; Translations: [Paroxysmal atrial fibrillation] Onset: 3 12-03-2022 Chronic Comment on above: This happened a toni g time ago and he had cardioversion and has not had a recurrence. Chronic kidney disease (1 source) Chronic kidney disease; Translations: [Chronic kidney disease, stage 3a] Onset: 5 Coagulation and hemorrhagic disorders (20 sources) Blood coagulation disorder; Translations: [Coagulation defect, unspecified] 01-21-2023 Chronic Complications of surgical procedures or medical care (1 source) Wound dehiscence; Translations: [Disruption of wound, unspecified, initial encounter] Episodic Conditions associated with dizziness or vertigo (1 source) Dizziness; Translations: [Dizziness and giddiness] Episodic Conduction disorders (20 sources) Mobitz type II atrioventricular block; Translations: [Atrioventricular block, second degree] Onset: 4 01-22-2023 Chronic Comment on above: 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/04/23 Coronary atherosclerosis and other heart disease (1 source) Coronary atherosclerosis; Translations: [Atherosclerotic heart disease of [place] coronary artery without angina pectoris] Chronic Deficiency and other anemia (2 sources) Iron deficiency anemia secondary to blood loss (chronic); Translations: [Iron deficiency anemia secondary to blood loss (chronic)] Onset: Chronic Deficiency and other anemia (20 sources) Anemia; Translations: [Anemia, unspecified] 01-24-2023 Episodic Deficiency and other anemia (2 sources) Anemia, unspecified; Translations: [Anemia, unspecified] 01-26-2023 Episodic Diabetes mellitus with complications (20 sources) Polyneuropathy due to type 2 diabetes mellitus; Translations: [Type 2 diabetes mellitus with diabetic polyneuropathy] Onset: 1 10-26-2020 Chronic Diabetes mellitus without complication (6 sources) Type 2 diabetes mellitus; Translations: [Type 2 diabetes mellitus without complications] Onset: 4 04-07-2024 Chronic Diseases of white blood cells (3 sources) Leukocytosis; Translations: [Elevated white blood cell count, unspecified] Onset: 4 Chronic Disorders of lipid metabolism (20 sources) Hyperlipidemia; Translations: [Hyperlipidemia, unspecified] Onset: 2 05-16-2015 Chronic Diverticulosis and diverticulitis (1 source) Diverticular disease; Translations: [Diverticulosis of intestine, part unspecified, without perforation or abscess without bleeding] Chronic Essential hypertension (20 sources) Benign essential hypertension; Translations: [Essential (primary) hypertension] Onset: 3 10-28-2012 Chronic Fluid and electrolyte disorders (20 sources) Lactic acidosis; Translations: [Acidosis] Episodic Gastrointestinal hemorrhage (20 sources) Upper gastrointestinal bleeding; Translations: [Gastrointestinal hemorrhage, unspecified] 12-27-2021 Episodic Genitourinary symptoms and ill-defined conditions (4 sources) Urinary incontinence; Translations: [Unspecified urinary incontinence] Chronic Genitourinary symptoms and ill-defined conditions (1 source) Nocturia; Translations: [Nocturia] Episodic Hyperplasia of prostate (20 sources) Nocturia due to benign prostatic hypertrophy; Translations: [Benign prostatic hyperplasia with lower urinary tract symptoms] Onset: 3 Chronic Hypertension with complications and secondary hypertension (1 source) Hypertensive chronic kidney disease with stage 1 through stage 4 chronic kidney disease, or unspecified chronic kidney disease; Translations: [Hypertensive chronic kidney disease with stage 1 through stage 4 chronic kidney disease, or unspecified chronic kidney disease] Onset: 4 Chronic Infective arthritis and osteomyelitis (except that caused by tuberculosis or sexually transmitted disease) (20 sources) Osteomyelitis; Translations: [Osteomyelitis, unspecified] 12-27-2021 Chronic Comment on above: right first toe Malaise and fatigue (20 sources) Asthenia; Translations: [Weakness] Episodic Mood disorders (2 sources) Mild depression; Translations: [Mild depression] Chronic Mood disorders (1 source) Mood disorders; Translations: [Depression, unspecified] Onset: 5 Mycoses (2 sources) Onychomycosis; Translations: [Tinea unguium] Episodic Nausea and vomiting (20 sources) Nausea; Translations: [Nausea] 05-28-2018 Episodic Nutritional deficiencies (20 sources) Vitamin D deficiency; Translations: [Vitamin D deficiency, unspecified] Onset: 2 Chronic Open wounds of extremities (2 sources) Amputated toe of right foot; Translations: [Complete traumatic amputation of one right lesser toe, initial encounter] Chronic Open wounds of extremities (1 source) Disorder of lower extremity; Translations: [Unspecified open wound, left lower leg, initial encounter] Episodic Osteoarthritis (18 sources) Primary gonarthrosis, bilateral; Translations: [Bilateral primary osteoarthritis of knee] Onset: 3 Chronic Other aftercare (20 sources) Long-term current use of anticoagulant; Translations: [jail (current) use of anticoagulants] Onset: 8 11-06-2018 Episodic Other and unspecified benign neoplasm (1 source) Polyp of cecum; Translations: [Polyp of colon] Episodic Other bone disease and musculoskeletal deformities (20 sources) Absence of toe; Translations: [Acquired absence of right great toe] Onset: 0 07-20-2019 Chronic Other circulatory disease (1 source) Other specified peripheral vascular diseases; Translations: [Other specified peripheral vascular diseases] Onset: 4 Chronic Other circulatory disease (1 source) Low blood pressure; Translations: [Hypotension, unspecified] Episodic Other connective tissue disease (2 sources) Pain of toe of left foot; Translations: [Pain in left toe(s)] Episodic Other injuries and conditions due to external causes (20 sources) Heat exhaustion; Translations: [Heat exhaustion, unspecified, initial encounter] 01-06-2022 Episodic Other injuries and conditions due to external causes (3 sources) Heat exhaustion, unspecified, initial encounter; Translations: [Heat exhaustion, unspecified] Episodic Other injuries and conditions due to external causes (11 sources) At high risk for fall; Translations: [History of falling] Onset: 3 11-29-2022 Episodic Other nervous system disorders (1 source) Polyneuropathy; Translations: [Polyneuropathy, unspecified] Chronic Other nervous system disorders (20 sources) Disorder of brain; Translations: [Encephalopathy, unspecified] 01-21-2023 Chronic Other nervous system disorders (13 sources) Encephalopathy, unspecified; Translations: [Encephalopathy, unspecified] 01-21-2023 Chronic Other nervous system disorders (20 sources) Abnormal gait; Translations: [Unsteadiness on feet] 03-10-2022 Episodic Other nutritional; endocrine; and metabolic disorders (20 sources) Obese class II; Translations: [Obesity, unspecified] Onset: 8 08-19-2017 Chronic Other screening for suspected conditions (not mental disorders or infectious disease) (20 sources) Patient encounter status; Translations: [Encounter for screening for malignant neoplasm of colon] Episodic Other upper respiratory infections (1 source) Chronic frontal sinusitis; Translations: [Chronic frontal sinusitis] Chronic Renetta-; endo-; and myocarditis; cardiomyopathy (except that caused by tuberculosis or sexually transmitted disease) (20 sources) Heart valve disorder; Translations: [Endocarditis, valve unspecified] 01-22-2023 Chronic Comment on above: s/p aortic valve rep air 2006. Peripheral and visceral atherosclerosis (1 source) Atherosclerosis of aorta; Translations: [Atherosclerosis of aorta] Onset: 4 Chronic Residual codes; unclassified (20 sources) History of aortic valve repair; Translations: [Other specified postprocedural states] Onset: 6 06-20-2016 Episodic Residual codes; unclassified (20 sources) History of repair of thoracic aortic aneurysm; Translations: [Other specified postprocedural states] 07-10-2022 Episodic Residual codes; unclassified (2 sources) Altered mental status; Translations: [Altered mental status, unspecified] Episodic Residual codes; unclassified (13 sources) Other specified postprocedural states; Translations: [Other postprocedural status] Episodic Residual codes; unclassified (1 source) Driving fitness status; Translations: [Other specified personal risk factors, not elsewhere classified] Episodic Residual codes; unclassified (20 sources) Confusional state; Translations: [Disorientation, unspecified] 01-04-2023 Episodic Residual codes; unclassified (20 sources) Disorientation, unspecified; Translations: [Unspecified psychosis] 01-04-2023 Episodic Residual codes; unclassified (20 sources) Delirium; Translations: [Disorientation, unspecified] 02-11-2023 Episodic Shock (1 source) Hemorrhagic shock; Translations: [Other shock] Episodic Spondylosis; intervertebral disc disorders; other back problems (20 sources) Lumbar radiculopathy; Translations: [Radiculopathy, lumbar region] Onset: 9 03-20-2019 Episodic Syncope (20 sources) Syncope; Translations: [Syncope and collapse] Episodic Unclassified (1 source) Low back pain, unspecified; Translations: [Low back pain, unspecified] Onset: Urinary tract infections (20 sources) Urinary tract infectious disease; Translations: [Urinary tract infection, site not specified] 02-11-2023 Episodic Viral infection (20 sources) Disease caused by 2019-nCoV; Translations: [COVID-19] [...] deficiency anemia, unspecified] Onset: 03-20-2019 03-20-2019 Episodic Other aftercare (2 sources) jail (current) use of anticoagulants; Translations: [watermelon inspector (current) use of anticoagulants] Onset: 03-10-2024 Episodic Other aftercare (1 source) watermelon inspector (current) use of insulin; Translations: [jail (current) use of insulin] Onset: 12-27-2023 Episodic Other nervous system disorders (20 sources) Abnormal gait due to impairment of balance; Translations: [Other abnormalities of gait and mobility] Onset: 01-12-2022 Episodic Pulmonary heart disease (20 sources) Pulmonary embolism; Translations: [Other pulmonary embolism without acute cor pulmonale] Onset: 01-13-2024 Episodic Unclassified (20 sources) RBBB (right bundle 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) 12-27-2021 Results Test Name Value Interpretation Reference Range Facility Vitamin D,25 Hydroxyon 12-16 Vitamin D 25-OH 31.8 ng/mL Normal 30-100 [facility] Comment on above: Order Comment: 215.2 Result Comment: Laure min D Status Deficiency: <20 ng/mL (50nmol/L) Insufficiency: 20-30 ng/mL (50-75 nmol/L) Sufficiency: 30-100 ng/mL (75-250 nmol/L) Toxicity: >100 ng/mL (>250 nmol/L) Performed By: #### [id number] #### [facility] [address] [place], [place], [id number] Urine Cultureon 11-25-2024 URC Culture exhibits no growth. Normal [facility] Comment on above: Performed By: #### [id number] #### [facility] [address] [place], [place], [id number] CBC-Complete Blood Cnt No Di ffon 11-24-2024 Erythrocyte distribution width (RBC) [Ratio] 13.4 % Normal 11.6-14.6 [facility] Comment on above: Order Comment: 215.2 Performed By: #### [id number] #### [facility] [address] [place], [address] Hematocrit (Bld) [Volume fraction] 38.0 % Low 40-54 [facility] Comment on above: Order Comment: 215.2 Performed By: #### [id number] #### [facility] [address] [place], [address] Hemoglobin (Bld) [Mass/Vol] 12.1 g/dL Low 13.0-16. 5 [facility] Comment on above: Order Comment: 215.2 Performed By: #### [id number] #### [facility] [address] [place], [address] MCH (RBC) [Entitic mass] 27.6 pg Normal 27.0-32.0 [facility] Comment on above: Order Comment: 215.2 Performed By: #### [id number] #### [facility] [address] [place], [address] MCHC (RBC) [Mass/Vol] 31.8 g/dL Low 32-36 [facility] Comment on above: Order Comment: 215.2 Performed By: #### [id number] #### [facility] [address] [place], [address] MCV (RBC) [Entitic vol] 86.6 fL Normal 80-94 [facility] Comment on above: Order Comment: 215.2 Performed By: #### [id number] #### [facility] [address] [place], [address] Platelet mean volume (Bld) [Entitic vol] 9.4 fL Normal 6.2-12.0 [facility] Comment on above: Order Comment: 215.2 Performed By: #### [id number] #### [facility] [address] [place], [address] Platelets (Bld) [#/Vol] 200 10*3/uL Normal 150-450 [facility] Comment on above: Order Comment: 215.2 Performed By: #### [id number] #### [facility] [address] [place], [address] RBC (Bld) [#/Vol] 4.39 10*6/uL Low 4.6-6.2 [facility] Comment on above: Order Comment: 215.2 Performed By: #### [id number] #### [facility] [address] [place], [address] RDW SD 41.4 fl Normal 35.1-43.9 [facility] Comment on above: Order Comment: 215.2 Performed By: #### [id number] #### [facility] [address] [place], [address] WBC (Bld) [#/Vol] 8.9 10*3/uL Normal 4.4-11.0 [facility] Comment on above: Order Comment: 215.2 Performed By: #### [id number] #### [facility] [address] [place], [address] Comprehensive Metabolic Prof akon 11-24-2024 Albumin [Mass/Vol] 3.3 g/dL Low 3.4-4.8 [facility] Comment on above: Order Comment: 215.2 Performed By: #### [id number] #### [facility] [address] [place], [address] Albumin/Globulin [Mass ratio] 1.6 {ratio} Normal 0.9-2.4 [facility] Comment on above: Order Comment: 215.2 Performed By: #### [id number] #### [facility] [address] [place], [address] ALK PHOS 101 U/L Normal 40-129 [facility] Comment on above: Order Comment: 215.2 Performed By: #### [id number] #### [facility] [address] [place], [address] ALT [Catalytic activity/Vol] 14 U/L Normal <=46 [facility] Comment on above: Order Comment: 215.2 Performed By: #### [id number] #### [facility] [address] [place], [address] AST [Catalytic activity/Vol] 16 U/L Normal <=37 [facility] Comment on above: Order Comment: 215.2 Performed By: #### [id number] #### [facility] [address] [place], [address] Bilirubin [Mass/Vol] 0.34 mg/dL Normal 0.00-1.30 [facility] Comment on above: Order Comment: 215.2 Performed By: #### [id number] #### [facility] [address] [place], [address] BUN/CRE 19.5 RATIO Normal 10-20 [facility] Comment on above: Order Comment: 215.2 Performed By: #### [id number] #### [facility] [address] [place], [address] Calcium [Mass/Vol] 8.9 mg/dL Normal 7.6-11.0 [facility] Comment on above: Order Comment: 215.2 Performed By: #### [id number] #### [facility] [address] [place], [address] Chloride [Moles/Vol] 105 mmol/L Normal 98-108 [facility] Comment on above: Order Comment: 215.2 Performed By: #### [id number] #### [facility] [address] [place], [address] CO2 [Moles/Vol] 21.7 mmol/L Normal 21.0-32.0 [facility] Comment on above: Order Comment: 215.2 Performed By: #### [id number] #### [facility] [address] [place], [address] Creatinine [Mass/Vol] 1.15 mg/dL Normal 0.70-1.20 [facility] Comment on above: Order Comment: 215.2 Performed By: #### [id number] #### [facility] [address] [place], [address] GAP 14 Normal 5-15 [facility] Comment on above: Order Comment: 215.2 Performed By: #### [id number] #### [facility] [address] [place], [address] GFR/1.73 sq M.predicted among non-blacks MDRD (S/P/Bld) [Vol rate/Area] 66 mL/min/{1.73_m2} Normal >60 [facility] Comment on above: Order Comment: 215.2 Result Comment: mL/m in/1.73m2 CKD-EPI Creatinine Equation (2020) Performed By: #### [id number] #### [facility] [address] [place], [address] Globulin (S) [Mass/Vol] 2.0 g/dL Low 2.2-4.2 [facility] Comment on above: Order Comment: 215.2 Performed By: #### [id number] #### [facility] [address] [place], [address] Glucose [Mass/Vol] 139 mg/dL High 70-99 [facility] Comment on above: Order Comment: 215.2 Performed By: #### L [id number] #### [facility] [address] [place], [address] Potassium [Moles/Vol] 4.2 mmol/L Normal 3.3-5.1 [facility] Comment on above: Order Comment: 215.2 Performed By: #### L [id number] #### [facility] [address] [place], [address] Sodium [Moles/Vol] 141 mmol/L Normal 133-145 [facility] Comment on above: Order Comment: 215.2 Performed By: #### L [id number] #### [facility] [address] [place], [address] T PROT 5.3 g/dL Low 5.9-8.4 [facility] Comment on above: Order Comment: 215.2 Performed By: #### L [id number] #### [facility] [address] [place], [address] Urea nitrogen [Mass/Vol] 22 mg/dL High 4-19 [facility] Comment on above: Order Comment: 215.2 Performed By: #### L [id number] #### [facility] [address] [place], [address] Urinalysis, Completeon 11-24 WBC 0-5 SEEN Normal 0-5 [facility] Comment on above: Order Comment: LEILA TER SPECIMEN Performed By: #### L [id number] #### [facility] [address] [place], [address] BACTERIA 0 SEEN Normal None Seen [facility] Comment on above: Order Comment: LEILA TER SPECIMEN Performed By: #### L [id number] #### [facility] [address] [place], [address] EPI,SQUAMOUS 0 SEEN Normal 0-5 [facility] Comment on above: Order Comment: LEILA TER SPECIMEN Performed By: #### L [id number] #### [facility] [address] [place], [address] Mucus Ql (Urine sed) 0 SEEN Normal [facility] Comment on above: Order Comment: LEILA TER SPECIMEN Performed By: #### L [id number] #### [facility] [address] [place], [place], [id number] RBC 0 SEEN Normal 0-5 [facility] Comment on above: Order Comment: LEILA TER SPECIMEN Performed By: #### L [id number] #### [facility] [address] [place], [address] CNPNon 11-06-2024 CNPN Telephone (4CQ) RICHARD ROY ([id number]) 1945 M Date Time Provider Department 11/06/24 ABDULAZIZ CALDERA 4CQ During your visit today, we recorded the following information about you: Ann Raymond 11/06/2024 10:55 AM Signed Spoke with spouse as patient is over due for visit with PCP , stated patient is at [facility] in [place]. We did not remove PCP. Abdulaziz Caldera MD 11/06/2024 11:17 AM Signed Reviewed. Will remove myself as PCP. Allergies As of Date: 11/06/2024 Noted Allergy Reaction PANTOPRAZOLE 09/24/2019 6 - Diarrhea Date Reviewed: 01/04/2023 Reviewed by: Tamika Grijalva LPN - Fully Assessed Reason for Visit: Patient Update [1234] Prescriptions as of 11/06/2024 - metFORMIN ER (GLUCOPHAGE XR) 500 mg [...] time a week. - blood sugar diagnostic (its learningTOUCH ULTRA TEST) test strip Test blood sugar(s) 3 times daily. Dx: E11.49. Insulin: Yes Problem List As Of Date 11/06/2024 Noted Resolved Sciatica [M54.30] 05/04/2009 06/20/2016 Diabetic [...] chronic k*06/20/2016 Obesity, Class II, BMI 35-39.9 [E66.812] 08/19/2017 Chronic anticoagulation [Z79.01] 05/07/2018 Iron deficiency [...] fibrillation (HCC) [I48.0] 12/03/2022 Encounter Status:Closed by AMADA COHN on 11/06/24 Normal [facility] Cardiology Visit Reporton Cardiology Visit Report [facility] [address] [place] [address] OFFICE VISIT Date of Service: 10/12/24 MR#: [id number] Acct: [id number] Name: RICHARD ROY Rep #: [id number] : 1945 Provider: Dr. Olga Lidia Rasheed MD Age/Sex: 79/M Location: [facility] [place] Status: Signed HPI HPI History of Present Illness Details: This gentleman with history of diabetes mellitus, pulmonary embolism, sick sinus syndrome status post permanent pacemaker placement, paroxysmal atrial fibrillation and dyslipidemia is here for follow-up visit. Denies any complaints today. No chest pains. No shortness of breath. Denies any palpitations. Denies orthopnea or PND. Denies any ankle edema. Intake Vital Signs 06/01/24 10:39 10/12/24 13:12 Height 6 ft 6 ft Weight: 238 lb BMI 32.3 BP 117/57 L Blood Pressure Location Lt brachial Position Sitting Respiration 18 Pulse 65 Pulse Source Monitor Pulse Oximetry (%) 99 Oxygen Delivery Method room air Comment per senior living report Intake Visit Reasons: 6 M FU Ap Operator Required: No Accompanied by: senior living employee Is patient in pain?: No Allergies propofol Adverse Reaction (Verified 10/12/24 13:13) Other Medications ???Medication ???Instructions ???Recorded ???Confirmed ???Type losartan 50 mg tablet 50 mg PO DAILY blood pressure 03/1510/12/24 History atorvastatin 40 mg tablet 40 mg PO QHS cholesterol 05/22/18 10/12/24 History tamsulosin 0.4 mg capsule 0.4 mg PO QHS PROSTATE 03/02/22 History cholecalciferol (vitamin D3) 1,250 1,250 mcg PO MO SUPPLEMENT 01/2110/12/24 History mcg (50,000 unit) tablet metformin 1,000 mg tablet 1,000 mg PO BID DM 01/21/23 History insulin glargine 100 unit/mL (3 15 unit (0.15 mL) subcut DAILY 10/12/24 Rx mL) subcutaneous pen (Lantus diabetes #15 mL Solostar U-100 Insulin) pantoprazole 40 mg tablet,delayed 40 mg PO BID #60 tabs 02/05/23 Rx release sucralfate 1 gram tablet 1 g PO 0700,1100,1600 #90 tabs 10/12/24 Rx melatonin 3 mg tablet 3 mg PO QHS Insomnia 02/10/2309/14 History memantine 10 mg tablet 10 mg PO BID #0 tabs 02/13/2309/14 Rx metoprolol succinate 25 mg 25 mg PO DAILY blood pressure #30 03/27/23 10/12/24 Rx tablet,extended release 24 hr tabs bisacodyl 10 mg rectal suppository 10 mg ID DAILY PRN constipation 05/30/23 10/12/24 History loperamide 2 mg capsule 2 mg PO Q4H PRN loose stool 10/12/24 History (Anti-Diarrheal (loperamide)) acetaminophen 325 mg tablet 650 mg PO .q12hrs PAIN AND FEVER 0 10/07/23 10/12/24 History ferrous sulfate 325 mg (65 mg 325 mg PO DAILY 10/07/23 10/12/24 History iron) tablet apixaban 5 mg tablet (Eliquis) 5 mg PO BID #60 tabs 03/03/2409/14 Rx paroxetine HCl 30 mg tablet 30 mg PO QDAY 04/07/24 10/12/24 Hi story Have you fallen in the past year?: No PFSH Medical History (Updated 04/07/24 @ 11:[address] Olga Lidia Rasheed MD) History of stress test History of echocardiogram Cardiology follow-up encounter Uses wheelchair Difficulty swallowing History of ulceration History of GI bleed History of renal disease Prostate disease Pulmonary embolism High cholesterol Atrial tachycardia Anxiety Depression Kidney stones GI bleed Non-smoker Atrial fibrillation AAA (abdominal aortic aneurysm) Dementia Bacteremia Subtherapeutic international normalized ratio (INR) UTI (urinary tract infection) Presence of cardiac pacemaker Sick sinus syndrome Anemia Second degree AV block, Mobitz type II Supratherapeutic INR Syncope Acute encephalopathy Weakness Confusion History of pulmonary embolism NSTEMI, initial episode of care Valvular heart disease Amputation of right great toe Leukocytosis Hyperkalemia COVID-19 Ureterolithiasis Diabetes Aortic aneurysm without rupture HTN (hypertension) Lactic acidosis Upper gastrointestinal bleed Diabetic neuropathy Osteomyelitis Ulcer of right great toe due to diabetes mellitus Pulmonary emboli HLD (hyperlipidemia) RBBB (right bundle 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) Surgical History History of AAA (abdominal aortic aneurysm) repair History of foot surgery Hx of abdominal surgery H/O aortic valve repair History of thoracic aortic aneurysm repair Family History Mother Heart disease Diabetes Hypertension Father Heart disease Social History housing: senior living current occupational status: retired Smoking Status: Never smoker alcohol intake: never substance use type: does not (more content not included)... Normal [facility] Calculated very low density lipoprotein (VLDL) cholesterol measurementOrdered By: Walter Becker on 10-05-2024 VLDL Cholesterol 41 mg/dL High 5-40 [facility] LDL calc ser/plasOrdered By: Walter Becker on 10-05-2024 LDL Cholesterol, Calculated 31 mg/dL [facility] Comment on above: Txdafmgimg=[id number] m g/dL & Higher Wioc=593 mg/dL or greater Lipid Profileon 10-05-2024 CHOL:HDL 3.37 Normal [facility] Comment on above: Order Comment: 215.2 Performed By: #### L [id number] #### [facility] [address] [facility] [facility] [place], [place], [id number] (440) Cholesterol [Mass/Vol] 103 mg/dL Normal <=200 [facility] Comment on above: Order Comment: 215.2 Result Comment: Chol esterol level, Desirable <200 mg/dL Borderline high cholesterol 200-239 mg/dL High cholesterol >=240 mg/dL Recommendations of the NCEP Adult Treatment Panel for the following risk-cutoff thresholds for the [place] population. Performed By: #### L [id number] #### [facility] [address] [place], [place], [id number] ([phone]) Cholesterol in HDL [Mass/Vol] 31 mg/dL Low [facility] Comment on above: Order Comment: 215.2 Result Comment: Stephanie onal Cholesterol Education Program (NCEP) guidelines: <40 mg/dL: Low HDL-cholesterol (major risk factor for CHD) >= 60 mg/dL: High HDL-cholesterol (negative risk factor for CHD) HDL-cholesterol is affected by a number of factors, e.g. smoking, exercise, hormones, sex and age. Performed By: #### L [id number] #### [facility] [address] [place], [address] Cholesterol in LDL [Mass/Vol] 31 mg/dL Normal [facility] Comment on above: Order Comment: 215.2 Result Comment: Bord ofieks=409-812 mg/dL Higher Gwfl=073 mg/dL or greater Performed By: #### L [id number] #### [facility] [address] [place], [address] Cholesterol in VLDL [Mass/Vol] 41 mg/dL High 5-40 [facility] Comment on above: Order Comment: 215.2 Performed By: #### L [id number] #### [facility] [address] [place], [address] Triglyceride [Mass/Vol] 207 mg/dL High [facility] Comment on above: Order Comment: 215.2 Result Comment: The drugs N-Acetylcysteine and Metamizole may falsely depress this assay. Normal range: <150 mg/dL Borderline High: 150-199 mg/dL High: 200-499 mg/dL Very High: >500 mg/dL Performed By: #### L [id number] #### [facility] [address] [place], [address] Screening total cholesterol/ high density lipoprotein (HDL) cholesterol ratioOrdered By: Walter Becker on 10-05-2024 Cholesterol.total/Cholester ol in HDL [Mass ratio] 3.37 {ratio} [facility] Serum or plasma cholesterol in HDL measurement (mass/volume)Ordered By: Walter Becker on 10-05-2024 Cholesterol in HDL [Mass/Vol] 31 mg/dL Low >40 [facility] Comment on above: National Cholesterol Education Program (NCEP) guidelines:<40 mg/dL: Low HDL-cholesterol (major risk factor for CHD)>= 60 mg/dL: High HDL-cholesterol (negative risk factor for CHD)HDL-cholesterol is affected by a number of factors, e.g. smoking, exercise, hormones, sex and age. Serum or plasma cholesterol measurement (mass/volume)Ordered By: Walter Becker on 10-05-2024 Cholesterol [Mass/Vol] 103 mg/dL <201 [facility] Comment on above: Cholesterol level, D esirable <200 mg/dLBorderline high cholesterol 200-239 mg/dLHigh cholesterol >=240 mg/dLRecommendations of the NCEP Adult Treatment Panel for the following risk-cutoff thresholds for the [place] population. Triglycerides measurementOrd ered By: Walter Becker on 10-05-2024 Triglyceride [Mass/Vol] 207 mg/dL High <199 [facility] Comment on above: The drugs N-Acetylcy steine and Metamizole may falsely depress this assay. Normal range: <150 mg/dLBorderline High: 150-199 mg/dLHigh: 200-499 mg/dLVery High: >500 mg/dL Anion gap in Serum or Plasma Ordered By: Walter Becker on 09-29-2024 Anion gap [Moles/Vol] 11 mmol/L 5-15 [facility] BUN/creatinine ratioOrdered By: Walter Becker on 09-29-2024 Urea nitrogen/Creatinine [Mass ratio] 20.5 mg/mg High 10-20 [facility] Bilirubin, totalOrdered By: Walter Becker on 09-29-2024 Bilirubin [Mass/Vol] 0.31 mg/dL 0.00-1.30 [facility] CBC-Complete Blood Cnt No Di ffon 09-29-2024 Erythrocyte distribution width (RBC) [Ratio] 13.7 % Normal 11.6-14.6 [facility] Comment on above: Order Comment: 215.2 Performed By: #### L 500.4050, L501.9985, L100.0500 #### [facility] [address] [place], [address] Hematocrit (Bld) [Volume fraction] 37.0 % Low 40-54 [facility] Comment on above: Order Comment: 215.2 Performed By: #### L 500.4050, L501.9985, L100.0500 #### [facility] [address] [place], [address] Hemoglobin (Bld) [Mass/Vol] 11.8 g/dL Low 13.0-16. 5 [facility] Comment on above: Order Comment: 215.2 Performed By: #### L 500.4050, L501.9985, L100.0500 #### [facility] [address] [place], [address] MCH (RBC) [Entitic mass] 27.9 pg Normal 27.0-32.0 [facility] Comment on above: Order Comment: 215.2 Performed By: #### L 500.4050, L501.9985, L100.0500 #### [facility] [address] [place], [address] MCHC (RBC) [Mass/Vol] 31.9 g/dL Low 32-36 [facility] Comment on above: Order Comment: 215.2 Performed By: #### L 500.4050, L501.9985, L100.0500 #### [facility] [address] [place], [address] MCV (RBC) [Entitic vol] 87.5 fL Normal 80-94 [facility] Comment on above: Order Comment: 215.2 Performed By: #### L 500.4050, L501.9985, L100.0500 #### [facility] [address] [place], [address] Platelet mean volume (Bld) [Entitic vol] 9.6 fL Normal 6.2-12.0 [facility] Comment on above: Order Comment: 215.2 Performed By: #### L 500.4050, L501.9985, L100.0500 #### [facility] [address] [place], [address] Platelets (Bld) [#/Vol] 226 10*3/uL Normal 150-450 [facility] Comment on above: Order Comment: 215.2 Performed By: #### L 500.4050, L501.9985, L100.0500 #### [facility] [address] [place], [address] RBC (Bld) [#/Vol] 4.23 10*6/uL Low 4.6-6.2 [facility] Comment on above: Order Comment: 215.2 Performed By: #### L 500.4050, [id number], L100.0500 #### [facility] [address] [place], [address] RDW SD 43.7 fl Normal 35.1-43.9 [facility] Comment on above: Order Comment: 215.2 Performed By: #### L 500.4050, [id number], L100.0500 #### [facility] [address] [place], [address] WBC (Bld) [#/Vol] 8.9 10*3/uL Normal 4.4-11.0 [facility] Comment on above: Order Comment: 215.2 Performed By: #### L 500.4050, L501.9985, L100.0500 #### [facility] [address] [place], [address] Carbon dioxide, total [Moles /volume] in Central venous bloodOrdered By: Walter Becker on 09-29-2024 CO2 [Moles/Vol] 25.6 mmol/L 21.0-32.0 [facility] Chloride assayOrdered By: Horner on 09-29-2024 Chloride [Moles/Vol] 104 mmol/L 98-108 [facility] Comprehensive Metabolic Prof ilon 09-29-2024 Albumin [Mass/Vol] 3.6 g/dL Normal 3.4-4.8 [facility] Comment on above: Order Comment: 215.2 Performed By: #### L 500.4050, L501.9985, L100.0500 #### [facility] [address] [place], [address] Albumin/Globulin [Mass ratio] 1.8 {ratio} Normal 0.9-2.4 [facility] Comment on above: Order Comment: 215.2 Performed By: #### L 500.4050, L501.9985, L100.0500 #### [facility] [address] [place], [address] ALK PHOS 101 U/L Normal 40-129 [facility] Comment on above: Order Comment: 215.2 Performed By: #### L 500.4050, [id number], L100.0500 #### [facility] [address] [place], [address] ALT [Catalytic activity/Vol] 19 U/L Normal <=46 [facility] Comment on above: Order Comment: 215.2 Performed By: #### L 500.4050, [id number], L100.0500 #### [facility] [address] [place], [address] AST [Catalytic activity/Vol] 15 U/L Normal <=37 [facility] Comment on above: Order Comment: 215.2 Performed By: #### L 500.4050, L501.9985, L100.0500 #### [facility] [address] [place], [address] Bilirubin [Mass/Vol] 0.31 mg/dL Normal 0.00-1.30 [facility] Comment on above: Order Comment: 215.2 Performed By: #### L 500.4050, [id number], L100.0500 #### [facility] [address] [place], [address] BUN/CRE 20.5 RATIO High 10-20 [facility] Comment on above: Order Comment: 215.2 Performed By: #### L 500.4050, [id number], L100.0500 #### [facility] [address] [place], [address] Calcium [Mass/Vol] 9.2 mg/dL Normal 7.6-11.0 [facility] Comment on above: Order Comment: 215.2 Performed By: #### L 500.4050, [id number], L100.0500 #### [facility] [address] [place], [address] Chloride [Moles/Vol] 104 mmol/L Normal 98-108 [facility] Comment on above: Order Comment: 215.2 Performed By: #### L 500.4050, [id number], L100.0500 #### [facility] [address] [place], [address] CO2 [Moles/Vol] 25.6 mmol/L Normal 21.0-32.0 [facility] Comment on above: Order Comment: 215.2 Performed By: #### L 500.4050, [id number], L100.0500 #### [facility] [address] [place], [address] Creatinine [Mass/Vol] 1.10 mg/dL Normal 0.70-1.20 [facility] Comment on above: Order Comment: 215.2 Performed By: #### L 500.4050, [id number], L100.0500 #### [facility] [address] [place], [address] GAP 11 Normal 5-15 [facility] Comment on above: Order Comment: 215.2 Performed By: #### L 500.4050, [id number], L100.0500 #### [facility] [address] [place], [address] GFR/1.73 sq M.predicted among non-blacks MDRD (S/P/Bld) [Vol rate/Area] 70 mL/min/{1.73_m2} Normal >60 [facility] Comment on above: Order Comment: 215.2 Result Comment: mL/m in/1.73m2 CKD-EPI Creatinine Equation (2020) Performed By: #### L 500.4050, L501.9985, L100.0500 #### [facility] [address] [place], [address] Globulin (S) [Mass/Vol] 2.0 g/dL Low 2.2-4.2 [facility] Comment on above: Order Comment: 215.2 Performed By: #### L 500.4050, L501.9985, L100.0500 #### [facility] [address] [place], [address] Glucose [Mass/Vol] 155 mg/dL High 70-99 [facility] Comment on above: Order Comment: 215.2 Performed By: #### L 500.4050, L501.9985, L100.0500 #### [facility] [address] [place], [address] Potassium [Moles/Vol] 4.2 mmol/L Normal 3.3-5.1 [facility] Comment on above: Order Comment: 215.2 Performed By: #### L 500.4050, L501.9985, L100.0500 #### [facility] [address] [place], [address] Sodium [Moles/Vol] 141 mmol/L Normal 133-145 [facility] Comment on above: Order Comment: 215.2 Performed By: #### L 500.4050, L501.9985, L100.0500 #### [facility] [address] [place], [address] T PROT 5.6 g/dL Low 5.9-8.4 [facility] Comment on above: Order Comment: 215.2 Performed By: #### L 500.4050, [id number], L100.0500 #### [facility] [address] [place], [address] Urea nitrogen [Mass/Vol] 23 mg/dL High 4-19 [facility] Comment on above: Order Comment: 215.2 Performed By: #### L 500.4050, [id number], L100.0500 #### [facility] [address] [place], [address] Erythrocyte distribution wid th (RBC) [Ratio]Ordered By: Walter Becker on 09-29-2024 Erythrocyte distribution width (RBC) [Entitic vol] 43.7 fL 35.1-43.9 [facility] Erythrocyte distribution wid th ratioOrdered By: Walter Becker on 09-29-2024 Erythrocyte distribution width (RBC) [Ratio] 13.7 % 11.6-14.6 [facility] GFR/1.73 sq M.predicted kimberly g non-blacks MDRD (S/P/Bld) [Vol rate/Area]Ordered By: Walter Becker on 09-29-2024 Estimated GFR (MDRD) Non-Af Amer 70 >60 [facility] Comment on above: mL/min/1.73m2 CKD-EP I Creatinine Equation (2020) Hematocrit Auto (Bld) [Volum e fraction]Ordered By: Walter Becker on 09-29-2024 Hematocrit (Bld) [Volume fraction] 37.0 % Low 40-54 [facility] Hemoglobin A1con 09-29-2024 HbA1c (Bld) [Mass fraction] 6.6 % Normal <=5.6 [facility] Comment on above: Order Comment: 215.2 Performed By: #### L 500.4050, L501.9985, L100.0500 #### [facility] [address] [place], [address] Hemoglobin A1c percentageOrd ered By: Walter Becker on 09-29-2024 HbA1c (Bld) [Mass fraction] 6.6 % >5.7 [facility] Hemoglobin measurementOrdere d By: Walter Becker on 09-29-2024 Hemoglobin (Bld) [Mass/Vol] 11.8 g/dL Low 13.0-16. 5 [facility] - Chemistry and C hemistry - challengeOrdered By: Walter Becker on 09-29-2024 AST [Catalytic activity/Vol] 15 U/L <38 [facility] MCV (mean corpuscular volume ) determinationOrdered By: Walter Becker on 09-29-2024 MCV (RBC) [Entitic vol] 87.5 fL 80-94 [facility] Mean corpuscular hemoglobin (MCH) determinationOrdered By: Walter Becker on 09-29-2024 MCH (RBC) [Entitic mass] 27.9 pg 27.0-32.0 [facility] Mean corpuscular hemoglobin concentration (MCHC) determinationOrdered By: Walter Becker on 09-29-2024 MCHC (RBC) [Mass/Vol] 31.9 g/dL Low 32-36 [facility] Mean platelet volume determi nationOrdered By: Walter Becker on 09-29-2024 Platelet mean volume (Bld) [Entitic vol] 9.6 fL 6.2-12.0 [facility] Platelet countOrdered By: Horner on 09-29-2024 Platelets (Bld) [#/Vol] 226 10*3/uL 150-450 [facility] Potassium (Unsp spec) [Mass/ Vol]Ordered By: Walter Becker on 09-29-2024 Potassium [Moles/Vol] 4.2 mmol/L 3.3-5.1 [facility] RBC Auto (Bld) [#/Vol]Ordere d By: Walter Becker on 09-29-2024 RBC (Bld) [#/Vol] 4.23 10*6/uL Low 4.6-6.2 [facility] Serum creatinine measurement (mass/volume)Ordered By: Walter Becker on 09-29-2024 Creatinine [Mass/Vol] 1.10 mg/dL 0.70-1.20 [facility] Serum globulin measurementOr dered By: Walter Becker on 09-29-2024 Globulin (S) [Mass/Vol] 2.0 g/dL Low 2.2-4.2 [facility] Serum glucose measurement (m ass/volume)Ordered By: Walter Becker on 09-29-2024 Glucose [Mass/Vol] 155 mg/dL High 70-99 [facility] Serum or plasma alanine davis otransferase (ALT) measurementOrdered By: Walter Becker on 09-29-2024 ALT [Catalytic activity/Vol] 19 U/L <47 [facility] Serum or plasma albumin antoine urement (mass/volume)Ordered By: Walter Becker on 09-29-2024 Albumin [Mass/Vol] 3.6 g/dL 3.4-4.8 [facility] Serum or plasma albumin/glob ulin mass ratioOrdered By: Walter Becker on 09-29-2024 Albumin/Globulin [Mass ratio] 1.8 {ratio} 0.9-2.4 [facility] Serum or plasma alkaline marilin sphatase measurementOrdered By: Walter Becker on 09-29-2024 ALP [Catalytic activity/Vol] 101 U/L 40-129 [facility] Serum or plasma calcium antoine urement (mass/volume)Ordered By: Walter Becker on 09-29-2024 Calcium [Mass/Vol] 9.2 mg/dL 7.6-11.0 [facility] Serum or plasma urea nitroge n measurement (mass/volume)Ordered By: Walter Becker on 09-29-2024 Urea nitrogen [Mass/Vol] 23 mg/dL High 4-19 [facility] Sodium levelOrdered By: Walter Becker on 09-29-2024 Sodium [Moles/Vol] 141 mmol/L 133-145 [facility] Total proteinOrdered By: Crystal Becker on 09-29-2024 Protein [Mass/Vol] 5.6 g/dL Low 5.9-8.4 [facility] White blood cell (WBC) count Ordered By: Walter Becker on 09-29-2024 WBC (Bld) [#/Vol] 8.9 10*3/uL 4.4-11.0 [facility] Urine Cultureon 08-05-2024 URC Culture exhibits no growth. Normal [facility] Comment on above: Performed By: #### L [id number] #### [facility] [address] [place], [address] Albumin to globulin ratioOrd ered By: Walter Becker on 08-04-2024 Albumin/Globulin [Mass ratio] 1.0 {ratio} 0.9-2.4 [facility] Bilirubin Test strip Ql (U)O rdered By: Walter Becker on 08-04-2024 Bilirubin Ql (U) Negative Negative [facility] Bilirubin, totalOrdered By: Walter Becker on 08-04-2024 Bilirubin [Mass/Vol] 0.50 mg/dL 0.20-1.00 [facility] Comment on above: For patients on eltr ombopag therapy, use of Dimension [place] TBIL is not recommended. Blood urea nitrogen (BUN)/cr eatinine ratioOrdered By: Walter Becker on 08-04-2024 Urea nitrogen/Creatinine [Mass ratio] 21.1 mg/mg High 10-20 [facility] CBC-Complete Blood Cnt No Di ffon 08-04-2024 Erythrocyte distribution width (RBC) [Ratio] 13.0 % Normal 11.6-14.6 [facility] Comment on above: Order Comment: 215.2 Performed By: #### L [id number] #### [facility] [address] [place], [address] Hematocrit (Bld) [Volume fraction] 41.3 % Normal 40-54 [facility] Comment on above: Order Comment: 215.2 Performed By: #### L [id number] #### [facility] [address] [place], [address] Hemoglobin (Bld) [Mass/Vol] 12.9 g/dL Low 13.0-16. 5 [facility] Comment on above: Order Comment: 215.2 Performed By: #### L [id number] #### [facility] [address] [place], [address] MCH (RBC) [Entitic mass] 27.3 pg Normal 27.0-32.0 [facility] Comment on above: Order Comment: 215.2 Performed By: #### L [id number] #### [facility] [address] [place], [address] MCHC (RBC) [Mass/Vol] 31.2 g/dL Low 32-36 [facility] Comment on above: Order Comment: 215.2 Performed By: #### L [id number] #### [facility] [address] [place], [address] MCV (RBC) [Entitic vol] 87.3 fL Normal 80-94 [facility] Comment on above: Order Comment: 215.2 Performed By: #### L [id number] #### [facility] [address] [place], [address] Platelet mean volume (Bld) [Entitic vol] 9.3 fL Normal 6.2-12.0 [facility] Comment on above: Order Comment: 215.2 Performed By: #### L [id number] #### [facility] [address] [place], [address] Platelets (Bld) [#/Vol] 295 10*3/uL Normal 150-450 [facility] Comment on above: Order Comment: 215.2 Performed By: #### L [id number] #### [facility] [address] [place], [address] RBC (Bld) [#/Vol] 4.73 10*6/uL Normal 4.6-6.2 [facility] Comment on above: Order Comment: 215.2 Performed By: #### L [id number] #### [facility] [address] [place], [address] RDW SD 41.8 fl Normal 35.1-43.9 [facility] Comment on above: Order Comment: 215.2 Performed By: #### L [id number] #### [facility] [address] [place], [address] WBC (Bld) [#/Vol] 9.3 10*3/uL Normal 4.4-11.0 [facility] Comment on above: Order Comment: 215.2 Performed By: #### L [id number] #### [facility] [address] [place], [address] Carbon dioxide measurementOr dered By: Walter Becker on 08-04-2024 CO2 [Moles/Vol] 29.0 mmol/L 21.0-32.0 [facility] Chloride measurementOrdered By: Walter Becker on 08-04-2024 Chloride [Moles/Vol] 104 mmol/L 98-107 [facility] Comprehensive Metabolic Prof ilon 08-04-2024 Albumin [Mass/Vol] 3.5 g/dL Normal 3.2-5.0 [facility] Comment on above: Order Comment: 215.2 Performed By: #### L [id number] #### [facility] [address] [place], [address] Albumin/Globulin [Mass ratio] 1.0 {ratio} Normal 0.9-2.4 [facility] Comment on above: Order Comment: 215.2 Performed By: #### L [id number] #### [facility] [address] [place], [address] ALK P 125 U/L High 45-117 [facility] Comment on above: Order Comment: 215.2 Performed By: #### L [id number] #### [facility] [address] [place], [address] ALT [Catalytic activity/Vol] 19 U/L Normal 16-61 [facility] Comment on above: Order Comment: 215.2 Performed By: #### L [id number] #### [facility] [address] [place], [address] AST [Catalytic activity/Vol] 12 U/L Low 15-37 [facility] Comment on above: Order Comment: 215.2 Performed By: #### L [id number] #### [facility] [address] [place], [address] Bilirubin [Mass/Vol] 0.50 mg/dL Normal 0.20-1.00 [facility] Comment on above: Order Comment: 215.2 Result Comment: For patients on eltrombopag therapy, use of Dimension [place] TBIL is not recommended. Performed By: #### L [id number] #### [facility] [address] [place], [address] BUN/CRE 21.1 RATIO High 10-20 [facility] Comment on above: Order Comment: 215.2 Performed By: #### L [id number] #### [facility] [address] [place], [address] CA,Total 9.7 mg/dL Normal 8.5-10.1 [facility] Comment on above: Order Comment: 215.2 Performed By: #### L [id number] #### [facility] [address] [place], [address] Chloride [Moles/Vol] 104 mmol/L Normal 98-107 [facility] Comment on above: Order Comment: 215.2 Performed By: #### L [id number] #### [facility] [address] [place], [address] CO2 [Moles/Vol] 29.0 mmol/L Normal 21.0-32.0 [facility] Comment on above: Order Comment: 215.2 Performed By: #### L [id number] #### [facility] [address] [place], [address] Creatinine [Mass/Vol] 1.28 mg/dL Normal 0.70-1.30 [facility] Comment on above: Order Comment: 215.2 Result Comment: The validity of the calculated GFR GFRAA in patients over 70 years has not been determined. Clinical correlation is essential. Performed By: #### L [id number] #### [facility] [address] [place], [address] EST GFR - AA 70 mL/min Normal >60 [facility] Comment on above: Order Comment: 215.2 Result Comment: Afri can [place] GFR Calc Performed By: #### L [id number] #### [facility] [address] [place], [address] GAP 7 Normal 5-15 [facility] Comment on above: Order Comment: 215.2 Performed By: #### L [id number] #### [facility] [address] [place], [address] GFR/1.73 sq M.predicted among non-blacks MDRD (S/P/Bld) [Vol rate/Area] 58 mL/min/{1.73_m2} Low >60 [facility] Comment on above: Order Comment: 215.2 Result Comment: Non- GFR Calc Performed By: #### L [id number] #### [facility] [address] [place], [address] Globulin (S) [Mass/Vol] 3.5 g/dL Normal 2.2-4.2 [facility] Comment on above: Order Comment: 215.2 Performed By: #### L [id number] #### [facility] [address] [place], [address] Glucose [Mass/Vol] 128 mg/dL High 74-106 [facility] Comment on above: Order Comment: 215.2 Result Comment: Fast ing Glucose result greater than or equal to 126 mg/dL suggests DIABETES MELLITUS per A.D.A. criteria. Performed By: #### L [id number] #### [facility] [address] [place], [address] Potassium [Moles/Vol] 3.9 mmol/L Normal 3.5-5.1 [facility] Comment on above: Order Comment: 215.2 Performed By: #### L [id number] #### [facility] [address] [place], [address] Sodium [Moles/Vol] 140 mmol/L Normal 136-145 [facility] Comment on above: Order Comment: 215.2 Performed By: #### L [id number] #### [facility] [address] [place], [address] T PROT 7.0 g/dL Normal 6.4-8.2 [facility] Comment on above: Order Comment: 215.2 Performed By: #### L [id number] #### [facility] [address] [place], [address] Urea nitrogen [Mass/Vol] 27 mg/dL High 7-18 [facility] Comment on above: Order Comment: 215.2 Performed By: #### L [id number] #### [facility] [address] [place], [address] Epithelial cells.squamous LM Ql (Urine sed)Ordered By: Walter Becker on 08-04-2024 Epithelial cells.squamous LM.HPF (Urine sed) [#/Area] 0 /[HPF] 0-5 [facility] Erythrocyte distribution wid th (RBC) [Ratio]Ordered By: Walter Becker on 08-04-2024 Erythrocyte distribution width (RBC) [Entitic vol] 41.8 fL 35.1-43.9 [facility] Erythrocyte distribution wid th ratioOrdered By: Walter Becker on 08-04-2024 Erythrocyte distribution width (RBC) [Ratio] 13.0 % 11.6-14.6 [facility] Estimated glomerular filtrat ion rate (GFR) AmericanOrdered By: Walter Becker on 08-04-2024 Estimated GFR (MDRD) Amer 70 mL/min >60 [facility] Comment on above: GFR Calc Glomerular filtration rate ( GFR) estimationOrdered By: Walter Becker on 08-04-2024 Estimated GFR (MDRD) Non-Af Amer 58 mL/min Low >60 [facility] Comment on above: Non- GFR Calc Glucose Ql (U)Ordered By: Horner on 08-04-2024 Urine Glucose (UA) Normal mg/dl Normal [facility] Glucose measurementOrdered B y: Walter Becker on 08-04-2024 Glucose [Mass/Vol] 128 mg/dL High 74-106 [facility] Comment on above: Fasting Glucose resu lt greater than or equal to 126 mg/dL suggests DIABETES MELLITUS per A.D.A. criteria. Hematocrit Auto (Bld) [Volum e fraction]Ordered By: Walter Becker on 08-04-2024 Hematocrit (Bld) [Volume fraction] 41.3 % 40-54 [facility] Hemoglobin measurementOrdere d By: Walter Becker on 08-04-2024 Hemoglobin (Bld) [Mass/Vol] 12.9 g/dL Low 13.0-16. 5 [facility] Ketones Test strip Ql (U)Ord ered By: Walter Becker on 08-04-2024 Ketones Ql (U) Negative Negative [facility] - Chemistry and C hemistry - challengeOrdered By: Walter Becker on 08-04-2024 AST [Catalytic activity/Vol] 12 U/L Low 15-37 [facility] MCV (mean corpuscular volume ) determinationOrdered By: Walter Becker on 08-04-2024 MCV (RBC) [Entitic vol] 87.3 fL 80-94 [facility] Mean corpuscular hemoglobin (MCH) determinationOrdered By: Walter Becker on 08-04-2024 MCH (RBC) [Entitic mass] 27.3 pg 27.0-32.0 [facility] Mean corpuscular hemoglobin concentration (MCHC) determinationOrdered By: Walter Becker on 08-04-2024 MCHC (RBC) [Mass/Vol] 31.2 g/dL Low 32-36 [facility] Mean platelet volume determi nationOrdered By: Walter Becker on 08-04-2024 Platelet mean volume (Bld) [Entitic vol] 9.3 fL 6.2-12.0 [facility] Microscopic analysis of urin e for red blood cells (RBC)Ordered By: Walter Becker on 08-04-2024 Urine RBC 0 SEEN /hpf 0-5 [facility] Mucus LM Ql (Urine sed)Order ed By: Walter Becker on 08-04-2024 Mucus Ql (Urine sed) 0 SEEN /hpf [facility] Nitrite Test strip Ql (U)Ord ered By: Walter Becker on 08-04-2024 Nitrite Ql (U) Negative Negative [facility] Platelet countOrdered By: Horner on 08-04-2024 Platelets (Bld) [#/Vol] 295 10*3/uL 150-450 [facility] Potassium measurementOrdered By: Walter Becker on 08-04-2024 Potassium [Moles/Vol] 3.9 mmol/L 3.5-5.1 [facility] Protein Test strip Ql (U)Ord ered By: Walter Becker on 08-04-2024 Protein Ql (U) Negative Negative [facility] RBC Auto (Bld) [#/Vol]Ordere d By: Walter Becker on 08-04-2024 RBC (Bld) [#/Vol] 4.73 10*6/uL 4.6-6.2 [facility] Serum anion gap measurementO rdered By: Walter Becker on 08-04-2024 Anion gap [Moles/Vol] 7 mmol/L 5-15 [facility] Serum globulin measurementOr dered By: Walter Becker on 08-04-2024 Globulin (S) [Mass/Vol] 3.5 g/dL 2.2-4.2 [facility] Serum or plasma alanine davis otransferase (ALT) measurementOrdered By: Walter Becker on 08-04-2024 ALT [Catalytic activity/Vol] 19 U/L 16-61 [facility] Serum or plasma albumin antoine urement (mass/volume)Ordered By: Walter Becker on 08-04-2024 Albumin [Mass/Vol] 3.5 g/dL 3.2-5.0 [facility] Serum or plasma alkaline marilin sphatase measurementOrdered By: Walter Becker on 08-04-2024 ALP [Catalytic activity/Vol] 125 U/L High 45-117 [facility] Serum or plasma calcium antoine urement (mass/volume)Ordered By: Walter Becker on 08-04-2024 Calcium [Mass/Vol] 9.7 mg/dL 8.5-10.1 [facility] Serum or plasma creatinine m easurement (mass/volume)Ordered By: Walter Becker on 08-04-2024 Creatinine [Mass/Vol] 1.28 mg/dL 0.70-1.30 [facility] Comment on above: The validity of the calculated GFR & GFRAA in patients over 70 years has not been determined. Clinical correlation is essential. Serum or plasma urea nitroge n measurement (mass/volume)Ordered By: Walter Becker on 08-04-2024 Urea nitrogen [Mass/Vol] 27 mg/dL High 7-18 [facility] Sodium levelOrdered By: Walter Becker on 08-04-2024 Sodium [Moles/Vol] 140 mmol/L 136-145 [facility] Total proteinOrdered By: Crystal Becker on 08-04-2024 Protein [Mass/Vol] 7.0 g/dL 6.4-8.2 [facility] Urinalysis, Completeon 08-04 WBC 0-5 SEEN Normal 0-5 [facility] Comment on above: Order Comment: SCCAT HETER SPECIMEN Performed By: #### [id number] #### [facility] [address] [place], [address] BACTERIA 0 SEEN Normal None Seen [facility] Comment on above: Order Comment: SCCAT HETER SPECIMEN Performed By: #### [id number] #### [facility] [address] [place], [address] EPI,SQUAMOUS 0 SEEN Normal 0-5 [facility] Comment on above: Order Comment: SCCAT HETER SPECIMEN Performed By: #### [id number] #### [facility] [address] [place], [address] Mucus Ql (Urine sed) 0 SEEN Normal [facility] Comment on above: Order Comment: SCCAT HETER SPECIMEN Performed By: #### [id number] #### [facility] [address] [place], [address] RBC 0 SEEN Normal 0-5 [facility] Comment on above: Order Comment: SCCAT HETER SPECIMEN Performed By: #### [id number] #### [facility] [address] [place], [address] Urine blood detectionOrdered By: Walter Becker on 08-04-2024 Urine Occult Blood Negative Negative [facility] Urine clarityOrdered By: Crystal Becker on 08-04-2024 Clarity (U) Clear Clear [facility] Urine color determinationOrd ered By: Walter Becker on 08-04-2024 Color (U) Yellow Yellow [facility] Urine cultureOrdered By: Crystal Becker on 08-04-2024 Bacteria identified Cx Nom (U) Culture exhibits no growth. [facility] Urine leukocyte esterase det ection by dipstickOrdered By: Walter Becker on 08-04-2024 Leukocyte esterase Test strip Ql (U) Negative Negative [facility] Urine pHOrdered By: Walter floyd on 08-04-2024 pH (U) 6.0 [pH] 5.0 - 8.0 [facility] Urine sediment bacteria coun t by microscopy (number/high power field)Ordered By: Walter Becker on 08-04-2024 Bacteria LM.HPF (Urine sed) [#/Area] 0 /[HPF] None Seen [facility] Urine specific gravity measu rementOrdered By: Walter Becker on 08-04-2024 Specific gravity (U) [Rel density] 1.010 1.002-1.03 0 [facility] Urobilinogen Ql (U)Ordered B y: Walter Becker on 08-04-2024 Urine Urobilinogen Normal mg/dl Normal [facility] White blood cell (WBC) count Ordered By: Walter Becker on 08-04-2024 WBC (Bld) [#/Vol] 9.3 10*3/uL 4.4-11.0 [facility] White blood cell countOrdere d By: Walter Becker on 08-04-2024 Urine WBC 0-5 SEEN /hpf 0-5 [facility] Albumin to globulin ratioOrd ered By: Walter Becker on 07-27-2024 Albumin/Globulin [Mass ratio] 1.1 {ratio} 0.9-2.4 [facility] Bilirubin, totalOrdered By: Walter Becker on 07-27-2024 Bilirubin [Mass/Vol] 0.60 mg/dL 0.20-1.00 [facility] Comment on above: For patients on eltr ombopag therapy, use of Dimension [place] TBIL is not recommended. Blood urea nitrogen (BUN)/cr eatinine ratioOrdered By: Walter Becker on 07-27-2024 Urea nitrogen/Creatinine [Mass ratio] 20.0 mg/mg 10-20 [facility] CBC-Complete Blood Cnt No Di ffon 07-27-2024 Erythrocyte distribution width (RBC) [Ratio] 13.5 % Normal 11.6-14.6 [facility] Comment on above: Order Comment: 215.2 Performed By: #### L [id number], [id number], [id number] #### [facility] [address] [place], [place], [address] Hematocrit (Bld) [Volume fraction] 35.7 % Low 40-54 [facility] Comment on above: Order Comment: 215.2 Performed By: #### L [id number], [id number], [id number] #### [facility] [address] [place], [address] Hemoglobin (Bld) [Mass/Vol] 11.5 g/dL Low 13.0-16. 5 [facility] Comment on above: Order Comment: 215.2 Performed By: #### L [id number], [id number], [id number] #### [facility] [address] [place], [address] MCH (RBC) [Entitic mass] 28.2 pg Normal 27.0-32.0 [facility] Comment on above: Order Comment: 215.2 Performed By: #### L [id number], [id number], [id number] #### [facility] [address] [place], [address] MCHC (RBC) [Mass/Vol] 32.2 g/dL Normal 32-36 [facility] Comment on above: Order Comment: 215.2 Performed By: #### L [id number], [id number], [id number] #### [facility] [address] [place], [address] MCV (RBC) [Entitic vol] 87.5 fL Normal 80-94 [facility] Comment on above: Order Comment: 215.2 Performed By: #### L [id number], [id number], [id number] #### [facility] [address] [place], [address] Platelet mean volume (Bld) [Entitic vol] 9.6 fL Normal 6.2-12.0 [facility] Comment on above: Order Comment: 215.2 Performed By: #### L [id number], [id number], [id number] #### [facility] [address] [place], [address] Platelets (Bld) [#/Vol] 192 10*3/uL Normal 150-450 [facility] Comment on above: Order Comment: 215.2 Performed By: #### L [id number], [id number], [id number] #### [facility] [address] [place], [address] RBC (Bld) [#/Vol] 4.08 10*6/uL Low 4.6-6.2 [facility] Comment on above: Order Comment: 215.2 Performed By: #### L [id number], [id number], [id number] #### [facility] [address] [place], [address] RDW SD 43.1 fl Normal 35.1-43.9 [facility] Comment on above: Order Comment: 215.2 Performed By: #### L [id number], [id number], [id number] #### [facility] [address] [place], [address] WBC (Bld) [#/Vol] 7.2 10*3/uL Normal 4.4-11.0 [facility] Comment on above: Order Comment: 215.2 Performed By: #### L [id number], [id number], [id number] #### [facility] [address] [place], [address] Carbon dioxide measurementOr dered By: Walter Becker on 07-27-2024 CO2 [Moles/Vol] 29.0 mmol/L 21.0-32.0 [facility] Chloride measurementOrdered By: Walter Becker on 07-27-2024 Chloride [Moles/Vol] 105 mmol/L 98-107 [facility] Comprehensive Metabolic Prof ilon 07-27-2024 Albumin [Mass/Vol] 3.1 g/dL Low 3.2-5.0 [facility] Comment on above: Order Comment: 215.2 Performed By: #### L [id number], [id number], L100.0500 #### [facility] [address] [place], [address] Albumin/Globulin [Mass ratio] 1.1 {ratio} Normal 0.9-2.4 [facility] Comment on above: Order Comment: 215.2 Performed By: #### L [id number], [id number], [id number] #### [facility] [address] [place], [address] ALK P 124 U/L High 45-117 [facility] Comment on above: Order Comment: 215.2 Performed By: #### L [id number], [id number], [id number] #### [facility] [address] [place], [address] ALT [Catalytic activity/Vol] 20 U/L Normal 16-61 [facility] Comment on above: Order Comment: 215.2 Performed By: #### L [id number], [id number], [id number] #### [facility] [address] [place], [address] AST [Catalytic activity/Vol] 10 U/L Low 15-37 [facility] Comment on above: Order Comment: 215.2 Performed By: #### L [id number], [id number], [id number] #### [facility] [address] [place], [address] Bilirubin [Mass/Vol] 0.60 mg/dL Normal 0.20-1.00 [facility] Comment on above: Order Comment: 215.2 Result Comment: For patients on eltrombopag therapy, use of Dimension [place] TBIL is not recommended. Performed By: #### L [id number], [id number], [id number] #### [facility] [address] [place], [address] BUN/CRE 20.0 RATIO Normal 10-20 [facility] Comment on above: Order Comment: 215.2 Performed By: #### L [id number], [id number], [id number] #### [facility] [address] [place], [address] CA,Total 8.9 mg/dL Normal 8.5-10.1 [facility] Comment on above: Order Comment: 215.2 Performed By: #### L [id number], [id number], [id number] #### [facility] [address] [place], [address] Chloride [Moles/Vol] 105 mmol/L Normal 98-107 [facility] Comment on above: Order Comment: 215.2 Performed By: #### L [id number], [id number], [id number] #### [facility] [address] [place], [address] CO2 [Moles/Vol] 29.0 mmol/L Normal 21.0-32.0 [facility] Comment on above: Order Comment: 215.2 Performed By: #### L [id number], [id number], [id number] #### [facility] [address] [place], [address] Creatinine [Mass/Vol] 1.10 mg/dL Normal 0.70-1.30 [facility] Comment on above: Order Comment: 215.2 Result Comment: The validity of the calculated GFR GFRAA in patients over 70 years has not been determined. Clinical correlation is essential. Performed By: #### L [id number], [id number], [id number] #### [facility] [address] [place], [address] EST GFR - AA 84 mL/min Normal >60 [facility] Comment on above: Order Comment: 215.2 Result Comment: Afri can [place] GFR Calc Performed By: #### L [id number], [id number], [id number] #### [facility] [address] [place], [address] GAP 4 Low 5-15 [facility] Comment on above: Order Comment: 215.2 Performed By: #### L 500.4050, L501.9985, L100.0500 #### [facility] [address] [place], [address] GFR/1.73 sq M.predicted among non-blacks MDRD (S/P/Bld) [Vol rate/Area] 69 mL/min/{1.73_m2} Normal >60 [facility] Comment on above: Order Comment: 215.2 Result Comment: Non- GFR Calc Performed By: #### L 500.4050, L501.9985, L100.0500 #### [facility] [address] [place], [address] Globulin (S) [Mass/Vol] 2.9 g/dL Normal 2.2-4.2 [facility] Comment on above: Order Comment: 215.2 Performed By: #### L 500.4050, L501.9985, L100.0500 #### [facility] [address] [place], [address] Glucose [Mass/Vol] 127 mg/dL High 74-106 [facility] Comment on above: Order Comment: 215.2 Result Comment: Fast ing Glucose result greater than or equal to 126 mg/dL suggests DIABETES MELLITUS per A.D.A. criteria. Performed By: #### L 500.4050, L501.9985, L100.0500 #### [facility] [address] [place], [address] Potassium [Moles/Vol] 4.1 mmol/L Normal 3.5-5.1 [facility] Comment on above: Order Comment: 215.2 Performed By: #### L 500.4050, L501.9985, L100.0500 #### [facility] [address] [place], [address] Sodium [Moles/Vol] 137 mmol/L Normal 136-145 [facility] Comment on above: Order Comment: 215.2 Performed By: #### L 500.4050, L501.9985, L100.0500 #### [facility] [address] [place], [address] T PROT 6.0 g/dL Low 6.4-8.2 [facility] Comment on above: Order Comment: 215.2 Performed By: #### L 500.4050, L501.9985, L100.0500 #### [facility] [address] [place], [address] Urea nitrogen [Mass/Vol] 22 mg/dL High 7-18 [facility] Comment on above: Order Comment: 215.2 Performed By: #### L 500.4050, L501.9985, L100.0500 #### [facility] [address] [place], [address] Erythrocyte distribution wid th (RBC) [Ratio]Ordered By: Walter Becker on 07-27-2024 Erythrocyte distribution width (RBC) [Entitic vol] 43.1 fL 35.1-43.9 [facility] Erythrocyte distribution wid th ratioOrdered By: Walter Becker on 07-27-2024 Erythrocyte distribution width (RBC) [Ratio] 13.5 % 11.6-14.6 [facility] Estimated glomerular filtrat ion rate (GFR) AmericanOrdered By: Walter Becker on 07-27-2024 Estimated GFR (MDRD) Amer 84 mL/min >60 [facility] Comment on above: GFR Calc Glomerular filtration rate ( GFR) estimationOrdered By: Walter Becker on 07-27-2024 Estimated GFR (MDRD) Non-Af Amer 69 mL/min >60 [facility] Comment on above: Non- GFR Calc Glucose measurementOrdered B y: Walter Becker on 07-27-2024 Glucose [Mass/Vol] 127 mg/dL High 74-106 [facility] Comment on above: Fasting Glucose resu lt greater than or equal to 126 mg/dL suggests DIABETES MELLITUS per A.D.A. criteria. Hematocrit Auto (Bld) [Volum e fraction]Ordered By: Walter Becker on 07-27-2024 Hematocrit (Bld) [Volume fraction] 35.7 % Low 40-54 [facility] Hemoglobin measurementOrdere d By: Walter Becker on 07-27-2024 Hemoglobin (Bld) [Mass/Vol] 11.5 g/dL Low 13.0-16. 5 [facility] - Chemistry and C hemistry - challengeOrdered By: Walter Becker on 07-27-2024 AST [Catalytic activity/Vol] 10 U/L Low 15-37 [facility] MCV (mean corpuscular volume ) determinationOrdered By: Walter Becker on 07-27-2024 MCV (RBC) [Entitic vol] 87.5 fL 80-94 [facility] Mean corpuscular hemoglobin (MCH) determinationOrdered By: Walter Becker on 07-27-2024 MCH (RBC) [Entitic mass] 28.2 pg 27.0-32.0 [facility] Mean corpuscular hemoglobin concentration (MCHC) determinationOrdered By: Walter Becker on 07-27-2024 MCHC (RBC) [Mass/Vol] 32.2 g/dL 32-36 [facility] Mean platelet volume determi nationOrdered By: Walter Becker on 07-27-2024 Platelet mean volume (Bld) [Entitic vol] 9.6 fL 6.2-12.0 [facility] Platelet countOrdered By: Horner on 07-27-2024 Platelets (Bld) [#/Vol] 192 10*3/uL 150-450 [facility] Potassium measurementOrdered By: Walter Becker on 07-27-2024 Potassium [Moles/Vol] 4.1 mmol/L 3.5-5.1 [facility] RBC Auto (Bld) [#/Vol]Ordere d By: Walter Becker on 07-27-2024 RBC (Bld) [#/Vol] 4.08 10*6/uL Low 4.6-6.2 [facility] Serum anion gap measurementO rdered By: Walter Becker on 07-27-2024 Anion gap [Moles/Vol] 4 mmol/L Low 5-15 [facility] Serum globulin measurementOr dered By: Walter Becker on 07-27-2024 Globulin (S) [Mass/Vol] 2.9 g/dL 2.2-4.2 [facility] Serum or plasma alanine davis otransferase (ALT) measurementOrdered By: Walter Becker on 07-27-2024 ALT [Catalytic activity/Vol] 20 U/L 16-61 [facility] Serum or plasma albumin antoine urement (mass/volume)Ordered By: Walter Becker on 07-27-2024 Albumin [Mass/Vol] 3.1 g/dL Low 3.2-5.0 [facility] Serum or plasma alkaline marilin sphatase measurementOrdered By: Walter Becker on 07-27-2024 ALP [Catalytic activity/Vol] 124 U/L High 45-117 [facility] Serum or plasma calcium antoine urement (mass/volume)Ordered By: Walter Becker on 07-27-2024 Calcium [Mass/Vol] 8.9 mg/dL 8.5-10.1 [facility] Serum or plasma creatinine m easurement (mass/volume)Ordered By: Walter Becker on 07-27-2024 Creatinine [Mass/Vol] 1.10 mg/dL 0.70-1.30 [facility] Comment on above: The validity of the calculated GFR & GFRAA in patients over 70 years has not been determined. Clinical correlation is essential. Serum or plasma urea nitroge n measurement (mass/volume)Ordered By: Walter Becker on 07-27-2024 Urea nitrogen [Mass/Vol] 22 mg/dL High 7-18 [facility] Sodium levelOrdered By: Walter Becker on 07-27-2024 Sodium [Moles/Vol] 137 mmol/L 136-145 [facility] Total proteinOrdered By: Crystal Becker on 07-27-2024 Protein [Mass/Vol] 6.0 g/dL Low 6.4-8.2 [facility] White blood cell (WBC) count Ordered By: Walter Becker on 07-27-2024 WBC (Bld) [#/Vol] 7.2 10*3/uL 4.4-11.0 [facility] Albumin to globulin ratioOrd ered By: Walter Becker on 07-07-2024 Albumin/Globulin [Mass ratio] 1.0 {ratio} 0.9-2.4 [facility] Bilirubin, totalOrdered By: Walter Becker on 07-07-2024 Bilirubin [Mass/Vol] 0.40 mg/dL 0.20-1.00 [facility] Comment on above: For patients on eltr ombopag therapy, use of Dimension [place] TBIL is not recommended. Blood urea nitrogen (BUN)/cr eatinine ratioOrdered By: Walter Becker on 07-07-2024 Urea nitrogen/Creatinine [Mass ratio] 23.6 mg/mg High 10-20 [facility] CBC-Complete Blood Cnt No Di ffon 07-07-2024 Erythrocyte distribution width (RBC) [Ratio] 13.3 % Normal 11.6-14.6 [facility] Comment on above: Order Comment: 215.2 Performed By: #### L 300.3900 #### [facility] [address] [place], [address] Hematocrit (Bld) [Volume fraction] 38.1 % Low 40-54 [facility] Comment on above: Order Comment: 215.2 Performed By: #### L 300.3900 #### [facility] [address] [place], [address] Hemoglobin (Bld) [Mass/Vol] 12.3 g/dL Low 13.0-16. 5 [facility] Comment on above: Order Comment: 215.2 Performed By: #### L 300.3900 #### [facility] [address] [place], [address] MCH (RBC) [Entitic mass] 28.3 pg Normal 27.0-32.0 [facility] Comment on above: Order Comment: 215.2 Performed By: #### L 300.3900 #### [facility] [address] [place], [address] MCHC (RBC) [Mass/Vol] 32.3 g/dL Normal 32-36 [facility] Comment on above: Order Comment: 215.2 Performed By: #### L 300.3900 #### [facility] [address] [place], [address] MCV (RBC) [Entitic vol] 87.6 fL Normal 80-94 [facility] Comment on above: Order Comment: 215.2 Performed By: #### L 300.3900 #### [facility] [address] [place], [address] Platelet mean volume (Bld) [Entitic vol] 9.1 fL Normal 6.2-12.0 [facility] Comment on above: Order Comment: 215.2 Performed By: #### L 300.3900 #### [facility] [address] [place], [address] Platelets (Bld) [#/Vol] 211 10*3/uL Normal 150-450 [facility] Comment on above: Order Comment: 215.2 Performed By: #### L 300.3900 #### [facility] [address] [place], [address] RBC (Bld) [#/Vol] 4.35 10*6/uL Low 4.6-6.2 [facility] Comment on above: Order Comment: 215.2 Performed By: #### L 300.3900 #### [facility] [address] [place], [address] RDW SD 42.5 fl Normal 35.1-43.9 [facility] Comment on above: Order Comment: 215.2 Performed By: #### L 300.3900 #### [facility] [address] [place], [address] WBC (Bld) [#/Vol] 7.6 10*3/uL Normal 4.4-11.0 [facility] Comment on above: Order Comment: 215.2 Performed By: #### L 300.3900 #### [facility] [address] [place], [address] Carbon dioxide measurementOr dered By: Walter Becker on 07-07-2024 CO2 [Moles/Vol] 32.0 mmol/L 21.0-32.0 [facility] Chloride measurementOrdered By: Walter Becker on 07-07-2024 Chloride [Moles/Vol] 107 mmol/L 98-107 [facility] Comprehensive Metabolic Prof ilon 07-07-2024 Albumin [Mass/Vol] 2.9 g/dL Low 3.2-5.0 [facility] Comment on above: Order Comment: 215.2 Performed By: #### L 300.3900 #### [facility] [address] [place], [address] Albumin/Globulin [Mass ratio] 1.0 {ratio} Normal 0.9-2.4 [facility] Comment on above: Order Comment: 215.2 Performed By: #### L 300.3900 #### [facility] [address] [place], [address] ALK P 121 U/L High 45-117 [facility] Comment on above: Order Comment: 215.2 Performed By: #### L 300.3900 #### [facility] [address] [place], [address] ALT [Catalytic activity/Vol] 20 U/L Normal 16-61 [facility] Comment on above: Order Comment: 215.2 Performed By: #### L 300.3900 #### [facility] [address] [place], [address] AST [Catalytic activity/Vol] 10 U/L Low 15-37 [facility] Comment on above: Order Comment: 215.2 Performed By: #### L 300.3900 #### [facility] [address] [place], [address] Bilirubin [Mass/Vol] 0.40 mg/dL Normal 0.20-1.00 [facility] Comment on above: Order Comment: 215.2 Result Comment: For patients on eltrombopag therapy, use of Dimension [place] TBIL is not recommended. Performed By: #### L 300.3900 #### [facility] [address] [place], [address] BUN/CRE 23.6 RATIO High 10-20 [facility] Comment on above: Order Comment: 215.2 Performed By: #### L 300.3900 #### [facility] [address] [place], [address] CA,Total 9.1 mg/dL Normal 8.5-10.1 [facility] Comment on above: Order Comment: 215.2 Performed By: #### L 300.3900 #### [facility] [address] [place], [address] Chloride [Moles/Vol] 107 mmol/L Normal 98-107 [facility] Comment on above: Order Comment: 215.2 Performed By: #### L 300.3900 #### [facility] [address] [place], [address] CO2 [Moles/Vol] 32.0 mmol/L Normal 21.0-32.0 [facility] Comment on above: Order Comment: 215.2 Performed By: #### L 300.3900 #### [facility] [address] [place], [address] Creatinine [Mass/Vol] 1.06 mg/dL Normal 0.70-1.30 [facility] Comment on above: Order Comment: 215.2 Result Comment: The validity of the calculated GFR GFRAA in patients over 70 years has not been determined. Clinical correlation is essential. Performed By: #### L 300.3900 #### [facility] [address] [place], [address] EST GFR - AA 87 mL/min Normal >60 [facility] Comment on above: Order Comment: 215.2 Result Comment: Afri can [place] GFR Calc Performed By: #### L 300.3900 #### [facility] [address] [place], [address] GAP 3 Low 5-15 [facility] Comment on above: Order Comment: 215.2 Performed By: #### L 300.3900 #### [facility] [address] [place], [address] GFR/1.73 sq M.predicted among non-blacks MDRD (S/P/Bld) [Vol rate/Area] 72 mL/min/{1.73_m2} Normal >60 [facility] Comment on above: Order Comment: 215.2 Result Comment: Non- GFR Calc Performed By: #### L 300.3900 #### [facility] [address] [place], [address] Globulin (S) [Mass/Vol] 3.0 g/dL Normal 2.2-4.2 [facility] Comment on above: Order Comment: 215.2 Performed By: #### L 300.3900 #### [facility] [address] [place], [address] Glucose [Mass/Vol] 130 mg/dL High 74-106 [facility] Comment on above: Order Comment: 215.2 Result Comment: Fast ing Glucose result greater than or equal to 126 mg/dL suggests DIABETES MELLITUS per A.D.A. criteria. Performed By: #### L 300.3900 #### [facility] [address] [place], [address] Potassium [Moles/Vol] 3.9 mmol/L Normal 3.5-5.1 [facility] Comment on above: Order Comment: 215.2 Performed By: #### L 300.3900 #### [facility] [address] [place], [address] Sodium [Moles/Vol] 141 mmol/L Normal 136-145 [facility] Comment on above: Order Comment: 215.2 Performed By: #### L 300.3900 #### [facility] [address] [place], [address] T PROT 5.9 g/dL Low 6.4-8.2 [facility] Comment on above: Order Comment: 215.2 Performed By: #### L 300.3900 #### [facility] [address] [place], [address] Urea nitrogen [Mass/Vol] 25 mg/dL High 7-18 [facility] Comment on above: Order Comment: 215.2 Performed By: #### L 300.3900 #### [facility] [address] [place], [address] Erythrocyte distribution wid th (RBC) [Ratio]Ordered By: Walter Becker on 07-07-2024 Erythrocyte distribution width (RBC) [Entitic vol] 42.5 fL 35.1-43.9 [facility] Erythrocyte distribution wid th ratioOrdered By: Walter Becker on 07-07-2024 Erythrocyte distribution width (RBC) [Ratio] 13.3 % 11.6-14.6 [facility] Estimated glomerular filtrat ion rate (GFR) AmericanOrdered By: Walter Becker on 07-07-2024 Estimated GFR (MDRD) Amer 87 mL/min >60 [facility] Comment on above: GFR Calc Glomerular filtration rate ( GFR) estimationOrdered By: Walter Becker on 07-07-2024 Estimated GFR (MDRD) Non-Af Amer 72 mL/min >60 [facility] Comment on above: Non- GFR Calc Glucose measurementOrdered B y: Walter Becker on 07-07-2024 Glucose [Mass/Vol] 130 mg/dL High 74-106 [facility] Comment on above: Fasting Glucose resu lt greater than or equal to 126 mg/dL suggests DIABETES MELLITUS per A.D.A. criteria. Hematocrit Auto (Bld) [Volum e fraction]Ordered By: Walter Becker on 07-07-2024 Hematocrit (Bld) [Volume fraction] 38.1 % Low 40-54 [facility] Hemoglobin A1con 07-07-2024 HbA1c (Bld) [Mass fraction] 6.4 % High 3.8-5.6 [facility] Comment on above: Order Comment: 215.2 Result Comment: Norm al < 5.7 % Prediabetic 5.7 - 6.4 % Diabetic >or= 6.5 % Please note range changes. Performed By: #### L [id number] #### [facility] [address] [place] [address], [address] Hemoglobin A1c percentageOrd ered By: Walter Becker on 07-07-2024 HbA1c (Bld) [Mass fraction] 6.4 % High 3.8-5.6 [facility] Comment on above: Normal < 5.7 % Predi abetic 5.7 - 6.4 % Diabetic >or= 6.5 % Please note range changes. Hemoglobin measurementOrdere d By: Walter Becker on 07-07-2024 Hemoglobin (Bld) [Mass/Vol] 12.3 g/dL Low 13.0-16. 5 [facility] - Chemistry and C hemistry - challengeOrdered By: Waletr Becker on 07-07-2024 AST [Catalytic activity/Vol] 10 U/L Low 15-37 [facility] MCV (mean corpuscular volume ) determinationOrdered By: Walter Becker on 07-07-2024 MCV (RBC) [Entitic vol] 87.6 fL 80-94 [facility] Mean corpuscular hemoglobin (MCH) determinationOrdered By: Walter Becker on 07-07-2024 MCH (RBC) [Entitic mass] 28.3 pg 27.0-32.0 [facility] Mean corpuscular hemoglobin concentration (MCHC) determinationOrdered By: Walter Becker on 07-07-2024 MCHC (RBC) [Mass/Vol] 32.3 g/dL 32-36 [facility] Mean platelet volume determi nationOrdered By: Walter Becker on 07-07-2024 Platelet mean volume (Bld) [Entitic vol] 9.1 fL 6.2-12.0 [facility] Platelet countOrdered By: Horner on 07-07-2024 Platelets (Bld) [#/Vol] 211 10*3/uL 150-450 [facility] Potassium measurementOrdered By: Walter Becker on 07-07-2024 Potassium [Moles/Vol] 3.9 mmol/L 3.5-5.1 [facility] RBC Auto (Bld) [#/Vol]Ordere d By: Walter Becker on 07-07-2024 RBC (Bld) [#/Vol] 4.35 10*6/uL Low 4.6-6.2 [facility] Serum anion gap measurementO rdered By: Walter Becker on 07-07-2024 Anion gap [Moles/Vol] 3 mmol/L Low 5-15 [facility] Serum globulin measurementOr dered By: Walter Becker on 07-07-2024 Globulin (S) [Mass/Vol] 3.0 g/dL 2.2-4.2 [facility] Serum or plasma alanine davis otransferase (ALT) measurementOrdered By: Walter Becker on 07-07-2024 ALT [Catalytic activity/Vol] 20 U/L 16-61 [facility] Serum or plasma albumin antoine urement (mass/volume)Ordered By: Walter Becker on 07-07-2024 Albumin [Mass/Vol] 2.9 g/dL Low 3.2-5.0 [facility] Serum or plasma alkaline marilin sphatase measurementOrdered By: Walter Becker on 07-07-2024 ALP [Catalytic activity/Vol] 121 U/L High 45-117 [facility] Serum or plasma calcium antoine urement (mass/volume)Ordered By: Walter Becker on 07-07-2024 Calcium [Mass/Vol] 9.1 mg/dL 8.5-10.1 [facility] Serum or plasma creatinine m easurement (mass/volume)Ordered By: Walter Becker on 07-07-2024 Creatinine [Mass/Vol] 1.06 mg/dL 0.70-1.30 [facility] Comment on above: The validity of the calculated GFR & GFRAA in patients over 70 years has not been determined. Clinical correlation is essential. Serum or plasma urea nitroge n measurement (mass/volume)Ordered By: Walter Becker on 07-07-2024 Urea nitrogen [Mass/Vol] 25 mg/dL High -18 [facility] Sodium levelOrdered By: Walter Becker on 07-07-2024 Sodium [Moles/Vol] 141 mmol/L 136-145 [facility] Total proteinOrdered By: Crystal Becker on 07-07-2024 Protein [Mass/Vol] 5.9 g/dL Low 6.4-8.2 [facility] White blood cell (WBC) count Ordered By: Walter Becker on 07-07-2024 WBC (Bld) [#/Vol] 7.6 10*3/uL 4.4-11.0 [facility] Vitamin D,25 Hydroxyon 07-02 Vitamin D 25-OH 58.5 ng/mL Normal [facility] Comment on above: Order Comment: 215.2 Result Comment: Laure min D 25(OH) Status Range Deficiency <20 ng/mL (50nmol/L) Insufficiency 20 - 30 ng/mL (50 - 75 nmol/L) Sufficiency 30 - 100 ng/mL (75 - 250 nmol/L) Toxicity >100 ng/mL (>250 nmol/L) Performed By: #### L 506.1000 #### [facility] [place], [place], [id number] DOrdered By: Danny Becker on 07-01-2024 Vitamin D 25-Hydroxy 58.5 ng/mL [facility] Comment on above: Vitamin D 25(OH) Sta tus Range Deficiency <20 ng/mL (50nmol/L) Insufficiency 20 - 30 ng/mL (50 - 75 nmol/L) Sufficiency 30 - 100 ng/mL (75 - 250 nmol/L) Toxicity >100 ng/mL (>250 nmol/L) Bedside Glucoseon 06-01-2024 FINGERSTICK GLU 183 mg/dL High 74-106 [facility] Comment on above: Result Comment: JAZ WOODROSETTE OF PATIENT CARE PER NURSING PROTOCOL Performed By: #### L 500.4050, L501.9985, L100.0500 #### [facility] [address] [place], [place], [address] Fluor Guidance for Spine Inj on 06-01-2024 Fluor Guidance for Spine Inj [facility] Imaging Services [address] [place], [place] [id number] Fluor Guidance for Spine Inj MR#: [id number] Acct: [id number] Name: RICHARD ROY Rep #: [id number] : 1945 M 78 From: Ravindra hogue MD PCP: Dr. Luis Caldera MD Status: [facility] Study: Fluor Guidance for Spine Inj Date of Exam: Exam# [id number] Ordering Dr: Kee Merritt MD [id number] PROCEDURE: Caudal block. DATE OF EXAMINATION: June 01, 2024. INDICATION: Male, 78 years old. Chronic low back pain. FLUOROSCOPY TIME (if supplied): (2.6 seconds) minutes/seconds. 0.72 mGy. One image was submitted. RAD/Fluor Guidance for Spine Inj IMPRESSION: Intraoperative imaging provided for caudal block. Electronically Signed: Ravindra Sierra MD at 12:53 EST , CC: Dr. Luis Caldera MD; Dr. Kee Merritt MD Cost Manager: Signed Normal [facility] Operative Reporton 4 Operative Report [facility] Medical Records Department [address] [place] [address] Operative Report 06/01/24 1141 MR#: [id number] Acct: [id number] Name: RICHARD ROY Rep #: [id number] : 1945 78 From: Kee Merritt MD PCP: Dr. Luis Caldera MD Status:DEP [facility] Location: [facility] Operative Report (Standard) Operative Information Surgery/Procedure Performed: Diagnostic/therapeuti c caudal epidural steroid injection Surgeon: Kee Merritt Date of Procedure: 06/01/24 Procedure Start Time: : Procedure Stop Time: : Pre-Operative Diagnosis: Lumbosacral radiculopathy, lumbosacral degenerative disc disease, lumbosacral spinal stenosis Post-Operative Diagnosis: Lumbosacral radiculopathy, lumbosacral degenerative disc disease, lumbosacral spinal stenosis Select all DRAINS/GRAFTS/IMPLANT S that apply: None Type of Anesthesia: Local Estimated Blood Loss: < 1 cc Specimen collected: No Description of surgery: BLOOD LOSS: Minimal. COMPLICATIONS: None. DESCRIPTION OF PROCEDURE: History and physical of today was reviewed. Risks and benefits of the procedure were explained. The patient understood and agreed to proceed. Informed consent was obtained. IV inserted per routine protocol. The patient was taken to the operating room and placed in the prone position with a pillow positioned underneath the abdomen. The lower back and tailbone area was prepped and draped in a sterile fashion using iodine x3. Under fluoroscopy guidance on a lateral view, the caudal space was identified. The skin and subcutaneous tissue was anesthetized with approximately 3 mL of 1% lidocaine using a 25-gauge regular needle. Under direct visualization with fluoroscopy, using a 22-gauge 3-1/2-inch spinal needle, the needle was advanced via the skin through the sacral hiatus. The tip of the needle was passed through the sacrococcygeal ligament and advanced to approximately S4 area. After negative aspiration of blood or CSF, a total of 3 mL of contrast was injected to confirm correct placement of the needle as well as cephalad spread. The spread was followed to approximately L5 area. After confirmation on AP as well as lateral view and repeated negative aspiration, a total of 15 mL of preservative-free 0.125% Marcaine with 80 mg of Depo-Medrol was injected easily. The needle was then removed intact. The patient experienced no sign or symptoms of intrathecal or intravascular injection. The patient experienced no paresthesia. The procedure was completed without any apparent difficulty or any complications. The patient appeared to tolerate it well. ASSESSMENT AND PLAN: This is a 78-year-old male with lumbosacral radiculopathy, lumbosacral degenerative disc disease, lumbosacral spinal stenosis, status post diagnostic/therapeuti c caudal epidural steroid injection, patient will continue his current medications, patient will follow-up approximately 2 weeks for reevaluation. 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 Luis Caldera MD; Dr. Kee Merritt MD Signed Normal [facility] CBC-Complete Blood Cnt No Di ffon 04-14-2024 Erythrocyte distribution width (RBC) [Ratio] 14.6 % Normal 11.6-14.6 [facility] Comment on above: Order Comment: 215.2 Performed By: #### L 500.4050, L501.9985, L100.0500 #### [facility] [address] [place], [address] Hematocrit (Bld) [Volume fraction] 39.3 % Low 40-54 [facility] Comment on above: Order Comment: 215.2 Performed By: #### L 500.4050, L501.9985, L100.0500 #### [facility] [address] [place], [address] Hemoglobin (Bld) [Mass/Vol] 12.3 g/dL Low 13.0-16. 5 [facility] Comment on above: Order Comment: 215.2 Performed By: #### L 500.4050, L501.9985, L100.0500 #### [facility] [address] [place], [address] MCH (RBC) [Entitic mass] 27.3 pg Normal 27.0-32.0 [facility] Comment on above: Order Comment: 215.2 Performed By: #### L 500.4050, L501.9985, L100.0500 #### [facility] [address] [place], [address] MCHC (RBC) [Mass/Vol] 31.3 g/dL Low 32-36 [facility] Comment on above: Order Comment: 215.2 Performed By: #### L 500.4050, L501.9985, L100.0500 #### [facility] [address] [place], [address] MCV (RBC) [Entitic vol] 87.3 fL Normal 80-94 [facility] Comment on above: Order Comment: 215.2 Performed By: #### L 500.4050, L501.9985, L100.0500 #### [facility] [address] [place], [address] Platelet mean volume (Bld) [Entitic vol] 9.6 fL Normal 6.2-12.0 [facility] Comment on above: Order Comment: 215.2 Performed By: #### L 500.4050, L501.9985, L100.0500 #### [facility] [address] [place], [address] Platelets (Bld) [#/Vol] 224 10*3/uL Normal 150-450 [facility] Comment on above: Order Comment: 215.2 Performed By: #### L 500.4050, L501.9985, L100.0500 #### [facility] [address] [place], [address] RBC (Bld) [#/Vol] 4.50 10*6/uL Low 4.6-6.2 [facility] Comment on above: Order Comment: 215.2 Performed By: #### L 500.4050, L501.9985, L100.0500 #### [facility] [address] [place], [address] RDW SD 46.6 fl High 35.1-43.9 [facility] Comment on above: Order Comment: 215.2 Performed By: #### L 500.4050, L501.9985, L100.0500 #### [facility] [address] [place], [address] WBC (Bld) [#/Vol] 8.5 10*3/uL Normal 4.4-11.0 [facility] Comment on above: Order Comment: 215.2 Performed By: #### L 500.4050, L501.9985, L100.0500 #### [facility] [address] [place], [address] Comprehensive Metabolic Prof ilon 04-14-2024 Albumin [Mass/Vol] 3.1 g/dL Low 3.2-5.0 [facility] Comment on above: Order Comment: 215.2 Performed By: #### L 500.4050, L501.9985, L100.0500 #### [facility] [address] [place], [address] Albumin/Globulin [Mass ratio] 1.0 {ratio} Normal 0.9-2.4 [facility] Comment on above: Order Comment: 215.2 Performed By: #### L 500.4050, L501.9985, L100.0500 #### [facility] [address] [place], [address] ALK P 115 U/L Normal 45-117 [facility] Comment on above: Order Comment: 215.2 Performed By: #### L 500.4050, L501.9985, L100.0500 #### [facility] [address] [place], [address] ALT [Catalytic activity/Vol] 17 U/L Normal 16-61 [facility] Comment on above: Order Comment: 215.2 Performed By: #### L 500.4050, L501.9985, L100.0500 #### [facility] [address] [place], [address] AST [Catalytic activity/Vol] 5 U/L Low 15-37 [facility] Comment on above: Order Comment: 215.2 Performed By: #### L 500.4050, L501.9985, L100.0500 #### [facility] [address] [place], [address] Bilirubin [Mass/Vol] 0.60 mg/dL Normal 0.20-1.00 [facility] Comment on above: Order Comment: 215.2 Result Comment: For patients on eltrombopag therapy, use of Dimension [place] TBIL is not recommended. Performed By: #### L 500.4050, L501.9985, L100.0500 #### [facility] [address] [place], [address] BUN/CRE 21.2 RATIO High 10-20 [facility] Comment on above: Order Comment: 215.2 Performed By: #### L 500.4050, L501.9985, L100.0500 #### [facility] [address] [place], [address] CA,Total 9.6 mg/dL Normal 8.5-10.1 [facility] Comment on above: Order Comment: 215.2 Performed By: #### L 500.4050, L501.9985, L100.0500 #### [facility] [address] [place], [address] Chloride [Moles/Vol] 108 mmol/L High 98-107 [facility] Comment on above: Order Comment: 215.2 Performed By: #### L 500.4050, L501.9985, L100.0500 #### [facility] [address] [place], [address] CO2 [Moles/Vol] 29.0 mmol/L Normal 21.0-32.0 [facility] Comment on above: Order Comment: 215.2 Performed By: #### L 500.4050, L501.9985, L100.0500 #### [facility] [address] [place], [address] Creatinine [Mass/Vol] 1.13 mg/dL Normal 0.70-1.30 [facility] Comment on above: Order Comment: 215.2 Result Comment: The validity of the calculated GFR GFRAA in patients over 70 years has not been determined. Clinical correlation is essential. Performed By: #### L 500.4050, L501.9985, L100.0500 #### [facility] [address] [place], [address] EST GFR - AA 81 mL/min Normal >60 [facility] Comment on above: Order Comment: 215.2 Result Comment: Afri can [place] GFR Calc Performed By: #### L 500.4050, L501.9985, L100.0500 #### [facility] [address] [place], [address] GAP 4 Low 5-15 [facility] Comment on above: Order Comment: 215.2 Performed By: #### L 500.4050, L501.9985, L100.0500 #### [facility] [address] [place], [address] GFR/1.73 sq M.predicted among non-blacks MDRD (S/P/Bld) [Vol rate/Area] 67 mL/min/{1.73_m2} Normal >60 [facility] Comment on above: Order Comment: 215.2 Result Comment: Non- GFR Calc Performed By: #### L 500.4050, L501.9985, L100.0500 #### [facility] [address] [place], [address] Globulin (S) [Mass/Vol] 3.0 g/dL Normal 2.2-4.2 [facility] Comment on above: Order Comment: 215.2 Performed By: #### L 500.4050, L501.9985, L100.0500 #### [facility] [address] [place], [address] Glucose [Mass/Vol] 128 mg/dL High 74-106 [facility] Comment on above: Order Comment: 215.2 Result Comment: Fast ing Glucose result greater than or equal to 126 mg/dL suggests DIABETES MELLITUS per A.D.A. criteria. Performed By: #### L 500.4050, L501.9985, L100.0500 #### [facility] [address] [place], [address] Potassium [Moles/Vol] 4.2 mmol/L Normal 3.5-5.1 [facility] Comment on above: Order Comment: 215.2 Performed By: #### L 500.4050, L501.9985, L100.0500 #### [facility] [address] [place], [address] Sodium [Moles/Vol] 141 mmol/L Normal 136-145 [facility] Comment on above: Order Comment: 215.2 Performed By: #### L 500.4050, L501.9985, L100.0500 #### [facility] [address] [place], [address] T PROT 6.1 g/dL Low 6.4-8.2 [facility] Comment on above: Order Comment: 215.2 Performed By: #### L 500.4050, L501.9985, L100.0500 #### [facility] [address] [place], [address] Urea nitrogen [Mass/Vol] 24 mg/dL High 7-18 [facility] Comment on above: Order Comment: 215.2 Performed By: #### L 500.4050, L501.9985, L100.0500 #### [facility] [address] [place], [address] Hemoglobin A1con 04-14-2024 HbA1c (Bld) [Mass fraction] 6.5 % High 3.8-5.6 [facility] Comment on above: Order Comment: 215.2 Result Comment: Norm al < 5.7 % Prediabetic 5.7 - 6.4 % Diabetic >or= 6.5 % Please note range changes. Performed By: #### L 500.4050, L501.9985, L100.0500 #### [facility] [address] [place], [address] Urine Cultureon 04-11-2024 URC Culture exhibits no growth. Normal [facility] Comment on above: Performed By: #### L 500.4050, L501.9985, L100.0500 #### [facility] [address] [place], [address] CBC-Complete Blood Cnt No Di ffon 04-10-2024 Erythrocyte distribution width (RBC) [Ratio] 14.5 % Normal 11.6-14.6 [facility] Comment on above: Order Comment: 215.2 Performed By: #### L 500.4050, L501.9985, L100.0500 #### [facility] [address] [place], [address] Hematocrit (Bld) [Volume fraction] 41.3 % Normal 40-54 [facility] Comment on above: Order Comment: 215.2 Performed By: #### L 500.4050, L501.9985, L100.0500 #### [facility] [address] [place], [address] Hemoglobin (Bld) [Mass/Vol] 13.1 g/dL Normal 13.0-16. 5 [facility] Comment on above: Order Comment: 215.2 Performed By: #### L 500.4050, L501.9985, L100.0500 #### [facility] [address] [place], [address] MCH (RBC) [Entitic mass] 27.3 pg Normal 27.0-32.0 [facility] Comment on above: Order Comment: 215.2 Performed By: #### L 500.4050, L501.9985, L100.0500 #### [facility] [address] [place], [address] MCHC (RBC) [Mass/Vol] 31.7 g/dL Low 32-36 [facility] Comment on above: Order Comment: 215.2 Performed By: #### L 500.4050, L501.9985, L100.0500 #### [facility] [address] [place], [address] MCV (RBC) [Entitic vol] 86.0 fL Normal 80-94 [facility] Comment on above: Order Comment: 215.2 Performed By: #### L 500.4050, L501.9985, L100.0500 #### [facility] [address] [place], [address] Platelet mean volume (Bld) [Entitic vol] 9.4 fL Normal 6.2-12.0 [facility] Comment on above: Order Comment: 215.2 Performed By: #### L 500.4050, L501.9985, L100.0500 #### [facility] [address] [place], [address] Platelets (Bld) [#/Vol] 256 10*3/uL Normal 150-450 [facility] Comment on above: Order Comment: 215.2 Performed By: #### L 500.4050, L501.9985, L100.0500 #### [facility] [address] [place], [address] RBC (Bld) [#/Vol] 4.80 10*6/uL Normal 4.6-6.2 [facility] Comment on above: Order Comment: 215.2 Performed By: #### L 500.4050, L501.9985, L100.0500 #### [facility] [address] [place], [address] RDW SD 45.0 fl High 35.1-43.9 [facility] Comment on above: Order Comment: 215.2 Performed By: #### L 500.4050, L501.9985, L100.0500 #### [facility] [address] [place], [address] WBC (Bld) [#/Vol] 10.8 10*3/uL Normal 4.4-11.0 [facility] Comment on above: Order Comment: 215.2 Performed By: #### L 500.4050, L501.9985, L100.0500 #### [facility] [address] [place], [address] Urinalysis, Completeon 04-10 BACTERIA 0 SEEN Normal None Seen [facility] Comment on above: Order Comment: 215.2 Performed By: #### L 500.4050, L501.9985, L100.0500 #### [facility] [address] [place], [address] EPI,SQUAMOUS 0 SEEN Normal 0-5 [facility] Comment on above: Order Comment: 215.2 Performed By: #### L 500.4050, L501.9985, L100.0500 #### [facility] [address] [place], [address] Mucus Ql (Urine sed) 0 SEEN Normal [facility] Comment on above: Order Comment: 215.2 Performed By: #### L 500.4050, L501.9985, L100.0500 #### [facility] [address] [place], [address] RBC 0 SEEN Normal 0-5 [facility] Comment on above: Order Comment: 215.2 Performed By: #### L 500.4050, L501.9985, L100.0500 #### [facility] [address] [place], [address] WBC 0 SEEN Normal 0-5 [facility] Comment on above: Order Comment: 215.2 Performed By: #### L 500.4050, L501.9985, L100.0500 #### [facility] [address] [place], [address] CBC-Complete Blood Cnt No Di ffon 04-09-2024 Erythrocyte distribution width (RBC) [Ratio] 14.6 % Normal 11.6-14.6 [facility] Comment on above: Order Comment: 215.2 Performed By: #### L 300.3900 #### [facility] [address] [place], [address] Hematocrit (Bld) [Volume fraction] 39.6 % Low 40-54 [facility] Comment on above: Order Comment: 215.2 Performed By: #### L 300.3900 #### [facility] [address] [place], [address] Hemoglobin (Bld) [Mass/Vol] 12.4 g/dL Low 13.0-16. 5 [facility] Comment on above: Order Comment: 215.2 Performed By: #### L 300.3900 #### [facility] [address] [place], [address] MCH (RBC) [Entitic mass] 27.0 pg Normal 27.0-32.0 [facility] Comment on above: Order Comment: 215.2 Performed By: #### L 300.3900 #### [facility] [address] [place], [address] MCHC (RBC) [Mass/Vol] 31.3 g/dL Low 32-36 [facility] Comment on above: Order Comment: 215.2 Performed By: #### L 300.3900 #### [facility] [address] [place], [address] MCV (RBC) [Entitic vol] 86.3 fL Normal 80-94 [facility] Comment on above: Order Comment: 215.2 Performed By: #### L 300.3900 #### [facility] [address] [place], [address] Platelet mean volume (Bld) [Entitic vol] 9.4 fL Normal 6.2-12.0 [facility] Comment on above: Order Comment: 215.2 Performed By: #### L 300.3900 #### [facility] [address] [place], [address] Platelets (Bld) [#/Vol] 223 10*3/uL Normal 150-450 [facility] Comment on above: Order Comment: 215.2 Performed By: #### L 300.3900 #### [facility] [address] [place], [address] RBC (Bld) [#/Vol] 4.59 10*6/uL Low 4.6-6.2 [facility] Comment on above: Order Comment: 215.2 Performed By: #### L 300.3900 #### [facility] [address] [place], [address] RDW SD 45.5 fl High 35.1-43.9 [facility] Comment on above: Order Comment: 215.2 Performed By: #### L 300.3900 #### [facility] [address] [place], [address] WBC (Bld) [#/Vol] 11.9 10*3/uL High 4.4-11.0 [facility] Comment on above: Order Comment: 215.2 Performed By: #### L 300.3900 #### [facility] [address] [place], [address] CBC W/Diff, Automatedon 09-2 -2023 Absolute Lymph 2.54 X10 3/uL Normal 0.83-4.51 [facility] Comment on above: Performed By: #### L 300.3900 #### [facility] [address] [place], [address] Absolute Neut 7.3 X10 3/uL Normal 2.0-7.7 [facility] Comment on above: Performed By: #### L 300.3900 #### [facility] [address] [place], [address] Basophils/100 WBC (Bld) 0.3 % Normal 0-1 [facility] Comment on above: Performed By: #### L 300.3900 #### [facility] [address] [place], [address] Eosinophils/100 WBC (Bld) 3.7 % Normal 0-5 [facility] Comment on above: Performed By: #### L 300.3900 #### [facility] [address] [place], [address] Erythrocyte distribution width (RBC) [Ratio] 14.6 % Normal 11.6-14.6 [facility] Comment on above: Performed By: #### L 300.3900 #### [facility] [address] [place], [address] Hematocrit (Bld) [Volume fraction] 40.4 % Normal 40-54 [facility] Comment on above: Performed By: #### L 300.3900 #### [facility] [address] [place], [address] Hemoglobin (Bld) [Mass/Vol] 12.7 g/dL Low 13.0-16. 5 [facility] Comment on above: Performed By: #### L 300.3900 #### [facility] [address] [place], [address] IG% 2.000 High 0.0-0.9 [facility] Comment on above: Result Comment: IG% - Immature Granulocytes (promyelocytes, myelocytes and metamyelocytes) > 1% indicates that a LEFT SHIFT is Present. Performed By: #### L 300.3900 #### [facility] [address] [place], [address] Lymphocytes/100 WBC (Bld) 22.8 % Normal 19-41 [facility] Comment on above: Performed By: #### L 300.3900 #### [facility] [address] [place], [address] MCH (RBC) [Entitic mass] 27.3 pg Normal 27.0-32.0 [facility] Comment on above: Performed By: #### L 300.3900 #### [facility] [address] [place], [address] MCHC (RBC) [Mass/Vol] 31.4 g/dL Low 32-36 [facility] Comment on above: Performed By: #### L 300.3900 #### [facility] [address] [place], [address] MCV (RBC) [Entitic vol] 86.7 fL Normal 80-94 [facility] Comment on above: Performed By: #### L 300.3900 #### [facility] [address] [place], [address] Monocytes/100 WBC (Bld) 6.3 % Normal 0-10 [facility] Comment on above: Performed By: #### L 300.3900 #### [facility] [address] [place], [address] Neutrophils/100 WBC (Bld) 64.9 % Normal 47-70 [facility] Comment on above: Performed By: #### L 300.3900 #### [facility] [address] [place], [address] Nucleated RBC (Bld) [#/Vol] 0 10*3/uL Normal 0-5 [facility] Comment on above: Performed By: #### L 300.3900 #### [facility] [address] [place], [address] Platelet mean volume (Bld) [Entitic vol] 9.3 fL Normal 6.2-12.0 [facility] Comment on above: Performed By: #### L 300.3900 #### [facility] [address] [place], [address] Platelets (Bld) [#/Vol] 243 10*3/uL Normal 150-450 [facility] Comment on above: Performed By: #### L 300.3900 #### [facility] [address] [place], [address] RBC (Bld) [#/Vol] 4.66 10*6/uL Normal 4.6-6.2 [facility] Comment on above: Performed By: #### L 300.3900 #### [facility] [address] [place], [address] RDW SD 45.9 fl High 35.1-43.9 [facility] Comment on above: Performed By: #### L 300.3900 #### [facility] [address] [place], [address] WBC (Bld) [#/Vol] 11.2 10*3/uL High 4.4-11.0 [facility] Comment on above: Performed By: #### L 300.3900 #### [facility] [address] [place], [address] Comprehensive Metabolic Prof ilon 04-08-2024 Albumin [Mass/Vol] 3.1 g/dL Low 3.2-5.0 [facility] Comment on above: Performed By: #### L 300.3900 #### [facility] [address] [place], [address] Albumin/Globulin [Mass ratio] 1.1 {ratio} Normal 0.9-2.4 [facility] Comment on above: Performed By: #### L 300.3900 #### [facility] [address] [place], [address] ALK P 97 U/L Normal 45-117 [facility] Comment on above: Performed By: #### L 300.3900 #### [facility] [address] [place], [address] ALT [Catalytic activity/Vol] 18 U/L Normal 16-61 [facility] Comment on above: Performed By: #### L 300.3900 #### [facility] [address] [place], [address] AST [Catalytic activity/Vol] 7 U/L Low 15-37 [facility] Comment on above: Performed By: #### L 300.3900 #### [facility] [address] [place], [address] Bilirubin [Mass/Vol] 0.40 mg/dL Normal 0.20-1.00 [facility] Comment on above: Result Comment: For patients on eltrombopag therapy, use of Dimension [place] TBIL is not recommended. Performed By: #### L 300.3900 #### [facility] [address] [place], [address] BUN/CRE 29.1 RATIO High 10-20 [facility] Comment on above: Performed By: #### L 300.3900 #### [facility] [address] [place], [address] CA,Total 9.3 mg/dL Normal 8.5-10.1 [facility] Comment on above: Performed By: #### L 300.3900 #### [facility] [address] [place], [address] Chloride [Moles/Vol] 106 mmol/L Normal 98-107 [facility] Comment on above: Performed By: #### L 300.3900 #### [facility] [address] [place], [address] CO2 [Moles/Vol] 29.0 mmol/L Normal 21.0-32.0 [facility] Comment on above: Performed By: #### L 300.3900 #### [facility] [address] [place], [address] Creatinine [Mass/Vol] 1.10 mg/dL Normal 0.70-1.30 [facility] Comment on above: Result Comment: The validity of the calculated GFR GFRAA in patients over 70 years has not been determined. Clinical correlation is essential. Performed By: #### L 300.3900 #### [facility] [address] [place], [address] EST GFR - AA 84 mL/min Normal >60 [facility] Comment on above: Result Comment: Afri can [place] GFR Calc Performed By: #### L 300.3900 #### [facility] [address] [place], [address] GAP 5 Normal 5-15 [facility] Comment on above: Performed By: #### L 300.3900 #### [facility] [address] [place], [address] GFR/1.73 sq M.predicted among non-blacks MDRD (S/P/Bld) [Vol rate/Area] 69 mL/min/{1.73_m2} Normal >60 [facility] Comment on above: Result Comment: Non- GFR Calc Performed By: #### L 300.3900 #### [facility] [address] [place], [address] Globulin (S) [Mass/Vol] 2.8 g/dL Normal 2.2-4.2 [facility] Comment on above: Performed By: #### L 300.3900 #### [facility] Laboratory [address] [place], [address] Glucose [Mass/Vol] 133 mg/dL High 74-106 [facility] Comment on above: Result Comment: Fast ing Glucose result greater than or equal to 126 mg/dL suggests DIABETES MELLITUS per A.D.A. criteria. Performed By: #### L 300.3900 #### [facility] [address] [place], [address] Potassium [Moles/Vol] 3.8 mmol/L Normal 3.5-5.1 [facility] Comment on above: Performed By: #### L 300.3900 #### [facility] [address] [place], [address] Sodium [Moles/Vol] 140 mmol/L Normal 136-145 [facility] Comment on above: Performed By: #### L 300.3900 #### [facility] [address] [place], [address] T PROT 5.9 g/dL Low 6.4-8.2 [facility] Comment on above: Performed By: #### L 300.3900 #### [facility] [address] [place], [address] Urea nitrogen [Mass/Vol] 32 mg/dL High 7-18 [facility] Comment on above: Performed By: #### L 300.3900 #### [facility] [address] [place], [address] Lipid Profileon 04-08-2024 Cholesterol [Mass/Vol] 100 mg/dL Normal 200 [facility] Comment on above: Result Comment: <200 mg/dL Desirable 200-240 mg/dL Borderline >240 mg/dL High Risk Performed By: #### L 300.3900 #### [facility] [address] [place], [address] Cholesterol in HDL [Mass/Vol] 34 mg/dL Low [facility] Comment on above: Result Comment: The drugs N-Acetylcysteine and Metamizole may falsely depress this assay. Reference Range HDL <40 mg/dL Low HDL Cholesterol HDL >or= 60 mg/dL High HDL Cholesterol Performed By: #### L 300.3900 #### [facility] [address] [place], [address] Cholesterol in LDL [Mass/Vol] 36 mg/dL Normal 0-130 [facility] Comment on above: Performed By: #### L 300.3900 #### [facility] [address] [place], [address] Cholesterol in VLDL [Mass/Vol] 30 mg/dL Normal 5-40 [facility] Comment on above: Performed By: #### L 300.3900 #### [facility] [address] [place], [address] Triglyceride [Mass/Vol] 148 mg/dL Normal [facility] Comment on above: Result Comment: The drugs N-Acetylcysteine and Metamizole may falsely depress this assay. Serum Triglycerides Reference Interval Normal <150 mg/dL Borderline high 150 - 199 mg/dL High 200 - 499 mg/dL Very High > or = 500 mg/dL Performed By: #### L 300.3900 #### [facility] [address] [place], [address] Cardiology Visit Reporton Cardiology Visit Report [facility] [address] [place] [address] OFFICE VISIT Date of Service: 04/07/24 MR#: [id number] Acct: [id number] Name: RICHARD ROY Rep #: [id number] : 1945 Provider: Dr. Olga Lidia Rasheed MD Age/Sex: 78/M Location: [facility] [place] [facility] Status: Signed HPI HPI History of Present Illness Details: This gentleman has a history of sick sinus syndrome status post permanent pacemaker placement, paroxysmal atrial fibrillation, pulmonary embolism, hypertension and dyslipidemia. He is here for follow-up visit. Denies any complaints today. Intake Vital Signs 10/07/23 14:18 04/07/24 08:01 Height 6 ft 6 ft Weight: 236 lb BMI 32.0 BP 131/76 H Blood Pressure Location Rt brachial Position Sitting Respiration 16 Pulse 59 L Pulse Source NIBP Intake Visit Reasons: 6 M FU Accompanied by: Caregiver Is patient in pain?: No Allergies propofol Adverse Reaction (Verified 04/07/24 11:14) Other Medications ???Medication ???Instructions ???Recorded ???Confirmed ???Type losartan 50 mg tablet 50 mg PO DAILY blood pressure 03/24/18 04/07/24 History atorvastatin 40 mg tablet 40 mg PO QHS cholesterol 05/22/18 04/07/24 History tamsulosin 0.4 mg capsule 0.4 mg PO QHS PROSTATE 03/02/22 04/07/24 History cholecalciferol (vitamin D3) 1,250 1,250 mcg PO MO SUPPLEMENT 01/21/23 04/07/24 History mcg (50,000 unit) tablet metformin 1,000 mg tablet 1,000 mg PO BID DM 01/21/23 04/07/24 History insulin glargine 100 unit/mL (3 15 unit (0.15 mL) subcut DAILY 01/26/23 04/07/24 Rx mL) subcutaneous pen (Lantus diabetes #15 mL Solostar U-100 Insulin) pantoprazole 40 mg tablet,delayed 40 mg PO BID #60 tabs 02/05/23 04/07/24 Rx release sucralfate 1 gram tablet 1 g PO 0700,1100,1600 #90 tabs 02/05/23 04/07/24 Rx melatonin 3 mg tablet 3 mg PO QHS Insomnia 02/10/23 04/07/24 History memantine 10 mg tablet 10 mg PO BID #0 tabs 02/13/23 04/07/24 Rx metoprolol succinate 25 mg 25 mg PO DAILY blood pressure #30 03/27/23 04/07/24 Rx tablet,extended release 24 hr tabs bisacodyl 10 mg rectal suppository 10 mg ID DAILY PRN constipation 05/30/23 04/07/24 History loperamide 2 mg capsule 2 mg PO Q4H PRN loose stool 05/30/23 04/07/24 History (Anti-Diarrheal (loperamide)) acetaminophen 325 mg tablet 650 mg PO .q12hrs PAIN AND FEVER 10/07/23 04/07/24 History ferrous sulfate 325 mg (65 mg 325 mg PO DAILY 10/07/23 04/07/24 History iron) tablet apixaban 5 mg tablet (Eliquis) 5 mg PO BID #60 tabs 03/03/24 04/07/24 Rx paroxetine HCl 30 mg tablet 30 mg PO QDAY 04/07/24 04/07/24 History Ejection fraction %: 55 Have you fallen in the past year?: No PFSH Medical History (Updated 04/07/24 @ 11:[address] Olga Lidia Rasheed MD) History of stress test History of echocardiogram Cardiology follow-up encounter Uses wheelchair Difficulty swallowing History of ulceration History of GI bleed History of renal disease Prostate disease Pulmonary embolism High cholesterol Atrial tachycardia Anxiety Depression Kidney stones GI bleed Non-smoker Atrial fibrillation AAA (abdominal aortic aneurysm) Dementia Bacteremia Subtherapeutic international normalized ratio (INR) UTI (urinary tract infection) Presence of cardiac pacemaker Sick sinus syndrome Anemia Second degree AV block, Mobitz type II Supratherapeutic INR Syncope Acute encephalopathy Weakness Confusion History of pulmonary embolism NSTEMI, initial episode of care Valvular heart disease Amputation of right great toe Leukocytosis Hyperkalemia COVID-19 Ureterolithiasis Diabetes Aortic aneurysm without rupture HTN (hypertension) Lactic acidosis Upper gastrointestinal bleed Diabetic neuropathy Osteomyelitis Ulcer of right great toe due to diabetes mellitus Pulmonary emboli HLD (hyperlipidemia) RBBB (right bundle 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) Surgical History History of AAA (abdominal aortic aneurysm) repair History of foot surgery Hx of abdominal surgery H/O aortic valve repair History of thoracic aortic aneurysm repair Family History Mother Heart disease Diabetes Hypertension Father Heart disease Social History housing: senior living current occupational status: retired Smoking Status: Never smoker alcohol intake: never substance use type: does not use ROS Const Const: Negative for fatigue, weakness or headache(s) ENT ENT: Negative for headache(s), dizziness, Nosebleed/epistaxis or balance problems Cardio Chest Pain: No Palpitations: No Edema: None Muscle aches with walking: None Resp Respi (more content not included)... Normal [facility] Protime w/INR Fingerstickon 03-02-2024 INR Coag (PPP) [Relative time] 1.7 {INR} Normal [facility] Comment on above: Result Comment: Crit ical Value > 4.0 Performed By: #### L [id number] #### [facility] [address] [place], [address] Protime Coagsen 18.4 SEC High 11.7-14.9 [facility] Comment on above: Performed By: #### L [id number] #### [facility] [address] [place], [address] Prothrombin Time w/INRon INR Coag (PPP) [Relative time] 2.9 {INR} Normal [facility] Comment on above: Order Comment: 215.2 Performed By: #### L [id number] #### [facility] [address] [place], [address] PT Coag (PPP) [Time] 30.1 s High 11.7-14.9 [facility] Comment on above: Order Comment: 215.2 Performed By: #### L [id number] #### [facility] [address] [place], [address] Prothrombin Time w/INRon 08- 07-2024 INR Coag (PPP) [Relative time] 2.2 {INR} Normal [facility] Comment on above: Performed By: #### L 500.4050, L501.9985, L100.0500 #### [facility] [address] [place], [address] PT Coag (PPP) [Time] 24.6 s High 11.7-14.9 [facility] Comment on above: Performed By: #### L [id number], [id number], L100.0500 #### [facility] [address] [place], [address] Protime w/INR Fingerstickon 02-17-2024 INR Coag (PPP) [Relative time] 1.8 {INR} Normal [facility] Comment on above: Result Comment: Crit ical Value > 4.0 Performed By: #### L [id number] #### [facility] [address] [place], [address] Protime Coagsen 19.6 SEC High 11.7-14.9 [facility] Comment on above: Performed By: #### L [id number] #### [facility] [address] [place], [address] Prothrombin Time w/INRon INR Coag (PPP) [Relative time] 2.6 {INR} Normal [facility] Comment on above: Order Comment: 215.2 Performed By: #### L [id number], L501.9985, L100.0500 #### [facility] [address] [place], [address] PT Coag (PPP) [Time] 27.9 s High 11.7-14.9 [facility] Comment on above: Order Comment: 215.2 Performed By: #### L 500.4050, [id number], L100.0500 #### [facility] [address] [place], [address] Prothrombin Time w/INRon INR Coag (PPP) [Relative time] 3.5 {INR} Normal [facility] Comment on above: Order Comment: 215.2 Performed By: #### L 300.3900 #### [facility] [address] [place], [address] PT Coag (PPP) [Time] 34.9 s High 11.7-14.9 [facility] Comment on above: Order Comment: 215.2 Performed By: #### L 300.3900 #### [facility] [address] [place], [address] Prothrombin Time w/INRon INR Coag (PPP) [Relative time] 3.3 {INR} Normal [facility] Comment on above: Order Comment: 215.2 Performed By: #### L [id number], L501.9985, L100.0500 #### [facility] [address] [place], [address] PT Coag (PPP) [Time] 33.5 s High 11.7-14.9 [facility] Comment on above: Order Comment: 215.2 Performed By: #### L [id number], [id number], L100.0500 #### [facility] [address] [place], [address] Protime w/INR Fingerstickon 02-03-2024 INR Coag (PPP) [Relative time] 2.6 {INR} Normal [facility] Comment on above: Result Comment: Crit ical Value > 4.0 Performed By: #### L [id number] #### [facility] [address] [place], [address] Protime Coagsen 26.7 SEC High 11.7-14.9 [facility] Comment on above: Performed By: #### L [id number] #### [facility] [address] [place], [address] Protime w/INR Fingerstickon 01-27-2024 INR Coag (PPP) [Relative time] 2.1 {INR} Normal [facility] Comment on above: Result Comment: Crit ical Value > 4.0 Performed By: #### L [id number], L501.9985, L100.0500 #### [facility] [address] [place], [address] Protime Coagsen 22.1 SEC High 11.7-14.9 [facility] Comment on above: Performed By: #### L [id number], [id number], L100.0500 #### [facility] [address] [place], [address] Prothrombin Time w/INRon INR Coag (PPP) [Relative time] 2.3 {INR} Normal [facility] Comment on above: Performed By: #### L [id number], L501.9985, L100.0500 #### [facility] [address] [place], [address] PT Coag (PPP) [Time] 25.4 s High 11.7-14.9 [facility] Comment on above: Performed By: #### L 500.4050, L501.9985, L100.0500 #### [facility] [address] [place], [address] Vitamin D,25 Hydroxyon 01-15 Vitamin D 25-OH 91.1 ng/mL Normal [facility] Comment on above: Order Comment: 215.2 Result Comment: Laure min D 25(OH) Status Range Deficiency <20 ng/mL (50nmol/L) Insufficiency 20 - 30 ng/mL (50 - 75 nmol/L) Sufficiency 30 - 100 ng/mL (75 - 250 nmol/L) Toxicity >100 ng/mL (>250 nmol/L) Performed By: #### L [id number] #### [facility] [address] [place], [address] CBC-Complete Blood Cnt No Di ffon 01-15-2024 Erythrocyte distribution width (RBC) [Ratio] 14.4 % Normal 11.6-14.6 [facility] Comment on above: Order Comment: 215.2 Performed By: #### L [id number] #### [facility] [address] [place], [address] Hematocrit (Bld) [Volume fraction] 40.5 % Normal 40-54 [facility] Comment on above: Order Comment: 215.2 Performed By: #### L [id number] #### [facility] [address] [place], [address] Hemoglobin (Bld) [Mass/Vol] 13.0 g/dL Normal 13.0-16. 5 [facility] Comment on above: Order Comment: 215.2 Performed By: #### L [id number] #### [facility] [address] [place], [address] MCH (RBC) [Entitic mass] 27.6 pg Normal 27.0-32.0 [facility] Comment on above: Order Comment: 215.2 Performed By: #### L [id number] #### [facility] [address] [place], [address] MCHC (RBC) [Mass/Vol] 32.1 g/dL Normal 32-36 [facility] Comment on above: Order Comment: 215.2 Performed By: #### L [id number] #### [facility] [address] [place], [address] MCV (RBC) [Entitic vol] 86.0 fL Normal 80-94 [facility] Comment on above: Order Comment: 215.2 Performed By: #### L [id number] #### [facility] [address] [place], [address] Platelet mean volume (Bld) [Entitic vol] 9.7 fL Normal 6.2-12.0 [facility] Comment on above: Order Comment: 215.2 Performed By: #### L [id number] #### [facility] [address] [place], [address] Platelets (Bld) [#/Vol] 228 10*3/uL Normal 150-450 [facility] Comment on above: Order Comment: 215.2 Performed By: #### L [id number] #### [facility] [address] [place], [address] RBC (Bld) [#/Vol] 4.71 10*6/uL Normal 4.6-6.2 [facility] Comment on above: Order Comment: 215.2 Performed By: #### L [id number] #### [facility] [address] [place], [address] RDW SD 44.4 fl High 35.1-43.9 [facility] Comment on above: Order Comment: 215.2 Performed By: #### L 9200.0000 #### [facility] [address] [place], [address] WBC (Bld) [#/Vol] 8.8 10*3/uL Normal 4.4-11.0 [facility] Comment on above: Order Comment: 215.2 Performed By: #### L [id number] #### [facility] [address] [place], [address] Comprehensive Metabolic Prof ilon 01-15-2024 Albumin [Mass/Vol] 3.2 g/dL Normal 3.2-5.0 [facility] Comment on above: Order Comment: 215.2 Performed By: #### L [id number] #### [facility] [address] [place], [address] Albumin/Globulin [Mass ratio] 1.0 {ratio} Normal 0.9-2.4 [facility] Comment on above: Order Comment: 215.2 Performed By: #### L [id number] #### [facility] [address] [place], [address] ALK P 105 U/L Normal 45-117 [facility] Comment on above: Order Comment: 215.2 Performed By: #### L [id number] #### [facility] [address] [place], [address] ALT [Catalytic activity/Vol] 27 U/L Normal 16-61 [facility] Comment on above: Order Comment: 215.2 Performed By: #### L [id number] #### [facility] [address] [place], [address] AST [Catalytic activity/Vol] 8 U/L Low 15-37 [facility] Comment on above: Order Comment: 215.2 Performed By: #### L [id number] #### [facility] [address] [place], [address] Bilirubin [Mass/Vol] 0.40 mg/dL Normal 0.20-1.00 [facility] Comment on above: Order Comment: 215.2 Result Comment: For patients on eltrombopag therapy, use of Dimension [place] TBIL is not recommended. Performed By: #### L 9200.0000 #### [facility] [address] [place], [address] BUN/CRE 22.0 RATIO High 10-20 [facility] Comment on above: Order Comment: 215.2 Performed By: #### L [id number] #### [facility] [address] [place], [address] CA,Total 9.1 mg/dL Normal 8.5-10.1 [facility] Comment on above: Order Comment: 215.2 Performed By: #### L [id number] #### [facility] [address] [place], [address] Chloride [Moles/Vol] 105 mmol/L Normal 98-107 [facility] Comment on above: Order Comment: 215.2 Performed By: #### L [id number] #### [facility] [address] [place], [address] CO2 [Moles/Vol] 30.0 mmol/L Normal 21.0-32.0 [facility] Comment on above: Order Comment: 215.2 Performed By: #### L [id number] #### [facility] [address] [place], [address] Creatinine [Mass/Vol] 1.27 mg/dL Normal 0.70-1.30 [facility] Comment on above: Order Comment: 215.2 Result Comment: The validity of the calculated GFR GFRAA in patients over 70 years has not been determined. Clinical correlation is essential. Performed By: #### L [id number] #### [facility] [address] [place], [address] EST GFR - AA 71 mL/min Normal >60 [facility] Comment on above: Order Comment: 215.2 Result Comment: Afri can [place] GFR Calc Performed By: #### L [id number] #### [facility] [address] [place], [address] GAP 6 Normal 5-15 [facility] Comment on above: Order Comment: 215.2 Performed By: #### L 9200.0000 #### [facility] [address] [place], [address] GFR/1.73 sq M.predicted among non-blacks MDRD (S/P/Bld) [Vol rate/Area] 59 mL/min/{1.73_m2} Low >60 [facility] Comment on above: Order Comment: 215.2 Result Comment: Non- GFR Calc Performed By: #### L [id number] #### [facility] [address] [place], [address] Globulin (S) [Mass/Vol] 3.1 g/dL Normal 2.2-4.2 [facility] Comment on above: Order Comment: 215.2 Performed By: #### L [id number] #### [facility] [address] [place], [address] Glucose [Mass/Vol] 150 mg/dL High 74-106 [facility] Comment on above: Order Comment: 215.2 Result Comment: Fast ing Glucose result greater than or equal to 126 mg/dL suggests DIABETES MELLITUS per A.D.A. criteria. Performed By: #### L [id number] #### [facility] [address] [place], [address] Potassium [Moles/Vol] 4.1 mmol/L Normal 3.5-5.1 [facility] Comment on above: Order Comment: 215.2 Performed By: #### L [id number] #### [facility] [address] [place], [address] Sodium [Moles/Vol] 141 mmol/L Normal 136-145 [facility] Comment on above: Order Comment: 215.2 Performed By: #### L [id number] #### [facility] [address] [place], [address] T PROT 6.3 g/dL Low 6.4-8.2 [facility] Comment on above: Order Comment: 215.2 Performed By: #### L [id number] #### [facility] [address] [place], [address] Urea nitrogen [Mass/Vol] 28 mg/dL High 7-18 [facility] Comment on above: Order Comment: 215.2 Performed By: #### L [id number] #### [facility] [address] [place], [address] Hemoglobin A1con 01-15-2024 HbA1c (Bld) [Mass fraction] 6.5 % High 3.8-5.6 [facility] Comment on above: Order Comment: 215.2 Result Comment: Norm al < 5.7 % Prediabetic 5.7 - 6.4 % Diabetic >or= 6.5 % Please note range changes. Performed By: #### L 9200.0000 #### [facility] [address] [place], [address] Prothrombin Time w/INRon INR Coag (PPP) [Relative time] 2.5 {INR} Normal [facility] Comment on above: Order Comment: 215.2 Performed By: #### L [id number] #### [facility] [address] [place], [address] PT Coag (PPP) [Time] 27.2 s High 11.7-14.9 [facility] Comment on above: Order Comment: 215.2 Performed By: #### L [id number] #### [facility] [address] [place], [address] Thyroid Stim Hormone (TSH)on 01-15-2024 TSH 1.55 uIU/mL Normal 0.358-3.74 [facility] Comment on above: Order Comment: 215.2 Performed By: #### L [id number] #### [facility] [address] [place], [address] Protime w/INR Fingerstickon 01-14-2024 INR Coag (PPP) [Relative time] 3.8 {INR} Normal [facility] Comment on above: Result Comment: Crit ical Value > 4.0 Performed By: #### L [id number] #### [facility] [address] [place], [address] Protime Coagsen 37.5 SEC High 11.7-14.9 [facility] Comment on above: Performed By: #### L [id number] #### [facility] [address] [place], [address] Prothrombin Time w/INRon INR Coag (PPP) [Relative time] 3.9 {INR} Normal [facility] Comment on above: Order Comment: 215.2 Performed By: #### L 300.3900 #### [facility] [address] [place], [address] PT Coag (PPP) [Time] 37.6 s High 11.7-14.9 [facility] Comment on above: Order Comment: 215.2 Performed By: #### L 300.3900 #### [facility] [address] [place], [address] Protime w/INR Fingerstickon 01-06-2024 INR Coag (PPP) [Relative time] 2.0 {INR} Normal [facility] Comment on above: Result Comment: Crit ical Value > 4.0 Performed By: #### L 500.4050, L501.9985, L100.0500 #### [facility] [address] [place], [address] Protime Coagsen 20.9 SEC High 11.7-14.9 [facility] Comment on above: Performed By: #### L 500.4050, L501.9985, L100.0500 #### [facility] [address] [place], [address] Protime w/INR Fingerstickon 12-30-2023 INR Coag (PPP) [Relative time] 2.6 {INR} Normal [facility] Comment on above: Result Comment: Crit ical Value > 4.0 Performed By: #### L [id number] #### [facility] [address] [place], [address] Protime Coagsen 26.9 SEC High 11.7-14.9 [facility] Comment on above: Performed By: #### L [id number] #### [facility] [address] [place], [address] Protime w/INR Fingerstickon 12-27-2023 INR Coag (PPP) [Relative time] 2.1 {INR} Normal [facility] Comment on above: Result Comment: Crit ical Value > 4.0 Performed By: #### L [id number] #### [facility] [address] [place], [address] Protime Coagsen 22.2 SEC High 11.7-14.9 [facility] Comment on above: Performed By: #### L [id number] #### [facility] [address] [place], [address] Protime w/INR Fingerstickon 12-20-2023 INR Coag (PPP) [Relative time] 2.3 {INR} Normal [facility] Comment on above: Result Comment: Crit ical Value > 4.0 Performed By: #### L 500.4050, L501.9985, L100.0500 #### [facility] [address] [place], [address] Protime Coagsen 24.1 SEC High 11.7-14.9 [facility] Comment on above: Performed By: #### L 500.4050, L501.9985, L100.0500 #### [facility] [address] [place], [address] Prothrombin Time w/INRon INR Coag (PPP) [Relative time] 3.4 {INR} Normal [facility] Comment on above: Order Comment: 215.2 Performed By: #### L [id number], [id number], L100.0500 #### [facility] [address] [place], [place], [id number] PT Coag (PPP) [Time] 33.7 s High 11.7-14.9 [facility] Comment on above: Order Comment: 215.2 Performed By: #### L [id number], [id number], L100.0500 #### [facility] [address] [place], [place], [id number] Laboratory - CoagulationOrde red By: Walter Becker on 10-25-2023 INR Coag (Bld) [Relative time] 3.2 {INR} [facility] PT Coag (PPP) [Time] 32.9 s 11.7-14.9 [facility] Laboratory - CoagulationOrde red By: Walter Becker on 10-16-2023 INR Coag (Bld) [Relative time] 1.9 {INR} [facility] PT Coag (PPP) [Time] 21.6 s 11.7-14.9 [facility] Basophil percentageOrdered B y: Walter eBcker on 10-08-2023 Cholesterol [Mass/Vol] 107 mg/dL <200 [facility] Comment on above: <200 mg/dL Desirable 200-240 mg/dL Borderline >240 mg/dL High Risk Triglyceride [Mass/Vol] 133 mg/dL <199 [facility] Comment on above: The drugs N-Acetylcy steine and Metamizole may falsely depress this assay.Serum Triglycerides Reference Interval Normal <150 mg/dL Borderline high 150 - 199 mg/dL High 200 - 499 mg/dL Very High > or = 500 mg/dL Laboratory - Chemistry and C hemistry - challengeOrdered By: Walter Becker on 10-08-2023 ALT [Catalytic activity/Vol] 18 U/L 16-61 [facility] Cholesterol in HDL [Mass/Vol] 35 mg/dL >40 [facility] Comment on above: The drugs N-Acetylcy steine and Metamizole may falsely depress this assay. Reference Range HDL <40 mg/dL Low HDL Cholesterol HDL >or= 60 mg/dL High HDL Cholesterol Cholesterol in LDL [Mass/Vol] 45 mg/dL 0-130 [facility] CK [Catalytic activity/Vol] 59 U/L 39-308 [facility] No Panel InformationOrdered By: Walter Becker on 10-08-2023 VLDL Cholesterol 27 mg/dL 5-40 [facility] Thin prep Papanicolaou smear with manual screeningOrdered By: Walter Becker on 10-08-2023 Thin prep Papanicolaou smear with manual screening 10 U/L 15-37 [facility] Capillary blood internationa l normalized ratio (INR)Ordered By: Walter Becker on 10-04-2023 INR Coag (BldC) [Relative time] 2.2 [facility] Comment on above: Critical Value > 4.0 Whole blood prothrombin time Ordered By: Walter Becker on 10-04-2023 PT Coag (Bld) [Time] 22.6 s 11.7-14.9 [facility] Capillary blood internationa l normalized ratio (INR)Ordered By: Walter Becker on 10-01-2023 INR Coag (BldC) [Relative time] 1.9 [facility] Comment on above: Critical Value > 4.0 Whole blood prothrombin time Ordered By: Walter Becker on 10-01-2023 PT Coag (Bld) [Time] 19.9 s 11.7-14.9 [facility] Basophil percentageOrdered B y: Walter Becker on 09-25-2023 Bilirubin [Mass/Vol] 0.30 mg/dL 0.20-1.00 [facility] Comment on above: For patients on eltr ombopag therapy, use of Dimension [place] TBIL is not recommended. Chloride [Moles/Vol] 105 mmol/L 98-107 [facility] Glucose [Mass/Vol] 125 mg/dL 74-106 [facility] Comment on above: Fasting Glucose resu lt from 100 to 125 mg/dL suggests IMPAIRED HOMEOSTASIS per A.D.A. criteria. Hemoglobin (Bld) [Mass/Vol] 12.6 g/dL 13.0-16. 5 [facility] Potassium [Moles/Vol] 4.2 mmol/L 3.5-5.1 [facility] Protein [Mass/Vol] 6.2 g/dL 6.4-8.2 [facility] Sodium [Moles/Vol] 140 mmol/L 136-145 [facility] WBC (Bld) [#/Vol] 10.6 10*3/uL 4.4-11.0 [facility] Determination of erythrocyte mean corpuscular volume (MCV)Ordered By: Walter Becker on 09-25-2023 MCV (RBC) [Entitic vol] 85.8 fL 80-94 [facility] Erythrocyte distribution wid th ratioOrdered By: Walter Becker on 09-25-2023 Erythrocyte distribution width (RBC) [Ratio] 13.7 % 11.6-14.6 [facility] Erythrocyte distribution wid th standard deviationOrdered By: Walter Becker on 09-25-2023 Erythrocyte distribution width (RBC) [Entitic vol] 42.4 fL 35.1-43.9 [facility] Hematocrit Auto (Bld) [Volum e fraction]Ordered By: Walter Becker on 09-25-2023 Hematocrit (Bld) [Volume fraction] 39.4 % 40-54 [facility] Laboratory - Chemistry and C hemistry - challengeOrdered By: Walter Becker on 09-25-2023 Albumin/Globulin [Mass ratio] 1.1 {ratio} 0.9-2.4 [facility] ALP [Catalytic activity/Vol] 107 U/L 45-117 [facility] ALT [Catalytic activity/Vol] 19 U/L 16-61 [facility] CO2 [Moles/Vol] 29.0 mmol/L 21.0-32.0 [facility] Globulin (S) [Mass/Vol] 3.0 g/dL 2.2-4.2 [facility] Urea nitrogen/Creatinine [Mass ratio] 29.8 mg/mg 10-20 [facility] Laboratory - CoagulationOrde red By: Walter Becker on 09-25-2023 INR Coag (Bld) [Relative time] 2.8 {INR} [facility] PT Coag (PPP) [Time] 28.9 s 11.7-14.9 [facility] Laboratory - Hematology and Cell countsOrdered By: Walter Becker on 09-25-2023 MCH (RBC) [Entitic mass] 27.5 pg 27.0-32.0 [facility] MCHC (RBC) [Mass/Vol] 32.0 g/dL 32-36 [facility] Platelet mean volume (Bld) [Entitic vol] 9.9 fL 6.2-12.0 [facility] Platelets (Bld) [#/Vol] 235 10*3/uL 150-450 [facility] No Panel InformationOrdered By: Walter Becker on 09-25-2023 Estimated GFR (MDRD) Amer 75 mL/min >60 [facility] Comment on above: GFR Calc Estimated GFR (MDRD) Non-Af Amer 62 mL/min >60 [facility] Comment on above: Non- GFR Calc RBC Auto (Bld) [#/Vol]Ordere d By: Walter Becker on 09-25-2023 RBC (Bld) [#/Vol] 4.59 10*6/uL 4.6-6.2 [facility] Serum or plasma calcium antoine urement (mass/volume)Ordered By: Walter Becker on 09-25-2023 Calcium [Mass/Vol] 9.6 mg/dL 8.5-10.1 [facility] Serum or plasma creatinine m easurement (mass/volume)Ordered By: Walter Becker on 09-25-2023 Creatinine [Mass/Vol] 1.21 mg/dL 0.70-1.30 [facility] Comment on above: The validity of the calculated GFR & GFRAA in patients over 70 years has not been determined. Clinical correlation is essential. Serum or plasma urea nitroge n measurement (mass/volume)Ordered By: Walter Becker on 09-25-2023 Urea nitrogen [Mass/Vol] 36 mg/dL 7-18 [facility] Thin prep Papanicolaou smear with manual screeningOrdered By: Walter Becker on 09-25-2023 Thin prep Papanicolaou smear with manual screening 3.2 g/dL 3.2-5.0 [facility] Thin prep Papanicolaou smear with manual screening 11 U/L 15-37 [facility] Thin prep Papanicolaou smear with manual screening 6 5-15 [facility] Laboratory - CoagulationOrde red By: Walter Becker on 09-18-2023 INR Coag (Bld) [Relative time] 1.6 {INR} [facility] PT Coag (PPP) [Time] 18.7 s 11.7-14.9 [facility] Capillary blood internationa l normalized ratio (INR)Ordered By: Walter Becker on 09-13-2023 INR Coag (BldC) [Relative time] 3.1 [facility] Comment on above: Critical Value > 4.0 Whole blood prothrombin time Ordered By: Walter Becker on 09-13-2023 PT Coag (Bld) [Time] 33.3 s 11.7-14.9 [facility] Capillary blood internationa l normalized ratio (INR)Ordered By: Walter Becker on 09-12-2023 INR Coag (BldC) [Relative time] 1.7 [facility] Comment on above: Critical Value > 4.0 Whole blood prothrombin time Ordered By: Walter Becker on 09-12-2023 PT Coag (Bld) [Time] 19.2 s 11.7-14.9 [facility] Capillary blood internationa l normalized ratio (INR)Ordered By: Walter Becker on 09-09-2023 INR Coag (BldC) [Relative time] 2.9 [facility] Comment on above: Critical Value > 4.0 Whole blood prothrombin time Ordered By: Walter Becker on 09-09-2023 PT Coag (Bld) [Time] 31.5 s 11.7-14.9 [facility] Laboratory - CoagulationOrde red By: Walter Becker on 08-26-2023 INR Coag (Bld) [Relative time] 2.2 {INR} [facility] PT Coag (PPP) [Time] 24.7 s 11.7-14.9 [facility] Capillary blood internationa l normalized ratio (INR)Ordered By: Walter Becker on 08-19-2023 INR Coag (BldC) [Relative time] 2.7 [facility] Comment on above: Critical Value > 4.0 Whole blood prothrombin time Ordered By: Walter Becker on 08-19-2023 PT Coag (Bld) [Time] 29.2 s 11.7-14.9 [facility] Capillary blood internationa l normalized ratio (INR)Ordered By: Walter Becker on 08-12-2023 INR Coag (BldC) [Relative time] 2.5 [facility] Comment on above: Critical Value > 4.0 Whole blood prothrombin time Ordered By: Walter Becker on 08-12-2023 PT Coag (Bld) [Time] 26.7 s 11.7-14.9 [facility] Capillary blood internationa l normalized ratio (INR)Ordered By: Walter Becker on 08-05-2023 INR Coag (BldC) [Relative time] 1.9 [facility] Comment on above: Critical Value > 4.0 Whole blood prothrombin time Ordered By: Walter Becker on 08-05-2023 PT Coag (Bld) [Time] 20.7 s 11.7-14.9 [facility] Laboratory - CoagulationOrde red By: Walter Becker on 07-29-2023 INR Coag (Bld) [Relative time] 2.3 {INR} [facility] Comment on above: Critical Value > 4.0 Whole blood prothrombin time Ordered By: Walter Becker on 07-29-2023 PT Coag (Bld) [Time] 25.0 s 11.7-14.9 [facility] Laboratory - CoagulationOrde red By: Walter Becker on 07-22-2023 INR Coag (Bld) [Relative time] 2.0 {INR} [facility] Comment on above: Critical Value > 4.0 Whole blood prothrombin time Ordered By: Walter Becker on 07-22-2023 PT Coag (Bld) [Time] 22.4 s 11.7-14.9 [facility] Laboratory - CoagulationOrde red By: Walter Becker on 07-19-2023 INR Coag (Bld) [Relative time] 3.4 {INR} [facility] Comment on above: Critical Value > 4.0 Whole blood prothrombin time Ordered By: Walter Becker on 07-19-2023 PT Coag (Bld) [Time] 36.2 s 11.7-14.9 [facility] Laboratory - CoagulationOrde red By: Walter Becker on 07-17-2023 INR Coag (Bld) [Relative time] 3.0 {INR} [facility] Comment on above: Critical Value > 4.0 Whole blood prothrombin time Ordered By: Walter Becker on 07-17-2023 PT Coag (Bld) [Time] 32.2 s 11.7-14.9 [facility] Laboratory - CoagulationOrde red By: Walter Becker on 07-10-2023 INR Coag (Bld) [Relative time] 2.3 {INR} [facility] Comment on above: Critical Value > 4.0 Whole blood prothrombin time Ordered By: Walter Becker on 07-10-2023 PT Coag (Bld) [Time] 25.4 s 11.7-14.9 [facility] Laboratory - CoagulationOrde red By: Walter Becker on 07-03-2023 INR Coag (Bld) [Relative time] 1.5 {INR} [facility] Comment on above: Critical Value > 4.0 Whole blood prothrombin time Ordered By: Walter Becker on 07-03-2023 PT Coag (Bld) [Time] 16.5 s 11.7-14.9 [facility] Laboratory - CoagulationOrde red By: Walter Becker on 06-26-2023 INR Coag (Bld) [Relative time] 2.3 {INR} [facility] Comment on above: Critical Value > 4.0 Whole blood prothrombin time Ordered By: Walter Becker on 06-26-2023 PT Coag (Bld) [Time] 24.7 s 11.7-14.9 [facility] Laboratory - CoagulationOrde red By: Walter Becker on 06-25-2023 INR Coag (Bld) [Relative time] 3.2 {INR} [facility] Comment on above: Critical Value > 4.0 Whole blood prothrombin time Ordered By: Walter Becker on 06-25-2023 PT Coag (Bld) [Time] 34.3 s 11.7-14.9 [facility] Laboratory - CoagulationOrde red By: Walter Becker on 06-24-2023 INR Coag (Bld) [Relative time] 3.4 {INR} [facility] Comment on above: Critical Value > 4.0 Whole blood prothrombin time Ordered By: Walter Becker on 06-24-2023 PT Coag (Bld) [Time] 36.4 s 11.7-14.9 [facility] Laboratory - CoagulationOrde red By: Walter Becker on 06-17-2023 INR Coag (Bld) [Relative time] 2.4 {INR} [facility] Comment on above: Critical Value > 4.0 Whole blood prothrombin time Ordered By: Walter Becker on 06-17-2023 PT Coag (Bld) [Time] 26.1 s 11.7-14.9 [facility] Laboratory - CoagulationOrde red By: Walter Becker on 06-10-2023 INR Coag (Bld) [Relative time] 1.4 {INR} [facility] Comment on above: Critical Value > 4.0 Whole blood prothrombin time Ordered By: Walter Becker on 06-10-2023 PT Coag (Bld) [Time] 15.9 s 11.7-14.9 [facility] Glucose Glucometer (dC) [M ass/Vol]Ordered By: Kee Merritt on 06-03-2023 Glucose [Mass/Vol] 130 mg/dL 74-106 [facility] Comment on above: MANAGEMENT OF PATIEN T CARE PER NURSING PROTOCOL Laboratory - CoagulationOrde red By: Walter Becker on 05-20-2023 INR Coag (Bld) [Relative time] 2.6 {INR} [facility] Comment on above: Critical Value > 4.0 No Panel InformationOrdered By: Walter Becker on 05-20-2023 2.6 [facility] Whole blood prothrombin time Ordered By: Walter Becker on 05-20-2023 PT Coag (Bld) [Time] 27.6 s 11.7-14.9 [facility] Basophil percentageOrdered B y: Walter Becker on 11-01-2023 Basophil percentage 0 SEEN /hpf 0-5 [facility] Basophil percentage 114 mg/dL 74-106 [facility] Basophil percentage 5.9 g/dL 6.4-8.2 [facility] Basophil percentage 0.40 mg/dL 0.20-1.00 [facility] Basophil percentage 140 mmol/L 136-145 [facility] Basophil percentage 4.1 mmol/L 3.5-5.1 [facility] Basophil percentage 105 mmol/L 98-107 [facility] Basophils (Bld) [#/Vol] 10.4 10*3/uL 4.4-11.0 [facility] Bilirubin [Mass/Vol] 0.40 mg/dL 0.20-1.00 [facility] Comment on above: For patients on eltr ombopag therapy, use of Dimension [place] TBIL is not recommended. Chloride [Moles/Vol] 105 mmol/L 98-107 [facility] Glucose [Mass/Vol] 114 mg/dL 74-106 [facility] Comment on above: Fasting Glucose resu lt from 100 to 125 mg/dL suggests IMPAIRED HOMEOSTASIS per A.D.A. criteria. Potassium [Moles/Vol] 4.1 mmol/L 3.5-5.1 [facility] Protein [Mass/Vol] 5.9 g/dL 6.4-8.2 [facility] Sodium [Moles/Vol] 140 mmol/L 136-145 [facility] WBC (Bld) [#/Vol] 10.4 10*3/uL 4.4-11.0 [facility] Bilirubin Test strip Ql (U)O rdered By: Walter Becker on 05-15-2023 Bilirubin Ql (U) Negative Negative [facility] Blood erythrocytes count (nu mber/volume)Ordered By: Walter Becker on 05-15-2023 RBC (Bld) [#/Vol] 4.37 10*6/uL 4.6-6.2 [facility] Blood hemoglobin measurement (mass/volume)Ordered By: Walter Becker on 05-15-2023 Hemoglobin (Bld) [Mass/Vol] 11.6 g/dL 13.0-16. 5 [facility] Blood platelet mean volumeOr dered By: Walter Becker on 05-15-2023 Platelet mean volume (Bld) [Entitic vol] 9.4 fL 6.2-12.0 [facility] Culture, urineOrdered By: Horner on 05-15-2023 Bacteria identified Cx Nom (U) Culture exhibits no growth. [facility] Determination of erythrocyte mean corpuscular volume (MCV)Ordered By: Walter Becker on 05-15-2023 MCV (RBC) [Entitic vol] 84.7 fL 80-94 [facility] Hematocrit Auto (Bld) [Volum e fraction]Ordered By: Walter Becker on 05-15-2023 Hematocrit (Bld) [Volume fraction] 37.0 % 40-54 [facility] Ketones Test strip Ql (U)Ord ered By: Walter Becker on 05-15-2023 Ketones Ql (U) Negative Negative [facility] Laboratory - Chemistry and C hemistry - challengeOrdered By: Walter Becker on 05-15-2023 ALP [Catalytic activity/Vol] 97 U/L 45-117 [facility] ALT [Catalytic activity/Vol] 21 U/L 16-61 [facility] CO2 [Moles/Vol] 28.0 mmol/L 21.0-32.0 [facility] Globulin (S) [Mass/Vol] 3.0 g/dL 2.2-4.2 [facility] Urea nitrogen/Creatinine [Mass ratio] 30.7 mg/mg 10-20 [facility] Laboratory - Hematology and Cell countsOrdered By: Walter Becker on 05-15-2023 Erythrocyte distribution width (RBC) [Entitic vol] 43.3 fL 35.1-43.9 [facility] Erythrocyte distribution width (RBC) [Ratio] 14.1 % 11.6-14.6 [facility] MCH (RBC) [Entitic mass] 26.5 pg 27.0-32.0 [facility] MCHC Auto (RBC) [Mass/Vol]Or dered By: Walter Becker on 05-15-2023 MCHC (RBC) [Mass/Vol] 31.4 g/dL 32-36 [facility] Mucus LM Ql (Urine sed)Order ed By: Walter Becker on 05-15-2023 Mucus Ql (Urine sed) 0 SEEN /hpf [facility] Nitrite Test strip Ql (U)Ord ered By: Walter Becker on 05-15-2023 Nitrite Ql (U) Negative Negative [facility] No Panel InformationOrdered By: Walter Becker on 05-15-2023 Estimated GFR (MDRD) Amer 96 mL/min >60 [facility] Comment on above: GFR Calc Estimated GFR (MDRD) Non-Af Amer 79 mL/min >60 [facility] Comment on above: Non- GFR Calc 26.5 pg 27.0-32.0 [facility] 14.1 % 11.6-14.6 [facility] 43.3 fl 35.1-43.9 [facility] 79 mL/min >60 [facility] 96 mL/min >60 [facility] 30.7 RATIO 10-20 [facility] 3.0 g/dL 2.2-4.2 [facility] 97 U/L 45-117 [facility] 21 U/L 16-61 [facility] 28.0 mmol/L 21.0-32.0 [facility] Platelets bldOrdered By: Crystal Becker on 05-15-2023 Platelets (Bld) [#/Vol] 256 10*3/uL 150-450 [facility] Protein Test strip Ql (U)Ord ered By: Walter Becker on 05-15-2023 Protein Ql (U) Negative Negative [facility] Serum or plasma albumin antoine urement (mass/volume)Ordered By: Walter Becker on 05-15-2023 Albumin [Mass/Vol] 2.9 g/dL 3.2-5.0 [facility] Serum or plasma albumin/glob ulin mass ratioOrdered By: Walter Becker on 05-15-2023 Albumin/Globulin [Mass ratio] 1.0 {ratio} 0.9-2.4 [facility] Serum or plasma calcium antoine urement (mass/volume)Ordered By: Walter Becker on 05-15-2023 Calcium [Mass/Vol] 8.8 mg/dL 8.5-10.1 [facility] Serum or plasma creatinine m easurement (mass/volume)Ordered By: Walter Becker on 05-15-2023 Creatinine [Mass/Vol] 0.98 mg/dL 0.70-1.30 [facility] Comment on above: The validity of the calculated GFR & GFRAA in patients over 70 years has not been determined. Clinical correlation is essential. Serum or plasma urea nitroge n measurement (mass/volume)Ordered By: Walter Becker on 05-15-2023 Urea nitrogen [Mass/Vol] 30 mg/dL 7-18 [facility] Squamous epithelial cells de tection in urine sediment by light microscopyOrdered By: Walter Becker on 05-15-2023 Epithelial cells.squamous LM Ql (Urine sed) 0 SEEN /hpf 0-5 [facility] Thin prep Papanicolaou smear with manual screeningOrdered By: Walter Becker on 05-15-2023 Thin prep Papanicolaou smear with manual screening 9 U/L 15-37 [facility] Thin prep Papanicolaou smear with manual screening 7 5-15 [facility] Urine blood detectionOrdered By: Walter Becker on 05-15-2023 RBC Ql (U) Negative Negative [facility] RBC Ql (U) 0 SEEN /hpf 0-5 [facility] Urine clarityOrdered By: Crystal Becker on 05-15-2023 Clarity (U) Clear Clear [facility] Urine color determinationOrd ered By: Walter Becker on 05-15-2023 Color (U) Yellow Yellow [facility] Urine glucose detectionOrder ed By: Walter Becker on 05-15-2023 Glucose Ql (U) Normal mg/dl Normal [facility] Urine leukocyte esterase det ection by dipstickOrdered By: Walter Becker on 05-15-2023 Leukocyte esterase Test strip Ql (U) Negative Negative [facility] Urine pHOrdered By: Walter floyd on 05-15-2023 pH (U) 5.0 [pH] 5.0 - 8.0 [facility] Urine sediment bacteria coun t by microscopy (number/high power field)Ordered By: Walter Becker on 05-15-2023 Bacteria LM.HPF (Urine sed) [#/Area] 0 /[HPF] None Seen [facility] Urine specific gravity measu rementOrdered By: Walter Becker on 05-15-2023 Specific gravity (U) [Rel density] 1.010 1.002-1.03 0 [facility] Urobilinogen Auto test strip Ql (U)Ordered By: Walter Becker on 05-15-2023 Urobilinogen Ql (U) Normal mg/dl Normal [facility] Basophil percentageOrdered B y: Walter Becker on 05-06-2023 Basophil percentage 135 mg/dL 74-106 [facility] Basophil percentage 5.9 g/dL 6.4-8.2 [facility] Basophil percentage 0.40 mg/dL 0.20-1.00 [facility] Basophil percentage 140 mmol/L 136-145 [facility] Basophil percentage 3.7 mmol/L 3.5-5.1 [facility] Basophil percentage 106 mmol/L 98-107 [facility] Basophils (Bld) [#/Vol] 9.4 10*3/uL 4.4-11.0 [facility] Bilirubin [Mass/Vol] 0.40 mg/dL 0.20-1.00 [facility] Comment on above: For patients on eltr ombopag therapy, use of Dimension [place] TBIL is not recommended. Chloride [Moles/Vol] 106 mmol/L 98-107 [facility] Glucose [Mass/Vol] 135 mg/dL 74-106 [facility] Comment on above: Fasting Glucose resu lt greater than or equal to 126 mg/dL suggests DIABETES MELLITUS per A.D.A. criteria. Potassium [Moles/Vol] 3.7 mmol/L 3.5-5.1 [facility] Protein [Mass/Vol] 5.9 g/dL 6.4-8.2 [facility] Sodium [Moles/Vol] 140 mmol/L 136-145 [facility] WBC (Bld) [#/Vol] 9.4 10*3/uL 4.4-11.0 [facility] Blood erythrocytes count (nu mber/volume)Ordered By: Walter Becker on 05-06-2023 RBC (Bld) [#/Vol] 4.49 10*6/uL 4.6-6.2 [facility] Blood hemoglobin measurement (mass/volume)Ordered By: Walter Becker on 05-06-2023 Hemoglobin (Bld) [Mass/Vol] 12.0 g/dL 13.0-16. 5 [facility] Blood platelet mean volumeOr dered By: Walter Becker on 05-06-2023 Platelet mean volume (Bld) [Entitic vol] 9.5 fL 6.2-12.0 [facility] Determination of erythrocyte mean corpuscular volume (MCV)Ordered By: Walter Becker on 05-06-2023 MCV (RBC) [Entitic vol] 85.7 fL 80-94 [facility] Hematocrit Auto (Bld) [Volum e fraction]Ordered By: Walter Becker on 05-06-2023 Hematocrit (Bld) [Volume fraction] 38.5 % 40-54 [facility] INR in Blood by Coagulation assayOrdered By: Walter Becker on 05-06-2023 INR Coag (Bld) [Relative time] 2.5 {INR} [facility] Laboratory - Chemistry and C hemistry - challengeOrdered By: Walter Becker on 05-06-2023 ALP [Catalytic activity/Vol] 93 U/L 45-117 [facility] ALT [Catalytic activity/Vol] 23 U/L 16-61 [facility] CO2 [Moles/Vol] 29.0 mmol/L 21.0-32.0 [facility] Globulin (S) [Mass/Vol] 2.9 g/dL 2.2-4.2 [facility] Urea nitrogen/Creatinine [Mass ratio] 25.8 mg/mg 10-20 [facility] Laboratory - CoagulationOrde red By: Walter Becker on 05-06-2023 PT Coag (PPP) [Time] 27.5 s 11.7-14.9 [facility] Laboratory - Hematology and Cell countsOrdered By: Walter Becker on 05-06-2023 Erythrocyte distribution width (RBC) [Entitic vol] 44.4 fL 35.1-43.9 [facility] Erythrocyte distribution width (RBC) [Ratio] 14.2 % 11.6-14.6 [facility] MCH (RBC) [Entitic mass] 26.7 pg 27.0-32.0 [facility] MCHC Auto (RBC) [Mass/Vol]Or dered By: Walter Becker on 05-06-2023 MCHC (RBC) [Mass/Vol] 31.2 g/dL 32-36 [facility] No Panel InformationOrdered By: Walter Becker on 05-06-2023 Estimated GFR (MDRD) Amer 102 mL/min >60 [facility] Comment on above: GFR Calc Estimated GFR (MDRD) Non-Af Amer 84 mL/min >60 [facility] Comment on above: Non- GFR Calc 26.7 pg 27.0-32.0 [facility] 14.2 % 11.6-14.6 [facility] 44.4 fl 35.1-43.9 [facility] 27.5 SECONDS 11.7-14.9 [facility] 84 mL/min >60 [facility] 102 mL/min >60 [facility] 25.8 RATIO 10-20 [facility] 2.9 g/dL 2.2-4.2 [facility] 93 U/L 45-117 [facility] 23 U/L 16-61 [facility] 29.0 mmol/L 21.0-32.0 [facility] Platelets bldOrdered By: Crystal Becker on 05-06-2023 Platelets (Bld) [#/Vol] 238 10*3/uL 150-450 [facility] Serum or plasma albumin antoine urement (mass/volume)Ordered By: Walter Becker on 05-06-2023 Albumin [Mass/Vol] 3.0 g/dL 3.2-5.0 [facility] Serum or plasma albumin/glob ulin mass ratioOrdered By: Walter Becker on 05-06-2023 Albumin/Globulin [Mass ratio] 1.0 {ratio} 0.9-2.4 [facility] Serum or plasma calcium antoine urement (mass/volume)Ordered By: Walter Becker on 05-06-2023 Calcium [Mass/Vol] 9.1 mg/dL 8.5-10.1 [facility] Serum or plasma creatinine m easurement (mass/volume)Ordered By: Walter Becker on 05-06-2023 Creatinine [Mass/Vol] 0.93 mg/dL 0.70-1.30 [facility] Comment on above: The validity of the calculated GFR & GFRAA in patients over 70 years has not been determined. Clinical correlation is essential. Serum or plasma urea nitroge n measurement (mass/volume)Ordered By: Walter Becker on 05-06-2023 Urea nitrogen [Mass/Vol] 24 mg/dL 7-18 [facility] Thin prep Papanicolaou smear with manual screeningOrdered By: Walter Becker on 05-06-2023 Thin prep Papanicolaou smear with manual screening 10 U/L 15-37 [facility] Thin prep Papanicolaou smear with manual screening 5 5-15 [facility] Laboratory - CoagulationOrde red By: Walter Becker on 04-29-2023 INR Coag (Bld) [Relative time] 2.8 {INR} [facility] Comment on above: Critical Value > 4.0 No Panel InformationOrdered By: Walter Becker on 04-29-2023 2.8 [facility] Whole blood prothrombin time Ordered By: Walter Becker on 04-29-2023 PT Coag (Bld) [Time] 29.6 s 11.7-14.9 [facility] Laboratory - CoagulationOrde red By: Walter Becker on 04-15-2023 INR Coag (Bld) [Relative time] 2.5 {INR} [facility] Comment on above: Critical Value > 4.0 No Panel InformationOrdered By: Walter Becker on 04-15-2023 2.5 [facility] Whole blood prothrombin time Ordered By: Walter Becker on 04-15-2023 PT Coag (Bld) [Time] 27.3 s 11.7-14.9 [facility] Basophil percentageOrdered B y: Walter Becker on 04-09-2023 Basophil percentage 115 mg/dL 74-106 [facility] Basophil percentage 5.8 g/dL 6.4-8.2 [facility] Basophil percentage 0.40 mg/dL 0.20-1.00 [facility] Basophil percentage 141 mmol/L 136-145 [facility] Basophil percentage 3.9 mmol/L 3.5-5.1 [facility] Basophil percentage 106 mmol/L 98-107 [facility] Basophils (Bld) [#/Vol] 10.2 10*3/uL 4.4-11.0 [facility] Bilirubin [Mass/Vol] 0.40 mg/dL 0.20-1.00 [facility] Comment on above: For patients on eltr ombopag therapy, use of Dimension [place] TBIL is not recommended. Chloride [Moles/Vol] 106 mmol/L 98-107 [facility] Glucose [Mass/Vol] 115 mg/dL 74-106 [facility] Comment on above: Fasting Glucose resu lt from 100 to 125 mg/dL suggests IMPAIRED HOMEOSTASIS per A.D.A. criteria. Potassium [Moles/Vol] 3.9 mmol/L 3.5-5.1 [facility] Protein [Mass/Vol] 5.8 g/dL 6.4-8.2 [facility] Sodium [Moles/Vol] 141 mmol/L 136-145 [facility] WBC (Bld) [#/Vol] 10.2 10*3/uL 4.4-11.0 [facility] Blood erythrocytes count (nu mber/volume)Ordered By: Walter Becker on 04-09-2023 RBC (Bld) [#/Vol] 4.16 10*6/uL 4.6-6.2 [facility] Blood hemoglobin measurement (mass/volume)Ordered By: Walter Becker on 04-09-2023 Hemoglobin (Bld) [Mass/Vol] 11.3 g/dL 13.0-16. 5 [facility] Blood platelet mean volumeOr dered By: Walter Becker on 04-09-2023 Platelet mean volume (Bld) [Entitic vol] 9.4 fL 6.2-12.0 [facility] Determination of erythrocyte mean corpuscular volume (MCV)Ordered By: Walter Becker on 04-09-2023 MCV (RBC) [Entitic vol] 86.5 fL 80-94 [facility] Hematocrit Auto (Bld) [Volum e fraction]Ordered By: Walter Becker on 04-09-2023 Hematocrit (Bld) [Volume fraction] 36.0 % 40-54 [facility] Laboratory - Chemistry and C hemistry - challengeOrdered By: Walter Becker on 04-09-2023 ALP [Catalytic activity/Vol] 105 U/L 45-117 [facility] ALT [Catalytic activity/Vol] 22 U/L 16-61 [facility] CO2 [Moles/Vol] 31.0 mmol/L 21.0-32.0 [facility] Globulin (S) [Mass/Vol] 2.9 g/dL 2.2-4.2 [facility] Urea nitrogen/Creatinine [Mass ratio] 29.9 mg/mg 10- [facility] Laboratory - Hematology and Cell countsOrdered By: Walter Becker on 04-09-2023 Erythrocyte distribution width (RBC) [Entitic vol] 46.8 fL 35.1-43.9 [facility] Erythrocyte distribution width (RBC) [Ratio] 14.6 % 11.6-14.6 [facility] MCH (RBC) [Entitic mass] 27.2 pg 27.0-32.0 [facility] MCHC Auto (RBC) [Mass/Vol]Or dered By: Walter Becker on 04-09-2023 MCHC (RBC) [Mass/Vol] 31.4 g/dL 32-36 [facility] No Panel InformationOrdered By: Walter Becker on 04-09-2023 Estimated GFR (MDRD) Amer 101 mL/min >60 [facility] Comment on above: GFR Calc Estimated GFR (MDRD) Non-Af Amer 84 mL/min >60 [facility] Comment on above: Non- GFR Calc 27.2 pg 27.0-32.0 [facility] 14.6 % 11.6-14.6 [facility] 46.8 fl 35.1-43.9 [facility] 84 mL/min >60 [facility] 101 mL/min >60 [facility] 29.9 RATIO 10- [facility] 2.9 g/dL 2.2-4.2 [facility] 105 U/L 45-117 [facility] 22 U/L 16-61 [facility] 31.0 mmol/L 21.0-32.0 [facility] Platelets bldOrdered By: Crystal Becker on 04-09-2023 Platelets (Bld) [#/Vol] 229 10*3/uL 150-450 [facility] Serum or plasma albumin antoine urement (mass/volume)Ordered By: Walter Becker on 04-09-2023 Albumin [Mass/Vol] 2.9 g/dL 3.2-5.0 [facility] Serum or plasma albumin/glob ulin mass ratioOrdered By: Walter Becker on 04-09-2023 Albumin/Globulin [Mass ratio] 1.0 {ratio} 0.9-2.4 [facility] Serum or plasma calcium antoine urement (mass/volume)Ordered By: Walter Becker on 04-09-2023 Calcium [Mass/Vol] 9.0 mg/dL 8.5-10.1 [facility] Serum or plasma creatinine m easurement (mass/volume)Ordered By: Walter Becker on 04-09-2023 Creatinine [Mass/Vol] 0.94 mg/dL 0.70-1.30 [facility] Comment on above: The validity of the calculated GFR & GFRAA in patients over 70 years has not been determined. Clinical correlation is essential. Serum or plasma urea nitroge n measurement (mass/volume)Ordered By: Walter Becker on 04-09-2023 Urea nitrogen [Mass/Vol] 28 mg/dL 7-18 [facility] Thin prep Papanicolaou smear with manual screeningOrdered By: Walter Becker on 04-09-2023 Thin prep Papanicolaou smear with manual screening 7 U/L 15-37 [facility] Thin prep Papanicolaou smear with manual screening 4 5-15 [facility] Laboratory - CoagulationOrde red By: Walter Becker on 04-08-2023 INR Coag (Bld) [Relative time] 2.4 {INR} [facility] Comment on above: Critical Value > 4.0 No Panel InformationOrdered By: Walter Becker on 04-08-2023 2.4 [facility] Whole blood prothrombin time Ordered By: Walter Becker on 04-08-2023 PT Coag (Bld) [Time] 25.9 s 11.7-14.9 [facility] - CoagulationOrde red By: Walter Becker on 04-01-2023 INR Coag (Bld) [Relative time] 1.9 {INR} [facility] Comment on above: Critical Value > 4.0 No Panel InformationOrdered By: Walter Becker on 04-01-2023 1.9 [facility] Whole blood prothrombin time Ordered By: Walter Becker on 04-01-2023 PT Coag (Bld) [Time] 21.0 s 11.7-14.9 [facility] - CoagulationOrde red By: Walter Becker on 03-25-2023 INR Coag (Bld) [Relative time] 1.9 {INR} [facility] Comment on above: Critical Value > 4.0 No Panel InformationOrdered By: Walter Becker on 03-25-2023 1.9 [facility] Whole blood prothrombin time Ordered By: Walter Becker on 03-25-2023 PT Coag (Bld) [Time] 21.1 s 11.7-14.9 [facility] INR in Blood by Coagulation assayOrdered By: Walter Becker on 03-11-2023 INR Coag (Bld) [Relative time] 2.4 {INR} [facility] Laboratory - CoagulationOrde red By: Walter Becker on 03-11-2023 PT Coag (PPP) [Time] 26.6 s 11.7-14.9 [facility] No Panel InformationOrdered By: Walter Becker on 03-11-2023 26.6 SECONDS 11.7-14.9 [facility] Whole blood hemoglobin A1c/t otal hemoglobin ratio (mass fraction)Ordered By: Walter Becker on 03-11-2023 HbA1c (Bld) [Mass fraction] 5.5 % 3.8-5.6 [facility] Comment on above: Normal < 5.7 % Predi abetic 5.7 - 6.4 % Diabetic >or= 6.5 % Please note range changes. Basophil percentageOrdered B y: Walter Becker on 03-04-2023 Basophil percentage 114 mg/dL 74-106 [facility] Basophil percentage 5.8 g/dL 6.4-8.2 [facility] Basophil percentage 0.30 mg/dL 0.20-1.00 [facility] Basophil percentage 139 mmol/L 136-145 [facility] Basophil percentage 4.0 mmol/L 3.5-5.1 [facility] Basophil percentage 106 mmol/L 98-107 [facility] Bilirubin [Mass/Vol] 0.30 mg/dL 0.20-1.00 [facility] Comment on above: For patients on eltr ombopag therapy, use of Dimension [place] TBIL is not recommended. Chloride [Moles/Vol] 106 mmol/L 98-107 [facility] Glucose [Mass/Vol] 114 mg/dL 74-106 [facility] Comment on above: Fasting Glucose resu lt from 100 to 125 mg/dL suggests IMPAIRED HOMEOSTASIS per A.D.A. criteria. Potassium [Moles/Vol] 4.0 mmol/L 3.5-5.1 [facility] Protein [Mass/Vol] 5.8 g/dL 6.4-8.2 [facility] Sodium [Moles/Vol] 139 mmol/L 136-145 [facility] Blood hemoglobin measurement (mass/volume)Ordered By: Walter Becker on 03-04-2023 Hemoglobin (Bld) [Mass/Vol] 10.6 g/dL 13.0-16. 5 [facility] Hematocrit Auto (Bld) [Volum e fraction]Ordered By: Walter Becker on 03-04-2023 Hematocrit (Bld) [Volume fraction] 35.7 % 40-54 [facility] INR in Blood by Coagulation assayOrdered By: Walter Becker on 03-04-2023 INR Coag (Bld) [Relative time] 2.3 {INR} [facility] Laboratory - Chemistry and C hemistry - challengeOrdered By: Walter Becker on 03-04-2023 ALP [Catalytic activity/Vol] 92 U/L 45-117 [facility] ALT [Catalytic activity/Vol] 25 U/L 16-61 [facility] CO2 [Moles/Vol] 28.0 mmol/L 21.0-32.0 [facility] Globulin (S) [Mass/Vol] 3.0 g/dL 2.2-4.2 [facility] Urea nitrogen/Creatinine [Mass ratio] 33.0 mg/mg 10-20 [facility] Laboratory - CoagulationOrde red By: Walter Becker on 03-04-2023 PT Coag (PPP) [Time] 25.8 s 11.7-14.9 [facility] No Panel InformationOrdered By: Walter Becker on 03-04-2023 Estimated GFR (MDRD) Amer 88 mL/min >60 [facility] Comment on above: GFR Calc Estimated GFR (MDRD) Non-Af Amer 72 mL/min >60 [facility] Comment on above: Non- GFR Calc 25.8 SECONDS 11.7-14.9 [facility] 72 mL/min >60 [facility] 88 mL/min >60 [facility] 33.0 RATIO 10- [facility] 3.0 g/dL 2.2-4.2 [facility] 92 U/L 45-117 [facility] 25 U/L 16- [facility] 28.0 mmol/L 21.0-32.0 [facility] Serum or plasma albumin antoine urement (mass/volume)Ordered By: Walter Becker on 03-04-2023 Albumin [Mass/Vol] 2.8 g/dL 3.2-5.0 [facility] Serum or plasma albumin/glob ulin mass ratioOrdered By: Walter Becker on 03-04-2023 Albumin/Globulin [Mass ratio] 0.9 {ratio} 0.9-2.4 [facility] Serum or plasma calcium antoine urement (mass/volume)Ordered By: Walter Becker on 03-04-2023 Calcium [Mass/Vol] 9.1 mg/dL 8.5-10.1 [facility] Serum or plasma creatinine m easurement (mass/volume)Ordered By: Walter Becker on 03-04-2023 Creatinine [Mass/Vol] 1.06 mg/dL 0.70-1.30 [facility] Comment on above: The validity of the calculated GFR & GFRAA in patients over 70 years has not been determined. Clinical correlation is essential. Serum or plasma urea nitroge n measurement (mass/volume)Ordered By: Walter Becker on 03-04-2023 Urea nitrogen [Mass/Vol] 35 mg/dL 7-18 [facility] Thin prep Papanicolaou smear with manual screeningOrdered By: Walter Becker on 03-04-2023 Thin prep Papanicolaou smear with manual screening 12 U/L 15-37 [facility] Thin prep Papanicolaou smear with manual screening 5 5-15 [facility] Laboratory - CoagulationOrde red By: Walter Becker on 03-01-2023 INR Coag (Bld) [Relative time] 2.2 {INR} [facility] Comment on above: Critical Value > 4.0 No Panel InformationOrdered By: Walter Becker on 03-01-2023 2.2 [facility] Whole blood prothrombin time Ordered By: Walter Becker on 03-01-2023 PT Coag (Bld) [Time] 24.4 s 11.7-14.9 [facility] Blood hemoglobin measurement (mass/volume)Ordered By: Walter Becker on 02-25-2023 Hemoglobin (Bld) [Mass/Vol] 11.0 g/dL 13.0-16. 5 [facility] Hematocrit Auto (Bld) [Volum e fraction]Ordered By: Walter Becker on 02-25-2023 Hematocrit (Bld) [Volume fraction] 36.8 % 40-54 [facility] INR in Blood by Coagulation assayOrdered By: Walter Becker on 02-25-2023 INR Coag (Bld) [Relative time] 2.6 {INR} [facility] Laboratory - CoagulationOrde red By: Walter Becker on 02-25-2023 PT Coag (PPP) [Time] 28.0 s 11.7-14.9 [facility] No Panel InformationOrdered By: Walter Bekcer on 02-25-2023 28.0 SECONDS 11.7-14.9 [facility] Laboratory - CoagulationOrde red By: Walter Becker on 02-22-2023 INR Coag (Bld) [Relative time] 2.6 {INR} [facility] Comment on above: Critical Value > 4.0 No Panel InformationOrdered By: Walter Becker on 02-22-2023 2.6 [facility] Whole blood prothrombin time Ordered By: Walter Becker on 02-22-2023 PT Coag (Bld) [Time] 28.4 s 11.7-14.9 [facility] No Panel InformationOrdered By: Walter Becker on 02-20-2023 2.9 [facility] Whole blood prothrombin time Ordered By: Walter Becker on 02-20-2023 PT Coag (Bld) [Time] 30.7 s 11.7-14.9 [facility] Blood hemoglobin measurement (mass/volume)Ordered By: Walter Becker on 02-18-2023 Hemoglobin (Bld) [Mass/Vol] 8.8 g/dL 13.0-16. 5 [facility] Hematocrit Auto (Bld) [Volum e fraction]Ordered By: Walter Becker on 02-18-2023 Hematocrit (Bld) [Volume fraction] 28.2 % 40-54 [facility] INR in Blood by Coagulation assayOrdered By: Walter Becker on 02-18-2023 INR Coag (Bld) [Relative time] 2.8 {INR} [facility] No Panel InformationOrdered By: Walter Becker on 02-18-2023 29.5 SECONDS 11.7-14.9 [facility] No Panel InformationOrdered By: Walter Becker on 02-14-2023 2.2 [facility] Whole blood prothrombin time Ordered By: Walter Becker on 02-14-2023 PT Coag (Bld) [Time] 24.3 s 11.7-14.9 [facility] Absolute lymphocyte countOrd ered By: Gabriel Giraldo on 02-13-2023 Lymphocytes Auto (Unsp spec) [#/Vol] 0.84 10*3/uL 0.83-4.51 [facility] Basophil percentageOrdered B y: Gabriel Giraldo on 02-13-2023 Basophils (Bld) [#/Vol] 5.4 10*3/uL 4.4-11.0 [facility] Basophils (Bld) [#/Vol] 3.6 10*3/uL 2.0-7.7 [facility] Basophils/100 WBC (Bld) 67.5 % 47-70 [facility] Basophils/100 WBC (Bld) 4.1 % 0-5 [facility] Basophils/100 WBC (Bld) 0.4 % 0-1 [facility] Blood erythrocytes count (nu mber/volume)Ordered By: Gabriel Giraldo on 02-13-2023 RBC (Bld) [#/Vol] 2.76 10*6/uL 4.6-6.2 [facility] Blood hemoglobin measurement (mass/volume)Ordered By: Gabriel Giraldo on 02-13-2023 Hemoglobin (Bld) [Mass/Vol] 7.5 g/dL 13.0-16. 5 [facility] Blood lymphocytes/100 leukoc ytesOrdered By: Gabriel Giraldo on 02-13-2023 Lymphocytes/100 WBC (Bld) 15.7 % 19-41 [facility] Blood monocytes/100 leukocyt esOrdered By: Gabriel Giraldo on 02-13-2023 Monocytes/100 WBC (Bld) 11.2 % 0-10 [facility] Blood platelet mean volumeOr dered By: Gabriel Giraldo on 02-13-2023 Platelet mean volume (Bld) [Entitic vol] 9.2 fL 6.2-12.0 [facility] COVID-19 virus antigen assay Ordered By: Gabriel Giraldo on 02-13-2023 SARS-CoV-2 (COVID-19) Ag IA.rapid Ql (Resp) [facility] SARS-CoV-2 (COVID-19) Ag IA.rapid Ql (Resp) [facility] Determination of erythrocyte mean corpuscular volume (MCV)Ordered By: Gabriel Giraldo on 02-13-2023 MCV (RBC) [Entitic vol] 88.4 fL 80-94 [facility] Glucose Glucometer (BldC) [M ass/Vol]Ordered By: Gabriel Giraldo on 02-13-2023 Glucose [Mass/Vol] 146 mg/dL 74-106 [facility] Hematocrit Auto (Bld) [Volum e fraction]Ordered By: Gabriel Giraldo on 02-13-2023 Hematocrit (Bld) [Volume fraction] 24.4 % 40-54 [facility] MCHC Auto (RBC) [Mass/Vol]Or dered By: Gabriel Giraldo on 02-13-2023 MCHC (RBC) [Mass/Vol] 30.7 g/dL 32-36 [facility] No Panel InformationOrdered By: Gabriel Giraldo on 02-13-2023 27.2 pg 27.0-32.0 [facility] 16.6 % 11.6-14.6 [facility] 54.5 fl 35.1-43.9 [facility] 1.100 % 0.0-0.9 [facility] 0.9 % 0-5 [facility] Platelets bldOrdered By: Elis Giraldo on 02-13-2023 Platelets (Bld) [#/Vol] 194 10*3/uL 150-450 [facility] INR in Blood by Coagulation assayOrdered By: Gabriel Giraldo on 02-12-2023 INR Coag (Bld) [Relative time] 1.6 {INR} [facility] No Panel InformationOrdered By: Smith Leija on 02-12-2023 No growth in 5 days. [facility] No growth in 5 days. [facility] No Panel InformationOrdered By: Gabriel Giraldo on 02-12-2023 19.3 SECONDS 11.7-14.9 [facility] Basophil percentageOrdered B y: Dandy Sauer on 02-11-2023 Basophil percentage 2.2 mmol/L 0.4-2.0 [facility] Basophil percentage 2.8 mmol/L 0.4-2.0 [facility] Basophil percentageOrdered B y: Walter Becker on 02-11-2023 Basophil percentage 168 mg/dL 74-106 [facility] Basophil percentage 135 mmol/L 136-145 [facility] Basophil percentage 3.7 mmol/L 3.5-5.1 [facility] Basophil percentage 103 mmol/L 98-107 [facility] Basophils (Bld) [#/Vol] 10.2 10*3/uL 4.4-11.0 [facility] Blood erythrocytes count (nu mber/volume)Ordered By: Walter Becker on 02-11-2023 RBC (Bld) [#/Vol] 3.16 10*6/uL 4.6-6.2 [facility] Blood hemoglobin measurement (mass/volume)Ordered By: Walter Becker on 02-11-2023 Hemoglobin (Bld) [Mass/Vol] 8.7 g/dL 13.0-16. 5 [facility] Blood platelet mean volumeOr dered By: Walter Becker on 02-11-2023 Platelet mean volume (Bld) [Entitic vol] 9.3 fL 6.2-12.0 [facility] Determination of erythrocyte mean corpuscular volume (MCV)Ordered By: Walter Becker on 02-11-2023 MCV (RBC) [Entitic vol] 87.0 fL 80-94 [facility] Hematocrit Auto (Bld) [Volum e fraction]Ordered By: Walter Becker on 02-11-2023 Hematocrit (Bld) [Volume fraction] 27.5 % 40-54 [facility] INR in Blood by Coagulation assayOrdered By: Walter Becker on 02-11-2023 INR Coag (Bld) [Relative time] 1.5 {INR} [facility] MCHC Auto (RBC) [Mass/Vol]Or dered By: Walter Becker on 02-11-2023 MCHC (RBC) [Mass/Vol] 31.6 g/dL 32-36 [facility] No Panel InformationOrdered By: Walter Becker on 02-11-2023 27.5 pg 27.0-32.0 [facility] 17.3 % 11.6-14.6 [facility] 55.7 fl 35.1-43.9 [facility] 18.2 SECONDS 11.7-14.9 [facility] 67 mL/min >60 [facility] 81 mL/min >60 [facility] 21.1 RATIO 10-20 [facility] 27.0 mmol/L 21.0-32.0 [facility] Platelets bldOrdered By: Crystal Becker on 02-11-2023 Platelets (Bld) [#/Vol] 200 10*3/uL 150-450 [facility] Serum or plasma calcium antoine urement (mass/volume)Ordered By: Walter Becker on 02-11-2023 Calcium [Mass/Vol] 8.7 mg/dL 8.5-10.1 [facility] Serum or plasma creatinine m easurement (mass/volume)Ordered By: Walter Becker on 02-11-2023 Creatinine [Mass/Vol] 1.14 mg/dL 0.70-1.30 [facility] Serum or plasma urea nitroge n measurement (mass/volume)Ordered By: Walter Becker on 02-11-2023 Urea nitrogen [Mass/Vol] 24 mg/dL 7-18 [facility] Thin prep Papanicolaou smear with manual screeningOrdered By: Walter Becker on 02-11-2023 Thin prep Papanicolaou smear with manual screening 5 5-15 [facility] Absolute lymphocyte countOrd ered By: Geremias Carey on 02-10-2023 Lymphocytes Auto (Unsp spec) [#/Vol] 0.46 10*3/uL 0.83-4.51 [facility] Bacteria identified Cx Nom ( U)Ordered By: Geremias Carey on 02-10-2023 Culture, urine Klebsiella pneumonia e sp pneum [facility] Culture, urine Klebsiella pneumonia e sp pneum [facility] Basophil percentageOrdered B y: Geremias Carey on 02-10-2023 Basophil percentage 1.9 mmol/L 0.4-2.0 [facility] Basophil percentage 25-50 SEEN /hpf 0-5 [facility] Basophil percentage 158 mg/dL 74-106 [facility] Basophil percentage 5.6 g/dL 6.4-8.2 [facility] Basophil percentage 0.90 mg/dL 0.20-1.00 [facility] Basophil percentage 136 mmol/L 136-145 [facility] Basophil percentage 3.7 mmol/L 3.5-5.1 [facility] Basophil percentage 103 mmol/L 98-107 [facility] Basophils (Bld) [#/Vol] 10.8 10*3/uL 4.4-11.0 [facility] Basophils (Bld) [#/Vol] 9.2 10*3/uL 2.0-7.7 [facility] Basophils/100 WBC (Bld) 84.8 % 47-70 [facility] Basophils/100 WBC (Bld) 0.2 % 0-5 [facility] Basophils/100 WBC (Bld) 0.1 % 0-1 [facility] Bilirubin Test strip Ql (U)O rdered By: Geremias Carey on 02-10-2023 Bilirubin Ql (U) Negative Negative [facility] Blood erythrocytes count (nu mber/volume)Ordered By: Geremias Carey on 02-10-2023 RBC (Bld) [#/Vol] 3.20 10*6/uL 4.6-6.2 [facility] Blood hemoglobin measurement (mass/volume)Ordered By: Geremias Carey on 02-10-2023 Hemoglobin (Bld) [Mass/Vol] 8.8 g/dL 13.0-16. 5 [facility] Blood lymphocytes/100 leukoc ytesOrdered By: Geremias Carey on 02-10-2023 Lymphocytes/100 WBC (Bld) 4.3 % 19-41 [facility] Blood manual differential co mment interpretation (narrative result)Ordered By: Geremias Carey on 02-10-2023 Manual differential comment Ori (Bld) [Interp] SCANNED [facility] [facility] Blood monocytes/100 leukocyt esOrdered By: Geremias Carey on 02-10-2023 Monocytes/100 WBC (Bld) 9.8 % 0-10 [facility] Blood platelet mean volumeOr dered By: Geremias Carey on 02-10-2023 Platelet mean volume (Bld) [Entitic vol] 9.3 fL 6.2-12.0 [facility] Determination of erythrocyte mean corpuscular volume (MCV)Ordered By: Geremias Carey on 02-10-2023 MCV (RBC) [Entitic vol] 87.8 fL 80-94 [facility] Direct bilirubinOrdered By: Geremias Carey on 02-10-2023 Bilirubin.direct [Mass/Vol] 0.43 mg/dL 0.00-0.3 0 [facility] Hematocrit Auto (Bld) [Volum e fraction]Ordered By: Greemias Carey on 02-10-2023 Hematocrit (Bld) [Volume fraction] 28.1 % 40-54 [facility] INR in Blood by Coagulation assayOrdered By: Geremias Carey on 02-10-2023 INR Coag (Bld) [Relative time] 1.4 {INR} [facility] Influenza virus A and B and SARS-CoV-2 (COVID-19) Ag panel - Upper respiratory specimOrdered By: Geremias Carey on 02-10-2023 SARS-CoV-2 (COVID-19) RNA ANGELY+probe Ql (Resp) [facility] SARS-CoV-2 (COVID-19) RNA ANGELY+probe Ql (Resp) [facility] Ketones Test strip Ql (U)Ord ered By: Geremias Carey on 02-10-2023 Ketones Ql (U) 5 mg/dl Negative [facility] MCHC Auto (RBC) [Mass/Vol]Or dered By: Geremias Carey on 02-10-2023 MCHC (RBC) [Mass/Vol] 31.3 g/dL 32-36 [facility] Mucus LM Ql (Urine sed)Order ed By: Geremias Carey on 02-10-2023 Mucus Ql (Urine sed) 0 SEEN /hpf [facility] Nitrite Test strip Ql (U)Ord ered By: Geremias Carey on 02-10-2023 Nitrite Ql (U) Negative Negative [facility] No Panel InformationOrdered By: Geremias Carey on 02-10-2023 GNR lactose chief technology officer [facility] GNR lactose chief technology officer [facility] 27.5 pg 27.0-32.0 [facility] 17.3 % 11.6-14.6 [facility] 55.2 fl 35.1-43.9 [facility] 0.800 % 0.0-0.9 [facility] 0 % 0-5 [facility] 17.5 SECONDS 11.7-14.9 [facility] 42.1 Seconds 24.1-36.2 [facility] 70 mL/min >60 [facility] 85 mL/min >60 [facility] 66.18 ml/min [facility] 23.9 RATIO 10-20 [facility] 3.3 g/dL 2.2-4.2 [facility] 100 U/L 45-117 [facility] 18 U/L 16-61 [facility] 24.0 mmol/L 21.0-32.0 [facility] Platelets bldOrdered By: Luis Enrique Carey on 02-10-2023 Platelets (Bld) [#/Vol] 189 10*3/uL 150-450 [facility] Protein Test strip Ql (U)Ord ered By: Geremias Carey on 02-10-2023 Protein Ql (U) 100 mg/dl Negative [facility] Serum or plasma albumin antoine urement (mass/volume)Ordered By: Geremias Carey on 02-10-2023 Albumin [Mass/Vol] 2.3 g/dL 3.2-5.0 [facility] Serum or plasma calcium antoine urement (mass/volume)Ordered By: Geremias Carey on 02-10-2023 Calcium [Mass/Vol] 8.3 mg/dL 8.5-10.1 [facility] Serum or plasma creatinine m easurement (mass/volume)Ordered By: Geremias Carey on 02-10-2023 Creatinine [Mass/Vol] 1.09 mg/dL 0.70-1.30 [facility] Serum or plasma urea nitroge n measurement (mass/volume)Ordered By: Geremias Carey on 02-10-2023 Urea nitrogen [Mass/Vol] 26 mg/dL 7-18 [facility] Serum procalcitonin measurem entOrdered By: Geremias Carey on 02-10-2023 Procalcitonin [Mass/Vol] 1.43 ng/mL 0.00-0.09 [facility] Squamous epithelial cells de tection in urine sediment by light microscopyOrdered By: Geremias Carey on 02-10-2023 Epithelial cells.squamous LM Ql (Urine sed) 0 SEEN /hpf 0-5 [facility] Thin prep Papanicolaou smear with manual screeningOrdered By: Geremias Carey on 02-10-2023 Thin prep Papanicolaou smear with manual screening 10 U/L 15-37 [facility] Thin prep Papanicolaou smear with manual screening 9 5-15 [facility] Urine blood detectionOrdered By: Geremias Carey on 02-10-2023 RBC Ql (U) 250 /ul Negative [facility] RBC Ql (U) 25-50 SEEN /hpf 0-5 [facility] Urine clarityOrdered By: Luis Enrique Carey on 02-10-2023 Clarity (U) Sl. Cloudy Clear [facility] Urine color determinationOrd ered By: Geremias Carey on 02-10-2023 Color (U) Yellow Yellow [facility] Urine glucose detectionOrder ed By: Geremias Carey on 02-10-2023 Glucose Ql (U) Normal mg/dl Normal [facility] Urine leukocyte esterase det ection by dipstickOrdered By: Geremias Carey on 02-10-2023 Leukocyte esterase Test strip Ql (U) 500 /ul Negative [facility] Urine pHOrdered By: Geremias torrez on 02-10-2023 pH (U) 5.0 [pH] 5.0 - 8.0 [facility] Urine sediment bacteria coun t by microscopy (number/high power field)Ordered By: Geremias Carey on 02-10-2023 Bacteria LM.HPF (Urine sed) [#/Area] 4 /[HPF] None Seen [facility] Urine specific gravity measu rementOrdered By: Geremias Carey on 02-10-2023 Specific gravity (U) [Rel density] 1.015 1.002-1.03 0 [facility] Urobilinogen Auto test strip Ql (U)Ordered By: Geremias Carey on 02-10-2023 Urobilinogen Ql (U) Normal mg/dl Normal [facility] Blood hemoglobin measurement (mass/volume)Ordered By: Walter Becker on 02-07-2023 Hemoglobin (Bld) [Mass/Vol] 8.8 g/dL 13.0-16. 5 [facility] Hematocrit Auto (Bld) [Volum e fraction]Ordered By: Walter Becker on 02-07-2023 Hematocrit (Bld) [Volume fraction] 29.0 % 40-54 [facility] COVID-19 virus antigen assay Ordered By: Caryl Mcdermott on 02-05-2023 SARS-CoV-2 (COVID-19) Ag IA.rapid Ql (Resp) [facility] SARS-CoV-2 (COVID-19) Ag IA.rapid Ql (Resp) [facility] Glucose Glucometer (BldC) [M ass/Vol]Ordered By: Caryl Mcdermott on 02-05-2023 Glucose [Mass/Vol] 163 mg/dL 74-106 [facility] Absolute lymphocyte countOrd ered By: Yisel Rendon on 02-04-2023 Lymphocytes Auto (Unsp spec) [#/Vol] 1.39 10*3/uL 0.83-4.51 [facility] Basophil percentageOrdered B y: Yisel Rendon on 02-04-2023 Basophil percentage 151 mg/dL 74-106 [facility] Basophil percentage 141 mmol/L 136-145 [facility] Basophil percentage 3.5 mmol/L 3.5-5.1 [facility] Basophil percentage 110 mmol/L 98-107 [facility] Basophils (Bld) [#/Vol] 8.1 10*3/uL 4.4-11.0 [facility] Basophils (Bld) [#/Vol] 5.8 10*3/uL 2.0-7.7 [facility] Basophils/100 WBC (Bld) 71.5 % 47-70 [facility] Basophils/100 WBC (Bld) 2.6 % 0-5 [facility] Basophils/100 WBC (Bld) 0.1 % 0-1 [facility] Blood erythrocytes count (nu mber/volume)Ordered By: Yisel Rendon on 02-04-2023 RBC (Bld) [#/Vol] 3.23 10*6/uL 4.6-6.2 [facility] Blood hemoglobin measurement (mass/volume)Ordered By: Yisel Rendon on 02-04-2023 Hemoglobin (Bld) [Mass/Vol] 8.8 g/dL 13.0-16. 5 [facility] Blood lymphocytes/100 leukoc ytesOrdered By: Yisel Rendon on 02-04-2023 Lymphocytes/100 WBC (Bld) 17.2 % 19-41 [facility] Blood monocytes/100 leukocyt esOrdered By: Yisel Rendon on 02-04-2023 Monocytes/100 WBC (Bld) 6.3 % 0-10 [facility] Blood platelet mean volumeOr dered By: Yisel Rendon on 02-04-2023 Platelet mean volume (Bld) [Entitic vol] 8.8 fL 6.2-12.0 [facility] Determination of erythrocyte mean corpuscular volume (MCV)Ordered By: Yisel Rendon on 02-04-2023 MCV (RBC) [Entitic vol] 89.5 fL 80-94 [facility] Hematocrit Auto (Bld) [Volum e fraction]Ordered By: Yisel Rendon on 02-04-2023 Hematocrit (Bld) [Volume fraction] 28.9 % 40-54 [facility] MCHC Auto (RBC) [Mass/Vol]Or dered By: Yisel Rendon on 02-04-2023 MCHC (RBC) [Mass/Vol] 30.4 g/dL 32-36 [facility] No Panel InformationOrdered By: Yisel Rendon on 02-04-2023 27.2 pg 27.0-32.0 [facility] 17.8 % 11.6-14.6 [facility] 56.6 fl 35.1-43.9 [facility] 2.300 % 0.0-0.9 [facility] 0 % 0-5 [facility] 67 mL/min >60 [facility] 81 mL/min >60 [facility] 63.83 ml/min [facility] 10.6 RATIO 10-20 [facility] 25.0 mmol/L 21.0-32.0 [facility] Platelets bldOrdered By: José Luis Rendon on 02-04-2023 Platelets (Bld) [#/Vol] 341 10*3/uL 150-450 [facility] Serum or plasma calcium antoine urement (mass/volume)Ordered By: Yisel Rendon on 02-04-2023 Calcium [Mass/Vol] 8.4 mg/dL 8.5-10.1 [facility] Serum or plasma creatinine m easurement (mass/volume)Ordered By: Yisel Rendon on 02-04-2023 Creatinine [Mass/Vol] 1.13 mg/dL 0.70-1.30 [facility] Serum or plasma urea nitroge n measurement (mass/volume)Ordered By: Yisel Rendon on 02-04-2023 Urea nitrogen [Mass/Vol] 12 mg/dL 7-18 [facility] Thin prep Papanicolaou smear with manual screeningOrdered By: Yisel Rendon on 02-04-2023 Thin prep Papanicolaou smear with manual screening 6 5-15 [facility] Blood band neutrophil count as percentage of total leukocytesOrdered By: Yisel Rendon on 01-31-2023 Band form neutrophils/100 WBC (Bld) 3 % 0-5 [facility] Blood eosinophils/100 leukoc ytesOrdered By: Yisel Rendon on 01-31-2023 Eosinophils/100 WBC (Bld) 2 % 0-5 [facility] Blood lymphocytes/100 leukoc ytesOrdered By: Yisel Rendon on 01-31-2023 Lymphocytes/100 WBC (Bld) 22 % 19-41 [facility] Blood metamyelocytes/100 yolis kocytesOrdered By: Yisel Rendon on 01-31-2023 Metamyelocytes/100 WBC (Bld) 1 % 0-1 [facility] Blood monocytes/100 leukocyt esOrdered By: Yisel Rendon on 01-31-2023 Monocytes/100 WBC (Bld) 5 % 0-10 [facility] Blood platelet adequacy dete ction by light microscopyOrdered By: Yisel Rendon on 01-31-2023 Platelets LM Ql (Bld) ADEQUATE ADEQ [facility] Blood polychromasia detectio n by light microscopyOrdered By: Yisel Rendon on 01-31-2023 Polychromasia LM Ql (Bld) RARE [facility] Blood segmented neutrophils/ 100 leukocytesOrdered By: Yisel Rendon on 01-31-2023 Segmented neutrophils/100 WBC (Bld) 64 % 47-70 [facility] No Panel InformationOrdered By: Yisel Rendon on 01-31-2023 3 % 0-0 [facility] Review by pathologistOrdered By: Yisel Rendon on 01-31-2023 Pathologist review Ori (Unsp spec) [Interp] Reviewed [facility] Total cell countOrdered By: Yisel Rendon on 01-31-2023 Cells counted Molgen (Bld/Tiss) [#] 100 MANUAL DIFF [facility] Basophil percentageOrdered B y: Yisel Rendon on 01-30-2023 Basophil percentage 148 U/L 87-241 [facility] Blood manual differential co mment interpretation (narrative result)Ordered By: Yisel Rendon on 01-30-2023 Manual differential comment Ori (Bld) [Interp] SCANNED [facility] Hemoglobin in reticulocytes (mass per reticulocyte)Ordered By: Yisel Rendon on 01-30-2023 Hemoglobin (Reticulocytes) [Entitic mass] 22.8 pg 30-35 [facility] Hypochromatic red blood cell detectionOrdered By: Yisel Rendon on 01-30-2023 Hypochromia Ql (Bld) 1+ [facility] Iron measurement (mass/mass) Ordered By: Yisel Rendon on 01-30-2023 Iron (Unsp spec) [Mass/Mass] 28 ug/dL 65-175 [facility] No Panel InformationOrdered By: Yisel Rendon on 01-30-2023 RARE % [facility] 3.53 % 0.5-1.5 [facility] 40.30 % 3.00-15.90 [facility] 635 pg/mL 211-911 [facility] 166 ug/dL 250-450 [facility] Serum or plasma ferritin hank surement (mass/volume)Ordered By: Yisel Rendon on 01-30-2023 Ferritin [Mass/Vol] 138 ng/mL 26-388 [facility] Serum or plasma folate measu rement (mass/volume)Ordered By: Yisel Rendon on 01-30-2023 Folate [Mass/Vol] 4.60 ng/mL 3.1-55.4 [facility] Serum or plasma iron saturat ion measurement (mass fraction)Ordered By: Yisel Rendon on 01-30-2023 Iron saturation [Mass fraction] 16.9 % 15.0-55.0 [facility] No Panel InformationOrdered By: Yisel Rendon on 01-29-2023 RARE [facility] Vancomycin troughOrdered By: Karen Aly on 01-29-2023 Vancomycin trough [Mass/Vol] 7.8 ug/mL 5.0-15.0 [facility] Basophil percentageOrdered B y: Karen Aly on 01-28-2023 Basophil percentage 5.8 g/dL 6.4-8.2 [facility] Basophil percentage 0.70 mg/dL 0.20-1.00 [facility] No Panel InformationOrdered By: Karen Aly on 01-28-2023 3.8 g/dL 2.2-4.2 [facility] 81 U/L 45-117 [facility] 85 U/L 16-61 [facility] Serum or plasma albumin antoine urement (mass/volume)Ordered By: Karen Jermain on 01-28-2023 Albumin [Mass/Vol] 2.0 g/dL 3.2-5.0 [facility] Serum or plasma albumin/glob ulin mass ratioOrdered By: [facility] Jermain on 01-28-2023 Albumin/Globulin [Mass ratio] 0.5 {ratio} 0.9-2.4 [facility] Thin prep Papanicolaou smear with manual screeningOrdered By: [facility] Jermain on 01-28-2023 Thin prep Papanicolaou smear with manual screening 49 U/L 15-37 [facility] Absolute lymphocyte countOrd ered By: Syed Allen on 01-27-2023 Lymphocytes Auto (Unsp spec) [#/Vol] 1.35 10*3/uL 0.83-4.51 [facility] Basophil percentageOrdered B y: Karen Aly on 01-27-2023 Basophil percentage 2.6 mg/dL 2.5-4.9 [facility] Basophil percentageOrdered B y: Syed Alejandro on 01-27-2023 Basophils/100 WBC (Bld) 0.1 % 0-1 [facility] Bilirubin [Mass/Vol] 0.50 mg/dL 0.20-1.00 [facility] Comment on above: For patients on eltr ombopag therapy, use of Dimension [place] TBIL is not recommended. Chloride [Moles/Vol] 111 mmol/L 98-107 [facility] Eosinophils/100 WBC (Bld) 2.9 % 0-5 [facility] Glucose [Mass/Vol] 215 mg/dL 74-106 [facility] Comment on above: Glucose result great er than or equal to 200 mg/dLsuggests DIABETES MELLITUS per A.D.A. criteria. Neutrophils (Bld) [#/Vol] 8.0 10*3/uL 2.0-7.7 [facility] Neutrophils/100 WBC (Bld) 73.8 % 47-70 [facility] Potassium [Moles/Vol] 4.0 mmol/L 3.5-5.1 [facility] Protein [Mass/Vol] 5.3 g/dL 6.4-8.2 [facility] Sodium [Moles/Vol] 140 mmol/L 136-145 [facility] WBC (Bld) [#/Vol] 10.9 10*3/uL 4.4-11.0 [facility] Blood erythrocytes count (nu mber/volume)Ordered By: Syed Allen on 01-27-2023 RBC (Bld) [#/Vol] 2.91 10*6/uL 4.6-6.2 [facility] Blood hemoglobin measurement (mass/volume)Ordered By: Syed Allen on 01-27-2023 Hemoglobin (Bld) [Mass/Vol] 8.2 g/dL 13.0-16. 5 [facility] Blood lymphocytes/100 leukoc ytesOrdered By: Syed Allen on 01-27-2023 Lymphocytes/100 WBC (Bld) 12.4 % 19-41 [facility] Blood monocytes/100 leukocyt esOrdered By: Syed Allen on 01-27-2023 Monocytes/100 WBC (Bld) 8.2 % 0-10 [facility] Blood platelet mean volumeOr dered By: Syed Allen on 01-27-2023 Platelet mean volume (Bld) [Entitic vol] 9.9 fL 6.2-12.0 [facility] Determination of erythrocyte mean corpuscular volume (MCV)Ordered By: Syed Allen on 01-27-2023 MCV (RBC) [Entitic vol] 88.0 fL 80-94 [facility] Hematocrit Auto (Bld) [Volum e fraction]Ordered By: Syed Allen on 01-27-2023 Hematocrit (Bld) [Volume fraction] 25.6 % 40-54 [facility] INR in Blood by Coagulation assayOrdered By: Syed Allen on 01-27-2023 INR Coag (Bld) [Relative time] 1.6 {INR} [facility] Laboratory - Chemistry and C hemistry - challengeOrdered By: Syed Allen on 01-27-2023 ALP [Catalytic activity/Vol] 78 U/L 45-117 [facility] ALT [Catalytic activity/Vol] 81 U/L 16-61 [facility] CO2 [Moles/Vol] 25.0 mmol/L 21.0-32.0 [facility] Globulin (S) [Mass/Vol] 3.5 g/dL 2.2-4.2 [facility] Lipase [Catalytic activity/Vol] 233 U/L 13-75 [facility] Comment on above: Please note:LIPASE r evised reference range effective 22. New Lipase methodology. Expected to produce lower values than the previous assay method. NEW Reference Range: 13 - 75 U/L Urea nitrogen/Creatinine [Mass ratio] 20.4 mg/mg 10-20 [facility] Laboratory - CoagulationOrde red By: Syed Allen on 01-27-2023 PT Coag (PPP) [Time] 19.4 s 11.7-14.9 [facility] Laboratory - Hematology and Cell countsOrdered By: Syed Allen on 01-27-2023 Erythrocyte distribution width (RBC) [Entitic vol] 49.3 fL 35.1-43.9 [facility] Erythrocyte distribution width (RBC) [Ratio] 15.5 % 11.6-14.6 [facility] Immature granulocytes/100 WBC (Bld) 2.600 % 0.0-0.9 [facility] Comment on above: IG% - Immature Granu locytes (promyelocytes, myelocytes and metamyelocytes) > 1% indicates that a LEFT SHIFT is Present. MCH (RBC) [Entitic mass] 28.2 pg 27.0-32.0 [facility] Nucleated RBC/100 WBC (Bld) [Ratio] 0.2 % 0-5 [facility] MCHC Auto (RBC) [Mass/Vol]Or dered By: Syed Allen on 01-27-2023 MCHC (RBC) [Mass/Vol] 32.0 g/dL 32-36 [facility] No Panel InformationOrdered By: Karen Aly on 01-27-2023 Negative Negative [facility] 1.7 mg/dL 1.6-2.6 [facility] No Panel InformationOrdered By: Syed Allen on 01-27-2023 Estimated Creatinine Clearance Calc 50.80 ml/min [facility] Estimated GFR (MDRD) Amer 63 mL/min >60 [facility] Comment on above: GFR Calc Estimated GFR (MDRD) Non-Af Amer 52 mL/min >60 [facility] Comment on above: Non- GFR Calc 19.4 SECONDS 11.7-14.9 [facility] 233 U/L 13-75 [facility] Platelets bldOrdered By: Glenroy Allen on 01-27-2023 Platelets (Bld) [#/Vol] 259 10*3/uL 150-450 [facility] Serum or plasma albumin antoine urement (mass/volume)Ordered By: Syed Allen on 01-27-2023 Albumin [Mass/Vol] 1.8 g/dL 3.2-5.0 [facility] Serum or plasma albumin/glob ulin mass ratioOrdered By: ySed Allen on 01-27-2023 Albumin/Globulin [Mass ratio] 0.5 {ratio} 0.9-2.4 [facility] Serum or plasma calcium antoine urement (mass/volume)Ordered By: Syed Allen on 01-27-2023 Calcium [Mass/Vol] 8.3 mg/dL 8.5-10.1 [facility] Serum or plasma creatinine m easurement (mass/volume)Ordered By: Syed Allen on 01-27-2023 Creatinine [Mass/Vol] 1.42 mg/dL 0.70-1.30 [facility] Comment on above: The validity of the calculated GFR & GFRAA in patients over 70 years has not been determined. Clinical correlation is essential. Serum or plasma urea nitroge n measurement (mass/volume)Ordered By: Syed Allen on 01-27-2023 Urea nitrogen [Mass/Vol] 29 mg/dL 7-18 [facility] Serum procalcitonin measurem entOrdered By: Karen Aly on 01-27-2023 Procalcitonin [Mass/Vol] 0.12 ng/mL 0.00-0.09 [facility] Thin prep Papanicolaou smear with manual screeningOrdered By: Syed Allen on 01-27-2023 Thin prep Papanicolaou smear with manual screening 68 U/L 15-37 [facility] Thin prep Papanicolaou smear with manual screening 4 5-15 [facility] Urine Legionella pneumophila antigen detectionOrdered By: Karen Aly on 01-27-2023 L. pneumophila Ag Ql (U) [facility] Absolute lymphocyte countOrd ered By: Ryan Tinoco on 01-26-2023 Lymphocytes Auto (Unsp spec) [#/Vol] 0.69 10*3/uL 0.83-4.51 [facility] Basophil percentageOrdered B y: Karen White on 01-26-2023 Basophil percentage 2.4 mg/dL 2.5-4.9 [facility] Basophil percentageOrdered B y: Ryan Tinoco on 01-26-2023 Basophil percentage 235 mg/dL 74-106 [facility] Basophil percentage 143 mmol/L 136-145 [facility] Basophil percentage 3.8 mmol/L 3.5-5.1 [facility] Basophil percentage 114 mmol/L 98-107 [facility] Basophils (Bld) [#/Vol] 8.5 10*3/uL 4.4-11.0 [facility] Basophils (Bld) [#/Vol] 6.7 10*3/uL 2.0-7.7 [facility] Basophils/100 WBC (Bld) 0.1 % 0-1 [facility] Basophils/100 WBC (Bld) 78.4 % 47-70 [facility] Basophils/100 WBC (Bld) 1.6 % 0-5 [facility] Chloride [Moles/Vol] 114 mmol/L 98-107 [facility] Eosinophils/100 WBC (Bld) 1.6 % 0-5 [facility] Glucose [Mass/Vol] 235 mg/dL 74-106 [facility] Comment on above: Glucose result great er than or equal to 200 mg/dLsuggests DIABETES MELLITUS per A.D.A. criteria. Neutrophils (Bld) [#/Vol] 6.7 10*3/uL 2.0-7.7 [facility] Neutrophils/100 WBC (Bld) 78.4 % 47-70 [facility] Potassium [Moles/Vol] 3.8 mmol/L 3.5-5.1 [facility] Sodium [Moles/Vol] 143 mmol/L 136-145 [facility] WBC (Bld) [#/Vol] 8.5 10*3/uL 4.4-11.0 [facility] Blood erythrocytes count (nu mber/volume)Ordered By: Ryan Tinoco on 01-26-2023 RBC (Bld) [#/Vol] 3.06 10*6/uL 4.6-6.2 [facility] Blood hemoglobin measurement (mass/volume)Ordered By: Ryan Tinoco on 01-26-2023 Hemoglobin (Bld) [Mass/Vol] 8.6 g/dL 13.0-16. 5 [facility] Blood lymphocytes/100 leukoc ytesOrdered By: Ryan Tinoco on 01-26-2023 Lymphocytes/100 WBC (Bld) 8.1 % 19-41 [facility] Blood monocytes/100 leukocyt esOrdered By: Ryan Tinoco on 01-26-2023 Monocytes/100 WBC (Bld) 9.6 % 0-10 [facility] Blood platelet mean volumeOr dered By: Ryan Tinoco on 01-26-2023 Platelet mean volume (Bld) [Entitic vol] 9.9 fL 6.2-12.0 [facility] COVID-19 virus antigen assay Ordered By: Ryan Tinoco on 01-26-2023 SARS-CoV-2 (COVID-19) Ag IA.rapid Ql (Resp) [facility] SARS-CoV-2 (COVID-19) Ag IA.rapid Ql (Resp) [facility] Determination of erythrocyte mean corpuscular volume (MCV)Ordered By: Ryan Tinoco on 01-26-2023 MCV (RBC) [Entitic vol] 88.6 fL 80-94 [facility] Glucose Glucometer (BldC) [M ass/Vol]Ordered By: Ryan Tinoco on 01-26-2023 Glucose [Mass/Vol] 230 mg/dL 74-106 [facility] Comment on above: MANAGEMENT OF PATIEN T CARE PER NURSING PROTOCOL Hematocrit Auto (Bld) [Volum e fraction]Ordered By: Ryan Tinoco on 01-26-2023 Hematocrit (Bld) [Volume fraction] 27.1 % 40-54 [facility] Laboratory - Chemistry and C hemistry - challengeOrdered By: Ryan Tinoco on 01-26-2023 CO2 [Moles/Vol] 23.0 mmol/L 21.0-32.0 [facility] Urea nitrogen/Creatinine [Mass ratio] 18.8 mg/mg 10- [facility] Laboratory - Chemistry and C hemistry - challengeOrdered By: Karen Aly on 01-26-2023 Magnesium [Mass/Vol] 1.8 mg/dL 1.6-2.6 [facility] - Hematology and Cell countsOrdered By: Ryan Tinoco on 01-26-2023 Erythrocyte distribution width (RBC) [Entitic vol] 50.6 fL 35.1-43.9 [facility] Erythrocyte distribution width (RBC) [Ratio] 15.9 % 11.6-14.6 [facility] Immature granulocytes/100 WBC (Bld) 2.200 % 0.0-0.9 [facility] Comment on above: IG% - Immature Granu locytes (promyelocytes, myelocytes and metamyelocytes) > 1% indicates that a LEFT SHIFT is Present. MCH (RBC) [Entitic mass] 28.1 pg 27.0-32.0 [facility] Nucleated RBC/100 WBC (Bld) [Ratio] 0.5 % 0- [facility] MCHC Auto (RBC) [Mass/Vol]Or dered By: Ryan Tinoco on 01-26-2023 MCHC (RBC) [Mass/Vol] 31.7 g/dL 32-36 [facility] No Panel InformationOrdered By: Ryan Tinoco on 01-26-2023 Estimated Creatinine Clearance Calc 48.41 ml/min [facility] Estimated GFR (MDRD) Amer 59 mL/min >60 [facility] Comment on above: GFR Calc Estimated GFR (MDRD) Non-Af Amer 49 mL/min >60 [facility] Comment on above: Non- GFR Calc 28.1 pg 27.0-32.0 [facility] 15.9 % 11.6-14.6 [facility] 50.6 fl 35.1-43.9 [facility] 2.200 % 0.0-0.9 [facility] 0.5 % 0-5 [facility] 49 mL/min >60 [facility] 59 mL/min >60 [facility] 48.41 ml/min [facility] 18.8 RATIO 05-03 [facility] 23.0 mmol/L 21.0-32.0 [facility] No Panel InformationOrdered By: Karen Aly on 01-26-2023 1.8 mg/dL 1.6-2.6 [facility] Platelets bldOrdered By: Jaziel Tinoco on 01-26-2023 Platelets (Bld) [#/Vol] 217 10*3/uL 150-450 [facility] Serum or plasma calcium antoine urement (mass/volume)Ordered By: Ryan Tinoco on 01-26-2023 Calcium [Mass/Vol] 8.5 mg/dL 8.5-10.1 [facility] Serum or plasma creatinine m easurement (mass/volume)Ordered By: Ryan Tinoco on 01-26-2023 Creatinine [Mass/Vol] 1.49 mg/dL 0.70-1.30 [facility] Comment on above: The validity of the calculated GFR & GFRAA in patients over 70 years has not been determined. Clinical correlation is essential. Serum or plasma urea nitroge n measurement (mass/volume)Ordered By: Ryan Tinoco on 01-26-2023 Urea nitrogen [Mass/Vol] 28 mg/dL 7-18 [facility] Thin prep Papanicolaou smear with manual screeningOrdered By: Ryan Tinoco on 01-26-2023 Thin prep Papanicolaou smear with manual screening 6 5-15 [facility] INR in Blood by Coagulation assayOrdered By: Ryan Tinoco on 01-25-2023 INR Coag (Bld) [Relative time] 1.6 {INR} [facility] Laboratory - CoagulationOrde red By: Ryan Tinoco on 01-25-2023 PT Coag (PPP) [Time] 19.1 s 11.7-14.9 [facility] No Panel InformationOrdered By: Ryan Tinoco on 01-25-2023 19.1 SECONDS 11.7-14.9 [facility] Albumin Elph [Mass/Vol]Order ed By: Liu Hackett on 01-22-2023 Albumin [Mass/Vol] 2.5 g/dL 2.9-4.4 [facility] Aldolase ser/plasOrdered By: Liu Hackett on 07-11-2023 Aldolase [Catalytic activity/Vol] 1.5 mU/mL 3.3-10.3 [facility] Comment on above: Performed at: - [address] [id number] Director: Ernie Jacob PhD, Phone: [phone] at: [facility] [address] [id number] Director: Lindsay Kearns MD, Phone: [phone] Atypical perinuclear antineu trophil cytoplasmic antibodies measurementOrdered By: Liu Hackett on 01-22-2023 Neutrophil cytoplasmic Ab.perinuclear.atypical IF (S) [Titer] <1:20 titer Neg:<1:20 [facility] Comment on above: The atypical pANCA p attern has been observed in asignificant percentage of patients with ulcerative colitis,primary sclerosing cholangitis and autoimmune hepatitis. Basophil percentageOrdered B y: Liu Hackett on 01-22-2023 Basophil percentage < 0.2 AI 0.0-0.9 [facility] Basophil percentage 3.4 mmol/L 0.4-2.0 [facility] Basophil percentage 136 U/L 87-241 [facility] Lactate [Moles/Vol] 3.4 mmol/L 0.4-2.0 [facility] Comment on above: Critical Result(s) C alled at: 12:30:42 01/22/2023 by: Aruna Morales. Inocencio Martin RN (ICU). Results read back by same. LDH [Catalytic activity/Vol] 136 U/L 87-241 [facility] Blood polychromasia detectio n by light microscopyOrdered By: Jesus Burnham on 01-22-2023 Polychromasia LM Ql (Bld) 1+ [facility] Interpretation of serum or p lasma protein pattern by immunofixation (narrative resultOrdered By: Liu Hackett on 01-22-2023 Protein Fractions Immunofixation Ori [Interp] See comment [facility] Comment on above: NOT OBSERVED Laboratory - Chemistry and C hemistry - challengeOrdered By: Liu Hackett on 01-22-2023 CK [Catalytic activity/Vol] 31 U/L 39-308 [facility] Laboratory - Hematology and Cell countsOrdered By: Jesus Burnham on 01-22-2023 Anisocytosis Ql (Bld) 1+ [facility] No Panel InformationOrdered By: Liu Hackett on 01-22-2023 Addendum Document Comment . [facility] Comment on above: Protein electrophore sis scan will follow via computer,mail, or shipfitters supervisor delivery. Centromere B Antibody <0.2 AI 0.0-0.9 [facility] Immunoglobulin E 399 IU/mL 6-495 [facility] Immunoglobulin G4 8 mg/dL 2-96 [facility] DEAN OF ADMISSIONS Antibody <0.2 AI 0.0-0.9 [facility] 31 U/L 39-308 [facility] 8 mg/dL 2-96 [facility] 399 IU/mL 6-495 [facility] <0.2 AI 0.0-0.9 [facility] No Panel InformationOrdered By: Jesus Burnham on 01-22-2023 1+ [facility] Review by pathologistOrdered By: Jesus Burnham on 01-22-2023 Pathologist review Ori (Unsp spec) [Interp] Reviewed [facility] Comment on above: Previous reported re sult: Corie sr Edited by: KEN on 01/23/23:1008Neutrophilic leukocytosis with left shift.Normocytic anemia.Clinical correlation necessary.Evaristo Dela Cruz M.D. 01/23/23 AMENDED REPORT 01/23/23 1008 PATH REV previously reported as: Corie sr Serum DNA double strand anti body assay (units/volume)Ordered By: Liu Hackett on 01-22-2023 DNA double strand Ab Qn (S) [IU]/mL 0-9 [facility] Comment on above: Negative <5 Equivoca l 5 - 9 Positive >9 Serum IgG subclass 1 measure ment (mass/volume)Ordered By: Liu Hackett on 01-22-2023 IgG subclass 1 (S) [Mass/Vol] 237 mg/dL 248-810 [facility] Serum IgG subclass 2 measure ment (mass/volume)Ordered By: Liu Hackett on 01-22-2023 IgG subclass 2 (S) [Mass/Vol] 115 mg/dL 130-555 [facility] Serum IgG subclass 3 measure ment (mass/volume)Ordered By: Liu Hackett on 01-22-2023 IgG subclass 3 (S) [Mass/Vol] 20 mg/dL 15-102 [facility] Serum Kelsey-1 antibody assay (u nits/volume)Ordered By: Liu Hackett on 01-22-2023 Kelsey-1 extractable nuclear Ab Qn (S) <0.2 AI 0.0-0.9 [facility] Serum Scl-70 extractable nuc lear antibody assay (units/volume)Ordered By: Liu Hackett on 01-22-2023 SCL-70 extractable nuclear Ab Qn (S) <0.2 AI 0.0-0.9 [facility] Serum Martinez extractable nucl ear antibody detectionOrdered By: Liu Hackett on 01-22-2023 Martinez extractable nuclear Ab Ql (S) <0.2 AI 0.0-0.9 [facility] Serum [id number] measu rement by electrophoresisOrdered By: Liu Hackett on 01-22-2023 Alpha 1 globulin Elph [Mass/Vol] 0.2 g/dL 0.0-0.4 [facility] Alpha 1 globulin Elph [Mass/Vol] 0.6 g/dL 0.4-1.0 [facility] Serum classic neutrophil cyt oplasmic antibody assay (units/volume)Ordered By: Liu Hackett on 01-22-2023 Neutrophil cytoplasmic Ab.classic Qn (S) <1:20 titer Neg:<1:20 [facility] Serum globulin measurement ( mass/volume)Ordered By: Liu Hackett on 01-22-2023 Globulin (S) [Mass/Vol] 1.9 g/dL 2.2-3.9 [facility] Serum or plasma IgA measurem ent (mass/volume)Ordered By: Liu Hackett on 01-22-2023 IgA [Mass/Vol] 194 mg/dL 61-437 [facility] Serum or plasma IgG measurem ent (mass/volume)Ordered By: Liu Hackett on 01-22-2023 IgG [Mass/Vol] 417 mg/dL 603-1613 [facility] IgG [Mass/Vol] Not Reportable [facility] Serum or plasma IgM measurem ent (mass/volume)Ordered By: Liu Hackett on 01-22-2023 IgM [Mass/Vol] 15 mg/dL 15-143 [facility] Comment on above: Result confirmed on concentration. Serum or plasma beta globuli n measurement by electrophoresis (mass/volume)Ordered By: Liu Hackett on 01-22-2023 Beta globulin Elph [Mass/Vol] 0.7 g/dL 0.7-1.3 [facility] Serum or plasma gamma globul in measurement by electrophoresis (mass/volume)Ordered By: Liu Hackett on 01-22-2023 Gamma globulin Elph [Mass/Vol] 0.3 g/dL 0.4-1.8 [facility] Serum or plasma immunoelectr ophoresis interpretation (nominal result)Ordered By: Liu Hackett on 01-22-2023 Interpretation IEP [Interp] Comment . [facility] Comment on above: No monoclonality det ected. Serum perinuclear neutrophil cytoplasmic antibody titer by immunofluorescenceOrdered By: Liu Hackett on 01-22-2023 Neutrophil cytoplasmic Ab.perinuclear IF (S) [Titer] <1:20 titer Neg:<1:20 [facility] Comment on above: The presence of posi tive fluorescence exhibiting P-ANCA orC-ANCA patterns alone is not specific for the diagnosis ofWegener's Granulomatosis (WG) or microscopic polyangiitis.Decisions about treatment should not be based solely onANCA IFA results. The [employer] Consensusrecommends follow up testing of positive sera with both ID-3 and MPO-ANCA enzyme immunoassays. As many as 5% serumsamples are positive only by EIA. Ref. AM J Clin Pwkbgq4368;111:507-513. Thin prep Papanicolaou smear with manual screeningOrdered By: Liu Hackett on 01-22-2023 Thin prep Papanicolaou smear with manual screening 1.4 0.7-1.7 [facility] Total protein bloodOrdered B y: Liu Hackett on 01-22-2023 Protein [Mass/Vol] 4.4 g/dL 6.0-8.5 [facility] Absolute lymphocyte countOrd ered By: Dandy Sauer on 01-21-2023 Lymphocytes Auto (Unsp spec) [#/Vol] 1.69 10*3/uL 0.83-4.51 [facility] Basophil percentageOrdered B y: Dandy Sauer on 01-21-2023 Basophil percentage 0-5 SEEN /hpf 0-5 [facility] Basophil percentage 5.4 g/dL 6.4-8.2 [facility] Basophil percentage 0.30 mg/dL 0.20-1.00 [facility] Basophils/100 WBC (Bld) 0.3 % 0-1 [facility] Bilirubin [Mass/Vol] 0.30 mg/dL 0.20-1.00 [facility] Comment on above: For patients on eltr ombopag therapy, use of Dimension [place] TBIL is not recommended. Chloride [Moles/Vol] 109 mmol/L 98-107 [facility] Eosinophils/100 WBC (Bld) 0.0 % 0-5 [facility] Glucose [Mass/Vol] 248 mg/dL 74-106 [facility] Comment on above: Glucose result great er than or equal to 200 mg/dLsuggests DIABETES MELLITUS per A.D.A. criteria. Lactate [Moles/Vol] 7.9 mmol/L 0.4-2.0 [facility] Comment on above: Critical Result(s) C alled at: 09:48:37 01/21/2023 by: Aruna Morales to Shwetha. Results read back by same. Neutrophils (Bld) [#/Vol] 19.7 10*3/uL 2.0-7.7 [facility] Neutrophils/100 WBC (Bld) 87.8 % 47-70 [facility] Potassium [Moles/Vol] 5.2 mmol/L 3.5-5.1 [facility] Protein [Mass/Vol] 5.4 g/dL 6.4-8.2 [facility] Sodium [Moles/Vol] 138 mmol/L 136-145 [facility] WBC (Bld) [#/Vol] 22.4 10*3/uL 4.4-11.0 [facility] Bilirubin Test strip Ql (U)O rdered By: Dadny Sauer on 07-10-2023 Bilirubin Ql (U) 1 mg/dL Negative [facility] Comment on above: COLOR OF URINE MAY A FFECT DIPSTICK RESULTS. Blood erythrocytes count (nu mber/volume)Ordered By: Dandy Sauer on 01-21-2023 RBC (Bld) [#/Vol] 3.96 10*6/uL 4.6-6.2 [facility] Blood hemoglobin measurement (mass/volume)Ordered By: Dandy Sauer on 01-21-2023 Hemoglobin (Bld) [Mass/Vol] 10.7 g/dL 13.0-16. 5 [facility] Blood lymphocytes/100 leukoc ytesOrdered By: Dandy Sauer on 01-21-2023 Lymphocytes/100 WBC (Bld) 7.5 % 19-41 [facility] Blood monocytes/100 leukocyt esOrdered By: Dandy Sauer on 01-21-2023 Monocytes/100 WBC (Bld) 2.4 % 0-10 [facility] Blood platelet mean volumeOr dered By: Dandy Sauer on 01-21-2023 Platelet mean volume (Bld) [Entitic vol] 10.7 fL 6.2-12.0 [facility] Determination of erythrocyte mean corpuscular volume (MCV)Ordered By: Dandy Sauer on 01-21-2023 MCV (RBC) [Entitic vol] 86.6 fL 80-94 [facility] Hematocrit Auto (Bld) [Volum e fraction]Ordered By: Dandy Sauer on 01-21-2023 Hematocrit (Bld) [Volume fraction] 34.3 % 40-54 [facility] INR in Blood by Coagulation assayOrdered By: Dandy Sauer on 01-21-2023 INR Coag (Bld) [Relative time] 4.2 {INR} [facility] Comment on above: CRITICAL VALUE VERIF IED. CALLED TO EVANS MARI (ER)01/21/23 1011 Zachary DurantRESULTS READ BACK BY SAME. Ketones Test strip Ql (U)Ord ered By: Dandy Sauer on 01-21-2023 Ketones Ql (U) 15 mg/dl Negative [facility] Laboratory - Chemistry and C hemistry - challengeOrdered By: Dandy Sauer on 01-21-2023 ALP [Catalytic activity/Vol] 76 U/L 45-117 [facility] ALT [Catalytic activity/Vol] 25 U/L 16-61 [facility] CO2 [Moles/Vol] 12.0 mmol/L 21.0-32.0 [facility] Globulin (S) [Mass/Vol] 2.7 g/dL 2.2-4.2 [facility] Urea nitrogen/Creatinine [Mass ratio] 62.8 mg/mg 10-20 [facility] Laboratory - CoagulationOrde red By: Dandy Sauer on 01-21-2023 PT Coag (PPP) [Time] 41.4 s 11.7-14.9 [facility] Laboratory - Hematology and Cell countsOrdered By: Dandy Sauer on 01-21-2023 Erythrocyte distribution width (RBC) [Entitic vol] 46.6 fL 35.1-43.9 [facility] Erythrocyte distribution width (RBC) [Ratio] 14.7 % 11.6-14.6 [facility] Immature granulocytes/100 WBC (Bld) 2.000 % 0.0-0.9 [facility] Comment on above: IG% - Immature Granu locytes (promyelocytes, myelocytes and metamyelocytes) > 1% indicates that a LEFT SHIFT is Present. MCH (RBC) [Entitic mass] 27.0 pg 27.0-32.0 [facility] Nucleated RBC/100 WBC (Bld) [Ratio] 0 % 0-5 [facility] Lower GI hemoglobin IA Ql (S tl)Ordered By: Dandy Sauer on 01-21-2023 Stool gastrointestinal hemoglobin detection by immunologic method Positive [facility] Stool Occult Blood (KLAUS) Positive [facility] Stool gastrointestinal hemoglobin detection by immunologic method Positive [facility] MCHC Auto (RBC) [Mass/Vol]Or dered By: Dandy Sauer on 01-21-2023 MCHC (RBC) [Mass/Vol] 31.2 g/dL 32-36 [facility] Mucus LM Ql (Urine sed)Order ed By: Dandy Sauer on 01-21-2023 Mucus Ql (Urine sed) 0 SEEN /hpf [facility] Nitrite Test strip Ql (U)Ord ered By: Dandy Sauer on 01-21-2023 Nitrite Ql (U) Negative Negative [facility] No Panel InformationOrdered By: Dandy Sauer on 01-21-2023 Estimated Creatinine Clearance Calc 36.25 ml/min [facility] Estimated GFR (MDRD) Amer 42 mL/min >60 [facility] Comment on above: GFR Calc Estimated GFR (MDRD) Non-Af Amer 35 mL/min >60 [facility] Comment on above: Non- GFR Calc Troponin I High Sensitivity 23 pg/mL 3.0-78.0 [facility] Comment on above: Please Note: New Thania t Units and Gender Specific Reference Ranges. For more information see Policy Stat Procedure [place] High Sensitivity Troponin (TNIH) and attachments. 23 pg/mL 3.0-78.0 [facility] 76 U/L 45-117 [facility] 25 U/L 16-61 [facility] Platelets bldOrdered By: Renetta Sauer on 01-21-2023 Platelets (Bld) [#/Vol] 389 10*3/uL 150-450 [facility] Protein Test strip Ql (U)Ord ered By: Dandy Sauer on 01-21-2023 Protein Ql (U) 15 mg/dl Negative [facility] Serum or plasma albumin antoine urement (mass/volume)Ordered By: Dandy Sauer on 01-21-2023 Albumin [Mass/Vol] 2.7 g/dL 3.2-5.0 [facility] Serum or plasma albumin/glob ulin mass ratioOrdered By: Dandy Sauer on 01-21-2023 Albumin/Globulin [Mass ratio] 1.0 {ratio} 0.9-2.4 [facility] Serum or plasma calcium antoine urement (mass/volume)Ordered By: Dandy Sauer on 01-21-2023 Calcium [Mass/Vol] 9.7 mg/dL 8.5-10.1 [facility] Serum or plasma creatinine m easurement (mass/volume)Ordered By: Dandy Sauer on 01-21-2023 Creatinine [Mass/Vol] 1.99 mg/dL 0.70-1.30 [facility] Comment on above: The validity of the calculated GFR & GFRAA in patients over 70 years has not been determined. Clinical correlation is essential. Serum or plasma urea nitroge n measurement (mass/volume)Ordered By: Dandy Sauer on 01-21-2023 Urea nitrogen [Mass/Vol] 125 mg/dL 7-18 [facility] Comment on above: Critical Result(s) C alled at: 09:53:00 01/21/2023 by: Aruna Morales to Shwetha. Results read back by same. Squamous epithelial cells de tection in urine sediment by light microscopyOrdered By: Dandy Sauer on 01-21-2023 Epithelial cells.squamous LM Ql (Urine sed) 0-5 SEEN /hpf 0-5 [facility] Thin prep Papanicolaou smear with manual screeningOrdered By: Dandy Sauer on 01-21-2023 Thin prep Papanicolaou smear with manual screening 9 U/L 15-37 [facility] Thin prep Papanicolaou smear with manual screening 17 5-15 [facility] Urine blood detectionOrdered By: Dandy Sauer on 01-21-2023 RBC Ql (U) Negative Negative [facility] RBC Ql (U) 0 SEEN /hpf 0-5 [facility] Urine clarityOrdered By: Renetta Sauer on 01-21-2023 Clarity (U) Clear Clear [facility] Urine color determinationOrd ered By: Dandy Sauer on 01-21-2023 Color (U) Yellow Yellow [facility] Urine glucose detectionOrder ed By: Dandy Sauer on 01-21-2023 Glucose Ql (U) 100 mg/dl Normal [facility] Urine leukocyte esterase det ection by dipstickOrdered By: Dandy Sauer on 01-21-2023 Leukocyte esterase Test strip Ql (U) Negative Negative [facility] Urine pHOrdered By: Dandy Sauer on 01-21-2023 pH (U) 5.0 [pH] 5.0 - 8.0 [facility] Urine sediment bacteria coun t by microscopy (number/high power field)Ordered By: Dandy Sauer on 01-21-2023 Bacteria LM.HPF (Urine sed) [#/Area] 0 /[HPF] None Seen [facility] Urine specific gravity measu rementOrdered By: Dandy Sauer on 01-21-2023 Specific gravity (U) [Rel density] 1.020 1.002-1.03 0 [facility] Urobilinogen Auto test strip Ql (U)Ordered By: Dandy Sauer on 01-21-2023 Urobilinogen Ql (U) Normal mg/dl Normal [facility] Glucose Glucometer (BldC) [M ass/Vol]Ordered By: Gabriel Giraldo on 01-08-2023 Glucose [Mass/Vol] 201 mg/dL 74-106 [facility] Comment on above: MANAGEMENT OF PATIEN T CARE PER NURSING PROTOCOL Absolute lymphocyte countOrd ered By: Karen Aly on 01-07-2023 Lymphocytes Auto (Unsp spec) [#/Vol] 1.83 10*3/uL 0.83-4.51 [facility] Basophil percentageOrdered B y: Karen Aly on 01-07-2023 Basophil percentage 121 mg/dL 74-106 [facility] Basophil percentage 6.0 g/dL 6.4-8.2 [facility] Basophil percentage 0.70 mg/dL 0.20-1.00 [facility] Basophil percentage 138 mmol/L 136-145 [facility] Basophil percentage 4.1 mmol/L 3.5-5.1 [facility] Basophil percentage 106 mmol/L 98-107 [facility] Basophils (Bld) [#/Vol] 9.3 10*3/uL 4.4-11.0 [facility] Basophils (Bld) [#/Vol] 6.4 10*3/uL 2.0-7.7 [facility] Basophils/100 WBC (Bld) 0.6 % 0-1 [facility] Basophils/100 WBC (Bld) 69.0 % 47-70 [facility] Basophils/100 WBC (Bld) 2.4 % 0-5 [facility] Bilirubin [Mass/Vol] 0.70 mg/dL 0.20-1.00 [facility] Comment on above: For patients on eltr ombopag therapy, use of Dimension [place] TBIL is not recommended. Chloride [Moles/Vol] 106 mmol/L 98-107 [facility] Eosinophils/100 WBC (Bld) 2.4 % 0-5 [facility] Glucose [Mass/Vol] 121 mg/dL 74-106 [facility] Comment on above: Fasting Glucose resu lt from 100 to 125 mg/dL suggests IMPAIRED HOMEOSTASIS per A.D.A. criteria. Neutrophils (Bld) [#/Vol] 6.4 10*3/uL 2.0-7.7 [facility] Neutrophils/100 WBC (Bld) 69.0 % 47-70 [facility] Potassium [Moles/Vol] 4.1 mmol/L 3.5-5.1 [facility] Protein [Mass/Vol] 6.0 g/dL 6.4-8.2 [facility] Sodium [Moles/Vol] 138 mmol/L 136-145 [facility] WBC (Bld) [#/Vol] 9.3 10*3/uL 4.4-11.0 [facility] Blood erythrocytes count (nu mber/volume)Ordered By: Karen Aly on 01-07-2023 RBC (Bld) [#/Vol] 4.90 10*6/uL 4.6-6.2 [facility] Blood hemoglobin measurement (mass/volume)Ordered By: Karen Aly on 01-07-2023 Hemoglobin (Bld) [Mass/Vol] 13.1 g/dL 13.0-16. 5 [facility] Blood lymphocytes/100 leukoc ytesOrdered By: Karen Aly on 01-07-2023 Lymphocytes/100 WBC (Bld) 19.8 % 19-41 [facility] Blood monocytes/100 leukocyt esOrdered By: Karen Aly on 01-07-2023 Monocytes/100 WBC (Bld) 7.2 % 0-10 [facility] Blood platelet mean volumeOr dered By: Karen Aly on 01-07-2023 Platelet mean volume (Bld) [Entitic vol] 9.1 fL 6.2-12.0 [facility] Determination of erythrocyte mean corpuscular volume (MCV)Ordered By: Karen Aly on 01-07-2023 MCV (RBC) [Entitic vol] 83.5 fL 80-94 [facility] Hematocrit Auto (Bld) [Volum e fraction]Ordered By: Karen Aly on 01-07-2023 Hematocrit (Bld) [Volume fraction] 40.9 % 40-54 [facility] INR in Blood by Coagulation assayOrdered By: Karen Aly on 01-07-2023 INR Coag (Bld) [Relative time] 2.2 {INR} [facility] Laboratory - Chemistry and C hemistry - challengeOrdered By: Karen Aly on 01-07-2023 ALP [Catalytic activity/Vol] 90 U/L 45-117 [facility] ALT [Catalytic activity/Vol] 18 U/L 16-61 [facility] CO2 [Moles/Vol] 24.0 mmol/L 21.0-32.0 [facility] Globulin (S) [Mass/Vol] 3.1 g/dL 2.2-4.2 [facility] Urea nitrogen/Creatinine [Mass ratio] 23.0 mg/mg 10-20 [facility] Laboratory - CoagulationOrde red By: Karen Aly on 01-07-2023 PT Coag (PPP) [Time] 24.8 s 11.7-14.9 [facility] Laboratory - Hematology and Cell countsOrdered By: Karen Aly on 01-07-2023 Erythrocyte distribution width (RBC) [Entitic vol] 43.7 fL 35.1-43.9 [facility] Erythrocyte distribution width (RBC) [Ratio] 14.5 % 11.6-14.6 [facility] Immature granulocytes/100 WBC (Bld) 1.000 % 0.0-0.9 [facility] Comment on above: IG% - Immature Granu locytes (promyelocytes, myelocytes and metamyelocytes) > 1% indicates that a LEFT SHIFT is Present. MCH (RBC) [Entitic mass] 26.7 pg 27.0-32.0 [facility] Nucleated RBC/100 WBC (Bld) [Ratio] 0 % 0-5 [facility] MCHC Auto (RBC) [Mass/Vol]Or dered By: Karen Aly on 01-07-2023 MCHC (RBC) [Mass/Vol] 32.0 g/dL 32-36 [facility] No Panel InformationOrdered By: Kraen Aly on 01-07-2023 Estimated Creatinine Clearance Calc 63.83 ml/min [facility] Estimated GFR (MDRD) Amer 81 mL/min >60 [facility] Comment on above: GFR Calc Estimated GFR (MDRD) Non-Af Amer 67 mL/min >60 [facility] Comment on above: Non- GFR Calc 26.7 pg 27.0-32.0 [facility] 14.5 % 11.6-14.6 [facility] 43.7 fl 35.1-43.9 [facility] 1.000 % 0.0-0.9 [facility] 0 % 0-5 [facility] 24.8 SECONDS 11.7-14.9 [facility] 67 mL/min >60 [facility] 81 mL/min >60 [facility] 63.83 ml/min [facility] 23.0 RATIO 10-20 [facility] 3.1 g/dL 2.2-4.2 [facility] 90 U/L 45-117 [facility] 18 U/L 16-61 [facility] 24.0 mmol/L 21.0-32.0 [facility] Platelets bldOrdered By: Dede Aly on 01-07-2023 Platelets (Bld) [#/Vol] 216 10*3/uL 150-450 [facility] Serum or plasma albumin antoine urement (mass/volume)Ordered By: Karen Aly on 01-07-2023 Albumin [Mass/Vol] 2.9 g/dL 3.2-5.0 [facility] Serum or plasma albumin/glob ulin mass ratioOrdered By: Karen Aly on 01-07-2023 Albumin/Globulin [Mass ratio] 0.9 {ratio} 0.9-2.4 [facility] Serum or plasma calcium antoine urement (mass/volume)Ordered By: Karen Aly on 01-07-2023 Calcium [Mass/Vol] 8.8 mg/dL 8.5-10.1 [facility] Serum or plasma creatinine m easurement (mass/volume)Ordered By: Karen Aly on 01-07-2023 Creatinine [Mass/Vol] 1.13 mg/dL 0.70-1.30 [facility] Comment on above: The validity of the calculated GFR & GFRAA in patients over 70 years has not been determined. Clinical correlation is essential. Serum or plasma urea nitroge n measurement (mass/volume)Ordered By: Karen Aly on 01-07-2023 Urea nitrogen [Mass/Vol] 26 mg/dL 7-18 [facility] Thin prep Papanicolaou smear with manual screeningOrdered By: Karen Aly on 01-07-2023 Thin prep Papanicolaou smear with manual screening 13 U/L 15-37 [facility] Thin prep Papanicolaou smear with manual screening 8 5-15 [facility] Basophil percentageOrdered B y: Karen Aly on 01-05-2023 Basophil percentage 87 mg/dL <200 [facility] Basophil percentage 116 mg/dL <199 [facility] Cholesterol [Mass/Vol] 87 mg/dL <200 [facility] Comment on above: <200 mg/dL Desirable 200-240 mg/dL Borderline >240 mg/dL High Risk Triglyceride [Mass/Vol] 116 mg/dL <199 [facility] Comment on above: The drugs N-Acetylcy steine and Metamizole may falsely depress this assay.Serum Triglycerides Reference Interval Normal <150 mg/dL Borderline high 150 - 199 mg/dL High 200 - 499 mg/dL Very High > or = 500 mg/dL No Panel InformationOrdered By: Karen Aly on 01-05-2023 Thyroid Stimulating Hormone (TSH) 1.13 uIU/mL 0.358-3.74 [facility] 1.13 uIU/mL 0.358-3.74 [facility] Serum or plasma cholesterol in HDL measurement (mass/volume)Ordered By: Karen Aly on 01-05-2023 Cholesterol in HDL [Mass/Vol] 37 mg/dL >40 [facility] Comment on above: The drugs N-Acetylcy steine and Metamizole may falsely depress this assay. Reference Range HDL <40 mg/dL Low HDL Cholesterol HDL >or= 60 mg/dL High HDL Cholesterol Serum or plasma cholesterol in VLDL measurement (mass/volume)Ordered By: Karen Aly on 01-05-2023 Cholesterol in VLDL [Mass/Vol] 23 mg/dL 5-40 [facility] Serum or plasma low density lipoprotein (LDL) cholesterol measurement (mass/volume)Ordered By: Karen Aly on 01-05-2023 Cholesterol in LDL [Mass/Vol] 27 mg/dL 0-130 [facility] Whole blood hemoglobin A1c/t otal hemoglobin ratio (mass fraction)Ordered By: Karen Aly on 01-05-2023 HbA1c (Bld) [Mass fraction] 5.8 % 3.8-5.6 [facility] Comment on above: Normal < 5.7 % Predi abetic 5.7 - 6.4 % Diabetic >or= 6.5 % Please note range changes. Absolute lymphocyte countOrd ered By: Dr. Roberts on 01-04-2023 Lymphocytes Auto (Unsp spec) [#/Vol] 1.31 10*3/uL 0.83-4.51 [facility] Assessment of wrist artery p atency prior to arterial punctureOrdered By: Dr. Aly on 01-04-2023 Arterial patency Wrist artery --pre arterial puncture N/A [facility] Bacteria identified Cx Nom ( U)Ordered By: Maggy Roberts on 01-04-2023 Culture, urine Positive [facility] Base excessOrdered By: Dr. Freddy pettit on 01-04-2023 Base excess Calc (BldV) [Moles/Vol] 0 mmol/L -2-2 [facility] Basophil percentageOrdered B y: Dr. Aly on 01-04-2023 Basophil percentage 23.7 mmol/L 22-26 [facility] Basophils/100 WBC (Bld) 96 % 95-99 [facility] Ammonia (P) [Moles/Vol] 17.0 umol/L - [facility] Basophil percentageOrdered B y: Karen Aly on 01-04-2023 Basophil percentage 17.0 umol/L - [facility] Basophil percentageOrdered B y: Dr. Roberts on 01-04-2023 Basophil percentage 0 SEEN /hpf 0-5 [facility] Basophils/100 WBC (Bld) 0.4 % 0-1 [facility] Bilirubin [Mass/Vol] 0.70 mg/dL 0.20-1.00 [facility] Comment on above: For patients on eltr ombopag therapy, use of Dimension [place] TBIL is not recommended. Chloride [Moles/Vol] 105 mmol/L 98-107 [facility] Eosinophils/100 WBC (Bld) 1.7 % 0-5 [facility] Glucose [Mass/Vol] 133 mg/dL 74-106 [facility] Comment on above: Fasting Glucose resu lt greater than or equal to 126 mg/dL suggests DIABETES MELLITUS per A.D.A. criteria. Neutrophils (Bld) [#/Vol] 8.0 10*3/uL 2.0-7.7 [facility] Neutrophils/100 WBC (Bld) 78.3 % 47-70 [facility] Potassium [Moles/Vol] 4.2 mmol/L 3.5-5.1 [facility] Protein [Mass/Vol] 6.3 g/dL 6.4-8.2 [facility] Sodium [Moles/Vol] 139 mmol/L 136-145 [facility] WBC (Bld) [#/Vol] 10.2 10*3/uL 4.4-11.0 [facility] Bilirubin Test strip Ql (U)O rdered By: Dr. Roberts on 01-04-2023 Bilirubin Ql (U) Negative Negative [facility] Blood erythrocytes count (nu mber/volume)Ordered By: Dr. Roberts on 01-04-2023 RBC (Bld) [#/Vol] 5.09 10*6/uL 4.6-6.2 [facility] Blood hemoglobin measurement (mass/volume)Ordered By: Dr. Roberts on 01-04-2023 Hemoglobin (Bld) [Mass/Vol] 13.5 g/dL 13.0-16. 5 [facility] Blood lymphocytes/100 leukoc ytesOrdered By: Dr. Roberts on 01-04-2023 Lymphocytes/100 WBC (Bld) 12.8 % 19-41 [facility] Blood monocytes/100 leukocyt esOrdered By: Dr. Roberts on 01-04-2023 Monocytes/100 WBC (Bld) 5.9 % 0-10 [facility] Blood platelet mean volumeOr dered By: Dr. Roberts on 01-04-2023 Platelet mean volume (Bld) [Entitic vol] 8.7 fL 6.2-12.0 [facility] CO2 (BldA) [Partial pressure ]Ordered By: Dr. Aly on 01-04-2023 CO2 (Bld) [Partial pressure] 33.9 mm[Hg] 35-45 [facility] Culture, urineOrdered By: Eddie Roberts on 01-04-2023 Bacteria identified Cx Nom (U) Positive [facility] Determination of erythrocyte mean corpuscular volume (MCV)Ordered By: Dr. Roberts on 01-04-2023 MCV (RBC) [Entitic vol] 82.1 fL 80-94 [facility] Direct bilirubinOrdered By: Dr. Roberts on 01-04-2023 Bilirubin.direct [Mass/Vol] 0.20 mg/dL 0.00-0.3 0 [facility] Hematocrit Auto (Bld) [Volum e fraction]Ordered By: Dr. Roberts on 01-04-2023 Hematocrit (Bld) [Volume fraction] 41.8 % 40-54 [facility] INR in Blood by Coagulation assayOrdered By: Dr. Roberts on 01-04-2023 INR Coag (Bld) [Relative time] 3.1 {INR} [facility] Ketones Test strip Ql (U)Ord ered By: Dr. Roberts on 01-04-2023 Ketones Ql (U) Negative Negative [facility] Laboratory - Chemistry and C hemistry - challengeOrdered By: Karen Aly on 01-04-2023 Cobalamin (Vitamin B12) [Mass/Vol] 260 pg/mL 211-911 [facility] Laboratory - Chemistry and C hemistry - challengeOrdered By: Dr. Aly on 01-04-2023 Magnesium [Mass/Vol] 1.8 mg/dL 1.6-2.6 [facility] Laboratory - Chemistry and C hemistry - challengeOrdered By: Dr. Roberts on 01-04-2023 ALP [Catalytic activity/Vol] 102 U/L 45-117 [facility] ALT [Catalytic activity/Vol] 18 U/L 16-61 [facility] CO2 [Moles/Vol] 25.0 mmol/L 21.0-32.0 [facility] Globulin (S) [Mass/Vol] 3.2 g/dL 2.2-4.2 [facility] Urea nitrogen/Creatinine [Mass ratio] 18.7 mg/mg 10-20 [facility] Laboratory - CoagulationOrde red By: Dr. Roberts on 01-04-2023 PT Coag (PPP) [Time] 32.6 s 11.7-14.9 [facility] Laboratory - Hematology and Cell countsOrdered By: Dr. Roberts on 01-04-2023 Erythrocyte distribution width (RBC) [Entitic vol] 42.3 fL 35.1-43.9 [facility] Erythrocyte distribution width (RBC) [Ratio] 14.2 % 11.6-14.6 [facility] Immature granulocytes/100 WBC (Bld) 0.900 % 0.0-0.9 [facility] Comment on above: IG% - Immature Granu locytes (promyelocytes, myelocytes and metamyelocytes) > 1% indicates that a LEFT SHIFT is Present. MCH (RBC) [Entitic mass] 26.5 pg 27.0-32.0 [facility] Nucleated RBC/100 WBC (Bld) [Ratio] 0 % 0-5 [facility] Laboratory - Microbiology an d Antimicrobial susceptibilityOrdered By: Maggy Roberts on 01-04-2023 Bacteria identified Cx Nom (Bld) No growth in 5 days. [facility] MCHC Auto (RBC) [Mass/Vol]Or dered By: Dr. Roberts on 01-04-2023 MCHC (RBC) [Mass/Vol] 32.3 g/dL 32-36 [facility] Mucus LM Ql (Urine sed)Order ed By: Dr. Roberts on 01-04-2023 Mucus Ql (Urine sed) 0 SEEN /hpf [facility] Nitrite Test strip Ql (U)Ord ered By: Dr. Roberts on 01-04-2023 Nitrite Ql (U) Negative Negative [facility] No Panel InformationOrdered By: Dr. Aly on 01-04-2023 Blood Gas Oxygen Percent 21 [facility] Blood Gas Sample Site R Brach [facility] Blood Gas Specimen Type ART [facility] Blood Gas Total CO2 25 mmol/L [facility] Oxygen Delivery Device Room Air [facility] No Panel InformationOrdered By: Karen Aly on 01-04-2023 ART [facility] R Brach [facility] Room Air [facility] 21 [facility] 25 mmol/L [facility] 1.8 mg/dL 1.6-2.6 [facility] 260 pg/mL 211-911 [facility] No Panel InformationOrdered By: Maggy Roberts on 01-04-2023 No growth in 5 days. [facility] 7 pg/mL 3.0-78.0 [facility] No Panel InformationOrdered By: Dr. Roberts on 01-04-2023 Estimated Creatinine Clearance Calc 58.64 ml/min [facility] Estimated GFR (MDRD) Amer 74 mL/min >60 [facility] Comment on above: GFR Calc Estimated GFR (MDRD) Non-Af Amer 61 mL/min >60 [facility] Comment on above: Non- GFR Calc Troponin I High Sensitivity 7 pg/mL 3.0-78.0 [facility] Comment on above: Please Note: New Thania t Units and Gender Specific Reference Ranges. For more information see Policy Stat Procedure [place] High Sensitivity Troponin (TNIH) and attachments. Oxygen (BldA) [Partial press ure]Ordered By: Dr. Aly on 01-04-2023 Oxygen (Bld) [Partial pressure] 78 mmHG 75-100 [facility] Platelets bldOrdered By: Dr. Roberts on 01-04-2023 Platelets (Bld) [#/Vol] 228 10*3/uL 150-450 [facility] Protein Test strip Ql (U)Ord ered By: Dr. Roberts on 01-04-2023 Protein Ql (U) 15 mg/dl Negative [facility] Serum Treponema species anti body detectionOrdered By: Karen Aly on 01-04-2023 Treponema sp Ab Ql (S) Non-Reactive [facility] Serum or plasma albumin antoine urement (mass/volume)Ordered By: Dr. Roberts on 01-04-2023 Albumin [Mass/Vol] 3.1 g/dL 3.2-5.0 [facility] Serum or plasma calcium antoine urement (mass/volume)Ordered By: Dr. Roberts on 01-04-2023 Calcium [Mass/Vol] 8.6 mg/dL 8.5-10.1 [facility] Serum or plasma creatinine m easurement (mass/volume)Ordered By: Dr. Roberts on 01-04-2023 Creatinine [Mass/Vol] 1.23 mg/dL 0.70-1.30 [facility] Comment on above: The validity of the calculated GFR & GFRAA in patients over 70 years has not been determined. Clinical correlation is essential. Serum or plasma folate measu rement (mass/volume)Ordered By: Karen Aly on 01-04-2023 Folate [Mass/Vol] 4.40 ng/mL 3.1-55.4 [facility] Serum or plasma urea nitroge n measurement (mass/volume)Ordered By: Dr. Roberts on 01-04-2023 Urea nitrogen [Mass/Vol] 23 mg/dL 7-18 [facility] Serum procalcitonin measurem entOrdered By: Karen Aly on 01-04-2023 Procalcitonin [Mass/Vol] ng/mL 0.00-0.09 [facility] Comment on above: A procalcitonin (PCT ) level above 2.0 ng/mL on the first day of ICU admission is associated with a high risk for progression to severe sepsis and/or septic shock. A PCT level below 0.5 ng/mL on the first day of ICU admission is associated with a low risk for progression to severe and/or septic shock. Note: Concentrations <0.5 ng/mL do not exclude an infection on account of localized infections (without systemic signs) which can be associated with such low concentrations, or a systemic infection in its initial stages (<6 hours). Furthermore, increased procalcitonin can occur without infection. PCT concentrations between 0.5 and 2.0 ng/mL should be interpreted taking into account the patient's history. It is recommended to retest PCT within 6-24 hours if any concentrations <2 ng/mL are obtained. Squamous epithelial cells de tection in urine sediment by light microscopyOrdered By: Dr. Roberts on 01-04-2023 Epithelial cells.squamous LM Ql (Urine sed) 0-5 SEEN /hpf 0-5 [facility] Thin prep Papanicolaou smear with manual screeningOrdered By: Dr. Roberts on 01-04-2023 Thin prep Papanicolaou smear with manual screening 13 U/L 15-37 [facility] Thin prep Papanicolaou smear with manual screening 9 5-15 [facility] Urine blood detectionOrdered By: Dr. Roberts on 01-04-2023 RBC Ql (U) 10 /ul Negative [facility] RBC Ql (U) 0-5 SEEN /hpf 0-5 [facility] Urine clarityOrdered By: Dr. Roberts on 01-04-2023 Clarity (U) Sl. Cloudy Clear [facility] Urine color determinationOrd ered By: Dr. Roberts on 01-04-2023 Color (U) Yellow Yellow [facility] Urine glucose detectionOrder ed By: Dr. Roberts on 01-04-2023 Glucose Ql (U) 100 mg/dl Normal [facility] Urine leukocyte esterase det ection by dipstickOrdered By: Dr. Roberts on 01-04-2023 Leukocyte esterase Test strip Ql (U) Negative Negative [facility] Urine pHOrdered By: Dr. Yaya gallo on 01-04-2023 pH (U) 6.0 [pH] 5.0 - 8.0 [facility] Urine sediment bacteria coun t by microscopy (number/high power field)Ordered By: Dr. Roberts on 01-04-2023 Bacteria LM.HPF (Urine sed) [#/Area] 0 /[HPF] None Seen [facility] Urine specific gravity measu rementOrdered By: Dr. Roberts on 01-04-2023 Specific gravity (U) [Rel density] 1.020 1.002-1.03 0 [facility] Urobilinogen Auto test strip Ql (U)Ordered By: Dr. Roberts on 01-04-2023 Urobilinogen Ql (U) 4 mg/dl Normal [facility] pH measurementOrdered By: Dr Jose Aly on 01-04-2023 pH (Unsp spec) 7.45 [pH] 7.35-7.45 [facility] Absolute lymphocyte counton 07-11-2022 Lymphocytes Auto (Unsp spec) [#/Vol] 1.98 10*3/uL 0.83-4.51 [facility] Work Phone: Basophil percentageon 2021 Basophils/100 WBC (Bld) 0.6 % 0-1 [facility] Work Phone: Bilirubin [Mass/Vol] 0.90 mg/dL 0.20-1.00 [facility] Work Phone: Comment on above: For patients on eltr ombopag therapy, use of Dimension [place] TBIL is not recommended. Chloride [Moles/Vol] 105 mmol/L 98-107 [facility] Work Phone: Cholesterol [Mass/Vol] 102 mg/dL <200 [facility] Work Phone: Comment on above: <200 mg/dL Desirable 200-240 mg/dL Borderline >240 mg/dL High Risk Eosinophils/100 WBC (Bld) 4.1 % 0-5 [facility] Work Phone: Glucose [Mass/Vol] 103 mg/dL 74-106 [facility] Work Phone: Comment on above: Fasting Glucose resu lt from 100 to 125 mg/dL suggests IMPAIRED HOMEOSTASIS per A.D.A. criteria. Neutrophils (Bld) [#/Vol] 5.2 10*3/uL 2.0-7.7 [facility] Work Phone: Neutrophils/100 WBC (Bld) 63.5 % 47-70 [facility] Work Phone: Potassium [Moles/Vol] 3.5 mmol/L 3.5-5.1 [facility] Work Phone: Protein [Mass/Vol] 5.9 g/dL 6.4-8.2 [facility] Work Phone: Sodium [Moles/Vol] 138 mmol/L 136-145 [facility] Work Phone: Triglyceride [Mass/Vol] 124 mg/dL <199 [facility] Work Phone: [phone] Comment on above: The drugs N-Acetylcy steine and Metamizole may falsely depress this assay.Serum Triglycerides Reference Interval Normal <150 mg/dL Borderline high 150 - 199 mg/dL High 200 - 499 mg/dL Very High > or = 500 mg/dL WBC (Bld) [#/Vol] 8.2 10*3/uL 4.4-11.0 [facility] Work Phone: Blood erythrocytes count (nu mber/volume)on 07-11-2022 RBC (Bld) [#/Vol] 4.75 10*6/uL 4.6-6.2 [facility] Work Phone: Blood hemoglobin measurement (mass/volume)on 07-11-2022 Hemoglobin (Bld) [Mass/Vol] 12.7 g/dL 13.0-16. 5 [facility] Work Phone: Blood lymphocytes/100 leukoc yteson 07-11-2022 Lymphocytes/100 WBC (Bld) 24.1 % 19-41 [facility] Work Phone: Blood monocytes/100 leukocyt eson 07-11-2022 Monocytes/100 WBC (Bld) 6.8 % 0-10 [facility] Work Phone: Blood platelet mean volumeon 07-11-2022 Platelet mean volume (Bld) [Entitic vol] 9.2 fL 6.2-12.0 [facility] Work Phone: Determination of erythrocyte mean corpuscular volume (MCV)on 07-11-2022 MCV (RBC) [Entitic vol] 82.7 fL 80-94 [facility] Work Phone: Glucose Glucometer (BldC) [M ass/Vol]on 07-11-2022 Glucose [Mass/Vol] 149 mg/dL 74-106 [facility] Work Phone: Comment on above: MANAGEMENT OF PATIEN T CARE PER NURSING PROTOCOL Hematocrit Auto (Bld) [Volum e fraction]on 07-11-2022 Hematocrit (Bld) [Volume fraction] 39.3 % 40-54 [facility] Work Phone: INR in Blood by Coagulation assayon 07-11-2022 INR Coag (Bld) [Relative time] 2.1 {INR} [facility] Work Phone: Laboratory - Chemistry and C hemistry - challengeon 07-11-2022 ALP [Catalytic activity/Vol] 106 U/L 45-117 [facility] Work Phone: ALT [Catalytic activity/Vol] 22 U/L 16-61 [facility] Work Phone: CO2 [Moles/Vol] 25.0 mmol/L 21.0-32.0 [facility] Work Phone: Globulin (S) [Mass/Vol] 2.9 g/dL 2.2-4.2 [facility] Work Phone: Magnesium [Mass/Vol] 1.9 mg/dL 1.6-2.6 [facility] Work Phone: Urea nitrogen/Creatinine [Mass ratio] 17.7 mg/mg 10-20 [facility] Work Phone: Laboratory - Coagulationon 1 09-11-2021 PT Coag (PPP) [Time] 23.6 s 11.7-14.9 [facility] Work Phone: Laboratory - Hematology and Cell countson 07-11-2022 Erythrocyte distribution width (RBC) [Entitic vol] 44.0 fL 35.1-43.9 [facility] Work Phone: Erythrocyte distribution width (RBC) [Ratio] 14.6 % 11.6-14.6 [facility] Work Phone: Immature granulocytes/100 WBC (Bld) 0.900 % 0.0-0.9 [facility] Work Phone: Comment on above: IG% - Immature Granu locytes (promyelocytes, myelocytes and metamyelocytes) > 1% indicates that a LEFT SHIFT is Present. MCH (RBC) [Entitic mass] 26.7 pg 27.0-32.0 [facility] Work Phone: Nucleated RBC/100 WBC (Bld) [Ratio] 0 % 0-5 [facility] Work Phone: MCHC Auto (RBC) [Mass/Vol]on 07-11-2022 MCHC (RBC) [Mass/Vol] 32.3 g/dL 32-36 [facility] Work Phone: No Panel Informationon 07-11 Estimated Creatinine Clearance Calc 64.82 ml/min [facility] Work Phone: Estimated GFR (MDRD) Amer 81 mL/min >60 [facility] Work Phone: Comment on above: GFR Calc Estimated GFR (MDRD) Non-Af Amer 67 mL/min >60 [facility] Work Phone: Comment on above: Non- GFR Calc Platelets bldon 07-11-2022 Platelets (Bld) [#/Vol] 200 10*3/uL 150-450 [facility] Work Phone: Serum or plasma albumin antoine urement (mass/volume)on 07-11-2022 Albumin [Mass/Vol] 3.0 g/dL 3.2-5.0 [facility] Work Phone: Serum or plasma albumin/glob ulin mass ratioon 07-11-2022 Albumin/Globulin [Mass ratio] 1.0 {ratio} 0.9-2.4 [facility] Work Phone: Serum or plasma calcium antoine urement (mass/volume)on 07-11-2022 Calcium [Mass/Vol] 8.6 mg/dL 8.5-10.1 [facility] Work Phone: Serum or plasma cholesterol in HDL measurement (mass/volume)on 07-11-2022 Cholesterol in HDL [Mass/Vol] 36 mg/dL >40 [facility] Work Phone: Comment on above: The drugs N-Acetylcy steine and Metamizole may falsely depress this assay. Reference Range HDL <40 mg/dL Low HDL Cholesterol HDL >or= 60 mg/dL High HDL Cholesterol Serum or plasma cholesterol in VLDL measurement (mass/volume)on 07-11-2022 Cholesterol in VLDL [Mass/Vol] 25 mg/dL 5-40 [facility] Work Phone: Serum or plasma creatinine m easurement (mass/volume)on 07-11-2022 Creatinine [Mass/Vol] 1.13 mg/dL 0.70-1.30 [facility] Work Phone: Comment on above: The validity of the calculated GFR & GFRAA in patients over 70 years has not been determined. Clinical correlation is essential. Serum or plasma low density lipoprotein (LDL) cholesterol measurement (mass/volume)on 07-11-2022 Cholesterol in LDL [Mass/Vol] 41 mg/dL 0-130 [facility] Work Phone: Serum or plasma urea nitroge n measurement (mass/volume)on 07-11-2022 Urea nitrogen [Mass/Vol] 20 mg/dL 7-18 [facility] Work Phone: Thin prep Papanicolaou smear with manual screeningon 07-11-2022 Thin prep Papanicolaou smear with manual screening 23 U/L 15-37 [facility] Work Phone: Thin prep Papanicolaou smear with manual screening 8 5-15 [facility] Work Phone: No Panel Informationon 07-10 Troponin I High Sensitivity 103 pg/mL 3.0-78.0 [facility] Work Phone: Comment on above: Please Note: New Thania t Units and Gender Specific Reference Ranges. For more information see Policy Stat Procedure [place] High Sensitivity Troponin (TNIH) and attachments. Thyroid Stimulating Hormone (TSH) 1.03 uIU/mL 0.358-3.74 [facility] Work Phone: Basophil percentageon 2021 Basophil percentage 0-5 SEEN /hpf 0-5 [facility] Work Phone: Bilirubin Test strip Ql (U)o n 07-09-2022 Bilirubin Ql (U) Negative Negative [facility] Work Phone: Hyaline casts LM.LPF (Urine sed) [#/Area]on 07-09-2022 Hyaline casts (Urine sed) [#/Area] 0 /[LPF] 0-5 [facility] Work Phone: Ketones Test strip Ql (U)on 07-09-2022 Ketones Ql (U) 5 mg/dl Negative [facility] Work Phone: Mucus LM Ql (Urine sed)on Mucus Ql (Urine sed) 1+ /hpf [facility] Work Phone: Nitrite Test strip Ql (U)on 07-09-2022 Nitrite Ql (U) Negative Negative [facility] Work Phone: Protein Test strip Ql (U)on 07-09-2022 Protein Ql (U) 30 mg/dl Negative [facility] Work Phone: Squamous epithelial cells de tection in urine sediment by light microscopyon 07-09-2022 Epithelial cells.squamous LM Ql (Urine sed) 0 SEEN /hpf 0-5 [facility] Work Phone: Urine blood detectionon 06-15 RBC Ql (U) 25 /ul Negative [facility] Work Phone: RBC Ql (U) 0-5 SEEN /hpf 0-5 [facility] Work Phone: Urine clarityon 07-09-2022 Clarity (U) Clear Clear [facility] Work Phone: Urine color determinationon 07-09-2022 Color (U) Yellow Yellow [facility] Work Phone: Urine glucose detectionon Glucose Ql (U) Normal mg/dl Normal [facility] Work Phone: Urine leukocyte esterase det ection by dipstickon 07-09-2022 Leukocyte esterase Test strip Ql (U) Negative Negative [facility] Work Phone: Urine pHon 07-09-2022 pH (U) 5.0 [pH] 5.0 - 8.0 [facility] Work Phone: Urine sediment bacteria coun t by microscopy (number/high power field)on 07-09-2022 Bacteria LM.HPF (Urine sed) [#/Area] 1 /[HPF] None Seen [facility] Work Phone: Urine specific gravity measu rementon 07-09-2022 Specific gravity (U) [Rel density] 1.025 1.002-1.03 0 [facility] Work Phone: Urobilinogen Auto test strip Ql (U)on 07-09-2022 Urobilinogen Ql (U) 1 mg/dl Normal [facility] Work Phone: INR in Blood by Coagulation assayon 03-07-2022 INR Coag (Bld) [Relative time] 2.9 {INR} [facility] Laboratory - Coagulationon 0 03-07-2022 PT Coag (PPP) [Time] 30.2 s 11.7-14.9 [facility] Work Phone: Absolute lymphocyte counton 03-02-2022 Lymphocytes Auto (Unsp spec) [#/Vol] 1.26 10*3/uL 0.83-4.51 [facility] Work Phone: Basophil percentageon 2021 Basophil percentage 0 SEEN /hpf 0-5 [facility] Work Phone: Basophils/100 WBC (Bld) 0.4 % 0-1 [facility] Work Phone: Chloride [Moles/Vol] 105 mmol/L 98-107 [facility] Work Phone: Eosinophils/100 WBC (Bld) 2.5 % 0-5 [facility] Work Phone: Glucose [Mass/Vol] 158 mg/dL 74-106 [facility] Work Phone: Comment on above: Fasting Glucose resu lt greater than or equal to 126 mg/dL suggests DIABETES MELLITUS per A.D.A. criteria. Neutrophils (Bld) [#/Vol] 8.8 10*3/uL 2.0-7.7 [facility] Work Phone: Neutrophils/100 WBC (Bld) 78.8 % 47-70 [facility] Work Phone: Potassium [Moles/Vol] 4.2 mmol/L 3.5-5.1 [facility] Work Phone: Sodium [Moles/Vol] 138 mmol/L 136-145 [facility] Work Phone: WBC (Bld) [#/Vol] 11.2 10*3/uL 4.4-11.0 [facility] Work Phone: Bilirubin Test strip Ql (U)o n 03-02-2022 Bilirubin Ql (U) Negative Negative [facility] Work Phone: Blood erythrocytes count (nu mber/volume)on 03-02-2022 RBC (Bld) [#/Vol] 5.15 10*6/uL 4.6-6.2 [facility] Work Phone: Blood hemoglobin measurement (mass/volume)on 03-02-2022 Hemoglobin (Bld) [Mass/Vol] 13.8 g/dL 13.0-16. 5 [facility] Work Phone: Blood lymphocytes/100 leukoc yteson 03-02-2022 Lymphocytes/100 WBC (Bld) 11.2 % 19-41 [facility] Work Phone: Blood monocytes/100 leukocyt eson 03-02-2022 Monocytes/100 WBC (Bld) 5.7 % 0-10 [facility] Work Phone: Blood platelet mean volumeon 03-02-2022 Platelet mean volume (Bld) [Entitic vol] 9.0 fL 6.2-12.0 [facility] Work Phone: Determination of erythrocyte mean corpuscular volume (MCV)on 03-02-2022 MCV (RBC) [Entitic vol] 82.3 fL 80-94 [facility] Work Phone: Glucose Glucometer (BldC) [M ass/Vol]on 03-02-2022 Glucose [Mass/Vol] 158 mg/dL 74-106 [facility] Work Phone: Comment on above: MANAGEMENT OF PATIEN T CARE PER NURSING PROTOCOL Hematocrit Auto (Bld) [Volum e fraction]on 03-02-2022 Hematocrit (Bld) [Volume fraction] 42.4 % 40-54 [facility] Work Phone: Hyaline casts LM.LPF (Urine sed) [#/Area]on 03-02-2022 Hyaline casts (Urine sed) [#/Area] 0 /[LPF] 0-5 [facility] Work Phone: INR in Blood by Coagulation assayon 03-02-2022 INR Coag (Bld) [Relative time] 4.4 {INR} [facility] Work Phone: Comment on above: CRITICAL VALUE VERIF IED. CALLED TO AUEBZFE22/19/22 [id number] Brie Nelson Francesca.RESULTS READ BACK BY SAME . Ketones Test strip Ql (U)on 03-02-2022 Ketones Ql (U) 5 mg/dl Negative [facility] Work Phone: Laboratory - Chemistry and C hemistry - challengeon 03-02-2022 CO2 [Moles/Vol] 23.0 mmol/L 21.0-32.0 [facility] Work Phone: Urea nitrogen/Creatinine [Mass ratio] 16.9 mg/mg 10-20 [facility] Work Phone: Laboratory - Coagulationon 0 03-02-2022 PT Coag (PPP) [Time] 41.4 s 11.7-14.9 [facility] Work Phone: Laboratory - Hematology and Cell countson 03-02-2022 Erythrocyte distribution width (RBC) [Entitic vol] 41.4 fL 35.1-43.9 [facility] Work Phone: Erythrocyte distribution width (RBC) [Ratio] 14.0 % 11.6-14.6 [facility] Work Phone: Immature granulocytes/100 WBC (Bld) 1.400 % 0.0-0.9 [facility] Work Phone: Comment on above: IG% - Immature Granu locytes (promyelocytes, myelocytes and metamyelocytes) > 1% indicates that a LEFT SHIFT is Present. MCH (RBC) [Entitic mass] 26.8 pg 27.0-32.0 [facility] Work Phone: Nucleated RBC/100 WBC (Bld) [Ratio] 0 % 0-5 [facility] Work Phone: MCHC Auto (RBC) [Mass/Vol]on 03-02-2022 MCHC (RBC) [Mass/Vol] 32.5 g/dL 32-36 [facility] Work Phone: Mucus LM Ql (Urine sed)on Mucus Ql (Urine sed) 3+ /hpf [facility] Work Phone: Nitrite Test strip Ql (U)on 03-02-2022 Nitrite Ql (U) Negative Negative [facility] Work Phone: No Panel Informationon 03-02 Estimated Creatinine Clearance Calc 49.49 ml/min [facility] Work Phone: Estimated GFR (MDRD) Amer 60 mL/min >60 [facility] Work Phone: Comment on above: GFR Calc Estimated GFR (MDRD) Non-Af Amer 49 mL/min >60 [facility] Work Phone: Comment on above: Non- GFR Calc Troponin I High Sensitivity 11 pg/mL 3.0-78.0 [facility] Work Phone: Comment on above: Please Note: New Thania t Units and Gender Specific Reference Ranges. For more information see Policy Stat Procedure [place] High Sensitivity Troponin (TNIH) and attachments. Platelets bldon 03-02-2022 Platelets (Bld) [#/Vol] 269 10*3/uL 150-450 [facility] Work Phone: Protein Test strip Ql (U)on 03-02-2022 Protein Ql (U) 30 mg/dl Negative [facility] Work Phone: Serum or plasma calcium antoine urement (mass/volume)on 03-02-2022 Calcium [Mass/Vol] 9.4 mg/dL 8.5-10.1 [facility] Work Phone: Serum or plasma creatinine m easurement (mass/volume)on 03-02-2022 Creatinine [Mass/Vol] 1.48 mg/dL 0.70-1.30 [facility] Work Phone: Comment on above: The validity of the calculated GFR & GFRAA in patients over 70 years has not been determined. Clinical correlation is essential. Serum or plasma urea nitroge n measurement (mass/volume)on 03-02-2022 Urea nitrogen [Mass/Vol] 25 mg/dL 7-18 [facility] Work Phone: Squamous epithelial cells de tection in urine sediment by light microscopyon 03-02-2022 Epithelial cells.squamous LM Ql (Urine sed) 0-5 SEEN /hpf 0-5 [facility] Work Phone: Thin prep Papanicolaou smear with manual screeningon 03-02-2022 Thin prep Papanicolaou smear with manual screening 10 5-15 [facility] Work Phone: Urine blood detectionon 02-12 RBC Ql (U) 10 /ul Negative [facility] Work Phone: RBC Ql (U) 0-5 SEEN /hpf 0-5 [facility] Work Phone: Urine clarityon 03-02-2022 Clarity (U) Clear Clear [facility] Work Phone: Urine color determinationon 03-02-2022 Color (U) Yellow Yellow [facility] Work Phone: Urine glucose detectionon Glucose Ql (U) 50 mg/dl Normal [facility] Work Phone: Urine leukocyte esterase det ection by dipstickon 03-02-2022 Leukocyte esterase Test strip Ql (U) Negative Negative [facility] Work Phone: Urine pHon 03-02-2022 pH (U) 5.0 [pH] 5.0 - 8.0 [facility] Work Phone: Urine sediment bacteria coun t by microscopy (number/high power field)on 03-02-2022 Bacteria LM.HPF (Urine sed) [#/Area] 2 /[HPF] None Seen [facility] Work Phone: Urine specific gravity measu rementon 03-02-2022 Specific gravity (U) [Rel density] 1.025 1.002-1.03 0 [facility] Work Phone: Urobilinogen Auto test strip Ql (U)on 03-02-2022 Urobilinogen Ql (U) Normal mg/dl Normal [facility] Work Phone: Liliam 01-09-2022 [facility] Kiara 01-02-2022 JACOBO Telephone (VICTORINAO) RICHARD ROY ([id number]) 1945 M Date Time Provider Department 01/02/22 JUSTINA MONIQUE During your visit today, we recorded the following information about you: Justina Garcia LPN 01/02/2022 7:43 AM Signed ----- Message from Justina Monique APRN.BARGAIN TABLE CLERK sent at 01/02/2022 7:38 AM EDT ----- Please call patient and notify him cholesterol has good control. Thank you! Justina Garcia LPN 01/02/2022 8:07 AM Signed I spoke to and informed him of Justina's response to lipid panel results. Patient voiced understanding. Justina Garcia LPN Allergies As of Date: 01/02/2022 Noted Allergy Reaction PANTOPRAZOLE 09/24/2019 6 - Diarrhea Date Reviewed: 01/01/2022 Reviewed by: Justina Monique APRN.KOSTAS - Fully Assessed Reason for Visit: Results [95] Prescriptions as of 01/02/2022 - mupirocin (BACTROBAN) 2 % ointment Apply to affected area twice daily for 10 days. - tamsulosin (FLOMAX) 0.4 mg Take 1 capsule by mouth daily at bedtime. - metFORMIN ER (GLUCOPHAGE XR) 500 mg 24 hr tablet Take 2 tablets by mouth twice daily with meals. - insulin glargine (LANTUS SOLOSTAR U-100 INSULIN) 100 unit/mL (3 mL) Inject 24 Units subcutaneously daily at bedtime. - warfarin (COUMADIN) 5 mg tablet 10 mg Saturday and Saturday, 7.5 mg all other days. Patient has INR drawn bi-weekly. - metoprolol succinate ER (TOPROL XL) 200 mg 24 hr tablet Take 1 tablet by mouth once daily. - dulaglutide (TRULICITY) 1.5 mg/0.5 mL pen injector Inject 1.5 mg subcutaneously one time a week. Inject once per week. Discard Pen After - atorvastatin (LIPITOR) 40 mg tablet TAKE 1 TABLET BY MOUTH ONCE DAILY. FOR CHOLESTEROL. - losartan (COZAAR) 50 mg tablet Take 1 tablet by mouth once daily. - blood sugar diagnostic (nuevoStage ULTRA TEST) test strip Test blood sugar(s) 3 times daily. Dx: E11.49. Insulin: Yes - Docusate Sodium 100 mg tab Take 100 mg by mouth once daily. - insulin aspart U-100 (NOVOLOG FLEXPEN U-100 INSULIN) 100 unit/mL (3 mL) Inject with meals according to sliding scale: 100-200=3 units, 201-250=5 units, 251-300=8 units, 301-350=12 units, 351-400=15 units. - insulin needles, DISPOSABLE, (BD INSULIN PEN NEEDLE UF) 31 gauge x 5/16 1 Each four times daily. 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 CBC W Auto Differential pane l (Bld)on 01-01-2022 Abs Immature Gran 0.15 k/uL High <0.10 k/uL [facility] Basophils (Bld) [#/Vol] 0.06 10*3/uL <0.11 k/uL [facility] Basophils/100 WBC (Bld) 0.5 % [facility] Differential cell count method Nom (Bld) Auto [facility] Eosinophils (Bld) [#/Vol] 0.39 10*3/uL <0.46 k/ uL [facility] Eosinophils/100 WBC (Bld) 3.1 % [facility] Erythrocyte distribution width (RBC) [Ratio] 14.5 % 11.5 - 15.0 % [facility] Hematocrit (Bld) [Volume fraction] 46.6 % 39.0 - 51.0 % [facility] Hemoglobin (Bld) [Mass/Vol] 14.5 g/dL 13.0 - 17.0 g/dL [facility] Immature Gran % 1.2 % [facility] Lymphocytes (Bld) [#/Vol] 1.81 10*3/uL 1. 00 - 4.00 k/uL [facility] Lymphocytes/100 WBC (Bld) 14.5 % [facility] MCH (RBC) [Entitic mass] 26.6 pg 26. 0 - 34.0 pg [facility] MCHC (RBC) [Mass/Vol] 31.1 g/dL 30.5 - 36.0 g/dL [facility] MCV (RBC) [Entitic vol] 85.3 fL 80.0 - 100.0 fL [facility] Monocytes (Bld) [#/Vol] 0.86 10*3/uL <0.87 k/uL [facility] Monocytes/100 WBC (Bld) 6.9 % [facility] Neutrophils (Bld) [#/Vol] 9.20 10*3/uL High 1. 45 - 7.50 k/uL [facility] Neutrophils/100 WBC (Bld) 73.8 % [facility] Nucleated RBC (Bld) [#/Vol] 10*3/uL <0.01 k/ uL [facility] Nucleated RBC/100 WBC (Bld) [Ratio] 0.0 /100 WBC [facility] Platelet mean volume (Bld) [Entitic vol] 9.7 fL 9.0 - 12.7 fL [facility] Platelets (Bld) [#/Vol] 287 10*3/uL 150 - 400 k/uL [facility] RBC (Bld) [#/Vol] 5.46 10*6/uL 4.20 - 6.00 m/uL [facility] WBC (Bld) [#/Vol] 12.47 10*3/uL High 3.70 - 11.00 k/uL [facility] Comprehensive metabolic 2000 panelon 01-01-2022 Albumin [Mass/Vol] 4.2 g/dL 3.9 - 4.9 g/dL [facility] ALP [Catalytic activity/Vol] 96 U/L 38 - 113 U/L [facility] ALT [Catalytic activity/Vol] 29 U/L 10 - 54 U/L [facility] Anion gap [Moles/Vol] 12 mmol/L 9 - 18 mmol/L [facility] AST [Catalytic activity/Vol] 20 U/L 14 - 40 U/L [facility] Bilirubin [Mass/Vol] 0.6 mg/dL 0.2 - 1 .3 mg/dL [facility] Calcium [Mass/Vol] 9.4 mg/dL 8.5 - 10. 2 mg/dL [facility] Chloride [Moles/Vol] 101 mmol/L 97 - 10 5 mmol/L [facility] CO2 [Moles/Vol] 25 mmol/L 22 - 30 mmol/L [facility] Creatinine [Mass/Vol] 1.20 mg/dL 0.73 - 1.22 mg/dL [facility] Estimated Glomerular Filtration Rate 63 mL/min/1.73m >=60 mL/min/1.7 3m [facility] Glucose [Mass/Vol] 118 mg/dL High 74 - 99 mg/dL [facility] Potassium [Moles/Vol] 4.4 mmol/L 3.7 - 5.1 mmol/L [facility] Protein [Mass/Vol] 6.6 g/dL 6.3 - 8.0 g/dL [facility] Sodium [Moles/Vol] 138 mmol/L 136 - 144 mmol/L [facility] Urea nitrogen [Mass/Vol] 15 mg/dL 9 - 24 mg/dL [facility] PSA/PROSTSPECAG SCRNon 01-01 Prostate specific Ag [Mass/Vol] 1.75 ng/mL <2.60 ng/mL [facility] UA DIP, URINE (POC)on 2021 BILIRUBIN UA (POCT) Negative Negative [facility] CLARITY UA (POCT) Clear [facility] COLOR UA (POCT) Dark yellow [facility] GLUCOSE UA (POCT) 100 mg/dL Abnormal Negative mg/dL [facility] HEMOGLOBIN/BLOOD UA (POCT) Trace-intact Abnormal Negativ e [facility] KETONE UA (POCT) Negative Negative mg/dL [facility] LEUKOCYTES UA (POCT) Negative Negative [facility] NITRITE UA (POCT) Negative Negative [facility] PH UA (POCT) 5.5 4.5 - 8.0 [facility] Protein Ql (U) 30 mg/dL Abnormal Negative mg/dL [facility] SPECIFIC GRAVITY UA (POCT) >=1.030 1 .005 - 1.030 [facility] UROBILINOGEN UA (POCT) 1.0 E.U./dL Lanette l E.U./dL [facility] VITAMIN B12 BLOODon 01-02-20 Cobalamin (Vitamin B12) [Mass/Vol] 377 pg/mL 232-1,245 pg/mL [facility] Absolute lymphocyte counton 12-29-2021 Lymphocytes Auto (Unsp spec) [#/Vol] 1.56 10*3/uL 0.83-4.51 [facility] Work Phone: BCIDon 12-29-2021 Acinetobacter justen-baumanii complex Not detected Normal Not Detected [facility] ([place]) Comment on above: Performed By: #### B JIN #### [place] [address] Bacteroides fragilis Not detected Normal Not Detected [facility] ([place]) Comment on above: Performed By: #### B JIN #### [place] [address] BCID Comment See Comment Normal [facility] ([place]) Comment on above: Result Comment: Anti microbial resistance can occur via multiple mechanisms. A Not Detected result for antimicrobial resistance gene(s) does not indicate antimicrobial susceptibility. Culture identification and susceptibility results to follow. If BCID panel was negative (Not Detected) for all targets, this does not exclude a blood stream infection. Our blood culture system detected growth. Culture identification and susceptibility testing (if appropriate) to follow. Performed By: #### B JIN #### [place] [address] Kellie albicans Not detected Normal Not Detected [facility] ([place]) Comment on above: Performed By: #### B JIN #### [place] [address] Kellie auris Not detected Normal Not Detected [facility] ([place]) Comment on above: Performed By: #### B JIN #### [place] [id number] Kellie glabrata Not detected Normal Not Detected [facility] ([place]) Comment on above: Performed By: #### B JIN #### [place] [address] Kellie krusei Not detected Normal Not Detected [facility] ([place]) Comment on above: Performed By: #### B JIN #### [facility] [address] [place] [address] Kellie parapsilosis Not detected Normal Not Detected [facility] ([place]) Comment on above: Performed By: #### B JIN #### [facility] [address] [place], [place] [id number] Kellie tropicalis Not detected Normal Not Detected [facility] ([place] Comment on above: Performed By: #### B JIN #### [facility] [address] [place] [address] Cryptococcus neoformans-gattii Not detected Normal Not Detected [facility] ([place]) Comment on above: Performed By: #### B JIN #### [facility] [address] [place] [address] CTX-M (ESBL) Not Applicable Normal Not Detected [facility] ([place] Comment on above: Performed By: #### B JIN #### [place] [address] E. Coli Not detected Normal Not Detected [facility] ([place] Comment on above: Performed By: #### B JIN #### [place] [address] Enterobacter cloacae Complex Not detected Normal Not Detected [facility] ([place] Comment on above: Performed By: #### B JIN #### [place] [address] Enterobacterales Not detected Normal Not Detected [facility] ([place] Comment on above: Performed By: #### B JIN #### [place] [address] Enterococcus faecalis Not detected Normal Not Detected [facility] ([place] Comment on above: Performed By: #### B JIN #### [facility] [address] [place], [place] [id number] Enterococcus faecium Not detected Normal Not Detected [facility] ([place] Comment on above: Performed By: #### B JIN #### [place] [address] Haemophilus influenzae Not detected Normal Not Detected [facility] ([place] Comment on above: Performed By: #### B JIN #### [place] [id number] IMP (Carbapenemase) Not Applicable Normal Not Detected [facility] ([place] Comment on above: Performed By: #### B JIN #### [place] [address] Klebsiella aerogenes Not detected Normal Not Detected [facility] ([place] Comment on above: Performed By: #### B JIN #### [place] [address] Klebsiella oxytoca Not detected Normal Not Detected [facility] ([place] Comment on above: Performed By: #### B JIN #### [place] [address] Klebsiella pneumoniae group Not detected Normal Not Detected [facility] ([place]) Comment on above: Performed By: #### B JIN #### [place] [address] KPC (Carbapenemase) Not Applicable Normal Not Detected [facility] ([place] Comment on above: Performed By: #### B JIN #### [place] [address] Listeria monocytogenes Not detected Normal Not Detected [facility] ([place]) Comment on above: Performed By: #### B JIN #### [place] [address] MCR-1 (Colistin Resistance) Not Applicable Normal Not Detected [facility] ([place] Comment on above: Performed By: #### B JIN #### [place] [address] Mec A/C Detected Abnormal Not Detected [facility] ([place] Comment on above: Performed By: #### B JIN #### [place] [address] Mec A/C-MREJ (MRSA) Not Applicable Normal Not Detected [facility] ([place] Comment on above: Performed By: #### B JIN #### [place] [address] NDM (Carbapenemase) Not Applicable Normal Not Detected [facility] ([place] Comment on above: Performed By: #### B JIN #### [place] [address] Neisseria meningitidis (Encapsalated) Not detected Normal Not Detected [facility] ([place] Comment on above: Performed By: #### B JIN #### [place] [address] OXA-48 like (Carbapenemase) Not Applicable Normal Not Detected [facility] ([place]) Comment on above: Performed By: #### B JIN #### [place] [address] Proteus Not detected Normal Not Detected [facility] ([place] Comment on above: Performed By: #### B JIN #### [place] [address] Pseudomonas aeruginosa Not detected Normal Not Detected [facility] ([place] Comment on above: Performed By: #### B JIN #### [place] [address] S. agalactiae Org specific cx Ql (Vag fld) Not detected Normal Not Detected [facility] ([place] Comment on above: Performed By: #### B JIN #### [place] [address] Salmonella species Not detected Normal Not Detected [facility] ([place] Comment on above: Performed By: #### B JIN #### [place] [address] Serratia marcescens Not detected Normal Not Detected [facility] ([place] Comment on above: Performed By: #### B JIN #### [place] [address] Staphylococcus Detected Abnormal Not Detected [facility] ([place] Comment on above: Performed By: #### B JIN #### [place] [address] Staphylococcus aureus Not detected Normal Not Detected [facility] ([place] Comment on above: Result Comment: If S taphylococcus aureus is Detected, an Infectious Disease physician consult is required on identification. Performed By: #### B JIN #### [place] [address] Staphylococcus epidermidis Detected Abnormal N ot Detected [facility] ([place] Comment on above: Performed By: #### B JIN #### [place] [address] Staphylococcus lugdunensis Not detected Normal N ot Detected [facility] ([place] Comment on above: Performed By: #### B JIN #### [place] [address] Stenotropomonas maltophilia Not detected Normal Not Detected [facility] ([place] Comment on above: Performed By: #### B JIN #### [place] [address] Streptococcus Not detected Normal Not Detected [facility] ([place] Comment on above: Performed By: #### B JIN #### [place] [address] Streptococcus pneumoniae Not detected Normal Not Detected [facility] ([place] Comment on above: Performed By: #### B JIN #### [place] [address] Streptococcus pyogenes Not detected Normal Not Detected [facility] ([place] Comment on above: Performed By: #### B JIN #### [place] [address] Van A/B Not Applicable Normal Not Detected [facility] ([place] Comment on above: Performed By: #### B JIN #### [place] [address] VIM (Carbapenemase) Not Applicable Normal Not Detected [facility] ([place] Comment on above: Performed By: #### B JIN #### [place] [address] Basophil percentageon 2021 Basophils/100 WBC (Bld) 0.3 % 0-1 [facility] Work Phone: Chloride [Moles/Vol] 108 mmol/L 98-107 [facility] Work Phone: Eosinophils/100 WBC (Bld) 3.2 % 0-5 [facility] Work Phone: [phone] Glucose [Mass/Vol] 109 mg/dL 74-106 [facility] Work Phone: Comment on above: Fasting Glucose resu lt from 100 to 125 mg/dL suggests IMPAIRED HOMEOSTASIS per A.D.A. criteria. Neutrophils (Bld) [#/Vol] 6.6 10*3/uL 2.0-7.7 [facility] Work Phone: Neutrophils/100 WBC (Bld) 70.4 % 47-70 [facility] Work Phone: [phone] Potassium [Moles/Vol] 4.1 mmol/L 3.5-5.1 [facility] Work Phone: [phone] Sodium [Moles/Vol] 140 mmol/L 136-145 [facility] Work Phone: WBC (Bld) [#/Vol] 9.4 10*3/uL 4.4-11.0 [facility] Work Phone: Blood erythrocytes count (nu mber/volume)on 12-29-2021 RBC (Bld) [#/Vol] 4.61 10*6/uL 4.6-6.2 [facility] Work Phone: Blood hemoglobin measurement (mass/volume)on 12-29-2021 Hemoglobin (Bld) [Mass/Vol] 12.4 g/dL 13.0-16. 5 [facility] Work Phone: Blood lymphocytes/100 leukoc yteson 12-29-2021 Lymphocytes/100 WBC (Bld) 16.7 % 19-41 [facility] Work Phone: Blood monocytes/100 leukocyt eson 12-29-2021 Monocytes/100 WBC (Bld) 8.7 % 0-10 W [facility] Work Phone: Blood platelet mean volumeon 12-29-2021 Platelet mean volume (Bld) [Entitic vol] 9.3 fL 6.2-12.0 [facility] Work Phone: Determination of erythrocyte mean corpuscular volume (MCV)on 12-29-2021 MCV (RBC) [Entitic vol] 82.9 fL 80-94 W [facility] Work Phone: Glucose Glucometer (BldC) [M ass/Vol]on 12-29-2021 Glucose [Mass/Vol] 129 mg/dL 74-106 [facility] Work Phone: Comment on above: MANAGEMENT OF PATIEN T CARE PER NURSING PROTOCOL Hematocrit Auto (Bld) [Volum e fraction]on 12-29-2021 Hematocrit (Bld) [Volume fraction] 38.2 % 40-54 [facility] Work Phone: Laboratory - Chemistry and C hemistry - challengeon 12-29-2021 CO2 [Moles/Vol] 27.0 mmol/L 21.0-32.0 [facility] Work Phone: Urea nitrogen/Creatinine [Mass ratio] 16.5 mg/mg 10-20 [facility] Work Phone: Laboratory - Hematology and Cell countson 12-29-2021 Erythrocyte distribution width (RBC) [Entitic vol] 42.5 fL 35.1-43.9 [facility] Work Phone: Erythrocyte distribution width (RBC) [Ratio] 14.2 % 11.6-14.6 [facility] Work Phone: Immature granulocytes/100 WBC (Bld) 0.700 % 0.0-0.9 [facility] Work Phone: Comment on above: IG% - Immature Granu locytes (promyelocytes, myelocytes and metamyelocytes) > 1% indicates that a LEFT SHIFT is Present. MCH (RBC) [Entitic mass] 26.9 pg 27.0-32.0 [facility] Work Phone: Nucleated RBC/100 WBC (Bld) [Ratio] 0 % 0-5 [facility] Work Phone: MCHC Auto (RBC) [Mass/Vol]on 12-29-2021 MCHC (RBC) [Mass/Vol] 32.5 g/dL 32-36 [facility] Work Phone: No Panel Informationon 12-29 Estimated Creatinine Clearance Calc 71.11 ml/min [facility] Work Phone: Estimated GFR (MDRD) Amer 91 mL/min >60 [facility] Work Phone: Comment on above: GFR Calc Estimated GFR (MDRD) Non-Af Amer 75 mL/min >60 [facility] Work Phone: Comment on above: Non- GFR Calc Platelets bldon 12-29-2021 Platelets (Bld) [#/Vol] 177 10*3/uL 150-450 [facility] Work Phone: Serum or plasma calcium antoine urement (mass/volume)on 12-29-2021 Calcium [Mass/Vol] 8.4 mg/dL 8.5-10.1 [facility] Work Phone: Serum or plasma creatinine m easurement (mass/volume)on 12-29-2021 Creatinine [Mass/Vol] 1.03 mg/dL 0.70-1.30 [facility] Work Phone: Comment on above: The validity of the calculated GFR & GFRAA in patients over 70 years has not been determined. Clinical correlation is essential. Serum or plasma urea nitroge n measurement (mass/volume)on 12-29-2021 Urea nitrogen [Mass/Vol] 17 mg/dL 7-18 [facility] Work Phone: Thin prep Papanicolaou smear with manual screeningon 12-29-2021 Thin prep Papanicolaou smear with manual screening 5 5-[address] [facility] Work Phone: Basophil percentageon 2021 Lactate [Moles/Vol] 1.9 mmol/L 0.4-2.0 [facility] Work Phone: COon 12-28-2021 Carbon Monoxide Level See Comments Normal A [facility] ([place]) Comment on above: Order Comment: See S eparate Report Performed By: #### L IP, MG, TROPHS, CK, LAC, GFR, CO, CMP ####[address] [place], [place] [address] Laboratory - Chemistry and C hemistry - challengeon 12-28-2021 Magnesium [Mass/Vol] 1.8 mg/dL 1.6-2.6 [facility] Work Phone: No Panel Informationon 12-28 Troponin I High Sensitivity 23 pg/mL 3.0-78.0 [facility] Work Phone: Comment on above: Please Note: New Thania t Units and Gender Specific Reference Ranges. For more information see Policy Stat Procedure [place] High Sensitivity Troponin (TNIH) and attachments. .Auto Diffon 12-27-2021 Basophil, Absolute 0.1 10 3/mcL Normal 0.0-0.2 [facility] ([place]) Comment on above: Performed By: #### L IP, MG, TROPHS, CK, LAC, GFR, CO, CMP #### [address] [address] Basophils/100 WBC (Bld) 0.4 % Normal 0.0-2.5 A [facility] ([place]) Comment on above: Performed By: #### L IP, MG, TROPHS, CK, LAC, GFR, CO, CMP #### [address] [address] Eosinophil, Absolute 0.1 10 3/mcL Normal 0.0-0.4 [facility] ([place]) Comment on above: Performed By: #### L IP, MG, TROPHS, CK, LAC, GFR, CO, CMP #### [address] [address] Eosinophils/100 WBC (Bld) 0.7 % Normal 0.0-7.0 [facility] ([place]) Comment on above: Performed By: #### L IP, MG, TROPHS, CK, LAC, GFR, CO, CMP #### [address] [address] Lymphocyte, Absolute 1.4 10 3/mcL Normal 0.8-3.9 [facility] ([place]) Comment on above: Performed By: #### L IP, MG, TROPHS, CK, LAC, GFR, CO, CMP #### [address] [address] Lymphocytes/100 WBC (Bld) 9.6 % Low 10.0-50.0 [facility] ([place]) Comment on above: Performed By: #### L IP, MG, TROPHS, CK, LAC, GFR, CO, CMP #### [address] [address] Monocyte, Absolute 0.8 10 3/mcL Normal 0.2-1.0 [facility] ([place]) Comment on above: Performed By: #### L IP, MG, TROPHS, CK, LAC, GFR, CO, CMP #### [address] [address] Monocytes/100 WBC (Bld) 5.3 % Normal 1.7-13.0 A [facility] ([place]) Comment on above: Performed By: #### L IP, MG, TROPHS, CK, LAC, GFR, CO, CMP #### [address] [address] Neutrophils/100 WBC (Bld) 84.0 % High 37.0-80.0 [facility] ([place]) Comment on above: Performed By: #### L IP, MG, TROPHS, CK, LAC, GFR, CO, CMP #### [address] [address] .GFRon 12-27-2021 GFR 43 ml/min/1.73sqm Normal [facility] ([place]) Comment on above: Result Comment: GFR Population mean for , Non- Americans Ages 20-29 = 116 mL/min/1.73 sq.m. Ages 30-39 = 107 mL/min/1.73 sq.m. Ages 40-49 = 99 mL/min/1.73 sq.m. Ages 50-59 = 93 mL/min/1.73 sq.m. Ages 60-69 = 85 mL/min/1.73 sq.m. Ages 70+ = 75 mL/min/1.73 sq.m. Chronic Kidney Disease: Less than 60 mL/min/1.73 square meters End Stage Renal Disease: Less than 15 mL/min/1.73 square meters Performed By: #### L IP, MG, TROPHS, CK, LAC, GFR, CO, CMP ####[address] [place], [place] [address] GFR Non- 35 ml/min/1.73sqm Normal [facility] ([place]) Comment on above: Result Comment: GFR Population mean for , Non- Americans Ages 20-29 = 116 mL/min/1.73 sq.m. Ages 30-39 = 107 mL/min/1.73 sq.m. Ages 40-49 = 99 mL/min/1.73 sq.m. Ages 50-59 = 93 mL/min/1.73 sq.m. Ages 60-69 = 85 mL/min/1.73 sq.m. Ages 70+ = 75 mL/min/1.73 sq.m. Chronic Kidney Disease: Less than 60 mL/min/1.73 square meters End Stage Renal Disease: Less than 15 mL/min/1.73 square meters Performed By: #### L IP, MG, TROPHS, CK, LAC, GFR, CO, CMP ####[address] [place], [place] [address] .MDWon 12-27-2021 Monocyte Distribution Width 15.91 Normal 0.00-20. 00 [facility] ([place]) Comment on above: Result Comment: For ED adult patients suspected of sepsis, MDW<=20.0 does not rule out sepsis or risk of sepsis Performed By: #### L IP, MG, TROPHS, CK, LAC, GFR, CO, CMP ####[address] [place], [place] [address] .NEUABSon 12-27-2021 Neutrophil, Absolute 12.6 10 3/mcL High 2.9-6.2 A [facility] ([place]) Comment on above: Performed By: #### L IP, MG, TROPHS, CK, LAC, GFR, CO, CMP ####[address] [place], [place] [address] Basophil percentageon 2021 Basophil percentage 3.8 mg/dL 2.5-4.9 [facility] Work Phone: Bilirubin [Mass/Vol] 0.80 mg/dL 0.20-1.00 [facility] Work Phone: Comment on above: For patients on eltr ombopag therapy, use of Dimension [place] TBIL is not recommended. Protein [Mass/Vol] 6.3 g/dL 6.4-8.2 [facility] Work Phone: CBCon 12-27-2021 Erythrocyte distribution width (RBC) [Ratio] 14.9 % High 11.5-14.5 [facility] ([place]) Comment on above: Performed By: #### L IP, MG, TROPHS, CK, LAC, GFR, CO, CMP #### [place] [id number] Hematocrit (Bld) [Volume fraction] 43.2 % Normal 42.0-52.0 [facility] ([place]) Comment on above: Performed By: #### L IP, MG, TROPHS, CK, LAC, GFR, CO, CMP #### [place] [id number] Hgb 14.4 G/dL Normal 14.0-18.0 [facility] ([place]) Comment on above: Performed By: #### L IP, MG, TROPHS, CK, LAC, GFR, CO, CMP #### [address] [address] MCH (RBC) [Entitic mass] 26.8 pg Low 27.0-31.2 [facility] ([place] Comment on above: Performed By: #### L IP, MG, TROPHS, CK, LAC, GFR, CO, CMP #### [address] [address] MCHC 33.4 G/dL Normal 31.8-35.4 [facility] ([place]) Comment on above: Performed By: #### L IP, MG, TROPHS, CK, LAC, GFR, CO, CMP #### [address] [address] MCV (RBC) [Entitic vol] 80.2 fL Normal 80.0-94.0 [facility] ([place]) Comment on above: Performed By: #### L IP, MG, TROPHS, CK, LAC, GFR, CO, CMP #### [address] [address] Platelet 305 10 3/mcL Normal 130-400 [facility] ([place]) Comment on above: Performed By: #### L IP, MG, TROPHS, CK, LAC, GFR, CO, CMP #### [address] [address] Platelet mean volume (Bld) [Entitic vol] 7.5 fL Normal 7.4-10.4 [facility] ([place]) Comment on above: Performed By: #### L IP, MG, TROPHS, CK, LAC, GFR, CO, CMP #### [address] [address] RBC 5.39 10 6/mcL Normal 4.04-6.13 [facility] ([place]) Comment on above: Performed By: #### L IP, MG, TROPHS, CK, LAC, GFR, CO, CMP #### [address] [address] WBC 15.0 10 3/mcL High 4.6-10.8 [facility] ([place]) Comment on above: Performed By: #### L IP, MG, TROPHS, CK, LAC, GFR, CO, CMP #### [address] [address] CKon 12-27-2021 CK [Catalytic activity/Vol] 220 U/L Normal 39-308 [facility] ([place] Comment on above: Performed By: #### L IP, MG, TROPHS, CK, LAC, GFR, CO, CMP ####[address] [address] CMPon 12-27-2021 Albumin Level 3.8 G/dL Normal 3.4-4.8 [facility] ([place] Comment on above: Performed By: #### L IP, MG, TROPHS, CK, LAC, GFR, CO, CMP ####[place] [id number] [place], [place] [address] Albumin/Globulin [Mass ratio] 1.4 {ratio} Normal 1.1-2.5 [facility] ([place] Comment on above: Performed By: #### L IP, MG, TROPHS, CK, LAC, GFR, CO, CMP ####[address] [place], [place] [address] ALP [Catalytic activity/Vol] 105 U/L Normal 40-135 [facility] ([place] Comment on above: Performed By: #### L IP, MG, TROPHS, CK, LAC, GFR, CO, CMP ####[address] [place], [place] [address] ALT [Catalytic activity/Vol] 20 U/L Normal 16-63 [facility] ([place] Comment on above: Performed By: #### L IP, MG, TROPHS, CK, LAC, GFR, CO, CMP ####[address] [place], [place] [address] AST [Catalytic activity/Vol] 16 U/L Normal 10-40 [facility] ([place]) Comment on above: Performed By: #### L IP, MG, TROPHS, CK, LAC, GFR, CO, CMP ####[address] [place], [place] [address] Bili Total 0.8 mg/dL Normal 0.2-1.0 [facility] ([place] Comment on above: Result Comment: Use of this assay is not recommended for patients undergoing treatment with eltrombopag due to the potential for falsely elevated results. Performed By: #### L IP, MG, TROPHS, CK, LAC, GFR, CO, CMP ####[address] [place], [place] [address] BUN/Creatinine Ratio 12 ratio Normal 7-27 [facility] ([place]) Comment on above: Performed By: #### L IP, MG, TROPHS, CK, LAC, GFR, CO, CMP ####[address] [place], [place] [address] Calcium [Mass/Vol] 9.4 mg/dL Normal 8.4-10.2 [facility] ([place]) Comment on above: Performed By: #### L IP, MG, TROPHS, CK, LAC, GFR, CO, CMP ####[address] [place], [place] [address] Chloride [Moles/Vol] 104 mmol/L Normal 98-107 [facility] ([place]) Comment on above: Performed By: #### L IP, MG, TROPHS, CK, LAC, GFR, CO, CMP ####[address] [place], [place] [address] CO2 [Moles/Vol] 22 mmol/L Low 23-31 [facility] ([place] Comment on above: Performed By: #### L IP, MG, TROPHS, CK, LAC, GFR, CO, CMP ####[address] [place], [place] [address] Creatinine [Mass/Vol] 1.88 mg/dL High 0.70-1.30 [facility] ([place]) Comment on above: Performed By: #### L IP, MG, TROPHS, CK, LAC, GFR, CO, CMP ####[address] [place], [place] [address] Electrolyte Balance 13.0 mEq/L Normal 4.0-15.0 [facility] ([place]) Comment on above: Performed By: #### L IP, MG, TROPHS, CK, LAC, GFR, CO, CMP ####[address] [place], [place] [address] Globulin 2.8 G/dL Normal [facility] ([place]) Comment on above: Performed By: #### L IP, MG, TROPHS, CK, LAC, GFR, CO, CMP ####[address] [place], [place] [address] Glucose [Mass/Vol] 205 mg/dL High 83-110 [facility] ([place] Comment on above: Performed By: #### L IP, MG, TROPHS, CK, LAC, GFR, CO, CMP ####[address] [place], [place] [address] Potassium [Moles/Vol] 5.2 mmol/L High 3.5-5.1 [facility] ([place]) Comment on above: Performed By: #### L IP, MG, TROPHS, CK, LAC, GFR, CO, CMP ####[address] [place], [place] [address] Sodium [Moles/Vol] 139 mmol/L Normal 136-145 [facility] ([place]) Comment on above: Performed By: #### L IP, MG, TROPHS, CK, LAC, GFR, CO, CMP ####[address] [place], [place] [address] Total Protein 6.6 G/dL Normal 6.4-8.2 [facility] ([place]) Comment on above: Performed By: #### L IP, MG, TROPHS, CK, LAC, GFR, CO, CMP ####[address] [place], [place] [address] Urea nitrogen [Mass/Vol] 23 mg/dL High 7-18 [facility] ([place] Comment on above: Performed By: #### L IP, MG, TROPHS, CK, LAC, GFR, CO, CMP ####[address] [address] [id number] 12-27-2021 Date of Onset [id number] Invalid Interpretation Code [facility] ([place] Comment on above: Performed By: #### Gabrielle OVD19, FLURSV #### [place] [address] Employed in Healthcare No [facility] ([place]) Comment on above: Performed By: #### Gabrielle OVD19, FLURSV #### [address] [address] First Test No [facility] ([place]) Comment on above: Performed By: #### Gabrielle OVD19, FLURSV #### [address] [address] Hospitalized No [facility] ([place] Comment on above: Performed By: #### Gabrielle OVD19, FLURSV #### [address] [address] ICU No Normal [facility] ([place] Comment on above: Performed By: #### C OVD19, FLURSV #### [place] [address] Not Normal [facility] ([place] Comment on above: Performed By: #### C OVD19, FLURSV #### [place] [address] Resides in Congregate Care Setting No Normal [facility] ([place] Comment on above: Performed By: #### C OVD19, FLURSV #### [place] [address] SARS-CoV-2 (COVID-19) RNA ANGELY+probe Ql (Unsp spec) Positive Abnormal Negative [facility] ([place] Comment on above: Performed By: #### C OVD19, FLURSV #### [place] [address] SARS-CoV-2 (COVID-19) RNA ANGELY+probe Ql (Unsp spec) Normal [facility] ([place] Comment on above: Result Comment: Posi tive results are indicative of the presence of SARS-CoV-2 RNA; clinical correlation with patient history and other diagnostic information is necessary to determine patient infection status. Positive results do not rule out bacterial infection or co-infection with other viruses. The agent detected may not be the definite cause of disease. Laboratories within the [facility] and its territories are required to report all positive results to the appropriate public health authorities. Detection of analyte target(s) does not imply that the corresponding virus(es) are infectious or are the causative agents for clinical symptoms. There is a risk of false positive values resulting from cross-contamination by target organisms, their nucleic acids or amplified product, or from non-specific signals in the assay. WILFRID SARS-CoV-2 Assay is a Real-Time reverse-transcriptase polymerase chain reaction (RT-PCR) based qualitative in vitro diagnostic test intended for the qualitative detection of nucleic acid from the SARS-CoV-2 in nasopharyngeal swab specimens collected from individuals suspected of COVID-19 by their healthcare provider. Testing is limited to laboratories certified under the Clinical Laboratory Improvement Amendments of 1988 (CLIA), 42 U.S.C. ?263a, to perform moderate and high complexity tests. COVID-19 Int Performed By: #### C OVD19, FLURSV #### [address] [place], [place] [address] Symptomatic as Defined by CDC No Normal [facility] ([place] Comment on above: Performed By: #### C OVD19, FLURSV #### [address] [place], [place] [address] CT HEAD OR BRAIN W/O CONTRAS Ton 12-27-2021 CT HEAD OR BRAIN W/O CONTRAST ORIGINAL EXAMINATION: CT OF THE HEAD WITHOUT CONTRAST12/27/2021 6:10 pm TECHNIQUE: CT of the head was performed without the administration of intravenous contrast. Automated exposure control, iterative reconstruction, and/or weight based adjustment of the mA/kV was utilized to reduce the radiation dose to as low as reasonably achievable. COMPARISON: None. HISTORY: ORDERING SYSTEM PROVIDED HISTORY: Reason for Exam: ams Found unresponsive on tractor today FINDINGS: There is no intracranial hemorrhage, mass, mass effect or abnormal extra-axial fluid collection. No CT evidence for acute infarction. Scattered periventricular and subcortical hypodense areas which are nonspecific, however most consistent with chronic microvascular ischemic changes. Atherosclerotic calcification of the bilateral cavernous carotid arteries and vertebral arteries. Mild parenchymal volume loss with commensurate ventricular enlargement. The skull base and calvarium demonstrate no abnormality. Mucosal thickening in the paranasal sinuses as well as mucosal retention cysts noted in the ethmoid sinuses. The mastoid air cells are clear. IMPRESSION: 1. No acute intracranial abnormalities. 2. Mild parenchymal volume loss with chronic microvascular ischemic changes. 3. Findings suggestive of paranasal sinus disease. Preliminary Report was Dictated by a Resident RECOMMENDATIONS: Unavailable Interpreted by: Maurice Dove MD Preliminary Report By: Brigitte Avilez Electronically signed By Maurice Dove MD Dictated Date: 12/27/2021 6:21:25 PM Prelim Date: 12/27/2021 6:25:57 PM Sign Date: 12/27/2021 7:53:25 PM Ordering Provider: SREEDHAR LINARES Normal [facility] ([place]) Carboxyhemoglobinon 06-15-20 22 Carboxyhemoglobin (Bld) [Mass/Vol] 1.9 % 0.0-1.5 [facility] Work Phone: Comment on above: * NON-SMOKER RANGE 1 .6 - 5.0% * LIGHT SMOKER RANGE 5.1 - 9.0% * HEAVY SMOKER RANGE FLURSVon 12-27-2021 Flu A PCR (AO) Negative Normal Negative [facility] ([place] Comment on above: Result Comment: Posi tive Results: Positive Flu A/B or RSV for by PCR. Positive test results do not rule out bacterial infection or co-infection with other pathogens. Test results should be interpreted in conjunction with other laboratory and clinical data. Negative Results: Negative for by PCR. Negative test results do not preclude influenza virus or RSV infection and should not be used as the sole basis for diagnosis, treatment, or other management decisions. There is a risk of false negative RSV results when at low concentration and in the presence of co-infection with high concentration of influenza A. Invalid Results: An Invalid result (INV) was obtained. The test was repeated with similar results. REPEAT COLLECTION AND TESTING IS RECOMMENDED. The Ad Summos Flu A/B & RSV Assay is a real-time polymerase chain reaction (PCR) based qualitative in vitro diagnostic test for the direct detection and differentiation of influenza A virus, influenza B virus, and respiratory syncytial virus (RSV) nucleic acid in nasopharyngeal swab (FARM HAND) specimens from patients with signs and symptoms of respiratory infection in conjunction with clinical and laboratory findings. The test is intended for use as an aid in the differential diagnosis of influenza A virus, influenza B virus, and RSV in humans and is not intended to detect influenza C. Performed By: #### C OVD19, FLURSV #### [facility] [address] [place], [place] [address] Flu B PCR (AO) Negative Normal Negative [facility] ([place] Comment on above: Result Comment: Posi tive Results: Positive Flu A/B or RSV for by PCR. Positive test results do not rule out bacterial infection or co-infection with other pathogens. Test results should be interpreted in conjunction with other laboratory and clinical data. Negative Results: Negative for by PCR. Negative test results do not preclude influenza virus or RSV infection and should not be used as the sole basis for diagnosis, treatment, or other management decisions. There is a risk of false negative RSV results when at low concentration and in the presence of co-infection with high concentration of influenza A. Invalid Results: An Invalid result (INV) was obtained. The test was repeated with similar results. REPEAT COLLECTION AND TESTING IS RECOMMENDED. The Wilfrid Flu A/B & RSV Assay is a real-time polymerase chain reaction (PCR) based qualitative in vitro diagnostic test for the direct detection and differentiation of influenza A virus, influenza B virus, and respiratory syncytial virus (RSV) nucleic acid in nasopharyngeal swab (FARM HAND) specimens from patients with signs and symptoms of respiratory infection in conjunction with clinical and laboratory findings. The test is intended for use as an aid in the differential diagnosis of influenza A virus, influenza B virus, and RSV in humans and is not intended to detect influenza C. Performed By: #### C OVD19, FLURSV #### [address] [address] RSV PCR (AO) Negative Normal Negative [facility] ([place] Comment on above: Result Comment: Posi tive Results: Positive Flu A/B or RSV for by PCR. Positive test results do not rule out bacterial infection or co-infection with other pathogens. Test results should be interpreted in conjunction with other laboratory and clinical data. Negative Results: Negative for by PCR. Negative test results do not preclude influenza virus or RSV infection and should not be used as the sole basis for diagnosis, treatment, or other management decisions. There is a risk of false negative RSV results when at low concentration and in the presence of co-infection with high concentration of influenza A. Invalid Results: An Invalid result (INV) was obtained. The test was repeated with similar results. REPEAT COLLECTION AND TESTING IS RECOMMENDED. The Wilfrid Flu A/B & RSV Assay is a real-time polymerase chain reaction (PCR) based qualitative in vitro diagnostic test for the direct detection and differentiation of influenza A virus, influenza B virus, and respiratory syncytial virus (RSV) nucleic acid in nasopharyngeal swab (FARM HAND) specimens from patients with signs and symptoms of respiratory infection in conjunction with clinical and laboratory findings. The test is intended for use as an aid in the differential diagnosis of influenza A virus, influenza B virus, and RSV in humans and is not intended to detect influenza C. Performed By: #### C OVD19, FLURSV #### [address] [place], [place] [address] INR in Blood by Coagulation assayon 12-27-2021 INR Coag (Bld) [Relative time] 2.4 {INR} [facility] Work Phone: LABORATORYOrdered By: Ramiro Rascon on 12-27-2021 Lactate [Moles/Vol] 3.0 mmol/L Invalid Interpretation Code 0.4 - 2.0 mmol/L AO ADM SS ADMITTED TO INTENSIVE CARE UNIT FOR CONDITION OF INTEREST:FIND:PT:^PATIENT:O RD: No (12/27/21 5:43 PM) Invalid Interpretation Code AO Auto Urine SS Albumin BCP dye [Mass/Vol] 3.8 G/dL Inval id Interpretation Code 3.4 - 4.8 G/dL AO ADM SS Albumin/Globulin [Mass ratio] 1.4 {ratio} Invalid Interpretation Code 1.1 - 2.5 ratio AO ADM SS ALP [Catalytic activity/Vol] 105 U/L Invalid Interpretation Code 40 - 135 U/L AO ADM SS ALT With P-5'-P [Catalytic activity/Vol] 20 U/L Invalid Interpretation Code 16 - 63 U/L AO ADM SS AST With P-5'-P [Catalytic activity/Vol] 16 U/L Invalid Interpretation Code 10 - 40 U/L AO ADM SS Bilirubin [Mass/Vol] 0.8 mg/dL Invalid Interpretation Code 0.2 - 1.0 mg/dL AO ADM SS Calcium [Mass/Vol] 9.4 mg/dL Invalid Interpretation Code 8.4 - 10.2 mg/dL AO ADM SS Carbon Monoxide Level See Comments (12/27/21 5:43 PM) Invalid Interpretation Code AO Sendouts SS Chloride [Moles/Vol] 104 mmol/L Invalid Interpretation Code 98 - 107 mmol/L AO ADM SS CO2 [Moles/Vol] 22 mmol/L Invalid Interpretation Code 23 - 31 mmol/L AO ADM SS CPK 220 1 Invalid Interpretation Code 39 - 308 U/L AO ADM SS Creatinine [Mass/Vol] 1.88 mg/dL Invalid Interpretation Code 0.70 - 1.30 mg/dL AO ADM SS Electrolyte Balance 13.0 mEq/L Invalid Interpretation Code 4.0 - 15.0 mEq/L AO ADM SS EMPLOYED IN A HEALTHCARE SETTING:FIND:PT:^PATIENT:OR D: No (12/27/21 5:43 PM) Invalid Interpretation Code AO Auto Urine SS FIRST TEST FOR CONDITION OF INTEREST:FIND:PT:^PATIENT:O RD: No (12/27/21 5:43 PM) Invalid Interpretation Code AO Auto Urine SS FLUAV RNA ANGELY+probe Ql (Upper resp) Negative (12/27/21 5:43 PM) Invalid Interpretation Code Negative AO Auto Urine SS FLUBV RNA ANGELY+probe Ql (Upper resp) Negative (12/27/21 5:43 PM) Invalid Interpretation Code Negative AO Auto Urine SS Globulin 2.8 G/dL Invalid Interpretation Code AO ADM SS Glucose [Mass/Vol] 205 mg/dL Invalid Interpretation Code 83 - 110 mg/dL AO ADM SS HAS SYMPTOMS RELATED TO CONDITION OF INTEREST:FIND:PT:^PATIENT:O RD: No (12/27/21 5:43 PM) Invalid Interpretation Code AO Auto Urine SS Illness or injury onset date and time [id number] Invalid Interpretation Code AO Auto Urine SS INR Coag (PPP) [Relative time] 2.7 {INR} Invalid Interpretation Code 0.9 - 1.2 ratio AO Coag SS Lactate [Moles/Vol] 4.6 mmol/L Invalid Interpretation Code 0.4 - 2.0 mmol/L AO ADM SS Lipase [Catalytic activity/Vol] 67 U/L Invalid Interpretation Code 73 - 393 U/L AO ADM SS Magnesium [Mass/Vol] 1.3 mg/dL Invalid Interpretation Code 1.8 - 2.4 mg/dL AO ADM SS Patient was hospitalized because of this condition No (12/27/21 5:43 PM) Invalid Interpretation Code AO Auto Urine SS Potassium [Moles/Vol] 5.2 mmol/L Invalid Interpretation Code 3.5 - 5.1 mmol/L AO ADM SS status Not (12/27/21 5:43 PM) Invalid Interpretation Code AO Auto Urine SS Protein [Mass/Vol] 6.6 G/dL Invalid Interpretation Code 6.4 - 8.2 G/dL AO ADM SS PT Coag (PPP) [Time] 31.6 s Invalid Interpretation Code 9.7 - 14.3 seconds AO Coag SS RESIDES IN A CONGREGATE CARE SETTING:FIND:PT:^PATIENT:OR D: No (12/27/21 5:43 PM) Invalid Interpretation Code AO Auto Urine SS RSV RNA ANGELY+probe Ql (Upper resp) Negative (12/27/21 5:43 PM) Invalid Interpretation Code Negative AO Auto Urine SS SARS-CoV-2 (COVID-19) RNA ANGELY+probe Ql (Unsp spec) Positive results are indicative of the presence of SARS-CoV-2 RNA; clinical correlation with patient history and other diagnostic information is necessary to determine patient infection status. Positive results do not rule out bacterial infection or co-infection with other viruses. The agent detected may not be the definite cause of disease. Laboratories within the [facility] and its territories are required to report all positive results to the appropriate public health authorities.Detection of analyte target(s) does not imply that the corresponding virus(es) are infectious or are the causative agents for clinical symptoms.There is a risk of false positive values resulting from cross-contamination by target organisms, their nucleic acids or amplified product, or from non-specific signals in the assay.WILFRID SARS-CoV-2 Assay is a Real-Time reverse-transcriptase polymerase chain reaction (RT-PCR) based qualitative in vitro diagnostic test intended for the qualitative detection of nucleic acid from the SARS-CoV-2 in nasopharyngeal swab specimens collected from individuals suspected of COVID-19 by their healthcare provider. Testing is limited to laboratories certified under the Clinical Laboratory Improvement Amendments of 1988 (CLIA), 42 U.S.C. 263a, to perform moderate and high complexity tests. Invalid Interpretation Code AO Auto Urine SS Sodium [Moles/Vol] 139 mmol/L Invalid Interpretation Code 136 - 145 mmol/L AO ADM SS Troponin I.cardiac DL <= 0.01 ng/mL [Mass/Vol] 11.1 ng/L Invalid Interpretation Code 0.0 - 76.2 ng/L AO ADM SS Urea nitrogen [Mass/Vol] 23 mg/dL Invalid Interpretation Code 7 - 18 mg/dL AO ADM SS Urea nitrogen/Creatinine [Mass ratio] 12 ratio Invalid Interpretation Code 7 - 27 ratio AO ADM SS LABORATORYOrdered By: Diana Waters on 12-27-2021 Basophil, Absolute 0.1 103/mcL Invalid Interpretation Code 0.0 - 0.2 10^3/mcL AO Workflow SS Basophils/100 WBC (Bld) 0.4 % Invalid Interpretation Code 0.0 - 2.5 % AO Workflow SS Eosinophil, Absolute 0.1 103/mcL Invalid Interpretation Code 0.0 - 0.4 10^3/mcL AO Workflow SS Eosinophils/100 WBC (Bld) 0.7 % Invali d Interpretation Code 0.0 - 7.0 % AO Workflow SS Erythrocyte distribution width (RBC) [Ratio] 14.9 % Invalid Interpretation Code 11.5 - 14.5 % AO Workflow SS Hematocrit (Bld) [Volume fraction] 43.2 % Invalid Interpretation Code 42.0 - 52.0 % AO Workflow SS Hgb 14.4 G/dL Invalid Interpretation Code 14.0 - 18.0 G/dL AO Workflow SS Lymphocyte, Absolute 1.4 103/mcL Invalid Interpretation Code 0.8 - 3.9 10^3/mcL AO Workflow SS Lymphocytes/100 WBC (Bld) 9.6 % Invali d Interpretation Code 10.0 - 50.0 % AO Workflow SS MCH (RBC) [Entitic mass] 26.8 pg Invalid Interpretation Code 27.0 - 31.2 pg AO Workflow SS MCHC 33.4 G/dL Invalid Interpretation Code 31.8 - 35.4 G/dL AO Workflow SS MCV (RBC) [Entitic vol] 80.2 fL Invalid Interpretation Code 80.0 - 94.0 fL AO Workflow SS Monocyte distribution width Auto (Bld) [Entitic vol] 15.91 Invalid Interpretation Code 0.00 - 20.00 AO Workflow SS Comment on above: Result Comment: For ED adult patients suspected of sepsis, MDW<=20.0 does not rule out sepsis or risk of sepsis Monocyte, Absolute 0.8 103/mcL Invalid Interpretation Code 0.2 - 1.0 10^3/mcL AO Workflow SS Monocytes/100 WBC (Bld) 5.3 % Invalid Interpretation Code 1.7 - 13.0 % AO Workflow SS Neutrophil, Absolute 12.6 103/mcL Invalid Interpretation Code 2.9 - 6.2 10^3/mcL AO Workflow SS Neutrophils/100 WBC (Bld) 84.0 % Invali d Interpretation Code 37.0 - 80.0 % AO Workflow SS Platelet 305 103/mcL Invalid Interpretation Code 130 - 400 10^3/mcL AO Workflow SS Platelet mean volume (Bld) [Entitic vol] 7.5 fL Invalid Interpretation Code 7.4 - 10.4 fL AO Workflow SS RBC 5.39 106/mcL Invalid Interpretation Code 4.04 - 6.13 10^6/mcL AO Workflow SS WBC 15.0 103/mcL Invalid Interpretation Code 4.6 - 10.8 10^3/mcL AO Workflow SS LABORATORYOrdered By: SYSTEM SYSTEM on 12-27-2021 GFR 43 ml/min/1.73sqm Invalid Interpretation Code AO Chemistry S GFR Non- 35 ml/min/1.73sqm Inval id Interpretation Code AO Chemistry S LACon 12-27-2021 Lactic Acid Lvl 3.0 mmol/L High 0.4-2.0 [facility] ([place]) Comment on above: Performed By: #### L AC #### [address] [place], [place] [address] Lactic Acid Lvl 4.6 mmol/L High 0.4-2.0 [facility] ([place]) Comment on above: Performed By: #### L IP, MG, TROPHS, CK, LAC, GFR, CO, CMP ####[address] [place], [place] [address] LIPon 12-27-2021 Lipase Level 67 U/L Low 73-393 [facility] ([place]) Comment on above: Performed By: #### L IP, MG, TROPHS, CK, LAC, GFR, CO, CMP ####[address] [place], [place] [address] Laboratory - Chemistry and C hemistry - challengeon 12-27-2021 ALP [Catalytic activity/Vol] 89 U/L 45-117 [facility] Work Phone: ALT [Catalytic activity/Vol] 26 U/L 16-61 [facility] Work Phone: Globulin (S) [Mass/Vol] 3.1 g/dL 2.2-4.2 [facility] Work Phone: Laboratory - Coagulationon 0 12-27-2021 PT Coag (PPP) [Time] 25.5 s 11.7-14.9 [facility] Work Phone: MGon 12-27-2021 Magnesium [Mass/Vol] 1.3 mg/dL Low 1.8-2.4 [facility] ([place]) Comment on above: Performed By: #### L IP, MG, TROPHS, CK, LAC, GFR, CO, CMP ####[facility] [place], [place] [address] PROon 12-27-2021 INR Coag (PPP) [Relative time] 2.7 {INR} High 0.9-1.2 [facility] ([place]) Comment on above: Result Comment: Tony bernard Dose 2.0 - 3.0 High Dose 2.5 - 3.5 The recommended therapeutic range for oral anticoagulant therapy is: LOW RISK: Prophylaxis of venous thrombosis INR: 2.0 - 3.0 Treatment of pulmonary embolism 2.0 - 3.0 Prevention of systemic embolism 2.0 - 3.0 HIGH RISK: Mechanical prosthetic valves 2.5 - 3.5 Performed By: #### P RO #### [address] [place], [place] [address] PT Coag (PPP) [Time] 31.6 s High 9.7-14.3 [facility] ([place]) Comment on above: Performed By: #### P RO #### [address] [address] Serum or plasma albumin antoine urement (mass/volume)on 12-27-2021 Albumin [Mass/Vol] 3.2 g/dL 3.2-5.0 [facility] Work Phone: Serum or plasma albumin/glob ulin mass ratioon 12-27-2021 Albumin/Globulin [Mass ratio] 1.0 {ratio} 0.9-2.4 [facility] Work Phone: TROPHSon 12-27-2021 Troponin I High Sensitivity 11.1 ng/L Normal 0.0-76.2 [facility] ([place]) Comment on above: Performed By: #### L IP, MG, TROPHS, CK, LAC, GFR, CO, CMP #### [address] [place], [place] [address] Thin prep Papanicolaou smear with manual screeningon 12-27-2021 Thin prep Papanicolaou smear with manual screening 44 U/L 15- [facility] Work Phone: XR CHEST 1 VIEWon 12-27-2021 XR CHEST 1 VIEW ORIGINAL EXAMINATION: ONE XRAY VIEW OF THE CHEST 12/27/2021 6:11 pm COMPARISON: None. HISTORY: ORDERING SYSTEM PROVIDED HISTORY: Reason for Exam: ams FINDINGS: Sternotomy wires are present in the chest wall. No pneumothorax is identified. There is no large effusion. Mild hazy airspace disease is noted at the left lung base. There is atherosclerotic calcification of the aorta. IMPRESSION: Mild hazy left basilar airspace disease could represent atelectasis versus developing infiltrate. Interpreted by: Maurice Dove MD Preliminary Report By: Maurice Dove MD Electronically signed By Maurice Dove MD Dictated Date: 12/27/2021 6:23:33 PM Prelim Date: 12/27/2021 6:23:59 PM Sign Date: 12/27/2021 6:23:59 PM Ordering Provider: SREEDHAR LINARES [facility] ([place]) Absolute lymphocyte counton 12-06-2021 Lymphocytes Auto (Unsp spec) [#/Vol] 0.42 10*3/uL 0.83-4.51 [facility] Work Phone: Basophil percentageon 2021 Basophils/100 WBC (Bld) 0.4 % 0-1 [facility] Work Phone: Chloride [Moles/Vol] 105 mmol/L 98-107 [facility] Work Phone: Eosinophils/100 WBC (Bld) 2.3 % 0-5 [facility] Work Phone: Glucose [Mass/Vol] 138 mg/dL 74-106 [facility] Work Phone: Comment on above: Fasting Glucose resu lt greater than or equal to 126 mg/dL suggests DIABETES MELLITUS per A.D.A. criteria. Neutrophils (Bld) [#/Vol] 7.5 10*3/uL 2.0-7.7 [facility] Work Phone: Neutrophils/100 WBC (Bld) 81.2 % 47-70 [facility] Work Phone: Potassium [Moles/Vol] 3.7 mmol/L 3.5-5.1 [facility] Work Phone: [phone] Sodium [Moles/Vol] 138 mmol/L 136-145 [facility] Work Phone: WBC (Bld) [#/Vol] 9.3 10*3/uL 4.4-11.0 [facility] Work Phone: Basophil percentage 0-5 SEEN /hpf 0-5 [facility] Work Phone: Bilirubin Test strip Ql (U)o n 12-06-2021 Bilirubin Ql (U) Negative Negative [facility] Work Phone: Blood erythrocytes count (nu mber/volume)on 12-06-2021 RBC (Bld) [#/Vol] 5.07 10*6/uL 4.6-6.2 [facility] Work Phone: Blood hemoglobin measurement (mass/volume)on 12-06-2021 Hemoglobin (Bld) [Mass/Vol] 13.8 g/dL 13.0-16. 5 [facility] Work Phone: Blood lymphocytes/100 leukoc yteson 12-06-2021 Lymphocytes/100 WBC (Bld) 4.5 % 19-41 [facility] Work Phone: Blood manual differential co mment interpretation (narrative result)on 12-06-2021 Manual differential comment Ori (Bld) [Interp] SCANNED [facility] Work Phone: Comment on above: LYMPHOPENIA NOTED Blood monocytes/100 leukocyt eson 12-06-2021 Monocytes/100 WBC (Bld) 8.6 % 0-10 [facility] Work Phone: Blood platelet mean volumeon 12-06-2021 Platelet mean volume (Bld) [Entitic vol] 9.2 fL 6.2-12.0 [facility] Work Phone: Determination of erythrocyte mean corpuscular volume (MCV)on 12-06-2021 MCV (RBC) [Entitic vol] 83.0 fL 80-94 [facility] Work Phone: Hematocrit Auto (Bld) [Volum e fraction]on 12-06-2021 Hematocrit (Bld) [Volume fraction] 42.1 % 40-54 [facility] Work Phone: INR in Blood by Coagulation assayon 12-06-2021 INR Coag (Bld) [Relative time] 3.3 {INR} [facility] Work Phone: Ketones Test strip Ql (U)on 12-06-2021 Ketones Ql (U) 5 mg/dl Negative [facility] Work Phone: Laboratory - Chemistry and C hemistry - challengeon 12-06-2021 CO2 [Moles/Vol] 24.0 mmol/L 21.0-32.0 [facility] Work Phone: Urea nitrogen/Creatinine [Mass ratio] 14.2 mg/mg 10-20 [facility] Work Phone: Laboratory - Coagulationon 0 12-06-2021 PT Coag (PPP) [Time] 32.9 s 11.7-14.9 [facility] Work Phone: Laboratory - Hematology and Cell countson 12-06-2021 Erythrocyte distribution width (RBC) [Entitic vol] 42.4 fL 35.1-43.9 [facility] Work Phone: Erythrocyte distribution width (RBC) [Ratio] 14.0 % 11.6-14.6 [facility] Work Phone: Immature granulocytes/100 WBC (Bld) 3.000 % 0.0-0.9 [facility] Work Phone: Comment on above: IG% - Immature Granu locytes (promyelocytes, myelocytes and metamyelocytes) > 1% indicates that a LEFT SHIFT is Present. MCH (RBC) [Entitic mass] 27.2 pg 27.0-32.0 [facility] Work Phone: Nucleated RBC/100 WBC (Bld) [Ratio] 0 % 0-5 [facility] Work Phone: MCHC Auto (RBC) [Mass/Vol]on 12-06-2021 MCHC (RBC) [Mass/Vol] 32.8 g/dL 32-36 [facility] Work Phone: Mucus LM Ql (Urine sed)on Mucus Ql (Urine sed) 0 SEEN /hpf [facility] Work Phone: Nitrite Test strip Ql (U)on 12-06-2021 Nitrite Ql (U) Negative Negative [facility] Work Phone: No Panel Informationon 12-06 Estimated Creatinine Clearance Calc 61.03 ml/min [facility] Work Phone: Estimated GFR (MDRD) Amer 76 mL/min >60 [facility] Work Phone: Comment on above: GFR Calc Estimated GFR (MDRD) Non-Af Amer 63 mL/min >60 [facility] Work Phone: Comment on above: Non- GFR Calc Troponin I High Sensitivity 5 pg/mL 3.0-78.0 [facility] Work Phone: Comment on above: Please Note: New Thania t Units and Gender Specific Reference Ranges. For more information see Policy Stat Procedure [place] High Sensitivity Troponin (TNIH) and attachments. SARS-CoV-2 & FLU Antigen (Rapid) SARS-CoV-2 (COVID 19) [facility] Work Phone: Platelets bldon 12-06-2021 Platelets (Bld) [#/Vol] 229 10*3/uL 150-450 [facility] Work Phone: Protein Test strip Ql (U)on 12-06-2021 Protein Ql (U) 30 mg/dl Negative [facility] Work Phone: Serum or plasma calcium antoine urement (mass/volume)on 12-06-2021 Calcium [Mass/Vol] 8.9 mg/dL 8.5-10.1 [facility] Work Phone: Serum or plasma creatinine m easurement (mass/volume)on 12-06-2021 Creatinine [Mass/Vol] 1.20 mg/dL 0.70-1.30 [facility] Work Phone: Comment on above: The validity of the calculated GFR & GFRAA in patients over 70 years has not been determined. Clinical correlation is essential. Serum or plasma urea nitroge n measurement (mass/volume)on 12-06-2021 Urea nitrogen [Mass/Vol] 17 mg/dL 7-18 [facility] Work Phone: Squamous epithelial cells de tection in urine sediment by light microscopyon 12-06-2021 Epithelial cells.squamous LM Ql (Urine sed) 0-5 SEEN /hpf 0-5 [facility] Work Phone: Thin prep Papanicolaou smear with manual screeningon 12-06-2021 Thin prep Papanicolaou smear with manual screening 9 5-15 [facility] Work Phone: Urine blood detectionon 11-13 RBC Ql (U) 10 /ul Negative [facility] Work Phone: RBC Ql (U) 0 SEEN /hpf 0-5 [facility] Work Phone: Urine clarityon 12-06-2021 Clarity (U) Clear Clear [facility] Work Phone: Urine color determinationon 12-06-2021 Color (U) Yellow Yellow [facility] Work Phone: Urine glucose detectionon Glucose Ql (U) 100 mg/dl Normal [facility] Work Phone: Urine leukocyte esterase det ection by dipstickon 12-06-2021 Leukocyte esterase Test strip Ql (U) 25 /ul Negative [facility] Work Phone: Urine pHon 12-06-2021 pH (U) 5.0 [pH] 5.0 - 8.0 [facility] Work Phone: Urine sediment bacteria coun t by microscopy (number/high power field)on 12-06-2021 Bacteria LM.HPF (Urine sed) [#/Area] 1 /[HPF] None Seen [facility] Work Phone: Urine specific gravity measu rementon 12-06-2021 Specific gravity (U) [Rel density] 1.025 1.002-1.03 0 [facility] Work Phone: Urobilinogen Auto test strip Ql (U)on 12-06-2021 Urobilinogen Ql (U) 1 mg/dl Normal [facility] Work Phone: GLUCOSE, BLOOD (POC)on 10-10 Glucose [Mass/Vol] 121 mg/dL Abnormal 74 - 99 mg/dL [facility] Glucose [Mass/Vol] 144 mg/dL Abnormal 74 - 99 mg/dL [facility] No Panel Informationon 10-10 [facility] CTA CHEST (GATED) W IVCONon 07-27-2021 CTA CHEST (GATED) W IVCON * * *Final Rep ort* * * DATE OF EXAM: Jul 27 2021 11:00AM [facility] [place] 0125 - CTA CHEST (GATED) W IVCON / PROCEDURE REASON: multiple diagnoses * * * * Physician Interpretation * * * * Examination: CTA of the chest dated 07/27/2021 11:00 AM Comparison: Unable to acquire images for CTA 07/22/2004, but report available for comparison History: 75 year old Male with past medical history significant for ascending aorta aneurysm and aortic valve regurgitation 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 Imaging obtained for surveillance. Technique: Multi-detector CT technology was employed (Siemens SOMATOM definition scanner). Spiral imaging with retrospective gating was performed of the chest following the IV administration of contrast material. A low-osmolar contrast agent was used (100 cc of Omnipaque 350). CT Dose-Length Product (DLP): [address] Dose Reduction Employed: Automated exposure control (AEC) For optimization of anatomic evaluation, multiplanar reconstruction, maximum intensity projections, and advanced 3-D off-line postprocessing were performed on a dedicated stand-alone workstation by the interpreting physician. RESULT: Potential study limitations: None. CHEST: The chest wall is remarkable for median sternotomy. There are scattered punctate calcifications in the anterior mediastinum (4:61 and 4:42), which may represent heterotopic ossification from prior surgery. The thyroid gland is unremarkable. There is no significant adenopathy noted in the axillae, mediastinum, and francesca. The pericardium has minimal calcification adjacent to the left ventricle (4:124). The main pulmonary artery is mildly dilated (3.0 cm) and may be seen in pulmonary arterial hypertension. Lung windows reveals a 0.9 cm right middle lobe noncalcified pulmonary nodule (4:106), which upon correlation with the report from 07/22/2004 does not appear to have significantly increased in size. There are bilateral upper lobe calcified pleural plaques. There is no abnormal pulmonary parenchymal mass, infiltrate, or pleural effusion. The cardiac chambers demonstrate normal atrioventricular and ventriculoarterial concordance, and systemic and pulmonary venous return. There is mild left atrial enlargement, otherwise the cardiac chamber sizes are normal. The coronary arteries have been reimplanted into the aortic root graft with normal courses. There are mild coronary calcifications identified, though this study was not optimized for coronary artery evaluation. VASCULAR WITH ADVANCED 3-D OFF-LINE POSTPROCESSING: Aortic valve morphology is tricuspid and has been resuspended into the aortic root graft. Postsurgical changes surrounding the aortic valve. Status post aortic root and ascending aortic replacement with a surgical graft that appears intact without evidence of anastomotic stenosis, leak or pseudoaneurysm formation. There is mild dilation of the distal ascending aorta. There is no acute aortic pathology, such as dissection, intramural hematoma, or contained rupture. The arch vessel branching pattern is normal. [employer] dimensions of the thoracic aorta are as follows: 3.5 cm at the aortic root graft 3.5 cm at the mid ascending aortic graft 3.9 cm at the [place] distal ascending aorta 3.0 cm at the mid transverse arch 2.8 cm at the proximal descending thoracic aorta 2.8 cm at the diaphragmatic hiatus Punctate calcifications likely representing sequela of prior granulomatous disease in the liver. Cholelithiasis without findings of acute cholecystitis. Right upper pole fluid attenuating renal cyst measuring 1.5 cm and the left upper pole fluid attenuating renal cyst measuring 1.7 cm. Otherwise, the limited images of the upper abdomen reveal no acute abnormalities. Degenerative changes of thoracic spine. Partially visualized dextroscoliosis of the lower thoracic/upper lumbar spine. IMPRESSION: Status post aortic root and ascending aortic replacement with surgical graft without evidence of complication. Mild dilation of the distal ascending aorta measuring up to 3.9 cm. No acute aortic pathology identified. Tricuspid aortic valve has been resuspended into the aortic root graft with expected postsurgical changes. There is a 0.9 cm right middle lobe noncalcified pulmonary nodule, which on correlation with report from 07/22/2004 does not appear to have significantly increased in size, though the study is not available for direct comparison. 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 Cholelithiasis without findings of acute cholecystitis. Cost Manager: BLAKE Transcribe Date/Time: Jul 27 2021 11:21A Dictated by : BALBIR RAYGOZA MD This examination was interpreted and the report reviewed and electronically signed by: SADE (more content not included)... Normal [facility] - Microbiology an d Antimicrobial susceptibility Bacteria identified Cx Nom (Bld) No growth in 5 days. [facility] Work Phone: No Panel Information SARS-CoV-2 & FLU Antigen (Rapid) SARS-CoV-2 (COVID 19) [facility] Work Phone: Vital Signs Date Time Vital Sign Value Performing Clinician Jimi cheyenne 10-12-2024 13:12-0400 Body height 182.[address] Luis Caldera MD Work Phone: [facility] 10-12-2024 13:12-0400 Body mass index (BMI) [Ratio] 32.3 kg/m2 Dr. Luis Caldera MD Work Phone: [facility] 10-12-2024 13:12-0400 Body weight 107.[address] Luis Caldera MD Work Phone: [facility] 10-12-2024 13:12-0400 Diastolic blood pressure 57 mm[Hg] Dr. Luis Caldera MD Work Phone: [facility] 10-12-2024 13:12-0400 Heart rate 65 /min Dr. Luis Caldera MD Work Phone: [facility] 10-12-2024 13:12-0400 Respiratory rate 18 /min Dr. Luis Caldera MD Work Phone: [facility] 10-12-2024 13:12-0400 SaO2% (BldA) [Mass fraction] 99 % Dr. Luis Caldera MD Work Phone: 4(150)544-476498 [place] [address] 10-12-2024 13:12-0400 Systolic blood pressure 117 mm[Hg] Dr. Luis Caldera MD Work Phone: 1(516)091-910798 [place] [address] 10-07-2023 14:18-0400 Body height 182.[address] Luis Caldera Work Phone: 1(630)678-294698 [place] [address] 10-07-2023 14:18-0400 Body mass index (BMI) [Ratio] 29.8 kg/m2 Dr. Luis Caldera Work Phone: 2(005)094-134698 [place] [address] 10-07-2023 14:18-0400 Body weight 99.[address] Luis Caldera Work Phone: 5(929)631-184598 [place] [address] 10-07-2023 14:18-0400 Diastolic blood pressure 66 mm[Hg] Dr. Luis Caldera Work Phone: 2(154)140-038798 [place] [address] 10-07-2023 14:18-0400 Heart rate 67 /min Dr. Luis Caldera Work Phone: 0(632)974-836198 [place] [address] 10-07-2023 14:18-0400 Respiratory rate 16 /min Dr. Luis Caldera Work Phone: 5(488)581-179298 [place] [address] 10-07-2023 14:18-0400 Systolic blood pressure 112 mm[Hg] Dr. Luis Caldera Work Phone: 4(299)913-225598 [place] [address] 06-03-2023 12:50-0500 Body temperature 97.2 [degF] Dr. Luis Caldera Work Phone: 8(516)680-412498 [place] [address] 06-03-2023 12:50-0500 Diastolic blood pressure 90 mm[Hg] Dr. Luis Caldera Work Phone: 7(989)902-784898 [place] [address] 06-03-2023 12:50-0500 Heart rate 85 /min Dr. Luis Caldera Work Phone: 5(074)412-391898 [place] [address] 06-03-2023 12:50-0500 Respiratory rate 16 /min Dr. Luis Caldera Work Phone: [facility] 06-03-2023 12:50-0500 SaO2% (BldA) [Mass fraction] 97 % Dr. Luis Caldera Work Phone: [facility] 06-03-2023 12:50-0500 Systolic blood pressure 134 mm[Hg] Dr. Luis Caldera Work Phone: [facility] 06-03-2023 11:45-0500 Body height 182.[address] Luis Caldera Work Phone: [facility] 06-03-2023 11:45-0500 Body mass index (BMI) [Ratio] 30.5 kg/m2 Dr. Luis Caldera Work Phone: [facility] 06-03-2023 11:45-0500 Body weight 102.[address] Luis Caldera Work Phone: [facility] 03-27-2023 13:51-0400 Body height 185.[address] Maggy Roberts Work Phone: [facility] 03-27-2023 13:51-0400 Body mass index (BMI) [Ratio] 34.7 kg/m2 Dr. Maggy Roberts Work Phone: [facility] 03-27-2023 13:51-0400 Body weight 119.[address] Maggy Roberts Work Phone: [facility] 03-27-2023 13:51-0400 Diastolic blood pressure 78 mm[Hg] Dr. Maggy Roberts Work Phone: [facility] 03-27-2023 13:51-0400 Heart rate 97 /min Dr. Maggy Roberts Work Phone: [facility] 03-27-2023 13:51-0400 Respiratory rate 18 /min Dr. Maggy Roberts Work Phone: [facility] 03-27-2023 13:51-0400 SaO2% (BldA) [Mass fraction] 98 % Dr. Maggy Roberts Work Phone: 8(258)803-091303 [place] [address] 03-27-2023 13:51-0400 Systolic blood pressure 118 mm[Hg] Dr. Maggy Roberts Work Phone: 3(548)485-352434 [address] 02-13-2023 15:02-0400 Body temperature 97 [degF] Dr. Maggy Roberts Work Phone: 3(637)070-800134 [address] 02-13-2023 15:02-0400 Diastolic blood pressure 70 mm[Hg] Dr. Maggy Roberts Work Phone: 5(179)039-542034 [address] 02-13-2023 15:02-0400 Heart rate 82 /min Dr. Maggy Roberts Work Phone: 0(681)914-345592 [place] [address] 02-13-2023 15:02-0400 Respiratory rate 16 /min Dr. Maggy Roberts Work Phone: 4(376)255-064492 [place] [address] 02-13-2023 15:02-0400 SaO2% (BldA) [Mass fraction] 100 % Dr. Maggy Roberts Work Phone: 4(289)216-913403 [place] [address] 02-13-2023 15:02-0400 Systolic blood pressure 134 mm[Hg] Dr. Maggy Roberts Work Phone: 8(729)201-091292 [place] [address] 02-12-2023 13:33-0400 Body height 185.[address] Maggy Roberts Work Phone: 3(836)314-183292 [place] [address] 02-12-2023 13:33-0400 Body weight 102.[address] Maggy Roberts Work Phone: 3(822)570-133703 [place] [address] 02-11-2023 20:45-0400 Body mass index (BMI) [Ratio] 30 kg/m2 Dr. Maggy Roberts Work Phone: 9(062)732-218503 [place] [address] 02-11-2023 18:53-0400 Body temperature 99.1 [degF] Dr. Maggy Roberts Work Phone: 7(159)229-539934 [address] 02-11-2023 18:53-0400 Diastolic blood pressure 71 mm[Hg] Dr. Maggy Roberts Work Phone: 3(483)215-316192 [place] [address] 02-11-2023 18:53-0400 Heart rate 88 /min Dr. Maggy Roberts Work Phone: 6(120)437-300592 [place] [address] 02-11-2023 18:53-0400 Respiratory rate 18 /min Dr. Maggy Roberts Work Phone: 0(222)164-021392 [place] [address] 02-11-2023 18:53-0400 SaO2% (BldA) [Mass fraction] 93 % Dr. Maggy Roberts Work Phone: 4(886)835-462892 [place] [address] 02-11-2023 18:53-0400 Systolic blood pressure 129 mm[Hg] Dr. Maggy Roberts Work Phone: 5(066)440-608192 [place] [address] 02-11-2023 16:21-0400 Body height 185.[address] Maggy Roberts Work Phone: 0(272)974-417792 [place] [address] 02-11-2023 00:58-0400 Body temperature 98.4 [degF] Dr. Maggy Roberts Work Phone: 0(281)000-934492 [place] [address] 02-11-2023 00:58-0400 Diastolic blood pressure 62 mm[Hg] Dr. Maggy Roberts Work Phone: 4(102)584-639292 [place] [address] 02-11-2023 00:58-0400 Heart rate 74 /min Dr. Maggy Roberts Work Phone: 3(033)399-189392 [place] [address] 02-11-2023 00:58-0400 Respiratory rate 26 /min Dr. Maggy Roberts Work Phone: 1(713)650-578192 [place] [address] 02-11-2023 00:58-0400 SaO2% (BldA) [Mass fraction] 95 % Dr. Maggy Roberts Work Phone: 0(602)547-484892 [place] [address] 02-11-2023 00:58-0400 Systolic blood pressure 124 mm[Hg] Dr. Maggy Roberts Work Phone: 5(813)372-572392 [place] [address] 02-10-2023 21:23-0400 Body height 185.[address] Maggy Roberts Work Phone: 1(037)779-206392 [place] [address] 02-10-2023 21:23-0400 Body mass index (BMI) [Ratio] 30.9 kg/m2 Dr. Maggy Roberts Work Phone: 4(483)188-693692 [place] [address] 02-10-2023 21:23-0400 Body weight 106.[address] Maggy Roberts Work Phone: 7(001)834-768792 [place] [address] 02-05-2023 15:10-0400 Body temperature 97.4 [degF] Dr. Maggy Roberts Work Phone: 2(778)362-122892 [place] [address] 02-05-2023 15:10-0400 Diastolic blood pressure 77 mm[Hg] Dr. Maggy Roberts Work Phone: 5(787)695-614292 [place] [address] 02-05-2023 15:10-0400 Heart rate 85 /min Dr. Maggy Roberts Work Phone: 1(988)775-051692 [place] [address] 02-05-2023 15:10-0400 Respiratory rate 18 /min Dr. Maggy Roberts Work Phone: 7(058)328-368792 [place] [address] 02-05-2023 15:10-0400 SaO2% (BldA) [Mass fraction] 94 % Dr. Maggy Roberts Work Phone: 3(662)784-351492 [place] [address] 02-05-2023 15:10-0400 Systolic blood pressure 131 mm[Hg] Dr. Maggy Roberts Work Phone: 2(620)277-673192 [place] [address] 02-05-2023 05:36-0400 Body mass index (BMI) [Ratio] 30.6 kg/m2 Dr. Maggy Roberts Work Phone: 6(294)492-919492 [place] [address] 02-05-2023 05:36-0400 Body weight 105.[address] Maggy Roberts Work Phone: 7(083)647-011392 [place] [address] 02-01-2023 00:17-0400 Inhaled oxygen flow rate 2 L/min Dr. Maggy Roberts Work Phone: [facility] 01-27-2023 21:04-0400 Body temperature 98.1 [degF] Dr. Maggy Roberts Work Phone: 7(770)541-112903 [place] [address] 01-27-2023 21:04-0400 Diastolic blood pressure 48 mm[Hg] Dr. Maggy Roberts Work Phone: 9(674)940-817103 [place] [address] 01-27-2023 21:04-0400 Heart rate 79 /min Dr. Maggy Roberts Work Phone: 4(790)725-802603 [place] [address] 01-27-2023 21:04-0400 Respiratory rate 16 /min Dr. Maggy Roberts Work Phone: 4(064)676-272834 [address] 01-27-2023 21:04-0400 SaO2% (BldA) [Mass fraction] 94 % Dr. Maggy Roberts Work Phone: 2(415)885-685003 [place] [address] 01-27-2023 21:04-0400 Systolic blood pressure 111 mm[Hg] Dr. Maggy Robrets Work Phone: 5(893)752-592103 [place] [address] 01-27-2023 17:58-0400 Body height 185.[address] Maggy Roberts Work Phone: 8(388)132-505092 [place] [address] 01-27-2023 17:58-0400 Body mass index (BMI) [Ratio] 30.5 kg/m2 Dr. Maggy Roberts Work Phone: 5(713)656-977003 [place] [address] 01-27-2023 17:58-0400 Body weight [address] Maggy Roberts Work Phone: [facility] 01-26-2023 14:13-0400 Body temperature 98.6 [degF] Dr. Maggy Roberts Work Phone: 5(939)836-322103 [place] [address] 01-26-2023 14:13-0400 Diastolic blood pressure 46 mm[Hg] Dr. Maggy Roberts Work Phone: 3(655)931-408203 [place] [address] 01-26-2023 14:13-0400 Heart rate 60 /min Dr. Maggy Roberts Work Phone: [facility] 01-26-2023 14:13-0400 Respiratory rate 18 /min Dr. Maggy Roberts Work Phone: 3(220)235-515003 [place] [address] 01-26-2023 14:13-0400 SaO2% (BldA) [Mass fraction] 97 % Dr. Maggy Roberts Work Phone: 2(251)227-117103 [place] [address] 01-26-2023 14:13-0400 Systolic blood pressure 134 mm[Hg] Dr. Maggy Roberts Work Phone: 9(735)354-443192 [place] [address] 01-25-2023 05:27-0400 Body mass index (BMI) [Ratio] 28.2 kg/m2 Dr. Maggy Roberts Work Phone: 4(215)233-115403 [place] [address] 01-25-2023 05:27-0400 Body weight 96.[address] Maggy Roberts Work Phone: 8(084)632-157292 [place] [address] 01-24-2023 16:00-0400 Inhaled oxygen flow rate 93 L/min Dr. Maggy Roberts Work Phone: 4(409)337-118192 [place] [address] 01-23-2023 14:42-0400 Body height 185.[address] Maggy Roberts Work Phone: 1(133)508-440303 [place] [address] 01-21-2023 11:32-0400 Body temperature 97.8 [degF] Dr. Maggy Roberts Work Phone: 5(459)507-769903 [place] [address] 01-21-2023 11:32-0400 Diastolic blood pressure 55 mm[Hg] Dr. Maggy Roberts Work Phone: 7(723)385-035003 [place] [address] 01-21-2023 11:32-0400 Heart rate 83 /min Dr. Maggy Roberts Work Phone: 3(262)388-390903 [place] [address] 01-21-2023 11:32-0400 Respiratory rate 23 /min Dr. Maggy Roberts Work Phone: 7(675)164-972603 [place] [address] 01-21-2023 11:32-0400 SaO2% (BldA) [Mass fraction] 93 % Dr. Maggy Roberts Work Phone: 8(209)596-551103 [place] [address] 01-21-2023 11:32-0400 Systolic blood pressure 133 mm[Hg] Dr. Maggy Roberts Work Phone: 0(486)454-388092 [place] [address] 01-21-2023 08:21-0400 Body height 185.[address] Maggy Roberts Work Phone: 4(050)448-715392 [place] [address] 01-21-2023 08:21-0400 Body mass index (BMI) [Ratio] 28.9 kg/m2 Dr. Maggy Roberts Work Phone: 6(260)654-556592 [place] [address] 01-21-2023 08:21-0400 Body weight 99.[address] Maggy Roberts Work Phone: 3(166)982-651492 [place] [address] 01-08-2023 11:58-0400 Body temperature 98.3 [degF] Dr. Maggy Roberts Work Phone: 0(077)391-706292 [place] [address] 01-08-2023 11:58-0400 Diastolic blood pressure 70 mm[Hg] Dr. Maggy Roberts Work Phone: 1(243)432-384092 [place] [address] 01-08-2023 11:58-0400 Heart rate 60 /min Dr. Maggy Roberts Work Phone: 9(511)261-173592 [place] [address] 01-08-2023 11:58-0400 Respiratory rate 14 /min Dr. Maggy Roberts Work Phone: 8(886)337-830592 [place] [address] 01-08-2023 11:58-0400 SaO2% (BldA) [Mass fraction] 96 % Dr. Maggy Roberts Work Phone: 2(593)316-489492 [place] [address] 01-08-2023 11:58-0400 Systolic blood pressure 108 mm[Hg] Dr. Maggy Roberts Work Phone: 5(541)306-242792 [place] [address] 01-08-2023 06:00-0400 Body mass index (BMI) [Ratio] 38.4 kg/m2 Dr. Maggy Roberts Work Phone: 5(156)069-169392 [place] [address] 01-08-2023 06:00-0400 Body weight [address] Maggy Roberts Work Phone: [facility] 01-04-2023 17:25-0400 Diastolic blood pressure 63 mm[Hg] [facility] 01-04-2023 17:25-0400 Heart rate 63 /min [facility] 01-04-2023 17:25-0400 Respiratory rate 12 /min [facility] 01-04-2023 17:25-0400 SaO2% (BldA) [Mass fraction] 98 % [facility] 01-04-2023 17:25-0400 Systolic blood pressure 138 mm[Hg] [facility] 01-04-2023 16:19-0400 Body temperature 96.9 [degF] [facility] 01-04-2023 11:15-0400 Body mass index (BMI) [Ratio] 30.4 kg/m2 [facility] 01-04-2023 11:15-0400 Body weight 104.7 kg [facility] 01-04-2023 10:59-0400 Body height 185.42 cm [facility] 09-07-2022 11:01-0500 Body height 185.4 cm Jojo Kaur MD Work Phone: [facility] 09-07-2022 11:01-0500 Body weight 113.4 kg Jojo Kaur MD Work Phone: [facility] 09-07-2022 11:01-0500 Diastolic blood pressure 57 mm[Hg] Jojo Kaur MD Work Phone: [facility] 09-07-2022 11:01-0500 Heart rate 64 /min Jojo Kaur MD Work Phone: [facility] 09-07-2022 11:01-0500 Respiratory rate 16 /min Jojo Kaur MD Work Phone: [facility] 09-07-2022 11:01-0500 SaO2% (BldA) [Mass fraction] 99 % Jojo Kaur MD Work Phone: [facility] 09-07-2022 11:01-0500 Systolic blood pressure 124 mm[Hg] Jojo Kaur MD Work Phone: [facility] 08-09-2022 16:35-0500 Body weight 113.4 kg Abdulaziz Caldera MD Work Phone: [facility] 08-09-2022 16:35-0500 Diastolic blood pressure 62 mm[Hg] Abdulaziz Caldera MD Work Phone: [facility] 08-09-2022 16:35-0500 Heart rate 64 /min Abdulaziz Caldera MD Work Phone: [facility] 08-09-2022 16:35-0500 Respiratory rate 16 /min Abdulaziz Caldera MD Work Phone: [facility] 08-09-2022 16:35-0500 SaO2% (BldA) [Mass fraction] 96 % Abdulaziz Caldera MD Work Phone: [facility] 08-09-2022 16:35-0500 Systolic blood pressure 112 mm[Hg] Abdulaziz Caldera MD Work Phone: [facility] 07-11-2022 16:22-0500 Body temperature 97.9 [degF] Dr. Luis Caldera Work Phone: [facility] Work Phone: 07-11-2022 16:22-0500 Diastolic blood pressure 65 mm[Hg] Dr. Luis Caldera Work Phone: [facility] Work Phone: 07-11-2022 16:22-0500 Heart rate 75 /min Dr. Luis Caldera Work Phone: [facility] Work Phone: 07-11-2022 16:22-0500 Respiratory rate 17 /min Dr. Luis Caldera Work Phone: [facility] Work Phone: 07-11-2022 16:22-0500 SaO2% (BldA) [Mass fraction] 96 % Dr. Luis Caldera Work Phone: [facility] Work Phone: 07-11-2022 16:22-0500 Systolic blood pressure 114 mm[Hg] Dr. Luis Caldera Work Phone: [facility] Work Phone: 07-11-2022 03:04-0500 Body weight 114.[address] Luis Caldera Work Phone: [facility] Work Phone: 07-10-2022 14:29-0500 Body height 185.[address] Luis Caldera Work Phone: [facility] Work Phone: 07-10-2022 03:04-0500 Body mass index (BMI) [Ratio] 33.6 kg/m2 Dr. Luis Caldera Work Phone: [facility] Work Phone: 07-09-2022 21:17-0500 Inhaled oxygen flow rate 97 L/min Dr. Luis Caldera Work Phone: [facility] Work Phone: 04-17-2022 11:23-0400 Body height 185.4 cm Jojo Kaur MD Work Phone: [facility] 04-17-2022 11:23-0400 Body weight 114.31 kg Jojo Kaur MD Work Phone: [facility] 04-17-2022 11:23-0400 Diastolic blood pressure 71 mm[Hg] Jojo Kaur MD Work Phone: [facility] 04-17-2022 11:23-0400 Heart rate 72 /min Jojo Kaur MD Work Phone: [facility] 04-17-2022 11:23-0400 Respiratory rate 18 /min Jojo Kaur MD Work Phone: [facility] 04-17-2022 11:23-0400 SaO2% (BldA) [Mass fraction] 98 % Jojo Kaur MD Work Phone: [facility] 04-17-2022 11:23-0400 Systolic blood pressure 116 mm[Hg] Jojo Kaur MD Work Phone: [facility] 04-16-2022 13:09-0400 Body height 185.4 cm Abdulaziz Caldera MD Work Phone: [facility] 04-16-2022 13:09-0400 Body weight 114.31 kg Abdulaziz Caldera MD Work Phone: [facility] 04-16-2022 13:09-0400 Diastolic blood pressure 72 mm[Hg] Abdulaziz Caldera MD Work Phone: [facility] 04-16-2022 13:09-0400 Heart rate 70 /min Abdulaziz Caldera MD Work Phone: [facility] 04-16-2022 13:09-0400 Respiratory rate 16 /min Abdulaziz Caldera MD Work Phone: [facility] 04-16-2022 13:09-0400 SaO2% (BldA) [Mass fraction] 98 % Abdulaziz Caldera MD Work Phone: [facility] 04-16-2022 13:09-0400 Systolic blood pressure 132 mm[Hg] Abdulaziz Caldera MD Work Phone: [facility] 04-06-2022 09:36-0400 Body weight 114.31 kg Roselia Podlogar SYSTEMS INTEGRATION MANAGER.BARGAIN TABLE CLERK Work Phone: [facility] 04-06-2022 09:36-0400 Diastolic blood pressure 62 mm[Hg] Roselia Podlogar SYSTEMS INTEGRATION MANAGER.BARGAIN TABLE CLERK Work Phone: [facility] 04-06-2022 09:36-0400 Heart rate 62 /min Roselia Podlogar SYSTEMS INTEGRATION MANAGER.BARGAIN TABLE CLERK Work Phone: [facility] 04-06-2022 09:36-0400 Respiratory rate 16 /min Roselia Podlogar SYSTEMS INTEGRATION MANAGER.BARGAIN TABLE CLERK Work Phone: [facility] 04-06-2022 09:36-0400 SaO2% (BldA) [Mass fraction] 97 % Roselia Podlogar SYSTEMS INTEGRATION MANAGER.BARGAIN TABLE CLERK Work Phone: [facility] 04-06-2022 09:36-0400 Systolic blood pressure 112 mm[Hg] Roselia Podlogar SYSTEMS INTEGRATION MANAGER.BARGAIN TABLE CLERK Work Phone: [facility] 03-07-2022 11:12-0400 Body weight 114.76 kg Abdulaziz Caldera MD Work Phone: [facility] 03-07-2022 11:12-0400 Diastolic blood pressure 70 mm[Hg] Abdulaziz Caldera MD Work Phone: [facility] 03-07-2022 11:12-0400 Heart rate 64 /min Abdulaziz Caldera MD Work Phone: [facility] 03-07-2022 11:12-0400 Respiratory rate 16 /min Abdulaziz Caldera MD Work Phone: [facility] 03-07-2022 11:12-0400 Systolic blood pressure 118 mm[Hg] Abdulaziz Caldera MD Work Phone: [facility] 03-05-2022 12:00-0400 Diastolic blood pressure 60 mm[Hg] Rosa Elena Lemon PT [facility] 03-05-2022 12:00-0400 Systolic blood pressure 112 mm[Hg] Rosa Elena Lemsameera PT [facility] 03-02-2022 19:48-0400 Diastolic blood pressure 79 mm[Hg] Dr. Luis Caldera Work Phone: [facility] Work Phone: 03-02-2022 19:48-0400 Heart rate 77 /min Dr. Luis Caldera Work Phone: [facility] Work Phone: 03-02-2022 19:48-0400 SaO2% (BldA) [Mass fraction] 97 % Dr. Luis Caldera Work Phone: [facility] Work Phone: 03-02-2022 19:48-0400 Systolic blood pressure 131 mm[Hg] Dr. Luis Caldera Work Phone: [facility] Work Phone: 03-02-2022 18:12-0400 Respiratory rate 17 /min Dr. Luis Caldera Work Phone: [facility] Work Phone: 03-02-2022 14:22-0400 Body height 185.[address] Luis Caldera Work Phone: [facility] Work Phone: 03-02-2022 14:22-0400 Body mass index (BMI) [Ratio] 32.3 kg/m2 Dr. Luis Caldera Work Phone: [facility] Work Phone: 03-02-2022 14:22-0400 Body temperature 98.9 [degF] Dr. Luis Caldera Work Phone: [facility] Work Phone: 03-02-2022 14:22-0400 Body weight 111.[address] Luis Caldera Work Phone: [facility] Work Phone: 01-12-2022 08:00-0400 Diastolic blood pressure 78 mm[Hg] Rosa Elena Lemon PT [facility] 01-12-2022 08:00-0400 Systolic blood pressure 130 mm[Hg] Rosa Elena Lemon PT [facility] 01-05-2022 09:56-0400 Body height 185.4 cm Jojo Kaur MD Work Phone: [facility] 01-05-2022 09:56-0400 Body weight 111.58 kg Jojo Kaur MD Work Phone: [facility] 01-05-2022 09:56-0400 Diastolic blood pressure 62 mm[Hg] Jojo Kaur MD Work Phone: [facility] 01-05-2022 09:56-0400 Heart rate 58 /min Jojo Kaur MD Work Phone: [facility] 01-05-2022 09:56-0400 Respiratory rate 16 /min Jojo Kaur MD Work Phone: [facility] 01-05-2022 09:56-0400 SaO2% (BldA) [Mass fraction] 97 % Jojo Kaur MD Work Phone: [facility] 01-05-2022 09:56-0400 Systolic blood pressure 117 mm[Hg] Jojo Kaur MD Work Phone: [facility] 01-01-2022 10:12-0400 Body temperature 97.39 [degF] Abdulaziz Caldera MD Work Phone: [facility] 01-01-2022 10:12-0400 Body weight 111.77 kg Abdulaziz Caldera MD Work Phone: [facility] 01-01-2022 10:12-0400 Diastolic blood pressure 64 mm[Hg] Abdulaziz Caldera MD Work Phone: [facility] 01-01-2022 10:12-0400 Heart rate 47 /min Abdulaziz Caldera MD Work Phone: [facility] 01-01-2022 10:12-0400 Respiratory rate 18 /min Abdulaziz Caldera MD Work Phone: [facility] 01-01-2022 10:12-0400 SaO2% (BldA) [Mass fraction] 98 % Abdulaziz Caldera MD Work Phone: [facility] 01-01-2022 10:12-0400 Systolic blood pressure 112 mm[Hg] Abdulaziz Caldera MD Work Phone: [facility] 01-01-2022 08:55-0400 Body weight 112.49 kg Justina Monique APRN.CNP Work Phone: [facility] 01-01-2022 08:55-0400 Diastolic blood pressure 74 mm[Hg] Justina Leonie SYSTEMS INTEGRATION MANAGER.BARGAIN TABLE CLERK Work Phone: [facility] 01-01-2022 08:55-0400 Heart rate 60 /min Justina Leonie SYSTEMS INTEGRATION MANAGER.BARGAIN TABLE CLERK Work Phone: [facility] 01-01-2022 08:55-0400 Respiratory rate 18 /min Justina Leonie SYSTEMS INTEGRATION MANAGER.BARGAIN TABLE CLERK Work Phone: [facility] 01-01-2022 08:55-0400 Systolic blood pressure 147 mm[Hg] Justina Vizcarraely SYSTEMS INTEGRATION MANAGER.BARGAIN TABLE CLERK Work Phone: [facility] 12-29-2021 08:54-0400 Heart rate 69 /min Dr. Luis Caldera Work Phone: [facility] Work Phone: 12-29-2021 08:50-0400 Body temperature 97.7 [degF] Dr. Luis Caldera Work Phone: [facility] Work Phone: 12-29-2021 08:50-0400 Diastolic blood pressure 68 mm[Hg] Dr. Luis Caldera Work Phone: [facility] Work Phone: 12-29-2021 08:50-0400 Respiratory rate 18 /min Dr. Luis Caldera Work Phone: [facility] Work Phone: 12-29-2021 08:50-0400 SaO2% (BldA) [Mass fraction] 96 % Dr. Luis Caldera Work Phone: [facility] Work Phone: 12-29-2021 08:50-0400 Systolic blood pressure 139 mm[Hg] Dr. Luis Caldera Work Phone: [facility] Work Phone: 12-27-2021 22:36-0400 Body height 185.[address] Luis Caldera Work Phone: [facility] Work Phone: 12-27-2021 22:36-0400 Body mass index (BMI) [Ratio] 32.8 kg/m2 Dr. Luis Caldera Work Phone: [facility] Work Phone: 12-27-2021 22:36-0400 Body weight 112.[address] Luis Caldera Work Phone: [facility] Work Phone: 12-27-2021 21:22-0400 Diastolic blood pressure 71 mm[Hg] DR MELANIA WORKMAN MD [facility] 12-27-2021 21:22-0400 Heart rate 73 /min DR MELANIA WORKMAN MD [facility] 12-27-2021 21:22-0400 Respiratory rate 24 /min DR MELANIA WORKMAN MD [facility] 12-27-2021 21:22-0400 Systolic blood pressure 121 mm[Hg] DR MELANIA WORKMAN MD [facility] 12-27-2021 20:06-0400 Diastolic blood pressure 59 mm[Hg] DR MELANIA WORKMAN MD [facility] 12-27-2021 20:06-0400 Heart rate 80 /min DR MELANIA WORKMAN MD [facility] 12-27-2021 20:06-0400 Respiratory rate 26 /min DR MELANIA WORKMAN MD [facility] 12-27-2021 20:06-0400 Systolic blood pressure 112 mm[Hg] DR MELANIA WORKMAN MD [facility] 12-27-2021 19:19-0400 Body temperature 98.6 [degF] DR MELANIA WORKMAN MD [facility] 12-27-2021 19:19-0400 Diastolic blood pressure 76 mm[Hg] DR MELANIA WORKMAN MD [facility] 12-27-2021 19:19-0400 Heart rate 82 /min DR MELANIA WORKMAN MD [facility] 12-27-2021 19:19-0400 Respiratory rate 26 /min DR MELANIA WORKMAN MD [facility] 12-27-2021 19:19-0400 Systolic blood pressure 138 mm[Hg] DR MELANIA WORKMAN MD [facility] 12-27-2021 17:36-0400 Body temperature 102.56 [degF] DR MELANIA WORKMAN MD [facility] 12-27-2021 17:36-0400 Body weight [address] MELANIA WORKMAN MD [facility] 12-27-2021 17:36-0400 Heart rate 104 /min DR MELANIA WORKMAN MD [facility] 12-14-2021 15:10-0400 Body temperature 98.2 [degF] Abdulaziz Caldera MD Work Phone: [facility] 12-14-2021 15:10-0400 Body weight 110.77 kg Abdulaziz Caldera MD Work Phone: [facility] 12-14-2021 15:10-0400 Diastolic blood pressure 70 mm[Hg] Abdulaziz Caldera MD Work Phone: [facility] 12-14-2021 15:10-0400 Heart rate 54 /min Abdulaziz Caldera MD Work Phone: [facility] 12-14-2021 15:10-0400 Respiratory rate 16 /min Abdulaziz Caldera MD Work Phone: [facility] 12-14-2021 15:10-0400 SaO2% (BldA) [Mass fraction] 96 % Abdulaziz Caldera MD Work Phone: [facility] 12-14-2021 15:10-0400 Systolic blood pressure 130 mm[Hg] Abdulaziz Caldera MD Work Phone: [facility] 12-08-2021 16:23-0400 Diastolic blood pressure 64 mm[Hg] Abdulaziz Caldera MD Work Phone: [facility] 12-08-2021 16:23-0400 Heart rate 85 /min Abdulaziz Caldera MD Work Phone: [facility] 12-08-2021 16:23-0400 Systolic blood pressure 110 mm[Hg] Abdulaziz Caldera MD Work Phone: [facility] 12-07-2021 00:58-0400 SaO2% (BldA) [Mass fraction] 97 % [facility] Work Phone: 12-06-2021 22:59-0400 Body height 185.42 cm [facility] Work Phone: 12-06-2021 22:59-0400 Body mass index (BMI) [Ratio] 33.6 kg/m2 [facility] Work Phone: 12-06-2021 22:59-0400 Body temperature 97.7 [degF] [facility] Work Phone: 12-06-2021 22:59-0400 Body weight 115.66 kg [facility] Work Phone: 12-06-2021 22:59-0400 Diastolic blood pressure 78 mm[Hg] [facility] Work Phone: 12-06-2021 22:59-0400 Heart rate 90 /min [facility] Work Phone: 12-06-2021 22:59-0400 Respiratory rate 16 /min [facility] Work Phone: 12-06-2021 22:59-0400 Systolic blood pressure 149 mm[Hg] [facility] Work Phone: 10-23-2021 13:05-0400 Body temperature 97.3 [degF] Marcella [place] PA-C Work Phone: [facility] 10-23-2021 13:05-0400 Body weight 114.58 kg Marcella Xavier PA-C Work Phone: [facility] 10-23-2021 13:05-0400 Diastolic blood pressure 56 mm[Hg] Marcella [place] PA-C Work Phone: [facility] 10-23-2021 13:05-0400 Heart rate 85 /min Marcella Xavier PA-C Work Phone: [facility] 10-23-2021 13:05-0400 SaO2% (BldA) [Mass fraction] 98 % Marcella Xavier PA-C Work Phone: [facility] 10-23-2021 13:05-0400 Systolic blood pressure 132 mm[Hg] Marcella Xavier PA-C Work Phone: [facility] 10-10-2021 10:07-0400 Diastolic blood pressure 68 mm[Hg] Richard Jones MD Work Phone: [facility] 10-10-2021 10:07-0400 Heart rate 69 /min Richard Jones MD Work Phone: [facility] 10-10-2021 10:07-0400 Respiratory rate 16 /min Richard Jones MD Work Phone: [facility] 10-10-2021 10:07-0400 SaO2% (BldA) [Mass fraction] 98 % Richard Jones MD Work Phone: [facility] 10-10-2021 10:07-0400 Systolic blood pressure 150 mm[Hg] Richard Jones MD Work Phone: [facility] 10-10-2021 08:01-0400 Body temperature 97 [degF] Richard Jones MD Work Phone: [facility] Encounters Encounter Date Encounter Type Care Provider Facility Start: 12-16-2024 ambulatory Walter Stewart ty:[facility] Start: 11-24-2024 ambulatory Walter Stewart ty:[facility] Start: 10-12-2024 End: 10-12-[address] Olga Lidia Rasheed MD -[facility] Work Phone: Start: 10-12-2024 End: 10-12-2024 ambulatory Olga Lidia Rasheed Facility:[facility] Start: 10-05-2024 End: 10-05-[address] Luis Caldera MD Work Phone: [facility] Work Phone: Start: 10-05-2024 End: 10-05-2024 [facility]art[facility] Start: 10-05-2024 [facility]istered [facility] Start: 10-05-2024 End: 10-05-2024 ambulatory Walter MAYORGA Facility:[facility] Start: 09-29-2024 End: 09-29-[address] Luis Caldera MD Work Phone: [facility] Work Phone: Start: 09-29-2024 End: 09-29-2024 [facility] Start: 09-29-2024 End: 09-29-2024 ambulatory Walter MAOYRGA Facility:[facility] Start: 08-04-2024 End: 08-04-2024 [facility] Start: 08-04-2024 End: 08-04-2024 ambulatory Walter MAYORGA Facility:[facility] Start: 07-27-2024 End: 07-27-2024 [facility] Start: 07-27-2024 End: 07-27-2024 ambulatory Walter MAYORGA Facility:[facility] Start: 07-07-2024 End: 07-07-2024 [facility] Start: 07-07-2024 End: 07-07-2024 ambulatory Walter MAYORGA Facility:[facility] Start: 07-01-2024 ambulatory Walter MAYORGA Facili ty:[facility] Start: 07-01-2024 Registered [facility] Start: 06-01-2024 End: 06-01-2024 ambulatory Luis Verenice Facility:[facility] Start: 04-14-2024 End: 04-14-2024 ambulatory Walter MAYORGA Facility:[facility] Start: 04-10-2024 End: 04-10-2024 ambulatory Walter MAYORGA Facility:[facility] Start: 04-09-2024 End: 04-09-2024 ambulatory Walter MAYORGA Facility:[facility] Start: 04-07-2024 End: 04-08-2024 ambulatory Walter MAYORGA Facility:[facility] Start: 03-02-2024 ambulatory Waletr MAYORGA Facili ty:[facility] Start: 02-24-2024 ambulatory Luis Verenice Faci lity:[facility] Start: 02-19-2024 End: 02-19-2024 ambulatory Walter Stoneo OLS Facility:[facility] Start: 02-17-2024 End: 02-17-2024 ambulatory Luis Caldera Facility:[facility] Start: 02-12-2024 End: 02-12-2024 ambulatory Luis Caldera Facility:[facility] Start: 02-11-2024 End: 02-11-2024 ambulatory Walter Stoneo OLS Facility:[facility] Start: 02-10-2024 End: 02-10-2024 ambulatory Walter Stoneo OLS Facility:[facility] Start: 02-03-2024 End: 02-03-2024 ambulatory Walter Stoneo OLS Facility:[facility] Start: 01-27-2024 End: 01-27-2024 ambulatory Walter Depfabienneo OLS Facility:[facility] Start: 01-20-2024 ambulatory Walter Depfabienneo OLS Facili ty:[facility] Start: 01-15-2024 ambulatory Walter Depfabienneo OLS Facili ty:[facility] Start: 01-14-2024 ambulatory Walter Depfabienneo OLS Facili ty:[facility] Start: 01-13-2024 ambulatory Luis Caldera Faci lity:[facility] Start: 01-06-2024 ambulatory Luis Verenice Faci lity:[facility] Start: 12-30-2023 ambulatory Walter Depfabienneo OLS Facili ty:[facility] Start: 12-27-2023 ambulatory Walter Stoneo OLS Facili ty:[facility] Start: 12-20-2023 ambulatory Walter Stoneo OLS Facili ty:[facility] Start: 12-19-2023 ambulatory Walter Stoeno OLS Facili ty:[facility] Start: 10-25-[address] Adam Caldera Work Phone: [facility] Start: 10-16-2023 End: 10-16-[address] Luis Caldera Work Phone: [facility] Work Phone: Start: 10-16-2023 End: 10-16-[address] Luis Caldera Work Phone: [facility] Start: 10-16-[address] Adam Caldera Work Phone: [facility] Start: 10-08-2023 End: 10-08-[address] Luis Caldera Work Phone: [facility] Work Phone: Start: 10-08-2023 End: 10-08-[address] Luis Caldera Work Phone: [facility] Start: 10-08-[address] Adam Caldera Work Phone: [facility] Start: 10-07-2023 End: 10-07-[address] Luis Caldera Work Phone: [facility] Work Phone: Start: 10-04-2023 End: 10-04-[address] Luis Caldera Work Phone: [facility] Work Phone: Start: 10-04-2023 End: 10-04-[address] Luis Caldera Work Phone: [facility] Start: 10-01-2023 End: 10-01-[address] Luis Caldera Work Phone: [facility] Work Phone: Start: 10-01-2023 End: 10-01-[address] Luis Caldera Work Phone: [facility] Start: 10-01-2023 Registered Referred [facility] Start: 09-25-2023 End: 09-25-2023 ambulatory [facility] Work Phone: Start: 09-25-2023 End: 09-25-2023 Departed Referred [facility] Start: 09-18-2023 End: 09-18-[address] [facility] Work Phone: Start: 09-18-2023 End: 09-18-2023 Departed Referred [facility] Start: 09-18-2023 Registered Referred [facility] Start: 09-13-2023 End: 09-13-[address] [facility] Work Phone: Start: 09-13-2023 End: 09-13-2023 Departed Referred [facility] Start: 09-13-2023 Registered Referred [facility] Start: 09-12-2023 End: 09-12-[address] [facility] Work Phone: Start: 09-12-2023 End: 09-12-2023 Departed Referred [facility] Start: 09-12-2023 Registered Referred [facility] Start: 09-09-2023 End: 09-09-[address] [facility] Work Phone: Start: 09-09-2023 End: 09-09-2023 Departed Referred [facility] Start: 09-09-2023 Registered Referred [facility] Start: 08-26-2023 End: 08-26-[address] [facility] Work Phone: Start: 08-26-2023 End: 08-26-2023 Departed Referred [facility] Start: 08-26-2023 Registered Referred [facility] Start: 08-19-2023 End: 08-19-[address] [facility] Work Phone: Start: 08-19-2023 End: 08-19-2023 Departed Referred [facility] Start: 08-19-2023 Registered Referred [facility] Start: 08-12-2023 End: 08-12-[address] [facility] Hospital Work Phone: Start: 08-12-2023 End: 08-12-2023 Departed Referred [facility] Start: 08-12-2023 [facility] Start: 08-05-2023 End: 08-05-[address] [facility] Hospital Work Phone: Start: 08-05-2023 End: 08-05-2023 Departed Referred [facility] Start: 08-05-2023 [facility] Start: 07-29-2023 End: 07-29-[address] [facility] Hospital Work Phone: Start: 07-29-2023 End: 07-29-2023 Departed Referred [facility] Start: 07-22-2023 End: 07-22-[address] [facility] Hospital Work Phone: Start: 07-22-2023 End: 07-22-2023 Departed Referred [facility] Start: 07-22-[address] Adam Caldera Work Phone: [facility] Start: 07-19-2023 End: 07-19-[address] [facility] Hospital Work Phone: Start: 07-19-2023 End: 07-19-2023 Departed Referred [facility] Start: 07-19-[address] Adam Caldera Work Phone: [facility] Start: 07-17-2023 End: 07-17-2023 ambulatory [facility] Work Phone: Start: 07-17-2023 End: 07-17-2023 Departed Referred [facility] Start: 07-17-[address] Adam Caldera Work Phone: [facility] Start: 07-10-2023 End: 07-10-[address] Luis Caldera Work Phone: [facility] Work Phone: Start: 07-10-2023 End: 07-10-[address] Luis Caldera Work Phone: [facility] Start: 07-03-2023 End: 07-03-[address] Luis Caldera Work Phone: [facility] Work Phone: Start: 07-03-2023 End: 07-03-[address] Luis Caldera Work Phone: [facility] Start: 07-03-[address] Adam Caldera Work Phone: [facility] Start: 06-26-2023 End: 06-26-[address] Luis Caldera Work Phone: [facility] Work Phone: Start: 06-26-2023 End: 06-26-[address] Luis Caldera Work Phone: [facility] Start: 06-26-[address] Adam Caldera Work Phone: [facility] Start: 06-25-2023 End: 06-25-[address] Luis Caldera Work Phone: [facility] Work Phone: Start: 06-25-2023 End: 06-25-[address] Luis Caldera Work Phone: [facility] Start: 06-25-[address] Adam Caldera Work Phone: [facility] Start: 06-24-2023 End: 06-24-[address] Luis Caldera Work Phone: [facility] Work Phone: Start: 06-24-2023 End: 06-24-[address] Luis Caldera Work Phone: [facility] Start: 06-24-[address] Adam Caldear Work Phone: [facility] Start: 06-17-2023 End: 06-17-[address] Luis Caldera Work Phone: [facility] Work Phone: Start: 06-17-2023 End: 06-17-[address] Luis Caldera Work Phone: [facility] Start: 06-10-2023 End: 06-10-[address] Luis Caldera Work Phone: [facility] Work Phone: Start: 06-10-2023 End: 06-10-[address] Luis Caldera Work Phone: [facility] Start: 06-10-[address] Adam Caldera Work Phone: [facility] Start: 06-03-2023 End: 06-03-2023 Admission to same day surgery center Dr. Luis Caldera Work Phone: [facility] Start: 06-03-2023 End: 06-03-[address] Luis Caldera Work Phone: [facility] Work Phone: Start: 06-03-2023 End: 06-03-2023 Dr. Luis Caldera Work Phone: [facility] Start: 05-20-2023 End: 05-20-[address] Luis Caldera Work Phone: [facility] Work Phone: Start: 05-20-2023 End: 05-20-[address] Luis Caldera Work Phone: [facility] Start: 05-20-2023 End: 05-20-2023 Dr. Luis Caldera Work Phone: [facility] Start: 05-15-2023 End: 05-15-[address] Luis Caldera Work Phone: [facility] Work Phone: Start: 05-15-2023 End: 05-15-[address] Luis Caldera Work Phone: [facility] Start: 05-15-2023 End: 05-15-2023 Dr. Luis Caldera Work Phone: [facility] Start: 05-06-2023 End: 05-06-[address] Luis Caldera Work Phone: [facility] Work Phone: Start: 05-06-2023 End: 05-06-[address] Luis Caldera Work Phone: [facility] Start: 05-06-2023 End: 05-06-2023 Dr. Luis Caldera Work Phone: [facility] Start: 04-29-2023 End: 04-29-[address] Maggy Roberts Work Phone: [facility] Work Phone: Start: 04-29-2023 End: 04-29-[address] [facility] Start: 04-29-2023 End: 04-29-2023 Dr. Maggy Roberts Work Phone: [facility] Start: 04-15-2023 End: 04-15-[address] Luis Caldera Work Phone: [facility] Start: 04-15-2023 End: 04-15-2023 Dr. Mag[facility] Roberts [facility] Start: 04-09-2023 End: 04-09-[address] Maggy Roberts Work Phone: [facility] Work Phone: Start: 04-09-2023 End: 04-09-[address] Luis Caldera Work Phone: [facility] Start: 04-09-2023 End: 04-09-2023 Dr. Maggy Roberts [facility] Start: 04-08-2023 End: 04-08-[address] Luis Caldera Work Phone: [facility] Start: 04-08-2023 End: 04-08-2023 Dr. Maggy Roberts Work Phone: [facility] Start: 04-01-2023 End: 04-01-[address] Maggy Roberts Work Phone: [facility] Work Phone: Start: 04-01-2023 End: 04-01-[address] Luis Caldera Work Phone: [facility] Start: 04-01-2023 End: 04-01-2023 Dr. Maggy Roberts Work Phone: [facility] Start: 03-27-2023 End: 03-27-[address] Luis Caldera Work Phone: [facility] Work Phone: Start: 03-27-2023 End: 03-27-2023 Dr. Maggy Roberts Work Phone: [facility] Work Phone: Start: 03-25-2023 End: 03-25-[address] Maggy Roberts Work Phone: [facility] Work Phone: Start: 03-25-2023 End: 03-25-[address] Luis Caldera Work Phone: [facility] Start: 03-25-2023 End: 03-25-2023 Dr. Maggy Roberts Work Phone: [facility] Start: 03-11-2023 End: 03-11-[address] Maggy Roberts Work Phone: [facility] Work Phone: Start: 03-11-2023 End: 03-11-[address] Luis Caldera Work Phone: [facility] Start: 03-11-2023 End: 03-11-2023 Dr. Mag[facility] Start: 03-04-[address] Adam Caldera Work Phone: [facility] Start: 03-04-2023 Dr. Maggy Bonilla line Work Phone: [facility] Start: 03-01-[address] Adam Caldera Work Phone: [facility] Start: 03-01-2023 Dr. Maggy Bonilla line Work Phone: [facility] Start: 02-25-[address] Adam Caldera Work Phone: [facility] Start: 02-25-2023 Dr. Maggy Bonilla line Work Phone: [facility] Start: 02-22-[address] Adam Caldera Work Phone: [facility] Start: 02-22-2023 Dr. Maggy Bonilla line Work Phone: [facility] Start: 02-20-2023 Dr. Maggy Bonilla line Work Phone: [facility] Start: 02-18-2023 End: 02-18-2023 Dr. Maggy Roberts Work Phone: [facility] Work Phone: Start: 02-14-2023 Dr. Maggy Bonilla line Work Phone: [facility] Start: 02-13-2023 Dr. Maggy Bonilla line Work Phone: [facility] Work Phone: Start: 02-12-2023 Dr. Maggy Bonilla line Work Phone: [facility] Work Phone: Start: 02-12-2023 Dr. Maggy Bonilla line Work Phone: [facility] Start: 02-11-2023 End: 02-13-2023 Evaluation and management of inpatient Dr. Maggy Roberts Work Phone: [facility] Work Phone: Start: 02-11-2023 End: 02-13-2023 Dr. Maggy Roberts Work Phone: [facility]-Medical [facility] 3 Work Phone: Start: 02-10-2023 End: 02-11-2023 Emergency department patient visit Dr. Maggy Roberts Work Phone: [facility] Work Phone: Start: 02-10-2023 End: 02-11-2023 Dr. Maggy Roberts Work Phone: [facility]Emergency Department Work Phone: Start: 02-07-2023 Dr. Maggy Bonilla line Work Phone: [facility] Start: 02-05-2023 Dr. Maggy Bonilla line Work Phone: [facility] Work Phone: Start: 02-05-2023 End: 02-05-2023 Dr. Maggy Roberts Work Phone: [facility] Work Phone: Start: 02-04-2023 Dr. Maggy Bonilla line Work Phone: [facility] Work Phone: Start: 02-03-2023 End: 02-05-2023 Dr. Maggy Roberts Work Phone: [facility] Work Phone: Start: 02-02-2023 Dr. Maggy Bonilla line Work Phone: [facility] Work Phone: Start: 02-01-2023 Dr. Maggy Bonilla line Work Phone: [facility] Start: 02-01-2023 Dr. Maggy Bonilla line Work Phone: [facility] Work Phone: Start: 01-31-2023 Dr. Maggy Bonilla line Work Phone: [facility] Start: 01-31-2023 Dr. Maggy Bonilla line Work Phone: [facility] Work Phone: Start: 01-30-2023 Dr. Maggy Bonilla line Work Phone: [facility] Start: 01-30-2023 Dr. Maggy Bonilla line Work Phone: [facility] Start: 01-29-2023 Dr. Maggy Bonilla line Work Phone: [facility] Work Phone: Start: 01-29-2023 Dr. Maggy Bonilla line Work Phone: [facility] Start: 01-28-2023 Telephone encounter Luis Caldera MD Work Phone: [facility] [place] Comment on above: Immunizations Start: 01-28-2023 Dr. Maggy Bonilla line Work Phone: [facility] Work Phone: Start: 01-28-2023 End: 01-28-2023 Dr. Maggy Roberts Work Phone: [facility] Work Phone: Start: 01-27-2023 Evaluation and management of inpatient Dr. Maggy Roberts [facility] Work Phone: Start: 01-27-2023 End: 02-05-2023 Dr. Maggy Roberts Work Phone: [facility] Work Phone: Start: 01-26-2023 Non-patient / Non-visit Dr. Eddie Roberts Work Phone: [facility] Start: 01-26-2023 Dr. Maggy Bonilla line Work Phone: [facility] Start: 01-26-2023 Non-patient / Non-visit Dr. Eddie Robetrs Work Phone: [facility] Work Phone: Start: 01-26-2023 Dr. Maggy Bonilla line Work Phone: [facility] Work Phone: Start: 01-25-2023 Non-patient / Non-visit Dr. Eddie Roberts Work Phone: [facility] Start: 01-25-2023 Dr. Maggy Bonilla line Work Phone: [facility] Start: 01-25-2023 Non-patient / Non-visit Dr. Eddie Roberts Work Phone: [facility] Work Phone: Start: 01-25-2023 Dr. Maggy Bonilla line Work Phone: [facility] Work Phone: Start: 01-24-2023 Non-patient / Non-visit Dr. Eddie Roberts Work Phone: [facility] Start: 01-24-2023 Dr. Maggy benavides Work Phone: [facility] Start: 01-24-2023 Telephone encounter Luis Caldera MD Work Phone: [facility] Comment on above: Patient Update Start: 01-24-2023 Non-patient / Non-visit Dr. Eddie Roberts Work Phone: [facility] Start: 01-24-2023 Dr. Maggy benavides Work Phone: [facility] Start: 01-24-2023 Non-patient / Non-visit Dr. Eddie Roberts Work Phone: [facility] Work Phone: Start: 01-24-2023 End: 01-24-2023 Dr. Maggy Roberts Work Phone: [facility] Work Phone: Start: 01-23-2023 Non-patient / Non-visit Dr. Eddie Roberts Work Phone: [facility] Start: 01-23-2023 Dr. Maggy Bonilla line Work Phone: [facility] Start: 01-23-2023 Non-patient / Non-visit Dr. Eddie Roberts Work Phone: [facility] Start: 01-23-2023 Dr. Maggy Bonilla line Work Phone: [facility] Start: 01-22-2023 Non-patient / Non-visit Dr. Eddie Roberts Work Phone: [facility] Start: 01-22-2023 Dr. Maggy Bonilla line Work Phone: [facility] Start: 01-22-2023 Non-patient / Non-visit Dr. Eddie Roberts Work Phone: [facility] Start: 01-22-2023 Dr. Maggy Bonilla line Work Phone: [facility] Start: 01-22-2023 Non-patient / Non-visit Dr. Eddie Roberts Work Phone: [facility] Work Phone: Start: 01-22-2023 Dr. Maggy Bonilla line Work Phone: [facility] Work Phone: Start: 01-21-2023 End: 01-21-2023 Dr. Maggy Roberts Work Phone: [facility] Work Phone: Start: 01-21-2023 Non-patient / Non-visit Dr. Eddie Roberts Work Phone: [facility] Start: 01-21-2023 Dr. Maggy Bonilla line Work Phone: [facility] Start: 01-21-2023 Non-patient / Non-visit Dr. Eddie Roberts Work Phone: [facility] Work Phone: Start: 01-21-2023 Dr. Maggy Bonilla line Work Phone: [facility] Work Phone: Start: 01-21-2023 End: 01-26-2023 Evaluation and management of inpatient [facility]. Maggy Roberts [facility] Work Phone: Start: 01-21-2023 End: 01-26-2023 Dr. Maggy Roberts [facility] Work Phone: Start: 01-08-2023 Non-patient / Non-visit Dr. Eddie Roberts Work Phone: [facility] Work Phone: Start: 01-08-2023 Dr. Maggy Bonilla line Work Phone: [facility] Work Phone: Start: 01-07-2023 Non-patient / Non-visit Dr. Eddie Roberts Work Phone: [facility] Work Phone: Start: 01-07-2023 Dr. Maggy Bonilla line Work Phone: [facility] Work Phone: Start: 01-06-2023 Non-patient / Non-visit Dr. Eddie Roberts Work Phone: [facility] Work Phone: Start: 01-06-2023 Dr. Maggy Bonilla line Work Phone: [facility] Work Phone: Start: 01-05-2023 End: 01-08-2023 Evaluation and management of inpatient [facility]. Maggy Roberts [facility] Work Phone: Start: 01-05-2023 End: 01-08-2023 Dr. Maggy Roberts [facility] Work Phone: Start: 01-05-2023 Non-patient / Non-visit Dr. Eddie Roberts Work Phone: [facility] Work Phone: Start: 01-05-2023 Dr. Maggy Bonilla line Work Phone: [facility] Work Phone: Start: 01-04-2023 Evaluation and management of inpatient [facility] Start: 01-04-2023 Non-patient / Non-visit Dr. Eddie Roberts Work Phone: [facility] Work Phone: Start: 01-04-2023 observation encounter [facility] Work Phone: Start: 01-04-2023 Dr. Maggy Bonilla line Work Phone: [facility] Work Phone: Start: 01-04-2023 Telephone encounter Luis Caldera MD Work Phone: [facility] Comment on above: Appointment Start: 01-03-2023 Telephone encounter Luis Caldera MD Work Phone: [facility] Comment on above: Appointment; Patient Update Start: 01-03-2023 End: 01-03-2023 ambulatory Justina Escoto PT [facility] Comment on above: Spinal stenosis, lum bar region, without neurogenic claudication (Primary Dx); Primary osteoarthritis of both knees Start: 12-31-2022 End: 12-31-2022 ambulatory Ira Kashuba SWITCHGEAR REPAIRER Work Phone: [facility] Comment on above: Spinal stenosis, lum bar region, without neurogenic claudication (Primary Dx); Primary osteoarthritis of both knees Start: 12-27-2022 End: 12-27-2022 ambulatory Ira Kashuba SWITCHGEAR REPAIRER Work Phone: [facility] Comment on above: Spinal stenosis, lum bar region, without neurogenic claudication (Primary Dx); Primary osteoarthritis of both knees Start: 12-24-2022 End: 12-24-2022 ambulatory Justina O'Rafa PT [facility] Comment on above: Spinal stenosis, lum bar region, without neurogenic claudication (Primary Dx); Primary osteoarthritis of both knees Start: 12-17-2022 End: 12-17-2022 ambulatory Justina O'Rafa PT [facility] Comment on above: Spinal stenosis, lum bar region, without neurogenic claudication (Primary Dx); Primary osteoarthritis of both knees Start: 12-14-2022 End: 12-14-2022 ambulatory Justina O'Rafa PT [facility] Comment on above: Spinal stenosis, lum bar region, without neurogenic claudication (Primary Dx); Primary osteoarthritis of both knees Start: 12-12-2022 End: 12-12-2022 ambulatory Justina O'Rafa PT [facility] Comment on above: Spinal stenosis, lum bar region, without neurogenic claudication (Primary Dx); Primary osteoarthritis of both knees Start: 11-20-2022 Refill Abdulaziz Caldera MD Work Phone: [facility] Comment on above: Refill Request Start: 11-19-2022 Telephone encounter Valencia Pascual MA [facility] Comment on above: Anticoagulation Start: 10-22-2022 End: 10-22-2022 Patient encounter procedure Zachary Sabas Work Phone: Podiatry Comment on above: Onychomycosis (Prima ry Dx); Pain in toe of left foot; Amputated toe of right foot (HCC); Diabetic polyneuropathy associated with type 2 diabetes mellitus (HCC) Start: 09-25-2022 Telephone encounter Luis Caldera MD Work Phone: [facility] Comment on above: Anticoagulation Start: 09-07-2022 Telephone encounter Jojo galan MD Work Phone: Neurology Comment on above: Appointment Start: 09-07-2022 End: 09-07-2022 Office outpatient visit 25 minutes Jojo Kaur MD Work Phone: Neurology Comment on above: Driving safety issue (Primary Dx) Start: 08-28-2022 Telephone encounter Luis Caldera MD Work Phone: [facility] [place] Comment on above: Anticoagulation Start: 08-16-2022 Refill Abdulaziz Caldera MD Work Phone: [facility] [place] Comment on above: Refill Request Start: 08-14-2022 Telephone encounter Luis Caldera MD Work Phone: [facility] [place] Comment on above: Anticoagulation Start: 08-09-2022 End: 08-09-2022 Patient encounter procedure Abdulaziz Caldera MD Work Phone: [facility] [place] Comment on above: Type 2 diabetes almaz itus with diabetic neuropathy, with long- term current use of insulin (HCC) (Primary Dx); Diabetic polyneuropathy associated with type 2 diabetes mellitus (HCC); NSTEMI (non-ST elevated myocardial infarction) (HCC); Essential hypertension, benign; Hyperlipidemia with target LDL less than 100; Status post aortic valve repair; Chronic anticoagulation; Urinary incontinence, unspecified type; Benign prostatic hyperplasia with weak urinary stream; 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); Type 2 diabetes mellitus with stage 3a chronic kidney disease, with long-term current use of insulin (HCC); 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, macular edema presence unspecified (HCC) Start: 08-06-2022 Telephone encounter Luis Caldera MD Work Phone: [facility] [place] Comment on above: checking on medicati on Start: 08-06-2022 End: 08-06-2022 Patient encounter procedure Zachary Jaimes MD Work Phone: Otolaryngology Comment on above: Dizziness (Primary D x); Chronic frontal sinusitis Start: 07-31-2022 Telephone encounter Luis Caldera MD Work Phone: [facility] [place] Comment on above: Anticoagulation Start: 07-26-2022 Telephone encounter Luis Caldera MD Work Phone: [facility] [place] Comment on above: Home Health-Nursing Update Start: 07-25-2022 Refill Abdulaziz Caldera MD Work Phone: [facility] Comment on above: Refill Request Start: 07-17-2022 Telephone encounter Luis Caldera MD Work Phone: [facility] Comment on above: [facility] PT POC OT plan of care Start: 07-13-2022 Telephone encounter Luis Caldera MD Work Phone: [facility] Comment on above: Nursing Plan of C are Update Start: 07-12-2022 Telephone encounter Luis Caldera MD Work Phone: [facility] Comment on above: Orders Start: 07-11-2022 Non-patient / Non-visit Dr. Praveen Caldera Work Phone: [facility] Start: 07-11-2022 Non-patient / Non-visit Dr. Praveen Caldera Work Phone: [facility] Start: 07-10-2022 Non-patient / Non-visit Dr. Praveen Caldera Work Phone: [facility] Start: 07-10-2022 Non-patient / Non-visit Dr. Praveen Caldera Work Phone: [facility] Start: 07-09-2022 End: 07-11-2022 Evaluation and management of inpatient Dr. Luis Caldera Work Phone: [facility] Start: 07-09-2022 Refill Amanda Cunningham [facility] Comment on above: Opened In Error Refill Request Start: 07-05-2022 E-mail encounter fro m caregiver Jojo Kaur MD Work Phone: [facility] Start: 07-05-2022 Patient encounter procedure Jojo Kaur MD Work Phone: Neurology Comment on above: Appointment Needs Re scheduled: 08/21/[address] Kaur Start: 06-25-2022 Refill Abdulaziz Caldera MD Work Phone: [facility] Comment on above: Refill Request Start: 05-16-2022 Refill Abdulaziz Caldera MD Work Phone: [facility] Comment on above: Refill Request Start: 04-17-2022 Telephone encounter Justina fry SALES AND PRODUCTION MANAGER Work Phone: Adult Psychology Comment on above: behavioral health so cial work Start: 04-17-2022 End: 04-17-2022 Patient encounter procedure Jojo Kaur MD Work Phone: Neurology Comment on above: Generalized anxiety disorder (Primary Dx); Polyneuropathy Start: 04-16-2022 End: 04-16-2022 Patient encounter procedure Abdulaziz Caldera MD Work Phone: [facility] Comment on above: 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, with long-term current use of insulin (HCC) (Primary Dx); 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, macular edema presence unspecified (HCC); Essential hypertension, benign; Hyperlipidemia with target LDL less than 100; Mild depression; BPH without urinary obstruction Start: 04-06-2022 End: 04-06-2022 Patient encounter procedure Roselia Madrigal APRN.CNP Work Phone: [facility] Comment on above: Generalized weakness (Primary Dx); Encounter for immunization; Mild depression Start: 04-04-2022 Telephone encounter Luis Caldera MD Work Phone: [facility] Comment on above: Anticoagulation Start: 03-30-2022 End: 03-30-2022 Patient encounter procedure Zachary Obregon Work Phone: Podiatry Comment on above: Onychomycosis (Prima ry Dx); Pain in toe of left foot; Amputated toe of right foot (HCC); Diabetic polyneuropathy associated with type 2 diabetes mellitus (HCC) Start: 03-23-2022 End: 03-23-2022 ambulatory Rosa Elena Caputo [facility] Comment on above: Abnormality of gait due to impairment of balance (Primary Dx) Start: 03-22-2022 Refill Abdulaziz Caldera MD Work Phone: [facility] Comment on above: Refill Request Start: 03-15-2022 End: 03-15-2022 ambulatory Karen Wardter SWITCHGEAR REPAIRER Work Phone: [facility] Comment on above: Abnormality of gait due to impairment of balance (Primary Dx) Start: 03-12-2022 End: 03-12-2022 ambulatory Karen Weber SWITCHGEAR REPAIRER Work Phone: [facility] Comment on above: Abnormality of gait due to impairment of balance (Primary Dx) Start: 03-09-2022 End: 03-09-2022 ambulatory Rosa Elena Lemon PT [facility] Comment on above: Abnormality of gait due to impairment of balance (Primary Dx) Start: 03-07-2022 Telephone encounter Luis Caldera MD Work Phone: [facility] Comment on above: Anticoagulation Start: 03-07-2022 End: 03-07-[address] Luis Caldera Work Phone: [facility] Work Phone: Start: 03-07-2022 End: 03-07-[address] Luis Caldera Work Phone: [facility], Specimen Start: 03-07-2022 End: 03-07-2022 Patient encounter procedure Abdulaziz Caldera MD Work Phone: [facility] Comment on above: Generalized weakness (Primary Dx); Supratherapeutic INR; ANTHONY (acute kidney injury) (HCC) Start: 03-05-2022 End: 03-05-2022 ambulatory Rosa Elena Lemon PT [facility] Comment on above: Abnormality of gait due to impairment of balance (Primary Dx) Start: 03-02-2022 End: 03-02-2022 Emergency department patient visit Dr. Luis Caldera Work Phone: [facility] Start: 03-02-2022 End: 03-02-2022 ambulatory Rosa Elena Lemon PT [facility] Comment on above: Abnormality of gait due to impairment of balance (Primary Dx) Start: 02-26-2022 End: 02-26-2022 ambulatory Rosa Elena Lemon PT [facility] Comment on above: Abnormality of gait due to impairment of balance (Primary Dx) Start: 02-23-2022 End: 02-23-2022 ambulatory Karen Weber SWITCHGEAR REPAIRER Work Phone: [facility] Comment on above: Abnormality of gait due to impairment of balance (Primary Dx) Start: 02-14-2022 End: 02-14-2022 ambulatory Rosa Elena Lemon PT [facility] Comment on above: Abnormality of gait due to impairment of balance (Primary Dx) Start: 02-09-2022 End: 02-09-2022 ambulatory Rosa Elena Lemon PT [facility] Comment on above: Abnormality of gait due to impairment of balance (Primary Dx) Start: 02-06-2022 Refill Abdulaziz Caldera MD Work Phone: [facility] Comment on above: Prescription Refills Start: 02-02-2022 End: 02-02-2022 ambulatory Karen Weber SWITCHGEAR REPAIRER Work Phone: [facility] Comment on above: Abnormality of gait due to impairment of balance (Primary Dx) Start: 01-31-2022 Refill Abdulaziz Caldera MD Work Phone: [facility] Comment on above: Refill Request Start: 01-30-2022 End: 01-30-2022 ambulatory Karen Weber SWITCHGEAR REPAIRER Work Phone: [facility] Comment on above: Abnormality of gait due to impairment of balance (Primary Dx) Start: 01-23-2022 End: 01-23-2022 ambulatory Karen Weber SWITCHGEAR REPAIRER Work Phone: [facility] Comment on above: Abnormality of gait due to impairment of balance (Primary Dx) Refill Request; Refi ll Request Start: 01-17-2022 Telephone encounter Luis Caldera MD Work Phone: [facility] Comment on above: Question Start: 01-12-2022 End: 01-12-2022 ambulatory Rosa Elena Poon PT [facility] Comment on above: Abnormality of gait due to impairment of balance (Primary Dx) Start: 01-11-2022 Telephone encounter Roselia miguel APRN.BARGAIN TABLE CLERK Work Phone: [facility] Comment on above: Patient Question; Me dication Question; Referral Request Start: 01-10-2022 Telephone encounter Justina Monique APRN.BARGAIN TABLE CLERK Work Phone: Cardiology Comment on above: Results Start: 01-09-2022 End: 01-09-2022 Patient encounter procedure Echocardiogram Wstr Work Phone: Cardiology Comment on above: Chronic anticoagulat ion; Thoracic aortic aneurysm without rupture (HCC); Status post aortic valve repair Start: 01-05-2022 End: 01-05-2022 Patient encounter procedure Jojo Kaur MD Work Phone: Neurology Comment on above: Abnormality of gait due to impairment of balance (Primary Dx); Altered mental status, unspecified altered mental status type Start: 01-02-2022 Telephone encounter Justina Monique APRN.BARGAIN TABLE CLERK Work Phone: [facility] Comment on above: Results Start: 01-01-2022 End: 01-01-2022 Patient encounter procedure Justina Monique APRN.BARGAIN TABLE CLERK Work Phone: Cardiology Comment on above: Hyperlipidemia with target LDL less than 100 (Primary Dx); Primary hypertension; Thoracic aortic aneurysm without rupture (HCC); Coronary artery disease involving [place] coronary artery of [place] heart without angina pectoris; Syncope, unspecified syncope type; Obesity, Class II, BMI 35-39.9 Syncope and collapse (Primary Dx); Altered mental status, unspecified altered mental status type; Urinary incontinence, unspecified type; Benign prostatic hyperplasia with nocturia; Nocturia; Vitamin D deficiency, unspecified ; Wound of left lower extremity, initial encounter; Encounter for screening for malignant neoplasm of prostate Start: 12-29-2021 Non-patient / Non-visit Dr. Praveen Caldera Work Phone: [facility] Start: 12-28-2021 Non-patient / Non-visit Dr. Praveen Caldera Work Phone: [facility] Start: 12-28-2021 End: 12-29-2021 Evaluation and management of inpatient Dr. Luis Caldera Work Phone: [facility] Start: 12-27-2021 Non-patient / Non-visit Dr. Praveen Caldera Work Phone: [facility] Start: 12-27-2021 End: 12-27-2021 Emergency department patient visit DR. MELANIA WORKMAN MD. Facility:[facility] Start: 12-27-2021 End: 12-27-2021 Emergency department patient visit DR MELANIA WORKMAN MD [facility] Start: 12-14-2021 End: 12-14-2021 Patient encounter procedure Abdulaziz Caldera MD Work Phone: [facility] Comment on above: COVID-19 (Primary Dx ) Start: 12-08-2021 End: 12-08-2021 ambulatory Abdulaziz Caldera MD Work Phone: [facility] Comment on above: COVID-19 (Primary Dx ) Start: 12-08-2021 End: 12-08-2021 Telemedicine consultation with patient Abdulaziz Caldera MD Work Phone: [facility] Start: 12-08-2021 Telephone encounter Luis Caldera MD Work Phone: [facility] Comment on above: Patient Question Start: 12-06-2021 End: 12-07-2021 Emergency department patient visit [facility] Start: 11-20-2021 Refill Abdulaziz Caldera MD Work Phone: Orthopaedics Start: 10-23-2021 End: 10-23-2021 Patient encounter procedure Marcella Park PA-C Work Phone: General Surgery Comment on above: Diverticulosis (Prim [place] Dx); Cecal polyp Start: 10-10-2021 End: 10-10-2021 Subsequent hospital visit by physician Richard Jones MD Work Phone: Ambulatory Surgery Comment on above: Colon cancer screeni lavon [Z12.11] Start: 10-05-2021 Refill Abdulaziz Caldera MD Work Phone: [facility] [place] Comment on above: Refill Request (SEE RX NOTES) Start: 10-03-2021 Telephone encounter Luis Caldera MD Work Phone: [facility] [place] Comment on above: Medication Question Start: 08-16-2021 Telephone encounter Marcella spears PA-C Work Phone: General Surgery Comment on above: 10-10-2021 Colon ASC Procedures Date Procedure Procedure Detail Performing Clinician Start: 08-04-[address] Luis Caldera MD Work Phone: Start: 06-03-2023 Local anesthetic sacral epidural block Dr. Luis Caldera Work Phone: Start: 06-03-2023 Injection of spinal epidural space Dr. Gabrielle Caldera Work Phone: Start: 06-03-2023 Injection using fluoroscopic guidance Dr. Luis Caldera Work Phone: Start: 05-15-[address] Luis Caldera Work Phone: Start: 02-13-[address] Maggy Roberts Work Phone: Start: 02-12-2023 Dr. Maggy Roberts Work Phone: Start: 02-10-2023 Plain chest X-ray Dr. Maggy Roberts Work Phone: Start: 02-10-[address] Maggy Roberts Work Phone: Start: 02-10-2023 Dr. Maggy Roberts Work Phone: Start: 02-05-[address] Maggy Roberts Work Phone: Start: 02-05-2023 Plain chest X-ray Dr. Maggy Roberts Work Phone: Start: 02-01-[address] Maggy Roberts Work Phone: Start: 01-30-[address] Maggy Roberts Work Phone: Start: 01-29-2023 Plain chest X-ray Dr. Maggy Roberts Work Phone: Start: 01-28-2023 Radiographic procedure of chest Dr. Catherine Roberts Work Phone: Start: 01-28-2023 Plain chest X-ray Dr. Maggy Roberts Work Phone: Start: 01-27-2023 CT of thorax, abdomen and pelvis with contrast Dr. Maggy Roberts Work Phone: Start: 01-27-2023 Legionella pneumophila antigen assay Dr. Maggy Roberts Work Phone: Start: 01-27-2023 Dr. Maggy Roberts Work Phone: Start: 01-26-[address] Maggy Roberts Work Phone: Start: 01-23-[address] Maggy Roberts Work Phone: Start: 01-21-2023 Measurement of occult blood in stool specimen using immunoassay Dr. Maggy Roberts Work Phone: Start: 01-21-2023 Plain chest X-ray Dr. Maggy Roberts Work Phone: Start: 01-21-2023 CT of head without contrast Dr. Maggy Roberts Work Phone: Start: 01-05-2023 MRI of brain without contrast Dr. Ramiro Roberts Work Phone: Start: 01-04-2023 Bacteria identified in Blood by Culture Dr. Maggy Roberts Work Phone: Start: 01-04-[address] Maggy Roberts Work Phone: Start: 01-04-2023 Dr. Maggy Roberts Work Phone: Start: 01-04-2023 Plain chest X-ray Start: 01-04-2023 CT of head without contrast Start: 07-11-2022 Cardiovascular stress test using pharmacologic stress agent Dr. Luis Caldera Work Phone: Start: 07-10-2022 MRI of brain without contrast Dr. Adam Caldera Work Phone: Start: 07-09-2022 Plain chest X-ray Dr. Luis Caldera Work Phone: Start: 07-09-2022 CT of head without contrast Dr. Camron Cladera Work Phone: Start: 04-06-2022 INFLUENZA SEASONAL QUADRIVALENT HIGH DOSE AGE 65+ Roselia Podlogar SYSTEMS INTEGRATION MANAGER.BARGAIN TABLE CLERK Work Phone: Start: 04-06-2022 [employer] COVID-19 BIVALENT BOOSTER VACCINE, AGE 12+ YR Roselia Podlogar SYSTEMS INTEGRATION MANAGER.BARGAIN TABLE CLERK Work Phone: Start: 04-06-2022 Adult depression screening assessment Roselia Raglandlogar SYSTEMS INTEGRATION MANAGER.BARGAIN TABLE CLERK Work Phone: Start: 03-07-2022 PROTHROMBIN TIME/PT Abdulaziz Caldera MD Work Phone: Start: 03-07-2022 Adult depression screening assessment Abdulaziz Caldera MD Work Phone: Start: 03-02-2022 CT of head without contrast Dr. Camron Caldera Work Phone: Start: 03-02-2022 Plain chest X-ray Dr. Luis Caldera Work Phone: Start: 01-09-2022 Echo tthrc r-t 2d w/wom-mode compl spec&colr d Justina E Leonie SYSTEMS INTEGRATION MANAGER.BARGAIN TABLE CLERK Work Phone: Start: 01-01-2022 Urnls dip stick/tablet rgnt auto w/o microscopy Abdulaziz Caldera MD Work Phone: Start: 12-28-2021 MRI of brain without contrast Dr. Adam Caldera Work Phone: Start: 12-27-2021 Plain chest X-ray Dr. Luis Caldera Work Phone: Start: 12-06-2021 Plain chest X-ray Start: 12-06-2021 SARS-CoV-2 & FLU Antigen (Rapid) Start: 10-10-2021 Gluc bld gluc mntr dev cleared fda spec home use Richard Jones MD Work Phone: Start: 10-10-2021 Colon ca scrn not hi rsk ind Marcella Xavier PA-C Work Phone: Start: 10-10-2021 Gluc bld gluc mntr dev cleared fda spec home use Richard Jones MD Work Phone: Start: 10-10-2021 Colonoscopy Richard Jones MD Work Phone: Start: 10-28-2020 Adult depression screening assessment Abdulaziz Caldera MD Work Phone: Start: 03-12-2011 Colonoscopy Abdulaziz Caldera MD Work Phone: Bacteria identified in Blood by Culture Dr. Luis Caldera Work Phone: SARS-CoV-2 & FLU Antigen (Rapid) Dr. Luis Caldera Work Phone: Viral antigen assay Dr. Corie Caldera Work Phone: Plan of Treatment Date Care Activity Detail Author Start: 10-11-2031 Colonoscopy COLONOSCOPY [facility] Start: 10-11-2031 COLORECTAL CANCER SCREENING COLORECTAL CANCER SCREENING [facility] Start: 10-10-2024 Colonoscopy COLONOSCOPY [facility] Start: 10-10-2024 COLORECTAL CANCER SCREENING COLORECTAL CANCER SCREENING [facility] Start: 01-05-2024 ANNUAL PCP TEAM HEAD GIRLS GOLF COACH MARLENE DISEASE VISIT ANNUAL PCP TEAM CHRONIC DISEASE VISIT [facility] Start: 01-05-2024 BP CONTROLLED (<130/80) BP CONTROLLE D (<130/80) [facility] Start: 12-04-2023 BP CONTROLLED (<130/80) BP CONTROLLE D (<130/80) [facility] Start: 11-20-2023 ANNUAL PCP TEAM HEAD GIRLS GOLF COACH MARLENE DISEASE VISIT ANNUAL PCP TEAM CHRONIC DISEASE VISIT [facility] Start: 11-20-2023 BP CONTROLLED (<130/80) BP CONTROLLE D (<130/80) [facility] Start: 09-07-2023 BP CONTROLLED (<130/80) BP CONTROLLE D (<130/80) [facility] Start: 08-13-2023 HEMOGLOBIN/HEMATOCRIT HEMOGLOBIN/HEM ATOCRIT [facility] Start: 08-13-2023 SERUM CREATININE SERUM CREATININE [facility] Start: 08-09-2023 ANNUAL PCP TEAM HEAD GIRLS GOLF COACH MARLENE DISEASE VISIT ANNUAL PCP TEAM CHRONIC DISEASE VISIT [facility] Start: 08-09-2023 BP CONTROLLED (<130/80) BP CONTROLLE D (<130/80) [facility] Start: 07-12-2023 ANNUAL PCP TEAM HEAD GIRLS GOLF COACH MARLENE DISEASE VISIT ANNUAL PCP TEAM CHRONIC DISEASE VISIT [facility] Start: 07-12-2023 BP CONTROLLED (<130/80) BP CONTROLLE D (<130/80) [facility] Start: 06-03-2023 Anes dx/ther nerve block/injection prone pos ANESTH N BLOCK/INJ PRONE [facility] Start: 06-03-2023 Njx dx/ther sbst int rlmnr lmbr/sac w/img gdn NJX INTERLAMINAR LMBR/SAC [facility] Start: 06-03-2023 Injection using fluoroscopic guidance [facility] Start: 06-03-2023 Patient discharge [facility] Start: 04-17-2023 BP CONTROLLED (<130/80) BP CONTROLLE D (<130/80) [facility] Start: 04-16-2023 ANNUAL PCP TEAM HEAD GIRLS GOLF COACH MARLENE DISEASE VISIT ANNUAL PCP TEAM CHRONIC DISEASE VISIT [facility] Start: 04-06-2023 [facility] DEPRESSION SCREENING [facility] Start: 04-06-2023 ANNUAL PCP TEAM HEAD GIRLS GOLF COACH MARLENE DISEASE VISIT ANNUAL PCP TEAM CHRONIC DISEASE VISIT [facility] Start: 04-06-2023 BP CONTROLLED (<130/80) BP CONTROLLE D (<130/80) [facility] Start: 03-30-2023 3 comp foot exam completed DIABETIC FOOT EXAM [facility] Start: 03-15-2023 Influenza vaccination INFLUENZA (#1) [facility] Start: 03-07-2023 Adult depression scr eening assessment DEPRESSION SCREENING [facility] Start: 03-07-2023 ANNUAL PCP TEAM HEAD GIRLS GOLF COACH MARLENE DISEASE VISIT ANNUAL PCP TEAM CHRONIC DISEASE VISIT [facility] Start: 03-07-2023 BP CONTROLLED (<130/80) BP CONTROLLE D (<130/80) [facility] Start: 03-07-2023 SERUM CREATININE SERUM CREATININE [facility] Start: 03-05-2023 BP CONTROLLED (<130/80) BP CONTROLLE D (<130/80) [facility] Start: 03-02-2023 Hepatitis B screening URINE ALBUMIN:CREATININE RATIO [facility] Start: 02-13-2023 Patient discharge [facility] Start: 02-12-2023 Care regimes management [facility] Start: 02-12-2023 Notification of physician [facility] Start: 02-12-2023 [facility] Start: 02-12-2023 Blood culture [facility] Start: 02-12-2023 End: 02-12-2023 [facility] Start: 02-11-2023 End: 02-11-2023 Blood culture [facility] Start: 02-11-2023 Assessment of risk o f venous thromboembolism [facility] Start: 02-11-2023 Consultation [facility] Start: 02-11-2023 Insertion of cathete r into peripheral vein [facility] Start: 02-11-2023 Providing care accor ding to standard [facility] Start: 02-11-2023 Provision of activit y privileges [facility] Start: 02-11-2023 Referral to occupati onal therapist [facility] Start: 02-11-2023 Referral to service [facility] Start: 02-11-2023 [facility] Start: 02-11-2023 Admission procedure [facility] Start: 02-11-2023 [facility] Start: 02-11-2023 Patient referral to dietitian [facility] Start: 02-10-2023 End: 02-10-2023 [facility] Start: 02-10-2023 End: 02-10-2023 Blood culture [facility] Start: 02-10-2023 Hemoglobin A1c/Hemoglobin.total in Blood HBA1C [facility] Start: 02-05-2023 Patient discharge [facility] Start: 02-04-2023 Assessment of risk o f venous thromboembolism [facility] Start: 02-04-2023 Bedrest [facility] Start: 02-04-2023 Elevation of head of bed [facility] Start: 02-04-2023 Taking patient vital signs [facility] Start: 02-04-2023 Wound care [facility] Start: 02-04-2023 [facility] Start: 02-04-2023 Catheterization of vein [facility] Start: 02-04-2023 Notification of physician [facility] Start: 02-04-2023 [facility] Start: 02-01-2023 Catheterization of vein [facility] Start: 02-01-2023 Notification of physician [facility] Start: 02-01-2023 [facility] Start: 02-01-2023 [facility] Start: 01-30-2023 Referral to construction project mgr [facility] Start: 01-30-2023 End: 01-30-2023 Administration of blood product [facility] Start: 01-29-2023 Speech therapy assessment [facility] Start: 01-29-2023 [facility] Start: 01-28-2023 End: 01-29-2023 [facility] Start: 01-27-2023 Application of intermittent pneumatic compression device [facility] Start: 01-27-2023 Following clinical p athway protocol [facility] Start: 01-27-2023 Methicillin resistan t Staphylococcus aureus screening test [facility] Start: 01-27-2023 Aspiration precautions [facility] Start: 01-27-2023 Assessment of risk o f venous thromboembolism [facility] Start: 01-27-2023 Care regimes management [facility] Start: 01-27-2023 Fall prevention [facility] Start: 01-27-2023 Insertion of cathete r into peripheral vein [facility] Start: 01-27-2023 Introduction of urin barrington catheter [facility] Start: 01-27-2023 Measuring intake and output [facility] Start: 01-27-2023 Providing care accor ding to standard [facility] Start: 01-27-2023 Provision of activit y privileges [facility] Start: 01-27-2023 Referral to gastroenterology service [facility] Start: 01-27-2023 Referral to occupati onal therapist [facility] Start: 01-27-2023 Referral to service [facility] Start: 01-27-2023 [facility] Start: 01-27-2023 Admission procedure [facility] Start: 01-27-2023 CT Chest and Abdomen and Pelvis WO and W contrast IV [facility] Start: 01-27-2023 CT of thorax, abdome n and pelvis with contrast CTA Chst, Abd, Pel W and/or WO [facility] Start: 01-27-2023 Blood chemistry [facility] Start: 01-27-2023 End: 01-28-2023 [facility] Start: 01-27-2023 Patient referral to dietitian [facility] Start: 01-26-2023 Patient discharge [facility] Start: 01-24-2023 Speech therapy assessment [facility] Start: 01-24-2023 Speech therapy assessment [facility] Start: 01-22-2023 Referral to construction project mgr [facility] Start: 01-21-2023 Administration of bl ood product [facility] Start: 01-21-2023 Catheterization of vein [facility] Start: 01-21-2023 Application of intermittent pneumatic compression device [facility] Start: 01-21-2023 Following clinical p athway protocol [facility] Start: 01-21-2023 Care regimes management [facility] Start: 01-21-2023 Notification of physician [facility] Start: 01-21-2023 Cardiac monitoring [facility] Start: 01-21-2023 Referral to gastroenterology service [facility] Start: 01-21-2023 End: 01-21-2023 [facility] Start: 01-21-2023 Oxygen therapy [facility] Start: 01-21-2023 Ambulation without limitation [facility] Start: 01-21-2023 Documentation procedure [facility] Start: 01-21-2023 Assessment of risk o f venous thromboembolism [facility] Start: 01-21-2023 Continuous pulse oximetry [facility] Start: 01-21-2023 Insertion of cathete r into peripheral vein [facility] Start: 01-21-2023 Measuring intake and output [facility] Start: 01-21-2023 Providing care accor ding to standard [facility] Start: 01-21-2023 Referral to occupati onal therapist [facility] Start: 01-21-2023 Referral to service [facility] Start: 01-21-2023 Verification routine [facility] Start: 01-21-2023 Vital signs measurements [facility] Start: 01-21-2023 Admission procedure [facility] Start: 01-21-2023 Transfusion of red b lood cells [facility] Start: 01-08-2023 Patient discharge [facility] Start: 01-05-2023 BP CONTROLLED (<130/80) BP CONTROLLE D (<130/80) [facility] Start: 01-05-2023 Admission procedure [facility] Start: 01-05-2023 Telepractice consultation [facility] Start: 01-04-2023 Application of intermittent pneumatic compression device [facility] Start: 01-04-2023 Following clinical p athway protocol [facility] Start: 01-04-2023 Aspiration precautions [facility] Start: 01-04-2023 Assessment of risk o f venous thromboembolism [facility] Start: 01-04-2023 Cardiac monitoring [facility] Start: 01-04-2023 Care regimes management [facility] Start: 01-04-2023 Catheterization of vein [facility] Start: 01-04-2023 Elevation of head of bed [facility] Start: 01-04-2023 Exercises [facility] Start: 01-04-2023 Fall prevention [facility] Start: 01-04-2023 Inhalation therapy procedure [facility] Start: 01-04-2023 Insertion of cathete r into peripheral vein [facility] Start: 01-04-2023 Introduction of urin barrington catheter [facility] Start: 01-04-2023 Measuring intake and output [facility] Start: 01-04-2023 Notification of physician [facility] Start: 01-04-2023 Providing care accor ding to standard [facility] Start: 01-04-2023 Provision of activit y privileges [facility] Start: 01-04-2023 Referral to occupati onal therapist [facility] Start: 01-04-2023 Referral to service [facility] Start: 01-04-2023 Tobacco use cessatio n education [facility] Start: 01-04-2023 Verification routine [facility] Start: 01-04-2023 Admission procedure [facility] Start: 01-04-2023 End: 01-04-2023 [facility] Start: 01-04-2023 End: 01-04-2023 Blood culture [facility] Start: 01-04-2023 Patient referral to dietitian [facility] Start: 01-01-2023 ANNUAL PCP TEAM HEAD GIRLS GOLF COACH MARLENE DISEASE VISIT ANNUAL PCP TEAM CHRONIC DISEASE VISIT [facility] Start: 01-01-2023 BP CONTROLLED (<130/80) BP CONTROLLE D (<130/80) [facility] Start: 01-01-2023 Hepatitis B surface antibody level LDL CHOLESTEROL [facility] Start: 01-01-2023 SERUM CREATININE SERUM CREATININE [facility] Start: 12-14-2022 ANNUAL PCP TEAM HEAD GIRLS GOLF COACH MARLENE DISEASE VISIT ANNUAL PCP TEAM CHRONIC DISEASE VISIT [facility] Start: 12-08-2022 ANNUAL PCP TEAM HEAD GIRLS GOLF COACH MARLENE DISEASE VISIT ANNUAL PCP TEAM CHRONIC DISEASE VISIT [facility] Start: 12-08-2022 BP CONTROLLED (<130/80) BP CONTROLLE D (<130/80) [facility] Start: 09-06-2022 ANNUAL PCP TEAM HEAD GIRLS GOLF COACH MARLENE DISEASE VISIT ANNUAL PCP TEAM CHRONIC DISEASE VISIT [facility] Start: 09-02-2022 Hemoglobin A1c/Hemoglobin.total in Blood HBA1C [facility] Start: 08-30-2022 SERUM CREATININE SERUM CREATININE [facility] Start: 08-09-2022 End: 10-09-2022 CBC W Auto Differential panel - Blood CBC + DIFF Lab Routine Type 2 diabetes mellitus with diabetic neuropathy, with long-term current use of insulin (HCC) Expected: 08/09/2022, Expires: 10/09/2022 [facility] Work Phone: Comment on above: Expected: 08/09/2022 , Expires: 10/09/2022 Start: 08-09-2022 End: 10-09-2022 Comprehensive metabolic 2000 panel - Serum or Plasma COMP METABOLIC PANEL Lab Routine Type 2 diabetes mellitus with diabetic neuropathy, with long-term current use of insulin (HCC) Expected: 08/09/2022, Expires: 10/09/2022 [facility] Work Phone: Comment on above: Expected: 08/09/2022 , Expires: 10/09/2022 Start: 08-09-2022 End: 10-09-2022 Hemoglobin A1c in Blood HGB A1C Lab Routine Type 2 diabetes mellitus with diabetic neuropathy, with long-term current use of insulin ([facility]) Expected: 08/09/2022, Expires: 10/09/2022 [facility] Work Phone: Comment on above: Expected: 08/09/2022 , Expires: 10/09/2022 Start: 08-06-2022 COVID-19 VACCINE (6 - Pfizer series) COVID-19 VACCINE (6 - Pfizer series) [facility] Start: 07-15-2022 ADVANCE DIRECTIVE DISCUSSION ADVANCE DIRECTIVE DISCUSSION [facility] Start: 07-15-2022 DEPRESSION ASSESSMENT DEPRESSION ASS ESSMENT [facility] Start: 07-11-2022 Patient discharge [facility] Work Phone: Start: 07-11-2022 Referral to service [facility] Work Phone: Start: 07-10-2022 [facility] Work Phone: Start: 07-10-2022 Following clinical p athway protocol [facility] Work Phone: Start: 07-10-2022 Assessment of risk o f venous thromboembolism [facility] Work Phone: Start: 07-10-2022 Cardiac monitoring [facility] Work Phone: Start: 07-10-2022 Care regimes management [facility] Work Phone: Start: 07-10-2022 Catheterization of vein [facility] Work Phone: Start: 07-10-2022 Continuous pulse oximetry [facility] Work Phone: Start: 07-10-2022 Elevation of head of bed [facility] Work Phone: Start: 07-10-2022 Exercises [facility] Work Phone: Start: 07-10-2022 Fall prevention [facility] Work Phone: Start: 07-10-[address] anned interventions [facility] Work Phone: Start: 07-10-2022 Incentive spirometry [facility] Work Phone: Start: 07-10-2022 Insertion of cathete r into peripheral vein [facility] Work Phone: Start: 07-10-2022 Introduction of urin barrington catheter [facility] Work Phone: Start: 07-10-2022 Measuring intake and output [facility] Work Phone: Start: 07-10-2022 Notification of physician [facility] Work Phone: Start: 07-10-2022 Oxygen therapy [facility] Work Phone: Start: 07-10-2022 Providing care accor ding to standard [facility] Work Phone: Start: 07-10-2022 Provision of activit y privileges [facility] Work Phone: Start: 07-10-2022 Referral to construction project mgr [facility] Work Phone: Start: 07-10-2022 Referral to occupati onal therapist [facility] Work Phone: Start: 07-10-2022 Referral to service [facility] Work Phone: Start: 07-10-2022 Tobacco use cessatio n education [facility] Work Phone: Start: 07-10-2022 [facility] Work Phone: Start: 07-10-2022 Patient referral to dietitian [facility] Work Phone: Start: 07-09-2022 Admission procedure [facility] Work Phone: Start: 03-15-2022 HEMOGLOBIN/HEMATOCRIT HEMOGLOBIN/HEM ATOCRIT [facility] Start: 03-15-2022 Influenza vaccination INFLUENZA (#1) [facility] Start: 03-07-2022 End: 05-07-2022 Comprehensive metabolic 2000 panel - Serum or Plasma [facility] Work Phone: Comment on above: Expected: 03/07/2022 , Expires: 05/07/2022 Start: 03-02-2022 [facility] Work Phone: Start: 02-27-2022 Hemoglobin A1c/Hemoglobin.total in Blood HBA1C [facility] Start: 02-20-2022 Hepatitis C antibody , confirmatory test DILATED RETINAL EXAM [facility] Start: 01-30-2022 End: 04-01-2022 ALBUMIN/CREAT RATIO RND UR ALBUMIN/CREAT RATIO RND UR Lab Routine Type 2 diabetes mellitus with stage 3 chronic kidney disease, with long-term current use of insulin (HCC) Expected: 01/30/2022, Expires: 04/01/2022 [facility] Work Phone: Comment on above: Expected: 01/30/2022 , Expires: 04/01/2022 Start: 01-30-2022 End: 04-01-2022 Hemoglobin A1c in Blood HGB A1C Lab Routine Type 2 diabetes mellitus with stage 3 chronic kidney disease, with long-term current use of insulin (HCC) Expected: 01/30/2022, Expires: 04/01/2022 [facility] Work Phone: Comment on above: Expected: 01/30/2022 , Expires: 04/01/2022 Start: 01-30-2022 End: 04-01-2022 SCHEDULE LAB TESTING SCHEDULE LAB TESTING Lab Routine Expected: 01/30/2022, Expires: 04/01/2022 [facility] Work Phone: Comment on above: Expected: 01/30/2022 , Expires: 04/01/2022 Start: 01-05-2022 End: 03-07-2022 Magnesium [Mass/volume] in Serum or Plasma MAGNESIUM BLD Lab Routine Altered mental status, unspecified altered mental status type Expected: 01/05/2022, Expires: 03/07/2022 [facility] Work Phone: Comment on above: Expected: 01/05/2022 , Expires: 03/07/2022 Start: 01-05-2022 End: 03-07-2022 Methylmalonate [Moles/volume] in Serum or Plasma METHYLMALONIC ACID Lab Routine Altered mental status, unspecified altered mental status type Expected: 01/05/2022, Expires: 03/07/2022 [facility] Work Phone: Comment on above: Expected: 01/05/2022 , Expires: 03/07/2022 Start: 01-01-2022 End: 03-03-2022 25-hydroxyvitamin D3 [Mass/volume] in Serum or Plasma [facility] Work Phone: Comment on above: Expected: 01/01/2022 , Expires: 03/03/2022 Start: 01-01-2022 End: 03-03-2022 Lipid 1996 panel - Serum or Plasma [facility] Work Phone: Comment on above: Expected: 01/01/2022 , Expires: 03/03/2022 Start: 12-30-2021 Blood chemistry [facility] Work Phone: Start: 12-29-2021 Patient discharge [facility] Work Phone: Start: 12-28-2021 Admission procedure [facility] Work Phone: Start: 12-27-2021 End: 12-28-2021 [facility] Work Phone: Start: 12-27-2021 Oxygen therapy [facility] Work Phone: Start: 12-27-2021 Incentive spirometry [facility] Work Phone: Start: 12-27-2021 [facility] Start: 12-27-2021 Assessment of risk o f venous thromboembolism [facility] Work Phone: Start: 12-27-2021 Following clinical p athway protocol [facility] Work Phone: Start: 12-27-2021 Insertion of cathete r into peripheral vein [facility] Work Phone: Start: 12-27-2021 Measuring intake and output [facility] Work Phone: Start: 12-27-2021 Providing care accor ding to standard [facility] Work Phone: Start: 12-27-2021 End: 12-27-2021 Referral to service [facility] Work Phone: Start: 12-06-2021 Bacteria identified in Blood by Culture Blood Culture [facility] Work Phone: Start: 11-23-2021 3 comp foot exam completed DIABETIC FOOT EXAM [facility] Start: 11-16-2021 Hepatitis B screening URINE ALBUMIN:CREATININE RATIO [facility] Start: 11-16-2021 Hepatitis B surface antibody level LDL CHOLESTEROL [facility] Start: 10-28-2021 Adult depression scr eening assessment DEPRESSION SCREENING [facility] Start: 09-15-2021 COVID-19 VACCINE (4 - Booster for Pfizer series) COVID-19 VACCINE (4 - Booster for Pfizer series) [facility] Start: 07-15-2021 ADVANCE DIRECTIVE DISCUSSION ADVANCE DIRECTIVE DISCUSSION [facility] Start: 07-15-2021 DEPRESSION ASSESSMENT DEPRESSION ASS ESSMENT [facility] Start: 03-12-2021 Colonoscopy COLONOSCOPY [facility] Start: 03-12-2021 COLORECTAL CANCER SCREENING COLORECTAL CANCER SCREENING [facility] Start: 12-25-2020 Urine microalbumin profile DTA P,TDAP,TD (3 - Td or Tdap) [facility] Start: 10-12-1992 COLOGUARD (FIT-DNA) COLOGUARD (FIT-D NA) [facility] Start: 10-12-[address] [facility] Start: 10-12-1992 FECAL OCCULT BLOOD FECAL OCCULT BLOO D [facility] Start: 10-12-1992 SIGMOIDOSCOPY SIGMOIDOSCOPY Maryjane delgado [facility] Start: 10-12-1965 BP CONTROLLED (<130/80) BP CONTROLLE D (<130/80) [facility] Alanine aminotransfe rase [Enzymatic activity/volume] in Serum or Plasma [facility] Aspartate aminotrans ferase [Enzymatic activity/volume] in Serum or Plasma [facility] Bacteria identified in Blood by Culture Blood Culture [facility] Bacteria identified in Urine by Culture Urine Culture [facility] Creatine kinase [Enz ymatic activity/volume] in Serum or Plasma [facility] End: 01-05-2023 EPIL EEG ROUTINE EPIL EEG ROUTINE NEUROLOGY Routine Altered mental status, unspecified altered mental status type 1 Occurrences starting 01/05/2022 until 01/05/2023 [facility] Work Phone: Comment on above: 1 Occurrences starti ng 01/05/2022 until 01/05/2023 Lipid 1996 panel - S chavez or Plasma [facility] Magnesium [Mass/volu me] in Serum or Plasma [facility] Magnesium [Mass/volu me] in Serum or Plasma [facility] Patient Education [facility] Work Phone: Patient referral [facility] Work Phone: PT PLAN OF CARE CERTIFICATION PT PLAN OF CARE CERTIFICATION Procedures Routine Abnormality of gait due to impairment of balance Ordered: 01/12/2022 [facility] Comment on above: Ordered: 01/12/2022 PT PLAN OF CARE CERTIFICATION PT PLAN OF CARE CERTIFICATION Procedures Routine Abnormality of gait due to impairment of balance Ordered: 03/09/2022 [facility] Comment on above: Ordered: 03/09/2022 SURGICAL PATHOLOGY [facility] Work Phone: Comment on above: Release Upon Orderin g for 1 Occurrences starting 10/10/2021, 1 completed [facility] Immunizations Immunization Date Immunization Notes Care Provider Fa [facility] 04-06-2022 COVID-19 booster vaccine, age 12+ yr, bivalent (PFIZER-BIONTECH) Roselia Madrigal SYSTEMS INTEGRATION MANAGER.BARGAIN TABLE CLERK Work Phone: [facility] 04-06-2022 Influenza, high dose seasonal Dr. Luis Caldera MD Work Phone: [facility] 04-06-2022 influenza, high dose seasonal, preservative-free Dr. Maggy Roberts Work Phone: [facility] 04-06-2022 influenza, high-dose , quadrivalent vaccine (FLUZONE HIGH DOSE QUADRIVALENT) Roselia Madrigal SYSTEMS INTEGRATION MANAGER.BARGAIN TABLE CLERK Work Phone: [facility] 03-28-2022 influenza, injectabl e, quadrivalent, preservative free Dr. Maggy Roberts Work Phone: [facility] 03-28-2022 influenza, seasonal, injectable Dr. Maggy Roberts Work Phone: [facility] 06-14-2021 Influenza, high dose seasonal Dr. Luis Caldera MD Work Phone: [facility] 06-14-2021 influenza, high dose seasonal, preservative-free Dr. Maggy Roberts Work Phone: [facility] 06-14-2021 influenza, high-dose , quadrivalent vaccine (FLUZONE HIGH DOSE QUADRIVALENT) Abdulaziz Caldera MD Work Phone: [facility] Work Phone: 05-18-2021 Covid (Pfizer) Dr. Maggy Roberts Work Phone: [facility] 02-24-2021 zoster vaccine recombinant Abdulaziz Caldera MD Work Phone: [facility] 12-13-2020 Covid (Pfizer) Dr. Ramón Caldera Work Phone: [facility] 09-30-2020 COVID-19 vaccine, ag e 12+ yr (PFIZER-BIONTECH - PURPLE TOP) Abdulaziz Caldera MD Work Phone: [facility] 09-09-2020 COVID-19 vaccine, ag e 12+ yr (PFIZER-BIONTECH - PURPLE TOP) Abdulaziz Caldera MD Work Phone: [facility] 04-16-2020 Influenza, high dose seasonal Dr. Luis Caldera MD Work Phone: [facility] 04-16-2020 influenza, high dose seasonal, preservative-free Dr. Maggy Roberts Work Phone: [facility] 04-16-2020 influenza, high-dose , quadrivalent vaccine (FLUZONE HIGH DOSE QUADRIVALENT) Abdulaziz Caldera MD Work Phone: [facility] 03-14-2020 zoster vaccine recombinant Abdulaziz Caldera MD Work Phone: [facility] Work Phone: 04-02-2019 Influenza, high dose seasonal Dr. Luis Caldera MD Work Phone: [facility] 04-02-2019 influenza, high dose seasonal, preservative-free Abdulaziz Caldera MD Work Phone: [facility] Work Phone: 05-08-2018 Influenza virus vaccine [facility] 04-15-2018 Influenza, high dose seasonal Dr. Luis Caldera MD Work Phone: [facility] 04-15-2018 influenza, high dose seasonal, preservative-free Abdulaziz Caldera MD Work Phone: [facility] 06-13-2017 Influenza, high dose seasonal Dr. Luis Caldera MD Work Phone: [facility] 06-13-2017 influenza, high dose seasonal, preservative-free Abdulaziz Caldera MD Work Phone: [facility] 06-20-2016 influenza, high dose seasonal, preservative-free Abdulaziz Caldera MD Work Phone: [facility] 11-24-2015 pneumococcal polysaccharide vaccine, 23 valent Abdulaziz Caldera MD Work Phone: [facility] 05-16-2015 Influenza, high dose seasonal Dr. Luis Caldera MD Work Phone: [facility] 05-16-2015 influenza, high dose seasonal, preservative-free Abdulaziz Caldera MD Work Phone: [facility] 10-27-2014 pneumococcal conjuga te vaccine, 13 valent Abdulaziz Caldera MD Work Phone: [facility] 10-27-2014 zoster vaccine, live Socrates Caldera MD Work Phone: [facility] 04-14-2013 Influenza virus vaccine W [facility] 06-11-2011 influenza virus vaccine, unspecified formulation Abdulaziz Caldera MD Work Phone: [facility] 12-25-2010 tetanus toxoid, redu veronika diphtheria toxoid, and acellular pertussis vaccine, adsorbed Abdulaziz Caldera MD Work Phone: [facility] 04-25-2009 pneumococcal polysaccharide vaccine, 23 valrosette Caldera MD Work Phone: [facility] 03-21-2000 diphtheria and tetan us toxoids, adsorbed for pediatric use Abdulaziz Caldera MD Work Phone: [facility] Work Phone: 02-11-1961 poliovirus vaccine, inactivated Abdulaziz Caldera MD Work Phone: [facility] Work Phone: 03-25-1959 poliovirus vaccine, inactivated Abdulaziz Caldera MD Work Phone: [facility] Work Phone: 10-16-1956 poliovirus vaccine, inactivated Abdulaziz Caldera MD Work Phone: [facility] Work Phone: 01-12-1956 poliovirus vaccine, inactivated Abdulaziz Caldera MD Work Phone: [facility] Work Phone: 12-03-1955 poliovirus vaccine, inactivated Abdulaziz Caldera MD Work Phone: [facility] Work Phone: Payers Date Payer Category Payer Self-pay [id number] 2021 Medicare [id number] 2021 Unknown [id number] 2012 Unknown HOSPITAL/MEDICAL GENERIC MEDICAL GENERIC [id number] 2012-Present [phone] [address] [place] [address] Indemnity [id number] 2012 Unknown HOSPITAL/MEDICAL GENERIC MEDICAL GENERIC [id number] 2012-Present [phone] [facility] [place] [address] Indemnity [id number] 2012 Medicare MEDICARE MEDICAR E A AND B [id number] 2012-Present [phone] [place] [address] Medicare [id number] 2012 Medicare MEDICARE MEDICAR E A AND B [id number] 2012-Present [phone] [address] [address] [place] [address] Medicare [id number] 1945 Unknown [id number] 2.16.840.1.158469.3.579.2.627 Unknown [id number] 2.16.840.1.720026.3.579.2.462 Unknown [id number] 2.16.840.1.030261.3.579.2.462 Unknown [id number] 2.16.840.1.875388.3.579.2.462 Unknown [id number] 2.16.840.1.313670.3.579.2.462 Unknown [id number] 2.16.840.1.991132.3.579.2.462 Unknown [id number] 2.16.840.1.538959.3.579.2.462 Unknown [id number] 2.16.840.1.270464.3.579.2.462 Unknown [id number] 2.16.840.1.117083.3.579.2.462 Unknown [id number] 2.16.840.1.599514.3.579.2.462 Unknown [id number] 2.16.840.1.051998.3.579.2.462 Unknown [id number] 2.16.840.1.201513.3.579.2.462 Unknown [id number] 2.16.840.1.672406.3.579.2.462 Unknown [id number] 2.16.840.1.932355.3.579.2.462 Unknown [id number] 2.16.840.1.018340.3.579.2.462 Unknown [id number] 2.16.840.1.908802.3.579.2.462 Unknown [id number] 2.16.840.1.837241.3.579.2.462 Unknown [id number] 2.840.1.571676.3.579.2.462 Unknown [id number] 2.840.1.368957.3.579.2.462 Unknown [id number] 2.840.1.196048.3.579.2.462 Unknown [id number] 2.840.1.639748.3.579.2.462 Unknown [id number] 2.840.1.973409.3.579.2.462 Unknown [id number] 2.840.1.957102.3.579.2.462 Unknown [id number] 2.840.1.314836.3.579.2.462 Unknown [id number] 2.840.1.639139.3.579.2.462 Unknown [id number] 2.840.1.441301.3.579.2.462 Unknown [id number] 2.840.1.591210.3.579.2.462 Unknown [id number] 2.840.1.447408.3.579.2.462 Unknown [id number] 2.840.1.411582.3.579.2.462 Unknown [id number] 2.840.1.363549.3.579.2.462 Unknown [id number] 2.840.1.676157.3.579.2.462 Unknown [id number] 2.840.1.463441.3.579.2.462 Unknown [id number] 2.840.1.084559.3.579.2.462 Unknown [id number] 2.840.1.811467.3.579.2.462 Social History Date Type Detail Facility Start: 11-23-2020 End: 10-07-2023 Tobacco smoking status NHIS Never smoked tobacco [facility] Start: 09-06-2021 End: 12-03-2022 Alcohol intake Current non-drinker of alcohol (finding) [facility] Start: 1945 Sex Assigned At Not on file [facility] Start: 08-07-2021 End: 04-17-2022 Exposure to SARS-CoV-2 (event) Not sure [facility] Start: 12-06-2021 End: 05-30-2023 Tobacco smoking status NHIS Unknown if ever smoked [facility] Start: 01-10-2019 Spouse/ Signif icant Other [facility] Start: 1945 Sex Assigned At Male W [facility] Work Phone: Tobacco smoking status No Smokin g Status Entered [facility] Start: 01-02-2022 End: 01-12-2022 Exposure to SARS-CoV-2 (event) Unable to assess [facility] Work Phone: Start: 11-23-2020 End: 04-06-2022 Tobacco use and exposure Smokeless tobacco non-user [facility] Work Phone: Start: 09-16-2013 Rare [facility] Start: 09-16-2013 None [facility] Start: 09-16-2013 Non-smoker [facility] Start: 11-19-2022 End: 12-03-2022 History of Social function [facility] Work Phone: Start: 11-19-2022 End: 12-03-2022 Tobacco use panel [facility] Work Phone: Adult Depression Screening Assessment 2 [facility] Work Phone: Start: 10-15-2024 End: 10-22-2024 Sex Male (finding) [facility] Medical Equipment Procedure Code Equipment Code Equipment Origin al Text Equipment Identifier Dates Start: 12-11-2019 End: 02-06-2022 Comment on above: Test blood sugar(s) 3 times daily. Dx: E11.49. Insulin: Yes 1 Each four times da griselda. With insulin ANTHONY 3GRM HEMOSTAT ABS FDA Start: 03-28-2018 ANTHONY 3GRM HEMOSTAT ABS FDA Start: 03-28-2018 ANTHONY 3GRM HEMOSTAT ABS FDA Start: 03-28-2018 ANTHONY 3GRM HEMOSTAT ABS FDA Start: 03-28-2018 ANTHONY 3GRM HEMOSTAT ABS FDA Start: 03-28-2018 ANTHONY 3GRM HEMOSTAT ABS FDA Start: 03-28-2018 ANTHONY 3GRM HEMOSTAT ABS FDA Start: 03-28-2018 ANTHONY 3GRM HEMOSTAT ABS FDA Start: 03-28-2018 ANTHONY 3GRM HEMOSTAT ABS FDA Start: 03-28-2018 FDA Start: 03-28-2018 [id number]) [id number] FDA Start: 02-04-2023 ([id number]) ()[id number] FDA Start: 02-04-2023 ([id number]) ()[id number] FDA Start: 02-04-2023 FDA Start: 03-28-2018 FDA Start: 03-28-2018 FDA Start: 03-28-2018 FDA Start: 03-28-2018 FDA Start: 03-28-2018 FDA Start: 03-28-2018 FDA Start: 03-28-2018 FDA Start: 03-28-2018 FDA Start: 03-28-2018 FDA Start: 03-28-2018 FDA Start: 03-28-2018 ANTHONY 3GRM HEMOSTAT ABS FDA Start: 03-28-2018 ANTHONY 3GRM HEMOSTAT ABS FDA Start: 03-28-2018 ANTHONY 3GRM HEMOSTAT ABS FDA Start: 03-28-2018 ANTHONY 3GRM HEMOSTAT ABS FDA Start: 03-28-2018 ANTHONY 3GRM HEMOSTAT ABS FDA Start: 03-28-2018 ANTHONY 3GRM HEMOSTAT ABS FDA Start: 03-28-2018 ANTHONY 3GRM HEMOSTAT ABS FDA Start: 03-28-2018 ANTHONY 3GRM HEMOSTAT ABS FDA Start: 03-28-2018 ANTHONY 3GRM HEMOSTAT ABS FDA Start: 03-28-2018 ANTHONY 3GRM HEMOSTAT ABS FDA Start: 03-28-2018 ANTHONY 3GRM HEMOSTAT ABS FDA Start: 03-28-2018 ANTHONY 3GRM HEMOSTAT ABS FDA Start: 03-28-2018 ANTHONY 3GRM HEMOSTAT ABS FDA Start: 03-28-2018 ANTHONY 3GRM HEMOSTAT ABS FDA Start: 03-28-2018 ANTHONY 3GRM HEMOSTAT ABS FDA Start: 03-28-2018 ANTHONY 3GRM HEMOSTAT ABS FDA Start: 03-28-2018 ANTHONY 3GRM HEMOSTAT ABS FDA Start: 03-28-2018 ANTHONY 3GRM HEMOSTAT ABS FDA Start: 03-28-2018 ANTHONY 3GRM HEMOSTAT ABS FDA Start: 03-28-2018 ANTHONY 3GRM HEMOSTAT ABS FDA Start: 03-28-2018 ANTHONY 3GRM HEMOSTAT ABS FDA Start: 03-28-2018 ANTHONY 3GRM HEMOSTAT ABS FDA Start: 03-28-2018 ANTHONY 3GRM HEMOSTAT ABS FDA Start: 03-28-2018 ANTHONY 3GRM HEMOSTAT ABS FDA Start: 03-28-2018 ANTHONY 3GRM HEMOSTAT ABS FDA Start: 03-28-2018 ANTHONY 3GRM HEMOSTAT ABS FDA Start: 03-28-2018 Goals Date Patient Goal Desired Activity /State Functional Status Date Assessment Result Facility 02-13-2023 Functional status Bedrest [facility] Work Phone: 02-05-2023 Functional status Chair [facility] Work Phone: 02-04-2023 Functional status Bedrest [facility] Work Phone: 01-26-2023 Functional status Chair mode [facility] Work Phone: 01-26-2023 Functional status With Assist of 2;Bedres t [facility] Work Phone: 01-25-2023 Functional status None [facility] Work Phone: 01-08-2023 Functional status Chair [facility] Work Phone: 07-11-2022 Functional status Ambulates [facility] Work Phone: 12-29-2021 Functional status Chair [facility] Work Phone: Mental Status Date Assessment Result Facility 06-03-2023 Cognitive function Voice/Name [facility] Work Phone: 02-13-2023 Cognitive function Voice/Name [facility] Work Phone: 02-11-2023 Cognitive function Awake;Drowsy [facility] Work Phone: 02-10-2023 Cognitive function Awake;Appropr iate;Follows Commands;Drowsy [facility] Work Phone: 02-05-2023 Cognitive function Voice/Name [facility] Work Phone: 02-04-2023 Cognitive function Appropriate;[facility] Work Phone: 01-26-2023 Cognitive function Voice/Name [facility] Work Phone: 01-21-2023 Cognitive function Level Of Cons ciousness Drowsy;Lethargic [facility] Work Phone: 01-08-2023 Cognitive function Voice/Name [facility] Work Phone: 01-04-2023 Cognitive function Voice/Name [facility] Work Phone: 07-11-2022 Cognitive function Voice/Name [facility] Work Phone: 07-10-2022 Cognitive function Appropriate;[facility] Work Phone: 03-02-2022 Cognitive function Voice/Name [facility] Work Phone: 12-29-2021 Cognitive function Voice/Name [facility] Work Phone: 12-06-2021 Cognitive function Level Of Cons ciousness Awake;Alert;Appropriate [facility] Work Phone: Clinical Notes 10-25-2014 to 10-12-2024 Note Date & Type Note Facility 10-12-2024 Evaluation note Diagnosis Onset Date Resolution Presence of cardiac pacemaker acute October 12, 2024 1:09pm Atrial fibrillation chronic October 12, 2024 1:09pm Diabetes chronic October 12 1:09pm HLD (hyperlipidemia) chronic [facility] 2024 1:09pm HTN (hypertension) chronic October 12, 2024 1:09pm Sick sinus syndrome chronic October 12, 2024 1:09pm [facility] Work Phone: 1(914) 467-735411-20-[address] [facility] 02-13-2023 Consult note Author Haile Bautista [facility] February 13, 2023 2:50pm Note Date/Time February 13, 2023 2:5 0pm [facility] Medical Records Department [address] [place] [address] Counseling Note - Pharmacy 02/13/23 1449 MR#: [id number] Acct: [id number] Name: RICHARD ROY Rep #:[id number] : 1945 77 From: Haile Bautista PCP: Dr. Luis Caldera MD Status :ADM IN Location: [facility] [id number] Pharmacy AR Med Reconciliation Pharmacy Service has performed discharge medication reconciliation for this patient. The patient's discharge medication list was reviewed for discrepancies and discrepancies were resolved. Medications at Discharge Home Medications losartan 50 mg tablet 50 mg PO DAILY blood pressure 03/24/18 atorvastatin 40 mg tablet 40 mg PO QHS cholesterol 05/22/18 tamsulosin 0.4 mg capsule 0.4 mg PO QHS PROSTATE 03/02/22 amlodipine 2.5 mg tablet 2.5 mg PO DAILY BP 30 days #30 tabs 07/11/22 cholecalciferol (vitamin D3) 1,250 mcg (50,000 unit) tablet 1,250 mcg PO MO SUPPLEMENT 01/21/23 duloxetine 60 mg capsule,delayed release (Cymbalta) 60 mg PO DAILY DEPRESSION 01/21/23 insulin lispro 100 unit/mL subcutaneous pen (Humalog KwikPen (U-100) Insulin) See Protocol subcut ACHS DM 01/21/23 metformin 1,000 mg tablet 1,000 mg PO BID DM 01/21/23 ascorbic acid (vitamin C) 500 mg tablet 500 mg PO BID #60 tabs 01/26/23 insulin glargine 100 unit/mL (3 mL) subcutaneous pen (Lantus Solostar U-100 Insulin) 15 unit (0.15 mL) subcut DAILY diabetes #15 mL 01/26/23 sennosides 8.6 mg-docusate sodium 50 mg tablet (Stool Softener-Stimulant Laxative) 2 tab PO BID PRN Constipation #0 tabs 01/26/23 ferrous sulfate 300 mg (60 mg iron)/5 mL oral liquid 300 mg (5 mL) PO DAILY #500mL 02/05/23 pantoprazole 40 mg tablet,delayed release 40 mg PO BID #60 tabs 02/05/23 sucralfate 1 gram tablet 1 g PO 0700,1100,1600 #90 tabs 02/05/23 melatonin 3 mg tablet 3 mg PO QHS Insomnia 02/10/23 menthol 5 % topical gel (Biofreeze (menthol)) 1 ea topical BID back pain 02/10/23 acetaminophen 325 mg tablet 650 mg PO TID PAIN AND FEVER 02/11/23 cephalexin 500 mg capsule 500 mg PO TID #21 caps 02/13/23 memantine 10 mg tablet 10 mg PO BID #0 tabs 02/13/23 warfarin 4 mg tablet (Jantoven) 8 mg (2 x 4 mg) PO DINNER #0 tabs 02/13/23 02/13/23 1450 <Electronically signed by Haile huang> Date _ Haile Grant Signature (if applicable): Date CC: ~ Signed [facility] Work Phone: 1(448) 412-318008-02-2023 Discharge summary Author Gabriel Giraldo [facility] February 13, 2023 2:24pm Note Date/Time February 13, 2023 2:1 5pm [facility] Medical Records Department [address] [place] [address] Transfer to [facility] MR#: [id number] Acct: [id number] Name: RICHARD ROY Rep #:[id number] : 1945 77 From: Gabriel Giraldo DO PCP: Dr. Luis Caldera MD Status :ADM IN Certification of patient admission REQUIRED AT TIME OF ADMISSION. I CERTIFY THAT POST-HOSPITAL ECF SERVICES ARE REQUIRED TO BE GIVEN ON AN IN-PATIENT BASIS BECAUSE OF THE ABOVE NAMED PATIENT'S NEED FOR INTERMEDIATE CARE ON A CONTINUING BASIS FOR THE CONDITION(S) FOR WHICH HE/SHE WAS RECEIVING IN-PATIENT HOSPITAL SERVICES PRIOR TO HIS/HER TRANSFER TO THE ECF. 02/13/23 1424<Electronically signed by Gabriel Giraldo DO> Diet Diet Order/Speech Therapy: 02/12/23 14:46 Diet: Cardiac: Calorie-Controlled Food consistency:: Regular Liquid Consistency:: Regular/Thin Dietary Modifications:: Consistent Carbohydrate Type of Dietary Supplement:: Glucerna Shake Is pt able to select menu?: No Diet Comments: 120mL glucerna shake TID w/ meals How many daily calories?: 2000 calorie Routine Orders/Code Status Routine Lab Work: - (INR on 02/14/23; fingerstick blood sugars AC nightly, Humalogsubcu per sliding scale: 200-250: 5 units, 251-300: 8 units, 301-350: 12 units) Code Status: DNRCC-A (no intubation) Therapies Weight Bearing: Full weight bearing Physical Therapy: Eval and Treat Occupational Therapy: Eval and Treat Problem/Diagnosis (1) Bacteremia: Status: Acute Code(s): R78.81 - Bacteremia Plan 1. Bacteremia with Klebsiella pneumoniae #2 sick sinus syndrome-status post pacemaker insertion #3 essential hypertension-patient is to remain on his current medications #4 type 2 diabetes-patient will have fingerstick blood sugars checked, sliding scale insulin will be given as needed #5 chronic use of anticoagulants-patient's INR will be rechecked tomorrow, patient's INR today was 1.6, I will give the patient extra warfarin today. #6 iron deficiency anemia-patient will get be given IV iron today #7 dementia-patient is on memantine at this time, I will increase his dosage to 10 mg twice daily Total clinical time spent by myself addressing the patient's medical issues, reviewing all of his data, and collaborating with the patient's care team: 35 minutes Allergies/Procedures Done in Hospital Allergies pantoprazole Adverse Reaction (Verified 02/11/23 19:33) NEEDS FOLLOW-UP on SNF paperwork, unsure of reaction propofol Adverse Reaction (Verified 02/11/23 19:33) Other GETS AGGRESSIVE Procedures: None Type of Care/Length of Stay Estimated LOS: Convalescent Care Less Than 30 days Type of Care Needed: Skilled Rehab Potential: Fair Prognosis: Fair Additional Orders/Day of Discharge H&P will serve as current which was dated: 02/11/23 Day of Discharge: 02/13/23 Dietary and Speech Recommendations Dietitian Recommendations/Changes: Will change diet to 2000 calorie/consistent carbohydrate; cardiac. Will add 120mL Glucerna Shake TID w/ meals and d/c with medpass. Discharge Plan Admission Admit Date/Time: 02/11/23 18:39 Primary Reason for Your Visit: Klebsiella pneumoniae bacteremia Attending Provider: Gabriel Giraldo Primary Care Provider: Luis Caldera Consulting Providers: Smith Leija Discharge Orders/Prescriptions Prescriptions: New warfarin [Jantoven] 4 mg Tablet 8 mg PO DINNER Qty: 0 0RF memantine 10 mg Tablet 10 mg PO BID Qty: 0 0RF Continued losartan 50 MG tablet 50 mg PO DAILY Hold Instructions: Hold for 1 week until kidney function returns to normal. atorvastatin 40 MG tablet 40 mg PO QHS tamsulosin 0.4 mg capsule 0.4 mg PO QHS Patient Comments: TAKE 1 CAPSULE BY MOUTH EVERYDAY AT BEDTIME amlodipine 2.5 mg Tablet 2.5 mg PO DAILY 30 Days Qty: 30 0RF sucralfate 1 gram Tablet 1 g PO 0700,1100,1600 Qty: 90 2RF ferrous sulfate 300 mg (60 mg iron)/5 mL liquid 300 mg PO DAILY Qty: 500 2RF pantoprazole 40 mg tablet,delayed release (DR/EC) 40 mg PO BID Qty: 60 2RF Biofreeze (menthol) 5 % gel 1 ea topical BID melatonin 3 mg Tablet 3 mg PO QHS Patient Comments: PRN PER INTERMEDIATE MAR. acetaminophen 325 mg Tablet 650 mg PO TID Patient Comments: PRN PER INTERMEDIATE MAR cephalexin 500 mg capsule 500 mg PO TID Qty: 21 0RF Rx Instructions: for 21 doses- start on 02/14/23 duloxetine [Cymbalta] 60 mg capsule,delayed release(DR/EC) 60 mg PO DAILY cholecalciferol (vitamin D3) 1,250 mcg (50,000 unit) tablet 1,250 mcg PO MO metformin 1,000 mg tablet 1,000 mg PO BID Hold Instructions: Hold for 1 week. insulin lispro [Humalog KwikPen Insulin] 100 unit/mL insulin pen See Protocol subcut ACHS Protocol: 6. Sliding Scale Insulin Custom Condition: mg/dl range Dose/Route: Number of Units Condition: 200-250 Dose/Route: 5 Condition: 251-300 Dose/Route: 8 Condition: 301-350 Dose/Route: 12 Condition: >351 Instruction: NOTIFY MD Protocol Text: Custom Sliding Scale Rx Instructions: 200-250 5 units; 251-300 8 units; 301-350 12 units; 351-1000 call md sennosides-docusate sodium [Stool Softener-Stimulant Laxat] 8.6-50 mg Tablet 2 tab PO BID PRN (Reason: Constipation) Qty: 0 0RF ascorbic acid (vitamin C) 500 mg tablet 500 mg PO BID Qty: 60 2RF insulin glargine [Lantus Solostar U-100 Insulin] 100 UNITS/ML insulin pen 15 unit subcut DAILY Qty: 15 0RF Discontinued warfarin [Jantoven] 5 MG tablet 7.5 mg PO SUTUWETHFRSA Hold Instructions: Hold for 2 more days Patient Comments: blood thinner warfarin 5 mg tablet 10 mg PO MO Hold Instructions: Hold for 2 more days Patient Comments: 10 MG SATURDAY, 7.5 MG ALL OTHER DAYS. PATIENT HAS INR DRAWN BI-WEEKLY. memantine 10 mg tablet 10 mg PO QPM 30 Days Qty: 30 0RF Referrals / Follow Up: Luis Caldera MD [Primary Care Provider] - Júnior Chandra MD [Med Staff - Active Staff] - See Referral Note (As scheduled previously) Disposition Disposition (needs filled in before D/C Order can be placed): Shelter Facility 02/13/23 1424 <Electronically signed by Gabriel Giraldo DO> Cosigner Signature (if applicable): CC: Dr. Luis Caldera MD; Dr. Smith Leija MD ~ [facility] Work Phone: 1(475) 310-467908-01-2023 Progress note Author Gabriel Giraldo [facility] February 12, 2023 4:48pm Note Date/Time February 12, 2023 4:4 8pm [facility] Medical Records Department [address] [place] [address] Progress Note - Hospitalist 02/12/23 1639 MR#: [id number] Acct: [id number] Name: RICHARD ROY Rep #:[id number] : 1945 77 From: Gabriel Giraldo DO PCP: Dr. Luis Caldera MD Status :ADM IN Location: [place] [address] Reason for Visit Reason for Visit: Diagnoses Urinary tract infection, site not specified (02/11/23) Disorientation, unspecified (02/11/23) Weakness (02/11/23) Bacteremia (02/11/23) Presence of cardiac pacemaker (02/11/23) Subjective Subjective Patient was seen and examined today, he is alert and answers simple questions appropriately. I talked briefly with infectious diseases about his care, I alsotalked with cardiology who put his pacemaker in approximately a week ago, cardiology does not think that the patient needs a ANGELITA performed. Patient remains afebrile, his white blood cell count also remains normal. Objective Data Objective Data Vital Signs: Vital Signs Temp Pulse Resp BP Pulse Ox O2 Del Method 97.6 F L 53 L 18 122/56 H 96 Room Air 02/12/23 15:57 02/12/23 15:57 02/12/23 15:57 02/12/23 15:57 02/12/23 15:57 02/12/23 15:57 Oxygen Delivery Method Room Air Weight: 102.9 kg Body Mass Index (BMI) 30.0 Intake & Output: Intake and Output for Last 24 Hours 02/10/23 02/11/23 02/12/23 23:59 23:59 23:59 Intake Total 550 / 550 1773.75 / 1773.75 Balance 550 / 550 1773.75 / 1773.75 Lab / Micro Data 02/12/23 05:57 Labs: Laboratory Results - last 24 hr 02/11/23 18:04: Lactic Acid 2.8 H* 02/11/23 22:45: Lactic Acid 2.2 H* 02/12/23 05:57: WBC 7.5, RBC 2.76 L, Hgb 7.7 L, Hct 24.2 L, MCV 87.7, MCH 27.9, MCHC 31.8 L, RDW Std Deviation 53.7 H, RDW Coeff of Nathaniel 16.9 H, Plt Count 169, MPV 9.0, Immature Gran % (Auto) 2.000 H, Neut % (Auto) 76.5 H, Lymph % (Auto) 8.1 L, [place] % (Auto) 12.5 H, Eos % (Auto) 0.8, Baso % (Auto) 0.1, Absolute Neuts(auto) 5.7, Absolute Lymphs (auto) 0.61 L, Nucleated RBC % 0, PT 19.3 H, INR 1.6 02/12/23 16:02: POC Glucose 152 H Rhythm Strip Rhythm Strip: paced Rate: 95 Ectopy: None Physical Exam Const alert, no apparent distress and average body habitus General Appearance: cooperative, well kempt and well developed Orientation / Consciousness: awake, oriented to person and oriented to place HEENT normocephalic, head/scalp atraumatic and moist oral mucous membranes Eyes PERRL, EOMs intact bilaterally and conjunctivae normal Neck supple, no JVD, thyroid normal and no carotid bruits General: trachea midline Resp normal respiratory effort, no retractions, no use of accessory muscles and clearto auscultation bilaterally Auscultation: Negative for rales, rhonchi or wheezes Cardio regular rate, regular rhythm, S1 normal heart sound, S2 normal heart sound, no murmurs, no rub and no gallops GI normal to inspection, nondistended, normoactive bowel sounds, soft to palpation,non-tender and non-distended Extremity no clubbing, cyanosis or edema Skin no rashes or lesions noted General Skin Exam: no breakdown Neuro CN's II-XII intact bilaterally, moves all extremities, no focal motor deficits and no sensory deficits noted Sensorium / Orientation: awake, alert, oriented to person and oriented to place Speech: speech normal Psych Psych Narrative: Patient has a flat affect Assessment & Plan Assessment/Plan (1) Bacteremia: PLAN: Plan 1. Bacteremia with gram-negative sherman-identification to follow at this time, patient remains on Rocephin, he is being seen by infectious diseases. #2 sick sinus syndrome-status post pacemaker insertion #3 essential hypertension-patient is to remain on his current medications #4 type 2 diabetes-patient will have fingerstick blood sugars checked, sliding scale insulin will be given as needed #5 chronic use of anticoagulants-patient's INR will be rechecked tomorrow, patient's INR today was 1.6, I will give the patient extra warfarin today. #6 iron deficiency anemia-patient will get be given IV iron today #7 dementia-patient is on memantine at this time, I will increase his dosage to 10 mg twice daily Total clinical time spent by myself addressing the patient's medical issues, reviewing all of his data, and collaborating with the patient's care team: 35 minutes Charges/Coding Visit Charges Inpatient E&M: 99278 Subs Hosp L2 02/12/23 1642 <Electronically signed by Gabriel Giraldo DO> Cosigner Signature (if applicable): CC: ~ Signed [facility] Work Phone: 1(260) 681-903208-01-2023 Consult note Author Smith Leija [facility] February 12, 2023 2:16pm Note Date/Time February 12, 2023 2:1 6pm [facility] Medical Records Department [address] [place] [id number] Consultation - Infectious Dx 02/12/23 1412 MR#: [id number] Acct: [id number] Name: RIHCARD ROY Rep #:[id number] : 1945 77 From: Smith huang MD PCP: Dr. Luis Caldera MD Status :[facility]M [id number] Assessment & Plan Assessment/Plan (1) Bacteremia: PLAN: GNR bacteremia from urinary source with recent pacer placement 02/04/23. On ceftriaxone. Will check repeat bcx, TTE, and consult cardiology. Will follow, thank you (2) Presence of cardiac pacemaker: HPI Consult Data Date of Consult: 02/12/23 HPI Narrative Reason for Consultation: bacteremia HPI Narrative: RICHARD ROY, is a 77 M with pacemaker placement 02/04, presented to ED 02/11 with acute onset confusion over past 2-3 days. Was started on keflex in ED 02/10, sent back to [facility]. Had low grade fever, returned here with (+) ucx and (+)bcx with GNR. Admitted on ceftriaxone, feeling ok today. No complaints, deniesfever, chest pain, abd pain, dysuria, n/v/d. Full ROS performed and neg except as noted above. [facility] Medical History AAA (abdominal aortic aneurysm) Amputation of right great toe Anemia Anxiety Aortic aneurysm without rupture Atrial fibrillation COVID-19 Dementia Depression Diabetes Diabetic neuropathy GI bleed HLD (hyperlipidemia) HTN (hypertension) Hyperkalemia Kidney stones Lactic acidosis Leukocytosis Non-smoker NSTEMI, initial episode of care Osteomyelitis Presence of cardiac pacemaker Pulmonary emboli RBBB (right bundle 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) Second degree AV block, Mobitz type II Ulcer of right great toe due to diabetes mellitus Upper gastrointestinal bleed Ureterolithiasis Valvular heart disease Home Medications losartan 50 mg tablet 50 mg PO DAILY blood pressure 03/24/18 [History Last Taken 02/11/23] atorvastatin 40 mg tablet 40 mg PO QHS cholesterol 05/22/18 [History Last Taken 02/10/23] warfarin 5 mg tablet (Jantoven) 7.5 mg PO SUTUWETHFRSA anticoagulant 05/22/18 [History Last Taken 02/10/23] tamsulosin 0.4 mg capsule 0.4 mg PO QHS PROSTATE 03/02/22 [History Last Taken 02/10/23] warfarin 5 mg tablet 10 mg PO MO BLOOD THINNER 03/02/22 [History Last Taken 02/04/23] amlodipine 2.5 mg tablet 2.5 mg PO DAILY BP 30 days #30 tabs 07/11/22 [Rx Last Taken 02/11/23] cholecalciferol (vitamin D3) 1,250 mcg (50,000 unit) tablet 1,250 mcg PO MO SUPPLEMENT 01/21/23 [History Last Taken 02/11/23] duloxetine 60 mg capsule,delayed release (Cymbalta) 60 mg PO DAILY DEPRESSION 01/21/23 [History Last Taken 02/11/23] insulin lispro 100 unit/mL subcutaneous pen (Humalog KwikPen (U-100) Insulin) See Protocol subcut ACHS DM 01/21/23 [History Last Taken 01/21/23] metformin 1,000 mg tablet 1,000 mg PO BID DM 01/21/23 [History Last Taken 02/11/23] ascorbic acid (vitamin C) 500 mg tablet 500 mg PO BID #60 tabs 01/26/23 [Rx Last Taken 02/11/23] insulin glargine 100 unit/mL (3 mL) subcutaneous pen (Lantus Solostar U-100 Insulin) 15 unit (0.15 mL) subcut DAILY diabetes #15 mL 01/26/23 [Rx Last Taken 02/11/23] memantine 10 mg tablet 10 mg PO QPM 30 days #30 tabs 01/26/23 [Rx Last Taken 02/10/23] sennosides 8.6 mg-docusate sodium 50 mg tablet (Stool Softener-Stimulant Laxative) 2 tab PO BID PRN Constipation #0 tabs 01/26/23 [Rx Last Taken Unknown] ferrous sulfate 300 mg (60 mg iron)/5 mL oral liquid 300 mg (5 mL) PO DAILY #500mL 02/05/23 [Rx Last Taken 02/11/23] pantoprazole 40 mg tablet,delayed release 40 mg PO BID #60 tabs 02/05/23 [Rx Last Taken 02/11/23] sucralfate 1 gram tablet 1 g PO 0700,1100,1600 #90 tabs 02/05/23 [Rx Last Taken 02/11/23] melatonin 3 mg tablet 3 mg PO QHS Insomnia 02/10/23 [History Last Taken 02/10/23] menthol 5 % topical gel (Biofreeze (menthol)) 1 ea topical BID back pain 02/10/23 [History Last Taken Unknown] acetaminophen 325 mg tablet 650 mg PO TID PAIN AND FEVER 02/11/23 [History Last Taken 02/11/23] cephalexin 500 mg capsule 500 mg PO TID 02/11/23 [History Last Taken 02/11/23] Allergy/AdvReac Type Severity Reaction Status Date / Time pantoprazole AdvReac NEEDS Verified 02/11/23 19:33 FOLLOW-UP propofol AdvReac Other Verified 02/11/23 19:33 Family History Mother Heart disease Diabetes Hypertension Father Heart disease Surgical History H/O aortic valve repair History of AAA (abdominal aortic aneurysm) repair History of foot surgery History of thoracic aortic aneurysm repair Hx of abdominal surgery Social History housing: senior living current occupational status: retired Smoking Status: Never smoker alcohol intake: never substance use type: does not use Physical Exam Const alert and no apparent distress Constitutional Narrative: oriented x2 General Appearance: cooperative and well developed HEENT normocephalic and head/scalp atraumatic Eyes PERRL and EOMs intact bilaterally Neck supple and No nodes Resp normal air movement and clear to auscultation bilaterally Cardio regular rate, regular rhythm and no murmurs GI soft to palpation, non-tender and non-distended Extremity General Extremity: Negative for edema Skin no rashes or lesions noted Skin Narrative: No swelling over L chest pacer site Neuro CN's II-XII intact bilaterally Lab / Micro Data Attestation: I reviewed the patient's lab results. 02/12/23 05:57 Labs: Laboratory Results - last 24 hr 02/11/23 18:04: Lactic Acid 2.8 H* 02/11/23 22:45: Lactic Acid 2.2 H* 02/12/23 05:57: WBC 7.5, RBC 2.76 L, Hgb 7.7 L, Hct 24.2 L, MCV 87.7, MCH 27.9, MCHC 31.8 L, RDW Std Deviation 53.7 H, RDW Coeff of Nathaniel 16.9 H, Plt Count 169, MPV 9.0, Immature Gran % (Auto) 2.000 H, Neut % (Auto) 76.5 H, Lymph % (Auto) 8.1 L, [place] % (Auto) 12.5 H, Eos % (Auto) 0.8, Baso % (Auto) 0.1, Absolute Neuts(auto) 5.7, Absolute Lymphs (auto) 0.61 L, Nucleated RBC % 0, PT 19.3 H, INR 1.6 Rhythm Strip Rhythm Strip: paced Rate: 95 Ectopy: None 02/12/23 1416 <Electronically signed by Smith Lejia MD> Cosigner Signature (if applicable): CC: Dr. Luis Caldera MD; Dr. Smith Leija MD~ Signed [facility] Work Phone: 1(806) 435-446708-01-2023 Discharge summary Author Dandy Sauer [facility] February 12, 2023 2:03am Note Date/Time February 11, 2023 5:05 pm [facility] Medical Records Department [address] [place] [address] Emergency Department Summary 02/11/23 MR#: [id number] Acct: [id number] Name: RICHARD ROY Rep #:[id number] : 1945 77 From: Dandy Sauer MD PCP: Dr. Luis Caldera MD Status :ADM IN Location: [place] [address] HPI History of Present Illness Chief Complaint: Alt LOC Informant: patient, spouse/S.O., EMS and SNF Narrative Narrative: Patient had a pacemaker placed last week for SSS, started becoming lethargic yesterday of the day before, was seen here and diagnosed with a urinary tract infection, started on cephalexin. Returns today, more lethargic than he was yesterday, but otherwise unchanged due to blood cultures returning positive for gram-negative rods, both bottles. Urine culture still pending. Spouse states that he has been getting some mild dementia recently, his confusion is no differently recently, mostly the lethargy is the issue acutely. [facility] Medical History (Updated 02/11/23 @ 19:31 by Nidia Artis) AAA (abdominal aortic aneurysm) Amputation of right great toe Anemia Anxiety Aortic aneurysm without rupture Atrial fibrillation COVID-19 Dementia Depression Diabetes Diabetic neuropathy GI bleed HLD (hyperlipidemia) HTN (hypertension) Hyperkalemia Kidney stones Lactic acidosis Leukocytosis Non-smoker NSTEMI, initial episode of care Osteomyelitis Presence of cardiac pacemaker Pulmonary emboli RBBB (right bundle 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) Second degree AV block, Mobitz type II Ulcer of right great toe due to diabetes mellitus Upper gastrointestinal bleed Ureterolithiasis Valvular heart disease Home Medications losartan 50 mg tablet 50 mg PO DAILY blood pressure 03/24/18 [History Last Taken 02/11/23] atorvastatin 40 mg tablet 40 mg PO QHS cholesterol 05/22/18 [History Last Taken 02/10/23] warfarin 5 mg tablet (Jantoven) 7.5 mg PO SUTUWETHFRSA anticoagulant 05/22/18 [History Last Taken 02/10/23] tamsulosin 0.4 mg capsule 0.4 mg PO QHS PROSTATE 03/02/22 [History Last Taken 02/10/23] warfarin 5 mg tablet 10 mg PO MO BLOOD THINNER 03/02/22 [History Last Taken 02/04/23] amlodipine 2.5 mg tablet 2.5 mg PO DAILY BP 30 days #30 tabs 07/11/22 [Rx Last Taken 02/11/23] cholecalciferol (vitamin D3) 1,250 mcg (50,000 unit) tablet 1,250 mcg PO MO SUPPLEMENT 01/21/23 [History Last Taken 02/11/23] duloxetine 60 mg capsule,delayed release (Cymbalta) 60 mg PO DAILY DEPRESSION 01/21/23 [History Last Taken 02/11/23] insulin lispro 100 unit/mL subcutaneous pen (Humalog KwikPen (U-100) Insulin) See Protocol subcut ACHS DM 01/21/23 [History Last Taken 01/21/23] metformin 1,000 mg tablet 1,000 mg PO BID DM 01/21/23 [History Last Taken 02/11/23] ascorbic acid (vitamin C) 500 mg tablet 500 mg PO BID #60 tabs 01/26/23 [Rx Last Taken 02/11/23] insulin glargine 100 unit/mL (3 mL) subcutaneous pen (Lantus Solostar U-100 Insulin) 15 unit (0.15 mL) subcut DAILY diabetes #15 mL 01/26/23 [Rx Last Taken 02/11/23] memantine 10 mg tablet 10 mg PO QPM 30 days #30 tabs 01/26/23 [Rx Last Taken 02/10/23] sennosides 8.6 mg-docusate sodium 50 mg tablet (Stool Softener-Stimulant Laxative) 2 tab PO BID PRN Constipation #0 tabs 01/26/23 [Rx Last Taken Unknown] ferrous sulfate 300 mg (60 mg iron)/5 mL oral liquid 300 mg (5 mL) PO DAILY #500mL 02/05/23 [Rx Last Taken 02/11/23] pantoprazole 40 mg tablet,delayed release 40 mg PO BID #60 tabs 02/05/23 [Rx Last Taken 02/11/23] sucralfate 1 gram tablet 1 g PO 0700,1100,1600 #90 tabs 02/05/23 [Rx Last Taken 02/11/23] melatonin 3 mg tablet 3 mg PO QHS Insomnia 02/10/23 [History Last Taken 02/10/23] menthol 5 % topical gel (Biofreeze (menthol)) 1 ea topical BID back pain 02/10/23 [History Last Taken Unknown] acetaminophen 325 mg tablet 650 mg PO TID PAIN AND FEVER 02/11/23 [History Last Taken 02/11/23] cephalexin 500 mg capsule 500 mg PO TID 02/11/23 [History Last Taken 02/11/23] Allergy/AdvReac Type Severity Reaction Status Date / Time pantoprazole AdvReac NEEDS Verified 02/11/23 19:33 FOLLOW-UP propofol AdvReac Other Verified 02/11/23 19:33 Family History Mother Heart disease Diabetes Hypertension Father Heart disease Surgical History (Updated 02/11/23 @ 19:31 by Nidia Artis) H/O aortic valve repair History of AAA (abdominal aortic aneurysm) repair History of foot surgery History of thoracic aortic aneurysm repair Hx of abdominal surgery Social History housing: senior living current occupational status: retired Smoking Status: Never smoker alcohol intake: never substance use type: does not use ROS ROS ED Constitutional Constitutional ED: Reports fever(s), lethargy and weakness; Denies chills Eyes Eyes: Denies change in vision or diplopia ENT ENT ED: Denies sore throat Cardiovascular Cardiovascular: Denies chest pain Respiratory/Chest Respiratory/Chest: Denies cough or dyspnea Gastrointestinal Gastrointestinal: Denies abdominal pain, diarrhea, nausea or vomiting Genitourinary Genitourinary ED: Denies dysuria or hematuria Musculoskeletal Musculoskeletal: Denies back pain or neck pain Integumentary Denies abscess or rash Neurologic Neurologic: Reports as per HPI, memory loss and other Details: Mild confusion atbaseline per spouse ; Denies headache(s), paresthesias or weakness Psychiatric Psychiatric: Denies anxiety or suicidal thoughts EXAM Physical Exam Const Vital Signs: 02/11/23 16:21 02/11/23 16:43 02/11/23 16:50 Temperature 99.1 F Temperature Source Oral Pulse Rate 97 98 98 Respiratory Rate 18 22 H 19 H Blood Pressure 119/57 L Blood Pressure Mean 77 Pulse Ox 96 96 Oxygen Delivery Method Room Air 02/11/23 17:00 Temperature Temperature Source Pulse Rate 77 Respiratory Rate 21 H Blood Pressure Blood Pressure Mean Pulse Ox Oxygen Delivery Method Positive well nourished and well developed General Appearance ED: well developed and NAD HEENT Reports moist mucous membranes normocephalic and atraumatic Eyes PERRL and EOMs intact bilaterally Neck full ROM and supple Chest Wall inspection of chest normal Resp normal respiratory effort and clear to auscultation bilaterally Cardio regular rate, regular rhythm and no murmurs Rate: Negative for tachycardic GI non-tender and non-distended Auscultation: normoactive bowel sounds Palpation: soft Back/Spine no CVA tenderness General Back: other FROM Extremity normal to inspection General Extremety ED: Negative for edema, pulses abnormal or tenderness General Extremity: Negative for edema or pulses abnormal Neuro CN's II-XII intact bilaterally and no sensory deficits noted Neuro Narrative: Alert and oriented to person and general place. Lethargic but alerts easily tovoice. Follows commands. GCS 14. Sensorium / Orientation: awake and alert Motor Exam: general weakness Psych mental status grossly normal Skin no rashes or lesions noted and no wounds MDM MDM MDM Narrative Medical decision making narrative: I reviewed his recent ED visit, he also had labs done this morning that looked similar and no worse, his lactate was 1.9 yesterday, his urinalysis was consistent with infection, I reviewed the culture results which I reported as above, they are still reporting as such. I looked through his entire history ofmicrobiology, he has never had a positive urine culture in the past. Therefore will empirically cover him with broad-spectrum antibiotics IV Rocephin, I am repeating his lactate and give him some IV fluids although his vital signs look normal now, he was having low-grade fevers, his INR is subtherapeutic at 1.5, and he has a nonfocal neurologic exam so I do not think he needs a CT of the head. His neck is supple and not examining like meningitis I think all of this is consistent with bacteremia due to UTI. History & Record Review Additional record(s) reviewed:: Prior outpatient record, Prior ED visit and Prior labs Lab Data Attestation: I reviewed the patient's lab results. Labs: Laboratory Results - last 24 hr 02/11/23 18:04 Lactic Acid 2.8 H* Rhythm Strip Rhythm Strip: paced Rate: 95 Ectopy: None EKG Initial EKG: Attestation: I personally reviewed and interpreted this EKG as follows: Interpretation: Paced (Underlying atrial fibrillation with ventricular pacing and capture) Management Discussion w/another healthcare provider: Hospitalist Discharge Plan Dx/Rx/DC Orders Clinical Impression: Subtherapeutic international normalized ratio (INR), UTI (urinary tract infection), Bacteremia Disposition Disposition: Acute Care Hospital [facility] Discharge Date/Time: 02/11/23 19:06 What to do if you have Problems For any increased pain, shortness of breath, bleeding, nausea or vomiting, chestpain, or any unexpected problems, contact your Primary Care Provider. Call [employer] [facility] ([phone]) or report to the closest Emergency Room. Call 911 if necessary. 02/12/23 0203 <Electronically signed by Dandy Sauer MD> Cosigner Signature (if applicable): CC: Dr. Luis Caldera MD ~ Signed [facility] Work Phone: 1(205) 283-511807-31-2023 History and physical note Author Jesus Burnham [facility] February 11, 2023 7:38pm Note Date/Time February 11, 2023 7:39 pm [facility] Medical Records Department [address] [place] [address] History & Physical Exam 02/11/231928 MR#: [id number] Acct: [id number] Name: RICHARD ROY Rep #:[id number] : 1945 77 From: Jesus Burnham MD PCP: Dr. Luis Caldera MD Status :ADM IN Location: [facility] SL965-3 HPI - General General Date of Admission: 02/11/23 Date of Service: 02/11/23 Chief Complaint: Urinary tract infection and confusion HPI Narrative RICHARD ROY, is a 77 M who presents to the emergency room with chief complaintof confusion and diagnosis of urinary tract infection. Patient was admitted anddischarged February 05 and was treated for gastrointestinal bleed as well as cardiacpacemaker for symptomatic bradycardia at that time. Patient was seen in the emergency room yesterday and treated for urinary tract infection and sent back to the senior living facility, however, today the patient has become more obtunded and sleeping excessively. Lactic acid elevation is noted and patient is on pacemaker. He denies any chest pain, shortness of breath and/or fevers orchills however is not a great historian at present time. Patient's is present at bedside and apparently the son is the DURABLE POWER OF RESULTS ENGINEER for healthcare and has orders signed for DNR CCA with no intubation. He will be admitted to the general medical floor placed on Rocephin, consult for infectiousdisease due to new implanted pacemaker. [facility] Medical History Amputation of right great toe Anemia Aortic aneurysm without rupture COVID-19 Diabetes Diabetic neuropathy HLD (hyperlipidemia) HTN (hypertension) Hyperkalemia Lactic acidosis Leukocytosis NSTEMI, initial episode of care Osteomyelitis Presence of cardiac pacemaker Pulmonary emboli RBBB (right bundle 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) Second degree AV block, Mobitz type II Ulcer of right great toe due to diabetes mellitus Upper gastrointestinal bleed Ureterolithiasis Valvular heart disease Home Medications losartan 50 mg tablet 50 mg PO DAILY blood pressure 03/24/18 [History Last Taken 01/20/23] atorvastatin 40 mg tablet 40 mg PO QHS cholesterol 05/22/18 [History Last Taken 01/20/23] warfarin 5 mg tablet (Jantoven) 7.5 mg PO SUTUWETHFRSA anticoagulant 05/22/18 [History Last Taken 01/20/23] tamsulosin 0.4 mg capsule 0.4 mg PO QHS PROSTATE 03/02/22 [History Last Taken 01/20/23] warfarin 5 mg tablet 10 mg PO MO BLOOD THINNER 03/02/22 [History Last Taken 01/02/23] amlodipine 2.5 mg tablet 2.5 mg PO DAILY BP 30 days #30 tabs 07/11/22 [Rx Last Taken 01/20/23] acetaminophen 325 mg tablet 650 mg (2 x 325 mg) PO Q4H PRN PRN PAIN AND FEVER #0tabs 01/08/23 [Rx Last Taken 01/19/23] cholecalciferol (vitamin D3) 1,250 mcg (50,000 unit) tablet 1,250 mcg PO MO SUPPLEMENT 01/21/23 [History Last Taken 01/14/23] duloxetine 60 mg capsule,delayed release (Cymbalta) 60 mg PO DAILY DEPRESSION 01/21/23 [History Last Taken 01/20/23] insulin lispro 100 unit/mL subcutaneous pen (Humalog KwikPen (U-100) Insulin) See Protocol subcut ACHS DM 01/21/23 [History Last Taken 01/21/23] metformin 1,000 mg tablet 1,000 mg PO BID DM 01/21/23 [History Last Taken 01/20/23] ascorbic acid (vitamin C) 500 mg tablet 500 mg PO BID #60 tabs 01/26/23 [Rx Last Taken Unknown] insulin glargine 100 unit/mL (3 mL) subcutaneous pen (Lantus Solostar U-100 Insulin) 15 unit (0.15 mL) subcut DAILY diabetes #15 mL 01/26/23 [Rx Last Taken 01/20/23] memantine 10 mg tablet 10 mg PO QPM 30 days #30 tabs 01/26/23 [Rx Last Taken Unknown] sennosides 8.6 mg-docusate sodium 50 mg tablet (Stool Softener-Stimulant Laxative) 2 tab PO BID PRN Constipation #0 tabs 01/26/23 [Rx Last Taken Unknown] ferrous sulfate 300 mg (60 mg iron)/5 mL oral liquid 300 mg (5 mL) PO DAILY #500mL 02/05/23 [Rx Last Taken Unknown] pantoprazole 40 mg tablet,delayed release 40 mg PO BID #60 tabs 02/05/23 [Rx Last Taken Unknown] sucralfate 1 gram tablet 1 g PO 0700,1100,1600 #90 tabs 02/05/23 [Rx Last Taken Unknown] melatonin 3 mg tablet 3 mg PO QHS Insomnia 02/10/23 [History Last Taken Unknown] menthol 5 % topical gel (Biofreeze (menthol)) 1 ea topical BID 02/10/23 [History Last Taken Unknown] cephalexin 500 mg capsule 500 mg PO TID 7 days #21 caps 02/11/23 [Rx Last Taken Unknown] Allergy/AdvReac Type Severity Reaction Status Date / Time pantoprazole AdvReac NEEDS Verified 02/11/23 19:33 FOLLOW-UP propofol AdvReac Other Verified 02/11/23 19:33 Family History Mother Heart disease Diabetes Hypertension Father Heart disease Surgical History (Updated 02/11/23 @ 19:31 by Nidia Artis) H/O aortic valve repair History of AAA (abdominal aortic aneurysm) repair History of foot surgery History of thoracic aortic aneurysm repair Hx of abdominal surgery Social History housing: senior living current occupational status: retired Smoking Status: Never smoker alcohol intake: never substance use type: does not use ROS Constitutional Constitutional: Reports fatigue and weakness; Denies chills or fever(s) Eyes Eyes: Denies blurry vision ENT HEENT: Denies abnormal hearing Cardiovascular Cardiovascular: Denies chest pain Respiratory/Chest Respiratory/Chest: Denies cough Gastrointestinal Gastrointestinal: Denies abdominal pain Genitourinary Genitourinary: Reports urinary frequency Musculoskeletal Musculoskeletal: Denies back pain Integumentary Integumentary: Denies dry skin Psychiatric Psychiatric: Denies anxiety Hematologic/Lymphatic Hematologic/Lymphatic: Reports anemia Vital Signs Vital Signs Vital Signs: 02/11/23 16:21 02/11/23 16:43 02/11/23 16:50 Temperature 99.1 F Temperature Source Oral Pulse Rate 97 98 98 Respiratory Rate 18 22 H 19 H Blood Pressure 119/57 L Blood Pressure Mean 77 Pulse Ox 96 96 Oxygen Delivery Method Room Air 02/11/23 17:00 02/11/23 18:52 02/11/23 18:53 Temperature 99.1 F 99.1 F Temperature Source Oral Oral Pulse Rate 77 90 88 Respiratory Rate 21 H 18 18 Blood Pressure 129/71 H 129/71 H Blood Pressure Mean 90 90 Pulse Ox 92 93 Oxygen Delivery Method Room Air Room Air Weight Weight: 226 lb 13.69 oz Body Mass Index (BMI) 29.9 Physical Exam Const alert Orientation / Consciousness: confused HEENT normocephalic and head/scalp atraumatic Eyes PERRL Neck no lymphadenopathy Lymph Lymphatic: no lymphadenopathy noted Resp normal respiratory effort, normal air movement and clear to auscultation bilaterally Cardio S1 normal heart sound and S2 normal heart sound Rhythm: abnormal rhythm irregularly irregular Heart Sounds: murmur GI soft to palpation, non-tender and non-distended Extremity no calf tenderness Skin Wounds: wounds noted Wound Narrative: chronic decub ulcer Neuro Motor Exam: general weakness Psych Appearance: appropriate Results Lab / Micro Data Labs: Laboratory Results - last 24 hr 02/11/23 18:04: Lactic Acid 2.8 H* Rhythm Strip Rhythm Strip: paced Rate: 95 Ectopy: None Assessment & Plan Assessment/Plan (1) Bacteremia: (2) Delirium: (3) UTI (urinary tract infection): (4) Weakness: (5) Confusion: (6) Presence of cardiac pacemaker: PLAN: Plan 1. Acute UTI symptoms with delirium?admit patient to general medical floor, start IV Rocephin every 24 hours, consult infectious disease specialist regarding new implanted pacemaker. Repeat CBC BMP in the a.m. and recheck lactic acid per protocol. IV hydration with normal saline 2. CODE STATUS patient is DNR Comfort Care arrest with no intubation 3. DVT prophylaxis?patient is already on Coumadin Charges/Coding Visit Charges Inpatient E&M: 28822 Init Hosp L2 02/11/231937 <Electronically signed by Jesus Burnham MD> Cosigner Signature (if applicable): CC: Dr. Luis Caldera MD; Dr. Jesus Burnham MD~ Signed [facility] Work Phone: 1(262) 580-961007-17-2023 Miscellaneous Notes* Telephone Encounter - Tania Heller LPN - 01/28/2023 2:22 PM EDT Miya with [facility] calls to report pt was admitted to their facility over the weekend. Miya is requesting immunization record be faxed to: [phone]. Immunization record faxed as requested. [facility] Heller LPN [facility] Discharge summary Author Ryan Tinoco [facility] January 26, 2023 12:56pm Note Date/Time January 26, 2023 12:4 6pm [facility] Medical Records Department [address] [place] [id number] Discharge Summary 01/26/23 1157 MR#: [id number] Acct: [id number] Name: RICHARD ROY Rep #:[id number] : 1945 77 From: Ryan Delgado PCP: Dr. Luis Caldera MD Status :ADM IN [facility] Prov[facility] Date of Admission: 01/21/23 Date of Discharge: 01/26/23 Primary Care Physician: Dr. Luis Caldera MD Consultations 01/21/23 11:52 Consult: Gastroenterology Routine Consulting Provider: [facility] Reason for Consult: Upper GI BLeed EMERGENT Consult: No MD Notified: Yes Date Notified: 01/21/23 Time Notified: 10:00 Method of Notification: ED Physician Initiated 01/22/23 08:16 Consult: Cardiology Routine Consulting Provider: Lizzeth Riggs Reason for Consult: Mobitz type 2 AV Block EMERGENT Consult: No Notified: Yes Date Notified: 01/22/23 Time Notified: 08:16 Method of Notification: Verbal Reason For Visit: GI BLEED, SYNCOPE Diagnosis Discharge Diagnosis (1) Second degree AV block, Mobitz type II: Status: Acute Code(s): I44.1 - Atrioventricular block, second degree (2) HTN (hypertension): Status: Chronic Code(s): I10 - Essential (primary) hypertension (3) History of thoracic aortic aneurysm repair: Status: Acute Code(s): Z98.890 - Other specified postprocedural states; Z86.79 - Personal history of other diseases of the circulatory system (4) History of pulmonary embolism: Status: Acute Code(s): Z86.711 - Personal history of pulmonary embolism (5) Valvular heart disease: Status: Acute Code(s): I38 - Endocarditis, valve unspecified (6) Anemia: Status: Acute Code(s): D64.9 - Anemia, unspecified Qualifiers: Anemia type: iron deficiency Iron deficiency anemia type: other iron deficiency Qualified Code(s): D50.8 - Other iron deficiency anemias Plan This is a 77-year-old gentleman being admitted from [facility] for multiple episodes of syncope and upper GI bleed 1. Acute blood loss anemia and hypotension due to upper GI bleed: Patient is being admitted in ICU. His baseline hemoglobin is 13.1 which dropped to 10.7. BP was low 108/70 with baseline 143/64. Patient was resuscitated with IV fluid last blood pressure 133/55. 2 units PRBC typed and crossmatched. Keep NPO. Continue IV fluid Ringer lactate. Patient started on IV pantoprazole drip afterbolus and octreotide drip. GI consulted. H&H monitoring. Patient has historyof gastric ulcer in the past when he had EGD in early . Had last colonoscopy less than a year was normal as per the . His medical care is under [facility]. 01/22: Hemoglobin dropped to 8.9. Patient had 2 units of PRBC transfusion and repeat hemoglobin 10.2. Octreotide discontinued as mentioned below. 01/23: Hemoglobin 8.7. Leukocytosis improving. Most likely reactive. Protonix drip changed to 40 mg IV every 12 hourly 01/24: Hemoglobin 9.0. Leukocytosis improving. Platelet count normal. 01/25: Hemoglobin 8.2. Continue PPI. 01/26: Hemoglobin stable 8.6. Patient discharged on pantoprazole 40 mg p.o. twice daily and sucralfate, ferrous sulfate and vitamin C. Prescriptions given. EGD showed single dysplastic lesion in the stomach treated with APC. Gastritis. Multiple oozing duodenal ulcers with adherent clot. Multiple nonbleeding duodenal ulcers with no stigmata of bleeding.Follow-up in GI clinic with Dr. Hackett in 1 month. 2 Syncopal episode most likely due to hypotension/GI bleed: As per the nursing staff patient had multiple shorts, brief syncopal episodes with intermittent confusion in between. Patient had echo in June 2022 reported EF 65% moderate concentric LVH. Mild MR. Orthostatic BP when patient is stable 01/26 no further issues of syncopal episode during hospital course. 3. Transient A-fib and Mobitz type II, second-degree AV block: Patient is started having irregular heartbeat initially A-fib postmidnight and then about 5AM Mobitz type II AV block. Initial EKG was normal sinus rhythm admission H&P. Second EKG at 9:26 PM shows sinus rhythm with second-degree Mobitz type II blockbut there was 2 dropped heartbeat in EKG. apricot packer shows heart rate slowed down to 48 to 60/min. EKG in the morning about 6 AM today shows sinus rhythm with second- degree Mobitz type II block, RBBB, LAFB bifascicular block. Patient has history of bifascicular block. I talked to the patient's and informed her about the update. Patient has history of ascending aortic aneurysmand had that repaired along with aortic valve in [facility]. His construction project mgr is Dr. Huston in [facility]. I think this is most probably due to start of the octreotide drip as patient was in sinus normal rhythm at time ofadmission. Octreotide discontinued. [employer] consulted. 2D echo ordered. 01/23: Echo states EF 55 to 60%, normal LV systolic function. Trivial MR. Mild diffuse aortic valve calcification. Normal left atrium. 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 Chandra regarding assessment for pacemaker 01/24: Patient has hypernatremia and hyperchloremia. IV fluid D5W started. Patient is still has AV block, P waves but rhythm is irregular. Twelve-lead EKGordered. Discussed with the construction project mgr. Dr. Ling will talk to Dr. Chandra. 01/25: For now plan is to monitor. No plan for pacemaker as per the construction project mgr. apricot packer shows irregular heartbeat , Mobitz type II. Heart rate in 50s. BP normal. Patient has hypernatremia and hyperchloremia. IV fluid D5W +40 mEq KCl at 100 mL/h. Net positive fluid balance 1160 mill. Discussed with the nursing. 01/26: Cardiology want to follow-up in office for further determination regardingputting a pacemaker. sodium improved to 143, chloride 114. D5W discontinued. ANTHONY on CKD stage IIIa: Patient was admitted with creatinine 1.99 and improved to1.28. Today BUNs/creatinine 28/1.4 and baseline. I think patient baseline is around 1.4. ANTHONY mainly due to hemodynamic fluid shift 3. Essential hypertension and dyslipidemia-hold antihypertensive medications. Statin when oral is allowed. Blood pressure has recovered to 114/63 but patientstill has weak radial pulse. Carotid pulses good. Hold antihypertensive medications. 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 01/23: Glucose between 150?200. Accu-Chek every 6 hourly with coverage of sliding scale. Patient is NPO. #5 DVT on warfarin with supratherapeutic INR: Patient on warfarin. INR 4.2. Vitamin K 5 mg IV given in ED. 01/23: Repeat INR is 1.4. 01/26 continue to hold warfarin for 5 days and then resume. #6 BPH-patient is on Flomax #7 acute debility, disequilibrium: PT and OT ordered. Patient was evaluated by speech therapist and recommended conservative swallowing maneuvers as mentioned in discharge instruction. #8 Advanced dementia: Patient is on antidepressant and Aricept. Will resume once oral is allowed. 01/24: Aricept is likely to cause AV block/conduction disorder therefore will continue to hold. 01/26: Aricept discontinued. Patient is discharged on memantine and 10 mg daily. 9. Lactic acidosis mostly due to hypotension and hypoperfusion: Lactic acid hasdecreased. I do not think patient has suspected or confirmed focus of infection. Therefore sepsis or septic shock is ruled out. VTE prophylaxis: Pharmacological prophylaxis contraindicated in view of GI bleed, acute blood loss anemia and supratherapeutic INR. Bilateral SCDs. Discharge plan discussed with the patient's on phone. Patient has advanceddementia and needs nursing care for feeding, impacting ADL dependent, bowel and bladder care. Limited prognosis. Living will/advanced directive/end of life care: Patient does have living will or advanced directive. 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 After discussion of benefits/risks procedures involved with full code, DNR CC arrest and DNR CC, the patient and his opted for full code. Patient does want artificial life support including intubation, tube feed, ventilator and/chest compression, central venous catheter, vasopressor and DC shock if needed Discharge medication reconciliation done. Discharge follow-up instructions completed. Discharge process discussed with the patient and all questions wereanswered to patient's satisfaction. Total time spent, exact 35 minutes on discharge meds reconciliation, examination, coordination of care with nurses and ancillary staff, review of imaging and blood test and discussion with the patient on follow-up instructions. Clinical Impression(s) from Imaging Studies Brain CT 01/21/23 09:00 IMPRESSION: Chronic involutional changes of the brain. Partial opacification of the right maxillary and right frontal sinus Electronically Signed: Ravindra Sierra MD at 10:43 EDT , Chest X-Ray 01/21/23 09:30 IMPRESSION: No acute abnormality is seen. Echocardiogram 01/22/23 08:24 Interpretation Summary The estimated ejection fraction is 55-60 %. Normal LV systolic function Medications at Discharge Home Medications losartan 50 mg tablet 50 mg PO DAILY blood pressure 03/24/18 atorvastatin 40 mg tablet 40 mg PO QHS cholesterol 05/22/18 warfarin 5 mg tablet (Jantoven) 7.5 mg PO SUTUWETHFRSA anticoagulant 05/22/18 tamsulosin 0.4 mg capsule 0.4 mg PO QHS PROSTATE 03/02/22 warfarin 5 mg tablet 10 mg PO MO BLOOD THINNER 03/02/22 amlodipine 2.5 mg tablet 2.5 mg PO DAILY BP 30 days #30 tabs 07/11/22 acetaminophen 325 mg tablet 650 mg (2 x 325 mg) PO Q4H PRN PRN PAIN AND FEVER #0tabs 01/08/23 melatonin 3 mg tablet 3 mg PO QHS PRN PRN Insomnia #1 TAB 01/08/23 cholecalciferol (vitamin D3) 1,250 mcg (50,000 unit) tablet 1,250 mcg PO MO SUPPLEMENT 01/21/23 duloxetine 60 mg capsule,delayed release (Cymbalta) 60 mg PO DAILY DEPRESSION 01/21/23 insulin lispro 100 unit/mL subcutaneous pen (Humalog KwikPen (U-100) Insulin) See Protocol subcut ACHS DM 01/21/23 metformin 1,000 mg tablet 1,000 mg PO BID DM 01/21/23 ascorbic acid (vitamin C) 500 mg tablet 500 mg PO BID #60 tabs 01/26/23 ferrous sulfate 325 mg (65 mg iron) tablet,delayed release 325 mg PO DAILY #30 tabs 01/26/23 insulin glargine 100 unit/mL (3 mL) subcutaneous pen (Lantus Solostar U-100 Insulin) 15 unit (0.15 mL) subcut DAILY diabetes #15 mL 01/26/23 memantine 10 mg tablet 10 mg PO QPM 30 days #30 tabs 01/26/23 pantoprazole 40 mg tablet,delayed release 40 mg PO BID 30 days #60 tabs 01/26/23 sennosides 8.6 mg-docusate sodium 50 mg tablet (Stool Softener-Stimulant Laxative) 2 tab PO BID PRN Constipation #0 tabs 01/26/23 sucralfate 1 gram tablet 1 g PO 0700,1100,1600 30 days #90 tabs 01/26/23 Physical Exam Narrative Seen and examined. Discussed with the nursing staff. Patient is still having Mobitz type II AV block, but is less frequent. Heart rate in 50s.. Discussed with the construction project mgr. No chest pain or tightness. Physical exam General: Awake, mild lethargy. Cooperative. BMI 28.9 KG per square meter. HEENT: Atraumatic, PERRLA, EOMI, Normocephalic Oral: Oral mucosa moist. No Gingival or Mucosal Lesions/ Ulcerations Neck: Supple, No JVD, Negative Carotid Bruits Lungs: Air entry diminished in bilateral lung bases. No crepitation/rhonchi Cardiovascular: Irregular sinus rhythm, P wave present. Bradycardia. Normal S1, Normal S2, pansystolic murmur over cardiac apex. Abdomen: Bowel Sounds Present, Soft, Non Tender, Non-Distended : No renal angle tenderness. No suprapubic tenderness. Extremities: No edema, Capillary Refill Less than 3 Seconds Skin: No rashes, No breakdown Musculoskeletal: Muscle strength 4+/5 at knee and hip joints. ROM restricted. No Tenderness to Palpation of Joints or Extremities Neurological: Cranial nerves II-XII grossly intact, DTR 2+/4 and Symmetrical, Neuro grossly intact Psych/Mental Status: Flat affect. Amnesia/cognitive deficit. Dementia. Weight / BMI Weight Weight: 213 lb 2.992 oz Body Mass Index (BMI) 28.2 ABG / Lab / Microbiology Data 01/26/23 06:37 01/26/23 06:37 Laboratory: Laboratory Results - last 24 hr 01/22/23 11:32: IgG Not Reportable, DAVID M-Jose 01/25/23 12:17: POC Glucose 175 H 01/25/23 17:05: POC Glucose 192 H 01/26/23 00:54: POC Glucose 199 H 01/26/23 06:10: POC Glucose 226 H 01/26/23 06:37: WBC 8.5, RBC 3.06 L, Hgb 8.6 L, Hct 27.1 L, MCV 88.6, MCH 28.1, MCHC 31.7 L, RDW Std Deviation 50.6 H, RDW Coeff of Nathaniel 15.9 H, Plt Count 217, MPV 9.9, Immature Gran % (Auto) 2.200 H, Neut % (Auto) 78.4 H, Lymph % (Auto) 8.1 L, [place] % (Auto) 9.6, Eos % (Auto) 1.6, Baso % (Auto) 0.1, Absolute Neuts (auto) 6.7, Absolute Lymphs (auto) 0.69 L, Nucleated RBC % 0.5, Sodium 143, Potassium 3.8, Chloride 114 H, Carbon Dioxide 23.0, Anion Gap 6, BUN 28 H, Creatinine 1.49 H, Estim Creat Clear Calc 48.41, Est GFR (MDRD) Af Amer 59 L, Est GFR (MDRD) Non-Af 49 L, BUN/Creatinine Ratio 18.8, Glucose 235 H, Calcium 8.5, Phosphorus 2.4 L, Magnesium 1.8 Microbiology: Microbiology 01/21/23 09:15 Stool Stool Occult Blood (KLAUS) - Final Occult Blood Positive Meaningful Use Info Meaningful Use Diagnoses (Choose all that apply): None applicable Discharge Plan Admission Admit Date/Time: 01/21/23 10:32 Primary Reason for Your Visit: Syncope, Mobitz Type 2 AV block, GI Bleed Attending Provider: Ryan Tinoco Primary Care Provider: Luis Caldera Consulting Providers: Lizzeth Riggs Discharge Orders/Prescriptions Prescriptions: New sucralfate 1 gram Tablet 1 g PO 0700,1100,1600 30 Days Qty: 90 0RF sennosides-docusate sodium [Stool Softener-Stimulant Laxat] 8.6-50 mg Tablet 2 tab PO BID PRN (Reason: Constipation) Qty: 0 0RF pantoprazole 40 mg Tablet,Delayed Release (Dr/Ec) 40 mg PO BID 30 Days Qty: 60 2RF Rx Instructions: 40 mg twice daily for 2 months and then once daily ferrous sulfate 325 mg (65 mg iron) tablet,delayed release (DR/EC) 325 mg PO DAILY Qty: 30 2RF ascorbic acid (vitamin C) 500 mg tablet 500 mg PO BID Qty: 60 2RF memantine 10 mg tablet 10 mg PO QPM 30 Days Qty: 30 0RF Continued atorvastatin 40 MG tablet 40 mg PO QHS tamsulosin 0.4 mg capsule 0.4 mg PO QHS Patient Comments: TAKE 1 CAPSULE BY MOUTH EVERYDAY AT BEDTIME amlodipine 2.5 mg Tablet 2.5 mg PO DAILY 30 Days Qty: 30 0RF acetaminophen 325 mg Tablet 650 mg PO Q4H PRN PRN (Reason: PAIN AND FEVER) Qty: 0 0RF Patient Comments: PRN PER INTERMEDIATE MAR melatonin 3 mg Tablet 3 mg PO QHS PRN PRN (Reason: Insomnia) Qty: 1 0RF Patient Comments: PRN PER INTERMEDIATE MAR. duloxetine [Cymbalta] 60 mg capsule,delayed release(DR/EC) 60 mg PO DAILY cholecalciferol (vitamin D3) 1,250 mcg (50,000 unit) tablet 1,250 mcg PO MO insulin lispro [Humalog KwikPen Insulin] 100 unit/mL insulin pen See Protocol subcut [facility] Protocol: 6. Sliding Scale Insulin Custom Condition: mg/dl range Dose/Route: Number of Units Condition: 200-250 Dose/Route: 5 Condition: 251-300 Dose/Route: 8 Condition: 301-350 Dose/Route: 12 Condition: >351 Instruction: NOTIFY MD Protocol Text: Custom Sliding Scale Changed insulin glargine [Lantus Solostar U-100 Insulin] 100 UNITS/ML insulin pen 15 unit subcut DAILY Qty: 15 0RF Held losartan 50 MG tablet 50 mg PO DAILY Hold Instructions: Hold for 1 week until kidney function returns to normal. warfarin [Jantoven] 5 MG tablet 7.5 mg PO SUTUWETHFR Hold Instructions: Hold for 2 more days Patient Comments: blood thinner warfarin 5 mg tablet 10 mg PO MO Hold Instructions: Hold for 2 more days Patient Comments: 10 MG SATURDAY, 7.5 MG ALL OTHER DAYS. PATIENT HAS INR DRAWN BI-WEEKLY. metformin 1,000 mg tablet 1,000 mg PO BID Hold Instructions: Hold for 1 week. Discontinued metoprolol succinate 200 MG tablet 200 mg PO DAILY Patient Comments: HYPERTENSION donepezil [Aricept] 5 mg tablet 5 mg PO QHS Qty: 1 0RF Patient Comments: PER FACILITY ORDER PT IS TO TAKE 5MG FOR 3 WEEKS THEN INCREASE TO 10 MG DAILY. PER SEP PT IS GIVEN BOTH 5 MG AND 10 MG DAILY AT BEDTIME. PER SEP 5 MG LAST DOSE IS ON 01/28/23. Rx Instructions: 5 mg nightly x3 weeks, then increase to 10 mg nightly thereafter donepezil 10 mg tablet 10 mg PO QHS Referrals / Follow Up: Luis Caldera MD [Primary Care Provider] - Júnior Chandra MD [Med Staff - Active Staff] - Within 2 Weeks FriendDO Liu [Med Staff - Active Staff] - Within 1 Month Disposition Disposition (needs filled in before D/C Order can be placed): Shelter Facility Charges/Coding Visit Charges Inpatient E&M: 86827 Disch Hosp >30min 01/26/23 1256 <Electronically signed by Ryan Tinoco MD> Cosigner Signature (if applicable): CC: Dr. Luis Caldera MD; Dr. Ryan Tinoco MD~ Signed [facility] Work Phone: 1(400) 450-725107-15-2023 Discharge summary Author Ryan Tinoco [facility] January 26, 2023 11:57am Note Date/Time January 26, 2023 7:59 am [facility] Medical Records Department [address] [place] [address] Transfer to [facility] MR#: [id number] Acct: [id number] Name: RICHARD ROY Rep #:[id number] : 1945 77 From: Ryan Delgado PCP: Dr. Luis Caldera MD Status :ADM IN Certification of patient admission REQUIRED AT TIME OF ADMISSION. I CERTIFY THAT [facility] ARE REQUIRED TO BE GIVEN ON AN IN-PATIENT BASIS BECAUSE OF THE ABOVE NAMED PATIENT'S NEED FOR INTERMEDIATE CARE ON A CONTINUING BASIS FOR THE CONDITION(S) FOR WHICH HE/SHE WAS RECEIVING IN-PATIENT HOSPITAL SERVICES PRIOR TO HIS/HER TRANSFER TO THE [facility]. 01/26/23 1157<Electronically signed by Ryan Tinoco MD> Diet Diet Order/Speech Therapy: 01/25/23 09:42 Diet: Sodium Restricted (MOD) Food consistency:: Soft & Bite Sized Liquid Consistency:: Regular/Thin Is pt able to select menu?: No Diet Comments: Sodium res., dir. sup. meds crushed in , alt. bites/sips1:1,sips 1@time Routine Orders/Code Status Suppository Type: Dulcolax 10mg Suppository Frequency: Daily PRN Code Status: Full Code Therapies Weight Bearing: Weight bearing as tolerated Extremity Affected:: Bilateral Lower Physical Therapy: Eval and Treat Occupational Therapy: Eval and Treat Speech Therapy: Eval and Treat Problem/Diagnosis (1) Second degree AV block, Mobitz type II: Status: Acute Code(s): I44.1 - Atrioventricular block, second degree (2) HTN (hypertension): Status: Chronic Code(s): I10 - Essential (primary) hypertension (3) History of thoracic aortic aneurysm repair: Status: Acute Code(s): Z98.890 - Other specified postprocedural states; Z86.79 - Personal history of other diseases of the circulatory system (4) History of pulmonary embolism: Status: Acute Code(s): Z86.711 - Personal history of pulmonary embolism (5) Valvular heart disease: Status: Acute Code(s): I38 - Endocarditis, valve unspecified Comment: s/p aortic valve repair 2006. (6) Anemia: Status: Acute Code(s): D64.9 - Anemia, unspecified Plan This is a 77-year-old gentleman being admitted from [facility] for multiple episodes of syncope and upper GI bleed 1. Acute blood loss anemia and hypotension due to upper GI bleed: Patient is being admitted in ICU. His baseline hemoglobin is 13.1 which dropped to 10.7. BP was low 108/70 with baseline 143/64. Patient was resuscitated with IV fluid last blood pressure 133/55. 2 units PRBC typed and crossmatched. Keep NPO. Continue IV fluid Ringer lactate. Patient started on IV pantoprazole drip afterbolus and octreotide drip. GI consulted. H&H monitoring. Patient has historyof gastric ulcer in the past when he had EGD in early . Had last colonoscopy less than a year was normal as per the . His medical care is under [facility]. 01/22: Hemoglobin dropped to 8.9. Patient had 2 units of PRBC transfusion and repeat hemoglobin 10.2. Octreotide discontinued as mentioned below. 01/23: Hemoglobin 8.7. Leukocytosis improving. Most likely reactive. Protonix drip changed to 40 mg IV every 12 hourly 01/24: Hemoglobin 9.0. Leukocytosis improving. Platelet count normal. 01/25: Hemoglobin 8.2. Continue PPI. 2 Syncopal episode most likely due to hypotension/GI bleed: As per the nursing staff patient had multiple shorts, brief syncopal episodes with intermittent confusion in between. Patient had echo in June 2022 reported EF 65% moderate concentric LVH. Mild MR. Orthostatic BP when patient is stable 3. Transient A-fib and Mobitz type II, second-degree AV block: Patient is started having irregular heartbeat initially A-fib postmidnight and then about 5AM Mobitz type II AV block. Initial EKG was normal sinus rhythm admission H&P. Second EKG at 9:26 PM shows sinus rhythm with second-degree Mobitz type II blockbut there was 2 dropped heartbeat in EKG. apricot packer shows heart rate slowed down to 48 to 60/min. EKG in the morning about 6 AM today shows sinus rhythm with second- degree Mobitz type II block, RBBB, LAFB bifascicular block. Patient has history of bifascicular block. I talked to the patient's and informed her about the update. Patient has history of ascending aortic aneurysmand had that repaired along with aortic valve in [facility]. His construction project mgr is Dr. Huston in [facility]. I think this is most probably due to start of the octreotide drip as patient was in sinus normal rhythm at time ofadmission. Octreotide discontinued. Instructor [employer] consulted. 2D echo ordered. 01/23: Echo states EF 55 to 60%, normal LV systolic function. Trivial MR. Mild diffuse aortic valve calcification. Normal left atrium. 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 Chandra regarding assessment for pacemaker 01/24: Patient has hypernatremia and hyperchloremia. IV fluid D5W started. Patient is still has AV block, P waves but rhythm is irregular. Twelve-lead EKGordered. Discussed with the construction project mgr. Dr. Ling will talk to Dr. Chandra. 01/25: For now plan is to monitor. No plan for pacemaker as per the construction project mgr. apricot packer shows irregular heartbeat , Mobitz type II. Heart rate in 50s. BP normal. Patient has hypernatremia and hyperchloremia. IV fluid D5W +40 mEq KCl at 100 mL/h. Net positive fluid balance 1160 mill. Discussed with the nursing. 3. Essential hypertension and dyslipidemia-hold antihypertensive medications. Statin when oral is allowed. Blood pressure has recovered to 114/63 but patientstill has weak radial pulse. Carotid pulses good. Hold antihypertensive medications. 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 01/23: Glucose between 150?200. Accu-Chek every 6 hourly with coverage of sliding scale. Patient is NPO. #5 DVT on warfarin with supratherapeutic INR: Patient on warfarin. INR 4.2. Vitamin K 5 mg IV given in ED. 01/23: Repeat INR is 1.4. #6 BPH-patient is on Flomax #7 acute debility, disequilibrium: PT and OT ordered. #8 possible depression versus early dementia: Patient is on antidepressant and Aricept. Will resume once oral is allowed. 01/24: Aricept is likely to cause AV block/conduction disorder therefore will continue to hold. 9. Lactic acidosis mostly due to hypotension and hypoperfusion: Lactic acid hasdecreased. I do not think patient has suspected or confirmed focus of infection. Therefore sepsis or septic shock is ruled out. VTE prophylaxis: Pharmacological prophylaxis contraindicated in view of GI bleed, acute blood loss anemia and supratherapeutic INR. Bilateral SCDs. Living will/advanced directive/end of life care: Patient does have living will or advanced directive. 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 After discussion of benefits/risks procedures involved with full code, DNR CC arrest and DNR CC, the patient and his opted for full code. Patient does want artificial life support including intubation, tube feed, ventilator and/chest compression, central venous catheter, vasopressor and DC shock if needed Clinical Impression(s) from Imaging Studies Brain CT 01/21/23 09:00 IMPRESSION: Chronic involutional changes of the brain. Partial opacification of the right maxillary and right frontal sinus Electronically Signed: Ravindra Sierra MD at 10:43 EDT , Chest X-Ray 01/21/23 09:30 IMPRESSION: No acute abnormality is seen. Echocardiogram 01/22/23 08:24 Interpretation Summary The estimated ejection fraction is 55-60 %. Normal LV systolic function Allergies/Procedures Done in Hospital Allergies propofol Adverse Reaction (Verified 01/21/23 08:23) Other GETS AGGRESSIVE Type of Care/Length of Stay Estimated LOS: Convalescent Care Less Than 30 days Type of Care Needed: Skilled Rehab Potential: Good Prognosis: Good Additional Orders/Day of Discharge Day of Discharge: 01/26/23 Dietary and Speech Recommendations Dietitian Recommendations/Changes: Diet as tolerated to Transitional. May need to consider Renal diet - Low Protein diet based on renal labs as advanced from NPO. RD will continue to monitor. Reassess possible malnutrition as able. Discharge Plan Admission Admit Date/Time: 01/21/23 10:32 Primary Reason for Your Visit: Syncope, Mobitz Type 2 AV block, GI Bleed Attending Provider: Ryan Tinoco Primary Care Provider: Luis Caldera Consulting Providers: Lizzeth Riggs Discharge Orders/Prescriptions Prescriptions: New sucralfate 1 gram Tablet 1 g PO 0700,1100,1600 30 Days Qty: 90 0RF sennosides-docusate sodium [Stool Softener-Stimulant Laxat] 8.6-50 mg Tablet 2 tab PO BID PRN (Reason: Constipation) Qty: 0 0RF pantoprazole 40 mg Tablet,Delayed Release (Dr/Ec) 40 mg PO BID 30 Days Qty: 60 2RF Rx Instructions: 40 mg twice daily for 2 months and then once daily ferrous sulfate 325 mg (65 mg iron) tablet,delayed release (DR/EC) 325 mg PO DAILY Qty: 30 2RF ascorbic acid (vitamin C) 500 mg tablet 500 mg PO BID Qty: 60 2RF Continued atorvastatin 40 MG tablet 40 mg PO QHS tamsulosin 0.4 mg capsule 0.4 mg PO QHS Patient Comments: TAKE 1 CAPSULE BY MOUTH EVERYDAY AT BEDTIME amlodipine 2.5 mg Tablet 2.5 mg PO DAILY 30 Days Qty: 30 0RF acetaminophen 325 mg Tablet 650 mg PO Q4H PRN PRN (Reason: PAIN AND FEVER) Qty: 0 0RF Patient Comments: PRN PER INTERMEDIATE MAR melatonin 3 mg Tablet 3 mg PO QHS PRN PRN (Reason: Insomnia) Qty: 1 0RF Patient Comments: PRN PER INTERMEDIATE MAR. donepezil 10 mg tablet 10 mg PO QHS duloxetine [Cymbalta] 60 mg capsule,delayed release(DR/EC) 60 mg PO DAILY cholecalciferol (vitamin D3) 1,250 mcg (50,000 unit) tablet 1,250 mcg PO MO insulin lispro [Humalog KwikPen Insulin] 100 unit/mL insulin pen See Protocol subcut ACHS Protocol: 6. Sliding Scale Insulin Custom Condition: mg/dl range Dose/Route: Number of Units Condition: 200-250 Dose/Route: 5 Condition: 251-300 Dose/Route: 8 Condition: 301-350 Dose/Route: 12 Condition: >351 Instruction: NOTIFY Protocol Text: Custom Sliding Scale Changed insulin glargine [Lantus Solostar U-100 Insulin] 100 UNITS/ML insulin pen 15 unit subcut DAILY Qty: 15 0RF Held losartan 50 MG tablet 50 mg PO DAILY Hold Instructions: Hold for 1 week until kidney function returns to normal. warfarin [Jantoven] 5 MG tablet 7.5 mg PO SUTUWETHFRSA Hold Instructions: Hold for 5 more days. Patient Comments: blood thinner warfarin 5 mg tablet 10 mg PO MO Hold Instructions: Hold for 5 more days Patient Comments: 10 MG SATURDAY, 7.5 MG ALL OTHER DAYS. PATIENT HAS INR DRAWN BI-WEEKLY. metformin 1,000 mg tablet 1,000 mg PO BID Hold Instructions: Hold for 1 week. Discontinued metoprolol succinate 200 MG tablet 200 mg PO DAILY Patient Comments: HYPERTENSION donepezil [Aricept] 5 mg tablet 5 mg PO QHS Qty: 1 0RF Patient Comments: PER FACILITY ORDER PT IS TO TAKE 5MG FOR 3 WEEKS THEN INCREASE TO 10 MG DAILY. PER SEP PT IS GIVEN BOTH 5 MG AND 10 MG DAILY AT BEDTIME. PER SEP 5 MG LAST DOSE IS ON 01/28/23. Rx Instructions: 5 mg nightly x3 weeks, then increase to 10 mg nightly thereafter Referrals / Follow Up: Luis Caldera MD [Primary Care Provider] - Júnior Chandra MD [Med Staff - Active Staff] - Within 2 Weeks Liu Hackett DO [Med Staff - Active Staff] - Within 1 Month Disposition Disposition (needs filled in before D/C Order can be placed): Shelter Facility (6) Anemia Qualifiers: Anemia type: iron deficiency Iron deficiency anemia type: other iron deficiency Qualified Code(s): D50.8 - Other iron deficiency anemias 01/26/23 1157 <Electronically signed by Ryan Tinoco MD> Cosigner Signature (if applicable): CC: Dr. Luis Caldera MD; Dr. Lizzeth Riggs MD ~ [facility] Work Phone: [phone]) 794-251407-14-2023 Progress note Author Lizzeth Riggs [facility] January 25, 2023 4:08pm Note Date/Time January 25, 2023 1:09 pm [facility] Medical Records Department [address] [place] [address] Progress Note - Cardiology 01/25/23 1308 MR#: [id number] Acct: [id number] Name: RICHARD ROY Rep #:[id number] : 1945 77 From: Rebecca LOZA PA PCP: Dr. Luis Caldera MD Status :ADM IN Location: [place] [id number] Documented by User: DENIA Wilkinson 01/25/23 14:14 Subjective Subjective Patient is still having Intermittent AV block type II. Had EGD yesterday. Patient laying down on the bed. Does not complain of chest pain shortness of breath or acute change. Patient is not very arousable to answer questions today. Objective Data Vital Signs: Vital Signs Temp Pulse Resp BP Pulse Ox O2 Del Method O2 Flow Rate 98.2 F 52 L 18 128/42 H 94 Room Air 93 01/25/23 01:53 01/25/23 01:53 01/25/23 01:53 01/25/23 01:53 01/25/23 01:53 01/25/23 04:00 01/24/23 16:00 Oxygen Flow Rate (L/min) 93 Oxygen Delivery Method Room Air Weight: 213 lb 2.992 oz Body Mass Index (BMI) 28.2 Intake & Output: Intake and Output for Last 24 Hours 01/23/23 01/24/23 01/25/23 23:59 23:59 23:59 Intake Total 564.75 / 564.75 2205.42 / 2205.42 364.17 / 364.17 Output Total 1475 / 1825 1075 / 1175 350 / 350 Balance -910.25 / -1260.25 1130.42 / 1030.42 14.17 / 14.17 Lab / Micro Data 01/25/23 05:31 01/25/23 05:31 Labs: Laboratory Results - last 24 hr 01/22/23 11:32: Total Protein (PEP) 4.4 L, Globulin 1.9 L, Aldolase 1.5 L, IgG Total 417 L, IgG1 237 L, IgG2 115 L, IgG3 20, IgG4 8, IgA 194, IgM 15, IgE 399, Immunofixation Screen Comment, Albumin (DAVID) 2.5 L, Albumin/Globulin (DAVID) 1.4, Dwhld-1-Fvotanwbl DAVID 0.2, Tucgp-6-Tfkwdvoqm DAVID 0.6, Beta-Globulins (DAVID) 0.7, Gamma Globulins (DAVID) 0.3 L, DAVID Comments Comment, c-ANCA Antibody <1:20, Atypical p- ANCA <1:20, p-ANCA Antibody <1:20 01/24/23 18:16: POC Glucose 208 H 01/25/23 01:50: POC Glucose 174 H 01/25/23 05:31: WBC 11.5 H, RBC 2.91 L, Hgb 8.2 L, Hct 25.4 L, MCV 87.3, MCH 28.2, MCHC 32.3, RDW Std Deviation 50.3 H, RDW Coeff of Nathaniel 16.1 H, Plt Count 209, MPV 10.2, Immature Gran % (Auto) 1.700 H, Neut % (Auto) 83.4 H, Lymph % (Auto) 5.9 L, [place] % (Auto) 7.8, Eos % (Auto) 1.0, Baso % (Auto) 0.2, Absolute Neuts (auto) 9.6 H, Absolute Lymphs (auto) 0.68 L, Nucleated RBC % 0.3, PT 19.1 H, INR 1.6, Sodium 149 H, Potassium 3.5, Chloride 120 H, Carbon Dioxide 24.0, Anion Gap 5, BUN 37 H, Creatinine 1.28, Estim Creat Clear Calc 56.35, Est GFR (MDRD) Af Amer 70, Est GFR (MDRD) Non-Af 58 L, BUN/Creatinine Ratio 28.9 H, Glucose 193 H, Calcium 8.8, Phosphorus 2.0 L, Magnesium 1.9 01/25/23 05:45: POC Glucose 178 H 01/25/23 12:17: POC Glucose 175 H Rhythm Strip Rhythm Strip: Sinus Rhythm Rate: 90 Ectopy: PAC(s) Cardiology Labs/Tests 01/25/23 05:31: WBC 11.5 H, RBC 2.91 L, Hgb 8.2 L, Hct 25.4 L, MCV 87.3, MCH 28.2, MCHC 32.3, Plt Count 209, MPV 10.2, Immature Gran % (Auto) 1.700 H, Neut % (Auto) 83.4 H, Lymph % (Auto) 5.9 L, [place] % (Auto) 7.8, Eos % (Auto) 1.0, Baso %(Auto) 0.2, Absolute Neuts (auto) 9.6 H, Nucleated RBC % 0.3, PT 19.1 H, INR 1.6, Sodium 149 H, Potassium 3.5, Chloride 120 H, Carbon Dioxide 24.0, Anion Gap5, BUN 37 H, Creatinine 1.28, Est GFR (MDRD) Af Amer 70, Est GFR (MDRD) Non-Af 58 L, BUN/Creatinine Ratio 28.9 H, Glucose 193 H, Calcium 8.8, Phosphorus 2.0 L,Magnesium 1.9 Physical Exam Narrative Patient lethargic, did discuss with nursing staff. Patient is having intermittent AV block type II. Const no apparent distress and average body habitus Orientation / Consciousness: lethargic HEENT normocephalic, head/scalp atraumatic, hearing grossly normal bilaterally, external ears normal, external nose normal and moist oral mucous membranes Eyes PERRL, EOMs intact bilaterally, conjunctivae normal and no scleral icterus Neck no lymphadenopathy, supple and no JVD Resp normal respiratory effort Resp Narrative: diminished t/o Cardio Rate: bradycardia Rhythm: abnormal rhythm regularly irregular GI normal to inspection, nondistended, normoactive bowel sounds, soft to palpation,non-tender and non-distended Extremity normal to inspection, normal capillary refill, no clubbing, cyanosis or edema and no pedal edema Neuro oriented x3, CN's II-XII intact bilaterally, moves all extremities and no focal motor deficits Psych cooperative and affect normal Assessment & Plan Assessment/Plan (1) Second degree AV block, Mobitz type II: (2) HTN (hypertension): (3) History of thoracic aortic aneurysm repair: (4) History of pulmonary embolism: (5) Valvular heart disease: (6) Anemia: QUALIFIERS: Anemia type: iron deficiency Iron deficiency anemia type: other iron deficiency Qualified Code(s): D50.8 - Other iron deficiency anemias PLAN: Plan Patient is continue to have intermittent AV block type II. It was felt that his second-degree AV block type II is likely medication related. His IV medication has been discontinued. He is no longer on metoprolol. Did review case with Dr. Riggs and Dr. Chandra. Will continue to monitor while patient is in the hospital with telemetry. Did speak with POC, at this time she would like to discuss with family in regards to pursuing a PPM if his type II block continues. At discharge would plan on obtaining 48-hour Holter monitor In regards to his AAA and Aortic valve repair, this appears stable. He did undergo an EGD yesterday. He is being followed by GI. Patient has been stable hemodynamically. Charges/Coding Visit Charges Inpatient E&M: 21424 Subs Hosp L2 Documented by User: Dr. Lizzeth Riggs MD 01/25/23 16:08 Lab / Micro Data 01/25/23 05:31 01/25/23 05:31 Assessment & Plan Assessment/Plan (1) Second degree AV block, Mobitz type II: (2) HTN (hypertension): (3) History of thoracic aortic aneurysm repair: (4) History of pulmonary embolism: (5) Valvular heart disease: (6) Anemia: QUALIFIERS: Anemia type: iron deficiency Iron deficiency anemia type: other iron deficiency Qualified Code(s): D50.8 - Other iron deficiency anemias PLAN: Plan Patient is continue to have intermittent AV block type II. It was felt that his second-degree AV block type II is likely medication related. His IV medication has been discontinued. He is no longer on metoprolol. Did review case with Dr. Riggs and Dr. Chandra. Will continue to monitor while patient is in the hospital with telemetry. Did speak with POC, at this time she would like to discuss with family in regards to pursuing a PPM if his type II block continues. At discharge would plan on obtaining 48-hour Holter monitor In regards to his AAA and Aortic valve repair, this appears stable. He did undergo an EGD yesterday. He is being followed by GI. Patient has been stable hemodynamically. Concur with the cardiac care plan as per midlevel notes and documentation Patient to follow-up as construction project mgr Dr. Chandra with the results of the event monitor. To evaluate for permanent pacemaker implant. 01/25/23 1414 <Electronically signed by Rebecca LOZA> Cosigner Signature (if applicable): 01/25/23 1608 <Electronically signed by Lizzeth Riggs MD> CC: ~ Signed [facility] Work Phone: 1(637) 564-522607-14-2023 Progress note Author Ryan Tinoco [facility] January 25, 2023 2:08pm Note Date/Time January 25, 2023 9:30 am [facility] Medical Records Department [address] [place] [address] Progress Note - Hospitalist 01/25/23 0928 MR#: [id number] Acct: [id number] Name: RICHARD ROY Rep #:[id number] : 1945 77 From: Ryan Delgado PCP: Dr. Luis Caldera MD Status :ADM IN Location: [place] [address] Reason for Visit Reason for Visit: Diagnoses Other iron deficiency anemias (01/21/23) Acute posthemorrhagic anemia (01/21/23) Anemia, unspecified (01/21/23) Hemorrhagic disorder due to extrinsic circulating anticoagulants (01/21/23) Essential (primary) hypertension (01/21/23) Endocarditis, valve unspecified (01/21/23) Atrioventricular block, second degree (01/21/23) Gastrointestinal hemorrhage, unspecified (01/21/23) Adverse effect of anticoagulants, initial encounter (01/21/23) Personal history of pulmonary embolism (01/21/23) Personal history of other diseases of the circulatory system (01/21/23) Other specified postprocedural states (01/21/23) Subjective Subjective Follow-up for intermittent AV block, Mobitz type II. Hypernatremia and hyperchloremia. Objective Data Objective Data Vital Signs: Vital Signs Temp Pulse Resp BP Pulse Ox O2 Del Method O2 Flow Rate 98.2 F 52 L 18 128/42 H 94 Room Air 93 01/25/23 01:53 01/25/23 01:53 01/25/23 01:53 01/25/23 01:53 01/25/23 01:53 01/25/23 04:00 01/24/23 16:00 Oxygen Flow Rate (L/min) 93 Oxygen Delivery Method Room Air Weight: 213 lb 2.992 oz Body Mass Index (BMI) 28.2 Intake & Output: Intake and Output for Last 24 Hours 01/23/23 01/24/23 01/25/23 23:59 23:59 23:59 Intake Total 564.75 / 564.75 2205.42 / 2205.42 364.17 / 364.17 Output Total 1475 / 1825 1075 / 1175 350 / 350 Balance -910.25 / -1260.25 1130.42 / 1030.42 14. / 14.17 Lab / Micro Data 01/25/23 05:31 01/25/23 05:31 Labs: Laboratory Results - last 24 hr 01/24/23 11:43: POC Glucose 199 H 01/24/23 18:16: POC Glucose 208 H 01/25/23 01:50: POC Glucose 174 H 01/25/23 05:31: WBC 11.5 H, RBC 2.91 L, Hgb 8.2 L, Hct 25.4 L, MCV 87.3, MCH 28.2, MCHC 32.3, RDW Std Deviation 50.3 H, RDW Coeff of Nathaniel 16.1 H, Plt Count 209, MPV 10.2, Immature Gran % (Auto) 1.700 H, Neut % (Auto) 83.4 H, Lymph % (Auto) 5.9 L, [place] % (Auto) 7.8, Eos % (Auto) 1.0, Baso % (Auto) 0.2, Absolute Neuts (auto) 9.6 H, Absolute Lymphs (auto) 0.68 L, Nucleated RBC % 0.3, PT 19.1 H, INR 1.6, Sodium 149 H, Potassium 3.5, Chloride 120 H, Carbon Dioxide 24.0, Anion Gap 5, BUN 37 H, Creatinine 1.28, Estim Creat Clear Calc 56.35, Est GFR (MDRD) Af Amer 70, Est GFR (MDRD) Non-Af 58 L, BUN/Creatinine Ratio 28.9 H, Glucose 193 H, Calcium 8.8, Phosphorus 2.0 L, Magnesium 1.9 01/25/23 05:45: POC Glucose 178 H Micro: Microbiology 01/21/23 09:15 Stool Stool Occult Blood (KLAUS) - Final Occult Blood Positive Rhythm Strip Rhythm Strip: Sinus Rhythm Rate: 90 Ectopy: PAC(s) Physical Exam Narrative Seen and examined. Discussed with the nursing staff. Patient is still having Mobitz type II AV block, but is not following the pattern of 3:1 although it is less frequent. Heart rate in 50s.. Discussed with the construction project mgr. No chest pain or tightness. Physical exam General: Awake more alert oriented x3, Cooperative. BMI 28.9 KG per square meter. HEENT: Atraumatic, PERRLA, EOMI, Normocephalic Oral: Oral mucosa moist. No Gingival or Mucosal Lesions/ Ulcerations Neck: Supple, No JVD, Negative Carotid Bruits Lungs: Air entry diminished in bilateral lung bases. No crepitation/rhonchi Cardiovascular: Irregular sinusrhythm, P wave present. Bradycardia. Normal S1,Normal S2, pansystolic murmur over cardiac apex. Abdomen: Bowel Sounds Present, Soft, Non Tender, Non-Distended : No renal angle tenderness. No suprapubic tenderness. Extremities: No edema, Capillary Refill Less than 3 Seconds Skin: No rashes, No breakdown Musculoskeletal: Muscle strength 4+/5 at knee and hip joints. ROM restricted. No Tenderness to Palpation of Joints or Extremities Neurological: Cranial nerves II-XII grossly intact, DTR 2+/4 and Symmetrical, Neuro grossly intact Psych/Mental Status: Flat affect. Amnesia/cognitive deficit. Assessment & Plan Assessment/Plan (1) Upper gastrointestinal bleeding: (2) ABLA (acute blood loss anemia): PLAN: Plan This is a 77-year-old gentleman being admitted from [facility] for multiple episodes of syncope and upper GI bleed 1. Acute blood loss anemia and hypotension due to upper GI bleed: Patient is being admitted in ICU. His baseline hemoglobin is 13.1 which dropped to 10.7. BP was low 108/70 with baseline 143/64. Patient was resuscitated with IV fluid last blood pressure 133/55. 2 units PRBC typed and crossmatched. Keep NPO. Continue IV fluid Ringer lactate. Patient started on IV pantoprazole drip afterbolus and octreotide drip. GI consulted. H&H monitoring. Patient has historyof gastric ulcer in the past when he had EGD in early . Had last colonoscopy less than a year was normal as per the . His medical care is under [facility]. 01/22: Hemoglobin dropped to 8.9. Patient had 2 units of PRBC transfusion and repeat hemoglobin 10.2. Octreotide discontinued as mentioned below. 01/23: Hemoglobin 8.7. Leukocytosis improving. Most likely reactive. Protonix drip changed to 40 mg IV every 12 hourly 01/24: Hemoglobin 9.0. Leukocytosis improving. Platelet count normal. 01/25: Hemoglobin 8.2. Continue PPI. Laboratory Results 01/22/23 11:32: Total Protein (PEP) 4.4 L, Globulin 1.9 L, Aldolase 1.5 L, IgG Total 417 L, IgG1 237 L, IgG2 115 L, IgG3 20, IgG4 8, IgA 194, IgM 15, IgE 399, Immunofixation Screen Comment, Albumin (DAVID) 2.5 L, Albumin/Globulin (DAVID) 1.4, Kqbfw-1-Ufeipdipz DAVID 0.2, Scjxo-3-Wuctirksa DAVID 0.6, Beta-Globulins (DAVID) 0.7, Gamma Globulins (DAVID) 0.3 L, ADVID Comments Comment, c-ANCA Antibody <1:20, Atypical p- ANCA <1:20, p-ANCA Antibody <1:20 01/24/23 18:16: POC Glucose 208 H 01/25/23 01:50: POC Glucose 174 H 01/25/23 05:31: WBC 11.5 H, RBC 2.91 L, Hgb 8.2 L, Hct 25.4 L, MCV 87.3, MCH 28.2, MCHC 32.3, RDW Std Deviation 50.3 H, RDW Coeff of Nathaniel 16.1 H, Plt Count 209, MPV 10.2, Immature Gran % (Auto) 1.700 H, Neut % (Auto) 83.4 H, Lymph % (Auto) 5.9 L, [place] % (Auto) 7.8, Eos % (Auto) 1.0, Baso % (Auto) 0.2, Absolute Neuts (auto) 9.6 H, Absolute Lymphs (auto) 0.68 L, Nucleated RBC % 0.3, PT 19.1 H, INR 1.6, Sodium 149 H, Potassium 3.5, Chloride 120 H, Carbon Dioxide 24.0, Anion Gap 5, BUN 37 H, Creatinine 1.28, Estim Creat Clear Calc 56.35, Est GFR (MDRD) Af Amer 70, Est GFR (MDRD) Non-Af 58 L, BUN/Creatinine Ratio 28.9 H, Glucose 193 H, Calcium 8.8, Phosphorus 2.0 L, Magnesium 1.9 01/25/23 05:45: POC Glucose 178 H 01/25/23 12:17: POC Glucose 175 H 2 Syncopal episode most likely due to hypotension/GI bleed: As per the nursing staff patient had multiple shorts, brief syncopal episodes with intermittent confusion in between. Patient had echo in June 2022 reported EF 65% moderate concentric LVH. Mild MR. Orthostatic BP when patient is stable 3. Transient A-fib and Mobitz type II, second-degree AV block: Patient is started having irregular heartbeat initially A-fib postmidnight and then about 5AM Mobitz type II AV block. Initial EKG was normal sinus rhythm admission H&P. Second EKG at 9:26 PM shows sinus rhythm with second-degree Mobitz type II blockbut there was 2 dropped heartbeat in EKG. apricot packer shows heart rate slowed down to 48 to 60/min. EKG in the morning about 6 AM today shows sinus rhythm with second- degree Mobitz type II block, RBBB, LAFB bifascicular block. Patient has history of bifascicular block. I talked to the patient's and informed her about the update. Patient has history of ascending aortic aneurysmand had that repaired along with aortic valve in [facility]. His construction project mgr is Dr. Huston in [facility]. I think this is most probably due to start of the octreotide drip as patient was in sinus normal rhythm at time ofadmission. Octreotide discontinued. Instructor [employer] consulted. 2D echo ordered. 01/23: Echo states EF 55 to 60%, normal LV systolic function. Trivial MR. Mild diffuse aortic valve calcification. Normal left atrium. 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 Chandra regarding assessment for pacemaker 01/24: Patient has hypernatremia and hyperchloremia. IV fluid D5W started. Patient is still has AV block, P waves but rhythm is irregular. Twelve-lead EKGordered. Discussed with the construction project mgr. Dr. Ling will talk to Dr. Chandra. 01/25: For now plan is to monitor. No plan for pacemaker as per the construction project mgr. apricot packer shows irregular heartbeat , Mobitz type II. Heart rate in 50s. BP normal. Patient has hypernatremia and hyperchloremia. IV fluid D5W +40 mEq KCl at 100 mL/h. Net positive fluid balance 1160 mill. Discussed with the nursing. 3. Essential hypertension and dyslipidemia-hold antihypertensive medications. Statin when oral is allowed. Blood pressure has recovered to 114/63 but patientstill has weak radial pulse. Carotid pulses good. Hold antihypertensive medications. 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 01/23: Glucose between 150?200. Accu-Chek every 6 hourly with coverage of sliding scale. Patient is NPO. #5 DVT on warfarin with supratherapeutic INR: Patient on warfarin. INR 4.2. Vitamin K 5 mg IV given in ED. 01/23: Repeat INR is 1.4. #6 BPH-patient is on Flomax #7 acute debility, disequilibrium: PT and OT ordered. #8 possible depression versus early dementia: Patient is on antidepressant and Aricept. Will resume once oral is allowed. 01/24: Aricept is likely to cause AV block/conduction disorder therefore will continue to hold. 9. Lactic acidosis mostly due to hypotension and hypoperfusion: Lactic acid hasdecreased. I do not think patient has suspected or confirmed focus of infection. Therefore sepsis or septic shock is ruled out. VTE prophylaxis: Pharmacological prophylaxis contraindicated in view of GI bleed, acute blood loss anemia and supratherapeutic INR. Bilateral SCDs. Living will/advanced directive/end of life care: Patient does have living will or advanced directive. 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 After discussion of benefits/risks procedures involved with full code, DNR CC arrest and DNR CC, the patient and his opted for full code. Patient does want artificial life support including intubation, tube feed, ventilator and/chest compression, central venous catheter, vasopressor and DC shock if needed Clinical Impression(s) from Imaging Studies Brain CT 01/21/23 09:00 IMPRESSION: Chronic involutional changes of the brain. Partial opacification of the right maxillary and right frontal sinus Electronically Signed: Ravindra Sierra MD at 10:43 EDT , Chest X-Ray 01/21/23 09:30 IMPRESSION: No acute abnormality is seen. Echocardiogram 01/22/23 08:24 Interpretation Summary The estimated ejection fraction is 55-60 %. Normal LV systolic function Charges/Coding Visit Charges Inpatient E&M: 99177 Subs Hosp L2 01/25/23 1408 <Electronically signed by Ryan Tinoco MD> Cosigner Signature (if applicable): CC: ~ Signed [facility] Work Phone: [phone]) 348-487507-13-2023 Progress note Author Karen Aly [facility] January 24, 2023 8:23pm Note Date/Time January 24, 2023 8:23 pm [facility] Medical Records Department [address] [place] [address] Progress Note - Hospitalist 01/24/232021 MR#: [id number] Acct: [id number] Name: RICHARD ROY Rep #:[id number] : 1945 77 From: Karen Aly MD PCP: Dr. Luis Caldera MD Status :ADM IN Location: [place] [id number] Hospitalist Note Recurrent type II AV block which from notes has been intermittent. He is asymptomatic. Cardiology following and made aware also by RN that it is recurrent. 01/24/232022 <Electronically signed by Karen Aly MD> Cosigner Signature (if applicable): CC: ~ Signed [facility] Work Phone: [phone]) 691-536507-13-2023 Progress note Author Liu Hackett [facility] January 24, 2023 5:07pm Note Date/Time January 24, 2023 5:07 pm [facility] Medical Records Department [address] [place] [address] Progress Note - GI 01/24/23 1703 MR#: [id number] Acct: [id number] Name: RICHARD ROY Rep #:[id number] : 1945 77 From: Liu Hackett DO PCP: Dr. Luis Caldera MD Status :ADM IN Location: [place] [address] Subjective Subjective Patient laying in bed with at at the bedside. He underwent an upper endoscopy yesterday. He was discovered to have severe ulcerations likely secondary to medications in his duodenum. There was some active bleeding and was treated endoscopically. Objective Data Objective Data Vital Signs: Vital Signs Temp Pulse Resp BP Pulse Ox O2 Del Method O2 Flow Rate 98.2 F 58 L 16 131/57 H 94 Room Air 93 01/24/23 16:00 01/24/23 16:00 01/24/23 16:00 01/24/23 16:00 01/24/23 10:00 01/24/23 16:00 01/24/23 16:00 Oxygen Flow Rate (L/min) 93 Oxygen Delivery Method Room Air Weight: 215 lb 2.738 oz Body Mass Index (BMI) 28.5 Intake & Output: Intake and Output for Last 24 Hours 01/22/23 01/23/23 01/24/23 23:59 23:59 23:59 Intake Total 2233.87 / 2233.87 564.75 / 564.75 1109.17 / 1109.17 Output Total 3030 / 3030 1475 / 1825 975 / 975 Balance -796.13 / -796.13 -910.25 / -1260.25 134.17 / 134.17 Lab / Micro Data 01/24/23 04:15 01/24/23 04:15 Labs: Laboratory Results - last 24 hr 01/23/23 17:21: POC Glucose 201 H 01/23/23 23:44: POC Glucose 179 H 01/24/23 04:15: WBC 13.1 H, RBC 3.15 L, Hgb 9.0 L, Hct 27.4 L, MCV 87.0, MCH 28.6, MCHC 32.8, RDW Std Deviation 49.8 H, RDW Coeff of Nathaniel 16.1 H, Plt Count 183, MPV 10.1, Immature Gran % (Auto) 1.500 H, Neut % (Auto) 82.8 H, Lymph % (Auto) 5.3 L, [place] % (Auto) 8.9, Eos % (Auto) 1.3, Baso % (Auto) 0.2, Absolute Neuts (auto) 10.9 H, Absolute Lymphs (auto) 0.70 L, Nucleated RBC % 0.3, PT 16.3H, INR 1.3, Sodium 149 H, Potassium 4.0, Chloride 121 H, Carbon Dioxide 26.0, Anion Gap 2 L, BUN 51 H, Creatinine 1.44 H, Estim Creat Clear Calc 50.09, Est GFR (MDRD) Af Amer 62, Est GFR (MDRD) Non-Af 51 L, BUN/Creatinine Ratio 35.4 H, Glucose 193 H, Calcium 8.7, Phosphorus 2.4 L, Magnesium 1.9 01/24/23 11:43: POC Glucose 199 H Micro: Microbiology 01/21/23 09:15 Stool Stool Occult Blood (KLAUS) - Final Occult Blood Positive Rhythm Strip Rhythm Strip: Sinus Rhythm Rate: 90 Ectopy: PAC(s) Physical Exam Narrative Patient laying in bed. He does answer questions but is very sleepy. Const no apparent distress and average body habitus Orientation / Consciousness: lethargic HEENT normocephalic, head/scalp atraumatic, hearing grossly normal bilaterally, external ears normal, external nose normal and moist oral mucous membranes Eyes PERRL, EOMs intact bilaterally, conjunctivae normal and no scleral icterus Neck no lymphadenopathy, supple and no JVD Resp normal respiratory effort Resp Narrative: diminished t/o Cardio Rate: bradycardia Rhythm: abnormal rhythm regularly irregular GI normal to inspection, nondistended, normoactive bowel sounds, soft to palpation,non-tender and non-distended Extremity normal to inspection, normal capillary refill, no clubbing, cyanosis or edema and no pedal edema Neuro oriented x3, CN's II-XII intact bilaterally, moves all extremities and no focal motor deficits Psych cooperative and affect normal Assessment & Plan Assessment/Plan (1) Anemia: QUALIFIERS: Anemia type: iron deficiency Iron deficiency anemia type: other iron deficiency Qualified Code(s): D50.8 - Other iron deficiency anemias (2) Warfarin-induced coagulopathy: (3) ABLA (acute blood loss anemia): PLAN: Plan 77-year-old with past medical history of PE, DVT presents with worsening shortness of breath and fatigue and discovered to have a significant anemia. Stools were checked for blood and neuro positive. He underwent an upper endoscopy after his INR was corrected and was discovered to have severe ulcerations of his duodenum. Biopsies were taken in the stomach for H. pylori and biopsies also were taken. Ulcerations were treated endoscopically. His hemoglobin seems to be stable. Recommendation: PPI can be switched to Protonix 40 mg p.o. every 12 hours. He will need sulcralfate 1 g p.o. 3 times a day for approximately 8 to 12 weeks. He can take the Protonix for 12 weeks. He will need repeat upper endoscopy in approximately 8 to 12 weeks to ensure healing. Charges/Coding Visit Charges Inpatient E&M: 67961 Subs Hosp L3 01/24/23 1707 <Electronically signed by Liu Friend DO> Cosigner Signature (if applicable): CC: ~ Signed [facility] Work Phone: [phone]) [phone] Progress note [facility] January 24, 2023 4:25pm Note Date/Time January 24, 2023 1:41 pm [facility] Medical Records Department [address] [place] [address] Progress Note - Cardiology 01/24/23 1338 MR#: [id number] Acct: [id number] Name: RICHARD ROY Rep #:[id number] : 1945 77 From: Rebecca LOZA PCP: Dr. Luis Caldera MD Status :[facility] Documented by User: DENIA Wilkinson 01/24/23 13:45 Subjective Subjective Patient is still having Intermittent AV block type II. Had EGD yesterday. Patient laying down on the bed. Does not complain of chest pain shortness of breath or acute change. Patient is not very arousable to answer questions today. Objective Data Vital Signs: Vital Signs Temp Pulse Resp BP Pulse Ox O2 Del Method O2 Flow Rate 98.2 F 64 19 H 127/45 H 96 Room Air 2 01/24/23 04:00 01/24/23 04:00 01/24/23 04:00 01/24/23 04:00 01/24/23 07:20 01/24/23 08:20 01/21/23 15:00 Oxygen Flow Rate (L/min) 2 Oxygen Delivery Method Room Air Weight: 215 lb 2.738 oz Body Mass Index (BMI) 28.5 Intake & Output: Intake and Output for Last 24 Hours 01/22/23 01/23/23 01/24/23 23:59 23:59 23:59 Intake Total 2233.87 / 2233.87 564.75 / 564.75 1109.17 / 1109.17 Output Total 3030 / 3030 1475 / 1825 975 / 975 Balance -796.13 / -796.13 -910.25 / -1260.25 134.17 / 134.17 Lab / Micro Data 01/24/23 04:15 01/24/23 04:15 Labs: Laboratory Results - last 24 hr 01/23/23 17:21: POC Glucose 201 H 01/23/23 23:44: POC Glucose 179 H 01/24/23 04:15: WBC 13.1 H, RBC 3.15 L, Hgb 9.0 L, Hct 27.4 L, MCV 87.0, MCH 28.6, MCHC 32.8, RDW Std Deviation 49.8 H, RDW Coeff of Nathaniel 16.1 H, Plt Count 183, MPV 10.1, Immature Gran % (Auto) 1.500 H, Neut % (Auto) 82.8 H, Lymph % (Auto) 5.3 L, [place] % (Auto) 8.9, Eos % (Auto) 1.3, Baso % (Auto) 0.2, Absolute Neuts (auto) 10.9 H, Absolute Lymphs (auto) 0.70 L, Nucleated RBC % 0.3, PT 16.3H, INR 1.3, Sodium 149 H, Potassium 4.0, Chloride 121 H, Carbon Dioxide 26.0, Anion Gap 2 L, BUN 51 H, Creatinine 1.44 H, Estim Creat Clear Calc 50.09, Est GFR (MDRD) Af Amer 62, Est GFR (MDRD) Non-Af 51 L, BUN/Creatinine Ratio 35.4 H, Glucose 193 H, Calcium 8.7, Phosphorus 2.4 L, Magnesium 1.9 01/24/23 11:43: POC Glucose 199 H Rhythm Strip Rhythm Strip: Sinus Rhythm Rate: 90 Ectopy: PAC(s) Cardiology Labs/Tests 01/24/23 04:15: WBC 13.1 H, RBC 3.15 L, Hgb 9.0 L, Hct 27.4 L, MCV 87.0, MCH 28.6, MCHC 32.8, Plt Count 183, MPV 10.1, Immature Gran % (Auto) 1.500 H, Neut %(Auto) 82.8 H, Lymph % (Auto) 5.3 L, [place] % (Auto) 8.9, Eos % (Auto) 1.3, Baso %(Auto) 0.2, Absolute Neuts (auto) 10.9 H, Nucleated RBC % 0.3, PT 16.3 H, INR 1.3, Sodium 149 H, Potassium 4.0, Chloride 121 H, Carbon Dioxide 26.0, Anion Gap2 L, BUN 51 H, Creatinine 1.44 H, Est GFR (MDRD) Af Amer 62, Est GFR (MDRD) Non-Af 51 L, BUN/Creatinine Ratio 35.4 H, Glucose 193 H, Calcium 8.7, Phosphorus 2.4L, Magnesium 1.9 Physical Exam Narrative Patient lethargic, did discuss with nursing staff. Patient is having intermittent AV block type II. Const no apparent distress and average body habitus Orientation / Consciousness: lethargic HEENT normocephalic, head/scalp atraumatic, hearing grossly normal bilaterally, external ears normal, external nose normal and moist oral mucous membranes Eyes PERRL, EOMs intact bilaterally, conjunctivae normal and no scleral icterus Neck no lymphadenopathy, supple and no JVD Resp normal respiratory effort Resp Narrative: diminished t/o Cardio Rate: bradycardia Rhythm: abnormal rhythm regularly irregular GI normal to inspection, nondistended, normoactive bowel sounds, soft to palpation,non-tender and non-distended Extremity normal to inspection, normal capillary refill, no clubbing, cyanosis or edema and no pedal edema Neuro oriented x3, CN's II-XII intact bilaterally, moves all extremities and no focal motor deficits Psych cooperative and affect normal Assessment & Plan Assessment/Plan (1) Second degree AV block, Mobitz type II: (2) HTN (hypertension): (3) History of thoracic aortic aneurysm repair: (4) History of pulmonary embolism: (5) Valvular heart disease: (6) Anemia: PLAN: Plan Patient is continue to have intermittent AV block type II. It was felt that his second-degree AV block type II is likely medication related. His IV medication has been discontinued. He is no longer on metoprolol. Did review case with Dr. Mao and Dr. Chandra. Did like to continue to monitor while patient is in the hospital with telemetry. Did leave a message with to discuss options and rhythms. At discharge would plan on obtaining a 14-day event monitor with patient. In regards to his AAA and Aortic valve repair, this appears stable. He did undergo an EGD yesterday. He is being followed by GI. Charges/Coding Visit Charges Inpatient E&M: 28780 Subs Hosp L2 Documented by User: Dr. Lizzeth Riggs MD 01/24/23 16:25 Lab / Micro Data 01/24/23 04:15 01/24/23 04:15 Assessment & Plan Assessment/Plan (1) Second degree AV block, Mobitz type II: (2) HTN (hypertension): (3) History of thoracic aortic aneurysm repair: (4) History of pulmonary embolism: (5) Valvular heart disease: (6) Anemia: PLAN: Plan Patient is continue to have intermittent AV block type II. It was felt that his second-degree AV block type II is likely medication related. His IV medication has been discontinued. He is no longer on metoprolol. Did review case with Dr. Mao and Dr. Chandra. Did like to continue to monitor while patient is in the hospital with telemetry. Did leave a message with to discuss options and rhythms. At discharge would plan on obtaining 48-hour Holter monitor In regards to his AAA and Aortic valve repair, this appears stable. He did undergo an EGD yesterday. He is being followed by GI. Patient will be monitored for 48 hours Holter monitor and will be followed by Dr. Chandra Patient has been stable hemodynamically. 01/24/23 1345 <Electronically signed by Rebecca LOZA> Cosigner Signature (if applicable): 01/24/23 1625 <Electronically signed by Lizzeth Riggs MD> CC: ~ Signed [facility] Work Phone: [phone]) [phone] Miscellaneous Notes* Telephone Encounter - Tamika Grijalva LPN - 01/24/2023 3:55 PM EDT Phoned patient's and reviewed provider's message with her. She voiced understanding. * Telephone Encounter - Abdulaziz Caldera MD - 01/24/2023 2:36 PM EDT I am sorry to hear he is not doing well. Unfortunately, while he is in the hospital he is under thecare of the hospitalist. I would let them know about depression symptoms so they can talk to you about medication options for this. * Telephone Encounter - Vannessa Jorge RN - 01/24/2023 2:08 PM EDT Patient's calling to say patient was at [facility] for rehabilitation after his hospitalization @ [facility] for confusion on 01/04. He was sent by squad to [facility] from [facility] on 01/21 due to episode of decreased responsiveness and black tarry stool. He had an EGD yesterday and wifesays they found multiple ulcers at head of [...] post hospital stay but it won't be Gerry Watsonbreonna. Vannessa Jorge, RN documented [facility] Progress note Author Ryan Tinoco [facility] January 24, 2023 1:11pm Note Date/Time January 24, 2023 8:05 am [facility] Medical Records Department [address] [place] [address] Progress Note - Hospitalist 01/24/23 0758 MR#: [id number] Acct: [id number] Name: RICHARD ROY Rep #:[id number] : 1945 77 From: Ryan Delgado PCP: Dr. Luis Caldera MD Status :ADM IN Location: ICU CVICU20 2-1 Reason for Visit Reason for Visit: Diagnoses Acute posthemorrhagic anemia (01/21/23) Anemia, unspecified (01/21/23) Essential (primary) hypertension (01/21/23) Endocarditis, valve unspecified (01/21/23) Atrioventricular block, second degree (01/21/23) Gastrointestinal hemorrhage, unspecified (01/21/23) Personal history of pulmonary embolism (01/21/23) Personal history of other diseases of the circulatory system (01/21/23) Other specified postprocedural states (01/21/23) Subjective Subjective Patient is still having AV block. Had EGD yesterday. Patient laying down on the bed. Does not complain of chest pain shortness of breath or acute change. Objective Data Objective Data Vital Signs: Vital Signs Temp Pulse Resp BP Pulse Ox O2 Del Method O2 Flow Rate 98.2 F 64 19 H 127/45 H 96 Room Air 2 01/24/23 04:00 01/24/23 04:00 01/24/23 04:00 01/24/23 04:00 01/24/23 07:20 01/24/23 07:20 01/21/23 15:00 Oxygen Flow Rate (L/min) 2 Oxygen Delivery Method Room Air Weight: 215 lb 2.738 oz Body Mass Index (BMI) 28.5 Intake & Output: Intake and Output for Last 24 Hours 01/22/23 01/23/23 01/24/23 23:59 23:59 23:59 Intake Total 2233.87 / 2233.87 564.75 / 564.75 799.17 / 799.17 Output Total 3030 / 3030 1475 / 1825 725 / 725 Balance -796.13 / -796.13 -910.25 / -1260.25 74.17 / 74.17 Lab / Micro Data 01/24/23 04:15 01/24/23 04:15 Labs: Laboratory Results - last 24 hr 01/22/23 06:45: Diff Path Review Reviewed 01/22/23 11:32: KELSEY-1 Antibody <0.2, SS-A/Ro IgG Antibody < 0.2, SS-B/La IgG Antibody < 0.2, Sm (Martinez) Antibody <0.2, DEAN OF ADMISSIONS Antibody <0.2, Scl-70 Scleroderma Ab <0.2, Double Strand DNA Ab <1, Centromere B Antibody <0.2 01/23/23 09:00: Hgb 8.9 L, Hct 26.5 L 01/23/23 11:01: POC Glucose 191 H 01/23/23 17:21: POC Glucose 201 H 01/23/23 23:44: POC Glucose 179 H 01/24/23 04:15: WBC 13.1 H, RBC 3.15 L, Hgb 9.0 L, Hct 27.4 L, MCV 87.0, MCH 28.6, MCHC 32.8, RDW Std Deviation 49.8 H, RDW Coeff of Nathaniel 16.1 H, Plt Count 183, MPV 10.1, Immature Gran % (Auto) 1.500 H, Neut % (Auto) 82.8 H, Lymph % (Auto) 5.3 L, [place] % (Auto) 8.9, Eos % (Auto) 1.3, Baso % (Auto) 0.2, Absolute Neuts (auto) 10.9 H, Absolute Lymphs (auto) 0.70 L, Nucleated RBC % 0.3, PT 16.3H, INR 1.3, Sodium 149 H, Potassium 4.0, Chloride 121 H, Carbon Dioxide 26.0, Anion Gap 2 L,BUN 51 H, Creatinine 1.44 H, Estim Creat Clear Calc 50.09, Est GFR (MDRD) Af Amer 62, Est GFR (MDRD) Non-Af 51 L, BUN/Creatinine Ratio 35.4 H, Glucose 193 H,Calcium 8.7, Phosphorus 2.4 L, Magnesium 1.9 Micro: Microbiology 01/21/23 09:15 Stool Stool Occult Blood (KLAUS) - Final Occult Blood Positive Rhythm Strip Rhythm Strip: Sinus Rhythm Rate: 90 Ectopy: PAC(s) Physical Exam Narrative Seen and examined. Discussed with the nursing staff. Patient is still having Mobitz type II AV block, but is not following the pattern of 3 history 1. Sometimes it gets irregular but he still has P waves. Twelve-lead EKG ordered.. Discussed with the construction project mgr. No chest pain or tightness. General: Awake but drowsy. Oriented x3, Cooperative. BMI 28.9 KG per square meter. HEENT: Atraumatic, PERRLA, EOMI, Normocephalic Oral: Oral mucosa moist. No Gingival or Mucosal Lesions/ Ulcerations Neck: Supple, No JVD, Negative Carotid Bruits Lungs: Air entry diminished in bilateral lung bases. No crepitation/rhonchi Cardiovascular: Irregular sinusrhythm, P wave present. Bradycardia. Normal S1,Normal S2, pansystolic murmur over cardiac apex. Abdomen: Bowel Sounds Present, Soft, Non Tender, Non-Distended : No renal angle tenderness. No suprapubic tenderness. Extremities: No edema, Capillary Refill Less than 3 Seconds Skin: No rashes, No breakdown Musculoskeletal: Muscle strength 4+/5 at knee and hip joints. ROM restricted. No Tenderness to Palpation of Joints or Extremities Neurological: Cranial nerves II-XII grossly intact, DTR 2+/4 and Symmetrical, Neuro grossly intact Psych/Mental Status: Flat affect. Amnesia/cognitive deficit. Assessment & Plan Assessment/Plan (1) Upper gastrointestinal bleeding: (2) ABLA (acute blood loss anemia): PLAN: Plan This is a 77-year-old gentleman being admitted from [facility] for multiple episodes of syncope and upper GI bleed 1. Acute blood loss anemia and hypotension due to upper GI bleed: Patient is being admitted in ICU. His baseline hemoglobin is 13.1 which dropped to 10.7. BP was low 108/70 with baseline 143/64. Patient was resuscitated with IV fluid last blood pressure 133/55. 2 units PRBC typed and crossmatched. Keep NPO. Continue IV fluid Ringer lactate. Patient started on IV pantoprazole drip afterbolus and octreotide drip. GI consulted. H&H monitoring. Patient has historyof gastric ulcer in the past when he had EGD in early . Had last colonoscopy less than a year was normal as per the . His medical care is under [facility]. 01/22: Hemoglobin dropped to 8.9. Patient had 2 units of PRBC transfusion and repeat hemoglobin 10.2. Octreotide discontinued as mentioned below. 01/23: Hemoglobin 8.7. Leukocytosis improving. Most likely reactive. Protonix drip changed to 40 mg IV every 12 hourly 01/24: Hemoglobin 9.0. Leukocytosis improving. Platelet count normal. 2 Syncopal episode most likely due to hypotension/GI bleed: As per the nursing staff patient had multiple shorts, brief syncopal episodes with intermittent confusion in between. Patient had echo in June 2022 reported EF 65% moderate concentric LVH. Mild MR. Orthostatic BP when patient is stable 01/23: Positive fluid balance 500 mm/h. IV fluid D5W at 50 mill per hour for nutritional purposes. 3. Transient A-fib and Mobitz type II, second-degree AV block: Patient is started having irregular heartbeat initially A-fib postmidnight and then about 5AM Mobitz type II AV block. Initial EKG was normal sinus rhythm admission H&P. Second EKG at 9:26 PM shows sinus rhythm with second-degree Mobitz type II blockbut there was 2 dropped heartbeat in EKG. apricot packer shows heart rate slowed down to 48 to 60/min. EKG in the morning about 6 AM today shows sinus rhythm with second- degree Mobitz type II block, RBBB, LAFB bifascicular block. Patient has history of bifascicular block. I talked to the patient's and informed her about the update. Patient has history of ascending aortic aneurysmand had that repaired along with aortic valve in [facility]. His construction project mgr is Dr. Huston in [facility]. I think this is most probably due to start of the octreotide drip as patient was in sinus normal rhythm at time ofadmission. Octreotide discontinued. [employer] consulted. 2D echo ordered. 01/23: Echo states EF 55 to 60%, normal LV systolic function. Trivial MR. Mild diffuse aortic valve calcification. Normal left atrium. 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 Chandra regarding assessment for pacemaker 01/24: Patient has hypernatremia and hyperchloremia. IV fluid D5W started. Patient is still has AV block, P waves but rhythm is irregular. Twelve-lead EKGordered. Discussed with the construction project mgr. Dr. Ling will talk to Dr. Chandra. 3. Essential hypertension and dyslipidemia-hold antihypertensive medications. Statin when oral is allowed. Blood pressure has recovered to 114/63 but patientstill has weak radial pulse. Carotid pulses good. Hold antihypertensive medications. 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 01/23: Glucose between 150?200. Accu-Chek every 6 hourly with coverage of sliding scale. Patient is NPO. #5 DVT on warfarin with supratherapeutic INR: Patient on warfarin. INR 4.2. Vitamin K 5 mg IV given in ED. 01/23: Repeat INR is 1.4. #6 BPH-patient is on Flomax #7 acute debility, disequilibrium: PT and OT ordered. #8 possible depression versus early dementia: Patient is on antidepressant and Aricept. Will resume once oral is allowed. 01/24: Aricept is likely to cause AV block/conduction disorder therefore will continue to hold. 9. Lactic acidosis mostly due to hypotension and hypoperfusion: Lactic acid hasdecreased. I do not think patient has suspected or confirmed focus of infection. Therefore sepsis or septic shock is ruled out. VTE prophylaxis: Pharmacological prophylaxis contraindicated in view of GI bleed, acute blood loss anemia and supratherapeutic INR. Bilateral SCDs. Living will/advanced directive/end of life care: Patient does have living will or advanced directive. 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 After discussion of benefits/risks procedures involved with full code, DNR CC arrest and DNR CC, the patient and his opted for full code. Patient does want artificial life support including intubation, tube feed, ventilator and/chest compression, central venous catheter, vasopressor and DC shock if needed Clinical Impression(s) from Imaging Studies Brain CT 01/21/23 09:00 IMPRESSION: Chronic involutional changes of the brain. Partial opacification of the right maxillary and right frontal sinus Electronically Signed: Ravindra Sierra MD at 10:43 EDT , Chest X-Ray 01/21/23 09:30 IMPRESSION: No acute abnormality is seen. Echocardiogram 01/22/23 08:24 Interpretation Summary The estimated ejection fraction is 55-60 %. Normal LV systolic function Charges/Coding Visit Charges Inpatient E&M: 98301 Subs Hosp L3 01/24/23 1311 <Electronically signed by Ryan Tinoco MD> Cosigner Signature (if applicable): CC: ~ Signed [facility] Work Phone: 1(219) 985-491607-12-2023 Progress note Author Lizzeth Riggs [facility] January 23, 2023 2:45pm Note Date/Time January 23, 2023 10:0 0am [facility] Medical Records Department [address] [place] [address] Progress Note - Cardiology 01/23/23 0946 MR#: [id number] Acct: [id number] Name: RICHARD ROY Rep #:[id number] : 1945 77 From: Rebecca LOZA PCP: Dr. Luis Caldera MD Status :ADM IN Location: ICU CVICU20 2-1 <Statement entered by Lizzeth Riggs MD - 01/23/23 14:44> Pt seen & evaluated w/TRIP. I personally interviewed & exam the pt. I was involved in all aspects of pt's orders, interpretation of results & treatment Subjective Subjective Pt slightly more awake today. Still only able to answer yes/no questions. Second degree heart block appears to be improving. Hgb is dropping. Objective Data Vital Signs: Vital Signs Temp Pulse Resp BP Pulse Ox O2 Del Method O2 Flow Rate 98.4 F 56 L 21 H 124/46 H 96 Room Air 2 01/23/23 08:00 01/23/23 09:00 01/23/23 09:00 01/23/23 09:00 01/23/23 09:00 01/23/23 09:00 01/21/23 15:00 Oxygen Flow Rate (L/min) 2 Oxygen Delivery Method Room Air Weight: 214 lb 11.684 oz Body Mass Index (BMI) 28.3 Intake & Output: Intake and Output for Last 24 Hours 01/21/23 01/22/23 01/23/23 23:59 23:59 23:59 Intake Total 3076.84 / 3076.84 2233.87 / 2233.87 189.5 / 189.5 Output Total 1350 / 1350 3030 / 3030 500 / 500 Balance 1726.84 / 1726.84 -796.13 / -796.13 -310.5 / -310.5 Lab / Micro Data 01/23/23 09:00 01/23/23 03:20 Labs: Laboratory Results - last 24 hr 01/22/23 09:28: POC Glucose 202 H 01/22/23 11:32: Lactic Acid 3.4 H*, Lactate Dehydrogenase 136, Total Creatine Kinase 31 L 01/22/23 14:02: POC Glucose 175 H 01/22/23 15:29: Hgb 9.8 L, Hct 29.9 L 01/22/23 17:36: POC Glucose 180 H 01/22/23 21:04: POC Glucose 201 H 01/23/23 01:09: POC Glucose 191 H 01/23/23 03:20: WBC 17.7 H, RBC 3.12 L, Hgb 8.7 L, Hct 26.6 L, MCV 85.3, MCH 27.9, MCHC 32.7, RDW Std Deviation 47.3 H, RDW Coeff of Nathaniel 15.7 H, Plt Count 198, MPV 10.3, Immature Gran % (Auto) 1.900 H, Neut % (Auto) 85.3 H, Lymph % (Auto) 4.8 L, [place] % (Auto) 7.1, Eos % (Auto) 0.7, Baso % (Auto) 0.2, Absolute Neuts (auto) 15.1 H, Absolute Lymphs (auto) 0.85, Nucleated RBC % 0.6, PT 16.8 H, INR 1.4, Sodium 148 H, Potassium 4.1, Chloride 120 H, Carbon Dioxide 24.0, Anion Gap 4 L, BUN 88 H, Creatinine 1.75 H, Estim Creat Clear Calc 41.22, Est GFR (MDRD) Af Amer 49 L, Est GFR (MDRD) Non-Af 41 L, BUN/Creatinine Ratio 50.3 H, Glucose 194 H, Calcium 8.3 L, Phosphorus 2.7, Magnesium 1.7 01/23/23 05:06: POC Glucose 189 H 01/23/23 09:00: Hgb 8.9 L, Hct 26.5 L Cardiology Labs/Tests 01/22/23 11:32: Lactic Acid 3.4 H* 01/22/23 15:29: Hgb 9.8 L, Hct 29.9 L 01/23/23 03:20: WBC 17.7 H, RBC 3.12 L, Hgb 8.7 L, Hct 26.6 L, MCV 85.3, MCH 27.9, MCHC 32.7, Plt Count 198, MPV 10.3, Immature Gran % (Auto) 1.900 H, Neut %(Auto) 85.3 H, Lymph % (Auto) 4.8 L, [place] % (Auto) 7.1, Eos % (Auto) 0.7, Baso %(Auto) 0.2, Absolute Neuts (auto) 15.1 H, Nucleated RBC % 0.6, PT 16.8 H, INR 1.4, Sodium 148 H, Potassium 4.1, Chloride 120 H, Carbon Dioxide 24.0, Anion Gap4 L, BUN 88 H, Creatinine 1.75 H, Est GFR (MDRD) Af Amer 49 L, Est GFR (MDRD) Non-Af 41 L, BUN/Creatinine Ratio 50.3 H, Glucose 194 H, Calcium 8.3 L, Phosphorus 2.7, Magnesium 1.7 01/23/23 09:00: Hgb 8.9 L, Hct 26.5 L Rhythm: Sinus laly, PACs, Intermittent second-degree AV block Radiography Diagnostic Testing: Radiology Impression Echocardiogram 01/22/23 08:24 Interpretation Summary The estimated ejection fraction is 55-60 %. Normal LV systolic function Ordering Physician: Ryan Tinoco Referring Physician: RAMÓN CALDERA Performed By: Linette Lange RCS Physical Exam Const no apparent distress and average body habitus Orientation / Consciousness: lethargic HEENT normocephalic, head/scalp atraumatic, hearing grossly normal bilaterally, external ears normal, external nose normal and moist oral mucous membranes Eyes PERRL, EOMs intact bilaterally, conjunctivae normal and no scleral icterus Neck no lymphadenopathy, supple and no JVD Resp normal respiratory effort Resp Narrative: diminished t/o Cardio Rate: bradycardia Rhythm: abnormal rhythm regularly irregular GI normal to inspection, nondistended, normoactive bowel sounds, soft to palpation,non-tender and non-distended Extremity normal to inspection, normal capillary refill, no clubbing, cyanosis or edema and no pedal edema Neuro oriented x3, CN's II-XII intact bilaterally, moves all extremities and no focal motor deficits Psych cooperative and affect normal Assessment & Plan Assessment/Plan (1) Second degree AV block, Mobitz type II: (2) HTN (hypertension): (3) History of thoracic aortic aneurysm repair: (4) History of pulmonary embolism: (5) Valvular heart disease: (6) Anemia: PLAN: Plan It is felt that his second-degree AV block type II is likely medication related. His IV medication has been discontinued. He is no longer on metoprolol. Rhythmwas reviewed with Dr. Riggs and Dr. Chandra. It appears that rhythm is improving. Feel that this could still be related to medication. For now recommend continued watchful monitoring. In regards to his EGD, okay to proceed with this. Do acknowledge that he could have lower heart rates. This was discussed with Dr. Riggs and Dr. Chandra. In regards to his AAA and Aortic valve repair, this appears stable. Charges/Coding Visit Charges Inpatient E&M: 78938 Subs Hosp L2 01/23/23 1000 <Electronically signed by Rebecca LOZA> Cosigner Signature (if applicable): 01/23/23 1445 <Electronically signed by Lizzeth Riggs MD> CC: ~ Signed [facility] Work Phone: 1(119) 697-102207-12-[address] [facility] 01-23-[address] [facility]07-12-2023 Progress note Author Ryan Tinoco [facility] January 23, 2023 9:01am Note Date/Time January 23, 2023 9:01 am [facility] Medical Records Department [address] [place] [id number] Progress Note - Hospitalist 01/23/23 0852 MR#: [id number] Acct: [id number] Name: RICHARD ROY Rep #:[id number] : 1945 77 From: Ryan Delgado PCP: Dr. Luis Caldera MD Status :ADM IN Location: ICU CVICU20 2-1 Reason for Visit Reason for Visit: Diagnoses Acute posthemorrhagic anemia (01/21/23) Essential (primary) hypertension (01/21/23) Endocarditis, valve unspecified (01/21/23) Atrioventricular block, second degree (01/21/23) Gastrointestinal hemorrhage, unspecified (01/21/23) Personal history of pulmonary embolism (01/21/23) Personal history of other diseases of the circulatory system (01/21/23) Other specified postprocedural states (01/21/23) Subjective Subjective Follow-up for Mobitz type II AV block and GI bleed complicated with acute blood loss anemia Objective Data Objective Data Vital Signs: Vital Signs Temp Pulse Resp BP Pulse Ox O2 Del Method O2 Flow Rate 98.4 F 57 L 21 H 128/50 H 95 Room Air 2 01/23/23 08:00 01/23/23 08:00 01/23/23 08:00 01/23/23 08:00 01/23/23 08:00 01/23/23 08:00 01/21/23 15:00 Oxygen Flow Rate (L/min) 2 Oxygen Delivery Method Room Air Weight: 214 lb 11.684 oz Body Mass Index (BMI) 28.3 Intake & Output: Intake and Output for Last 24 Hours 01/21/23 01/22/23 01/23/23 23:59 23:59 23:59 Intake Total 3076.84 / 3076.84 2233.87 / 2233.87 99.5 / 99.5 Output Total 1350 / 1350 3030 / 3030 500 / 500 Balance 1726.84 / 1726.84 -796.13 / -796.13 -400.5 / -400.5 Lab / Micro Data 01/23/23 03:20 01/23/23 03:20 Labs: Laboratory Results - last 24 hr 01/22/23 09:28: POC Glucose 202 H 01/22/23 11:32: Lactic Acid 3.4 H*, Lactate Dehydrogenase 136, Total Creatine Kinase 31 L 01/22/23 14:02: POC Glucose 175 H 01/22/23 15:29: Hgb 9.8 L, Hct 29.9 L 01/22/23 17:36: POC Glucose 180 H 01/22/23 21:04: POC Glucose 201 H 01/23/23 01:09: POC Glucose 191 H 01/23/23 03:20: WBC 17.7 H, RBC 3.12 L, Hgb 8.7 L, Hct 26.6 L, MCV 85.3, MCH 27.9, MCHC 32.7, RDW Std Deviation 47.3 H, RDW Coeff of Nathaniel 15.7 H, Plt Count 198, MPV 10.3, Immature Gran % (Auto) 1.900 H, Neut % (Auto) 85.3 H, Lymph % (Auto) 4.8 L, [place] % (Auto) 7.1, Eos % (Auto) 0.7, Baso % (Auto) 0.2, Absolute Neuts (auto) 15.1 H, Absolute Lymphs (auto) 0.85, Nucleated RBC % 0.6, PT 16.8 H, INR 1.4, Sodium 148 H, Potassium 4.1, Chloride 120 H, Carbon Dioxide 24.0, Anion Gap 4 L, BUN 88 H, Creatinine 1.75 H, Estim Creat Clear Calc 41.22, Est GFR (MDRD) Af Amer 49 L, Est GFR (MDRD) Non-Af 41 L, BUN/Creatinine Ratio 50.3 H, Glucose 194 H, Calcium 8.3 L, Phosphorus 2.7, Magnesium 1.7 01/23/23 05:06: POC Glucose 189 H Micro: Microbiology 01/21/23 09:15 Stool Stool Occult Blood (KLAUS) - Final Occult Blood Positive Radiography Diagnostic Testing: Radiology Impression Echocardiogram 01/22/23 08:24 Interpretation Summary The estimated ejection fraction is 55-60 %. Normal LV systolic function Ordering Physician: Ryan Tinoco Referring Physician: RAMÓN CALDERA Performed By: Linette Lange RCS Rhythm Strip Rhythm Strip: Sinus Rhythm Rate: 90 Ectopy: PAC(s) Physical Exam Narrative Seen and examined. Discussed with the nursing staff. Patient is still having Mobitz type II AV block, every third beat dropped. Discussed with the construction project mgr. No chest pain or tightness. General: Oriented x3, Cooperative. Intermittently, drowsiness and gets confused. BMI 28.9 KG per square meter. HEENT: Atraumatic, PERRLA, EOMI, Normocephalic Oral: Oral mucosa moist. No Gingival or Mucosal Lesions/ Ulcerations Neck: Supple, No JVD, Negative Carotid Bruits Lungs: Air entry diminished in bilateral lung bases. No crepitation/rhonchi Cardiovascular: Regular rate, Regular Rhythm, Normal S1, Normal S2, pansystolic murmur over cardiac apex. Abdomen: Bowel Sounds Present, Soft, Non Tender, Non-Distended : No renal angle tenderness. No suprapubic tenderness. Extremities: No edema, Capillary Refill Less than 3 Seconds Skin: No rashes, No breakdown Musculoskeletal: Muscle strength 4+/5 at knee and hip joints. ROM restricted. No Tenderness to Palpation of Joints or Extremities Neurological: Cranial nerves II-XII grossly intact, DTR 2+/4 and Symmetrical, Neuro grossly intact Psych/Mental Status: Flat affect. Amnesia/cognitive deficit. Assessment & Plan Assessment/Plan (1) Upper gastrointestinal bleeding: (2) ABLA (acute blood loss anemia): PLAN: Plan This is a 77-year-old gentleman being admitted from [facility] for multiple episodes of syncope and upper GI bleed 1. Acute blood loss anemia and hypotension due to upper GI bleed: Patient is being admitted in ICU. His baseline hemoglobin is 13.1 which dropped to 10.7. BP was low 108/70 with baseline 143/64. Patient was resuscitated with IV fluid last blood pressure 133/55. 2 units PRBC typed and crossmatched. Keep NPO. Continue IV fluid Ringer lactate. Patient started on IV pantoprazole drip afterbolus and octreotide drip. GI consulted. H&H monitoring. Patient has historyof gastric ulcer in the past when he had EGD in early . Had last colonoscopy less than a year was normal as per the . His medical care is under [facility]. 01/22: Hemoglobin dropped to 8.9. Patient had 2 units of PRBC transfusion and repeat hemoglobin 10.2. Octreotide discontinued as mentioned below. 01/23: Hemoglobin 8.7. Leukocytosis improving. Most likely reactive. Protonix drip changed to 40 mg IV every 12 hourly 2 Syncopal episode most likely due to hypotension/GI bleed: As per the nursing staff patient had multiple shorts, brief syncopal episodes with intermittent confusion in between. Patient had echo in June 2022 reported EF 65% moderate concentric LVH. Mild MR. Orthostatic BP when patient is stable 01/23: Positive fluid balance 500 mm/h. IV fluid D5W at 50 mill per hour for nutritional purposes. 3. Transient A-fib and Mobitz type II, second-degree AV block: Patient is started having irregular heartbeat initially A-fib postmidnight and then about 5AM Mobitz type II AV block. Initial EKG was normal sinus rhythm admission H&P. Second EKG at 9:26 PM shows sinus rhythm with second-degree Mobitz type II blockbut there was 2 dropped heartbeat in EKG. apricot packer shows heart rate slowed down to 48 to 60/min. EKG in the morning about 6 AM today shows sinus rhythm with second- degree Mobitz type II block, RBBB, LAFB bifascicular block. Patient has history of bifascicular block. I talked to the patient's and informed her about the update. Patient has history of ascending aortic aneurysmand had that repaired along with aortic valve in [facility]. His construction project mgr is Dr. Huston in [facility]. I think this is most probably due to start of the octreotide drip as patient was in sinus normal rhythm at time ofadmission. Octreotide discontinued. [employer] consulted. 2D echo ordered. 01/23: Echo states EF 55 to 60%, normal LV systolic function. Trivial MR. Mild diffuse aortic valve calcification. Normal left atrium. 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 Chandra regarding assessment for pacemaker 3. Essential hypertension and dyslipidemia-hold antihypertensive medications. Statin when oral is allowed. Blood pressure has recovered to 114/63 but patientstill has weak radial pulse. Carotid pulses good. Hold antihypertensive medications. 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 01/23: Glucose between 1 50?200. Accu-Chek every 6 hourly incorrigible of sliding scale.. Patient is NPO. #5 DVT on warfarin with supratherapeutic INR: Patient on warfarin. INR 4.2. Vitamin K 5 mg IV given in ED. 01/23: Repeat INR is 1.4. #6 BPH-patient is on Flomax, on hold #7 acute debility, disequilibrium: PT and OT ordered. #8 possible depression versus early dementia: Patient is on antidepressant and Aricept. Will resume once oral is allowed. 9. Lactic acidosis mostly due to hypotension and hypoperfusion: Lactic acid hasdecreased. I do not think patient has suspected or confirmed focus of infection. Therefore sepsis or septic shock is ruled out. VTE prophylaxis: Pharmacological prophylaxis contraindicated in view of GI bleed, acute blood loss anemia and supratherapeutic INR. Bilateral SCDs. Living will/advanced directive/end of life care: Patient does have living will or advanced directive. 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 After discussion of benefits/risks procedures involved with full code, DNR CC arrest and DNR CC, the patient and his opted for full code. Patient does want artificial life support including intubation, tube feed, ventilator and/chest compression, central venous catheter, vasopressor and DC shock if needed Clinical Impression(s) from Imaging Studies Brain CT 01/21/23 09:00 IMPRESSION: Chronic involutional changes of the brain. Partial opacification of the right maxillary and right frontal sinus Electronically Signed: Ravindra Sierra MD at 10:43 EDT , Chest X-Ray 01/21/23 09:30 IMPRESSION: No acute abnormality is seen. Echocardiogram 01/22/23 08:24 Interpretation Summary The estimated ejection fraction is 55-60 %. Normal LV systolic function Charges/Coding Addendum Addendum: Total time of the visit including total time spent in counseling or coordinationof care, (more than 50% of the total time, spent in obtaining medical information from nurses and other ancillary care providers,explaining to the patient about labs, imaging, diagnosis and management of active complex medical conditions including multiple organ systems), coordination with cardiology and GI teamcenter consultant, review of labs and imaging is 50 minutes. Visit Charges Inpatient E&M: 89010 Subs Hosp L3 01/23/23 0901 <Electronically signed by Ryan Tinoco MD> Cosigner Signature (if applicable): CC: ~ Signed [facility] Work Phone: 1(180) 949-283707-11-2023 Consult note Author Rebecca Leon [facility] January 22, 2023 4:28pm Note Date/Time January 22, 2023 4:07 pm [facility] Medical Records Department [address] [place] [address] Consultation - Cardiology 01/22/23 1605 MR#: [id number] Acct: [id number] Name: RICHARD ROY Rep #:[id number] : 1945 77 From: Rebecca LOZA PCP: Dr. Luis Caldera MD Status :ADM IN Location: ICU CVICU20 2-1 Assessment & Plan Assessment/Plan (1) Second degree AV block, Mobitz type II: (2) HTN (hypertension): (3) History of thoracic aortic aneurysm repair: (4) History of pulmonary embolism: (5) Valvular heart disease: PLAN: Plan It is felt that his second-degree AV block type II is likely medication related. His IV medication has been discontinued. He is no longer on metoprolol. Wouldlike to continue to monitor her rhythm overnight. If his rhythm continues may consider a pacemaker. If his rhythm does improve would not resume any rate limiting medications. Would also plan on sending home on an event monitor to further evaluate. Echocardiogram is pending today. HPI Consult Data Date of Consult: 01/22/23 HPI Narrative HPI Narrative: RICHARD ROY, is a 77 M that has developed 2nd AVB type II. 1 of patient does have a history of hypertension, aortic valve disease with repair, thoracic aortic aneurysm repair, pulmonary embolus, diabetes. Patient was in the hospital in June 2022 for a non-STEMI. He underwent a stress test which wasnegative for ischemia. It was felt that his non-STEMI was likely type II event. He then was in the hospital in December for confusion and weakness. At that hospital stay he was discharged to a nursing home facility for rehab. He presented back to the emergency room yesterday for syncope. The nurses at [facility] had noted that he was unresponsive at the facility and transferred him here. At that time it also noted that he has been having some black tarry stools. Did drop down to 8.9 and he did receive 2 units of blood. Patient was on IV octreotide for his GI bleed. This morning he was noted to have second- degree AV block type II. He had last received his metoprolol while in the senior living on 01/20/2023. I did speak with , states that prior to his most recent hospital stay in December he was living at home. He did have some issues with confusion her plan is to have him discharged back home after rehab when he is able to do so. She does not recall any syncopal events prior to his most recent hospital stay. She wonders if some of this change in level of consciousness also has to do with medications that were adjusted at his last hospital stay. [facility] Medical History (Updated 01/22/23 @ 16:25 by Rebecca Leon PA, PA) Amputation of right great toe Aortic aneurysm without rupture COVID-19 Diabetes Diabetic neuropathy HLD (hyperlipidemia) HTN (hypertension) Hyperkalemia Lactic acidosis Leukocytosis NSTEMI, initial episode of care Osteomyelitis Pulmonary emboli RBBB (right bundle 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) Second degree AV block, Mobitz type II Ulcer of right great toe due to diabetes mellitus Upper gastrointestinal bleed Ureterolithiasis Valvular heart disease Home Medications metoprolol succinate 200 mg tablet,extended release 24 hr 200 mg PO DAILY blood pressure 09/16/13 [History Last Taken 01/20/23] losartan 50 mg tablet 50 mg PO DAILY blood pressure 03/24/18 [History Last Taken 01/20/23] atorvastatin 40 mg tablet 40 mg PO QHS cholesterol 05/22/18 [History Last Taken 01/20/23] warfarin 5 mg tablet (Jantoven) 7.5 mg PO SUTUWETHFRSA anticoagulant 05/22/18 [History Last Taken 01/20/23] tamsulosin 0.4 mg capsule 0.4 mg PO QHS PROSTATE 03/02/22 [History Last Taken 01/20/23] warfarin 5 mg tablet 10 mg PO MO BLOOD THINNER 03/02/22 [History Last Taken 01/02/23] amlodipine 2.5 mg tablet 2.5 mg PO DAILY BP 30 days #30 tabs 07/11/22 [Rx Last Taken 01/20/23] insulin glargine 100 unit/mL (3 mL) subcutaneous pen (Lantus Solostar U-100 Insulin) 12 unit (0.12 mL) subcut DAILY diabetes #15 mL 07/11/22 [Rx Last Taken 01/20/23] acetaminophen 325 mg tablet 650 mg (2 x 325 mg) PO Q4H PRN PRN PAIN AND FEVER #0tabs 01/08/23 [Rx Last Taken 01/19/23] donepezil 5 mg tablet (Aricept) 5 mg PO QHS DEMENTIA #1 TAB 01/08/23 [Rx Last Taken 01/20/23] melatonin 3 mg tablet 3 mg PO QHS PRN PRN Insomnia #1 TAB 01/08/23 [Rx Last Taken Unknown] cholecalciferol (vitamin D3) 1,250 mcg (50,000 unit) tablet 1,250 mcg PO MO SUPPLEMENT 01/21/23 [History Last Taken 01/14/23] donepezil 10 mg tablet 10 mg PO QHS DEMENTIA 01/21/23 [History Last Taken 01/20/23] duloxetine 60 mg capsule,delayed release (Cymbalta) 60 mg PO DAILY DEPRESSION 01/21/23 [History Last Taken 01/20/23] insulin lispro 100 unit/mL subcutaneous pen (Humalog KwikPen (U-100) Insulin) See Protocol subcut ACHS DM 01/21/23 [History Last Taken 01/21/23] metformin 1,000 mg tablet 1,000 mg PO BID DM 01/21/23 [History Last Taken 01/20/23] Allergy/AdvReac Type Severity Reaction Status Date / Time propofol AdvReac Other Verified 01/21/23 08:23 Family History Mother Heart disease Diabetes Hypertension Father Heart disease Surgical History H/O aortic valve repair History of foot surgery History of thoracic aortic aneurysm repair Hx of abdominal surgery Social History housing: senior living current occupational status: retired Smoking Status: Never smoker alcohol intake: never substance use type: does not use ROS Review of Systems ROS Unobtainable: due to mental status Physical Exam Const no apparent distress and average body habitus Orientation / Consciousness: lethargic HEENT normocephalic, head/scalp atraumatic, hearing grossly normal bilaterally, external ears normal, external nose normal and moist oral mucous membranes Eyes PERRL, EOMs intact bilaterally, conjunctivae normal and no scleral icterus Neck no lymphadenopathy, supple and no JVD Cardio Rate: bradycardia Rhythm: abnormal rhythm regularly irregular GI normal to inspection, nondistended, normoactive bowel sounds, soft to palpation,non-tender and non-distended Extremity normal to inspection, normal capillary refill, no clubbing, cyanosis or edema and no pedal edema Neuro oriented x3, CN's II-XII intact bilaterally, moves all extremities and no focal motor deficits Psych cooperative and affect normal Risk Stratification Risk Stratification Applicable: No Charges/Coding Visit Charges Office Visits / Consults: 12042 IP Consult L3 Objective Data Vital Signs: Vital Signs Temp Pulse Resp BP Pulse Ox O2 Del Method O2 Flow Rate 97.6 F L 64 16 95/45 L 96 Room Air 2 01/22/23 15:00 01/22/23 15:00 01/22/23 15:00 01/22/23 15:00 01/22/23 15:43 01/22/23 15:43 01/21/23 15:00 Oxygen Flow Rate (L/min) 2 Oxygen Delivery Method Room Air Weight: 220 lb 14.451 oz Body Mass Index (BMI) 29.2 Intake & Output: Intake and Output for Last 24 Hours 01/20/23 01/21/23 01/22/23 23:59 23:59 23:59 Intake Total 3076.84 / 3076.84 1233.87 / 1233.87 Output Total 1350 / 1350 2270 / 2270 Balance 1726.84 / 1726.84 -1036.13 / -1036.13 Lab / Micro Data 01/22/23 15:29 01/22/23 06:45 Labs: Laboratory Results - last 24 hr 01/21/23 08:40: Crossmatch See Detail 01/21/23 19:03: POC Glucose 175 H 01/21/23 20:00: Hgb 8.9 L, Hct 28.4 L 01/21/23 22:12: POC Glucose 168 H 01/22/23 06:23: POC Glucose 183 H 01/22/23 06:45: WBC 22.4 H, RBC 3.63 L, Hgb 10.2 L, Hct 30.8 L, MCV 84.8, MCH 28.1, MCHC 33.1 D, RDW Std Deviation 46.7 H, RDW Coeff of Nathaniel 15.5 H, Plt [id number], MPV 10.1, Immature Gran % (Auto) 3.300 H, Neut % (Auto) 81.9 H, Lymph % (Auto) 5.9 L, [place] % (Auto) 8.0, Eos % (Auto) 0.7, Baso % (Auto) 0.2, Absolute Neuts (auto) 18.3 H, Absolute Lymphs (auto) 1.33, Nucleated RBC % 0.1, Diff PathReview May foll, Polychromasia 1+, Anisocytosis 1+, Sodium 144, Potassium 4.4, Chloride 116 H, Carbon Dioxide 20.0 L, Anion Gap 8, BUN 123 H*, Creatinine 1.93 H, Estim Creat Clear Calc 37.37, Est GFR (MDRD) Af Amer 44 L, Est GFR (MDRD) Non-Af 36 L, BUN/Creatinine Ratio 63.7 H, Glucose 200 H, Calcium 8.8, Phosphorus3.5, Magnesium 1.4 L 01/22/23 07:27: PT 16.1 H, INR 1.3 01/22/23 09:28: POC Glucose 202 H 01/22/23 11:32: Lactic Acid 3.4 H*, Lactate Dehydrogenase 136, Total Creatine Kinase 31 L 01/22/23 14:02: POC Glucose 175 H 01/22/23 15:29: Hgb 9.8 L, Hct 29.9 L Rhythm Strip Rhythm Strip: Sinus Rhythm Rate: 90 Ectopy: PAC(s) Cardiology Labs/Tests 01/21/23 20:00: Hgb 8.9 L, Hct 28.4 L 01/22/23 06:45: WBC 22.4 H, RBC 3.63 L, Hgb 10.2 L, Hct 30.8 L, MCV 84.8, MCH 28.1, MCHC 33.1 D, Plt Count 239, MPV 10.1, Immature Gran % (Auto) 3.300 H, Neut % (Auto) 81.9 H, Lymph % (Auto) 5.9 L, [place] % (Auto) 8.0, Eos % (Auto) 0.7,Baso % (Auto) 0.2, Absolute Neuts (auto) 18.3 H, Nucleated RBC % 0.1, Sodium 144, Potassium 4.4, Chloride 116 H, Carbon Dioxide 20.0 L, Anion Gap 8, BUN 123 H*, Creatinine 1.93 H, Est GFR (MDRD) Af Amer 44 L, Est GFR (MDRD) Non-Af 36 L, BUN/Creatinine Ratio 63.7 H, Glucose 200 H, Calcium 8.8, Phosphorus 3.5, Magnesium 1.4 L 01/22/23 07:27: PT 16.1 H, INR 1.3 01/22/23 11:32: Lactic Acid 3.4 H* 01/22/23 15:29: Hgb 9.8 L, Hct 29.9 L Rhythm: EKG:Second degree AVB type II 01/22/23 1628 <Electronically signed by Rebecca LOZA> Cosigner Signature (if applicable): CC: Dr. Luis Caldera MD; Dr. Lizzeth Riggs MD~ Signed [facility] Work Phone: [phone]) 564-320407-11-2023 Progress note Author Ryan Tinoco [facility] January 22, 2023 8:38am Note Date/Time January 22, 2023 8:22 am [facility] Medical Records Department [address] [place] [address] Progress Note - Hospitalist 01/22/23818 MR#: [id number] Acct: [id number] Name: RICHARD ROY Rep #:[id number] : 1945 77 From: Ryan Delgado PCP: Dr. Luis Caldera MD Status :ADM IN Location: ICU [place] [address] 2-1 Reason for Visit Reason for Visit: Diagnoses Acute posthemorrhagic anemia (01/21/23) Gastrointestinal hemorrhage, unspecified (01/21/23) Subjective Subjective Follow-up for upper GI bleed and Mobitz type II block Objective Data Objective Data Vital Signs: Vital Signs Temp Pulse Resp BP Pulse Ox O2 Del Method O2 Flow Rate 96.8 F L 66 14 114/63 98 Room Air 2 01/22/23 08:00 01/22/23 08:00 01/22/23 08:00 01/22/23 08:00 01/22/23 08:00 01/22/23 08:00 01/21/23 15:00 Oxygen Flow Rate (L/min) 2 Oxygen Delivery Method Room Air Weight: 218 lb 4.122 oz Body Mass Index (BMI) 28.8 Intake & Output: Intake and Output for Last 24 Hours 01/20/23 01/21/23 01/22/23 23:59 23:59 23:59 Intake Total 3076.84 / 3076.84 1139.58 / 1139.58 Output Total 1350 / 1350 1380 / 1380 Balance 1726.84 / 1726.84 -240.42 / -240.42 Lab / Micro Data 01/22/23 06:45 01/22/23 06:45 Labs: Laboratory Results - last 24 hr 01/21/23 08:40: WBC 22.4 H, RBC 3.96 L, Hgb 10.7 L, Hct 34.3 L, MCV 86.6, MCH 27.0, MCHC 31.2 L, RDW Std Deviation 46.6 H, RDW Coeff of Nathaniel 14.7 H, Plt Count 389, MPV 10.7, Immature Gran % (Auto) 2.000 H, Neut % (Auto) 87.8 H, Lymph % (Auto) 7.5 L, [place] % (Auto) 2.4, Eos % (Auto) 0.0, Baso % (Auto) 0.3, Absolute Neuts (auto) 19.7 H, Absolute Lymphs (auto) 1.69, Nucleated RBC % 0, PT 41.4 H, INR 4.2 H*, Sodium 138, Potassium 5.2 H, Chloride 109 H, Carbon Dioxide 12.0 L, Anion Gap 17 H, BUN 125 H*, Creatinine 1.99 H, Estim Creat Clear Calc 36.25, EstGFR (MDRD) Af Amer 42 L, Est GFR (MDRD) Non-Af 35 L, BUN/Creatinine Ratio 62.8 H, Glucose 248 H, Lactic Acid 7.9 H*, Calcium 9.7, Phosphorus 4.6, Magnesium 2.1,Total Bilirubin 0.30, AST 9 L, ALT 25, Alkaline Phosphatase 76, Troponin I High Sens 23, Total Protein 5.4 L, Albumin 2.7 L, Globulin 2.7, Albumin/Globulin Ratio 1.0, Blood Type A POSITIVE, Antibody Screen NEGATIVE, Crossmatch See Detail 01/21/23 11:00: Urine Color Yellow, Urine Clarity Clear, Urine pH 5.0, Ur Specific [place] 1.020, Urine Protein 15 H, Urine Glucose (UA) 100 H, Urine Ketones 15 H, Urine Occult Blood Negative, Urine Nitrite Negative, Urine Bilirubin 1 H, Urine Urobilinogen Normal, Ur Leukocyte Esterase Negative, Urine RBC 0 SEEN, Urine WBC 0-5 SEEN, Ur Squamous Epith Cells 0-5 SEEN, Urine Bacteria0 SEEN, Urine Mucus 0 SEEN 01/21/23 13:10: Lactic Acid 6.7 H* 01/21/23 14:34: POC Glucose 203 H 01/21/23 19:03: POC Glucose 175 H 01/21/23 20:00: Hgb 8.9 L, Hct 28.4 L 01/21/23 22:12: POC Glucose 168 H 01/22/23 06:23: POC Glucose 183 H 01/22/23 06:45: WBC 22.4 H, RBC 3.63 L, Hgb 10.2 L, Hct 30.8 L, MCV 84.8, MCH 28.1, MCHC 33.1 D, RDW Std Deviation 46.7 H, RDW Coeff of Nathaniel 15.5 H, Plt [id number], MPV 10.1, Immature Gran % (Auto) 3.300 H, Neut % (Auto) 81.9 H, Lymph % (Auto) 5.9 L, [place] % (Auto) 8.0, Eos % (Auto) 0.7, Baso % (Auto) 0.2, Absolute Neuts (auto) 18.3 H, Absolute Lymphs (auto) 1.33, Nucleated RBC % 0.1, Diff PathReview May foll, Polychromasia 1+, Anisocytosis 1+, Sodium 144, Potassium 4.4, Chloride 116 H, Carbon Dioxide 20.0 L, Anion Gap 8, BUN 123 H*, Creatinine 1.93 H, Estim Creat Clear Calc 37.37, Est GFR (MDRD) Af Amer 44 L, Est GFR (MDRD) Non-Af 36 L, BUN/Creatinine Ratio 63.7 H, Glucose 200 H, Calcium 8.8, Phosphorus3.5, Magnesium 1.4 L 01/22/23 07:27: PT 16.1 H, INR 1.3 Micro: Microbiology 01/21/23 09:15 Stool Stool Occult Blood (KLAUS) - Final Occult Blood Positive Radiography Diagnostic Testing: Radiology Impression Brain CT 01/21/23 09:00 IMPRESSION: Chronic involutional changes of the brain. Partial opacification of the right maxillary and right frontal sinus Electronically Signed: Ravindra Sierra MD at 10:43 EDT , Chest X-Ray 01/21/23 09:30 IMPRESSION: No acute abnormality is seen. Electronically Signed: Ravindra Sierra MD at 10:30 EDT , Rhythm Strip Rhythm Strip: Sinus Rhythm Rate: 90 Ectopy: PAC(s) Physical Exam Narrative Seen and examined. Discussed with the nursing staff. Patient is started havingirregular heartbeat after midnight, initially A-fib on engineer third assistant. After that about 5 AM patient started having Mobitz type II AV block EKG was done. Patient himself does not have symptoms of shortness of breath chest pain pressure or tightness. General: Alert, Oriented x3, Cooperative. Intermittently gets confused. BMI 28.9 KG per square meter. HEENT: Atraumatic, PERRLA, EOMI, Normocephalic Oral: Oral mucosa moist. No Gingival or Mucosal Lesions/ Ulcerations Neck: Supple, No JVD, Negative Carotid Bruits Lungs: Air entry diminished in bilateral lung bases. No crepitation/rhonchi Cardiovascular: Regular rate, Regular Rhythm, Normal S1, Normal S2, pansystolic murmur over cardiac apex. Abdomen: Bowel Sounds Present, Soft, Non Tender, Non-Distended : No renal angle tenderness. No suprapubic tenderness. Extremities: No edema, Capillary Refill Less than 3 Seconds Skin: No rashes, No breakdown Musculoskeletal: Muscle strength 4+/5 at knee and hip joints. ROM restricted. No Tenderness to Palpation of Joints or Extremities Neurological: Cranial nerves II-XII grossly intact, DTR 2+/4 and Symmetrical, Neuro grossly intact Psych/Mental Status: Flat affect. Amnesia/cognitive deficit. Assessment & Plan Assessment/Plan (1) Upper gastrointestinal bleeding: (2) ABLA (acute blood loss anemia): PLAN: Plan This is a 77-year-old gentleman being admitted from [facility] for multiple episodes of syncope and upper GI bleed 1. Acute blood loss anemia and hypotension due to upper GI bleed: Patient is being admitted in ICU. His baseline hemoglobin is 13.1 which dropped to 10.7. BP was low 108/70 with baseline 143/64. Patient was resuscitated with IV fluid last blood pressure 133/55. 2 units PRBC typed and crossmatched. Keep NPO. Continue IV fluid Ringer lactate. Patient started on IV pantoprazole drip afterbolus and octreotide drip. GI consulted. H&H monitoring. Patient has historyof gastric ulcer in the past when he had EGD in early . Had last colonoscopy less than a year was normal as per the . His medical care is under [facility]. 01/22: Hemoglobin dropped to 8.9. Patient had 2 units of PRBC transfusion and repeat hemoglobin 10.2. Octreotide discontinued as mentioned below. 2 Syncopal episode most likely due to hypotension/GI bleed: As per the nursing staff patient had multiple shorts, brief syncopal episodes with intermittent confusion in between. Patient had echo in June 2022 reported EF 65% moderate concentric LVH. Mild MR. Orthostatic BP when patient is stable 3. Transient A-fib and Mobitz type II, second-degree AV block: Patient is started having irregular heartbeat initially A-fib postmidnight and then about 5AM Mobitz type II AV block. Initial EKG was normal sinus rhythm admission H&P. Second EKG at 9:26 PM shows sinus rhythm with second-degree Mobitz type II blockbut there was 2 dropped heartbeat in EKG. apricot packer shows heart rate slowed down to 48 to 60/min. EKG in the morning about 6 AM today shows sinus rhythm with second- degree Mobitz type II block, RBBB, LAFB bifascicular block. Patient has history of bifascicular block. I talked to the patient's and informed her about the update. Patient has history of ascending aortic aneurysmand had that repaired along with aortic valve in [facility]. His construction project mgr is Dr. Huston in [facility]. I think this is most probably due to start of the octreotide drip as patient was in sinus normal rhythm at time ofadmission. Octreotide discontinued. Instructor Traffic Safety consulted. 2D echo ordered. 3. Essential hypertension and dyslipidemia-hold antihypertensive medications. Statin when oral is allowed. Blood pressure has recovered to 114/63 but patientstill has weak radial pulse. Carotid pulses good. Hold antihypertensive medications. 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 #5 DVT on warfarin with supratherapeutic INR: Patient on warfarin. INR 4.2. Vitamin K 5 mg IV given in ED. Repeat INR tomorrow AM. #6 BPH-patient is on Flomax, on hold #7 acute debility, disequilibrium: PT and OT ordered. #8 possible depression versus early dementia: Patient is on antidepressant and Aricept. Will resume once oral is allowed. 9. Lactic acidosis mostly due to hypotension and hypoperfusion: Lactic acid hasdecreased. I do not think patient has suspected or confirmed focus of infection. Therefore sepsis or septic shock is ruled out. VTE prophylaxis: Pharmacological prophylaxis contraindicated in view of GI bleed, acute blood loss anemia and supratherapeutic INR. Bilateral SCDs. Living will/advanced directive/end of life care: Patient does have living will or advanced directive. 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 After discussion of benefits/risks procedures involved with full code, DNR CC arrest and DNR CC, the patient and his opted for full code. Patient does want artificial life support including intubation, tube feed, ventilator and/chest compression, central venous catheter, vasopressor and DC shock if needed Charges/Coding Visit Charges Inpatient E&M: 01099 [facility] 01/22/23 0838 <Electronically signed by Ryan Tinoco MD> Cosigner Signature (if applicable): CC: ~ Signed [facility] Work Phone: 1(735) 373-251607-10-2023 Consult note Author Liu Hackett [facility] January 21, 2023 7:07pm Note Date/Time January 21, 2023 7:04 pm [facility] Medical Records Department [address] [place] [address] Consultation - GI 01/21/23 1902 MR#: [id number] Acct: [id number] Name: RICHARD ROY Rep #:[id number] : 1945 77 From: Liu Hackett DO PCP: Dr. Luis Caldera MD Status :ADM IN Location: ICU CVICU20 2-1 HPI Consult Data Date of Consult: 01/21/23 HPI Narrative Reason for Consultation: GI bleed HPI Narrative: RICHARD ROY, is a 77 M who presents with melena goals from senior living. He is on warfarin for history of DVT and atrial fibrillation. [facility]. He was admitted between 01/05 to 01/08/23 for confusion and generalized weakness, stroke was ruled out and was sent to senior living there. Started getting confused within the past month or so, was living at home with his prior to that. Today apparently became unresponsive/syncopal with the nurses at the facility and according to staff prior to sending him here, had some black tarry stool. History is extremely limited from the patient he is able to speak but does not remember anything about events this morning and denies having pain anywhere right now. The states that when they sat him up earlier he complained about back pain, but he denies it right now. His hemoglobin was down to 10.9 from 13.1 on discharge. 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 Upper gastrointestinal bleed Ureterolithiasis Valvular heart disease Home Medications metoprolol succinate 200 mg tablet,extended release 24 hr 200 mg PO DAILY blood pressure 09/16/13 [History Last Taken 01/20/23] losartan 50 mg tablet 50 mg PO DAILY blood pressure 03/24/18 [History Last Taken 01/20/23] atorvastatin 40 mg tablet 40 mg PO QHS cholesterol 05/22/18 [History Last Taken 01/20/23] warfarin 5 mg tablet (Jantoven) 7.5 mg PO SUTUWETHFRSA anticoagulant 05/22/18 [History Last Taken 01/20/23] tamsulosin 0.4 mg capsule 0.4 mg PO QHS PROSTATE 03/02/22 [History Last Taken 01/20/23] warfarin 5 mg tablet 10 mg PO MO BLOOD THINNER 03/02/22 [History Last Taken 01/02/23] amlodipine 2.5 mg tablet 2.5 mg PO DAILY BP 30 days #30 tabs 07/11/22 [Rx Last Taken 01/20/23] insulin glargine 100 unit/mL (3 mL) subcutaneous pen (Lantus Solostar U-100 Insulin) 12 unit (0.12 mL) subcut DAILY diabetes #15 mL 07/11/22 [Rx Last Taken 01/20/23] acetaminophen 325 mg tablet 650 mg (2 x 325 mg) PO Q4H PRN PRN PAIN AND FEVER #0tabs 01/08/23 [Rx Last Taken 01/19/23] donepezil 5 mg tablet (Aricept) 5 mg PO QHS DEMENTIA #1 TAB 01/08/23 [Rx Last Taken 01/20/23] melatonin 3 mg tablet 3 mg PO QHS PRN PRN Insomnia #1 TAB 01/08/23 [Rx Last Taken Unknown] cholecalciferol (vitamin D3) 1,250 mcg (50,000 unit) tablet 1,250 mcg PO MO SUPPLEMENT 01/21/23 [History Last Taken 01/14/23] donepezil 10 mg tablet 10 mg PO QHS DEMENTIA 01/21/23 [History Last Taken 01/20/23] duloxetine 60 mg capsule,delayed release (Cymbalta) 60 mg PO DAILY DEPRESSION 01/21/23 [History Last Taken 01/20/23] insulin lispro 100 unit/mL subcutaneous pen (Humalog KwikPen (U-100) Insulin) See Protocol subcut ACHS DM 01/21/23 [History Last Taken 01/21/23] metformin 1,000 mg tablet 1,000 mg PO BID DM 01/21/23 [History Last Taken 01/20/23] Allergy/AdvReac Type Severity Reaction Status Date / Time propofol AdvReac Other Verified 01/21/23 08:23 Family History Mother Heart disease Diabetes Hypertension Father Heart disease Surgical History H/O aortic valve repair History of foot surgery History of thoracic aortic aneurysm repair Hx of abdominal surgery Social History housing: senior living current occupational status: retired Smoking Status: Never smoker alcohol intake: never substance use type: does not use ROS ROS Narrative 14 system ROS limited as patient does not remember well possible early dementia. Constitutional: Reports fatigue and weakness. No fever. HEENT: Reports systems reviewed and no addt'l complaints, except as documented Respiratory/Chest: No acute shortness of breath or respiratory distress or wheezing. CVS: Syncopal episodes. No chest pain/pressure Gastrointestinal: Denies coffee ground emesis, or nausea. No abdominal pain. Rest as described in HPI Genitourinary: Denies burning urination or new urinary tract symptoms Musculoskeletal: Chronic disequilibrium and arthritis. Denies acute joint pain or limited range of motion. No acute injury Neurologic: Denies seizure-like symptoms. skin: No ulcer. No rash Endocrinology: Reports systems reviewed and no addt'l complaints, except as documented Hematologic/Lymphatic: Reports systems reviewed and no addt'l complaints, exceptas documented Rest 14 ROS are negative except as mentioned in HPI Physical Exam Narrative General: Alert, Oriented x3, Cooperative. BMI 28.9 KG per square meter. HEENT: Atraumatic, PERRLA, EOMI, Normocephalic Oral: Oral mucosa dry. Dry crust on the posterior tongue. No Gingival or Mucosal Lesions/ Ulcerations Neck: Supple, No JVD, Negative Carotid Bruits Lungs: Air entry diminished in bilateral lung bases. No crepitation/rhonchi Cardiovascular: Regular rate, Regular Rhythm, Normal S1, Normal S2, pansystolic murmur over cardiac apex. Abdomen: Bowel Sounds Present, Soft, Non Tender, Non-Distended : No renal angle tenderness. No suprapubic tenderness. Extremities: No edema, Capillary Refill Less than 3 Seconds Skin: No rashes, No breakdown Musculoskeletal: Muscle strength 4+/5 at knee and hip joints. ROM restricted. No Tenderness to Palpation of Joints or Extremities Neurological: Cranial nerves II-XII grossly intact, DTR 2+/4 and Symmetrical, Neuro grossly intact Psych/Mental Status: Flat affect. Amnesia/cognitive deficit. Lab / Micro Data 01/21/23 08:40 01/21/23 08:40 Labs: Laboratory Results - last 24 hr 01/21/23 08:40: WBC 22.4 H, RBC 3.96 L, Hgb 10.7 L, Hct 34.3 L, MCV 86.6, MCH 27.0, MCHC 31.2 L, RDW Std Deviation 46.6 H, RDW Coeff of Nathaniel 14.7 H, Plt Count 389, MPV 10.7, Immature Gran % (Auto) 2.000 H, Neut % (Auto) 87.8 H, Lymph % (Auto) 7.5 L, [place] % (Auto) 2.4, Eos % (Auto) 0.0, Baso % (Auto) 0.3, Absolute Neuts (auto) 19.7 H, Absolute Lymphs (auto) 1.69, Nucleated RBC % 0, PT 41.4 H, INR 4.2 H*, Sodium 138, Potassium 5.2 H, Chloride 109 H, Carbon Dioxide 12.0 L, Anion Gap 17 H, BUN 125 H*, Creatinine 1.99 H, Estim Creat Clear Calc 36.25, EstGFR (MDRD) Af Amer 42 L, Est GFR (MDRD) Non-Af 35 L, BUN/Creatinine Ratio 62.8 H, Glucose 248 H, Lactic Acid 7.9 H*, Calcium 9.7, Phosphorus 4.6, Magnesium 2.1,Total Bilirubin 0.30, AST 9 L, ALT 25, Alkaline Phosphatase 76, Troponin I High Sens 23, Total Protein 5.4 L, Albumin 2.7 L, Globulin 2.7, Albumin/Globulin Ratio 1.0, Blood Type A POSITIVE, Antibody Screen NEGATIVE 01/21/23 11:00: Urine Color Yellow, Urine Clarity Clear, Urine pH 5.0, Ur Specific [place] 1.020, Urine Protein 15 H, Urine Glucose (UA) 100 H, Urine Ketones 15 H, Urine Occult Blood Negative, Urine Nitrite Negative, Urine Bilirubin 1 H, Urine Urobilinogen Normal, Ur Leukocyte Esterase Negative, Urine RBC 0 SEEN, Urine WBC 0-5 SEEN, Ur Squamous Epith Cells 0-5 SEEN, Urine Bacteria0 SEEN, Urine Mucus 0 SEEN 01/21/23 13:10: Lactic Acid 6.7 H* 01/21/23 14:34: POC Glucose 203 H Micro: Microbiology 01/21/23 09:15 Stool Stool Occult Blood (KLAUS) - Final Occult Blood Positive Rhythm Strip Rhythm Strip: Sinus Rhythm Rate: 90 Ectopy: PAC(s) Radiology Impression Brain CT 01/21/23 09:00 IMPRESSION: Chronic involutional changes of the brain. Partial opacification of the right maxillary and right frontal sinus Electronically Signed: Ravindra Sierra MD at 10:43 EDT , Chest X-Ray 01/21/23 09:30 IMPRESSION: No acute abnormality is seen. Electronically Signed: Ravindra Sierra MD at 10:30 EDT , Assessment & Plan Assessment/Plan (1) Upper gastrointestinal bleeding: PLAN: 77-year-old gentleman with history atrial fibrillation and DVT on Coumadinwho presents with possible upper GI bleed. He has significant leukocytosis and lactic acidosis from unknown cause. He is being seen and treated by hospital service. If patient continues to be stable then he will undergo EGD tomorrow. Recommend continue octreotide and PPI drip. The plan was explained to the patient and the patient's at the bedside. They were explained alternatives, risk, benefits including outstanding bleeding, infection, sepsis, perforation, need for emergency to . He will have an ASA of 3 for the procedure. Recommend to check H&H every 6 hours. Charges/Coding Visit Charges Inpatient E&M: 52780 Init Hosp L3 01/21/231906 <Electronically signed by Liu Friend DO> Cosigner Signature (if applicable): CC: Dr. Luis Caldera MD~ Signed [facility] Work Phone: 1(707) 970-461107-10-2023 Discharge summary Author Dandy Sauer [facility] January 21, 2023 5:25pm Note Date/Time January 21, 2023 9:06 am [facility] Medical Records Department [address] [place] [address] Emergency Department Summary 01/21/23 MR#: [id number] Acct: [id number] Name: RICHARD ROY Rep #:[id number] : 1945 77 From: Dandy Sauer MD PCP: Dr. Luis Caldera MD Status :ADM IN Location: ICU CVICU20 2-1 HPI History of Present Illness Chief Complaint: Syncope Informant: spouse/S.O., EMS and SNF Narrative Narrative: Patient sent from [facility] where he has been for several weeks for short-term rehab. Started getting confused within the past month or so, wasliving at home with his prior to that. Today apparently became unresponsive/syncopal with the nurses at the facility and according to staff prior to sending him here, had some black tarry stool. History is extremely limited from the patient he is able to speak but does not remember anything about events this morning and denies having pain anywhere right now. The states that when they sat him up earlier he complained about back pain, but he denies it right now. 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 Upper gastrointestinal bleed Ureterolithiasis Valvular heart disease Home Medications metoprolol succinate 200 mg tablet,extended release 24 hr 200 mg PO DAILY blood pressure 09/16/13 [History Last Taken 01/04/23] losartan 50 mg tablet 50 mg PO DAILY blood pressure 03/24/18 [History Last Taken 01/04/23] metformin 500 mg 24 hr tablet,extended release 1,000 mg PO BID diabetes 03/24/18[History Last Taken 01/04/23] atorvastatin 40 mg tablet 40 mg PO QHS cholesterol 05/22/18 [History Last Taken 01/03/23] warfarin 5 mg tablet (Jantoven) 7.5 mg PO SUTUTHFRSA anticoagulant 05/22/18 [History Last Taken 01/04/23] tamsulosin 0.4 mg capsule 0.4 mg PO QHS PROSTATE 03/02/22 [History Last Taken 01/03/23] warfarin 5 mg tablet 10 mg PO MOWE 03/02/22 [History Last Taken 01/02/23] amlodipine 2.5 mg tablet 2.5 mg PO DAILY 30 days #30 tabs 07/11/22 [Rx Last Taken 01/04/23] insulin glargine 100 unit/mL (3 mL) subcutaneous pen (Lantus Solostar U-100 Insulin) 12 unit (0.12 mL) subcut DAILY diabetes #15 mL 07/11/22 [Rx Last Taken 01/04/23] acetaminophen 325 mg tablet 650 mg (2 x 325 mg) PO Q4H PRN PRN Fever, pain 1- 04/23 #0 tabs 01/08/23 [Rx Last Taken Unknown] donepezil 5 mg tablet (Aricept) 5 mg PO QHS #1 TAB 01/08/23 [Rx Last Taken Unknown] duloxetine 30 mg capsule,delayed release (Cymbalta) 30 mg PO UD #1 cap 01/08/23 [Rx Last Taken Unknown] melatonin 3 mg tablet 3 mg PO QHS PRN PRN Insomnia #1 TAB 01/08/23 [Rx Last Taken Unknown] Allergy/AdvReac Type Severity Reaction Status Date / Time propofol AdvReac Other Verified 01/21/23 08:23 Family History Mother Heart disease Diabetes Hypertension Father Heart disease Surgical History H/O aortic valve repair History of foot surgery History of thoracic aortic aneurysm repair Hx of abdominal surgery Social History (Updated 01/21/23 @ 09:[address] Dandy Sauer MD) housing: senior living current occupational status: retired Smoking Status: Never smoker alcohol intake: never substance use type: does not use ROS ROS ED Review of Systems ROS Unobtainable: due to mental condition and due to mental status Cardiovascular Cardiovascular: Denies chest pain Respiratory/Chest Respiratory/Chest: Denies dyspnea Gastrointestinal Gastrointestinal: Denies abdominal pain or nausea Musculoskeletal Musculoskeletal: Denies neck pain Neurologic Neurologic: Denies headache(s) EXAM Physical Exam Const Vital Signs: 01/21/23 08:21 01/21/23 08:25 Temperature 96.4 F L Temperature Source Temporal Pulse Rate 99 Respiratory Rate 20 H Respiratory Effort Normal Non-Labored Respiratory Pattern Tachypnea Blood Pressure 109/72 Blood Pressure Mean 84 Pulse Ox 97 Oxygen Delivery Method Room Air Positive well nourished and well developed Constitutional Narrative: Appears malaised, but eyes open to voice, maintains level of alertness, no distress General Appearance ED: well developed and NAD HEENT Reports moist mucous membranes normocephalic and atraumatic Eyes PERRL and EOMs intact bilaterally Neck full ROM and supple Chest Wall inspection of chest normal and palpation of chest normal Chest Narrative: Healed surgical incision midline chest Resp normal respiratory effort and clear to auscultation bilaterally Cardio regular rate, regular rhythm and no murmurs Rate: tachycardic and other Other Details: Occasionally irregular GI non-tender and non-distended Auscultation: normoactive bowel sounds Palpation: soft Back/Spine no CVA tenderness Back/Spine Narrative: With assistance sitting up, patient reports no pain and there is no areas of tenderness. General Back: other FROM Extremity normal to inspection General Extremety ED: Yes edema; Negative for pulses abnormal or tenderness General Extremity: edema bilateral lower extremity Details: mild; Negative for pulses abnormal Neuro CN's II-XII intact bilaterally and no sensory deficits noted Neuro Narrative: Oriented to person only. Disoriented to age, month, year, place including the state. Downgoing toes bilaterally Anthony Coma Scale: document GCS findings To Voice Obeys Commands Confused 13 Sensorium / Orientation: awake, alert and orientation impaired Motor Exam: general weakness and clonus absent Skin no rashes or lesions noted and no wounds MDM MDM MDM Narrative Medical decision making narrative: I did a rectal exam, it is melanotic with no gross blood, and Hemoccult positiveafter that test result returned from the lab. Also consistent with upper GI bleeding is his significantly elevated BUN and his hemoglobin of 10.7 down from 13.1 last month. He is anticoagulated on warfarin, still awaiting PT/INR to return, but in the meantime giving him IV fluids to keep him from becoming hypotensive given that his blood pressure is borderline at 102/70, IV Protonix bolus, followed by IV Protonix drip. Patient has not been vomiting here, will given prophylactic Zofran given that this is likely an upper GI bleed. Discussed with JOHN Hackett, hospitalist, and I discussed with the at length. She was counseled on blood transfusion pros and cons, which I suspect he will need but does not necessarily need emergently at this time, he is typed and screened, she consents to blood if he should needed, and given his borderline hemodynamics and clinically appears very ill, and being anticoagulated I think admitted into the ICU is most proper at this time. GI requested octreotide which will be added. INR returned at 4.2, will order vitamin K 5 mg IV. Lab Data Attestation: I reviewed the patient's lab results. Labs: Laboratory Results - last 24 hr 01/21/23 08:40 WBC 22.4 H RBC 3.96 L Hgb 10.7 L Hct 34.3 L MCV 86.6 MCH 27.0 MCHC 31.2 L RDW Std Deviation 46.6 H RDW Coeff of Nathaniel 14.7 H Plt Count 389 MPV 10.7 Immature Gran % (Auto) 2.000 H Neut % (Auto) 87.8 H Lymph % (Auto) 7.5 L [place] % (Auto) 2.4 Eos % (Auto) 0.0 Baso % (Auto) 0.3 Absolute Neuts (auto) 19.7 H Absolute Lymphs (auto) 1.69 Nucleated RBC % 0 PT 41.4 H INR 4.2 H* Sodium 138 Potassium 5.2 H Chloride 109 H Carbon Dioxide 12.0 L Anion Gap 17 H BUN 125 H* Creatinine 1.99 H Estim Creat Clear Calc 36.25 Est GFR (MDRD) Af Amer 42 L Est GFR (MDRD) Non-Af 35 L BUN/Creatinine Ratio 62.8 H Glucose 248 H Lactic Acid 7.9 H* Calcium 9.7 Total Bilirubin 0.30 AST 9 L ALT 25 Alkaline Phosphatase 76 Troponin I High Sens 23 Total Protein 5.4 L Albumin 2.7 L Globulin 2.7 Albumin/Globulin Ratio 1.0 Blood Type A POSITIVE Antibody Screen NEGATIVE Rhythm Strip Rhythm Strip: Sinus Rhythm Rate: 90 Ectopy: PAC(s) EKG Initial EKG: Attestation: I personally reviewed and interpreted this EKG as follows: Interpretation: Sinus Rhythm, No Acute Injury Pattern, RBBB and Non-Specific ST Changes Prior EKG tracings: available for review Prior: Unchanged Management Discussion w/another healthcare provider: Hospitalist and Decorating Machine Operator (JOHN) Critical Care Time Critical Care Time: Yes Critical care time (excluding procedures): 30-74 minutes (33 min), Including time spent:, Discussing w/Patient &/or Family/Material Clerk, Discussing w/Consultants, Arranging Admission or Transfer and Performing Direct Patient Care at Bedside Discharge Plan Dx/Rx/DC Orders Clinical Impression: Acute encephalopathy, Syncope, Supratherapeutic INR, ABLA (acute blood loss anemia), Upper gastrointestinal bleeding, Warfarin-induced coagulopathy Disposition Disposition: [facility] Capacity Capacity Assessment Tool Can the patient make a choice & communicate that choice?: No Can the patient understand benefits, risks and alternatives?: No Can the patient make a logical, rational choice?: No Is there an impending, emergent risk to the patient?: Yes Is there a Surrogate Available?: Yes i.e. close relative (spouse, child, parent, sibling)?: Yes () What to do if you have Problems For any increased pain, shortness of breath, bleeding, nausea or vomiting, chestpain, or any unexpected problems, contact your Primary Care Provider. Call [facility] ([phone]) or report to the closest Emergency Room. Call 911 if necessary. 01/21/23 1725 <Electronically signed by Dandy Sauer MD> Cosigner Signature (if applicable): CC: Dr. Luis Caldera MD ~ Signed [facility] Work Phone: [phone]) 166-932807-10-2023 History and physical note Author Ryan Tinoco [facility] January 21, 2023 12:24pm Note Date/Time January 21, 2023 11:5 8am [facility] Medical Records Department [address] [place] [address] H&P Exam - Hospitalist 01/21/23 1156 MR#: [id number] Acct: [id number] Name: RICHARD ROY Rep #:[id number] : 1945 77 From: Ryan Delgado PCP: Dr. Luis Caldera MD Status :ADM IN Location: ICU CVICU20 2-1 HPI - General General Date of Admission: 01/21/23 Date of Service: 01/21/23 Chief Complaint: Patient was unresponsive in the morning. Had large black tarrystool. HPI Narrative RICHARD ROY, is a 77 M gentleman was brought from [facility] to senior living for syncopal episodes and black tarry stool. Prior to that he was admitted between 01/05 to 01/08/23 for confusion and generalized weakness, stroke was ruledout and was sent to senior living there. Patient is not a good historian. As per the nursing report, patient had multiple short syncopal episodes in the morning after he had a large black tarry stool. Patient had been having dark stool for last couple days in senior living. Patient does not remember himself from dementia/depression. His was also present in ED and said nursing homedoes not tell her much. Patient is states that he was dizzy and lightheaded in the morning. Dizziness has resolved. BP was low 190/72, heart rate 99, tachypneic 20/min. H&H 10.7/34%. Mild leukocytosis. Platelet count normal. Lactic acid 7.9. 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 Upper gastrointestinal bleed Ureterolithiasis Valvular heart disease Home Medications metoprolol succinate 200 mg tablet,extended release 24 hr 200 mg PO DAILY blood pressure 09/16/13 [History Last Taken 01/20/23] losartan 50 mg tablet 50 mg PO DAILY blood pressure 03/24/18 [History Last Taken 01/20/23] atorvastatin 40 mg tablet 40 mg PO QHS cholesterol 05/22/18 [History Last Taken 01/20/23] warfarin 5 mg tablet (Jantoven) 7.5 mg PO SUTUWETHFRSA anticoagulant 05/22/18 [History Last Taken 01/20/23] tamsulosin 0.4 mg capsule 0.4 mg PO QHS PROSTATE 03/02/22 [History Last Taken 01/20/23] warfarin 5 mg tablet 10 mg PO MO BLOOD THINNER 03/02/22 [History Last Taken 01/02/23] amlodipine 2.5 mg tablet 2.5 mg PO DAILY BP 30 days #30 tabs 07/11/22 [Rx Last Taken 01/20/23] insulin glargine 100 unit/mL (3 mL) subcutaneous pen (Lantus Solostar U-100 Insulin) 12 unit (0.12 mL) subcut DAILY diabetes #15 mL 07/11/22 [Rx Last Taken 01/20/23] acetaminophen 325 mg tablet 650 mg (2 x 325 mg) PO Q4H PRN PRN PAIN AND FEVER #0tabs 01/08/23 [Rx Last Taken 01/19/23] donepezil 5 mg tablet (Aricept) 5 mg PO QHS DEMENTIA #1 TAB 01/08/23 [Rx Last Taken 01/20/23] melatonin 3 mg tablet 3 mg PO QHS PRN PRN Insomnia #1 TAB 01/08/23 [Rx Last Taken Unknown] cholecalciferol (vitamin D3) 1,250 mcg (50,000 unit) tablet 1,250 mcg PO MO SUPPLEMENT 01/21/23 [History Last Taken 01/14/23] donepezil 10 mg tablet 10 mg PO QHS DEMENTIA 01/21/23 [History Last Taken 01/20/23] duloxetine 60 mg capsule,delayed release (Cymbalta) 60 mg PO DAILY DEPRESSION 01/21/23 [History Last Taken 01/20/23] insulin lispro 100 unit/mL subcutaneous pen (Humalog KwikPen (U-100) Insulin) See Protocol subcut ACHS DM 01/21/23 [History Last Taken 01/21/23] metformin 1,000 mg tablet 1,000 mg PO BID DM 01/21/23 [History Last Taken 01/20/23] Allergy/AdvReac Type Severity Reaction Status Date / Time propofol AdvReac Other Verified 01/21/23 08:23 Family History Mother Heart disease Diabetes Hypertension Father Heart disease Surgical History H/O aortic valve repair History of foot surgery History of thoracic aortic aneurysm repair Hx of abdominal surgery Social History housing: senior living current occupational status: retired Smoking Status: Never smoker alcohol intake: never substance use type: does not use ROS ROS Narrative 14 system ROS limited as patient does not remember well possible early dementia. Constitutional: Reports fatigue and weakness. No fever. HEENT: Reports systems reviewed and no addt'l complaints, except as documented Respiratory/Chest: No acute shortness of breath or respiratory distress or wheezing. CVS: Syncopal episodes. No chest pain/pressure Gastrointestinal: Denies coffee ground emesis, or nausea. No abdominal pain. Rest as described in HPI Genitourinary: Denies burning urination or new urinary tract symptoms Musculoskeletal: Chronic disequilibrium and arthritis. Denies acute joint pain or limited range of motion. No acute injury Neurologic: Denies seizure-like symptoms. skin: No ulcer. No rash Endocrinology: Reports systems reviewed and no addt'l complaints, except as documented Hematologic/Lymphatic: Reports systems reviewed and no addt'l complaints, exceptas documented Rest 14 ROS are negative except as mentioned in HPI Vital Signs Vital Signs Vital Signs: 01/21/23 08:21 01/21/23 08:25 01/21/23 10:53 Temperature 96.4 F L Temperature Source Temporal Pulse Rate 99 83 Respiratory Rate 20 H 27 H Respiratory Effort Normal Non-Labored Respiratory Pattern Tachypnea Blood Pressure 109/72 105/54 L Blood Pressure Mean 84 71 Pulse Ox 97 93 Oxygen Delivery Method Room Air Room Air 01/21/23 11:32 Temperature 97.8 F Temperature Source Temporal Pulse Rate 83 Respiratory Rate 23 H Respiratory Effort Respiratory Pattern Blood Pressure 133/55 H Blood Pressure Mean 81 Pulse Ox 93 Oxygen Delivery Method Room Air Weight Weight: 219 lb 2.232 oz Body Mass Index (BMI) 28.9 Physical Exam Narrative General: Alert, Oriented x3, Cooperative. BMI 28.9 KG per square meter. HEENT: Atraumatic, PERRLA, EOMI, Normocephalic Oral: Oral mucosa dry. Dry crust on the posterior tongue. No Gingival or Mucosal Lesions/ Ulcerations Neck: Supple, No JVD, Negative Carotid Bruits Lungs: Air entry diminished in bilateral lung bases. No crepitation/rhonchi Cardiovascular: Regular rate, Regular Rhythm, Normal S1, Normal S2, pansystolic murmur over cardiac apex. Abdomen: Bowel Sounds Present, Soft, Non Tender, Non-Distended : No renal angle tenderness. No suprapubic tenderness. Extremities: No edema, Capillary Refill Less than 3 Seconds Skin: No rashes, No breakdown Musculoskeletal: Muscle strength 4+/5 at knee and hip joints. ROM restricted. No Tenderness to Palpation of Joints or Extremities Neurological: Cranial nerves II-XII grossly intact, DTR 2+/4 and Symmetrical, Neuro grossly intact Psych/Mental Status: Flat affect. Amnesia/cognitive deficit. Results Lab / Micro Data 01/21/23 08:40 01/21/23 08:40 Labs: Laboratory Results - last 24 hr 01/21/23 08:40: WBC 22.4 H, RBC 3.96 L, Hgb 10.7 L, Hct 34.3 L, MCV 86.6, MCH 27.0, MCHC 31.2 L, RDW Std Deviation 46.6 H, RDW Coeff of Nathaniel 14.7 H, Plt Count 389, MPV 10.7, Immature Gran % (Auto) 2.000 H, Neut % (Auto) 87.8 H, Lymph % (Auto) 7.5 L, [place] % (Auto) 2.4, Eos % (Auto) 0.0, Baso % (Auto) 0.3, Absolute Neuts (auto) 19.7 H, Absolute Lymphs (auto) 1.69, Nucleated RBC % 0, PT 41.4 H, INR 4.2 H*, Sodium 138, Potassium 5.2 H, Chloride 109 H, Carbon Dioxide 12.0 L, Anion Gap 17 H, BUN 125 H*, Creatinine 1.99 H, Estim Creat Clear Calc 36.25, EstGFR (MDRD) Af Amer 42 L, Est GFR (MDRD) Non-Af 35 L, BUN/Creatinine Ratio 62.8 H, Glucose 248 H, Lactic Acid 7.9 H*, Calcium 9.7, Total Bilirubin 0.30, AST 9 L,ALT 25, Alkaline Phosphatase 76, Troponin I High Sens 23, Total Protein 5.4 L, Albumin 2.7 L, Globulin 2.7, Albumin/Globulin Ratio 1.0, Blood Type A POSITIVE, Antibody Screen NEGATIVE 01/21/23 11:00: Urine Color Yellow, Urine Clarity Clear, Urine pH 5.0, Ur Specific [place] 1.020, Urine Protein 15 H, Urine Glucose (UA) 100 H, Urine Ketones 15 H, Urine Occult Blood Negative, Urine Nitrite Negative, Urine Bilirubin 1 H, Urine Urobilinogen Normal, Ur Leukocyte Esterase Negative, Urine RBC 0 SEEN, Urine WBC 0-5 SEEN, Ur Squamous Epith Cells 0-5 SEEN, Urine Bacteria0 SEEN, Urine Mucus 0 SEEN Micro: Microbiology 01/21/23 09:15 Stool Stool Occult Blood (KLAUS) - Final Occult Blood Positive Rhythm Strip Rhythm Strip: Sinus Rhythm Rate: 90 Ectopy: PAC(s) Radiology Impression Brain CT 01/21/23 09:00 IMPRESSION: Chronic involutional changes of the brain. Partial opacification of the right maxillary and right frontal sinus Electronically Signed: Ravindra Sierra MD at 10:43 EDT , Chest X-Ray 01/21/23 09:30 IMPRESSION: No acute abnormality is seen. Electronically Signed: Ravindra Sierra MD at 10:30 EDT , Assessment & Plan Assessment/Plan (1) Upper gastrointestinal bleeding: (2) ABLA (acute blood loss anemia): PLAN: Plan This is a 77-year-old gentleman being admitted from [facility] for multiple episodes of syncope and upper GI bleed 1. Acute blood loss anemia and hypotension due to upper GI bleed: Patient is being admitted in ICU. His baseline hemoglobin is 13.1 which dropped to 10.7. BP was low 108/70 with baseline 143/64. Patient was resuscitated with IV fluid last blood pressure 133/55. 2 units PRBC typed and crossmatched. Keep NPO. Continue IV fluid Ringer lactate. Patient started on IV pantoprazole drip afterbolus and octreotide drip. GI consulted. H&H monitoring. Does not require blood transfusion at present. Patient has history of gastric ulcer in the past when he had EGD in early . Had last colonoscopy less than a year was normal as per the . His medical care is under [facility]. 2 Syncopal episode most likely due to hypotension/GI bleed: As per the nursing staff patient had multiple shorts, brief syncopal episodes with intermittent confusion in between. Patient had echo in June 2022 reported EF 65% moderate concentric LVH. Mild MR. Does not need repeat echo. Orthostatic BP tomorrow AM. 3. Essential hypertension and dyslipidemia-hold antihypertensive medications. Statin when oral is allowed. 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 #5 DVT on warfarin with supratherapeutic INR: Patient on warfarin. INR 4.2. Vitamin K 5 mg IV given in ED. Repeat INR tomorrow AM. #6 BPH-patient is on Flomax, on hold #7 acute debility, disequilibrium: PT and OT ordered. #8 possible depression versus early dementia: Patient is on antidepressant and Aricept. Will resume once oral is allowed. VTE prophylaxis: Pharmacological prophylaxis contraindicated in view of GI bleed, acute blood loss anemia and supratherapeutic INR. Bilateral SCDs. Living will/advanced directive/end of life care: Patient does have living will or advanced directive. 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 After discussion of benefits/risks procedures involved with full code, DNR CC arrest and DNR CC, the patient and his opted for full code. Patient does want artificial life support including intubation, tube feed, ventilator and/chest compression, central venous catheter, vasopressor and DC shock if needed Total time spent in [id number] encounter in discussion of advanced directive 17 minutes. Microbiology Past 72 Hours 01/21/23 09:15 Stool Stool Occult Blood (KLAUS) - Final Occult Blood Positive Laboratory Results 01/21/23 08:40: WBC 22.4 H, RBC 3.96 L, Hgb 10.7 L, Hct 34.3 L, MCV 86.6, MCH 27.0, MCHC 31.2 L, RDW Std Deviation 46.6 H, RDW Coeff of Nathaniel 14.7 H, Plt Count 389, MPV 10.7, Immature Gran % (Auto) 2.000 H, Neut % (Auto) 87.8 H, Lymph % (Auto) 7.5 L, [place] % (Auto) 2.4, Eos % (Auto) 0.0, Baso % (Auto) 0.3, Absolute Neuts (auto) 19.7 H, Absolute Lymphs (auto) 1.69, Nucleated RBC % 0, PT 41.4 H, INR 4.2 H*, Sodium 138, Potassium 5.2 H, Chloride 109 H, Carbon Dioxide 12.0 L, Anion Gap 17 H, BUN 125 H*, Creatinine 1.99 H, Estim Creat Clear Calc 36.25, EstGFR (MDRD) Af Amer 42 L, Est GFR (MDRD) Non-Af 35 L, BUN/Creatinine Ratio 62.8 H, Glucose 248 H, Lactic Acid 7.9 H*, Calcium 9.7, Total Bilirubin 0.30, AST 9 L,ALT 25, Alkaline Phosphatase 76, Troponin I High Sens 23, Total Protein 5.4 L, Albumin 2.7 L, Globulin 2.7, Albumin/Globulin Ratio 1.0, Blood Type A POSITIVE, Antibody Screen NEGATIVE 01/21/23 11:00: Urine Color Yellow, Urine Clarity Clear, Urine pH 5.0, Ur Specific [place] 1.020, Urine Protein 15 H, Urine Glucose (UA) 100 H, Urine Ketones 15 H, Urine Occult Blood Negative, Urine Nitrite Negative, Urine Bilirubin 1 H, Urine Urobilinogen Normal, Ur Leukocyte Esterase Negative, Urine RBC 0 SEEN, Urine WBC 0-5 SEEN, Ur Squamous Epith Cells 0-5 SEEN, Urine Bacteria 0 SEEN, Urine Mucus 0 SEEN Charges/Coding Visit Charges Inpatient E&M: 94095 Init Hosp L3 Procedures Hospitalists Procedures: 48605 Advncd Care Plan 30 Min 01/21/23 1223 <Electronically signed by Ryan Tinoco MD> Cosigner Signature (if applicable): CC: Dr. Luis Caldera MD; Dr. Ryan Tinoco MD~ Signed ADDENDUM by Dr. Ryan Tinoco MD on 01/21/23 at 1224 Addendum Patient has lactic acidosis most likely due to hypoperfusion from GI bleed and hypotension. Patient does not have confirmed or suspected focus on infection therefore I do not think patient has sepsis or septic shock. 01/21/23 1224<Electronically signed by Ryan Tinoco MD> Cosigner Signature (if applicable): cc: Dr. Luis Caldera MD; Dr. Ryan Tinoco MD ~* Signed [facility] Work Phone: 1(116) 363-778106-23-2023 Miscellaneous Notes* Telephone Encounter - Amada Cohn Ma - 01/04/2023 11:03 AM EDT Pt was seen in office today. Amada Cohn Ma * Telephone Encounter - Tamika Grijalva LPN - 01/04/2023 8:26 AM EDT Attempted to call patient's spouse but no answer. Unable to leave message. Attempt call back. * Telephone Encounter - Abdulaziz Caldera MD - 01/04/2023 8:14 AM EDT Patient has OV scheduled with me today for acute confusion/delerium. Recommended he go to the ED yesterday for emergent evaluation. Please call to see how patient is doing and if confusion persists/worsens would again recommend ER evaluation. documented [facility] Miscellaneous Notes* Telephone Encounter - Tamika Grijalva LPN - 01/04/2023 8:27 AM EDT No return call received, however, noted patient now scheduled for OV with PCP for 01/04/23. * Telephone Encounter - Amada Cohn Ma - 01/03/2023 4:09 PM EDT Tried to reach pt EC Ciarra, makayla still just rings. Amada Cohn Ma * Telephone Encounter - Amada Cohn Ma - 01/03/2023 3:07 PM EDT Tried to reach ciarra but line just rings. No answer or machine to leave message. Amada Cohn Ma * Telephone Encounter - Abdulaziz Caldera MD - 01/03/2023 2:55 PM EDT If he has acute worsening of his memory or confusion would recommend ER for evaluation of possible infectious cause, stroke, or hemorrhage. * Telephone Encounter - Vannessa Jorge RN - 01/03/2023 2:35 PM EDT Patient's calling to let provider know patient [...] treadmill when was not home. He thought thatPT instructed 6 miles of amb. PT had [...] message referring physician regarding this concern. Justina Escoto, PT This nurse scheduled appointment with PCP on 01/04. Vannessa Jorge RN documented in this encounterC[facility]06-[facility]23 History of Present illness Narrative* Justina Escoto, PT - 01/03/2023 12:54 PM EDT Episode Visit Count: 10 Therapist That Will Accept/Oversee The Plan Of Care: Justina Escoto Start of Care Date: 11/29/22 Onset Date: 09/29/22 Plan of Care Certification Date: 11/29/22 Next Certification Due Date: 01/03/23 [facility] PHYSICAL THERAPY DISCONTINUANCE OF CARE PLAN OF CARE UPDATE: Assessment: Richard Roy is discontinued from Physical Therapy services due to Patient/Clinicianmutual decision to discontinue current plan of care.. Patient was seen for 10 visits from Start of Care Date: 11/29/22 to 01/03/2023 and treatment included: Therapeutic exercise, Neuromuscular re-education, Therapeutic activities, Self-[facility] management, and Gait training. Goals for Episode [...] PARTIALLY MET, improved 8 to 9 reps [place] in home exercise program including cardiovascular exercise. [...] treadmill when was not home. He thought thatPT instructed 6 miles of amb. PT had [...] tasks in the home Functional Limitations: standing (I cant really say any certain things.) Pain: Pain Pain Level: 0 Pain Location: [...] impairment- performs R/L head turns with moderate changein gait velocity, slows down, staggers but recovers, [...] 5 Justina Escoto PT documented in this encounterC[facility]06-19-[facility] History of Present illness Narrative* Justina Escoto PT - 12/31/2022 11:01 AM EDT Episode Visit Count: 9 Therapist [...] get exercises going today.He states that he isso-so today and denies any falls. Pain: OBJECTIVE [...] sit, stating his shoulders were tired . Aspt became more fatigued, shuffling occured. Verbal cueing to take larger steps. Skilled Intervention: Patient was provided contact guard assistance during pre- gait/gait training to prevent falls and insure safety. Facilitated proper gait cycle with the use of verbal and visual cues for correction of gait deviations identified in the objective section above. Gait belt utilized during session for safety. Billing Therapeutic Exercise Treatment Minutes: 10 Neuromuscular Re-Education Treatment Minutes: 28 Gait Training Treatment Minutes: 4 Total Treatment Time Minutes (timed/untimed): 42 Ira Ramos, SWITCHGEAR REPAIRER Justina Escoto PT documented in this encounterCleveland Clinic [facility]06-15-2023 History of Present illness Narrative* Justina Escoto PT - 12/27/2022 11:02 AM EDT Episode Visit Count: 8 Therapist That Will [...] task with exercises. The patient will continue tobenefit from ongoing skilled physical therapy to progress [...] Treatment Time Minutes (timed/untimed): 40 Ira Ramos, SWITCHGEAR REPAIRER Justina Escoto, PT documented in this encounterCleveland [facility]06-12-2023 History of Present illness Narrative* Justina Escoto, PT - 12/24/2022 1:38 PM EDT Episode Visit Count: 7 Therapist That [...] by chairs during the remaining balance exercises thisvisit due to fatigue although encouraged by the [...] pt. demonstrates confusion and she has been takingnotes reguarding his behavior and memory. Pain: Pain [...] 40 Justina Escoto PT documented in this encounterC[facility]06-05-2023 History of Present illness Narrative* Justina Escoto PT - 12/17/2022 3:14 PM EDT Episode Visit Count: 6 Therapist That Will [...] exercises in regards to decreasing fatigue , includingbalance, increase ease of ADL, and ROM and [...] Total Treatment Time Minutes (timed/untimed): 40 Justina Escoot PT documented in this encounterCleveland [facility]06-02-2023 History of Present illness Narrative* Justina Escoto PT - 12/14/2022 2:37 PM EDT Episode Visit Count: 5 Therapist [...] early due to pt. early arrival. Pt. alejandroiesfalls. Pain: Pain Pain Level: 0 Pain Location: [...] exercises in regards to decreasing fatigue , includingbalance, increase ease of ADL, and ROM and [...] 40 Justina Escoto PT documented in this encounterCleveland [facility]05-31-2023 History of Present illness Narrative* Justina Escoto PT - 12/12/2022 5:45 PM EDT Episode Visit Count: 4 Therapist That Will Accept/Oversee The Plan Of Care: Justina Escoto Start of Care Date: 11/29/22 Onset Date: 09/29/22 Plan of Care Certification Date: 11/29/22 Next Certification Due Date: 01/03/23 RE[facility]AB[facility]ATION [facility]TS THERAPY PHYSICAL THERAPY TREATMENT NOTE ASSESSMENT: Richard Bonilla Stephon tolerated the session with fatigue. He demonstrated [...] early due to pt. early arrival. Pt. deniespain or falls. states pt. has stumbled over boxes without fall in the home, but pt. has gottenon a tractor without assistance. Pain: Pain Pain [...] exercises in regards to decreasing fatigue , includingbalance, increase ease of ADL, and ROM and [...] Intervention: Patient was provided minimal assistance during pre- gait/gait training to prevent falls and insure safety. [...] 40 Justina Escoto PT documented in this encounterCleveland Clinic [facility]05-09-2023 Miscellaneous Notes* Telephone Encounter - GABI Link - 11/20/2022 9:19 AM EDT OMAR 11/19/22 Appointment scheduled 02/05/23 Please advise. Thank you. GABI Link * Telephone Encounter - Nola Castro Pss - 11/20/2022 8:58 AM EDT Patient is currently out of this medication [...] to the pharmacy. Please call patient at: [phone]. Nola Lockhart documented in this encounterCleveland Clinic [facility]05-08-2023 Miscellaneous Notes* Telephone Encounter - Tania Heller LPN - 11/19/2022 4:36 PM EDT Pt notified of results and provider message. Pt voiced understanding. Tania Heller LPN * Telephone Encounter - Abdulaziz Caldera MD - 11/19/2022 3:55 PM EDT INR therapeutic. Continue current coumadin dosage and follow up in 4 weeks. * Telephone Encounter - Valencia Pascual MA - 11/19/2022 3:40 PM EDT Current INR: 3.2 Current dose: 10 mg Mon and Wed and 7.5 mg all other days Last INR: PT INR 2.5 10/22/2022 Current dose of coumadin is: 10mg M & W, 7.5mg all other days. Last date of dose change: unknown. Previous INR (date and result): 09/24/2022 2.5 documented in this encounterCleveland Clinic [facility]04-10-2023 History of Present illness Narrative* Zachary Obregon - 10/22/2022 3:34 PM EDT Last saw Dr. Caldera: 08/09/22 Subjective: Patient [...] polyneuropathy associated with type 2 diabetes mellitus ([facility]) Plan: Patient was seen and evaluated. Nails [...] Patient is to RTC in 3-4 months. Zachary Obregon DPM * Blaire Sandoval RN - 10/22/2022 3:07 PM EDT Patient presents with: Left Foot - Established Patient, Diabetic Foot Care Right Foot - Established Patient, Diabetic Foot Care documented in this encounterCleveland Clinic [facility]04-10-2023 Instructions* Patient Instructions* Zachary Obregon - 10/22/2022 3:34 PM EDT Diabetes [...] (or decreased sensation in your feet) a distillery laborer should always cut your toenails. Be Careful [...] Go to your health care provider or distillery laborer to treat these conditions. documented in this encounterCleveland Clinic [facility]03-14-2023 Miscellaneous Notes* Telephone Encounter - Rebecca Esteban LPN - 09/25/2022 11:02 AM EDT Patient notified. Voices understanding. Rebecca Esteban LPN * Telephone Encounter - Abdulaziz Caldera MD - 09/25/2022 10:51 AM EDT INR therapeutic. Continue current coumadin dosage and follow up in 4 weeks. * Telephone Encounter - Rebecca Esteban LPN - 09/25/2022 10:40 AM EDT Last INR: PT INR 2.5 09/24/2022 Current dose of coumadin is: 10mg M & W, 7.5mg all other days. Last date of dose change: unknown. Previous INR (date and result): 08/27/2022 3.3 Additional Clinical Information or narrative: no documented in this encounterCleveland Clinic [facility] Hospital02-24-2023 Miscellaneous Notes* Telephone Encounter - Suzanne Connelly RN - 09/07/2022 1:11 PM EST Call to patient. Provided number to schedule- [phone]. Offered to transfer patient to schedulebut patient declined to schedule stating he could call later. PAOLA Potter, RN September 07, 2022 1:11 PM * Telephone Encounter - Jojo Kaur MD - 09/07/2022 11:39 AM EST Suzanne please let patient know how to proceed with driving evaluation I already put the order in computer documented in this encounterCleveland Clinic Ment[facility] Hospital02-24-2023 History of Present illness Narrative* Jojo Kaur MD - 09/07/2022 11:19 AM EST Images from the original note were not [...] evaluation of folllow up after hospitalization in [facility]. he was admitted because of syncopal episode [...] covid hit they went to [facility] and was staying in the house [...] Benign-Dr. 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 Dr. Obregon at [facility] COLONOSCOPY 10/10/2021 repeat in 3 years [...] 251- 300=8 units, 301-350=12 units, 351-400=15 units. Max dose [...] one time a week. blood sugar diagnostic ([employer] (Inspect Manager)UCH ULTRA TEST) test strip Test blood sugar(s) [...] 64 Resp 16 Ht 185.4 cm (6' 1) Wt 113.4 kg (250 lb) SpO2 99% [...] GAIT: Wide based gait ,unsteady Cannot tandem Jojo Kaur M.D. [facility] [place] Department of Neurology Total time in minutes [...] at night. documented in this encounterCleveland Clinic [facility] Hospital02-14-2023 Miscellaneous Notes* Telephone Encounter - Tamika Grijalva LPN - 08/28/2022 11:26 AM EST Phoned patient and updated him with provider's message. Patient voiced understanding. * Telephone Encounter - Abdulaziz Caldera MD - 08/28/2022 10:54 AM EST INR therapeutic. Continue current coumadin dosage and follow up in 4 weeks. * Telephone Encounter - Tania Heller LPN - 08/28/2022 10:46 AM EST Last INR: PT INR 3.3 08/27/2022 Current dose of coumadin is: 10 mg M&W, 7.5 mg other days. Last date of dose change: unknown. Previous INR (date and result): 08/13/22- 2.7 Additional Clinical Information or narrative: no Tania Heller LPN documented in this encounterCleveland Clinic [facility] Hospital02-02-2023 Miscellaneous Notes* Telephone Encounter - Grecia Bustillo - 08/16/2022 1:09 PM EST Patient has been identified by name and [...] notify patient. Grecia Bustillo documented in this encounterCleveland Clinic [facility] Hospital01-31-2023 Miscellaneous Notes* Telephone Encounter - Tamika Grijalva LPN - 08/14/2022 1:07 PM EST Phoned patient and updated him with results and recommendations. Patient voiced understanding. * Telephone Encounter - Js Ashby DO - 08/14/2022 12:35 PM EST Continue same dose, recheck INR 2 weeks Js Ashby DO * Telephone Encounter - Rebecca Esteban LPN - 08/14/2022 8:12 AM EST Last INR: PT INR 2.7 08/13/2022 Current dose of coumadin is: 10mg mon & wed, 7.5mg all other days. Last date of dose change: unknown. Previous INR (date and result): 3.4 07/30/2022 Additional Clinical Information or narrative: no documented in this encounterCleveland Clinic [facility]01-26-2023 History of Present illness Narrative* Abdulaziz Caldera MD - 08/09/2022 4:31 PM EST Chief Complaint Patient presents with: Follow Up: 4 week DM HPI Richard Roy is a 76 year old male who presents here today for Above Complaints. DIABETES MELLITUS: Mr. Roy was last seen 5 months ago. Patient's Lantus insulin was reduced whileinpatient for NSTEMI last month. Since our last [...] 12 months ago. Going to schedule appointment [facility]. 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 Asymtpomatic still on medical management. Has completed his home PT/OT. Echo and stress test at [facility] were negative/normal. Has follow up with Dr. Huston on 12/03. questioning if they should be seen sooner. BP well controlled with current regimen <130/80. BPH: With use of flomax, patient is getting up once at night to urinate. Has weak stream, but denies straining, incomplete emptying, dysuria, hematuria, incontinence. Followed up with ENT in [place] for chronic frontal sinusitis on CT/MRI going back to February. Told this did not require treatment. F/u PRN. Denies sinus pressure/pain/congestion. Past medical history, appointments, medications, allergies reviewed. Previous Medical History PAST MEDICAL HISTORY Diagnosis Date BPH (benign prostatic hyperplasia) Cholelithiasis 09/25/2013 Chronic neutrophilia Benign-Dr. 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 Dr. Obregon at [facility] COLONOSCOPY 10/10/2021 repeat in 3 years [...] by mouth once daily. blood sugar diagnostic ([employer] ULTRA TEST) test strip Test blood sugar(s) 3 times daily. Dx: E11.49. Insulin: Yes Docusate Sodium 100 mg tab Take 100 mg by mouth once daily. insulin aspart U-100 (NOVOLOG FLEXPEN U-100 INSULIN) 100 unit/mL (3 mL) Inject with meals accordingto sliding scale: 100-200=3 units, 201-250=5 units, 251- 300=8 units, 301-350=12 units, 351-400=15 units. Current Facility-Administered [...] Abs Lymph 1.00 - 4.00 k/uL 1.81 [place]% % 6.9 Abs [place] <0.87 k/uL 0.86 [place]% % 3.1 Abs [...] with long-term current use of insulin (HCC) -ICD9: 250.60, 357.2, V58.67, ICD10: E11.40, Z79.4 (primary diagnosis) improved control - Continue current medications - Blood glucose monitoring on a four times a day schedule - Encouraged regular aerobic exercise and weight loss - Follow up in 6 months, sooner should any other issues arise. - Discussed diabetic education issues of alf diabetic complications, hypoglycemic symptoms, hyperglycemic symptoms, diet, medications- side effects and need for compliance, importance of exercise, use and side effects of insulin, and importance of annual examinations with Opthalmology with patient. - HGB A1C - COMP METABOLIC PANEL - INSULIN ASPART (U-100) 100 UNIT/ML (3 ML) SUBCUTANEOUS PEN - CBC + DIFF 2. Diabetic polyneuropathy associated with type 2 diabetes mellitus (HCC) - ICD9: 250.60, 357.2, ICD10: E11.42 Controlled on current regimen. 3. NSTEMI (non-ST elevated myocardial infarction) (HCC) - ICD9: 410.70, ICD10: I21.4 Patient asymptomatic on current regimen. Will reach out to Dr. Huston's office about follow up as requested. 4. [...] aware of importance of regular checks. No bleeding/bruising.Taking coumadin as prescribed. - WARFARIN 5 MG [...] reigmen. Abdulaziz Caldera MD documented in this encounterCleveland Clinic [facility]01-23-2023 Miscellaneous Notes* Telephone Encounter - Tamika Grijalva LPN - 08/06/2022 2:51 PM EST Phoned patient and updated him with provider's message. Patient voiced understanding. * Telephone Encounter - Abdulaziz Caldera MD - 08/06/2022 2:41 PM EST I would not recommend a baby ASA for this patient. * Telephone Encounter - Mila Castro LPN - 08/06/2022 2:17 PM EST Pt called to check on refill on baby aspirin. This is not on med list. Pt asking if he should be taking this. Please advise pt. Mila Castro LPN documented in this encounterCleveland Clinic Ment[facility] Hospital01-23-2023 History of Present illness Narrative* Zachary Jaimes MD - 08/06/2022 11:18 AM EST HPI Richard Roy is a 76 year old male who presents with chronic frontal sinusitis. Patient is seen in consultation for Dr. Caldera. Patient had an episode of either syncope or loss of balance and dueto this he had a's CT and MRI which showed some element of chronic sinusitis. Patient has no nasal s ymptoms or any headaches. Patient does have chronic [...] was a vestibular problem at this time Zachary Jaimes MD Findings will be communicated to the referring physician via mail or electronic medical record. documented in this encounterCleveland Clinic Ment[facility] Hospital01-17-2023 Miscellaneous Notes* Telephone Encounter - Melba Jones - 07/31/2022 11:36 AM EST Spoke with patient , Ciarra and informed of therapeutic range INR and that should continue current dose of coumadin and follow up in two weeks. She verbalized understanding. Melba Jones * Telephone Encounter - Abdulaziz Caldera MD - 07/31/2022 11:25 AM EST INR therapeutic. Continue current coumadin dosage and follow up in 2 weeks. I discussed importance of compliance with patient at his last OV. * Telephone Encounter - Rebecca Esteban LPN - 07/31/2022 11:11 AM EST Last INR: PT INR 3.4 07/30/2022 Current dose of coumadin is: 10mg Mon & Wed, then 7.5mg all other days. Last date of dose change: Unkown Previous INR (date and result): 2.7 04/03/2022 Additional Clinical Information or narrative: yes: patient seems to be noncompliant with rechecks. Last recheck was supposed to be done in April 2022. Rebecca Esteban LPN documented in this encounterCleveland Clinic Ment[facility] Hospital01-13-2023 Miscellaneous Notes* Telephone Encounter - Meghana Burgess - 07/27/2022 9:55 AM EST Slated message not read as of 07/27/2022. Called and spoke with patient. Appt rescheduled to 09/07/2022 at 11:00 AM Meghana Burgess * Telephone Encounter - Meghana Burgess - 07/05/2022 4:08 PM EST Due to change in provider's schedule, appt on 08/21/2022 needs rescheduled. Patient notified via Slated message on 07/05/2022. Meghana Burgess documented in this encounterCleveland Clinic Mentor Hospital01-12-2023 Miscellaneous Notes* Telephone Encounter - Abdulaziz Caldera MD - 07/26/2022 3:09 PM EST Thanks. * Telephone Encounter - Ann Castillo RN - 07/26/2022 3:04 PM EST Darlyn, a nurse with [facility] calling to state she has discharged pt from nursing home today. Pt is doing really well. No call back needed. Thank you. documented in this encounterCleveland Clinic Ment[facility] Hospital01-11-2023 Miscellaneous Notes* Telephone Encounter - Suzanne Lino RN - 07/25/2022 1:42 PM EST Last Office Visit: 07/12/2022 Future Office Visit: 08/09/2022 Requested Prescriptions Pending Prescriptions Disp Refills amLODIPine (NORVASC) 2.5 mg tablet 30 tablet 5 Sig: Take 1 tablet by mouth once daily. Date of Last Labs: 03/02/2022 documented in this encounterCleveland Clinic Mentor Hospital01-03-2023 Miscellaneous Notes* Telephone Encounter - Abdulaziz Caldera MD - 07/17/2022 12:58 PM EST Reviewed and agree. * Telephone Encounter - Halima Diaz RN - 07/17/2022 12:51 PM EST Maverick PT calling from [facility] to report plan of care for patient and PT will visit patient 2 times a week for 3 weeks. PT will work with patient on functional mobility training. Halima Diaz RN documented in this encounterCleveland Clinic Ment[facility] Hospital01-03-2023 Miscellaneous Notes* Telephone Encounter - Abdulaziz Caldera MD - 07/17/2022 11:18 AM EST Reviewed. * Telephone Encounter - Eva Schmid LPN - 07/17/2022 11:12 AM EST Barbi from [facility] calling with OT plan of care, one time visit only, patient denies any further OT needs. No call back needed. documented in this encounterCleveland Clinic Mentor Hospital12-30-2022 Miscellaneous Notes* Telephone Encounter - Ewa Andino Ma - 07/13/2022 11:30 AM EST Left detailed message on confidential line Ewa Andino Ma * Telephone Encounter - Abdulaziz Caldera MD - 07/13/2022 11:01 AM EST agree * Telephone Encounter - Ann Castillo RN - 07/13/2022 10:00 AM EST Chiki, a nurse with [facility] calling with Shelter Plan of Care for patient: Patient will be seen 1 time per week for 4 weeks for BP monitoring. No call back needed if provider agreeable. Thank you. documented in this encounterCleveland Clinic Ment[facility] Hospital12-29-2022 Miscellaneous Notes* Telephone Encounter - Ewa Andino Ma - 07/12/2022 10:53 AM EST Karly was notified Ewa Andino Ma * Telephone Encounter - Abdulaziz Caldera MD - 07/12/2022 10:47 AM EST Agree and will follow * Telephone Encounter - Marcella Alvarez RN - 07/12/2022 10:07 AM EST Karly with [facility] called and reports Pt was discharged yesterday and they received a referral for PT/OT/SN. They are going to do their start of care tomorrow, and she was asking if the provider would be willing to follow. documented in this encounterCleveland Clinic Mentor Hospital12-26-2022 Miscellaneous Notes* Telephone Encounter - Suzanne Lino RN - 07/09/2022 11:46 AM EST Last Office Visit: 04/16/2022 Future Office Visit: 09/17/2022 Requested Prescriptions Pending Prescriptions Disp Refills dulaglutide (TRULICITY) 1.5 mg/0.5 mL pen injector 12 Each 3 Sig: Inject 1.5 mg subcutaneously one time a week. Inject once per week. Discard Pen After Date of Last Labs: 03/02/2022 documented in this encounterCleveland Clinic Ment[facility] Hospital12-12-2022 Miscellaneous Notes* Telephone Encounter - Tania Heller LPN - 06/25/2022 1:29 PM EST Last appt: 04/16/22 - Next scheduled appt: 09/17/22 Patient has been identified by name and date of : Yes Requested Prescriptions Pending Prescriptions Disp Refills tamsulosin (FLOMAX) 0.4 mg 30 capsule 2 Sig: Take 1 capsule by mouth daily at bedtime. RX INSTRUCTIONS: Patient aware RX will be sent to pharmacy. No need to notify patient. Tania Heller LPN documented in this encounterCleveland Clinic Ment[facility] Hospital11-02-2022 Miscellaneous Notes* Telephone Encounter - Mila Castro LPN - 05/16/2022 10:29 AM EDT Patient has been identified by [...] you. Mila Castro LPN documented in this [facility]10-04-2022 History of Present illness Narrative* Jojo Kaur MD - 04/17/2022 11:35 AM EDT Images from the original note [...] evaluation of folllow up after hospitalization in [facility]. he was admitted because of syncopal episode [...] covid hit they went to [facility] and was staying in the house [...] delayed closure on 05/28/18. Dr. Obregon at [facility] COLONOSCOPY 10/10/2021 repeat in 3 years [...] week. Discard Pen After blood sugar diagnostic ([employer] (Inspect Manager)UCH ULTRA TEST) test strip Test blood sugar(s) 3 times daily. Dx: E11.49. Insulin: Yes Docusate Sodium 100 mg tab Take 100 mg by mouth once daily. insulin aspart U-100 ([employer] FLEXPEN U-100 INSULIN) 100 unit/mL (3 mL) Inject with meals accordingto sliding scale: 100-200=3 units, 201-250=5 units, 251- 300=8 units, 301-350=12 units, 351-400=15 units. Current Facility-Administered [...] 72 Resp 18 Ht 185.4 cm (6' 1) Wt 114.3 kg (252 lb) SpO2 98% [...] GAIT: Wide based gait ,unsteady Cannot tandem Jojo Kaur M.D. [facility] [place] Department of Neurology Total time in minutes [...] at night. documented in this encounterCleveland Clinic Ment[facility] Hospital10-04-2022 Miscellaneous Notes* Telephone Encounter - Abdulaziz Caldera MD - 04/17/2022 11:24 AM EDT Reviewed. * Telephone Encounter - MERYL Zamudio - 04/17/2022 11:03 AM EDT Behavioral Health Social Work Progress Note Patient identified for [facility] from: PCP Reason for referral: [facility] Resources: Psychology - talk therapy [facility] encounter type: Telephone Encounter Attempts [...] [facility] [address], [facility] [address] *counseling [address] [address] *counseling [facility] [address], [address] [place] [address] *counseling [facility] [address] [place] [address] FEDERICO Zamudio April 17, 2022 documented in this encounterCleveland Clinic Ment[facility] Hospital10-03-2022 History of Present illness Narrative* Abdulaziz Caldera MD - 04/16/2022 1:25 PM EDT Chief Complaint Patient presents with: Physical HPI [...] motivation. Just sits all day in the chair,watches TV, and plays on his tablet. Interested in counseling and would like referral. Denies SI/HI. DIABETES MELLITUS: Mr. Roy was last seen 6 months ago. Since our last visit he denies excessive thirst or increased frequency of urination, numbness, tingling or pain in extremities, new or unusualvisual symptoms, low sugar/hypoglycemic reactions, and weight loss/gain. [...] of insulin(HCC) 06/20/2016 Vitamin D deficiency 01/03/2022 Previous Surgical History PAST SURGICAL HISTORY Procedure Laterality Date ABDOMINAL SURGERY HX AMPUTATION METATARSAL+TOE,SINGLE Right 05/25/2018 with delayed closure on 05/28/18. Dr. Obregon at [facility] COLONOSCOPY 10/10/2021 repeat in 3 years [...] week. Discard Pen After blood sugar diagnostic (nuevoStage ULTRA TEST) test strip Test blood sugar(s) 3 times daily. Dx: E11.49. Insulin: Yes Docusate Sodium 100 mg tab Take 100 mg by mouth once daily. insulin aspart U-100 (NOVOLOG FLEXPEN U-100 INSULIN) 100 unit/mL (3 mL) Inject with meals accordingto sliding scale: 100-200=3 units, 201-250=5 units, 251- 300=8 units, 301-350=12 units, 351-400=15 units. Current Facility-Administered [...] 70 Resp 16 Ht 185.4 cm (6' 1) Wt 114.3 kg (252 lb) SpO2 98% [...] Abs Lymph 1.00 - 4.00 k/uL 1.81 [place]% % 6.9 Abs [place] <0.87 k/uL 0.86 Eosin% % 3.1 Abs [...] arise. - Discussed diabetic education issues of watermelon inspector diabetic complications, hypoglycemic symptoms, hyperglycemic symptoms, diet, [...] regimen. 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, macular edema presence unspecified (HCC) Essential hypertension, benign Hyperlipidemia with target LDL less than 100 Other and unspecified hyperlipidemia Mild depression Depressive disorder, not elsewhere classified BPH without urinary obstruction Hypertrophy of prostate without urinary obstruction and other lower urinary tract symptoms (LUTS) documented in this encounter [facility]09-[facility] History of Present illness Narrative* Roselia Madrigal, MARYLU.BARGAIN TABLE CLERK - 04/06/2022 9:40 AM EDT 04/06/2022 Patient [...] Benign-Dr. 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 FOR CHOLESTEROL. blood sugar diagnostic (nuevoStage ULTRA TEST) test strip Test blood sugar(s) [...] SEASONAL QUADRIVALENT HIGH DOSE AGE 65+ - PFIZER-BIONTECH COVID-19 BIVALENT BOOSTER VACCINE, AGE 12+ YR [...] which included preparing to see the patient, [id number] patient care, completing clinical documentation, obtaining and/or reviewing separately obtained history, performing a medically appropriate examination, and counseling and educating the patient/family/caregiver. documented in this encounterC[facility] Clinic [facility]09-21-2022 Miscellaneous Notes* Telephone Encounter - Valencia [...] EDT ----- Please forward INR to doctor airborne [employer] systems Roselia Madrigal APRN.CNP documented in this encounterCleveland Clinic [facility]09-16-2022 History of Present illness Narrative* Zachary Obregon - 03/30/2022 3:46 PM EDT Last [...] polyneuropathy associated with type 2 diabetes mellitus ([facility]) Plan: Patient was seen and evaluated. Nails [...] Patient is to RTC in 3-4 months. Zachary Obregon DPM * Merlene Martinez LPN - 03/30/2022 3:29 PM EDT Patient presents with: Left Foot - Established Patient, Follow Up, Diabetic Foot Care Right Foot - Established Patient, Follow Up, Diabetic Foot Care Merlene Martinez LPN documented in this encounterCleveland Clinic [facility]09-16-2022 Instructions* Patient Instructions* Zachary Obregon - 03/30/2022 3:46 PM EDT Diabetes [...] (or decreased sensation in your feet) a distillery laborer should always cut your toenails. Be Careful [...] Go to your health care provider or distillery laborer to treat these conditions. documented in this encounterCleveland Clinic [facility]09-09-2022 History of Present illness Narrative* Rosa [...] 01/12/22 through 03/15/22 Goals updated on 03/23/2022. [place] in home exercise program. (Met) Patient will [...] Poon PT documented in this encounterCleveland Clinic [facility]09-08-2022 Miscellaneous Notes* Telephone Encounter - Maggy Ibarra Pss - 03/22/2022 1:49 PM EDT Pharmacy verified in [facility] Patient has been identified by name [...] Ibarra Pss documented in this encounterCleveland Clinic [facility]09-02-2022 History of Present illness Narrative* Rosa Elena Poon PT - 03/16/2022 7:05 AM EDT Episode [...] 15 Total Treatment Time Minutes (timed/untimed): 40 ALISIA Whiting PT documented in this encounterCleveland Clinic [facility]08-29-2022 History of Present illness Narrative* Rosa [...] Treatment Time Minutes (timed/untimed): 41 Karen Weber, SWITCHGEAR REPAIRER Rosa Elena Poon PT documented in this encounterCleveland Clinic Ment[facility] Hospital08-26-2022 Miscellaneous Notes* Addendum Note - Rosa Elena Poon PT - 03/09/2022 1:18 PM EDTAddended by: ROSA ELENA POON on: 03/09/2022 01:18 PM Modules accepted: Orders documented in this encounterCleveland Clinic [facility]08-26-2022 History of Present illness Narrative* Rosa Elena Poon, PT - 03/09/2022 10:32 AM EDT Episode [...] 01/12/22 through 03/15/22 Goals updated on 03/09/2022. [place] in home exercise program. (Met) Patient will [...] Patient to be seen for Therapeutic exercise (39583);Neuromuscular re-education (33457);Gait Training (38666);Patient/Family/Caregiver Education PLAN FOR NEXT VISIT: Add bridging [...] Poon PT documented in this encounterCleveland Clinic [facility]08-24-2022 Miscellaneous Notes* Telephone Encounter - Amada [...] Ma Cma documented in this encounterCleveland Clinic [facility]08-24-2022 Instructions* Patient Instructions* Abdulaziz Caldera MD - 03/07/2022 11:45 AM EDT Please take 2,000 units of vitamin D daily over the counter. documented in this encounterCleveland Clinic [facility] Hospital08-24-2022 History of Present illness Narrative* Abdulaziz Caldera MD - 03/07/2022 11:19 AM EDT Chief Complaint Patient presents with: 6 Month Exam ER F/U HPI Richard Roy is a 76 year old male who presents here today for ER Follow Up.. Patient evaluated at [facility] ED on 03/02 for complaint of [...] amputation of first toe of right foot ([facility]) 05/25/2018 History of transfusion Hyperlipidemia LDL goal < 100 04/01/2012 Pulmonary embolus, right ([facility]) 09/25/2013 Status post aortic valve repair 2004 Thoracic aneurysm without mention of rupture Type 2 diabetes mellitus with stage 3 chronic kidney disease, with long-term current use of insulin([facility]) 06/20/2016 Vitamin D deficiency 01/03/2022 Previous Surgical History PAST SURGICAL HISTORY Procedure Laterality Date ABDOMINAL SURGERY HX AMPUTATION METATARSAL+TOE,SINGLE Right 05/25/2018 with delayed closure on 05/28/18. Dr. Obregon at [facility] COLONOSCOPY 10/10/2021 repeat in 3 years [...] ONCE DAILY. FOR CHOLESTEROL. blood sugar diagnostic (nuevoStage ULTRA TEST) test strip Test blood sugar(s) [...] Abs Lymph 1.00 - 4.00 k/uL 1.81 [place]% % 6.9 Abs [place] <0.87 k/uL 0.86 Eosin% % 3.1 Abs [...] Caldera MD documented in this encounterCleveland Clinic [facility]08-22-2022 History of Present illness Narrative* Rosa [...] told all of the testing was negative and,they couldn't find anything wrong, so they think [...] Poon PT documented in this encounterCleveland Clinic [facility]08-19-2022 History of Present illness Narrative* Rosa [...] Poon PT documented in this encounterCleveland Clinic [facility]08-15-2022 History of Present illness Narrative* Rosa [...] Poon PT documented in this encounterC[facility]08-12-2022 History of Present illness Narrative* Rosa [...] Treatment Time Minutes (timed/untimed): 43 Karen Weber, SWITCHGEAR REPAIRER Rosa Elena Poon PT documented in this encounterCleveland Clinic [facility]08-03-2022 History of Present illness Narrative* Rosa [...] Poon PT documented in this encounterC[facility] Clinic [facility]07-29-2022 History of Present illness Narrative* Rosa [...] 01/12/22 through 03/15/22 Goals updated on 02/09/2022. [place] in home exercise program. (Met) Patient will [...] Patient to be seen for Therapeutic exercise (20138);Neuromuscular re-education (13451);Gait Training (10547);Patient/Family/Caregiver Education PLAN FOR NEXT VISIT: Continue to [...] Poon PT documented in this encounterCleveland Clinic [facility]07-26-2022 Miscellaneous Notes* Telephone Encounter - Nola Castro [facility] - 02/06/2022 2:18 PM EDT Patient has been identified by name and date of : Yes Pending Prescriptions Disp Refills PEN NEEDLE, DIABETIC 31 GAUGE X /16 120 Each 11 Si Each four times daily. With insulin NUHA: No RX INSTRUCTIONS: Patient aware RX will be sent to pharmacy. No need to notify patient. Nola Castro Pss documented in this encounterCleveland Clinic [facility] Hospital07-22-2022 History of Present illness Narrative* Cortney Ollie, PT - 02/02/2022 2:14 PM EDT Episode [...] Whiting PT documented in this encounterCleveland Clinic [facility] Hospital07-21-2022 Miscellaneous Notes* Telephone Encounter - Mila [...] it weekly? * Telephone Encounter - Eulalia Pedroza - 01/31/2022 4:32 PM EDT Patient has been identified by name and date of : Yes Pending Prescriptions Disp Refills CHOLECALCIFEROL (VITAMIN D3) 1,250 MCG (50,000 UNIT) CAPSULE 12 capsule 0 Sig: Take 1 capsule by mouth one time a week. NUHA: No OMAR-01/02/22 Labs-01/13/22 NOV-07/04/22 RX INSTRUCTIONS: Patient aware RX will be sent to pharmacy. No need to notify patient. Eulalia Whitlocksec documented in this encounterCleveland Clinic [facility]07-19-2022 History of Present illness Narrative* Justina [...] Total Treatment Time Minutes (timed/untimed): 43 Karen Gus, ALISIA Escoto, PT documented in this encounterCleveland Clinic [facility]07-12-2022 Miscellaneous Notes* Telephone Encounter - Rebecca [...] Gonzales RN documented in this encounterCleveland Clinic [facility]07-12-2022 History of Present illness Narrative* Chiki [...] Whiting PT documented in this encounterCleveland Clinic [facility]07-08-2022 Miscellaneous Notes* Telephone Encounter - Maggy Stevie - 01/19/2022 2:08 PM EDT Called pt told him that he can not drive at this time. He voiced understanding. * Telephone Encounter - Jojo Kaur MD - 01/19/2022 1:[address] after syncopal episode * Telephone Encounter - Jojo Kaur MD - 01/19/2022 1:18 PM EDT [...] Please advise. documented in this encounterCleveland Clinic [facility]07-01-2022 History of Present illness Narrative* Rosa [...] of Care: created on 01/12/22 through 03/15/22 [place] in home exercise program. Patient will demonstrate [...] Planned: 16 Planned Treatment Interventions: Therapeutic exercise (14152);Neuromuscular re- education (26056);Gait Training (86754);Patient/Family/Caregiver Education PLAN FOR NEXT VISIT: Review HEP [...] Poon PT documented in this encounterCleveland [facility]07-01-2022 Miscellaneous Notes* Telephone Encounter - Ewa [...] that shows they are different though. Was hector to not drive by someone? If he [...] Please advise documented in this encounterCleveland Clinic [facility]06-29-2022 Miscellaneous Notes* Telephone Encounter - Mila Sharma - 01/10/2022 4:42 PM EDT Pt notified. If he has any further episodes he will contact PCP for further eval. Mila Sharma * Telephone Encounter - Mila Zachary - 01/10/2022 4:40 PM EDT ----- Message from Justina Monique APRN.CNP sent at 01/10/2022 11:33 AM EDT ----- Please call patient and notify him. Echocardiogram is stable. Valve replacement function is stable.No cardiac structure/function changes to explain his syncope/collapse. Thank you! documented in this encounterCleveland Clinic [facility] Hospital06-29-2022 Miscellaneous Notes* Result QuickNote - Justina Monique APRN.CNP - 01/10/2022 11:33 AM EDT Please call patient and notify him. Echocardiogram is stable. Valve replacement function is stable.No cardiac structure/function changes to explain his syncope/collapse. Thank you! documented in this encounterCleveland Clinic [facility]06-24-2022 History of Present illness Narrative* Jojo Kaur MD - 01/05/2022 10:20 AM EDT [...] shared medical record. REFERRING PHYSICIAN: Abdulaziz Caldera [id number] [facility] [id number] Accompanied by: Spouse ASSESSMENT: 76 year old [...] evaluation of folllow up after hospitalization in [facility]. he was admitted because of syncopal episode [...] covid hit they went to [facility] and was staying in the house [...] amputation of first toe of right foot ([facility]) 05/25/2018 History of transfusion Hyperlipidemia LDL goal < 100 04/01/2012 Pulmonary embolus, right ([facility]) 09/25/2013 Status post aortic valve repair 2005 Thoracic aneurysm without mention of rupture Type 2 diabetes mellitus with stage 3 chronic kidney disease, with long-term current use of insulin([facility]) 06/20/2016 Vitamin D deficiency 01/03/2022 PSH: PAST SURGICAL HISTORY Procedure Laterality Date ABDOMINAL SURGERY HX AMPUTATION METATARSAL+TOE,SINGLE Right 05/25/2018 with delayed closure on 05/28/18. Dr. Obregon at [facility] COLONOSCOPY 10/10/2021 repeat in 3 years [...] by mouth once daily. blood sugar diagnostic (nuevoStage ULTRA TEST) test strip Test blood sugar(s) [...] 58 Resp 16 Ht 185.4 cm (6' 1) Wt 111.6 kg (246 lb) SpO2 97% [...] GAIT: Wide based gait ,unsteady Cannot tandem Jojo Kaur M.D. [facility] [place] Department of Neurology January 05, 2022 Total [...] at night. documented in this encounterCleveland Clinic [facility] Hospital06-21-2022 Miscellaneous Notes* Telephone Encounter - Justina Garcia LPN - 01/02/2022 8:06 AM EDT I spoke to and informed him of Justina's response to lipid panel results. Patient voiced understanding. Justina Garcia LPN * Telephone Encounter - Justina Garcia LPN - 01/02/2022 7:43 AM EDT ----- Message from Justina Monique APRN.BARGAIN TABLE CLERK sent at 01/02/2022 7:38 AM EDT ----- Please call patient and notify him cholesterol has good control. Thank you! documented in this encounterCleveland Clinic [facility]06-20-2022 History of Present illness Narrative* Abdulaziz Caldera MD - 01/01/2022 10:20 AM EDT Chief Complaint Patient presents with: Hospital Follow Up: [facility] discharged 12/29/21 HPI Richard Roy is a 76 year old male who presents here today for Hospital Discharge Follow up. Accompanied today by his . Patient admitted to [facility] from 12/27 to 12/29 [facility] after being found slumped over his tractor at home earlier in the afteeron. Had been working outside for unknown period of time. Had only eaten cookies and milk that day. Heat index over 100. Back to baseline at the time of evaluation by hospitalist at [facility]. Found to have leukocytosis at [place] [facility] and elevated lactic acid level. Noted [...] echo since it was not completed at [facility]. No other changes to regimen. Patient [...] Benign-Dr. 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 Dr. Obregon at [facility] COLONOSCOPY 10/10/2021 repeat in 3 years [...] by mouth once daily. blood sugar diagnostic ([employer] (Inspect Manager)UCH ULTRA TEST) test strip Test blood sugar(s) [...] Caldera MD documented in this encounterCleveland Clinic [facility]06-20-2022 Instructions* Patient Instructions* Justina Monique APRN.BARGAIN TABLE CLERK - 01/01/2022 9:05 AM EDT High Blood [...] resting blood pressure ranges up to 120/80 (120 over 80). The first number (120 in this example) [...] risk for high blood pressure. Developed by [employer]. Published by [employer]. Copyright 2014 [employer] and/or one of its subsidiaries. All rights reserved. documented in this encounterCleveland Clinic Mentor Hospital06-20-2022 History of Present illness Narrative* Justina Monique APRN.KOSTAS - 01/01/2022 8:57 AM EDT Chief Complaint [...] Benign-Dr. Cazares Diabetes mellitus with neurological manifestation ([facility]) 09/08/2010 Diverticulosis of colon (without mention of [...] kidney disease, with long-term current use of insulin([facility]) 06/20/2016 PAST SURGICAL HISTORY Procedure Laterality Date ABDOMINAL SURGERY HX AMPUTATION METATARSAL+TOE,SINGLE Right 05/25/2018 with delayed closure on 05/28/18. Dr. Obregon at [facility] COLONOSCOPY 10/10/2021 repeat in 3 years [...] mL injection (DEFINITY) INTRAVENOUS DIRECTED PRN Justina Monique APRN.CNP sodium chloride 0.9 % (flush) 10 mL (BD POSIFLUSH) 10 mL INTRAVENOUS DIRECTED PRN Justina Monique, SYSTEMS INTEGRATION MANAGER.BARGAIN TABLE CLERK Review of Systems Constitutional: Negative for chills, [...] BP Position BP Site BP Cuff Size 01/01/2255 -- -- 147/74 60 Sitting Right Arm [...] MRI of his head CAD -MILD on [facility] 2004 -stress testing 2013 with no [...] making from today Electronically signed by Justina Monique APRN.CNP on January 01, 2022, 8:57 AM documented in this encounterCleveland Clinic Ment[facility] Hospital06-19-2022 Note. MICRO - Microbiology PROCEDURE: Blood Culture (bacterial) [*1] SOURCE: Blood BODY SITE: COLLECTED DATE/TIME: 12/27/2021 17:43 EDT RECEIVED DATE/TIME: 12/28/2021 14:37 EDT START DATE/TIME: 12/28/2021 14:37 EDT FREE TEXT SOURCE: FINAL REPORTS Final Report [] Verified Date/Time/Personnel: 12/31/2021 07:29 EDT Staphylococcus epidermidis Isolated from anaerobe bottle only. Refer to previous culture for susceptibility. [id number] PRELIMINARY REPORTS Preliminary Report [] Verified Date/Time/Personnel: 12/30/2021 09:39 EDT Staphylococcus epidermidis Isolated from anaerobe bottle only. Refer to previous culture for susceptibility. [id number] Preliminary Report [] Verified Date/Time/Personnel: 12/28/2021 15:59 EDT Culture has been received in lab and is no growth to date. Routine cultures are held for 5 days. STAINS GSANA [] Verified Date/Time/Personnel: 12/29/2021 14:08 EDT Gram Positive Cocci in clusters Performing Locations *1: This test was performed at: [facility], [address] [place] [address], [id number]- , [facility] ([place])12-31-2021 Note. MICRO - Microbiology PROCEDURE: Blood Culture [...] Locations *1: This test was performed at: [place] [address] [place] [address], [id number]- , [facility] ([place])12-27-2021 SARS-CoV-2 (COVID-19) RNA ANGELY+probe Ql (Nph)Positive 2 *ABN* (12/27/21 5:43 PM)AO Auto Urine SSComment on above:Result Comment: positive covid cvrb tatianna ruthr Evaluation + Plan note Diagnostic Tests Pending * Urinalysis 12/27/21 * Blood Culture (bacterial) 12/27/21 * Blood Culture (bacterial) 12/27/21 [facility] 06-02-2022 History of Present illness Narrative* Abdulaziz Caldera MD - 12/14/2021 3:13 PM EDT Chief Complaint Patient presents with: Covid Follow Up HPI Richard Roy is a 76 year old male who presents here today for Above Complaints.. Patient positive for COVID in the [facility] ER last week on 12/06. Spoke [...] kidney disease, with long-term current use of insulin([facility]) 06/20/2016 Previous Surgical History PAST SURGICAL HISTORY Procedure Laterality Date ABDOMINAL SURGERY HX AMPUTATION METATARSAL+TOE,SINGLE Right 05/25/2018 with delayed closure on 05/28/18. Dr. Obregon at [facility] COLONOSCOPY 10/10/2021 repeat in 3 years [...] by mouth once daily. blood sugar diagnostic (its learningTOUCH ULTRA TEST) test strip Test blood sugar(s) [...] Caldera MD documented in this encounterCleveland Clinic [facility] Hospital05-27-2022 History of Present illness Narrative* Abdulaziz [...] today for Above Complaints.. Patient evaluated at [facility] ER on 12/06 for complaint of generalized weakness, cough, and feeling off balance and developed cough which started on 12/04. Denied other COVID symptoms at that time. Lab workup in the ER was unremarkable aside from positive COVID test and INR of 3.3. UA unremarkable. CXR showed some ill defined densities in RLL which was likely 2/2 COVID infection. [place] to be well enough and discharged home [...] Benign-Dr. 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 Dr. Obregon at [facility] COLONOSCOPY 10/10/2021 repeat in 3 years [...] by mouth once daily. blood sugar diagnostic (nuevoStage ULTRA TEST) test strip Test blood sugar(s) [...] these interactions. Not interested in driving to [place] for IV ab. Since his symptoms are mild, he would prefer to rest at home. Discussed risks and benefits of treatment and that he is high risk for severe infection. Red flags for re-assessment reviewed with patient in detail. I spent a total of 25 minutes on the date of the service which included preparing to see the patient, [id number] patient care, completing clinical documentation, obtaining and/or reviewing separately obtained history, performing a medically appropriate examination, counseling and educating the pat ient/family/caregiver and ordering medications, tests, or procedures. Abdulaziz Caldera MD documented in this encounterCleveland Clinic [facility] Hospital05-27-2022 Miscellaneous Notes* Telephone Encounter - Abdulaziz [...] with one of our providers or with [employer] care online. * Telephone Encounter - Rosa Elena Lockhart - 12/08/2021 2:16 PM EDT Patient called stating he was at [facility] ER on 12/06. Tested positive for covid. Patient was informed tocontact the office within 5 days to inform. Please advise patient when he can be seen in office. documented in this encounterC[facility] Miscellaneous Notes* Telephone Encounter - Eulalia Gaston [facility] - 11/20/2021 9:49 AM EDT Patient has been identified by name and date of : Yes Pending Prescriptions Disp Refills METFORMIN ER 500 MG 24 HR TABLET,EXTENDED RELEASE Sig: Take 1 tablet by mouth daily with breakfast. NUHA: No OMAR-09/06/21 Labs-08/30/21 NOV-03/07/22 RX INSTRUCTIONS: Patient aware RX will be sent to pharmacy. No need to notify patient. Eulalia Gaston [facility] documented in this encounterC[facility]22 Instructions* Patient Instructions* Marcella Park PA-C - 10/23/2021 1:25 PM EDT -Recommend daily fiber supplement and plenty of fluids The following instructions are important for you related to your office visit today with the [facility]. INSTRUCTIONS FOR DIVERTICULA I [...] you should contact our office immediately @ [phone] and ask to be transferred to the General Surgery department. The following instructions are important for you related to your office visit today with the [facility]. INSTRUCTIONS FOLLOWING A POLYP [...] you should contact our office immediately @ [phone] and ask to be transferred to the General Surgery department. documented in this encounterC[facility]04-11-2022 History of Present illness Narrative* Marcella Park PA-C - 10/23/2021 1:09 PM EDT FOLLOW UP VISIT - ENDOSCOPY NAME: [facility] NO.: [id number] DATE OF SERVICE: 10/23/2021 : 1945 REFERRING [...] which included preparing to see the patient, [id number] patient care, completing clinical documentation, obtaining and/or reviewing separately obtained history, counseling and educating the patient/family/caregiver, communicating with other HCPs (not separately reported), independently interpreting results (not separately reported) and communicating results to the patient/family/caregiver. Marcella Park PA-C documented in this encounterC[facility]03-29-[facility]22 Nurse Note* Caroline Larkin RN - [...] Larkin RN - 10/10/2021 8:52 AM EDT [facility] PRE-OP NURSING HAND OFF NOTE SBAR Hand off given to Brandi Brown RN. Hand off was communicated verbally and at the patient's bedside and all questions were answered. 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 Dr. Obregon at [facility] COLONOSCOPY FLX DX W/COLLJ SPEC WHEN PFRMD 03/12/11 DEBRIDEMENT OF SKIN, FULL THIC 09-12-10 LEFT GROIN DEBRIDEMENT OPEN WOUND 20 SQ [...] by mouth once daily. blood sugar diagnostic (nuevoStage ULTRA TEST) test strip Test blood sugar(s) [...] entered by the nurse and reviewed by in Nursing Notes: Cortney Starr LPN 08/16/2021 8:38 [...] C (97.2 F), height 185.4 cm (6' 1), weight 111.6 kg (246 lb), SpO2 98 [...] offered a surgery/procedure [facility]. I have counseled the patient [...] Park PA-C documented in this encounterCleveland Clinic [facility]03-24-2022 Miscellaneous Notes* Telephone Encounter - Mila Anne Castro LPN - 10/05/2021 3:40 PM EDT Spoke with pt and information listed below given. Pt verbalizes understanding. 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 Patient aware RX will be sent to pharmacy. No need to notify patient. Violette Lockhart documented in this encounterCleveland Clinic [facility]03-23-2022 Miscellaneous Notes* Telephone Encounter - Nelson [...] Diaz RN documented in this encounterCleveland [facility]02-02-2022 Miscellaneous Notes* Telephone Encounter - Garland Vicente - 08/16/2021 9:36 AM EST 10-10-2021 [facility] documented in this encounterCleveland Clinic [facility]01-13-2022 NoteHNO ID: [id number] Author: REY Burt Service: Radiology Author Type: Container Filler Type: Progress Notes Filed: 07/27/2021 10:50 AM [...] Roy DATE: July 27, 2021 TIME: 10:49 [id number] History of Past illness Narrative* Problem Noted [...] encounter (statuses as of 10/04/2021) [facility] of [facility] illness Narrative* Problem [...] encounter (statuses as of 10/05/2021) [facility] Narrative* Problem [...] encounter (statuses as of 10/11/2021) [facility] Narrative* Problem Noted Date Resolved Date S/P aortic valve replacement 10/25/201401/2016 Pulmonary embolus, right 09/25/2013 018 Callus of foot 09/25/2013 07/20/2019 Tinea of nail 09/25/2013 07/20/2019 Encounter for monitoring Coumadin therapy 201307/20/2019 Overview: INR goal 2.5-3.5 Morbid obesity with BMI of 40.0-44.9, adult /12/201208/19/2017 Skin lesion 03/21/2011 06/20/2016 Cellulitis and abscess 11/22/2010 6 Non-healing surgical wound 09/19/201006/20 Abscess 09/08/2010 06/20/2016 Sciatica 05/04/2009 06/20/2016 documented as of this encounter (statuses as of 10/16/2021) [facility] of [facility] illness Narrative* Problem [...] encounter (statuses as of 10/27/2021) [facility] Narrative* Problem [...] encounter (statuses as of 11/20/2021) [facility] Narrative* Problem [...] encounter (statuses as of 12/12/2021) [facility] Narrative* Problem [...] encounter (statuses as of 12/13/2021) [facility] Narrative* Problem [...] encounter (statuses as of 12/14/2021) [facility] Narrative* Problem [...] encounter (statuses as of 01/01/2022) [facility] Narrative* Problem [...] encounter (statuses as of 01/02/2022) [facility] Narrative* Problem [...] encounter (statuses as of 01/02/2022) [facility] Narrative* Problem [...] encounter (statuses as of 01/06/2022) [facility] Narrative* Problem [...] encounter (statuses as of 01/10/2022) [facility] Narrative* Problem [...] encounter (statuses as of 01/11/2022) [facility] Narrative* Problem [...] encounter (statuses as of 01/12/2022) [facility] Narrative* Problem [...] encounter (statuses as of 01/12/2022) [facility] Narrative* Problem [...] encounter (statuses as of 01/19/2022) [facility] Narrative* Problem [...] encounter (statuses as of 01/23/2022) [facility] Narrative* Problem [...] encounter (statuses as of 01/25/2022) [facility]arrative* Problem [...] encounter (statuses as of 01/30/2022) [facility]arrative* Problem [...] encounter (statuses as of 02/01/2022) [facility]arrative* Problem [...] encounter (statuses as of 02/02/2022) [facility]* Problem [...] encounter (statuses as of 02/02/2022) [facility]* Problem [...] encounter (statuses as of 02/06/2022) [facility]* Problem [...] encounter (statuses as of 02/09/2022) [facility]* Problem [...] encounter (statuses as of 02/14/2022) [facility]* Problem [...] encounter (statuses as of 02/26/2022) [facility]ative* Problem [...] encounter (statuses as of 03/02/2022) [facility]* Problem [...] encounter (statuses as of 03/05/2022) [facility]* Problem [...] encounter (statuses as of 03/07/2022) [facility]* Problem [...] encounter (statuses as of 03/08/2022) [facility]* Problem [...] encounter (statuses as of 03/09/2022) [facility]ative* Problem [...] encounter (statuses as of 03/12/2022) [facility]* Problem [...] encounter (statuses as of 03/16/2022) [facility]* Problem [...] encounter (statuses as of 03/23/2022) [facility]* Problem [...] encounter (statuses as of 04/03/2022) [facility]* Problem [...] encounter (statuses as of 04/04/2022) [facility]* Problem [...] encounter (statuses as of 04/06/2022) [facility]* Problem [...] encounter (statuses as of 04/17/2022) [facility]* Problem [...] encounter (statuses as of 04/17/2022) [facility]* Problem [...] encounter (statuses as of 04/19/2022) [facility]* Problem [...] encounter (statuses as of 05/16/2022) [facility]* Problem [...] of this encounter (statuses as of 06/25/2022) [place] [address]-13-2015 History of Past illness Narrative* Problem Noted [...] encounter (statuses as of 07/14/2022) [facility]* Problem [...] encounter (statuses as of 07/15/2022) [facility]* Problem [...] encounter (statuses as of 07/18/2022) [facility]* Problem [...] encounter (statuses as of 07/18/2022) [facility]* Problem [...] encounter (statuses as of 07/19/2022) [facility]* Problem [...] encounter (statuses as of 07/20/2022) [facility]* Problem [...] encounter (statuses as of 07/25/2022) [facility]* Problem [...] encounter (statuses as of 07/26/2022) [facility]* Problem [...] encounter (statuses as of 07/27/2022) [facility]* Problem [...] encounter (statuses as of 07/31/2022) [facility]* Problem [...] encounter (statuses as of 08/06/2022) [facility]* Problem [...] of this encounter (statuses as of 08/07/2022) [facility]* Problem [...] of this encounter (statuses as of 08/09/2022) [facility]* Problem [...] encounter (statuses as of 08/14/2022) [facility]* Problem [...] encounter (statuses as of 08/16/2022) [facility] Problem [...] encounter (statuses as of 08/28/2022) [facility] Problem [...] encounter (statuses as of 09/07/2022) [facility]* Problem [...] encounter (statuses as of 09/09/2022) [facility]* Problem [...] encounter (statuses as of 09/25/2022) [facility]* Problem [...] encounter (statuses as of 10/23/2022) [facility]* Problem [...] encounter (statuses as of 11/20/2022) [facility]* Problem [...] encounter (statuses as of 11/20/2022) [facility]* Problem [...] encounter (statuses as of 12/13/2022) [facility]* Problem [...] encounter (statuses as of 12/14/2022) [facility]* Problem [...] encounter (statuses as of 12/18/2022) [facility] Problem [...] encounter (statuses as of 12/25/2022) [facility]* Problem [...] encounter (statuses as of 12/27/2022) [facility]* Problem [...] encounter (statuses as of 12/31/2022) [facility]* Problem [...] encounter (statuses as of 01/03/2023) [facility]* Problem [...] encounter (statuses as of 01/04/2023) [facility]* Problem [...] encounter (statuses as of 01/04/2023) [facility]* Problem [...] encounter (statuses as of 01/25/2023) [facility]* Problem [...] of this encounter (statuses as of 01/29/2023) [facility] note* Diagnosis Type 2 diabetes mellitus with diabetic neuropathy, with long-term current use of insulin (HCC) Status post aortic valve repair Other postprocedural status Chronic anticoagulation Long-term (current) use of anticoagulants [facility] [place] [facility]* Diagnosis Colon cancer screening Special screening for malignant neoplasms, colon documented in this encounter [facility] note* Diagnosis Colon cancer screening- Primary Special screening for malignant neoplasms, colon documented in this encounter [facility] note* Diagnosis Diverticulosis- Primary Diverticulosis of colon (without mention of hemorrhage) Cecal polyp documented in this encounter [facility] noteNo assessment information availableWWVUMedicine [facility] Work Phone: Evaluation note* Diagnosis COVID-19- Primary documented in this encounter [facility] note* Diagnosis COVID-19- Primary documented in this encounter [facility] note* Diagnosis Onset Date Resolution Status Acute dehydration acute ANTHONY (acute kidney injury) ac derek Heat exhaustion acute Hyperkalemia acute Lactic acidosis acute Leukocytosis acute [facility] Work Phone: Evaluation note* Diagnosis Hyperlipidemia with target LDL less than 100- Primary Other and unspecified hyperlipidemia Primary hypertension Unspecified essential hypertension Thoracic aortic aneurysm without rupture (HCC) Thoracic aneurysm without mention of rupture Coronary artery disease involving [place] coronary artery of [place] heart without angina pectoris Syncope, unspecified syncope type Obesity, Class II, BMI 35-39.9 Obesity, unspecified documented in this encounter [facility] note* Diagnosis Syncope and collapse- Primary Altered mental status, unspecified altered mental status type Urinary incontinence, unspecified type Benign prostatic hyperplasia with nocturia Nocturia Vitamin D deficiency, unspecified Wound of left lower extremity, initial encounter Encounter for screening for malignant neoplasm of prostate Special screening for malignant neoplasm of prostate [facility] [place] [facility]* Diagnosis Abnormality of gait due to impairment of balance- Primary Altered mental status, unspecified altered mental status type [facility] [place] [facility]* Diagnosis Chronic anticoagulation Long-term (current) use of anticoagulants Thoracic aortic aneurysm without rupture (HCC) Thoracic aneurysm without mention of rupture Status post aortic valve repair Other postprocedural status [facility] [place] [facility]* Diagnosis Type 2 diabetes mellitus with diabetic neuropathy, with long-term current use of insulin (HCC)- Primary [facility] [place] [facility]* Diagnosis Abnormality of gait due to impairment of balance- Primary [facility] [place] [facility]* Diagnosis Abnormality of gait due to impairment of balance- Primary [facility] [place] [facility]* Diagnosis Vitamin D deficiency Unspecified vitamin D deficiency [facility] [place] [facility]* Diagnosis Abnormality of gait due to impairment of balance- Primary [facility] [place] [facility]* Diagnosis Vitamin D deficiency Unspecified vitamin D deficiency [facility] [place] [facility]* Diagnosis Type 2 diabetes mellitus with stage 3 chronic kidney disease, with long-term current use of insulin (HCC) [facility] [place] [facility]* Diagnosis Abnormality of gait due to impairment of balance- Primary [facility] [place] [facility]* Diagnosis Type 2 diabetes mellitus with diabetic neuropathy, with long-term current use of insulin (HCC) [facility] [place] [facility]* Diagnosis Abnormality of gait due to impairment of balance- Primary [facility] [place] [facility]* Diagnosis Abnormality of gait due to impairment of balance- Primary [facility] [place] [facility]* Diagnosis Onset Date Resolution Status Acute dehydration resolved Heat exhaustion resolved [facility] Work Phone: Evaluation note* Diagnosis Abnormality of gait due to impairment of balance- Primary [facility] [place] [facility]* Diagnosis Status post aortic valve repair Other postprocedural status Chronic anticoagulation Long-term (current) use of anticoagulants [facility] [place] [facility]* Diagnosis Generalized weakness- Primary Other malaise and fatigue Supratherapeutic INR Abnormal coagulation profile ANTHONY (acute kidney injury) (HCC) Acute kidney failure, unspecified [facility] [place] [facility]* Diagnosis Abnormality of gait due to impairment of balance- Primary [facility] [place] [facility]* Diagnosis Abnormality of gait due to impairment of balance- Primary [facility] [place] [facility]* Diagnosis Urinary incontinence, unspecified type [facility] [place] [facility]* Diagnosis Abnormality of gait due to impairment of balance- Primary [facility] [place] [facility]* Diagnosis Onychomycosis- Primary Dermatophytosis of nail Pain in toe of left foot Pain in limb Amputated toe of right foot (HCC) Diabetic polyneuropathy associated with type 2 diabetes mellitus ([facility]) [facility]* Diagnosis Generalized weakness- Primary Other malaise and fatigue Encounter for immunization Need for other specified prophylactic vaccination against single bacterial disease Mild depression Depressive disorder, not elsewhere classified [facility] [place] [facility]* Diagnosis Generalized anxiety disorder- Primary Polyneuropathy Unspecified hereditary and idiopathic peripheral neuropathy [facility]* Diagnosis Urinary incontinence, unspecified type documented in this encounter [facility] note* Diagnosis Onset Date Resolution Status History of pulmonary embolism acute History of thoracic aortic aneurysm repair acute NSTEMI, initial episode of care acute HTN (hypertension) [facility] Work Phone: Evaluation note* Diagnosis Dizziness- Primary Dizziness and giddiness Chronic frontal sinusitis [facility] [place] [facility]* Diagnosis Type 2 diabetes mellitus with diabetic neuropathy, with long-term current use of insulin ([facility])- Primary Diabetic polyneuropathy associated with type 2 diabetes mellitus (HCC) NSTEMI (non-ST elevated myocardial infarction) ([facility]) Acute myocardial infarction, subendocardial infarction, episode of [...] disease, with long-term current use of insulin ([facility]) 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, macular edema presence unspecified (HCC) documented in this encounter [facility] note* Diagnosis Driving safety issue- Primary Other specified personal history presenting hazards to health documented in this encounter [facility] note* Diagnosis Onychomycosis- Primary Dermatophytosis of nail Pain in toe of left foot Pain in limb Amputated toe of right foot (HCC) Diabetic polyneuropathy associated with type 2 diabetes mellitus (HCC) documented in this encounter [facility] note* Diagnosis Spinal stenosis, lumbar region, without neurogenic claudication- Primary Primary osteoarthritis of both knees Primary localized osteoarthrosis, lower leg documented in this encounter [facility] note* Diagnosis Spinal stenosis, lumbar region, without neurogenic claudication- Primary Primary osteoarthritis of both knees Primary localized osteoarthrosis, lower leg documented in this encounter [facility] note* Diagnosis Spinal stenosis, lumbar region, without neurogenic claudication- Primary Primary osteoarthritis of both knees Primary localized osteoarthrosis, lower leg documented in this encounter [facility] note* Diagnosis Spinal stenosis, lumbar region, without neurogenic claudication- Primary Primary osteoarthritis of both knees Primary localized osteoarthrosis, lower leg documented in this encounter [facility] note* Diagnosis Spinal stenosis, lumbar region, without neurogenic claudication- Primary Primary osteoarthritis of both knees Primary localized osteoarthrosis, lower leg documented in this encounter [facility] note* Diagnosis Spinal stenosis, lumbar region, without neurogenic claudication- Primary Primary osteoarthritis of both knees Primary localized osteoarthrosis, lower leg documented in this encounter [facility] note* Diagnosis Onset Date Resolution Status Confusion acute Weakness acute [facility] Work Phone: Evaluation note* Diagnosis Onset Date Resolution Status Confusion acute Weakness acute ABLA (acute blood loss anemia) acute Acute encephalopathy acute Supratherapeutic INR acute Syncope acute Upper gastrointestinal bleeding acute Warfarin-induced coagulopathy acute [facility] Work Phone: Evaluation note* Diagnosis Onset Date Resolution Status Confusion acute Weakness acute ABLA (acute blood loss anemia) acute Acute encephalopathy acute Anemia acute History of pulmonary embolism acute History of thoracic aortic aneurysm repair acute Second degree AV block, Mobitz type II acute Supratherapeutic INR acute Syncope acute Upper gastrointestinal bleeding acute Valvular heart disease acute Warfarin-induced coagulopathy acute HTN (hypertension) chronic [facility] Work Phone: Evaluation note* Diagnosis Onset Date Resolution Status Confusion acute Weakness acute ABLA (acute blood loss anemia) acute Acute encephalopathy acute History of pulmonary embolism acute History of thoracic aortic aneurysm repair acute Second degree AV block, Mobitz type II acute Supratherapeutic INR acute Syncope acute Warfarin-induced coagulopathy acute HTN (hypertension) chronic Upper gastrointestinal bleeding resolved ABLA (acute blood loss anemia) acute Second degree AV block, Mobitz type II acute Sick sinus syndrome acute Warfarin-induced coagulopathy acute HTN (hypertension) chronic Upper gastrointestinal bleeding resolved Presence of cardiac pacemaker acute Second degree AV block, Mobitz type II acute Sick sinus syndrome acute [facility] Work Phone: Evaluation note* Diagnosis Onset Date Resolution Status Confusion acute Weakness acute ABLA (acute blood loss anemia) acute Acute encephalopathy acute History of pulmonary embolism acute History of thoracic aortic aneurysm repair acute Second degree AV block, Mobitz type II acute Supratherapeutic INR acute Syncope acute Warfarin-induced coagulopathy acute HTN (hypertension) chronic Upper gastrointestinal bleeding resolved ABLA (acute blood loss anemia) acute Second degree AV block, Mobitz type II acute Sick sinus syndrome acute Warfarin-induced coagulopathy acute HTN (hypertension) chronic Upper gastrointestinal bleeding resolved Presence of cardiac pacemaker acute Second degree AV block, Mobitz type II acute Sick sinus syndrome acute Bacteremia acute Subtherapeutic international normalized ratio (INR) acute UTI (urinary tract infection) acute [facility] Work Phone: evaluation note* Diagnosis Onset Date Resolution Status Confusion acute Weakness acute Acute encephalopathy acute History of pulmonary embolism acute History of thoracic aortic aneurysm repair acute Supratherapeutic INR acute Syncope acute ABLA (acute blood loss anemia) resolved Upper gastrointestinal bleeding resolved Warfarin-induced coagulopathy resolved ABLA (acute blood loss anemia) resolved Upper gastrointestinal bleeding resolved Warfarin-induced coagulopathy resolved Presence of cardiac pacemaker acute Bacteremia acute Confusion acute Delirium acute Presence of cardiac pacemaker acute Subtherapeutic international normalized ratio (INR) acute UTI (urinary tract infection) acute Weakness acute [facility] Work Phone: Evaluation note* Diagnosis Onset Date Resolution Status Confusion acute Weakness acute Acute encephalopathy acute History of pulmonary embolism acute History of thoracic aortic aneurysm repair acute Supratherapeutic INR acute Syncope acute HTN (hypertension) chronic Second degree AV block, Mobitz type II chronic ABLA (acute blood loss anemia) resolved Upper gastrointestinal bleeding resolved Warfarin-induced coagulopathy resolved HTN (hypertension) chronic Second degree AV block, Mobitz type II chronic Sick sinus syndrome chronic ABLA (acute blood loss anemia) resolved Upper gastrointestinal bleeding resolved Warfarin-induced coagulopathy resolved Presence of cardiac pacemaker acute Second degree AV block, Mobitz type II chronic Sick sinus syndrome chronic Bacteremia acute Confusion acute Presence of cardiac pacemaker acute Subtherapeutic international normalized ratio (INR) acute UTI (urinary tract infection) acute Weakness acute Atrial tachycardia acute Presence of cardiac pacemaker acute Second degree AV block, Mobitz type II chronic Sick sinus syndrome chronic Presence of cardiac pacemaker acute Syncope acute Second degree AV block, Mobitz type II chronic Sick sinus syndrome chronic Atrial fibrillation acute HLD (hyperlipidemia) acute Presence of cardiac pacemaker acute HTN (hypertension) chronic Second degree AV block, Mobitz type II [facility] Work Phone: Evaluation note* Diagnosis Onset Date Resolution Status Acute encephalopathy acute History of pulmonary embolism acute History of thoracic aortic aneurysm repair acute Supratherapeutic INR acute Syncope acute HTN (hypertension) chronic Second degree AV block, Mobitz type II chronic ABLA (acute blood loss anemia) resolved Upper gastrointestinal bleeding resolved Warfarin-induced coagulopathy resolved HTN (hypertension) chronic Second degree AV block, Mobitz type II chronic Sick sinus syndrome chronic ABLA (acute blood loss anemia) resolved Upper gastrointestinal bleeding resolved Warfarin-induced coagulopathy resolved Presence of cardiac pacemaker acute Second degree AV block, Mobitz type II chronic Sick sinus syndrome chronic Bacteremia acute Confusion acute Presence of cardiac pacemaker acute Subtherapeutic international normalized ratio (INR) acute UTI (urinary tract infection) acute Weakness acute Atrial tachycardia acute Presence of cardiac pacemaker acute Second degree AV block, Mobitz type II chronic Sick sinus syndrome chronic Presence of cardiac pacemaker acute Syncope acute Second degree AV block, Mobitz type II chronic Sick sinus syndrome chronic Atrial fibrillation acute HLD (hyperlipidemia) acute Presence of cardiac pacemaker acute HTN (hypertension) chronic Second degree AV block, Mobitz type II [facility] Work Phone: Evaluation note* Diagnosis Onset Date Resolution Status HTN (hypertension) chronic Second degree AV block, Mobitz type II chronic Sick sinus syndrome chronic ABLA (acute blood loss anemia) resolved Upper gastrointestinal bleeding resolved Warfarin-induced coagulopathy resolved Presence of cardiac pacemaker acute Second degree AV block, Mobitz type II chronic Sick sinus syndrome chronic Bacteremia acute Confusion acute Presence of cardiac pacemaker acute Subtherapeutic international normalized ratio (INR) acute UTI (urinary tract infection) acute Weakness acute Atrial tachycardia acute Presence of cardiac pacemaker acute Second degree AV block, Mobitz type II chronic Sick sinus syndrome chronic Presence of cardiac pacemaker acute Syncope acute Second degree AV block, Mobitz type II chronic Sick sinus syndrome chronic Atrial fibrillation acute HLD (hyperlipidemia) acute Presence of cardiac pacemaker acute HTN (hypertension) chronic Second degree AV block, Mobitz type II [facility] Work Phone: Evaluation note* Diagnosis Onset Date Resolution Status Presence of cardiac pacemaker acute Syncope acute Second degree AV block, Mobitz type II chronic Sick sinus syndrome chronic Atrial fibrillation acute HLD (hyperlipidemia) acute Presence of cardiac pacemaker acute HTN (hypertension) chronic Second degree AV block, Mobitz type II [facility] Work Phone: Evaluation note* Diagnosis Onset Date Resolution Status Atrial fibrillation acute HLD (hyperlipidemia) acute Presence of cardiac pacemaker acute HTN (hypertension) chronic Second degree AV block, Mobitz type II [facility] Work Phone: History and physical note Author Dr. Aly [facility] January 04, 2023 4:32pm Note Date/Time January 04, 2023 4:12 pm [facility] Medical Records Department [address] [place] [id number] H&P Exam - Hospitalist 01/04/23 1607 MR#: [id number] Acct: [id number] Name: RICHARD ROY Rep #:[id number] : 1945 77 From: Karen Aly MD PCP: Dr. Luis Caldera MD Status :ADM LUIS ANGEL Location: [place] [address] HPI - General General Date of Admission: 01/04/23 Date of Service: 01/04/23 Chief Complaint: Confusion, falls. HPI Narrative The patient is a 77 y/o M w/ PMHx: AAA s/p repair, Hx COVID-19, Hx GI bleed, Valvular heart disease s/p AVR, HTN, HLD, VTE w/ Hx DVT/PE, Diabetes mellitus type II, Obesity who presents to the [facility] ED on 01/04/23 with history of ~ 2 weeksof increased confusion in addition to recent fall off his treadmill with no recent other specific symptoms nor any recent illnesses including no fever, chills, urinary symptoms, cough, dyspnea although she does report that he has had mildly decreased appetite and decreased food intake but no significant weight loss but given ongoing prompted ED evaluation be cautious. Per patient he has had ongoing twice weekly therapies and has not made much progress per her report from most recent therapy assessment. Patient does answer questions appropriately and is oriented but she still thinks he has not been hisbaseline self. Work-up in the ED included T97.3, heart rate initially 58 although did decrease to 44, most recent 61, BP initially 135/82 with most recent repeat 151/72, respiratory rate 14, 98% on room air, CBC with WC 10.2, hemoglobin 13.5, platelet 228 with left shift, coags with INR 3.1, CMP with BUN/creatinine 23/1.23, glucose 133 otherwise panic profile not marked appearing, troponin 7, urinalysis with specific remedy 1.020, protein 15, glucose 100, ketone negative, occult blood 10, urobilinogen 4, negative leukocyte Estrace, no marked urine RBC or WBCs, 0 urine bacteria, blood culture x2 pending per ED, urine culture pending per ED, chest x-ray with no acute cardiopulmonary findings, CT of the head with stable chronic ischemic and atrophic changes, no acute intracranial abnormality, right maxillary sinusitis. 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 Upper gastrointestinal bleed Ureterolithiasis Valvular heart disease Home Medications metoprolol succinate 200 mg tablet,extended release 24 hr 200 mg PO DAILY blood pressure 09/16/13 [History Last Taken 01/04/23] losartan 50 mg tablet 50 mg PO DAILY blood pressure 03/24/18 [History Last Taken 01/04/23] metformin 500 mg 24 hr tablet,extended release 1,000 mg PO BID diabetes 03/24/18[History Last Taken 01/04/23] atorvastatin 40 mg tablet 40 mg PO QHS cholesterol 05/22/18 [History Last Taken 01/03/23] dulaglutide 1.5 mg/0.5 mL subcutaneous pen injector (Trulicity) 1.5 mg SQ GARCIA diabetes 05/22/18 [History Last Taken 12/29/22] insulin lispro 100 unit/mL subcutaneous pen (Humalog KwikPen (U-100) Insulin) See Protocol SQ 4X/DAY diabetes 05/22/18 [History Last Taken 01/04/23] warfarin 5 mg tablet (Jantoven) 7.5 mg PO SUTUTHFRSA anticoagulant 05/22/18 [History Last Taken 01/04/23] tamsulosin 0.4 mg capsule 0.4 mg PO QHS PROSTATE 03/02/22 [History Last Taken 01/03/23] warfarin 5 mg tablet 10 mg PO MOWE 03/02/22 [History Last Taken 01/02/23] amlodipine 2.5 mg tablet 2.5 mg PO DAILY 30 days #30 tabs 07/11/22 [Rx Last Taken 01/04/23] insulin glargine 100 unit/mL (3 mL) subcutaneous pen (Lantus Solostar U-100 Insulin) 12 unit (0.12 mL) subcut DAILY diabetes #15 mL 07/11/22 [Rx Last Taken 01/04/23] Allergy/AdvReac Type Severity Reaction Status Date / Time propofol AdvReac Other Verified 01/04/23 10:58 Family History Mother Heart disease Diabetes Hypertension Father Heart disease Surgical History H/O aortic valve repair History of foot surgery History of thoracic aortic aneurysm repair Hx of abdominal surgery Social History household members: spouse housing: house current occupational status: retired Smoking Status: Unknown if ever smoked alcohol intake: never substance use type: does not use ROS ROS Narrative Admission Review of Systems: CONSTITUTIONAL: No weight loss, fever, chills, + weakness or fatigue. HEENT: Eyes: No visual loss, blurred vision, double vision or yellow sclerae. Ears, Nose, Throat: No hearing loss, sneezing, congestion, runny nose or sore throat. SKIN: + Recent mechanical fall with healing wound/lacerations noninfected appearing to the left upper extremity, occasional staged ecchymoses. CARDIOVASCULAR: No chest pain, chest pressure or chest discomfort, palpitations,edema, orthopnea, syncopal events. RESPIRATORY: No shortness of breath, cough or sputum, wheezing, hemoptysis. GASTROINTESTINAL: No anorexia, nausea, vomiting or diarrhea, abdominal pain, melena, BRBPR. GENITOURINARY: No dysuria, frequency, urgency or retention. NEUROLOGICAL: + Transient confusion, weakness. No headache, dizziness, syncope, paralysis, ataxia, numbness or tingling in the extremities, focal weakness, change in bowel or bladder control, seizure. MUSCULOSKELETAL: + muscle, back pain, joint pain or stiffness. HEMATOLOGIC: + Easy bleeding or bruising. LYMPHATICS: No enlarged nodes. No history of splenectomy. PSYCHIATRIC: No history of depression or anxiety. ENDOCRINOLOGIC: No reports of sweating, cold or heat intolerance. No polyuria orpolydipsia. ALLERGIES: No history of asthma, hives, eczema or rhinitis. Vital Signs Vital Signs Vital Signs: 01/04/23 10:59 01/04/23 11:13 01/04/23 11:15 Temperature 97.3 F L Temperature Source Temporal Pulse Rate 58 L 62 Respiratory Rate 14 15 Blood Pressure 135/82 H 128/64 H Blood Pressure Mean 99 85 Pulse Ox 98 97 Oxygen Delivery Method Room Air Room Air 01/04/23 13:08 01/04/23 15:10 Temperature Temperature Source Pulse Rate 44 L 61 Respiratory Rate 16 14 Blood Pressure 147/65 H 151/72 H Blood Pressure Mean 92 98 Pulse Ox 97 98 Oxygen Delivery Method Room Air Room Air Weight Weight: 230 lb 13.184 oz Body Mass Index (BMI) 30.4 Physical Exam Narrative Physical Examination: General: Awake, alert, oriented to self, place, recent events, appears that his prior baseline noted during prior evaluations, remains cooperative, seated upright in the ED bed, no acute complaints at this time but still believes he has not been quite himself and has been more weak. Skin: Normal color, normal turgor, no icterus, no cyanosis except for occasionalstaged ecchymoses as well as healing left arm wound/abrasions with no periwound erythema or drainage noted. HEENT: AT/NC, EOMI, PERRLA, MMM, no carotid bruits or JVD noted. Lungs: Mildly diminished, greater bases, appropriate effort, no rales, ronchi orwheezing. Heart: Mildly bradycardic with regular rhythm; no gallop, rub audible. Abdomen: Soft, obese, NTTP, ND, normal BS, no HSM. Extremities: No cyanosis, clubbing, or edema, see skin. Neurological: Patient awake, alert, oriented as noted, cognitive function improved, currently baseline intact; pupils equally reactive to light and accommodation, cranial nerves II-XII grossly normal, moving all 4 extremities, no focal deficits, strength moderately globally decreased. Psychiatric: Affect appears appropriate, interactive, no acute evidence of depressive or anxiety feelings. Results Lab / Micro Data Result Diagrams: 01/04/23 11:50 01/04/23 11:50 Labs: Laboratory Results - last 24 hr 01/04/23 11:50: WBC 10.2, RBC 5.09, Hgb 13.5, Hct 41.8, MCV 82.1, MCH 26.5 L, MCHC 32.3, RDW Std Deviation 42.3, RDW Coeff of Nathaniel 14.2, Plt Count 228, MPV 8.7, Immature Gran % (Auto) 0.900, Neut % (Auto) 78.3 H, Lymph % (Auto) 12.8 L, [place] % (Auto) 5.9, Eos % (Auto) 1.7, Baso % (Auto) 0.4, Absolute Neuts (auto) 8.0 H, Absolute Lymphs (auto) 1.31, Nucleated RBC % 0 01/04/23 11:50: PT 32.6 H, INR 3.1 01/04/23 11:50: Sodium 139, Potassium 4.2, Chloride 105, Carbon Dioxide 25.0, Anion Gap 9, BUN 23 H, Creatinine 1.23, Estim Creat Clear Calc 58.64, Est GFR (MDRD) Af Amer 74, Est GFR (MDRD) Non-Af 61, BUN/Creatinine Ratio 18.7, Glucose 133 H, Calcium 8.6, Total Bilirubin 0.70, Direct Bilirubin 0.20, AST 13 L, ALT 18, Alkaline Phosphatase 102, Troponin I High Sens 7, Total Protein 6.3 L, Albumin 3.1 L, Globulin 3.2 01/04/23 14:00: Urine Color Yellow, Urine Clarity Sl. Cloudy, Urine pH 6.0, Ur Specific [place] 1.020, Urine Protein 15 H, Urine Glucose (UA) 100 H, Urine Ketones Negative, Urine Occult Blood 10 H, Urine Nitrite Negative, Urine Bilirubin Negative, Urine Urobilinogen 4 H, Ur Leukocyte Esterase Negative, Urine RBC 0-5 SEEN, Urine WBC 0 SEEN, Ur Squamous Epith Cells 0-5 SEEN, Urine Bacteria 0 SEEN, Urine Mucus 0 SEEN Radiology Impression Brain CT 01/04/23 11:34 IMPRESSION: Stable chronic ischemic and atrophic changes. No acute intracranial abnormality. Right maxillary sinusitis. Electronically Signed: Doron Reynolds MD at 12:27 EDT , Chest X-Ray 01/04/23 12:00 IMPRESSION: No acute pulmonary process Electronically Signed: Manan Franklin MD at 13:17 EDT , Assessment & Plan Assessment/Plan (1) Confusion: PLAN: Plan The patient is a 77 y/o M w/ PMHx: AAA s/p repair, Hx COVID-19, Hx GI bleed, Valvular heart disease s/p AVR, HTN, HLD, VTE w/ Hx DVT/PE, Diabetes mellitus type II, Obesity who presents to the [facility] ED on 01/04/23 with history of ~ 2 weeksof increased confusion in addition to recent fall off his treadmill with no recent other specific symptoms nor any recent illnesses including no fever, chills, urinary symptoms, cough, dyspnea although she does report that he has had mildly decreased appetite and decreased food intake but no significant weight loss but given ongoing prompted ED evaluation be cautious. #1. Increased Confusion, falls, unclear etiology: Will admit to PCU to be cautious although unclear specific etiology for falls and given this has been ongoing for 2 weeks would have expected something on the CT head by now, we willcontinue patient Coumadin with INR trending noted to be subtherapeutic upon presentation, will continue hypertensive regimen as patient has had the symptomsongoing for 2 weeks with stable BP currently, continue statin therapy, patient with most recent echocardiogram noted 07/10/2022 thus will defer immediate repeat at this time awaiting MRI of the brain. Will request PT/OT/case management consultation for discharge planning. If MRI of the brain is concerning or there is any acute findings low threshold to involve neurology. Ammonia and ABG have also been requested to be cautious. Maintain on fall and aspiration precautions. HgbA1c, FLP, Mag, TSH, Procalcitonin requested. #2. History of VTE: Patient with history DVT, PE, we will continue patient on Coumadin regimen, INR therapeutic upon presentation 3.1, will continue to trend with hold parameters as needed. #3. Hypertension: Continue home regimen including metoprolol, losartan, amlodipine with hold parameters as needed, PRN hydralazine. #4. Hyperlipidemia: We will continue patient on statin therapy, FLP in AM. #5. Diabetes mellitus type II: Hold oral home regimen, continue home insulin regimen, ADA diet, accu checks w/ ISS. #6. History AAA: Status post repair 2006, will continue aspirin, Coumadin with INR trending, hypertensive regimen, statin regimen as noted. #7. Valvular heart disease: Status post AVR, 07/10/2022 echocardiogram with moderate concentric LVH, EF of 65%, LV systolic function normal, severely enlarged LA, mild mitral valve insufficiency, calcified aortic root. #8. BPH: We will continue patient home Flomax regimen. #9. Obesity: Weight loss and lifestyle changes encouraged. #10. DVT prophylaxis: Continue patient Coumadin with INR trending. #11. CODE status: Patient ANTHONY is their son Teddy and living will is currently in place. Full Code status confirmed with both patient and present. Admission Evaluation Time spent evaluating chart, patient history, patient evaluation, care planning and discussion with specialists: 60 minutes. Charges/Coding Visit Charges Inpatient E&M: 71115 Init Hosp L2 01/04/23 5308 <Electronically signed by Karen Aly MD> Cosigner Signature (if applicable): CC: Dr. Karen Aly MD; Dr. Luis Caldera MD~ Signed [facility] Work Phone: Hospital course Narrative No data available for this section [facility] Discharge instructions No data available for this section [facility] Discharge instructions Additional Instructions Work-up revealed a urinary tract infection which can lead to low-grade fever and alteration in mental status. Antibiotics that were prescribed should help resolve this. At this time as his blood pressure is stable and he does not have an elevated white blood cell count or kidney damage or elevation to his lactic acid treatment will commence on an outpatient basis. If he has worsening of symptoms or no improvement after 3 days of antibiotics please [facility] Work Phone: Progress note No data available for this section [facility] Progress note Author Liu Hackett [facility] January 26, 2023 3:50pm Note Date/Time January 26, 2023 3:50 pm [facility] Medical Records Department [address] [place] [address] Progress Note - GI 01/26/23 1549 MR#: [id number] Acct: [id number] Name: RICHARD ROY Rep #:[id number] : 1945 77 From: Liu Hackett DO PCP: Dr. Luis Caldera MD Status :ADM IN Location: [place] [address] Subjective Subjective Patient is doing well today. He is tolerating a diet. He will follow-up with cardiology as an outpatient. He is not having any signs or symptoms of GI bleeding at this time. Objective Data Objective Data Vital Signs: Vital Signs Temp Pulse Resp BP Pulse Ox O2 Del Method O2 Flow Rate 98.6 F 60 18 134/46 H 97 Room Air 93 01/26/23 14:13 01/26/23 14:13 01/26/23 14:13 01/26/23 14:13 01/26/23 14:13 01/26/23 15:00 01/24/23 16:00 Oxygen Flow Rate (L/min) 93 Oxygen Delivery Method Room Air Weight: 213 lb 2.992 oz Body Mass Index (BMI) 28.2 Intake & Output: Intake and Output for Last 24 Hours 01/24/23 01/25/23 01/26/23 23:59 23:59 23:59 Intake Total 2205.42 / 2205.42 2794.17 / 2794.17 2688.33 / 2688.33 Output Total 1075 / 1175 625 / 625 650 / 650 Balance 1130.42 / 1030.42 2169.17 / 2169.17 2038.33 / 2038.33 Lab / Micro Data 01/26/23 06:37 01/26/23 06:37 Labs: Laboratory Results - last 24 hr 01/22/23 11:32: IgG Not Reportable, DAVID M-Jose 01/25/23 17:05: POC Glucose 192 H 01/26/23 00:54: POC Glucose 199 H 01/26/23 06:10: POC Glucose 226 H 01/26/23 06:37: WBC 8.5, RBC 3.06 L, Hgb 8.6 L, Hct 27.1 L, MCV 88.6, MCH 28.1, MCHC 31.7 L, RDW Std Deviation 50.6 H, RDW Coeff of Nathaniel 15.9 H, Plt Count 217, MPV 9.9, Immature Gran % (Auto) 2.200 H, Neut % (Auto) 78.4 H, Lymph % (Auto) 8.1 L, [place] % (Auto) 9.6, Eos % (Auto) 1.6, Baso % (Auto) 0.1, Absolute Neuts (auto) 6.7, Absolute Lymphs (auto) 0.69 L, Nucleated RBC % 0.5, Sodium 143, Potassium 3.8, Chloride 114 H, Carbon Dioxide 23.0, Anion Gap 6, BUN 28 H, Creatinine 1.49 H, Estim Creat Clear Calc 48.41, Est GFR (MDRD) Af Amer 59 L, Est GFR (MDRD) Non-Af 49 L, BUN/Creatinine Ratio 18.8, Glucose 235 H, Calcium 8.5, Phosphorus 2.4 L, Magnesium 1.8 01/26/23 12:09: POC Glucose 230 H Micro: Microbiology 01/26/23 12:56 Nasal Secretion SARS-CoV-2 Antigen (Rapid) - Final 01/21/23 09:15 Stool Stool Occult Blood (KLAUS) - Final Occult Blood Positive Rhythm Strip Rhythm Strip: Sinus Rhythm Rate: 90 Ectopy: PAC(s) Physical Exam Narrative Seen and examined. Discussed with the nursing staff. Patient is still having Mobitz type II AV block, but is less frequent. Heart rate in 50s.. Discussed with the construction project mgr. No chest pain or tightness. Physical exam General: Awake, mild lethargy. Cooperative. BMI 28.9 KG per square meter. HEENT: Atraumatic, PERRLA, EOMI, Normocephalic Oral: Oral mucosa moist. No Gingival or Mucosal Lesions/ Ulcerations Neck: Supple, No JVD, Negative Carotid Bruits Lungs: Air entry diminished in bilateral lung bases. No crepitation/rhonchi Cardiovascular: Irregular sinus rhythm, P wave present. Bradycardia. Normal S1, Normal S2, pansystolic murmur over cardiac apex. Abdomen: Bowel Sounds Present, Soft, Non Tender, Non-Distended : No renal angle tenderness. No suprapubic tenderness. Extremities: No edema, Capillary Refill Less than 3 Seconds Skin: No rashes, No breakdown Musculoskeletal: Muscle strength 4+/5 at knee and hip joints. ROM restricted. No Tenderness to Palpation of Joints or Extremities Neurological: Cranial nerves II-XII grossly intact, DTR 2+/4 and Symmetrical, Neuro grossly intact Psych/Mental Status: Flat affect. Amnesia/cognitive deficit. Dementia. Assessment & Plan Assessment/Plan (1) Anemia: QUALIFIERS: Anemia type: iron deficiency Iron deficiency anemia type: other iron deficiency Qualified Code(s): D50.8 - Other iron deficiency anemias (2) Warfarin-induced coagulopathy: (3) ABLA (acute blood loss anemia): PLAN: Plan 77-year-old with past medical history of PE, DVT presents with worsening shortness of breath and fatigue and discovered to have a significant anemia. Stools were checked for blood and neuro positive. He underwent an upper endoscopy after his INR was corrected and was discovered to have severe ulcerations of his duodenum. Biopsies were taken in the stomach for H. pylori and biopsies also were taken. Ulcerations were treated endoscopically. His hemoglobin seems to be stable. Recommendation: PPI can be switched to Protonix 40 mg p.o. every 12 hours. He will need sulcralfate 1 g p.o. 3 times a day for approximately 8 to 12 weeks. He can take the Protonix for 12 weeks. He will need repeat upper endoscopy in approximately 8 to 12 weeks to ensure healing. Charges/Coding Visit Charges Inpatient E&M: 31595 Subs Hosp L3 01/26/23 1550 <Electronically signed by Liu Hackett DO> Cosigner Signature (if applicable): CC: ~ Signed [facility] Work Phone: Progress note Author Smith Leija [facility] February 13, 2023 3:58pm Note Date/Time February 13, 2023 3:5 8pm [facility] Medical Records Department [address] [place] [address] Progress Note - Infect Disease 02/13/231556 MR#: [id number] Acct: [id number] Name: RICHARD ROY Rep #:[id number] : 1945 77 From: Smith huang MD PCP: Dr. Luis Caldera MD Status :ADM IN Location: [address] Physical Exam Narrative Feeling better, no fever, no abd pain Const alert and no apparent distress Resp normal air movement and clear to auscultation bilaterally Cardio regular rate and regular rhythm GI soft to palpation, non-tender and non-distended Skin no rashes or lesions noted ID ID: Route of nutrition/ use of supplements: [] Nutritional Intake: [] IV Site: [] Rodrigues Catheter: [] Assessment & Plan Assessment/Plan (1) Bacteremia: PLAN: klebs bacteremia from urinary source with recent pacer placement 02/04/23. On ceftriaxone. TTE showed no veg. Ok for home with one more week po keflex 500mg tid. Will follow, d/w Dr. Giraldo (2) Presence of cardiac pacemaker: 02/13/231557 <Electronically signed by Smith Leija MD> Cosigner Signature (if applicable): CC: ~ Signed [facility] Work Phone: Reason for referral (narrative)* Outpatient Procedure (Routine) - Closed Specialty Diagnoses / Procedures Referred By Linn t Referred To Contact [facility] Diagnoses Colon cancer screening Procedures COLONOSCOPY SCREENING COLONOSCOPY FLX DX W/COLLJ SPEC WHEN Marcella Alatorre PA-C [address] [place] [address] [facility] [place] [address] [place], [place] [id number] [place] [address] Referral ID Status Reason Start Date Expiration Date V isits Requested Visits Authorized [id number] Closed Auto-Generate d Referral 08/16/2021 08/16/2022 1 1 [facility] for referral (narrative)* Outpatient Procedure (Routine) - Closed Specialty Diagnoses / Procedures Referred By Contac t Referred To Contact [facility] Diagnoses Colon cancer screening Procedures COLONOSCOPY SCREENING COLONOSCOPY FLX DX W/COLLJ SPEC WHEN Marcella Alatorre PA-C [address] [place] [address] [facility] [address] [address] Referral ID Status Reason Start Date Expiration Date V isits Requested Visits Authorized [id number] Closed Auto-Generate d Referral 08/16/2021 08/16/2022 1 1 [facility] for referral (narrative)No reason for referral information availableWWVUMed[facility] Work Phone: Reason for visit Narrative* Outpatient Procedure (Routine) - Closed Specialty Diagnoses / Procedures Referred By Contac t Referred To Contact [facility] Diagnoses Colon cancer screening Procedures COLONOSCOPY SCREENING COLONOSCOPY FLX DX W/COLLJ SPEC WHEN Marcella Alatorre PA-C [address] [place] [address] [facility] [address] [address] Referral ID Status Reason Start Date Expiration Date V isits Requested Visits Authorized [id number] Closed Auto-Generate d Referral 08/16/2021 08/16/2022 1 1 [facility] for visit Narrative* Outpatient Procedure (Routine) - Closed Specialty Diagnoses / Procedures Referred By Contac t Ref[facility] Diagnoses Chronic anticoagulation Thoracic aortic aneurysm without rupture (HCC) Status post aortic valve repair Procedures ECHO TTE W/DOPPLER, COMPLETE Justina Monique, SYSTEMS INTEGRATION MANAGER.BARGAIN TABLE CLERK [address] [place] [address] [facility] [place] [address] [place] [address] Referral ID Status Reason Start Date Expiration Date V isits Requested Visits Authorized [id number] Closed Auto-Generate d Referral 07/03/2021 07/03/2022 1 1 [facility] Advance Directives No Advanced Directives Records FoundDocuments on File Type Date Recorded 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 Advance Directive(s) 09/12/2021 7:14 AM Documents on File Type Date Recorded 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 Advance Directive(s) 09/12/2021 7:14 AM Advance Directive Response Recorded Date/ Time Advance Directives Yes September 16 11:11pm Living Will No December 06, 2021 1 1:07pm Power of Forming Press Operator No December 06, 2021 11:07pm Advance Directive Response Recorded Date/ Time Name of Medical Power of Forming Press Operator Aníbal Roy December 27, 2021 10:36pm Advance Directives Yes September 16 11:11pm Living Will Yes December 27, 2021 10:36pm Power of Forming Press Operator Yes December 27 10:36pm Advance Directive Response Recorded Date/ Time Name of Medical Power of Forming Press Operator Aníbal Roy December 27, 2021 10:36pm Name of Medical Power of Forming Press Operator TEDDY ROY (SON ) March 02, 2022 2:34pm Advance Directives Yes September 16 11:11pm Living Will Yes March 02 2:34pm Power of Forming Press Operator Yes March 02 022 2:34pm Advance Directive Response Recorded Date/ Time Name of Medical Power of Forming Press Operator teddy roy July 10, 2022 3:06am Advance Directives Yes September 16 10:11pm Living Will Yes July 10, 022 3:06am Power of Forming Press Operator Yes July 10, 2022 3:06am Advance Directive Response Recorded Date/ Time Name of Medical Power of Forming Press Operator ? January 04, 2023 11:15am Advance Directives Yes September 16 14 11:11pm Living Will Yes January 04, 2023 11:15am Power of Forming Press Operator Yes January 04 11:15am Advance Directive Response Recorded Date/ Time Name of Medical Power of Forming Press Operator Ciarra Roy (spouse), Teddy Roy (son) January 04, 2023 6:23pm Name of Medical Power of Forming Press Operator ANÍBAL ROY January 21, 2023 8:26am Advance Directives Yes September 16 14 11:11pm Living Will Yes January 21, 2023 8:26am Power of Forming Press Operator Yes January 21 8:26am Advance Directive Response Recorded Date/ Time Name of Medical Power of Forming Press Operator Ciarra Roy (spouse), Teddy Roy (son) January 04, 2023 6:23pm Name of Medical Power of Forming Press Operator Ciarra Roy January 21, 2023 12:23pm Advance Directives Yes September 16 14 11:11pm Living Will Yes January 21, 2023 12:23pm Power of Forming Press Operator Yes January 21 12:23pm Advance Directive Response Recorded Date/ Time Name of Medical Power of Forming Press Operator Ciarra Roy (spouse), Teddy Roy (son) January 04, 2023 6:23pm Name of Medical Power of Forming Press Operator Ciarra Roy (spouse) January 27, 2023 6:04pm Advance Directives Yes September 16 11:11pm Living Will Yes January 27, 2023 6:04pm Power of Forming Press Operator Yes January 27 6:04pm Name of Medical Power of Forming Press Operator Ciarra Roy January 21, 2023 12:23pm Advance Directive Response Recorded Date/ Time Name of Medical Power of Forming Press Operator Ciarra Roy (spouse), Teddy Roy (son) January 04, 2023 6:23pm Name of Medical Power of Forming Press Operator Ciarra Roy January 27, 2023 9:40pm Name of Medical Power of Forming Press Operator Ciarra Robison, February 10, 2023 9:27pm Advance Directives Yes September 16 14 11:11pm Living Will Yes February 10, 2023 9:27pm Power of Forming Press Operator Yes February 10 9:27pm Name of Medical Power of Forming Press Operator Ciarra Roy January 21, 2023 12:23pm Advance Directive Response Recorded Date/ Time Name of Medical Power of Forming Press Operator Ciarra Roy (spouse), Teddy Roy (son) January 04, 2023 6:23pm Name of Medical Power of Forming Press Operator Ciarra Regant January 27, 2023 9:40pm Name of Medical Power of Forming Press Operator Ciarra Robison, February 10, 2023 9:27pm Name of Medical Power of Forming Press Operator RICHARDCiarra Crooks, February 11, 2023 4:25pm Advance Directives Yes September 16 11:11pm Living Will Yes February 11, 2023 4:25pm Power of Forming Press Operator Yes February 11 4:25pm Name of Medical Power of Forming Press Operator Ciarra Regant January 21, 2023 12:23pm Advance Directive Response Recorded Date/ Time Name of Medical Power of Forming Press Operator Ciarra Roy (spouse), Teddy Roy (son) January 04, 2023 6:23pm Name of Medical Power of Forming Press Operator Ciarra Regant January 27, 2023 9:40pm Name of Medical Power of Forming Press Operator Ciarra Robison, February 10, 2023 9:27pm Name of Medical Power of Forming Press Operator RICHARDDakshaArthurel, February 11, 2023 8:40pm Advance Directives Yes September 16 11:11pm Living Will Yes February 11, 2023 8:40pm Power of Forming Press Operator Yes February 11 8:40pm Name of Medical Power of Forming Press Operator Ciarra Roy January 21, 2023 12:23pm Advance Directive Response Recorded Date/ Time Name of Medical Power of Forming Press Operator Ciarra Roy January 27, 2023 9:40pm Name of Medical Power of Forming Press Operator Ciarra Robison, February 10, 2023 9:27pm Name of Medical Power of Forming Press Operator RICHARDCiarra Crooks, w david February 11, 2023 8:40pm Advance Directives Yes September 16 11:11pm Living Will Yes February 11, 2023 8:40pm Power of Forming Press Operator Yes February 11 8:40pm Name of Medical Power of Forming Press Operator Ciarra Roy January 21, 2023 12:23pm Advance Directive Response Recorded Date/ Time Name of Medical Power of Forming Press Operator Ciarra Roy January 27, 2023 8:40pm Name of Medical Power of Forming Press Operator Ciarra Robison, February 10, 2023 8:27pm Name of Medical Power of Forming Press Operator Ciarra MEEKS, w david February 11, 2023 7:40pm Advance Directives Yes September 16 10:11pm Living Will Yes February 11, 2023 7:40pm Power of Forming Press Operator Yes February 11 7:40pm Name of Medical Power of Forming Press Operator Ciarra Roy January 21, 2023 11:23am Advance Directive Response Recorded Date/ Time Name of Medical Power of Forming Press Operator Ciarra Ryo January 27, 2023 8:40pm Name of Medical Power of Forming Press Operator Ciarra Robison, February 10, 2023 8:27pm Name of Medical Power of Forming Press Operator Ciarra MEEKS, w david February 11, 2023 7:40pm Advance Directives Yes September 16 10:11pm Living Will No May 30 023 11:36am Power of Forming Press Operator No May 30, 2023 11:36am Advance Directive Response Recorded Date/ Time Advance Directives Yes September 16 10:11pm Living Will No May 30 023 11:36am Power of Forming Press Operator No May 30, 2023 11:36am Advance Directive Response Recorded Date/ Time Advance Directives Yes September 16 11:11pm Living Will No May 30 12:36pm Power of Forming Press Operator No May 30, 2023 12:36pm Advance Directive Response Recorded Date/ Time Advance Directives Yes September 16 11:11pm Medications Administered Section Inactive Administered Medications - up to 3 most recent administrations Medication Order MAR Action Action Date Dose Rate Site fentaNYL 50 mcg/mL 25-100 mcg injection (SUBLIMAZE) 25-100 mcg, INTRAVENOUS, DIRECTED, Starting on Sat10/10/21 at 0900, Until Sat10/10/21 at 1259, DOSING DIRECTED BY PHYSICIAN FOR PROCEDURAL SEDATION ONLY, Intraprocedure Given 10/10/2021 9:07 AM EDT 25 mcg Given 10/10/2021 9:05 AM EDT 50 mcg lactated ringers iv infusion 30 mL/hr, INTRAVENOUS, CONTINUOUS, Starting on Sat10/10/21 at 0800, Until Sat10/10/21 at 0935, Preprocedure New Bag/Syringe/Bottle 10/10/2021 8:00 AM EDT 30 mL/hr 30 mL/hr midazolam (PF) 1-5 mg injection (VERSED) 1-5 mg, INTRAVENOUS, DIRECTED, Starting on Sat10/10/21 at 0900, Until Sat10/10/21 at 1259, DOSING DIRECTED BY PHYSICIAN FOR PROCEDURAL SEDATION ONLY, Intraprocedure Given 10/10/2021 9:06 AM EDT 1 mg Given 10/10/2021 9:05 AM EDT 3 mg Chief Complaint and Reason for Visit Chief Complaint weakness Chief Complaint weakness dehydration/ heat exhaustion dehydration/ heat exhaustion dehydration/ heat exhaustion dehydration/ heat exhaustion Reason for Visit Acute dehydration ANTHONY (acute kidney injury) Heat exhaustion Hyperkalemia Lactic acidosis Leukocytosis Chief Complaint weakness dehydration/ heat exhaustion dehydration/ heat exhaustion dehydration/ heat exhaustion dehydration/ heat exhaustion WEAKNESS Reason for Visit Acute dehydration Heat exhaustion Chief Complaint NSTEMI, ? TIA/? SYNC OPE NSTEMI, ? TIA/? SYNCOPE NSTEMI, ? TIA/? SYNCOPE NSTEMI, ? TIA/? SYNCOPE Reason for Visit History of pulmonary embolism History of thoracic aortic aneurysm repair NSTEMI, initial episode of care HTN (hypertension) Chief Complaint CONFUSION, WEAKNESS Reason for Visit Confusion Weakness Chief Complaint CONFUSION, WEAKNESS CONFUSION, WEAKNESS CONFUSION, WEAKNESS CONFUSION, WEAKNESS CONFUSION, WEAKNESS CONFUSION, WEAKNESS GI BLEED, SYNCOPE Reason for Visit Confusion Weakness ABLA (acute blood loss anemia) Acute encephalopathy Supratherapeutic INR Syncope Upper gastrointestinal bleeding Warfarin-induced coagulopathy Chief Complaint CONFUSION, WEAKNESS CONFUSION, WEAKNESS CONFUSION, WEAKNESS CONFUSION, WEAKNESS CONFUSION, WEAKNESS CONFUSION, WEAKNESS GI BLEED, SYNCOPE GI BLEED, SYNCOPE GI BLEED, SYNCOPE GI BLEED, SYNCOPE GI BLEED, SYNCOPE GI BLEED, SYNCOPE GI BLEED, SYNCOPE GI BLEED, SYNCOPE GI BLEED, SYNCOPE GI BLEED, SYNCOPE GI BLEED, SYNCOPE GI BLEED, SYNCOPE GI BLEED, SYNCOPE GI BLEED, SYNCOPE Reason for Visit Confusion Weakness ABLA (acute blood loss anemia) Acute encephalopathy Anemia History of pulmonary embolism History of thoracic aortic aneurysm repair Second degree AV block, Mobitz type II Supratherapeutic INR Syncope Upper gastrointestinal bleeding Valvular heart disease Warfarin-induced coagulopathy HTN (hypertension) Chief Complaint CONFUSION, WEAKNESS CONFUSION, WEAKNESS CONFUSION, WEAKNESS CONFUSION, WEAKNESS CONFUSION, WEAKNESS CONFUSION, WEAKNESS GI BLEED, SYNCOPE GI BLEED, SYNCOPE GI BLEED, SYNCOPE GI BLEED, SYNCOPE GI BLEED, SYNCOPE GI BLEED, SYNCOPE GI BLEED, SYNCOPE GI BLEED, SYNCOPE GI BLEED, SYNCOPE GI BLEED, SYNCOPE GI BLEED, SYNCOPE GI BLEED, SYNCOPE GI BLEED, SYNCOPE GI BLEED, SYNCOPE RECURRENT GI BLEED Reason for Visit Confusion Weakness ABLA (acute blood loss anemia) Acute encephalopathy Anemia History of pulmonary embolism History of thoracic aortic aneurysm repair Second degree AV block, Mobitz type II Supratherapeutic INR Syncope Upper gastrointestinal bleeding Valvular heart disease Warfarin-induced coagulopathy HTN (hypertension) Chief Complaint CONFUSION, WEAKNESS CONFUSION, WEAKNESS CONFUSION, WEAKNESS CONFUSION, WEAKNESS CONFUSION, WEAKNESS CONFUSION, WEAKNESS GI BLEED, SYNCOPE GI BLEED, SYNCOPE GI BLEED, SYNCOPE GI BLEED, SYNCOPE GI BLEED, SYNCOPE GI BLEED, SYNCOPE GI BLEED, SYNCOPE GI BLEED, SYNCOPE GI BLEED, SYNCOPE GI BLEED, SYNCOPE GI BLEED, SYNCOPE GI BLEED, SYNCOPE GI BLEED, SYNCOPE GI BLEED, SYNCOPE RECURRENT GI BLEED RECURRENT GI BLEED RECURRENT GI BLEED RECURRENT GI BLEED RECURRENT GI BLEED RECURRENT GI BLEED RECURRENT GI BLEED RECURRENT GI BLEED RECURRENT GI BLEED RECURRENT GI BLEED RECURRENT GI BLEED RECURRENT GI BLEED RECURRENT GI BLEED RECURRENT GI BLEED INPATIENT 1st day post implant check RECURRENT GI BLEED AMS Reason for Visit Confusion Weakness ABLA (acute blood loss anemia) Acute encephalopathy History of pulmonary embolism History of thoracic aortic aneurysm repair Second degree AV block, Mobitz type II Supratherapeutic INR Syncope Warfarin-induced coagulopathy HTN (hypertension) Upper gastrointestinal bleeding ABLA (acute blood loss anemia) Second degree AV block, Mobitz type II Sick sinus syndrome Warfarin-induced coagulopathy HTN (hypertension) Upper gastrointestinal bleeding Presence of cardiac pacemaker Second degree AV block, Mobitz type II Sick sinus syndrome Chief Complaint CONFUSION, WEAKNESS CONFUSION, WEAKNESS CONFUSION, WEAKNESS CONFUSION, WEAKNESS CONFUSION, WEAKNESS CONFUSION, WEAKNESS GI BLEED, SYNCOPE GI BLEED, SYNCOPE GI BLEED, SYNCOPE GI BLEED, SYNCOPE GI BLEED, SYNCOPE GI BLEED, SYNCOPE GI BLEED, SYNCOPE GI BLEED, SYNCOPE GI BLEED, SYNCOPE GI BLEED, SYNCOPE GI BLEED, SYNCOPE GI BLEED, SYNCOPE GI BLEED, SYNCOPE GI BLEED, SYNCOPE RECURRENT GI BLEED RECURRENT GI BLEED RECURRENT GI BLEED RECURRENT GI BLEED RECURRENT GI BLEED RECURRENT GI BLEED RECURRENT GI BLEED RECURRENT GI BLEED RECURRENT GI BLEED RECURRENT GI BLEED RECURRENT GI BLEED RECURRENT GI BLEED RECURRENT GI BLEED RECURRENT GI BLEED INPATIENT 1st day post implant check RECURRENT GI BLEED AMS UTI Reason for Visit Confusion Weakness ABLA (acute blood loss anemia) Acute encephalopathy History of pulmonary embolism History of thoracic aortic aneurysm repair Second degree AV block, Mobitz type II Supratherapeutic INR Syncope Warfarin-induced coagulopathy HTN (hypertension) Upper gastrointestinal bleeding ABLA (acute blood loss anemia) Second degree AV block, Mobitz type II Sick sinus syndrome Warfarin-induced coagulopathy HTN (hypertension) Upper gastrointestinal bleeding Presence of cardiac pacemaker Second degree AV block, Mobitz type II Sick sinus syndrome Bacteremia Subtherapeutic international normalized ratio (INR) UTI (urinary tract infection) Chief Complaint CONFUSION, WEAKNESS CONFUSION, WEAKNESS CONFUSION, WEAKNESS CONFUSION, WEAKNESS CONFUSION, WEAKNESS CONFUSION, WEAKNESS GI BLEED, SYNCOPE GI BLEED, SYNCOPE GI BLEED, SYNCOPE GI BLEED, SYNCOPE GI BLEED, SYNCOPE GI BLEED, SYNCOPE GI BLEED, SYNCOPE GI BLEED, SYNCOPE GI BLEED, SYNCOPE GI BLEED, SYNCOPE GI BLEED, SYNCOPE GI BLEED, SYNCOPE GI BLEED, SYNCOPE GI BLEED, SYNCOPE RECURRENT GI BLEED RECURRENT GI BLEED RECURRENT GI BLEED RECURRENT GI BLEED RECURRENT GI BLEED RECURRENT GI BLEED RECURRENT GI BLEED RECURRENT GI BLEED RECURRENT GI BLEED RECURRENT GI BLEED RECURRENT GI BLEED RECURRENT GI BLEED RECURRENT GI BLEED RECURRENT GI BLEED RECURRENT GI BLEED INPATIENT 1st day post implant check RECURRENT GI BLEED INTERMEDIATE LABWORK AMS BACTEREMIA, CYSTITIS Urinary tract infection BACTEREMIA, CYSTITIS BACTEREMIA, CYSTITIS Reason for Visit Confusion Weakness Acute encephalopathy History of pulmonary embolism History of thoracic aortic aneurysm repair Supratherapeutic INR Syncope ABLA (acute blood loss anemia) Upper gastrointestinal bleeding Warfarin-induced coagulopathy ABLA (acute blood loss anemia) Upper gastrointestinal bleeding Warfarin-induced coagulopathy Presence of cardiac pacemaker Bacteremia Confusion Delirium Presence of cardiac pacemaker Subtherapeutic international normalized ratio (INR) UTI (urinary tract infection) Weakness Chief Complaint CONFUSION, WEAKNESS CONFUSION, WEAKNESS CONFUSION, WEAKNESS CONFUSION, WEAKNESS CONFUSION, WEAKNESS CONFUSION, WEAKNESS GI BLEED, SYNCOPE GI BLEED, SYNCOPE GI BLEED, SYNCOPE RHYTHM CHANGE GI BLEED, SYNCOPE GI BLEED, SYNCOPE GI BLEED, SYNCOPE GI BLEED, SYNCOPE GI BLEED, SYNCOPE EKG GI BLEED, SYNCOPE GI BLEED, SYNCOPE GI BLEED, SYNCOPE GI BLEED, SYNCOPE GI BLEED, SYNCOPE GI BLEED, SYNCOPE RECURRENT GI BLEED ABN RHYTHM RECURRENT GI BLEED RECURRENT GI BLEED RECURRENT GI BLEED RECURRENT GI BLEED RECURRENT GI BLEED RECURRENT GI BLEED RECURRENT GI BLEED RECURRENT GI BLEED RECURRENT GI BLEED RECURRENT GI BLEED RECURRENT GI BLEED RECURRENT GI BLEED RECURRENT GI BLEED RECURRENT GI BLEED INPATIENT 1st day post implant check RECURRENT GI BLEED INTERMEDIATE LABWORK AMS LAB WORK BACTEREMIA, CYSTITIS Urinary tract infection BACTEREMIA, CYSTITIS BACTEREMIA, CYSTITIS LAB WORK LAB WORK 1 wk wound check LABWORK LABWORK LABWORK LABWORK LABWORK INTERMEDIATE LABWORK LABWORK 6 wk post PPM implant f/u / KR @ 2p S/P PACER IMPLANT 6 wk fu / NAA @ 1:30 LABWORK Reason for Visit Confusion Weakness Acute encephalopathy History of pulmonary embolism History of thoracic aortic aneurysm repair Supratherapeutic INR Syncope HTN (hypertension) Second degree AV block, Mobitz type II ABLA (acute blood loss anemia) Upper gastrointestinal bleeding Warfarin-induced coagulopathy HTN (hypertension) Second degree AV block, Mobitz type II Sick sinus syndrome ABLA (acute blood loss anemia) Upper gastrointestinal bleeding Warfarin-induced coagulopathy Presence of cardiac pacemaker Second degree AV block, Mobitz type II Sick sinus syndrome Bacteremia Confusion Presence of cardiac pacemaker Subtherapeutic international normalized ratio (INR) UTI (urinary tract infection) Weakness Atrial tachycardia Presence of cardiac pacemaker Second degree AV block, Mobitz type II Sick sinus syndrome Presence of cardiac pacemaker Syncope Second degree AV block, Mobitz type II Sick sinus syndrome Atrial fibrillation HLD (hyperlipidemia) Presence of cardiac pacemaker HTN (hypertension) Second degree AV block, Mobitz type II Chief Complaint CONFUSION, WEAKNESS CONFUSION, WEAKNESS CONFUSION, WEAKNESS CONFUSION, WEAKNESS CONFUSION, WEAKNESS CONFUSION, WEAKNESS GI BLEED, SYNCOPE GI BLEED, SYNCOPE GI BLEED, SYNCOPE RHYTHM CHANGE GI BLEED, SYNCOPE GI BLEED, SYNCOPE GI BLEED, SYNCOPE GI BLEED, SYNCOPE GI BLEED, SYNCOPE EKG GI BLEED, SYNCOPE GI BLEED, SYNCOPE GI BLEED, SYNCOPE GI BLEED, SYNCOPE GI BLEED, SYNCOPE GI BLEED, SYNCOPE RECURRENT GI BLEED ABN RHYTHM RECURRENT GI BLEED RECURRENT GI BLEED RECURRENT GI BLEED RECURRENT GI BLEED RECURRENT GI BLEED RECURRENT GI BLEED RECURRENT GI BLEED RECURRENT GI BLEED RECURRENT GI BLEED RECURRENT GI BLEED RECURRENT GI BLEED RECURRENT GI BLEED RECURRENT GI BLEED RECURRENT GI BLEED INPATIENT 1st day post implant check RECURRENT GI BLEED INTERMEDIATE LABWORK AMS LAB WORK BACTEREMIA, CYSTITIS Urinary tract infection BACTEREMIA, CYSTITIS BACTEREMIA, CYSTITIS LAB WORK LAB WORK 1 wk wound check LABWORK LABWORK LABWORK LABWORK LABWORK INTERMEDIATE LABWORK LABWORK 6 wk post PPM implant f/u / KR @ 2p S/P PACER IMPLANT 6 wk fu / NAA @ 1:30 LABWORK INTERMEDIATE LAB WORK INTERMEDIATE LABWORK INTERMEDIATE LAB WORK Reason for Visit Confusion Weakness Acute encephalopathy History of pulmonary embolism History of thoracic aortic aneurysm repair Supratherapeutic INR Syncope HTN (hypertension) Second degree AV block, Mobitz type II ABLA (acute blood loss anemia) Upper gastrointestinal bleeding Warfarin-induced coagulopathy HTN (hypertension) Second degree AV block, Mobitz type II Sick sinus syndrome ABLA (acute blood loss anemia) Upper gastrointestinal bleeding Warfarin-induced coagulopathy Presence of cardiac pacemaker Second degree AV block, Mobitz type II Sick sinus syndrome Bacteremia Confusion Presence of cardiac pacemaker Subtherapeutic international normalized ratio (INR) UTI (urinary tract infection) Weakness Atrial tachycardia Presence of cardiac pacemaker Second degree AV block, Mobitz type II Sick sinus syndrome Presence of cardiac pacemaker Syncope Second degree AV block, Mobitz type II Sick sinus syndrome Atrial fibrillation HLD (hyperlipidemia) Presence of cardiac pacemaker HTN (hypertension) Second degree AV block, Mobitz type II Chief Complaint CONFUSION, WEAKNESS CONFUSION, WEAKNESS CONFUSION, WEAKNESS CONFUSION, WEAKNESS CONFUSION, WEAKNESS CONFUSION, WEAKNESS GI BLEED, SYNCOPE GI BLEED, SYNCOPE GI BLEED, SYNCOPE RHYTHM CHANGE GI BLEED, SYNCOPE GI BLEED, SYNCOPE GI BLEED, SYNCOPE GI BLEED, SYNCOPE GI BLEED, SYNCOPE EKG GI BLEED, SYNCOPE GI BLEED, SYNCOPE GI BLEED, SYNCOPE GI BLEED, SYNCOPE GI BLEED, SYNCOPE GI BLEED, SYNCOPE RECURRENT GI BLEED ABN RHYTHM RECURRENT GI BLEED RECURRENT GI BLEED RECURRENT GI BLEED RECURRENT GI BLEED RECURRENT GI BLEED RECURRENT GI BLEED RECURRENT GI BLEED RECURRENT GI BLEED RECURRENT GI BLEED RECURRENT GI BLEED RECURRENT GI BLEED RECURRENT GI BLEED RECURRENT GI BLEED RECURRENT GI BLEED INPATIENT 1st day post implant check RECURRENT GI BLEED INTERMEDIATE LABWORK AMS LAB WORK BACTEREMIA, CYSTITIS Urinary tract infection BACTEREMIA, CYSTITIS BACTEREMIA, CYSTITIS LAB WORK LAB WORK 1 wk wound check LABWORK LABWORK LABWORK LABWORK LABWORK INTERMEDIATE LABWORK LABWORK 6 wk post PPM implant f/u / KR @ 2p S/P PACER IMPLANT 6 wk fu / NAA @ 1:30 LABWORK INTERMEDIATE LAB WORK INTERMEDIATE LABWORK INTERMEDIATE LAB WORK INTERMEDIATE LAB WORK Reason for Visit Confusion Weakness Acute encephalopathy History of pulmonary embolism History of thoracic aortic aneurysm repair Supratherapeutic INR Syncope HTN (hypertension) Second degree AV block, Mobitz type II ABLA (acute blood loss anemia) Upper gastrointestinal bleeding Warfarin-induced coagulopathy HTN (hypertension) Second degree AV block, Mobitz type II Sick sinus syndrome ABLA (acute blood loss anemia) Upper gastrointestinal bleeding Warfarin-induced coagulopathy Presence of cardiac pacemaker Second degree AV block, Mobitz type II Sick sinus syndrome Bacteremia Confusion Presence of cardiac pacemaker Subtherapeutic international normalized ratio (INR) UTI (urinary tract infection) Weakness Atrial tachycardia Presence of cardiac pacemaker Second degree AV block, Mobitz type II Sick sinus syndrome Presence of cardiac pacemaker Syncope Second degree AV block, Mobitz type II Sick sinus syndrome Atrial fibrillation HLD (hyperlipidemia) Presence of cardiac pacemaker HTN (hypertension) Second degree AV block, Mobitz type II Chief Complaint GI BLEED, SYNCOPE GI BLEED, SYNCOPE GI BLEED, SYNCOPE RHYTHM CHANGE GI BLEED, SYNCOPE GI BLEED, SYNCOPE GI BLEED, SYNCOPE GI BLEED, SYNCOPE GI BLEED, SYNCOPE EKG GI BLEED, SYNCOPE GI BLEED, SYNCOPE GI BLEED, SYNCOPE GI BLEED, SYNCOPE GI BLEED, SYNCOPE GI BLEED, SYNCOPE RECURRENT GI BLEED ABN RHYTHM RECURRENT GI BLEED RECURRENT GI BLEED RECURRENT GI BLEED RECURRENT GI BLEED RECURRENT GI BLEED RECURRENT GI BLEED RECURRENT GI BLEED RECURRENT GI BLEED RECURRENT GI BLEED RECURRENT GI BLEED RECURRENT GI BLEED RECURRENT GI BLEED RECURRENT GI BLEED RECURRENT GI BLEED INPATIENT 1st day post implant check RECURRENT GI BLEED INTERMEDIATE LABWORK AMS LAB WORK BACTEREMIA, CYSTITIS Urinary tract infection BACTEREMIA, CYSTITIS BACTEREMIA, CYSTITIS LAB WORK LAB WORK 1 wk wound check LABWORK LABWORK LABWORK LABWORK LABWORK INTERMEDIATE LABWORK LABWORK 6 wk post PPM implant f/u / KR @ 2p S/P PACER IMPLANT 6 wk fu / NAA @ 1:30 LABWORK INTERMEDIATE LAB WORK INTERMEDIATE LABWORK INTERMEDIATE LAB WORK INTERMEDIATE LAB WORK LABWORK Reason for Visit Acute encephalopathy History of pulmonary embolism History of thoracic aortic aneurysm repair Supratherapeutic INR Syncope HTN (hypertension) Second degree AV block, Mobitz type II ABLA (acute blood loss anemia) Upper gastrointestinal bleeding Warfarin-induced coagulopathy HTN (hypertension) Second degree AV block, Mobitz type II Sick sinus syndrome ABLA (acute blood loss anemia) Upper gastrointestinal bleeding Warfarin-induced coagulopathy Presence of cardiac pacemaker Second degree AV block, Mobitz type II Sick sinus syndrome Bacteremia Confusion Presence of cardiac pacemaker Subtherapeutic international normalized ratio (INR) UTI (urinary tract infection) Weakness Atrial tachycardia Presence of cardiac pacemaker Second degree AV block, Mobitz type II Sick sinus syndrome Presence of cardiac pacemaker Syncope Second degree AV block, Mobitz type II Sick sinus syndrome Atrial fibrillation HLD (hyperlipidemia) Presence of cardiac pacemaker HTN (hypertension) Second degree AV block, Mobitz type II Chief Complaint GI BLEED, SYNCOPE GI BLEED, SYNCOPE GI BLEED, SYNCOPE RHYTHM CHANGE GI BLEED, SYNCOPE GI BLEED, SYNCOPE GI BLEED, SYNCOPE GI BLEED, SYNCOPE GI BLEED, SYNCOPE EKG GI BLEED, SYNCOPE GI BLEED, SYNCOPE GI BLEED, SYNCOPE GI BLEED, SYNCOPE GI BLEED, SYNCOPE GI BLEED, SYNCOPE RECURRENT GI BLEED ABN RHYTHM RECURRENT GI BLEED RECURRENT GI BLEED RECURRENT GI BLEED RECURRENT GI BLEED RECURRENT GI BLEED RECURRENT GI BLEED RECURRENT GI BLEED RECURRENT GI BLEED RECURRENT GI BLEED RECURRENT GI BLEED RECURRENT GI BLEED RECURRENT GI BLEED RECURRENT GI BLEED RECURRENT GI BLEED INPATIENT 1st day post implant check RECURRENT GI BLEED INTERMEDIATE LABWORK AMS LAB WORK BACTEREMIA, CYSTITIS Urinary tract infection BACTEREMIA, CYSTITIS BACTEREMIA, CYSTITIS LAB WORK LAB WORK 1 wk wound check LABWORK LABWORK LABWORK LABWORK LABWORK INTERMEDIATE LABWORK LABWORK 6 wk post PPM implant f/u / KR @ 2p S/P PACER IMPLANT 6 wk fu / NAA @ 1:30 LABWORK INTERMEDIATE LAB WORK INTERMEDIATE LABWORK INTERMEDIATE LAB WORK INTERMEDIATE LAB WORK LABWORK LABWORK Reason for Visit Acute encephalopathy History of pulmonary embolism History of thoracic aortic aneurysm repair Supratherapeutic INR Syncope HTN (hypertension) Second degree AV block, Mobitz type II ABLA (acute blood loss anemia) Upper gastrointestinal bleeding Warfarin-induced coagulopathy HTN (hypertension) Second degree AV block, Mobitz type II Sick sinus syndrome ABLA (acute blood loss anemia) Upper gastrointestinal bleeding Warfarin-induced coagulopathy Presence of cardiac pacemaker Second degree AV block, Mobitz type II Sick sinus syndrome Bacteremia Confusion Presence of cardiac pacemaker Subtherapeutic international normalized ratio (INR) UTI (urinary tract infection) Weakness Atrial tachycardia Presence of cardiac pacemaker Second degree AV block, Mobitz type II Sick sinus syndrome Presence of cardiac pacemaker Syncope Second degree AV block, Mobitz type II Sick sinus syndrome Atrial fibrillation HLD (hyperlipidemia) Presence of cardiac pacemaker HTN (hypertension) Second degree AV block, Mobitz type II Chief Complaint RECURRENT GI BLEED RECURRENT GI BLEED RECURRENT GI BLEED RECURRENT GI BLEED RECURRENT GI BLEED RECURRENT GI BLEED RECURRENT GI BLEED RECURRENT GI BLEED RECURRENT GI BLEED RECURRENT GI BLEED RECURRENT GI BLEED RECURRENT GI BLEED INPATIENT 1st day post implant check RECURRENT GI BLEED INTERMEDIATE LABWORK AMS LAB WORK BACTEREMIA, CYSTITIS Urinary tract infection BACTEREMIA, CYSTITIS BACTEREMIA, CYSTITIS LAB WORK LAB WORK 1 wk wound check LABWORK LABWORK LABWORK LABWORK LABWORK INTERMEDIATE LABWORK LABWORK 6 wk post PPM implant f/u / KR @ 2p S/P PACER IMPLANT 6 wk fu / NAA @ 1:30 LABWORK INTERMEDIATE LAB WORK INTERMEDIATE LABWORK INTERMEDIATE LAB WORK INTERMEDIATE LAB WORK LABWORK LABWORK INTERMEDIATE LAB WORK Reason for Visit HTN (hypertension) Second degree AV block, Mobitz type II Sick sinus syndrome ABLA (acute blood loss anemia) Upper gastrointestinal bleeding Warfarin-induced coagulopathy Presence of cardiac pacemaker Second degree AV block, Mobitz type II Sick sinus syndrome Bacteremia Confusion Presence of cardiac pacemaker Subtherapeutic international normalized ratio (INR) UTI (urinary tract infection) Weakness Atrial tachycardia Presence of cardiac pacemaker Second degree AV block, Mobitz type II Sick sinus syndrome Presence of cardiac pacemaker Syncope Second degree AV block, Mobitz type II Sick sinus syndrome Atrial fibrillation HLD (hyperlipidemia) Presence of cardiac pacemaker HTN (hypertension) Second degree AV block, Mobitz type II Chief Complaint RECURRENT GI BLEED RECURRENT GI BLEED RECURRENT GI BLEED RECURRENT GI BLEED RECURRENT GI BLEED INPATIENT 1st day post implant check RECURRENT GI BLEED INTERMEDIATE LABWORK AMS LAB WORK BACTEREMIA, CYSTITIS Urinary tract infection BACTEREMIA, CYSTITIS BACTEREMIA, CYSTITIS LAB WORK LAB WORK 1 wk wound check LABWORK LABWORK LABWORK LABWORK LABWORK INTERMEDIATE LABWORK LABWORK 6 wk post PPM implant f/u / KR @ 2p S/P PACER IMPLANT 6 wk fu / NAA @ 1:30 LABWORK INTERMEDIATE LAB WORK INTERMEDIATE LABWORK INTERMEDIATE LAB WORK INTERMEDIATE LAB WORK LABWORK LABWORK INTERMEDIATE LAB WORK Reason for Visit HTN (hypertension) Second degree AV block, Mobitz type II Sick sinus syndrome ABLA (acute blood loss anemia) Upper gastrointestinal bleeding Warfarin-induced coagulopathy Presence of cardiac pacemaker Second degree AV block, Mobitz type II Sick sinus syndrome Bacteremia Confusion Presence of cardiac pacemaker Subtherapeutic international normalized ratio (INR) UTI (urinary tract infection) Weakness Atrial tachycardia Presence of cardiac pacemaker Second degree AV block, Mobitz type II Sick sinus syndrome Presence of cardiac pacemaker Syncope Second degree AV block, Mobitz type II Sick sinus syndrome Atrial fibrillation HLD (hyperlipidemia) Presence of cardiac pacemaker HTN (hypertension) Second degree AV block, Mobitz type II Chief Complaint LABWORK LABWORK LABWORK LABWORK INTERMEDIATE LABWORK LABWORK 6 wk post PPM implant f/u / KR @ 2p S/P PACER IMPLANT 6 wk fu / NAA @ 1:30 LABWORK INTERMEDIATE LAB WORK INTERMEDIATE LABWORK INTERMEDIATE LAB WORK INTERMEDIATE LAB WORK LABWORK LABWORK INTERMEDIATE LAB WORK LABWORK Reason for Visit Presence of cardiac pacemaker Syncope Second degree AV block, Mobitz type II Sick sinus syndrome Atrial fibrillation HLD (hyperlipidemia) Presence of cardiac pacemaker HTN (hypertension) Second degree AV block, Mobitz type II Chief Complaint LABWORK INTERMEDIATE LABWORK LABWORK 6 wk post PPM implant f/u / KR @ 2p S/P PACER IMPLANT 6 wk fu / NAA @ 1:30 LABWORK INTERMEDIATE LAB WORK INTERMEDIATE LABWORK INTERMEDIATE LAB WORK INTERMEDIATE LAB WORK LABWORK LABWORK INTERMEDIATE LAB WORK INTERMEDIATE LAB WORK LABWORK LABWORK Reason for Visit Presence of cardiac pacemaker Syncope Second degree AV block, Mobitz type II Sick sinus syndrome Atrial fibrillation HLD (hyperlipidemia) Presence of cardiac pacemaker HTN (hypertension) Second degree AV block, Mobitz type II Chief Complaint INTERMEDIATE LABWORK LABWORK 6 wk post PPM implant f/u / KR @ 2p S/P PACER IMPLANT 6 wk fu / NAA @ 1:30 LABWORK INTERMEDIATE LAB WORK INTERMEDIATE LABWORK INTERMEDIATE LAB WORK INTERMEDIATE LAB WORK LABWORK LABWORK INTERMEDIATE LAB WORK INTERMEDIATE LAB WORK LABWORK INTERMEDIATE LAB WORK LABWORK Reason for Visit Presence of cardiac pacemaker Syncope Second degree AV block, Mobitz type II Sick sinus syndrome Atrial fibrillation HLD (hyperlipidemia) Presence of cardiac pacemaker HTN (hypertension) Second degree AV block, Mobitz type II Chief Complaint LABWORK 6 wk post PPM implant f/u / KR @ 2p S/P PACER IMPLANT 6 wk fu / NAA @ 1:30 LABWORK INTERMEDIATE LAB WORK INTERMEDIATE LABWORK INTERMEDIATE LAB WORK INTERMEDIATE LAB WORK LABWORK LABWORK INTERMEDIATE LAB WORK INTERMEDIATE LAB WORK LABWORK INTERMEDIATE LAB WORK LABWORK LABWORK Reason for Visit Presence of cardiac pacemaker Syncope Second degree AV block, Mobitz type II Sick sinus syndrome Atrial fibrillation HLD (hyperlipidemia) Presence of cardiac pacemaker HTN (hypertension) Second degree AV block, Mobitz type II Chief Complaint LABWORK 6 wk post PPM implant f/u / KR @ 2p S/P PACER IMPLANT 6 wk fu / NAA @ 1:30 LABWORK INTERMEDIATE LAB WORK INTERMEDIATE LABWORK INTERMEDIATE LAB WORK INTERMEDIATE LAB WORK LABWORK LABWORK INTERMEDIATE LAB WORK INTERMEDIATE LAB WORK LABWORK INTERMEDIATE LAB WORK INTERMEDIATE LABWORK LABWORK LABWORK Reason for Visit Presence of cardiac pacemaker Syncope Second degree AV block, Mobitz type II Sick sinus syndrome Atrial fibrillation HLD (hyperlipidemia) Presence of cardiac pacemaker HTN (hypertension) Second degree AV block, Mobitz type II Chief Complaint 6 wk post PPM implan t f/u / KR @ 2p S/P PACER IMPLANT 6 wk fu / NAA @ 1:30 LABWORK INTERMEDIATE LAB WORK INTERMEDIATE LABWORK INTERMEDIATE LAB WORK INTERMEDIATE LAB WORK LABWORK LABWORK INTERMEDIATE LAB WORK INTERMEDIATE LAB WORK LABWORK INTERMEDIATE LAB WORK INTERMEDIATE LABWORK LABWORK INTERMEDIATE LAB WORK LABWORK Reason for Visit Presence of cardiac pacemaker Syncope Second degree AV block, Mobitz type II Sick sinus syndrome Atrial fibrillation HLD (hyperlipidemia) Presence of cardiac pacemaker HTN (hypertension) Second degree AV block, Mobitz type II Chief Complaint LABWORK INTERMEDIATE LAB WORK INTERMEDIATE LABWORK INTERMEDIATE LAB WORK INTERMEDIATE LAB WORK LABWORK LABWORK INTERMEDIATE LAB WORK INTERMEDIATE LAB WORK LABWORK INTERMEDIATE LAB WORK INTERMEDIATE LABWORK LABWORK INTERMEDIATE LAB WORK LABWORK LABWORK LABWORK Chief Complaint INTERMEDIATE LAB WOR K INTERMEDIATE LABWORK INTERMEDIATE LAB WORK INTERMEDIATE LAB WORK LABWORK LABWORK INTERMEDIATE LAB WORK INTERMEDIATE LAB WORK LABWORK INTERMEDIATE LAB WORK INTERMEDIATE LABWORK LABWORK INTERMEDIATE LAB WORK LABWORK LABWORK LABWORK LABWORK Chief Complaint INTERMEDIATE LAB WOR K INTERMEDIATE LAB WORK LABWORK LABWORK INTERMEDIATE LAB WORK INTERMEDIATE LAB WORK LABWORK INTERMEDIATE LAB WORK INTERMEDIATE LABWORK LABWORK INTERMEDIATE LAB WORK LABWORK INTERMEDIATE LAB WORK LABWORK LABWORK LABWORK Chief Complaint INTERMEDIATE LAB WOR K LABWORK LABWORK INTERMEDIATE LAB WORK INTERMEDIATE LAB WORK LABWORK INTERMEDIATE LAB WORK INTERMEDIATE LABWORK LABWORK INTERMEDIATE LAB WORK LABWORK INTERMEDIATE LAB WORK LABWORK LABWORK LABWORK LABWORK Chief Complaint INTERMEDIATE LAB WOR K LABWORK LABWORK INTERMEDIATE LAB WORK INTERMEDIATE LAB WORK LABWORK INTERMEDIATE LAB WORK INTERMEDIATE LABWORK LABWORK INTERMEDIATE LAB WORK LABWORK INTERMEDIATE LAB WORK LABWORK LABWORK LABWORK INTERMEDIATE LABWORK LABWORK Chief Complaint LABWORK LABWORK INTERMEDIATE LAB WORK INTERMEDIATE LAB WORK LABWORK INTERMEDIATE LAB WORK INTERMEDIATE LABWORK LABWORK INTERMEDIATE LAB WORK LABWORK INTERMEDIATE LAB WORK LABWORK LABWORK LABWORK INTERMEDIATE LABWORK LABWORK LABWORK Chief Complaint LABWORK INTERMEDIATE LAB WORK INTERMEDIATE LAB WORK LABWORK INTERMEDIATE LAB WORK INTERMEDIATE LABWORK LABWORK INTERMEDIATE LAB WORK LABWORK INTERMEDIATE LAB WORK LABWORK LABWORK LABWORK INTERMEDIATE LABWORK LABWORK LABWORK LABWORK Chief Complaint INTERMEDIATE LAB WOR K INTERMEDIATE LAB WORK LABWORK INTERMEDIATE LAB WORK INTERMEDIATE LABWORK LABWORK INTERMEDIATE LAB WORK LABWORK INTERMEDIATE LAB WORK LABWORK LABWORK LABWORK INTERMEDIATE LABWORK LABWORK LABWORK LABWORK LABWORK Chief Complaint INTERMEDIATE LAB WOR K LABWORK INTERMEDIATE LAB WORK INTERMEDIATE LABWORK LABWORK INTERMEDIATE LAB WORK LABWORK INTERMEDIATE LAB WORK LABWORK LABWORK LABWORK INTERMEDIATE LABWORK LABWORK LABWORK LABWORK LABWORK LABWORK Chief Complaint INTERMEDIATE LAB WOR K LABWORK INTERMEDIATE LAB WORK INTERMEDIATE LABWORK LABWORK INTERMEDIATE LAB WORK LABWORK INTERMEDIATE LAB WORK LABWORK LABWORK LABWORK INTERMEDIATE LABWORK LABWORK LABWORK LABWORK LABWORK LABWORK LABWORK Chief Complaint INTERMEDIATE LAB WOR K LABWORK INTERMEDIATE LAB WORK INTERMEDIATE LABWORK LABWORK INTERMEDIATE LAB WORK LABWORK INTERMEDIATE LAB WORK LABWORK LABWORK LABWORK INTERMEDIATE LABWORK LABWORK LABWORK LABWORK LABWORK LABWORK LABWORK LABWORK Chief Complaint INTERMEDIATE LAB WOR K LABWORK INTERMEDIATE LAB WORK INTERMEDIATE LABWORK LABWORK INTERMEDIATE LAB WORK LABWORK INTERMEDIATE LAB WORK LABWORK LABWORK LABWORK INTERMEDIATE LABWORK LABWORK LABWORK LABWORK LABWORK LABWORK LABWORK INTERMEDIATE LAB WORK LABWORK Chief Complaint INTERMEDIATE LAB WOR K LABWORK INTERMEDIATE LAB WORK INTERMEDIATE LABWORK LABWORK INTERMEDIATE LAB WORK LABWORK INTERMEDIATE LAB WORK LABWORK LABWORK LABWORK INTERMEDIATE LABWORK LABWORK LABWORK LABWORK LABWORK LABWORK LABWORK INTERMEDIATE LAB WORK LABWORK LABWORK 6 M FU Chief Complaint INTERMEDIATE LAB WOR K INTERMEDIATE LABWORK LABWORK INTERMEDIATE LAB WORK LABWORK INTERMEDIATE LAB WORK LABWORK LABWORK LABWORK INTERMEDIATE LABWORK LABWORK LABWORK LABWORK LABWORK LABWORK LABWORK INTERMEDIATE LAB WORK LABWORK LABWORK LABWORK 6 M FU Reason for Visit Atrial fibrillation HLD (hyperlipidemia) Presence of cardiac pacemaker HTN (hypertension) Second degree AV block, Mobitz type II Chief Complaint INTERMEDIATE LABWORK LABWORK INTERMEDIATE LAB WORK LABWORK INTERMEDIATE LAB WORK LABWORK LABWORK LABWORK INTERMEDIATE LABWORK LABWORK LABWORK LABWORK LABWORK LABWORK LABWORK INTERMEDIATE LAB WORK LABWORK LABWORK LABWORK 6 M FU INTERMEDIATE LAB WORK Reason for Visit Atrial fibrillation HLD (hyperlipidemia) Presence of cardiac pacemaker HTN (hypertension) Second degree AV block, Mobitz type II Chief Complaint INTERMEDIATE LAB WOR K LABWORK INTERMEDIATE LAB WORK LABWORK LABWORK LABWORK INTERMEDIATE LABWORK LABWORK LABWORK LABWORK LABWORK LABWORK LABWORK INTERMEDIATE LAB WORK LABWORK LABWORK LABWORK 6 M FU LABWORK INTERMEDIATE LAB WORK Reason for Visit Atrial fibrillation HLD (hyperlipidemia) Presence of cardiac pacemaker HTN (hypertension) Second degree AV block, Mobitz type II Chief Complaint LABWORK LABWORK INTERMEDIATE LABWORK LABWORK 6 wk post PPM implant f/u / KR @ 2p S/P PACER IMPLANT 6 wk fu / NAA @ 1:30 LABWORK INTERMEDIATE LAB WORK INTERMEDIATE LABWORK INTERMEDIATE LAB WORK INTERMEDIATE LAB WORK LABWORK LABWORK INTERMEDIATE LAB WORK INTERMEDIATE LAB WORK LABWORK Reason for Visit Presence of cardiac pacemaker Syncope Second degree AV block, Mobitz type II Sick sinus syndrome Atrial fibrillation HLD (hyperlipidemia) Presence of cardiac pacemaker HTN (hypertension) Second degree AV block, Mobitz type II Chief Complaint Admit Date INTERMEDIATE LAB WORK July 01 4:00am INTERMEDIATE LAB WORK July 07 5:00am LABWORK July 27, 2024 5 :00am INTERMEDIATE LAB WORK August 04, 2024 5:00am INTERMEDIATE LAB WORK September 29, 2024 4 :00am 6 M FU October 12, 2024 1:0 9pm Reason for Visit Admit Date Presence of cardiac pacemaker September 1:09pm Atrial fibrillation October 12, 2024 1:0 9pm Diabetes October 12, 2024 1:0 9pm HLD (hyperlipidemia) October 12, 2024 1: 09pm HTN (hypertension) October 12, 2024 1:0 9pm Sick sinus syndrome October 12, 2024 1:0 9pm Chief Complaint Admit Date INTERMEDIATE LAB WORK July 01 4:00am INTERMEDIATE LAB WORK July 07 5:00am LABWORK July 27, 2024 5 :00am INTERMEDIATE LAB WORK August 04, 2024 5:00am INTERMEDIATE LAB WORK September 29, 2024 4 :00am INTERMEDIATE LAB WORK October 05, 2024 5 :00am 6 M FU October 12, 2024 1:0 9pm Family History No Family History Records Found Relationship Condition Age at Onset Recorded Date/T shyann Unknown Family History?Heart Disease Unknown May 22, 2018 7:22pm Family History?Heart Disease Unknown May 22, 2018 7:22pm Relationship Condition Age at Onset Recorded Date/T shyann Not Specified Diabetes mellitus Unknown Hypertension Unknown Relationship Condition Age at Onset Recorded Date/T shyann mother Cardiac disease Unknown Diabetes mellitus Unknown Hypertension Unknown father Cardiac disease Unknown Reason for Referral Specialty Diagnoses / Procedures Referred By Linn carrillo Referred To Contact [facility] Diagnoses Driving safety issue Procedures CONSULT TO TECHNICAL EDITOR OCCUPATIONAL THERAPY EVAL HIGH COMPLEX 60 MINS Jojo Kaur MD [address] [place] [address] [facility] [place] [address] Referral ID Status Reason Start Date Expiration Date Visits Requested Visits Authorized [id number] Authorized PCP Requested Referral Auto-Generate d Referral 09/07/2022 09/07/2023 99 99 Specialty Diagnoses / Procedures Referred By Linn carrillo Referred To Contact [facility] Diagnoses Polyneuropathy Procedures CONSULT TO PHYSICAL THERAPY PHYSICAL THERAPY EVALUATION HIGH COMPLEX 45 MINS Jojo Kaur MD [address] [place] [address] [facility] [address] [address] Referral ID Status Reason Start Date Expiration Date Visits Requested Visits Authorized [id number] Authorized PCP Requested Referral Auto-Generate d Referral 04/17/2022 04/17/2023 99 99 Specialty Diagnoses / Procedures Referred By Contac t Referred To Contact Psychology Diagnoses Generalized anxiety disorder Procedures CONSULT TO PSYCHOLOGY OFFICE/OUTPATIENT [facility] 60-74 MINUTES Jojo Kaur MD [address] [place] [address] Referral ID Status Reason Start Date Expiration Date Visits Requested Visits Authorized [id number] Pending Review PCP Requested Referral 04/17/2022 04/17/2023 1 1 Specialty Diagnoses / Procedures Referred By Contac t Referred To Contact Podiatry Diagnoses Type 2 diabetes mellitus with diabetic neuropathy, with long-term current use of insulin ([facility]) Procedures CONSULT TO PODIATRY OFFICE/OUTPATIENT [facility] 60-74 MINUTES PodlogRoselia hernandez APRN.BARGAIN TABLE CLERK [address] [place] [address] Referral ID Status Reason Start Date Expiration Date Visits Requested Visits Authorized [id number] Authorized PCP Requested Referral 01/12/2022 01/11/2023 1 1 Specialty Diagnoses / Procedures Referred By Contac t Referred To Contact [facility] Diagnoses Altered mental status, unspecified altered mental status type Procedures CONSULT TO SPEECH THERAPY OFFICE/OUTPATIENT [facility] 60-74 MINUTES Jojo Kaur MD [address] [place] [id number] [facility] [place] [address] [place] [id number] Referral ID Status Reason Start Date Expiration Date Visits Requested Visits Authorized [id number] Authorized Auto-Generat ed Referral 01/05/2022 01/05/2023 99 99 Specialty Diagnoses / Procedures Referred By Contac t Referred To Contact [facility] Diagnoses Abnormality of gait due to impairment of balance Procedures CONSULT TO PHYSICAL THERAPY PHYSICAL THERAPY EVALUATION HIGH COMPLEX 45 MINS Jojo Kaur MD [address] [place] [address] [facility] [place] [address] [place] [id number] Referral ID Status Reason Start Date Expiration Date Visits Requested Visits Authorized [id number] Authorized PCP Requested Referral Auto-Generate d Referral 01/05/2022 01/05/2023 99 99 Specialty Diagnoses / Procedures Referred By Contac t Referred To Contact NEUROLOGICAL [facility] Diagn[facility] Altered mental status, unspecified altered mental status type Procedures EPIL EEG ROUTINE ELECTROENCEPHALOGRAM REC COMA/SLEEP ONLY Jojo Kaur MD [address] [place] [address] [facility] [place] [address] [place], [place] [id number] Referral ID Status Reason Start Date Expiration Date Visits Requested Visits Authorized [id number] Authorized Auto-Generat ed Referral 01/05/2022 01/05/2023 1 1 Specialty Diagnoses / Procedures Referred By Contac t Referred To Contact Neurology Diagnoses Altered mental status, unspecified altered mental status type Procedures CONSULT TO NEUROLOGY OFFICE/OUTPATIENT [facility] 60-74 MINUTES Abdulaziz Caldera MD [address] [place] [address] Referral ID Status Reason Start Date Expiration Date Visits Requested Visits Authorized [id number] Authorized PCP Requested Referral 01/01/2022 01/01/2023 1 1 Summary Purpose Additional Source Comments Source Comments (unrecognize d section and content) In the event this informatio n is protected by the Federal Confidentiality of Alcohol and Drug Abuse Patient Records regulations: The Federal rules restrict any use of the information to criminally investigate or prosecute any alcohol or drug abuse patient.[facility] the event this information is protected by the Federal Confidentiality of Alcohol and Drug Abuse Patient Records regulations: The Federal rules restrict any use of the information to criminally investigate or prosecute any alcohol or drug abuse patient.[facility] HospitalIn the event this information is protected by the Federal Confidentiality of Alcohol and Drug Abuse Patient Records regulations: The Federal rules restrict any use of the information to criminally investigate or prosecute any alcohol or drug abuse patient.[facility] HospitalIn the event this information is protected by the Federal Confidentiality of Alcohol and Drug Abuse Patient Records regulations: The Federal rules restrict any use of the information to criminally investigate or prosecute any alcohol or drug abuse patient.[facility] HospitalIn the event this information is protected by the Federal Confidentiality of Alcohol and Drug Abuse Patient Records regulations: The Federal rules restrict any use of the information to criminally investigate or prosecute any alcohol or drug abuse patient.[facility] HospitalIn the event this information is protected by the Federal Confidentiality of Alcohol and Drug Abuse Patient Records regulations: The Federal rules restrict any use of the information to criminally investigate or prosecute any alcohol or drug abuse patient.[facility] HospitalIn the event this information is protected by the Federal Confidentiality of Alcohol and Drug Abuse Patient Records regulations: The Federal rules restrict any use of the information to criminally investigate or prosecute any alcohol or drug abuse patient.[facility] HospitalIn the event this information is protected by the Federal Confidentiality of Alcohol and Drug Abuse Patient Records regulations: The Federal rules restrict any use of the information to criminally investigate or prosecute any alcohol or drug abuse patient.[facility] HospitalIn the event this information is protected by the Federal Confidentiality of Alcohol and Drug Abuse Patient Records regulations: The Federal rules restrict any use of the information to criminally investigate or prosecute any alcohol or drug abuse patient.[facility] HospitalIn the event this information is protected by the Federal Confidentiality of Alcohol and Drug Abuse Patient Records regulations: The Federal rules restrict any use of the information to criminally investigate or prosecute any alcohol or drug abuse patient.[facility] HospitalIn the event this information is protected by the Federal Confidentiality of Alcohol and Drug Abuse Patient Records regulations: The Federal rules restrict any use of the information to criminally investigate or prosecute any alcohol or drug abuse patient.[facility] HospitalIn the event this information is protected by the Federal Confidentiality of Alcohol and Drug Abuse Patient Records regulations: The Federal rules restrict any use of the information to criminally investigate or prosecute any alcohol or drug abuse patient.[facility] HospitalIn the event this information is protected by the Federal Confidentiality of Alcohol and Drug Abuse Patient Records regulations: The Federal rules restrict any use of the information to criminally investigate or prosecute any alcohol or drug abuse patient.[facility] HospitalIn the event this information is protected by the Federal Confidentiality of Alcohol and Drug Abuse Patient Records regulations: The Federal rules restrict any use of the information to criminally investigate or prosecute any alcohol or drug abuse patient.[facility] HospitalIn the event this information is protected by the Federal Confidentiality of Alcohol and Drug Abuse Patient Records regulations: The Federal rules restrict any use of the information to criminally investigate or prosecute any alcohol or drug abuse patient.[facility] HospitalIn the event this information is protected by the Federal Confidentiality of Alcohol and Drug Abuse Patient Records regulations: The Federal rules restrict any use of the information to criminally investigate or prosecute any alcohol or drug abuse patient.[facility] HospitalIn the event this information is protected by the Federal Confidentiality of Alcohol and Drug Abuse Patient Records regulations: The Federal rules restrict any use of the information to criminally investigate or prosecute any alcohol or drug abuse patient.[facility] HospitalIn the event this information is protected by the Federal Confidentiality of Alcohol and Drug Abuse Patient Records regulations: The Federal rules restrict any use of the information to criminally investigate or prosecute any alcohol or drug abuse patient.[facility] HospitalIn the event this information is protected by the Federal Confidentiality of Alcohol and Drug Abuse Patient Records regulations: The Federal rules restrict any use of the information to criminally investigate or prosecute any alcohol or drug abuse patient.[facility] HospitalIn the event this information is protected by the Federal Confidentiality of Alcohol and Drug Abuse Patient Records regulations: The Federal rules restrict any use of the information to criminally investigate or prosecute any alcohol or drug abuse patient.[facility] HospitalIn the event this information is protected by the Federal Confidentiality of Alcohol and Drug Abuse Patient Records regulations: The Federal rules restrict any use of the information to criminally investigate or prosecute any alcohol or drug abuse patient.[facility] HospitalIn the event this information is protected by the Federal Confidentiality of Alcohol and Drug Abuse Patient Records regulations: The Federal rules restrict any use of the information to criminally investigate or prosecute any alcohol or drug abuse patient.[facility] HospitalIn the event this information is protected by the Federal Confidentiality of Alcohol and Drug Abuse Patient Records regulations: The Federal rules restrict any use of the information to criminally investigate or prosecute any alcohol or drug abuse patient.[facility] HospitalIn the event this information is protected by the Federal Confidentiality of Alcohol and Drug Abuse Patient Records regulations: The Federal rules restrict any use of the information to criminally investigate or prosecute any alcohol or drug abuse patient.[facility] HospitalIn the event this information is protected by the Federal Confidentiality of Alcohol and Drug Abuse Patient Records regulations: The Federal rules restrict any use of the information to criminally investigate or prosecute any alcohol or drug abuse patient.[facility] HospitalIn the event this information is protected by the Federal Confidentiality of Alcohol and Drug Abuse Patient Records regulations: The Federal rules restrict any use of the information to criminally investigate or prosecute any alcohol or drug abuse patient.[facility] HospitalIn the event this information is protected by the Federal Confidentiality of Alcohol and Drug Abuse Patient Records regulations: The Federal rules restrict any use of the information to criminally investigate or prosecute any alcohol or drug abuse patient.[facility] HospitalIn the event this information is protected by the Federal Confidentiality of Alcohol and Drug Abuse Patient Records regulations: The Federal rules restrict any use of the information to criminally investigate or prosecute any alcohol or drug abuse patient.[facility] HospitalIn the event this information is protected by the Federal Confidentiality of Alcohol and Drug Abuse Patient Records regulations: The Federal rules restrict any use of the information to criminally investigate or prosecute any alcohol or drug abuse patient.[facility] HospitalIn the event this information is protected by the Federal Confidentiality of Alcohol and Drug Abuse Patient Records regulations: The Federal rules restrict any use of the information to criminally investigate or prosecute any alcohol or drug abuse patient.[facility] HospitalIn the event this information is protected by the Federal Confidentiality of Alcohol and Drug Abuse Patient Records regulations: The Federal rules restrict any use of the information to criminally investigate or prosecute any alcohol or drug abuse patient.[facility] HospitalIn the event this information is protected by the Federal Confidentiality of Alcohol and Drug Abuse Patient Records regulations: The Federal rules restrict any use of the information to criminally investigate or prosecute any alcohol or drug abuse patient.[facility] HospitalIn the event this information is protected by the Federal Confidentiality of Alcohol and Drug Abuse Patient Records regulations: The Federal rules restrict any use of the information to criminally investigate or prosecute any alcohol or drug abuse patient.[facility] HospitalIn the event this information is protected by the Federal Confidentiality of Alcohol and Drug Abuse Patient Records regulations: The Federal rules restrict any use of the information to criminally investigate or prosecute any alcohol or drug abuse patient.[facility] HospitalIn the event this information is protected by the Federal Confidentiality of Alcohol and Drug Abuse Patient Records regulations: The Federal rules restrict any use of the information to criminally investigate or prosecute any alcohol or drug abuse patient.[facility] HospitalIn the event this information is protected by the Federal Confidentiality of Alcohol and Drug Abuse Patient Records regulations: The Federal rules restrict any use of the information to criminally investigate or prosecute any alcohol or drug abuse patient.[facility] HospitalIn the event this information is protected by the Federal Confidentiality of Alcohol and Drug Abuse Patient Records regulations: The Federal rules restrict any use of the information to criminally investigate or prosecute any alcohol or drug abuse patient.[facility] HospitalIn the event this information is protected by the Federal Confidentiality of Alcohol and Drug Abuse Patient Records regulations: The Federal rules restrict any use of the information to criminally investigate or prosecute any alcohol or drug abuse patient.[facility] HospitalIn the event this information is protected by the Federal Confidentiality of Alcohol and Drug Abuse Patient Records regulations: The Federal rules restrict any use of the information to criminally investigate or prosecute any alcohol or drug abuse patient.[facility] HospitalIn the event this information is protected by the Federal Confidentiality of Alcohol and Drug Abuse Patient Records regulations: The Federal rules restrict any use of the information to criminally investigate or prosecute any alcohol or drug abuse patient.[facility] HospitalIn the event this information is protected by the Federal Confidentiality of Alcohol and Drug Abuse Patient Records regulations: The Federal rules restrict any use of the information to criminally investigate or prosecute any alcohol or drug abuse patient.[facility] HospitalIn the event this information is protected by the Federal Confidentiality of Alcohol and Drug Abuse Patient Records regulations: The Federal rules restrict any use of the information to criminally investigate or prosecute any alcohol or drug abuse patient.[facility] HospitalIn the event this information is protected by the Federal Confidentiality of Alcohol and Drug Abuse Patient Records regulations: The Federal rules restrict any use of the information to criminally investigate or prosecute any alcohol or drug abuse patient.[facility] HospitalIn the event this information is protected by the Federal Confidentiality of Alcohol and Drug Abuse Patient Records regulations: The Federal rules restrict any use of the information to criminally investigate or prosecute any alcohol or drug abuse patient.[facility] HospitalIn the event this information is protected by the Federal Confidentiality of Alcohol and Drug Abuse Patient Records regulations: The Federal rules restrict any use of the information to criminally investigate or prosecute any alcohol or drug abuse patient.[facility] HospitalIn the event this information is protected by the Federal Confidentiality of Alcohol and Drug Abuse Patient Records regulations: The Federal rules restrict any use of the information to criminally investigate or prosecute any alcohol or drug abuse patient.[facility] HospitalIn the event this information is protected by the Federal Confidentiality of Alcohol and Drug Abuse Patient Records regulations: The Federal rules restrict any use of the information to criminally investigate or prosecute any alcohol or drug abuse patient.[facility] HospitalIn the event this information is protected by the Federal Confidentiality of Alcohol and Drug Abuse Patient Records regulations: The Federal rules restrict any use of the information to criminally investigate or prosecute any alcohol or drug abuse patient.[facility] HospitalIn the event this information is protected by the Federal Confidentiality of Alcohol and Drug Abuse Patient Records regulations: The Federal rules restrict any use of the information to criminally investigate or prosecute any alcohol or drug abuse patient.[facility] HospitalIn the event this information is protected by the Federal Confidentiality of Alcohol and Drug Abuse Patient Records regulations: The Federal rules restrict any use of the information to criminally investigate or prosecute any alcohol or drug abuse patient.[facility] HospitalIn the event this information is protected by the Federal Confidentiality of Alcohol and Drug Abuse Patient Records regulations: The Federal rules restrict any use of the information to criminally investigate or prosecute any alcohol or drug abuse patient.[facility] HospitalIn the event this information is protected by the Federal Confidentiality of Alcohol and Drug Abuse Patient Records regulations: The Federal rules restrict any use of the information to criminally investigate or prosecute any alcohol or drug abuse patient.[facility] HospitalIn the event this information is protected by the Federal Confidentiality of Alcohol and Drug Abuse Patient Records regulations: The Federal rules restrict any use of the information to criminally investigate or prosecute any alcohol or drug abuse patient.[facility] HospitalIn the event this information is protected by the Federal Confidentiality of Alcohol and Drug Abuse Patient Records regulations: The Federal rules restrict any use of the information to criminally investigate or prosecute any alcohol or drug abuse patient.[facility] HospitalIn the event this information is protected by the Federal Confidentiality of Alcohol and Drug Abuse Patient Records regulations: The Federal rules restrict any use of the information to criminally investigate or prosecute any alcohol or drug abuse patient.[facility] HospitalIn the event this information is protected by the Federal Confidentiality of Alcohol and Drug Abuse Patient Records regulations: The Federal rules restrict any use of the information to criminally investigate or prosecute any alcohol or drug abuse patient.[facility] HospitalIn the event this information is protected by the Federal Confidentiality of Alcohol and Drug Abuse Patient Records regulations: The Federal rules restrict any use of the information to criminally investigate or prosecute any alcohol or drug abuse patient.[facility] HospitalIn the event this information is protected by the Federal Confidentiality of Alcohol and Drug Abuse Patient Records regulations: The Federal rules restrict any use of the information to criminally investigate or prosecute any alcohol or drug abuse patient.[facility] HospitalIn the event this information is protected by the Federal Confidentiality of Alcohol and Drug Abuse Patient Records regulations: The Federal rules restrict any use of the information to criminally investigate or prosecute any alcohol or drug abuse patient.[facility] HospitalIn the event this information is protected by the Federal Confidentiality of Alcohol and Drug Abuse Patient Records regulations: The Federal rules restrict any use of the information to criminally investigate or prosecute any alcohol or drug abuse patient.[facility] HospitalIn the event this information is protected by the Federal Confidentiality of Alcohol and Drug Abuse Patient Records regulations: The Federal rules restrict any use of the information to criminally investigate or prosecute any alcohol or drug abuse patient.[facility] HospitalIn the event this information is protected by the Federal Confidentiality of Alcohol and Drug Abuse Patient Records regulations: The Federal rules restrict any use of the information to criminally investigate or prosecute any alcohol or drug abuse patient.[facility] HospitalIn the event this information is protected by the Federal Confidentiality of Alcohol and Drug Abuse Patient Records regulations: The Federal rules restrict any use of the information to criminally investigate or prosecute any alcohol or drug abuse patient.[facility] HospitalIn the event this information is protected by the Federal Confidentiality of Alcohol and Drug Abuse Patient Records regulations: The Federal rules restrict any use of the information to criminally investigate or prosecute any alcohol or drug abuse patient.[facility] HospitalIn the event this information is protected by the Federal Confidentiality of Alcohol and Drug Abuse Patient Records regulations: The Federal rules restrict any use of the information to criminally investigate or prosecute any alcohol or drug abuse patient.[facility] HospitalIn the event this information is protected by the Federal Confidentiality of Alcohol and Drug Abuse Patient Records regulations: The Federal rules restrict any use of the information to criminally investigate or prosecute any alcohol or drug abuse patient.[facility] HospitalIn the event this information is protected by the Federal Confidentiality of Alcohol and Drug Abuse Patient Records regulations: The Federal rules restrict any use of the information to criminally investigate or prosecute any alcohol or drug abuse patient.[facility] HospitalIn the event this information is protected by the Federal Confidentiality of Alcohol and Drug Abuse Patient Records regulations: The Federal rules restrict any use of the information to criminally investigate or prosecute any alcohol or drug abuse patient.[facility] HospitalIn the event this information is protected by the Federal Confidentiality of Alcohol and Drug Abuse Patient Records regulations: The Federal rules restrict any use of the information to criminally investigate or prosecute any alcohol or drug abuse patient.[facility] HospitalIn the event this information is protected by the Federal Confidentiality of Alcohol and Drug Abuse Patient Records regulations: The Federal rules restrict any use of the information to criminally investigate or prosecute any alcohol or drug abuse patient.[facility] HospitalIn the event this information is protected by the Federal Confidentiality of Alcohol and Drug Abuse Patient Records regulations: The Federal rules restrict any use of the information to criminally investigate or prosecute any alcohol or drug abuse patient.[facility] HospitalIn the event this information is protected by the Federal Confidentiality of Alcohol and Drug Abuse Patient Records regulations: The Federal rules restrict any use of the information to criminally investigate or prosecute any alcohol or drug abuse patient.[facility] HospitalIn the event this information is protected by the Federal Confidentiality of Alcohol and Drug Abuse Patient Records regulations: The Federal rules restrict any use of the information to criminally investigate or prosecute any alcohol or drug abuse patient.[facility] HospitalIn the event this information is protected by the Federal Confidentiality of Alcohol and Drug Abuse Patient Records regulations: The Federal rules restrict any use of the information to criminally investigate or prosecute any alcohol or drug abuse patient.[facility] HospitalIn the event this information is protected by the Federal Confidentiality of Alcohol and Drug Abuse Patient Records regulations: The Federal rules restrict any use of the information to criminally investigate or prosecute any alcohol or drug abuse patient.[facility] HospitalIn the event this information is protected by the Federal Confidentiality of Alcohol and Drug Abuse Patient Records regulations: The Federal rules restrict any use of the information to criminally investigate or prosecute any alcohol or drug abuse patient.[facility] HospitalIn the event this information is protected by the Federal Confidentiality of Alcohol and Drug Abuse Patient Records regulations: The Federal rules restrict any use of the information to criminally investigate or prosecute any alcohol or drug abuse patient.[facility] HospitalIn the event this information is protected by the Federal Confidentiality of Alcohol and Drug Abuse Patient Records regulations: The Federal rules restrict any use of the information to criminally investigate or prosecute any alcohol or drug abuse patient.[facility] HospitalIn the event this information is protected by the Federal Confidentiality of Alcohol and Drug Abuse Patient Records regulations: The Federal rules restrict any use of the information to criminally investigate or prosecute any alcohol or drug abuse patient.[facility] Reason for Visit (unrecogniz ed section and content) Reason Comments PT Discharge Specialty Diagnoses / Procedures Referred By Contac t Referred To Contact [facility] Diagnoses Abnormality of gait due to impairment of balance Procedures CONSULT TO PHYSICAL THERAPY PHYSICAL THERAPY EVALUATION HIGH COMPLEX 45 MINS Jojo Kaur MD [address] [place] [address] [facility] [address] [place] [address] Referral ID Status Reason Start Date Expiration Date Visits Requested Visits Authorized [id number] Authorized PCP Requested Referral Auto-Generate d Referral [...] 6 mo Reason Comments Hospital Follow Up [facility] discharged Reason Comments Results Reason Comments Consult altered mental statu s Specialty Diagnoses / Procedures Referred By Contac t Referred To Contact Neurology Diagnoses Altered mental status, unspecified altered mental status type Procedures CONSULT TO NEUROLOGY OFFICE/OUTPATIENT NEW HIGH MDM 60-74 MINUTES Abdulaziz Caldera MD [address] [place] [address] Referral ID Status Reason Start Date Expiration Date V isits Requested Visits Authorized [id number] Closed PCP Requested Referral 01/01/2022 01/01/2023 1 [...] Nursing Plan of Care Update Reason Comments [facility] HH PT POC Reason Comments OT plan of care Reason Onset Date Comments Refill Request 07/25/2022 Reason Comments Home Health-Nursing Update Reason Onset Date Comments Anticoagulation 07/31/2022 Specialty Diagnoses / Procedures Referred By Linn carrillo Referred To Contact Ent - Otolaryngology Diagnoses Chronic frontal sinusitis Procedures CONSULT TO ENT OFFICE/OUTPATIENT NEW HIGH MDM 60-74 MINUTES Abdulaziz Caldera MD [address] [place] [address] Referral ID Status Reason Start Date Expiration Date V isits Requested Visits Authorized [id number] Closed PCP Requested Referral 07/12/2022 07/12/2023 1 [...] Care Teams (unrecognized sec tion and content) Admin Assistant Relationship Specialty Start Date End Date Abdulaziz Caldera MD [address] [place] [address] PCP - General Family Practice 11/23/20 Admin Assistant Relationship Specialty Start Date End Date Abdulaziz Caldera MD [address] [place] [address] PCP - General Family Practice 11/23/20 Admin Assistant Relationship Specialty Start Date End Date Abdulaziz Caldera MD [address] [facility] [place] [address] PCP - General Family Practice 11/23/20 Admin Assistant Relationship Specialty Start Date End Date Abdulaziz Caldera MD [address] [facility] [place] [address] PCP - General Family Practice 11/23/20 Admin Assistant Relationship Specialty Start Date End Date Abdulaziz Caldera MD [address] [facility] [place] [address] PCP - General Family Practice 11/23/20 Admin Assistant Relationship Specialty Start Date End Date Abdulaziz Caldera MD [address] [facility] [place] [address] PCP - General Family Practice 11/23/20 Admin Assistant Relationship Specialty Start Date End Date Abdulaziz Caldera MD [address] [facility] [place] [address] PCP - General Family Practice 11/23/20 Admin Assistant Relationship Specialty Start Date End Date Abdulaziz Caldera MD [address] [facility] [place] [address] PCP - General Family Practice 11/23/20 Admin Assistant Relationship Specialty Start Date End Date Abdulaziz Caldera MD [address] [facility] [place] [address] PCP - General Family Practice 11/23/20 Admin Assistant Relationship Specialty Start Date End Date Abdulaziz Caldera MD [address] [facility] [place] [address] PCP - General Family Practice 11/23/20 Admin Assistant Relationship Specialty Start Date End Date Abdulaziz Caldera MD [address] [facility] [place] [address] PCP - General Family Practice 11/23/20 Admin Assistant Relationship Specialty Start Date End Date Abdulaziz Caldera MD [address] [facility] [place] [address] PCP - General Family Practice 11/23/20 Admin Assistant Relationship Specialty Start Date End Date Abdulaziz Caldera MD [address] [facility] [place] [address] PCP - General Family Practice 11/23/20 Admin Assistant Relationship Specialty Start Date End Date Abdulaziz Caldera MD [facility] [place] [address] PCP - General Family Practice 11/23/20 Admin Assistant Relationship Specialty Start Date End Date Abdulaziz Caldera MD [facility] [place] [address] PCP - General Family Practice 11/23/20 Admin Assistant Relationship Specialty Start Date End Date Abdulaziz Caldera MD [address] [facility] [place] [address] PCP - General Family Practice 11/23/20 Admin Assistant Relationship Specialty Start Date End Date Abdulaziz Caldera MD [address] [facility] [place] [address] PCP - General Family Practice 11/23/20 Admin Assistant Relationship Specialty Start Date End Date Abdulaziz Caldera MD [address] [facility] [place] [address] PCP - General Family Practice 11/23/20 Admin Assistant Relationship Specialty Start Date End Date Abdulaziz Caldera MD [address] [facility] [place] [address] PCP - General Family Practice 11/23/20 Admin Assistant Relationship Specialty Start Date End Date Abdulaziz Caldera MD [address] [facility] [place] [address] PCP - General Family Practice 11/23/20 Admin Assistant Relationship Specialty Start Date End Date Abdulaziz Caldera MD [address] [facility] [place] [address] PCP - General Family Practice 11/23/20 Admin Assistant Relationship Specialty Start Date End Date Abdulaziz Caldera MD [address] [facility] [place] [address] PCP - General Family Practice 11/23/20 Admin Assistant Relationship Specialty Start Date End Date Abdulaziz Caldera MD [facility] [place] [address] PCP - General Family Medicine 11/23/20 Admin Assistant Relationship Specialty Start Date End Date Abdulaziz Caldera MD [facility] [place] [address] PCP - General Family Medicine 11/23/20 Admin Assistant Relationship Specialty Start Date End Date Abdulaziz Caldera MD [address] [facility] [place] [address] PCP - General Family Medicine 11/23/20 Admin Assistant Relationship Specialty Start Date End Date Abdulaziz Caldera MD [facility] [place] [address] PCP - General Family Medicine 11/23/20 Admin Assistant Relationship Specialty Start Date End Date Abdulaziz Caldera MD [facility] [place] [address] PCP - General Family Medicine 11/23/20 Admin Assistant Relationship Specialty Start Date End Date Abdulaziz Caldera MD [facility] [place] [address] PCP - General Family Medicine 11/23/20 Admin Assistant Relationship Specialty Start Date End Date Abdulaziz Caldera MD [address] [facility] [place] [address] PCP - General Family Medicine 11/23/20 Admin Assistant Relationship Specialty Start Date End Date Abdulaziz Caldera MD [address] [facility] [place] [address] PCP - General Family Medicine 11/23/20 Admin Assistant Relationship Specialty Start Date End Date Abdulaziz Caldera MD [address] [facility] [place] [address] PCP - General Family Medicine 11/23/20 Admin Assistant Relationship Specialty Start Date End Date Abdulaziz Caldera MD [address] [facility] [place] [address] PCP - General Family Medicine 11/23/20 Admin Assistant Relationship Specialty Start Date End Date Abdulaziz Caldera MD [address] [facility] [place] [address] PCP - General Family Medicine 11/23/20 Admin Assistant Relationship Specialty Start Date End Date Abdulaziz Caldera MD [address] [facility] [place] [address] PCP - General Family Medicine 11/23/20 Admin Assistant Relationship Specialty Start Date End Date Abdulaziz Caldera MD [address] [facility] [place] [address] PCP - General Family Medicine 11/23/20 Admin Assistant Relationship Specialty Start Date End Date Abdulaziz Caldera MD [address] [facility] [place] [address] PCP - General Family Medicine 11/23/20 Admin Assistant Relationship Specialty Start Date End Date Abdulaziz Caldera MD [address] [facility] [place] [address] PCP - General Family Medicine 11/23/20 Admin Assistant Relationship Specialty Start Date End Date Abdulaziz Caldera MD [address] [facility] [place] [address] PCP - General Family Medicine 11/23/20 Admin Assistant Relationship Specialty Start Date End Date Abdulaziz Caldera MD [address] [facility] [place] [address] PCP - General Family Medicine 11/23/20 Admin Assistant Relationship Specialty Start Date End Date Abdulaziz Caldera MD [address] [facility] [place] [address] PCP - General Family Medicine 11/23/20 Admin Assistant Relationship Specialty Start Date End Date Abdulaziz Caldera MD [address] [place] [address] PCP - General Family Medicine 11/23/20 Team Status: Active Member Role Status Dates Dr. Chidi Christian III, MD Family Provider Active Dr. Luis Caldera MD Primary Care Provider Acti ve Team Status: Active Member Role Status Dates Dr. Maggy Roberts MD Emergency Provider Active Dr. Luis Caldera MD Primary Care Provider Acti ve Dr. Karen Aly MD Admit Provider, Attending Prov ider Active Team Status: Active Member Role Status Dates Dr. Maggy Roberts MD Emergency Provider Active Dr. Luis Caldera MD Primary Care Provider Acti ve Dr. Karen Aly MD Admit Provider, Attending Provider, Other Provider Active Team Status: Active Member Role Status Dates Dr. Maggy Roberts MD Emergency Provider Active Dr. Luis Caldera MD Primary Care Provider Acti ve Dr. Karen Aly MD Admit Provider, Other Provider Active Dr. Gabriel Giraldo DO Attending Provider, Other Pro vider Active Team Status: Inactive Member Role Status Dates Dr. Maggy Roberts MD Emergency Provider Active Dr. Luis Caldera MD Primary Care Provider Acti ve Dr. Karen Aly MD Admit Provider, Other Provider Active Dr. Gabriel Giraldo DO Attending Provider Active Team Status: Active Member Role Status Dates Dr. Luis Caldera MD Primary Care Provider Acti ve Dr. Dandy Sauer MD Emergency Provider Active Dr. Ryan Tinoco MD Admit Provider, Attending Provi skip Active Admin Assistant Relationship Specialty Start Date End Date Abdulaziz Caldera MD [address] [place] [address] PCP - General Family Medicine 11/23/20 Team Status: Active Member Role Status Dates Dr. Luis Cladera MD Primary Care Provider Acti ve Dr. Dandy Sauer MD Emergency Provider Active Dr. Ryan Tinoco MD Admit Provider, A ttending Provider, Other Provider Active Team Status: Active Member Role Status Dates Dr. Luis Caldera MD Primary Care Provider Acti ve Dr. Dandy Sauer MD Emergency Provider Active Dr. Ryan Tinoco MD Admit Provider, Other Provider Active Dr. Liu Hackett DO Attending Provider Active Team Status: Active Member Role Status Dates Dr. Luis Caldera MD Primary Care Provider Acti ve Dr. Dandy Sauer MD Emergency Provider Active Dr. Ryan Tinoco MD Admit Provider, A ttending Provider, Other Provider Active Dr. Lizzeth Riggs MD Other Provider Active Team Status: Active Member Role Status Dates Dr. Luis Caldera MD Primary Care Provider Acti ve Dr. Dandy Sauer MD Emergency Provider Active Dr. Ryan Tinoco MD Admit Provider, Other Provider Active Dr. Lizzeth Riggs MD Other Provider Active Rebecca Leon PA, PA Attending Provider Active Team Status: Active Member Role Status Dates Dr. Luis Caldera MD Primary Care Provider Acti ve Dr. Lizzeth Riggs MD Attending Provider Active Team Status: Active Member Role Status Dates Dr. Luis Caldera MD Primary Care Provider Acti ve Dr. Liu Hackett DO Attending Provider Active Team Status: Active Member Role Status Dates Dr. Luis Caldera MD Primary Care Provider Acti ve Dr. Dandy Sauer MD Emergency Provider Active Dr. Ryan Tinoco MD Admit Provider, Other Provider Active Dr. Lizzeth Riggs MD Other Provider Active Dr. Liu Hackett , DO Attending Provider Active Team Status: Inactive Member Role Status Dates Dr. Luis Caldera MD Primary Care Provider Acti ve Dr. Dandy Sauer MD Emergency Provider Active Dr. Ryan Tinoco MD Admit Provider, Attending Provi skip Active Dr. Lizzeth Riggs MD Other Provider Active Team Status: Active Member Role Status Dates Dr. Luis Caldera MD Primary Care Provider Acti ve Dr. Syed Allen DO Emergency Provider Active Dr. Karen Aly MD Admit Provider, Attending Prov ider Active Admin Assistant Relationship Specialty Start Date End Date Abdulaziz Caldera MD [address] [place] [address] PCP - General Family Medicine 11/23/20 Team Status: Active Member Role Status Dates Dr. Luis Caldera MD Primary Care Provider Acti ve Dr. Syed Allen DO Emergency Provider Active Dr. Karen Aly MD Admit Provider, Other Provider Active Dr. Yisel Rendon MD Attending Provider, Other Provid er Active Team Status: Active Member Role Status Dates Dr. Luis Caldera MD Primary Care Provider Acti ve Dr. Syed Allen DO Emergency Provider Active Dr. Karen Aly MD Admit Provider, Other Provider Active Dr. Yisel Rendon MD Other Provider Active Dr. Liu Hackett , DO Attending Provider Active Team Status: Active Member Role Status Dates Dr. Luis Caldera MD Primary Care Provider Acti ve Dr. Syed Allen DO Emergency Provider Active Dr. Karen Aly MD Admit Provider, Other Provider Active Dr. Yisel Rendon MD Other Provider Active Dr. Olga Lidia Rasheed MD Attending Provider, Other Provid er Active Team Status: Active Member Role Status Dates Dr. Luis Caldera MD Primary Care Provider Acti ve Dr. Syed Allen DO Emergency Provider Active Dr. Karen Aly MD Admit Provider, Other Provider Active Dr. Yisel Rendon MD Attending Provider, Other Provid er Active Dr. Olga Lidia Rasheed MD Other Provider Active Team Status: Active Member Role Status Dates Dr. Luis Caldera MD Primary Care Provider Acti ve Dr. Syed Allen , DO Emergency Provider Active Dr. Karen Aly MD Admit Provider, Other Provider Active Dr. Yisel Rendon MD Other Provider Active Dr. Olga Lidia Rasheed MD Other Provider Active Dr. Liu Hackett DO Attending Provider Active Team Status: Active Member Role Status Dates Dr. Luis Caldera MD Primary Care Provider Acti ve Dr. Syed Allen , DO Emergency Provider Active Dr. Karen Aly MD Admit Provider, Attending Provider, Other Provider Active Dr. Olga Lidia Rasheed MD Other Provider Active Dr. Yisel Rendon MD Other Provider Active Team Status: Active Member Role Status Dates Dr. Luis Caldera MD Primary Care Provider Acti ve Dr. Syed Allen , DO Emergency Provider Active Dr. Karen Aly MD Admit Provider, Other Provider Active Dr. Olga Lidia Rasheed MD Other Provider Active Dr. Yisel Rendon MD Other Provider Active Dr. Caryl Mcdermott MD Other Provider Active Dr. Júnior Chandra MD Attending Provider Active Team Status: Inactive Member Role Status Dates Dr. Luis Caldera MD Primary Care Provider, Ref erring Provider Active Debi Wetzel Attending Provider Active Team Status: Active Member Role Status Dates Dr. Luis Caldera MD Primary Care Provider Acti ve Dr. Syed Allen , Emergency Provider Active Dr. Karen Aly MD Admit Provider, Other Provider Active Dr. Olga Lidia Rasheed MD Other Provider Active Dr. Yisel Rendon MD Other Provider Active Dr. Caryl Mcdermott MD Attending Provider, Other Prov ider Active Team Status: Inactive Member Role Status Dates Dr. Luis Caldera MD Primary Care Provider Acti ve Dr. Syed Allen , DO Emergency Provider Active Dr. Karen Aly MD Admit Provider, Other Provider Active Dr. Olga Lidia Rasheed MD Other Provider Active Dr. Yisel Rendon MD Other Provider Active Dr. Caryl Mcdermott MD Attending Provider Active Team Status: Active Member Role Status Dates Dr. Luis Caldera MD Primary Care Provider Acti ve Walter MAYORGA MD Attending Provider Active Team Status: Inactive Member Role Status Dates Dr. Luis Caldera MD Primary Care Provider Acti ve Dr. Geremias Carey DO Emergency Provider Active Team Status: Active Member Role Status Dates Dr. Luis Caldera MD Primary Care Provider Acti ve Dr. Dandy Sauer MD Emergency Provider Active Dr. Gabriel Giraldo DO Admit Provider, Attending Pro vider Active Team Status: Active Member Role Status Dates Dr. Luis Caldera MD Primary Care Provider Acti ve Dr. Dandy Sauer MD Emergency Provider Active Dr. Gabriel Giraldo DO Admit Provider, Other Provide r Active Dr. Jesus Burnham MD Attending Provider Active Team Status: Active Member Role Status Dates Dr. Luis Caldera MD Primary Care Provider Acti ve Dr. Dandy Sauer MD Emergency Provider Active Dr. Gabriel Giraldo DO Admit Provider, Attending Provider, Other Provider Active Dr. Smith Leija MD Other Provider Active Team Status: Active Member Role Status Dates Dr. Luis Caldera MD Primary Care Provider Acti ve Dr. Ian Baltazar MD Attending Provider Activ e Team Status: Active Member Role Status Dates Dr. Luis Caldera MD Primary Care Provider Acti ve Dr. Júnior Chandra MD Attending Provider, Referring Pro vider Active Team Status: Inactive Member Role Status Dates Dr. Luis Caldera MD Primary Care Provider Acti ve Dr. Dandy Sauer MD Emergency Provider Active Dr. Gabriel Giraldo DO Admit Provider, Attending Pro vider Active Dr. Smith Leija MD Other Provider Active Team Status: Active Member Role Status Dates Dr. Luis Caldera MD Primary Care Provider Acti ve Dr. Dandy Sauer MD Emergency Provider Active Dr. Ryan Tinoco MD Admit Provider, R eferring Provider, Other Provider Active Dr. Liu Hackett DO Attending Provider Active Team Status: Active Member Role Status Dates Dr. Luis Caldera MD Primary Care Provider Acti ve Dr. Liu Hackett DO Attending Provider Active Dr. Ryan Tinoco MD Referring Provider Active Team Status: Active Member Role Status Dates Dr. Luis Caldera MD Primary Care Provider Acti ve Dr. Dandy Sauer MD Emergency Provider Active Dr. Ryan Tinoco MD Admit Provider, R eferring Provider, Other Provider Active Dr. Lizzeth Riggs MD Other Provider Active Dr. Liu Hackett DO Attending Provider Active Team Status: Active Member Role Status Dates Dr. Luis Caldera MD Primary Care Provider Acti ve Dr. Syed Allen , Emergency Provider Active Dr. Karen Aly MD Admit Provider, Other Provider Active Dr. Yisel Rendon MD Other Provider Active Dr. Liu Hackett , Attending Provider Active Dr. Caryl Mcdermott MD Referring Provider Active Team Status: Active Member Role Status Dates Dr. Luis Caldera MD Primary Care Provider Acti ve Dr. Syed Allen , Emergency Provider Active Dr. Karen Aly MD Admit Provider, Other Provider Active Dr. Yisel Rendon MD Other Provider Active Dr. Olga Lidia Rasheed MD Other Provider Active Dr. Liu Hackett DO Attending Provider Active Dr. Caryl Mcdermott MD Referring Provider Active Team Status: Active Member Role Status Dates Dr. Luis Caldera MD Primary Care Provider Acti ve Dr. Liu Hackett DO Attending Provider Active Dr. Caryl Mcdermott MD Referring Provider Active Team Status: Active Member Role Status Dates Dr. Luis Caldera MD Primary Care Provider Acti ve Dr. Ian Baltazar MD Attending Provider Activ e Dr. Smith Leija MD Referring Provider Active Team Status: Inactive Member Role Status Dates Dr. Luis Caldera MD Primary Care Provider, Ref erring Provider Active Ann Rodríguez SOLE SCRAPER, SOLE SCRAPER-C Attending Provider Active Team Status: Active Member Role Status Dates Dr. Luis Caldera MD Primary Care Provider Acti ve Dr. Júnior Chandra MD Attending Provider Active Dr. Ryan Tinoco MD Referring Provider Active Team Status: Active Member Role Status Dates Dr. Luis Caldera MD Primary Care Provider Acti ve Dr. Júnior Chandra MD Attending Provider Active Dr. Karen Aly MD Referring Provider Active Team Status: Inactive Member Role Status Dates Dr. Luis Caldera MD Primary Care Provider Acti ve Dr. Geremias Carey DO Attending Provider, Emergency Pr ovider Active Team Status: Active Member Role Status Dates Dr. Luis Caldera MD Primary Care Provider Acti ve Walter MAYORGA MD Attending Provider, Referring Pro vider Active Team Status: Inactive Member Role Status Dates Dr. Luis Caldera MD Primary Care Provider Acti ve Walter MAYORGA MD Attending Provider Active Team Status: Inactive Member Role Status Dates Dr. Luis Caldera MD Primary Care Provider Acti ve Debi Wetzel Active Dr. Júnior Chandra MD Attending Provider, Referring Pro vider Active Team Status: Inactive Member Role Status Dates Dr. Luis Caldera MD Primary Care Provider Acti ve Walter MAYORGA MD Attending Provider, Referring Pro vider Active Team Status: Inactive Member Role Status Dates Dr. Luis Caldera MD Primary Care Provider Acti ve Dr. Kee Merritt MD Attending Provider, Referring Provider Active Team Status: Active Member Role Status Dates Dr. Luis Caldera MD Primary Care Provider, Ref erring Provider Active Dr. Olga Lidia Rasheed MD Attending Provider Active Team Status: Inactive Member Role Status Dates Dr. Luis Caldera MD Primary Care Provider, Ref erring Provider Active Dr. Olga Lidia Rasheed MD Attending Provider Active Team Status: Active Member Role Status Dates Dr. Luis Caldera MD Primary Care Provider Acti ve Start: July 01, 2024 Walter MAYORGA MD Attending Provider Active S tart: July 01, 2024 Walter MAYORGA MD Referring Provider Active S tart: July 01, 2024 Team Status: Inactive Member Role Status Dates Dr. Luis Caldera MD Primary Care Provider Acti ve Start: July 07, 2024 End: July 07, 2024 Walter MAYORGA MD Attending Provider Active S tart: July 07, 2024 End: July 07, 2024 Team Status: Inactive Member Role Status Dates Dr. Luis Caldera MD Primary Care Provider Acti ve Start: July 27, 2024 End: July 27, 2024 Walter MAYORGA MD Attending Provider Active S tart: July 27, 2024 End: July 27, 2024 Team Status: Inactive Member Role Status Dates Dr. Luis Caldera MD Primary Care Provider Acti ve Start: August 04, 2024 End: August 04, 2024 Walter MAYORGA MD Attending Provider Active S tart: August 04, 2024 End: August 04, 2024 Team Status: Inactive Member Role Status Dates Dr. Luis Caldera MD Primary Care Provider Acti ve Start: September 29, 2024 End: September 29, 2024 Walter MAYORGA MD Attending Provider Active S tart: September 29, 2024 End: September 29, 2024 Walter MAYORGA MD Referring Provider Active S tart: September 29, 2024 End: September 29, 2024 Team Status: Active Member Role Status Dates Dr. Luis Caldera MD Primary Care Provider Acti ve Start: October 05, 2024 Walter MAYORGA MD Attending Provider Active S tart: October 05, 2024 Team Status: Inactive Member Role Status Dates Dr. Luis Caldera MD Primary Care Provider Acti ve Start: October 12, 2024 End: October 12, 2024 Dr. Luis Caldera MD Referring Provider Active Start: October 12, 2024 End: October 12, 2024 Dr. Olga Lidia Rasheed MD Attending Provider Active Start: October 12, 2024 End: October 12, 2024 Team Status: Inactive Member Role Status Dates Dr. Luis Caldera MD Primary Care Provider Acti ve Start: October 05, 2024 End: October 05, 2024 Walter MAYORGA MD Attending Provider Active S tart: October 05, 2024 End: October 05, 2024 Goals (unrecognized section and content) Goals may be documented in a n alternate section No data available for this sectionGoals may be documented in an alternate sectionGoals may be documented in an alternate sectionGoals may be documented in an alternate sectionGoals may be documented in an alternate sectionGoals may be documented in an alternate sectionGoals may be documented in an alternate sectionGoals may be documented in an alternate sectionGoals may be documented in an alternate section (unrecognized sect ion and content) No Status Records FoundNo Status Records FoundNo Status Records FoundNo Status Records FoundNo Status Records Found INFORMATION SOURCE (unrecogn ized section and content) DATE CREATED AUTHOR 01/02/2022 [facility] DATE CREATED AUTHOR AUTHOR'S ORGANIZ ATION 02/04/2022 [facility] DATE CREATED AUTHOR AUTHOR'S ORGANCJ ATION 04/19/2022 Replaced by [facility] (OK) DATE CREATED AUTHOR AUTHOR'S ORGANIZ ATION 11/07/2024 [facility] DATE CREATED AUTHOR AUTHOR'S ORGANIZ ATION 12/17/2024 [facility] FOR RECORDS PERTAINING TO PATIENTS WHO ARE [...] PRIMARY CLINICAL RECORDS. [facility]. provides no warranty or guarantee of the accuracy or completeness of information in this document.
--- OUTSIDE RECORDS SUMMARY | 2024-12-22 04:27 | XMS RPT_ITS | CCD ---
Author Organization [facility] Care Team Providers Care Retail Sales Vitamin Consultant Name Role Phone Abdulaziz Caldera MD Primary [...] Dr. Luis Caldera Primary Care Provider Dr. Olga Lidia Rasheed Attending Provider [...] Dr. Luis Caldera Primary Care Provider [phone] Dr. Karen Aly Admit Provider Dr. Karen Aly Attending Provider Jermain, Dr. Karen Juan Other Provider Dr. Gabriel Giraldo Attending Provider Dr. Gabriel Giraldo Other Provider Dr. Dandy Sauer Emergency Provider Earnest, Dr. Davis Admit Provider Dr. Ryan Tinooc Attending Provider Earnest, Dr. Davis Other Provider oRxann, Dr. Hatfield Attending Provider Dr. Lizzeth Riggs Other Provider Dr. Lizzeth Riggs Attending Provider Carolyn LOZA, DENIA Damon Attending Provider Dr. Syed Allen Emergency Provider Dr. Yisel Rendon Attending Provider Dr. Yisel Rendon Other Provider Dr. Olga Lidia Rasheed Other Provider Dr. Olga Lidia Rasheed Attending Provider Dr. Caryl Mcdermott Other Provider Dr. Júniro Chandra Attending Provider Dr. Luis Caldera Referring Provider Debi Wetzel Attending Provider Unavailable Dr. Caryl Mcdermott Attending Provider Dr. Júnior Chandra Attending Provider Dr. Júnior Chandra Referring Provider Dr. Gabriel Giraldo Admit Provider Dr. Jesus Burnham Attending Provider Dr. Ian Baltazar Attending Provider Dr. Smith Leija Other Provider Dr. Ryan Tinoco Referring Provider Dr. Júnior Chandra Attending Provider Dr. Júnior Chandra Referring Provider Dr. Karen Aly Referring Provider Dr. Caryl Mcdermott Referring Provider [phone] Dr. Smith Leija Referring Provider Marcos DANIEL, AAYUSH Juarez Attending Provider Dr. [...] Dr. Luis Caldera Primary Care Provider [phone] Dr. Syed Allen Emergency Provider Dr. Karen Aly Admit Provider Dr. Karen Aly Other Provider Dr. Yisel Rendon Attending Provider Dr. Yisel Rendon Other Provider Dr. Olga Lidia Rasheed Other Provider Dr. Luis Caldera Primary Care Provider Dr. Luis Caldera Referring Provider Debi Wetzel Attending Provider Unavailable Marcos SLAT GRADER, GURPREETC Ann Attending Provider Dr. Luis Caldera Primary Care Provider Dr. Luis Caldera Referring Provider Dr. Olga Lidia Rasheed Attending Provider Verenice COLBERT, Dr. Smith Primary Care Provider Rosita COLBERT, Walter Attending Provider Unavailable Rosita COLBERT, Walter Referring Provider Unavailable Verenice COLBERT, Dr. Smith Referring Provider [phone] Wili COLBERT, Dr. Duggan Attending Provider Deperro [...] Bursley, Luis Primary Care Unavailable Deperro OLS, Wlater Attending Unavailable Bursley, Luis Primary Care Unavailable [...] (20 sources) pantoprazole Drug Allergy 09-24-2019 Diarrhea [facility] (20 sources) Propofol Drug Allergy 12-06-2021 Other [facility] Comment on above: GETS AGGRESSIVE (1 source) Propofol Drug Allergy 10-12-2024 [facility] Repository Medications Current Medications Medication Drug [...] Comment on above: TAKE 1 TABLET BY [facility] ONCE DAILY. FOR CHOLESTEROL. bisacodyl 10 [...] Comment on above: Take 1 capsule by [facility] one time a week. docusate sodium 50 mg / sennosides, assisted 8.6 mg oral tablet (12 sources) Start: 01-26-2023 Start: 01-26-2023 take 2 tablets by [facility] twice daily Sennosides-Docusate Sodium (Stool Softener-Stimulant Laxat) [...] hydrochloride 10 mg oral tablet (20 sources) X-xvutyo-S-aspartate Receptor Antagonist Start: 02-13-2023 take 1 tablet [...] on above: Take 1 capsule by mo [facility] daily at bedtime. 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] Onset: 03-10-2024 Episodic Other aftercare (1 source) terminal clerk (current) use of insulin; Translations: [[facility] (current) use of insulin] Onset: 12-27-2023 Episodic [...] Vitamin D 25-OH 31.8 ng/mL Normal 30-100 [facility] Comment on above: Order Comment: 215.2 Result Comment: Laure min D Status Deficiency: <20 ng/mL (50nmol/L) Insufficiency: 20-30 ng/mL (50-75 nmol/L) Sufficiency: 30-100 ng/mL (75-250 nmol/L) Toxicity: >100 ng/mL (>250 nmol/L) Performed By: #### L 9200.0000 #### [facility] [address] [place], [place], [id number] Urine Cultureon 11-25-2024 [facility] Culture exhibits no growth. Normal [facility] Comment on above: Performed By: #### L 9200.0000 #### [facility] [address] [place], [place], [id number] CBC-Complete Blood Cnt No Di ffon 11-24-2024 Erythrocyte distribution width (RBC) [Ratio] 13.4 % Normal 11.6-14.6 [facility] Comment on above: Order Comment: 215.2 Performed By: #### L 9200.0000 #### [facility] [address] [place], [address] Hematocrit (Bld) [Volume fraction] 38.0 % Low 40-54 [facility] Comment on above: Order Comment: 215.2 Performed By: #### L 9200.0000 #### [facility] [address] [place], [address] Hemoglobin (Bld) [Mass/Vol] 12.1 g/dL Low 13.0-16. 5 [facility] Comment on above: Order Comment: 215.2 Performed By: #### L 9200.0000 #### [facility] [address] [place], [address] MCH (RBC) [Entitic mass] 27.6 pg Normal 27.0-32.0 [facility] Comment on above: Order Comment: 215.2 Performed By: #### L 9200.0000 #### [facility] [address] [place], [address] MCHC (RBC) [Mass/Vol] 31.8 g/dL Low 32-36 [facility] Comment on above: Order Comment: 215.2 Performed By: #### L 9200.0000 #### [facility] [address] [place], [address] MCV (RBC) [Entitic vol] 86.6 fL Normal 80-94 [facility] Comment on above: Order Comment: 215.2 Performed By: #### L [id number] #### [facility] [address] [place], [address] Platelet mean volume (Bld) [Entitic vol] 9.4 fL Normal 6.2-12.0 [facility] Comment on above: Order Comment: 215.2 Performed By: #### L 9200.0000 #### [facility] [address] [place], [address] Platelets (Bld) [#/Vol] 200 10*3/uL Normal 150-450 [facility] Comment on above: Order Comment: 215.2 Performed By: #### L 9200.0000 #### [facility] [address] [place], [address] RBC (Bld) [#/Vol] 4.39 10*6/uL Low 4.6-6.2 [facility] Comment on above: Order Comment: 215.2 Performed By: #### L 9200.0000 #### [facility] [address] [place], [address] RDW SD 41.4 fl Normal 35.1-43.9 [facility] Comment on above: Order Comment: 215.2 Performed By: #### L [id number] #### [facility] [address] [place], [address] WBC (Bld) [#/Vol] 8.9 10*3/uL Normal 4.4-11.0 [facility] Comment on above: Order Comment: 215.2 Performed By: #### L 9200.0000 #### [facility] [address] [place], [address] Comprehensive Metabolic Prof alon 11-24-2024 Albumin [Mass/Vol] 3.3 g/dL Low 3.4-4.8 [facility] Comment on above: Order Comment: 215.2 Performed By: #### L 9200.0000 #### [facility] [address] [place], [address] Albumin/Globulin [Mass ratio] 1.6 {ratio} Normal 0.9-2.4 [facility] Comment on above: Order Comment: 215.2 Performed By: #### L [id number] #### [facility] [address] [place], [address] ALK PHOS 101 U/L Normal 40-129 [facility] Comment on above: Order Comment: 215.2 Performed By: #### L [id number] #### [facility] [address] [place], [address] ALT [Catalytic activity/Vol] 14 U/L Normal <=46 [facility] Comment on above: Order Comment: 215.2 Performed By: #### L [id number] #### [facility] [address] [place], [address] AST [Catalytic activity/Vol] 16 U/L Normal <=37 [facility] Comment on above: Order Comment: 215.2 Performed By: #### L [id number] #### [facility] [address] [place], [address] Bilirubin [Mass/Vol] 0.34 mg/dL Normal 0.00-1.30 [facility] Comment on above: Order Comment: 215.2 Performed By: #### L [id number] #### [facility] [address] [place], [address] BUN/CRE 19.5 RATIO Normal 10-20 [facility] Comment on above: Order Comment: 215.2 Performed By: #### L [id number] #### [facility] [address] [place], [address] Calcium [Mass/Vol] 8.9 mg/dL Normal 7.6-11.0 [facility] Comment on above: Order Comment: 215.2 Performed By: #### L 9200.0000 #### [facility] [address] [place], [address] Chloride [Moles/Vol] 105 mmol/L Normal 98-108 [facility] Comment on above: Order Comment: 215.2 Performed By: #### L [id number] #### [facility] [address] [place], [address] CO2 [Moles/Vol] 21.7 mmol/L Normal 21.0-32.0 [facility] Comment on above: Order Comment: 215.2 Performed By: #### L [id number] #### [facility] [address] [place], [address] Creatinine [Mass/Vol] 1.15 mg/dL Normal 0.70-1.20 [facility] Comment on above: Order Comment: 215.2 Performed By: #### L [id number] #### [facility] [address] [place], [address] GAP 14 Normal 5-15 [facility] Comment on above: Order Comment: 215.2 Performed By: #### L 9200.0000 #### [facility] [address] [place], [address] GFR/1.73 sq M.predicted among non-blacks MDRD (S/P/Bld) [Vol rate/Area] 66 mL/min/{1.73_m2} Normal >60 [facility] Comment on above: Order Comment: 215.2 Result Comment: mL/m in/1.73m2 CKD-EPI Creatinine Equation (2020) Performed By: #### L 9200.0000 #### [facility] [address] [place], [address] Globulin (S) [Mass/Vol] 2.0 g/dL Low 2.2-4.2 [facility] Comment on above: Order Comment: 215.2 Performed By: #### L [id number] #### [facility] [address] [place], [address] Glucose [Mass/Vol] 139 mg/dL High 70-99 [facility] Comment on above: Order Comment: 215.2 Performed By: #### L 9200.0000 #### [facility] [address] [place], [address] Potassium [Moles/Vol] 4.2 mmol/L Normal 3.3-5.1 [facility] Comment on above: Order Comment: 215.2 Performed By: #### L [id number] #### [facility] [address] [place], [address] Sodium [Moles/Vol] 141 mmol/L Normal 133-145 [facility] Comment on above: Order Comment: 215.2 Performed By: #### L [id number] #### [facility] [address] [place], [address] T PROT 5.3 g/dL Low 5.9-8.4 [facility] Comment on above: Order Comment: 215.2 Performed By: #### L [id number] #### [facility] [address] [place], [address] Urea nitrogen [Mass/Vol] 22 mg/dL High 4-19 [facility] Comment on above: Order Comment: 215.2 Performed By: #### L [id number] #### [facility] [address] [place], [address] Urinalysis, Completeon 11-24 WBC 0-5 SEEN Normal 0-5 [facility] Comment on above: Order Comment: LEILA TER SPECIMEN Performed By: #### L [id number] #### [facility] [address] [place], [address] BACTERIA 0 SEEN Normal None Seen [facility] Comment on above: Order Comment: LEILA TER SPECIMEN Performed By: #### L [id number] #### [facility] [address] [place], [address] EPI,SQUAMOUS 0 SEEN Normal 0-5 [facility] Comment on above: Order Comment: LEILA TER SPECIMEN Performed By: #### L [id number] #### [facility] [address] [place], [address] Mucus Ql (Urine sed) 0 SEEN Normal [facility] Comment on above: Order Comment: LEILA TER SPECIMEN Performed By: #### L [id number] #### [facility] [address] [place], [place], [id number] RBC 0 SEEN Normal 0-5 [facility] Comment on above: Order Comment: LEILA TER SPECIMEN Performed By: #### L [id number] #### [facility] [address] [place], [address] CNPNon 11-06-2024 CNPN Telephone (4CQ) RICHARD ROY ([id number]) 1945 M Date Time Provider Department 11/06/24 ABDULAZIZ CALDERA 4CQ During your visit today, we recorded the following information about you: Ann Raymond 11/06/2024 10:55 AM Signed Spoke with spouse as patient is over due for visit with PCP , stated patient is at [facility] [place]. We did not remove PCP. Abdulaziz Caldera [...] time a week. - blood sugar diagnostic (AnatoleTOUCH ULTRA TEST) test strip Test blood sugar(s) [...] Status:Closed by AMADA COHN on 11/06/24 Normal [facility] Cardiology Visit Reporton Cardiology Visit Report [facility] [address] [place] [address] OFFICE VISIT Date of Service: 10/12/24 MR#: [id number] Acct: [id number] Name: RICHARD ROY Rep #: [id number] : 1945 Provider: Dr. Olga Lidia Rasheed MD Age/Sex: 79/M Location: [facility] Status: Signed HPI HPI History of Present [...] Oxygen Delivery Method room air Comment per residential report Intake Visit Reasons: 6 M FU Stamp Mounter Required: No Accompanied by: residential employee Is patient in pain?: No Allergies [...] bisacodyl 10 mg rectal suppository 10 mg DE DAILY PRN constipation 05/30/23 10/12/24 History loperamide [...] Hypertension Father Heart disease Social History housing: residential current occupational status: retired Smoking Status: Never smoker alcohol intake: never substance use type: does not (more content not included)... Normal [facility] Calculated very low density lipoprotein (VLDL) cholesterol measurementOrdered By: Walter Becker on 10-05-2024 VLDL Cholesterol 41 mg/dL High 5-40 [facility] LDL calc ser/plasOrdered By: Walter Becker on 10-05-2024 LDL Cholesterol, Calculated 31 mg/dL [facility] Comment on above: Xximaakybe=917-123 m g/dL & Higher Mzun=159 mg/dL or greater Lipid Profileon 10-05-2024 CHOL:HDL 3.37 Normal [facility] Comment on above: Order Comment: 215.2 Performed By: #### L [id number] #### [facility] [address] [place], [place], [id number] ([address]) Cholesterol [Mass/Vol] 103 mg/dL Normal <=200 [facility] Comment on above: Order Comment: 215.2 Result Comment: Chol esterol level, Desirable <200 mg/dL Borderline high cholesterol 200-239 mg/dL High cholesterol >=240 mg/dL Recommendations of the NCEP Adult Treatment Panel for the following risk-cutoff thresholds for the [place] population. Performed By: #### L 9200.0000 #### [facility] [address] [place], [place], [id number] ([address]) Cholesterol in HDL [Mass/Vol] 31 mg/dL Low [facility] Comment on above: Order Comment: 215.2 Result Comment: Stephanie onal Cholesterol Education Program (NCEP) guidelines: <40 mg/dL: Low HDL-cholesterol (major risk factor for CHD) >= 60 mg/dL: High HDL-cholesterol (negative risk factor for CHD) HDL-cholesterol is affected by a number of factors, e.g. smoking, exercise, hormones, sex and age. Performed By: #### L 9200.0000 #### [facility] [address] [place], [address] Cholesterol in LDL [Mass/Vol] 31 mg/dL Normal [facility] Comment on above: Order Comment: 215.2 Result Comment: Bord pzxhjl=713-352 mg/dL Higher Nmbx=176 mg/dL or greater Performed By: #### L 9200.0000 #### [facility] [address] [place], [address] Cholesterol in VLDL [Mass/Vol] 41 mg/dL High 5-40 [facility] Comment on above: Order Comment: 215.2 Performed By: #### L 9200.0000 #### [facility] [address] [place], [address] Triglyceride [Mass/Vol] 207 mg/dL High [facility] Comment on above: Order Comment: 215.2 Result Comment: The drugs N-Acetylcysteine and Metamizole may falsely depress this assay. Normal range: <150 mg/dL Borderline High: 150-199 mg/dL High: 200-499 mg/dL Very High: >500 mg/dL Performed By: #### L 9200.0000 #### [facility] [address] [place], [address] Screening total cholesterol/ high density lipoprotein (HDL) cholesterol ratioOrdered By: Walter Becker on 10-05-2024 Cholesterol.total/Cholester ol in HDL [Mass ratio] 3.37 {ratio} [facility] Serum or plasma cholesterol in HDL measurement (mass/volume)Ordered By: Walter Becker on 10-05-2024 Cholesterol in HDL [Mass/Vol] 31 mg/dL Low >40 [facility] Comment on above: National Cholesterol Education Program (NCEP) guidelines:<40 mg/dL: Low HDL-cholesterol (major risk factor for CHD)>= 60 mg/dL: High HDL-cholesterol (negative risk factor for CHD)HDL-cholesterol is affected by a number of factors, e.g. smoking, exercise, hormones, sex and age. Serum or plasma cholesterol measurement (mass/volume)Ordered By: Walter Becker on 10-05-2024 Cholesterol [Mass/Vol] 103 mg/dL <201 [facility] Comment on above: Cholesterol level, D esirable <200 mg/dLBorderline high cholesterol 200-239 mg/dLHigh cholesterol >=240 mg/dLRecommendations of the NCEP Adult Treatment Panel for the following risk-cutoff thresholds for the [place] population. Triglycerides measurementOrd ered By: Walter Becker on 10-05-2024 Triglyceride [Mass/Vol] 207 mg/dL High <199 [facility] Comment on above: The drugs N-Acetylcy steine and Metamizole may falsely depress this assay. Normal range: <150 mg/dLBorderline High: 150-199 mg/dLHigh: 200-499 mg/dLVery High: >500 mg/dL Anion gap in Serum or Plasma Ordered By: Walter Becker on 09-29-2024 Anion gap [Moles/Vol] 11 mmol/L 5-15 [facility] BUN/creatinine ratioOrdered By: Walter Becker on 09-29-2024 Urea nitrogen/Creatinine [Mass ratio] 20.5 mg/mg High 10-20 [facility] Bilirubin, totalOrdered By: Walter Becker on 09-29-2024 Bilirubin [Mass/Vol] 0.31 mg/dL 0.00-1.30 [facility] CBC-Complete Blood Cnt No Di ffon 09-29-2024 Erythrocyte distribution width (RBC) [Ratio] 13.7 % Normal 11.6-14.6 [facility] Comment on above: Order Comment: 215.2 Performed By: #### L 500.4050, L501.9985, L100.0500 #### [facility] [address] [place], [address] Hematocrit (Bld) [Volume fraction] 37.0 % Low 40-54 [facility] Comment on above: Order Comment: 215.2 Performed By: #### L 500.4050, L501.9985, L100.0500 #### [facility] [address] [place], [address] Hemoglobin (Bld) [Mass/Vol] 11.8 g/dL Low 13.0-16. 5 [facility] Comment on above: Order Comment: 215.2 Performed By: #### L 500.4050, L501.9985, L100.0500 #### [facility] [address] [place], [address] MCH (RBC) [Entitic mass] 27.9 pg Normal 27.0-32.0 [facility] Comment on above: Order Comment: 215.2 Performed By: #### L 500.4050, L501.9985, L100.0500 #### [facility] [address] [place], [address] MCHC (RBC) [Mass/Vol] 31.9 g/dL Low 32-36 [facility] Comment on above: Order Comment: 215.2 Performed By: #### L 500.4050, L501.9985, L100.0500 #### [facility] [address] [place], [address] MCV (RBC) [Entitic vol] 87.5 fL Normal 80-94 [facility] Comment on above: Order Comment: 215.2 Performed By: #### L 500.4050, L501.9985, L100.0500 #### [facility] [address] [place], [address] Platelet mean volume (Bld) [Entitic vol] 9.6 fL Normal 6.2-12.0 [facility] Comment on above: Order Comment: 215.2 Performed By: #### L 500.4050, L501.9985, L100.0500 #### [facility] [address] [place], [address] Platelets (Bld) [#/Vol] 226 10*3/uL Normal 150-450 [facility] Comment on above: Order Comment: 215.2 Performed By: #### L 500.4050, L501.9985, L100.0500 #### [facility] [address] [place], [address] RBC (Bld) [#/Vol] 4.23 10*6/uL Low 4.6-6.2 [facility] Comment on above: Order Comment: 215.2 Performed By: #### L 500.4050, L501.9985, L100.0500 #### [facility] [address] [place], [address] RDW SD 43.7 fl Normal 35.1-43.9 [facility] Comment on above: Order Comment: 215.2 Performed By: #### L 500.4050, L501.9985, L100.0500 #### [facility] [facility] [address] [place], [address] WBC (Bld) [#/Vol] 8.9 10*3/uL Normal 4.4-11.0 [facility] Comment on above: Order Comment: 215.2 Performed By: #### L [id number], L501.9985, L100.0500 #### [facility] [address] [place], [address] Carbon dioxide, total [Moles /volume] in Central venous bloodOrdered By: Walter Becker on 09-29-2024 CO2 [Moles/Vol] 25.6 mmol/L 21.0-32.0 [facility] Chloride assayOrdered By: Horner on 09-29-2024 Chloride [Moles/Vol] 104 mmol/L 98-108 [facility] Comprehensive Metabolic Prof ilon 09-29-2024 Albumin [Mass/Vol] 3.6 g/dL Normal 3.4-4.8 [facility] Comment on above: Order Comment: 215.2 Performed By: #### L [id number], L501.9985, L100.0500 #### [facility] [address] [place], [address] Albumin/Globulin [Mass ratio] 1.8 {ratio} Normal 0.9-2.4 [facility] Comment on above: Order Comment: 215.2 Performed By: #### L [id number], [id number], L100.0500 #### [facility] [address] [place], [address] ALK PHOS 101 U/L Normal 40-129 [facility] Comment on above: Order Comment: 215.2 Performed By: #### L [id number], [id number], L100.0500 #### [facility] [address] [place], [address] ALT [Catalytic activity/Vol] 19 U/L Normal <=46 [facility] Comment on above: Order Comment: 215.2 Performed By: #### L [id number], [id number], L100.0500 #### [facility] [address] [place], [address] AST [Catalytic activity/Vol] 15 U/L Normal <=37 [facility] Comment on above: Order Comment: 215.2 Performed By: #### L [id number], [id number], L100.0500 #### [facility] [address] [place], [address] Bilirubin [Mass/Vol] 0.31 mg/dL Normal 0.00-1.30 [facility] Comment on above: Order Comment: 215.2 Performed By: #### L [id number], [id number], L100.0500 #### [facility] [address] [place], [address] BUN/CRE 20.5 RATIO High 10-20 [facility] Comment on above: Order Comment: 215.2 Performed By: #### L [id number], [id number], L100.0500 #### [facility] [address] [place], [address] Calcium [Mass/Vol] 9.2 mg/dL Normal 7.6-11.0 [facility] Comment on above: Order Comment: 215.2 Performed By: #### L [id number], [id number], L100.0500 #### [facility] [address] [place], [address] Chloride [Moles/Vol] 104 mmol/L Normal 98-108 [facility] Comment on above: Order Comment: 215.2 Performed By: #### L [id number], [id number], L100.0500 #### [facility] [address] [place], [address] CO2 [Moles/Vol] 25.6 mmol/L Normal 21.0-32.0 [facility] Comment on above: Order Comment: 215.2 Performed By: #### L [id number], [id number], L100.0500 #### [facility] [address] [place], [address] Creatinine [Mass/Vol] 1.10 mg/dL Normal 0.70-1.20 [facility] Comment on above: Order Comment: 215.2 Performed By: #### L [id number], [id number], L100.0500 #### [facility] [address] [place], [address] GAP 11 Normal 5-15 [facility] Comment on above: Order Comment: 215.2 Performed By: #### L [id number], [id number], L100.0500 #### [facility] [address] [place], [address] GFR/1.73 sq M.predicted among non-blacks MDRD (S/P/Bld) [Vol rate/Area] 70 mL/min/{1.73_m2} Normal >60 [facility] Comment on above: Order Comment: 215.2 Result Comment: mL/m in/1.73m2 CKD-EPI Creatinine Equation (2020) Performed By: #### L [id number], L501.9985, L100.0500 #### [facility] [address] [place], [address] Globulin (S) [Mass/Vol] 2.0 g/dL Low 2.2-4.2 [facility] Comment on above: Order Comment: 215.2 Performed By: #### L 500.4050, [id number], L100.0500 #### [facility] [address] [place], [address] Glucose [Mass/Vol] 155 mg/dL High 70-99 [facility] Comment on above: Order Comment: 215.2 Performed By: #### L 500.4050, [id number], L100.0500 #### [facility] [address] [place], [address] Potassium [Moles/Vol] 4.2 mmol/L Normal 3.3-5.1 [facility] Comment on above: Order Comment: 215.2 Performed By: #### L [id number], [id number], L100.0500 #### [facility] [address] [place], [address] Sodium [Moles/Vol] 141 mmol/L Normal 133-145 [facility] Comment on above: Order Comment: 215.2 Performed By: #### L 500.4050, [id number], L100.0500 #### [facility] [address] [place], [address] T PROT 5.6 g/dL Low 5.9-8.4 [facility] Comment on above: Order Comment: 215.2 Performed By: #### L [id number], [id number], L100.0500 #### [facility] [address] [place], [address] Urea nitrogen [Mass/Vol] 23 mg/dL High 4-19 [facility] Comment on above: Order Comment: 215.2 Performed By: #### L [id number], L501.9985, L100.0500 #### [facility] [address] [place], [address] Erythrocyte distribution wid th (RBC) [Ratio]Ordered By: Walter Becker on 09-29-2024 Erythrocyte distribution width (RBC) [Entitic vol] 43.7 fL 35.1-43.9 [facility] Erythrocyte distribution wid th ratioOrdered By: Walter Becker on 09-29-2024 Erythrocyte distribution width (RBC) [Ratio] 13.7 % 11.6-14.6 [facility] GFR/1.73 sq M.predicted kimberly g non-blacks MDRD (S/P/Bld) [Vol rate/Area]Ordered By: Walter Becker on 09-29-2024 Estimated GFR (MDRD) Non-Af Amer 70 >60 [facility] Comment on above: mL/min/1.73m2 CKD-EP I Creatinine Equation (2020) Hematocrit Auto (Bld) [Volum e fraction]Ordered By: Walter Becker on 09-29-2024 Hematocrit (Bld) [Volume fraction] 37.0 % Low 40-54 [facility] Hemoglobin A1con 09-29-2024 HbA1c (Bld) [Mass fraction] 6.6 % Normal <=5.6 [facility] Comment on above: Order Comment: 215.2 Performed By: #### L [id number], L501.9985, L100.0500 #### [facility] [address] [place], [address] Hemoglobin A1c percentageOrd ered By: Walter Becker on 09-29-2024 HbA1c (Bld) [Mass fraction] 6.6 % >5.7 [facility] Hemoglobin measurementOrdere d By: Walter Becker on 09-29-2024 Hemoglobin (Bld) [Mass/Vol] 11.8 g/dL Low 13.0-16. 5 [facility] - Chemistry and C hemistry - challengeOrdered By: Walter Becker on 09-29-2024 AST [Catalytic activity/Vol] 15 U/L <38 [facility] MCV (mean corpuscular volume ) determinationOrdered By: Walter Becker on 09-29-2024 MCV (RBC) [Entitic vol] 87.5 fL 80-94 [facility] Mean corpuscular hemoglobin (MCH) determinationOrdered By: Walter Becker on 09-29-2024 MCH (RBC) [Entitic mass] 27.9 pg 27.0-32.0 [facility] Mean corpuscular hemoglobin concentration (MCHC) determinationOrdered By: Walter Becker on 09-29-2024 MCHC (RBC) [Mass/Vol] 31.9 g/dL Low 32-36 [facility] Mean platelet volume determi nationOrdered By: Walter Becker on 09-29-2024 Platelet mean volume (Bld) [Entitic vol] 9.6 fL 6.2-12.0 [facility] Platelet countOrdered By: Horner on 09-29-2024 Platelets (Bld) [#/Vol] 226 10*3/uL 150-450 [facility] Potassium (Unsp spec) [Mass/ Vol]Ordered By: Walter Becker on 09-29-2024 Potassium [Moles/Vol] 4.2 mmol/L 3.3-5.1 [facility] RBC Auto (Bld) [#/Vol]Ordere d By: Walter Becker on 09-29-2024 RBC (Bld) [#/Vol] 4.23 10*6/uL Low 4.6-6.2 [facility] Serum creatinine measurement (mass/volume)Ordered By: Walter Becker on 09-29-2024 Creatinine [Mass/Vol] 1.10 mg/dL 0.70-1.20 [facility] Serum globulin measurementOr dered By: Walter Becker on 09-29-2024 Globulin (S) [Mass/Vol] 2.0 g/dL Low 2.2-4.2 [facility] Serum glucose measurement (m ass/volume)Ordered By: Walter Becker on 09-29-2024 Glucose [Mass/Vol] 155 mg/dL High 70-99 [facility] Serum or plasma alanine davis otransferase (ALT) measurementOrdered By: Walter Becker on 09-29-2024 ALT [Catalytic activity/Vol] 19 U/L <47 [facility] Serum or plasma albumin antoine urement (mass/volume)Ordered By: Walter Becker on 09-29-2024 Albumin [Mass/Vol] 3.6 g/dL 3.4-4.8 [facility] Serum or plasma albumin/glob ulin mass ratioOrdered By: Walter Becker on 09-29-2024 Albumin/Globulin [Mass ratio] 1.8 {ratio} 0.9-2.4 [facility] Serum or plasma alkaline marilin sphatase measurementOrdered By: Walter Becker on 09-29-2024 ALP [Catalytic activity/Vol] 101 U/L 40-129 [facility] Serum or plasma calcium antoine urement (mass/volume)Ordered By: Walter Becker on 09-29-2024 Calcium [Mass/Vol] 9.2 mg/dL 7.6-11.0 [facility] Serum or plasma urea nitroge n measurement (mass/volume)Ordered By: Walter Becker on 09-29-2024 Urea nitrogen [Mass/Vol] 23 mg/dL High 4-19 [facility] Sodium levelOrdered By: Walter Becker on 09-29-2024 Sodium [Moles/Vol] 141 mmol/L 133-145 [facility] Total proteinOrdered By: Crystal Becker on 09-29-2024 Protein [Mass/Vol] 5.6 g/dL Low 5.9-8.4 [facility] White blood cell (WBC) count Ordered By: Walter Becker on 09-29-2024 WBC (Bld) [#/Vol] 8.9 10*3/uL 4.4-11.0 [facility] Urine Cultureon 08-05-2024 URC Culture exhibits no growth. Normal [facility] Comment on above: Performed By: #### L [id number] #### [facility] [address] [place], [address] Albumin to globulin ratioOrd ered By: Walter Becker on 08-04-2024 Albumin/Globulin [Mass ratio] 1.0 {ratio} 0.9-2.4 [facility] Bilirubin Test strip Ql (U)O rdered By: Walter Becker on 08-04-2024 Bilirubin Ql (U) Negative Negative [facility] Bilirubin, totalOrdered By: Walter Becker on 08-04-2024 Bilirubin [Mass/Vol] 0.50 mg/dL 0.20-1.00 [facility] Comment on above: For patients on eltr ombopag therapy, use of Dimension [place] TBIL is not recommended. Blood urea nitrogen (BUN)/cr eatinine ratioOrdered By: Walter Becker on 08-04-2024 Urea nitrogen/Creatinine [Mass ratio] 21.1 mg/mg High 10-20 [facility] CBC-Complete Blood Cnt No Di ffon 08-04-2024 Erythrocyte distribution width (RBC) [Ratio] 13.0 % Normal 11.6-14.6 [facility] Comment on above: Order Comment: 215.2 Performed By: #### L [id number] #### [facility] [address] [place], [address] Hematocrit (Bld) [Volume fraction] 41.3 % Normal 40-54 [facility] Comment on above: Order Comment: 215.2 Performed By: #### L [id number] #### [facility] [address] [place], [address] Hemoglobin (Bld) [Mass/Vol] 12.9 g/dL Low 13.0-16. 5 [facility] Comment on above: Order Comment: 215.2 Performed By: #### L [id number] #### [facility] [address] [place], [address] MCH (RBC) [Entitic mass] 27.3 pg Normal 27.0-32.0 [facility] Comment on above: Order Comment: 215.2 Performed By: #### L [id number] #### [facility] [address] [place], [address] MCHC (RBC) [Mass/Vol] 31.2 g/dL Low 32-36 [facility] Comment on above: Order Comment: 215.2 Performed By: #### L [id number] #### [facility] [address] [place], [address] MCV (RBC) [Entitic vol] 87.3 fL Normal 80-94 [facility] Comment on above: Order Comment: 215.2 Performed By: #### L [id number] #### [facility] [address] [place], [address] Platelet mean volume (Bld) [Entitic vol] 9.3 fL Normal 6.2-12.0 [facility] Comment on above: Order Comment: 215.2 Performed By: #### L [id number] #### [facility] [address] [place], [address] Platelets (Bld) [#/Vol] 295 10*3/uL Normal 150-450 [facility] Comment on above: Order Comment: 215.2 Performed By: #### L [id number] #### [facility] [address] [place], [address] RBC (Bld) [#/Vol] 4.73 10*6/uL Normal 4.6-6.2 [facility] Comment on above: Order Comment: 215.2 Performed By: #### L [id number] #### [facility] [address] [place], [address] RDW SD 41.8 fl Normal 35.1-43.9 [facility] Comment on above: Order Comment: 215.2 Performed By: #### L [id number] #### [facility] [address] [place], [address] WBC (Bld) [#/Vol] 9.3 10*3/uL Normal 4.4-11.0 [facility] Comment on above: Order Comment: 215.2 Performed By: #### L [id number] #### [facility] [address] [place], [address] Carbon dioxide measurementOr dered By: Walter Becker on 08-04-2024 CO2 [Moles/Vol] 29.0 mmol/L 21.0-32.0 [facility] Chloride measurementOrdered By: Walter Becker on 08-04-2024 Chloride [Moles/Vol] 104 mmol/L 98-107 [facility] Comprehensive Metabolic Prof ilon 08-04-2024 Albumin [Mass/Vol] 3.5 g/dL Normal 3.2-5.0 [facility] Comment on above: Order Comment: 215.2 Performed By: #### L [id number] #### [facility] [address] [place], [address] Albumin/Globulin [Mass ratio] 1.0 {ratio} Normal 0.9-2.4 [facility] Comment on above: Order Comment: 215.2 Performed By: #### L [id number] #### [facility] [address] [place], [address] ALK P 125 U/L High 45-117 [facility] Comment on above: Order Comment: 215.2 Performed By: #### L [id number] #### [facility] [address] [place], [address] ALT [Catalytic activity/Vol] 19 U/L Normal 16-61 [facility] Comment on above: Order Comment: 215.2 Performed By: #### L [id number] #### [facility] [address] [place], [address] AST [Catalytic activity/Vol] 12 U/L Low 15-37 [facility] Comment on above: Order Comment: 215.2 Performed By: #### L [id number] #### [facility] [address] [place], [address] Bilirubin [Mass/Vol] 0.50 mg/dL Normal 0.20-1.00 [facility] Comment on above: Order Comment: 215.2 Result Comment: For patients on eltrombopag therapy, use of Dimension [place] TBIL is not recommended. Performed By: #### L [id number] #### [facility] [address] [place], [address] BUN/CRE 21.1 RATIO High 10-20 [facility] Comment on above: Order Comment: 215.2 Performed By: #### L [id number] #### [facility] [address] [place], [address] CA,Total 9.7 mg/dL Normal 8.5-10.1 [facility] Comment on above: Order Comment: 215.2 Performed By: #### L [id number] #### [facility] [address] [place], [address] Chloride [Moles/Vol] 104 mmol/L Normal 98-107 [facility] Comment on above: Order Comment: 215.2 Performed By: #### L [id number] #### [facility] [address] [place], [address] CO2 [Moles/Vol] 29.0 mmol/L Normal 21.0-32.0 [facility] Comment on above: Order Comment: 215.2 Performed By: #### L [id number] #### [facility] [address] [place], [address] Creatinine [Mass/Vol] 1.28 mg/dL Normal 0.70-1.30 [facility] Comment on above: Order Comment: 215.2 Result Comment: The validity of the calculated GFR GFRAA in patients over 70 years has not been determined. Clinical correlation is essential. Performed By: #### L [id number] #### [facility] [address] [place], [address] EST GFR - AA 70 mL/min Normal >60 [facility] Comment on above: Order Comment: 215.2 Result Comment: Afri can [place] GFR Calc Performed By: #### L [id number] #### [facility] [address] [place], [address] GAP 7 Normal 5-15 [facility] Comment on above: Order Comment: 215.2 Performed By: #### L [id number] #### [facility] [address] [place], [address] GFR/1.73 sq M.predicted among non-blacks MDRD (S/P/Bld) [Vol rate/Area] 58 mL/min/{1.73_m2} Low >60 [facility] Comment on above: Order Comment: 215.2 Result Comment: Non- GFR Calc Performed By: #### L [id number] #### [facility] [address] [place], [address] Globulin (S) [Mass/Vol] 3.5 g/dL Normal 2.2-4.2 [facility] Comment on above: Order Comment: 215.2 Performed By: #### L [id number] #### [facility] [address] [place], [address] Glucose [Mass/Vol] 128 mg/dL High 74-106 [facility] Comment on above: Order Comment: 215.2 Result Comment: Fast ing Glucose result greater than or equal to 126 mg/dL suggests DIABETES MELLITUS per A.D.A. criteria. Performed By: #### L [id number] #### [facility] [address] [place], [address] Potassium [Moles/Vol] 3.9 mmol/L Normal 3.5-5.1 [facility] Comment on above: Order Comment: 215.2 Performed By: #### L [id number] #### [facility] [address] [place], [address] Sodium [Moles/Vol] 140 mmol/L Normal 136-145 [facility] Comment on above: Order Comment: 215.2 Performed By: #### L [id number] #### [facility] [address] [place], [address] T PROT 7.0 g/dL Normal 6.4-8.2 [facility] Comment on above: Order Comment: 215.2 Performed By: #### L [id number] #### [facility] [address] [place], [address] Urea nitrogen [Mass/Vol] 27 mg/dL High 7-18 [facility] Comment on above: Order Comment: 215.2 Performed By: #### L [id number] #### [facility] [address] [place], [address] Epithelial cells.squamous LM Ql (Urine sed)Ordered By: Walter Becker on 08-04-2024 Epithelial cells.squamous LM.HPF (Urine sed) [#/Area] 0 /[HPF] 0-5 [facility] Erythrocyte distribution wid th (RBC) [Ratio]Ordered By: Walter Becker on 08-04-2024 Erythrocyte distribution width (RBC) [Entitic vol] 41.8 fL 35.1-43.9 [facility] Erythrocyte distribution wid th ratioOrdered By: Walter Becker on 08-04-2024 Erythrocyte distribution width (RBC) [Ratio] 13.0 % 11.6-14.6 [facility] Estimated glomerular filtrat ion rate (GFR) AmericanOrdered By: Walter Becker on 08-04-2024 Estimated GFR (MDRD) Amer 70 mL/min >60 [facility] Comment on above: GFR Calc Glomerular filtration rate ( GFR) estimationOrdered By: Walter Becker on 08-04-2024 Estimated GFR (MDRD) Non-Af Amer 58 mL/min Low >60 [facility] Comment on above: Non- GFR Calc Glucose Ql (U)Ordered By: Horner on 08-04-2024 Urine Glucose (UA) Normal mg/dl Normal [facility] Glucose measurementOrdered B y: Walter Becker on 08-04-2024 Glucose [Mass/Vol] 128 mg/dL High 74-106 [facility] Comment on above: Fasting Glucose resu lt greater than or equal to 126 mg/dL suggests DIABETES MELLITUS per A.D.A. criteria. Hematocrit Auto (Bld) [Volum e fraction]Ordered By: Walter Becker on 08-04-2024 Hematocrit (Bld) [Volume fraction] 41.3 % 40-54 [facility] Hemoglobin measurementOrdere d By: Walter Becker on 08-04-2024 Hemoglobin (Bld) [Mass/Vol] 12.9 g/dL Low 13.0-16. 5 [facility] Ketones Test strip Ql (U)Ord ered By: Walter Becker on 08-04-2024 Ketones Ql (U) Negative Negative [facility] - Chemistry and C hemistry - challengeOrdered By: Walter Becker on 08-04-2024 AST [Catalytic activity/Vol] 12 U/L Low 15-37 [facility] MCV (mean corpuscular volume ) determinationOrdered By: Walter Becker on 08-04-2024 MCV (RBC) [Entitic vol] 87.3 fL 80-94 [facility] Mean corpuscular hemoglobin (MCH) determinationOrdered By: Walter Becker on 08-04-2024 MCH (RBC) [Entitic mass] 27.3 pg 27.0-32.0 [facility] Mean corpuscular hemoglobin concentration (MCHC) determinationOrdered By: Walter Becker on 08-04-2024 MCHC (RBC) [Mass/Vol] 31.2 g/dL Low 32-36 [facility] Mean platelet volume determi nationOrdered By: Walter Becker on 08-04-2024 Platelet mean volume (Bld) [Entitic vol] 9.3 fL 6.2-12.0 [facility] Microscopic analysis of urin e for red blood cells (RBC)Ordered By: Walter Becker on 08-04-2024 Urine RBC 0 SEEN /hpf 0-5 [facility] Mucus LM Ql (Urine sed)Order ed By: Walter Becker on 08-04-2024 Mucus Ql (Urine sed) 0 SEEN /hpf [facility] Nitrite Test strip Ql (U)Ord ered By: Walter Becker on 08-04-2024 Nitrite Ql (U) Negative Negative [facility] Platelet countOrdered By: Horner on 08-04-2024 Platelets (Bld) [#/Vol] 295 10*3/uL 150-450 [facility] Potassium measurementOrdered By: Walter Becker on 08-04-2024 Potassium [Moles/Vol] 3.9 mmol/L 3.5-5.1 [facility] Protein Test strip Ql (U)Ord ered By: Walter Becker on 08-04-2024 Protein Ql (U) Negative Negative [facility] RBC Auto (Bld) [#/Vol]Ordere d By: Walter Becker on 08-04-2024 RBC (Bld) [#/Vol] 4.73 10*6/uL 4.6-6.2 [facility] Serum anion gap measurementO rdered By: Walter Becker on 08-04-2024 Anion gap [Moles/Vol] 7 mmol/L 5-15 [facility] Serum globulin measurementOr dered By: Walter Becker on 08-04-2024 Globulin (S) [Mass/Vol] 3.5 g/dL 2.2-4.2 [facility] Serum or plasma alanine davis otransferase (ALT) measurementOrdered By: Walter Becker on 08-04-2024 ALT [Catalytic activity/Vol] 19 U/L 16-61 [facility] Serum or plasma albumin antoine urement (mass/volume)Ordered By: Walter Becker on 08-04-2024 Albumin [Mass/Vol] 3.5 g/dL 3.2-5.0 [facility] Serum or plasma alkaline marilin sphatase measurementOrdered By: Walter Beckre on 08-04-2024 ALP [Catalytic activity/Vol] 125 U/L High 45-117 [facility] Serum or plasma calcium antoine urement (mass/volume)Ordered By: Walter Becker on 08-04-2024 Calcium [Mass/Vol] 9.7 mg/dL 8.5-10.1 [facility] Serum or plasma creatinine m easurement (mass/volume)Ordered By: Walter Becker on 08-04-2024 Creatinine [Mass/Vol] 1.28 mg/dL 0.70-1.30 [facility] Comment on above: The validity of the calculated GFR & GFRAA in patients over 70 years has not been determined. Clinical correlation is essential. Serum or plasma urea nitroge n measurement (mass/volume)Ordered By: Walter Becker on 08-04-2024 Urea nitrogen [Mass/Vol] 27 mg/dL High 7-18 [facility] Sodium levelOrdered By: Walter Becker on 08-04-2024 Sodium [Moles/Vol] 140 mmol/L 136-145 [facility] Total proteinOrdered By: Crystal Becker on 08-04-2024 Protein [Mass/Vol] 7.0 g/dL 6.4-8.2 [facility] Urinalysis, Completeon 08-04 WBC 0-5 SEEN Normal 0-5 [facility] Comment on above: Order Comment: SCCAT HETER SPECIMEN Performed By: #### L [id number] #### [facility] [address] [place], [address] BACTERIA 0 SEEN Normal None Seen [facility] Comment on above: Order Comment: SCCAT HETER SPECIMEN Performed By: #### L [id number] #### [facility] [address] [place], [address] EPI,SQUAMOUS 0 SEEN Normal 0-5 [facility] Comment on above: Order Comment: SCCAT HETER SPECIMEN Performed By: #### L [id number] #### [facility] [address] [place], [address] Mucus Ql (Urine sed) 0 SEEN Normal [facility] Comment on above: Order Comment: SCCAT HETER SPECIMEN Performed By: #### L [id number] #### [facility] [address] [place], [address] RBC 0 SEEN Normal 0-5 [facility] Comment on above: Order Comment: SCCAT HETER SPECIMEN Performed By: #### L [id number] #### [facility] [address] [place], [address] Urine blood detectionOrdered By: Walter Becker on 08-04-2024 Urine Occult Blood Negative Negative [facility] Urine clarityOrdered By: Crystal Becker on 08-04-2024 Clarity (U) Clear Clear [facility] Urine color determinationOrd ered By: Walter Becker on 08-04-2024 Color (U) Yellow Yellow [facility] Urine cultureOrdered By: Crystal Becker on 08-04-2024 Bacteria identified Cx Nom (U) Culture exhibits no growth. [facility] Urine leukocyte esterase det ection by dipstickOrdered By: Walter Becker on 08-04-2024 Leukocyte esterase Test strip Ql (U) Negative Negative [facility] Urine pHOrdered By: Walter floyd on 08-04-2024 pH (U) 6.0 [pH] 5.0 - 8.0 [facility] Urine sediment bacteria coun t by microscopy (number/high power field)Ordered By: Walter Becker on 08-04-2024 Bacteria LM.HPF (Urine sed) [#/Area] 0 /[HPF] None Seen [facility] Urine specific gravity measu rementOrdered By: Walter Becker on 08-04-2024 Specific gravity (U) [Rel density] 1.010 1.002-1.03 0 [facility] Urobilinogen Ql (U)Ordered B y: Walter Becker on 08-04-2024 Urine Urobilinogen Normal mg/dl Normal [facility] White blood cell (WBC) count Ordered By: Walter Becker on 08-04-2024 WBC (Bld) [#/Vol] 9.3 10*3/uL 4.4-11.0 [facility] White blood cell countOrdere d By: Walter Becker on 08-04-2024 Urine WBC 0-5 SEEN /hpf 0-5 [facility] Albumin to globulin ratioOrd ered By: Walter Becker on 07-27-2024 Albumin/Globulin [Mass ratio] 1.1 {ratio} 0.9-2.4 [facility] Bilirubin, totalOrdered By: Walter Becker on 07-27-2024 Bilirubin [Mass/Vol] 0.60 mg/dL 0.20-1.00 [facility] Comment on above: For patients on eltr ombopag therapy, use of Dimension [place] TBIL is not recommended. Blood urea nitrogen (BUN)/cr eatinine ratioOrdered By: Walter Becker on 07-27-2024 Urea nitrogen/Creatinine [Mass ratio] 20.0 mg/mg 10-20 [facility] CBC-Complete Blood Cnt No Di ffon 07-27-2024 Erythrocyte distribution width (RBC) [Ratio] 13.5 % Normal 11.6-14.6 [facility] Comment on above: Order Comment: 215.2 Performed By: #### L [id number], L501.9985, L100.0500 #### [facility] [address] [place], [place], [id number] Hematocrit (Bld) [Volume fraction] 35.7 % Low 40-54 [facility] Comment on above: Order Comment: 215.2 Performed By: #### L [id number], [id number], [id number] #### [facility] [address] [place], [address] Hemoglobin (Bld) [Mass/Vol] 11.5 g/dL Low 13.0-16. 5 [facility] Comment on above: Order Comment: 215.2 Performed By: #### L [id number], [id number], [id number] #### [facility] [address] [place], [address] MCH (RBC) [Entitic mass] 28.2 pg Normal 27.0-32.0 [facility] Comment on above: Order Comment: 215.2 Performed By: #### L [id number], [id number], [id number] #### [facility] [address] [place], [address] MCHC (RBC) [Mass/Vol] 32.2 g/dL Normal 32-36 [facility] Comment on above: Order Comment: 215.2 Performed By: #### L [id number], [id number], [id number] #### [facility] [address] [place], [address] MCV (RBC) [Entitic vol] 87.5 fL Normal 80-94 [facility] Comment on above: Order Comment: 215.2 Performed By: #### L [id number], [id number], [id number] #### [facility] [address] [place], [address] Platelet mean volume (Bld) [Entitic vol] 9.6 fL Normal 6.2-12.0 [facility] Comment on above: Order Comment: 215.2 Performed By: #### L [id number], [id number], [id number] #### [facility] [address] [place], [address] Platelets (Bld) [#/Vol] 192 10*3/uL Normal 150-450 [facility] Comment on above: Order Comment: 215.2 Performed By: #### L [id number], [id number], [id number] #### [facility] [address] [place], [address] RBC (Bld) [#/Vol] 4.08 10*6/uL Low 4.6-6.2 [facility] Comment on above: Order Comment: 215.2 Performed By: #### L [id number], [id number], [id number] #### [facility] [address] [place], [address] RDW SD 43.1 fl Normal 35.1-43.9 [facility] Comment on above: Order Comment: 215.2 Performed By: #### L [id number], [id number], [id number] #### [facility] [address] [place], [address] WBC (Bld) [#/Vol] 7.2 10*3/uL Normal 4.4-11.0 [facility] Comment on above: Order Comment: 215.2 Performed By: #### L [id number], [id number], [id number] #### [facility] [address] [place], [address] Carbon dioxide measurementOr dered By: Walter Becker on 07-27-2024 CO2 [Moles/Vol] 29.0 mmol/L 21.0-32.0 [facility] Chloride measurementOrdered By: Walter Becker on 07-27-2024 Chloride [Moles/Vol] 105 mmol/L 98-107 [facility] Comprehensive Metabolic Prof ilon 07-27-2024 Albumin [Mass/Vol] 3.1 g/dL Low 3.2-5.0 [facility] Comment on above: Order Comment: 215.2 Performed By: #### L [id number], [id number], [id number] #### [facility] [address] [place], [address] Albumin/Globulin [Mass ratio] 1.1 {ratio} Normal 0.9-2.4 [facility] Comment on above: Order Comment: 215.2 Performed By: #### L [id number], [id number], [id number] #### [facility] [address] [place], [address] ALK P 124 U/L High 45-117 [facility] Comment on above: Order Comment: 215.2 Performed By: #### L [id number], [id number], [id number] #### [facility] [address] [place], [address] ALT [Catalytic activity/Vol] 20 U/L Normal 16-61 [facility] Comment on above: Order Comment: 215.2 Performed By: #### L [id number], [id number], [id number] #### [facility] [address] [place], [address] AST [Catalytic activity/Vol] 10 U/L Low 15-37 [facility] Comment on above: Order Comment: 215.2 Performed By: #### L [id number], [id number], [id number] #### [facility] [address] [place], [address] Bilirubin [Mass/Vol] 0.60 mg/dL Normal 0.20-1.00 [facility] Comment on above: Order Comment: 215.2 Result Comment: For patients on eltrombopag therapy, use of Dimension [place] TBIL is not recommended. Performed By: #### L [id number], [id number], L100.0500 #### [facility] [address] [place], [address] BUN/CRE 20.0 RATIO Normal 10-20 [facility] Comment on above: Order Comment: 215.2 Performed By: #### L [id number], [id number], [id number] #### [facility] [address] [place], [address] CA,Total 8.9 mg/dL Normal 8.5-10.1 [facility] Comment on above: Order Comment: 215.2 Performed By: #### L [id number], [id number], [id number] #### [facility] [address] [place], [address] Chloride [Moles/Vol] 105 mmol/L Normal 98-107 [facility] Comment on above: Order Comment: 215.2 Performed By: #### L [id number], [id number], [id number] #### [facility] [address] [place], [address] CO2 [Moles/Vol] 29.0 mmol/L Normal 21.0-32.0 [facility] Comment on above: Order Comment: 215.2 Performed By: #### L [id number], [id number], [id number] #### [facility] [address] [place], [address] Creatinine [Mass/Vol] 1.10 mg/dL Normal 0.70-1.30 [facility] Comment on above: Order Comment: 215.2 Result Comment: The validity of the calculated GFR GFRAA in patients over 70 years has not been determined. Clinical correlation is essential. Performed By: #### L [id number], [id number], L100.0500 #### [facility] [address] [place], [address] EST GFR - AA 84 mL/min Normal >60 [facility] Comment on above: Order Comment: 215.2 Result Comment: Afri can [place] GFR Calc Performed By: #### L [id number], [id number], L100.0500 #### [facility] [address] [place], [address] GAP 4 Low 5-15 [facility] Comment on above: Order Comment: 215.2 Performed By: #### L 500.4050, [id number], L100.0500 #### [facility] [address] [place], [address] GFR/1.73 sq M.predicted among non-blacks MDRD (S/P/Bld) [Vol rate/Area] 69 mL/min/{1.73_m2} Normal >60 [facility] Comment on above: Order Comment: 215.2 Result Comment: Non- GFR Calc Performed By: #### L 500.4050, [id number], L100.0500 #### [facility] [address] [place], [address] Globulin (S) [Mass/Vol] 2.9 g/dL Normal 2.2-4.2 [facility] Comment on above: Order Comment: 215.2 Performed By: #### L 500.4050, [id number], L100.0500 #### [facility] [address] [place], [address] Glucose [Mass/Vol] 127 mg/dL High 74-106 [facility] Comment on above: Order Comment: 215.2 Result Comment: Fast ing Glucose result greater than or equal to 126 mg/dL suggests DIABETES MELLITUS per A.D.A. criteria. Performed By: #### L 500.4050, L501.9985, L100.0500 #### [facility] [address] [place], [address] Potassium [Moles/Vol] 4.1 mmol/L Normal 3.5-5.1 [facility] Comment on above: Order Comment: 215.2 Performed By: #### L 500.4050, [id number], L100.0500 #### [facility] [address] [place], [address] Sodium [Moles/Vol] 137 mmol/L Normal 136-145 [facility] Comment on above: Order Comment: 215.2 Performed By: #### L 500.4050, [id number], L100.0500 #### [facility] [address] [place], [address] T PROT 6.0 g/dL Low 6.4-8.2 [facility] Comment on above: Order Comment: 215.2 Performed By: #### L [id number], [id number], L100.0500 #### [facility] [address] [place], [address] Urea nitrogen [Mass/Vol] 22 mg/dL High 7-18 [facility] Comment on above: Order Comment: 215.2 Performed By: #### L [id number], [id number], L100.0500 #### [facility] [address] [place], [address] Erythrocyte distribution wid th (RBC) [Ratio]Ordered By: Walter Becker on 07-27-2024 Erythrocyte distribution width (RBC) [Entitic vol] 43.1 fL 35.1-43.9 [facility] Erythrocyte distribution wid th ratioOrdered By: Walter Becker on 07-27-2024 Erythrocyte distribution width (RBC) [Ratio] 13.5 % 11.6-14.6 [facility] Estimated glomerular filtrat ion rate (GFR) AmericanOrdered By: Walter Becker on 07-27-2024 Estimated GFR (MDRD) Amer 84 mL/min >60 [facility] Comment on above: GFR Calc Glomerular filtration rate ( GFR) estimationOrdered By: Walter Becker on 07-27-2024 Estimated GFR (MDRD) Non-Af Amer 69 mL/min >60 [facility] Comment on above: Non- GFR Calc Glucose measurementOrdered B y: Walter Becker on 07-27-2024 Glucose [Mass/Vol] 127 mg/dL High 74-106 [facility] Comment on above: Fasting Glucose resu lt greater than or equal to 126 mg/dL suggests DIABETES MELLITUS per A.D.A. criteria. Hematocrit Auto (Bld) [Volum e fraction]Ordered By: Walter Becker on 07-27-2024 Hematocrit (Bld) [Volume fraction] 35.7 % Low 40-54 [facility] Hemoglobin measurementOrdere d By: Walter Becker on 07-27-2024 Hemoglobin (Bld) [Mass/Vol] 11.5 g/dL Low 13.0-16. 5 [facility] - Chemistry and C hemistry - challengeOrdered By: Walter Becker on 07-27-2024 AST [Catalytic activity/Vol] 10 U/L Low 15-37 [facility] MCV (mean corpuscular volume ) determinationOrdered By: Walter Becker on 07-27-2024 MCV (RBC) [Entitic vol] 87.5 fL 80-94 [facility] Mean corpuscular hemoglobin (MCH) determinationOrdered By: Walter Becker on 07-27-2024 MCH (RBC) [Entitic mass] 28.2 pg 27.0-32.0 [facility] Mean corpuscular hemoglobin concentration (MCHC) determinationOrdered By: Walter Becker on 07-27-2024 MCHC (RBC) [Mass/Vol] 32.2 g/dL 32-36 [facility] Mean platelet volume determi nationOrdered By: Walter Becker on 07-27-2024 Platelet mean volume (Bld) [Entitic vol] 9.6 fL 6.2-12.0 [facility] Platelet countOrdered By: Horner on 07-27-2024 Platelets (Bld) [#/Vol] 192 10*3/uL 150-450 [facility] Potassium measurementOrdered By: Walter Becker on 07-27-2024 Potassium [Moles/Vol] 4.1 mmol/L 3.5-5.1 [facility] RBC Auto (Bld) [#/Vol]Ordere d By: Walter Becker on 07-27-2024 RBC (Bld) [#/Vol] 4.08 10*6/uL Low 4.6-6.2 [facility] Serum anion gap measurementO rdered By: Walter Becker on 07-27-2024 Anion gap [Moles/Vol] 4 mmol/L Low 5-15 [facility] Serum globulin measurementOr dered By: Walter Becker on 07-27-2024 Globulin (S) [Mass/Vol] 2.9 g/dL 2.2-4.2 [facility] Serum or plasma alanine davis otransferase (ALT) measurementOrdered By: Walter Becker on 07-27-2024 ALT [Catalytic activity/Vol] 20 U/L 16-61 [facility] Serum or plasma albumin antoine urement (mass/volume)Ordered By: Walter Becker on 07-27-2024 Albumin [Mass/Vol] 3.1 g/dL Low 3.2-5.0 [facility] Serum or plasma alkaline marilin sphatase measurementOrdered By: Walter Becker on 07-27-2024 ALP [Catalytic activity/Vol] 124 U/L High 45-117 [facility] Serum or plasma calcium antoine urement (mass/volume)Ordered By: Walter Becker on 07-27-2024 Calcium [Mass/Vol] 8.9 mg/dL 8.5-10.1 [facility] Serum or plasma creatinine m easurement (mass/volume)Ordered By: Walter Becker on 07-27-2024 Creatinine [Mass/Vol] 1.10 mg/dL 0.70-1.30 [facility] Comment on above: The validity of the calculated GFR & GFRAA in patients over 70 years has not been determined. Clinical correlation is essential. Serum or plasma urea nitroge n measurement (mass/volume)Ordered By: Walter Becker on 07-27-2024 Urea nitrogen [Mass/Vol] 22 mg/dL High 7-18 [facility] Sodium levelOrdered By: Walter Becker on 07-27-2024 Sodium [Moles/Vol] 137 mmol/L 136-145 [facility] Total proteinOrdered By: Crystal Becker on 07-27-2024 Protein [Mass/Vol] 6.0 g/dL Low 6.4-8.2 [facility] White blood cell (WBC) count Ordered By: Walter Becker on 07-27-2024 WBC (Bld) [#/Vol] 7.2 10*3/uL 4.4-11.0 [facility] Albumin to globulin ratioOrd ered By: Walter Becker on 07-07-2024 Albumin/Globulin [Mass ratio] 1.0 {ratio} 0.9-2.4 [facility] Bilirubin, totalOrdered By: Walter Becker on 07-07-2024 Bilirubin [Mass/Vol] 0.40 mg/dL 0.20-1.00 [facility] Comment on above: For patients on eltr ombopag therapy, use of Dimension [place] TBIL is not recommended. Blood urea nitrogen (BUN)/cr eatinine ratioOrdered By: Walter Becker on 07-07-2024 Urea nitrogen/Creatinine [Mass ratio] 23.6 mg/mg High 10-20 [facility] CBC-Complete Blood Cnt No Di ffon 07-07-2024 Erythrocyte distribution width (RBC) [Ratio] 13.3 % Normal 11.6-14.6 [facility] Comment on above: Order Comment: 215.2 Performed By: #### L 300.3900 #### [facility] [address] [place], [address] Hematocrit (Bld) [Volume fraction] 38.1 % Low 40-54 [facility] Comment on above: Order Comment: 215.2 Performed By: #### L [id number] #### [facility] [address] [place], [address] Hemoglobin (Bld) [Mass/Vol] 12.3 g/dL Low 13.0-16. 5 [facility] Comment on above: Order Comment: 215.2 Performed By: #### L [id number] #### [facility] [address] [place], [address] MCH (RBC) [Entitic mass] 28.3 pg Normal 27.0-32.0 [facility] Comment on above: Order Comment: 215.2 Performed By: #### L [id number] #### [facility] [address] [place], [address] MCHC (RBC) [Mass/Vol] 32.3 g/dL Normal 32-36 [facility] Comment on above: Order Comment: 215.2 Performed By: #### L [id number] #### [facility] [address] [place], [address] MCV (RBC) [Entitic vol] 87.6 fL Normal 80-94 [facility] Comment on above: Order Comment: 215.2 Performed By: #### L 300.3900 #### [facility] [address] [place], [address] Platelet mean volume (Bld) [Entitic vol] 9.1 fL Normal 6.2-12.0 [facility] Comment on above: Order Comment: 215.2 Performed By: #### L 300.3900 #### [facility] [address] [place], [address] Platelets (Bld) [#/Vol] 211 10*3/uL Normal 150-450 [facility] Comment on above: Order Comment: 215.2 Performed By: #### L 300.3900 #### [facility] [address] [place], [address] RBC (Bld) [#/Vol] 4.35 10*6/uL Low 4.6-6.2 [facility] Comment on above: Order Comment: 215.2 Performed By: #### L 300.3900 #### [facility] [address] [place], [address] RDW SD 42.5 fl Normal 35.1-43.9 [facility] Comment on above: Order Comment: 215.2 Performed By: #### L 300.3900 #### [facility] [address] [place], [address] WBC (Bld) [#/Vol] 7.6 10*3/uL Normal 4.4-11.0 [facility] Comment on above: Order Comment: 215.2 Performed By: #### L 300.3900 #### [facility] [address] [place], [address] Carbon dioxide measurementOr dered By: Walter Becker on 07-07-2024 CO2 [Moles/Vol] 32.0 mmol/L 21.0-32.0 [facility] Chloride measurementOrdered By: Walter Becker on 07-07-2024 Chloride [Moles/Vol] 107 mmol/L 98-107 [facility] Comprehensive Metabolic Prof ilon 07-07-2024 Albumin [Mass/Vol] 2.9 g/dL Low 3.2-5.0 [facility] Comment on above: Order Comment: 215.2 Performed By: #### L 300.3900 #### [facility] [address] [place], [address] Albumin/Globulin [Mass ratio] 1.0 {ratio} Normal 0.9-2.4 [facility] Comment on above: Order Comment: 215.2 Performed By: #### L 300.3900 #### [facility] [address] [place], [address] ALK P 121 U/L High 45-117 [facility] Comment on above: Order Comment: 215.2 Performed By: #### L 300.3900 #### [facility] [address] [place], [address] ALT [Catalytic activity/Vol] 20 U/L Normal 16-61 [facility] Comment on above: Order Comment: 215.2 Performed By: #### L 300.3900 #### [facility] [address] [place], [address] AST [Catalytic activity/Vol] 10 U/L Low 15-37 [facility] Comment on above: Order Comment: 215.2 Performed By: #### L 300.3900 #### [facility] [address] [place], [address] Bilirubin [Mass/Vol] 0.40 mg/dL Normal 0.20-1.00 [facility] Comment on above: Order Comment: 215.2 Result Comment: For patients on eltrombopag therapy, use of Dimension [place] TBIL is not recommended. Performed By: #### L 300.3900 #### [facility] [address] [place], [address] BUN/CRE 23.6 RATIO High 10-20 [facility] Comment on above: Order Comment: 215.2 Performed By: #### L 300.3900 #### [facility] [address] [place], [address] CA,Total 9.1 mg/dL Normal 8.5-10.1 [facility] Comment on above: Order Comment: 215.2 Performed By: #### L 300.3900 #### [facility] [address] [place], [address] Chloride [Moles/Vol] 107 mmol/L Normal 98-107 [facility] Comment on above: Order Comment: 215.2 Performed By: #### L 300.3900 #### [facility] [address] [place], [address] CO2 [Moles/Vol] 32.0 mmol/L Normal 21.0-32.0 [facility] Comment on above: Order Comment: 215.2 Performed By: #### L 300.3900 #### [facility] [address] [place], [address] Creatinine [Mass/Vol] 1.06 mg/dL Normal 0.70-1.30 [facility] Comment on above: Order Comment: 215.2 Result Comment: The validity of the calculated GFR GFRAA in patients over 70 years has not been determined. Clinical correlation is essential. Performed By: #### L 300.3900 #### [facility] [address] [place], [address] EST GFR - AA 87 mL/min Normal >60 [facility] Comment on above: Order Comment: 215.2 Result Comment: Afri can [place] GFR Calc Performed By: #### L 300.3900 #### [facility] [address] [place], [address] GAP 3 Low 5-15 [facility] Comment on above: Order Comment: 215.2 Performed By: #### L 300.3900 #### [facility] [address] [place], [address] GFR/1.73 sq M.predicted among non-blacks MDRD (S/P/Bld) [Vol rate/Area] 72 mL/min/{1.73_m2} Normal >60 [facility] Comment on above: Order Comment: 215.2 Result Comment: Non- GFR Calc Performed By: #### L 300.3900 #### [facility] [address] [place], [address] Globulin (S) [Mass/Vol] 3.0 g/dL Normal 2.2-4.2 [facility] Comment on above: Order Comment: 215.2 Performed By: #### L 300.3900 #### [facility] [address] [place], [address] Glucose [Mass/Vol] 130 mg/dL High 74-106 [facility] Comment on above: Order Comment: 215.2 Result Comment: Fast ing Glucose result greater than or equal to 126 mg/dL suggests DIABETES MELLITUS per A.D.A. criteria. Performed By: #### L 300.3900 #### [facility] [address] [place], [address] Potassium [Moles/Vol] 3.9 mmol/L Normal 3.5-5.1 [facility] Comment on above: Order Comment: 215.2 Performed By: #### L 300.3900 #### [facility] [address] [place], [address] Sodium [Moles/Vol] 141 mmol/L Normal 136-145 [facility] Comment on above: Order Comment: 215.2 Performed By: #### L 300.3900 #### [facility] [address] [place], [address] T PROT 5.9 g/dL Low 6.4-8.2 [facility] Comment on above: Order Comment: 215.2 Performed By: #### L 300.3900 #### [facility] [address] [place], [address] Urea nitrogen [Mass/Vol] 25 mg/dL High 7-18 [facility] Comment on above: Order Comment: 215.2 Performed By: #### L 300.3900 #### [facility] [address] [place], [address] Erythrocyte distribution wid th (RBC) [Ratio]Ordered By: Walter Becker on 07-07-2024 Erythrocyte distribution width (RBC) [Entitic vol] 42.5 fL 35.1-43.9 [facility] Erythrocyte distribution wid th ratioOrdered By: Walter Becker on 07-07-2024 Erythrocyte distribution width (RBC) [Ratio] 13.3 % 11.6-14.6 [facility] Estimated glomerular filtrat ion rate (GFR) AmericanOrdered By: Walter Becker on 07-07-2024 Estimated GFR (MDRD) Amer 87 mL/min >60 [facility] Comment on above: GFR Calc Glomerular filtration rate ( GFR) estimationOrdered By: Walter Becker on 07-07-2024 Estimated GFR (MDRD) Non-Af Amer 72 mL/min >60 [facility] Comment on above: Non- GFR Calc Glucose measurementOrdered B y: Walter Becker on 07-07-2024 Glucose [Mass/Vol] 130 mg/dL High 74-106 [facility] Comment on above: Fasting Glucose resu lt greater than or equal to 126 mg/dL suggests DIABETES MELLITUS per A.D.A. criteria. Hematocrit Auto (Bld) [Volum e fraction]Ordered By: Walter Becker on 07-07-2024 Hematocrit (Bld) [Volume fraction] 38.1 % Low 40-54 [facility] Hemoglobin A1con 07-07-2024 HbA1c (Bld) [Mass fraction] 6.4 % High 3.8-5.6 [facility] Comment on above: Order Comment: 215.2 Result Comment: Norm al < 5.7 % Prediabetic 5.7 - 6.4 % Diabetic >or= 6.5 % Please note range changes. Performed By: #### L [id number] #### [facility] [address] [place] [address], [address] Hemoglobin A1c percentageOrd ered By: Walter Becker on 07-07-2024 HbA1c (Bld) [Mass fraction] 6.4 % High 3.8-5.6 [facility] Comment on above: Normal < 5.7 % Predi abetic 5.7 - 6.4 % Diabetic >or= 6.5 % Please note range changes. Hemoglobin measurementOrdere d By: Walter Becker on 07-07-2024 Hemoglobin (Bld) [Mass/Vol] 12.3 g/dL Low 13.0-16. 5 [facility] - Chemistry and C hemistry - challengeOrdered By: Walter Becker on 07-07-2024 AST [Catalytic activity/Vol] 10 U/L Low 15-37 [facility] MCV (mean corpuscular volume ) determinationOrdered By: Walter Becker on 07-07-2024 MCV (RBC) [Entitic vol] 87.6 fL 80-94 [facility] Mean corpuscular hemoglobin (MCH) determinationOrdered By: Walter Becker on 07-07-2024 MCH (RBC) [Entitic mass] 28.3 pg 27.0-32.0 [facility] Mean corpuscular hemoglobin concentration (MCHC) determinationOrdered By: Walter Becker on 07-07-2024 MCHC (RBC) [Mass/Vol] 32.3 g/dL 32-36 [facility] Mean platelet volume determi nationOrdered By: Walter Becker on 07-07-2024 Platelet mean volume (Bld) [Entitic vol] 9.1 fL 6.2-12.0 [facility] Platelet countOrdered By: Horner on 07-07-2024 Platelets (Bld) [#/Vol] 211 10*3/uL 150-450 [facility] Potassium measurementOrdered By: Walter Becker on 07-07-2024 Potassium [Moles/Vol] 3.9 mmol/L 3.5-5.1 [facility] RBC Auto (Bld) [#/Vol]Ordere d By: Walter Becker on 07-07-2024 RBC (Bld) [#/Vol] 4.35 10*6/uL Low 4.6-6.2 [facility] Serum anion gap measurementO rdered By: Walter Becker on 07-07-2024 Anion gap [Moles/Vol] 3 mmol/L Low 5-15 [facility] Serum globulin measurementOr dered By: Walter Becker on 07-07-2024 Globulin (S) [Mass/Vol] 3.0 g/dL 2.2-4.2 [facility] Serum or plasma alanine davis otransferase (ALT) measurementOrdered By: Walter Becker on 07-07-2024 ALT [Catalytic activity/Vol] 20 U/L 16-61 [facility] Serum or plasma albumin antoine urement (mass/volume)Ordered By: Walter Becker on 07-07-2024 Albumin [Mass/Vol] 2.9 g/dL Low 3.2-5.0 [facility] Serum or plasma alkaline marilin sphatase measurementOrdered By: Walter Becker on 07-07-2024 ALP [Catalytic activity/Vol] 121 U/L High 45-117 [facility] Serum or plasma calcium antoine urement (mass/volume)Ordered By: Walter Becker on 07-07-2024 Calcium [Mass/Vol] 9.1 mg/dL 8.5-10.1 [facility] Serum or plasma creatinine m easurement (mass/volume)Ordered By: Walter Becker on 07-07-2024 Creatinine [Mass/Vol] 1.06 mg/dL 0.70-1.30 [facility] Comment on above: The validity of the calculated GFR & GFRAA in patients over 70 years has not been determined. Clinical correlation is essential. Serum or plasma urea nitroge n measurement (mass/volume)Ordered By: Walter Becker on 07-07-2024 Urea nitrogen [Mass/Vol] 25 mg/dL High -18 [facility] Sodium levelOrdered By: Walter Becker on 07-07-2024 Sodium [Moles/Vol] 141 mmol/L 136-145 [facility] Total proteinOrdered By: Crystal Becker on 07-07-2024 Protein [Mass/Vol] 5.9 g/dL Low 6.4-8.2 [facility] White blood cell (WBC) count Ordered By: Walter Becker on 07-07-2024 WBC (Bld) [#/Vol] 7.6 10*3/uL 4.4-11.0 [facility] Vitamin D,25 Hydroxyon 07-02 Vitamin D 25-OH 58.5 ng/mL Normal [facility] Comment on above: Order Comment: 215.2 Result Comment: Laure min D 25(OH) Status Range Deficiency <20 ng/mL (50nmol/L) Insufficiency 20 - 30 ng/mL (50 - 75 nmol/L) Sufficiency 30 - 100 ng/mL (75 - 250 nmol/L) Toxicity >100 ng/mL (>250 nmol/L) Performed By: #### L 506.1000 #### [facility] [place], [place], [id number] DOrdered By: Danny Becker on 07-01-2024 Vitamin D 25-Hydroxy 58.5 ng/mL [facility] Comment on above: Vitamin D 25(OH) Sta tus Range Deficiency <20 ng/mL (50nmol/L) Insufficiency 20 - 30 ng/mL (50 - 75 nmol/L) Sufficiency 30 - 100 ng/mL (75 - 250 nmol/L) Toxicity >100 ng/mL (>250 nmol/L) Bedside Glucoseon 06-01-2024 FINGERSTICK GLU 183 mg/dL High 74-106 [facility] Comment on above: Result Comment: JAZ WOODROSETTE OF PATIENT CARE PER NURSING PROTOCOL Performed By: #### L 500.4050, L501.9985, L100.0500 #### [facility] [address] [place], [place], [address] Fluor Guidance for Spine Inj on 06-01-2024 Fluor Guidance for Spine Inj [facility] Imaging Services [address] [place], [place] [id number] Fluor Guidance for Spine Inj MR#: [id number] Acct: [id number] Name: RICHARD ROY Rep #: [id number] : 1945 M 78 From: Ravindra hogue MD PCP: Dr. Luis Caldera MD Status: [facility] Study: Fluor Guidance for Spine Inj Date of Exam: Exam# [id number] Ordering Dr: Kee Merritt MD [id number] PROCEDURE: Caudal block. DATE OF EXAMINATION: June 01, 2024. INDICATION: Male, 78 years old. Chronic low back pain. FLUOROSCOPY TIME (if supplied): (2.6 seconds) minutes/seconds. 0.72 mGy. One image was submitted. RAD/Fluor Guidance for Spine Inj IMPRESSION: Intraoperative imaging provided for caudal block. Electronically Signed: Ravindra Sierra MD at 12:53 EST , CC: Dr. Luis Caldera MD; Dr. Kee Merritt MD M1 Armor Crewman: Signed Normal [facility] Operative Reporton 4 Operative Report [facility] Medical Records Department [address] [place] [address] Operative Report 06/01/24 1141 MR#: [id number] Acct: [id number] Name: RICHARD ROY Rep #: [id number] : 1945 78 From: Kee Merritt MD PCP: Dr. Luis Caldera MD Status:DEP [facility] Location: [facility] Operative Report (Standard) Operative Information Surgery/Procedure Performed: [...] 2 weeks for reevaluation. 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 Luis Caldera MD; Dr. Kee Merritt MD Signed Normal [facility] CBC-Complete Blood Cnt No Di ffon 04-14-2024 Erythrocyte distribution width (RBC) [Ratio] 14.6 % Normal 11.6-14.6 [facility] Comment on above: Order Comment: 215.2 Performed By: #### L 500.4050, L501.9985, L100.0500 #### [facility] [address] [place], [address] Hematocrit (Bld) [Volume fraction] 39.3 % Low 40-54 [facility] Comment on above: Order Comment: 215.2 Performed By: #### L 500.4050, L501.9985, L100.0500 #### [facility] [address] [place], [address] Hemoglobin (Bld) [Mass/Vol] 12.3 g/dL Low 13.0-16. 5 [facility] Comment on above: Order Comment: 215.2 Performed By: #### L 500.4050, L501.9985, L100.0500 #### [facility] [address] [place], [address] MCH (RBC) [Entitic mass] 27.3 pg Normal 27.0-32.0 [facility] Comment on above: Order Comment: 215.2 Performed By: #### L 500.4050, L501.9985, L100.0500 #### [facility] [address] [place], [address] MCHC (RBC) [Mass/Vol] 31.3 g/dL Low 32-36 [facility] Comment on above: Order Comment: 215.2 Performed By: #### L 500.4050, L501.9985, L100.0500 #### [facility] [address] [place], [address] MCV (RBC) [Entitic vol] 87.3 fL Normal 80-94 [facility] Comment on above: Order Comment: 215.2 Performed By: #### L 500.4050, L501.9985, L100.0500 #### [facility] [address] [place], [address] Platelet mean volume (Bld) [Entitic vol] 9.6 fL Normal 6.2-12.0 [facility] Comment on above: Order Comment: 215.2 Performed By: #### L 500.4050, L501.9985, L100.0500 #### [facility] [address] [place], [address] Platelets (Bld) [#/Vol] 224 10*3/uL Normal 150-450 [facility] Comment on above: Order Comment: 215.2 Performed By: #### L 500.4050, L501.9985, L100.0500 #### [facility] [address] [place], [address] RBC (Bld) [#/Vol] 4.50 10*6/uL Low 4.6-6.2 [facility] Comment on above: Order Comment: 215.2 Performed By: #### L 500.4050, L501.9985, L100.0500 #### [facility] [address] [place], [address] RDW SD 46.6 fl High 35.1-43.9 [facility] Comment on above: Order Comment: 215.2 Performed By: #### L 500.4050, L501.9985, L100.0500 #### [facility] [address] [place], [address] WBC (Bld) [#/Vol] 8.5 10*3/uL Normal 4.4-11.0 [facility] Comment on above: Order Comment: 215.2 Performed By: #### L 500.4050, L501.9985, L100.0500 #### [facility] [address] [place], [address] Comprehensive Metabolic Prof ilon 04-14-2024 Albumin [Mass/Vol] 3.1 g/dL Low 3.2-5.0 [facility] Comment on above: Order Comment: 215.2 Performed By: #### L 500.4050, L501.9985, L100.0500 #### [facility] [address] [place], [address] Albumin/Globulin [Mass ratio] 1.0 {ratio} Normal 0.9-2.4 [facility] Comment on above: Order Comment: 215.2 Performed By: #### L 500.4050, L501.9985, L100.0500 #### [facility] [address] [place], [address] ALK P 115 U/L Normal 45-117 [facility] Comment on above: Order Comment: 215.2 Performed By: #### L 500.4050, L501.9985, L100.0500 #### [facility] [address] [place], [address] ALT [Catalytic activity/Vol] 17 U/L Normal 16-61 [facility] Comment on above: Order Comment: 215.2 Performed By: #### L 500.4050, L501.9985, L100.0500 #### [facility] [address] [place], [address] AST [Catalytic activity/Vol] 5 U/L Low 15-37 [facility] Comment on above: Order Comment: 215.2 Performed By: #### L 500.4050, L501.9985, L100.0500 #### [facility] [address] [place], [address] Bilirubin [Mass/Vol] 0.60 mg/dL Normal 0.20-1.00 [facility] Comment on above: Order Comment: 215.2 Result Comment: For patients on eltrombopag therapy, use of Dimension [place] TBIL is not recommended. Performed By: #### L 500.4050, L501.9985, L100.0500 #### [facility] [address] [place], [address] BUN/CRE 21.2 RATIO High 10-20 [facility] Comment on above: Order Comment: 215.2 Performed By: #### L 500.4050, L501.9985, L100.0500 #### [facility] [address] [place], [address] CA,Total 9.6 mg/dL Normal 8.5-10.1 [facility] Comment on above: Order Comment: 215.2 Performed By: #### L 500.4050, L501.9985, L100.0500 #### [facility] [address] [place], [address] Chloride [Moles/Vol] 108 mmol/L High 98-107 [facility] Comment on above: Order Comment: 215.2 Performed By: #### L 500.4050, L501.9985, L100.0500 #### [facility] [address] [place], [address] CO2 [Moles/Vol] 29.0 mmol/L Normal 21.0-32.0 [facility] Comment on above: Order Comment: 215.2 Performed By: #### L 500.4050, L501.9985, L100.0500 #### [facility] [address] [place], [address] Creatinine [Mass/Vol] 1.13 mg/dL Normal 0.70-1.30 [facility] Comment on above: Order Comment: 215.2 Result Comment: The validity of the calculated GFR GFRAA in patients over 70 years has not been determined. Clinical correlation is essential. Performed By: #### L 500.4050, L501.9985, L100.0500 #### [facility] [address] [place], [address] EST GFR - AA 81 mL/min Normal >60 [facility] Comment on above: Order Comment: 215.2 Result Comment: Afri can [place] GFR Calc Performed By: #### L 500.4050, L501.9985, L100.0500 #### [facility] [address] [place], [address] GAP 4 Low 5-15 [facility] Comment on above: Order Comment: 215.2 Performed By: #### L 500.4050, L501.9985, L100.0500 #### [facility] [address] [place], [address] GFR/1.73 sq M.predicted among non-blacks MDRD (S/P/Bld) [Vol rate/Area] 67 mL/min/{1.73_m2} Normal >60 [facility] Comment on above: Order Comment: 215.2 Result Comment: Non- GFR Calc Performed By: #### L 500.4050, L501.9985, L100.0500 #### [facility] [address] [place], [address] Globulin (S) [Mass/Vol] 3.0 g/dL Normal 2.2-4.2 [facility] Comment on above: Order Comment: 215.2 Performed By: #### L 500.4050, L501.9985, L100.0500 #### [facility] [address] [place], [address] Glucose [Mass/Vol] 128 mg/dL High 74-106 [facility] Comment on above: Order Comment: 215.2 Result Comment: Fast ing Glucose result greater than or equal to 126 mg/dL suggests DIABETES MELLITUS per A.D.A. criteria. Performed By: #### L 500.4050, L501.9985, L100.0500 #### [facility] [address] [place], [address] Potassium [Moles/Vol] 4.2 mmol/L Normal 3.5-5.1 [facility] Comment on above: Order Comment: 215.2 Performed By: #### L 500.4050, L501.9985, L100.0500 #### [facility] [address] [place], [address] Sodium [Moles/Vol] 141 mmol/L Normal 136-145 [facility] Comment on above: Order Comment: 215.2 Performed By: #### L 500.4050, L501.9985, L100.0500 #### [facility] [address] [place], [address] T PROT 6.1 g/dL Low 6.4-8.2 [facility] Comment on above: Order Comment: 215.2 Performed By: #### L 500.4050, L501.9985, L100.0500 #### [facility] [address] [place], [address] Urea nitrogen [Mass/Vol] 24 mg/dL High 7-18 [facility] [facility] Comment on above: Order Comment: 215.2 Performed By: #### L 500.4050, L501.9985, L100.0500 #### [facility] [address] [place], [address] Hemoglobin A1con 04-14-2024 HbA1c (Bld) [Mass fraction] 6.5 % High 3.8-5.6 [facility] Comment on above: Order Comment: 215.2 Result Comment: Norm al < 5.7 % Prediabetic 5.7 - 6.4 % Diabetic >or= 6.5 % Please note range changes. Performed By: #### L 500.4050, L501.9985, L100.0500 #### [facility] [address] [place], [address] Urine Cultureon 04-11-2024 URC Culture exhibits no growth. Normal [facility] Comment on above: Performed By: #### L 500.4050, L501.9985, L100.0500 #### [facility] [address] [place], [address] CBC-Complete Blood Cnt No Di ffon 04-10-2024 Erythrocyte distribution width (RBC) [Ratio] 14.5 % Normal 11.6-14.6 [facility] Comment on above: Order Comment: 215.2 Performed By: #### L 500.4050, L501.9985, L100.0500 #### [facility] [address] [place], [address] Hematocrit (Bld) [Volume fraction] 41.3 % Normal 40-54 [facility] Comment on above: Order Comment: 215.2 Performed By: #### L 500.4050, L501.9985, L100.0500 #### [facility] [address] [place], [address] Hemoglobin (Bld) [Mass/Vol] 13.1 g/dL Normal 13.0-16. 5 [facility] Comment on above: Order Comment: 215.2 Performed By: #### L 500.4050, L501.9985, L100.0500 #### [facility] [address] [place], [address] MCH (RBC) [Entitic mass] 27.3 pg Normal 27.0-32.0 [facility] Comment on above: Order Comment: 215.2 Performed By: #### L 500.4050, L501.9985, L100.0500 #### [facility] [address] [place], [address] MCHC (RBC) [Mass/Vol] 31.7 g/dL Low 32-36 [facility] Comment on above: Order Comment: 215.2 Performed By: #### L 500.4050, L501.9985, L100.0500 #### [facility] [address] [place], [address] MCV (RBC) [Entitic vol] 86.0 fL Normal 80-94 [facility] Comment on above: Order Comment: 215.2 Performed By: #### L 500.4050, L501.9985, L100.0500 #### [facility] [address] [place], [address] Platelet mean volume (Bld) [Entitic vol] 9.4 fL Normal 6.2-12.0 [facility] Comment on above: Order Comment: 215.2 Performed By: #### L 500.4050, L501.9985, L100.0500 #### [facility] [address] [place], [address] Platelets (Bld) [#/Vol] 256 10*3/uL Normal 150-450 [facility] Comment on above: Order Comment: 215.2 Performed By: #### L 500.4050, L501.9985, L100.0500 #### [facility] [address] [place], [address] RBC (Bld) [#/Vol] 4.80 10*6/uL Normal 4.6-6.2 [facility] Comment on above: Order Comment: 215.2 Performed By: #### L 500.4050, L501.9985, L100.0500 #### [facility] [address] [place], [address] RDW SD 45.0 fl High 35.1-43.9 [facility] Comment on above: Order Comment: 215.2 Performed By: #### L 500.4050, L501.9985, L100.0500 #### [facility] [address] [place], [address] WBC (Bld) [#/Vol] 10.8 10*3/uL Normal 4.4-11.0 [facility] Comment on above: Order Comment: 215.2 Performed By: #### L 500.4050, L501.9985, L100.0500 #### [facility] [address] [place], [address] Urinalysis, Completeon 04-10 BACTERIA 0 SEEN Normal None Seen [facility] Comment on above: Order Comment: 215.2 Performed By: #### L 500.4050, L501.9985, L100.0500 #### [facility] [address] [place], [address] EPI,SQUAMOUS 0 SEEN Normal 0-5 [facility] Comment on above: Order Comment: 215.2 Performed By: #### L 500.4050, L501.9985, L100.0500 #### [facility] [address] [place], [address] Mucus Ql (Urine sed) 0 SEEN Normal [facility] Comment on above: Order Comment: 215.2 Performed By: #### L 500.4050, L501.9985, L100.0500 #### [facility] [address] [place], [address] RBC 0 SEEN Normal 0-5 [facility] Comment on above: Order Comment: 215.2 Performed By: #### L 500.4050, L501.9985, L100.0500 #### [facility] [address] [place], [address] WBC 0 SEEN Normal 0-5 [facility] Comment on above: Order Comment: 215.2 Performed By: #### L 500.4050, L501.9985, L100.0500 #### [facility] [address] [place], [address] CBC-Complete Blood Cnt No Di ffon 04-09-2024 Erythrocyte distribution width (RBC) [Ratio] 14.6 % Normal 11.6-14.6 [facility] Comment on above: Order Comment: 215.2 Performed By: #### L 300.3900 #### [facility] [address] [place], [address] Hematocrit (Bld) [Volume fraction] 39.6 % Low 40-54 [facility] Comment on above: Order Comment: 215.2 Performed By: #### L 300.3900 #### [facility] [address] [place], [address] Hemoglobin (Bld) [Mass/Vol] 12.4 g/dL Low 13.0-16. 5 [facility] Comment on above: Order Comment: 215.2 Performed By: #### L 300.3900 #### [facility] [address] [place], [address] MCH (RBC) [Entitic mass] 27.0 pg Normal 27.0-32.0 [facility] Comment on above: Order Comment: 215.2 Performed By: #### L 300.3900 #### [facility] [address] [place], [address] MCHC (RBC) [Mass/Vol] 31.3 g/dL Low 32-36 [facility] Comment on above: Order Comment: 215.2 Performed By: #### L 300.3900 #### [facility] [address] [place], [address] MCV (RBC) [Entitic vol] 86.3 fL Normal 80-94 [facility] Comment on above: Order Comment: 215.2 Performed By: #### L 300.3900 #### [facility] [address] [place], [address] Platelet mean volume (Bld) [Entitic vol] 9.4 fL Normal 6.2-12.0 [facility] Comment on above: Order Comment: 215.2 Performed By: #### L 300.3900 #### [facility] [address] [place], [address] Platelets (Bld) [#/Vol] 223 10*3/uL Normal 150-450 [facility] Comment on above: Order Comment: 215.2 Performed By: #### L 300.3900 #### [facility] [address] [place], [address] RBC (Bld) [#/Vol] 4.59 10*6/uL Low 4.6-6.2 [facility] Comment on above: Order Comment: 215.2 Performed By: #### L 300.3900 #### [facility] [address] [place], [address] RDW SD 45.5 fl High 35.1-43.9 [facility] Comment on above: Order Comment: 215.2 Performed By: #### L 300.3900 #### [facility] [address] [place], [address] WBC (Bld) [#/Vol] 11.9 10*3/uL High 4.4-11.0 [facility] Comment on above: Order Comment: 215.2 Performed By: #### L 300.3900 #### [facility] [address] [place], [address] CBC W/Diff, Automatedon 09-2 -2023 Absolute Lymph 2.54 X10 3/uL Normal 0.83-4.51 [facility] Comment on above: Performed By: #### L 300.3900 #### [facility] [address] [place], [address] Absolute Neut 7.3 X10 3/uL Normal 2.0-7.7 [facility] Comment on above: Performed By: #### L 300.3900 #### [facility] [address] [place], [address] Basophils/100 WBC (Bld) 0.3 % Normal 0-1 [facility] Comment on above: Performed By: #### L 300.3900 #### [facility] [address] [place], [address] Eosinophils/100 WBC (Bld) 3.7 % Normal 0-5 [facility] Comment on above: Performed By: #### L 300.3900 #### [facility] [address] [place], [address] Erythrocyte distribution width (RBC) [Ratio] 14.6 % Normal 11.6-14.6 [facility] Comment on above: Performed By: #### L 300.3900 #### [facility] [address] [place], [address] Hematocrit (Bld) [Volume fraction] 40.4 % Normal 40-54 [facility] Comment on above: Performed By: #### L 300.3900 #### [facility] [address] [place], [address] Hemoglobin (Bld) [Mass/Vol] 12.7 g/dL Low 13.0-16. 5 [facility] Comment on above: Performed By: #### L 300.3900 #### [facility] [address] [place], [address] IG% 2.000 High 0.0-0.9 [facility] Comment on above: Result Comment: IG% - Immature Granulocytes (promyelocytes, myelocytes and metamyelocytes) > 1% indicates that a LEFT SHIFT is Present. Performed By: #### L 300.3900 #### [facility] [address] [place], [address] Lymphocytes/100 WBC (Bld) 22.8 % Normal 19-41 [facility] Comment on above: Performed By: #### L 300.3900 #### [facility] [address] [place], [address] MCH (RBC) [Entitic mass] 27.3 pg Normal 27.0-32.0 [facility] Comment on above: Performed By: #### L 300.3900 #### [facility] [address] [place], [address] MCHC (RBC) [Mass/Vol] 31.4 g/dL Low 32-36 [facility] Comment on above: Performed By: #### L 300.3900 #### [facility] [address] [place], [address] MCV (RBC) [Entitic vol] 86.7 fL Normal 80-94 [facility] Comment on above: Performed By: #### L 300.3900 #### [facility] [address] [place], [address] Monocytes/100 WBC (Bld) 6.3 % Normal 0-10 [facility] Comment on above: Performed By: #### L 300.3900 #### [facility] [address] [place], [address] Neutrophils/100 WBC (Bld) 64.9 % Normal 47-70 [facility] Comment on above: Performed By: #### L 300.3900 #### [facility] [address] [place], [address] Nucleated RBC (Bld) [#/Vol] 0 10*3/uL Normal 0-5 [facility] Comment on above: Performed By: #### L 300.3900 #### [facility] [address] [place], [address] Platelet mean volume (Bld) [Entitic vol] 9.3 fL Normal 6.2-12.0 [facility] Comment on above: Performed By: #### L 300.3900 #### [facility] [address] [place], [address] Platelets (Bld) [#/Vol] 243 10*3/uL Normal 150-450 [facility] Comment on above: Performed By: #### L 300.3900 #### [facility] [address] [place], [address] RBC (Bld) [#/Vol] 4.66 10*6/uL Normal 4.6-6.2 [facility] Comment on above: Performed By: #### L 300.3900 #### [facility] [address] [place], [address] RDW SD 45.9 fl High 35.1-43.9 [facility] Comment on above: Performed By: #### L 300.3900 #### [facility] [address] [place], [address] WBC (Bld) [#/Vol] 11.2 10*3/uL High 4.4-11.0 [facility] Comment on above: Performed By: #### L 300.3900 #### [facility] [address] [place], [address] Comprehensive Metabolic Prof ilon 04-08-2024 Albumin [Mass/Vol] 3.1 g/dL Low 3.2-5.0 [facility] Comment on above: Performed By: #### L 300.3900 #### [facility] [address] [place], [address] Albumin/Globulin [Mass ratio] 1.1 {ratio} Normal 0.9-2.4 [facility] Comment on above: Performed By: #### L 300.3900 #### [facility] [address] [place], [address] ALK P 97 U/L Normal 45-117 [facility] Comment on above: Performed By: #### L 300.3900 #### [facility] [address] [place], [address] ALT [Catalytic activity/Vol] 18 U/L Normal 16-61 [facility] Comment on above: Performed By: #### L 300.3900 #### [facility] [address] [place], [address] AST [Catalytic activity/Vol] 7 U/L Low 15-37 [facility] Comment on above: Performed By: #### L 300.3900 #### [facility] [address] [place], [address] Bilirubin [Mass/Vol] 0.40 mg/dL Normal 0.20-1.00 [facility] Comment on above: Result Comment: For patients on eltrombopag therapy, use of Dimension [place] TBIL is not recommended. Performed By: #### L 300.3900 #### [facility] [address] [place], [address] BUN/CRE 29.1 RATIO High 10-20 [facility] Comment on above: Performed By: #### L 300.3900 #### [facility] [address] [place], [address] CA,Total 9.3 mg/dL Normal 8.5-10.1 [facility] Comment on above: Performed By: #### L 300.3900 #### [facility] [address] [place], [address] Chloride [Moles/Vol] 106 mmol/L Normal 98-107 [facility] Comment on above: Performed By: #### L 300.3900 #### [facility] [address] [place], [address] CO2 [Moles/Vol] 29.0 mmol/L Normal 21.0-32.0 [facility] Comment on above: Performed By: #### L 300.3900 #### [facility] [address] [place], [address] Creatinine [Mass/Vol] 1.10 mg/dL Normal 0.70-1.30 [facility] Comment on above: Result Comment: The validity of the calculated GFR GFRAA in patients over 70 years has not been determined. Clinical correlation is essential. Performed By: #### L 300.3900 #### [facility] [address] [place], [address] EST GFR - AA 84 mL/min Normal >60 [facility] Comment on above: Result Comment: Afri can [place] GFR Calc Performed By: #### L 300.3900 #### [facility] [address] [place], [address] GAP 5 Normal 5-15 [facility] Comment on above: Performed By: #### L 300.3900 #### [facility] [address] [place], [address] GFR/1.73 sq M.predicted among non-blacks MDRD (S/P/Bld) [Vol rate/Area] 69 mL/min/{1.73_m2} Normal >60 [facility] Comment on above: Result Comment: Non- GFR Calc Performed By: #### L 300.3900 #### [facility] [address] [place], [address] Globulin (S) [Mass/Vol] 2.8 g/dL Normal 2.2-4.2 [facility] Comment on above: Performed By: #### L 300.3900 #### [facility] [address] [place], [address] Glucose [Mass/Vol] 133 mg/dL High 74-106 [facility] Comment on above: Result Comment: Fast ing Glucose result greater than or equal to 126 mg/dL suggests DIABETES MELLITUS per A.D.A. criteria. Performed By: #### L 300.3900 #### [facility] [address] [place], [address] Potassium [Moles/Vol] 3.8 mmol/L Normal 3.5-5.1 [facility] Comment on above: Performed By: #### L 300.3900 #### [facility] [address] [place], [address] Sodium [Moles/Vol] 140 mmol/L Normal 136-145 [facility] Comment on above: Performed By: #### L 300.3900 #### [facility] [address] [place], [address] T PROT 5.9 g/dL Low 6.4-8.2 [facility] Comment on above: Performed By: #### L 300.3900 #### [facility] [address] [place], [address] Urea nitrogen [Mass/Vol] 32 mg/dL High 7-18 [facility] Comment on above: Performed By: #### L 300.3900 #### [facility] [address] [place], [address] Lipid Profileon 04-08-2024 Cholesterol [Mass/Vol] 100 mg/dL Normal 200 [facility] Comment on above: Result Comment: <200 mg/dL Desirable 200-240 mg/dL Borderline >240 mg/dL High Risk Performed By: #### L 300.3900 #### [facility] [address] [place], [address] Cholesterol in HDL [Mass/Vol] 34 mg/dL Low [facility] Comment on above: Result Comment: The drugs N-Acetylcysteine and Metamizole may falsely depress this assay. Reference Range HDL <40 mg/dL Low HDL Cholesterol HDL >or= 60 mg/dL High HDL Cholesterol Performed By: #### L 300.3900 #### [facility] [address] [place], [address] Cholesterol in LDL [Mass/Vol] 36 mg/dL Normal 0-130 [facility] Comment on above: Performed By: #### L 300.3900 #### [facility] [address] [place], [address] Cholesterol in VLDL [Mass/Vol] 30 mg/dL Normal 5-40 [facility] Comment on above: Performed By: #### L 300.3900 #### [facility] [address] [place], [address] Triglyceride [Mass/Vol] 148 mg/dL Normal [facility] Comment on above: Result Comment: The drugs N-Acetylcysteine and Metamizole may falsely depress this assay. Serum Triglycerides Reference Interval Normal <150 mg/dL Borderline high 150 - 199 mg/dL High 200 - 499 mg/dL Very High > or = 500 mg/dL Performed By: #### L 300.3900 #### [facility] [address] [place], [address] Cardiology Visit Reporton Cardiology Visit Report [facility] [address] [place] [address] OFFICE VISIT Date of Service: 04/07/24 MR#: [id number] Acct: [id number] Name: RICHARD ROY Rep #: [id number] : 1945 Provider: Dr. Olga Lidia Rasheed MD Age/Sex: 78/M Location: [facility] Status: Signed HPI HPI History of Present [...] bisacodyl 10 mg rectal suppository 10 mg DE DAILY PRN constipation 05/30/23 04/07/24 History loperamide [...] Hypertension Father Heart disease Social History housing: residential current occupational status: retired Smoking Status: Never smoker alcohol intake: never substance use type: does not use ROS Const Const: Negative for fatigue, weakness or headache(s) ENT ENT: Negative for headache(s), dizziness, Nosebleed/epistaxis or balance problems Cardio Chest Pain: No Palpitations: No Edema: None Muscle aches with walking: None Resp Respi (more content not included)... Normal [facility] Protime w/INR Fingerstickon 03-02-2024 INR Coag (PPP) [Relative time] 1.7 {INR} Normal [facility] Comment on above: Result Comment: Crit ical Value > 4.0 Performed By: #### L 9200.0000 #### [facility] [address] [place], [address] Protime Coagsen 18.4 SEC High 11.7-14.9 [facility] Comment on above: Performed By: #### L 9200.0000 #### [facility] [address] [place], [address] Prothrombin Time w/INRon INR Coag (PPP) [Relative time] 2.9 {INR} Normal [facility] Comment on above: Order Comment: 215.2 Performed By: #### L 9200.0000 #### [facility] [address] [place], [address] PT Coag (PPP) [Time] 30.1 s High 11.7-14.9 [facility] Comment on above: Order Comment: 215.2 Performed By: #### L 9200.0000 #### [facility] [address] [place], [address] Prothrombin Time w/INRon 08- 07-2024 INR Coag (PPP) [Relative time] 2.2 {INR} Normal [facility] Comment on above: Performed By: #### L 500.4050, L501.9985, L100.0500 #### [facility] [address] [place], [address] PT Coag (PPP) [Time] 24.6 s High 11.7-14.9 [facility] Comment on above: Performed By: #### L 500.4050, L501.9985, L100.0500 #### [facility] [address] [place], [address] Protime w/INR Fingerstickon 02-17-2024 INR Coag (PPP) [Relative time] 1.8 {INR} Normal [facility] Comment on above: Result Comment: Crit ical Value > 4.0 Performed By: #### L 9200.0000 #### [facility] [address] [place], [address] Protime Coagsen 19.6 SEC High 11.7-14.9 [facility] Comment on above: Performed By: #### L [id number] #### [facility] [address] [place], [address] Prothrombin Time w/INRon INR Coag (PPP) [Relative time] 2.6 {INR} Normal [facility] Comment on above: Order Comment: 215.2 Performed By: #### L 500.4050, L501.9985, L100.0500 #### [facility] [address] [place], [address] PT Coag (PPP) [Time] 27.9 s High 11.7-14.9 [facility] Comment on above: Order Comment: 215.2 Performed By: #### L [id number], [id number], L100.0500 #### [facility] [address] [place], [address] Prothrombin Time w/INRon INR Coag (PPP) [Relative time] 3.5 {INR} Normal [facility] Comment on above: Order Comment: 215.2 Performed By: #### L 300.3900 #### [facility] [address] [place], [address] PT Coag (PPP) [Time] 34.9 s High 11.7-14.9 [facility] Comment on above: Order Comment: 215.2 Performed By: #### L 300.3900 #### [facility] [address] [place], [address] Prothrombin Time w/INRon INR Coag (PPP) [Relative time] 3.3 {INR} Normal [facility] Comment on above: Order Comment: 215.2 Performed By: #### L [id number], [id number], L100.0500 #### [facility] [address] [place], [address] PT Coag (PPP) [Time] 33.5 s High 11.7-14.9 [facility] Comment on above: Order Comment: 215.2 Performed By: #### L [id number], [id number], L100.0500 #### [facility] [address] [place], [address] Protime w/INR Fingerstickon 02-03-2024 INR Coag (PPP) [Relative time] 2.6 {INR} Normal [facility] Comment on above: Result Comment: Crit ical Value > 4.0 Performed By: #### L 9200.0000 #### [facility] [address] [place], [address] Protime Coagsen 26.7 SEC High 11.7-14.9 [facility] Comment on above: Performed By: #### L 9200.0000 #### [facility] [address] [place], [address] Protime w/INR Fingerstickon 01-27-2024 INR Coag (PPP) [Relative time] 2.1 {INR} Normal [facility] Comment on above: Result Comment: Crit ical Value > 4.0 Performed By: #### L [id number], [id number], L100.0500 #### [facility] [address] [place], [address] Protime Coagsen 22.1 SEC High 11.7-14.9 [facility] Comment on above: Performed By: #### L [id number], [id number], L100.0500 #### [facility] [address] [place], [address] Prothrombin Time w/INRon INR Coag (PPP) [Relative time] 2.3 {INR} Normal [facility] Comment on above: Performed By: #### L [id number], [id number], L100.0500 #### [facility] [address] [place], [address] PT Coag (PPP) [Time] 25.4 s High 11.7-14.9 [facility] Comment on above: Performed By: #### L [id number], [id number], L100.0500 #### [facility] [address] [place], [address] Vitamin D,25 Hydroxyon 01-15 Vitamin D 25-OH 91.1 ng/mL Normal [facility] Comment on above: Order Comment: 215.2 Result Comment: Laure min D 25(OH) Status Range Deficiency <20 ng/mL (50nmol/L) Insufficiency 20 - 30 ng/mL (50 - 75 nmol/L) Sufficiency 30 - 100 ng/mL (75 - 250 nmol/L) Toxicity >100 ng/mL (>250 nmol/L) Performed By: #### L [id number] #### [facility] [address] [place], [address] CBC-Complete Blood Cnt No Di ffon 01-15-2024 Erythrocyte distribution width (RBC) [Ratio] 14.4 % Normal 11.6-14.6 [facility] Comment on above: Order Comment: 215.2 Performed By: #### L [id number] #### [facility] [address] [place], [address] Hematocrit (Bld) [Volume fraction] 40.5 % Normal 40-54 [facility] Comment on above: Order Comment: 215.2 Performed By: #### L [id number] #### [facility] [address] [place], [address] Hemoglobin (Bld) [Mass/Vol] 13.0 g/dL Normal 13.0-16. 5 [facility] Comment on above: Order Comment: 215.2 Performed By: #### L [id number] #### [facility] [address] [place], [address] MCH (RBC) [Entitic mass] 27.6 pg Normal 27.0-32.0 [facility] Comment on above: Order Comment: 215.2 Performed By: #### L [id number] #### [facility] [address] [place], [address] MCHC (RBC) [Mass/Vol] 32.1 g/dL Normal 32-36 [facility] Comment on above: Order Comment: 215.2 Performed By: #### L [id number] #### [facility] [address] [place], [address] MCV (RBC) [Entitic vol] 86.0 fL Normal 80-94 [facility] Comment on above: Order Comment: 215.2 Performed By: #### L [id number] #### [facility] [address] [place], [address] Platelet mean volume (Bld) [Entitic vol] 9.7 fL Normal 6.2-12.0 [facility] Comment on above: Order Comment: 215.2 Performed By: #### L [id number] #### [facility] [address] [place], [address] Platelets (Bld) [#/Vol] 228 10*3/uL Normal 150-450 [facility] Comment on above: Order Comment: 215.2 Performed By: #### L [id number] #### [facility] [address] [place], [address] RBC (Bld) [#/Vol] 4.71 10*6/uL Normal 4.6-6.2 [facility] Comment on above: Order Comment: 215.2 Performed By: #### L [id number] #### [facility] [address] [place], [address] RDW SD 44.4 fl High 35.1-43.9 [facility] Comment on above: Order Comment: 215.2 Performed By: #### L [id number] #### [facility] [address] [place], [address] WBC (Bld) [#/Vol] 8.8 10*3/uL Normal 4.4-11.0 [facility] Comment on above: Order Comment: 215.2 Performed By: #### L [id number] #### [facility] [address] [place], [address] Comprehensive Metabolic Prof ilon 01-15-2024 Albumin [Mass/Vol] 3.2 g/dL Normal 3.2-5.0 [facility] Comment on above: Order Comment: 215.2 Performed By: #### L [id number] #### [facility] [address] [place], [address] Albumin/Globulin [Mass ratio] 1.0 {ratio} Normal 0.9-2.4 [facility] Comment on above: Order Comment: 215.2 Performed By: #### L [id number] #### [facility] [address] [place], [address] ALK P 105 U/L Normal 45-117 [facility] Comment on above: Order Comment: 215.2 Performed By: #### L [id number] #### [facility] [address] [place], [address] ALT [Catalytic activity/Vol] 27 U/L Normal 16-61 [facility] Comment on above: Order Comment: 215.2 Performed By: #### L [id number] #### [facility] [address] [place], [address] AST [Catalytic activity/Vol] 8 U/L Low 15-37 [facility] Comment on above: Order Comment: 215.2 Performed By: #### L [id number] #### [facility] [address] [place], [address] Bilirubin [Mass/Vol] 0.40 mg/dL Normal 0.20-1.00 [facility] Comment on above: Order Comment: 215.2 Result Comment: For patients on eltrombopag therapy, use of Dimension [place] TBIL is not recommended. Performed By: #### L [id number] #### [facility] [address] [place], [address] BUN/CRE 22.0 RATIO High 10-20 [facility] Comment on above: Order Comment: 215.2 Performed By: #### L [id number] #### [facility] [address] [place], [address] CA,Total 9.1 mg/dL Normal 8.5-10.1 [facility] Comment on above: Order Comment: 215.2 Performed By: #### L [id number] #### [facility] [address] [place], [address] Chloride [Moles/Vol] 105 mmol/L Normal 98-107 [facility] Comment on above: Order Comment: 215.2 Performed By: #### L [id number] #### [facility] [address] [place], [address] CO2 [Moles/Vol] 30.0 mmol/L Normal 21.0-32.0 [facility] Comment on above: Order Comment: 215.2 Performed By: #### L [id number] #### [facility] [address] [place], [address] Creatinine [Mass/Vol] 1.27 mg/dL Normal 0.70-1.30 [facility] Comment on above: Order Comment: 215.2 Result Comment: The validity of the calculated GFR GFRAA in patients over 70 years has not been determined. Clinical correlation is essential. Performed By: #### L [id number] #### [facility] [address] [place], [address] EST GFR - AA 71 mL/min Normal >60 [facility] Comment on above: Order Comment: 215.2 Result Comment: Afri can [place] GFR Calc Performed By: #### L [id number] #### [facility] [address] [place], [address] GAP 6 Normal 5-15 [facility] Comment on above: Order Comment: 215.2 Performed By: #### L [id number] #### [facility] [address] [place], [address] GFR/1.73 sq M.predicted among non-blacks MDRD (S/P/Bld) [Vol rate/Area] 59 mL/min/{1.73_m2} Low >60 [facility] Comment on above: Order Comment: 215.2 Result Comment: Non- GFR Calc Performed By: #### L 9200.0000 #### [facility] [address] [place], [address] Globulin (S) [Mass/Vol] 3.1 g/dL Normal 2.2-4.2 [facility] Comment on above: Order Comment: 215.2 Performed By: #### L [id number] #### [facility] [address] [place], [address] Glucose [Mass/Vol] 150 mg/dL High 74-106 [facility] Comment on above: Order Comment: 215.2 Result Comment: Fast ing Glucose result greater than or equal to 126 mg/dL suggests DIABETES MELLITUS per A.D.A. criteria. Performed By: #### L [id number] #### [facility] [address] [place], [address] Potassium [Moles/Vol] 4.1 mmol/L Normal 3.5-5.1 [facility] Comment on above: Order Comment: 215.2 Performed By: #### L [id number] #### [facility] [address] [place], [address] Sodium [Moles/Vol] 141 mmol/L Normal 136-145 [facility] Comment on above: Order Comment: 215.2 Performed By: #### L [id number] #### [facility] [address] [place], [address] T PROT 6.3 g/dL Low 6.4-8.2 [facility] Comment on above: Order Comment: 215.2 Performed By: #### L [id number] #### [facility] [address] [place], [address] Urea nitrogen [Mass/Vol] 28 mg/dL High 7-18 [facility] Comment on above: Order Comment: 215.2 Performed By: #### L [id number] #### [facility] [address] [place], [address] Hemoglobin A1con 01-15-2024 HbA1c (Bld) [Mass fraction] 6.5 % High 3.8-5.6 [facility] Comment on above: Order Comment: 215.2 Result Comment: Norm al < 5.7 % Prediabetic 5.7 - 6.4 % Diabetic >or= 6.5 % Please note range changes. Performed By: #### L [id number] #### [facility] [address] [place], [address] Prothrombin Time w/INRon INR Coag (PPP) [Relative time] 2.5 {INR} Normal [facility] Comment on above: Order Comment: 215.2 Performed By: #### L [id number] #### [facility] [address] [place], [address] PT Coag (PPP) [Time] 27.2 s High 11.7-14.9 [facility] Comment on above: Order Comment: 215.2 Performed By: #### L [id number] #### [facility] [address] [place], [address] Thyroid Stim Hormone (TSH)on 01-15-2024 TSH 1.55 uIU/mL Normal 0.358-3.74 [facility] Comment on above: Order Comment: 215.2 Performed By: #### L [id number] #### [facility] [address] [place], [address] Protime w/INR Fingerstickon 01-14-2024 INR Coag (PPP) [Relative time] 3.8 {INR} Normal [facility] Comment on above: Result Comment: Crit ical Value > 4.0 Performed By: #### L [id number] #### [facility] [address] [place], [address] Protime Coagsen 37.5 SEC High 11.7-14.9 [facility] Comment on above: Performed By: #### L [id number] #### [facility] [address] [place], [address] Prothrombin Time w/INRon INR Coag (PPP) [Relative time] 3.9 {INR} Normal [facility] Comment on above: Order Comment: 215.2 Performed By: #### L 300.3900 #### [facility] [address] [place], [address] PT Coag (PPP) [Time] 37.6 s High 11.7-14.9 [facility] Comment on above: Order Comment: 215.2 Performed By: #### L 300.3900 #### [facility] [address] [place], [address] Protime w/INR Fingerstickon 01-06-2024 INR Coag (PPP) [Relative time] 2.0 {INR} Normal [facility] Comment on above: Result Comment: Crit ical Value > 4.0 Performed By: #### L [id number], L501.9985, L100.0500 #### [facility] [address] [place], [address] Protime Coagsen 20.9 SEC High 11.7-14.9 [facility] Comment on above: Performed By: #### L [id number], [id number], L100.0500 #### [facility] [address] [place], [address] Protime w/INR Fingerstickon 12-30-2023 INR Coag (PPP) [Relative time] 2.6 {INR} Normal [facility] Comment on above: Result Comment: Crit ical Value > 4.0 Performed By: #### L [id number] #### [facility] [address] [place], [address] Protime Coagsen 26.9 SEC High 11.7-14.9 [facility] Comment on above: Performed By: #### L [id number] #### [facility] [address] [place], [address] Protime w/INR Fingerstickon 12-27-2023 INR Coag (PPP) [Relative time] 2.1 {INR} Normal [facility] Comment on above: Result Comment: Crit ical Value > 4.0 Performed By: #### L [id number] #### [facility] [address] [place], [address] Protime Coagsen 22.2 SEC High 11.7-14.9 [facility] Comment on above: Performed By: #### L [id number] #### [facility] [address] [place], [address] Protime w/INR Fingerstickon 12-20-2023 INR Coag (PPP) [Relative time] 2.3 {INR} Normal [facility] Comment on above: Result Comment: Crit ical Value > 4.0 Performed By: #### L [id number], L501.9985, L100.0500 #### [facility] [address] [place], [address] Protime Coagsen 24.1 SEC High 11.7-14.9 [facility] Comment on above: Performed By: #### L [id number], [id number], L100.0500 #### [facility] [address] [place], [address] Prothrombin Time w/INRon INR Coag (PPP) [Relative time] 3.4 {INR} Normal [facility] Comment on above: Order Comment: 215.2 Performed By: #### L [id number], [id number], L100.0500 #### [facility] [address] [place], [place], [address] PT Coag (PPP) [Time] 33.7 s High 11.7-14.9 [facility] Comment on above: Order Comment: 215.2 Performed By: #### L [id number], [id number], L100.0500 #### [facility] [address] [place], [place], [address] Laboratory - CoagulationOrde red By: Walter Becker on 10-25-2023 INR Coag (Bld) [Relative time] 3.2 {INR} [facility] PT Coag (PPP) [Time] 32.9 s 11.7-14.9 [facility] Laboratory - CoagulationOrde red By: Walter Becker on 10-16-2023 INR Coag (Bld) [Relative time] 1.9 {INR} [facility] PT Coag (PPP) [Time] 21.6 s 11.7-14.9 [facility] Basophil percentageOrdered B y: Walter Becker on 10-08-2023 Cholesterol [Mass/Vol] 107 mg/dL <200 [facility] Comment on above: <200 mg/dL Desirable 200-240 mg/dL Borderline >240 mg/dL High Risk Triglyceride [Mass/Vol] 133 mg/dL <199 [facility] Comment on above: The drugs N-Acetylcy steine and Metamizole may falsely depress this assay.Serum Triglycerides Reference Interval Normal <150 mg/dL Borderline high 150 - 199 mg/dL High 200 - 499 mg/dL Very High > or = 500 mg/dL Laboratory - Chemistry and C hemistry - challengeOrdered By: Walter Becker on 10-08-2023 ALT [Catalytic activity/Vol] 18 U/L 16-61 [facility] Cholesterol in HDL [Mass/Vol] 35 mg/dL >40 [facility] Comment on above: The drugs N-Acetylcy steine and Metamizole may falsely depress this assay. Reference Range HDL <40 mg/dL Low HDL Cholesterol HDL >or= 60 mg/dL High HDL Cholesterol Cholesterol in LDL [Mass/Vol] 45 mg/dL 0-130 [facility] CK [Catalytic activity/Vol] 59 U/L 39-308 [facility] No Panel InformationOrdered By: Walter Becker on 10-08-2023 VLDL Cholesterol 27 mg/dL 5-40 [facility] Thin prep Papanicolaou smear with manual screeningOrdered By: Walter Becker on 10-08-2023 Thin prep Papanicolaou smear with manual screening 10 U/L 15-37 [facility] Capillary blood internationa l normalized ratio (INR)Ordered By: Walter Becker on 10-04-2023 INR Coag (BldC) [Relative time] 2.2 [facility] Comment on above: Critical Value > 4.0 Whole blood prothrombin time Ordered By: Walter Becker on 10-04-2023 PT Coag (Bld) [Time] 22.6 s 11.7-14.9 [facility] Capillary blood internationa l normalized ratio (INR)Ordered By: Walter Becker on 10-01-2023 INR Coag (BldC) [Relative time] 1.9 [facility] Comment on above: Critical Value > 4.0 Whole blood prothrombin time Ordered By: Walter Becker on 10-01-2023 PT Coag (Bld) [Time] 19.9 s 11.7-14.9 [facility] Basophil percentageOrdered B y: Walter Becker on 09-25-2023 Bilirubin [Mass/Vol] 0.30 mg/dL 0.20-1.00 [facility] Comment on above: For patients on eltr ombopag therapy, use of Dimension [place] TBIL is not recommended. Chloride [Moles/Vol] 105 mmol/L 98-107 [facility] Glucose [Mass/Vol] 125 mg/dL 74-106 [facility] Comment on above: Fasting Glucose resu lt from 100 to 125 mg/dL suggests IMPAIRED HOMEOSTASIS per A.D.A. criteria. Hemoglobin (Bld) [Mass/Vol] 12.6 g/dL 13.0-16. 5 [facility] Potassium [Moles/Vol] 4.2 mmol/L 3.5-5.1 [facility] Protein [Mass/Vol] 6.2 g/dL 6.4-8.2 [facility] Sodium [Moles/Vol] 140 mmol/L 136-145 [facility] WBC (Bld) [#/Vol] 10.6 10*3/uL 4.4-11.0 [facility] Determination of erythrocyte mean corpuscular volume (MCV)Ordered By: Walter Becker on 09-25-2023 MCV (RBC) [Entitic vol] 85.8 fL 80-94 [facility] Erythrocyte distribution wid th ratioOrdered By: Walter Becker on 09-25-2023 Erythrocyte distribution width (RBC) [Ratio] 13.7 % 11.6-14.6 [facility] Erythrocyte distribution wid th standard deviationOrdered By: Walter Becker on 09-25-2023 Erythrocyte distribution width (RBC) [Entitic vol] 42.4 fL 35.1-43.9 [facility] Hematocrit Auto (Bld) [Volum e fraction]Ordered By: Walter Becker on 09-25-2023 Hematocrit (Bld) [Volume fraction] 39.4 % 40-54 [facility] Laboratory - Chemistry and C hemistry - challengeOrdered By: Walter Becker on 09-25-2023 Albumin/Globulin [Mass ratio] 1.1 {ratio} 0.9-2.4 [facility] ALP [Catalytic activity/Vol] 107 U/L 45-117 [facility] ALT [Catalytic activity/Vol] 19 U/L 16-61 [facility] CO2 [Moles/Vol] 29.0 mmol/L 21.0-32.0 [facility] Globulin (S) [Mass/Vol] 3.0 g/dL 2.2-4.2 [facility] Urea nitrogen/Creatinine [Mass ratio] 29.8 mg/mg 10-20 [facility] - CoagulationOrde red By: Walter Becker on 09-25-2023 INR Coag (Bld) [Relative time] 2.8 {INR} [facility] PT Coag (PPP) [Time] 28.9 s 11.7-14.9 [facility] Laboratory - Hematology and Cell countsOrdered By: Walter Becker on 09-25-2023 MCH (RBC) [Entitic mass] 27.5 pg 27.0-32.0 [facility] MCHC (RBC) [Mass/Vol] 32.0 g/dL 32-36 [facility] Platelet mean volume (Bld) [Entitic vol] 9.9 fL 6.2-12.0 [facility] Platelets (Bld) [#/Vol] 235 10*3/uL 150-450 [facility] No Panel InformationOrdered By: Walter Becker on 09-25-2023 Estimated GFR (MDRD) Amer 75 mL/min >60 [facility] Comment on above: GFR Calc Estimated GFR (MDRD) Non-Af Amer 62 mL/min >60 [facility] Comment on above: Non- GFR Calc RBC Auto (Bld) [#/Vol]Ordere d By: Walter Becker on 09-25-2023 RBC (Bld) [#/Vol] 4.59 10*6/uL 4.6-6.2 [facility] Serum or plasma calcium antoine urement (mass/volume)Ordered By: Walter Becker on 09-25-2023 Calcium [Mass/Vol] 9.6 mg/dL 8.5-10.1 [facility] Serum or plasma creatinine m easurement (mass/volume)Ordered By: Walter Becker on 09-25-2023 Creatinine [Mass/Vol] 1.21 mg/dL 0.70-1.30 [facility] Comment on above: The validity of the calculated GFR & GFRAA in patients over 70 years has not been determined. Clinical correlation is essential. Serum or plasma urea nitroge n measurement (mass/volume)Ordered By: Walter Becker on 09-25-2023 Urea nitrogen [Mass/Vol] 36 mg/dL 7-18 [facility] Thin prep Papanicolaou smear with manual screeningOrdered By: Walter Becker on 09-25-2023 Thin prep Papanicolaou smear with manual screening 3.2 g/dL 3.2-5.0 [facility] Thin prep Papanicolaou smear with manual screening 11 U/L 15-37 [facility] Thin prep Papanicolaou smear with manual screening 6 5-15 [facility] Laboratory - CoagulationOrde red By: Walter Becker on 09-18-2023 INR Coag (Bld) [Relative time] 1.6 {INR} [facility] PT Coag (PPP) [Time] 18.7 s 11.7-14.9 [facility] Capillary blood internationa l normalized ratio (INR)Ordered By: Walter Becker on 09-13-2023 INR Coag (BldC) [Relative time] 3.1 [facility] Comment on above: Critical Value > 4.0 Whole blood prothrombin time Ordered By: Walter Becker on 09-13-2023 PT Coag (Bld) [Time] 33.3 s 11.7-14.9 [facility] Capillary blood internationa l normalized ratio (INR)Ordered By: Walter Becker on 09-12-2023 INR Coag (BldC) [Relative time] 1.7 [facility] Comment on above: Critical Value > 4.0 Whole blood prothrombin time Ordered By: Walter Becker on 09-12-2023 PT Coag (Bld) [Time] 19.2 s 11.7-14.9 [facility] Capillary blood internationa l normalized ratio (INR)Ordered By: Walter Becker on 09-09-2023 INR Coag (BldC) [Relative time] 2.9 [facility] Comment on above: Critical Value > 4.0 Whole blood prothrombin time Ordered By: Walter Becker on 09-09-2023 PT Coag (Bld) [Time] 31.5 s 11.7-14.9 [facility] Laboratory - CoagulationOrde red By: Walter Becker on 08-26-2023 INR Coag (Bld) [Relative time] 2.2 {INR} [facility] PT Coag (PPP) [Time] 24.7 s 11.7-14.9 [facility] Capillary blood internationa l normalized ratio (INR)Ordered By: Walter Becker on 08-19-2023 INR Coag (BldC) [Relative time] 2.7 [facility] Comment on above: Critical Value > 4.0 Whole blood prothrombin time Ordered By: Walter Becker on 08-19-2023 PT Coag (Bld) [Time] 29.2 s 11.7-14.9 [facility] Capillary blood internationa l normalized ratio (INR)Ordered By: Walter Becker on 08-12-2023 INR Coag (BldC) [Relative time] 2.5 [facility] Comment on above: Critical Value > 4.0 Whole blood prothrombin time Ordered By: Walter Becker on 08-12-2023 PT Coag (Bld) [Time] 26.7 s 11.7-14.9 [facility] Capillary blood internationa l normalized ratio (INR)Ordered By: Walter Becker on 08-05-2023 INR Coag (BldC) [Relative time] 1.9 [facility] Comment on above: Critical Value > 4.0 Whole blood prothrombin time Ordered By: Walter Becker on 08-05-2023 PT Coag (Bld) [Time] 20.7 s 11.7-14.9 [facility] Laboratory - CoagulationOrde red By: Walter Becker on 07-29-2023 INR Coag (Bld) [Relative time] 2.3 {INR} [facility] Comment on above: Critical Value > 4.0 Whole blood prothrombin time Ordered By: Walter Becker on 07-29-2023 PT Coag (Bld) [Time] 25.0 s 11.7-14.9 [facility] Laboratory - CoagulationOrde red By: Walter Becker on 07-22-2023 INR Coag (Bld) [Relative time] 2.0 {INR} [facility] Comment on above: Critical Value > 4.0 Whole blood prothrombin time Ordered By: Walter Becker on 07-22-2023 PT Coag (Bld) [Time] 22.4 s 11.7-14.9 [facility] Laboratory - CoagulationOrde red By: Walter Becker on 07-19-2023 INR Coag (Bld) [Relative time] 3.4 {INR} [facility] Comment on above: Critical Value > 4.0 Whole blood prothrombin time Ordered By: Walter Becker on 07-19-2023 PT Coag (Bld) [Time] 36.2 s 11.7-14.9 [facility] Laboratory - CoagulationOrde red By: Walter Becker on 07-17-2023 INR Coag (Bld) [Relative time] 3.0 {INR} [facility] Comment on above: Critical Value > 4.0 Whole blood prothrombin time Ordered By: Walter Becker on 07-17-2023 PT Coag (Bld) [Time] 32.2 s 11.7-14.9 [facility] Laboratory - CoagulationOrde red By: Walter Becker on 07-10-2023 INR Coag (Bld) [Relative time] 2.3 {INR} [facility] Comment on above: Critical Value > 4.0 Whole blood prothrombin time Ordered By: Walter Becker on 07-10-2023 PT Coag (Bld) [Time] 25.4 s 11.7-14.9 [facility] Laboratory - CoagulationOrde red By: Walter Becker on 07-03-2023 INR Coag (Bld) [Relative time] 1.5 {INR} [facility] Comment on above: Critical Value > 4.0 Whole blood prothrombin time Ordered By: Walter Becker on 07-03-2023 PT Coag (Bld) [Time] 16.5 s 11.7-14.9 [facility] Laboratory - CoagulationOrde red By: Walter Becker on 06-26-2023 INR Coag (Bld) [Relative time] 2.3 {INR} [facility] Comment on above: Critical Value > 4.0 Whole blood prothrombin time Ordered By: Walter Becker on 06-26-2023 PT Coag (Bld) [Time] 24.7 s 11.7-14.9 [facility] Laboratory - CoagulationOrde red By: Walter Becker on 06-25-2023 INR Coag (Bld) [Relative time] 3.2 {INR} [facility] Comment on above: Critical Value > 4.0 Whole blood prothrombin time Ordered By: Walter Becker on 06-25-2023 PT Coag (Bld) [Time] 34.3 s 11.7-14.9 [facility] Laboratory - CoagulationOrde red By: Walter Becker on 06-24-2023 INR Coag (Bld) [Relative time] 3.4 {INR} [facility] Comment on above: Critical Value > 4.0 Whole blood prothrombin time Ordered By: Walter Becker on 06-24-2023 PT Coag (Bld) [Time] 36.4 s 11.7-14.9 [facility] Laboratory - CoagulationOrde red By: Walter Becker on 06-17-2023 INR Coag (Bld) [Relative time] 2.4 {INR} [facility] Comment on above: Critical Value > 4.0 Whole blood prothrombin time Ordered By: Walter Becker on 06-17-2023 PT Coag (Bld) [Time] 26.1 s 11.7-14.9 [facility] Laboratory - CoagulationOrde red By: Walter Becker on 06-10-2023 INR Coag (Bld) [Relative time] 1.4 {INR} [facility] Comment on above: Critical Value > 4.0 Whole blood prothrombin time Ordered By: Walter Becker on 06-10-2023 PT Coag (Bld) [Time] 15.9 s 11.7-14.9 [facility] Glucose Glucometer (dC) [M ass/Vol]Ordered By: Kee Merritt on 06-03-2023 Glucose [Mass/Vol] 130 mg/dL 74-106 [facility] Comment on above: MANAGEMENT OF PATIEN T CARE PER NURSING PROTOCOL Laboratory - CoagulationOrde red By: Walter Becker on 05-20-2023 INR Coag (Bld) [Relative time] 2.6 {INR} [facility] Comment on above: Critical Value > 4.0 No Panel InformationOrdered By: Walter Becker on 05-20-2023 2.6 [facility] Whole blood prothrombin time Ordered By: Walter Becker on 05-20-2023 PT Coag (Bld) [Time] 27.6 s 11.7-14.9 [facility] Basophil percentageOrdered B y: Walter Becker on 11-01-2023 Basophil percentage 0 SEEN /hpf 0-5 [facility] Basophil percentage 114 mg/dL 74-106 [facility] Basophil percentage 5.9 g/dL 6.4-8.2 [facility] Basophil percentage 0.40 mg/dL 0.20-1.00 [facility] Basophil percentage 140 mmol/L 136-145 [facility] Basophil percentage 4.1 mmol/L 3.5-5.1 [facility] Basophil percentage 105 mmol/L 98-107 [facility] Basophils (Bld) [#/Vol] 10.4 10*3/uL 4.4-11.0 [facility] Bilirubin [Mass/Vol] 0.40 mg/dL 0.20-1.00 [facility] Comment on above: For patients on eltr ombopag therapy, use of Dimension [place] TBIL is not recommended. Chloride [Moles/Vol] 105 mmol/L 98-107 [facility] Glucose [Mass/Vol] 114 mg/dL 74-106 [facility] Comment on above: Fasting Glucose resu lt from 100 to 125 mg/dL suggests IMPAIRED HOMEOSTASIS per A.D.A. criteria. Potassium [Moles/Vol] 4.1 mmol/L 3.5-5.1 [facility] Protein [Mass/Vol] 5.9 g/dL 6.4-8.2 [facility] Sodium [Moles/Vol] 140 mmol/L 136-145 [facility] WBC (Bld) [#/Vol] 10.4 10*3/uL 4.4-11.0 [facility] Bilirubin Test strip Ql (U)O rdered By: Walter Becker on 05-15-2023 Bilirubin Ql (U) Negative Negative [facility] Blood erythrocytes count (nu mber/volume)Ordered By: Walter Becker on 05-15-2023 RBC (Bld) [#/Vol] 4.37 10*6/uL 4.6-6.2 [facility] Blood hemoglobin measurement (mass/volume)Ordered By: Walter Becker on 05-15-2023 Hemoglobin (Bld) [Mass/Vol] 11.6 g/dL 13.0-16. 5 [facility] Blood platelet mean volumeOr dered By: Walter Becker on 05-15-2023 Platelet mean volume (Bld) [Entitic vol] 9.4 fL 6.2-12.0 [facility] Culture, urineOrdered By: Horner on 05-15-2023 Bacteria identified Cx Nom (U) Culture exhibits no growth. [facility] Determination of erythrocyte mean corpuscular volume (MCV)Ordered By: Walter Becker on 05-15-2023 MCV (RBC) [Entitic vol] 84.7 fL 80-94 [facility] Hematocrit Auto (Bld) [Volum e fraction]Ordered By: Walter Becker on 05-15-2023 Hematocrit (Bld) [Volume fraction] 37.0 % 40-54 [facility] Ketones Test strip Ql (U)Ord ered By: Walter Becker on 05-15-2023 Ketones Ql (U) Negative Negative [facility] Laboratory - Chemistry and C hemistry - challengeOrdered By: Walter Becker on 05-15-2023 ALP [Catalytic activity/Vol] 97 U/L 45-117 [facility] ALT [Catalytic activity/Vol] 21 U/L 16-61 [facility] CO2 [Moles/Vol] 28.0 mmol/L 21.0-32.0 [facility] Globulin (S) [Mass/Vol] 3.0 g/dL 2.2-4.2 [facility] Urea nitrogen/Creatinine [Mass ratio] 30.7 mg/mg 10-20 [facility] Laboratory - Hematology and Cell countsOrdered By: Walter Becker on 05-15-2023 Erythrocyte distribution width (RBC) [Entitic vol] 43.3 fL 35.1-43.9 [facility] Erythrocyte distribution width (RBC) [Ratio] 14.1 % 11.6-14.6 [facility] MCH (RBC) [Entitic mass] 26.5 pg 27.0-32.0 [facility] MCHC Auto (RBC) [Mass/Vol]Or dered By: Walter Becker on 05-15-2023 MCHC (RBC) [Mass/Vol] 31.4 g/dL 32-36 [facility] Mucus LM Ql (Urine sed)Order ed By: Walter Becker on 05-15-2023 Mucus Ql (Urine sed) 0 SEEN /hpf [facility] Nitrite Test strip Ql (U)Ord ered By: Walter Becker on 05-15-2023 Nitrite Ql (U) Negative Negative [facility] No Panel InformationOrdered By: Wlater Becker on 05-15-2023 Estimated GFR (MDRD) Amer 96 mL/min >60 [facility] Comment on above: GFR Calc Estimated GFR (MDRD) Non-Af Amer 79 mL/min >60 [facility] Comment on above: Non- GFR Calc 26.5 pg 27.0-32.0 [facility] 14.1 % 11.6-14.6 [facility] 43.3 fl 35.1-43.9 [facility] 79 mL/min >60 [facility] 96 mL/min >60 [facility] 30.7 RATIO 10-20 [facility] 3.0 g/dL 2.2-4.2 [facility] 97 U/L 45-117 [facility] 21 U/L 16-61 [facility] 28.0 mmol/L 21.0-32.0 [facility] Platelets bldOrdered By: Crystal Becker on 05-15-2023 Platelets (Bld) [#/Vol] 256 10*3/uL 150-450 [facility] Protein Test strip Ql (U)Ord ered By: Walter Becker on 05-15-2023 Protein Ql (U) Negative Negative [facility] Serum or plasma albumin antoine urement (mass/volume)Ordered By: Walter Becker on 05-15-2023 Albumin [Mass/Vol] 2.9 g/dL 3.2-5.0 [facility] Serum or plasma albumin/glob ulin mass ratioOrdered By: Walter Becker on 05-15-2023 Albumin/Globulin [Mass ratio] 1.0 {ratio} 0.9-2.4 [facility] Serum or plasma calcium antoine urement (mass/volume)Ordered By: Walter Becker on 05-15-2023 Calcium [Mass/Vol] 8.8 mg/dL 8.5-10.1 [facility] Serum or plasma creatinine m easurement (mass/volume)Ordered By: Walter Becker on 05-15-2023 Creatinine [Mass/Vol] 0.98 mg/dL 0.70-1.30 [facility] Comment on above: The validity of the calculated GFR & GFRAA in patients over 70 years has not been determined. Clinical correlation is essential. Serum or plasma urea nitroge n measurement (mass/volume)Ordered By: Walter Becker on 05-15-2023 Urea nitrogen [Mass/Vol] 30 mg/dL 7-18 [facility] Squamous epithelial cells de tection in urine sediment by light microscopyOrdered By: Walter Becker on 05-15-2023 Epithelial cells.squamous LM Ql (Urine sed) 0 SEEN /hpf 0-5 [facility] Thin prep Papanicolaou smear with manual screeningOrdered By: Walter Becker on 05-15-2023 Thin prep Papanicolaou smear with manual screening 9 U/L 15-37 [facility] Thin prep Papanicolaou smear with manual screening 7 5-15 [facility] Urine blood detectionOrdered By: Walter Becker on 05-15-2023 RBC Ql (U) Negative Negative [facility] RBC Ql (U) 0 SEEN /hpf 0-5 [facility] Urine clarityOrdered By: Crystal Becker on 05-15-2023 Clarity (U) Clear Clear [facility] Urine color determinationOrd ered By: Walter Becker on 05-15-2023 Color (U) Yellow Yellow [facility] Urine glucose detectionOrder ed By: Walter Becker on 05-15-2023 Glucose Ql (U) Normal mg/dl Normal [facility] Urine leukocyte esterase det ection by dipstickOrdered By: Walter Becker on 05-15-2023 Leukocyte esterase Test strip Ql (U) Negative Negative [facility] Urine pHOrdered By: Walter floyd on 05-15-2023 pH (U) 5.0 [pH] 5.0 - 8.0 [facility] Urine sediment bacteria coun t by microscopy (number/high power field)Ordered By: Walter Becker on 05-15-2023 Bacteria LM.HPF (Urine sed) [#/Area] 0 /[HPF] None Seen [facility] Urine specific gravity measu rementOrdered By: Walter Becker on 05-15-2023 Specific gravity (U) [Rel density] 1.010 1.002-1.03 0 [facility] Urobilinogen Auto test strip Ql (U)Ordered By: Walter Becker on 05-15-2023 Urobilinogen Ql (U) Normal mg/dl Normal [facility] Basophil percentageOrdered B y: Walter Becker on 05-06-2023 Basophil percentage 135 mg/dL 74-106 [facility] Basophil percentage 5.9 g/dL 6.4-8.2 [facility] Basophil percentage 0.40 mg/dL 0.20-1.00 [facility] Basophil percentage 140 mmol/L 136-145 [facility] Basophil percentage 3.7 mmol/L 3.5-5.1 [facility] Basophil percentage 106 mmol/L 98-107 [facility] Basophils (Bld) [#/Vol] 9.4 10*3/uL 4.4-11.0 [facility] Bilirubin [Mass/Vol] 0.40 mg/dL 0.20-1.00 [facility] Comment on above: For patients on eltr ombopag therapy, use of Dimension [place] TBIL is not recommended. Chloride [Moles/Vol] 106 mmol/L 98-107 [facility] Glucose [Mass/Vol] 135 mg/dL 74-106 [facility] Comment on above: Fasting Glucose resu lt greater than or equal to 126 mg/dL suggests DIABETES MELLITUS per A.D.A. criteria. Potassium [Moles/Vol] 3.7 mmol/L 3.5-5.1 [facility] Protein [Mass/Vol] 5.9 g/dL 6.4-8.2 [facility] Sodium [Moles/Vol] 140 mmol/L 136-145 [facility] WBC (Bld) [#/Vol] 9.4 10*3/uL 4.4-11.0 [facility] Blood erythrocytes count (nu mber/volume)Ordered By: Walter Becker on 05-06-2023 RBC (Bld) [#/Vol] 4.49 10*6/uL 4.6-6.2 [facility] Blood hemoglobin measurement (mass/volume)Ordered By: Walter Becker on 05-06-2023 Hemoglobin (Bld) [Mass/Vol] 12.0 g/dL 13.0-16. 5 [facility] Blood platelet mean volumeOr dered By: Walter Becker on 05-06-2023 Platelet mean volume (Bld) [Entitic vol] 9.5 fL 6.2-12.0 [facility] Determination of erythrocyte mean corpuscular volume (MCV)Ordered By: Walter Becker on 05-06-2023 MCV (RBC) [Entitic vol] 85.7 fL 80-94 [facility] Hematocrit Auto (Bld) [Volum e fraction]Ordered By: Walter Becker on 05-06-2023 Hematocrit (Bld) [Volume fraction] 38.5 % 40-54 [facility] INR in Blood by Coagulation assayOrdered By: Walter Becker on 05-06-2023 INR Coag (Bld) [Relative time] 2.5 {INR} [facility] Laboratory - Chemistry and C hemistry - challengeOrdered By: Walter Becker on 05-06-2023 ALP [Catalytic activity/Vol] 93 U/L 45-117 [facility] ALT [Catalytic activity/Vol] 23 U/L 16-61 [facility] CO2 [Moles/Vol] 29.0 mmol/L 21.0-32.0 [facility] Globulin (S) [Mass/Vol] 2.9 g/dL 2.2-4.2 [facility] Urea nitrogen/Creatinine [Mass ratio] 25.8 mg/mg 10-20 [facility] Laboratory - CoagulationOrde red By: Walter Becker on 05-06-2023 PT Coag (PPP) [Time] 27.5 s 11.7-14.9 [facility] Laboratory - Hematology and Cell countsOrdered By: Walter Becker on 05-06-2023 Erythrocyte distribution width (RBC) [Entitic vol] 44.4 fL 35.1-43.9 [facility] Erythrocyte distribution width (RBC) [Ratio] 14.2 % 11.6-14.6 [facility] MCH (RBC) [Entitic mass] 26.7 pg 27.0-32.0 [facility] MCHC Auto (RBC) [Mass/Vol]Or dered By: Walter Becker on 05-06-2023 MCHC (RBC) [Mass/Vol] 31.2 g/dL 32-36 [facility] No Panel InformationOrdered By: Walter Becker on 05-06-2023 Estimated GFR (MDRD) Amer 102 mL/min >60 [facility] Comment on above: GFR Calc Estimated GFR (MDRD) Non-Af Amer 84 mL/min >60 [facility] Comment on above: Non- GFR Calc 26.7 pg 27.0-32.0 [facility] 14.2 % 11.6-14.6 [facility] 44.4 fl 35.1-43.9 [facility] 27.5 SECONDS 11.7-14.9 [facility] 84 mL/min >60 [facility] 102 mL/min >60 [facility] 25.8 RATIO 10-20 [facility] 2.9 g/dL 2.2-4.2 [facility] 93 U/L 45-117 [facility] 23 U/L 16-61 [facility] 29.0 mmol/L 21.0-32.0 [facility] Platelets bldOrdered By: Crystal Becker on 05-06-2023 Platelets (Bld) [#/Vol] 238 10*3/uL 150-450 [facility] Serum or plasma albumin antoine urement (mass/volume)Ordered By: Walter Becker on 05-06-2023 Albumin [Mass/Vol] 3.0 g/dL 3.2-5.0 [facility] Serum or plasma albumin/glob ulin mass ratioOrdered By: Walter Becker on 05-06-2023 Albumin/Globulin [Mass ratio] 1.0 {ratio} 0.9-2.4 [facility] Serum or plasma calcium antoine urement (mass/volume)Ordered By: Walter Becker on 05-06-2023 Calcium [Mass/Vol] 9.1 mg/dL 8.5-10.1 [facility] Serum or plasma creatinine m easurement (mass/volume)Ordered By: Walter Becker on 05-06-2023 Creatinine [Mass/Vol] 0.93 mg/dL 0.70-1.30 [facility] Comment on above: The validity of the calculated GFR & GFRAA in patients over 70 years has not been determined. Clinical correlation is essential. Serum or plasma urea nitroge n measurement (mass/volume)Ordered By: Walter Becker on 05-06-2023 Urea nitrogen [Mass/Vol] 24 mg/dL 7-18 [facility] Thin prep Papanicolaou smear with manual screeningOrdered By: Watler Becker on 05-06-2023 Thin prep Papanicolaou smear with manual screening 10 U/L 15-37 [facility] Thin prep Papanicolaou smear with manual screening 5 5-15 [facility] Laboratory - CoagulationOrde red By: Walter Becker on 04-29-2023 INR Coag (Bld) [Relative time] 2.8 {INR} [facility] Comment on above: Critical Value > 4.0 No Panel InformationOrdered By: Walter Becker on 04-29-2023 2.8 [facility] Whole blood prothrombin time Ordered By: Walter Becker on 04-29-2023 PT Coag (Bld) [Time] 29.6 s 11.7-14.9 [facility] Laboratory - CoagulationOrde red By: Walter Becker on 04-15-2023 INR Coag (Bld) [Relative time] 2.5 {INR} [facility] Comment on above: Critical Value > 4.0 No Panel InformationOrdered By: Walter Becker on 04-15-2023 2.5 [facility] Whole blood prothrombin time Ordered By: Walter Becker on 04-15-2023 PT Coag (Bld) [Time] 27.3 s 11.7-14.9 [facility] Basophil percentageOrdered B y: Walter Becker on 04-09-2023 Basophil percentage 115 mg/dL 74-106 [facility] Basophil percentage 5.8 g/dL 6.4-8.2 [facility] Basophil percentage 0.40 mg/dL 0.20-1.00 [facility] Basophil percentage 141 mmol/L 136-145 [facility] Basophil percentage 3.9 mmol/L 3.5-5.1 [facility] Basophil percentage 106 mmol/L 98-107 [facility] Basophils (Bld) [#/Vol] 10.2 10*3/uL 4.4-11.0 [facility] Bilirubin [Mass/Vol] 0.40 mg/dL 0.20-1.00 [facility] Comment on above: For patients on eltr ombopag therapy, use of Dimension [place] TBIL is not recommended. Chloride [Moles/Vol] 106 mmol/L 98-107 [facility] Glucose [Mass/Vol] 115 mg/dL 74-106 [facility] Comment on above: Fasting Glucose resu lt from 100 to 125 mg/dL suggests IMPAIRED HOMEOSTASIS per A.D.A. criteria. Potassium [Moles/Vol] 3.9 mmol/L 3.5-5.1 [facility] Protein [Mass/Vol] 5.8 g/dL 6.4-8.2 [facility] Sodium [Moles/Vol] 141 mmol/L 136-145 [facility] WBC (Bld) [#/Vol] 10.2 10*3/uL 4.4-11.0 [facility] Blood erythrocytes count (nu mber/volume)Ordered By: Walter Becker on 04-09-2023 RBC (Bld) [#/Vol] 4.16 10*6/uL 4.6-6.2 [facility] Blood hemoglobin measurement (mass/volume)Ordered By: Walter Becker on 04-09-2023 Hemoglobin (Bld) [Mass/Vol] 11.3 g/dL 13.0-16. 5 [facility] Blood platelet mean volumeOr dered By: Walter Becker on 04-09-2023 Platelet mean volume (Bld) [Entitic vol] 9.4 fL 6.2-12.0 [facility] Determination of erythrocyte mean corpuscular volume (MCV)Ordered By: Walter Becker on 04-09-2023 MCV (RBC) [Entitic vol] 86.5 fL 80-94 [facility] Hematocrit Auto (Bld) [Volum e fraction]Ordered By: Walter Becker on 04-09-2023 Hematocrit (Bld) [Volume fraction] 36.0 % 40-54 [facility] Laboratory - Chemistry and C hemistry - challengeOrdered By: Walter Becker on 04-09-2023 ALP [Catalytic activity/Vol] 105 U/L 45-117 [facility] ALT [Catalytic activity/Vol] 22 U/L 16-61 [facility] CO2 [Moles/Vol] 31.0 mmol/L 21.0-32.0 [facility] Globulin (S) [Mass/Vol] 2.9 g/dL 2.2-4.2 [facility] Urea nitrogen/Creatinine [Mass ratio] 29.9 mg/mg 10- [facility] Laboratory - Hematology and Cell countsOrdered By: Walter Becker on 04-09-2023 Erythrocyte distribution width (RBC) [Entitic vol] 46.8 fL 35.1-43.9 [facility] Erythrocyte distribution width (RBC) [Ratio] 14.6 % 11.6-14.6 [facility] MCH (RBC) [Entitic mass] 27.2 pg 27.0-32.0 [facility] MCHC Auto (RBC) [Mass/Vol]Or dered By: Walter Becker on 04-09-2023 MCHC (RBC) [Mass/Vol] 31.4 g/dL 32-36 [facility] No Panel InformationOrdered By: Walter Becker on 04-09-2023 Estimated GFR (MDRD) Amer 101 mL/min >60 [facility] Comment on above: GFR Calc Estimated GFR (MDRD) Non-Af Amer 84 mL/min >60 [facility] Comment on above: Non- GFR Calc 27.2 pg 27.0-32.0 [facility] 14.6 % 11.6-14.6 [facility] 46.8 fl 35.1-43.9 [facility] 84 mL/min >60 [facility] 101 mL/min >60 [facility] 29.9 RATIO 10- [facility] 2.9 g/dL 2.2-4.2 [facility] 105 U/L 45-117 [facility] 22 U/L 16-61 [facility] 31.0 mmol/L 21.0-32.0 [facility] Platelets bldOrdered By: Crystal Becker on 04-09-2023 Platelets (Bld) [#/Vol] 229 10*3/uL 150-450 [facility] Serum or plasma albumin antoine urement (mass/volume)Ordered By: Walter Becker on 04-09-2023 Albumin [Mass/Vol] 2.9 g/dL 3.2-5.0 [facility] Serum or plasma albumin/glob ulin mass ratioOrdered By: Walter Becker on 04-09-2023 Albumin/Globulin [Mass ratio] 1.0 {ratio} 0.9-2.4 [facility] Serum or plasma calcium antoine urement (mass/volume)Ordered By: Walter Becker on 04-09-2023 Calcium [Mass/Vol] 9.0 mg/dL 8.5-10.1 [facility] Serum or plasma creatinine m easurement (mass/volume)Ordered By: Walter Becker on 04-09-2023 Creatinine [Mass/Vol] 0.94 mg/dL 0.70-1.30 [facility] Comment on above: The validity of the calculated GFR & GFRAA in patients over 70 years has not been determined. Clinical correlation is essential. Serum or plasma urea nitroge n measurement (mass/volume)Ordered By: Walter Becker on 04-09-2023 Urea nitrogen [Mass/Vol] 28 mg/dL 7-18 [facility] Thin prep Papanicolaou smear with manual screeningOrdered By: Walter Becker on 04-09-2023 Thin prep Papanicolaou smear with manual screening 7 U/L 15-37 [facility] Thin prep Papanicolaou smear with manual screening 4 5-15 [facility] Laboratory - CoagulationOrde red By: Walter Becker on 04-08-2023 INR Coag (Bld) [Relative time] 2.4 {INR} [facility] Comment on above: Critical Value > 4.0 No Panel InformationOrdered By: Walter Becker on 04-08-2023 2.4 [facility] Whole blood prothrombin time Ordered By: Walter Becker on 04-08-2023 PT Coag (Bld) [Time] 25.9 s 11.7-14.9 [facility] - CoagulationOrde red By: Walter Becker on 04-01-2023 INR Coag (Bld) [Relative time] 1.9 {INR} [facility] Comment on above: Critical Value > 4.0 No Panel InformationOrdered By: Walter Becker on 04-01-2023 1.9 [facility] Whole blood prothrombin time Ordered By: Walter Becker on 04-01-2023 PT Coag (Bld) [Time] 21.0 s 11.7-14.9 [facility] - CoagulationOrde red By: Walter Becker on 03-25-2023 INR Coag (Bld) [Relative time] 1.9 {INR} [facility] Comment on above: Critical Value > 4.0 No Panel InformationOrdered By: Walter Becker on 03-25-2023 1.9 [facility] Whole blood prothrombin time Ordered By: Walter Becker on 03-25-2023 PT Coag (Bld) [Time] 21.1 s 11.7-14.9 [facility] INR in Blood by Coagulation assayOrdered By: Walter Becker on 03-11-2023 INR Coag (Bld) [Relative time] 2.4 {INR} [facility] - CoagulationOrde red By: Walter Becker on 03-11-2023 PT Coag (PPP) [Time] 26.6 s 11.7-14.9 [facility] No Panel InformationOrdered By: Walter Becker on 03-11-2023 26.6 SECONDS 11.7-14.9 [facility] Whole blood hemoglobin A1c/t otal hemoglobin ratio (mass fraction)Ordered By: Walter Becker on 03-11-2023 HbA1c (Bld) [Mass fraction] 5.5 % 3.8-5.6 [facility] Comment on above: Normal < 5.7 % Predi abetic 5.7 - 6.4 % Diabetic >or= 6.5 % Please note range changes. Basophil percentageOrdered B y: Walter Becker on 03-04-2023 Basophil percentage 114 mg/dL 74-106 [facility] Basophil percentage 5.8 g/dL 6.4-8.2 [facility] Basophil percentage 0.30 mg/dL 0.20-1.00 [facility] Basophil percentage 139 mmol/L 136-145 [facility] Basophil percentage 4.0 mmol/L 3.5-5.1 [facility] Basophil percentage 106 mmol/L 98-107 [facility] Bilirubin [Mass/Vol] 0.30 mg/dL 0.20-1.00 [facility] Comment on above: For patients on eltr ombopag therapy, use of Dimension [place] TBIL is not recommended. Chloride [Moles/Vol] 106 mmol/L 98-107 [facility] Glucose [Mass/Vol] 114 mg/dL 74-106 [facility] Comment on above: Fasting Glucose resu lt from 100 to 125 mg/dL suggests IMPAIRED HOMEOSTASIS per A.D.A. criteria. Potassium [Moles/Vol] 4.0 mmol/L 3.5-5.1 [facility] Protein [Mass/Vol] 5.8 g/dL 6.4-8.2 [facility] Sodium [Moles/Vol] 139 mmol/L 136-145 [facility] Blood hemoglobin measurement (mass/volume)Ordered By: Walter Becker on 03-04-2023 Hemoglobin (Bld) [Mass/Vol] 10.6 g/dL 13.0-16. 5 [facility] Hematocrit Auto (Bld) [Volum e fraction]Ordered By: Walter Becker on 03-04-2023 Hematocrit (Bld) [Volume fraction] 35.7 % 40-54 [facility] INR in Blood by Coagulation assayOrdered By: Walter Becker on 03-04-2023 INR Coag (Bld) [Relative time] 2.3 {INR} [facility] Laboratory - Chemistry and C hemistry - challengeOrdered By: Walter Becker on 03-04-2023 ALP [Catalytic activity/Vol] 92 U/L 45-117 [facility] ALT [Catalytic activity/Vol] 25 U/L 16-61 [facility] CO2 [Moles/Vol] 28.0 mmol/L 21.0-32.0 [facility] Globulin (S) [Mass/Vol] 3.0 g/dL 2.2-4.2 [facility] Urea nitrogen/Creatinine [Mass ratio] 33.0 mg/mg 10-20 [facility] Laboratory - CoagulationOrde red By: Walter Becker on 03-04-2023 PT Coag (PPP) [Time] 25.8 s 11.7-14.9 [facility] No Panel InformationOrdered By: Walter Becker on 03-04-2023 Estimated GFR (MDRD) Amer 88 mL/min >60 [facility] Comment on above: GFR Calc Estimated GFR (MDRD) Non-Af Amer 72 mL/min >60 [facility] Comment on above: Non- GFR Calc 25.8 SECONDS 11.7-14.9 [facility] 72 mL/min >60 [facility] 88 mL/min >60 [facility] 33.0 RATIO 10- [facility] 3.0 g/dL 2.2-4.2 [facility] 92 U/L 45-117 [facility] 25 U/L 16- [facility] 28.0 mmol/L 21.0-32.0 [facility] Serum or plasma albumin antoine urement (mass/volume)Ordered By: Walter Becker on 03-04-2023 Albumin [Mass/Vol] 2.8 g/dL 3.2-5.0 [facility] Serum or plasma albumin/glob ulin mass ratioOrdered By: Walter Becker on 03-04-2023 Albumin/Globulin [Mass ratio] 0.9 {ratio} 0.9-2.4 [facility] Serum or plasma calcium antoine urement (mass/volume)Ordered By: Walter Becker on 03-04-2023 Calcium [Mass/Vol] 9.1 mg/dL 8.5-10.1 [facility] Serum or plasma creatinine m easurement (mass/volume)Ordered By: Walter Becker on 03-04-2023 Creatinine [Mass/Vol] 1.06 mg/dL 0.70-1.30 [facility] Comment on above: The validity of the calculated GFR & GFRAA in patients over 70 years has not been determined. Clinical correlation is essential. Serum or plasma urea nitroge n measurement (mass/volume)Ordered By: Walter Becker on 03-04-2023 Urea nitrogen [Mass/Vol] 35 mg/dL 7-18 [facility] Thin prep Papanicolaou smear with manual screeningOrdered By: Walter Becker on 03-04-2023 Thin prep Papanicolaou smear with manual screening 12 U/L 15-37 [facility] Thin prep Papanicolaou smear with manual screening 5 5-15 [facility] Laboratory - CoagulationOrde red By: Walter Becker on 03-01-2023 INR Coag (Bld) [Relative time] 2.2 {INR} [facility] Comment on above: Critical Value > 4.0 No Panel InformationOrdered By: Walter Becker on 03-01-2023 2.2 [facility] Whole blood prothrombin time Ordered By: Walter Becker on 03-01-2023 PT Coag (Bld) [Time] 24.4 s 11.7-14.9 [facility] Blood hemoglobin measurement (mass/volume)Ordered By: Walter Becker on 02-25-2023 Hemoglobin (Bld) [Mass/Vol] 11.0 g/dL 13.0-16. 5 [facility] Hematocrit Auto (Bld) [Volum e fraction]Ordered By: Walter Becker on 02-25-2023 Hematocrit (Bld) [Volume fraction] 36.8 % 40-54 [facility] INR in Blood by Coagulation assayOrdered By: Walter Becker on 02-25-2023 INR Coag (Bld) [Relative time] 2.6 {INR} [facility] Laboratory - CoagulationOrde red By: Walter Becker on 02-25-2023 PT Coag (PPP) [Time] 28.0 s 11.7-14.9 [facility] No Panel InformationOrdered By: Walter Becker on 02-25-2023 28.0 SECONDS 11.7-14.9 [facility] Laboratory - CoagulationOrde red By: Walter Becker on 02-22-2023 INR Coag (Bld) [Relative time] 2.6 {INR} [facility] Comment on above: Critical Value > 4.0 No Panel InformationOrdered By: Walter Becker on 02-22-2023 2.6 [facility] Whole blood prothrombin time Ordered By: Walter Becker on 02-22-2023 PT Coag (Bld) [Time] 28.4 s 11.7-14.9 [facility] No Panel InformationOrdered By: Walter Becker on 02-20-2023 2.9 [facility] Whole blood prothrombin time Ordered By: Walter Becker on 02-20-2023 PT Coag (Bld) [Time] 30.7 s 11.7-14.9 [facility] Blood hemoglobin measurement (mass/volume)Ordered By: Walter Becker on 02-18-2023 Hemoglobin (Bld) [Mass/Vol] 8.8 g/dL 13.0-16. 5 [facility] Hematocrit Auto (Bld) [Volum e fraction]Ordered By: Walter Becker on 02-18-2023 Hematocrit (Bld) [Volume fraction] 28.2 % 40-54 [facility] INR in Blood by Coagulation assayOrdered By: Walter Becker on 02-18-2023 INR Coag (Bld) [Relative time] 2.8 {INR} [facility] No Panel InformationOrdered By: Walter Becker on 02-18-2023 29.5 SECONDS 11.7-14.9 [facility] No Panel InformationOrdered By: Walter Becker on 02-14-2023 2.2 [facility] Whole blood prothrombin time Ordered By: Walter Becker on 02-14-2023 PT Coag (Bld) [Time] 24.3 s 11.7-14.9 [facility] Absolute lymphocyte countOrd ered By: Gabriel Giraldo on 02-13-2023 Lymphocytes Auto (Unsp spec) [#/Vol] 0.84 10*3/uL 0.83-4.51 [facility] Basophil percentageOrdered B y: Gabriel Giraldo on 02-13-2023 Basophils (Bld) [#/Vol] 5.4 10*3/uL 4.4-11.0 [facility] Basophils (Bld) [#/Vol] 3.6 10*3/uL 2.0-7.7 [facility] Basophils/100 WBC (Bld) 67.5 % 47-70 [facility] Basophils/100 WBC (Bld) 4.1 % 0-5 [facility] Basophils/100 WBC (Bld) 0.4 % 0-1 [facility] Blood erythrocytes count (nu mber/volume)Ordered By: Gabriel Giraldo on 02-13-2023 RBC (Bld) [#/Vol] 2.76 10*6/uL 4.6-6.2 [facility] Blood hemoglobin measurement (mass/volume)Ordered By: Gabriel Giraldo on 02-13-2023 Hemoglobin (Bld) [Mass/Vol] 7.5 g/dL 13.0-16. 5 [facility] Blood lymphocytes/100 leukoc ytesOrdered By: Gabriel Giraldo on 02-13-2023 Lymphocytes/100 WBC (Bld) 15.7 % 19-41 [facility] Blood monocytes/100 leukocyt esOrdered By: Gabriel Giraldo on 02-13-2023 Monocytes/100 WBC (Bld) 11.2 % 0-10 [facility] Blood platelet mean volumeOr dered By: Gabriel Giraldo on 02-13-2023 Platelet mean volume (Bld) [Entitic vol] 9.2 fL 6.2-12.0 [facility] COVID-19 virus antigen assay Ordered By: Gabriel Giraldo on 02-13-2023 SARS-CoV-2 (COVID-19) Ag IA.rapid Ql (Resp) [facility] SARS-CoV-2 (COVID-19) Ag IA.rapid Ql (Resp) [facility] Determination of erythrocyte mean corpuscular volume (MCV)Ordered By: Gabriel Giraldo on 02-13-2023 MCV (RBC) [Entitic vol] 88.4 fL 80-94 [facility] Glucose Glucometer (BldC) [M ass/Vol]Ordered By: Gabriel Giraldo on 02-13-2023 Glucose [Mass/Vol] 146 mg/dL 74-106 [facility] Hematocrit Auto (Bld) [Volum e fraction]Ordered By: Gabriel Giraldo on 02-13-2023 Hematocrit (Bld) [Volume fraction] 24.4 % 40-54 [facility] MCHC Auto (RBC) [Mass/Vol]Or dered By: Gabriel Giraldo on 02-13-2023 MCHC (RBC) [Mass/Vol] 30.7 g/dL 32-36 [facility] No Panel InformationOrdered By: Gabriel Giraldo on 02-13-2023 27.2 pg 27.0-32.0 [facility] 16.6 % 11.6-14.6 [facility] 54.5 fl 35.1-43.9 [facility] 1.100 % 0.0-0.9 [facility] 0.9 % 0-5 [facility] Platelets bldOrdered By: Elis Giraldo on 02-13-2023 Platelets (Bld) [#/Vol] 194 10*3/uL 150-450 [facility] INR in Blood by Coagulation assayOrdered By: Gabriel Giraldo on 02-12-2023 INR Coag (Bld) [Relative time] 1.6 {INR} [facility] No Panel InformationOrdered By: Smith Leija on 02-12-2023 No growth in 5 days. [facility] No growth in 5 days. [facility] No Panel InformationOrdered By: Gabriel Giraldo on 02-12-2023 19.3 SECONDS 11.7-14.9 [facility] Basophil percentageOrdered B y: Dandy Sauer on 02-11-2023 Basophil percentage 2.2 mmol/L 0.4-2.0 [facility] Basophil percentage 2.8 mmol/L 0.4-2.0 [facility] Basophil percentageOrdered B y: Walter Becker on 02-11-2023 Basophil percentage 168 mg/dL 74-106 [facility] Basophil percentage 135 mmol/L 136-145 [facility] Basophil percentage 3.7 mmol/L 3.5-5.1 [facility] Basophil percentage 103 mmol/L 98-107 [facility] Basophils (Bld) [#/Vol] 10.2 10*3/uL 4.4-11.0 [facility] Blood erythrocytes count (nu mber/volume)Ordered By: Walter Becker on 02-11-2023 RBC (Bld) [#/Vol] 3.16 10*6/uL 4.6-6.2 [facility] Blood hemoglobin measurement (mass/volume)Ordered By: Walter Becker on 02-11-2023 Hemoglobin (Bld) [Mass/Vol] 8.7 g/dL 13.0-16. 5 [facility] Blood platelet mean volumeOr dered By: Walter Becker on 02-11-2023 Platelet mean volume (Bld) [Entitic vol] 9.3 fL 6.2-12.0 [facility] Determination of erythrocyte mean corpuscular volume (MCV)Ordered By: Walter Becker on 02-11-2023 MCV (RBC) [Entitic vol] 87.0 fL 80-94 [facility] Hematocrit Auto (Bld) [Volum e fraction]Ordered By: Walter Becker on 02-11-2023 Hematocrit (Bld) [Volume fraction] 27.5 % 40-54 [facility] INR in Blood by Coagulation assayOrdered By: Walter Becker on 02-11-2023 INR Coag (Bld) [Relative time] 1.5 {INR} [facility] MCHC Auto (RBC) [Mass/Vol]Or dered By: Walter Becker on 02-11-2023 MCHC (RBC) [Mass/Vol] 31.6 g/dL 32-36 [facility] No Panel InformationOrdered By: Walter Becker on 02-11-2023 27.5 pg 27.0-32.0 [facility] 17.3 % 11.6-14.6 [facility] 55.7 fl 35.1-43.9 [facility] 18.2 SECONDS 11.7-14.9 [facility] 67 mL/min >60 [facility] 81 mL/min >60 [facility] 21.1 RATIO 10-20 [facility] 27.0 mmol/L 21.0-32.0 [facility] Platelets bldOrdered By: Crystal Becker on 02-11-2023 Platelets (Bld) [#/Vol] 200 10*3/uL 150-450 [facility] Serum or plasma calcium antoine urement (mass/volume)Ordered By: Walter Becker on 02-11-2023 Calcium [Mass/Vol] 8.7 mg/dL 8.5-10.1 [facility] Serum or plasma creatinine m easurement (mass/volume)Ordered By: Walter Becker on 02-11-2023 Creatinine [Mass/Vol] 1.14 mg/dL 0.70-1.30 [facility] Serum or plasma urea nitroge n measurement (mass/volume)Ordered By: Walter Becker on 02-11-2023 Urea nitrogen [Mass/Vol] 24 mg/dL 7-18 [facility] Thin prep Papanicolaou smear with manual screeningOrdered By: Walter Becker on 02-11-2023 Thin prep Papanicolaou smear with manual screening 5 5-15 [facility] Absolute lymphocyte countOrd ered By: Geremias Carey on 02-10-2023 Lymphocytes Auto (Unsp spec) [#/Vol] 0.46 10*3/uL 0.83-4.51 [facility] Bacteria identified Cx Nom ( U)Ordered By: Geremias Carey on 02-10-2023 Culture, urine Klebsiella pneumonia e sp pneum [facility] Culture, urine Klebsiella pneumonia e sp pneum [facility] Basophil percentageOrdered B y: Geremias Carey on 02-10-2023 Basophil percentage 1.9 mmol/L 0.4-2.0 [facility] Basophil percentage 25-50 SEEN /hpf 0-5 [facility] Basophil percentage 158 mg/dL 74-106 [facility] Basophil percentage 5.6 g/dL 6.4-8.2 [facility] Basophil percentage 0.90 mg/dL 0.20-1.00 [facility] Basophil percentage 136 mmol/L 136-145 [facility] Basophil percentage 3.7 mmol/L 3.5-5.1 [facility] Basophil percentage 103 mmol/L 98-107 [facility] Basophils (Bld) [#/Vol] 10.8 10*3/uL 4.4-11.0 [facility] Basophils (Bld) [#/Vol] 9.2 10*3/uL 2.0-7.7 [facility] Basophils/100 WBC (Bld) 84.8 % 47-70 [facility] Basophils/100 WBC (Bld) 0.2 % 0-5 [facility] Basophils/100 WBC (Bld) 0.1 % 0-1 [facility] Bilirubin Test strip Ql (U)O rdered By: Geremias Carey on 02-10-2023 Bilirubin Ql (U) Negative Negative [facility] Blood erythrocytes count (nu mber/volume)Ordered By: Geremias Carey on 02-10-2023 RBC (Bld) [#/Vol] 3.20 10*6/uL 4.6-6.2 [facility] Blood hemoglobin measurement (mass/volume)Ordered By: Geremias Carey on 02-10-2023 Hemoglobin (Bld) [Mass/Vol] 8.8 g/dL 13.0-16. 5 [facility] Blood lymphocytes/100 leukoc ytesOrdered By: Geremias Carey on 02-10-2023 Lymphocytes/100 WBC (Bld) 4.3 % 19-41 [facility] Blood manual differential co mment interpretation (narrative result)Ordered By: Geremias Carey on 02-10-2023 Manual differential comment Ori (Bld) [Interp] SCANNED [facility] Blood monocytes/100 leukocyt esOrdered By: Geremias Carey on 02-10-2023 Monocytes/100 WBC (Bld) 9.8 % 0-10 [facility] Blood platelet mean volumeOr dered By: Geremias Carey on 02-10-2023 Platelet mean volume (Bld) [Entitic vol] 9.3 fL 6.2-12.0 [facility] Determination of erythrocyte mean corpuscular volume (MCV)Ordered By: Geremias Carey on 02-10-2023 MCV (RBC) [Entitic vol] 87.8 fL 80-94 [facility] Direct bilirubinOrdered By: Geremias Carey on 02-10-2023 Bilirubin.direct [Mass/Vol] 0.43 mg/dL 0.00-0.3 0 [facility] Hematocrit Auto (Bld) [Volum e fraction]Ordered By: Geremias Carey on 02-10-2023 Hematocrit (Bld) [Volume fraction] 28.1 % 40-54 [facility] INR in Blood by Coagulation assayOrdered By: Geremias Carey on 02-10-2023 INR Coag (Bld) [Relative time] 1.4 {INR} [facility] Influenza virus A and B and SARS-CoV-2 (COVID-19) Ag panel - Upper respiratory specimOrdered By: Geremias Carey on 02-10-2023 SARS-CoV-2 (COVID-19) RNA ANGELY+probe Ql (Resp) [facility] SARS-CoV-2 (COVID-19) RNA ANGELY+probe Ql (Resp) [facility] Ketones Test strip Ql (U)Ord ered By: Geremias Carey on 02-10-2023 Ketones Ql (U) 5 mg/dl Negative [facility] MCHC Auto (RBC) [Mass/Vol]Or dered By: Geremias Carey on 02-10-2023 MCHC (RBC) [Mass/Vol] 31.3 g/dL 32-36 [facility] Mucus LM Ql (Urine sed)Order ed By: Geremias Carey on 02-10-2023 Mucus Ql (Urine sed) 0 SEEN /hpf [facility] Nitrite Test strip Ql (U)Ord ered By: Geremias Carey on 02-10-2023 Nitrite Ql (U) Negative Negative [facility] No Panel InformationOrdered By: Geremias Carey on 02-10-2023 GNR lactose driller hand [facility] GNR lactose driller hand [facility] 27.5 pg 27.0-32.0 [facility] 17.3 % 11.6-14.6 [facility] 55.2 fl 35.1-43.9 [facility] 0.800 % 0.0-0.9 [facility] 0 % 0-5 [facility] 17.5 SECONDS 11.7-14.9 [facility] 42.1 Seconds 24.1-36.2 [facility] 70 mL/min >60 [facility] 85 mL/min >60 [facility] 66.18 ml/min [facility] 23.9 RATIO 10-20 [facility] 3.3 g/dL 2.2-4.2 [facility] 100 U/L 45-117 [facility] 18 U/L 16-61 [facility] 24.0 mmol/L 21.0-32.0 [facility] Platelets bldOrdered By: Luis Enrique Carey on 02-10-2023 Platelets (Bld) [#/Vol] 189 10*3/uL 150-450 [facility] Protein Test strip Ql (U)Ord ered By: Geremias Carey on 02-10-2023 Protein Ql (U) 100 mg/dl Negative [facility] Serum or plasma albumin antoine urement (mass/volume)Ordered By: Geremias Carey on 02-10-2023 Albumin [Mass/Vol] 2.3 g/dL 3.2-5.0 [facility] Serum or plasma calcium antoine urement (mass/volume)Ordered By: Geremias Carey on 02-10-2023 Calcium [Mass/Vol] 8.3 mg/dL 8.5-10.1 [facility] Serum or plasma creatinine m easurement (mass/volume)Ordered By: Geremias Carey on 02-10-2023 Creatinine [Mass/Vol] 1.09 mg/dL 0.70-1.30 [facility] Serum or plasma urea nitroge n measurement (mass/volume)Ordered By: Geremias Carey on 02-10-2023 Urea nitrogen [Mass/Vol] 26 mg/dL 7-18 [facility] Serum procalcitonin measurem entOrdered By: Geremias Carey on 02-10-2023 Procalcitonin [Mass/Vol] 1.43 ng/mL 0.00-0.09 [facility] Squamous epithelial cells de tection in urine sediment by light microscopyOrdered By: Geremias Carey on 02-10-2023 Epithelial cells.squamous LM Ql (Urine sed) 0 SEEN /hpf 0-5 [facility] Thin prep Papanicolaou smear with manual screeningOrdered By: Geremias Carey on 02-10-2023 Thin prep Papanicolaou smear with manual screening 10 U/L 15-37 [facility] Thin prep Papanicolaou smear with manual screening 9 5-15 [facility] Urine blood detectionOrdered By: Geremias Carey on 02-10-2023 RBC Ql (U) 250 /ul Negative [facility] RBC Ql (U) 25-50 SEEN /hpf 0-5 [facility] Urine clarityOrdered By: Luis Enrique Carey on 02-10-2023 Clarity (U) Sl. Cloudy Clear [facility] Urine color determinationOrd ered By: Geremias Carey on 02-10-2023 Color (U) Yellow Yellow [facility] Urine glucose detectionOrder ed By: Geremias Carey on 02-10-2023 Glucose Ql (U) Normal mg/dl Normal [facility] Urine leukocyte esterase det ection by dipstickOrdered By: Geremias Carey on 02-10-2023 Leukocyte esterase Test strip Ql (U) 500 /ul Negative [facility] Urine pHOrdered By: Geremias torrez on 02-10-2023 pH (U) 5.0 [pH] 5.0 - 8.0 [facility] Urine sediment bacteria coun t by microscopy (number/high power field)Ordered By: Geremias Carey on 02-10-2023 Bacteria LM.HPF (Urine sed) [#/Area] 4 /[HPF] None Seen [facility] Urine specific gravity measu rementOrdered By: Geremias Carey on 02-10-2023 Specific gravity (U) [Rel density] 1.015 1.002-1.03 0 [facility] Urobilinogen Auto test strip Ql (U)Ordered By: Geremias Carey on 02-10-2023 Urobilinogen Ql (U) Normal mg/dl Normal [facility] Blood hemoglobin measurement (mass/volume)Ordered By: Walter Becker on 02-07-2023 Hemoglobin (Bld) [Mass/Vol] 8.8 g/dL 13.0-16. 5 [facility] Hematocrit Auto (Bld) [Volum e fraction]Ordered By: Walter Becker on 02-07-2023 Hematocrit (Bld) [Volume fraction] 29.0 % 40-54 [facility] COVID-19 virus antigen assay Ordered By: Caryl Mcdermott on 02-05-2023 SARS-CoV-2 (COVID-19) Ag IA.rapid Ql (Resp) [facility] SARS-CoV-2 (COVID-19) Ag IA.rapid Ql (Resp) [facility] Glucose Glucometer (BldC) [M ass/Vol]Ordered By: Caryl Mcdermott on 02-05-2023 Glucose [Mass/Vol] 163 mg/dL 74-106 [facility] Absolute lymphocyte countOrd ered By: Yisel Rendon on 02-04-2023 Lymphocytes Auto (Unsp spec) [#/Vol] 1.39 10*3/uL 0.83-4.51 [facility] Basophil percentageOrdered B y: Yisel Rendon on 02-04-2023 Basophil percentage 151 mg/dL 74-106 [facility] Basophil percentage 141 mmol/L 136-145 [facility] Basophil percentage 3.5 mmol/L 3.5-5.1 [facility] Basophil percentage 110 mmol/L 98-107 [facility] Basophils (Bld) [#/Vol] 8.1 10*3/uL 4.4-11.0 [facility] Basophils (Bld) [#/Vol] 5.8 10*3/uL 2.0-7.7 [facility] Basophils/100 WBC (Bld) 71.5 % 47-70 [facility] Basophils/100 WBC (Bld) 2.6 % 0-5 [facility] Basophils/100 WBC (Bld) 0.1 % 0-1 [facility] Blood erythrocytes count (nu mber/volume)Ordered By: Yisel Rendon on 02-04-2023 RBC (Bld) [#/Vol] 3.23 10*6/uL 4.6-6.2 [facility] Blood hemoglobin measurement (mass/volume)Ordered By: Yisel Rendon on 02-04-2023 Hemoglobin (Bld) [Mass/Vol] 8.8 g/dL 13.0-16. 5 [facility] Blood lymphocytes/100 leukoc ytesOrdered By: Yisel Rendon on 02-04-2023 Lymphocytes/100 WBC (Bld) 17.2 % 19-41 [facility] Blood monocytes/100 leukocyt esOrdered By: Yisel Rendon on 02-04-2023 Monocytes/100 WBC (Bld) 6.3 % 0-10 [facility] Blood platelet mean volumeOr dered By: Yisel Rendon on 02-04-2023 Platelet mean volume (Bld) [Entitic vol] 8.8 fL 6.2-12.0 [facility] Determination of erythrocyte mean corpuscular volume (MCV)Ordered By: Yisel Rendon on 02-04-2023 MCV (RBC) [Entitic vol] 89.5 fL 80-94 [facility] Hematocrit Auto (Bld) [Volum e fraction]Ordered By: Yisel Rendon on 02-04-2023 Hematocrit (Bld) [Volume fraction] 28.9 % 40-54 [facility] MCHC Auto (RBC) [Mass/Vol]Or dered By: Yisel Rendon on 02-04-2023 MCHC (RBC) [Mass/Vol] 30.4 g/dL 32-36 [facility] No Panel InformationOrdered By: Yisel Rendon on 02-04-2023 27.2 pg 27.0-32.0 [facility] 17.8 % 11.6-14.6 [facility] 56.6 fl 35.1-43.9 [facility] 2.300 % 0.0-0.9 [facility] 0 % 0-5 [facility] 67 mL/min >60 [facility] 81 mL/min >60 [facility] 63.83 ml/min [facility] 10.6 RATIO 10-20 [facility] 25.0 mmol/L 21.0-32.0 [facility] Platelets bldOrdered By: José Luis Rendon on 02-04-2023 Platelets (Bld) [#/Vol] 341 10*3/uL 150-450 [facility] Serum or plasma calcium antoine urement (mass/volume)Ordered By: Yisel Rendon on 02-04-2023 Calcium [Mass/Vol] 8.4 mg/dL 8.5-10.1 [facility] Serum or plasma creatinine m easurement (mass/volume)Ordered By: Yisel Rendon on 02-04-2023 Creatinine [Mass/Vol] 1.13 mg/dL 0.70-1.30 [facility] Serum or plasma urea nitroge n measurement (mass/volume)Ordered By: Yisel Rendon on 02-04-2023 Urea nitrogen [Mass/Vol] 12 mg/dL 7-18 [facility] Thin prep Papanicolaou smear with manual screeningOrdered By: Yisel Rendon on 02-04-2023 Thin prep Papanicolaou smear with manual screening 6 5-15 [facility] Blood band neutrophil count as percentage of total leukocytesOrdered By: Yisel Rendon on 01-31-2023 Band form neutrophils/100 WBC (Bld) 3 % 0-5 [facility] Blood eosinophils/100 leukoc ytesOrdered By: Yisel Rendon on 01-31-2023 Eosinophils/100 WBC (Bld) 2 % 0-5 [facility] Blood lymphocytes/100 leukoc ytesOrdered By: Yisel Rendon on 01-31-2023 Lymphocytes/100 WBC (Bld) 22 % 19-41 [facility] Blood metamyelocytes/100 yolis kocytesOrdered By: Yisel Rendon on 01-31-2023 Metamyelocytes/100 WBC (Bld) 1 % 0-1 [facility] Blood monocytes/100 leukocyt esOrdered By: Yisel Rendon on 01-31-2023 Monocytes/100 WBC (Bld) 5 % 0-10 [facility] Blood platelet adequacy dete ction by light microscopyOrdered By: Yisel Rendon on 01-31-2023 Platelets LM Ql (Bld) ADEQUATE ADEQ [facility] Blood polychromasia detectio n by light microscopyOrdered By: Yisel Rendon on 01-31-2023 Polychromasia LM Ql (Bld) RARE [facility] Blood segmented neutrophils/ 100 leukocytesOrdered By: Yisel Rendon on 01-31-2023 Segmented neutrophils/100 WBC (Bld) 64 % 47-70 [facility] No Panel InformationOrdered By: Yisel Rendon on 01-31-2023 3 % 0-0 [facility] Review by pathologistOrdered By: Yisel Rendon on 01-31-2023 Pathologist review Ori (Unsp spec) [Interp] Reviewed [facility] Total cell countOrdered By: Yisel Rendon on 01-31-2023 Cells counted Molgen (Bld/Tiss) [#] 100 MANUAL DIFF [facility] Basophil percentageOrdered B y: Yisel Rendon on 01-30-2023 Basophil percentage 148 U/L 87-241 [facility] Blood manual differential co mment interpretation (narrative result)Ordered By: Yisel Rendon on 01-30-2023 Manual differential comment Ori (Bld) [Interp] SCANNED [facility] Hemoglobin in reticulocytes (mass per reticulocyte)Ordered By: Yisel Rendon on 01-30-2023 Hemoglobin (Reticulocytes) [Entitic mass] 22.8 pg 30-35 [facility] Hypochromatic red blood cell detectionOrdered By: Yisel Rendon on 01-30-2023 Hypochromia Ql (Bld) 1+ [facility] Iron measurement (mass/mass) Ordered By: Yisel Rendon on 01-30-2023 Iron (Unsp spec) [Mass/Mass] 28 ug/dL 65-175 [facility] No Panel InformationOrdered By: Yisel Rendon on 01-30-2023 RARE % [facility] 3.53 % 0.5-1.5 [facility] 40.30 % 3.00-15.90 [facility] 635 pg/mL 211-911 [facility] 166 ug/dL 250-450 [facility] Serum or plasma ferritin hank surement (mass/volume)Ordered By: Yisel Rendon on 01-30-2023 Ferritin [Mass/Vol] 138 ng/mL 26-388 [facility] Serum or plasma folate measu rement (mass/volume)Ordered By: Yisel Rendon on 01-30-2023 Folate [Mass/Vol] 4.60 ng/mL 3.1-55.4 [facility] Serum or plasma iron saturat ion measurement (mass fraction)Ordered By: Yisel Rendon on 01-30-2023 Iron saturation [Mass fraction] 16.9 % 15.0-55.0 [facility] No Panel InformationOrdered By: Yisel Rendon on 01-29-2023 RARE [facility] Vancomycin troughOrdered By: Karen Aly on 01-29-2023 Vancomycin trough [Mass/Vol] 7.8 ug/mL 5.0-15.0 [facility] Basophil percentageOrdered B y: Karen Aly on 01-28-2023 Basophil percentage 5.8 g/dL 6.4-8.2 [facility] Basophil percentage 0.70 mg/dL 0.20-1.00 [facility] No Panel InformationOrdered By: Karen Aly on 01-28-2023 3.8 g/dL 2.2-4.2 [facility] 81 U/L 45-117 [facility] 85 U/L 16-61 [facility] Serum or plasma albumin antoine urement (mass/volume)Ordered By: Karen Jermain on 01-28-2023 Albumin [Mass/Vol] 2.0 g/dL 3.2-5.0 [facility] Serum or plasma albumin/glob ulin mass ratioOrdered By: [facility] on 01-28-2023 Albumin/Globulin [Mass ratio] 0.5 {ratio} 0.9-2.4 [facility] Thin prep Papanicolaou smear with manual screeningOrdered By: [facility] on 01-28-2023 Thin prep Papanicolaou smear with manual screening 49 U/L 15-37 [facility] Absolute lymphocyte countOrd ered By: Syed Allen on 01-27-2023 Lymphocytes Auto (Unsp spec) [#/Vol] 1.35 10*3/uL 0.83-4.51 [facility] Basophil percentageOrdered B y: Karen Aly on 01-27-2023 Basophil percentage 2.6 mg/dL 2.5-4.9 [facility] Basophil percentageOrdered B y: Syed Alejandro on 01-27-2023 Basophils/100 WBC (Bld) 0.1 % 0-1 [facility] Bilirubin [Mass/Vol] 0.50 mg/dL 0.20-1.00 [facility] Comment on above: For patients on eltr ombopag therapy, use of Dimension [place] TBIL is not recommended. Chloride [Moles/Vol] 111 mmol/L 98-107 [facility] Eosinophils/100 WBC (Bld) 2.9 % 0-5 [facility] Glucose [Mass/Vol] 215 mg/dL 74-106 [facility] Comment on above: Glucose result great er than or equal to 200 mg/dLsuggests DIABETES MELLITUS per A.D.A. criteria. Neutrophils (Bld) [#/Vol] 8.0 10*3/uL 2.0-7.7 [facility] Neutrophils/100 WBC (Bld) 73.8 % 47-70 [facility] Potassium [Moles/Vol] 4.0 mmol/L 3.5-5.1 [facility] Protein [Mass/Vol] 5.3 g/dL 6.4-8.2 [facility] Sodium [Moles/Vol] 140 mmol/L 136-145 [facility] WBC (Bld) [#/Vol] 10.9 10*3/uL 4.4-11.0 [facility] Blood erythrocytes count (nu mber/volume)Ordered By: Syed Allen on 01-27-2023 RBC (Bld) [#/Vol] 2.91 10*6/uL 4.6-6.2 [facility] Blood hemoglobin measurement (mass/volume)Ordered By: Syed Allen on 01-27-2023 Hemoglobin (Bld) [Mass/Vol] 8.2 g/dL 13.0-16. 5 [facility] Blood lymphocytes/100 leukoc ytesOrdered By: Syed Allen on 01-27-2023 Lymphocytes/100 WBC (Bld) 12.4 % 19-41 [facility] Blood monocytes/100 leukocyt esOrdered By: Syed Allen on 01-27-2023 Monocytes/100 WBC (Bld) 8.2 % 0-10 [facility] Blood platelet mean volumeOr dered By: Syed Allen on 01-27-2023 Platelet mean volume (Bld) [Entitic vol] 9.9 fL 6.2-12.0 [facility] Determination of erythrocyte mean corpuscular volume (MCV)Ordered By: Syed Allen on 01-27-2023 MCV (RBC) [Entitic vol] 88.0 fL 80-94 [facility] Hematocrit Auto (Bld) [Volum e fraction]Ordered By: Syed Allen on 01-27-2023 Hematocrit (Bld) [Volume fraction] 25.6 % 40-54 [facility] INR in Blood by Coagulation assayOrdered By: Syed Allen on 01-27-2023 INR Coag (Bld) [Relative time] 1.6 {INR} [facility] Laboratory - Chemistry and C hemistry - challengeOrdered By: Syed Allen on 01-27-2023 ALP [Catalytic activity/Vol] 78 U/L 45-117 [facility] ALT [Catalytic activity/Vol] 81 U/L 16-61 [facility] CO2 [Moles/Vol] 25.0 mmol/L 21.0-32.0 [facility] Globulin (S) [Mass/Vol] 3.5 g/dL 2.2-4.2 [facility] Lipase [Catalytic activity/Vol] 233 U/L 13-75 [facility] Comment on above: Please note:LIPASE r evised reference range effective 22. New Lipase methodology. Expected to produce lower values than the previous assay method. NEW Reference Range: 13 - 75 U/L Urea nitrogen/Creatinine [Mass ratio] 20.4 mg/mg 10-20 [facility] Laboratory - CoagulationOrde red By: Syed Allen on 01-27-2023 PT Coag (PPP) [Time] 19.4 s 11.7-14.9 [facility] Laboratory - Hematology and Cell countsOrdered By: Syed Allen on 01-27-2023 Erythrocyte distribution width (RBC) [Entitic vol] 49.3 fL 35.1-43.9 [facility] Erythrocyte distribution width (RBC) [Ratio] 15.5 % 11.6-14.6 [facility] Immature granulocytes/100 WBC (Bld) 2.600 % 0.0-0.9 [facility] Comment on above: IG% - Immature Granu locytes (promyelocytes, myelocytes and metamyelocytes) > 1% indicates that a LEFT SHIFT is Present. MCH (RBC) [Entitic mass] 28.2 pg 27.0-32.0 [facility] Nucleated RBC/100 WBC (Bld) [Ratio] 0.2 % 0-5 [facility] MCHC Auto (RBC) [Mass/Vol]Or dered By: Syed Allen on 01-27-2023 MCHC (RBC) [Mass/Vol] 32.0 g/dL 32-36 [facility] No Panel InformationOrdered By: Karen Aly on 01-27-2023 Negative Negative [facility] 1.7 mg/dL 1.6-2.6 [facility] No Panel InformationOrdered By: Syed Allen on 01-27-2023 Estimated Creatinine Clearance Calc 50.80 ml/min [facility] Estimated GFR (MDRD) Amer 63 mL/min >60 [facility] Comment on above: GFR Calc Estimated GFR (MDRD) Non-Af Amer 52 mL/min >60 [facility] Comment on above: Non- GFR Calc 19.4 SECONDS 11.7-14.9 [facility] 233 U/L 13-75 [facility] Platelets bldOrdered By: Glenroy Allen on 01-27-2023 Platelets (Bld) [#/Vol] 259 10*3/uL 150-450 [facility] Serum or plasma albumin antoine urement (mass/volume)Ordered By: Syed Allen on 01-27-2023 Albumin [Mass/Vol] 1.8 g/dL 3.2-5.0 [facility] Serum or plasma albumin/glob ulin mass ratioOrdered By: Syed Allen on 01-27-2023 Albumin/Globulin [Mass ratio] 0.5 {ratio} 0.9-2.4 [facility] Serum or plasma calcium antoine urement (mass/volume)Ordered By: Syed Allen on 01-27-2023 Calcium [Mass/Vol] 8.3 mg/dL 8.5-10.1 [facility] Serum or plasma creatinine m easurement (mass/volume)Ordered By: Syed Allen on 01-27-2023 Creatinine [Mass/Vol] 1.42 mg/dL 0.70-1.30 [facility] Comment on above: The validity of the calculated GFR & GFRAA in patients over 70 years has not been determined. Clinical correlation is essential. Serum or plasma urea nitroge n measurement (mass/volume)Ordered By: Syed Allen on 01-27-2023 Urea nitrogen [Mass/Vol] 29 mg/dL 7-18 [facility] Serum procalcitonin measurem entOrdered By: Karen Aly on 01-27-2023 Procalcitonin [Mass/Vol] 0.12 ng/mL 0.00-0.09 [facility] Thin prep Papanicolaou smear with manual screeningOrdered By: Syed Allen on 01-27-2023 Thin prep Papanicolaou smear with manual screening 68 U/L 15-37 [facility] Thin prep Papanicolaou smear with manual screening 4 5-15 [facility] Urine Legionella pneumophila antigen detectionOrdered By: Karen Aly on 01-27-2023 L. pneumophila Ag Ql (U) [facility] Absolute lymphocyte countOrd ered By: Ryan Tinoco on 01-26-2023 Lymphocytes Auto (Unsp spec) [#/Vol] 0.69 10*3/uL 0.83-4.51 [facility] Basophil percentageOrdered B y: Karen White on 01-26-2023 Basophil percentage 2.4 mg/dL 2.5-4.9 [facility] Basophil percentageOrdered B y: Ryan Tinoco on 01-26-2023 Basophil percentage 235 mg/dL 74-106 [facility] Basophil percentage 143 mmol/L 136-145 [facility] Basophil percentage 3.8 mmol/L 3.5-5.1 [facility] Basophil percentage 114 mmol/L 98-107 [facility] Basophils (Bld) [#/Vol] 8.5 10*3/uL 4.4-11.0 [facility] Basophils (Bld) [#/Vol] 6.7 10*3/uL 2.0-7.7 [facility] Basophils/100 WBC (Bld) 0.1 % 0-1 [facility] Basophils/100 WBC (Bld) 78.4 % 47-70 [facility] Basophils/100 WBC (Bld) 1.6 % 0-5 [facility] Chloride [Moles/Vol] 114 mmol/L 98-107 [facility] Eosinophils/100 WBC (Bld) 1.6 % 0-5 [facility] Glucose [Mass/Vol] 235 mg/dL 74-106 [facility] Comment on above: Glucose result great er than or equal to 200 mg/dLsuggests DIABETES MELLITUS per A.D.A. criteria. Neutrophils (Bld) [#/Vol] 6.7 10*3/uL 2.0-7.7 [facility] Neutrophils/100 WBC (Bld) 78.4 % 47-70 [facility] Potassium [Moles/Vol] 3.8 mmol/L 3.5-5.1 [facility] Sodium [Moles/Vol] 143 mmol/L 136-145 [facility] WBC (Bld) [#/Vol] 8.5 10*3/uL 4.4-11.0 [facility] Blood erythrocytes count (nu mber/volume)Ordered By: Ryan Tinoco on 01-26-2023 RBC (Bld) [#/Vol] 3.06 10*6/uL 4.6-6.2 [facility] Blood hemoglobin measurement (mass/volume)Ordered By: Ryan Tinoco on 01-26-2023 Hemoglobin (Bld) [Mass/Vol] 8.6 g/dL 13.0-16. 5 [facility] Blood lymphocytes/100 leukoc ytesOrdered By: Ryan Tinoco on 01-26-2023 Lymphocytes/100 WBC (Bld) 8.1 % 19-41 [facility] Blood monocytes/100 leukocyt esOrdered By: Ryan Tinoco on 01-26-2023 Monocytes/100 WBC (Bld) 9.6 % 0-10 [facility] Blood platelet mean volumeOr dered By: Ryna Tinoco on 01-26-2023 Platelet mean volume (Bld) [Entitic vol] 9.9 fL 6.2-12.0 [facility] COVID-19 virus antigen assay Ordered By: Ryan Tinoco on 01-26-2023 SARS-CoV-2 (COVID-19) Ag IA.rapid Ql (Resp) [facility] SARS-CoV-2 (COVID-19) Ag IA.rapid Ql (Resp) [facility] Determination of erythrocyte mean corpuscular volume (MCV)Ordered By: Ryan Tinoco on 01-26-2023 MCV (RBC) [Entitic vol] 88.6 fL 80-94 [facility] Glucose Glucometer (BldC) [M ass/Vol]Ordered By: Ryan Tinoco on 01-26-2023 Glucose [Mass/Vol] 230 mg/dL 74-106 [facility] Comment on above: MANAGEMENT OF PATIEN T CARE PER NURSING PROTOCOL Hematocrit Auto (Bld) [Volum e fraction]Ordered By: Ryan Tinoco on 01-26-2023 Hematocrit (Bld) [Volume fraction] 27.1 % 40-54 [facility] Laboratory - Chemistry and C hemistry - challengeOrdered By: Ryan Tinoco on 01-26-2023 CO2 [Moles/Vol] 23.0 mmol/L 21.0-32.0 [facility] Urea nitrogen/Creatinine [Mass ratio] 18.8 mg/mg 10- [facility] Laboratory - Chemistry and C hemistry - challengeOrdered By: Karen Aly on 01-26-2023 Magnesium [Mass/Vol] 1.8 mg/dL 1.6-2.6 [facility] Laboratory - Hematology and Cell countsOrdered By: Ryan Tionco on 01-26-2023 Erythrocyte distribution width (RBC) [Entitic vol] 50.6 fL 35.1-43.9 [facility] Erythrocyte distribution width (RBC) [Ratio] 15.9 % 11.6-14.6 [facility] Immature granulocytes/100 WBC (Bld) 2.200 % 0.0-0.9 [facility] Comment on above: IG% - Immature Granu locytes (promyelocytes, myelocytes and metamyelocytes) > 1% indicates that a LEFT SHIFT is Present. MCH (RBC) [Entitic mass] 28.1 pg 27.0-32.0 [facility] Nucleated RBC/100 WBC (Bld) [Ratio] 0.5 % 0- [facility] MCHC Auto (RBC) [Mass/Vol]Or dered By: Ryan Tinoco on 01-26-2023 MCHC (RBC) [Mass/Vol] 31.7 g/dL 32-36 [facility] No Panel InformationOrdered By: Ryan Tinoco on 01-26-2023 Estimated Creatinine Clearance Calc 48.41 ml/min [facility] Estimated GFR (MDRD) Amer 59 mL/min >60 [facility] Comment on above: GFR Calc Estimated GFR (MDRD) Non-Af Amer 49 mL/min >60 [facility] Comment on above: Non- GFR Calc 28.1 pg 27.0-32.0 [facility] 15.9 % 11.6-14.6 [facility] 50.6 fl 35.1-43.9 [facility] 2.200 % 0.0-0.9 [facility] 0.5 % 0-5 [facility] 49 mL/min >60 [facility] 59 mL/min >60 [facility] 48.41 ml/min [facility] 18.8 RATIO 05-03 [facility] 23.0 mmol/L 21.0-32.0 [facility] No Panel InformationOrdered By: Karen Aly on 01-26-2023 1.8 mg/dL 1.6-2.6 [facility] Platelets bldOrdered By: Jaziel Tinoco on 01-26-2023 Platelets (Bld) [#/Vol] 217 10*3/uL 150-450 [facility] Serum or plasma calcium antoine urement (mass/volume)Ordered By: Ryan Tinoco on 01-26-2023 Calcium [Mass/Vol] 8.5 mg/dL 8.5-10.1 [facility] Serum or plasma creatinine m easurement (mass/volume)Ordered By: Ryan Tinoco on 01-26-2023 Creatinine [Mass/Vol] 1.49 mg/dL 0.70-1.30 [facility] Comment on above: The validity of the calculated GFR & GFRAA in patients over 70 years has not been determined. Clinical correlation is essential. Serum or plasma urea nitroge n measurement (mass/volume)Ordered By: Ryan Tinoco on 01-26-2023 Urea nitrogen [Mass/Vol] 28 mg/dL 7-18 [facility] Thin prep Papanicolaou smear with manual screeningOrdered By: Ryan Tinoco on 01-26-2023 Thin prep Papanicolaou smear with manual screening 6 5-15 [facility] INR in Blood by Coagulation assayOrdered By: Ryan Tinoco on 01-25-2023 INR Coag (Bld) [Relative time] 1.6 {INR} [facility] Laboratory - CoagulationOrde red By: Ryan Tinoco on 01-25-2023 PT Coag (PPP) [Time] 19.1 s 11.7-14.9 [facility] No Panel InformationOrdered By: Ryan Tinoco on 01-25-2023 19.1 SECONDS 11.7-14.9 [facility] Albumin Elph [Mass/Vol]Order ed By: Liu Hackett on 01-22-2023 Albumin [Mass/Vol] 2.5 g/dL 2.9-4.4 [facility] Aldolase ser/plasOrdered By: Liu Hackett on 07-11-2023 Aldolase [Catalytic activity/Vol] 1.5 mU/mL 3.3-10.3 [facility] Comment on above: Performed at: - [address] [id number] Director: Ernie Jacob PhD, Phone: [phone] at: [facility] [id number] Director: Lindsay Kearns MD, Phone: [phone] Atypical perinuclear antineu trophil cytoplasmic antibodies measurementOrdered By: Liu Hackett on 01-22-2023 Neutrophil cytoplasmic Ab.perinuclear.atypical IF (S) [Titer] <1:20 titer Neg:<1:20 [facility] Comment on above: The atypical pANCA p attern has been observed in asignificant percentage of patients with ulcerative colitis,primary sclerosing cholangitis and autoimmune hepatitis. Basophil percentageOrdered B y: Liu Hackett on 01-22-2023 Basophil percentage < 0.2 AI 0.0-0.9 [facility] Basophil percentage 3.4 mmol/L 0.4-2.0 [facility] Basophil percentage 136 U/L 87-241 [facility] Lactate [Moles/Vol] 3.4 mmol/L 0.4-2.0 [facility] Comment on above: Critical Result(s) C alled at: 12:30:42 01/22/2023 by: Aruna Morales. Inocencio Martin RN (ICU). Results read back by same. LDH [Catalytic activity/Vol] 136 U/L 87-241 [facility] Blood polychromasia detectio n by light microscopyOrdered By: Jesus Burnham on 01-22-2023 Polychromasia LM Ql (Bld) 1+ [facility] Interpretation of serum or p lasma protein pattern by immunofixation (narrative resultOrdered By: Liu Hackett on 01-22-2023 Protein Fractions Immunofixation Ori [Interp] See comment [facility] Comment on above: NOT OBSERVED Laboratory - Chemistry and C hemistry - challengeOrdered By: Liu Hackett on 01-22-2023 CK [Catalytic activity/Vol] 31 U/L 39-308 [facility] Laboratory - Hematology and Cell countsOrdered By: Jesus Burnham on 01-22-2023 Anisocytosis Ql (Bld) 1+ [facility] No Panel InformationOrdered By: Liu Hackett on 01-22-2023 Addendum Document Comment . [facility] Comment on above: Protein electrophore sis scan will follow via computer,mail, or cleaner wall delivery. Centromere B Antibody <0.2 AI 0.0-0.9 [facility] Immunoglobulin E 399 IU/mL 6-495 [facility] Immunoglobulin G4 8 mg/dL 2-96 [facility] PERFECT BINDER SETTER Antibody <0.2 AI 0.0-0.9 [facility] 31 U/L 39-308 [facility] 8 mg/dL 2-96 [facility] 399 IU/mL 6-495 [facility] <0.2 AI 0.0-0.9 [facility] No Panel InformationOrdered By: Jesus Burnham on 01-22-2023 1+ [facility] Review by pathologistOrdered By: Jesus Burnham on 01-22-2023 Pathologist review Ori (Unsp spec) [Interp] Reviewed [facility] Comment on above: Previous reported re sult: Corie sr Edited by: KEN on 01/23/23:1008Neutrophilic leukocytosis with left shift.Normocytic anemia.Clinical correlation necessary.Evaristo Dela Cruz M.D. 01/23/23 AMENDED REPORT 01/23/23 1008 PATH REV previously reported as: Corie sr Serum DNA double strand anti body assay (units/volume)Ordered By: Liu Hackett on 01-22-2023 DNA double strand Ab Qn (S) [IU]/mL 0-9 [facility] Comment on above: Negative <5 Equivoca l 5 - 9 Positive >9 Serum IgG subclass 1 measure ment (mass/volume)Ordered By: Liu Hackett on 01-22-2023 IgG subclass 1 (S) [Mass/Vol] 237 mg/dL 248-810 [facility] Serum IgG subclass 2 measure ment (mass/volume)Ordered By: Liu Hackett on 01-22-2023 IgG subclass 2 (S) [Mass/Vol] 115 mg/dL 130-555 [facility] Serum IgG subclass 3 measure ment (mass/volume)Ordered By: Liu Hackett on 01-22-2023 IgG subclass 3 (S) [Mass/Vol] 20 mg/dL 15-102 [facility] Serum Kelsey-1 antibody assay (u nits/volume)Ordered By: Liu Hackett on 01-22-2023 Kelsey-1 extractable nuclear Ab Qn (S) <0.2 AI 0.0-0.9 [facility] Serum Scl-70 extractable nuc lear antibody assay (units/volume)Ordered By: Liu Hackett on 01-22-2023 SCL-70 extractable nuclear Ab Qn (S) <0.2 AI 0.0-0.9 [facility] Serum Martinez extractable nucl ear antibody detectionOrdered By: Liu Hackett on 01-22-2023 Martinez extractable nuclear Ab Ql (S) <0.2 AI 0.0-0.9 [facility] Serum [id number] measu rement by electrophoresisOrdered By: Liu Hackett on 01-22-2023 Alpha 1 globulin Elph [Mass/Vol] 0.2 g/dL 0.0-0.4 [facility] Alpha 1 globulin Elph [Mass/Vol] 0.6 g/dL 0.4-1.0 [facility] Serum classic neutrophil cyt oplasmic antibody assay (units/volume)Ordered By: Liu Hackett on 01-22-2023 Neutrophil cytoplasmic Ab.classic Qn (S) <1:20 titer Neg:<1:20 [facility] Serum globulin measurement ( mass/volume)Ordered By: Liu Hackett on 01-22-2023 Globulin (S) [Mass/Vol] 1.9 g/dL 2.2-3.9 [facility] Serum or plasma IgA measurem ent (mass/volume)Ordered By: Liu Hackett on 01-22-2023 IgA [Mass/Vol] 194 mg/dL 61-437 [facility] Serum or plasma IgG measurem ent (mass/volume)Ordered By: Liu Hackett on 01-22-2023 IgG [Mass/Vol] 417 mg/dL 603-1613 [facility] IgG [Mass/Vol] Not Reportable [facility] Serum or plasma IgM measurem ent (mass/volume)Ordered By: Liu Hackett on 01-22-2023 IgM [Mass/Vol] 15 mg/dL 15-143 [facility] Comment on above: Result confirmed on concentration. Serum or plasma beta globuli n measurement by electrophoresis (mass/volume)Ordered By: Liu Hackett on 01-22-2023 Beta globulin Elph [Mass/Vol] 0.7 g/dL 0.7-1.3 [facility] Serum or plasma gamma globul in measurement by electrophoresis (mass/volume)Ordered By: Liu Hackett on 01-22-2023 Gamma globulin Elph [Mass/Vol] 0.3 g/dL 0.4-1.8 [facility] Serum or plasma immunoelectr ophoresis interpretation (nominal result)Ordered By: Liu Hackett on 01-22-2023 Interpretation IEP [Interp] Comment . [facility] Comment on above: No monoclonality det ected. Serum perinuclear neutrophil cytoplasmic antibody titer by immunofluorescenceOrdered By: Liu Hackett on 01-22-2023 Neutrophil cytoplasmic Ab.perinuclear IF (S) [Titer] <1:20 titer Neg:<1:20 [facility] Comment on above: The presence of posi tive fluorescence exhibiting P-ANCA orC-ANCA patterns alone is not specific for the diagnosis ofWegener's Granulomatosis (WG) or microscopic polyangiitis.Decisions about treatment should not be based solely onANCA IFA results. The [employer] ANCA [employer] Consensusrecommends follow up testing of positive sera with both DE-3 and MPO-ANCA enzyme immunoassays. As many as 5% serumsamples are positive only by EIA. Ref. AM J Clin [id number];111:507-513. Thin prep Papanicolaou smear with manual screeningOrdered By: Liu Hackett on 01-22-2023 Thin prep Papanicolaou smear with manual screening 1.4 0.7-1.7 [facility] Total protein bloodOrdered B y: Liu Hackett on 01-22-2023 Protein [Mass/Vol] 4.4 g/dL 6.0-8.5 [facility] Absolute lymphocyte countOrd ered By: Dandy Sauer on 01-21-2023 Lymphocytes Auto (Unsp spec) [#/Vol] 1.69 10*3/uL 0.83-4.51 [facility] Basophil percentageOrdered B y: Dandy Sauer on 01-21-2023 Basophil percentage 0-5 SEEN /hpf 0-5 [facility] Basophil percentage 5.4 g/dL 6.4-8.2 [facility] Basophil percentage 0.30 mg/dL 0.20-1.00 [facility] Basophils/100 WBC (Bld) 0.3 % 0-1 [facility] Bilirubin [Mass/Vol] 0.30 mg/dL 0.20-1.00 [facility] Comment on above: For patients on eltr ombopag therapy, use of Dimension [place] TBIL is not recommended. Chloride [Moles/Vol] 109 mmol/L 98-107 [facility] Eosinophils/100 WBC (Bld) 0.0 % 0-5 [facility] Glucose [Mass/Vol] 248 mg/dL 74-106 [facility] Comment on above: Glucose result great er than or equal to 200 mg/dLsuggests DIABETES MELLITUS per A.D.A. criteria. Lactate [Moles/Vol] 7.9 mmol/L 0.4-2.0 [facility] Comment on above: Critical Result(s) C alled at: 09:48:37 01/21/2023 by: Aruna Morales to Shwetha. Results read back by same. Neutrophils (Bld) [#/Vol] 19.7 10*3/uL 2.0-7.7 [facility] Neutrophils/100 WBC (Bld) 87.8 % 47-70 [facility] Potassium [Moles/Vol] 5.2 mmol/L 3.5-5.1 [facility] Protein [Mass/Vol] 5.4 g/dL 6.4-8.2 [facility] Sodium [Moles/Vol] 138 mmol/L 136-145 [facility] WBC (Bld) [#/Vol] 22.4 10*3/uL 4.4-11.0 [facility] Bilirubin Test strip Ql (U)O rdered By: Dandy Sauer on 07-10-2023 Bilirubin Ql (U) 1 mg/dL Negative [facility] Comment on above: COLOR OF URINE MAY A FFECT DIPSTICK RESULTS. Blood erythrocytes count (nu mber/volume)Ordered By: Dandy Sauer on 01-21-2023 RBC (Bld) [#/Vol] 3.96 10*6/uL 4.6-6.2 [facility] Blood hemoglobin measurement (mass/volume)Ordered By: Dandy Sauer on 01-21-2023 Hemoglobin (Bld) [Mass/Vol] 10.7 g/dL 13.0-16. 5 [facility] Blood lymphocytes/100 leukoc ytesOrdered By: Dandy Sauer on 01-21-2023 Lymphocytes/100 WBC (Bld) 7.5 % 19-41 [facility] Blood monocytes/100 leukocyt esOrdered By: Dandy Sauer on 01-21-2023 Monocytes/100 WBC (Bld) 2.4 % 0-10 [facility] Blood platelet mean volumeOr dered By: Dandy Sauer on 01-21-2023 Platelet mean volume (Bld) [Entitic vol] 10.7 fL 6.2-12.0 [facility] Determination of erythrocyte mean corpuscular volume (MCV)Ordered By: Dandy Sauer on 01-21-2023 MCV (RBC) [Entitic vol] 86.6 fL 80-94 [facility] Hematocrit Auto (Bld) [Volum e fraction]Ordered By: Dandy Sauer on 01-21-2023 Hematocrit (Bld) [Volume fraction] 34.3 % 40-54 [facility] INR in Blood by Coagulation assayOrdered By: Dandy Sauer on 01-21-2023 INR Coag (Bld) [Relative time] 4.2 {INR} [facility] Comment on above: CRITICAL VALUE VERIF IED. CALLED TO EVANS MARI (ER)01/21/23 1011 Zachary DurantRESULTS READ BACK BY SAME. Ketones Test strip Ql (U)Ord ered By: Dandy Sauer on 01-21-2023 Ketones Ql (U) 15 mg/dl Negative [facility] Laboratory - Chemistry and C hemistry - challengeOrdered By: Dandy Sauer on 01-21-2023 ALP [Catalytic activity/Vol] 76 U/L 45-117 [facility] ALT [Catalytic activity/Vol] 25 U/L 16-61 [facility] CO2 [Moles/Vol] 12.0 mmol/L 21.0-32.0 [facility] Globulin (S) [Mass/Vol] 2.7 g/dL 2.2-4.2 [facility] Urea nitrogen/Creatinine [Mass ratio] 62.8 mg/mg 10-20 [facility] Laboratory - CoagulationOrde red By: Dandy Sauer on 01-21-2023 PT Coag (PPP) [Time] 41.4 s 11.7-14.9 [facility] Laboratory - Hematology and Cell countsOrdered By: Dandy Sauer on 01-21-2023 Erythrocyte distribution width (RBC) [Entitic vol] 46.6 fL 35.1-43.9 [facility] Erythrocyte distribution width (RBC) [Ratio] 14.7 % 11.6-14.6 [facility] Immature granulocytes/100 WBC (Bld) 2.000 % 0.0-0.9 [facility] Comment on above: IG% - Immature Granu locytes (promyelocytes, myelocytes and metamyelocytes) > 1% indicates that a LEFT SHIFT is Present. MCH (RBC) [Entitic mass] 27.0 pg 27.0-32.0 [facility] Nucleated RBC/100 WBC (Bld) [Ratio] 0 % 0-5 [facility] Lower GI hemoglobin IA Ql (S tl)Ordered By: Dandy Sauer on 01-21-2023 Stool gastrointestinal hemoglobin detection by immunologic method Positive [facility] Stool Occult Blood (KLAUS) Positive [facility] Stool gastrointestinal hemoglobin detection by immunologic method Positive [facility] MCHC Auto (RBC) [Mass/Vol]Or dered By: Dandy Sauer on 01-21-2023 MCHC (RBC) [Mass/Vol] 31.2 g/dL 32-36 [facility] Mucus LM Ql (Urine sed)Order ed By: Dandy Sauer on 01-21-2023 Mucus Ql (Urine sed) 0 SEEN /hpf [facility] Nitrite Test strip Ql (U)Ord ered By: Dandy Sauer on 01-21-2023 Nitrite Ql (U) Negative Negative [facility] No Panel InformationOrdered By: Dandy Sauer on 01-21-2023 Estimated Creatinine Clearance Calc 36.25 ml/min [facility] Estimated GFR (MDRD) Amer 42 mL/min >60 [facility] Comment on above: GFR Calc Estimated GFR (MDRD) Non-Af Amer 35 mL/min >60 [facility] Comment on above: Non- GFR Calc Troponin I High Sensitivity 23 pg/mL 3.0-78.0 [facility] Comment on above: Please Note: New Th[place] t Units and Gender Specific Reference Ranges. For more information see Policy Stat Procedure [place] High Sensitivity Troponin (TNIH) and attachments. 23 pg/mL 3.0-78.0 [facility] 76 U/L 45-117 [facility] 25 U/L 16-61 [facility] Platelets bldOrdered By: Renetta Sauer on 01-21-2023 Platelets (Bld) [#/Vol] 389 10*3/uL 150-450 [facility] Protein Test strip Ql (U)Ord ered By: Dandy Sauer on 01-21-2023 Protein Ql (U) 15 mg/dl Negative [facility] Serum or plasma albumin antoine urement (mass/volume)Ordered By: Dandy Sauer on 01-21-2023 Albumin [Mass/Vol] 2.7 g/dL 3.2-5.0 [facility] Serum or plasma albumin/glob ulin mass ratioOrdered By: Dandy Sauer on 01-21-2023 Albumin/Globulin [Mass ratio] 1.0 {ratio} 0.9-2.4 [facility] Serum or plasma calcium antoine urement (mass/volume)Ordered By: Dandy Sauer on 01-21-2023 Calcium [Mass/Vol] 9.7 mg/dL 8.5-10.1 [facility] Serum or plasma creatinine m easurement (mass/volume)Ordered By: Dandy Sauer on 01-21-2023 Creatinine [Mass/Vol] 1.99 mg/dL 0.70-1.30 [facility] Comment on above: The validity of the calculated GFR & GFRAA in patients over 70 years has not been determined. Clinical correlation is essential. Serum or plasma urea nitroge n measurement (mass/volume)Ordered By: Dandy Sauer on 01-21-2023 Urea nitrogen [Mass/Vol] 125 mg/dL 7-18 [facility] Comment on above: Critical Result(s) C alled at: 09:53:00 01/21/2023 by: Aruna Morales to Shwetha. Results read back by same. Squamous epithelial cells de tection in urine sediment by light microscopyOrdered By: Dandy Sauer on 01-21-2023 Epithelial cells.squamous LM Ql (Urine sed) 0-5 SEEN /hpf 0-5 [facility] Thin prep Papanicolaou smear with manual screeningOrdered By: Dandy Sauer on 01-21-2023 Thin prep Papanicolaou smear with manual screening 9 U/L 15-37 [facility] Thin prep Papanicolaou smear with manual screening 17 5-15 [facility] Urine blood detectionOrdered By: Dandy Sauer on 01-21-2023 RBC Ql (U) Negative Negative [facility] RBC Ql (U) 0 SEEN /hpf 0-5 [facility] Urine clarityOrdered By: Renetta Sauer on 01-21-2023 Clarity (U) Clear Clear [facility] Urine color determinationOrd ered By: Dandy Sauer on 01-21-2023 Color (U) Yellow Yellow [facility] Urine glucose detectionOrder ed By: Dandy Sauer on 01-21-2023 Glucose Ql (U) 100 mg/dl Normal [facility] Urine leukocyte esterase det ection by dipstickOrdered By: Dandy Sauer on 01-21-2023 Leukocyte esterase Test strip Ql (U) Negative Negative [facility] Urine pHOrdered By: Dandy Sauer on 01-21-2023 pH (U) 5.0 [pH] 5.0 - 8.0 [facility] Urine sediment bacteria coun t by microscopy (number/high power field)Ordered By: Dandy Sauer on 01-21-2023 Bacteria LM.HPF (Urine sed) [#/Area] 0 /[HPF] None Seen [facility] Urine specific gravity measu rementOrdered By: Dandy Sauer on 01-21-2023 Specific gravity (U) [Rel density] 1.020 1.002-1.03 0 [facility] Urobilinogen Auto test strip Ql (U)Ordered By: Dandy Sauer on 01-21-2023 Urobilinogen Ql (U) Normal mg/dl Normal [facility] Glucose Glucometer (BldC) [M ass/Vol]Ordered By: Gabriel Giraldo on 01-08-2023 Glucose [Mass/Vol] 201 mg/dL 74-106 [facility] Comment on above: MANAGEMENT OF PATIEN T CARE PER NURSING PROTOCOL Absolute lymphocyte countOrd ered By: Karen Aly on 01-07-2023 Lymphocytes Auto (Unsp spec) [#/Vol] 1.83 10*3/uL 0.83-4.51 [facility] Basophil percentageOrdered B y: Karen Aly on 01-07-2023 Basophil percentage 121 mg/dL 74-106 [facility] Basophil percentage 6.0 g/dL 6.4-8.2 [facility] Basophil percentage 0.70 mg/dL 0.20-1.00 [facility] Basophil percentage 138 mmol/L 136-145 [facility] Basophil percentage 4.1 mmol/L 3.5-5.1 [facility] Basophil percentage 106 mmol/L 98-107 [facility] Basophils (Bld) [#/Vol] 9.3 10*3/uL 4.4-11.0 [facility] Basophils (Bld) [#/Vol] 6.4 10*3/uL 2.0-7.7 [facility] Basophils/100 WBC (Bld) 0.6 % 0-1 [facility] Basophils/100 WBC (Bld) 69.0 % 47-70 [facility] Basophils/100 WBC (Bld) 2.4 % 0-5 [facility] Bilirubin [Mass/Vol] 0.70 mg/dL 0.20-1.00 [facility] Comment on above: For patients on eltr ombopag therapy, use of Dimension [place] TBIL is not recommended. Chloride [Moles/Vol] 106 mmol/L 98-107 [facility] Eosinophils/100 WBC (Bld) 2.4 % 0-5 [facility] Glucose [Mass/Vol] 121 mg/dL 74-106 [facility] Comment on above: Fasting Glucose resu lt from 100 to 125 mg/dL suggests IMPAIRED HOMEOSTASIS per A.D.A. criteria. Neutrophils (Bld) [#/Vol] 6.4 10*3/uL 2.0-7.7 [facility] Neutrophils/100 WBC (Bld) 69.0 % 47-70 [facility] Potassium [Moles/Vol] 4.1 mmol/L 3.5-5.1 [facility] Protein [Mass/Vol] 6.0 g/dL 6.4-8.2 [facility] Sodium [Moles/Vol] 138 mmol/L 136-145 [facility] WBC (Bld) [#/Vol] 9.3 10*3/uL 4.4-11.0 [facility] Blood erythrocytes count (nu mber/volume)Ordered By: Karen Aly on 01-07-2023 RBC (Bld) [#/Vol] 4.90 10*6/uL 4.6-6.2 [facility] Blood hemoglobin measurement (mass/volume)Ordered By: Karen Aly on 01-07-2023 Hemoglobin (Bld) [Mass/Vol] 13.1 g/dL 13.0-16. 5 [facility] Blood lymphocytes/100 leukoc ytesOrdered By: Karen Aly on 01-07-2023 Lymphocytes/100 WBC (Bld) 19.8 % 19-41 [facility] Blood monocytes/100 leukocyt esOrdered By: Karen Aly on 01-07-2023 Monocytes/100 WBC (Bld) 7.2 % 0-10 [facility] Blood platelet mean volumeOr dered By: Karen Aly on 01-07-2023 Platelet mean volume (Bld) [Entitic vol] 9.1 fL 6.2-12.0 [facility] Determination of erythrocyte mean corpuscular volume (MCV)Ordered By: Karen Aly on 01-07-2023 MCV (RBC) [Entitic vol] 83.5 fL 80-94 [facility] Hematocrit Auto (Bld) [Volum e fraction]Ordered By: Karen Aly on 01-07-2023 Hematocrit (Bld) [Volume fraction] 40.9 % 40-54 [facility] INR in Blood by Coagulation assayOrdered By: Karen Aly on 01-07-2023 INR Coag (Bld) [Relative time] 2.2 {INR} [facility] Laboratory - Chemistry and C hemistry - challengeOrdered By: Karen Aly on 01-07-2023 ALP [Catalytic activity/Vol] 90 U/L 45-117 [facility] ALT [Catalytic activity/Vol] 18 U/L 16-61 [facility] CO2 [Moles/Vol] 24.0 mmol/L 21.0-32.0 [facility] Globulin (S) [Mass/Vol] 3.1 g/dL 2.2-4.2 [facility] Urea nitrogen/Creatinine [Mass ratio] 23.0 mg/mg 10-20 [facility] Laboratory - CoagulationOrde red By: Karen Aly on 01-07-2023 PT Coag (PPP) [Time] 24.8 s 11.7-14.9 [facility] Laboratory - Hematology and Cell countsOrdered By: Karen Aly on 01-07-2023 Erythrocyte distribution width (RBC) [Entitic vol] 43.7 fL 35.1-43.9 [facility] Erythrocyte distribution width (RBC) [Ratio] 14.5 % 11.6-14.6 [facility] Immature granulocytes/100 WBC (Bld) 1.000 % 0.0-0.9 [facility] Comment on above: IG% - Immature Granu locytes (promyelocytes, myelocytes and metamyelocytes) > 1% indicates that a LEFT SHIFT is Present. MCH (RBC) [Entitic mass] 26.7 pg 27.0-32.0 [facility] Nucleated RBC/100 WBC (Bld) [Ratio] 0 % 0-5 [facility] MCHC Auto (RBC) [Mass/Vol]Or dered By: Karen Aly on 01-07-2023 MCHC (RBC) [Mass/Vol] 32.0 g/dL 32-36 [facility] No Panel InformationOrdered By: Karen Aly on 01-07-2023 Estimated Creatinine Clearance Calc 63.83 ml/min [facility] Estimated GFR (MDRD) Amer 81 mL/min >60 [facility] Comment on above: GFR Calc Estimated GFR (MDRD) Non-Af Amer 67 mL/min >60 [facility] Comment on above: Non- GFR Calc 26.7 pg 27.0-32.0 [facility] 14.5 % 11.6-14.6 [facility] 43.7 fl 35.1-43.9 [facility] 1.000 % 0.0-0.9 [facility] 0 % 0-5 [facility] 24.8 SECONDS 11.7-14.9 [facility] 67 mL/min >60 [facility] 81 mL/min >60 [facility] 63.83 ml/min [facility] 23.0 RATIO 10-20 [facility] 3.1 g/dL 2.2-4.2 [facility] 90 U/L 45-117 [facility] 18 U/L 16-61 [facility] 24.0 mmol/L 21.0-32.0 [facility] Platelets bldOrdered By: Dede Aly on 01-07-2023 Platelets (Bld) [#/Vol] 216 10*3/uL 150-450 [facility] Serum or plasma albumin antoine urement (mass/volume)Ordered By: Karen Aly on 01-07-2023 Albumin [Mass/Vol] 2.9 g/dL 3.2-5.0 [facility] Serum or plasma albumin/glob ulin mass ratioOrdered By: Karen Aly on 01-07-2023 Albumin/Globulin [Mass ratio] 0.9 {ratio} 0.9-2.4 [facility] Serum or plasma calcium antoine urement (mass/volume)Ordered By: Karen Aly on 01-07-2023 Calcium [Mass/Vol] 8.8 mg/dL 8.5-10.1 [facility] Serum or plasma creatinine m easurement (mass/volume)Ordered By: Karen Aly on 01-07-2023 Creatinine [Mass/Vol] 1.13 mg/dL 0.70-1.30 [facility] Comment on above: The validity of the calculated GFR & GFRAA in patients over 70 years has not been determined. Clinical correlation is essential. Serum or plasma urea nitroge n measurement (mass/volume)Ordered By: Karen Aly on 01-07-2023 Urea nitrogen [Mass/Vol] 26 mg/dL 7-18 [facility] Thin prep Papanicolaou smear with manual screeningOrdered By: Karen Aly on 01-07-2023 Thin prep Papanicolaou smear with manual screening 13 U/L 15-37 [facility] Thin prep Papanicolaou smear with manual screening 8 5-15 [facility] Basophil percentageOrdered B y: Karen Aly on 01-05-2023 Basophil percentage 87 mg/dL <200 [facility] Basophil percentage 116 mg/dL <199 [facility] Cholesterol [Mass/Vol] 87 mg/dL <200 [facility] Comment on above: <200 mg/dL Desirable 200-240 mg/dL Borderline >240 mg/dL High Risk Triglyceride [Mass/Vol] 116 mg/dL <199 [facility] Comment on above: The drugs N-Acetylcy steine and Metamizole may falsely depress this assay.Serum Triglycerides Reference Interval Normal <150 mg/dL Borderline high 150 - 199 mg/dL High 200 - 499 mg/dL Very High > or = 500 mg/dL No Panel InformationOrdered By: Karen Aly on 01-05-2023 Thyroid Stimulating Hormone (TSH) 1.13 uIU/mL 0.358-3.74 [facility] 1.13 uIU/mL 0.358-3.74 [facility] Serum or plasma cholesterol in HDL measurement (mass/volume)Ordered By: Karen Aly on 01-05-2023 Cholesterol in HDL [Mass/Vol] 37 mg/dL >40 [facility] Comment on above: The drugs N-Acetylcy steine and Metamizole may falsely depress this assay. Reference Range HDL <40 mg/dL Low HDL Cholesterol HDL >or= 60 mg/dL High HDL Cholesterol Serum or plasma cholesterol in VLDL measurement (mass/volume)Ordered By: Karen Aly on 01-05-2023 Cholesterol in VLDL [Mass/Vol] 23 mg/dL 5-40 [facility] Serum or plasma low density lipoprotein (LDL) cholesterol measurement (mass/volume)Ordered By: Karen Aly on 01-05-2023 Cholesterol in LDL [Mass/Vol] 27 mg/dL 0-130 [facility] Whole blood hemoglobin A1c/t otal hemoglobin ratio (mass fraction)Ordered By: Karen Aly on 01-05-2023 HbA1c (Bld) [Mass fraction] 5.8 % 3.8-5.6 [facility] Comment on above: Normal < 5.7 % Predi abetic 5.7 - 6.4 % Diabetic >or= 6.5 % Please note range changes. Absolute lymphocyte countOrd ered By: Dr. Roberts on 01-04-2023 Lymphocytes Auto (Unsp spec) [#/Vol] 1.31 10*3/uL 0.83-4.51 [facility] Assessment of wrist artery p atency prior to arterial punctureOrdered By: Dr. Aly on 01-04-2023 Arterial patency Wrist artery --pre arterial puncture N/A [facility] Bacteria identified Cx Nom ( U)Ordered By: Maggy Roberts on 01-04-2023 Culture, urine Positive [facility] Base excessOrdered By: Dr. Freddy pettit on 01-04-2023 Base excess Calc (BldV) [Moles/Vol] 0 mmol/L -2-2 [facility] Basophil percentageOrdered B y: Dr. Aly on 01-04-2023 Basophil percentage 23.7 mmol/L 22-26 [facility] Basophils/100 WBC (Bld) 96 % 95-99 [facility] Ammonia (P) [Moles/Vol] 17.0 umol/L - [facility] Basophil percentageOrdered B y: Karen Aly on 01-04-2023 Basophil percentage 17.0 umol/L - [facility] Basophil percentageOrdered B y: Dr. Roberts on 01-04-2023 Basophil percentage 0 SEEN /hpf 0-5 [facility] Basophils/100 WBC (Bld) 0.4 % 0-1 [facility] Bilirubin [Mass/Vol] 0.70 mg/dL 0.20-1.00 [facility] Comment on above: For patients on eltr ombopag therapy, use of Dimension [place] TBIL is not recommended. Chloride [Moles/Vol] 105 mmol/L 98-107 [facility] Eosinophils/100 WBC (Bld) 1.7 % 0-5 [facility] Glucose [Mass/Vol] 133 mg/dL 74-106 [facility] Comment on above: Fasting Glucose resu lt greater than or equal to 126 mg/dL suggests DIABETES MELLITUS per A.D.A. criteria. Neutrophils (Bld) [#/Vol] 8.0 10*3/uL 2.0-7.7 [facility] Neutrophils/100 WBC (Bld) 78.3 % 47-70 [facility] Potassium [Moles/Vol] 4.2 mmol/L 3.5-5.1 [facility] Protein [Mass/Vol] 6.3 g/dL 6.4-8.2 [facility] Sodium [Moles/Vol] 139 mmol/L 136-145 [facility] WBC (Bld) [#/Vol] 10.2 10*3/uL 4.4-11.0 [facility] Bilirubin Test strip Ql (U)O rdered By: Dr. Roberts on 01-04-2023 Bilirubin Ql (U) Negative Negative [facility] Blood erythrocytes count (nu mber/volume)Ordered By: Dr. Roberts on 01-04-2023 RBC (Bld) [#/Vol] 5.09 10*6/uL 4.6-6.2 [facility] Blood hemoglobin measurement (mass/volume)Ordered By: Dr. Roberts on 01-04-2023 Hemoglobin (Bld) [Mass/Vol] 13.5 g/dL 13.0-16. 5 [facility] Blood lymphocytes/100 leukoc ytesOrdered By: Dr. Roberts on 01-04-2023 Lymphocytes/100 WBC (Bld) 12.8 % 19-41 [facility] Blood monocytes/100 leukocyt esOrdered By: Dr. Roberts on 01-04-2023 Monocytes/100 WBC (Bld) 5.9 % 0-10 [facility] Blood platelet mean volumeOr dered By: Dr. Roberts on 01-04-2023 Platelet mean volume (Bld) [Entitic vol] 8.7 fL 6.2-12.0 [facility] CO2 (BldA) [Partial pressure ]Ordered By: Dr. Aly on 01-04-2023 CO2 (Bld) [Partial pressure] 33.9 mm[Hg] 35-45 [facility] Culture, urineOrdered By: Eddie Roberts on 01-04-2023 Bacteria identified Cx Nom (U) Positive [facility] Determination of erythrocyte mean corpuscular volume (MCV)Ordered By: Dr. Roberts on 01-04-2023 MCV (RBC) [Entitic vol] 82.1 fL 80-94 [facility] Direct bilirubinOrdered By: Dr. Roberts on 01-04-2023 Bilirubin.direct [Mass/Vol] 0.20 mg/dL 0.00-0.3 0 [facility] Hematocrit Auto (Bld) [Volum e fraction]Ordered By: Dr. Roberts on 01-04-2023 Hematocrit (Bld) [Volume fraction] 41.8 % 40-54 [facility] INR in Blood by Coagulation assayOrdered By: Dr. Roberts on 01-04-2023 INR Coag (Bld) [Relative time] 3.1 {INR} [facility] Ketones Test strip Ql (U)Ord ered By: Dr. Roberts on 01-04-2023 Ketones Ql (U) Negative Negative [facility] Laboratory - Chemistry and C hemistry - challengeOrdered By: Karen Aly on 01-04-2023 Cobalamin (Vitamin B12) [Mass/Vol] 260 pg/mL 211-911 [facility] Laboratory - Chemistry and C hemistry - challengeOrdered By: Dr. Aly on 01-04-2023 Magnesium [Mass/Vol] 1.8 mg/dL 1.6-2.6 [facility] Laboratory - Chemistry and C hemistry - challengeOrdered By: Dr. Roberts on 01-04-2023 ALP [Catalytic activity/Vol] 102 U/L 45-117 [facility] ALT [Catalytic activity/Vol] 18 U/L 16-61 [facility] CO2 [Moles/Vol] 25.0 mmol/L 21.0-32.0 [facility] Globulin (S) [Mass/Vol] 3.2 g/dL 2.2-4.2 [facility] Urea nitrogen/Creatinine [Mass ratio] 18.7 mg/mg 10-20 [facility] Laboratory - CoagulationOrde red By: Dr. Roberts on 01-04-2023 PT Coag (PPP) [Time] 32.6 s 11.7-14.9 [facility] Laboratory - Hematology and Cell countsOrdered By: Dr. Roberts on 01-04-2023 Erythrocyte distribution width (RBC) [Entitic vol] 42.3 fL 35.1-43.9 [facility] Erythrocyte distribution width (RBC) [Ratio] 14.2 % 11.6-14.6 [facility] Immature granulocytes/100 WBC (Bld) 0.900 % 0.0-0.9 [facility] Comment on above: IG% - Immature Granu locytes (promyelocytes, myelocytes and metamyelocytes) > 1% indicates that a LEFT SHIFT is Present. MCH (RBC) [Entitic mass] 26.5 pg 27.0-32.0 [facility] Nucleated RBC/100 WBC (Bld) [Ratio] 0 % 0-5 [facility] Laboratory - Microbiology an d Antimicrobial susceptibilityOrdered By: Maggy Roberts on 01-04-2023 Bacteria identified Cx Nom (Bld) No growth in 5 days. [facility] MCHC Auto (RBC) [Mass/Vol]Or dered By: Dr. Roberts on 01-04-2023 MCHC (RBC) [Mass/Vol] 32.3 g/dL 32-36 [facility] Mucus LM Ql (Urine sed)Order ed By: Dr. Roberts on 01-04-2023 Mucus Ql (Urine sed) 0 SEEN /hpf [facility] Nitrite Test strip Ql (U)Ord ered By: Dr. Roberts on 01-04-2023 Nitrite Ql (U) Negative Negative [facility] No Panel InformationOrdered By: Dr. Aly on 01-04-2023 Blood Gas Oxygen Percent 21 [facility] Blood Gas Sample Site R Brach [facility] Blood Gas Specimen Type ART [facility] Blood Gas Total CO2 25 mmol/L [facility] Oxygen Delivery Device Room Air [facility] No Panel InformationOrdered By: Karen Aly on 01-04-2023 ART [facility] R Brach [facility] Room Air [facility] 21 [facility] 25 mmol/L [facility] 1.8 mg/dL 1.6-2.6 [facility] 260 pg/mL 211-911 [facility] No Panel InformationOrdered By: Maggy Roberts on 01-04-2023 No growth in 5 days. [facility] 7 pg/mL 3.0-78.0 [facility] No Panel InformationOrdered By: Dr. Roberts on 01-04-2023 Estimated Creatinine Clearance Calc 58.64 ml/min [facility] Estimated GFR (MDRD) Amer 74 mL/min >60 [facility] Comment on above: GFR Calc Estimated GFR (MDRD) Non-Af Amer 61 mL/min >60 [facility] Comment on above: Non- GFR Calc Troponin I High Sensitivity 7 pg/mL 3.0-78.0 [facility] Comment on above: Please Note: New Thania t Units and Gender Specific Reference Ranges. For more information see Policy Stat Procedure [place] High Sensitivity Troponin (TNIH) and attachments. Oxygen (BldA) [Partial press ure]Ordered By: Dr. Aly on 01-04-2023 Oxygen (Bld) [Partial pressure] 78 mmHG 75-100 [facility] Platelets bldOrdered By: Dr. Roberts on 01-04-2023 Platelets (Bld) [#/Vol] 228 10*3/uL 150-450 [facility] Protein Test strip Ql (U)Ord ered By: Dr. Roberts on 01-04-2023 Protein Ql (U) 15 mg/dl Negative [facility] Serum Treponema species anti body detectionOrdered By: Karen Aly on 01-04-2023 Treponema sp Ab Ql (S) Non-Reactive [facility] Serum or plasma albumin antoine urement (mass/volume)Ordered By: Dr. Roberts on 01-04-2023 Albumin [Mass/Vol] 3.1 g/dL 3.2-5.0 [facility] Serum or plasma calcium antoine urement (mass/volume)Ordered By: Dr. Roberts on 01-04-2023 Calcium [Mass/Vol] 8.6 mg/dL 8.5-10.1 [facility] Serum or plasma creatinine m easurement (mass/volume)Ordered By: Dr. Roberts on 01-04-2023 Creatinine [Mass/Vol] 1.23 mg/dL 0.70-1.30 [facility] Comment on above: The validity of the calculated GFR & GFRAA in patients over 70 years has not been determined. Clinical correlation is essential. Serum or plasma folate measu rement (mass/volume)Ordered By: Karen Aly on 01-04-2023 Folate [Mass/Vol] 4.40 ng/mL 3.1-55.4 [facility] Serum or plasma urea nitroge n measurement (mass/volume)Ordered By: Dr. Roberts on 01-04-2023 Urea nitrogen [Mass/Vol] 23 mg/dL 7-18 [facility] Serum procalcitonin measurem entOrdered By: Karen Aly on 01-04-2023 Procalcitonin [Mass/Vol] ng/mL 0.00-0.09 [facility] Comment on above: A procalcitonin (PCT [...] Ql (Urine sed) 0-5 SEEN /hpf 0-5 [facility] Thin prep Papanicolaou smear with manual screeningOrdered By: Dr. Roberts on 01-04-2023 Thin prep Papanicolaou smear with manual screening 13 U/L 15-37 [facility] Thin prep Papanicolaou smear with manual screening 9 5-15 [facility] Urine blood detectionOrdered By: Dr. Roberts on 01-04-2023 RBC Ql (U) 10 /ul Negative [facility] RBC Ql (U) 0-5 SEEN /hpf 0-5 [facility] Urine clarityOrdered By: Dr. Roberts on 01-04-2023 Clarity (U) Sl. Cloudy Clear [facility] Urine color determinationOrd ered By: Dr. Roberts on 01-04-2023 Color (U) Yellow Yellow [facility] Urine glucose detectionOrder ed By: Dr. Roberts on 01-04-2023 Glucose Ql (U) 100 mg/dl Normal [facility] Urine leukocyte esterase det ection by dipstickOrdered By: Dr. Roberts on 01-04-2023 Leukocyte esterase Test strip Ql (U) Negative Negative [facility] Urine pHOrdered By: Dr. Yaya gallo on 01-04-2023 pH (U) 6.0 [pH] 5.0 - 8.0 [facility] Urine sediment bacteria coun t by microscopy (number/high power field)Ordered By: Dr. Rboerts on 01-04-2023 Bacteria LM.HPF (Urine sed) [#/Area] 0 /[HPF] None Seen [facility] Urine specific gravity measu rementOrdered By: Dr. Roberts on 01-04-2023 Specific gravity (U) [Rel density] 1.020 1.002-1.03 0 [facility] Urobilinogen Auto test strip Ql (U)Ordered By: Dr. Roberts on 01-04-2023 Urobilinogen Ql (U) 4 mg/dl Normal [facility] pH measurementOrdered By: Dr Jose Aly on 01-04-2023 pH (Unsp spec) 7.45 [pH] 7.35-7.45 [facility] Absolute lymphocyte counton 07-11-2022 Lymphocytes Auto (Unsp spec) [#/Vol] 1.98 10*3/uL 0.83-4.51 [facility] Work Phone: Basophil percentageon 2021 Basophils/100 WBC (Bld) 0.6 % 0-1 [facility] Work Phone: Bilirubin [Mass/Vol] 0.90 mg/dL 0.20-1.00 [facility] Work Phone: Comment on above: For patients on eltr ombopag therapy, use of Dimension [place] TBIL is not recommended. Chloride [Moles/Vol] 105 mmol/L 98-107 [facility] Work Phone: Cholesterol [Mass/Vol] 102 mg/dL <200 [facility] Work Phone: Comment on above: <200 mg/dL Desirable 200-240 mg/dL Borderline >240 mg/dL High Risk Eosinophils/100 WBC (Bld) 4.1 % 0-5 [facility] Work Phone: [phone] Glucose [Mass/Vol] 103 mg/dL 74-106 [facility] Work Phone: Comment on above: Fasting Glucose resu lt from 100 to 125 mg/dL suggests IMPAIRED HOMEOSTASIS per A.D.A. criteria. Neutrophils (Bld) [#/Vol] 5.2 10*3/uL 2.0-7.7 [facility] Work Phone: Neutrophils/100 WBC (Bld) 63.5 % 47-70 [facility] Work Phone: Potassium [Moles/Vol] 3.5 mmol/L 3.5-5.1 [facility] Work Phone: Protein [Mass/Vol] 5.9 g/dL 6.4-8.2 [facility] Work Phone: Sodium [Moles/Vol] 138 mmol/L 136-145 [facility] [facility] Work Phone: Triglyceride [Mass/Vol] 124 mg/dL <199 [facility] Work Phone: Comment on above: The drugs N-Acetylcy steine and Metamizole may falsely depress this assay.Serum Triglycerides Reference Interval Normal <150 mg/dL Borderline high 150 - 199 mg/dL High 200 - 499 mg/dL Very High > or = 500 mg/dL WBC (Bld) [#/Vol] 8.2 10*3/uL 4.4-11.0 [facility] Work Phone: Blood erythrocytes count (nu mber/volume)on 07-11-2022 RBC (Bld) [#/Vol] 4.75 10*6/uL 4.6-6.2 [facility] Work Phone: Blood hemoglobin measurement (mass/volume)on 07-11-2022 Hemoglobin (Bld) [Mass/Vol] 12.7 g/dL 13.0-16. 5 [facility] Work Phone: Blood lymphocytes/100 leukoc yteson 07-11-2022 Lymphocytes/100 WBC (Bld) 24.1 % 19-41 [facility] Work Phone: Blood monocytes/100 leukocyt eson 07-11-2022 Monocytes/100 WBC (Bld) 6.8 % 0-10 [facility] Work Phone: Blood platelet mean volumeon 07-11-2022 Platelet mean volume (Bld) [Entitic vol] 9.2 fL 6.2-12.0 [facility] Work Phone: Determination of erythrocyte mean corpuscular volume (MCV)on 07-11-2022 MCV (RBC) [Entitic vol] 82.7 fL 80-94 [facility] Work Phone: Glucose Glucometer (BldC) [M ass/Vol]on 07-11-2022 Glucose [Mass/Vol] 149 mg/dL 74-106 [facility] Work Phone: Comment on above: MANAGEMENT OF PATIEN T CARE PER NURSING PROTOCOL Hematocrit Auto (Bld) [Volum e fraction]on 07-11-2022 Hematocrit (Bld) [Volume fraction] 39.3 % 40-54 [facility] Work Phone: INR in Blood by Coagulation assayon 07-11-2022 INR Coag (Bld) [Relative time] 2.1 {INR} [facility] Work Phone: Laboratory - Chemistry and C hemistry - challengeon 07-11-2022 ALP [Catalytic activity/Vol] 106 U/L 45-117 [facility] Work Phone: ALT [Catalytic activity/Vol] 22 U/L 16-61 [facility] Work Phone: CO2 [Moles/Vol] 25.0 mmol/L 21.0-32.0 [facility] Work Phone: Globulin (S) [Mass/Vol] 2.9 g/dL 2.2-4.2 [facility] Work Phone: Magnesium [Mass/Vol] 1.9 mg/dL 1.6-2.6 [facility] Work Phone: Urea nitrogen/Creatinine [Mass ratio] 17.7 mg/mg 10-20 [facility] Work Phone: Laboratory - Coagulationon 1 09-11-2021 PT Coag (PPP) [Time] 23.6 s 11.7-14.9 [facility] Work Phone: Laboratory - Hematology and Cell countson 07-11-2022 Erythrocyte distribution width (RBC) [Entitic vol] 44.0 fL 35.1-43.9 [facility] Work Phone: Erythrocyte distribution width (RBC) [Ratio] 14.6 % 11.6-14.6 [facility] Work Phone: Immature granulocytes/100 WBC (Bld) 0.900 % 0.0-0.9 [facility] Work Phone: Comment on above: IG% - Immature Granu locytes (promyelocytes, myelocytes and metamyelocytes) > 1% indicates that a LEFT SHIFT is Present. MCH (RBC) [Entitic mass] 26.7 pg 27.0-32.0 [facility] Work Phone: Nucleated RBC/100 WBC (Bld) [Ratio] 0 % 0-5 [facility] Work Phone: MCHC Auto (RBC) [Mass/Vol]on 07-11-2022 MCHC (RBC) [Mass/Vol] 32.3 g/dL 32-36 [facility] Work Phone: No Panel Informationon 07-11 Estimated Creatinine Clearance Calc 64.82 ml/min [facility] Work Phone: Estimated GFR (MDRD) Amer 81 mL/min >60 [facility] Work Phone: Comment on above: GFR Calc Estimated GFR (MDRD) Non-Af Amer 67 mL/min >60 [facility] Work Phone: Comment on above: Non- GFR Calc Platelets bldon 07-11-2022 Platelets (Bld) [#/Vol] 200 10*3/uL 150-450 [facility] Work Phone: Serum or plasma albumin antoine urement (mass/volume)on 07-11-2022 Albumin [Mass/Vol] 3.0 g/dL 3.2-5.0 [facility] Work Phone: Serum or plasma albumin/glob ulin mass ratioon 07-11-2022 Albumin/Globulin [Mass ratio] 1.0 {ratio} 0.9-2.4 [facility] Work Phone: Serum or plasma calcium antoine urement (mass/volume)on 07-11-2022 Calcium [Mass/Vol] 8.6 mg/dL 8.5-10.1 [facility] Work Phone: Serum or plasma cholesterol in HDL measurement (mass/volume)on 07-11-2022 Cholesterol in HDL [Mass/Vol] 36 mg/dL >40 [facility] Work Phone: Comment on above: The drugs N-Acetylcy steine and Metamizole may falsely depress this assay. Reference Range HDL <40 mg/dL Low HDL Cholesterol HDL >or= 60 mg/dL High HDL Cholesterol Serum or plasma cholesterol in VLDL measurement (mass/volume)on 07-11-2022 Cholesterol in VLDL [Mass/Vol] 25 mg/dL 5-40 [facility] Work Phone: Serum or plasma creatinine m easurement (mass/volume)on 07-11-2022 Creatinine [Mass/Vol] 1.13 mg/dL 0.70-1.30 [facility] Work Phone: Comment on above: The validity of the calculated GFR & GFRAA in patients over 70 years has not been determined. Clinical correlation is essential. Serum or plasma low density lipoprotein (LDL) cholesterol measurement (mass/volume)on 07-11-2022 Cholesterol in LDL [Mass/Vol] 41 mg/dL 0-130 [facility] Work Phone: Serum or plasma urea nitroge n measurement (mass/volume)on 07-11-2022 Urea nitrogen [Mass/Vol] 20 mg/dL 7-18 [facility] Work Phone: Thin prep Papanicolaou smear with manual screeningon 07-11-2022 Thin prep Papanicolaou smear with manual screening 23 U/L 15-37 [facility] Work Phone: Thin prep Papanicolaou smear with manual screening 8 5-15 [facility] Work Phone: No Panel Informationon 07-10 Troponin I High Sensitivity 103 pg/mL 3.0-78.0 [facility] Work Phone: Comment on above: Please Note: New Thania t Units and Gender Specific Reference Ranges. For more information see Policy Stat Procedure [place] High Sensitivity Troponin (TNIH) and attachments. Thyroid Stimulating Hormone (TSH) 1.03 uIU/mL 0.358-3.74 [facility] Work Phone: Basophil percentageon 2021 Basophil percentage 0-5 SEEN /hpf 0-5 [facility] Work Phone: Bilirubin Test strip Ql (U)o n 07-09-2022 Bilirubin Ql (U) Negative Negative [facility] Work Phone: Hyaline casts LM.LPF (Urine sed) [#/Area]on 07-09-2022 Hyaline casts (Urine sed) [#/Area] 0 /[LPF] 0-5 [facility] Work Phone: Ketones Test strip Ql (U)on 07-09-2022 Ketones Ql (U) 5 mg/dl Negative [facility] Work Phone: Mucus LM Ql (Urine sed)on Mucus Ql (Urine sed) 1+ /hpf [facility] Work Phone: Nitrite Test strip Ql (U)on 07-09-2022 Nitrite Ql (U) Negative Negative [facility] Work Phone: Protein Test strip Ql (U)on 07-09-2022 Protein Ql (U) 30 mg/dl Negative [facility] Work Phone: Squamous epithelial cells de tection in urine sediment by light microscopyon 07-09-2022 Epithelial cells.squamous LM Ql (Urine sed) 0 SEEN /hpf 0-5 [facility] Work Phone: Urine blood detectionon 06-15 RBC Ql (U) 25 /ul Negative [facility] Work Phone: RBC Ql (U) 0-5 SEEN /hpf 0-5 [facility] Work Phone: Urine clarityon 07-09-2022 Clarity (U) Clear Clear [facility] Work Phone: Urine color determinationon 07-09-2022 Color (U) Yellow Yellow [facility] Work Phone: Urine glucose detectionon Glucose Ql (U) Normal mg/dl Normal [facility] Work Phone: Urine leukocyte esterase det ection by dipstickon 07-09-2022 Leukocyte esterase Test strip Ql (U) Negative Negative [facility] Work Phone: Urine pHon 07-09-2022 pH (U) 5.0 [pH] 5.0 - 8.0 [facility] Work Phone: Urine sediment bacteria coun t by microscopy (number/high power field)on 07-09-2022 Bacteria LM.HPF (Urine sed) [#/Area] 1 /[HPF] None Seen [facility] Work Phone: Urine specific gravity measu rementon 07-09-2022 Specific gravity (U) [Rel density] 1.025 1.002-1.03 0 [facility] Work Phone: Urobilinogen Auto test strip Ql (U)on 07-09-2022 Urobilinogen Ql (U) 1 mg/dl Normal [facility] Work Phone: INR in Blood by Coagulation assayon 03-07-2022 INR Coag (Bld) [Relative time] 2.9 {INR} [facility] Laboratory - Coagulationon 0 03-07-2022 PT Coag (PPP) [Time] 30.2 s 11.7-14.9 [facility] Work Phone: Absolute lymphocyte counton 03-02-2022 Lymphocytes Auto (Unsp spec) [#/Vol] 1.26 10*3/uL 0.83-4.51 [facility] Work Phone: Basophil percentageon 2021 Basophil percentage 0 SEEN /hpf 0-5 [facility] Work Phone: Basophils/100 WBC (Bld) 0.4 % 0-1 [facility] Work Phone: Chloride [Moles/Vol] 105 mmol/L 98-107 [facility] Work Phone: Eosinophils/100 WBC (Bld) 2.5 % 0-5 [facility] Work Phone: Glucose [Mass/Vol] 158 mg/dL 74-106 [facility] Work Phone: Comment on above: Fasting Glucose resu lt greater than or equal to 126 mg/dL suggests DIABETES MELLITUS per A.D.A. criteria. Neutrophils (Bld) [#/Vol] 8.8 10*3/uL 2.0-7.7 [facility] Work Phone: Neutrophils/100 WBC (Bld) 78.8 % 47-70 [facility] Work Phone: Potassium [Moles/Vol] 4.2 mmol/L 3.5-5.1 [facility] Work Phone: Sodium [Moles/Vol] 138 mmol/L 136-145 [facility] Work Phone: WBC (Bld) [#/Vol] 11.2 10*3/uL 4.4-11.0 [facility] Work Phone: Bilirubin Test strip Ql (U)o n 03-02-2022 Bilirubin Ql (U) Negative Negative [facility] Work Phone: Blood erythrocytes count (nu mber/volume)on 03-02-2022 RBC (Bld) [#/Vol] 5.15 10*6/uL 4.6-6.2 [facility] Work Phone: Blood hemoglobin measurement (mass/volume)on 03-02-2022 Hemoglobin (Bld) [Mass/Vol] 13.8 g/dL 13.0-16. 5 [facility] Work Phone: Blood lymphocytes/100 leukoc yteson 03-02-2022 Lymphocytes/100 WBC (Bld) 11.2 % 19-41 [facility] Work Phone: Blood monocytes/100 leukocyt eson 03-02-2022 Monocytes/100 WBC (Bld) 5.7 % 0-10 [facility] Work Phone: Blood platelet mean volumeon 03-02-2022 Platelet mean volume (Bld) [Entitic vol] 9.0 fL 6.2-12.0 [facility] Work Phone: Determination of erythrocyte mean corpuscular volume (MCV)on 03-02-2022 MCV (RBC) [Entitic vol] 82.3 fL 80-94 [facility] Work Phone: Glucose Glucometer (BldC) [M ass/Vol]on 03-02-2022 Glucose [Mass/Vol] 158 mg/dL 74-106 [facility] Work Phone: Comment on above: MANAGEMENT OF PATIEN T CARE PER NURSING PROTOCOL Hematocrit Auto (Bld) [Volum e fraction]on 03-02-2022 Hematocrit (Bld) [Volume fraction] 42.4 % 40-54 [facility] Work Phone: Hyaline casts LM.LPF (Urine sed) [#/Area]on 03-02-2022 Hyaline casts (Urine sed) [#/Area] 0 /[LPF] 0-5 [facility] Work Phone: INR in Blood by Coagulation assayon 03-02-2022 INR Coag (Bld) [Relative time] 4.4 {INR} [facility] Work Phone: Comment on above: CRITICAL VALUE VERIF IED. CALLED TO [id number]/19/22 [id number] Nelson Francesca.RESULTS READ BACK BY SAME . Ketones Test strip Ql (U)on 03-02-2022 Ketones Ql (U) 5 mg/dl Negative [facility] Work Phone: Laboratory - Chemistry and C hemistry - challengeon 03-02-2022 CO2 [Moles/Vol] 23.0 mmol/L 21.0-32.0 [facility] Work Phone: Urea nitrogen/Creatinine [Mass ratio] 16.9 mg/mg 10-20 [facility] Work Phone: Laboratory - Coagulationon 0 03-02-2022 PT Coag (PPP) [Time] 41.4 s 11.7-14.9 [facility] Work Phone: Laboratory - Hematology and Cell countson 03-02-2022 Erythrocyte distribution width (RBC) [Entitic vol] 41.4 fL 35.1-43.9 [facility] Work Phone: Erythrocyte distribution width (RBC) [Ratio] 14.0 % 11.6-14.6 [facility] Work Phone: Immature granulocytes/100 WBC (Bld) 1.400 % 0.0-0.9 [facility] Work Phone: Comment on above: IG% - Immature Granu locytes (promyelocytes, myelocytes and metamyelocytes) > 1% indicates that a LEFT SHIFT is Present. MCH (RBC) [Entitic mass] 26.8 pg 27.0-32.0 [facility] Work Phone: Nucleated RBC/100 WBC (Bld) [Ratio] 0 % 0-5 [facility] Work Phone: MCHC Auto (RBC) [Mass/Vol]on 03-02-2022 MCHC (RBC) [Mass/Vol] 32.5 g/dL 32-36 [facility] Work Phone: Mucus LM Ql (Urine sed)on Mucus Ql (Urine sed) 3+ /hpf [facility] Work Phone: Nitrite Test strip Ql (U)on 03-02-2022 Nitrite Ql (U) Negative Negative [facility] Work Phone: No Panel Informationon 03-02 Estimated Creatinine Clearance Calc 49.49 ml/min [facility] Work Phone: Estimated GFR (MDRD) Amer 60 mL/min >60 [facility] Work Phone: Comment on above: GFR Calc Estimated GFR (MDRD) Non-Af Amer 49 mL/min >60 [facility] Work Phone: Comment on above: Non- GFR Calc Troponin I High Sensitivity 11 pg/mL 3.0-78.0 [facility] Work Phone: Comment on above: Please Note: New Thania t Units and Gender Specific Reference Ranges. For more information see Policy Stat Procedure [place] High Sensitivity Troponin (TNIH) and attachments. Platelets bldon 03-02-2022 Platelets (Bld) [#/Vol] 269 10*3/uL 150-450 [facility] Work Phone: Protein Test strip Ql (U)on 03-02-2022 Protein Ql (U) 30 mg/dl Negative [facility] Work Phone: Serum or plasma calcium antoine urement (mass/volume)on 03-02-2022 Calcium [Mass/Vol] 9.4 mg/dL 8.5-10.1 [facility] Work Phone: Serum or plasma creatinine m easurement (mass/volume)on 03-02-2022 Creatinine [Mass/Vol] 1.48 mg/dL 0.70-1.30 [facility] Work Phone: Comment on above: The validity of the calculated GFR & GFRAA in patients over 70 years has not been determined. Clinical correlation is essential. Serum or plasma urea nitroge n measurement (mass/volume)on 03-02-2022 Urea nitrogen [Mass/Vol] 25 mg/dL 7-18 [facility] Work Phone: Squamous epithelial cells de tection in urine sediment by light microscopyon 03-02-2022 Epithelial cells.squamous LM Ql (Urine sed) 0-5 SEEN /hpf 0-5 [facility] Work Phone: Thin prep Papanicolaou smear with manual screeningon 03-02-2022 Thin prep Papanicolaou smear with manual screening 10 5-15 [facility] Work Phone: Urine blood detectionon 02-12 RBC Ql (U) 10 /ul Negative [facility] Work Phone: RBC Ql (U) 0-5 SEEN /hpf 0-5 [facility] Work Phone: Urine clarityon 03-02-2022 Clarity (U) Clear Clear [facility] Work Phone: Urine color determinationon 03-02-2022 Color (U) Yellow Yellow [facility] Work Phone: Urine glucose detectionon Glucose Ql (U) 50 mg/dl Normal [facility] Work Phone: Urine leukocyte esterase det ection by dipstickon 03-02-2022 Leukocyte esterase Test strip Ql (U) Negative Negative [facility] Work Phone: Urine pHon 03-02-2022 pH (U) 5.0 [pH] 5.0 - 8.0 [facility] Work Phone: Urine sediment bacteria coun t by microscopy (number/high power field)on 03-02-2022 Bacteria LM.HPF (Urine sed) [#/Area] 2 /[HPF] None Seen [facility] Work Phone: Urine specific gravity measu rementon 03-02-2022 Specific gravity (U) [Rel density] 1.025 1.002-1.03 0 [facility] Work Phone: Urobilinogen Auto test strip Ql (U)on 03-02-2022 Urobilinogen Ql (U) Normal mg/dl Normal [facility] Work Phone: Liliam 01-09-2022 [facility] Kiara 01-02-2022 JACOBO Telephone (VICTORIANO) RICHARD ROY ([id number]) 1945 M Date Time Provider Department 01/02/22 JUSTINA MONIQUE During your visit today, we recorded the following information about you: Justina Garcia LPN 01/02/2022 7:43 AM Signed ----- Message from Justina Monique APRN.SLEEP TECHNOLOGIST sent at 01/02/2022 7:38 AM EDT ----- [...] mouth once daily. - blood sugar diagnostic ([email or web address] ULTRA TEST) test strip Test blood sugar(s) [...] Status:Closed by JUSTINA GARCIA on 01/02/22 Normal [facility] CBC W Auto Differential pane l (Bld)on 01-01-2022 Abs Immature Gran 0.15 k/uL High <0.10 k/uL [facility] Basophils (Bld) [#/Vol] 0.06 10*3/uL <0.11 k/uL [facility] Basophils/100 WBC (Bld) 0.5 % [facility] Differential cell count method Nom (Bld) Auto [facility] Eosinophils (Bld) [#/Vol] 0.39 10*3/uL <0.46 k/ uL [facility] Eosinophils/100 WBC (Bld) 3.1 % [facility] Erythrocyte distribution width (RBC) [Ratio] 14.5 % 11.5 - 15.0 % [facility] Hematocrit (Bld) [Volume fraction] 46.6 % 39.0 - 51.0 % [facility] Hemoglobin (Bld) [Mass/Vol] 14.5 g/dL 13.0 - 17.0 g/dL [facility] Immature Gran % 1.2 % [facility] Lymphocytes (Bld) [#/Vol] 1.81 10*3/uL 1. 00 - 4.00 k/uL [facility] Lymphocytes/100 WBC (Bld) 14.5 % [facility] MCH (RBC) [Entitic mass] 26.6 pg 26. 0 - 34.0 pg [facility] MCHC (RBC) [Mass/Vol] 31.1 g/dL 30.5 - 36.0 g/dL [facility] MCV (RBC) [Entitic vol] 85.3 fL 80.0 - 100.0 fL [facility] Monocytes (Bld) [#/Vol] 0.86 10*3/uL <0.87 k/uL [facility] Monocytes/100 WBC (Bld) 6.9 % [facility] Neutrophils (Bld) [#/Vol] 9.20 10*3/uL High 1. 45 - 7.50 k/uL [facility] Neutrophils/100 WBC (Bld) 73.8 % [facility] Nucleated RBC (Bld) [#/Vol] 10*3/uL <0.01 k/ uL [facility] Nucleated RBC/100 WBC (Bld) [Ratio] 0.0 /100 WBC [facility] Platelet mean volume (Bld) [Entitic vol] 9.7 fL 9.0 - 12.7 fL [facility] Platelets (Bld) [#/Vol] 287 10*3/uL 150 - 400 k/uL [facility] RBC (Bld) [#/Vol] 5.46 10*6/uL 4.20 - 6.00 m/uL [facility] WBC (Bld) [#/Vol] 12.47 10*3/uL High 3.70 - 11.00 k/uL [facility] Comprehensive metabolic 2000 panelon 01-01-2022 Albumin [Mass/Vol] 4.2 g/dL 3.9 - 4.9 g/dL [facility] ALP [Catalytic activity/Vol] 96 U/L 38 - 113 U/L [facility] ALT [Catalytic activity/Vol] 29 U/L 10 - 54 U/L [facility] Anion gap [Moles/Vol] 12 mmol/L 9 - 18 mmol/L [facility] AST [Catalytic activity/Vol] 20 U/L 14 - 40 U/L [facility] Bilirubin [Mass/Vol] 0.6 mg/dL 0.2 - 1 .3 mg/dL [facility] Calcium [Mass/Vol] 9.4 mg/dL 8.5 - 10. 2 mg/dL [facility] Chloride [Moles/Vol] 101 mmol/L 97 - 10 5 mmol/L [facility] CO2 [Moles/Vol] 25 mmol/L 22 - 30 mmol/L [facility] Creatinine [Mass/Vol] 1.20 mg/dL 0.73 - 1.22 mg/dL [facility] Estimated Glomerular Filtration Rate 63 mL/min/1.73m >=60 mL/min/1.7 3m [facility] Glucose [Mass/Vol] 118 mg/dL High 74 - 99 mg/dL [facility] Potassium [Moles/Vol] 4.4 mmol/L 3.7 - 5.1 mmol/L [facility] Protein [Mass/Vol] 6.6 g/dL 6.3 - 8.0 g/dL [facility] Sodium [Moles/Vol] 138 mmol/L 136 - 144 mmol/L [facility] Urea nitrogen [Mass/Vol] 15 mg/dL 9 - 24 mg/dL [facility] PSA/PROSTSPECAG SCRNon 01-01 Prostate specific Ag [Mass/Vol] 1.75 ng/mL <2.60 ng/mL [facility] UA DIP, URINE (POC)on 2021 BILIRUBIN UA (POCT) Negative Negative [facility] CLARITY UA (POCT) Clear [facility] COLOR UA (POCT) Dark yellow [facility] GLUCOSE UA (POCT) 100 mg/dL Abnormal Negative mg/dL [facility] HEMOGLOBIN/BLOOD UA (POCT) Trace-intact Abnormal Negativ e [facility] KETONE UA (POCT) Negative Negative mg/dL [facility] LEUKOCYTES UA (POCT) Negative Negative [facility] NITRITE UA (POCT) Negative Negative [facility] PH UA (POCT) 5.5 4.5 - 8.0 [facility] Protein Ql (U) 30 mg/dL Abnormal Negative mg/dL [facility] SPECIFIC GRAVITY UA (POCT) >=1.030 1 .005 - 1.030 [facility] UROBILINOGEN UA (POCT) 1.0 E.U./dL Lanette l E.U./dL [facility] VITAMIN B12 BLOODon 01-02-20 Cobalamin (Vitamin B12) [Mass/Vol] 377 pg/mL 232-1,245 pg/mL [facility] Absolute lymphocyte counton 12-29-2021 Lymphocytes Auto (Unsp spec) [#/Vol] 1.56 10*3/uL 0.83-4.51 [facility] Work Phone: BCIDon 12-29-2021 Acinetobacter justen-baumanii complex Not detected Normal Not Detected [facility] ([place]) Comment on above: Performed By: #### B JIN #### [place] [id number] Bacteroides fragilis Not detected Normal Not Detected [facility] [place] Comment on above: Performed By: #### B JIN #### [place] [address] BCID Comment See Comment Normal [facility] [place] Comment on above: Result Comment: Anti [...] follow. Performed By: #### B JIN #### [place] [address] Kellie albicans Not detected Normal Not Detected [facility] ([place]) Comment on above: Performed By: #### B JIN #### [place] [address] Kellie auris Not detected Normal Not Detected [facility] ([place] Comment on above: Performed By: #### B JIN #### [place] [id number] Kellie glabrata Not detected Normal Not Detected [facility] ([place] Comment on above: Performed By: #### B JIN #### [place] [address] Kellie krusei Not detected Normal Not Detected [facility] ([place] Comment on above: Performed By: #### B JIN #### [facility] [address] [place] [address] Kellie parapsilosis Not detected Normal Not Detected [facility] ([place]) Comment on above: Performed By: #### B JIN #### [facility] [address] [place], [place] [id number] Kellie tropicalis Not detected Normal Not Detected [facility] ([place]) Comment on above: Performed By: #### B JIN #### [facility] [address] [place] [address] Cryptococcus neoformans-gattii Not detected Normal Not Detected [facility] ([place]) Comment on above: Performed By: #### B JIN #### [facility] [address] [place] [address] CTX-M (ESBL) Not Applicable Normal Not Detected [facility] ([place]) Comment on above: Performed By: #### B JIN #### [place] [address] E. Coli Not detected Normal Not Detected [facility] ([place]) Comment on above: Performed By: #### B JIN #### [place] [address] Enterobacter cloacae Complex Not detected Normal Not Detected [facility] ([place]) Comment on above: Performed By: #### B JIN #### [place] [address] Enterobacterales Not detected Normal Not Detected [facility] ([place]) Comment on above: Performed By: #### B JIN #### [place] [address] Enterococcus faecalis Not detected Normal Not Detected [facility] ([place]) Comment on above: Performed By: #### B JIN #### [facility] [address] [place], [place] [id number] Enterococcus faecium Not detected Normal Not Detected [facility] ([place]) Comment on above: Performed By: #### B JIN #### [place] [address] Haemophilus influenzae Not detected Normal Not Detected [facility] ([place]) Comment on above: Performed By: #### B JIN #### [place] [id number] IMP (Carbapenemase) Not Applicable Normal Not Detected [facility] ([place]) Comment on above: Performed By: #### B JIN #### [place] [address] Klebsiella aerogenes Not detected Normal Not Detected [facility] ([place]) Comment on above: Performed By: #### B JIN #### [place] [address] Klebsiella oxytoca Not detected Normal Not Detected [facility] ([place]) Comment on above: Performed By: #### B JIN #### [place] [address] Klebsiella pneumoniae group Not detected Normal Not Detected [facility] ([place] Comment [place]: Performed By: #### B JIN #### [place] [address] KPC (Carbapenemase) Not Applicable Normal Not Detected [facility] ([place] Comment on above: Performed By: #### B JNI #### [place] [address] Listeria monocytogenes Not detected Normal Not Detected [facility] ([place]) Comment on above: Performed By: #### B JIN #### [place] [address] MCR-1 (Colistin Resistance) Not Applicable Normal Not Detected [facility] [place] Comment on above: Performed By: #### B JIN #### [place] [address] Mec A/C Detected Abnormal Not Detected [facility] [place] Comment on above: Performed By: #### B JIN #### [place] [address] Mec A/C-MREJ (MRSA) Not Applicable Normal Not Detected [facility] [place] Comment on above: Performed By: #### B JIN #### [place] [address] NDM (Carbapenemase) Not Applicable Normal Not Detected [facility] [place] Comment on above: Performed By: #### B JIN #### [place] [address] Neisseria meningitidis (Encapsalated) Not detected Normal Not Detected [facility] [place] Comment on above: Performed By: #### B JIN #### [place] [address] OXA-48 like (Carbapenemase) Not Applicable Normal Not Detected [facility] ([place]) Comment on above: Performed By: #### B JIN #### [place] [address] Proteus Not detected Normal Not Detected [facility] ([place]) Comment on above: Performed By: #### B JIN #### [place] [address] Pseudomonas aeruginosa Not detected Normal Not Detected [facility] [place] Comment on above: Performed By: #### B JIN #### [place] [address] S. agalactiae Org specific cx Ql (Vag fld) Not detected Normal Not Detected [facility] [place] Comment on above: Performed By: #### B JIN #### [place] [address] Salmonella species Not detected Normal Not Detected [facility] ([place] Comment on above: Performed By: #### B JIN #### [place] [address] Serratia marcescens Not detected Normal Not Detected [facility] ([place] Comment on above: Performed By: #### B JIN #### [place] [address] Staphylococcus Detected Abnormal Not Detected [facility] ([place] Comment on above: Performed By: #### B JIN #### [place] [address] Staphylococcus aureus Not detected Normal Not Detected [facility] ([place] Comment on above: Result Comment: If S taphylococcus aureus is Detected, an Infectious Disease physician consult is required on identification. Performed By: #### B JIN #### [place] [address] Staphylococcus epidermidis Detected Abnormal N ot Detected [facility] ([place] Comment on above: Performed By: #### B JIN #### [place] [address] Staphylococcus lugdunensis Not detected Normal N ot Detected [facility] ([place] Comment on above: Performed By: #### B JIN #### [place] [address] Stenotropomonas maltophilia Not detected Normal Not Detected [facility] ([place] Comment on above: Performed By: #### B JIN #### [place] [address] Streptococcus Not detected Normal Not Detected [facility] ([place] Comment on above: Performed By: #### B JIN #### [place] [address] Streptococcus pneumoniae Not detected Normal Not Detected [facility] ([place] Comment on above: Performed By: #### B JIN #### [place] [address] Streptococcus pyogenes Not detected Normal Not Detected [facility] ([place] Comment on above: Performed By: #### B JIN #### [place] [address] Van A/B Not Applicable Normal Not Detected [facility] ([place] Comment on above: Performed By: #### B JIN #### [place] [address] VIM (Carbapenemase) Not Applicable Normal Not Detected [facility] ([place] Comment on above: Performed By: #### B JIN #### [place] [address] Basophil percentageon 2021 Basophils/100 WBC (Bld) 0.3 % 0-1 [facility] Work Phone: [phone] Chloride [Moles/Vol] 108 mmol/L 98-107 [facility] Work Phone: Eosinophils/100 WBC (Bld) 3.2 % 0-5 [facility] Work Phone: Glucose [Mass/Vol] 109 mg/dL 74-106 [facility] Work Phone: Comment on above: Fasting Glucose resu lt from 100 to 125 mg/dL suggests IMPAIRED HOMEOSTASIS per A.D.A. criteria. Neutrophils (Bld) [#/Vol] 6.6 10*3/uL 2.0-7.7 [facility] Work Phone: Neutrophils/100 WBC (Bld) 70.4 % 47-70 [facility] Work Phone: Potassium [Moles/Vol] 4.1 mmol/L 3.5-5.1 [facility] Work Phone: [phone] Sodium [Moles/Vol] 140 mmol/L 136-145 [facility] Work Phone: WBC (Bld) [#/Vol] 9.4 10*3/uL 4.4-11.0 [facility] Work Phone: Blood erythrocytes count (nu mber/volume)on 12-29-2021 RBC (Bld) [#/Vol] 4.61 10*6/uL 4.6-6.2 [facility] Work Phone: Blood hemoglobin measurement (mass/volume)on 12-29-2021 Hemoglobin (Bld) [Mass/Vol] 12.4 g/dL 13.0-16. 5 [facility] Work Phone: Blood lymphocytes/100 leukoc yteson 12-29-2021 Lymphocytes/100 WBC (Bld) 16.7 % 19-41 [facility] Work Phone: [phone] Blood monocytes/100 leukocyt eson 12-29-2021 Monocytes/100 WBC (Bld) 8.7 % 0-10 [facility] Work Phone: Blood platelet mean volumeon 12-29-2021 Platelet mean volume (Bld) [Entitic vol] 9.3 fL 6.2-12.0 [facility] Work Phone: [phone] Determination of erythrocyte mean corpuscular volume (MCV)on 12-29-2021 MCV (RBC) [Entitic vol] 82.9 fL 80-94 [facility] Work Phone: Glucose Glucometer (BldC) [M ass/Vol]on 12-29-2021 Glucose [Mass/Vol] 129 mg/dL 74-106 [facility] Work Phone: Comment on above: MANAGEMENT OF PATIEN T CARE PER NURSING PROTOCOL Hematocrit Auto (Bld) [Volum e fraction]on 12-29-2021 Hematocrit (Bld) [Volume fraction] 38.2 % 40-54 [facility] Work Phone: Laboratory - Chemistry and C hemistry - challengeon 12-29-2021 CO2 [Moles/Vol] 27.0 mmol/L 21.0-32.0 [facility] Work Phone: Urea nitrogen/Creatinine [Mass ratio] 16.5 mg/mg 10-20 [facility] Work Phone: Laboratory - Hematology and Cell countson 12-29-2021 Erythrocyte distribution width (RBC) [Entitic vol] 42.5 fL 35.1-43.9 [facility] Work Phone: Erythrocyte distribution width (RBC) [Ratio] 14.2 % 11.6-14.6 [facility] Work Phone: Immature granulocytes/100 WBC (Bld) 0.700 % 0.0-0.9 [facility] Work Phone: Comment on above: IG% - Immature Granu locytes (promyelocytes, myelocytes and metamyelocytes) > 1% indicates that a LEFT SHIFT is Present. MCH (RBC) [Entitic mass] 26.9 pg 27.0-32.0 [facility] Work Phone: Nucleated RBC/100 WBC (Bld) [Ratio] 0 % 0-5 [facility] Work Phone: MCHC Auto (RBC) [Mass/Vol]on 12-29-2021 MCHC (RBC) [Mass/Vol] 32.5 g/dL 32-36 [facility] Work Phone: No Panel Informationon 12-29 Estimated Creatinine Clearance Calc 71.11 ml/min [facility] Work Phone: Estimated GFR (MDRD) Amer 91 mL/min >60 [facility] Work Phone: Comment on above: GFR Calc Estimated GFR (MDRD) Non-Af Amer 75 mL/min >60 [facility] Work Phone: Comment on above: Non- GFR Calc Platelets bldon 12-29-2021 Platelets (Bld) [#/Vol] 177 10*3/uL 150-450 [facility] Work Phone: Serum or plasma calcium antoine urement (mass/volume)on 12-29-2021 Calcium [Mass/Vol] 8.4 mg/dL 8.5-10.1 [facility] [place] [place] Work Phone: Serum or plasma creatinine m easurement (mass/volume)on 12-29-2021 Creatinine [Mass/Vol] 1.03 mg/dL 0.70-1.30 [facility] Work Phone: Comment on above: The validity of the calculated GFR & GFRAA in patients over 70 years has not been determined. Clinical correlation is essential. Serum or plasma urea nitroge n measurement (mass/volume)on 12-29-2021 Urea nitrogen [Mass/Vol] 17 mg/dL 7-18 [facility] Work Phone: Thin prep Papanicolaou smear with manual screeningon 12-29-2021 Thin prep Papanicolaou smear with manual screening 5 5-[address] [facility] [place] [place] Work Phone: Basophil percentageon 2021 Lactate [Moles/Vol] 1.9 mmol/L 0.4-2.0 [facility] Work Phone: COon 12-28-2021 Carbon Monoxide Level See Comments Normal [facility] ([place]) Comment on above: Order Comment: See S eparate Report Performed By: #### L IP, MG, TROPHS, CK, LAC, GFR, CO, CMP ####[id number] [place], [place] [address] Laboratory - Chemistry and C hemistry - challengeon 12-28-2021 Magnesium [Mass/Vol] 1.8 mg/dL 1.6-2.6 [facility] Work Phone: No Panel Informationon 12-28 Troponin I High Sensitivity 23 pg/mL 3.0-78.0 [facility] Work Phone: Comment on above: Please Note: New Thania t Units and Gender Specific Reference Ranges. For more information see Policy Stat Procedure [place] High Sensitivity Troponin (TNIH) and attachments. .Auto Diffon 12-27-2021 Basophil, Absolute 0.1 10 3/mcL Normal 0.0-0.2 [facility] ([place]) Comment on above: Performed By: #### L IP, MG, TROPHS, CK, LAC, GFR, CO, CMP #### [address] [address] Basophils/100 WBC (Bld) 0.4 % Normal 0.0-2.5 [facility] ([place]) Comment on above: Performed By: #### L IP, MG, TROPHS, CK, LAC, GFR, CO, CMP #### [address] [address] Eosinophil, Absolute 0.1 10 3/mcL Normal 0.0-0.4 [facility] ([place]) Comment on above: Performed By: #### L IP, MG, TROPHS, CK, LAC, GFR, CO, CMP #### [address] [address] Eosinophils/100 WBC (Bld) 0.7 % Normal 0.0-7.0 [facility] ([place]) Comment on above: Performed By: #### L IP, MG, TROPHS, CK, LAC, GFR, CO, CMP #### [address] [address] Lymphocyte, Absolute 1.4 10 3/mcL Normal 0.8-3.9 [facility] ([place]) Comment on above: Performed By: #### L IP, MG, TROPHS, CK, LAC, GFR, CO, CMP #### [address] [address] Lymphocytes/100 WBC (Bld) 9.6 % Low 10.0-50.0 [facility] ([place]) Comment on above: Performed By: #### L IP, MG, TROPHS, CK, LAC, GFR, CO, CMP #### [address] [address] Monocyte, Absolute 0.8 10 3/mcL Normal 0.2-1.0 [facility] ([place]) Comment on above: Performed By: #### L IP, MG, TROPHS, CK, LAC, GFR, CO, CMP #### [address] [address] Monocytes/100 WBC (Bld) 5.3 % Normal 1.7-13.0 [facility] ([place]) Comment on above: Performed By: #### L IP, MG, TROPHS, CK, LAC, GFR, CO, CMP #### [address] [address] Neutrophils/100 WBC (Bld) 84.0 % High 37.0-80.0 [facility] ([place]) Comment on above: Performed By: #### L IP, MG, TROPHS, CK, LAC, GFR, CO, CMP #### [address] [address] .GFRon 12-27-2021 GFR 43 ml/min/1.73sqm Normal [facility] ([place]) Comment on above: Result Comment: GFR Population [...] CK, LAC, GFR, CO, CMP ####[address] [place], [place] [address] GFR Non- 35 ml/min/1.73sqm Normal [facility] ([place]) Comment on above: Result Comment: GFR Population [...] CK, LAC, GFR, CO, CMP ####[address] [place], [place] [address] .MDWon 12-27-2021 Monocyte Distribution Width 15.91 Normal 0.00-20. 00 [facility] ([place]) Comment on above: Result Comment: For ED adult patients suspected of sepsis, MDW<=20.0 does not rule out sepsis or risk of sepsis Performed By: #### L IP, MG, TROPHS, CK, LAC, GFR, CO, CMP ####[address] [place], [place] [address] .NEUABSon 12-27-2021 Neutrophil, Absolute 12.6 10 3/mcL High 2.9-6.2 [facility] ([place]) Comment on above: Performed By: #### L IP, MG, TROPHS, CK, LAC, GFR, CO, CMP ####[address] [place], [place] [address] Basophil percentageon 2021 Basophil percentage 3.8 mg/dL 2.5-4.9 [facility] Work Phone: Bilirubin [Mass/Vol] 0.80 mg/dL 0.20-1.00 [facility] Work Phone: Comment on above: For patients on eltr ombopag therapy, use of Dimension [place] TBIL is not recommended. Protein [Mass/Vol] 6.3 g/dL 6.4-8.2 [facility] Work Phone: CBCon 12-27-2021 Erythrocyte distribution width (RBC) [Ratio] 14.9 % High 11.5-14.5 [facility] ([place]) Comment on above: Performed By: #### L IP, MG, TROPHS, CK, LAC, GFR, CO, CMP #### [place] [id number] Hematocrit (Bld) [Volume fraction] 43.2 % Normal 42.0-52.0 [facility] ([place]) Comment on above: Performed By: #### L IP, MG, TROPHS, CK, LAC, GFR, CO, CMP #### [place] [id number] Hgb 14.4 G/dL Normal 14.0-18.0 [facility] ([place]) Comment on above: Performed By: #### L IP, MG, TROPHS, CK, LAC, GFR, CO, CMP #### [address] [address] MCH (RBC) [Entitic mass] 26.8 pg Low 27.0-31.2 [facility] ([place]) Comment on above: Performed By: #### L IP, MG, TROPHS, CK, LAC, GFR, CO, CMP #### [address] [address] MCHC 33.4 G/dL Normal 31.8-35.4 [facility] ([place]) Comment on above: Performed By: #### L IP, MG, TROPHS, CK, LAC, GFR, CO, CMP #### [address] [address] MCV (RBC) [Entitic vol] 80.2 fL Normal 80.0-94.0 [facility] ([place]) Comment on above: Performed By: #### L IP, MG, TROPHS, CK, LAC, GFR, CO, CMP #### [address] [address] Platelet 305 10 3/mcL Normal 130-400 [facility] ([place]) Comment on above: Performed By: #### L IP, MG, TROPHS, CK, LAC, GFR, CO, CMP #### [address] [address] Platelet mean volume (Bld) [Entitic vol] 7.5 fL Normal 7.4-10.4 [facility] ([place]) Comment on above: Performed By: #### L IP, MG, TROPHS, CK, LAC, GFR, CO, CMP #### [address] [address] RBC 5.39 10 6/mcL Normal 4.04-6.13 [facility] ([place]) Comment on above: Performed By: #### L IP, MG, TROPHS, CK, LAC, GFR, CO, CMP #### [address] [address] WBC 15.0 10 3/mcL High 4.6-10.8 [facility] ([place]) Comment on above: Performed By: #### L IP, MG, TROPHS, CK, LAC, GFR, CO, CMP #### [address] [address] CKon 12-27-2021 CK [Catalytic activity/Vol] 220 U/L Normal 39-308 [facility] ([place]) Comment on above: Performed By: #### L IP, MG, TROPHS, CK, LAC, GFR, CO, CMP ####[address] [address] CMPon 12-27-2021 Albumin Level 3.8 G/dL Normal 3.4-4.8 [facility] ([place]) Comment on above: Performed By: #### L IP, MG, TROPHS, CK, LAC, GFR, CO, CMP ####[place] [address] [place], [place] [address] Albumin/Globulin [Mass ratio] 1.4 {ratio} Normal 1.1-2.5 [facility] ([place]) Comment on above: Performed By: #### L IP, MG, TROPHS, CK, LAC, GFR, CO, CMP ####[address] [place], [place] [address] ALP [Catalytic activity/Vol] 105 U/L Normal 40-135 [facility] ([place]) Comment on above: Performed By: #### L IP, MG, TROPHS, CK, LAC, GFR, CO, CMP ####[address] [place], [place] [address] ALT [Catalytic activity/Vol] 20 U/L Normal 16-63 [facility] ([place]) Comment on above: Performed By: #### L IP, MG, TROPHS, CK, LAC, GFR, CO, CMP ####[address] [place], [place] [address] AST [Catalytic activity/Vol] 16 U/L Normal 10-40 [facility] ([place]) Comment on above: Performed By: #### L IP, MG, TROPHS, CK, LAC, GFR, CO, CMP ####[address] [place], [place] [address] Bili Total 0.8 mg/dL Normal 0.2-1.0 [facility] ([place]) Comment on above: Result Comment: Use of this assay is not recommended for patients undergoing treatment with eltrombopag due to the potential for falsely elevated results. Performed By: #### L IP, MG, TROPHS, CK, LAC, GFR, CO, CMP ####[address] [place], [place] [address] BUN/Creatinine Ratio 12 ratio Normal 7-27 [facility] ([place]) Comment on above: Performed By: #### L IP, MG, TROPHS, CK, LAC, GFR, CO, CMP ####[address] [place], [place] [address] Calcium [Mass/Vol] 9.4 mg/dL Normal 8.4-10.2 [facility] ([place]) Comment on above: Performed By: #### L IP, MG, TROPHS, CK, LAC, GFR, CO, CMP ####[address] [place], [place] [address] Chloride [Moles/Vol] 104 mmol/L Normal 98-107 [facility] ([place]) Comment on above: Performed By: #### L IP, MG, TROPHS, CK, LAC, GFR, CO, CMP ####[address] [place], [place] [address] CO2 [Moles/Vol] 22 mmol/L Low 23-31 [facility] ([place]) Comment on above: Performed By: #### L IP, MG, TROPHS, CK, LAC, GFR, CO, CMP ####[address] [place], [place] [address] Creatinine [Mass/Vol] 1.88 mg/dL High 0.70-1.30 [facility] ([place]) Comment on above: Performed By: #### L IP, MG, TROPHS, CK, LAC, GFR, CO, CMP ####[address] [place], [place] [address] Electrolyte Balance 13.0 mEq/L Normal 4.0-15.0 [facility] ([place]) Comment on above: Performed By: #### L IP, MG, TROPHS, CK, LAC, GFR, CO, CMP ####[address] [place], [place] [address] Globulin 2.8 G/dL Normal [facility] ([place]) Comment on above: Performed By: #### L IP, MG, TROPHS, CK, LAC, GFR, CO, CMP ####[address] [place], [place] [address] Glucose [Mass/Vol] 205 mg/dL High 83-110 [facility] ([place]) Comment on above: Performed By: #### L IP, MG, TROPHS, CK, LAC, GFR, CO, CMP ####[address] [place], [place] [address] Potassium [Moles/Vol] 5.2 mmol/L High 3.5-5.1 [facility] ([place]) Comment on above: Performed By: #### L IP, MG, TROPHS, CK, LAC, GFR, CO, CMP ####[address] [place], [place] [address] Sodium [Moles/Vol] 139 mmol/L Normal 136-145 [facility] ([place]) Comment on above: Performed By: #### L IP, MG, TROPHS, CK, LAC, GFR, CO, CMP ####[address] [place], [place] [address] Total Protein 6.6 G/dL Normal 6.4-8.2 [facility] ([place]) Comment on above: Performed By: #### L IP, MG, TROPHS, CK, LAC, GFR, CO, CMP ####[address] [place], [place] [address] Urea nitrogen [Mass/Vol] 23 mg/dL High 7-18 [facility] ([place]) Comment on above: Performed By: #### L IP, MG, TROPHS, CK, LAC, GFR, CO, CMP ####[address] [address] [id number] 12-27-2021 Date of Onset [id number] Invalid Interpretation Code [facility] ([place]) Comment on above: Performed By: #### Gabrielle OVD19, FLURSV #### [place] [address] Employed in Healthcare No [facility] ([place]) Comment on above: Performed By: #### Gabrielle OVD19, FLURSV #### [address] [address] First Test No [facility] ([place]) Comment on above: Performed By: #### Gabrielle OVD19, FLURSV #### [address] [address] Hospitalized No [facility] ([place]) Comment on above: Performed By: #### Gabrielle OVD19, FLURSV #### [address] [address] [facility] ([place]) Comment on above: Performed By: #### C OVD19, FLURSV #### [place] [address] [facility] ([place]) Comment on above: Performed By: #### C OVD19, FLURSV #### [place] [address] Resides in Congregate Care Setting No Normal [facility] ([place]) Comment on above: Performed By: #### C OVD19, FLURSV #### [place] [address] SARS-CoV-2 (COVID-19) RNA ANGELY+probe Ql (Unsp spec) Positive Abnormal Negative [facility] ([place]) Comment on above: Performed By: #### C OVD19, FLURSV #### [place] [address] SARS-CoV-2 (COVID-19) RNA ANGELY+probe Ql (Unsp spec) Normal [facility] ([place]) Comment on above: Result Comment: Posi tive results are indicative of the presence of SARS-CoV-2 RNA; clinical correlation with patient history and other diagnostic information is necessary to determine patient infection status. Positive results do not rule out bacterial infection or co-infection with other viruses. The agent detected may not be the definite cause of disease. Laboratories within the [facility] and its territories are required to report [...] By: #### C OVD19, FLURSV #### [address] [place] [address] [place], [place] [address] Symptomatic as Defined by CDC No Normal [facility] ([place]) Comment on above: Performed By: #### C OVD19, FLURSV #### [address] [place] [address] [place], [place] [address] CT HEAD OR BRAIN W/O CONTRAS Ton [...] 7:53:25 PM Ordering Provider: SREEDHAR LINARES Normal [facility] ([place]) Carboxyhemoglobinon 06-15-20 22 Carboxyhemoglobin (Bld) [Mass/Vol] 1.9 % 0.0-1.5 [facility] Work Phone: Comment on above: * NON-SMOKER RANGE 1 .6 - 5.0% * LIGHT SMOKER RANGE 5.1 - 9.0% * HEAVY SMOKER RANGE FLURSVon 12-27-2021 Flu A PCR (AO) Negative Normal Negative [facility] ([place]) Comment on above: Result Comment: Posi tive [...] REPEAT COLLECTION AND TESTING IS RECOMMENDED. The [employer] Flu A/B & RSV Assay is a real-time polymerase chain reaction (PCR) based qualitative in vitro diagnostic test for the direct detection and differentiation of influenza A virus, influenza B virus, and respiratory syncytial virus (RSV) nucleic acid in nasopharyngeal swab ([employer]) specimens from patients with signs and symptoms of respiratory infection in conjunction with clinical and laboratory findings. The test is intended for use as an aid in the differential diagnosis of influenza A virus, influenza B virus, and RSV in humans and is not intended to detect influenza C. Performed By: #### C OVD19, FLURSV #### [facility] [address] [place], [place] [address] Flu B PCR (AO) Negative Normal Negative [facility] ([place]) Comment on above: Result Comment: Posi tive [...] virus (RSV) nucleic acid in nasopharyngeal swab ([employer]) specimens from patients with signs and symptoms of respiratory infection in conjunction with clinical and laboratory findings. The test is intended for use as an aid in the differential diagnosis of influenza A virus, influenza B virus, and RSV in humans and is not intended to detect influenza C. Performed By: #### C OVD19, FLURSV #### [address] [address] RSV PCR (AO) Negative Normal Negative [facility] ([place]) Comment on above: Result Comment: Posi tive [...] virus (RSV) nucleic acid in nasopharyngeal swab ([employer]) specimens from patients with signs and symptoms of respiratory infection in conjunction with clinical and laboratory findings. The test is intended for use as an aid in the differential diagnosis of influenza A virus, influenza B virus, and RSV in humans and is not intended to detect influenza C. Performed By: #### C OVD19, FLURSV #### [address] [place], [place] [address] INR in Blood by Coagulation assayon 12-27-2021 INR Coag (Bld) [Relative time] 2.4 {INR} [facility] [facility] Work Phone: LABORATORYOrdered By: Ramiro Rascon [...] definite cause of disease. Laboratories within the [facility] and its territories are required to report [...] Lactic Acid Lvl 3.0 mmol/L High 0.4-2.0 [facility] ([place]) Comment on above: Performed By: #### L AC #### [address] [place], [place] [address] Lactic Acid Lvl 4.6 mmol/L High 0.4-2.0 [facility] ([place]) Comment on above: Performed By: #### L IP, MG, TROPHS, CK, LAC, GFR, CO, CMP ####[address] [place], [place] [address] LIPon 12-27-2021 Lipase Level 67 U/L Low 73-393 [facility] ([place]) Comment on above: Performed By: #### L IP, MG, TROPHS, CK, LAC, GFR, CO, CMP ####[address] [place], [place] [address] Laboratory - Chemistry and C hemistry - challengeon 12-27-2021 ALP [Catalytic activity/Vol] 89 U/L 45-117 [facility] Work Phone: ALT [Catalytic activity/Vol] 26 U/L 16-61 [facility] Work Phone: Globulin (S) [Mass/Vol] 3.1 g/dL 2.2-4.2 [facility] Work Phone: Laboratory - Coagulationon 0 12-27-2021 PT Coag (PPP) [Time] 25.5 s 11.7-14.9 [facility] Work Phone: MGon 12-27-2021 Magnesium [Mass/Vol] 1.3 mg/dL Low 1.8-2.4 [facility] ([place]) Comment on above: Performed By: #### L IP, MG, TROPHS, CK, LAC, GFR, CO, CMP ####[facility] [place], [place] [address] PROon 12-27-2021 INR Coag (PPP) [Relative time] 2.7 {INR} High 0.9-1.2 [facility] ([place]) Comment on above: Result Comment: Tony bernard Dose 2.0 - 3.0 High Dose 2.5 - 3.5 The recommended therapeutic range for oral anticoagulant therapy is: LOW RISK: Prophylaxis of venous thrombosis INR: 2.0 - 3.0 Treatment of pulmonary embolism 2.0 - 3.0 Prevention of systemic embolism 2.0 - 3.0 HIGH RISK: Mechanical prosthetic valves 2.5 - 3.5 Performed By: #### P RO #### [id number] [place], [place] [address] PT Coag (PPP) [Time] 31.6 s High 9.7-14.3 [facility] ([place]) Comment on above: Performed By: #### P RO #### [address] [address] Serum or plasma albumin antoine urement (mass/volume)on 12-27-2021 Albumin [Mass/Vol] 3.2 g/dL 3.2-5.0 [facility] Work Phone: Serum or plasma albumin/glob ulin mass ratioon 12-27-2021 Albumin/Globulin [Mass ratio] 1.0 {ratio} 0.9-2.4 [facility] Work Phone: TROPHSon 12-27-2021 Troponin I High Sensitivity 11.1 ng/L Normal 0.0-76.2 [facility] ([place]) Comment on above: Performed By: #### L IP, MG, TROPHS, CK, LAC, GFR, CO, CMP #### [id number] [place], [place] [address] Thin prep Papanicolaou smear with manual screeningon 12-27-2021 Thin prep Papanicolaou smear with manual screening 44 U/L 15- [facility] Work Phone: XR CHEST 1 VIEWon 12-27-2021 [...] 12/27/2021 6:23:59 PM Ordering Provider: SREEDHAR LINARES [facility] ([place]) Absolute lymphocyte counton 12-06-2021 Lymphocytes Auto (Unsp spec) [#/Vol] 0.42 10*3/uL 0.83-4.51 [facility] Work Phone: Basophil percentageon 2021 Basophils/100 WBC (Bld) 0.4 % 0-1 [facility] Work Phone: Chloride [Moles/Vol] 105 mmol/L 98-107 [facility] Work Phone: Eosinophils/100 WBC (Bld) 2.3 % 0-5 [facility] Work Phone: Glucose [Mass/Vol] 138 mg/dL 74-106 [facility] Work Phone: Comment on above: Fasting Glucose resu lt greater than or equal to 126 mg/dL suggests DIABETES MELLITUS per A.D.A. criteria. Neutrophils (Bld) [#/Vol] 7.5 10*3/uL 2.0-7.7 [facility] Work Phone: Neutrophils/100 WBC (Bld) 81.2 % 47-70 [facility] Work Phone: Potassium [Moles/Vol] 3.7 mmol/L 3.5-5.1 [facility] Work Phone: [phone] Sodium [Moles/Vol] 138 mmol/L 136-145 [facility] Work Phone: WBC (Bld) [#/Vol] 9.3 10*3/uL 4.4-11.0 [facility] Work Phone: Basophil percentage 0-5 SEEN /hpf 0-5 [facility] Work Phone: Bilirubin Test strip Ql (U)o n 12-06-2021 Bilirubin Ql (U) Negative Negative [facility] Work Phone: Blood erythrocytes count (nu mber/volume)on 12-06-2021 RBC (Bld) [#/Vol] 5.07 10*6/uL 4.6-6.2 [facility] Work Phone: Blood hemoglobin measurement (mass/volume)on 12-06-2021 Hemoglobin (Bld) [Mass/Vol] 13.8 g/dL 13.0-16. 5 [facility] Work Phone: Blood lymphocytes/100 leukoc yteson 12-06-2021 Lymphocytes/100 WBC (Bld) 4.5 % 19-41 [facility] Work Phone: Blood manual differential co mment interpretation (narrative result)on 12-06-2021 Manual differential comment Ori (Bld) [Interp] SCANNED [facility] Work Phone: Comment on above: LYMPHOPENIA NOTED Blood monocytes/100 leukocyt eson 12-06-2021 Monocytes/100 WBC (Bld) 8.6 % 0-10 [facility] Work Phone: Blood platelet mean volumeon 12-06-2021 Platelet mean volume (Bld) [Entitic vol] 9.2 fL 6.2-12.0 [facility] Work Phone: Determination of erythrocyte mean corpuscular volume (MCV)on 12-06-2021 MCV (RBC) [Entitic vol] 83.0 fL 80-94 [facility] Work Phone: Hematocrit Auto (Bld) [Volum e fraction]on 12-06-2021 Hematocrit (Bld) [Volume fraction] 42.1 % 40-54 [facility] Work Phone: INR in Blood by Coagulation assayon 12-06-2021 INR Coag (Bld) [Relative time] 3.3 {INR} [facility] Work Phone: Ketones Test strip Ql (U)on 12-06-2021 Ketones Ql (U) 5 mg/dl Negative [facility] Work Phone: Laboratory - Chemistry and C hemistry - challengeon 12-06-2021 CO2 [Moles/Vol] 24.0 mmol/L 21.0-32.0 [facility] Work Phone: Urea nitrogen/Creatinine [Mass ratio] 14.2 mg/mg 10-20 [facility] Work Phone: Laboratory - Coagulationon 0 12-06-2021 PT Coag (PPP) [Time] 32.9 s 11.7-14.9 [facility] Work Phone: Laboratory - Hematology and Cell countson 12-06-2021 Erythrocyte distribution width (RBC) [Entitic vol] 42.4 fL 35.1-43.9 [facility] Work Phone: Erythrocyte distribution width (RBC) [Ratio] 14.0 % 11.6-14.6 [facility] Work Phone: Immature granulocytes/100 WBC (Bld) 3.000 % 0.0-0.9 [facility] Work Phone: Comment on above: IG% - Immature Granu locytes (promyelocytes, myelocytes and metamyelocytes) > 1% indicates that a LEFT SHIFT is Present. MCH (RBC) [Entitic mass] 27.2 pg 27.0-32.0 [facility] Work Phone: Nucleated RBC/100 WBC (Bld) [Ratio] 0 % 0-5 [facility] Work Phone: MCHC Auto (RBC) [Mass/Vol]on 12-06-2021 MCHC (RBC) [Mass/Vol] 32.8 g/dL 32-36 [facility] Work Phone: Mucus LM Ql (Urine sed)on Mucus Ql (Urine sed) 0 SEEN /hpf [facility] Work Phone: Nitrite Test strip Ql (U)on 12-06-2021 Nitrite Ql (U) Negative Negative [facility] Work Phone: No Panel Informationon 12-06 Estimated Creatinine Clearance Calc 61.03 ml/min [facility] Work Phone: Estimated GFR (MDRD) Amer 76 mL/min >60 [facility] Work Phone: Comment on above: GFR Calc Estimated GFR (MDRD) Non-Af Amer 63 mL/min >60 [facility] Work Phone: Comment on above: Non- GFR Calc Troponin I High Sensitivity 5 pg/mL 3.0-78.0 [facility] Work Phone: Comment on above: Please Note: New Thania t Units and Gender Specific Reference Ranges. For more information see Policy Stat Procedure [place] High Sensitivity Troponin (TNIH) and attachments. SARS-CoV-2 & FLU Antigen (Rapid) SARS-CoV-2 (COVID 19) [facility] Work Phone: Platelets bldon 12-06-2021 Platelets (Bld) [#/Vol] 229 10*3/uL 150-450 [facility] Work Phone: Protein Test strip Ql (U)on 12-06-2021 Protein Ql (U) 30 mg/dl Negative [facility] Work Phone: Serum or plasma calcium antoine urement (mass/volume)on 12-06-2021 Calcium [Mass/Vol] 8.9 mg/dL 8.5-10.1 [facility] Work Phone: Serum or plasma creatinine m easurement (mass/volume)on 12-06-2021 Creatinine [Mass/Vol] 1.20 mg/dL 0.70-1.30 [facility] Work Phone: Comment on above: The validity of the calculated GFR & GFRAA in patients over 70 years has not been determined. Clinical correlation is essential. Serum or plasma urea nitroge n measurement (mass/volume)on 12-06-2021 Urea nitrogen [Mass/Vol] 17 mg/dL 7-18 [facility] Work Phone: Squamous epithelial cells de tection in urine sediment by light microscopyon 12-06-2021 Epithelial cells.squamous LM Ql (Urine sed) 0-5 SEEN /hpf 0-5 [facility] Work Phone: Thin prep Papanicolaou smear with manual screeningon 12-06-2021 Thin prep Papanicolaou smear with manual screening 9 5-15 [facility] Work Phone: Urine blood detectionon 11-13 RBC Ql (U) 10 /ul Negative [facility] Work Phone: RBC Ql (U) 0 SEEN /hpf 0-5 [facility] Work Phone: Urine clarityon 12-06-2021 Clarity (U) Clear Clear [facility] Work Phone: Urine color determinationon 12-06-2021 Color (U) Yellow Yellow [facility] Work Phone: Urine glucose detectionon Glucose Ql (U) 100 mg/dl Normal [facility] Work Phone: Urine leukocyte esterase det ection by dipstickon 12-06-2021 Leukocyte esterase Test strip Ql (U) 25 /ul Negative [facility] Work Phone: Urine pHon 12-06-2021 pH (U) 5.0 [pH] 5.0 - 8.0 [facility] Work Phone: Urine sediment bacteria coun t by microscopy (number/high power field)on 12-06-2021 Bacteria LM.HPF (Urine sed) [#/Area] 1 /[HPF] None Seen [facility] Work Phone: Urine specific gravity measu rementon 12-06-2021 Specific gravity (U) [Rel density] 1.025 1.002-1.03 0 [facility] Work Phone: Urobilinogen Auto test strip Ql (U)on 12-06-2021 Urobilinogen Ql (U) 1 mg/dl Normal [facility] Work Phone: GLUCOSE, BLOOD (POC)on 10-10 Glucose [Mass/Vol] 121 mg/dL Abnormal 74 - 99 mg/dL [facility] Glucose [Mass/Vol] 144 mg/dL Abnormal 74 - 99 mg/dL [facility] No Panel Informationon 10-10 [facility] CTA CHEST (GATED) W IVCONon 07-27-2021 CTA CHEST (GATED) W IVCON * * *Final Rep ort* * * DATE OF EXAM: Jul 27 2021 11:00AM [facility] 0125 - CTA CHEST [...] The arch vessel branching pattern is normal. 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 Cholelithiasis without findings of acute cholecystitis. M1 Armor Crewman: BLAKE Transcribe Date/Time: Jul 27 2021 11:21A Dictated by : BALBIR RAYGOZA MD This examination was interpreted and the report reviewed and electronically signed by: SADE (more content not included)... Normal [facility] - Microbiology an d Antimicrobial susceptibility Bacteria identified Cx Nom (Bld) No growth in 5 days. [facility] Work Phone: No Panel Information SARS-CoV-2 & FLU Antigen (Rapid) SARS-CoV-2 (COVID 19) [facility] Work Phone: Vital Signs Date Time Vital Sign Value Performing Clinician Jimi cheyenne 10-12-2024 13:12-0400 Body height 182.[address] Luis Caldera MD Work Phone: [facility] 10-12-2024 13:12-0400 Body mass index (BMI) [Ratio] 32.3 kg/m2 Dr. Luis Caldera MD Work Phone: [facility] 10-12-2024 13:12-0400 Body weight 107.[address] Luis Caldera MD Work Phone: [facility] 10-12-2024 13:12-0400 Diastolic blood pressure 57 mm[Hg] Dr. Luis Caldera MD Work Phone: [facility] 10-12-2024 13:12-0400 Heart rate 65 /min Dr. Luis Caldera MD Work Phone: [facility] 10-12-2024 13:12-0400 Respiratory rate 18 /min Dr. Luis Caldera MD Work Phone: [facility] 10-12-2024 13:12-0400 SaO2% (BldA) [Mass fraction] 99 % Dr. Luis Caldera MD Work Phone: 5(591)444-041231 [place] [address] 10-12-2024 13:12-0400 Systolic blood pressure 117 mm[Hg] Dr. Luis Caldera MD Work Phone: 9(670)009-844631 [place] [address] 10-07-2023 14:18-0400 Body height 182.[address] Luis Caldera Work Phone: 5(198)766-420931 [place] [address] 10-07-2023 14:18-0400 Body mass index (BMI) [Ratio] 29.8 kg/m2 Dr. Luis Caldera Work Phone: 7(873)526-073831 [place] [address] 10-07-2023 14:18-0400 Body weight 99.[address] Luis Caldera Work Phone: 4(362)918-830031 [place] [address] 10-07-2023 14:18-0400 Diastolic blood pressure 66 mm[Hg] Dr. Luis Caldera Work Phone: 9(367)741-266831 [place] [address] 10-07-2023 14:18-0400 Heart rate 67 /min Dr. Luis Caldera Work Phone: 2(487)530-472931 [place] [address] 10-07-2023 14:18-0400 Respiratory rate 16 /min Dr. Luis Caldera Work Phone: 1(928)629-800931 [place] [address] 10-07-2023 14:18-0400 Systolic blood pressure 112 mm[Hg] Dr. Luis Caldera Work Phone: 5(959)182-352131 [place] [address] 06-03-2023 12:50-0500 Body temperature 97.2 [degF] Dr. Luis Caldera Work Phone: 8(782)259-721831 [place] [address] 06-03-2023 12:50-0500 Diastolic blood pressure 90 mm[Hg] Dr. Luis Caldera Work Phone: 5(818)297-940031 [place] [address] 06-03-2023 12:50-0500 Heart rate 85 /min Dr. Luis Caldera Work Phone: 8(087)621-646731 [place] [address] 06-03-2023 12:50-0500 Respiratory rate 16 /min Dr. Luis Caldera Work Phone: [facility] 06-03-2023 12:50-0500 SaO2% (BldA) [Mass fraction] 97 % Dr. Luis Caldera Work Phone: [facility] 06-03-2023 12:50-0500 Systolic blood pressure 134 mm[Hg] Dr. Lusi Caldera Work Phone: [facility] 06-03-2023 11:45-0500 Body height 182.[address] Luis Caldera Work Phone: [facility] 06-03-2023 11:45-0500 Body mass index (BMI) [Ratio] 30.5 kg/m2 Dr. Luis Caldera Work Phone: [facility] 06-03-2023 11:45-0500 Body weight 102.[address] Luis Caldera Work Phone: [facility] 03-27-2023 13:51-0400 Body height 185.[address] Maggy Roberts Work Phone: [facility] 03-27-2023 13:51-0400 Body mass index (BMI) [Ratio] 34.7 kg/m2 Dr. Maggy Roberts Work Phone: [facility] 03-27-2023 13:51-0400 Body weight 119.[address] Maggy Roberts Work Phone: [facility] 03-27-2023 13:51-0400 Diastolic blood pressure 78 mm[Hg] Dr. Maggy Roberts Work Phone: [facility] 03-27-2023 13:51-0400 Heart rate 97 /min Dr. Maggy Roberts Work Phone: [facility] 03-27-2023 13:51-0400 Respiratory rate 18 /min Dr. Maggy Roberts Work Phone: [facility] 03-27-2023 13:51-0400 SaO2% (BldA) [Mass fraction] 98 % Dr. Maggy Roberts Work Phone: 0(858)928-962975 [place] [address] 03-27-2023 13:51-0400 Systolic blood pressure 118 mm[Hg] Dr. Maggy Roberts Work Phone: 5(355)990-079132 [address] 02-13-2023 15:02-0400 Body temperature 97 [degF] Dr. Maggy Roberts Work Phone: 8(472)815-893332 [address] 02-13-2023 15:02-0400 Diastolic blood pressure 70 mm[Hg] Dr. Maggy Roberts Work Phone: 8(116)521-188732 [address] 02-13-2023 15:02-0400 Heart rate 82 /min Dr. Maggy Roberts Work Phone: 6(380)326-110110 [place] [address] 02-13-2023 15:02-0400 Respiratory rate 16 /min Dr. Maggy Roberts Work Phone: 5(531)140-787210 [place] [address] 02-13-2023 15:02-0400 SaO2% (BldA) [Mass fraction] 100 % Dr. Maggy Roberts Work Phone: 4(972)129-360275 [place] [address] 02-13-2023 15:02-0400 Systolic blood pressure 134 mm[Hg] Dr. Maggy Roberts Work Phone: 2(256)808-696310 [place] [address] 02-12-2023 13:33-0400 Body height 185.[address] Maggy Roberts Work Phone: 7(816)436-909810 [place] [address] 02-12-2023 13:33-0400 Body weight 102.[address] Maggy Roberts Work Phone: 5(152)090-807775 [place] [address] 02-11-2023 20:45-0400 Body mass index (BMI) [Ratio] 30 kg/m2 Dr. Maggy Roberts Work Phone: 7(451)309-036675 [place] [address] 02-11-2023 18:53-0400 Body temperature 99.1 [degF] Dr. Maggy Roberts Work Phone: 3(020)350-715732 [address] 02-11-2023 18:53-0400 Diastolic blood pressure 71 mm[Hg] Dr. Maggy Roberts Work Phone: 3(167)271-645910 [place] [address] 02-11-2023 18:53-0400 Heart rate 88 /min Dr. Maggy Roberts Work Phone: 8(746)095-516710 [place] [address] 02-11-2023 18:53-0400 Respiratory rate 18 /min Dr. Maggy Roberts Work Phone: 8(036)014-814910 [place] [address] 02-11-2023 18:53-0400 SaO2% (BldA) [Mass fraction] 93 % Dr. Maggy Roberts Work Phone: 9(767)786-730110 [place] [address] 02-11-2023 18:53-0400 Systolic blood pressure 129 mm[Hg] Dr. Maggy Roberts Work Phone: 3(684)342-943310 [place] [address] 02-11-2023 16:21-0400 Body height 185.[address] Maggy Roberts Work Phone: 0(065)914-961610 [place] [address] 02-11-2023 00:58-0400 Body temperature 98.4 [degF] Dr. Maggy Roberts Work Phone: 5(128)894-722210 [place] [address] 02-11-2023 00:58-0400 Diastolic blood pressure 62 mm[Hg] Dr. Maggy Roberts Work Phone: 1(079)845-023110 [place] [address] 02-11-2023 00:58-0400 Heart rate 74 /min Dr. Maggy Roberts Work Phone: 7(540)057-244310 [place] [address] 02-11-2023 00:58-0400 Respiratory rate 26 /min Dr. Maggy Roberts Work Phone: 5(532)171-217110 [place] [address] 02-11-2023 00:58-0400 SaO2% (BldA) [Mass fraction] 95 % Dr. Maggy Roberts Work Phone: 2(761)764-103910 [place] [address] 02-11-2023 00:58-0400 Systolic blood pressure 124 mm[Hg] Dr. Maggy Roberts Work Phone: 7(602)760-063710 [place] [address] 02-10-2023 21:23-0400 Body height 185.[address] Maggy Roberts Work Phone: 4(722)519-198410 [place] [address] 02-10-2023 21:23-0400 Body mass index (BMI) [Ratio] 30.9 kg/m2 Dr. Maggy Roberts Work Phone: 2(531)755-758910 [place] [address] 02-10-2023 21:23-0400 Body weight 106.[address] Maggy Roberts Work Phone: 8(572)936-234510 [place] [address] 02-05-2023 15:10-0400 Body temperature 97.4 [degF] Dr. Maggy Roberts Work Phone: 2(996)749-921110 [place] [address] 02-05-2023 15:10-0400 Diastolic blood pressure 77 mm[Hg] Dr. Maggy Roberts Work Phone: 2(489)920-895810 [place] [address] 02-05-2023 15:10-0400 Heart rate 85 /min Dr. Maggy Roberts Work Phone: 7(446)636-086710 [place] [address] 02-05-2023 15:10-0400 Respiratory rate 18 /min Dr. Maggy Roberts Work Phone: 5(245)893-378310 [place] [address] 02-05-2023 15:10-0400 SaO2% (BldA) [Mass fraction] 94 % Dr. Maggy Roberts Work Phone: 2(395)623-011910 [place] [address] 02-05-2023 15:10-0400 Systolic blood pressure 131 mm[Hg] Dr. Maggy Roberts Work Phone: 4(541)517-028610 [place] [address] 02-05-2023 05:36-0400 Body mass index (BMI) [Ratio] 30.6 kg/m2 Dr. Maggy Roberts Work Phone: 1(636)127-438810 [place] [address] 02-05-2023 05:36-0400 Body weight 105.[address] Mgagy Roberts Work Phone: 1(505)904-419910 [place] [address] 02-01-2023 00:17-0400 Inhaled oxygen flow rate 2 L/min Dr. Maggy Roberts Work Phone: [facility] 01-27-2023 21:04-0400 Body temperature 98.1 [degF] Dr. Maggy Roberts Work Phone: 9(608)791-308075 [place] [address] 01-27-2023 21:04-0400 Diastolic blood pressure 48 mm[Hg] Dr. Maggy Roberts Work Phone: 9(551)472-651475 [place] [address] 01-27-2023 21:04-0400 Heart rate 79 /min Dr. Maggy Roberts Work Phone: 1(607)054-286875 [place] [address] 01-27-2023 21:04-0400 Respiratory rate 16 /min Dr. Maggy Roberts Work Phone: 3(463)974-258832 [address] 01-27-2023 21:04-0400 SaO2% (BldA) [Mass fraction] 94 % Dr. Maggy Roberts Work Phone: 8(206)963-211075 [place] [address] 01-27-2023 21:04-0400 Systolic blood pressure 111 mm[Hg] Dr. Maggy Roberts Work Phone: 5(010)292-132175 [place] [address] 01-27-2023 17:58-0400 Body height 185.[address] Maggy Roberts Work Phone: 7(846)486-054110 [place] [address] 01-27-2023 17:58-0400 Body mass index (BMI) [Ratio] 30.5 kg/m2 Dr. Maggy Roberts Work Phone: 8(243)153-490775 [place] [address] 01-27-2023 17:58-0400 Body weight [address] Maggy Roberts Work Phone: [facility] 01-26-2023 14:13-0400 Body temperature 98.6 [degF] Dr. Maggy Roberts Work Phone: 4(556)933-465675 [place] [address] 01-26-2023 14:13-0400 Diastolic blood pressure 46 mm[Hg] Dr. Maggy Roberts Work Phone: 5(780)733-486675 [place] [address] 01-26-2023 14:13-0400 Heart rate 60 /min Dr. Maggy Roberts Work Phone: [facility] 01-26-2023 14:13-0400 Respiratory rate 18 /min Dr. Maggy Roberts Work Phone: 2(295)128-308775 [place] [address] 01-26-2023 14:13-0400 SaO2% (BldA) [Mass fraction] 97 % Dr. Maggy Roberts Work Phone: 4(914)202-358975 [place] [address] 01-26-2023 14:13-0400 Systolic blood pressure 134 mm[Hg] Dr. Maggy Roberts Work Phone: 6(647)260-798910 [place] [address] 01-25-2023 05:27-0400 Body mass index (BMI) [Ratio] 28.2 kg/m2 Dr. Maggy Roberts Work Phone: 3(093)279-425575 [place] [address] 01-25-2023 05:27-0400 Body weight 96.[address] Maggy Roberts Work Phone: 8(296)510-616610 [place] [address] 01-24-2023 16:00-0400 Inhaled oxygen flow rate 93 L/min Dr. Maggy Roberts Work Phone: 4(782)412-965110 [place] [address] 01-23-2023 14:42-0400 Body height 185.[address] Maggy Roberts Work Phone: 6(468)134-918375 [place] [address] 01-21-2023 11:32-0400 Body temperature 97.8 [degF] Dr. Maggy Roberts Work Phone: 4(313)411-618175 [place] [address] 01-21-2023 11:32-0400 Diastolic blood pressure 55 mm[Hg] Dr. Maggy Roberts Work Phone: 6(215)760-030775 [place] [address] 01-21-2023 11:32-0400 Heart rate 83 /min Dr. Maggy Roberts Work Phone: 5(490)866-505975 [place] [address] 01-21-2023 11:32-0400 Respiratory rate 23 /min Dr. Maggy Roberts Work Phone: 9(818)340-935675 [place] [address] 01-21-2023 11:32-0400 SaO2% (BldA) [Mass fraction] 93 % Dr. Maggy Roberts Work Phone: 7(013)100-543275 [place] [address] 01-21-2023 11:32-0400 Systolic blood pressure 133 mm[Hg] Dr. Maggy Roberts Work Phone: 7(691)044-858610 [place] [address] 01-21-2023 08:21-0400 Body height 185.[address] Maggy Roberts Work Phone: 6(618)507-557410 [place] [address] 01-21-2023 08:21-0400 Body mass index (BMI) [Ratio] 28.9 kg/m2 Dr. Maggy Roberts Work Phone: 1(134)684-797110 [place] [address] 01-21-2023 08:21-0400 Body weight 99.[address] Maggy Roberts Work Phone: 2(702)863-685610 [place] [address] 01-08-2023 11:58-0400 Body temperature 98.3 [degF] Dr. Maggy Roberts Work Phone: 4(515)892-280210 [place] [address] 01-08-2023 11:58-0400 Diastolic blood pressure 70 mm[Hg] Dr. Maggy Roberts Work Phone: 2(363)063-641110 [place] [address] 01-08-2023 11:58-0400 Heart rate 60 /min Dr. Maggy Roberts Work Phone: 9(509)445-079210 [place] [address] 01-08-2023 11:58-0400 Respiratory rate 14 /min Dr. Maggy Roberts Work Phone: 5(027)614-940710 [place] [address] 01-08-2023 11:58-0400 SaO2% (BldA) [Mass fraction] 96 % Dr. Maggy Roberts Work Phone: 7(461)084-121310 [place] [address] 01-08-2023 11:58-0400 Systolic blood pressure 108 mm[Hg] Dr. Maggy Roberts Work Phone: 3(817)405-024810 [place] [address] 01-08-2023 06:00-0400 Body mass index (BMI) [Ratio] 38.4 kg/m2 Dr. Maggy Roberts Work Phone: 9(319)106-193410 [place] [address] 01-08-2023 06:00-0400 Body weight [address] Maggy Roberts Work Phone: [facility] 01-04-2023 17:25-0400 Diastolic blood pressure 63 mm[Hg] [facility] 01-04-2023 17:25-0400 Heart rate 63 /min [facility] 01-04-2023 17:25-0400 Respiratory rate 12 /min [facility] 01-04-2023 17:25-0400 SaO2% (BldA) [Mass fraction] 98 % [facility] 01-04-2023 17:25-0400 Systolic blood pressure 138 mm[Hg] [facility] 01-04-2023 16:19-0400 Body temperature 96.9 [degF] [facility] 01-04-2023 11:15-0400 Body mass index (BMI) [Ratio] 30.4 kg/m2 [facility] 01-04-2023 11:15-0400 Body weight 104.7 kg [facility] 01-04-2023 10:59-0400 Body height 185.42 cm [facility] 09-07-2022 11:01-0500 Body height 185.4 cm Jojo Kaur MD Work Phone: [facility] 09-07-2022 11:01-0500 Body weight 113.4 kg Jojo Kaur MD Work Phone: [facility] 09-07-2022 11:01-0500 Diastolic blood pressure 57 mm[Hg] Jojo Kaur MD Work Phone: [facility] 09-07-2022 11:01-0500 Heart rate 64 /min Jojo Kaur MD Work Phone: [facility] 09-07-2022 11:01-0500 Respiratory rate 16 /min Jojo Kaur MD Work Phone: [facility] 09-07-2022 11:01-0500 SaO2% (BldA) [Mass fraction] 99 % Jojo Kaur MD Work Phone: [facility] 09-07-2022 11:01-0500 Systolic blood pressure 124 mm[Hg] Jojo Kaur MD Work Phone: [facility] 08-09-2022 16:35-0500 Body weight 113.4 kg Abdulaziz Caldera MD Work Phone: [facility] 08-09-2022 16:35-0500 Diastolic blood pressure 62 mm[Hg] Abdulaziz Caldera MD Work Phone: [facility] 08-09-2022 16:35-0500 Heart rate 64 /min Abdulaziz Caldera MD Work Phone: [facility] 08-09-2022 16:35-0500 Respiratory rate 16 /min Abdulaziz Caldera MD Work Phone: [facility] 08-09-2022 16:35-0500 SaO2% (BldA) [Mass fraction] 96 % Abdulaziz Caldera MD Work Phone: [facility] 08-09-2022 16:35-0500 Systolic blood pressure 112 mm[Hg] Abdulaziz Caldera MD Work Phone: [facility] 07-11-2022 16:22-0500 Body temperature 97.9 [degF] Dr. Luis aCldera Work Phone: [facility] Work Phone: 07-11-2022 16:22-0500 Diastolic blood pressure 65 mm[Hg] Dr. Luis Caldera Work Phone: [facility] Work Phone: 07-11-2022 16:22-0500 Heart rate 75 /min Dr. Luis Caldera Work Phone: [facility] Work Phone: 07-11-2022 16:22-0500 Respiratory rate 17 /min Dr. Luis Caldera Work Phone: [facility] Work Phone: 07-11-2022 16:22-0500 SaO2% (BldA) [Mass fraction] 96 % Dr. Luis Caldera Work Phone: [facility] Work Phone: 07-11-2022 16:22-0500 Systolic blood pressure 114 mm[Hg] Dr. Luis Caldera Work Phone: [facility] Work Phone: 07-11-2022 03:04-0500 Body weight 114.[address] Luis Caldera Work Phone: [facility] Work Phone: 07-10-2022 14:29-0500 Body height 185.[address] Luis Caldera Work Phone: [facility] Work Phone: 07-10-2022 03:04-0500 Body mass index (BMI) [Ratio] 33.6 kg/m2 Dr. Luis Caldera Work Phone: [facility] Work Phone: 07-09-2022 21:17-0500 Inhaled oxygen flow rate 97 L/min Dr. Luis Caldera Work Phone: [facility] Work Phone: 04-17-2022 11:23-0400 Body height 185.4 cm Jojo Kaur MD Work Phone: [facility] 04-17-2022 11:23-0400 Body weight 114.31 kg Jojo Kaur MD Work Phone: [facility] 04-17-2022 11:23-0400 Diastolic blood pressure 71 mm[Hg] Jojo Kaur MD Work Phone: [facility] 04-17-2022 11:23-0400 Heart rate 72 /min Jojo Kaur MD Work Phone: [facility] 04-17-2022 11:23-0400 Respiratory rate 18 /min Jojo Kaur MD Work Phone: [facility] 04-17-2022 11:23-0400 SaO2% (BldA) [Mass fraction] 98 % Jojo Kaur MD Work Phone: [facility] 04-17-2022 11:23-0400 Systolic blood pressure 116 mm[Hg] Jojo Kaur MD Work Phone: [facility] 04-16-2022 13:09-0400 Body height 185.4 cm Abdulaziz Caldera MD Work Phone: [facility] 04-16-2022 13:09-0400 Body weight 114.31 kg Abdulaziz Caldera MD Work Phone: [facility] 04-16-2022 13:09-0400 Diastolic blood pressure 72 mm[Hg] Abdulaziz Caldera MD Work Phone: [facility] 04-16-2022 13:09-0400 Heart rate 70 /min Abdulaziz Caldera MD Work Phone: [facility] 04-16-2022 13:09-0400 Respiratory rate 16 /min Abdulaziz Caldera MD Work Phone: [facility] 04-16-2022 13:09-0400 SaO2% (BldA) [Mass fraction] 98 % Abdulaziz Caldera MD Work Phone: [facility] 04-16-2022 13:09-0400 Systolic blood pressure 132 mm[Hg] Abdulaziz Caldera MD Work Phone: [facility] 04-06-2022 09:36-0400 Body weight 114.31 kg Roselia Podlogar POWER BUILDER DEVELOPER.SLEEP TECHNOLOGIST Work Phone: [facility] 04-06-2022 09:36-0400 Diastolic blood pressure 62 mm[Hg] Roselia Podlogar POWER BUILDER DEVELOPER.SLEEP TECHNOLOGIST Work Phone: [facility] 04-06-2022 09:36-0400 Heart rate 62 /min Roselia Podlogar POWER BUILDER DEVELOPER.SLEEP TECHNOLOGIST Work Phone: [facility] 04-06-2022 09:36-0400 Respiratory rate 16 /min Roselia Podlogar POWER BUILDER DEVELOPER.SLEEP TECHNOLOGIST Work Phone: [facility] 04-06-2022 09:36-0400 SaO2% (BldA) [Mass fraction] 97 % Roselia Podlogar POWER BUILDER DEVELOPER.SLEEP TECHNOLOGIST Work Phone: [facility] 04-06-2022 09:36-0400 Systolic blood pressure 112 mm[Hg] Roselia Podlogar POWER BUILDER DEVELOPER.SLEEP TECHNOLOGIST Work Phone: [facility] 03-07-2022 11:12-0400 Body weight 114.76 kg Abdulaziz Caldera MD Work Phone: [facility] 03-07-2022 11:12-0400 Diastolic blood pressure 70 mm[Hg] Abdulaziz Caldera MD Work Phone: [facility] 03-07-2022 11:12-0400 Heart rate 64 /min Abdulaziz Caldera MD Work Phone: [facility] 03-07-2022 11:12-0400 Respiratory rate 16 /min Abdulaziz Caldera MD Work Phone: [facility] 03-07-2022 11:12-0400 Systolic blood pressure 118 mm[Hg] Abdulaziz Caldera MD Work Phone: [facility] 03-05-2022 12:00-0400 Diastolic blood pressure 60 mm[Hg] Rosa Elena Lemon PT [facility] 03-05-2022 12:00-0400 Systolic blood pressure 112 mm[Hg] Rosa Elena Lemsameera PT [facility] 03-02-2022 19:48-0400 Diastolic blood pressure 79 mm[Hg] Dr. Luis Caldera Work Phone: [facility] Work Phone: 03-02-2022 19:48-0400 Heart rate 77 /min Dr. Luis Caldera Work Phone: [facility] Work Phone: 03-02-2022 19:48-0400 SaO2% (BldA) [Mass fraction] 97 % Dr. Luis Cadlera Work Phone: [facility] Work Phone: 03-02-2022 19:48-0400 Systolic blood pressure 131 mm[Hg] Dr. Luis Caldera Work Phone: [facility] Work Phone: 03-02-2022 18:12-0400 Respiratory rate 17 /min Dr. Luis Caldera Work Phone: [facility] Work Phone: 03-02-2022 14:22-0400 Body height 185.[address] Luis Caldera Work Phone: [facility] Work Phone: 03-02-2022 14:22-0400 Body mass index (BMI) [Ratio] 32.3 kg/m2 Dr. Luis Caldera Work Phone: [facility] Work Phone: 03-02-2022 14:22-0400 Body temperature 98.9 [degF] Dr. Luis Caldera Work Phone: [facility] Work Phone: 03-02-2022 14:22-0400 Body weight 111.[address] Luis Caldera Work Phone: [facility] Work Phone: 01-12-2022 08:00-0400 Diastolic blood pressure 78 mm[Hg] Rosa Elena Lemon PT [facility] 01-12-2022 08:00-0400 Systolic blood pressure 130 mm[Hg] Rosa Elena Lemon PT [facility] 01-05-2022 09:56-0400 Body height 185.4 cm Jojo Kaur MD Work Phone: [facility] 01-05-2022 09:56-0400 Body weight 111.58 kg Jojo Kaur MD Work Phone: [facility] 01-05-2022 09:56-0400 Diastolic blood pressure 62 mm[Hg] Jojo Kaur MD Work Phone: [facility] 01-05-2022 09:56-0400 Heart rate 58 /min Jojo Kaur MD Work Phone: [facility] 01-05-2022 09:56-0400 Respiratory rate 16 /min Jojo Kaur MD Work Phone: [facility] 01-05-2022 09:56-0400 SaO2% (BldA) [Mass fraction] 97 % Jojo Kaur MD Work Phone: [facility] 01-05-2022 09:56-0400 Systolic blood pressure 117 mm[Hg] Jojo Kaur MD Work Phone: [facility] 01-01-2022 10:12-0400 Body temperature 97.39 [degF] Abdulaziz Caldera MD Work Phone: [facility] 01-01-2022 10:12-0400 Body weight 111.77 kg Abdulaziz Caldera MD Work Phone: [facility] 01-01-2022 10:12-0400 Diastolic blood pressure 64 mm[Hg] Abdulaziz Caldera MD Work Phone: [facility] 01-01-2022 10:12-0400 Heart rate 47 /min Abdulaziz Caldera MD Work Phone: [facility] 01-01-2022 10:12-0400 Respiratory rate 18 /min Abdulaziz Caldera MD Work Phone: [facility] 01-01-2022 10:12-0400 SaO2% (BldA) [Mass fraction] 98 % Abdulaziz Caldera MD Work Phone: [facility] 01-01-2022 10:12-0400 Systolic blood pressure 112 mm[Hg] Abdulaziz Caldera MD Work Phone: [facility] 01-01-2022 08:55-0400 Body weight 112.49 kg Justina Monique APRN.CNP Work Phone: [facility] 01-01-2022 08:55-0400 Diastolic blood pressure 74 mm[Hg] Justina Leonie POWER BUILDER DEVELOPER.SLEEP TECHNOLOGIST Work Phone: [facility] 01-01-2022 08:55-0400 Heart rate 60 /min Justina Leonie POWER BUILDER DEVELOPER.SLEEP TECHNOLOGIST Work Phone: [facility] 01-01-2022 08:55-0400 Respiratory rate 18 /min Justina Leonie POWER BUILDER DEVELOPER.SLEEP TECHNOLOGIST Work Phone: [facility] 01-01-2022 08:55-0400 Systolic blood pressure 147 mm[Hg] Justina Vizcarraely POWER BUILDER DEVELOPER.SLEEP TECHNOLOGIST Work Phone: [facility] 12-29-2021 08:54-0400 Heart rate 69 /min Dr. Luis Caldera Work Phone: [facility] Work Phone: 12-29-2021 08:50-0400 Body temperature 97.7 [degF] Dr. Luis Caldera Work Phone: [facility] Work Phone: 12-29-2021 08:50-0400 Diastolic blood pressure 68 mm[Hg] Dr. Luis Caldera Work Phone: [facility] Work Phone: 12-29-2021 08:50-0400 Respiratory rate 18 /min Dr. Luis Caldera Work Phone: [facility] Work Phone: 12-29-2021 08:50-0400 SaO2% (BldA) [Mass fraction] 96 % Dr. Luis Caldera Work Phone: [facility] Work Phone: 12-29-2021 08:50-0400 Systolic blood pressure 139 mm[Hg] Dr. Luis Caldera Work Phone: [facility] Work Phone: 12-27-2021 22:36-0400 Body height 185.[address] Luis Caldera Work Phone: [facility] Work Phone: 12-27-2021 22:36-0400 Body mass index (BMI) [Ratio] 32.8 kg/m2 Dr. Luis Caldera Work Phone: [facility] Work Phone: 12-27-2021 22:36-0400 Body weight 112.[address] Luis Caldera Work Phone: [facility] Work Phone: 12-27-2021 21:22-0400 Diastolic blood pressure 71 mm[Hg] DR MELANIA WORKMAN MD [facility] 12-27-2021 21:22-0400 Heart rate 73 /min DR MELANIA WORKMAN MD [facility] 12-27-2021 21:22-0400 Respiratory rate 24 /min DR MELANIA WORKMAN MD [facility] 12-27-2021 21:22-0400 Systolic blood pressure 121 mm[Hg] DR MELANIA WORKMAN MD [facility] 12-27-2021 20:06-0400 Diastolic blood pressure 59 mm[Hg] DR MELANIA WORKMAN MD [facility] 12-27-2021 20:06-0400 Heart rate 80 /min DR MELANIA WORKMAN MD [facility] 12-27-2021 20:06-0400 Respiratory rate 26 /min DR MELANIA WORKMAN MD [facility] 12-27-2021 20:06-0400 Systolic blood pressure 112 mm[Hg] DR MELANIA WORKMAN MD [facility] 12-27-2021 19:19-0400 Body temperature 98.6 [degF] DR MELANIA WORKMAN MD [facility] 12-27-2021 19:19-0400 Diastolic blood pressure 76 mm[Hg] DR MELANIA WORKMAN MD [facility] 12-27-2021 19:19-0400 Heart rate 82 /min DR MELANIA WORKMAN MD [facility] 12-27-2021 19:19-0400 Respiratory rate 26 /min DR MELANIA WORKMAN MD [facility] 12-27-2021 19:19-0400 Systolic blood pressure 138 mm[Hg] DR MELANIA WORKMAN MD [facility] 12-27-2021 17:36-0400 Body temperature 102.56 [degF] DR MELANIA WORKMAN MD [facility] 12-27-2021 17:36-0400 Body weight [address] MELANIA WORKMAN MD [facility] 12-27-2021 17:36-0400 Heart rate 104 /min DR MELANIA WORKMAN MD [facility] 12-14-2021 15:10-0400 Body temperature 98.2 [degF] Abdulaziz Caldera MD Work Phone: [facility] 12-14-2021 15:10-0400 Body weight 110.77 kg Abdulaziz Caldera MD Work Phone: [facility] 12-14-2021 15:10-0400 Diastolic blood pressure 70 mm[Hg] Abdulaziz Caldera MD Work Phone: [facility] 12-14-2021 15:10-0400 Heart rate 54 /min Abdulaziz Caldera MD Work Phone: [facility] 12-14-2021 15:10-0400 Respiratory rate 16 /min Abdulaziz Caldera MD Work Phone: [facility] 12-14-2021 15:10-0400 SaO2% (BldA) [Mass fraction] 96 % Abdulaziz Caldera MD Work Phone: [facility] 12-14-2021 15:10-0400 Systolic blood pressure 130 mm[Hg] Abdulaziz Caldera MD Work Phone: [facility] 12-08-2021 16:23-0400 Diastolic blood pressure 64 mm[Hg] Abdulaziz Caldera MD Work Phone: [facility] 12-08-2021 16:23-0400 Heart rate 85 /min Abdulaziz Caldera MD Work Phone: [facility] 12-08-2021 16:23-0400 Systolic blood pressure 110 mm[Hg] Abdulaziz Caldera MD Work Phone: [facility] 12-07-2021 00:58-0400 SaO2% (BldA) [Mass fraction] 97 % [facility] Work Phone: 12-06-2021 22:59-0400 Body height 185.42 cm [facility] Work Phone: 12-06-2021 22:59-0400 Body mass index (BMI) [Ratio] 33.6 kg/m2 [facility] Work Phone: 12-06-2021 22:59-0400 Body temperature 97.7 [degF] [facility] Work Phone: 12-06-2021 22:59-0400 Body weight 115.66 kg [facility] Work Phone: 12-06-2021 22:59-0400 Diastolic blood pressure 78 mm[Hg] [facility] Work Phone: 12-06-2021 22:59-0400 Heart rate 90 /min [facility] Work Phone: 12-06-2021 22:59-0400 Respiratory rate 16 /min [facility] Work Phone: 12-06-2021 22:59-0400 Systolic blood pressure 149 mm[Hg] [facility] Work Phone: 10-23-2021 13:05-0400 Body temperature 97.3 [degF] Marcella Wamego PA-C Work Phone: [facility] 10-23-2021 13:05-0400 Body weight 114.58 kg Marcella Xavier PA-C Work Phone: [facility] 10-23-2021 13:05-0400 Diastolic blood pressure 56 mm[Hg] Marcella Wamego PA-C Work Phone: [facility] 10-23-2021 13:05-0400 Heart rate 85 /min Marcella Xavier PA-C Work Phone: [facility] 10-23-2021 13:05-0400 SaO2% (BldA) [Mass fraction] 98 % Marcella Xavier PA-C Work Phone: [facility] 10-23-2021 13:05-0400 Systolic blood pressure 132 mm[Hg] Marcella Xavier PA-C Work Phone: [facility] 10-10-2021 10:07-0400 Diastolic blood pressure 68 mm[Hg] Richard Jones MD Work Phone: [facility] 10-10-2021 10:07-0400 Heart rate 69 /min Richard Jones MD Work Phone: [facility] 10-10-2021 10:07-0400 Respiratory rate 16 /min Richard Jones MD Work Phone: [facility] 10-10-2021 10:07-0400 SaO2% (BldA) [Mass fraction] 98 % Richard Jones MD Work Phone: [facility] 10-10-2021 10:07-0400 Systolic blood pressure 150 mm[Hg] Richard Jones MD Work Phone: [facility] 10-10-2021 08:01-0400 Body temperature 97 [degF] Richard Jones MD Work Phone: [facility] Encounters Encounter Date Encounter Type Care Provider Facility Start: 12-16-2024 ambulatory Walter Stewart ty:[facility] Start: 11-24-2024 ambulatory Walter Stewart ty:[facility] Start: 10-12-2024 End: 10-12-[address] Olga Lidia Rasheed MD -[facility] Work Phone: Start: 10-12-2024 End: 10-12-2024 ambulatory Olga Lidia Rasheed Facility[place] Start: 10-05-2024 End: 10-05-[address] Luis Caldera MD Work Phone: [facility] Work Phone: Start: 10-05-2024 End: 10-05-2024 Departed Referred [facility] -[facility] Start: 10-05-2024 [facility] Start: 10-05-2024 End: 10-05-2024 ambulatory Walter MAYORGA Facility:[facility] Start: 09-29-2024 End: 09-29-[address] Luis Caldera MD Work Phone: [facility] Work Phone: Start: 09-29-2024 End: 09-29-2024 [facility] Start: 09-29-2024 End: 09-29-2024 ambulatory Walter MAYORGA Facility:[facility] Start: 08-04-2024 End: 08-04-2024 Departed Referred Walter Becker MD -[facility] Start: 08-04-2024 End: 08-04-2024 ambulatory Walter MAYORGA Facility:[facility] Start: 07-27-2024 End: 07-27-2024 Departed Referred [facility] Start: 07-27-2024 End: 07-27-2024 ambulatory Walter MAYORGA Facility:[facility] Start: 07-07-2024 End: 07-07-2024 Departed Referred Walter Becker MD -[facility] [place] Start: 07-07-2024 End: 07-07-2024 ambulatory Walter MAYORGA Facility:[facility] Start: 07-01-2024 ambulatory Walter MAYORGA Facili ty:[facility] Start: 07-01-2024 Registered Referred Walter Becker MD -[facility] [place] [facility] Start: 06-01-2024 End: 06-01-2024 ambulatory Luis Verenice Facility:[facility] Start: 04-14-2024 End: 04-14-2024 ambulatory Walter MAYORGA Facility:[facility] Start: 04-10-2024 End: 04-10-2024 ambulatory Walter MAYORGA Facility:[facility] Start: 04-09-2024 End: 04-09-2024 ambulatory Walter MAYORGA Facility:[facility] Start: 04-07-2024 End: 04-08-2024 ambulatory Walter MAYORGA Facility:[facility] Start: 03-02-2024 ambulatory Walter MAYORGA Facili ty:[facility] Start: 02-24-2024 ambulatory Luis Verenice Faci lity:[facility] Start: 02-19-2024 End: 02-19-2024 ambulatory Walter Stoneo OLS Facility:[facility] Start: 02-17-2024 End: 02-17-2024 ambulatory Luis Caldera Facility:[facility] Start: 02-12-2024 End: 02-12-2024 ambulatory Luis Caldera Facility:[facility] Start: 02-11-2024 End: 02-11-2024 ambulatory Walter Stoneo OLS Facility:[facility] Start: 02-10-2024 End: 02-10-2024 ambulatory Walter Stoneo OLS Facility:[facility] Start: 02-03-2024 End: 02-03-2024 ambulatory Walter Stoneo OLS Facility:[facility] Start: 01-27-2024 End: 01-27-2024 ambulatory Walter Depfabienneo OLS Facility:[facility] Start: 01-20-2024 ambulatory Walter Depfabienneo OLS Facili ty:[facility] Start: 01-15-2024 ambulatory Walter Depfabienneo OLS Facili ty:[facility] Start: 01-14-2024 ambulatory Walter Depfabienneo OLS Facili ty:[facility] Start: 01-13-2024 ambulatory Luis Caldera Faci lity:[facility] Start: 01-06-2024 ambulatory Luis Verenice Faci lity:[facility] Start: 12-30-2023 ambulatory Walter Depfabienneo OLS Facili ty:[facility] Start: 12-27-2023 ambulatory Walter Stoneo OLS Facili ty:[facility] Start: 12-20-2023 ambulatory Walter Stoneo OLS Facili ty:[facility] Start: 12-19-2023 ambulatory Walter Stoneo OLS Facili ty:[facility] Start: 10-25-[address] Adam Caldera Work Phone: [facility] Start: 10-16-2023 End: 10-16-[address] Luis Caldera Work Phone: [facility] Work Phone: Start: 10-16-2023 End: 10-16-[address] Luis Caldera Work Phone: [facility] Start: 10-16-[address] Adam Caldera Work Phone: [facility] Start: 10-08-2023 End: 10-08-[address] Luis Caldera Work Phone: [facility] Work Phone: Start: 10-08-2023 End: 10-08-[address] Luis Caldera Work Phone: [facility] Start: 10-08-[address] Adam Caldera Work Phone: [facility] Start: 10-07-2023 End: 10-07-[address] Luis Caldera Work Phone: [facility] Work Phone: Start: 10-04-2023 End: 10-04-[address] Luis Caldera Work Phone: [facility] Work Phone: Start: 10-04-2023 End: 10-04-[address] Luis Caldera Work Phone: [facility] Start: 10-01-2023 End: 10-01-[address] Luis Caldera Work Phone: [facility] Work Phone: Start: 10-01-2023 End: 10-01-[address] Luis Caldera Work Phone: [facility] Start: 10-01-2023 Registered Referred [facility] Start: 09-25-2023 End: 09-25-2023 ambulatory [facility] Work Phone: Start: 09-25-2023 End: 09-25-2023 Departed Referred [facility] Start: 09-18-2023 End: 09-18-2023 ambulatory [facility] Work Phone: Start: 09-18-2023 End: 09-18-2023 Departed Referred [facility] Start: 09-18-2023 Registered Referred [facility] Start: 09-13-2023 End: 09-13-2023 ambulatory [facility] Work Phone: Start: 09-13-2023 End: 09-13-2023 Departed Referred [facility] Start: 09-13-2023 Registered Referred [facility] Start: 09-12-2023 End: 09-12-2023 ambulatory [facility] Work Phone: Start: 09-12-2023 End: 09-12-2023 Departed Referred [facility] Start: 09-12-2023 Registered Referred [facility] Start: 09-09-2023 End: 09-09-2023 ambulatory [facility] Work Phone: Start: 09-09-2023 End: 09-09-2023 Departed Referred [facility] Start: 09-09-2023 Registered Referred [facility] Start: 08-26-2023 End: 08-26-2023 ambulatory [facility] Work Phone: Start: 08-26-2023 End: 08-26-2023 Departed Referred [facility] Start: 08-26-2023 Registered Referred [facility] Start: 08-19-2023 End: 08-19-2023 ambulatory [facility] Work Phone: Start: 08-19-2023 End: 08-19-2023 Departed Referred [facility] Start: 08-19-2023 Registered Referred [facility] Start: 08-12-2023 End: 08-12-2023 ambulatory [facility] Work Phone: Start: 08-12-2023 End: 08-12-2023 Departed Referred [facility] Start: 08-12-2023 [facility] Start: 08-05-2023 End: 08-05-2023 ambulatory [facility] Work Phone: Start: 08-05-2023 End: 08-05-2023 Departed Referred [facility] [place] Start: 08-05-2023 [facility] [place] [facility] Start: 07-29-2023 End: 07-29-2023 ambulatory [facility] Work Phone: Start: 07-29-2023 End: 07-29-2023 Departed Referred [facility] Start: 07-22-2023 End: 07-22-2023 ambulatory [facility] Work Phone: Start: 07-22-2023 End: 07-22-2023 Departed Referred [facility] Start: 07-22-[address] Adam Caldera Work Phone: [facility] Start: 07-19-2023 End: 07-19-2023 ambulatory [facility] Work Phone: Start: 07-19-2023 End: 07-19-2023 Departed Referred [facility] Start: 07-19-[address] Adam Caldera Work Phone: [facility] Start: 07-17-2023 End: 07-17-2023 ambulatory [facility] Work Phone: Start: 07-17-2023 End: 07-17-2023 Departed Referred [facility] Start: 07-17-[address] Adam Caldera Work Phone: [facility] Start: 07-10-2023 End: 07-10-[address] Luis Caldera Work Phone: [facility] Work Phone: Start: 07-10-2023 End: 07-10-[address] Luis Caldera Work Phone: [facility] Start: 07-03-2023 End: 07-03-[address] Luis Caldera Work Phone: [facility] Work Phone: Start: 07-03-2023 End: 07-03-[address] Luis Caldera Work Phone: [facility] Start: 07-03-[address] Adam Caldera Work Phone: [facility] Start: 06-26-2023 End: 06-26-[address] Luis Caldera Work Phone: [facility] Work Phone: Start: 06-26-2023 End: 06-26-[address] Luis Caldera Work Phone: [facility] Start: 06-26-[address] Adam Caldera Work Phone: [facility] Start: 06-25-2023 End: 06-25-[address] Luis Caldera Work Phone: [facility] Work Phone: Start: 06-25-2023 End: 06-25-[address] Luis Cadlera Work Phone: [facility] Start: 06-25-[address] Adam Caldera Work Phone: [facility] Start: 06-24-2023 End: 06-24-[address] Luis Caldera Work Phone: [facility] Work Phone: Start: 06-24-2023 End: 06-24-[address] Luis Caldera Work Phone: [facility] Start: 06-24-[address] Adam Caldera Work Phone: [facility] Start: 06-17-2023 End: 06-17-[address] Luis Caldera Work Phone: [facility] Work Phone: Start: 06-17-2023 End: 06-17-[address] Luis Caldera Work Phone: [facility] Start: 06-10-2023 End: 06-10-[address] Luis Caldera Work Phone: [facility] Work Phone: Start: 06-10-2023 End: 06-10-[address] Luis Caldera Work Phone: [facility] Start: 06-10-[address] Adam Caldera Work Phone: [facility] Start: 06-03-2023 End: 06-03-2023 Admission to same day surgery center Dr. Luis Caldera Work Phone: [facility] Start: 06-03-2023 End: 06-03-[address] Luis Caldera Work Phone: [facility] Work Phone: Start: 06-03-2023 End: 06-03-2023 Dr. Luis Caldera Work Phone: [facility] Start: 05-20-2023 End: 05-20-[address] Luis Caldera Work Phone: [facility] Work Phone: Start: 05-20-2023 End: 05-20-[address] Luis Caldera Work Phone: [facility] Start: 05-20-2023 End: 05-20-2023 Dr. Luis Caldera Work Phone: [facility] Start: 05-15-2023 End: 05-15-[address] Luis Caldera Work Phone: [facility] Work Phone: Start: 05-15-2023 End: 05-15-[address] Luis Caldera Work Phone: [facility] Start: 05-15-2023 End: 05-15-2023 Dr. Luis Caldera Work Phone: [facility] Start: 05-06-2023 End: 05-06-[address] Luis Caldera Work Phone: [facility] Work Phone: Start: 05-06-2023 End: 05-06-[address] Luis Caldera Work Phone: [facility] Start: 05-06-2023 End: 05-06-2023 Dr. Luis Caldera Work Phone: [facility] Start: 04-29-2023 End: 04-29-[address] Maggy Roberts Work Phone: [facility] Work Phone: Start: 04-29-2023 End: 04-29-[address] Luis Calder[facility] Phone[facility] Start: 04-29-2023 End: 04-29-2023 Dr. Maggy Roberts Work Phone: [facility] Start: 04-15-2023 End: 04-15-[address] Luis Caldera Work Phone: [facility] Start: 04-15-2023 End: 04-15-2023 Dr. Mag[facility] Roberts [facility] Start: 04-09-2023 End: 04-09-[address] Maggy Roberts Work Phone: [facility] Work Phone: Start: 04-09-2023 End: 04-09-[address] Luis Caldera Work Phone: [facility] Start: 04-09-2023 End: 04-09-2023 Dr. Maggy Roberts [facility] Start: 04-08-2023 End: 04-08-[address] Luis Caldera Work Phone: [facility] Start: 04-08-2023 End: 04-08-2023 Dr. Maggy Roberts Work Phone: [facility] Start: 04-01-2023 End: 04-01-[address] Maggy Roberts Work Phone: [facility] Work Phone: Start: 04-01-2023 End: 04-01-[address] Luis Caldera Work Phone: [facility] Start: 04-01-2023 End: 04-01-2023 Dr. Maggy Roberts Work Phone: [facility] Start: 03-27-2023 End: 03-27-[address] Luis Caldera Work Phone: [facility] Work Phone: Start: 03-27-2023 End: 03-27-2023 Dr. Maggy Roberts Work Phone: [facility] Work Phone: Start: 03-25-2023 End: 03-25-[address] Maggy Roberts Work Phone: [facility] Work Phone: Start: 03-25-2023 End: 03-25-[address] Luis Caldera Work Phone: [facility] Start: 03-25-2023 End: 03-25-2023 Dr. Maggy Roberts Work Phone: [facility] Start: 03-11-2023 End: 03-11-[address] Maggy Roberts Work Phone: [facility] Work Phone: Start: 03-11-2023 End: 03-11-[address] Luis Caldera Work Phone: [facility] Start: 03-11-2023 End: 03-11-2023 Dr. Mag[facility] Phone[facility] Start: 03-04-[address] Adam Caldera Work Phone: [facility] Start: 03-04-2023 Dr. Maggy Bonilla line Work Phone: [facility] Start: 03-01-[address] Adam Caldera Work Phone: [facility] Start: 03-01-2023 Dr. Maggy Bonilla line Work Phone: [facility] Start: 02-25-[address] Adam Caldera Work Phone: [facility] Start: 02-25-2023 Dr. Maggy Bonilla line Work Phone: [facility] Start: 02-22-[address] Adam Caldera Work Phone: [facility] Start: 02-22-2023 Dr. Maggy Bonilla line Work Phone: [facility] Start: 02-20-2023 Dr. Maggy Bonilla line Work Phone: [facility] Start: 02-18-2023 End: 02-18-2023 Dr. Maggy Roberts Work Phone: [facility] Work Phone: Start: 02-14-2023 Dr. Maggy Bonilla line Work Phone: [facility] Start: 02-13-2023 Dr. Maggy Bonilla line Work Phone: [facility] Work Phone: Start: 02-12-2023 Dr. Maggy Bonilla line Work Phone: [facility] Work Phone: Start: 02-12-2023 Dr. Maggy Bonilla line Work Phone: [facility] Start: 02-11-2023 End: 02-13-2023 Evaluation and management of inpatient Dr. Maggy Roberts Work Phone: [facility] Work Phone: Start: 02-11-2023 End: 02-13-2023 Dr. Maggy Roberts Work Phone: [facility]-Medical Surgical 3 Work Phone: Start: 02-10-2023 End: 02-11-2023 Emergency department patient visit Dr. Maggy Roberts Work Phone: [facility] Work Phone: Start: 02-10-2023 End: 02-11-2023 Dr. Maggy Roberts Work Phone: [facility]Emergency Department Work Phone: Start: 02-07-2023 Dr. Maggy Bonilla line Work Phone: [facility] Start: 02-05-2023 Dr. Maggy Bonilla line Work Phone: [facility] Work Phone: Start: 02-05-2023 End: 02-05-2023 Dr. Maggy Roberts Work Phone: [facility] Work Phone: Start: 02-04-2023 Dr. Maggy Bonilla line Work Phone: [facility] Work Phone: Start: 02-03-2023 End: 02-05-2023 Dr. Maggy Roberts Work Phone: [facility] Work Phone: Start: 02-02-2023 Dr. Maggy Bonilla line Work Phone: [facility] Work Phone: Start: 02-01-2023 Dr. Maggy Bonilla line Work Phone: [facility] Start: 02-01-2023 Dr. Maggy Bonilla line Work Phone: [facility] Work Phone: Start: 01-31-2023 Dr. Maggy Bonilla line Work Phone: [facility] Start: 01-31-2023 Dr. Maggy Bonilla line Work Phone: [facility] Work Phone: Start: 01-30-2023 Dr. Maggy Bonilla line Work Phone: [facility] Start: 01-30-2023 Dr. Maggy Bonilla line Work Phone: [facility] Start: 01-29-2023 Dr. Maggy Bonilla line Work Phone: [facility] Work Phone: Start: 01-29-2023 Dr. aMggy Bonilla line Work Phone: [facility] Start: 01-28-2023 Telephone encounter Luis Caldera MD Work Phone: [facility] [place] Comment on above: Immunizations Start: 01-28-2023 Dr. Maggy Bonilla line Work Phone: [facility] Work Phone: Start: 01-28-2023 End: 01-28-2023 Dr. Maggy Roberts Work Phone: [facility] Work Phone: Start: 01-27-2023 Evaluation and management of inpatient Dr. Maggy Roberts [facility] Work [facility]: Start: 01-27-2023 End: 02-05-2023 Dr. Maggy Roberts Work Phone: [facility] Work Phone: Start: 01-26-2023 Non-patient / Non-visit Dr. Eddie Roberts Work Phone: [facility] Start: 01-26-2023 Dr. Maggy Bonilla line Work Phone: [facility] Start: 01-26-2023 Non-patient / Non-visit Dr. Eddie Roberts Work Phone: [facility] Work Phone: Start: 01-26-2023 Dr. Maggy Bonilla line Work Phone: [facility] Work Phone: Start: 01-25-2023 Non-patient / Non-visit Dr. Eddie Roberts Work Phone: [facility] Start: 01-25-2023 Dr. Maggy Bonilla line Work Phone: [facility] Start: 01-25-2023 Non-patient / Non-visit Dr. Eddie Roberts Work Phone: [facility] Work Phone: Start: 01-25-2023 Dr. Maggy Bonilla line Work Phone: [facility] Work Phone: Start: 01-24-2023 Non-patient / Non-visit Dr. Eddie Roberts Work Phone: [facility] Start: 01-24-2023 Dr. Maggy benavides Work Phone: [facility] Start: 01-24-2023 Telephone encounter Luis Caldera MD Work Phone: [facility] Comment on above: Patient Update Start: 01-24-2023 Non-patient / Non-visit Dr. Eddie Roberts Work Phone: [facility] Start: 01-24-2023 Dr. Maggy benavides Work Phone: [facility] Start: 01-24-2023 Non-patient / Non-visit Dr. Eddie Roberts Work Phone: [facility] Work Phone: Start: 01-24-2023 End: 01-24-2023 Dr. Maggy Rboerts Work Phone: [facility] Work Phone: Start: 01-23-2023 Non-patient / Non-visit Dr. Eddie Roberts Work Phone: [facility] Start: 01-23-2023 Dr. Maggy Bonilla line Work Phone: [facility] Start: 01-23-2023 Non-patient / Non-visit Dr. Eddie Roberts Work Phone: [facility] Start: 01-23-2023 Dr. Maggy Bonilla line Work Phone: [facility] Start: 01-22-2023 Non-patient / Non-visit Dr. Eddie Roberts Work Phone: [facility] Start: 01-22-2023 Dr. Maggy Bonilla line Work Phone: [facility] Start: 01-22-2023 Non-patient / Non-visit Dr. Eddie Roberts Work Phone: [facility] Start: 01-22-2023 Dr. Maggy Bonilla line Work Phone: [facility] Start: 01-22-2023 Non-patient / Non-visit Dr. Eddie Roberts Work Phone: [facility] Work Phone: Start: 01-22-2023 Dr. Maggy Bonilla line Work Phone: [facility] Work Phone: Start: 01-21-2023 End: 01-21-2023 Dr. Maggy Roberts Work Phone: [facility] Work Phone: Start: 01-21-2023 Non-patient / Non-visit Dr. Eddie Roberts Work Phone: [facility] Start: 01-21-2023 Dr. Maggy Bonilla line Work Phone: [facility] Start: 01-21-2023 Non-patient / Non-visit Dr. Eddie Roberts Work Phone: [facility] Work Phone: Start: 01-21-2023 Dr. Maggy Bonilla line Work Phone: [facility] Work Phone: Start: 01-21-2023 End: 01-26-2023 Evaluation and management of inpatient Dr. Maggy Roberts [facility] Work [facility] Start: 01-21-2023 End: 01-26-2023 Dr. Maggy Roberts [facility] Work [facility] Start: 01-08-2023 Non-patient / Non-visit Dr. Eddie Roberts Work Phone: [facility] Work Phone: Start: 01-08-2023 Dr. Maggy Bonilla line Work Phone: [facility] Work Phone: Start: 01-07-2023 Non-patient / Non-visit Dr. Eddie Roberts Work Phone: [facility] Work Phone: Start: 01-07-2023 Dr. Maggy Bonilla line Work Phone: [facility] Work Phone: Start: 01-06-2023 Non-patient / Non-visit Dr. Eddie Roberts Work Phone: [facility] Work Phone: Start: 01-06-2023 Dr. Maggy Bonilla line Work Phone: [facility] Work Phone: Start: 01-05-2023 End: 01-08-2023 Evaluation and management of inpatient Dr. Maggy Roberts [facility] Work [facility] Start: 01-05-2023 End: 01-08-2023 Dr. Maggy Roberts [facility] Work [facility] Start: 01-05-2023 Non-patient / Non-visit Dr. Eddie Roberts Work Phone: [facility] Work Phone: Start: 01-05-2023 Dr. Maggy Bonilla line Work Phone: [facility] Work Phone: Start: 01-04-2023 Evaluation and management of inpatient [facility] Start: 01-04-2023 Non-patient / Non-visit Dr. Eddie Roberts Work Phone: [facility] Work Phone: Start: 01-04-2023 observation encounter [facility] Work Phone: Start: 01-04-2023 Dr. Maggy Bonilla line Work Phone: [facility] Work Phone: Start: 01-04-2023 Telephone encounter Luis Caldera MD Work Phone: [facility] Comment on above: Appointment Start: 01-03-2023 Telephone encounter Luis Caldera MD Work Phone: [facility] Comment on above: Appointment; Patient Update Start: 01-03-2023 End: 01-03-2023 ambulatory Justina Escoto PT [facility] Comment on above: Spinal stenosis, lum bar region, without neurogenic claudication (Primary Dx); Primary osteoarthritis of both knees Start: 12-31-2022 End: 12-31-2022 ambulatory Ira Kashuba PROVIDER RELATIONS REPRESENTATIVE Work Phone: [facility] Comment on above: Spinal stenosis, lum bar region, without neurogenic claudication (Primary Dx); Primary osteoarthritis of both knees Start: 12-27-2022 End: 12-27-2022 ambulatory Ira Kashuba PROVIDER RELATIONS REPRESENTATIVE Work Phone: [facility] Comment on above: Spinal stenosis, lum bar region, without neurogenic claudication (Primary Dx); Primary osteoarthritis of both knees Start: 12-24-2022 End: 12-24-2022 ambulatory Justina O'Rafa PT [facility] Comment on above: Spinal stenosis, lum bar region, without neurogenic claudication (Primary Dx); Primary osteoarthritis of both knees Start: 12-17-2022 End: 12-17-2022 ambulatory Justina O'Rafa PT [facility] Comment on above: Spinal stenosis, lum bar region, without neurogenic claudication (Primary Dx); Primary osteoarthritis of both knees Start: 12-14-2022 End: 12-14-2022 ambulatory Justina O'Rafa PT [facility] Comment on above: Spinal stenosis, lum bar region, without neurogenic claudication (Primary Dx); Primary osteoarthritis of both knees Start: 12-12-2022 End: 12-12-2022 ambulatory Justina O'Rafa PT [facility] Comment on above: Spinal stenosis, lum bar region, without neurogenic claudication (Primary Dx); Primary osteoarthritis of both knees Start: 11-20-2022 Refill Abdulaziz Caldera MD Work Phone: [facility] Comment on above: Refill Request Start: 11-19-2022 Telephone encounter Valencia Pascual MA [facility] Comment on above: Anticoagulation Start: 10-22-2022 End: 10-22-2022 Patient encounter procedure Zachary Sabas Work Phone: Podiatry Comment on above: Onychomycosis (Prima ry Dx); Pain in toe of left foot; Amputated toe of right foot (HCC); Diabetic polyneuropathy associated with type 2 diabetes mellitus (HCC) Start: 09-25-2022 Telephone encounter Luis Caldera MD Work Phone: [facility] Comment on above: Anticoagulation Start: 09-07-2022 Telephone encounter Jojo galan MD Work Phone: Neurology Comment on above: Appointment Start: 09-07-2022 End: 09-07-2022 Office outpatient visit 25 minutes Jojo Kaur MD Work Phone: Neurology Comment on above: Driving safety issue (Primary Dx) Start: 08-28-2022 Telephone encounter Luis Caldera MD Work Phone: [facility] [place] Comment on above: Anticoagulation Start: 08-16-2022 Refill Abdulaziz Caldera MD Work Phone: [facility] [place] Comment on above: Refill Request Start: 08-14-2022 Telephone encounter Luis Caldera MD Work Phone: [facility] [place] Comment on above: Anticoagulation Start: 08-09-2022 End: 08-09-2022 Patient encounter procedure Abdulaziz Caldera MD Work Phone: [facility] [place] Comment on above: Type 2 diabetes almaz [...] Telephone encounter Luis Caldera MD Work Phone: [facility] [place] Comment on above: checking on medicati on Start: 08-06-2022 End: 08-06-2022 Patient encounter procedure Zachary Jaimes MD Work Phone: Otolaryngology Comment on above: Dizziness (Primary D x); Chronic frontal sinusitis Start: 07-31-2022 Telephone encounter Luis Caldera MD Work Phone: [facility] [place] Comment on above: Anticoagulation Start: 07-26-2022 Telephone encounter Luis Caldera MD Work Phone: [facility] [place] Comment on above: Home Health-Nursing Update Start: 07-25-2022 Refill Abdulaziz Caldera MD Work Phone: [facility] Comment on above: Refill Request Start: 07-17-2022 Telephone encounter Luis Caldera MD Work Phone: [facility] Comment on above: [facility] PT POC OT plan of care Start: 07-13-2022 Telephone encounter Luis Caldera MD Work Phone: [facility] Comment on above: Nursing Plan of C are Update Start: 07-12-2022 Telephone encounter Luis Caldera MD Work Phone: [facility] Comment on above: Orders Start: 07-11-2022 Non-patient / Non-visit Dr. Praveen Caldera Work Phone: [facility] Start: 07-11-2022 Non-patient / Non-visit Dr. Praveen Caldera Work Phone: [facility] Start: 07-10-2022 Non-patient / Non-visit Dr. Praveen Caldera Work Phone: [facility] Start: 07-10-2022 Non-patient / Non-visit Dr. Praveen Caldera Work Phone: [facility] Start: 07-09-2022 End: 07-11-2022 Evaluation and management of inpatient Dr. Luis Caldera Work Phone: [facility]-Progressive Care Unit Start: 07-09-2022 Refill Amanda Cunningham [facility] Comment on above: Opened In Error Refill Request Start: 07-05-2022 E-mail encounter fro m caregiver Jojo Kaur MD Work Phone: [facility] Start: 07-05-2022 Patient encounter procedure Jojo Kaur MD Work Phone: Neurology Comment on above: Appointment Needs Re scheduled: 08/21/[address] Kaur Start: 06-25-2022 Refill Abdulaziz Caldera MD Work Phone: [facility] Comment on above: Refill Request Start: 05-16-2022 Refill Abdulaziz Caldera MD Work Phone: [facility] Comment on above: Refill Request Start: 04-17-2022 Telephone encounter Justina fry COURT WORKER Work Phone: Adult Psychology Comment on above: behavioral health so cial work Start: 04-17-2022 End: 04-17-2022 Patient encounter procedure Jojo Kaur MD Work Phone: Neurology Comment on above: Generalized anxiety disorder (Primary Dx); Polyneuropathy Start: 04-16-2022 End: 04-16-2022 Patient encounter procedure Abdulaziz Caldera MD Work Phone: [facility] Comment on above: Type 2 diabetes almaz [...] encounter procedure Roselia Madrigal APRN.CNP Work Phone: [facility] Comment on above: Generalized weakness (Primary Dx); Encounter for immunization; Mild depression Start: 04-04-2022 Telephone encounter Luis Caldera MD Work Phone: [facility] Comment on above: Anticoagulation Start: 03-30-2022 End: 03-30-2022 Patient encounter procedure Zachary Obregon Work Phone: Podiatry Comment on above: Onychomycosis (Prima ry Dx); Pain in toe of left foot; Amputated toe of right foot (HCC); Diabetic polyneuropathy associated with type 2 diabetes mellitus (HCC) Start: 03-23-2022 End: 03-23-2022 ambulatory Rosa Elena Caputo [facility] Comment on above: Abnormality of gait due to impairment of balance (Primary Dx) Start: 03-22-2022 Refill Abdulaziz Caldera MD Work Phone: [facility] Comment on above: Refill Request Start: 03-15-2022 End: 03-15-2022 ambulatory Karen Wardter PROVIDER RELATIONS REPRESENTATIVE Work Phone: [facility] Comment on above: Abnormality of gait due to impairment of balance (Primary Dx) Start: 03-12-2022 End: 03-12-2022 ambulatory Karen Weber PROVIDER RELATIONS REPRESENTATIVE Work Phone: [facility] Comment on above: Abnormality of gait due to impairment of balance (Primary Dx) Start: 03-09-2022 End: 03-09-2022 ambulatory Rosa Elena Lemon PT [facility] Comment on above: Abnormality of gait due to impairment of balance (Primary Dx) Start: 03-07-2022 Telephone encounter Luis Caldera MD Work Phone: [facility] Comment on above: Anticoagulation Start: 03-07-2022 End: 03-07-[address] Luis Caldera Work Phone: [facility] Work Phone: Start: 03-07-2022 End: 03-07-[address] Luis Caldera Work Phone: [facility]-Laboratory, Specimen Start: 03-07-2022 End: 03-07-2022 Patient encounter procedure Abdulaziz Caldera MD Work Phone: [facility] Comment on above: Generalized weakness (Primary Dx); Supratherapeutic INR; ANTHONY (acute kidney injury) (HCC) Start: 03-05-2022 End: 03-05-2022 ambulatory Rosa Elena Lemon PT [facility] Comment on above: Abnormality of gait due to impairment of balance (Primary Dx) Start: 03-02-2022 End: 03-02-2022 Emergency department patient visit Dr. Luis Caldera Work Phone: [facility]-Emergency Department Start: 03-02-2022 End: 03-02-2022 ambulatory Rosa Elena Lemon PT [facility] Comment on above: Abnormality of gait due to impairment of balance (Primary Dx) Start: 02-26-2022 End: 02-26-2022 ambulatory Rosa Elena Lemon PT [facility] Comment on above: Abnormality of gait due to impairment of balance (Primary Dx) Start: 02-23-2022 End: 02-23-2022 ambulatory Karen Weber PROVIDER RELATIONS REPRESENTATIVE Work Phone: [facility] Comment on above: Abnormality of gait due to impairment of balance (Primary Dx) Start: 02-14-2022 End: 02-14-2022 ambulatory Rosa Elena Lemon PT [facility] Comment on above: Abnormality of gait due to impairment of balance (Primary Dx) Start: 02-09-2022 End: 02-09-2022 ambulatory Rosa Elena Lemon PT [facility] Comment on above: Abnormality of gait due to impairment of balance (Primary Dx) Start: 02-06-2022 Refill Abdulaziz Caldera MD Work Phone: [facility] Comment on above: Prescription Refills Start: 02-02-2022 End: 02-02-2022 ambulatory Karen Weber PROVIDER RELATIONS REPRESENTATIVE Work Phone: [facility] Comment on above: Abnormality of gait due to impairment of balance (Primary Dx) Start: 01-31-2022 Refill Abdulaziz Caldera MD Work Phone: [facility] Comment on above: Refill Request Start: 01-30-2022 End: 01-30-2022 ambulatory Karen Weber PROVIDER RELATIONS REPRESENTATIVE Work Phone: [facility] Comment on above: Abnormality of gait due to impairment of balance (Primary Dx) Start: 01-23-2022 End: 01-23-2022 ambulatory Karen Weber PROVIDER RELATIONS REPRESENTATIVE Work Phone: [facility] Comment on above: Abnormality of gait due to impairment of balance (Primary Dx) Refill Request; Refi ll Request Start: 01-17-2022 Telephone encounter Luis Caldera MD Work Phone: [facility] Comment on above: Question Start: 01-12-2022 End: 01-12-2022 ambulatory Rosa Elena Poon PT [facility] Comment on above: Abnormality of gait due to impairment of balance (Primary Dx) Start: 01-11-2022 Telephone encounter Roselia miguel APRN.SLEEP TECHNOLOGIST Work Phone: [facility] Comment on above: Patient Question; Me dication Question; Referral Request Start: 01-10-2022 Telephone encounter Justina Monique APRN.SLEEP TECHNOLOGIST Work Phone: Cardiology Comment on above: Results [...] type Start: 01-02-2022 Telephone encounter Justina Monique APRN.SLEEP TECHNOLOGIST Work Phone: [facility] Comment on above: Results Start: 01-01-2022 End: 01-01-2022 Patient encounter procedure Justina Monique APRN.SLEEP TECHNOLOGIST Work Phone: Cardiology Comment on above: Hyperlipidemia with target LDL less than 100 (Primary Dx); Primary hypertension; Thoracic aortic aneurysm without rupture (HCC); 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 Praveen Caldera Work Phone: [facility] Start: 12-28-2021 Non-patient / Non-visit Dr. Praveen Caldera Work Phone: [facility] Start: 12-28-2021 End: 12-29-2021 Evaluation and management of inpatient Dr. Luis Caldera Work Phone: [facility]-Progressive Care Unit Start: 12-27-2021 Non-patient / Non-visit Dr. Praveen Caldera Work Phone: [facility] Start: 12-27-2021 End: 12-27-2021 Emergency department patient visit DR. MELANIA WORKMAN MD. Facility:[facility] Start: 12-27-2021 End: 12-27-2021 Emergency department patient visit DR MELANIA WORKMAN MD [facility] Start: 12-14-2021 End: 12-14-2021 Patient encounter procedure Abdulaziz Caldera MD Work Phone: [facility] Comment on above: COVID-19 (Primary Dx ) Start: 12-08-2021 End: 12-08-2021 ambulatory Abdulazzi Caldera MD Work Phone: [facility] Comment on above: COVID-19 (Primary Dx ) Start: 12-08-2021 End: 12-08-2021 Telemedicine consultation with patient Abdulaziz Caldera MD Work Phone: [facility] Start: 12-08-2021 Telephone encounter Luis Caldera MD Work Phone: [facility] Comment on above: Patient Question Start: 12-06-2021 End: 12-07-2021 Emergency department patient visit [facility]-Emergency Department Start: 11-20-2021 Refill Abdulaziz Caldera [...] contrast Dr. Camron Caldera Work Phone: Start: 04-06-2022 INFLUENZA SEASONAL QUADRIVALENT HIGH DOSE AGE 65+ Roselia Podlogar POWER BUILDER DEVELOPER.SLEEP TECHNOLOGIST Work Phone: Start: 04-06-2022 XanEdu COVID-19 BIVALENT BOOSTER VACCINE, AGE 12+ YR Roselia Podlogar POWER BUILDER DEVELOPER.SLEEP TECHNOLOGIST Work Phone: Start: 04-06-2022 Adult depression screening assessment Roselia Raglandlogar POWER BUILDER DEVELOPER.SLEEP TECHNOLOGIST Work Phone: Start: 03-07-2022 PROTHROMBIN TIME/PT Abdulaziz Caldera MD Work Phone: Start: 03-07-2022 Adult depression screening assessment Abdulaziz Caldera MD Work Phone: Start: 03-02-2022 CT of head without contrast Dr. Camron Caldera Work Phone: Start: 03-02-2022 Plain chest X-ray Dr. Luis Caldera Work Phone: Start: 01-09-2022 Echo tthrc r-t 2d w/wom-mode compl spec&colr d Justina E Leonie POWER BUILDER DEVELOPER.SLEEP TECHNOLOGIST Work Phone: Start: 01-01-2022 Urnls dip stick/tablet [...] Activity Detail Author Start: 10-11-2031 Colonoscopy COLONOSCOPY [facility] Start: 10-11-2031 COLORECTAL CANCER SCREENING COLORECTAL CANCER SCREENING [facility] Start: 10-10-2024 Colonoscopy COLONOSCOPY [facility] Start: 10-10-2024 COLORECTAL CANCER SCREENING COLORECTAL CANCER SCREENING [facility] Start: 01-05-2024 ANNUAL PCP TEAM COLLATERAL ANALYST MARLENE DISEASE VISIT ANNUAL PCP TEAM CHRONIC DISEASE VISIT [facility] Start: 01-05-2024 BP CONTROLLED (<130/80) BP CONTROLLE D (<130/80) [facility] Start: 12-04-2023 BP CONTROLLED (<130/80) BP CONTROLLE D (<130/80) [facility] Start: 11-20-2023 ANNUAL PCP TEAM COLLATERAL ANALYST MARLENE DISEASE VISIT ANNUAL PCP TEAM CHRONIC DISEASE VISIT [facility] Start: 11-20-2023 BP CONTROLLED (<130/80) BP CONTROLLE D (<130/80) [facility] Start: 09-07-2023 BP CONTROLLED (<130/80) BP CONTROLLE D (<130/80) [facility] Start: 08-13-2023 HEMOGLOBIN/HEMATOCRIT HEMOGLOBIN/HEM ATOCRIT [facility] Start: 08-13-2023 SERUM CREATININE SERUM CREATININE [facility] Start: 08-09-2023 ANNUAL PCP TEAM COLLATERAL ANALYST MARLENE DISEASE VISIT ANNUAL PCP TEAM CHRONIC DISEASE VISIT [facility] Start: 08-09-2023 BP CONTROLLED (<130/80) BP CONTROLLE D (<130/80) [facility] Start: 07-12-2023 ANNUAL PCP TEAM COLLATERAL ANALYST MARLENE DISEASE VISIT ANNUAL PCP TEAM CHRONIC DISEASE VISIT [facility] Start: 07-12-2023 BP CONTROLLED (<130/80) BP CONTROLLE D (<130/80) [facility] Start: 06-03-2023 Anes dx/ther nerve block/injection prone pos ANESTH N BLOCK/INJ PRONE [facility] Start: 06-03-2023 Njx dx/ther sbst int rlmnr lmbr/sac w/img gdn NJX INTERLAMINAR LMBR/SAC [facility] Start: 06-03-2023 Injection using fluoroscopic guidance [facility] Start: 06-03-2023 Patient discharge [facility] Start: 04-17-2023 BP CONTROLLED (<130/80) BP CONTROLLE D (<130/80) [facility] Start: 04-16-2023 ANNUAL PCP TEAM COLLATERAL ANALYST MARLENE DISEASE VISIT ANNUAL PCP TEAM CHRONIC DISEASE VISIT [facility] Start: 04-06-2023 [facility] Start: 04-06-2023 ANNUAL PCP TEAM COLLATERAL ANALYST MARLENE DISEASE VISIT ANNUAL PCP TEAM CHRONIC DISEASE VISIT [facility] Start: 04-06-2023 BP CONTROLLED (<130/80) BP CONTROLLE D (<130/80) [facility] Start: 03-30-2023 3 comp foot exam completed DIABETIC FOOT EXAM [facility] Start: 03-15-2023 Influenza vaccination INFLUENZA (#1) [facility] Start: 03-07-2023 Adult depression scr eening assessment DEPRESSION SCREENING [facility] Start: 03-07-2023 ANNUAL PCP TEAM COLLATERAL ANALYST MARLENE DISEASE VISIT ANNUAL PCP TEAM CHRONIC DISEASE VISIT [facility] Start: 03-07-2023 BP CONTROLLED (<130/80) BP CONTROLLE D (<130/80) [facility] Start: 03-07-2023 SERUM CREATININE SERUM CREATININE [facility] Start: 03-05-2023 BP CONTROLLED (<130/80) BP CONTROLLE D (<130/80) [facility] Start: 03-02-2023 Hepatitis B screening URINE ALBUMIN:CREATININE RATIO [facility] Start: 02-13-2023 Patient discharge [facility] Start: 02-12-2023 Care regimes management [facility] Start: 02-12-2023 Notification of physician [facility] Start: 02-12-2023 [facility] Start: 02-12-2023 Blood culture [facility] Start: 02-12-2023 End: 02-12-2023 [facility] Start: 02-11-2023 End: 02-11-2023 Blood culture [facility] Start: 02-11-2023 Assessment of risk o f venous thromboembolism [facility] Start: 02-11-2023 Consultation [facility] Start: 02-11-2023 Insertion of cathete r into peripheral vein [facility] Start: 02-11-2023 Providing care accor ding to standard [facility] Start: 02-11-2023 Provision of activit y privileges [facility] Start: 02-11-2023 Referral to occupati onal therapist [facility] Start: 02-11-2023 Referral to service [facility] Start: 02-11-2023 [facility] Start: 02-11-2023 Admission procedure [facility] Start: 02-11-2023 [facility] Start: 02-11-2023 Patient referral to dietitian [facility] Start: 02-10-2023 End: 02-10-2023 [facility] Start: 02-10-2023 End: 02-10-2023 Blood culture [facility] Start: 02-10-2023 Hemoglobin A1c/Hemoglobin.total in Blood HBA1C [facility] Start: 02-05-2023 Patient discharge [facility] Start: 02-04-2023 Assessment of risk o f venous thromboembolism [facility] Start: 02-04-2023 Bedrest [facility] Start: 02-04-2023 Elevation of head of bed [facility] Start: 02-04-2023 Taking patient vital signs [facility] Start: 02-04-2023 Wound care [facility] Start: 02-04-2023 [facility] Start: 02-04-2023 Catheterization of vein [facility] Start: 02-04-2023 Notification of physician [facility] Start: 02-04-2023 [facility] Start: 02-01-2023 Catheterization of vein [facility] Start: 02-01-2023 Notification of physician [facility] Start: 02-01-2023 [facility] Start: 02-01-2023 [facility] Start: 01-30-2023 Referral to fat pressroom worker [facility] Start: 01-30-2023 End: 01-30-2023 Administration of blood product [facility] Start: 01-29-2023 Speech therapy assessment [facility] Start: 01-29-2023 [facility] Start: 01-28-2023 End: 01-29-2023 [facility] Start: 01-27-2023 Application of intermittent pneumatic compression device [facility] Start: 01-27-2023 Following clinical p athway protocol [facility] Start: 01-27-2023 Methicillin resistan t Staphylococcus aureus screening test [facility] Start: 01-27-2023 Aspiration precautions [facility] Start: 01-27-2023 Assessment of risk o f venous thromboembolism [facility] Start: 01-27-2023 Care regimes management [facility] Start: 01-27-2023 Fall prevention [facility] Start: 01-27-2023 Insertion of cathete r into peripheral vein [facility] Start: 01-27-2023 Introduction of urin barrington catheter [facility] Start: 01-27-2023 Measuring intake and output [facility] Start: 01-27-2023 Providing care accor ding to standard [facility] Start: 01-27-2023 Provision of activit y privileges [facility] Start: 01-27-2023 Referral to gastroenterology service [facility] Start: 01-27-2023 Referral to occupati onal therapist [facility] Start: 01-27-2023 Referral to service [facility] Start: 01-27-2023 [facility] Start: 01-27-2023 Admission procedure [facility] Start: 01-27-2023 CT Chest and Abdomen and Pelvis WO and W contrast IV [facility] Start: 01-27-2023 CT of thorax, abdome n and pelvis with contrast CTA Chst, Abd, Pel W and/or WO [facility] Start: 01-27-2023 Blood chemistry [facility] Start: 01-27-2023 End: 01-28-2023 [facility] Start: 01-27-2023 Patient referral to dietitian [facility] Start: 01-26-2023 Patient discharge [facility] Start: 01-24-2023 Speech therapy assessment [facility] Start: 01-24-2023 Speech therapy assessment [facility] Start: 01-22-2023 Referral to fat pressroom worker [facility] Start: 01-21-2023 Administration of bl ood product [facility] Start: 01-21-2023 Catheterization of vein [facility] Start: 01-21-2023 Application of intermittent pneumatic compression device [facility] Start: 01-21-2023 Following clinical p athway protocol [facility] Start: 01-21-2023 Care regimes management [facility] Start: 01-21-2023 Notification of physician [facility] Start: 01-21-2023 Cardiac monitoring [facility] Start: 01-21-2023 Referral to gastroenterology service [facility] Start: 01-21-2023 End: 01-21-2023 [facility] Start: 01-21-2023 Oxygen therapy [facility] Start: 01-21-2023 Ambulation without limitation [facility] Start: 01-21-2023 Documentation procedure [facility] Start: 01-21-2023 Assessment of risk o f venous thromboembolism [facility] Start: 01-21-2023 Continuous pulse oximetry [facility] Start: 01-21-2023 Insertion of cathete r into peripheral vein [facility] Start: 01-21-2023 Measuring intake and output [facility] Start: 01-21-2023 Providing care accor ding to standard [facility] Start: 01-21-2023 Referral to occupati onal therapist [facility] Start: 01-21-2023 Referral to service [facility] Start: 01-21-2023 Verification routine [place] [facility] Start: 01-21-2023 Vital signs measurements [facility] Start: 01-21-2023 Admission procedure [facility] Start: 01-21-2023 Transfusion of red b lood cells [facility] Start: 01-08-2023 Patient discharge [facility] Start: 01-05-2023 BP CONTROLLED (<130/80) BP CONTROLLE D (<130/80) [facility] Start: 01-05-2023 Admission procedure [facility] Start: 01-05-2023 Telepractice consultation [facility] Start: 01-04-2023 Application of intermittent pneumatic compression device [facility] Start: 01-04-2023 Following clinical p athway protocol [facility] Start: 01-04-2023 Aspiration precautions [facility] Start: 01-04-2023 Assessment of risk o f venous thromboembolism [facility] Start: 01-04-2023 Cardiac monitoring [facility] Start: 01-04-2023 Care regimes management [facility] Start: 01-04-2023 Catheterization of vein [facility] Start: 01-04-2023 Elevation of head of bed [facility] Start: 01-04-2023 Exercises [facility] Start: 01-04-2023 Fall prevention [facility] Start: 01-04-2023 Inhalation therapy procedure [facility] Start: 01-04-2023 Insertion of cathete r into peripheral vein [facility] Start: 01-04-2023 Introduction of urin barrington catheter [facility] Start: 01-04-2023 Measuring intake and output [facility] Start: 01-04-2023 Notification of physician [facility] Start: 01-04-2023 Providing care accor ding to standard [facility] Start: 01-04-2023 Provision of activit y privileges [facility] Start: 01-04-2023 Referral to occupati onal therapist [facility] Start: 01-04-2023 Referral to service [facility] Start: 01-04-2023 Tobacco use cessatio n education [facility] Start: 01-04-2023 Verification routine [facility] Start: 01-04-2023 Admission procedure [facility] Start: 01-04-2023 End: 01-04-2023 [facility] Start: 01-04-2023 End: 01-04-2023 Blood culture [facility] Start: 01-04-2023 Patient referral to dietitian [facility] Start: 01-01-2023 ANNUAL PCP TEAM COLLATERAL ANALYST MARLENE DISEASE VISIT ANNUAL PCP TEAM CHRONIC DISEASE VISIT [facility] Start: 01-01-2023 BP CONTROLLED (<130/80) BP CONTROLLE D (<130/80) [facility] Start: 01-01-2023 Hepatitis B surface antibody level LDL CHOLESTEROL [facility] Start: 01-01-2023 SERUM CREATININE SERUM CREATININE [facility] Start: 12-14-2022 ANNUAL PCP TEAM COLLATERAL ANALYST MARLENE DISEASE VISIT ANNUAL PCP TEAM CHRONIC DISEASE VISIT [facility] Start: 12-08-2022 ANNUAL PCP TEAM COLLATERAL ANALYST MARLENE DISEASE VISIT ANNUAL PCP TEAM CHRONIC DISEASE VISIT [facility] Start: 12-08-2022 BP CONTROLLED (<130/80) BP CONTROLLE D (<130/80) [facility] Start: 09-06-2022 ANNUAL PCP TEAM COLLATERAL ANALYST MARLENE DISEASE VISIT ANNUAL PCP TEAM CHRONIC DISEASE VISIT [facility] Start: 09-02-2022 Hemoglobin A1c/Hemoglobin.total in Blood HBA1C [facility] Start: 08-30-2022 SERUM CREATININE SERUM CREATININE [facility] Start: 08-09-2022 End: 10-09-2022 CBC W Auto Differential panel - Blood CBC + DIFF Lab Routine Type 2 diabetes mellitus with diabetic neuropathy, with long-term current use of insulin (HCC) Expected: 08/09/2022, Expires: 10/09/2022 [facility] Work Phone: Comment on above: Expected: 08/09/2022 , Expires: 10/09/2022 Start: 08-09-2022 End: 10-09-2022 Comprehensive metabolic 2000 panel - Serum or Plasma COMP METABOLIC PANEL Lab Routine Type 2 diabetes mellitus with diabetic neuropathy, with long-term current use of insulin (HCC) Expected: 08/09/2022, Expires: 10/09/2022 [facility] Work Phone: Comment on above: Expected: 08/09/2022 , Expires: 10/09/2022 Start: 08-09-2022 End: 10-09-2022 Hemoglobin A1c in Blood HGB A1C Lab Routine Type 2 diabetes mellitus with diabetic neuropathy, with long-term current use of insulin ([facility]) Expected: 08/09/2022, Expires: 10/09/2022 [facility] Work Phone: Comment on above: Expected: 08/09/2022 , Expires: 10/09/2022 Start: 08-06-2022 COVID-19 VACCINE (6 - Pfizer series) COVID-19 VACCINE (6 - Pfizer series) [facility] Start: 07-15-2022 ADVANCE DIRECTIVE DISCUSSION ADVANCE DIRECTIVE DISCUSSION [facility] Start: 07-15-2022 DEPRESSION ASSESSMENT DEPRESSION ASS ESSMENT [facility] Start: 07-11-2022 Patient discharge [facility] Work Phone: Start: 07-11-2022 Referral to service [facility] Work Phone: Start: 07-10-2022 [facility] Work Phone: Start: 07-10-2022 Following clinical p athway protocol [facility] Work Phone: Start: 07-10-2022 Assessment of risk o f venous thromboembolism [facility] Work Phone: Start: 07-10-2022 Cardiac monitoring [facility] Work Phone: Start: 07-10-2022 Care regimes management [facility] Work Phone: Start: 07-10-2022 Catheterization of vein [facility] Work Phone: Start: 07-10-2022 Continuous pulse oximetry [facility] Work Phone: Start: 07-10-2022 Elevation of head of bed [facility] Work Phone: Start: 07-10-2022 Exercises [facility] Work Phone: Start: 07-10-2022 Fall prevention [facility] Work Phone: Start: 07-10-[address] anned interventions [facility] Work Phone: Start: 07-10-2022 Incentive spirometry [facility] Work Phone: Start: 07-10-2022 Insertion of cathete r into peripheral vein [facility] Work Phone: Start: 07-10-2022 Introduction of urin barrington catheter [facility] Work Phone: Start: 07-10-2022 Measuring intake and output [facility] Work Phone: Start: 07-10-2022 Notification of physician [facility] Work Phone: Start: 07-10-2022 Oxygen therapy [facility] Work Phone: Start: 07-10-2022 Providing care accor ding to standard [facility] Work Phone: Start: 07-10-2022 Provision of activit y privileges [facility] Work Phone: Start: 07-10-2022 Referral to fat pressroom worker [facility] Work Phone: Start: 07-10-2022 Referral to occupati onal therapist [facility] Work Phone: Start: 07-10-2022 Referral to service [facility] Work Phone: Start: 07-10-2022 Tobacco use cessatio n education [facility] Work Phone: Start: 07-10-2022 [facility] Work Phone: Start: 07-10-2022 Patient referral to dietitian [facility] Work Phone: Start: 07-09-2022 Admission procedure [facility] Work Phone: Start: 03-15-2022 HEMOGLOBIN/HEMATOCRIT HEMOGLOBIN/HEM ATOCRIT [facility] Start: 03-15-2022 Influenza vaccination INFLUENZA (#1) [facility] Start: 03-07-2022 End: 05-07-2022 Comprehensive metabolic 2000 panel - Serum or Plasma [facility] Work Phone: Comment on above: Expected: 03/07/2022 , Expires: 05/07/2022 Start: 03-02-2022 [facility] Work Phone: Start: 02-27-2022 Hemoglobin A1c/Hemoglobin.total in Blood HBA1C [facility] Start: 02-20-2022 Hepatitis C antibody , confirmatory test DILATED RETINAL EXAM [facility] Start: 01-30-2022 End: 04-01-2022 ALBUMIN/CREAT RATIO RND UR ALBUMIN/CREAT RATIO RND UR Lab Routine Type 2 diabetes mellitus with stage 3 chronic kidney disease, with long-term current use of insulin (HCC) Expected: 01/30/2022, Expires: 04/01/2022 [facility] Work Phone: Comment on above: Expected: 01/30/2022 , Expires: 04/01/2022 Start: 01-30-2022 End: 04-01-2022 Hemoglobin A1c in Blood HGB A1C Lab Routine Type 2 diabetes mellitus with stage 3 chronic kidney disease, with long-term current use of insulin (HCC) Expected: 01/30/2022, Expires: 04/01/2022 [facility] Work Phone: Comment on above: Expected: 01/30/2022 , Expires: 04/01/2022 Start: 01-30-2022 End: 04-01-2022 SCHEDULE LAB TESTING SCHEDULE LAB TESTING Lab Routine Expected: 01/30/2022, Expires: 04/01/2022 [facility] Work Phone: Comment on above: Expected: 01/30/2022 , Expires: 04/01/2022 Start: 01-05-2022 End: 03-07-2022 Magnesium [Mass/volume] in Serum or Plasma MAGNESIUM BLD Lab Routine Altered mental status, unspecified altered mental status type Expected: 01/05/2022, Expires: 03/07/2022 [facility] Work Phone: Comment on above: Expected: 01/05/2022 , Expires: 03/07/2022 Start: 01-05-2022 End: 03-07-2022 Methylmalonate [Moles/volume] in Serum or Plasma METHYLMALONIC ACID Lab Routine Altered mental status, unspecified altered mental status type Expected: 01/05/2022, Expires: 03/07/2022 [facility] Work Phone: Comment on above: Expected: 01/05/2022 , Expires: 03/07/2022 Start: 01-01-2022 End: 03-03-2022 25-hydroxyvitamin D3 [Mass/volume] in Serum or Plasma [facility] Work Phone: Comment on above: Expected: 01/01/2022 , Expires: 03/03/2022 Start: 01-01-2022 End: 03-03-2022 Lipid 1996 panel - Serum or Plasma [facility] Work Phone: Comment on above: Expected: 01/01/2022 , Expires: 03/03/2022 Start: 12-30-2021 Blood chemistry [facility] Work Phone: Start: 12-29-2021 Patient discharge [facility] Work Phone: Start: 12-28-2021 Admission procedure [facility] Work Phone: Start: 12-27-2021 End: 12-28-2021 [facility] Work Phone: Start: 12-27-2021 Oxygen therapy [facility] Work Phone: Start: 12-27-2021 Incentive spirometry [facility] [place] [place] Work Phone: Start: 12-27-2021 [facility] Work [facility]: Start: 12-27-2021 Assessment of risk o f venous thromboembolism [facility] Work Phone: Start: 12-27-2021 Following clinical p athway protocol [facility] Work Phone: Start: 12-27-2021 Insertion of cathete r into peripheral vein [facility] Work Phone: Start: 12-27-2021 Measuring intake and output [facility] Work Phone: Start: 12-27-2021 Providing care accor ding to standard [facility] Work Phone: Start: 12-27-2021 End: 12-27-2021 Referral to service [facility] Work Phone: Start: 12-06-2021 Bacteria identified in Blood by Culture Blood Culture [facility] Work Phone: Start: 11-23-2021 3 comp foot exam completed DIABETIC FOOT EXAM [facility] Start: 11-16-2021 Hepatitis B screening URINE ALBUMIN:CREATININE RATIO [facility] Start: 11-16-2021 Hepatitis B surface antibody level LDL CHOLESTEROL [facility] Start: 10-28-2021 Adult depression scr eening assessment DEPRESSION SCREENING [facility] Start: 09-15-2021 COVID-19 VACCINE (4 - Booster for Pfizer series) COVID-19 VACCINE (4 - Booster for Pfizer series) [facility] Start: 07-15-2021 ADVANCE DIRECTIVE DISCUSSION ADVANCE DIRECTIVE DISCUSSION [facility] Start: 07-15-2021 DEPRESSION ASSESSMENT DEPRESSION ASS ESSMENT [facility] Start: 03-12-2021 Colonoscopy COLONOSCOPY [facility] Start: 03-12-2021 COLORECTAL CANCER SCREENING COLORECTAL CANCER SCREENING [facility] Start: 12-25-2020 Urine microalbumin profile DTA P,TDAP,TD (3 - Td or Tdap) [facility] Start: 10-12-1992 COLOGUARD (FIT-DNA) COLOGUARD (FIT-D NA) [facility] Start: 10-12-[address] [facility] Start: 10-12-1992 FECAL OCCULT BLOOD FECAL OCCULT BLOO D [facility] Start: 10-12-1992 SIGMOIDOSCOPY SIGMOIDOSCOPY Maryjane delgado [facility] Start: 10-12-1965 BP CONTROLLED (<130/80) BP CONTROLLE D (<130/80) [facility] Alanine aminotransfe rase [Enzymatic activity/volume] in Serum or Plasma [facility] Aspartate aminotrans ferase [Enzymatic activity/volume] in Serum or Plasma [facility] Bacteria identified in Blood by Culture Blood Culture [facility] Bacteria identified in Urine by Culture Urine Culture [facility] Creatine kinase [Enz ymatic activity/volume] in Serum or Plasma [facility] End: 01-05-2023 EPIL EEG ROUTINE EPIL EEG ROUTINE NEUROLOGY Routine Altered mental status, unspecified altered mental status type 1 Occurrences starting 01/05/2022 until 01/05/2023 [facility] Work Phone: Comment on above: 1 Occurrences starti ng 01/05/2022 until 01/05/2023 Lipid 1996 panel - S chavez or Plasma [facility] Magnesium [Mass/volu me] in Serum or Plasma [facility] Magnesium [Mass/volu me] in Serum or Plasma [facility] Patient Education [facility] Work Phone: Patient referral [facility] Work Phone: PT PLAN OF CARE CERTIFICATION PT PLAN OF CARE CERTIFICATION Procedures Routine Abnormality of gait due to impairment of balance Ordered: 01/12/2022 [facility] Comment on above: Ordered: 01/12/2022 PT PLAN OF CARE CERTIFICATION PT PLAN OF CARE CERTIFICATION Procedures Routine Abnormality of gait due to impairment of balance Ordered: 03/09/2022 [facility] Comment on above: Ordered: 03/09/2022 SURGICAL PATHOLOGY [facility] Work Phone: Comment on above: Release Upon Orderin g for 1 Occurrences starting 10/10/2021, 1 completed [facility] c [facility] Immunizations Immunization Date Immunization Notes Care Provider [facility] 04-06-2022 COVID-19 booster vaccine, age 12+ yr, bivalent (PFIZER-BIONTECH) Roselia Madrigal POWER BUILDER DEVELOPER.SLEEP TECHNOLOGIST Work Phone: [facility] 04-06-2022 Influenza, high dose seasonal Dr. Luis Caldera MD Work Phone: [facility] 04-06-2022 influenza, high dose seasonal, preservative-free Dr. Maggy Roberts Work Phone: [facility] 04-06-2022 influenza, high-dose , quadrivalent vaccine (FLUZONE HIGH DOSE QUADRIVALENT) Roselia Madrigal POWER BUILDER DEVELOPER.SLEEP TECHNOLOGIST Work Phone: [facility] 03-28-2022 influenza, injectabl e, quadrivalent, preservative free Dr. Maggy Roberts Work Phone: [facility] 03-28-2022 influenza, seasonal, injectable Dr. Maggy Roberts Work Phone: [facility] 06-14-2021 Influenza, high dose seasonal Dr. Luis Caldera MD Work Phone: [facility] 06-14-2021 influenza, high dose seasonal, preservative-free Dr. Maggy Roberts Work Phone: [facility] 06-14-2021 influenza, high-dose , quadrivalent vaccine (FLUZONE HIGH DOSE QUADRIVALENT) Abdulaziz Caldera MD Work Phone: [facility] Work Phone: 05-18-2021 Covid (Pfizer) Dr. Maggy Roberts Work Phone: [facility] 02-24-2021 zoster vaccine recombinant Abdulaziz Caldera MD Work Phone: [facility] 12-13-2020 Covid (Pfizer) Dr. Ramón Caldera Work Phone: [facility] 09-30-2020 COVID-19 vaccine, ag e 12+ yr (PFIZER-BIONTECH - PURPLE TOP) Abdulaziz Caldera MD Work Phone: [facility] 09-09-2020 COVID-19 vaccine, ag e 12+ yr (PFIZER-BIONTECH - PURPLE TOP) Abdulaziz Caldera MD Work Phone: [facility] 04-16-2020 Influenza, high dose seasonal Dr. Luis Caldera MD Work Phone: [facility] 04-16-2020 influenza, high dose seasonal, preservative-free Dr. Maggy Roberts Work Phone: [facility] 04-16-2020 influenza, high-dose , quadrivalent vaccine (FLUZONE HIGH DOSE QUADRIVALENT) Abdulaziz Caldera MD Work Phone: [facility] 03-14-2020 zoster vaccine recombinant Abdulaziz Caldera MD Work Phone: [facility] Work Phone: 04-02-2019 Influenza, high dose seasonal Dr. Luis Caldera MD Work Phone: [facility] 04-02-2019 influenza, high dose seasonal, preservative-free Abdulaziz Caldera MD Work Phone: [facility] Work Phone: 05-08-2018 Influenza virus vaccine [facility] 04-15-2018 Influenza, high dose seasonal Dr. Luis Caldera MD Work Phone: [facility] 04-15-2018 influenza, high dose seasonal, preservative-free Abdulaziz Caldera MD Work Phone: [facility] 06-13-2017 Influenza, high dose seasonal Dr. Luis Caldera MD Work Phone: [facility] 06-13-2017 influenza, high dose seasonal, preservative-free Abdulaziz Caldera MD Work Phone: [facility] 06-20-2016 influenza, high dose seasonal, preservative-free Abdulaziz Caldera MD Work Phone: [facility] 11-24-2015 pneumococcal polysaccharide vaccine, 23 valent Abdulaziz Caldera MD Work Phone: [facility] 05-16-2015 Influenza, high dose seasonal Dr. Luis Caldera MD Work Phone: [facility] 05-16-2015 influenza, high dose seasonal, preservative-free Abdulaziz Caldera MD Work Phone: [facility] 10-27-2014 pneumococcal conjuga te vaccine, 13 valent Abdulaziz Caldera MD Work Phone: [facility] 10-27-2014 zoster vaccine, live Socrates Caldera MD Work Phone: [facility] 04-14-2013 Influenza virus vaccine [facility] 06-11-2011 influenza virus vaccine, unspecified formulation Abdulaziz Caldera MD Work Phone: [facility] 12-25-2010 tetanus toxoid, redu veronika diphtheria toxoid, and acellular pertussis vaccine, adsorbed Abdulaziz Caldera MD Work Phone: [facility] 04-25-2009 pneumococcal polysaccharide vaccine, 23 valrosette Caldera MD Work Phone: [facility] 03-21-2000 diphtheria and tetan us toxoids, adsorbed for pediatric use Abdulaziz Caldera MD Work Phone: [facility] Work Phone: 02-11-1961 poliovirus vaccine, inactivated Abdulaziz Caldera MD Work Phone: [facility] Work Phone: 03-25-1959 poliovirus vaccine, inactivated Abdulaziz Caldera MD Work Phone: [facility] Work Phone: 10-16-1956 poliovirus vaccine, inactivated Abdulaziz Caldera MD Work Phone: [facility] Work Phone: 01-12-1956 poliovirus vaccine, inactivated Abdulaziz Caldera MD Work Phone: [facility] Work Phone: 12-03-1955 poliovirus vaccine, inactivated Abdulaziz Caldera MD Work Phone: [facility] Work Phone: Payers Date Payer Category Payer Self-pay [id number] 2021 Medicare [id number] 2021 Unknown [id number] 2012 Unknown HOSPITAL/MEDICAL GENERIC MEDICAL GENERIC [id number] 2012-Present [phone] [address] [place] [address] Indemnity [id number] 2012 Unknown HOSPITAL/MEDICAL GENERIC MEDICAL GENERIC [id number] 2012-Present [phone] [address] [place] [address] Indemnity [id number] 2012 Medicare MEDICARE MEDICAR E A AND B [id number] 2012-Present [phone] [place] [address] Medicare [id number] 2012 Medicare MEDICARE MEDICAR E A AND B [id number] 2012-Present [phone] [address] [address] [place] [address] Medicare [id number] 1947 Unknown [id number] Unknown [id number] 2.16.840.1.628209.3.579.2.462 Unknown [id number] 2.16.840.1.738202.3.579.2.462 Unknown [id number] 2.16.840.1.433740.3.579.2.462 Unknown [id number] 2.16.840.1.334643.3.579.2.462 Unknown [id number] 2.16.840.1.347228.3.579.2.462 Unknown [id number] 2.16.840.1.984353.3.579.2.462 Unknown [id number] 2.16.840.1.143222.3.579.2.462 Unknown [id number] 2.16.840.1.467278.3.579.2.462 Unknown [id number] 2.16.840.1.616677.3.579.2.462 Unknown [id number] 2.16.840.1.929984.3.579.2.462 Unknown [id number] 2.16.840.1.285412.3.579.2.462 Unknown [id number] 2.16.840.1.506378.3.579.2.462 Unknown [id number] 2.16.840.1.213978.3.579.2.462 Unknown [id number] 2.16.840.1.404534.3.579.2.462 Unknown [id number] 2.16.840.1.340695.3.579.2.462 Unknown [id number] 2.16.840.1.513577.3.579.2.462 Unknown [id number] 2.840.1.342580.3.579.2.462 Unknown [id number] 2.840.1.171376.3.579.2.462 Unknown [id number] 2.840.1.101587.3.579.2.462 Unknown [id number] 2.840.1.913619.3.579.2.462 Unknown [id number] 2.840.1.844685.3.579.2.462 Unknown [id number] 2.840.1.629547.3.579.2.462 Unknown [id number] 2.840.1.738535.3.579.2.462 Unknown [id number] 2.840.1.792007.3.579.2.462 Unknown [id number] 2.840.1.301108.3.579.2.462 Unknown [id number] 2.840.1.863061.3.579.2.462 Unknown [id number] 2.840.1.923841.3.579.2.462 Unknown [id number] 2.840.1.170221.3.579.2.462 Unknown [id number] 2.840.1.381274.3.579.2.462 Unknown [id number] 2.840.1.114411.3.579.2.462 Unknown [id number] Unknown [id number] Unknown [id number] Social History Date Type Detail Facility Start: 11-23-2020 End: 10-07-2023 Tobacco smoking status NHIS Never smoked tobacco [facility] Start: 09-06-2021 End: 12-03-2022 Alcohol intake Current non-drinker of alcohol (finding) [facility] Start: 1945 Sex Assigned At Not on file [facility] Start: 08-07-2021 End: 04-17-2022 Exposure to SARS-CoV-2 (event) Not sure [facility] Start: 12-06-2021 End: 05-30-2023 Tobacco smoking status NHIS Unknown if ever smoked [facility] Start: 01-10-2019 Spouse/ Signif icant Other [facility] Start: 1945 Sex Assigned At Male [facility] Work Phone: Tobacco smoking status No Smokin g Status Entered [facility] Start: 01-02-2022 End: 01-12-2022 Exposure to SARS-CoV-2 (event) Unable to assess [facility] Work Phone: Start: 11-23-2020 End: 04-06-2022 Tobacco use and exposure Smokeless tobacco non-user [facility] Work Phone: Start: 09-16-2013 Rare [facility] Start: 09-16-2013 None [facility] Start: 09-16-2013 Non-smoker [facility] Start: 11-19-2022 End: 12-03-2022 History of Social function [facility] Work Phone: Start: 11-19-2022 End: 12-03-2022 Tobacco use panel [facility] Work Phone: Adult Depression Screening Assessment 2 [facility] Work Phone: Start: 10-15-2024 End: 10-22-2024 Sex Male (finding) [facility] Medical Equipment Procedure Code Equipment Code [...] ABS FDA Start: 03-28-2018 FDA Start: 03-28-2018 ([id number]) [id number] FDA Start: 02-04-2023 ([id number]) ()[id number] FDA Start: 02-04-2023 ([id number]) ()[id number] FDA Start: 02-04-2023 FDA Start: 03-28-2018 [...] Assessment Result Facility 02-13-2023 Functional status Bedrest [facility] Work Phone: 02-05-2023 Functional status Chair [facility] Work Phone: 02-04-2023 Functional status Bedrest [facility] Work Phone: 01-26-2023 Functional status Chair mode [facility] Work Phone: 01-26-2023 Functional status With Assist of 2;Bedres t [facility] Work Phone: 01-25-2023 Functional status None [facility] Work Phone: 01-08-2023 Functional status Chair [facility] Work Phone: 07-11-2022 Functional status Ambulates [facility] Work Phone: 12-29-2021 Functional status Chair [facility] Work Phone: Mental Status Date Assessment Result Facility 06-03-2023 Cognitive function Voice/Name [facility] Work Phone: 02-13-2023 Cognitive function Voice/Name [facility] Work Phone: 02-11-2023 Cognitive function Awake;Drowsy [facility] Work Phone: 02-10-2023 Cognitive function Awake;Appropr iate;Follows Commands;Drowsy [facility] Work Phone: 02-05-2023 Cognitive function Voice/Name [facility] Work Phone: 02-04-2023 Cognitive function Appropriate;[facility] Work Phone: 01-26-2023 Cognitive function Voice/Name [facility] Work Phone: 01-21-2023 Cognitive function Level Of Cons ciousness Drowsy;Lethargic [facility] Work Phone: 01-08-2023 Cognitive function Voice/Name [facility] Work Phone: 01-04-2023 Cognitive function Voice/Name [facility] Work Phone: 07-11-2022 Cognitive function Voice/Name [facility] Work Phone: 07-10-2022 Cognitive function Appropriate;[facility] Work Phone: 03-02-2022 Cognitive function Voice/Name [facility] Work Phone: 12-29-2021 Cognitive function Voice/Name [facility] Work Phone: 12-06-2021 Cognitive function Level Of Cons ciousness Awake;Alert;Appropriate [facility] Work Phone: Clinical Notes 10-25-2014 to [...] sinus syndrome chronic October 12, 2024 1:09pm [facility] Work Phone: [phone] [facility] 02-13-2023 Consult note Author Haile Bautista [facility] February 13, 2023 2:50pm Note Date/Time February 13, 2023 2:5 0pm [facility] Medical Records Department [address] [place] [address] Counseling Note - Pharmacy 02/13/23 1449 MR#: [id number] Acct: [id number] Name: RICHARD ROY Rep #:[id number] : 1945 77 From: Haile Bautista PCP: Dr. Luis Caldera MD Status :ADM IN Location[place] [id number] [place] [facility] Recon[facility] Pharmacy Service has performed discharge [...] Signature (if applicable): Date CC: ~ Signed [facility] Work Phone: 1([phone]) 969-662508-02-2023 Discharge summary Author Gabriel Giraldo [facility] February 13, 2023 2:24pm Note Date/Time February 13, 2023 2:1 5pm [facility] Medical Records Department [address] [place] [address] [facility] MR#: [id number] Acct: [id number] Name: RICHARD ROY Rep #:[id number] : [...] mg PO QHS Patient Comments: PRN PER LONG TERM MAR. acetaminophen 325 mg Tablet 650 mg PO TID Patient Comments: PRN PER LONG TERM MAR cephalexin 500 mg capsule 500 mg [...] in before D/C Order can be placed): Jail Facility 02/13/23 1424 <Electronically signed by Gabriel Giraldo DO> Cosigner Signature (if applicable): CC: Dr. Luis Caldera MD; Dr. Smith Leija MD ~ [facility] Work Phone: 1(253) 234-415208-01-2023 Progress note Author Gabriel Giraldo [facility] February 12, 2023 4:48pm Note Date/Time February 12, 2023 4:4 8pm [facility] Medical Records Department [address] [place] [address] Progress Note - Hospitalist 02/12/23 1639 MR#: [id number] Acct: [id number] Name: RICHARD ROY Rep #:[id number] : 1945 77 From: Gabriel Giraldo DO PCP: Dr. Luis Caldera MD Status :ADM IN Location: [place] [address] Reason for Visit Reason for Visit: Diagnoses [...] 76.5 H, Lymph % (Auto) 8.1 L, Taylor % (Auto) 12.5 H, Eos % (Auto) [...] Bacteremia: PLAN: Plan 1. Bacteremia with gram-negative sheramn-identification to follow at this time, patient remains [...] 35 minutes Charges/Coding Visit Charges Inpatient E&M: 75617 Subs Hosp L2 02/12/23 1640 <Electronically signed by Gabriel Giraldo DO> Cosigner Signature (if applicable): CC: ~ Signed [facility] Work Phone: 1(400) 238-287408-01-2023 Consult note Author Smith Leija [facility] February 12, 2023 2:16pm Note Date/Time February 12, 2023 2:1 6pm [facility] Medical Records Department [address] [place] [address] Consultation - Infectious Dx 02/12/23 1412 MR#: [id number] Acct: [id number] Name: RICHARD ROY Rep #:[id number] : 1945 77 From: Smith huang MD PCP: Dr. Luis Caldera MD Status :[facility] & Plan Assessment/Plan (1) Bacteremia: PLAN: [...] keflex in ED 02/10, sent back to [facility]. Had low grade fever, returned here with (+) ucx and (+)bcx with GNR. Admitted on ceftriaxone, feeling ok today. No complaints, deniesfever, chest pain, abd pain, dysuria, n/v/d. Full ROS performed and neg except as noted above. [facility] Medical History AAA (abdominal aortic aneurysm) Amputation [...] Hx of abdominal surgery Social History housing: residential current occupational status: retired Smoking Status: Never [...] 76.5 H, Lymph % (Auto) 8.1 L, Taylor % (Auto) 12.5 H, Eos % (Auto) 0.8, Baso % (Auto) 0.1, Absolute Neuts(auto) 5.7, Absolute Lymphs (auto) 0.61 L, Nucleated RBC % 0, PT 19.3 H, INR 1.6 Rhythm Strip Rhythm Strip: paced Rate: 95 Ectopy: None 02/12/23 1416 <Electronically signed by Smith Leija MD> Cosigner Signature (if applicable): CC: Dr. Luis Caldera MD; Dr. Smith Leija MD~ Signed [facility] Work Phone: 1([phone]) 881-404808-01-2023 Discharge summary Author Dandy Sauer [facility] February 12, 2023 2:03am Note Date/Time February 11, 2023 5:05 pm [facility] Medical Records Department [address] [place] [address] Emergency Department Summary 02/11/23 MR#: [id number] Acct: [id number] Name: RICHARD ROY Rep #:[id number] : 1945 77 From: Dandy Sauer MD PCP: Dr. Luis Caldera MD Status :ADM IN Location: [place] [address] HPI History of Present Illness Chief Complaint: [...] mostly the lethargy is the issue acutely. [facility] Medical History (Updated 02/11/23 @ 19:31 by [...] Hx of abdominal surgery Social History housing: residential current occupational status: retired Smoking Status: Never [...] infection), Bacteremia Disposition [facility]position[facility] Discharge Date/Time: 02/11/23 19:06 What to do if you have Problems For any increased pain, shortness of breath, bleeding, nausea or vomiting, chestpain, or any unexpected problems, contact your Primary Care Provider. Call [facility] ([phone]) or report to the closest Emergency Room. Call 911 if necessary. 02/12/23 0203 <Electronically signed by Dandy Sauer MD> Cosigner Signature (if applicable): CC: Dr. Luis Caldera MD ~ Signed [facility] Work Phone: [phone]) 325-421907-31-2023 History and physical note Author Jesus Burnham [facility] February 11, 2023 7:38pm Note Date/Time February 11, 2023 7:39 pm [facility] Medical Records Department [address] [place] [address] History & Physical Exam 02/11/231928 MR#: [id number] Acct: [id number] Name: RICHARD ROY Rep #:[id number] : 1945 77 From: Jesus Burnham MD PCP: Dr. Luis Caldera MD Status :ADM IN Location[place] [facility] [id number] HPI - General General Date of Admission: [...] tract infection and sent back to the residential facility, however, today the patient has become more obtunded and sleeping excessively. Lactic acid elevation is noted and patient is on pacemaker. He denies any chest pain, shortness of breath and/or fevers orchills however is not a great historian at present time. Patient's is present at bedside and apparently the son is the DURABLE POWER OF SPA MANAGER for healthcare and has orders signed for DNR CCA with no intubation. He will be admitted to the general medical floor placed on Rocephin, consult for infectiousdisease due to new implanted pacemaker. [facility] Medical History Amputation of right great toe [...] Hx of abdominal surgery Social History housing: residential current occupational status: retired Smoking Status: Never [...] on Coumadin Charges/Coding Visit Charges Inpatient E&M: 20609 Init Hosp L2 02/11/231937 <Electronically signed by Jesus Burnham MD> Cosigner Signature (if applicable): CC: Dr. Luis Caldera MD; Dr. Jesus Burnham MD~ Signed [facility] Work Phone: 1(777) 710-335107-17-2023 Miscellaneous Notes* Telephone Encounter - Tania Heller LPN - 01/28/2023 2:22 PM EDT Miya with [facility] calls to report pt was admitted to their facility over the weekend. Miya is requesting immunization record be faxed to: [phone]. Immunization record faxed as requested. [facility] Discharge summary Author Ryan Tinoco [facility] January 26, 2023 12:56pm Note Date/Time January 26, 2023 12:4 6pm [facility] Medical Records Department [address] [place] [address] Discharge Summary 01/26/23 1157 MR#: [id number] Acct: [id number] Name: [place] ROY Rep #:[id number] : 1945 77 From: Ryan Delgado PCP: Dr. Luis Caldera MD Status :[facility]M [facility] Prov[facility] Date of Admission: 01/21/23 Date of Discharge: 01/26/23 Primary Care Physician: Dr. Luis Caldera MD Consultations 01/21/23 11:52 Consult: Gastroenterology Routine Consulting Provider: [facility] Reason for Consult: Upper GI BLeed [...] is a 77-year-old gentleman being admitted from [facility] for multiple episodes of syncope and upper [...] the . His medical care is under [facility]. 01/22: Hemoglobin dropped to 8.9. [...] there was 2 dropped heartbeat in EKG. monitor worker shows heart rate slowed down to 48 to 60/min. EKG in the morning about 6 AM today shows sinus rhythm with second- degree Mobitz type II block, RBBB, LAFB bifascicular block. Patient has history of bifascicular block. I talked to the patient's and informed her about the update. Patient has history of ascending aortic aneurysmand had that repaired along with aortic valve in [facility]. His fat pressroom worker is Dr. Huston in [facility]. I think this is most probably due to start of the octreotide drip as patient was in sinus normal rhythm at time ofadmission. Octreotide discontinued. Food And Nutrition Services Assistant consulted. 2D echo ordered. 01/23: Echo states EF 55 to 60%, normal LV systolic function. Trivial MR. Mild diffuse aortic valve calcification. Normal left atrium. Plan: Food And Nutrition Services Assistant will talk to Dr. Chandra regarding assessment for pacemaker 01/24: Patient has hypernatremia and hyperchloremia. IV fluid D5W started. Patient is still has AV block, P waves but rhythm is irregular. Twelve-lead EKGordered. Discussed with the fat pressroom worker. Dr. Ling will talk to Dr. Chandra. 01/25: For now plan is to monitor. No plan for pacemaker as per the fat pressroom worker. monitor worker shows irregular heartbeat , Mobitz type II. [...] or advanced directive. 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 After discussion of benefits/risks procedures [...] Heart rate in 50s.. Discussed with the fat pressroom worker. No chest pain or tightness. Physical exam [...] 78.4 H, Lymph % (Auto) 8.1 L, Taylor % (Auto) 9.6, Eos % (Auto) 1.6, [...] Qty: 0 0RF Patient Comments: PRN PER LONG TERM MAR melatonin 3 mg Tablet 3 mg PO QHS PRN PRN (Reason: Insomnia) Qty: 1 0RF Patient Comments: PRN PER LONG TERM MAR. duloxetine [Cymbalta] 60 mg capsule,delayed release(DR/EC) 60 mg PO DAILY cholecalciferol (vitamin D3) 1,250 mcg (50,000 unit) tablet 1,250 mcg PO MO insulin lispro [Humalog KwikPen Insulin] 100 unit/mL insulin pen See Protocol subcut [facility] Protocol: 6. Sliding Scale Insulin Custom [...] in before D/C Order can be placed): Jail Facility Charges/Coding Visit Charges Inpatient E&M: 09821 Disch Hosp >30min 01/26/23 1256 <Electronically signed by Ryan Tinoco MD> Cosigner Signature (if applicable): CC: Dr. Luis Caldera MD; Dr. Ryan Tinoco MD~ Signed [facility] Work Phone: 1(121) 172-907607-15-2023 Discharge summary Author Ryan Tinoco [facility] January 26, 2023 11:57am Note Date/Time January 26, 2023 7:59 am [facility] Medical Records Department [address] [place] [address] [address] [facility] MR#: [id number] Acct: [id number] Name: RICH[place] ROY Rep #:[id number] : 1945 77 From: Ryan Delgado PCP: Dr. Luis Caldera MD Status :ADM IN Certification of patient admission REQUIRED AT TIME OF ADMISSION. I CERTIFY THAT [facility] SERVICES ARE REQUIRED TO BE GIVEN ON AN IN-PATIENT BASIS BECAUSE OF THE ABOVE NAMED PATIENT'S NEED FOR LONG TERM CARE ON A CONTINUING BASIS FOR THE CONDITION(S) FOR WHICH HE/SHE WAS RECEIVING IN-PATIENT HOSPITAL SERVICES PRIOR TO HIS/HER TRANSFER TO THE [facility]. 01/26/23 1157<Electronically signed by Ryan Tinoco MD> [...] is a 77-year-old gentleman being admitted from [facility] for multiple episodes of syncope and upper [...] the . His medical care is under [facility]. 01/22: Hemoglobin dropped to 8.9. [...] there was 2 dropped heartbeat in EKG. monitor worker shows heart rate slowed down to 48 to 60/min. EKG in the morning about 6 AM today shows sinus rhythm with second- degree Mobitz type II block, RBBB, LAFB bifascicular block. Patient has history of bifascicular block. I talked to the patient's and informed her about the update. Patient has history of ascending aortic aneurysmand had that repaired along with aortic valve in [facility]. His fat pressroom worker is Dr. Huston in [facility]. I think this is most probably due to start of the octreotide drip as patient was in sinus normal rhythm at time ofadmission. Octreotide discontinued. Food And Nutrition Services Assistant consulted. 2D echo ordered. 01/23: Echo states EF 55 to 60%, normal LV systolic function. Trivial MR. Mild diffuse aortic valve calcification. Normal left atrium. Plan: Food And Nutrition Services Assistant will talk to Dr. Chandra regarding assessment for pacemaker 01/24: Patient has hypernatremia and hyperchloremia. IV fluid D5W started. Patient is still has AV block, P waves but rhythm is irregular. Twelve-lead EKGordered. Discussed with the fat pressroom worker. Dr. Ling will talk to Dr. Chandra. 01/25: For now plan is to monitor. No plan for pacemaker as per the fat pressroom worker. monitor worker shows irregular heartbeat , Mobitz type II. [...] or advanced directive. 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 After discussion of benefits/risks procedures [...] Qty: 0 0RF Patient Comments: PRN PER LONG TERM MAR melatonin 3 mg Tablet 3 mg PO QHS PRN PRN (Reason: Insomnia) Qty: 1 0RF Patient Comments: PRN PER LONG TERM MAR. donepezil 10 mg tablet 10 mg [...] in before D/C Order can be placed): Jail Facility (6) Anemia Qualifiers: Anemia type: iron deficiency Iron deficiency anemia type: other iron deficiency Qualified Code(s): D50.8 - Other iron deficiency anemias 01/26/23 1157 <Electronically signed by Ryan Tinoco MD> Cosigner Signature (if applicable): CC: Dr. Luis Caldera MD; Dr. Lizzeth Riggs MD ~ [facility] Work Phone: 1([phone]) 874-169607-14-2023 Progress note Author Lizzeth Riggs [facility] January 25, 2023 4:08pm Note Date/Time January 25, 2023 1:09 pm [facility] Medical Records Department [address] [place] [address] Progress Note - Cardiology 01/25/23 1308 MR#: [id number] Acct: [id number] Name: [place] ROY Rep #:[id number] : 1945 77 From: Rebecca LOZA PA PCP: Dr. Luis Caldera MD Status :ADM IN Location: [place] [id number]- 1 Documented by User: DENIA Wilkinson 01/25/23 [...] Albumin (DAVID) 2.5 L, Albumin/Globulin (DAVID) 1.4, Xjrfz-3-Kafdizkfj DAVID 0.2, Udfxk-4-Ksioodknk DAVID 0.6, Beta-Globulins (DAVID) 0.7, Gamma Globulins [...] 83.4 H, Lymph % (Auto) 5.9 L, Taylor % (Auto) 7.8, Eos % (Auto) 1.0, [...] 83.4 H, Lymph % (Auto) 5.9 L, Taylor % (Auto) 7.8, Eos % (Auto) 1.0, [...] stable hemodynamically. Charges/Coding Visit Charges Inpatient E&M: 21516 Subs Hosp L2 Documented by User: Dr. [...] notes and documentation Patient to follow-up as fat pressroom worker Dr. Chandra with the results of the event monitor. To evaluate for permanent pacemaker implant. 01/25/23 1414 <Electronically signed by eRbecca LOZA> Cosigner Signature (if applicable): 01/25/23 1608 <Electronically signed by Lizzeth Riggs MD> CC: ~ Signed [facility] Work Phone: 1(604) 481-218007-14-2023 Progress note Author Ryan Tinoco [facility] January 25, 2023 2:08pm Note Date/Time January 25, 2023 9:30 am [facility] Medical Records Department [address] [place] [address] Progress Note - Hospitalist 01/25/23 0928 MR#: [id number] Acct: [id number] Name: RICHARD ROY Rep #:[id number] : 1945 77 From: Ryan Delgado PCP: Dr. Luis Caldera MD Status :ADM IN Location: [place] [address] Reason for Visit Reason for Visit: Diagnoses [...] 83.4 H, Lymph % (Auto) 5.9 L, Taylor % (Auto) 7.8, Eos % (Auto) 1.0, [...] Heart rate in 50s.. Discussed with the fat pressroom worker. No chest pain or tightness. Physical exam [...] is a 77-year-old gentleman being admitted from [facility] for multiple episodes of syncope and upper [...] the . His medical care is under [facility]. 01/22: Hemoglobin dropped to 8.9. [...] Albumin (DAVID) 2.5 L, Albumin/Globulin (DAVID) 1.4, Zcxac-4-Jvrsllhly DAVID 0.2, Ldgkr-3-Bufhqbkfi DAVID 0.6, Beta-Globulins (DAVID) 0.7, Gamma Globulins [...] 83.4 H, Lymph % (Auto) 5.9 L, Taylor % (Auto) 7.8, Eos % (Auto) 1.0, [...] there was 2 dropped heartbeat in EKG. monitor worker shows heart rate slowed down to 48 to 60/min. EKG in the morning about 6 AM today shows sinus rhythm with second- degree Mobitz type II block, RBBB, LAFB bifascicular block. Patient has history of bifascicular block. I talked to the patient's and informed her about the update. Patient has history of ascending aortic aneurysmand had that repaired along with aortic valve in [facility]. His fat pressroom worker is Dr. Huston in [facility]. I think this is most probably due to start of the octreotide drip as patient was in sinus normal rhythm at time ofadmission. Octreotide discontinued. Food And Nutrition Services Assistant consulted. 2D echo ordered. 01/23: Echo states EF 55 to 60%, normal LV systolic function. Trivial MR. Mild diffuse aortic valve calcification. Normal left atrium. Plan: Food And Nutrition Services Assistant will talk to Dr. Chandra regarding assessment for pacemaker 01/24: Patient has hypernatremia and hyperchloremia. IV fluid D5W started. Patient is still has AV block, P waves but rhythm is irregular. Twelve-lead EKGordered. Discussed with the fat pressroom worker. Dr. Ling will talk to Dr. Chandra. 01/25: For now plan is to monitor. No plan for pacemaker as per the fat pressroom worker. monitor worker shows irregular heartbeat , Mobitz type II. [...] or advanced directive. 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 After discussion of benefits/risks procedures [...] systolic function Charges/Coding Visit Charges Inpatient E&M: 71819 Subs Hosp L2 01/25/23 1408 <Electronically signed by Ryan Tinoco MD> Cosigner Signature (if applicable): CC: ~ Signed [facility] Work Phone: 1(407) 643-219807-13-2023 Progress note Author Karen Aly [facility] January 24, 2023 8:23pm Note Date/Time January 24, 2023 8:23 pm [facility] Medical Records Department [address] [place] [address] Progress Note - Hospitalist 01/24/232021 MR#: [id number] Acct: [id number] Name: [place] ROY Rep #:[id number] : 1945 77 From: Karen Aly MD PCP: Dr. Luis Caldera MD Status :ADM IN Location: [place] [id number]- 1 Hospitalist Note Recurrent type II AV block which from notes has been intermittent. He is asymptomatic. Cardiology following and made aware also by RN that it is recurrent. 01/24/232022 <Electronically signed by Karen Aly MD> Cosigner Signature (if applicable): CC: ~ Signed [facility] Work Phone: 1(952) 738-301707-13-2023 Progress note Author Liu Hackett [facility] January 24, 2023 5:07pm Note Date/Time January 24, 2023 5:07 pm [facility] Medical Records Department [address] [place] [address] Progress Note - GI 01/24/23 1703 MR#: [id number] Acct: [id number] Name: RICHARD ROY Rep #:[id number] : 1945 77 From: Liu Hackett DO PCP: Dr. Luis Caldera MD Status :ADM IN Location: [place] [address] Subjective Subjective Patient laying in bed with [...] 82.8 H, Lymph % (Auto) 5.3 L, Taylor % (Auto) 8.9, Eos % (Auto) 1.3, [...] ensure healing. Charges/Coding Visit Charges Inpatient E&M: 29109 Subs Hosp L3 01/24/23 1707 <Electronically signed by Liu Friend DO> Cosigner Signature (if applicable): CC: ~ Signed [facility] Work Phone: 1(633) 975-246507-13-2023 Progress note [facility] January 24, 2023 4:25pm Note Date/Time January 24, 2023 1:41 pm [facility] Medical Records Department [address] [place] [address] Progress Note - Cardiology 01/24/23 1338 MR#: [id number] Acct: [id number] Name: RICHARD ROY Rep #:[id number] : 1945 77 From: Rebecca LOZA PCP: Dr. Luis Caldera MD Status :[facility]M [facility] Documented by User: DENIA Wilkinson [...] 82.8 H, Lymph % (Auto) 5.3 L, Taylor % (Auto) 8.9, Eos % (Auto) 1.3, [...] 82.8 H, Lymph % (Auto) 5.3 L, Taylor % (Auto) 8.9, Eos % (Auto) 1.3, [...] by GI. Charges/Coding Visit Charges Inpatient E&M: 83837 Subs Hosp L2 Documented by User: Dr. [...] by Lizzeth Riggs MD> CC: ~ Signed [facility] Work Phone: 1([phone]) 577-122007-13-2023 Miscellaneous Notes* Telephone Encounter - Tamika Grijalva [...] Patient's calling to say patient was at [facility] for [facility] on [facility]/04. [facility] on 01/21 due to episode of [...] Watsonbreonna. Vannessa Jorge, RN documented in this encounterRegency [facility]07-13-2023 Progress note Author Ryan Tinoco [facility] January 24, 2023 1:11pm Note Date/Time January 24, 2023 8:05 am [facility] Medical Records Department [address] [place] [address] Progress Note - Hospitalist 01/24/23 0758 MR#: [id number] Acct: [id number] Name: RICHARD ROY Rep #:[id number] : [...] Antibody < 0.2, Sm (Martinez) Antibody <0.2, PERFECT BINDER SETTER Antibody <0.2, Scl-70 Scleroderma Ab <0.2, Double [...] 82.8 H, Lymph % (Auto) 5.3 L, Taylor % (Auto) 8.9, Eos % (Auto) 1.3, [...] waves. Twelve-lead EKG ordered.. Discussed with the fat pressroom worker. No chest pain or tightness. General: Awake [...] is a 77-year-old gentleman being admitted from [facility] for multiple episodes of syncope and upper [...] the . His medical care is under [facility]. 01/22: Hemoglobin dropped to 8.9. [...] there was 2 dropped heartbeat in EKG. monitor worker shows heart rate slowed down to 48 to 60/min. EKG in the morning about 6 AM today shows sinus rhythm with second- degree Mobitz type II block, RBBB, LAFB bifascicular block. Patient has history of bifascicular block. I talked to the patient's and informed her about the update. Patient has history of ascending aortic aneurysmand had that repaired along with aortic valve in [facility]. His fat pressroom worker is Dr. Huston in [facility]. I think this is most probably due to start of the octreotide drip as patient was in sinus normal rhythm at time ofadmission. Octreotide discontinued. Food And Nutrition Services Assistant consulted. 2D echo ordered. 01/23: Echo states EF 55 to 60%, normal LV systolic function. Trivial MR. Mild diffuse aortic valve calcification. Normal left atrium. Plan: Food And Nutrition Services Assistant will talk to Dr. Chandra regarding assessment for pacemaker 01/24: Patient has hypernatremia and hyperchloremia. IV fluid D5W started. Patient is still has AV block, P waves but rhythm is irregular. Twelve-lead EKGordered. Discussed with the fat pressroom worker. Dr. Ling will talk to Dr. Chandra. [...] or advanced directive. 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 After discussion of benefits/risks procedures [...] systolic function Charges/Coding Visit Charges Inpatient E&M: 88562 Subs Hosp L3 01/24/23 1311 <Electronically signed by Ryan Tinoco MD> Cosigner Signature (if applicable): CC: ~ Signed [facility] Work Phone: [phone]) 443-391407-12-2023 Progress note Author Lizzeth Riggs [facility] January 23, 2023 2:45pm Note Date/Time January 23, 2023 10:0 0am [facility] Medical Records Department [address] [place] [address] Progress Note - Cardiology 01/23/23 0946 MR#: [id number] Acct: [id number] Name: RICHARD ROY Rep #:[id number] : [...] 85.3 H, Lymph % (Auto) 4.8 L, Taylor % (Auto) 7.1, Eos % (Auto) 0.7, [...] 85.3 H, Lymph % (Auto) 4.8 L, Taylor % (Auto) 7.1, Eos % (Auto) 0.7, [...] appears stable. Charges/Coding Visit Charges Inpatient E&M: 18428 Subs Hosp L2 01/23/23 1000 <Electronically signed by Rebecca LOZA> Cosigner Signature (if applicable): 01/23/23 1445 <Electronically signed by Lizzeth Riggs MD> CC: ~ Signed [facility] Work Phone: 1(394) 343-780807-12-[address] [facility] 01-23-[address] [facility]07-12-2023 Progress note Author Ryan Tinoco [facility] January 23, 2023 9:01am Note Date/Time January 23, 2023 9:01 am [facility] Medical Records Department [address] [place] [address] Progress Note - Hospitalist 01/23/23 0852 MR#: [id number] Acct: [id number] Name: RICHARD ROY Rep #:[id number] : [...] 85.3 H, Lymph % (Auto) 4.8 L, Taylor % (Auto) 7.1, Eos % (Auto) 0.7, [...] every third beat dropped. Discussed with the fat pressroom worker. No chest pain or tightness. General: Oriented [...] is a 77-year-old gentleman being admitted from [facility] for multiple episodes of syncope and upper [...] the . His medical care is under [facility]. 01/22: Hemoglobin dropped to 8.9. [...] there was 2 dropped heartbeat in EKG. monitor worker shows heart rate slowed down to 48 to 60/min. EKG in the morning about 6 AM today shows sinus rhythm with second- degree Mobitz type II block, RBBB, LAFB bifascicular block. Patient has history of bifascicular block. I talked to the patient's and informed her about the update. Patient has history of ascending aortic aneurysmand had that repaired along with aortic valve in [facility]. His fat pressroom worker is Dr. Huston in [facility]. I think this is most probably due to start of the octreotide drip as patient was in sinus normal rhythm at time ofadmission. Octreotide discontinued. Food And Nutrition Services Assistant consulted. 2D echo ordered. 01/23: Echo states EF 55 to 60%, normal LV systolic function. Trivial MR. Mild diffuse aortic valve calcification. Normal left atrium. Plan: Food And Nutrition Services Assistant will talk to Dr. Chandra regarding assessment [...] or advanced directive. 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 After discussion of benefits/risks procedures [...] organ systems), coordination with cardiology and GI configuration consultant, review of labs and imaging is 50 minutes. Visit Charges Inpatient E&M: 00216 Subs Hosp L3 01/23/23 0901 <Electronically signed by Ryan Tinoco MD> Cosigner Signature (if applicable): CC: ~ Signed [facility] Work Phone: [phone]) 701-284107-11-2023 Consult note Author Rebecca Leon [facility] January 22, 2023 4:28pm Note Date/Time January 22, 2023 4:07 pm [facility] Medical Records Department [address] [place] [address] Consultation - Cardiology 01/22/23 1605 MR#: [id number] Acct: [id number] Name: RICHARD ROY Rep #:[id number] : [...] hospital stay he was discharged to a shelter facility for rehab. He presented back to the emergency room yesterday for syncope. The nurses at [facility] had noted that he was [...] last received his metoprolol while in the residential on 01/20/2023. I did speak with , [...] were adjusted at his last hospital stay. [facility] Medical History (Updated 01/22/23 @ 16:25 by [...] Hx of abdominal surgery Social History housing: residential current occupational status: retired Smoking Status: Never [...] Charges/Coding Visit Charges Office Visits / Consults: 21607 IP Consult L3 Objective Data Vital Signs: [...] RDW Coeff of Nathaniel 15.5 H, Plt [id number], MPV 10.1, Immature Gran % (Auto) 3.300 H, Neut % (Auto) 81.9 H, Lymph % (Auto) 5.9 L, Taylor % (Auto) 8.0, Eos % (Auto) 0.7, [...] 81.9 H, Lymph % (Auto) 5.9 L, Taylor % (Auto) 8.0, Eos % (Auto) 0.7,Baso [...] Caldera MD; Dr. Lizzeth Riggs MD~ Signed [facility] Work Phone: 1([phone]) 210-753207-11-2023 Progress note Author Ryan Tinoco [facility] January 22, 2023 8:38am Note Date/Time January 22, 2023 8:22 am [facility] Medical Records Department [address] [place] [address] Progress Note - Hospitalist 01/22/23818 MR#: [id number] Acct: [id number] Name: RICHARD ROY Rep #:[id number] : 1945 77 From: Ryan Delgado PCP: Dr. Luis Caldera MD Status :ADM IN Location: ICU [place] [address] 2-1 Reason for Visit Reason for Visit: [...] 87.8 H, Lymph % (Auto) 7.5 L, Taylor % (Auto) 2.4, Eos % (Auto) 0.0, [...] Clarity Clear, Urine pH 5.0, Ur Specific [place] 1.020, Urine Protein 15 H, Urine Glucose [...] RDW Coeff of Nathaniel 15.5 H, Plt [id number], MPV 10.1, Immature Gran % (Auto) 3.300 H, Neut % (Auto) 81.9 H, Lymph % (Auto) 5.9 L, Taylor % (Auto) 8.0, Eos % (Auto) 0.7, [...] havingirregular heartbeat after midnight, initially A-fib on phototypesetting equipment monitor. After that about 5 AM patient started [...] is a 77-year-old gentleman being admitted from [facility] for multiple episodes of syncope and upper [...] the . His medical care is under [facility]. 01/22: Hemoglobin dropped to 8.9. [...] there was 2 dropped heartbeat in EKG. monitor worker shows heart rate slowed down to 48 to 60/min. EKG in the morning about 6 AM today shows sinus rhythm with second- degree Mobitz type II block, RBBB, LAFB bifascicular block. Patient has history of bifascicular block. I talked to the patient's and informed her about the update. Patient has history of ascending aortic aneurysmand had that repaired along with aortic valve in [facility]. His fat pressroom worker is Dr. Huston in [facility]. I think this is most probably due to start of the octreotide drip as patient was in sinus normal rhythm at time ofadmission. Octreotide discontinued. Food And Nutrition Services Assistant consulted. 2D echo ordered. 3. Essential hypertension [...] or advanced directive. 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 After discussion of benefits/risks procedures involved with full code, DNR CC arrest and DNR CC, the patient and his opted for full code. Patient does want artificial life support including intubation, tube feed, ventilator and/chest compression, central venous catheter, vasopressor and DC shock if needed Charges/Coding Visit Charges Inpatient E&M: [address] [facility] Hosp 01/22/23 0838 <Electronically signed by Ryan Tinoco MD> Cosigner Signature (if applicable): CC: ~ Signed [facility] Work Phone: 1(246) 367-987607-10-2023 Consult note Author Liu Hackett [facility] January 21, 2023 7:07pm Note Date/Time January 21, 2023 7:04 pm [facility] Medical Records Department [address] [place] [address] Consultation - GI 01/21/23 1902 MR#: [id number] Acct: [id number] Name: RICHARD ROY Rep #:[id number] : 1945 77 From: Liu Hackett DO PCP: Dr. Luis Caldera MD Status :ADM IN Location: ICU CVICU20 2-1 HPI Consult Data Date of Consult: 01/21/23 HPI Narrative Reason for Consultation: GI bleed HPI Narrative: RICHARD ROY, is a 77 M who presents with melena goals from residential. He is on warfarin for history of DVT and atrial fibrillation. [facility]. He was admitted between 01/05 to 01/08/23 for confusion and generalized weakness, stroke was ruled out and was sent to residential there. Started getting confused within the past [...] down to 10.9 from 13.1 on discharge. [facility] Medical History Amputation of right great toe [...] Hx of abdominal surgery Social History housing: residential current occupational status: retired Smoking Status: Never [...] 87.8 H, Lymph % (Auto) 7.5 L, Taylor % (Auto) 2.4, Eos % (Auto) 0.0, [...] Clarity Clear, Urine pH 5.0, Ur Specific [place] 1.020, Urine Protein 15 H, Urine Glucose [...] 6 hours. Charges/Coding Visit Charges Inpatient E&M: 02668 Init Hosp L3 01/21/231906 <Electronically signed by Liu Friend DO> Cosigner Signature (if applicable): CC: Dr. Luis Caldera MD~ Signed [facility] Work Phone: 1(863) 371-237507-10-2023 Discharge summary Author Dandy Sauer [facility] January 21, 2023 5:25pm Note Date/Time January 21, 2023 9:06 am [facility] Medical Records Department [address] [place] [address] Emergency Department Summary 01/21/23 MR#: [id number] Acct: [id number] Name: RICHARD ROY Rep #:[id number] : 1945 77 From: Dandy Sauer MD PCP: Dr. Luis Caldera MD Status :ADM IN Location: ICU CVICU20 2-1 HPI History of Present Illness Chief Complaint: Syncope Informant: spouse/S.O., EMS and SNF Narrative Narrative: Patient sent from [facility] where he has been for several weeks [...] pain, but he denies it right now. [facility] Medical History Amputation of right great toe [...] 09:[address] Dandy Sauer MD) housing: residential current occupational status: retired Smoking Status: Never [...] place including the state. Downgoing toes bilaterally [place] Coma Scale: document GCS findings To Voice [...] 87.8 H Lymph % (Auto) 7.5 L Taylor % (Auto) 2.4 Eos % (Auto) 0.0 [...] Management Discussion w/another healthcare provider: Hospitalist and Corduroy Cutting Supervisor (JOHN) Critical Care Time Critical Care Time: Yes Critical care time (excluding procedures): 30-74 minutes (33 min), Including time spent:, Discussing w/Patient &/or Family/Site Project Manager, Discussing w/Consultants, Arranging Admission or Transfer and Performing Direct Patient Care at Bedside Discharge Plan Dx/Rx/DC Orders Clinical Impression: Acute encephalopathy, Syncope, Supratherapeutic INR, ABLA (acute blood loss anemia), Upper gastrointestinal bleeding, Warfarin-induced coagulopathy Disposition Disposition: [facility] Capacity Capacity Assessment Tool Can the [...] your Primary Care Provider. Call [facility] ([phone]) or report to the closest Emergency Room. Call 911 if necessary. 01/21/23 1725 <Electronically signed by Dandy Sauer MD> Cosigner Signature (if applicable): CC: Dr. Luis Caldera MD ~ Signed [facility] Work Phone: [phone]) 446-440107-10-2023 History and physical note Author Ryan Tinooc [facility] January 21, 2023 12:24pm Note Date/Time January 21, 2023 11:5 8am [facility] Medical Records Department [address] [place] [address] H&P Exam - Hospitalist 01/21/23 1156 MR#: [id number] Acct: [id number] Name: RICHARD ROY Rep #:[id number] : 1945 77 From: Ryan Delgado PCP: Dr. Luis Caldera MD Status :ADM IN Location: ICU CVICU20 2-1 HPI - General General Date of Admission: 01/21/23 Date of Service: 01/21/23 Chief Complaint: Patient was unresponsive in the morning. Had large black tarrystool. HPI Narrative RICHARD ROY, is a 77 M gentleman was brought from [facility] to residential for syncopal episodes and black tarry stool. Prior to that he was admitted between 01/05 to 01/08/23 for confusion and generalized weakness, stroke was ruledout and was sent to residential there. Patient is not a good historian. As per the nursing report, patient had multiple short syncopal episodes in the morning after he had a large black tarry stool. Patient had been having dark stool for last couple days in residential. Patient does not remember himself from dementia/depression. [...] further admitted in in the context of [facility] Medical History Amputation of right great toe [...] Hx of abdominal surgery Social History housing: residential current occupational status: retired Smoking Status: Never [...] 87.8 H, Lymph % (Auto) 7.5 L, Taylor % (Auto) 2.4, Eos % (Auto) 0.0, [...] Clarity Clear, Urine pH 5.0, Ur Specific [place] 1.020, Urine Protein 15 H, Urine Glucose [...] is a 77-year-old gentleman being admitted from [facility] for multiple episodes of syncope and upper [...] the . His medical care is under [facility]. 2 Syncopal episode most likely [...] or advanced directive. 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 After discussion of benefits/risks procedures involved with full code, DNR CC arrest and DNR CC, the patient and his opted for full code. Patient does want artificial life support including intubation, tube feed, ventilator and/chest compression, central venous catheter, vasopressor and DC shock if needed Total time spent in [id number] encounter in discussion of advanced directive 17 [...] 87.8 H, Lymph % (Auto) 7.5 L, Taylor % (Auto) 2.4, Eos % (Auto) 0.0, [...] Clarity Clear, Urine pH 5.0, Ur Specific [place] 1.020, Urine Protein 15 H, Urine Glucose (UA) 100 H, Urine Ketones 15 H, Urine Occult Blood Negative, Urine Nitrite Negative, Urine Bilirubin 1 H, Urine Urobilinogen Normal, Ur Leukocyte Esterase Negative, Urine RBC 0 SEEN, Urine WBC 0-5 SEEN, Ur Squamous Epith Cells 0-5 SEEN, Urine Bacteria 0 SEEN, Urine Mucus 0 SEEN Charges/Coding Visit Charges Inpatient E&M: 78735 Init Hosp L3 Procedures Hospitalists Procedures: 08625 Advncd Care Plan 30 Min 01/21/23 1223 [...] applicable): cc: Dr. Luis Caldera MD; Dr. yRan Tinoco MD ~* Signed [facility] Work Phone: 1([phone]) 795-382206-23-2023 Miscellaneous Notes* Telephone Encounter - Amada Cohn [...] again recommend ER evaluation. documented in this encounterRegency [facility]06-23-2023 Miscellaneous Notes* Telephone Encounter - Tamika Grijalva [...] 01/04. Vannessa Jorge RN documented in this encounterRegency Hospital [facility]06-22-2023 History of Present illness Narrative* Justina Escoto, [...] included: Therapeutic exercise, Neuromuscular re-education, Therapeutic activities, Self-longterm management, and Gait training. Goals for Episode [...] PARTIALLY MET, improved 8 to 9 reps [place] in home exercise program including cardiovascular exercise. [...] with an (*). Patient education as noted. Self-Snf Management: 1: *strongly enouraged f/u with physician [...] 5 Justina Escoto PT documented in this encounterRegency Hospital [facility]06-19-2023 History of Present illness Narrative* Justina Escoto [...] Treatment Time Minutes (timed/untimed): 42 Ira Ramos, PROVIDER RELATIONS REPRESENTATIVE Justina Escoto PT documented in this encounterRegency Hospital [facility]06-15-2023 History of Present illness Narrative* Justina Escoto [...] Treatment Time Minutes (timed/untimed): 40 Ira Ramos, PROVIDER RELATIONS REPRESENTATIVE Justina Escoto, PT documented in this encounterRegency Hospital [facility]06-12-2023 History of Present illness Narrative* Justina Escoto, [...] was facilitated with verbal and visual cueing. Self-Snf Management: 1: *strongly encouraged pt. to be [...] 40 Justina Escoto PT documented in this encounterRegency Hospital [facility]06-05-2023 History of Present illness Narrative* Justina Escoto [...] of gait belt. Patient education as noted. Self-Snf Management: 1: *discussed automatic lights 2: *discussed [...] 40 Justina Escoto PT documented in this encounterRegency Hospital [facility]06-02-2023 History of Present illness Narrative* Justina Escoto [...] 40 Justina Escoto PT documented in this encounterRegency Hospital [facility]05-31-2023 History of Present illness Narrative* Justina Escoto [...] 40 Justina Escoto PT documented in this encounterRegency Hospital [facility] West05-09-2023 Miscellaneous Notes* Telephone Encounter - GABI Link [...] to the pharmacy. Please call patient at: [phone]. Nola Lockhart documented in this encounterRegency Hospital [facility] West05-08-2023 Miscellaneous Notes* Telephone Encounter - Tania Heller [...] and result): 09/24/2022 2.5 documented in this encounterRegency Hospital [facility] West04-10-2023 History of Present illness Narrative* Zachary Obregon [...] polyneuropathy associated with type 2 diabetes mellitus ([facility]) Plan: Patient was seen and evaluated. Nails [...] Patient, Diabetic Foot Care documented in this encounterRegency Hospital [facility] West04-10-2023 Instructions* Patient Instructions* Zachary Obregon - 10/22/2022 [...] (or decreased sensation in your feet) a machinery engineer should always cut your toenails. Be Careful [...] Go to your health care provider or machinery engineer to treat these conditions. documented in this encounterRegency Hospital [facility] West03-14-2023 Miscellaneous Notes* Telephone Encounter - Rebecca Esteban [...] Information or narrative: no documented in this encounterRegency Hospital [facility] West02-24-2023 Miscellaneous Notes* Telephone Encounter - Suzanne Connelly RN - 09/07/2022 1:11 PM EST Call to patient. Provided number to schedule- [phone]. Offered to transfer patient to schedulebut patient declined to schedule stating he could call later. PAOLA Potter, RN September 07, 2022 1:11 PM * Telephone Encounter - Jojo Kaur MD - 09/07/2022 11:39 AM EST Suzanne please let patient know how to proceed with driving evaluation I already put the order in computer documented in this encounterRegency Hospital [facility]02-24-2023 History of Present illness Narrative* Jojo Kaur [...] evaluation of folllow up after hospitalization in [facility]. he was admitted because of [...] others Since covid hit they [facility] and was staying in the house by [...] Benign-Dr. 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 ([facility]) 05/25/2018 History of transfusion Hyperlipidemia LDL goal < 100 04/01/2012 NSTEMI (non-ST elevated myocardial infarction) ([facility]) Pulmonary embolus, right ([facility]) 09/25/2013 Status post aortic valve repair 2005 Thoracic aneurysm without mention of rupture Type 2 diabetes mellitus with stage 3 chronic kidney disease, with long-term current use of insulin([facility]) 06/20/2016 Vitamin D deficiency 01/03/2022 PSH: PAST SURGICAL HISTORY Procedure Laterality Date ABDOMINAL SURGERY HX AMPUTATION METATARSAL+TOE,SINGLE Right 05/25/2018 with delayed closure on 05/28/18. Dr. [facility] 10/10/2021 repeat in 3 years [...] one time a week. blood sugar diagnostic (Critical MediaUCH ULTRA TEST) test strip Test blood sugar(s) [...] gait ,unsteady Cannot tandem Jojo Kaur M.D. [facility] [place] Department of Neurology Total time in minutes [...] lights on at night. documented in this encounterRegency Hospital [facility] West02-14-2023 Miscellaneous Notes* Telephone Encounter - Tamika Grijalva [...] no Tania Heller LPN documented in this encounterRegency Hospital [facility] West02-02-2023 Miscellaneous Notes* Telephone Encounter - Grecia Bustillo [...] notify patient. Grecia Bustillo documented in this encounterRegency Hospital [facility] West01-31-2023 Miscellaneous Notes* Telephone Encounter - Tamika Grijalva [...] Information or narrative: no documented in this encounterRegency Hospital [facility] West01-26-2023 History of Present illness Narrative* Abdulaziz Caldera [...] 12 months ago. Going to schedule appointment [facility]. 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 Asymtpomatic still on medical management. Has completed his home PT/OT. [facility] and [facility] test at [facility] were negative/normal. Has follow up with Dr. Huston on 12/03. questioning if they should be seen sooner. BP well controlled with current regimen <130/80. BPH: With use of flomax, patient is getting up once at night to urinate. Has weak stream, but denies straining, incomplete emptying, dysuria, hematuria, incontinence. Followed up with ENT in [place] for chronic frontal sinusitis on CT/MRI going back to February. Told this did not require treatment. F/u PRN. Denies sinus pressure/pain/congestion. Past medical history, appointments, medications, allergies reviewed. Previous Medical History PAST MEDICAL HISTORY Diagnosis Date BPH (benign prostatic hyperplasia) Cholelithiasis 09/25/2013 Chronic neutrophilia Benign-Dr. 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 Dr. Obregon at [facility] 10/10/2021 repeat in 3 years [...] by mouth once daily. blood sugar diagnostic ([email or web address] ULTRA TEST) test strip Test blood sugar(s) [...] Abs Lymph 1.00 - 4.00 k/uL 1.81 Taylor% % 6.9 Abs Taylor <0.87 k/uL 0.86 Eosin% % 3.1 Abs [...] arise. - Discussed diabetic education issues of penitentiary diabetic complications, hypoglycemic symptoms, hyperglycemic symptoms, diet, [...] reigmen. Abdulaziz Caldera MD documented in this encounterRegency Hospital [facility]01-23-2023 Miscellaneous Notes* Telephone Encounter - Tamika Grijalva [...] pt. Mila Castro LPN documented in this encounterRegency Hospital [facility] West01-23-2023 History of Present illness Narrative* Zachary Jaimes [...] or electronic medical record. documented in this encounterRegency Hospital [facility] West01-17-2023 Miscellaneous Notes* Telephone Encounter - Melba Jones [...] 2022. Rebecca Esteban LPN documented in this encounterRegency Hospital [facility] West01-13-2023 Miscellaneous Notes* Telephone Encounter - Meghana Burgess - 07/27/2022 9:55 AM EST [employer] message not read as of 07/27/2022. Called and spoke with patient. Appt rescheduled to 09/07/2022 at 11:00 AM Meghana Burgess * Telephone Encounter - Meghana Burgess - 07/05/2022 4:08 PM EST Due to change in provider's schedule, appt on 08/21/2022 needs rescheduled. Patient notified via [employer] message on 07/05/2022. Meghana Burgess documented in this encounterRegency Hospital [facility] West01-12-2023 Miscellaneous Notes* Telephone Encounter - Abdulaziz Caldera MD - 07/26/2022 3:09 PM EST Thanks. * Telephone Encounter - Ann Castillo RN - 07/26/2022 3:04 PM EST Darlyn, a nurse with [facility] calling to state she has discharged pt from shelter today. Pt is doing really well. No call back needed. Thank you. documented in this encounterRegency Hospital [facility]01-11-2023 Miscellaneous Notes* Telephone Encounter - Suzanne Lino RN - 07/25/2022 1:42 PM EST Last Office Visit: 07/12/2022 Future Office Visit: 08/09/2022 Requested Prescriptions Pending Prescriptions Disp Refills amLODIPine (NORVASC) 2.5 mg tablet 30 tablet 5 Sig: Take 1 tablet by mouth once daily. Date of Last Labs: 03/02/2022 documented in this encounterRegency Hospital [facility] West01-03-2023 Miscellaneous Notes* Telephone Encounter - Abdulaziz Caldera MD - 07/17/2022 12:58 PM EST Reviewed and agree. * Telephone Encounter - Halima Diaz RN - 07/17/2022 12:51 PM EST Maverick PT calling from [facility] to report plan of care for patient and PT will visit patient 2 times a week for 3 weeks. PT will work with patient on functional mobility training. Halima Diaz RN documented in this encounterRegency Hospital [facility] West01-03-2023 Miscellaneous Notes* Telephone Encounter - Abdulaziz Caldera MD - 07/17/2022 11:18 AM EST Reviewed. * Telephone Encounter - Eva Schmid LPN - 07/17/2022 11:12 AM EST Barbi from [facility] calling with OT plan of care, one time visit only, patient denies any further OT needs. No call back needed. documented in this encounterRegency Hospital [facility] West12-30-2022 Miscellaneous Notes* Telephone Encounter - Ewa Andino Ma - 07/13/2022 11:30 AM EST Left detailed message on confidential line Ewa Andino Ma * Telephone Encounter - Abdulaziz Caldera MD - 07/13/2022 11:01 AM EST agree * Telephone Encounter - Ann Castillo RN - 07/13/2022 10:00 AM EST Chiki, a nurse with [facility] calling with [facility] Plan of Care for patient: Patient will be seen 1 time per week for 4 weeks for BP monitoring. No call back needed if provider agreeable. Thank you. documented in this encounterRegency Hospital [facility] West12-29-2022 Miscellaneous Notes* Telephone Encounter - Ewa Andino Ma - 07/12/2022 10:53 AM EST Karly was notified Ewa Andino Ma * Telephone Encounter - Abdulaziz Caldera MD - 07/12/2022 10:47 AM EST Agree and will follow * Telephone Encounter - Marcella Alvarez RN - 07/12/2022 10:07 AM EST Karly with [facility] called and reports Pt was discharged yesterday and they received a referral for PT/OT/SN. They are going to do their start of care tomorrow, and she was asking if the provider would be willing to follow. documented in this encounterRegency Hospital [facility] West12-26-2022 Miscellaneous Notes* Telephone Encounter - Suzanne Lino RN - 07/09/2022 11:46 AM EST Last Office Visit: 04/16/2022 Future Office Visit: 09/17/2022 Requested Prescriptions Pending Prescriptions Disp Refills dulaglutide (TRULICITY) 1.5 mg/0.5 mL pen injector 12 Each 3 Sig: Inject 1.5 mg subcutaneously one time a week. Inject once per week. Discard Pen After Date of Last Labs: 03/02/2022 documented in this encounterRegency Hospital [facility] West12-12-2022 Miscellaneous Notes* Telephone Encounter - Tania Heller [...] patient. Tania Heller LPN documented in this encounterRegency Hospital [facility] West11-02-2022 Miscellaneous Notes* Telephone Encounter - Mila Castro [...] you. Mila Castro LPN documented in this [facility]10-04-2022 History of Present illness [...] evaluation of folllow up after hospitalization in [facility]. he was admitted because of [...] others Since covid hit [facility] and was staying in the house by [...] delayed closure on 05/28/18. Dr. [facility]regon [facility] 10/10/2021 repeat in 3 years [...] week. Discard Pen After blood sugar diagnostic (Critical MediaUCH ULTRA TEST) test strip Test blood sugar(s) [...] gait ,unsteady Cannot tandem Jojo Kaur M.D. [facility] [place] Department of Neurology Total time in minutes [...] lights on at night. documented in this encounterRegency Hospital [facility] West10-04-2022 Miscellaneous Notes* Telephone Encounter - Abdulaziz Caldera MD - 04/17/2022 11:24 AM EDT Reviewed. * Telephone Encounter - MERYL Zamudio - 04/17/2022 11:03 AM EDT Behavioral Health Social Work Progress Note Patient identified for [facility] from: PCP Reason for referral: [facility] Resources: Psychology - talk therapy [facility] encounter type: Telephone Encounter Attempts to Outreach: 1 attempt Referral made: Psychology - External Psychology-External referral type: Therapy Reason for external referral: Wait times at [facility] too long Final Disposition: Resources given Patient Discharged?: Yes Patient reported that caregiver was able to meet their needs today?: Yes SW placed a phone call to patient at the request of the PCP. Pt reported he is looking for talk therapy referrals at this time. SW provided the following referrals via phone: [facility] [address], [facility] [address] *counseling [address] [address] *counseling [facility] [address] [place] [address] *counseling [facility] [address] [place] [address] FEDERICO Zamudio April 17, 2022 documented in this encounterRegency Hospital [facility] West10-03-2022 History of Present illness Narrative* Abdulaziz Caldera [...] delayed closure on 05/28/18. Dr. [facility]regon [facility] 10/10/2021 repeat in 3 years [...] week. Discard Pen After blood sugar diagnostic ([email or web address] ULTRA TEST) test strip Test blood sugar(s) [...] Abs Lymph 1.00 - 4.00 k/uL 1.81 Taylor% % 6.9 Abs Taylor <0.87 k/uL 0.86 Eosin% % 3.1 Abs [...] arise. - Discussed diabetic education issues of director long term care diabetic complications, hypoglycemic symptoms, hyperglycemic symptoms, diet, [...] regimen. Abdulaziz Caldera MD documented in this encounterRegency Hospital [facility]10-03-2022 Evaluation note* Diagnosis Type 2 diabetes mellitus [...] tract symptoms (LUTS) documented in this encounter [facility]09-23-2022 History of Present illness Narrative* Roselia Madrigal, MARYLU.SLEEP TECHNOLOGIST - 04/06/2022 9:40 AM EDT 04/06/2022 Patient [...] Benign-Dr. 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 FOR CHOLESTEROL. blood sugar diagnostic ([email or web address] ULTRA TEST) test strip Test blood sugar(s) [...] which included preparing to see the patient, [id number] patient care, completing clinical documentation, obtaining and/or reviewing separately obtained history, performing a medically appropriate examination, and counseling and educating the patient/family/caregiver. documented in this encounterRegency Hospital [facility]09-21-2022 Miscellaneous Notes* Telephone Encounter - Valencia Pascual [...] EDT ----- Please forward INR to doctor orthotic practitioner Roselia Madrigal APRN.CNP documented in this encounterRegency Hospital [facility]09-16-2022 History of Present illness Narrative* Zachary Obregon [...] polyneuropathy associated with type 2 diabetes mellitus ([facility]) Plan: Patient was seen and evaluated. Nails [...] Care Merlene Martinez LPN documented in this encounterRegency Hospital [facility] West09-16-2022 Instructions* Patient Instructions* Zachary Obregon - 03/30/2022 [...] (or decreased sensation in your feet) a machinery engineer should always cut your toenails. Be Careful [...] Go to your health care provider or machinery engineer to treat these conditions. documented in this encounterRegency Hospital [facility] West09-09-2022 History of Present illness Narrative* Rosa Elena [...] 01/12/22 through 03/15/22 Goals updated on 03/23/2022. [place] in home exercise program. (Met) Patient will [...] Rosa Elena Poon PT documented in this encounterRegency Hospital [facility] West09-08-2022 Miscellaneous Notes* Telephone Encounter - Maggy Ibarra Pss - 03/22/2022 1:49 PM EDT Pharmacy verified in [facility] Patient has been identified by name and [...] advise. Maggy Ibarra Pss documented in this encounterRegency Hospital [facility] West09-02-2022 History of Present illness Narrative* Rosa Elena [...] 40 ALISIA Whiting PT documented in this encounterRegency Hospital [facility] West08-29-2022 History of Present illness Narrative* Rosa Elena [...] Treatment Time Minutes (timed/untimed): 41 Karen Weber, PROVIDER RELATIONS REPRESENTATIVE Rosa Elena Poon PT documented in this encounterRegency Hospital [facility] West08-26-2022 Miscellaneous Notes* Addendum Note - Rosa Elena Poon PT - 03/09/2022 1:18 PM EDTAddended by: ROSA ELENA POON on: 03/09/2022 01:18 PM Modules accepted: Orders documented in this encounterRegency Hospital [facility] West08-26-2022 History of Present illness Narrative* Rosa Elena [...] 01/12/22 through 03/15/22 Goals updated on 03/09/2022. [place] in home exercise program. (Met) Patient will [...] Patient to be seen for Therapeutic exercise (59554);Neuromuscular re-education (73160);Gait Training (26817);Patient/Family/Caregiver Education PLAN FOR NEXT VISIT: Add bridging [...] Rosa Elena Poon PT documented in this encounterRegency Hospital [facility] West08-24-2022 Miscellaneous Notes* Telephone Encounter - Amada Cohn [...] testing Madison Ma Cma documented in this encounterRegency Hospital [facility] West08-24-2022 Instructions* Patient Instructions* Abdulaziz Caldera MD - 03/07/2022 11:45 AM EDT Please take 2,000 units of vitamin D daily over the counter. documented in this encounterRegency Hospital [facility] West08-24-2022 History of Present illness Narrative* Abdulaziz Caldera MD - 03/07/2022 11:19 AM EDT Chief Complaint Patient presents with: 6 Month Exam ER F/U HPI Richard Roy is a 76 year old male who presents here today for ER Follow Up.. [facility] for complaint of [...] amputation of first toe of right foot ([facility]) 05/25/2018 History of transfusion Hyperlipidemia LDL goal < 100 04/01/2012 Pulmonary embolus, right ([facility]) 09/25/2013 Status post aortic valve repair 2004 Thoracic aneurysm without mention of rupture Type 2 diabetes mellitus with stage 3 chronic kidney disease, with long-term current use of insulin([facility]) 06/20/2016 Vitamin D deficiency 01/03/2022 Previous Surgical History PAST SURGICAL HISTORY Procedure Laterality Date ABDOMINAL SURGERY HX AMPUTATION METATARSAL+TOE,SINGLE Right 05/25/2018 with delayed closure on 05/28/18. Dr. Obregon at [facility] 10/10/2021 repeat in 3 years [...] ONCE DAILY. FOR CHOLESTEROL. blood sugar diagnostic ([email or web address] ULTRA TEST) test strip Test blood sugar(s) [...] Abs Lymph 1.00 - 4.00 k/uL 1.81 Taylor% % 6.9 Abs Taylor <0.87 k/uL 0.86 Eosin% % 3.1 Abs [...] PANEL Abdulaziz Caldera MD documented in this encounterRegency Hospital [facility] West08-22-2022 History of Present illness Narrative* Rosa Elena [...] 1: Forward and backward stepping over 6 gustvao with 1 UE assist x 10 each [...] Rosa Elena Poon PT documented in this encounterRegency Hospital [facility] West08-19-2022 History of Present illness Narrative* Rosa Elena [...] Rosa Elena Poon PT documented in this encounterRegency Hospital [facility] West08-15-2022 History of Present illness Narrative* Rosa Elena [...] Rosa Elena Poon PT documented in this encounterRegency Hospital [facility] West08-12-2022 History of Present illness Narrative* Rosa Elena [...] Treatment Time Minutes (timed/untimed): 43 Karen Weber, PROVIDER RELATIONS REPRESENTATIVE Rosa Elena Poon PT documented in this encounterRegency Hospital [facility] West08-03-2022 History of Present illness Narrative* Rosa Elena [...] Rosa Elena Poon PT documented in this encounterRegency Hospital [facility] West07-29-2022 History of Present illness Narrative* Rosa Elena [...] 01/12/22 through 03/15/22 Goals updated on 02/09/2022. [place] in home exercise program. (Met) Patient will [...] Patient to be seen for Therapeutic exercise (85930);Neuromuscular re-education (22263);Gait Training (59235);Patient/Family/Caregiver Education PLAN FOR NEXT VISIT: Continue to [...] Rosa Elena Poon PT documented in this encounterRegency Hospital [facility] West07-26-2022 Miscellaneous Notes* Telephone Encounter - Nola Castor [facility] - 02/06/2022 2:18 PM EDT Patient has been identified by name and date of : Yes Pending Prescriptions Disp Refills PEN NEEDLE, DIABETIC 31 GAUGE X /16 120 Each 11 Si Each four times daily. With insulin NUHA: No RX INSTRUCTIONS: Patient aware RX will be sent to pharmacy. No need to notify patient. Nola Castro Pss documented in this encounterRegency Hospital [facility] West07-22-2022 History of Present illness Narrative* Cortney Ollie, [...] 43 ALISIA Whiting PT documented in this encounterRegency Hospital [facility] West07-21-2022 Miscellaneous Notes* Telephone Encounter - Mila Castro [...] notify patient. Eulalia Whitlocksec documented in this encounterRegency Hospital [facility] West07-19-2022 History of Present illness Narrative* Justina Escoto, [...] Gus, ALISIA Escoto, PT documented in this encounterRegency Hospital [facility] West07-12-2022 Miscellaneous Notes* Telephone Encounter - Rebecca Gonzales [...] you. Rebecca Gonzales RN documented in this encounterRegency Hospital [facility] West07-12-2022 History of Present illness Narrative* Chiki Byrd, [...] 45 ALISIA Whiting PT documented in this encounterRegency Hospital [facility] West07-08-2022 Miscellaneous Notes* Telephone Encounter - Maggy Stevie [...] on driving. Please advise. documented in this encounterRegency Hospital [facility] West07-01-2022 History of Present illness Narrative* Rosa Elena [...] of Care: created on 01/12/22 through 03/15/22 [place] in home exercise program. Patient will demonstrate [...] Planned: 16 Planned Treatment Interventions: Therapeutic exercise (68698);Neuromuscular re- education (30834);Gait Training (55935);Patient/Family/Caregiver Education PLAN FOR NEXT VISIT: Review HEP [...] Rosa Elena Poon PT documented in this encounterRegency Hospital [facility] West07-01-2022 Miscellaneous Notes* Telephone Encounter - Ewa Andino [...] Pending consult. Please advise documented in this encounterRegency Hospital [facility] West06-29-2022 Miscellaneous Notes* Telephone Encounter - Mila Sharma [...] his syncope/collapse. Thank you! documented in this encounterRegency Hospital [facility] West06-29-2022 Miscellaneous Notes* Result QuickNote - Justina Monique APRN.CNP - 01/10/2022 11:33 AM EDT Please call patient and notify him. Echocardiogram is stable. Valve replacement function is stable.No cardiac structure/function changes to explain his syncope/collapse. Thank you! documented in this encounterRegency Hospital [facility] West06-24-2022 History of Present illness Narrative* Jojo Kaur [...] shared medical record. REFERRING PHYSICIAN: Abdulaziz Caldera [address] [facility] [address] Accompanied by: Spouse ASSESSMENT: 76 year old [...] evaluation of folllow up after hospitalization in [facility]. 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 Dr. Obregon at [facility] 10/10/2021 repeat in 3 years [...] by mouth once daily. blood sugar diagnostic ([email or web address] ULTRA TEST) test strip Test blood sugar(s) [...] gait ,unsteady Cannot tandem Jojo Kaur M.D. [facility] [place] Department of Neurology January 05, 2022 Total [...] lights on at night. documented in this encounterRegency Hospital [facility] West06-21-2022 Miscellaneous Notes* Telephone Encounter - Justina Garcia LPN - 01/02/2022 8:06 AM EDT I spoke to and informed him of Justina's response to lipid panel results. Patient voiced understanding. Justina Garcia LPN * Telephone Encounter - Justina Garcia LPN - 01/02/2022 7:43 AM EDT ----- Message from Justina Monique APRN.SLEEP TECHNOLOGIST sent at 01/02/2022 7:38 AM EDT ----- Please call patient and notify him cholesterol has good control. Thank you! documented in this encounterRegency Hospital [facility] West06-20-2022 History of Present illness Narrative* Abdulaziz Caldera MD - 01/01/2022 10:20 AM EDT Chief Complaint Patient presents with: Hospital Follow Up: [facility]21 HPI Richard Roy is a 76 year old male who presents here today for Hospital Discharge Follow up. Accompanied today by his . [facility] 12/[facility] to 12/29 after presenting to the [facility] ED after being found slumped over his tractor at home earlier in the afteeron. Had been working outside for unknown period of time. Had only eaten cookies and milk that day. Heat index over 100. Back to baseline at the time of evaluation by hospitalist at [facility]. Found to have leukocytosis at [facility] and elevated lactic acid level. Noted [...] echo since it was not completed at [facility]. No other changes to regimen. Patient [...] Benign-Dr. 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 Dr. Obregon [facility] 10/10/2021 repeat in 3 years [...] by mouth once daily. blood sugar diagnostic ([employer]CH ULTRA TEST) test strip Test blood sugar(s) [...] SCRN Abdulaziz Caldera MD documented in this encounterRegency [facility]-2022 Instructions* Patient Instructions* Justina Monique APRN.SLEEP TECHNOLOGIST - 01/01/2022 9:05 AM EDT High Blood [...] risk for high blood pressure. Developed by [employer]. Published by [employer]. Copyright 2014 [employer] and/or one of its subsidiaries. All rights reserved. documented in this encounterRegency Hospital [facility] West06-20-2022 History of Present illness Narrative* Justina Monique [...] Benign-Dr. Cazares Diabetes mellitus with neurological manifestation ([facility]) 09/08/2010 Diverticulosis of colon (without mention [...] kidney disease, with long-term current use of insulin([facility]) 06/20/2016 PAST SURGICAL HISTORY Procedure Laterality Date ABDOMINAL SURGERY HX AMPUTATION METATARSAL+TOE,SINGLE Right 05/25/2018 with delayed closure on 05/28/18. Dr. Obregon at [facility] 10/10/2021 repeat in 3 years [...] 10 mL INTRAVENOUS DIRECTED PRN Justina Monique, POWER BUILDER DEVELOPER.SLEEP TECHNOLOGIST Review of Systems Constitutional: Negative for chills, [...] MRI of his head CAD -MILD on [facility] 2004 -stress testing 2013 with [...] 01, 2022, 8:57 AM documented in this encounterRegency Hospital [facility]06-19-2022 Note. MICRO - Microbiology PROCEDURE: Blood Culture (bacterial) [*1] SOURCE: Blood BODY SITE: COLLECTED DATE/TIME: 12/27/2021 17:43 EDT RECEIVED DATE/TIME: 12/28/2021 14:37 EDT START DATE/TIME: 12/28/2021 14:37 EDT FREE TEXT SOURCE: FINAL REPORTS Final Report [] Verified Date/Time/Personnel: 12/31/2021 07:29 EDT Staphylococcus epidermidis Isolated from anaerobe bottle only. Refer to previous culture for susceptibility. [id number] PRELIMINARY REPORTS Preliminary Report [] Verified Date/Time/Personnel: 12/30/2021 09:39 EDT Staphylococcus epidermidis Isolated from anaerobe bottle only. Refer to previous culture for susceptibility. [id number] Preliminary Report [] Verified Date/Time/Personnel: 12/28/2021 15:59 EDT Culture has been received in lab and is no growth to date. Routine cultures are held for 5 days. STAINS GSANA [] Verified Date/Time/Personnel: 12/29/2021 14:08 EDT Gram Positive Cocci in clusters Performing Locations *1: This test was performed at: [facility], [address] [place] [address], [id number]- , [facility] ([place])12-31-2021 Note. MICRO - Microbiology PROCEDURE: Blood Culture [...] Locations *1: This test was performed at: [place] [address] [place] [address], [phone]- , [facility] ([place])12-27-2021 SARS-CoV-2 (COVID-19) RNA ANGELY+probe Ql (Nph)Positive 2 *ABN* (12/27/21 5:43 PM)AO Auto Urine SSComment on above:Result Comment: positive covid cvrb tatianna ruthr Evaluation + Plan note Diagnostic Tests Pending * Urinalysis 12/27/21 * Blood Culture (bacterial) 12/27/21 * Blood Culture (bacterial) 12/27/21 [facility] 06-02-2022 History of Present illness Narrative* Abdulaziz Caldera MD - 12/14/2021 3:13 PM EDT Chief Complaint Patient presents with: Covid Follow Up HPI Richard Roy is a 76 year old male who presents here today for Above Complaints.. [facility] week on [facility]/06. Spoke [...] kidney disease, with long-term current use of insulin([facility]) 06/20/2016 Previous Surgical History PAST SURGICAL HISTORY Procedure Laterality Date ABDOMINAL SURGERY HX AMPUTATION METATARSAL+TOE,SINGLE Right 05/25/2018 with delayed closure on 05/28/18. Dr. Obregon [facility] 10/10/2021 repeat in 3 years [...] by mouth once daily. blood sugar diagnostic (Anatole[employer]OUCH ULTRA TEST) test strip Test blood sugar(s) [...] detail. Abdulaziz Caldera MD documented in this encounterRegency Hospital [facility]05-27-2022 History of Present illness Narrative* Abdulaziz Caldera [...] today for Above Complaints.. [facility] on [facility] for complaint of generalized weakness, cough, and feeling off balance and developed cough which started on 12/04. Denied other COVID symptoms at that time. Lab workup in the ER was unremarkable aside from positive COVID test and INR of 3.3. UA unremarkable. CXR showed some ill defined densities in RLL which was likely 2/2 COVID infection. [place] to be well enough and discharged home [...] Benign-Dr. 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 Dr. Obregon [facility] 10/10/2021 repeat in 3 years [...] by mouth once daily. blood sugar diagnostic ([email or web address] ULTRA TEST) test strip Test blood sugar(s) [...] these interactions. Not interested in driving to [place] for IV ab. Since his symptoms are mild, he would prefer to rest at home. Discussed risks and benefits of treatment and that he is high risk for severe infection. Red flags for re-assessment reviewed with patient in detail. I spent a total of 25 minutes on the date of the service which included preparing to see the patient, [id number] patient care, completing clinical documentation, obtaining and/or reviewing separately obtained history, performing a medically appropriate examination, counseling and educating the pat ient/family/caregiver and ordering medications, tests, or procedures. Abdulaziz Caldera MD documented in this encounterRegency Hospital [facility]05-27-2022 Miscellaneous Notes* Telephone Encounter - Abdulaziz Caldera [...] with one of our providers or with [facility] care online. * Telephone Encounter - Rosa Elena Lockhart - 12/08/2021 2:16 PM EDT Patient called stating [facility]. Tested positive for covid. Patient was informed tocontact the office within 5 days to inform. Please advise patient when he can be seen in office. documented in this encounterRegency Hospital [facility]05-09-2022 Miscellaneous Notes* Telephone Encounter - Eulalia Gaston [...] patient. Eulalia Gaston [employer] documented in this encounterRegency Hospital [facility]04-11-2022 Instructions* Patient Instructions* Marcella Park PA-C - 10/23/2021 1:25 PM EDT -Recommend daily fiber supplement and plenty of fluids The following instructions are important for you related to your office visit today with the [facility] General Surgeons. INSTRUCTIONS FOR DIVERTICULA I [...] you should contact our office immediately @ [phone] and ask to be transferred to the General Surgery department. The following instructions are important for you related to your office visit today with the [facility]. INSTRUCTIONS FOLLOWING A POLYP [...] you should contact our office immediately @ [phone] and ask to be transferred to the General Surgery department. documented in this encounterRegency Hospital [facility]04-11-2022 History of Present illness Narrative* Marcella Park PA-C - 10/23/2021 1:09 PM EDT FOLLOW UP VISIT - ENDOSCOPY NAME: Richard [facility] NO.: [id number] DATE OF SERVICE: 10/23/2021 : 1945 REFERRING [...] which included preparing to see the patient, [id number] patient care, completing clinical documentation, obtaining and/or reviewing separately obtained history, counseling and educating the patient/family/caregiver, communicating with other HCPs (not separately reported), independently interpreting results (not separately reported) and communicating results to the patient/family/caregiver. Marcella Park PA-C documented in this encounterRegency Hospital [facility]03-29-2022 Nurse Note* Caroline Larkin RN - 10/10/2021 [...] answered. Caroline Larkin RN documented in this encounterRegency Hospital [facility]03-29-2022 History and physical note * Richard Jones [...] PHYSICAL Richard Roy 1945 REFERRING PHYSICIAN: Abdulaziz aCldera,* CHIEF COMPLAINT: Consult (colonoscopy) HPI: The patient is a 75 year old male referred for endoscopy. notes no colon complaints. Patient denies any change in bowel habits, weight changes, blood in stools, black tarry stools or abdominal pain. Denies family history of colon issues. The patient notes no upper GI complaints. Rcihard has undergone prior endoscopy. Most recent colonoscopy [...] delayed closure on 05/28/18. Dr. Obregon at [facility] FLX DX W/COLLJ SPEC WHEN [...] by mouth once daily. blood sugar diagnostic ([email or web address] ULTRA TEST) test strip Test blood sugar(s) [...] entered by the nurse and reviewed by ga Nursing Notes: Cortney Starr LPN 08/16/2021 8:38 [...] patient was offered a surgery/procedure at a [facility]. I have counseled the patient regarding [...] diagnosis) Marcella Park PA-C documented in this encounterRegency Hospital [facility]03-24-2022 Miscellaneous Notes* Telephone Encounter - Mila Anne [...] notify patient. Violette Lockhart documented in this encounterRegency Hospital [facility] West03-23-2022 Miscellaneous Notes* Telephone Encounter - Nelson Hernandez [...] advise, Halima Diaz RN documented in this encounterRegency Hospital [facility]02-02-2022 Miscellaneous Notes* Telephone Encounter - Garland Vicente - 08/16/2021 9:36 AM EST 10-10-2021 Colon [facility] documented in this encounterRegency Hospital [facility] West01-13-2022 NoteHNO ID: [id number] Author: REY Burt Service: Radiology Author Type: Contract Associate Manager Type: Progress Notes Filed: 07/27/2021 10:50 [...] Roy DATE: July 27, 2021 TIME: 10:49 [id number] History of Past illness Narrative* Problem Noted [...] of this encounter (statuses as of 10/04/2021) [facility] History of Past illness Narrative* Problem Noted [...] of this encounter (statuses as of 10/05/2021) [facility] History of Past illness Narrative* Problem Noted [...] of this encounter (statuses as of 10/11/2021) [facility] History of Past illness Narrative* Problem Noted [...] of this encounter (statuses as of 10/16/2021) [facility] History of Past illness Narrative* Problem Noted [...] of this encounter (statuses as of 10/27/2021) [facility] History of Past illness Narrative* Problem Noted [...] of this encounter (statuses as of 11/20/2021) [facility] History of Past illness Narrative* Problem Noted [...] of this encounter (statuses as of 12/12/2021) [facility] History of Past illness Narrative* Problem Noted [...] of this encounter (statuses as of 12/13/2021) [facility] History of Past illness Narrative* Problem Noted [...] of this encounter (statuses as of 12/14/2021) [facility] History of Past illness Narrative* Problem Noted [...] of this encounter (statuses as of 01/01/2022) [facility] of Past illness Narrative* Problem Noted [...] of this encounter (statuses as of 01/02/2022) [facility] of Past illness Narrative* Problem Noted [...] of this encounter (statuses as of 01/02/2022) [facility] of Past illness Narrative* Problem Noted [...] of this encounter (statuses as of 01/06/2022) [facility] of Past illness Narrative* Problem Noted [...] of this encounter (statuses as of 01/10/2022) [facility] of Past illness Narrative* Problem Noted [...] of this encounter (statuses as of 01/11/2022) [facility] of [facility] illness Narrative* Problem Noted [...] of this encounter (statuses as of 01/12/2022) [facility] of Past illness Narrative* Problem Noted [...] of this encounter (statuses as of 01/12/2022) [facility] Narrative* Problem Noted [...] of this encounter (statuses as of 01/19/2022) [facility] of [facility] Narrative* Problem Noted [...] of this encounter (statuses as of 01/23/2022) [facility] of [facility] Narrative* Problem Noted [...] of this encounter (statuses as of 01/25/2022) [facility] Narrative* Problem Noted [...] of this encounter (statuses as of 01/30/2022) [facility] Narrative* Problem Noted [...] of this encounter (statuses as of 02/01/2022) [facility] Narrative* Problem Noted [...] of this encounter (statuses as of 02/02/2022) [facility] Narrative* Problem Noted [...] of this encounter (statuses as of 02/02/2022) [facility] Narrative* Problem Noted [...] of this encounter (statuses as of 02/06/2022) [facility] Narrative* Problem Noted [...] of this encounter (statuses as of 02/09/2022) [facility] of [facility] Narrative* Problem Noted [...] of this encounter (statuses as of 02/14/2022) [facility] Narrative* Problem Noted [...] of this encounter (statuses as of 02/26/2022) [facility] Narrative* Problem Noted [...] of this encounter (statuses as of 03/02/2022) [facility] Narrative* Problem Noted [...] of this encounter (statuses as of 03/05/2022) [facility] Narrative* Problem Noted [...] of this encounter (statuses as of 03/07/2022) [facility] Narrative* Problem Noted [...] of this encounter (statuses as of 03/08/2022) [facility] Narrative* Problem Noted [...] of this encounter (statuses as of 03/09/2022) [facility] Narrative* Problem Noted [...] of this encounter (statuses as of 03/12/2022) [facility] Narrative* Problem Noted [...] of this encounter (statuses as of 03/16/2022) [facility] Narrative* Problem Noted [...] of this encounter (statuses as of 03/23/2022) [facility] Narrative* Problem Noted [...] of this encounter (statuses as of 04/03/2022) [facility] Narrative* Problem Noted [...] of this encounter (statuses as of 04/04/2022) [facility] Narrative* Problem Noted [...] of this encounter (statuses as of 04/06/2022) [facility] Narrative* Problem Noted [...] of this encounter (statuses as of 04/17/2022) [facility] Narrative* Problem Noted [...] of this encounter (statuses as of 04/17/2022) [facility] Narrative* Problem Noted [...] of this encounter (statuses as of 04/19/2022) [facility] Narrative* Problem Noted [...] of this encounter (statuses as of 05/16/2022) [facility] Narrative* Problem Noted [...] of this encounter (statuses as of 06/25/2022) [place] [address]-13-2015 History of Past illness Narrative* Problem Noted [...] of this encounter (statuses as of 07/14/2022) [facility] Narrative* Problem Noted [...] of this encounter (statuses as of 07/15/2022) [facility] Narrative* Problem Noted [...] of this encounter (statuses as of 07/18/2022) [facility] Narrative* Problem Noted [...] of this encounter (statuses as of 07/18/2022) [facility] Narrative* Problem Noted [...] of this encounter (statuses as of 07/19/2022) [facility] Narrative* Problem Noted [...] of this encounter (statuses as of 07/20/2022) [facility] Narrative* Problem Noted [...] of this encounter (statuses as of 07/25/2022) [facility] Narrative* Problem Noted [...] of this encounter (statuses as of 07/26/2022) [facility] N[facility]* Problem Noted [...] of this encounter (statuses as of 07/27/2022) [facility] Narr[facility]* Problem Noted [...] of this encounter (statuses as of 07/31/2022) [facility] Narrative* Problem Noted [...] of this encounter (statuses as of 08/06/2022) [facility] Narr[facility]* Problem Noted [...] of this encounter (statuses as of 08/07/2022) [facility] Narrative* Problem Noted [...] of this encounter (statuses as of 08/09/2022) [facility] Narrative* Problem Noted [...] of this encounter (statuses as of 08/14/2022) [facility] Narrative* Problem Noted [...] of this encounter (statuses as of 08/16/2022) [facility] N[facility]* Problem Noted [...] of this encounter (statuses as of 08/28/2022) [facility] N[facility]* Problem Noted [...] of this encounter (statuses as of 09/07/2022) [facility] N[facility]* Problem Noted [...] of this encounter (statuses as of 09/09/2022) [facility] Narr[facility]* Problem Noted [...] of this encounter (statuses as of 09/25/2022) [facility] Narrative* Problem Noted [...] of this encounter (statuses as of 10/23/2022) [facility] Narrative* Problem Noted [...] of this encounter (statuses as of 11/20/2022) [facility] Narr[facility]* Problem Noted [...] of this encounter (statuses as of 11/20/2022) [facility] Narr[facility]* Problem Noted [...] of this encounter (statuses as of 12/13/2022) [facility] N[facility]* Problem Noted [...] of this encounter (statuses as of 12/14/2022) [facility] Narrative* Problem Noted [...] of this encounter (statuses as of 12/18/2022) [facility] Narr[facility]* Problem Noted [...] of this encounter (statuses as of 12/25/2022) [facility] Narr[facility]* Problem Noted [...] of this encounter (statuses as of 12/27/2022) [facility] Narrative* Problem Noted [...] of this encounter (statuses as of 12/31/2022) [facility] Narrative* Problem Noted [...] of this encounter (statuses as of 01/03/2023) [facility] Narrative* Problem Noted [...] of this encounter (statuses as of 01/04/2023) [facility] Narrative* Problem Noted [...] of this encounter (statuses as of 01/04/2023) [facility] Narrative* Problem Noted [...] of this encounter (statuses as of 01/25/2023) [facility] Narrative* Problem Noted [...] of this encounter (statuses as of 01/29/2023) [facility] note* Diagnosis Type 2 diabetes mellitus with diabetic neuropathy, with long-term current use of insulin (HCC) Status post aortic valve repair Other postprocedural status Chronic anticoagulation Long-term (current) use of anticoagulants [facility] [place] [facility] Diagnosis Colon cancer screening Special screening for malignant neoplasms, colon documented in this encounter [facility] note* Diagnosis Colon cancer screening- Primary Special screening for malignant neoplasms, colon documented in this encounter [facility] note* Diagnosis Diverticulosis- Primary Diverticulosis of colon (without mention of hemorrhage) Cecal polyp documented in this encounter [facility] noteNo assessment information availableWDoctors Hospital Work Phone: Evaluation note* Diagnosis COVID-19- Primary documented in this encounter [facility] note* Diagnosis COVID-19- Primary documented in this encounter [facility] note* Diagnosis Onset Date Resolution Status Acute dehydration acute ANTHONY (acute kidney injury) ac derek Heat exhaustion acute Hyperkalemia acute Lactic acidosis acute Leukocytosis acute [facility] Work Phone: Evaluation note* Diagnosis Hyperlipidemia with target LDL less than 100- Primary Other and unspecified hyperlipidemia Primary hypertension Unspecified essential hypertension Thoracic aortic aneurysm without rupture (HCC) Thoracic aneurysm without mention of rupture 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 Syncope, unspecified syncope type Obesity, Class II, BMI 35-39.9 Obesity, unspecified documented in this encounter [facility] note* Diagnosis Syncope and collapse- Primary Altered mental status, unspecified altered mental status type Urinary incontinence, unspecified type Benign prostatic hyperplasia with nocturia Nocturia Vitamin D deficiency, unspecified Wound of left lower extremity, initial encounter Encounter for screening for malignant neoplasm of prostate Special screening for malignant neoplasm of prostate [facility] [place] [facility] Diagnosis Abnormality of gait due to impairment of balance- Primary Altered mental status, unspecified altered mental status type [facility] [place] [facility]* Diagnosis Chronic anticoagulation Long-term (current) use of anticoagulants Thoracic aortic aneurysm without rupture (HCC) Thoracic aneurysm without mention of rupture Status post aortic valve repair Other postprocedural status [facility] [place] [facility]* Diagnosis Type 2 diabetes mellitus with diabetic neuropathy, with long-term current use of insulin (HCC)- Primary [facility] [place] [facility]* Diagnosis Abnormality of gait due to impairment of balance- Primary [facility] [place] [facility]* Diagnosis Abnormality of gait due to impairment of balance- Primary [facility] [place] [facility]* Diagnosis Vitamin D deficiency Unspecified vitamin D deficiency [facility] [place] [facility] Diagnosis Abnormality of gait due to impairment of balance- Primary [facility] [place] [facility]* Diagnosis Vitamin D deficiency Unspecified vitamin D deficiency [facility] [place] [facility]* Diagnosis Type 2 diabetes mellitus with stage 3 chronic kidney disease, with long-term current use of insulin (HCC) [facility] [place] [facility]* Diagnosis Abnormality of gait due to impairment of balance- Primary [facility] [place] [facility]* Diagnosis Type 2 diabetes mellitus with diabetic neuropathy, with long-term current use of insulin (HCC) [facility] [place] [facility]* Diagnosis Abnormality of gait due to impairment of balance- Primary [facility] [place] [facility]* Diagnosis Abnormality of gait due to impairment of balance- Primary [facility] [place] [facility]* Diagnosis Onset Date Resolution Status Acute dehydration resolved Heat exhaustion resolved [facility] Work Phone: Evaluation note* Diagnosis Abnormality of gait due to impairment of balance- Primary [facility] [place] [facility]* Diagnosis Status post aortic valve repair Other postprocedural status Chronic anticoagulation Long-term (current) use of anticoagulants [facility] [place] [facility]* Diagnosis Generalized weakness- Primary Other malaise and fatigue Supratherapeutic INR Abnormal coagulation profile ANTHONY (acute kidney injury) (HCC) Acute kidney failure, unspecified [facility] [place] [facility]* Diagnosis Abnormality of gait due to impairment of balance- Primary [facility] [place] [facility]* Diagnosis Abnormality of gait due to impairment of balance- Primary [facility] [place] [facility]* Diagnosis Urinary incontinence, unspecified type [facility] [place] [facility]* Diagnosis Abnormality of gait due to impairment of balance- Primary [facility] [place] [facility]* Diagnosis Onychomycosis- Primary Dermatophytosis of nail Pain in toe of left foot Pain in limb Amputated toe of right foot (HCC) Diabetic polyneuropathy associated with type 2 diabetes mellitus ([facility]) [facility]* Diagnosis Generalized weakness- Primary Other malaise and fatigue Encounter for immunization Need for other specified prophylactic vaccination against single bacterial disease Mild depression Depressive disorder, not elsewhere classified [facility] [place] [facility]* Diagnosis Generalized anxiety disorder- Primary Polyneuropathy Unspecified hereditary and idiopathic peripheral neuropathy [facility] Diagnosis Urinary incontinence, unspecified type documented in this encounter [facility] note* Diagnosis Onset Date Resolution Status History of pulmonary embolism acute History of thoracic aortic aneurysm repair acute NSTEMI, initial episode of care acute HTN (hypertension) [facility] Work Phone: Evaluation note* Diagnosis Dizziness- Primary Dizziness and giddiness Chronic frontal sinusitis [facility] [place] [facility]* Diagnosis Type 2 diabetes mellitus with diabetic neuropathy, with long-term current use of insulin ([facility])- Primary Diabetic polyneuropathy associated with type 2 diabetes mellitus (HCC) NSTEMI (non-ST elevated myocardial infarction) ([facility]) Acute myocardial infarction, subendocardial infarction, episode [...] disease, with long-term current use of insulin ([facility]) 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, macular edema presence unspecified (HCC) documented in this encounter [facility] note* Diagnosis Driving safety issue- Primary Other specified personal history presenting hazards to health documented in this encounter [facility] note* Diagnosis Onychomycosis- Primary Dermatophytosis of nail Pain in toe of left foot Pain in limb Amputated toe of right foot (HCC) Diabetic polyneuropathy associated with type 2 diabetes mellitus (HCC) documented in this encounter [facility] note* Diagnosis Spinal stenosis, lumbar region, without neurogenic claudication- Primary Primary osteoarthritis of both knees Primary localized osteoarthrosis, lower leg documented in this encounter [facility] note* Diagnosis Spinal stenosis, lumbar region, without neurogenic claudication- Primary Primary osteoarthritis of both knees Primary localized osteoarthrosis, lower leg documented in this encounter [facility] note* Diagnosis Spinal stenosis, lumbar region, without neurogenic claudication- Primary Primary osteoarthritis of both knees Primary localized osteoarthrosis, lower leg documented in this encounter [facility] note* Diagnosis Spinal stenosis, lumbar region, without neurogenic claudication- Primary Primary osteoarthritis of both knees Primary localized osteoarthrosis, lower leg documented in this encounter [facility] note* Diagnosis Spinal stenosis, lumbar region, without neurogenic claudication- Primary Primary osteoarthritis of both knees Primary localized osteoarthrosis, lower leg documented in this encounter [facility] note* Diagnosis Spinal stenosis, lumbar region, without neurogenic claudication- Primary Primary osteoarthritis of both knees Primary localized osteoarthrosis, lower leg documented in this encounter [facility] note* Diagnosis Onset Date Resolution Status Confusion acute Weakness acute [facility] Work Phone: Evaluation note* Diagnosis Onset Date Resolution Status Confusion acute Weakness acute ABLA (acute blood loss anemia) acute Acute encephalopathy acute Supratherapeutic INR acute Syncope acute Upper gastrointestinal bleeding acute Warfarin-induced coagulopathy acute [facility] Work Phone: Evaluation note* Diagnosis Onset [...] acute Warfarin-induced coagulopathy acute HTN (hypertension) chronic [facility] Work Phone: Evaluation note* Diagnosis Onset [...] type II acute Sick sinus syndrome acute [facility] Work Phone: Evaluation note* Diagnosis Onset [...] (INR) acute UTI (urinary tract infection) acute [facility] Work Phone: evaluation note* Diagnosis Onset [...] UTI (urinary tract infection) acute Weakness acute [facility] Work Phone: Evaluation note* Diagnosis Onset [...] Second degree AV block, Mobitz type II [facility] Work Phone: Evaluation note* Diagnosis Onset [...] Second degree AV block, Mobitz type II [facility] Work Phone: Evaluation note* Diagnosis Onset [...] Second degree AV block, Mobitz type II [facility] Work Phone: Evaluation note* Diagnosis Onset Date Resolution Status Presence of cardiac pacemaker acute Syncope acute Second degree AV block, Mobitz type II chronic Sick sinus syndrome chronic Atrial fibrillation acute HLD (hyperlipidemia) acute Presence of cardiac pacemaker acute HTN (hypertension) chronic Second degree AV block, Mobitz type II [facility] Work Phone: Evaluation note* Diagnosis Onset Date Resolution Status Atrial fibrillation acute HLD (hyperlipidemia) acute Presence of cardiac pacemaker acute HTN (hypertension) chronic Second degree AV block, Mobitz type II [facility] Work Phone: History and physical note Author Dr. Aly [facility] January 04, 2023 4:32pm Note Date/Time January 04, 2023 4:12 pm [facility] Medical Records Department [address] [place] [id number] H&P Exam - Hospitalist 01/04/23 1607 MR#: [id number] Acct: [id number] Name: RICHARD ROY Rep #:[id number] : 1945 77 From: Karen Aly MD PCP: Dr. Luis Caldera MD Status :ADM LUIS ANGEL Location: [place] [address] HPI - General General Date of Admission: 01/04/23 Date of Service: 01/04/23 Chief Complaint: Confusion, falls. HPI Narrative The patient is a 77 y/o M w/ PMHx: AAA s/p repair, Hx COVID-19, Hx GI bleed, Valvular heart disease s/p AVR, HTN, HLD, VTE w/ Hx DVT/PE, Diabetes mellitus type II, Obesity who [facility] with history of ~ [...] no acute intracranial abnormality, right maxillary sinusitis. [facility] Medical History Amputation of right great toe [...] 78.3 H, Lymph % (Auto) 12.8 L, Taylor % (Auto) 5.9, Eos % (Auto) 1.7, [...] Sl. Cloudy, Urine pH 6.0, Ur Specific [place] 1.020, Urine Protein 15 H, Urine Glucose [...] type II, Obesity who presents to the [facility] on 01/04/23 with history of ~ [...] 60 minutes. Charges/Coding Visit Charges Inpatient E&M: 42250 Init Hosp L2 01/04/23 3882 <Electronically signed by Karen Aly MD> Cosigner Signature (if applicable): CC: Dr. Karen Aly MD; Dr. Luis Caldera MD~ Signed [facility] Work Phone: Hospital course Narrative No data available for this section [facility] Discharge instructions No data available for this section [facility] Discharge instructions Additional Instructions Work-up revealed [...] days of antibiotics [facility] Work [facility]: Progress note No data available for this section [facility] Progress note Author Liu Hackett [facility] January 26, 2023 3:50pm Note Date/Time January 26, 2023 3:50 pm [facility] Medical Records Department [address] [place] [address] Progress Note - GI 01/26/23 1549 MR#: [id number] Acct: [id number] Name: RICHARD ROY Rep #:[id number] : 1945 77 From: Liu Hackett DO PCP: Dr. Luis Caldera MD Status :ADM IN Location: [place] [address] Subjective Subjective Patient is doing well today. [...] 78.4 H, Lymph % (Auto) 8.1 L, Taylor % (Auto) 9.6, Eos % (Auto) 1.6, [...] Heart rate in 50s.. Discussed with the fat pressroom worker. No chest pain or tightness. Physical exam [...] ensure healing. Charges/Coding Visit Charges Inpatient E&M: 31833 Subs Hosp L3 01/26/23 1550 <Electronically signed by Liu Hackett DO> Cosigner Signature (if applicable): CC: ~ Signed [facility] Work Phone: Progress note Author Smith Leija [facility] February 13, 2023 3:58pm Note Date/Time February 13, 2023 3:5 8pm [facility] Medical Records Department [address] [place] [address] Progress Note - Infect Disease 02/13/231556 MR#: [id number] Acct: [id number] Name: RICHARD ROY Rep #:[id number] : 1945 77 From: Smith huang MD PCP: Dr. Luis Caldera MD Status :ADM IN Location: [address] Physical Exam Narrative Feeling better, no [...] Cosigner Signature (if applicable): CC: ~ Signed [facility] Work Phone: Reason for referral (narrative)* Outpatient Procedure (Routine) - Closed Specialty Diagnoses / Procedures Referred By Linn t Referred To Contact [facility] Diagnoses Colon cancer screening Procedures COLONOSCOPY SCREENING COLONOSCOPY FLX DX W/COLLJ SPEC WHEN Marcella Alatorre PA-C [address] [place] [address] [facility] [place] [address] [place], [place] [id number] [address] Referral ID Status Reason Start Date Expiration Date V isits Requested Visits Authorized [id number] Closed Auto-Generate d Referral 08/16/2021 08/16/2022 1 1 [facility] for referral (narrative)* Outpatient Procedure (Routine) - Closed Specialty Diagnoses / Procedures Referred By Contac t Referred To Contact [facility] Diagnoses Colon cancer screening Procedures COLONOSCOPY SCREENING COLONOSCOPY FLX DX W/COLLJ SPEC WHEN Marcella Alatorre PA-C [address] [place] [address] [facility] Disease [address] [address] Referral ID Status Reason Start Date Expiration Date V isits Requested Visits Authorized [id number] Closed Auto-Generate d Referral 08/16/2021 08/16/2022 1 1 [facility] for referral (narrative)No reason for referral information [facility] Work Phone: Reason for visit Narrative* Outpatient Procedure (Routine) - Closed Specialty Diagnoses / Procedures Referred By Contac t Referred To Contact [facility] Diagnoses Colon cancer screening Procedures COLONOSCOPY SCREENING COLONOSCOPY FLX DX W/COLLJ SPEC WHEN Marcella Alatorre PA-C [address] [place] [address] [facility] Disease [address] [address] Referral ID Status Reason Start Date Expiration Date V isits Requested Visits Authorized [id number] Closed Auto-Generate d Referral 08/16/2021 08/16/2022 1 1 [facility] for visit Narrative* Outpatient Procedure (Routine) - Closed Specialty Diagnoses / Procedures Referred By Contac t Referred [facility] Diagnoses Chronic anticoagulation Thoracic aortic aneurysm without rupture (HCC) Status post aortic valve repair Procedures ECHO TTE W/DOPPLER, COMPLETE Justina Monique, POWER BUILDER DEVELOPER.SLEEP TECHNOLOGIST [address] [place] [address] [facility] [address] [place] [address] Referral ID Status Reason Start Date Expiration Date V isits Requested Visits Authorized [id number] Closed Auto-Generate d Referral 07/03/2021 07/03/2022 1 1 [facility] Advance Directives No Advanced Directives Records FoundDocuments on File Type Date Recorded Patient Education Program Coordinator Expl anation Advance Directive(s) 09/12/2021 7:14 AM Documents on File Type Date Recorded Patient Education Program Coordinator Expl anation Advance Directive(s) 09/12/2021 7:14 AM Advance Directive Response Recorded Date/ Time Advance Directives Yes September 16 11:11pm Living Will No December 06, 2021 1 1:07pm Power of Typewriter Assembler No December 06, 2021 11:07pm Advance Directive Response Recorded Date/ Time Name of Medical Power of Typewriter Assembler Aníbal Roy December 27, 2021 10:36pm Advance Directives Yes September 16 11:11pm Living Will Yes December 27, 2021 10:36pm Power of Typewriter Assembler Yes December 27 10:36pm Advance Directive Response Recorded Date/ Time Name of Medical Power of Typewriter Assembler Aníbal Roy December 27, 2021 10:36pm Name of Medical Power of Typewriter Assembler TEDDY ROY (SON ) March 02, 2022 2:34pm Advance Directives Yes September 16 11:11pm Living Will Yes March 02 2:34pm Power of Typewriter Assembler Yes March 02 022 2:34pm Advance Directive Response Recorded Date/ Time Name of Medical Power of Typewriter Assembler teddy roy July 10, 2022 3:06am Advance Directives Yes September 16 10:11pm Living Will Yes July 10, 022 3:06am Power of Typewriter Assembler Yes July 10, 2022 3:06am Advance Directive Response Recorded Date/ Time Name of Medical Power of Typewriter Assembler ? January 04, 2023 11:15am Advance Directives Yes September 16 14 11:11pm Living Will Yes January 04, 2023 11:15am Power of Typewriter Assembler Yes January 04 11:15am Advance Directive Response Recorded Date/ Time Name of Medical Power of Typewriter Assembler Ciarra Roy (spouse), Teddy Roy (son) January 04, 2023 6:23pm Name of Medical Power of Typewriter Assembler ANÍBAL ROY January 21, 2023 8:26am Advance Directives Yes September 16 14 11:11pm Living Will Yes January 21, 2023 8:26am Power of Typewriter Assembler Yes January 21 8:26am Advance Directive Response Recorded Date/ Time Name of Medical Power of Typewriter Assembler Ciarra Roy (spouse), Teddy Roy (son) January 04, 2023 6:23pm Name of Medical Power of Typewriter Assembler Ciarra Roy January 21, 2023 12:23pm Advance Directives Yes September 16 14 11:11pm Living Will Yes January 21, 2023 12:23pm Power of Typewriter Assembler Yes January 21 12:23pm Advance Directive Response Recorded Date/ Time Name of Medical Power of Typewriter Assembler Ciarra Roy (spouse), Teddy Roy (son) January 04, 2023 6:23pm Name of Medical Power of Typewriter Assembler Ciarra Roy (spouse) January 27, 2023 6:04pm Advance Directives Yes September 16 11:11pm Living Will Yes January 27, 2023 6:04pm Power of Typewriter Assembler Yes January 27 6:04pm Name of Medical Power of Typewriter Assembler Ciarra Roy January 21, 2023 12:23pm Advance Directive Response Recorded Date/ Time Name of Medical Power of Typewriter Assembler Ciarra Roy (spouse), Teddy Roy (son) January 04, 2023 6:23pm Name of Medical Power of Typewriter Assembler Ciarra Roy January 27, 2023 9:40pm Name of Medical Power of Typewriter Assembler Ciarra Robison, February 10, 2023 9:27pm Advance Directives Yes September 16 14 11:11pm Living Will Yes February 10, 2023 9:27pm Power of Typewriter Assembler Yes February 10 9:27pm Name of Medical Power of Typewriter Assembler Ciarra Roy January 21, 2023 12:23pm Advance Directive Response Recorded Date/ Time Name of Medical Power of Typewriter Assembler Ciarra Roy (spouse), Teddy Roy (son) January 04, 2023 6:23pm Name of Medical Power of Typewriter Assembler Ciarra Regant January 27, 2023 9:40pm Name of Medical Power of Typewriter Assembler Ciarra Robison, February 10, 2023 9:27pm Name of Medical Power of Typewriter Assembler RICHARDCiarra Crooks, February 11, 2023 4:25pm Advance Directives Yes September 16 11:11pm Living Will Yes February 11, 2023 4:25pm Power of Typewriter Assembler Yes February 11 4:25pm Name of Medical Power of Typewriter Assembler Ciarra Regant January 21, 2023 12:23pm Advance Directive Response Recorded Date/ Time Name of Medical Power of Typewriter Assembler Ciarra Roy (spouse), Teddy Roy (son) January 04, 2023 6:23pm Name of Medical Power of Typewriter Assembler Ciarra Regant January 27, 2023 9:40pm Name of Medical Power of Typewriter Assembler Ciarra Robison, February 10, 2023 9:27pm Name of Medical Power of Typewriter Assembler RICHARDDakshaArthurel, February 11, 2023 8:40pm Advance Directives Yes September 16 11:11pm Living Will Yes February 11, 2023 8:40pm Power of Typewriter Assembler Yes February 11 8:40pm Name of Medical Power of Typewriter Assembler Ciarra Roy January 21, 2023 12:23pm Advance Directive Response Recorded Date/ Time Name of Medical Power of Typewriter Assembler Ciarra Roy January 27, 2023 9:40pm Name of Medical Power of Typewriter Assembler Ciarra Robison, February 10, 2023 9:27pm Name of Medical Power of Typewriter Assembler RICHARDCiarra Crooks, w david February 11, 2023 8:40pm Advance Directives Yes September 16 11:11pm Living Will Yes February 11, 2023 8:40pm Power of Typewriter Assembler Yes February 11 8:40pm Name of Medical Power of Typewriter Assembler Ciarra Roy January 21, 2023 12:23pm Advance Directive Response Recorded Date/ Time Name of Medical Power of Typewriter Assembler Ciarra Roy January 27, 2023 8:40pm Name of Medical Power of Typewriter Assembler Ciarra Robison, February 10, 2023 8:27pm Name of Medical Power of Typewriter Assembler Ciarra MEEKS, w david February 11, 2023 7:40pm Advance Directives Yes September 16 10:11pm Living Will Yes February 11, 2023 7:40pm Power of Typewriter Assembler Yes February 11 7:40pm Name of Medical Power of Typewriter Assembler Ciarra Roy January 21, 2023 11:23am Advance Directive Response Recorded Date/ Time Name of Medical Power of Typewriter Assembler Ciarra Roy January 27, 2023 8:40pm Name of Medical Power of Typewriter Assembler Ciarra Robison, February 10, 2023 8:27pm Name of Medical Power of Typewriter Assembler Ciarra MEEKS, w david February 11, 2023 7:40pm Advance Directives Yes September 16 10:11pm Living Will No May 30 023 11:36am Power of Typewriter Assembler No May 30, 2023 11:36am Advance Directive Response Recorded Date/ Time Advance Directives Yes September 16 10:11pm Living Will No May 30 023 11:36am Power of Typewriter Assembler No May 30, 2023 11:36am Advance Directive Response Recorded Date/ Time Advance Directives Yes September 16 11:11pm Living Will No May 30 12:36pm Power of Typewriter Assembler No May 30, 2023 12:36pm Advance Directive [...] day post implant check RECURRENT GI BLEED LONG TERM LABWORK AMS BACTEREMIA, CYSTITIS Urinary tract infection [...] day post implant check RECURRENT GI BLEED LONG TERM LABWORK AMS LAB WORK BACTEREMIA, CYSTITIS Urinary tract infection BACTEREMIA, CYSTITIS BACTEREMIA, CYSTITIS LAB WORK LAB WORK 1 wk wound check LABWORK LABWORK LABWORK LABWORK LABWORK LONG TERM LABWORK LABWORK 6 wk post PPM implant [...] day post implant check RECURRENT GI BLEED LONG TERM LABWORK AMS LAB WORK BACTEREMIA, CYSTITIS Urinary tract infection BACTEREMIA, CYSTITIS BACTEREMIA, CYSTITIS LAB WORK LAB WORK 1 wk wound check LABWORK LABWORK LABWORK LABWORK LABWORK LONG TERM LABWORK LABWORK 6 wk post PPM implant f/u / KR @ 2p S/P PACER IMPLANT 6 wk fu / NAA @ 1:30 LABWORK LONG TERM LAB WORK LONG TERM LABWORK LONG TERM LAB WORK Reason for Visit Confusion Weakness [...] day post implant check RECURRENT GI BLEED LONG TERM LABWORK AMS LAB WORK BACTEREMIA, CYSTITIS Urinary tract infection BACTEREMIA, CYSTITIS BACTEREMIA, CYSTITIS LAB WORK LAB WORK 1 wk wound check LABWORK LABWORK LABWORK LABWORK LABWORK LONG TERM LABWORK LABWORK 6 wk post PPM implant f/u / KR @ 2p S/P PACER IMPLANT 6 wk fu / NAA @ 1:30 LABWORK LONG TERM LAB WORK LONG TERM LABWORK LONG TERM LAB WORK LONG TERM LAB WORK Reason for Visit Confusion Weakness [...] day post implant check RECURRENT GI BLEED LONG TERM LABWORK AMS LAB WORK BACTEREMIA, CYSTITIS Urinary tract infection BACTEREMIA, CYSTITIS BACTEREMIA, CYSTITIS LAB WORK LAB WORK 1 wk wound check LABWORK LABWORK LABWORK LABWORK LABWORK LONG TERM LABWORK LABWORK 6 wk post PPM implant f/u / KR @ 2p S/P PACER IMPLANT 6 wk fu / NAA @ 1:30 LABWORK LONG TERM LAB WORK LONG TERM LABWORK LONG TERM LAB WORK LONG TERM LAB WORK LABWORK Reason for Visit Acute [...] day post implant check RECURRENT GI BLEED LONG TERM LABWORK AMS LAB WORK BACTEREMIA, CYSTITIS Urinary tract infection BACTEREMIA, CYSTITIS BACTEREMIA, CYSTITIS LAB WORK LAB WORK 1 wk wound check LABWORK LABWORK LABWORK LABWORK LABWORK LONG TERM LABWORK LABWORK 6 wk post PPM implant f/u / KR @ 2p S/P PACER IMPLANT 6 wk fu / NAA @ 1:30 LABWORK LONG TERM LAB WORK LONG TERM LABWORK LONG TERM LAB WORK LONG TERM LAB WORK LABWORK LABWORK Reason for Visit [...] day post implant check RECURRENT GI BLEED LONG TERM LABWORK AMS LAB WORK BACTEREMIA, CYSTITIS Urinary tract infection BACTEREMIA, CYSTITIS BACTEREMIA, CYSTITIS LAB WORK LAB WORK 1 wk wound check LABWORK LABWORK LABWORK LABWORK LABWORK LONG TERM LABWORK LABWORK 6 wk post PPM implant f/u / KR @ 2p S/P PACER IMPLANT 6 wk fu / NAA @ 1:30 LABWORK LONG TERM LAB WORK LONG TERM LABWORK LONG TERM LAB WORK LONG TERM LAB WORK LABWORK LABWORK LONG TERM LAB WORK Reason for Visit HTN (hypertension) [...] day post implant check RECURRENT GI BLEED LONG TERM LABWORK AMS LAB WORK BACTEREMIA, CYSTITIS Urinary tract infection BACTEREMIA, CYSTITIS BACTEREMIA, CYSTITIS LAB WORK LAB WORK 1 wk wound check LABWORK LABWORK LABWORK LABWORK LABWORK LONG TERM LABWORK LABWORK 6 wk post PPM implant f/u / KR @ 2p S/P PACER IMPLANT 6 wk fu / NAA @ 1:30 LABWORK LONG TERM LAB WORK LONG TERM LABWORK LONG TERM LAB WORK LONG TERM LAB WORK LABWORK LABWORK LONG TERM LAB WORK Reason for Visit HTN (hypertension) [...] II Chief Complaint LABWORK LABWORK LABWORK LABWORK LONG TERM LABWORK LABWORK 6 wk post PPM implant f/u / KR @ 2p S/P PACER IMPLANT 6 wk fu / NAA @ 1:30 LABWORK LONG TERM LAB WORK LONG TERM LABWORK LONG TERM LAB WORK LONG TERM LAB WORK LABWORK LABWORK LONG TERM LAB WORK LABWORK Reason for Visit Presence of cardiac pacemaker Syncope Second degree AV block, Mobitz type II Sick sinus syndrome Atrial fibrillation HLD (hyperlipidemia) Presence of cardiac pacemaker HTN (hypertension) Second degree AV block, Mobitz type II Chief Complaint LABWORK LONG TERM LABWORK LABWORK 6 wk post PPM implant f/u / KR @ 2p S/P PACER IMPLANT 6 wk fu / NAA @ 1:30 LABWORK LONG TERM LAB WORK LONG TERM LABWORK LONG TERM LAB WORK LONG TERM LAB WORK LABWORK LABWORK LONG TERM LAB WORK LONG TERM LAB WORK LABWORK LABWORK Reason for Visit Presence of cardiac pacemaker Syncope Second degree AV block, Mobitz type II Sick sinus syndrome Atrial fibrillation HLD (hyperlipidemia) Presence of cardiac pacemaker HTN (hypertension) Second degree AV block, Mobitz type II Chief Complaint LONG TERM LABWORK LABWORK 6 wk post PPM implant f/u / KR @ 2p S/P PACER IMPLANT 6 wk fu / NAA @ 1:30 LABWORK LONG TERM LAB WORK LONG TERM LABWORK LONG TERM LAB WORK LONG TERM LAB WORK LABWORK LABWORK LONG TERM LAB WORK LONG TERM LAB WORK LABWORK LONG TERM LAB WORK LABWORK Reason for Visit Presence of cardiac pacemaker Syncope Second degree AV block, Mobitz type II Sick sinus syndrome Atrial fibrillation HLD (hyperlipidemia) Presence of cardiac pacemaker HTN (hypertension) Second degree AV block, Mobitz type II Chief Complaint LABWORK 6 wk post PPM implant f/u / KR @ 2p S/P PACER IMPLANT 6 wk fu / NAA @ 1:30 LABWORK LONG TERM LAB WORK LONG TERM LABWORK LONG TERM LAB WORK LONG TERM LAB WORK LABWORK LABWORK LONG TERM LAB WORK LONG TERM LAB WORK LABWORK LONG TERM LAB WORK LABWORK LABWORK Reason for Visit Presence of cardiac pacemaker Syncope Second degree AV block, Mobitz type II Sick sinus syndrome Atrial fibrillation HLD (hyperlipidemia) Presence of cardiac pacemaker HTN (hypertension) Second degree AV block, Mobitz type II Chief Complaint LABWORK 6 wk post PPM implant f/u / KR @ 2p S/P PACER IMPLANT 6 wk fu / NAA @ 1:30 LABWORK LONG TERM LAB WORK LONG TERM LABWORK LONG TERM LAB WORK LONG TERM LAB WORK LABWORK LABWORK LONG TERM LAB WORK LONG TERM LAB WORK LABWORK LONG TERM LAB WORK LONG TERM LABWORK LABWORK LABWORK Reason for Visit Presence of cardiac pacemaker Syncope Second degree AV block, Mobitz type II Sick sinus syndrome Atrial fibrillation HLD (hyperlipidemia) Presence of cardiac pacemaker HTN (hypertension) Second degree AV block, Mobitz type II Chief Complaint 6 wk post PPM implan t f/u / KR @ 2p S/P PACER IMPLANT 6 wk fu / NAA @ 1:30 LABWORK LONG TERM LAB WORK LONG TERM LABWORK LONG TERM LAB WORK LONG TERM LAB WORK LABWORK LABWORK LONG TERM LAB WORK LONG TERM LAB WORK LABWORK LONG TERM LAB WORK LONG TERM LABWORK LABWORK LONG TERM LAB WORK LABWORK Reason for Visit Presence of cardiac pacemaker Syncope Second degree AV block, Mobitz type II Sick sinus syndrome Atrial fibrillation HLD (hyperlipidemia) Presence of cardiac pacemaker HTN (hypertension) Second degree AV block, Mobitz type II Chief Complaint LABWORK LONG TERM LAB WORK LONG TERM LABWORK LONG TERM LAB WORK LONG TERM LAB WORK LABWORK LABWORK LONG TERM LAB WORK LONG TERM LAB WORK LABWORK LONG TERM LAB WORK LONG TERM LABWORK LABWORK LONG TERM LAB WORK LABWORK LABWORK LABWORK Chief Complaint LONG TERM LAB WOR K LONG TERM LABWORK LONG TERM LAB WORK LONG TERM LAB WORK LABWORK LABWORK LONG TERM LAB WORK LONG TERM LAB WORK LABWORK LONG TERM LAB WORK LONG TERM LABWORK LABWORK LONG TERM LAB WORK LABWORK LABWORK LABWORK LABWORK Chief Complaint LONG TERM LAB WOR K LONG TERM LAB WORK LABWORK LABWORK LONG TERM LAB WORK LONG TERM LAB WORK LABWORK LONG TERM LAB WORK LONG TERM LABWORK LABWORK LONG TERM LAB WORK LABWORK LONG TERM LAB WORK LABWORK LABWORK LABWORK Chief Complaint LONG TERM LAB WOR K LABWORK LABWORK LONG TERM LAB WORK LONG TERM LAB WORK LABWORK LONG TERM LAB WORK LONG TERM LABWORK LABWORK LONG TERM LAB WORK LABWORK LONG TERM LAB WORK LABWORK LABWORK LABWORK LABWORK Chief Complaint LONG TERM LAB WOR K LABWORK LABWORK LONG TERM LAB WORK LONG TERM LAB WORK LABWORK LONG TERM LAB WORK LONG TERM LABWORK LABWORK LONG TERM LAB WORK LABWORK LONG TERM LAB WORK LABWORK LABWORK LABWORK LONG TERM LABWORK LABWORK Chief Complaint LABWORK LABWORK LONG TERM LAB WORK LONG TERM LAB WORK LABWORK LONG TERM LAB WORK LONG TERM LABWORK LABWORK LONG TERM LAB WORK LABWORK LONG TERM LAB WORK LABWORK LABWORK LABWORK LONG TERM LABWORK LABWORK LABWORK Chief Complaint LABWORK LONG TERM LAB WORK LONG TERM LAB WORK LABWORK LONG TERM LAB WORK LONG TERM LABWORK LABWORK LONG TERM LAB WORK LABWORK LONG TERM LAB WORK LABWORK LABWORK LABWORK LONG TERM LABWORK LABWORK LABWORK LABWORK Chief Complaint LONG TERM LAB WOR K LONG TERM LAB WORK LABWORK LONG TERM LAB WORK LONG TERM LABWORK LABWORK LONG TERM LAB WORK LABWORK LONG TERM LAB WORK LABWORK LABWORK LABWORK LONG TERM LABWORK LABWORK LABWORK LABWORK LABWORK Chief Complaint LONG TERM LAB WOR K LABWORK LONG TERM LAB WORK LONG TERM LABWORK LABWORK LONG TERM LAB WORK LABWORK LONG TERM LAB WORK LABWORK LABWORK LABWORK LONG TERM LABWORK LABWORK LABWORK LABWORK LABWORK LABWORK Chief Complaint LONG TERM LAB WOR K LABWORK LONG TERM LAB WORK LONG TERM LABWORK LABWORK LONG TERM LAB WORK LABWORK LONG TERM LAB WORK LABWORK LABWORK LABWORK LONG TERM LABWORK LABWORK LABWORK LABWORK LABWORK LABWORK LABWORK Chief Complaint LONG TERM LAB WOR K LABWORK LONG TERM LAB WORK LONG TERM LABWORK LABWORK LONG TERM LAB WORK LABWORK LONG TERM LAB WORK LABWORK LABWORK LABWORK LONG TERM LABWORK LABWORK LABWORK LABWORK LABWORK LABWORK LABWORK LABWORK Chief Complaint LONG TERM LAB WOR K LABWORK LONG TERM LAB WORK LONG TERM LABWORK LABWORK LONG TERM LAB WORK LABWORK LONG TERM LAB WORK LABWORK LABWORK LABWORK LONG TERM LABWORK LABWORK LABWORK LABWORK LABWORK LABWORK LABWORK LONG TERM LAB WORK LABWORK Chief Complaint LONG TERM LAB WOR K LABWORK LONG TERM LAB WORK LONG TERM LABWORK LABWORK LONG TERM LAB WORK LABWORK LONG TERM LAB WORK LABWORK LABWORK LABWORK LONG TERM LABWORK LABWORK LABWORK LABWORK LABWORK LABWORK LABWORK LONG TERM LAB WORK LABWORK LABWORK 6 M FU Chief Complaint LONG TERM LAB WOR K LONG TERM LABWORK LABWORK LONG TERM LAB WORK LABWORK LONG TERM LAB WORK LABWORK LABWORK LABWORK LONG TERM LABWORK LABWORK LABWORK LABWORK LABWORK LABWORK LABWORK LONG TERM LAB WORK LABWORK LABWORK LABWORK 6 M FU Reason for Visit Atrial fibrillation HLD (hyperlipidemia) Presence of cardiac pacemaker HTN (hypertension) Second degree AV block, Mobitz type II Chief Complaint LONG TERM LABWORK LABWORK LONG TERM LAB WORK LABWORK LONG TERM LAB WORK LABWORK LABWORK LABWORK LONG TERM LABWORK LABWORK LABWORK LABWORK LABWORK LABWORK LABWORK LONG TERM LAB WORK LABWORK LABWORK LABWORK 6 M FU LONG TERM LAB WORK Reason for Visit Atrial fibrillation HLD (hyperlipidemia) Presence of cardiac pacemaker HTN (hypertension) Second degree AV block, Mobitz type II Chief Complaint LONG TERM LAB WOR K LABWORK LONG TERM LAB WORK LABWORK LABWORK LABWORK LONG TERM LABWORK LABWORK LABWORK LABWORK LABWORK LABWORK LABWORK LONG TERM LAB WORK LABWORK LABWORK LABWORK 6 M FU LABWORK LONG TERM LAB WORK Reason for Visit Atrial fibrillation HLD (hyperlipidemia) Presence of cardiac pacemaker HTN (hypertension) Second degree AV block, Mobitz type II Chief Complaint LABWORK LABWORK LONG TERM LABWORK LABWORK 6 wk post PPM implant f/u / KR @ 2p S/P PACER IMPLANT 6 wk fu / NAA @ 1:30 LABWORK LONG TERM LAB WORK LONG TERM LABWORK LONG TERM LAB WORK LONG TERM LAB WORK LABWORK LABWORK LONG TERM LAB WORK LONG TERM LAB WORK LABWORK Reason for Visit Presence of cardiac pacemaker Syncope Second degree AV block, Mobitz type II Sick sinus syndrome Atrial fibrillation HLD (hyperlipidemia) Presence of cardiac pacemaker HTN (hypertension) Second degree AV block, Mobitz type II Chief Complaint Admit Date LONG TERM LAB WORK July 01 4:00am LONG TERM LAB WORK July 07 5:00am LABWORK July 27, 2024 5 :00am LONG TERM LAB WORK August 04, 2024 5:00am LONG TERM LAB WORK September 29, 2024 4 :00am [...] 2024 1:0 9pm Chief Complaint Admit Date LONG TERM LAB WORK July 01 4:00am LONG TERM LAB WORK July 07 5:00am LABWORK July 27, 2024 5 :00am LONG TERM LAB WORK August 04, 2024 5:00am LONG TERM LAB WORK September 29, 2024 4 :00am LONG TERM LAB WORK October 05, 2024 5 :00am [...] Diagnoses Driving safety issue Procedures CONSULT TO DINKEY ENGINEER OCCUPATIONAL THERAPY EVAL HIGH COMPLEX 60 MINS Jojo Kaur MD [address] [place] [address] [facility] [place] [address] Referral ID Status Reason Start Date Expiration Date Visits Requested Visits Authorized [id number] Authorized PCP Requested Referral Auto-Generate d Referral 09/07/2022 09/07/2023 99 99 Specialty Diagnoses / Procedures Referred By Linn carrillo Referred To Contact [facility] Diagnoses Polyneuropathy Procedures CONSULT TO PHYSICAL THERAPY PHYSICAL THERAPY EVALUATION HIGH COMPLEX 45 MINS Jojo Kaur MD [address] [place] [address] [facility] [address] [address] Referral ID Status Reason Start Date Expiration Date Visits Requested Visits Authorized [id number] Authorized PCP Requested Referral Auto-Generate d Referral 04/17/2022 04/17/2023 99 99 Specialty Diagnoses / Procedures Referred By Contac t Referred To Contact Psychology Diagnoses Generalized anxiety disorder Procedures CONSULT TO PSYCHOLOGY OFFICE/OUTPATIENT [facility] 60-74 MINUTES Jojo Kaur MD [address] [place] [address] Referral ID Status Reason Start Date Expiration Date Visits Requested Visits Authorized [id number] Pending Review PCP Requested Referral 04/17/2022 04/17/2023 1 1 Specialty Diagnoses / Procedures Referred By Contac t Referred To Contact Podiatry Diagnoses Type 2 diabetes mellitus with diabetic neuropathy, with long-term current use of insulin ([facility]) Procedures CONSULT TO PODIATRY OFFICE/OUTPATIENT [facility] 60-74 MINUTES PodlogRoselia hernandez APRN.SLEEP TECHNOLOGIST [address] [place] [address] Referral ID Status Reason Start Date Expiration Date Visits Requested Visits Authorized [id number] Authorized PCP Requested Referral 01/12/2022 01/11/2023 1 1 Specialty Diagnoses / Procedures Referred By Contac t Referred To Contact [facility] Diagnoses Altered mental status, unspecified altered mental status type Procedures CONSULT TO SPEECH THERAPY OFFICE/OUTPATIENT [facility] 60-74 MINUTES Jojo Kaur MD [address] [place] [id number] [facility] [place] [address] [place] [id number] Referral ID Status Reason Start Date Expiration Date Visits Requested Visits Authorized [id number] Authorized Auto-Generat ed Referral 01/05/2022 01/05/2023 99 99 Specialty Diagnoses / Procedures Referred By Contac t Referred To Contact [facility] Diagnoses Abnormality of gait due to impairment of balance Procedures CONSULT TO PHYSICAL THERAPY PHYSICAL THERAPY EVALUATION HIGH COMPLEX 45 MINS Jojo Kaur MD [address] [place] [address] [facility] [address] [place] [id number] Referral ID Status Reason Start Date Expiration Date Visits Requested Visits Authorized [id number] Authorized PCP Requested Referral Auto-Generate d Referral 01/05/2022 01/05/2023 99 99 Specialty Diagnoses / Procedures Referred By Contac t Referred To Contact [facility] Diagnoses Altered mental status, unspecified altered mental status type Procedures EPIL EEG ROUTINE ELECTROENCEPHALOGRAM REC COMA/SLEEP ONLY Jojo Kaur MD [address] [place] [address] [facility] [address] [place], [place] [id number] Referral ID Status Reason Start Date Expiration Date Visits Requested Visits Authorized [id number] Authorized Auto-Generat ed Referral 01/05/2022 01/05/2023 1 1 Specialty Diagnoses / Procedures Referred By Contac t Referred To Contact Neurology Diagnoses Altered mental status, unspecified altered mental status type Procedures CONSULT TO NEUROLOGY OFFICE/OUTPATIENT [facility] 60-74 MINUTES Abdulaziz Caldera MD [address] [place] [address] Referral ID Status Reason Start Date Expiration Date Visits Requested Visits Authorized [id number] Authorized PCP Requested Referral 01/01/2022 01/01/2023 1 1 Summary Purpose Additional Source Comments Source Comments (unrecognize d section and content) In the event this informatio n is protected by the Federal Confidentiality of Alcohol and Drug Abuse Patient Records regulations: The Federal rules restrict any use of the information to criminally investigate or prosecute any alcohol or drug abuse patient.[facility] the event this information is protected by the Federal Confidentiality of Alcohol and Drug Abuse Patient Records regulations: The Federal rules restrict any use of the information to criminally investigate or prosecute any alcohol or drug abuse patient.[facility] the event this information is protected by the Federal Confidentiality of Alcohol and Drug Abuse Patient Records regulations: The Federal rules restrict any use of the information to criminally investigate or prosecute any alcohol or drug abuse patient.[facility] the event this information is protected by the Federal Confidentiality of Alcohol and Drug Abuse Patient Records regulations: The Federal rules restrict any use of the information to criminally investigate or prosecute any alcohol or drug abuse patient.[facility] the event this information is protected by the Federal Confidentiality of Alcohol and Drug Abuse Patient Records regulations: The Federal rules restrict any use of the information to criminally investigate or prosecute any alcohol or drug abuse patient.[facility] the event this information is protected by the Federal Confidentiality of Alcohol and Drug Abuse Patient Records regulations: The Federal rules restrict any use of the information to criminally investigate or prosecute any alcohol or drug abuse patient.[facility] the event this information is protected by the Federal Confidentiality of Alcohol and Drug Abuse Patient Records regulations: The Federal rules restrict any use of the information to criminally investigate or prosecute any alcohol or drug abuse patient.[facility] the event this information is protected by the Federal Confidentiality of Alcohol and Drug Abuse Patient Records regulations: The Federal rules restrict any use of the information to criminally investigate or prosecute any alcohol or drug abuse patient.[facility] the event this information is protected by the Federal Confidentiality of Alcohol and Drug Abuse Patient Records regulations: The Federal rules restrict any use of the information to criminally investigate or prosecute any alcohol or drug abuse patient.[facility] the event this information is protected by the Federal Confidentiality of Alcohol and Drug Abuse Patient Records regulations: The Federal rules restrict any use of the information to criminally investigate or prosecute any alcohol or drug abuse patient.[facility] the event this information is protected by the Federal Confidentiality of Alcohol and Drug Abuse Patient Records regulations: The Federal rules restrict any use of the information to criminally investigate or prosecute any alcohol or drug abuse patient.[facility] the event this information is protected by the Federal Confidentiality of Alcohol and Drug Abuse Patient Records regulations: The Federal rules restrict any use of the information to criminally investigate or prosecute any alcohol or drug abuse patient.[facility] the event this information is protected by the Federal Confidentiality of Alcohol and Drug Abuse Patient Records regulations: The Federal rules restrict any use of the information to criminally investigate or prosecute any alcohol or drug abuse patient.[facility]In the event this information is protected by the Federal Confidentiality of Alcohol and Drug Abuse Patient Records regulations: The Federal rules restrict any use of the information to criminally investigate or prosecute any alcohol or drug abuse patient.[facility] the event this information is protected by the Federal Confidentiality of Alcohol and Drug Abuse Patient Records regulations: The Federal rules restrict any use of the information to criminally investigate or prosecute any alcohol or drug abuse patient.[facility] the event this information is protected by the Federal Confidentiality of Alcohol and Drug Abuse Patient Records regulations: The Federal rules restrict any use of the information to criminally investigate or prosecute any alcohol or drug abuse patient.[facility] the event this information is protected by the Federal Confidentiality of Alcohol and Drug Abuse Patient Records regulations: The Federal rules restrict any use of the information to criminally investigate or prosecute any alcohol or drug abuse patient.[facility] the event this information is protected by the Federal Confidentiality of Alcohol and Drug Abuse Patient Records regulations: The Federal rules restrict any use of the information to criminally investigate or prosecute any alcohol or drug abuse patient.[facility] the event this information is protected by the Federal Confidentiality of Alcohol and Drug Abuse Patient Records regulations: The Federal rules restrict any use of the information to criminally investigate or prosecute any alcohol or drug abuse patient.[facility]In the event this information is protected by the Federal Confidentiality of Alcohol and Drug Abuse Patient Records regulations: The Federal rules restrict any use of the information to criminally investigate or prosecute any alcohol or drug abuse patient.[facility] the event this information is protected by the Federal Confidentiality of Alcohol and Drug Abuse Patient Records regulations: The Federal rules restrict any use of the information to criminally investigate or prosecute any alcohol or drug abuse patient.[facility] the event this information is protected by the Federal Confidentiality of Alcohol and Drug Abuse Patient Records regulations: The Federal rules restrict any use of the information to criminally investigate or prosecute any alcohol or drug abuse patient.[facility] the event this information is protected by the Federal Confidentiality of Alcohol and Drug Abuse Patient Records regulations: The Federal rules restrict any use of the information to criminally investigate or prosecute any alcohol or drug abuse patient.[facility] the event this information is protected by the Federal Confidentiality of Alcohol and Drug Abuse Patient Records regulations: The Federal rules restrict any use of the information to criminally investigate or prosecute any alcohol or drug abuse patient.[facility]In the event this information is protected by the Federal Confidentiality of Alcohol and Drug Abuse Patient Records regulations: The Federal rules restrict any use of the information to criminally investigate or prosecute any alcohol or drug abuse patient.[facility]In the event this information is protected by the Federal Confidentiality of Alcohol and Drug Abuse Patient Records regulations: The Federal rules restrict any use of the information to criminally investigate or prosecute any alcohol or drug abuse patient.[facility]In the event this information is protected by the Federal Confidentiality of Alcohol and Drug Abuse Patient Records regulations: The Federal rules restrict any use of the information to criminally investigate or prosecute any alcohol or drug abuse patient.[facility]In the event this information is protected by the Federal Confidentiality of Alcohol and Drug Abuse Patient Records regulations: The Federal rules restrict any use of the information to criminally investigate or prosecute any alcohol or drug abuse patient.[facility]In the event this information is protected by the Federal Confidentiality of Alcohol and Drug Abuse Patient Records regulations: The Federal rules restrict any use of the information to criminally investigate or prosecute any alcohol or drug abuse patient.[facility]In the event this information is protected by the Federal Confidentiality of Alcohol and Drug Abuse Patient Records regulations: The Federal rules restrict any use of the information to criminally investigate or prosecute any alcohol or drug abuse patient.[facility]In the event this information is protected by the Federal Confidentiality of Alcohol and Drug Abuse Patient Records regulations: The Federal rules restrict any use of the information to criminally investigate or prosecute any alcohol or drug abuse patient.[facility] the event this information is protected by the Federal Confidentiality of Alcohol and Drug Abuse Patient Records regulations: The Federal rules restrict any use of the information to criminally investigate or prosecute any alcohol or drug abuse patient.[facility] the event this information is protected by the Federal Confidentiality of Alcohol and Drug Abuse Patient Records regulations: The Federal rules restrict any use of the information to criminally investigate or prosecute any alcohol or drug abuse patient.[facility] WestIn the event this information is protected by the Federal Confidentiality of Alcohol and Drug Abuse Patient Records regulations: The Federal rules restrict any use of the information to criminally investigate or prosecute any alcohol or drug abuse patient.[facility] WestIn the event this information is protected by the Federal Confidentiality of Alcohol and Drug Abuse Patient Records regulations: The Federal rules restrict any use of the information to criminally investigate or prosecute any alcohol or drug abuse patient.[facility] WestIn the event this information is protected by the Federal Confidentiality of Alcohol and Drug Abuse Patient Records regulations: The Federal rules restrict any use of the information to criminally investigate or prosecute any alcohol or drug abuse patient.[facility] WestIn the event this information is protected by the Federal Confidentiality of Alcohol and Drug Abuse Patient Records regulations: The Federal rules restrict any use of the information to criminally investigate or prosecute any alcohol or drug abuse patient.[facility] WestIn the event this information is protected by the Federal Confidentiality of Alcohol and Drug Abuse Patient Records regulations: The Federal rules restrict any use of the information to criminally investigate or prosecute any alcohol or drug abuse patient.[facility] WestIn the event this information is protected by the Federal Confidentiality of Alcohol and Drug Abuse Patient Records regulations: The Federal rules restrict any use of the information to criminally investigate or prosecute any alcohol or drug abuse patient.[facility] WestIn the event this information is protected by the Federal Confidentiality of Alcohol and Drug Abuse Patient Records regulations: The Federal rules restrict any use of the information to criminally investigate or prosecute any alcohol or drug abuse patient.[facility] WestIn the event this information is protected by the Federal Confidentiality of Alcohol and Drug Abuse Patient Records regulations: The Federal rules restrict any use of the information to criminally investigate or prosecute any alcohol or drug abuse patient.[facility] WestIn the event this information is protected by the Federal Confidentiality of Alcohol and Drug Abuse Patient Records regulations: The Federal rules restrict any use of the information to criminally investigate or prosecute any alcohol or drug abuse patient.[facility] WestIn the event this information is protected by the Federal Confidentiality of Alcohol and Drug Abuse Patient Records regulations: The Federal rules restrict any use of the information to criminally investigate or prosecute any alcohol or drug abuse patient.[facility] WestIn the event this information is protected by the Federal Confidentiality of Alcohol and Drug Abuse Patient Records regulations: The Federal rules restrict any use of the information to criminally investigate or prosecute any alcohol or drug abuse patient.[facility] WestIn the event this information is protected by the Federal Confidentiality of Alcohol and Drug Abuse Patient Records regulations: The Federal rules restrict any use of the information to criminally investigate or prosecute any alcohol or drug abuse patient.[facility] WestIn the event this information is protected by the Federal Confidentiality of Alcohol and Drug Abuse Patient Records regulations: The Federal rules restrict any use of the information to criminally investigate or prosecute any alcohol or drug abuse patient.[facility] WestIn the event this information is protected by the Federal Confidentiality of Alcohol and Drug Abuse Patient Records regulations: The Federal rules restrict any use of the information to criminally investigate or prosecute any alcohol or drug abuse patient.[facility] WestIn the event this information is protected by the Federal Confidentiality of Alcohol and Drug Abuse Patient Records regulations: The Federal rules restrict any use of the information to criminally investigate or prosecute any alcohol or drug abuse patient.[facility] WestIn the event this information is protected by the Federal Confidentiality of Alcohol and Drug Abuse Patient Records regulations: The Federal rules restrict any use of the information to criminally investigate or prosecute any alcohol or drug abuse patient.[facility] WestIn the event this information is protected by the Federal Confidentiality of Alcohol and Drug Abuse Patient Records regulations: The Federal rules restrict any use of the information to criminally investigate or prosecute any alcohol or drug abuse patient.[facility] WestIn the event this information is protected by the Federal Confidentiality of Alcohol and Drug Abuse Patient Records regulations: The Federal rules restrict any use of the information to criminally investigate or prosecute any alcohol or drug abuse patient.[facility] WestIn the event this information is protected by the Federal Confidentiality of Alcohol and Drug Abuse Patient Records regulations: The Federal rules restrict any use of the information to criminally investigate or prosecute any alcohol or drug abuse patient.[facility] WestIn the event this information is protected by the Federal Confidentiality of Alcohol and Drug Abuse Patient Records regulations: The Federal rules restrict any use of the information to criminally investigate or prosecute any alcohol or drug abuse patient.[facility] WestIn the event this information is protected by the Federal Confidentiality of Alcohol and Drug Abuse Patient Records regulations: The Federal rules restrict any use of the information to criminally investigate or prosecute any alcohol or drug abuse patient.[facility] WestIn the event this information is protected by the Federal Confidentiality of Alcohol and Drug Abuse Patient Records regulations: The Federal rules restrict any use of the information to criminally investigate or prosecute any alcohol or drug abuse patient.[facility] WestIn the event this information is protected by the Federal Confidentiality of Alcohol and Drug Abuse Patient Records regulations: The Federal rules restrict any use of the information to criminally investigate or prosecute any alcohol or drug abuse patient.[facility] WestIn the event this information is protected by the Federal Confidentiality of Alcohol and Drug Abuse Patient Records regulations: The Federal rules restrict any use of the information to criminally investigate or prosecute any alcohol or drug abuse patient.[facility] WestIn the event this information is protected by the Federal Confidentiality of Alcohol and Drug Abuse Patient Records regulations: The Federal rules restrict any use of the information to criminally investigate or prosecute any alcohol or drug abuse patient.[facility] WestIn the event this information is protected by the Federal Confidentiality of Alcohol and Drug Abuse Patient Records regulations: The Federal rules restrict any use of the information to criminally investigate or prosecute any alcohol or drug abuse patient.[facility] WestIn the event this information is protected by the Federal Confidentiality of Alcohol and Drug Abuse Patient Records regulations: The Federal rules restrict any use of the information to criminally investigate or prosecute any alcohol or drug abuse patient.[facility] WestIn the event this information is protected by the Federal Confidentiality of Alcohol and Drug Abuse Patient Records regulations: The Federal rules restrict any use of the information to criminally investigate or prosecute any alcohol or drug abuse patient.[facility] WestIn the event this information is protected by the Federal Confidentiality of Alcohol and Drug Abuse Patient Records regulations: The Federal rules restrict any use of the information to criminally investigate or prosecute any alcohol or drug abuse patient.[facility] WestIn the event this information is protected by the Federal Confidentiality of Alcohol and Drug Abuse Patient Records regulations: The Federal rules restrict any use of the information to criminally investigate or prosecute any alcohol or drug abuse patient.[facility] WestIn the event this information is protected by the Federal Confidentiality of Alcohol and Drug Abuse Patient Records regulations: The Federal rules restrict any use of the information to criminally investigate or prosecute any alcohol or drug abuse patient.[facility] WestIn the event this information is protected by the Federal Confidentiality of Alcohol and Drug Abuse Patient Records regulations: The Federal rules restrict any use of the information to criminally investigate or prosecute any alcohol or drug abuse patient.[facility] WestIn the event this information is protected by the Federal Confidentiality of Alcohol and Drug Abuse Patient Records regulations: The Federal rules restrict any use of the information to criminally investigate or prosecute any alcohol or drug abuse patient.[facility] WestIn the event this information is protected by the Federal Confidentiality of Alcohol and Drug Abuse Patient Records regulations: The Federal rules restrict any use of the information to criminally investigate or prosecute any alcohol or drug abuse patient.[facility] WestIn the event this information is protected by the Federal Confidentiality of Alcohol and Drug Abuse Patient Records regulations: The Federal rules restrict any use of the information to criminally investigate or prosecute any alcohol or drug abuse patient.[facility] WestIn the event this information is protected by the Federal Confidentiality of Alcohol and Drug Abuse Patient Records regulations: The Federal rules restrict any use of the information to criminally investigate or prosecute any alcohol or drug abuse patient.[facility] WestIn the event this information is protected by the Federal Confidentiality of Alcohol and Drug Abuse Patient Records regulations: The Federal rules restrict any use of the information to criminally investigate or prosecute any alcohol or drug abuse patient.[facility] WestIn the event this information is protected by the Federal Confidentiality of Alcohol and Drug Abuse Patient Records regulations: The Federal rules restrict any use of the information to criminally investigate or prosecute any alcohol or drug abuse patient.[facility] WestIn the event this information is protected by the Federal Confidentiality of Alcohol and Drug Abuse Patient Records regulations: The Federal rules restrict any use of the information to criminally investigate or prosecute any alcohol or drug abuse patient.[facility] WestIn the event this information is protected by the Federal Confidentiality of Alcohol and Drug Abuse Patient Records regulations: The Federal rules restrict any use of the information to criminally investigate or prosecute any alcohol or drug abuse patient.[facility] WestIn the event this information is protected by the Federal Confidentiality of Alcohol and Drug Abuse Patient Records regulations: The Federal rules restrict any use of the information to criminally investigate or prosecute any alcohol or drug abuse patient.[facility] WestIn the event this information is protected by the Federal Confidentiality of Alcohol and Drug Abuse Patient Records regulations: The Federal rules restrict any use of the information to criminally investigate or prosecute any alcohol or drug abuse patient.[facility] WestIn the event this information is protected by the Federal Confidentiality of Alcohol and Drug Abuse Patient Records regulations: The Federal rules restrict any use of the information to criminally investigate or prosecute any alcohol or drug abuse patient.[facility] WestIn the event this information is protected by the Federal Confidentiality of Alcohol and Drug Abuse Patient Records regulations: The Federal rules restrict any use of the information to criminally investigate or prosecute any alcohol or drug abuse patient.[facility] WestIn the event this information is protected by the Federal Confidentiality of Alcohol and Drug Abuse Patient Records regulations: The Federal rules restrict any use of the information to criminally investigate or prosecute any alcohol or drug abuse patient.[facility] WestIn the event this information is protected by the Federal Confidentiality of Alcohol and Drug Abuse Patient Records regulations: The Federal rules restrict any use of the information to criminally investigate or prosecute any alcohol or drug abuse patient.[facility] Reason for Visit (unrecogniz ed section and content) Reason Comments PT Discharge Specialty Diagnoses / Procedures Referred By Contac t Referred To Contact [facility] Diagnoses Abnormality of gait due to impairment of balance Procedures CONSULT TO PHYSICAL THERAPY PHYSICAL THERAPY EVALUATION HIGH COMPLEX 45 MINS Jojo Kaur MD [address] [place] [address] [facility] [address] [place] [address] Referral ID Status Reason Start Date Expiration Date Visits Requested Visits Authorized [id number] Authorized PCP Requested Referral Auto-Generate d Referral [...] 6 mo Reason Comments Hospital [facility] discharged Reason Comments Results Reason Comments Consult altered mental statu s Specialty Diagnoses / Procedures Referred By Contac t Referred To Contact Neurology Diagnoses Altered mental status, unspecified altered mental status type Procedures CONSULT TO NEUROLOGY OFFICE/OUTPATIENT NEW HIGH MDM 60-74 MINUTES Abdulaziz Caldera MD [address] [place] [address] Referral ID Status Reason Start Date Expiration Date V isits Requested Visits Authorized [id number] Closed PCP Requested Referral 01/01/2022 01/01/2023 1 [...] Nursing Plan of Care Update Reason Comments [facility] PT POC Reason Comments OT plan of care Reason Onset Date Comments Refill Request 07/25/2022 Reason Comments Home Health-Nursing Update Reason Onset Date Comments Anticoagulation 07/31/2022 Specialty Diagnoses / Procedures Referred By Linn carrillo Referred To Contact Ent - Otolaryngology Diagnoses Chronic frontal sinusitis Procedures CONSULT TO ENT OFFICE/OUTPATIENT NEW HIGH MDM 60-74 MINUTES Abdulaziz Caldera MD [address] [place] [address] Referral ID Status Reason Start Date Expiration Date V isits Requested Visits Authorized [id number] Closed PCP Requested Referral 07/12/2022 07/12/2023 1 [...] Care Teams (unrecognized sec tion and content) Retail Sales Vitamin Consultant Relationship Specialty Start Date End Date Abdulaziz Caldera MD [address] [place] [address] PCP - General Family Practice 11/23/20 Retail Sales Vitamin Consultant Relationship Specialty Start Date End Date Abdulaziz Caldera MD [address] [place] [address] PCP - General Family Practice 11/23/20 Retail Sales Vitamin Consultant Relationship Specialty Start Date End Date Abdulaziz Caldera MD [address] [place] [address] PCP - General Family Practice 11/23/20 Retail Sales Vitamin Consultant Relationship Specialty Start Date End Date Abdulaziz Caldera MD [address] [place] [address] PCP - General Family Practice 11/23/20 Retail Sales Vitamin Consultant Relationship Specialty Start Date End Date Abdulaziz Caldera MD [address] [place] [address] PCP - General Family Practice 11/23/20 Retail Sales Vitamin Consultant Relationship Specialty Start Date End Date Abdulaziz Caldera MD [address] [place] [address] PCP - General Family Practice 11/23/20 Retail Sales Vitamin Consultant Relationship Specialty Start Date End Date bAdulaziz Caldera MD [address] [place] [address] PCP - General Family Practice 11/23/20 Retail Sales Vitamin Consultant Relationship Specialty Start Date End Date Abdulaziz Caldera MD [address] [place] [address] PCP - General Family Practice 11/23/20 Retail Sales Vitamin Consultant Relationship Specialty Start Date End Date Abdulaziz Caldera MD [address] [place] [address] PCP - General Family Practice 11/23/20 Retail Sales Vitamin Consultant Relationship Specialty Start Date End Date Abdulaziz Caldera MD [address] [place] [address] PCP - General Family Practice 11/23/20 Retail Sales Vitamin Consultant Relationship Specialty Start Date End Date Abdulaziz Caldera MD [address] [place] [address] PCP - General Family Practice 11/23/20 Retail Sales Vitamin Consultant Relationship Specialty Start Date End Date Abdulaziz Caldera MD [address] [place] [address] PCP - General Family Practice 11/23/20 Retail Sales Vitamin Consultant Relationship Specialty Start Date End Date Abdulaziz Caldera MD [address] [place] [address] PCP - General Family Practice 11/23/20 Retail Sales Vitamin Consultant Relationship Specialty Start Date End Date Abdulaziz Caldera MD [facility] [place] [address] PCP - General Family Practice 11/23/20 Retail Sales Vitamin Consultant Relationship Specialty Start Date End Date Abdulaziz Caldera MD [facility] [place] [address] PCP - General Family Practice 11/23/20 Retail Sales Vitamin Consultant Relationship Specialty Start Date End Date Abdulaziz Caldera MD [address] [place] [address] PCP - General Family Practice 11/23/20 Retail Sales Vitamin Consultant Relationship Specialty Start Date End Date Abdulaziz Caldera MD [address] [place] [address] PCP - General Family Practice 11/23/20 Retail Sales Vitamin Consultant Relationship Specialty Start Date End Date Abdulaziz Caldera MD [address] [place] [address] PCP - General Family Practice 11/23/20 Retail Sales Vitamin Consultant Relationship Specialty Start Date End Date Abdulaziz Caldera MD [address] [place] [address] PCP - General Family Practice 11/23/20 Retail Sales Vitamin Consultant Relationship Specialty Start Date End Date Abdulaziz Caldera MD [address] [place] [address] PCP - General Family Practice 11/23/20 Retail Sales Vitamin Consultant Relationship Specialty Start Date End Date Abdulaziz Cadlera MD [address] [place] [address] PCP - General Family Practice 11/23/20 Retail Sales Vitamin Consultant Relationship Specialty Start Date End Date Abdulaziz Caldera MD [address] [place] [address] PCP - General Family Practice 11/23/20 Retail Sales Vitamin Consultant Relationship Specialty Start Date End Date Abdulaziz Caldera MD [facility] [place] [address] PCP - General Family Medicine 11/23/20 Retail Sales Vitamin Consultant Relationship Specialty Start Date End Date Abdulaziz Caldera MD [facility] [place] [address] PCP - General Family Medicine 11/23/20 Retail Sales Vitamin Consultant Relationship Specialty Start Date End Date Abdulaziz Caldera MD [address] [place] [address] PCP - General Family Medicine 11/23/20 Retail Sales Vitamin Consultant Relationship Specialty Start Date End Date Abdulaziz Caldera MD [facility] [place] [address] PCP - General Family Medicine 11/23/20 Retail Sales Vitamin Consultant Relationship Specialty Start Date End Date Abdulaziz Caldera MD [facility] [place] [address] PCP - General Family Medicine 11/23/20 Retail Sales Vitamin Consultant Relationship Specialty Start Date End Date Abdulaziz Caldera MD [facility] [place] [address] PCP - General Family Medicine 11/23/20 Retail Sales Vitamin Consultant Relationship Specialty Start Date End Date Abdulaziz Caldera MD [address] [place] [address] PCP - General Family Medicine 11/23/20 Retail Sales Vitamin Consultant Relationship Specialty Start Date End Date Abdulaziz Caldera MD [address] [place] [address] PCP - General Family Medicine 11/23/20 Retail Sales Vitamin Consultant Relationship Specialty Start Date End Date Abdulaziz Caldera MD [address] [place] [address] PCP - General Family Medicine 11/23/20 Retail Sales Vitamin Consultant Relationship Specialty Start Date End Date Abdulaziz Caldera MD [address] [place] [address] PCP - General Family Medicine 11/23/20 Retail Sales Vitamin Consultant Relationship Specialty Start Date End Date Abdulaziz Caldera MD [address] [place] [address] PCP - General Family Medicine 11/23/20 Retail Sales Vitamin Consultant Relationship Specialty Start Date End Date Abdulaziz Caldera MD [address] [place] [address] PCP - General Family Medicine 11/23/20 Retail Sales Vitamin Consultant Relationship Specialty Start Date End Date Abdulaziz Caldera MD [address] [place] [address] PCP - General Family Medicine 11/23/20 Retail Sales Vitamin Consultant Relationship Specialty Start Date End Date Abdulaziz Caldera MD [address] [place] [address] PCP - General Family Medicine 11/23/20 Retail Sales Vitamin Consultant Relationship Specialty Start Date End Date Abdulaziz Caldera MD [address] [place] [address] PCP - General Family Medicine 11/23/20 Retail Sales Vitamin Consultant Relationship Specialty Start Date End Date Abdulaziz Caldera MD [address] [place] [address] PCP - General Family Medicine 11/23/20 Retail Sales Vitamin Consultant Relationship Specialty Start Date End Date Abdulaziz Caldera MD [address] [place] [address] PCP - General Family Medicine 11/23/20 Retail Sales Vitamin Consultant Relationship Specialty Start Date End Date Abdulaziz Caldera MD [address] [place] [address] PCP - General Family Medicine 11/23/20 Retail Sales Vitamin Consultant Relationship Specialty Start Date End Date Abdulaziz Caldera MD [address] [place] [address] PCP - General Family Medicine 11/23/20 Team [...] MD Primary Care Provider Acti ve Dr. Kraen Aly MD Admit Provider, Attending Provider, Other [...] MD Admit Provider, Attending Provi skip Active Retail Sales Vitamin Consultant Relationship Specialty Start Date End Date Abdulaziz Caldera MD [address] [place] [address] PCP - General Family Medicine 11/23/20 Team [...] Sauer MD Emergency Provider Active Dr. Ryan iTnoco MD Admit Provider, A ttending Provider, Other [...] MD Admit Provider, Attending Prov ider Active Retail Sales Vitamin Consultant Relationship Specialty Start Date End Date Abdulaziz Caldera MD [address] [place] [address] PCP - General Family Medicine 11/23/20 Team [...] Provider, Ref erring Provider Active Ann Rodríguez SLAT GRADER, SLAT GRADER-C Attending Provider Active Team Status: Active Member [...] section and content) DATE CREATED AUTHOR 01/02/2022 [facility] DATE CREATED AUTHOR AUTHOR'S ORGANIZ ATION 02/04/2022 [facility] DATE CREATED AUTHOR AUTHOR'S ORGANCJ ATION 04/19/2022 [facility] ([place]) DATE CREATED AUTHOR AUTHOR'S ORGANIZ ATION 11/07/2024 [facility] DATE CREATED AUTHOR AUTHOR'S ORGANIZ ATION 12/17/2024 [facility] FOR RECORDS PERTAINING TO PATIENTS WHO ARE [...] BE BASED ON THE PRIMARY CLINICAL RECORDS. [facility] [facility]. provides no warranty or guarantee of the accuracy or completeness of information in this document.
[2024-12-22 09:00] LABS: Hematocrit 37.9 % (40-54); Hemoglobin 12.4 g/dL (13.0-16.5); Mean Corp Hgb Conc 32.7 g/dL (32-36); Mean Corpuscular Volume 85.6 fL (80-94); Mean Platelet Vol. 9.5 fl (6.2-12.0); Platelet Count 214 K/mm3 (150-450); RBC Distribution Width CV 13.5 % (11.6-14.6); RBC Distribution Width SD 41.9 fl (35.1-43.9); Red Blood Count 4.43 M/mm3 (4.6-6.2); White Blood Count 9.4 K/mm3 (4.4-11.0)
[2024-12-22 09:08] LABS: ALB/GLOB Ratio 1.7 RATIO (0.9-2.4); AST(SGOT) 14 U/L (<=37); Alanine Aminotransfer ALT/SGPT 13 U/L (<=46); Albumin, Serum 3.6 g/dL (3.4-4.8); Alkaline Phosphatase 104 U/L (40-129); Anion Gap 10 (5-15); BUN 21 mg/dL (4-19); BUN/Creat Ratio 19.8 RATIO (10-20); Calcium,Total 9.5 mg/dL (7.6-11.0); Carbon Dioxide 26.7 mmol/L (21.0-32.0); Chloride 103 mmol/L (98-108); Creatinine, Serum 1.04 mg/dL (0.70-1.20); EST Glomerular Filtration Rate 74 (>60); Globulin 2.2 g/dL (2.2-4.2); Glucose 131 mg/dL (70-99); Potassium 4.2 mmol/L (3.3-5.1); Protein, Total 5.8 g/dL (5.9-8.4); Sodium Level 141 mmol/L (133-145); Total Bilirubin 0.43 mg/dL (0.00-1.30)
== END ==
LOC: OLS.ACH 05:00
PROVIDERS: PCP Family Medicine; Visit Provider Internal Medicine
DX: E11.40 Type 2 diabetes mellitus with diabetic neuropathy, unspecified (principal); E11.22 Type 2 diabetes mellitus with diabetic chronic kidney disease; N18.31 Chronic kidney disease, stage 3a
CPT/HCPCS: 36415; 80053; 83036; 85027

== ENCOUNTER 2025-02-02 19:41 | Inpatient (IN) | payer MEDICARE, OTHER, SELFPAY ==
[2025-02-02 19:42] VITALS: BP 133/64; PULSE 93; RESP 31; TEMP 38.6; O2SAT 98; BMI 35.7
[2025-02-02 19:49] VITALS: BP 133/64; PULSE 92; RESP 32; TEMP 38.6; O2SAT 95
--- NOTE | 2025-02-02 20:00 | EX.ED.DYSGE1 ---
HPI History of Present Illness Chief Complaint: Fever [facility] Medical History History of stress test History of echocardiogram Cardiology follow-up encounter Uses wheelchair Difficulty swallowing History of ulceration History of GI bleed History of renal disease Prostate disease Pulmonary embolism High cholesterol Atrial tachycardia Anxiety Depression Kidney stones GI bleed Non-smoker Atrial fibrillation AAA (abdominal aortic aneurysm) Dementia Bacteremia Subtherapeutic international normalized ratio (INR) UTI (urinary tract infection) Presence of cardiac pacemaker Sick sinus syndrome Anemia Second degree AV block, Mobitz type II Supratherapeutic INR Syncope Acute encephalopathy Weakness Confusion History of pulmonary embolism NSTEMI, initial episode of care Valvular heart disease Amputation of right great toe Leukocytosis Hyperkalemia COVID-19 Ureterolithiasis Diabetes Aortic aneurysm without rupture HTN (hypertension) Lactic acidosis Upper gastrointestinal bleed Diabetic neuropathy Osteomyelitis Ulcer of right great toe due to diabetes mellitus Pulmonary emboli HLD (hyperlipidemia) RBBB (right bundle 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) Home Medications ?Medication ?Instructions ?Recorded ?Last Taken ?Type losartan 50 mg tablet 50 mg PO DAILY blood pressure 03/24/18 06/01/24 History atorvastatin 40 mg tablet 40 mg PO QHS cholesterol 05/22/18 05/31/24 History tamsulosin 0.4 mg capsule 0.4 mg PO QHS PROSTATE 03/02/22 05/31/24 History cholecalciferol (vitamin D3) 1,250 1,250 mcg PO MO SUPPLEMENT 01/21/23 06/01/24 History mcg (50,000 unit) tablet metformin 1,000 mg tablet 1,000 mg PO BID DM 01/21/23 06/01/24 History insulin glargine 100 unit/mL (3 15 unit (0.15 mL) subcut DAILY 01/26/23 06/01/24 Rx mL) subcutaneous pen (Lantus diabetes #15 mL Solostar U-100 Insulin) pantoprazole 40 mg tablet,delayed 40 mg PO BID #60 tabs 02/05/23 06/01/24 Rx release sucralfate 1 gram tablet 1 g PO 0700,1100,1600 #90 tabs 02/05/23 06/01/24 Rx melatonin 3 mg tablet 3 mg PO QHS Insomnia 02/10/23 02/10/23 History memantine 10 mg tablet 10 mg PO BID #0 tabs 02/13/23 06/01/24 Rx metoprolol succinate 25 mg 25 mg PO DAILY blood pressure #30 03/27/23 05/31/24 Rx tablet,extended release 24 hr tabs bisacodyl 10 mg rectal suppository 10 mg KS DAILY PRN constipation 05/30/23 Unknown History loperamide 2 mg capsule 2 mg PO Q4H PRN loose stool 05/30/23 Unknown History (Anti-Diarrheal (loperamide)) acetaminophen 325 mg tablet 650 mg PO .q12hrs PAIN AND FEVER 10/07/23 06/01/24 History ferrous sulfate 325 mg (65 mg 325 mg PO DAILY 10/07/23 06/01/24 History iron) tablet apixaban 5 mg tablet (Eliquis) 5 mg PO BID #60 tabs 03/03/24 05/30/24 Rx paroxetine HCl 30 mg tablet 30 mg PO QDAY 04/07/24 06/01/24 History Allergy/AdvReac Type Severity Reaction Status Date / Time propofol AdvReac Other Verified 02/02/25 19:42 Family History Mother Heart disease Diabetes Hypertension Father Heart disease Surgical History History of AAA (abdominal aortic aneurysm) repair History of foot surgery Hx of abdominal surgery H/O aortic valve repair History of thoracic aortic aneurysm repair Social History housing: long term current occupational status: retired Smoking Status: Never smoker alcohol intake: never substance use type: does not use EXAM Physical Exam Const Vital Signs: 02/02/25 19:42 02/02/25 19:49 02/02/25 20:14 Temperature 101.4 F H 101.4 F H Temperature Source Axillary Axillary Pulse Rate 93 92 Respiratory Rate 31 H 32 H Respiratory Effort Respiratory Pattern Blood Pressure 133/64 H 133/64 H Blood Pressure Mean 87 87 Pulse Ox 98 95 Oxygen Delivery Method Non-Rebreather Room Air Room Air Oxygen Flow Rate (L/min) 15 02/02/25 20:49 02/02/25 22:00 02/02/25 22:04 Temperature 101.4 F H Temperature Source Axillary Pulse Rate 88 85 Respiratory Rate 16 27 H Respiratory Effort Normal Respiratory Pattern Normal Blood Pressure 125/105 H 114/58 L Blood Pressure Mean 111 76 Pulse Ox 94 92 Oxygen Delivery Method Room Air Room Air Oxygen Flow Rate (L/min) [facility] MDM MDM Narrative Medical decision making narrative: HISTORY OF PRESENT ILLNESS: Chief complaint: Cough, lethargy, altered mental status and fever 79-year-old male history of type 2 diabetes, hyperlipidemia, PE, A-fib on Eliquis, secondary heart block status post pacemaker presents with recent cough, lethargy and fever. Also noted altered mental status. History is provided by and son. notes patient was behaving normally yesterday at his nursing facility. No she was called because he has been more lethargic. She states he thought he may have had pneumonia. The patient cannot provide a lot of history because he is altered. She notes his baseline mental status is typically alert and oriented to person and place but not necessarily to time REVIEW OF SYSTEMS: Unable to obtain a reliable review of system secondary to altered mental status PHYSICAL EXAM: Nursing triage notes reviewed, Vital signs reviewed Constitutional: please see mdm HENT: MMM Eyes: Pupils equal round and reactive to light, Extraocular muscles intact Neck: No stridor, no JVD, full neck ROM Lungs: Clear to auscultation, No wheezing or rales. No increased work of breathing, no conversational dyspnea, no accessory muscle use, no nasal flaring. No respiratory distress noted Heart: Regular rate and rhythm, No murmurs, No rubs and No gallops, 2+ distal pulses (radial, femoral, posterior tibial) in all extremities Abdomen: Soft, there is no tenderness, rigidity, rebound or guarding, no obvious peritoneal signs, no palpable pulsatile abdominal masses, no auscultated abdominal bruit : No CVAT Extremities: No edema Neuro: Sleepy, drowsy, responsive to voice. Oriented to person but not place or time. Moves all 4 extremities has chronic neuropathy bilateral lower extremities. Has sensation intact in bilateral upper extremities. No obvious cranial nerve deficits. Skin: No rash or lesions noted MEDICAL DECISION MAKING: Chief Complaint: please see HPI External records reviewed: No recent hospitalizations, reviewed medications. Reviewed x-ray from long term which reported no obvious focal infiltrate Factors affecting care: n as per HPI Social determinants of health: penit[facility]iary resident History obtained from others: EMS Consults: Internal medicine MDM Narrative: The patient was initially tachypneic with a respiratory rate of 31, febrile with a temperature 101.4 initially on nonrebreather per triage vitals. On my evaluation Given initial SIRS criteria and obvious infectious source of the left foot concerning for infected diabetic foot ulcer versus osteomyelitis. Sepsis alert called. Sepsis order set was used. Initial 30 cc/kg bolus was given. Vanco/Zosyn ordered per sepsis order set. I considered the following differential diagnosis: Pneumonia, UTI, osteomyelitis, cellulitis. I obtained a broad lab and imaging workup to further determine if the patient was suffering from a life-threatening etiology. Patient was initially given broad-spectrum antibiotics and received ideal body weight 30 cc/kg bolus ALL IMAGES (IF OBTAINED) HAVE BEEN PERSONALLY REVIEWED AND INTERPRETED BY MYSELF. CBC with leukocytosis, mild anemia that is baseline, no thrombocytopenia No coagulopathy noted BMP without significant electrolyte abnormalities, no acute kidney Initial lactate elevated consistent with endorgan hypoperfusion LFTs showed no signs of obstructive Urinalysis shows no evidence of urinary inflammation suggestive of UTI Chest x-ray was read reviewed personally myself show no evidence of obvious pneumonia. Radiologist noted possible pneumonia in the left midlung. I do not appreciate this however the patient did receive broad-spectrum antibiotics X-ray of the patient's left foot was read reviewed personally by myself showed no evidence of obvious osteomyelitis The synthesis of the patient's history, physical exam, labs images suggest likely sepsis from infected diabetic foot ulcer of the left foot. Patient did receive broad-spectrum antibiotics and will be admitted to the hospital. Upon re-evaluation patient's volume status and organ perfusion were appropriate. No indication for pressors at this time The patient and/or family, caregivers express understanding. The patient and/or family, caregivers agrees with the plan. Shared decision making: I will have a discussion with the patient and or visitors regarding risk/benefits of further testing or admission. They will be made aware of of the risk/benefits inherent in this decision they will be given the opportunity to voice understanding. Total critical care time today provided was at least 0 minutes. This excludes separately billable procedures. Critical care time (if documented) is secondary to the patient having high probability of clinically significant/life threatening deterioration in the patient's condition which required my urgent intervention. Impression: 1. Sepsis 2. Infected diabetic foot ulcer 3. Leukocytosis 4. Elevated lactic acid Dispo: Discharge This note was generated with Dragon dictation software. It may contain incorrect words, spelling, and punctuation that were not noted in review of the chart prior to signing. Lab Data Labs: Laboratory Results - last 24 hr 02/02/25 02/02/25 19:56 21:25 WBC 13.9 H RBC 3.94 L Hgb 10.9 L Hct 33.5 L MCV 85.0 MCH 27.7 MCHC 32.5 RDW Std Deviation 42.2 RDW Coeff of Nathaniel 13.6 Plt Count 203 MPV 9.4 Immature Gran % (Auto) 0.700 Neut % (Auto) 86.2 H Lymph % (Auto) 3.6 L [place] % (Auto) 8.7 Eos % (Auto) 0.6 Baso % (Auto) 0.2 Absolute Neuts (auto) 12.0 H Absolute Lymphs (auto) 0.50 L Nucleated RBC % 0 PT 17.3 H INR 1.4 APTT 34.0 Sodium 141 Potassium 3.8 Chloride 104 Carbon Dioxide 22.4 Anion Gap 14 BUN 18 Creatinine 1.04 Estim Creat Clear Calc 79.39 Est GFR (MDRD) Non-Af 74 BUN/Creatinine Ratio 17.0 Glucose 195 H Lactic Acid 3.1 H* Calcium 8.7 Total Bilirubin 0.50 AST 15 ALT 10 Alkaline Phosphatase 115 Total Protein 5.8 L Albumin 3.5 Globulin 2.3 Albumin/Globulin Ratio 1.5 Urine Color Yellow Urine Clarity Clear Urine pH 5.0 Ur Specific [place] 1.015 Urine Protein 30 H Urine Glucose (UA) 250 H Urine Ketones Negative Urine Occult Blood 25 H Urine Nitrite Negative Urine Bilirubin Negative Urine Urobilinogen Normal Ur Leukocyte Esterase Negative Urine RBC 5-10 SEEN Urine WBC 5-10 SEEN Ur Squamous Epith Cells 0-5 SEEN Urine Bacteria 1+ Urine Mucus 0 SEEN Radiography Diagnostic Testing: Clinical Impression(s) from Imaging Studies Brain CT 02/02/25 20:09 IMPRESSION: 1. No acute intracranial abnormality. 2. Mild-moderate volume loss and chronic microangiopathic changes. 3. Chronic paranasal sinus disease. Reading Location: [facility] Chest X-Ray 02/02/25 20:20 IMPRESSION: Pulmonary findings as above. Reading Location: [facility] Foot X-Ray 02/02/25 20:20 IMPRESSION: No acute osseous abnormality. Reading Location: [id number] Discharge Plan Triage Chief Complaint: Fever ED Provider: Nicholas Galarza Dx/Rx/DC Orders Prescriptions: No Action metoprolol succinate 25 mg tablet extended release 24 hr 25 mg PO DAILY Qty: 30 0RF ferrous sulfate 325 mg (65 mg iron) tablet 325 mg PO DAILY paroxetine HCl 30 mg tablet 30 mg PO QDAY losartan 50 MG tablet 50 mg PO DAILY atorvastatin 40 MG tablet 40 mg PO QHS tamsulosin 0.4 mg capsule 0.4 mg PO QHS Patient Comments: TAKE 1 CAPSULE BY MOUTH EVERYDAY AT BEDTIME sucralfate 1 gram Tablet 1 g PO 0700,1100,1600 Qty: 90 2RF pantoprazole 40 mg tablet,delayed release (DR/EC) 40 mg PO BID Qty: 60 2RF melatonin 3 mg Tablet 3 mg PO QHS Patient Comments: PRN PER SKILLED NURSING MAR. memantine 10 mg Tablet 10 mg PO BID Qty: 0 0RF acetaminophen 325 mg tablet 650 mg PO .q12hrs Patient Comments: PRN PER SKILLED NURSING MAR bisacodyl 10 mg suppository 10 mg KS DAILY PRN (Reason: constipation) loperamide [Anti-Diarrheal (loperamide)] 2 mg capsule 2 mg PO Q4H PRN (Reason: loose stool) Rx Instructions: administer after each loose stool until symptoms controlled; do not exceed 8 mg per 24 hrs cholecalciferol (vitamin D3) 1,250 mcg (50,000 unit) tablet 1,250 mcg PO MO metformin 1,000 mg tablet 1,000 mg PO BID insulin glargine [Lantus Solostar U-100 Insulin] 100 UNITS/ML insulin pen 15 unit subcut DAILY Qty: 15 0RF Eliquis 5 mg tablet 5 mg PO BID Qty: 60 11RF Primary Care Provider: Kuldip Cosby Referrals: Luis Caldera MD [Non-Staff] - Print Language: Albanian
--- NOTE | 2025-02-02 20:08 | EKG12_ITS ---
Test Reason : FEVER Blood Pressure : */* mmHG Vent. Rate : 91 BPM Atrial Rate : 91 BPM P-R Int : 180 ms QRS Dur : 212 ms QT Int : 444 ms P-R-T Axes : 77 -80 103 degrees QTcB Int : 546 ms Atrial-sensed ventricular-paced rhythm Abnormal ECG Confirmed by Tuan Thakkar ([id number]), features editor LÓPEZ BELTRE ([id number]) on 02/03/2025 1:53:37 PM Referred By: FAVIAN Confirmed By: Tuan Thakkar
--- NOTE | 2025-02-02 20:09 | CT_ITS ---
PROCEDURE: BRAIN/HEAD WITHOUT CONTRAST 02/02/2025 REASON FOR EXAM: AMS TECHNIQUE: BRAIN/HEAD WITHOUT CONTRAST Coronal and Sagittal reconstruction series were provided. One or more dose reduction techniques were used (e.g., Automated exposure control, adjustment of the mA and/or kV according to patient size, use of iterative reconstruction technique. RADIATION DOSE SUMMARY: CTDlvol: 44.99 mGy DLP: 880.47 mGycm COMPARISON: 01/21/2023 FINDINGS: No acute intracranial hemorrhage, extra-axial collection, mass effect or evidence of acute infarct. Mild-moderate generalized brain parenchymal volume loss, and chronic microangiopathic changes throughout the supratentorial white matter. 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 Atherosclerotic vascular calcifications. Unremarkable orbits. Intact skull base and calvarium. No mastoid effusions. Chronic paranasal sinus disease with peripheral osseous remodeling/osteitis, peripheral mucosal thickening in the bilateral maxillary sinuses, and obliterative right frontal sinusitis completely opacified with mineralization. CT/Brain/Head without Contrast IMPRESSION: 1. No acute intracranial abnormality. 2. Mild-moderate volume loss and chronic microangiopathic changes. 3. Chronic paranasal sinus disease. Reading Location: [id number]
--- NOTE | 2025-02-02 20:20 | RAD_ITS ---
PROCEDURE: FOOT 2 VIEWS 02/02/2025 REASON FOR EXAM: REDNESS, LATERAL 5TH DIGIT ULCER TECHNIQUE: FOOT 2 VIEWS COMPARISON: None. FINDINGS: No evidence of acute fracture or dislocation. The joint spaces are maintained. Heavy atherosclerosis. RAD/Foot 2 Views IMPRESSION: No acute osseous abnormality. Reading Location: [id number]
--- NOTE | 2025-02-02 20:20 | RAD_ITS ---
PROCEDURE: CHEST 1 VIEW (PORTABLE) 02/02/2025 REASON FOR EXAM: ALTERED MENTAL STATUS TECHNIQUE: Frontal view of the chest. COMPARISON: 02/10/2023. FINDINGS: The heart is enlarged. Prior sternotomy. Left chest pacemaker. Left midlung consolidative opacity which may represent pneumonia (limited assessment due to rotation). RAD/Chest 1 View (Portable) IMPRESSION: Pulmonary findings as above. Reading Location: [id number]
[2025-02-02 20:31] LABS: Hematocrit 33.5 % (40-54); Hemoglobin 10.9 g/dL (13.0-16.5); Immature Granulocytes Count 0.100 X10^3/uL (0.0-0.0); Mean Corp Hgb Conc 32.5 g/dL (32-36); Mean Corpuscular Volume 85.0 fL (80-94); Mean Platelet Vol. 9.4 fl (6.2-12.0); NRBC Flagged by Analyzer 0 % (0-5); POSITIVE DIFFERENTIAL YES; Platelet Count 203 K/mm3 (150-450); RBC Distribution Width CV 13.6 % (11.6-14.6); RBC Distribution Width SD 42.2 fl (35.1-43.9); Red Blood Count 3.94 M/mm3 (4.6-6.2); White Blood Count 13.9 K/mm3 (4.4-11.0)
[2025-02-02 20:49] VITALS: BP 125/105; PULSE 88; RESP 16; TEMP 38.6; O2SAT 94
[2025-02-02 20:52] LABS: Partial Thromboplast Time 34.0 Seconds (24.1-36.2); Prothrombin Time (Protime)PT. 17.3 SECONDS (11.7-14.9)
[2025-02-02] MEDS: Piperacil/Tazobactam 4.5 GM in 0.9% Normal Saline (100mL MB+) 100 ML IV (20:57)
[2025-02-02 21:06] LABS: AST(SGOT) 15 U/L (<=37); Alanine Aminotransfer ALT/SGPT 10 U/L (<=46); Albumin, Serum 3.5 g/dL (3.4-4.8); Alkaline Phosphatase 115 U/L (40-129); Anion Gap 14 (5-15); BUN 18 mg/dL (4-19); BUN/Creat Ratio 17.0 RATIO (10-20); Calcium,Total 8.7 mg/dL (7.6-11.0); Carbon Dioxide 22.4 mmol/L (21.0-32.0); Chloride 104 mmol/L (98-108); Estimated Creatinine Clearance 79.39 ml/min (50-250); Globulin 2.3 g/dL (2.2-4.2); Glucose 195 mg/dL (70-99); Potassium 3.8 mmol/L (3.3-5.1)
[2025-02-02 21:40] LABS: Mucous, Urine 0 SEEN /hpf (<or=2+)
[2025-02-02 21:43] LABS: Color, Urine Yellow (Yellow); Glucose, Dipstick 250 mg/dl (Normal); Ketone-Dipstick Negative (Negative); Leukocyte Esterase-Dipstick Negative /ul (Negative); Nitrite-Dipstick Negative (Negative); Occult Blood-Urine 25 /ul (Negative); Protein-Dipstick 30 mg/dl (Negative); Specific Gravity, Urine 1.015 (1.002-1.030); Urine Bilirubin Dipstick Negative (Negative)
[2025-02-02] MEDS: Vancomycin HCl 2,000 MG in 0.9% Normal Saline (500mL Bag) 500 ML 250 MG IV (21:52)
[2025-02-02] MEDS: 0.9% Normal Saline (1000mL) 1,000 ML 999 ML IV ×2 (21:57→23:07)
[2025-02-02 22:00] VITALS: BP 114/58; PULSE 85; RESP 27; O2SAT 92
[2025-02-02 22:34] LABS: Red Blood Cells-Urine 5-10 SEEN /hpf (0-5); Squamous Epithelial Cells - UA 0-5 SEEN /hpf (0-5)
--- NOTE | 2025-02-02 22:41 | PCM.HP.STD ---
HPI - General General Date of Admission: 02/02/25 Date of Service: 02/02/25 Chief Complaint: Altered mental status, cough, fever HPI Narrative The patient is a 79 y/o M w/ PMHx: BPH with obstructive pathology, CKD stage IIIa, AAA s/p repair, Hx COVID-19, Hx GI bleed, Valvular heart disease s/p AVR, HTN, HLD, VTE w/ Hx DVT/PE, Diabetes mellitus type II, Obesity, PAF w/ prior noted mobitz type II s/p pacemaker, Chronic anemia/iron deficiency anemia, Dementia unclear type with unclear behavioral disturbance history who presents to the [facility] ED on 02/02/2025 with history of recent onset of cough, fatigue and malaise as well as fevers with altered mental status brought in by his and son noted that he been behaving his normal baseline the day prior at skilled facility however she was called this evening secondary to his worsening status prompting ED evaluation to be cautious. Patient baseline is typically alert and oriented to person and place. In the ED upon arrival patient was noted to have mild erythema to the left dorsal foot as well in addition to a small chronic lateral foot ulceration/wound which reports has been followed by wound care at the facility. Workup in the ED included T101.4, heart rate 93, BP 133/64, respiratory rate 31, initially 98% on a 15 L nonrebreather with most recent repeat vitals T101.4 axillary, heart rate 85, BP 114/58, respiratory rate 27, 92% on room air, CBC with WC 13.9, hemoglobin 10.9, MCV 85, platelet 203 with left shift and lymphopenia, coags with PT 17.3, INR 1.4, PTT 34, CMP with BUN/creatinine 18/1.04, GFR 74, glucose 195, lactic acid 3.1, hepatic profile not marked appearing, urinalysis with specific gravity 1.015, protein 30, glucose 250, ketone negative, occult blood 25, nitrite negative, leukocyte esterase negative with urine RBCs 5-10, urine WBCs 5-10 with 1+ urine bacteria, chest x-ray with possible left midlung consolidative opacity concerning for pneumonia, CT of the brain with no acute intracranial findings, plain film of the left foot with no acute osseous findings. In the ED patient ministered 1 L normal saline, Tylenol 1000 mg p.o. x 1, Toradol 50 mg IV x 1, IV vancomycin and IV Zosyn in addition to magnesium 4 g IV x 1. [facility] Medical History History of stress test History of echocardiogram Cardiology follow-up encounter Uses wheelchair Difficulty swallowing History of ulceration History of GI bleed History of renal disease Prostate disease Pulmonary embolism High cholesterol Atrial tachycardia Anxiety Depression Kidney stones GI bleed Non-smoker Atrial fibrillation AAA (abdominal aortic aneurysm) Dementia Bacteremia Subtherapeutic international normalized ratio (INR) UTI (urinary tract infection) Presence of cardiac pacemaker Sick sinus syndrome Anemia Second degree AV block, Mobitz type II Supratherapeutic INR Syncope Acute encephalopathy Weakness Confusion History of pulmonary embolism NSTEMI, initial episode of care Valvular heart disease Amputation of right great toe Leukocytosis Hyperkalemia COVID-19 Ureterolithiasis Diabetes Aortic aneurysm without rupture HTN (hypertension) Lactic acidosis Upper gastrointestinal bleed Diabetic neuropathy Osteomyelitis Ulcer of right great toe due to diabetes mellitus Pulmonary emboli HLD (hyperlipidemia) RBBB (right bundle 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) Home Medications ?Medication ?Instructions ?Recorded ?Last Taken ?Type losartan 50 mg tablet 50 mg PO DAILY blood pressure 03/24/18 06/01/24 History atorvastatin 40 mg tablet 40 mg PO QHS cholesterol 05/22/18 05/31/24 History tamsulosin 0.4 mg capsule 0.4 mg PO QHS PROSTATE 03/02/22 05/31/24 History cholecalciferol (vitamin D3) 1,250 1,250 mcg PO MO SUPPLEMENT 01/21/23 06/01/24 History mcg (50,000 unit) tablet metformin 1,000 mg tablet 1,000 mg PO BID DM 01/21/23 06/01/24 History insulin glargine 100 unit/mL (3 15 unit (0.15 mL) subcut DAILY 01/26/23 06/01/24 Rx mL) subcutaneous pen (Lantus diabetes #15 mL Solostar U-100 Insulin) pantoprazole 40 mg tablet,delayed 40 mg PO BID #60 tabs 02/05/23 06/01/24 Rx release sucralfate 1 gram tablet 1 g PO 0700,1100,1600 #90 tabs 02/05/23 06/01/24 Rx melatonin 3 mg tablet 3 mg PO QHS Insomnia 02/10/23 02/10/23 History memantine 10 mg tablet 10 mg PO BID #0 tabs 02/13/23 06/01/24 Rx bisacodyl 10 mg rectal suppository 10 mg HI DAILY PRN constipation 05/30/23 Unknown History loperamide 2 mg capsule 2 mg PO Q4H PRN loose stool 05/30/23 Unknown History (Anti-Diarrheal (loperamide)) acetaminophen 325 mg tablet 650 mg PO .q12hrs PAIN AND FEVER 10/07/23 06/01/24 History ferrous sulfate 325 mg (65 mg 325 mg PO DAILY 10/07/23 06/01/24 History iron) tablet apixaban 5 mg tablet (Eliquis) 5 mg PO BID #60 tabs 03/03/24 05/30/24 Rx paroxetine HCl 30 mg tablet 30 mg PO QDAY 04/07/24 06/01/24 History ipratropium 0.5 mg-albuterol 3 mg 3 ml inhalation Q4H PRN shortness 02/02/25 Unknown History (2.5 mg base)/3 mL nebulization of breath soln metoprolol succinate 25 mg capsule 25 mg PO DAILY 02/02/25 Unknown History sprinkle, ext. release 24 hr ([place]sp[place] Sprinkle) Allergy/AdvReac Type Severity Reaction Status Date / Time propofol AdvReac Other Verified 02/02/25 19:42 Family History Mother Heart disease Diabetes Hypertension Father Heart disease Surgical History History of AAA (abdominal aortic aneurysm) repair History of foot surgery Hx of abdominal surgery H/O aortic valve repair History of thoracic aortic aneurysm repair Social History housing: senior living current occupational status: retired Smoking Status: Never smoker alcohol intake: never substance use type: does not use ROS Review of Systems ROS Unobtainable: due to encephalopathy and due to mental condition Vital Signs Vital Signs Vital Signs: 02/02/25 19:42 02/02/25 19:49 02/02/25 20:14 Temperature 101.4 F H 101.4 F H Temperature Source Axillary Axillary Pulse Rate 93 92 Respiratory Rate 31 H 32 H Respiratory Effort Respiratory Pattern Blood Pressure 133/64 H 133/64 H Blood Pressure Mean 87 87 Pulse Ox 98 95 Oxygen Delivery Method Non-Rebreather Room Air Room Air Oxygen Flow Rate (L/min) 15 02/02/25 20:49 02/02/25 22:00 02/02/25 22:04 Temperature 101.4 F H Temperature Source Axillary Pulse Rate 88 85 Respiratory Rate 16 27 H Respiratory Effort Normal Respiratory Pattern Normal Blood Pressure 125/105 H 114/58 L Blood Pressure Mean 111 76 Pulse Ox 94 92 Oxygen Delivery Method Room Air Room Air Oxygen Flow Rate (L/min) Weight Weight: 263 lb 7.238 oz Body Mass Index (BMI) 35.7 Physical Exam Narrative Physical Examination: General: Awakens to stimuli, alert with questioning but notably fatigued and lethargic, will answer some question, no acute distress. Skin: Normal color, normal turgor, no icterus, no cyanosis except for occasional stage ecchymoses, abrasion in addition to left foot lateral primarily dorsal distal erythema with a small wound on the lateral side but no drainage or foul odor noted. HEENT: AT/NC, EOMI, PERRLA, dry MM, no carotid bruits or JVD noted. Lungs: Diminished, greater bases, mildly decreased effort, mildly increased respiratory rate but no distress, no markedly appreciated rales, ronchi or wheezing. Heart: Regular rate and rhythm/paced; no gallop, rub audible. Abdomen: Soft, obese, NTTP, ND, hypoactive BS, no appreciated HSM. Extremities: No cyanosis, no clubbing, pedal to distal amador chronic edema. Neurological: Awakens to stimuli, alert with questioning but notably fatigued and lethargic, will answer some questions, no acute distress, cognitive function decreased from baseline with underlying cognitive impairment baseline, pupils equally reactive to light and accommodation, cranial nerves grossly normal, moving all 4 extremities, no focal deficits, strength severely globally decreased. Psychiatric: Affect appears flat, fatigued, no acute evidence of depressive or anxiety feelings but does have underlying history. Results Lab / Micro Data 02/02/25 19:56 02/02/25 19:56 Labs: Laboratory Results - last 24 hr 02/02/25 19:56: WBC 13.9 H, RBC 3.94 L, Hgb 10.9 L, Hct 33.5 L, MCV 85.0, MCH 27.7, MCHC 32.5, RDW Std Deviation 42.2, RDW Coeff of Nathaniel 13.6, Plt Count 203, MPV 9.4, Immature Gran % (Auto) 0.700, Neut % (Auto) 86.2 H, Lymph % (Auto) 3.6 L, [place] % (Auto) 8.7, Eos % (Auto) 0.6, Baso % (Auto) 0.2, Absolute Neuts (auto) 12.0 H, Absolute Lymphs (auto) 0.50 L, Nucleated RBC % 0, PT 17.3 H, INR 1.4, APTT 34.0, Sodium 141, Potassium 3.8, Chloride 104, Carbon Dioxide 22.4, Anion Gap 14, BUN 18, Creatinine 1.04, Estim Creat Clear Calc 79.39, Est GFR (MDRD) Non-Af 74, BUN/Creatinine Ratio 17.0, Glucose 195 H, Lactic Acid 3.1 H*, Calcium 8.7, Total Bilirubin 0.50, AST 15, ALT 10, Alkaline Phosphatase 115, Total Protein 5.8 L, Albumin 3.5, Globulin 2.3, Albumin/Globulin Ratio 1.5 02/02/25 21:25: Urine Color Yellow, Urine Clarity Clear, Urine pH 5.0, Ur Specific [place] 1.015, Urine Protein 30 H, Urine Glucose (UA) 250 H, Urine Ketones Negative, Urine Occult Blood 25 H, Urine Nitrite Negative, Urine Bilirubin Negative, Urine Urobilinogen Normal, Ur Leukocyte Esterase Negative, Urine RBC 5-10 SEEN, Urine WBC 5-10 SEEN, Ur Squamous Epith Cells 0-5 SEEN, Urine Bacteria 1+, Urine Mucus 0 SEEN Imaging Radiology Impression Brain CT 02/02/25 20:09 IMPRESSION: 1. No acute intracranial abnormality. 2. Mild-moderate volume loss and chronic microangiopathic changes. 3. Chronic paranasal sinus disease. Reading Location: [facility] Chest X-Ray 02/02/25 20:20 IMPRESSION: Pulmonary findings as above. Reading Location: [facility] Foot X-Ray 02/02/25 20:20 IMPRESSION: No acute osseous abnormality. Reading Location: [facility] Assessment & Plan Assessment/Plan (1) Pneumonia: PLAN: Plan The patient is a 79 y/o M w/ PMHx: BPH with obstructive pathology, CKD stage IIIa, AAA s/p repair, Hx COVID-19, Hx GI bleed, Valvular heart disease s/p AVR, HTN, HLD, VTE w/ Hx DVT/PE, Diabetes mellitus type II, Obesity, PAF w/ prior noted mobitz type II s/p pacemaker, Chronic anemia/iron deficiency anemia, Dementia unclear type with unclear behavioral disturbance history who presents to the [facility] ED on 02/02/2025 with history of recent onset of cough, fatigue and malaise as well as fevers with altered mental status brought in by his and son noted that he been behaving his normal baseline the day prior at skilled facility however she was called this evening secondary to his worsening status prompting ED evaluation to be cautious. #1. Acute Sepsis secondary to Concern for left midlung pneumonia and #2 (Fever, leukocytosis, mental status change, lactic acidosis): Given stable vital signs will admit to medical surgical floor, currently not requiring any oxygen but if necessary will certainly supplement with wean as tolerated room air, ATC DuoNeb therapy, PRN albuterol, maintain on IV Zosyn and Vancomycin given #2, HOB, IS parameters w/ pending sputum cultures and urine antigens. Bld cx x 2 obtained in the ED. PT/OT/ST consultations as well as case management for discharge planning. #2. Left Foot Diabetic Wound/Ulcer: As noted above we will maintain on IV vancomycin and IV Zosyn, currently there is no discharge but if onset low threshold today wound culture and MRSA wound, plan repeat CBC in AM, will obtain ESR and CRP upon admission as well as in a.m., will request podiatry evaluation per discussion with family, continue affected extremity elevation above heart when seated and in bed, monitor erythema outline with VS checks, wound RN consultation also requested. #3. Severe hypomagnesemia: Magnesium 0.9, 4 g IV initiated, will repeat level in AM. #4. History of VTE: Patient with history of DVT, PE, previously on Coumadin eventually discontinued given GI bleed, from current presentation noted transition to Eliquis, will cautiously continue. #5. Advanced dementia unclear specific type with unclear behavior disturbance history: Complicates presentation, will continue patient home memantine home regimen, PT/OT/case management consulted for discharge planning. #6. Valvular heart disease: Status post AV repair, most recent echocardiogram noted 02/12/2023 with EF 55 to 60%, mild MV insufficiency. #7. PAF: Will continue patient home metoprolol and Eliquis regimen. #8. History AAA: Status post repair 2006, will continue home Eliquis, statin therapy, hypertensive regimen as noted. #9. Diabetes mellitus type II: Hold oral home regimen, continue home insulin regimen, ADA diet, accu checks w/ ISS. #10. Chronic normocytic anemia/iron deficiency anemia: Admission hemoglobin 10.9, MCV 85, baseline hemoglobin more recently 11-12 range, will continue to trend, continue iron supplementation. #11. Hypertension: Continue home regimen including metoprolol, losartan with hold parameters as needed, PRN hydralazine. #12. Hyperlipidemia: Will continue patient on statin therapy. #13. History sick sinus syndrome, second-degree Mobitz type II heart block: Status post pacemaker placement, encourage continued outpatient evaluation and interrogation as previously arranged. #14. Anxiety and depression: Will continue patient home paroxetine regimen, encourage continued outpatient follow-up as previously arranged. #15. GERD with history of GI bleed: Will continue patient on PPI and sucralfate home regimen. #16. BPH with obstructive pathology: Will continue patient home Flomax regimen, monitor for retention. Rodrigues initially placed in the ED, will de-escalate in a.m. #17. DVT prophylaxis: Will continue patient on Eliquis regimen. #18. CODE status: Patient HCPOA is his /son who is present and living will is currently in place. Discussed CODE status at length including difference between FULL code, DNR-CCA and DNR-CC status. Following discussions about the differences in these status, requested DNR-CCA, no intubation. Also discussed the concept of central line and pressor therapy and patient and spouse declined usage of these items. Advanced Care Planning Face to Face Time: 16 minutes. Charges/Coding Visit Charges Inpatient E&M: 49648 Init Hosp L3 Procedures Hospitalists Procedures: 41547 Advncd Care Plan 30 Min
[2025-02-02 23:00] VITALS: BP 118/58; PULSE 74; RESP 20; TEMP 37.6; O2SAT 92
[2025-02-02 23:06] VITALS: BP 118/58; PULSE 74; RESP 20; TEMP 37.6; O2SAT 92
[2025-02-02 23:47] LABS: CRP 94.50 mg/L (0.0-3.0); Magnesium 0.9 mg/dL (1.5-2.2)
[2025-02-03] VITALS (12 sets, daily range): BP systolic 114–127; BP diastolic 52–83; PULSE 60–88; RESP 16–20; TEMP 36.4–37.2; O2SAT 86–97; BMI 34.9; BMI 35.4
[2025-02-03] MEDS: Magnesium Sulfate 4gm/100mL 4 GM/100 ML IV.SOLN. IV (00:11)
--- OUTSIDE RECORDS SUMMARY | 2025-02-03 00:16 | XMS RPT_ITS | CCD ---
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 Luis Bajwa Primary Care Provider [phone] Dr. Amada Queen Admit Provider Dr. Amada [...] Dr. Luis Caldera Primary Care Provider [phone] Dr. Karen Aly Admit Provider Jermain, Dr. [...] Dr. Gabriel Giraldo Attending Provider Dr. Gabriel Giarldo Other Provider Dr. Dandy Sauer Emergency Provider Earnest, Dr. Davis Admit Provider Dr. Ryan Tinoco Attending Provider Earnest, Dr. Davis Other Provider Roxann, Dr. Hatfield Attending Provider Dr. Lizzeth Riggs Other Provider Dr. Lizzeth Riggs Attending Provider Carolyn LOZA, DENIA Damon Attending Provider Dr. Syed Allen Emergency Provider [phone] Dr. Yisel Rendon Attending Provider Dr. Yisel [...] Attending Provider Dr. Smith Leija Other Provider [phone] Dr. Ryan Tinoco Referring Provider Dr. Júnior Chandra Attending Provider Dr. úJnior Chandra Referring Provider Dr. Karen Aly Referring Provider Dr. Caryl Mcdermott Referring Provider Dr. Smith Leija Referring Provider Marcos DANIEL, [...] Care Provider Dr. Syed Allen Emergency Provider [phone] Dr. Karen Aly Admit Provider Dr. Karen Aly Other Provider Dr. Yiesl Rendon Attending Provider Dr. Yisel Rendon Other Provider Roxann, Dr. Hatfield Attending Provider Dr. Caryl Mcdermott Referring Provider Dr. Júnior Chandra Attending Provider Dr. Júnior Chandra Referring Provider Dr. Dandy Sauer Emergency Provider Dr. Luis Caldear Primary Care Provider Dr. Syed Allen Emergency Provider Dr. Karen Aly Admit Provider Dr. Karen Aly Other Provider Dr. Yisel Rendon Attending Provider Dr. Yisel Rendon Other Provider Dr. Olga Lidia Rasheed Other Provider Dr. Luis Caldera Primary Care Provider Dr. Luis Caldera Referring Provider Debi Wetzel Attending Provider Unavailable Marcos SOCIAL WORK JOB TITLES, GURPREETC Ann Attending Provider Dr. Luis Caldera Primary Care Provider [phone] Dr. uLis Caldera Referring Provider Dr. Olga Lidia Rasheed Attending Provider Verenice COLBERT, Dr. Smith Primary Care Provider Rosita COLBERT, Walter Attending Provider Unavailable Rosita COLBERT, Walter Referring Provider Unavailable Verenice COLBERT, Dr. Smith Referring Provider Wili OCLBERT, Dr. Duggan Attending Provider Deperro OLS, Walter Attending Unavailable Bursley, Luis Primary Care Unavailable Bursley, Luis Primary Care Unavailable Deperro OLS, Walter Attending Unavailable Bursley, Luis Primary Care Unavailable Deperro OLS, Walter Attending Unavailable Deperro OLS, Walter Attending Unavailable Bursley, Luis Primary Care Unavailable Deperro OLS, Walter Referring Unavailable Bursley, Luis Primary Care Unavailable Deperro OLS, Walter Attending Unavailable Deperro OLS, Walter Attending Unavailable Deperro OLS, Walter Referring Unavailable Bursley, Luis Primary Care Unavailable Deperro OLS, Walter Attending Unavailable Deperro OLS, Walter Referring Unavailable Bursley, Luis Primary Care Unavailable Deperro OLS, Walter Attending Unavailable Deperro OLS, Walter Referring Unavailable Bursley, Luis Primary Care Unavailable Deperro OLS, Walter Attending Unavailable Bursley, Luis Primary Care Unavailable Deperro OLS, Walter Referring Unavailable Bursley, Luis Primary Care Unavailable Deperro OLS, Walter Attending Unavailable Bursley, Luis Primary Care Unavailable Deperro OLS, Walter Attending Unavailable Bursley, Luis Primary Care Unavailable Deperro OLS, Walter Attending Unavailable Deperro OLS, Walter Attending Unavailable Deperro [...] Kee Merritt Attending Unavailable Deperro OLS, Walter Attending Unavailable Bursley, Luis Primary Care Unavailable Wili, Olga Lidia Attending Unavailable Bursley, Luis Referring Unavailable Bursley, Luis Primary Care Unavailable Bursley, Luis Primary Care Unavailable Deperro OLS, Walter Attending Unavailable Wili, Olga Lidia Attending Unavailable Bursley, Luis Referring Unavailable Bursley, Luis Primary Care Unavailable Deperro OLS, Walter Attending Unavailable Bursley, Luis Primary Care Unavailable Bursley, Luis Primary Care Unavailable Deperro OLS, Walter Attending Unavailable Deperro OLS, Walter Attending Unavailable Bursley, Luis Primary Care Unavailable Allergies Allergy Classification Reported Allergen(s) Allergy Type Date of Onset Reaction(s) Facility (20 sources) pantoprazole Drug Allergy 09-24-2019 Diarrhea [facility] (20 sources) Propofol Drug Allergy 12-06-2021 Other [facility] Comment on above: GETS AGGRESSIVE (1 source) Propofol Drug Allergy 10-12-2024 [facility] Repository Medications Current Medications Medication Drug [...] Comment on above: TAKE 1 TABLET BY [facility] ONCE DAILY. FOR CHOLESTEROL. bisacodyl 10 mg [...] above: Take 1 capsule by [facility] one time a week. docusate sodium 50 mg / sennosides, correction 8.6 mg oral tablet (12 sources) Start: 01-26-2023 Start: 01-26-2023 take [address] [facility] twice daily Sennosides-Docusate Sodium (Stool Softener-Stimulant Laxat) [...] Insulin Analog Start: 01-21-2023 Start: 05-22-2018 End: 01-08-2023 Insulin Lispro (Humalog [...] on above: Take 1 tablet by sajan once daily. melatonin 3 mg oral tablet (20 sources) Start: 01-08-2023 End: 02-10-2023 take 1 tablet by mouth at bedtime Melatonin 3 mg Tablet Active 3 mg PO AT BEDTIME February 10, 2023 12:00am Start: 01-08-2023 End: 02-10-2023 memantine hydrochloride 10 mg oral tablet (20 sources) T-clqzkr-K-aspartate Receptor Antagonist Start: 02-13-2023 take 1 tablet by mouth twice daily Memantine 10 mg Tablet Active 10 mg PO TWICE A DAY 0 February 13, 2023 12:00am Start: 01-26-2023 End: [...] above: Take [address] [facility] daily at bedtime. (12 sources) Start: 01-21-2023 [...] once daily. Take 1 tablet by sajan th once daily. B cmplx 4/vit D3/C/folic/zinc (VITAL-D [...] 22, 2018 1:00am January 08, 2023 11:53am [place] Start: 03-24-2018 End: 04-01-2018 Dulaglutide (Trulicity) 1.5 [...] Enzyme Inhibitor Start: 09-17-19 14 End: 09-20-19 take 1 tablet by mouth once daily [...] MG tab let Discontinued 7.5 mg PO SUTUWETHFRSA May 22, 2018 2:58pm February 13, 2023 2:15pm Start: 09-19-2013 End: 02-13-2023 take 1 tablet by mouth once daily Warfarin (Jantoven) 5 MG tablet Discontinued 5 mg PO DAILY September 19, 2013 1:00am May 22, 2018 2:58pm Comment on above: 10 mg Saturday and Sat, 7.5 mg all other days. Patient has INR drawn bi-weekly. 10 mg Saturday and Sat nes, 7.5 mg all other days or as [...] not had a recurrence. Chronic kidney disease (2 sources) Chronic kidney disease; Translations: [Chronic kidney disease, [...] Coronary atherosclerosis; Translations: [Atherosclerotic heart disease of [place] coronary artery without angina pectoris] Chronic Deficiency and other anemia (2 sources) Iron deficiency anemia secondary to blood loss (chronic); Translations: [Iron deficiency anemia secondary to blood loss (chronic)] Onset: 4 Chronic Deficiency and other anemia (20 sources) [...] sources) Long-term current use of anticoagulant; Translations: [alf (current) use of anticoagulants] Onset: 8 11-06-2018 [...] Translations: [Atherosclerosis of aorta] Onset: 4 Chronic Pulmonary heart disease (20 sources) Pulmonary embolism; Translations: [Other pulmonary embolism without acute cor pulmonale] Episodic Residual codes; unclassified (20 sources) History [...] radiculopathy; Translations: [Radiculopathy, lumbar region] Onset: 03-20-2019 Episodic Syncope (20 sources) Syncope; Translations: [Syncope and collapse] Episodic Unclassified (1 source) Low back pain, unspecified; Translations: [Low back pain, unspecified] Onset: 4 Urinary tract infections (20 sources) Urinary tract [...] 03-20-2019 03-20-2019 Episodic Other aftercare (2 sources) 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; Translations: [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] Onset: 03-10-2024 Episodic Other nervous system disorders (20 sources) Abnormal gait due to impairment of balance; Translations: [Other abnormalities of gait and mobility] Onset: 01-12-2022 Episodic Unclassified (20 sources) RBBB (right bundle 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) 12-27-2021 Results Test Name Value Interpretation Reference Range Facility CBC-Complete Blood Cnt No Di ffon 12-22-2024 Erythrocyte distribution width (RBC) [Ratio] 13.5 % Normal 11.6-14.6 [facility] Comment on above: Order Comment: 215.2 Performed By: #### [id number] #### [facility] [address] [place], [address] Hematocrit (Bld) [Volume fraction] 37.9 % Low 40-54 [facility] Comment on above: Order Comment: 215.2 Performed By: #### [id number] #### [facility] [address] [place], [address] Hemoglobin (Bld) [Mass/Vol] 12.4 g/dL Low 13.0-16. 5 [facility] Comment on above: Order Comment: 215.2 Performed By: #### [id number] #### [facility] [address] [place], [address] MCH (RBC) [Entitic mass] 28.0 pg Normal 27.0-32.0 [facility] Comment on above: Order Comment: 215.2 Performed By: #### [id number] #### [facility] [address] [place], [address] MCHC (RBC) [Mass/Vol] 32.7 g/dL Normal 32-36 [facility] Comment on above: Order Comment: 215.2 Performed By: #### [id number] #### [facility] [address] [place], [address] MCV (RBC) [Entitic vol] 85.6 fL Normal 80-94 [facility] Comment on above: Order Comment: 215.2 Performed By: #### [id number] #### [facility] [address] [place], [address] Platelet mean volume (Bld) [Entitic vol] 9.5 fL Normal 6.2-12.0 [facility] Comment on above: Order Comment: 215.2 Performed By: #### [id number] #### [facility] [address] [place], [address] Platelets (Bld) [#/Vol] 214 10*3/uL Normal 150-450 [facility] Comment on above: Order Comment: 215.2 Performed By: #### L [id number] #### [facility] [address] [place], [address] RBC (Bld) [#/Vol] 4.43 10*6/uL Low 4.6-6.2 [facility] Comment on above: Order Comment: 215.2 Performed By: #### [id number] #### [facility] [address] [place], [address] RDW SD 41.9 fl Normal 35.1-43.9 [facility] Comment on above: Order Comment: 215.2 Performed By: #### L [id number] #### [facility] [address] [place], [address] WBC (Bld) [#/Vol] 9.4 10*3/uL Normal 4.4-11.0 [facility] Comment on above: Order Comment: 215.2 Performed By: #### L [id number] #### [facility] [address] [place], [address] Comprehensive Metabolic Prof [facility] 12-22-2024 Albumin [Mass/Vol] 3.6 g/dL Normal 3.4-4.8 [facility] Comment on above: Order Comment: 215.2 Performed By: #### L [id number] #### [facility] [address] [place], [address] Albumin/Globulin [Mass ratio] 1.7 {ratio} Normal 0.9-2.4 [facility] Comment on above: Order Comment: 215.2 Performed By: #### L [id number] #### [facility] [address] [place], [address] ALK PHOS 104 U/L Normal 40-129 [facility] Comment on above: Order Comment: 215.2 Performed By: #### [id number] #### [facility] [address] [place], [address] ALT [Catalytic activity/Vol] 13 U/L Normal <=46 [facility] Comment on above: Order Comment: 215.2 Performed By: #### [id number] #### [facility] [address] [place], [address] AST [Catalytic activity/Vol] 14 U/L Normal <=37 [facility] Comment on above: Order Comment: 215.2 Performed By: #### L [id number] #### [facility] [address] [place], [address] Bilirubin [Mass/Vol] 0.43 mg/dL Normal 0.00-1.30 [facility] Comment on above: Order Comment: 215.2 Performed By: #### L [id number] #### [facility] [address] [place], [address] BUN/CRE 19.8 RATIO Normal 10-20 [facility] Comment on above: Order Comment: 215.2 Performed By: #### L [id number] #### [facility] [address] [place], [address] Calcium [Mass/Vol] 9.5 mg/dL Normal 7.6-11.0 [facility] Comment on above: Order Comment: 215.2 Performed By: #### L [id number] #### [facility] [address] [place], [address] Chloride [Moles/Vol] 103 mmol/L Normal 98-108 [facility] Comment on above: Order Comment: 215.2 Performed By: #### L [id number] #### [facility] [address] [place], [address] CO2 [Moles/Vol] 26.7 mmol/L Normal 21.0-32.0 [facility] Comment on above: Order Comment: 215.2 Performed By: #### L [id number] #### [facility] [address] [place], [address] Creatinine [Mass/Vol] 1.04 mg/dL Normal 0.70-1.20 [facility] Comment on above: Order Comment: 215.2 Performed By: #### L [id number] #### [facility] [address] [place], [address] GAP 10 Normal 5-15 [facility] Comment on above: Order Comment: 215.2 Performed By: #### L [id number] #### [facility] [address] [place], [address] GFR/1.73 sq M.predicted among non-blacks MDRD (S/P/Bld) [Vol rate/Area] 74 mL/min/{1.73_m2} Normal >60 [facility] Comment on above: Order Comment: 215.2 Result Comment: mL/m in/1.73m2 CKD-EPI Creatinine Equation (2020) Performed By: #### L [id number] #### [facility] [address] [place], [address] Globulin (S) [Mass/Vol] 2.2 g/dL Normal 2.2-4.2 [facility] Comment on above: Order Comment: 215.2 Performed By: #### L [id number] #### [facility] [address] [place], [address] Glucose [Mass/Vol] 131 mg/dL High 70-99 [facility] Comment on above: Order Comment: 215.2 Performed By: #### L [id number] #### [facility] [address] [place], [address] Potassium [Moles/Vol] 4.2 mmol/L Normal 3.3-5.1 [facility] Comment on above: Order Comment: 215.2 Performed By: #### L [id number] #### [facility] [address] [place], [address] Sodium [Moles/Vol] 141 mmol/L Normal 133-145 [facility] Comment on above: Order Comment: 215.2 Performed By: #### L [id number] #### [facility] [address] [place], [address] T PROT 5.8 g/dL Low 5.9-8.4 [facility] Comment on above: Order Comment: 215.2 Performed By: #### L [id number] #### [facility] [address] [place], [address] Urea nitrogen [Mass/Vol] 21 mg/dL High 4-19 [facility] Comment on above: Order Comment: 215.2 Performed By: #### L [id number] #### [facility] [address] [place], [address] Hemoglobin A1con 12-22-2024 HbA1c (Bld) [Mass fraction] 7.0 % High <=5.6 [facility] Comment on above: Order Comment: 215.2 Result Comment: Norm al < 5.7 % Prediabetic 5.7 - 6.4 % Diabetic >or= 6.5 % Please note range changes. Performed By: #### L [id number] #### [facility] [address] [place], [place], [id number] Vitamin D,25 Hydroxyon 12-16 Vitamin D 25-OH 31.8 ng/mL Normal 30-100 [facility] Comment on above: Order Comment: 215.2 Result Comment: Laure min D Status Deficiency: <20 ng/mL (50nmol/L) Insufficiency: 20-30 ng/mL (50-75 nmol/L) Sufficiency: 30-100 ng/mL (75-250 nmol/L) Toxicity: >100 ng/mL (>250 nmol/L) Performed By: #### L [id number] #### [facility] [address] [place], [place], [address] Urine Cultureon 11-25-2024 URC Culture exhibits no growth. Normal [facility] Comment on above: Performed By: #### L [id number], [id number], [id number] #### [facility] [address] [place], [place], [address] CBC-Complete Blood Cnt No Di ffon 11-24-2024 Erythrocyte distribution width (RBC) [Ratio] 13.4 % Normal 11.6-14.6 [facility] Comment on above: Order Comment: 215.2 Performed By: #### L [id number] #### [facility] [address] [place], [place], [address] Hematocrit (Bld) [Volume fraction] 38.0 % Low 40-54 [facility] Comment on above: Order Comment: 215.2 Performed By: #### L [id number] #### [facility] [address] [place], [address] Hemoglobin (Bld) [Mass/Vol] 12.1 g/dL Low 13.0-16. 5 [facility] Comment on above: Order Comment: 215.2 Performed By: #### L [id number] #### [facility] [address] [place], [address] MCH (RBC) [Entitic mass] 27.6 pg Normal 27.0-32.0 [facility] Comment on above: Order Comment: 215.2 Performed By: #### L [id number] #### [facility] [address] [place], [address] MCHC (RBC) [Mass/Vol] 31.8 g/dL Low 32-36 [facility] Comment on above: Order Comment: 215.2 Performed By: #### L [id number] #### [facility] [address] [place], [address] MCV (RBC) [Entitic vol] 86.6 fL Normal 80-94 [facility] Comment on above: Order Comment: 215.2 Performed By: #### L [id number] #### [facility] [address] [place], [address] Platelet mean volume (Bld) [Entitic vol] 9.4 fL Normal 6.2-12.0 [facility] Comment on above: Order Comment: 215.2 Performed By: #### L [id number] #### [facility] [address] [place], [address] Platelets (Bld) [#/Vol] 200 10*3/uL Normal 150-450 [facility] Comment on above: Order Comment: 215.2 Performed By: #### L [id number] #### [facility] [address] [place], [address] RBC (Bld) [#/Vol] 4.39 10*6/uL Low 4.6-6.2 [facility] Comment on above: Order Comment: 215.2 Performed By: #### L [id number] #### [facility] [address] [place], [address] RDW SD 41.4 fl Normal 35.1-43.9 [facility] Comment on above: Order Comment: 215.2 Performed By: #### L [id number] #### [facility] [address] [place], [address] WBC (Bld) [#/Vol] 8.9 10*3/uL Normal 4.4-11.0 [facility] Comment on above: Order Comment: 215.2 Performed By: #### L [id number] #### [facility] [address] [place], [address] Comprehensive Metabolic Prof wyon 11-24-2024 Albumin [Mass/Vol] 3.3 g/dL Low 3.4-4.8 [facility] Comment on above: Order Comment: 215.2 Performed By: #### L [id number], [id number], [id number] #### [facility] [address] [place], [address] Albumin/Globulin [Mass ratio] 1.6 {ratio} Normal 0.9-2.4 [facility] Comment on above: Order Comment: 215.2 Performed By: #### L [id number], [id number], [id number] #### [facility] [address] [place], [address] ALK PHOS 101 U/L Normal 40-129 [facility] Comment on above: Order Comment: 215.2 Performed By: #### L [id number], [id number], [id number] #### [facility] [address] [place], [address] ALT [Catalytic activity/Vol] 14 U/L Normal <=46 [facility] Comment on above: Order Comment: 215.2 Performed By: #### L [id number], [id number], [id number] #### [facility] [address] [place], [address] AST [Catalytic activity/Vol] 16 U/L Normal <=37 [facility] Comment on above: Order Comment: 215.2 Performed By: #### L [id number], [id number], [id number] #### [facility] [address] [place], [address] Bilirubin [Mass/Vol] 0.34 mg/dL Normal 0.00-1.30 [facility] Comment on above: Order Comment: 215.2 Performed By: #### L [id number], [id number], [id number] #### [facility] [address] [place], [address] BUN/CRE 19.5 RATIO Normal 10-20 [facility] Comment on above: Order Comment: 215.2 Performed By: #### L [id number], [id number], [id number] #### [facility] [address] [place], [address] Calcium [Mass/Vol] 8.9 mg/dL Normal 7.6-11.0 [facility] Comment on above: Order Comment: 215.2 Performed By: #### L [id number], [id number], [id number] #### [facility] [address] [place], [address] Chloride [Moles/Vol] 105 mmol/L Normal 98-108 [facility] Comment on above: Order Comment: 215.2 Performed By: #### L [id number], [id number], [id number] #### [facility] [address] [place], [address] CO2 [Moles/Vol] 21.7 mmol/L Normal 21.0-32.0 [facility] Comment on above: Order Comment: 215.2 Performed By: #### L [id number], [id number], [id number] #### [facility] [address] [place], [address] Creatinine [Mass/Vol] 1.15 mg/dL Normal 0.70-1.20 [facility] Comment on above: Order Comment: 215.2 Performed By: #### L [id number], [id number], [id number] #### [facility] [address] [place], [address] GAP 14 Normal 5-15 [facility] Comment on above: Order Comment: 215.2 Performed By: #### L [id number], [id number], L100.0500 #### [facility] [address] [place], [address] GFR/1.73 sq M.predicted among non-blacks MDRD (S/P/Bld) [Vol rate/Area] 66 mL/min/{1.73_m2} Normal >60 [facility] Comment on above: Order Comment: 215.2 Result Comment: mL/m in/1.73m2 CKD-EPI Creatinine Equation (2020) Performed By: #### L [id number], [id number], L100.0500 #### [facility] [address] [place], [address] Globulin (S) [Mass/Vol] 2.0 g/dL Low 2.2-4.2 [facility] Comment on above: Order Comment: 215.2 Performed By: #### L [id number], [id number], [id number] #### [facility] [address] [place], [address] Glucose [Mass/Vol] 139 mg/dL High 70-99 [facility] Comment on above: Order Comment: 215.2 Performed By: #### L [id number], [id number], [id number] #### [facility] [address] [place], [address] Potassium [Moles/Vol] 4.2 mmol/L Normal 3.3-5.1 [facility] Comment on above: Order Comment: 215.2 Performed By: #### L [id number], [id number], [id number] #### [facility] [address] [place], [address] Sodium [Moles/Vol] 141 mmol/L Normal 133-145 [facility] Comment on above: Order Comment: 215.2 Performed By: #### L [id number], [id number], [id number] #### [facility] [address] [place], [address] T PROT 5.3 g/dL Low 5.9-8.4 [facility] Comment on above: Order Comment: 215.2 Performed By: #### L [id number], [id number], [id number] #### [facility] [address] [place], [address] Urea nitrogen [Mass/Vol] 22 mg/dL High 4-19 [facility] Comment on above: Order Comment: 215.2 Performed By: #### L [id number], [id number], [id number] #### [facility] [address] [place], [address] Urinalysis, Completeon 11-24 WBC 0-5 SEEN Normal 0-5 [facility] Comment on above: Order Comment: LEILA TER SPECIMEN Performed By: #### L [id number] #### [facility] [address] [place], [address] BACTERIA 0 SEEN Normal None Seen [facility] Comment on above: Order Comment: LEILA TER SPECIMEN Performed By: #### L [id number] #### [facility] [address] [place], [address] EPI,SQUAMOUS 0 SEEN Normal 0-5 [facility] Comment on above: Order Comment: LEILA TER SPECIMEN Performed By: #### L 9200.0000 #### [facility] [address] [place], [address] Mucus Ql (Urine sed) 0 SEEN Normal [facility] Comment on above: Order Comment: LEILA TER SPECIMEN Performed By: #### L [id number] #### [facility] [address] [place], [address] RBC 0 SEEN Normal 0-5 [facility] Comment on above: Order Comment: LEILA TER SPECIMEN Performed By: #### L [id number] #### [facility] [address] [place], [place], [address] CNPNon 11-06-2024 [place]ANNER Telephone (4CQ) RICHARD ROY ([id number]) 1945 M Date Time Provider Department 11/06/24 ABDULAZIZ CALDERA 4CQ During your visit today, we recorded the following information about you: Ann Raymond 11/06/2024 10:55 AM Signed Spoke with spouse as patient is over due for visit with PCP , stated patient is at [facility] [place]. We did not remove PCP. Abdulaziz Caldera [...] time a week. - blood sugar diagnostic (One True MediaTOUCH ULTRA TEST) test strip Test blood sugar(s) [...] Status:Closed by AMADA COHN on 11/06/24 Normal [facility] Cardiology Visit Reporton Cardiology Visit Report [facility] [address] [place], [place] [address] OFFICE VISIT Date of Service: 10/12/24 MR#: [id number] Acct: [id number] Name: RICHARD ROY Rep #: [id number] : 1945 Provider: Dr. 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 Normal [facility] Calculated very low density lipoprotein (VLDL) cholesterol measurementOrdered By: Walter Becker on 10-05-2024 VLDL Cholesterol 41 mg/dL High 5-40 [facility] LDL calc ser/plasOrdered By: Walter Becker on 10-05-2024 LDL Cholesterol, Calculated 31 mg/dL [facility] Comment on above: Xnpxmvzxso=477-651 m g/dL & Higher Dvei=505 mg/dL or greater Lipid Profileon 10-05-2024 CHOL:HDL 3.37 Normal [facility] Comment on above: Order Comment: 215.2 Performed By: #### L 500.4050, L501.9985, L100.0500 #### [facility] [address] [place], [address] Cholesterol [Mass/Vol] 103 mg/dL Normal <=200 [facility] Comment on above: Order Comment: 215.2 Result Comment: Chol esterol level, Desirable <200 mg/dL Borderline high cholesterol 200-239 mg/dL High cholesterol >=240 mg/dL Recommendations of the NCEP Adult Treatment Panel for the following risk-cutoff thresholds for the [place] population. Performed By: #### L 500.4050, L501.9985, L100.0500 #### [facility] [address] [place], [address] Cholesterol in HDL [Mass/Vol] 31 mg/dL Low [facility] Comment on above: Order Comment: 215.2 Result Comment: Stephanie onal Cholesterol Education Program (NCEP) guidelines: <40 mg/dL: Low HDL-cholesterol (major risk factor for CHD) >= 60 mg/dL: High HDL-cholesterol (negative risk factor for CHD) HDL-cholesterol is affected by a number of factors, e.g. smoking, exercise, hormones, sex and age. Performed By: #### L 500.4050, L501.9985, L100.0500 #### [facility] [address] [place], [address] Cholesterol in LDL [Mass/Vol] 31 mg/dL Normal [facility] Comment on above: Order Comment: 215.2 Result Comment: Bord tdxmgl=255-715 mg/dL Higher Hkjd=488 mg/dL or greater Performed By: #### L 500.4050, L501.9985, L100.0500 #### [facility] [address] [place], [address] Cholesterol in VLDL [Mass/Vol] 41 mg/dL High 5-40 [facility] Comment on above: Order Comment: 215.2 Performed By: #### L 500.4050, L501.9985, L100.0500 #### [facility] [address] [place], [address] Triglyceride [Mass/Vol] 207 mg/dL High [facility] Comment on above: Order Comment: 215.2 Result Comment: The drugs N-Acetylcysteine and Metamizole may falsely depress this assay. Normal range: <150 mg/dL Borderline High: 150-199 mg/dL High: 200-499 mg/dL Very High: >500 mg/dL Performed By: #### L 500.4050, L501.9985, L100.0500 #### [facility] [place] [address], [address] Screening total cholesterol/ high density lipoprotein (HDL) cholesterol ratioOrdered By: Walter Becker on 10-05-2024 Cholesterol.total/Cholester ol in HDL [Mass ratio] 3.37 {ratio} [facility] Serum or plasma cholesterol in HDL measurement (mass/volume)Ordered By: Walter Becker on 10-05-2024 Cholesterol in HDL [Mass/Vol] 31 mg/dL Low >40 [facility] Comment on above: National Cholesterol Education Program (NCEP) guidelines:<40 mg/dL: Low HDL-cholesterol (major risk factor for CHD)>= 60 mg/dL: High HDL-cholesterol (negative risk factor for CHD)HDL-cholesterol is affected by a number of factors, e.g. smoking, exercise, hormones, sex and age. Serum or plasma cholesterol measurement (mass/volume)Ordered By: Walter Becker on 10-05-2024 Cholesterol [Mass/Vol] 103 mg/dL <201 [facility] Comment on above: Cholesterol level, D esirable <200 mg/dLBorderline high cholesterol 200-239 mg/dLHigh cholesterol >=240 mg/dLRecommendations of the NCEP Adult Treatment Panel for the following risk-cutoff thresholds for the [place] population. Triglycerides measurementOrd ered By: Walter Becker on 10-05-2024 Triglyceride [Mass/Vol] 207 mg/dL High <199 [facility] Comment on above: The drugs N-Acetylcy steine and Metamizole may falsely depress this assay. Normal range: <150 mg/dLBorderline High: 150-199 mg/dLHigh: 200-499 mg/dLVery High: >500 mg/dL Anion gap in Serum or Plasma Ordered By: Walter Becker on 09-29-2024 Anion gap [Moles/Vol] 11 mmol/L 5-15 [facility] BUN/creatinine ratioOrdered By: Walter Becker on 09-29-2024 Urea nitrogen/Creatinine [Mass ratio] 20.5 mg/mg High 10-20 [facility] Bilirubin, totalOrdered By: Wlater Becker on 09-29-2024 Bilirubin [Mass/Vol] 0.31 mg/dL 0.00-1.30 [facility] CBC-Complete Blood Cnt No Di ffon 09-29-2024 Erythrocyte distribution width (RBC) [Ratio] 13.7 % Normal 11.6-14.6 [facility] Comment on above: Order Comment: 215.2 Performed By: #### L 500.4050, L501.9985, L100.0500 #### [facility] [address] [place], [address] Hematocrit (Bld) [Volume fraction] 37.0 % Low 40-54 [facility] Comment on above: Order Comment: 215.2 Performed By: #### L 500.4050, L501.9985, L100.0500 #### [facility] [address] [place], [address] Hemoglobin (Bld) [Mass/Vol] 11.8 g/dL Low 13.0-16. 5 [facility] Comment on above: Order Comment: 215.2 Performed By: #### L 500.4050, L501.9985, L100.0500 #### [facility] [address] [place], [address] MCH (RBC) [Entitic mass] 27.9 pg Normal 27.0-32.0 [facility] Comment on above: Order Comment: 215.2 Performed By: #### L 500.4050, L501.9985, L100.0500 #### [facility] [address] [place], [address] MCHC (RBC) [Mass/Vol] 31.9 g/dL Low 32-36 [facility] Comment on above: Order Comment: 215.2 Performed By: #### L 500.4050, L501.9985, L100.0500 #### [facility] [address] [place], [address] MCV (RBC) [Entitic vol] 87.5 fL Normal 80-94 [facility] Comment on above: Order Comment: 215.2 Performed By: #### L 500.4050, L501.9985, L100.0500 #### [facility] [address] [place], [address] Platelet mean volume (Bld) [Entitic vol] 9.6 fL Normal 6.2-12.0 [facility] Comment on above: Order Comment: 215.2 Performed By: #### L 500.4050, L501.9985, L100.0500 #### [facility] [address] [place], [address] Platelets (Bld) [#/Vol] 226 10*3/uL Normal 150-450 [facility] Comment on above: Order Comment: 215.2 Performed By: #### L 500.4050, L501.9985, L100.0500 #### [facility] [address] [place], [address] RBC (Bld) [#/Vol] 4.23 10*6/uL Low 4.6-6.2 [facility] Comment on above: Order Comment: 215.2 Performed By: #### L 500.4050, [id number], L100.0500 #### [facility] [address] [place], [address] RDW SD 43.7 fl Normal 35.1-43.9 [facility] Comment on above: Order Comment: 215.2 Performed By: #### L 500.4050, [id number], L100.0500 #### [facility] [address] [place], [address] WBC (Bld) [#/Vol] 8.9 10*3/uL Normal 4.4-11.0 [facility] Comment on above: Order Comment: 215.2 Performed By: #### L 500.4050, L501.9985, L100.0500 #### [facility] [address] [place], [address] Carbon dioxide, total [Moles /volume] in Central venous bloodOrdered By: Walter Becker on 09-29-2024 CO2 [Moles/Vol] 25.6 mmol/L 21.0-32.0 [facility] Chloride assayOrdered By: Horner on 09-29-2024 Chloride [Moles/Vol] 104 mmol/L 98-108 [facility] Comprehensive Metabolic Prof ilon 09-29-2024 Albumin [Mass/Vol] 3.6 g/dL Normal 3.4-4.8 [facility] Comment on above: Order Comment: 215.2 Performed By: #### L 500.4050, L501.9985, L100.0500 #### [facility] [address] [place], [address] Albumin/Globulin [Mass ratio] 1.8 {ratio} Normal 0.9-2.4 [facility] Comment on above: Order Comment: 215.2 Performed By: #### L 500.4050, L501.9985, L100.0500 #### [facility] [address] [place], [address] ALK PHOS 101 U/L Normal 40-129 [facility] Comment on above: Order Comment: 215.2 Performed By: #### L 500.4050, [id number], L100.0500 #### [facility] [address] [place], [address] ALT [Catalytic activity/Vol] 19 U/L Normal <=46 [facility] Comment on above: Order Comment: 215.2 Performed By: #### L 500.4050, [id number], L100.0500 #### [facility] [address] [place], [address] AST [Catalytic activity/Vol] 15 U/L Normal <=37 [facility] Comment on above: Order Comment: 215.2 Performed By: #### L 500.4050, [id number], L100.0500 #### [facility] [address] [place], [address] Bilirubin [Mass/Vol] 0.31 mg/dL Normal 0.00-1.30 [facility] Comment on above: Order Comment: 215.2 Performed By: #### L 500.4050, [id number], L100.0500 #### [facility] [address] [place], [address] BUN/CRE 20.5 RATIO High 10-20 [facility] Comment on above: Order Comment: 215.2 Performed By: #### L 500.4050, [id number], L100.0500 #### [facility] [address] [place], [address] Calcium [Mass/Vol] 9.2 mg/dL Normal 7.6-11.0 [facility] Comment on above: Order Comment: 215.2 Performed By: #### L 500.4050, [id number], L100.0500 #### [facility] [address] [place], [address] Chloride [Moles/Vol] 104 mmol/L Normal 98-108 [facility] Comment on above: Order Comment: 215.2 Performed By: #### L 500.4050, [id number], L100.0500 #### [facility] [address] [place], [address] CO2 [Moles/Vol] 25.6 mmol/L Normal 21.0-32.0 [facility] Comment on above: Order Comment: 215.2 Performed By: #### L 500.4050, [id number], L100.0500 #### [facility] [address] [place], [address] Creatinine [Mass/Vol] 1.10 mg/dL Normal 0.70-1.20 [facility] Comment on above: Order Comment: 215.2 Performed By: #### L 500.4050, [id number], L100.0500 #### [facility] [address] [place], [address] GAP 11 Normal 5-15 [facility] Comment on above: Order Comment: 215.2 Performed By: #### L 500.4050, [id number], L100.0500 #### [facility] [address] [place], [address] GFR/1.73 sq M.predicted among non-blacks MDRD (S/P/Bld) [Vol rate/Area] 70 mL/min/{1.73_m2} Normal >60 [facility] Comment on above: Order Comment: 215.2 Result Comment: mL/m in/1.73m2 CKD-EPI Creatinine Equation (2020) Performed By: #### L 500.4050, L501.9985, L100.0500 #### [facility] [address] [place], [address] Globulin (S) [Mass/Vol] 2.0 g/dL Low 2.2-4.2 [facility] Comment on above: Order Comment: 215.2 Performed By: #### L 500.4050, [id number], L100.0500 #### [facility] [address] [place], [address] Glucose [Mass/Vol] 155 mg/dL High 70-99 [facility] Comment on above: Order Comment: 215.2 Performed By: #### L 500.4050, L501.9985, L100.0500 #### [facility] [address] [place], [address] Potassium [Moles/Vol] 4.2 mmol/L Normal 3.3-5.1 [facility] Comment on above: Order Comment: 215.2 Performed By: #### L 500.4050, L501.9985, L100.0500 #### [facility] [address] [place], [address] Sodium [Moles/Vol] 141 mmol/L Normal 133-145 [facility] Comment on above: Order Comment: 215.2 Performed By: #### L 500.4050, L501.9985, L100.0500 #### [facility] [address] [place], [address] T PROT 5.6 g/dL Low 5.9-8.4 [facility] Comment on above: Order Comment: 215.2 Performed By: #### L 500.4050, [id number], L100.0500 #### [facility] [address] [place], [address] Urea nitrogen [Mass/Vol] 23 mg/dL High 4-19 [facility] Comment on above: Order Comment: 215.2 Performed By: #### L 500.4050, [id number], L100.0500 #### [facility] [address] [place], [address] Erythrocyte distribution wid th (RBC) [Ratio]Ordered By: Walter Becker on 09-29-2024 Erythrocyte distribution width (RBC) [Entitic vol] 43.7 fL 35.1-43.9 [facility] Erythrocyte distribution wid th ratioOrdered By: Walter Becker on 09-29-2024 Erythrocyte distribution width (RBC) [Ratio] 13.7 % 11.6-14.6 [facility] GFR/1.73 sq M.predicted kimberly g non-blacks MDRD (S/P/Bld) [Vol rate/Area]Ordered By: Walter Becker on 09-29-2024 Estimated GFR (MDRD) Non-Af Amer 70 >60 [facility] Comment on above: mL/min/1.73m2 CKD-EP I Creatinine Equation (2020) Hematocrit Auto (Bld) [Volum e fraction]Ordered By: Walter Becker on 09-29-2024 Hematocrit (Bld) [Volume fraction] 37.0 % Low 40-54 [facility] Hemoglobin A1con 09-29-2024 HbA1c (Bld) [Mass fraction] 6.6 % Normal <=5.6 [facility] Comment on above: Order Comment: 215.2 Performed By: #### L 500.4050, L501.9985, L100.0500 #### [facility] [address] [place], [place], [address] Hemoglobin A1c percentageOrd ered By: Walter Becker on 09-29-2024 HbA1c (Bld) [Mass fraction] 6.6 % >5.7 [facility] Hemoglobin measurementOrdere d By: Walter Becker on 09-29-2024 Hemoglobin (Bld) [Mass/Vol] 11.8 g/dL Low 13.0-16. 5 [facility] - Chemistry and C hemistry - challengeOrdered By: Walter Becker on 09-29-2024 AST [Catalytic activity/Vol] 15 U/L <38 [facility] MCV (mean corpuscular volume ) determinationOrdered By: Walter Becker on 09-29-2024 MCV (RBC) [Entitic vol] 87.5 fL 80-94 [facility] Mean corpuscular hemoglobin (MCH) determinationOrdered By: Walter Becker on 09-29-2024 MCH (RBC) [Entitic mass] 27.9 pg 27.0-32.0 [facility] Mean corpuscular hemoglobin concentration (MCHC) determinationOrdered By: Walter Becker on 09-29-2024 MCHC (RBC) [Mass/Vol] 31.9 g/dL Low 32-36 [facility] Mean platelet volume determi nationOrdered By: Walter Becker on 09-29-2024 Platelet mean volume (Bld) [Entitic vol] 9.6 fL 6.2-12.0 [facility] Platelet countOrdered By: Horner on 09-29-2024 Platelets (Bld) [#/Vol] 226 10*3/uL 150-450 [facility] Potassium (Unsp spec) [Mass/ Vol]Ordered By: Walter Becker on 09-29-2024 Potassium [Moles/Vol] 4.2 mmol/L 3.3-5.1 [facility] RBC Auto (Bld) [#/Vol]Ordere d By: Walter Becker on 09-29-2024 RBC (Bld) [#/Vol] 4.23 10*6/uL Low 4.6-6.2 [facility] Serum creatinine measurement (mass/volume)Ordered By: Walter Becker on 09-29-2024 Creatinine [Mass/Vol] 1.10 mg/dL 0.70-1.20 [facility] Serum globulin measurementOr dered By: Walter Becker on 09-29-2024 Globulin (S) [Mass/Vol] 2.0 g/dL Low 2.2-4.2 [facility] Serum glucose measurement (m ass/volume)Ordered By: Walter Becker on 09-29-2024 Glucose [Mass/Vol] 155 mg/dL High 70-99 [facility] Serum or plasma alanine davis otransferase (ALT) measurementOrdered By: Walter Becker on 09-29-2024 ALT [Catalytic activity/Vol] 19 U/L <47 [facility] Serum or plasma albumin antoine urement (mass/volume)Ordered By: Walter Becker on 09-29-2024 Albumin [Mass/Vol] 3.6 g/dL 3.4-4.8 [facility] Serum or plasma albumin/glob ulin mass ratioOrdered By: Walter Becker on 09-29-2024 Albumin/Globulin [Mass ratio] 1.8 {ratio} 0.9-2.4 [facility] Serum or plasma alkaline marilin sphatase measurementOrdered By: Walter Becker on 09-29-2024 ALP [Catalytic activity/Vol] 101 U/L 40-129 [facility] Serum or plasma calcium antoine urement (mass/volume)Ordered By: Walter Becker on 03-18-2025 Calcium [Mass/Vol] 9.2 mg/dL 7.6-11.0 [facility] Serum or plasma urea nitroge n measurement (mass/volume)Ordered By: Walter Becker on 09-29-2024 Urea nitrogen [Mass/Vol] 23 mg/dL High 4-19 [facility] Sodium levelOrdered By: Walter Becker on 09-29-2024 Sodium [Moles/Vol] 141 mmol/L 133-145 [facility] Total proteinOrdered By: Crystal Becker on 09-29-2024 Protein [Mass/Vol] 5.6 g/dL Low 5.9-8.4 [facility] White blood cell (WBC) count Ordered By: Walter Becker on 09-29-2024 WBC (Bld) [#/Vol] 8.9 10*3/uL 4.4-11.0 [facility] Urine Cultureon 08-05-2024 URC Culture exhibits no growth. Normal [facility] Comment on above: Performed By: #### L 500.4050, L501.9985, L100.0500 #### [facility] [address] [place], [address] Albumin to globulin ratioOrd ered By: Walter Becker on 08-04-2024 Albumin/Globulin [Mass ratio] 1.0 {ratio} 0.9-2.4 [facility] Bilirubin Test strip Ql (U)O rdered By: Walter Becker on 08-04-2024 Bilirubin Ql (U) Negative Negative [facility] Bilirubin, totalOrdered By: Walter Becker on 08-04-2024 Bilirubin [Mass/Vol] 0.50 mg/dL 0.20-1.00 [facility] Comment on above: For patients on eltr ombopag therapy, use of Dimension [place] TBIL is not recommended. Blood urea nitrogen (BUN)/cr eatinine ratioOrdered By: Walter Becker on 08-04-2024 Urea nitrogen/Creatinine [Mass ratio] 21.1 mg/mg High 10-20 [facility] CBC-Complete Blood Cnt No Di ffon 08-04-2024 Erythrocyte distribution width (RBC) [Ratio] 13.0 % Normal 11.6-14.6 [facility] Comment on above: Order Comment: 215.2 Performed By: #### L 500.4050, L501.9985, L100.0500 #### [facility] [address] [place], [address] Hematocrit (Bld) [Volume fraction] 41.3 % Normal 40-54 [facility] Comment on above: Order Comment: 215.2 Performed By: #### L 500.4050, [id number], L100.0500 #### [facility] [address] [place], [address] Hemoglobin (Bld) [Mass/Vol] 12.9 g/dL Low 13.0-16. 5 [facility] Comment on above: Order Comment: 215.2 Performed By: #### L 500.4050, [id number], L100.0500 #### [facility] [address] [place], [address] MCH (RBC) [Entitic mass] 27.3 pg Normal 27.0-32.0 [facility] Comment on above: Order Comment: 215.2 Performed By: #### L 500.4050, L501.9985, L100.0500 #### [facility] [address] [place], [address] MCHC (RBC) [Mass/Vol] 31.2 g/dL Low 32-36 [facility] Comment on above: Order Comment: 215.2 Performed By: #### L 500.4050, [id number], L100.0500 #### [facility] [address] [place], [address] MCV (RBC) [Entitic vol] 87.3 fL Normal 80-94 [facility] Comment on above: Order Comment: 215.2 Performed By: #### L 500.4050, [id number], L100.0500 #### [facility] [address] [place], [address] Platelet mean volume (Bld) [Entitic vol] 9.3 fL Normal 6.2-12.0 [facility] Comment on above: Order Comment: 215.2 Performed By: #### L 500.4050, [id number], L100.0500 #### [facility] [address] [place], [address] Platelets (Bld) [#/Vol] 295 10*3/uL Normal 150-450 [facility] Comment on above: Order Comment: 215.2 Performed By: #### L 500.4050, [id number], L100.0500 #### [facility] [address] [place], [address] RBC (Bld) [#/Vol] 4.73 10*6/uL Normal 4.6-6.2 [facility] Comment on above: Order Comment: 215.2 Performed By: #### L 500.4050, [id number], L100.0500 #### [facility] [address] [place], [address] RDW SD 41.8 fl Normal 35.1-43.9 [facility] Comment on above: Order Comment: 215.2 Performed By: #### L 500.4050, [id number], L100.0500 #### [facility] [address] [place], [address] WBC (Bld) [#/Vol] 9.3 10*3/uL Normal 4.4-11.0 [facility] Comment on above: Order Comment: 215.2 Performed By: #### L 500.4050, [id number], L100.0500 #### [facility] [address] [place], [address] Carbon dioxide measurementOr dered By: Walter Becker on 08-04-2024 CO2 [Moles/Vol] 29.0 mmol/L 21.0-32.0 [facility] Chloride measurementOrdered By: Walter Becker on 08-04-2024 Chloride [Moles/Vol] 104 mmol/L 98-107 [facility] Comprehensive Metabolic Prof ilon 08-04-2024 Albumin [Mass/Vol] 3.5 g/dL Normal 3.2-5.0 [facility] Comment on above: Order Comment: 215.2 Performed By: #### L 500.4050, [id number], L100.0500 #### [facility] [address] [place], [address] Albumin/Globulin [Mass ratio] 1.0 {ratio} Normal 0.9-2.4 [facility] Comment on above: Order Comment: 215.2 Performed By: #### L 500.4050, [id number], L100.0500 #### [facility] [address] [place], [address] ALK P 125 U/L High 45-117 [facility] Comment on above: Order Comment: 215.2 Performed By: #### L 500.4050, [id number], L100.0500 #### [facility] [address] [place], [address] ALT [Catalytic activity/Vol] 19 U/L Normal 16-61 [facility] Comment on above: Order Comment: 215.2 Performed By: #### L 500.4050, [id number], L100.0500 #### [facility] [address] [place], [address] AST [Catalytic activity/Vol] 12 U/L Low 15-37 [facility] Comment on above: Order Comment: 215.2 Performed By: #### L 500.4050, [id number], L100.0500 #### [facility] [address] [place], [address] Bilirubin [Mass/Vol] 0.50 mg/dL Normal 0.20-1.00 [facility] Comment on above: Order Comment: 215.2 Result Comment: For patients on eltrombopag therapy, use of Dimension [place] TBIL is not recommended. Performed By: #### L [id number], L501.9985, L100.0500 #### [facility] [address] [place], [address] BUN/CRE 21.1 RATIO High 10-20 [facility] Comment on above: Order Comment: 215.2 Performed By: #### L [id number], [id number], L100.0500 #### [facility] [address] [place], [address] CA,Total 9.7 mg/dL Normal 8.5-10.1 [facility] Comment on above: Order Comment: 215.2 Performed By: #### L [id number], [id number], L100.0500 #### [facility] [address] [place], [address] Chloride [Moles/Vol] 104 mmol/L Normal 98-107 [facility] Comment on above: Order Comment: 215.2 Performed By: #### L [id number], [id number], L100.0500 #### [facility] [address] [place], [address] CO2 [Moles/Vol] 29.0 mmol/L Normal 21.0-32.0 [facility] Comment on above: Order Comment: 215.2 Performed By: #### L [id number], [id number], L100.0500 #### [facility] [address] [place], [address] Creatinine [Mass/Vol] 1.28 mg/dL Normal 0.70-1.30 [facility] Comment on above: Order Comment: 215.2 Result Comment: The validity of the calculated GFR GFRAA in patients over 70 years has not been determined. Clinical correlation is essential. Performed By: #### L 500.4050, [id number], L100.0500 #### [facility] [address] [place], [address] EST GFR - AA 70 mL/min Normal >60 [facility] Comment on above: Order Comment: 215.2 Result Comment: Afri can Haitian GFR Calc Performed By: #### L [id number], [id number], L100.0500 #### [facility] [address] [place], [address] GAP 7 Normal 5-15 [facility] Comment on above: Order Comment: 215.2 Performed By: #### L [id number], [id number], L100.0500 #### [facility] [address] [place], [address] GFR/1.73 sq M.predicted among non-blacks MDRD (S/P/Bld) [Vol rate/Area] 58 mL/min/{1.73_m2} Low >60 [facility] Comment on above: Order Comment: 215.2 Result Comment: Non- GFR Calc Performed By: #### L 500.4050, [id number], L100.0500 #### [facility] [address] [place], [address] Globulin (S) [Mass/Vol] 3.5 g/dL Normal 2.2-4.2 [facility] Comment on above: Order Comment: 215.2 Performed By: #### L 500.4050, [id number], L100.0500 #### [facility] [address] [place], [address] Glucose [Mass/Vol] 128 mg/dL High 74-106 [facility] Comment on above: Order Comment: 215.2 Result Comment: Fast ing Glucose result greater than or equal to 126 mg/dL suggests DIABETES MELLITUS per A.D.A. criteria. Performed By: #### L 500.4050, [id number], L100.0500 #### [facility] [address] [place], [address] Potassium [Moles/Vol] 3.9 mmol/L Normal 3.5-5.1 [facility] Comment on above: Order Comment: 215.2 Performed By: #### L [id number], [id number], L100.0500 #### [facility] [address] [place], [address] Sodium [Moles/Vol] 140 mmol/L Normal 136-145 [facility] Comment on above: Order Comment: 215.2 Performed By: #### L [id number], [id number], L100.0500 #### [facility] [address] [place], [address] T PROT 7.0 g/dL Normal 6.4-8.2 [facility] Comment on above: Order Comment: 215.2 Performed By: #### L [id number], [id number], [id number] #### [facility] [address] [place], [address] Urea nitrogen [Mass/Vol] 27 mg/dL High 7-18 [facility] Comment on above: Order Comment: 215.2 Performed By: #### L [id number], [id number], [id number] #### [facility] [address] [place], [address] Epithelial cells.squamous LM Ql (Urine sed)Ordered By: Walter Becker on 08-04-2024 Epithelial cells.squamous LM.HPF (Urine sed) [#/Area] 0 /[HPF] 0-5 [facility] Erythrocyte distribution wid th (RBC) [Ratio]Ordered By: Walter Becker on 08-04-2024 Erythrocyte distribution width (RBC) [Entitic vol] 41.8 fL 35.1-43.9 [facility] Erythrocyte distribution wid th ratioOrdered By: Walter Becker on 08-04-2024 Erythrocyte distribution width (RBC) [Ratio] 13.0 % 11.6-14.6 [facility] Estimated glomerular filtrat ion rate (GFR) AmericanOrdered By: Walter Becker on 08-04-2024 Estimated GFR (MDRD) Amer 70 mL/min >60 [facility] Comment on above: GFR Calc Glomerular filtration rate ( GFR) estimationOrdered By: Walter Becker on 08-04-2024 Estimated GFR (MDRD) Non-Af Amer 58 mL/min Low >60 [facility] Comment on above: Non- GFR Calc Glucose Ql (U)Ordered By: Horner on 08-04-2024 Urine Glucose (UA) Normal mg/dl Normal [facility] Glucose measurementOrdered B y: Walter Becker on 08-04-2024 Glucose [Mass/Vol] 128 mg/dL High 74-106 [facility] Comment on above: Fasting Glucose resu lt greater than or equal to 126 mg/dL suggests DIABETES MELLITUS per A.D.A. criteria. Hematocrit Auto (Bld) [Volum e fraction]Ordered By: Walter Becker on 08-04-2024 Hematocrit (Bld) [Volume fraction] 41.3 % 40-54 [facility] Hemoglobin measurementOrdere d By: Walter Becker on 08-04-2024 Hemoglobin (Bld) [Mass/Vol] 12.9 g/dL Low 13.0-16. 5 [facility] Ketones Test strip Ql (U)Ord ered By: Walter Becker on 08-04-2024 Ketones Ql (U) Negative Negative [facility] - Chemistry and C hemistry - challengeOrdered By: Walter Becker on 08-04-2024 AST [Catalytic activity/Vol] 12 U/L Low 15-37 [facility] MCV (mean corpuscular volume ) determinationOrdered By: Walter Becker on 08-04-2024 MCV (RBC) [Entitic vol] 87.3 fL 80-94 [facility] Mean corpuscular hemoglobin (MCH) determinationOrdered By: Walter Becker on 08-04-2024 MCH (RBC) [Entitic mass] 27.3 pg 27.0-32.0 [facility] Mean corpuscular hemoglobin concentration (MCHC) determinationOrdered By: Walter Becker on 08-04-2024 MCHC (RBC) [Mass/Vol] 31.2 g/dL Low 32-36 [facility] Mean platelet volume determi nationOrdered By: Walter Becker on 08-04-2024 Platelet mean volume (Bld) [Entitic vol] 9.3 fL 6.2-12.0 [facility] Microscopic analysis of urin e for red blood cells (RBC)Ordered By: Walter Becker on 08-04-2024 Urine RBC 0 SEEN /hpf 0-5 [facility] Mucus LM Ql (Urine sed)Order ed By: Walter Becker on 08-04-2024 Mucus Ql (Urine sed) 0 SEEN /hpf [facility] Nitrite Test strip Ql (U)Ord ered By: Walter Becker on 08-04-2024 Nitrite Ql (U) Negative Negative [facility] Platelet countOrdered By: Horner on 08-04-2024 Platelets (Bld) [#/Vol] 295 10*3/uL 150-450 [facility] Potassium measurementOrdered By: Walter Becker on 08-04-2024 Potassium [Moles/Vol] 3.9 mmol/L 3.5-5.1 [facility] Protein Test strip Ql (U)Ord ered By: Walter Becker on 08-04-2024 Protein Ql (U) Negative Negative [facility] RBC Auto (Bld) [#/Vol]Ordere d By: Walter Becker on 08-04-2024 RBC (Bld) [#/Vol] 4.73 10*6/uL 4.6-6.2 [facility] Serum anion gap measurementO rdered By: Walter Becker on 08-04-2024 Anion gap [Moles/Vol] 7 mmol/L 5-15 [facility] Serum globulin measurementOr dered By: Walter Becker on 08-04-2024 Globulin (S) [Mass/Vol] 3.5 g/dL 2.2-4.2 [facility] Serum or plasma alanine davis otransferase (ALT) measurementOrdered By: Walter Becker on 08-04-2024 ALT [Catalytic activity/Vol] 19 U/L 16-61 [facility] Serum or plasma albumin antoine urement (mass/volume)Ordered By: Walter Becker on 08-04-2024 Albumin [Mass/Vol] 3.5 g/dL 3.2-5.0 [facility] Serum or plasma alkaline marilin sphatase measurementOrdered By: Walter Becker on 08-04-2024 ALP [Catalytic activity/Vol] 125 U/L High 45-117 [facility] Serum or plasma calcium antoine urement (mass/volume)Ordered By: Walter Becker on 08-04-2024 Calcium [Mass/Vol] 9.7 mg/dL 8.5-10.1 [facility] Serum or plasma creatinine m easurement (mass/volume)Ordered By: Walter Becker on 08-04-2024 Creatinine [Mass/Vol] 1.28 mg/dL 0.70-1.30 [facility] Comment on above: The validity of the calculated GFR & GFRAA in patients over 70 years has not been determined. Clinical correlation is essential. Serum or plasma urea nitroge n measurement (mass/volume)Ordered By: Walter Becker on 08-04-2024 Urea nitrogen [Mass/Vol] 27 mg/dL High 7-18 [facility] Sodium levelOrdered By: Walter Becker on 08-04-2024 Sodium [Moles/Vol] 140 mmol/L 136-145 [facility] Total proteinOrdered By: Crystal Becker on 08-04-2024 Protein [Mass/Vol] 7.0 g/dL 6.4-8.2 [facility] Urinalysis, Completeon 08-04 WBC 0-5 SEEN Normal 0-5 [facility] Comment on above: Order Comment: 215.2 Performed By: #### L 500.5181, L501.9969, L100.0500 #### [facility] [address] [place], [address] BACTERIA 0 SEEN Normal None Seen [facility] Comment on above: Order Comment: 215.2 Performed By: #### L [id number], [id number], L100.0500 #### [facility] [address] [place], [address] EPI,SQUAMOUS 0 SEEN Normal 0-5 [facility] Comment on above: Order Comment: 215.2 Performed By: #### L [id number], [id number], L100.0500 #### [facility] [address] [place], [address] Mucus Ql (Urine sed) 0 SEEN Normal [facility] Comment on above: Order Comment: 215.2 Performed By: #### L [id number], [id number], L100.0500 #### [facility] [address] [place], [address] RBC 0 SEEN Normal 0-5 [facility] Comment on above: Order Comment: 215.2 Performed By: #### L [id number], [id number], L100.0500 #### [facility] [address] [place], [address] Urine blood detectionOrdered By: Walter Becker on 08-04-2024 Urine Occult Blood Negative Negative [facility] Urine clarityOrdered By: Crystal Becker on 08-04-2024 Clarity (U) Clear Clear [facility] Urine color determinationOrd ered By: Walter Becker on 08-04-2024 Color (U) Yellow Yellow [facility] Urine cultureOrdered By: Crystal Becker on 08-04-2024 Bacteria identified Cx Nom (U) Culture exhibits no growth. [facility] Urine leukocyte esterase det ection by dipstickOrdered By: Walter Becker on 08-04-2024 Leukocyte esterase Test strip Ql (U) Negative Negative [facility] Urine pHOrdered By: Walter floyd on 08-04-2024 pH (U) 6.0 [pH] 5.0 - 8.0 [facility] Urine sediment bacteria coun t by microscopy (number/high power field)Ordered By: Walter Becker on 08-04-2024 Bacteria LM.HPF (Urine sed) [#/Area] 0 /[HPF] None Seen [facility] Urine specific gravity measu rementOrdered By: Walter Becker on 08-04-2024 Specific gravity (U) [Rel density] 1.010 1.002-1.03 0 [facility] Urobilinogen Ql (U)Ordered B y: Walter Becker on 08-04-2024 Urine Urobilinogen Normal mg/dl Normal [facility] White blood cell (WBC) count Ordered By: Walter Becker on 08-04-2024 WBC (Bld) [#/Vol] 9.3 10*3/uL 4.4-11.0 [facility] White blood cell countOrdere d By: Walter Becker on 08-04-2024 Urine WBC 0-5 SEEN /hpf 0-5 [facility] Albumin to globulin ratioOrd ered By: Walter Becker on 07-27-2024 Albumin/Globulin [Mass ratio] 1.1 {ratio} 0.9-2.4 [facility] Bilirubin, totalOrdered By: Walter Becker on 07-27-2024 Bilirubin [Mass/Vol] 0.60 mg/dL 0.20-1.00 [facility] Comment on above: For patients on eltr ombopag therapy, use of Dimension [place] TBIL is not recommended. Blood urea nitrogen (BUN)/cr eatinine ratioOrdered By: Walter Becker on 07-27-2024 Urea nitrogen/Creatinine [Mass ratio] 20.0 mg/mg 10-20 [facility] CBC-Complete Blood Cnt No Di ffon 07-27-2024 Erythrocyte distribution width (RBC) [Ratio] 13.5 % Normal 11.6-14.6 [facility] Comment on above: Order Comment: 215.2 Performed By: #### L [id number], [id number], L100.0500 #### [facility] [address] [place], [address] Hematocrit (Bld) [Volume fraction] 35.7 % Low 40-54 [facility] Comment on above: Order Comment: 215.2 Performed By: #### L 500.4050, [id number], L100.0500 #### [facility] [address] [place], [address] Hemoglobin (Bld) [Mass/Vol] 11.5 g/dL Low 13.0-16. 5 [facility] Comment on above: Order Comment: 215.2 Performed By: #### L 500.4050, [id number], L100.0500 #### [facility] [address] [place], [address] MCH (RBC) [Entitic mass] 28.2 pg Normal 27.0-32.0 [facility] Comment on above: Order Comment: 215.2 Performed By: #### L 500.4050, [id number], L100.0500 #### [facility] [address] [place], [address] MCHC (RBC) [Mass/Vol] 32.2 g/dL Normal 32-36 [facility] Comment on above: Order Comment: 215.2 Performed By: #### L 500.4050, [id number], L100.0500 #### [facility] [address] [place], [address] MCV (RBC) [Entitic vol] 87.5 fL Normal 80-94 [facility] Comment on above: Order Comment: 215.2 Performed By: #### L 500.4050, [id number], L100.0500 #### [facility] [address] [place], [address] Platelet mean volume (Bld) [Entitic vol] 9.6 fL Normal 6.2-12.0 [facility] Comment on above: Order Comment: 215.2 Performed By: #### L 500.4050, [id number], L100.0500 #### [facility] [address] [place], [address] Platelets (Bld) [#/Vol] 192 10*3/uL Normal 150-450 [facility] Comment on above: Order Comment: 215.2 Performed By: #### L 500.4050, [id number], L100.0500 #### [facility] [address] [place], [address] RBC (Bld) [#/Vol] 4.08 10*6/uL Low 4.6-6.2 [facility] Comment on above: Order Comment: 215.2 Performed By: #### L 500.4050, [id number], L100.0500 #### [facility] [address] [place], [address] RDW SD 43.1 fl Normal 35.1-43.9 [facility] Comment on above: Order Comment: 215.2 Performed By: #### L 500.4050, [id number], L100.0500 #### [facility] [address] [place], [address] WBC (Bld) [#/Vol] 7.2 10*3/uL Normal 4.4-11.0 [facility] Comment on above: Order Comment: 215.2 Performed By: #### L 500.4050, [id number], L100.0500 #### [facility] [address] [place], [address] Carbon dioxide measurementOr dered By: Walter Becker on 07-27-2024 CO2 [Moles/Vol] 29.0 mmol/L 21.0-32.0 [facility] Chloride measurementOrdered By: Walter Becker on 07-27-2024 Chloride [Moles/Vol] 105 mmol/L 98-107 [facility] Comprehensive Metabolic Prof ilon 07-27-2024 Albumin [Mass/Vol] 3.1 g/dL Low 3.2-5.0 [facility] Comment on above: Order Comment: 215.2 Performed By: #### L 500.4050, [id number], L100.0500 #### [facility] [address] [place], [address] Albumin/Globulin [Mass ratio] 1.1 {ratio} Normal 0.9-2.4 [facility] Comment on above: Order Comment: 215.2 Performed By: #### L 500.4050, [id number], L100.0500 #### [facility] [address] [place], [address] ALK P 124 U/L High 45-117 [facility] Comment on above: Order Comment: 215.2 Performed By: #### L 500.4050, [id number], L100.0500 #### [facility] [address] [place], [address] ALT [Catalytic activity/Vol] 20 U/L Normal 16-61 [facility] Comment on above: Order Comment: 215.2 Performed By: #### L 500.4050, [id number], L100.0500 #### [facility] [address] [place], [address] AST [Catalytic activity/Vol] 10 U/L Low 15-37 [facility] Comment on above: Order Comment: 215.2 Performed By: #### L 500.4050, [id number], L100.0500 #### [facility] [address] [place], [address] Bilirubin [Mass/Vol] 0.60 mg/dL Normal 0.20-1.00 [facility] Comment on above: Order Comment: 215.2 Result Comment: For patients on eltrombopag therapy, use of Dimension [place] TBIL is not recommended. Performed By: #### L 500.4050, [id number], L100.0500 #### [facility] [address] [place], [address] BUN/CRE 20.0 RATIO Normal 10-20 [facility] Comment on above: Order Comment: 215.2 Performed By: #### L 500.4050, [id number], L100.0500 #### [facility] [address] [place], [address] CA,Total 8.9 mg/dL Normal 8.5-10.1 [facility] Comment on above: Order Comment: 215.2 Performed By: #### L 500.4050, [id number], L100.0500 #### [facility] [address] [place], [address] Chloride [Moles/Vol] 105 mmol/L Normal 98-107 [facility] Comment on above: Order Comment: 215.2 Performed By: #### L 500.4050, [id number], L100.0500 #### [facility] [address] [place], [address] CO2 [Moles/Vol] 29.0 mmol/L Normal 21.0-32.0 [facility] Comment on above: Order Comment: 215.2 Performed By: #### L 500.4050, [id number], L100.0500 #### [facility] [address] [place], [address] Creatinine [Mass/Vol] 1.10 mg/dL Normal 0.70-1.30 [facility] Comment on above: Order Comment: 215.2 Result Comment: The validity of the calculated GFR GFRAA in patients over 70 years has not been determined. Clinical correlation is essential. Performed By: #### L 500.4050, [id number], L100.0500 #### [facility] [address] [place], [address] EST GFR - AA 84 mL/min Normal >60 [facility] Comment on above: Order Comment: 215.2 Result Comment: Afri can Haitian GFR Calc Performed By: #### L 500.4050, [id number], L100.0500 #### [facility] [address] [place], [address] GAP 4 Low 5-15 [facility] Comment on above: Order Comment: 215.2 Performed By: #### L 500.4050, [id number], L100.0500 #### [facility] [address] [place], [address] GFR/1.73 sq M.predicted among non-blacks MDRD (S/P/Bld) [Vol rate/Area] 69 mL/min/{1.73_m2} Normal >60 [facility] Comment on above: Order Comment: 215.2 Result Comment: Non- GFR Calc Performed By: #### L 500.4050, [id number], L100.0500 #### [facility] [address] [place], [address] Globulin (S) [Mass/Vol] 2.9 g/dL Normal 2.2-4.2 [facility] Comment on above: Order Comment: 215.2 Performed By: #### L 500.4050, [id number], L100.0500 #### [facility] [address] [place], [address] Glucose [Mass/Vol] 127 mg/dL High 74-106 [facility] Comment on above: Order Comment: 215.2 Result Comment: Fast ing Glucose result greater than or equal to 126 mg/dL suggests DIABETES MELLITUS per A.D.A. criteria. Performed By: #### L 500.4050, [id number], L100.0500 #### [facility] [address] [place], [address] Potassium [Moles/Vol] 4.1 mmol/L Normal 3.5-5.1 [facility] Comment on above: Order Comment: 215.2 Performed By: #### L 500.4050, [id number], L100.0500 #### [facility] [address] [place], [address] Sodium [Moles/Vol] 137 mmol/L Normal 136-145 [facility] Comment on above: Order Comment: 215.2 Performed By: #### L 500.4050, [id number], L100.0500 #### [facility] [address] [place], [address] T PROT 6.0 g/dL Low 6.4-8.2 [facility] Comment on above: Order Comment: 215.2 Performed By: #### L 500.4050, [id number], L100.0500 #### [facility] [address] [place], [address] Urea nitrogen [Mass/Vol] 22 mg/dL High 7-18 [facility] Comment on above: Order Comment: 215.2 Performed By: #### L 500.4050, [id number], L100.0500 #### [facility] [address] [place], [address] Erythrocyte distribution wid th (RBC) [Ratio]Ordered By: Walter Becker on 07-27-2024 Erythrocyte distribution width (RBC) [Entitic vol] 43.1 fL 35.1-43.9 [facility] Erythrocyte distribution wid th ratioOrdered By: Walter Becker on 07-27-2024 Erythrocyte distribution width (RBC) [Ratio] 13.5 % 11.6-14.6 [facility] Estimated glomerular filtrat ion rate (GFR) AmericanOrdered By: Walter Becker on 07-27-2024 Estimated GFR (MDRD) Amer 84 mL/min >60 [facility] Comment on above: GFR Calc Glomerular filtration rate ( GFR) estimationOrdered By: Walter Becker on 07-27-2024 Estimated GFR (MDRD) Non-Af Amer 69 mL/min >60 [facility] Comment on above: Non- GFR Calc Glucose measurementOrdered B y: Walter Becker on 07-27-2024 Glucose [Mass/Vol] 127 mg/dL High 74-106 [facility] Comment on above: Fasting Glucose resu lt greater than or equal to 126 mg/dL suggests DIABETES MELLITUS per A.D.A. criteria. Hematocrit Auto (Bld) [Volum e fraction]Ordered By: Walter Becker on 07-27-2024 Hematocrit (Bld) [Volume fraction] 35.7 % Low 40-54 [facility] Hemoglobin measurementOrdere d By: Walter Becker on 07-27-2024 Hemoglobin (Bld) [Mass/Vol] 11.5 g/dL Low 13.0-16. 5 [facility] - Chemistry and C hemistry - challengeOrdered By: Walter Becker on 07-27-2024 AST [Catalytic activity/Vol] 10 U/L Low 15-37 [facility] MCV (mean corpuscular volume ) determinationOrdered By: Walter Becker on 07-27-2024 MCV (RBC) [Entitic vol] 87.5 fL 80-94 [facility] Mean corpuscular hemoglobin (MCH) determinationOrdered By: Walter Becker on 07-27-2024 MCH (RBC) [Entitic mass] 28.2 pg 27.0-32.0 [facility] Mean corpuscular hemoglobin concentration (MCHC) determinationOrdered By: Walter Becker on 07-27-2024 MCHC (RBC) [Mass/Vol] 32.2 g/dL 32-36 [facility] Mean platelet volume determi nationOrdered By: Walter Becker on 07-27-2024 Platelet mean volume (Bld) [Entitic vol] 9.6 fL 6.2-12.0 [facility] Platelet countOrdered By: Horner on 07-27-2024 Platelets (Bld) [#/Vol] 192 10*3/uL 150-450 [facility] Potassium measurementOrdered By: Walter Becker on 07-27-2024 Potassium [Moles/Vol] 4.1 mmol/L 3.5-5.1 [facility] RBC Auto (Bld) [#/Vol]Ordere d By: Walter Becker on 07-27-2024 RBC (Bld) [#/Vol] 4.08 10*6/uL Low 4.6-6.2 [facility] Serum anion gap measurementO rdered By: Walter Becker on 07-27-2024 Anion gap [Moles/Vol] 4 mmol/L Low 5-15 [facility] Serum globulin measurementOr dered By: Walter Becker on 07-27-2024 Globulin (S) [Mass/Vol] 2.9 g/dL 2.2-4.2 [facility] Serum or plasma alanine davis otransferase (ALT) measurementOrdered By: Walter Becker on 07-27-2024 ALT [Catalytic activity/Vol] 20 U/L 16-61 [facility] Serum or plasma albumin antoine urement (mass/volume)Ordered By: Walter Becker on 07-27-2024 Albumin [Mass/Vol] 3.1 g/dL Low 3.2-5.0 [facility] Serum or plasma alkaline marilin sphatase measurementOrdered By: Walter Becker on 07-27-2024 ALP [Catalytic activity/Vol] 124 U/L High 45-117 [facility] Serum or plasma calcium antoine urement (mass/volume)Ordered By: Walter Becker on 07-27-2024 Calcium [Mass/Vol] 8.9 mg/dL 8.5-10.1 [facility] Serum or plasma creatinine m easurement (mass/volume)Ordered By: Walter Becker on 07-27-2024 Creatinine [Mass/Vol] 1.10 mg/dL 0.70-1.30 [facility] Comment on above: The validity of the calculated GFR & GFRAA in patients over 70 years has not been determined. Clinical correlation is essential. Serum or plasma urea nitroge n measurement (mass/volume)Ordered By: Walter Becker on 07-27-2024 Urea nitrogen [Mass/Vol] 22 mg/dL High 01-29 [facility] Sodium levelOrdered By: Walter Becker on 07-27-2024 Sodium [Moles/Vol] 137 mmol/L 136-145 [facility] Total proteinOrdered By: Crystal Becker on 07-27-2024 Protein [Mass/Vol] 6.0 g/dL Low 6.4-8.2 [facility] White blood cell (WBC) count Ordered By: Walter Becker on 07-27-2024 WBC (Bld) [#/Vol] 7.2 10*3/uL 4.4-11.0 [facility] Albumin to globulin ratioOrd ered By: Walter Becker on 07-07-2024 Albumin/Globulin [Mass ratio] 1.0 {ratio} 0.9-2.4 [facility] Bilirubin, totalOrdered By: Walter Becker on 07-07-2024 Bilirubin [Mass/Vol] 0.40 mg/dL 0.20-1.00 [facility] Comment on above: For patients on eltr ombopag therapy, use of Dimension [place] TBIL is not recommended. Blood urea nitrogen (BUN)/cr eatinine ratioOrdered By: Walter Becker on 07-07-2024 Urea nitrogen/Creatinine [Mass ratio] 23.6 mg/mg High 05-03 [facility] CBC-Complete Blood Cnt No Di ffon 07-07-2024 Erythrocyte distribution width (RBC) [Ratio] 13.3 % Normal 11.6-14.6 [facility] Comment on above: Order Comment: 215.2 Performed By: #### L 500.4050, L501.9985, L100.0500 #### [facility] [address] [place], [address] Hematocrit (Bld) [Volume fraction] 38.1 % Low 40-54 [facility] Comment on above: Order Comment: 215.2 Performed By: #### L 500.4050, L501.9985, L100.0500 #### [facility] [address] [place], [address] Hemoglobin (Bld) [Mass/Vol] 12.3 g/dL Low 13.0-16. 5 [facility] Comment on above: Order Comment: 215.2 Performed By: #### L 500.4050, L501.9985, L100.0500 #### [facility] [address] [place], [address] MCH (RBC) [Entitic mass] 28.3 pg Normal 27.0-32.0 [facility] Comment on above: Order Comment: 215.2 Performed By: #### L 500.4050, L501.9985, L100.0500 #### [facility] [address] [place], [address] MCHC (RBC) [Mass/Vol] 32.3 g/dL Normal 32-36 [facility] Comment on above: Order Comment: 215.2 Performed By: #### L 500.4050, L501.9985, L100.0500 #### [facility] [address] [place], [address] MCV (RBC) [Entitic vol] 87.6 fL Normal 80-94 [facility] Comment on above: Order Comment: 215.2 Performed By: #### L 500.4050, L501.9985, L100.0500 #### [facility] [address] [place], [address] Platelet mean volume (Bld) [Entitic vol] 9.1 fL Normal 6.2-12.0 [facility] Comment on above: Order Comment: 215.2 Performed By: #### L 500.4050, L501.9985, L100.0500 #### [facility] [address] [place], [address] Platelets (Bld) [#/Vol] 211 10*3/uL Normal 150-450 [facility] Comment on above: Order Comment: 215.2 Performed By: #### L 500.4050, L501.9985, L100.0500 #### [facility] [address] [place], [address] RBC (Bld) [#/Vol] 4.35 10*6/uL Low 4.6-6.2 [facility] Comment on above: Order Comment: 215.2 Performed By: #### L 500.4050, L501.9985, L100.0500 #### [facility] [address] [place], [address] RDW SD 42.5 fl Normal 35.1-43.9 [facility] Comment on above: Order Comment: 215.2 Performed By: #### L 500.4050, L501.9985, L100.0500 #### [facility] [address] [place], [address] WBC (Bld) [#/Vol] 7.6 10*3/uL Normal 4.4-11.0 [facility] Comment on above: Order Comment: 215.2 Performed By: #### L 500.4050, L501.9985, L100.0500 #### [facility] [address] [place], [address] Carbon dioxide measurementOr dered By: Walter Becker on 07-07-2024 CO2 [Moles/Vol] 32.0 mmol/L 21.0-32.0 [facility] Chloride measurementOrdered By: Walter Becker on 07-07-2024 Chloride [Moles/Vol] 107 mmol/L 98-107 [facility] Comprehensive Metabolic Prof ilon 07-07-2024 Albumin [Mass/Vol] 2.9 g/dL Low 3.2-5.0 [facility] Comment on above: Order Comment: 215.2 Performed By: #### L 500.4050, L501.9985, L100.0500 #### [facility] [address] [place], [address] Albumin/Globulin [Mass ratio] 1.0 {ratio} Normal 0.9-2.4 [facility] Comment on above: Order Comment: 215.2 Performed By: #### L 500.4050, L501.9985, L100.0500 #### [facility] [address] [place], [address] ALK P 121 U/L High 45-117 [facility] Comment on above: Order Comment: 215.2 Performed By: #### L 500.4050, L501.9985, L100.0500 #### [facility] [address] [place], [address] ALT [Catalytic activity/Vol] 20 U/L Normal 16-61 [facility] Comment on above: Order Comment: 215.2 Performed By: #### L 500.4050, L501.9985, L100.0500 #### [facility] [address] [place], [address] AST [Catalytic activity/Vol] 10 U/L Low 15-37 [facility] Comment on above: Order Comment: 215.2 Performed By: #### L 500.4050, L501.9985, L100.0500 #### [facility] [address] [place], [address] Bilirubin [Mass/Vol] 0.40 mg/dL Normal 0.20-1.00 [facility] Comment on above: Order Comment: 215.2 Result Comment: For patients on eltrombopag therapy, use of Dimension [place] TBIL is not recommended. Performed By: #### L 500.4050, L501.9985, L100.0500 #### [facility] [address] [place], [address] BUN/CRE 23.6 RATIO High 10-20 [facility] Comment on above: Order Comment: 215.2 Performed By: #### L 500.4050, L501.9985, L100.0500 #### [facility] [address] [place], [address] CA,Total 9.1 mg/dL Normal 8.5-10.1 [facility] Comment on above: Order Comment: 215.2 Performed By: #### L 500.4050, L501.9985, L100.0500 #### [facility] [address] [place], [address] Chloride [Moles/Vol] 107 mmol/L Normal 98-107 [facility] Comment on above: Order Comment: 215.2 Performed By: #### L 500.4050, L501.9985, L100.0500 #### [facility] [address] [place], [address] CO2 [Moles/Vol] 32.0 mmol/L Normal 21.0-32.0 [facility] Comment on above: Order Comment: 215.2 Performed By: #### L 500.4050, L501.9985, L100.0500 #### [facility] [address] [place], [address] Creatinine [Mass/Vol] 1.06 mg/dL Normal 0.70-1.30 [facility] Comment on above: Order Comment: 215.2 Result Comment: The validity of the calculated GFR GFRAA in patients over 70 years has not been determined. Clinical correlation is essential. Performed By: #### L 500.4050, L501.9985, L100.0500 #### [facility] [address] [place], [address] EST GFR - AA 87 mL/min Normal >60 [facility] Comment on above: Order Comment: 215.2 Result Comment: Afri can Haitian GFR Calc Performed By: #### L 500.4050, L501.9985, L100.0500 #### [facility] [address] [place], [address] GAP 3 Low 5-15 [facility] Comment on above: Order Comment: 215.2 Performed By: #### L 500.4050, L501.9985, L100.0500 #### [facility] [address] [place], [address] GFR/1.73 sq M.predicted among non-blacks MDRD (S/P/Bld) [Vol rate/Area] 72 mL/min/{1.73_m2} Normal >60 [facility] Comment on above: Order Comment: 215.2 Result Comment: Non- GFR Calc Performed By: #### L 500.4050, L501.9985, L100.0500 #### [facility] [address] [place], [address] Globulin (S) [Mass/Vol] 3.0 g/dL Normal 2.2-4.2 [facility] Comment on above: Order Comment: 215.2 Performed By: #### L 500.4050, L501.9985, L100.0500 #### [facility] [address] [place], [address] Glucose [Mass/Vol] 130 mg/dL High 74-106 [facility] Comment on above: Order Comment: 215.2 Result Comment: Fast ing Glucose result greater than or equal to 126 mg/dL suggests DIABETES MELLITUS per A.D.A. criteria. Performed By: #### L 500.4050, L501.9985, L100.0500 #### [facility] [address] [place], [address] Potassium [Moles/Vol] 3.9 mmol/L Normal 3.5-5.1 [facility] Comment on above: Order Comment: 215.2 Performed By: #### L 500.4050, L501.9985, L100.0500 #### [facility] [address] [place], [address] Sodium [Moles/Vol] 141 mmol/L Normal 136-145 [facility] Comment on above: Order Comment: 215.2 Performed By: #### L 500.4050, L501.9985, L100.0500 #### [facility] [address] [place], [address] T PROT 5.9 g/dL Low 6.4-8.2 [facility] Comment on above: Order Comment: 215.2 Performed By: #### L 500.4050, L501.9985, L100.0500 #### [facility] [address] [place], [address] Urea nitrogen [Mass/Vol] 25 mg/dL High 7-18 [facility] Comment on above: Order Comment: 215.2 Performed By: #### L 500.4050, L501.9985, L100.0500 #### [facility] [address] [place], [address] Erythrocyte distribution wid th (RBC) [Ratio]Ordered By: Walter Becker on 07-07-2024 Erythrocyte distribution width (RBC) [Entitic vol] 42.5 fL 35.1-43.9 [facility] Erythrocyte distribution wid th ratioOrdered By: Walter Becker on 07-07-2024 Erythrocyte distribution width (RBC) [Ratio] 13.3 % 11.6-14.6 [facility] Estimated glomerular filtrat ion rate (GFR) AmericanOrdered By: Walter Becker on 07-07-2024 Estimated GFR (MDRD) Amer 87 mL/min >60 [facility] Comment on above: GFR Calc Glomerular filtration rate ( GFR) estimationOrdered By: Walter Becker on 07-07-2024 Estimated GFR (MDRD) Non-Af Amer 72 mL/min >60 [facility] Comment on above: Non- GFR Calc Glucose measurementOrdered B y: Walter Becker on 07-07-2024 Glucose [Mass/Vol] 130 mg/dL High 74-106 [facility] Comment on above: Fasting Glucose resu lt greater than or equal to 126 mg/dL suggests DIABETES MELLITUS per A.D.A. criteria. Hematocrit Auto (Bld) [Volum e fraction]Ordered By: Walter Becker on 07-07-2024 Hematocrit (Bld) [Volume fraction] 38.1 % Low 40-54 [facility] Hemoglobin A1con 07-07-2024 HbA1c (Bld) [Mass fraction] 6.4 % High 3.8-5.6 [facility] Comment on above: Order Comment: 215.2 Result Comment: Norm al < 5.7 % Prediabetic 5.7 - 6.4 % Diabetic >or= 6.5 % Please note range changes. Performed By: #### L 500.4050, L501.9985, L100.0500 #### [facility] [address] [place], [address] Hemoglobin A1c percentageOrd ered By: Walter Becker on 07-07-2024 HbA1c (Bld) [Mass fraction] 6.4 % High 3.8-5.6 [facility] Comment on above: Normal < 5.7 % Predi abetic 5.7 - 6.4 % Diabetic >or= 6.5 % Please note range changes. Hemoglobin measurementOrdere d By: Walter Becker on 07-07-2024 Hemoglobin (Bld) [Mass/Vol] 12.3 g/dL Low 13.0-16. 5 [facility] - Chemistry and C hemistry - challengeOrdered By: Walter Becker on 07-07-2024 AST [Catalytic activity/Vol] 10 U/L Low 15-37 [facility] MCV (mean corpuscular volume ) determinationOrdered By: Walter Becker on 07-07-2024 MCV (RBC) [Entitic vol] 87.6 fL 80-94 [facility] Mean corpuscular hemoglobin (MCH) determinationOrdered By: Walter Becker on 07-07-2024 MCH (RBC) [Entitic mass] 28.3 pg 27.0-32.0 [facility] Mean corpuscular hemoglobin concentration (MCHC) determinationOrdered By: Walter Becker on 07-07-2024 MCHC (RBC) [Mass/Vol] 32.3 g/dL 32-36 [facility] Mean platelet volume determi nationOrdered By: Walter Becker on 07-07-2024 Platelet mean volume (Bld) [Entitic vol] 9.1 fL 6.2-12.0 [facility] Platelet countOrdered By: Horner on 07-07-2024 Platelets (Bld) [#/Vol] 211 10*3/uL 150-450 [facility] Potassium measurementOrdered By: Walter Becker on 07-07-2024 Potassium [Moles/Vol] 3.9 mmol/L 3.5-5.1 [facility] RBC Auto (Bld) [#/Vol]Ordere d By: Walter Becker on 07-07-2024 RBC (Bld) [#/Vol] 4.35 10*6/uL Low 4.6-6.2 [facility] Serum anion gap measurementO rdered By: Walter Becker on 07-07-2024 Anion gap [Moles/Vol] 3 mmol/L Low 5-15 [facility] Serum globulin measurementOr dered By: Walter Becker on 07-07-2024 Globulin (S) [Mass/Vol] 3.0 g/dL 2.2-4.2 [facility] Serum or plasma alanine davis otransferase (ALT) measurementOrdered By: Walter Becker on 07-07-2024 ALT [Catalytic activity/Vol] 20 U/L 16-61 [facility] Serum or plasma albumin antoine urement (mass/volume)Ordered By: Walter Becker on 07-07-2024 Albumin [Mass/Vol] 2.9 g/dL Low 3.2-5.0 [facility] Serum or plasma alkaline marilin sphatase measurementOrdered By: Walter Becker on 07-07-2024 ALP [Catalytic activity/Vol] 121 U/L High 45-117 [facility] Serum or plasma calcium antoine urement (mass/volume)Ordered By: Walter Becker on 07-07-2024 Calcium [Mass/Vol] 9.1 mg/dL 8.5-10.1 [facility] Serum or plasma creatinine m easurement (mass/volume)Ordered By: Walter Becker on 07-07-2024 Creatinine [Mass/Vol] 1.06 mg/dL 0.70-1.30 [facility] Comment on above: The validity of the calculated GFR & GFRAA in patients over 70 years has not been determined. Clinical correlation is essential. Serum or plasma urea nitroge n measurement (mass/volume)Ordered By: Walter Becker on 07-07-2024 Urea nitrogen [Mass/Vol] 25 mg/dL High - [facility] Sodium levelOrdered By: Walter Becker on 07-07-2024 Sodium [Moles/Vol] 141 mmol/L 136-145 [facility] Total proteinOrdered By: Crystal Becker on 07-07-2024 Protein [Mass/Vol] 5.9 g/dL Low 6.4-8.2 [facility] White blood cell (WBC) count Ordered By: Walter Becker on 07-07-2024 WBC (Bld) [#/Vol] 7.6 10*3/uL 4.4-11.0 [facility] Vitamin D,25 Hydroxyon 07-02 Vitamin D 25-OH 58.5 ng/mL Normal [facility] Comment on above: Order Comment: 215.2 Result Comment: Laure min D 25(OH) Status Range Deficiency <20 ng/mL (50nmol/L) Insufficiency 20 - 30 ng/mL (50 - 75 nmol/L) Sufficiency 30 - 100 ng/mL (75 - 250 nmol/L) Toxicity >100 ng/mL (>250 nmol/L) Performed By: #### L 506.1000 #### [facility] [address] [place], [address] 81-SH-Miglcie DOrdered By: Danny Becker on 07-01-2024 Vitamin D 25-Hydroxy 58.5 ng/mL [facility] Comment on above: Vitamin D 25(OH) Sta tus Range Deficiency <20 ng/mL (50nmol/L) Insufficiency 20 - 30 ng/mL (50 - 75 nmol/L) Sufficiency 30 - 100 ng/mL (75 - 250 nmol/L) Toxicity >100 ng/mL (>250 nmol/L) Bedside Glucoseon 06-01-2024 FINGERSTICK GLU 183 mg/dL High 74-106 [facility] Comment on above: Result Comment: JAZ WOODKACIE OF PATIENT CARE PER NURSING PROTOCOL Performed By: #### L 500.4050, L501.9985, L100.0500 #### [facility] [address] [place], [place], [address] Fluor Guidance for Spine Inj on 06-01-2024 Fluor Guidance for Spine Inj [facility] Imaging Services [address] [place] [address] Fluor Guidance for Spine Inj MR#: [id number] Acct: [id number] Name: RICHARD ROY Rep #: [id number] : 1945 M 78 From: Ravindra hogue MD PCP: Dr. Luis Caldera MD Status: [facility] Study: Fluor Guidance for Spine Inj Date of Exam: Exam# [id number] Ordering Dr: Kee Merritt MD [id number] PROCEDURE: Caudal block. DATE OF EXAMINATION: June 01, 2024. INDICATION: Male, 78 years old. Chronic low back pain. FLUOROSCOPY TIME (if supplied): (2.6 seconds) minutes/seconds. 0.72 mGy. One image was submitted. RAD/Fluor Guidance for Spine Inj IMPRESSION: Intraoperative imaging provided for caudal block. Electronically Signed: Ravindra Sierra MD at 12:53 EST , CC: Dr. Luis Caldera MD; Dr. Kee Merritt MD [employer] Technical: Signed Normal [facility] Operative Reporton Operative Report [facility] Medical Records Department [address] [place] [address] Operative Report 06/01/24 1141 MR#: [id number] Acct: [id number] Name: RICHARD ROY Rep #: [id number] : 1945 78 From: Kee Merritt MD PCP: Dr. Luis Caldera MD Status:[facility] Location: [facility] Operative Report (Standard) Operative Information Surgery/Procedure Performed: Diagnostic/therapeuti c caudal epidural steroid injection Surgeon: Kee Merritt Date of Procedure: 06/01/24 Procedure Start Time: :42 Procedure Stop Time: :42 Pre-Operative Diagnosis: Lumbosacral radiculopathy, lumbosacral degenerative disc [...] 2 weeks for reevaluation. 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 Luis Caldera MD; Dr. Kee Merritt MD Signed Normal [facility] CBC-Complete Blood Cnt No Di ffon 04-14-2024 Erythrocyte distribution width (RBC) [Ratio] 14.6 % Normal 11.6-14.6 [facility] Comment on above: Order Comment: 215.2 Performed By: #### L 501.9985, L500.4050, L100.0500 #### [facility] [address] [place], [address] Hematocrit (Bld) [Volume fraction] 39.3 % Low 40-54 [facility] Comment on above: Order Comment: 215.2 Performed By: #### L 501.9985, L500.4050, L100.0500 #### [facility] [address] [place], [address] Hemoglobin (Bld) [Mass/Vol] 12.3 g/dL Low 13.0-16. 5 [facility] Comment on above: Order Comment: 215.2 Performed By: #### L 501.9985, L500.4050, L100.0500 #### [facility] [address] [place], [address] MCH (RBC) [Entitic mass] 27.3 pg Normal 27.0-32.0 [facility] Comment on above: Order Comment: 215.2 Performed By: #### L 501.9985, L500.4050, L100.0500 #### [facility] [address] [place], [address] MCHC (RBC) [Mass/Vol] 31.3 g/dL Low 32-36 [facility] Comment on above: Order Comment: 215.2 Performed By: #### L 501.9985, L500.4050, L100.0500 #### [facility] [address] [place], [address] MCV (RBC) [Entitic vol] 87.3 fL Normal 80-94 [facility] Comment on above: Order Comment: 215.2 Performed By: #### L 501.9985, L500.4050, L100.0500 #### [facility] [address] [place], [address] Platelet mean volume (Bld) [Entitic vol] 9.6 fL Normal 6.2-12.0 [facility] Comment on above: Order Comment: 215.2 Performed By: #### L 501.9985, L500.4050, L100.0500 #### [facility] [address] [place], [address] Platelets (Bld) [#/Vol] 224 10*3/uL Normal 150-450 [facility] Comment on above: Order Comment: 215.2 Performed By: #### L 501.9985, L500.4050, L100.0500 #### [facility] [address] [place], [address] RBC (Bld) [#/Vol] 4.50 10*6/uL Low 4.6-6.2 [facility] Comment on above: Order Comment: 215.2 Performed By: #### L 501.9985, L500.4050, L100.0500 #### [facility] [address] [place], [address] RDW SD 46.6 fl High 35.1-43.9 [facility] Comment on above: Order Comment: 215.2 Performed By: #### L 501.9985, L500.4050, L100.0500 #### [facility] [address] [place], [address] WBC (Bld) [#/Vol] 8.5 10*3/uL Normal 4.4-11.0 [facility] Comment on above: Order Comment: 215.2 Performed By: #### L 501.9985, L500.4050, L100.0500 #### [facility] [address] [place], [address] Comprehensive Metabolic Prof ilon 04-14-2024 Albumin [Mass/Vol] 3.1 g/dL Low 3.2-5.0 [facility] Comment on above: Order Comment: 215.2 Performed By: #### L 501.9985, L500.4050, L100.0500 #### [facility] [address] [place], [address] Albumin/Globulin [Mass ratio] 1.0 {ratio} Normal 0.9-2.4 [facility] Comment on above: Order Comment: 215.2 Performed By: #### L 501.9985, L500.4050, L100.0500 #### [facility] [address] [place], [address] ALK P 115 U/L Normal 45-117 [facility] Comment on above: Order Comment: 215.2 Performed By: #### L 501.9985, L500.4050, L100.0500 #### [facility] [address] [place], [address] ALT [Catalytic activity/Vol] 17 U/L Normal 16-61 [facility] Comment on above: Order Comment: 215.2 Performed By: #### L 501.9985, L500.4050, L100.0500 #### [facility] [address] [place], [address] AST [Catalytic activity/Vol] 5 U/L Low 15-37 [facility] Comment on above: Order Comment: 215.2 Performed By: #### L 501.9985, L500.4050, L100.0500 #### [facility] [address] [place], [address] Bilirubin [Mass/Vol] 0.60 mg/dL Normal 0.20-1.00 [facility] Comment on above: Order Comment: 215.2 Result Comment: For patients on eltrombopag therapy, use of Dimension [place] TBIL is not recommended. Performed By: #### L 501.9985, L500.4050, L100.0500 #### [facility] [address] [place], [address] BUN/CRE 21.2 RATIO High 10-20 [facility] Comment on above: Order Comment: 215.2 Performed By: #### L 501.9985, L500.4050, L100.0500 #### [facility] [address] [place], [address] CA,Total 9.6 mg/dL Normal 8.5-10.1 [facility] Comment on above: Order Comment: 215.2 Performed By: #### L 501.9985, L500.4050, L100.0500 #### [facility] [address] [place], [address] Chloride [Moles/Vol] 108 mmol/L High 98-107 [facility] Comment on above: Order Comment: 215.2 Performed By: #### L 501.9985, L500.4050, L100.0500 #### [facility] [address] [place], [address] CO2 [Moles/Vol] 29.0 mmol/L Normal 21.0-32.0 [facility] Comment on above: Order Comment: 215.2 Performed By: #### L 501.9985, L500.4050, L100.0500 #### [facility] [address] [place], [address] Creatinine [Mass/Vol] 1.13 mg/dL Normal 0.70-1.30 [facility] Comment on above: Order Comment: 215.2 Result Comment: The validity of the calculated GFR GFRAA in patients over 70 years has not been determined. Clinical correlation is essential. Performed By: #### L 501.9985, L500.4050, L100.0500 #### [facility] [address] [place], [address] EST GFR - AA 81 mL/min Normal >60 [facility] Comment on above: Order Comment: 215.2 Result Comment: Afri can Haitian GFR Calc Performed By: #### L 501.9985, L500.4050, L100.0500 #### [facility] [address] [place], [address] GAP 4 Low 5-15 [facility] Comment on above: Order Comment: 215.2 Performed By: #### L 501.9985, L500.4050, L100.0500 #### [facility] [address] [place], [address] GFR/1.73 sq M.predicted among non-blacks MDRD (S/P/Bld) [Vol rate/Area] 67 mL/min/{1.73_m2} Normal >60 [facility] Comment on above: Order Comment: 215.2 Result Comment: Non- GFR Calc Performed By: #### L 501.9985, L500.4050, L100.0500 #### [facility] [address] [place], [address] Globulin (S) [Mass/Vol] 3.0 g/dL Normal 2.2-4.2 [facility] Comment on above: Order Comment: 215.2 Performed By: #### L 501.9985, L500.4050, L100.0500 #### [facility] [address] [place], [address] Glucose [Mass/Vol] 128 mg/dL High 74-106 [facility] Comment on above: Order Comment: 215.2 Result Comment: Fast ing Glucose result greater than or equal to 126 mg/dL suggests DIABETES MELLITUS per A.D.A. criteria. Performed By: #### L 501.9985, L500.4050, L100.0500 #### [facility] [address] [place], [address] Potassium [Moles/Vol] 4.2 mmol/L Normal 3.5-5.1 [facility] Comment on above: Order Comment: 215.2 Performed By: #### L 501.9985, L500.4050, L100.0500 #### [facility] [address] [place], [address] Sodium [Moles/Vol] 141 mmol/L Normal 136-145 [facility] Comment on above: Order Comment: 215.2 Performed By: #### L 501.9985, L500.4050, L100.0500 #### [facility] [address] [place], [address] T PROT 6.1 g/dL Low 6.4-8.2 [facility] Comment on above: Order Comment: 215.2 Performed By: #### L 501.9985, L500.4050, L100.0500 #### [facility] [address] [place], [address] Urea nitrogen [Mass/Vol] 24 mg/dL High 7-18 [facility] Comment on above: Order Comment: 215.2 Performed By: #### L 501.9985, L500.4050, L100.0500 #### [facility] [address] [place], [address] Hemoglobin A1con 04-14-2024 HbA1c (Bld) [Mass fraction] 6.5 % High 3.8-5.6 [facility] Comment on above: Order Comment: 215.2 Result Comment: Norm al < 5.7 % Prediabetic 5.7 - 6.4 % Diabetic >or= 6.5 % Please note range changes. Performed By: #### L 501.9985, L500.4050, L100.0500 #### [facility] [address] [place], [address] Urine Cultureon 04-11-2024 URC Culture exhibits no growth. Normal [facility] Comment on above: Performed By: #### L 500.4050, L501.9985, L100.0500 #### [facility] [address] [place], [address] CBC-Complete Blood Cnt No Di ffon 04-10-2024 Erythrocyte distribution width (RBC) [Ratio] 14.5 % Normal 11.6-14.6 [facility] Comment on above: Order Comment: 215.2 Performed By: #### L 500.4050, L501.9985, L100.0500 #### [facility] [address] [place], [address] Hematocrit (Bld) [Volume fraction] 41.3 % Normal 40-54 [facility] Comment on above: Order Comment: 215.2 Performed By: #### L 500.4050, L501.9985, L100.0500 #### [facility] [address] [place], [address] Hemoglobin (Bld) [Mass/Vol] 13.1 g/dL Normal 13.0-16. 5 [facility] Comment on above: Order Comment: 215.2 Performed By: #### L 500.4050, L501.9985, L100.0500 #### [facility] [address] [place], [address] MCH (RBC) [Entitic mass] 27.3 pg Normal 27.0-32.0 [facility] Comment on above: Order Comment: 215.2 Performed By: #### L 500.4050, L501.9985, L100.0500 #### [facility] [address] [place], [address] MCHC (RBC) [Mass/Vol] 31.7 g/dL Low 32-36 [facility] Comment on above: Order Comment: 215.2 Performed By: #### L 500.4050, L501.9985, L100.0500 #### [facility] [address] [place], [address] MCV (RBC) [Entitic vol] 86.0 fL Normal 80-94 [facility] Comment on above: Order Comment: 215.2 Performed By: #### L 500.4050, L501.9985, L100.0500 #### [facility] [address] [place], [address] Platelet mean volume (Bld) [Entitic vol] 9.4 fL Normal 6.2-12.0 [facility] Comment on above: Order Comment: 215.2 Performed By: #### L 500.4050, L501.9985, L100.0500 #### [facility] [address] [place], [address] Platelets (Bld) [#/Vol] 256 10*3/uL Normal 150-450 [facility] Comment on above: Order Comment: 215.2 Performed By: #### L 500.4050, L501.9985, L100.0500 #### [facility] [address] [place], [address] RBC (Bld) [#/Vol] 4.80 10*6/uL Normal 4.6-6.2 [facility] Comment on above: Order Comment: 215.2 Performed By: #### L 500.4050, L501.9985, L100.0500 #### [facility] [address] [place], [address] RDW SD 45.0 fl High 35.1-43.9 [facility] Comment on above: Order Comment: 215.2 Performed By: #### L 500.4050, L501.9985, L100.0500 #### [facility] [address] [place], [address] WBC (Bld) [#/Vol] 10.8 10*3/uL Normal 4.4-11.0 [facility] Comment on above: Order Comment: 215.2 Performed By: #### L 500.4050, L501.9985, L100.0500 #### [facility] [address] [place], [address] Urinalysis, Completeon 04-10 BACTERIA 0 SEEN Normal None Seen [facility] Comment on above: Order Comment: 215.2 Performed By: #### L 500.4050, L501.9985, L100.0500 #### [facility] [address] [place], [address] EPI,SQUAMOUS 0 SEEN Normal 0-5 [facility] Comment on above: Order Comment: 215.2 Performed By: #### L 500.4050, L501.9985, L100.0500 #### [facility] [address] [place], [address] Mucus Ql (Urine sed) 0 SEEN Normal [facility] Comment on above: Order Comment: 215.2 Performed By: #### L 500.4050, L501.9985, L100.0500 #### [facility] [address] [place], [address] RBC 0 SEEN Normal 0-5 [facility] Comment on above: Order Comment: 215.2 Performed By: #### L 500.4050, L501.9985, L100.0500 #### [facility] [address] [place], [address] WBC 0 SEEN Normal 0-5 [facility] Comment on above: Order Comment: 215.2 Performed By: #### L 500.4050, L501.9985, L100.0500 #### [facility] [address] [place], [address] CBC-Complete Blood Cnt No Di ffon 04-09-2024 Erythrocyte distribution width (RBC) [Ratio] 14.6 % Normal 11.6-14.6 [facility] Comment on above: Order Comment: 215.2 Performed By: #### L 300.3900 #### [facility] [address] [place], [address] Hematocrit (Bld) [Volume fraction] 39.6 % Low 40-54 [facility] Comment on above: Order Comment: 215.2 Performed By: #### L 300.3900 #### [facility] [address] [place], [address] Hemoglobin (Bld) [Mass/Vol] 12.4 g/dL Low 13.0-16. 5 [facility] Comment on above: Order Comment: 215.2 Performed By: #### L 300.3900 #### [facility] [address] [place], [address] MCH (RBC) [Entitic mass] 27.0 pg Normal 27.0-32.0 [facility] Comment on above: Order Comment: 215.2 Performed By: #### L 300.3900 #### [facility] [address] [place], [address] MCHC (RBC) [Mass/Vol] 31.3 g/dL Low 32-36 [facility] Comment on above: Order Comment: 215.2 Performed By: #### L 300.3900 #### [facility] [address] [place], [address] MCV (RBC) [Entitic vol] 86.3 fL Normal 80-94 [facility] Comment on above: Order Comment: 215.2 Performed By: #### L 300.3900 #### [facility] [address] [place], [address] Platelet mean volume (Bld) [Entitic vol] 9.4 fL Normal 6.2-12.0 [facility] Comment on above: Order Comment: 215.2 Performed By: #### L 300.3900 #### [facility] [address] [place], [address] Platelets (Bld) [#/Vol] 223 10*3/uL Normal 150-450 [facility] Comment on above: Order Comment: 215.2 Performed By: #### L 300.3900 #### [facility] [address] [place], [address] RBC (Bld) [#/Vol] 4.59 10*6/uL Low 4.6-6.2 [facility] Comment on above: Order Comment: 215.2 Performed By: #### L 300.3900 #### [facility] [address] [place], [address] RDW SD 45.5 fl High 35.1-43.9 [facility] Comment on above: Order Comment: 215.2 Performed By: #### L 300.3900 #### [facility] [address] [place], [address] WBC (Bld) [#/Vol] 11.9 10*3/uL High 4.4-11.0 [facility] Comment on above: Order Comment: 215.2 Performed By: #### L 300.3900 #### [facility] [address] [place], [address] CBC W/Diff, Automatedon 09-2 Absolute Lymph 2.54 X10 3/uL Normal 0.83-4.51 [facility] Comment on above: Performed By: #### L 500.4050, L501.9985, L100.0500 #### [facility] [address] [place], [address] Absolute Neut 7.3 X10 3/uL Normal 2.0-7.7 [facility] Comment on above: Performed By: #### L 500.4050, L501.9985, L100.0500 #### [facility] [address] [place], [address] Basophils/100 WBC (Bld) 0.3 % Normal 0-1 [facility] Comment on above: Performed By: #### L 500.4050, L501.9985, L100.0500 #### [facility] [address] [place], [address] Eosinophils/100 WBC (Bld) 3.7 % Normal 0-5 [facility] Comment on above: Performed By: #### L 500.4050, L501.9985, L100.0500 #### [facility] [address] [place], [address] Erythrocyte distribution width (RBC) [Ratio] 14.6 % Normal 11.6-14.6 [facility] Comment on above: Performed By: #### L 500.4050, L501.9985, L100.0500 #### [facility] [address] [place], [address] Hematocrit (Bld) [Volume fraction] 40.4 % Normal 40-54 [facility] Comment on above: Performed By: #### L 500.4050, L501.9985, L100.0500 #### [facility] [address] [place], [address] Hemoglobin (Bld) [Mass/Vol] 12.7 g/dL Low 13.0-16. 5 [facility] Comment on above: Performed By: #### L 500.4050, L501.9985, L100.0500 #### [facility] [address] [place], [address] IG% 2.000 High 0.0-0.9 [facility] Comment on above: Result Comment: IG% - Immature Granulocytes (promyelocytes, myelocytes and metamyelocytes) > 1% indicates that a LEFT SHIFT is Present. Performed By: #### L 500.4050, L501.9985, L100.0500 #### [facility] [address] [place], [address] Lymphocytes/100 WBC (Bld) 22.8 % Normal 19-41 [facility] Comment on above: Performed By: #### L 500.4050, L501.9985, L100.0500 #### [facility] [address] [place], [address] MCH (RBC) [Entitic mass] 27.3 pg Normal 27.0-32.0 [facility] Comment on above: Performed By: #### L 500.4050, L501.9985, L100.0500 #### [facility] [address] [place], [address] MCHC (RBC) [Mass/Vol] 31.4 g/dL Low 32-36 [facility] Comment on above: Performed By: #### L 500.4050, L501.9985, L100.0500 #### [facility] [address] [place], [address] MCV (RBC) [Entitic vol] 86.7 fL Normal 80-94 [facility] Comment on above: Performed By: #### L 500.4050, L501.9985, L100.0500 #### [facility] [address] [place], [address] Monocytes/100 WBC (Bld) 6.3 % Normal 0-10 [facility] Comment on above: Performed By: #### L 500.4050, L501.9985, L100.0500 #### [facility] [address] [place], [address] Neutrophils/100 WBC (Bld) 64.9 % Normal 47-70 [facility] Comment on above: Performed By: #### L 500.4050, L501.9985, L100.0500 #### [facility] [address] [place], [address] Nucleated RBC (Bld) [#/Vol] 0 10*3/uL Normal 0-5 [facility] Comment on above: Performed By: #### L 500.4050, L501.9985, L100.0500 #### [facility] [address] [place], [address] Platelet mean volume (Bld) [Entitic vol] 9.3 fL Normal 6.2-12.0 [facility] Comment on above: Performed By: #### L 500.4050, L501.9985, L100.0500 #### [facility] [address] [place], [address] Platelets (Bld) [#/Vol] 243 10*3/uL Normal 150-450 [facility] Comment on above: Performed By: #### L 500.4050, L501.9985, L100.0500 #### [facility] [address] [place], [address] RBC (Bld) [#/Vol] 4.66 10*6/uL Normal 4.6-6.2 [facility] Comment on above: Performed By: #### L 500.4050, L501.9985, L100.0500 #### [facility] [address] [place], [address] RDW SD 45.9 fl High 35.1-43.9 [facility] Comment on above: Performed By: #### L 500.4050, L501.9985, L100.0500 #### [facility] [address] [place], [address] WBC (Bld) [#/Vol] 11.2 10*3/uL High 4.4-11.0 [facility] Comment on above: Performed By: #### L 500.4050, L501.9985, L100.0500 #### [facility] [address] [place], [address] Comprehensive Metabolic Prof [facility] 04-08-2024 Albumin [Mass/Vol] 3.1 g/dL Low 3.2-5.0 [facility] Comment on above: Performed By: #### L 500.4050, L501.9985, L100.0500 #### [facility] [address] [place], [address] Albumin/Globulin [Mass ratio] 1.1 {ratio} Normal 0.9-2.4 [facility] Comment on above: Performed By: #### L 500.4050, L501.9985, L100.0500 #### [facility] [address] [place], [address] ALK P 97 U/L Normal 45-117 [facility] Comment on above: Performed By: #### L 500.4050, L501.9985, L100.0500 #### [facility] [address] [place], [address] ALT [Catalytic activity/Vol] 18 U/L Normal 16-61 [facility] Comment on above: Performed By: #### L 500.4050, L501.9985, L100.0500 #### [facility] [address] [place], [address] AST [Catalytic activity/Vol] 7 U/L Low 15-37 [facility] Comment on above: Performed By: #### L 500.4050, L501.9985, L100.0500 #### [facility] [address] [place], [address] Bilirubin [Mass/Vol] 0.40 mg/dL Normal 0.20-1.00 [facility] Comment on above: Result Comment: For patients on eltrombopag therapy, use of Dimension [place] TBIL is not recommended. Performed By: #### L 500.4050, L501.9985, L100.0500 #### [facility] [address] [place], [address] BUN/CRE 29.1 RATIO High 10-20 [facility] Comment on above: Performed By: #### L 500.4050, L501.9985, L100.0500 #### [facility] [address] [place], [address] CA,Total 9.3 mg/dL Normal 8.5-10.1 [facility] Comment on above: Performed By: #### L 500.4050, L501.9985, L100.0500 #### [facility] [address] [place], [address] Chloride [Moles/Vol] 106 mmol/L Normal 98-107 [facility] Comment on above: Performed By: #### L 500.4050, L501.9985, L100.0500 #### [facility] [address] [place], [address] CO2 [Moles/Vol] 29.0 mmol/L Normal 21.0-32.0 [facility] Comment on above: Performed By: #### L 500.4050, L501.9985, L100.0500 #### [facility] [address] [place], [address] Creatinine [Mass/Vol] 1.10 mg/dL Normal 0.70-1.30 [facility] Comment on above: Result Comment: The validity of the calculated GFR GFRAA in patients over 70 years has not been determined. Clinical correlation is essential. Performed By: #### L 500.4050, L501.9985, L100.0500 #### [facility] [address] [place], [address] EST GFR - AA 84 mL/min Normal >60 [facility] Comment on above: Result Comment: Afri can Haitian GFR Calc Performed By: #### L 500.4050, L501.9985, L100.0500 #### [facility] [address] [place], [address] GAP 5 Normal 5-15 [facility] Comment on above: Performed By: #### L 500.4050, L501.9985, L100.0500 #### [facility] [address] [place], [address] GFR/1.73 sq M.predicted among non-blacks MDRD (S/P/Bld) [Vol rate/Area] 69 mL/min/{1.73_m2} Normal >60 [facility] Comment on above: Result Comment: Non- GFR Calc Performed By: #### L 500.4050, L501.9985, L100.0500 #### [facility] [address] [place], [address] Globulin (S) [Mass/Vol] 2.8 g/dL Normal 2.2-4.2 [facility] Comment on above: Performed By: #### L 500.4050, L501.9985, L100.0500 #### [facility] [address] [place], [address] Glucose [Mass/Vol] 133 mg/dL High 74-106 [facility] Comment on above: Result Comment: Fast ing Glucose result greater than or equal to 126 mg/dL suggests DIABETES MELLITUS per A.D.A. criteria. Performed By: #### L 500.4050, L501.9985, L100.0500 #### [facility] [address] [place], [address] Potassium [Moles/Vol] 3.8 mmol/L Normal 3.5-5.1 [facility] Comment on above: Performed By: #### L 500.4050, L501.9985, L100.0500 #### [facility] [address] [place], [address] Sodium [Moles/Vol] 140 mmol/L Normal 136-145 [facility] Comment on above: Performed By: #### L 500.4050, L501.9985, L100.0500 #### [facility] [address] [place], [address] T PROT 5.9 g/dL Low 6.4-8.2 [facility] Comment on above: Performed By: #### L 500.4050, L501.9985, L100.0500 #### [facility] [address] [place], [address] Urea nitrogen [Mass/Vol] 32 mg/dL High 7-18 [facility] Comment on above: Performed By: #### L 500.4050, L501.9985, L100.0500 #### [facility] [address] [place], [address] Lipid Profileon 04-08-2024 Cholesterol [Mass/Vol] 100 mg/dL Normal 200 [facility] Comment on above: Result Comment: <200 mg/dL Desirable 200-240 mg/dL Borderline >240 mg/dL High Risk Performed By: #### L 500.4050, L501.9985, L100.0500 #### [facility] [address] [place], [address] Cholesterol in HDL [Mass/Vol] 34 mg/dL Low [facility] Comment on above: Result Comment: The drugs N-Acetylcysteine and Metamizole may falsely depress this assay. Reference Range HDL <40 mg/dL Low HDL Cholesterol HDL >or= 60 mg/dL High HDL Cholesterol Performed By: #### L 500.4050, L501.9985, L100.0500 #### [facility] [address] [place], [address] Cholesterol in LDL [Mass/Vol] 36 mg/dL Normal 0-130 [facility] Comment on above: Performed By: #### L 500.4050, L501.9985, L100.0500 #### [facility] [address] [place], [address] Cholesterol in VLDL [Mass/Vol] 30 mg/dL Normal 5-40 [facility] Comment on above: Performed By: #### L 500.4050, L501.9985, L100.0500 #### [facility] [address] [place], [address] Triglyceride [Mass/Vol] 148 mg/dL Normal [facility] Comment on above: Result Comment: The drugs N-Acetylcysteine and Metamizole may falsely depress this assay. Serum Triglycerides Reference Interval Normal <150 mg/dL Borderline high 150 - 199 mg/dL High 200 - 499 mg/dL Very High > or = 500 mg/dL Performed By: #### L 500.4050, L501.9985, L100.0500 #### [facility] [address] [place], [address] Cardiology Visit Reporton Cardiology Visit Report [facility] [address] [place], [place] [id number] OFFICE VISIT Date of Service: 04/07/24 MR#: [id number] Acct: [id number] Name: RICHARD ROY Rep #: [id number] : 1945 Provider: Dr. Olga Lidia Rasheed MD Age/Sex: 78/M [place] [facility] Status: Signed HPI [facility] History of Present Illness Details: This gentleman [...] bisacodyl 10 mg rectal suppository 10 mg SC DAILY PRN constipation 05/30/23 04/07/24 History loperamide [...] Hypertension Father Heart disease Social History housing: long-term current occupational status: retired Smoking Status: Never smoker alcohol intake: never substance use type: does not use ROS Const Const: Negative for fatigue, weakness or headache(s) ENT ENT: Negative for headache(s), dizziness, Nosebleed/epistaxis or balance problems Cardio Chest Pain: No Palpitations: No Edema: None Muscle aches with walking: None Resp Respi (more content not included)... Normal [facility] Protime w/INR Fingerstickon 03-02-2024 INR Coag (PPP) [Relative time] 1.7 {INR} Normal [facility] Comment on above: Result Comment: Crit ical Value > 4.0 Performed By: #### L 500.4050, L501.9985, L100.0500 #### [facility] [address] [place], [address] Protime Coagsen 18.4 SEC High 11.7-14.9 [facility] Comment on above: Performed By: #### L 500.4050, L501.9985, L100.0500 #### [facility] [address] [place], [address] Prothrombin Time w/INRon INR Coag (PPP) [Relative time] 2.9 {INR} Normal [facility] Comment on above: Order Comment: 215.2 Performed By: #### L 300.3900 #### [facility] [address] [place], [address] PT Coag (PPP) [Time] 30.1 s High 11.7-14.9 [facility] Comment on above: Order Comment: 215.2 Performed By: #### L 300.3900 #### [facility] [address] [place], [address] Prothrombin Time w/INRon INR Coag (PPP) [Relative time] 2.2 {INR} Normal [facility] Comment on above: Performed By: #### L 500.4050, L501.9985, L100.0500 #### [facility] [address] [place], [address] PT Coag (PPP) [Time] 24.6 s High 11.7-14.9 [facility] Comment on above: Performed By: #### L 500.4050, L501.9985, L100.0500 #### [facility] [address] [place], [address] Protime w/INR Fingerstickon 02-17-2024 INR Coag (PPP) [Relative time] 1.8 {INR} Normal [facility] Comment on above: Result Comment: Crit ical Value > 4.0 Performed By: #### L 500.4050, L501.9985, L100.0500 #### [facility] [address] [place], [address] Protime [place] 19.6 SEC High 11.7-14.9 [facility] Comment on above: Performed By: #### L 500.4050, L501.9985, L100.0500 #### [facility] [address] [place], [address] Prothrombin Time w/INRon INR Coag (PPP) [Relative time] 2.6 {INR} Normal [facility] Comment on above: Order Comment: 215.2 Performed By: #### L 300.3900 #### [facility] [address] [place], [address] PT Coag (PPP) [Time] 27.9 s High 11.7-14.9 [facility] Comment on above: Order Comment: 215.2 Performed By: #### L 300.3900 #### [facility] [address] [place], [address] Prothrombin Time w/INRon INR Coag (PPP) [Relative time] 3.5 {INR} Normal [facility] Comment on above: Order Comment: 215.2 Performed By: #### L 300.3900 #### [facility] [address] [place], [address] PT Coag (PPP) [Time] 34.9 s High 11.7-14.9 [facility] Comment on above: Order Comment: 215.2 Performed By: #### L 300.3900 #### [facility] [address] [place], [address] Prothrombin Time w/INRon INR Coag (PPP) [Relative time] 3.3 {INR} Normal [facility] Comment on above: Order Comment: 215.2 Performed By: #### L 500.4050, L501.9985, L100.0500 #### [facility] [address] [place], [address] PT Coag (PPP) [Time] 33.5 s High 11.7-14.9 [facility] Comment on above: Order Comment: 215.2 Performed By: #### L [id number], L501.9985, L100.0500 #### [facility] [address] [place], [address] Protime w/INR Fingerstickon 02-03-2024 INR Coag (PPP) [Relative time] 2.6 {INR} Normal [facility] Comment on above: Result Comment: Crit ical Value > 4.0 Performed By: #### L 300.3900 #### [facility] [address] [place], [address] Protime Coagsen 26.7 SEC High 11.7-14.9 [facility] Comment on above: Performed By: #### L [id number] #### [facility] [address] [place], [address] Protime w/INR Fingerstickon 01-27-2024 INR Coag (PPP) [Relative time] 2.1 {INR} Normal [facility] Comment on above: Result Comment: Crit ical Value > 4.0 Performed By: #### L [id number], L501.9985, L100.0500 #### [facility] [address] [place], [address] Protime Coagsen 22.1 SEC High 11.7-14.9 [facility] Comment on above: Performed By: #### L [id number], [id number], L100.0500 #### [facility] [address] [place], [address] Prothrombin Time w/INRon INR Coag (PPP) [Relative time] 2.3 {INR} Normal [facility] Comment on above: Performed By: #### L [id number], L501.9985, L100.0500 #### [facility] [address] [place], [address] PT Coag (PPP) [Time] 25.4 s High 11.7-14.9 [facility] Comment on above: Performed By: #### L [id number], L501.9985, L100.0500 #### [facility] [address] [place], [address] Vitamin D,25 Hydroxyon 01-15 Vitamin D 25-OH 91.1 ng/mL Normal [facility] Comment on above: Order Comment: 215.2 Result Comment: Laure min D 25(OH) Status Range Deficiency <20 ng/mL (50nmol/L) Insufficiency 20 - 30 ng/mL (50 - 75 nmol/L) Sufficiency 30 - 100 ng/mL (75 - 250 nmol/L) Toxicity >100 ng/mL (>250 nmol/L) Performed By: #### L 300.3900 #### [facility] [address] [place], [address] CBC-Complete Blood Cnt No Di ffon 01-15-2024 Erythrocyte distribution width (RBC) [Ratio] 14.4 % Normal 11.6-14.6 [facility] Comment on above: Order Comment: 215.2 Performed By: #### L 300.3900 #### [facility] [address] [place], [address] Hematocrit (Bld) [Volume fraction] 40.5 % Normal 40-54 [facility] Comment on above: Order Comment: 215.2 Performed By: #### L [id number] #### [facility] [address] [place], [address] Hemoglobin (Bld) [Mass/Vol] 13.0 g/dL Normal 13.0-16. 5 [facility] Comment on above: Order Comment: 215.2 Performed By: #### L [id number] #### [facility] [address] [place], [address] MCH (RBC) [Entitic mass] 27.6 pg Normal 27.0-32.0 [facility] Comment on above: Order Comment: 215.2 Performed By: #### L 300.3900 #### [facility] [address] [place], [address] MCHC (RBC) [Mass/Vol] 32.1 g/dL Normal 32-36 [facility] Comment on above: Order Comment: 215.2 Performed By: #### L 300.3900 #### [facility] [address] [place], [address] MCV (RBC) [Entitic vol] 86.0 fL Normal 80-94 [facility] Comment on above: Order Comment: 215.2 Performed By: #### L [id number] #### [facility] [address] [place], [address] Platelet mean volume (Bld) [Entitic vol] 9.7 fL Normal 6.2-12.0 [facility] Comment on above: Order Comment: 215.2 Performed By: #### L [id number] #### [facility] [address] [place], [address] Platelets (Bld) [#/Vol] 228 10*3/uL Normal 150-450 [facility] Comment on above: Order Comment: 215.2 Performed By: #### L [id number] #### [facility] [address] [place], [address] RBC (Bld) [#/Vol] 4.71 10*6/uL Normal 4.6-6.2 [facility] Comment on above: Order Comment: 215.2 Performed By: #### L [id number] #### [facility] [address] [place], [address] RDW SD 44.4 fl High 35.1-43.9 [facility] Comment on above: Order Comment: 215.2 Performed By: #### L 300.3900 #### [facility] [address] [place], [address] WBC (Bld) [#/Vol] 8.8 10*3/uL Normal 4.4-11.0 [facility] Comment on above: Order Comment: 215.2 Performed By: #### L 300.3900 #### [facility] [address] [place], [address] Comprehensive Metabolic Prof ilon 01-15-2024 Albumin [Mass/Vol] 3.2 g/dL Normal 3.2-5.0 [facility] Comment on above: Order Comment: 215.2 Performed By: #### L 300.3900 #### [facility] [address] [place], [address] Albumin/Globulin [Mass ratio] 1.0 {ratio} Normal 0.9-2.4 [facility] Comment on above: Order Comment: 215.2 Performed By: #### L 300.3900 #### [facility] [address] [place], [address] ALK P 105 U/L Normal 45-117 [facility] Comment on above: Order Comment: 215.2 Performed By: #### L 300.3900 #### [facility] [address] [place], [address] ALT [Catalytic activity/Vol] 27 U/L Normal 16-61 [facility] Comment on above: Order Comment: 215.2 Performed By: #### L 300.3900 #### [facility] [address] [place], [address] AST [Catalytic activity/Vol] 8 U/L Low 15-37 [facility] Comment on above: Order Comment: 215.2 Performed By: #### L [id number] #### [facility] [address] [place], [address] Bilirubin [Mass/Vol] 0.40 mg/dL Normal 0.20-1.00 [facility] Comment on above: Order Comment: 215.2 Result Comment: For patients on eltrombopag therapy, use of Dimension [place] TBIL is not recommended. Performed By: #### L 300.3900 #### [facility] [address] [place], [address] BUN/CRE 22.0 RATIO High 10-20 [facility] Comment on above: Order Comment: 215.2 Performed By: #### L 300.3900 #### [facility] [address] [place], [address] CA,Total 9.1 mg/dL Normal 8.5-10.1 [facility] Comment on above: Order Comment: 215.2 Performed By: #### L 300.3900 #### [facility] [address] [place], [address] Chloride [Moles/Vol] 105 mmol/L Normal 98-107 [facility] Comment on above: Order Comment: 215.2 Performed By: #### L 300.3900 #### [facility] [address] [place], [address] CO2 [Moles/Vol] 30.0 mmol/L Normal 21.0-32.0 [facility] Comment on above: Order Comment: 215.2 Performed By: #### L 300.3900 #### [facility] [address] [place], [address] Creatinine [Mass/Vol] 1.27 mg/dL Normal 0.70-1.30 [facility] Comment on above: Order Comment: 215.2 Result Comment: The validity of the calculated GFR GFRAA in patients over 70 years has not been determined. Clinical correlation is essential. Performed By: #### L 300.3900 #### [facility] [address] [place], [address] EST GFR - AA 71 mL/min Normal >60 [facility] Comment on above: Order Comment: 215.2 Result Comment: Afri can Haitian GFR Calc Performed By: #### L 300.3900 #### [facility] [address] [place], [address] GAP 6 Normal 5-15 [facility] Comment on above: Order Comment: 215.2 Performed By: #### L 300.3900 #### [facility] [address] [place], [address] GFR/1.73 sq M.predicted among non-blacks MDRD (S/P/Bld) [Vol rate/Area] 59 mL/min/{1.73_m2} Low >60 [facility] Comment on above: Order Comment: 215.2 Result Comment: Non- GFR Calc Performed By: #### L 300.3900 #### [facility] [address] [place], [address] Globulin (S) [Mass/Vol] 3.1 g/dL Normal 2.2-4.2 [facility] Comment on above: Order Comment: 215.2 Performed By: #### L 300.3900 #### [facility] [address] [place], [address] Glucose [Mass/Vol] 150 mg/dL High 74-106 [facility] Comment on above: Order Comment: 215.2 Result Comment: Fast ing Glucose result greater than or equal to 126 mg/dL suggests DIABETES MELLITUS per A.D.A. criteria. Performed By: #### L 300.3900 #### [facility] [address] [place], [address] Potassium [Moles/Vol] 4.1 mmol/L Normal 3.5-5.1 [facility] Comment on above: Order Comment: 215.2 Performed By: #### L 300.3900 #### [facility] [address] [place], [address] Sodium [Moles/Vol] 141 mmol/L Normal 136-145 [facility] Comment on above: Order Comment: 215.2 Performed By: #### L 300.3900 #### [facility] [address] [place], [address] T PROT 6.3 g/dL Low 6.4-8.2 [facility] Comment on above: Order Comment: 215.2 Performed By: #### L 300.3900 #### [facility] [address] [place], [address] Urea nitrogen [Mass/Vol] 28 mg/dL High 7-18 [facility] Comment on above: Order Comment: 215.2 Performed By: #### L 300.3900 #### [facility] [address] [place], [address] Hemoglobin A1con 01-15-2024 HbA1c (Bld) [Mass fraction] 6.5 % High 3.8-5.6 [facility] Comment on above: Order Comment: 215.2 Result Comment: Norm al < 5.7 % Prediabetic 5.7 - 6.4 % Diabetic >or= 6.5 % Please note range changes. Performed By: #### L 300.3900 #### [facility] [address] [place], [address] Prothrombin Time w/INRon INR Coag (PPP) [Relative time] 2.5 {INR} Normal [facility] Comment on above: Order Comment: 215.2 Performed By: #### L 300.3900 #### [facility] [address] [place], [address] PT Coag (PPP) [Time] 27.2 s High 11.7-14.9 [facility] Comment on above: Order Comment: 215.2 Performed By: #### L 300.3900 #### [facility] [address] [place], [address] Thyroid Stim Hormone (TSH)on 01-15-2024 TSH 1.55 uIU/mL Normal 0.358-3.74 [facility] Comment on above: Order Comment: 215.2 Performed By: #### L 300.3900 #### [facility] [address] [place], [address] Protime w/INR Fingerstickon 01-14-2024 INR Coag (PPP) [Relative time] 3.8 {INR} Normal [facility] Comment on above: Result Comment: Crit ical Value > 4.0 Performed By: #### L 9200.0000 #### [facility] [address] [place], [place], [id number] Protime Coagsen 37.5 SEC High 11.7-14.9 [facility] Comment on above: Performed By: #### L 9200.0000 #### [facility] [address] [place], [place], [address] Prothrombin Time w/INRon INR Coag (PPP) [Relative time] 3.9 {INR} Normal [facility] Comment on above: Order Comment: 215.2 Performed By: #### L [id number] #### [facility] [address] [place], [place], [id number] (664) PT Coag (PPP) [Time] 37.6 s High 11.7-14.9 [facility] Comment on above: Order Comment: 215.2 Performed By: #### L 300.3900 #### [facility] [address] [place], [place], [id number] Laboratory - CoagulationOrde red By: Walter Becker on 10-25-2023 INR Coag (Bld) [Relative time] 3.2 {INR} [facility] PT Coag (PPP) [Time] 32.9 s 11.7-14.9 [facility] Laboratory - CoagulationOrde red By: Walter Becker on 10-16-2023 INR Coag (Bld) [Relative time] 1.9 {INR} [facility] PT Coag (PPP) [Time] 21.6 s 11.7-14.9 [facility] Basophil percentageOrdered B y: Walter Becker on 10-08-2023 Cholesterol [Mass/Vol] 107 mg/dL <200 [facility] Comment on above: <200 mg/dL Desirable 200-240 mg/dL Borderline >240 mg/dL High Risk Triglyceride [Mass/Vol] 133 mg/dL <199 [facility] Comment on above: The drugs N-Acetylcy steine and Metamizole may falsely depress this assay.Serum Triglycerides Reference Interval Normal <150 mg/dL Borderline high 150 - 199 mg/dL High 200 - 499 mg/dL Very High > or = 500 mg/dL Laboratory - Chemistry and C hemistry - challengeOrdered By: Walter Becker on 10-08-2023 ALT [Catalytic activity/Vol] 18 U/L 16-61 [facility] Cholesterol in HDL [Mass/Vol] 35 mg/dL >40 [facility] Comment on above: The drugs N-Acetylcy steine and Metamizole may falsely depress this assay. Reference Range HDL <40 mg/dL Low HDL Cholesterol HDL >or= 60 mg/dL High HDL Cholesterol Cholesterol in LDL [Mass/Vol] 45 mg/dL 0-130 [facility] CK [Catalytic activity/Vol] 59 U/L 39-308 [facility] No Panel InformationOrdered By: Walter Becker on 10-08-2023 VLDL Cholesterol 27 mg/dL 5-40 [facility] Thin prep Papanicolaou smear with manual screeningOrdered By: Walter Becker on 10-08-2023 Thin prep Papanicolaou smear with manual screening 10 U/L 15-37 [facility] Capillary blood internationa l normalized ratio (INR)Ordered By: Walter Becker on 10-04-2023 INR Coag (BldC) [Relative time] 2.2 [facility] Comment on above: Critical Value > 4.0 Whole blood prothrombin time Ordered By: Walter Becker on 10-04-2023 PT Coag (Bld) [Time] 22.6 s 11.7-14.9 [facility] Capillary blood internationa l normalized ratio (INR)Ordered By: Walter Becker on 10-01-2023 INR Coag (BldC) [Relative time] 1.9 [facility] Comment on above: Critical Value > 4.0 Whole blood prothrombin time Ordered By: Walter Becker on 10-01-2023 PT Coag (Bld) [Time] 19.9 s 11.7-14.9 [facility] Basophil percentageOrdered B y: Walter Becker on 09-25-2023 Bilirubin [Mass/Vol] 0.30 mg/dL 0.20-1.00 [facility] Comment on above: For patients on eltr ombopag therapy, use of Dimension [place] TBIL is not recommended. Chloride [Moles/Vol] 105 mmol/L 98-107 [facility] Glucose [Mass/Vol] 125 mg/dL 74-106 [facility] Comment on above: Fasting Glucose resu lt from 100 to 125 mg/dL suggests IMPAIRED HOMEOSTASIS per A.D.A. criteria. Hemoglobin (Bld) [Mass/Vol] 12.6 g/dL 13.0-16. 5 [facility] Potassium [Moles/Vol] 4.2 mmol/L 3.5-5.1 [facility] Protein [Mass/Vol] 6.2 g/dL 6.4-8.2 [facility] Sodium [Moles/Vol] 140 mmol/L 136-145 [facility] WBC (Bld) [#/Vol] 10.6 10*3/uL 4.4-11.0 [facility] Determination of erythrocyte mean corpuscular volume (MCV)Ordered By: Walter Becker on 09-25-2023 MCV (RBC) [Entitic vol] 85.8 fL 80-94 [facility] Erythrocyte distribution wid th ratioOrdered By: Walter Becker on 09-25-2023 Erythrocyte distribution width (RBC) [Ratio] 13.7 % 11.6-14.6 [facility] Erythrocyte distribution wid th standard deviationOrdered By: Walter Becker on 09-25-2023 Erythrocyte distribution width (RBC) [Entitic vol] 42.4 fL 35.1-43.9 [facility] Hematocrit Auto (Bld) [Volum e fraction]Ordered By: Walter Becker on 09-25-2023 Hematocrit (Bld) [Volume fraction] 39.4 % 40-54 [facility] - Chemistry and C hemistry - challengeOrdered By: Walter Becker on 09-25-2023 Albumin/Globulin [Mass ratio] 1.1 {ratio} 0.9-2.4 [facility] ALP [Catalytic activity/Vol] 107 U/L 45-117 [facility] ALT [Catalytic activity/Vol] 19 U/L 16-61 [facility] CO2 [Moles/Vol] 29.0 mmol/L 21.0-32.0 [facility] Globulin (S) [Mass/Vol] 3.0 g/dL 2.2-4.2 [facility] Urea nitrogen/Creatinine [Mass ratio] 29.8 mg/mg 10-20 [facility] - CoagulationOrde red By: Walter Becker on 09-25-2023 INR Coag (Bld) [Relative time] 2.8 {INR} [facility] PT Coag (PPP) [Time] 28.9 s 11.7-14.9 [facility] Laboratory - Hematology and Cell countsOrdered By: Walter Becker on 09-25-2023 MCH (RBC) [Entitic mass] 27.5 pg 27.0-32.0 [facility] MCHC (RBC) [Mass/Vol] 32.0 g/dL 32-36 [facility] Platelet mean volume (Bld) [Entitic vol] 9.9 fL 6.2-12.0 [facility] Platelets (Bld) [#/Vol] 235 10*3/uL 150-450 [facility] No Panel InformationOrdered By: Walter Becker on 09-25-2023 Estimated GFR (MDRD) Amer 75 mL/min >60 [facility] Comment on above: GFR Calc Estimated GFR (MDRD) Non-Af Amer 62 mL/min >60 [facility] Comment on above: Non- GFR Calc RBC Auto (Bld) [#/Vol]Ordere d By: Walter Becker on 09-25-2023 RBC (Bld) [#/Vol] 4.59 10*6/uL 4.6-6.2 [facility] Serum or plasma calcium antoine urement (mass/volume)Ordered By: Walter Becker on 09-25-2023 Calcium [Mass/Vol] 9.6 mg/dL 8.5-10.1 [facility] Serum or plasma creatinine m easurement (mass/volume)Ordered By: Walter Becker on 09-25-2023 Creatinine [Mass/Vol] 1.21 mg/dL 0.70-1.30 [facility] Comment on above: The validity of the calculated GFR & GFRAA in patients over 70 years has not been determined. Clinical correlation is essential. Serum or plasma urea nitroge n measurement (mass/volume)Ordered By: Walter Becker on 09-25-2023 Urea nitrogen [Mass/Vol] 36 mg/dL 7-18 [facility] Thin prep Papanicolaou smear with manual screeningOrdered By: Walter Becker on 09-25-2023 Thin prep Papanicolaou smear with manual screening 3.2 g/dL 3.2-5.0 [facility] Thin prep Papanicolaou smear with manual screening 11 U/L 15-37 [facility] Thin prep Papanicolaou smear with manual screening 6 5-15 [facility] - CoagulationOrde red By: Walter Becker on 09-18-2023 INR Coag (Bld) [Relative time] 1.6 {INR} [facility] PT Coag (PPP) [Time] 18.7 s 11.7-14.9 [facility] Capillary blood internationa l normalized ratio (INR)Ordered By: Walter Becker on 09-13-2023 INR Coag (BldC) [Relative time] 3.1 [facility] Comment on above: Critical Value > 4.0 Whole blood prothrombin time Ordered By: Walter Becker on 09-13-2023 PT Coag (Bld) [Time] 33.3 s 11.7-14.9 [facility] Capillary blood internationa l normalized ratio (INR)Ordered By: Walter Becker on 09-12-2023 INR Coag (BldC) [Relative time] 1.7 [facility] Comment on above: Critical Value > 4.0 Whole blood prothrombin time Ordered By: Walter Becker on 09-12-2023 PT Coag (Bld) [Time] 19.2 s 11.7-14.9 [facility] Capillary blood internationa l normalized ratio (INR)Ordered By: Walter Becker on 09-09-2023 INR Coag (BldC) [Relative time] 2.9 [facility] Comment on above: Critical Value > 4.0 Whole blood prothrombin time Ordered By: Walter Becker on 09-09-2023 PT Coag (Bld) [Time] 31.5 s 11.7-14.9 [facility] - CoagulationOrde red By: Walter Becker on 08-26-2023 INR Coag (Bld) [Relative time] 2.2 {INR} [facility] PT Coag (PPP) [Time] 24.7 s 11.7-14.9 [facility] Capillary blood internationa l normalized ratio (INR)Ordered By: Walter Becker on 08-19-2023 INR Coag (BldC) [Relative time] 2.7 [facility] Comment on above: Critical Value > 4.0 Whole blood prothrombin time Ordered By: Walter Becker on 08-19-2023 PT Coag (Bld) [Time] 29.2 s 11.7-14.9 [facility] Capillary blood internationa l normalized ratio (INR)Ordered By: Walter Becker on 08-12-2023 INR Coag (BldC) [Relative time] 2.5 [facility] Comment on above: Critical Value > 4.0 Whole blood prothrombin time Ordered By: Walter Becker on 08-12-2023 PT Coag (Bld) [Time] 26.7 s 11.7-14.9 [facility] Capillary blood internationa l normalized ratio (INR)Ordered By: Walter Becker on 08-05-2023 INR Coag (BldC) [Relative time] 1.9 [facility] Comment on above: Critical Value > 4.0 Whole blood prothrombin time Ordered By: Walter Becker on 08-05-2023 PT Coag (Bld) [Time] 20.7 s 11.7-14.9 [facility] - CoagulationOrde red By: Walter Becker on 07-29-2023 INR Coag (Bld) [Relative time] 2.3 {INR} [facility] Comment on above: Critical Value > 4.0 Whole blood prothrombin time Ordered By: Walter Becker on 07-29-2023 PT Coag (Bld) [Time] 25.0 s 11.7-14.9 [facility] - CoagulationOrde red By: Walter Becker on 07-22-2023 INR Coag (Bld) [Relative time] 2.0 {INR} [facility] Comment on above: Critical Value > 4.0 Whole blood prothrombin time Ordered By: Walter Becker on 07-22-2023 PT Coag (Bld) [Time] 22.4 s 11.7-14.9 [facility] - CoagulationOrde red By: Walter Becker on 07-19-2023 INR Coag (Bld) [Relative time] 3.4 {INR} [facility] Comment on above: Critical Value > 4.0 Whole blood prothrombin time Ordered By: Walter Becker on 07-19-2023 PT Coag (Bld) [Time] 36.2 s 11.7-14.9 [facility] - CoagulationOrde red By: Walter Becker on 07-17-2023 INR Coag (Bld) [Relative time] 3.0 {INR} [facility] Comment on above: Critical Value > 4.0 Whole blood prothrombin time Ordered By: Walter Becker on 07-17-2023 PT Coag (Bld) [Time] 32.2 s 11.7-14.9 [facility] - CoagulationOrde red By: Walter Becker on 07-10-2023 INR Coag (Bld) [Relative time] 2.3 {INR} [facility] Comment on above: Critical Value > 4.0 Whole blood prothrombin time Ordered By: Walter Becker on 07-10-2023 PT Coag (Bld) [Time] 25.4 s 11.7-14.9 [facility] - CoagulationOrde red By: Walter Becker on 07-03-2023 INR Coag (Bld) [Relative time] 1.5 {INR} [facility] Comment on above: Critical Value > 4.0 Whole blood prothrombin time Ordered By: Walter Becker on 07-03-2023 PT Coag (Bld) [Time] 16.5 s 11.7-14.9 [facility] - CoagulationOrde red By: Walter Becker on 06-26-2023 INR Coag (Bld) [Relative time] 2.3 {INR} [facility] Comment on above: Critical Value > 4.0 Whole blood prothrombin time Ordered By: Walter Becker on 06-26-2023 PT Coag (Bld) [Time] 24.7 s 11.7-14.9 [facility] - CoagulationOrde red By: Walter Becker on 06-25-2023 INR Coag (Bld) [Relative time] 3.2 {INR} [facility] Comment on above: Critical Value > 4.0 Whole blood prothrombin time Ordered By: Walter Becker on 06-25-2023 PT Coag (Bld) [Time] 34.3 s 11.7-14.9 [facility] - CoagulationOrde red By: Walter Becker on 06-24-2023 INR Coag (Bld) [Relative time] 3.4 {INR} [facility] Comment on above: Critical Value > 4.0 Whole blood prothrombin time Ordered By: Walter Becker on 06-24-2023 PT Coag (Bld) [Time] 36.4 s 11.7-14.9 [facility] - CoagulationOrde red By: Walter Becker on 06-17-2023 INR Coag (Bld) [Relative time] 2.4 {INR} [facility] Comment on above: Critical Value > 4.0 Whole blood prothrombin time Ordered By: Walter Becker on 06-17-2023 PT Coag (Bld) [Time] 26.1 s 11.7-14.9 [facility] - CoagulationOrde red By: Walter Becker on 06-10-2023 INR Coag (Bld) [Relative time] 1.4 {INR} [facility] Comment on above: Critical Value > 4.0 Whole blood prothrombin time Ordered By: Walter Becker on 06-10-2023 PT Coag (Bld) [Time] 15.9 s 11.7-14.9 [facility] [facility] Glucose Glucometer (BldC) [M ass/Vol]Ordered By: Kee Merritt on 06-03-2023 Glucose [Mass/Vol] 130 mg/dL 74-106 [facility] Comment on above: MANAGEMENT OF PATIEN T CARE PER NURSING PROTOCOL Laboratory - CoagulationOrde red By: Walter Becker on 05-20-2023 INR Coag (Bld) [Relative time] 2.6 {INR} [facility] Comment on above: Critical Value > 4.0 No Panel InformationOrdered By: Walter Becker on 05-20-2023 2.6 [facility] Whole blood prothrombin time Ordered By: Walter Becker on 05-20-2023 PT Coag (Bld) [Time] 27.6 s 11.7-14.9 [facility] Basophil percentageOrdered B y: Walter Becker on 05-15-2023 Basophil percentage 0 SEEN /hpf 0-5 [facility] Basophil percentage 114 mg/dL 74-106 [facility] Basophil percentage 5.9 g/dL 6.4-8.2 [facility] Basophil percentage 0.40 mg/dL 0.20-1.00 [facility] Basophil percentage 140 mmol/L 136-145 [facility] Basophil percentage 4.1 mmol/L 3.5-5.1 [facility] Basophil percentage 105 mmol/L 98-107 [facility] Basophils (Bld) [#/Vol] 10.4 10*3/uL 4.4-11.0 [facility] Bilirubin [Mass/Vol] 0.40 mg/dL 0.20-1.00 [facility] Comment on above: For patients on eltr ombopag therapy, use of Dimension [place] TBIL is not recommended. Chloride [Moles/Vol] 105 mmol/L 98-107 [facility] Glucose [Mass/Vol] 114 mg/dL 74-106 [facility] Comment on above: Fasting Glucose resu lt from 100 to 125 mg/dL suggests IMPAIRED HOMEOSTASIS per A.D.A. criteria. Potassium [Moles/Vol] 4.1 mmol/L 3.5-5.1 [facility] Protein [Mass/Vol] 5.9 g/dL 6.4-8.2 [facility] Sodium [Moles/Vol] 140 mmol/L 136-145 [facility] WBC (Bld) [#/Vol] 10.4 10*3/uL 4.4-11.0 [facility] Bilirubin Test strip Ql (U)O rdered By: Walter Becker on 05-15-2023 Bilirubin Ql (U) Negative Negative [facility] Blood erythrocytes count (nu mber/volume)Ordered By: Walter Becker on 05-15-2023 RBC (Bld) [#/Vol] 4.37 10*6/uL 4.6-6.2 [facility] Blood hemoglobin measurement (mass/volume)Ordered By: Walter Becker on 05-15-2023 Hemoglobin (Bld) [Mass/Vol] 11.6 g/dL 13.0-16. 5 [facility] Blood platelet mean volumeOr dered By: Walter Becker on 05-15-2023 Platelet mean volume (Bld) [Entitic vol] 9.4 fL 6.2-12.0 [facility] Culture, urineOrdered By: Horner on 05-15-2023 Bacteria identified Cx Nom (U) Culture exhibits no growth. [facility] Determination of erythrocyte mean corpuscular volume (MCV)Ordered By: Walter Becker on 05-15-2023 MCV (RBC) [Entitic vol] 84.7 fL 80-94 [facility] Hematocrit Auto (Bld) [Volum e fraction]Ordered By: Walter Becker on 05-15-2023 Hematocrit (Bld) [Volume fraction] 37.0 % 40-54 [facility] Ketones Test strip Ql (U)Ord ered By: Walter Becker on 05-15-2023 Ketones Ql (U) Negative Negative [facility] Laboratory - Chemistry and C hemistry - challengeOrdered By: Walter Becker on 05-15-2023 ALP [Catalytic activity/Vol] 97 U/L 45-117 [facility] ALT [Catalytic activity/Vol] 21 U/L 16-61 [facility] CO2 [Moles/Vol] 28.0 mmol/L 21.0-32.0 [facility] Globulin (S) [Mass/Vol] 3.0 g/dL 2.2-4.2 [facility] Urea nitrogen/Creatinine [Mass ratio] 30.7 mg/mg 10-20 [facility] Laboratory - Hematology and Cell countsOrdered By: Walter Becker on 05-15-2023 Erythrocyte distribution width (RBC) [Entitic vol] 43.3 fL 35.1-43.9 [facility] Erythrocyte distribution width (RBC) [Ratio] 14.1 % 11.6-14.6 [facility] MCH (RBC) [Entitic mass] 26.5 pg 27.0-32.0 [facility] MCHC Auto (RBC) [Mass/Vol]Or dered By: Walter Becker on 05-15-2023 MCHC (RBC) [Mass/Vol] 31.4 g/dL 32-36 [facility] Mucus LM Ql (Urine sed)Order ed By: Walter Becker on 05-15-2023 Mucus Ql (Urine sed) 0 SEEN /hpf [facility] Nitrite Test strip Ql (U)Ord ered By: Walter Becker on 05-15-2023 Nitrite Ql (U) Negative Negative [facility] No Panel InformationOrdered By: Walter Becker on 05-15-2023 Estimated GFR (MDRD) Amer 96 mL/min >60 [facility] Comment on above: GFR Calc Estimated GFR (MDRD) Non-Af Amer 79 mL/min >60 [facility] Comment on above: Non- GFR Calc 26.5 pg 27.0-32.0 [facility] 14.1 % 11.6-14.6 [facility] 43.3 fl 35.1-43.9 [facility] 79 mL/min >60 [facility] 96 mL/min >60 [facility] 30.7 RATIO 10-20 [facility] 3.0 g/dL 2.2-4.2 [facility] 97 U/L 45-117 [facility] 21 U/L 16-61 [facility] 28.0 mmol/L 21.0-32.0 [facility] Platelets bldOrdered By: Crystal Becker on 05-15-2023 Platelets (Bld) [#/Vol] 256 10*3/uL 150-450 [facility] Protein Test strip Ql (U)Ord ered By: Walter Becker on 05-15-2023 Protein Ql (U) Negative Negative [facility] Serum or plasma albumin antoine urement (mass/volume)Ordered By: Walter Becker on 05-15-2023 Albumin [Mass/Vol] 2.9 g/dL 3.2-5.0 [facility] Serum or plasma albumin/glob ulin mass ratioOrdered By: Walter Becker on 05-15-2023 Albumin/Globulin [Mass ratio] 1.0 {ratio} 0.9-2.4 [facility] Serum or plasma calcium antoine urement (mass/volume)Ordered By: Walter Becker on 05-15-2023 Calcium [Mass/Vol] 8.8 mg/dL 8.5-10.1 [facility] Serum or plasma creatinine m easurement (mass/volume)Ordered By: Walter Becker on 05-15-2023 Creatinine [Mass/Vol] 0.98 mg/dL 0.70-1.30 [facility] Comment on above: The validity of the calculated GFR & GFRAA in patients over 70 years has not been determined. Clinical correlation is essential. Serum or plasma urea nitroge n measurement (mass/volume)Ordered By: Walter Becker on 05-15-2023 Urea nitrogen [Mass/Vol] 30 mg/dL 7-18 [facility] Squamous epithelial cells de tection in urine sediment by light microscopyOrdered By: Walter Becker on 05-15-2023 Epithelial cells.squamous LM Ql (Urine sed) 0 SEEN /hpf 0-5 [facility] Thin prep Papanicolaou smear with manual screeningOrdered By: Walter Becker on 05-15-2023 Thin prep Papanicolaou smear with manual screening 9 U/L 15-37 [facility] Thin prep Papanicolaou smear with manual screening 7 5-15 [facility] Urine blood detectionOrdered By: Walter Becker on 05-15-2023 RBC Ql (U) Negative Negative [facility] RBC Ql (U) 0 SEEN /hpf 0-5 [facility] Urine clarityOrdered By: Crystal Becker on 05-15-2023 Clarity (U) Clear Clear [facility] Urine color determinationOrd ered By: Walter Becker on 05-15-2023 Color (U) Yellow Yellow [facility] Urine glucose detectionOrder ed By: Walter Becker on 05-15-2023 Glucose Ql (U) Normal mg/dl Normal [facility] Urine leukocyte esterase det ection by dipstickOrdered By: Walter Becker on 05-15-2023 Leukocyte esterase Test strip Ql (U) Negative Negative [facility] Urine pHOrdered By: Walter floyd on 05-15-2023 pH (U) 5.0 [pH] 5.0 - 8.0 [facility] Urine sediment bacteria coun t by microscopy (number/high power field)Ordered By: Walter Becker on 05-15-2023 Bacteria LM.HPF (Urine sed) [#/Area] 0 /[HPF] None Seen [facility] Urine specific gravity measu rementOrdered By: Walter Becker on 05-15-2023 Specific gravity (U) [Rel density] 1.010 1.002-1.03 0 [facility] Urobilinogen Auto test strip Ql (U)Ordered By: Walter Becker on 05-15-2023 Urobilinogen Ql (U) Normal mg/dl Normal [facility] Basophil percentageOrdered B y: Walter Becker on 05-06-2023 Basophil percentage 135 mg/dL 74-106 [facility] Basophil percentage 5.9 g/dL 6.4-8.2 [facility] Basophil percentage 0.40 mg/dL 0.20-1.00 [facility] Basophil percentage 140 mmol/L 136-145 [facility] Basophil percentage 3.7 mmol/L 3.5-5.1 [facility] Basophil percentage 106 mmol/L 98-107 [facility] Basophils (Bld) [#/Vol] 9.4 10*3/uL 4.4-11.0 [facility] Bilirubin [Mass/Vol] 0.40 mg/dL 0.20-1.00 [facility] Comment on above: For patients on eltr ombopag therapy, use of Dimension [place] TBIL is not recommended. Chloride [Moles/Vol] 106 mmol/L 98-107 [facility] Glucose [Mass/Vol] 135 mg/dL 74-106 [facility] Comment on above: Fasting Glucose resu lt greater than or equal to 126 mg/dL suggests DIABETES MELLITUS per A.D.A. criteria. Potassium [Moles/Vol] 3.7 mmol/L 3.5-5.1 [facility] Protein [Mass/Vol] 5.9 g/dL 6.4-8.2 [facility] Sodium [Moles/Vol] 140 mmol/L 136-145 [facility] WBC (Bld) [#/Vol] 9.4 10*3/uL 4.4-11.0 [facility] Blood erythrocytes count (nu mber/volume)Ordered By: Walter Becker on 05-06-2023 RBC (Bld) [#/Vol] 4.49 10*6/uL 4.6-6.2 [facility] Blood hemoglobin measurement (mass/volume)Ordered By: Walter Becker on 05-06-2023 Hemoglobin (Bld) [Mass/Vol] 12.0 g/dL 13.0-16. 5 [facility] Blood platelet mean volumeOr dered By: Walter Becker on 05-06-2023 Platelet mean volume (Bld) [Entitic vol] 9.5 fL 6.2-12.0 [facility] Determination of erythrocyte mean corpuscular volume (MCV)Ordered By: Walter Becker on 05-06-2023 MCV (RBC) [Entitic vol] 85.7 fL 80-94 [facility] Hematocrit Auto (Bld) [Volum e fraction]Ordered By: Walter Becker on 05-06-2023 Hematocrit (Bld) [Volume fraction] 38.5 % 40-54 [facility] INR in Blood by Coagulation assayOrdered By: Walter Becker on 05-06-2023 INR Coag (Bld) [Relative time] 2.5 {INR} [facility] Laboratory - Chemistry and C hemistry - challengeOrdered By: Walter Becker on 05-06-2023 ALP [Catalytic activity/Vol] 93 U/L 45-117 [facility] ALT [Catalytic activity/Vol] 23 U/L 16-61 [facility] CO2 [Moles/Vol] 29.0 mmol/L 21.0-32.0 [facility] Globulin (S) [Mass/Vol] 2.9 g/dL 2.2-4.2 [facility] Urea nitrogen/Creatinine [Mass ratio] 25.8 mg/mg 10-20 [facility] Laboratory - CoagulationOrde red By: Walter Becker on 05-06-2023 PT Coag (PPP) [Time] 27.5 s 11.7-14.9 [facility] Laboratory - Hematology and Cell countsOrdered By: Walter Becker on 05-06-2023 Erythrocyte distribution width (RBC) [Entitic vol] 44.4 fL 35.1-43.9 [facility] Erythrocyte distribution width (RBC) [Ratio] 14.2 % 11.6-14.6 [facility] MCH (RBC) [Entitic mass] 26.7 pg 27.0-32.0 [facility] MCHC Auto (RBC) [Mass/Vol]Or dered By: Walter Becker on 05-06-2023 MCHC (RBC) [Mass/Vol] 31.2 g/dL 32-36 [facility] No Panel InformationOrdered By: Walter Becker on 05-06-2023 Estimated GFR (MDRD) Amer 102 mL/min >60 [facility] Comment on above: GFR Calc Estimated GFR (MDRD) Non-Af Amer 84 mL/min >60 [facility] Comment on above: Non- GFR Calc 26.7 pg 27.0-32.0 [facility] 14.2 % 11.6-14.6 [facility] 44.4 fl 35.1-43.9 [facility] 27.5 SECONDS 11.7-14.9 [facility] 84 mL/min >60 [facility] 102 mL/min >60 [facility] 25.8 RATIO 10- [facility] 2.9 g/dL 2.2-4.2 [facility] 93 U/L 45-117 [facility] 23 U/L 16-61 [facility] 29.0 mmol/L 21.0-32.0 [facility] Platelets bldOrdered By: Crystal Becker on 05-06-2023 Platelets (Bld) [#/Vol] 238 10*3/uL 150-450 [facility] Serum or plasma albumin antoine urement (mass/volume)Ordered By: Walter Becker on 05-06-2023 Albumin [Mass/Vol] 3.0 g/dL 3.2-5.0 [facility] Serum or plasma albumin/glob ulin mass ratioOrdered By: Walter Becker on 05-06-2023 Albumin/Globulin [Mass ratio] 1.0 {ratio} 0.9-2.4 [facility] Serum or plasma calcium antoine urement (mass/volume)Ordered By: Walter Becker on 05-06-2023 Calcium [Mass/Vol] 9.1 mg/dL 8.5-10.1 [facility] Serum or plasma creatinine m easurement (mass/volume)Ordered By: Walter Becker on 05-06-2023 Creatinine [Mass/Vol] 0.93 mg/dL 0.70-1.30 [facility] Comment on above: The validity of the calculated GFR & GFRAA in patients over 70 years has not been determined. Clinical correlation is essential. Serum or plasma urea nitroge n measurement (mass/volume)Ordered By: Walter Becker on 05-06-2023 Urea nitrogen [Mass/Vol] 24 mg/dL 7-18 [facility] Thin prep Papanicolaou smear with manual screeningOrdered By: Walter Becker on 05-06-2023 Thin prep Papanicolaou smear with manual screening 10 U/L 15-37 [facility] Thin prep Papanicolaou smear with manual screening 5 5-15 [facility] Laboratory - CoagulationOrde red By: Walter Becker on 04-29-2023 INR Coag (Bld) [Relative time] 2.8 {INR} [facility] Comment on above: Critical Value > 4.0 No Panel InformationOrdered By: Walter Becker on 04-29-2023 2.8 [facility] Whole blood prothrombin time Ordered By: Walter Becker on 04-29-2023 PT Coag (Bld) [Time] 29.6 s 11.7-14.9 [facility] Laboratory - CoagulationOrde red By: Walter Becker on 04-15-2023 INR Coag (Bld) [Relative time] 2.5 {INR} [facility] Comment on above: Critical Value > 4.0 No Panel InformationOrdered By: Walter Becker on 04-15-2023 2.5 [facility] Whole blood prothrombin time Ordered By: Walter Becker on 04-15-2023 PT Coag (Bld) [Time] 27.3 s 11.7-14.9 [facility] Basophil percentageOrdered B y: Walter Becker on 04-09-2023 Basophil percentage 115 mg/dL 74-106 [facility] Basophil percentage 5.8 g/dL 6.4-8.2 [facility] Basophil percentage 0.40 mg/dL 0.20-1.00 [facility] Basophil percentage 141 mmol/L 136-145 [facility] Basophil percentage 3.9 mmol/L 3.5-5.1 [facility] Basophil percentage 106 mmol/L 98-107 [facility] Basophils (Bld) [#/Vol] 10.2 10*3/uL 4.4-11.0 [facility] Bilirubin [Mass/Vol] 0.40 mg/dL 0.20-1.00 [facility] Comment on above: For patients on eltr ombopag therapy, use of Dimension [place] TBIL is not recommended. Chloride [Moles/Vol] 106 mmol/L 98-107 [facility] Glucose [Mass/Vol] 115 mg/dL 74-106 [facility] Comment on above: Fasting Glucose resu lt from 100 to 125 mg/dL suggests IMPAIRED HOMEOSTASIS per A.D.A. criteria. Potassium [Moles/Vol] 3.9 mmol/L 3.5-5.1 [facility] Protein [Mass/Vol] 5.8 g/dL 6.4-8.2 [facility] Sodium [Moles/Vol] 141 mmol/L 136-145 [facility] WBC (Bld) [#/Vol] 10.2 10*3/uL 4.4-11.0 [facility] Blood erythrocytes count (nu mber/volume)Ordered By: Walter Becker on 04-09-2023 RBC (Bld) [#/Vol] 4.16 10*6/uL 4.6-6.2 [facility] Blood hemoglobin measurement (mass/volume)Ordered By: Walter Becker on 04-09-2023 Hemoglobin (Bld) [Mass/Vol] 11.3 g/dL 13.0-16. 5 [facility] Blood platelet mean volumeOr dered By: Walter Becker on 04-09-2023 Platelet mean volume (Bld) [Entitic vol] 9.4 fL 6.2-12.0 [facility] Determination of erythrocyte mean corpuscular volume (MCV)Ordered By: Walter Becker on 04-09-2023 MCV (RBC) [Entitic vol] 86.5 fL 80-94 [facility] Hematocrit Auto (Bld) [Volum e fraction]Ordered By: Walter Becker on 04-09-2023 Hematocrit (Bld) [Volume fraction] 36.0 % 40-54 [facility] Laboratory - Chemistry and C hemistry - challengeOrdered By: Walter Becker on 04-09-2023 ALP [Catalytic activity/Vol] 105 U/L 45-117 [facility] ALT [Catalytic activity/Vol] 22 U/L 16-61 [facility] CO2 [Moles/Vol] 31.0 mmol/L 21.0-32.0 [facility] Globulin (S) [Mass/Vol] 2.9 g/dL 2.2-4.2 [facility] Urea nitrogen/Creatinine [Mass ratio] 29.9 mg/mg 10-20 [facility] Laboratory - Hematology and Cell countsOrdered By: Walter Becker on 04-09-2023 Erythrocyte distribution width (RBC) [Entitic vol] 46.8 fL 35.1-43.9 [facility] Erythrocyte distribution width (RBC) [Ratio] 14.6 % 11.6-14.6 [facility] MCH (RBC) [Entitic mass] 27.2 pg 27.0-32.0 [facility] MCHC Auto (RBC) [Mass/Vol]Or dered By: Walter Becker on 04-09-2023 MCHC (RBC) [Mass/Vol] 31.4 g/dL 32-36 [facility] No Panel InformationOrdered By: Walter Becker on 04-09-2023 Estimated GFR (MDRD) Amer 101 mL/min >60 [facility] Comment on above: GFR Calc Estimated GFR (MDRD) Non-Af Amer 84 mL/min >60 [facility] Comment on above: Non- GFR Calc 27.2 pg 27.0-32.0 [facility] 14.6 % 11.6-14.6 [facility] 46.8 fl 35.1-43.9 [facility] 84 mL/min >60 [facility] 101 mL/min >60 [facility] 29.9 RATIO 10-20 [facility] 2.9 g/dL 2.2-4.2 [facility] 105 U/L 45-117 [facility] 22 U/L 16-61 [facility] 31.0 mmol/L 21.0-32.0 [facility] Platelets bldOrdered By: Crystal Becker on 04-09-2023 Platelets (Bld) [#/Vol] 229 10*3/uL 150-450 [facility] Serum or plasma albumin antoine urement (mass/volume)Ordered By: Walter Becker on 04-09-2023 Albumin [Mass/Vol] 2.9 g/dL 3.2-5.0 [facility] Serum or plasma albumin/glob ulin mass ratioOrdered By: Walter Becker on 04-09-2023 Albumin/Globulin [Mass ratio] 1.0 {ratio} 0.9-2.4 [facility] Serum or plasma calcium antoine urement (mass/volume)Ordered By: Walter Becker on 04-09-2023 Calcium [Mass/Vol] 9.0 mg/dL 8.5-10.1 [facility] Serum or plasma creatinine m easurement (mass/volume)Ordered By: Walter Becker on 04-09-2023 Creatinine [Mass/Vol] 0.94 mg/dL 0.70-1.30 [facility] Comment on above: The validity of the calculated GFR & GFRAA in patients over 70 years has not been determined. Clinical correlation is essential. Serum or plasma urea nitroge n measurement (mass/volume)Ordered By: Walter Becker on 04-09-2023 Urea nitrogen [Mass/Vol] 28 mg/dL 7-18 [facility] Thin prep Papanicolaou smear with manual screeningOrdered By: Walter Becker on 04-09-2023 Thin prep Papanicolaou smear with manual screening 7 U/L 15-37 [facility] Thin prep Papanicolaou smear with manual screening 4 5-15 [facility] Laboratory - CoagulationOrde red By: Walter Becker on 04-08-2023 INR Coag (Bld) [Relative time] 2.4 {INR} [facility] Comment on above: Critical Value > 4.0 No Panel InformationOrdered By: Walter Becker on 04-08-2023 2.4 [facility] Whole blood prothrombin time Ordered By: Walter Becker on 04-08-2023 PT Coag (Bld) [Time] 25.9 s 11.7-14.9 [facility] Laboratory - CoagulationOrde red By: Walter Becker on 04-01-2023 INR Coag (Bld) [Relative time] 1.9 {INR} [facility] Comment on above: Critical Value > 4.0 No Panel InformationOrdered By: Walter Becker on 04-01-2023 1.9 [facility] Whole blood prothrombin time Ordered By: Walter Becker on 04-01-2023 PT Coag (Bld) [Time] 21.0 s 11.7-14.9 [facility] Laboratory - CoagulationOrde red By: Walter Becker on 03-25-2023 INR Coag (Bld) [Relative time] 1.9 {INR} [facility] Comment on above: Critical Value > 4.0 No Panel InformationOrdered By: Walter Becker on 03-25-2023 1.9 [facility] Whole blood prothrombin time Ordered By: Walter Becker on 03-25-2023 PT Coag (Bld) [Time] 21.1 s 11.7-14.9 [facility] INR in Blood by Coagulation assayOrdered By: Walter Becker on 03-11-2023 INR Coag (Bld) [Relative time] 2.4 {INR} [facility] Laboratory - CoagulationOrde red By: Walter Becker on 03-11-2023 PT Coag (PPP) [Time] 26.6 s 11.7-14.9 [facility] No Panel InformationOrdered By: Walter Becker on 03-11-2023 26.6 SECONDS 11.7-14.9 [facility] Whole blood hemoglobin A1c/t otal hemoglobin ratio (mass fraction)Ordered By: Walter Becker on 03-11-2023 HbA1c (Bld) [Mass fraction] 5.5 % 3.8-5.6 [facility] Comment on above: Normal < 5.7 % Predi abetic 5.7 - 6.4 % Diabetic >or= 6.5 % Please note range changes. Basophil percentageOrdered B y: Walter Becker on 03-04-2023 Basophil percentage 114 mg/dL 74-106 [facility] Basophil percentage 5.8 g/dL 6.4-8.2 [facility] Basophil percentage 0.30 mg/dL 0.20-1.00 [facility] Basophil percentage 139 mmol/L 136-145 [facility] Basophil percentage 4.0 mmol/L 3.5-5.1 [facility] Basophil percentage 106 mmol/L 98-107 [facility] Bilirubin [Mass/Vol] 0.30 mg/dL 0.20-1.00 [facility] Comment on above: For patients on eltr ombopag therapy, use of Dimension [place] TBIL is not recommended. Chloride [Moles/Vol] 106 mmol/L 98-107 [facility] Glucose [Mass/Vol] 114 mg/dL 74-106 [facility] Comment on above: Fasting Glucose resu lt from 100 to 125 mg/dL suggests IMPAIRED HOMEOSTASIS per A.D.A. criteria. Potassium [Moles/Vol] 4.0 mmol/L 3.5-5.1 [facility] Protein [Mass/Vol] 5.8 g/dL 6.4-8.2 [facility] Sodium [Moles/Vol] 139 mmol/L 136-145 [facility] Blood hemoglobin measurement (mass/volume)Ordered By: Walter Becker on 03-04-2023 Hemoglobin (Bld) [Mass/Vol] 10.6 g/dL 13.0-16. 5 [facility] Hematocrit Auto (Bld) [Volum e fraction]Ordered By: Walter Becker on 03-04-2023 Hematocrit (Bld) [Volume fraction] 35.7 % 40-54 [facility] INR in Blood by Coagulation assayOrdered By: Walter Becker on 03-04-2023 INR Coag (Bld) [Relative time] 2.3 {INR} [facility] Laboratory - Chemistry and C hemistry - challengeOrdered By: Walter Becker on 03-04-2023 ALP [Catalytic activity/Vol] 92 U/L - [facility] ALT [Catalytic activity/Vol] 25 U/L - [facility] CO2 [Moles/Vol] 28.0 mmol/L 21.0-32.0 [facility] Globulin (S) [Mass/Vol] 3.0 g/dL 2.2-4.2 [facility] Urea nitrogen/Creatinine [Mass ratio] 33.0 mg/mg 05-03 [facility] Laboratory - CoagulationOrde red By: Walter Becker on 03-04-2023 PT Coag (PPP) [Time] 25.8 s 11.7-14.9 [facility] No Panel InformationOrdered By: Walter Becker on 03-04-2023 Estimated GFR (MDRD) Amer 88 mL/min >60 [facility] Comment on above: GFR Calc Estimated GFR (MDRD) Non-Af Amer 72 mL/min >60 [facility] Comment on above: Non- GFR Calc 25.8 SECONDS 11.7-14.9 [facility] 72 mL/min >60 [facility] 88 mL/min >60 [facility] 33.0 RATIO - [facility] 3.0 g/dL 2.2-4.2 [facility] 92 U/L - [facility] 25 U/L - [facility] 28.0 mmol/L 21.0-32.0 [facility] Serum or plasma albumin antoine urement (mass/volume)Ordered By: Walter Becker on 03-04-2023 Albumin [Mass/Vol] 2.8 g/dL 3.2-5.0 [facility] Serum or plasma albumin/glob ulin mass ratioOrdered By: Walter Becker on 03-04-2023 Albumin/Globulin [Mass ratio] 0.9 {ratio} 0.9-2.4 [facility] Serum or plasma calcium antoine urement (mass/volume)Ordered By: Walter Becker on 03-04-2023 Calcium [Mass/Vol] 9.1 mg/dL 8.5-10.1 [facility] [facility] Serum or plasma creatinine m easurement (mass/volume)Ordered By: Walter Becker on 03-04-2023 Creatinine [Mass/Vol] 1.06 mg/dL 0.70-1.30 [facility] Comment on above: The validity of the calculated GFR & GFRAA in patients over 70 years has not been determined. Clinical correlation is essential. Serum or plasma urea nitroge n measurement (mass/volume)Ordered By: Walter Becker on 03-04-2023 Urea nitrogen [Mass/Vol] 35 mg/dL 7-18 [facility] Thin prep Papanicolaou smear with manual screeningOrdered By: Walter Becker on 03-04-2023 Thin prep Papanicolaou smear with manual screening 12 U/L 15-37 [facility] Thin prep Papanicolaou smear with manual screening 5 5-15 [facility] Laboratory - CoagulationOrde red By: Walter Becker on 03-01-2023 INR Coag (Bld) [Relative time] 2.2 {INR} [facility] Comment on above: Critical Value > 4.0 No Panel InformationOrdered By: Walter Becker on 03-01-2023 2.2 [facility] Whole blood prothrombin time Ordered By: Walter Becker on 03-01-2023 PT Coag (Bld) [Time] 24.4 s 11.7-14.9 [facility] Blood hemoglobin measurement (mass/volume)Ordered By: Walter Becker on 02-25-2023 Hemoglobin (Bld) [Mass/Vol] 11.0 g/dL 13.0-16. 5 [facility] Hematocrit Auto (Bld) [Volum e fraction]Ordered By: Walter Becker on 02-25-2023 Hematocrit (Bld) [Volume fraction] 36.8 % 40-54 [facility] INR in Blood by Coagulation assayOrdered By: Walter Becker on 02-25-2023 INR Coag (Bld) [Relative time] 2.6 {INR} [facility] Laboratory - CoagulationOrde red By: Walter Becker on 02-25-2023 PT Coag (PPP) [Time] 28.0 s 11.7-14.9 [facility] No Panel InformationOrdered By: Walter Becker on 02-25-2023 28.0 SECONDS 11.7-14.9 [facility] Laboratory - CoagulationOrde red By: Walter Becker on 02-22-2023 INR Coag (Bld) [Relative time] 2.6 {INR} [facility] Comment on above: Critical Value > 4.0 No Panel InformationOrdered By: Walter Becker on 02-22-2023 2.6 [facility] Whole blood prothrombin time Ordered By: Walter Becker on 02-22-2023 PT Coag (Bld) [Time] 28.4 s 11.7-14.9 [facility] No Panel InformationOrdered By: Walter Becker on 02-20-2023 2.9 [facility] Whole blood prothrombin time Ordered By: Walter Becker on 02-20-2023 PT Coag (Bld) [Time] 30.7 s 11.7-14.9 [facility] Blood hemoglobin measurement (mass/volume)Ordered By: Walter Becker on 02-18-2023 Hemoglobin (Bld) [Mass/Vol] 8.8 g/dL 13.0-16. 5 [facility] Hematocrit Auto (Bld) [Volum e fraction]Ordered By: Walter Becker on 02-18-2023 Hematocrit (Bld) [Volume fraction] 28.2 % 40-54 [facility] INR in Blood by Coagulation assayOrdered By: Walter Becker on 02-18-2023 INR Coag (Bld) [Relative time] 2.8 {INR} [facility] No Panel InformationOrdered By: Walter Becker on 02-18-2023 29.5 SECONDS 11.7-14.9 [facility] No Panel InformationOrdered By: Walter Becker on 02-14-2023 2.2 [facility] Whole blood prothrombin time Ordered By: Walter Becker on 02-14-2023 PT Coag (Bld) [Time] 24.3 s 11.7-14.9 [facility] Absolute lymphocyte countOrd ered By: Gabriel Giraldo on 02-13-2023 Lymphocytes Auto (Unsp spec) [#/Vol] 0.84 10*3/uL 0.83-4.51 [facility] Basophil percentageOrdered B y: Gabriel Giraldo on 02-13-2023 Basophils (Bld) [#/Vol] 5.4 10*3/uL 4.4-11.0 [facility] Basophils (Bld) [#/Vol] 3.6 10*3/uL 2.0-7.7 [facility] Basophils/100 WBC (Bld) 67.5 % 47-70 [facility] Basophils/100 WBC (Bld) 4.1 % 0-5 [facility] Basophils/100 WBC (Bld) 0.4 % 0-1 [facility] Blood erythrocytes count (nu mber/volume)Ordered By: Gabriel Giraldo on 02-13-2023 RBC (Bld) [#/Vol] 2.76 10*6/uL 4.6-6.2 [facility] Blood hemoglobin measurement (mass/volume)Ordered By: Gabriel Giraldo on 02-13-2023 Hemoglobin (Bld) [Mass/Vol] 7.5 g/dL 13.0-16. 5 [facility] Blood lymphocytes/100 leukoc ytesOrdered By: Gabriel Giraldo on 02-13-2023 Lymphocytes/100 WBC (Bld) 15.7 % 19-41 [facility] Blood monocytes/100 leukocyt esOrdered By: Gabriel Giraldo on 02-13-2023 Monocytes/100 WBC (Bld) 11.2 % 0-10 [facility] Blood platelet mean volumeOr dered By: Gabriel Giraldo on 02-13-2023 Platelet mean volume (Bld) [Entitic vol] 9.2 fL 6.2-12.0 [facility] COVID-19 virus antigen assay Ordered By: Gabriel Giraldo on 02-13-2023 SARS-CoV-2 (COVID-19) Ag IA.rapid Ql (Resp) [facility] SARS-CoV-2 (COVID-19) Ag IA.rapid Ql (Resp) [facility] Determination of erythrocyte mean corpuscular volume (MCV)Ordered By: Gabriel Giraldo on 02-13-2023 MCV (RBC) [Entitic vol] 88.4 fL 80-94 [facility] Glucose Glucometer (BldC) [M ass/Vol]Ordered By: Gabriel Giraldo on 02-13-2023 Glucose [Mass/Vol] 146 mg/dL 74-106 [facility] Hematocrit Auto (Bld) [Volum e fraction]Ordered By: Gabriel Giraldo on 02-13-2023 Hematocrit (Bld) [Volume fraction] 24.4 % 40-54 [facility] MCHC Auto (RBC) [Mass/Vol]Or dered By: Gabriel Giraldo on 02-13-2023 MCHC (RBC) [Mass/Vol] 30.7 g/dL 32-36 [facility] No Panel InformationOrdered By: Gabriel Giraldo on 02-13-2023 27.2 pg 27.0-32.0 [facility] 16.6 % 11.6-14.6 [facility] 54.5 fl 35.1-43.9 [facility] 1.100 % 0.0-0.9 [facility] 0.9 % 0-5 [facility] Platelets bldOrdered By: Elis Giraldo on 02-13-2023 Platelets (Bld) [#/Vol] 194 10*3/uL 150-450 [facility] INR in Blood by Coagulation assayOrdered By: Gabriel Giraldo on 02-12-2023 INR Coag (Bld) [Relative time] 1.6 {INR} [facility] No Panel InformationOrdered By: Smith Leija on 02-12-2023 No growth in 5 days. [facility] No growth in 5 days. [facility] No Panel InformationOrdered By: Gabriel Giraldo on 02-12-2023 19.3 SECONDS 11.7-14.9 [facility] Basophil percentageOrdered B y: Dandy Sauer on 02-11-2023 Basophil percentage 2.2 mmol/L 0.4-2.0 [facility] Basophil percentage 2.8 mmol/L 0.4-2.0 [facility] Basophil percentageOrdered B y: Walter Becker on 02-11-2023 Basophil percentage 168 mg/dL 74-106 [facility] Basophil percentage 135 mmol/L 136-145 [facility] Basophil percentage 3.7 mmol/L 3.5-5.1 [facility] Basophil percentage 103 mmol/L 98-107 [facility] Basophils (Bld) [#/Vol] 10.2 10*3/uL 4.4-11.0 [facility] Blood erythrocytes count (nu mber/volume)Ordered By: Walter Becker on 02-11-2023 RBC (Bld) [#/Vol] 3.16 10*6/uL 4.6-6.2 [facility] Blood hemoglobin measurement (mass/volume)Ordered By: Walter Becker on 02-11-2023 Hemoglobin (Bld) [Mass/Vol] 8.7 g/dL 13.0-16. 5 [facility] Blood platelet mean volumeOr dered By: Walter Becker on 02-11-2023 Platelet mean volume (Bld) [Entitic vol] 9.3 fL 6.2-12.0 [facility] Determination of erythrocyte mean corpuscular volume (MCV)Ordered By: Walter Becker on 02-11-2023 MCV (RBC) [Entitic vol] 87.0 fL 80-94 [facility] Hematocrit Auto (Bld) [Volum e fraction]Ordered By: Walter Becker on 02-11-2023 Hematocrit (Bld) [Volume fraction] 27.5 % 40-54 [facility] INR in Blood by Coagulation assayOrdered By: Walter Becker on 02-11-2023 INR Coag (Bld) [Relative time] 1.5 {INR} [facility] MCHC Auto (RBC) [Mass/Vol]Or dered By: Walter Becker on 02-11-2023 MCHC (RBC) [Mass/Vol] 31.6 g/dL 32-36 [facility] No Panel InformationOrdered By: Walter Becker on 02-11-2023 27.5 pg 27.0-32.0 [facility] 17.3 % 11.6-14.6 [facility] 55.7 fl 35.1-43.9 [facility] 18.2 SECONDS 11.7-14.9 [facility] 67 mL/min >60 [facility] 81 mL/min >60 [facility] 21.1 RATIO 10-20 [facility] 27.0 mmol/L 21.0-32.0 [facility] Platelets bldOrdered By: Crystal Becker on 02-11-2023 Platelets (Bld) [#/Vol] 200 10*3/uL 150-450 [facility] Serum or plasma calcium antoine urement (mass/volume)Ordered By: Walter Becker on 02-11-2023 Calcium [Mass/Vol] 8.7 mg/dL 8.5-10.1 [facility] Serum or plasma creatinine m easurement (mass/volume)Ordered By: Walter Becker on 02-11-2023 Creatinine [Mass/Vol] 1.14 mg/dL 0.70-1.30 [facility] Serum or plasma urea nitroge n measurement (mass/volume)Ordered By: Walter Becker on 02-11-2023 Urea nitrogen [Mass/Vol] 24 mg/dL 7-18 [facility] Thin prep Papanicolaou smear with manual screeningOrdered By: Walter Becker on 02-11-2023 Thin prep Papanicolaou smear with manual screening 5 5-15 [facility] Absolute lymphocyte countOrd ered By: Geremias Carey on 02-10-2023 Lymphocytes Auto (Unsp spec) [#/Vol] 0.46 10*3/uL 0.83-4.51 [facility] Bacteria identified Cx Nom ( U)Ordered By: Geremias Carey on 02-10-2023 Culture, urine Klebsiella pneumonia e sp pneum [facility] Culture, urine Klebsiella pneumonia e sp pneum [facility] Basophil percentageOrdered B y: Geremias Carey on 02-10-2023 Basophil percentage 1.9 mmol/L 0.4-2.0 [facility] Basophil percentage 25-50 SEEN /hpf 0-5 [facility] Basophil percentage 158 mg/dL 74-106 [facility] Basophil percentage 5.6 g/dL 6.4-8.2 [facility] Basophil percentage 0.90 mg/dL 0.20-1.00 [facility] Basophil percentage 136 mmol/L 136-145 [facility] Basophil percentage 3.7 mmol/L 3.5-5.1 [facility] Basophil percentage 103 mmol/L 98-107 [facility] Basophils (Bld) [#/Vol] 10.8 10*3/uL 4.4-11.0 [facility] Basophils (Bld) [#/Vol] 9.2 10*3/uL 2.0-7.7 [facility] Basophils/100 WBC (Bld) 84.8 % 47-70 [facility] Basophils/100 WBC (Bld) 0.2 % 0-5 [facility] Basophils/100 WBC (Bld) 0.1 % 0-1 [facility] Bilirubin Test strip Ql (U)O rdered By: Geremias Carey on 02-10-2023 Bilirubin Ql (U) Negative Negative [facility] Blood erythrocytes count (nu mber/volume)Ordered By: Geremias Carey on 02-10-2023 RBC (Bld) [#/Vol] 3.20 10*6/uL 4.6-6.2 [facility] Blood hemoglobin measurement (mass/volume)Ordered By: Geremias Carey on 02-10-2023 Hemoglobin (Bld) [Mass/Vol] 8.8 g/dL 13.0-16. 5 [facility] Blood lymphocytes/100 leukoc ytesOrdered By: Geremias Carey on 02-10-2023 Lymphocytes/100 WBC (Bld) 4.3 % 19-41 [facility] Blood manual differential co mment interpretation (narrative result)Ordered By: Geremias Carey on 02-10-2023 Manual differential comment Ori (Bld) [Interp] SCANNED [facility] Blood monocytes/100 leukocyt esOrdered By: Geremias Carey on 02-10-2023 Monocytes/100 WBC (Bld) 9.8 % 0-10 [facility] Blood platelet mean volumeOr dered By: Geremias Carey on 02-10-2023 Platelet mean volume (Bld) [Entitic vol] 9.3 fL 6.2-12.0 [facility] Determination of erythrocyte mean corpuscular volume (MCV)Ordered By: Geremias Carey on 02-10-2023 MCV (RBC) [Entitic vol] 87.8 fL 80-94 [facility] Direct bilirubinOrdered By: Geremias Carey on 02-10-2023 Bilirubin.direct [Mass/Vol] 0.43 mg/dL 0.00-0.3 0 [facility] Hematocrit Auto (Bld) [Volum e fraction]Ordered By: Geremias Carey on 02-10-2023 Hematocrit (Bld) [Volume fraction] 28.1 % 40-54 [facility] INR in Blood by Coagulation assayOrdered By: Geremias Carey on 02-10-2023 INR Coag (Bld) [Relative time] 1.4 {INR} [facility] Influenza virus A and B and SARS-CoV-2 (COVID-19) Ag panel - Upper respiratory specimOrdered By: Geremias Carey on 02-10-2023 SARS-CoV-2 (COVID-19) RNA ANGELY+probe Ql (Resp) [facility] SARS-CoV-2 (COVID-19) RNA ANGELY+probe Ql (Resp) [facility] Ketones Test strip Ql (U)Ord ered By: Geremias Carey on 02-10-2023 Ketones Ql (U) 5 mg/dl Negative [facility] MCHC Auto (RBC) [Mass/Vol]Or dered By: Geremias Carey on 02-10-2023 MCHC (RBC) [Mass/Vol] 31.3 g/dL 32-36 [facility] Mucus LM Ql (Urine sed)Order ed By: Geremias Carey on 02-10-2023 Mucus Ql (Urine sed) 0 SEEN /hpf [facility] Nitrite Test strip Ql (U)Ord ered By: Geremias Carey on 02-10-2023 Nitrite Ql (U) Negative Negative [facility] No Panel InformationOrdered By: Geremias Carey on 02-10-2023 GNR lactose lie detector operator [facility] GNR lactose lie detector operator [facility] 27.5 pg 27.0-32.0 [facility] 17.3 % 11.6-14.6 [facility] 55.2 fl 35.1-43.9 [facility] 0.800 % 0.0-0.9 [facility] 0 % 0-5 [facility] 17.5 SECONDS 11.7-14.9 [facility] 42.1 Seconds 24.1-36.2 [facility] 70 mL/min >60 [facility] 85 mL/min >60 [facility] 66.18 ml/min [facility] 23.9 RATIO 10-20 [facility] 3.3 g/dL 2.2-4.2 [facility] 100 U/L 45-117 [facility] 18 U/L 16-61 [facility] 24.0 mmol/L 21.0-32.0 [facility] Platelets bldOrdered By: Luis Enrique Carey on 02-10-2023 Platelets (Bld) [#/Vol] 189 10*3/uL 150-450 [facility] Protein Test strip Ql (U)Ord ered By: Geremias Carey on 02-10-2023 Protein Ql (U) 100 mg/dl Negative [facility] Serum or plasma albumin antoine urement (mass/volume)Ordered By: Geremias Carey on 02-10-2023 Albumin [Mass/Vol] 2.3 g/dL 3.2-5.0 [facility] Serum or plasma calcium antoine urement (mass/volume)Ordered By: Geremias Carey on 02-10-2023 Calcium [Mass/Vol] 8.3 mg/dL 8.5-10.1 [facility] Serum or plasma creatinine m easurement (mass/volume)Ordered By: Geremias Carey on 02-10-2023 Creatinine [Mass/Vol] 1.09 mg/dL 0.70-1.30 [facility] Serum or plasma urea nitroge n measurement (mass/volume)Ordered By: Geremias Carey on 02-10-2023 Urea nitrogen [Mass/Vol] 26 mg/dL 7-18 [facility] Serum procalcitonin measurem entOrdered By: Geremias Carey on 02-10-2023 Procalcitonin [Mass/Vol] 1.43 ng/mL 0.00-0.09 [facility] Squamous epithelial cells de tection in urine sediment by light microscopyOrdered By: Geremias Carey on 02-10-2023 Epithelial cells.squamous LM Ql (Urine sed) 0 SEEN /hpf 0-5 [facility] Thin prep Papanicolaou smear with manual screeningOrdered By: Geremias Carey on 02-10-2023 Thin prep Papanicolaou smear with manual screening 10 U/L 15-37 [facility] Thin prep Papanicolaou smear with manual screening 9 5-15 [facility] Urine blood detectionOrdered By: Geremias Carey on 02-10-2023 RBC Ql (U) 250 /ul Negative [facility] RBC Ql (U) 25-50 SEEN /hpf 0-5 [facility] Urine clarityOrdered By: Luis Enrique Carey on 02-10-2023 Clarity (U) Sl. Cloudy Clear [facility] Urine color determinationOrd ered By: Geremias Carey on 02-10-2023 Color (U) Yellow Yellow [facility] Urine glucose detectionOrder ed By: Geremias Carey on 02-10-2023 Glucose Ql (U) Normal mg/dl Normal [facility] Urine leukocyte esterase det ection by dipstickOrdered By: Geremias Carey on 02-10-2023 Leukocyte esterase Test strip Ql (U) 500 /ul Negative [facility] Urine pHOrdered By: Geremias torrez on 02-10-2023 pH (U) 5.0 [pH] 5.0 - 8.0 [facility] Urine sediment bacteria coun t by microscopy (number/high power field)Ordered By: Geremias Carey on 02-10-2023 Bacteria LM.HPF (Urine sed) [#/Area] 4 /[HPF] None Seen [facility] Urine specific gravity measu rementOrdered By: Geremias Carey on 02-10-2023 Specific gravity (U) [Rel density] 1.015 1.002-1.03 0 [facility] Urobilinogen Auto test strip Ql (U)Ordered By: Geremias Carey on 02-10-2023 Urobilinogen Ql (U) Normal mg/dl Normal [facility] Blood hemoglobin measurement (mass/volume)Ordered By: Walter Becker on 02-07-2023 Hemoglobin (Bld) [Mass/Vol] 8.8 g/dL 13.0-16. 5 [facility] Hematocrit Auto (Bld) [Volum e fraction]Ordered By: Walter Becker on 02-07-2023 Hematocrit (Bld) [Volume fraction] 29.0 % 40-54 [facility] COVID-19 virus antigen assay Ordered By: Caryl Mcdermott on 02-05-2023 SARS-CoV-2 (COVID-19) Ag IA.rapid Ql (Resp) [facility] SARS-CoV-2 (COVID-19) Ag IA.rapid Ql (Resp) [facility] Glucose Glucometer (BldC) [M ass/Vol]Ordered By: Caryl Mcdermott on 02-05-2023 Glucose [Mass/Vol] 163 mg/dL 74-106 [facility] Absolute lymphocyte countOrd ered By: Yisel Rendon on 02-04-2023 Lymphocytes Auto (Unsp spec) [#/Vol] 1.39 10*3/uL 0.83-4.51 [facility] Basophil percentageOrdered B y: Yisel Rendon on 02-04-2023 Basophil percentage 151 mg/dL 74-106 [facility] Basophil percentage 141 mmol/L 136-145 [facility] Basophil percentage 3.5 mmol/L 3.5-5.1 [facility] Basophil percentage 110 mmol/L 98-107 [facility] Basophils (Bld) [#/Vol] 8.1 10*3/uL 4.4-11.0 [facility] Basophils (Bld) [#/Vol] 5.8 10*3/uL 2.0-7.7 [facility] Basophils/100 WBC (Bld) 71.5 % 47-70 [facility] Basophils/100 WBC (Bld) 2.6 % 0-5 [facility] Basophils/100 WBC (Bld) 0.1 % 0-1 [facility] Blood erythrocytes count (nu mber/volume)Ordered By: Yisel Rendon on 02-04-2023 RBC (Bld) [#/Vol] 3.23 10*6/uL 4.6-6.2 [facility] Blood hemoglobin measurement (mass/volume)Ordered By: Yisel Rendon on 02-04-2023 Hemoglobin (Bld) [Mass/Vol] 8.8 g/dL 13.0-16. 5 [facility] Blood lymphocytes/100 leukoc ytesOrdered By: Yisel Rendon on 02-04-2023 Lymphocytes/100 WBC (Bld) 17.2 % 19-41 [facility] Blood monocytes/100 leukocyt esOrdered By: Yisel Rendon on 02-04-2023 Monocytes/100 WBC (Bld) 6.3 % 0-10 [facility] Blood platelet mean volumeOr dered By: Yisel Rendon on 02-04-2023 Platelet mean volume (Bld) [Entitic vol] 8.8 fL 6.2-12.0 [facility] Determination of erythrocyte mean corpuscular volume (MCV)Ordered By: Yisel Rendon on 02-04-2023 MCV (RBC) [Entitic vol] 89.5 fL 80-94 [facility] Hematocrit Auto (Bld) [Volum e fraction]Ordered By: Yisel Rendon on 02-04-2023 Hematocrit (Bld) [Volume fraction] 28.9 % 40-54 [facility] MCHC Auto (RBC) [Mass/Vol]Or dered By: Yisel Rendon on 02-04-2023 MCHC (RBC) [Mass/Vol] 30.4 g/dL 32-36 [facility] No Panel InformationOrdered By: Yisel Rendon on 02-04-2023 27.2 pg 27.0-32.0 [facility] 17.8 % 11.6-14.6 [facility] 56.6 fl 35.1-43.9 [facility] 2.300 % 0.0-0.9 [facility] 0 % 0-5 [facility] 67 mL/min >60 [facility] 81 mL/min >60 [facility] 63.83 ml/min [facility] 10.6 RATIO 10-20 [facility] 25.0 mmol/L 21.0-32.0 [facility] Platelets bldOrdered By: José Luis Rendon on 02-04-2023 Platelets (Bld) [#/Vol] 341 10*3/uL 150-450 [facility] Serum or plasma calcium antoine urement (mass/volume)Ordered By: Yisel Rendon on 02-04-2023 Calcium [Mass/Vol] 8.4 mg/dL 8.5-10.1 [facility] Serum or plasma creatinine m easurement (mass/volume)Ordered By: Yisel Rendon on 02-04-2023 Creatinine [Mass/Vol] 1.13 mg/dL 0.70-1.30 [facility] Serum or plasma urea nitroge n measurement (mass/volume)Ordered By: Yisel Rendon on 02-04-2023 Urea nitrogen [Mass/Vol] 12 mg/dL 7-18 [facility] Thin prep Papanicolaou smear with manual screeningOrdered By: Yisel Rendon on 02-04-2023 Thin prep Papanicolaou smear with manual screening 6 5-15 [facility] Blood band neutrophil count as percentage of total leukocytesOrdered By: Yisel Rendon on 01-31-2023 Band form neutrophils/100 WBC (Bld) 3 % 0-5 [facility] Blood eosinophils/100 leukoc ytesOrdered By: Yisel Rendon on 01-31-2023 Eosinophils/100 WBC (Bld) 2 % 0-5 [facility] Blood lymphocytes/100 leukoc ytesOrdered By: Yisel Rendon on 01-31-2023 Lymphocytes/100 WBC (Bld) 22 % 19-41 [facility] Blood metamyelocytes/100 yolis kocytesOrdered By: Yisel Rendon on 01-31-2023 Metamyelocytes/100 WBC (Bld) 1 % 0-1 [facility] Blood monocytes/100 leukocyt esOrdered By: Yisel Rendon on 01-31-2023 Monocytes/100 WBC (Bld) 5 % 0-10 [facility] Blood platelet adequacy dete ction by light microscopyOrdered By: Yisel Rendon on 01-31-2023 Platelets LM Ql (Bld) ADEQUATE ADEQ [facility] Blood polychromasia detectio n by light microscopyOrdered By: Yisel Rendon on 01-31-2023 Polychromasia LM Ql (Bld) RARE [facility] Blood segmented neutrophils/ 100 leukocytesOrdered By: Yisel Rendon on 07-20-2023 Segmented neutrophils/100 WBC (Bld) 64 % 47-70 [facility] No Panel InformationOrdered By: Yisel Rendon on 01-31-2023 3 % 0-0 [facility] Review by pathologistOrdered By: Yisel Rendon on 01-31-2023 Pathologist review Ori (Unsp spec) [Interp] Reviewed [facility] Total cell countOrdered By: Yisel Rendon on 01-31-2023 Cells counted Molgen (Bld/Tiss) [#] 100 MANUAL DIFF [facility] Basophil percentageOrdered B y: Yisel Rendon on 01-30-2023 Basophil percentage 148 U/L 87-241 [facility] Blood manual differential co mment interpretation (narrative result)Ordered By: Yisel Rendon on 01-30-2023 Manual differential comment Ori (Bld) [Interp] SCANNED [facility] Hemoglobin in reticulocytes (mass per reticulocyte)Ordered By: Yisel Rendon on 01-30-2023 Hemoglobin (Reticulocytes) [Entitic mass] 22.8 pg 30-35 [facility] Hypochromatic red blood cell detectionOrdered By: Yisel Rendon on 01-30-2023 Hypochromia Ql (Bld) 1+ [facility] Iron measurement (mass/mass) Ordered By: Yisel Rendon on 01-30-2023 Iron (Unsp spec) [Mass/Mass] 28 ug/dL 65-175 [facility] No Panel InformationOrdered By: Yisel Rendon on 01-30-2023 RARE % [facility] 3.53 % 0.5-1.5 [facility] 40.30 % 3.00-15.90 [facility] 635 pg/mL 211-911 [facility] 166 ug/dL 250-450 [facility] Serum or plasma ferritin hank surement (mass/volume)Ordered By: Yisel Rendon on 01-30-2023 Ferritin [Mass/Vol] 138 ng/mL 26-388 [facility] Serum or plasma folate measu rement (mass/volume)Ordered By: Yisel Rendon on 01-30-2023 Folate [Mass/Vol] 4.60 ng/mL 3.1-55.4 [facility] Serum or plasma iron saturat ion measurement (mass fraction)Ordered By: Yisel Rendon on 01-30-2023 Iron saturation [Mass fraction] 16.9 % 15.0-55.0 [facility] No Panel InformationOrdered By: Yisel Rendon on 01-29-2023 RARE [facility] Vancomycin troughOrdered By: Karen Aly on 01-29-2023 Vancomycin trough [Mass/Vol] 7.8 ug/mL 5.0-15.0 [facility] Basophil percentageOrdered B y: Karen Jermain on 01-28-2023 Basophil percentage 5.8 g/dL 6.4-8.2 [facility] Basophil percentage 0.70 mg/dL 0.20-1.00 [facility] No Panel InformationOrdered By: Karen Jermain on 01-28-2023 3.8 g/dL 2.2-4.2 [facility] 81 U/L 45-117 [facility] 85 U/L 16-61 [facility] Serum or plasma albumin antoine urement (mass/volume)Ordered By: Karen Aly on 01-28-2023 Albumin [Mass/Vol] 2.0 g/dL 3.2-5.0 [facility] Serum or plasma albumin/glob ulin mass ratioOrdered By: Karen Jermain on 01-28-2023 Albumin/Globulin [Mass ratio] 0.5 {ratio} 0.9-2.4 [facility] Thin prep Papanicolaou smear with manual screeningOrdered By: Karen Aly on 01-28-2023 Thin prep Papanicolaou smear with manual screening 49 U/L 15-37 [facility] Absolute lymphocyte countOrd ered By: Syed Allen on 01-27-2023 Lymphocytes Auto (Unsp spec) [#/Vol] 1.35 10*3/uL 0.83-4.51 [facility] Basophil percentageOrdered B y: Karen Jermain on 01-27-2023 Basophil percentage 2.6 mg/dL 2.5-4.9 [facility] Basophil percentageOrdered B y: Syed Allen on 01-27-2023 Basophils/100 WBC (Bld) 0.1 % 0-1 [facility] Bilirubin [Mass/Vol] 0.50 mg/dL 0.20-1.00 [facility] Comment on above: For patients on eltr ombopag therapy, use of Dimension [place] TBIL is not recommended. Chloride [Moles/Vol] 111 mmol/L 98-107 [facility] Eosinophils/100 WBC (Bld) 2.9 % 0-5 [facility] Glucose [Mass/Vol] 215 mg/dL 74-106 [facility] Comment on above: Glucose result great er than or equal to 200 mg/dLsuggests DIABETES MELLITUS per A.D.A. criteria. Neutrophils (Bld) [#/Vol] 8.0 10*3/uL 2.0-7.7 [facility] Neutrophils/100 WBC (Bld) 73.8 % 47-70 [facility] Potassium [Moles/Vol] 4.0 mmol/L 3.5-5.1 [facility] Protein [Mass/Vol] 5.3 g/dL 6.4-8.2 [facility] Sodium [Moles/Vol] 140 mmol/L 136-145 [facility] WBC (Bld) [#/Vol] 10.9 10*3/uL 4.4-11.0 [facility] Blood erythrocytes count (nu mber/volume)Ordered By: Syed Allen on 01-27-2023 RBC (Bld) [#/Vol] 2.91 10*6/uL 4.6-6.2 [facility] Blood hemoglobin measurement (mass/volume)Ordered By: Syed Allen on 01-27-2023 Hemoglobin (Bld) [Mass/Vol] 8.2 g/dL 13.0-16. 5 [facility] Blood lymphocytes/100 leukoc ytesOrdered By: Syed Allen on 01-27-2023 Lymphocytes/100 WBC (Bld) 12.4 % 19-41 [facility] Blood monocytes/100 leukocyt esOrdered By: Syed Allen on 01-27-2023 Monocytes/100 WBC (Bld) 8.2 % 0-10 [facility] Blood platelet mean volumeOr dered By: Syed Allen on 01-27-2023 Platelet mean volume (Bld) [Entitic vol] 9.9 fL 6.2-12.0 [facility] Determination of erythrocyte mean corpuscular volume (MCV)Ordered By: Syed Allen on 01-27-2023 MCV (RBC) [Entitic vol] 88.0 fL 80-94 [facility] Hematocrit Auto (Bld) [Volum e fraction]Ordered By: Syed Allen on 01-27-2023 Hematocrit (Bld) [Volume fraction] 25.6 % 40-54 [facility] INR in Blood by Coagulation assayOrdered By: Syed Allen on 01-27-2023 INR Coag (Bld) [Relative time] 1.6 {INR} [facility] Laboratory - Chemistry and C hemistry - challengeOrdered By: Syed Allen on 01-27-2023 ALP [Catalytic activity/Vol] 78 U/L 45-117 [facility] ALT [Catalytic activity/Vol] 81 U/L 16-61 [facility] CO2 [Moles/Vol] 25.0 mmol/L 21.0-32.0 [facility] Globulin (S) [Mass/Vol] 3.5 g/dL 2.2-4.2 [facility] Lipase [Catalytic activity/Vol] 233 U/L 13-75 [facility] Comment on above: Please note:LIPASE r evised reference range effective 22. New Lipase methodology. Expected to produce lower values than the previous assay method. NEW Reference Range: 13 - 75 U/L Urea nitrogen/Creatinine [Mass ratio] 20.4 mg/mg 10-20 [facility] - CoagulationOrde red By: Syed Allen on 01-27-2023 PT Coag (PPP) [Time] 19.4 s 11.7-14.9 [facility] Laboratory - Hematology and Cell countsOrdered By: Syed Allen on 01-27-2023 Erythrocyte distribution width (RBC) [Entitic vol] 49.3 fL 35.1-43.9 [facility] Erythrocyte distribution width (RBC) [Ratio] 15.5 % 11.6-14.6 [facility] Immature granulocytes/100 WBC (Bld) 2.600 % 0.0-0.9 [facility] Comment on above: IG% - Immature Granu locytes (promyelocytes, myelocytes and metamyelocytes) > 1% indicates that a LEFT SHIFT is Present. MCH (RBC) [Entitic mass] 28.2 pg 27.0-32.0 [facility] Nucleated RBC/100 WBC (Bld) [Ratio] 0.2 % 0-5 [facility] MCHC Auto (RBC) [Mass/Vol]Or dered By: Syed Allen on 01-27-2023 MCHC (RBC) [Mass/Vol] 32.0 g/dL 32-36 [facility] No Panel InformationOrdered By: Karen Jermain on 01-27-2023 Negative Negative [facility] 1.7 mg/dL 1.6-2.6 [facility] No Panel InformationOrdered By: Syed Allen on 01-27-2023 Estimated Creatinine Clearance Calc 50.80 ml/min [facility] Estimated GFR (MDRD) Amer 63 mL/min >60 [facility] Comment on above: GFR Calc Estimated GFR (MDRD) Non-Af Amer 52 mL/min >60 [facility] Comment on above: Non- GFR Calc 19.4 SECONDS 11.7-14.9 [facility] 233 U/L 13-75 [facility] Platelets bldOrdered By: Glenroy Allen on 01-27-2023 Platelets (Bld) [#/Vol] 259 10*3/uL 150-450 [facility] Serum or plasma albumin antoine urement (mass/volume)Ordered By: Syed Allen on 01-27-2023 Albumin [Mass/Vol] 1.8 g/dL 3.2-5.0 [facility] Serum or plasma albumin/glob ulin mass ratioOrdered By: Syed Allen on 01-27-2023 Albumin/Globulin [Mass ratio] 0.5 {ratio} 0.9-2.4 [facility] Serum or plasma calcium antoine urement (mass/volume)Ordered By: Syed Allen on 01-27-2023 Calcium [Mass/Vol] 8.3 mg/dL 8.5-10.1 [facility] Serum or plasma creatinine m easurement (mass/volume)Ordered By: Syed Allen on 01-27-2023 Creatinine [Mass/Vol] 1.42 mg/dL 0.70-1.30 [facility] Comment on above: The validity of the calculated GFR & GFRAA in patients over 70 years has not been determined. Clinical correlation is essential. Serum or plasma urea nitroge n measurement (mass/volume)Ordered By: Syed Allen on 01-27-2023 Urea nitrogen [Mass/Vol] 29 mg/dL 7-18 [facility] Serum procalcitonin measurem entOrdered By: Karen Jermain on 01-27-2023 Procalcitonin [Mass/Vol] 0.12 ng/mL 0.00-0.09 [facility] Thin prep Papanicolaou smear with manual screeningOrdered By: Syed Allen on 01-27-2023 Thin prep Papanicolaou smear with manual screening 68 U/L 15-37 [facility] Thin prep Papanicolaou smear with manual screening 4 5-15 [facility] Urine Legionella pneumophila antigen detectionOrdered By: Karen Aly on 01-27-2023 L. pneumophila Ag Ql (U) [facility] Absolute lymphocyte countOrd ered By: Ryan Tinoco on 01-26-2023 Lymphocytes Auto (Unsp spec) [#/Vol] 0.69 10*3/uL 0.83-4.51 [facility] Basophil percentageOrdered B y: Karen Jermain on 01-26-2023 Basophil percentage 2.4 mg/dL 2.5-4.9 [facility] Basophil percentageOrdered B y: Ryan Tinoco on 01-26-2023 Basophil percentage 235 mg/dL 74-106 [facility] Basophil percentage 143 mmol/L 136-145 [facility] Basophil percentage 3.8 mmol/L 3.5-5.1 [facility] Basophil percentage 114 mmol/L 98-107 [facility] Basophils (Bld) [#/Vol] 8.5 10*3/uL 4.4-11.0 [facility] Basophils (Bld) [#/Vol] 6.7 10*3/uL 2.0-7.7 [facility] Basophils/100 WBC (Bld) 0.1 % 0-1 [facility] Basophils/100 WBC (Bld) 78.4 % 47-70 [facility] Basophils/100 WBC (Bld) 1.6 % 0-5 [facility] Chloride [Moles/Vol] 114 mmol/L 98-107 [facility] Eosinophils/100 WBC (Bld) 1.6 % 0-5 [facility] Glucose [Mass/Vol] 235 mg/dL 74-106 [facility] Comment on above: Glucose result great er than or equal to 200 mg/dLsuggests DIABETES MELLITUS per A.D.A. criteria. Neutrophils (Bld) [#/Vol] 6.7 10*3/uL 2.0-7.7 [facility] Neutrophils/100 WBC (Bld) 78.4 % 47-70 [facility] Potassium [Moles/Vol] 3.8 mmol/L 3.5-5.1 [facility] Sodium [Moles/Vol] 143 mmol/L 136-145 [facility] WBC (Bld) [#/Vol] 8.5 10*3/uL 4.4-11.0 [facility] Blood erythrocytes count (nu mber/volume)Ordered By: Ryan Tinoco on 01-26-2023 RBC (Bld) [#/Vol] 3.06 10*6/uL 4.6-6.2 [facility] Blood hemoglobin measurement (mass/volume)Ordered By: Ryan Tinoco on 01-26-2023 Hemoglobin (Bld) [Mass/Vol] 8.6 g/dL 13.0-16. 5 [facility] Blood lymphocytes/100 leukoc ytesOrdered By: Ryan Tinoco on 01-26-2023 Lymphocytes/100 WBC (Bld) 8.1 % 19-41 [facility] Blood monocytes/100 leukocyt esOrdered By: Ryan Tinoco on 01-26-2023 Monocytes/100 WBC (Bld) 9.6 % 0-10 [facility] Blood platelet mean volumeOr dered By: Ryan Tinoco on 01-26-2023 Platelet mean volume (Bld) [Entitic vol] 9.9 fL 6.2-12.0 [facility] COVID-19 virus antigen assay Ordered By: Ryan Tinoco on 01-26-2023 SARS-CoV-2 (COVID-19) Ag IA.rapid Ql (Resp) [facility] SARS-CoV-2 (COVID-19) Ag IA.rapid Ql (Resp) [facility] Determination of erythrocyte mean corpuscular volume (MCV)Ordered By: Ryan Tinoco on 01-26-2023 MCV (RBC) [Entitic vol] 88.6 fL 80-94 [facility] Glucose Glucometer (BldC) [M ass/Vol]Ordered By: Ryan Tinoco on 01-26-2023 Glucose [Mass/Vol] 230 mg/dL 74-106 [facility] Comment on above: MANAGEMENT OF PATIEN T CARE PER NURSING PROTOCOL Hematocrit Auto (Bld) [Volum e fraction]Ordered By: Ryan Tinoco on 01-26-2023 Hematocrit (Bld) [Volume fraction] 27.1 % 40-54 [facility] - Chemistry and C hemistry - challengeOrdered By: Ryan Tinoco on 01-26-2023 CO2 [Moles/Vol] 23.0 mmol/L 21.0-32.0 [facility] Urea nitrogen/Creatinine [Mass ratio] 18.8 mg/mg 10-20 [facility] - Chemistry and C hemistry - challengeOrdered By: Karen Aly on 01-26-2023 Magnesium [Mass/Vol] 1.8 mg/dL 1.6-2.6 [facility] Laboratory - Hematology and Cell countsOrdered By: Ryan Tinoco on 01-26-2023 Erythrocyte distribution width (RBC) [Entitic vol] 50.6 fL 35.1-43.9 [facility] Erythrocyte distribution width (RBC) [Ratio] 15.9 % 11.6-14.6 [facility] Immature granulocytes/100 WBC (Bld) 2.200 % 0.0-0.9 [facility] Comment on above: IG% - Immature Granu locytes (promyelocytes, myelocytes and metamyelocytes) > 1% indicates that a LEFT SHIFT is Present. MCH (RBC) [Entitic mass] 28.1 pg 27.0-32.0 [facility] Nucleated RBC/100 WBC (Bld) [Ratio] 0.5 % 0-5 [facility] MCHC Auto (RBC) [Mass/Vol]Or dered By: Ryan Tinoco on 01-26-2023 MCHC (RBC) [Mass/Vol] 31.7 g/dL 32-36 [facility] No Panel InformationOrdered By: Ryan Tinoco on 01-26-2023 Estimated Creatinine Clearance Calc 48.41 ml/min [facility] Estimated GFR (MDRD) Amer 59 mL/min >60 [facility] Comment on above: GFR Calc Estimated GFR (MDRD) Non-Af Amer 49 mL/min >60 [facility] Comment on above: Non- GFR Calc 28.1 pg 27.0-32.0 [facility] 15.9 % 11.6-14.6 [facility] 50.6 fl 35.1-43.9 [facility] 2.200 % 0.0-0.9 [facility] 0.5 % 0-5 [facility] 49 mL/min >60 [facility] 59 mL/min >60 [facility] 48.41 ml/min [facility] 18.8 RATIO 10-20 [facility] 23.0 mmol/L 21.0-32.0 [facility] No Panel InformationOrdered By: Karen Aly on 01-26-2023 1.8 mg/dL 1.6-2.6 [facility] Platelets bldOrdered By: Jaziel Tinoco on 01-26-2023 Platelets (Bld) [#/Vol] 217 10*3/uL 150-450 [facility] Serum or plasma calcium antoine urement (mass/volume)Ordered By: Ryan Tinoco on 01-26-2023 Calcium [Mass/Vol] 8.5 mg/dL 8.5-10.1 [facility] Serum or plasma creatinine m easurement (mass/volume)Ordered By: Ryan Tinoco on 01-26-2023 Creatinine [Mass/Vol] 1.49 mg/dL 0.70-1.30 [facility] Comment on above: The validity of the calculated GFR & GFRAA in patients over 70 years has not been determined. Clinical correlation is essential. Serum or plasma urea nitroge n measurement (mass/volume)Ordered By: Ryan Tinoco on 01-26-2023 Urea nitrogen [Mass/Vol] 28 mg/dL 7-18 [facility] Thin prep Papanicolaou smear with manual screeningOrdered By: Ryan Tinoco on 01-26-2023 Thin prep Papanicolaou smear with manual screening 6 5-15 [facility] INR in Blood by Coagulation assayOrdered By: Ryan Tinoco on 01-25-2023 INR Coag (Bld) [Relative time] 1.6 {INR} [facility] - CoagulationOrde red By: Ryan Tinoco on 01-25-2023 PT Coag (PPP) [Time] 19.1 s 11.7-14.9 [facility] No Panel InformationOrdered By: yRan Tinoco on 01-25-2023 19.1 SECONDS 11.7-14.9 [facility] Albumin Elph [Mass/Vol]Order ed By: Liu Hackett on 01-22-2023 Albumin [Mass/Vol] 2.5 g/dL 2.9-4.4 [facility] Aldolase ser/plasOrdered By: Liu Hackett on 01-22-2023 Aldolase [Catalytic activity/Vol] 1.5 mU/mL 3.3-10.3 [facility] Comment on above: Performed at: [address] [id number] Director: Ernie Jacob PhD, Phone: [phone] at: [facility] [id number] Director: Lindsay Kearns MD, Phone: [phone] Atypical perinuclear antineu trophil cytoplasmic antibodies measurementOrdered By: Liu Hackett on 01-22-2023 Neutrophil cytoplasmic Ab.perinuclear.atypical IF (S) [Titer] <1:20 titer Neg:<1:20 [facility] Comment on above: The atypical pANCA p attern has been observed in asignificant percentage of patients with ulcerative colitis,primary sclerosing cholangitis and autoimmune hepatitis. Basophil percentageOrdered B y: Liu Hackett on 01-22-2023 Basophil percentage < 0.2 AI 0.0-0.9 [facility] Basophil percentage 3.4 mmol/L 0.4-2.0 [facility] Basophil percentage 136 U/L 87-241 [facility] Lactate [Moles/Vol] 3.4 mmol/L 0.4-2.0 [facility] Comment on above: Critical Result(s) C alled at: 12:30:42 01/22/2023 by: Aruna Morales. Inocencio Martin RN (ICU). Results read back by same. LDH [Catalytic activity/Vol] 136 U/L 87-241 [facility] Blood polychromasia detectio n by light microscopyOrdered By: Jesus Burnham on 01-22-2023 Polychromasia LM Ql (Bld) 1+ [facility] Interpretation of serum or p lasma protein pattern by immunofixation (narrative resultOrdered By: Liu Hackett on 01-22-2023 Protein Fractions Immunofixation Ori [Interp] See comment [facility] Comment on above: NOT OBSERVED Laboratory - Chemistry and C hemistry - challengeOrdered By: Liu Hackett on 01-22-2023 CK [Catalytic activity/Vol] 31 U/L 39-308 [facility] Laboratory - Hematology and Cell countsOrdered By: Jesus Burnham on 01-22-2023 Anisocytosis Ql (Bld) 1+ [facility] No Panel InformationOrdered By: Liu Hackett on 01-22-2023 Addendum Document Comment . [facility] Comment on above: Protein electrophore sis scan will follow via computer,mail, or back tufter delivery. Centromere B Antibody <0.2 AI 0.0-0.9 [facility] Immunoglobulin E 399 IU/mL 6-495 [facility] Immunoglobulin G4 8 mg/dL 2-96 [facility] [employer]IST Antibody <0.2 AI 0.0-0.9 [facility] 31 U/L 39-308 [facility] 8 mg/dL 2-96 [facility] 399 IU/mL 6-495 [facility] <0.2 AI 0.0-0.9 [facility] No Panel InformationOrdered By: Jesus Burnham on 01-22-2023 1+ [facility] Review by pathologistOrdered By: Jesus Burnham on 01-22-2023 Pathologist review Ori (Unsp spec) [Interp] Reviewed [facility] Comment on above: Previous reported re sult: Corie sr Edited by: KEN on 01/23/23:1008Neutrophilic leukocytosis with left shift.Normocytic anemia.Clinical correlation necessary.Evaristo Dela Cruz M.D. 01/23/23 AMENDED REPORT 01/23/23 1008 PATH REV previously reported as: Corie sr Serum DNA double strand anti body assay (units/volume)Ordered By: Liuasim Hackett on 01-22-2023 DNA double strand Ab Qn (S) [IU]/mL 0-9 [facility] Comment on above: Negative <5 Equivoca l 5 - 9 Positive >9 Serum IgG subclass 1 measure ment (mass/volume)Ordered By: Liuasim Hackett on 01-22-2023 IgG subclass 1 (S) [Mass/Vol] 237 mg/dL 248-810 [facility] Serum IgG subclass 2 measure ment (mass/volume)Ordered By: Liuasim Hackett on 01-22-2023 IgG subclass 2 (S) [Mass/Vol] 115 mg/dL 130-555 [facility] Serum IgG subclass 3 measure ment (mass/volume)Ordered By: Liu Roxann on 01-22-2023 IgG subclass 3 (S) [Mass/Vol] 20 mg/dL 15-102 [facility] Serum Kelsey-1 antibody assay (u nits/volume)Ordered By: Liuasim Hackett on 01-22-2023 Kelsey-1 extractable nuclear Ab Qn (S) <0.2 AI 0.0-0.9 [facility] Serum Scl-70 extractable nuc lear antibody assay (units/volume)Ordered By: Liu Roxann on 01-22-2023 SCL-70 extractable nuclear Ab Qn (S) <0.2 AI 0.0-0.9 [facility] Serum Martinez extractable nucl ear antibody detectionOrdered By: Liu Hackett on 01-22-2023 Martinez extractable nuclear Ab Ql (S) <0.2 AI 0.0-0.9 [facility] Serum [id number] measu rement by electrophoresisOrdered By: Liu Hackett on 01-22-2023 Alpha 1 globulin Elph [Mass/Vol] 0.2 g/dL 0.0-0.4 [facility] Alpha 1 globulin Elph [Mass/Vol] 0.6 g/dL 0.4-1.0 [facility] Serum classic neutrophil cyt oplasmic antibody assay (units/volume)Ordered By: Liu Hackett on 01-22-2023 Neutrophil cytoplasmic Ab.classic Qn (S) <1:20 titer Neg:<1:20 [facility] Serum globulin measurement ( mass/volume)Ordered By: Liu Hackett on 01-22-2023 Globulin (S) [Mass/Vol] 1.9 g/dL 2.2-3.9 [facility] Serum or plasma IgA measurem ent (mass/volume)Ordered By: Liu Hackett on 01-22-2023 IgA [Mass/Vol] 194 mg/dL 61-437 [facility] Serum or plasma IgG measurem ent (mass/volume)Ordered By: Liu Hackett on 01-22-2023 IgG [Mass/Vol] 417 mg/dL 603-1613 [facility] IgG [Mass/Vol] Not Reportable [facility] Serum or plasma IgM measurem ent (mass/volume)Ordered By: Liu Hackett on 01-22-2023 IgM [Mass/Vol] 15 mg/dL 15-143 [facility] Comment on above: Result confirmed on concentration. Serum or plasma beta globuli n measurement by electrophoresis (mass/volume)Ordered By: Liu Hackett on 01-22-2023 Beta globulin Elph [Mass/Vol] 0.7 g/dL 0.7-1.3 [facility] Serum or plasma gamma globul in measurement by electrophoresis (mass/volume)Ordered By: Liu Hackett on 01-22-2023 Gamma globulin Elph [Mass/Vol] 0.3 g/dL 0.4-1.8 [facility] Serum or plasma immunoelectr ophoresis interpretation (nominal result)Ordered By: Liu Hackett on 01-22-2023 Interpretation IEP [Interp] Comment . [facility] Comment on above: No monoclonality det ected. Serum perinuclear neutrophil cytoplasmic antibody titer by immunofluorescenceOrdered By: Liu Hackett on 01-22-2023 Neutrophil cytoplasmic Ab.perinuclear IF (S) [Titer] <1:20 titer Neg:<1:20 [facility] Comment on above: The presence of posi tive fluorescence exhibiting P-ANCA orC-ANCA patterns alone is not specific for the diagnosis ofWegener's Granulomatosis (WG) or microscopic polyangiitis.Decisions about treatment should not be based solely onANCA IFA results. The [employer] ANCA Group Consensusrecommends follow up testing of positive sera with both SC-3 and MPO-ANCA enzyme immunoassays. As many as 5% serumsamples are positive only by EIA. Ref. AM J Clin Okvlyv1198;111:507-513. Thin prep Papanicolaou smear with manual screeningOrdered By: Liu Hackett on 01-22-2023 Thin prep Papanicolaou smear with manual screening 1.4 0.7-1.7 [facility] Total protein bloodOrdered B y: Liu Hackett on 01-22-2023 Protein [Mass/Vol] 4.4 g/dL 6.0-8.5 [facility] Absolute lymphocyte countOrd ered By: Dandy Sauer on 01-21-2023 Lymphocytes Auto (Unsp spec) [#/Vol] 1.69 10*3/uL 0.83-4.51 [facility] Basophil percentageOrdered B y: Dandy Sauer on 01-21-2023 Basophil percentage 0-5 SEEN /hpf 0-5 [facility] Basophil percentage 5.4 g/dL 6.4-8.2 [facility] Basophil percentage 0.30 mg/dL 0.20-1.00 [facility] Basophils/100 WBC (Bld) 0.3 % 0-1 [facility] Bilirubin [Mass/Vol] 0.30 mg/dL 0.20-1.00 [facility] Comment on above: For patients on eltr ombopag therapy, use of Dimension [place] TBIL is not recommended. Chloride [Moles/Vol] 109 mmol/L 98-107 [facility] Eosinophils/100 WBC (Bld) 0.0 % 0-5 [facility] Glucose [Mass/Vol] 248 mg/dL 74-106 [facility] Comment on above: Glucose result great er than or equal to 200 mg/dLsuggests DIABETES MELLITUS per A.D.A. criteria. Lactate [Moles/Vol] 7.9 mmol/L 0.4-2.0 [facility] Comment on above: Critical Result(s) C alled at: 09:48:37 01/21/2023 by: Aruna Tadeo. Results read back by same. Neutrophils (Bld) [#/Vol] 19.7 10*3/uL 2.0-7.7 [facility] Neutrophils/100 WBC (Bld) 87.8 % 47-70 [facility] Potassium [Moles/Vol] 5.2 mmol/L 3.5-5.1 [facility] Protein [Mass/Vol] 5.4 g/dL 6.4-8.2 [facility] Sodium [Moles/Vol] 138 mmol/L 136-145 [facility] WBC (Bld) [#/Vol] 22.4 10*3/uL 4.4-11.0 [facility] Bilirubin Test strip Ql (U)O rdered By: Dandy Sauer on 01-21-2023 Bilirubin Ql (U) 1 mg/dL Negative [facility] Comment on above: COLOR OF URINE MAY A FFECT DIPSTICK RESULTS. Blood erythrocytes count (nu mber/volume)Ordered By: Dandy Sauer on 01-21-2023 RBC (Bld) [#/Vol] 3.96 10*6/uL 4.6-6.2 [facility] Blood hemoglobin measurement (mass/volume)Ordered By: Dandy Sauer on 01-21-2023 Hemoglobin (Bld) [Mass/Vol] 10.7 g/dL 13.0-16. 5 [facility] Blood lymphocytes/100 leukoc ytesOrdered By: Dandy Sauer on 01-21-2023 Lymphocytes/100 WBC (Bld) 7.5 % 19-41 [facility] Blood monocytes/100 leukocyt esOrdered By: Dandy Sauer on 01-21-2023 Monocytes/100 WBC (Bld) 2.4 % 0-10 [facility] Blood platelet mean volumeOr dered By: Dandy Sauer on 01-21-2023 Platelet mean volume (Bld) [Entitic vol] 10.7 fL 6.2-12.0 [facility] Determination of erythrocyte mean corpuscular volume (MCV)Ordered By: Dandy Sauer on 01-21-2023 MCV (RBC) [Entitic vol] 86.6 fL 80-94 [facility] Hematocrit Auto (Bld) [Volum e fraction]Ordered By: Dandy Sauer on 01-21-2023 Hematocrit (Bld) [Volume fraction] 34.3 % 40-54 [facility] INR in Blood by Coagulation assayOrdered By: Dandy Sauer on 01-21-2023 INR Coag (Bld) [Relative time] 4.2 {INR} [facility] Comment on above: CRITICAL VALUE VERIF IED. CALLED TO EVANS MARI (ER)01/21/23 1011 Zachary Gabriel.RESULTS READ BACK BY SAME. Ketones Test strip Ql (U)Ord ered By: Dandy Sauer on 01-21-2023 Ketones Ql (U) 15 mg/dl Negative [facility] Laboratory - Chemistry and C hemistry - challengeOrdered By: Dandy Sauer on 01-21-2023 ALP [Catalytic activity/Vol] 76 U/L 45-117 [facility] ALT [Catalytic activity/Vol] 25 U/L 16-61 [facility] CO2 [Moles/Vol] 12.0 mmol/L 21.0-32.0 [facility] Globulin (S) [Mass/Vol] 2.7 g/dL 2.2-4.2 [facility] Urea nitrogen/Creatinine [Mass ratio] 62.8 mg/mg 10-20 [facility] - CoagulationOrde red By: Dandy Sauer on 01-21-2023 PT Coag (PPP) [Time] 41.4 s 11.7-14.9 [facility] Laboratory - Hematology and Cell countsOrdered By: Dandy Sauer on 01-21-2023 Erythrocyte distribution width (RBC) [Entitic vol] 46.6 fL 35.1-43.9 [facility] Erythrocyte distribution width (RBC) [Ratio] 14.7 % 11.6-14.6 [facility] Immature granulocytes/100 WBC (Bld) 2.000 % 0.0-0.9 [facility] Comment on above: IG% - Immature Granu locytes (promyelocytes, myelocytes and metamyelocytes) > 1% indicates that a LEFT SHIFT is Present. MCH (RBC) [Entitic mass] 27.0 pg 27.0-32.0 [facility] Nucleated RBC/100 WBC (Bld) [Ratio] 0 % 0-5 [facility] Lower GI hemoglobin IA Ql (S tl)Ordered By: Dandy Sauer on 01-21-2023 Stool gastrointestinal hemoglobin detection by immunologic method Positive [facility] Stool Occult Blood (KLAUS) Positive [facility] Stool gastrointestinal hemoglobin detection by immunologic method Positive [facility] MCHC Auto (RBC) [Mass/Vol]Or dered By: Dandy Sauer on 01-21-2023 MCHC (RBC) [Mass/Vol] 31.2 g/dL 32-36 [facility] Mucus LM Ql (Urine sed)Order ed By: Dandy Sauer on 01-21-2023 Mucus Ql (Urine sed) 0 SEEN /hpf [facility] Nitrite Test strip Ql (U)Ord ered By: Dandy Sauer on 01-21-2023 Nitrite Ql (U) Negative Negative [facility] No Panel InformationOrdered By: Dandy Sauer on 01-21-2023 Estimated Creatinine Clearance Calc 36.25 ml/min [facility] Estimated GFR (MDRD) Amer 42 mL/min >60 [facility] Comment on above: GFR Calc Estimated GFR (MDRD) Non-Af Amer 35 mL/min >60 [facility] Comment on above: Non- GFR Calc Troponin I High Sensitivity 23 pg/mL 3.0-78.0 [facility] Comment on above: Please Note: New Thania t Units and Gender Specific Reference Ranges. For more information see Policy Stat Procedure [place] High Sensitivity Troponin (TNIH) and attachments. 23 pg/mL 3.0-78.0 [facility] 76 U/L 45-117 [facility] 25 U/L 16-61 [facility] Platelets bldOrdered By: Renetta Sauer on 01-21-2023 Platelets (Bld) [#/Vol] 389 10*3/uL 150-450 [facility] Protein Test strip Ql (U)Ord ered By: Dandy Sauer on 01-21-2023 Protein Ql (U) 15 mg/dl Negative [facility] Serum or plasma albumin antoine urement (mass/volume)Ordered By: Dandy Sauer on 01-21-2023 Albumin [Mass/Vol] 2.7 g/dL 3.2-5.0 [facility] Serum or plasma albumin/glob ulin mass ratioOrdered By: Dandy Sauer on 01-21-2023 Albumin/Globulin [Mass ratio] 1.0 {ratio} 0.9-2.4 [facility] Serum or plasma calcium antoine urement (mass/volume)Ordered By: Dandy Sauer on 01-21-2023 Calcium [Mass/Vol] 9.7 mg/dL 8.5-10.1 [facility] Serum or plasma creatinine m easurement (mass/volume)Ordered By: Dandy Sauer on 01-21-2023 Creatinine [Mass/Vol] 1.99 mg/dL 0.70-1.30 [facility] Comment on above: The validity of the calculated GFR & GFRAA in patients over 70 years has not been determined. Clinical correlation is essential. Serum or plasma urea nitroge n measurement (mass/volume)Ordered By: Dandy Sauer on 01-21-2023 Urea nitrogen [Mass/Vol] 125 mg/dL 7-18 [facility] Comment on above: Critical Result(s) C alled at: 09:53:00 01/21/2023 by: Aruna Morales to Shwetha. Results read back by same. Squamous epithelial cells de tection in urine sediment by light microscopyOrdered By: Dandy Sauer on 01-21-2023 Epithelial cells.squamous LM Ql (Urine sed) 0-5 SEEN /hpf 0-5 [facility] Thin prep Papanicolaou smear with manual screeningOrdered By: Dandy Sauer on 01-21-2023 Thin prep Papanicolaou smear with manual screening 9 U/L 15-37 [facility] Thin prep Papanicolaou smear with manual screening 17 5-15 [facility] Urine blood detectionOrdered By: Dandy Sauer on 01-21-2023 RBC Ql (U) Negative Negative [facility] RBC Ql (U) 0 SEEN /hpf 0-5 [facility] Urine clarityOrdered By: Renetta Sauer on 01-21-2023 Clarity (U) Clear Clear [facility] Urine color determinationOrd ered By: Dandy Sauer on 01-21-2023 Color (U) Yellow Yellow [facility] Urine glucose detectionOrder ed By: Dandy Sauer on 01-21-2023 Glucose Ql (U) 100 mg/dl Normal [facility] Urine leukocyte esterase det ection by dipstickOrdered By: Dandy Sauer on 01-21-2023 Leukocyte esterase Test strip Ql (U) Negative Negative [facility] Urine pHOrdered By: Dandy Sauer on 01-21-2023 pH (U) 5.0 [pH] 5.0 - 8.0 [facility] Urine sediment bacteria coun t by microscopy (number/high power field)Ordered By: Dandy Sauer on 01-21-2023 Bacteria LM.HPF (Urine sed) [#/Area] 0 /[HPF] None Seen [facility] Urine specific gravity measu rementOrdered By: Dandy Sauer on 01-21-2023 Specific gravity (U) [Rel density] 1.020 1.002-1.03 0 [facility] Urobilinogen Auto test strip Ql (U)Ordered By: Dandy Sauer on 01-21-2023 Urobilinogen Ql (U) Normal mg/dl Normal [facility] Glucose Glucometer (BldC) [M ass/Vol]Ordered By: Gabriel Giraldo on 01-08-2023 Glucose [Mass/Vol] 201 mg/dL 74-106 [facility] Comment on above: MANAGEMENT OF PATIEN T CARE PER NURSING PROTOCOL Absolute lymphocyte countOrd ered By: Karen Aly on 01-07-2023 Lymphocytes Auto (Unsp spec) [#/Vol] 1.83 10*3/uL 0.83-4.51 [facility] Basophil percentageOrdered B y: Karen Aly on 01-07-2023 Basophil percentage 121 mg/dL 74-106 [facility] Basophil percentage 6.0 g/dL 6.4-8.2 [facility] Basophil percentage 0.70 mg/dL 0.20-1.00 [facility] Basophil percentage 138 mmol/L 136-145 [facility] Basophil percentage 4.1 mmol/L 3.5-5.1 [facility] Basophil percentage 106 mmol/L 98-107 [facility] Basophils (Bld) [#/Vol] 9.3 10*3/uL 4.4-11.0 [facility] Basophils (Bld) [#/Vol] 6.4 10*3/uL 2.0-7.7 [facility] Basophils/100 WBC (Bld) 0.6 % 0-1 [facility] Basophils/100 WBC (Bld) 69.0 % 47-70 [facility] Basophils/100 WBC (Bld) 2.4 % 0-5 [facility] Bilirubin [Mass/Vol] 0.70 mg/dL 0.20-1.00 [facility] Comment on above: For patients on eltr ombopag therapy, use of Dimension [place] TBIL is not recommended. Chloride [Moles/Vol] 106 mmol/L 98-107 [facility] Eosinophils/100 WBC (Bld) 2.4 % 0-5 [facility] Glucose [Mass/Vol] 121 mg/dL 74-106 [facility] Comment on above: Fasting Glucose resu lt from 100 to 125 mg/dL suggests IMPAIRED HOMEOSTASIS per A.D.A. criteria. Neutrophils (Bld) [#/Vol] 6.4 10*3/uL 2.0-7.7 [facility] Neutrophils/100 WBC (Bld) 69.0 % 47-70 [facility] Potassium [Moles/Vol] 4.1 mmol/L 3.5-5.1 [facility] Protein [Mass/Vol] 6.0 g/dL 6.4-8.2 [facility] Sodium [Moles/Vol] 138 mmol/L 136-145 [facility] WBC (Bld) [#/Vol] 9.3 10*3/uL 4.4-11.0 [facility] Blood erythrocytes count (nu mber/volume)Ordered By: White on 01-07-2023 RBC (Bld) [#/Vol] 4.90 10*6/uL 4.6-6.2 [facility] Blood hemoglobin measurement (mass/volume)Ordered By: White on 01-07-2023 Hemoglobin (Bld) [Mass/Vol] 13.1 g/dL 13.0-16. 5 [facility] Blood lymphocytes/100 leukoc ytesOrdered By: White on 01-07-2023 Lymphocytes/100 WBC (Bld) 19.8 % 19-41 [facility] Blood monocytes/100 leukocyt esOrdered By: White on 01-07-2023 Monocytes/100 WBC (Bld) 7.2 % 0-10 [facility] Blood platelet mean volumeOr dered By: Karen Aly on 01-07-2023 Platelet mean volume (Bld) [Entitic vol] 9.1 fL 6.2-12.0 [facility] Determination of erythrocyte mean corpuscular volume (MCV)Ordered By: Karen Aly on 01-07-2023 MCV (RBC) [Entitic vol] 83.5 fL 80-94 [facility] Hematocrit Auto (Bld) [Volum e fraction]Ordered By: Karen Jermain on 01-07-2023 Hematocrit (Bld) [Volume fraction] 40.9 % 40-54 [facility] INR in Blood by Coagulation assayOrdered By: [facility] Jermain on 01-07-2023 INR Coag (Bld) [Relative time] 2.2 {INR} [facility] Laboratory - Chemistry and C hemistry - challengeOrdered By: [facility] Jermain on 01-07-2023 ALP [Catalytic activity/Vol] 90 U/L 45-117 [facility] ALT [Catalytic activity/Vol] 18 U/L 16-61 [facility] CO2 [Moles/Vol] 24.0 mmol/L 21.0-32.0 [facility] Globulin (S) [Mass/Vol] 3.1 g/dL 2.2-4.2 [facility] Urea nitrogen/Creatinine [Mass ratio] 23.0 mg/mg 10-20 [facility] Laboratory - CoagulationOrde red By: Karen Aly on 01-07-2023 PT Coag (PPP) [Time] 24.8 s 11.7-14.9 [facility] Laboratory - Hematology and Cell countsOrdered By: [facility] Jermain on 01-07-2023 Erythrocyte distribution width (RBC) [Entitic vol] 43.7 fL 35.1-43.9 [facility] Erythrocyte distribution width (RBC) [Ratio] 14.5 % 11.6-14.6 [facility] Immature granulocytes/100 WBC (Bld) 1.000 % 0.0-0.9 [facility] Comment on above: IG% - Immature Granu locytes (promyelocytes, myelocytes and metamyelocytes) > 1% indicates that a LEFT SHIFT is Present. MCH (RBC) [Entitic mass] 26.7 pg 27.0-32.0 [facility] Nucleated RBC/100 WBC (Bld) [Ratio] 0 % 0-5 [facility] ([facility]BC) [Mass/Vol]Or dered By: Karen Aly on 01-07-2023 MCHC (RBC) [Mass/Vol] 32.0 g/dL 32-36 [facility] No Panel InformationOrdered By: Karen Aly on 01-07-2023 Estimated Creatinine Clearance Calc 63.83 ml/min [facility] Estimated GFR (MDRD) Amer 81 mL/min >60 [facility] Comment on above: GFR Calc Estimated GFR (MDRD) Non-Af Amer 67 mL/min >60 [facility] Comment on above: Non- GFR Calc 26.7 pg 27.0-32.0 [facility] 14.5 % 11.6-14.6 [facility] 43.7 fl 35.1-43.9 [facility] 1.000 % 0.0-0.9 [facility] 0 % 0-5 [facility] 24.8 SECONDS 11.7-14.9 [facility] 67 mL/min >60 [facility] 81 mL/min >60 [facility] 63.83 ml/min [facility] 23.0 RATIO 10-20 [facility] 3.1 g/dL 2.2-4.2 [facility] 90 U/L 45-117 [facility] 18 U/L 16-61 [facility] 24.0 mmol/L 21.0-32.0 [facility] Platelets bldOrdered By: Dede Aly on 01-07-2023 Platelets (Bld) [#/Vol] 216 10*3/uL 150-450 [facility] Serum or plasma albumin antoine urement (mass/volume)Ordered By: Karen Aly on 01-07-2023 Albumin [Mass/Vol] 2.9 g/dL 3.2-5.0 [facility] Serum or plasma albumin/glob ulin mass ratioOrdered By: Karen Aly on 01-07-2023 Albumin/Globulin [Mass ratio] 0.9 {ratio} 0.9-2.4 [facility] Serum or plasma calcium antoine urement (mass/volume)Ordered By: Karen Aly on 01-07-2023 Calcium [Mass/Vol] 8.8 mg/dL 8.5-10.1 [facility] Serum or plasma creatinine m easurement (mass/volume)Ordered By: Karen Aly on 01-07-2023 Creatinine [Mass/Vol] 1.13 mg/dL 0.70-1.30 [facility] Comment on above: The validity of the calculated GFR & GFRAA in patients over 70 years has not been determined. Clinical correlation is essential. Serum or plasma urea nitroge n measurement (mass/volume)Ordered By: Karen Aly on 01-07-2023 Urea nitrogen [Mass/Vol] 26 mg/dL 7-18 [facility] Thin prep Papanicolaou smear with manual screeningOrdered By: Karen Aly on 01-07-2023 Thin prep Papanicolaou smear with manual screening 13 U/L 15-37 [facility] Thin prep Papanicolaou smear with manual screening 8 5-15 [facility] Basophil percentageOrdered B y: Karen Aly on 01-05-2023 Basophil percentage 87 mg/dL <200 [facility] Basophil percentage 116 mg/dL <199 [facility] Cholesterol [Mass/Vol] 87 mg/dL <200 [facility] Comment on above: <200 mg/dL Desirable 200-240 mg/dL Borderline >240 mg/dL High Risk Triglyceride [Mass/Vol] 116 mg/dL <199 [facility] Comment on above: The drugs N-Acetylcy steine and Metamizole may falsely depress this assay.Serum Triglycerides Reference Interval Normal <150 mg/dL Borderline high 150 - 199 mg/dL High 200 - 499 mg/dL Very High > or = 500 mg/dL No Panel InformationOrdered By: Karen lAy on 01-05-2023 Thyroid Stimulating Hormone (TSH) 1.13 uIU/mL 0.358-3.74 [facility] 1.13 uIU/mL 0.358-3.74 [facility] Serum or plasma cholesterol in HDL measurement (mass/volume)Ordered By: Karen Aly on 01-05-2023 Cholesterol in HDL [Mass/Vol] 37 mg/dL >40 [facility] Comment on above: The drugs N-Acetylcy steine and Metamizole may falsely depress this assay. Reference Range HDL <40 mg/dL Low HDL Cholesterol HDL >or= 60 mg/dL High HDL Cholesterol Serum or plasma cholesterol in VLDL measurement (mass/volume)Ordered By: Karen Aly on 01-05-2023 Cholesterol in VLDL [Mass/Vol] 23 mg/dL 5-40 [facility] Serum or plasma low density lipoprotein (LDL) cholesterol measurement (mass/volume)Ordered By: Karen Aly on 01-05-2023 Cholesterol in LDL [Mass/Vol] 27 mg/dL 0-130 [facility] Whole blood hemoglobin A1c/t otal hemoglobin ratio (mass fraction)Ordered By: Karen Aly on 01-05-2023 HbA1c (Bld) [Mass fraction] 5.8 % 3.8-5.6 [facility] Comment on above: Normal < 5.7 % Predi abetic 5.7 - 6.4 % Diabetic >or= 6.5 % Please note range changes. Absolute lymphocyte countOrd ered By: Dr. Roberts on 01-04-2023 Lymphocytes Auto (Unsp spec) [#/Vol] 1.31 10*3/uL 0.83-4.51 [facility] Assessment of wrist artery p atency prior to arterial punctureOrdered By: Dr. Aly on 01-04-2023 Arterial patency Wrist artery --pre arterial puncture N/A [facility] Bacteria identified Cx Nom ( U)Ordered By: Maggy Roberts on 01-04-2023 Culture, urine Positive [facility] Base excessOrdered By: Dr. Freddy pettit on 01-04-2023 Base excess Calc (BldV) [Moles/Vol] 0 mmol/L -2-2 [facility] Basophil percentageOrdered B y: Dr. Aly on 01-04-2023 Basophil percentage 23.7 mmol/L 22- [facility] Basophils/100 WBC (Bld) 96 % 95-99 [facility] Ammonia (P) [Moles/Vol] 17.0 umol/L - [facility] Basophil percentageOrdered B y: Karen Aly on 01-04-2023 Basophil percentage 17.0 umol/L - [facility] Basophil percentageOrdered B y: Dr. Roberts on 01-04-2023 Basophil percentage 0 SEEN /hpf 0-5 [facility] Basophils/100 WBC (Bld) 0.4 % 0-1 [facility] Bilirubin [Mass/Vol] 0.70 mg/dL 0.20-1.00 [facility] Comment on above: For patients on eltr ombopag therapy, use of Dimension [place] TBIL is not recommended. Chloride [Moles/Vol] 105 mmol/L 98-107 [facility] Eosinophils/100 WBC (Bld) 1.7 % 0-5 [facility] Glucose [Mass/Vol] 133 mg/dL 74-106 [facility] Comment on above: Fasting Glucose resu lt greater than or equal to 126 mg/dL suggests DIABETES MELLITUS per A.D.A. criteria. Neutrophils (Bld) [#/Vol] 8.0 10*3/uL 2.0-7.7 [facility] Neutrophils/100 WBC (Bld) 78.3 % 47-70 [facility] Potassium [Moles/Vol] 4.2 mmol/L 3.5-5.1 [facility] Protein [Mass/Vol] 6.3 g/dL 6.4-8.2 [facility] Sodium [Moles/Vol] 139 mmol/L 136-145 [facility] WBC (Bld) [#/Vol] 10.2 10*3/uL 4.4-11.0 [facility] Bilirubin Test strip Ql (U)O rdered By: Dr. Roberts on 01-04-2023 Bilirubin Ql (U) Negative Negative [facility] Blood erythrocytes count (nu mber/volume)Ordered By: Dr. Roberts on 01-04-2023 RBC (Bld) [#/Vol] 5.09 10*6/uL 4.6-6.2 [facility] Blood hemoglobin measurement (mass/volume)Ordered By: Dr. Roberts on 01-04-2023 Hemoglobin (Bld) [Mass/Vol] 13.5 g/dL 13.0-16. 5 [facility] Blood lymphocytes/100 leukoc ytesOrdered By: Dr. Roberts on 01-04-2023 Lymphocytes/100 WBC (Bld) 12.8 % 19-41 [facility] Blood monocytes/100 leukocyt esOrdered By: Dr. Roberts on 01-04-2023 Monocytes/100 WBC (Bld) 5.9 % 0-10 [facility] Blood platelet mean volumeOr dered By: Dr. Roberts on 01-04-2023 Platelet mean volume (Bld) [Entitic vol] 8.7 fL 6.2-12.0 [facility] CO2 (BldA) [Partial pressure ]Ordered By: Dr. Aly on 01-04-2023 CO2 (Bld) [Partial pressure] 33.9 mm[Hg] 35-45 [facility] Culture, urineOrdered By: Eddie Roberts on 01-04-2023 Bacteria identified Cx Nom (U) Positive [facility] Determination of erythrocyte mean corpuscular volume (MCV)Ordered By: Dr. Roberts on 01-04-2023 MCV (RBC) [Entitic vol] 82.1 fL 80-94 [facility] Direct bilirubinOrdered By: Dr. Roberts on 01-04-2023 Bilirubin.direct [Mass/Vol] 0.20 mg/dL 0.00-0.3 0 [facility] Hematocrit Auto (Bld) [Volum e fraction]Ordered By: Dr. Roberts on 01-04-2023 Hematocrit (Bld) [Volume fraction] 41.8 % 40-54 [facility] INR in Blood by Coagulation assayOrdered By: Dr. Roberts on 01-04-2023 INR Coag (Bld) [Relative time] 3.1 {INR} [facility] Ketones Test strip Ql (U)Ord ered By: Dr. Roberts on 01-04-2023 Ketones Ql (U) Negative Negative [facility] Laboratory - Chemistry and C hemistry - challengeOrdered By: Karen Aly on 01-04-2023 Cobalamin (Vitamin B12) [Mass/Vol] 260 pg/mL 211-911 [facility] - Chemistry and C hemistry - challengeOrdered By: Dr. Aly on 01-04-2023 Magnesium [Mass/Vol] 1.8 mg/dL 1.6-2.6 [facility] Laboratory - Chemistry and C hemistry - challengeOrdered By: Dr. Roberts on 01-04-2023 ALP [Catalytic activity/Vol] 102 U/L 45-117 [facility] ALT [Catalytic activity/Vol] 18 U/L 16-61 [facility] CO2 [Moles/Vol] 25.0 mmol/L 21.0-32.0 [facility] Globulin (S) [Mass/Vol] 3.2 g/dL 2.2-4.2 [facility] Urea nitrogen/Creatinine [Mass ratio] 18.7 mg/mg 10-20 [facility] Laboratory - CoagulationOrde red By: Dr. Roberts on 01-04-2023 PT Coag (PPP) [Time] 32.6 s 11.7-14.9 [facility] Laboratory - Hematology and Cell countsOrdered By: Dr. Roberts on 01-04-2023 Erythrocyte distribution width (RBC) [Entitic vol] 42.3 fL 35.1-43.9 [facility] Erythrocyte distribution width (RBC) [Ratio] 14.2 % 11.6-14.6 [facility] Immature granulocytes/100 WBC (Bld) 0.900 % 0.0-0.9 [facility] Comment on above: IG% - Immature Granu locytes (promyelocytes, myelocytes and metamyelocytes) > 1% indicates that a LEFT SHIFT is Present. MCH (RBC) [Entitic mass] 26.5 pg 27.0-32.0 [facility] Nucleated RBC/100 WBC (Bld) [Ratio] 0 % 0-5 [facility] Laboratory - Microbiology an d Antimicrobial susceptibilityOrdered By: Magyg Roberts on 01-04-2023 Bacteria identified Cx Nom (Bld) No growth in 5 days. [facility] MCHC Auto (RBC) [Mass/Vol]Or dered By: Dr. Roberts on 01-04-2023 MCHC (RBC) [Mass/Vol] 32.3 g/dL 32-36 [facility] Mucus LM Ql (Urine sed)Order ed By: Dr. Roberts on 01-04-2023 Mucus Ql (Urine sed) 0 SEEN /hpf [facility] Nitrite Test strip Ql (U)Ord ered By: Dr. Roberts on 01-04-2023 Nitrite Ql (U) Negative Negative [facility] No Panel InformationOrdered By: Dr. Aly on 01-04-2023 Blood Gas Oxygen Percent 21 [facility] Blood Gas Sample Site R [facility] Blood Gas Specimen Type ART [facility] Blood Gas Total CO2 25 mmol/L [facility] Oxygen Delivery Device Room Air [facility] No Panel InformationOrdered By: Karen Aly on 01-04-2023 ART [facility] R Brach [facility] Room Air [facility] 21 [facility] 25 mmol/L [facility] 1.8 mg/dL 1.6-2.6 [facility] 260 pg/mL 211-911 [facility] No Panel InformationOrdered By: Maggy Roberts on 01-04-2023 No growth in 5 days. [facility] 7 pg/mL 3.0-78.0 [facility] No Panel InformationOrdered By: Dr. Roberts on 01-04-2023 Estimated Creatinine Clearance Calc 58.64 ml/min [facility] Estimated GFR (MDRD) Amer 74 mL/min >60 [facility] Comment on above: GFR Calc Estimated GFR (MDRD) Non-Af Amer 61 mL/min >60 [facility] Comment on above: Non- GFR Calc Troponin I High Sensitivity 7 pg/mL 3.0-78.0 [facility] Comment on above: Please Note: New Thania t Units and Gender Specific Reference Ranges. For more information see Policy Stat Procedure [place] High Sensitivity Troponin (TNIH) and attachments. Oxygen (BldA) [Partial press ure]Ordered By: Dr. Aly on 01-04-2023 Oxygen (Bld) [Partial pressure] 78 mmHG 75-100 [facility] Platelets bldOrdered By: Dr. Roberts on 01-04-2023 Platelets (Bld) [#/Vol] 228 10*3/uL 150-450 [facility] Protein Test strip Ql (U)Ord ered By: Dr. Roberts on 01-04-2023 Protein Ql (U) 15 mg/dl Negative [facility] Serum Treponema species anti body detectionOrdered By: Karen Aly on 01-04-2023 Treponema sp Ab Ql (S) Non-Reactive [facility] Serum or plasma albumin antoine urement (mass/volume)Ordered By: Dr. Roberts on 01-04-2023 Albumin [Mass/Vol] 3.1 g/dL 3.2-5.0 [facility] Serum or plasma calcium antoine urement (mass/volume)Ordered By: Dr. Roberts on 01-04-2023 Calcium [Mass/Vol] 8.6 mg/dL 8.5-10.1 [facility] Serum or plasma creatinine m easurement (mass/volume)Ordered By: Dr. Roberts on 01-04-2023 Creatinine [Mass/Vol] 1.23 mg/dL 0.70-1.30 [facility] Comment on above: The validity of the calculated GFR & GFRAA in patients over 70 years has not been determined. Clinical correlation is essential. Serum or plasma folate measu rement (mass/volume)Ordered By: Karen Aly on 01-04-2023 Folate [Mass/Vol] 4.40 ng/mL 3.1-55.4 [facility] Serum or plasma urea nitroge n measurement (mass/volume)Ordered By: Dr. Roberts on 01-04-2023 Urea nitrogen [Mass/Vol] 23 mg/dL 7-18 [facility] Serum procalcitonin measurem entOrdered By: Karen Aly on 01-04-2023 Procalcitonin [Mass/Vol] ng/mL 0.00-0.09 [facility] Comment on above: A procalcitonin (PCT [...] Ql (Urine sed) 0-5 SEEN /hpf 0-5 [facility] Thin prep Papanicolaou smear with manual screeningOrdered By: Dr. Roberts on 01-04-2023 Thin prep Papanicolaou smear with manual screening 13 U/L 15-37 [facility] Thin prep Papanicolaou smear with manual screening 9 5-15 [facility] Urine blood detectionOrdered By: Dr. Roberts on 01-04-2023 RBC Ql (U) 10 /ul Negative [facility] RBC Ql (U) 0-5 SEEN /hpf 0-5 [facility] Urine clarityOrdered By: Dr. Roberts on 01-04-2023 Clarity (U) Sl. Cloudy Clear [facility] Urine color determinationOrd ered By: Dr. Roberts on 01-04-2023 Color (U) Yellow Yellow [facility] Urine glucose detectionOrder ed By: Dr. Roberts on 01-04-2023 Glucose Ql (U) 100 mg/dl Normal [facility] Urine leukocyte esterase det ection by dipstickOrdered By: Dr. Roberts on 01-04-2023 Leukocyte esterase Test strip Ql (U) Negative Negative [facility] Urine pHOrdered By: Dr. Yaya gallo on 01-04-2023 pH (U) 6.0 [pH] 5.0 - 8.0 [facility] Urine sediment bacteria coun t by microscopy (number/high power field)Ordered By: Dr. Roberts on 01-04-2023 Bacteria LM.HPF (Urine sed) [#/Area] 0 /[HPF] None Seen [facility] Urine specific gravity measu rementOrdered By: Dr. Roberts on 01-04-2023 Specific gravity (U) [Rel density] 1.020 1.002-1.03 0 [facility] Urobilinogen Auto test strip Ql (U)Ordered By: Dr. Roberts on 01-04-2023 Urobilinogen Ql (U) 4 mg/dl Normal [facility] pH measurementOrdered By: Dr Jose Aly on 01-04-2023 pH (Unsp spec) 7.45 [pH] 7.35-7.45 [facility] Absolute lymphocyte counton 07-11-2022 Lymphocytes Auto (Unsp spec) [#/Vol] 1.98 10*3/uL 0.83-4.51 [facility] Work Phone: Basophil percentageon 2021 Basophils/100 WBC (Bld) 0.6 % 0-1 [facility] [facility] Work Phone: Bilirubin [Mass/Vol] 0.90 mg/dL 0.20-1.00 [facility] Work Phone: Comment on above: For patients on eltr ombopag therapy, use of Dimension [place] TBIL is not recommended. Chloride [Moles/Vol] 105 mmol/L 98-107 [facility] Work Phone: Cholesterol [Mass/Vol] 102 mg/dL <200 [facility] Work Phone: Comment on above: <200 mg/dL Desirable 200-240 mg/dL Borderline >240 mg/dL High Risk Eosinophils/100 WBC (Bld) 4.1 % 0-5 [facility] Work Phone: Glucose [Mass/Vol] 103 mg/dL 74-106 [facility] Work Phone: Comment on above: Fasting Glucose resu lt from 100 to 125 mg/dL suggests IMPAIRED HOMEOSTASIS per A.D.A. criteria. Neutrophils (Bld) [#/Vol] 5.2 10*3/uL 2.0-7.7 [facility] Work Phone: Neutrophils/100 WBC (Bld) 63.5 % 47-70 [facility] Work Phone: Potassium [Moles/Vol] 3.5 mmol/L 3.5-5.1 [facility] Work Phone: [phone] Protein [Mass/Vol] 5.9 g/dL 6.4-8.2 [facility] Work Phone: Sodium [Moles/Vol] 138 mmol/L 136-145 [facility] Work Phone: Triglyceride [Mass/Vol] 124 mg/dL <199 [facility] Work Phone: Comment on above: The drugs N-Acetylcy steine and Metamizole may falsely depress this assay.Serum Triglycerides Reference Interval Normal <150 mg/dL Borderline high 150 - 199 mg/dL High 200 - 499 mg/dL Very High > or = 500 mg/dL WBC (Bld) [#/Vol] 8.2 10*3/uL 4.4-11.0 [facility] Work Phone: Blood erythrocytes count (nu mber/volume)on 07-11-2022 RBC (Bld) [#/Vol] 4.75 10*6/uL 4.6-6.2 [facility] Work Phone: Blood hemoglobin measurement (mass/volume)on 07-11-2022 Hemoglobin (Bld) [Mass/Vol] 12.7 g/dL 13.0-16. 5 [facility] Work Phone: Blood lymphocytes/100 leukoc yteson 07-11-2022 Lymphocytes/100 WBC (Bld) 24.1 % 19-41 [facility] Work Phone: Blood monocytes/100 leukocyt eson 07-11-2022 Monocytes/100 WBC (Bld) 6.8 % 0-10 [facility] Work Phone: Blood platelet mean volumeon 07-11-2022 Platelet mean volume (Bld) [Entitic vol] 9.2 fL 6.2-12.0 [facility] Work Phone: Determination of erythrocyte mean corpuscular volume (MCV)on 07-11-2022 MCV (RBC) [Entitic vol] 82.7 fL 80-94 [facility] Work Phone: Glucose Glucometer (BldC) [M ass/Vol]on 07-11-2022 Glucose [Mass/Vol] 149 mg/dL 74-106 [facility] Work Phone: Comment on above: MANAGEMENT OF PATIEN T CARE PER NURSING PROTOCOL Hematocrit Auto (Bld) [Volum e fraction]on 07-11-2022 Hematocrit (Bld) [Volume fraction] 39.3 % 40-54 [facility] Work Phone: INR in Blood by Coagulation assayon 07-11-2022 INR Coag (Bld) [Relative time] 2.1 {INR} [facility] Work Phone: Laboratory - Chemistry and C hemistry - challengeon 07-11-2022 ALP [Catalytic activity/Vol] 106 U/L 45-117 [facility] Work Phone: ALT [Catalytic activity/Vol] 22 U/L 16-61 [facility] Work Phone: CO2 [Moles/Vol] 25.0 mmol/L 21.0-32.0 [facility] Work Phone: Globulin (S) [Mass/Vol] 2.9 g/dL 2.2-4.2 [facility] Work Phone: Magnesium [Mass/Vol] 1.9 mg/dL 1.6-2.6 [facility] Work Phone: Urea nitrogen/Creatinine [Mass ratio] 17.7 mg/mg 10-20 [facility] Work Phone: Laboratory - Coagulationon 09-11-2021 PT Coag (PPP) [Time] 23.6 s 11.7-14.9 [facility] Work Phone: Laboratory - Hematology and Cell countson 07-11-2022 Erythrocyte distribution width (RBC) [Entitic vol] 44.0 fL 35.1-43.9 [facility] Work Phone: Erythrocyte distribution width (RBC) [Ratio] 14.6 % 11.6-14.6 [facility] Work Phone: Immature granulocytes/100 WBC (Bld) 0.900 % 0.0-0.9 [facility] Work Phone: Comment on above: IG% - Immature Granu locytes (promyelocytes, myelocytes and metamyelocytes) > 1% indicates that a LEFT SHIFT is Present. MCH (RBC) [Entitic mass] 26.7 pg 27.0-32.0 [facility] Work Phone: Nucleated RBC/100 WBC (Bld) [Ratio] 0 % 0-5 [facility] Work Phone: MCHC Auto (RBC) [Mass/Vol]on 07-11-2022 MCHC (RBC) [Mass/Vol] 32.3 g/dL 32-36 [facility] Work Phone: No Panel Informationon 07-11 Estimated Creatinine Clearance Calc 64.82 ml/min [facility] Work Phone: Estimated GFR (MDRD) Amer 81 mL/min >60 [facility] Work Phone: Comment on above: GFR Calc Estimated GFR (MDRD) Non-Af Amer 67 mL/min >60 [facility] Work Phone: Comment on above: Non- GFR Calc Platelets bldon 07-11-2022 Platelets (Bld) [#/Vol] 200 10*3/uL 150-450 [facility] Work Phone: Serum or plasma albumin antoine urement (mass/volume)on 07-11-2022 Albumin [Mass/Vol] 3.0 g/dL 3.2-5.0 [facility] Work Phone: Serum or plasma albumin/glob ulin mass ratioon 07-11-2022 Albumin/Globulin [Mass ratio] 1.0 {ratio} 0.9-2.4 [facility] Work Phone: Serum or plasma calcium antoine urement (mass/volume)on 07-11-2022 Calcium [Mass/Vol] 8.6 mg/dL 8.5-10.1 [facility] Work Phone: Serum or plasma cholesterol in HDL measurement (mass/volume)on 07-11-2022 Cholesterol in HDL [Mass/Vol] 36 mg/dL >40 [facility] Work Phone: Comment on above: The drugs N-Acetylcy steine and Metamizole may falsely depress this assay. Reference Range HDL <40 mg/dL Low HDL Cholesterol HDL >or= 60 mg/dL High HDL Cholesterol Serum or plasma cholesterol in VLDL measurement (mass/volume)on 07-11-2022 Cholesterol in VLDL [Mass/Vol] 25 mg/dL 5-40 [facility] Work Phone: Serum or plasma creatinine m easurement (mass/volume)on 07-11-2022 Creatinine [Mass/Vol] 1.13 mg/dL 0.70-1.30 [facility] Work Phone: Comment on above: The validity of the calculated GFR & GFRAA in patients over 70 years has not been determined. Clinical correlation is essential. Serum or plasma low density lipoprotein (LDL) cholesterol measurement (mass/volume)on 07-11-2022 Cholesterol in LDL [Mass/Vol] 41 mg/dL 0-130 [facility] Work Phone: Serum or plasma urea nitroge n measurement (mass/volume)on 07-11-2022 Urea nitrogen [Mass/Vol] 20 mg/dL 7-18 [facility] Work Phone: Thin prep Papanicolaou smear with manual screeningon 07-11-2022 Thin prep Papanicolaou smear with manual screening 23 U/L 15-37 [facility] Work Phone: Thin prep Papanicolaou smear with manual screening 8 5-15 [facility] Work Phone: No Panel Informationon 07-10 Troponin I High Sensitivity 103 pg/mL 3.0-78.0 [facility] Work Phone: Comment on above: Please Note: New Thania t Units and Gender Specific Reference Ranges. For more information see Policy Stat Procedure [place] High Sensitivity Troponin (TNIH) and attachments. Thyroid Stimulating Hormone (TSH) 1.03 uIU/mL 0.358-3.74 [facility] Work Phone: Basophil percentageon 2021 [facility] 0-5 [facility] Work Phone: Bilirubin Test strip Ql (U)o n 07-09-2022 Bilirubin Ql (U) Negative Negative [facility] Work Phone: Hyaline casts LM.LPF (Urine sed) [#/Area]on 07-09-2022 Hyaline casts (Urine sed) [#/Area] 0 /[LPF] 0-5 [facility] Work Phone: Ketones Test strip Ql (U)on 07-09-2022 Ketones Ql (U) 5 mg/dl Negative [facility] Work Phone: Mucus LM Ql (Urine sed)on Mucus Ql (Urine sed) 1+ /hpf [facility] Work Phone: Nitrite Test strip Ql (U)on 07-09-2022 Nitrite Ql (U) Negative Negative [facility] Work Phone: Protein Test strip Ql (U)on 07-09-2022 Protein Ql (U) 30 mg/dl Negative [facility] Work Phone: Squamous epithelial cells de tection in urine sediment by light microscopyon 07-09-2022 Epithelial cells.squamous LM Ql (Urine sed) 0 SEEN /hpf 0-5 [facility] Work Phone: Urine blood detectionon 06-15 RBC Ql (U) 25 /ul Negative [facility] Work Phone: RBC Ql (U) 0-5 SEEN /hpf 0-5 [facility] Work Phone: Urine clarityon 07-09-2022 Clarity (U) Clear Clear [facility] Work Phone: Urine color determinationon 07-09-2022 Color (U) Yellow Yellow [facility] Work Phone: Urine glucose detectionon Glucose Ql (U) Normal mg/dl Normal [facility] Work Phone: Urine leukocyte esterase det ection by dipstickon 07-09-2022 Leukocyte esterase Test strip Ql (U) Negative Negative [facility] Work Phone: Urine pHon 07-09-2022 pH (U) 5.0 [pH] 5.0 - 8.0 [facility] Work Phone: Urine sediment bacteria coun t by microscopy (number/high power field)on 07-09-2022 Bacteria LM.HPF (Urine sed) [#/Area] 1 /[HPF] None Seen [facility] Work Phone: Urine specific gravity measu rementon 07-09-2022 Specific gravity (U) [Rel density] 1.025 1.002-1.03 0 [facility] Work Phone: Urobilinogen Auto test strip Ql (U)on 07-09-2022 Urobilinogen Ql (U) 1 mg/dl Normal [facility] Work Phone: [phone] INR in Blood by Coagulation assayon 03-07-2022 INR Coag (Bld) [Relative time] 2.9 {INR} [facility] Laboratory - Coagulationon 0 03-07-2022 PT Coag (PPP) [Time] 30.2 s 11.7-14.9 [facility] Work Phone: Absolute lymphocyte counton 03-02-2022 Lymphocytes Auto (Unsp spec) [#/Vol] 1.26 10*3/uL 0.83-4.51 [facility] Work Phone: Basophil percentageon 2021 Basophil percentage 0 SEEN /hpf 0-5 [facility] Work Phone: Basophils/100 WBC (Bld) 0.4 % 0-1 [facility] Work Phone: Chloride [Moles/Vol] 105 mmol/L 98-107 [facility] Work Phone: Eosinophils/100 WBC (Bld) 2.5 % 0-5 [facility] Work Phone: Glucose [Mass/Vol] 158 mg/dL 74-106 [facility] Work Phone: Comment on above: Fasting Glucose resu lt greater than or equal to 126 mg/dL suggests DIABETES MELLITUS per A.D.A. criteria. Neutrophils (Bld) [#/Vol] 8.8 10*3/uL 2.0-7.7 [facility] Work Phone: Neutrophils/100 WBC (Bld) 78.8 % 47-70 [facility] Work Phone: Potassium [Moles/Vol] 4.2 mmol/L 3.5-5.1 [facility] Work Phone: Sodium [Moles/Vol] 138 mmol/L 136-[address] [facility] [facility] Work Phone: [phone] WBC (Bld) [#/Vol] 11.2 10*3/uL 4.4-11.0 [facility] Work Phone: Bilirubin Test strip Ql (U)o n 03-02-2022 Bilirubin Ql (U) Negative Negative [facility] Work Phone: Blood erythrocytes count (nu mber/volume)on 03-02-2022 RBC (Bld) [#/Vol] 5.15 10*6/uL 4.6-6.2 [facility] Work Phone: Blood hemoglobin measurement (mass/volume)on 03-02-2022 Hemoglobin (Bld) [Mass/Vol] 13.8 g/dL 13.0-16. 5 [facility] Work Phone: Blood lymphocytes/100 leukoc yteson 03-02-2022 Lymphocytes/100 WBC (Bld) 11.2 % 19-41 [facility] Work Phone: [phone] Blood monocytes/100 leukocyt eson 03-02-2022 Monocytes/100 WBC (Bld) 5.7 % 0-10 [facility] Work Phone: Blood platelet mean volumeon 03-02-2022 Platelet mean volume (Bld) [Entitic vol] 9.0 fL 6.2-12.0 [facility] Work Phone: Determination of erythrocyte mean corpuscular volume (MCV)on 03-02-2022 MCV (RBC) [Entitic vol] 82.3 fL 80-94 [facility] Work Phone: Glucose Glucometer (BldC) [M ass/Vol]on 08-19-2022 Glucose [Mass/Vol] 158 mg/dL 74-106 [facility] Work Phone: Comment on above: MANAGEMENT OF PATIEN T CARE PER NURSING PROTOCOL Hematocrit Auto (Bld) [Volum e fraction]on 03-02-2022 Hematocrit (Bld) [Volume fraction] 42.4 % 40-54 [facility] Work Phone: Hyaline casts LM.LPF (Urine sed) [#/Area]on 03-02-2022 Hyaline casts (Urine sed) [#/Area] 0 /[LPF] 0-5 [facility] Work Phone: INR in Blood by Coagulation assayon 03-02-2022 INR Coag (Bld) [Relative time] 4.4 {INR} [facility] Work Phone: Comment on above: CRITICAL VALUE VERIF IED. CALLED TO [id number]/19/22 1559 Brie Ma.RESULTS READ BACK BY SAME . Ketones Test strip Ql (U)on 03-02-2022 Ketones Ql (U) 5 mg/dl Negative [facility] Work Phone: Laboratory - Chemistry and C hemistry - challengeon 03-02-2022 CO2 [Moles/Vol] 23.0 mmol/L 21.0-32.0 [facility] Work Phone: Urea nitrogen/Creatinine [Mass ratio] 16.9 mg/mg 10-20 [facility] Work Phone: Laboratory - Coagulationon 0 03-02-2022 PT Coag (PPP) [Time] 41.4 s 11.7-14.9 [facility] Work Phone: Laboratory - Hematology and Cell countson 03-02-2022 Erythrocyte distribution width (RBC) [Entitic vol] 41.4 fL 35.1-43.9 [facility] Work Phone: Erythrocyte distribution width (RBC) [Ratio] 14.0 % 11.6-14.6 [facility] Work Phone: Immature granulocytes/100 WBC (Bld) 1.400 % 0.0-0.9 [facility] Work Phone: Comment on above: IG% - Immature Granu locytes (promyelocytes, myelocytes and metamyelocytes) > 1% indicates that a LEFT SHIFT is Present. MCH (RBC) [Entitic mass] 26.8 pg 27.0-32.0 [facility] Work Phone: Nucleated RBC/100 WBC (Bld) [Ratio] 0 % 0-5 [facility] Work Phone: MCHC Auto (RBC) [Mass/Vol]on 03-02-2022 MCHC (RBC) [Mass/Vol] 32.5 g/dL 32-36 [facility] Work Phone: Mucus LM Ql (Urine sed)on Mucus Ql (Urine sed) 3+ /hpf [facility] Work Phone: Nitrite Test strip Ql (U)on 03-02-2022 Nitrite Ql (U) Negative Negative [facility] Work Phone: No Panel Informationon 03-02 Estimated Creatinine Clearance Calc 49.49 ml/min [facility] Work Phone: Estimated GFR (MDRD) Amer 60 mL/min >60 [facility] Work Phone: Comment on above: GFR Calc Estimated GFR (MDRD) Non-Af Amer 49 mL/min >60 [facility] Work Phone: Comment on above: Non- GFR Calc Troponin I High Sensitivity 11 pg/mL 3.0-78.0 [facility] Work Phone: Comment on above: Please Note: New Thania t Units and Gender Specific Reference Ranges. For more information see Policy Stat Procedure [place] High Sensitivity Troponin (TNIH) and attachments. Platelets bldon 03-02-2022 Platelets (Bld) [#/Vol] 269 10*3/uL 150-450 [facility] Work Phone: Protein Test strip Ql (U)on 03-02-2022 Protein Ql (U) 30 mg/dl Negative [facility] Work Phone: Serum or plasma calcium antoine urement (mass/volume)on 03-02-2022 Calcium [Mass/Vol] 9.4 mg/dL 8.5-10.1 [facility] Work Phone: Serum or plasma creatinine m easurement (mass/volume)on 03-02-2022 Creatinine [Mass/Vol] 1.48 mg/dL 0.70-1.30 [facility] Work Phone: Comment on above: The validity of the calculated GFR & GFRAA in patients over 70 years has not been determined. Clinical correlation is essential. Serum or plasma urea nitroge n measurement (mass/volume)on 03-02-2022 Urea nitrogen [Mass/Vol] 25 mg/dL 7-18 [facility] Work Phone: Squamous epithelial cells de tection in urine sediment by light microscopyon 03-02-2022 Epithelial cells.squamous LM Ql (Urine sed) 0-5 SEEN /hpf 0-5 [facility] Work Phone: Thin prep Papanicolaou smear with manual screeningon 03-02-2022 Thin prep Papanicolaou smear with manual screening 10 5-15 [facility] Work Phone: Urine blood detectionon 02-12 RBC Ql (U) 10 /ul Negative [facility] Work Phone: RBC Ql (U) 0-5 SEEN /hpf 0-5 [facility] Work Phone: Urine clarityon 03-02-2022 Clarity (U) Clear Clear [facility] Work Phone: Urine color determinationon 03-02-2022 Color (U) Yellow Yellow [facility] Work Phone: Urine glucose detectionon Glucose Ql (U) 50 mg/dl Normal [facility] Work Phone: Urine leukocyte esterase det ection by dipstickon 03-02-2022 Leukocyte esterase Test strip Ql (U) Negative Negative [facility] Work Phone: Urine pHon 03-02-2022 pH (U) 5.0 [pH] 5.0 - 8.0 [facility] Work Phone: Urine sediment bacteria coun t by microscopy (number/high power field)on 03-02-2022 Bacteria LM.HPF (Urine sed) [#/Area] 2 /[HPF] None Seen [facility] Work Phone: Urine specific gravity measu rementon 03-02-2022 Specific gravity (U) [Rel density] 1.025 1.002-1.03 0 [facility] Work Phone: Urobilinogen Auto test strip Ql (U)on 03-02-2022 Urobilinogen Ql (U) Normal mg/dl Normal [facility] Work Phone: ECHOon 01-09-2022 [facility] CNPNon 01-02-2022 CNPN Telephone (VICTORIANO) RICHARD ROY ([id number]) 1945 M Date Time Provider Department 01/02/22 JUSTINA MONIQUE During your visit today, we recorded the following information about you: Justina Garcia LPN 01/02/2022 7:43 AM Signed ----- Message from Justina Monique APRN.COMMUNICATIONS ENGINEERING TECHNICIAN sent at 01/02/2022 7:38 AM EDT ----- [...] Date Reviewed: 01/01/2022 Reviewed by: Justina Monique APRN.COMMUNICATIONS ENGINEERING TECHNICIAN - Fully Assessed Reason for Visit: Results [...] mouth once daily. - blood sugar diagnostic (SVXRUCH ULTRA TEST) test strip Test blood sugar(s) [...] Encounter Status:Closed by JUSTINA GARCIA on 01/02/22 [facility] CBC W Auto Differential pane l (Bld)on 01-01-2022 Abs Immature Gran 0.15 k/uL High <0.10 k/uL [facility] Basophils (Bld) [#/Vol] 0.06 10*3/uL <0.11 k/uL [facility] Basophils/100 WBC (Bld) 0.5 % C [facility] Differential cell count method Nom (Bld) Auto [facility] Eosinophils (Bld) [#/Vol] 0.39 10*3/uL <0.46 k/ uL [facility] Eosinophils/100 WBC (Bld) 3.1 % [facility] Erythrocyte distribution width (RBC) [Ratio] 14.5 % 11.5 - 15.0 % [facility] Hematocrit (Bld) [Volume fraction] 46.6 % 39.0 - 51.0 % [facility] Hemoglobin (Bld) [Mass/Vol] 14.5 g/dL 13.0 - 17.0 g/dL [facility] Immature Gran % 1.2 % [facility] Lymphocytes (Bld) [#/Vol] 1.81 10*3/uL 1. 00 - 4.00 k/uL [facility] Lymphocytes/100 WBC (Bld) 14.5 % [facility] MCH (RBC) [Entitic mass] 26.6 pg 26. 0 - 34.0 pg [facility] MCHC (RBC) [Mass/Vol] 31.1 g/dL 30.5 - 36.0 g/dL [facility] MCV (RBC) [Entitic vol] 85.3 fL 80.0 - 100.0 fL [facility] Monocytes (Bld) [#/Vol] 0.86 10*3/uL <0.87 k/uL [facility] Monocytes/100 WBC (Bld) 6.9 % [facility] Neutrophils (Bld) [#/Vol] 9.20 10*3/uL High 1. 45 - 7.50 k/uL [facility] Neutrophils/100 WBC (Bld) 73.8 % [facility] Nucleated RBC (Bld) [#/Vol] 10*3/uL <0.01 k/ uL [facility] Nucleated RBC/100 WBC (Bld) [Ratio] 0.0 /100 WBC [facility] Platelet mean volume (Bld) [Entitic vol] 9.7 fL 9.0 - 12.7 fL [facility] Platelets (Bld) [#/Vol] 287 10*3/uL 150 - 400 k/uL [facility] RBC (Bld) [#/Vol] 5.46 10*6/uL 4.20 - 6.00 m/uL [facility] WBC (Bld) [#/Vol] 12.47 10*3/uL High 3.70 - 11.00 k/uL [facility] Comprehensive metabolic 2000 panelon 01-01-2022 Albumin [Mass/Vol] 4.2 g/dL 3.9 - 4.9 g/dL [facility] ALP [Catalytic activity/Vol] 96 U/L 38 - 113 U/L [facility] ALT [Catalytic activity/Vol] 29 U/L 10 - 54 U/L [facility] Anion gap [Moles/Vol] 12 mmol/L 9 - 18 mmol/L [facility] AST [Catalytic activity/Vol] 20 U/L 14 - 40 U/L [facility] Bilirubin [Mass/Vol] 0.6 mg/dL 0.2 - 1 .3 mg/dL [facility] Calcium [Mass/Vol] 9.4 mg/dL 8.5 - 10. 2 mg/dL [facility] Chloride [Moles/Vol] 101 mmol/L 97 - 10 5 mmol/L [facility] CO2 [Moles/Vol] 25 mmol/L 22 - 30 mmol/L [facility] Creatinine [Mass/Vol] 1.20 mg/dL 0.73 - 1.22 mg/dL [facility] Estimated Glomerular Filtration Rate 63 mL/min/1.73m >=60 mL/min/1.7 3m [facility] Glucose [Mass/Vol] 118 mg/dL High 74 - 99 mg/dL [facility] Potassium [Moles/Vol] 4.4 mmol/L 3.7 - 5.1 mmol/L [facility] Protein [Mass/Vol] 6.6 g/dL 6.3 - 8.0 g/dL [facility] Sodium [Moles/Vol] 138 mmol/L 136 - 144 mmol/L [facility] Urea nitrogen [Mass/Vol] 15 mg/dL 9 - 24 mg/dL [facility] PSA/PROSTSPECAG SCRNon 01-01 Prostate specific Ag [Mass/Vol] 1.75 ng/mL <2.60 ng/mL [facility] UA DIP, URINE (POC)on 2021 BILIRUBIN UA (POCT) Negative Negative [facility] CLARITY UA (POCT) Clear [facility] COLOR UA (POCT) Dark yellow [facility] d [facility] GLUCOSE UA (POCT) 100 mg/dL Abnormal Negative mg/dL [facility] HEMOGLOBIN/BLOOD UA (POCT) Trace-intact Abnormal Negativ e [facility] KETONE UA (POCT) Negative Negative mg/dL [facility] LEUKOCYTES UA (POCT) Negative Negative [facility] NITRITE UA (POCT) Negative Negative [facility] PH UA (POCT) 5.5 4.5 - 8.0 [facility] Protein Ql (U) 30 mg/dL Abnormal Negative mg/dL [facility] SPECIFIC GRAVITY UA (POCT) >=1.030 1 .005 - 1.030 [facility] UROBILINOGEN UA (POCT) 1.0 E.U./dL Lanette l E.U./dL [facility] VITAMIN B12 BLOODon 01-02-20 Cobalamin (Vitamin B12) [Mass/Vol] 377 pg/mL 232-1,245 pg/mL [facility] Absolute lymphocyte counton 12-29-2021 Lymphocytes Auto (Unsp spec) [#/Vol] 1.56 10*3/uL 0.83-4.51 [facility] Work Phone: BCIDon 12-29-2021 Acinetobacter justen-baumanii complex Not detected Normal Not Detected [facility] [place] Comment on above: Performed By: #### B JIN #### [place] [address] Bacteroides fragilis Not detected Normal Not Detected [facility] [place] Comment on above: Performed By: #### B JIN #### [place] [address] BCID Comment See Comment Normal [facility] [place] Comment on above: Result Comment: Anti microbial [...] follow. Performed By: #### B JIN #### [place] [address] Kellie albicans Not detected Normal Not Detected [facility] ([place] Comment on above: Performed By: #### B JIN #### [facility] [address] [place] [address] Kellie auris Not detected Normal Not Detected [facility] ([place]) Comment on above: Performed By: #### B JIN #### [facility] [address] [place] [address] Kellie glabrata Not detected Normal Not Detected [facility] ([place] Comment on above: Performed By: #### B JIN #### [facility] [address] [place] [address] Kellie krusei Not detected Normal Not Detected [facility] ([place] Comment on above: Performed By: #### B JIN #### [place] [address] Kellie parapsilosis Not detected Normal Not Detected [facility] ([place] Comment on above: Performed By: #### B JIN #### [place] [address] Kellie tropicalis Not detected Normal Not Detected [facility] ([place] Comment on above: Performed By: #### B JIN #### [place] [address] Cryptococcus neoformans-gattii Not detected Normal Not Detected [facility] ([place] Comment on above: Performed By: #### B JIN #### [place] [address] CTX-M (ESBL) Not Applicable Normal Not Detected [facility] ([place] Comment on above: Performed By: #### B JIN #### [place] [address] E. Coli Not detected Normal Not Detected [facility] ([place] Comment on above: Performed By: #### B JIN #### [facility] [address] [place] [address] Enterobacter cloacae Complex Not detected Normal Not Detected [facility] ([place] Comment on above: Performed By: #### B JIN #### [facility] [address] [place] [address] Enterobacterales Not detected Normal Not Detected [facility] ([place]) Comment on above: Performed By: #### B JIN #### [place] [address] Enterococcus faecalis Not detected Normal Not Detected [facility] ([place]) Comment on above: Performed By: #### B JIN #### [facility] [address] [place] [address] Enterococcus faecium Not detected Normal Not Detected [facility] ([place]) Comment on above: Performed By: #### B JIN #### [place] [address] Haemophilus influenzae Not detected Normal Not Detected [facility] ([place]) Comment on above: Performed By: #### B JIN #### [place] [address] IMP (Carbapenemase) Not Applicable Normal Not Detected [facility] ([place]) Comment on above: Performed By: #### B JIN #### [place] [address] Klebsiella aerogenes Not detected Normal Not Detected [facility] ([place]) Comment on above: Performed By: #### B JIN #### [place] [address] Klebsiella oxytoca Not detected Normal Not Detected [facility] ([place]) Comment on above: Performed By: #### B JIN #### [place] [address] Klebsiella pneumoniae group Not detected Normal Not Detected [facility] ([place]) Comment on above: Performed By: #### B JIN #### [place] [address] KPC (Carbapenemase) Not Applicable Normal Not Detected [facility] ([place]) Comment on above: Performed By: #### B JIN #### [place] [address] Listeria monocytogenes Not detected Normal Not Detected [facility] ([place]) Comment on above: Performed By: #### B JIN #### [place] [address] MCR-1 (Colistin Resistance) Not Applicable Normal Not Detected [facility] ([place]) Comment on above: Performed By: #### B JIN #### [place] [address] Mec A/C Detected Abnormal Not Detected [facility] ([place]) Comment on above: Performed By: #### B JIN #### [facility] [address] [place] [address] Mec A/C-MREJ (MRSA) Not Applicable Normal Not Detected [facility] ([place]) Comment on above: Performed By: #### B JIN #### [facility] [address] [place] [address] NDM (Carbapenemase) Not Applicable Normal Not Detected [facility] ([place]) Comment on above: Performed By: #### B JIN #### [facility] [address] [place] [address] Neisseria meningitidis (Encapsalated) Not detected Normal Not Detected [facility] ([place]) Comment on above: Performed By: #### B JIN #### [place] [address] OXA-48 like (Carbapenemase) Not Applicable Normal Not Detected [facility] ([place] Comment on above: Performed By: #### B JIN #### [place] [address] Proteus Not detected Normal Not Detected [facility] ([place]) Comment on above: Performed By: #### B JIN #### [place] [address] Pseudomonas aeruginosa Not detected Normal Not Detected [facility] ([place]) Comment on above: Performed By: #### B JIN #### [place] [address] S. agalactiae Org specific cx Ql (Vag fld) Not detected Normal Not Detected [facility] ([place]) Comment on above: Performed By: #### B JIN #### [facility] [address] [place] [address] Salmonella species Not detected Normal Not Detected [facility] ([place]) Comment on above: Performed By: #### B JIN #### [place] [address] Serratia marcescens Not detected Normal Not Detected [facility] ([place]) Comment on above: Performed By: #### B JIN #### [address] [address] Staphylococcus Detected Abnormal Not Detected [facility] ([place]) Comment on above: Performed By: #### B JIN #### [address] [address] Staphylococcus aureus Not detected Normal Not Detected [facility] ([place]) Comment on above: Result Comment: If S taphylococcus aureus is Detected, an Infectious Disease physician consult is required on identification. Performed By: #### B JIN #### [place] [address] Staphylococcus epidermidis Detected Abnormal N ot Detected [facility] ([place]) Comment on above: Performed By: #### B JIN #### [place] [address] Staphylococcus lugdunensis Not detected Normal N ot Detected [facility] ([place]) Comment on above: Performed By: #### B JIN #### [place] [address] Stenotropomonas maltophilia Not detected Normal Not Detected [facility] ([place] Comment on above: Performed By: #### B JIN #### [place] [address] Streptococcus Not detected Normal Not Detected [facility] ([place] Comment on above: Performed By: #### B JIN #### [address] [address] Streptococcus pneumoniae Not detected Normal Not Detected [facility] ([place] Comment on above: Performed By: #### B JIN #### [place] [address] Streptococcus pyogenes Not detected Normal Not Detected [facility] ([place] Comment on above: Performed By: #### B JIN #### [place] [id number] Van A/B Not Applicable Normal Not Detected [facility] ([place] Comment on above: Performed By: #### B JIN #### [address] [address] VIM (Carbapenemase) Not Applicable Normal Not Detected [facility] ([place]) Comment on above: Performed By: #### B JIN #### [facility] [address] [place] [address] Basophil percentageon 2021 Basophils/100 WBC (Bld) 0.3 % 0-1 [facility] Work Phone: Chloride [Moles/Vol] 108 mmol/L 98-107 [facility] Work Phone: Eosinophils/100 WBC (Bld) 3.2 % 0-5 [facility] Work Phone: [phone] Glucose [Mass/Vol] 109 mg/dL 74-106 [facility] Work Phone: Comment on above: Fasting Glucose resu lt from 100 to 125 mg/dL suggests IMPAIRED HOMEOSTASIS per A.D.A. criteria. Neutrophils (Bld) [#/Vol] 6.6 10*3/uL 2.0-7.7 [facility] Work Phone: Neutrophils/100 WBC (Bld) 70.4 % 47-70 [facility] Work Phone: Potassium [Moles/Vol] 4.1 mmol/L 3.5-5.1 [facility] Work Phone: Sodium [Moles/Vol] 140 mmol/L 136-145 [facility] Work Phone: WBC (Bld) [#/Vol] 9.4 10*3/uL 4.4-11.0 [facility] Work Phone: Blood erythrocytes count (nu mber/volume)on 12-29-2021 RBC (Bld) [#/Vol] 4.61 10*6/uL 4.6-6.2 [facility]: Blood hemoglobin measurement (mass/volume)on 12-29-2021 Hemoglobin (Bld) [Mass/Vol] 12.4 g/dL 13.0-16. 5 [facility] Work Phone: Blood lymphocytes/100 leukoc yteson 12-29-2021 Lymphocytes/100 WBC (Bld) 16.7 % 19-41 [facility] Work Phone: [phone] Blood monocytes/100 leukocyt eson 12-29-2021 Monocytes/100 WBC (Bld) 8.7 % 0-10 [facility] Work Phone: Blood platelet mean volumeon 12-29-2021 Platelet mean volume (Bld) [Entitic vol] 9.3 fL 6.2-12.0 [facility] Work Phone: Determination of erythrocyte mean corpuscular volume (MCV)on 12-29-2021 MCV (RBC) [Entitic vol] 82.9 fL 80-94 [facility] Work Phone: Glucose Glucometer (BldC) [M ass/Vol]on 12-29-2021 Glucose [Mass/Vol] 129 mg/dL 74-106 [facility] Work Phone: Comment on above: MANAGEMENT OF PATIEN T CARE PER NURSING PROTOCOL Hematocrit Auto (Bld) [Volum e fraction]on 12-29-2021 Hematocrit (Bld) [Volume fraction] 38.2 % 40-54 [facility] Work Phone: Laboratory - Chemistry and C hemistry - challengeon 12-29-2021 CO2 [Moles/Vol] 27.0 mmol/L 21.0-32.0 [facility] Work Phone: Urea nitrogen/Creatinine [Mass ratio] 16.5 mg/mg 10-20 [facility] Work Phone: Laboratory - Hematology and Cell countson 12-29-2021 Erythrocyte distribution width (RBC) [Entitic vol] 42.5 fL 35.1-43.9 [facility] Work Phone: Erythrocyte distribution width (RBC) [Ratio] 14.2 % 11.6-14.6 [facility] Work Phone: Immature granulocytes/100 WBC (Bld) 0.700 % 0.0-0.9 [facility] Work Phone: Comment on above: IG% - Immature Granu locytes (promyelocytes, myelocytes and metamyelocytes) > 1% indicates that a LEFT SHIFT is Present. MCH (RBC) [Entitic mass] 26.9 pg 27.0-32.0 [facility] Work Phone: Nucleated RBC/100 WBC (Bld) [Ratio] 0 % 0-5 [facility] Work Phone: MCHC Auto (RBC) [Mass/Vol]on 12-29-2021 MCHC (RBC) [Mass/Vol] 32.5 g/dL 32-36 [facility] Work Phone: No Panel Informationon 12-29 Estimated Creatinine Clearance Calc 71.11 ml/min [facility] Work Phone: Estimated GFR (MDRD) Amer 91 mL/min >60 [facility] Work Phone: Comment on above: GFR Calc Estimated GFR (MDRD) Non-Af Amer 75 mL/min >60 [facility] Work Phone: Comment on above: Non- GFR Calc Platelets bldon 12-29-2021 Platelets (Bld) [#/Vol] 177 10*3/uL 150-450 [facility] Work Phone: Serum or plasma calcium antoine urement (mass/volume)on 12-29-2021 Calcium [Mass/Vol] 8.4 mg/dL 8.5-10.1 [facility] Work Phone: Serum or plasma creatinine m easurement (mass/volume)on 12-29-2021 Creatinine [Mass/Vol] 1.03 mg/dL 0.70-1.30 [facility] Work Phone: Comment on above: The validity of the calculated GFR & GFRAA in patients over 70 years has not been determined. Clinical correlation is essential. Serum or plasma urea nitroge n measurement (mass/volume)on 12-29-2021 Urea nitrogen [Mass/Vol] 17 mg/dL 7-18 [facility] Work Phone: Thin prep Papanicolaou smear with manual screeningon 12-29-2021 Thin prep Papanicolaou smear with manual screening 5 5-15 [facility] Work Phone: Basophil percentageon 2021 Lactate [Moles/Vol] 1.9 mmol/L 0.4-2.0 [facility] Work Phone: COon 12-28-2021 Carbon Monoxide Level See Comments Normal A [facility] ([place] Comment on above: Order Comment: See S eparate Report Performed By: #### L IP, MG, TROPHS, CK, LAC, GFR, CO, CMP ####[address] [address] Laboratory - Chemistry and C hemistry - challengeon 12-28-2021 Magnesium [Mass/Vol] 1.8 mg/dL 1.6-2.6 [facility] Work Phone: No Panel Informationon 12-28 Troponin I High Sensitivity 23 pg/mL 3.0-78.0 [facility] Work Phone: Comment on above: Please Note: New Thania t Units and Gender Specific Reference Ranges. For more information see Policy Stat Procedure [place] High Sensitivity Troponin (TNIH) and attachments. .Auto Diffon 12-27-2021 Basophil, Absolute 0.1 10 3/mcL Normal 0.0-0.2 [facility] ([place] Comment on above: Performed By: #### L IP, MG, TROPHS, CK, LAC, GFR, CO, CMP #### [address] [address] Basophils/100 WBC (Bld) 0.4 % Normal 0.0-2.5 A [facility] ([place] Comment on above: Performed By: #### L IP, MG, TROPHS, CK, LAC, GFR, CO, CMP #### [address] [address] Eosinophil, Absolute 0.1 10 3/mcL Normal 0.0-0.4 [facility] ([place] Comment on above: Performed By: #### L IP, MG, TROPHS, CK, LAC, GFR, CO, CMP #### [address] [place] [address] Eosinophils/100 WBC (Bld) 0.7 % Normal 0.0-7.0 [facility] ([place] Comment on above: Performed By: #### L IP, MG, TROPHS, CK, LAC, GFR, CO, CMP #### [address] [address] Lymphocyte, Absolute 1.4 10 3/mcL Normal 0.8-3.9 [facility] ([place] Comment on above: Performed By: #### L IP, MG, TROPHS, CK, LAC, GFR, CO, CMP #### [address] [address] Lymphocytes/100 WBC (Bld) 9.6 % Low 10.0-50.0 [facility] ([place] Comment on above: Performed By: #### L IP, MG, TROPHS, CK, LAC, GFR, CO, CMP #### [address] [address] Monocyte, Absolute 0.8 10 3/mcL Normal 0.2-1.0 [facility] ([place] Comment on above: Performed By: #### L IP, MG, TROPHS, CK, LAC, GFR, CO, CMP #### [address] [address] Monocytes/100 WBC (Bld) 5.3 % Normal 1.7-13.0 A [facility] ([place] Comment on above: Performed By: #### L IP, MG, TROPHS, CK, LAC, GFR, CO, CMP #### [address] [address] Neutrophils/100 WBC (Bld) 84.0 % High 37.0-80.0 [facility] ([place] Comment on above: Performed By: #### L IP, MG, TROPHS, CK, LAC, GFR, CO, CMP #### [address] [address] .GFRon 12-27-2021 GFR 43 ml/min/1.73sqm Normal [facility] ([place] Comment on above: Result Comment: GFR Population [...] CK, LAC, GFR, CO, CMP ####[place] [address] [place], [place] [address] GFR Non- 35 ml/min/1.73sqm Normal [facility] ([place] Comment on above: Result Comment: GFR Population [...] TROPHS, CK, LAC, GFR, CO, CMP ####[place] [address] [place], [place] [address] .MDWon 12-27-2021 Monocyte Distribution Width 15.91 Normal 0.00-20. 00 [facility] ([place] Comment on above: Result Comment: For ED adult patients suspected of sepsis, MDW<=20.0 does not rule out sepsis or risk of sepsis Performed By: #### L IP, MG, TROPHS, CK, LAC, GFR, CO, CMP ####[place] [place], [place] [address] .NEUABSon 12-27-2021 Neutrophil, Absolute 12.6 10 3/mcL High 2.9-6.2 A [facility] ([place] Comment on above: Performed By: #### L IP, MG, TROPHS, CK, LAC, GFR, CO, CMP ####[address] [place], [place] [address] Basophil percentageon 2021 Basophil percentage 3.8 mg/dL 2.5-4.9 [facility] Work Phone: Bilirubin [Mass/Vol] 0.80 mg/dL 0.20-1.00 [facility] Work Phone: Comment on above: For patients on eltr ombopag therapy, use of Dimension [place] TBIL is not recommended. Protein [Mass/Vol] 6.3 g/dL 6.4-8.2 [facility] Work Phone: CBCon 12-27-2021 Erythrocyte distribution width (RBC) [Ratio] 14.9 % High 11.5-14.5 [facility] ([place] Comment on above: Performed By: #### L IP, MG, TROPHS, CK, LAC, GFR, CO, CMP #### [place] [address] [address] Hematocrit (Bld) [Volume fraction] 43.2 % Normal 42.0-52.0 [facility] ([place] Comment on above: Performed By: #### L IP, MG, TROPHS, CK, LAC, GFR, CO, CMP #### [address] [address] Hgb 14.4 G/dL Normal 14.0-18.0 [facility] ([place] Comment on above: Performed By: #### L IP, MG, TROPHS, CK, LAC, GFR, CO, CMP #### [place] [address] [place], [place] [address] MCH (RBC) [Entitic mass] 26.8 pg Low 27.0-31.2 [facility] ([place] Comment on above: Performed By: #### L IP, MG, TROPHS, CK, LAC, GFR, CO, CMP #### [address] [address] MCHC 33.4 G/dL Normal 31.8-35.4 [facility] ([place] Comment on above: Performed By: #### L IP, MG, TROPHS, CK, LAC, GFR, CO, CMP #### [address] [address] MCV (RBC) [Entitic vol] 80.2 fL Normal 80.0-94.0 A [facility] ([place] Comment on above: Performed By: #### L IP, MG, TROPHS, CK, LAC, GFR, CO, CMP #### [address] [address] Platelet 305 10 3/mcL Normal 130-400 [facility] ([place] Comment on above: Performed By: #### L IP, MG, TROPHS, CK, LAC, GFR, CO, CMP #### [address] [address] Platelet mean volume (Bld) [Entitic vol] 7.5 fL Normal 7.4-10.4 [facility] ([place] Comment on above: Performed By: #### L IP, MG, TROPHS, CK, LAC, GFR, CO, CMP #### [address] [address] RBC 5.39 10 6/mcL Normal 4.04-6.13 [facility] ([place] Comment on above: Performed By: #### L IP, MG, TROPHS, CK, LAC, GFR, CO, CMP #### [address] [address] WBC 15.0 10 3/mcL High 4.6-10.8 [facility] ([place] Comment on above: Performed By: #### L IP, MG, TROPHS, CK, LAC, GFR, CO, CMP #### [address], [place] [address] CKon 12-27-2021 CK [Catalytic activity/Vol] 220 U/L Normal 39-308 [facility] ([place] Comment on above: Performed By: #### L IP, MG, TROPHS, CK, LAC, GFR, CO, CMP ####[place] [place], [place] [address] CMPon 12-27-2021 Albumin Level 3.8 G/dL Normal 3.4-4.8 [facility] ([place] Comment on above: Performed By: #### L IP, MG, TROPHS, CK, LAC, GFR, CO, CMP ####[place] [address] [place], [place] [address] Albumin/Globulin [Mass ratio] 1.4 {ratio} Normal 1.1-2.5 [facility] ([place] Comment on above: Performed By: #### L IP, MG, TROPHS, CK, LAC, GFR, CO, CMP ####[address] [place], [place] [address] ALP [Catalytic activity/Vol] 105 U/L Normal 40-135 [facility] ([place] Comment on above: Performed By: #### L IP, MG, TROPHS, CK, LAC, GFR, CO, CMP ####[place] [place], [place] [address] ALT [Catalytic activity/Vol] 20 U/L Normal 16-63 [facility] ([place] Comment on above: Performed By: #### L IP, MG, TROPHS, CK, LAC, GFR, CO, CMP ####[place] [address] [place], [place] [address] AST [Catalytic activity/Vol] 16 U/L Normal 10-40 [facility] ([place] Comment on above: Performed By: #### L IP, MG, TROPHS, CK, LAC, GFR, CO, CMP ####[place] [place], [place] [address] Bili Total 0.8 mg/dL Normal 0.2-1.0 [facility] ([place] Comment on above: Result Comment: Use of this assay is not recommended for patients undergoing treatment with eltrombopag due to the potential for falsely elevated results. Performed By: #### L IP, MG, TROPHS, CK, LAC, GFR, CO, CMP ####[place] [place], [place] [address] BUN/Creatinine Ratio 12 ratio Normal 7-27 [facility] ([place] Comment on above: Performed By: #### L IP, MG, TROPHS, CK, LAC, GFR, CO, CMP ####[place] [place], [place] [address] Calcium [Mass/Vol] 9.4 mg/dL Normal 8.4-10.2 [facility] ([place] Comment on above: Performed By: #### L IP, MG, TROPHS, CK, LAC, GFR, CO, CMP ####[place] [place], [place] [address] Chloride [Moles/Vol] 104 mmol/L Normal 98-107 [facility] ([place] Comment on above: Performed By: #### L IP, MG, TROPHS, CK, LAC, GFR, CO, CMP ####[place] [place], [place] [address] CO2 [Moles/Vol] 22 mmol/L Low 23-31 [facility] ([place] Comment on above: Performed By: #### L IP, MG, TROPHS, CK, LAC, GFR, CO, CMP ####[place] [place], [place] [address] Creatinine [Mass/Vol] 1.88 mg/dL High 0.70-1.30 [facility] ([place]) Comment on above: Performed By: #### L IP, MG, TROPHS, CK, LAC, GFR, CO, CMP ####[place] [place], [place] [address] Electrolyte Balance 13.0 mEq/L Normal 4.0-15.0 [facility] ([place]) Comment on above: Performed By: #### L IP, MG, TROPHS, CK, LAC, GFR, CO, CMP ####[address] [place], [place] [address] Globulin 2.8 G/dL Normal [facility] ([place] Comment on above: Performed By: #### L IP, MG, TROPHS, CK, LAC, GFR, CO, CMP ####[place] [place], [place] [address] Glucose [Mass/Vol] 205 mg/dL High 83-110 [facility] ([place] Comment on above: Performed By: #### L IP, MG, TROPHS, CK, LAC, GFR, CO, CMP ####[place] [address] [place], [place] [address] Potassium [Moles/Vol] 5.2 mmol/L High 3.5-5.1 [facility] ([place] Comment on above: Performed By: #### L IP, MG, TROPHS, CK, LAC, GFR, CO, CMP ####[place] [place], [place] [address] Sodium [Moles/Vol] 139 mmol/L Normal 136-145 [facility] ([place] Comment on above: Performed By: #### L IP, MG, TROPHS, CK, LAC, GFR, CO, CMP ####[address] [place], [place] [address] Total Protein 6.6 G/dL Normal 6.4-8.2 [facility] ([place] Comment on above: Performed By: #### L IP, MG, TROPHS, CK, LAC, GFR, CO, CMP ####[place] [address] [place], [place] [address] Urea nitrogen [Mass/Vol] 23 mg/dL High 7-18 [facility] ([place] Comment on above: Performed By: #### L IP, MG, TROPHS, CK, LAC, GFR, CO, CMP ####[place] [place], [place] [address] [id number] 12-27-2021 Date of Onset [id number] Invalid Interpretation Code [facility] ([place] Comment on above: Performed By: #### C OVD19, FLURSV #### [place] [address] Employed in Healthcare No [facility] ([place] Comment on above: Performed By: #### C OVD19, FLURSV #### [place] [address] First Test No [facility] ([place] Comment on above: Performed By: #### C OVD19, FLURSV #### [place] [address] Hospitalized No [facility] ([place] Comment on above: Performed By: #### C OVD19, FLURSV #### [place] [address] ICU No [facility] [place] Comment on above: Performed By: #### C OVD19, FLURSV #### [place] [address] Not [facility] [place] Comment on above: Performed By: #### C OVD19, FLURSV #### [place] [address] Resides in Congregate Care Setting No [facility] [place] Comment on above: Performed By: #### C OVD19, FLURSV #### [place] [address] SARS-CoV-2 (COVID-19) RNA ANGELY+probe Ql (Unsp spec) Positive Abnormal Negative [facility] ([place] Comment on above: Performed By: #### C OVD19, FLURSV #### [place] [address] SARS-CoV-2 (COVID-19) RNA ANGELY+probe Ql (Unsp spec) [facility] ([place] Comment on above: Result Comment: Posi tive results are indicative of the presence of SARS-CoV-2 RNA; clinical correlation with patient history and other diagnostic information is necessary to determine patient infection status. Positive results do not rule out bacterial infection or co-infection with other viruses. The agent detected may not be the definite cause of disease. Laboratories within the [place] and its territories are required to report [...] or from non-specific signals in the assay. [employer] SARS-CoV-2 Assay is a Real-Time reverse-transcriptase polymerase [...] Performed By: #### C OVD19, FLURSV #### [address] [address] Symptomatic as Defined by CDC No Normal [facility] ([place] Comment on above: Performed By: #### C OVD19, FLURSV #### [address] [address] [address] HEAD OR BRAIN W/O CONTRAS Ton [...] Ordering Provider: SREEDHAR LINARES Normal [facility] ([place] Carboxyhemoglobinon 12-28-19 Carboxyhemoglobin (Bld) [Mass/Vol] 1.9 % 0.0-1.5 [facility] Work Phone: Comment on above: * NON-SMOKER RANGE 1 .6 - 5.0% * LIGHT SMOKER RANGE 5.1 - 9.0% * HEAVY SMOKER RANGE FLURSVon 12-27-2021 Flu A PCR (AO) Negative Normal Negative [facility] ([place] Comment on above: Result Comment: Posi tive [...] virus (RSV) nucleic acid in nasopharyngeal swab (MASTER SCHEDULER) specimens from patients with signs and symptoms of respiratory infection in conjunction with clinical and laboratory findings. The test is intended for use as an aid in the differential diagnosis of influenza A virus, influenza B virus, and RSV in humans and is not intended to detect influenza C. Performed By: #### C OVD19, FLURSV #### [place] [address] [place], [place] [address] Flu B PCR (AO) Negative Normal Negative [facility] ([place] Comment on above: Result Comment: Posi tive [...] REPEAT COLLECTION AND TESTING IS RECOMMENDED. [employer] Flu A/B & RSV Assay is a real-time polymerase chain reaction (PCR) based qualitative in vitro diagnostic test for the direct detection and differentiation of influenza A virus, influenza B virus, and respiratory syncytial virus (RSV) nucleic acid in nasopharyngeal swab (MASTER SCHEDULER) specimens from patients with signs and symptoms of respiratory infection in conjunction with clinical and laboratory findings. The test is intended for use as an aid in the differential diagnosis of influenza A virus, influenza B virus, and RSV in humans and is not intended to detect influenza C. Performed By: #### C OVD19, FLURSV #### [place] [id number] [place], [place] [address] RSV PCR (AO) Negative Normal Negative [facility] ([place] Comment on above: Result Comment: Posi tive [...] REPEAT COLLECTION AND TESTING IS RECOMMENDED. [employer] Flu A/B & RSV Assay is a real-time polymerase chain reaction (PCR) based qualitative in vitro diagnostic test for the direct detection and differentiation of influenza A virus, influenza B virus, and respiratory syncytial virus (RSV) nucleic acid in nasopharyngeal swab (MASTER SCHEDULER) specimens from patients with signs and symptoms of respiratory infection in conjunction with clinical and laboratory findings. The test is intended for use as an aid in the differential diagnosis of influenza A virus, influenza B virus, and RSV in humans and is not intended to detect influenza C. Performed By: #### C OVD19, FLURSV #### [place] [address] [place], [place] [address] INR in Blood by Coagulation assayon 12-27-2021 INR Coag (Bld) [Relative time] 2.4 {INR} [facility] [facility] Work Phone: LABORATORYOrdered By: Ramiro Rascon [...] definite cause of disease. Laboratories within the [facility] and its territories are required to report [...] Lvl 3.0 mmol/L High 0.4-2.0 [facility] ([place]) Comment on above: Performed By: #### L AC #### [facility] [address] [place], [place] [address] Lactic Acid Lvl 4.6 mmol/L High 0.4-2.0 [facility] ([place]) Comment on above: Performed By: #### L IP, MG, TROPHS, CK, LAC, GFR, CO, CMP ####Abbey [address] [place], [place] [address] LIPon 12-27-2021 Lipase Level 67 U/L Low 73-393 [facility] ([place]) Comment on above: Performed By: #### L IP, MG, TROPHS, CK, LAC, GFR, CO, CMP ####Abbey [address] [place], [place] [address] Laboratory - Chemistry and C hemistry - challengeon 12-27-2021 ALP [Catalytic activity/Vol] 89 U/L 45-117 [facility] Work Phone: ALT [Catalytic activity/Vol] 26 U/L 16-61 [facility] Work Phone: Globulin (S) [Mass/Vol] 3.1 g/dL 2.2-4.2 [facility] Work Phone: Laboratory - Coagulationon 0 12-27-2021 PT Coag (PPP) [Time] 25.5 s 11.7-14.9 [facility] Work Phone: MGon 12-27-2021 Magnesium [Mass/Vol] 1.3 mg/dL Low 1.8-2.4 [facility] ([place]) Comment on above: Performed By: #### L IP, MG, TROPHS, CK, LAC, GFR, CO, CMP ####[address] [address] [address] PROon 12-27-2021 INR Coag (PPP) [Relative time] 2.7 {INR} High 0.9-1.2 [facility] ([place]) Comment on above: Result Comment: Tony dard Dose 2.0 - 3.0 High Dose 2.5 - 3.5 The recommended therapeutic range for oral anticoagulant therapy is: LOW RISK: Prophylaxis of venous thrombosis INR: 2.0 - 3.0 Treatment of pulmonary embolism 2.0 - 3.0 Prevention of systemic embolism 2.0 - 3.0 HIGH RISK: Mechanical prosthetic valves 2.5 - 3.5 Performed By: #### P RO #### Abbey [address] [address] PT Coag (PPP) [Time] 31.6 s High 9.7-14.3 [facility] ([place]) Comment on above: Performed By: #### P RO #### Abbey [address] [address] Serum or plasma albumin antoine urement (mass/volume)on 12-27-2021 Albumin [Mass/Vol] 3.2 g/dL 3.2-5.0 [facility] Work Phone: Serum or plasma albumin/glob ulin mass ratioon 12-27-2021 Albumin/Globulin [Mass ratio] 1.0 {ratio} 0.9-2.4 [facility] Work Phone: TROPHSon 12-27-2021 Troponin I High Sensitivity 11.1 ng/L Normal 0.0-76.2 [facility] ([place]) Comment on above: Performed By: #### L IP, MG, TROPHS, CK, LAC, GFR, CO, CMP #### [place] [id number] [place], [place] [address] Thin prep Papanicolaou smear with manual screeningon 12-27-2021 Thin prep Papanicolaou smear with manual screening 44 U/L 15-37 [facility] Work Phone: XR CHEST 1 VIEWon 12-27-2021 [...] 12/27/2021 6:23:59 PM Ordering Provider: SREEDHAR LINARES Normal [facility] ([place]) Absolute lymphocyte counton 12-06-2021 Lymphocytes Auto (Unsp spec) [#/Vol] 0.42 10*3/uL 0.83-4.51 [facility] Work Phone: Basophil percentageon 2021 Basophils/100 WBC (Bld) 0.4 % 0-1 [facility] Work Phone: Chloride [Moles/Vol] 105 mmol/L 98-107 [facility] Work Phone: Eosinophils/100 WBC (Bld) 2.3 % 0-5 [facility] Work Phone: Glucose [Mass/Vol] 138 mg/dL 74-106 [facility] Work Phone: Comment on above: Fasting Glucose resu lt greater than or equal to 126 mg/dL suggests DIABETES MELLITUS per A.D.A. criteria. Neutrophils (Bld) [#/Vol] 7.5 10*3/uL 2.0-7.7 [facility] Work Phone: [phone] Neutrophils/100 WBC (Bld) 81.2 % 47-70 [facility] Work Phone: Potassium [Moles/Vol] 3.7 mmol/L 3.5-5.1 [facility] Work Phone: Sodium [Moles/Vol] 138 mmol/L 136-145 [facility] Work Phone: WBC (Bld) [#/Vol] 9.3 10*3/uL 4.4-11.0 [facility] Work Phone: Basophil percentage 0-5 SEEN /hpf 0-5 [facility] Work Phone: Bilirubin Test strip Ql (U)o n 12-06-2021 Bilirubin Ql (U) Negative Negative [facility] Work Phone: Blood erythrocytes count (nu mber/volume)on 12-06-2021 RBC (Bld) [#/Vol] 5.07 10*6/uL 4.6-6.2 [facility] Work Phone: Blood hemoglobin measurement (mass/volume)on 12-06-2021 Hemoglobin (Bld) [Mass/Vol] 13.8 g/dL 13.0-16. 5 [facility] Work Phone: Blood lymphocytes/100 leukoc yteson 12-06-2021 Lymphocytes/100 WBC (Bld) 4.5 % 19-41 [facility] Work Phone: Blood manual differential co mment interpretation (narrative result)on 12-06-2021 Manual differential comment Ori (Bld) [Interp] SCANNED [facility] Work Phone: Comment on above: LYMPHOPENIA NOTED Blood monocytes/100 leukocyt eson 12-06-2021 Monocytes/100 WBC (Bld) 8.6 % 0-10 [facility] Work Phone: Blood platelet mean volumeon 12-06-2021 Platelet mean volume (Bld) [Entitic vol] 9.2 fL 6.2-12.0 [facility] Work Phone: Determination of erythrocyte mean corpuscular volume (MCV)on 12-06-2021 MCV (RBC) [Entitic vol] 83.0 fL 80-94 [facility] Work Phone: Hematocrit Auto (Bld) [Volum e fraction]on 12-06-2021 Hematocrit (Bld) [Volume fraction] 42.1 % 40-54 [facility] Work Phone: INR in Blood by Coagulation assayon 12-06-2021 INR Coag (Bld) [Relative time] 3.3 {INR} [facility] Work Phone: Ketones Test strip Ql (U)on 12-06-2021 Ketones Ql (U) 5 mg/dl Negative [facility] Work Phone: Laboratory - Chemistry and C hemistry - challengeon 12-06-2021 CO2 [Moles/Vol] 24.0 mmol/L 21.0-32.0 [facility] Work Phone: Urea nitrogen/Creatinine [Mass ratio] 14.2 mg/mg 10-20 [facility] Work Phone: Laboratory - Coagulationon 0 12-06-2021 PT Coag (PPP) [Time] 32.9 s 11.7-14.9 [facility] Work Phone: Laboratory - Hematology and Cell countson 12-06-2021 Erythrocyte distribution width (RBC) [Entitic vol] 42.4 fL 35.1-43.9 [facility] Work Phone: Erythrocyte distribution width (RBC) [Ratio] 14.0 % 11.6-14.6 [facility] Work Phone: Immature granulocytes/100 WBC (Bld) 3.000 % 0.0-0.9 [facility] Work Phone: Comment on above: IG% - Immature Granu locytes (promyelocytes, myelocytes and metamyelocytes) > 1% indicates that a LEFT SHIFT is Present. MCH (RBC) [Entitic mass] 27.2 pg 27.0-32.0 [facility] Work Phone: Nucleated RBC/100 WBC (Bld) [Ratio] 0 % 0-5 [facility] Work Phone: MCHC Auto (RBC) [Mass/Vol]on 12-06-2021 MCHC (RBC) [Mass/Vol] 32.8 g/dL 32-36 [facility] Work Phone: Mucus LM Ql (Urine sed)on Mucus Ql (Urine sed) 0 SEEN /hpf [facility] Work Phone: Nitrite Test strip Ql (U)on 12-06-2021 Nitrite Ql (U) Negative Negative [facility] Work Phone: No Panel Informationon 12-06 Estimated Creatinine Clearance Calc 61.03 ml/min [facility] Work Phone: Estimated GFR (MDRD) Amer 76 mL/min >60 [facility] Work Phone: Comment on above: GFR Calc Estimated GFR (MDRD) Non-Af Amer 63 mL/min >60 [facility] Work Phone: Comment on above: Non- GFR Calc Troponin I High Sensitivity 5 pg/mL 3.0-78.0 [facility] Work Phone: Comment on above: Please Note: New Thania t Units and Gender Specific Reference Ranges. For more information see Policy Stat Procedure [place] High Sensitivity Troponin (TNIH) and attachments. SARS-CoV-2 & FLU Antigen (Rapid) SARS-CoV-2 (COVID 19) [facility] Work Phone: Platelets bldon 12-06-2021 Platelets (Bld) [#/Vol] 229 10*3/uL 150-450 [facility] Work Phone: Protein Test strip Ql (U)on 12-06-2021 Protein Ql (U) 30 mg/dl Negative [facility] Work Phone: Serum or plasma calcium antoine urement (mass/volume)on 12-06-2021 Calcium [Mass/Vol] 8.9 mg/dL 8.5-10.1 [facility] Work Phone: Serum or plasma creatinine m easurement (mass/volume)on 12-06-2021 Creatinine [Mass/Vol] 1.20 mg/dL 0.70-1.30 [facility] Work Phone: Comment on above: The validity of the calculated GFR & GFRAA in patients over 70 years has not been determined. Clinical correlation is essential. Serum or plasma urea nitroge n measurement (mass/volume)on 12-06-2021 Urea nitrogen [Mass/Vol] 17 mg/dL 7-18 [facility] Work Phone: Squamous epithelial cells de tection in urine sediment by light microscopyon 12-06-2021 Epithelial cells.squamous LM Ql (Urine sed) 0-5 SEEN /hpf 0-5 [facility] Work Phone: Thin prep Papanicolaou smear with manual screeningon 12-06-2021 Thin prep Papanicolaou smear with manual screening 9 5-15 [facility] Work Phone: Urine blood detectionon 11-13 RBC Ql (U) 10 /ul Negative [facility] Work Phone: RBC Ql (U) 0 SEEN /hpf 0-5 [facility] Work Phone: Urine clarityon 12-06-2021 Clarity (U) Clear Clear [facility] Work Phone: Urine color determinationon 12-06-2021 Color (U) Yellow Yellow [facility] Work Phone: Urine glucose detectionon Glucose Ql (U) 100 mg/dl Normal [facility] Work Phone: Urine leukocyte esterase det ection by dipstickon 12-06-2021 Leukocyte esterase Test strip Ql (U) 25 /ul Negative [facility] Work Phone: Urine pHon 12-06-2021 pH (U) 5.0 [pH] 5.0 - 8.0 [facility] Work Phone: Urine sediment bacteria coun t by microscopy (number/high power field)on 12-06-2021 Bacteria LM.HPF (Urine sed) [#/Area] 1 /[HPF] None Seen [facility] Work Phone: Urine specific gravity measu rementon 12-06-2021 Specific gravity (U) [Rel density] 1.025 1.002-1.03 0 [facility] Work Phone: Urobilinogen Auto test strip Ql (U)on 12-06-2021 Urobilinogen Ql (U) 1 mg/dl Normal [facility] Work Phone: GLUCOSE, BLOOD (POC)on 10-10 Glucose [Mass/Vol] 121 mg/dL Abnormal 74 - 99 mg/dL [facility] Glucose [Mass/Vol] 144 mg/dL Abnormal 74 - 99 mg/dL [facility] No Panel Informationon 10-10 [facility] CTA CHEST (GATED) W IVCONon 07-27-2021 CTA CHEST (GATED) W IVCON * * *Final Rep ort* * * DATE OF EXAM: Jul 27 2021 11:[facility] 0125 - CTA [...] The arch vessel branching pattern is normal. Blueprint Developer dimensions of the thoracic aorta are as follows: 3.5 cm at the aortic root graft 3.5 cm at the mid ascending aortic graft 3.9 cm at the rampart distal ascending aorta 3.0 cm at the [...] exposure. Cholelithiasis without findings of acute cholecystitis. [employer] Technical: BLAKE Transcribe Date/Time: Jul 27 2021 11:21A Dictated by : BALBIR RAYGOZA MD This examination was interpreted and the report reviewed and electronically signed by: SADE (more content not included)... Normal [facility] Laboratory - Microbiology an d Antimicrobial susceptibility Bacteria identified Cx Nom (Bld) No growth in 5 days. [facility] Work Phone: No Panel Information SARS-CoV-2 & FLU Antigen (Rapid) SARS-CoV-2 (COVID 19) [facility] Work Phone: Vital Signs Date Time Vital Sign Value Performing Clinician Faci lity 10-12-2024 13:12-0400 Body height 182.[address] Luis Caldera MD Work Phone: [facility] 10-12-2024 13:12-0400 Body mass index (BMI) [Ratio] 32.3 kg/m2 Dr. Luis Caldera MD Work Phone: [facility] 10-12-2024 13:12-0400 Body weight 107.[address] Luis Caldera MD Work Phone: 0(787)687-468994 [place] [address] 10-12-2024 13:12-0400 Diastolic blood pressure 57 mm[Hg] Dr. Luis Caldera MD Work Phone: 8(677)962-956094 [place] [address] 10-12-2024 13:12-0400 Heart rate 65 /min Dr. Luis Caldera MD Work Phone: 4(586)789-516794 [place] [address] 10-12-2024 13:12-0400 Respiratory rate 18 /min Dr. Luis Caldera MD Work Phone: 3(913)553-072894 [place] [address] 10-12-2024 13:12-0400 SaO2% (BldA) [Mass fraction] 99 % Dr. Luis Caldera MD Work Phone: 4(212)528-531294 [place] [address] 10-12-2024 13:12-0400 Systolic blood pressure 117 mm[Hg] Dr. Luis Caldera MD Work Phone: 6(958)474-474994 [place] [address] 10-07-2023 14:18-0400 Body height 182.[address] Luis Caldera Work Phone: 3(397)600-111794 [place] [address] 10-07-2023 14:18-0400 Body mass index (BMI) [Ratio] 29.8 kg/m2 Dr. Luis Caldera Work Phone: 6(626)921-854394 [place] [address] 10-07-2023 14:18-0400 Body weight 99.[address] Luis Caldera Work Phone: 1(363)191-294694 [place] [address] 10-07-2023 14:18-0400 Diastolic blood pressure 66 mm[Hg] Dr. Luis Caldera Work Phone: 4(227)316-687194 [place] [address] 10-07-2023 14:18-0400 Heart rate 67 /min Dr. Luis Caldera Work Phone: 6(122)321-230294 [place] [address] 10-07-2023 14:18-0400 Respiratory rate 16 /min Dr. Luis Caldera Work Phone: 3(308)908-595394 [place] [address] 10-07-2023 14:18-0400 Systolic blood pressure 112 mm[Hg] Dr. Luis Caldera Work Phone: 5(738)628-075929 [place] [address] 06-03-2023 12:50-0500 Body temperature 97.2 [degF] Dr. Luis Caldera Work Phone: 8(598)849-474394 [place] [address] 06-03-2023 12:50-0500 Diastolic blood pressure 90 mm[Hg] Dr. Luis Caldera Work Phone: 2(948)818-604229 [place] [address] 06-03-2023 12:50-0500 Heart rate 85 /min Dr. Luis Caldera Work Phone: 3(255)505-017294 [place] [address] 06-03-2023 12:50-0500 Respiratory rate 16 /min Dr. Luis Caldera Work Phone: 5(232)452-438294 [place] [address] 06-03-2023 12:50-0500 SaO2% (BldA) [Mass fraction] 97 % Dr. Luis Caldera Work Phone: 7(157)113-934794 [place] [address] 06-03-2023 12:50-0500 Systolic blood pressure 134 mm[Hg] Dr. Luis Caldera Work Phone: 6(709)285-675294 [place] [address] 06-03-2023 11:45-0500 Body height 182.[address] Luis Caldera Work Phone: 6(887)932-393094 [place] [address] 06-03-2023 11:45-0500 Body mass index (BMI) [Ratio] 30.5 kg/m2 Dr. Luis Caldera Work Phone: 2(474)733-001629 [place] [address] 06-03-2023 11:45-0500 Body weight 102.[address] Luis Caldera Work Phone: 0(366)984-194629 [place] [address] 03-27-2023 13:51-0400 Body height 185.[address] Maggy Roberts Work Phone: [facility] 03-27-2023 13:51-0400 Body mass index (BMI) [Ratio] 34.7 kg/m2 Dr. Maggy Roberts Work Phone: [facility] 03-27-2023 13:51-0400 Body weight 119.[address] Maggy Roberts Work Phone: [facility] 03-27-2023 13:51-0400 Diastolic blood pressure 78 mm[Hg] Dr. Maggy Roberts Work Phone: [facility] 03-27-2023 13:51-0400 Heart rate 97 /min Dr. Maggy Roberts Work Phone: [facility] 03-27-2023 13:51-0400 Respiratory rate 18 /min Dr. Maggy Roberts Work Phone: 4(482)431-431034 [place] [address] 03-27-2023 13:51-0400 SaO2% (BldA) [Mass fraction] 98 % Dr. Maggy Roberts Work Phone: 0(853)833-347534 [place] [address] 03-27-2023 13:51-0400 Systolic blood pressure 118 mm[Hg] Dr. Maggy Roberts Work Phone: 3(105)534-903834 [place] [address] 02-13-2023 15:02-0400 Body temperature 97 [degF] Dr. Maggy Roberts Work Phone: 9(840)754-481134 [place] [address] 02-13-2023 15:02-0400 Diastolic blood pressure 70 mm[Hg] Dr. Maggy Roberts Work Phone: [facility] 02-13-2023 15:02-0400 Heart rate 82 /min Dr. Maggy Roberts Work Phone: [facility] 02-13-2023 15:02-0400 Respiratory rate 16 /min Dr. Maggy Roberts Work Phone: [facility] 02-13-2023 15:02-0400 SaO2% (BldA) [Mass fraction] 100 % Dr. Maggy Roberts Work Phone: [facility] 02-13-2023 15:02-0400 Systolic blood pressure 134 mm[Hg] Dr. Maggy Roberts Work Phone: [facility] 02-12-2023 13:33-0400 Body height 185.[address] Maggy Roberts Work Phone: 9(635)637-092834 [place] [address] 02-12-2023 13:33-0400 Body weight 102.[address] Maggy Roberts Work Phone: 2(654)923-510617 [place] [address] 02-11-2023 20:45-0400 Body mass index (BMI) [Ratio] 30 kg/m2 Dr. Maggy Roberts Work Phone: 3(205)394-718731 [address] 02-11-2023 18:53-0400 Body temperature 99.1 [degF] Dr. Maggy Roberts Work Phone: 0(078)422-078517 [place] [address] 02-11-2023 18:53-0400 Diastolic blood pressure 71 mm[Hg] Dr. Maggy Roberts Work Phone: 1(647)512-414917 [place] [address] 02-11-2023 18:53-0400 Heart rate 88 /min Dr. Maggy Roberts Work Phone: 9(643)245-303717 [place] [address] 02-11-2023 18:53-0400 Respiratory rate 18 /min Dr. Maggy Roberts Work Phone: 8(140)606-805017 [place] [address] 02-11-2023 18:53-0400 SaO2% (BldA) [Mass fraction] 93 % Dr. Maggy Roberts Work Phone: 1(215)174-501031 [address] 02-11-2023 18:53-0400 Systolic blood pressure 129 mm[Hg] Dr. Maggy Roberts Work Phone: 5(975)566-562334 [place] [address] 02-11-2023 16:21-0400 Body height 185.[address] Maggy Roberts Work Phone: 2(442)945-664134 [place] [address] 02-11-2023 00:58-0400 Body temperature 98.4 [degF] Dr. Maggy Roberts Work Phone: 1(533)874-942434 [place] [address] 02-11-2023 00:58-0400 Diastolic blood pressure 62 mm[Hg] Dr. Maggy Roberts Work Phone: 3(657)428-792034 [place] [address] 02-11-2023 00:58-0400 Heart rate 74 /min Dr. Maggy Roberts Work Phone: 9(649)857-836434 [place] [address] 02-11-2023 00:58-0400 Respiratory rate 26 /min Dr. Maggy Roberts Work Phone: 2(129)424-985117 [place] [address] 02-11-2023 00:58-0400 SaO2% (BldA) [Mass fraction] 95 % Dr. Maggy Roberts Work Phone: 3(277)829-113217 [place] [address] 02-11-2023 00:58-0400 Systolic blood pressure 124 mm[Hg] Dr. Maggy Roberts Work Phone: 8(862)864-693117 [place] [address] 02-10-2023 21:23-0400 Body height 185.[address] Maggy Roberts Work Phone: 8(675)332-967317 [place] [address] 02-10-2023 21:23-0400 Body mass index (BMI) [Ratio] 30.9 kg/m2 Dr. Maggy Roberts Work Phone: 6(987)329-742517 [place] [address] 02-10-2023 21:23-0400 Body weight 106.[address] Maggy Roberts Work Phone: 5(317)676-055717 [place] [address] 02-05-2023 15:10-0400 Body temperature 97.4 [degF] Dr. Maggy Roberts Work Phone: 5(183)119-298417 [place] [address] 02-05-2023 15:10-0400 Diastolic blood pressure 77 mm[Hg] Dr. Maggy Roberts Work Phone: 6(614)910-486717 [place] [address] 02-05-2023 15:10-0400 Heart rate 85 /min Dr. Maggy Roberts Work Phone: 4(185)484-125917 [place] [address] 02-05-2023 15:10-0400 Respiratory rate 18 /min Dr. Maggy Roberts Work Phone: 8(196)596-866517 [place] [address] 02-05-2023 15:10-0400 SaO2% (BldA) [Mass fraction] 94 % Dr. Maggy Roberts Work Phone: 8(403)769-487617 [place] [address] 02-05-2023 15:10-0400 Systolic blood pressure 131 mm[Hg] Dr. Maggy Roberts Work Phone: [facility] 02-05-2023 05:36-0400 Body mass index (BMI) [Ratio] 30.6 kg/m2 Dr. Maggy Roberts Work Phone: [facility] 02-05-2023 05:36-0400 Body weight 105.[address] Maggy Roberts Work Phone: 5(930)122-708434 [place] [address] 02-01-2023 00:17-0400 Inhaled oxygen flow rate 2 L/min Dr. Maggy Roberts Work Phone: 3(528)992-484031 [address] 01-27-2023 21:04-0400 Body temperature 98.1 [degF] Dr. Maggy Roberts Work Phone: 7(193)608-402331 [address] 01-27-2023 21:04-0400 Diastolic blood pressure 48 mm[Hg] Dr. Maggy Roberts Work Phone: 8(012)108-453234 [place] [address] 01-27-2023 21:04-0400 Heart rate 79 /min Dr. Maggy Roberts Work Phone: 6(440)638-210434 [place] [address] 01-27-2023 21:04-0400 Respiratory rate 16 /min Dr. Maggy Roberts Work Phone: 0(248)951-467734 [place] [address] 01-27-2023 21:04-0400 SaO2% (BldA) [Mass fraction] 94 % Dr. Maggy Roberts Work Phone: [facility] 01-27-2023 21:04-0400 Systolic blood pressure 111 mm[Hg] Dr. Maggy Roberts Work Phone: [facility] 01-27-2023 17:58-0400 Body height 185.[address] Maggy Roberts Work Phone: [facility] 01-27-2023 17:58-0400 Body mass index (BMI) [Ratio] 30.5 kg/m2 Dr. Maggy Roberts Work Phone: 2(391)572-512634 [place] [address] 01-27-2023 17:58-0400 Body weight [address] Maggy Roberts Work Phone: 3(355)952-003934 [place] [address] 01-26-2023 14:13-0400 Body temperature 98.6 [degF] Dr. Maggy Roberts Work Phone: 1(330)997-289917 [place] [address] 01-26-2023 14:13-0400 Diastolic blood pressure 46 mm[Hg] Dr. Maggy Roberts Work Phone: 9(542)275-827234 [place] [address] 01-26-2023 14:13-0400 Heart rate 60 /min Dr. Maggy Roberts Work Phone: 9(391)144-113317 [place] [address] 01-26-2023 14:13-0400 Respiratory rate 18 /min Dr. Maggy Roberts Work Phone: 9(521)464-121417 [place] [address] 01-26-2023 14:13-0400 SaO2% (BldA) [Mass fraction] 97 % Dr. Maggy Roberts Work Phone: 5(178)944-251834 [place] [address] 01-26-2023 14:13-0400 Systolic blood pressure 134 mm[Hg] Dr. Maggy Roberts Work Phone: 2(599)593-334817 [place] [address] 01-25-2023 05:27-0400 Body mass index (BMI) [Ratio] 28.2 kg/m2 Dr. Maggy Roberts Work Phone: 6(612)591-425034 [place] [address] 01-25-2023 05:27-0400 Body weight 96.[address] Maggy Roberts Work Phone: 6(586)539-262817 [place] [address] 01-24-2023 16:00-0400 Inhaled oxygen flow rate 93 L/min Dr. Maggy Roberts Work Phone: 1(664)675-211417 [place] [address] 01-23-2023 14:42-0400 Body height 185.[address] Maggy Roberts Work Phone: 8(909)140-685234 [place] [address] 01-21-2023 11:32-0400 Body temperature 97.8 [degF] Dr. Maggy Roberts Work Phone: 7(640)103-489234 [place] [address] 01-21-2023 11:32-0400 Diastolic blood pressure 55 mm[Hg] Dr. Maggy Roberts Work Phone: 8(794)329-284217 [place] [address] 01-21-2023 11:32-0400 Heart rate 83 /min Dr. Maggy Roberts Work Phone: 1(086)010-381417 [place] [address] 01-21-2023 11:32-0400 Respiratory rate 23 /min Dr. Maggy Roberts Work Phone: 7(847)542-282817 [place] [address] 01-21-2023 11:32-0400 SaO2% (BldA) [Mass fraction] 93 % Dr. Maggy Roberts Work Phone: 1(620)718-813917 [place] [address] 01-21-2023 11:32-0400 Systolic blood pressure 133 mm[Hg] Dr. Maggy Roberts Work Phone: 1(509)585-798917 [place] [address] 01-21-2023 08:21-0400 Body height 185.[address] Maggy Roberts Work Phone: 9(473)207-252817 [place] [address] 01-21-2023 08:21-0400 Body mass index (BMI) [Ratio] 28.9 kg/m2 Dr. Maggy Roberts Work Phone: 9(042)335-223317 [place] [address] 01-21-2023 08:21-0400 Body weight 99.[address] Maggy Roberts Work Phone: 4(229)209-588417 [place] [address] 01-08-2023 11:58-0400 Body temperature 98.3 [degF] Dr. Maggy Roberts Work Phone: 1(143)550-468217 [place] [address] 01-08-2023 11:58-0400 Diastolic blood pressure 70 mm[Hg] Dr. Maggy Roberts Work Phone: 5(816)333-261317 [place] [address] 01-08-2023 11:58-0400 Heart rate 60 /min Dr. Maggy Roberts Work Phone: 1(009)179-185417 [place] [address] 01-08-2023 11:58-0400 Respiratory rate 14 /min Dr. Maggy Roberts Work Phone: [facility] 01-08-2023 11:58-0400 SaO2% (BldA) [Mass fraction] 96 % Dr. Maggy Roberts Work Phone: [facility] 01-08-2023 11:58-0400 Systolic blood pressure 108 mm[Hg] Dr. Maggy Roberts Work Phone: [facility] 01-08-2023 06:00-0400 Body mass index (BMI) [Ratio] 38.4 kg/m2 Dr. Maggy Roberts Work Phone: [facility] 01-08-2023 06:00-0400 Body weight [address] Maggy Roberts Work Phone: [facility] 01-04-2023 17:25-0400 Diastolic blood pressure 63 mm[Hg] [facility] 01-04-2023 17:25-0400 Heart rate 63 /min [facility] 01-04-2023 17:25-0400 Respiratory rate 12 /min [facility] 01-04-2023 17:25-0400 SaO2% (BldA) [Mass fraction] 98 % [facility] 01-04-2023 17:25-0400 Systolic blood pressure 138 mm[Hg] [facility] 01-04-2023 16:19-0400 Body temperature 96.9 [degF] [facility] 01-04-2023 11:15-0400 Body mass index (BMI) [Ratio] 30.4 kg/m2 [facility] 01-04-2023 11:15-0400 Body weight 104.7 kg [facility] 01-04-2023 10:59-0400 Body height 185.42 cm [facility] 09-07-2022 11:01-0500 Body height 185.4 cm Jojo Kaur MD Work Phone: [facility] 09-07-2022 11:01-0500 Body weight 113.4 kg Jojo Kaur MD Work Phone: [facility] 09-07-2022 11:01-0500 Diastolic blood pressure 57 mm[Hg] Jojo Kaur MD Work Phone: [facility] 09-07-2022 11:01-0500 Heart rate 64 /min Jojo Kaur MD Work Phone: [facility] 09-07-2022 11:01-0500 Respiratory rate 16 /min Jojo Kaur MD Work Phone: [facility] 09-07-2022 11:01-0500 SaO2% (BldA) [Mass fraction] 99 % Jojo Kaur MD Work Phone: [facility] 09-07-2022 11:01-0500 Systolic blood pressure 124 mm[Hg] Jojo Kaur MD Work Phone: [facility] 08-09-2022 16:35-0500 Body weight 113.4 kg Abdulaziz Caldera MD Work Phone: [facility] 08-09-2022 16:35-0500 Diastolic blood pressure 62 mm[Hg] Abdulaziz Caldera MD Work Phone: [facility] 08-09-2022 16:35-0500 Heart rate 64 /min Abdulaziz Caldera MD Work Phone: [facility] 08-09-2022 16:35-0500 Respiratory rate 16 /min Abdulaziz Caldera MD Work Phone: [facility] 08-09-2022 16:35-0500 SaO2% (BldA) [Mass fraction] 96 % Abdulaziz Caldera MD Work Phone: [facility] 08-09-2022 16:35-0500 Systolic blood pressure 112 mm[Hg] Abdulaziz Caldera MD Work Phone: [facility] 07-11-2022 16:22-0500 Body temperature 97.9 [degF] Dr. Luis Caldera Work Phone: [facility] Work Phone: 07-11-2022 16:22-0500 Diastolic blood pressure 65 mm[Hg] Dr. Luis Caldera Work Phone: [facility] Work Phone: 07-11-2022 16:22-0500 Heart rate 75 /min Dr. Luis Caldera Work Phone: [facility] Work Phone: 07-11-2022 16:22-0500 Respiratory rate 17 /min Dr. Luis Caldera Work Phone: [facility] Work Phone: 07-11-2022 16:22-0500 SaO2% (BldA) [Mass fraction] 96 % Dr. Luis Caldera Work Phone: [facility] Work Phone: 07-11-2022 16:22-0500 Systolic blood pressure 114 mm[Hg] Dr. Luis Caldera Work Phone: [facility] Work Phone: 07-11-2022 03:04-0500 Body weight 114.[address] Luis Caldera Work Phone: [facility] Work Phone: 07-10-2022 14:29-0500 Body height 185.[address] Luis Caldera Work Phone: [facility] Work Phone: 07-10-2022 03:04-0500 Body mass index (BMI) [Ratio] 33.6 kg/m2 Dr. Luis Caldera Work Phone: [facility] Work Phone: 07-09-2022 21:17-0500 Inhaled oxygen flow rate 97 L/min Dr. Luis Caldera Work Phone: [facility] Work Phone: 04-17-2022 11:23-0400 Body height 185.4 cm Jojo Kaur MD Work Phone: [place] [address]-04-2022 11:23-0400 Body weight 114.31 kg Jojo Kaur MD Work Phone: [facility] 04-17-2022 11:23-0400 Diastolic blood pressure 71 mm[Hg] Jojo Kaur MD Work Phone: [facility] 04-17-2022 11:23-0400 Heart rate 72 /min Jojo Kaur MD Work Phone: [facility] 04-17-2022 11:23-0400 Respiratory rate 18 /min oJjo Kaur MD Work Phone: [facility] 04-17-2022 11:23-0400 SaO2% (BldA) [Mass fraction] 98 % Jojo Kaur MD Work Phone: [facility] 04-17-2022 11:23-0400 Systolic blood pressure 116 mm[Hg] Jojo Kaur MD Work Phone: [facility] 04-16-2022 13:09-0400 Body height 185.4 cm Abdulaziz Caldera MD Work Phone: [facility] 04-16-2022 13:09-0400 Body weight 114.31 kg Abdulaziz Caldera MD Work Phone: [facility] 04-16-2022 13:09-0400 Diastolic blood pressure 72 mm[Hg] Abdulaziz Caldera MD Work Phone: [facility] 04-16-2022 13:09-0400 Heart rate 70 /min Abdulaziz Caldera MD Work Phone: [facility] 04-16-2022 13:09-0400 Respiratory rate 16 /min Abdulaziz Caldera MD Work Phone: [facility] 04-16-2022 13:09-0400 SaO2% (BldA) [Mass fraction] 98 % Abdulaziz Caldera MD Work Phone: [facility] 04-16-2022 13:09-0400 Systolic blood pressure 132 mm[Hg] Abdulaziz Caldera MD Work Phone: [facility] 04-06-2022 09:36-0400 Body weight 114.31 kg Roselia Podlogar STOGY ROLLER.COMMUNICATIONS ENGINEERING TECHNICIAN Work Phone: [facility] 04-06-2022 09:36-0400 Diastolic blood pressure 62 mm[Hg] Roselia Podlogar STOGY ROLLER.COMMUNICATIONS ENGINEERING TECHNICIAN Work Phone: [facility] 04-06-2022 09:36-0400 Heart rate 62 /min Roselia Podlogar STOGY ROLLER.COMMUNICATIONS ENGINEERING TECHNICIAN Work Phone: [facility] 04-06-2022 09:36-0400 Respiratory rate 16 /min Roselia Podlogar STOGY ROLLER.COMMUNICATIONS ENGINEERING TECHNICIAN Work Phone: [facility] 04-06-2022 09:36-0400 SaO2% (BldA) [Mass fraction] 97 % Roselia Podlogar STOGY ROLLER.COMMUNICATIONS ENGINEERING TECHNICIAN Work Phone: [facility] 04-06-2022 09:36-0400 Systolic blood pressure 112 mm[Hg] Roselia Podlogar STOGY ROLLER.COMMUNICATIONS ENGINEERING TECHNICIAN Work Phone: [facility] 03-07-2022 11:12-0400 Body weight 114.76 kg Abdulaziz Caldera MD Work Phone: [facility] 03-07-2022 11:12-0400 Diastolic blood pressure 70 mm[Hg] Abdulaziz Caldera MD Work Phone: [facility] 03-07-2022 11:12-0400 Heart rate 64 /min Abdulaziz Caldera MD Work Phone: [facility] 03-07-2022 11:12-0400 Respiratory rate 16 /min Abdulaziz Caldera MD Work Phone: [facility] 03-07-2022 11:12-0400 Systolic blood pressure 118 mm[Hg] Abdulaziz Caldera MD Work Phone: [facility] 03-05-2022 12:00-0400 Diastolic blood pressure 60 mm[Hg] Rosa Elena Poon PT [facility] 03-05-2022 12:00-0400 Systolic blood pressure 112 mm[Hg] Rosa Elena Poon PT [facility] 03-02-2022 19:48-0400 Diastolic blood pressure 79 mm[Hg] Dr. Luis Caldera Work Phone: [facility] Work Phone: 03-02-2022 19:48-0400 Heart rate 77 /min Dr. Luis Caldera Work Phone: [facility] Work Phone: 03-02-2022 19:48-0400 SaO2% (BldA) [Mass fraction] 97 % Dr. Luis Caldera Work Phone: [facility] Work Phone: 03-02-2022 19:48-0400 Systolic blood pressure 131 mm[Hg] Dr. Luis Caldera Work Phone: [facility] Work Phone: 03-02-2022 18:12-0400 Respiratory rate 17 /min Dr. Luis Caldera Work Phone: [facility] Work Phone: 03-02-2022 14:22-0400 Body height 185.[address] Luis Caldera Work Phone: [facility] Work Phone: 03-02-2022 14:22-0400 Body mass index (BMI) [Ratio] 32.3 kg/m2 Dr. Luis Caldera Work Phone: [facility] Work Phone: 03-02-2022 14:22-0400 Body temperature 98.9 [degF] Dr. Luis Caldera Work Phone: [facility] Work Phone: 03-02-2022 14:22-0400 Body weight 111.[address] Luis Caldera Work Phone: [facility] Work Phone: 01-12-2022 08:00-0400 Diastolic blood pressure 78 mm[Hg] Rosa Elena Lemon PT [facility] 01-12-2022 08:00-0400 Systolic blood pressure 130 mm[Hg] Rosa Elena Lemon PT [facility] 01-05-2022 09:56-0400 Body height 185.4 cm Jojo Kaur MD Work Phone: [facility] 01-05-2022 09:56-0400 Body weight 111.58 kg Jojo Kaur MD Work Phone: [facility] 01-05-2022 09:56-0400 Diastolic blood pressure 62 mm[Hg] Jojo Kaur MD Work Phone: [facility] 01-05-2022 09:56-0400 Heart rate 58 /min Jojo Kaur MD Work Phone: [facility] 01-05-2022 09:56-0400 Respiratory rate 16 /min Jojo Kaur MD Work Phone: [facility] 01-05-2022 09:56-0400 SaO2% (BldA) [Mass fraction] 97 % Jojo Kaur MD Work Phone: [facility] 01-05-2022 09:56-0400 Systolic blood pressure 117 mm[Hg] Jojo Kaur MD Work Phone: [facility] 01-01-2022 10:12-0400 Body temperature 97.39 [degF] Abdulaziz Caldera MD Work Phone: [facility] 01-01-2022 10:12-0400 Body weight 111.77 kg Abdulaziz Caldera MD Work Phone: [facility] 01-01-2022 10:12-0400 Diastolic blood pressure 64 mm[Hg] Abdulaziz Caldera MD Work Phone: [facility] 01-01-2022 10:12-0400 Heart rate 47 /min Abdulaziz Caldera MD Work Phone: [facility] 01-01-2022 10:12-0400 Respiratory rate 18 /min Abdulaziz Caldera MD Work Phone: [facility] 01-01-2022 10:12-0400 SaO2% (BldA) [Mass fraction] 98 % Abdulaziz Caldera MD Work Phone: [facility] 01-01-2022 10:12-0400 Systolic blood pressure 112 mm[Hg] Abdulaziz Caldera MD Work Phone: [facility] 01-01-2022 08:55-0400 Body weight 112.49 kg Justina Monique APRN.COMMUNICATIONS ENGINEERING TECHNICIAN Work Phone: [facility] 01-01-2022 08:55-0400 Diastolic blood pressure 74 mm[Hg] Justina Monique STOGY ROLLER.COMMUNICATIONS ENGINEERING TECHNICIAN Work Phone: [facility] 01-01-2022 08:55-0400 Heart rate 60 /min Justina Monique STOGY ROLLER.COMMUNICATIONS ENGINEERING TECHNICIAN Work Phone: [facility] 01-01-2022 08:55-0400 Respiratory rate 18 /min Justina Monique STOGY ROLLER.COMMUNICATIONS ENGINEERING TECHNICIAN Work Phone: [facility] 01-01-2022 08:55-0400 Systolic blood pressure 147 mm[Hg] Justina Monique STOGY ROLLER.COMMUNICATIONS ENGINEERING TECHNICIAN Work Phone: [facility] 12-29-2021 08:54-0400 Heart rate 69 /min Dr. Luis Caldera Work Phone: [facility] Work Phone: 12-29-2021 08:50-0400 Body temperature 97.7 [degF] Dr. Luis Caldera Work Phone: [facility] Work Phone: 12-29-2021 08:50-0400 Diastolic blood pressure 68 mm[Hg] Dr. Luis Caldera Work Phone: [facility] Work Phone: 12-29-2021 08:50-0400 Respiratory rate 18 /min Dr. Luis Caldera Work Phone: [facility] Work Phone: 12-29-2021 08:50-0400 SaO2% (BldA) [Mass fraction] 96 % Dr. Luis Caldera Work Phone: [facility] Work Phone: 12-29-2021 08:50-0400 Systolic blood pressure 139 mm[Hg] Dr. Luis Caldera Work Phone: [facility] Work Phone: 12-27-2021 22:36-0400 Body height 185.[address] Luis Caldera Work Phone: [facility] Work Phone: 12-27-2021 22:36-0400 Body mass index (BMI) [Ratio] 32.8 kg/m2 Dr. Luis Caldera Work Phone: [facility] Work Phone: 12-27-2021 22:36-0400 Body weight 112.[address] Luis Caldera Work Phone: [facility] Work Phone: 12-27-2021 21:22-0400 Diastolic blood pressure 71 mm[Hg] DR MELANIA WORKMAN MD [facility] 12-27-2021 21:22-0400 Heart rate 73 /min DR MELANIA WORKMAN MD [facility] 12-27-2021 21:22-0400 Respiratory rate 24 /min DR MELANIA WORKMAN MD [facility] 12-27-2021 21:22-0400 Systolic blood pressure 121 mm[Hg] DR MELANIA WORKMAN MD [facility] 12-27-2021 20:06-0400 Diastolic blood pressure 59 mm[Hg] DR MELANIA WORKMAN MD [facility] 12-27-2021 20:06-0400 Heart rate 80 /min DR MELANIA WORKMAN MD [facility] 12-27-2021 20:06-0400 Respiratory rate 26 /min DR MELANIA WORKMAN MD [facility] 12-27-2021 20:06-0400 Systolic blood pressure 112 mm[Hg] DR MELANIA WORKMAN MD [facility] 12-27-2021 19:19-0400 Body temperature 98.6 [degF] DR MELANIA WORKMAN MD [facility] 12-27-2021 19:19-0400 Diastolic blood pressure 76 mm[Hg] DR MELANIA WORKMAN MD [facility] 12-27-2021 19:19-0400 Heart rate 82 /min DR MELANIA WORKMAN MD [facility] 12-27-2021 19:19-0400 Respiratory rate 26 /min DR MELANIA WORKMAN MD [facility] 12-27-2021 19:19-0400 Systolic blood pressure 138 mm[Hg] DR MELANIA WORKMAN MD [facility] 12-27-2021 17:36-0400 Body temperature 102.56 [degF] DR MELANIA WORKMAN MD [facility] 12-27-2021 17:36-0400 Body weight [address] MELANIA WORKMAN MD [facility] 12-27-2021 17:36-0400 Heart rate 104 /min DR MELANIA WORKMAN MD [facility] 12-14-2021 15:10-0400 Body temperature 98.2 [degF] Abdulaziz Caldera MD Work Phone: [facility] 12-14-2021 15:10-0400 Body weight 110.77 kg Abdulaziz Caldera MD Work Phone: [facility] 12-14-2021 15:10-0400 Diastolic blood pressure 70 mm[Hg] Abdulaziz Caldera MD Work Phone: [facility] 12-14-2021 15:10-0400 Heart rate 54 /min Abdulaziz Caldera MD Work Phone: [facility] 12-14-2021 15:10-0400 Respiratory rate 16 /min Abdulaziz Caldera MD Work Phone: [facility] 12-14-2021 15:10-0400 SaO2% (BldA) [Mass fraction] 96 % Abdulaziz Caldera MD Work Phone: [facility] 12-14-2021 15:10-0400 Systolic blood pressure 130 mm[Hg] Abdulaziz Caldera MD Work Phone: [facility] 12-08-2021 16:23-0400 Diastolic blood pressure 64 mm[Hg] Abdulaziz Caldera MD Work Phone: [facility] 12-08-2021 16:23-0400 Heart rate 85 /min Abdulaziz Caldera MD Work Phone: [facility] 12-08-2021 16:23-0400 Systolic blood pressure 110 mm[Hg] Abdulaziz Caldera MD Work Phone: [facility] 12-07-2021 00:58-0400 SaO2% (BldA) [Mass fraction] 97 % [facility] Work Phone: 12-06-2021 22:59-0400 Body height 185.42 cm [facility] Work Phone: 12-06-2021 22:59-0400 Body mass index (BMI) [Ratio] 33.6 kg/m2 [facility] Work Phone: 12-06-2021 22:59-0400 Body temperature 97.7 [degF] [facility] Work Phone: 12-06-2021 22:59-0400 Body weight 115.66 kg [facility] Work Phone: 12-06-2021 22:59-0400 Diastolic blood pressure 78 mm[Hg] [facility] Work Phone: 12-06-2021 22:59-0400 Heart rate 90 /min [facility] Work Phone: 12-06-2021 22:59-0400 Respiratory rate 16 /min [facility] Work Phone: 12-06-2021 22:59-0400 Systolic blood pressure 149 mm[Hg] [facility] Work Phone: 10-23-2021 13:05-0400 Body temperature 97.3 [degF] Marcella Xavier PA-C Work Phone: [facility] 10-23-2021 13:05-0400 Body weight 114.58 kg Marcella [place] PA-C Work Phone: [facility] 10-23-2021 13:05-0400 Diastolic blood pressure 56 mm[Hg] Marcella Xavier PA-C Work Phone: [facility] 10-23-2021 13:05-0400 Heart rate 85 /min Marcella [place] PA-C Work Phone: [facility] 10-23-2021 13:05-0400 SaO2% (BldA) [Mass fraction] 98 % Marcella Xavier PA-C Work Phone: [facility] 10-23-2021 13:05-0400 Systolic blood pressure 132 mm[Hg] Marcellamichael Nicholsf PA-C Work Phone: [facility] 10-10-2021 10:07-0400 Diastolic blood pressure 68 mm[Hg] Richard Jones MD Work Phone: [facility] 10-10-2021 10:07-0400 Heart rate 69 /min Richard Jones MD Work Phone: [facility] 10-10-2021 10:07-0400 Respiratory rate 16 /min Richard Jones MD Work Phone: [facility] 10-10-2021 10:07-0400 SaO2% (BldA) [Mass fraction] 98 % Richard Jones MD Work Phone: [facility] 10-10-2021 10:07-0400 Systolic blood pressure 150 mm[Hg] Richard Jones MD Work Phone: [facility] 10-10-2021 08:01-0400 Body temperature 97 [degF] Richard Jones MD Work Phone: [facility] Encounters Encounter Date Encounter Type Care Provider Facility Start: 12-22-2024 ambulatory Walter Rosita [place] Facili ty:[facility] Start: 12-16-2024 ambulatory Walter Rosita [place] Facili ty:[facility] Start: 11-24-2024 ambulatory Luis Chavez lity:[facility] Start: 10-12-2024 End: 10-12-[address] Olga Lidia Rasheed MD -[facility] Work Phone: Start: 10-12-2024 End: 10-12-2024 ambulatory Olga Lidia Rasheed [place] Start: 10-05-2024 End: 10-05-[address] Luis Caldera MD Work Phone: [facility] Work Phone: Start: 10-05-2024 End: 10-05-2024 Departed Referred Walter Becker MD -[facility] Start: 10-05-2024 Registered Referred Walter Becker MD -[facility] Start: 10-05-2024 End: 10-05-2024 ambulatory Luis Caldera Facility:[facility] Start: 09-29-2024 End: 09-29-[address] Luis Caldera MD Work Phone: [facility] Work Phone: Start: 09-29-2024 End: 09-29-2024 Departed Referred Walter Becker MD -[facility] Start: 09-29-2024 End: 09-29-2024 ambulatory Walter MAYORGA Facility:[facility] Start: 08-04-2024 End: 08-04-2024 Departed Referred Walter Becker MD -[facility] Start: 08-04-2024 End: 08-04-2024 ambulatory Walter MAYORGA Facility:[facility] Start: 07-27-2024 End: 07-27-2024 Departed Referred Walter Becker MD -[facility] Start: 07-27-2024 End: 07-27-2024 ambulatory Walter MAYORGA Facility:[facility] Start: 07-07-2024 End: 07-07-2024 Departed Referred Walter Becker MD -[facility] Start: 07-07-2024 End: 07-07-2024 [facility] Start: 07-01-2024 ambulatory Walter MAYORGA Facili ty:[facility] Start: 07-01-2024 Registered Referred Walter Becker MD -[facility] Start: 06-01-2024 End: 06-01-2024 ambulatory Luis Caldera Facility:[facility] Start: 04-14-2024 End: 04-14-2024 ambulatory Luis Bursley Facility:[facility] Start: 04-10-2024 End: 04-10-2024 ambulatory Luis Bursley Facility:[facility] Start: 04-09-2024 End: 04-09-2024 ambulatory Walter Stoneo OLS Facility:[facility] Start: 04-07-2024 End: 04-08-2024 ambulatory Walter Depfabienneo OLS Facility:[facility] Start: 03-02-2024 ambulatory Walter Deperro OLS Facili ty:[facility] Start: 02-24-2024 ambulatory Walter Deperro OLS Facili ty:[facility] Start: 02-19-2024 End: 02-19-2024 ambulatory Walter Stoneo OLS Facility:[facility] Start: 02-17-2024 End: 02-17-2024 ambulatory Luis Peaceley Facility:[facility] Start: 02-12-2024 End: 02-12-2024 ambulatory Luis Peaceley Facility:[facility] Start: 02-11-2024 End: 02-11-2024 ambulatory Luis Peaceley Facility:[facility] Start: 02-10-2024 End: 02-10-2024 ambulatory Luis Bursley Facility:[facility] Start: 02-03-2024 End: 02-03-2024 ambulatory Walter Stoneo OLS Facility:[facility] Start: 01-27-2024 End: 01-27-2024 ambulatory Walter Depfabienneo OLS Facility:[facility] Start: 01-20-2024 ambulatory Walter Deperro OLS Facili ty:[facility] Start: 01-15-2024 ambulatory Walter Depfabienneo OLS Facili ty:[facility] Start: 01-14-2024 ambulatory Walter Deperro OLS Facili ty:[facility] Start: 01-13-2024 ambulatory Walter Deperro OLS Facili ty:[facility] Start: 10-25-[address] Adam Caldera Work Phone: [facility] Start: 10-16-2023 End: 10-16-[address] Luis Caldera Work Phone: [facility] Work Phone: Start: 10-16-2023 End: 10-16-[address] Luis Caldera Work Phone: [facility] Start: 10-16-[address] Adam Caldera Work Phone: [facility] Start: 10-08-2023 End: 10-08-[address] Luis Caldera Work Phone: [facility] Work Phone: Start: 10-08-2023 End: 10-08-[address] Luis Caldera Work Phone: [facility] Start: 10-08-[address] Adam Caldera Work Phone: [facility] Start: 10-07-2023 End: 10-07-[address] Luis Caldera Work Phone: [facility] Work Phone: Start: 10-04-2023 End: 10-04-[address] Luis Caldera Work Phone: [facility] Work Phone: Start: 10-04-2023 End: 10-04-[address] Luis Caldera Work Phone: [facility] Start: 10-01-2023 End: 10-01-[address] Luis Caldera Work Phone: [facility] Work Phone: Start: 10-01-2023 End: 10-01-[address] Luis Caldera Work Phone: [facility] Start: 10-01-2023 Registered Referred [facility] Start: 09-25-2023 End: 09-25-2023 ambulatory [facility] Work Phone: Start: 09-25-2023 End: 09-25-2023 Departed Referred [facility] Start: 09-18-2023 End: 09-18-2023 ambulatory [facility] Work Phone: Start: 09-18-2023 End: 09-18-2023 Departed Referred [facility] Start: 09-18-2023 Registered Referred [facility] Start: 09-13-2023 End: 09-13-2023 ambulatory [facility] Work Phone: Start: 09-13-2023 End: 09-13-2023 Departed Referred [facility] Start: 09-13-2023 Registered Referred [facility] Start: 09-12-2023 End: 09-12-2023 ambulatory [facility] Work Phone: Start: 09-12-2023 End: 09-12-2023 Departed Referred [facility] Start: 09-12-2023 Registered Referred [facility] Start: 09-09-2023 End: 09-09-2023 ambulatory [facility] Work Phone: Start: 09-09-2023 End: 09-09-2023 Departed Referred [facility] Start: 09-09-2023 Registered Referred [facility] Start: 08-26-2023 End: 08-26-2023 ambulatory [facility] Work Phone: Start: 08-26-2023 End: 08-26-2023 Departed Referred [facility] Start: 08-26-2023 Registered Referred [facility] Start: 08-19-2023 End: 08-19-2023 ambulatory [facility] Work Phone: Start: 08-19-2023 End: 08-19-2023 Departed Referred [facility] Start: 08-19-2023 Registered Referred [facility] Start: 08-12-2023 End: 08-12-2023 ambulatory [facility] Work Phone: Start: 08-12-2023 End: 08-12-2023 Departed Referred [facility] Start: 08-12-2023 Registered Referred [facility] Start: 08-05-2023 End: 08-05-2023 ambulatory [facility] Work Phone: Start: 08-05-2023 End: 08-05-2023 Departed Referred [facility] Start: 08-05-2023 Registered Referred [facility] Start: 07-29-2023 End: 07-29-2023 ambulatory [facility] Work Phone: Start: 07-29-2023 End: 07-29-2023 Departed Referred [facility] Start: 07-22-2023 End: 07-22-2023 ambulatory [facility] Work Phone: Start: 07-22-2023 End: 07-22-2023 Departed Referred [facility] Start: 07-22-[address] Adam Caldera Work Phone: [facility] Start: 07-19-2023 End: 07-19-2023 ambulatory [facility] Work Phone: Start: 07-19-2023 End: 07-19-2023 Departed Referred [facility] Start: 07-19-[address] Adam Caldera Work Phone: [facility] Start: 07-17-2023 End: 07-17-2023 ambulatory [facility] Work Phone: Start: 07-17-2023 End: 07-17-2023 Departed Referred [facility] Start: 07-17-[address] Adam Caldera Work Phone: [facility] Start: 07-10-2023 End: 07-10-[address] Luis Caldera Work Phone: [facility] Work Phone: Start: 07-10-2023 End: 07-10-[address] Luis Caldera Work Phone: [facility] Start: 07-03-2023 End: 07-03-[address] Luis Caldera Work Phone: [facility] Work Phone: Start: 07-03-2023 End: 07-03-[address] Luis Caldera Work Phone: [facility] Start: 07-03-[address] Adam Caldera Work Phone: [facility] Start: 06-26-2023 End: 06-26-[address] Luis Caldera Work Phone: [facility] Work Phone: Start: 06-26-2023 End: 06-26-[address] Luis Caldera Work Phone: [facility] Start: 06-26-[address] Adam Caldera Work Phone: [facility] Start: 06-25-2023 End: 06-25-[address] Luis Caldera Work Phone: [facility] Work Phone: Start: 06-25-2023 End: 06-25-[address] Luis Caldera Work Phone: [facility] Start: 06-25-[address] Adam Caldera Work Phone: [facility] Start: 06-24-2023 End: 06-24-[address] Luis Caldera Work Phone: [facility] Work Phone: Start: 06-24-2023 End: 06-24-[address] Luis Caldera Work Phone: [facility] Start: 06-24-[address] Adam Caldera Work Phone: [facility] Start: 06-17-2023 End: 06-17-[address] Luis Caldera Work Phone: [facility] Work Phone: Start: 06-17-2023 End: 06-17-[address] Luis Caldera Work Phone: [facility] Start: 06-10-2023 End: 06-10-[address] Luis Caldera Work Phone: [facility] Work Phone: Start: 06-10-2023 End: 06-10-[address] Luis Caldera Work Phone: [facility] Start: 06-10-[address] Adam Caldera Work Phone: [facility] Start: 06-03-2023 End: 06-03-2023 Admission to same day surgery center Dr. Luis Caldera Work Phone: [facility] Start: 06-03-2023 End: 06-03-[address] Luis Caldera Work Phone: [facility] Work Phone: Start: 06-03-2023 End: 06-03-2023 Dr. Luis Caldera Work Phone: [facility] Start: 05-20-2023 End: 05-20-[address] Luis Caldera Work Phone: [facility] Work Phone: Start: 05-20-2023 End: 05-20-[address] Luis Caldera Work Phone: [facility] Start: 05-20-2023 End: 05-20-2023 Dr. Luis Caldera Work Phone: [facility] Start: 05-15-2023 End: 05-15-[address] Luis Caldera Work Phone: [facility] Work Phone: Start: 05-15-2023 End: 05-15-[address] Luis Caldera Work Phone: [facility] Start: 05-15-2023 End: 05-15-2023 Dr. Luis Caldera Work Phone: [facility] Start: 05-06-2023 End: 05-06-[address] Luis Caldera Work Phone: [facility] Work Phone: Start: 05-06-2023 End: 05-06-[address] Luis Caldera Work Phone: [facility] Start: 05-06-2023 End: 05-06-2023 Dr. Luis Caldera Work Phone: [facility] Start: 04-29-2023 End: 04-29-[address] Maggy Roberts Work Phone: [facility] Work Phone: Start: 04-29-2023 End: 04-29-[address] Luis Caldera Work Phone: [facility] Start: 04-29-2023 End: 04-29-2023 Dr. Maggy Roberts Work Phone: [facility] Start: 04-15-2023 End: 04-15-[address] Luis Caldera Work Phone: [facility] Start: 04-15-2023 End: 04-15-2023 Dr. Maggy Roberts Work Phone: [facility] Start: 04-09-2023 End: 04-09-[address] Maggy Roberts Work Phone: [facility] Work Phone: Start: 04-09-2023 End: 04-09-[address] Luis Caldera Work Phone: [facility] Start: 04-09-2023 End: 04-09-2023 Dr. Maggy Roberts Work Phone: [facility] Start: 04-08-2023 End: 04-08-[address] Luis Caldera Work Phone: [facility] Start: 04-08-2023 End: 04-08-2023 Dr. Maggy Roberts Work Phone: [facility] Start: 04-01-2023 End: 04-01-[address] Maggy Roberts Work Phone: [facility] Work Phone: Start: 04-01-2023 End: 04-01-[address] Luis Caldera Work Phone: [facility] Start: 04-01-2023 End: 04-01-2023 Dr. Maggy Roberts Work Phone: [facility] Start: 03-27-2023 End: 03-27-[address] Luis Caldera Work Phone: [facility] Work Phone: Start: 03-27-2023 End: 03-27-2023 Dr. Maggy Roberts Work Phone: [facility] Work Phone: Start: 03-25-2023 End: 03-25-[address] Maggy Roberts Work Phone: [facility] Work Phone: Start: 03-25-2023 End: 03-25-[address] Luis Caldera Work Phone: [facility] Start: 03-25-2023 End: 03-25-2023 Dr. Maggy Roberts Work Phone: [facility] Start: 03-11-2023 End: 03-11-[address] Maggy Roberts Work Phone: [facility] Work Phone: Start: 03-11-2023 End: 03-11-[address] Luis Caldera Work Phone: [facility] Start: 03-11-2023 End: 03-11-2023 Dr. Maggy Roberts Work Phone: [facility] Start: 03-04-[address] Adam Caldera Work Phone: [facility] Start: 03-04-2023 Dr. Maggy benavides Work Phone: [facility] Start: 03-01-[address] Adam Caldera Work Phone: [facility] Start: 03-01-2023 Dr. Maggy benavides Work Phone: [facility] Start: 02-25-[address] Adam Caldera Work Phone: [facility] Start: 02-25-2023 Dr. Maggy Bonilla line Work Phone: [facility] Start: 02-22-[address] Adam Caldera Work Phone: [facility] Start: 02-22-2023 Dr. Maggy Bonilla line Work Phone: [facility] Start: 02-20-2023 Dr. Maggy Bonilla line Work Phone: [facility] Start: 02-18-2023 End: 02-18-2023 Dr. Maggy Roberts Work Phone: [facility] Work Phone: Start: 02-14-2023 Dr. Maggy Bonilla line Work Phone: [facility] Start: 02-13-2023 Dr. Maggy Bonilla line Work Phone: [facility] Work Phone: Start: 02-12-2023 Dr. Maggy Bonilla line Work Phone: [facility] Work Phone: Start: 02-12-2023 Dr. Maggy Bonilla line Work Phone: [facility] Start: 02-11-2023 End: 02-13-2023 Evaluation and management of inpatient Dr. Maggy Roberts Work Phone: [facility] Work Phone: Start: 02-11-2023 End: 02-13-2023 Dr. Maggy Roberts Work Phone: [facility] Work Phone: Start: 02-10-2023 End: 02-11-2023 Emergency department patient visit Dr. Maggy Roberts Work Phone: [facility] Work Phone: Start: 02-10-2023 End: 02-11-2023 Dr. Maggy Roberts Work Phone: [facility] Work Phone: Start: 02-07-2023 Dr. Maggy Bonilla line Work Phone: [facility] Start: 02-05-2023 Dr. Maggy Bonilla line Work Phone: [facility] Work Phone: Start: 02-05-2023 End: 02-05-2023 Dr. Maggy Roberts Work Phone: [facility] Work Phone: Start: 02-04-2023 Dr. Maggy Bonilla line Work Phone: [facility] Work Phone: Start: 02-03-2023 End: 02-05-2023 Dr. Maggy Roberts Work Phone: [facility] Work Phone: Start: 02-02-2023 Dr. Maggy Bonilla line Work Phone: [facility] Work Phone: Start: 02-01-2023 Dr. Maggy Bonilla line Work Phone: [facility] Start: 02-01-2023 Dr. Maggy Bonilla line Work Phone: [facility] Work Phone: Start: 01-31-2023 Dr. Maggy Bonilla line Work Phone: [facility] Start: 01-31-2023 Dr. Maggy Bonilla line Work Phone: [facility] Work Phone: Start: 01-30-2023 Dr. Maggy Bonilla line Work Phone: [facility] Start: 01-30-2023 Dr. Maggy Bonilla line Work Phone: [facility] Start: 01-29-2023 Dr. Maggy Bonilla line Work Phone: [facility] Work Phone: Start: 01-29-2023 Dr. Maggy Bonilla line Work Phone: [facility] Start: 01-28-2023 Telephone encounter Luis Caldera MD Work Phone: [facility] Comment on above: Immunizations Start: 01-28-2023 Dr. Maggy Bonilla line Work Phone: [facility] Work Phone: Start: 01-28-2023 End: 01-28-2023 Dr. Maggy Roberts Work Phone: [facility] Work Phone: Start: 01-27-2023 Evaluation and management of inpatient [facility] Maggy Roberts [facility] Work [facility]: Start: 01-27-2023 End: 02-05-2023 Dr. Maggy Roberts [facility] Work Phone: Start: 01-26-2023 Non-patient / Non-visit Dr. Eddie Roberts Work Phone: [facility] Start: 01-26-2023 Dr. Maggy Bonilla line Work Phone: [facility] Start: 01-26-2023 Non-patient / Non-visit Dr. Eddie Roberts Work Phone: [facility] Work Phone: Start: 01-26-2023 Dr. Maggy Bonilla line Work Phone: [facility] Work Phone: Start: 01-25-2023 Non-patient / Non-visit Dr. Eddie Roberts Work Phone: [facility] Start: 01-25-2023 Dr. Maggy Bonilla line Work Phone: [facility] Start: 01-25-2023 Non-patient / Non-visit Dr. Eddie Roberts Work Phone: [facility] Work Phone: Start: 01-25-2023 Dr. Maggy Bonilla line Work Phone: [facility] Work Phone: Start: 01-24-2023 Non-patient / Non-visit Dr. Eddie Roberts Work Phone: [facility] Start: 01-24-2023 Dr. Maggy Bonilla line Work Phone: [facility] Start: 01-24-2023 Telephone encounter Luis Caldera MD Work Phone: [facility] Comment on above: Patient Update Start: 01-24-2023 Non-patient / Non-visit Dr. Eddie Roberts Work Phone: [facility] Start: 01-24-2023 Dr. Maggy benavides Work Phone: [facility] Start: 01-24-2023 Non-patient / Non-visit Dr. Eddie Roberts Work Phone: [facility] Work Phone: Start: 01-24-2023 End: 01-24-2023 Dr. Maggy Roberts Work Phone: [facility] Work Phone: Start: 01-23-2023 Non-patient / Non-visit Dr. Eddie Roberts Work Phone: [facility] Start: 01-23-2023 Dr. Maggy Bonilla line Work Phone: [facility] Start: 01-23-2023 Non-patient / Non-visit Dr. Eddie Roberts Work Phone: [facility] Start: 01-23-2023 Dr. Maggy Bonilla line Work Phone: [facility] Start: 01-22-2023 Non-patient / Non-visit Dr. Eddie Roberts Work Phone: [facility] Start: 01-22-2023 Dr. Maggy Bonilla line Work Phone: [facility] Start: 01-22-2023 Non-patient / Non-visit Dr. Eddie Roberts Work Phone: [facility] Start: 01-22-2023 Dr. Maggy Bonilla line Work Phone: [facility] Start: 01-22-2023 Non-patient / Non-visit Dr. Eddie Roberts Work Phone: [facility] Work Phone: Start: 01-22-2023 Dr. Maggy Bonilla line Work Phone: [facility] Work Phone: Start: 01-21-2023 End: 01-21-2023 Dr. Maggy Roberts Work Phone: [facility] Work Phone: Start: 01-21-2023 Non-patient / Non-visit Dr. Eddie Roberts Work Phone: [facility] Start: 01-21-2023 Dr. Maggy Bonilla line Work Phone: [facility] Start: 01-21-2023 Non-patient / Non-visit Dr. Eddie Roberts Work Phone: [facility] Work Phone: Start: 01-21-2023 Dr. Maggy Bonilla line Work Phone: [facility] Work Phone: Start: 01-21-2023 End: 01-26-2023 Evaluation and management of inpatient [facility] Maggy [facility] Work [facility]: Start: 01-21-2023 End: 01-26-2023 Dr. Maggy Roberts [facility] Work [facility]: Start: 01-08-2023 Non-patient / Non-visit Dr. Eddie Roberts Work Phone: [facility] Work Phone: Start: 01-08-2023 Dr. Maggy Bonilla line Work Phone: [facility] Work Phone: Start: 01-07-2023 Non-patient / Non-visit Dr. Eddie Roberts Work Phone: [facility] Work Phone: Start: 01-07-2023 Dr. Maggy Bonilla line Work Phone: [facility] Work Phone: Start: 01-06-2023 Non-patient / Non-visit Dr. Eddie Roberts Work Phone: [facility] Work Phone: Start: 01-06-2023 Dr. Maggy Bonilla line Work Phone: [facility] Work Phone: Start: 01-05-2023 End: 01-08-2023 Evaluation and management of inpatient Dr. Maggy Roberts [facility] Work [facility]: Start: 01-05-2023 End: 01-08-2023 Dr. Maggy Roberts [facility] Work [facility]: Start: 01-05-2023 Non-patient / Non-visit Dr. Eddie Roberts Work Phone: [facility] Work Phone: Start: 01-05-2023 Dr. Maggy benavides Work Phone: [facility] Work Phone: Start: 01-04-2023 Evaluation and management of inpatient [facility] Start: 01-04-2023 Non-patient / Non-visit Dr. Eddie Roberts Work Phone: [facility] Work Phone: Start: 01-04-2023 observation encounter [facility] Work Phone: Start: 01-04-2023 Dr. Maggy benavides Work Phone: [facility] Work Phone: Start: 01-04-2023 Telephone encounter Luis Caldera MD Work Phone: [facility] Comment on above: Appointment Start: 01-03-2023 Telephone encounter Luis Caldera MD Work Phone: [facility] Comment on above: Appointment; Patient Update Start: 01-03-2023 End: 01-03-2023 ambulatory Justina Escoto PT [facility] Comment on above: Spinal stenosis, lum bar region, without neurogenic claudication (Primary Dx); Primary osteoarthritis of both knees Start: 12-31-2022 End: 12-31-2022 ambulatory Ira Ramos SERVICE EMPLOYEE Work Phone: [facility] Comment on above: Spinal stenosis, lum bar region, without neurogenic claudication (Primary Dx); Primary osteoarthritis of both knees Start: 12-27-2022 End: 12-27-2022 ambulatory Ira Ramos SERVICE EMPLOYEE Work Phone: [facility] Comment on above: Spinal stenosis, lum bar region, without neurogenic claudication (Primary Dx); Primary osteoarthritis of both knees Start: 12-24-2022 End: 12-24-2022 ambulatory Justina O'Rafa PT [facility] Comment on above: Spinal stenosis, lum bar region, without neurogenic claudication (Primary Dx); Primary osteoarthritis of both knees Start: 12-17-2022 End: 12-17-2022 ambulatory Justina O'Rafa PT [facility] Comment on above: Spinal stenosis, lum bar region, without neurogenic claudication (Primary Dx); Primary osteoarthritis of both knees Start: 12-14-2022 End: 12-14-2022 ambulatory Justina O'Rafa PT [facility] Comment on above: Spinal stenosis, lum bar region, without neurogenic claudication (Primary Dx); Primary osteoarthritis of both knees Start: 12-12-2022 End: 12-12-2022 ambulatory Justina O'Rafa PT [facility] Comment on above: Spinal stenosis, lum bar region, without neurogenic claudication (Primary Dx); Primary osteoarthritis of both knees Start: 11-20-2022 Refill Abdulaziz Caldera MD Work Phone: [facility] Comment on above: Refill Request Start: 11-19-2022 Telephone encounter Valencia Pascual MA [facility] Comment on above: Anticoagulation Start: 10-22-2022 End: 10-22-2022 Patient encounter procedure Zachary Obregon Work Phone: Podiatry Comment on above: Onychomycosis (Prima ry Dx); Pain in toe of left foot; Amputated toe of right foot (HCC); Diabetic polyneuropathy associated with type 2 diabetes mellitus (HCC) Start: 09-25-2022 Telephone encounter Luis Caldera MD Work Phone: [facility] Comment on above: Anticoagulation Start: 09-07-2022 Telephone encounter Jojo galan MD Work Phone: Neurology Comment on above: Appointment Start: 09-07-2022 End: 09-07-2022 Office outpatient visit 25 minutes Jojo Kaur MD Work Phone: Neurology Comment on above: Driving safety issue (Primary Dx) Start: 08-28-2022 Telephone encounter Luis Caldera MD Work Phone: [facility] Comment on above: Anticoagulation Start: 08-16-2022 Refill Abdulaziz Caldera MD Work Phone: [facility] Comment on above: Refill Request Start: 08-14-2022 Telephone encounter Luis Caldera MD Work Phone: [facility] Comment on above: Anticoagulation Start: 08-09-2022 End: 08-09-2022 Patient encounter procedure Abdulaziz Caldera MD Work Phone: [facility] Comment on above: Type 2 diabetes almaz [...] Telephone encounter Luis Caldera MD Work Phone: [facility] Comment on above: checking on medicati on Start: 08-06-2022 End: 08-06-2022 Patient encounter procedure Zachary Jaimes MD Work Phone: Otolaryngology Comment on above: Dizziness (Primary D x); Chronic frontal sinusitis Start: 07-31-2022 Telephone encounter Luis Caldera MD Work Phone: [facility] Comment on above: Anticoagulation Start: 07-26-2022 Telephone encounter Luis Caldera MD Work Phone: [facility] Comment on above: Home Health-Nursing Update Start: 07-25-2022 Refill Abdulaziz Caldera MD Work Phone: [facility] Comment on above: Refill Request Start: 07-17-2022 Telephone encounter Luis Caldera MD Work Phone: [facility] Comment on above: [facility] PT POC OT plan of care Start: 07-13-2022 Telephone encounter Luis Caldera MD Work Phone: [facility] Comment on above: Nursing Plan of C are Update Start: 07-12-2022 Telephone encounter Luis Caldera MD Work Phone: [facility] Comment on above: Orders Start: 07-11-2022 Non-patient / Non-visit Dr. Praveen Caldera Work Phone: [facility] Start: 07-11-2022 Non-patient / Non-visit Dr. Praveen Caldera Work Phone: [facility] Start: 07-10-2022 Non-patient / Non-visit Dr. Praveen Caldera Work Phone: [facility] Start: 07-10-2022 Non-patient / Non-visit Dr. Praveen Caldera Work Phone: [facility] Start: 07-09-2022 End: 07-11-2022 Evaluation and management of inpatient Dr. Luis Caldera Work Phone: [facility] Start: 07-09-2022 Refill Amanda VELASCO [facility] Comment on above: Opened In Error Refill Request Start: 07-05-2022 E-mail encounter fro m caregiver Jojo Kaur MD Work Phone: [facility] Start: 07-05-2022 Patient encounter procedure Jojo Kaur MD Work Phone: Neurology Comment on above: Appointment Needs Re scheduled: 08/21/[address] Kaur Start: 06-25-2022 Refill Abdulaziz Caldera MD Work Phone: [facility] Comment on above: Refill Request Start: 05-16-2022 Refill Abdulaziz Caldera MD Work Phone: [facility] Comment on above: Refill Request Start: 04-17-2022 Telephone encounter Justina fry [employer] MACHINE OPERATOR Work Phone: Adult Psychology Comment on above: behavioral health so cial work Start: 04-17-2022 End: 04-17-2022 Patient encounter procedure Jojo Kaur MD Work Phone: Neurology Comment on above: Generalized anxiety disorder (Primary Dx); Polyneuropathy Start: 04-16-2022 End: 04-16-2022 Patient encounter procedure Abdulaziz Caldera MD Work Phone: [facility] Comment on above: Type 2 diabetes almaz [...] encounter procedure Roselia Madrigal APRN.CNP Work Phone: [facility] Comment on above: Generalized weakness (Primary Dx); Encounter for immunization; Mild depression Start: 04-04-2022 Telephone encounter Luis Caldera MD Work Phone: [facility] Comment on above: Anticoagulation Start: 03-30-2022 End: 03-30-2022 Patient encounter procedure Zachary Obregon Work Phone: Podiatry Comment on above: Onychomycosis (Prima ry Dx); Pain in toe of left foot; Amputated toe of right foot (HCC); Diabetic polyneuropathy associated with type 2 diabetes mellitus (HCC) Start: 03-23-2022 End: 03-23-2022 ambulatory Rosa Elena Lemon PT [facility] Comment on above: Abnormality of gait due to impairment of balance (Primary Dx) Start: 03-22-2022 Refill Abdulaziz Caldera MD Work Phone: [facility] Comment on above: Refill Request Start: 03-15-2022 End: 03-15-2022 ambulatory Karen Gus SERVICE EMPLOYEE Work Phone: [facility] Comment on above: Abnormality of gait due to impairment of balance (Primary Dx) Start: 03-12-2022 End: 03-12-2022 ambulatory Karen Gus SERVICE EMPLOYEE Work Phone: [facility] Comment on above: Abnormality of gait due to impairment of balance (Primary Dx) Start: 03-09-2022 End: 03-09-2022 ambulatory Rosa Elena Lemon PT [facility] Comment on above: Abnormality of gait due to impairment of balance (Primary Dx) Start: 03-07-2022 Telephone encounter Luis Caldera MD Work Phone: [facility] Comment on above: Anticoagulation Start: 03-07-2022 End: 03-07-[address] Luis Caldera Work Phone: [facility] Work Phone: Start: 03-07-2022 End: 03-07-[address] Luis Caldera Work Phone: [facility] Specimen Start: 03-07-2022 End: 03-07-2022 Patient encounter procedure Abdulaziz Caldera MD Work Phone: [facility] Comment on above: Generalized weakness (Primary Dx); Supratherapeutic INR; ANTHONY (acute kidney injury) (HCC) Start: 03-05-2022 End: 03-05-2022 ambulatory Rosa Elena Lemon PT [facility] Comment on above: Abnormality of gait due to impairment of balance (Primary Dx) Start: 03-02-2022 End: 03-02-2022 Emergency department patient visit Dr. Luis Caldera Work Phone: [facility] Start: 03-02-2022 End: 03-02-2022 ambulatory Rosa Elena Lemon PT [facility] Comment on above: Abnormality of gait due to impairment of balance (Primary Dx) Start: 02-26-2022 End: 02-26-2022 ambulatory Rosa Elena Lemon PT [facility] Comment on above: Abnormality of gait due to impairment of balance (Primary Dx) Start: 02-23-2022 End: 02-23-2022 ambulatory Karen Weber SERVICE EMPLOYEE Work Phone: [facility] Comment on above: Abnormality of gait due to impairment of balance (Primary Dx) Start: 02-14-2022 End: 02-14-2022 ambulatory Rosa Elena Lemon PT [facility] Comment on above: Abnormality of gait due to impairment of balance (Primary Dx) Start: 02-09-2022 End: 02-09-2022 ambulatory Rosa Elena Lemon PT [facility] Comment on above: Abnormality of gait due to impairment of balance (Primary Dx) Start: 02-06-2022 Refill Abdulaziz Caldera MD Work Phone: [facility] Comment on above: Prescription Refills Start: 02-02-2022 End: 02-02-2022 ambulatory Karen Weber SERVICE EMPLOYEE Work Phone: [facility] Comment on above: Abnormality of gait due to impairment of balance (Primary Dx) Start: 01-31-2022 Refill Abdulaziz Caldera MD Work Phone: [facility] Comment on above: Refill Request Start: 01-30-2022 End: 01-30-2022 ambulatory Karen Weber SERVICE EMPLOYEE Work Phone: [facility] Comment on above: Abnormality of gait due to impairment of balance (Primary Dx) Start: 01-23-2022 End: 01-23-2022 ambulatory Karen Weber SERVICE EMPLOYEE Work Phone: [facility] Comment on above: Abnormality of gait due to impairment of balance (Primary Dx) Refill Request; Refi ll Request Start: 01-17-2022 Telephone encounter Luis Caldera MD Work Phone: [facility] Comment on above: Question Start: 01-12-2022 End: 01-12-2022 ambulatory Rosa Elena Poon PT [facility] Comment on above: Abnormality of gait due to impairment of balance (Primary Dx) Start: 01-11-2022 Telephone encounter Roselia miguel APRN.COMMUNICATIONS ENGINEERING TECHNICIAN Work Phone: [facility] Comment on above: Patient Question; Me dication Question; Referral Request Start: 01-10-2022 Telephone encounter Justina Monique APRN.COMMUNICATIONS ENGINEERING TECHNICIAN Work Phone: Cardiology Comment on above: Results [...] type Start: 01-02-2022 Telephone encounter Justina Monique APRN.COMMUNICATIONS ENGINEERING TECHNICIAN Work Phone: [facility] Comment on above: Results Start: 01-01-2022 End: 01-01-2022 Patient encounter procedure Justina Monique APRN.COMMUNICATIONS ENGINEERING TECHNICIAN Work Phone: Cardiology Comment on above: Hyperlipidemia with target LDL less than 100 (Primary Dx); Primary hypertension; Thoracic aortic aneurysm without rupture (HCC); 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 Praveen Caldera Work Phone: [facility] Start: 12-28-2021 Non-patient / Non-visit Dr. Praveen Caldera Work Phone: [facility] Start: 12-28-2021 End: 12-29-2021 Evaluation and management of inpatient Dr. Luis Caldera Work Phone: [facility] Start: 12-27-2021 Non-patient / Non-visit Dr. Praveen Caldera Work Phone: [facility] Start: 12-27-2021 End: 12-27-2021 Emergency department patient visit DR. MELANIA WORKMAN MD. Facility:[facility] Start: 12-27-2021 End: 12-27-2021 Emergency department patient visit DR MELANIA WORKMAN MD [facility] Start: 12-14-2021 End: 12-14-2021 Patient encounter procedure Abdulaziz Caldera MD Work Phone: [facility] Comment on above: COVID-19 (Primary Dx ) Start: 12-08-2021 End: 12-08-2021 ambulatory Abdulaziz Caldera MD Work Phone: [facility] Comment on above: COVID-19 (Primary Dx ) Start: 12-08-2021 End: 12-08-2021 Telemedicine consultation with patient Abdulaziz Caldera MD Work Phone: [facility] Start: 12-08-2021 Telephone encounter Luis Caldera MD Work Phone: [facility] Comment on above: Patient Question Start: 12-06-2021 End: 12-07-2021 Emergency department patient visit [facility] Start: 11-20-2021 Refill Abdulaziz Caldera MD Work Phone: Orthopaedics Start: 10-23-2021 End: 10-23-2021 Patient encounter procedure Marcella Park PA-C Work Phone: General Surgery Comment on above: Diverticulosis (Prim barrington Dx); Cecal polyp Start: 10-10-2021 End: 10-10-2021 Subsequent hospital visit by physician Richard Jones MD Work Phone: Ambulatory Surgery Comment on above: Colon cancer screeni ng [Z12.11] Start: 10-05-2021 Refill Abdulaziz Caldera MD Work Phone: [facility] [place] Comment on above: Refill Request (SEE RX [...] QUADRIVALENT HIGH DOSE AGE 65+ Roselia Podlogar STOGY ROLLER.COMMUNICATIONS ENGINEERING TECHNICIAN Work Phone: Start: 04-06-2022 [employer] COVID-19 BIVALENT BOOSTER VACCINE, AGE 12+ YR Roselia Podlogar STOGY ROLLER.COMMUNICATIONS ENGINEERING TECHNICIAN Work Phone: Start: 04-06-2022 Adult depression screening assessment Roselia Podlogar STOGY ROLLER.COMMUNICATIONS ENGINEERING TECHNICIAN Work Phone: Start: 03-07-2022 PROTHROMBIN TIME/PT Abdulaziz Caldera MD Work Phone: Start: 03-07-2022 Adult depression screening assessment Abdulaziz Caldera MD Work Phone: Start: 03-02-2022 CT of head without contrast Dr. Camron Caldera Work Phone: Start: 03-02-2022 Plain chest X-ray Dr. Luis Caldera Work Phone: Start: 01-09-2022 Echo tthrc r-t 2d w/wom-mode compl spec&colr d Justina Monique STOGY ROLLER.COMMUNICATIONS ENGINEERING TECHNICIAN Work Phone: Start: 01-01-2022 Urnls dip stick/tablet [...] ca scrn not hi rsk ind Marcella PA-C Work Phone: Start: 10-10-2021 Gluc bld [...] Author Start: 10-11-2031 Colonoscopy COLONOSCOPY [facility] Start: 10-11-2031 COLORECTAL CANCER SCREENING COLORECTAL CANCER SCREENING [facility] Start: 10-10-2024 Colonoscopy COLONOSCOPY [facility] Start: 10-10-2024 COLORECTAL CANCER SCREENING COLORECTAL CANCER SCREENING [facility] Start: 01-05-2024 ANNUAL PCP TEAM AIRCRAFT SYSTEMS TECHNICIAN MARLENE DISEASE VISIT ANNUAL PCP TEAM CHRONIC DISEASE VISIT [facility] Start: 01-05-2024 BP CONTROLLED (<130/80) BP CONTROLLE D (<130/80) [facility] Start: 12-04-2023 BP CONTROLLED (<130/80) BP CONTROLLE D (<130/80) [facility] Start: 11-20-2023 ANNUAL PCP TEAM AIRCRAFT SYSTEMS TECHNICIAN MARLENE DISEASE VISIT ANNUAL PCP TEAM CHRONIC DISEASE VISIT [facility] Start: 11-20-2023 BP CONTROLLED (<130/80) BP CONTROLLE D (<130/80) [facility] Start: 09-07-2023 BP CONTROLLED (<130/80) BP CONTROLLE D (<130/80) [facility] Start: 08-13-2023 HEMOGLOBIN/HEMATOCRIT HEMOGLOBIN/HEM ATOCRIT [facility] Start: 08-13-2023 SERUM CREATININE SERUM CREATININE Cl [facility] Start: 08-09-2023 ANNUAL PCP TEAM AIRCRAFT SYSTEMS TECHNICIAN MARLENE DISEASE VISIT ANNUAL PCP TEAM CHRONIC DISEASE VISIT [facility] Start: 08-09-2023 BP CONTROLLED (<130/80) BP CONTROLLE D (<130/80) [facility] Start: 07-12-2023 ANNUAL PCP TEAM AIRCRAFT SYSTEMS TECHNICIAN MARLENE DISEASE VISIT ANNUAL PCP TEAM CHRONIC DISEASE VISIT [facility] Start: 07-12-2023 BP CONTROLLED (<130/80) BP CONTROLLE D (<130/80) [facility] Start: 06-03-2023 Anes dx/ther nerve block/injection prone pos ANESTH N BLOCK/INJ PRONE [facility] Start: 06-03-2023 Njx dx/ther sbst int rlmnr lmbr/sac w/img gdn NJX INTERLAMINAR LMBR/SAC [facility] Start: 06-03-2023 Injection using fluoroscopic guidance [facility] Start: 06-03-2023 Patient discharge [facility] Start: 04-17-2023 BP CONTROLLED (<130/80) BP CONTROLLE D (<130/80) [facility] Start: 04-16-2023 ANNUAL PCP TEAM AIRCRAFT SYSTEMS TECHNICIAN MARLENE DISEASE VISIT ANNUAL PCP TEAM CHRONIC DISEASE VISIT [facility] Start: 04-06-2023 Adult depression scr eening assessment DEPRESSION SCREENING [facility] Start: 04-06-2023 ANNUAL PCP TEAM AIRCRAFT SYSTEMS TECHNICIAN MARLENE DISEASE VISIT ANNUAL PCP TEAM CHRONIC DISEASE VISIT [facility] Start: 04-06-2023 BP CONTROLLED (<130/80) BP CONTROLLE D (<130/80) [facility] Start: 03-30-2023 3 comp foot exam completed DIABETIC FOOT EXAM [facility] Start: 03-15-2023 Influenza vaccination INFLUENZA (#1) [facility] Start: 03-07-2023 Adult depression scr eening assessment DEPRESSION SCREENING [facility] Start: 03-07-2023 ANNUAL PCP TEAM AIRCRAFT SYSTEMS TECHNICIAN MARLENE DISEASE VISIT ANNUAL PCP TEAM CHRONIC DISEASE VISIT [facility] Start: 03-07-2023 BP CONTROLLED (<130/80) BP CONTROLLE D (<130/80) [facility] Start: 03-07-2023 SERUM CREATININE SERUM CREATININE [facility] Start: 03-05-2023 BP CONTROLLED (<130/80) BP CONTROLLE D (<130/80) [facility] Start: 03-02-2023 Hepatitis B screening URINE ALBUMIN:CREATININE RATIO [facility] Start: 02-13-2023 Patient discharge [facility] Start: 02-12-2023 Care regimes management [facility] Start: 02-12-2023 Notification of physician [facility] Start: 02-12-2023 [facility] Start: 02-12-2023 Blood culture [facility] Start: 02-12-2023 End: 02-12-2023 [facility] Start: 02-11-2023 End: 02-11-2023 Blood culture [facility] Start: 02-11-2023 Assessment of risk o f venous thromboembolism [facility] Start: 02-11-2023 Consultation [facility] Start: 02-11-2023 Insertion of cathete r into peripheral vein [facility] Start: 02-11-2023 Providing care accor ding to standard [facility] Start: 02-11-2023 Provision of activit y privileges [facility] Start: 02-11-2023 Referral to occupati onal therapist [facility] Start: 02-11-2023 Referral to service [facility] Start: 02-11-2023 [facility] Start: 02-11-2023 Admission procedure [facility] Start: 02-11-2023 [facility] Start: 02-11-2023 Patient referral to dietitian [facility] Start: 02-10-2023 End: 02-10-2023 [facility] Start: 02-10-2023 End: 02-10-2023 Blood culture [facility] Start: 02-10-2023 Hemoglobin A1c/Hemoglobin.total in Blood HBA1C [facility] Start: 02-05-2023 Patient discharge [facility] Start: 02-04-2023 Assessment of risk o f venous thromboembolism [facility] Start: 02-04-2023 Bedrest [facility] Start: 02-04-2023 Elevation of head of bed [facility] Start: 02-04-2023 Taking patient vital signs [facility] Start: 02-04-2023 Wound care [facility] Start: 02-04-2023 [facility] Start: 02-04-2023 Catheterization of vein [facility] Start: 02-04-2023 Notification of physician [facility] Start: 02-04-2023 [facility] Start: 02-01-2023 Catheterization of vein [facility] Start: 02-01-2023 Notification of physician [facility] Start: 02-01-2023 [facility] Start: 02-01-2023 [facility] Start: 01-30-2023 Referral to elevators inspector [facility] Start: 01-30-2023 End: 01-30-2023 Administration of blood product [facility] Start: 01-29-2023 Speech therapy assessment [facility] Start: 01-29-2023 [facility] Start: 01-28-2023 End: 01-29-2023 [facility] Start: 01-27-2023 Application of intermittent pneumatic compression device [facility] Start: 01-27-2023 Following clinical p athway protocol [facility] Start: 01-27-2023 Methicillin resistan t Staphylococcus aureus screening test [facility] Start: 01-27-2023 Aspiration precautions [facility] Start: 01-27-2023 Assessment of risk o f venous thromboembolism [facility] Start: 01-27-2023 Care regimes management [facility] Start: 01-27-2023 Fall prevention [facility] Start: 01-27-2023 Insertion of cathete r into peripheral vein [facility] Start: 01-27-2023 Introduction of urin barrington catheter [facility] Start: 01-27-2023 Measuring intake and output [facility] Start: 01-27-2023 Providing care accor ding to standard [facility] Start: 01-27-2023 Provision of activit y privileges [facility] Start: 01-27-2023 Referral to gastroenterology service [facility] Start: 01-27-2023 Referral to occupati onal therapist [facility] Start: 01-27-2023 Referral to service [facility] Start: 01-27-2023 [facility] Start: 01-27-2023 Admission procedure [facility] Start: 01-27-2023 CT Chest and Abdomen and Pelvis WO and W contrast IV [facility] Start: 01-27-2023 CT of thorax, abdome n and pelvis with contrast CTA Chst, Abd, Pel W and/or WO [facility] Start: 01-27-2023 Blood chemistry [facility] Start: 01-27-2023 End: 01-28-2023 [facility] Start: 01-27-2023 Patient referral to dietitian [facility] Start: 01-26-2023 Patient discharge [facility] Start: 01-24-2023 Speech therapy assessment [facility] Start: 01-24-2023 Speech therapy assessment [facility] Start: 01-22-2023 Referral to elevators inspector [facility] Start: 01-21-2023 Administration of bl ood product [facility] Start: 01-21-2023 Catheterization of vein [facility] Start: 01-21-2023 Application of intermittent pneumatic compression device [facility] Start: 01-21-2023 Following clinical p athway protocol [facility] Start: 01-21-2023 Care regimes management [facility] Start: 01-21-2023 Notification of physician [facility] Start: 01-21-2023 Cardiac monitoring [facility] Start: 01-21-2023 Referral to gastroenterology service [facility] Start: 01-21-2023 End: 01-21-2023 [facility] Start: 01-21-2023 Oxygen therapy [facility] Start: 01-21-2023 Ambulation without limitation [facility] Start: 01-21-2023 Documentation procedure [facility] Start: 01-21-2023 Assessment of risk o f venous thromboembolism [facility] Start: 01-21-2023 Continuous pulse oximetry [facility] Start: 01-21-2023 Insertion of cathete r into peripheral vein [facility] Start: 01-21-2023 Measuring intake and output [facility] Start: 01-21-2023 Providing care accor ding to standard [facility] Start: 01-21-2023 Referral to occupati onal therapist [facility] Start: 01-21-2023 Referral to service [facility] Start: 01-21-2023 Verification routine [facility] Start: 01-21-2023 Vital signs measurements [facility] Start: 01-21-2023 Admission procedure [facility] Start: 01-21-2023 Transfusion of red b lood cells [facility] Start: 01-08-2023 Patient discharge [facility] Start: 01-05-2023 BP CONTROLLED (<130/80) BP CONTROLLE D (<130/80) [facility] Start: 01-05-2023 Admission procedure [facility] Start: 01-05-2023 Telepractice consultation [facility] Start: 01-04-2023 Application of intermittent pneumatic compression device [facility] Start: 01-04-2023 Following clinical p athway protocol [facility] Start: 01-04-2023 Aspiration precautions [facility] Start: 01-04-2023 Assessment of risk o f venous thromboembolism [facility] Start: 01-04-2023 Cardiac monitoring [facility] Start: 01-04-2023 Care regimes management [facility] Start: 01-04-2023 Catheterization of vein [facility] Start: 01-04-2023 Elevation of head of bed [facility] Start: 01-04-2023 Exercises [facility] Start: 01-04-2023 Fall prevention [facility] Start: 01-04-2023 Inhalation therapy procedure [facility] Start: 01-04-2023 Insertion of cathete r into peripheral vein [facility] Start: 01-04-2023 Introduction of urin barrington catheter [facility] Start: 01-04-2023 Measuring intake and output [facility] Start: 01-04-2023 Notification of physician [facility] Start: 01-04-2023 Providing care accor ding to standard [facility] Start: 01-04-2023 Provision of activit y privileges [facility] Start: 01-04-2023 Referral to occupati onal therapist [facility] Start: 01-04-2023 Referral to service [facility] Start: 01-04-2023 Tobacco use cessatio n education [facility] Start: 01-04-2023 Verification routine [facility] Start: 01-04-2023 Admission procedure [facility] Start: 01-04-2023 End: 01-04-2023 [facility] Start: 01-04-2023 End: 01-04-2023 Blood culture [facility] Start: 01-04-2023 Patient referral to dietitian [facility] Start: 01-01-2023 ANNUAL PCP TEAM AIRCRAFT SYSTEMS TECHNICIAN MARLENE DISEASE VISIT ANNUAL PCP TEAM CHRONIC DISEASE VISIT [facility] Start: 01-01-2023 BP CONTROLLED (<130/80) BP CONTROLLE D (<130/80) [facility] Start: 01-01-2023 Hepatitis B surface antibody level LDL CHOLESTEROL [facility] Start: 01-01-2023 SERUM CREATININE SERUM CREATININE Cl [facility] Start: 12-14-2022 ANNUAL PCP TEAM AIRCRAFT SYSTEMS TECHNICIAN MARLENE DISEASE VISIT ANNUAL PCP TEAM CHRONIC DISEASE VISIT [facility] Start: 12-08-2022 ANNUAL PCP TEAM AIRCRAFT SYSTEMS TECHNICIAN MARLENE DISEASE VISIT ANNUAL PCP TEAM CHRONIC DISEASE VISIT [facility] Start: 12-08-2022 BP CONTROLLED (<130/80) BP CONTROLLE D (<130/80) [facility] Start: 09-06-2022 ANNUAL PCP TEAM AIRCRAFT SYSTEMS TECHNICIAN MARLENE DISEASE VISIT ANNUAL PCP TEAM CHRONIC DISEASE VISIT [facility] Start: 09-02-2022 Hemoglobin A1c/Hemoglobin.total in Blood HBA1C [facility] Start: 08-30-2022 SERUM CREATININE SERUM CREATININE Cl [facility] Start: 08-09-2022 End: 10-09-2022 CBC W Auto Differential panel - Blood CBC + DIFF Lab Routine Type 2 diabetes mellitus with diabetic neuropathy, with long-term current use of insulin (HCC) Expected: 08/09/2022, Expires: 10/09/[address] [facility] Work Phone: Comment on above: Expected: 08/09/2022 , Expires: 10/09/2022 Start: 08-09-2022 End: 10-09-2022 Comprehensive metabolic 2000 panel - Serum or Plasma COMP METABOLIC PANEL Lab Routine Type 2 diabetes mellitus with diabetic neuropathy, with long-term current use of insulin (HCC) Expected: 08/09/2022, Expires: 10/09/[address] [facility] Work Phone: Comment on above: Expected: 08/09/2022 , Expires: 10/09/2022 Start: 08-09-2022 End: 10-09-2022 Hemoglobin A1c in Blood HGB A1C Lab Routine Type 2 diabetes mellitus with diabetic neuropathy, with long-term current use of insulin (HCC) Expected: 08/09/2022, Expires: 10/09/[address] [facility] Work Phone: Comment on above: Expected: 08/09/2022 , Expires: 10/09/2022 Start: 08-06-2022 COVID-19 VACCINE (6 - Pfizer series) COVID-19 VACCINE (6 - Pfizer series) [facility] Start: 07-15-2022 ADVANCE DIRECTIVE DISCUSSION ADVANCE DIRECTIVE DISCUSSION [facility] Start: 07-15-2022 DEPRESSION ASSESSMENT DEPRESSION ASS ESSMENT [facility] Start: 07-11-2022 [facility]: Start: 07-11-2022 Referral to service [facility] Work Phone: Start: 07-10-2022 [facility] Work Phone: Start: 07-10-2022 Following clinical p athway protocol [facility] Work Phone: Start: 07-10-2022 Assessment of risk o f venous thromboembolism [facility] Work Phone: Start: 07-10-2022 Cardiac monitoring [facility] Work Phone: Start: 07-10-2022 Care regimes management [facility] Work Phone: Start: 07-10-2022 Catheterization of vein [facility] Work Phone: Start: 07-10-2022 Continuous pulse oximetry [facility] Work Phone: Start: 07-10-2022 Elevation of head of bed [facility] Work Phone: Start: 07-10-2022 Exercises [facility] Work Phone: Start: 07-10-2022 Fall prevention [facility] Work Phone: Start: 07-10-[address]ed interventions [facility] Work Phone: Start: 07-10-2022 Incentive spirometry [facility] Work Phone: Start: 07-10-2022 Insertion of cathete r into peripheral vein [facility] Work Phone: Start: 07-10-2022 Introduction of urin barrington catheter [facility] Work Phone: Start: 07-10-2022 Measuring intake and output [facility] Work Phone: Start: 07-10-2022 Notification of physician [facility] Work Phone: Start: 07-10-2022 Oxygen therapy [facility] Work Phone: Start: 07-10-2022 Providing care accor ding to standard [facility] Work Phone: Start: 07-10-2022 Provision of activit y privileges [facility] Work Phone: Start: 07-10-2022 Referral to elevators inspector [facility] Work Phone: Start: 07-10-2022 Referral to occupati onal therapist [facility] Work Phone: Start: 07-10-2022 Referral to service [facility] Work Phone: Start: 07-10-2022 Tobacco use cessatio n education [facility] Work Phone: Start: 07-10-2022 [facility] Work Phone: Start: 07-10-2022 Patient referral to dietitian [facility] Work Phone: Start: 07-09-2022 Admission procedure [facility] Work Phone: Start: 03-15-2022 HEMOGLOBIN/HEMATOCRIT HEMOGLOBIN/HEM ATOCRIT [facility] Start: 03-15-2022 Influenza vaccination INFLUENZA (#1) [facility] Start: 03-07-2022 End: 05-07-2022 Comprehensive metabolic 2000 panel - Serum or Plasma [facility] Work Phone: Comment on above: Expected: 03/07/2022 , Expires: 05/07/2022 Start: 03-02-2022 [facility] Work Phone: Start: 02-27-2022 Hemoglobin A1c/Hemoglobin.total in Blood HBA1C [facility] Start: 02-20-2022 Hepatitis C antibody , confirmatory test DILATED RETINAL EXAM [facility] Start: 01-30-2022 End: 04-01-2022 ALBUMIN/CREAT RATIO RND UR ALBUMIN/CREAT RATIO RND UR Lab Routine Type 2 diabetes mellitus with stage 3 chronic kidney disease, with long-term current use of insulin (HCC) Expected: 01/30/2022, Expires: 04/01/[address] [facility] Work Phone: Comment on above: Expected: 01/30/2022 , Expires: 04/01/2022 Start: 01-30-2022 End: 04-01-2022 Hemoglobin A1c in Blood HGB A1C Lab Routine Type 2 diabetes mellitus with stage 3 chronic kidney disease, with long-term current use of insulin (HCC) Expected: 01/30/2022, Expires: 04/01/[address] [facility] Work Phone: Comment on above: Expected: 01/30/2022 , Expires: 04/01/2022 Start: 01-30-2022 End: 04-01-2022 SCHEDULE LAB TESTING SCHEDULE LAB TESTING Lab Routine Expected: 01/30/2022, Expires: 04/01/[address] [facility] Work Phone: Comment on above: Expected: 01/30/2022 , Expires: 04/01/2022 Start: 01-05-2022 End: 03-07-2022 Magnesium [Mass/volume] in Serum or Plasma MAGNESIUM BLD Lab Routine Altered mental status, unspecified altered mental status type Expected: 01/05/2022, Expires: 03/07/[address] [facility] Work Phone: Comment on above: Expected: 01/05/2022 , Expires: 03/07/2022 Start: 01-05-2022 End: 03-07-2022 Methylmalonate [Moles/volume] in Serum or Plasma METHYLMALONIC ACID Lab Routine Altered mental status, unspecified altered mental status type Expected: 01/05/2022, Expires: 03/07/[address] [facility] Work Phone: Comment on above: Expected: 01/05/2022 , Expires: 03/07/2022 Start: 01-01-2022 End: 03-03-2022 25-hydroxyvitamin D3 [Mass/volume] in Serum or Plasma [facility] Work Phone: Comment on above: Expected: 01/01/2022 , Expires: 03/03/2022 Start: 01-01-2022 End: 03-03-2022 Lipid 1996 panel - Serum or Plasma [facility] Work Phone: Comment on above: Expected: 01/01/2022 , Expires: 03/03/2022 Start: 12-30-2021 Blood chemistry [facility] Work Phone: Start: 12-29-2021 Patient discharge [facility] Work Phone: Start: 12-28-2021 Admission procedure [facility] Work Phone: Start: 12-27-2021 End: 12-28-2021 [facility] Work Phone: Start: 12-27-2021 Oxygen therapy [facility] Work Phone: Start: 12-27-2021 Incentive spirometry [facility] Work Phone: Start: 12-27-2021 Admission procedure [facility] Work Phone: Start: 12-27-2021 Assessment of risk o f venous thromboembolism [facility] Work Phone: Start: 12-27-2021 Following clinical p athway protocol [facility] Work Phone: Start: 12-27-2021 Insertion of cathete r into peripheral vein [facility] Work Phone: Start: 12-27-2021 Measuring intake and output [facility] Work Phone: Start: 12-27-2021 Providing care accor ding to standard [facility] Work Phone: Start: 12-27-2021 End: 12-27-2021 Referral to service [facility] Work Phone: Start: 12-06-2021 Bacteria identified in Blood by Culture Blood Culture [facility] Work Phone: Start: 11-23-2021 3 comp foot exam completed DIABETIC FOOT EXAM [facility] Start: 11-16-2021 Hepatitis B screening URINE ALBUMIN:CREATININE RATIO [facility] Start: 11-16-2021 Hepatitis B surface antibody level LDL CHOLESTEROL [facility] Start: 10-28-2021 Adult depression scr eening assessment DEPRESSION SCREENING [facility] Start: 09-15-2021 COVID-19 VACCINE (4 - Booster for Pfizer series) COVID-19 VACCINE (4 - Booster for Pfizer series) [facility] Start: 07-15-2021 ADVANCE DIRECTIVE DISCUSSION ADVANCE DIRECTIVE DISCUSSION [facility] Start: 07-15-2021 DEPRESSION ASSESSMENT DEPRESSION ASS ESSMENT [facility] Start: 03-12-2021 Colonoscopy COLONOSCOPY [facility] Start: 03-12-2021 COLORECTAL CANCER SCREENING COLORECTAL CANCER SCREENING [facility] Start: 12-25-2020 Urine microalbumin profile DTA P,TDAP,TD (3 - Td or Tdap) [facility] Start: 10-12-1992 COLOGUARD (FIT-DNA) COLOGUARD (FIT-D NA) [facility] Start: 10-12-[address] [facility] Start: 10-12-1992 FECAL OCCULT BLOOD FECAL OCCULT BLOO D [facility] Start: 10-12-1992 SIGMOIDOSCOPY SIGMOIDOSCOPY [facility] Start: 10-12-1965 BP CONTROLLED (<130/80) BP CONTROLLE D (<130/80) [facility] Alanine aminotransfe rase [Enzymatic activity/volume] in Serum or Plasma [facility] Aspartate aminotrans ferase [Enzymatic activity/volume] in Serum or Plasma [facility] Bacteria identified in Blood by Culture Blood Culture [facility] Bacteria identified in Urine by Culture Urine Culture [facility] Creatine kinase [Enz ymatic activity/volume] in Serum or Plasma [facility] End: 01-05-2023 EPIL EEG ROUTINE EPIL EEG ROUTINE NEUROLOGY Routine Altered mental status, unspecified altered mental status type 1 Occurrences starting 01/05/2022 until 01/05/[address] [facility] Work Phone: Comment on above: 1 Occurrences starti ng 01/05/2022 until 01/05/2023 Lipid 1996 panel - S chavez or Plasma [facility] Magnesium [Mass/volu me] in Serum or Plasma [facility] Magnesium [Mass/volu me] in Serum or Plasma [facility] Patient Education [facility] Work Phone: Patient referral [facility] Work Phone: PT PLAN OF CARE CERTIFICATION PT PLAN OF CARE CERTIFICATION Procedures Routine Abnormality of gait due to impairment of balance Ordered: 01/12/[address] [facility] Comment on above: Ordered: 01/12/2022 PT PLAN OF CARE CERTIFICATION PT PLAN OF CARE CERTIFICATION Procedures Routine Abnormality of gait due to impairment of balance Ordered: 03/09/[address] [facility] Comment on above: Ordered: 03/09/2022 SURGICAL PATHOLOGY [facility] Work Phone: Comment on above: Release Upon Orderin g for 1 Occurrences starting 10/10/2021, 1 completed [facility] Immunizations Immunization Date Immunization Notes Care Provider [facility] 04-06-2022 COVID-19 booster vaccine, age 12+ yr, bivalent (PFIZER-BIONTECH) Roselia Raglandlogdavid STOGY ROLLER.COMMUNICATIONS ENGINEERING TECHNICIAN Work Phone: [facility] 04-06-2022 Influenza, high dose seasonal Dr. Luis Caldera MD Work Phone: [facility] 04-06-2022 influenza, high dose seasonal, preservative-free Dr. Maggy Roberts Work Phone: [facility] 04-06-2022 influenza, high-dose , quadrivalent vaccine (FLUZONE HIGH DOSE QUADRIVALENT) Roselia Madrigal STOGY ROLLER.COMMUNICATIONS ENGINEERING TECHNICIAN Work Phone: [facility] 03-28-2022 influenza, injectabl e, quadrivalent, preservative free Dr. Maggy Roberts Work Phone: [facility] 03-28-2022 influenza, seasonal, injectable Dr. Maggy Roberts Work Phone: [facility] 06-14-2021 Influenza, high dose seasonal Dr. Luis Caldera MD Work Phone: [facility] 06-14-2021 influenza, high dose seasonal, preservative-free Dr. Maggy Roberts Work Phone: [facility] 06-14-2021 influenza, high-dose , quadrivalent vaccine (FLUZONE HIGH DOSE QUADRIVALENT) Abdulaziz Caldera MD Work Phone: [facility] Work Phone: 05-18-2021 Covid (Pfizer) Dr. Maggy Roberts Work Phone: [facility] 02-24-2021 zoster vaccine recombinant Abdulaziz Caldera MD Work Phone: [facility] 12-13-2020 Covid (Pfizer) Dr. Ramón Caldera Work Phone: [facility] 09-30-2020 COVID-19 vaccine, ag e 12+ yr (PFIZER-BIONTECH - PURPLE TOP) Abdulaziz Caldera MD Work Phone: [facility] 09-09-2020 COVID-19 vaccine, ag e 12+ yr (PFIZER-BIONTECH - PURPLE TOP) Abdulaziz Caldera MD Work Phone: [facility] 04-16-2020 Influenza, high dose seasonal Dr. Luis Caldera MD Work Phone: [facility] 04-16-2020 influenza, high dose seasonal, preservative-free Dr. Maggy Roberts Work Phone: [facility] 04-16-2020 influenza, high-dose , quadrivalent vaccine (FLUZONE HIGH DOSE QUADRIVALENT) Abdulaziz Caldera MD Work Phone: [facility] 03-14-2020 zoster vaccine recombinant Abdulaziz Caldera MD Work Phone: [facility] Work Phone: 04-02-2019 Influenza, high dose seasonal Dr. Luis Caldera MD Work Phone: [facility] 04-02-2019 influenza, high dose seasonal, preservative-free Abdulaziz Caldera MD Work Phone: [facility] Work Phone: 05-08-2018 Influenza virus vaccine [facility] 04-15-2018 Influenza, high dose seasonal Dr. Luis Caldera MD Work Phone: [facility] 04-15-2018 influenza, high dose seasonal, preservative-free Abdulaziz Caldera MD Work Phone: [facility] 06-13-2017 Influenza, high dose seasonal Dr. Luis Caldera MD Work Phone: [facility] 06-13-2017 influenza, high dose seasonal, preservative-free Abdulaziz Caldera MD Work Phone: [facility] 06-20-2016 influenza, high dose seasonal, preservative-free Abdulaziz Caldera MD Work Phone: [facility] 11-24-2015 pneumococcal polysaccharide vaccine, 23 valent Abdulaziz Caldera MD Work Phone: [facility] 05-16-2015 Influenza, high dose seasonal Dr. Luis Caldera MD Work Phone: [facility] 05-16-2015 influenza, high dose seasonal, preservative-free Abdulaziz Caldera MD Work Phone: [facility] 10-27-2014 pneumococcal conjuga te vaccine, 13 valent Abdulaziz Caldera MD Work Phone: [facility] 10-27-2014 zoster vaccine, live Socrates Caldera MD Work Phone: [facility] 04-14-2013 Influenza virus vaccine [facility] 06-11-2011 influenza virus vaccine, unspecified formulation Abdulaziz Caldera MD Work Phone: [facility] 12-25-2010 tetanus toxoid, redu veronika diphtheria toxoid, and acellular pertussis vaccine, adsorbed Abdulaziz Caldera MD Work Phone: [facility] 04-25-2009 pneumococcal polysaccharide vaccine, 23 valent Abdulaziz Caldera MD Work Phone: [facility] 03-21-2000 diphtheria and tetan us toxoids, adsorbed for pediatric use Abdulaziz Caldera MD Work Phone: [facility] Work Phone: 02-11-1961 poliovirus vaccine, inactivated Christopher Bursley MD Work Phone: [facility] Work Phone: 03-25-1959 poliovirus vaccine, inactivated Abdulaziz Caldera MD Work Phone: [facility] Work Phone: 10-16-1956 poliovirus vaccine, inactivated Abdulaziz Caldera MD Work Phone: [facility] Work Phone: 01-12-1956 poliovirus vaccine, inactivated Abdulaziz Caldera MD Work Phone: [facility] Work Phone: 12-03-1955 poliovirus vaccine, inactivated Abdulaziz Caldera MD Work Phone: [facility] Work Phone: Payers Date Payer Category Payer Self-pay [id number] 2021 Medicare [id number] 2021 Unknown [id number] 2012 Unknown HOSPITAL/MEDICAL GENERIC MEDICAL GENERIC [id number] 2012-Present [phone] [address] [place] [address] Indemnity [id number] 2012 Unknown HOSPITAL/MEDICAL GENERIC MEDICAL GENERIC [id number] 2012-Present [phone] [address] [place] [address] Indemnity [id number] 2012 Medicare MEDICARE MEDICAR E A AND B [id number] 2012-Present [phone] [place] [address] Medicare [id number] 2012 Medicare MEDICARE MEDICAR E A AND B [id number] 2012-Present [phone] [address] [address] [place] [address] Medicare [id number] 1945 Unknown [id number] [id number]7 Unknown [id number] 2.16.840.1.328919.3.579.2.462 Unknown [id number] 2.16.840.1.030591.3.579.2.462 Unknown [id number] 2.16.840.1.827583.3.579.2.462 Unknown [id number] 2.16.840.1.974585.3.579.2.462 Unknown [id number] 2.16.840.1.055624.3.579.2.462 Unknown [id number] 2.16.840.1.984980.3.579.2.462 Unknown [id number] 2.16.840.1.280137.3.579.2.462 Unknown [id number] 2.16.840.1.995662.3.579.2.462 Unknown [id number] 2.16.840.1.391643.3.579.2.462 Unknown [id number] 2.16.840.1.756161.3.579.2.462 Unknown [id number] 2.16.840.1.734079.3.579.2.462 Unknown [id number] 2.16.840.1.331437.3.579.2.462 Unknown [id number] 2.16.840.1.663155.3.579.2.462 Unknown [id number] 2.16.840.1.939850.3.579.2.462 Unknown [id number] 2.16840.1.005680.3.579.2.462 Unknown [id number] 2.16840.1.004293.3.579.2.462 Unknown [id number] 2.16840.1.281527.3.579.2.462 Unknown [id number] 2.16840.1.110892.3.579.2.462 Unknown [id number] 2.16840.1.709481.3.579.2.462 Unknown [id number] 2.840.1.098017.3.579.2.462 Unknown [id number] 2.840.1.597615.3.579.2.462 Unknown [id number] 2.840.1.138225.3.579.2.462 Unknown [id number] 2.840.1.970175.3.579.2.462 Unknown [id number] 2.840.1.485168.3.579.2.462 Unknown [id number] 2.840.1.727471.3.579.2.462 Unknown [id number] 2.840.1.447925.3.579.2.462 Unknown [id number] 2.840.1.365945.3.579.2.462 Unknown [id number] 2.840.1.048008.3.579.2.462 Unknown [id number] 2.840.1.926439.3.579.2.462 Social History Date Type Detail Facility Start: 11-23-2020 End: 10-07-2023 Tobacco smoking status IDIS Never smoked tobacco [facility] Start: 09-06-2021 End: 12-03-2022 Alcohol intake Current non-drinker of alcohol (finding) [facility] Start: 1945 Sex Assigned At Not on file [facility] Start: 08-07-2021 End: 04-17-2022 Exposure to SARS-CoV-2 (event) Not sure [facility] Start: 12-06-2021 End: 05-30-2023 Tobacco smoking status NHIS Unknown if ever smoked [facility] Start: 01-10-2019 Spouse/ Signif icant Other [facility] Start: 1945 Sex Assigned At Male [facility] Work Phone: Tobacco smoking status No Smokin g Status Entered [facility] Start: 01-02-2022 End: 01-12-2022 Exposure to SARS-CoV-2 (event) Unable to assess [facility] Work Phone: Start: 11-23-2020 End: 04-06-2022 Tobacco use and exposure Smokeless tobacco non-user [facility] Work Phone: Start: 09-16-2013 Rare [facility] Start: 09-16-2013 None [facility] Start: 09-16-2013 Non-smoker [facility] Start: 11-19-2022 End: 12-03-2022 History of Social function [facility] Work Phone: Start: 11-19-2022 End: 12-03-2022 Tobacco use panel [facility] Work Phone: Adult Depression Screening Assessment 2 [facility] Work Phone: Start: 10-15-2024 End: 10-22-2024 Sex Male (finding) [facility] Medical Equipment Procedure Code Equipment Code [...] ABS FDA Start: 03-28-2018 FDA Start: 03-28-2018 ([id number]) ()[id number] FDA Start: 02-04-2023 ([id number]) ()[id number] FDA Start: 02-04-2023 ([id number]) ()[id number] FDA Start: 02-04-2023 FDA Start: 03-28-2018 [...] Assessment Result Facility 02-13-2023 Functional status Bedrest [facility] Work Phone: 02-05-2023 Functional status Chair [facility] Work Phone: 02-04-2023 Functional status Bedrest [facility] Work Phone: 01-26-2023 Functional status Chair mode [facility] Work Phone: 01-26-2023 Functional status With Assist of 2;Bedres t [facility] Work Phone: 01-25-2023 Functional status None [facility] Work Phone: 01-08-2023 Functional status Chair [facility] Work Phone: 07-11-2022 Functional status Ambulates [facility] Work Phone: 12-29-2021 Functional status Chair [facility] Work Phone: Mental Status Date Assessment Result Facility 06-03-2023 Cognitive function Voice/Name [facility] Work Phone: 02-13-2023 Cognitive function Voice/Name [facility] Work Phone: 02-11-2023 Cognitive function Awake;Drowsy [facility] Work Phone: 02-10-2023 Cognitive function Awake;Appropr iate;Follows Commands;Drowsy [facility] Work Phone: 02-05-2023 Cognitive function Voice/Name [facility] Work Phone: 02-04-2023 Cognitive function Appropriate;[facility] Work Phone: 01-26-2023 Cognitive function Voice/Name [facility] Work Phone: 01-21-2023 Cognitive function Level Of Cons ciousness Drowsy;Lethargic [facility] Work Phone: 01-08-2023 Cognitive function Voice/Name [facility] Work Phone: 01-04-2023 Cognitive function Voice/Name [facility] Work Phone: 07-11-2022 Cognitive function Voice/Name [facility] Work Phone: 07-10-2022 Cognitive function Appropriate;[facility] Work Phone: 03-02-2022 Cognitive function Voice/Name [facility] Work Phone: 12-29-2021 Cognitive function Voice/Name [facility] Work Phone: 12-06-2021 Cognitive function Level Of Cons ciousness Awake;Alert;Appropriate [facility] Work Phone: Clinical Notes 10-25-2014 to 10-12-2024 Note Date & Type Note Facility 10-12-2024 Evaluation note Diagnosis Onset Date Resolution Presence of cardiac pacemaker acute October 12, 2024 1:09pm Atrial fibrillation chronic October 12, 2024 1:09pm Diabetes chronic October 12 1:09pm HLD (hyperlipidemia) chronic [place] 2024 1:09pm HTN (hypertension) chronic October 12, 2024 1:09pm Sick sinus syndrome chronic October 12, 2024 1:09pm [facility] Work Phone: 1(555) 847-285811-20-2023 Procedure [facility] 02-13-2023 Consult note Author Haile Bautista [facility] February 13, 2023 2:50pm Note Date/Time February 13, 2023 2:5 0pm [facility] Medical Records Department [address] [place] [address] Counseling Note - Pharmacy 02/13/23 1449 MR#: [id number] Acct: [id number] Name: RICHARD ROY Rep #:[id number] : 1945 77 From: Haile Bautista PCP: Dr. Luis Caldera MD Status :ADM IN Y [facility] [place] [facility] Reconciliation Pharmacy Service has performed discharge [...] Signature (if applicable): Date CC: ~ Signed [facility] Work Phone: 1(669) 701-389008-02-2023 Discharge summary Author Gabriel Giraldo [facility] February 13, 2023 2:24pm Note Date/Time February 13, 2023 2:1 5pm [facility] Medical Records Department [address] [place] [address] Transfer to [facility] MR#: [id number] Acct: [id number] Name: RICHARD ROY Rep #:[id number] : 1945 77 From: Gabriel Giraldo DO PCP: Dr. Luis Caldera MD Status :ADM IN Certification of patient admission REQUIRED AT TIME OF ADMISSION. I CERTIFY THAT POST-HOSPITAL ECF SERVICES ARE REQUIRED TO BE GIVEN ON AN IN-PATIENT BASIS BECAUSE OF THE ABOVE NAMED PATIENT'S NEED FOR RESIDENTIAL CARE ON A CONTINUING BASIS FOR THE [...] mg PO QHS Patient Comments: PRN PER RESIDENTIAL MAR. acetaminophen 325 mg Tablet 650 mg PO TID Patient Comments: PRN PER RESIDENTIAL MAR cephalexin 500 mg capsule 500 mg [...] 8 units; 301-350 12 units; 351-1000 call sennosides-docusate sodium [Stool Softener-Stimulant Laxat] 8.6-50 mg [...] in before D/C Order can be placed): Longterm Facility 02/13/23 1424 <Electronically signed by Gabriel Giraldo DO> Cosigner Signature (if applicable): CC: Dr. Luis Caldera MD; Dr. Smith Leija MD ~ [facility] Work Phone: 1(106) 858-833908-01-2023 Progress note Author Gabriel Giraldo [facility] February 12, 2023 4:48pm Note Date/Time February 12, 2023 4:4 8pm [facility] Medical Records Department [address] [place] [address] Progress Note - Hospitalist 02/12/23 1639 MR#: [id number] Acct: [id number] Name: RICHARD ROY Rep #:[id number] : 1945 77 From: Gabriel Giraldo DO PCP: Dr. Luis Caldera MD Status :ADM IN Location: [place] [address] Reason for Visit Reason for Visit: Diagnoses [...] 76.5 H, Lymph % (Auto) 8.1 L, Delta % (Auto) 12.5 H, Eos % (Auto) [...] 35 minutes Charges/Coding Visit Charges Inpatient E&M: 28302 Subs Hosp L2 02/12/23 1648 <Electronically signed by Gabriel Giraldo DO> Cosigner Signature (if applicable): CC: ~ Signed [facility] Work Phone: 1(718) 803-156708-01-2023 Consult note Author Smith Leija [facility] February 12, 2023 2:16pm Note Date/Time February 12, 2023 2:1 6pm [facility] Medical Records Department [address] [place] [id number] Consultation - Infectious Dx 02/12/23 1412 MR#: [id number] Acct: [id number] Name: RICHARD ROY Rep #:[id number] : 1945 77 From: Smith huang MD PCP: Dr. Luis Caldera MD Status :ADM IN [facility] Assessment & Plan Assessment/Plan (1) Bacteremia: PLAN: [...] keflex in ED 02/10, sent back to [facility]. Had low grade fever, returned here with (+) ucx and (+)bcx with GNR. Admitted on ceftriaxone, feeling ok today. No complaints, deniesfever, chest pain, abd pain, dysuria, n/v/d. Full ROS performed and neg except as noted above. [facility] Medical History AAA (abdominal aortic aneurysm) [...] Hx of abdominal surgery Social History housing: long-term current occupational status: retired Smoking Status: Never [...] 76.5 H, Lymph % (Auto) 8.1 L, Delta % (Auto) 12.5 H, Eos % (Auto) 0.8, Baso % (Auto) 0.1, Absolute Neuts(auto) 5.7, Absolute Lymphs (auto) 0.61 L, Nucleated RBC % 0, PT 19.3 H, INR 1.6 Rhythm Strip Rhythm Strip: paced Rate: 95 Ectopy: None 02/12/23 1416 <Electronically signed by Smith Leija MD> Cosigner Signature (if applicable): CC: Dr. Luis Caldera MD; Dr. Smith Leija MD~ Signed [facility] Work Phone: 1(319) 624-462808-01-2023 Discharge summary Author Dandy Sauer [facility] February 12, 2023 2:03am Note Date/Time February 11, 2023 5:05 pm [facility] Medical Records Department [address] [place] [address] Emergency Department Summary 02/11/23 MR#: [id number] Acct: [id number] Name: RICHARD ROY Rep #:[id number] : 1945 77 From: Dandy Sauer MD PCP: Dr. Luis Caldera MD Status :ADM IN Location: [place] [address] HPI History of Present Illness Chief Complaint: [...] mostly the lethargy is the issue acutely. [facility] Medical History (Updated 02/11/23 @ 19:31 [...] Hx of abdominal surgery Social History housing: long-term current occupational status: retired Smoking Status: Never [...] 96 96 Oxygen Delivery Method Room Air 07/31/23 17:00 Temperature Temperature Source Pulse Rate 77 [...] infection), Bacteremia Disposition Disposition: Acute Care Hospital [facility] Discharge Date/Time: 02/11/23 19:06 What to do if you have Problems For any increased pain, shortness of breath, bleeding, nausea or vomiting, chestpain, or any unexpected problems, contact your Primary Care Provider. Call [facility] ([phone]) or report to the closest Emergency Room. Call 911 if necessary. 02/12/23 0203 <Electronically signed by Dandy Sauer MD> Cosigner Signature (if applicable): CC: Dr. Luis Caldera MD ~ Signed [facility] Work Phone: 1(619) 919-756007-31-2023 History and physical note Author Jesus Burnham [facility] February 11, 2023 7:38pm Note Date/Time February 11, 2023 7:39 pm [facility] Medical Records Department [address] [place] [address] History & Physical Exam 02/11/231928 MR#: [id number] Acct: [id number] Name: RICHARD ROY Rep #:[id number] : 1945 77 From: Jesus Burnham MD PCP: Dr. Luis Caldera MD Status :ADM IN Location: [facility] WM150-1 HPI - General General Date of Admission: [...] tract infection and sent back to the long-term facility, however, today the patient has become more obtunded and sleeping excessively. Lactic acid elevation is noted and patient is on pacemaker. He denies any chest pain, shortness of breath and/or fevers orchills however is not a great historian at present time. Patient's is present at bedside and apparently the son is the DURABLE POWER OF SALES DEVELOPMENT COORDINATOR for healthcare and has orders signed for DNR CCA with no intubation. He will be admitted to the general medical floor placed on Rocephin, consult for infectiousdisease due to new implanted pacemaker. [facility] Medical History Amputation of right great [...] Hx of abdominal surgery Social History housing: long-term current occupational status: retired Smoking Status: Never [...] on Coumadin Charges/Coding Visit Charges Inpatient E&M: 83784 Init Hosp L2 02/11/231937 <Electronically signed by Jesus Burnham MD> Cosigner Signature (if applicable): CC: Dr. Luis Caldera MD; Dr. Jesus Burnham MD~ Signed [facility] Work Phone: 1(263) 838-766507-17-2023 Miscellaneous Notes* Telephone Encounter - Tania Heller LPN - 01/28/2023 2:22 PM EDT Miya with [facility] calls to report pt was admitted to their facility over the weekend. Miya is requesting immunization record be faxed to: [phone]. Immunization record faxed as requested. Tania Heller LPN [facility] Discharge summary Author Ryan Tinoco [facility] January 26, 2023 12:56pm Note Date/Time January 26, 2023 12:4 6pm [facility] Medical Records Department [address] [place] [address] Discharge Summary 01/26/23 1157 MR#: [id number] Acct: [id number] Name: RICHARD ROY Rep #:[id number] : 1945 77 From: Ryan Delgado PCP: Dr. Luis Caldera MD Status :ADM IN Location: [place] [address] 1 Providers Date of Admission: 01/21/23 Date of Discharge: 01/26/23 Primary Care Physician: Dr. Luis Caldera MD Consultations 01/21/23 11:52 Consult: Gastroenterology Routine Consulting Provider: Goyo Gastroentermitzi Reason for Consult: Upper GI BLeed EMERGENT Consult: No MD Notified: Yes Date Notified: 01/21/23 Time Notified: 10:00 Method of Notification: ED Physician Initiated 01/22/23 08:16 Consult: Cardiology Routine Consulting Provider: Lizzeth Riggs Reason for Consult: Mobitz type 2 AV Block EMERGENT Consult: No MD Notified: Yes Date Notified: 01/22/23 Time Notified: [...] is a 77-year-old gentleman being admitted from [facility] for multiple episodes of syncope and upper [...] the . His medical care is under [facility]. 01/22: Hemoglobin dropped to 8.9. [...] there was 2 dropped heartbeat in EKG. technical support agent shows heart rate slowed down to 48 to 60/min. EKG in the morning about 6 AM today shows sinus rhythm with second- degree Mobitz type II block, RBBB, LAFB bifascicular block. Patient has history of bifascicular block. I talked to the patient's and informed her about the update. Patient has history of ascending aortic aneurysmand had that repaired along with aortic valve in [facility]. His elevators inspector is Dr. Huston in [facility]. I think this is most probably due to start of the octreotide drip as patient was in sinus normal rhythm at time ofadmission. Octreotide discontinued. Supervisor Drying And Softening consulted. 2D echo ordered. 01/23: Echo states EF 55 to 60%, normal LV systolic function. Trivial MR. Mild diffuse aortic valve calcification. Normal left atrium. Plan: Supervisor Drying And Softening will talk to Dr. Chandra regarding assessment for pacemaker 01/24: Patient has hypernatremia and hyperchloremia. IV fluid D5W started. Patient is still has AV block, P waves but rhythm is irregular. Twelve-lead EKGordered. Discussed with the elevators inspector. Dr. Ling will talk to Dr. Chandra. 01/25: For now plan is to monitor. No plan for pacemaker as per the elevators inspector. technical support agent shows irregular heartbeat , Mobitz type II. [...] or advanced directive. His is power of site reliability engineer for health. After discussion of benefits/risks procedures [...] Heart rate in 50s.. Discussed with the elevators inspector. No chest pain or tightness. Physical exam [...] 78.4 H, Lymph % (Auto) 8.1 L, Delta % (Auto) 9.6, Eos % (Auto) 1.6, [...] Qty: 0 0RF Patient Comments: PRN PER RESIDENTIAL MAR melatonin 3 mg Tablet 3 mg PO QHS PRN PRN (Reason: Insomnia) Qty: 1 0RF Patient Comments: PRN PER RESIDENTIAL MAR. duloxetine [Cymbalta] 60 mg capsule,delayed release(DR/EC) [...] in before D/C Order can be placed): Longterm Facility Charges/Coding Visit Charges Inpatient E&M: 42746 Disch Hosp >30min 01/26/23 1256 <Electronically signed by Ryan Tinoco MD> Cosigner Signature (if applicable): CC: Dr. Luis Caldera MD; Dr. Ryan Tinoco MD~ Signed [facility] Work Phone: 1(341) 624-284307-15-2023 Discharge summary Author Ryan Tinoco [facility] January 26, 2023 11:57am Note Date/Time January 26, 2023 7:59 am [facility] Medical Records Department [address] [place] [address] Transfer to [facility] MR#: [id number] Acct: [id number] Name: RICHARD ROY Rep #:[id number] : 1945 77 From: Ryan Delgado PCP: Dr. Luis Caldera MD Status :ADM IN Certification of patient admission REQUIRED AT TIME OF ADMISSION. I CERTIFY THAT POST-HOSPITAL F SERVICES ARE REQUIRED TO BE GIVEN ON AN IN-PATIENT BASIS BECAUSE OF THE ABOVE NAMED PATIENT'S NEED FOR RESIDENTIAL CARE ON A CONTINUING BASIS FOR THE CONDITION(S) FOR WHICH HE/SHE WAS RECEIVING IN-PATIENT HOSPITAL SERVICES PRIOR TO HIS/HER TRANSFER TO THE [facility]. 01/26/23 1157<Electronically signed by Ryan Tinoco MD> [...] is a 77-year-old gentleman being admitted from [facility] for multiple episodes of syncope and upper [...] the . His medical care is under [facility]. 01/22: Hemoglobin dropped to 8.9. [...] there was 2 dropped heartbeat in EKG. technical support agent shows heart rate slowed down to 48 to 60/min. EKG in the morning about 6 AM today shows sinus rhythm with second- degree Mobitz type II block, RBBB, LAFB bifascicular block. Patient has history of bifascicular block. I talked to the patient's and informed her about the update. Patient has history of ascending aortic aneurysmand had that repaired along with aortic valve in [facility]. His elevators inspector is Dr. Huston in [facility]. I think this is most probably due to start of the octreotide drip as patient was in sinus normal rhythm at time ofadmission. Octreotide discontinued. Supervisor Drying And Softening consulted. 2D echo ordered. 01/23: Echo states EF 55 to 60%, normal LV systolic function. Trivial MR. Mild diffuse aortic valve calcification. Normal left atrium. Plan: Supervisor Drying And Softening will talk to Dr. Chandra regarding assessment for pacemaker 01/24: Patient has hypernatremia and hyperchloremia. IV fluid D5W started. Patient is still has AV block, P waves but rhythm is irregular. Twelve-lead EKGordered. Discussed with the elevators inspector. Dr. Ling will talk to Dr. Chandra. 01/25: For now plan is to monitor. No plan for pacemaker as per the elevators inspector. technical support agent shows irregular heartbeat , Mobitz type II. [...] or advanced directive. His is power of site reliability engineer for health. After discussion of benefits/risks procedures [...] Qty: 0 0RF Patient Comments: PRN PER RESIDENTIAL MAR melatonin 3 mg Tablet 3 mg PO QHS PRN PRN (Reason: Insomnia) Qty: 1 0RF Patient Comments: PRN PER RESIDENTIAL MAR. donepezil 10 mg tablet 10 mg PO QHS duloxetine [Cymbalta] 60 mg capsule,delayed release(DR/EC) 60 mg PO DAILY cholecalciferol (vitamin D3) 1,250 mcg (50,000 unit) tablet 1,250 mcg PO MO insulin lispro [Humalog KwikPen Insulin] 100 unit/mL insulin pen See Protocol subcut [facility] Protocol: 6. Sliding Scale Insulin Custom Condition: [...] in before D/C Order can be placed): Longterm Facility (6) Anemia Qualifiers: Anemia type: iron deficiency Iron deficiency anemia type: other iron deficiency Qualified Code(s): D50.8 - Other iron deficiency anemias 01/26/23 7360 <Electronically signed by Ryan Tinoco MD> Cosigner Signature (if applicable): CC: Dr. Luis Caldera MD; Dr. Lizzeth Riggs MD ~ [facility] Work Phone: 1(671) 450-258507-14-2023 Progress note Author Lizzeth Riggs [facility] January 25, 2023 4:08pm Note Date/Time January 25, 2023 1:09 pm [facility] Medical Records Department [address] [place] [address] Progress Note - Cardiology 01/25/23 1308 MR#: [id number] Acct: [id number] Name: RICHARD ROY Rep #:[id number] : 1945 77 From: Rebecca LOZA PA PCP: Dr. Luis Caldera MD Status :ADM IN Location: [place] [address] Documented by User: DENIA Wilkinson 01/25/23 14:14 [...] / -1260.25 1130.42 / 1030.42 14. / 14. Lab / Micro Data 01/25/23 05:31 01/25/23 05:31 Labs: Laboratory Results - last 24 hr 01/22/23 11:32: Total Protein (PEP) 4.4 L, Globulin 1.9 L, Aldolase 1.5 L, IgG Total 417 L, IgG1 237 L, IgG2 115 L, IgG3 20, IgG4 8, IgA 194, IgM 15, IgE 399, Immunofixation Screen Comment, Albumin (DAVID) 2.5 L, Albumin/Globulin (DAVID) 1.4, Nuauz-2-Swsfdwpyr DAVID 0.2, Gvhvr-8-Hubhcjtzo DAVID 0.6, Beta-Globulins (DAVID) 0.7, Gamma Globulins [...] 83.4 H, Lymph % (Auto) 5.9 L, Delta % (Auto) 7.8, Eos % (Auto) 1.0, [...] 83.4 H, Lymph % (Auto) 5.9 L, Delta % (Auto) 7.8, Eos % (Auto) 1.0, [...] stable hemodynamically. Charges/Coding Visit Charges Inpatient E&M: 48861 Subs Hosp L2 Documented by User: Dr. [...] notes and documentation Patient to follow-up as elevators inspector Dr. Chandra with the results of the event monitor. To evaluate for permanent pacemaker implant. 01/25/23 1414 <Electronically signed by Rebecca LOZA> Cosigner Signature (if applicable): 01/25/23 1608 <Electronically signed by Lizzeth Riggs MD> CC: ~ Signed [facility] Work Phone: 1(591) 228-614607-14-2023 Progress note Author Ryan Tinoco [facility] January 25, 2023 2:08pm Note Date/Time January 25, 2023 9:30 am [facility] Medical Records Department [address] [place] [address] Progress Note - Hospitalist 01/25/23 0928 MR#: [id number] Acct: [id number] Name: RICHARD ROY Rep #:[id number] : 1945 77 From: Ryan Delgado PCP: Dr. Luis aCldera MD Status :ADM IN Location: [place] [address] Reason for Visit Reason for Visit: Diagnoses [...] 83.4 H, Lymph % (Auto) 5.9 L, Delta % (Auto) 7.8, Eos % (Auto) 1.0, [...] Heart rate in 50s.. Discussed with the elevators inspector. No chest pain or tightness. Physical exam [...] is a 77-year-old gentleman being admitted from [facility] for multiple episodes of syncope and upper [...] the . His medical care is under [facility]. 01/22: Hemoglobin dropped to 8.9. [...] Albumin (DAVID) 2.5 L, Albumin/Globulin (DAVID) 1.4, Blgsk-5-Urnrncukq DAVID 0.2, Mmevj-8-Ssvsbmuok DAVID 0.6, Beta-Globulins (DAVID) 0.7, Gamma Globulins [...] 83.4 H, Lymph % (Auto) 5.9 L, Delta % (Auto) 7.8, Eos % (Auto) 1.0, [...] there was 2 dropped heartbeat in EKG. technical support agent shows heart rate slowed down to 48 to 60/min. EKG in the morning about 6 AM today shows sinus rhythm with second- degree Mobitz type II block, RBBB, LAFB bifascicular block. Patient has history of bifascicular block. I talked to the patient's and informed her about the update. Patient has history of ascending aortic aneurysmand had that repaired along with aortic valve in [facility]. His elevators inspector is Dr. Huston in [facility]. I think this is most probably due to start of the octreotide drip as patient was in sinus normal rhythm at time ofadmission. Octreotide discontinued. Supervisor Drying And Softening consulted. 2D echo ordered. 01/23: Echo states EF 55 to 60%, normal LV systolic function. Trivial MR. Mild diffuse aortic valve calcification. Normal left atrium. Plan: Supervisor Drying And Softening will talk to Dr. Chandra regarding assessment for pacemaker 01/24: Patient has hypernatremia and hyperchloremia. IV fluid D5W started. Patient is still has AV block, P waves but rhythm is irregular. Twelve-lead EKGordered. Discussed with the elevators inspector. Dr. Ling will talk to Dr. Chandra. 01/25: For now plan is to monitor. No plan for pacemaker as per the elevators inspector. technical support agent shows irregular heartbeat , Mobitz type II. [...] or advanced directive. His is power of site reliability engineer for health. After discussion of benefits/risks procedures [...] systolic function Charges/Coding Visit Charges Inpatient E&M: 75176 Subs Hosp L2 01/25/23 1408 <Electronically signed by Ryan Tinoco MD> Cosigner Signature (if applicable): CC: ~ Signed [facility] Work Phone: 1(801) 109-255507-13-2023 Progress note Author [facility] January 24, 2023 8:23pm Note Date/Time January 24, 2023 8:23 pm [facility] Medical Records Department [address] [place] [address] Progress Note - Hospitalist 01/24/232021 MR#: [id number] Acct: [id number] Name: RICHARD ROY Rep #:[id number] : 1945 77 From: Karen Aly MD PCP: Dr. Luis Caldera MD Status :ADM IN Location: [place] [address] Hospitalist Note Recurrent type II AV block which from notes has been intermittent. He is asymptomatic. Cardiology following and made aware also by RN that it is recurrent. 01/24/232022 <Electronically signed by Karen Aly MD> Cosigner Signature (if applicable): CC: ~ Signed [facility] Work Phone: 1([phone]) 406-853107-13-2023 Progress note Author Liu Hackett [facility] January 24, 2023 5:07pm Note Date/Time January 24, 2023 5:07 pm [facility] Medical Records Department [address] [place] [address] Progress Note - GI 01/24/23 1703 MR#: [id number] Acct: [id number] Name: RICHARD ROY Rep #:[id number] : 1945 77 From: Liu Hackett DO PCP: Dr. Luis Caldera MD Status :ADM IN Location: [place] [id number]- [id number] Subjective Subjective Patient laying in bed with [...] 82.8 H, Lymph % (Auto) 5.3 L, Delta % (Auto) 8.9, Eos % (Auto) 1.3, [...] ensure healing. Charges/Coding Visit Charges Inpatient E&M: 79027 Subs Hosp L3 01/24/237 <Electronically signed by Liu Hackett DO> Cosigner Signature (if applicable): CC: ~ Signed [facility] Work Phone: 1(327) 201-630607-13-2023 Progress note [facility] January 24, 2023 4:25pm Note Date/Time January 24, 2023 1:41 pm [facility] Medical Records Department [address] [place] [address] Progress Note - Cardiology 01/24/23 1338 MR#: [id number] Acct: [id number] Name: RICHARD ROY Rep #:[id number] : 1945 77 From: Rebecca LOZA PCP: Dr. Luis Caldera MD Status :ADM IN Location: [place] [id number]- [id number] Documented by User: DENIA Wilkinson 01/24/23 [...] 82.8 H, Lymph % (Auto) 5.3 L, Delta % (Auto) 8.9, Eos % (Auto) 1.3, [...] 82.8 H, Lymph % (Auto) 5.3 L, Delta % (Auto) 8.9, Eos % (Auto) 1.3, [...] by GI. Charges/Coding Visit Charges Inpatient E&M: 53470 Subs Hosp L2 Documented by User: Dr. [...] by Lizzeth Riggs MD> CC: ~ Signed [facility] Work Phone: 1(780) 339-141207-13-2023 Miscellaneous Notes* Telephone Encounter - Tamika Grijalva [...] Patient's calling to say [facility] his hospitalization @ [facility] for confusion on 01/04. He was sent by squad to [facility] from [facility] on 01/21 due to episode of [...] post hospital stay but it won't be [place]. Vannessa Jorge, RN [facility] Progress note Author Ryan Tinoco [facility] January 24, 2023 1:11pm Note Date/Time January 24, 2023 8:05 am [facility] Medical Records Department [address] [place] [address] Progress Note - Hospitalist 01/24/23 0758 MR#: [id number] Acct: [id number] Name: RICHARD ROY Rep #:[id number] : [...] Antibody < 0.2, Sm (Martinez) Antibody <0.2, INTRANET SPECIALIST Antibody <0.2, Scl-70 Scleroderma Ab <0.2, Double [...] 82.8 H, Lymph % (Auto) 5.3 L, Delta % (Auto) 8.9, Eos % (Auto) 1.3, [...] waves. Twelve-lead EKG ordered.. Discussed with the elevators inspector. No chest pain or tightness. General: Awake [...] is a 77-year-old gentleman being admitted from [facility] for multiple episodes of syncope and upper [...] the . His medical care is under [facility]. 01/22: Hemoglobin dropped to 8.9. [...] there was 2 dropped heartbeat in EKG. technical support agent shows heart rate slowed down to 48 to 60/min. EKG in the morning about 6 AM today shows sinus rhythm with second- degree Mobitz type II block, RBBB, LAFB bifascicular block. Patient has history of bifascicular block. I talked to the patient's and informed her about the update. Patient has history of ascending aortic aneurysmand had that repaired along with aortic valve in [facility]. His elevators inspector is Dr. Huston in [facility]. I think this is most probably due to start of the octreotide drip as patient was in sinus normal rhythm at time ofadmission. Octreotide discontinued. Supervisor Drying And Softening consulted. 2D echo ordered. 01/23: Echo states EF 55 to 60%, normal LV systolic function. Trivial MR. Mild diffuse aortic valve calcification. Normal left atrium. Plan: Supervisor Drying And Softening will talk to Dr. Chandra regarding assessment for pacemaker 01/24: Patient has hypernatremia and hyperchloremia. IV fluid D5W started. Patient is still has AV block, P waves but rhythm is irregular. Twelve-lead EKGordered. Discussed with the elevators inspector. Dr. Ling will talk to Dr. Chandra. [...] or advanced directive. His is power of site reliability engineer for health. After discussion of benefits/risks procedures [...] systolic function Charges/Coding Visit Charges Inpatient E&M: 31782 Subs Hosp L3 01/24/23 1311 <Electronically signed by Ryan Tinoco MD> Cosigner Signature (if applicable): CC: ~ Signed [facility] Work Phone: 1(881) 256-845307-12-2023 Progress note Author Lizzeth Riggs [facility] January 23, 2023 2:45pm Note Date/Time January 23, 2023 10:0 0am [facility] Medical Records Department [address] [place] [address] Progress Note - Cardiology 01/23/23 0946 MR#: [id number] Acct: [id number] Name: RICHARD ROY Rep #:[id number] : 1945 77 From: Rebecca LOZA PA [...] 85.3 H, Lymph % (Auto) 4.8 L, Delta % (Auto) 7.1, Eos % (Auto) 0.7, [...] 85.3 H, Lymph % (Auto) 4.8 L, Delta % (Auto) 7.1, Eos % (Auto) 0.7, [...] appears stable. Charges/Coding Visit Charges Inpatient E&M: 08293 Subs Hosp L2 01/23/23 1000 <Electronically signed by Rebecca LOZA> Cosigner Signature (if applicable): 01/23/23 1445 <Electronically signed by Lizzeth Riggs MD> CC: ~ Signed [facility] Work Phone: 1([phone]) 822-846607-12-2023 Procedure [facility] 01-23-2023 Procedure [facility]07-12-2023 Progress note Author Ryan Tinoco [facility] January 23, 2023 9:01am Note Date/Time January 23, 2023 9:01 am [facility] Medical Records Department [address] [place] [address] Progress Note - Hospitalist 01/23/23 0852 MR#: [id number] Acct: [id number] Name: RICHARD ROY Rep #:[id number] : [...] 85.3 H, Lymph % (Auto) 4.8 L, Delta % (Auto) 7.1, Eos % (Auto) 0.7, [...] every third beat dropped. Discussed with the elevators inspector. No chest pain or tightness. General: Oriented [...] is a 77-year-old gentleman being admitted from [facility] for multiple episodes of syncope and upper [...] the . His medical care is under [facility]. 01/22: Hemoglobin dropped to 8.9. [...] there was 2 dropped heartbeat in EKG. technical support agent shows heart rate slowed down to 48 to 60/min. EKG in the morning about 6 AM today shows sinus rhythm with second- degree Mobitz type II block, RBBB, LAFB bifascicular block. Patient has history of bifascicular block. I talked to the patient's and informed her about the update. Patient has history of ascending aortic aneurysmand had that repaired along with aortic valve in [facility]. His elevators inspector is Dr. Huston in [facility]. I think this is most probably due to start of the octreotide drip as patient was in sinus normal rhythm at time ofadmission. Octreotide discontinued. Supervisor Drying And Softening consulted. 2D echo ordered. 01/23: Echo states EF 55 to 60%, normal LV systolic function. Trivial MR. Mild diffuse aortic valve calcification. Normal left atrium. Plan: Supervisor Drying And Softening will talk to Dr. Chandra regarding assessment [...] or advanced directive. His is power of site reliability engineer for health. After discussion of benefits/risks procedures [...] organ systems), coordination with cardiology and GI image consultant, review of labs and imaging is 50 minutes. Visit Charges Inpatient E&M: 92947 Subs Hosp L3 01/23/23 09 <Electronically signed by Ryan Tinoco MD> Cosigner Signature (if applicable): CC: ~ Signed [facility] Work Phone: 1([phone]) 766-421307-11-2023 Consult note Author Rebecca Leon [facility] January 22, 2023 4:28pm Note Date/Time January 22, 2023 4:07 pm [facility] Medical Records Department [address] [place] [address] Consultation - Cardiology 01/22/23 1605 MR#: [id number] Acct: [id number] Name: RICHARD ROY Rep #:[id number] : [...] hospital stay he [facility]. He presented back to the emergency room yesterday for syncope. The nurses at [facility] had noted that he was unresponsive at [...] last received his metoprolol while in the long-term on 01/20/2023. I did speak with , [...] were adjusted at his last hospital stay. [facility] Medical History (Updated 01/22/23 @ 16:25 by Rebecca LZOA, PA) Amputation of right great toe Aortic [...] Last Taken 01/20/23] warfarin 5 mg tablet (Leandrotoven) 7.5 mg PO SUTUWETHFRSA anticoagulant 05/22/18 [History [...] Hx of abdominal surgery Social History housing: long-term current occupational status: retired Smoking Status: Never [...] Charges/Coding Visit Charges Office Visits / Consults: 49771 IP Consult L3 Objective Data Vital Signs: [...] RDW Coeff of Nathaniel 15.5 H, Plt [id number], MPV 10.1, Immature Gran % (Auto) 3.300 H, Neut % (Auto) 81.9 H, Lymph % (Auto) 5.9 L, Delta % (Auto) 8.0, Eos % (Auto) 0.7, [...] 81.9 H, Lymph % (Auto) 5.9 L, Delta % (Auto) 8.0, Eos % (Auto) 0.7,Baso [...] Caldera MD; Dr. Lizzeth Riggs MD~ Signed [facility] Work Phone: 1([phone]) 660-903607-11-2023 Progress note Author Ryan Tinoco [facility] January 22, 2023 8:38am Note Date/Time January 22, 2023 8:22 am [facility] Medical Records Department [address] [place] [address] Progress Note - Hospitalist 01/22/23 0819 MR#: [id number] Acct: [id number] Name: RICHARD ROY Rep #:[id number] : 1945 77 From: Ryan Delgado PCP: Dr. Luis Caldera MD Status :ADM IN Location: ICU CVICU 2-1 Reason for Visit Reason for Visit: [...] 87.8 H, Lymph % (Auto) 7.5 L, Delta % (Auto) 2.4, Eos % (Auto) 0.0, [...] Clarity Clear, Urine pH 5.0, Ur Specific [place] 1.020, Urine Protein 15 H, Urine Glucose [...] RDW Coeff of Nathaniel 15.5 H, Plt [id number], MPV 10.1, Immature Gran % (Auto) 3.300 H, Neut % (Auto) 81.9 H, Lymph % (Auto) 5.9 L, Delta % (Auto) 8.0, Eos % (Auto) 0.7, [...] havingirregular heartbeat after midnight, initially A-fib on crown pouncer. After that about 5 AM patient started [...] is a 77-year-old gentleman being admitted from [facility] for multiple episodes of syncope and upper [...] the . His medical care is under [facility]. 01/22: Hemoglobin dropped to 8.9. [...] there was 2 dropped heartbeat in EKG. technical support agent shows heart rate slowed down to 48 to 60/min. EKG in the morning about 6 AM today shows sinus rhythm with second- degree Mobitz type II block, RBBB, LAFB bifascicular block. Patient has history of bifascicular block. I talked to the patient's and informed her about the update. Patient has history of ascending aortic aneurysmand had that repaired along with aortic valve in [facility]. His elevators inspector is Dr. Huston in [facility]. I think this is most probably due to start of the octreotide drip as patient was in sinus normal rhythm at time ofadmission. Octreotide discontinued. Supervisor Drying And Softening consulted. 2D echo ordered. 3. Essential hypertension [...] or advanced directive. His is power of site reliability engineer for health. After discussion of benefits/risks procedures involved with full code, DNR CC arrest and DNR CC, the patient and his opted for full code. Patient does want artificial life support including intubation, tube feed, ventilator and/chest compression, central venous catheter, vasopressor and DC shock if needed Charges/Coding Visit Charges Inpatient E&M: 69751 [facility] 01/22/23 0838 <Electronically signed by Ryan Tinoco MD> Cosigner Signature (if applicable): CC: ~ Signed [facility] Work Phone: 1(408) 561-396007-10-2023 Consult note Author Liu Hackett [facility] January 21, 2023 7:07pm Note Date/Time January 21, 2023 7:04 pm [facility] Medical Records Department [address] [place] [id number] Consultation - GI 01/21/23 1902 MR#: [id number] Acct: [id number] Name: RICHARD ROY Rep #:[id number] : 1945 77 From: Liu Hackett DO PCP: Dr. Luis Caldera MD Status :ADM IN Location: ICU CVICU20 2-1 HPI Consult Data Date of Consult: 01/21/23 HPI Narrative Reason for Consultation: GI bleed HPI Narrative: RICHARD ROY, is a 77 M who presents with melena goals from long-term. He is on warfarin for history of DVT and atrial fibrillation. [facility] re[facility]. He was admitted between 01/05 to 01/08/23 for confusion and generalized weakness, stroke was ruled out and was sent to long-term there. Started getting confused within the past [...] down to 10.9 from 13.1 on discharge. [facility] Medical History Amputation of right great [...] Hx of abdominal surgery Social History housing: long-term current occupational status: retired Smoking Status: Never [...] 87.8 H, Lymph % (Auto) 7.5 L, Delta % (Auto) 2.4, Eos % (Auto) 0.0, [...] Clarity Clear, Urine pH 5.0, Ur Specific [place] 1.020, Urine Protein 15 H, Urine Glucose [...] 6 hours. Charges/Coding Visit Charges Inpatient E&M: 20124 Init Hosp L3 01/21/23 190 <Electronically signed by Liu Hackett DO> Cosigner Signature (if applicable): CC: Dr. Luis Caldera MD~ Signed [facility] Work Phone: 1(709) 582-370907-10-2023 Discharge summary Author Dandy Sauer [facility] January 21, 2023 5:25pm Note Date/Time January 21, 2023 9:06 am [facility] Medical Records Department [address] [place] [address] Emergency Department Summary 01/21/23 MR#: [id number] Acct: [id number] Name: RICHARD ROY Rep #:[id number] : 1945 77 From: Dandy Sauer MD PCP: Dr. Luis Caldera MD Status :ADM IN Location: ICU CVICU20 2-1 HPI History of Present Illness Chief Complaint: Syncope Informant: spouse/S.O., EMS and SNF Narrative Narrative: Patient sent from [facility] where he has been for several weeks [...] pain, but he denies it right now. [facility] Medical History Amputation of right great [...] 09:[address] Dandy Sauer MD) housing: long-term current occupational status: retired Smoking Status: Never [...] place including the state. Downgoing toes bilaterally [place] Coma Scale: document GCS findings To Voice [...] 87.8 H Lymph % (Auto) 7.5 L Delta % (Auto) 2.4 Eos % (Auto) 0.0 [...] Management Discussion w/another healthcare provider: Hospitalist and Entry Level Project Engineer (GI) Critical Care Time Critical Care Time: Yes Critical care time (excluding procedures): 30-74 minutes (33 min), Including time spent:, Discussing w/Patient &/or Family/Assembly Hand, Discussing w/Consultants, Arranging Admission or Transfer and Performing Direct Patient Care at Bedside Discharge Plan Dx/Rx/DC Orders Clinical Impression: Acute encephalopathy, Syncope, Supratherapeutic INR, ABLA (acute blood loss anemia), Upper gastrointestinal bleeding, Warfarin-induced coagulopathy Disposition Disposition: Acute Care Hospital [facility] Capacity Capacity Assessment Tool Can the patient [...] your Primary Care Provider. Call [facility] ([phone]) or report to the closest Emergency Room. Call 911 if necessary. 01/21/23 1725 <Electronically signed by Dandy Sauer MD> Cosigner Signature (if applicable): CC: Dr. Luis Caldera MD ~ Signed [facility] Work Phone: 1(633) 215-935907-10-2023 History and physical note Author Ryan Tinoco [facility] January 21, 2023 12:24pm Note Date/Time January 21, 2023 11:5 8am [facility] Medical Records Department [address] [place] [id number] H&P Exam - Hospitalist 01/21/23 1156 MR#: [id number] Acct: [id number] Name: RICHARD ROY Rep #:[id number] : 1945 77 From: Ryan Delgado PCP: Dr. Luis Caldera MD Status :ADM IN Location: ICU CVICU20 2-1 HPI - General General Date of Admission: 01/21/23 Date of Service: 01/21/23 Chief Complaint: Patient was unresponsive in the morning. Had large black tarrystool. HPI Narrative RICHARD ROY, is a 77 M gentleman was brought from [facility] to long-term for syncopal episodes and black tarry stool. Prior to that he was admitted between 01/05 to 01/08/23 for confusion and generalized weakness, stroke was ruledout and was sent to long-term there. Patient is not a good historian. As per the nursing report, patient had multiple short syncopal episodes in the morning after he had a large black tarry stool. Patient had been having dark stool for last couple days in long-term. Patient does not remember himself from dementia/depression. [...] further admitted in in the context of [facility] Medical History Amputation of right great [...] Hx of abdominal surgery Social History housing: long-term current occupational status: retired Smoking Status: Never [...] 87.8 H, Lymph % (Auto) 7.5 L, Delta % (Auto) 2.4, Eos % (Auto) 0.0, [...] Clarity Clear, Urine pH 5.0, Ur Specific [place] 1.020, Urine Protein 15 H, Urine Glucose [...] is a 77-year-old gentleman being admitted from [facility] for multiple episodes of syncope and upper [...] the . His medical care is under [facility]. 2 Syncopal episode most likely [...] or advanced directive. His is power of site reliability engineer for health. After discussion of benefits/risks procedures involved with full code, DNR CC arrest and DNR CC, the patient and his opted for full code. Patient does want artificial life support including intubation, tube feed, ventilator and/chest compression, central venous catheter, vasopressor and DC shock if needed Total time spent in [id number] encounter in discussion of advanced directive 17 [...] 87.8 H, Lymph % (Auto) 7.5 L, Delta % (Auto) 2.4, Eos % (Auto) 0.0, [...] Clarity Clear, Urine pH 5.0, Ur Specific [place] 1.020, Urine Protein 15 H, Urine Glucose (UA) 100 H, Urine Ketones 15 H, Urine Occult Blood Negative, Urine Nitrite Negative, Urine Bilirubin 1 H, Urine Urobilinogen Normal, Ur Leukocyte Esterase Negative, Urine RBC 0 SEEN, Urine WBC 0-5 SEEN, Ur Squamous Epith Cells 0-5 SEEN, Urine Bacteria 0 SEEN, Urine Mucus 0 SEEN Charges/Coding Visit Charges Inpatient E&M: 79407 Init Hosp L3 Procedures Hospitalists Procedures: 23871 Advncd Care Plan 30 Min 01/21/233 <Electronically signed by Ryan Tinoco MD> Cosigner [...] MD; Dr. Ryan Tinoco MD ~* Signed [facility] Work Phone: 1(178) 486-419606-23-2023 Miscellaneous Notes* Telephone Encounter - Amada Cohn [...] again recommend ER evaluation. documented in this encounterMer[facility]06-23-2023 Miscellaneous Notes* Telephone Encounter - Tamika Grijalva LPN - 01/04/2023 8:27 AM EDT No return call received, however, noted patient now scheduled for OV with PCP for 01/04/23. * Telephone Encounter - Amada Cohn Ma - 01/03/2023 4:09 PM EDT Tried to reach pt EC [facility], line still just rings. Amada Cohn Ma * [...] 01/04. Vannessa Jorge RN documented in this encounterMercy Health [facility]06-22-2023 History of Present illness Narrative* Justina [...] included: Therapeutic exercise, Neuromuscular re-education, Therapeutic activities, Self-residential management, and Gait training. Goals for Episode [...] PARTIALLY MET, improved 8 to 9 reps [place] in home exercise program including cardiovascular exercise. [...] with an (*). Patient education as noted. Self-Chcf Management: 1: *strongly enouraged f/u with physician [...] 5 Justina Escoto PT documented in this encounterMercy [facility]06-19-2023 History of Present illness Narrative* Justina [...] Total Treatment Time Minutes (timed/untimed): 42 Ira KashuALISIA real PT documented in this encounterMercy [facility]06-15-2023 History of Present illness Narrative* Justina Escoto, PT - 12/27/2022 11:02 AM EDT Episode [...] Total Treatment Time Minutes (timed/untimed): 40 Ira Richard, SERVICE EMPLOYEE Justina Escoto, PT documented in this encounterMercy Health [facility]06-12-2023 History of Present illness Narrative* Justina [...] was facilitated with verbal and visual cueing. Self-Chcf Management: 1: *strongly encouraged pt. to be [...] 40 Justina Escoto PT documented in this encounterMercy Health [facility]06-05-2023 History of Present illness Narrative* Justina [...] of gait belt. Patient education as noted. Self-Chcf Management: 1: *discussed automatic lights 2: *discussed [...] 40 Justina Escoto PT documented in this encounterMercy Health [facility]06-02-2023 History of Present illness Narrative* Justina [...] early due to pt. early arrival. Pt. deniesfalls. Pain: Pain Pain Level: 0 Pain Location: [...] 40 Justina Escoto PT documented in this encounterMercy Health [facility]05-31-2023 History of Present illness Narrative* Justina [...] Total Treatment Time Minutes (timed/untimed): 40 Justina O'Rafa, PT documented in this encounterMercy Health [facility]05-09-2023 Miscellaneous Notes* Telephone Encounter - GABI [...] to the pharmacy. Please call patient at: [phone]. Nola Castro Pss documented in this encounterMercy Health [facility]05-08-2023 Miscellaneous Notes* Telephone Encounter - Tania [...] 3.2 Current dose: 10 mg Mon and Sat and 7.5 mg all other days Last INR: PT INR 2.5 10/22/2022 Current dose of coumadin is: 10mg M & W, 7.5mg all other days. Last date of dose change: unknown. Previous INR (date and result): 09/24/2022 2.5 documented in this encounterMercy Health [facility] Hospital04-10-2023 History of Present illness Narrative* Zachary [...] Patient, Diabetic Foot Care documented in this encounterMercy Health [facility] Hospital04-10-2023 Instructions* Patient Instructions* Zachary Obregon - [...] (or decreased sensation in your feet) a metal furniture assembly supervisor should always cut your toenails. Be [...] Go to your health care provider or metal furniture assembly supervisor to treat these conditions. documented in this encounterMercy Health [facility] Hospital03-14-2023 Miscellaneous Notes* Telephone Encounter - Rebecca [...] Information or narrative: no documented in this encounterMercy Health Kings [facility] Hospital02-24-2023 Miscellaneous Notes* Telephone Encounter - Suzanne Connelly RN - 09/07/2022 1:11 PM EST Call to patient. Provided number to schedule- [phone]. Offered to transfer patient to schedulebut patient declined to schedule stating he could call later. PAOLA Potter, RN September 07, 2022 1:11 PM * Telephone Encounter - Jojo Kaur MD - 09/07/2022 11:39 AM EST Suzanne please let patient know how to proceed with driving evaluation I already put the order in computer documented in this encounterMercy Health Kings [facility] Hospital02-24-2023 History of Present illness Narrative* Jojo [...] evaluation of folllow up after hospitalization in [facility]. 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 ([facility]) 05/25/2018 History of transfusion Hyperlipidemia LDL goal < 100 04/01/2012 NSTEMI (non-ST elevated myocardial infarction) ([facility]) Pulmonary embolus, right ([facility]) 09/25/2013 Status post aortic valve repair 2005 Thoracic aneurysm without mention of rupture Type 2 diabetes mellitus with stage 3 chronic kidney disease, with long-term current use of insulin([facility]) 06/20/2016 Vitamin D deficiency 01/03/2022 PSH: PAST SURGICAL HISTORY Procedure Laterality Date ABDOMINAL SURGERY HX AMPUTATION METATARSAL+TOE,SINGLE Right 05/25/2018 with delayed closure on 05/28/18. Dr. Obregon at [facility] COLONOSCOPY 10/10/2021 repeat in 3 [...] one time a week. blood sugar diagnostic (One True MediaTOUCH ULTRA TEST) test strip Test blood sugar(s) [...] gait ,unsteady Cannot tandem Jojo Kaur M.D. [facility] Neurological [place] Department of Neurology Total time in minutes [...] at night. documented in this encounterMercy Health Kings [facility] Hospital02-14-2023 Miscellaneous Notes* Telephone Encounter - Tamika [...] no Tania Heller LPN documented in this encounterMercy Health Kings [facility] Hospital02-02-2023 Miscellaneous Notes* Telephone Encounter - Grecia [...] notify patient. Grecia Bustillo documented in this encounterMercy Health Kings Mills Hospital01-31-2023 Miscellaneous Notes* Telephone Encounter - Tamika [...] Information or narrative: no documented in this encounterMercy Health Kings Mills Hospital01-26-2023 History of Present illness Narrative* Abdulaziz [...] 12 months ago. Going to schedule appointment [facility]. 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 Asymtpomatic still on medical management. Has completed his home PT/OT. Echo and stress test at [facility] were negative/normal. Has follow up with Dr. Huston on 12/03. questioning if they should be seen sooner. BP well controlled with current regimen <130/80. BPH: With use of flomax, patient is getting up once at night to urinate. Has weak stream, but denies straining, incomplete emptying, dysuria, hematuria, incontinence. Followed up with ENT in [place] for chronic frontal sinusitis on CT/MRI going back to February. Told this did not require treatment. F/u PRN. Denies sinus pressure/pain/congestion. Past medical history, appointments, medications, allergies reviewed. Previous Medical History PAST MEDICAL HISTORY Diagnosis Date BPH (benign prostatic hyperplasia) Cholelithiasis 09/25/2013 Chronic neutrophilia Benign-Dr. 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 ([facility]) 05/25/2018 History of transfusion Hyperlipidemia LDL goal < 100 04/01/2012 Pulmonary embolus, right ([facility]) 09/25/2013 Status post aortic valve repair 2005 Thoracic aneurysm without mention of rupture Type 2 diabetes mellitus with stage 3 chronic kidney disease, with long-term current use of insulin([facility]) 06/20/2016 Vitamin D deficiency 01/03/2022 Previous Surgical History PAST SURGICAL HISTORY Procedure Laterality Date ABDOMINAL SURGERY HX AMPUTATION METATARSAL+TOE,SINGLE Right 05/25/2018 with delayed closure on 05/28/18. Dr. Obregon at [facility] COLONOSCOPY 10/10/2021 repeat in 3 [...] by mouth once daily. blood sugar diagnostic (One True MediaTOUCH ULTRA TEST) test strip Test blood sugar(s) [...] Abs Lymph 1.00 - 4.00 k/uL 1.81 Delta% % 6.9 Abs Delta <0.87 k/uL 0.86 Eosin% % 3.1 Abs [...] long-term current use of insulin ([facility]) -ICD9: 250.60, 357.2, V58.67, ICD10: E11.40, Z79.4 (primary diagnosis) improved control - Continue current medications - Blood glucose monitoring on a four times a day schedule - Encouraged regular aerobic exercise and weight loss - Follow up in 6 months, sooner should any other issues arise. - Discussed diabetic education issues of nursing home diabetic complications, hypoglycemic symptoms, hyperglycemic symptoms, [...] reigmen. Abdulaziz Caldera MD documented in this encounterMercy Health Kings [facility] Hospital01-23-2023 Miscellaneous Notes* Telephone Encounter - Tamika [...] be taking this. Please advise pt. Mila Anne Castro LPN documented in this encounterMercy Health Kings [facility] Hospital01-23-2023 History of Present illness Narrative* Zachary [...] or electronic medical record. documented in this encounterMercy Health Kings Mills Hospital01-17-2023 Miscellaneous Notes* Telephone Encounter - Melba [...] 2022. Rebecca Esteban LPN documented in this encounterMercy Health Kings Mills Hospital01-13-2023 Miscellaneous Notes* Telephone Encounter - Meghana Burgess - 07/27/2022 9:55 AM EST [employer] message not read as of 07/27/2022. Called and spoke with patient. Appt rescheduled to 09/07/2022 at 11:00 AM Meghana Aditya * Telephone Encounter - Meghana Burgess - 07/05/2022 4:08 PM EST Due to change in provider's schedule, appt on 08/21/2022 needs rescheduled. Patient notified via [employer] message on 07/05/2022. Meghana Burgess documented in this encounterMercy Health Kings Mills Hospital01-12-2023 Miscellaneous Notes* Telephone Encounter - Abdulaziz Caldera MD - 07/26/2022 3:09 PM EST Thanks. * Telephone Encounter - Ann Castillo RN - 07/26/2022 3:04 PM EST Darlyn, a nurse with [facility] calling to state she has discharged pt from correction today. Pt is doing really well. No call back needed. Thank you. documented in this encounterMercy Health [facility] Hospital01-11-2023 Miscellaneous Notes* Telephone Encounter - Suzanne Lino RN - 07/25/2022 1:42 PM EST Last Office Visit: 07/12/2022 Future Office Visit: 08/09/2022 Requested Prescriptions Pending Prescriptions Disp Refills amLODIPine (NORVASC) 2.5 mg tablet 30 tablet 5 Sig: Take 1 tablet by mouth once daily. Date of Last Labs: 03/02/2022 documented in this encounterMercy Health Kings Mills Hospital01-03-2023 Miscellaneous Notes* Telephone Encounter - Abdulaziz Caldera MD - 07/17/2022 12:58 PM EST Reviewed and agree. * Telephone Encounter - Halima Diaz RN - 07/17/2022 12:51 PM EST Maverick PT calling from [facility] to report plan of care for patient and PT will visit patient 2 times a week for 3 weeks. PT will work with patient on functional mobility training. Halima Diaz RN documented in this [facility]01-03-2023 Miscellaneous Notes* Telephone Encounter - Abdulaziz Caldera MD - 07/17/2022 11:18 AM EST Reviewed. * Telephone Encounter - Eva Schmid LPN - 07/17/2022 11:12 AM EST Barbi from [facility] calling with OT plan of care, one time visit only, patient denies any further OT needs. No call back needed. documented in this [facility]12-30-2022 Miscellaneous Notes* Telephone Encounter - Ewa Andino Ma - 07/13/2022 11:30 AM EST Left detailed message on confidential line Ewa Andino Ma * Telephone Encounter - Abdulaziz Caldera MD - 07/13/2022 11:01 AM EST agree * Telephone Encounter - Ann Castillo RN - 07/13/2022 10:00 AM EST Chiki, a nurse with [facility] calling with Longterm Plan of Care for patient: Patient will be seen 1 time per week for 4 weeks for BP monitoring. No call back needed if provider agreeable. Thank you. documented in this encounterMercy Health Kings [facility] Hospital12-29-2022 Miscellaneous Notes* Telephone Encounter - Ewa Andino Ma - 07/12/2022 10:53 AM EST Karly was notified Ewa Andino Ma * Telephone Encounter - Abdulaziz Caldera MD - 07/12/2022 10:47 AM EST Agree and will follow * Telephone Encounter - Marcella Alvarez RN - 07/12/2022 10:07 AM EST Karly with [facility] called and reports Pt was discharged yesterday and they received a referral for PT/OT/SN. They are going to do their start of care tomorrow, and she was asking if the provider would be willing to follow. documented in this encounterMercy Health Kings Mills Hospital12-26-2022 Miscellaneous Notes* Telephone Encounter - Suzanne Lino RN - 07/09/2022 11:46 AM EST Last Office Visit: 04/16/2022 Future Office Visit: 09/17/2022 Requested Prescriptions Pending Prescriptions Disp Refills dulaglutide (TRULICITY) 1.5 mg/0.5 mL pen injector 12 Each 3 Sig: Inject 1.5 mg subcutaneously one time a week. Inject once per week. Discard Pen After Date of Last Labs: 03/02/2022 documented in this encounterMercy Health Kings [facility] Hospital12-12-2022 Miscellaneous Notes* Telephone Encounter - Tania [...] patient. Tania Heller LPN documented in this encounterMercy Health Kings Mills Hospital11-02-2022 Miscellaneous Notes* Telephone Encounter - Mila [...] you. Mila Castro LPN documented in this [facility]10-04-2022 History of Present illness Narrative* Jojo Kaur [...] evaluation of folllow up after hospitalization in [facility]. he was admitted because of syncopal [...] others Since covid hit they went to [facility] and was staying in the house by [...] with long-term current use of insulin([facility]) 06/20/2016 Vitamin D deficiency 01/03/2022 PSH: PAST SURGICAL HISTORY Procedure Laterality Date ABDOMINAL SURGERY HX AMPUTATION METATARSAL+TOE,SINGLE Right 05/25/2018 with delayed closure on 05/28/18. Dr. Obregon at [facility] COLONOSCOPY 10/10/2021 repeat in 3 [...] week. Discard Pen After blood sugar diagnostic ([employer]ceipts ULTRA TEST) test strip Test blood sugar(s) [...] gait ,unsteady Cannot tandem Jojo Kaur M.D. [facility] [place] Department of Neurology Total time in minutes [...] at night. documented in this encounterMercy Health Kings Mills Hospital10-04-2022 Miscellaneous Notes* Telephone Encounter - Abdulaziz Caldera MD - 04/17/2022 11:24 AM EDT Reviewed. * Telephone Encounter - MERYL Zamudio - 04/17/2022 11:03 AM EDT Behavioral Health Social Work Progress Note Patient identified for [facility] from: PCP Reason for referral: Resources Behavioral Health Resources: Psychology - talk therapy [facility] encounter type: Telephone Encounter Attempts to Outreach: 1 attempt Referral made: Psychology - External Psychology-External referral type: Therapy Reason for external referral: Wait times at [facility] too long Final Disposition: Resources given Patient Discharged?: Yes Patient reported that caregiver was able to meet their needs today?: Yes SW placed a phone call to patient at the request of the PCP. Pt reported he is looking for talk therapy referrals at this time. SW provided the following referrals via phone: [facility] [employer] [facility] [address], [facility] [address] *counseling [facility] [address] [place], [place] [address] *counseling [place] [facility] [address], [address] [place] [address] *counseling Cristina [facility] [address] [place] [address] FEDERICO Zamudio April 17, 2022 documented in this encounterMercy Health Kings Mills Hospital10-03-2022 History of Present illness Narrative* Abdulaziz [...] Diabetic retinopathy of right eye ([facility]) mild Diverticulosis of colon (without mention [...] delayed closure on 05/28/18. Dr. Obregon at [facility] COLONOSCOPY 10/10/2021 repeat in 3 [...] week. Discard Pen After blood sugar diagnostic (SVXRUCH ULTRA TEST) test strip Test blood sugar(s) [...] Abs Lymph 1.00 - 4.00 k/uL 1.81 Delta% % 6.9 Abs Delta <0.87 k/uL 0.86 Eosin% % 3.1 Abs [...] arise. - Discussed diabetic education issues of extermination inspector diabetic complications, hypoglycemic symptoms, hyperglycemic symptoms, [...] regimen. Abdulaziz Caldera MD documented in this encounterMercy Health Kings Mills Hospital10-03-2022 Evaluation note* Diagnosis Type 2 diabetes [...] tract symptoms (LUTS) documented in this encounter [facility]09-23-[facility]22 History of Present illness Narrative* Roselia Madrigal, MARYLU.COMMUNICATIONS ENGINEERING TECHNICIAN - 04/06/2022 9:40 AM EDT 04/06/2022 Patient [...] Diabetes mellitus with neurological manifestation ([facility]) 09/08/2010 Diverticulosis of colon (without mention of hemorrhage) Encounter for monitoring Coumadin therapy 09/23/2013 INR goal 2.5-3.5 Essential hypertension, benign 10/28/2012 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 FOR CHOLESTEROL. blood sugar diagnostic (SVXRUCH ULTRA TEST) test strip Test blood sugar(s) [...] about his lack of motivation Roselia Madrigal APRN.KOSTAS Prescription instructions reviewed with patient as applicable. [...] which included preparing to see the patient, [id number] patient care, completing clinical documentation, obtaining and/or reviewing separately obtained history, performing a medically appropriate examination, and counseling and educating the patient/family/caregiver. documented in this encounterMercy Health Kings Mills Hospital09-21-2022 Miscellaneous Notes* Telephone Encounter - Valencia [...] of coumadin is: 10 mg Mon and Wed, then 7.5 mg all other days. Last date of dose change: Unk. Previous INR (date and result): 2.9 on 03/07/22 Additional Clinical Information or narrative: no Routed to [facility] Provider to review and advise. Razia Shaver Ma * Telephone Encounter - Razia Shaver Ma - 04/04/2022 10:02 AM EDT ----- Message from Roselia Madrigal APRN.COMMUNICATIONS ENGINEERING TECHNICIAN sent at 04/03/2022 2:47 PM EDT ----- Please forward INR to doctor bone char puller Roselia Madrigal APRN.COMMUNICATIONS ENGINEERING TECHNICIAN documented in this encounterMercy Health Kings Mills Hospital09-16-2022 History of Present illness Narrative* Zachary Sawantanny - 03/30/2022 3:46 PM EDT Last saw [...] Martinez LPN documented in this encounterMercy Health Kings Mills Hospital09-16-2022 Instructions* Patient Instructions* Zachary Obregon - [...] (or decreased sensation in your feet) a metal furniture assembly supervisor should always cut your toenails. Be [...] Go to your health care provider or metal furniture assembly supervisor to treat these conditions. documented in this encounterMercy Health Kings Mills Hospital09-09-2022 History of Present illness Narrative* Rosa [...] 01/12/22 through 03/15/22 Goals updated on 03/23/2022. [place] in home exercise program. (Met) Patient will [...] Poon PT documented in this encounterMercy Health Kings Mills Hospital09-08-2022 Miscellaneous Notes* Telephone Encounter - Maggy Nelson Ibarra Pss - 03/22/2022 1:49 PM EDT Pharmacy verified in [facility] Patient has been identified by name and [...] Ibarra Pss documented in this encounterMercy Health Kings [facility] Hospital09-02-2022 History of Present illness Narrative* Rosa [...] 40 ALISIA Whiting PT documented in this encounterMercy Health Kings Mills Hospital08-29-2022 History of Present illness Narrative* Rosa [...] Treatment Time Minutes (timed/untimed): 41 Karen Weber, ALISIA Poon PT documented in this encounterMercy Health Kings Mills Hospital08-26-2022 Miscellaneous Notes* Addendum Note - Rosa Elena Poon PT - 03/09/2022 1:18 PM EDTAddended by: ROSA ELENA POON on: 03/09/2022 01:18 PM Modules accepted: Orders documented in this [facility]08-26-2022 History of Present illness Narrative* Rosa [...] 01/12/22 through 03/15/22 Goals updated on 03/09/2022. [place] in home exercise program. (Met) Patient will [...] Patient to be seen for Therapeutic exercise (13794);Neuromuscular re-education (12805);Gait Training (58532);Patient/Family/Caregiver Education PLAN FOR NEXT VISIT: Add bridging [...] Poon PT documented in this encounterMercy Health Kings [facility] Hospital08-24-2022 Miscellaneous Notes* Telephone Encounter - Amada [...] Ma Cma documented in this encounterMercy Health Kings Mills Hospital08-24-2022 Instructions* Patient Instructions* Abdulaziz Caldera MD - 03/07/2022 11:45 AM EDT Please take 2,000 units of vitamin D daily over the counter. documented in this encounterMercy Health Kings Mills Hospital08-24-2022 History of Present illness Narrative* Abdulaziz Caldera MD - 03/07/2022 11:19 AM EDT Chief Complaint Patient presents with: 6 Month Exam ER F/U HPI Richard Roy is a 76 year old male who presents here today for ER Follow Up.. Patient evaluated at [facility] ED on 03/02 for complaint [...] delayed closure on 05/28/18. Dr. Obregon at [facility] COLONOSCOPY 10/10/2021 repeat in 3 [...] ONCE DAILY. FOR CHOLESTEROL. blood sugar diagnostic (Seamless Receipts ULTRA TEST) test strip Test blood sugar(s) [...] Abs Lymph 1.00 - 4.00 k/uL 1.81 Delta% % 6.9 Abs Delta <0.87 k/uL 0.86 Eosin% % 3.1 Abs [...] Caldera MD documented in this encounterMercy Health Kings [facility] Hospital08-22-2022 History of Present illness Narrative* Rosa [...] Poon PT documented in this encounterMercy Health [facility] Hospital08-19-2022 History of Present illness Narrative* Rosa [...] Poon PT documented in this encounterMercy Health [facility] Hospital08-15-2022 History of Present illness Narrative* Rosa [...] Treatment Time Minutes (timed/untimed): 45 Rosa Elena Lemon, PT documented in this encounterMercy Health Kings Mills Hospital08-12-2022 History of Present illness Narrative* Rosa Elena Cleve PT - 02/23/2022 4:20 PM EDT Episode [...] Treatment Time Minutes (timed/untimed): 43 Karen Gus, SERVICE EMPLOYEE Rosa Elena Poon PT documented in this encounterMercy Health Kings [facility] Hospital08-03-2022 History of Present illness Narrative* Rosa [...] Poon PT documented in this encounterMercy Health [facility] Hospital07-29-2022 History of Present illness Narrative* Rosa [...] 01/12/22 through 03/15/22 Goals updated on 02/09/2022. [place] in home exercise program. (Met) Patient will [...] Patient to be seen for Therapeutic exercise (25964);Neuromuscular re-education (59522);Gait Training (92133);Patient/Family/Caregiver Education PLAN FOR NEXT VISIT: Continue to [...] Poon PT documented in this encounterMercy Health Kings [facility] Hospital07-26-2022 Miscellaneous Notes* Telephone Encounter - Nola [...] pharmacy. No need to notify patient. Nola Gloria Pss documented in this encounterMercy Health Kings Mills Hospital07-22-2022 History of Present illness Narrative* Cortney Levin, PT - 02/02/2022 2:14 PM EDT Episode [...] Richard Bonilla Stephon tolerated the session with no issues. He [...] 2: Forward and backward stepping over 6 ugstavo with 1 UE assist x 10 each [...] Whiting PT documented in this encounterMercy Health Kings Mills Hospital07-21-2022 Miscellaneous Notes* Telephone Encounter - Mila [...] pharmacy. No need to notify patient. Eulalia Sedinger [employer] documented in this encounterMercy Health Kings Mills Hospital07-19-2022 History of Present illness Narrative* Justina Escoto, PT - 01/30/2022 2:16 PM EDT Episode Visit Count: 4 Therapist That Will Oversee The Plan Of Care: PjsameeraRosa Elena Start of Care Date: 01/12/22 Onset Date: [...] Treatment Time Minutes (timed/untimed): 43 Karen Weber, SERVICE EMPLOYEE Justina Escoto, PT documented in this encounterMercy Health Kings Mills Hospital07-12-2022 Miscellaneous Notes* Telephone Encounter - Rebecca [...] Gonzales RN documented in this encounterMercy Health Kings Mills Hospital07-12-2022 History of Present illness Narrative* Chiki [...] THERAPY PHYSICAL THERAPY TREATMENT NOTE ASSESSMENT: Irene Roy tolerated the session with no issues. [...] Whiting PT documented in this encounterMercy Health Kings Mills Hospital07-08-2022 Miscellaneous Notes* Telephone Encounter - Maggy [...] Please advise. documented in this encounterMercy Health Kings Mills Hospital07-01-2022 History of Present illness Narrative* Rosa [...] of Care: created on 01/12/22 through 03/15/22 [place] in home exercise program. Patient will demonstrate [...] Planned: 16 Planned Treatment Interventions: Therapeutic exercise (77429);Neuromuscular re- education (33485);Gait Training (08509);Patient/Family/Caregiver Education PLAN FOR NEXT VISIT: Review HEP [...] Poon PT documented in this encounterMercy Health [facility] Hospital07-01-2022 Miscellaneous Notes* Telephone Encounter - Ewa [...] Please advise documented in this encounterMercy Health Kings Mills Hospital06-29-2022 Miscellaneous Notes* Telephone Encounter - Mila [...] Thank you! documented in this encounterMercy Health Kings Mills Hospital06-29-2022 Miscellaneous Notes* Result QuickNote - Justina Monique APRN.CNP - 01/10/2022 11:33 AM EDT Please call patient and notify him. Echocardiogram is stable. Valve replacement function is stable.No cardiac structure/function changes to explain his syncope/collapse. Thank you! documented in this encounterMercy Health Kings Mills Hospital06-24-2022 History of Present illness Narrative* Jojo [...] medical record. REFERRING PHYSICIAN: Abdulaziz Caldera [address] [facility] [address] Accompanied by: Spouse ASSESSMENT: 76 year old [...] patient . CC: Episode of mental status chane HxCC: 76 year old male , who presents for evaluation of folllow up after hospitalization in [facility]. he was admitted because of syncopal [...] others Since covid hit they went to [facility] and was staying in the house by [...] Diagnosis Date Cholelithiasis 09/25/2013 Chronic neutrophilia Benign-Dr. aCzares Diabetes mellitus with neurological manifestation (HCC) 09/08/2010 [...] with long-term current use of insulin([facility]) 06/20/2016 Vitamin D deficiency 01/03/2022 PSH: PAST SURGICAL HISTORY Procedure Laterality Date ABDOMINAL SURGERY HX AMPUTATION METATARSAL+TOE,SINGLE Right 05/25/2018 with delayed closure on 05/28/18. Dr. Obregon at [facility] COLONOSCOPY 10/10/2021 repeat in 3 [...] by mouth once daily. blood sugar diagnostic (Seamless Receipts ULTRA TEST) test strip Test blood sugar(s) [...] gait ,unsteady Cannot tandem Jojo Kaur M.D. [facility] [place] Department of Neurology January 05, 2022 Total [...] at night. documented in this encounterMercy Health Kings Mills Hospital06-21-2022 Miscellaneous Notes* Telephone Encounter - Justina Garcia LPN - 01/02/2022 8:06 AM EDT I spoke to and informed him of Justina's response to lipid panel results. Patient voiced understanding. Justina Garcia LPN * Telephone Encounter - Justina Garcia LPN - 01/02/2022 7:43 AM EDT ----- Message from Justina Monique APRN.COMMUNICATIONS ENGINEERING TECHNICIAN sent at 01/02/2022 7:38 AM EDT ----- Please call patient and notify him cholesterol has good control. Thank you! documented in this encounterMercy Health Kings Mills Hospital06-20-2022 History of Present illness Narrative* Abdulaziz Caldera MD - 01/01/2022 10:20 AM EDT Chief Complaint Patient presents with: Hospital Follow Up: [facility] discharged 12/29/21 HPI Richard Roy is a 76 year old male who presents here today for Hospital Discharge Follow up. Accompanied today by his . Patient admitted to [facility] from 12/27 to 12/29 after presenting to the [facility] ED after being found slumped over his tractor at home earlier in the afteernoon. Had been working outside for unknown period of time. Had only eaten cookies and milk that day. Heat index over 100. Back to baseline at the time of evaluation by hospitalist at [facility]. Found to have leukocytosis at [place] [facility] and elevated lactic acid level. Noted [...] echo since it was not completed at [facility]. No other changes to regimen. 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 Dr. Obregon at [facility] COLONOSCOPY 10/10/2021 repeat in 3 [...] by mouth once daily. blood sugar diagnostic (One True MediaTOUCH ULTRA TEST) test strip Test blood sugar(s) [...] Caldera MD documented in this encounterMercy Health Kings Mills Hospital06-20-2022 Instructions* Patient Instructions* Justina Monique APRN.COMMUNICATIONS ENGINEERING TECHNICIAN - 01/01/2022 9:05 AM EDT High Blood [...] risk for high blood pressure. Developed by [employer]. Published by [employer]. Copyright 2014 [employer] and/or one of its subsidiaries. All rights reserved. documented in this encounterMercy Health Kings Mills Hospital06-20-2022 History of Present illness Narrative* Justina [...] bothexplain to me he was hospitalized at [facility] for 2 days last week for [...] LE swelling. Records have been requested from [facility]. He is unsure of what testing was completed. An echocardiogram was ordered at his last office visit with me.If this was not completed at [facility], I recommend this be completed for [...] use of insulin(HCC) 06/20/2016 PAST SURGICAL HISTORY Procedure Laterality Date ABDOMINAL SURGERY HX AMPUTATION METATARSAL+TOE,SINGLE Right 05/25/2018 with delayed closure on 05/28/18. Dr. Obregon at [facility] COLONOSCOPY 10/10/2021 repeat in 3 [...] daily. 90 tablet 3 blood sugar diagnostic (SVXRUCH ULTRA TEST) test strip Test blood sugar(s) [...] mL injection (DEFINITY) INTRAVENOUS DIRECTED PRN Justina Monique, STOGY ROLLER.COMMUNICATIONS ENGINEERING TECHNICIAN sodium chloride 0.9 % (flush) 10 mL (BD POSIFLUSH) 10 mL INTRAVENOUS DIRECTED PRN Justina Monique, STOGY ROLLER.COMMUNICATIONS ENGINEERING TECHNICIAN Review of Systems Constitutional: Negative for chills, [...] MRI of his head CAD -[facility] 2004 -stress testing 2013 with no [...] 8:57 AM documented in this encounterMercy Health Kings Mills Hospital06-19-2022 Note. MICRO - Microbiology PROCEDURE: Blood Culture (bacterial) [*1] SOURCE: Blood BODY SITE: COLLECTED DATE/TIME: 12/27/2021 17:43 EDT RECEIVED DATE/TIME: 12/28/2021 14:37 EDT START DATE/TIME: 12/28/2021 14:37 EDT FREE TEXT SOURCE: FINAL REPORTS Final Report [] Verified Date/Time/Personnel: 12/31/2021 07:29 EDT Staphylococcus epidermidis Isolated from anaerobe bottle only. Refer to previous culture for susceptibility. [id number] PRELIMINARY REPORTS Preliminary Report [] Verified Date/Time/Personnel: 12/30/2021 09:39 EDT Staphylococcus epidermidis Isolated from anaerobe bottle only. Refer to previous culture for susceptibility. [id number] Preliminary Report [] Verified Date/Time/Personnel: 12/28/2021 15:59 EDT Culture has been received in lab and is no growth to date. Routine cultures are held for 5 days. STAINS GSANA [] Verified Date/Time/Personnel: 12/29/2021 14:08 EDT Gram Positive Cocci in clusters Performing Locations *1: This test was performed at: [address], [address]- , [facility] ([place]12-31-2021 Note. MICRO - Microbiology PROCEDURE: Blood Culture [...] Locations *1: This test was performed at: [address], [address]- , [facility] ([place]12-27-2021 SARS-CoV-2 (COVID-19) RNA ANGELY+probe Ql (Nph)Positive 2 *ABN* (12/27/21 5:43 PM)AO Auto Urine SSComment on above:Result Comment: positive covid olga ruthr Evaluation + Plan note Diagnostic Tests Pending * Urinalysis 12/27/21 * Blood Culture (bacterial) 12/27/21 * Blood Culture (bacterial) 12/27/21 [facility] 06-02-2022 History of Present illness Narrative* Abdulaziz Caldera MD - 12/14/2021 3:13 PM EDT Chief Complaint Patient presents with: Covid Follow Up HPI Richard Roy is a 76 year old male who presents here today for Above Complaints.. Patient positive for COVID in the [facility] ER last week on 12/06. [...] delayed closure on 05/28/18. Dr. Obregon at [facility] COLONOSCOPY 10/10/2021 repeat in 3 [...] Caldera MD documented in this encounterMercy Health Kings Mills Hospital05-27-2022 History of Present illness Narrative* Abdulaziz [...] today for Above Complaints.. Patient evaluated at [facility] ER on 12/06 for complaint of generalized weakness, cough, and feeling off balance and developed cough which started on 12/04. Denied other COVID symptoms at that time. Lab workup in the ER was unremarkable aside from positive COVID test and INR of 3.3. UA unremarkable. CXR showed some ill defined densities in RLL which was likely 2/2 COVID infection. 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 Dr. Obregon at [facility] COLONOSCOPY 10/10/2021 repeat in 3 [...] by mouth once daily. blood sugar diagnostic (SVXRUCH ULTRA TEST) test strip Test blood sugar(s) [...] these interactions. [facility] [place] [facility] Since his symptoms are mild, he would prefer to rest at home. Discussed risks and benefits of treatment and that he is high risk for severe infection. Red flags for re-assessment reviewed with patient in detail. I spent a total of 25 minutes on the date of the service which included preparing to see the patient, [id number] patient care, completing clinical documentation, obtaining and/or reviewing separately obtained history, performing a medically appropriate examination, counseling and educating the pat ient/family/caregiver and ordering medications, tests, or procedures. Abdulaziz Caldera MD documented in this encounterMercy Health Kings Mills Hospital05-27-2022 Miscellaneous Notes* Telephone Encounter - Abdulaziz [...] with one of our providers or with [email or web address] care online. * Telephone Encounter - Rosa Elena Velasco - 12/08/2021 2:16 PM EDT Patient called stating he was at [facility] ER on 12/06. Tested positive for covid. Patient was informed tocontact the office within 5 days to inform. Please advise patient when he can be seen in office. documented in this encounterMercy Health Kings Mills Hospital05-09-2022 Miscellaneous Notes* Telephone Encounter - Eulalia Gaston [facility] - 11/20/2021 9:49 AM EDT Patient has been identified by name and date of : Yes Pending Prescriptions Disp Refills METFORMIN ER 500 MG 24 HR TABLET,EXTENDED RELEASE Sig: Take 1 tablet by mouth daily with breakfast. NUHA: No OMAR-09/06/21 Labs-08/30/21 NOV-03/07/22 RX INSTRUCTIONS: Patient aware RX will be sent to pharmacy. No need to notify patient. Eulalia Gaston [employer] documented in this encounterMercy Health Kings Mills Hospital04-11-2022 Instructions* Patient Instructions* Marcella Park PA-C - 10/23/2021 1:25 PM EDT -Recommend daily fiber supplement and plenty of fluids The following instructions are important for you related to your office visit today with the [facility] General Surgeons. INSTRUCTIONS FOR DIVERTICULA I [...] you should contact our office immediately @ [phone] and ask to be transferred to the General Surgery department. The following instructions are important for you related to your office visit today with the [facility] Surgeons. INSTRUCTIONS FOLLOWING A POLYP [...] you should contact our office immediately @ [phone] and ask to be transferred to the General Surgery department. documented in this encounterMercy Health Kings Mills Hospital04-11-2022 History of Present illness Narrative* Marcella Park PA-C - 10/23/2021 1:09 PM EDT FOLLOW UP VISIT - ENDOSCOPY NAME: Richard Bonilla [facility] NO.: [id number] DATE OF SERVICE: 10/23/2021 : 1945 REFERRING [...] which included preparing to see the patient, [id number] patient care, completing clinical documentation, obtaining and/or reviewing separately obtained history, counseling and educating the patient/family/caregiver, communicating with other HCPs (not separately reported), independently interpreting results (not separately reported) and communicating results to the patient/family/caregiver. Marcella Park PA-C documented in this encounterMercy Health Kings Mills Hospital03-29-2022 Nurse Note* Caroline Larkin RN - [...] - 10/10/2021 8:52 AM EDT [facility] PRE-OP NURSING HAND OFF NOTE SBAR Hand off given to Brandi Brown RN. Hand off was communicated verbally and at the patient's bedside and all questions were answered. Caroline Larkin RN documented in this encounterMercy Health Kings Mills Hospital03-29-2022 History and physical note * Richard [...] delayed closure on 05/28/18. Dr. Obregon at [facility] COLONOSCOPY FLX DX W/COLLJ SPEC [...] by mouth once daily. blood sugar diagnostic (Seamless Receipts ULTRA TEST) test strip Test blood sugar(s) [...] entered by the nurse and reviewed by dc Nursing Notes: Cortney Starr LPN 08/16/2021 8:38 [...] offered a surgery/procedure at a [facility] facility. I have counseled the patient [...] Park PA-C documented in this encounterMercy Health Kings Mills Hospital03-24-2022 Miscellaneous Notes* Telephone Encounter - Mila Castro LPN - 10/05/2021 3:40 PM EDT Spoke with pt and information listed below given. Pt verbalizes understanding. Mila Castro LPN * Telephone Encounter - Violette Call Pss [...] send both by 10/06/21, so he can chart picker. Patient aware RX will be sent to pharmacy. No need to notify patient. Violette Call [facility] Miscellaneous Notes* Telephone Encounter - Nelson [...] Diaz RN [facility] Miscellaneous Notes* Telephone Encounter - Garland Vicente - 08/16/2021 9:36 AM EST 10-10-2021 [facility] NoteHNO ID: [id number] Author: REY Burt Service: Radiology Author Type: Corporate Coordinator Type: Progress Notes Filed: 07/27/2021 10:50 AM [...] Roy DATE: July 27, 2021 TIME: 10:49 [id number] of Past illness Narrative* Problem Noted [...] encounter (statuses as of 10/04/2021) [facility] Narrative* Problem [...] encounter (statuses as of 10/05/2021) [facility] Narrative* Problem [...] encounter (statuses as of 10/11/2021) [facility] Narrative* Problem [...] encounter (statuses as of 10/16/2021) [facility] Narrative* Problem [...] encounter (statuses as of 10/27/2021) [facility] Narrative* Problem [...] encounter (statuses as of 11/20/2021) [facility] Narrative* Problem [...] encounter (statuses as of 12/12/2021) [facility]* Problem [...] encounter (statuses as of 12/13/2021) [facility]arr[facility]* Problem [...] encounter (statuses as of 12/14/2021) [facility] Narr[facility]* Problem [...] encounter (statuses as of 01/01/2022) [facility]* Problem [...] encounter (statuses as of 01/02/2022) [facility]* Problem [...] encounter (statuses as of 01/02/2022) [facility]* Problem [...] encounter (statuses as of 01/06/2022) [facility]* Problem [...] encounter (statuses as of 01/10/2022) [facility]* Problem [...] encounter (statuses as of 01/11/2022) [facility]* Problem [...] encounter (statuses as of 01/12/2022) [facility]* Problem [...] encounter (statuses as of 01/12/2022) [facility]* Problem [...] encounter (statuses as of 01/19/2022) [facility]* Problem [...] encounter (statuses as of 01/23/2022) [facility]* Problem [...] encounter (statuses as of 01/25/2022) [facility]* Problem [...] encounter (statuses as of 01/30/2022) [facility]* Problem [...] encounter (statuses as of 02/01/2022) [facility]* Problem [...] encounter (statuses as of 02/02/2022) [facility]* Problem [...] encounter (statuses as of 02/02/2022) [facility]* Problem [...] encounter (statuses as of 02/06/2022) [facility]* Problem [...] encounter (statuses as of 02/09/2022) [facility]* Problem [...] encounter (statuses as of 02/14/2022) [facility]* Problem Noted Date Resolved Date S/P aortic valve replacement 10/25/201401/2016 Pulmonary embolus, right 09/25/2013052 018 Callus of foot 09/25/2013 07/20/2019 Tinea of nail 09/25/2013 07/20/2019 Encounter for monitoring Coumadin therapy 201307/20/2019 Overview: INR goal 2.5-3.5 Morbid obesity with BMI of 40.0-44.9, adult 04/12/2012/2018 Skin lesion 03/21/2011 06/20/2016 Cellulitis and abscess 11/22/2010 6 Non-healing surgical wound 09/19/201006/20 Abscess 09/08/2010 06/20/2016 Sciatica 05/04/2009 06/20/2016 documented as of this encounter (statuses as of 02/26/2022) [facility] N[facility]* Problem [...] encounter (statuses as of 03/02/2022) [facility]* Problem [...] encounter (statuses as of 03/05/2022) [facility]* Problem [...] encounter (statuses as of 03/07/2022) [facility]* Problem [...] encounter (statuses as of 03/08/2022) [facility]* Problem [...] encounter (statuses as of 03/09/2022) [facility]* Problem [...] encounter (statuses as of 03/12/2022) [facility]* Problem [...] encounter (statuses as of 03/16/2022) [facility]* Problem [...] encounter (statuses as of 03/23/2022) [facility]* Problem [...] encounter (statuses as of 04/03/2022) [facility]* Problem [...] encounter (statuses as of 04/04/2022) [facility]* Problem [...] encounter (statuses as of 04/06/2022) [facility]* Problem [...] encounter (statuses as of 04/17/2022) [facility]* Problem [...] of this encounter (statuses as of 04/17/2022) [place] [id number] History of Past illness Narrative* Problem Noted [...] encounter (statuses as of 04/19/2022) [facility] Problem [...] encounter (statuses as of 05/16/2022) [facility] Problem [...] encounter (statuses as of 06/25/2022) [facility]* Problem [...] encounter (statuses as of 07/14/2022) [facility]* Problem [...] encounter (statuses as of 07/15/2022) [facility]* Problem [...] encounter (statuses as of 07/18/2022) [facility]* Problem [...] encounter (statuses as of 07/18/2022) [facility]* Problem [...] encounter (statuses as of 07/19/2022) [facility]* Problem [...] encounter (statuses as of 07/20/2022) [facility]* Problem [...] encounter (statuses as of 07/25/2022) [facility]* Problem [...] encounter (statuses as of 07/26/2022) [facility]* Problem [...] encounter (statuses as of 07/27/2022) [facility]* Problem [...] encounter (statuses as of 07/31/2022) [facility] Problem [...] encounter (statuses as of 08/06/2022) [facility]* Problem [...] of this encounter (statuses as of 08/07/2022) [facility]* Problem [...] of this encounter (statuses as of 08/09/2022) [facility]* Problem [...] encounter (statuses as of 08/14/2022) [facility]* Problem [...] encounter (statuses as of 08/16/2022) [facility]* Problem [...] encounter (statuses as of 08/28/2022) [facility] Problem [...] encounter (statuses as of 09/07/2022) [facility] Problem [...] encounter (statuses as of 09/09/2022) [facility]* Problem [...] encounter (statuses as of 09/25/2022) [facility]* Problem [...] encounter (statuses as of 10/23/2022) [facility]* Problem [...] encounter (statuses as of 11/20/2022) [facility]* Problem [...] encounter (statuses as of 11/20/2022) [facility]* Problem [...] encounter (statuses as of 12/13/2022) [facility]* Problem [...] encounter (statuses as of 12/14/2022) [facility]* Problem [...] encounter (statuses as of 12/18/2022) [facility]* Problem [...] encounter (statuses as of 12/25/2022) [facility]* Problem [...] encounter (statuses as of 12/27/2022) [facility]* Problem [...] encounter (statuses as of 12/31/2022) [facility]* Problem [...] encounter (statuses as of 01/03/2023) [facility]* Problem [...] encounter (statuses as of 01/04/2023) [facility]* Problem [...] encounter (statuses as of 01/04/2023) [facility]* Problem [...] encounter (statuses as of 01/25/2023) [facility]* Problem [...] of this encounter (statuses as of 01/29/2023) [facility] note* Diagnosis Type 2 diabetes mellitus with diabetic neuropathy, with long-term current use of insulin (HCC) Status post aortic valve repair Other postprocedural status Chronic anticoagulation Long-term (current) use of anticoagulants [facility] Diagnosis Colon cancer screening Special screening for malignant neoplasms, colon documented in this encounter [facility] note* Diagnosis Colon cancer screening- Primary Special screening for malignant neoplasms, colon documented in this encounter [facility] note* Diagnosis Diverticulosis- Primary Diverticulosis of colon (without mention of hemorrhage) Cecal polyp documented in this encounter [facility] noteNo assessment information availableWFulton [facility] Work Phone: Evaluation note* Diagnosis COVID-19- Primary documented in this encounter [facility] note* Diagnosis COVID-19- Primary documented in this encounter [facility] note* Diagnosis Onset Date Resolution Status Acute dehydration acute ANTHONY (acute kidney injury) [place] Heat exhaustion acute Hyperkalemia acute Lactic acidosis acute Leukocytosis acute [facility] Work Phone: Evaluation note* Diagnosis Hyperlipidemia with target LDL less than 100- Primary Other and unspecified hyperlipidemia Primary hypertension Unspecified essential hypertension Thoracic aortic aneurysm without rupture (HCC) Thoracic aneurysm without mention of rupture 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 Syncope, unspecified syncope type Obesity, Class II, BMI 35-39.9 Obesity, unspecified documented in this encounter [facility] note* Diagnosis Syncope and collapse- Primary Altered mental status, unspecified altered mental status type Urinary incontinence, unspecified type Benign prostatic hyperplasia with nocturia Nocturia Vitamin D deficiency, unspecified Wound of left lower extremity, initial encounter Encounter for screening for malignant neoplasm of prostate Special screening for malignant neoplasm of prostate documented in this encounter [facility] note* Diagnosis Abnormality of gait due to impairment of balance- Primary Altered mental status, unspecified altered mental status type [facility] Chronic anticoagulation Long-term (current) use of anticoagulants Thoracic aortic aneurysm without rupture (HCC) Thoracic aneurysm without mention of rupture Status post aortic valve repair Other postprocedural status [facility] Diagnosis Type 2 diabetes mellitus with diabetic neuropathy, with long-term current use of insulin (HCC)- Primary [facility]* Diagnosis Abnormality of gait due to impairment of balance- Primary [facility]* Diagnosis Abnormality of gait due to impairment of balance- Primary [facility]* Diagnosis Vitamin D deficiency Unspecified vitamin D deficiency [facility]* Diagnosis Abnormality of gait due to impairment of balance- Primary [facility]* Diagnosis Vitamin D deficiency Unspecified vitamin D deficiency [facility]* Diagnosis Type 2 diabetes mellitus with stage 3 chronic kidney disease, with long-term current use of insulin ([facility]) [facility]* Diagnosis Abnormality of gait due to impairment of balance- Primary [facility]* Diagnosis Type 2 diabetes mellitus with diabetic neuropathy, with long-term current use of insulin ([facility]) [facility]* Diagnosis Abnormality of gait due to impairment of balance- Primary [facility]* Diagnosis Abnormality of gait due to impairment of balance- Primary [facility]* Diagnosis Onset Date Resolution Status Acute dehydration resolved Heat exhaustion resolved [facility] Work Phone: Evaluation note* Diagnosis Abnormality of gait due to impairment of balance- Primary [facility]* Diagnosis Status post aortic valve repair Other postprocedural status Chronic anticoagulation Long-term (current) use of anticoagulants [facility]* Diagnosis Generalized weakness- Primary Other malaise and fatigue Supratherapeutic INR Abnormal coagulation profile ANTHONY (acute kidney injury) (HCC) Acute kidney failure, unspecified [facility] Diagnosis Abnormality of gait due to impairment of balance- Primary [facility]* Diagnosis Abnormality of gait due to impairment of balance- Primary [facility]* Diagnosis Urinary incontinence, unspecified type [facility]* Diagnosis Abnormality of gait due to impairment of balance- Primary [facility]* Diagnosis Onychomycosis- Primary Dermatophytosis of nail Pain in toe of left foot Pain in limb Amputated toe of right foot (HCC) Diabetic polyneuropathy associated with type 2 diabetes mellitus ([facility]) [facility]* Diagnosis Generalized weakness- Primary Other malaise and fatigue Encounter for immunization Need for other specified prophylactic vaccination against single bacterial disease Mild depression Depressive disorder, not elsewhere classified [facility]* Diagnosis Generalized anxiety disorder- Primary Polyneuropathy Unspecified hereditary and idiopathic peripheral neuropathy [facility]* Diagnosis Urinary incontinence, unspecified type [facility]* Diagnosis Onset Date Resolution Status History of pulmonary embolism acute History of thoracic aortic aneurysm repair acute NSTEMI, initial episode of care acute HTN (hypertension) [facility] Work Phone: Evaluation note* Diagnosis Dizziness- Primary Dizziness and giddiness Chronic frontal sinusitis [facility]* Diagnosis Type 2 diabetes mellitus with diabetic neuropathy, with long-term current use of insulin ([facility])- Primary Diabetic polyneuropathy associated with type 2 diabetes mellitus (HCC) NSTEMI (non-ST elevated myocardial infarction) ([facility]) Acute myocardial infarction, subendocardial infarction, episode [...] long-term current use of insulin ([facility]) 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, macular edema presence unspecified ([facility]) [facility]* Diagnosis Driving safety issue- Primary Other specified personal history presenting hazards to health [facility]* Diagnosis Onychomycosis- Primary Dermatophytosis of nail Pain in toe of left foot Pain in limb Amputated toe of right foot (HCC) Diabetic polyneuropathy associated with type 2 diabetes mellitus (HCC) [facility]* Diagnosis Spinal stenosis, lumbar region, without neurogenic claudication- Primary Primary osteoarthritis of both knees Primary localized osteoarthrosis, lower leg [facility]* Diagnosis Spinal stenosis, lumbar region, without neurogenic claudication- Primary Primary osteoarthritis of both knees Primary localized osteoarthrosis, lower leg [facility]* Diagnosis Spinal stenosis, lumbar region, without neurogenic claudication- Primary Primary osteoarthritis of both knees Primary localized osteoarthrosis, lower leg [facility]* Diagnosis Spinal stenosis, lumbar region, without neurogenic claudication- Primary Primary osteoarthritis of both knees Primary localized osteoarthrosis, lower leg [facility]* Diagnosis Spinal stenosis, lumbar region, without neurogenic claudication- Primary Primary osteoarthritis of both knees Primary localized osteoarthrosis, lower leg [facility]* Diagnosis Spinal stenosis, lumbar region, without neurogenic claudication- Primary Primary osteoarthritis of both knees Primary localized osteoarthrosis, lower leg [facility]* Diagnosis Onset Date Resolution Status Confusion acute Weakness acute [facility] Work Phone: Evaluation note* Diagnosis Onset Date Resolution Status Confusion acute Weakness acute ABLA (acute blood loss anemia) acute Acute encephalopathy acute Supratherapeutic INR acute Syncope acute Upper gastrointestinal bleeding acute Warfarin-induced coagulopathy acute [facility] Work Phone: Evaluation note* Diagnosis Onset [...] acute Warfarin-induced coagulopathy acute HTN (hypertension) chronic [facility] Work Phone: Evaluation note* Diagnosis Onset [...] type II acute Sick sinus syndrome acute [facility] Work Phone: Evaluation note* Diagnosis Onset [...] (INR) acute UTI (urinary tract infection) acute [facility] Work Phone: Evaluation note* Diagnosis Onset [...] UTI (urinary tract infection) acute Weakness acute [facility] Work Phone: Evaluation note* Diagnosis Onset [...] Second degree AV block, Mobitz type II [facility] Work Phone: Evaluation note* Diagnosis Onset [...] Second degree AV block, Mobitz type II [facility] Work Phone: Evaluation note* Diagnosis Onset [...] Second degree AV block, Mobitz type II [facility] Work Phone: Evaluation note* Diagnosis Onset Date Resolution Status Presence of cardiac pacemaker acute Syncope acute Second degree AV block, Mobitz type II chronic Sick sinus syndrome chronic Atrial fibrillation acute HLD (hyperlipidemia) acute Presence of cardiac pacemaker acute HTN (hypertension) chronic Second degree AV block, Mobitz type II [facility] Work Phone: Evaluation note* Diagnosis Onset Date Resolution Status Atrial fibrillation acute HLD (hyperlipidemia) acute Presence of cardiac pacemaker acute HTN (hypertension) chronic Second degree AV block, Mobitz type II [facility] Work Phone: History and physical note Author Dr. Aly [facility] January 04, 2023 4:32pm Note Date/Time January 04, 2023 4:12 pm [facility] Medical Records Department [address] [place] [id number] H&P Exam - Hospitalist 01/04/23 1607 MR#: [id number] Acct: [id number] Name: RICHARD ROY Rep #:[id number] : 1945 77 From: Karen Aly MD PCP: Dr. Luis Caldera MD Status :ADM LUIS ANGEL Location: [place] [address] HPI - General General Date of Admission: 01/04/23 Date of Service: 01/04/23 Chief Complaint: Confusion, falls. HPI Narrative The patient is a 77 y/o M w/ PMHx: AAA s/p repair, Hx COVID-19, Hx GI bleed, Valvular heart disease s/p AVR, HTN, HLD, VTE w/ Hx DVT/PE, Diabetes mellitus type II, Obesity who presents to the [facility] ED on 01/04/23 with history [...] no acute intracranial abnormality, right maxillary sinusitis. [facility] Medical History Amputation of right great [...] 78.3 H, Lymph % (Auto) 12.8 L, Delta % (Auto) 5.9, Eos % (Auto) 1.7, [...] Sl. Cloudy, Urine pH 6.0, Ur Specific [place] 1.020, Urine Protein 15 H, Urine Glucose [...] type II, Obesity who presents to the [facility] ED on 01/04/23 with history [...] 60 minutes. Charges/Coding Visit Charges Inpatient E&M: 68573 Init Hosp L2 01/04/23 1632 <Electronically signed by Karen Aly MD> Cosigner Signature (if applicable): CC: Dr. Karen Aly MD; Dr. Luis Caldera MD~ Signed [facility] Work Phone: Hospital course Narrative No data available for this section [facility] Hospital Discharge instructions No data available for this section [facility] Hospital Discharge instructions Additional Instructions Work-up [...] days of antibiotics [facility] Work Phone: Progress note No data available for this section [facility] Progrhos note Author Liu Hackett [facility] January 26, 2023 3:50pm Note Date/Time January 26, 2023 3:50 pm [facility] Medical Records Department [address] [place] [id number] Progress Note - GI 01/26/23 1549 MR#: [id number] Acct: [id number] Name: RICHARD ROY Rep #:[id number] : 1945 77 From: Liu Hackett DO PCP: Dr. Luis Caldera MD Status :ADM IN Location: [place] [address] Subjective Subjective Patient is doing well today. [...] 78.4 H, Lymph % (Auto) 8.1 L, Delta % (Auto) 9.6, Eos % (Auto) 1.6, [...] Heart rate in 50s.. Discussed with the elevators inspector. No chest pain or tightness. Physical exam [...] ensure healing. Charges/Coding Visit Charges Inpatient E&M: 44285 Subs Hosp L3 01/26/23 1550 <Electronically signed by Liu Hackett DO> Cosigner Signature (if applicable): CC: ~ Signed [facility] Work Phone: Progress note Author Smith Leija [facility] February 13, 2023 3:58pm Note Date/Time February 13, 2023 3:5 8pm [facility] Medical Records Department [address] [place] [address] Progress Note - Infect Disease 02/13/23 1557 MR#: [id number] Acct: [id number] Name: RICHARD ROY Rep #:[id number] : 1945 77 From: Smith huang MD PCP: Dr. Luis Caldera MD Status :ADM IN Location: [place] [address] Physical Exam Narrative Feeling better, no fever, [...] Dr. Giraldo (2) Presence of cardiac pacemaker: 02/13/238 <Electronically signed by Smith Leija MD> Cosigner Signature (if applicable): CC: ~ Signed [facility] Work Phone: Reason for referral (narrative)* Outpatient Procedure (Routine) - Closed Specialty Diagnoses / Procedures Referred By Linn t Referred To Contact [facility] Diagnoses Colon cancer screening Procedures COLONOSCOPY SCREENING COLONOSCOPY FLX DX W/COLLJ SPEC WHEN PFRMD Marcella Park PA-C [address] [place] [address] [facility] [address] [address] Referral ID Status Reason Start Date Expiration Date V isits Requested Visits Authorized [id number] Closed Auto-Generate d Referral 08/16/2021 08/16/2022 1 1 [facility] for referral (narrative)* Outpatient Procedure (Routine) - Closed Specialty Diagnoses / Procedures Referred By Contac t Referred To Contact [facility] Diagnoses Colon cancer screening Procedures COLONOSCOPY SCREENING COLONOSCOPY FLX DX W/COLLJ SPEC WHEN PFMarcella Cho PA-C [address] [place] [address] [facility] Disease [address] [address] Referral ID Status Reason Start Date Expiration Date V isits Requested Visits Authorized [id number] Closed Auto-Generate d Referral 08/16/2021 08/16/2022 1 1 [facility] for referral (narrative)No reason for referral information availableWFulton [facility] Work Phone: Reason for visit Narrative* Outpatient Procedure (Routine) - Closed Specialty Diagnoses / Procedures Referred By Contac t Referred To Contact [facility] Diagnoses Colon cancer screening Procedures COLONOSCOPY SCREENING COLONOSCOPY FLX DX W/COLLJ SPEC WHEN Marcella Alatorre PA-C [address] [place] [address] [facility] Disease [address] [address] Referral ID Status Reason Start Date Expiration Date V isits Requested Visits Authorized [id number] Closed Auto-Generate d Referral 08/16/2021 08/16/2022 1 1 [facility] for visit Narrative* Outpatient Procedure (Routine) - Closed Specialty Diagnoses / Procedures Referred By Contac t [facility] Diagnoses Chronic anticoagulation Thoracic aortic aneurysm without rupture (HCC) Status post aortic valve repair Procedures ECHO TTE W/DOPPLER, Justina Arguelles, STOGY ROLLER.COMMUNICATIONS ENGINEERING TECHNICIAN [address] [place] [address] [facility] [address] Referral ID Status Reason Start Date Expiration Date V isits Requested Visits Authorized [id number] Closed Auto-Generate d Referral 07/03/2021 07/03/2022 1 1 [facility] Advance Directives No Advanced Directives Records FoundDocuments on File Type Date Recorded Patient Blueprint Developer Expl anation Advance Directive(s) 09/12/2021 7:14 AM Documents on File Type Date Recorded Patient Blueprint Developer Expl anation Advance Directive(s) 09/12/2021 7:14 AM Advance Directive Response Recorded Date/ Time Advance Directives Yes September 16 11:11pm Living Will No December 06, 2021 1 1:07pm Power of Staging Technician No December 06, 2021 11:07pm Advance Directive Response Recorded Date/ Time Name of Medical Power of Staging Technician Aníbal Roy December 27, 2021 10:36pm Advance Directives Yes September 16 11:11pm Living Will Yes December 27, 2021 10:36pm Power of Staging Technician Yes December 27 10:36pm Advance Directive Response Recorded Date/ Time Name of Medical Power of Staging Technician Aníbal Roy December 27, 2021 10:36pm Name of Medical Power of Staging Technician TEDDY ROY (SON ) March 02, 2022 2:34pm Advance Directives Yes September 16 11:11pm Living Will Yes March 02 2:34pm Power of Staging Technician Yes March 02, 022 2:34pm Advance Directive Response Recorded Date/ Time Name of Medical Power of Staging Technician teddy roy July 10, 2022 3:06am Advance Directives Yes September 16 10:11pm Living Will Yes July 10, 022 3:06am Power of Staging Technician Yes July 10, 2022 3:06am Advance Directive Response Recorded Date/ Time Name of Medical Power of Staging Technician ? January 04, 2023 11:15am Advance Directives Yes September 16 11:11pm Living Will Yes January 04, 2023 11:15am Power of Staging Technician Yes January 04 11:15am Advance Directive Response Recorded Date/ Time Name of Medical Power of Staging Technician Ciarra Roy (spouse), Teddy Roy (son) January 04, 2023 6:23pm Name of Medical Power of Staging Technician ANÍBAL ROY January 21, 2023 8:26am Advance Directives Yes September 16 11:11pm Living Will Yes January 21, 2023 8:26am Power of Staging Technician Yes January 21 8:26am Advance Directive Response Recorded Date/ Time Name of Medical Power of Staging Technician Ciarra Roy (spouse), Teddy Roy (son) January 04, 2023 6:23pm Name of Medical Power of Staging Technician Ciarra Roy January 21, 2023 12:23pm Advance Directives Yes September 16 11:11pm Living Will Yes January 21, 2023 12:23pm Power of Staging Technician Yes January 21 12:23pm Advance Directive Response Recorded Date/ Time Name of Medical Power of Staging Technician Ciarra Roy (spouse), Teddy Roy (son) January 04, 2023 6:23pm Name of Medical Power of Staging Technician Ciarra Roy (spouse) January 27, 2023 6:04pm Advance Directives Yes September 16 11:11pm Living Will Yes January 27, 2023 6:04pm Power of Staging Technician Yes January 27 6:04pm Name of Medical Power of Staging Technician Ciarra Roy January 21, 2023 12:23pm Advance Directive Response Recorded Date/ Time Name of Medical Power of Staging Technician Ciarra Roy (spouse), Teddy Roy (son) January 04, 2023 6:23pm Name of Medical Power of Staging Technician Ciarra Regant January 27, 2023 9:40pm Name of Medical Power of Staging Technician Ciarra Horse, February 10, 2023 9:27pm Advance Directives Yes September 16 11:11pm Living Will Yes February 10, 2023 9:27pm Power of Staging Technician Yes February 10 9:27pm Name of Medical Power of Staging Technician Ciarra Regant January 21, 2023 12:23pm Advance Directive Response Recorded Date/ Time Name of Medical Power of Staging Technician Ciarra Roy (spouse), Teddy Roy (son) January 04, 2023 6:23pm Name of Medical Power of Staging Technician Ciarra Regant January 27, 2023 9:40pm Name of Medical Power of Staging Technician Ciarra Robison, February 10, 2023 9:27pm Name of Medical Power of Staging Technician Ciarra MEEKS, February 11, 2023 4:25pm Advance Directives Yes September 16 11:11pm Living Will Yes February 11, 2023 4:25pm Power of Staging Technician Yes February 11 4:25pm Name of Medical Power of Staging Technician Ciarra Stephon January 21, 2023 12:23pm Advance Directive Response Recorded Date/ Time Name of Medical Power of Staging Technician Ciarra Roy (spouse), Teddy Roy (son) January 04, 2023 6:23pm Name of Medical Power of Staging Technician Ciarra Regant January 27, 2023 9:40pm Name of Medical Power of Staging Technician Ciarra Robison, February 10, 2023 9:27pm Name of Medical Power of Staging Technician Ciarra MEEKS, February 11, 2023 8:40pm Advance Directives Yes September 16 11:11pm Living Will Yes February 11, 2023 8:40pm Power of Staging Technician Yes February 11 8:40pm Name of Medical Power of Staging Technician Ciarra Regant January 21, 2023 12:23pm Advance Directive Response Recorded Date/ Time Name of Medical Power of Staging Technician Ciarra Roy January 27, 2023 9:40pm Name of Medical Power of Staging Technician Ciarra Robison, February 10, 2023 9:27pm Name of Medical Power of Staging Technician JEANNA Ciarra, w david February 11, 2023 8:40pm Advance Directives Yes September 16 11:11pm Living Will Yes February 11, 2023 8:40pm Power of Staging Technician Yes February 11 8:40pm Name of Medical Power of Staging Technician Ciarra Roy January 21, 2023 12:23pm Advance Directive Response Recorded Date/ Time Name of Medical Power of Staging Technician Ciarra Roy January 27, 2023 8:40pm Name of Medical Power of Staging Technician Ciarra Robison, February 10, 2023 8:27pm Name of Medical Power of Staging Technician Ciarra MEEKS w david February 11, 2023 7:40pm Advance Directives Yes September 16 10:11pm Living Will Yes February 11, 2023 7:40pm Power of Staging Technician Yes February 11 7:40pm Name of Medical Power of Staging Technician Ciarra Roy January 21, 2023 11:23am Advance Directive Response Recorded Date/ Time Name of Medical Power of Staging Technician Ciarra Roy January 27, 2023 8:40pm Name of Medical Power of Staging Technician Ciarra Robison, February 10, 2023 8:27pm Name of Medical Power of Staging Technician Ciarra MEEKS w david February 11, 2023 7:40pm Advance Directives Yes September 16 10:11pm Living Will No May 30, 2 023 11:36am Power of Staging Technician No May 30, 2023 11:36am Advance Directive Response Recorded Date/ Time Advance Directives Yes September 16 10:11pm Living Will No May 30, 2 023 11:36am Power of Staging Technician No May 30, 2023 11:36am Advance Directive Response Recorded Date/ Time Advance Directives Yes September 16 11:11pm Living Will No May 30, 2 023 12:36pm Power of Staging Technician No May 30, 2023 12:36pm Advance Directive [...] day post implant check RECURRENT GI BLEED RESIDENTIAL LABWORK AMS BACTEREMIA, CYSTITIS Urinary tract infection [...] day post implant check RECURRENT GI BLEED RESIDENTIAL LABWORK AMS LAB WORK BACTEREMIA, CYSTITIS Urinary tract infection BACTEREMIA, CYSTITIS BACTEREMIA, CYSTITIS LAB WORK LAB WORK 1 wk wound check LABWORK LABWORK LABWORK LABWORK LABWORK RESIDENTIAL LABWORK LABWORK 6 wk post PPM implant [...] day post implant check RECURRENT GI BLEED RESIDENTIAL LABWORK AMS LAB WORK BACTEREMIA, CYSTITIS Urinary tract infection BACTEREMIA, CYSTITIS BACTEREMIA, CYSTITIS LAB WORK LAB WORK 1 wk wound check LABWORK LABWORK LABWORK LABWORK LABWORK RESIDENTIAL LABWORK LABWORK 6 wk post PPM implant f/u / KR @ 2p S/P PACER IMPLANT 6 wk fu / NAA @ 1:30 LABWORK RESIDENTIAL LAB WORK RESIDENTIAL LABWORK RESIDENTIAL LAB WORK Reason for Visit Confusion Weakness [...] day post implant check RECURRENT GI BLEED RESIDENTIAL LABWORK AMS LAB WORK BACTEREMIA, CYSTITIS Urinary tract infection BACTEREMIA, CYSTITIS BACTEREMIA, CYSTITIS LAB WORK LAB WORK 1 wk wound check LABWORK LABWORK LABWORK LABWORK LABWORK RESIDENTIAL LABWORK LABWORK 6 wk post PPM implant f/u / KR @ 2p S/P PACER IMPLANT 6 wk fu / NAA @ 1:30 LABWORK RESIDENTIAL LAB WORK RESIDENTIAL LABWORK RESIDENTIAL LAB WORK RESIDENTIAL LAB WORK Reason for Visit Confusion Weakness [...] day post implant check RECURRENT GI BLEED RESIDENTIAL LABWORK AMS LAB WORK BACTEREMIA, CYSTITIS Urinary tract infection BACTEREMIA, CYSTITIS BACTEREMIA, CYSTITIS LAB WORK LAB WORK 1 wk wound check LABWORK LABWORK LABWORK LABWORK LABWORK RESIDENTIAL LABWORK LABWORK 6 wk post PPM implant f/u / KR @ 2p S/P PACER IMPLANT 6 wk fu / NAA @ 1:30 LABWORK RESIDENTIAL LAB WORK RESIDENTIAL LABWORK RESIDENTIAL LAB WORK RESIDENTIAL LAB WORK LABWORK Reason for Visit Acute [...] day post implant check RECURRENT GI BLEED RESIDENTIAL LABWORK AMS LAB WORK BACTEREMIA, CYSTITIS Urinary tract infection BACTEREMIA, CYSTITIS BACTEREMIA, CYSTITIS LAB WORK LAB WORK 1 wk wound check LABWORK LABWORK LABWORK LABWORK LABWORK RESIDENTIAL LABWORK LABWORK 6 wk post PPM implant f/u / KR @ 2p S/P PACER IMPLANT 6 wk fu / NAA @ 1:30 LABWORK RESIDENTIAL LAB WORK RESIDENTIAL LABWORK RESIDENTIAL LAB WORK RESIDENTIAL LAB WORK LABWORK LABWORK Reason for Visit [...] day post implant check RECURRENT GI BLEED RESIDENTIAL LABWORK AMS LAB WORK BACTEREMIA, CYSTITIS Urinary tract infection BACTEREMIA, CYSTITIS BACTEREMIA, CYSTITIS LAB WORK LAB WORK 1 wk wound check LABWORK LABWORK LABWORK LABWORK LABWORK RESIDENTIAL LABWORK LABWORK 6 wk post PPM implant f/u / KR @ 2p S/P PACER IMPLANT 6 wk fu / NAA @ 1:30 LABWORK RESIDENTIAL LAB WORK RESIDENTIAL LABWORK RESIDENTIAL LAB WORK RESIDENTIAL LAB WORK LABWORK LABWORK RESIDENTIAL LAB WORK Reason for Visit HTN (hypertension) [...] day post implant check RECURRENT GI BLEED RESIDENTIAL LABWORK AMS LAB WORK BACTEREMIA, CYSTITIS Urinary tract infection BACTEREMIA, CYSTITIS BACTEREMIA, CYSTITIS LAB WORK LAB WORK 1 wk wound check LABWORK LABWORK LABWORK LABWORK LABWORK RESIDENTIAL LABWORK LABWORK 6 wk post PPM implant f/u / KR @ 2p S/P PACER IMPLANT 6 wk fu / NAA @ 1:30 LABWORK RESIDENTIAL LAB WORK RESIDENTIAL LABWORK RESIDENTIAL LAB WORK RESIDENTIAL LAB WORK LABWORK LABWORK RESIDENTIAL LAB WORK Reason for Visit HTN (hypertension) [...] II Chief Complaint LABWORK LABWORK LABWORK LABWORK RESIDENTIAL LABWORK LABWORK 6 wk post PPM implant f/u / KR @ 2p S/P PACER IMPLANT 6 wk fu / NAA @ 1:30 LABWORK RESIDENTIAL LAB WORK RESIDENTIAL LABWORK RESIDENTIAL LAB WORK RESIDENTIAL LAB WORK LABWORK LABWORK RESIDENTIAL LAB WORK LABWORK Reason for Visit Presence of cardiac pacemaker Syncope Second degree AV block, Mobitz type II Sick sinus syndrome Atrial fibrillation HLD (hyperlipidemia) Presence of cardiac pacemaker HTN (hypertension) Second degree AV block, Mobitz type II Chief Complaint LABWORK RESIDENTIAL LABWORK LABWORK 6 wk post PPM implant f/u / KR @ 2p S/P PACER IMPLANT 6 wk fu / NAA @ 1:30 LABWORK RESIDENTIAL LAB WORK RESIDENTIAL LABWORK RESIDENTIAL LAB WORK RESIDENTIAL LAB WORK LABWORK LABWORK RESIDENTIAL LAB WORK RESIDENTIAL LAB WORK LABWORK LABWORK Reason for Visit Presence of cardiac pacemaker Syncope Second degree AV block, Mobitz type II Sick sinus syndrome Atrial fibrillation HLD (hyperlipidemia) Presence of cardiac pacemaker HTN (hypertension) Second degree AV block, Mobitz type II Chief Complaint RESIDENTIAL LABWORK LABWORK 6 wk post PPM implant f/u / KR @ 2p S/P PACER IMPLANT 6 wk fu / NAA @ 1:30 LABWORK RESIDENTIAL LAB WORK RESIDENTIAL LABWORK RESIDENTIAL LAB WORK RESIDENTIAL LAB WORK LABWORK LABWORK RESIDENTIAL LAB WORK RESIDENTIAL LAB WORK LABWORK RESIDENTIAL LAB WORK LABWORK Reason for Visit Presence of cardiac pacemaker Syncope Second degree AV block, Mobitz type II Sick sinus syndrome Atrial fibrillation HLD (hyperlipidemia) Presence of cardiac pacemaker HTN (hypertension) Second degree AV block, Mobitz type II Chief Complaint LABWORK 6 wk post PPM implant f/u / KR @ 2p S/P PACER IMPLANT 6 wk fu / NAA @ 1:30 LABWORK RESIDENTIAL LAB WORK RESIDENTIAL LABWORK RESIDENTIAL LAB WORK RESIDENTIAL LAB WORK LABWORK LABWORK RESIDENTIAL LAB WORK RESIDENTIAL LAB WORK LABWORK RESIDENTIAL LAB WORK LABWORK LABWORK Reason for Visit Presence of cardiac pacemaker Syncope Second degree AV block, Mobitz type II Sick sinus syndrome Atrial fibrillation HLD (hyperlipidemia) Presence of cardiac pacemaker HTN (hypertension) Second degree AV block, Mobitz type II Chief Complaint LABWORK 6 wk post PPM implant f/u / KR @ 2p S/P PACER IMPLANT 6 wk fu / NAA @ 1:30 LABWORK RESIDENTIAL LAB WORK RESIDENTIAL LABWORK RESIDENTIAL LAB WORK RESIDENTIAL LAB WORK LABWORK LABWORK RESIDENTIAL LAB WORK RESIDENTIAL LAB WORK LABWORK RESIDENTIAL LAB WORK RESIDENTIAL LABWORK LABWORK LABWORK Reason for Visit Presence of cardiac pacemaker Syncope Second degree AV block, Mobitz type II Sick sinus syndrome Atrial fibrillation HLD (hyperlipidemia) Presence of cardiac pacemaker HTN (hypertension) Second degree AV block, Mobitz type II Chief Complaint 6 wk post PPM implan t f/u / KR @ 2p S/P PACER IMPLANT 6 wk fu / NAA @ 1:30 LABWORK RESIDENTIAL LAB WORK RESIDENTIAL LABWORK RESIDENTIAL LAB WORK RESIDENTIAL LAB WORK LABWORK LABWORK RESIDENTIAL LAB WORK RESIDENTIAL LAB WORK LABWORK RESIDENTIAL LAB WORK RESIDENTIAL LABWORK LABWORK RESIDENTIAL LAB WORK LABWORK Reason for Visit Presence of cardiac pacemaker Syncope Second degree AV block, Mobitz type II Sick sinus syndrome Atrial fibrillation HLD (hyperlipidemia) Presence of cardiac pacemaker HTN (hypertension) Second degree AV block, Mobitz type II Chief Complaint LABWORK RESIDENTIAL LAB WORK RESIDENTIAL LABWORK RESIDENTIAL LAB WORK RESIDENTIAL LAB WORK LABWORK LABWORK RESIDENTIAL LAB WORK RESIDENTIAL LAB WORK LABWORK RESIDENTIAL LAB WORK RESIDENTIAL LABWORK LABWORK RESIDENTIAL LAB WORK LABWORK LABWORK LABWORK Chief Complaint RESIDENTIAL LAB WOR K RESIDENTIAL LABWORK RESIDENTIAL LAB WORK RESIDENTIAL LAB WORK LABWORK LABWORK RESIDENTIAL LAB WORK RESIDENTIAL LAB WORK LABWORK RESIDENTIAL LAB WORK RESIDENTIAL LABWORK LABWORK RESIDENTIAL LAB WORK LABWORK LABWORK LABWORK LABWORK Chief Complaint RESIDENTIAL LAB WOR K RESIDENTIAL LAB WORK LABWORK LABWORK RESIDENTIAL LAB WORK RESIDENTIAL LAB WORK LABWORK RESIDENTIAL LAB WORK RESIDENTIAL LABWORK LABWORK RESIDENTIAL LAB WORK LABWORK RESIDENTIAL LAB WORK LABWORK LABWORK LABWORK Chief Complaint RESIDENTIAL LAB WOR K LABWORK LABWORK RESIDENTIAL LAB WORK RESIDENTIAL LAB WORK LABWORK RESIDENTIAL LAB WORK RESIDENTIAL LABWORK LABWORK RESIDENTIAL LAB WORK LABWORK RESIDENTIAL LAB WORK LABWORK LABWORK LABWORK LABWORK Chief Complaint RESIDENTIAL LAB WOR K LABWORK LABWORK RESIDENTIAL LAB WORK RESIDENTIAL LAB WORK LABWORK RESIDENTIAL LAB WORK RESIDENTIAL LABWORK LABWORK RESIDENTIAL LAB WORK LABWORK RESIDENTIAL LAB WORK LABWORK LABWORK LABWORK RESIDENTIAL LABWORK LABWORK Chief Complaint LABWORK LABWORK RESIDENTIAL LAB WORK RESIDENTIAL LAB WORK LABWORK RESIDENTIAL LAB WORK RESIDENTIAL LABWORK LABWORK RESIDENTIAL LAB WORK LABWORK RESIDENTIAL LAB WORK LABWORK LABWORK LABWORK RESIDENTIAL LABWORK LABWORK LABWORK Chief Complaint LABWORK RESIDENTIAL LAB WORK RESIDENTIAL LAB WORK LABWORK RESIDENTIAL LAB WORK RESIDENTIAL LABWORK LABWORK RESIDENTIAL LAB WORK LABWORK RESIDENTIAL LAB WORK LABWORK LABWORK LABWORK RESIDENTIAL LABWORK LABWORK LABWORK LABWORK Chief Complaint RESIDENTIAL LAB WOR K RESIDENTIAL LAB WORK LABWORK RESIDENTIAL LAB WORK RESIDENTIAL LABWORK LABWORK RESIDENTIAL LAB WORK LABWORK RESIDENTIAL LAB WORK LABWORK LABWORK LABWORK RESIDENTIAL LABWORK LABWORK LABWORK LABWORK LABWORK Chief Complaint RESIDENTIAL LAB WOR K LABWORK RESIDENTIAL LAB WORK RESIDENTIAL LABWORK LABWORK RESIDENTIAL LAB WORK LABWORK RESIDENTIAL LAB WORK LABWORK LABWORK LABWORK RESIDENTIAL LABWORK LABWORK LABWORK LABWORK LABWORK LABWORK Chief Complaint RESIDENTIAL LAB WOR K LABWORK RESIDENTIAL LAB WORK RESIDENTIAL LABWORK LABWORK RESIDENTIAL LAB WORK LABWORK RESIDENTIAL LAB WORK LABWORK LABWORK LABWORK RESIDENTIAL LABWORK LABWORK LABWORK LABWORK LABWORK LABWORK LABWORK Chief Complaint RESIDENTIAL LAB WOR K LABWORK RESIDENTIAL LAB WORK RESIDENTIAL LABWORK LABWORK RESIDENTIAL LAB WORK LABWORK RESIDENTIAL LAB WORK LABWORK LABWORK LABWORK RESIDENTIAL LABWORK LABWORK LABWORK LABWORK LABWORK LABWORK LABWORK LABWORK Chief Complaint RESIDENTIAL LAB WOR K LABWORK RESIDENTIAL LAB WORK RESIDENTIAL LABWORK LABWORK RESIDENTIAL LAB WORK LABWORK RESIDENTIAL LAB WORK LABWORK LABWORK LABWORK RESIDENTIAL LABWORK LABWORK LABWORK LABWORK LABWORK LABWORK LABWORK RESIDENTIAL LAB WORK LABWORK Chief Complaint RESIDENTIAL LAB WOR K LABWORK RESIDENTIAL LAB WORK RESIDENTIAL LABWORK LABWORK RESIDENTIAL LAB WORK LABWORK RESIDENTIAL LAB WORK LABWORK LABWORK LABWORK RESIDENTIAL LABWORK LABWORK LABWORK LABWORK LABWORK LABWORK LABWORK RESIDENTIAL LAB WORK LABWORK LABWORK 6 M FU Chief Complaint RESIDENTIAL LAB WOR K RESIDENTIAL LABWORK LABWORK RESIDENTIAL LAB WORK LABWORK RESIDENTIAL LAB WORK LABWORK LABWORK LABWORK RESIDENTIAL LABWORK LABWORK LABWORK LABWORK LABWORK LABWORK LABWORK RESIDENTIAL LAB WORK LABWORK LABWORK LABWORK 6 M FU Reason for Visit Atrial fibrillation HLD (hyperlipidemia) Presence of cardiac pacemaker HTN (hypertension) Second degree AV block, Mobitz type II Chief Complaint RESIDENTIAL LABWORK LABWORK RESIDENTIAL LAB WORK LABWORK RESIDENTIAL LAB WORK LABWORK LABWORK LABWORK RESIDENTIAL LABWORK LABWORK LABWORK LABWORK LABWORK LABWORK LABWORK RESIDENTIAL LAB WORK LABWORK LABWORK LABWORK 6 M FU RESIDENTIAL LAB WORK Reason for Visit Atrial fibrillation HLD (hyperlipidemia) Presence of cardiac pacemaker HTN (hypertension) Second degree AV block, Mobitz type II Chief Complaint RESIDENTIAL LAB WOR K LABWORK RESIDENTIAL LAB WORK LABWORK LABWORK LABWORK RESIDENTIAL LABWORK LABWORK LABWORK LABWORK LABWORK LABWORK LABWORK RESIDENTIAL LAB WORK LABWORK LABWORK LABWORK 6 M LABWORK RESIDENTIAL LAB WORK Reason for Visit Atrial fibrillation HLD (hyperlipidemia) Presence of cardiac pacemaker HTN (hypertension) Second degree AV block, Mobitz type II Chief Complaint LABWORK LABWORK RESIDENTIAL LABWORK LABWORK 6 wk post PPM implant f/u / KR @ 2p S/P PACER IMPLANT 6 wk fu / NAA @ 1:30 LABWORK RESIDENTIAL LAB WORK RESIDENTIAL LABWORK RESIDENTIAL LAB WORK RESIDENTIAL LAB WORK LABWORK LABWORK RESIDENTIAL LAB WORK RESIDENTIAL LAB WORK LABWORK Reason for Visit Presence of cardiac pacemaker Syncope Second degree AV block, Mobitz type II Sick sinus syndrome Atrial fibrillation HLD (hyperlipidemia) Presence of cardiac pacemaker HTN (hypertension) Second degree AV block, Mobitz type II Chief Complaint Admit Date RESIDENTIAL LAB WORK July 01 4:00am RESIDENTIAL LAB WORK July 07 5:00am LABWORK July 27, 2024 5 :00am RESIDENTIAL LAB WORK August 04, 2024 5:00am RESIDENTIAL LAB WORK September 29, 2024 4 :00am [...] 2024 1:0 9pm Chief Complaint Admit Date RESIDENTIAL LAB WORK July 01 4:00am RESIDENTIAL LAB WORK July 07 5:00am LABWORK July 27, 2024 5 :00am RESIDENTIAL LAB WORK August 04, 2024 5:00am RESIDENTIAL LAB WORK September 29, 2024 4 :00am RESIDENTIAL LAB WORK October 05, 2024 5 :00am [...] Diagnoses Driving safety issue Procedures CONSULT TO HAT FORMING MACHINE OPERATOR OCCUPATIONAL THERAPY EVAL HIGH COMPLEX 60 MINS Jojo Kaur MD [address] [place] [address] [facility] [address] [address] Referral ID Status Reason Start Date Expiration Date Visits Requested Visits Authorized [id number] Authorized PCP Requested Referral Auto-Generate d Referral 09/07/2022 09/07/2023 99 99 Specialty Diagnoses / Procedures Referred By Linn carrillo Referred To Contact [facility] Diagnoses Polyneuropathy Procedures CONSULT TO PHYSICAL THERAPY PHYSICAL THERAPY EVALUATION HIGH COMPLEX 45 MINS Jojo Kaur MD [address] [place] [address] [facility] [address] [address] Referral ID Status Reason Start Date Expiration Date Visits Requested Visits Authorized [id number] Authorized PCP Requested Referral Auto-Generate d Referral 04/17/2022 04/17/2023 99 99 Specialty Diagnoses / Procedures Referred By Contac t Referred To Contact Psychology Diagnoses Generalized anxiety disorder Procedures CONSULT TO PSYCHOLOGY OFFICE/OUTPATIENT [facility] 60-74 MINUTES Jojo Kaur MD [address] [place] [address] Referral ID Status Reason Start Date Expiration Date Visits Requested Visits Authorized [id number] Pending Review PCP Requested Referral 04/17/2022 04/17/2023 1 1 Specialty Diagnoses / Procedures Referred By Contac t Referred To Contact Podiatry Diagnoses Type 2 diabetes mellitus with diabetic neuropathy, with long-term current use of insulin ([facility]) Procedures CONSULT TO PODIATRY OFFICE/OUTPATIENT [facility] 60-74 MINUTES PodlogRoselia hernandez APRN.[facility] [address] [place] [address] Referral ID Status Reason Start Date Expiration Date Visits Requested Visits Authorized [id number] Authorized PCP Requested Referral 01/12/2022 01/11/2023 1 1 Specialty Diagnoses / Procedures Referred By Contac t Referred To Contact [facility] Diagnoses Altered mental status, unspecified altered mental status type Procedures CONSULT TO SPEECH THERAPY OFFICE/OUTPATIENT [facility] 60-74 MINUTES Jojo Kaur MD [address] [place] [address] [facility] [address] [address] Referral ID Status Reason Start Date Expiration Date Visits Requested Visits Authorized [id number] Authorized Auto-Generat ed Referral 01/05/2022 01/05/2023 99 99 Specialty Diagnoses / Procedures Referred By Contac t Referred To Contact [facility] Diagnoses Abnormality of gait due to impairment of balance Procedures CONSULT TO PHYSICAL THERAPY PHYSICAL THERAPY EVALUATION HIGH COMPLEX 45 MINS Jojo Kaur MD [address] [place] [address] [facility] [address] [address] Referral ID Status Reason Start Date Expiration Date Visits Requested Visits Authorized [id number] Authorized PCP Requested Referral Auto-Generate d Referral 01/05/2022 01/05/2023 99 99 Specialty Diagnoses / Procedures Referred By Contac t Referred To Contact [facility] Diagnoses Altered mental status, unspecified altered mental status type Procedures EPIL EEG ROUTINE ELECTROENCEPHALOGRAM REC COMA/SLEEP ONLY Jjoo Kaur MD [address] [place] [address] [facility] [address] [place] [address] Referral ID Status Reason Start Date Expiration Date Visits Requested Visits Authorized [id number] Authorized Auto-Generat ed Referral 01/05/2022 01/05/2023 1 1 Specialty Diagnoses / Procedures Referred By Contac t Referred To Contact Neurology Diagnoses Altered mental status, unspecified altered mental status type Procedures CONSULT TO NEUROLOGY OFFICE/OUTPATIENT [facility] 60-74 MINUTES Abdulaziz Caldera MD [address] [place] [address] Referral ID Status Reason Start Date Expiration Date Visits Requested Visits Authorized [id number] Authorized PCP Requested Referral 01/01/2022 01/01/2023 1 1 Summary Purpose Additional Source Comments Source Comments (unrecognize d section and content) In the event this informatio n is protected by the Federal Confidentiality of Alcohol and Drug Abuse Patient Records regulations: The Federal rules restrict any use of the information to criminally investigate or prosecute any alcohol or drug abuse patient.[facility]In the event this information is protected by the Federal Confidentiality of Alcohol and Drug Abuse Patient Records regulations: The Federal rules restrict any use of the information to criminally investigate or prosecute any alcohol or drug abuse patient.[facility] HospitalIn the event this information is protected by the Federal Confidentiality of Alcohol and Drug Abuse Patient Records regulations: The Federal rules restrict any use of the information to criminally investigate or prosecute any alcohol or drug abuse patient.[facility] HospitalIn the event this information is protected by the Federal Confidentiality of Alcohol and Drug Abuse Patient Records regulations: The Federal rules restrict any use of the information to criminally investigate or prosecute any alcohol or drug abuse patient.[facility] HospitalIn the event this information is protected by the Federal Confidentiality of Alcohol and Drug Abuse Patient Records regulations: The Federal rules restrict any use of the information to criminally investigate or prosecute any alcohol or drug abuse patient.[facility] HospitalIn the event this information is protected by the Federal Confidentiality of Alcohol and Drug Abuse Patient Records regulations: The Federal rules restrict any use of the information to criminally investigate or prosecute any alcohol or drug abuse patient.[facility] HospitalIn the event this information is protected by the Federal Confidentiality of Alcohol and Drug Abuse Patient Records regulations: The Federal rules restrict any use of the information to criminally investigate or prosecute any alcohol or drug abuse patient.[facility] HospitalIn the event this information is protected by the Federal Confidentiality of Alcohol and Drug Abuse Patient Records regulations: The Federal rules restrict any use of the information to criminally investigate or prosecute any alcohol or drug abuse patient.[facility] HospitalIn the event this information is protected by the Federal Confidentiality of Alcohol and Drug Abuse Patient Records regulations: The Federal rules restrict any use of the information to criminally investigate or prosecute any alcohol or drug abuse patient.[facility] HospitalIn the event this information is protected by the Federal Confidentiality of Alcohol and Drug Abuse Patient Records regulations: The Federal rules restrict any use of the information to criminally investigate or prosecute any alcohol or drug abuse patient.[facility] HospitalIn the event this information is protected by the Federal Confidentiality of Alcohol and Drug Abuse Patient Records regulations: The Federal rules restrict any use of the information to criminally investigate or prosecute any alcohol or drug abuse patient.[facility] HospitalIn the event this information is protected by the Federal Confidentiality of Alcohol and Drug Abuse Patient Records regulations: The Federal rules restrict any use of the information to criminally investigate or prosecute any alcohol or drug abuse patient.[facility] HospitalIn the event this information is protected by the Federal Confidentiality of Alcohol and Drug Abuse Patient Records regulations: The Federal rules restrict any use of the information to criminally investigate or prosecute any alcohol or drug abuse patient.[facility] HospitalIn the event this information is protected by the Federal Confidentiality of Alcohol and Drug Abuse Patient Records regulations: The Federal rules restrict any use of the information to criminally investigate or prosecute any alcohol or drug abuse patient.[facility] HospitalIn the event this information is protected by the Federal Confidentiality of Alcohol and Drug Abuse Patient Records regulations: The Federal rules restrict any use of the information to criminally investigate or prosecute any alcohol or drug abuse patient.[facility] HospitalIn the event this information is protected by the Federal Confidentiality of Alcohol and Drug Abuse Patient Records regulations: The Federal rules restrict any use of the information to criminally investigate or prosecute any alcohol or drug abuse patient.[facility] HospitalIn the event this information is protected by the Federal Confidentiality of Alcohol and Drug Abuse Patient Records regulations: The Federal rules restrict any use of the information to criminally investigate or prosecute any alcohol or drug abuse patient.[facility] HospitalIn the event this information is protected by the Federal Confidentiality of Alcohol and Drug Abuse Patient Records regulations: The Federal rules restrict any use of the information to criminally investigate or prosecute any alcohol or drug abuse patient.[facility] HospitalIn the event this information is protected by the Federal Confidentiality of Alcohol and Drug Abuse Patient Records regulations: The Federal rules restrict any use of the information to criminally investigate or prosecute any alcohol or drug abuse patient.[facility] HospitalIn the event this information is protected by the Federal Confidentiality of Alcohol and Drug Abuse Patient Records regulations: The Federal rules restrict any use of the information to criminally investigate or prosecute any alcohol or drug abuse patient.[facility] HospitalIn the event this information is protected by the Federal Confidentiality of Alcohol and Drug Abuse Patient Records regulations: The Federal rules restrict any use of the information to criminally investigate or prosecute any alcohol or drug abuse patient.[facility] HospitalIn the event this information is protected by the Federal Confidentiality of Alcohol and Drug Abuse Patient Records regulations: The Federal rules restrict any use of the information to criminally investigate or prosecute any alcohol or drug abuse patient.[facility] HospitalIn the event this information is protected by the Federal Confidentiality of Alcohol and Drug Abuse Patient Records regulations: The Federal rules restrict any use of the information to criminally investigate or prosecute any alcohol or drug abuse patient.[facility] HospitalIn the event this information is protected by the Federal Confidentiality of Alcohol and Drug Abuse Patient Records regulations: The Federal rules restrict any use of the information to criminally investigate or prosecute any alcohol or drug abuse patient.[facility] HospitalIn the event this information is protected by the Federal Confidentiality of Alcohol and Drug Abuse Patient Records regulations: The Federal rules restrict any use of the information to criminally investigate or prosecute any alcohol or drug abuse patient.[facility] HospitalIn the event this information is protected by the Federal Confidentiality of Alcohol and Drug Abuse Patient Records regulations: The Federal rules restrict any use of the information to criminally investigate or prosecute any alcohol or drug abuse patient.[facility] HospitalIn the event this information is protected by the Federal Confidentiality of Alcohol and Drug Abuse Patient Records regulations: The Federal rules restrict any use of the information to criminally investigate or prosecute any alcohol or drug abuse patient.[facility] HospitalIn the event this information is protected by the Federal Confidentiality of Alcohol and Drug Abuse Patient Records regulations: The Federal rules restrict any use of the information to criminally investigate or prosecute any alcohol or drug abuse patient.[facility] HospitalIn the event this information is protected by the Federal Confidentiality of Alcohol and Drug Abuse Patient Records regulations: The Federal rules restrict any use of the information to criminally investigate or prosecute any alcohol or drug abuse patient.[facility] HospitalIn the event this information is protected by the Federal Confidentiality of Alcohol and Drug Abuse Patient Records regulations: The Federal rules restrict any use of the information to criminally investigate or prosecute any alcohol or drug abuse patient.[facility] HospitalIn the event this information is protected by the Federal Confidentiality of Alcohol and Drug Abuse Patient Records regulations: The Federal rules restrict any use of the information to criminally investigate or prosecute any alcohol or drug abuse patient.[facility] HospitalIn the event this information is protected by the Federal Confidentiality of Alcohol and Drug Abuse Patient Records regulations: The Federal rules restrict any use of the information to criminally investigate or prosecute any alcohol or drug abuse patient.[facility] HospitalIn the event this information is protected by the Federal Confidentiality of Alcohol and Drug Abuse Patient Records regulations: The Federal rules restrict any use of the information to criminally investigate or prosecute any alcohol or drug abuse patient.[facility] HospitalIn the event this information is protected by the Federal Confidentiality of Alcohol and Drug Abuse Patient Records regulations: The Federal rules restrict any use of the information to criminally investigate or prosecute any alcohol or drug abuse patient.[facility] HospitalIn the event this information is protected by the Federal Confidentiality of Alcohol and Drug Abuse Patient Records regulations: The Federal rules restrict any use of the information to criminally investigate or prosecute any alcohol or drug abuse patient.[facility] HospitalIn the event this information is protected by the Federal Confidentiality of Alcohol and Drug Abuse Patient Records regulations: The Federal rules restrict any use of the information to criminally investigate or prosecute any alcohol or drug abuse patient.[facility] HospitalIn the event this information is protected by the Federal Confidentiality of Alcohol and Drug Abuse Patient Records regulations: The Federal rules restrict any use of the information to criminally investigate or prosecute any alcohol or drug abuse patient.[facility] HospitalIn the event this information is protected by the Federal Confidentiality of Alcohol and Drug Abuse Patient Records regulations: The Federal rules restrict any use of the information to criminally investigate or prosecute any alcohol or drug abuse patient.[facility] HospitalIn the event this information is protected by the Federal Confidentiality of Alcohol and Drug Abuse Patient Records regulations: The Federal rules restrict any use of the information to criminally investigate or prosecute any alcohol or drug abuse patient.[facility] HospitalIn the event this information is protected by the Federal Confidentiality of Alcohol and Drug Abuse Patient Records regulations: The Federal rules restrict any use of the information to criminally investigate or prosecute any alcohol or drug abuse patient.[facility] HospitalIn the event this information is protected by the Federal Confidentiality of Alcohol and Drug Abuse Patient Records regulations: The Federal rules restrict any use of the information to criminally investigate or prosecute any alcohol or drug abuse patient.[facility] HospitalIn the event this information is protected by the Federal Confidentiality of Alcohol and Drug Abuse Patient Records regulations: The Federal rules restrict any use of the information to criminally investigate or prosecute any alcohol or drug abuse patient.[facility] HospitalIn the event this information is protected by the Federal Confidentiality of Alcohol and Drug Abuse Patient Records regulations: The Federal rules restrict any use of the information to criminally investigate or prosecute any alcohol or drug abuse patient.[facility] HospitalIn the event this information is protected by the Federal Confidentiality of Alcohol and Drug Abuse Patient Records regulations: The Federal rules restrict any use of the information to criminally investigate or prosecute any alcohol or drug abuse patient.[facility] HospitalIn the event this information is protected by the Federal Confidentiality of Alcohol and Drug Abuse Patient Records regulations: The Federal rules restrict any use of the information to criminally investigate or prosecute any alcohol or drug abuse patient.[facility] HospitalIn the event this information is protected by the Federal Confidentiality of Alcohol and Drug Abuse Patient Records regulations: The Federal rules restrict any use of the information to criminally investigate or prosecute any alcohol or drug abuse patient.[facility] HospitalIn the event this information is protected by the Federal Confidentiality of Alcohol and Drug Abuse Patient Records regulations: The Federal rules restrict any use of the information to criminally investigate or prosecute any alcohol or drug abuse patient.[facility] HospitalIn the event this information is protected by the Federal Confidentiality of Alcohol and Drug Abuse Patient Records regulations: The Federal rules restrict any use of the information to criminally investigate or prosecute any alcohol or drug abuse patient.[facility] HospitalIn the event this information is protected by the Federal Confidentiality of Alcohol and Drug Abuse Patient Records regulations: The Federal rules restrict any use of the information to criminally investigate or prosecute any alcohol or drug abuse patient.[facility] HospitalIn the event this information is protected by the Federal Confidentiality of Alcohol and Drug Abuse Patient Records regulations: The Federal rules restrict any use of the information to criminally investigate or prosecute any alcohol or drug abuse patient.[facility] HospitalIn the event this information is protected by the Federal Confidentiality of Alcohol and Drug Abuse Patient Records regulations: The Federal rules restrict any use of the information to criminally investigate or prosecute any alcohol or drug abuse patient.[facility] HospitalIn the event this information is protected by the Federal Confidentiality of Alcohol and Drug Abuse Patient Records regulations: The Federal rules restrict any use of the information to criminally investigate or prosecute any alcohol or drug abuse patient.[facility] HospitalIn the event this information is protected by the Federal Confidentiality of Alcohol and Drug Abuse Patient Records regulations: The Federal rules restrict any use of the information to criminally investigate or prosecute any alcohol or drug abuse patient.[facility] HospitalIn the event this information is protected by the Federal Confidentiality of Alcohol and Drug Abuse Patient Records regulations: The Federal rules restrict any use of the information to criminally investigate or prosecute any alcohol or drug abuse patient.[facility] HospitalIn the event this information is protected by the Federal Confidentiality of Alcohol and Drug Abuse Patient Records regulations: The Federal rules restrict any use of the information to criminally investigate or prosecute any alcohol or drug abuse patient.[facility] HospitalIn the event this information is protected by the Federal Confidentiality of Alcohol and Drug Abuse Patient Records regulations: The Federal rules restrict any use of the information to criminally investigate or prosecute any alcohol or drug abuse patient.[facility] HospitalIn the event this information is protected by the Federal Confidentiality of Alcohol and Drug Abuse Patient Records regulations: The Federal rules restrict any use of the information to criminally investigate or prosecute any alcohol or drug abuse patient.[facility] HospitalIn the event this information is protected by the Federal Confidentiality of Alcohol and Drug Abuse Patient Records regulations: The Federal rules restrict any use of the information to criminally investigate or prosecute any alcohol or drug abuse patient.[facility] HospitalIn the event this information is protected by the Federal Confidentiality of Alcohol and Drug Abuse Patient Records regulations: The Federal rules restrict any use of the information to criminally investigate or prosecute any alcohol or drug abuse patient.[facility] HospitalIn the event this information is protected by the Federal Confidentiality of Alcohol and Drug Abuse Patient Records regulations: The Federal rules restrict any use of the information to criminally investigate or prosecute any alcohol or drug abuse patient.[facility] HospitalIn the event this information is protected by the Federal Confidentiality of Alcohol and Drug Abuse Patient Records regulations: The Federal rules restrict any use of the information to criminally investigate or prosecute any alcohol or drug abuse patient.[facility] HospitalIn the event this information is protected by the Federal Confidentiality of Alcohol and Drug Abuse Patient Records regulations: The Federal rules restrict any use of the information to criminally investigate or prosecute any alcohol or drug abuse patient.[facility] HospitalIn the event this information is protected by the Federal Confidentiality of Alcohol and Drug Abuse Patient Records regulations: The Federal rules restrict any use of the information to criminally investigate or prosecute any alcohol or drug abuse patient.[facility] HospitalIn the event this information is protected by the Federal Confidentiality of Alcohol and Drug Abuse Patient Records regulations: The Federal rules restrict any use of the information to criminally investigate or prosecute any alcohol or drug abuse patient.[facility] HospitalIn the event this information is protected by the Federal Confidentiality of Alcohol and Drug Abuse Patient Records regulations: The Federal rules restrict any use of the information to criminally investigate or prosecute any alcohol or drug abuse patient.[facility] HospitalIn the event this information is protected by the Federal Confidentiality of Alcohol and Drug Abuse Patient Records regulations: The Federal rules restrict any use of the information to criminally investigate or prosecute any alcohol or drug abuse patient.[facility] HospitalIn the event this information is protected by the Federal Confidentiality of Alcohol and Drug Abuse Patient Records regulations: The Federal rules restrict any use of the information to criminally investigate or prosecute any alcohol or drug abuse patient.[facility] HospitalIn the event this information is protected by the Federal Confidentiality of Alcohol and Drug Abuse Patient Records regulations: The Federal rules restrict any use of the information to criminally investigate or prosecute any alcohol or drug abuse patient.[facility] HospitalIn the event this information is protected by the Federal Confidentiality of Alcohol and Drug Abuse Patient Records regulations: The Federal rules restrict any use of the information to criminally investigate or prosecute any alcohol or drug abuse patient.[facility] HospitalIn the event this information is protected by the Federal Confidentiality of Alcohol and Drug Abuse Patient Records regulations: The Federal rules restrict any use of the information to criminally investigate or prosecute any alcohol or drug abuse patient.[facility] HospitalIn the event this information is protected by the Federal Confidentiality of Alcohol and Drug Abuse Patient Records regulations: The Federal rules restrict any use of the information to criminally investigate or prosecute any alcohol or drug abuse patient.[facility] HospitalIn the event this information is protected by the Federal Confidentiality of Alcohol and Drug Abuse Patient Records regulations: The Federal rules restrict any use of the information to criminally investigate or prosecute any alcohol or drug abuse patient.[facility] HospitalIn the event this information is protected by the Federal Confidentiality of Alcohol and Drug Abuse Patient Records regulations: The Federal rules restrict any use of the information to criminally investigate or prosecute any alcohol or drug abuse patient.[facility] HospitalIn the event this information is protected by the Federal Confidentiality of Alcohol and Drug Abuse Patient Records regulations: The Federal rules restrict any use of the information to criminally investigate or prosecute any alcohol or drug abuse patient.[facility] HospitalIn the event this information is protected by the Federal Confidentiality of Alcohol and Drug Abuse Patient Records regulations: The Federal rules restrict any use of the information to criminally investigate or prosecute any alcohol or drug abuse patient.[facility] HospitalIn the event this information is protected by the Federal Confidentiality of Alcohol and Drug Abuse Patient Records regulations: The Federal rules restrict any use of the information to criminally investigate or prosecute any alcohol or drug abuse patient.[facility] HospitalIn the event this information is protected by the Federal Confidentiality of Alcohol and Drug Abuse Patient Records regulations: The Federal rules restrict any use of the information to criminally investigate or prosecute any alcohol or drug abuse patient.[facility] HospitalIn the event this information is protected by the Federal Confidentiality of Alcohol and Drug Abuse Patient Records regulations: The Federal rules restrict any use of the information to criminally investigate or prosecute any alcohol or drug abuse patient.[facility] HospitalIn the event this information is protected by the Federal Confidentiality of Alcohol and Drug Abuse Patient Records regulations: The Federal rules restrict any use of the information to criminally investigate or prosecute any alcohol or drug abuse patient.[facility] Reason for Visit (unrecogniz ed section and content) Reason Comments PT Discharge Specialty Diagnoses / Procedures Referred By Contac t Referred To Contact [facility] Diagnoses Abnormality of gait due to impairment of balance Procedures CONSULT TO PHYSICAL THERAPY PHYSICAL THERAPY EVALUATION HIGH COMPLEX 45 MINS Jojo Kaur MD [address] [place] [address] [facility] [place] [address] [place] [address] Referral ID Status Reason Start Date Expiration Date Visits Requested Visits Authorized [id number] Authorized PCP Requested Referral Auto-Generate d Referral [...] 6 mo Reason Comments Hospital Follow Up [facility] discharged Reason Comments Results Reason Comments Consult altered mental statu s Specialty Diagnoses / Procedures Referred By Contac t Referred To Contact Neurology Diagnoses Altered mental status, unspecified altered mental status type Procedures CONSULT TO NEUROLOGY OFFICE/OUTPATIENT NEW NEW [facility] MDM 60-74 MINUTES Abdulaziz Caldera MD [address] [place] [address] Referral ID Status Reason Start Date Expiration Date V isits Requested Visits Authorized [id number] Closed PCP Requested Referral 01/01/2022 01/01/2023 1 [...] Nursing Plan of Care Update Reason Comments [facility] PT POC Reason Comments OT plan of care Reason Onset Date Comments Refill Request 07/25/2022 Reason Comments Home Health-Nursing Update Reason Onset Date Comments Anticoagulation 07/31/2022 Specialty Diagnoses / Procedures Referred By Contcarlos t Referred To Contact Ent - Otolaryngology Diagnoses Chronic frontal sinusitis Procedures CONSULT TO ENT OFFICE/OUTPATIENT NEW HIGH MDM 60-74 MINUTES Abdulaziz Caldera MD [address] [place] [address] Referral ID Status Reason Start Date Expiration Date V isits Requested Visits Authorized [id number] Closed PCP Requested Referral 07/12/2022 07/12/2023 1 [...] Care Teams (unrecognized sec tion and content) 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 Specialty Start Date End Date Abdulaziz Caldera MD [address] [place], [place] [id number] PCP - General Family Practice 11/23/20 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 Specialty Start Date End Date bAdulaziz Caldera MD [address] [place], [place] [id number] PCP - General Family Practice 11/23/20 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 Specialty Start Date End Date Abdulaziz Caldera MD [address] [place], [place] [id number] PCP - General Family Practice 11/23/20 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 Specialty Start Date End Date Abdulaziz Caldera MD [address] [place] [address] PCP - General Family Practice 11/23/20 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 Specialty Start Date End Date Abdulaziz Caldera MD [address] [place] [address] PCP - General Family Practice 11/23/20 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 Specialty Start Date End Date Abdulaziz Caldera MD [address] [place] [address] PCP - General Family Practice 11/23/20 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 Specialty Start Date End Date Abdulaziz Caldera MD [address] [place] [address] PCP - General Family Practice 11/23/20 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 Specialty Start Date End Date Abdulaziz Caldera MD [address] [place] [address] PCP - General Family Practice 11/23/20 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 Specialty Start Date End Date Abdulaziz Caldera MD [address] [place] [address] PCP - General Family Practice 11/23/20 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 Specialty Start Date End Date Abdulaziz Caldera MD [address] [place] [address] PCP - General Family Practice 11/23/20 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 Specialty Start Date End Date Abdulaziz Caldera MD [address] [place] [address] PCP - General Family Practice 11/23/20 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 Specialty Start Date End Date Abdulaziz Caldera MD [address] [place] [address] PCP - General Family Practice 11/23/20 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 Specialty Start Date End Date Abdulaziz Caldera MD [address] [place] [address] PCP - General Family Practice 11/23/20 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 Specialty Start Date End Date Abdulaziz Caldera MD [address] [place] [address] PCP - General Family Practice 11/23/20 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 Specialty Start Date End Date Abdulaziz Caldera MD [address] [place] [address], [place] [address] PCP - General Family Practice 11/23/20 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 Specialty Start Date End Date Abdulaziz Caldera MD [address] [place] [address], [place] [address] PCP - General Family Practice 11/23/20 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 Specialty Start Date End Date Abdulaziz Caldera MD [facility] [place] [address] PCP - General Family Practice 11/23/20 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 Specialty Start Date End Date Abdulaziz Caldera MD [facility] [place] [address] PCP - General Family Practice 11/23/20 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 Specialty Start Date End Date Abdulaziz Caldera MD [facility] [place] [address] PCP - General Family Practice 11/23/20 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 Specialty Start Date End Date Abdulaziz Caldera MD [facility] [place] [address] PCP - General Family Practice 11/23/20 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 Specialty Start Date End Date Abdulaziz Caldera MD [address] [place] [address] PCP - General Family Practice 11/23/20 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 Specialty Start Date End Date Abdulaziz Caldera MD [address] [place] [address] PCP - General Family Practice 11/23/20 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 Specialty Start Date End Date Abdulaziz Caldera MD [address] [place] [address] PCP - General Family Medicine 11/23/20 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 Specialty Start Date End Date Abdulaziz Caldera MD [address] [place] [address] PCP - General Family Medicine 11/23/20 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 Specialty Start Date End Date Abdulaziz Caldera MD [address] [place] [address] PCP - General Family Medicine 11/23/20 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 Specialty Start Date End Date Abdulaziz Caldera MD [address] [place] [address] PCP - General Family Medicine 11/23/20 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 Specialty Start Date End Date Abdulaziz Caldera MD [address] [place] [address] PCP - General Family Medicine 11/23/20 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 Specialty Start Date End Date Abdulaziz Caldera MD [address] [place] [address] PCP - General Family Medicine 11/23/20 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 Specialty Start Date End Date Abdulaziz Caldera MD [address] [place] [address] PCP - General Family Medicine 11/23/20 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 Specialty Start Date End Date Abdulaziz Caldera MD [address] [place] [address] PCP - General Family Medicine 11/23/20 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 Specialty Start Date End Date Abdulaziz Caldera MD [address] [place] [address] PCP - General Family Medicine 11/23/20 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 Specialty Start Date End Date Abdulaziz Caldera MD [address] [place] [address] PCP - General Family Medicine 11/23/20 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 Specialty Start Date End Date Abdulaziz Caldera MD [address] [place] [address] PCP - General Family Medicine 11/23/20 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 Specialty Start Date End Date Abdulaziz Caldera MD [address] [place] [address] PCP - General Family Medicine 11/23/20 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 Specialty Start Date End Date Abdulaziz Caldera MD [address] [place] [address] PCP - General Family Medicine 11/23/20 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 Specialty Start Date End Date Abdulaziz Caldera MD [address] [place] [address] PCP - General Family Medicine 11/23/20 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 Specialty Start Date End Date Abdulaziz Caldera MD [address] [place] [address] PCP - General Family Medicine 11/23/20 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 Specialty Start Date End Date Abdulaziz Caldera MD [address] [place] [address] PCP - General Family Medicine 11/23/20 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 Specialty Start Date End Date Abdulaziz Caldera MD [address] [place] [address] PCP - General Family Medicine 11/23/20 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 Specialty Start Date End Date Abdulaziz Caldera MD [address] [place] [address] PCP - General Family Medicine 11/23/20 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 Specialty Start Date End Date Abdulaziz Caldera MD [address] [place] [address] PCP - General Family Medicine 11/23/20 Team [...] MD Admit Provider, Attending Provi skip Active 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 Specialty Start Date End Date Abdulaziz Caldera MD [address] [place] [address] PCP - General Family Medicine 11/23/20 Team [...] Riggs MD Other Provider Active Dr. Liu Friend , DO Attending Provider Active Team Status: [...] MD Admit Provider, Attending Prov ider Active 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 Specialty Start Date End Date Abdulaziz Caldera MD [address] [place] [address] PCP - General Family Medicine 11/23/20 Team [...] Dr. Liu Hackett , Attending Provider Active Team Status: Active Member [...] Dr. Liu Hackett , Attending Provider Active Team Status: Active Member [...] Care Provider Acti ve Dr. Geremias Carey , Emergency Provider Active Team Status: Active Member Role Status Dates Dr. Luis Caldera MD Primary Care Provider Acti ve Dr. Dandy Sauer MD Emergency Provider Active Dr. Gabriel Giraldo DO Admit Provider, Attending Pro vider Active Team Status: Active Member Role Status Dates Dr. Luis Caldrea MD Primary Care Provider Acti ve Dr. [...] Provider, Ref erring Provider Active Ann Rodríguez [employer], [employer]IAL WORK JOB [employer]ITLES-C Attending Provider Active Team Status: Active Member [...] section and content) DATE CREATED AUTHOR 01/02/2022 [facility] DATE CREATED AUTHOR AUTHOR'S ORGANIZ ATION 02/04/2022 [facility] DATE CREATED AUTHOR AUTHOR'S ORGANIZ ATION 04/19/2022 [facility] DATE CREATED AUTHOR AUTHOR'S ORGANIZ ATION 11/07/2024 [facility] DATE CREATED AUTHOR AUTHOR'S ORGANIZ ATION 01/08/2025 [facility] FOR RECORDS PERTAINING TO PATIENTS WHO [...] BE BASED ON THE PRIMARY CLINICAL RECORDS. [facility]. provides no warranty or guarantee of the accuracy or completeness of information in this document.
[2025-02-03 00:17] LABS: Reflex Lactate? Y
--- OUTSIDE RECORDS SUMMARY | 2025-02-03 00:21 | XMS RPT_ITS | CCD ---
Author Organization [facility] Care Team Providers Care Physical Chemistry Professor Name Role Phone Abdulaziz Caldera MD Primary Care Provider PHYSICIAN, NOT RECORDED Primary Care Physician U Dr. Luis Bajwa Primary Care Provider [phone] Dr. Amada Queen Admit Provider Dr. Amada [...] Dr. Luis Caldera Primary Care Provider [phone] Dr. Karen Aly Admit Provider Jermain, Dr. [...] Dr. Luis Caldera Primary Care Provider [phone] Dr. Karen Aly Admit Provider Dr. Karen Aly Other Provider Dr. Karen Aly Attending Provider Dr. Gabriel Giraldo Other Provider Enzo, Dr. Rios Attending Provider Dr. Luis Caldera Primary Care Provider [phone] Dr. Dandy Sauer Emergency Provider Earnest, Dr. [...] Dr. Luis Caldera Primary Care Provider [phone] Dr. Syed Allen Emergency Provider Dr. Karen Aly Admit Provider Dr. Karen Aly Other Provider Dr. Yisel Rendon Attending Provider Dr. Yisel Rendon Other Provider Dr. Olga Lidia Rasheed Other Provider Dr. Luis Caldera Primary Care Provider Dr. Luis Caldera Referring Provider Debi Wetzel Attending Provider Unavailable Marcos PHYSICAL GEOGRAPHER, GURPREETC Ann Attending Provider Dr. Luis Caldera Primary Care Provider Dr. Luis Caldera Referring Provider Dr. Olga Lidia Rasheed Attending Provider Verenice COLBERT, Dr. Smith Primary Care Provider Rosita COLBERT, Walter Attending Provider Unavailable Rosita COLBERT, Walter Referring Provider Unavailable Verenice COLBERT, Dr. Smith Referring Provider Wili COLBERT, Dr. Duggan Attending Provider Deperro [...] (20 sources) pantoprazole Drug Allergy 09-24-2019 Diarrhea [facility] (20 sources) Propofol Drug Allergy 12-06-2021 Other [facility] Comment on above: GETS AGGRESSIVE (1 source) Propofol Drug Allergy 10-12-2024 [facility] Repository Medications Current Medications Medication Drug [...] on above: TAKE [address] [facility] ONCE DAILY. FOR CHOLESTEROL. bisacodyl 10 [...] Comment on above: Take 1 capsule by [facility] one time a week. docusate sodium 50 mg / sennosides, fpc 8.6 mg oral tablet (12 sources) Start: 01-26-2023 Start: 01-26-2023 take 2 tablets by [facility] twice daily Sennosides-Docusate Sodium (Stool Softener-Stimulant [...] hydrochloride 10 mg oral tablet (20 sources) S-uxtwga-Q-aspartate Receptor Antagonist Start: 02-13-2023 take 1 tablet [...] Comment on above: Take 1 capsule by [facility] daily at bedtime. 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, [address] Hematocrit (Bld) [Volume fraction] 37.9 % Low 40-54 [facility] Comment on above: Order Comment: 215.2 Performed By: #### L 9200.0000 #### [facility] [address] [place], [address] Hemoglobin (Bld) [Mass/Vol] 12.4 g/dL Low 13.0-16. 5 [facility] Comment on above: Order Comment: 215.2 Performed By: #### L 9200.0000 #### [facility] [address] [place], [address] MCH (RBC) [Entitic mass] 28.0 pg Normal 27.0-32.0 [facility] Comment on above: Order Comment: 215.2 Performed By: #### L 9200.0000 #### [facility] [address] [place], [address] MCHC (RBC) [Mass/Vol] 32.7 g/dL Normal 32-36 [facility] Comment on above: Order Comment: 215.2 Performed By: #### L 9200.0000 #### [facility] [address] [place], [address] MCV (RBC) [Entitic vol] 85.6 fL Normal 80-94 [facility] Comment on above: Order Comment: 215.2 Performed By: #### L 9200.0000 #### [facility] [address] [place], [address] Platelet mean volume (Bld) [Entitic vol] 9.5 fL Normal 6.2-12.0 [facility] Comment on above: Order Comment: 215.2 Performed By: #### L 9200.0000 #### [facility] [address] [place], [address] Platelets (Bld) [#/Vol] 214 10*3/uL Normal 150-450 [facility] Comment on above: Order Comment: 215.2 Performed By: #### L 9200.0000 #### [facility] [address] [place], [address] RBC (Bld) [#/Vol] 4.43 10*6/uL Low 4.6-6.2 [facility] Comment on above: Order Comment: 215.2 Performed By: #### L 9200.0000 #### [facility] [address] [place], [address] RDW SD 41.9 fl Normal 35.1-43.9 [facility] Comment on above: Order Comment: 215.2 Performed By: #### L 9200.0000 #### [facility] [address] [place], [address] WBC (Bld) [#/Vol] 9.4 10*3/uL Normal 4.4-11.0 [facility] Comment on above: Order Comment: 215.2 Performed By: #### L 9200.0000 #### [facility] [address] [place], [address] Comprehensive Metabolic Prof [facility] 12-22-2024 Albumin [Mass/Vol] 3.6 g/dL Normal 3.4-4.8 [facility] Comment on above: Order Comment: 215.2 Performed By: #### L 9200.0000 #### [facility] [address] [place], [address] Albumin/Globulin [Mass ratio] 1.7 {ratio} Normal 0.9-2.4 [facility] Comment on above: Order Comment: 215.2 Performed By: #### L 9200.0000 #### [facility] [address] [place], [address] ALK PHOS 104 U/L Normal 40-129 [facility] Comment on above: Order Comment: 215.2 Performed By: #### L 9200.0000 #### [facility] [address] [place], [address] ALT [Catalytic activity/Vol] 13 U/L Normal <=46 [facility] Comment on above: Order Comment: 215.2 Performed By: #### L 9200.0000 #### [facility] [address] [place], [address] AST [Catalytic activity/Vol] 14 U/L Normal <=37 [facility] Comment on above: Order Comment: 215.2 Performed By: #### L 9200.0000 #### [facility] [address] [place], [address] Bilirubin [Mass/Vol] 0.43 mg/dL Normal 0.00-1.30 [facility] Comment on above: Order Comment: 215.2 Performed By: #### L 9200.0000 #### [facility] [address] [place], [address] BUN/CRE 19.8 RATIO Normal 10-20 [facility] Comment on above: Order Comment: 215.2 Performed By: #### L 9200.0000 #### [facility] [address] [place], [address] Calcium [Mass/Vol] 9.5 mg/dL Normal 7.6-11.0 [facility] Comment on above: Order Comment: 215.2 Performed By: #### L 9200.0000 #### [facility] [address] [place], [address] Chloride [Moles/Vol] 103 mmol/L Normal 98-108 [facility] Comment on above: Order Comment: 215.2 Performed By: #### L 9200.0000 #### [facility] [address] [place], [address] CO2 [Moles/Vol] 26.7 mmol/L Normal 21.0-32.0 [facility] Comment on above: Order Comment: 215.2 Performed By: #### L 9200.0000 #### [facility] [address] [place], [address] Creatinine [Mass/Vol] 1.04 mg/dL Normal 0.70-1.20 [facility] Comment on above: Order Comment: 215.2 Performed By: #### L [id number] #### [facility] [address] [place], [address] GAP 10 Normal 5-15 [facility] Comment on above: Order Comment: 215.2 Performed By: #### L 9200.0000 #### [facility] [address] [place], [address] GFR/1.73 sq M.predicted among non-blacks MDRD (S/P/Bld) [Vol rate/Area] 74 mL/min/{1.73_m2} Normal >60 [facility] Comment on above: Order Comment: 215.2 Result Comment: mL/m in/1.73m2 CKD-EPI Creatinine Equation (2020) Performed By: #### L 9200.0000 #### [facility] [address] [place], [address] Globulin (S) [Mass/Vol] 2.2 g/dL Normal 2.2-4.2 [facility] Comment on above: Order Comment: 215.2 Performed By: #### L 9200.0000 #### [facility] [address] [place], [address] Glucose [Mass/Vol] 131 mg/dL High 70-99 [facility] Comment on above: Order Comment: 215.2 Performed By: #### L [id number] #### [facility] [address] [place], [address] Potassium [Moles/Vol] 4.2 mmol/L Normal 3.3-5.1 [facility] Comment on above: Order Comment: 215.2 Performed By: #### L [id number] #### [facility] [address] [place], [address] Sodium [Moles/Vol] 141 mmol/L Normal 133-145 [facility] Comment on above: Order Comment: 215.2 Performed By: #### L [id number] #### [facility] [address] [place], [address] T PROT 5.8 g/dL Low 5.9-8.4 [facility] Comment on above: Order Comment: 215.2 Performed By: #### L [id number] #### [facility] [address] [place], [address] Urea nitrogen [Mass/Vol] 21 mg/dL High 4-19 [facility] Comment on above: Order Comment: 215.2 Performed By: #### L [id number] #### [facility] [address] [place], [address] Hemoglobin A1con 12-22-2024 HbA1c (Bld) [Mass fraction] 7.0 % High <=5.6 [facility] Comment on above: Order Comment: 215.2 Result Comment: Norm al < 5.7 % Prediabetic 5.7 - 6.4 % Diabetic >or= 6.5 % Please note range changes. Performed By: #### L [id number] #### [facility] [address] [place], [place], [address] Vitamin D,25 Hydroxyon 12-16 Vitamin D 25-OH 31.8 ng/mL Normal 30-100 [facility] Comment on above: Order Comment: 215.2 Result Comment: Laure min D Status Deficiency: <20 ng/mL (50nmol/L) Insufficiency: 20-30 ng/mL (50-75 nmol/L) Sufficiency: 30-100 ng/mL (75-250 nmol/L) Toxicity: >100 ng/mL (>250 nmol/L) Performed By: #### L 9200.0000 #### [facility] [address] [place], [place], [address] Urine Cultureon 11-25-2024 [facility] Culture exhibits no growth. Normal [facility] Comment on above: Performed By: #### L 500.4050, L501.9985, L100.0500 #### [facility] [address] [place], [place], [address] CBC-Complete Blood Cnt No Di ffon 11-24-2024 Erythrocyte distribution width (RBC) [Ratio] 13.4 % Normal 11.6-14.6 [facility] Comment on above: Order Comment: 215.2 Performed By: #### L [id number] #### [facility] [address] [place], [place], [address] Hematocrit (Bld) [Volume fraction] 38.0 % Low 40-54 [facility] Comment on above: Order Comment: 215.2 Performed By: #### L 9200.0000 #### [facility] [address] [place], [address] Hemoglobin (Bld) [Mass/Vol] 12.1 g/dL Low 13.0-16. 5 [facility] Comment on above: Order Comment: 215.2 Performed By: #### L [id number] #### [facility] [address] [place], [address] MCH (RBC) [Entitic mass] 27.6 pg Normal 27.0-32.0 [facility] Comment on above: Order Comment: 215.2 Performed By: #### L [id number] #### [facility] [address] [place], [address] MCHC (RBC) [Mass/Vol] 31.8 g/dL Low 32-36 [facility] Comment on above: Order Comment: 215.2 Performed By: #### L [id number] #### [facility] [address] [place], [address] MCV (RBC) [Entitic vol] 86.6 fL Normal 80-94 [facility] Comment on above: Order Comment: 215.2 Performed By: #### L [id number] #### [facility] [address] [place], [address] Platelet mean volume (Bld) [Entitic vol] 9.4 fL Normal 6.2-12.0 [facility] Comment on above: Order Comment: 215.2 Performed By: #### L [id number] #### [facility] [address] [place], [address] Platelets (Bld) [#/Vol] 200 10*3/uL Normal 150-450 [facility] Comment on above: Order Comment: 215.2 Performed By: #### L [id number] #### [facility] [address] [place], [address] RBC (Bld) [#/Vol] 4.39 10*6/uL Low 4.6-6.2 [facility] Comment on above: Order Comment: 215.2 Performed By: #### L [id number] #### [facility] [address] [place], [address] RDW SD 41.4 fl Normal 35.1-43.9 [facility] Comment on above: Order Comment: 215.2 Performed By: #### L [id number] #### [facility] [address] [place], [address] WBC (Bld) [#/Vol] 8.9 10*3/uL Normal 4.4-11.0 [facility] Comment on above: Order Comment: 215.2 Performed By: #### L [id number] #### [facility] [address] [place], [address] Comprehensive Metabolic Prof nhon 11-24-2024 Albumin [Mass/Vol] 3.3 g/dL Low 3.4-4.8 [facility] Comment on above: Order Comment: 215.2 Performed By: #### L 500.4050, L501.9985, L100.0500 #### [facility] [address] [place], [address] Albumin/Globulin [Mass ratio] 1.6 {ratio} Normal 0.9-2.4 [facility] Comment on above: Order Comment: 215.2 Performed By: #### L 500.4050, L501.9985, L100.0500 #### [facility] [address] [place], [address] ALK PHOS 101 U/L Normal 40-129 [facility] Comment on above: Order Comment: 215.2 Performed By: #### L 500.4050, L501.9985, L100.0500 #### [facility] [address] [place], [address] ALT [Catalytic activity/Vol] 14 U/L Normal <=46 [facility] Comment on above: Order Comment: 215.2 Performed By: #### L 500.4050, L501.9985, L100.0500 #### [facility] [address] [place], [address] AST [Catalytic activity/Vol] 16 U/L Normal <=37 [facility] Comment on above: Order Comment: 215.2 Performed By: #### L 500.4050, L501.9985, L100.0500 #### [facility] [address] [place], [address] Bilirubin [Mass/Vol] 0.34 mg/dL Normal 0.00-1.30 [facility] Comment on above: Order Comment: 215.2 Performed By: #### L 500.4050, L501.9985, L100.0500 #### [facility] [address] [place], [address] BUN/CRE 19.5 RATIO Normal 10-20 [facility] Comment on above: Order Comment: 215.2 Performed By: #### L 500.4050, L501.9985, L100.0500 #### [facility] [address] [place], [address] Calcium [Mass/Vol] 8.9 mg/dL Normal 7.6-11.0 [facility] Comment on above: Order Comment: 215.2 Performed By: #### L 500.4050, L501.9985, L100.0500 #### [facility] [address] [place], [address] Chloride [Moles/Vol] 105 mmol/L Normal 98-108 [facility] Comment on above: Order Comment: 215.2 Performed By: #### L 500.4050, L501.9985, L100.0500 #### [facility] [address] [place], [address] CO2 [Moles/Vol] 21.7 mmol/L Normal 21.0-32.0 [facility] Comment on above: Order Comment: 215.2 Performed By: #### L 500.4050, L501.9985, L100.0500 #### [facility] [address] [place], [address] Creatinine [Mass/Vol] 1.15 mg/dL Normal 0.70-1.20 [facility] Comment on above: Order Comment: 215.2 Performed By: #### L 500.4050, L501.9985, L100.0500 #### [facility] [address] [place], [address] GAP 14 Normal 5-15 [facility] Comment on above: Order Comment: 215.2 Performed By: #### L 500.4050, L501.9985, L100.0500 #### [facility] [address] [place], [address] GFR/1.73 sq M.predicted among non-blacks MDRD (S/P/Bld) [Vol rate/Area] 66 mL/min/{1.73_m2} Normal >60 [facility] Comment on above: Order Comment: 215.2 Result Comment: mL/m in/1.73m2 CKD-EPI Creatinine Equation (2020) Performed By: #### L 500.4050, L501.9985, L100.0500 #### [facility] [address] [place], [address] Globulin (S) [Mass/Vol] 2.0 g/dL Low 2.2-4.2 [facility] Comment on above: Order Comment: 215.2 Performed By: #### L 500.4050, L501.9985, L100.0500 #### [facility] [address] [place], [address] Glucose [Mass/Vol] 139 mg/dL High 70-99 [facility] Comment on above: Order Comment: 215.2 Performed By: #### L 500.4050, L501.9985, L100.0500 #### [facility] [address] [place], [address] Potassium [Moles/Vol] 4.2 mmol/L Normal 3.3-5.1 [facility] Comment on above: Order Comment: 215.2 Performed By: #### L 500.4050, L501.9985, L100.0500 #### [facility] [address] [place], [address] Sodium [Moles/Vol] 141 mmol/L Normal 133-145 [facility] Comment on above: Order Comment: 215.2 Performed By: #### L 500.4050, L501.9985, L100.0500 #### [facility] [address] [place], [address] T PROT 5.3 g/dL Low 5.9-8.4 [facility] Comment on above: Order Comment: 215.2 Performed By: #### L 500.4050, L501.9985, L100.0500 #### [facility] [address] [place], [address] Urea nitrogen [Mass/Vol] 22 mg/dL High 4-19 [facility] Comment on above: Order Comment: 215.2 Performed By: #### L 500.4050, L501.9985, L100.0500 #### [facility] [address] [place], [address] Urinalysis, Completeon 11-24 WBC 0-5 SEEN Normal 0-5 [facility] Comment on above: Order Comment: LEILA TER SPECIMEN Performed By: #### L 9200.0000 #### [facility] [address] [place], [address] BACTERIA 0 SEEN Normal None Seen [facility] Comment on above: Order Comment: LEILA TER SPECIMEN Performed By: #### L 9200.0000 #### [facility] [address] [place], [address] EPI,SQUAMOUS 0 SEEN Normal 0-5 [facility] Comment on above: Order Comment: LEILA TER SPECIMEN Performed By: #### L 9200.0000 #### [facility] [address] [place], [address] Mucus Ql (Urine sed) 0 SEEN Normal [facility] Comment on above: Order Comment: LEILA TER SPECIMEN Performed By: #### L 9200.0000 #### [facility] [address] [place], [address] RBC 0 SEEN Normal 0-5 [facility] Comment on above: Order Comment: LEILA TER SPECIMEN Performed By: #### L 9200.0000 #### [facility] [address] [place], [place], [address] CNPNon 11-06-2024 [facility] Telephone (4CQ) RICHARD ROY ([id number]) 1945 M Date Time Provider Department 11/06/24 ABDULAZIZ CALDERA 4CQ During your visit today, we recorded the following information about you: Ann Raymond 11/06/2024 10:55 AM Signed Spoke with spouse as patient is over due for visit with PCP , stated patient is at [facility] in [place]. We did not remove PCP. Abdulaziz Caldera [...] time a week. - blood sugar diagnostic (BABYBOOM.ruTOUCH ULTRA TEST) test strip Test blood sugar(s) [...] (HCC) [I48.0] 12/03/2022 Encounter Status:Closed by AMADA [facility] on 11/06/24 Normal [facility] Visit Reporton Cardiology Visit Report [facility] [address] [place], [place] [address] OFFICE VISIT Date of Service: 10/12/24 MR#: [id number] Acct: [id number] Name: RICHARD ROY Rep #: [id number] : 1945 Provider: Dr. 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 Normal [facility] Calculated very low density lipoprotein (VLDL) cholesterol measurementOrdered By: Walter Becker on 10-05-2024 VLDL Cholesterol 41 mg/dL High 5-40 [facility] LDL calc ser/plasOrdered By: Walter Becker on 10-05-2024 LDL Cholesterol, Calculated 31 mg/dL [facility] Comment on above: Laynjmtpbi=739-822 m g/dL & Higher Cixd=098 mg/dL or greater Lipid Profileon 10-05-2024 CHOL:HDL 3.37 Normal [facility] Comment on above: Order Comment: 215.2 Performed By: #### L 500.4050, L501.9985, L100.0500 #### [facility] [address] [place], [address] Cholesterol [Mass/Vol] 103 mg/dL Normal <=200 [facility] Comment on above: Order Comment: 215.2 Result Comment: Chol esterol level, Desirable <200 mg/dL Borderline high cholesterol 200-239 mg/dL High cholesterol >=240 mg/dL Recommendations of the NCEP Adult Treatment Panel for the following risk-cutoff thresholds for the [place] population. Performed By: #### L 500.4050, L501.9985, L100.0500 #### [facility] [address] [place], [address] Cholesterol in HDL [Mass/Vol] 31 mg/dL Low [facility] Comment on above: Order Comment: 215.2 Result Comment: Stephanie onal Cholesterol Education Program (NCEP) guidelines: <40 mg/dL: Low HDL-cholesterol (major risk factor for CHD) >= 60 mg/dL: High HDL-cholesterol (negative risk factor for CHD) HDL-cholesterol is affected by a number of factors, e.g. smoking, exercise, hormones, sex and age. Performed By: #### L 500.4050, L501.9985, L100.0500 #### [facility] [address] [place], [address] Cholesterol in LDL [Mass/Vol] 31 mg/dL Normal [facility] Comment on above: Order Comment: 215.2 Result Comment: Bord blyeig=972-698 mg/dL Higher Xwrv=869 mg/dL or greater Performed By: #### L 500.4050, L501.9985, L100.0500 #### [facility] [address] [place], [address] Cholesterol in VLDL [Mass/Vol] 41 mg/dL High 5-40 [facility] Comment on above: Order Comment: 215.2 Performed By: #### L 500.4050, L501.9985, L100.0500 #### [facility] [address] [place], [address] Triglyceride [Mass/Vol] 207 mg/dL High [facility] Comment on above: Order Comment: 215.2 Result Comment: The drugs N-Acetylcysteine and Metamizole may falsely depress this assay. Normal range: <150 mg/dL Borderline High: 150-199 mg/dL High: 200-499 mg/dL Very High: >500 mg/dL Performed By: #### L 500.4050, L501.9985, L100.0500 #### [facility] [place], [address] Screening total cholesterol/ high density lipoprotein (HDL) cholesterol ratioOrdered By: Walter Becker on 10-05-2024 Cholesterol.total/Cholester ol in HDL [Mass ratio] 3.37 {ratio} [facility] Serum or plasma cholesterol in HDL measurement (mass/volume)Ordered By: Walter Becker on 10-05-2024 Cholesterol in HDL [Mass/Vol] 31 mg/dL Low >40 [facility] Comment on above: National Cholesterol Education Program (NCEP) guidelines:<40 mg/dL: Low HDL-cholesterol (major risk factor for CHD)>= 60 mg/dL: High HDL-cholesterol (negative risk factor for CHD)HDL-cholesterol is affected by a number of factors, e.g. smoking, exercise, hormones, sex and age. Serum or plasma cholesterol measurement (mass/volume)Ordered By: Walter Becker on 10-05-2024 Cholesterol [Mass/Vol] 103 mg/dL <201 [facility] Comment on above: Cholesterol level, D esirable <200 mg/dLBorderline high cholesterol 200-239 mg/dLHigh cholesterol >=240 mg/dLRecommendations of the NCEP Adult Treatment Panel for the following risk-cutoff thresholds for the [place] population. Triglycerides measurementOrd ered By: Walter Becker on 10-05-2024 Triglyceride [Mass/Vol] 207 mg/dL High <199 [facility] Comment on above: The drugs N-Acetylcy steine and Metamizole may falsely depress this assay. Normal range: <150 mg/dLBorderline High: 150-199 mg/dLHigh: 200-499 mg/dLVery High: >500 mg/dL Anion gap in Serum or Plasma Ordered By: Walter Becker on 09-29-2024 Anion gap [Moles/Vol] 11 mmol/L 5-15 [facility] BUN/creatinine ratioOrdered By: Walter Becker on 09-29-2024 Urea nitrogen/Creatinine [Mass ratio] 20.5 mg/mg High 10-20 [facility] Bilirubin, totalOrdered By: Walter Becker on 09-29-2024 Bilirubin [Mass/Vol] 0.31 mg/dL 0.00-1.30 [facility] CBC-Complete Blood Cnt No Di ffon 09-29-2024 Erythrocyte distribution width (RBC) [Ratio] 13.7 % Normal 11.6-14.6 [facility] Comment on above: Order Comment: 215.2 Performed By: #### L 500.4050, L501.9985, L100.0500 #### [facility] [address] [place], [address] Hematocrit (Bld) [Volume fraction] 37.0 % Low 40-54 [facility] Comment on above: Order Comment: 215.2 Performed By: #### L 500.4050, L501.9985, L100.0500 #### [facility] [address] [place], [address] Hemoglobin (Bld) [Mass/Vol] 11.8 g/dL Low 13.0-16. 5 [facility] Comment on above: Order Comment: 215.2 Performed By: #### L 500.4050, L501.9985, L100.0500 #### [facility] [address] [place], [address] MCH (RBC) [Entitic mass] 27.9 pg Normal 27.0-32.0 [facility] Comment on above: Order Comment: 215.2 Performed By: #### L 500.4050, L501.9985, L100.0500 #### [facility] [address] [place], [address] MCHC (RBC) [Mass/Vol] 31.9 g/dL Low 32-36 [facility] Comment on above: Order Comment: 215.2 Performed By: #### L 500.4050, L501.9985, L100.0500 #### [facility] [address] [place], [address] MCV (RBC) [Entitic vol] 87.5 fL Normal 80-94 [facility] Comment on above: Order Comment: 215.2 Performed By: #### L 500.4050, L501.9985, L100.0500 #### [facility] [address] [place], [address] Platelet mean volume (Bld) [Entitic vol] 9.6 fL Normal 6.2-12.0 [facility] Comment on above: Order Comment: 215.2 Performed By: #### L 500.4050, L501.9985, L100.0500 #### [facility] [address] [place], [address] Platelets (Bld) [#/Vol] 226 10*3/uL Normal 150-450 [facility] Comment on above: Order Comment: 215.2 Performed By: #### L 500.4050, L501.9985, L100.0500 #### [facility] [address] [place], [address] RBC (Bld) [#/Vol] 4.23 10*6/uL Low 4.6-6.2 [facility] Comment on above: Order Comment: 215.2 Performed By: #### L 500.4050, [id number], L100.0500 #### [facility] [address] [place], [address] RDW SD 43.7 fl Normal 35.1-43.9 [facility] Comment on above: Order Comment: 215.2 Performed By: #### L 500.4050, [id number], L100.0500 #### [facility] [address] [place], [address] WBC (Bld) [#/Vol] 8.9 10*3/uL Normal 4.4-11.0 [facility] Comment on above: Order Comment: 215.2 Performed By: #### L 500.4050, L501.9985, L100.0500 #### [facility] [address] [place], [address] Carbon dioxide, total [Moles /volume] in Central venous bloodOrdered By: Walter Becker on 09-29-2024 CO2 [Moles/Vol] 25.6 mmol/L 21.0-32.0 [facility] Chloride assayOrdered By: Horner on 09-29-2024 Chloride [Moles/Vol] 104 mmol/L 98-108 [facility] Comprehensive Metabolic Prof ilon 09-29-2024 Albumin [Mass/Vol] 3.6 g/dL Normal 3.4-4.8 [facility] Comment on above: Order Comment: 215.2 Performed By: #### L 500.4050, L501.9985, L100.0500 #### [facility] [address] [place], [address] Albumin/Globulin [Mass ratio] 1.8 {ratio} Normal 0.9-2.4 [facility] Comment on above: Order Comment: 215.2 Performed By: #### L 500.4050, [id number], L100.0500 #### [facility] [address] [place], [address] ALK PHOS 101 U/L Normal 40-129 [facility] Comment on above: Order Comment: 215.2 Performed By: #### L 500.4050, [id number], L100.0500 #### [facility] [address] [place], [address] ALT [Catalytic activity/Vol] 19 U/L Normal <=46 [facility] Comment on above: Order Comment: 215.2 Performed By: #### L 500.4050, [id number], L100.0500 #### [facility] [address] [place], [address] AST [Catalytic activity/Vol] 15 U/L Normal <=37 [facility] Comment on above: Order Comment: 215.2 Performed By: #### L 500.4050, [id number], L100.0500 #### [facility] [address] [place], [address] Bilirubin [Mass/Vol] 0.31 mg/dL Normal 0.00-1.30 [facility] Comment on above: Order Comment: 215.2 Performed By: #### L 500.4050, [id number], L100.0500 #### [facility] [address] [place], [address] BUN/CRE 20.5 RATIO High 10-20 [facility] Comment on above: Order Comment: 215.2 Performed By: #### L 500.4050, [id number], L100.0500 #### [facility] [address] [place], [address] Calcium [Mass/Vol] 9.2 mg/dL Normal 7.6-11.0 [facility] Comment on above: Order Comment: 215.2 Performed By: #### L 500.4050, [id number], L100.0500 #### [facility] [address] [place], [address] Chloride [Moles/Vol] 104 mmol/L Normal 98-108 [facility] Comment on above: Order Comment: 215.2 Performed By: #### L 500.4050, [id number], L100.0500 #### [facility] [address] [place], [address] CO2 [Moles/Vol] 25.6 mmol/L Normal 21.0-32.0 [facility] Comment on above: Order Comment: 215.2 Performed By: #### L 500.4050, [id number], L100.0500 #### [facility] [address] [place], [address] Creatinine [Mass/Vol] 1.10 mg/dL Normal 0.70-1.20 [facility] Comment on above: Order Comment: 215.2 Performed By: #### L 500.4050, [id number], L100.0500 #### [facility] [address] [place], [address] GAP 11 Normal 5-15 [facility] Comment on above: Order Comment: 215.2 Performed By: #### L 500.4050, L501.9985, L100.0500 #### [facility] [address] [place], [address] GFR/1.73 sq M.predicted among non-blacks MDRD (S/P/Bld) [Vol rate/Area] 70 mL/min/{1.73_m2} Normal >60 [facility] Comment on above: Order Comment: 215.2 Result Comment: mL/m in/1.73m2 CKD-EPI Creatinine Equation (2020) Performed By: #### L 500.4050, L501.9985, L100.0500 #### [facility] [address] [place], [address] Globulin (S) [Mass/Vol] 2.0 g/dL Low 2.2-4.2 [facility] Comment on above: Order Comment: 215.2 Performed By: #### L 500.4050, L501.9985, L100.0500 #### [facility] [address] [place], [address] Glucose [Mass/Vol] 155 mg/dL High 70-99 [facility] Comment on above: Order Comment: 215.2 Performed By: #### L 500.4050, [id number], L100.0500 #### [facility] [address] [place], [address] Potassium [Moles/Vol] 4.2 mmol/L Normal 3.3-5.1 [facility] Comment on above: Order Comment: 215.2 Performed By: #### L 500.4050, L501.9985, L100.0500 #### [facility] [address] [place], [address] Sodium [Moles/Vol] 141 mmol/L Normal 133-145 [facility] Comment on above: Order Comment: 215.2 Performed By: #### L 500.4050, [id number], L100.0500 #### [facility] [address] [place], [address] T PROT 5.6 g/dL Low 5.9-8.4 [facility] Comment on above: Order Comment: 215.2 Performed By: #### L 500.4050, [id number], L100.0500 #### [facility] [address] [place], [address] Urea nitrogen [Mass/Vol] 23 mg/dL High 4-19 [facility] Comment on above: Order Comment: 215.2 Performed By: #### L 500.4050, L501.9985, L100.0500 #### [facility] [address] [place], [address] Erythrocyte distribution wid th (RBC) [Ratio]Ordered By: Walter Becker on 09-29-2024 Erythrocyte distribution width (RBC) [Entitic vol] 43.7 fL 35.1-43.9 [facility] Erythrocyte distribution wid th ratioOrdered By: Walter Becker on 09-29-2024 Erythrocyte distribution width (RBC) [Ratio] 13.7 % 11.6-14.6 [facility] GFR/1.73 sq M.predicted kimberyl g non-blacks MDRD (S/P/Bld) [Vol rate/Area]Ordered By: Walter Becker on 09-29-2024 Estimated GFR (MDRD) Non-Af Amer 70 >60 [facility] Comment on above: mL/min/1.73m2 CKD-EP I Creatinine Equation (2020) Hematocrit Auto (Bld) [Volum e fraction]Ordered By: Walter Becker on 09-29-2024 Hematocrit (Bld) [Volume fraction] 37.0 % Low 40-54 [facility] Hemoglobin A1con 09-29-2024 HbA1c (Bld) [Mass fraction] 6.6 % Normal <=5.6 [facility] Comment on above: Order Comment: 215.2 Performed By: #### L 500.4050, L501.9985, L100.0500 #### [facility] [address] [place], [place], [id number] Hemoglobin A1c percentageOrd ered By: Walter Becker on 09-29-2024 HbA1c (Bld) [Mass fraction] 6.6 % >5.7 [facility] Hemoglobin measurementOrdere d By: Walter Becker on 09-29-2024 Hemoglobin (Bld) [Mass/Vol] 11.8 g/dL Low 13.0-16. 5 [facility] - Chemistry and C hemistry - challengeOrdered By: Walter Becker on 09-29-2024 AST [Catalytic activity/Vol] 15 U/L <38 [facility] MCV (mean corpuscular volume ) determinationOrdered By: Walter Becker on 09-29-2024 MCV (RBC) [Entitic vol] 87.5 fL 80-94 [facility] Mean corpuscular hemoglobin (MCH) determinationOrdered By: Walter Becker on 09-29-2024 MCH (RBC) [Entitic mass] 27.9 pg 27.0-32.0 [facility] Mean corpuscular hemoglobin concentration (MCHC) determinationOrdered By: Walter Becker on 09-29-2024 MCHC (RBC) [Mass/Vol] 31.9 g/dL Low 32-36 [facility] Mean platelet volume determi nationOrdered By: Walter Becker on 09-29-2024 Platelet mean volume (Bld) [Entitic vol] 9.6 fL 6.2-12.0 [facility] Platelet countOrdered By: Horner on 09-29-2024 Platelets (Bld) [#/Vol] 226 10*3/uL 150-450 [facility] Potassium (Unsp spec) [Mass/ Vol]Ordered By: Walter Becker on 09-29-2024 Potassium [Moles/Vol] 4.2 mmol/L 3.3-5.1 [facility] RBC Auto (Bld) [#/Vol]Ordere d By: Walter Becker on 09-29-2024 RBC (Bld) [#/Vol] 4.23 10*6/uL Low 4.6-6.2 [facility] Serum creatinine measurement (mass/volume)Ordered By: Walter Becker on 09-29-2024 Creatinine [Mass/Vol] 1.10 mg/dL 0.70-1.20 [facility] Serum globulin measurementOr dered By: Walter Becker on 09-29-2024 Globulin (S) [Mass/Vol] 2.0 g/dL Low 2.2-4.2 [facility] Serum glucose measurement (m ass/volume)Ordered By: Walter Becker on 09-29-2024 Glucose [Mass/Vol] 155 mg/dL High 70-99 [facility] Serum or plasma alanine davis otransferase (ALT) measurementOrdered By: Walter Becker on 09-29-2024 ALT [Catalytic activity/Vol] 19 U/L <47 [facility] Serum or plasma albumin antoine urement (mass/volume)Ordered By: Walter Becker on 09-29-2024 Albumin [Mass/Vol] 3.6 g/dL 3.4-4.8 [facility] Serum or plasma albumin/glob ulin mass ratioOrdered By: Walter Becker on 09-29-2024 Albumin/Globulin [Mass ratio] 1.8 {ratio} 0.9-2.4 [facility] Serum or plasma alkaline marilin sphatase measurementOrdered By: Walter Becker on 09-29-2024 ALP [Catalytic activity/Vol] 101 U/L 40-129 [facility] Serum or plasma calcium antoine urement (mass/volume)Ordered By: Walter Becker on 03-18-2025 Calcium [Mass/Vol] 9.2 mg/dL 7.6-11.0 [facility] Serum or plasma urea nitroge n measurement (mass/volume)Ordered By: Walter Becker on 09-29-2024 Urea nitrogen [Mass/Vol] 23 mg/dL High 4-19 [facility] Sodium levelOrdered By: Walter Becker on 09-29-2024 Sodium [Moles/Vol] 141 mmol/L 133-145 [facility] Total proteinOrdered By: Crystal Becker on 09-29-2024 Protein [Mass/Vol] 5.6 g/dL Low 5.9-8.4 [facility] White blood cell (WBC) count Ordered By: Walter Becker on 09-29-2024 WBC (Bld) [#/Vol] 8.9 10*3/uL 4.4-11.0 [facility] Urine Cultureon 08-05-2024 URC Culture exhibits no growth. Normal [facility] Comment on above: Performed By: #### L 500.4050, L501.9985, L100.0500 #### [facility] [address] [place], [address] Albumin to globulin ratioOrd ered By: Walter Becker on 08-04-2024 Albumin/Globulin [Mass ratio] 1.0 {ratio} 0.9-2.4 [facility] Bilirubin Test strip Ql (U)O rdered By: Walter Becker on 08-04-2024 Bilirubin Ql (U) Negative Negative [facility] Bilirubin, totalOrdered By: Walter Becker on 08-04-2024 Bilirubin [Mass/Vol] 0.50 mg/dL 0.20-1.00 [facility] Comment on above: For patients on eltr ombopag therapy, use of Dimension [place] TBIL is not recommended. Blood urea nitrogen (BUN)/cr eatinine ratioOrdered By: Walter Becker on 08-04-2024 Urea nitrogen/Creatinine [Mass ratio] 21.1 mg/mg High 10-20 [facility] CBC-Complete Blood Cnt No Di ffon 08-04-2024 Erythrocyte distribution width (RBC) [Ratio] 13.0 % Normal 11.6-14.6 [facility] Comment on above: Order Comment: 215.2 Performed By: #### L 500.4050, L501.9985, L100.0500 #### [facility] [address] [place], [address] Hematocrit (Bld) [Volume fraction] 41.3 % Normal 40-54 [facility] Comment on above: Order Comment: 215.2 Performed By: #### L 500.4050, L501.9985, L100.0500 #### [facility] [address] [place], [address] Hemoglobin (Bld) [Mass/Vol] 12.9 g/dL Low 13.0-16. 5 [facility] Comment on above: Order Comment: 215.2 Performed By: #### L 500.4050, L501.9985, L100.0500 #### [facility] [address] [place], [address] MCH (RBC) [Entitic mass] 27.3 pg Normal 27.0-32.0 [facility] Comment on above: Order Comment: 215.2 Performed By: #### L 500.4050, L501.9985, L100.0500 #### [facility] [address] [place], [address] MCHC (RBC) [Mass/Vol] 31.2 g/dL Low 32-36 [facility] Comment on above: Order Comment: 215.2 Performed By: #### L 500.4050, [id number], L100.0500 #### [facility] [address] [place], [address] MCV (RBC) [Entitic vol] 87.3 fL Normal 80-94 [facility] Comment on above: Order Comment: 215.2 Performed By: #### L 500.4050, L501.9985, L100.0500 #### [facility] [address] [place], [address] Platelet mean volume (Bld) [Entitic vol] 9.3 fL Normal 6.2-12.0 [facility] Comment on above: Order Comment: 215.2 Performed By: #### L 500.4050, L501.9985, L100.0500 #### [facility] [address] [place], [address] Platelets (Bld) [#/Vol] 295 10*3/uL Normal 150-450 [facility] Comment on above: Order Comment: 215.2 Performed By: #### L 500.4050, [id number], L100.0500 #### [facility] [address] [place], [address] RBC (Bld) [#/Vol] 4.73 10*6/uL Normal 4.6-6.2 [facility] Comment on above: Order Comment: 215.2 Performed By: #### L 500.4050, [id number], L100.0500 #### [facility] [address] [place], [address] RDW SD 41.8 fl Normal 35.1-43.9 [facility] Comment on above: Order Comment: 215.2 Performed By: #### L 500.4050, [id number], L100.0500 #### [facility] [address] [place], [address] WBC (Bld) [#/Vol] 9.3 10*3/uL Normal 4.4-11.0 [facility] Comment on above: Order Comment: 215.2 Performed By: #### L 500.4050, [id number], L100.0500 #### [facility] [address] [place], [address] Carbon dioxide measurementOr dered By: Walter Becker on 08-04-2024 CO2 [Moles/Vol] 29.0 mmol/L 21.0-32.0 [facility] Chloride measurementOrdered By: Walter Becker on 08-04-2024 Chloride [Moles/Vol] 104 mmol/L 98-107 [facility] Comprehensive Metabolic Prof ilon 08-04-2024 Albumin [Mass/Vol] 3.5 g/dL Normal 3.2-5.0 [facility] Comment on above: Order Comment: 215.2 Performed By: #### L 500.4050, [id number], L100.0500 #### [facility] [address] [place], [address] Albumin/Globulin [Mass ratio] 1.0 {ratio} Normal 0.9-2.4 [facility] Comment on above: Order Comment: 215.2 Performed By: #### L 500.4050, [id number], L100.0500 #### [facility] [address] [place], [address] ALK P 125 U/L High 45-117 [facility] Comment on above: Order Comment: 215.2 Performed By: #### L 500.4050, [id number], L100.0500 #### [facility] [address] [place], [address] ALT [Catalytic activity/Vol] 19 U/L Normal 16-61 [facility] Comment on above: Order Comment: 215.2 Performed By: #### L 500.4050, [id number], L100.0500 #### [facility] [address] [place], [address] AST [Catalytic activity/Vol] 12 U/L Low 15-37 [facility] Comment on above: Order Comment: 215.2 Performed By: #### L 500.4050, [id number], L100.0500 #### [facility] [address] [place], [address] Bilirubin [Mass/Vol] 0.50 mg/dL Normal 0.20-1.00 [facility] Comment on above: Order Comment: 215.2 Result Comment: For patients on eltrombopag therapy, use of Dimension [place] TBIL is not recommended. Performed By: #### L 500.4050, L501.9985, L100.0500 #### [facility] [address] [place], [address] BUN/CRE 21.1 RATIO High 10-20 [facility] Comment on above: Order Comment: 215.2 Performed By: #### L 500.4050, [id number], L100.0500 #### [facility] [address] [place], [address] CA,Total 9.7 mg/dL Normal 8.5-10.1 [facility] Comment on above: Order Comment: 215.2 Performed By: #### L 500.4050, [id number], L100.0500 #### [facility] [address] [place], [address] Chloride [Moles/Vol] 104 mmol/L Normal 98-107 [facility] Comment on above: Order Comment: 215.2 Performed By: #### L 500.4050, [id number], L100.0500 #### [facility] [address] [place], [address] CO2 [Moles/Vol] 29.0 mmol/L Normal 21.0-32.0 [facility] Comment on above: Order Comment: 215.2 Performed By: #### L 500.4050, [id number], L100.0500 #### [facility] [address] [place], [address] Creatinine [Mass/Vol] 1.28 mg/dL Normal 0.70-1.30 [facility] Comment on above: Order Comment: 215.2 Result Comment: The validity of the calculated GFR GFRAA in patients over 70 years has not been determined. Clinical correlation is essential. Performed By: #### L 500.4050, L501.9985, L100.0500 #### [facility] [address] [place], [address] EST GFR - AA 70 mL/min Normal >60 [facility] Comment on above: Order Comment: 215.2 Result Comment: Afri can Malagasy GFR Calc Performed By: #### L 500.4050, [id number], L100.0500 #### [facility] [address] [place], [address] GAP 7 Normal 5-15 [facility] Comment on above: Order Comment: 215.2 Performed By: #### L 500.4050, [id number], L100.0500 #### [facility] [address] [place], [address] GFR/1.73 sq M.predicted among non-blacks MDRD (S/P/Bld) [Vol rate/Area] 58 mL/min/{1.73_m2} Low >60 [facility] Comment on above: Order Comment: 215.2 Result Comment: Non- GFR Calc Performed By: #### L 500.4050, L501.9985, L100.0500 #### [facility] [address] [place], [address] Globulin (S) [Mass/Vol] 3.5 g/dL Normal 2.2-4.2 [facility] Comment on above: Order Comment: 215.2 Performed By: #### L 500.4050, [id number], L100.0500 #### [facility] [address] [place], [address] Glucose [Mass/Vol] 128 mg/dL High 74-106 [facility] Comment on above: Order Comment: 215.2 Result Comment: Fast ing Glucose result greater than or equal to 126 mg/dL suggests DIABETES MELLITUS per A.D.A. criteria. Performed By: #### L 500.4050, L501.9985, L100.0500 #### [facility] [address] [place], [address] Potassium [Moles/Vol] 3.9 mmol/L Normal 3.5-5.1 [facility] Comment on above: Order Comment: 215.2 Performed By: #### L 500.4050, [id number], L100.0500 #### [facility] [address] [place], [address] Sodium [Moles/Vol] 140 mmol/L Normal 136-145 [facility] Comment on above: Order Comment: 215.2 Performed By: #### L 500.4050, [id number], L100.0500 #### [facility] [address] [place], [address] T PROT 7.0 g/dL Normal 6.4-8.2 [facility] Comment on above: Order Comment: 215.2 Performed By: #### L 500.4050, [id number], L100.0500 #### [facility] [address] [place], [address] Urea nitrogen [Mass/Vol] 27 mg/dL High 7-18 [facility] Comment on above: Order Comment: 215.2 Performed By: #### L 500.4050, [id number], L100.0500 #### [facility] [address] [place], [address] Epithelial cells.squamous LM Ql (Urine sed)Ordered By: Walter Becker on 08-04-2024 Epithelial cells.squamous LM.HPF (Urine sed) [#/Area] 0 /[HPF] 0-5 [facility] Erythrocyte distribution wid th (RBC) [Ratio]Ordered By: Walter Becker on 08-04-2024 Erythrocyte distribution width (RBC) [Entitic vol] 41.8 fL 35.1-43.9 [facility] Erythrocyte distribution wid th ratioOrdered By: Walter Becker on 08-04-2024 Erythrocyte distribution width (RBC) [Ratio] 13.0 % 11.6-14.6 [facility] Estimated glomerular filtrat ion rate (GFR) AmericanOrdered By: Walter Becker on 08-04-2024 Estimated GFR (MDRD) Amer 70 mL/min >60 [facility] Comment on above: GFR Calc Glomerular filtration rate ( GFR) estimationOrdered By: Walter Becker on 08-04-2024 Estimated GFR (MDRD) Non-Af Amer 58 mL/min Low >60 [facility] Comment on above: Non- GFR Calc Glucose Ql (U)Ordered By: Horner on 08-04-2024 Urine Glucose (UA) Normal mg/dl Normal [facility] Glucose measurementOrdered B y: Walter Becker on 08-04-2024 Glucose [Mass/Vol] 128 mg/dL High 74-106 [facility] Comment on above: Fasting Glucose resu lt greater than or equal to 126 mg/dL suggests DIABETES MELLITUS per A.D.A. criteria. Hematocrit Auto (Bld) [Volum e fraction]Ordered By: Walter Becker on 08-04-2024 Hematocrit (Bld) [Volume fraction] 41.3 % 40-54 [facility] Hemoglobin measurementOrdere d By: Walter Becker on 08-04-2024 Hemoglobin (Bld) [Mass/Vol] 12.9 g/dL Low 13.0-16. 5 [facility] Ketones Test strip Ql (U)Ord ered By: Walter Becker on 08-04-2024 Ketones Ql (U) Negative Negative [facility] - Chemistry and C hemistry - challengeOrdered By: Walter Becker on 08-04-2024 AST [Catalytic activity/Vol] 12 U/L Low 15-37 [facility] MCV (mean corpuscular volume ) determinationOrdered By: Walter Becker on 08-04-2024 MCV (RBC) [Entitic vol] 87.3 fL 80-94 [facility] Mean corpuscular hemoglobin (MCH) determinationOrdered By: Walter Becker on 08-04-2024 MCH (RBC) [Entitic mass] 27.3 pg 27.0-32.0 [facility] Mean corpuscular hemoglobin concentration (MCHC) determinationOrdered By: Walter Becker on 08-04-2024 MCHC (RBC) [Mass/Vol] 31.2 g/dL Low 32-36 [facility] Mean platelet volume determi nationOrdered By: Walter Becker on 08-04-2024 Platelet mean volume (Bld) [Entitic vol] 9.3 fL 6.2-12.0 [facility] Microscopic analysis of urin e for red blood cells (RBC)Ordered By: Walter Becker on 08-04-2024 Urine RBC 0 SEEN /hpf 0-5 [facility] Mucus LM Ql (Urine sed)Order ed By: Walter Becker on 08-04-2024 Mucus Ql (Urine sed) 0 SEEN /hpf [facility] Nitrite Test strip Ql (U)Ord ered By: Walter Becker on 08-04-2024 Nitrite Ql (U) Negative Negative [facility] Platelet countOrdered By: Horner on 08-04-2024 Platelets (Bld) [#/Vol] 295 10*3/uL 150-450 [facility] Potassium measurementOrdered By: Walter Becker on 08-04-2024 Potassium [Moles/Vol] 3.9 mmol/L 3.5-5.1 [facility] Protein Test strip Ql (U)Ord ered By: Walter Becker on 08-04-2024 Protein Ql (U) Negative Negative [facility] RBC Auto (Bld) [#/Vol]Ordere d By: Walter Becker on 08-04-2024 RBC (Bld) [#/Vol] 4.73 10*6/uL 4.6-6.2 [facility] Serum anion gap measurementO rdered By: Walter Becker on 08-04-2024 Anion gap [Moles/Vol] 7 mmol/L 5-15 [facility] Serum globulin measurementOr dered By: Walter Becker on 08-04-2024 Globulin (S) [Mass/Vol] 3.5 g/dL 2.2-4.2 [facility] Serum or plasma alanine davis otransferase (ALT) measurementOrdered By: Walter Becker on 08-04-2024 ALT [Catalytic activity/Vol] 19 U/L 16-61 [facility] Serum or plasma albumin antoine urement (mass/volume)Ordered By: Walter Becker on 08-04-2024 Albumin [Mass/Vol] 3.5 g/dL 3.2-5.0 [facility] Serum or plasma alkaline marilin sphatase measurementOrdered By: Walter Becker on 08-04-2024 ALP [Catalytic activity/Vol] 125 U/L High 45-117 [facility] Serum or plasma calcium antoine urement (mass/volume)Ordered By: Walter Becker on 08-04-2024 Calcium [Mass/Vol] 9.7 mg/dL 8.5-10.1 [facility] Serum or plasma creatinine m easurement (mass/volume)Ordered By: Walter Becker on 08-04-2024 Creatinine [Mass/Vol] 1.28 mg/dL 0.70-1.30 [facility] Comment on above: The validity of the calculated GFR & GFRAA in patients over 70 years has not been determined. Clinical correlation is essential. Serum or plasma urea nitroge n measurement (mass/volume)Ordered By: Walter Becker on 08-04-2024 Urea nitrogen [Mass/Vol] 27 mg/dL High 7-18 [facility] Sodium levelOrdered By: Walter Becker on 08-04-2024 Sodium [Moles/Vol] 140 mmol/L 136-145 [facility] Total proteinOrdered By: Crystal Becker on 08-04-2024 Protein [Mass/Vol] 7.0 g/dL 6.4-8.2 [facility] Urinalysis, Completeon 08-04 WBC 0-5 SEEN Normal 0-5 [facility] Comment on above: Order Comment: 215.2 Performed By: #### L 500.7719, L501.9908, L100.0500 #### [facility] [address] [place], [address] BACTERIA 0 SEEN Normal None Seen [facility] Comment on above: Order Comment: 215.2 Performed By: #### L 500.4050, [id number], L100.0500 #### [facility] [address] [place], [address] EPI,SQUAMOUS 0 SEEN Normal 0-5 [facility] Comment on above: Order Comment: 215.2 Performed By: #### L 500.4050, [id number], L100.0500 #### [facility] [address] [place], [address] Mucus Ql (Urine sed) 0 SEEN Normal [facility] Comment on above: Order Comment: 215.2 Performed By: #### L 500.4050, [id number], L100.0500 #### [facility] [address] [place], [address] RBC 0 SEEN Normal 0-5 [facility] Comment on above: Order Comment: 215.2 Performed By: #### L 500.4050, [id number], L100.0500 #### [facility] [address] [place], [address] Urine blood detectionOrdered By: Walter Becker on 08-04-2024 Urine Occult Blood Negative Negative [facility] Urine clarityOrdered By: Crystal Becker on 08-04-2024 Clarity (U) Clear Clear [facility] Urine color determinationOrd ered By: Walter Becker on 08-04-2024 Color (U) Yellow Yellow [facility] Urine cultureOrdered By: Crystal Becker on 08-04-2024 Bacteria identified Cx Nom (U) Culture exhibits no growth. [facility] Urine leukocyte esterase det ection by dipstickOrdered By: Walter Becker on 08-04-2024 Leukocyte esterase Test strip Ql (U) Negative Negative [facility] Urine pHOrdered By: Walter floyd on 08-04-2024 pH (U) 6.0 [pH] 5.0 - 8.0 [facility] Urine sediment bacteria coun t by microscopy (number/high power field)Ordered By: Walter Becker on 08-04-2024 Bacteria LM.HPF (Urine sed) [#/Area] 0 /[HPF] None Seen [facility] Urine specific gravity measu rementOrdered By: Walter Becker on 08-04-2024 Specific gravity (U) [Rel density] 1.010 1.002-1.03 0 [facility] Urobilinogen Ql (U)Ordered B y: Walter Becker on 08-04-2024 Urine Urobilinogen Normal mg/dl Normal [facility] White blood cell (WBC) count Ordered By: Walter Becker on 08-04-2024 WBC (Bld) [#/Vol] 9.3 10*3/uL 4.4-11.0 [facility] White blood cell countOrdere d By: Walter Becker on 08-04-2024 Urine WBC 0-5 SEEN /hpf 0-5 [facility] Albumin to globulin ratioOrd ered By: Walter Becker on 07-27-2024 Albumin/Globulin [Mass ratio] 1.1 {ratio} 0.9-2.4 [facility] Bilirubin, totalOrdered By: Walter Becker on 07-27-2024 Bilirubin [Mass/Vol] 0.60 mg/dL 0.20-1.00 [facility] Comment on above: For patients on eltr ombopag therapy, use of Dimension [place] TBIL is not recommended. Blood urea nitrogen (BUN)/cr eatinine ratioOrdered By: Walter Becker on 07-27-2024 Urea nitrogen/Creatinine [Mass ratio] 20.0 mg/mg 10-20 [facility] CBC-Complete Blood Cnt No Di ffon 07-27-2024 Erythrocyte distribution width (RBC) [Ratio] 13.5 % Normal 11.6-14.6 [facility] Comment on above: Order Comment: 215.2 Performed By: #### L 500.4050, L501.9985, L100.0500 #### [facility] [address] [place], [address] Hematocrit (Bld) [Volume fraction] 35.7 % Low 40-54 [facility] Comment on above: Order Comment: 215.2 Performed By: #### L 500.4050, [id number], L100.0500 #### [facility] [address] [place], [address] Hemoglobin (Bld) [Mass/Vol] 11.5 g/dL Low 13.0-16. 5 [facility] Comment on above: Order Comment: 215.2 Performed By: #### L 500.4050, [id number], L100.0500 #### [facility] [address] [place], [address] MCH (RBC) [Entitic mass] 28.2 pg Normal 27.0-32.0 [facility] Comment on above: Order Comment: 215.2 Performed By: #### L 500.4050, [id number], L100.0500 #### [facility] [address] [place], [address] MCHC (RBC) [Mass/Vol] 32.2 g/dL Normal 32-36 [facility] Comment on above: Order Comment: 215.2 Performed By: #### L 500.4050, [id number], L100.0500 #### [facility] [address] [place], [address] MCV (RBC) [Entitic vol] 87.5 fL Normal 80-94 [facility] Comment on above: Order Comment: 215.2 Performed By: #### L 500.4050, [id number], L100.0500 #### [facility] [address] [place], [address] Platelet mean volume (Bld) [Entitic vol] 9.6 fL Normal 6.2-12.0 [facility] Comment on above: Order Comment: 215.2 Performed By: #### L 500.4050, [id number], L100.0500 #### [facility] [address] [place], [address] Platelets (Bld) [#/Vol] 192 10*3/uL Normal 150-450 [facility] Comment on above: Order Comment: 215.2 Performed By: #### L 500.4050, [id number], L100.0500 #### [facility] [address] [place], [address] RBC (Bld) [#/Vol] 4.08 10*6/uL Low 4.6-6.2 [facility] Comment on above: Order Comment: 215.2 Performed By: #### L 500.4050, [id number], L100.0500 #### [facility] [address] [place], [address] RDW SD 43.1 fl Normal 35.1-43.9 [facility] Comment on above: Order Comment: 215.2 Performed By: #### L 500.4050, [id number], L100.0500 #### [facility] [address] [place], [address] WBC (Bld) [#/Vol] 7.2 10*3/uL Normal 4.4-11.0 [facility] Comment on above: Order Comment: 215.2 Performed By: #### L 500.4050, [id number], L100.0500 #### [facility] [address] [place], [address] Carbon dioxide measurementOr dered By: Walter Becker on 07-27-2024 CO2 [Moles/Vol] 29.0 mmol/L 21.0-32.0 [facility] Chloride measurementOrdered By: Walter Becker on 07-27-2024 Chloride [Moles/Vol] 105 mmol/L 98-107 [facility] Comprehensive Metabolic Prof ilon 07-27-2024 Albumin [Mass/Vol] 3.1 g/dL Low 3.2-5.0 [facility] Comment on above: Order Comment: 215.2 Performed By: #### L 500.4050, [id number], L100.0500 #### [facility] [address] [place], [address] Albumin/Globulin [Mass ratio] 1.1 {ratio} Normal 0.9-2.4 [facility] Comment on above: Order Comment: 215.2 Performed By: #### L 500.4050, [id number], L100.0500 #### [facility] [address] [place], [address] ALK P 124 U/L High 45-117 [facility] Comment on above: Order Comment: 215.2 Performed By: #### L 500.4050, [id number], L100.0500 #### [facility] [address] [place], [address] ALT [Catalytic activity/Vol] 20 U/L Normal 16-61 [facility] Comment on above: Order Comment: 215.2 Performed By: #### L 500.4050, [id number], L100.0500 #### [facility] [address] [place], [address] AST [Catalytic activity/Vol] 10 U/L Low 15-37 [facility] Comment on above: Order Comment: 215.2 Performed By: #### L 500.4050, [id number], L100.0500 #### [facility] [address] [place], [address] Bilirubin [Mass/Vol] 0.60 mg/dL Normal 0.20-1.00 [facility] Comment on above: Order Comment: 215.2 Result Comment: For patients on eltrombopag therapy, use of Dimension [place] TBIL is not recommended. Performed By: #### L 500.4050, [id number], L100.0500 #### [facility] [address] [place], [address] BUN/CRE 20.0 RATIO Normal 10-20 [facility] Comment on above: Order Comment: 215.2 Performed By: #### L 500.4050, [id number], L100.0500 #### [facility] [address] [place], [address] CA,Total 8.9 mg/dL Normal 8.5-10.1 [facility] Comment on above: Order Comment: 215.2 Performed By: #### L 500.4050, [id number], L100.0500 #### [facility] [address] [place], [address] Chloride [Moles/Vol] 105 mmol/L Normal 98-107 [facility] Comment on above: Order Comment: 215.2 Performed By: #### L 500.4050, [id number], L100.0500 #### [facility] [address] [place], [address] CO2 [Moles/Vol] 29.0 mmol/L Normal 21.0-32.0 [facility] Comment on above: Order Comment: 215.2 Performed By: #### L 500.4050, [id number], L100.0500 #### [facility] [address] [place], [address] Creatinine [Mass/Vol] 1.10 mg/dL Normal 0.70-1.30 [facility] Comment on above: Order Comment: 215.2 Result Comment: The validity of the calculated GFR GFRAA in patients over 70 years has not been determined. Clinical correlation is essential. Performed By: #### L 500.4050, [id number], L100.0500 #### [facility] [address] [place], [address] EST GFR - AA 84 mL/min Normal >60 [facility] Comment on above: Order Comment: 215.2 Result Comment: Afri can Malagasy GFR Calc Performed By: #### L 500.4050, [id number], L100.0500 #### [facility] [address] [place], [address] GAP 4 Low 5-15 [facility] Comment on above: Order Comment: 215.2 Performed By: #### L 500.4050, [id number], L100.0500 #### [facility] [address] [place], [address] GFR/1.73 sq M.predicted among non-blacks MDRD (S/P/Bld) [Vol rate/Area] 69 mL/min/{1.73_m2} Normal >60 [facility] Comment on above: Order Comment: 215.2 Result Comment: Non- GFR Calc Performed By: #### L 500.4050, [id number], L100.0500 #### [facility] [address] [place], [address] Globulin (S) [Mass/Vol] 2.9 g/dL Normal 2.2-4.2 [facility] Comment on above: Order Comment: 215.2 Performed By: #### L 500.4050, [id number], L100.0500 #### [facility] [address] [place], [address] Glucose [Mass/Vol] 127 mg/dL High 74-106 [facility] Comment on above: Order Comment: 215.2 Result Comment: Fast ing Glucose result greater than or equal to 126 mg/dL suggests DIABETES MELLITUS per A.D.A. criteria. Performed By: #### L 500.4050, [id number], L100.0500 #### [facility] [address] [place], [address] Potassium [Moles/Vol] 4.1 mmol/L Normal 3.5-5.1 [facility] Comment on above: Order Comment: 215.2 Performed By: #### L 500.4050, [id number], L100.0500 #### [facility] [address] [place], [address] Sodium [Moles/Vol] 137 mmol/L Normal 136-145 [facility] Comment on above: Order Comment: 215.2 Performed By: #### L 500.4050, [id number], L100.0500 #### [facility] [address] [place], [address] T PROT 6.0 g/dL Low 6.4-8.2 [facility] Comment on above: Order Comment: 215.2 Performed By: #### L 500.4050, [id number], L100.0500 #### [facility] [address] [place], [address] Urea nitrogen [Mass/Vol] 22 mg/dL High 7-18 [facility] Comment on above: Order Comment: 215.2 Performed By: #### L 500.4050, [id number], L100.0500 #### [facility] [address] [place], [address] Erythrocyte distribution wid th (RBC) [Ratio]Ordered By: Walter Becker on 07-27-2024 Erythrocyte distribution width (RBC) [Entitic vol] 43.1 fL 35.1-43.9 [facility] Erythrocyte distribution wid th ratioOrdered By: Walter Becker on 07-27-2024 Erythrocyte distribution width (RBC) [Ratio] 13.5 % 11.6-14.6 [facility] Estimated glomerular filtrat ion rate (GFR) AmericanOrdered By: Walter Becker on 07-27-2024 Estimated GFR (MDRD) Amer 84 mL/min >60 [facility] Comment on above: GFR Calc Glomerular filtration rate ( GFR) estimationOrdered By: Walter Becker on 07-27-2024 Estimated GFR (MDRD) Non-Af Amer 69 mL/min >60 [facility] Comment on above: Non- GFR Calc Glucose measurementOrdered B y: Walter Becker on 07-27-2024 Glucose [Mass/Vol] 127 mg/dL High 74-106 [facility] Comment on above: Fasting Glucose resu lt greater than or equal to 126 mg/dL suggests DIABETES MELLITUS per A.D.A. criteria. Hematocrit Auto (Bld) [Volum e fraction]Ordered By: Walter Becker on 07-27-2024 Hematocrit (Bld) [Volume fraction] 35.7 % Low 40-54 [facility] Hemoglobin measurementOrdere d By: Walter Becker on 07-27-2024 Hemoglobin (Bld) [Mass/Vol] 11.5 g/dL Low 13.0-16. 5 [facility] - Chemistry and C hemistry - challengeOrdered By: Walter Becker on 07-27-2024 AST [Catalytic activity/Vol] 10 U/L Low 15-37 [facility] MCV (mean corpuscular volume ) determinationOrdered By: Walter Becker on 07-27-2024 MCV (RBC) [Entitic vol] 87.5 fL 80-94 [facility] Mean corpuscular hemoglobin (MCH) determinationOrdered By: Walter Becker on 07-27-2024 MCH (RBC) [Entitic mass] 28.2 pg 27.0-32.0 [facility] Mean corpuscular hemoglobin concentration (MCHC) determinationOrdered By: Walter Becker on 07-27-2024 MCHC (RBC) [Mass/Vol] 32.2 g/dL 32-36 [facility] Mean platelet volume determi nationOrdered By: Walter Becker on 07-27-2024 Platelet mean volume (Bld) [Entitic vol] 9.6 fL 6.2-12.0 [facility] Platelet countOrdered By: Horner on 07-27-2024 Platelets (Bld) [#/Vol] 192 10*3/uL 150-450 [facility] Potassium measurementOrdered By: Walter Becker on 07-27-2024 Potassium [Moles/Vol] 4.1 mmol/L 3.5-5.1 [facility] RBC Auto (Bld) [#/Vol]Ordere d By: Walter Becker on 07-27-2024 RBC (Bld) [#/Vol] 4.08 10*6/uL Low 4.6-6.2 [facility] Serum anion gap measurementO rdered By: Walter Becker on 07-27-2024 Anion gap [Moles/Vol] 4 mmol/L Low 5-15 [facility] Serum globulin measurementOr dered By: Walter Becker on 07-27-2024 Globulin (S) [Mass/Vol] 2.9 g/dL 2.2-4.2 [facility] Serum or plasma alanine davis otransferase (ALT) measurementOrdered By: Walter Becker on 07-27-2024 ALT [Catalytic activity/Vol] 20 U/L 16-61 [facility] Serum or plasma albumin antoine urement (mass/volume)Ordered By: Walter Becker on 07-27-2024 Albumin [Mass/Vol] 3.1 g/dL Low 3.2-5.0 [facility] Serum or plasma alkaline marilin sphatase measurementOrdered By: Walter Becker on 07-27-2024 ALP [Catalytic activity/Vol] 124 U/L High 45-117 [facility] Serum or plasma calcium antoine urement (mass/volume)Ordered By: Walter Becker on 07-27-2024 Calcium [Mass/Vol] 8.9 mg/dL 8.5-10.1 [facility] Serum or plasma creatinine m easurement (mass/volume)Ordered By: Walter Becker on 07-27-2024 Creatinine [Mass/Vol] 1.10 mg/dL 0.70-1.30 [facility] Comment on above: The validity of the calculated GFR & GFRAA in patients over 70 years has not been determined. Clinical correlation is essential. Serum or plasma urea nitroge n measurement (mass/volume)Ordered By: Walter Becker on 07-27-2024 Urea nitrogen [Mass/Vol] 22 mg/dL High 01-29 [facility] Sodium levelOrdered By: Walter Becker on 07-27-2024 Sodium [Moles/Vol] 137 mmol/L 136-145 [facility] Total proteinOrdered By: Crystal Becker on 07-27-2024 Protein [Mass/Vol] 6.0 g/dL Low 6.4-8.2 [facility] White blood cell (WBC) count Ordered By: Walter Becker on 07-27-2024 WBC (Bld) [#/Vol] 7.2 10*3/uL 4.4-11.0 [facility] Albumin to globulin ratioOrd ered By: Walter Becker on 07-07-2024 Albumin/Globulin [Mass ratio] 1.0 {ratio} 0.9-2.4 [facility] Bilirubin, totalOrdered By: Walter Becker on 07-07-2024 Bilirubin [Mass/Vol] 0.40 mg/dL 0.20-1.00 [facility] Comment on above: For patients on eltr ombopag therapy, use of Dimension [place] TBIL is not recommended. Blood urea nitrogen (BUN)/cr eatinine ratioOrdered By: Walter Becker on 07-07-2024 Urea nitrogen/Creatinine [Mass ratio] 23.6 mg/mg High 05-03 [facility] CBC-Complete Blood Cnt No Di ffon 07-07-2024 Erythrocyte distribution width (RBC) [Ratio] 13.3 % Normal 11.6-14.6 [facility] Comment on above: Order Comment: 215.2 Performed By: #### L 500.4050, L501.9985, L100.0500 #### [facility] [address] [place], [address] Hematocrit (Bld) [Volume fraction] 38.1 % Low 40-54 [facility] Comment on above: Order Comment: 215.2 Performed By: #### L 500.4050, [id number], L100.0500 #### [facility] [address] [place], [address] Hemoglobin (Bld) [Mass/Vol] 12.3 g/dL Low 13.0-16. 5 [facility] Comment on above: Order Comment: 215.2 Performed By: #### L 500.4050, [id number], L100.0500 #### [facility] [address] [place], [address] MCH (RBC) [Entitic mass] 28.3 pg Normal 27.0-32.0 [facility] Comment on above: Order Comment: 215.2 Performed By: #### L 500.4050, [id number], L100.0500 #### [facility] [address] [place], [address] MCHC (RBC) [Mass/Vol] 32.3 g/dL Normal 32-36 [facility] Comment on above: Order Comment: 215.2 Performed By: #### L 500.4050, [id number], L100.0500 #### [facility] [address] [place], [address] MCV (RBC) [Entitic vol] 87.6 fL Normal 80-94 [facility] Comment on above: Order Comment: 215.2 Performed By: #### L 500.4050, [id number], L100.0500 #### [facility] [address] [place], [address] Platelet mean volume (Bld) [Entitic vol] 9.1 fL Normal 6.2-12.0 [facility] Comment on above: Order Comment: 215.2 Performed By: #### L 500.4050, [id number], L100.0500 #### [facility] [address] [place], [address] Platelets (Bld) [#/Vol] 211 10*3/uL Normal 150-450 [facility] Comment on above: Order Comment: 215.2 Performed By: #### L 500.4050, [id number], L100.0500 #### [facility] [address] [place], [address] RBC (Bld) [#/Vol] 4.35 10*6/uL Low 4.6-6.2 [facility] Comment on above: Order Comment: 215.2 Performed By: #### L 500.4050, [id number], L100.0500 #### [facility] [address] [place], [address] RDW SD 42.5 fl Normal 35.1-43.9 [facility] Comment on above: Order Comment: 215.2 Performed By: #### L 500.4050, [id number], L100.0500 #### [facility] [address] [place], [address] WBC (Bld) [#/Vol] 7.6 10*3/uL Normal 4.4-11.0 [facility] Comment on above: Order Comment: 215.2 Performed By: #### L 500.4050, [id number], L100.0500 #### [facility] [address] [place], [address] Carbon dioxide measurementOr dered By: Walter Becker on 07-07-2024 CO2 [Moles/Vol] 32.0 mmol/L 21.0-32.0 [facility] Chloride measurementOrdered By: Walter Bceker on 07-07-2024 Chloride [Moles/Vol] 107 mmol/L 98-107 [facility] Comprehensive Metabolic Prof ilon 07-07-2024 Albumin [Mass/Vol] 2.9 g/dL Low 3.2-5.0 [facility] Comment on above: Order Comment: 215.2 Performed By: #### L 500.4050, [id number], L100.0500 #### [facility] [address] [place], [address] Albumin/Globulin [Mass ratio] 1.0 {ratio} Normal 0.9-2.4 [facility] Comment on above: Order Comment: 215.2 Performed By: #### L 500.4050, [id number], L100.0500 #### [facility] [address] [place], [address] ALK P 121 U/L High 45-117 [facility] Comment on above: Order Comment: 215.2 Performed By: #### L 500.4050, [id number], L100.0500 #### [facility] [address] [place], [address] ALT [Catalytic activity/Vol] 20 U/L Normal 16-61 [facility] Comment on above: Order Comment: 215.2 Performed By: #### L 500.4050, [id number], L100.0500 #### [facility] [address] [place], [address] AST [Catalytic activity/Vol] 10 U/L Low 15-37 [facility] Comment on above: Order Comment: 215.2 Performed By: #### L 500.4050, [id number], L100.0500 #### [facility] [address] [place], [address] Bilirubin [Mass/Vol] 0.40 mg/dL Normal 0.20-1.00 [facility] Comment on above: Order Comment: 215.2 Result Comment: For patients on eltrombopag therapy, use of Dimension [place] TBIL is not recommended. Performed By: #### L 500.4050, [id number], L100.0500 #### [facility] [address] [place], [address] BUN/CRE 23.6 RATIO High 10-20 [facility] Comment on above: Order Comment: 215.2 Performed By: #### L 500.4050, [id number], L100.0500 #### [facility] [address] [place], [address] CA,Total 9.1 mg/dL Normal 8.5-10.1 [facility] Comment on above: Order Comment: 215.2 Performed By: #### L 500.4050, [id number], L100.0500 #### [facility] [address] [place], [address] Chloride [Moles/Vol] 107 mmol/L Normal 98-107 [facility] Comment on above: Order Comment: 215.2 Performed By: #### L 500.4050, [id number], L100.0500 #### [facility] [address] [place], [address] CO2 [Moles/Vol] 32.0 mmol/L Normal 21.0-32.0 [facility] Comment on above: Order Comment: 215.2 Performed By: #### L 500.4050, [id number], L100.0500 #### [facility] [address] [place], [address] Creatinine [Mass/Vol] 1.06 mg/dL Normal 0.70-1.30 [facility] Comment on above: Order Comment: 215.2 Result Comment: The validity of the calculated GFR GFRAA in patients over 70 years has not been determined. Clinical correlation is essential. Performed By: #### L 500.4050, [id number], L100.0500 #### [facility] [address] [place], [address] EST GFR - AA 87 mL/min Normal >60 [facility] Comment on above: Order Comment: 215.2 Result Comment: Afri can Malagasy GFR Calc Performed By: #### L 500.4050, [id number], L100.0500 #### [facility] [address] [place], [address] GAP 3 Low 5-15 [facility] Comment on above: Order Comment: 215.2 Performed By: #### L 500.4050, [id number], L100.0500 #### [facility] [address] [place], [address] GFR/1.73 sq M.predicted among non-blacks MDRD (S/P/Bld) [Vol rate/Area] 72 mL/min/{1.73_m2} Normal >60 [facility] Comment on above: Order Comment: 215.2 Result Comment: Non- GFR Calc Performed By: #### L 500.4050, [id number], L100.0500 #### [facility] [address] [place], [address] Globulin (S) [Mass/Vol] 3.0 g/dL Normal 2.2-4.2 [facility] Comment on above: Order Comment: 215.2 Performed By: #### L 500.4050, [id number], L100.0500 #### [facility] [address] [place], [address] Glucose [Mass/Vol] 130 mg/dL High 74-106 [facility] Comment on above: Order Comment: 215.2 Result Comment: Fast ing Glucose result greater than or equal to 126 mg/dL suggests DIABETES MELLITUS per A.D.A. criteria. Performed By: #### L 500.4050, [id number], L100.0500 #### [facility] [address] [place], [address] Potassium [Moles/Vol] 3.9 mmol/L Normal 3.5-5.1 [facility] Comment on above: Order Comment: 215.2 Performed By: #### L 500.4050, [id number], L100.0500 #### [facility] [address] [place], [address] Sodium [Moles/Vol] 141 mmol/L Normal 136-145 [facility] Comment on above: Order Comment: 215.2 Performed By: #### L 500.4050, [id number], L100.0500 #### [facility] [address] [place], [address] T PROT 5.9 g/dL Low 6.4-8.2 [facility] Comment on above: Order Comment: 215.2 Performed By: #### L 500.4050, [id number], L100.0500 #### [facility] [address] [place], [address] Urea nitrogen [Mass/Vol] 25 mg/dL High 7-18 [facility] Comment on above: Order Comment: 215.2 Performed By: #### L 500.4050, L501.9985, L100.0500 #### [facility] [address] [place], [address] Erythrocyte distribution wid th (RBC) [Ratio]Ordered By: Walter Becker on 07-07-2024 Erythrocyte distribution width (RBC) [Entitic vol] 42.5 fL 35.1-43.9 [facility] Erythrocyte distribution wid th ratioOrdered By: Walter Becker on 07-07-2024 Erythrocyte distribution width (RBC) [Ratio] 13.3 % 11.6-14.6 [facility] Estimated glomerular filtrat ion rate (GFR) AmericanOrdered By: Walter Becker on 07-07-2024 Estimated GFR (MDRD) Amer 87 mL/min >60 [facility] Comment on above: GFR Calc Glomerular filtration rate ( GFR) estimationOrdered By: Walter Becker on 07-07-2024 Estimated GFR (MDRD) Non-Af Amer 72 mL/min >60 [facility] Comment on above: Non- GFR Calc Glucose measurementOrdered B y: Walter Becker on 07-07-2024 Glucose [Mass/Vol] 130 mg/dL High 74-106 [facility] Comment on above: Fasting Glucose resu lt greater than or equal to 126 mg/dL suggests DIABETES MELLITUS per A.D.A. criteria. Hematocrit Auto (Bld) [Volum e fraction]Ordered By: Walter Becker on 07-07-2024 Hematocrit (Bld) [Volume fraction] 38.1 % Low 40-54 [facility] Hemoglobin A1con 07-07-2024 HbA1c (Bld) [Mass fraction] 6.4 % High 3.8-5.6 [facility] Comment on above: Order Comment: 215.2 Result Comment: Norm al < 5.7 % Prediabetic 5.7 - 6.4 % Diabetic >or= 6.5 % Please note range changes. Performed By: #### L 500.4050, L501.9985, L100.0500 #### [facility] [address] [place], [address] Hemoglobin A1c percentageOrd ered By: Walter Becker on 07-07-2024 HbA1c (Bld) [Mass fraction] 6.4 % High 3.8-5.6 [facility] Comment on above: Normal < 5.7 % Predi abetic 5.7 - 6.4 % Diabetic >or= 6.5 % Please note range changes. Hemoglobin measurementOrdere d By: Walter Becker on 07-07-2024 Hemoglobin (Bld) [Mass/Vol] 12.3 g/dL Low 13.0-16. 5 [facility] - Chemistry and C hemistry - challengeOrdered By: Walter Becker on 07-07-2024 AST [Catalytic activity/Vol] 10 U/L Low 15-37 [facility] MCV (mean corpuscular volume ) determinationOrdered By: Walter Becker on 07-07-2024 MCV (RBC) [Entitic vol] 87.6 fL 80-94 [facility] Mean corpuscular hemoglobin (MCH) determinationOrdered By: Walter Becker on 07-07-2024 MCH (RBC) [Entitic mass] 28.3 pg 27.0-32.0 [facility] Mean corpuscular hemoglobin concentration (MCHC) determinationOrdered By: Walter Becker on 07-07-2024 MCHC (RBC) [Mass/Vol] 32.3 g/dL 32-36 [facility] Mean platelet volume determi nationOrdered By: Walter Becker on 07-07-2024 Platelet mean volume (Bld) [Entitic vol] 9.1 fL 6.2-12.0 [facility] Platelet countOrdered By: Horner on 07-07-2024 Platelets (Bld) [#/Vol] 211 10*3/uL 150-450 [facility] Potassium measurementOrdered By: Walter Becker on 07-07-2024 Potassium [Moles/Vol] 3.9 mmol/L 3.5-5.1 [facility] RBC Auto (Bld) [#/Vol]Ordere d By: Walter Becker on 07-07-2024 RBC (Bld) [#/Vol] 4.35 10*6/uL Low 4.6-6.2 [facility] Serum anion gap measurementO rdered By: Walter Becker on 07-07-2024 Anion gap [Moles/Vol] 3 mmol/L Low 5-15 [facility] Serum globulin measurementOr dered By: Walter Becker on 07-07-2024 Globulin (S) [Mass/Vol] 3.0 g/dL 2.2-4.2 [facility] Serum or plasma alanine davis otransferase (ALT) measurementOrdered By: Walter Becker on 07-07-2024 ALT [Catalytic activity/Vol] 20 U/L 16-61 [facility] Serum or plasma albumin antoine urement (mass/volume)Ordered By: Walter Becker on 07-07-2024 Albumin [Mass/Vol] 2.9 g/dL Low 3.2-5.0 [facility] Serum or plasma alkaline marilin sphatase measurementOrdered By: Walter Becker on 07-07-2024 ALP [Catalytic activity/Vol] 121 U/L High 45-117 [facility] Serum or plasma calcium antoine urement (mass/volume)Ordered By: Walter Becker on 07-07-2024 Calcium [Mass/Vol] 9.1 mg/dL 8.5-10.1 [facility] Serum or plasma creatinine m easurement (mass/volume)Ordered By: Walter Becker on 07-07-2024 Creatinine [Mass/Vol] 1.06 mg/dL 0.70-1.30 [facility] Comment on above: The validity of the calculated GFR & GFRAA in patients over 70 years has not been determined. Clinical correlation is essential. Serum or plasma urea nitroge n measurement (mass/volume)Ordered By: Walter Becker on 07-07-2024 Urea nitrogen [Mass/Vol] 25 mg/dL High - [facility] Sodium levelOrdered By: Walter Becker on 07-07-2024 Sodium [Moles/Vol] 141 mmol/L 136-145 [facility] Total proteinOrdered By: Crystal Becker on 07-07-2024 Protein [Mass/Vol] 5.9 g/dL Low 6.4-8.2 [facility] White blood cell (WBC) count Ordered By: Walter Becker on 07-07-2024 WBC (Bld) [#/Vol] 7.6 10*3/uL 4.4-11.0 [facility] Vitamin D,25 Hydroxyon 07-02 Vitamin D 25-OH 58.5 ng/mL Normal [facility] Comment on above: Order Comment: 215.2 Result Comment: Laure min D 25(OH) Status Range Deficiency <20 ng/mL (50nmol/L) Insufficiency 20 - 30 ng/mL (50 - 75 nmol/L) Sufficiency 30 - 100 ng/mL (75 - 250 nmol/L) Toxicity >100 ng/mL (>250 nmol/L) Performed By: #### L 506.1000 #### [facility] [address] [place], [address] 16-CU-Oylwmjh DOrdered By: Danny Becker on 07-01-2024 Vitamin D 25-Hydroxy 58.5 ng/mL [facility] Comment on above: Vitamin D 25(OH) Sta tus Range Deficiency <20 ng/mL (50nmol/L) Insufficiency 20 - 30 ng/mL (50 - 75 nmol/L) Sufficiency 30 - 100 ng/mL (75 - 250 nmol/L) Toxicity >100 ng/mL (>250 nmol/L) Bedside Glucoseon 06-01-2024 FINGERSTICK GLU 183 mg/dL High 74-106 [facility] Comment on above: Result Comment: JAZ WOODKACIE OF PATIENT CARE PER NURSING PROTOCOL Performed By: #### L 500.4050, L501.9985, L100.0500 #### [facility] [address] [place], [place], [address] Fluor Guidance for Spine Inj on 06-01-2024 Fluor Guidance for Spine Inj [facility] Imaging Services [address] [place] [address] Fluor Guidance for Spine Inj MR#: [id number] Acct: [id number] Name: RICHARD ROY Rep #: [id number] : 1945 M 78 From: Ravindra hogue MD PCP: Dr. Luis Caldera MD Status: [facility] Study: Fluor Guidance for Spine Inj Date of Exam: Exam# [id number] Ordering Dr: Kee Merritt MD [id number] PROCEDURE: Caudal block. DATE OF EXAMINATION: June 01, 2024. INDICATION: Male, 78 years old. Chronic low back pain. FLUOROSCOPY TIME (if supplied): (2.6 seconds) minutes/seconds. 0.72 mGy. One image was submitted. RAD/Fluor Guidance for Spine Inj IMPRESSION: Intraoperative imaging provided for caudal block. Electronically Signed: Ravindra Sierra MD at 12:53 EST , CC: Dr. Luis Caldera MD; Dr. Kee Merritt MD Cco & President: Signed Normal [facility] Operative Reporton Operative Report [facility] Medical Records Department [address] [place] [address] Operative Report 06/01/24 1141 MR#: [id number] Acct: [id number] Name: RICHARD ROY Rep #: [id number] : 1945 78 From: Kee Merritt MD PCP: Dr. Luis Caldera MD Status:[facility] [place] [facility] [place] (Standard) Operative Information Surgery/Procedure Performed: [...] 2 weeks for reevaluation. 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 Luis Caldera MD; Dr. Kee Merritt MD Signed Normal [facility] CBC-Complete Blood Cnt No Di ffon 04-14-2024 Erythrocyte distribution width (RBC) [Ratio] 14.6 % Normal 11.6-14.6 [facility] Comment on above: Order Comment: 215.2 Performed By: #### L 501.9985, L500.4050, L100.0500 #### [facility] [address] [place], [address] Hematocrit (Bld) [Volume fraction] 39.3 % Low 40-54 [facility] Comment on above: Order Comment: 215.2 Performed By: #### L 501.9985, L500.4050, L100.0500 #### [facility] [address] [place], [address] Hemoglobin (Bld) [Mass/Vol] 12.3 g/dL Low 13.0-16. 5 [facility] Comment on above: Order Comment: 215.2 Performed By: #### L 501.9985, L500.4050, L100.0500 #### [facility] [address] [place], [address] MCH (RBC) [Entitic mass] 27.3 pg Normal 27.0-32.0 [facility] Comment on above: Order Comment: 215.2 Performed By: #### L 501.9985, L500.4050, L100.0500 #### [facility] [address] [place], [address] MCHC (RBC) [Mass/Vol] 31.3 g/dL Low 32-36 [facility] Comment on above: Order Comment: 215.2 Performed By: #### L 501.9985, L500.4050, L100.0500 #### [facility] [address] [place], [address] MCV (RBC) [Entitic vol] 87.3 fL Normal 80-94 [facility] Comment on above: Order Comment: 215.2 Performed By: #### L 501.9985, L500.4050, L100.0500 #### [facility] [address] [place], [address] Platelet mean volume (Bld) [Entitic vol] 9.6 fL Normal 6.2-12.0 [facility] Comment on above: Order Comment: 215.2 Performed By: #### L 501.9985, L500.4050, L100.0500 #### [facility] [address] [place], [address] Platelets (Bld) [#/Vol] 224 10*3/uL Normal 150-450 [facility] Comment on above: Order Comment: 215.2 Performed By: #### L 501.9985, L500.4050, L100.0500 #### [facility] [address] [place], [address] RBC (Bld) [#/Vol] 4.50 10*6/uL Low 4.6-6.2 [facility] Comment on above: Order Comment: 215.2 Performed By: #### L 501.9985, L500.4050, L100.0500 #### [facility] [address] [place], [address] RDW SD 46.6 fl High 35.1-43.9 [facility] Comment on above: Order Comment: 215.2 Performed By: #### L 501.9985, L500.4050, L100.0500 #### [facility] [address] [place], [address] WBC (Bld) [#/Vol] 8.5 10*3/uL Normal 4.4-11.0 [facility] Comment on above: Order Comment: 215.2 Performed By: #### L 501.9985, L500.4050, L100.0500 #### [facility] [address] [place], [address] Comprehensive Metabolic Prof ilon 04-14-2024 Albumin [Mass/Vol] 3.1 g/dL Low 3.2-5.0 [facility] Comment on above: Order Comment: 215.2 Performed By: #### L 501.9985, L500.4050, L100.0500 #### [facility] [address] [place], [address] Albumin/Globulin [Mass ratio] 1.0 {ratio} Normal 0.9-2.4 [facility] Comment on above: Order Comment: 215.2 Performed By: #### L 501.9985, L500.4050, L100.0500 #### [facility] [address] [place], [address] ALK P 115 U/L Normal 45-117 [facility] Comment on above: Order Comment: 215.2 Performed By: #### L 501.9985, L500.4050, L100.0500 #### [facility] [address] [place], [address] ALT [Catalytic activity/Vol] 17 U/L Normal 16-61 [facility] Comment on above: Order Comment: 215.2 Performed By: #### L 501.9985, L500.4050, L100.0500 #### [facility] [address] [place], [address] AST [Catalytic activity/Vol] 5 U/L Low 15-37 [facility] Comment on above: Order Comment: 215.2 Performed By: #### L 501.9985, L500.4050, L100.0500 #### [facility] [address] [place], [address] Bilirubin [Mass/Vol] 0.60 mg/dL Normal 0.20-1.00 [facility] Comment on above: Order Comment: 215.2 Result Comment: For patients on eltrombopag therapy, use of Dimension [place] TBIL is not recommended. Performed By: #### L 501.9985, L500.4050, L100.0500 #### [facility] [address] [place], [address] BUN/CRE 21.2 RATIO High 10-20 [facility] Comment on above: Order Comment: 215.2 Performed By: #### L 501.9985, L500.4050, L100.0500 #### [facility] [address] [place], [address] CA,Total 9.6 mg/dL Normal 8.5-10.1 [facility] Comment on above: Order Comment: 215.2 Performed By: #### L 501.9985, L500.4050, L100.0500 #### [facility] [address] [place], [address] Chloride [Moles/Vol] 108 mmol/L High 98-107 [facility] Comment on above: Order Comment: 215.2 Performed By: #### L 501.9985, L500.4050, L100.0500 #### [facility] [address] [place], [address] CO2 [Moles/Vol] 29.0 mmol/L Normal 21.0-32.0 [facility] Comment on above: Order Comment: 215.2 Performed By: #### L 501.9985, L500.4050, L100.0500 #### [facility] [address] [place], [address] Creatinine [Mass/Vol] 1.13 mg/dL Normal 0.70-1.30 [facility] Comment on above: Order Comment: 215.2 Result Comment: The validity of the calculated GFR GFRAA in patients over 70 years has not been determined. Clinical correlation is essential. Performed By: #### L 501.9985, L500.4050, L100.0500 #### [facility] [address] [place], [address] EST GFR - AA 81 mL/min Normal >60 [facility] Comment on above: Order Comment: 215.2 Result Comment: Afri can Malagasy GFR Calc Performed By: #### L 501.9985, L500.4050, L100.0500 #### [facility] [address] [place], [address] GAP 4 Low 5-15 [facility] Comment on above: Order Comment: 215.2 Performed By: #### L 501.9985, L500.4050, L100.0500 #### [facility] [address] [place], [address] GFR/1.73 sq M.predicted among non-blacks MDRD (S/P/Bld) [Vol rate/Area] 67 mL/min/{1.73_m2} Normal >60 [facility] Comment on above: Order Comment: 215.2 Result Comment: Non- GFR Calc Performed By: #### L 501.9985, L500.4050, L100.0500 #### [facility] [address] [place], [address] Globulin (S) [Mass/Vol] 3.0 g/dL Normal 2.2-4.2 [facility] Comment on above: Order Comment: 215.2 Performed By: #### L 501.9985, L500.4050, L100.0500 #### [facility] [address] [place], [address] Glucose [Mass/Vol] 128 mg/dL High 74-106 [facility] Comment on above: Order Comment: 215.2 Result Comment: Fast ing Glucose result greater than or equal to 126 mg/dL suggests DIABETES MELLITUS per A.D.A. criteria. Performed By: #### L 501.9985, L500.4050, L100.0500 #### [facility] [address] [place], [address] Potassium [Moles/Vol] 4.2 mmol/L Normal 3.5-5.1 [facility] Comment on above: Order Comment: 215.2 Performed By: #### L 501.9985, L500.4050, L100.0500 #### [facility] [address] [place], [address] Sodium [Moles/Vol] 141 mmol/L Normal 136-145 [facility] Comment on above: Order Comment: 215.2 Performed By: #### L 501.9985, L500.4050, L100.0500 #### [facility] [address] [place], [address] T PROT 6.1 g/dL Low 6.4-8.2 [facility] Comment on above: Order Comment: 215.2 Performed By: #### L 501.9985, L500.4050, L100.0500 #### [facility] [address] [place], [address] Urea nitrogen [Mass/Vol] 24 mg/dL High 7-18 [facility] Comment on above: Order Comment: 215.2 Performed By: #### L 501.9985, L500.4050, L100.0500 #### [facility] [address] [place], [address] Hemoglobin A1con 04-14-2024 HbA1c (Bld) [Mass fraction] 6.5 % High 3.8-5.6 [facility] Comment on above: Order Comment: 215.2 Result Comment: Norm al < 5.7 % Prediabetic 5.7 - 6.4 % Diabetic >or= 6.5 % Please note range changes. Performed By: #### L 501.9985, L500.4050, L100.0500 #### [facility] [address] [place], [address] Urine Cultureon 04-11-2024 URC Culture exhibits no growth. Normal [facility] Comment on above: Performed By: #### L 500.4050, L501.9985, L100.0500 #### [facility] [address] [place], [address] CBC-Complete Blood Cnt No Di ffon 04-10-2024 Erythrocyte distribution width (RBC) [Ratio] 14.5 % Normal 11.6-14.6 [facility] Comment on above: Order Comment: 215.2 Performed By: #### L 500.4050, L501.9985, L100.0500 #### [facility] [address] [place], [address] Hematocrit (Bld) [Volume fraction] 41.3 % Normal 40-54 [facility] Comment on above: Order Comment: 215.2 Performed By: #### L 500.4050, L501.9985, L100.0500 #### [facility] [address] [place], [address] Hemoglobin (Bld) [Mass/Vol] 13.1 g/dL Normal 13.0-16. 5 [facility] Comment on above: Order Comment: 215.2 Performed By: #### L 500.4050, L501.9985, L100.0500 #### [facility] [address] [place], [address] MCH (RBC) [Entitic mass] 27.3 pg Normal 27.0-32.0 [facility] Comment on above: Order Comment: 215.2 Performed By: #### L 500.4050, L501.9985, L100.0500 #### [facility] [address] [place], [address] MCHC (RBC) [Mass/Vol] 31.7 g/dL Low 32-36 [facility] Comment on above: Order Comment: 215.2 Performed By: #### L 500.4050, L501.9985, L100.0500 #### [facility] [address] [place], [address] MCV (RBC) [Entitic vol] 86.0 fL Normal 80-94 [facility] Comment on above: Order Comment: 215.2 Performed By: #### L 500.4050, L501.9985, L100.0500 #### [facility] [address] [place], [address] Platelet mean volume (Bld) [Entitic vol] 9.4 fL Normal 6.2-12.0 [facility] Comment on above: Order Comment: 215.2 Performed By: #### L 500.4050, L501.9985, L100.0500 #### [facility] [address] [place], [address] Platelets (Bld) [#/Vol] 256 10*3/uL Normal 150-450 [facility] Comment on above: Order Comment: 215.2 Performed By: #### L 500.4050, L501.9985, L100.0500 #### [facility] [address] [place], [address] RBC (Bld) [#/Vol] 4.80 10*6/uL Normal 4.6-6.2 [facility] Comment on above: Order Comment: 215.2 Performed By: #### L 500.4050, L501.9985, L100.0500 #### [facility] [address] [place], [address] RDW SD 45.0 fl High 35.1-43.9 [facility] Comment on above: Order Comment: 215.2 Performed By: #### L 500.4050, L501.9985, L100.0500 #### [facility] [address] [place], [address] WBC (Bld) [#/Vol] 10.8 10*3/uL Normal 4.4-11.0 [facility] Comment on above: Order Comment: 215.2 Performed By: #### L 500.4050, L501.9985, L100.0500 #### [facility] [address] [place], [address] Urinalysis, Completeon 04-10 BACTERIA 0 SEEN Normal None Seen [facility] Comment on above: Order Comment: 215.2 Performed By: #### L 500.4050, L501.9985, L100.0500 #### [facility] [address] [place], [address] EPI,SQUAMOUS 0 SEEN Normal 0-5 [facility] Comment on above: Order Comment: 215.2 Performed By: #### L 500.4050, L501.9985, L100.0500 #### [facility] [address] [place], [address] Mucus Ql (Urine sed) 0 SEEN Normal [facility] Comment on above: Order Comment: 215.2 Performed By: #### L 500.4050, L501.9985, L100.0500 #### [facility] [address] [place], [address] RBC 0 SEEN Normal 0-5 [facility] Comment on above: Order Comment: 215.2 Performed By: #### L 500.4050, L501.9985, L100.0500 #### [facility] [address] [place], [address] WBC 0 SEEN Normal 0-5 [facility] Comment on above: Order Comment: 215.2 Performed By: #### L 500.4050, L501.9985, L100.0500 #### [facility] [address] [place], [address] CBC-Complete Blood Cnt No Di ffon 04-09-2024 Erythrocyte distribution width (RBC) [Ratio] 14.6 % Normal 11.6-14.6 [facility] Comment on above: Order Comment: 215.2 Performed By: #### L 300.3900 #### [facility] [address] [place], [address] Hematocrit (Bld) [Volume fraction] 39.6 % Low 40-54 [facility] Comment on above: Order Comment: 215.2 Performed By: #### L 300.3900 #### [facility] [address] [place], [address] Hemoglobin (Bld) [Mass/Vol] 12.4 g/dL Low 13.0-16. 5 [facility] Comment on above: Order Comment: 215.2 Performed By: #### L 300.3900 #### [facility] [address] [place], [address] MCH (RBC) [Entitic mass] 27.0 pg Normal 27.0-32.0 [facility] Comment on above: Order Comment: 215.2 Performed By: #### L 300.3900 #### [facility] [address] [place], [address] MCHC (RBC) [Mass/Vol] 31.3 g/dL Low 32-36 [facility] Comment on above: Order Comment: 215.2 Performed By: #### L 300.3900 #### [facility] [address] [place], [address] MCV (RBC) [Entitic vol] 86.3 fL Normal 80-94 [facility] Comment on above: Order Comment: 215.2 Performed By: #### L 300.3900 #### [facility] [address] [place], [address] Platelet mean volume (Bld) [Entitic vol] 9.4 fL Normal 6.2-12.0 [facility] Comment on above: Order Comment: 215.2 Performed By: #### L 300.3900 #### [facility] [address] [place], [address] Platelets (Bld) [#/Vol] 223 10*3/uL Normal 150-450 [facility] Comment on above: Order Comment: 215.2 Performed By: #### L 300.3900 #### [facility] [address] [place], [address] RBC (Bld) [#/Vol] 4.59 10*6/uL Low 4.6-6.2 [facility] Comment on above: Order Comment: 215.2 Performed By: #### L 300.3900 #### [facility] [address] [place], [address] RDW SD 45.5 fl High 35.1-43.9 [facility] Comment on above: Order Comment: 215.2 Performed By: #### L 300.3900 #### [facility] [address] [place], [address] WBC (Bld) [#/Vol] 11.9 10*3/uL High 4.4-11.0 [facility] Comment on above: Order Comment: 215.2 Performed By: #### L 300.3900 #### [facility] [address] [place], [address] CBC W/Diff, Automatedon 09-2 Absolute Lymph 2.54 X10 3/uL Normal 0.83-4.51 [facility] Comment on above: Performed By: #### L 500.4050, L501.9985, L100.0500 #### [facility] [address] [place], [address] Absolute Neut 7.3 X10 3/uL Normal 2.0-7.7 [facility] Comment on above: Performed By: #### L 500.4050, L501.9985, L100.0500 #### [facility] [address] [place], [address] Basophils/100 WBC (Bld) 0.3 % Normal 0-1 [facility] Comment on above: Performed By: #### L 500.4050, L501.9985, L100.0500 #### [facility] [address] [place], [address] Eosinophils/100 WBC (Bld) 3.7 % Normal 0-5 [facility] Comment on above: Performed By: #### L 500.4050, L501.9985, L100.0500 #### [facility] [address] [place], [address] Erythrocyte distribution width (RBC) [Ratio] 14.6 % Normal 11.6-14.6 [facility] Comment on above: Performed By: #### L 500.4050, L501.9985, L100.0500 #### [facility] [address] [place], [address] Hematocrit (Bld) [Volume fraction] 40.4 % Normal 40-54 [facility] Comment on above: Performed By: #### L 500.4050, L501.9985, L100.0500 #### [facility] [address] [place], [address] Hemoglobin (Bld) [Mass/Vol] 12.7 g/dL Low 13.0-16. 5 [facility] Comment on above: Performed By: #### L 500.4050, L501.9985, L100.0500 #### [facility] [address] [place], [address] IG% 2.000 High 0.0-0.9 [facility] Comment on above: Result Comment: IG% - Immature Granulocytes (promyelocytes, myelocytes and metamyelocytes) > 1% indicates that a LEFT SHIFT is Present. Performed By: #### L 500.4050, L501.9985, L100.0500 #### [facility] [address] [place], [address] Lymphocytes/100 WBC (Bld) 22.8 % Normal 19-41 [facility] Comment on above: Performed By: #### L 500.4050, L501.9985, L100.0500 #### [facility] [address] [place], [address] MCH (RBC) [Entitic mass] 27.3 pg Normal 27.0-32.0 [facility] Comment on above: Performed By: #### L 500.4050, L501.9985, L100.0500 #### [facility] [address] [place], [address] MCHC (RBC) [Mass/Vol] 31.4 g/dL Low 32-36 [facility] Comment on above: Performed By: #### L 500.4050, L501.9985, L100.0500 #### [facility] [address] [place], [address] MCV (RBC) [Entitic vol] 86.7 fL Normal 80-94 [facility] Comment on above: Performed By: #### L 500.4050, L501.9985, L100.0500 #### [facility] [address] [place], [address] Monocytes/100 WBC (Bld) 6.3 % Normal 0-10 [facility] Comment on above: Performed By: #### L 500.4050, L501.9985, L100.0500 #### [facility] [address] [place], [address] Neutrophils/100 WBC (Bld) 64.9 % Normal 47-70 [facility] Comment on above: Performed By: #### L 500.4050, L501.9985, L100.0500 #### [facility] [address] [place], [address] Nucleated RBC (Bld) [#/Vol] 0 10*3/uL Normal 0-5 [facility] Comment on above: Performed By: #### L 500.4050, L501.9985, L100.0500 #### [facility] [address] [place], [address] Platelet mean volume (Bld) [Entitic vol] 9.3 fL Normal 6.2-12.0 [facility] Comment on above: Performed By: #### L 500.4050, L501.9985, L100.0500 #### [facility] [address] [place], [address] Platelets (Bld) [#/Vol] 243 10*3/uL Normal 150-450 [facility] Comment on above: Performed By: #### L 500.4050, L501.9985, L100.0500 #### [facility] [address] [place], [address] RBC (Bld) [#/Vol] 4.66 10*6/uL Normal 4.6-6.2 [facility] Comment on above: Performed By: #### L 500.4050, L501.9985, L100.0500 #### [facility] [address] [place], [address] RDW SD 45.9 fl High 35.1-43.9 [facility] Comment on above: Performed By: #### L 500.4050, L501.9985, L100.0500 #### [facility] [address] [place], [address] WBC (Bld) [#/Vol] 11.2 10*3/uL High 4.4-11.0 [facility] Comment on above: Performed By: #### L 500.4050, L501.9985, L100.0500 #### [facility] [address] [place], [address] Comprehensive Metabolic Prof [facility] 04-08-2024 Albumin [Mass/Vol] 3.1 g/dL Low 3.2-5.0 [facility] Comment on above: Performed By: #### L 500.4050, L501.9985, L100.0500 #### [facility] [address] [place], [address] Albumin/Globulin [Mass ratio] 1.1 {ratio} Normal 0.9-2.4 [facility] Comment on above: Performed By: #### L 500.4050, L501.9985, L100.0500 #### [facility] [address] [place], [address] ALK P 97 U/L Normal 45-117 [facility] Comment on above: Performed By: #### L 500.4050, L501.9985, L100.0500 #### [facility] [address] [place], [address] ALT [Catalytic activity/Vol] 18 U/L Normal 16-61 [facility] Comment on above: Performed By: #### L 500.4050, L501.9985, L100.0500 #### [facility] [address] [place], [address] AST [Catalytic activity/Vol] 7 U/L Low 15-37 [facility] Comment on above: Performed By: #### L 500.4050, L501.9985, L100.0500 #### [facility] [address] [place], [address] Bilirubin [Mass/Vol] 0.40 mg/dL Normal 0.20-1.00 [facility] Comment on above: Result Comment: For patients on eltrombopag therapy, use of Dimension [place] TBIL is not recommended. Performed By: #### L 500.4050, L501.9985, L100.0500 #### [facility] [address] [place], [address] BUN/CRE 29.1 RATIO High 10-20 [facility] Comment on above: Performed By: #### L 500.4050, L501.9985, L100.0500 #### [facility] [address] [place], [address] CA,Total 9.3 mg/dL Normal 8.5-10.1 [facility] Comment on above: Performed By: #### L 500.4050, L501.9985, L100.0500 #### [facility] [address] [place], [address] Chloride [Moles/Vol] 106 mmol/L Normal 98-107 [facility] Comment on above: Performed By: #### L 500.4050, L501.9985, L100.0500 #### [facility] [address] [place], [address] CO2 [Moles/Vol] 29.0 mmol/L Normal 21.0-32.0 [facility] Comment on above: Performed By: #### L 500.4050, L501.9985, L100.0500 #### [facility] [address] [place], [address] Creatinine [Mass/Vol] 1.10 mg/dL Normal 0.70-1.30 [facility] Comment on above: Result Comment: The validity of the calculated GFR GFRAA in patients over 70 years has not been determined. Clinical correlation is essential. Performed By: #### L 500.4050, L501.9985, L100.0500 #### [facility] [address] [place], [address] EST GFR - AA 84 mL/min Normal >60 [facility] Comment on above: Result Comment: Afri can Malagasy GFR Calc Performed By: #### L 500.4050, L501.9985, L100.0500 #### [facility] [address] [place], [address] GAP 5 Normal 5-15 [facility] Comment on above: Performed By: #### L 500.4050, L501.9985, L100.0500 #### [facility] [address] [place], [address] GFR/1.73 sq M.predicted among non-blacks MDRD (S/P/Bld) [Vol rate/Area] 69 mL/min/{1.73_m2} Normal >60 [facility] Comment on above: Result Comment: Non- GFR Calc Performed By: #### L 500.4050, L501.9985, L100.0500 #### [facility] [address] [place], [address] Globulin (S) [Mass/Vol] 2.8 g/dL Normal 2.2-4.2 [facility] Comment on above: Performed By: #### L 500.4050, L501.9985, L100.0500 #### [facility] [address] [place], [address] Glucose [Mass/Vol] 133 mg/dL High 74-106 [facility] Comment on above: Result Comment: Fast ing Glucose result greater than or equal to 126 mg/dL suggests DIABETES MELLITUS per A.D.A. criteria. Performed By: #### L 500.4050, L501.9985, L100.0500 #### [facility] [address] [place], [address] Potassium [Moles/Vol] 3.8 mmol/L Normal 3.5-5.1 [facility] Comment on above: Performed By: #### L 500.4050, L501.9985, L100.0500 #### [facility] [address] [place], [address] Sodium [Moles/Vol] 140 mmol/L Normal 136-145 [facility] Comment on above: Performed By: #### L 500.4050, L501.9985, L100.0500 #### [facility] [address] [place], [address] T PROT 5.9 g/dL Low 6.4-8.2 [facility] Comment on above: Performed By: #### L 500.4050, L501.9985, L100.0500 #### [facility] [address] [place], [address] Urea nitrogen [Mass/Vol] 32 mg/dL High 7-18 [facility] Comment on above: Performed By: #### L 500.4050, L501.9985, L100.0500 #### [facility] [address] [place], [address] Lipid Profileon 04-08-2024 Cholesterol [Mass/Vol] 100 mg/dL Normal 200 [facility] Comment on above: Result Comment: <200 mg/dL Desirable 200-240 mg/dL Borderline >240 mg/dL High Risk Performed By: #### L 500.4050, L501.9985, L100.0500 #### [facility] [address] [place], [address] Cholesterol in HDL [Mass/Vol] 34 mg/dL Low [facility] Comment on above: Result Comment: The drugs N-Acetylcysteine and Metamizole may falsely depress this assay. Reference Range HDL <40 mg/dL Low HDL Cholesterol HDL >or= 60 mg/dL High HDL Cholesterol Performed By: #### L 500.4050, L501.9985, L100.0500 #### [facility] [address] [place], [address] Cholesterol in LDL [Mass/Vol] 36 mg/dL Normal 0-130 [facility] Comment on above: Performed By: #### L 500.4050, L501.9985, L100.0500 #### [facility] [address] [place], [address] Cholesterol in VLDL [Mass/Vol] 30 mg/dL Normal 5-40 [facility] Comment on above: Performed By: #### L 500.4050, L501.9985, L100.0500 #### [facility] [address] [place], [address] Triglyceride [Mass/Vol] 148 mg/dL Normal [facility] Comment on above: Result Comment: The drugs N-Acetylcysteine and Metamizole may falsely depress this assay. Serum Triglycerides Reference Interval Normal <150 mg/dL Borderline high 150 - 199 mg/dL High 200 - 499 mg/dL Very High > or = 500 mg/dL Performed By: #### L 500.4050, L501.9985, L100.0500 #### [facility] [address] [place], [address] Cardiology Visit Reporton Cardiology Visit Report [facility] [address] [place], [place] [id number] OFFICE VISIT Date of Service: 04/07/24 MR#: [id number] Acct: [id number] Name: RICHARD ROY Rep #: [id number] : 1945 Provider: Dr. Olga Lidia Rasheed MD Age/Sex: 78/M Location: [facility] Status: Signed HPI [facility] History of Present Illness Details: This [...] bisacodyl 10 mg rectal suppository 10 mg NE DAILY PRN constipation 05/30/23 04/07/24 History loperamide [...] Hypertension Father Heart disease Social History housing: retirement current occupational status: retired Smoking Status: Never smoker alcohol intake: never substance use type: does not use ROS Const Const: Negative for fatigue, weakness or headache(s) ENT ENT: Negative for headache(s), dizziness, Nosebleed/epistaxis or balance problems Cardio Chest Pain: No Palpitations: No Edema: None Muscle aches with walking: None Resp Respi (more content not included)... Normal [facility] Protime w/INR Fingerstickon 03-02-2024 INR Coag (PPP) [Relative time] 1.7 {INR} Normal [facility] Comment on above: Result Comment: Crit ical Value > 4.0 Performed By: #### L 500.4050, L501.9985, L100.0500 #### [facility] [address] [place], [address] Protime Coagsen 18.4 SEC High 11.7-14.9 [facility] Comment on above: Performed By: #### L 500.4050, L501.9985, L100.0500 #### [facility] [address] [place], [address] Prothrombin Time w/INRon INR Coag (PPP) [Relative time] 2.9 {INR} Normal [facility] Comment on above: Order Comment: 215.2 Performed By: #### L 300.3900 #### [facility] [address] [place], [address] PT Coag (PPP) [Time] 30.1 s High 11.7-14.9 [facility] Comment on above: Order Comment: 215.2 Performed By: #### L 300.3900 #### [facility] [address] [place], [address] Prothrombin Time w/INRon INR Coag (PPP) [Relative time] 2.2 {INR} Normal [facility] Comment on above: Performed By: #### L 500.4050, L501.9985, L100.0500 #### [facility] [address] [place], [address] PT Coag (PPP) [Time] 24.6 s High 11.7-14.9 [facility] Comment on above: Performed By: #### L 500.4050, L501.9985, L100.0500 #### [facility] [address] [place], [address] Protime w/INR Fingerstickon 02-17-2024 INR Coag (PPP) [Relative time] 1.8 {INR} Normal [facility] Comment on above: Result Comment: Crit ical Value > 4.0 Performed By: #### L 500.4050, L501.9985, L100.0500 #### [facility] [address] [place], [address] Protime Coagsen 19.6 SEC High 11.7-14.9 [facility] Comment on above: Performed By: #### L 500.4050, L501.9985, L100.0500 #### [facility] [address] [place], [address] Prothrombin Time w/INRon INR Coag (PPP) [Relative time] 2.6 {INR} Normal [facility] Comment on above: Order Comment: 215.2 Performed By: #### L 300.3900 #### [facility] [address] [place], [address] PT Coag (PPP) [Time] 27.9 s High 11.7-14.9 [facility] Comment on above: Order Comment: 215.2 Performed By: #### L 300.3900 #### [facility] [address] [place], [address] Prothrombin Time w/INRon INR Coag (PPP) [Relative time] 3.5 {INR} Normal [facility] Comment on above: Order Comment: 215.2 Performed By: #### L 300.3900 #### [facility] [address] [place], [address] PT Coag (PPP) [Time] 34.9 s High 11.7-14.9 [facility] Comment on above: Order Comment: 215.2 Performed By: #### L 300.3900 #### [facility] [address] [place], [address] Prothrombin Time w/INRon INR Coag (PPP) [Relative time] 3.3 {INR} Normal [facility] Comment on above: Order Comment: 215.2 Performed By: #### L 500.4050, L501.9985, L100.0500 #### [facility] [address] [place], [address] PT Coag (PPP) [Time] 33.5 s High 11.7-14.9 [facility] Comment on above: Order Comment: 215.2 Performed By: #### L 500.4050, L501.9985, L100.0500 #### [facility] [address] [place], [address] Protime w/INR Fingerstickon 02-03-2024 INR Coag (PPP) [Relative time] 2.6 {INR} Normal [facility] Comment on above: Result Comment: Crit ical Value > 4.0 Performed By: #### L 300.3900 #### [facility] [address] [place], [address] Protime Coagsen 26.7 SEC High 11.7-14.9 [facility] Comment on above: Performed By: #### L 300.3900 #### [facility] [address] [place], [address] Protime w/INR Fingerstickon 01-27-2024 INR Coag (PPP) [Relative time] 2.1 {INR} Normal [facility] Comment on above: Result Comment: Crit ical Value > 4.0 Performed By: #### L 500.4050, L501.9985, L100.0500 #### [facility] [address] [place], [address] Protime Coagsen 22.1 SEC High 11.7-14.9 [facility] Comment on above: Performed By: #### L 500.4050, L501.9985, L100.0500 #### [facility] [address] [place], [address] Prothrombin Time w/INRon INR Coag (PPP) [Relative time] 2.3 {INR} Normal [facility] Comment on above: Performed By: #### L 500.4050, L501.9985, L100.0500 #### [facility] [address] [place], [address] PT Coag (PPP) [Time] 25.4 s High 11.7-14.9 [facility] Comment on above: Performed By: #### L 500.4050, L501.9985, L100.0500 #### [facility] [address] [place], [address] Vitamin D,25 Hydroxyon 01-15 Vitamin D 25-OH 91.1 ng/mL Normal [facility] Comment on above: Order Comment: 215.2 Result Comment: Laure min D 25(OH) Status Range Deficiency <20 ng/mL (50nmol/L) Insufficiency 20 - 30 ng/mL (50 - 75 nmol/L) Sufficiency 30 - 100 ng/mL (75 - 250 nmol/L) Toxicity >100 ng/mL (>250 nmol/L) Performed By: #### L 300.3900 #### [facility] [address] [place], [address] CBC-Complete Blood Cnt No Di ffon 01-15-2024 Erythrocyte distribution width (RBC) [Ratio] 14.4 % Normal 11.6-14.6 [facility] Comment on above: Order Comment: 215.2 Performed By: #### L 300.3900 #### [facility] [address] [place], [address] Hematocrit (Bld) [Volume fraction] 40.5 % Normal 40-54 [facility] Comment on above: Order Comment: 215.2 Performed By: #### L 300.3900 #### [facility] [address] [place], [address] Hemoglobin (Bld) [Mass/Vol] 13.0 g/dL Normal 13.0-16. 5 [facility] Comment on above: Order Comment: 215.2 Performed By: #### L 300.3900 #### [facility] [address] [place], [address] MCH (RBC) [Entitic mass] 27.6 pg Normal 27.0-32.0 [facility] Comment on above: Order Comment: 215.2 Performed By: #### L 300.3900 #### [facility] [address] [place], [address] MCHC (RBC) [Mass/Vol] 32.1 g/dL Normal 32-36 [facility] Comment on above: Order Comment: 215.2 Performed By: #### L 300.3900 #### [facility] [address] [place], [address] MCV (RBC) [Entitic vol] 86.0 fL Normal 80-94 [facility] Comment on above: Order Comment: 215.2 Performed By: #### L 300.3900 #### [facility] [address] [place], [address] Platelet mean volume (Bld) [Entitic vol] 9.7 fL Normal 6.2-12.0 [facility] Comment on above: Order Comment: 215.2 Performed By: #### L 300.3900 #### [facility] [address] [place], [address] Platelets (Bld) [#/Vol] 228 10*3/uL Normal 150-450 [facility] Comment on above: Order Comment: 215.2 Performed By: #### L 300.3900 #### [facility] [address] [place], [address] RBC (Bld) [#/Vol] 4.71 10*6/uL Normal 4.6-6.2 [facility] Comment on above: Order Comment: 215.2 Performed By: #### L 300.3900 #### [facility] [address] [place], [address] RDW SD 44.4 fl High 35.1-43.9 [facility] Comment on above: Order Comment: 215.2 Performed By: #### L 300.3900 #### [facility] [address] [place], [address] WBC (Bld) [#/Vol] 8.8 10*3/uL Normal 4.4-11.0 [facility] Comment on above: Order Comment: 215.2 Performed By: #### L 300.3900 #### [facility] [address] [place], [address] Comprehensive Metabolic Prof ilon 01-15-2024 Albumin [Mass/Vol] 3.2 g/dL Normal 3.2-5.0 [facility] Comment on above: Order Comment: 215.2 Performed By: #### L 300.3900 #### [facility] [address] [place], [address] Albumin/Globulin [Mass ratio] 1.0 {ratio} Normal 0.9-2.4 [facility] Comment on above: Order Comment: 215.2 Performed By: #### L 300.3900 #### [facility] [address] [place], [address] ALK P 105 U/L Normal 45-117 [facility] Comment on above: Order Comment: 215.2 Performed By: #### L 300.3900 #### [facility] [address] [place], [address] ALT [Catalytic activity/Vol] 27 U/L Normal 16-61 [facility] Comment on above: Order Comment: 215.2 Performed By: #### L 300.3900 #### [facility] [address] [place], [address] AST [Catalytic activity/Vol] 8 U/L Low 15-37 [facility] Comment on above: Order Comment: 215.2 Performed By: #### L 300.3900 #### [facility] [address] [place], [address] Bilirubin [Mass/Vol] 0.40 mg/dL Normal 0.20-1.00 [facility] Comment on above: Order Comment: 215.2 Result Comment: For patients on eltrombopag therapy, use of Dimension [place] TBIL is not recommended. Performed By: #### L 300.3900 #### [facility] [address] [place], [address] BUN/CRE 22.0 RATIO High 10-20 [facility] Comment on above: Order Comment: 215.2 Performed By: #### L 300.3900 #### [facility] [address] [place], [address] CA,Total 9.1 mg/dL Normal 8.5-10.1 [facility] Comment on above: Order Comment: 215.2 Performed By: #### L 300.3900 #### [facility] [address] [place], [address] Chloride [Moles/Vol] 105 mmol/L Normal 98-107 [facility] Comment on above: Order Comment: 215.2 Performed By: #### L 300.3900 #### [facility] [address] [place], [address] CO2 [Moles/Vol] 30.0 mmol/L Normal 21.0-32.0 [facility] Comment on above: Order Comment: 215.2 Performed By: #### L 300.3900 #### [facility] [address] [place], [address] Creatinine [Mass/Vol] 1.27 mg/dL Normal 0.70-1.30 [facility] Comment on above: Order Comment: 215.2 Result Comment: The validity of the calculated GFR GFRAA in patients over 70 years has not been determined. Clinical correlation is essential. Performed By: #### L 300.3900 #### [facility] [address] [place], [address] EST GFR - AA 71 mL/min Normal >60 [facility] Comment on above: Order Comment: 215.2 Result Comment: Afri can Malagasy GFR Calc Performed By: #### L 300.3900 #### [facility] [address] [place], [address] GAP 6 Normal 5-15 [facility] Comment on above: Order Comment: 215.2 Performed By: #### L 300.3900 #### [facility] [address] [place], [address] GFR/1.73 sq M.predicted among non-blacks MDRD (S/P/Bld) [Vol rate/Area] 59 mL/min/{1.73_m2} Low >60 [facility] Comment on above: Order Comment: 215.2 Result Comment: Non- GFR Calc Performed By: #### L 300.3900 #### [facility] [address] [place], [address] Globulin (S) [Mass/Vol] 3.1 g/dL Normal 2.2-4.2 [facility] Comment on above: Order Comment: 215.2 Performed By: #### L 300.3900 #### [facility] [address] [place], [address] Glucose [Mass/Vol] 150 mg/dL High 74-106 [facility] Comment on above: Order Comment: 215.2 Result Comment: Fast ing Glucose result greater than or equal to 126 mg/dL suggests DIABETES MELLITUS per A.D.A. criteria. Performed By: #### L 300.3900 #### [facility] [address] [place], [address] Potassium [Moles/Vol] 4.1 mmol/L Normal 3.5-5.1 [facility] Comment on above: Order Comment: 215.2 Performed By: #### L 300.3900 #### [facility] [address] [place], [address] Sodium [Moles/Vol] 141 mmol/L Normal 136-145 [facility] Comment on above: Order Comment: 215.2 Performed By: #### L 300.3900 #### [facility] [address] [place], [address] T PROT 6.3 g/dL Low 6.4-8.2 [facility] Comment on above: Order Comment: 215.2 Performed By: #### L 300.3900 #### [facility] [address] [place], [address] Urea nitrogen [Mass/Vol] 28 mg/dL High 7-18 [facility] Comment on above: Order Comment: 215.2 Performed By: #### L 300.3900 #### [facility] [address] [place], [address] Hemoglobin A1con 01-15-2024 HbA1c (Bld) [Mass fraction] 6.5 % High 3.8-5.6 [facility] Comment on above: Order Comment: 215.2 Result Comment: Norm al < 5.7 % Prediabetic 5.7 - 6.4 % Diabetic >or= 6.5 % Please note range changes. Performed By: #### L 300.3900 #### [facility] [address] [place], [address] Prothrombin Time w/INRon INR Coag (PPP) [Relative time] 2.5 {INR} Normal [facility] Comment on above: Order Comment: 215.2 Performed By: #### L 300.3900 #### [facility] [address] [place], [address] PT Coag (PPP) [Time] 27.2 s High 11.7-14.9 [facility] Comment on above: Order Comment: 215.2 Performed By: #### L 300.3900 #### [facility] [address] [place], [address] Thyroid Stim Hormone (TSH)on 01-15-2024 TSH 1.55 uIU/mL Normal 0.358-3.74 [facility] Comment on above: Order Comment: 215.2 Performed By: #### L 300.3900 #### [facility] [address] [place], [address] Protime w/INR Fingerstickon 01-14-2024 INR Coag (PPP) [Relative time] 3.8 {INR} Normal [facility] Comment on above: Result Comment: Crit ical Value > 4.0 Performed By: #### L 9200.0000 #### [facility] [address] [place], [place], [address] Protime Coagsen 37.5 SEC High 11.7-14.9 [facility] Comment on above: Performed By: #### L 9200.0000 #### [facility] [address] [place], [place], [address] Prothrombin Time w/INRon INR Coag (PPP) [Relative time] 3.9 {INR} Normal [facility] Comment on above: Order Comment: 215.2 Performed By: #### L 300.3900 #### [facility] [address] [place], [place], [id number] ([address]) PT Coag (PPP) [Time] 37.6 s High 11.7-14.9 [facility] Comment on above: Order Comment: 215.2 Performed By: #### L 300.3900 #### [facility] [address] [place], [place], [address] Laboratory - CoagulationOrde red By: Walter Becker on 10-25-2023 INR Coag (Bld) [Relative time] 3.2 {INR} [facility] PT Coag (PPP) [Time] 32.9 s 11.7-14.9 [facility] - CoagulationOrde red By: Walter Becker on 10-16-2023 INR Coag (Bld) [Relative time] 1.9 {INR} [facility] PT Coag (PPP) [Time] 21.6 s 11.7-14.9 [facility] Basophil percentageOrdered B y: Walter Becker on 10-08-2023 Cholesterol [Mass/Vol] 107 mg/dL <200 [facility] Comment on above: <200 mg/dL Desirable 200-240 mg/dL Borderline >240 mg/dL High Risk Triglyceride [Mass/Vol] 133 mg/dL <199 [facility] Comment on above: The drugs N-Acetylcy steine and Metamizole may falsely depress this assay.Serum Triglycerides Reference Interval Normal <150 mg/dL Borderline high 150 - 199 mg/dL High 200 - 499 mg/dL Very High > or = 500 mg/dL Laboratory - Chemistry and C hemistry - challengeOrdered By: Walter Becker on 10-08-2023 ALT [Catalytic activity/Vol] 18 U/L 16-61 [facility] Cholesterol in HDL [Mass/Vol] 35 mg/dL >40 [facility] Comment on above: The drugs N-Acetylcy steine and Metamizole may falsely depress this assay. Reference Range HDL <40 mg/dL Low HDL Cholesterol HDL >or= 60 mg/dL High HDL Cholesterol Cholesterol in LDL [Mass/Vol] 45 mg/dL 0-130 [facility] CK [Catalytic activity/Vol] 59 U/L 39-308 [facility] No Panel InformationOrdered By: Walter Becker on 10-08-2023 VLDL Cholesterol 27 mg/dL 5-40 [facility] Thin prep Papanicolaou smear with manual screeningOrdered By: Walter Becker on 10-08-2023 Thin prep Papanicolaou smear with manual screening 10 U/L 15-37 [facility] Capillary blood internationa l normalized ratio (INR)Ordered By: Walter Becker on 10-04-2023 INR Coag (BldC) [Relative time] 2.2 [facility] Comment on above: Critical Value > 4.0 Whole blood prothrombin time Ordered By: Walter Becker on 10-04-2023 PT Coag (Bld) [Time] 22.6 s 11.7-14.9 [facility] Capillary blood internationa l normalized ratio (INR)Ordered By: Walter Becker on 10-01-2023 INR Coag (BldC) [Relative time] 1.9 [facility] Comment on above: Critical Value > 4.0 Whole blood prothrombin time Ordered By: Walter Becker on 10-01-2023 PT Coag (Bld) [Time] 19.9 s 11.7-14.9 [facility] Basophil percentageOrdered B y: Walter Becker on 09-25-2023 Bilirubin [Mass/Vol] 0.30 mg/dL 0.20-1.00 [facility] Comment on above: For patients on eltr ombopag therapy, use of Dimension [place] TBIL is not recommended. Chloride [Moles/Vol] 105 mmol/L 98-107 [facility] Glucose [Mass/Vol] 125 mg/dL 74-106 [facility] Comment on above: Fasting Glucose resu lt from 100 to 125 mg/dL suggests IMPAIRED HOMEOSTASIS per A.D.A. criteria. Hemoglobin (Bld) [Mass/Vol] 12.6 g/dL 13.0-16. 5 [facility] Potassium [Moles/Vol] 4.2 mmol/L 3.5-5.1 [facility] Protein [Mass/Vol] 6.2 g/dL 6.4-8.2 [facility] Sodium [Moles/Vol] 140 mmol/L 136-145 [facility] WBC (Bld) [#/Vol] 10.6 10*3/uL 4.4-11.0 [facility] Determination of erythrocyte mean corpuscular volume (MCV)Ordered By: Walter Becker on 09-25-2023 MCV (RBC) [Entitic vol] 85.8 fL 80-94 [facility] Erythrocyte distribution wid th ratioOrdered By: Walter Becker on 09-25-2023 Erythrocyte distribution width (RBC) [Ratio] 13.7 % 11.6-14.6 [facility] Erythrocyte distribution wid th standard deviationOrdered By: Walter Becker on 09-25-2023 Erythrocyte distribution width (RBC) [Entitic vol] 42.4 fL 35.1-43.9 [facility] Hematocrit Auto (Bld) [Volum e fraction]Ordered By: Walter Becker on 09-25-2023 Hematocrit (Bld) [Volume fraction] 39.4 % 40-54 [facility] Laboratory - Chemistry and C hemistry - challengeOrdered By: Walter Becker on 09-25-2023 Albumin/Globulin [Mass ratio] 1.1 {ratio} 0.9-2.4 [facility] ALP [Catalytic activity/Vol] 107 U/L 45-117 [facility] ALT [Catalytic activity/Vol] 19 U/L 16-61 [facility] CO2 [Moles/Vol] 29.0 mmol/L 21.0-32.0 [facility] Globulin (S) [Mass/Vol] 3.0 g/dL 2.2-4.2 [facility] Urea nitrogen/Creatinine [Mass ratio] 29.8 mg/mg 10-20 [facility] Laboratory - CoagulationOrde red By: Walter Becker on 09-25-2023 INR Coag (Bld) [Relative time] 2.8 {INR} [facility] PT Coag (PPP) [Time] 28.9 s 11.7-14.9 [facility] Laboratory - Hematology and Cell countsOrdered By: Walter Becker on 09-25-2023 MCH (RBC) [Entitic mass] 27.5 pg 27.0-32.0 [facility] MCHC (RBC) [Mass/Vol] 32.0 g/dL 32-36 [facility] Platelet mean volume (Bld) [Entitic vol] 9.9 fL 6.2-12.0 [facility] Platelets (Bld) [#/Vol] 235 10*3/uL 150-450 [facility] No Panel InformationOrdered By: Walter Becker on 09-25-2023 Estimated GFR (MDRD) Amer 75 mL/min >60 [facility] Comment on above: GFR Calc Estimated GFR (MDRD) Non-Af Amer 62 mL/min >60 [facility] Comment on above: Non- GFR Calc RBC Auto (Bld) [#/Vol]Ordere d By: Walter Becker on 09-25-2023 RBC (Bld) [#/Vol] 4.59 10*6/uL 4.6-6.2 [facility] Serum or plasma calcium antoine urement (mass/volume)Ordered By: Walter Becker on 09-25-2023 Calcium [Mass/Vol] 9.6 mg/dL 8.5-10.1 [facility] Serum or plasma creatinine m easurement (mass/volume)Ordered By: Walter Becker on 09-25-2023 Creatinine [Mass/Vol] 1.21 mg/dL 0.70-1.30 [facility] Comment on above: The validity of the calculated GFR & GFRAA in patients over 70 years has not been determined. Clinical correlation is essential. Serum or plasma urea nitroge n measurement (mass/volume)Ordered By: Walter Becker on 09-25-2023 Urea nitrogen [Mass/Vol] 36 mg/dL 7-18 [facility] Thin prep Papanicolaou smear with manual screeningOrdered By: Walter Becker on 09-25-2023 Thin prep Papanicolaou smear with manual screening 3.2 g/dL 3.2-5.0 [facility] Thin prep Papanicolaou smear with manual screening 11 U/L 15-37 [facility] Thin prep Papanicolaou smear with manual screening 6 5-15 [facility] Laboratory - CoagulationOrde red By: Walter Becker on 09-18-2023 INR Coag (Bld) [Relative time] 1.6 {INR} [facility] PT Coag (PPP) [Time] 18.7 s 11.7-14.9 [facility] Capillary blood internationa l normalized ratio (INR)Ordered By: Walter Becker on 09-13-2023 INR Coag (BldC) [Relative time] 3.1 [facility] Comment on above: Critical Value > 4.0 Whole blood prothrombin time Ordered By: Walter Becker on 09-13-2023 PT Coag (Bld) [Time] 33.3 s 11.7-14.9 [facility] Capillary blood internationa l normalized ratio (INR)Ordered By: Walter Becker on 09-12-2023 INR Coag (BldC) [Relative time] 1.7 [facility] Comment on above: Critical Value > 4.0 Whole blood prothrombin time Ordered By: Walter Becker on 09-12-2023 PT Coag (Bld) [Time] 19.2 s 11.7-14.9 [facility] Capillary blood internationa l normalized ratio (INR)Ordered By: Walter Becker on 09-09-2023 INR Coag (BldC) [Relative time] 2.9 [facility] Comment on above: Critical Value > 4.0 Whole blood prothrombin time Ordered By: Walter Becker on 09-09-2023 PT Coag (Bld) [Time] 31.5 s 11.7-14.9 [facility] Laboratory - CoagulationOrde red By: Walter Becker on 08-26-2023 INR Coag (Bld) [Relative time] 2.2 {INR} [facility] PT Coag (PPP) [Time] 24.7 s 11.7-14.9 [facility] Capillary blood internationa l normalized ratio (INR)Ordered By: Walter Becker on 08-19-2023 INR Coag (BldC) [Relative time] 2.7 [facility] Comment on above: Critical Value > 4.0 Whole blood prothrombin time Ordered By: Walter Becker on 08-19-2023 PT Coag (Bld) [Time] 29.2 s 11.7-14.9 [facility] Capillary blood internationa l normalized ratio (INR)Ordered By: Walter Becker on 08-12-2023 INR Coag (BldC) [Relative time] 2.5 [facility] Comment on above: Critical Value > 4.0 Whole blood prothrombin time Ordered By: Walter Becker on 08-12-2023 PT Coag (Bld) [Time] 26.7 s 11.7-14.9 [facility] Capillary blood internationa l normalized ratio (INR)Ordered By: Walter Becker on 08-05-2023 INR Coag (BldC) [Relative time] 1.9 [facility] Comment on above: Critical Value > 4.0 Whole blood prothrombin time Ordered By: Walter Becker on 08-05-2023 PT Coag (Bld) [Time] 20.7 s 11.7-14.9 [facility] Laboratory - CoagulationOrde red By: Walter Becker on 07-29-2023 INR Coag (Bld) [Relative time] 2.3 {INR} [facility] Comment on above: Critical Value > 4.0 Whole blood prothrombin time Ordered By: Walter Becker on 07-29-2023 PT Coag (Bld) [Time] 25.0 s 11.7-14.9 [facility] - CoagulationOrde red By: Walter Becker on 07-22-2023 INR Coag (Bld) [Relative time] 2.0 {INR} [facility] Comment on above: Critical Value > 4.0 Whole blood prothrombin time Ordered By: Walter Becker on 07-22-2023 PT Coag (Bld) [Time] 22.4 s 11.7-14.9 [facility] - CoagulationOrde red By: Walter Becker on 07-19-2023 INR Coag (Bld) [Relative time] 3.4 {INR} [facility] Comment on above: Critical Value > 4.0 Whole blood prothrombin time Ordered By: Walter Becker on 07-19-2023 PT Coag (Bld) [Time] 36.2 s 11.7-14.9 [facility] - CoagulationOrde red By: Walter Becker on 07-17-2023 INR Coag (Bld) [Relative time] 3.0 {INR} [facility] Comment on above: Critical Value > 4.0 Whole blood prothrombin time Ordered By: Walter Becker on 07-17-2023 PT Coag (Bld) [Time] 32.2 s 11.7-14.9 [facility] - CoagulationOrde red By: Walter Becker on 07-10-2023 INR Coag (Bld) [Relative time] 2.3 {INR} [facility] Comment on above: Critical Value > 4.0 Whole blood prothrombin time Ordered By: Walter Becker on 07-10-2023 PT Coag (Bld) [Time] 25.4 s 11.7-14.9 [facility] - CoagulationOrde red By: Walter Becker on 07-03-2023 INR Coag (Bld) [Relative time] 1.5 {INR} [facility] Comment on above: Critical Value > 4.0 Whole blood prothrombin time Ordered By: Walter Becker on 07-03-2023 PT Coag (Bld) [Time] 16.5 s 11.7-14.9 [facility] Laboratory - CoagulationOrde red By: Walter Becker on 06-26-2023 INR Coag (Bld) [Relative time] 2.3 {INR} [facility] Comment on above: Critical Value > 4.0 Whole blood prothrombin time Ordered By: Walter Becker on 06-26-2023 PT Coag (Bld) [Time] 24.7 s 11.7-14.9 [facility] - CoagulationOrde red By: Walter Becker on 06-25-2023 INR Coag (Bld) [Relative time] 3.2 {INR} [facility] Comment on above: Critical Value > 4.0 Whole blood prothrombin time Ordered By: Walter Becker on 06-25-2023 PT Coag (Bld) [Time] 34.3 s 11.7-14.9 [facility] Laboratory - CoagulationOrde red By: Walter Becker on 06-24-2023 INR Coag (Bld) [Relative time] 3.4 {INR} [facility] Comment on above: Critical Value > 4.0 Whole blood prothrombin time Ordered By: Walter Becker on 06-24-2023 PT Coag (Bld) [Time] 36.4 s 11.7-14.9 [facility] Laboratory - CoagulationOrde red By: Walter Becker on 06-17-2023 INR Coag (Bld) [Relative time] 2.4 {INR} [facility] Comment on above: Critical Value > 4.0 Whole blood prothrombin time Ordered By: Walter Becker on 06-17-2023 PT Coag (Bld) [Time] 26.1 s 11.7-14.9 [facility] Laboratory - CoagulationOrde red By: Walter Becker on 06-10-2023 INR Coag (Bld) [Relative time] 1.4 {INR} [facility] Comment on above: Critical Value > 4.0 Whole blood prothrombin time Ordered By: Walter Becker on 06-10-2023 PT Coag (Bld) [Time] 15.9 s 11.7-14.9 [facility] Glucose Glucometer (BldC) [M ass/Vol]Ordered By: Kee Merritt on 06-03-2023 Glucose [Mass/Vol] 130 mg/dL 74-106 [facility] Comment on above: MANAGEMENT OF PATIEN T CARE PER NURSING PROTOCOL Laboratory - CoagulationOrde red By: Walter Becker on 05-20-2023 INR Coag (Bld) [Relative time] 2.6 {INR} [facility] Comment on above: Critical Value > 4.0 No Panel InformationOrdered By: Walter Becker on 05-20-2023 2.6 [facility] Whole blood prothrombin time Ordered By: Walter Becker on 05-20-2023 PT Coag (Bld) [Time] 27.6 s 11.7-14.9 [facility] Basophil percentageOrdered B y: Walter Becker on 05-15-2023 Basophil percentage 0 SEEN /hpf 0-5 [facility] Basophil percentage 114 mg/dL 74-106 [facility] Basophil percentage 5.9 g/dL 6.4-8.2 [facility] Basophil percentage 0.40 mg/dL 0.20-1.00 [facility] Basophil percentage 140 mmol/L 136-145 [facility] Basophil percentage 4.1 mmol/L 3.5-5.1 [facility] Basophil percentage 105 mmol/L 98-107 [facility] Basophils (Bld) [#/Vol] 10.4 10*3/uL 4.4-11.0 [facility] Bilirubin [Mass/Vol] 0.40 mg/dL 0.20-1.00 [facility] Comment on above: For patients on eltr ombopag therapy, use of Dimension [place] TBIL is not recommended. Chloride [Moles/Vol] 105 mmol/L 98-107 [facility] Glucose [Mass/Vol] 114 mg/dL 74-106 [facility] Comment on above: Fasting Glucose resu lt from 100 to 125 mg/dL suggests IMPAIRED HOMEOSTASIS per A.D.A. criteria. Potassium [Moles/Vol] 4.1 mmol/L 3.5-5.1 [facility] Protein [Mass/Vol] 5.9 g/dL 6.4-8.2 [facility] Sodium [Moles/Vol] 140 mmol/L 136-145 [facility] WBC (Bld) [#/Vol] 10.4 10*3/uL 4.4-11.0 [facility] Bilirubin Test strip Ql (U)O rdered By: Walter Becker on 05-15-2023 Bilirubin Ql (U) Negative Negative [facility] Blood erythrocytes count (nu mber/volume)Ordered By: Walter Becker on 05-15-2023 RBC (Bld) [#/Vol] 4.37 10*6/uL 4.6-6.2 [facility] Blood hemoglobin measurement (mass/volume)Ordered By: Walter Becker on 05-15-2023 Hemoglobin (Bld) [Mass/Vol] 11.6 g/dL 13.0-16. 5 [facility] Blood platelet mean volumeOr dered By: Walter Becker on 05-15-2023 Platelet mean volume (Bld) [Entitic vol] 9.4 fL 6.2-12.0 [facility] Culture, urineOrdered By: Horner on 05-15-2023 Bacteria identified Cx Nom (U) Culture exhibits no growth. [facility] Determination of erythrocyte mean corpuscular volume (MCV)Ordered By: Walter Becker on 05-15-2023 MCV (RBC) [Entitic vol] 84.7 fL 80-94 [facility] Hematocrit Auto (Bld) [Volum e fraction]Ordered By: Walter Becker on 05-15-2023 Hematocrit (Bld) [Volume fraction] 37.0 % 40-54 [facility] Ketones Test strip Ql (U)Ord ered By: Walter Becker on 05-15-2023 Ketones Ql (U) Negative Negative [facility] Laboratory - Chemistry and C hemistry - challengeOrdered By: Walter Becker on 05-15-2023 ALP [Catalytic activity/Vol] 97 U/L 45-117 [facility] ALT [Catalytic activity/Vol] 21 U/L 16-61 [facility] CO2 [Moles/Vol] 28.0 mmol/L 21.0-32.0 [facility] Globulin (S) [Mass/Vol] 3.0 g/dL 2.2-4.2 [facility] Urea nitrogen/Creatinine [Mass ratio] 30.7 mg/mg 10-20 [facility] Laboratory - Hematology and Cell countsOrdered By: Walter Becker on 05-15-2023 Erythrocyte distribution width (RBC) [Entitic vol] 43.3 fL 35.1-43.9 [facility] Erythrocyte distribution width (RBC) [Ratio] 14.1 % 11.6-14.6 [facility] MCH (RBC) [Entitic mass] 26.5 pg 27.0-32.0 [facility] MCHC Auto (RBC) [Mass/Vol]Or dered By: Walter Becker on 05-15-2023 MCHC (RBC) [Mass/Vol] 31.4 g/dL 32-36 [facility] Mucus LM Ql (Urine sed)Order ed By: Walter Becker on 05-15-2023 Mucus Ql (Urine sed) 0 SEEN /hpf [facility] Nitrite Test strip Ql (U)Ord ered By: Walter Becker on 05-15-2023 Nitrite Ql (U) Negative Negative [facility] No Panel InformationOrdered By: Walter Becker on 05-15-2023 Estimated GFR (MDRD) Amer 96 mL/min >60 [facility] Comment on above: GFR Calc Estimated GFR (MDRD) Non-Af Amer 79 mL/min >60 [facility] Comment on above: Non- GFR Calc 26.5 pg 27.0-32.0 [facility] 14.1 % 11.6-14.6 [facility] 43.3 fl 35.1-43.9 [facility] 79 mL/min >60 [facility] 96 mL/min >60 [facility] 30.7 RATIO 10-20 [facility] 3.0 g/dL 2.2-4.2 [facility] 97 U/L 45-117 [facility] 21 U/L 16-61 [facility] 28.0 mmol/L 21.0-32.0 [facility] Platelets bldOrdered By: Crystal Becker on 05-15-2023 Platelets (Bld) [#/Vol] 256 10*3/uL 150-450 [facility] Protein Test strip Ql (U)Ord ered By: Walter Becker on 05-15-2023 Protein Ql (U) Negative Negative [facility] Serum or plasma albumin antoine urement (mass/volume)Ordered By: Walter Becker on 05-15-2023 Albumin [Mass/Vol] 2.9 g/dL 3.2-5.0 [facility] Serum or plasma albumin/glob ulin mass ratioOrdered By: Walter Becker on 05-15-2023 Albumin/Globulin [Mass ratio] 1.0 {ratio} 0.9-2.4 [facility] Serum or plasma calcium antoine urement (mass/volume)Ordered By: Walter Becker on 05-15-2023 Calcium [Mass/Vol] 8.8 mg/dL 8.5-10.1 [facility] Serum or plasma creatinine m easurement (mass/volume)Ordered By: Walter Becker on 05-15-2023 Creatinine [Mass/Vol] 0.98 mg/dL 0.70-1.30 [facility] Comment on above: The validity of the calculated GFR & GFRAA in patients over 70 years has not been determined. Clinical correlation is essential. Serum or plasma urea nitroge n measurement (mass/volume)Ordered By: Walter Becker on 05-15-2023 Urea nitrogen [Mass/Vol] 30 mg/dL 7-18 [facility] Squamous epithelial cells de tection in urine sediment by light microscopyOrdered By: Walter Becker on 05-15-2023 Epithelial cells.squamous LM Ql (Urine sed) 0 SEEN /hpf 0-5 [facility] Thin prep Papanicolaou smear with manual screeningOrdered By: Walter Becker on 05-15-2023 Thin prep Papanicolaou smear with manual screening 9 U/L 15-37 [facility] Thin prep Papanicolaou smear with manual screening 7 5-15 [facility] Urine blood detectionOrdered By: Walter Becker on 05-15-2023 RBC Ql (U) Negative Negative [facility] RBC Ql (U) 0 SEEN /hpf 0-5 [facility] Urine clarityOrdered By: Crystal Becker on 05-15-2023 Clarity (U) Clear Clear [facility] Urine color determinationOrd ered By: Walter Becker on 05-15-2023 Color (U) Yellow Yellow [facility] Urine glucose detectionOrder ed By: Walter Becker on 05-15-2023 Glucose Ql (U) Normal mg/dl Normal [facility] Urine leukocyte esterase det ection by dipstickOrdered By: Walter Becker on 05-15-2023 Leukocyte esterase Test strip Ql (U) Negative Negative [facility] Urine pHOrdered By: Walter floyd on 05-15-2023 pH (U) 5.0 [pH] 5.0 - 8.0 [facility] Urine sediment bacteria coun t by microscopy (number/high power field)Ordered By: Walter Becker on 05-15-2023 Bacteria LM.HPF (Urine sed) [#/Area] 0 /[HPF] None Seen [facility] Urine specific gravity measu rementOrdered By: Walter Becker on 05-15-2023 Specific gravity (U) [Rel density] 1.010 1.002-1.03 0 [facility] Urobilinogen Auto test strip Ql (U)Ordered By: Walter Becker on 05-15-2023 Urobilinogen Ql (U) Normal mg/dl Normal [facility] Basophil percentageOrdered B y: Walter Becker on 05-06-2023 Basophil percentage 135 mg/dL 74-106 [facility] Basophil percentage 5.9 g/dL 6.4-8.2 [facility] Basophil percentage 0.40 mg/dL 0.20-1.00 [facility] Basophil percentage 140 mmol/L 136-145 [facility] Basophil percentage 3.7 mmol/L 3.5-5.1 [facility] Basophil percentage 106 mmol/L 98-107 [facility] Basophils (Bld) [#/Vol] 9.4 10*3/uL 4.4-11.0 [facility] Bilirubin [Mass/Vol] 0.40 mg/dL 0.20-1.00 [facility] Comment on above: For patients on eltr ombopag therapy, use of Dimension [place] TBIL is not recommended. Chloride [Moles/Vol] 106 mmol/L 98-107 [facility] Glucose [Mass/Vol] 135 mg/dL 74-106 [facility] Comment on above: Fasting Glucose resu lt greater than or equal to 126 mg/dL suggests DIABETES MELLITUS per A.D.A. criteria. Potassium [Moles/Vol] 3.7 mmol/L 3.5-5.1 [facility] Protein [Mass/Vol] 5.9 g/dL 6.4-8.2 [facility] Sodium [Moles/Vol] 140 mmol/L 136-145 [facility] WBC (Bld) [#/Vol] 9.4 10*3/uL 4.4-11.0 [facility] Blood erythrocytes count (nu mber/volume)Ordered By: Walter Becker on 05-06-2023 RBC (Bld) [#/Vol] 4.49 10*6/uL 4.6-6.2 [facility] Blood hemoglobin measurement (mass/volume)Ordered By: Walter Becker on 05-06-2023 Hemoglobin (Bld) [Mass/Vol] 12.0 g/dL 13.0-16. 5 [facility] Blood platelet mean volumeOr dered By: Walter Becker on 05-06-2023 Platelet mean volume (Bld) [Entitic vol] 9.5 fL 6.2-12.0 [facility] Determination of erythrocyte mean corpuscular volume (MCV)Ordered By: Walter Becker on 05-06-2023 MCV (RBC) [Entitic vol] 85.7 fL 80-94 [facility] Hematocrit Auto (Bld) [Volum e fraction]Ordered By: Walter Becker on 05-06-2023 Hematocrit (Bld) [Volume fraction] 38.5 % 40-54 [facility] INR in Blood by Coagulation assayOrdered By: Walter Becker on 05-06-2023 INR Coag (Bld) [Relative time] 2.5 {INR} [facility] Laboratory - Chemistry and C hemistry - challengeOrdered By: Walter Becker on 05-06-2023 ALP [Catalytic activity/Vol] 93 U/L 45-117 [facility] ALT [Catalytic activity/Vol] 23 U/L 16-61 [facility] CO2 [Moles/Vol] 29.0 mmol/L 21.0-32.0 [facility] Globulin (S) [Mass/Vol] 2.9 g/dL 2.2-4.2 [facility] Urea nitrogen/Creatinine [Mass ratio] 25.8 mg/mg 10-20 [facility] Laboratory - CoagulationOrde red By: Walter Becker on 05-06-2023 PT Coag (PPP) [Time] 27.5 s 11.7-14.9 [facility] Laboratory - Hematology and Cell countsOrdered By: Walter Becker on 05-06-2023 Erythrocyte distribution width (RBC) [Entitic vol] 44.4 fL 35.1-43.9 [facility] Erythrocyte distribution width (RBC) [Ratio] 14.2 % 11.6-14.6 [facility] MCH (RBC) [Entitic mass] 26.7 pg 27.0-32.0 [facility] MCHC Auto (RBC) [Mass/Vol]Or dered By: Walter Becker on 05-06-2023 MCHC (RBC) [Mass/Vol] 31.2 g/dL 32-36 [facility] No Panel InformationOrdered By: Walter Becker on 05-06-2023 Estimated GFR (MDRD) Amer 102 mL/min >60 [facility] Comment on above: GFR Calc Estimated GFR (MDRD) Non-Af Amer 84 mL/min >60 [facility] Comment on above: Non- GFR Calc 26.7 pg 27.0-32.0 [facility] 14.2 % 11.6-14.6 [facility] 44.4 fl 35.1-43.9 [facility] 27.5 SECONDS 11.7-14.9 [facility] 84 mL/min >60 [facility] 102 mL/min >60 [facility] 25.8 RATIO 10- [facility] 2.9 g/dL 2.2-4.2 [facility] 93 U/L 45-117 [facility] 23 U/L 16-61 [facility] 29.0 mmol/L 21.0-32.0 [facility] Platelets bldOrdered By: Cyrstal Becker on 05-06-2023 Platelets (Bld) [#/Vol] 238 10*3/uL 150-450 [facility] Serum or plasma albumin antoien urement (mass/volume)Ordered By: Walter Becker on 05-06-2023 Albumin [Mass/Vol] 3.0 g/dL 3.2-5.0 [facility] Serum or plasma albumin/glob ulin mass ratioOrdered By: Walter Becker on 05-06-2023 Albumin/Globulin [Mass ratio] 1.0 {ratio} 0.9-2.4 [facility] Serum or plasma calcium antoine urement (mass/volume)Ordered By: Walter Becker on 05-06-2023 Calcium [Mass/Vol] 9.1 mg/dL 8.5-10.1 [facility] Serum or plasma creatinine m easurement (mass/volume)Ordered By: Walter Becker on 05-06-2023 Creatinine [Mass/Vol] 0.93 mg/dL 0.70-1.30 [facility] Comment on above: The validity of the calculated GFR & GFRAA in patients over 70 years has not been determined. Clinical correlation is essential. Serum or plasma urea nitroge n measurement (mass/volume)Ordered By: Walter Becker on 05-06-2023 Urea nitrogen [Mass/Vol] 24 mg/dL 7-18 [facility] Thin prep Papanicolaou smear with manual screeningOrdered By: Walter Becker on 05-06-2023 Thin prep Papanicolaou smear with manual screening 10 U/L 15-37 [facility] Thin prep Papanicolaou smear with manual screening 5 5-15 [facility] Laboratory - CoagulationOrde red By: Walter Becker on 04-29-2023 INR Coag (Bld) [Relative time] 2.8 {INR} [facility] Comment on above: Critical Value > 4.0 No Panel InformationOrdered By: Walter Becker on 04-29-2023 2.8 [facility] Whole blood prothrombin time Ordered By: Walter Becker on 04-29-2023 PT Coag (Bld) [Time] 29.6 s 11.7-14.9 [facility] Laboratory - CoagulationOrde red By: Walter Becker on 04-15-2023 INR Coag (Bld) [Relative time] 2.5 {INR} [facility] Comment on above: Critical Value > 4.0 No Panel InformationOrdered By: Walter Becker on 04-15-2023 2.5 [facility] Whole blood prothrombin time Ordered By: Walter Becker on 04-15-2023 PT Coag (Bld) [Time] 27.3 s 11.7-14.9 [facility] Basophil percentageOrdered B y: Walter Becker on 04-09-2023 Basophil percentage 115 mg/dL 74-106 [facility] Basophil percentage 5.8 g/dL 6.4-8.2 [facility] [facility] Basophil percentage 0.40 mg/dL 0.20-1.00 [facility] Basophil percentage 141 mmol/L 136-145 [facility] Basophil percentage 3.9 mmol/L 3.5-5.1 [facility] Basophil percentage 106 mmol/L 98-107 [facility] Basophils (Bld) [#/Vol] 10.2 10*3/uL 4.4-11.0 [facility] Bilirubin [Mass/Vol] 0.40 mg/dL 0.20-1.00 [facility] Comment on above: For patients on eltr ombopag therapy, use of Dimension [place] TBIL is not recommended. Chloride [Moles/Vol] 106 mmol/L 98-107 [facility] Glucose [Mass/Vol] 115 mg/dL 74-106 [facility] Comment on above: Fasting Glucose resu lt from 100 to 125 mg/dL suggests IMPAIRED HOMEOSTASIS per A.D.A. criteria. Potassium [Moles/Vol] 3.9 mmol/L 3.5-5.1 [facility] Protein [Mass/Vol] 5.8 g/dL 6.4-8.2 [facility] Sodium [Moles/Vol] 141 mmol/L 136-145 [facility] WBC (Bld) [#/Vol] 10.2 10*3/uL 4.4-11.0 [facility] Blood erythrocytes count (nu mber/volume)Ordered By: Walter Becker on 04-09-2023 RBC (Bld) [#/Vol] 4.16 10*6/uL 4.6-6.2 [facility] Blood hemoglobin measurement (mass/volume)Ordered By: Walter Becker on 04-09-2023 Hemoglobin (Bld) [Mass/Vol] 11.3 g/dL 13.0-16. 5 [facility] Blood platelet mean volumeOr dered By: Walter Becker on 04-09-2023 Platelet mean volume (Bld) [Entitic vol] 9.4 fL 6.2-12.0 [facility] Determination of erythrocyte mean corpuscular volume (MCV)Ordered By: Walter Becker on 04-09-2023 MCV (RBC) [Entitic vol] 86.5 fL 80-94 [facility] Hematocrit Auto (Bld) [Volum e fraction]Ordered By: Walter Becker on 04-09-2023 Hematocrit (Bld) [Volume fraction] 36.0 % 40-54 [facility] - Chemistry and C hemistry - challengeOrdered By: Walter Becker on 04-09-2023 ALP [Catalytic activity/Vol] 105 U/L 45-117 [facility] ALT [Catalytic activity/Vol] 22 U/L 16-61 [facility] CO2 [Moles/Vol] 31.0 mmol/L 21.0-32.0 [facility] Globulin (S) [Mass/Vol] 2.9 g/dL 2.2-4.2 [facility] Urea nitrogen/Creatinine [Mass ratio] 29.9 mg/mg 10-20 [facility] - Hematology and Cell countsOrdered By: Walter Becker on 04-09-2023 Erythrocyte distribution width (RBC) [Entitic vol] 46.8 fL 35.1-43.9 [facility] Erythrocyte distribution width (RBC) [Ratio] 14.6 % 11.6-14.6 [facility] MCH (RBC) [Entitic mass] 27.2 pg 27.0-32.0 [facility] MCHC Auto (RBC) [Mass/Vol]Or dered By: Walter Becker on 04-09-2023 MCHC (RBC) [Mass/Vol] 31.4 g/dL 32-36 [facility] No Panel InformationOrdered By: Walter Becker on 04-09-2023 Estimated GFR (MDRD) Amer 101 mL/min >60 [facility] Comment on above: GFR Calc Estimated GFR (MDRD) Non-Af Amer 84 mL/min >60 [facility] Comment on above: Non- GFR Calc 27.2 pg 27.0-32.0 [facility] 14.6 % 11.6-14.6 [facility] 46.8 fl 35.1-43.9 [facility] 84 mL/min >60 [facility] 101 mL/min >60 [facility] 29.9 RATIO 10-20 [facility] 2.9 g/dL 2.2-4.2 [facility] 105 U/L 45-117 [facility] 22 U/L 16-61 [facility] 31.0 mmol/L 21.0-32.0 [facility] Platelets bldOrdered By: Crystal Becker on 04-09-2023 Platelets (Bld) [#/Vol] 229 10*3/uL 150-450 [facility] Serum or plasma albumin antoine urement (mass/volume)Ordered By: Walter Becker on 04-09-2023 Albumin [Mass/Vol] 2.9 g/dL 3.2-5.0 [facility] Serum or plasma albumin/glob ulin mass ratioOrdered By: Walter Becker on 04-09-2023 Albumin/Globulin [Mass ratio] 1.0 {ratio} 0.9-2.4 [facility] Serum or plasma calcium antoine urement (mass/volume)Ordered By: Walter Becker on 04-09-2023 Calcium [Mass/Vol] 9.0 mg/dL 8.5-10.1 [facility] Serum or plasma creatinine m easurement (mass/volume)Ordered By: Walter Becker on 04-09-2023 Creatinine [Mass/Vol] 0.94 mg/dL 0.70-1.30 [facility] Comment on above: The validity of the calculated GFR & GFRAA in patients over 70 years has not been determined. Clinical correlation is essential. Serum or plasma urea nitroge n measurement (mass/volume)Ordered By: Walter Becker on 04-09-2023 Urea nitrogen [Mass/Vol] 28 mg/dL 7-18 [facility] Thin prep Papanicolaou smear with manual screeningOrdered By: Walter Becker on 04-09-2023 Thin prep Papanicolaou smear with manual screening 7 U/L 15-37 [facility] Thin prep Papanicolaou smear with manual screening 4 5-15 [facility] - CoagulationOrde red By: Walter Becker on 04-08-2023 INR Coag (Bld) [Relative time] 2.4 {INR} [facility] Comment on above: Critical Value > 4.0 No Panel InformationOrdered By: Walter Becker on 04-08-2023 2.4 [facility] Whole blood prothrombin time Ordered By: Walter Becker on 04-08-2023 PT Coag (Bld) [Time] 25.9 s 11.7-14.9 [facility] - CoagulationOrde red By: Walter Becker on 04-01-2023 INR Coag (Bld) [Relative time] 1.9 {INR} [facility] Comment on above: Critical Value > 4.0 No Panel InformationOrdered By: Walter Becker on 04-01-2023 1.9 [facility] Whole blood prothrombin time Ordered By: Walter Becker on 04-01-2023 PT Coag (Bld) [Time] 21.0 s 11.7-14.9 [facility] - CoagulationOrde red By: Walter Becker on 03-25-2023 INR Coag (Bld) [Relative time] 1.9 {INR} [facility] Comment on above: Critical Value > 4.0 No Panel InformationOrdered By: Walter Becker on 03-25-2023 1.9 [facility] Whole blood prothrombin time Ordered By: Walter Becker on 03-25-2023 PT Coag (Bld) [Time] 21.1 s 11.7-14.9 [facility] INR in Blood by Coagulation assayOrdered By: Walter Becker on 03-11-2023 INR Coag (Bld) [Relative time] 2.4 {INR} [facility] - CoagulationOrde red By: Walter Becker on 03-11-2023 PT Coag (PPP) [Time] 26.6 s 11.7-14.9 [facility] No Panel InformationOrdered By: Walter Becker on 03-11-2023 26.6 SECONDS 11.7-14.9 [facility] Whole blood hemoglobin A1c/t otal hemoglobin ratio (mass fraction)Ordered By: Walter Becker on 03-11-2023 HbA1c (Bld) [Mass fraction] 5.5 % 3.8-5.6 [facility] Comment on above: Normal < 5.7 % Predi abetic 5.7 - 6.4 % Diabetic >or= 6.5 % Please note range changes. Basophil percentageOrdered B y: Walter Bekcer on 03-04-2023 Basophil percentage 114 mg/dL 74-106 [facility] Basophil percentage 5.8 g/dL 6.4-8.2 [facility] Basophil percentage 0.30 mg/dL 0.20-1.00 [facility] Basophil percentage 139 mmol/L 136-145 [facility] Basophil percentage 4.0 mmol/L 3.5-5.1 [facility] Basophil percentage 106 mmol/L 98-107 [facility] Bilirubin [Mass/Vol] 0.30 mg/dL 0.20-1.00 [facility] Comment on above: For patients on eltr ombopag therapy, use of Dimension [place] TBIL is not recommended. Chloride [Moles/Vol] 106 mmol/L 98-107 [facility] Glucose [Mass/Vol] 114 mg/dL 74-106 [facility] Comment on above: Fasting Glucose resu lt from 100 to 125 mg/dL suggests IMPAIRED HOMEOSTASIS per A.D.A. criteria. Potassium [Moles/Vol] 4.0 mmol/L 3.5-5.1 [facility] Protein [Mass/Vol] 5.8 g/dL 6.4-8.2 [facility] Sodium [Moles/Vol] 139 mmol/L 136-145 [facility] Blood hemoglobin measurement (mass/volume)Ordered By: Walter Becker on 03-04-2023 Hemoglobin (Bld) [Mass/Vol] 10.6 g/dL 13.0-16. 5 [facility] Hematocrit Auto (Bld) [Volum e fraction]Ordered By: Walter Becker on 03-04-2023 Hematocrit (Bld) [Volume fraction] 35.7 % 40-54 [facility] INR in Blood by Coagulation assayOrdered By: Walter Becker on 03-04-2023 INR Coag (Bld) [Relative time] 2.3 {INR} [facility] - Chemistry and C hemistry - challengeOrdered By: Walter Becker on 03-04-2023 ALP [Catalytic activity/Vol] 92 U/L - [facility] ALT [Catalytic activity/Vol] 25 U/L - [facility] CO2 [Moles/Vol] 28.0 mmol/L 21.0-32.0 [facility] Globulin (S) [Mass/Vol] 3.0 g/dL 2.2-4.2 [facility] Urea nitrogen/Creatinine [Mass ratio] 33.0 mg/mg 05-03 [facility] - CoagulationOrde red By: Walter Becker on 03-04-2023 PT Coag (PPP) [Time] 25.8 s 11.7-14.9 [facility] No Panel InformationOrdered By: Walter Becker on 03-04-2023 Estimated GFR (MDRD) Amer 88 mL/min >60 [facility] Comment on above: GFR Calc Estimated GFR (MDRD) Non-Af Amer 72 mL/min >60 [facility] Comment on above: Non- GFR Calc 25.8 SECONDS 11.7-14.9 [facility] 72 mL/min >60 [facility] 88 mL/min >60 [facility] 33.0 RATIO - [facility] 3.0 g/dL 2.2-4.2 [facility] 92 U/L - [facility] 25 U/L - [facility] 28.0 mmol/L 21.0-32.0 [facility] Serum or plasma albumin antoine urement (mass/volume)Ordered By: Walter Becker on 03-04-2023 Albumin [Mass/Vol] 2.8 g/dL 3.2-5.0 [facility] Serum or plasma albumin/glob ulin mass ratioOrdered By: Walter Becker on 03-04-2023 Albumin/Globulin [Mass ratio] 0.9 {ratio} 0.9-2.4 [facility] Serum or plasma calcium antoine urement (mass/volume)Ordered By: Walter Becker on 03-04-2023 Calcium [Mass/Vol] 9.1 mg/dL 8.5-10.1 [facility] Serum or plasma creatinine m easurement (mass/volume)Ordered By: Walter Becker on 03-04-2023 Creatinine [Mass/Vol] 1.06 mg/dL 0.70-1.30 [facility] Comment on above: The validity of the calculated GFR & GFRAA in patients over 70 years has not been determined. Clinical correlation is essential. Serum or plasma urea nitroge n measurement (mass/volume)Ordered By: Walter Becker on 03-04-2023 Urea nitrogen [Mass/Vol] 35 mg/dL 7-18 [facility] Thin prep Papanicolaou smear with manual screeningOrdered By: Walter Becker on 03-04-2023 Thin prep Papanicolaou smear with manual screening 12 U/L 15-37 [facility] Thin prep Papanicolaou smear with manual screening 5 5-15 [facility] - CoagulationOrde red By: Walter Becker on 03-01-2023 INR Coag (Bld) [Relative time] 2.2 {INR} [facility] Comment on above: Critical Value > 4.0 No Panel InformationOrdered By: Walter Becker on 03-01-2023 2.2 [facility] Whole blood prothrombin time Ordered By: Walter Becker on 03-01-2023 PT Coag (Bld) [Time] 24.4 s 11.7-14.9 [facility] Blood hemoglobin measurement (mass/volume)Ordered By: Walter Becker on 02-25-2023 Hemoglobin (Bld) [Mass/Vol] 11.0 g/dL 13.0-16. 5 [facility] Hematocrit Auto (Bld) [Volum e fraction]Ordered By: Walter Becker on 02-25-2023 Hematocrit (Bld) [Volume fraction] 36.8 % 40-54 [facility] INR in Blood by Coagulation assayOrdered By: Walter Becker on 02-25-2023 INR Coag (Bld) [Relative time] 2.6 {INR} [facility] - CoagulationOrde red By: Walter Becker on 02-25-2023 PT Coag (PPP) [Time] 28.0 s 11.7-14.9 [facility] No Panel InformationOrdered By: Walter Becker on 02-25-2023 28.0 SECONDS 11.7-14.9 [facility] - CoagulationOrde red By: Walter Becker on 02-22-2023 INR Coag (Bld) [Relative time] 2.6 {INR} [facility] Comment on above: Critical Value > 4.0 No Panel InformationOrdered By: Walter Becker on 02-22-2023 2.6 [facility] Whole blood prothrombin time Ordered By: Walter Becker on 02-22-2023 PT Coag (Bld) [Time] 28.4 s 11.7-14.9 [facility] No Panel InformationOrdered By: Walter Becker on 02-20-2023 2.9 [facility] Whole blood prothrombin time Ordered By: Walter Becker on 02-20-2023 PT Coag (Bld) [Time] 30.7 s 11.7-14.9 [facility] Blood hemoglobin measurement (mass/volume)Ordered By: Walter Becker on 02-18-2023 Hemoglobin (Bld) [Mass/Vol] 8.8 g/dL 13.0-16. 5 [facility] Hematocrit Auto (Bld) [Volum e fraction]Ordered By: Walter Becker on 02-18-2023 Hematocrit (Bld) [Volume fraction] 28.2 % 40-54 [facility] INR in Blood by Coagulation assayOrdered By: Walter Becker on 02-18-2023 INR Coag (Bld) [Relative time] 2.8 {INR} [facility] No Panel InformationOrdered By: Walter Becker on 02-18-2023 29.5 SECONDS 11.7-14.9 [facility] No Panel InformationOrdered By: Walter Becker on 02-14-2023 2.2 [facility] Whole blood prothrombin time Ordered By: Walter Becker on 02-14-2023 PT Coag (Bld) [Time] 24.3 s 11.7-14.9 [facility] Absolute lymphocyte countOrd ered By: Gabriel Giraldo on 02-13-2023 Lymphocytes Auto (Unsp spec) [#/Vol] 0.84 10*3/uL 0.83-4.51 [facility] Basophil percentageOrdered B y: Gabriel Giraldo on 02-13-2023 Basophils (Bld) [#/Vol] 5.4 10*3/uL 4.4-11.0 [facility] Basophils (Bld) [#/Vol] 3.6 10*3/uL 2.0-7.7 [facility] Basophils/100 WBC (Bld) 67.5 % 47-70 [facility] Basophils/100 WBC (Bld) 4.1 % 0-5 [facility] Basophils/100 WBC (Bld) 0.4 % 0-1 [facility] Blood erythrocytes count (nu mber/volume)Ordered By: Gabriel Giraldo on 02-13-2023 RBC (Bld) [#/Vol] 2.76 10*6/uL 4.6-6.2 [facility] Blood hemoglobin measurement (mass/volume)Ordered By: Gabriel Giraldo on 02-13-2023 Hemoglobin (Bld) [Mass/Vol] 7.5 g/dL 13.0-16. 5 [facility] Blood lymphocytes/100 leukoc ytesOrdered By: Gabriel Giraldo on 02-13-2023 Lymphocytes/100 WBC (Bld) 15.7 % 19-41 [facility] Blood monocytes/100 leukocyt esOrdered By: Gabriel Giraldo on 02-13-2023 Monocytes/100 WBC (Bld) 11.2 % 0-10 [facility] Blood platelet mean volumeOr dered By: Gabriel Giraldo on 02-13-2023 Platelet mean volume (Bld) [Entitic vol] 9.2 fL 6.2-12.0 [facility] COVID-19 virus antigen assay Ordered By: Gabriel Giraldo on 02-13-2023 SARS-CoV-2 (COVID-19) Ag IA.rapid Ql (Resp) [facility] SARS-CoV-2 (COVID-19) Ag IA.rapid Ql (Resp) [facility] Determination of erythrocyte mean corpuscular volume (MCV)Ordered By: Gabriel Giraldo on 02-13-2023 MCV (RBC) [Entitic vol] 88.4 fL 80-94 [facility] Glucose Glucometer (BldC) [M ass/Vol]Ordered By: Gabriel Giraldo on 02-13-2023 Glucose [Mass/Vol] 146 mg/dL 74-106 [facility] Hematocrit Auto (Bld) [Volum e fraction]Ordered By: Gabriel Giraldo on 02-13-2023 Hematocrit (Bld) [Volume fraction] 24.4 % 40-54 [facility] MCHC Auto (RBC) [Mass/Vol]Or dered By: Gabriel Giraldo on 02-13-2023 MCHC (RBC) [Mass/Vol] 30.7 g/dL 32-36 [facility] No Panel InformationOrdered By: Gabriel Giraldo on 02-13-2023 27.2 pg 27.0-32.0 [facility] 16.6 % 11.6-14.6 [facility] 54.5 fl 35.1-43.9 [facility] 1.100 % 0.0-0.9 [facility] 0.9 % 0-5 [facility] Platelets bldOrdered By: Elis Giraldo on 02-13-2023 Platelets (Bld) [#/Vol] 194 10*3/uL 150-450 [facility] INR in Blood by Coagulation assayOrdered By: Gabriel Giraldo on 02-12-2023 INR Coag (Bld) [Relative time] 1.6 {INR} [facility] No Panel InformationOrdered By: Smith Leija on 02-12-2023 No growth in 5 days. [facility] No growth in 5 days. [facility] No Panel InformationOrdered By: Gabriel Giraldo on 02-12-2023 19.3 SECONDS 11.7-14.9 [facility] Basophil percentageOrdered B y: Dandy Sauer on 02-11-2023 Basophil percentage 2.2 mmol/L 0.4-2.0 [facility] Basophil percentage 2.8 mmol/L 0.4-2.0 [facility] Basophil percentageOrdered B y: Walter Becker on 02-11-2023 Basophil percentage 168 mg/dL 74-106 [facility] Basophil percentage 135 mmol/L 136-145 [facility] Basophil percentage 3.7 mmol/L 3.5-5.1 [facility] Basophil percentage 103 mmol/L 98-107 [facility] Basophils (Bld) [#/Vol] 10.2 10*3/uL 4.4-11.0 [facility] Blood erythrocytes count (nu mber/volume)Ordered By: Walter Becker on 02-11-2023 RBC (Bld) [#/Vol] 3.16 10*6/uL 4.6-6.2 [facility] Blood hemoglobin measurement (mass/volume)Ordered By: Walter Becker on 02-11-2023 Hemoglobin (Bld) [Mass/Vol] 8.7 g/dL 13.0-16. 5 [facility] Blood platelet mean volumeOr dered By: Walter Becker on 02-11-2023 Platelet mean volume (Bld) [Entitic vol] 9.3 fL 6.2-12.0 [facility] Determination of erythrocyte mean corpuscular volume (MCV)Ordered By: Walter Becker on 02-11-2023 MCV (RBC) [Entitic vol] 87.0 fL 80-94 [facility] Hematocrit Auto (Bld) [Volum e fraction]Ordered By: Walter Becker on 02-11-2023 Hematocrit (Bld) [Volume fraction] 27.5 % 40-54 [facility] INR in Blood by Coagulation assayOrdered By: Walter Becker on 02-11-2023 INR Coag (Bld) [Relative time] 1.5 {INR} [facility] MCHC Auto (RBC) [Mass/Vol]Or dered By: Walter Becker on 02-11-2023 MCHC (RBC) [Mass/Vol] 31.6 g/dL 32-36 [facility] No Panel InformationOrdered By: Walter Becker on 02-11-2023 27.5 pg 27.0-32.0 [facility] 17.3 % 11.6-14.6 [facility] 55.7 fl 35.1-43.9 [facility] 18.2 SECONDS 11.7-14.9 [facility] 67 mL/min >60 [facility] 81 mL/min >60 [facility] 21.1 RATIO 10-20 [facility] 27.0 mmol/L 21.0-32.0 [facility] Platelets bldOrdered By: Crystal Becker on 02-11-2023 Platelets (Bld) [#/Vol] 200 10*3/uL 150-450 [facility] Serum or plasma calcium antoine urement (mass/volume)Ordered By: Walter Becker on 02-11-2023 Calcium [Mass/Vol] 8.7 mg/dL 8.5-10.1 [facility] Serum or plasma creatinine m easurement (mass/volume)Ordered By: Walter Becker on 02-11-2023 Creatinine [Mass/Vol] 1.14 mg/dL 0.70-1.30 [facility] Serum or plasma urea nitroge n measurement (mass/volume)Ordered By: Walter Becker on 02-11-2023 Urea nitrogen [Mass/Vol] 24 mg/dL 7-18 [facility] Thin prep Papanicolaou smear with manual screeningOrdered By: Walter Becker on 02-11-2023 Thin prep Papanicolaou smear with manual screening 5 5-15 [facility] Absolute lymphocyte countOrd ered By: Geremias Carey on 02-10-2023 Lymphocytes Auto (Unsp spec) [#/Vol] 0.46 10*3/uL 0.83-4.51 [facility] Bacteria identified Cx Nom ( U)Ordered By: Geremias Carey on 02-10-2023 Culture, urine Klebsiella pneumonia e sp pneum [facility] Culture, urine Klebsiella pneumonia e sp pneum [facility] Basophil percentageOrdered B y: Geremias Carey on 02-10-2023 Basophil percentage 1.9 mmol/L 0.4-2.0 [facility] Basophil percentage 25-50 SEEN /hpf 0-5 [facility] Basophil percentage 158 mg/dL 74-106 [facility] Basophil percentage 5.6 g/dL 6.4-8.2 [facility] Basophil percentage 0.90 mg/dL 0.20-1.00 [facility] Basophil percentage 136 mmol/L 136-145 [facility] Basophil percentage 3.7 mmol/L 3.5-5.1 [facility] Basophil percentage 103 mmol/L 98-107 [facility] Basophils (Bld) [#/Vol] 10.8 10*3/uL 4.4-11.0 [facility] Basophils (Bld) [#/Vol] 9.2 10*3/uL 2.0-7.7 [facility] Basophils/100 WBC (Bld) 84.8 % 47-70 [facility] Basophils/100 WBC (Bld) 0.2 % 0-5 [facility] Basophils/100 WBC (Bld) 0.1 % 0-1 [facility] Bilirubin Test strip Ql (U)O rdered By: Geremias Carey on 02-10-2023 Bilirubin Ql (U) Negative Negative [facility] Blood erythrocytes count (nu mber/volume)Ordered By: Geremias Carey on 02-10-2023 RBC (Bld) [#/Vol] 3.20 10*6/uL 4.6-6.2 [facility] Blood hemoglobin measurement (mass/volume)Ordered By: Geremias Carey on 02-10-2023 Hemoglobin (Bld) [Mass/Vol] 8.8 g/dL 13.0-16. 5 [facility] Blood lymphocytes/100 leukoc ytesOrdered By: Geremias Carey on 02-10-2023 Lymphocytes/100 WBC (Bld) 4.3 % 19-41 [facility] Blood manual differential co mment interpretation (narrative result)Ordered By: Geremias Carey on 02-10-2023 Manual differential comment Ori (Bld) [Interp] SCANNED [facility] Blood monocytes/100 leukocyt esOrdered By: Geremias Carey on 02-10-2023 Monocytes/100 WBC (Bld) 9.8 % 0-10 [facility] Blood platelet mean volumeOr dered By: Geremias Carey on 02-10-2023 Platelet mean volume (Bld) [Entitic vol] 9.3 fL 6.2-12.0 [facility] Determination of erythrocyte mean corpuscular volume (MCV)Ordered By: Geremias Carey on 02-10-2023 MCV (RBC) [Entitic vol] 87.8 fL 80-94 [facility] Direct bilirubinOrdered By: Geremias Carey on 02-10-2023 Bilirubin.direct [Mass/Vol] 0.43 mg/dL 0.00-0.3 0 [facility] Hematocrit Auto (Bld) [Volum e fraction]Ordered By: Geremias Carey on 02-10-2023 Hematocrit (Bld) [Volume fraction] 28.1 % 40-54 [facility] INR in Blood by Coagulation assayOrdered By: Geremias Carey on 02-10-2023 INR Coag (Bld) [Relative time] 1.4 {INR} [facility] Influenza virus A and B and SARS-CoV-2 (COVID-19) Ag panel - Upper respiratory specimOrdered By: Geremias Carey on 02-10-2023 SARS-CoV-2 (COVID-19) RNA ANGELY+probe Ql (Resp) [facility] SARS-CoV-2 (COVID-19) RNA ANGELY+probe Ql (Resp) [facility] Ketones Test strip Ql (U)Ord ered By: Geremias Carey on 02-10-2023 Ketones Ql (U) 5 mg/dl Negative [facility] MCHC Auto (RBC) [Mass/Vol]Or dered By: Geremias Carey on 02-10-2023 MCHC (RBC) [Mass/Vol] 31.3 g/dL 32-36 [facility] Mucus LM Ql (Urine sed)Order ed By: Geremias Carey on 02-10-2023 Mucus Ql (Urine sed) 0 SEEN /hpf [facility] Nitrite Test strip Ql (U)Ord ered By: Geremias Carey on 02-10-2023 Nitrite Ql (U) Negative Negative [facility] No Panel InformationOrdered By: Geremias Carey on 02-10-2023 GNR lactose shoe parts caser [facility] GNR lactose shoe parts caser [facility] 27.5 pg 27.0-32.0 [facility] 17.3 % 11.6-14.6 [facility] 55.2 fl 35.1-43.9 [facility] 0.800 % 0.0-0.9 [facility] 0 % 0-5 [facility] 17.5 SECONDS 11.7-14.9 [facility] 42.1 Seconds 24.1-36.2 [facility] 70 mL/min >60 [facility] 85 mL/min >60 [facility] 66.18 ml/min [facility] 23.9 RATIO 10-20 [facility] 3.3 g/dL 2.2-4.2 [facility] 100 U/L 45-117 [facility] 18 U/L 16-61 [facility] 24.0 mmol/L 21.0-32.0 [facility] Platelets bldOrdered By: Luis Enrique Carey on 02-10-2023 Platelets (Bld) [#/Vol] 189 10*3/uL 150-450 [facility] Protein Test strip Ql (U)Ord ered By: Geremias Carey on 02-10-2023 Protein Ql (U) 100 mg/dl Negative [facility] Serum or plasma albumin antoine urement (mass/volume)Ordered By: Geremias Carey on 02-10-2023 Albumin [Mass/Vol] 2.3 g/dL 3.2-5.0 [facility] Serum or plasma calcium antoine urement (mass/volume)Ordered By: Geremias Carey on 02-10-2023 Calcium [Mass/Vol] 8.3 mg/dL 8.5-10.1 [facility] Serum or plasma creatinine m easurement (mass/volume)Ordered By: Geremias Carey on 02-10-2023 Creatinine [Mass/Vol] 1.09 mg/dL 0.70-1.30 [facility] Serum or plasma urea nitroge n measurement (mass/volume)Ordered By: Geremias Carey on 02-10-2023 Urea nitrogen [Mass/Vol] 26 mg/dL 7-18 [facility] Serum procalcitonin measurem entOrdered By: Geremias Carey on 02-10-2023 Procalcitonin [Mass/Vol] 1.43 ng/mL 0.00-0.09 [facility] Squamous epithelial cells de tection in urine sediment by light microscopyOrdered By: Geremias Carey on 02-10-2023 Epithelial cells.squamous LM Ql (Urine sed) 0 SEEN /hpf 0-5 [facility] Thin prep Papanicolaou smear with manual screeningOrdered By: Geremias Craey on 02-10-2023 Thin prep Papanicolaou smear with manual screening 10 U/L 15-37 [facility] Thin prep Papanicolaou smear with manual screening 9 5-15 [facility] Urine blood detectionOrdered By: Geremias Carey on 02-10-2023 RBC Ql (U) 250 /ul Negative [facility] RBC Ql (U) 25-50 SEEN /hpf 0-5 [facility] Urine clarityOrdered By: Luis Enrique Carey on 02-10-2023 Clarity (U) Sl. Cloudy Clear [facility] Urine color determinationOrd ered By: Geremias Carey on 02-10-2023 Color (U) Yellow Yellow [facility] Urine glucose detectionOrder ed By: Geremias Carey on 02-10-2023 Glucose Ql (U) Normal mg/dl Normal [facility] Urine leukocyte esterase det ection by dipstickOrdered By: Geremias Carey on 02-10-2023 Leukocyte esterase Test strip Ql (U) 500 /ul Negative [facility] Urine pHOrdered By: Geremias torrez on 02-10-2023 pH (U) 5.0 [pH] 5.0 - 8.0 [facility] Urine sediment bacteria coun t by microscopy (number/high power field)Ordered By: Geremias Carey on 02-10-2023 Bacteria LM.HPF (Urine sed) [#/Area] 4 /[HPF] None Seen [facility] Urine specific gravity measu rementOrdered By: Geremias Carey on 02-10-2023 Specific gravity (U) [Rel density] 1.015 1.002-1.03 0 [facility] Urobilinogen Auto test strip Ql (U)Ordered By: Geremias Carey on 02-10-2023 Urobilinogen Ql (U) Normal mg/dl Normal [facility] Blood hemoglobin measurement (mass/volume)Ordered By: Walter Becker on 02-07-2023 Hemoglobin (Bld) [Mass/Vol] 8.8 g/dL 13.0-16. 5 [facility] Hematocrit Auto (Bld) [Volum e fraction]Ordered By: Walter Becker on 02-07-2023 Hematocrit (Bld) [Volume fraction] 29.0 % 40-54 [facility] COVID-19 virus antigen assay Ordered By: Caryl Mcdermott on 02-05-2023 SARS-CoV-2 (COVID-19) Ag IA.rapid Ql (Resp) [facility] SARS-CoV-2 (COVID-19) Ag IA.rapid Ql (Resp) [facility] Glucose Glucometer (BldC) [M ass/Vol]Ordered By: Caryl Mcdermott on 02-05-2023 Glucose [Mass/Vol] 163 mg/dL 74-106 [facility] Absolute lymphocyte countOrd ered By: Yisel Rendon on 02-04-2023 Lymphocytes Auto (Unsp spec) [#/Vol] 1.39 10*3/uL 0.83-4.51 [facility] Basophil percentageOrdered B y: Yisel Rendon on 02-04-2023 Basophil percentage 151 mg/dL 74-106 [facility] Basophil percentage 141 mmol/L 136-145 [facility] Basophil percentage 3.5 mmol/L 3.5-5.1 [facility] Basophil percentage 110 mmol/L 98-107 [facility] Basophils (Bld) [#/Vol] 8.1 10*3/uL 4.4-11.0 [facility] Basophils (Bld) [#/Vol] 5.8 10*3/uL 2.0-7.7 [facility] Basophils/100 WBC (Bld) 71.5 % 47-70 [facility] Basophils/100 WBC (Bld) 2.6 % 0-5 [facility] Basophils/100 WBC (Bld) 0.1 % 0-1 [facility] Blood erythrocytes count (nu mber/volume)Ordered By: Yisel Rendon on 02-04-2023 RBC (Bld) [#/Vol] 3.23 10*6/uL 4.6-6.2 [facility] Blood hemoglobin measurement (mass/volume)Ordered By: Yisel Rendon on 02-04-2023 Hemoglobin (Bld) [Mass/Vol] 8.8 g/dL 13.0-16. 5 [facility] Blood lymphocytes/100 leukoc ytesOrdered By: Yisel Rendon on 02-04-2023 Lymphocytes/100 WBC (Bld) 17.2 % 19-41 [facility] Blood monocytes/100 leukocyt esOrdered By: Yisel Rendon on 02-04-2023 Monocytes/100 WBC (Bld) 6.3 % 0-10 [facility] Blood platelet mean volumeOr dered By: Yisel Rendon on 02-04-2023 Platelet mean volume (Bld) [Entitic vol] 8.8 fL 6.2-12.0 [facility] Determination of erythrocyte mean corpuscular volume (MCV)Ordered By: Yisel Rendon on 02-04-2023 MCV (RBC) [Entitic vol] 89.5 fL 80-94 [facility] Hematocrit Auto (Bld) [Volum e fraction]Ordered By: Yisel Rendon on 02-04-2023 Hematocrit (Bld) [Volume fraction] 28.9 % 40-54 [facility] MCHC Auto (RBC) [Mass/Vol]Or dered By: Yisel Rendon on 02-04-2023 MCHC (RBC) [Mass/Vol] 30.4 g/dL 32-36 [facility] No Panel InformationOrdered By: Yisel Rendon on 02-04-2023 27.2 pg 27.0-32.0 [facility] 17.8 % 11.6-14.6 [facility] 56.6 fl 35.1-43.9 [facility] 2.300 % 0.0-0.9 [facility] 0 % 0-5 [facility] 67 mL/min >60 [facility] 81 mL/min >60 [facility] 63.83 ml/min [facility] 10.6 RATIO 10-20 [facility] 25.0 mmol/L 21.0-32.0 [facility] Platelets bldOrdered By: José Luis Rendon on 02-04-2023 Platelets (Bld) [#/Vol] 341 10*3/uL 150-450 [facility] Serum or plasma calcium antoine urement (mass/volume)Ordered By: Yisel Rendon on 02-04-2023 Calcium [Mass/Vol] 8.4 mg/dL 8.5-10.1 [facility] Serum or plasma creatinine m easurement (mass/volume)Ordered By: Yisel Rendon on 02-04-2023 Creatinine [Mass/Vol] 1.13 mg/dL 0.70-1.30 [facility] Serum or plasma urea nitroge n measurement (mass/volume)Ordered By: Yisel Rendon on 02-04-2023 Urea nitrogen [Mass/Vol] 12 mg/dL 7-18 [facility] Thin prep Papanicolaou smear with manual screeningOrdered By: Yisel Rendon on 02-04-2023 Thin prep Papanicolaou smear with manual screening 6 5-15 [facility] Blood band neutrophil count as percentage of total leukocytesOrdered By: Yisel Rendon on 01-31-2023 Band form neutrophils/100 WBC (Bld) 3 % 0-5 [facility] Blood eosinophils/100 leukoc ytesOrdered By: Yisel Rendon on 01-31-2023 Eosinophils/100 WBC (Bld) 2 % 0-5 [facility] Blood lymphocytes/100 leukoc ytesOrdered By: Yisel Rendon on 01-31-2023 Lymphocytes/100 WBC (Bld) 22 % 19-41 [facility] Blood metamyelocytes/100 yolis kocytesOrdered By: Yisel Rendon on 01-31-2023 Metamyelocytes/100 WBC (Bld) 1 % 0-1 [facility] Blood monocytes/100 leukocyt esOrdered By: Yisel Rendon on 01-31-2023 Monocytes/100 WBC (Bld) 5 % 0-10 [facility] Blood platelet adequacy dete ction by light microscopyOrdered By: Yisel Rendon on 01-31-2023 Platelets LM Ql (Bld) ADEQUATE ADEQ [facility] Blood polychromasia detectio n by light microscopyOrdered By: Yisel Rendon on 01-31-2023 Polychromasia LM Ql (Bld) RARE [facility] Blood segmented neutrophils/ 100 leukocytesOrdered By: Yisel Rendon on 07-20-2023 Segmented neutrophils/100 WBC (Bld) 64 % 47-70 [facility] No Panel InformationOrdered By: Yisel Rendon on 01-31-2023 3 % 0-0 [facility] Review by pathologistOrdered By: Yisel Rendon on 01-31-2023 Pathologist review Ori (Unsp spec) [Interp] Reviewed [facility] Total cell countOrdered By: Yisel Rendon on 01-31-2023 Cells counted Molgen (Bld/Tiss) [#] 100 MANUAL DIFF [facility] Basophil percentageOrdered B y: Yisel Rendon on 01-30-2023 Basophil percentage 148 U/L 87-241 [facility] Blood manual differential co mment interpretation (narrative result)Ordered By: Yisel Rendon on 01-30-2023 Manual differential comment Ori (Bld) [Interp] SCANNED [facility] Hemoglobin in reticulocytes (mass per reticulocyte)Ordered By: Yisel Rendon on 01-30-2023 Hemoglobin (Reticulocytes) [Entitic mass] 22.8 pg 30-35 [facility] Hypochromatic red blood cell detectionOrdered By: Yisel Rendon on 01-30-2023 Hypochromia Ql (Bld) 1+ [facility] Iron measurement (mass/mass) Ordered By: Yisel Rendon on 01-30-2023 Iron (Unsp spec) [Mass/Mass] 28 ug/dL 65-175 [facility] No Panel InformationOrdered By: Yisel Rendon on 01-30-2023 RARE % [facility] 3.53 % 0.5-1.5 [facility] 40.30 % 3.00-15.90 [facility] 635 pg/mL 211-911 [facility] 166 ug/dL 250-450 [facility] Serum or plasma ferritin hank surement (mass/volume)Ordered By: Yisel Rendon on 01-30-2023 Ferritin [Mass/Vol] 138 ng/mL 26-388 [facility] Serum or plasma folate measu rement (mass/volume)Ordered By: Yisel Rendon on 01-30-2023 Folate [Mass/Vol] 4.60 ng/mL 3.1-55.4 [facility] Serum or plasma iron saturat ion measurement (mass fraction)Ordered By: Yisel Rendon on 01-30-2023 Iron saturation [Mass fraction] 16.9 % 15.0-55.0 [facility] No Panel InformationOrdered By: Yisel Rendon on 01-29-2023 RARE [facility] Vancomycin troughOrdered By: Karen Aly on 01-29-2023 Vancomycin trough [Mass/Vol] 7.8 ug/mL 5.0-15.0 [facility] Basophil percentageOrdered B y: Karen Jermain on 01-28-2023 Basophil percentage 5.8 g/dL 6.4-8.2 [facility] Basophil percentage 0.70 mg/dL 0.20-1.00 [facility] No Panel InformationOrdered By: Karen Jermain on 01-28-2023 3.8 g/dL 2.2-4.2 [facility] 81 U/L 45-117 [facility] 85 U/L 16-61 [facility] Serum or plasma albumin antoine urement (mass/volume)Ordered By: Karen Aly on 01-28-2023 Albumin [Mass/Vol] 2.0 g/dL 3.2-5.0 [facility] Serum or plasma albumin/glob ulin mass ratioOrdered By: Karen Jermain on 01-28-2023 Albumin/Globulin [Mass ratio] 0.5 {ratio} 0.9-2.4 [facility] Thin prep Papanicolaou smear with manual screeningOrdered By: Karen Aly on 01-28-2023 Thin prep Papanicolaou smear with manual screening 49 U/L 15-37 [facility] Absolute lymphocyte countOrd ered By: Syed Allen on 01-27-2023 Lymphocytes Auto (Unsp spec) [#/Vol] 1.35 10*3/uL 0.83-4.51 [facility] Basophil percentageOrdered B y: Karen Jermain on 01-27-2023 Basophil percentage 2.6 mg/dL 2.5-4.9 [facility] Basophil percentageOrdered B y: Syed Allen on 01-27-2023 Basophils/100 WBC (Bld) 0.1 % 0-1 [facility] Bilirubin [Mass/Vol] 0.50 mg/dL 0.20-1.00 [facility] Comment on above: For patients on eltr ombopag therapy, use of Dimension [place] TBIL is not recommended. Chloride [Moles/Vol] 111 mmol/L 98-107 [facility] Eosinophils/100 WBC (Bld) 2.9 % 0-5 [facility] Glucose [Mass/Vol] 215 mg/dL 74-106 [facility] Comment on above: Glucose result great er than or equal to 200 mg/dLsuggests DIABETES MELLITUS per A.D.A. criteria. Neutrophils (Bld) [#/Vol] 8.0 10*3/uL 2.0-7.7 [facility] Neutrophils/100 WBC (Bld) 73.8 % 47-70 [facility] Potassium [Moles/Vol] 4.0 mmol/L 3.5-5.1 [facility] Protein [Mass/Vol] 5.3 g/dL 6.4-8.2 [facility] Sodium [Moles/Vol] 140 mmol/L 136-145 [facility] WBC (Bld) [#/Vol] 10.9 10*3/uL 4.4-11.0 [facility] Blood erythrocytes count (nu mber/volume)Ordered By: Syed Allen on 01-27-2023 RBC (Bld) [#/Vol] 2.91 10*6/uL 4.6-6.2 [facility] Blood hemoglobin measurement (mass/volume)Ordered By: Syed Allen on 01-27-2023 Hemoglobin (Bld) [Mass/Vol] 8.2 g/dL 13.0-16. 5 [facility] Blood lymphocytes/100 leukoc ytesOrdered By: Syed Allen on 01-27-2023 Lymphocytes/100 WBC (Bld) 12.4 % 19-41 [facility] Blood monocytes/100 leukocyt esOrdered By: Syed Allen on 01-27-2023 Monocytes/100 WBC (Bld) 8.2 % 0-10 [facility] Blood platelet mean volumeOr dered By: Syed Allen on 01-27-2023 Platelet mean volume (Bld) [Entitic vol] 9.9 fL 6.2-12.0 [facility] Determination of erythrocyte mean corpuscular volume (MCV)Ordered By: Syed Allen on 01-27-2023 MCV (RBC) [Entitic vol] 88.0 fL 80-94 [facility] Hematocrit Auto (Bld) [Volum e fraction]Ordered By: Syed Allen on 01-27-2023 Hematocrit (Bld) [Volume fraction] 25.6 % 40-54 [facility] INR in Blood by Coagulation assayOrdered By: Syed Allen on 01-27-2023 INR Coag (Bld) [Relative time] 1.6 {INR} [facility] - Chemistry and C hemistry - challengeOrdered By: Syed Allen on 01-27-2023 ALP [Catalytic activity/Vol] 78 U/L 45-117 [facility] ALT [Catalytic activity/Vol] 81 U/L 16-61 [facility] CO2 [Moles/Vol] 25.0 mmol/L 21.0-32.0 [facility] Globulin (S) [Mass/Vol] 3.5 g/dL 2.2-4.2 [facility] Lipase [Catalytic activity/Vol] 233 U/L 13-75 [facility] Comment on above: Please note:LIPASE r evised reference range effective 22. New Lipase methodology. Expected to produce lower values than the previous assay method. NEW Reference Range: 13 - 75 U/L Urea nitrogen/Creatinine [Mass ratio] 20.4 mg/mg 10-20 [facility] - CoagulationOrde red By: Syed Allen on 01-27-2023 PT Coag (PPP) [Time] 19.4 s 11.7-14.9 [facility] - Hematology and Cell countsOrdered By: Syed Allen on 01-27-2023 Erythrocyte distribution width (RBC) [Entitic vol] 49.3 fL 35.1-43.9 [facility] Erythrocyte distribution width (RBC) [Ratio] 15.5 % 11.6-14.6 [facility] Immature granulocytes/100 WBC (Bld) 2.600 % 0.0-0.9 [facility] Comment on above: IG% - Immature Granu locytes (promyelocytes, myelocytes and metamyelocytes) > 1% indicates that a LEFT SHIFT is Present. MCH (RBC) [Entitic mass] 28.2 pg 27.0-32.0 [facility] Nucleated RBC/100 WBC (Bld) [Ratio] 0.2 % 0-5 [facility] MCHC Auto (RBC) [Mass/Vol]Or dered By: Syed Allen on 01-27-2023 MCHC (RBC) [Mass/Vol] 32.0 g/dL 32-36 [facility] No Panel InformationOrdered By: Karen Jermain on 01-27-2023 Negative Negative [facility] 1.7 mg/dL 1.6-2.6 [facility] No Panel InformationOrdered By: Syed Allen on 01-27-2023 Estimated Creatinine Clearance Calc 50.80 ml/min [facility] Estimated GFR (MDRD) Amer 63 mL/min >60 [facility] Comment on above: GFR Calc Estimated GFR (MDRD) Non-Af Amer 52 mL/min >60 [facility] Comment on above: Non- GFR Calc 19.4 SECONDS 11.7-14.9 [facility] 233 U/L 13-75 [facility] Platelets bldOrdered By: Glenroy Allen on 01-27-2023 Platelets (Bld) [#/Vol] 259 10*3/uL 150-450 [facility] Serum or plasma albumin antoine urement (mass/volume)Ordered By: Syed Allen on 01-27-2023 Albumin [Mass/Vol] 1.8 g/dL 3.2-5.0 [facility] Serum or plasma albumin/glob ulin mass ratioOrdered By: Syed Allen on 01-27-2023 Albumin/Globulin [Mass ratio] 0.5 {ratio} 0.9-2.4 [facility] Serum or plasma calcium antoine urement (mass/volume)Ordered By: Syed Allen on 01-27-2023 Calcium [Mass/Vol] 8.3 mg/dL 8.5-10.1 [facility] Serum or plasma creatinine m easurement (mass/volume)Ordered By: Syed Allen on 01-27-2023 Creatinine [Mass/Vol] 1.42 mg/dL 0.70-1.30 [facility] Comment on above: The validity of the calculated GFR & GFRAA in patients over 70 years has not been determined. Clinical correlation is essential. Serum or plasma urea nitroge n measurement (mass/volume)Ordered By: Syed Allen on 01-27-2023 Urea nitrogen [Mass/Vol] 29 mg/dL 7-18 [facility] Serum procalcitonin measurem entOrdered By: Karen Jermain on 01-27-2023 Procalcitonin [Mass/Vol] 0.12 ng/mL 0.00-0.09 [facility] Thin prep Papanicolaou smear with manual screeningOrdered By: Syed Allen on 01-27-2023 Thin prep Papanicolaou smear with manual screening 68 U/L 15-37 [facility] Thin prep Papanicolaou smear with manual screening 4 5-15 [facility] Urine Legionella pneumophila antigen detectionOrdered By: Karen Aly on 01-27-2023 L. pneumophila Ag Ql (U) [facility] Absolute lymphocyte countOrd ered By: Ryan Tinoco on 01-26-2023 Lymphocytes Auto (Unsp spec) [#/Vol] 0.69 10*3/uL 0.83-4.51 [facility] Basophil percentageOrdered B y: Karen Jermain on 01-26-2023 Basophil percentage 2.4 mg/dL 2.5-4.9 [facility] Basophil percentageOrdered B y: Ryan Tinoco on 01-26-2023 Basophil percentage 235 mg/dL 74-106 [facility] Basophil percentage 143 mmol/L 136-145 [facility] Basophil percentage 3.8 mmol/L 3.5-5.1 [facility] Basophil percentage 114 mmol/L 98-107 [facility] Basophils (Bld) [#/Vol] 8.5 10*3/uL 4.4-11.0 [facility] Basophils (Bld) [#/Vol] 6.7 10*3/uL 2.0-7.7 [facility] Basophils/100 WBC (Bld) 0.1 % 0-1 [facility] Basophils/100 WBC (Bld) 78.4 % 47-70 [facility] Basophils/100 WBC (Bld) 1.6 % 0-5 [facility] Chloride [Moles/Vol] 114 mmol/L 98-107 [facility] Eosinophils/100 WBC (Bld) 1.6 % 0-5 [facility] Glucose [Mass/Vol] 235 mg/dL 74-106 [facility] Comment on above: Glucose result great er than or equal to 200 mg/dLsuggests DIABETES MELLITUS per A.D.A. criteria. Neutrophils (Bld) [#/Vol] 6.7 10*3/uL 2.0-7.7 [facility] Neutrophils/100 WBC (Bld) 78.4 % 47-70 [facility] Potassium [Moles/Vol] 3.8 mmol/L 3.5-5.1 [facility] Sodium [Moles/Vol] 143 mmol/L 136-145 [facility] WBC (Bld) [#/Vol] 8.5 10*3/uL 4.4-11.0 [facility] Blood erythrocytes count (nu mber/volume)Ordered By: Ryan Tinoco on 01-26-2023 RBC (Bld) [#/Vol] 3.06 10*6/uL 4.6-6.2 [facility] Blood hemoglobin measurement (mass/volume)Ordered By: Ryan Tinoco on 01-26-2023 Hemoglobin (Bld) [Mass/Vol] 8.6 g/dL 13.0-16. 5 [facility] Blood lymphocytes/100 leukoc ytesOrdered By: Ryan Tinoco on 01-26-2023 Lymphocytes/100 WBC (Bld) 8.1 % 19-41 [facility] Blood monocytes/100 leukocyt esOrdered By: Ryan Tinoco on 01-26-2023 Monocytes/100 WBC (Bld) 9.6 % 0-10 [facility] Blood platelet mean volumeOr dered By: Ryan Tinoco on 01-26-2023 Platelet mean volume (Bld) [Entitic vol] 9.9 fL 6.2-12.0 [facility] COVID-19 virus antigen assay Ordered By: Ryan Tinoco on 01-26-2023 SARS-CoV-2 (COVID-19) Ag IA.rapid Ql (Resp) [facility] SARS-CoV-2 (COVID-19) Ag IA.rapid Ql (Resp) [facility] Determination of erythrocyte mean corpuscular volume (MCV)Ordered By: Ryan Tinoco on 01-26-2023 MCV (RBC) [Entitic vol] 88.6 fL 80-94 [facility] Glucose Glucometer (BldC) [M ass/Vol]Ordered By: Ryan Tinoco on 01-26-2023 Glucose [Mass/Vol] 230 mg/dL 74-106 [facility] Comment on above: MANAGEMENT OF PATIEN T CARE PER NURSING PROTOCOL Hematocrit Auto (Bld) [Volum e fraction]Ordered By: Ryan Tinoco on 01-26-2023 Hematocrit (Bld) [Volume fraction] 27.1 % 40-54 [facility] - Chemistry and C hemistry - challengeOrdered By: Ryan Tinoco on 01-26-2023 CO2 [Moles/Vol] 23.0 mmol/L 21.0-32.0 [facility] Urea nitrogen/Creatinine [Mass ratio] 18.8 mg/mg 10-20 [facility] - Chemistry and C hemistry - challengeOrdered By: Karen Aly on 01-26-2023 Magnesium [Mass/Vol] 1.8 mg/dL 1.6-2.6 [facility] - Hematology and Cell countsOrdered By: Ryan Tinoco on 01-26-2023 Erythrocyte distribution width (RBC) [Entitic vol] 50.6 fL 35.1-43.9 [facility] Erythrocyte distribution width (RBC) [Ratio] 15.9 % 11.6-14.6 [facility] Immature granulocytes/100 WBC (Bld) 2.200 % 0.0-0.9 [facility] Comment on above: IG% - Immature Granu locytes (promyelocytes, myelocytes and metamyelocytes) > 1% indicates that a LEFT SHIFT is Present. MCH (RBC) [Entitic mass] 28.1 pg 27.0-32.0 [facility] Nucleated RBC/100 WBC (Bld) [Ratio] 0.5 % 0-5 [facility] MCHC Auto (RBC) [Mass/Vol]Or dered By: Ryna Tinoco on 01-26-2023 MCHC (RBC) [Mass/Vol] 31.7 g/dL 32-36 [facility] No Panel InformationOrdered By: Ryan Tinoco on 01-26-2023 Estimated Creatinine Clearance Calc 48.41 ml/min [facility] Estimated GFR (MDRD) Amer 59 mL/min >60 [facility] Comment on above: GFR Calc Estimated GFR (MDRD) Non-Af Amer 49 mL/min >60 [facility] Comment on above: Non- GFR Calc 28.1 pg 27.0-32.0 [facility] 15.9 % 11.6-14.6 [facility] 50.6 fl 35.1-43.9 [facility] 2.200 % 0.0-0.9 [facility] 0.5 % 0-5 [facility] 49 mL/min >60 [facility] 59 mL/min >60 [facility] 48.41 ml/min [facility] 18.8 RATIO 10-20 [facility] 23.0 mmol/L 21.0-32.0 [facility] No Panel InformationOrdered By: Karen Aly on 01-26-2023 1.8 mg/dL 1.6-2.6 [facility] Platelets bldOrdered By: Jaziel Tinoco on 01-26-2023 Platelets (Bld) [#/Vol] 217 10*3/uL 150-450 [facility] Serum or plasma calcium antoine urement (mass/volume)Ordered By: Ryan Tinoco on 01-26-2023 Calcium [Mass/Vol] 8.5 mg/dL 8.5-10.1 [facility] Serum or plasma creatinine m easurement (mass/volume)Ordered By: Ryan Tinoco on 01-26-2023 Creatinine [Mass/Vol] 1.49 mg/dL 0.70-1.30 [facility] Comment on above: The validity of the calculated GFR & GFRAA in patients over 70 years has not been determined. Clinical correlation is essential. Serum or plasma urea nitroge n measurement (mass/volume)Ordered By: Ryan Tinoco on 01-26-2023 Urea nitrogen [Mass/Vol] 28 mg/dL 7-18 [facility] Thin prep Papanicolaou smear with manual screeningOrdered By: Ryan Tinoco on 01-26-2023 Thin prep Papanicolaou smear with manual screening 6 5-15 [facility] INR in Blood by Coagulation assayOrdered By: Ryan Tinoco on 01-25-2023 INR Coag (Bld) [Relative time] 1.6 {INR} [facility] - CoagulationOrde red By: Ryan Tinoco on 01-25-2023 PT Coag (PPP) [Time] 19.1 s 11.7-14.9 [facility] No Panel InformationOrdered By: Ryan Tinoco on 01-25-2023 19.1 SECONDS 11.7-14.9 [facility] Albumin Elph [Mass/Vol]Order ed By: Liu Hackett on 01-22-2023 Albumin [Mass/Vol] 2.5 g/dL 2.9-4.4 [facility] Aldolase ser/plasOrdered By: Liu Hackett on 01-22-2023 Aldolase [Catalytic activity/Vol] 1.5 mU/mL 3.3-10.3 [facility] Comment on above: Performed at: [address] [id number] Director: Ernie Jacob PhD, Phone: [phone] at: [facility] [id number] Director: Lindsay Kearns MD, Phone: [phone] Atypical perinuclear antineu trophil cytoplasmic antibodies measurementOrdered By: Liu Hackett on 01-22-2023 Neutrophil cytoplasmic Ab.perinuclear.atypical IF (S) [Titer] <1:20 titer Neg:<1:20 [facility] Comment on above: The atypical pANCA p attern has been observed in asignificant percentage of patients with ulcerative colitis,primary sclerosing cholangitis and autoimmune hepatitis. Basophil percentageOrdered B y: Liu Hackett on 01-22-2023 Basophil percentage < 0.2 AI 0.0-0.9 [facility] Basophil percentage 3.4 mmol/L 0.4-2.0 [facility] Basophil percentage 136 U/L 87-241 [facility] Lactate [Moles/Vol] 3.4 mmol/L 0.4-2.0 [facility] Comment on above: Critical Result(s) C alled at: 12:30:42 01/22/2023 by: Aruna Morales. Inocencio Martin RN (ICU). Results read back by same. LDH [Catalytic activity/Vol] 136 U/L 87-241 [facility] Blood polychromasia detectio n by light microscopyOrdered By: Jesus Burnham on 01-22-2023 Polychromasia LM Ql (Bld) 1+ [facility] Interpretation of serum or p lasma protein pattern by immunofixation (narrative resultOrdered By: Liu Hackett on 01-22-2023 Protein Fractions Immunofixation Ori [Interp] See comment [facility] Comment on above: NOT OBSERVED Laboratory - Chemistry and C hemistry - challengeOrdered By: Liu Hackett on 01-22-2023 CK [Catalytic activity/Vol] 31 U/L 39-308 [facility] Laboratory - Hematology and Cell countsOrdered By: Jesus Burnham on 01-22-2023 Anisocytosis Ql (Bld) 1+ [facility] No Panel InformationOrdered By: Liu Hackett on 01-22-2023 Addendum Document Comment . [facility] Comment on above: Protein electrophore sis scan will follow via computer,mail, or hide inspector and sorter delivery. [employer]rome[employer] B Antibody <0.2 AI 0.0-0.9 [facility] Immunoglobulin E 399 IU/mL 6-495 [facility] Immunoglobulin G4 8 mg/dL 2-96 [facility] [employer]OOVER OPERATOR Antibody <0.2 AI 0.0-0.9 [facility] 31 U/L 39-308 [facility] 8 mg/dL 2-96 [facility] 399 IU/mL 6-495 [facility] <0.2 AI 0.0-0.9 [facility] No Panel InformationOrdered By: Jesus Burnham on 01-22-2023 1+ [facility] Review by pathologistOrdered By: Jesus Burnham on 01-22-2023 Pathologist review Ori (Unsp spec) [Interp] Reviewed [facility] Comment on above: Previous reported re sult: Corie sr Edited by: KEN on 01/23/23:1008Neutrophilic leukocytosis with left shift.Normocytic anemia.Clinical correlation necessary.Evaristo Dela Cruz M.D. 01/23/23 AMENDED REPORT 01/23/23 1008 PATH REV previously reported as: Corie sr Serum DNA double strand anti body assay (units/volume)Ordered By: Liuasim Hackett on 01-22-2023 DNA double strand Ab Qn (S) [IU]/mL 0-9 [facility] Comment on above: Negative <5 Equivoca l 5 - 9 Positive >9 Serum IgG subclass 1 measure ment (mass/volume)Ordered By: Liuasim Hackett on 01-22-2023 IgG subclass 1 (S) [Mass/Vol] 237 mg/dL 248-810 [facility] Serum IgG subclass 2 measure ment (mass/volume)Ordered By: Liuasim Hackett on 01-22-2023 IgG subclass 2 (S) [Mass/Vol] 115 mg/dL 130-555 [facility] Serum IgG subclass 3 measure ment (mass/volume)Ordered By: Liu Roxann on 01-22-2023 IgG subclass 3 (S) [Mass/Vol] 20 mg/dL 15-102 [facility] Serum Kelsey-1 antibody assay (u nits/volume)Ordered By: Liuasim Hackett on 01-22-2023 Kelsey-1 extractable nuclear Ab Qn (S) <0.2 AI 0.0-0.9 [facility] Serum Scl-70 extractable nuc lear antibody assay (units/volume)Ordered By: Liu Roxann on 01-22-2023 SCL-70 extractable nuclear Ab Qn (S) <0.2 AI 0.0-0.9 [facility] Serum Martinez extractable nucl ear antibody detectionOrdered By: Liu Hackett on 01-22-2023 Martinez extractable nuclear Ab Ql (S) <0.2 AI 0.0-0.9 [facility] Serum [id number]-5-[id number] measu rement by electrophoresisOrdered By: Liu Hackett on 01-22-2023 Alpha 1 globulin Elph [Mass/Vol] 0.2 g/dL 0.0-0.4 [facility] Alpha 1 globulin Elph [Mass/Vol] 0.6 g/dL 0.4-1.0 [facility] Serum classic neutrophil cyt oplasmic antibody assay (units/volume)Ordered By: Liu Hackett on 01-22-2023 Neutrophil cytoplasmic Ab.classic Qn (S) <1:20 titer Neg:<1:20 [facility] Serum globulin measurement ( mass/volume)Ordered By: Liu Hackett on 01-22-2023 Globulin (S) [Mass/Vol] 1.9 g/dL 2.2-3.9 [facility] Serum or plasma IgA measurem ent (mass/volume)Ordered By: Liu Hackett on 01-22-2023 IgA [Mass/Vol] 194 mg/dL 61-437 [facility] Serum or plasma IgG measurem ent (mass/volume)Ordered By: Liu Hackett on 01-22-2023 IgG [Mass/Vol] 417 mg/dL [id number] [facility] IgG [Mass/Vol] Not Reportable [facility] Serum or plasma IgM measurem ent (mass/volume)Ordered By: Liu Hackett on 01-22-2023 IgM [Mass/Vol] 15 mg/dL 15-143 [facility] Comment on above: Result confirmed on concentration. Serum or plasma beta globuli n measurement by electrophoresis (mass/volume)Ordered By: Liu Hackett on 01-22-2023 Beta globulin Elph [Mass/Vol] 0.7 g/dL 0.7-1.3 [facility] Serum or plasma gamma globul in measurement by electrophoresis (mass/volume)Ordered By: Liu Hackett on 01-22-2023 Gamma globulin Elph [Mass/Vol] 0.3 g/dL 0.4-1.8 [facility] Serum or plasma immunoelectr ophoresis interpretation (nominal result)Ordered By: Liu Hackett on 01-22-2023 Interpretation IEP [Interp] Comment . [facility] Comment on above: No monoclonality det ected. Serum perinuclear neutrophil cytoplasmic antibody titer by immunofluorescenceOrdered By: Liu Hackett on 01-22-2023 Neutrophil cytoplasmic Ab.perinuclear IF (S) [Titer] <1:20 titer Neg:<1:20 [facility] Comment on above: The presence of posi tive fluorescence exhibiting P-ANCA orC-ANCA patterns alone is not specific for the diagnosis ofWegener's Granulomatosis (WG) or microscopic polyangiitis.Decisions about treatment should not be based solely onANCA IFA results. The International ANCA Group Consensusrecommends follow up testing of positive sera with both NE-3 and MPO-ANCA enzyme immunoassays. As many as 5% serumsamples are positive only by EIA. Ref. AM J Clin Jceooi6412;111:507-513. Thin prep Papanicolaou smear with manual screeningOrdered By: Liu Hackett on 01-22-2023 Thin prep Papanicolaou smear with manual screening 1.4 0.7-1.7 [facility] Total protein bloodOrdered B y: Liu Hackett on 01-22-2023 Protein [Mass/Vol] 4.4 g/dL 6.0-8.5 [facility] Absolute lymphocyte countOrd ered By: Dandy Sauer on 01-21-2023 Lymphocytes Auto (Unsp spec) [#/Vol] 1.69 10*3/uL 0.83-4.51 [facility] Basophil percentageOrdered B y: Dandy Sauer on 01-21-2023 Basophil percentage 0-5 SEEN /hpf 0-5 [facility] Basophil percentage 5.4 g/dL 6.4-8.2 [facility] Basophil percentage 0.30 mg/dL 0.20-1.00 [facility] Basophils/100 WBC (Bld) 0.3 % 0-1 [facility] Bilirubin [Mass/Vol] 0.30 mg/dL 0.20-1.00 [facility] Comment on above: For patients on eltr ombopag therapy, use of Dimension [place] TBIL is not recommended. Chloride [Moles/Vol] 109 mmol/L 98-107 [facility] Eosinophils/100 WBC (Bld) 0.0 % 0-5 [facility] Glucose [Mass/Vol] 248 mg/dL 74-106 [facility] Comment on above: Glucose result great er than or equal to 200 mg/dLsuggests DIABETES MELLITUS per A.D.A. criteria. Lactate [Moles/Vol] 7.9 mmol/L 0.4-2.0 [facility] Comment on above: Critical Result(s) C alled at: 09:48:37 01/21/2023 by: Aruna Tadeo. Results read back by same. Neutrophils (Bld) [#/Vol] 19.7 10*3/uL 2.0-7.7 [facility] Neutrophils/100 WBC (Bld) 87.8 % 47-70 [facility] Potassium [Moles/Vol] 5.2 mmol/L 3.5-5.1 [facility] Protein [Mass/Vol] 5.4 g/dL 6.4-8.2 [facility] Sodium [Moles/Vol] 138 mmol/L 136-145 [facility] WBC (Bld) [#/Vol] 22.4 10*3/uL 4.4-11.0 [facility] Bilirubin Test strip Ql (U)O rdered By: Dandy Sauer on 01-21-2023 Bilirubin Ql (U) 1 mg/dL Negative [facility] Comment on above: COLOR OF URINE MAY A FFECT DIPSTICK RESULTS. Blood erythrocytes count (nu mber/volume)Ordered By: Dandy Sauer on 01-21-2023 RBC (Bld) [#/Vol] 3.96 10*6/uL 4.6-6.2 [facility] Blood hemoglobin measurement (mass/volume)Ordered By: Dandy Sauer on 01-21-2023 Hemoglobin (Bld) [Mass/Vol] 10.7 g/dL 13.0-16. 5 [facility] Blood lymphocytes/100 leukoc ytesOrdered By: Dandy Sauer on 01-21-2023 Lymphocytes/100 WBC (Bld) 7.5 % 19-41 [facility] Blood monocytes/100 leukocyt esOrdered By: Dandy Sauer on 01-21-2023 Monocytes/100 WBC (Bld) 2.4 % 0-10 [facility] Blood platelet mean volumeOr dered By: Dandy Sauer on 01-21-2023 Platelet mean volume (Bld) [Entitic vol] 10.7 fL 6.2-12.0 [facility] Determination of erythrocyte mean corpuscular volume (MCV)Ordered By: Dandy Sauer on 01-21-2023 MCV (RBC) [Entitic vol] 86.6 fL 80-94 [facility] Hematocrit Auto (Bld) [Volum e fraction]Ordered By: Dandy Sauer on 01-21-2023 Hematocrit (Bld) [Volume fraction] 34.3 % 40-54 [facility] INR in Blood by Coagulation assayOrdered By: Dandy Sauer on 01-21-2023 INR Coag (Bld) [Relative time] 4.2 {INR} [facility] Comment on above: CRITICAL VALUE VERIF IED. CALLED TO EVANS MARI (ER)01/21/23 1011 Zachary Gabriel.RESULTS READ BACK BY SAME. Ketones Test strip Ql (U)Ord ered By: Dandy Sauer on 01-21-2023 Ketones Ql (U) 15 mg/dl Negative [facility] - Chemistry and C hemistry - challengeOrdered By: Dandy Sauer on 01-21-2023 ALP [Catalytic activity/Vol] 76 U/L 45-117 [facility] ALT [Catalytic activity/Vol] 25 U/L 16-61 [facility] CO2 [Moles/Vol] 12.0 mmol/L 21.0-32.0 [facility] Globulin (S) [Mass/Vol] 2.7 g/dL 2.2-4.2 [facility] Urea nitrogen/Creatinine [Mass ratio] 62.8 mg/mg 10-20 [facility] - CoagulationOrde red By: Dandy Sauer on 01-21-2023 PT Coag (PPP) [Time] 41.4 s 11.7-14.9 [facility] - Hematology and Cell countsOrdered By: Dandy Sauer on 01-21-2023 Erythrocyte distribution width (RBC) [Entitic vol] 46.6 fL 35.1-43.9 [facility] Erythrocyte distribution width (RBC) [Ratio] 14.7 % 11.6-14.6 [facility] Immature granulocytes/100 WBC (Bld) 2.000 % 0.0-0.9 [facility] Comment on above: IG% - Immature Granu locytes (promyelocytes, myelocytes and metamyelocytes) > 1% indicates that a LEFT SHIFT is Present. MCH (RBC) [Entitic mass] 27.0 pg 27.0-32.0 [facility] Nucleated RBC/100 WBC (Bld) [Ratio] 0 % 0-5 [facility] Lower GI hemoglobin IA Ql (S tl)Ordered By: Dandy Sauer on 01-21-2023 Stool gastrointestinal hemoglobin detection by immunologic method Positive [facility] Stool Occult Blood (KLAUS) Positive [facility] Stool gastrointestinal hemoglobin detection by immunologic method Positive [facility] MCHC Auto (RBC) [Mass/Vol]Or dered By: Dandy Sauer on 01-21-2023 MCHC (RBC) [Mass/Vol] 31.2 g/dL 32-36 [facility] Mucus LM Ql (Urine sed)Order ed By: Dandy Sauer on 01-21-2023 Mucus Ql (Urine sed) 0 SEEN /hpf [facility] Nitrite Test strip Ql (U)Ord ered By: Dandy Sauer on 01-21-2023 Nitrite Ql (U) Negative Negative [facility] No Panel InformationOrdered By: Dandy Sauer on 01-21-2023 Estimated Creatinine Clearance Calc 36.25 ml/min [facility] Estimated GFR (MDRD) Amer 42 mL/min >60 [facility] Comment on above: GFR Calc Estimated GFR (MDRD) Non-Af Amer 35 mL/min >60 [facility] Comment on above: Non- GFR Calc Troponin I High Sensitivity 23 pg/mL 3.0-78.0 [facility] Comment on above: Please Note: [place] t Units and Gender Specific Reference Ranges. For more information see Policy Stat Procedure [place] High Sensitivity Troponin (TNIH) and attachments. 23 pg/mL 3.0-78.0 [facility] 76 U/L 45-117 [facility] 25 U/L 16-61 [facility] Platelets bldOrdered By: Renetta Sauer on 01-21-2023 Platelets (Bld) [#/Vol] 389 10*3/uL 150-450 [facility] Protein Test strip Ql (U)Ord ered By: Dandy Sauer on 01-21-2023 Protein Ql (U) 15 mg/dl Negative [facility] Serum or plasma albumin antoine urement (mass/volume)Ordered By: Dandy Sauer on 01-21-2023 Albumin [Mass/Vol] 2.7 g/dL 3.2-5.0 [facility] Serum or plasma albumin/glob ulin mass ratioOrdered By: Dandy Sauer on 01-21-2023 Albumin/Globulin [Mass ratio] 1.0 {ratio} 0.9-2.4 [facility] Serum or plasma calcium antoine urement (mass/volume)Ordered By: Dandy Sauer on 01-21-2023 Calcium [Mass/Vol] 9.7 mg/dL 8.5-10.1 [facility] Serum or plasma creatinine m easurement (mass/volume)Ordered By: Dandy Sauer on 01-21-2023 Creatinine [Mass/Vol] 1.99 mg/dL 0.70-1.30 [facility] Comment on above: The validity of the calculated GFR & GFRAA in patients over 70 years has not been determined. Clinical correlation is essential. Serum or plasma urea nitroge n measurement (mass/volume)Ordered By: Dandy Sauer on 01-21-2023 Urea nitrogen [Mass/Vol] 125 mg/dL 7-18 [facility] Comment on above: Critical Result(s) C alled at: 09:53:00 01/21/2023 by: Aruna Morales to Shwetha. Results read back by same. Squamous epithelial cells de tection in urine sediment by light microscopyOrdered By: Dandy Sauer on 01-21-2023 Epithelial cells.squamous LM Ql (Urine sed) 0-5 SEEN /hpf 0-5 [facility] Thin prep Papanicolaou smear with manual screeningOrdered By: Dandy Sauer on 01-21-2023 Thin prep Papanicolaou smear with manual screening 9 U/L 15-37 [facility] Thin prep Papanicolaou smear with manual screening 17 5-15 [facility] Urine blood detectionOrdered By: Dandy Sauer on 01-21-2023 RBC Ql (U) Negative Negative [facility] RBC Ql (U) 0 SEEN /hpf 0-5 [facility] Urine clarityOrdered By: Renetta Sauer on 01-21-2023 Clarity (U) Clear Clear [facility] Urine color determinationOrd ered By: Dandy Sauer on 01-21-2023 Color (U) Yellow Yellow [facility] Urine glucose detectionOrder ed By: Dandy Sauer on 01-21-2023 Glucose Ql (U) 100 mg/dl Normal [facility] Urine leukocyte esterase det ection by dipstickOrdered By: Dandy Sauer on 01-21-2023 Leukocyte esterase Test strip Ql (U) Negative Negative [facility] Urine pHOrdered By: Dandy Sauer on 01-21-2023 pH (U) 5.0 [pH] 5.0 - 8.0 [facility] Urine sediment bacteria coun t by microscopy (number/high power field)Ordered By: Dandy Sauer on 01-21-2023 Bacteria LM.HPF (Urine sed) [#/Area] 0 /[HPF] None Seen [facility] Urine specific gravity measu rementOrdered By: Dandy Sauer on 01-21-2023 Specific gravity (U) [Rel density] 1.020 1.002-1.03 0 [facility] Urobilinogen Auto test strip Ql (U)Ordered By: Dandy Sauer on 01-21-2023 Urobilinogen Ql (U) Normal mg/dl Normal [facility] Glucose Glucometer (BldC) [M ass/Vol]Ordered By: Gabriel Giraldo on 01-08-2023 Glucose [Mass/Vol] 201 mg/dL 74-106 [facility] Comment on above: MANAGEMENT OF PATIEN T CARE PER NURSING PROTOCOL Absolute lymphocyte countOrd ered By: Karen Aly on 01-07-2023 Lymphocytes Auto (Unsp spec) [#/Vol] 1.83 10*3/uL 0.83-4.51 [facility] Basophil percentageOrdered B y: Karen Aly on 01-07-2023 Basophil percentage 121 mg/dL 74-106 [facility] Basophil percentage 6.0 g/dL 6.4-8.2 [facility] Basophil percentage 0.70 mg/dL 0.20-1.00 [facility] Basophil percentage 138 mmol/L 136-145 [facility] Basophil percentage 4.1 mmol/L 3.5-5.1 [facility] Basophil percentage 106 mmol/L 98-107 [facility] Basophils (Bld) [#/Vol] 9.3 10*3/uL 4.4-11.0 [facility] Basophils (Bld) [#/Vol] 6.4 10*3/uL 2.0-7.7 [facility] Basophils/100 WBC (Bld) 0.6 % 0-1 [facility] Basophils/100 WBC (Bld) 69.0 % 47-70 [facility] Basophils/100 WBC (Bld) 2.4 % 0-5 [facility] Bilirubin [Mass/Vol] 0.70 mg/dL 0.20-1.00 [facility] Comment on above: For patients on eltr ombopag therapy, use of Dimension [place] TBIL is not recommended. Chloride [Moles/Vol] 106 mmol/L 98-107 [facility] Eosinophils/100 WBC (Bld) 2.4 % 0-5 [facility] Glucose [Mass/Vol] 121 mg/dL 74-106 [facility] Comment on above: Fasting Glucose resu lt from 100 to 125 mg/dL suggests IMPAIRED HOMEOSTASIS per A.D.A. criteria. Neutrophils (Bld) [#/Vol] 6.4 10*3/uL 2.0-7.7 [facility] Neutrophils/100 WBC (Bld) 69.0 % 47-70 [facility] Potassium [Moles/Vol] 4.1 mmol/L 3.5-5.1 [facility] Protein [Mass/Vol] 6.0 g/dL 6.4-8.2 [facility] Sodium [Moles/Vol] 138 mmol/L 136-145 [facility] WBC (Bld) [#/Vol] 9.3 10*3/uL 4.4-11.0 [facility] Blood erythrocytes count (nu mber/volume)Ordered By: White on 01-07-2023 RBC (Bld) [#/Vol] 4.90 10*6/uL 4.6-6.2 [facility] Blood hemoglobin measurement (mass/volume)Ordered By: White on 01-07-2023 Hemoglobin (Bld) [Mass/Vol] 13.1 g/dL 13.0-16. 5 [facility] Blood lymphocytes/100 leukoc ytesOrdered By: White on 01-07-2023 Lymphocytes/100 WBC (Bld) 19.8 % 19-41 [facility] Blood monocytes/100 leukocyt esOrdered By: White on 01-07-2023 Monocytes/100 WBC (Bld) 7.2 % 0-10 [facility] Blood platelet mean volumeOr dered By: Karen Aly on 01-07-2023 Platelet mean volume (Bld) [Entitic vol] 9.1 fL 6.2-12.0 [facility] Determination of erythrocyte mean corpuscular volume (MCV)Ordered By: Karen Aly on 01-07-2023 MCV (RBC) [Entitic vol] 83.5 fL 80-94 [facility] Hematocrit Auto (Bld) [Volum e fraction]Ordered By: Karen Jermain on 01-07-2023 Hematocrit (Bld) [Volume fraction] 40.9 % 40-54 [facility] INR in Blood by Coagulation assayOrdered By: [facility] Jermain on 01-07-2023 INR Coag (Bld) [Relative time] 2.2 {INR} [facility] - Chemistry and C hemistry - challengeOrdered By: [facility] Jermain on 01-07-2023 ALP [Catalytic activity/Vol] 90 U/L 45-117 [facility] ALT [Catalytic activity/Vol] 18 U/L 16-61 [facility] CO2 [Moles/Vol] 24.0 mmol/L 21.0-32.0 [facility] Globulin (S) [Mass/Vol] 3.1 g/dL 2.2-4.2 [facility] Urea nitrogen/Creatinine [Mass ratio] 23.0 mg/mg 10-20 [facility] - CoagulationOrde red By: Karen Aly on 01-07-2023 PT Coag (PPP) [Time] 24.8 s 11.7-14.9 [facility] - Hematology and Cell countsOrdered By: [facility] Jermain on 01-07-2023 Erythrocyte distribution width (RBC) [Entitic vol] 43.7 fL 35.1-43.9 [facility] Erythrocyte distribution width (RBC) [Ratio] 14.5 % 11.6-14.6 [facility] Immature granulocytes/100 WBC (Bld) 1.000 % 0.0-0.9 [facility] Comment on above: IG% - Immature Granu locytes (promyelocytes, myelocytes and metamyelocytes) > 1% indicates that a LEFT SHIFT is Present. MCH (RBC) [Entitic mass] 26.7 pg 27.0-32.0 [facility] Nucleated RBC/100 W[facility] (Bld) [Ratio] 0 % [facility]5 [facility] [Mass/Vol]Or dered By: Karen Aly on 01-07-2023 MCHC (RBC) [Mass/Vol] 32.0 g/dL 32-36 [facility] No Panel InformationOrdered By: Karen Aly on 01-07-2023 Estimated Creatinine Clearance Calc 63.83 ml/min [facility] Estimated GFR (MDRD) Amer 81 mL/min >60 [facility] Comment on above: GFR Calc Estimated GFR (MDRD) Non-Af Amer 67 mL/min >60 [facility] Comment on above: Non- GFR Calc 26.7 pg 27.0-32.0 [facility] 14.5 % 11.6-14.6 [facility] 43.7 fl 35.1-43.9 [facility] 1.000 % 0.0-0.9 [facility] 0 % 0-5 [facility] 24.8 SECONDS 11.7-14.9 [facility] 67 mL/min >60 [facility] 81 mL/min >60 [facility] 63.83 ml/min [facility] 23.0 RATIO 10-20 [facility] 3.1 g/dL 2.2-4.2 [facility] 90 U/L 45-117 [facility] 18 U/L 16-61 [facility] 24.0 mmol/L 21.0-32.0 [facility] Platelets bldOrdered By: Dede Aly on 01-07-2023 Platelets (Bld) [#/Vol] 216 10*3/uL 150-450 [facility] Serum or plasma albumin antoine urement (mass/volume)Ordered By: Karen Aly on 01-07-2023 Albumin [Mass/Vol] 2.9 g/dL 3.2-5.0 [facility] Serum or plasma albumin/glob ulin mass ratioOrdered By: Karen Aly on 01-07-2023 Albumin/Globulin [Mass ratio] 0.9 {ratio} 0.9-2.4 [facility] Serum or plasma calcium antoine urement (mass/volume)Ordered By: Karen Ayl on 01-07-2023 Calcium [Mass/Vol] 8.8 mg/dL 8.5-10.1 [facility] Serum or plasma creatinine m easurement (mass/volume)Ordered By: Karen Aly on 01-07-2023 Creatinine [Mass/Vol] 1.13 mg/dL 0.70-1.30 [facility] Comment on above: The validity of the calculated GFR & GFRAA in patients over 70 years has not been determined. Clinical correlation is essential. Serum or plasma urea nitroge n measurement (mass/volume)Ordered By: Karen Aly on 01-07-2023 Urea nitrogen [Mass/Vol] 26 mg/dL 7-18 [facility] Thin prep Papanicolaou smear with manual screeningOrdered By: Karen Aly on 01-07-2023 Thin prep Papanicolaou smear with manual screening 13 U/L 15-37 [facility] Thin prep Papanicolaou smear with manual screening 8 5-15 [facility] Basophil percentageOrdered B y: Karen Aly on 01-05-2023 Basophil percentage 87 mg/dL <200 [facility] Basophil percentage 116 mg/dL <199 [facility] Cholesterol [Mass/Vol] 87 mg/dL <200 [facility] Comment on above: <200 mg/dL Desirable 200-240 mg/dL Borderline >240 mg/dL High Risk Triglyceride [Mass/Vol] 116 mg/dL <199 [facility] Comment on above: The drugs N-Acetylcy steine and Metamizole may falsely depress this assay.Serum Triglycerides Reference Interval Normal <150 mg/dL Borderline high 150 - 199 mg/dL High 200 - 499 mg/dL Very High > or = 500 mg/dL No Panel InformationOrdered By: Karen Aly on 01-05-2023 Thyroid Stimulating Hormone (TSH) 1.13 uIU/mL 0.358-3.74 [facility] 1.13 uIU/mL 0.358-3.74 [facility] Serum or plasma cholesterol in HDL measurement (mass/volume)Ordered By: Karen Aly on 01-05-2023 Cholesterol in HDL [Mass/Vol] 37 mg/dL >40 [facility] Comment on above: The drugs N-Acetylcy steine and Metamizole may falsely depress this assay. Reference Range HDL <40 mg/dL Low HDL Cholesterol HDL >or= 60 mg/dL High HDL Cholesterol Serum or plasma cholesterol in VLDL measurement (mass/volume)Ordered By: Karen Aly on 01-05-2023 Cholesterol in VLDL [Mass/Vol] 23 mg/dL 5-40 [facility] Serum or plasma low density lipoprotein (LDL) cholesterol measurement (mass/volume)Ordered By: Karen Aly on 01-05-2023 Cholesterol in LDL [Mass/Vol] 27 mg/dL 0-130 [facility] Whole blood hemoglobin A1c/t otal hemoglobin ratio (mass fraction)Ordered By: Karen Aly on 01-05-2023 HbA1c (Bld) [Mass fraction] 5.8 % 3.8-5.6 [facility] Comment on above: Normal < 5.7 % Predi abetic 5.7 - 6.4 % Diabetic >or= 6.5 % Please note range changes. Absolute lymphocyte countOrd ered By: Dr. Roberts on 01-04-2023 Lymphocytes Auto (Unsp spec) [#/Vol] 1.31 10*3/uL 0.83-4.51 [facility] Assessment of wrist artery p atency prior to arterial punctureOrdered By: Dr. Aly on 01-04-2023 Arterial patency Wrist artery --pre arterial puncture N/A [facility] Bacteria identified Cx Nom ( U)Ordered By: Maggy Roberts on 01-04-2023 Culture, urine Positive [facility] Base excessOrdered By: Dr. Freddy pettit on 01-04-2023 Base excess Calc (BldV) [Moles/Vol] 0 mmol/L -2-2 [facility] Basophil percentageOrdered B y: Dr. Aly on 01-04-2023 Basophil percentage 23.7 mmol/L 22- [facility] Basophils/100 WBC (Bld) 96 % 95-99 [facility] Ammonia (P) [Moles/Vol] 17.0 umol/L - [facility] Basophil percentageOrdered B y: Karen Aly on 01-04-2023 Basophil percentage 17.0 umol/L - [facility] Basophil percentageOrdered B y: Dr. Roberts on 01-04-2023 Basophil percentage 0 SEEN /hpf 0-5 [facility] Basophils/100 WBC (Bld) 0.4 % 0-1 [facility] Bilirubin [Mass/Vol] 0.70 mg/dL 0.20-1.00 [facility] Comment on above: For patients on eltr ombopag therapy, use of Dimension [place] TBIL is not recommended. Chloride [Moles/Vol] 105 mmol/L 98-107 [facility] Eosinophils/100 WBC (Bld) 1.7 % 0-5 [facility] Glucose [Mass/Vol] 133 mg/dL 74-106 [facility] Comment on above: Fasting Glucose resu lt greater than or equal to 126 mg/dL suggests DIABETES MELLITUS per A.D.A. criteria. Neutrophils (Bld) [#/Vol] 8.0 10*3/uL 2.0-7.7 [facility] Neutrophils/100 WBC (Bld) 78.3 % 47-70 [facility] Potassium [Moles/Vol] 4.2 mmol/L 3.5-5.1 [facility] Protein [Mass/Vol] 6.3 g/dL 6.4-8.2 [facility] Sodium [Moles/Vol] 139 mmol/L 136-145 [facility] WBC (Bld) [#/Vol] 10.2 10*3/uL 4.4-11.0 [facility] Bilirubin Test strip Ql (U)O rdered By: Dr. Roberts on 01-04-2023 Bilirubin Ql (U) Negative Negative [facility] Blood erythrocytes count (nu mber/volume)Ordered By: Dr. Roberts on 01-04-2023 RBC (Bld) [#/Vol] 5.09 10*6/uL 4.6-6.2 [facility] Blood hemoglobin measurement (mass/volume)Ordered By: Dr. Roberts on 01-04-2023 Hemoglobin (Bld) [Mass/Vol] 13.5 g/dL 13.0-16. 5 [facility] Blood lymphocytes/100 leukoc ytesOrdered By: Dr. Roberts on 01-04-2023 Lymphocytes/100 WBC (Bld) 12.8 % 19-41 [facility] Blood monocytes/100 leukocyt esOrdered By: Dr. Roberts on 01-04-2023 Monocytes/100 WBC (Bld) 5.9 % 0-10 [facility] Blood platelet mean volumeOr dered By: Dr. Roberts on 01-04-2023 Platelet mean volume (Bld) [Entitic vol] 8.7 fL 6.2-12.0 [facility] CO2 (BldA) [Partial pressure ]Ordered By: Dr. Aly on 01-04-2023 CO2 (Bld) [Partial pressure] 33.9 mm[Hg] 35-45 [facility] Culture, urineOrdered By: Eddie Roberts on 01-04-2023 Bacteria identified Cx Nom (U) Positive [facility] Determination of erythrocyte mean corpuscular volume (MCV)Ordered By: Dr. Roberts on 01-04-2023 MCV (RBC) [Entitic vol] 82.1 fL 80-94 [facility] Direct bilirubinOrdered By: Dr. Roberts on 01-04-2023 Bilirubin.direct [Mass/Vol] 0.20 mg/dL 0.00-0.3 0 [facility] Hematocrit Auto (Bld) [Volum e fraction]Ordered By: Dr. Roberts on 01-04-2023 Hematocrit (Bld) [Volume fraction] 41.8 % 40-54 [facility] INR in Blood by Coagulation assayOrdered By: Dr. Roberts on 01-04-2023 INR Coag (Bld) [Relative time] 3.1 {INR} [facility] Ketones Test strip Ql (U)Ord ered By: Dr. Roberts on 01-04-2023 Ketones Ql (U) Negative Negative [facility] - Chemistry and C hemistry - challengeOrdered By: Karen Aly on 01-04-2023 Cobalamin (Vitamin B12) [Mass/Vol] 260 pg/mL 211-911 [facility] - Chemistry and C hemistry - challengeOrdered By: Dr. Aly on 01-04-2023 Magnesium [Mass/Vol] 1.8 mg/dL 1.6-2.6 [facility] - Chemistry and C hemistry - challengeOrdered By: Dr. Roberts on 01-04-2023 ALP [Catalytic activity/Vol] 102 U/L 45-117 [facility] ALT [Catalytic activity/Vol] 18 U/L 16-61 [facility] CO2 [Moles/Vol] 25.0 mmol/L 21.0-32.0 [facility] Globulin (S) [Mass/Vol] 3.2 g/dL 2.2-4.2 [facility] Urea nitrogen/Creatinine [Mass ratio] 18.7 mg/mg 10-20 [facility] - CoagulationOrde red By: Dr. Roberts on 01-04-2023 PT Coag (PPP) [Time] 32.6 s 11.7-14.9 [facility] - Hematology and Cell countsOrdered By: Dr. Roberts on 01-04-2023 Erythrocyte distribution width (RBC) [Entitic vol] 42.3 fL 35.1-43.9 [facility] Erythrocyte distribution width (RBC) [Ratio] 14.2 % 11.6-14.6 [facility] Immature granulocytes/100 WBC (Bld) 0.900 % 0.0-0.9 [facility] Comment on above: IG% - Immature Granu locytes (promyelocytes, myelocytes and metamyelocytes) > 1% indicates that a LEFT SHIFT is Present. MCH (RBC) [Entitic mass] 26.5 pg 27.0-32.0 [facility] Nucleated RBC/100 WBC (Bld) [Ratio] 0 % 0-5 [facility] - Microbiology an d Antimicrobial susceptibilityOrdered By: Maggy Roberts on 01-04-2023 Bacteria identified Cx Nom (Bld) No growth in 5 days. [facility] MCHC Auto (RBC) [Mass/Vol]Or dered By: Dr. Roberts on 01-04-2023 MCHC (RBC) [Mass/Vol] 32.3 g/dL 32-36 [facility] Mucus LM Ql (Urine sed)Order ed By: Dr. Roberts on 01-04-2023 Mucus Ql (Urine sed) 0 SEEN /hpf [facility] Nitrite Test strip Ql (U)Ord ered By: Dr. Roberts on 01-04-2023 Nitrite Ql (U) Negative Negative [facility] No Panel InformationOrdered By: Dr. Aly on 01-04-2023 Blood Gas Oxygen Percent 21 [facility] Blood Gas Sample Site R Brach [facility] Blood Gas Specimen Type ART [facility] Blood Gas Total CO2 25 mmol/L [facility] er [facility] Oxygen Delivery Device Room Air [facility] No Panel InformationOrdered By: Karen Aly on 01-04-2023 ART [facility] R Brach [facility] Room Air [facility] 21 [facility] 25 mmol/L [facility] 1.8 mg/dL 1.6-2.6 [facility] 260 pg/mL 211-911 [facility] No Panel InformationOrdered By: Maggy Roberts on 01-04-2023 No growth in 5 days. [facility] 7 pg/mL 3.0-78.0 [facility] No Panel InformationOrdered By: Dr. Roberts on 01-04-2023 Estimated Creatinine Clearance Calc 58.64 ml/min [facility] Estimated GFR (MDRD) Amer 74 mL/min >60 [facility] Comment on above: GFR Calc Estimated GFR (MDRD) Non-Af Amer 61 mL/min >60 [facility] Comment on above: Non- GFR Calc Troponin I High Sensitivity 7 pg/mL 3.0-78.0 [facility] Comment on above: Please Note: New Thania t Units and Gender Specific Reference Ranges. For more information see Policy Stat Procedure [place] High Sensitivity Troponin (TNIH) and attachments. Oxygen (BldA) [Partial press ure]Ordered By: Dr. Aly on 01-04-2023 Oxygen (Bld) [Partial pressure] 78 mmHG 75-100 [facility] Platelets bldOrdered By: Dr. Roberts on 01-04-2023 Platelets (Bld) [#/Vol] 228 10*3/uL 150-450 [facility] Protein Test strip Ql (U)Ord ered By: Dr. Roberts on 01-04-2023 Protein Ql (U) 15 mg/dl Negative [facility] Serum Treponema species anti body detectionOrdered By: Karen Aly on 01-04-2023 Treponema sp Ab Ql (S) Non-Reactive [facility] Serum or plasma albumin antoine urement (mass/volume)Ordered By: Dr. Roberts on 01-04-2023 Albumin [Mass/Vol] 3.1 g/dL 3.2-5.0 [facility] Serum or plasma calcium antoine urement (mass/volume)Ordered By: Dr. Roberts on 01-04-2023 Calcium [Mass/Vol] 8.6 mg/dL 8.5-10.1 [facility] Serum or plasma creatinine m easurement (mass/volume)Ordered By: Dr. Roberts on 01-04-2023 Creatinine [Mass/Vol] 1.23 mg/dL 0.70-1.30 [facility] Comment on above: The validity of the calculated GFR & GFRAA in patients over 70 years has not been determined. Clinical correlation is essential. Serum or plasma folate measu rement (mass/volume)Ordered By: Karen Aly on 01-04-2023 Folate [Mass/Vol] 4.40 ng/mL 3.1-55.4 [facility] Serum or plasma urea nitroge n measurement (mass/volume)Ordered By: Dr. Roberts on 01-04-2023 Urea nitrogen [Mass/Vol] 23 mg/dL 7-18 [facility] Serum procalcitonin measurem entOrdered By: Karen Aly on 01-04-2023 Procalcitonin [Mass/Vol] ng/mL 0.00-0.09 [facility] Comment on above: A procalcitonin (PCT [...] Ql (Urine sed) 0-5 SEEN /hpf 0-5 [facility] Thin prep Papanicolaou smear with manual screeningOrdered By: Dr. Roberts on 01-04-2023 Thin prep Papanicolaou smear with manual screening 13 U/L 15-37 [facility] Thin prep Papanicolaou smear with manual screening 9 5-15 [facility] Urine blood detectionOrdered By: Dr. Roberts on 01-04-2023 RBC Ql (U) 10 /ul Negative [facility] RBC Ql (U) 0-5 SEEN /hpf 0-5 [facility] Urine clarityOrdered By: Dr. Roberts on 01-04-2023 Clarity (U) Sl. Cloudy Clear [facility] Urine color determinationOrd ered By: Dr. Roberts on 01-04-2023 Color (U) Yellow Yellow [facility] Urine glucose detectionOrder ed By: Dr. Roberts on 01-04-2023 Glucose Ql (U) 100 mg/dl Normal [facility] Urine leukocyte esterase det ection by dipstickOrdered By: Dr. Roberts on 01-04-2023 Leukocyte esterase Test strip Ql (U) Negative Negative [facility] Urine pHOrdered By: Dr. Yaya gallo on 01-04-2023 pH (U) 6.0 [pH] 5.0 - 8.0 [facility] Urine sediment bacteria coun t by microscopy (number/high power field)Ordered By: Dr. Roberts on 01-04-2023 Bacteria LM.HPF (Urine sed) [#/Area] 0 /[HPF] None Seen [facility] Urine specific gravity measu rementOrdered By: Dr. Roberts on 01-04-2023 Specific gravity (U) [Rel density] 1.020 1.002-1.03 0 [facility] Urobilinogen Auto test strip Ql (U)Ordered By: Dr. Roberts on 01-04-2023 Urobilinogen Ql (U) 4 mg/dl Normal [facility] pH measurementOrdered By: Dr Jose Aly on 01-04-2023 pH (Unsp spec) 7.45 [pH] 7.35-7.45 [facility] Absolute lymphocyte counton 07-11-2022 Lymphocytes Auto (Unsp spec) [#/Vol] 1.98 10*3/uL 0.83-4.51 [facility] Work Phone: Basophil percentageon 2021 Basophils/100 WBC (Bld) 0.6 % 0-1 [facility] Work Phone: Bilirubin [Mass/Vol] 0.90 mg/dL 0.20-1.00 [facility] Work Phone: Comment on above: For patients on eltr ombopag therapy, use of Dimension [place] TBIL is not recommended. Chloride [Moles/Vol] 105 mmol/L 98-107 [facility] Work Phone: Cholesterol [Mass/Vol] 102 mg/dL <200 [facility] Work Phone: Comment on above: <200 mg/dL Desirable 200-240 mg/dL Borderline >240 mg/dL High Risk Eosinophils/100 WBC (Bld) 4.1 % 0-5 [facility] Work Phone: Glucose [Mass/Vol] 103 mg/dL 74-106 [facility] Work Phone: Comment on above: Fasting Glucose resu lt from 100 to 125 mg/dL suggests IMPAIRED HOMEOSTASIS per A.D.A. criteria. Neutrophils (Bld) [#/Vol] 5.2 10*3/uL 2.0-7.7 [facility] Work Phone: Neutrophils/100 WBC (Bld) 63.5 % 47-70 [facility] Work Phone: Potassium [Moles/Vol] 3.5 mmol/L 3.5-5.1 [facility] Work Phone: Protein [Mass/Vol] 5.9 g/dL 6.4-8.2 [facility] Work Phone: Sodium [Moles/Vol] 138 mmol/L 136-145 [facility] Work Phone: Triglyceride [Mass/Vol] 124 mg/dL <199 [facility] Work Phone: Comment on above: The drugs N-Acetylcy steine and Metamizole may falsely depress this assay.Serum Triglycerides Reference Interval Normal <150 mg/dL Borderline high 150 - 199 mg/dL High 200 - 499 mg/dL Very High > or = 500 mg/dL WBC (Bld) [#/Vol] 8.2 10*3/uL 4.4-11.0 [facility] Work Phone: Blood erythrocytes count (nu mber/volume)on 07-11-2022 RBC (Bld) [#/Vol] 4.75 10*6/uL 4.6-6.2 [facility] Work Phone: Blood hemoglobin measurement (mass/volume)on 07-11-2022 Hemoglobin (Bld) [Mass/Vol] 12.7 g/dL 13.0-16. 5 [facility] Work Phone: Blood lymphocytes/100 leukoc yteson 07-11-2022 Lymphocytes/100 WBC (Bld) 24.1 % 19-41 [facility] Work Phone: Blood monocytes/100 leukocyt eson 07-11-2022 Monocytes/100 WBC (Bld) 6.8 % 0-10 [facility] Work Phone: Blood platelet mean volumeon 07-11-2022 Platelet mean volume (Bld) [Entitic vol] 9.2 fL 6.2-12.0 [facility] Work Phone: Determination of erythrocyte mean corpuscular volume (MCV)on 07-11-2022 MCV (RBC) [Entitic vol] 82.7 fL 80-94 [facility] Work Phone: Glucose Glucometer (BldC) [M ass/Vol]on 07-11-2022 Glucose [Mass/Vol] 149 mg/dL 74-106 [facility] Work Phone: Comment on above: MANAGEMENT OF PATIEN T CARE PER NURSING PROTOCOL Hematocrit Auto (Bld) [Volum e fraction]on 07-11-2022 Hematocrit (Bld) [Volume fraction] 39.3 % 40-54 [facility] Work Phone: INR in Blood by Coagulation assayon 07-11-2022 INR Coag (Bld) [Relative time] 2.1 {INR} [facility] Work Phone: Laboratory - Chemistry and C hemistry - challengeon 07-11-2022 ALP [Catalytic activity/Vol] 106 U/L 45-117 [facility] Work Phone: ALT [Catalytic activity/Vol] 22 U/L 16-61 [facility] Work Phone: [phone] CO2 [Moles/Vol] 25.0 mmol/L 21.0-32.0 [facility] Work Phone: Globulin (S) [Mass/Vol] 2.9 g/dL 2.2-4.2 [facility] Work Phone: Magnesium [Mass/Vol] 1.9 mg/dL 1.6-2.6 [facility] Work Phone: Urea nitrogen/Creatinine [Mass ratio] 17.7 mg/mg 10-20 [facility] Work Phone: Laboratory - Coagulationon 09-11-2021 PT Coag (PPP) [Time] 23.6 s 11.7-14.9 [facility] Work Phone: Laboratory - Hematology and Cell countson 07-11-2022 Erythrocyte distribution width (RBC) [Entitic vol] 44.0 fL 35.1-43.9 [facility] Work Phone: Erythrocyte distribution width (RBC) [Ratio] 14.6 % 11.6-14.6 [facility] Work Phone: Immature granulocytes/100 WBC (Bld) 0.900 % 0.0-0.9 [facility] Work Phone: Comment on above: IG% - Immature Granu locytes (promyelocytes, myelocytes and metamyelocytes) > 1% indicates that a LEFT SHIFT is Present. MCH (RBC) [Entitic mass] 26.7 pg 27.0-32.0 [facility] Work Phone: Nucleated RBC/100 WBC (Bld) [Ratio] 0 % 0-5 [facility] Work Phone: MCHC Auto (RBC) [Mass/Vol]on 07-11-2022 MCHC (RBC) [Mass/Vol] 32.3 g/dL 32-36 [facility] Work Phone: No Panel Informationon 07-11 Estimated Creatinine Clearance Calc 64.82 ml/min [facility] Work Phone: Estimated GFR (MDRD) Amer 81 mL/min >60 [facility] Work Phone: Comment on above: GFR Calc Estimated GFR (MDRD) Non-Af Amer 67 mL/min >60 [facility] Work Phone: Comment on above: Non- GFR Calc Platelets bldon 07-11-2022 Platelets (Bld) [#/Vol] 200 10*3/uL 150-450 [facility] Work Phone: Serum or plasma albumin antoine urement (mass/volume)on 07-11-2022 Albumin [Mass/Vol] 3.0 g/dL 3.2-5.0 [facility] Work Phone: Serum or plasma albumin/glob ulin mass ratioon 07-11-2022 Albumin/Globulin [Mass ratio] 1.0 {ratio} 0.9-2.4 [facility] Work Phone: Serum or plasma calcium antoine urement (mass/volume)on 07-11-2022 Calcium [Mass/Vol] 8.6 mg/dL 8.5-10.1 [facility] Work Phone: Serum or plasma cholesterol in HDL measurement (mass/volume)on 07-11-2022 Cholesterol in HDL [Mass/Vol] 36 mg/dL >40 [facility] Work Phone: Comment on above: The drugs N-Acetylcy steine and Metamizole may falsely depress this assay. Reference Range HDL <40 mg/dL Low HDL Cholesterol HDL >or= 60 mg/dL High HDL Cholesterol Serum or plasma cholesterol in VLDL measurement (mass/volume)on 07-11-2022 Cholesterol in VLDL [Mass/Vol] 25 mg/dL 5-40 [facility] Work Phone: Serum or plasma creatinine m easurement (mass/volume)on 07-11-2022 Creatinine [Mass/Vol] 1.13 mg/dL 0.70-1.30 [facility] Work Phone: Comment on above: The validity of the calculated GFR & GFRAA in patients over 70 years has not been determined. Clinical correlation is essential. Serum or plasma low density lipoprotein (LDL) cholesterol measurement (mass/volume)on 07-11-2022 Cholesterol in LDL [Mass/Vol] 41 mg/dL 0-130 [facility] Work Phone: Serum or plasma urea nitroge n measurement (mass/volume)on 07-11-2022 Urea nitrogen [Mass/Vol] 20 mg/dL 7-18 [facility] Work Phone: Thin prep Papanicolaou smear with manual screeningon 07-11-2022 Thin prep Papanicolaou smear with manual screening 23 U/L 15-37 [facility] Work Phone: Thin prep Papanicolaou smear with manual screening 8 5-15 [facility] Work Phone: No Panel Informationon 07-10 Troponin I High Sensitivity 103 pg/mL 3.0-78.0 [facility] Work Phone: Comment on above: Please Note: New Thania t Units and Gender Specific Reference Ranges. For more information see Policy Stat Procedure [place] High Sensitivity Troponin (TNIH) and attachments. Thyroid Stimulating Hormone (TSH) 1.03 uIU/mL 0.358-3.74 [facility] Work Phone: Basophil percentageon 2021 Basophil percentage 0-5 SEEN /hpf 0-[facility] Work Phone: Bilirubin Test strip Ql (U)o n 07-09-2022 Bilirubin Ql (U) Negative Negative [facility] Work Phone: Hyaline casts LM.LPF (Urine sed) [#/Area]on 07-09-2022 Hyaline casts (Urine sed) [#/Area] 0 /[LPF] 0-5 [facility] Work Phone: Ketones Test strip Ql (U)on 07-09-2022 Ketones Ql (U) 5 mg/dl Negative [facility] Work Phone: Mucus LM Ql (Urine sed)on Mucus Ql (Urine sed) 1+ /hpf [facility] Work Phone: Nitrite Test strip Ql (U)on 07-09-2022 Nitrite Ql (U) Negative Negative [facility] Work Phone: Protein Test strip Ql (U)on 07-09-2022 Protein Ql (U) 30 mg/dl Negative [facility] Work Phone: Squamous epithelial cells de tection in urine sediment by light microscopyon 07-09-2022 Epithelial cells.squamous LM Ql (Urine sed) 0 SEEN /hpf 0-5 [facility] Work Phone: Urine blood detectionon 06-15 RBC Ql (U) 25 /ul Negative [facility] Work Phone: RBC Ql (U) 0-5 SEEN /hpf 0-5 [facility] Work Phone: Urine clarityon 07-09-2022 Clarity (U) Clear Clear [facility] Work Phone: Urine color determinationon 07-09-2022 Color (U) Yellow Yellow [facility] Work Phone: Urine glucose detectionon Glucose Ql (U) Normal mg/dl Normal [facility] Work Phone: Urine leukocyte esterase det ection by dipstickon 07-09-2022 Leukocyte esterase Test strip Ql (U) Negative Negative [facility] Work Phone: Urine pHon 07-09-2022 pH (U) 5.0 [pH] 5.0 - 8.0 [facility] Work Phone: Urine sediment bacteria coun t by microscopy (number/high power field)on 07-09-2022 Bacteria LM.HPF (Urine sed) [#/Area] 1 /[HPF] None Seen [facility] Work Phone: Urine specific gravity measu rementon 07-09-2022 Specific gravity (U) [Rel density] 1.025 1.002-1.03 0 [facility] Work Phone: Urobilinogen Auto test strip Ql (U)on 07-09-2022 Urobilinogen Ql (U) 1 mg/dl Normal [facility] Work Phone: INR in Blood by Coagulation assayon 03-07-2022 INR Coag (Bld) [Relative time] 2.9 {INR} [facility] - Coagulationon 0 03-07-2022 PT Coag (PPP) [Time] 30.2 s 11.7-14.9 [facility] Work Phone: Absolute lymphocyte counton 03-02-2022 Lymphocytes Auto (Unsp spec) [#/Vol] 1.26 10*3/uL 0.83-4.51 [facility] Work Phone: Basophil percentageon 2021 Basophil percentage 0 SEEN /hpf 0-5 [facility] Work Phone: Basophils/100 WBC (Bld) 0.4 % 0-1 [facility] Work Phone: Chloride [Moles/Vol] 105 mmol/L 98-107 [facility] Work Phone: Eosinophils/100 WBC (Bld) 2.5 % 0-5 [facility] Work Phone: Glucose [Mass/Vol] 158 mg/dL 74-106 [facility] Work Phone: Comment on above: Fasting Glucose resu lt greater than or equal to 126 mg/dL suggests DIABETES MELLITUS per A.D.A. criteria. Neutrophils (Bld) [#/Vol] 8.8 10*3/uL 2.0-7.7 [facility] Work Phone: Neutrophils/100 WBC (Bld) 78.8 % 47-70 [facility] Work Phone: Potassium [Moles/Vol] 4.2 mmol/L 3.5-5.1 [facility] Work [facility]: Sodium [Moles/Vol] 138 mmol/L 136-145 [facility] Work [facility]: WBC (Bld) [#/Vol] 11.2 10*3/uL 4.4-11.0 [facility] Work Phone: Bilirubin Test strip Ql (U)o n 03-02-2022 Bilirubin Ql (U) Negative Negative [facility] Work Phone: Blood erythrocytes count (nu mber/volume)on 03-02-2022 RBC (Bld) [#/Vol] 5.15 10*6/uL 4.6-6.2 [facility] Work Phone: Blood hemoglobin measurement (mass/volume)on 03-02-2022 Hemoglobin (Bld) [Mass/Vol] 13.8 g/dL 13.0-16. 5 [facility] Work Phone: Blood lymphocytes/100 leukoc yteson 03-02-2022 Lymphocytes/100 WBC (Bld) 11.2 % 19-41 [facility] Work Phone: Blood monocytes/100 leukocyt eson 03-02-2022 Monocytes/100 WBC (Bld) 5.7 % 0-10 [facility] Work Phone: Blood platelet mean volumeon 03-02-2022 Platelet mean volume (Bld) [Entitic vol] 9.0 fL 6.2-12.0 [facility] Work Phone: Determination of erythrocyte mean corpuscular volume (MCV)on 03-02-2022 MCV (RBC) [Entitic vol] 82.3 fL 80-94 [facility] Work Phone: Glucose Glucometer (BldC) [M ass/Vol]on 08-19-2022 Glucose [Mass/Vol] 158 mg/dL 74-106 [facility] Work Phone: Comment on above: MANAGEMENT OF PATIEN T CARE PER NURSING PROTOCOL Hematocrit Auto (Bld) [Volum e fraction]on 03-02-2022 Hematocrit (Bld) [Volume fraction] 42.4 % 40-54 [facility] Work Phone: Hyaline casts LM.LPF (Urine sed) [#/Area]on 03-02-2022 Hyaline casts (Urine sed) [#/Area] 0 /[LPF] 0-5 [facility] Work Phone: INR in Blood by Coagulation assayon 03-02-2022 INR Coag (Bld) [Relative time] 4.4 {INR} [facility] Work Phone: Comment on above: CRITICAL VALUE VERIF IED. CALLED TO [id number]/19/22 [id number] Brie Ma.RESULTS READ BACK BY SAME . Ketones Test strip Ql (U)on 03-02-2022 Ketones Ql (U) 5 mg/dl Negative [facility] Work Phone: Laboratory - Chemistry and C hemistry - challengeon 03-02-2022 CO2 [Moles/Vol] 23.0 mmol/L 21.0-32.0 [facility] Work Phone: Urea nitrogen/Creatinine [Mass ratio] 16.9 mg/mg 10-20 [facility] Work Phone: Laboratory - Coagulationon 0 03-02-2022 PT Coag (PPP) [Time] 41.4 s 11.7-14.9 [facility] Work Phone: Laboratory - Hematology and Cell countson 03-02-2022 Erythrocyte distribution width (RBC) [Entitic vol] 41.4 fL 35.1-43.9 [facility] Work Phone: Erythrocyte distribution width (RBC) [Ratio] 14.0 % 11.6-14.6 [facility] Work Phone: Immature granulocytes/100 WBC (Bld) 1.400 % 0.0-0.9 [facility] Work Phone: Comment on above: IG% - Immature Granu locytes (promyelocytes, myelocytes and metamyelocytes) > 1% indicates that a LEFT SHIFT is Present. MCH (RBC) [Entitic mass] 26.8 pg 27.0-32.0 [facility] Work Phone: Nucleated RBC/100 WBC (Bld) [Ratio] 0 % 0-5 [facility] Work Phone: MCHC Auto (RBC) [Mass/Vol]on 03-02-2022 MCHC (RBC) [Mass/Vol] 32.5 g/dL 32-36 [facility] Work Phone: Mucus LM Ql (Urine sed)on Mucus Ql (Urine sed) 3+ /hpf [facility] Work Phone: Nitrite Test strip Ql (U)on 03-02-2022 Nitrite Ql (U) Negative Negative [facility] Work Phone: No Panel Informationon 03-02 Estimated Creatinine Clearance Calc 49.49 ml/min [facility] Work Phone: Estimated GFR (MDRD) Amer 60 mL/min >60 [facility] Work Phone: Comment on above: GFR Calc Estimated GFR (MDRD) Non-Af Amer 49 mL/min >60 [facility] Work Phone: Comment on above: Non- GFR Calc Troponin I High Sensitivity 11 pg/mL 3.0-78.0 [facility] Work Phone: Comment on above: Please Note: New Thania t Units and Gender Specific Reference Ranges. For more information see Policy Stat Procedure [place] High Sensitivity Troponin (TNIH) and attachments. Platelets bldon 03-02-2022 Platelets (Bld) [#/Vol] 269 10*3/uL 150-450 [facility] Work Phone: Protein Test strip Ql (U)on 03-02-2022 Protein Ql (U) 30 mg/dl Negative [facility] Work Phone: Serum or plasma calcium antoine urement (mass/volume)on 03-02-2022 Calcium [Mass/Vol] 9.4 mg/dL 8.5-10.1 [facility] Work Phone: Serum or plasma creatinine m easurement (mass/volume)on 03-02-2022 Creatinine [Mass/Vol] 1.48 mg/dL 0.70-1.30 [facility] Work Phone: Comment on above: The validity of the calculated GFR & GFRAA in patients over 70 years has not been determined. Clinical correlation is essential. Serum or plasma urea nitroge n measurement (mass/volume)on 03-02-2022 Urea nitrogen [Mass/Vol] 25 mg/dL 7-18 [facility] Work Phone: Squamous epithelial cells de tection in urine sediment by light microscopyon 03-02-2022 Epithelial cells.squamous LM Ql (Urine sed) 0-5 SEEN /hpf 0-5 [facility] Work Phone: Thin prep Papanicolaou smear with manual screeningon 03-02-2022 Thin prep Papanicolaou smear with manual screening 10 5-15 [facility] Work Phone: Urine blood detectionon 02-12 RBC Ql (U) 10 /ul Negative [facility] Work Phone: RBC Ql (U) 0-5 SEEN /hpf 0-5 [facility] Work Phone: Urine clarityon 03-02-2022 Clarity (U) Clear Clear [facility] Work Phone: Urine color determinationon 03-02-2022 Color (U) Yellow Yellow [facility] Work Phone: Urine glucose detectionon Glucose Ql (U) 50 mg/dl Normal [facility] Work Phone: Urine leukocyte esterase det ection by dipstickon 03-02-2022 Leukocyte esterase Test strip Ql (U) Negative Negative [facility] Work Phone: Urine pHon 03-02-2022 pH (U) 5.0 [pH] 5.0 - 8.0 [facility] Work Phone: Urine sediment bacteria coun t by microscopy (number/high power field)on 03-02-2022 Bacteria LM.HPF (Urine sed) [#/Area] 2 /[HPF] None Seen [facility] Work Phone: Urine specific gravity measu rementon 03-02-2022 Specific gravity (U) [Rel density] 1.025 1.002-1.03 0 [facility] Work Phone: Urobilinogen Auto test strip Ql (U)on 03-02-2022 Urobilinogen Ql (U) Normal mg/dl Normal [facility] Work Phone: ECHOon 01-09-2022 [facility] CNPNon 01-02-2022 CNPN Telephone (VICTORIANO) RICHARD ROY ([id number]) 1945 M Date Time Provider Department 01/02/22 JUSTINA MONIQUE During your visit today, we recorded the following information about you: Justina Garcia LPN 01/02/2022 7:43 AM Signed ----- Message from Justina Monique APRN.BAR ATTENDANT sent at 01/02/2022 7:38 AM EDT ----- [...] Date Reviewed: 01/01/2022 Reviewed by: Justina Monique APRN.BAR ATTENDANT - Fully Assessed Reason for Visit: Results [...] mouth once daily. - blood sugar diagnostic ([email or web address] ULTRA TEST) test strip Test blood sugar(s) [...] Encounter Status:Closed by JUSTINA GARCIA on 01/02/22 [facility] CBC W Auto Differential pane l (Bld)on 01-01-2022 Abs Immature Gran 0.15 k/uL High <0.10 k/uL [facility] Basophils (Bld) [#/Vol] 0.06 10*3/uL <0.11 k/uL [facility] Basophils/100 WBC (Bld) 0.5 % C [facility] Differential cell count method Nom (Bld) Auto [facility] Eosinophils (Bld) [#/Vol] 0.39 10*3/uL <0.46 k/ uL [facility] Eosinophils/100 WBC (Bld) 3.1 % [facility] Erythrocyte distribution width (RBC) [Ratio] 14.5 % 11.5 - 15.0 % [facility] Hematocrit (Bld) [Volume fraction] 46.6 % 39.0 - 51.0 % [facility] Hemoglobin (Bld) [Mass/Vol] 14.5 g/dL 13.0 - 17.0 g/dL [facility] Immature Gran % 1.2 % [facility] Lymphocytes (Bld) [#/Vol] 1.81 10*3/uL 1. 00 - 4.00 k/uL [facility] Lymphocytes/100 WBC (Bld) 14.5 % [facility] MCH (RBC) [Entitic mass] 26.6 pg 26. 0 - 34.0 pg [facility] MCHC (RBC) [Mass/Vol] 31.1 g/dL 30.5 - 36.0 g/dL [facility] MCV (RBC) [Entitic vol] 85.3 fL 80.0 - 100.0 fL [facility] Monocytes (Bld) [#/Vol] 0.86 10*3/uL <0.87 k/uL [facility] Monocytes/100 WBC (Bld) 6.9 % [facility] Neutrophils (Bld) [#/Vol] 9.20 10*3/uL High 1. 45 - 7.50 k/uL [facility] Neutrophils/100 WBC (Bld) 73.8 % [facility] Nucleated RBC (Bld) [#/Vol] 10*3/uL <0.01 k/ uL [facility] Nucleated RBC/100 WBC (Bld) [Ratio] 0.0 /100 WBC [facility] Platelet mean volume (Bld) [Entitic vol] 9.7 fL 9.0 - 12.7 fL [facility] Platelets (Bld) [#/Vol] 287 10*3/uL 150 - 400 k/uL [facility] RBC (Bld) [#/Vol] 5.46 10*6/uL 4.20 - 6.00 m/uL [facility] WBC (Bld) [#/Vol] 12.47 10*3/uL High 3.70 - 11.00 k/uL [facility] Comprehensive metabolic 2000 panelon 01-01-2022 Albumin [Mass/Vol] 4.2 g/dL 3.9 - 4.9 g/dL [facility] ALP [Catalytic activity/Vol] 96 U/L 38 - 113 U/L [facility] ALT [Catalytic activity/Vol] 29 U/L 10 - 54 U/L [facility] Anion gap [Moles/Vol] 12 mmol/L 9 - 18 mmol/L [facility] AST [Catalytic activity/Vol] 20 U/L 14 - 40 U/L [facility] Bilirubin [Mass/Vol] 0.6 mg/dL 0.2 - 1 .3 mg/dL [facility] Calcium [Mass/Vol] 9.4 mg/dL 8.5 - 10. 2 mg/dL [facility] Chloride [Moles/Vol] 101 mmol/L 97 - 10 5 mmol/L [facility] CO2 [Moles/Vol] 25 mmol/L 22 - 30 mmol/L [facility] Creatinine [Mass/Vol] 1.20 mg/dL 0.73 - 1.22 mg/dL [facility] Estimated Glomerular Filtration Rate 63 mL/min/1.73m >=60 mL/min/1.7 3m [facility] Glucose [Mass/Vol] 118 mg/dL High 74 - 99 mg/dL [facility] Potassium [Moles/Vol] 4.4 mmol/L 3.7 - 5.1 mmol/L [facility] Protein [Mass/Vol] 6.6 g/dL 6.3 - 8.0 g/dL [facility] Sodium [Moles/Vol] 138 mmol/L 136 - 144 mmol/L [facility] Urea nitrogen [Mass/Vol] 15 mg/dL 9 - 24 mg/dL [facility] PSA/PROSTSPECAG SCRNon 01-01 Prostate specific Ag [Mass/Vol] 1.75 ng/mL <2.60 ng/mL [facility] UA DIP, URINE (POC)on 2021 BILIRUBIN UA (POCT) Negative Negative [facility] CLARITY UA (POCT) Clear [facility] COLOR UA (POCT) Dark yellow [facility] d [facility] GLUCOSE UA (POCT) 100 mg/dL Abnormal Negative mg/dL [facility] HEMOGLOBIN/BLOOD UA (POCT) Trace-intact Abnormal Negativ e [facility] KETONE UA (POCT) Negative Negative mg/dL [facility] LEUKOCYTES UA (POCT) Negative Negative [facility] NITRITE UA (POCT) Negative Negative [facility] PH UA (POCT) 5.5 4.5 - 8.0 [facility] Protein Ql (U) 30 mg/dL Abnormal Negative mg/dL [facility] SPECIFIC GRAVITY UA (POCT) >=1.030 1 .005 - 1.030 [facility] UROBILINOGEN UA (POCT) 1.0 E.U./dL Lanette l E.U./dL [facility] VITAMIN B12 BLOODon 01-02-20 Cobalamin (Vitamin B12) [Mass/Vol] 377 pg/mL 232-1,245 pg/mL [facility] Absolute lymphocyte counton 12-29-2021 Lymphocytes Auto (Unsp spec) [#/Vol] 1.56 10*3/uL 0.83-4.51 [facility] Work Phone: BCIDon 12-29-2021 Acinetobacter justen-baumanii complex Not detected Normal Not Detected [facility] ([place] Comment on above: Performed By: #### B JIN #### [place] [address] Bacteroides fragilis Not detected Normal Not Detected [facility] [place] Comment on above: Performed By: #### B JIN #### [place] [address] BCID Comment See Comment Normal [facility] ([place] Comment on above: Result Comment: Anti microbial [...] follow. Performed By: #### B JIN #### [place] [address] Kellie albicans Not detected Normal Not Detected [facility] ([place] Comment on above: Performed By: #### B JIN #### [facility] [address] [place] [address] Kellie auris Not detected Normal Not Detected [facility] ([place]) Comment on above: Performed By: #### B JIN #### [facility] [address] [place] [address] Kellie glabrata Not detected Normal Not Detected [facility] ([place] Comment on above: Performed By: #### B JIN #### [facility] [address] [place] [address] Kellie krusei Not detected Normal Not Detected [facility] ([place] Comment on above: Performed By: #### B JIN #### [place] [address] Kellie parapsilosis Not detected Normal Not Detected [facility] ([place] Comment on above: Performed By: #### B JIN #### [place] [address] Kellie tropicalis Not detected Normal Not Detected [facility] ([place] Comment on above: Performed By: #### B JIN #### [place] [address] Cryptococcus neoformans-gattii Not detected Normal Not Detected [facility] ([place] Comment on above: Performed By: #### B JIN #### [place] [address] CTX-M (ESBL) Not Applicable Normal Not Detected [facility] ([place] Comment on above: Performed By: #### B JIN #### [place] [address] E. Coli Not detected Normal Not Detected [facility] ([place] Comment on above: Performed By: #### B JIN #### [facility] [address] [place] [address] Enterobacter cloacae Complex Not detected Normal Not Detected [facility] ([place] Comment on above: Performed By: #### B JIN #### [facility] [address] [place] [address] Enterobacterales Not detected Normal Not Detected [facility] ([place] Comment on above: Performed By: #### B JIN #### [place] [address] Enterococcus faecalis Not detected Normal Not Detected [facility] ([place] Comment on above: Performed By: #### B JIN #### [facility] [address] [place] [address] Enterococcus faecium Not detected Normal Not Detected [facility] ([place] Comment on above: Performed By: #### B JIN #### [place] [address] Haemophilus influenzae Not detected Normal Not Detected [facility] ([place] Comment on above: Performed By: #### B JIN #### [place] [address] IMP (Carbapenemase) Not Applicable Normal Not Detected [facility] ([place] Comment on above: Performed By: #### B JIN #### [place] [address] Klebsiella aerogenes Not detected Normal Not Detected [facility] ([place] Comment on above: Performed By: #### B JIN #### [place] [address] Klebsiella oxytoca Not detected Normal Not Detected [facility] ([place] Comment on above: Performed By: #### B JIN #### [place] [address] Klebsiella pneumoniae group Not detected Normal Not Detected [facility] ([place] Comment on above: Performed By: #### B JIN #### [place] [address] KPC (Carbapenemase) Not Applicable Normal Not Detected [facility] ([place] Comment on above: Performed By: #### B JIN #### [place] [address] Listeria monocytogenes Not detected Normal Not Detected [facility] ([place] Comment on above: Performed By: #### B JIN #### [place] [address] MCR-1 (Colistin Resistance) Not Applicable Normal Not Detected [facility] ([place] Comment on above: Performed By: #### B JIN #### [place] [address] Mec A/C Detected Abnormal Not Detected [facility] ([place] Comment on above: Performed By: #### B JIN #### [facility] [address] [place] [address] Mec A/C-MREJ (MRSA) Not Applicable Normal Not Detected [facility] ([place] Comment on above: Performed By: #### B JIN #### [facility] [address] [place] [address] NDM (Carbapenemase) Not Applicable Normal Not Detected [facility] ([place] Comment on above: Performed By: #### B JIN #### [facility] [address] [place] [address] Neisseria meningitidis (Encapsalated) Not detected Normal Not Detected [facility] ([place] Comment on above: Performed By: #### B JIN #### [place] [address] OXA-48 like (Carbapenemase) Not Applicable Normal Not Detected [facility] ([place] Comment on above: Performed By: #### B JIN #### [place] [address] Proteus Not detected Normal Not Detected [facility] ([place] Comment on above: Performed By: #### B JIN #### [place] [address] Pseudomonas aeruginosa Not detected Normal Not Detected [facility] ([place] Comment on above: Performed By: #### B JIN #### [place] [address] S. agalactiae Org specific cx Ql (Vag fld) Not detected Normal Not Detected [facility] ([place] Comment on above: Performed By: #### B JIN #### [facility] [address] [place] [address] Salmonella species Not detected Normal Not Detected [facility] ([place] Comment on above: Performed By: #### B JIN #### [place] [address] Serratia marcescens Not detected Normal Not Detected [facility] ([place] Comment on above: Performed By: #### B JIN #### [address] [address] Staphylococcus Detected Abnormal Not Detected [facility] ([place] Comment on above: Performed By: #### B JIN #### [address] [address] Staphylococcus aureus Not detected Normal Not Detected [facility] ([place] Comment on above: Result Comment: If S taphylococcus aureus is Detected, an Infectious Disease physician consult is required on identification. Performed By: #### B JIN #### [place] [address] Staphylococcus epidermidis Detected Abnormal N ot Detected [facility] ([place] Comment on above: Performed By: #### B JIN #### [place] [address] Staphylococcus lugdunensis Not detected Normal N ot Detected [facility] ([place] Comment on above: Performed By: #### B JIN #### [place] [address] Stenotropomonas maltophilia Not detected Normal Not Detected [facility] ([place] Comment on above: Performed By: #### B JIN #### [place] [address] Streptococcus Not detected Normal Not Detected [facility] ([place] Comment on above: Performed By: #### B JIN #### [address] [address] Streptococcus pneumoniae Not detected Normal Not Detected [facility] ([place] Comment on above: Performed By: #### B JIN #### [place] [address] Streptococcus pyogenes Not detected Normal Not Detected [facility] ([place] Comment on above: Performed By: #### B JIN #### [place] [id number] Van A/B Not Applicable Normal Not Detected [facility] ([place] Comment on above: Performed By: #### B JIN #### [address] [address] VIM (Carbapenemase) Not Applicable Normal Not Detected [facility] ([place] Comment on above: Performed By: #### B JIN #### [facility] [address] [place] [address] Basophil percentageon 2021 Basophils/100 WBC (Bld) 0.3 % 0-1 [facility] Work Phone: Chloride [Moles/Vol] 108 mmol/L 98-[address] [facility] Work Phone: Eosinophils/100 WBC (Bld) 3.2 % 0-5 [facility] Work Phone: [phone] Glucose [Mass/Vol] 109 mg/dL 74-106 [facility] Work Phone: Comment on above: Fasting Glucose resu lt from 100 to 125 mg/dL suggests IMPAIRED HOMEOSTASIS per A.D.A. criteria. Neutrophils (Bld) [#/Vol] 6.6 10*3/uL 2.0-7.7 [facility] Work Phone: Neutrophils/100 WBC (Bld) 70.4 % 47-70 [facility] Work Phone: Potassium [Moles/Vol] 4.1 mmol/L 3.5-5.1 [facility] Work [facility]: Sodium [Moles/Vol] 140 mmol/L 136-145 [facility] Work Phone: WBC (Bld) [#/Vol] 9.4 10*3/uL 4.4-11.0 [facility] Work Phone: Blood erythrocytes count (nu mber/volume)on 12-29-2021 RBC (Bld) [#/Vol] 4.61 10*6/uL 4.6-6.2 [facility]: Blood hemoglobin measurement (mass/volume)on 12-29-2021 Hemoglobin (Bld) [Mass/Vol] 12.4 g/dL 13.0-16. 5 [facility] Work Phone: Blood lymphocytes/100 leukoc yteson 12-29-2021 Lymphocytes/100 WBC (Bld) 16.7 % 19-41 [facility] Work Phone: [phone] Blood monocytes/100 leukocyt eson 12-29-2021 Monocytes/100 WBC (Bld) 8.7 % 0-10 [facility] Work Phone: Blood platelet mean volumeon 12-29-2021 Platelet mean volume (Bld) [Entitic vol] 9.3 fL 6.2-12.0 [facility] Work Phone: Determination of erythrocyte mean corpuscular volume (MCV)on 12-29-2021 MCV (RBC) [Entitic vol] 82.9 fL 80-94 [facility] Work Phone: Glucose Glucometer (BldC) [M ass/Vol]on 12-29-2021 Glucose [Mass/Vol] 129 mg/dL 74-106 [facility] Work Phone: Comment on above: MANAGEMENT OF PATIEN T CARE PER NURSING PROTOCOL Hematocrit Auto (Bld) [Volum e fraction]on 12-29-2021 Hematocrit (Bld) [Volume fraction] 38.2 % 40-54 [facility] Work Phone: Laboratory - Chemistry and C hemistry - challengeon 12-29-2021 CO2 [Moles/Vol] 27.0 mmol/L 21.0-32.0 [facility] Work Phone: Urea nitrogen/Creatinine [Mass ratio] 16.5 mg/mg 10-20 [facility] Work Phone: Laboratory - Hematology and Cell countson 12-29-2021 Erythrocyte distribution width (RBC) [Entitic vol] 42.5 fL 35.1-43.9 [facility] Work Phone: Erythrocyte distribution width (RBC) [Ratio] 14.2 % 11.6-14.6 [facility] Work Phone: Immature granulocytes/100 WBC (Bld) 0.700 % 0.0-0.9 [facility] Work Phone: Comment on above: IG% - Immature Granu locytes (promyelocytes, myelocytes and metamyelocytes) > 1% indicates that a LEFT SHIFT is Present. MCH (RBC) [Entitic mass] 26.9 pg 27.0-32.0 [facility] Work Phone: Nucleated RBC/100 WBC (Bld) [Ratio] 0 % 0-5 [facility] Work Phone: MCHC Auto (RBC) [Mass/Vol]on 12-29-2021 MCHC (RBC) [Mass/Vol] 32.5 g/dL 32-36 [facility] Work Phone: No Panel Informationon 12-29 Estimated Creatinine Clearance Calc 71.11 ml/min [facility] Work Phone: Estimated GFR (MDRD) Amer 91 mL/min >60 [facility] Work Phone: Comment on above: GFR Calc Estimated GFR (MDRD) Non-Af Amer 75 mL/min >60 [facility] Work Phone: Comment on above: Non- GFR Calc Platelets bldon 12-29-2021 Platelets (Bld) [#/Vol] 177 10*3/uL 150-450 [facility] Work Phone: Serum or plasma calcium antoine urement (mass/volume)on 12-29-2021 Calcium [Mass/Vol] 8.4 mg/dL 8.5-10.1 [facility] Work Phone: Serum or plasma creatinine m easurement (mass/volume)on 12-29-2021 Creatinine [Mass/Vol] 1.03 mg/dL 0.70-1.30 [facility] Work Phone: Comment on above: The validity of the calculated GFR & GFRAA in patients over 70 years has not been determined. Clinical correlation is essential. Serum or plasma urea nitroge n measurement (mass/volume)on 12-29-2021 Urea nitrogen [Mass/Vol] 17 mg/dL 7-18 [facility] Work Phone: Thin prep Papanicolaou smear with manual screeningon 12-29-2021 Thin prep Papanicolaou smear with manual screening 5 5-15 [facility] Work Phone: Basophil percentageon 2021 Lactate [Moles/Vol] 1.9 mmol/L 0.4-2.0 [facility] Work Phone: COon 12-28-2021 Carbon Monoxide Level See Comments Normal [facility] ([place]) Comment on above: Order Comment: See S eparate Report Performed By: #### L IP, MG, TROPHS, CK, LAC, GFR, CO, CMP ####[address] [address] Laboratory - Chemistry and C hemistry - challengeon 12-28-2021 Magnesium [Mass/Vol] 1.8 mg/dL 1.6-2.6 [facility] Work Phone: No Panel Informationon 12-28 Troponin I High Sensitivity 23 pg/mL 3.0-78.0 [facility] Work Phone: Comment on above: Please Note: New Thania t Units and Gender Specific Reference Ranges. For more information see Policy Stat Procedure [place] High Sensitivity Troponin (TNIH) and attachments. .Auto Diffon 12-27-2021 Basophil, Absolute 0.1 10 3/mcL Normal 0.0-0.2 [facility] ([place]) Comment on above: Performed By: #### L IP, MG, TROPHS, CK, LAC, GFR, CO, CMP #### [address] [address] Basophils/100 WBC (Bld) 0.4 % Normal 0.0-2.5 [facility] ([place]) Comment on above: Performed By: #### L IP, MG, TROPHS, CK, LAC, GFR, CO, CMP #### [address] [address] Eosinophil, Absolute 0.1 10 3/mcL Normal 0.0-0.4 [facility] ([place]) Comment on above: Performed By: #### L IP, MG, TROPHS, CK, LAC, GFR, CO, CMP #### [address] [place] [address] Eosinophils/100 WBC (Bld) 0.7 % Normal 0.0-7.0 [facility] ([place] Comment on above: Performed By: #### L IP, MG, TROPHS, CK, LAC, GFR, CO, CMP #### [address] [address] Lymphocyte, Absolute 1.4 10 3/mcL Normal 0.8-3.9 [facility] ([place]) Comment on above: Performed By: #### L IP, MG, TROPHS, CK, LAC, GFR, CO, CMP #### [address] [address] Lymphocytes/100 WBC (Bld) 9.6 % Low 10.0-50.0 [facility] ([place] Comment on above: Performed By: #### L IP, MG, TROPHS, CK, LAC, GFR, CO, CMP #### [address] [address] Monocyte, Absolute 0.8 10 3/mcL Normal 0.2-1.0 [facility] ([place]) Comment on above: Performed By: #### L IP, MG, TROPHS, CK, LAC, GFR, CO, CMP #### [address] [address] Monocytes/100 WBC (Bld) 5.3 % Normal 1.7-13.0 [facility] ([place]) Comment on above: Performed By: #### L IP, MG, TROPHS, CK, LAC, GFR, CO, CMP #### [address] [address] Neutrophils/100 WBC (Bld) 84.0 % High 37.0-80.0 [facility] ([place] Comment on above: Performed By: #### L IP, MG, TROPHS, CK, LAC, GFR, CO, CMP #### [address] [address] .GFRon 12-27-2021 GFR 43 ml/min/1.73sqm Normal [facility] ([place]) Comment on above: Result Comment: GFR Population [...] CK, LAC, GFR, CO, CMP ####[place] [address] [place], [place] [address] GFR Non- 35 ml/min/1.73sqm Normal [facility] ([place]) Comment on above: Result Comment: GFR Population [...] TROPHS, CK, LAC, GFR, CO, CMP ####[place] [address] [place], [place] [address] .MDWon 12-27-2021 Monocyte Distribution Width 15.91 Normal 0.00-20. 00 [facility] ([place] Comment on above: Result Comment: For ED adult patients suspected of sepsis, MDW<=20.0 does not rule out sepsis or risk of sepsis Performed By: #### L IP, MG, TROPHS, CK, LAC, GFR, CO, CMP ####[place] [address] [place], [place] [address] .NEUABSon 12-27-2021 Neutrophil, Absolute 12.6 10 3/mcL High 2.9-6.2 [facility] ([place]) Comment on above: Performed By: #### L IP, MG, TROPHS, CK, LAC, GFR, CO, CMP ####[place] [address] [place], [place] [address] Basophil percentageon 2021 Basophil percentage 3.8 mg/dL 2.5-4.9 [facility] Work Phone: Bilirubin [Mass/Vol] 0.80 mg/dL 0.20-1.00 [facility] Work Phone: Comment on above: For patients on eltr ombopag therapy, use of Dimension [place] TBIL is not recommended. Protein [Mass/Vol] 6.3 g/dL 6.4-8.2 [facility] Work Phone: CBCon 12-27-2021 Erythrocyte distribution width (RBC) [Ratio] 14.9 % High 11.5-14.5 [facility] ([place] Comment on above: Performed By: #### L IP, MG, TROPHS, CK, LAC, GFR, CO, CMP #### [place] [address] [address] Hematocrit (Bld) [Volume fraction] 43.2 % Normal 42.0-52.0 [facility] ([place] Comment on above: Performed By: #### L IP, MG, TROPHS, CK, LAC, GFR, CO, CMP #### [address] [address] Hgb 14.4 G/dL Normal 14.0-18.0 [facility] ([place]) Comment on above: Performed By: #### L IP, MG, TROPHS, CK, LAC, GFR, CO, CMP #### [place] [address] [place], [place] [address] MCH (RBC) [Entitic mass] 26.8 pg Low 27.0-31.2 [facility] ([place] Comment on above: Performed By: #### L IP, MG, TROPHS, CK, LAC, GFR, CO, CMP #### [address] [address] MCHC 33.4 G/dL Normal 31.8-35.4 [facility] ([place] Comment on above: Performed By: #### L IP, MG, TROPHS, CK, LAC, GFR, CO, CMP #### [address] [address] MCV (RBC) [Entitic vol] 80.2 fL Normal 80.0-94.0 [facility] ([place]) Comment on above: Performed By: #### L IP, MG, TROPHS, CK, LAC, GFR, CO, CMP #### [address] [address] Platelet 305 10 3/mcL Normal 130-400 [facility] ([place] Comment on above: Performed By: #### L IP, MG, TROPHS, CK, LAC, GFR, CO, CMP #### [address] [address] Platelet mean volume (Bld) [Entitic vol] 7.5 fL Normal 7.4-10.4 [facility] ([place] Comment on above: Performed By: #### L IP, MG, TROPHS, CK, LAC, GFR, CO, CMP #### [address] [address] RBC 5.39 10 6/mcL Normal 4.04-6.13 [facility] ([place] Comment on above: Performed By: #### L IP, MG, TROPHS, CK, LAC, GFR, CO, CMP #### [address] [address] WBC 15.0 10 3/mcL High 4.6-10.8 [facility] ([place]) Comment on above: Performed By: #### L IP, MG, TROPHS, CK, LAC, GFR, CO, CMP #### [address], [place] [address] CKon 12-27-2021 CK [Catalytic activity/Vol] 220 U/L Normal 39-308 [facility] ([place] Comment on above: Performed By: #### L IP, MG, TROPHS, CK, LAC, GFR, CO, CMP ####[place] [address] [place], [place] [address] CMPon 12-27-2021 Albumin Level 3.8 G/dL Normal 3.4-4.8 [facility] ([place] Comment on above: Performed By: #### L IP, MG, TROPHS, CK, LAC, GFR, CO, CMP ####[place] [address] [place], [place] [address] Albumin/Globulin [Mass ratio] 1.4 {ratio} Normal 1.1-2.5 [facility] ([place]) Comment on above: Performed By: #### L IP, MG, TROPHS, CK, LAC, GFR, CO, CMP ####[place] [address] [place], [place] [address] ALP [Catalytic activity/Vol] 105 U/L Normal 40-135 [facility] ([place]) Comment on above: Performed By: #### L IP, MG, TROPHS, CK, LAC, GFR, CO, CMP ####[place] [place], [place] [address] ALT [Catalytic activity/Vol] 20 U/L Normal 16-63 [facility] ([place]) Comment on above: Performed By: #### L IP, MG, TROPHS, CK, LAC, GFR, CO, CMP ####[place] [address] [place], [place] [address] AST [Catalytic activity/Vol] 16 U/L Normal 10-40 [facility] ([place] Comment on above: Performed By: #### L IP, MG, TROPHS, CK, LAC, GFR, CO, CMP ####[place] [place], [place] [address] Bili Total 0.8 mg/dL Normal 0.2-1.0 [facility] ([place]) Comment on above: Result Comment: Use of this assay is not recommended for patients undergoing treatment with eltrombopag due to the potential for falsely elevated results. Performed By: #### L IP, MG, TROPHS, CK, LAC, GFR, CO, CMP ####[place] [address] [place], [place] [address] BUN/Creatinine Ratio 12 ratio Normal 7-27 [facility] ([place]) Comment on above: Performed By: #### L IP, MG, TROPHS, CK, LAC, GFR, CO, CMP ####[place] [address] [place], [place] [address] Calcium [Mass/Vol] 9.4 mg/dL Normal 8.4-10.2 [facility] ([place]) Comment on above: Performed By: #### L IP, MG, TROPHS, CK, LAC, GFR, CO, CMP ####[place] [address] [place], [place] [address] Chloride [Moles/Vol] 104 mmol/L Normal 98-107 [facility] ([place]) Comment on above: Performed By: #### L IP, MG, TROPHS, CK, LAC, GFR, CO, CMP ####[place] [address] [place], [place] [address] CO2 [Moles/Vol] 22 mmol/L Low 23-31 [facility] ([place]) Comment on above: Performed By: #### L IP, MG, TROPHS, CK, LAC, GFR, CO, CMP ####[place] [address] [place], [place] [address] Creatinine [Mass/Vol] 1.88 mg/dL High 0.70-1.30 [facility] ([place]) Comment on above: Performed By: #### L IP, MG, TROPHS, CK, LAC, GFR, CO, CMP ####[place] [address] [place], [place] [address] Electrolyte Balance 13.0 mEq/L Normal 4.0-15.0 [facility] ([place]) Comment on above: Performed By: #### L IP, MG, TROPHS, CK, LAC, GFR, CO, CMP ####[place] [address] [place], [place] [address] Globulin 2.8 G/dL Normal [facility] ([place]) Comment on above: Performed By: #### L IP, MG, TROPHS, CK, LAC, GFR, CO, CMP ####[place] [address] [place], [place] [address] Glucose [Mass/Vol] 205 mg/dL High 83-110 [facility] ([place]) Comment on above: Performed By: #### L IP, MG, TROPHS, CK, LAC, GFR, CO, CMP ####[place] [address] [place], [place] [address] Potassium [Moles/Vol] 5.2 mmol/L High 3.5-5.1 [facility] ([place]) Comment on above: Performed By: #### L IP, MG, TROPHS, CK, LAC, GFR, CO, CMP ####[place] [address] [place], [place] [address] Sodium [Moles/Vol] 139 mmol/L Normal 136-145 [facility] ([place]) Comment on above: Performed By: #### L IP, MG, TROPHS, CK, LAC, GFR, CO, CMP ####[place] [address] [place], [place] [address] Total Protein 6.6 G/dL Normal 6.4-8.2 [facility] ([place]) Comment on above: Performed By: #### L IP, MG, TROPHS, CK, LAC, GFR, CO, CMP ####[place] [address] [place], [place] [address] Urea nitrogen [Mass/Vol] 23 mg/dL High 7-18 [facility] ([place]) Comment on above: Performed By: #### L IP, MG, TROPHS, CK, LAC, GFR, CO, CMP ####[place] [address] [place], [place] [address] [id number] 12-27-2021 Date of Onset [id number] Invalid Interpretation Code [facility] ([place]) Comment on above: Performed By: #### C OVD19, FLURSV #### [place] [address] Employed in Healthcare No [facility] ([place] Comment on above: Performed By: #### C OVD19, FLURSV #### [place] [address] First Test No [facility] ([place]) Comment on above: Performed By: #### C OVD19, FLURSV #### [place] [address] Hospitalized No [facility] ([place]) Comment on above: Performed By: #### C OVD19, FLURSV #### [place] [address] ICU No [facility] ([place]) Comment on above: Performed By: #### C OVD19, FLURSV #### [place] [address] Not [facility] ([place]) Comment on above: Performed By: #### C OVD19, FLURSV #### [place] [address] Resides in Congregate Care Setting No [facility] ([place]) Comment on above: Performed By: #### C OVD19, FLURSV #### [place] [address] SARS-CoV-2 (COVID-19) RNA ANGELY+probe Ql (Unsp spec) Positive Abnormal Negative [facility] ([place]) Comment on above: Performed By: #### C OVD19, FLURSV #### [place] [address] SARS-CoV-2 (COVID-19) RNA ANGELY+probe Ql (Unsp spec) [facility] ([place]) Comment on above: Result Comment: Posi tive [...] or from non-specific signals in the assay. [employer] SARS-CoV-2 Assay is a Real-Time reverse-transcriptase polymerase [...] Performed By: #### C OVD19, FLURSV #### [address] [address] Symptomatic as Defined by CDC No Normal [facility] ([place]) Comment on above: Performed By: #### C OVD19, FLURSV #### [address] [address] [address] HEAD OR BRAIN W/O CONTRAS Ton [...] 7:53:25 PM Ordering Provider: SREEDHAR LINARES Normal [facility] ([place]) Carboxyhemoglobinon 12-28-19 Carboxyhemoglobin (Bld) [Mass/Vol] 1.9 % 0.0-1.5 [facility] Work Phone: Comment on above: * NON-SMOKER RANGE 1 .6 - 5.0% * LIGHT SMOKER RANGE 5.1 - 9.0% * HEAVY SMOKER RANGE FLURSVon 12-27-2021 Flu A PCR (AO) Negative Normal Negative [facility] ([place]) Comment on above: Result Comment: Posi tive [...] (RSV) nucleic acid in nasopharyngeal swab (FARM MANAGEMENT ADVISER) specimens from patients with signs and symptoms of respiratory infection in conjunction with clinical and laboratory findings. The test is intended for use as an aid in the differential diagnosis of influenza A virus, influenza B virus, and RSV in humans and is not intended to detect influenza C. Performed By: #### C OVD19, FLURSV #### [place] [address] [place], [place] [address] Flu B PCR (AO) Negative Normal Negative [facility] ([place]) Comment on above: Result Comment: Posi tive [...] REPEAT COLLECTION AND TESTING IS RECOMMENDED. The [employer] Flu A/B & RSV Assay is a real-time polymerase chain reaction (PCR) based qualitative in vitro diagnostic test for the direct detection and differentiation of influenza A virus, influenza B virus, and respiratory syncytial virus (RSV) nucleic acid in nasopharyngeal swab (FARM MANAGEMENT ADVISER) specimens from patients with signs and symptoms of respiratory infection in conjunction with clinical and laboratory findings. The test is intended for use as an aid in the differential diagnosis of influenza A virus, influenza B virus, and RSV in humans and is not intended to detect influenza C. Performed By: #### C OVD19, FLURSV #### [place] [address] [place], [place] [address] RSV PCR (AO) Negative Normal Negative [facility] ([place]) Comment on above: Result Comment: Posi tive [...] REPEAT COLLECTION AND TESTING IS RECOMMENDED. The [employer] Flu A/B & RSV Assay is a real-time polymerase chain reaction (PCR) based qualitative in vitro diagnostic test for the direct detection and differentiation of influenza A virus, influenza B virus, and respiratory syncytial virus (RSV) nucleic acid in nasopharyngeal swab (FARM MANAGEMENT ADVISER) specimens from patients with signs and symptoms of respiratory infection in conjunction with clinical and laboratory findings. The test is intended for use as an aid in the differential diagnosis of influenza A virus, influenza B virus, and RSV in humans and is not intended to detect influenza C. Performed By: #### C OVD19, FLURSV #### [place] [address] [place], [place] [address] INR in Blood by Coagulation assayon 12-27-2021 INR Coag (Bld) [Relative time] 2.4 {INR} [facility] Work Phone: LABORATORYOrdered By: Ramiro Rascon [...] definite cause of disease. Laboratories within the [facility] and its territories are required to report [...] Lactic Acid Lvl 3.0 mmol/L High 0.4-2.0 [facility] ([place]) Comment on above: Performed By: #### L AC #### [place] [address] [place], [place] [address] Lactic Acid Lvl 4.6 mmol/L High 0.4-2.0 [facility] ([place]) Comment on above: Performed By: #### L IP, MG, TROPHS, CK, LAC, GFR, CO, CMP ####[address] [place], [place] [address] LIPon 12-27-2021 Lipase Level 67 U/L Low 73-393 [facility] ([place]) Comment on above: Performed By: #### L IP, MG, TROPHS, CK, LAC, GFR, CO, CMP ####[address] [place], [place] [address] Laboratory - Chemistry and C hemistry - challengeon 12-27-2021 ALP [Catalytic activity/Vol] 89 U/L 45-117 [facility] Work Phone: ALT [Catalytic activity/Vol] 26 U/L 16-61 [facility] Work Phone: Globulin (S) [Mass/Vol] 3.1 g/dL 2.2-4.2 [facility] Work Phone: Laboratory - Coagulationon 0 12-27-2021 PT Coag (PPP) [Time] 25.5 s 11.7-14.9 [facility] Work Phone: MGon 12-27-2021 Magnesium [Mass/Vol] 1.3 mg/dL Low 1.8-2.4 [facility] ([place]) Comment on above: Performed By: #### L IP, MG, TROPHS, CK, LAC, GFR, CO, CMP ####[place] [address] [address] PROon 12-27-2021 INR Coag (PPP) [Relative time] 2.7 {INR} High 0.9-1.2 [facility] ([place]) Comment on above: Result Comment: Tony dard [...] Performed By: #### P RO #### [place] [address] [address] PT Coag (PPP) [Time] 31.6 s High 9.7-14.3 [facility] ([place]) Comment on above: Performed By: #### P RO #### [place] [address] [address] Serum or plasma albumin antoine urement (mass/volume)on 12-27-2021 Albumin [Mass/Vol] 3.2 g/dL 3.2-5.0 [facility] Work Phone: Serum or plasma albumin/glob ulin mass ratioon 12-27-2021 Albumin/Globulin [Mass ratio] 1.0 {ratio} 0.9-2.4 [facility] Work Phone: TROPHSon 12-27-2021 Troponin I High Sensitivity 11.1 ng/L Normal 0.0-76.2 [facility] ([place]) Comment on above: Performed By: #### L IP, MG, TROPHS, CK, LAC, GFR, CO, CMP #### [place] [address] [place], [place] [address] Thin prep Papanicolaou smear with manual screeningon 12-27-2021 Thin prep Papanicolaou smear with manual screening 44 U/L 15-37 [facility] Work Phone: XR CHEST 1 VIEWon [...] 6:23:59 PM Ordering Provider: SREEDHAR LINARES Normal [facility] ([place]) Absolute lymphocyte counton 12-06-2021 Lymphocytes Auto (Unsp spec) [#/Vol] 0.42 10*3/uL 0.83-4.51 [facility] Work Phone: Basophil percentageon 2021 Basophils/100 WBC (Bld) 0.4 % 0-1 [facility] Work Phone: Chloride [Moles/Vol] 105 mmol/L 98-107 [facility] Work Phone: Eosinophils/100 WBC (Bld) 2.3 % 0-5 [facility] Work Phone: Glucose [Mass/Vol] 138 mg/dL 74-106 [facility] Work Phone: [phone] Comment on above: Fasting Glucose resu lt greater than or equal to 126 mg/dL suggests DIABETES MELLITUS per A.D.A. criteria. Neutrophils (Bld) [#/Vol] 7.5 10*3/uL 2.0-7.7 [facility] Work Phone: Neutrophils/100 WBC (Bld) 81.2 % 47-70 [facility] Work Phone: [phone] Potassium [Moles/Vol] 3.7 mmol/L 3.5-5.1 [facility] Work Phone: Sodium [Moles/Vol] 138 mmol/L 136-145 [facility] Work Phone: WBC (Bld) [#/Vol] 9.3 10*3/uL 4.4-11.0 [facility] Work Phone: Basophil percentage 0-5 SEEN /hpf 0-5 [facility] Work Phone: Bilirubin Test strip Ql (U)o n 12-06-2021 Bilirubin Ql (U) Negative Negative [facility] Work Phone: Blood erythrocytes count (nu mber/volume)on 12-06-2021 RBC (Bld) [#/Vol] 5.07 10*6/uL 4.6-6.2 [facility] Work Phone: Blood hemoglobin measurement (mass/volume)on 12-06-2021 Hemoglobin (Bld) [Mass/Vol] 13.8 g/dL 13.0-16. 5 [facility] Work Phone: Blood lymphocytes/100 leukoc yteson 12-06-2021 Lymphocytes/100 WBC (Bld) 4.5 % 19-41 [facility] Work Phone: Blood manual differential co mment interpretation (narrative result)on 12-06-2021 Manual differential comment Ori (Bld) [Interp] SCANNED [facility] Work Phone: Comment on above: LYMPHOPENIA NOTED Blood monocytes/100 leukocyt eson 12-06-2021 Monocytes/100 WBC (Bld) 8.6 % 0-10 [facility] Work Phone: Blood platelet mean volumeon 12-06-2021 Platelet mean volume (Bld) [Entitic vol] 9.2 fL 6.2-12.0 [facility] Work Phone: Determination of erythrocyte mean corpuscular volume (MCV)on 12-06-2021 MCV (RBC) [Entitic vol] 83.0 fL 80-94 [facility] Work Phone: Hematocrit Auto (Bld) [Volum e fraction]on 12-06-2021 Hematocrit (Bld) [Volume fraction] 42.1 % 40-54 [facility] Work Phone: INR in Blood by Coagulation assayon 12-06-2021 INR Coag (Bld) [Relative time] 3.3 {INR} [facility] Work Phone: Ketones Test strip Ql (U)on 12-06-2021 Ketones Ql (U) 5 mg/dl Negative [facility] Work Phone: Laboratory - Chemistry and C hemistry - challengeon 12-06-2021 CO2 [Moles/Vol] 24.0 mmol/L 21.0-32.0 [facility] Work Phone: Urea nitrogen/Creatinine [Mass ratio] 14.2 mg/mg 10-20 [facility] Work Phone: Laboratory - Coagulationon 0 12-06-2021 PT Coag (PPP) [Time] 32.9 s 11.7-14.9 [facility] Work Phone: Laboratory - Hematology and Cell countson 12-06-2021 Erythrocyte distribution width (RBC) [Entitic vol] 42.4 fL 35.1-43.9 [facility] Work Phone: Erythrocyte distribution width (RBC) [Ratio] 14.0 % 11.6-14.6 [facility] Work Phone: Immature granulocytes/100 WBC (Bld) 3.000 % 0.0-0.9 [facility] Work Phone: Comment on above: IG% - Immature Granu locytes (promyelocytes, myelocytes and metamyelocytes) > 1% indicates that a LEFT SHIFT is Present. MCH (RBC) [Entitic mass] 27.2 pg 27.0-32.0 [facility] Work Phone: Nucleated RBC/100 WBC (Bld) [Ratio] 0 % 0-5 [facility] Work Phone: MCHC Auto (RBC) [Mass/Vol]on 12-06-2021 MCHC (RBC) [Mass/Vol] 32.8 g/dL 32-36 [facility] Work Phone: Mucus LM Ql (Urine sed)on Mucus Ql (Urine sed) 0 SEEN /hpf [facility] Work Phone: Nitrite Test strip Ql (U)on 12-06-2021 Nitrite Ql (U) Negative Negative [facility] Work Phone: No Panel Informationon 12-06 Estimated Creatinine Clearance Calc 61.03 ml/min [facility] Work Phone: Estimated GFR (MDRD) Amer 76 mL/min >60 [facility] Work Phone: Comment on above: GFR Calc Estimated GFR (MDRD) Non-Af Amer 63 mL/min >60 [facility] Work Phone: Comment on above: Non- GFR Calc Troponin I High Sensitivity 5 pg/mL 3.0-78.0 [facility] Work Phone: Comment on above: Please Note: New Thania t Units and Gender Specific Reference Ranges. For more information see Policy Stat Procedure [place] High Sensitivity Troponin (TNIH) and attachments. SARS-CoV-2 & FLU Antigen (Rapid) SARS-CoV-2 (COVID 19) [facility] Work Phone: Platelets bldon 12-06-2021 Platelets (Bld) [#/Vol] 229 10*3/uL 150-450 [facility] Work Phone: Protein Test strip Ql (U)on 12-06-2021 Protein Ql (U) 30 mg/dl Negative [facility] Work Phone: Serum or plasma calcium antoine urement (mass/volume)on 12-06-2021 Calcium [Mass/Vol] 8.9 mg/dL 8.5-10.1 [facility] Work Phone: Serum or plasma creatinine m easurement (mass/volume)on 12-06-2021 Creatinine [Mass/Vol] 1.20 mg/dL 0.70-1.30 [facility] Work Phone: Comment on above: The validity of the calculated GFR & GFRAA in patients over 70 years has not been determined. Clinical correlation is essential. Serum or plasma urea nitroge n measurement (mass/volume)on 12-06-2021 Urea nitrogen [Mass/Vol] 17 mg/dL 7-18 [facility] Work Phone: Squamous epithelial cells de tection in urine sediment by light microscopyon 12-06-2021 Epithelial cells.squamous LM Ql (Urine sed) 0-5 SEEN /hpf 0-5 [facility] Work Phone: Thin prep Papanicolaou smear with manual screeningon 12-06-2021 Thin prep Papanicolaou smear with manual screening 9 5-15 [facility] Work Phone: Urine blood detectionon 11-13 RBC Ql (U) 10 /ul Negative [facility] Work Phone: RBC Ql (U) 0 SEEN /hpf 0-5 [facility] Work Phone: Urine clarityon 12-06-2021 Clarity (U) Clear Clear [facility] Work Phone: Urine color determinationon 12-06-2021 Color (U) Yellow Yellow [facility] Work Phone: Urine glucose detectionon Glucose Ql (U) 100 mg/dl Normal [facility] Work Phone: Urine leukocyte esterase det ection by dipstickon 12-06-2021 Leukocyte esterase Test strip Ql (U) 25 /ul Negative [facility] Work Phone: Urine pHon 12-06-2021 pH (U) 5.0 [pH] 5.0 - 8.0 [facility] Work Phone: Urine sediment bacteria coun t by microscopy (number/high power field)on 12-06-2021 Bacteria LM.HPF (Urine sed) [#/Area] 1 /[HPF] None Seen [facility] Work Phone: Urine specific gravity measu rementon 12-06-2021 Specific gravity (U) [Rel density] 1.025 1.002-1.03 0 [facility] Work Phone: Urobilinogen Auto test strip Ql (U)on 12-06-2021 Urobilinogen Ql (U) 1 mg/dl Normal [facility] Work Phone: GLUCOSE, BLOOD (POC)on 10-10 Glucose [Mass/Vol] 121 mg/dL Abnormal 74 - 99 mg/dL [facility] Glucose [Mass/Vol] 144 mg/dL Abnormal 74 - 99 mg/dL [facility] No Panel Informationon 10-10 [facility] CTA CHEST (GATED) W IVCONon 07-27-2021 CTA CHEST (GATED) W IVCON * * *Final Rep ort* * * DATE OF EXAM: Jul 27 2021 11:00AM [facility] 0125 - CTA CHEST (GATED) W IVCON [...] The arch vessel branching pattern is normal. 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 Cholelithiasis without findings of acute cholecystitis. Cco & President: BLAKE Transcribe Date/Time: Jul 27 2021 11:21A Dictated by : BALBIR RAYGOZA MD This examination was interpreted and the report reviewed and electronically signed by: SADE (more content not included)... Normal [facility] Laboratory - Microbiology an d Antimicrobial susceptibility Bacteria identified Cx Nom (Bld) No growth in 5 days. [facility] Work Phone: No Panel Information SARS-CoV-2 & FLU Antigen (Rapid) SARS-CoV-2 (COVID 19) [facility] Work Phone: Vital Signs Date Time Vital Sign Value Performing Clinician Faci lity 10-12-2024 13:12-0400 Body height 182.[address] Luis Caldera MD Work Phone: [facility] 10-12-2024 13:12-0400 Body mass index (BMI) [Ratio] 32.3 kg/m2 Dr. Luis Caldera MD Work Phone: [facility] 10-12-2024 13:12-0400 Body weight 107.[address] Luis Caldera MD Work Phone: 6(597)895-495745 [place] [address] 10-12-2024 13:12-0400 Diastolic blood pressure 57 mm[Hg] Dr. Luis Caldera MD Work Phone: 9(387)650-265345 [place] [address] 10-12-2024 13:12-0400 Heart rate 65 /min Dr. Luis Caldera MD Work Phone: 7(287)076-116045 [place] [address] 10-12-2024 13:12-0400 Respiratory rate 18 /min Dr. Luis Caldera MD Work Phone: 9(648)026-372145 [place] [address] 10-12-2024 13:12-0400 SaO2% (BldA) [Mass fraction] 99 % Dr. Luis Caldera MD Work Phone: 7(372)209-257545 [place] [address] 10-12-2024 13:12-0400 Systolic blood pressure 117 mm[Hg] Dr. Luis Caldera MD Work Phone: 5(202)882-308345 [place] [address] 10-07-2023 14:18-0400 Body height 182.[address] Luis Caldera Work Phone: 6(522)808-335245 [place] [address] 10-07-2023 14:18-0400 Body mass index (BMI) [Ratio] 29.8 kg/m2 Dr. Luis Caldera Work Phone: 8(854)452-332645 [place] [address] 10-07-2023 14:18-0400 Body weight 99.[address] Luis Caldera Work Phone: 4(971)891-047945 [place] [address] 10-07-2023 14:18-0400 Diastolic blood pressure 66 mm[Hg] Dr. Luis Caldera Work Phone: 8(882)026-062345 [place] [address] 10-07-2023 14:18-0400 Heart rate 67 /min Dr. Luis Caldera Work Phone: 0(690)217-727145 [place] [address] 10-07-2023 14:18-0400 Respiratory rate 16 /min Dr. Luis Caldera Work Phone: 5(803)777-152945 [place] [address] 10-07-2023 14:18-0400 Systolic blood pressure 112 mm[Hg] Dr. Luis Caldera Work Phone: 3(949)131-949880 [place] [address] 06-03-2023 12:50-0500 Body temperature 97.2 [degF] Dr. Luis Caldera Work Phone: 1(518)574-935145 [place] [address] 06-03-2023 12:50-0500 Diastolic blood pressure 90 mm[Hg] Dr. Luis Caldera Work Phone: 1(424)633-412280 [place] [address] 06-03-2023 12:50-0500 Heart rate 85 /min Dr. Luis Caldera Work Phone: 2(805)476-591745 [place] [address] 06-03-2023 12:50-0500 Respiratory rate 16 /min Dr. Luis Caldera Work Phone: 6(436)455-778345 [place] [address] 06-03-2023 12:50-0500 SaO2% (BldA) [Mass fraction] 97 % Dr. Luis Caldera Work Phone: 5(378)679-438945 [place] [address] 06-03-2023 12:50-0500 Systolic blood pressure 134 mm[Hg] Dr. Luis Caldera Work Phone: 4(762)138-124145 [place] [address] 06-03-2023 11:45-0500 Body height 182.[address] Luis Caldera Work Phone: 1(635)744-659445 [place] [address] 06-03-2023 11:45-0500 Body mass index (BMI) [Ratio] 30.5 kg/m2 Dr. Luis Caldera Work Phone: 7(216)782-882780 [place] [address] 06-03-2023 11:45-0500 Body weight 102.[address] Luis Caldera Work Phone: 9(844)901-106980 [place] [address] 03-27-2023 13:51-0400 Body height 185.[address] Maggy Roberts Work Phone: [facility] 03-27-2023 13:51-0400 Body mass index (BMI) [Ratio] 34.7 kg/m2 Dr. Maggy Roberts Work Phone: [facility] 03-27-2023 13:51-0400 Body weight 119.[address] Maggy Roberts Work Phone: [facility] 03-27-2023 13:51-0400 Diastolic blood pressure 78 mm[Hg] Dr. Maggy Roberts Work Phone: [facility] 03-27-2023 13:51-0400 Heart rate 97 /min Dr. Maggy Roberts Work Phone: [facility] 03-27-2023 13:51-0400 Respiratory rate 18 /min Dr. Maggy Roberts Work Phone: 0(354)918-744676 [place] [address] 03-27-2023 13:51-0400 SaO2% (BldA) [Mass fraction] 98 % Dr. Maggy Roberts Work Phone: 9(592)185-799576 [place] [address] 03-27-2023 13:51-0400 Systolic blood pressure 118 mm[Hg] Dr. Maggy Roberts Work Phone: 4(229)330-026176 [place] [address] 02-13-2023 15:02-0400 Body temperature 97 [degF] Dr. Maggy Roberts Work Phone: 3(300)658-578576 [place] [address] 02-13-2023 15:02-0400 Diastolic blood pressure 70 mm[Hg] Dr. Maggy Roberts Work Phone: [facility] 02-13-2023 15:02-0400 Heart rate 82 /min Dr. Maggy Roberts Work Phone: [facility] 02-13-2023 15:02-0400 Respiratory rate 16 /min Dr. Maggy Roberts Work Phone: [facility] 02-13-2023 15:02-0400 SaO2% (BldA) [Mass fraction] 100 % Dr. Maggy Roberts Work Phone: [facility] 02-13-2023 15:02-0400 Systolic blood pressure 134 mm[Hg] Dr. Maggy Roberts Work Phone: [facility] 02-12-2023 13:33-0400 Body height 185.[address] Maggy Roberts Work Phone: 5(992)024-078176 [place] [address] 02-12-2023 13:33-0400 Body weight 102.[address] Maggy Roberts Work Phone: 9(474)850-371957 [place] [address] 02-11-2023 20:45-0400 Body mass index (BMI) [Ratio] 30 kg/m2 Dr. Maggy Roberts Work Phone: 6(261)135-040324 [address] 02-11-2023 18:53-0400 Body temperature 99.1 [degF] Dr. Maggy Roberts Work Phone: 9(049)473-604257 [place] [address] 02-11-2023 18:53-0400 Diastolic blood pressure 71 mm[Hg] Dr. Maggy Roberts Work Phone: 7(635)804-965157 [place] [address] 02-11-2023 18:53-0400 Heart rate 88 /min Dr. Maggy Roberts Work Phone: 4(823)853-960357 [place] [address] 02-11-2023 18:53-0400 Respiratory rate 18 /min Dr. Maggy Roberts Work Phone: 7(862)874-434457 [place] [address] 02-11-2023 18:53-0400 SaO2% (BldA) [Mass fraction] 93 % Dr. Maggy Roberts Work Phone: 1(571)354-281124 [address] 02-11-2023 18:53-0400 Systolic blood pressure 129 mm[Hg] Dr. Maggy Roberts Work Phone: 8(356)980-649276 [place] [address] 02-11-2023 16:21-0400 Body height 185.[address] Maggy Roberts Work Phone: 2(101)488-547876 [place] [address] 02-11-2023 00:58-0400 Body temperature 98.4 [degF] Dr. Maggy Roberts Work Phone: 3(763)762-924976 [place] [address] 02-11-2023 00:58-0400 Diastolic blood pressure 62 mm[Hg] Dr. Maggy Roberts Work Phone: 8(110)260-692876 [place] [address] 02-11-2023 00:58-0400 Heart rate 74 /min Dr. Maggy Roberts Work Phone: 7(547)665-298676 [place] [address] 02-11-2023 00:58-0400 Respiratory rate 26 /min Dr. Maggy Roberts Work Phone: 5(458)438-462357 [place] [address] 02-11-2023 00:58-0400 SaO2% (BldA) [Mass fraction] 95 % Dr. Maggy Roberts Work Phone: 8(530)146-641557 [place] [address] 02-11-2023 00:58-0400 Systolic blood pressure 124 mm[Hg] Dr. Maggy Roberts Work Phone: 0(621)165-161757 [place] [address] 02-10-2023 21:23-0400 Body height 185.[address] Maggy Roberts Work Phone: 1(363)867-382757 [place] [address] 02-10-2023 21:23-0400 Body mass index (BMI) [Ratio] 30.9 kg/m2 Dr. Maggy Roberts Work Phone: 4(024)263-018857 [place] [address] 02-10-2023 21:23-0400 Body weight 106.[address] Maggy Roberts Work Phone: 4(278)897-181057 [place] [address] 02-05-2023 15:10-0400 Body temperature 97.4 [degF] Dr. Maggy Roberts Work Phone: 6(976)188-469957 [place] [address] 02-05-2023 15:10-0400 Diastolic blood pressure 77 mm[Hg] Dr. Maggy Roberts Work Phone: 1(012)419-519757 [place] [address] 02-05-2023 15:10-0400 Heart rate 85 /min Dr. Maggy Roberts Work Phone: 9(486)792-779157 [place] [address] 02-05-2023 15:10-0400 Respiratory rate 18 /min Dr. Maggy Roberts Work Phone: 9(478)375-701057 [place] [address] 02-05-2023 15:10-0400 SaO2% (BldA) [Mass fraction] 94 % Dr. Maggy Roberts Work Phone: 8(813)137-951057 [place] [address] 02-05-2023 15:10-0400 Systolic blood pressure 131 mm[Hg] Dr. Maggy Roberts Work Phone: [facility] 02-05-2023 05:36-0400 Body mass index (BMI) [Ratio] 30.6 kg/m2 Dr. Maggy Roberts Work Phone: [facility] 02-05-2023 05:36-0400 Body weight 105.[address] Maggy Roberts Work Phone: 0(376)708-412176 [place] [address] 02-01-2023 00:17-0400 Inhaled oxygen flow rate 2 L/min Dr. Maggy Roberts Work Phone: 0(265)186-512724 [address] 01-27-2023 21:04-0400 Body temperature 98.1 [degF] Dr. Maggy Roberts Work Phone: 6(332)982-908924 [address] 01-27-2023 21:04-0400 Diastolic blood pressure 48 mm[Hg] Dr. Maggy Roberts Work Phone: 0(418)035-620476 [place] [address] 01-27-2023 21:04-0400 Heart rate 79 /min Dr. Maggy Roberts Work Phone: 3(016)054-788176 [place] [address] 01-27-2023 21:04-0400 Respiratory rate 16 /min Dr. Maggy Roberts Work Phone: 5(678)583-457576 [place] [address] 01-27-2023 21:04-0400 SaO2% (BldA) [Mass fraction] 94 % Dr. Maggy Roberts Work Phone: [facility] 01-27-2023 21:04-0400 Systolic blood pressure 111 mm[Hg] Dr. Maggy Roberts Work Phone: [facility] 01-27-2023 17:58-0400 Body height 185.[address] Maggy Roberts Work Phone: [facility] 01-27-2023 17:58-0400 Body mass index (BMI) [Ratio] 30.5 kg/m2 Dr. Maggy Roberts Work Phone: 3(557)790-732576 [place] [address] 01-27-2023 17:58-0400 Body weight [address] Maggy Roberts Work Phone: 6(748)698-295076 [place] [address] 01-26-2023 14:13-0400 Body temperature 98.6 [degF] Dr. Maggy Roberts Work Phone: 7(001)798-584357 [place] [address] 01-26-2023 14:13-0400 Diastolic blood pressure 46 mm[Hg] Dr. Maggy Roberts Work Phone: 2(108)600-963976 [place] [address] 01-26-2023 14:13-0400 Heart rate 60 /min Dr. Maggy Roberts Work Phone: 5(389)231-665357 [place] [address] 01-26-2023 14:13-0400 Respiratory rate 18 /min Dr. Maggy Roberts Work Phone: 5(637)065-057357 [place] [address] 01-26-2023 14:13-0400 SaO2% (BldA) [Mass fraction] 97 % Dr. Maggy Roberts Work Phone: 4(134)919-039576 [place] [address] 01-26-2023 14:13-0400 Systolic blood pressure 134 mm[Hg] Dr. Maggy Roberts Work Phone: 4(452)005-822957 [place] [address] 01-25-2023 05:27-0400 Body mass index (BMI) [Ratio] 28.2 kg/m2 Dr. Maggy Roberts Work Phone: 1(429)569-246176 [place] [address] 01-25-2023 05:27-0400 Body weight 96.[address] Maggy Roberts Work Phone: 3(768)746-490857 [place] [address] 01-24-2023 16:00-0400 Inhaled oxygen flow rate 93 L/min Dr. Maggy Roberts Work Phone: 9(578)545-636657 [place] [address] 01-23-2023 14:42-0400 Body height 185.[address] Maggy Roebrts Work Phone: 6(211)247-227376 [place] [address] 01-21-2023 11:32-0400 Body temperature 97.8 [degF] Dr. Maggy Roberts Work Phone: 6(695)070-315776 [place] [address] 01-21-2023 11:32-0400 Diastolic blood pressure 55 mm[Hg] Dr. Maggy Roberts Work Phone: 5(130)289-601257 [place] [address] 01-21-2023 11:32-0400 Heart rate 83 /min Dr. Maggy Roberts Work Phone: 2(701)413-194757 [place] [address] 01-21-2023 11:32-0400 Respiratory rate 23 /min Dr. Maggy Roberts Work Phone: 6(006)896-370357 [place] [address] 01-21-2023 11:32-0400 SaO2% (BldA) [Mass fraction] 93 % Dr. Maggy Roberts Work Phone: 2(136)814-756457 [place] [address] 01-21-2023 11:32-0400 Systolic blood pressure 133 mm[Hg] Dr. Maggy Roberts Work Phone: 5(787)285-348657 [place] [address] 01-21-2023 08:21-0400 Body height 185.[address] Maggy Roberts Work Phone: 1(208)886-674057 [place] [address] 01-21-2023 08:21-0400 Body mass index (BMI) [Ratio] 28.9 kg/m2 Dr. Maggy Roberts Work Phone: 5(072)125-846757 [place] [address] 01-21-2023 08:21-0400 Body weight 99.[address] Maggy Roberts Work Phone: 5(740)555-022657 [place] [address] 01-08-2023 11:58-0400 Body temperature 98.3 [degF] Dr. Maggy Roberts Work Phone: 6(139)169-491957 [place] [address] 01-08-2023 11:58-0400 Diastolic blood pressure 70 mm[Hg] Dr. Maggy Roberts Work Phone: 3(851)158-480457 [place] [address] 01-08-2023 11:58-0400 Heart rate 60 /min Dr. Maggy Roberts Work Phone: 8(954)738-303457 [place] [address] 01-08-2023 11:58-0400 Respiratory rate 14 /min Dr. Maggy Roberts Work Phone: [facility] 01-08-2023 11:58-0400 SaO2% (BldA) [Mass fraction] 96 % Dr. Maggy Roberts Work Phone: [facility] 01-08-2023 11:58-0400 Systolic blood pressure 108 mm[Hg] Dr. Maggy Roberts Work Phone: [facility] 01-08-2023 06:00-0400 Body mass index (BMI) [Ratio] 38.4 kg/m2 Dr. Maggy Roberts Work Phone: [facility] 01-08-2023 06:00-0400 Body weight [address] Maggy Roberts Work Phone: [facility] 01-04-2023 17:25-0400 Diastolic blood pressure 63 mm[Hg] [facility] 01-04-2023 17:25-0400 Heart rate 63 /min [facility] 01-04-2023 17:25-0400 Respiratory rate 12 /min [facility] 01-04-2023 17:25-0400 SaO2% (BldA) [Mass fraction] 98 % [facility] 01-04-2023 17:25-0400 Systolic blood pressure 138 mm[Hg] [facility] 01-04-2023 16:19-0400 Body temperature 96.9 [degF] [facility] 01-04-2023 11:15-0400 Body mass index (BMI) [Ratio] 30.4 kg/m2 [facility] 01-04-2023 11:15-0400 Body weight 104.7 kg [facility] 01-04-2023 10:59-0400 Body height 185.42 cm [facility] 09-07-2022 11:01-0500 Body height 185.4 cm Jojo Kaur MD Work Phone: [facility] 09-07-2022 11:01-0500 Body weight 113.4 kg Jojo Kaur MD Work Phone: [facility] 09-07-2022 11:01-0500 Diastolic blood pressure 57 mm[Hg] Jojo Kaur MD Work Phone: [facility] 09-07-2022 11:01-0500 Heart rate 64 /min Jojo Kaur MD Work Phone: [facility] 09-07-2022 11:01-0500 Respiratory rate 16 /min Jojo Kaur MD Work Phone: [facility] 09-07-2022 11:01-0500 SaO2% (BldA) [Mass fraction] 99 % Jojo Kaur MD Work Phone: [facility] 09-07-2022 11:01-0500 Systolic blood pressure 124 mm[Hg] Jojo Kaur MD Work Phone: [facility] 08-09-2022 16:35-0500 Body weight 113.4 kg Abdulaziz Caldera MD Work Phone: [facility] 08-09-2022 16:35-0500 Diastolic blood pressure 62 mm[Hg] Abdulaziz Caldera MD Work Phone: [facility] 08-09-2022 16:35-0500 Heart rate 64 /min Abdulaziz Caldera MD Work Phone: [facility] 08-09-2022 16:35-0500 Respiratory rate 16 /min Abdulaziz Caldera MD Work Phone: [facility] 08-09-2022 16:35-0500 SaO2% (BldA) [Mass fraction] 96 % Abdulaziz Caldera MD Work Phone: [facility] 08-09-2022 16:35-0500 Systolic blood pressure 112 mm[Hg] Abdulaziz Caldera MD Work Phone: [facility] 07-11-2022 16:22-0500 Body temperature 97.9 [degF] Dr. Luis Caldera Work Phone: [facility] Work Phone: 07-11-2022 16:22-0500 Diastolic blood pressure 65 mm[Hg] Dr. Luis Caldera Work Phone: [facility] Work Phone: 07-11-2022 16:22-0500 Heart rate 75 /min Dr. Luis Caldera Work Phone: [facility] Work Phone: 07-11-2022 16:22-0500 Respiratory rate 17 /min Dr. Luis Caldera Work Phone: [facility] Work Phone: 07-11-2022 16:22-0500 SaO2% (BldA) [Mass fraction] 96 % Dr. Luis Caldera Work Phone: [facility] Work Phone: 07-11-2022 16:22-0500 Systolic blood pressure 114 mm[Hg] Dr. Luis Caldera Work Phone: [facility] Work Phone: 07-11-2022 03:04-0500 Body weight 114.[address] Luis Caldera Work Phone: [facility] Work Phone: 07-10-2022 14:29-0500 Body height 185.[address] Luis Caldera Work Phone: [facility] Work Phone: 07-10-2022 03:04-0500 Body mass index (BMI) [Ratio] 33.6 kg/m2 Dr. Luis Caldera Work Phone: [facility] Work Phone: 07-09-2022 21:17-0500 Inhaled oxygen flow rate 97 L/min Dr. Luis Caldera Work Phone: [facility] Work Phone: 04-17-2022 11:23-0400 Body height 185.4 cm Jojo Kaur MD Work Phone: [place] [address]-04-2022 11:23-0400 Body weight 114.31 kg Jojo Kaur MD Work Phone: [facility] 04-17-2022 11:23-0400 Diastolic blood pressure 71 mm[Hg] Jojo Kaur MD Work Phone: [facility] 04-17-2022 11:23-0400 Heart rate 72 /min Jojo Kaur MD Work Phone: [facility] 04-17-2022 11:23-0400 Respiratory rate 18 /min Jojo Kaur MD Work Phone: [facility] 04-17-2022 11:23-0400 SaO2% (BldA) [Mass fraction] 98 % Jojo Kaur MD Work Phone: [facility] 04-17-2022 11:23-0400 Systolic blood pressure 116 mm[Hg] Jojo Kaur MD Work Phone: [facility] 04-16-2022 13:09-0400 Body height 185.4 cm Abdulaziz Caldera MD Work Phone: [facility] 04-16-2022 13:09-0400 Body weight 114.31 kg Abdulaziz Caldera MD Work Phone: [facility] 04-16-2022 13:09-0400 Diastolic blood pressure 72 mm[Hg] Abdulaziz Caldera MD Work Phone: [facility] 04-16-2022 13:09-0400 Heart rate 70 /min Abdulaziz Caldera MD Work Phone: [facility] 04-16-2022 13:09-0400 Respiratory rate 16 /min Abdulaziz Caldera MD Work Phone: [facility] 04-16-2022 13:09-0400 SaO2% (BldA) [Mass fraction] 98 % Abdulaziz Caldera MD Work Phone: [facility] 04-16-2022 13:09-0400 Systolic blood pressure 132 mm[Hg] Abdulaziz Caldera MD Work Phone: [facility] 04-06-2022 09:36-0400 Body weight 114.31 kg Roselia Podlogar PHOTOGRAPHIC ARTIST.BAR ATTENDANT Work Phone: [facility] 04-06-2022 09:36-0400 Diastolic blood pressure 62 mm[Hg] Roselia Podlogar PHOTOGRAPHIC ARTIST.BAR ATTENDANT Work Phone: [facility] 04-06-2022 09:36-0400 Heart rate 62 /min Roselia Podlogar PHOTOGRAPHIC ARTIST.BAR ATTENDANT Work Phone: [facility] 04-06-2022 09:36-0400 Respiratory rate 16 /min Roselia Podlogar PHOTOGRAPHIC ARTIST.BAR ATTENDANT Work Phone: [facility] 04-06-2022 09:36-0400 SaO2% (BldA) [Mass fraction] 97 % Roselia Podlogar PHOTOGRAPHIC ARTIST.BAR ATTENDANT Work Phone: [facility] 04-06-2022 09:36-0400 Systolic blood pressure 112 mm[Hg] Roselia Podlogar PHOTOGRAPHIC ARTIST.BAR ATTENDANT Work Phone: [facility] 03-07-2022 11:12-0400 Body weight 114.76 kg Abdulaziz Caldera MD Work Phone: [facility] 03-07-2022 11:12-0400 Diastolic blood pressure 70 mm[Hg] Abdulaziz Caldera MD Work Phone: [facility] 03-07-2022 11:12-0400 Heart rate 64 /min Abdulaziz Caldera MD Work Phone: [facility] 03-07-2022 11:12-0400 Respiratory rate 16 /min Abdulaziz Caldera MD Work Phone: [facility] 03-07-2022 11:12-0400 Systolic blood pressure 118 mm[Hg] Abdulaziz Caldera MD Work Phone: [facility] 03-05-2022 12:00-0400 Diastolic blood pressure 60 mm[Hg] Rosa Elena Poon PT [facility] 03-05-2022 12:00-0400 Systolic blood pressure 112 mm[Hg] Rosa Elena Poon PT [facility] 03-02-2022 19:48-0400 Diastolic blood pressure 79 mm[Hg] Dr. Luis Caldera Work Phone: [facility] Work Phone: 03-02-2022 19:48-0400 Heart rate 77 /min Dr. Luis Caldera Work Phone: [facility] Work Phone: 03-02-2022 19:48-0400 SaO2% (BldA) [Mass fraction] 97 % Dr. Luis Caldera Work Phone: [facility] Work Phone: 03-02-2022 19:48-0400 Systolic blood pressure 131 mm[Hg] Dr. Luis Caldera Work Phone: [facility] Work Phone: 03-02-2022 18:12-0400 Respiratory rate 17 /min Dr. Luis Caldera Work Phone: [facility] Work Phone: 03-02-2022 14:22-0400 Body height 185.[address] Luis Caldera Work Phone: [facility] Work Phone: 03-02-2022 14:22-0400 Body mass index (BMI) [Ratio] 32.3 kg/m2 Dr. Luis Caldera Work Phone: [facility] Work Phone: 03-02-2022 14:22-0400 Body temperature 98.9 [degF] Dr. Luis Caldera Work Phone: [facility] Work Phone: 03-02-2022 14:22-0400 Body weight 111.[address] Luis Caldera Work Phone: [facility] Work Phone: 01-12-2022 08:00-0400 Diastolic blood pressure 78 mm[Hg] Rosa Elena Lemon PT [facility] 01-12-2022 08:00-0400 Systolic blood pressure 130 mm[Hg] Rosa Elena Lemon PT [facility] 01-05-2022 09:56-0400 Body height 185.4 cm Jojo Kaur MD Work Phone: [facility] 01-05-2022 09:56-0400 Body weight 111.58 kg Jojo Kaur MD Work Phone: [facility] 01-05-2022 09:56-0400 Diastolic blood pressure 62 mm[Hg] Jojo Kaur MD Work Phone: [facility] 01-05-2022 09:56-0400 Heart rate 58 /min Jojo Kaur MD Work Phone: [facility] 01-05-2022 09:56-0400 Respiratory rate 16 /min Jojo Kaur MD Work Phone: [facility] 01-05-2022 09:56-0400 SaO2% (BldA) [Mass fraction] 97 % Jojo Kaur MD Work Phone: [facility] 01-05-2022 09:56-0400 Systolic blood pressure 117 mm[Hg] Jojo Kaur MD Work Phone: [facility] 01-01-2022 10:12-0400 Body temperature 97.39 [degF] Abdulaziz Caldera MD Work Phone: [facility] 01-01-2022 10:12-0400 Body weight 111.77 kg Abdulaziz Caldera MD Work Phone: [facility] 01-01-2022 10:12-0400 Diastolic blood pressure 64 mm[Hg] Abdulaziz Caldera MD Work Phone: [facility] 01-01-2022 10:12-0400 Heart rate 47 /min Abdulaziz Caldera MD Work Phone: [facility] 01-01-2022 10:12-0400 Respiratory rate 18 /min Abdulaziz Caldera MD Work Phone: [facility] 01-01-2022 10:12-0400 SaO2% (BldA) [Mass fraction] 98 % Abdulaziz Caldera MD Work Phone: [facility] 01-01-2022 10:12-0400 Systolic blood pressure 112 mm[Hg] Abdulaziz Caldera MD Work Phone: [facility] 01-01-2022 08:55-0400 Body weight 112.49 kg Justina Monique APRN.BAR ATTENDANT Work Phone: [facility] 01-01-2022 08:55-0400 Diastolic blood pressure 74 mm[Hg] Justina Monique PHOTOGRAPHIC ARTIST.BAR ATTENDANT Work Phone: [facility] 01-01-2022 08:55-0400 Heart rate 60 /min Justina Monique PHOTOGRAPHIC ARTIST.BAR ATTENDANT Work Phone: [facility] 01-01-2022 08:55-0400 Respiratory rate 18 /min Justina Monique PHOTOGRAPHIC ARTIST.BAR ATTENDANT Work Phone: [facility] 01-01-2022 08:55-0400 Systolic blood pressure 147 mm[Hg] Justina Monique PHOTOGRAPHIC ARTIST.BAR ATTENDANT Work Phone: [facility] 12-29-2021 08:54-0400 Heart rate 69 /min Dr. Luis Caldera Work Phone: [facility] Work Phone: 12-29-2021 08:50-0400 Body temperature 97.7 [degF] Dr. Luis Caldera Work Phone: [facility] Work Phone: 12-29-2021 08:50-0400 Diastolic blood pressure 68 mm[Hg] Dr. Luis Caldera Work Phone: [facility] Work Phone: 12-29-2021 08:50-0400 Respiratory rate 18 /min Dr. Luis Caldera Work Phone: [facility] Work Phone: 12-29-2021 08:50-0400 SaO2% (BldA) [Mass fraction] 96 % Dr. Luis Caldera Work Phone: [facility] Work Phone: 12-29-2021 08:50-0400 Systolic blood pressure 139 mm[Hg] Dr. Luis Caldera Work Phone: [facility] Work Phone: 12-27-2021 22:36-0400 Body height 185.[address] Luis Caldera Work Phone: [facility] Work Phone: 12-27-2021 22:36-0400 Body mass index (BMI) [Ratio] 32.8 kg/m2 Dr. Luis Caldera Work Phone: [facility] Work Phone: 12-27-2021 22:36-0400 Body weight 112.[address] Luis Caldera Work Phone: [facility] Work Phone: 12-27-2021 21:22-0400 Diastolic blood pressure 71 mm[Hg] DR MELANIA WORKMAN MD [facility] 12-27-2021 21:22-0400 Heart rate 73 /min DR MELANIA WORKMAN MD [facility] 12-27-2021 21:22-0400 Respiratory rate 24 /min DR MELANIA WORKMAN MD [facility] 12-27-2021 21:22-0400 Systolic blood pressure 121 mm[Hg] DR MELANIA WORKMAN MD [facility] 12-27-2021 20:06-0400 Diastolic blood pressure 59 mm[Hg] DR MELANIA WORKMAN MD [facility] 12-27-2021 20:06-0400 Heart rate 80 /min DR MELANIA WORKMAN MD [facility] 12-27-2021 20:06-0400 Respiratory rate 26 /min DR MELANIA WORKMAN MD [facility] 12-27-2021 20:06-0400 Systolic blood pressure 112 mm[Hg] DR MELANIA WORKMAN MD [facility] 12-27-2021 19:19-0400 Body temperature 98.6 [degF] DR MELANIA WORKMAN MD [facility] 12-27-2021 19:19-0400 Diastolic blood pressure 76 mm[Hg] DR MELANIA WORKMAN MD [facility] 12-27-2021 19:19-0400 Heart rate 82 /min DR MELANIA WORKMAN MD [facility] 12-27-2021 19:19-0400 Respiratory rate 26 /min DR MELANIA WORKMAN MD [facility] 12-27-2021 19:19-0400 Systolic blood pressure 138 mm[Hg] DR MELANIA WORKMAN MD [facility] 12-27-2021 17:36-0400 Body temperature 102.56 [degF] DR MELANIA WORKMAN MD [facility] 12-27-2021 17:36-0400 Body weight [address] MELANIA WORKMAN MD [facility] 12-27-2021 17:36-0400 Heart rate 104 /min DR MELANIA WORKMAN MD [facility] 12-14-2021 15:10-0400 Body temperature 98.2 [degF] Abdulaziz Caldera MD Work Phone: [facility] 12-14-2021 15:10-0400 Body weight 110.77 kg Abdulaziz Caldera MD Work Phone: [facility] 12-14-2021 15:10-0400 Diastolic blood pressure 70 mm[Hg] Abdulaziz Caldera MD Work Phone: [facility] 12-14-2021 15:10-0400 Heart rate 54 /min Abdulaziz Caldera MD Work Phone: [facility] 12-14-2021 15:10-0400 Respiratory rate 16 /min Abdulaziz Caldera MD Work Phone: [facility] 12-14-2021 15:10-0400 SaO2% (BldA) [Mass fraction] 96 % Abdulaziz Caldera MD Work Phone: [facility] 12-14-2021 15:10-0400 Systolic blood pressure 130 mm[Hg] Abdulaziz Caldera MD Work Phone: [facility] 12-08-2021 16:23-0400 Diastolic blood pressure 64 mm[Hg] Abdulaziz Caldera MD Work Phone: [facility] 12-08-2021 16:23-0400 Heart rate 85 /min Abdulaziz Caldera MD Work Phone: [facility] 12-08-2021 16:23-0400 Systolic blood pressure 110 mm[Hg] Abdulaziz Caldera MD Work Phone: [facility] 12-07-2021 00:58-0400 SaO2% (BldA) [Mass fraction] 97 % [facility] Work Phone: 12-06-2021 22:59-0400 Body height 185.42 cm [facility] Work Phone: 12-06-2021 22:59-0400 Body mass index (BMI) [Ratio] 33.6 kg/m2 [facility] Work Phone: 12-06-2021 22:59-0400 Body temperature 97.7 [degF] [facility] Work Phone: 12-06-2021 22:59-0400 Body weight 115.66 kg [facility] Work Phone: 12-06-2021 22:59-0400 Diastolic blood pressure 78 mm[Hg] [facility] Work Phone: 12-06-2021 22:59-0400 Heart rate 90 /min [facility] Work Phone: 12-06-2021 22:59-0400 Respiratory rate 16 /min [facility] Work Phone: 12-06-2021 22:59-0400 Systolic blood pressure 149 mm[Hg] [facility] Work Phone: 10-23-2021 13:05-0400 Body temperature 97.3 [degF] Marcella Xavier PA-C Work Phone: [facility] 10-23-2021 13:05-0400 Body weight 114.58 kg Marcella Fairplains PA-C Work Phone: [facility] 10-23-2021 13:05-0400 Diastolic blood pressure 56 mm[Hg] Marcella Xavier PA-C Work Phone: [facility] 10-23-2021 13:05-0400 Heart rate 85 /min Marcella Fairplains PA-C Work Phone: [facility] 10-23-2021 13:05-0400 SaO2% (BldA) [Mass fraction] 98 % Marcella Xavier PA-C Work Phone: [facility] 10-23-2021 13:05-0400 Systolic blood pressure 132 mm[Hg] Marcellamichael Nicholsf PA-C Work Phone: [facility] 10-10-2021 10:07-0400 Diastolic blood pressure 68 mm[Hg] Richard Jones MD Work Phone: [facility] 10-10-2021 10:07-0400 Heart rate 69 /min Richard Jones MD Work Phone: [facility] 10-10-2021 10:07-0400 Respiratory rate 16 /min Richard Jones MD Work Phone: [facility] 10-10-2021 10:07-0400 SaO2% (BldA) [Mass fraction] 98 % Richard Jones MD Work Phone: [facility] 10-10-2021 10:07-0400 Systolic blood pressure 150 mm[Hg] Richard Jones MD Work Phone: [facility] 10-10-2021 08:01-0400 Body temperature 97 [degF] Richard Jones MD Work Phone: [facility] Encounters Encounter Date Encounter Type Care Provider Facility Start: 12-22-2024 ambulatory Walter Rosita [facility] Facili ty:[facility] Start: 12-16-2024 ambulatory Walter Rosita [facility] Facili ty:[facility] Start: 11-24-2024 ambulatory Luis Chavez lity:[facility] Start: 10-12-2024 End: 10-12-[address] Olga Lidia Rasheed MD -[facility] Work Phone: Start: 10-12-2024 End: 10-12-2024 ambulatory Olga Lidia Rasheed Facility:[facility] Start: 10-05-2024 End: 10-05-[address] Luis Caldera MD Work Phone: [facility] Work Phone: Start: 10-05-2024 End: 10-05-2024 Departed Referred Walter Becker [facility] Start: 10-05-2024 Registered Referred Walter Becker [facility] Start: 10-05-2024 End: 10-05-2024 ambulatory Luis Caldera Facility:[facility] Start: 09-29-2024 End: 09-29-[address] Luis Caldera MD Work Phone: [facility] Work Phone: Start: 09-29-2024 End: 09-29-2024 Departed Referred Walter Becker MD [facility] Start: 09-29-2024 End: 09-29-2024 ambulatory Walter MAYORGA Facility:[facility] Start: 08-04-2024 End: 08-04-2024 Departed Referred Walter Becker MD [facility] Start: 08-04-2024 End: 08-04-2024 ambulatory Walter [facility]ORGA Facility:[facility] Start: 07-27-2024 End: 07-27-2024 Departed Referred Walter Becker MD [facility] Start: 07-27-2024 End: 07-27-2024 ambulatory Walter MAYROGA Facility:[facility] Start: 07-07-2024 End: 07-07-2024 Departed Referred Walter Becker [facility] Start: 07-07-2024 End: 07-07-2024 [facility] Start: 07-01-2024 ambulatory Walter [facility] Facili ty:[facility] Start: 07-01-2024 Registered Referred Walter Becker MD [facility] Start: 06-01-2024 End: 06-01-2024 ambulatory Luis Caldera Facility:[facility] Start: 04-14-2024 End: 04-14-2024 ambulatory Luis Bursley Facility:[facility] Start: 04-10-2024 End: 04-10-2024 ambulatory Luis Bursley Facility:[facility] Start: 04-09-2024 End: 04-09-2024 ambulatory Walter Stoneo OLS Facility:[facility] Start: 04-07-2024 End: 04-08-2024 ambulatory Walter Depfabienneo OLS Facility:[facility] Start: 03-02-2024 ambulatory Walter Deperro OLS Facili ty:[facility] Start: 02-24-2024 ambulatory Walter Deperro OLS Facili ty:[facility] Start: 02-19-2024 End: 02-19-2024 ambulatory Walter Stoneo OLS Facility:[facility] Start: 02-17-2024 End: 02-17-2024 ambulatory Luis Peaceley Facility:[facility] Start: 02-12-2024 End: 02-12-2024 ambulatory Luis Peaceley Facility:[facility] Start: 02-11-2024 End: 02-11-2024 ambulatory Luis Peaceley Facility:[facility] Start: 02-10-2024 End: 02-10-2024 ambulatory Luis Bursley Facility:[facility] Start: 02-03-2024 End: 02-03-2024 ambulatory Walter Stoneo OLS Facility:[facility] Start: 01-27-2024 End: 01-27-2024 ambulatory Walter Depfabienneo OLS Facility:[facility] Start: 01-20-2024 ambulatory Walter Deperro OLS Facili ty:[facility] Start: 01-15-2024 ambulatory Walter Depfabienneo OLS Facili ty:[facility] Start: 01-14-2024 ambulatory Walter Deperro OLS Facili ty:[facility] Start: 01-13-2024 ambulatory Walter Deperro OLS Facili ty:[facility] Start: 10-25-[address] Adam Caldera Work Phone: [facility] Start: 10-16-2023 End: 10-16-[address] Luis Caldera Work Phone: [facility] Work Phone: Start: 10-16-2023 End: 10-16-[address] Luis Caldera Work Phone: [facility] Start: 10-16-[address] Adam Caldera Work Phone: [facility] Start: 10-08-2023 End: 10-08-[address] Luis Caldera Work Phone: [facility] Work Phone: Start: 10-08-2023 End: 10-08-[address] Luis Caldera Work Phone: [facility] Start: 10-08-[address] Adam Caldera Work Phone: [facility] Start: 10-07-2023 End: 10-07-[address] Luis Caldera Work Phone: [facility] Work Phone: Start: 10-04-2023 End: 10-04-[address] Luis Caldera Work Phone: [facility] Work Phone: Start: 10-04-2023 End: 10-04-[address] Luis Caldera Work Phone: [facility] Start: 10-01-2023 End: 10-01-[address] Luis Caldera Work Phone: [facility] Work Phone: Start: 10-01-2023 End: 10-01-[address] Luis Caldera Work Phone: [facility] Start: 10-01-2023 Registered Referred [facility] Start: 09-25-2023 End: 09-25-2023 ambulatory [facility] Work Phone: Start: 09-25-2023 End: 09-25-2023 Departed Referred [facility] Start: 09-18-2023 End: 09-18-2023 ambulatory [facility] Work Phone: Start: 09-18-2023 End: 09-18-2023 Departed Referred [facility] Start: 09-18-2023 Registered Referred [facility] Start: 09-13-2023 End: 09-13-2023 ambulatory [facility] Work Phone: Start: 09-13-2023 End: 09-13-2023 Departed Referred [facility] Start: 09-13-2023 Registered Referred [facility] Start: 09-12-2023 End: 09-12-2023 ambulatory [facility] Work Phone: Start: 09-12-2023 End: 09-12-2023 Departed Referred [facility] Start: 09-12-2023 Registered Referred [facility] Start: 09-09-2023 End: 09-09-2023 ambulatory [facility] Work Phone: Start: 09-09-2023 End: 09-09-2023 Departed Referred [facility] Start: 09-09-2023 Registered Referred [facility] Start: 08-26-2023 End: 08-26-2023 ambulatory [facility] Work Phone: Start: 08-26-2023 End: 08-26-2023 Departed Referred [facility] Start: 08-26-2023 Registered Referred [facility] Start: 08-19-2023 End: 08-19-2023 ambulatory [facility] Work Phone: Start: 08-19-2023 End: 08-19-2023 Departed Referred [facility] Start: 08-19-2023 Registered Referred [facility] Start: 08-12-2023 End: 08-12-2023 ambulatory [facility] Work Phone: Start: 08-12-2023 End: 08-12-2023 Departed Referred [facility] Start: 08-12-2023 Registered Referred [facility] Start: 08-05-2023 End: 08-05-2023 ambulatory [facility] Work Phone: Start: 08-05-2023 End: 08-05-2023 Departed Referred [facility] Start: 08-05-2023 Registered Referred [facility] Start: 07-29-2023 End: 07-29-2023 ambulatory [facility] Work Phone: Start: 07-29-2023 End: 07-29-2023 Departed Referred [facility] Start: 07-22-2023 End: 07-22-2023 ambulatory [facility] Work Phone: Start: 07-22-2023 End: 07-22-2023 Departed Referred [facility] Start: 07-22-[address] Adam Caldera Work Phone: [facility] Start: 07-19-2023 End: 07-19-2023 ambulatory [facility] Work Phone: Start: 07-19-2023 End: 07-19-2023 Departed Referred [facility] Start: 07-19-[address] Adam Caldera Work Phone: [facility] Start: 07-17-2023 End: 07-17-2023 ambulatory [facility] Work Phone: Start: 07-17-2023 End: 07-17-2023 Departed Referred [facility] Start: 07-17-[address] Adam Caldera Work Phone: [facility] Start: 07-10-2023 End: 07-10-[address] Luis Caldera Work Phone: [facility] Work Phone: Start: 07-10-2023 End: 07-10-[address] Luis Caldera Work Phone: [facility] Start: 07-03-2023 End: 07-03-[address] Luis Caldera Work Phone: [facility] Work Phone: Start: 07-03-2023 End: 07-03-[address] Luis Caldera Work Phone: [facility] Start: 07-03-[address] Adam Caldera Work Phone: [facility] Start: 06-26-2023 End: 06-26-[address] Luis Caldera Work Phone: [facility] Work Phone: Start: 06-26-2023 End: 06-26-[address] Luis Caldera Work Phone: [facility] Start: 06-26-[address] Adam Caldera Work Phone: [facility] Start: 06-25-2023 End: 06-25-[address] Luis Caldera Work Phone: [facility] Work Phone: Start: 06-25-2023 End: 06-25-[address] Luis Caldera Work Phone: [facility] Start: 06-25-[address] Adam Caldera Work Phone: [facility] Start: 06-24-2023 End: 06-24-[address] Luis Caldera Work Phone: [facility] Work Phone: Start: 06-24-2023 End: 06-24-[address] Luis Caldera Work Phone: [facility] Start: 06-24-[address] Adam Caldera Work Phone: [facility] Start: 06-17-2023 End: 06-17-[address] Luis Caldera Work Phone: [facility] Work Phone: Start: 06-17-2023 End: 06-17-[address] Luis Caldera Work Phone: [facility] Start: 06-10-2023 End: 06-10-[address] Luis Caldera Work Phone: [facility] Work Phone: Start: 06-10-2023 End: 06-10-[address] Luis Caldera Work Phone: [facility] Start: 06-10-[address] [facility] Start: 06-03-2023 End: 06-03-2023 Admission to same day surgery center Dr. Luis Caldera Work Phone: [facility] Start: 06-03-2023 End: 06-03-[address] Luis Caldera Work Phone: [facility] Work Phone: Start: 06-03-2023 End: 06-03-2023 Dr. Luis Caldera Work Phone: [facility] Start: 05-20-2023 End: 05-20-[address] Luis Caldera Work Phone: [facility] Work Phone: Start: 05-20-2023 End: 05-20-[address] Luis Caldera Work Phone: [facility] Start: 05-20-2023 End: 05-20-2023 Dr. Luis Caldera Work Phone: [facility] Start: 05-15-2023 End: 05-15-[address] Luis Caldera Work Phone: [facility] Work Phone: Start: 05-15-2023 End: 05-15-[address] [facility] Calder[facility] Start: 05-15-2023 End: 05-15-2023 Dr. [facility] Calder[facility] Start: 05-06-2023 End: 05-06-[address] Luis Caldera Work Phone: [facility] Work Phone: Start: 05-06-2023 End: 05-06-[address] Luis Caldera Work Phone: [facility] Start: 05-06-2023 End: 05-06-2023 Dr. uLis Caldera Work Phone: [facility] Start: 04-29-2023 End: 04-29-[address] Maggy Roberts Work Phone: [facility] Work Phone: Start: 04-29-2023 End: 04-29-[address] Luis Caldera Work Phone: [facility] Start: 04-29-2023 End: 04-29-2023 Dr. Maggy Roberts Work Phone: [facility] Start: 04-15-2023 End: 04-15-[address] Luis Caldera Work Phone: [facility] Start: 04-15-2023 End: 04-15-2023 Dr. Maggy Roberts Work Phone: [facility] Start: 04-09-2023 End: 04-09-[address] Maggy Roberts Work Phone: [facility] Work Phone: Start: 04-09-2023 End: 04-09-[address] Luis Caldera Work Phone: [facility] Start: 04-09-2023 End: 04-09-2023 Dr. Maggy Roberts Work Phone: [facility] Start: 04-08-2023 End: 04-08-[address] Luis Caldera Work Phone: [facility] Start: 04-08-2023 End: 04-08-2023 Dr. Maggy Roberts Work Phone: [facility] Start: 04-01-2023 End: 04-01-[address] Maggy Roberts Work Phone: [facility] Work Phone: Start: 04-01-2023 End: 04-01-[address] Luis Caldera Work Phone: [facility] Start: 04-01-2023 End: 04-01-2023 Dr. Maggy Roberts Work Phone: [facility] Start: 03-27-2023 End: 03-27-[address] Luis Caldera Work Phone: [facility] Work Phone: Start: 03-27-2023 End: 03-27-2023 Dr. Maggy Roberts Work Phone: [facility] Work Phone: Start: 03-25-2023 End: 03-25-[address] Maggy Roberts Work Phone: [facility] Work Phone: Start: 03-25-2023 End: 03-25-[address] Luis Caldera Work Phone: [facility] Start: 03-25-2023 End: 03-25-2023 Dr. Maggy Roberts Work Phone: [facility] Start: 03-11-2023 End: 03-11-[address] Maggy Roberts Work Phone: [facility] Work Phone: Start: 03-11-2023 End: 03-11-[address] Luis Caldera Work Phone: [facility] Start: 03-11-2023 End: 03-11-2023 Dr. Maggy Roberts Work Phone: [facility] Start: 03-04-[address] Adam Caldera Work Phone: [facility] Start: 03-04-2023 Dr. Maggy benavides Work Phone: [facility] Start: 03-01-[address] Adam Caldera Work Phone: [facility] Start: 03-01-2023 Dr. Maggy benavides Work Phone: [facility] Start: 02-25-[address] Adam Caldera Work Phone: [facility] Start: 02-25-2023 Dr. Maggy Bonilla line Work Phone: [facility] Start: 02-22-[address] Adam Caldera Work Phone[facility] Start: 02-22-2023 Dr. Maggy Bonilla line Work Phone: [facility] Start: 02-20-2023 Dr. Maggy Bonilla line Work Phone: [facility] Start: 02-18-2023 End: 02-18-2023 Dr. Maggy Roberts Work Phone: [facility] Work Phone: Start: 02-14-2023 Dr. Maggy Bonilla line Work Phone: [facility] Start: 02-13-2023 Dr. Maggy Bonilla line Work Phone: [facility] Work Phone: Start: 02-12-2023 Dr. Maggy Bonilla line Work Phone: [facility] Work Phone: Start: 02-12-2023 Dr. Maggy Bonilla line Work Phone: [facility] Start: 02-11-2023 End: 02-13-2023 Evaluation and management of inpatient Dr. Maggy Roberts Work Phone: [facility] Work Phone: Start: 02-11-2023 End: 02-13-2023 Dr. Maggy Roberts Work Phone: [facility] Work Phone: Start: 02-10-2023 End: 02-11-2023 Emergency department patient visit Dr. Maggy Roberts Work Phone: [facility] Work Phone: Start: 02-10-2023 End: 02-11-2023 Dr. Maggy Roberts Work Phone: [facility] Work Phone: Start: 02-07-2023 Dr. Maggy Bonilla line Work Phone: [facility] Start: 02-05-2023 Dr. Maggy Bonilla line Work Phone: [facility] Work Phone: Start: 02-05-2023 End: 02-05-2023 Dr. Maggy Roberts Work Phone: [facility] Work Phone: Start: 02-04-2023 Dr. Maggy Bonilla line Work Phone: [facility] Work Phone: Start: 02-03-2023 End: 02-05-2023 Dr. Maggy Roberts Work Phone: [facility] Work Phone: Start: 02-02-2023 Dr. Maggy Bonilla line Work Phone: [facility] Work Phone: Start: 02-01-2023 Dr. Maggy Bonilla line Work Phone: [facility] Start: 02-01-2023 Dr. Maggy Bonilla line Work Phone: [facility] Work Phone: Start: 01-31-2023 Dr. Maggy Bonilla line Work Phone: [facility] Start: 01-31-2023 Dr. Maggy Bonilla line Work Phone: [facility] Work Phone: Start: 01-30-2023 Dr. Maggy Bonilla line Work Phone: [facility] Start: 01-30-2023 Dr. Maggy Bonilla line Work Phone: [facility] Start: 01-29-2023 Dr. Maggy Bonilla line Work Phone: [facility] Work Phone: Start: 01-29-2023 Dr. Maggy Bonilla line Work Phone: [facility] Start: 01-28-2023 Telephone encounter Luis Caldera MD Work Phone: [facility] Comment on above: Immunizations Start: 01-28-2023 Dr. Maggy Bonilla line Work Phone: [facility] Work Phone: Start: 01-28-2023 End: 01-28-2023 Dr. Maggy Roberts Work Phone: [facility] Work Phone: Start: 01-27-2023 Evaluation and management of [facility] Start: 01-27-2023 End: 02-05-2023 Dr[facility] Start: 01-26-2023 Non-patient / Non-visit Dr. Eddie Roberts Work Phone: [facility] Start: 01-26-2023 Dr. Maggy Bonilla line Work Phone: [facility] Start: 01-26-2023 Non-patient / Non-visit Dr. Eddie Roberts Work Phone: [facility] Work Phone: Start: 01-26-2023 Dr. Maggy Bonilla line Work Phone: [facility] Work Phone: Start: 01-25-2023 Non-patient / Non-visit Dr. Eddie Roberts Work Phone: [facility] Start: 01-25-2023 Dr. Maggy Bonilla line Work Phone: [facility] Start: 01-25-2023 Non-patient / Non-visit Dr. Eddie Roberts Work Phone: [facility] Work Phone: Start: 01-25-2023 Dr. Maggy Bonilla line Work Phone: [facility] Work Phone: Start: 01-24-2023 Non-patient / Non-visit Dr. Eddie Roberts Work Phone: [facility] Start: 01-24-2023 Dr. Maggy Bonilla line Work Phone: [facility] Start: 01-24-2023 Telephone encounter Luis Caldera MD Work Phone: [facility] Comment on above: Patient Update Start: 01-24-2023 Non-patient / Non-visit Dr. Eddie Roberts Work Phone: [facility] Start: 01-24-2023 Dr. Maggy benavides Work Phone: [facility] Start: 01-24-2023 Non-patient / Non-visit Dr. Eddie Roberts Work Phone: [facility] Work Phone: Start: 01-24-2023 End: 01-24-2023 Dr. Maggy Roberts Work Phone: [facility] Work Phone: Start: 01-23-2023 Non-patient / Non-visit Dr. Eddie Roberts Work Phone: [facility] Start: 01-23-2023 Dr. Maggy Bonilla line Work Phone: [facility] Start: 01-23-2023 Non-patient / Non-visit Dr. Eddie Roberts Work Phone: [facility] Start: 01-23-2023 Dr. Maggy Bonilla line Work Phone: [facility] Start: 01-22-2023 Non-patient / Non-visit Dr. Eddie Roberts Work Phone: [facility] Start: 01-22-2023 Dr. Maggy Bonilla line Work Phone: [facility] Start: 01-22-2023 Non-patient / Non-visit Dr. Eddie Roberts Work Phone: [facility] Start: 01-22-2023 Dr. Maggy Bonilla line Work Phone: [facility] Start: 01-22-2023 Non-patient / Non-visit Dr. Eddie Roberts Work Phone: [facility] Work Phone: Start: 01-22-2023 Dr. Maggy Bonilla line Work Phone: [facility] Work Phone: Start: 01-21-2023 End: 01-21-2023 Dr. Maggy Roberts Work Phone: [facility] Work Phone: Start: 01-21-2023 Non-patient / Non-visit Dr. Eddie Roberts Work Phone: [facility] Start: 01-21-2023 Dr. Maggy Bonilla line Work Phone: [facility] Start: 01-21-2023 Non-patient / Non-visit Dr. Eddie Roberts Work Phone: [facility] Work Phone: Start: 01-21-2023 Dr. Maggy Bonilla line Work Phone: [facility] Work Phone: Start: 01-21-2023 End: 01-26-2023 Evaluation and management of inpatient [facility] Mag[facility] Start: 01-21-2023 End: 01-26-2023 Dr[facility] Start: 01-08-2023 Non-patient / Non-visit Dr. Eddie Roberts Work Phone: [facility] Work Phone: Start: 01-08-2023 Dr. Maggy Bonilla line Work Phone: [facility] Work Phone: Start: 01-07-2023 Non-patient / Non-visit Dr. Eddie Roberts Work Phone: [facility] Work Phone: Start: 01-07-2023 Dr. Maggy Bonilla line Work Phone: [facility] Work Phone: Start: 01-06-2023 Non-patient / Non-visit Dr. Eddie Roberts Work Phone: [facility] Work Phone: Start: 01-06-2023 Dr. Maggy Bonilla line Work Phone: [facility] Work Phone: Start: 01-05-2023 End: 01-08-2023 Evaluation and management of inpatient [facility] Maggy Roberts [facility] Start: 01-05-2023 End: 01-08-2023 Dr. Mag[facility] Start: 01-05-2023 Non-patient / Non-visit Dr. Eddie Roberts Work Phone: [facility] Work Phone: Start: 01-05-2023 Dr. Maggy benavides Work Phone: [facility] Work Phone: Start: 01-04-2023 Evaluation and management of inpatient [facility] Start: 01-04-2023 Non-patient / Non-visit Dr. Eddie Roberts Work Phone: [facility] Work Phone: Start: 01-04-2023 observation encounter [facility] Work Phone: Start: 01-04-2023 Dr. Maggy benavides Work Phone: [facility] Work Phone: Start: 01-04-2023 Telephone encounter Luis Caldera MD Work Phone: [facility] Comment on above: Appointment Start: 01-03-2023 Telephone encounter Luis Caldera MD Work Phone: [facility] Comment on above: Appointment; Patient Update Start: 01-03-2023 End: 01-03-2023 ambulatory Justina Escoto PT [facility] Comment on above: Spinal stenosis, lum bar region, without neurogenic claudication (Primary Dx); Primary osteoarthritis of both knees Start: 12-31-2022 End: 12-31-2022 ambulatory Ira Ramos LEAD TECHNICAL WRITER Work Phone: [facility] Comment on above: Spinal stenosis, lum bar region, without neurogenic claudication (Primary Dx); Primary osteoarthritis of both knees Start: 12-27-2022 End: 12-27-2022 ambulatory Ira Ramos LEAD TECHNICAL WRITER Work Phone: [facility] Comment on above: Spinal stenosis, lum bar region, without neurogenic claudication (Primary Dx); Primary osteoarthritis of both knees Start: 12-24-2022 End: 12-24-2022 ambulatory Justina O'Rafa PT [facility] Comment on above: Spinal stenosis, lum bar region, without neurogenic claudication (Primary Dx); Primary osteoarthritis of both knees Start: 12-17-2022 End: 12-17-2022 ambulatory Justina O'Rafa PT [facility] Comment on above: Spinal stenosis, lum bar region, without neurogenic claudication (Primary Dx); Primary osteoarthritis of both knees Start: 12-14-2022 End: 12-14-2022 ambulatory Justina O'Rafa PT [facility] Comment on above: Spinal stenosis, lum bar region, without neurogenic claudication (Primary Dx); Primary osteoarthritis of both knees Start: 12-12-2022 End: 12-12-2022 ambulatory Justina O'Rafa PT [facility] Comment on above: Spinal stenosis, lum bar region, without neurogenic claudication (Primary Dx); Primary osteoarthritis of both knees Start: 11-20-2022 Refill Abdulzaiz Caldera MD Work Phone: [facility] Comment on above: Refill Request Start: 11-19-2022 Telephone encounter Valencia Pascual MA [facility] Comment on above: Anticoagulation Start: 10-22-2022 End: 10-22-2022 Patient encounter procedure Zachary Obregon Work Phone: Podiatry Comment on above: Onychomycosis (Prima ry Dx); Pain in toe of left foot; Amputated toe of right foot (HCC); Diabetic polyneuropathy associated with type 2 diabetes mellitus (HCC) Start: 09-25-2022 Telephone encounter Luis Caldera MD Work Phone: [facility] Comment on above: Anticoagulation Start: 09-07-2022 Telephone encounter Jojo galan MD Work Phone: Neurology Comment on above: Appointment Start: 09-07-2022 End: 09-07-2022 Office outpatient visit 25 minutes Jojo Kaur MD Work Phone: Neurology Comment on above: Driving safety issue (Primary Dx) Start: 08-28-2022 Telephone encounter Luis Caldera MD Work Phone: [facility] Comment on above: Anticoagulation Start: 08-16-2022 Refill Abdulaziz Caldera MD Work Phone: [facility] Comment on above: Refill Request Start: 08-14-2022 Telephone encounter Luis Caldera MD Work Phone: [facility] Comment on above: Anticoagulation Start: 08-09-2022 End: 08-09-2022 Patient encounter procedure Abdulaziz Caldera MD Work Phone: [facility] Comment on above: Type 2 diabetes [...] Telephone encounter Luis Caldera MD Work Phone: [facility] Comment on above: checking on medicati on Start: 08-06-2022 End: 08-06-2022 Patient encounter procedure Zachary Jaimes MD Work Phone: Otolaryngology Comment on above: Dizziness (Primary D x); Chronic frontal sinusitis Start: 07-31-2022 Telephone encounter Luis Caldera MD Work Phone: [facility] Comment on above: Anticoagulation Start: 07-26-2022 Telephone encounter Luis Caldera MD Work Phone: [facility] Comment on above: Home Health-Nursing Update Start: 07-25-2022 Refill Abdulaziz Caldera MD Work Phone: [facility] Comment on above: Refill Request Start: 07-17-2022 Telephone encounter Luis Caldera MD Work Phone: [facility] Comment on above: [facility] PT POC OT plan of care Start: 07-13-2022 Telephone encounter Luis Caldera MD Work Phone: [facility] Comment on above: Nursing Plan of C are Update Start: 07-12-2022 Telephone encounter Luis Caldera MD Work Phone: [facility] Comment on above: Orders Start: 07-11-2022 Non-patient / Non-visit Dr. Praveen Caldera Work Phone: [facility] Start: 07-11-2022 Non-patient / Non-visit Dr. Praveen Caldera Work Phone: [facility] Start: 07-10-2022 Non-patient / Non-visit Dr. Praveen Caldera Work Phone: [facility] Start: 07-10-2022 Non-patient / Non-visit Dr. Praveen Caldera Work Phone: [facility] Start: 07-09-2022 End: 07-11-2022 Evaluation and management of inpatient Dr. Luis Caldera Work Phone: [facility] Start: 07-09-2022 Refill Amanda [facility] Comment on above: Opened In Error Refill Request Start: 07-05-2022 E-mail encounter fro m caregiver Jojo Kaur MD Work Phone: [facility] Start: 07-05-2022 Patient encounter procedure Jojo Kaur MD Work Phone: Neurology Comment on above: Appointment Needs Re scheduled: 08/21/[address] Kaur Start: 06-25-2022 Refill Abdulaziz Caldera MD Work Phone: [facility] Comment on above: Refill Request Start: 05-16-2022 Refill Abdulzaiz Caldera MD Work Phone: [facility] Comment on above: Refill Request Start: 04-17-2022 Telephone encounter Justina fry PRINCIPAL JAVA DEVELOPER Work Phone: Adult Psychology Comment on above: behavioral health so cial work Start: 04-17-2022 End: 04-17-2022 Patient encounter procedure Jojo Kaur MD Work Phone: Neurology Comment on above: Generalized anxiety disorder (Primary Dx); Polyneuropathy Start: 04-16-2022 End: 04-16-2022 Patient encounter procedure Abdulaziz Caldera MD Work Phone: [facility] Comment on above: Type 2 diabetes almaz [...] encounter procedure Roselia Madrigal APRN.CNP Work Phone: [facility] Comment on above: Generalized weakness (Primary Dx); Encounter for immunization; Mild depression Start: 04-04-2022 Telephone encounter Luis Caldera MD Work Phone: [facility] Comment on above: Anticoagulation Start: 03-30-2022 End: 03-30-2022 Patient encounter procedure Zachary Obregon Work Phone: Podiatry Comment on above: Onychomycosis (Prima ry Dx); Pain in toe of left foot; Amputated toe of right foot (HCC); Diabetic polyneuropathy associated with type 2 diabetes mellitus (HCC) Start: 03-23-2022 End: 03-23-2022 ambulatory Rosa Elena Lemon PT [facility] Comment on above: Abnormality of gait due to impairment of balance (Primary Dx) Start: 03-22-2022 Refill Abdulaziz Caldera MD Work Phone: [facility] Comment on above: Refill Request Start: 03-15-2022 End: 03-15-2022 ambulatory Karen Gus LEAD TECHNICAL WRITER Work Phone: [facility] Comment on above: Abnormality of gait due to impairment of balance (Primary Dx) Start: 03-12-2022 End: 03-12-2022 ambulatory Karen Gus LEAD TECHNICAL WRITER Work Phone: [facility] Comment on above: Abnormality of gait due to impairment of balance (Primary Dx) Start: 03-09-2022 End: 03-09-2022 ambulatory Rosa Elena Lemon PT [facility] Comment on above: Abnormality of gait due to impairment of balance (Primary Dx) Start: 03-07-2022 Telephone encounter Luis Caldera MD Work Phone: [facility] Comment on above: Anticoagulation Start: 03-07-2022 End: 03-07-[address] Luis Caldera Work Phone: [facility] Work Phone: Start: 03-07-2022 End: 03-07-[address] Luis Caldera Work Phone: [facility]Laboratory, Specimen Start: 03-07-2022 End: 03-07-2022 Patient encounter procedure Abdulaziz Caldera MD Work Phone: [facility] Comment on above: Generalized weakness (Primary Dx); Supratherapeutic INR; ANTHONY (acute kidney injury) (HCC) Start: 03-05-2022 End: 03-05-2022 ambulatory Rosa Elena Lemon PT [facility] Comment on above: Abnormality of gait due to impairment of balance (Primary Dx) Start: 03-02-2022 End: 03-02-2022 Emergency department patient visit Dr. Luis Caldera Work Phone: [facility] Start: 03-02-2022 End: 03-02-2022 ambulatory Rosa Elena Lemon PT [facility] Comment on above: Abnormality of gait due to impairment of balance (Primary Dx) Start: 02-26-2022 End: 02-26-2022 ambulatory Rosa Elena Lemon PT [facility] Comment on above: Abnormality of gait due to impairment of balance (Primary Dx) Start: 02-23-2022 End: 02-23-2022 ambulatory Karen Weber LEAD TECHNICAL WRITER Work Phone: [facility] Comment on above: Abnormality of gait due to impairment of balance (Primary Dx) Start: 02-14-2022 End: 02-14-2022 ambulatory Rosa Elena Lemon PT [facility] Comment on above: Abnormality of gait due to impairment of balance (Primary Dx) Start: 02-09-2022 End: 02-09-2022 ambulatory Rosa Elena Lemon PT [facility] Comment on above: Abnormality of gait due to impairment of balance (Primary Dx) Start: 02-06-2022 Refill Abdulaziz Caldera MD Work Phone: [facility] Comment on above: Prescription Refills Start: 02-02-2022 End: 02-02-2022 ambulatory Karen Weber LEAD TECHNICAL WRITER Work Phone: [facility] Comment on above: Abnormality of gait due to impairment of balance (Primary Dx) Start: 01-31-2022 Refill Abdulaziz Caldera MD Work Phone: [facility] Comment on above: Refill Request Start: 01-30-2022 End: 01-30-2022 ambulatory Karen Weber LEAD TECHNICAL WRITER Work Phone: [facility] Comment on above: Abnormality of gait due to impairment of balance (Primary Dx) Start: 01-23-2022 End: 01-23-2022 ambulatory Karen Weber LEAD TECHNICAL WRITER Work Phone: [facility] Comment on above: Abnormality of gait due to impairment of balance (Primary Dx) Refill Request; Refi ll Request Start: 01-17-2022 Telephone encounter Luis Caldera MD Work Phone: [facility] Comment on above: Question Start: 01-12-2022 End: 01-12-2022 ambulatory Rosa Elena Poon PT [facility] Comment on above: Abnormality of gait due to impairment of balance (Primary Dx) Start: 01-11-2022 Telephone encounter Roselia miguel APRN.BAR ATTENDANT Work Phone: [facility] Comment on above: Patient Question; Me dication Question; Referral Request Start: 01-10-2022 Telephone encounter Justina Monique APRN.BAR ATTENDANT Work Phone: Cardiology Comment on above: Results [...] type Start: 01-02-2022 Telephone encounter Justina Monique APRN.BAR ATTENDANT Work Phone: 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 Praveen Caldera Work Phone: [facility] Start: 12-28-2021 Non-patient / Non-visit Dr. Praveen Caldera Work Phone: [facility] Start: 12-28-2021 End: 12-29-2021 Evaluation and management of inpatient Dr. Luis Caldera Work Phone: [facility] Start: 12-27-2021 Non-patient / Non-visit Dr. Praveen Caldera Work Phone: [facility] Start: 12-27-2021 End: 12-27-2021 Emergency department patient visit DR. MELANIA WORKMAN MD. Facility:[facility] Start: 12-27-2021 End: 12-27-2021 Emergency department patient visit DR MELANIA WORKMAN MD [facility] Start: 12-14-2021 End: 12-14-2021 Patient encounter procedure Abdulaziz Caldera MD Work Phone: [facility] Comment on above: COVID-19 (Primary Dx ) Start: 12-08-2021 End: 12-08-2021 ambulatory Abdulaziz Caldera MD Work Phone: [facility] Comment on above: COVID-19 (Primary Dx ) Start: 12-08-2021 End: 12-08-2021 Telemedicine consultation with patient Abdulaziz Caldera MD Work Phone: [facility] Start: 12-08-2021 Telephone encounter Luis Caldera MD Work Phone: [facility] Comment on above: Patient Question Start: 12-06-2021 End: 12-07-2021 Emergency department patient visit [facility] Start: 11-20-2021 Refill Abdulaziz Caldera [...] Abdulaziz Caldera MD Work Phone: [facility] Comment on above: Refill Request (SEE RX [...] QUADRIVALENT HIGH DOSE AGE 65+ Roselia Podlogar PHOTOGRAPHIC ARTIST.BAR ATTENDANT Work Phone: Start: 04-06-2022 [employer] COVID-19 BIVALENT BOOSTER VACCINE, AGE 12+ YR Roselia Podlogar PHOTOGRAPHIC ARTIST.BAR ATTENDANT Work Phone: Start: 04-06-2022 Adult depression screening assessment Roselia Podlogar PHOTOGRAPHIC ARTIST.BAR ATTENDANT Work Phone: Start: 03-07-2022 PROTHROMBIN TIME/PT Abdulaziz Caldera MD Work Phone: Start: 03-07-2022 Adult depression screening assessment Abdulaziz Caldera MD Work Phone: Start: 03-02-2022 CT of head without contrast Dr. Camron Caldera Work Phone: Start: 03-02-2022 Plain chest X-ray Dr. Luis Caldera Work Phone: Start: 01-09-2022 Echo tthrc r-t 2d w/wom-mode compl spec&colr d Justina Monique PHOTOGRAPHIC ARTIST.BAR ATTENDANT Work Phone: Start: 01-01-2022 Urnls dip stick/tablet [...] Activity Detail Author Start: 10-11-2031 Colonoscopy COLONOSCOPY [facility] Start: 10-11-2031 COLORECTAL CANCER SCREENING COLORECTAL CANCER SCREENING [facility] Start: 10-10-2024 Colonoscopy COLONOSCOPY [facility] Start: 10-10-2024 COLORECTAL CANCER SCREENING COLORECTAL CANCER SCREENING [facility] Start: 01-05-2024 ANNUAL PCP TEAM FACILITY MANAGER MARLENE DISEASE VISIT ANNUAL PCP TEAM CHRONIC DISEASE VISIT [facility] Start: 01-05-2024 BP CONTROLLED (<130/80) BP CONTROLLE D (<130/80) [facility] Start: 12-04-2023 BP CONTROLLED (<130/80) BP CONTROLLE D (<130/80) [facility] Start: 11-20-2023 ANNUAL PCP TEAM FACILITY MANAGER MARLENE DISEASE VISIT ANNUAL PCP TEAM CHRONIC DISEASE VISIT [facility] Start: 11-20-2023 BP CONTROLLED (<130/80) BP CONTROLLE D (<130/80) [facility] Start: 09-07-2023 BP CONTROLLED (<130/80) BP CONTROLLE D (<130/80) [facility] Start: 08-13-2023 HEMOGLOBIN/HEMATOCRIT HEMOGLOBIN/HEM ATOCRIT [facility] Start: 08-13-2023 SERUM CREATININE SERUM CREATININE Cl [facility] Start: 08-09-2023 ANNUAL PCP TEAM FACILITY MANAGER MARLENE DISEASE VISIT ANNUAL PCP TEAM CHRONIC DISEASE VISIT [facility] Start: 08-09-2023 BP CONTROLLED (<130/80) BP CONTROLLE D (<130/80) [facility] Start: 07-12-2023 ANNUAL PCP TEAM FACILITY MANAGER MARLENE DISEASE VISIT ANNUAL PCP TEAM CHRONIC DISEASE VISIT [facility] Start: 07-12-2023 BP CONTROLLED (<130/80) BP CONTROLLE D (<130/80) [facility] Start: 06-03-2023 Anes dx/ther nerve block/injection prone pos ANESTH N BLOCK/INJ PRONE [facility] Start: 06-03-2023 Njx dx/ther sbst int rlmnr lmbr/sac w/img gdn NJX INTERLAMINAR LMBR/SAC [facility] Start: 06-03-2023 Injection using fluoroscopic guidance [facility] Start: 06-03-2023 Patient discharge [facility] Start: 04-17-2023 BP CONTROLLED (<130/80) BP CONTROLLE D (<130/80) [facility] Start: 04-16-2023 ANNUAL PCP TEAM FACILITY MANAGER MARLENE DISEASE VISIT ANNUAL PCP TEAM CHRONIC DISEASE VISIT [facility] Start: 04-06-2023 Adult depression scr eening assessment DEPRESSION SCREENING [facility] Start: 04-06-2023 ANNUAL PCP TEAM FACILITY MANAGER MARLENE DISEASE VISIT ANNUAL PCP TEAM CHRONIC DISEASE VISIT [facility] Start: 04-06-2023 BP CONTROLLED (<130/80) BP CONTROLLE D (<130/80) [facility] Start: 03-30-2023 3 comp foot exam completed DIABETIC FOOT EXAM [facility] Start: 03-15-2023 Influenza vaccination INFLUENZA (#1) [facility] Start: 03-07-2023 Adult depression scr eening assessment DEPRESSION SCREENING [facility] Start: 03-07-2023 ANNUAL PCP TEAM FACILITY MANAGER MARLENE DISEASE VISIT ANNUAL PCP TEAM CHRONIC DISEASE VISIT [facility] Start: 03-07-2023 BP CONTROLLED (<130/80) BP CONTROLLE D (<130/80) [facility] Start: 03-07-2023 SERUM CREATININE SERUM CREATININE [facility] Start: 03-05-2023 BP CONTROLLED (<130/80) BP CONTROLLE D (<130/80) [facility] Start: 03-02-2023 Hepatitis B screening URINE ALBUMIN:CREATININE RATIO [facility] Start: 02-13-2023 Patient discharge [facility] Start: 02-12-2023 Care regimes management [facility] Start: 02-12-2023 Notification of physician [facility] Start: 02-12-2023 [facility] Start: 02-12-2023 Blood culture [facility] Start: 02-12-2023 End: 02-12-2023 [facility] Start: 02-11-2023 End: 02-11-2023 Blood culture [facility] Start: 02-11-2023 Assessment of risk o f venous thromboembolism [facility] Start: 02-11-2023 Consultation [facility] Start: 02-11-2023 Insertion of cathete r into peripheral vein [facility] Start: 02-11-2023 Providing care accor ding to standard [facility] Start: 02-11-2023 Provision of activit y privileges [facility] Start: 02-11-2023 Referral to occupati onal therapist [facility] Start: 02-11-2023 Referral to service [facility] Start: 02-11-2023 [facility] Start: 02-11-2023 Admission procedure [facility] Start: 02-11-2023 [facility] Start: 02-11-2023 Patient referral to dietitian [facility] Start: 02-10-2023 End: 02-10-2023 [facility] Start: 02-10-2023 End: 02-10-2023 Blood culture [facility] Start: 02-10-2023 Hemoglobin A1c/Hemoglobin.total in Blood HBA1C [facility] Start: 02-05-2023 Patient discharge [facility] Start: 02-04-2023 Assessment of risk o f venous thromboembolism [facility] Start: 02-04-2023 Bedrest [facility] Start: 02-04-2023 Elevation of head of bed [facility] Start: 02-04-2023 Taking patient vital signs [facility] Start: 02-04-2023 Wound care [facility] Start: 02-04-2023 [facility] Start: 02-04-2023 Catheterization of vein [facility] Start: 02-04-2023 Notification of physician [facility] Start: 02-04-2023 [facility] Start: 02-01-2023 Catheterization of vein [facility] Start: 02-01-2023 Notification of physician [facility] Start: 02-01-2023 [facility] Start: 02-01-2023 [facility] Start: 01-30-2023 Referral to processor inspector [facility] Start: 01-30-2023 End: 01-30-2023 Administration of blood product [facility] Start: 01-29-2023 Speech therapy assessment [facility] Start: 01-29-2023 [facility] Start: 01-28-2023 End: 01-29-2023 [facility] Start: 01-27-2023 Application of intermittent pneumatic compression device [facility] Start: 01-27-2023 Following clinical p athway protocol [facility] Start: 01-27-2023 Methicillin resistan t Staphylococcus aureus screening test [facility] Start: 01-27-2023 Aspiration precautions [facility] Start: 01-27-2023 Assessment of risk o f venous thromboembolism [facility] Start: 01-27-2023 Care regimes management [facility] Start: 01-27-2023 Fall prevention [facility] Start: 01-27-2023 Insertion of cathete r into peripheral vein [facility] Start: 01-27-2023 Introduction of urin barrington catheter [facility] Start: 01-27-2023 Measuring intake and output [facility] Start: 01-27-2023 Providing care accor ding to standard [facility] Start: 01-27-2023 Provision of activit y privileges [facility] Start: 01-27-2023 Referral to gastroenterology service [facility] Start: 01-27-2023 Referral to occupati onal therapist [facility] Start: 01-27-2023 Referral to service [facility] Start: 01-27-2023 [facility] Start: 01-27-2023 Admission procedure [facility] Start: 01-27-2023 CT Chest and Abdomen and Pelvis WO and W contrast IV [facility] Start: 01-27-2023 CT of thorax, abdome n and pelvis with contrast CTA Chst, Abd, Pel W and/or WO [facility] Start: 01-27-2023 Blood chemistry [facility] Start: 01-27-2023 End: 01-28-2023 [facility] Start: 01-27-2023 Patient referral to dietitian [facility] Start: 01-26-2023 Patient discharge [facility] Start: 01-24-2023 Speech therapy assessment [facility] Start: 01-24-2023 Speech therapy assessment [facility] Start: 01-22-2023 Referral to processor inspector [facility] Start: 01-21-2023 Administration of bl ood product [facility] Start: 01-21-2023 Catheterization of vein [facility] Start: 01-21-2023 Application of intermittent pneumatic compression device [facility] Start: 01-21-2023 Following clinical p athway protocol [facility] Start: 01-21-2023 Care regimes management [facility] Start: 01-21-2023 Notification of physician [facility] Start: 01-21-2023 Cardiac monitoring [facility] Start: 01-21-2023 Referral to gastroenterology service [facility] Start: 01-21-2023 End: 01-21-2023 [facility] Start: 01-21-2023 Oxygen therapy [facility] Start: 01-21-2023 Ambulation without limitation [facility] Start: 01-21-2023 Documentation procedure [facility] Start: 01-21-2023 Assessment of risk o f venous thromboembolism [facility] Start: 01-21-2023 Continuous pulse oximetry [facility] Start: 01-21-2023 Insertion of cathete r into peripheral vein [facility] Start: 01-21-2023 Measuring intake and output [facility] Start: 01-21-2023 Providing care accor ding to standard [facility] Start: 01-21-2023 Referral to occupati onal therapist [facility] Start: 01-21-2023 Referral to service [facility] Start: 01-21-2023 Verification routine [facility] Start: 01-21-2023 Vital signs measurements [facility] Start: 01-21-2023 Admission procedure [facility] Start: 01-21-2023 Transfusion of red b lood cells [facility] Start: 01-08-2023 Patient discharge [facility] Start: 01-05-2023 BP CONTROLLED (<130/80) BP CONTROLLE D (<130/80) [facility] Start: 01-05-2023 Admission procedure [facility] Start: 01-05-2023 Telepractice consultation [facility] Start: 01-04-2023 Application of intermittent pneumatic compression device [facility] Start: 01-04-2023 Following clinical p athway protocol [facility] Start: 01-04-2023 Aspiration precautions [facility] Start: 01-04-2023 Assessment of risk o f venous thromboembolism [facility] Start: 01-04-2023 Cardiac monitoring [facility] Start: 01-04-2023 Care regimes management [facility] Start: 01-04-2023 Catheterization of vein [facility] Start: 01-04-2023 Elevation of head of bed [facility] Start: 01-04-2023 Exercises [facility] Start: 01-04-2023 Fall prevention [facility] Start: 01-04-2023 Inhalation therapy procedure [facility] Start: 01-04-2023 Insertion of cathete r into peripheral vein [facility] Start: 01-04-2023 Introduction of urin barrington catheter [facility] Start: 01-04-2023 Measuring intake and output [facility] Start: 01-04-2023 Notification of physician [facility] Start: 01-04-2023 Providing care accor ding to standard [facility] Start: 01-04-2023 Provision of activit y privileges [facility] Start: 01-04-2023 Referral to occupati onal therapist [facility] Start: 01-04-2023 Referral to service [facility] Start: 01-04-2023 Tobacco use cessatio n education [facility] Start: 01-04-2023 Verification routine [facility] Start: 01-04-2023 Admission procedure [facility] Start: 01-04-2023 End: 01-04-2023 [facility] Start: 01-04-2023 End: 01-04-2023 Blood culture [facility] Start: 01-04-2023 Patient referral to dietitian [facility] Start: 01-01-2023 ANNUAL PCP TEAM FACILITY MANAGER MARLENE DISEASE VISIT ANNUAL PCP TEAM CHRONIC DISEASE VISIT [facility] Start: 01-01-2023 BP CONTROLLED (<130/80) BP CONTROLLE D (<130/80) [facility] Start: 01-01-2023 Hepatitis B surface antibody level LDL CHOLESTEROL [facility] Start: 01-01-2023 SERUM CREATININE SERUM CREATININE Cl [facility] Start: 12-14-2022 ANNUAL PCP TEAM FACILITY MANAGER MARLENE DISEASE VISIT ANNUAL PCP TEAM CHRONIC DISEASE VISIT [facility] Start: 12-08-2022 ANNUAL PCP TEAM FACILITY MANAGER MARLENE DISEASE VISIT ANNUAL PCP TEAM CHRONIC DISEASE VISIT [facility] Start: 12-08-2022 BP CONTROLLED (<130/80) BP CONTROLLE D (<130/80) [facility] Start: 09-06-2022 ANNUAL PCP TEAM FACILITY MANAGER MARLENE DISEASE VISIT ANNUAL PCP TEAM CHRONIC DISEASE VISIT [facility] Start: 09-02-2022 Hemoglobin A1c/Hemoglobin.total in Blood HBA1C [facility] Start: 08-30-2022 SERUM CREATININE SERUM CREATININE Cl [facility] Start: 08-09-2022 End: 10-09-2022 CBC W Auto Differential panel - Blood CBC + DIFF Lab Routine Type 2 diabetes mellitus with diabetic neuropathy, with long-term current use of insulin (HCC) Expected: 08/09/2022, Expires: 10/09/2022 [facility] Work Phone: Comment on above: Expected: 08/09/2022 , Expires: 10/09/2022 Start: 08-09-2022 End: 10-09-2022 Comprehensive metabolic 2000 panel - Serum or Plasma COMP METABOLIC PANEL Lab Routine Type 2 diabetes mellitus with diabetic neuropathy, with long-term current use of insulin (HCC) Expected: 08/09/2022, Expires: 10/09/2022 [facility] Work Phone: Comment on above: Expected: 08/09/2022 , Expires: 10/09/2022 Start: 08-09-2022 End: 10-09-2022 Hemoglobin A1c in Blood HGB A1C Lab Routine Type 2 diabetes mellitus with diabetic neuropathy, with long-term current use of insulin (HCC) Expected: 08/09/2022, Expires: 10/09/2022 [facility] Work Phone: Comment on above: Expected: 08/09/2022 , Expires: 10/09/2022 Start: 08-06-2022 COVID-19 VACCINE (6 - Pfizer series) COVID-19 VACCINE (6 - Pfizer series) [facility] Start: 07-15-2022 ADVANCE DIRECTIVE DISCUSSION ADVANCE DIRECTIVE DISCUSSION [facility] Start: 07-15-2022 DEPRESSION ASSESSMENT DEPRESSION ASS ESSMENT [facility] Start: 07-11-2022 [facility] Start: 07-11-2022 Referral to service [facility] Work Phone: Start: 07-10-2022 [facility] Work Phone: Start: 07-10-2022 Following clinical p athway protocol [facility] Work Phone: Start: 07-10-2022 Assessment of risk o f venous thromboembolism [facility] Work Phone: Start: 07-10-2022 Cardiac monitoring [facility] Work Phone: Start: 07-10-2022 Care regimes management [facility] Work Phone: Start: 07-10-2022 Catheterization of vein [facility] Work Phone: Start: 07-10-2022 Continuous pulse oximetry [facility] Work Phone: Start: 07-10-2022 Elevation of head of bed [facility] Work Phone: Start: 07-10-2022 Exercises [facility] Work Phone: Start: 07-10-2022 Fall prevention [facility] Work Phone: Start: 07-10-[address]ed interventions [facility] Work Phone: Start: 07-10-2022 Incentive spirometry [facility] Work Phone: Start: 07-10-2022 Insertion of cathete r into peripheral vein [facility] Work Phone: Start: 07-10-2022 Introduction of urin barrington catheter [facility] Work Phone: Start: 07-10-2022 Measuring intake and output [facility] Work Phone: Start: 07-10-2022 Notification of physician [facility] Work Phone: Start: 07-10-2022 Oxygen therapy [facility] Work Phone: Start: 07-10-2022 Providing care accor ding to standard [facility] Work Phone: Start: 07-10-2022 Provision of activit y privileges [facility] Work Phone: Start: 07-10-2022 Referral to processor inspector [facility] Work Phone: Start: 07-10-2022 Referral to occupati onal therapist [facility] Work Phone: Start: 07-10-2022 Referral to service [facility] Work Phone: Start: 07-10-2022 Tobacco use cessatio n education [facility] Work Phone: Start: 07-10-2022 [facility] Work Phone: Start: 07-10-2022 Patient referral to dietitian [facility] Work Phone: Start: 07-09-2022 Admission procedure [facility] Work Phone: Start: 03-15-2022 HEMOGLOBIN/HEMATOCRIT HEMOGLOBIN/HEM ATOCRIT [facility] Start: 03-15-2022 Influenza vaccination INFLUENZA (#1) [facility] Start: 03-07-2022 End: 05-07-2022 Comprehensive metabolic 2000 panel - Serum or Plasma [facility] Work Phone: Comment on above: Expected: 03/07/2022 , Expires: 05/07/2022 Start: 03-02-2022 [facility] Work Phone: Start: 02-27-2022 Hemoglobin A1c/Hemoglobin.total in Blood HBA1C [facility] Start: 02-20-2022 Hepatitis C antibody , confirmatory test DILATED RETINAL EXAM [facility] Start: 01-30-2022 End: 04-01-2022 ALBUMIN/CREAT RATIO RND UR ALBUMIN/CREAT RATIO RND UR Lab Routine Type 2 diabetes mellitus with stage 3 chronic kidney disease, with long-term current use of insulin (HCC) Expected: 01/30/2022, Expires: 04/01/2022 [facility] Work Phone: Comment on above: Expected: 01/30/2022 , Expires: 04/01/2022 Start: 01-30-2022 End: 04-01-2022 Hemoglobin A1c in Blood HGB A1C Lab Routine Type 2 diabetes mellitus with stage 3 chronic kidney disease, with long-term current use of insulin (HCC) Expected: 01/30/2022, Expires: 04/01/2022 [facility] Work Phone: Comment on above: Expected: 01/30/2022 , Expires: 04/01/2022 Start: 01-30-2022 End: 04-01-2022 SCHEDULE LAB TESTING SCHEDULE LAB TESTING Lab Routine Expected: 01/30/2022, Expires: 04/01/2022 [facility] Work Phone: Comment on above: Expected: 01/30/2022 , Expires: 04/01/2022 Start: 01-05-2022 End: 03-07-2022 Magnesium [Mass/volume] in Serum or Plasma MAGNESIUM BLD Lab Routine Altered mental status, unspecified altered mental status type Expected: 01/05/2022, Expires: 03/07/2022 [facility] Work Phone: Comment on above: Expected: 01/05/2022 , Expires: 03/07/2022 Start: 01-05-2022 End: 03-07-2022 Methylmalonate [Moles/volume] in Serum or Plasma METHYLMALONIC ACID Lab Routine Altered mental status, unspecified altered mental status type Expected: 01/05/2022, Expires: 03/07/2022 [facility] Work Phone: Comment on above: Expected: 01/05/2022 , Expires: 03/07/2022 Start: 01-01-2022 End: 03-03-2022 25-hydroxyvitamin D3 [Mass/volume] in Serum or Plasma [facility] Work Phone: Comment on above: Expected: 01/01/2022 , Expires: 03/03/2022 Start: 01-01-2022 End: 03-03-2022 Lipid 1996 panel - Serum or Plasma [facility] Work Phone: Comment on above: Expected: 01/01/2022 , Expires: 03/03/2022 Start: 12-30-2021 Blood chemistry [facility] Work Phone: Start: 12-29-2021 Patient discharge [facility] Work Phone: Start: 12-28-2021 Admission procedure [facility] Work Phone: Start: 12-27-2021 End: 12-28-2021 [facility] Work Phone: Start: 12-27-2021 Oxygen therapy [facility] Work Phone: Start: 12-27-2021 Incentive spirometry [facility] Work Phone: Start: 12-27-2021 Admission procedure [facility] Work Phone: Start: 12-27-2021 Assessment of risk o f venous thromboembolism [facility] Work Phone: Start: 12-27-2021 Following clinical p athway protocol [facility] Work Phone: Start: 12-27-2021 Insertion of cathete r into peripheral vein [facility] Work Phone: Start: 12-27-2021 Measuring intake and output [facility] Work Phone: Start: 12-27-2021 Providing care accor ding to standard [facility] Work Phone: Start: 12-27-2021 End: 12-27-2021 Referral to service [facility] Work Phone: Start: 12-06-2021 Bacteria identified in Blood by Culture Blood Culture [facility] Work Phone: Start: 11-23-2021 3 comp foot exam completed DIABETIC FOOT EXAM [facility] Start: 11-16-2021 Hepatitis B screening URINE ALBUMIN:CREATININE RATIO [facility] Start: 11-16-2021 Hepatitis B surface antibody level LDL CHOLESTEROL [facility] Start: 10-28-2021 Adult depression scr eening assessment DEPRESSION SCREENING [facility] Start: 09-15-2021 COVID-19 VACCINE (4 - Booster for Pfizer series) COVID-19 VACCINE (4 - Booster for Pfizer series) [facility] Start: 07-15-2021 ADVANCE DIRECTIVE DISCUSSION ADVANCE DIRECTIVE DISCUSSION [facility] Start: 07-15-2021 DEPRESSION ASSESSMENT DEPRESSION ASS ESSMENT [facility] Start: 03-12-2021 Colonoscopy COLONOSCOPY [facility] Start: 03-12-2021 COLORECTAL CANCER SCREENING COLORECTAL CANCER SCREENING [facility] Start: 12-25-2020 Urine microalbumin profile DTA P,TDAP,TD (3 - Td or Tdap) [facility] Start: 10-12-1992 COLOGUARD (FIT-DNA) COLOGUARD (FIT-D NA) [facility] Start: 10-12-[address] [facility] Start: 10-12-1992 FECAL OCCULT BLOOD FECAL OCCULT BLOO D [facility] Start: 10-12-1992 SIGMOIDOSCOPY SIGMOIDOSCOPY [facility] Start: 10-12-1965 BP CONTROLLED (<130/80) BP CONTROLLE D (<130/80) [facility] Alanine aminotransfe rase [Enzymatic activity/volume] in Serum or Plasma [facility] Aspartate aminotrans ferase [Enzymatic activity/volume] in Serum or Plasma [facility] Bacteria identified in Blood by Culture Blood Culture [facility] Bacteria identified in Urine by Culture Urine Culture [facility] Creatine kinase [Enz ymatic activity/volume] in Serum or Plasma [facility] End: 01-05-2023 EPIL EEG ROUTINE EPIL EEG ROUTINE NEUROLOGY Routine Altered mental status, unspecified altered mental status type 1 Occurrences starting 01/05/2022 until 01/05/2023 [facility] Work Phone: Comment on above: 1 Occurrences starti ng 01/05/2022 until 01/05/2023 Lipid 1996 panel - S chavez or Plasma [facility] Magnesium [Mass/volu me] in Serum or Plasma [facility] Magnesium [Mass/volu me] in Serum or Plasma [facility] Patient Education [facility] Work Phone: Patient referral [facility] Work Phone: PT PLAN OF CARE CERTIFICATION PT PLAN OF CARE CERTIFICATION Procedures Routine Abnormality of gait due to impairment of balance Ordered: 01/12/2022 [facility] Comment on above: Ordered: 01/12/2022 PT PLAN OF CARE CERTIFICATION PT PLAN OF CARE CERTIFICATION Procedures Routine Abnormality of gait due to impairment of balance Ordered: 03/09/2022 [facility] Comment on above: Ordered: 03/09/2022 SURGICAL PATHOLOGY [facility] Work Phone: Comment on above: Release Upon Orderin g for 1 Occurrences starting 10/10/2021, 1 completed [facility] Immunizations Immunization Date Immunization Notes Care Provider [facility] 04-06-2022 COVID-19 booster vaccine, age 12+ yr, bivalent (PFIZER-BIONTECH) Roselia Raglandlogdavid PHOTOGRAPHIC ARTIST.BAR ATTENDANT Work Phone: [facility] 04-06-2022 Influenza, high dose seasonal Dr. Luis Caldera MD Work Phone: [facility] 04-06-2022 influenza, high dose seasonal, preservative-free Dr. Maggy Roberts Work Phone: [facility] 04-06-2022 influenza, high-dose , quadrivalent vaccine (FLUZONE HIGH DOSE QUADRIVALENT) Roselia Madrigal PHOTOGRAPHIC ARTIST.BAR ATTENDANT Work Phone: [facility] 03-28-2022 influenza, injectabl e, quadrivalent, preservative free Dr. Maggy Roberts Work Phone: [facility] 03-28-2022 influenza, seasonal, injectable Dr. Maggy Roberts Work Phone: [facility] 06-14-2021 Influenza, high dose seasonal Dr. Luis Caldera MD Work Phone: [facility] 06-14-2021 influenza, high dose seasonal, preservative-free Dr. Maggy Roberts Work Phone: [facility] 06-14-2021 influenza, high-dose , quadrivalent vaccine (FLUZONE HIGH DOSE QUADRIVALENT) Abdulaziz Caldera MD Work Phone: [facility] Work Phone: 05-18-2021 Covid (Pfizer) Dr. Maggy Roberts Work Phone: [facility] 02-24-2021 zoster vaccine recombinant Abdulaziz Caldera MD Work Phone: [facility] 12-13-2020 Covid (Pfizer) Dr. Ramón Caldera Work Phone: [facility] 09-30-2020 COVID-19 vaccine, ag e 12+ yr (PFIZER-BIONTECH - PURPLE TOP) Abdulaziz Caldera MD Work Phone: [facility] 09-09-2020 COVID-19 vaccine, ag e 12+ yr (PFIZER-BIONTECH - PURPLE TOP) Abdulaziz Caldera MD Work Phone: [facility] 04-16-2020 Influenza, high dose seasonal Dr. Luis Caldera MD Work Phone: [facility] 04-16-2020 influenza, high dose seasonal, preservative-free Dr. Maggy Roberts Work Phone: [facility] 04-16-2020 influenza, high-dose , quadrivalent vaccine (FLUZONE HIGH DOSE QUADRIVALENT) Abdulaziz Caldera MD Work Phone: [facility] 03-14-2020 zoster vaccine recombinant Abdulaziz Caldera MD Work Phone: [facility] Work Phone: 04-02-2019 Influenza, high dose seasonal Dr. Luis Caldera MD Work Phone: [facility] 04-02-2019 influenza, high dose seasonal, preservative-free Abdulaziz Caldera MD Work Phone: [facility] Work Phone: 05-08-2018 Influenza virus vaccine [facility] 04-15-2018 Influenza, high dose seasonal Dr. Luis Caldera MD Work Phone: [facility] 04-15-2018 influenza, high dose seasonal, preservative-free Abdulaziz Caldera MD Work Phone: [facility] 06-13-2017 Influenza, high dose seasonal Dr. Luis Caldera MD Work Phone: [facility] 06-13-2017 influenza, high dose seasonal, preservative-free Abdulaziz Caldera MD Work Phone: [facility] 06-20-2016 influenza, high dose seasonal, preservative-free Abdulaziz Caldera MD Work Phone: [facility] 11-24-2015 pneumococcal polysaccharide vaccine, 23 valent Abdulaziz aCldera MD Work Phone: [facility] 05-16-2015 Influenza, high dose seasonal Dr. Luis Caldera MD Work Phone: [facility] 05-16-2015 influenza, high dose seasonal, preservative-free Abdulaziz Caldera MD Work Phone: [facility] 10-27-2014 pneumococcal conjuga te vaccine, 13 valent Abdulaziz Caldera MD Work Phone: [facility] 10-27-2014 zoster vaccine, live Socrates Caldera MD Work Phone: [facility] 04-14-2013 Influenza virus vaccine [facility] 06-11-2011 influenza virus vaccine, unspecified formulation Abdulaziz Caldera MD Work Phone: [facility] 12-25-2010 tetanus toxoid, redu veronika diphtheria toxoid, and acellular pertussis vaccine, adsorbed Abdulaziz Caldera MD Work Phone: [facility] 04-25-2009 pneumococcal polysaccharide vaccine, 23 valent Abdulaziz Caldera MD Work Phone: [facility] 03-21-2000 diphtheria and tetan us toxoids, adsorbed for pediatric use Abdulaziz Caldera MD Work Phone: [facility] Work Phone: 02-11-1961 poliovirus vaccine, inactivated Christopher Bursley MD Work Phone: [facility] Work Phone: 03-25-1959 poliovirus vaccine, inactivated Abdulaziz Caldera MD Work Phone: [facility] Work Phone: 10-16-1956 poliovirus vaccine, inactivated Abdulaziz Caldera MD Work Phone: [facility] Work Phone: 01-12-1956 poliovirus vaccine, inactivated Abdulaziz Caldera MD Work Phone: [facility] Work Phone: 12-03-1955 poliovirus vaccine, inactivated Abdulaziz Caldera MD Work Phone: [facility] Work Phone: Payers Date Payer Category Payer Self-pay [id number] 2021 Medicare [id number] 2021 Unknown [id number] 2012 Unknown HOSPITAL/MEDICAL GENERIC MEDICAL GENERIC [id number] 2012-Present [phone] [address] [place] [address] Indemnity [id number] 2012 Unknown HOSPITAL/MEDICAL GENERIC MEDICAL GENERIC [id number] 2012-Present [phone] [address] [place] [address] Indemnity [id number] 2012 Medicare MEDICARE MEDICAR E A AND B [id number] 2012-Present [phone] [place] [address] Medicare [id number] 2012 Medicare MEDICARE MEDICAR E A AND B [id number] 2012-Present [phone] [address] [address] [place] [address] Medicare [id number] 1945 Unknown [id number] [id number]7 Unknown [id number] 2.16.840.1.333589.3.579.2.462 Unknown [id number] 2.16.840.1.510516.3.579.2.462 Unknown [id number] 2.16.840.1.728722.3.579.2.462 Unknown [id number] 2.16.840.1.283686.3.579.2.462 Unknown [id number] 2.16.840.1.272442.3.579.2.462 Unknown [id number] 2.16.840.1.893287.3.579.2.462 Unknown [id number] 2.16.840.1.743653.3.579.2.462 Unknown [id number] 2.16.840.1.415984.3.579.2.462 Unknown [id number] 2.16.840.1.803595.3.579.2.462 Unknown [id number] 2.16.840.1.660065.3.579.2.462 Unknown [id number] 2.16.840.1.075084.3.579.2.462 Unknown [id number] 2.16.840.1.934851.3.579.2.462 Unknown [id number] 2.16.840.1.889716.3.579.2.462 Unknown [id number] 2.16.840.1.212012.3.579.2.462 Unknown [id number] 2.16840.1.628355.3.579.2.462 Unknown [id number] 2.16840.1.066417.3.579.2.462 Unknown [id number] 2.16840.1.849871.3.579.2.462 Unknown [id number] 2.16840.1.812629.3.579.2.462 Unknown [id number] 2.16840.1.361489.3.579.2.462 Unknown [id number] 2.840.1.974956.3.579.2.462 Unknown [id number] 2.840.1.335531.3.579.2.462 Unknown [id number] 2.840.1.923137.3.579.2.462 Unknown [id number] 2.840.1.879631.3.579.2.462 Unknown [id number] 2.840.1.013702.3.579.2.462 Unknown [id number] 2.840.1.649741.3.579.2.462 Unknown [id number] 2.840.1.446733.3.579.2.462 Unknown [id number] 2.840.1.465206.3.579.2.462 Unknown [id number] 2.840.1.144978.3.579.2.462 Unknown [id number] 2.840.1.461610.3.579.2.462 Social History Date Type Detail Facility Start: 11-23-2020 End: 10-07-2023 Tobacco smoking status PAIS Never smoked tobacco [facility] Start: 09-06-2021 End: 12-03-2022 Alcohol intake Current non-drinker of alcohol (finding) [facility] Start: 1945 Sex Assigned At Not on file [facility] Start: 08-07-2021 End: 04-17-2022 Exposure to SARS-CoV-2 (event) Not sure [facility] Start: 12-06-2021 End: 05-30-2023 Tobacco smoking status NHIS Unknown if ever smoked [facility] Start: 01-10-2019 Spouse/ Signif icant Other [facility] Start: 1945 Sex Assigned At Male [facility] Work Phone: Tobacco smoking status No Smokin g Status Entered [facility] Start: 01-02-2022 End: 01-12-2022 Exposure to SARS-CoV-2 (event) Unable to assess [facility] Work Phone: Start: 11-23-2020 End: 04-06-2022 Tobacco use and exposure Smokeless tobacco non-user [facility] Work Phone: Start: 09-16-2013 Rare [facility] Start: 09-16-2013 None [facility] Start: 09-16-2013 Non-smoker [facility] Start: 11-19-2022 End: 12-03-2022 History of Social function [facility] Work Phone: Start: 11-19-2022 End: 12-03-2022 Tobacco use panel [facility] Work Phone: Adult Depression Screening Assessment 2 [facility] Work Phone: Start: 10-15-2024 End: 10-22-2024 Sex Male (finding) [facility] Medical Equipment Procedure Code Equipment Code [...] ABS FDA Start: 03-28-2018 FDA Start: 03-28-2018 ([id number]) [id number] FDA Start: 02-04-2023 ([id number]) ()[id number] FDA Start: 02-04-2023 ([id number]) ()[id number] FDA Start: 02-04-2023 FDA Start: 03-28-2018 [...] Assessment Result Facility 02-13-2023 Functional status Bedrest [facility] Work Phone: 02-05-2023 Functional status Chair [facility] Work Phone: 02-04-2023 Functional status Bedrest [facility] Work Phone: 01-26-2023 Functional status Chair mode [facility] Work Phone: 01-26-2023 Functional status With Assist of 2;Bedres t [facility] Work Phone: 01-25-2023 Functional status None [facility] Work Phone: 01-08-2023 Functional status Chair [facility] Work Phone: 07-11-2022 Functional status Ambulates [facility] Work Phone: 12-29-2021 Functional status Chair [facility] Work Phone: Mental Status Date Assessment Result Facility 06-03-2023 Cognitive function Voice/Name [facility] Work Phone: 02-13-2023 Cognitive function Voice/Name [facility] Work Phone: 02-11-2023 Cognitive function Awake;Drowsy [facility] Work Phone: 02-10-2023 Cognitive function Awake;Appropr iate;Follows Commands;Drowsy [facility] Work Phone: 02-05-2023 Cognitive function Voice/Name [facility] Work Phone: 02-04-2023 Cognitive function Appropriate;[facility] Work Phone: 01-26-2023 Cognitive function Voice/Name [facility] Work Phone: 01-21-2023 Cognitive function Level Of Cons ciousness Drowsy;Lethargic [facility] Work Phone: 01-08-2023 Cognitive function Voice/Name [facility] Work Phone: 01-04-2023 Cognitive function Voice/Name [facility] Work Phone: 07-11-2022 Cognitive function Voice/Name [facility] Work Phone: 07-10-2022 Cognitive function Appropriate;[employer] [facility] Work Phone: 03-02-2022 Cognitive function Voice/Name [facility] Work Phone: 12-29-2021 Cognitive function Voice/Name [facility] Work Phone: 12-06-2021 Cognitive function Level Of Cons ciousness Awake;Alert;Appropriate [facility] Work Phone: Clinical Notes 10-25-2014 to 10-12-2024 Note Date & Type Note Facility 10-12-2024 Evaluation note Diagnosis Onset Date Resolution Presence of cardiac pacemaker acute October 12, 2024 1:09pm Atrial fibrillation chronic October 12, 2024 1:09pm Diabetes chronic October 12 1:09pm HLD (hyperlipidemia) chronic [place] 2024 1:09pm HTN (hypertension) chronic October 12, 2024 1:09pm Sick sinus syndrome chronic October 12, 2024 1:09pm [facility] Work Phone: 1(834) 625-258411-20-2023 Procedure [facility] 02-13-2023 Consult note Author Haile Bautista [facility] February 13, 2023 2:50pm Note Date/Time February 13, 2023 2:5 0pm [facility] Medical Records Department [address] [place] [address] Counseling Note - Pharmacy 02/13/23 1449 MR#: [id number] Acct: [id number] Name: RICHARD ROY Rep #:[id number] : 1945 77 From: Haile Bautista PCP: Dr. Luis Caldera MD Status :ADM IN Y [id number] [place] Med Reconciliation Pharmacy Service has performed discharge [...] Signature (if applicable): Date CC: ~ Signed [facility] Work Phone: 1(103) 872-119808-02-2023 Discharge summary Author Gabriel Giraldo [facility] February 13, 2023 2:24pm Note Date/Time February 13, 2023 2:1 5pm [facility] Medical Records Department [address] [place] [address] Transfer to [facility] MR#: [id number] Acct: [id number] Name: RICHARD ROY Rep #:[id number] : 1945 77 From: Gabriel Giraldo DO PCP: Dr. Luis Caldera MD Status :ADM IN Certification of patient admission REQUIRED AT TIME OF ADMISSION. I CERTIFY THAT POST-HOSPITAL ECF SERVICES ARE REQUIRED TO BE GIVEN ON AN IN-PATIENT BASIS BECAUSE OF THE ABOVE NAMED PATIENT'S NEED FOR LONG-TERM CARE ON A CONTINUING BASIS FOR THE [...] Attending Provider: Gabriel Giraldo Primary Care Provider: Lius Caldera Consulting Providers: Smith Leija Discharge Orders/Prescriptions [...] mg PO QHS Patient Comments: PRN PER LONG-TERM MAR. acetaminophen 325 mg Tablet 650 mg PO TID Patient Comments: PRN PER LONG-TERM MAR cephalexin 500 mg capsule 500 mg [...] in before D/C Order can be placed): [facility] 02/13/23 1424 <Electronically signed by Gabriel Giraldo DO> Cosigner Signature (if applicable): CC: Dr. Luis Caldera MD; Dr. Smith Leija MD ~ [facility] Work Phone: 1(793) 621-340008-01-2023 Progress note Author Gabriel Giraldo [facility] February 12, 2023 4:48pm Note Date/Time February 12, 2023 4:4 8pm [facility] Medical Records Department [address] [place] [address] Progress Note - Hospitalist 02/12/23 1639 MR#: [id number] Acct: [id number] Name: RICHARD ROY Rep #:[id number] : 1945 77 From: Gabriel Giraldo DO PCP: Dr. Luis Caldera MD Status :ADM IN Location: [place] [address] Reason for Visit Reason for Visit: Diagnoses [...] 76.5 H, Lymph % (Auto) 8.1 L, [place] % (Auto) 12.5 H, Eos % (Auto) [...] 35 minutes Charges/Coding Visit Charges Inpatient E&M: 81129 Subs Hosp L2 02/12/23 1648 <Electronically signed by Gabriel Giraldo DO> Cosigner Signature (if applicable): CC: ~ Signed [facility] Work Phone: 1(963) 375-177208-01-2023 Consult note Author Smith Leija [facility] February 12, 2023 2:16pm Note Date/Time February 12, 2023 2:1 6pm [facility] Medical Records Department [address] [place] [address] Consultation - Infectious Dx 02/12/23 1412 MR#: [id number] Acct: [id number] Name: RICHARD ROY Rep #:[id number] : 1945 77 From: Smith huang MD PCP: Dr. Luis Caldera MD Status :ADM IN [facility] Assessment & Plan Assessment/Plan (1) Bacteremia: PLAN: [...] performed and neg except as noted above. COUNT INCLUDES THE [facility] Medical History AAA (abdominal aortic aneurysm) [...] Hx of abdominal surgery Social History housing: retirement current occupational status: retired Smoking Status: Never [...] 76.5 H, Lymph % (Auto) 8.1 L, [place] % (Auto) 12.5 H, Eos % (Auto) 0.8, Baso % (Auto) 0.1, Absolute Neuts(auto) 5.7, Absolute Lymphs (auto) 0.61 L, Nucleated RBC % 0, PT 19.3 H, INR 1.6 Rhythm Strip Rhythm Strip: paced Rate: 95 Ectopy: None 02/12/23 1416 <Electronically signed by Smith Leija MD> Cosigner Signature (if applicable): CC: Dr. Luis Caldera MD; Dr. Smith Leija MD~ Signed [facility] Work Phone: 1(473) 674-798208-01-2023 Discharge summary Author Dandy Sauer [facility] February 12, 2023 2:03am Note Date/Time February 11, 2023 5:05 pm [facility] Medical Records Department [address] [place] [address] Emergency Department Summary 02/11/23 MR#: [id number] Acct: [id number] Name: RICHARD ROY Rep #:[id number] : 1945 77 From: Dandy Sauer MD PCP: Dr. Luis Caldera MD Status :ADM IN Location: [place] [address] HPI History of Present Illness Chief Complaint: [...] mostly the lethargy is the issue acutely. [facility] Medical History (Updated 02/11/23 @ 19:31 [...] Hx of abdominal surgery Social History housing: retirement current occupational status: retired Smoking Status: Never [...] infection), Bacteremia Disposition Disposition: Acute Care Hospital [facility] Discharge Date/Time: 02/11/23 19:06 What to do if you have Problems For any increased pain, shortness of breath, bleeding, nausea or vomiting, chestpain, or any unexpected problems, contact your Primary Care Provider. Call [facility] ([phone]) or report to the closest Emergency Room. Call 911 if necessary. 02/12/23 0203 <Electronically signed by Dandy Sauer MD> Cosigner Signature (if applicable): CC: Dr. Luis Caldera MD ~ Signed [facility] Work Phone: 1(921) 607-268507-31-2023 History and physical note Author Jesus Burnham [facility] February 11, 2023 7:38pm Note Date/Time February 11, 2023 7:39 pm [facility] Medical Records Department [address] [place] [address] History & Physical Exam 02/11/231928 MR#: [id number] Acct: [id number] Name: RICHARD ROY Rep #:[id number] : 1945 77 From: Jesus Burnham MD PCP: Dr. Luis Caldera MD Status :ADM IN Location: [facility] [id number] HPI - General General Date of Admission: [...] tract infection and sent back to the retirement facility, however, today the patient has become more obtunded and sleeping excessively. Lactic acid elevation is noted and patient is on pacemaker. He denies any chest pain, shortness of breath and/or fevers orchills however is not a great historian at present time. Patient's is present at bedside and apparently the son is the DURABLE POWER OF WARP BLEACHING VAT TENDER for healthcare and has orders signed for DNR CCA with no intubation. He will be admitted to the general medical floor placed on Rocephin, consult for infectiousdisease due to new implanted pacemaker. COUNT INCLUDES THE [facility] Medical History Amputation of right great [...] Hx of abdominal surgery Social History housing: retirement current occupational status: retired Smoking Status: Never [...] on Coumadin Charges/Coding Visit Charges Inpatient E&M: 13160 Init Hosp L2 02/11/231937 <Electronically signed by Jesus Burnham MD> Cosigner Signature (if applicable): CC: Dr. uLis Caldera MD; Dr. Jesus Burnham MD~ Signed [facility] Work Phone: 1(552) 204-708407-17-2023 Miscellaneous Notes* Telephone Encounter - Tania Heller LPN - 01/28/2023 2:22 PM EDT Miya with [facility] calls to report pt was admitted to their facility over the weekend. Miya is requesting immunization record be faxed to: [phone]. Immunization record faxed as requested. [facility] Discharge summary Author Ryan Tinoco [facility] January 26, 2023 12:56pm Note Date/Time January 26, 2023 12:4 6pm [facility] Medical Records Department [address] [place] [address] Discharge Summary 01/26/23 1157 MR#: [id number] Acct: [id number] Name: RICHARD ROY Rep #:[id number] : 1945 77 From: Ryan Delgado PCP: Dr. Luis Caldera MD Status :ADM IN Location: [place] [address] 1 Providers Date of Admission: 01/21/23 Date [...] is a 77-year-old gentleman being admitted from [facility] for multiple episodes of syncope and upper [...] the . His medical care is under [facility]. 01/22: Hemoglobin dropped to 8.9. Patient had [...] there was 2 dropped heartbeat in EKG. tier and detonator shows heart rate slowed down to 48 to 60/min. EKG in the morning about 6 AM today shows sinus rhythm with second- degree Mobitz type II block, RBBB, LAFB bifascicular block. Patient has history of bifascicular block. I talked to the patient's and informed her about the update. Patient has history of ascending aortic aneurysmand had that repaired along with aortic valve in [facility]. His processor inspector is Dr. Huston in [facility]. I think this is most probably due to start of the octreotide drip as patient was in sinus normal rhythm at time ofadmission. Octreotide discontinued. Rocket Scientist consulted. 2D echo ordered. 01/23: Echo states EF 55 to 60%, normal LV systolic function. Trivial MR. Mild diffuse aortic valve calcification. Normal left atrium. Plan: Rocket Scientist will talk to Dr. Chandra regarding assessment for pacemaker 01/24: Patient has hypernatremia and hyperchloremia. IV fluid D5W started. Patient is still has AV block, P waves but rhythm is irregular. Twelve-lead EKGordered. Discussed with the processor inspector. Dr. Ling will talk to Dr. Chandra. 01/25: For now plan is to monitor. No plan for pacemaker as per the processor inspector. tier and detonator shows irregular heartbeat , Mobitz type II. [...] or advanced directive. His is power of title attorney for health. After discussion of benefits/risks procedures [...] Heart rate in 50s.. Discussed with the processor inspector. No chest pain or tightness. Physical [...] 78.4 H, Lymph % (Auto) 8.1 L, [place] % (Auto) 9.6, Eos % (Auto) 1.6, [...] Qty: 0 0RF Patient Comments: PRN PER LONG-TERM MAR melatonin 3 mg Tablet 3 mg PO QHS PRN PRN (Reason: Insomnia) Qty: 1 0RF Patient Comments: PRN PER LONG-TERM MAR. duloxetine [Cymbalta] 60 mg capsule,delayed release(DR/EC) [...] in before D/C Order can be placed): Halfway Facility Charges/Coding Visit Charges Inpatient E&M: 38290 Disch Hosp >30min 01/26/23 1256 <Electronically signed by Ryan Tinoco MD> Cosigner Signature (if applicable): CC: Dr. Luis Caldera MD; Dr. Ryan Tinoco MD~ Signed [facility] Work Phone: 1(926) 849-858007-15-2023 Discharge summary Author Ryan Tinoco [facility] January 26, 2023 11:57am Note Date/Time January 26, 2023 7:59 am [facility] Medical Records Department [address] [facility] [place] [address] Transfer to [facility] MR#: [id number] Acct: [id number] Name: RICHARD ROY Rep #:[id number] : 1945 77 From: Ryan Delgado PCP: Dr. Luis Caldera MD Status :ADM IN Certification of patient admission REQUIRED AT TIME OF ADMISSION. I CERTIFY THAT POST-HOSPITAL F SERVICES ARE REQUIRED TO BE GIVEN ON AN IN-PATIENT BASIS BECAUSE OF THE ABOVE NAMED PATIENT'S NEED FOR LONG-TERM CARE ON A CONTINUING BASIS FOR THE CONDITION(S) FOR WHICH HE/SHE WAS RECEIVING IN-PATIENT HOSPITAL SERVICES PRIOR TO HIS/HER TRANSFER TO THE [facility]. 01/26/23 1157<Electronically signed by Ryan [...] is a 77-year-old gentleman being admitted from [facility] for multiple episodes of syncope and upper [...] the . His medical care is under [facility]. 01/22: Hemoglobin dropped to 8.9. Patient had [...] there was 2 dropped heartbeat in EKG. tier and detonator shows heart rate slowed down to 48 to 60/min. EKG in the morning about 6 AM today shows sinus rhythm with second- degree Mobitz type II block, RBBB, LAFB bifascicular block. Patient has history of bifascicular block. I talked to the patient's and informed her about the update. Patient has history of ascending aortic aneurysmand had that repaired along with aortic valve in [facility]. His processor inspector is Dr. Huston in [facility]. I think this is most probably due to start of the octreotide drip as patient was in sinus normal rhythm at time ofadmission. Octreotide discontinued. Rocket Scientist consulted. 2D echo ordered. 01/23: Echo states EF 55 to 60%, normal LV systolic function. Trivial MR. Mild diffuse aortic valve calcification. Normal left atrium. Plan: Rocket Scientist will talk to Dr. Chandra regarding assessment for pacemaker 01/24: Patient has hypernatremia and hyperchloremia. IV fluid D5W started. Patient is still has AV block, P waves but rhythm is irregular. Twelve-lead EKGordered. Discussed with the processor inspector. Dr. Ling will talk to Dr. Chandra. 01/25: For now plan is to monitor. No plan for pacemaker as per the processor inspector. tier and detonator shows irregular heartbeat , Mobitz type II. [...] or advanced directive. His is power of title attorney for health. After discussion of benefits/risks procedures [...] Qty: 0 0RF Patient Comments: PRN PER LONG-TERM MAR melatonin 3 mg Tablet 3 mg PO QHS PRN PRN (Reason: Insomnia) Qty: 1 0RF Patient Comments: PRN PER LONG-TERM MAR. donepezil 10 mg tablet 10 mg PO QHS duloxetine [Cymbalta] 60 mg capsule,delayed release(DR/EC) 60 mg PO DAILY cholecalciferol (vitamin D3) 1,250 mcg (50,000 unit) tablet 1,250 mcg PO MO insulin lispro [Humalog KwikPen Insulin] 100 unit/mL insulin pen See Protocol subcut [facility] Protocol: 6. Sliding Scale Insulin Custom Condition: [...] in before D/C Order can be placed): Halfway Facility (6) Anemia Qualifiers: Anemia type: iron deficiency Iron deficiency anemia type: other iron deficiency Qualified Code(s): D50.8 - Other iron deficiency anemias 01/26/23 3109 <Electronically signed by Ryan Tinoco MD> Cosigner Signature (if applicable): CC: Dr. Luis Caldera MD; Dr. Lizzeth Riggs MD ~ [facility] Work Phone: 1(545) 966-548807-14-2023 Progress note Author Lizzeth Riggs [facility] January 25, 2023 4:08pm Note Date/Time January 25, 2023 1:09 pm [facility] Medical Records Department [address] [place] [address] Progress Note - Cardiology 01/25/23 1308 MR#: [id number] Acct: [id number] Name: RICHARD ROY Rep #:[id number] : 1945 77 From: Rebecca LOZA PA PCP: Dr. Luis Caldera MD Status :ADM IN Location: [place] [address] Documented by User: DENIA Wilkinson 01/25/23 14:14 [...] Albumin (DAVID) 2.5 L, Albumin/Globulin (DAVID) 1.4, Gofwu-7-Uypwxkdcg DAVID 0.2, Frcyh-7-Gbemvsppk DAVID 0.6, Beta-Globulins (DAVID) 0.7, Gamma Globulins [...] 83.4 H, Lymph % (Auto) 5.9 L, [place] % (Auto) 7.8, Eos % (Auto) 1.0, [...] 83.4 H, Lymph % (Auto) 5.9 L, [place] % (Auto) 7.8, Eos % (Auto) 1.0, [...] stable hemodynamically. Charges/Coding Visit Charges Inpatient E&M: 22125 Subs Hosp L2 Documented by User: Dr. [...] notes and documentation Patient to follow-up as processor inspector Dr. Chandra with the results of the event monitor. To evaluate for permanent pacemaker implant. 01/25/23 1414 <Electronically signed by Rebecca LOZA> Cosigner Signature (if applicable): 01/25/23 1608 <Electronically signed by Lizzeth Riggs MD> CC: ~ Signed [facility] Work Phone: 1(438) 966-204307-14-2023 Progress note Author Ryan Tinoco [facility] January 25, 2023 2:08pm Note Date/Time January 25, 2023 9:30 am [facility] Medical Records Department [address] [place] [address] Progress Note - Hospitalist 01/25/23 0928 MR#: [id number] Acct: [id number] Name: RICHARD ROY Rep #:[id number] : 1945 77 From: Ryan Delgado PCP: Dr. Luis Caldera MD Status :ADM IN Location: [place] [address] Reason for Visit Reason for Visit: Diagnoses [...] 83.4 H, Lymph % (Auto) 5.9 L, [place] % (Auto) 7.8, Eos % (Auto) 1.0, [...] Heart rate in 50s.. Discussed with the processor inspector. No chest pain or tightness. Physical [...] is a 77-year-old gentleman being admitted from [facility] for multiple episodes of syncope and upper [...] the . His medical care is under [facility]. 01/22: Hemoglobin dropped to 8.9. Patient had [...] Albumin (DAVID) 2.5 L, Albumin/Globulin (DAVID) 1.4, Snugp-9-Ujgdmxzcd DAVID 0.2, Lwbzh-2-Worbsxern DAVID 0.6, Beta-Globulins (DAVID) 0.7, Gamma Globulins [...] 83.4 H, Lymph % (Auto) 5.9 L, [place] % (Auto) 7.8, Eos % (Auto) 1.0, [...] there was 2 dropped heartbeat in EKG. tier and detonator shows heart rate slowed down to 48 to 60/min. EKG in the morning about 6 AM today shows sinus rhythm with second- degree Mobitz type II block, RBBB, LAFB bifascicular block. Patient has history of bifascicular block. I talked to the patient's and informed her about the update. Patient has history of ascending aortic aneurysmand had that repaired along with aortic valve in [facility]. His processor inspector is Dr. Huston in [facility]. I think this is most probably due to start of the octreotide drip as patient was in sinus normal rhythm at time ofadmission. Octreotide discontinued. Rocket Scientist consulted. 2D echo ordered. 01/23: Echo states EF 55 to 60%, normal LV systolic function. Trivial MR. Mild diffuse aortic valve calcification. Normal left atrium. Plan: Rocket Scientist will talk to Dr. Chandra regarding assessment for pacemaker 01/24: Patient has hypernatremia and hyperchloremia. IV fluid D5W started. Patient is still has AV block, P waves but rhythm is irregular. Twelve-lead EKGordered. Discussed with the processor inspector. Dr. Ling will talk to Dr. Chandra. 01/25: For now plan is to monitor. No plan for pacemaker as per the processor inspector. tier and detonator shows irregular heartbeat , Mobitz type II. [...] or advanced directive. His is power of title attorney for health. After discussion of benefits/risks procedures [...] and right frontal sinus Electronically Signed: Ravindra Sirera MD at 10:43 EDT , Chest X-Ray 01/21/23 09:30 IMPRESSION: No acute abnormality is seen. Echocardiogram 01/22/23 08:24 Interpretation Summary The estimated ejection fraction is 55-60 %. Normal LV systolic function Charges/Coding Visit Charges Inpatient E&M: 02088 Subs Hosp L2 01/25/23 1408 <Electronically signed by Ryan Tinoco MD> Cosigner Signature (if applicable): CC: ~ Signed [facility] Work Phone: 1(233) 965-260707-13-2023 Progress note Author [facility] January 24, 2023 8:23pm Note Date/Time January 24, 2023 8:23 pm [facility] Medical Records Department [address] [place] [address] Progress Note - Hospitalist 01/24/232021 MR#: [id number] Acct: [id number] Name: RICHARD ROY Rep #:[id number] : 1945 77 From: Karen Aly MD PCP: Dr. 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 He is asymptomatic. Cardiology following and made aware also by RN that it is recurrent. 01/24/232022 <Electronically signed by Karen Aly MD> Cosigner Signature (if applicable): CC: ~ Signed [facility] Work Phone: [phone]) 703-680707-13-2023 Progress note Author Liu Hackett [facility] January 24, 2023 5:07pm Note Date/Time January 24, 2023 5:07 pm [facility] Medical Records Department [address] [place] [address] Progress Note - GI 01/24/23 1703 MR#: [id number] Acct: [id number] Name: RICHARD ROY Rep #:[id number] : 1945 77 From: Liu Hackett DO PCP: Dr. Luis Caldera MD Status :ADM IN Location: [place] [id number]- [id number] Subjective Subjective Patient laying in bed [...] 82.8 H, Lymph % (Auto) 5.3 L, [place] % (Auto) 8.9, Eos % (Auto) 1.3, [...] ensure healing. Charges/Coding Visit Charges Inpatient E&M: 29851 Subs Hosp L3 01/24/237 <Electronically signed by Liu Hackett DO> Cosigner Signature (if applicable): CC: ~ Signed [facility] Work Phone: 1(506) 341-550207-13-2023 Progress note Author [facility] January 24, 2023 4:25pm Note Date/Time January 24, 2023 1:41 pm [facility] Medical Records Department [address] [place] [address] Progress Note - Cardiology 01/24/23 1338 MR#: [id number] Acct: [id number] Name: RICHARD ROY Rep #:[id number] : 1945 77 From: Rebecca LOZA PCP: Dr. Luis Caldera MD Status :ADM IN Location: [place] [id number]- 1 Documented by User: DENIA Wilkinson 01/24/23 [...] 82.8 H, Lymph % (Auto) 5.3 L, [place] % (Auto) 8.9, Eos % (Auto) 1.3, [...] 82.8 H, Lymph % (Auto) 5.3 L, [place] % (Auto) 8.9, Eos % (Auto) 1.3, [...] by GI. Charges/Coding Visit Charges Inpatient E&M: 04497 Subs Hosp L2 Documented by User: Dr. [...] by Lizzeth Riggs MD> CC: ~ Signed [facility] Work Phone: [phone]) [phone] Miscellaneous Notes* Telephone Encounter - Tamika Grijalva [...] Patient's calling to say patient was at [facility] for rehabilitation after his hospitalization @ [facility] for confusion on 01/04. He was sent by squad to [facility] from [facility] on 01/21 due to episode [...] Lawn. Vannessa Jorge, RN [facility] Progress note Author Ryan Tinoco [facility] January 24, 2023 1:11pm Note Date/Time January 24, 2023 8:05 am [facility] Medical Records Department [address] [place] [address] Progress Note - Hospitalist 01/24/23 0758 MR#: [id number] Acct: [id number] Name: RICHARD ROY Rep #:[id number] : [...] Antibody < 0.2, Sm (Martinez) Antibody <0.2, GROOVER OPERATOR Antibody <0.2, Scl-70 Scleroderma Ab <0.2, Double [...] 82.8 H, Lymph % (Auto) 5.3 L, [place] % (Auto) 8.9, Eos % (Auto) 1.3, [...] waves. Twelve-lead EKG ordered.. Discussed with the processor inspector. No chest pain or tightness. General: [...] is a 77-year-old gentleman being admitted from [facility] for multiple episodes of syncope and upper [...] the . His medical care is under [facility]. 01/22: Hemoglobin dropped to 8.9. Patient had [...] there was 2 dropped heartbeat in EKG. tier and detonator shows heart rate slowed down to 48 to 60/min. EKG in the morning about 6 AM today shows sinus rhythm with second- degree Mobitz type II block, RBBB, LAFB bifascicular block. Patient has history of bifascicular block. I talked to the patient's and informed her about the update. Patient has history of ascending aortic aneurysmand had that repaired along with aortic valve in [facility]. His processor inspector is Dr. Huston in [facility]. I think this is most probably due to start of the octreotide drip as patient was in sinus normal rhythm at time ofadmission. Octreotide discontinued. Rocket Scientist consulted. 2D echo ordered. 01/23: Echo states EF 55 to 60%, normal LV systolic function. Trivial MR. Mild diffuse aortic valve calcification. Normal left atrium. Plan: Rocket Scientist will talk to Dr. Chandra regarding assessment for pacemaker 01/24: Patient has hypernatremia and hyperchloremia. IV fluid D5W started. Patient is still has AV block, P waves but rhythm is irregular. Twelve-lead EKGordered. Discussed with the processor inspector. Dr. Ling will talk to Dr. [...] or advanced directive. His is power of title attorney for health. After discussion of benefits/risks procedures [...] systolic function Charges/Coding Visit Charges Inpatient E&M: 11577 Subs Hosp L3 01/24/23 1311 <Electronically signed by Ryan Tinoco MD> Cosigner Signature (if applicable): CC: ~ Signed [facility] Work Phone: 1(277) 572-504807-12-2023 Progress note Author Lizzeth Riggs [facility] January 23, 2023 2:45pm Note Date/Time January 23, 2023 10:0 0am [facility] Medical Records Department [address] [place] [address] Progress Note - Cardiology 01/23/23 0946 MR#: [id number] Acct: [id number] Name: RICHARD ROY Rep #:[id number] : [...] 85.3 H, Lymph % (Auto) 4.8 L, [place] % (Auto) 7.1, Eos % (Auto) 0.7, [...] 85.3 H, Lymph % (Auto) 4.8 L, [place] % (Auto) 7.1, Eos % (Auto) 0.7, [...] appears stable. Charges/Coding Visit Charges Inpatient E&M: 22700 Subs Hosp L2 01/23/23 1000 <Electronically signed by Rebecca LOZA> Cosigner Signature (if applicable): 01/23/23 1445 <Electronically signed by Lizzeth Riggs MD> CC: ~ Signed [facility] Work Phone: 1(704) 539-447407-12-2023 Procedure [facility] 01-23-2023 Procedure [facility]07-12-2023 Progress note Author Ryan Tinoco [facility] January 23, 2023 9:01am Note Date/Time January 23, 2023 9:01 am [facility] Medical Records Department [address] [place] [address] Progress Note - Hospitalist 01/23/23 0852 MR#: [id number] Acct: [id number] Name: RICHARD ROY Rep #:[id number] : [...] 85.3 H, Lymph % (Auto) 4.8 L, [place] % (Auto) 7.1, Eos % (Auto) 0.7, [...] every third beat dropped. Discussed with the processor inspector. No chest pain or tightness. General: [...] is a 77-year-old gentleman being admitted from [facility] for multiple episodes of syncope and upper [...] the . His medical care is under [facility]. 01/22: Hemoglobin dropped to 8.9. Patient had [...] there was 2 dropped heartbeat in EKG. tier and detonator shows heart rate slowed down to 48 to 60/min. EKG in the morning about 6 AM today shows sinus rhythm with second- degree Mobitz type II block, RBBB, LAFB bifascicular block. Patient has history of bifascicular block. I talked to the patient's and informed her about the update. Patient has history of ascending aortic aneurysmand had that repaired along with aortic valve in [facility]. His processor inspector is Dr. Huston in [facility]. I think this is most probably due to start of the octreotide drip as patient was in sinus normal rhythm at time ofadmission. Octreotide discontinued. Rocket Scientist consulted. 2D echo ordered. 01/23: Echo states EF 55 to 60%, normal LV systolic function. Trivial MR. Mild diffuse aortic valve calcification. Normal left atrium. Plan: Rocket Scientist will talk to Dr. Chandra regarding assessment [...] or advanced directive. His is power of title attorney for health. After discussion of benefits/risks procedures [...] organ systems), coordination with cardiology and GI business management consultant, review of labs and imaging is 50 minutes. Visit Charges Inpatient E&M: 06309 Subs Hosp L3 01/23/23 09 <Electronically signed by Ryan Tinoco MD> Cosigner Signature (if applicable): CC: ~ Signed [facility] Work Phone: 1([phone]) 464-957007-11-2023 Consult note Author Rebecca Leon [facility] January 22, 2023 4:28pm Note Date/Time January 22, 2023 4:07 pm [facility] Medical Records Department [address] [place] [address] Consultation - Cardiology 01/22/23 1605 MR#: [id number] Acct: [id number] Name: RICHARD ROY Rep #:[id number] : [...] room yesterday for syncope. The nurses at [facility] had noted that he was unresponsive [...] last received his metoprolol while in the retirement on 01/20/2023. I did speak with , [...] were adjusted at his last hospital stay. COUNT INCLUDES THE [facility] Medical History (Updated 01/22/23 @ 16:25 by Rebecca LOZA, PA) Amputation of right great toe Aortic [...] Hx of abdominal surgery Social History housing: retirement current occupational status: retired Smoking Status: Never [...] Charges/Coding Visit Charges Office Visits / Consults: 40650 IP Consult L3 Objective Data Vital Signs: [...] RDW Coeff of Nathaniel 15.5 H, Plt [id number], MPV 10.1, Immature Gran % (Auto) 3.300 H, Neut % (Auto) 81.9 H, Lymph % (Auto) 5.9 L, [place] % (Auto) 8.0, Eos % (Auto) 0.7, [...] 81.9 H, Lymph % (Auto) 5.9 L, [place] % (Auto) 8.0, Eos % (Auto) 0.7,Baso [...] Caldera MD; Dr. Lizzeth Riggs MD~ Signed [facility] Work Phone: 1(920) [phone] Progress note Author Ryan Tinoco [facility] January 22, 2023 8:38am Note Date/Time January 22, 2023 8:22 am [facility] Medical Records Department [address] [place] [address] Progress Note - Hospitalist 01/22/23 0819 MR#: [id number] Acct: [id number] Name: RICHARD ROY Rep #:[id number] : [...] 87.8 H, Lymph % (Auto) 7.5 L, [place] % (Auto) 2.4, Eos % (Auto) 0.0, [...] Clarity Clear, Urine pH 5.0, Ur Specific [place] 1.020, Urine Protein 15 H, Urine Glucose [...] RDW Coeff of Nathaniel 15.5 H, Plt [id number], MPV 10.1, Immature Gran % (Auto) 3.300 H, Neut % (Auto) 81.9 H, Lymph % (Auto) 5.9 L, [place] % (Auto) 8.0, Eos % (Auto) 0.7, [...] havingirregular heartbeat after midnight, initially A-fib on manager cardiac cath. After that about 5 AM patient started [...] is a 77-year-old gentleman being admitted from [facility] for multiple episodes of syncope and upper [...] the . His medical care is under [facility]. 01/22: Hemoglobin dropped to 8.9. Patient had [...] there was 2 dropped heartbeat in EKG. tier and detonator shows heart rate slowed down to 48 to 60/min. EKG in the morning about 6 AM today shows sinus rhythm with second- degree Mobitz type II block, RBBB, LAFB bifascicular block. Patient has history of bifascicular block. I talked to the patient's and informed her about the update. Patient has history of ascending aortic aneurysmand had that repaired along with aortic valve in [facility]. His processor inspector is Dr. Huston in [facility]. I think this is most probably due to start of the octreotide drip as patient was in sinus normal rhythm at time ofadmission. Octreotide discontinued. Rocket Scientist consulted. 2D echo ordered. 3. Essential hypertension [...] or advanced directive. His is power of title attorney for health. After discussion of benefits/risks procedures involved with full code, DNR CC arrest and DNR CC, the patient and his opted for full code. Patient does want artificial life support including intubation, tube feed, ventilator and/chest compression, central venous catheter, vasopressor and DC shock if needed Charges/Coding Visit Charges Inpatient E&M: 54050 [facility] Hosp 01/22/23 0838 <Electronically signed by Ryan Tinoco MD> Cosigner Signature (if applicable): CC: ~ Signed [facility] Work Phone: 1(759) 751-305807-10-2023 Consult note Author Liu Hackett [facility] January 21, 2023 7:07pm Note Date/Time January 21, 2023 7:04 pm [facility] Medical Records Department [address] [place] [address] Consultation - GI 01/21/23 1902 MR#: [id number] Acct: [id number] Name: RICHARD ROY Rep #:[id number] : 1945 77 From: Liu Hackett DO PCP: Dr. Luis Caldera MD Status :ADM IN Location: ICU CVICU20 2-1 HPI Consult Data Date of Consult: 01/21/23 HPI Narrative Reason for Consultation: GI bleed HPI Narrative: RICHARD ROY, is a 77 M who presents with melena goals from retirement. He is on warfarin for history of DVT and atrial fibrillation. [facility]. He was admitted between 01/05 to 01/08/23 for confusion and generalized weakness, stroke was ruled out and was sent to retirement there. Started getting confused within the past [...] down to 10.9 from 13.1 on discharge. COUNT INCLUDES THE [facility] Medical History Amputation of right great [...] Hx of abdominal surgery Social History housing: retirement current occupational status: retired Smoking Status: Never [...] 87.8 H, Lymph % (Auto) 7.5 L, [place] % (Auto) 2.4, Eos % (Auto) 0.0, [...] Clarity Clear, Urine pH 5.0, Ur Specific [place] 1.020, Urine Protein 15 H, Urine Glucose [...] 6 hours. Charges/Coding Visit Charges Inpatient E&M: 88444 Init Hosp L3 01/21/23 190 <Electronically signed by Liu Hackett DO> Cosigner Signature (if applicable): CC: Dr. Luis Caldera MD~ Signed [facility] Work Phone: 1(172) 707-564107-10-2023 Discharge summary Author Dandy Sauer [facility] January 21, 2023 5:25pm Note Date/Time January 21, 2023 9:06 am [facility] Medical Records Department [address] [place] [address] Emergency Department Summary 01/21/23 MR#: [id number] Acct: [id number] Name: RICHARD ROY Rep #:[id number] : 1945 77 From: Dandy Sauer MD PCP: Dr. Luis Caldera MD Status :ADM IN Location: ICU CVICU20 2-1 HPI History of Present Illness Chief Complaint: Syncope Informant: spouse/S.O., EMS and SNF Narrative Narrative: Patient sent from [facility] where he has been for several weeks [...] pain, but he denies it right now. [facility] Medical History Amputation of right great [...] 09:[address] Dandy Sauer MD) housing: retirement current occupational status: retired Smoking Status: Never [...] place including the state. Downgoing toes bilaterally [place] Coma Scale: document GCS findings To Voice [...] 87.8 H Lymph % (Auto) 7.5 L [place] % (Auto) 2.4 Eos % (Auto) 0.0 [...] Management Discussion w/another healthcare provider: Hospitalist and Oracle Adf Developer (GI) Critical Care Time Critical Care Time: Yes Critical care time (excluding procedures): 30-74 minutes (33 min), Including time spent:, Discussing w/Patient &/or Family/Costing Manager, Discussing w/Consultants, Arranging Admission or Transfer and Performing Direct Patient Care at Bedside Discharge Plan Dx/Rx/DC Orders Clinical Impression: Acute encephalopathy, Syncope, Supratherapeutic INR, ABLA (acute blood loss anemia), Upper gastrointestinal bleeding, Warfarin-induced coagulopathy Disposition Disposition: Acute Care Hospital [facility] Capacity Capacity Assessment Tool Can the [...] your Primary Care Provider. Call [facility] ([phone]) or report to the closest Emergency Room. Call 911 if necessary. 01/21/23 1725 <Electronically signed by Dandy Sauer MD> Cosigner Signature (if applicable): CC: Dr. Luis Caldera MD ~ Signed [facility] Work Phone: 1(653) 156-332907-10-2023 History and physical note Author Ryan Tinoco [facility] January 21, 2023 12:24pm Note Date/Time January 21, 2023 11:5 8am [facility] Medical Records Department [address] [place] [address] H&P Exam - Hospitalist 01/21/23 1156 MR#: [id number] Acct: [id number] Name: RICHARD ROY Rep #:[id number] : 1945 77 From: Ryan Delgado PCP: Dr. Luis Caldera MD Status :ADM IN Location: ICU CVICU20 2-1 HPI - General General Date of Admission: 01/21/23 Date of Service: 01/21/23 Chief Complaint: Patient was unresponsive in the morning. Had large black tarrystool. HPI Narrative RICHARD ROY, is a 77 M gentleman was brought from [facility] to retirement for syncopal episodes and black tarry stool. Prior to that he was admitted between 01/05 to 01/08/23 for confusion and generalized weakness, stroke was ruledout and was sent to retirement there. Patient is not a good historian. As per the nursing report, patient had multiple short syncopal episodes in the morning after he had a large black tarry stool. Patient had been having dark stool for last couple days in retirement. Patient does not remember himself from dementia/depression. [...] further admitted in in the context of COUNT INCLUDES THE [facility] Medical History Amputation of right great [...] Hx of abdominal surgery Social History housing: retirement current occupational status: retired Smoking Status: Never [...] 87.8 H, Lymph % (Auto) 7.5 L, [place] % (Auto) 2.4, Eos % (Auto) 0.0, [...] Clarity Clear, Urine pH 5.0, Ur Specific [place] 1.020, Urine Protein 15 H, Urine Glucose [...] is a 77-year-old gentleman being admitted from [facility] for multiple episodes of syncope and upper [...] the . His medical care is under [facility]. 2 Syncopal episode most likely due to [...] or advanced directive. His is power of title attorney for health. After discussion of benefits/risks procedures involved with full code, DNR CC arrest and DNR CC, the patient and his opted for full code. Patient does want artificial life support including intubation, tube feed, ventilator and/chest compression, central venous catheter, vasopressor and DC shock if needed Total time spent in nifa-[id number] encounter in discussion of advanced directive 17 [...] 87.8 H, Lymph % (Auto) 7.5 L, [place] % (Auto) 2.4, Eos % (Auto) 0.0, [...] Clarity Clear, Urine pH 5.0, Ur Specific [place] 1.020, Urine Protein 15 H, Urine Glucose (UA) 100 H, Urine Ketones 15 H, Urine Occult Blood Negative, Urine Nitrite Negative, Urine Bilirubin 1 H, Urine Urobilinogen Normal, Ur Leukocyte Esterase Negative, Urine RBC 0 SEEN, Urine WBC 0-5 SEEN, Ur Squamous Epith Cells 0-5 SEEN, Urine Bacteria 0 SEEN, Urine Mucus 0 SEEN Charges/Coding Visit Charges Inpatient E&M: 23398 Init Hosp L3 Procedures Hospitalists Procedures: 81454 Advncd Care Plan 30 Min 01/21/233 <Electronically [...] MD; Dr. Ryan Tinoco MD ~* Signed [facility] Work Phone: 1(423) 603-790706-23-2023 Miscellaneous Notes* Telephone Encounter - Amada Cohn [...] again recommend ER evaluation. documented in this encounterWexner Medical Center06-23-2023 Miscellaneous Notes* Telephone Encounter - Tamika Grijalva [...] 01/04. Vannessa Jorge RN documented in this encounterWexner Medical Center06-22-2023 History of Present illness Narrative* Justina Escoto, [...] included: Therapeutic exercise, Neuromuscular re-education, Therapeutic activities, Self-long-term management, and Gait training. Goals for Episode [...] PARTIALLY MET, improved 8 to 9 reps [place] in home exercise program including cardiovascular exercise. [...] 5 Justina Escoto PT documented in this encounterWexner Medical Center06-19-2023 History of Present illness Narrative* Justina Escoto [...] Ira KashuALISIA real PT documented in this encounterWexner Medical Center06-15-2023 History of Present illness Narrative* Justina Escoto, [...] Treatment Time Minutes (timed/untimed): 40 Ira Richard, LEAD TECHNICAL WRITER Justina Escoto, PT documented in this encounterWexner Medical Center06-12-2023 History of Present illness Narrative* Justina Escoto, [...] 40 Justina Escoto PT documented in this encounterWexner Medical Center06-05-2023 History of Present illness Narrative* Justina Escoto [...] 40 Justina Escoto PT documented in this encounterWexner Medical Center06-02-2023 History of Present illness Narrative* Justina Escoto [...] 40 Justina Escoto PT documented in this encounterWexner Medical Center05-31-2023 History of Present illness Narrative* Justina Escoto [...] 40 Justina O'Rafa, PT documented in this encounterWexner Medical Center05-09-2023 Miscellaneous Notes* Telephone Encounter - GABI Link [...] to the pharmacy. Please call patient at: [phone]. Nola Castro Pss documented in this encounterWexner Medical Center05-08-2023 Miscellaneous Notes* Telephone Encounter - Tania Heller [...] and result): 09/24/2022 2.5 documented in this encounterWexner Medical Center04-10-2023 History of Present illness Narrative* Zachary Obregon [...] Patient, Diabetic Foot Care documented in this encounterWexner Medical Center04-10-2023 Instructions* Patient Instructions* Zachary Obregon - 10/22/2022 [...] (or decreased sensation in your feet) a senior network systems engineer should always cut your toenails. Be [...] Go to your health care provider or senior network systems engineer to treat these conditions. documented in this encounterWexner Medical Center03-14-2023 Miscellaneous Notes* Telephone Encounter - Rebecca Esteban [...] Information or narrative: no documented in this encounterWexner Medical Center02-24-2023 Miscellaneous Notes* Telephone Encounter - Suzanne Connelly RN - 09/07/2022 1:11 PM EST Call to patient. Provided number to schedule- [phone]. Offered to transfer patient to schedulebut patient declined to schedule stating he could call later. PAOLA Potter, RN September 07, 2022 1:11 PM * Telephone Encounter - Jojo Kaur MD - 09/07/2022 11:39 AM EST Suzanne please let patient know how to proceed with driving evaluation I already put the order in computer documented in this encounterWexner Medical Center02-24-2023 History of Present illness Narrative* Jojo Kaur [...] evaluation of folllow up after hospitalization in [facility]. he was admitted because of syncopal [...] others Since covid hit they went to [facility] and was staying in the house by [...] Benign-Dr. 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 ([facility]) 05/25/2018 History of transfusion Hyperlipidemia LDL goal < 100 04/01/2012 NSTEMI (non-ST elevated myocardial infarction) ([facility]) Pulmonary embolus, right ([facility]) 09/25/2013 Status post aortic valve repair 2005 Thoracic aneurysm without mention of rupture Type 2 diabetes mellitus with stage 3 chronic kidney disease, with long-term current use of insulin([facility]) 06/20/2016 Vitamin D deficiency 01/03/2022 PSH: PAST SURGICAL HISTORY Procedure Laterality Date ABDOMINAL SURGERY HX AMPUTATION METATARSAL+TOE,SINGLE Right 05/25/2018 with delayed closure on 05/28/18. Dr. Obregon at [facility] COLONOSCOPY 10/10/2021 repeat in 3 years [...] one time a week. blood sugar diagnostic ([email or web address].ruTOUCH ULTRA TEST) test strip Test blood sugar(s) [...] gait ,unsteady Cannot tandem Jojo Kaur M.D. [facility] [place] Department of Neurology Total time in minutes [...] lights on at night. documented in this encounterWexner Medical Center02-14-2023 Miscellaneous Notes* Telephone Encounter - Tamika Grijalva [...] no Tania Heller LPN documented in this encounterWexner Medical Center02-02-2023 Miscellaneous Notes* Telephone Encounter - Grecia Bustillo [...] notify patient. Grecia Bustillo documented in this encounterWexner Medical Center01-31-2023 Miscellaneous Notes* Telephone Encounter - Tamika Grijalva [...] Information or narrative: no documented in this encounterWexner Medical Center01-26-2023 History of Present illness Narrative* Abdulaziz Caldera [...] 12 months ago. Going to schedule appointment [facility] [place]. 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 Asymtpomatic still on medical management. Has completed his home PT/OT. Echo and stress test at [facility] were negative/normal. Has follow up with Dr. Huston on 12/03. questioning if they should be seen sooner. BP well controlled with current regimen <130/80. BPH: With use of flomax, patient is getting up once at night to urinate. Has weak stream, but denies straining, incomplete emptying, dysuria, hematuria, incontinence. Followed up with ENT in [place] for chronic frontal sinusitis on CT/MRI going back to February. Told this did not require treatment. F/u PRN. Denies sinus pressure/pain/congestion. Past medical history, appointments, medications, allergies reviewed. Previous Medical History PAST MEDICAL HISTORY Diagnosis Date BPH (benign prostatic hyperplasia) Cholelithiasis 09/25/2013 Chronic neutrophilia Benign-Dr. 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 ([facility]) 05/25/2018 History of transfusion Hyperlipidemia LDL goal < 100 04/01/2012 Pulmonary embolus, right ([facility]) 09/25/2013 Status post aortic valve repair 2005 Thoracic aneurysm without mention of rupture Type 2 diabetes mellitus with stage 3 chronic kidney disease, with long-term current use of insulin([facility]) 06/20/2016 Vitamin D deficiency 01/03/2022 Previous Surgical History PAST SURGICAL HISTORY Procedure Laterality Date ABDOMINAL SURGERY HX AMPUTATION METATARSAL+TOE,SINGLE Right 05/25/2018 with delayed closure on 05/28/18. Dr. Obregon at [facility] COLONOSCOPY 10/10/2021 repeat in 3 years [...] by mouth once daily. blood sugar diagnostic (BABYBOOM.ruTOUCH ULTRA TEST) test strip Test blood sugar(s) [...] Abs Lymph 1.00 - 4.00 k/uL 1.81 [place]% % 6.9 Abs [place] <0.87 k/uL 0.86 Eosin% % 3.1 Abs [...] neuropathy, with long-term current use of insulin ([facility]) -ICD9: 250.60, 357.2, V58.67, ICD10: E11.40, Z79.4 (primary diagnosis) improved control - Continue current medications - Blood glucose monitoring on a four times a day schedule - Encouraged regular aerobic exercise and weight loss - Follow up in 6 months, sooner should any other issues arise. - Discussed diabetic education issues of assisted diabetic complications, hypoglycemic symptoms, hyperglycemic symptoms, diet, [...] reigmen. Abdulaziz Caldera MD documented in this encounterWexner Medical Center01-23-2023 Miscellaneous Notes* Telephone Encounter - Tamika Grijalva [...] Mila Anne Castro LPN documented in this encounterWexner Medical Center01-23-2023 History of Present illness Narrative* Zachary Jaimes [...] or electronic medical record. documented in this encounterWexner Medical Center01-17-2023 Miscellaneous Notes* Telephone Encounter - Melba Jones [...] last OV. * Telephone Encounter - Rebecca sEteban LPN - 07/31/2022 11:11 AM EST Last [...] 2022. Rebecca Esteban LPN documented in this encounterWexner Medical Center01-13-2023 Miscellaneous Notes* Telephone Encounter - Meghana Burgess - 07/27/2022 9:55 AM EST AppBrick message not read as of 07/27/2022. Called and spoke with patient. Appt rescheduled to 09/07/2022 at 11:00 AM Meghana Aditya * Telephone Encounter - Meghana Burgess - 07/05/2022 4:08 PM EST Due to change in provider's schedule, appt on 08/21/2022 needs rescheduled. Patient notified via AppBrick message on 07/05/2022. Meghana Burgess documented in this encounterWexner Medical Center01-12-2023 Miscellaneous Notes* Telephone Encounter - Abdulaziz Caldera MD - 07/26/2022 3:09 PM EST Thanks. * Telephone Encounter - Ann Castillo RN - 07/26/2022 3:04 PM EST Darlyn, a nurse with [facility] calling to state she has discharged pt from shelter today. Pt is doing really well. No call back needed. Thank you. documented in this encounterWexner Medical Center01-11-2023 Miscellaneous Notes* Telephone Encounter - Suzanne Lino RN - 07/25/2022 1:42 PM EST Last Office Visit: 07/12/2022 Future Office Visit: 08/09/2022 Requested Prescriptions Pending Prescriptions Disp Refills amLODIPine (NORVASC) 2.5 mg tablet 30 tablet 5 Sig: Take 1 tablet by mouth once daily. Date of Last Labs: 03/02/2022 documented in this encounterWexner Medical Center01-03-2023 Miscellaneous Notes* Telephone Encounter - Abdulaziz Caldera MD - 07/17/2022 12:58 PM EST Reviewed and agree. * Telephone Encounter - Halima Diaz RN - 07/17/2022 12:51 PM EST Maverick PT calling from [facility] to report plan of care for patient and PT will visit patient 2 times a week for 3 weeks. PT will work with patient on functional mobility training. Halima Diaz RN documented in this [facility]01-03-2023 Miscellaneous Notes* Telephone Encounter - Abdulaziz Caldera MD - 07/17/2022 11:18 AM EST Reviewed. * Telephone Encounter - Eva Schmid LPN - 07/17/2022 11:12 AM EST Barbi from [facility] calling with OT plan of care, one time visit only, patient denies any further OT needs. No call back needed. documented in this [facility]12-30-2022 Miscellaneous Notes* Telephone Encounter - Ewa Andino Ma - 07/13/2022 11:30 AM EST Left detailed message on confidential line Ewa Andino Ma * Telephone Encounter - Abdulaziz Caldera MD - 07/13/2022 11:01 AM EST agree * Telephone Encounter - Ann Castillo RN - 07/13/2022 10:00 AM EST Chiki, a nurse with [facility] calling with [facility] Plan of Care for patient: Patient will be seen 1 time per week for 4 weeks for BP monitoring. No call back needed if provider agreeable. Thank you. documented in this encounterWexner Medical Center12-29-2022 Miscellaneous Notes* Telephone Encounter - Ewa Andino Ma - 07/12/2022 10:53 AM EST Karly was notified Ewa Andino Ma * Telephone Encounter - Abdulaziz Caldera MD - 07/12/2022 10:47 AM EST Agree and will follow * Telephone Encounter - Marcella Alvarez RN - 07/12/2022 10:07 AM EST Karly with [facility] called and reports Pt was discharged yesterday and they received a referral for PT/OT/SN. They are going to do their start of care tomorrow, and she was asking if the provider would be willing to follow. documented in this encounterWexner Medical Center12-26-2022 Miscellaneous Notes* Telephone Encounter - Suzanne Lino RN - 07/09/2022 11:46 AM EST Last Office Visit: 04/16/2022 Future Office Visit: 09/17/2022 Requested Prescriptions Pending Prescriptions Disp Refills dulaglutide (TRULICITY) 1.5 mg/0.5 mL pen injector 12 Each 3 Sig: Inject 1.5 mg subcutaneously one time a week. Inject once per week. Discard Pen After Date of Last Labs: 03/02/2022 documented in this encounterWexner Medical Center12-12-2022 Miscellaneous Notes* Telephone Encounter - Tania Heller [...] patient. Tania Heller LPN documented in this encounterWexner Medical Center11-02-2022 Miscellaneous Notes* Telephone Encounter - Mila Castro [...] you. Mila Castro LPN documented in this [facility]10-04-2022 History of Present illness Narrative* [...] evaluation of folllow up after hospitalization in [facility]. he was admitted because of syncopal [...] others Since covid hit they went to [facility] and was staying in the house by [...] kidney disease, with long-term current use of insulin([facility]) 06/20/2016 Vitamin D deficiency 01/03/2022 PSH: PAST SURGICAL HISTORY Procedure Laterality Date ABDOMINAL SURGERY HX AMPUTATION METATARSAL+TOE,SINGLE Right 05/25/2018 with delayed closure on 05/28/18. Dr. Obregon at [facility] COLONOSCOPY 10/10/2021 repeat in 3 years [...] week. Discard Pen After blood sugar diagnostic ([employer] ULTRA TEST) test strip Test blood sugar(s) [...] gait ,unsteady Cannot tandem Jojo Kaur M.D. [facility] [place] Department of Neurology Total time in minutes [...] lights on at night. documented in this encounterWexner Medical Center10-04-2022 Miscellaneous Notes* Telephone Encounter - Abdulaziz Caldera MD - 04/17/2022 11:24 AM EDT Reviewed. * Telephone Encounter - MERYL Zamudio - 04/17/2022 11:03 AM EDT Behavioral Health Social Work Progress Note Patient identified for [facility] from: PCP Reason for referral: Resources Behavioral Health Resources: Psychology - talk therapy [facility] encounter type: Telephone Encounter Attempts to Outreach: 1 attempt Referral made: Psychology - External Psychology-External referral type: Therapy Reason for external referral: Wait times at [facility] too long Final Disposition: Resources given Patient Discharged?: Yes Patient reported that caregiver was able to meet their needs today?: Yes SW placed a phone call to patient at the request of the PCP. Pt reported he is looking for talk therapy referrals at this time. SW provided the following referrals via phone: [facility] [address], [facility] [address] *counseling [facility] [address] [place], [place] [address] *counseling [facility] [address], [address] [place] [address] *counseling [facility] [address] [place] [address] FEDERICO Zamudio April 17, 2022 documented in this encounterWexner Medical Center10-03-2022 History of Present illness Narrative* Abdulaziz Caldera [...] (HCC) 09/08/2010 Diabetic retinopathy of right eye ([facility]) mild Diverticulosis of colon (without [...] delayed closure on 05/28/18. Dr. Obregon at [facility] COLONOSCOPY 10/10/2021 repeat in 3 years [...] week. Discard Pen After blood sugar diagnostic (CollegeScoutingReports.comUCH ULTRA TEST) test strip Test blood sugar(s) [...] Abs Lymph 1.00 - 4.00 k/uL 1.81 [place]% % 6.9 Abs [place] <0.87 k/uL 0.86 Eosin% % 3.1 Abs [...] - Discussed diabetic education issues of terminal worker diabetic complications, hypoglycemic symptoms, hyperglycemic symptoms, diet, [...] regimen. Abdulaziz Caldera MD documented in this encounterWexner Medical Center10-03-2022 Evaluation note* Diagnosis Type 2 diabetes mellitus [...] tract symptoms (LUTS) documented in this encounter [facility]09-23-20[facility] History of Present illness Narrative* Roselia Madrigal, MARYLU.BAR ATTENDANT - 04/06/2022 9:40 AM EDT 04/06/2022 Patient [...] Benign-Dr. 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 FOR CHOLESTEROL. blood sugar diagnostic ([employer]Sc[employer]Reports.comUCH ULTRA TEST) test strip Test blood sugar(s) [...] which included preparing to see the patient, [id number] patient care, completing clinical documentation, obtaining and/or reviewing separately obtained history, performing a medically appropriate examination, and counseling and educating the patient/family/caregiver. documented in this encounterWexner Medical Center09-21-2022 Miscellaneous Notes* Telephone Encounter - [...] AM EDT ----- Message from Roselia Madrigal APRN.BAR ATTENDANT sent at 04/03/2022 2:47 PM EDT ----- Please forward INR to doctor assembler semiconductor Roselia Madrigal APRN.BAR ATTENDANT documented in this encounterWexner Medical Center09-16-2022 History of Present illness Narrative* Zachary Sawantanny [...] Care Merlene Martinez LPN documented in this encounterWexner Medical Center09-16-2022 Instructions* Patient Instructions* Zachary Obregon - 03/30/2022 [...] (or decreased sensation in your feet) a senior network systems engineer should always cut your toenails. Be [...] Go to your health care provider or senior network systems engineer to treat these conditions. documented in this encounterWexner Medical Center09-09-2022 History of Present illness Narrative* [...] 01/12/22 through 03/15/22 Goals updated on 03/23/2022. [place] in home exercise program. (Met) Patient will [...] Rosa Elena Poon PT documented in this encounterWexner Medical Center09-08-2022 Miscellaneous Notes* Telephone Encounter - Maggy Nelson [...] advise. Maggy Ibarra Pss documented in this encounterWexner Medical Center09-02-2022 History of Present illness Narrative* [...] 40 ALISIA Whiting PT documented in this encounterWexner Medical Center08-29-2022 History of Present illness Narrative* [...] Weber, ALISIA Poon PT documented in this encounterWexner Medical Center08-26-2022 Miscellaneous Notes* Addendum Note - Rosa Elena Poon PT - 03/09/2022 1:18 PM EDTAddended by: ROSA ELENA POON on: 03/09/2022 01:18 PM Modules accepted: Orders documented in this [facility]08-26-2022 History of Present illness Narrative* [...] 01/12/22 through 03/15/22 Goals updated on 03/09/2022. [place] in home exercise program. (Met) Patient will [...] Patient to be seen for Therapeutic exercise (34614);Neuromuscular re-education (33126);Gait Training (16116);Patient/Family/Caregiver Education PLAN FOR NEXT VISIT: Add bridging [...] Rosa Elena Poon PT documented in this encounterWexner Medical Center08-24-2022 Miscellaneous Notes* Telephone Encounter - [...] testing [place] Ma Cma documented in this encounterWexner Medical Center08-24-2022 Instructions* Patient Instructions* Abdulaziz Caldera MD - 03/07/2022 11:45 AM EDT Please take 2,000 units of vitamin D daily over the counter. documented in this encounterWexner Medical Center08-24-2022 History of Present illness Narrative* Abdulaziz Caldera MD - 03/07/2022 11:19 AM EDT Chief Complaint Patient presents with: 6 Month Exam ER F/U HPI Richard Roy is a 76 year old male who presents here today for ER Follow Up.. Patient evaluated at [facility] ED on 03/02 for complaint of [...] delayed closure on 05/28/18. Dr. Obregon at [facility] COLONOSCOPY 10/10/2021 repeat in 3 years [...] ONCE DAILY. FOR CHOLESTEROL. blood sugar diagnostic ([employer] ULTRA TEST) test strip Test blood sugar(s) [...] Abs Lymph 1.00 - 4.00 k/uL 1.81 [place]% % 6.9 Abs [place] <0.87 k/uL 0.86 Eosin% % 3.1 Abs [...] PANEL Abdulaziz Caldera MD documented in this encounterWexner Medical Center08-22-2022 History of Present illness Narrative* [...] Rosa Elena Poon PT documented in this encounterWexner Medical Center08-19-2022 History of Present illness Narrative* [...] Rosa Elena Poon PT documented in this encounterWexner Medical Center08-15-2022 History of Present illness Narrative* [...] Rosa Elena Lemon, PT documented in this encounterWexner Medical Center08-12-2022 History of Present illness Narrative* [...] Treatment Time Minutes (timed/untimed): 43 Karen Gus, LEAD TECHNICAL WRITER Rosa Elena Poon PT documented in this encounterWexner Medical Center08-03-2022 History of Present illness Narrative* [...] Rosa Elena Poon PT documented in this encounterWexner Medical Center07-29-2022 History of Present illness Narrative* [...] 01/12/22 through 03/15/22 Goals updated on 02/09/2022. [place] in home exercise program. (Met) Patient will [...] Patient to be seen for Therapeutic exercise (76757);Neuromuscular re-education (97618);Gait Training (30109);Patient/Family/Caregiver Education PLAN FOR NEXT VISIT: Continue to [...] Rosa Elena Poon PT documented in this encounterWexner Medical Center07-26-2022 Miscellaneous Notes* Telephone Encounter - [...] patient. Nola Gloria Pss documented in this encounterWexner Medical Center07-22-2022 History of Present illness Narrative* Cortney Levin, [...] 43 ALISIA Whiting PT documented in this encounterWexner Medical Center07-21-2022 Miscellaneous Notes* Telephone Encounter - [...] patient. Eulalia Sedinger [employer] documented in this encounterWexner Medical Center07-19-2022 History of Present illness Narrative* [...] Treatment Time Minutes (timed/untimed): 43 Karen Weber, LEAD TECHNICAL WRITER Justina Escoto, PT documented in this encounterWexner Medical Center07-12-2022 Miscellaneous Notes* Telephone Encounter - [...] you. Rebecca Gonzales RN documented in this encounterWexner Medical Center07-12-2022 History of Present illness Narrative* [...] 45 ALISIA Whiting PT documented in this encounterWexner Medical Center07-08-2022 Miscellaneous Notes* Telephone Encounter - Maggy Hubbard - 01/19/2022 2:08 PM EDT Called pt told him that he can not drive at this time. He voiced understanding. * Telephone Encounter - Jojo Kaur MD - 01/19/2022 1:[address] after syncopal episode * Telephone Encounter - Jojo Kuar MD - 01/19/2022 1:18 PM EDT Work [...] on driving. Please advise. documented in this encounterWexner Medical Center07-01-2022 History of Present illness Narrative* [...] of Care: created on 01/12/22 through 03/15/22 [place] in home exercise program. Patient will demonstrate [...] Planned: 16 Planned Treatment Interventions: Therapeutic exercise (22868);Neuromuscular re- education (05423);Gait Training (32674);Patient/Family/Caregiver Education PLAN FOR NEXT VISIT: Review HEP [...] Rosa Elena Poon PT documented in this encounterWexner Medical Center07-01-2022 Miscellaneous Notes* Telephone Encounter - [...] Pending consult. Please advise documented in this encounterWexner Medical Center06-29-2022 Miscellaneous Notes* Telephone Encounter - [...] his syncope/collapse. Thank you! documented in this encounterWexner Medical Center06-29-2022 Miscellaneous Notes* Result QuickNote - Justina Monique APRN.CNP - 01/10/2022 11:33 AM EDT Please call patient and notify him. Echocardiogram is stable. Valve replacement function is stable.No cardiac structure/function changes to explain his syncope/collapse. Thank you! documented in this encounterWexner Medical Center06-24-2022 History of Present illness Narrative* Jojo Kaur [...] medical record. REFERRING PHYSICIAN: Abdulaziz Caldera [address] [facility] [address] Accompanied by: Spouse ASSESSMENT: 76 year old [...] evaluation of folllow up after hospitalization in [facility]. he was admitted because of syncopal [...] others Since covid hit they went to [facility] and was staying in the house by [...] kidney disease, with long-term current use of insulin([facility]) 06/20/2016 Vitamin D deficiency 01/03/2022 PSH: PAST SURGICAL HISTORY Procedure Laterality Date ABDOMINAL SURGERY HX AMPUTATION METATARSAL+TOE,SINGLE Right 05/25/2018 with delayed closure on 05/28/18. Dr. Obregon at [facility] COLONOSCOPY 10/10/2021 repeat in 3 years [...] by mouth once daily. blood sugar diagnostic ([employer] ULTRA TEST) test strip Test blood sugar(s) [...] gait ,unsteady Cannot tandem Jojo Kaur M.D. [facility] [place] [facility] January 05, 2022 Total [...] lights on at night. documented in this encounterWexner Medical Center06-21-2022 Miscellaneous Notes* Telephone Encounter - Justina Garcia LPN - 01/02/2022 8:06 AM EDT I spoke to and informed him of Justina's response to lipid panel results. Patient voiced understanding. Justina Garcia LPN * Telephone Encounter - Justina Garcia LPN - 01/02/2022 7:43 AM EDT ----- Message from Justina Monique APRN.BAR ATTENDANT sent at 01/02/2022 7:38 AM EDT ----- Please call patient and notify him cholesterol has good control. Thank you! documented in this encounterWexner Medical Center06-20-2022 History of Present illness Narrative* Abdulaziz Caldera MD - 01/01/2022 10:20 AM EDT Chief Complaint Patient presents with: Hospital Follow Up: [facility] discharged 12/29/21 HPI Richard Roy is a 76 year old male who presents here today for Hospital Discharge Follow up. Accompanied today by his . Patient admitted to [facility] from 12/27 to 12/29 after presenting to the [facility] ED after being found slumped over his tractor at home earlier in the [place]. Had been working outside for unknown period of time. Had only eaten cookies and milk that day. Heat index over 100. Back to baseline at the time of evaluation by hospitalist at [facility]. Found to have leukocytosis at [place] [facility] and elevated lactic acid level. Noted [...] echo since it was not completed at [facility]. No other changes to regimen. Patient [...] Benign-Dr. 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 Dr. Obregon at [facility] COLONOSCOPY 10/10/2021 repeat in 3 years [...] by mouth once daily. blood sugar diagnostic ([email or web address] ULTRA TEST) test strip Test blood sugar(s) [...] SCRN Abdulaziz Caldera MD documented in this encounterWexner Medical Center06-20-2022 Instructions* Patient Instructions* Justina Monique APRN.BAR ATTENDANT - 01/01/2022 9:05 AM EDT High Blood [...] risk for high blood pressure. Developed by [employer]. Published by [employer]. Copyright 2014 [employer] and/or one of its subsidiaries. All rights reserved. documented in this encounterWexner Medical Center06-20-2022 History of Present illness Narrative* Justina Monique [...] delayed closure on 05/28/18. Dr. Obregon at [facility] COLONOSCOPY 10/10/2021 repeat in 3 years [...] daily. 90 tablet 3 blood sugar diagnostic ([employer] ULTRA TEST) test strip Test blood sugar(s) [...] injection (DEFINITY) INTRAVENOUS DIRECTED PRN Justina Monique, PHOTOGRAPHIC ARTIST.BAR ATTENDANT sodium chloride 0.9 % (flush) 10 mL (BD POSIFLUSH) 10 mL INTRAVENOUS DIRECTED PRN Justina Monique, PHOTOGRAPHIC ARTIST.BAR ATTENDANT Review of Systems Constitutional: Negative for chills, [...] MRI of his head CAD -MILD on [facility] 2004 -stress testing 2013 with no [...] 01, 2022, 8:57 AM documented in this encounterWexner Medical Center06-19-2022 Note. MICRO - Microbiology PROCEDURE: Blood Culture (bacterial) [*1] SOURCE: Blood BODY SITE: COLLECTED DATE/TIME: 12/27/2021 17:43 EDT RECEIVED DATE/TIME: 12/28/2021 14:37 EDT START DATE/TIME: 12/28/2021 14:37 EDT FREE TEXT SOURCE: FINAL REPORTS Final Report [] Verified Date/Time/Personnel: 12/31/2021 07:29 EDT Staphylococcus epidermidis Isolated from anaerobe bottle only. Refer to previous culture for susceptibility. [id number] PRELIMINARY REPORTS Preliminary Report [] Verified Date/Time/Personnel: 12/30/2021 09:39 EDT Staphylococcus epidermidis Isolated from anaerobe bottle only. Refer to previous culture for susceptibility. [id number] Preliminary Report [] Verified Date/Time/Personnel: 12/28/2021 15:59 EDT Culture has been received in lab and is no growth to date. Routine cultures are held for 5 days. STAINS GSANA [] Verified Date/Time/Personnel: 12/29/2021 14:08 EDT Gram Positive Cocci in clusters Performing Locations *1: This test was performed at: [address], [address]- , [facility] ([place])12-31-2021 Note. MICRO - Microbiology PROCEDURE: Blood Culture [...] Locations *1: This test was performed at: [address], [address]- , [facility] ([place])12-27-2021 SARS-CoV-2 (COVID-19) RNA ANGELY+probe Ql (Nph)Positive 2 *ABN* (12/27/21 5:43 PM)AO Auto Urine SSComment on above:Result Comment: positive covid olga ruthr Evaluation + Plan note Diagnostic Tests Pending * Urinalysis 12/27/21 * Blood Culture (bacterial) 12/27/21 * Blood Culture (bacterial) 12/27/21 [facility] 06-02-2022 History of Present illness Narrative* Abdulaziz Caldera MD - 12/14/2021 3:13 PM EDT Chief Complaint Patient presents with: Covid Follow Up HPI Richard Roy is a 76 year old male who presents here today for Above Complaints.. Patient positive for COVID in the [facility] ER last week on 12/06. Spoke [...] delayed closure on 05/28/18. Dr. Obregon at [facility] COLONOSCOPY 10/10/2021 repeat in 3 years [...] detail. Abdulaziz Caldera MD documented in this encounterWexner Medical Center05-27-2022 History of Present illness Narrative* [...] today for Above Complaints.. Patient evaluated at [facility] ER on 12/06 for complaint of generalized weakness, cough, and feeling off balance and developed cough which started on 12/04. Denied other COVID symptoms at that time. Lab workup in the ER was unremarkable aside from positive COVID test and INR of 3.3. UA unremarkable. CXR showed some ill defined densities in RLL which was likely 2/2 COVID infection. [place] to be well enough and discharged home [...] Benign-Dr. 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 Dr. Obregon at [facility] COLONOSCOPY 10/10/2021 repeat in 3 years [...] by mouth once daily. blood sugar diagnostic ([employer]CH ULTRA TEST) test strip Test blood sugar(s) [...] these interactions. [facility]. Since his symptoms are mild, he would prefer to rest at home. Discussed risks and benefits of treatment and that he is high risk for severe infection. Red flags for re-assessment reviewed with patient in detail. I spent a total of 25 minutes on the date of the service which included preparing to see the patient, [id number]-[id number] patient care, completing clinical documentation, obtaining and/or reviewing separately obtained history, performing a medically appropriate examination, counseling and educating the pat ient/family/caregiver and ordering medications, tests, or procedures. Abdulaziz Caldera MD documented in this encounterWexner Medical Center05-27-2022 Miscellaneous Notes* Telephone Encounter - [...] with one of our providers or with [facility]. * Telephone Encounter - Rosa Elena Velasco - 12/08/2021 2:16 PM EDT Patient called stating he was at [facility] ER on 12/06. Tested positive for covid. Patient was informed tocontact the office within 5 days to inform. Please advise patient when he can be seen in office. documented in this encounterWexner Medical Center05-09-2022 Miscellaneous Notes* Telephone Encounter - uElalia Gaston [facility] - 11/20/2021 9:49 AM EDT Patient has been identified by name and date of : Yes Pending Prescriptions Disp Refills METFORMIN ER 500 MG 24 HR TABLET,EXTENDED RELEASE Sig: Take 1 tablet by mouth daily with breakfast. NUHA: No OMAR-09/06/21 Labs-08/30/21 NOV-03/07/22 RX INSTRUCTIONS: Patient aware RX will be sent to pharmacy. No need to notify patient. Eulalia Gaston [employer] documented in this encounterWexner Medical Center04-11-2022 Instructions* Patient Instructions* Marcella Park PA-C - 10/23/2021 1:25 PM EDT -Recommend daily fiber supplement and plenty of fluids The following instructions are important for you related to your office visit today with the [facility] General Surgeons. INSTRUCTIONS FOR DIVERTICULA [...] you should contact our office immediately @ [phone] and ask to be transferred to the General Surgery department. The following instructions are important for you related to your office visit today with the [facility] General Surgeons. INSTRUCTIONS FOLLOWING A [...] you should contact our office immediately @ [phone] and ask to be transferred to the General Surgery department. documented in this encounterWexner Medical Center04-11-2022 History of Present illness Narrative* Marcella Park PA-C - 10/23/2021 1:09 PM EDT FOLLOW UP VISIT - ENDOSCOPY NAME: Richard Bonilla [facility] NO.: [id number] DATE OF SERVICE: 10/23/2021 : 1945 REFERRING [...] which included preparing to see the patient, [id number] patient care, completing clinical documentation, obtaining and/or reviewing separately obtained history, counseling and educating the patient/family/caregiver, communicating with other HCPs (not separately reported), independently interpreting results (not separately reported) and communicating results to the patient/family/caregiver. Marcella Park PA-C documented in this encounterWexner Medical Center03-29-2022 Nurse Note* Caroline Larkin RN [...] answered. Caroline Larkin RN documented in this encounterWexner Medical Center03-29-2022 History and physical note * [...] delayed closure on 05/28/18. Dr. Obregon at [facility] COLONOSCOPY FLX DX W/COLLJ SPEC WHEN [...] by mouth once daily. blood sugar diagnostic ([employer] ULTRA TEST) test strip Test blood sugar(s) [...] entered by the nurse and reviewed by hi Nursing Notes: Cortney Starr LPN 08/16/2021 8:38 [...] patient was offered a surgery[facility]procedure [facility] facility. I have counseled the [...] diagnosis) Marcella Park PA-C documented in this encounterWexner Medical Center03-24-2022 Miscellaneous Notes* Telephone Encounter - [...] send both by 10/06/21, so he can sweet pickle maker. Patient aware RX will be sent to pharmacy. No need to notify patient. Violette Call [facility] documented in this encounterWexner Medical Center03-23-2022 Miscellaneous Notes* Telephone Encounter - [...] advise, Halima Diaz RN documented in this encounterWexner Medical Center02-02-2022 Miscellaneous Notes* Telephone Encounter - Garland Vicente - 08/16/2021 9:36 AM EST 10-10-2021 [facility] documented in this encounterWexner Medical Center01-13-2022 NoteHNO ID: [id number] Author: REY Burt Service: Radiology Author Type: Immunohematologist Type: Progress Notes Filed: 07/27/2021 10:50 AM [...] July 27, 2021 TIME: 10:49 [id number] History of Past illness Narrative* Problem Noted [...] of this encounter (statuses as of 10/04/2021) [facility] of [facility] illness Narrative* [...] of this encounter (statuses as of 10/05/2021) [facility] of Past illness Narrative* [...] of this encounter (statuses as of 10/11/2021) [facility] of [facility] illness Narrative* [...] of this encounter (statuses as of 10/16/2021) [facility] of [facility] illness Narrative* [...] of this encounter (statuses as of 10/27/2021) [facility] of Past illness Narrative* [...] of this encounter (statuses as of 11/20/2021) [facility] of [facility] illness Narrative* [...] of this encounter (statuses as of 12/12/2021) [facility] of Past illness Narrative* [...] of this encounter (statuses as of 12/13/2021) [facility] of [facility] illness Narrative* [...] of this encounter (statuses as of 12/14/2021) [facility] illness Narrative* [...] of this encounter (statuses as of 01/01/2022) [facility] Narrative* [...] of this encounter (statuses as of 01/02/2022) [facility] Narrative* [...] of this encounter (statuses as of 01/02/2022) [facility] Narrative* [...] of this encounter (statuses as of 01/06/2022) [facility] Narrative* [...] of this encounter (statuses as of 01/10/2022) [facility] Narrative* [...] of this encounter (statuses as of 01/11/2022) [facility] Narrative* [...] of this encounter (statuses as of 01/12/2022) [facility] Narrative* [...] of this encounter (statuses as of 01/12/2022) [facility] Narrative* [...] of this encounter (statuses as of 01/19/2022) [facility] Narrative* [...] of this encounter (statuses as of 01/23/2022) [facility] Narrative* [...] of this encounter (statuses as of 01/25/2022) [facility] Narrative* [...] of this encounter (statuses as of 01/30/2022) [facility] Narrative* [...] of this encounter (statuses as of 02/01/2022) [facility] Narrative* [...] of this encounter (statuses as of 02/02/2022) [facility] Narrative* [...] of this encounter (statuses as of 02/02/2022) [facility] Narrative* [...] of this encounter (statuses as of 02/06/2022) [facility] Narrative* [...] of this encounter (statuses as of 02/09/2022) [facility] Narrative* [...] of this encounter (statuses as of 02/14/2022) [facility] Narrative* [...] of this encounter (statuses as of 02/26/2022) [facility] Narrative* [...] of this encounter (statuses as of 03/02/2022) [facility] Narrative* [...] of this encounter (statuses as of 03/05/2022) [facility] Narrative* [...] of this encounter (statuses as of 03/07/2022) [facility] Narrative* [...] of this encounter (statuses as of 03/08/2022) [facility] Narrative* [...] of this encounter (statuses as of 03/09/2022) [facility] Narrative* [...] of this encounter (statuses as of 03/12/2022) [facility] Narrative* [...] of this encounter (statuses as of 03/16/2022) [facility] Narrative* [...] of this encounter (statuses as of 03/23/2022) [facility] Narrative* [...] of this encounter (statuses as of 04/03/2022) [facility] Narrative* [...] of this encounter (statuses as of 04/04/2022) [facility] Narrative* [...] of this encounter (statuses as of 04/06/2022) [facility] Narrative* [...] of this encounter (statuses as of 04/17/2022) [facility] Narrative* [...] of this encounter (statuses as of 04/17/2022) [place] [id number] History of Past illness Narrative* Problem Noted [...] of this encounter (statuses as of 04/19/2022) [facility]* [...] of this encounter (statuses as of 05/16/2022) [facility] Narrative* [...] of this encounter (statuses as of 06/25/2022) [facility] Narrative* [...] of this encounter (statuses as of 07/14/2022) [facility] illness Narrative* [...] of this encounter (statuses as of 07/15/2022) [facility] History of Past illness Narrative* [...] of this encounter (statuses as of 07/18/2022) [facility] illness Narrative* [...] of this encounter (statuses as of 07/18/2022) [facility] illness Narrative* [...] of this encounter (statuses as of 07/19/2022) [facility] illness Narrative* [...] of this encounter (statuses as of 07/20/2022) [facility] illness Narrative* [...] of this encounter (statuses as of 07/25/2022) [facility] Narrative* [...] of this encounter (statuses as of 07/26/2022) [facility] Narrative* [...] of this encounter (statuses as of 07/27/2022) [facility] Narrative* [...] of this encounter (statuses as of 07/31/2022) [facility] Narrative* [...] of this encounter (statuses as of 08/06/2022) [facility] Narrative* [...] of this encounter (statuses as of 08/07/2022) [facility] Narrative* [...] of this encounter (statuses as of 08/09/2022) [facility] Narrative* [...] of this encounter (statuses as of 08/14/2022) [facility] Narrative* [...] of this encounter (statuses as of 08/16/2022) [facility] Narrative* [...] of this encounter (statuses as of 08/28/2022) [facility] Narrative* [...] of this encounter (statuses as of 09/07/2022) [facility] Narrative* [...] of this encounter (statuses as of 09/09/2022) [facility] Narrative* [...] of this encounter (statuses as of 09/25/2022) [facility] Narrative* [...] of this encounter (statuses as of 10/23/2022) [facility] Narrative* [...] of this encounter (statuses as of 11/20/2022) [facility] Narrative* [...] of this encounter (statuses as of 11/20/2022) [facility] Narrative* [...] of this encounter (statuses as of 12/13/2022) [facility] Narrative* [...] of this encounter (statuses as of 12/14/2022) [facility] Narrative* [...] of this encounter (statuses as of 12/18/2022) [facility] Narrative* [...] of this encounter (statuses as of 12/25/2022) [facility] Narrative* [...] of this encounter (statuses as of 12/27/2022) [facility] Narrative* [...] of this encounter (statuses as of 12/31/2022) [facility] Narrative* [...] of this encounter (statuses as of 01/03/2023) [facility] Narrative* [...] of this encounter (statuses as of 01/04/2023) [facility] Narrative* [...] of this encounter (statuses as of 01/04/2023) [facility] Narrative* [...] of this encounter (statuses as of 01/25/2023) [facility] Narrative* [...] of this encounter (statuses as of 01/29/2023) [facility] note* Diagnosis Type 2 diabetes mellitus with diabetic neuropathy, with long-term current use of insulin (HCC) Status post aortic valve repair Other postprocedural status Chronic anticoagulation Long-term (current) use of anticoagulants [facility] [place] [facility] Diagnosis Colon cancer screening Special screening for malignant neoplasms, colon documented in this encounter [facility] note* Diagnosis Colon cancer screening- Primary Special screening for malignant neoplasms, colon documented in this encounter [facility] note* Diagnosis Diverticulosis- Primary Diverticulosis of colon (without mention of hemorrhage) Cecal polyp documented in this encounter [facility] noteNo assessment information availableWUK Healthcare Work Phone: Evaluation note* Diagnosis COVID-19- Primary documented in this encounter [facility] note* Diagnosis COVID-19- Primary documented in this encounter [facility] note* Diagnosis Onset Date Resolution Status Acute dehydration acute ANTHONY (acute kidney injury) [place] Heat exhaustion acute Hyperkalemia acute Lactic acidosis acute Leukocytosis acute [facility] Work Phone: Evaluation note* Diagnosis Hyperlipidemia with target LDL less than 100- Primary Other and unspecified hyperlipidemia Primary hypertension Unspecified essential hypertension Thoracic aortic aneurysm without rupture (HCC) Thoracic aneurysm without mention of rupture 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 Syncope, unspecified syncope type Obesity, Class II, BMI 35-39.9 Obesity, unspecified documented in this encounter [facility] note* Diagnosis Syncope and collapse- Primary Altered mental status, unspecified altered mental status type Urinary incontinence, unspecified type Benign prostatic hyperplasia with nocturia Nocturia Vitamin D deficiency, unspecified Wound of left lower extremity, initial encounter Encounter for screening for malignant neoplasm of prostate Special screening for malignant neoplasm of prostate documented in this encounter [facility] note* Diagnosis Abnormality of gait due to impairment of balance- Primary Altered mental status, unspecified altered mental status type [facility] Chronic anticoagulation Long-term (current) use of anticoagulants Thoracic aortic aneurysm without rupture (HCC) Thoracic aneurysm without mention of rupture Status post aortic valve repair Other postprocedural status [facility] Diagnosis Type 2 diabetes mellitus with diabetic neuropathy, with long-term current use of insulin (HCC)- Primary [facility] [place] [facility]* Diagnosis Abnormality of gait due to impairment of balance- Primary [facility] [place] [facility]* Diagnosis Abnormality of gait due to impairment of balance- Primary [facility] [place] [facility]* Diagnosis Vitamin D deficiency Unspecified vitamin D deficiency [facility] [place] [facility]* Diagnosis Abnormality of gait due to impairment of balance- Primary [facility] [place] [facility]* Diagnosis Vitamin D deficiency Unspecified vitamin D deficiency [facility] [place] [facility]* Diagnosis Type 2 diabetes mellitus with stage 3 chronic kidney disease, with long-term current use of insulin ([facility]) [facility] [place] [facility]* Diagnosis Abnormality of gait due to impairment of balance- Primary [facility] [place] [facility]* Diagnosis Type 2 diabetes mellitus with diabetic neuropathy, with long-term current use of insulin ([facility]) [facility] [place] [facility]* Diagnosis Abnormality of gait due to impairment of balance- Primary [facility] [place] [facility]* Diagnosis Abnormality of gait due to impairment of balance- Primary [facility] [place] [facility]* Diagnosis Onset Date Resolution Status Acute dehydration resolved Heat exhaustion resolved [facility] Work Phone: Evaluation note* Diagnosis Abnormality of gait due to impairment of balance- Primary [facility] [place] [facility]* Diagnosis Status post aortic valve repair Other postprocedural status Chronic anticoagulation Long-term (current) use of anticoagulants [facility] [place] [facility]* Diagnosis Generalized weakness- Primary Other malaise and fatigue Supratherapeutic INR Abnormal coagulation profile ANTHONY (acute kidney injury) (HCC) Acute kidney failure, unspecified [facility] [place] [facility]* Diagnosis Abnormality of gait due to impairment of balance- Primary [facility] [place] [facility]* Diagnosis Abnormality of gait due to impairment of balance- Primary [facility] Diagnosis Urinary incontinence, unspecified type [facility] [place] [facility]* Diagnosis Abnormality of gait due to impairment of balance- Primary [facility] [place] [facility]* Diagnosis Onychomycosis- Primary Dermatophytosis of nail Pain in toe of left foot Pain in limb Amputated toe of right foot (HCC) Diabetic polyneuropathy associated with type 2 diabetes mellitus ([facility]) [facility] [place] [facility]* Diagnosis Generalized weakness- Primary Other malaise and fatigue Encounter for immunization Need for other specified prophylactic vaccination against single bacterial disease Mild depression Depressive disorder, not elsewhere classified [facility] [place] [facility]* Diagnosis Generalized anxiety disorder- Primary Polyneuropathy Unspecified hereditary and idiopathic peripheral neuropathy [facility] [place] [facility]* Diagnosis Urinary incontinence, unspecified type [facility] [place] [facility]* Diagnosis Onset Date Resolution Status History of pulmonary embolism acute History of thoracic aortic aneurysm repair acute NSTEMI, initial episode of care acute HTN (hypertension) [facility] Work Phone: Evaluation note* Diagnosis Dizziness- Primary Dizziness and giddiness Chronic frontal sinusitis [facility] [place] [facility]* Diagnosis Type 2 diabetes mellitus with diabetic neuropathy, with long-term current use of insulin ([facility])- Primary Diabetic polyneuropathy associated with type 2 diabetes mellitus (HCC) NSTEMI (non-ST elevated myocardial infarction) ([facility]) Acute myocardial infarction, subendocardial infarction, [...] disease, with long-term current use of insulin ([facility]) 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, macular edema presence unspecified ([facility]) documented [facility] [place] [facility]* Diagnosis Driving safety issue- Primary Other specified personal history presenting hazards to health documented [facility] [place] [facility]* Diagnosis Onychomycosis- Primary Dermatophytosis of nail Pain in toe of left foot Pain in limb Amputated toe of right foot (HCC) Diabetic polyneuropathy associated with type 2 diabetes mellitus (HCC) documented [facility] this [facility] [place] [facility]* Diagnosis Spinal stenosis, lumbar region, without neurogenic claudication- Primary Primary osteoarthritis of both knees Primary localized osteoarthrosis, lower leg documented [facility] [place] [facility]* Diagnosis Spinal stenosis, lumbar region, without neurogenic claudication- Primary Primary osteoarthritis of both knees Primary localized osteoarthrosis, lower leg documented [facility] [place] [facility]* Diagnosis Spinal stenosis, lumbar region, without neurogenic claudication- Primary Primary osteoarthritis of both knees Primary localized osteoarthrosis, lower leg documented [facility] this [facility] [place] [facility]* Diagnosis Spinal stenosis, lumbar region, without neurogenic claudication- Primary Primary osteoarthritis of both knees Primary localized osteoarthrosis, lower leg documented [facility] this [facility] [place] [facility]* Diagnosis Spinal stenosis, lumbar region, without neurogenic claudication- Primary Primary osteoarthritis of both knees Primary localized osteoarthrosis, lower leg documented [facility] this [facility] [place] [facility]* Diagnosis Spinal stenosis, lumbar region, without neurogenic claudication- Primary Primary osteoarthritis of both knees Primary localized osteoarthrosis, lower leg [facility] [place] [facility]* Diagnosis Onset Date Resolution Status Confusion acute Weakness acute [facility] Work Phone: Evaluation note* Diagnosis Onset Date Resolution Status Confusion acute Weakness acute ABLA (acute blood loss anemia) acute Acute encephalopathy acute Supratherapeutic INR acute Syncope acute Upper gastrointestinal bleeding acute Warfarin-induced coagulopathy acute [facility] Work Phone: Evaluation note* Diagnosis Onset [...] acute Warfarin-induced coagulopathy acute HTN (hypertension) chronic [facility] Work Phone: Evaluation note* Diagnosis Onset [...] type II acute Sick sinus syndrome acute [facility] Work Phone: Evaluation note* Diagnosis Onset [...] (INR) acute UTI (urinary tract infection) acute [facility] Work Phone: Evaluation note* Diagnosis Onset [...] UTI (urinary tract infection) acute Weakness acute [facility] Work Phone: Evaluation note* Diagnosis Onset [...] Second degree AV block, Mobitz type II [facility] Work Phone: Evaluation note* Diagnosis [...] Second degree AV block, Mobitz type II [facility] Work Phone: Evaluation note* Diagnosis [...] Second degree AV block, Mobitz type II [facility] Work Phone: Evaluation note* Diagnosis Onset Date Resolution Status Presence of cardiac pacemaker acute Syncope acute Second degree AV block, Mobitz type II chronic Sick sinus syndrome chronic Atrial fibrillation acute HLD (hyperlipidemia) acute Presence of cardiac pacemaker acute HTN (hypertension) chronic Second degree AV block, Mobitz type II [facility] Work Phone: Evaluation note* Diagnosis Onset Date Resolution Status Atrial fibrillation acute HLD (hyperlipidemia) acute Presence of cardiac pacemaker acute HTN (hypertension) chronic Second degree AV block, Mobitz type II [facility] Work Phone: History and physical note Author Dr. Aly [facility] January 04, 2023 4:32pm Note Date/Time January 04, 2023 4:12 pm [facility] Medical Records Department [address] [place] [id number] H&P Exam - Hospitalist 01/04/23 1607 MR#: [id number] Acct: [id number] Name: RICHARD ROY Rep #:[id number] : 1945 77 From: Karen Aly MD PCP: Dr. Luis Caldera MD Status :ADM LUIS ANGEL Location: [place] [address] HPI - General General Date of Admission: 01/04/23 Date of Service: 01/04/23 Chief Complaint: Confusion, falls. HPI Narrative The patient is a 77 y/o M w/ PMHx: AAA s/p repair, Hx COVID-19, Hx GI bleed, Valvular heart disease s/p AVR, HTN, HLD, VTE w/ Hx DVT/PE, Diabetes mellitus type II, Obesity who presents to the [facility] ED on 01/04/23 with history of [...] no acute intracranial abnormality, right maxillary sinusitis. COUNT INCLUDES THE [facility] Medical History Amputation of right great [...] 78.3 H, Lymph % (Auto) 12.8 L, [place] % (Auto) 5.9, Eos % (Auto) 1.7, [...] Sl. Cloudy, Urine pH 6.0, Ur Specific [place] 1.020, Urine Protein 15 H, Urine Glucose [...] type II, Obesity who presents to the [facility] ED on 01/04/23 with history of [...] 60 minutes. Charges/Coding Visit Charges Inpatient E&M: 68048 Init Hosp L2 01/04/23 1632 <Electronically signed by Karen Aly MD> Cosigner Signature (if applicable): CC: Dr. Karen Aly MD; Dr. Luis Caldera MD~ Signed [facility] Work Phone: Hospital course Narrative No data available for this section [facility] Hospital Discharge instructions No data available for this section [facility] Hospital Discharge instructions Additional Instructions Work-up [...] days of antibiotics please return for repeat evaluationWUK Healthcare Work Phone: Progress note No data available for this section [facility] Progrggl note Author Liu Hackett [facility] January 26, 2023 3:50pm Note Date/Time January 26, 2023 3:50 pm [facility] Medical Records Department [address] [place] [id number] Progress Note - GI 01/26/23 1549 MR#: [id number] Acct: [id number] Name: RICHARD ROY Rep #:[id number] : 1945 77 From: Liu Hackett DO PCP: Dr. Luis Caldera MD Status :ADM IN Location: [place] [address] Subjective Subjective Patient is doing well today. [...] 78.4 H, Lymph % (Auto) 8.1 L, [place] % (Auto) 9.6, Eos % (Auto) 1.6, [...] Heart rate in 50s.. Discussed with the processor inspector. No chest pain or tightness. Physical [...] ensure healing. Charges/Coding Visit Charges Inpatient E&M: 10207 Subs Hosp L3 01/26/23 1550 <Electronically signed by Liu Hackett DO> Cosigner Signature (if applicable): CC: ~ Signed [facility] Work Phone: Progress note Author Smith Leija [facility] February 13, 2023 3:58pm Note Date/Time February 13, 2023 3:5 8pm [facility] Medical Records Department [address] [place] [address] Progress Note - Infect Disease 02/13/23 1557 MR#: [id number] Acct: [id number] Name: RICHARD ROY Rep #:[id number] : 1945 77 From: Smith huang MD PCP: Dr. Luis Caldera MD Status :ADM IN Location: [place] [address] Physical Exam Narrative Feeling better, no fever, [...] Cosigner Signature (if applicable): CC: ~ Signed [facility] Work Phone: Reason for referral (narrative)* Outpatient Procedure (Routine) - Closed Specialty Diagnoses / Procedures Referred By Linn t Referred To Contact [facility] Diagnoses Colon cancer screening Procedures COLONOSCOPY SCREENING COLONOSCOPY FLX DX W/COLLJ SPEC WHEN PFRMD Marcella Park PA-C [address] [place] [address] [facility] [address] [address] Referral ID Status Reason Start Date Expiration Date V isits Requested Visits Authorized [id number] Closed Auto-Generate d Referral 08/16/2021 08/16/2022 1 1 [facility] for referral (narrative)* Outpatient Procedure (Routine) - Closed Specialty Diagnoses / Procedures Referred By Contac t Referred To Contact [facility] Diagnoses Colon cancer screening Procedures COLONOSCOPY SCREENING COLONOSCOPY FLX DX W/COLLJ SPEC WHEN PFMarcella Cho PA-C [address] [place] [address] [facility] [address] [address] Referral ID Status Reason Start Date Expiration Date V isits Requested Visits Authorized [id number] Closed Auto-Generate d Referral 08/16/2021 08/16/2022 1 1 [facility] for referral (narrative)No reason for referral information availableWUK Healthcare Work Phone: Reason for visit Narrative* Outpatient Procedure (Routine) - Closed Specialty Diagnoses / Procedures Referred By Contac t Referred To Contact [facility] Diagnoses Colon cancer screening Procedures COLONOSCOPY SCREENING COLONOSCOPY FLX DX W/COLLJ SPEC WHEN Marcella Alatorre PA-C [address] [place] [address] [facility] [address] [address] Referral ID Status Reason Start Date Expiration Date V isits Requested Visits Authorized [id number] Closed Auto-Generate d Referral 08/16/2021 08/16/2022 1 1 [facility] for visit Narrative* Outpatient Procedure (Routine) - Closed Specialty Diagnoses / Procedures Referred By Contac t Ref[facility] Diagnoses Chronic anticoagulation Thoracic aortic aneurysm without rupture (HCC) Status post aortic valve repair Procedures ECHO TTE W/DOPPLER, Justina Arguelles, PHOTOGRAPHIC ARTIST.BAR ATTENDANT [address] [place] [address] [facility] [place] [address] Referral ID Status Reason Start Date Expiration Date V isits Requested Visits Authorized [id number] Closed Auto-Generate d Referral 07/03/2021 07/03/2022 1 1 [facility] Advance Directives No Advanced Directives Records FoundDocuments on File Type Date Recorded 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 Expl anation Advance Directive(s) 09/12/2021 7:14 AM Documents on File Type Date Recorded 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 Expl 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 Advance Directive(s) 09/12/2021 7:14 AM Advance Directive Response Recorded Date/ Time Advance Directives Yes September 16 11:11pm Living Will No December 06, 2021 1 1:07pm Power of Solar Business Developer No December 06, 2021 11:07pm Advance Directive Response Recorded Date/ Time Name of Medical Power of Solar Business Developer Aníbal Roy December 27, 2021 10:36pm Advance Directives Yes September 16 11:11pm Living Will Yes December 27, 2021 10:36pm Power of Solar Business Developer Yes December 27 10:36pm Advance Directive Response Recorded Date/ Time Name of Medical Power of Solar Business Developer Aníbal Roy December 27, 2021 10:36pm Name of Medical Power of Solar Business Developer TEDDY ROY (SON ) March 02, 2022 2:34pm Advance Directives Yes September 16 11:11pm Living Will Yes March 02 2:34pm Power of Solar Business Developer Yes March 02, 022 2:34pm Advance Directive Response Recorded Date/ Time Name of Medical Power of Solar Business Developer teddy roy July 10, 2022 3:06am Advance Directives Yes September 16 10:11pm Living Will Yes July 10, 022 3:06am Power of Solar Business Developer Yes July 10, 2022 3:06am Advance Directive Response Recorded Date/ Time Name of Medical Power of Solar Business Developer ? January 04, 2023 11:15am Advance Directives Yes September 16 11:11pm Living Will Yes January 04, 2023 11:15am Power of Solar Business Developer Yes January 04 11:15am Advance Directive Response Recorded Date/ Time Name of Medical Power of Solar Business Developer Ciarra Roy (spouse), Teddy Roy (son) January 04, 2023 6:23pm Name of Medical Power of Solar Business Developer ANÍBAL ROY January 21, 2023 8:26am Advance Directives Yes September 16 11:11pm Living Will Yes January 21, 2023 8:26am Power of Solar Business Developer Yes January 21 8:26am Advance Directive Response Recorded Date/ Time Name of Medical Power of Solar Business Developer Ciarra Roy (spouse), Teddy Roy (son) January 04, 2023 6:23pm Name of Medical Power of Solar Business Developer Ciarra Roy January 21, 2023 12:23pm Advance Directives Yes September 16 11:11pm Living Will Yes January 21, 2023 12:23pm Power of Solar Business Developer Yes January 21 12:23pm Advance Directive Response Recorded Date/ Time Name of Medical Power of Solar Business Developer Ciarra Roy (spouse), Teddy Roy (son) January 04, 2023 6:23pm Name of Medical Power of Solar Business Developer Ciarra Roy (spouse) January 27, 2023 6:04pm Advance Directives Yes September 16 11:11pm Living Will Yes January 27, 2023 6:04pm Power of Solar Business Developer Yes January 27 6:04pm Name of Medical Power of Solar Business Developer Ciarra Roy January 21, 2023 12:23pm Advance Directive Response Recorded Date/ Time Name of Medical Power of Solar Business Developer Ciarra Roy (spouse), Teddy Roy (son) January 04, 2023 6:23pm Name of Medical Power of Solar Business Developer Ciarra Regant January 27, 2023 9:40pm Name of Medical Power of Solar Business Developer Ciarra Horse, February 10, 2023 9:27pm Advance Directives Yes September 16 11:11pm Living Will Yes February 10, 2023 9:27pm Power of Solar Business Developer Yes February 10 9:27pm Name of Medical Power of Solar Business Developer Ciarra Regant January 21, 2023 12:23pm Advance Directive Response Recorded Date/ Time Name of Medical Power of Solar Business Developer Ciarra Roy (spouse), Teddy Roy (son) January 04, 2023 6:23pm Name of Medical Power of Solar Business Developer Ciarra Regant January 27, 2023 9:40pm Name of Medical Power of Solar Business Developer Ciarra Robison, February 10, 2023 9:27pm Name of Medical Power of Solar Business Developer Ciarra MEEKS, February 11, 2023 4:25pm Advance Directives Yes September 16 11:11pm Living Will Yes February 11, 2023 4:25pm Power of Solar Business Developer Yes February 11 4:25pm Name of Medical Power of Solar Business Developer Ciarra Stephon January 21, 2023 12:23pm Advance Directive Response Recorded Date/ Time Name of Medical Power of Solar Business Developer Ciarra Roy (spouse), Teddy Roy (son) January 04, 2023 6:23pm Name of Medical Power of Solar Business Developer Ciarra Regant January 27, 2023 9:40pm Name of Medical Power of Solar Business Developer Ciarra Robison, February 10, 2023 9:27pm Name of Medical Power of Solar Business Developer Ciarra MEEKS, February 11, 2023 8:40pm Advance Directives Yes September 16 11:11pm Living Will Yes February 11, 2023 8:40pm Power of Solar Business Developer Yes February 11 8:40pm Name of Medical Power of Solar Business Developer Ciarra Regant January 21, 2023 12:23pm Advance Directive Response Recorded Date/ Time Name of Medical Power of Solar Business Developer Ciarra Roy January 27, 2023 9:40pm Name of Medical Power of Solar Business Developer Ciarra Robison, February 10, 2023 9:27pm Name of Medical Power of Solar Business Developer JEANNA Ciarra, w david February 11, 2023 8:40pm Advance Directives Yes September 16 11:11pm Living Will Yes February 11, 2023 8:40pm Power of Solar Business Developer Yes February 11 8:40pm Name of Medical Power of Solar Business Developer Ciarra Roy January 21, 2023 12:23pm Advance Directive Response Recorded Date/ Time Name of Medical Power of Solar Business Developer Ciarra Roy January 27, 2023 8:40pm Name of Medical Power of Solar Business Developer Ciarra Robison, February 10, 2023 8:27pm Name of Medical Power of Solar Business Developer Ciarra MEEKS w david February 11, 2023 7:40pm Advance Directives Yes September 16 10:11pm Living Will Yes February 11, 2023 7:40pm Power of Solar Business Developer Yes February 11 7:40pm Name of Medical Power of Solar Business Developer Ciarra Roy January 21, 2023 11:23am Advance Directive Response Recorded Date/ Time Name of Medical Power of Solar Business Developer Ciarra Roy January 27, 2023 8:40pm Name of Medical Power of Solar Business Developer Ciarra Robison, February 10, 2023 8:27pm Name of Medical Power of Solar Business Developer Ciarra MEEKS w david February 11, 2023 7:40pm Advance Directives Yes September 16 10:11pm Living Will No May 30, 2 023 11:36am Power of Solar Business Developer No May 30, 2023 11:36am Advance Directive Response Recorded Date/ Time Advance Directives Yes September 16 10:11pm Living Will No May 30, 2 023 11:36am Power of Solar Business Developer No May 30, 2023 11:36am Advance Directive Response Recorded Date/ Time Advance Directives Yes September 16 11:11pm Living Will No May 30, 2 023 12:36pm Power of Solar Business Developer No May 30, 2023 12:36pm Advance Directive [...] day post implant check RECURRENT GI BLEED LONG-TERM LABWORK AMS BACTEREMIA, CYSTITIS Urinary tract infection [...] day post implant check RECURRENT GI BLEED LONG-TERM LABWORK AMS LAB WORK BACTEREMIA, CYSTITIS Urinary tract infection BACTEREMIA, CYSTITIS BACTEREMIA, CYSTITIS LAB WORK LAB WORK 1 wk wound check LABWORK LABWORK LABWORK LABWORK LABWORK LONG-TERM LABWORK LABWORK 6 wk post PPM implant [...] day post implant check RECURRENT GI BLEED LONG-TERM LABWORK AMS LAB WORK BACTEREMIA, CYSTITIS Urinary tract infection BACTEREMIA, CYSTITIS BACTEREMIA, CYSTITIS LAB WORK LAB WORK 1 wk wound check LABWORK LABWORK LABWORK LABWORK LABWORK LONG-TERM LABWORK LABWORK 6 wk post PPM implant f/u / KR @ 2p S/P PACER IMPLANT 6 wk fu / NAA @ 1:30 LABWORK LONG-TERM LAB WORK LONG-TERM LABWORK LONG-TERM LAB WORK Reason for Visit Confusion Weakness [...] day post implant check RECURRENT GI BLEED LONG-TERM LABWORK AMS LAB WORK BACTEREMIA, CYSTITIS Urinary tract infection BACTEREMIA, CYSTITIS BACTEREMIA, CYSTITIS LAB WORK LAB WORK 1 wk wound check LABWORK LABWORK LABWORK LABWORK LABWORK LONG-TERM LABWORK LABWORK 6 wk post PPM implant f/u / KR @ 2p S/P PACER IMPLANT 6 wk fu / NAA @ 1:30 LABWORK LONG-TERM LAB WORK LONG-TERM LABWORK LONG-TERM LAB WORK LONG-TERM LAB WORK Reason for Visit Confusion Weakness [...] day post implant check RECURRENT GI BLEED LONG-TERM LABWORK AMS LAB WORK BACTEREMIA, CYSTITIS Urinary tract infection BACTEREMIA, CYSTITIS BACTEREMIA, CYSTITIS LAB WORK LAB WORK 1 wk wound check LABWORK LABWORK LABWORK LABWORK LABWORK LONG-TERM LABWORK LABWORK 6 wk post PPM implant f/u / KR @ 2p S/P PACER IMPLANT 6 wk fu / NAA @ 1:30 LABWORK LONG-TERM LAB WORK LONG-TERM LABWORK LONG-TERM LAB WORK LONG-TERM LAB WORK LABWORK Reason for Visit Acute [...] day post implant check RECURRENT GI BLEED LONG-TERM LABWORK AMS LAB WORK BACTEREMIA, CYSTITIS Urinary tract infection BACTEREMIA, CYSTITIS BACTEREMIA, CYSTITIS LAB WORK LAB WORK 1 wk wound check LABWORK LABWORK LABWORK LABWORK LABWORK LONG-TERM LABWORK LABWORK 6 wk post PPM implant f/u / KR @ 2p S/P PACER IMPLANT 6 wk fu / NAA @ 1:30 LABWORK LONG-TERM LAB WORK LONG-TERM LABWORK LONG-TERM LAB WORK LONG-TERM LAB WORK LABWORK LABWORK Reason for Visit [...] day post implant check RECURRENT GI BLEED LONG-TERM LABWORK AMS LAB WORK BACTEREMIA, CYSTITIS Urinary tract infection BACTEREMIA, CYSTITIS BACTEREMIA, CYSTITIS LAB WORK LAB WORK 1 wk wound check LABWORK LABWORK LABWORK LABWORK LABWORK LONG-TERM LABWORK LABWORK 6 wk post PPM implant f/u / KR @ 2p S/P PACER IMPLANT 6 wk fu / NAA @ 1:30 LABWORK LONG-TERM LAB WORK LONG-TERM LABWORK LONG-TERM LAB WORK LONG-TERM LAB WORK LABWORK LABWORK LONG-TERM LAB WORK Reason for Visit HTN (hypertension) [...] day post implant check RECURRENT GI BLEED LONG-TERM LABWORK AMS LAB WORK BACTEREMIA, CYSTITIS Urinary tract infection BACTEREMIA, CYSTITIS BACTEREMIA, CYSTITIS LAB WORK LAB WORK 1 wk wound check LABWORK LABWORK LABWORK LABWORK LABWORK LONG-TERM LABWORK LABWORK 6 wk post PPM implant f/u / KR @ 2p S/P PACER IMPLANT 6 wk fu / NAA @ 1:30 LABWORK LONG-TERM LAB WORK LONG-TERM LABWORK LONG-TERM LAB WORK LONG-TERM LAB WORK LABWORK LABWORK LONG-TERM LAB WORK Reason for Visit HTN (hypertension) [...] II Chief Complaint LABWORK LABWORK LABWORK LABWORK LONG-TERM LABWORK LABWORK 6 wk post PPM implant f/u / KR @ 2p S/P PACER IMPLANT 6 wk fu / NAA @ 1:30 LABWORK LONG-TERM LAB WORK LONG-TERM LABWORK LONG-TERM LAB WORK LONG-TERM LAB WORK LABWORK LABWORK LONG-TERM LAB WORK LABWORK Reason for Visit Presence of cardiac pacemaker Syncope Second degree AV block, Mobitz type II Sick sinus syndrome Atrial fibrillation HLD (hyperlipidemia) Presence of cardiac pacemaker HTN (hypertension) Second degree AV block, Mobitz type II Chief Complaint LABWORK LONG-TERM LABWORK LABWORK 6 wk post PPM implant f/u / KR @ 2p S/P PACER IMPLANT 6 wk fu / NAA @ 1:30 LABWORK LONG-TERM LAB WORK LONG-TERM LABWORK LONG-TERM LAB WORK LONG-TERM LAB WORK LABWORK LABWORK LONG-TERM LAB WORK LONG-TERM LAB WORK LABWORK LABWORK Reason for Visit Presence of cardiac pacemaker Syncope Second degree AV block, Mobitz type II Sick sinus syndrome Atrial fibrillation HLD (hyperlipidemia) Presence of cardiac pacemaker HTN (hypertension) Second degree AV block, Mobitz type II Chief Complaint LONG-TERM LABWORK LABWORK 6 wk post PPM implant f/u / KR @ 2p S/P PACER IMPLANT 6 wk fu / NAA @ 1:30 LABWORK LONG-TERM LAB WORK LONG-TERM LABWORK LONG-TERM LAB WORK LONG-TERM LAB WORK LABWORK LABWORK LONG-TERM LAB WORK LONG-TERM LAB WORK LABWORK LONG-TERM LAB WORK LABWORK Reason for Visit Presence of cardiac pacemaker Syncope Second degree AV block, Mobitz type II Sick sinus syndrome Atrial fibrillation HLD (hyperlipidemia) Presence of cardiac pacemaker HTN (hypertension) Second degree AV block, Mobitz type II Chief Complaint LABWORK 6 wk post PPM implant f/u / KR @ 2p S/P PACER IMPLANT 6 wk fu / NAA @ 1:30 LABWORK LONG-TERM LAB WORK LONG-TERM LABWORK LONG-TERM LAB WORK LONG-TERM LAB WORK LABWORK LABWORK LONG-TERM LAB WORK LONG-TERM LAB WORK LABWORK LONG-TERM LAB WORK LABWORK LABWORK Reason for Visit Presence of cardiac pacemaker Syncope Second degree AV block, Mobitz type II Sick sinus syndrome Atrial fibrillation HLD (hyperlipidemia) Presence of cardiac pacemaker HTN (hypertension) Second degree AV block, Mobitz type II Chief Complaint LABWORK 6 wk post PPM implant f/u / KR @ 2p S/P PACER IMPLANT 6 wk fu / NAA @ 1:30 LABWORK LONG-TERM LAB WORK LONG-TERM LABWORK LONG-TERM LAB WORK LONG-TERM LAB WORK LABWORK LABWORK LONG-TERM LAB WORK LONG-TERM LAB WORK LABWORK LONG-TERM LAB WORK LONG-TERM LABWORK LABWORK LABWORK Reason for Visit Presence of cardiac pacemaker Syncope Second degree AV block, Mobitz type II Sick sinus syndrome Atrial fibrillation HLD (hyperlipidemia) Presence of cardiac pacemaker HTN (hypertension) Second degree AV block, Mobitz type II Chief Complaint 6 wk post PPM implan t f/u / KR @ 2p S/P PACER IMPLANT 6 wk fu / NAA @ 1:30 LABWORK LONG-TERM LAB WORK LONG-TERM LABWORK LONG-TERM LAB WORK LONG-TERM LAB WORK LABWORK LABWORK LONG-TERM LAB WORK LONG-TERM LAB WORK LABWORK LONG-TERM LAB WORK LONG-TERM LABWORK LABWORK LONG-TERM LAB WORK LABWORK Reason for Visit Presence of cardiac pacemaker Syncope Second degree AV block, Mobitz type II Sick sinus syndrome Atrial fibrillation HLD (hyperlipidemia) Presence of cardiac pacemaker HTN (hypertension) Second degree AV block, Mobitz type II Chief Complaint LABWORK LONG-TERM LAB WORK LONG-TERM LABWORK LONG-TERM LAB WORK LONG-TERM LAB WORK LABWORK LABWORK LONG-TERM LAB WORK LONG-TERM LAB WORK LABWORK LONG-TERM LAB WORK LONG-TERM LABWORK LABWORK LONG-TERM LAB WORK LABWORK LABWORK LABWORK Chief Complaint LONG-TERM LAB WOR K LONG-TERM LABWORK LONG-TERM LAB WORK LONG-TERM LAB WORK LABWORK LABWORK LONG-TERM LAB WORK LONG-TERM LAB WORK LABWORK LONG-TERM LAB WORK LONG-TERM LABWORK LABWORK LONG-TERM LAB WORK LABWORK LABWORK LABWORK LABWORK Chief Complaint LONG-TERM LAB WOR K LONG-TERM LAB WORK LABWORK LABWORK LONG-TERM LAB WORK LONG-TERM LAB WORK LABWORK LONG-TERM LAB WORK LONG-TERM LABWORK LABWORK LONG-TERM LAB WORK LABWORK LONG-TERM LAB WORK LABWORK LABWORK LABWORK Chief Complaint LONG-TERM LAB WOR K LABWORK LABWORK LONG-TERM LAB WORK LONG-TERM LAB WORK LABWORK LONG-TERM LAB WORK LONG-TERM LABWORK LABWORK LONG-TERM LAB WORK LABWORK LONG-TERM LAB WORK LABWORK LABWORK LABWORK LABWORK Chief Complaint LONG-TERM LAB WOR K LABWORK LABWORK LONG-TERM LAB WORK LONG-TERM LAB WORK LABWORK LONG-TERM LAB WORK LONG-TERM LABWORK LABWORK LONG-TERM LAB WORK LABWORK LONG-TERM LAB WORK LABWORK LABWORK LABWORK LONG-TERM LABWORK LABWORK Chief Complaint LABWORK LABWORK LONG-TERM LAB WORK LONG-TERM LAB WORK LABWORK LONG-TERM LAB WORK LONG-TERM LABWORK LABWORK LONG-TERM LAB WORK LABWORK LONG-TERM LAB WORK LABWORK LABWORK LABWORK LONG-TERM LABWORK LABWORK LABWORK Chief Complaint LABWORK LONG-TERM LAB WORK LONG-TERM LAB WORK LABWORK LONG-TERM LAB WORK LONG-TERM LABWORK LABWORK LONG-TERM LAB WORK LABWORK LONG-TERM LAB WORK LABWORK LABWORK LABWORK LONG-TERM LABWORK LABWORK LABWORK LABWORK Chief Complaint LONG-TERM LAB WOR K LONG-TERM LAB WORK LABWORK LONG-TERM LAB WORK LONG-TERM LABWORK LABWORK LONG-TERM LAB WORK LABWORK LONG-TERM LAB WORK LABWORK LABWORK LABWORK LONG-TERM LABWORK LABWORK LABWORK LABWORK LABWORK Chief Complaint LONG-TERM LAB WOR K LABWORK LONG-TERM LAB WORK LONG-TERM LABWORK LABWORK LONG-TERM LAB WORK LABWORK LONG-TERM LAB WORK LABWORK LABWORK LABWORK LONG-TERM LABWORK LABWORK LABWORK LABWORK LABWORK LABWORK Chief Complaint LONG-TERM LAB WOR K LABWORK LONG-TERM LAB WORK LONG-TERM LABWORK LABWORK LONG-TERM LAB WORK LABWORK LONG-TERM LAB WORK LABWORK LABWORK LABWORK LONG-TERM LABWORK LABWORK LABWORK LABWORK LABWORK LABWORK LABWORK Chief Complaint LONG-TERM LAB WOR K LABWORK LONG-TERM LAB WORK LONG-TERM LABWORK LABWORK LONG-TERM LAB WORK LABWORK LONG-TERM LAB WORK LABWORK LABWORK LABWORK LONG-TERM LABWORK LABWORK LABWORK LABWORK LABWORK LABWORK LABWORK LABWORK Chief Complaint LONG-TERM LAB WOR K LABWORK LONG-TERM LAB WORK LONG-TERM LABWORK LABWORK LONG-TERM LAB WORK LABWORK LONG-TERM LAB WORK LABWORK LABWORK LABWORK LONG-TERM LABWORK LABWORK LABWORK LABWORK LABWORK LABWORK LABWORK LONG-TERM LAB WORK LABWORK Chief Complaint LONG-TERM LAB WOR K LABWORK LONG-TERM LAB WORK LONG-TERM LABWORK LABWORK LONG-TERM LAB WORK LABWORK LONG-TERM LAB WORK LABWORK LABWORK LABWORK LONG-TERM LABWORK LABWORK LABWORK LABWORK LABWORK LABWORK LABWORK LONG-TERM LAB WORK LABWORK LABWORK 6 M FU Chief Complaint LONG-TERM LAB WOR K LONG-TERM LABWORK LABWORK LONG-TERM LAB WORK LABWORK LONG-TERM LAB WORK LABWORK LABWORK LABWORK LONG-TERM LABWORK LABWORK LABWORK LABWORK LABWORK LABWORK LABWORK LONG-TERM LAB WORK LABWORK LABWORK LABWORK 6 M FU Reason for Visit Atrial fibrillation HLD (hyperlipidemia) Presence of cardiac pacemaker HTN (hypertension) Second degree AV block, Mobitz type II Chief Complaint LONG-TERM LABWORK LABWORK LONG-TERM LAB WORK LABWORK LONG-TERM LAB WORK LABWORK LABWORK LABWORK LONG-TERM LABWORK LABWORK LABWORK LABWORK LABWORK LABWORK LABWORK LONG-TERM LAB WORK LABWORK LABWORK LABWORK 6 M FU LONG-TERM LAB WORK Reason for Visit Atrial fibrillation HLD (hyperlipidemia) Presence of cardiac pacemaker HTN (hypertension) Second degree AV block, Mobitz type II Chief Complaint LONG-TERM LAB WOR K LABWORK LONG-TERM LAB WORK LABWORK LABWORK LABWORK LONG-TERM LABWORK LABWORK LABWORK LABWORK LABWORK LABWORK LABWORK LONG-TERM LAB WORK LABWORK LABWORK LABWORK 6 M LABWORK LONG-TERM LAB WORK Reason for Visit Atrial fibrillation HLD (hyperlipidemia) Presence of cardiac pacemaker HTN (hypertension) Second degree AV block, Mobitz type II Chief Complaint LABWORK LABWORK LONG-TERM LABWORK LABWORK 6 wk post PPM implant f/u / KR @ 2p S/P PACER IMPLANT 6 wk fu / NAA @ 1:30 LABWORK LONG-TERM LAB WORK LONG-TERM LABWORK LONG-TERM LAB WORK LONG-TERM LAB WORK LABWORK LABWORK LONG-TERM LAB WORK LONG-TERM LAB WORK LABWORK Reason for Visit Presence of cardiac pacemaker Syncope Second degree AV block, Mobitz type II Sick sinus syndrome Atrial fibrillation HLD (hyperlipidemia) Presence of cardiac pacemaker HTN (hypertension) Second degree AV block, Mobitz type II Chief Complaint Admit Date LONG-TERM LAB WORK July 01 4:00am LONG-TERM LAB WORK July 07 5:00am LABWORK July 27, 2024 5 :00am LONG-TERM LAB WORK August 04, 2024 5:00am LONG-TERM LAB WORK September 29, 2024 4 :00am [...] 2024 1:0 9pm Chief Complaint Admit Date LONG-TERM LAB WORK July 01 4:00am LONG-TERM LAB WORK July 07 5:00am LABWORK July 27, 2024 5 :00am LONG-TERM LAB WORK August 04, 2024 5:00am LONG-TERM LAB WORK September 29, 2024 4 :00am LONG-TERM LAB WORK October 05, 2024 5 :00am [...] Diagnoses Driving safety issue Procedures CONSULT TO TOUR AGENT OCCUPATIONAL THERAPY EVAL HIGH COMPLEX 60 MINS Jojo Kaur MD [address] [place] [address] [facility] [address] [address] Referral ID Status Reason Start Date Expiration Date Visits Requested Visits Authorized [id number] Authorized PCP Requested Referral Auto-Generate d Referral 09/07/2022 09/07/2023 99 99 Specialty Diagnoses / Procedures Referred By Linn carrillo Referred To Contact [facility] Diagnoses Polyneuropathy Procedures CONSULT TO PHYSICAL THERAPY PHYSICAL THERAPY EVALUATION HIGH COMPLEX 45 MINS Jojo Kaur MD [address] [place] [address] [facility] [address] [address] Referral ID Status Reason Start Date Expiration Date Visits Requested Visits Authorized [id number] Authorized PCP Requested Referral Auto-Generate d Referral 04/17/2022 04/17/2023 99 99 Specialty Diagnoses / Procedures Referred By Contac t Referred To Contact Psychology Diagnoses Generalized anxiety disorder Procedures CONSULT TO PSYCHOLOGY OFFICE/OUTPATIENT [facility] 60-74 MINUTES Jojo Kaur MD [address] [place] [address] Referral ID Status Reason Start Date Expiration Date Visits Requested Visits Authorized [id number] Pending Review PCP Requested Referral 04/17/2022 04/17/2023 1 1 Specialty Diagnoses / Procedures Referred By Contac t Referred To Contact Podiatry Diagnoses Type 2 diabetes mellitus with diabetic neuropathy, with long-term current use of insulin ([facility]) Procedures CONSULT TO PODIATRY OFFICE/OUTPATIENT [facility] 60-74 MINUTES PodlogRoselia hernandez APRN.[facility] [address] [place] [address] Referral ID Status Reason Start Date Expiration Date Visits Requested Visits Authorized [id number] Authorized PCP Requested Referral 01/12/2022 01/11/2023 1 1 Specialty Diagnoses / Procedures Referred By Contac t Referred To Contact [facility] Diagnoses Altered mental status, unspecified altered mental status type Procedures CONSULT TO SPEECH THERAPY OFFICE/OUTPATIENT [facility] 60-74 MINUTES Jojo Kaur MD [address] [place] [address] [facility] [address] [address] Referral ID Status Reason Start Date Expiration Date Visits Requested Visits Authorized [id number] Authorized Auto-Generat ed Referral 01/05/2022 01/05/2023 99 99 Specialty Diagnoses / Procedures Referred By Contac t Referred To Contact [facility] Diagnoses Abnormality of gait due to impairment of balance Procedures CONSULT TO PHYSICAL THERAPY PHYSICAL THERAPY EVALUATION HIGH COMPLEX 45 MINS Jojo Kaur MD [address] [place] [address] [facility] [address] [address] Referral ID Status Reason Start Date Expiration Date Visits Requested Visits Authorized [id number] Authorized PCP Requested Referral Auto-Generate d Referral 01/05/2022 01/05/2023 99 99 Specialty Diagnoses / Procedures Referred By Contac t Referred To Contact [facility] Diagnoses Altered mental status, unspecified altered mental status type Procedures EPIL EEG ROUTINE ELECTROENCEPHALOGRAM REC COMA/SLEEP ONLY Jojo Kaur MD [address] [place] [address] [facility] [address] [place] [address] Referral ID Status Reason Start Date Expiration Date Visits Requested Visits Authorized [id number] Authorized Auto-Generat ed Referral 01/05/2022 01/05/2023 1 1 Specialty Diagnoses / Procedures Referred By Contac t Referred To Contact Neurology Diagnoses Altered mental status, unspecified altered mental status type Procedures CONSULT TO NEUROLOGY OFFICE/OUTPATIENT [facility] 60-74 MINUTES Abdulaziz Caldera MD [address] [place] [address] Referral ID Status Reason Start Date Expiration Date Visits Requested Visits Authorized [id number] Authorized PCP Requested Referral 01/01/2022 01/01/2023 1 1 Summary Purpose Additional Source Comments Source Comments (unrecognize d section and content) In the event this informatio n is protected by the Federal Confidentiality of Alcohol and Drug Abuse Patient Records regulations: The Federal rules restrict any use of the information to criminally investigate or prosecute any alcohol or drug abuse patient.[facility] the event this information is protected by the Federal Confidentiality of Alcohol and Drug Abuse Patient Records regulations: The Federal rules restrict any use of the information to criminally investigate or prosecute any alcohol or drug abuse patient.[facility] the event this information is protected by the Federal Confidentiality of Alcohol and Drug Abuse Patient Records regulations: The Federal rules restrict any use of the information to criminally investigate or prosecute any alcohol or drug abuse patient.[facility] the event this information is protected by the Federal Confidentiality of Alcohol and Drug Abuse Patient Records regulations: The Federal rules restrict any use of the information to criminally investigate or prosecute any alcohol or drug abuse patient.[facility] the event this information is protected by the Federal Confidentiality of Alcohol and Drug Abuse Patient Records regulations: The Federal rules restrict any use of the information to criminally investigate or prosecute any alcohol or drug abuse patient.[facility] the event this information is protected by the Federal Confidentiality of Alcohol and Drug Abuse Patient Records regulations: The Federal rules restrict any use of the information to criminally investigate or prosecute any alcohol or drug abuse patient.[facility] the event this information is protected by the Federal Confidentiality of Alcohol and Drug Abuse Patient Records regulations: The Federal rules restrict any use of the information to criminally investigate or prosecute any alcohol or drug abuse patient.[facility] the event this information is protected by the Federal Confidentiality of Alcohol and Drug Abuse Patient Records regulations: The Federal rules restrict any use of the information to criminally investigate or prosecute any alcohol or drug abuse patient.[facility] the event this information is protected by the Federal Confidentiality of Alcohol and Drug Abuse Patient Records regulations: The Federal rules restrict any use of the information to criminally investigate or prosecute any alcohol or drug abuse patient.[facility] Center[facility] the event this information is protected by the Federal Confidentiality of Alcohol and Drug Abuse Patient Records regulations: The Federal rules restrict any use of the information to criminally investigate or prosecute any alcohol or drug abuse patient.[facility] the event this information is protected by the Federal Confidentiality of Alcohol and Drug Abuse Patient Records regulations: The Federal rules restrict any use of the information to criminally investigate or prosecute any alcohol or drug abuse patient.[facility] Center[facility] the event this information is protected by the Federal Confidentiality of Alcohol and Drug Abuse Patient Records regulations: The Federal rules restrict any use of the information to criminally investigate or prosecute any alcohol or drug abuse patient.[facility] Center[facility] the event this information is protected by the Federal Confidentiality of Alcohol and Drug Abuse Patient Records regulations: The Federal rules restrict any use of the information to criminally investigate or prosecute any alcohol or drug abuse patient.[facility] Center[facility] the event this information is protected by the Federal Confidentiality of Alcohol and Drug Abuse Patient Records regulations: The Federal rules restrict any use of the information to criminally investigate or prosecute any alcohol or drug abuse patient.[facility] CenterIn the event this information is protected by the Federal Confidentiality of Alcohol and Drug Abuse Patient Records regulations: The Federal rules restrict any use of the information to criminally investigate or prosecute any alcohol or drug abuse patient.[facility] CenterIn the event this information is protected by the Federal Confidentiality of Alcohol and Drug Abuse Patient Records regulations: The Federal rules restrict any use of the information to criminally investigate or prosecute any alcohol or drug abuse patient.[facility] CenterIn the event this information is protected by the Federal Confidentiality of Alcohol and Drug Abuse Patient Records regulations: The Federal rules restrict any use of the information to criminally investigate or prosecute any alcohol or drug abuse patient.[facility] CenterIn the event this information is protected by the Federal Confidentiality of Alcohol and Drug Abuse Patient Records regulations: The Federal rules restrict any use of the information to criminally investigate or prosecute any alcohol or drug abuse patient.[facility] CenterIn the event this information is protected by the Federal Confidentiality of Alcohol and Drug Abuse Patient Records regulations: The Federal rules restrict any use of the information to criminally investigate or prosecute any alcohol or drug abuse patient.[facility] CenterIn the event this information is protected by the Federal Confidentiality of Alcohol and Drug Abuse Patient Records regulations: The Federal rules restrict any use of the information to criminally investigate or prosecute any alcohol or drug abuse patient.[facility] CenterIn the event this information is protected by the Federal Confidentiality of Alcohol and Drug Abuse Patient Records regulations: The Federal rules restrict any use of the information to criminally investigate or prosecute any alcohol or drug abuse patient.[facility] CenterIn the event this information is protected by the Federal Confidentiality of Alcohol and Drug Abuse Patient Records regulations: The Federal rules restrict any use of the information to criminally investigate or prosecute any alcohol or drug abuse patient.[facility] CenterIn the event this information is protected by the Federal Confidentiality of Alcohol and Drug Abuse Patient Records regulations: The Federal rules restrict any use of the information to criminally investigate or prosecute any alcohol or drug abuse patient.[facility] CenterIn the event this information is protected by the Federal Confidentiality of Alcohol and Drug Abuse Patient Records regulations: The Federal rules restrict any use of the information to criminally investigate or prosecute any alcohol or drug abuse patient.[facility] CenterIn the event this information is protected by the Federal Confidentiality of Alcohol and Drug Abuse Patient Records regulations: The Federal rules restrict any use of the information to criminally investigate or prosecute any alcohol or drug abuse patient.[facility] CenterIn the event this information is protected by the Federal Confidentiality of Alcohol and Drug Abuse Patient Records regulations: The Federal rules restrict any use of the information to criminally investigate or prosecute any alcohol or drug abuse patient.[facility] CenterIn the event this information is protected by the Federal Confidentiality of Alcohol and Drug Abuse Patient Records regulations: The Federal rules restrict any use of the information to criminally investigate or prosecute any alcohol or drug abuse patient.[facility] CenterIn the event this information is protected by the Federal Confidentiality of Alcohol and Drug Abuse Patient Records regulations: The Federal rules restrict any use of the information to criminally investigate or prosecute any alcohol or drug abuse patient.[facility] CenterIn the event this information is protected by the Federal Confidentiality of Alcohol and Drug Abuse Patient Records regulations: The Federal rules restrict any use of the information to criminally investigate or prosecute any alcohol or drug abuse patient.[facility] CenterIn the event this information is protected by the Federal Confidentiality of Alcohol and Drug Abuse Patient Records regulations: The Federal rules restrict any use of the information to criminally investigate or prosecute any alcohol or drug abuse patient.[facility] CenterIn the event this information is protected by the Federal Confidentiality of Alcohol and Drug Abuse Patient Records regulations: The Federal rules restrict any use of the information to criminally investigate or prosecute any alcohol or drug abuse patient.[facility] CenterIn the event this information is protected by the Federal Confidentiality of Alcohol and Drug Abuse Patient Records regulations: The Federal rules restrict any use of the information to criminally investigate or prosecute any alcohol or drug abuse patient.[facility] CenterIn the event this information is protected by the Federal Confidentiality of Alcohol and Drug Abuse Patient Records regulations: The Federal rules restrict any use of the information to criminally investigate or prosecute any alcohol or drug abuse patient.[facility] CenterIn the event this information is protected by the Federal Confidentiality of Alcohol and Drug Abuse Patient Records regulations: The Federal rules restrict any use of the information to criminally investigate or prosecute any alcohol or drug abuse patient.[facility] CenterIn the event this information is protected by the Federal Confidentiality of Alcohol and Drug Abuse Patient Records regulations: The Federal rules restrict any use of the information to criminally investigate or prosecute any alcohol or drug abuse patient.[facility] CenterIn the event this information is protected by the Federal Confidentiality of Alcohol and Drug Abuse Patient Records regulations: The Federal rules restrict any use of the information to criminally investigate or prosecute any alcohol or drug abuse patient.[facility] CenterIn the event this information is protected by the Federal Confidentiality of Alcohol and Drug Abuse Patient Records regulations: The Federal rules restrict any use of the information to criminally investigate or prosecute any alcohol or drug abuse patient.[facility] CenterIn the event this information is protected by the Federal Confidentiality of Alcohol and Drug Abuse Patient Records regulations: The Federal rules restrict any use of the information to criminally investigate or prosecute any alcohol or drug abuse patient.[facility] CenterIn the event this information is protected by the Federal Confidentiality of Alcohol and Drug Abuse Patient Records regulations: The Federal rules restrict any use of the information to criminally investigate or prosecute any alcohol or drug abuse patient.[facility] CenterIn the event this information is protected by the Federal Confidentiality of Alcohol and Drug Abuse Patient Records regulations: The Federal rules restrict any use of the information to criminally investigate or prosecute any alcohol or drug abuse patient.[facility] CenterIn the event this information is protected by the Federal Confidentiality of Alcohol and Drug Abuse Patient Records regulations: The Federal rules restrict any use of the information to criminally investigate or prosecute any alcohol or drug abuse patient.[facility] CenterIn the event this information is protected by the Federal Confidentiality of Alcohol and Drug Abuse Patient Records regulations: The Federal rules restrict any use of the information to criminally investigate or prosecute any alcohol or drug abuse patient.[facility] CenterIn the event this information is protected by the Federal Confidentiality of Alcohol and Drug Abuse Patient Records regulations: The Federal rules restrict any use of the information to criminally investigate or prosecute any alcohol or drug abuse patient.[facility] CenterIn the event this information is protected by the Federal Confidentiality of Alcohol and Drug Abuse Patient Records regulations: The Federal rules restrict any use of the information to criminally investigate or prosecute any alcohol or drug abuse patient.[facility] CenterIn the event this information is protected by the Federal Confidentiality of Alcohol and Drug Abuse Patient Records regulations: The Federal rules restrict any use of the information to criminally investigate or prosecute any alcohol or drug abuse patient.[facility] CenterIn the event this information is protected by the Federal Confidentiality of Alcohol and Drug Abuse Patient Records regulations: The Federal rules restrict any use of the information to criminally investigate or prosecute any alcohol or drug abuse patient.[facility] CenterIn the event this information is protected by the Federal Confidentiality of Alcohol and Drug Abuse Patient Records regulations: The Federal rules restrict any use of the information to criminally investigate or prosecute any alcohol or drug abuse patient.[facility] CenterIn the event this information is protected by the Federal Confidentiality of Alcohol and Drug Abuse Patient Records regulations: The Federal rules restrict any use of the information to criminally investigate or prosecute any alcohol or drug abuse patient.[facility] CenterIn the event this information is protected by the Federal Confidentiality of Alcohol and Drug Abuse Patient Records regulations: The Federal rules restrict any use of the information to criminally investigate or prosecute any alcohol or drug abuse patient.[facility] CenterIn the event this information is protected by the Federal Confidentiality of Alcohol and Drug Abuse Patient Records regulations: The Federal rules restrict any use of the information to criminally investigate or prosecute any alcohol or drug abuse patient.[facility] CenterIn the event this information is protected by the Federal Confidentiality of Alcohol and Drug Abuse Patient Records regulations: The Federal rules restrict any use of the information to criminally investigate or prosecute any alcohol or drug abuse patient.[facility] CenterIn the event this information is protected by the Federal Confidentiality of Alcohol and Drug Abuse Patient Records regulations: The Federal rules restrict any use of the information to criminally investigate or prosecute any alcohol or drug abuse patient.[facility] CenterIn the event this information is protected by the Federal Confidentiality of Alcohol and Drug Abuse Patient Records regulations: The Federal rules restrict any use of the information to criminally investigate or prosecute any alcohol or drug abuse patient.[facility] CenterIn the event this information is protected by the Federal Confidentiality of Alcohol and Drug Abuse Patient Records regulations: The Federal rules restrict any use of the information to criminally investigate or prosecute any alcohol or drug abuse patient.[facility] CenterIn the event this information is protected by the Federal Confidentiality of Alcohol and Drug Abuse Patient Records regulations: The Federal rules restrict any use of the information to criminally investigate or prosecute any alcohol or drug abuse patient.[facility] CenterIn the event this information is protected by the Federal Confidentiality of Alcohol and Drug Abuse Patient Records regulations: The Federal rules restrict any use of the information to criminally investigate or prosecute any alcohol or drug abuse patient.[facility] CenterIn the event this information is protected by the Federal Confidentiality of Alcohol and Drug Abuse Patient Records regulations: The Federal rules restrict any use of the information to criminally investigate or prosecute any alcohol or drug abuse patient.[facility] CenterIn the event this information is protected by the Federal Confidentiality of Alcohol and Drug Abuse Patient Records regulations: The Federal rules restrict any use of the information to criminally investigate or prosecute any alcohol or drug abuse patient.[facility] CenterIn the event this information is protected by the Federal Confidentiality of Alcohol and Drug Abuse Patient Records regulations: The Federal rules restrict any use of the information to criminally investigate or prosecute any alcohol or drug abuse patient.[facility] CenterIn the event this information is protected by the Federal Confidentiality of Alcohol and Drug Abuse Patient Records regulations: The Federal rules restrict any use of the information to criminally investigate or prosecute any alcohol or drug abuse patient.[facility] CenterIn the event this information is protected by the Federal Confidentiality of Alcohol and Drug Abuse Patient Records regulations: The Federal rules restrict any use of the information to criminally investigate or prosecute any alcohol or drug abuse patient.[facility] CenterIn the event this information is protected by the Federal Confidentiality of Alcohol and Drug Abuse Patient Records regulations: The Federal rules restrict any use of the information to criminally investigate or prosecute any alcohol or drug abuse patient.[facility] CenterIn the event this information is protected by the Federal Confidentiality of Alcohol and Drug Abuse Patient Records regulations: The Federal rules restrict any use of the information to criminally investigate or prosecute any alcohol or drug abuse patient.[facility] CenterIn the event this information is protected by the Federal Confidentiality of Alcohol and Drug Abuse Patient Records regulations: The Federal rules restrict any use of the information to criminally investigate or prosecute any alcohol or drug abuse patient.[facility] CenterIn the event this information is protected by the Federal Confidentiality of Alcohol and Drug Abuse Patient Records regulations: The Federal rules restrict any use of the information to criminally investigate or prosecute any alcohol or drug abuse patient.[facility] CenterIn the event this information is protected by the Federal Confidentiality of Alcohol and Drug Abuse Patient Records regulations: The Federal rules restrict any use of the information to criminally investigate or prosecute any alcohol or drug abuse patient.[facility] CenterIn the event this information is protected by the Federal Confidentiality of Alcohol and Drug Abuse Patient Records regulations: The Federal rules restrict any use of the information to criminally investigate or prosecute any alcohol or drug abuse patient.[facility] CenterIn the event this information is protected by the Federal Confidentiality of Alcohol and Drug Abuse Patient Records regulations: The Federal rules restrict any use of the information to criminally investigate or prosecute any alcohol or drug abuse patient.[facility] CenterIn the event this information is protected by the Federal Confidentiality of Alcohol and Drug Abuse Patient Records regulations: The Federal rules restrict any use of the information to criminally investigate or prosecute any alcohol or drug abuse patient.[facility] CenterIn the event this information is protected by the Federal Confidentiality of Alcohol and Drug Abuse Patient Records regulations: The Federal rules restrict any use of the information to criminally investigate or prosecute any alcohol or drug abuse patient.[facility] CenterIn the event this information is protected by the Federal Confidentiality of Alcohol and Drug Abuse Patient Records regulations: The Federal rules restrict any use of the information to criminally investigate or prosecute any alcohol or drug abuse patient.[facility] CenterIn the event this information is protected by the Federal Confidentiality of Alcohol and Drug Abuse Patient Records regulations: The Federal rules restrict any use of the information to criminally investigate or prosecute any alcohol or drug abuse patient.[facility] CenterIn the event this information is protected by the Federal Confidentiality of Alcohol and Drug Abuse Patient Records regulations: The Federal rules restrict any use of the information to criminally investigate or prosecute any alcohol or drug abuse patient.[facility] CenterIn the event this information is protected by the Federal Confidentiality of Alcohol and Drug Abuse Patient Records regulations: The Federal rules restrict any use of the information to criminally investigate or prosecute any alcohol or drug abuse patient.[facility] CenterIn the event this information is protected by the Federal Confidentiality of Alcohol and Drug Abuse Patient Records regulations: The Federal rules restrict any use of the information to criminally investigate or prosecute any alcohol or drug abuse patient.[facility] CenterIn the event this information is protected by the Federal Confidentiality of Alcohol and Drug Abuse Patient Records regulations: The Federal rules restrict any use of the information to criminally investigate or prosecute any alcohol or drug abuse patient.[facility] CenterIn the event this information is protected by the Federal Confidentiality of Alcohol and Drug Abuse Patient Records regulations: The Federal rules restrict any use of the information to criminally investigate or prosecute any alcohol or drug abuse patient.[facility] CenterIn the event this information is protected by the Federal Confidentiality of Alcohol and Drug Abuse Patient Records regulations: The Federal rules restrict any use of the information to criminally investigate or prosecute any alcohol or drug abuse patient.[facility] CenterIn the event this information is protected by the Federal Confidentiality of Alcohol and Drug Abuse Patient Records regulations: The Federal rules restrict any use of the information to criminally investigate or prosecute any alcohol or drug abuse patient.[facility] Reason for Visit (unrecogniz ed section and content) Reason Comments PT Discharge Specialty Diagnoses / Procedures Referred By Contac t Referred To Contact [facility] Diagnoses Abnormality of gait due to impairment of balance Procedures CONSULT TO PHYSICAL THERAPY PHYSICAL THERAPY EVALUATION HIGH COMPLEX 45 MINS Jojo Kaur MD [address] [place] [address] [facility] [address] [place] [address] Referral ID Status Reason Start Date Expiration Date Visits Requested Visits Authorized [id number] Authorized PCP Requested Referral Auto-Generate d Referral [...] 6 mo Reason Comments Hospital Follow Up [facility] discharged Reason Comments Results Reason Comments Consult altered mental statu s Specialty Diagnoses / Procedures Referred By Contac t Referred To Contact Neurology Diagnoses Altered mental status, unspecified altered mental status type Procedures CONSULT TO NEUROLOGY OFFICE/OUTPATIENT [facility] MDM 60-74 MINUTES Abdulaziz Caldera MD [address] [place] [address] Referral ID Status Reason Start Date Expiration Date V isits Requested Visits Authorized [id number] Closed PCP Requested Referral 01/01/2022 01/01/2023 1 [...] Nursing Plan of Care Update Reason Comments [facility] PT POC Reason Comments OT plan of care Reason Onset Date Comments Refill Request 07/25/2022 Reason Comments Home Health-Nursing Update Reason Onset Date Comments Anticoagulation 07/31/2022 Specialty Diagnoses / Procedures Referred By Contcarlos t Referred To Contact Ent - Otolaryngology Diagnoses Chronic frontal sinusitis Procedures CONSULT TO ENT OFFICE/OUTPATIENT NEW HIGH MDM 60-74 MINUTES Abdulaziz Caldera MD [address] [place] [address] Referral ID Status Reason Start Date Expiration Date V isits Requested Visits Authorized [id number] Closed PCP Requested Referral 07/12/2022 07/12/2023 1 [...] Care Teams (unrecognized sec tion and content) Physical Chemistry Professor Relationship Specialty Start Date End Date Abdulaziz Caldera MD [address] [place], [place] [id number] PCP - General Family Practice 11/23/20 Physical Chemistry Professor Relationship Specialty Start Date End Date Abdulaziz Caldera MD [address] [place], [place] [id number] PCP - General Family Practice 11/23/20 Physical Chemistry Professor Relationship Specialty Start Date End Date Abdulaziz Caldera MD [address] [place], [place] [id number] PCP - General Family Practice 11/23/20 Physical Chemistry Professor Relationship Specialty Start Date End Date Abdulaziz Caldera MD [address] [facility] [place] [address] PCP - General Family Practice 11/23/20 Physical Chemistry Professor Relationship Specialty Start Date End Date Abdulaziz Caldera MD [address] [facility] [place] [address] PCP - General Family Practice 11/23/20 Physical Chemistry Professor Relationship Specialty Start Date End Date Abdulaziz Caldera MD [address] [facility] [place] [address] PCP - General Family Practice 11/23/20 Physical Chemistry Professor Relationship Specialty Start Date End Date Abdulaziz Caldera MD [address] [facility] [place] [address] PCP - General Family Practice 11/23/20 Physical Chemistry Professor Relationship Specialty Start Date End Date Abdulaziz Caldera MD [address] [facility] [place] [address] PCP - General Family Practice 11/23/20 Physical Chemistry Professor Relationship Specialty Start Date End Date Abdulaziz Caldera MD [address] [facility] [place] [address] PCP - General Family Practice 11/23/20 Physical Chemistry Professor Relationship Specialty Start Date End Date Abdulaziz Caldera MD [address] [facility] [place] [address] PCP - General Family Practice 11/23/20 Physical Chemistry Professor Relationship Specialty Start Date End Date Abdulaziz Caldera MD [address] [facility] [place] [address] PCP - General Family Practice 11/23/20 Physical Chemistry Professor Relationship Specialty Start Date End Date Abdulaziz Caldera MD [address] [facility] [place] [address] PCP - General Family Practice 11/23/20 Physical Chemistry Professor Relationship Specialty Start Date End Date Abdulaziz Caldera MD [address] [facility] [place] [address] PCP - General Family Practice 11/23/20 Physical Chemistry Professor Relationship Specialty Start Date End Date Abdulaziz Caldera MD [address] [facility] [place] [address] PCP - General Family Practice 11/23/20 Physical Chemistry Professor Relationship Specialty Start Date End Date Abdulaziz Caldera MD [address] [place] [address], [place] [address] PCP - General Family Practice 11/23/20 Physical Chemistry Professor Relationship Specialty Start Date End Date Abdulaziz Caldera MD [address] [place] [address], [place] [address] PCP - General Family Practice 11/23/20 Physical Chemistry Professor Relationship Specialty Start Date End Date Abdulaziz Caldera MD [facility] [place] [address] PCP - General Family Practice 11/23/20 Physical Chemistry Professor Relationship Specialty Start Date End Date Abdulaziz Caldera MD [facility] [place] [address] PCP - General Family Practice 11/23/20 Physical Chemistry Professor Relationship Specialty Start Date End Date Abdulaziz Caldera MD [facility] [place] [address] PCP - General Family Practice 11/23/20 Physical Chemistry Professor Relationship Specialty Start Date End Date Abdulaziz Caldera MD [facility] [place] [address] PCP - General Family Practice 11/23/20 Physical Chemistry Professor Relationship Specialty Start Date End Date Abdulaziz Caldera MD [address] [facility] [place] [address] PCP - General Family Practice 11/23/20 Physical Chemistry Professor Relationship Specialty Start Date End Date Abdulaziz Caldera MD [address] [facility] [place] [address] PCP - General Family Practice 11/23/20 Physical Chemistry Professor Relationship Specialty Start Date End Date Abdulaziz Caldera MD [address] [facility] [place] [place] [address] PCP - General Family Medicine 11/23/20 Physical Chemistry Professor Relationship Specialty Start Date End Date Abdulaziz Caldera MD [address] [facility] [place] [address] PCP - General Family Medicine 11/23/20 Physical Chemistry Professor Relationship Specialty Start Date End Date Abdulaziz Caldera MD [address] [facility] [place] [address] PCP - General Family Medicine 11/23/20 Physical Chemistry Professor Relationship Specialty Start Date End Date Abdulaziz Caldera MD [address] [facility] [place] [address] PCP - General Family Medicine 11/23/20 Physical Chemistry Professor Relationship Specialty Start Date End Date Abdulaziz Caldera MD [address] [facility] [place] [address] PCP - General Family Medicine 11/23/20 Physical Chemistry Professor Relationship Specialty Start Date End Date Abdulaziz Caldera MD [address] [facility] [place] [address] PCP - General Family Medicine 11/23/20 Physical Chemistry Professor Relationship Specialty Start Date End Date Abdulaziz Caldera MD [address] [facility] [place] [address] PCP - General Family Medicine 11/23/20 Physical Chemistry Professor Relationship Specialty Start Date End Date Abdulaziz Caldera MD [address] [facility] [place] [address] PCP - General Family Medicine 11/23/20 Physical Chemistry Professor Relationship Specialty Start Date End Date Abdulaziz Caldera MD [address] [facility] [place] [address] PCP - General Family Medicine 11/23/20 Physical Chemistry Professor Relationship Specialty Start Date End Date Abdulaziz Caldera MD [address] [facility] [place] [address] PCP - General Family Medicine 11/23/20 Physical Chemistry Professor Relationship Specialty Start Date End Date Abdulaziz Caldera MD [address] [facility] [place] [address] PCP - General Family Medicine 11/23/20 Physical Chemistry Professor Relationship Specialty Start Date End Date Abdulaziz Caldera MD [address] [facility] [place] [address] PCP - General Family Medicine 11/23/20 Physical Chemistry Professor Relationship Specialty Start Date End Date Abdulaziz Caldera MD [address] [facility] [place] [address] PCP - General Family Medicine 11/23/20 Physical Chemistry Professor Relationship Specialty Start Date End Date Abdulaziz Caldera MD [address] [facility] [place] [address] PCP - General Family Medicine 11/23/20 Physical Chemistry Professor Relationship Specialty Start Date End Date Abdulaziz Caldera MD [address] [facility] [place] [address] PCP - General Family Medicine 11/23/20 Physical Chemistry Professor Relationship Specialty Start Date End Date Abdulaziz Caldera MD [address] [facility] [place] [address] PCP - General Family Medicine 11/23/20 Physical Chemistry Professor Relationship Specialty Start Date End Date Abdulaziz Caldera MD [address] [facility] [place] [address] PCP - General Family Medicine 11/23/20 Physical Chemistry Professor Relationship Specialty Start Date End Date Abdulaziz Caldera MD [address] [facility] [place] [address] PCP - General Family Medicine 11/23/20 Physical Chemistry Professor Relationship Specialty Start Date End Date Abdulaziz Caldera MD [address] [facility] [place] [address] PCP - General Family Medicine 11/23/20 Team [...] MD Admit Provider, Attending Provi skip Active Physical Chemistry Professor Relationship Specialty Start Date End Date Abdulaziz Caldera MD [address] [place] [address] PCP - General Family Medicine 11/23/20 Team [...] MD Admit Provider, Attending Prov ider Active Physical Chemistry Professor Relationship Specialty Start Date End Date Abdulaziz Caldera MD [address] [place] [address] PCP - General Family Medicine 11/23/20 Team [...] Provider, Ref erring Provider Active Ann Rodríguez PHYSICAL GEOGRAPHER, PHYSICAL GEOGRAPHER-C Attending Provider Active Team Status: Active Member [...] section and content) DATE CREATED AUTHOR 01/02/2022 [facility] DATE CREATED AUTHOR AUTHOR'S ORGANIZ ATION 02/04/[address] [facility] DATE CREATED AUTHOR AUTHOR'S ORGANIZ ATION 04/19/2022 [facility] [place] [facility] DATE CREATED AUTHOR AUTHOR'S ORGANIZ ATION 11/07/2024 [facility] DATE CREATED AUTHOR AUTHOR'S ORGANIZ ATION 01/08/2025 [facility] FOR RECORDS PERTAINING TO PATIENTS [...] BE BASED ON THE PRIMARY CLINICAL RECORDS. Associated Content [facility]. provides no warranty or guarantee of the accuracy or completeness of information in this document.
--- OUTSIDE RECORDS SUMMARY | 2025-02-03 00:34 | XMS RPT_ITS | CCD ---
Author Organization [facility] Care Team Providers Care Director Emergency Name Role Phone Abdulaziz Caldera MD Primary [...] Dr. Luis Caldera Primary Care Provider [phone] Dr. Olga Lidia Rasheed Attending Provider Dr. Syed Allen Emergency Provider Dr. Karen Aly Admit Provider Dr. Karen Aly Other Provider Dr. Lizzeth Riggs Other Provider Dr. Yisel Rendon Attending Provider Justice, Dr. Morillo Other Provider Dr. Maggy Roberts Emergency Provider Dr. Luis Caldera Primary Care Provider [phone] Dr. Karen Aly Admit Provider Jermain, Dr. [...] Provider Dr. Júnior Chandra Referring Provider Dr. Lzizeth Riggs Other Provider Dr. Lizzeth Riggs Attending Provider Carolyn LOZA, PA Rebecca Damon Attending Provider Dr. Kraen Aly Referring Provider Dr. Syed Allen Emergency [...] Care Provider Dr. Syed Allen Emergency Provider [phone] Dr. Karen Aly Admit Provider Dr. Karen Aly Other Provider Dr. Yisel Rendon Attending Provider Dr. Yisel Rendon Other Provider Roxann, Dr. Hatfield Attending Provider Dr. Caryl Mcdermott Referring Provider Dr. Júnior Chandra Attending Provider Dr. Júnior Chandra Referring Provider Dr. Dandy Sauer Emergency Provider Dr. Luis Caldera Primary Care Provider [phone] Dr. Syed Allen Emergency Provider [phone] Dr. Karen Aly Admit Provider Dr. Karen Aly Other Provider Dr. Yisel Rendon Attending Provider Dr. Yisel Rendon Other Provider Dr. Olga Lidia Rasheed Other Provider Dr. Luis Caldera Primary Care Provider [phone] Dr. Luis Caldera Referring Provider Debi Wetzel Attending Provider Unavailable Marcos PROCESS ENVIRONMENTAL TECHNICIAN, GURPREETC Ann Attending Provider Dr. Luis Caldera Primary Care Provider [phone] Dr. Luis Caldera Referring Provider Dr. Olga [...] Unavailable Deperro OLS, Walter Attending Unavailable Bursley, Lius Primary Care Unavailable Deperro OLS, Walter Attending [...] (20 sources) pantoprazole Drug Allergy 09-24-2019 Diarrhea [facility] (20 sources) Propofol Drug Allergy 12-06-2021 Other [facility] Comment on above: GETS AGGRESSIVE (1 source) Propofol Drug Allergy 10-12-2024 [facility] Repository Medications Current Medications Medication Drug [...] Comment on above: TAKE 1 TABLET BY [facility] ONCE DAILY. FOR CHOLESTEROL. bisacodyl 10 [...] Take [address] [facility] one time a week. docusate sodium 50 mg / sennosides, shelter 8.6 mg oral tablet (12 sources) Start: 01-26-2023 Start: 01-26-2023 take [address] [facility] twice daily Sennosides-Docusate Sodium (Stool Softener-Stimulant Laxat) [...] hydrochloride 10 mg oral tablet (20 sources) N-wlhggv-S-aspartate Receptor Antagonist Start: 02-13-2023 take 1 tablet [...] Take [address] [facility] daily at bedtime. 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, [address] Hematocrit (Bld) [Volume fraction] 37.9 % Low 40-54 [facility] Comment on above: Order Comment: 215.2 Performed By: #### L [id number] #### [facility] [address] [place], [address] Hemoglobin (Bld) [Mass/Vol] 12.4 g/dL Low 13.0-16. 5 [facility] Comment on above: Order Comment: 215.2 Performed By: #### L [id number] #### [facility] [address] [place], [address] MCH (RBC) [Entitic mass] 28.0 pg Normal 27.0-32.0 [facility] Comment on above: Order Comment: 215.2 Performed By: #### L [id number] #### [facility] [address] [place], [address] MCHC (RBC) [Mass/Vol] 32.7 g/dL Normal 32-36 [facility] Comment on above: Order Comment: 215.2 Performed By: #### L [id number] #### [facility] [address] [place], [address] MCV (RBC) [Entitic vol] 85.6 fL Normal 80-[address] [facility] Comment on above: Order Comment: 215.2 Performed By: #### L [id number] #### [facility] [address] [place], [address] Platelet mean volume (Bld) [Entitic vol] 9.5 fL Normal 6.2-12.0 [facility] Comment on above: Order Comment: 215.2 Performed By: #### L [id number] #### [facility] [address] [place], [address] Platelets (Bld) [#/Vol] 214 10*3/uL Normal 150-450 [facility] Comment on above: Order Comment: 215.2 Performed By: #### L [id number] #### [facility] [address] [place], [address] RBC (Bld) [#/Vol] 4.43 10*6/uL Low 4.6-6.2 [facility] Comment on above: Order Comment: 215.2 Performed By: #### L [id number] #### [facility] [address] [place], [address] RDW SD 41.9 fl Normal 35.1-43.9 [facility] Comment on above: Order Comment: 215.2 Performed By: #### L [id number] #### [facility] [address] [place], [address] WBC (Bld) [#/Vol] 9.4 10*3/uL Normal 4.4-11.0 [facility] Comment on above: Order Comment: 215.2 Performed By: #### L [id number] #### [facility] [address] [place], [address] Comprehensive Metabolic Prof [facility] 12-22-2024 Albumin [Mass/Vol] 3.6 g/dL Normal 3.4-4.8 [facility] Comment on above: Order Comment: 215.2 Performed By: #### L [id number] #### [facility] [address] [place], [address] Albumin/Globulin [Mass ratio] 1.7 {ratio} Normal 0.9-2.4 [facility] Comment on above: Order Comment: 215.2 Performed By: #### L [id number] #### [facility] [address] [place], [address] ALK PHOS 104 U/L Normal 40-129 [facility] Comment on above: Order Comment: 215.2 Performed By: #### L [id number] #### [facility] [address] [place], [address] ALT [Catalytic activity/Vol] 13 U/L Normal <=46 [facility] Comment on above: Order Comment: 215.2 Performed By: #### L [id number] #### [facility] [address] [place], [address] AST [Catalytic activity/Vol] 14 U/L Normal <=37 [facility] Comment on above: Order Comment: 215.2 Performed By: #### L [id number] #### [facility] [address] [place], [address] Bilirubin [Mass/Vol] 0.43 mg/dL Normal 0.00-1.30 [facility] Comment on above: Order Comment: 215.2 Performed By: #### L [id number] #### [facility] [address] [place], [address] BUN/CRE 19.8 RATIO Normal 10-20 [facility] Comment on above: Order Comment: 215.2 Performed By: #### L [id number] #### [facility] [address] [place], [address] Calcium [Mass/Vol] 9.5 mg/dL Normal 7.6-11.0 [facility] Comment on above: Order Comment: 215.2 Performed By: #### L [id number] #### [facility] [address] [place], [address] Chloride [Moles/Vol] 103 mmol/L Normal 98-108 [facility] Comment on above: Order Comment: 215.2 Performed By: #### L [id number] #### [facility] [address] [place], [address] CO2 [Moles/Vol] 26.7 mmol/L Normal 21.0-32.0 [facility] Comment on above: Order Comment: 215.2 Performed By: #### L [id number] #### [facility] [address] [place], [address] Creatinine [Mass/Vol] 1.04 mg/dL Normal 0.70-1.20 [facility] Comment on above: Order Comment: 215.2 Performed By: #### L [id number] #### [facility] [address] [place], [address] GAP 10 Normal 5-15 [facility] Comment on above: Order Comment: 215.2 Performed By: #### L [id number] #### [facility] [address] [place], [address] GFR/1.73 sq M.predicted among non-blacks MDRD (S/P/Bld) [Vol rate/Area] 74 mL/min/{1.73_m2} Normal >60 [facility] Comment on above: Order Comment: 215.2 Result Comment: mL/m in/1.73m2 CKD-EPI Creatinine Equation (2020) Performed By: #### L [id number] #### [facility] [address] [place], [address] Globulin (S) [Mass/Vol] 2.2 g/dL Normal 2.2-4.[address] [facility] Comment on above: Order Comment: 215.2 Performed By: #### L [id number] #### [facility] [address] [place], [address] Glucose [Mass/Vol] 131 mg/dL High 70-99 [facility] Comment on above: Order Comment: 215.2 Performed By: #### L [id number] #### [facility] [address] [place], [address] Potassium [Moles/Vol] 4.2 mmol/L Normal 3.3-5.1 [facility] Comment on above: Order Comment: 215.2 Performed By: #### L [id number] #### [facility] [address] [place], [address] Sodium [Moles/Vol] 141 mmol/L Normal 133-145 [facility] Comment on above: Order Comment: 215.2 Performed By: #### L [id number] #### [facility] [address] [place], [address] T PROT 5.8 g/dL Low 5.9-8.4 [facility] Comment on above: Order Comment: 215.2 Performed By: #### L [id number] #### [facility] [address] [place], [address] Urea nitrogen [Mass/Vol] 21 mg/dL High 4-19 [facility] Comment on above: Order Comment: 215.2 Performed By: #### L [id number] #### [facility] [address] [place], [address] Hemoglobin A1con 12-22-2024 HbA1c (Bld) [Mass fraction] 7.0 % High <=5.6 [facility] Comment on above: Order Comment: 215.2 Result Comment: Norm al < 5.7 % Prediabetic 5.7 - 6.4 % Diabetic >or= 6.5 % Please note range changes. Performed By: #### L [id number] #### [facility] [address] [place], [place], [address] Vitamin D,25 Hydroxyon 12-16 Vitamin D 25-OH 31.8 ng/mL Normal 30-100 [facility] Comment on above: Order Comment: 215.2 Result Comment: Laure min D Status Deficiency: <20 ng/mL (50nmol/L) Insufficiency: 20-30 ng/mL (50-75 nmol/L) Sufficiency: 30-100 ng/mL (75-250 nmol/L) Toxicity: >100 ng/mL (>250 nmol/L) Performed By: #### L [id number] #### [facility] [address] [place], [place], [address] Urine Cultureon 11-25-2024 [facility] Culture exhibits no growth. Normal [facility] Comment on above: Performed By: #### L 500.4050, L501.9985, L100.0500 #### [facility] [address] [place], [place], [address] CBC-Complete Blood Cnt No Di ffon 11-24-2024 Erythrocyte distribution width (RBC) [Ratio] 13.4 % Normal 11.6-14.6 [facility] Comment on above: Order Comment: 215.2 Performed By: #### L [id number] #### [facility] [address] [place], [place], [address] Hematocrit (Bld) [Volume fraction] 38.0 % Low 40-54 [facility] Comment on above: Order Comment: 215.2 Performed By: #### L [id number] #### [facility] [address] [place], [address] Hemoglobin (Bld) [Mass/Vol] 12.1 g/dL Low 13.0-16. 5 [facility] Comment on above: Order Comment: 215.2 Performed By: #### L [id number] #### [facility] [address] [place], [address] MCH (RBC) [Entitic mass] 27.6 pg Normal 27.0-32.0 [facility] Comment on above: Order Comment: 215.2 Performed By: #### L [id number] #### [facility] [address] [place], [address] MCHC (RBC) [Mass/Vol] 31.8 g/dL Low 32-36 [facility] Comment on above: Order Comment: 215.2 Performed By: #### L [id number] #### [facility] [address] [place], [address] MCV (RBC) [Entitic vol] 86.6 fL Normal 80-[address] [facility] Comment on above: Order Comment: 215.2 Performed By: #### L [id number] #### [facility] [address] [place], [address] Platelet mean volume (Bld) [Entitic vol] 9.4 fL Normal 6.2-12.0 [facility] Comment on above: Order Comment: 215.2 Performed By: #### L [id number] #### [facility] [address] [place], [address] Platelets (Bld) [#/Vol] 200 10*3/uL Normal 150-450 [facility] Comment on above: Order Comment: 215.2 Performed By: #### L [id number] #### [facility] [address] [place], [address] RBC (Bld) [#/Vol] 4.39 10*6/uL Low 4.6-6.2 [facility] Comment on above: Order Comment: 215.2 Performed By: #### L [id number] #### [facility] [address] [place], [address] RDW SD 41.4 fl Normal 35.1-43.9 [facility] Comment on above: Order Comment: 215.2 Performed By: #### L [id number] #### [facility] [address] [place], [address] WBC (Bld) [#/Vol] 8.9 10*3/uL Normal 4.4-11.0 [facility] Comment on above: Order Comment: 215.2 Performed By: #### L [id number] #### [facility] [address] [place], [address] Comprehensive Metabolic Prof scon 11-24-2024 Albumin [Mass/Vol] 3.3 g/dL Low 3.4-4.8 [facility] Comment on above: Order Comment: 215.2 Performed By: #### L 500.4050, L501.9985, L100.0500 #### [facility] [address] [place], [address] Albumin/Globulin [Mass ratio] 1.6 {ratio} Normal 0.9-2.4 [facility] Comment on above: Order Comment: 215.2 Performed By: #### L 500.4050, L501.9985, L100.0500 #### [facility] [address] [place], [address] ALK PHOS 101 U/L Normal 40-129 [facility] Comment on above: Order Comment: 215.2 Performed By: #### L 500.4050, L501.9985, L100.0500 #### [facility] [address] [place], [address] ALT [Catalytic activity/Vol] 14 U/L Normal <=46 [facility] Comment on above: Order Comment: 215.2 Performed By: #### L 500.4050, L501.9985, L100.0500 #### [facility] [address] [place], [address] AST [Catalytic activity/Vol] 16 U/L Normal <=37 [facility] Comment on above: Order Comment: 215.2 Performed By: #### L 500.4050, L501.9985, L100.0500 #### [facility] [address] [place], [address] Bilirubin [Mass/Vol] 0.34 mg/dL Normal 0.00-1.30 [facility] Comment on above: Order Comment: 215.2 Performed By: #### L 500.4050, L501.9985, L100.0500 #### [facility] [address] [place], [address] BUN/CRE 19.5 RATIO Normal 10-20 [facility] Comment on above: Order Comment: 215.2 Performed By: #### L 500.4050, L501.9985, L100.0500 #### [facility] [address] [place], [address] Calcium [Mass/Vol] 8.9 mg/dL Normal 7.6-11.0 [facility] Comment on above: Order Comment: 215.2 Performed By: #### L 500.4050, L501.9985, L100.0500 #### [facility] [address] [place], [address] Chloride [Moles/Vol] 105 mmol/L Normal 98-108 [facility] Comment on above: Order Comment: 215.2 Performed By: #### L 500.4050, L501.9985, L100.0500 #### [facility] [address] [place], [address] CO2 [Moles/Vol] 21.7 mmol/L Normal 21.0-32.0 [facility] Comment on above: Order Comment: 215.2 Performed By: #### L 500.4050, L501.9985, L100.0500 #### [facility] [address] [place], [address] Creatinine [Mass/Vol] 1.15 mg/dL Normal 0.70-1.20 [facility] Comment on above: Order Comment: 215.2 Performed By: #### L 500.4050, [id number], L100.0500 #### [facility] [address] [place], [address] GAP 14 Normal 5-15 [facility] Comment on above: Order Comment: 215.2 Performed By: #### L 500.4050, L501.9985, L100.0500 #### [facility] [address] [place], [address] GFR/1.73 sq M.predicted among non-blacks MDRD (S/P/Bld) [Vol rate/Area] 66 mL/min/{1.73_m2} Normal >60 [facility] Comment on above: Order Comment: 215.2 Result Comment: mL/m in/1.73m2 CKD-EPI Creatinine Equation (2020) Performed By: #### L 500.4050, L501.9985, L100.0500 #### [facility] [address] [place], [address] Globulin (S) [Mass/Vol] 2.0 g/dL Low 2.2-4.2 [facility] Comment on above: Order Comment: 215.2 Performed By: #### L 500.4050, L501.9985, L100.0500 #### [facility] [address] [place], [address] Glucose [Mass/Vol] 139 mg/dL High 70-99 [facility] Comment on above: Order Comment: 215.2 Performed By: #### L 500.4050, L501.9985, L100.0500 #### [facility] [address] [place], [address] Potassium [Moles/Vol] 4.2 mmol/L Normal 3.3-5.1 [facility] Comment on above: Order Comment: 215.2 Performed By: #### L 500.4050, L501.9985, L100.0500 #### [facility] [address] [place], [address] Sodium [Moles/Vol] 141 mmol/L Normal 133-145 [facility] Comment on above: Order Comment: 215.2 Performed By: #### L 500.4050, L501.9985, L100.0500 #### [facility] [address] [place], [address] T PROT 5.3 g/dL Low 5.9-8.4 [facility] Comment on above: Order Comment: 215.2 Performed By: #### L 500.4050, L501.9985, L100.0500 #### [facility] [address] [place], [address] Urea nitrogen [Mass/Vol] 22 mg/dL High 4-19 [facility] Comment on above: Order Comment: 215.2 Performed By: #### L 500.4050, L501.9985, L100.0500 #### [facility] [address] [place], [address] Urinalysis, Completeon 11-24 WBC 0-5 SEEN Normal 0-5 [facility] Comment on above: Order Comment: LEILA TER SPECIMEN Performed By: #### L [id number] #### [facility] [address] [place], [address] BACTERIA 0 SEEN Normal None Seen [facility] Comment on above: Order Comment: LEILA TER SPECIMEN Performed By: #### L [id number] #### [facility] [address] [place], [address] EPI,SQUAMOUS 0 SEEN Normal 0-5 [facility] Comment on above: Order Comment: LEILA TER SPECIMEN Performed By: #### L [id number] #### [facility] [address] [place], [address] Mucus Ql (Urine sed) 0 SEEN Normal [facility] Comment on above: Order Comment: LEILA TER SPECIMEN Performed By: #### L [id number] #### [facility] [address] [place], [address] RBC 0 SEEN Normal 0-5 [facility] Comment on above: Order Comment: LEILA TER SPECIMEN Performed By: #### L [id number] #### [facility] [address] [place], [place], [address] CNPNon 11-06-2024 [facility] Telephone (4CQ) RICHARD ROY ([id number]) 1945 M Date Time Provider Department 11/06/24 ABDULAZIZ CALDERA 4CQ During your visit today, we recorded the following information about you: Ann Raymond 11/06/2024 10:55 AM Signed Spoke with spouse as patient is over due for visit with PCP , stated patient is at [facility] in [place]. We did not remove PCP. Abdulaziz Caldera [...] time a week. - blood sugar diagnostic (PhotoSolarTOUCH ULTRA TEST) test strip Test blood sugar(s) [...] (HCC) [I48.0] 12/03/2022 Encounter Status:Closed by AMADA CHON on 11/06/24 Normal [facility] Cardiology Visit Reporton Cardiology Visit Report [facility] [address] [place], [place] [address] OFFICE VISIT Date of Service: 10/12/24 MR#: [id number] Acct: [id number] Name: RICHARD ROY Rep #: [id number] : 1945 Provider: Dr. Olga Lidia Rasheed MD Age/Sex: 79/M [place] 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 Normal [facility] Calculated very low density lipoprotein (VLDL) cholesterol measurementOrdered By: Walter Becker on 10-05-2024 VLDL Cholesterol 41 mg/dL High 5-40 [facility] LDL calc ser/plasOrdered By: Walter Becker on 10-05-2024 LDL Cholesterol, Calculated 31 mg/dL [facility] Comment on above: Fqrlfbbqlm=133-350 m g/dL & Higher Dluv=004 mg/dL or greater Lipid Profileon 10-05-2024 CHOL:HDL 3.37 Normal [facility] Comment on above: Order Comment: 215.2 Performed By: #### L 500.4050, L501.9985, L100.0500 #### [facility] [address] [place], [address] Cholesterol [Mass/Vol] 103 mg/dL Normal <=200 [facility] Comment on above: Order Comment: 215.2 Result Comment: Chol esterol level, Desirable <200 mg/dL Borderline high cholesterol 200-239 mg/dL High cholesterol >=240 mg/dL Recommendations of the NCEP Adult Treatment Panel for the following risk-cutoff thresholds for the [place] population. Performed By: #### L 500.4050, L501.9985, L100.0500 #### [facility] [address] [place], [address] Cholesterol in HDL [Mass/Vol] 31 mg/dL Low [facility] Comment on above: Order Comment: 215.2 Result Comment: Stephanie onal Cholesterol Education Program (NCEP) guidelines: <40 mg/dL: Low HDL-cholesterol (major risk factor for CHD) >= 60 mg/dL: High HDL-cholesterol (negative risk factor for CHD) HDL-cholesterol is affected by a number of factors, e.g. smoking, exercise, hormones, sex and age. Performed By: #### L 500.4050, L501.9985, L100.0500 #### [facility] [address] [place], [address] Cholesterol in LDL [Mass/Vol] 31 mg/dL Normal [facility] Comment on above: Order Comment: 215.2 Result Comment: Bord ovycqb=860-481 mg/dL Higher Kcqm=637 mg/dL or greater Performed By: #### L 500.4050, L501.9985, L100.0500 #### [facility] [address] [place], [address] Cholesterol in VLDL [Mass/Vol] 41 mg/dL High 5-40 [facility] Comment on above: Order Comment: 215.2 Performed By: #### L 500.4050, [id number], L100.0500 #### [facility] [address] [place], [address] Triglyceride [Mass/Vol] 207 mg/dL High [facility] Comment on above: Order Comment: 215.2 Result Comment: The drugs N-Acetylcysteine and Metamizole may falsely depress this assay. Normal range: <150 mg/dL Borderline High: 150-199 mg/dL High: 200-499 mg/dL Very High: >500 mg/dL Performed By: #### L 500.4050, L501.9985, L100.0500 #### [facility] [place], [address] Screening total cholesterol/ high density lipoprotein (HDL) cholesterol ratioOrdered By: Walter Becker on 10-05-2024 Cholesterol.total/Cholester ol in HDL [Mass ratio] 3.37 {ratio} [facility] Serum or plasma cholesterol in HDL measurement (mass/volume)Ordered By: Walter Becker on 10-05-2024 Cholesterol in HDL [Mass/Vol] 31 mg/dL Low >40 [facility] Comment on above: National Cholesterol Education Program (NCEP) guidelines:<40 mg/dL: Low HDL-cholesterol (major risk factor for CHD)>= 60 mg/dL: High HDL-cholesterol (negative risk factor for CHD)HDL-cholesterol is affected by a number of factors, e.g. smoking, exercise, hormones, sex and age. Serum or plasma cholesterol measurement (mass/volume)Ordered By: Walter Becker on 10-05-2024 Cholesterol [Mass/Vol] 103 mg/dL <201 [facility] Comment on above: Cholesterol level, D esirable <200 mg/dLBorderline high cholesterol 200-239 mg/dLHigh cholesterol >=240 mg/dLRecommendations of the NCEP Adult Treatment Panel for the following risk-cutoff thresholds for the [place] population. Triglycerides measurementOrd ered By: Walter Becker on 10-05-2024 Triglyceride [Mass/Vol] 207 mg/dL High <[address] [facility] Comment on above: The drugs N-Acetylcy steine and Metamizole may falsely depress this assay. Normal range: <150 mg/dLBorderline High: 150-199 mg/dLHigh: 200-499 mg/dLVery High: >500 mg/dL Anion gap in Serum or Plasma Ordered By: Walter Becker on 09-29-2024 Anion gap [Moles/Vol] 11 mmol/L 5-15 [facility] BUN/creatinine ratioOrdered By: Walter Becker on 09-29-2024 Urea nitrogen/Creatinine [Mass ratio] 20.5 mg/mg High 10-20 [facility] Bilirubin, totalOrdered By: Walter Becker on 09-29-2024 Bilirubin [Mass/Vol] 0.31 mg/dL 0.00-1.30 [facility] CBC-Complete Blood Cnt No Di ffon 09-29-2024 Erythrocyte distribution width (RBC) [Ratio] 13.7 % Normal 11.6-14.6 [facility] Comment on above: Order Comment: 215.2 Performed By: #### L 500.4050, L501.9985, L100.0500 #### [facility] [address] [place], [address] Hematocrit (Bld) [Volume fraction] 37.0 % Low 40-54 [facility] Comment on above: Order Comment: 215.2 Performed By: #### L 500.4050, [id number], L100.0500 #### [facility] [address] [place], [address] Hemoglobin (Bld) [Mass/Vol] 11.8 g/dL Low 13.0-16. 5 [facility] Comment on above: Order Comment: 215.2 Performed By: #### L 500.4050, [id number], L100.0500 #### [facility] [address] [place], [address] MCH (RBC) [Entitic mass] 27.9 pg Normal 27.0-32.0 [facility] Comment on above: Order Comment: 215.2 Performed By: #### L 500.4050, [id number], L100.0500 #### [facility] [address] [place], [address] MCHC (RBC) [Mass/Vol] 31.9 g/dL Low 32-36 [facility] Comment on above: Order Comment: 215.2 Performed By: #### L 500.4050, [id number], L100.0500 #### [facility] [address] [place], [address] MCV (RBC) [Entitic vol] 87.5 fL Normal 80-[address] [facility] Comment on above: Order Comment: 215.2 Performed By: #### L 500.4050, [id number], L100.0500 #### [facility] [address] [place], [address] Platelet mean volume (Bld) [Entitic vol] 9.6 fL Normal 6.2-12.0 [facility] Comment on above: Order Comment: 215.2 Performed By: #### L 500.4050, [id number], L100.0500 #### [facility] [address] [place], [address] Platelets (Bld) [#/Vol] 226 10*3/uL Normal 150-450 [facility] Comment on above: Order Comment: 215.2 Performed By: #### L 500.4050, [id number], L100.0500 #### [facility] [address] [place], [address] RBC (Bld) [#/Vol] 4.23 10*6/uL Low 4.6-6.2 [facility] Comment on above: Order Comment: 215.2 Performed By: #### L 500.4050, [id number], L100.0500 #### [facility] [address] [place], [address] RDW SD 43.7 fl Normal 35.1-43.9 [facility] Comment on above: Order Comment: 215.2 Performed By: #### L 500.4050, [id number], L100.0500 #### [facility] [address] [place], [address] WBC (Bld) [#/Vol] 8.9 10*3/uL Normal 4.4-11.0 [facility] Comment on above: Order Comment: 215.2 Performed By: #### L 500.4050, [id number], L100.0500 #### [facility] [address] [place], [address] Carbon dioxide, total [Moles /volume] in Central venous bloodOrdered By: Walter Becker on 09-29-2024 CO2 [Moles/Vol] 25.6 mmol/L 21.0-32.0 [facility] Chloride assayOrdered By: Horner on 09-29-2024 Chloride [Moles/Vol] 104 mmol/L 98-108 [facility] Comprehensive Metabolic Prof ilon 09-29-2024 Albumin [Mass/Vol] 3.6 g/dL Normal 3.4-4.8 [facility] Comment on above: Order Comment: 215.2 Performed By: #### L 500.4050, [id number], L100.0500 #### [facility] [address] [place], [address] Albumin/Globulin [Mass ratio] 1.8 {ratio} Normal 0.9-2.4 [facility] Comment on above: Order Comment: 215.2 Performed By: #### L 500.4050, [id number], L100.0500 #### [facility] [address] [place], [address] ALK PHOS 101 U/L Normal 40-129 [facility] Comment on above: Order Comment: 215.2 Performed By: #### L 500.4050, [id number], L100.0500 #### [facility] [address] [place], [address] ALT [Catalytic activity/Vol] 19 U/L Normal <=46 [facility] Comment on above: Order Comment: 215.2 Performed By: #### L 500.4050, [id number], L100.0500 #### [facility] [address] [place], [address] AST [Catalytic activity/Vol] 15 U/L Normal <=37 [facility] Comment on above: Order Comment: 215.2 Performed By: #### L 500.4050, [id number], L100.0500 #### [facility] [address] [place], [address] Bilirubin [Mass/Vol] 0.31 mg/dL Normal 0.00-1.30 [facility] Comment on above: Order Comment: 215.2 Performed By: #### L 500.4050, [id number], L100.0500 #### [facility] [address] [place], [address] BUN/CRE 20.5 RATIO High 10-20 [facility] Comment on above: Order Comment: 215.2 Performed By: #### L 500.4050, [id number], L100.0500 #### [facility] [address] [place], [address] Calcium [Mass/Vol] 9.2 mg/dL Normal 7.6-11.0 [facility] Comment on above: Order Comment: 215.2 Performed By: #### L 500.4050, [id number], L100.0500 #### [facility] [address] [place], [address] Chloride [Moles/Vol] 104 mmol/L Normal 98-108 [facility] Comment on above: Order Comment: 215.2 Performed By: #### L 500.4050, [id number], L100.0500 #### [facility] [address] [place], [address] CO2 [Moles/Vol] 25.6 mmol/L Normal 21.0-32.0 [facility] Comment on above: Order Comment: 215.2 Performed By: #### L 500.4050, [id number], L100.0500 #### [facility] [address] [place], [address] Creatinine [Mass/Vol] 1.10 mg/dL Normal 0.70-1.20 [facility] Comment on above: Order Comment: 215.2 Performed By: #### L 500.4050, [id number], L100.0500 #### [facility] [address] [place], [address] GAP 11 Normal 5-15 [facility] Comment on above: Order Comment: 215.2 Performed By: #### L 500.4050, [id number], L100.0500 #### [facility] [address] [place], [address] GFR/1.73 sq M.predicted among non-blacks MDRD (S/P/Bld) [Vol rate/Area] 70 mL/min/{1.73_m2} Normal >60 [facility] Comment on above: Order Comment: 215.2 Result Comment: mL/m in/1.73m2 CKD-EPI Creatinine Equation (2020) Performed By: #### L 500.4050, [id number], L100.0500 #### [facility] [address] [place], [address] Globulin (S) [Mass/Vol] 2.0 g/dL Low 2.2-4.2 [facility] Comment on above: Order Comment: 215.2 Performed By: #### L 500.4050, [id number], L100.0500 #### [facility] [address] [place], [address] Glucose [Mass/Vol] 155 mg/dL High 70-99 [facility] Comment on above: Order Comment: 215.2 Performed By: #### L 500.4050, [id number], L100.0500 #### [facility] [address] [place], [address] Potassium [Moles/Vol] 4.2 mmol/L Normal 3.3-5.1 [facility] Comment on above: Order Comment: 215.2 Performed By: #### L 500.4050, [id number], L100.0500 #### [facility] [address] [place], [address] Sodium [Moles/Vol] 141 mmol/L Normal 133-145 [facility] Comment on above: Order Comment: 215.2 Performed By: #### L 500.4050, [id number], L100.0500 #### [facility] [address] [place], [address] T PROT 5.6 g/dL Low 5.9-8.4 [facility] Comment on above: Order Comment: 215.2 Performed By: #### L 500.4050, [id number], L100.0500 #### [facility] [address] [place], [address] Urea nitrogen [Mass/Vol] 23 mg/dL High 4-19 [facility] Comment on above: Order Comment: 215.2 Performed By: #### L 500.4050, [id number], L100.0500 #### [facility] [address] [place], [address] Erythrocyte distribution wid th (RBC) [Ratio]Ordered By: Walter Becker on 09-29-2024 Erythrocyte distribution width (RBC) [Entitic vol] 43.7 fL 35.1-43.9 [facility] Erythrocyte distribution wid th ratioOrdered By: Walter Becker on 09-29-2024 Erythrocyte distribution width (RBC) [Ratio] 13.7 % 11.6-14.6 [facility] GFR/1.73 sq M.predicted kimberly g non-blacks MDRD (S/P/Bld) [Vol rate/Area]Ordered By: Walter Becker on 09-29-2024 Estimated GFR (MDRD) Non-Af Amer 70 >60 [facility] Comment on above: mL/min/1.73m2 CKD-EP I Creatinine Equation (2020) Hematocrit Auto (Bld) [Volum e fraction]Ordered By: Walter Becker on 09-29-2024 Hematocrit (Bld) [Volume fraction] 37.0 % Low 40-54 [facility] Hemoglobin A1con 09-29-2024 HbA1c (Bld) [Mass fraction] 6.6 % Normal <=5.6 [facility] Comment on above: Order Comment: 215.2 Performed By: #### L 500.4050, L501.9985, L100.0500 #### [facility] [address] [place], [place], [address] Hemoglobin A1c percentageOrd ered By: Walter Becker on 09-29-2024 HbA1c (Bld) [Mass fraction] 6.6 % >5.7 [facility] Hemoglobin measurementOrdere d By: Walter Becker on 09-29-2024 Hemoglobin (Bld) [Mass/Vol] 11.8 g/dL Low 13.0-16. 5 [facility] - Chemistry and C hemistry - challengeOrdered By: Walter Becker on 09-29-2024 AST [Catalytic activity/Vol] 15 U/L <38 [facility] MCV (mean corpuscular volume ) determinationOrdered By: Walter Becker on 09-29-2024 MCV (RBC) [Entitic vol] 87.5 fL 80-[address] [facility] Mean corpuscular hemoglobin (MCH) determinationOrdered By: Walter Becker on 09-29-2024 MCH (RBC) [Entitic mass] 27.9 pg 27.0-32.0 [facility] Mean corpuscular hemoglobin concentration (MCHC) determinationOrdered By: Walter Becker on 09-29-2024 MCHC (RBC) [Mass/Vol] 31.9 g/dL Low 32-36 [facility] Mean platelet volume determi nationOrdered By: Walter Becker on 09-29-2024 Platelet mean volume (Bld) [Entitic vol] 9.6 fL 6.2-12.0 [facility] Platelet countOrdered By: Horner on 09-29-2024 Platelets (Bld) [#/Vol] 226 10*3/uL 150-450 [facility] Potassium (Unsp spec) [Mass/ Vol]Ordered By: Walter Becker on 09-29-2024 Potassium [Moles/Vol] 4.2 mmol/L 3.3-5.1 [facility] RBC Auto (Bld) [#/Vol]Ordere d By: Walter Becker on 09-29-2024 RBC (Bld) [#/Vol] 4.23 10*6/uL Low 4.6-6.2 [facility] Serum creatinine measurement (mass/volume)Ordered By: Walter Becker on 09-29-2024 Creatinine [Mass/Vol] 1.10 mg/dL 0.70-1.20 [facility] Serum globulin measurementOr dered By: Walter Becker on 09-29-2024 Globulin (S) [Mass/Vol] 2.0 g/dL Low 2.2-4.[address] [facility] Serum glucose measurement (m ass/volume)Ordered By: Walter Becker on 09-29-2024 Glucose [Mass/Vol] 155 mg/dL High 70-99 [facility] Serum or plasma alanine davis otransferase (ALT) measurementOrdered By: Walter Becker on 09-29-2024 ALT [Catalytic activity/Vol] 19 U/L <47 [facility] Serum or plasma albumin antoine urement (mass/volume)Ordered By: Walter Becker on 09-29-2024 Albumin [Mass/Vol] 3.6 g/dL 3.4-4.8 [facility] Serum or plasma albumin/glob ulin mass ratioOrdered By: Walter Becker on 09-29-2024 Albumin/Globulin [Mass ratio] 1.8 {ratio} 0.9-2.4 [facility] Serum or plasma alkaline marilin sphatase measurementOrdered By: Walter Becker on 09-29-2024 ALP [Catalytic activity/Vol] 101 U/L 40-129 [facility] Serum or plasma calcium antoine urement (mass/volume)Ordered By: Walter Becker on 03-18-2025 Calcium [Mass/Vol] 9.2 mg/dL 7.6-11.0 [facility] Serum or plasma urea nitroge n measurement (mass/volume)Ordered By: Walter Becker on 09-29-2024 Urea nitrogen [Mass/Vol] 23 mg/dL High 4-19 [facility] Sodium levelOrdered By: Walter Becker on 09-29-2024 Sodium [Moles/Vol] 141 mmol/L 133-145 [facility] Total proteinOrdered By: Crystal Becker on 09-29-2024 Protein [Mass/Vol] 5.6 g/dL Low 5.9-8.4 [facility] White blood cell (WBC) count Ordered By: Walter Becker on 09-29-2024 WBC (Bld) [#/Vol] 8.9 10*3/uL 4.4-11.0 [facility] Urine Cultureon 08-05-2024 U[facility] Culture exhibits no growth. Normal [facility] Comment on above: Performed By: #### L 500.4050, [id number], L100.0500 #### [facility] [address] [place], [address] Albumin to globulin ratioOrd ered By: Walter Becker on 08-04-2024 Albumin/Globulin [Mass ratio] 1.0 {ratio} 0.9-2.4 [facility] Bilirubin Test strip Ql (U)O rdered By: Walter Becker on 08-04-2024 Bilirubin Ql (U) Negative Negative [facility] Bilirubin, totalOrdered By: Walter Becker on 08-04-2024 Bilirubin [Mass/Vol] 0.50 mg/dL 0.20-1.00 [facility] Comment on above: For patients on eltr ombopag therapy, use of Dimension Sylvester TBIL is not recommended. Blood urea nitrogen (BUN)/cr eatinine ratioOrdered By: Walter Becker on 08-04-2024 Urea nitrogen/Creatinine [Mass ratio] 21.1 mg/mg High 10-20 [facility] CBC-Complete Blood Cnt No Di ffon 08-04-2024 Erythrocyte distribution width (RBC) [Ratio] 13.0 % Normal 11.6-14.6 [facility] Comment on above: Order Comment: 215.2 Performed By: #### L 500.4050, [id number], L100.0500 #### [facility] [address] [place], [address] Hematocrit (Bld) [Volume fraction] 41.3 % Normal 40-54 [facility] Comment on above: Order Comment: 215.2 Performed By: #### L 500.4050, [id number], L100.0500 #### [facility] [address] [place], [address] Hemoglobin (Bld) [Mass/Vol] 12.9 g/dL Low 13.0-16. 5 [facility] Comment on above: Order Comment: 215.2 Performed By: #### L 500.4050, [id number], L100.0500 #### [facility] [address] [place], [address] MCH (RBC) [Entitic mass] 27.3 pg Normal 27.0-32.0 [facility] Comment on above: Order Comment: 215.2 Performed By: #### L 500.4050, [id number], L100.0500 #### [facility] [address] [place], [address] MCHC (RBC) [Mass/Vol] 31.2 g/dL Low 32-36 [facility] Comment on above: Order Comment: 215.2 Performed By: #### L 500.4050, [id number], L100.0500 #### [facility] [address] [place], [address] MCV (RBC) [Entitic vol] 87.3 fL Normal 80-[address] [facility] Comment on above: Order Comment: 215.2 Performed By: #### L 500.4050, [id number], L100.0500 #### [facility] [address] [place], [address] Platelet mean volume (Bld) [Entitic vol] 9.3 fL Normal 6.2-12.0 [facility] Comment on above: Order Comment: 215.2 Performed By: #### L 500.4050, [id number], L100.0500 #### [facility] [address] [place], [address] Platelets (Bld) [#/Vol] 295 10*3/uL Normal 150-450 [facility] Comment on above: Order Comment: 215.2 Performed By: #### L 500.4050, [id number], L100.0500 #### [facility] [address] [place], [address] RBC (Bld) [#/Vol] 4.73 10*6/uL Normal 4.6-6.2 [facility] Comment on above: Order Comment: 215.2 Performed By: #### L 500.4050, [id number], L100.0500 #### [facility] [address] [place], [address] RDW SD 41.8 fl Normal 35.1-43.9 [facility] Comment on above: Order Comment: 215.2 Performed By: #### L 500.4050, [id number], L100.0500 #### [facility] [address] [place], [address] WBC (Bld) [#/Vol] 9.3 10*3/uL Normal 4.4-11.0 [facility] Comment on above: Order Comment: 215.2 Performed By: #### L 500.4050, [id number], L100.0500 #### [facility] [address] [place], [address] Carbon dioxide measurementOr dered By: Walter Becker on 08-04-2024 CO2 [Moles/Vol] 29.0 mmol/L 21.0-32.0 [facility] Chloride measurementOrdered By: Walter Becker on 08-04-2024 Chloride [Moles/Vol] 104 mmol/L 98-107 [facility] Comprehensive Metabolic Prof ilon 08-04-2024 Albumin [Mass/Vol] 3.5 g/dL Normal 3.2-5.0 [facility] Comment on above: Order Comment: 215.2 Performed By: #### L 500.4050, [id number], L100.0500 #### [facility] [address] [place], [address] Albumin/Globulin [Mass ratio] 1.0 {ratio} Normal 0.9-2.4 [facility] Comment on above: Order Comment: 215.2 Performed By: #### L 500.4050, [id number], L100.0500 #### [facility] [address] [place], [address] ALK P 125 U/L High 45-117 [facility] Comment on above: Order Comment: 215.2 Performed By: #### L 500.4050, [id number], L100.0500 #### [facility] [address] [place], [address] ALT [Catalytic activity/Vol] 19 U/L Normal 16-61 [facility] Comment on above: Order Comment: 215.2 Performed By: #### L 500.4050, [id number], L100.0500 #### [facility] [address] [place], [address] AST [Catalytic activity/Vol] 12 U/L Low 15-37 [facility] Comment on above: Order Comment: 215.2 Performed By: #### L 500.4050, [id number], L100.0500 #### [facility] [address] [place], [address] Bilirubin [Mass/Vol] 0.50 mg/dL Normal 0.20-1.00 [facility] Comment on above: Order Comment: 215.2 Result Comment: For patients on eltrombopag therapy, use of Dimension Sylvester TBIL is not recommended. Performed By: #### L 500.4050, [id number], L100.0500 #### [facility] [address] [place], [address] BUN/CRE 21.1 RATIO High 10-20 [facility] Comment on above: Order Comment: 215.2 Performed By: #### L 500.4050, [id number], L100.0500 #### [facility] [address] [place], [address] CA,Total 9.7 mg/dL Normal 8.5-10.1 [facility] Comment on above: Order Comment: 215.2 Performed By: #### L 500.4050, [id number], L100.0500 #### [facility] [address] [place], [address] Chloride [Moles/Vol] 104 mmol/L Normal 98-107 [facility] Comment on above: Order Comment: 215.2 Performed By: #### L 500.4050, [id number], L100.0500 #### [facility] [address] [place], [address] CO2 [Moles/Vol] 29.0 mmol/L Normal 21.0-32.0 [facility] Comment on above: Order Comment: 215.2 Performed By: #### L 500.4050, [id number], L100.0500 #### [facility] [address] [place], [address] Creatinine [Mass/Vol] 1.28 mg/dL Normal 0.70-1.30 [facility] Comment on above: Order Comment: 215.2 Result Comment: The validity of the calculated GFR GFRAA in patients over 70 years has not been determined. Clinical correlation is essential. Performed By: #### L 500.4050, [id number], L100.0500 #### [facility] [address] [place], [address] EST GFR - AA 70 mL/min Normal >60 [facility] Comment on above: Order Comment: 215.2 Result Comment: Afri can Citizen [place] GFR Calc Performed By: #### L 500.4050, [id number], L100.0500 #### [facility] [address] [place], [address] GAP 7 Normal 5-15 [facility] Comment on above: Order Comment: 215.2 Performed By: #### L 500.4050, [id number], L100.0500 #### [facility] [address] [place], [address] GFR/1.73 sq M.predicted among non-blacks MDRD (S/P/Bld) [Vol rate/Area] 58 mL/min/{1.73_m2} Low >60 [facility] Comment on above: Order Comment: 215.2 Result Comment: Non- GFR Calc Performed By: #### L [id number], L501.9985, L100.0500 #### [facility] [address] [place], [address] Globulin (S) [Mass/Vol] 3.5 g/dL Normal 2.2-4.2 [facility] Comment on above: Order Comment: 215.2 Performed By: #### L [id number], [id number], L100.0500 #### [facility] [address] [place], [address] Glucose [Mass/Vol] 128 mg/dL High 74-106 [facility] Comment on above: Order Comment: 215.2 Result Comment: Fast ing Glucose result greater than or equal to 126 mg/dL suggests DIABETES MELLITUS per A.D.A. criteria. Performed By: #### L [id number], [id number], L100.0500 #### [facility] [address] [place], [address] Potassium [Moles/Vol] 3.9 mmol/L Normal 3.5-5.1 [facility] Comment on above: Order Comment: 215.2 Performed By: #### L [id number], [id number], L100.0500 #### [facility] [address] [place], [address] Sodium [Moles/Vol] 140 mmol/L Normal 136-145 [facility] Comment on above: Order Comment: 215.2 Performed By: #### L [id number], [id number], [id number] #### [facility] [address] [place], [address] T PROT 7.0 g/dL Normal 6.4-8.2 [facility] Comment on above: Order Comment: 215.2 Performed By: #### L [id number], [id number], [id number] #### [facility] [address] [place], [address] Urea nitrogen [Mass/Vol] 27 mg/dL High 7-18 [facility] Comment on above: Order Comment: 215.2 Performed By: #### L [id number], [id number], [id number] #### [facility] [address] [place], [address] Epithelial cells.squamous LM Ql (Urine sed)Ordered By: Walter Becker on 08-04-2024 Epithelial cells.squamous LM.HPF (Urine sed) [#/Area] 0 /[HPF] 0-5 [facility] Erythrocyte distribution wid th (RBC) [Ratio]Ordered By: Walter Becker on 08-04-2024 Erythrocyte distribution width (RBC) [Entitic vol] 41.8 fL 35.1-43.9 [facility] Erythrocyte distribution wid th ratioOrdered By: Walter Becker on 08-04-2024 Erythrocyte distribution width (RBC) [Ratio] 13.0 % 11.6-14.6 [facility] Estimated glomerular filtrat ion rate (GFR) AmericanOrdered By: Walter Becker on 08-04-2024 Estimated GFR (MDRD) Amer 70 mL/min >60 [facility] Comment on above: GFR Calc Glomerular filtration rate ( GFR) estimationOrdered By: Walter Becker on 08-04-2024 Estimated GFR (MDRD) Non-Af Amer 58 mL/min Low >60 [facility] Comment on above: Non- GFR Calc Glucose Ql (U)Ordered By: Horner on 08-04-2024 Urine Glucose (UA) Normal mg/dl Normal [facility] Glucose measurementOrdered B y: Walter Becker on 08-04-2024 Glucose [Mass/Vol] 128 mg/dL High 74-106 [facility] Comment on above: Fasting Glucose resu lt greater than or equal to 126 mg/dL suggests DIABETES MELLITUS per A.D.A. criteria. Hematocrit Auto (Bld) [Volum e fraction]Ordered By: Walter Becker on 08-04-2024 Hematocrit (Bld) [Volume fraction] 41.3 % 40-54 [facility] Hemoglobin measurementOrdere d By: Walter Becker on 08-04-2024 Hemoglobin (Bld) [Mass/Vol] 12.9 g/dL Low 13.0-16. 5 [facility] Ketones Test strip Ql (U)Ord ered By: Walter Becker on 08-04-2024 Ketones Ql (U) Negative Negative [facility] - Chemistry and C hemistry - challengeOrdered By: Walter Becker on 08-04-2024 AST [Catalytic activity/Vol] 12 U/L Low 15-37 [facility] MCV (mean corpuscular volume ) determinationOrdered By: Walter Becker on 08-04-2024 MCV (RBC) [Entitic vol] 87.3 fL 80-[address] [facility] Mean corpuscular hemoglobin (MCH) determinationOrdered By: Walter Becker on 08-04-2024 MCH (RBC) [Entitic mass] 27.3 pg 27.0-32.0 [facility] Mean corpuscular hemoglobin concentration (MCHC) determinationOrdered By: Walter Becker on 08-04-2024 MCHC (RBC) [Mass/Vol] 31.2 g/dL Low 32-36 [facility] Mean platelet volume determi nationOrdered By: Walter Becker on 08-04-2024 Platelet mean volume (Bld) [Entitic vol] 9.3 fL 6.2-12.0 [facility] Microscopic analysis of urin e for red blood cells (RBC)Ordered By: Walter Becker on 08-04-2024 Urine RBC 0 SEEN /hpf 0-5 [facility] Mucus LM Ql (Urine sed)Order ed By: Walter Becker on 08-04-2024 Mucus Ql (Urine sed) 0 SEEN /hpf [facility] Nitrite Test strip Ql (U)Ord ered By: Walter Becker on 08-04-2024 Nitrite Ql (U) Negative Negative [facility] Platelet countOrdered By: Horner on 08-04-2024 Platelets (Bld) [#/Vol] 295 10*3/uL 150-450 [facility] Potassium measurementOrdered By: Walter Becker on 08-04-2024 Potassium [Moles/Vol] 3.9 mmol/L 3.5-5.1 [facility] Protein Test strip Ql (U)Ord ered By: Walter Becker on 08-04-2024 Protein Ql (U) Negative Negative [facility] RBC Auto (Bld) [#/Vol]Ordere d By: Walter Becker on 08-04-2024 RBC (Bld) [#/Vol] 4.73 10*6/uL 4.6-6.2 [facility] Serum anion gap measurementO rdered By: Walter Becker on 08-04-2024 Anion gap [Moles/Vol] 7 mmol/L 5-15 [facility] Serum globulin measurementOr dered By: Walter Becker on 08-04-2024 Globulin (S) [Mass/Vol] 3.5 g/dL 2.2-4.[address] [facility] Serum or plasma alanine davis otransferase (ALT) measurementOrdered By: Walter Becker on 08-04-2024 ALT [Catalytic activity/Vol] 19 U/L 16-61 [facility] Serum or plasma albumin antoine urement (mass/volume)Ordered By: Walter Becker on 08-04-2024 Albumin [Mass/Vol] 3.5 g/dL 3.2-5.0 [facility] Serum or plasma alkaline marilin sphatase measurementOrdered By: Walter Becker on 08-04-2024 ALP [Catalytic activity/Vol] 125 U/L High 45-117 [facility] Serum or plasma calcium antoine urement (mass/volume)Ordered By: Walter Becker on 08-04-2024 Calcium [Mass/Vol] 9.7 mg/dL 8.5-10.1 [facility] Serum or plasma creatinine m easurement (mass/volume)Ordered By: Walter Becker on 08-04-2024 Creatinine [Mass/Vol] 1.28 mg/dL 0.70-1.30 [facility] Comment on above: The validity of the calculated GFR & GFRAA in patients over 70 years has not been determined. Clinical correlation is essential. Serum or plasma urea nitroge n measurement (mass/volume)Ordered By: Walter Becker on 08-04-2024 Urea nitrogen [Mass/Vol] 27 mg/dL High 7-18 [facility] Sodium levelOrdered By: Walter Becker on 08-04-2024 Sodium [Moles/Vol] 140 mmol/L 136-145 [facility] Total proteinOrdered By: Crystal Becker on 08-04-2024 Protein [Mass/Vol] 7.0 g/dL 6.4-8.2 [facility] Urinalysis, Completeon 08-04 WBC 0-5 SEEN Normal 0-5 [facility] Comment on above: Order Comment: 215.2 Performed By: #### L 500.1756, [id number], L100.0500 #### [facility] [address] [place], [address] BACTERIA 0 SEEN Normal None Seen [facility] Comment on above: Order Comment: 215.2 Performed By: #### L [id number], [id number], [id number] #### [facility] [address] [place], [address] EPI,SQUAMOUS 0 SEEN Normal 0-5 [facility] Comment on above: Order Comment: 215.2 Performed By: #### L [id number], [id number], [id number] #### [facility] [address] [place], [address] Mucus Ql (Urine sed) 0 SEEN Normal [facility] Comment on above: Order Comment: 215.2 Performed By: #### L [id number], [id number], [id number] #### [facility] [address] [place], [address] RBC 0 SEEN Normal 0-5 [facility] Comment on above: Order Comment: 215.2 Performed By: #### L [id number], [id number], [id number] #### [facility] [address] [place], [address] Urine blood detectionOrdered By: Walter Becker on 08-04-2024 Urine Occult Blood Negative Negative [facility] Urine clarityOrdered By: Crystal Becker on 08-04-2024 Clarity (U) Clear Clear [facility] Urine color determinationOrd ered By: Walter Becker on 08-04-2024 Color (U) Yellow Yellow [facility] Urine cultureOrdered By: Crystal Becker on 08-04-2024 Bacteria identified Cx Nom (U) Culture exhibits no growth. [facility] Urine leukocyte esterase det ection by dipstickOrdered By: Walter Becker on 08-04-2024 Leukocyte esterase Test strip Ql (U) Negative Negative [facility] Urine pHOrdered By: Walter floyd on 08-04-2024 pH (U) 6.0 [pH] 5.0 - 8.0 [facility] Urine sediment bacteria coun t by microscopy (number/high power field)Ordered By: Walter Becker on 08-04-2024 Bacteria LM.HPF (Urine sed) [#/Area] 0 /[HPF] None Seen [facility] Urine specific gravity measu rementOrdered By: Walter Becker on 08-04-2024 Specific gravity (U) [Rel density] 1.010 1.002-1.03 0 [facility] Urobilinogen Ql (U)Ordered B y: Walter Becker on 08-04-2024 Urine Urobilinogen Normal mg/dl Normal [facility] White blood cell (WBC) count Ordered By: Walter Becker on 08-04-2024 WBC (Bld) [#/Vol] 9.3 10*3/uL 4.4-11.0 [facility] White blood cell countOrdere d By: Walter Becker on 08-04-2024 Urine WBC 0-5 SEEN /hpf 0-5 [facility] Albumin to globulin ratioOrd ered By: Walter Becker on 07-27-2024 Albumin/Globulin [Mass ratio] 1.1 {ratio} 0.9-2.4 [facility] Bilirubin, totalOrdered By: Walter Becker on 07-27-2024 Bilirubin [Mass/Vol] 0.60 mg/dL 0.20-1.00 [facility] Comment on above: For patients on eltr ombopag therapy, use of Dimension Sylvester TBIL is not recommended. Blood urea nitrogen (BUN)/cr eatinine ratioOrdered By: Walter Becker on 07-27-2024 Urea nitrogen/Creatinine [Mass ratio] 20.0 mg/mg 10-20 [facility] CBC-Complete Blood Cnt No Di ffon 07-27-2024 Erythrocyte distribution width (RBC) [Ratio] 13.5 % Normal 11.6-14.6 [facility] Comment on above: Order Comment: 215.2 Performed By: #### L [id number], L501.9985, L100.0500 #### [facility] [address] [place], [address] Hematocrit (Bld) [Volume fraction] 35.7 % Low 40-54 [facility] Comment on above: Order Comment: 215.2 Performed By: #### L [id number], [id number], L100.0500 #### [facility] [address] [place], [address] Hemoglobin (Bld) [Mass/Vol] 11.5 g/dL Low 13.0-16. 5 [facility] Comment on above: Order Comment: 215.2 Performed By: #### L [id number], [id number], L100.0500 #### [facility] [address] [place], [address] MCH (RBC) [Entitic mass] 28.2 pg Normal 27.0-32.0 [facility] Comment on above: Order Comment: 215.2 Performed By: #### L [id number], [id number], L100.0500 #### [facility] [address] [place], [address] MCHC (RBC) [Mass/Vol] 32.2 g/dL Normal 32-36 [facility] Comment on above: Order Comment: 215.2 Performed By: #### L [id number], [id number], L100.0500 #### [facility] [address] [place], [address] MCV (RBC) [Entitic vol] 87.5 fL Normal 80-[address] [facility] Comment on above: Order Comment: 215.2 Performed By: #### L [id number], [id number], L100.0500 #### [facility] [address] [place], [address] Platelet mean volume (Bld) [Entitic vol] 9.6 fL Normal 6.2-12.0 [facility] Comment on above: Order Comment: 215.2 Performed By: #### L 500.4050, [id number], L100.0500 #### [facility] [address] [place], [address] Platelets (Bld) [#/Vol] 192 10*3/uL Normal 150-450 [facility] Comment on above: Order Comment: 215.2 Performed By: #### L 500.4050, [id number], L100.0500 #### [facility] [address] [place], [address] RBC (Bld) [#/Vol] 4.08 10*6/uL Low 4.6-6.2 [facility] Comment on above: Order Comment: 215.2 Performed By: #### L [id number], [id number], L100.0500 #### [facility] [address] [place], [address] RDW SD 43.1 fl Normal 35.1-43.9 [facility] Comment on above: Order Comment: 215.2 Performed By: #### L 500.4050, [id number], L100.0500 #### [facility] [address] [place], [address] WBC (Bld) [#/Vol] 7.2 10*3/uL Normal 4.4-11.0 [facility] Comment on above: Order Comment: 215.2 Performed By: #### L 500.4050, [id number], L100.0500 #### [facility] [address] [place], [address] Carbon dioxide measurementOr dered By: Walter Becker on 07-27-2024 CO2 [Moles/Vol] 29.0 mmol/L 21.0-32.0 [facility] Chloride measurementOrdered By: Walter Becker on 07-27-2024 Chloride [Moles/Vol] 105 mmol/L 98-107 [facility] Comprehensive Metabolic Prof ilon 07-27-2024 Albumin [Mass/Vol] 3.1 g/dL Low 3.2-5.0 [facility] Comment on above: Order Comment: 215.2 Performed By: #### L [id number], [id number], L100.0500 #### [facility] [address] [place], [address] Albumin/Globulin [Mass ratio] 1.1 {ratio} Normal 0.9-2.4 [facility] Comment on above: Order Comment: 215.2 Performed By: #### L [id number], [id number], L100.0500 #### [facility] [address] [place], [address] ALK P 124 U/L High 45-117 [facility] Comment on above: Order Comment: 215.2 Performed By: #### L 500.4050, [id number], L100.0500 #### [facility] [address] [place], [address] ALT [Catalytic activity/Vol] 20 U/L Normal 16-61 [facility] Comment on above: Order Comment: 215.2 Performed By: #### L 500.4050, [id number], L100.0500 #### [facility] [address] [place], [address] AST [Catalytic activity/Vol] 10 U/L Low 15-37 [facility] Comment on above: Order Comment: 215.2 Performed By: #### L 500.4050, [id number], L100.0500 #### [facility] [address] [place], [address] Bilirubin [Mass/Vol] 0.60 mg/dL Normal 0.20-1.00 [facility] Comment on above: Order Comment: 215.2 Result Comment: For patients on eltrombopag therapy, use of Dimension Sylvester TBIL is not recommended. Performed By: #### L 500.4050, [id number], L100.0500 #### [facility] [address] [place], [address] BUN/CRE 20.0 RATIO Normal 10-20 [facility] Comment on above: Order Comment: 215.2 Performed By: #### L 500.4050, [id number], L100.0500 #### [facility] [address] [place], [address] CA,Total 8.9 mg/dL Normal 8.5-10.1 [facility] Comment on above: Order Comment: 215.2 Performed By: #### L 500.4050, [id number], L100.0500 #### [facility] [address] [place], [address] Chloride [Moles/Vol] 105 mmol/L Normal 98-107 [facility] Comment on above: Order Comment: 215.2 Performed By: #### L 500.4050, [id number], L100.0500 #### [facility] [address] [place], [address] CO2 [Moles/Vol] 29.0 mmol/L Normal 21.0-32.0 [facility] Comment on above: Order Comment: 215.2 Performed By: #### L 500.4050, [id number], L100.0500 #### [facility] [address] [place], [address] Creatinine [Mass/Vol] 1.10 mg/dL Normal 0.70-1.30 [facility] Comment on above: Order Comment: 215.2 Result Comment: The validity of the calculated GFR GFRAA in patients over 70 years has not been determined. Clinical correlation is essential. Performed By: #### L 500.4050, [id number], L100.0500 #### [facility] [address] [place], [address] EST GFR - AA 84 mL/min Normal >60 [facility] Comment on above: Order Comment: 215.2 Result Comment: Afri can Citizen [place] GFR Calc Performed By: #### L [id number], [id number], L100.0500 #### [facility] [address] [place], [address] GAP 4 Low 5-15 [facility] Comment on above: Order Comment: 215.2 Performed By: #### L 500.4050, [id number], L100.0500 #### [facility] [address] [place], [address] GFR/1.73 sq M.predicted among non-blacks MDRD (S/P/Bld) [Vol rate/Area] 69 mL/min/{1.73_m2} Normal >60 [facility] Comment on above: Order Comment: 215.2 Result Comment: Non- GFR Calc Performed By: #### L 500.4050, [id number], L100.0500 #### [facility] [address] [place], [address] Globulin (S) [Mass/Vol] 2.9 g/dL Normal 2.2-4.[address] [facility] Comment on above: Order Comment: 215.2 Performed By: #### L 500.4050, [id number], L100.0500 #### [facility] [address] [place], [address] Glucose [Mass/Vol] 127 mg/dL High 74-106 [facility] Comment on above: Order Comment: 215.2 Result Comment: Fast ing Glucose result greater than or equal to 126 mg/dL suggests DIABETES MELLITUS per A.D.A. criteria. Performed By: #### L 500.4050, [id number], L100.0500 #### [facility] [address] [place], [address] Potassium [Moles/Vol] 4.1 mmol/L Normal 3.5-5.1 [facility] Comment on above: Order Comment: 215.2 Performed By: #### L 500.4050, [id number], L100.0500 #### [facility] [address] [place], [address] Sodium [Moles/Vol] 137 mmol/L Normal 136-145 [facility] Comment on above: Order Comment: 215.2 Performed By: #### L 500.4050, [id number], L100.0500 #### [facility] [address] [place], [address] T PROT 6.0 g/dL Low 6.4-8.2 [facility] Comment on above: Order Comment: 215.2 Performed By: #### L 500.4050, [id number], L100.0500 #### [facility] [address] [place], [address] Urea nitrogen [Mass/Vol] 22 mg/dL High 7-18 [facility] Comment on above: Order Comment: 215.2 Performed By: #### L 500.4050, [id number], L100.0500 #### [facility] [address] [place], [address] Erythrocyte distribution wid th (RBC) [Ratio]Ordered By: Walter Becker on 07-27-2024 Erythrocyte distribution width (RBC) [Entitic vol] 43.1 fL 35.1-43.9 [facility] Erythrocyte distribution wid th ratioOrdered By: Walter Becker on 07-27-2024 Erythrocyte distribution width (RBC) [Ratio] 13.5 % 11.6-14.6 [facility] Estimated glomerular filtrat ion rate (GFR) AmericanOrdered By: Walter Becker on 07-27-2024 Estimated GFR (MDRD) Amer 84 mL/min >60 [facility] Comment on above: GFR Calc Glomerular filtration rate ( GFR) estimationOrdered By: Walter Becker on 07-27-2024 Estimated GFR (MDRD) Non-Af Amer 69 mL/min >60 [facility] Comment on above: Non- GFR Calc Glucose measurementOrdered B y: Walter Becker on 07-27-2024 Glucose [Mass/Vol] 127 mg/dL High 74-106 [facility] Comment on above: Fasting Glucose resu lt greater than or equal to 126 mg/dL suggests DIABETES MELLITUS per A.D.A. criteria. Hematocrit Auto (Bld) [Volum e fraction]Ordered By: Walter Becker on 07-27-2024 Hematocrit (Bld) [Volume fraction] 35.7 % Low 40-54 [facility] Hemoglobin measurementOrdere d By: Walter Becker on 07-27-2024 Hemoglobin (Bld) [Mass/Vol] 11.5 g/dL Low 13.0-16. 5 [facility] - Chemistry and C hemistry - challengeOrdered By: Walter Becker on 07-27-2024 AST [Catalytic activity/Vol] 10 U/L Low 15-37 [facility] MCV (mean corpuscular volume ) determinationOrdered By: Walter Becker on 07-27-2024 MCV (RBC) [Entitic vol] 87.5 fL 80-94 [facility] Mean corpuscular hemoglobin (MCH) determinationOrdered By: Walter Becker on 07-27-2024 MCH (RBC) [Entitic mass] 28.2 pg 27.0-32.0 [facility] Mean corpuscular hemoglobin concentration (MCHC) determinationOrdered By: Walter Becker on 07-27-2024 MCHC (RBC) [Mass/Vol] 32.2 g/dL 32-36 [facility] Mean platelet volume determi nationOrdered By: Walter Becker on 07-27-2024 Platelet mean volume (Bld) [Entitic vol] 9.6 fL 6.2-12.0 [facility] Platelet countOrdered By: Horner on 07-27-2024 Platelets (Bld) [#/Vol] 192 10*3/uL 150-450 [facility] Potassium measurementOrdered By: Walter Becker on 07-27-2024 Potassium [Moles/Vol] 4.1 mmol/L 3.5-5.1 [facility] RBC Auto (Bld) [#/Vol]Ordere d By: Walter Becker on 07-27-2024 RBC (Bld) [#/Vol] 4.08 10*6/uL Low 4.6-6.2 [facility] Serum anion gap measurementO rdered By: Walter Becker on 07-27-2024 Anion gap [Moles/Vol] 4 mmol/L Low 5-15 [facility] Serum globulin measurementOr dered By: Walter Becker on 07-27-2024 Globulin (S) [Mass/Vol] 2.9 g/dL 2.2-4.[address] [facility] Serum or plasma alanine davis otransferase (ALT) measurementOrdered By: Walter Becker on 07-27-2024 ALT [Catalytic activity/Vol] 20 U/L 16-61 [facility] Serum or plasma albumin antoine urement (mass/volume)Ordered By: Walter Becker on 07-27-2024 Albumin [Mass/Vol] 3.1 g/dL Low 3.2-5.0 [facility] Serum or plasma alkaline marilin sphatase measurementOrdered By: Walter Becker on 07-27-2024 ALP [Catalytic activity/Vol] 124 U/L High 45-117 [facility] Serum or plasma calcium antoine urement (mass/volume)Ordered By: Walter Becker on 07-27-2024 Calcium [Mass/Vol] 8.9 mg/dL 8.5-10.1 [facility] Serum or plasma creatinine m easurement (mass/volume)Ordered By: Walter Becker on 07-27-2024 Creatinine [Mass/Vol] 1.10 mg/dL 0.70-1.30 [facility] Comment on above: The validity of the calculated GFR & GFRAA in patients over 70 years has not been determined. Clinical correlation is essential. Serum or plasma urea nitroge n measurement (mass/volume)Ordered By: Walter Becker on 07-27-2024 Urea nitrogen [Mass/Vol] 22 mg/dL High 01-29 [facility] Sodium levelOrdered By: Walter Becker on 07-27-2024 Sodium [Moles/Vol] 137 mmol/L 136-145 [facility] Total proteinOrdered By: Crystal Becker on 07-27-2024 Protein [Mass/Vol] 6.0 g/dL Low 6.4-8.2 [facility] White blood cell (WBC) count Ordered By: Walter Becker on 07-27-2024 WBC (Bld) [#/Vol] 7.2 10*3/uL 4.4-11.0 [facility] Albumin to globulin ratioOrd ered By: Walter Becker on 07-07-2024 Albumin/Globulin [Mass ratio] 1.0 {ratio} 0.9-2.4 [facility] Bilirubin, totalOrdered By: Walter Becker on 07-07-2024 Bilirubin [Mass/Vol] 0.40 mg/dL 0.20-1.00 [facility] Comment on above: For patients on eltr ombopag therapy, use of Dimension Sylvester TBIL is not recommended. Blood urea nitrogen (BUN)/cr eatinine ratioOrdered By: Walter Becker on 07-07-2024 Urea nitrogen/Creatinine [Mass ratio] 23.6 mg/mg High 05-03 [facility] CBC-Complete Blood Cnt No Di ffon 07-07-2024 Erythrocyte distribution width (RBC) [Ratio] 13.3 % Normal 11.6-14.6 [facility] Comment on above: Order Comment: 215.2 Performed By: #### L 500.4050, L501.9985, L100.0500 #### [facility] [address] [place], [address] Hematocrit (Bld) [Volume fraction] 38.1 % Low 40-54 [facility] Comment on above: Order Comment: 215.2 Performed By: #### L 500.4050, L501.9985, L100.0500 #### [facility] [address] [place], [address] Hemoglobin (Bld) [Mass/Vol] 12.3 g/dL Low 13.0-16. 5 [facility] Comment on above: Order Comment: 215.2 Performed By: #### L 500.4050, L501.9985, L100.0500 #### [facility] [address] [place], [address] MCH (RBC) [Entitic mass] 28.3 pg Normal 27.0-32.0 [facility] Comment on above: Order Comment: 215.2 Performed By: #### L 500.4050, L501.9985, L100.0500 #### [facility] [address] [place], [address] MCHC (RBC) [Mass/Vol] 32.3 g/dL Normal 32-36 [facility] Comment on above: Order Comment: 215.2 Performed By: #### L 500.4050, L501.9985, L100.0500 #### [facility] [address] [place], [address] MCV (RBC) [Entitic vol] 87.6 fL Normal 80-[address] [facility] Comment on above: Order Comment: 215.2 Performed By: #### L 500.4050, L501.9985, L100.0500 #### [facility] [address] [place], [address] Platelet mean volume (Bld) [Entitic vol] 9.1 fL Normal 6.2-12.0 [facility] Comment on above: Order Comment: 215.2 Performed By: #### L 500.4050, L501.9985, L100.0500 #### [facility] [address] [place], [address] Platelets (Bld) [#/Vol] 211 10*3/uL Normal 150-450 [facility] Comment on above: Order Comment: 215.2 Performed By: #### L 500.4050, L501.9985, L100.0500 #### [facility] [address] [place], [address] RBC (Bld) [#/Vol] 4.35 10*6/uL Low 4.6-6.2 [facility] Comment on above: Order Comment: 215.2 Performed By: #### L 500.4050, L501.9985, L100.0500 #### [facility] [address] [place], [address] RDW SD 42.5 fl Normal 35.1-43.9 [facility] Comment on above: Order Comment: 215.2 Performed By: #### L 500.4050, L501.9985, L100.0500 #### [facility] [address] [place], [address] WBC (Bld) [#/Vol] 7.6 10*3/uL Normal 4.4-11.0 [facility] Comment on above: Order Comment: 215.2 Performed By: #### L 500.4050, L501.9985, L100.0500 #### [facility] [address] [place], [address] Carbon dioxide measurementOr dered By: Walter Becker on 07-07-2024 CO2 [Moles/Vol] 32.0 mmol/L 21.0-32.0 [facility] Chloride measurementOrdered By: Walter Becker on 07-07-2024 Chloride [Moles/Vol] 107 mmol/L 98-107 [facility] Comprehensive Metabolic Prof ilon 07-07-2024 Albumin [Mass/Vol] 2.9 g/dL Low 3.2-5.0 [facility] Comment on above: Order Comment: 215.2 Performed By: #### L 500.4050, L501.9985, L100.0500 #### [facility] [address] [place], [address] Albumin/Globulin [Mass ratio] 1.0 {ratio} Normal 0.9-2.4 [facility] Comment on above: Order Comment: 215.2 Performed By: #### L 500.4050, L501.9985, L100.0500 #### [facility] [address] [place], [address] ALK P 121 U/L High 45-117 [facility] Comment on above: Order Comment: 215.2 Performed By: #### L 500.4050, L501.9985, L100.0500 #### [facility] [address] [place], [address] ALT [Catalytic activity/Vol] 20 U/L Normal 16-61 [facility] Comment on above: Order Comment: 215.2 Performed By: #### L 500.4050, L501.9985, L100.0500 #### [facility] [address] [place], [address] AST [Catalytic activity/Vol] 10 U/L Low 15-37 [facility] Comment on above: Order Comment: 215.2 Performed By: #### L 500.4050, L501.9985, L100.0500 #### [facility] [address] [place], [address] Bilirubin [Mass/Vol] 0.40 mg/dL Normal 0.20-1.00 [facility] Comment on above: Order Comment: 215.2 Result Comment: For patients on eltrombopag therapy, use of Dimension Sylvester TBIL is not recommended. Performed By: #### L 500.4050, L501.9985, L100.0500 #### [facility] [address] [place], [address] BUN/CRE 23.6 RATIO High 10-20 [facility] Comment on above: Order Comment: 215.2 Performed By: #### L 500.4050, L501.9985, L100.0500 #### [facility] [address] [place], [address] CA,Total 9.1 mg/dL Normal 8.5-10.1 [facility] Comment on above: Order Comment: 215.2 Performed By: #### L 500.4050, L501.9985, L100.0500 #### [facility] [address] [place], [address] Chloride [Moles/Vol] 107 mmol/L Normal 98-107 [facility] Comment on above: Order Comment: 215.2 Performed By: #### L 500.4050, L501.9985, L100.0500 #### [facility] [address] [place], [address] CO2 [Moles/Vol] 32.0 mmol/L Normal 21.0-32.0 [facility] Comment on above: Order Comment: 215.2 Performed By: #### L 500.4050, L501.9985, L100.0500 #### [facility] [address] [place], [address] Creatinine [Mass/Vol] 1.06 mg/dL Normal 0.70-1.30 [facility] Comment on above: Order Comment: 215.2 Result Comment: The validity of the calculated GFR GFRAA in patients over 70 years has not been determined. Clinical correlation is essential. Performed By: #### L 500.4050, L501.9985, L100.0500 #### [facility] [address] [place], [address] EST GFR - AA 87 mL/min Normal >60 [facility] Comment on above: Order Comment: 215.2 Result Comment: Afri can Citizen [place] GFR Calc Performed By: #### L 500.4050, L501.9985, L100.0500 #### [facility] [address] [place], [address] GAP 3 Low 5-15 [facility] Comment on above: Order Comment: 215.2 Performed By: #### L 500.4050, L501.9985, L100.0500 #### [facility] [address] [place], [address] GFR/1.73 sq M.predicted among non-blacks MDRD (S/P/Bld) [Vol rate/Area] 72 mL/min/{1.73_m2} Normal >60 [facility] Comment on above: Order Comment: 215.2 Result Comment: Non- GFR Calc Performed By: #### L 500.4050, L501.9985, L100.0500 #### [facility] [address] [place], [address] Globulin (S) [Mass/Vol] 3.0 g/dL Normal 2.2-4.2 [facility] Comment on above: Order Comment: 215.2 Performed By: #### L 500.4050, L501.9985, L100.0500 #### [facility] [address] [place], [address] Glucose [Mass/Vol] 130 mg/dL High 74-106 [facility] Comment on above: Order Comment: 215.2 Result Comment: Fast ing Glucose result greater than or equal to 126 mg/dL suggests DIABETES MELLITUS per A.D.A. criteria. Performed By: #### L 500.4050, L501.9985, L100.0500 #### [facility] [address] [place], [address] Potassium [Moles/Vol] 3.9 mmol/L Normal 3.5-5.1 [facility] Comment on above: Order Comment: 215.2 Performed By: #### L 500.4050, L501.9985, L100.0500 #### [facility] [address] [place], [address] Sodium [Moles/Vol] 141 mmol/L Normal 136-145 [facility] Comment on above: Order Comment: 215.2 Performed By: #### L 500.4050, L501.9985, L100.0500 #### [facility] [address] [place], [address] T PROT 5.9 g/dL Low 6.4-8.2 [facility] Comment on above: Order Comment: 215.2 Performed By: #### L 500.4050, L501.9985, L100.0500 #### [facility] [address] [place], [address] Urea nitrogen [Mass/Vol] 25 mg/dL High 7-18 [facility] Comment on above: Order Comment: 215.2 Performed By: #### L 500.4050, L501.9985, L100.0500 #### [facility] [address] [place], [address] Erythrocyte distribution wid th (RBC) [Ratio]Ordered By: Walter Becker on 07-07-2024 Erythrocyte distribution width (RBC) [Entitic vol] 42.5 fL 35.1-43.9 [facility] Erythrocyte distribution wid th ratioOrdered By: Walter Becker on 07-07-2024 Erythrocyte distribution width (RBC) [Ratio] 13.3 % 11.6-14.6 [facility] Estimated glomerular filtrat ion rate (GFR) AmericanOrdered By: Walter Becker on 07-07-2024 Estimated GFR (MDRD) Amer 87 mL/min >60 [facility] Comment on above: GFR Calc Glomerular filtration rate ( GFR) estimationOrdered By: Walter Becker on 07-07-2024 Estimated GFR (MDRD) Non-Af Amer 72 mL/min >60 [facility] Comment on above: Non- GFR Calc Glucose measurementOrdered B y: Walter Becker on 07-07-2024 Glucose [Mass/Vol] 130 mg/dL High 74-106 [facility] Comment on above: Fasting Glucose resu lt greater than or equal to 126 mg/dL suggests DIABETES MELLITUS per A.D.A. criteria. Hematocrit Auto (Bld) [Volum e fraction]Ordered By: Walter Becker on 07-07-2024 Hematocrit (Bld) [Volume fraction] 38.1 % Low 40-54 [facility] Hemoglobin A1con 07-07-2024 HbA1c (Bld) [Mass fraction] 6.4 % High 3.8-5.6 [facility] Comment on above: Order Comment: 215.2 Result Comment: Norm al < 5.7 % Prediabetic 5.7 - 6.4 % Diabetic >or= 6.5 % Please note range changes. Performed By: #### L 500.4050, L501.9985, L100.0500 #### [facility] [address] [place], [address] Hemoglobin A1c percentageOrd ered By: Walter Becker on 07-07-2024 HbA1c (Bld) [Mass fraction] 6.4 % High 3.8-5.6 [facility] Comment on above: Normal < 5.7 % Predi abetic 5.7 - 6.4 % Diabetic >or= 6.5 % Please note range changes. Hemoglobin measurementOrdere d By: Walter Becker on 07-07-2024 Hemoglobin (Bld) [Mass/Vol] 12.3 g/dL Low 13.0-16. 5 [facility] - Chemistry and C hemistry - challengeOrdered By: Walter Becker on 07-07-2024 AST [Catalytic activity/Vol] 10 U/L Low 15-37 [facility] MCV (mean corpuscular volume ) determinationOrdered By: Walter Becker on 07-07-2024 MCV (RBC) [Entitic vol] 87.6 fL 80-[address] [facility] Mean corpuscular hemoglobin (MCH) determinationOrdered By: Walter Becker on 07-07-2024 MCH (RBC) [Entitic mass] 28.3 pg 27.0-32.0 [facility] Mean corpuscular hemoglobin concentration (MCHC) determinationOrdered By: Walter Becker on 07-07-2024 MCHC (RBC) [Mass/Vol] 32.3 g/dL 32-36 [facility] Mean platelet volume determi nationOrdered By: Walter Becker on 07-07-2024 Platelet mean volume (Bld) [Entitic vol] 9.1 fL 6.2-12.0 [facility] Platelet countOrdered By: Horner on 07-07-2024 Platelets (Bld) [#/Vol] 211 10*3/uL 150-450 [facility] Potassium measurementOrdered By: Walter Becker on 07-07-2024 Potassium [Moles/Vol] 3.9 mmol/L 3.5-5.1 [facility] RBC Auto (Bld) [#/Vol]Ordere d By: Walter Becker on 07-07-2024 RBC (Bld) [#/Vol] 4.35 10*6/uL Low 4.6-6.2 [facility] Serum anion gap measurementO rdered By: Walter Becker on 07-07-2024 Anion gap [Moles/Vol] 3 mmol/L Low 5-15 [facility] Serum globulin measurementOr dered By: Walter Becker on 07-07-2024 Globulin (S) [Mass/Vol] 3.0 g/dL 2.2-4.[address] [facility] Serum or plasma alanine davis otransferase (ALT) measurementOrdered By: Walter Becker on 07-07-2024 ALT [Catalytic activity/Vol] 20 U/L 16-61 [facility] Serum or plasma albumin antoine urement (mass/volume)Ordered By: Walter Becker on 07-07-2024 Albumin [Mass/Vol] 2.9 g/dL Low 3.2-5.0 [facility] Serum or plasma alkaline marilin sphatase measurementOrdered By: Walter Becker on 07-07-2024 ALP [Catalytic activity/Vol] 121 U/L High 45-117 [facility] Serum or plasma calcium antoine urement (mass/volume)Ordered By: Walter Becker on 07-07-2024 Calcium [Mass/Vol] 9.1 mg/dL 8.5-10.1 [facility] Serum or plasma creatinine m easurement (mass/volume)Ordered By: Walter Becker on 07-07-2024 Creatinine [Mass/Vol] 1.06 mg/dL 0.70-1.30 [facility] Comment on above: The validity of the calculated GFR & GFRAA in patients over 70 years has not been determined. Clinical correlation is essential. Serum or plasma urea nitroge n measurement (mass/volume)Ordered By: Walter Becker on 07-07-2024 Urea nitrogen [Mass/Vol] 25 mg/dL High - [facility] Sodium levelOrdered By: Walter Becker on 07-07-2024 Sodium [Moles/Vol] 141 mmol/L 136-145 [facility] Total proteinOrdered By: Crystal Becker on 07-07-2024 Protein [Mass/Vol] 5.9 g/dL Low 6.4-8.2 [facility] White blood cell (WBC) count Ordered By: Walter Becker on 07-07-2024 WBC (Bld) [#/Vol] 7.6 10*3/uL 4.4-11.0 [facility] Vitamin D,25 Hydroxyon 07-02 Vitamin D 25-OH 58.5 ng/mL Normal [facility] Comment on above: Order Comment: 215.2 Result Comment: Laure min D 25(OH) Status Range Deficiency <20 ng/mL (50nmol/L) Insufficiency 20 - 30 ng/mL (50 - 75 nmol/L) Sufficiency 30 - 100 ng/mL (75 - 250 nmol/L) Toxicity >100 ng/mL (>250 nmol/L) Performed By: #### L 506.1000 #### [facility] [address] [place], [address] [id number]-JH-Whirieo DOrdered By: Danny Becker on 07-01-2024 Vitamin D 25-Hydroxy 58.5 ng/mL [facility] Comment on above: Vitamin D 25(OH) Sta tus Range Deficiency <20 ng/mL (50nmol/L) Insufficiency 20 - 30 ng/mL (50 - 75 nmol/L) Sufficiency 30 - 100 ng/mL (75 - 250 nmol/L) Toxicity >100 ng/mL (>250 nmol/L) Bedside Glucoseon 06-01-2024 FINGERSTICK GLU 183 mg/dL High 74-106 [facility] Comment on above: Result Comment: JAZ WOODKACIE OF PATIENT CARE PER NURSING PROTOCOL Performed By: #### L 500.4050, L501.9985, L100.0500 #### [facility] [address] [place], [place], [address] Fluor Guidance for Spine Inj on 06-01-2024 Fluor Guidance for Spine Inj [facility] Imaging Services [address] [place] [address] Fluor Guidance for Spine Inj MR#: [id number] Acct: [id number] Name: RICHARD ROY Rep #: [id number] : 1945 M 78 From: Ravindra hogue MD PCP: Dr. Luis Caldera MD Status: [facility] Study: Fluor Guidance for Spine Inj Date of Exam: Exam# [id number] Ordering Dr: Kee Merritt MD [id number] PROCEDURE: Caudal block. DATE OF EXAMINATION: June 01, 2024. INDICATION: Male, 78 years old. Chronic low back pain. FLUOROSCOPY TIME (if supplied): (2.6 seconds) minutes/seconds. 0.72 mGy. One image was submitted. RAD/Fluor Guidance for Spine Inj IMPRESSION: Intraoperative imaging provided for caudal block. Electronically Signed: Ravindra Sierra MD at 12:53 EST , CC: Dr. Luis Caldera MD; Dr. Kee Merritt MD Wic Site Coordinator: Signed Normal [facility] Operative Reporton Operative Report [facility] Medical Records Department [address] [place] [address] Operative Report 06/01/24 1141 MR#: [id number] Acct: [id number] Name: RICHARD ROY Rep #: [id number] : 1945 78 From: Kee Merritt MD PCP: Dr. Luis Caldera MD Status:[facility] Location: [facility] Operative Report (Standard) Operative Information [...] 2 weeks for reevaluation. 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 Luis Caldera MD; Dr. Kee Merritt MD Signed Normal [facility] CBC-Complete Blood Cnt No Di ffon 04-14-2024 Erythrocyte distribution width (RBC) [Ratio] 14.6 % Normal 11.6-14.6 [facility] Comment on above: Order Comment: 215.2 Performed By: #### L 501.9985, L500.4050, L100.0500 #### [facility] [address] [place], [address] Hematocrit (Bld) [Volume fraction] 39.3 % Low 40-54 [facility] Comment on above: Order Comment: 215.2 Performed By: #### L 501.9985, L500.4050, L100.0500 #### [facility] [address] [place], [address] Hemoglobin (Bld) [Mass/Vol] 12.3 g/dL Low 13.0-16. 5 [facility] Comment on above: Order Comment: 215.2 Performed By: #### L 501.9985, L500.4050, L100.0500 #### [facility] [address] [place], [address] MCH (RBC) [Entitic mass] 27.3 pg Normal 27.0-32.0 [facility] Comment on above: Order Comment: 215.2 Performed By: #### L 501.9985, L500.4050, L100.0500 #### [facility] [address] [place], [address] MCHC (RBC) [Mass/Vol] 31.3 g/dL Low 32-36 [facility] Comment on above: Order Comment: 215.2 Performed By: #### L 501.9985, L500.4050, L100.0500 #### [facility] [address] [place], [address] MCV (RBC) [Entitic vol] 87.3 fL Normal 80-[address] [facility] Comment on above: Order Comment: 215.2 Performed By: #### L 501.9985, L500.4050, L100.0500 #### [facility] [address] [place], [address] Platelet mean volume (Bld) [Entitic vol] 9.6 fL Normal 6.2-12.0 [facility] Comment on above: Order Comment: 215.2 Performed By: #### L 501.9985, L500.4050, L100.0500 #### [facility] [address] [place], [address] Platelets (Bld) [#/Vol] 224 10*3/uL Normal 150-450 [facility] Comment on above: Order Comment: 215.2 Performed By: #### L 501.9985, L500.4050, L100.0500 #### [facility] [address] [place], [address] RBC (Bld) [#/Vol] 4.50 10*6/uL Low 4.6-6.2 [facility] Comment on above: Order Comment: 215.2 Performed By: #### L 501.9985, L500.4050, L100.0500 #### [facility] [address] [place], [address] RDW SD 46.6 fl High 35.1-43.9 [facility] Comment on above: Order Comment: 215.2 Performed By: #### L 501.9985, L500.4050, L100.0500 #### [facility] [address] [place], [address] WBC (Bld) [#/Vol] 8.5 10*3/uL Normal 4.4-11.0 [facility] Comment on above: Order Comment: 215.2 Performed By: #### L 501.9985, L500.4050, L100.0500 #### [facility] [address] [place], [address] Comprehensive Metabolic Prof ilon 04-14-2024 Albumin [Mass/Vol] 3.1 g/dL Low 3.2-5.0 [facility] Comment on above: Order Comment: 215.2 Performed By: #### L 501.9985, L500.4050, L100.0500 #### [facility] [address] [place], [address] Albumin/Globulin [Mass ratio] 1.0 {ratio} Normal 0.9-2.4 [facility] Comment on above: Order Comment: 215.2 Performed By: #### L 501.9985, L500.4050, L100.0500 #### [facility] [address] [place], [address] ALK P 115 U/L Normal 45-117 [facility] Comment on above: Order Comment: 215.2 Performed By: #### L 501.9985, L500.4050, L100.0500 #### [facility] [address] [place], [address] ALT [Catalytic activity/Vol] 17 U/L Normal 16-61 [facility] Comment on above: Order Comment: 215.2 Performed By: #### L 501.9985, L500.4050, L100.0500 #### [facility] [address] [place], [address] AST [Catalytic activity/Vol] 5 U/L Low 15-37 [facility] Comment on above: Order Comment: 215.2 Performed By: #### L 501.9985, L500.4050, L100.0500 #### [facility] [address] [place], [address] Bilirubin [Mass/Vol] 0.60 mg/dL Normal 0.20-1.00 [facility] Comment on above: Order Comment: 215.2 Result Comment: For patients on eltrombopag therapy, use of Dimension Sylvester TBIL is not recommended. Performed By: #### L 501.9985, L500.4050, L100.0500 #### [facility] [address] [place], [address] BUN/CRE 21.2 RATIO High 10-20 [facility] Comment on above: Order Comment: 215.2 Performed By: #### L 501.9985, L500.4050, L100.0500 #### [facility] [address] [place], [address] CA,Total 9.6 mg/dL Normal 8.5-10.1 [facility] Comment on above: Order Comment: 215.2 Performed By: #### L 501.9985, L500.4050, L100.0500 #### [facility] [address] [place], [address] Chloride [Moles/Vol] 108 mmol/L High 98-107 [facility] Comment on above: Order Comment: 215.2 Performed By: #### L 501.9985, L500.4050, L100.0500 #### [facility] [address] [place], [address] CO2 [Moles/Vol] 29.0 mmol/L Normal 21.0-32.0 [facility] Comment on above: Order Comment: 215.2 Performed By: #### L 501.9985, L500.4050, L100.0500 #### [facility] [address] [place], [address] Creatinine [Mass/Vol] 1.13 mg/dL Normal 0.70-1.30 [facility] Comment on above: Order Comment: 215.2 Result Comment: The validity of the calculated GFR GFRAA in patients over 70 years has not been determined. Clinical correlation is essential. Performed By: #### L 501.9985, L500.4050, L100.0500 #### [facility] [address] [place], [address] EST GFR - AA 81 mL/min Normal >60 [facility] Comment on above: Order Comment: 215.2 Result Comment: Afri can [place] GFR Calc Performed By: #### L 501.9985, L500.4050, L100.0500 #### [facility] [address] [place], [address] GAP 4 Low 5-15 [facility] Comment on above: Order Comment: 215.2 Performed By: #### L 501.9985, L500.4050, L100.0500 #### [facility] [address] [place], [address] GFR/1.73 sq M.predicted among non-blacks MDRD (S/P/Bld) [Vol rate/Area] 67 mL/min/{1.73_m2} Normal >60 [facility] Comment on above: Order Comment: 215.2 Result Comment: Non- GFR Calc Performed By: #### L 501.9985, L500.4050, L100.0500 #### [facility] [address] [place], [address] Globulin (S) [Mass/Vol] 3.0 g/dL Normal 2.2-4.2 [facility] Comment on above: Order Comment: 215.2 Performed By: #### L 501.9985, L500.4050, L100.0500 #### [facility] [address] [place], [address] Glucose [Mass/Vol] 128 mg/dL High 74-106 [facility] Comment on above: Order Comment: 215.2 Result Comment: Fast ing Glucose result greater than or equal to 126 mg/dL suggests DIABETES MELLITUS per A.D.A. criteria. Performed By: #### L 501.9985, L500.4050, L100.0500 #### [facility] [address] [place], [address] Potassium [Moles/Vol] 4.2 mmol/L Normal 3.5-5.1 [facility] Comment on above: Order Comment: 215.2 Performed By: #### L 501.9985, L500.4050, L100.0500 #### [facility] [address] [place], [address] Sodium [Moles/Vol] 141 mmol/L Normal 136-145 [facility] Comment on above: Order Comment: 215.2 Performed By: #### L 501.9985, L500.4050, L100.0500 #### [facility] [address] [place], [address] T PROT 6.1 g/dL Low 6.4-8.2 [facility] Comment on above: Order Comment: 215.2 Performed By: #### L 501.9985, L500.4050, L100.0500 #### [facility] [address] [place], [address] Urea nitrogen [Mass/Vol] 24 mg/dL High 7-18 [facility] Comment on above: Order Comment: 215.2 Performed By: #### L 501.9985, L500.4050, L100.0500 #### [facility] [address] [place], [address] Hemoglobin A1con 04-14-2024 HbA1c (Bld) [Mass fraction] 6.5 % High 3.8-5.6 [facility] Comment on above: Order Comment: 215.2 Result Comment: Norm al < 5.7 % Prediabetic 5.7 - 6.4 % Diabetic >or= 6.5 % Please note range changes. Performed By: #### L 501.9985, L500.4050, L100.0500 #### [facility] [address] [place], [address] Urine Cultureon 04-11-2024 URC Culture exhibits no growth. Normal [facility] Comment on above: Performed By: #### L 500.4050, L501.9985, L100.0500 #### [facility] [address] [place], [address] CBC-Complete Blood Cnt No Di ffon 04-10-2024 Erythrocyte distribution width (RBC) [Ratio] 14.5 % Normal 11.6-14.6 [facility] Comment on above: Order Comment: 215.2 Performed By: #### L 500.4050, L501.9985, L100.0500 #### [facility] [address] [place], [address] Hematocrit (Bld) [Volume fraction] 41.3 % Normal 40-54 [facility] Comment on above: Order Comment: 215.2 Performed By: #### L 500.4050, L501.9985, L100.0500 #### [facility] [address] [place], [address] Hemoglobin (Bld) [Mass/Vol] 13.1 g/dL Normal 13.0-16. 5 [facility] Comment on above: Order Comment: 215.2 Performed By: #### L 500.4050, L501.9985, L100.0500 #### [facility] [address] [place], [address] MCH (RBC) [Entitic mass] 27.3 pg Normal 27.0-32.0 [facility] Comment on above: Order Comment: 215.2 Performed By: #### L 500.4050, L501.9985, L100.0500 #### [facility] [address] [place], [address] MCHC (RBC) [Mass/Vol] 31.7 g/dL Low 32-36 [facility] Comment on above: Order Comment: 215.2 Performed By: #### L 500.4050, L501.9985, L100.0500 #### [facility] [address] [place], [address] MCV (RBC) [Entitic vol] 86.0 fL Normal 80-[address] [facility] Comment on above: Order Comment: 215.2 Performed By: #### L 500.4050, L501.9985, L100.0500 #### [facility] [address] [place], [address] Platelet mean volume (Bld) [Entitic vol] 9.4 fL Normal 6.2-12.0 [facility] Comment on above: Order Comment: 215.2 Performed By: #### L 500.4050, L501.9985, L100.0500 #### [facility] [address] [place], [address] Platelets (Bld) [#/Vol] 256 10*3/uL Normal 150-450 [facility] Comment on above: Order Comment: 215.2 Performed By: #### L 500.4050, L501.9985, L100.0500 #### [facility] [address] [place], [address] RBC (Bld) [#/Vol] 4.80 10*6/uL Normal 4.6-6.2 [facility] Comment on above: Order Comment: 215.2 Performed By: #### L 500.4050, L501.9985, L100.0500 #### [facility] [address] [place], [address] RDW SD 45.0 fl High 35.1-43.9 [facility] Comment on above: Order Comment: 215.2 Performed By: #### L 500.4050, L501.9985, L100.0500 #### [facility] [address] [place], [address] WBC (Bld) [#/Vol] 10.8 10*3/uL Normal 4.4-11.0 [facility] Comment on above: Order Comment: 215.2 Performed By: #### L 500.4050, L501.9985, L100.0500 #### [facility] [address] [place], [address] Urinalysis, Completeon 04-10 BACTERIA 0 SEEN Normal None Seen [facility] Comment on above: Order Comment: 215.2 Performed By: #### L 500.4050, L501.9985, L100.0500 #### [facility] [address] [place], [address] EPI,SQUAMOUS 0 SEEN Normal 0-5 [facility] Comment on above: Order Comment: 215.2 Performed By: #### L 500.4050, L501.9985, L100.0500 #### [facility] [address] [place], [address] Mucus Ql (Urine sed) 0 SEEN Normal [facility] Comment on above: Order Comment: 215.2 Performed By: #### L 500.4050, L501.9985, L100.0500 #### [facility] [address] [place], [address] RBC 0 SEEN Normal 0-5 [facility] Comment on above: Order Comment: 215.2 Performed By: #### L 500.4050, L501.9985, L100.0500 #### [facility] [address] [place], [address] WBC 0 SEEN Normal 0-5 [facility] Comment on above: Order Comment: 215.2 Performed By: #### L 500.4050, L501.9985, L100.0500 #### [facility] [address] [place], [address] CBC-Complete Blood Cnt No Di ffon 04-09-2024 Erythrocyte distribution width (RBC) [Ratio] 14.6 % Normal 11.6-14.6 [facility] Comment on above: Order Comment: 215.2 Performed By: #### L 300.3900 #### [facility] [address] [place], [address] Hematocrit (Bld) [Volume fraction] 39.6 % Low 40-54 [facility] Comment on above: Order Comment: 215.2 Performed By: #### L 300.3900 #### [facility] [address] [place], [address] Hemoglobin (Bld) [Mass/Vol] 12.4 g/dL Low 13.0-16. 5 [facility] Comment on above: Order Comment: 215.2 Performed By: #### L 300.3900 #### [facility] [address] [place], [address] MCH (RBC) [Entitic mass] 27.0 pg Normal 27.0-32.0 [facility] Comment on above: Order Comment: 215.2 Performed By: #### L 300.3900 #### [facility] [address] [place], [address] MCHC (RBC) [Mass/Vol] 31.3 g/dL Low 32-36 [facility] Comment on above: Order Comment: 215.2 Performed By: #### L 300.3900 #### [facility] [address] [place], [address] MCV (RBC) [Entitic vol] 86.3 fL Normal 80-[address] [facility] Comment on above: Order Comment: 215.2 Performed By: #### L 300.3900 #### [facility] [address] [place], [address] Platelet mean volume (Bld) [Entitic vol] 9.4 fL Normal 6.2-12.0 [facility] Comment on above: Order Comment: 215.2 Performed By: #### L 300.3900 #### [facility] [address] [place], [address] Platelets (Bld) [#/Vol] 223 10*3/uL Normal 150-450 [facility] Comment on above: Order Comment: 215.2 Performed By: #### L 300.3900 #### [facility] [address] [place], [address] RBC (Bld) [#/Vol] 4.59 10*6/uL Low 4.6-6.2 [facility] Comment on above: Order Comment: 215.2 Performed By: #### L 300.3900 #### [facility] [address] [place], [address] RDW SD 45.5 fl High 35.1-43.9 [facility] Comment on above: Order Comment: 215.2 Performed By: #### L 300.3900 #### [facility] [address] [place], [address] WBC (Bld) [#/Vol] 11.9 10*3/uL High 4.4-11.0 [facility] Comment on above: Order Comment: 215.2 Performed By: #### L 300.3900 #### [facility] [address] [place], [address] CBC W/Diff, Automatedon 09-2 Absolute Lymph 2.54 X10 3/uL Normal 0.83-4.51 [facility] Comment on above: Performed By: #### L 500.4050, L501.9985, L100.0500 #### [facility] [address] [place], [address] Absolute Neut 7.3 X10 3/uL Normal 2.0-7.7 [facility] Comment on above: Performed By: #### L 500.4050, L501.9985, L100.0500 #### [facility] [address] [place], [address] Basophils/100 WBC (Bld) 0.3 % Normal 0-[address] [facility] Comment on above: Performed By: #### L 500.4050, L501.9985, L100.0500 #### [facility] [address] [place], [address] Eosinophils/100 WBC (Bld) 3.7 % Normal 0-5 [facility] Comment on above: Performed By: #### L 500.4050, L501.9985, L100.0500 #### [facility] [address] [place], [address] Erythrocyte distribution width (RBC) [Ratio] 14.6 % Normal 11.6-14.6 [facility] Comment on above: Performed By: #### L 500.4050, L501.9985, L100.0500 #### [facility] [address] [place], [address] Hematocrit (Bld) [Volume fraction] 40.4 % Normal 40-54 [facility] Comment on above: Performed By: #### L 500.4050, L501.9985, L100.0500 #### [facility] [address] [place], [address] Hemoglobin (Bld) [Mass/Vol] 12.7 g/dL Low 13.0-16. 5 [facility] Comment on above: Performed By: #### L 500.4050, L501.9985, L100.0500 #### [facility] [address] [place], [address] IG% 2.000 High 0.0-0.9 [facility] Comment on above: Result Comment: IG% - Immature Granulocytes (promyelocytes, myelocytes and metamyelocytes) > 1% indicates that a LEFT SHIFT is Present. Performed By: #### L 500.4050, L501.9985, L100.0500 #### [facility] [address] [place], [address] Lymphocytes/100 WBC (Bld) 22.8 % Normal 19-41 [facility] Comment on above: Performed By: #### L 500.4050, L501.9985, L100.0500 #### [facility] [address] [place], [address] MCH (RBC) [Entitic mass] 27.3 pg Normal 27.0-32.0 [facility] Comment on above: Performed By: #### L 500.4050, L501.9985, L100.0500 #### [facility] [address] [place], [address] MCHC (RBC) [Mass/Vol] 31.4 g/dL Low 32-36 [facility] Comment on above: Performed By: #### L 500.4050, L501.9985, L100.0500 #### [facility] [address] [place], [address] MCV (RBC) [Entitic vol] 86.7 fL Normal 80-[address] [facility] Comment on above: Performed By: #### L 500.4050, L501.9985, L100.0500 #### [facility] [address] [place], [address] Monocytes/100 WBC (Bld) 6.3 % Normal 0-[address] [facility] Comment on above: Performed By: #### L 500.4050, L501.9985, L100.0500 #### [facility] [address] [place], [address] Neutrophils/100 WBC (Bld) 64.9 % Normal 47-70 [facility] Comment on above: Performed By: #### L 500.4050, L501.9985, L100.0500 #### [facility] [address] [place], [address] Nucleated RBC (Bld) [#/Vol] 0 10*3/uL Normal 0-5 [facility] Comment on above: Performed By: #### L 500.4050, L501.9985, L100.0500 #### [facility] [address] [place], [address] Platelet mean volume (Bld) [Entitic vol] 9.3 fL Normal 6.2-12.0 [facility] Comment on above: Performed By: #### L 500.4050, L501.9985, L100.0500 #### [facility] [address] [place], [address] Platelets (Bld) [#/Vol] 243 10*3/uL Normal 150-450 [facility] Comment on above: Performed By: #### L 500.4050, L501.9985, L100.0500 #### [facility] [address] [place], [address] RBC (Bld) [#/Vol] 4.66 10*6/uL Normal 4.6-6.2 [facility] Comment on above: Performed By: #### L 500.4050, L501.9985, L100.0500 #### [facility] [address] [place], [address] RDW SD 45.9 fl High 35.1-43.9 [facility] Comment on above: Performed By: #### L 500.4050, L501.9985, L100.0500 #### [facility] [address] [place], [address] WBC (Bld) [#/Vol] 11.2 10*3/uL High 4.4-11.0 [facility] Comment on above: Performed By: #### L 500.4050, L501.9985, L100.0500 #### [facility] [address] [place], [address] Comprehensive Metabolic Prof [facility] 04-08-2024 Albumin [Mass/Vol] 3.1 g/dL Low 3.2-5.0 [facility] Comment on above: Performed By: #### L 500.4050, L501.9985, L100.0500 #### [facility] [address] [place], [address] Albumin/Globulin [Mass ratio] 1.1 {ratio} Normal 0.9-2.4 [facility] Comment on above: Performed By: #### L 500.4050, L501.9985, L100.0500 #### [facility] [address] [place], [address] ALK P 97 U/L Normal 45-117 [facility] Comment on above: Performed By: #### L 500.4050, L501.9985, L100.0500 #### [facility] [address] [place], [address] ALT [Catalytic activity/Vol] 18 U/L Normal 16-61 [facility] Comment on above: Performed By: #### L 500.4050, L501.9985, L100.0500 #### [facility] [address] [place], [address] AST [Catalytic activity/Vol] 7 U/L Low 15-37 [facility] Comment on above: Performed By: #### L 500.4050, L501.9985, L100.0500 #### [facility] [address] [place], [address] Bilirubin [Mass/Vol] 0.40 mg/dL Normal 0.20-1.00 [facility] Comment on above: Result Comment: For patients on eltrombopag therapy, use of Dimension Sylvester TBIL is not recommended. Performed By: #### L 500.4050, L501.9985, L100.0500 #### [facility] [address] [place], [address] BUN/CRE 29.1 RATIO High 10-20 [facility] Comment on above: Performed By: #### L 500.4050, L501.9985, L100.0500 #### [facility] [address] [place], [address] CA,Total 9.3 mg/dL Normal 8.5-10.1 [facility] Comment on above: Performed By: #### L 500.4050, L501.9985, L100.0500 #### [facility] [address] [place], [address] Chloride [Moles/Vol] 106 mmol/L Normal 98-107 [facility] Comment on above: Performed By: #### L 500.4050, L501.9985, L100.0500 #### [facility] [address] [place], [address] CO2 [Moles/Vol] 29.0 mmol/L Normal 21.0-32.0 [facility] Comment on above: Performed By: #### L 500.4050, L501.9985, L100.0500 #### [facility] [address] [place], [address] Creatinine [Mass/Vol] 1.10 mg/dL Normal 0.70-1.30 [facility] Comment on above: Result Comment: The validity of the calculated GFR GFRAA in patients over 70 years has not been determined. Clinical correlation is essential. Performed By: #### L 500.4050, L501.9985, L100.0500 #### [facility] [address] [place], [address] EST GFR - AA 84 mL/min Normal >60 [facility] Comment on above: Result Comment: Afri can Citizen [place] GFR Calc Performed By: #### L 500.4050, L501.9985, L100.0500 #### [facility] [address] [place], [address] GAP 5 Normal 5-15 [facility] Comment on above: Performed By: #### L 500.4050, L501.9985, L100.0500 #### [facility] [address] [place], [address] GFR/1.73 sq M.predicted among non-blacks MDRD (S/P/Bld) [Vol rate/Area] 69 mL/min/{1.73_m2} Normal >60 [facility] Comment on above: Result Comment: Non- GFR Calc Performed By: #### L 500.4050, L501.9985, L100.0500 #### [facility] [address] [place], [address] Globulin (S) [Mass/Vol] 2.8 g/dL Normal 2.2-4.2 [facility] Comment on above: Performed By: #### L 500.4050, L501.9985, L100.0500 #### [facility] [address] [place], [address] Glucose [Mass/Vol] 133 mg/dL High 74-106 [facility] Comment on above: Result Comment: Fast ing Glucose result greater than or equal to 126 mg/dL suggests DIABETES MELLITUS per A.D.A. criteria. Performed By: #### L 500.4050, L501.9985, L100.0500 #### [facility] [address] [place], [address] Potassium [Moles/Vol] 3.8 mmol/L Normal 3.5-5.1 [facility] Comment on above: Performed By: #### L 500.4050, L501.9985, L100.0500 #### [facility] [address] [place], [address] Sodium [Moles/Vol] 140 mmol/L Normal 136-145 [facility] Comment on above: Performed By: #### L 500.4050, L501.9985, L100.0500 #### [facility] [address] [place], [address] T PROT 5.9 g/dL Low 6.4-8.2 [facility] Comment on above: Performed By: #### L 500.4050, L501.9985, L100.0500 #### [facility] [address] [place], [address] Urea nitrogen [Mass/Vol] 32 mg/dL High 7-18 [facility] Comment on above: Performed By: #### L 500.4050, L501.9985, L100.0500 #### [facility] [address] [place], [address] Lipid Profileon 04-08-2024 Cholesterol [Mass/Vol] 100 mg/dL Normal 200 [facility] Comment on above: Result Comment: <200 mg/dL Desirable 200-240 mg/dL Borderline >240 mg/dL High Risk Performed By: #### L 500.4050, L501.9985, L100.0500 #### [facility] [address] [place], [address] Cholesterol in HDL [Mass/Vol] 34 mg/dL Low [facility] Comment on above: Result Comment: The drugs N-Acetylcysteine and Metamizole may falsely depress this assay. Reference Range HDL <40 mg/dL Low HDL Cholesterol HDL >or= 60 mg/dL High HDL Cholesterol Performed By: #### L 500.4050, L501.9985, L100.0500 #### [facility] [address] [place], [address] Cholesterol in LDL [Mass/Vol] 36 mg/dL Normal 0-130 [facility] Comment on above: Performed By: #### L 500.4050, L501.9985, L100.0500 #### [facility] [address] [place], [address] Cholesterol in VLDL [Mass/Vol] 30 mg/dL Normal 5-40 [facility] Comment on above: Performed By: #### L 500.4050, L501.9985, L100.0500 #### [facility] [address] [place], [address] Triglyceride [Mass/Vol] 148 mg/dL Normal [facility] Comment on above: Result Comment: The drugs N-Acetylcysteine and Metamizole may falsely depress this assay. Serum Triglycerides Reference Interval Normal <150 mg/dL Borderline high 150 - 199 mg/dL High 200 - 499 mg/dL Very High > or = 500 mg/dL Performed By: #### L 500.4050, L501.9985, L100.0500 #### [facility] [address] [place], [address] Cardiology Visit Reporton Cardiology Visit Report [facility] [address] [place], [place] [id number] OFFICE VISIT Date of Service: 04/07/24 MR#: [id number] Acct: [id number] Name: RICHARD ROY Rep #: [id number] : 1945 Provider: Dr. Olga Lidia Rasheed MD Age/Sex: 78/M [place] [facility] [place] Status: Signed HPI [facility] History of Present Illness Details: This gentleman [...] bisacodyl 10 mg rectal suppository 10 mg CA DAILY PRN constipation 05/30/23 04/07/24 History loperamide [...] Hypertension Father Heart disease Social History housing: prison current occupational status: retired Smoking Status: Never smoker alcohol intake: never substance use type: does not use ROS Const Const: Negative for fatigue, weakness or headache(s) ENT ENT: Negative for headache(s), dizziness, Nosebleed/epistaxis or balance problems Cardio Chest Pain: No Palpitations: No Edema: None Muscle aches with walking: None Resp Respi (more content not included)... Normal [facility] Protime w/INR Fingerstickon 03-02-2024 INR Coag (PPP) [Relative time] 1.7 {INR} Normal [facility] Comment on above: Result Comment: Crit ical Value > 4.0 Performed By: #### L 500.4050, L501.9985, L100.0500 #### [facility] [address] [place], [address] Protime Coagsen 18.4 SEC High 11.7-14.9 [facility] Comment on above: Performed By: #### L 500.4050, L501.9985, L100.0500 #### [facility] [address] [place], [address] Prothrombin Time w/INRon INR Coag (PPP) [Relative time] 2.9 {INR} Normal [facility] Comment on above: Order Comment: 215.2 Performed By: #### L 300.3900 #### [facility] [address] [place], [address] PT Coag (PPP) [Time] 30.1 s High 11.7-14.9 [facility] Comment on above: Order Comment: 215.2 Performed By: #### L 300.3900 #### [facility] [address] [place], [address] Prothrombin Time w/INRon INR Coag (PPP) [Relative time] 2.2 {INR} Normal [facility] Comment on above: Performed By: #### L 500.4050, L501.9985, L100.0500 #### [facility] [address] [place], [address] PT Coag (PPP) [Time] 24.6 s High 11.7-14.9 [facility] Comment on above: Performed By: #### L 500.4050, L501.9985, L100.0500 #### [facility] Laboratory [address] [place], [address] Protime w/INR Fingerstickon 02-17-2024 INR Coag (PPP) [Relative time] 1.8 {INR} Normal [facility] Comment on above: Result Comment: Crit ical Value > 4.0 Performed By: #### L 500.4050, L501.9985, L100.0500 #### [facility] Laboratory [address] [place], [address] Protime Coagsen 19.6 SEC High 11.7-14.9 [facility] Comment on above: Performed By: #### L [id number], [id number], L100.0500 #### [facility] Laboratory [address] [place], [address] Prothrombin Time w/INRon INR Coag (PPP) [Relative time] 2.6 {INR} Normal [facility] Comment on above: Order Comment: 215.2 Performed By: #### L 300.3900 #### [facility] [address] [place], [address] PT Coag (PPP) [Time] 27.9 s High 11.7-14.9 [facility] Comment on above: Order Comment: 215.2 Performed By: #### L 300.3900 #### [facility] [address] [place], [address] Prothrombin Time w/INRon INR Coag (PPP) [Relative time] 3.5 {INR} Normal [facility] Comment on above: Order Comment: 215.2 Performed By: #### L 300.3900 #### [facility] Laboratory [address] [place], [address] PT Coag (PPP) [Time] 34.9 s High 11.7-14.9 [facility] Comment on above: Order Comment: 215.2 Performed By: #### L 300.3900 #### [facility] [address] [place], [address] Prothrombin Time w/INRon INR Coag (PPP) [Relative time] 3.3 {INR} Normal [facility] Comment on above: Order Comment: 215.2 Performed By: #### L [id number], L501.9985, L100.0500 #### [facility] [address] [place], [address] PT Coag (PPP) [Time] 33.5 s High 11.7-14.9 [facility] Comment on above: Order Comment: 215.2 Performed By: #### L [id number], L501.9985, L100.0500 #### [facility] [address] [place], [address] Protime w/INR Fingerstickon 02-03-2024 INR Coag (PPP) [Relative time] 2.6 {INR} Normal [facility] Comment on above: Result Comment: Crit ical Value > 4.0 Performed By: #### L [id number] #### [facility] Laboratory [address] [place], [address] Protime Coagsen 26.7 SEC High 11.7-14.9 [facility] Comment on above: Performed By: #### L 300.3900 #### [facility] Laboratory [address] [place], [address] Protime w/INR Fingerstickon 01-27-2024 INR Coag (PPP) [Relative time] 2.1 {INR} Normal [facility] Comment on above: Result Comment: Crit ical Value > 4.0 Performed By: #### L [id number], L501.9985, L100.0500 #### [facility] Laboratory [address] [place], [address] Protime Coagsen 22.1 SEC High 11.7-14.9 [facility] Comment on above: Performed By: #### L [id number], [id number], L100.0500 #### [facility] Laboratory [address] [place], [address] Prothrombin Time w/INRon INR Coag (PPP) [Relative time] 2.3 {INR} Normal [facility] Comment on above: Performed By: #### L [id number], L501.9985, L100.0500 #### [facility] Laboratory [address] [place], [address] PT Coag (PPP) [Time] 25.4 s High 11.7-14.9 [facility] Comment on above: Performed By: #### L [id number], L501.9985, L100.0500 #### [facility] [address] [place], [address] Vitamin D,25 Hydroxyon 01-15 Vitamin D 25-OH 91.1 ng/mL Normal [facility] Comment on above: Order Comment: 215.2 Result Comment: Laure min D 25(OH) Status Range Deficiency <20 ng/mL (50nmol/L) Insufficiency 20 - 30 ng/mL (50 - 75 nmol/L) Sufficiency 30 - 100 ng/mL (75 - 250 nmol/L) Toxicity >100 ng/mL (>250 nmol/L) Performed By: #### L 300.3900 #### [facility] [address] [place], [address] CBC-Complete Blood Cnt No Di ffon 01-15-2024 Erythrocyte distribution width (RBC) [Ratio] 14.4 % Normal 11.6-14.6 [facility] Comment on above: Order Comment: 215.2 Performed By: #### L 300.3900 #### [facility] [address] [place], [address] Hematocrit (Bld) [Volume fraction] 40.5 % Normal 40-54 [facility] Comment on above: Order Comment: 215.2 Performed By: #### L 300.3900 #### [facility] [address] [place], [address] Hemoglobin (Bld) [Mass/Vol] 13.0 g/dL Normal 13.0-16. 5 [facility] Comment on above: Order Comment: 215.2 Performed By: #### L 300.3900 #### [facility] [address] [place], [address] MCH (RBC) [Entitic mass] 27.6 pg Normal 27.0-32.0 [facility] Comment on above: Order Comment: 215.2 Performed By: #### L 300.3900 #### [facility] [address] [place], [address] MCHC (RBC) [Mass/Vol] 32.1 g/dL Normal 32-36 [facility] Comment on above: Order Comment: 215.2 Performed By: #### L 300.3900 #### [facility] [address] [place], [address] MCV (RBC) [Entitic vol] 86.0 fL Normal 80-[address] [facility] Comment on above: Order Comment: 215.2 Performed By: #### L 300.3900 #### [facility] [address] [place], [address] Platelet mean volume (Bld) [Entitic vol] 9.7 fL Normal 6.2-12.0 [facility] Comment on above: Order Comment: 215.2 Performed By: #### L 300.3900 #### [facility] [address] [place], [address] Platelets (Bld) [#/Vol] 228 10*3/uL Normal 150-450 [facility] Comment on above: Order Comment: 215.2 Performed By: #### L 300.3900 #### [facility] [address] [place], [address] RBC (Bld) [#/Vol] 4.71 10*6/uL Normal 4.6-6.2 [facility] Comment on above: Order Comment: 215.2 Performed By: #### L 300.3900 #### [facility] [address] [place], [address] RDW SD 44.4 fl High 35.1-43.9 [facility] Comment on above: Order Comment: 215.2 Performed By: #### L 300.3900 #### [facility] [address] [place], [address] WBC (Bld) [#/Vol] 8.8 10*3/uL Normal 4.4-11.0 [facility] Comment on above: Order Comment: 215.2 Performed By: #### L 300.3900 #### [facility] [address] [place], [address] Comprehensive Metabolic Prof ilon 01-15-2024 Albumin [Mass/Vol] 3.2 g/dL Normal 3.2-5.0 [facility] Comment on above: Order Comment: 215.2 Performed By: #### L 300.3900 #### [facility] [address] [place], [address] Albumin/Globulin [Mass ratio] 1.0 {ratio} Normal 0.9-2.4 [facility] Comment on above: Order Comment: 215.2 Performed By: #### L 300.3900 #### [facility] [address] [place], [address] ALK P 105 U/L Normal 45-117 [facility] Comment on above: Order Comment: 215.2 Performed By: #### L 300.3900 #### [facility] [address] [place], [address] ALT [Catalytic activity/Vol] 27 U/L Normal 16-61 [facility] Comment on above: Order Comment: 215.2 Performed By: #### L 300.3900 #### [facility] [address] [place], [address] AST [Catalytic activity/Vol] 8 U/L Low 15-37 [facility] Comment on above: Order Comment: 215.2 Performed By: #### L 300.3900 #### [facility] [address] [place], [address] Bilirubin [Mass/Vol] 0.40 mg/dL Normal 0.20-1.00 [facility] Comment on above: Order Comment: 215.2 Result Comment: For patients on eltrombopag therapy, use of Dimension Sylvester TBIL is not recommended. Performed By: #### L 300.3900 #### [facility] [address] [place], [address] BUN/CRE 22.0 RATIO High 10-20 [facility] Comment on above: Order Comment: 215.2 Performed By: #### L 300.3900 #### [facility] [address] [place], [address] CA,Total 9.1 mg/dL Normal 8.5-10.1 [facility] Comment on above: Order Comment: 215.2 Performed By: #### L 300.3900 #### [facility] [address] [place], [address] Chloride [Moles/Vol] 105 mmol/L Normal 98-107 [facility] Comment on above: Order Comment: 215.2 Performed By: #### L 300.3900 #### [facility] [address] [place], [address] CO2 [Moles/Vol] 30.0 mmol/L Normal 21.0-32.0 [facility] Comment on above: Order Comment: 215.2 Performed By: #### L 300.3900 #### [facility] [address] [place], [address] Creatinine [Mass/Vol] 1.27 mg/dL Normal 0.70-1.30 [facility] Comment on above: Order Comment: 215.2 Result Comment: The validity of the calculated GFR GFRAA in patients over 70 years has not been determined. Clinical correlation is essential. Performed By: #### L 300.3900 #### [facility] [address] [place], [address] EST GFR - AA 71 mL/min Normal >60 [facility] Comment on above: Order Comment: 215.2 Result Comment: Afri can Citizen [place] GFR Calc Performed By: #### L 300.3900 #### [facility] [address] [place], [address] GAP 6 Normal 5-15 [facility] Comment on above: Order Comment: 215.2 Performed By: #### L 300.3900 #### [facility] [address] [place], [address] GFR/1.73 sq M.predicted among non-blacks MDRD (S/P/Bld) [Vol rate/Area] 59 mL/min/{1.73_m2} Low >60 [facility] Comment on above: Order Comment: 215.2 Result Comment: Non- GFR Calc Performed By: #### L 300.3900 #### [facility] [address] [place], [address] Globulin (S) [Mass/Vol] 3.1 g/dL Normal 2.2-4.2 [facility] Comment on above: Order Comment: 215.2 Performed By: #### L 300.3900 #### [facility] [address] [place], [address] Glucose [Mass/Vol] 150 mg/dL High 74-106 [facility] Comment on above: Order Comment: 215.2 Result Comment: Fast ing Glucose result greater than or equal to 126 mg/dL suggests DIABETES MELLITUS per A.D.A. criteria. Performed By: #### L 300.3900 #### [facility] [address] [place], [address] Potassium [Moles/Vol] 4.1 mmol/L Normal 3.5-5.1 [facility] Comment on above: Order Comment: 215.2 Performed By: #### L 300.3900 #### [facility] [address] [place], [address] Sodium [Moles/Vol] 141 mmol/L Normal 136-145 [facility] Comment on above: Order Comment: 215.2 Performed By: #### L 300.3900 #### [facility] [address] [place], [address] T PROT 6.3 g/dL Low 6.4-8.2 [facility] Comment on above: Order Comment: 215.2 Performed By: #### L 300.3900 #### [facility] [address] [place], [address] Urea nitrogen [Mass/Vol] 28 mg/dL High 7-18 [facility] Comment on above: Order Comment: 215.2 Performed By: #### L 300.3900 #### [facility] [address] [place], [address] Hemoglobin A1con 01-15-2024 HbA1c (Bld) [Mass fraction] 6.5 % High 3.8-5.6 [facility] Comment on above: Order Comment: 215.2 Result Comment: Norm al < 5.7 % Prediabetic 5.7 - 6.4 % Diabetic >or= 6.5 % Please note range changes. Performed By: #### L 300.3900 #### [facility] [address] [place], [address] Prothrombin Time w/INRon INR Coag (PPP) [Relative time] 2.5 {INR} Normal [facility] Comment on above: Order Comment: 215.2 Performed By: #### L 300.3900 #### [facility] [address] [place], [address] PT Coag (PPP) [Time] 27.2 s High 11.7-14.9 [facility] Comment on above: Order Comment: 215.2 Performed By: #### L 300.3900 #### [facility] [address] [place], [address] Thyroid Stim Hormone (TSH)on 01-15-2024 TSH 1.55 uIU/mL Normal 0.358-3.74 [facility] Comment on above: Order Comment: 215.2 Performed By: #### L 300.3900 #### [facility] [address] [place], [address] Protime w/INR Fingerstickon 01-14-2024 INR Coag (PPP) [Relative time] 3.8 {INR} Normal [facility] Comment on above: Result Comment: Crit ical Value > 4.0 Performed By: #### L 9200.0000 #### [facility] [address] [place], [place], [address] Protime Coagsen 37.5 SEC High 11.7-14.9 [facility] Comment on above: Performed By: #### L 9200.0000 #### [facility] [address] [place], [place], [address] Prothrombin Time w/INRon INR Coag (PPP) [Relative time] 3.9 {INR} Normal [facility] Comment on above: Order Comment: 215.2 Performed By: #### L 300.3900 #### [facility] [address] [place], [place], [address] ([address]) PT Coag (PPP) [Time] 37.6 s High 11.7-14.9 [facility] Comment on above: Order Comment: 215.2 Performed By: #### L 300.3900 #### [facility] [address] [place], [place], [address] Laboratory - CoagulationOrde red By: Walter Becker on 10-25-2023 INR Coag (Bld) [Relative time] 3.2 {INR} [facility] PT Coag (PPP) [Time] 32.9 s 11.7-14.9 [facility] Laboratory - CoagulationOrde red By: Walter Becker on 10-16-2023 INR Coag (Bld) [Relative time] 1.9 {INR} [facility] PT Coag (PPP) [Time] 21.6 s 11.7-14.9 [facility] Basophil percentageOrdered B y: Walter Becker on 10-08-2023 Cholesterol [Mass/Vol] 107 mg/dL <200 [facility] Comment on above: <200 mg/dL Desirable 200-240 mg/dL Borderline >240 mg/dL High Risk Triglyceride [Mass/Vol] 133 mg/dL <[address] [facility] Comment on above: The drugs N-Acetylcy steine and Metamizole may falsely depress this assay.Serum Triglycerides Reference Interval Normal <150 mg/dL Borderline high 150 - 199 mg/dL High 200 - 499 mg/dL Very High > or = 500 mg/dL Laboratory - Chemistry and C hemistry - challengeOrdered By: Walter Becker on 10-08-2023 ALT [Catalytic activity/Vol] 18 U/L 16-61 [facility] Cholesterol in HDL [Mass/Vol] 35 mg/dL >40 [facility] Comment on above: The drugs N-Acetylcy steine and Metamizole may falsely depress this assay. Reference Range HDL <40 mg/dL Low HDL Cholesterol HDL >or= 60 mg/dL High HDL Cholesterol Cholesterol in LDL [Mass/Vol] 45 mg/dL 0-130 [facility] CK [Catalytic activity/Vol] 59 U/L 39-308 [facility] No Panel InformationOrdered By: Walter Becker on 10-08-2023 VLDL Cholesterol 27 mg/dL 5-40 [facility] Thin prep Papanicolaou smear with manual screeningOrdered By: Walter Becker on 10-08-2023 Thin prep Papanicolaou smear with manual screening 10 U/L 15-37 [facility] Capillary blood internationa l normalized ratio (INR)Ordered By: Walter Becker on 10-04-2023 INR Coag (BldC) [Relative time] 2.2 [facility] Comment on above: Critical Value > 4.0 Whole blood prothrombin time Ordered By: Walter Becker on 10-04-2023 PT Coag (Bld) [Time] 22.6 s 11.7-14.9 [facility] Capillary blood internationa l normalized ratio (INR)Ordered By: Walter Becker on 10-01-2023 INR Coag (BldC) [Relative time] 1.9 [facility] Comment on above: Critical Value > 4.0 Whole blood prothrombin time Ordered By: Walter Becker on 10-01-2023 PT Coag (Bld) [Time] 19.9 s 11.7-14.9 [facility] Basophil percentageOrdered B y: Walter Becker on 09-25-2023 Bilirubin [Mass/Vol] 0.30 mg/dL 0.20-1.00 [facility] Comment on above: For patients on eltr ombopag therapy, use of Dimension Sylvester TBIL is not recommended. Chloride [Moles/Vol] 105 mmol/L 98-107 [facility] Glucose [Mass/Vol] 125 mg/dL 74-106 [facility] Comment on above: Fasting Glucose resu lt from 100 to 125 mg/dL suggests IMPAIRED HOMEOSTASIS per A.D.A. criteria. Hemoglobin (Bld) [Mass/Vol] 12.6 g/dL 13.0-16. 5 [facility] Potassium [Moles/Vol] 4.2 mmol/L 3.5-5.1 [facility] Protein [Mass/Vol] 6.2 g/dL 6.4-8.2 [facility] Sodium [Moles/Vol] 140 mmol/L 136-145 [facility] WBC (Bld) [#/Vol] 10.6 10*3/uL 4.4-11.0 [facility] Determination of erythrocyte mean corpuscular volume (MCV)Ordered By: Walter Becker on 09-25-2023 MCV (RBC) [Entitic vol] 85.8 fL 80-[address] [facility] Erythrocyte distribution wid th ratioOrdered By: Walter Becker on 09-25-2023 Erythrocyte distribution width (RBC) [Ratio] 13.7 % 11.6-14.6 [facility] Erythrocyte distribution wid th standard deviationOrdered By: Walter Becker on 09-25-2023 Erythrocyte distribution width (RBC) [Entitic vol] 42.4 fL 35.1-43.9 [facility] Hematocrit Auto (Bld) [Volum e fraction]Ordered By: Walter Becker on 09-25-2023 Hematocrit (Bld) [Volume fraction] 39.4 % 40-54 [facility] Laboratory - Chemistry and C hemistry - challengeOrdered By: Walter Becker on 09-25-2023 Albumin/Globulin [Mass ratio] 1.1 {ratio} 0.9-2.4 [facility] ALP [Catalytic activity/Vol] 107 U/L 45-117 [facility] ALT [Catalytic activity/Vol] 19 U/L 16-61 [facility] CO2 [Moles/Vol] 29.0 mmol/L 21.0-32.0 [facility] Globulin (S) [Mass/Vol] 3.0 g/dL 2.2-4.[address] [facility] Urea nitrogen/Creatinine [Mass ratio] 29.8 mg/mg 10-20 [facility] Laboratory - CoagulationOrde red By: Walter Becker on 09-25-2023 INR Coag (Bld) [Relative time] 2.8 {INR} [facility] PT Coag (PPP) [Time] 28.9 s 11.7-14.9 [facility] Laboratory - Hematology and Cell countsOrdered By: Walter Becker on 09-25-2023 MCH (RBC) [Entitic mass] 27.5 pg 27.0-32.0 [facility] MCHC (RBC) [Mass/Vol] 32.0 g/dL 32-36 [facility] Platelet mean volume (Bld) [Entitic vol] 9.9 fL 6.2-12.0 [facility] Platelets (Bld) [#/Vol] 235 10*3/uL 150-450 [facility] No Panel InformationOrdered By: Walter Becker on 09-25-2023 Estimated GFR (MDRD) Amer 75 mL/min >60 [facility] Comment on above: GFR Calc Estimated GFR (MDRD) Non-Af Amer 62 mL/min >60 [facility] Comment on above: Non- GFR Calc RBC Auto (Bld) [#/Vol]Ordere d By: Walter Becker on 09-25-2023 RBC (Bld) [#/Vol] 4.59 10*6/uL 4.6-6.2 [facility] Serum or plasma calcium antoine urement (mass/volume)Ordered By: Walter Becker on 09-25-2023 Calcium [Mass/Vol] 9.6 mg/dL 8.5-10.1 [facility] Serum or plasma creatinine m easurement (mass/volume)Ordered By: Walter Becker on 09-25-2023 Creatinine [Mass/Vol] 1.21 mg/dL 0.70-1.30 [facility] Comment on above: The validity of the calculated GFR & GFRAA in patients over 70 years has not been determined. Clinical correlation is essential. Serum or plasma urea nitroge n measurement (mass/volume)Ordered By: Walter Becker on 09-25-2023 Urea nitrogen [Mass/Vol] 36 mg/dL 7-18 [facility] Thin prep Papanicolaou smear with manual screeningOrdered By: Walter Becker on 09-25-2023 Thin prep Papanicolaou smear with manual screening 3.2 g/dL 3.2-5.0 [facility] Thin prep Papanicolaou smear with manual screening 11 U/L 15-37 [facility] Thin prep Papanicolaou smear with manual screening 6 5-15 [facility] Laboratory - CoagulationOrde red By: Walter Becker on 09-18-2023 INR Coag (Bld) [Relative time] 1.6 {INR} [facility] PT Coag (PPP) [Time] 18.7 s 11.7-14.9 [facility] Capillary blood internationa l normalized ratio (INR)Ordered By: Walter Becker on 09-13-2023 INR Coag (BldC) [Relative time] 3.1 [facility] Comment on above: Critical Value > 4.0 Whole blood prothrombin time Ordered By: Walter Becker on 09-13-2023 PT Coag (Bld) [Time] 33.3 s 11.7-14.9 [facility] Capillary blood internationa l normalized ratio (INR)Ordered By: Walter Becker on 09-12-2023 INR Coag (BldC) [Relative time] 1.7 [facility] Comment on above: Critical Value > 4.0 Whole blood prothrombin time Ordered By: Walter Becker on 09-12-2023 PT Coag (Bld) [Time] 19.2 s 11.7-14.9 [facility] Capillary blood internationa l normalized ratio (INR)Ordered By: Walter Becker on 09-09-2023 INR Coag (BldC) [Relative time] 2.9 [facility] Comment on above: Critical Value > 4.0 Whole blood prothrombin time Ordered By: Walter Becker on 09-09-2023 PT Coag (Bld) [Time] 31.5 s 11.7-14.9 [facility] Laboratory - CoagulationOrde red By: Walter Becker on 08-26-2023 INR Coag (Bld) [Relative time] 2.2 {INR} [facility] PT Coag (PPP) [Time] 24.7 s 11.7-14.9 [facility] Capillary blood internationa l normalized ratio (INR)Ordered By: Walter Becker on 08-19-2023 INR Coag (BldC) [Relative time] 2.7 [facility] Comment on above: Critical Value > 4.0 Whole blood prothrombin time Ordered By: Walter Becker on 08-19-2023 PT Coag (Bld) [Time] 29.2 s 11.7-14.9 [facility] Capillary blood internationa l normalized ratio (INR)Ordered By: Walter Becker on 08-12-2023 INR Coag (BldC) [Relative time] 2.5 [facility] Comment on above: Critical Value > 4.0 Whole blood prothrombin time Ordered By: Walter Becker on 08-12-2023 PT Coag (Bld) [Time] 26.7 s 11.7-14.9 [facility] Capillary blood internationa l normalized ratio (INR)Ordered By: Walter Becker on 08-05-2023 INR Coag (BldC) [Relative time] 1.9 [facility] Comment on above: Critical Value > 4.0 Whole blood prothrombin time Ordered By: Walter Becker on 08-05-2023 PT Coag (Bld) [Time] 20.7 s 11.7-14.9 [facility] Laboratory - CoagulationOrde red By: Walter Becker on 07-29-2023 INR Coag (Bld) [Relative time] 2.3 {INR} [facility] Comment on above: Critical Value > 4.0 Whole blood prothrombin time Ordered By: Walter Becker on 07-29-2023 PT Coag (Bld) [Time] 25.0 s 11.7-14.9 [facility] Laboratory - CoagulationOrde red By: Walter Becker on 07-22-2023 INR Coag (Bld) [Relative time] 2.0 {INR} [facility] Comment on above: Critical Value > 4.0 Whole blood prothrombin time Ordered By: Walter Becker on 07-22-2023 PT Coag (Bld) [Time] 22.4 s 11.7-14.9 [facility] Laboratory - CoagulationOrde red By: Walter Becker on 07-19-2023 INR Coag (Bld) [Relative time] 3.4 {INR} [facility] Comment on above: Critical Value > 4.0 Whole blood prothrombin time Ordered By: Walter Becker on 07-19-2023 PT Coag (Bld) [Time] 36.2 s 11.7-14.9 [facility] Laboratory - CoagulationOrde red By: Walter Becker on 07-17-2023 INR Coag (Bld) [Relative time] 3.0 {INR} [facility] Comment on above: Critical Value > 4.0 Whole blood prothrombin time Ordered By: Walter Becker on 07-17-2023 PT Coag (Bld) [Time] 32.2 s 11.7-14.9 [facility] Laboratory - CoagulationOrde red By: Walter Becker on 07-10-2023 INR Coag (Bld) [Relative time] 2.3 {INR} [facility] Comment on above: Critical Value > 4.0 Whole blood prothrombin time Ordered By: Walter Becker on 07-10-2023 PT Coag (Bld) [Time] 25.4 s 11.7-14.9 [facility] Laboratory - CoagulationOrde red By: Walter Becker on 07-03-2023 INR Coag (Bld) [Relative time] 1.5 {INR} [facility] Comment on above: Critical Value > 4.0 Whole blood prothrombin time Ordered By: Walter Becker on 07-03-2023 PT Coag (Bld) [Time] 16.5 s 11.7-14.9 [facility] Laboratory - CoagulationOrde red By: Walter Becker on 06-26-2023 INR Coag (Bld) [Relative time] 2.3 {INR} [facility] Comment on above: Critical Value > 4.0 Whole blood prothrombin time Ordered By: Walter Becker on 06-26-2023 PT Coag (Bld) [Time] 24.7 s 11.7-14.9 [facility] Laboratory - CoagulationOrde red By: Walter Becker on 06-25-2023 INR Coag (Bld) [Relative time] 3.2 {INR} [facility] Comment on above: Critical Value > 4.0 Whole blood prothrombin time Ordered By: Walter Becker on 06-25-2023 PT Coag (Bld) [Time] 34.3 s 11.7-14.9 [facility] Laboratory - CoagulationOrde red By: Walter Becker on 06-24-2023 INR Coag (Bld) [Relative time] 3.4 {INR} [facility] Comment on above: Critical Value > 4.0 Whole blood prothrombin time Ordered By: Walter Becker on 06-24-2023 PT Coag (Bld) [Time] 36.4 s 11.7-14.9 [facility] Laboratory - CoagulationOrde red By: Walter Becker on 06-17-2023 INR Coag (Bld) [Relative time] 2.4 {INR} [facility] Comment on above: Critical Value > 4.0 Whole blood prothrombin time Ordered By: Walter Becker on 06-17-2023 PT Coag (Bld) [Time] 26.1 s 11.7-14.9 [facility] Laboratory - CoagulationOrde red By: Walter Becker on 06-10-2023 INR Coag (Bld) [Relative time] 1.4 {INR} [facility] Comment on above: Critical Value > 4.0 Whole blood prothrombin time Ordered By: Walter Becker on 06-10-2023 PT Coag (Bld) [Time] 15.9 s 11.7-14.9 [facility] Glucose Glucometer (BldC) [M ass/Vol]Ordered By: Kee Merritt on 06-03-2023 Glucose [Mass/Vol] 130 mg/dL 74-106 [facility] Comment on above: MANAGEMENT OF PATIEN T CARE PER NURSING PROTOCOL Laboratory - CoagulationOrde red By: Walter Becker on 05-20-2023 INR Coag (Bld) [Relative time] 2.6 {INR} [facility] Comment on above: Critical Value > 4.0 No Panel InformationOrdered By: Walter Becker on 05-20-2023 2.6 [facility] Whole blood prothrombin time Ordered By: Walter Becker on 05-20-2023 PT Coag (Bld) [Time] 27.6 s 11.7-14.9 [facility] Basophil percentageOrdered B y: Walter Becker on 05-15-2023 Basophil percentage 0 SEEN /hpf 0-5 [facility] Basophil percentage 114 mg/dL 74-106 [facility] Basophil percentage 5.9 g/dL 6.4-8.2 [facility] Basophil percentage 0.40 mg/dL 0.20-1.00 [facility] Basophil percentage 140 mmol/L 136-145 [facility] Basophil percentage 4.1 mmol/L 3.5-5.1 [facility] Basophil percentage 105 mmol/L 98-107 [facility] Basophils (Bld) [#/Vol] 10.4 10*3/uL 4.4-11.0 [facility] Bilirubin [Mass/Vol] 0.40 mg/dL 0.20-1.00 [facility] Comment on above: For patients on eltr ombopag therapy, use of Dimension Sylvester TBIL is not recommended. Chloride [Moles/Vol] 105 mmol/L 98-107 [facility] Glucose [Mass/Vol] 114 mg/dL 74-106 [facility] Comment on above: Fasting Glucose resu lt from 100 to 125 mg/dL suggests IMPAIRED HOMEOSTASIS per A.D.A. criteria. Potassium [Moles/Vol] 4.1 mmol/L 3.5-5.1 [facility] Protein [Mass/Vol] 5.9 g/dL 6.4-8.2 [facility] Sodium [Moles/Vol] 140 mmol/L 136-145 [facility] WBC (Bld) [#/Vol] 10.4 10*3/uL 4.4-11.0 [facility] Bilirubin Test strip Ql (U)O rdered By: Walter Becker on 05-15-2023 Bilirubin Ql (U) Negative Negative [facility] Blood erythrocytes count (nu mber/volume)Ordered By: Walter Becker on 05-15-2023 RBC (Bld) [#/Vol] 4.37 10*6/uL 4.6-6.2 [facility] Blood hemoglobin measurement (mass/volume)Ordered By: Walter Becker on 05-15-2023 Hemoglobin (Bld) [Mass/Vol] 11.6 g/dL 13.0-16. 5 [facility] Blood platelet mean volumeOr dered By: Walter Becker on 05-15-2023 Platelet mean volume (Bld) [Entitic vol] 9.4 fL 6.2-12.0 [facility] Culture, urineOrdered By: Horner on 05-15-2023 Bacteria identified Cx Nom (U) Culture exhibits no growth. [facility] Determination of erythrocyte mean corpuscular volume (MCV)Ordered By: Walter Becker on 05-15-2023 MCV (RBC) [Entitic vol] 84.7 fL 80-[address] [facility] Hematocrit Auto (Bld) [Volum e fraction]Ordered By: Walter Becker on 05-15-2023 Hematocrit (Bld) [Volume fraction] 37.0 % 40-54 [facility] Ketones Test strip Ql (U)Ord ered By: Walter Becker on 05-15-2023 Ketones Ql (U) Negative Negative [facility] Laboratory - Chemistry and C hemistry - challengeOrdered By: Walter Becker on 05-15-2023 ALP [Catalytic activity/Vol] 97 U/L 45-117 [facility] ALT [Catalytic activity/Vol] 21 U/L 16-61 [facility] CO2 [Moles/Vol] 28.0 mmol/L 21.0-32.0 [facility] Globulin (S) [Mass/Vol] 3.0 g/dL 2.2-4.[address] [facility] Urea nitrogen/Creatinine [Mass ratio] 30.7 mg/mg 10-20 [facility] Laboratory - Hematology and Cell countsOrdered By: Walter Becker on 05-15-2023 Erythrocyte distribution width (RBC) [Entitic vol] 43.3 fL 35.1-43.9 [facility] Erythrocyte distribution width (RBC) [Ratio] 14.1 % 11.6-14.6 [facility] MCH (RBC) [Entitic mass] 26.5 pg 27.0-32.0 [facility] MCHC Auto (RBC) [Mass/Vol]Or dered By: Walter Becker on 05-15-2023 MCHC (RBC) [Mass/Vol] 31.4 g/dL 32-36 [facility] Mucus LM Ql (Urine sed)Order ed By: Walter Becker on 05-15-2023 Mucus Ql (Urine sed) 0 SEEN /hpf [facility] Nitrite Test strip Ql (U)Ord ered By: Walter Becker on 05-15-2023 Nitrite Ql (U) Negative Negative [facility] No Panel InformationOrdered By: Walter Becker on 05-15-2023 Estimated GFR (MDRD) Amer 96 mL/min >60 [facility] Comment on above: GFR Calc Estimated GFR (MDRD) Non-Af Amer 79 mL/min >60 [facility] Comment on above: Non- GFR Calc 26.5 pg 27.0-32.0 [facility] 14.1 % 11.6-14.6 [facility] 43.3 fl 35.1-43.9 [facility] 79 mL/min >60 [facility] 96 mL/min >60 [facility] 30.7 RATIO 10-20 [facility] 3.0 g/dL 2.2-4.2 [facility] 97 U/L 45-117 [facility] 21 U/L 16-61 [facility] 28.0 mmol/L 21.0-32.0 [facility] Platelets bldOrdered By: Crystal Becker on 05-15-2023 Platelets (Bld) [#/Vol] 256 10*3/uL 150-450 [facility] Protein Test strip Ql (U)Ord ered By: Walter Becker on 05-15-2023 Protein Ql (U) Negative Negative [facility] Serum or plasma albumin antoine urement (mass/volume)Ordered By: Walter Becker on 05-15-2023 Albumin [Mass/Vol] 2.9 g/dL 3.2-5.0 [facility] Serum or plasma albumin/glob ulin mass ratioOrdered By: Walter Becker on 05-15-2023 Albumin/Globulin [Mass ratio] 1.0 {ratio} 0.9-2.4 [facility] Serum or plasma calcium antoine urement (mass/volume)Ordered By: Walter Becker on 05-15-2023 Calcium [Mass/Vol] 8.8 mg/dL 8.5-10.1 [facility] Serum or plasma creatinine m easurement (mass/volume)Ordered By: Walter Becker on 05-15-2023 Creatinine [Mass/Vol] 0.98 mg/dL 0.70-1.30 [facility] Comment on above: The validity of the calculated GFR & GFRAA in patients over 70 years has not been determined. Clinical correlation is essential. Serum or plasma urea nitroge n measurement (mass/volume)Ordered By: Walter Becker on 05-15-2023 Urea nitrogen [Mass/Vol] 30 mg/dL 7-18 [facility] Squamous epithelial cells de tection in urine sediment by light microscopyOrdered By: Walter Becker on 05-15-2023 Epithelial cells.squamous LM Ql (Urine sed) 0 SEEN /hpf 0-5 [facility] Thin prep Papanicolaou smear with manual screeningOrdered By: Walter Becker on 05-15-2023 Thin prep Papanicolaou smear with manual screening 9 U/L 15-37 [facility] Thin prep Papanicolaou smear with manual screening 7 5-15 [facility] Urine blood detectionOrdered By: Walter Becker on 05-15-2023 RBC Ql (U) Negative Negative [facility] RBC Ql (U) 0 SEEN /hpf 0-5 [facility] Urine clarityOrdered By: Crystal Becker on 05-15-2023 Clarity (U) Clear Clear [facility] Urine color determinationOrd ered By: Walter Becker on 05-15-2023 Color (U) Yellow Yellow [facility] Urine glucose detectionOrder ed By: Walter Becker on 05-15-2023 Glucose Ql (U) Normal mg/dl Normal [facility] Urine leukocyte esterase det ection by dipstickOrdered By: Walter Becker on 05-15-2023 Leukocyte esterase Test strip Ql (U) Negative Negative [facility] Urine pHOrdered By: Walter floyd on 05-15-2023 pH (U) 5.0 [pH] 5.0 - 8.0 [facility] Urine sediment bacteria coun t by microscopy (number/high power field)Ordered By: Walter Becker on 05-15-2023 Bacteria LM.HPF (Urine sed) [#/Area] 0 /[HPF] None Seen [facility] Urine specific gravity measu rementOrdered By: Walter Becker on 05-15-2023 Specific gravity (U) [Rel density] 1.010 1.002-1.03 0 [facility] Urobilinogen Auto test strip Ql (U)Ordered By: Walter Becker on 05-15-2023 Urobilinogen Ql (U) Normal mg/dl Normal [facility] Basophil percentageOrdered B y: Walter Becker on 05-06-2023 Basophil percentage 135 mg/dL 74-106 [facility] Basophil percentage 5.9 g/dL 6.4-8.2 [facility] Basophil percentage 0.40 mg/dL 0.20-1.00 [facility] Basophil percentage 140 mmol/L 136-145 [facility] Basophil percentage 3.7 mmol/L 3.5-5.1 [facility] Basophil percentage 106 mmol/L 98-107 [facility] Basophils (Bld) [#/Vol] 9.4 10*3/uL 4.4-11.0 [facility] Bilirubin [Mass/Vol] 0.40 mg/dL 0.20-1.00 [facility] Comment on above: For patients on eltr ombopag therapy, use of Dimension Sylvester TBIL is not recommended. Chloride [Moles/Vol] 106 mmol/L 98-107 [facility] Glucose [Mass/Vol] 135 mg/dL 74-106 [facility] Comment on above: Fasting Glucose resu lt greater than or equal to 126 mg/dL suggests DIABETES MELLITUS per A.D.A. criteria. Potassium [Moles/Vol] 3.7 mmol/L 3.5-5.1 [facility] Protein [Mass/Vol] 5.9 g/dL 6.4-8.2 [facility] Sodium [Moles/Vol] 140 mmol/L 136-145 [facility] WBC (Bld) [#/Vol] 9.4 10*3/uL 4.4-11.0 [facility] Blood erythrocytes count (nu mber/volume)Ordered By: Walter Becker on 05-06-2023 RBC (Bld) [#/Vol] 4.49 10*6/uL 4.6-6.2 [facility] Blood hemoglobin measurement (mass/volume)Ordered By: Walter Becker on 05-06-2023 Hemoglobin (Bld) [Mass/Vol] 12.0 g/dL 13.0-16. 5 [facility] Blood platelet mean volumeOr dered By: Walter Becker on 05-06-2023 Platelet mean volume (Bld) [Entitic vol] 9.5 fL 6.2-12.0 [facility] Determination of erythrocyte mean corpuscular volume (MCV)Ordered By: Walter Becker on 05-06-2023 MCV (RBC) [Entitic vol] 85.7 fL 80-[address] [facility] Hematocrit Auto (Bld) [Volum e fraction]Ordered By: Walter Becker on 05-06-2023 Hematocrit (Bld) [Volume fraction] 38.5 % 40-54 [facility] INR in Blood by Coagulation assayOrdered By: Walter Becker on 05-06-2023 INR Coag (Bld) [Relative time] 2.5 {INR} [facility] Laboratory - Chemistry and C hemistry - challengeOrdered By: Walter Becker on 05-06-2023 ALP [Catalytic activity/Vol] 93 U/L 45-117 [facility] ALT [Catalytic activity/Vol] 23 U/L 16-61 [facility] CO2 [Moles/Vol] 29.0 mmol/L 21.0-32.0 [facility] Globulin (S) [Mass/Vol] 2.9 g/dL 2.2-4.[address] [facility] Urea nitrogen/Creatinine [Mass ratio] 25.8 mg/mg 10-20 [facility] Laboratory - CoagulationOrde red By: Walter Becker on 05-06-2023 PT Coag (PPP) [Time] 27.5 s 11.7-14.9 [facility] Laboratory - Hematology and Cell countsOrdered By: Walter Becker on 05-06-2023 Erythrocyte distribution width (RBC) [Entitic vol] 44.4 fL 35.1-43.9 [facility] Erythrocyte distribution width (RBC) [Ratio] 14.2 % 11.6-14.6 [facility] MCH (RBC) [Entitic mass] 26.7 pg 27.0-32.0 [facility] MCHC Auto (RBC) [Mass/Vol]Or dered By: Walter Becker on 05-06-2023 MCHC (RBC) [Mass/Vol] 31.2 g/dL 32-36 [facility] No Panel InformationOrdered By: Walter Becker on 05-06-2023 Estimated GFR (MDRD) Amer 102 mL/min >60 [facility] Comment on above: GFR Calc Estimated GFR (MDRD) Non-Af Amer 84 mL/min >60 [facility] Comment on above: Non- GFR Calc 26.7 pg 27.0-32.0 [facility] 14.2 % 11.6-14.6 [facility] 44.4 fl 35.1-43.9 [facility] 27.5 SECONDS 11.7-14.9 [facility] 84 mL/min >60 [facility] 102 mL/min >60 [facility] 25.8 RATIO 10- [facility] 2.9 g/dL 2.2-4.2 [facility] 93 U/L 45-117 [facility] 23 U/L 16-61 [facility] 29.0 mmol/L 21.0-32.0 [facility] Platelets bldOrdered By: Crystal Becker on 05-06-2023 Platelets (Bld) [#/Vol] 238 10*3/uL 150-450 [facility] Serum or plasma albumin antoine urement (mass/volume)Ordered By: Walter Becker on 05-06-2023 Albumin [Mass/Vol] 3.0 g/dL 3.2-5.0 [facility] Serum or plasma albumin/glob ulin mass ratioOrdered By: Walter Becker on 05-06-2023 Albumin/Globulin [Mass ratio] 1.0 {ratio} 0.9-2.4 [facility] Serum or plasma calcium antoine urement (mass/volume)Ordered By: Walter Becker on 05-06-2023 Calcium [Mass/Vol] 9.1 mg/dL 8.5-10.1 [facility] Serum or plasma creatinine m easurement (mass/volume)Ordered By: Walter Becker on 05-06-2023 Creatinine [Mass/Vol] 0.93 mg/dL 0.70-1.30 [facility] Comment on above: The validity of the calculated GFR & GFRAA in patients over 70 years has not been determined. Clinical correlation is essential. Serum or plasma urea nitroge n measurement (mass/volume)Ordered By: Walter Becker on 05-06-2023 Urea nitrogen [Mass/Vol] 24 mg/dL 7-18 [facility] Thin prep Papanicolaou smear with manual screeningOrdered By: Walter Becker on 05-06-2023 Thin prep Papanicolaou smear with manual screening 10 U/L 15-37 [facility] Thin prep Papanicolaou smear with manual screening 5 5-15 [facility] Laboratory - CoagulationOrde red By: Walter Beckre on 04-29-2023 INR Coag (Bld) [Relative time] 2.8 {INR} [facility] Comment on above: Critical Value > 4.0 No Panel InformationOrdered By: Walter Becker on 04-29-2023 2.8 [facility] Whole blood prothrombin time Ordered By: Walter Becker on 04-29-2023 PT Coag (Bld) [Time] 29.6 s 11.7-14.9 [facility] Laboratory - CoagulationOrde red By: Walter Becker on 04-15-2023 INR Coag (Bld) [Relative time] 2.5 {INR} [facility] Comment on above: Critical Value > 4.0 No Panel InformationOrdered By: Walter Becker on 04-15-2023 2.5 [facility] Whole blood prothrombin time Ordered By: Walter Becker on 04-15-2023 PT Coag (Bld) [Time] 27.3 s 11.7-14.9 [facility] Basophil percentageOrdered B y: Walter Becker on 04-09-2023 Basophil percentage 115 mg/dL 74-106 [facility] Basophil percentage 5.8 g/dL 6.4-8.2 [facility] Basophil percentage 0.40 mg/dL 0.20-1.00 [facility] Basophil percentage 141 mmol/L 136-145 [facility] Basophil percentage 3.9 mmol/L 3.5-5.1 [facility] Basophil percentage 106 mmol/L 98-107 [facility] Basophils (Bld) [#/Vol] 10.2 10*3/uL 4.4-11.0 [facility] Bilirubin [Mass/Vol] 0.40 mg/dL 0.20-1.00 [facility] Comment on above: For patients on eltr ombopag therapy, use of Dimension Sylvester TBIL is not recommended. Chloride [Moles/Vol] 106 mmol/L 98-107 [facility] Glucose [Mass/Vol] 115 mg/dL 74-106 [facility] Comment on above: Fasting Glucose resu lt from 100 to 125 mg/dL suggests IMPAIRED HOMEOSTASIS per A.D.A. criteria. Potassium [Moles/Vol] 3.9 mmol/L 3.5-5.1 [facility] Protein [Mass/Vol] 5.8 g/dL 6.4-8.2 [facility] Sodium [Moles/Vol] 141 mmol/L 136-145 [facility] WBC (Bld) [#/Vol] 10.2 10*3/uL 4.4-11.0 [facility] Blood erythrocytes count (nu mber/volume)Ordered By: Walter Becker on 04-09-2023 RBC (Bld) [#/Vol] 4.16 10*6/uL 4.6-6.2 [facility] Blood hemoglobin measurement (mass/volume)Ordered By: Walter Becker on 04-09-2023 Hemoglobin (Bld) [Mass/Vol] 11.3 g/dL 13.0-16. 5 [facility] Blood platelet mean volumeOr dered By: Walter Becker on 04-09-2023 Platelet mean volume (Bld) [Entitic vol] 9.4 fL 6.2-12.0 [facility] Determination of erythrocyte mean corpuscular volume (MCV)Ordered By: Walter Becker on 04-09-2023 MCV (RBC) [Entitic vol] 86.5 fL 80-[address] [facility] Hematocrit Auto (Bld) [Volum e fraction]Ordered By: Walter Becker on 04-09-2023 Hematocrit (Bld) [Volume fraction] 36.0 % 40-54 [facility] Laboratory - Chemistry and C hemistry - challengeOrdered By: Walter Becker on 04-09-2023 ALP [Catalytic activity/Vol] 105 U/L 45-117 [facility] ALT [Catalytic activity/Vol] 22 U/L 16-61 [facility] CO2 [Moles/Vol] 31.0 mmol/L 21.0-32.0 [facility] Globulin (S) [Mass/Vol] 2.9 g/dL 2.2-4.[address] [facility] Urea nitrogen/Creatinine [Mass ratio] 29.9 mg/mg 10-20 [facility] Laboratory - Hematology and Cell countsOrdered By: Walter Becker on 04-09-2023 Erythrocyte distribution width (RBC) [Entitic vol] 46.8 fL 35.1-43.9 [facility] Erythrocyte distribution width (RBC) [Ratio] 14.6 % 11.6-14.6 [facility] MCH (RBC) [Entitic mass] 27.2 pg 27.0-32.0 [facility] MCHC Auto (RBC) [Mass/Vol]Or dered By: Walter Becker on 04-09-2023 MCHC (RBC) [Mass/Vol] 31.4 g/dL 32-36 [facility] No Panel InformationOrdered By: Walter Becker on 04-09-2023 Estimated GFR (MDRD) Amer 101 mL/min >60 [facility] Comment on above: GFR Calc Estimated GFR (MDRD) Non-Af Amer 84 mL/min >60 [facility] Comment on above: Non- GFR Calc 27.2 pg 27.0-32.0 [facility] 14.6 % 11.6-14.6 [facility] 46.8 fl 35.1-43.9 [facility] 84 mL/min >60 [facility] 101 mL/min >60 [facility] 29.9 RATIO 10-20 [facility] 2.9 g/dL 2.2-4.2 [facility] 105 U/L 45-117 [facility] 22 U/L 16-61 [facility] 31.0 mmol/L 21.0-32.0 [facility] Platelets bldOrdered By: Crystal Becker on 04-09-2023 Platelets (Bld) [#/Vol] 229 10*3/uL 150-450 [facility] Serum or plasma albumin antoine urement (mass/volume)Ordered By: Walter Becker on 04-09-2023 Albumin [Mass/Vol] 2.9 g/dL 3.2-5.0 [facility] Serum or plasma albumin/glob ulin mass ratioOrdered By: Walter Becker on 04-09-2023 Albumin/Globulin [Mass ratio] 1.0 {ratio} 0.9-2.4 [facility] Serum or plasma calcium antoine urement (mass/volume)Ordered By: Walter Becker on 04-09-2023 Calcium [Mass/Vol] 9.0 mg/dL 8.5-10.1 [facility] Serum or plasma creatinine m easurement (mass/volume)Ordered By: Walter Becker on 04-09-2023 Creatinine [Mass/Vol] 0.94 mg/dL 0.70-1.30 [facility] Comment on above: The validity of the calculated GFR & GFRAA in patients over 70 years has not been determined. Clinical correlation is essential. Serum or plasma urea nitroge n measurement (mass/volume)Ordered By: Walter Becker on 04-09-2023 Urea nitrogen [Mass/Vol] 28 mg/dL 7-18 [facility] Thin prep Papanicolaou smear with manual screeningOrdered By: Walter Becker on 04-09-2023 Thin prep Papanicolaou smear with manual screening 7 U/L 15-37 [facility] Thin prep Papanicolaou smear with manual screening 4 5-15 [facility] Laboratory - CoagulationOrde red By: Walter Becker on 04-08-2023 INR Coag (Bld) [Relative time] 2.4 {INR} [facility] Comment on above: Critical Value > 4.0 No Panel InformationOrdered By: Walter Becker on 04-08-2023 2.4 [facility] Whole blood prothrombin time Ordered By: Walter Becker on 04-08-2023 PT Coag (Bld) [Time] 25.9 s 11.7-14.9 [facility] Laboratory - CoagulationOrde red By: Walter Becker on 04-01-2023 INR Coag (Bld) [Relative time] 1.9 {INR} [facility] Comment on above: Critical Value > 4.0 No Panel InformationOrdered By: Walter Becker on 04-01-2023 1.9 [facility] Whole blood prothrombin time Ordered By: Walter Becker on 04-01-2023 PT Coag (Bld) [Time] 21.0 s 11.7-14.9 [facility] Laboratory - CoagulationOrde red By: Walter Becker on 03-25-2023 INR Coag (Bld) [Relative time] 1.9 {INR} [facility] Comment on above: Critical Value > 4.0 No Panel InformationOrdered By: Walter Becker on 03-25-2023 1.9 [facility] Whole blood prothrombin time Ordered By: Walter Becker on 03-25-2023 PT Coag (Bld) [Time] 21.1 s 11.7-14.9 [facility] INR in Blood by Coagulation assayOrdered By: Walter Becker on 03-11-2023 INR Coag (Bld) [Relative time] 2.4 {INR} [facility] Laboratory - CoagulationOrde red By: Walter Becker on 03-11-2023 PT Coag (PPP) [Time] 26.6 s 11.7-14.9 [facility] No Panel InformationOrdered By: Watler Becker on 03-11-2023 26.6 SECONDS 11.7-14.9 [facility] Whole blood hemoglobin A1c/t otal hemoglobin ratio (mass fraction)Ordered By: Walter Becker on 03-11-2023 HbA1c (Bld) [Mass fraction] 5.5 % 3.8-5.6 [facility] Comment on above: Normal < 5.7 % Predi abetic 5.7 - 6.4 % Diabetic >or= 6.5 % Please note range changes. Basophil percentageOrdered B y: Walter Becker on 03-04-2023 Basophil percentage 114 mg/dL 74-106 [facility] Basophil percentage 5.8 g/dL 6.4-8.2 [facility] Basophil percentage 0.30 mg/dL 0.20-1.00 [facility] Basophil percentage 139 mmol/L 136-145 [facility] Basophil percentage 4.0 mmol/L 3.5-5.1 [facility] Basophil percentage 106 mmol/L 98-107 [facility] Bilirubin [Mass/Vol] 0.30 mg/dL 0.20-1.00 [facility] Comment on above: For patients on eltr ombopag therapy, use of Dimension Sylvester TBIL is not recommended. Chloride [Moles/Vol] 106 mmol/L 98-107 [facility] Glucose [Mass/Vol] 114 mg/dL 74-106 [facility] Comment on above: Fasting Glucose resu lt from 100 to 125 mg/dL suggests IMPAIRED HOMEOSTASIS per A.D.A. criteria. Potassium [Moles/Vol] 4.0 mmol/L 3.5-5.1 [facility] Protein [Mass/Vol] 5.8 g/dL 6.4-8.2 [facility] Sodium [Moles/Vol] 139 mmol/L 136-145 [facility] Blood hemoglobin measurement (mass/volume)Ordered By: Walter Becker on 03-04-2023 Hemoglobin (Bld) [Mass/Vol] 10.6 g/dL 13.0-16. 5 [facility] Hematocrit Auto (Bld) [Volum e fraction]Ordered By: Walter Becker on 03-04-2023 Hematocrit (Bld) [Volume fraction] 35.7 % 40-54 [facility] INR in Blood by Coagulation assayOrdered By: Walter Becker on 03-04-2023 INR Coag (Bld) [Relative time] 2.3 {INR} [facility] Laboratory - Chemistry and C hemistry - challengeOrdered By: Walter Becker on 03-04-2023 ALP [Catalytic activity/Vol] 92 U/L - [facility] ALT [Catalytic activity/Vol] 25 U/L - [facility] CO2 [Moles/Vol] 28.0 mmol/L 21.0-32.0 [facility] Globulin (S) [Mass/Vol] 3.0 g/dL 2.2-4.[address] [facility] Urea nitrogen/Creatinine [Mass ratio] 33.0 mg/mg 05-03 [facility] Laboratory - CoagulationOrde red By: Walter Becker on 03-04-2023 PT Coag (PPP) [Time] 25.8 s 11.7-14.9 [facility] No Panel InformationOrdered By: Walter Becker on 03-04-2023 Estimated GFR (MDRD) Amer 88 mL/min >60 [facility] Comment on above: GFR Calc Estimated GFR (MDRD) Non-Af Amer 72 mL/min >60 [facility] Comment on above: Non- GFR Calc 25.8 SECONDS 11.7-14.9 [facility] 72 mL/min >60 [facility] 88 mL/min >60 [facility] 33.0 RATIO - [facility] 3.0 g/dL 2.2-4.2 [facility] 92 U/L - [facility] 25 U/L - [facility] 28.0 mmol/L 21.0-32.0 [facility] Serum or plasma albumin antoine urement (mass/volume)Ordered By: Walter Becker on 03-04-2023 Albumin [Mass/Vol] 2.8 g/dL 3.2-5.0 [facility] Serum or plasma albumin/glob ulin mass ratioOrdered By: Walter Becker on 03-04-2023 Albumin/Globulin [Mass ratio] 0.9 {ratio} 0.9-2.4 [facility] Serum or plasma calcium antoine urement (mass/volume)Ordered By: Walter Becker on 03-04-2023 Calcium [Mass/Vol] 9.1 mg/dL 8.5-10.1 [facility] Serum or plasma creatinine m easurement (mass/volume)Ordered By: Walter Becker on 03-04-2023 Creatinine [Mass/Vol] 1.06 mg/dL 0.70-1.30 [facility] Comment on above: The validity of the calculated GFR & GFRAA in patients over 70 years has not been determined. Clinical correlation is essential. Serum or plasma urea nitroge n measurement (mass/volume)Ordered By: Walter Becker on 03-04-2023 Urea nitrogen [Mass/Vol] 35 mg/dL 7-18 [facility] Thin prep Papanicolaou smear with manual screeningOrdered By: Walter Becker on 03-04-2023 Thin prep Papanicolaou smear with manual screening 12 U/L 15-37 [facility] Thin prep Papanicolaou smear with manual screening 5 5-15 [facility] Laboratory - CoagulationOrde red By: Walter Becker on 03-01-2023 INR Coag (Bld) [Relative time] 2.2 {INR} [facility] Comment on above: Critical Value > 4.0 No Panel InformationOrdered By: Walter Becker on 03-01-2023 2.2 [facility] Whole blood prothrombin time Ordered By: Walter Becker on 03-01-2023 PT Coag (Bld) [Time] 24.4 s 11.7-14.9 [facility] Blood hemoglobin measurement (mass/volume)Ordered By: Walter Becker on 02-25-2023 Hemoglobin (Bld) [Mass/Vol] 11.0 g/dL 13.0-16. 5 [facility] Hematocrit Auto (Bld) [Volum e fraction]Ordered By: Walter Becker on 02-25-2023 Hematocrit (Bld) [Volume fraction] 36.8 % 40-54 [facility] INR in Blood by Coagulation assayOrdered By: Walter Becker on 02-25-2023 INR Coag (Bld) [Relative time] 2.6 {INR} [facility] Laboratory - CoagulationOrde red By: Walter Becker on 02-25-2023 PT Coag (PPP) [Time] 28.0 s 11.7-14.9 [facility] No Panel InformationOrdered By: Walter Becker on 02-25-2023 28.0 SECONDS 11.7-14.9 [facility] Laboratory - CoagulationOrde red By: Walter Becker on 02-22-2023 INR Coag (Bld) [Relative time] 2.6 {INR} [facility] Comment on above: Critical Value > 4.0 No Panel InformationOrdered By: Walter Becker on 02-22-2023 2.6 [facility] Whole blood prothrombin time Ordered By: Walter Becker on 02-22-2023 PT Coag (Bld) [Time] 28.4 s 11.7-14.9 [facility] No Panel InformationOrdered By: Walter Becker on 02-20-2023 2.9 [facility] Whole blood prothrombin time Ordered By: Walter Becker on 02-20-2023 PT Coag (Bld) [Time] 30.7 s 11.7-14.9 [facility] Blood hemoglobin measurement (mass/volume)Ordered By: Walter Becker on 02-18-2023 Hemoglobin (Bld) [Mass/Vol] 8.8 g/dL 13.0-16. 5 [facility] Hematocrit Auto (Bld) [Volum e fraction]Ordered By: Walter Becker on 02-18-2023 Hematocrit (Bld) [Volume fraction] 28.2 % 40-54 [facility] INR in Blood by Coagulation assayOrdered By: Walter Becker on 02-18-2023 INR Coag (Bld) [Relative time] 2.8 {INR} [facility] No Panel InformationOrdered By: Walter Becker on 02-18-2023 29.5 SECONDS 11.7-14.9 [facility] No Panel InformationOrdered By: Walter Becker on 02-14-2023 2.2 [facility] Whole blood prothrombin time Ordered By: Walter Becker on 02-14-2023 PT Coag (Bld) [Time] 24.3 s 11.7-14.9 [facility] Absolute lymphocyte countOrd ered By: Gabriel Giraldo on 02-13-2023 Lymphocytes Auto (Unsp spec) [#/Vol] 0.84 10*3/uL 0.83-4.51 [facility] Basophil percentageOrdered B y: Gabriel Giraldo on 02-13-2023 Basophils (Bld) [#/Vol] 5.4 10*3/uL 4.4-11.0 [facility] Basophils (Bld) [#/Vol] 3.6 10*3/uL 2.0-7.7 [facility] Basophils/100 WBC (Bld) 67.5 % 47-[address] [facility] Basophils/100 WBC (Bld) 4.1 % 0-[address] [facility] Basophils/100 WBC (Bld) 0.4 % 0-[address] [facility] Blood erythrocytes count (nu mber/volume)Ordered By: Gabriel Giraldo on 02-13-2023 RBC (Bld) [#/Vol] 2.76 10*6/uL 4.6-6.2 [facility] Blood hemoglobin measurement (mass/volume)Ordered By: Gabriel Giraldo on 02-13-2023 Hemoglobin (Bld) [Mass/Vol] 7.5 g/dL 13.0-16. 5 [facility] Blood lymphocytes/100 leukoc ytesOrdered By: Gabriel Giraldo on 02-13-2023 Lymphocytes/100 WBC (Bld) 15.7 % 19-41 [facility] Blood monocytes/100 leukocyt esOrdered By: Gabriel Giraldo on 02-13-2023 Monocytes/100 WBC (Bld) 11.2 % 0-[address] [facility] Blood platelet mean volumeOr dered By: Gabriel Giraldo on 02-13-2023 Platelet mean volume (Bld) [Entitic vol] 9.2 fL 6.2-12.0 [facility] COVID-19 virus antigen assay Ordered By: Gabriel Giraldo on 02-13-2023 SARS-CoV-2 (COVID-19) Ag IA.rapid Ql (Resp) [facility] SARS-CoV-2 (COVID-19) Ag IA.rapid Ql (Resp) [facility] Determination of erythrocyte mean corpuscular volume (MCV)Ordered By: Gabriel Giraldo on 02-13-2023 MCV (RBC) [Entitic vol] 88.4 fL 80-[address] [facility] Glucose Glucometer (BldC) [M ass/Vol]Ordered By: Gabriel Giraldo on 02-13-2023 Glucose [Mass/Vol] 146 mg/dL 74-106 [facility] Hematocrit Auto (Bld) [Volum e fraction]Ordered By: Gabriel Giraldo on 02-13-2023 Hematocrit (Bld) [Volume fraction] 24.4 % 40-54 [facility] MCHC Auto (RBC) [Mass/Vol]Or dered By: Gabriel Giraldo on 02-13-2023 MCHC (RBC) [Mass/Vol] 30.7 g/dL 32-36 [facility] No Panel InformationOrdered By: Gabriel Giraldo on 02-13-2023 27.2 pg 27.0-32.0 [facility] 16.6 % 11.6-14.6 [facility] 54.5 fl 35.1-43.9 [facility] 1.100 % 0.0-0.9 [facility] 0.9 % 0-5 [facility] Platelets bldOrdered By: Elis Giraldo on 02-13-2023 Platelets (Bld) [#/Vol] 194 10*3/uL 150-450 [facility] INR in Blood by Coagulation assayOrdered By: Gabriel Giraldo on 02-12-2023 INR Coag (Bld) [Relative time] 1.6 {INR} [facility] No Panel InformationOrdered By: Smith Leija on 02-12-2023 No growth in 5 days. [facility] No growth in 5 days. [facility] No Panel InformationOrdered By: Gabriel Giraldo on 02-12-2023 19.3 SECONDS 11.7-14.9 [facility] Basophil percentageOrdered B y: Dandy Sauer on 02-11-2023 Basophil percentage 2.2 mmol/L 0.4-2.0 [facility] Basophil percentage 2.8 mmol/L 0.4-2.0 [facility] Basophil percentageOrdered B y: Walter Becker on 02-11-2023 Basophil percentage 168 mg/dL 74-106 [facility] Basophil percentage 135 mmol/L 136-145 [facility] Basophil percentage 3.7 mmol/L 3.5-5.1 [facility] Basophil percentage 103 mmol/L 98-107 [facility] Basophils (Bld) [#/Vol] 10.2 10*3/uL 4.4-11.0 [facility] Blood erythrocytes count (nu mber/volume)Ordered By: Walter Becker on 02-11-2023 RBC (Bld) [#/Vol] 3.16 10*6/uL 4.6-6.2 [facility] Blood hemoglobin measurement (mass/volume)Ordered By: Walter Becker on 02-11-2023 Hemoglobin (Bld) [Mass/Vol] 8.7 g/dL 13.0-16. 5 [facility] Blood platelet mean volumeOr dered By: Walter Becker on 02-11-2023 Platelet mean volume (Bld) [Entitic vol] 9.3 fL 6.2-12.0 [facility] Determination of erythrocyte mean corpuscular volume (MCV)Ordered By: Walter Becker on 02-11-2023 MCV (RBC) [Entitic vol] 87.0 fL 80-94 [facility] Hematocrit Auto (Bld) [Volum e fraction]Ordered By: Walter Becker on 02-11-2023 Hematocrit (Bld) [Volume fraction] 27.5 % 40-54 [facility] INR in Blood by Coagulation assayOrdered By: Walter Becker on 02-11-2023 INR Coag (Bld) [Relative time] 1.5 {INR} [facility] MCHC Auto (RBC) [Mass/Vol]Or dered By: Walter Becker on 02-11-2023 MCHC (RBC) [Mass/Vol] 31.6 g/dL 32-36 [facility] No Panel InformationOrdered By: Walter Becker on 02-11-2023 27.5 pg 27.0-32.0 [facility] 17.3 % 11.6-14.6 [facility] 55.7 fl 35.1-43.9 [facility] 18.2 SECONDS 11.7-14.9 [facility] 67 mL/min >60 [facility] 81 mL/min >60 [facility] 21.1 RATIO 10-20 [facility] 27.0 mmol/L 21.0-32.0 [facility] Platelets bldOrdered By: Crystal Becker on 02-11-2023 Platelets (Bld) [#/Vol] 200 10*3/uL 150-450 [facility] Serum or plasma calcium antoine urement (mass/volume)Ordered By: Walter Becker on 02-11-2023 Calcium [Mass/Vol] 8.7 mg/dL 8.5-10.1 [facility] Serum or plasma creatinine m easurement (mass/volume)Ordered By: Walter Becker on 02-11-2023 Creatinine [Mass/Vol] 1.14 mg/dL 0.70-1.30 [facility] Serum or plasma urea nitroge n measurement (mass/volume)Ordered By: Walter Becker on 02-11-2023 Urea nitrogen [Mass/Vol] 24 mg/dL 7-18 [facility] Thin prep Papanicolaou smear with manual screeningOrdered By: Walter Becker on 02-11-2023 Thin prep Papanicolaou smear with manual screening 5 5-15 [facility] Absolute lymphocyte countOrd ered By: Geremias Carey on 02-10-2023 Lymphocytes Auto (Unsp spec) [#/Vol] 0.46 10*3/uL 0.83-4.51 [facility] Bacteria identified Cx Nom ( U)Ordered By: Geremias Carey on 02-10-2023 Culture, urine Klebsiella pneumonia e sp pneum [facility] Culture, urine Klebsiella pneumonia e sp pneum [facility] Basophil percentageOrdered B y: Geremias Carey on 02-10-2023 Basophil percentage 1.9 mmol/L 0.4-2.0 [facility] Basophil percentage 25-50 SEEN /hpf 0-5 [facility] Basophil percentage 158 mg/dL 74-106 [facility] Basophil percentage 5.6 g/dL 6.4-8.2 [facility] Basophil percentage 0.90 mg/dL 0.20-1.00 [facility] Basophil percentage 136 mmol/L 136-145 [facility] Basophil percentage 3.7 mmol/L 3.5-5.1 [facility] Basophil percentage 103 mmol/L 98-107 [facility] Basophils (Bld) [#/Vol] 10.8 10*3/uL 4.4-11.0 [facility] Basophils (Bld) [#/Vol] 9.2 10*3/uL 2.0-7.7 [facility] Basophils/100 WBC (Bld) 84.8 % 47-[address] [facility] Basophils/100 WBC (Bld) 0.2 % 0-[address] [facility] Basophils/100 WBC (Bld) 0.1 % 0-[address] [facility] Bilirubin Test strip Ql (U)O rdered By: Geremias Carey on 02-10-2023 Bilirubin Ql (U) Negative Negative [facility] Blood erythrocytes count (nu mber/volume)Ordered By: Geremias Carey on 02-10-2023 RBC (Bld) [#/Vol] 3.20 10*6/uL 4.6-6.2 [facility] Blood hemoglobin measurement (mass/volume)Ordered By: Geremias Carey on 02-10-2023 Hemoglobin (Bld) [Mass/Vol] 8.8 g/dL 13.0-16. 5 [facility] Blood lymphocytes/100 leukoc ytesOrdered By: Geremias Carey on 02-10-2023 Lymphocytes/100 WBC (Bld) 4.3 % 19-41 [facility] Blood manual differential co mment interpretation (narrative result)Ordered By: Geremias Carey on 02-10-2023 Manual differential comment Ori (Bld) [Interp] SCANNED [facility] Blood monocytes/100 leukocyt esOrdered By: Geremias Carey on 02-10-2023 Monocytes/100 WBC (Bld) 9.8 % 0-[address] [facility] Blood platelet mean volumeOr dered By: Geremias Carey on 02-10-2023 Platelet mean volume (Bld) [Entitic vol] 9.3 fL 6.2-12.0 [facility] Determination of erythrocyte mean corpuscular volume (MCV)Ordered By: Geremias Carey on 02-10-2023 MCV (RBC) [Entitic vol] 87.8 fL 80-[address] [facility] Direct bilirubinOrdered By: Geremias Carey on 02-10-2023 Bilirubin.direct [Mass/Vol] 0.43 mg/dL 0.00-0.3 0 [facility] Hematocrit Auto (Bld) [Volum e fraction]Ordered By: Geremias Carey on 02-10-2023 Hematocrit (Bld) [Volume fraction] 28.1 % 40-54 [facility] INR in Blood by Coagulation assayOrdered By: Geremias Carey on 02-10-2023 INR Coag (Bld) [Relative time] 1.4 {INR} [facility] Influenza virus A and B and SARS-CoV-2 (COVID-19) Ag panel - Upper respiratory specimOrdered By: Geremias Carey on 02-10-2023 SARS-CoV-2 (COVID-19) RNA ANGELY+probe Ql (Resp) [facility] SARS-CoV-2 (COVID-19) RNA ANGELY+probe Ql (Resp) [facility] Ketones Test strip Ql (U)Ord ered By: Geremias Carey on 02-10-2023 Ketones Ql (U) 5 mg/dl Negative [facility] MCHC Auto (RBC) [Mass/Vol]Or dered By: Geremias Carey on 02-10-2023 MCHC (RBC) [Mass/Vol] 31.3 g/dL 32-36 [facility] Mucus LM Ql (Urine sed)Order ed By: Geremias Carey on 02-10-2023 Mucus Ql (Urine sed) 0 SEEN /hpf [facility] Nitrite Test strip Ql (U)Ord ered By: Geremias Carey on 02-10-2023 Nitrite Ql (U) Negative Negative [facility] No Panel InformationOrdered By: Geremias Carey on 02-10-2023 GNR lactose chief green officer [facility] GNR lactose chief green officer [facility] 27.5 pg 27.0-32.0 [facility] 17.3 % 11.6-14.6 [facility] 55.2 fl 35.1-43.9 [facility] 0.800 % 0.0-0.9 [facility] 0 % 0-5 [facility] 17.5 SECONDS 11.7-14.9 [facility] 42.1 Seconds 24.1-36.2 [facility] 70 mL/min >60 [facility] 85 mL/min >60 [facility] 66.18 ml/min [facility] 23.9 RATIO 10-20 [facility] 3.3 g/dL 2.2-4.2 [facility] 100 U/L 45-117 [facility] 18 U/L 16-61 [facility] 24.0 mmol/L 21.0-32.0 [facility] Platelets bldOrdered By: Luis Enrique Carey on 02-10-2023 Platelets (Bld) [#/Vol] 189 10*3/uL 150-450 [facility] Protein Test strip Ql (U)Ord ered By: Geremias Carey on 02-10-2023 Protein Ql (U) 100 mg/dl Negative [facility] Serum or plasma albumin antoine urement (mass/volume)Ordered By: Geremias Carey on 02-10-2023 Albumin [Mass/Vol] 2.3 g/dL 3.2-5.0 [facility] Serum or plasma calcium antoine urement (mass/volume)Ordered By: Geremias Carey on 02-10-2023 Calcium [Mass/Vol] 8.3 mg/dL 8.5-10.1 [facility] Serum or plasma creatinine m easurement (mass/volume)Ordered By: Geremias Carey on 02-10-2023 Creatinine [Mass/Vol] 1.09 mg/dL 0.70-1.30 [facility] Serum or plasma urea nitroge n measurement (mass/volume)Ordered By: Geremias Carey on 02-10-2023 Urea nitrogen [Mass/Vol] 26 mg/dL 7-18 [facility] Serum procalcitonin measurem entOrdered By: Geremias Carey on 02-10-2023 Procalcitonin [Mass/Vol] 1.43 ng/mL 0.00-0.09 [facility] Squamous epithelial cells de tection in urine sediment by light microscopyOrdered By: Geremias Carey on 02-10-2023 Epithelial cells.squamous LM Ql (Urine sed) 0 SEEN /hpf 0-5 [facility] Thin prep Papanicolaou smear with manual screeningOrdered By: Geremias Carey on 02-10-2023 Thin prep Papanicolaou smear with manual screening 10 U/L 15-37 [facility] Thin prep Papanicolaou smear with manual screening 9 5-15 [facility] Urine blood detectionOrdered By: Geremias Carey on 02-10-2023 RBC Ql (U) 250 /ul Negative [facility] RBC Ql (U) 25-50 SEEN /hpf 0-5 [facility] Urine clarityOrdered By: Luis Enrique Carey on 02-10-2023 Clarity (U) Sl. Cloudy Clear [facility] Urine color determinationOrd ered By: Geremias Carey on 02-10-2023 Color (U) Yellow Yellow [facility] Urine glucose detectionOrder ed By: Geremias Carey on 02-10-2023 Glucose Ql (U) Normal mg/dl Normal [facility] Urine leukocyte esterase det ection by dipstickOrdered By: Geremias Carey on 02-10-2023 Leukocyte esterase Test strip Ql (U) 500 /ul Negative [facility] Urine pHOrdered By: Geremias torrez on 02-10-2023 pH (U) 5.0 [pH] 5.0 - 8.0 [facility] Urine sediment bacteria coun t by microscopy (number/high power field)Ordered By: Geremias Carey on 02-10-2023 Bacteria LM.HPF (Urine sed) [#/Area] 4 /[HPF] None Seen [facility] Urine specific gravity measu rementOrdered By: Geremias Carey on 02-10-2023 Specific gravity (U) [Rel density] 1.015 1.002-1.03 0 [facility] Urobilinogen Auto test strip Ql (U)Ordered By: Geremias Carey on 02-10-2023 Urobilinogen Ql (U) Normal mg/dl Normal [facility] Blood hemoglobin measurement (mass/volume)Ordered By: Walter Becker on 02-07-2023 Hemoglobin (Bld) [Mass/Vol] 8.8 g/dL 13.0-16. 5 [facility] Hematocrit Auto (Bld) [Volum e fraction]Ordered By: Walter Becker on 02-07-2023 Hematocrit (Bld) [Volume fraction] 29.0 % 40-54 [facility] COVID-19 virus antigen assay Ordered By: Caryl Mcdermott on 02-05-2023 SARS-CoV-2 (COVID-19) Ag IA.rapid Ql (Resp) [facility] SARS-CoV-2 (COVID-19) Ag IA.rapid Ql (Resp) [facility] Glucose Glucometer (BldC) [M ass/Vol]Ordered By: Caryl Mcdermott on 02-05-2023 Glucose [Mass/Vol] 163 mg/dL 74-106 [facility] Absolute lymphocyte countOrd ered By: Yisel Rendon on 02-04-2023 Lymphocytes Auto (Unsp spec) [#/Vol] 1.39 10*3/uL 0.83-4.51 [facility] Basophil percentageOrdered B y: Yisel Rendon on 02-04-2023 Basophil percentage 151 mg/dL 74-106 [facility] Basophil percentage 141 mmol/L 136-145 [facility] Basophil percentage 3.5 mmol/L 3.5-5.1 [facility] Basophil percentage 110 mmol/L 98-107 [facility] Basophils (Bld) [#/Vol] 8.1 10*3/uL 4.4-11.0 [facility] Basophils (Bld) [#/Vol] 5.8 10*3/uL 2.0-7.7 [facility] Basophils/100 WBC (Bld) 71.5 % 47-[address] [facility] Basophils/100 WBC (Bld) 2.6 % 0-[address] [facility] Basophils/100 WBC (Bld) 0.1 % 0-[address] [facility] Blood erythrocytes count (nu mber/volume)Ordered By: Yisel Rendon on 02-04-2023 RBC (Bld) [#/Vol] 3.23 10*6/uL 4.6-6.2 [facility] Blood hemoglobin measurement (mass/volume)Ordered By: Yisel Rendon on 02-04-2023 Hemoglobin (Bld) [Mass/Vol] 8.8 g/dL 13.0-16. 5 [facility] [facility] Blood lymphocytes/100 leukoc ytesOrdered By: Yisel Rendon on 02-04-2023 Lymphocytes/100 WBC (Bld) 17.2 % 19-41 [facility] Blood monocytes/100 leukocyt esOrdered By: Yisel Rendon on 02-04-2023 Monocytes/100 WBC (Bld) 6.3 % 0-[address] [facility] Blood platelet mean volumeOr dered By: Yisel Rendon on 02-04-2023 Platelet mean volume (Bld) [Entitic vol] 8.8 fL 6.2-12.0 [facility] Determination of erythrocyte mean corpuscular volume (MCV)Ordered By: Yisel Rendon on 02-04-2023 MCV (RBC) [Entitic vol] 89.5 fL 80-[address] [facility] Hematocrit Auto (Bld) [Volum e fraction]Ordered By: Yisel Rendon on 02-04-2023 Hematocrit (Bld) [Volume fraction] 28.9 % 40-54 [facility] MCHC Auto (RBC) [Mass/Vol]Or dered By: Yisel Rendon on 02-04-2023 MCHC (RBC) [Mass/Vol] 30.4 g/dL 32-36 [facility] No Panel InformationOrdered By: Yisel Rendon on 02-04-2023 27.2 pg 27.0-32.0 [facility] 17.8 % 11.6-14.6 [facility] 56.6 fl 35.1-43.9 [facility] 2.300 % 0.0-0.9 [facility] 0 % 0-5 [facility] 67 mL/min >60 [facility] 81 mL/min >60 [facility] 63.83 ml/min [facility] 10.6 RATIO 10-20 [facility] 25.0 mmol/L 21.0-32.0 [facility] Platelets bldOrdered By: José Luis Rendon on 02-04-2023 Platelets (Bld) [#/Vol] 341 10*3/uL 150-450 [facility] Serum or plasma calcium antoine urement (mass/volume)Ordered By: Yisel Rendon on 02-04-2023 Calcium [Mass/Vol] 8.4 mg/dL 8.5-10.1 [facility] Serum or plasma creatinine m easurement (mass/volume)Ordered By: Yisel Rendon on 02-04-2023 Creatinine [Mass/Vol] 1.13 mg/dL 0.70-1.30 [facility] Serum or plasma urea nitroge n measurement (mass/volume)Ordered By: Yisel Rendon on 02-04-2023 Urea nitrogen [Mass/Vol] 12 mg/dL 7-18 [facility] Thin prep Papanicolaou smear with manual screeningOrdered By: Yisel Rendon on 02-04-2023 Thin prep Papanicolaou smear with manual screening 6 5-15 [facility] Blood band neutrophil count as percentage of total leukocytesOrdered By: Yisel Rendon on 01-31-2023 Band form neutrophils/100 WBC (Bld) 3 % 0-5 [facility] Blood eosinophils/100 leukoc ytesOrdered By: Yisel Rendon on 01-31-2023 Eosinophils/100 WBC (Bld) 2 % 0-5 [facility] Blood lymphocytes/100 leukoc ytesOrdered By: Yisel Rendon on 01-31-2023 Lymphocytes/100 WBC (Bld) 22 % 19-41 [facility] Blood metamyelocytes/100 yolis kocytesOrdered By: Yisel Rendon on 01-31-2023 Metamyelocytes/100 WBC (Bld) 1 % 0-1 [facility] Blood monocytes/100 leukocyt esOrdered By: Yisel Rendon on 01-31-2023 Monocytes/100 WBC (Bld) 5 % 0-[address] [facility] Blood platelet adequacy dete ction by light microscopyOrdered By: Yisel Rendon on 01-31-2023 Platelets LM Ql (Bld) ADEQUATE ADEQ [facility] Blood polychromasia detectio n by light microscopyOrdered By: Yisel Rendon on 01-31-2023 Polychromasia LM Ql (Bld) RARE [facility] Blood segmented neutrophils/ 100 leukocytesOrdered By: Yisel Rendon on 07-20-2023 Segmented neutrophils/100 WBC (Bld) 64 % 47-70 [facility] No Panel InformationOrdered By: Yisel Rendon on 01-31-2023 3 % 0-0 [facility] Review by pathologistOrdered By: Yisel Rendon on 01-31-2023 Pathologist review Ori (Unsp spec) [Interp] Reviewed [facility] Total cell countOrdered By: Yisel Rendon on 01-31-2023 Cells counted Molgen (Bld/Tiss) [#] 100 MANUAL DIFF [facility] Basophil percentageOrdered B y: Yisel Rendon on 01-30-2023 Basophil percentage 148 U/L 87-241 [facility] Blood manual differential co mment interpretation (narrative result)Ordered By: Yisel Rendon on 01-30-2023 Manual differential comment Ori (Bld) [Interp] SCANNED [facility] Hemoglobin in reticulocytes (mass per reticulocyte)Ordered By: Yisel Rendon on 01-30-2023 Hemoglobin (Reticulocytes) [Entitic mass] 22.8 pg 30-35 [facility] Hypochromatic red blood cell detectionOrdered By: Yisel Rendon on 01-30-2023 Hypochromia Ql (Bld) 1+ [facility] Iron measurement (mass/mass) Ordered By: Yisel Rendon on 01-30-2023 Iron (Unsp spec) [Mass/Mass] 28 ug/dL 65-175 [facility] No Panel InformationOrdered By: Yisel Rendon on 01-30-2023 RARE % [facility] 3.53 % 0.5-1.5 [facility] 40.30 % 3.00-15.90 [facility] 635 pg/mL 211-911 [facility] 166 ug/dL 250-450 [facility] Serum or plasma ferritin hank surement (mass/volume)Ordered By: Yisel Rendon on 01-30-2023 Ferritin [Mass/Vol] 138 ng/mL 26-388 [facility] Serum or plasma folate measu rement (mass/volume)Ordered By: Yisel Rendon on 01-30-2023 Folate [Mass/Vol] 4.60 ng/mL 3.1-55.4 [facility] Serum or plasma iron saturat ion measurement (mass fraction)Ordered By: Yisel Rendon on 01-30-2023 Iron saturation [Mass fraction] 16.9 % 15.0-55.0 [facility] No Panel InformationOrdered By: Yisel Rendon on 01-29-2023 RARE [facility] Vancomycin troughOrdered By: Karen Aly on 01-29-2023 Vancomycin trough [Mass/Vol] 7.8 ug/mL 5.0-15.0 [facility] Basophil percentageOrdered B y: Karen Jermain on 01-28-2023 Basophil percentage 5.8 g/dL 6.4-8.2 [facility] Basophil percentage 0.70 mg/dL 0.20-1.00 [facility] No Panel InformationOrdered By: Karen Jermain on 01-28-2023 3.8 g/dL 2.2-4.2 [facility] 81 U/L 45-117 [facility] 85 U/L 16-61 [facility] Serum or plasma albumin antoine urement (mass/volume)Ordered By: Karen Aly on 01-28-2023 Albumin [Mass/Vol] 2.0 g/dL 3.2-5.0 [facility] Serum or plasma albumin/glob ulin mass ratioOrdered By: Karen Jermain on 01-28-2023 Albumin/Globulin [Mass ratio] 0.5 {ratio} 0.9-2.4 [facility] Thin prep Papanicolaou smear with manual screeningOrdered By: Karen Aly on 01-28-2023 Thin prep Papanicolaou smear with manual screening 49 U/L 15-37 [facility] Absolute lymphocyte countOrd ered By: Syed Allen on 01-27-2023 Lymphocytes Auto (Unsp spec) [#/Vol] 1.35 10*3/uL 0.83-4.51 [facility] Basophil percentageOrdered B y: Karen Jermain on 01-27-2023 Basophil percentage 2.6 mg/dL 2.5-4.9 [facility] Basophil percentageOrdered B y: Syed Allen on 01-27-2023 Basophils/100 WBC (Bld) 0.1 % 0-1 [facility] Bilirubin [Mass/Vol] 0.50 mg/dL 0.20-1.00 [facility] Comment on above: For patients on eltr ombopag therapy, use of Dimension Sylvester TBIL is not recommended. Chloride [Moles/Vol] 111 mmol/L 98-107 [facility] Eosinophils/100 WBC (Bld) 2.9 % 0-5 [facility] Glucose [Mass/Vol] 215 mg/dL 74-106 [facility] Comment on above: Glucose result great er than or equal to 200 mg/dLsuggests DIABETES MELLITUS per A.D.A. criteria. Neutrophils (Bld) [#/Vol] 8.0 10*3/uL 2.0-7.7 [facility] Neutrophils/100 WBC (Bld) 73.8 % 47-70 [facility] Potassium [Moles/Vol] 4.0 mmol/L 3.5-5.1 [facility] Protein [Mass/Vol] 5.3 g/dL 6.4-8.2 [facility] Sodium [Moles/Vol] 140 mmol/L 136-145 [facility] WBC (Bld) [#/Vol] 10.9 10*3/uL 4.4-11.0 [facility] Blood erythrocytes count (nu mber/volume)Ordered By: Syed Allen on 01-27-2023 RBC (Bld) [#/Vol] 2.91 10*6/uL 4.6-6.2 [facility] Blood hemoglobin measurement (mass/volume)Ordered By: Syed Allen on 01-27-2023 Hemoglobin (Bld) [Mass/Vol] 8.2 g/dL 13.0-16. 5 [facility] Blood lymphocytes/100 leukoc ytesOrdered By: Syed Allen on 01-27-2023 Lymphocytes/100 WBC (Bld) 12.4 % 19-41 [facility] Blood monocytes/100 leukocyt esOrdered By: Syed Allen on 01-27-2023 Monocytes/100 WBC (Bld) 8.2 % 0-10 [facility] Blood platelet mean volumeOr dered By: Syed Allen on 01-27-2023 Platelet mean volume (Bld) [Entitic vol] 9.9 fL 6.2-12.0 [facility] Determination of erythrocyte mean corpuscular volume (MCV)Ordered By: Syed Allen on 01-27-2023 MCV (RBC) [Entitic vol] 88.0 fL 80-[address] [facility] Hematocrit Auto (Bld) [Volum e fraction]Ordered By: Syed Allen on 01-27-2023 Hematocrit (Bld) [Volume fraction] 25.6 % 40-54 [facility] INR in Blood by Coagulation assayOrdered By: Syed Allen on 01-27-2023 INR Coag (Bld) [Relative time] 1.6 {INR} [facility] Laboratory - Chemistry and C hemistry - challengeOrdered By: Syed Allen on 01-27-2023 ALP [Catalytic activity/Vol] 78 U/L 45-117 [facility] ALT [Catalytic activity/Vol] 81 U/L 16-61 [facility] CO2 [Moles/Vol] 25.0 mmol/L 21.0-32.0 [facility] Globulin (S) [Mass/Vol] 3.5 g/dL 2.2-4.[address] [facility] Lipase [Catalytic activity/Vol] 233 U/L 13-75 [facility] Comment on above: Please note:LIPASE r evised reference range effective 22. New Lipase methodology. Expected to produce lower values than the previous assay method. NEW Reference Range: 13 - 75 U/L Urea nitrogen/Creatinine [Mass ratio] 20.4 mg/mg 10-20 [facility] Laboratory - CoagulationOrde red By: Syed Allen on 01-27-2023 PT Coag (PPP) [Time] 19.4 s 11.7-14.9 [facility] Laboratory - Hematology and Cell countsOrdered By: Syed Allen on 01-27-2023 Erythrocyte distribution width (RBC) [Entitic vol] 49.3 fL 35.1-43.9 [facility] Erythrocyte distribution width (RBC) [Ratio] 15.5 % 11.6-14.6 [facility] Immature granulocytes/100 WBC (Bld) 2.600 % 0.0-0.9 [facility] Comment on above: IG% - Immature Granu locytes (promyelocytes, myelocytes and metamyelocytes) > 1% indicates that a LEFT SHIFT is Present. MCH (RBC) [Entitic mass] 28.2 pg 27.0-32.0 [facility] Nucleated RBC/100 WBC (Bld) [Ratio] 0.2 % 0-5 [facility] MCHC Auto (RBC) [Mass/Vol]Or dered By: Syed Allen on 01-27-2023 MCHC (RBC) [Mass/Vol] 32.0 g/dL 32-36 [facility] No Panel InformationOrdered By: Karen Jermain on 01-27-2023 Negative Negative [facility] 1.7 mg/dL 1.6-2.6 [facility] No Panel InformationOrdered By: Syed Allen on 01-27-2023 Estimated Creatinine Clearance Calc 50.80 ml/min [facility] Estimated GFR (MDRD) Amer 63 mL/min >60 [facility] Comment on above: GFR Calc Estimated GFR (MDRD) Non-Af Amer 52 mL/min >60 [facility] Comment on above: Non- GFR Calc 19.4 SECONDS 11.7-14.9 [facility] 233 U/L 13-75 [facility] Platelets bldOrdered By: Glenroy Allen on 01-27-2023 Platelets (Bld) [#/Vol] 259 10*3/uL 150-450 [facility] Serum or plasma albumin antoine urement (mass/volume)Ordered By: Syed Allen on 01-27-2023 Albumin [Mass/Vol] 1.8 g/dL 3.2-5.0 [facility] Serum or plasma albumin/glob ulin mass ratioOrdered By: Syed Allen on 01-27-2023 Albumin/Globulin [Mass ratio] 0.5 {ratio} 0.9-2.4 [facility] Serum or plasma calcium antoine urement (mass/volume)Ordered By: Syed Allen on 01-27-2023 Calcium [Mass/Vol] 8.3 mg/dL 8.5-10.1 [facility] Serum or plasma creatinine m easurement (mass/volume)Ordered By: Syed Allen on 01-27-2023 Creatinine [Mass/Vol] 1.42 mg/dL 0.70-1.30 [facility] Comment on above: The validity of the calculated GFR & GFRAA in patients over 70 years has not been determined. Clinical correlation is essential. Serum or plasma urea nitroge n measurement (mass/volume)Ordered By: Syed Allen on 01-27-2023 Urea nitrogen [Mass/Vol] 29 mg/dL 7-18 [facility] Serum procalcitonin measurem entOrdered By: Karen Jermain on 01-27-2023 Procalcitonin [Mass/Vol] 0.12 ng/mL 0.00-0.09 [facility] Thin prep Papanicolaou smear with manual screeningOrdered By: Syed Allen on 01-27-2023 Thin prep Papanicolaou smear with manual screening 68 U/L 15-37 [facility] Thin prep Papanicolaou smear with manual screening 4 5-15 [facility] Urine Legionella pneumophila antigen detectionOrdered By: Karen Aly on 01-27-2023 L. pneumophila Ag Ql (U) [facility] Absolute lymphocyte countOrd ered By: Ryan Tinoco on 01-26-2023 Lymphocytes Auto (Unsp spec) [#/Vol] 0.69 10*3/uL 0.83-4.51 [facility] Basophil percentageOrdered B y: Karen Jermain on 01-26-2023 Basophil percentage 2.4 mg/dL 2.5-4.9 [facility] Basophil percentageOrdered B y: Ryan Tinoco on 01-26-2023 Basophil percentage 235 mg/dL 74-106 [facility] Basophil percentage 143 mmol/L 136-145 [facility] Basophil percentage 3.8 mmol/L 3.5-5.1 [facility] Basophil percentage 114 mmol/L 98-107 [facility] Basophils (Bld) [#/Vol] 8.5 10*3/uL 4.4-11.0 [facility] Basophils (Bld) [#/Vol] 6.7 10*3/uL 2.0-7.7 [facility] Basophils/100 WBC (Bld) 0.1 % 0-[address] [facility] Basophils/100 WBC (Bld) 78.4 % 47-[address] [facility] Basophils/100 WBC (Bld) 1.6 % 0-[address] [facility] Chloride [Moles/Vol] 114 mmol/L 98-107 [facility] Eosinophils/100 WBC (Bld) 1.6 % 0-5 [facility] Glucose [Mass/Vol] 235 mg/dL 74-106 [facility] Comment on above: Glucose result great er than or equal to 200 mg/dLsuggests DIABETES MELLITUS per A.D.A. criteria. Neutrophils (Bld) [#/Vol] 6.7 10*3/uL 2.0-7.7 [facility] Neutrophils/100 WBC (Bld) 78.4 % 47-70 [facility] Potassium [Moles/Vol] 3.8 mmol/L 3.5-5.1 [facility] Sodium [Moles/Vol] 143 mmol/L 136-145 [facility] WBC (Bld) [#/Vol] 8.5 10*3/uL 4.4-11.0 [facility] Blood erythrocytes count (nu mber/volume)Ordered By: Ryan Tinoco on 01-26-2023 RBC (Bld) [#/Vol] 3.06 10*6/uL 4.6-6.2 [facility] Blood hemoglobin measurement (mass/volume)Ordered By: Ryan Tinoco on 01-26-2023 Hemoglobin (Bld) [Mass/Vol] 8.6 g/dL 13.0-16. 5 [facility] Blood lymphocytes/100 leukoc ytesOrdered By: Ryan Tinoco on 01-26-2023 Lymphocytes/100 WBC (Bld) 8.1 % 19-41 [facility] Blood monocytes/100 leukocyt esOrdered By: Ryan Tinoco on 01-26-2023 Monocytes/100 WBC (Bld) 9.6 % 0-[address] [facility] Blood platelet mean volumeOr dered By: Ryan Tinoco on 01-26-2023 Platelet mean volume (Bld) [Entitic vol] 9.9 fL 6.2-12.0 [facility] COVID-19 virus antigen assay Ordered By: Ryan Tinoco on 01-26-2023 SARS-CoV-2 (COVID-19) Ag IA.rapid Ql (Resp) [facility] SARS-CoV-2 (COVID-19) Ag IA.rapid Ql (Resp) [facility] Determination of erythrocyte mean corpuscular volume (MCV)Ordered By: Ryan Tinoco on 01-26-2023 MCV (RBC) [Entitic vol] 88.6 fL 80-[address] [facility] Glucose Glucometer (BldC) [M ass/Vol]Ordered By: Ryan Tinoco on 01-26-2023 Glucose [Mass/Vol] 230 mg/dL 74-106 [facility] Comment on above: MANAGEMENT OF PATIEN T CARE PER NURSING PROTOCOL Hematocrit Auto (Bld) [Volum e fraction]Ordered By: Ryan Tinoco on 01-26-2023 Hematocrit (Bld) [Volume fraction] 27.1 % 40-54 [facility] Laboratory - Chemistry and C hemistry - challengeOrdered By: Ryan Tinoco on 01-26-2023 CO2 [Moles/Vol] 23.0 mmol/L 21.0-32.0 [facility] Urea nitrogen/Creatinine [Mass ratio] 18.8 mg/mg 10-20 [facility] Laboratory - Chemistry and C hemistry - challengeOrdered By: Karen Aly on 01-26-2023 Magnesium [Mass/Vol] 1.8 mg/dL 1.6-2.6 [facility] Laboratory - Hematology and Cell countsOrdered By: Ryan Tinoco on 01-26-2023 Erythrocyte distribution width (RBC) [Entitic vol] 50.6 fL 35.1-43.9 [facility] Erythrocyte distribution width (RBC) [Ratio] 15.9 % 11.6-14.6 [facility] Immature granulocytes/100 WBC (Bld) 2.200 % 0.0-0.9 [facility] Comment on above: IG% - Immature Granu locytes (promyelocytes, myelocytes and metamyelocytes) > 1% indicates that a LEFT SHIFT is Present. MCH (RBC) [Entitic mass] 28.1 pg 27.0-32.0 [facility] Nucleated RBC/100 WBC (Bld) [Ratio] 0.5 % 0-5 [facility] MCHC Auto (RBC) [Mass/Vol]Or dered By: yRan Tinoco on 01-26-2023 MCHC (RBC) [Mass/Vol] 31.7 g/dL 32-36 [facility] No Panel InformationOrdered By: Ryan Tinoco on 01-26-2023 Estimated Creatinine Clearance Calc 48.41 ml/min [facility] Estimated GFR (MDRD) Amer 59 mL/min >60 [facility] Comment on above: GFR Calc Estimated GFR (MDRD) Non-Af Amer 49 mL/min >60 [facility] Comment on above: Non- GFR Calc 28.1 pg 27.0-32.0 [facility] 15.9 % 11.6-14.6 [facility] 50.6 fl 35.1-43.9 [facility] 2.200 % 0.0-0.9 [facility] 0.5 % 0-5 [facility] 49 mL/min >60 [facility] 59 mL/min >60 [facility] 48.41 ml/min [facility] 18.8 RATIO 10-20 [facility] 23.0 mmol/L 21.0-32.0 [facility] No Panel InformationOrdered By: Karen Aly on 01-26-2023 1.8 mg/dL 1.6-2.6 [facility] Platelets bldOrdered By: Jaziel Tinoco on 01-26-2023 Platelets (Bld) [#/Vol] 217 10*3/uL 150-450 [facility] Serum or plasma calcium antoine urement (mass/volume)Ordered By: Ryan Tinoco on 01-26-2023 Calcium [Mass/Vol] 8.5 mg/dL 8.5-10.1 [facility] Serum or plasma creatinine m easurement (mass/volume)Ordered By: Ryan Tinoco on 01-26-2023 Creatinine [Mass/Vol] 1.49 mg/dL 0.70-1.30 [facility] Comment on above: The validity of the calculated GFR & GFRAA in patients over 70 years has not been determined. Clinical correlation is essential. Serum or plasma urea nitroge n measurement (mass/volume)Ordered By: Ryan Tinoco on 01-26-2023 Urea nitrogen [Mass/Vol] 28 mg/dL 7-18 [facility] Thin prep Papanicolaou smear with manual screeningOrdered By: Ryan Tinoco on 01-26-2023 Thin prep Papanicolaou smear with manual screening 6 5-15 [facility] INR in Blood by Coagulation assayOrdered By: Ryan Tinoco on 01-25-2023 INR Coag (Bld) [Relative time] 1.6 {INR} [facility] Laboratory - CoagulationOrde red By: Ryan Tinoco on 01-25-2023 PT Coag (PPP) [Time] 19.1 s 11.7-14.9 [facility] No Panel InformationOrdered By: Ryan Tinoco on 01-25-2023 19.1 SECONDS 11.7-14.9 [facility] Albumin Elph [Mass/Vol]Order ed By: Liu Hackett on 01-22-2023 Albumin [Mass/Vol] 2.5 g/dL 2.9-4.4 [facility] Aldolase ser/plasOrdered By: Liu Hackett on 01-22-2023 Aldolase [Catalytic activity/Vol] 1.5 mU/mL 3.3-10.3 [facility] Comment on above: Performed at: [address] [id number] Director: Ernie Jacob PhD, Phone: [phone] at: [facility] [id number] Director: Lindsay Kearns MD, Phone: [phone] Atypical perinuclear antineu trophil cytoplasmic antibodies measurementOrdered By: Liu Hackett on 01-22-2023 Neutrophil cytoplasmic Ab.perinuclear.atypical IF (S) [Titer] <1:20 titer Neg:<1:20 [facility] Comment on above: The atypical pANCA p attern has been observed in asignificant percentage of patients with ulcerative colitis,primary sclerosing cholangitis and autoimmune hepatitis. Basophil percentageOrdered B y: Liu Hackett on 01-22-2023 Basophil percentage < 0.2 AI 0.0-0.9 [facility] Basophil percentage 3.4 mmol/L 0.4-2.0 [facility] Basophil percentage 136 U/L 87-241 [facility] Lactate [Moles/Vol] 3.4 mmol/L 0.4-2.0 [facility] Comment on above: Critical Result(s) C alled at: 12:30:42 01/22/2023 by: Aruna Morales. Inocencio Martin RN (ICU). Results read back by same. LDH [Catalytic activity/Vol] 136 U/L 87-241 [facility] Blood polychromasia detectio n by light microscopyOrdered By: Jesus Burnham on 01-22-2023 Polychromasia LM Ql (Bld) 1+ [facility] Interpretation of serum or p lasma protein pattern by immunofixation (narrative resultOrdered By: Liu Hackett on 01-22-2023 Protein Fractions Immunofixation Ori [Interp] See comment [facility] Comment on above: NOT OBSERVED Laboratory - Chemistry and C hemistry - challengeOrdered By: Liu Hackett on 01-22-2023 CK [Catalytic activity/Vol] 31 U/L 39-308 [facility] Laboratory - Hematology and Cell countsOrdered By: Jesus Burnham on 01-22-2023 Anisocytosis Ql (Bld) 1+ [facility] No Panel InformationOrdered By: Liu Hackett on 01-22-2023 Addendum Document Comment . [facility] Comment on above: Protein electrophore sis scan will follow via computer,mail, or office admin delivery. Centromere B Antibody <0.2 AI 0.0-0.9 [facility] Immunoglobulin E 399 IU/mL 6-495 [facility] Immunoglobulin G4 8 mg/dL 2-96 [facility] BUDDHIST MONK Antibody <0.2 AI 0.0-0.9 [facility] 31 U/L 39-308 [facility] 8 mg/dL 2-96 [facility] 399 IU/mL 6-495 [facility] <0.2 AI 0.0-0.9 [facility] No Panel InformationOrdered By: Jesus Burnham on 01-22-2023 1+ [facility] Review by pathologistOrdered By: Jesus Burnham on 01-22-2023 Pathologist review Ori (Unsp spec) [Interp] Reviewed [facility] Comment on above: Previous reported re sult: Corie sr Edited by: KEN on 01/23/23:1008Neutrophilic leukocytosis with left shift.Normocytic anemia.Clinical correlation necessary.Evaristo Dela Cruz M.D. 01/23/23 AMENDED REPORT 01/23/23 1008 PATH REV previously reported as: Corie sr Serum DNA double strand anti body assay (units/volume)Ordered By: Liuasim Hackett on 01-22-2023 DNA double strand Ab Qn (S) [IU]/mL 0-9 [facility] Comment on above: Negative <5 Equivoca l 5 - 9 Positive >9 Serum IgG subclass 1 measure ment (mass/volume)Ordered By: Liuasim Hackett on 01-22-2023 IgG subclass 1 (S) [Mass/Vol] 237 mg/dL 248-810 [facility] Serum IgG subclass 2 measure ment (mass/volume)Ordered By: Liuasim Hackett on 01-22-2023 IgG subclass 2 (S) [Mass/Vol] 115 mg/dL 130-555 [facility] Serum IgG subclass 3 measure ment (mass/volume)Ordered By: Liu Roxann on 01-22-2023 IgG subclass 3 (S) [Mass/Vol] 20 mg/dL 15-102 [facility] [facility] Serum Kelsey-1 antibody assay (u nits/volume)Ordered By: Liuasim Hackett on 01-22-2023 Kelsey-1 extractable nuclear Ab Qn (S) <0.2 AI 0.0-0.9 [facility] Serum Scl-70 extractable nuc lear antibody assay (units/volume)Ordered By: Liu Roxann on 01-22-2023 SCL-70 extractable nuclear Ab Qn (S) <0.2 AI 0.0-0.9 [facility] Serum Martinez extractable nucl ear antibody detectionOrdered By: Liu Hackett on 01-22-2023 Martinez extractable nuclear Ab Ql (S) <0.2 AI 0.0-0.9 [facility] Serum [id number]-[id number] measu rement by electrophoresisOrdered By: Liu Hackett on 01-22-2023 Alpha 1 globulin Elph [Mass/Vol] 0.2 g/dL 0.0-0.4 [facility] Alpha 1 globulin Elph [Mass/Vol] 0.6 g/dL 0.4-1.0 [facility] Serum classic neutrophil cyt oplasmic antibody assay (units/volume)Ordered By: Liu Hackett on 01-22-2023 Neutrophil cytoplasmic Ab.classic Qn (S) <1:20 titer Neg:<1:20 [facility] Serum globulin measurement ( mass/volume)Ordered By: Liu Hackett on 01-22-2023 Globulin (S) [Mass/Vol] 1.9 g/dL 2.2-3.[address] [facility] Serum or plasma IgA measurem ent (mass/volume)Ordered By: Liu Hackett on 01-22-2023 IgA [Mass/Vol] 194 mg/dL 61-437 [facility] Serum or plasma IgG measurem ent (mass/volume)Ordered By: Liu Hackett on 01-22-2023 IgG [Mass/Vol] 417 mg/dL 603-1613 [facility] IgG [Mass/Vol] Not Reportable [facility] Serum or plasma IgM measurem ent (mass/volume)Ordered By: Liu Hackett on 01-22-2023 IgM [Mass/Vol] 15 mg/dL 15-143 [facility] Comment on above: Result confirmed on concentration. Serum or plasma beta globuli n measurement by electrophoresis (mass/volume)Ordered By: Liu Hackett on 01-22-2023 Beta globulin Elph [Mass/Vol] 0.7 g/dL 0.7-1.3 [facility] Serum or plasma gamma globul in measurement by electrophoresis (mass/volume)Ordered By: Liu Hackett on 01-22-2023 Gamma globulin Elph [Mass/Vol] 0.3 g/dL 0.4-1.8 [facility] Serum or plasma immunoelectr ophoresis interpretation (nominal result)Ordered By: Liu Hackett on 01-22-2023 Interpretation IEP [Interp] Comment . [facility] Comment on above: No monoclonality det ected. Serum perinuclear neutrophil cytoplasmic antibody titer by immunofluorescenceOrdered By: Liu Hackett on 01-22-2023 Neutrophil cytoplasmic Ab.perinuclear IF (S) [Titer] <1:20 titer Neg:<1:20 [facility] Comment on above: The presence of posi tive fluorescence exhibiting P-ANCA orC-ANCA patterns alone is not specific for the diagnosis ofWegener's Granulomatosis (WG) or microscopic polyangiitis.Decisions about treatment should not be based solely onANCA IFA results. The [employer] ANCA [employer] Consensusrecommends follow up testing of positive sera with both CA-3 and MPO-ANCA enzyme immunoassays. As many as 5% serumsamples are positive only by EIA. Ref. AM J Clin Vorruu4713;111:507-513. Thin prep Papanicolaou smear with manual screeningOrdered By: Liu Hackett on 01-22-2023 Thin prep Papanicolaou smear with manual screening 1.4 0.7-1.7 [facility] Total protein bloodOrdered B y: Liu Hackett on 01-22-2023 Protein [Mass/Vol] 4.4 g/dL 6.0-8.5 [facility] Absolute lymphocyte countOrd ered By: Dandy Sauer on 01-21-2023 Lymphocytes Auto (Unsp spec) [#/Vol] 1.69 10*3/uL 0.83-4.51 [facility] Basophil percentageOrdered B y: Dandy Sauer on 01-21-2023 Basophil percentage 0-5 SEEN /hpf 0-5 [facility] Basophil percentage 5.4 g/dL 6.4-8.2 [facility] Basophil percentage 0.30 mg/dL 0.20-1.00 [facility] Basophils/100 WBC (Bld) 0.3 % 0-1 [facility] Bilirubin [Mass/Vol] 0.30 mg/dL 0.20-1.00 [facility] Comment on above: For patients on eltr ombopag therapy, use of Dimension Sylvester TBIL is not recommended. Chloride [Moles/Vol] 109 mmol/L 98-107 [facility] Eosinophils/100 WBC (Bld) 0.0 % 0-5 [facility] Glucose [Mass/Vol] 248 mg/dL 74-106 [facility] Comment on above: Glucose result great er than or equal to 200 mg/dLsuggests DIABETES MELLITUS per A.D.A. criteria. Lactate [Moles/Vol] 7.9 mmol/L 0.4-2.0 [facility] Comment on above: Critical Result(s) C alled at: 09:48:37 01/21/2023 by: Aruna Tadeo. Results read back by same. Neutrophils (Bld) [#/Vol] 19.7 10*3/uL 2.0-7.7 [facility] Neutrophils/100 WBC (Bld) 87.8 % 47-70 [facility] Potassium [Moles/Vol] 5.2 mmol/L 3.5-5.1 [facility] Protein [Mass/Vol] 5.4 g/dL 6.4-8.2 [facility] Sodium [Moles/Vol] 138 mmol/L 136-145 [facility] WBC (Bld) [#/Vol] 22.4 10*3/uL 4.4-11.0 [facility] Bilirubin Test strip Ql (U)O rdered By: Dandy Sauer on 01-21-2023 Bilirubin Ql (U) 1 mg/dL Negative [facility] Comment on above: COLOR OF URINE MAY A FFECT DIPSTICK RESULTS. Blood erythrocytes count (nu mber/volume)Ordered By: Dandy Sauer on 01-21-2023 RBC (Bld) [#/Vol] 3.96 10*6/uL 4.6-6.2 [facility] Blood hemoglobin measurement (mass/volume)Ordered By: Dandy Sauer on 01-21-2023 Hemoglobin (Bld) [Mass/Vol] 10.7 g/dL 13.0-16. 5 [facility] Blood lymphocytes/100 leukoc ytesOrdered By: Dandy Sauer on 01-21-2023 Lymphocytes/100 WBC (Bld) 7.5 % 19-41 [facility] Blood monocytes/100 leukocyt esOrdered By: Dandy Sauer on 01-21-2023 Monocytes/100 WBC (Bld) 2.4 % 0-[address] [facility] Blood platelet mean volumeOr dered By: Dandy Sauer on 01-21-2023 Platelet mean volume (Bld) [Entitic vol] 10.7 fL 6.2-12.0 [facility] Determination of erythrocyte mean corpuscular volume (MCV)Ordered By: Dandy Sauer on 01-21-2023 MCV (RBC) [Entitic vol] 86.6 fL 80-[address] [facility] Hematocrit Auto (Bld) [Volum e fraction]Ordered By: Dandy Sauer on 01-21-2023 Hematocrit (Bld) [Volume fraction] 34.3 % 40-54 [facility] INR in Blood by Coagulation assayOrdered By: Dandy Sauer on 01-21-2023 INR Coag (Bld) [Relative time] 4.2 {INR} [facility] Comment on above: CRITICAL VALUE VERIF IED. CALLED TO EVANS MARI (ER)01/21/23 1011 Zachary Gabriel.RESULTS READ BACK BY SAME. Ketones Test strip Ql (U)Ord ered By: Dandy Sauer on 01-21-2023 Ketones Ql (U) 15 mg/dl Negative [facility] Laboratory - Chemistry and C hemistry - challengeOrdered By: Dandy Sauer on 01-21-2023 ALP [Catalytic activity/Vol] 76 U/L 45-117 [facility] ALT [Catalytic activity/Vol] 25 U/L 16-61 [facility] CO2 [Moles/Vol] 12.0 mmol/L 21.0-32.0 [facility] Globulin (S) [Mass/Vol] 2.7 g/dL 2.2-4.[address] [facility] Urea nitrogen/Creatinine [Mass ratio] 62.8 mg/mg 10-20 [facility] Laboratory - CoagulationOrde red By: Dandy Sauer on 01-21-2023 PT Coag (PPP) [Time] 41.4 s 11.7-14.9 [facility] Laboratory - Hematology and Cell countsOrdered By: Dandy Sauer on 01-21-2023 Erythrocyte distribution width (RBC) [Entitic vol] 46.6 fL 35.1-43.9 [facility] Erythrocyte distribution width (RBC) [Ratio] 14.7 % 11.6-14.6 [facility] Immature granulocytes/100 WBC (Bld) 2.000 % 0.0-0.9 [facility] Comment on above: IG% - Immature Granu locytes (promyelocytes, myelocytes and metamyelocytes) > 1% indicates that a LEFT SHIFT is Present. MCH (RBC) [Entitic mass] 27.0 pg 27.0-32.0 [facility] Nucleated RBC/100 WBC (Bld) [Ratio] 0 % 0-5 [facility] Lower GI hemoglobin IA Ql (S tl)Ordered By: Dandy Sauer on 01-21-2023 Stool gastrointestinal hemoglobin detection by immunologic method Positive [facility] Stool Occult Blood (KLAUS) Positive [facility] Stool gastrointestinal hemoglobin detection by immunologic method Positive [facility] MCHC Auto (RBC) [Mass/Vol]Or dered By: Dandy Sauer on 01-21-2023 MCHC (RBC) [Mass/Vol] 31.2 g/dL 32-36 [facility] Mucus LM Ql (Urine sed)Order ed By: Dandy Sauer on 01-21-2023 Mucus Ql (Urine sed) 0 SEEN /hpf [facility] Nitrite Test strip Ql (U)Ord ered By: Dandy Sauer on 01-21-2023 Nitrite Ql (U) Negative Negative [facility] No Panel InformationOrdered By: Dandy Sauer on 01-21-2023 Estimated Creatinine Clearance Calc 36.25 ml/min [facility] Estimated GFR (MDRD) Amer 42 mL/min >60 [facility] Comment on above: GFR Calc Estimated GFR (MDRD) Non-Af Amer 35 mL/min >60 [facility] Comment on above: Non- GFR Calc Troponin I High Sensitivity 23 pg/mL 3.0-78.0 [facility] Comment on above: Please Note: New Thania t Units and Gender Specific Reference Ranges. For more information see Policy Stat Procedure Sylvester High Sensitivity Troponin (TNIH) and attachments. 23 pg/mL 3.0-78.0 [facility] 76 U/L 45-117 [facility] 25 U/L 16-61 [facility] Platelets bldOrdered By: Renetta Sauer on 01-21-2023 Platelets (Bld) [#/Vol] 389 10*3/uL 150-450 [facility] Protein Test strip Ql (U)Ord ered By: Dandy Sauer on 01-21-2023 Protein Ql (U) 15 mg/dl Negative [facility] Serum or plasma albumin antoine urement (mass/volume)Ordered By: Dandy Sauer on 01-21-2023 Albumin [Mass/Vol] 2.7 g/dL 3.2-5.0 [facility] Serum or plasma albumin/glob ulin mass ratioOrdered By: Dandy Sauer on 01-21-2023 Albumin/Globulin [Mass ratio] 1.0 {ratio} 0.9-2.4 [facility] Serum or plasma calcium antoine urement (mass/volume)Ordered By: Dandy Sauer on 01-21-2023 Calcium [Mass/Vol] 9.7 mg/dL 8.5-10.1 [facility] Serum or plasma creatinine m easurement (mass/volume)Ordered By: Dandy Sauer on 01-21-2023 Creatinine [Mass/Vol] 1.99 mg/dL 0.70-1.30 [facility] Comment on above: The validity of the calculated GFR & GFRAA in patients over 70 years has not been determined. Clinical correlation is essential. Serum or plasma urea nitroge n measurement (mass/volume)Ordered By: Dandy Sauer on 01-21-2023 Urea nitrogen [Mass/Vol] 125 mg/dL 7-18 [facility] Comment on above: Critical Result(s) C alled at: 09:53:00 01/21/2023 by: Aruna Morales to Shwetha. Results read back by same. Squamous epithelial cells de tection in urine sediment by light microscopyOrdered By: Dandy Sauer on 01-21-2023 Epithelial cells.squamous LM Ql (Urine sed) 0-5 SEEN /hpf 0-5 [facility] Thin prep Papanicolaou smear with manual screeningOrdered By: Dandy Sauer on 01-21-2023 Thin prep Papanicolaou smear with manual screening 9 U/L 15-37 [facility] Thin prep Papanicolaou smear with manual screening 17 5-15 [facility] Urine blood detectionOrdered By: Dandy Sauer on 01-21-2023 RBC Ql (U) Negative Negative [facility] RBC Ql (U) 0 SEEN /hpf 0-5 [facility] Urine clarityOrdered By: Renetta Sauer on 01-21-2023 Clarity (U) Clear Clear [facility] Urine color determinationOrd ered By: Dandy Sauer on 01-21-2023 Color (U) Yellow Yellow [facility] Urine glucose detectionOrder ed By: Dandy Sauer on 01-21-2023 Glucose Ql (U) 100 mg/dl Normal [facility] Urine leukocyte esterase det ection by dipstickOrdered By: Dandy Sauer on 01-21-2023 Leukocyte esterase Test strip Ql (U) Negative Negative [facility] Urine pHOrdered By: Dandy Sauer on 01-21-2023 pH (U) 5.0 [pH] 5.0 - 8.0 [facility] Urine sediment bacteria coun t by microscopy (number/high power field)Ordered By: Dandy Sauer on 01-21-2023 Bacteria LM.HPF (Urine sed) [#/Area] 0 /[HPF] None Seen [facility] Urine specific gravity measu rementOrdered By: Dandy Sauer on 01-21-2023 Specific gravity (U) [Rel density] 1.020 1.002-1.03 0 [facility] Urobilinogen Auto test strip Ql (U)Ordered By: Dandy Sauer on 01-21-2023 Urobilinogen Ql (U) Normal mg/dl Normal [facility] Glucose Glucometer (BldC) [M ass/Vol]Ordered By: Gabriel Giraldo on 01-08-2023 Glucose [Mass/Vol] 201 mg/dL 74-106 [facility] Comment on above: MANAGEMENT OF PATIEN T CARE PER NURSING PROTOCOL Absolute lymphocyte countOrd ered By: Karen Aly on 01-07-2023 Lymphocytes Auto (Unsp spec) [#/Vol] 1.83 10*3/uL 0.83-4.51 [facility] Basophil percentageOrdered B y: Karen Aly on 01-07-2023 Basophil percentage 121 mg/dL 74-106 [facility] Basophil percentage 6.0 g/dL 6.4-8.2 [facility] Basophil percentage 0.70 mg/dL 0.20-1.00 [facility] Basophil percentage 138 mmol/L 136-145 [facility] Basophil percentage 4.1 mmol/L 3.5-5.1 [facility] Basophil percentage 106 mmol/L 98-107 [facility] Basophils (Bld) [#/Vol] 9.3 10*3/uL 4.4-11.0 [facility] Basophils (Bld) [#/Vol] 6.4 10*3/uL 2.0-7.7 [facility] Basophils/100 WBC (Bld) 0.6 % 0-[address] [facility] Basophils/100 WBC (Bld) 69.0 % 47-70 [facility] Basophils/100 WBC (Bld) 2.4 % 0-5 [facility] Bilirubin [Mass/Vol] 0.70 mg/dL 0.20-1.00 [facility] Comment on above: For patients on eltr ombopag therapy, use of Dimension Sylvester TBIL is not recommended. Chloride [Moles/Vol] 106 mmol/L 98-107 [facility] Eosinophils/100 WBC (Bld) 2.4 % 0-5 [facility] Glucose [Mass/Vol] 121 mg/dL 74-106 [facility] Comment on above: Fasting Glucose resu lt from 100 to 125 mg/dL suggests IMPAIRED HOMEOSTASIS per A.D.A. criteria. Neutrophils (Bld) [#/Vol] 6.4 10*3/uL 2.0-7.7 [facility] Neutrophils/100 WBC (Bld) 69.0 % 47-70 [facility] Potassium [Moles/Vol] 4.1 mmol/L 3.5-5.1 [facility] Protein [Mass/Vol] 6.0 g/dL 6.4-8.2 [facility] Sodium [Moles/Vol] 138 mmol/L 136-145 [facility] WBC (Bld) [#/Vol] 9.3 10*3/uL 4.4-11.0 [facility] Blood erythrocytes count (nu mber/volume)Ordered By: White on 01-07-2023 RBC (Bld) [#/Vol] 4.90 10*6/uL 4.6-6.2 [facility] Blood hemoglobin measurement (mass/volume)Ordered By: White on 01-07-2023 Hemoglobin (Bld) [Mass/Vol] 13.1 g/dL 13.0-16. 5 [facility] Blood lymphocytes/100 leukoc ytesOrdered By: White on 01-07-2023 Lymphocytes/100 WBC (Bld) 19.8 % 19-41 [facility] Blood monocytes/100 leukocyt esOrdered By: White on 01-07-2023 Monocytes/100 WBC (Bld) 7.2 % 0-10 [facility] Blood platelet mean volumeOr dered By: Karen Aly on 01-07-2023 Platelet mean volume (Bld) [Entitic vol] 9.1 fL 6.2-12.0 [facility] Determination of erythrocyte mean corpuscular volume (MCV)Ordered By: Karen Aly on 01-07-2023 MCV (RBC) [Entitic vol] 83.5 fL 80-[address] [facility] Hematocrit Auto (Bld) [Volum e fraction]Ordered By: Karen Jermain on 01-07-2023 Hematocrit (Bld) [Volume fraction] 40.9 % 40-54 [facility] INR in Blood by Coagulation assayOrdered By: [facility] Jermain on 01-07-2023 INR Coag (Bld) [Relative time] 2.2 {INR} [facility] Laboratory - Chemistry and C hemistry - challengeOrdered By: [facility] Jermain on 01-07-2023 ALP [Catalytic activity/Vol] 90 U/L 45-117 [facility] ALT [Catalytic activity/Vol] 18 U/L 16-61 [facility] CO2 [Moles/Vol] 24.0 mmol/L 21.0-32.0 [facility] Globulin (S) [Mass/Vol] 3.1 g/dL 2.2-4.[address] [facility] Urea nitrogen/Creatinine [Mass ratio] 23.0 mg/mg 10-20 [facility] Laboratory - CoagulationOrde red By: Karen Aly on 01-07-2023 PT Coag (PPP) [Time] 24.8 s 11.7-14.9 [facility] Laboratory - Hematology and Cell countsOrdered By: [facility] Jermain on 01-07-2023 Erythrocyte distribution width (RBC) [Entitic vol] 43.7 fL 35.1-43.9 [facility] Erythrocyte distribution width (RBC) [Ratio] 14.5 % 11.6-14.6 [facility] Immature granulocytes/100 WBC (Bld) 1.000 % 0.0-0.9 [facility] Comment on above: IG% - Immature Granu locytes (promyelocytes, myelocytes and metamyelocytes) > 1% indicates that a LEFT SHIFT is Present. MCH (RBC) [Entitic mass] 26.7 pg 27.0-32.0 [facility] Nucleated RBC/100 [facility] (Bld) [[facility]] 0 [facility] [Mass/Vol]Or dered By: Karen Aly on 01-07-2023 MCHC (RBC) [Mass/Vol] 32.0 g/dL 32-36 [facility] No Panel InformationOrdered By: Karen Aly on 01-07-2023 Estimated Creatinine Clearance Calc 63.83 ml/min [facility] Estimated GFR (MDRD) Amer 81 mL/min >60 [facility] Comment on above: GFR Calc Estimated GFR (MDRD) Non-Af Amer 67 mL/min >60 [facility] Comment on above: Non- GFR Calc 26.7 pg 27.0-32.0 [facility] 14.5 % 11.6-14.6 [facility] 43.7 fl 35.1-43.9 [facility] 1.000 % 0.0-0.9 [facility] 0 % 0-5 [facility] 24.8 SECONDS 11.7-14.9 [facility] 67 mL/min >60 [facility] 81 mL/min >60 [facility] 63.83 ml/min [facility] 23.0 RATIO 10-20 [facility] 3.1 g/dL 2.2-4.2 [facility] 90 U/L 45-117 [facility] 18 U/L 16-61 [facility] 24.0 mmol/L 21.0-32.0 [facility] Platelets bldOrdered By: Dede Aly on 01-07-2023 Platelets (Bld) [#/Vol] 216 10*3/uL 150-450 [facility] Serum or plasma albumin antoine urement (mass/volume)Ordered By: Karen Aly on 01-07-2023 Albumin [Mass/Vol] 2.9 g/dL 3.2-5.0 [facility] Serum or plasma albumin/glob ulin mass ratioOrdered By: Karen Aly on 01-07-2023 Albumin/Globulin [Mass ratio] 0.9 {ratio} 0.9-2.4 [facility] Serum or plasma calcium antoine urement (mass/volume)Ordered By: Karen Aly on 01-07-2023 Calcium [Mass/Vol] 8.8 mg/dL 8.5-10.1 [facility] Serum or plasma creatinine m easurement (mass/volume)Ordered By: Karen Aly on 01-07-2023 Creatinine [Mass/Vol] 1.13 mg/dL 0.70-1.30 [facility] Comment on above: The validity of the calculated GFR & GFRAA in patients over 70 years has not been determined. Clinical correlation is essential. Serum or plasma urea nitroge n measurement (mass/volume)Ordered By: Karen Aly on 01-07-2023 Urea nitrogen [Mass/Vol] 26 mg/dL 7-18 [facility] Thin prep Papanicolaou smear with manual screeningOrdered By: Karen Aly on 01-07-2023 Thin prep Papanicolaou smear with manual screening 13 U/L 15-37 [facility] Thin prep Papanicolaou smear with manual screening 8 5-15 [facility] Basophil percentageOrdered B y: Karen Aly on 01-05-2023 Basophil percentage 87 mg/dL <200 [facility] Basophil percentage 116 mg/dL <199 [facility] Cholesterol [Mass/Vol] 87 mg/dL <200 [facility] Comment on above: <200 mg/dL Desirable 200-240 mg/dL Borderline >240 mg/dL High Risk Triglyceride [Mass/Vol] 116 mg/dL <199 [facility] Comment on above: The drugs N-Acetylcy steine and Metamizole may falsely depress this assay.Serum Triglycerides Reference Interval Normal <150 mg/dL Borderline high 150 - 199 mg/dL High 200 - 499 mg/dL Very High > or = 500 mg/dL No Panel InformationOrdered By: Karen Aly on 01-05-2023 Thyroid Stimulating Hormone (TSH) 1.13 uIU/mL 0.358-3.74 [facility] 1.13 uIU/mL 0.358-3.74 [facility] Serum or plasma cholesterol in HDL measurement (mass/volume)Ordered By: Karen Aly on 01-05-2023 Cholesterol in HDL [Mass/Vol] 37 mg/dL >40 [facility] Comment on above: The drugs N-Acetylcy steine and Metamizole may falsely depress this assay. Reference Range HDL <40 mg/dL Low HDL Cholesterol HDL >or= 60 mg/dL High HDL Cholesterol Serum or plasma cholesterol in VLDL measurement (mass/volume)Ordered By: Karen Aly on 01-05-2023 Cholesterol in VLDL [Mass/Vol] 23 mg/dL 5-40 [facility] Serum or plasma low density lipoprotein (LDL) cholesterol measurement (mass/volume)Ordered By: Karen Aly on 01-05-2023 Cholesterol in LDL [Mass/Vol] 27 mg/dL 0-130 [facility] Whole blood hemoglobin A1c/t otal hemoglobin ratio (mass fraction)Ordered By: Karen Aly on 01-05-2023 HbA1c (Bld) [Mass fraction] 5.8 % 3.8-5.6 [facility] Comment on above: Normal < 5.7 % Predi abetic 5.7 - 6.4 % Diabetic >or= 6.5 % Please note range changes. Absolute lymphocyte countOrd ered By: Dr. Roberts on 01-04-2023 Lymphocytes Auto (Unsp spec) [#/Vol] 1.31 10*3/uL 0.83-4.51 [facility] Assessment of wrist artery p atency prior to arterial punctureOrdered By: Dr. Aly on 01-04-2023 Arterial patency Wrist artery --pre arterial puncture N/A [facility] Bacteria identified Cx Nom ( U)Ordered By: Maggy Roberts on 01-04-2023 Culture, urine Positive [facility] Base excessOrdered By: Dr. Freddy pettit on 01-04-2023 Base excess Calc (BldV) [Moles/Vol] 0 mmol/L -2-2 [facility] Basophil percentageOrdered B y: Dr. Aly on 01-04-2023 Basophil percentage 23.7 mmol/L 22- [facility] Basophils/100 WBC (Bld) 96 % 95-[address] [facility] Ammonia (P) [Moles/Vol] 17.0 umol/L - [facility] Basophil percentageOrdered B y: Karen Aly on 01-04-2023 Basophil percentage 17.0 umol/L - [facility] Basophil percentageOrdered B y: Dr. Roberts on 01-04-2023 Basophil percentage 0 SEEN /hpf 0-5 [facility] Basophils/100 WBC (Bld) 0.4 % 0-1 [facility] Bilirubin [Mass/Vol] 0.70 mg/dL 0.20-1.00 [facility] Comment on above: For patients on eltr ombopag therapy, use of Dimension Sylvester TBIL is not recommended. Chloride [Moles/Vol] 105 mmol/L 98-107 [facility] Eosinophils/100 WBC (Bld) 1.7 % 0-5 [facility] Glucose [Mass/Vol] 133 mg/dL 74-106 [facility] Comment on above: Fasting Glucose resu lt greater than or equal to 126 mg/dL suggests DIABETES MELLITUS per A.D.A. criteria. Neutrophils (Bld) [#/Vol] 8.0 10*3/uL 2.0-7.7 [facility] Neutrophils/100 WBC (Bld) 78.3 % 47-70 [facility] Potassium [Moles/Vol] 4.2 mmol/L 3.5-5.1 [facility] Protein [Mass/Vol] 6.3 g/dL 6.4-8.2 [facility] Sodium [Moles/Vol] 139 mmol/L 136-145 [facility] WBC (Bld) [#/Vol] 10.2 10*3/uL 4.4-11.0 [facility] Bilirubin Test strip Ql (U)O rdered By: Dr. Roberts on 01-04-2023 Bilirubin Ql (U) Negative Negative [facility] [facility] Blood erythrocytes count (nu mber/volume)Ordered By: Dr. Roberts on 01-04-2023 RBC (Bld) [#/Vol] 5.09 10*6/uL 4.6-6.2 [facility] Blood hemoglobin measurement (mass/volume)Ordered By: Dr. Roberts on 01-04-2023 Hemoglobin (Bld) [Mass/Vol] 13.5 g/dL 13.0-16. 5 [facility] Blood lymphocytes/100 leukoc ytesOrdered By: Dr. Roberts on 01-04-2023 Lymphocytes/100 WBC (Bld) 12.8 % 19-41 [facility] Blood monocytes/100 leukocyt esOrdered By: Dr. Roberts on 01-04-2023 Monocytes/100 WBC (Bld) 5.9 % 0-[address] [facility] Blood platelet mean volumeOr dered By: Dr. Roberts on 01-04-2023 Platelet mean volume (Bld) [Entitic vol] 8.7 fL 6.2-12.0 [facility] CO2 (BldA) [Partial pressure ]Ordered By: Dr. Aly on 01-04-2023 CO2 (Bld) [Partial pressure] 33.9 mm[Hg] 35-45 [facility] Culture, urineOrdered By: Eddie Roberts on 01-04-2023 Bacteria identified Cx Nom (U) Positive [facility] Determination of erythrocyte mean corpuscular volume (MCV)Ordered By: Dr. Roberts on 01-04-2023 MCV (RBC) [Entitic vol] 82.1 fL 80-[address] [facility] Direct bilirubinOrdered By: Dr. Roberts on 01-04-2023 Bilirubin.direct [Mass/Vol] 0.20 mg/dL 0.00-0.3 0 [facility] Hematocrit Auto (Bld) [Volum e fraction]Ordered By: Dr. Roberts on 01-04-2023 Hematocrit (Bld) [Volume fraction] 41.8 % 40-54 [facility] INR in Blood by Coagulation assayOrdered By: Dr. Roberts on 01-04-2023 INR Coag (Bld) [Relative time] 3.1 {INR} [facility] Ketones Test strip Ql (U)Ord ered By: Dr. Roberts on 01-04-2023 Ketones Ql (U) Negative Negative [facility] Laboratory - Chemistry and C hemistry - challengeOrdered By: Karen Aly on 01-04-2023 Cobalamin (Vitamin B12) [Mass/Vol] 260 pg/mL 211-911 [facility] Laboratory - Chemistry and C hemistry - challengeOrdered By: Dr. Aly on 01-04-2023 Magnesium [Mass/Vol] 1.8 mg/dL 1.6-2.6 [facility] Laboratory - Chemistry and C hemistry - challengeOrdered By: Dr. Roberts on 01-04-2023 ALP [Catalytic activity/Vol] 102 U/L 45-117 [facility] ALT [Catalytic activity/Vol] 18 U/L 16-61 [facility] CO2 [Moles/Vol] 25.0 mmol/L 21.0-32.0 [facility] Globulin (S) [Mass/Vol] 3.2 g/dL 2.2-4.[address] [facility] Urea nitrogen/Creatinine [Mass ratio] 18.7 mg/mg 10-20 [facility] Laboratory - CoagulationOrde red By: Dr. Roberts on 01-04-2023 PT Coag (PPP) [Time] 32.6 s 11.7-14.9 [facility] Laboratory - Hematology and Cell countsOrdered By: Dr. Roberts on 01-04-2023 Erythrocyte distribution width (RBC) [Entitic vol] 42.3 fL 35.1-43.9 [facility] Erythrocyte distribution width (RBC) [Ratio] 14.2 % 11.6-14.6 [facility] Immature granulocytes/100 WBC (Bld) 0.900 % 0.0-0.9 [facility] Comment on above: IG% - Immature Granu locytes (promyelocytes, myelocytes and metamyelocytes) > 1% indicates that a LEFT SHIFT is Present. MCH (RBC) [Entitic mass] 26.5 pg 27.0-32.0 [facility] Nucleated RBC/100 WBC (Bld) [Ratio] 0 % 0-5 [facility] Laboratory - Microbiology an d Antimicrobial susceptibilityOrdered By: Maggy Roberts on 01-04-2023 Bacteria identified Cx Nom (Bld) No growth in 5 days. [facility] MCHC Auto (RBC) [Mass/Vol]Or dered By: Dr. Roberts on 01-04-2023 MCHC (RBC) [Mass/Vol] 32.3 g/dL 32-36 [facility] Mucus LM Ql (Urine sed)Order ed By: Dr. Roberts on 01-04-2023 Mucus Ql (Urine sed) 0 SEEN /hpf [facility] Nitrite Test strip Ql (U)Ord ered By: Dr. Roberts on 01-04-2023 Nitrite Ql (U) Negative Negative [facility] No Panel InformationOrdered By: Dr. Aly on 01-04-2023 Blood Gas Oxygen Percent 21 [facility] Blood Gas Sample Site R Br[facility] Blood Gas Specimen Type ART [facility] Blood Gas Total CO2 25 mmol/L [facility] Oxygen Delivery Device Room Air [facility] No Panel InformationOrdered By: Karen Aly on 01-04-2023 ART [facility] R Brach [facility] Room Air [facility] 21 [facility] 25 mmol/L [facility] 1.8 mg/dL 1.6-2.6 [facility] 260 pg/mL 211-911 [facility] No Panel InformationOrdered By: Maggy Roberts on 01-04-2023 No growth in 5 days. [facility] 7 pg/mL 3.0-78.0 [facility] No Panel InformationOrdered By: Dr. Roberts on 01-04-2023 Estimated Creatinine Clearance Calc 58.64 ml/min [facility] Estimated GFR (MDRD) Amer 74 mL/min >60 [facility] Comment on above: GFR Calc Estimated GFR (MDRD) Non-Af Amer 61 mL/min >60 [facility] Comment on above: Non- GFR Calc Troponin I High Sensitivity 7 pg/mL 3.0-78.0 [facility] Comment on above: Please Note: New Thania t Units and Gender Specific Reference Ranges. For more information see Policy Stat Procedure Sylvester High Sensitivity Troponin (TNIH) and attachments. Oxygen (BldA) [Partial press ure]Ordered By: Dr. Aly on 01-04-2023 Oxygen (Bld) [Partial pressure] 78 mmHG 75-100 [facility] Platelets bldOrdered By: Dr. Roberts on 01-04-2023 Platelets (Bld) [#/Vol] 228 10*3/uL 150-450 [facility] Protein Test strip Ql (U)Ord ered By: Dr. Roberts on 01-04-2023 Protein Ql (U) 15 mg/dl Negative [facility] Serum Treponema species anti body detectionOrdered By: Karen Aly on 01-04-2023 Treponema sp Ab Ql (S) Non-Reactive [facility] Serum or plasma albumin antoine urement (mass/volume)Ordered By: Dr. Roberts on 01-04-2023 Albumin [Mass/Vol] 3.1 g/dL 3.2-5.0 [facility] Serum or plasma calcium antoine urement (mass/volume)Ordered By: Dr. Roberts on 01-04-2023 Calcium [Mass/Vol] 8.6 mg/dL 8.5-10.1 [facility] Serum or plasma creatinine m easurement (mass/volume)Ordered By: Dr. Roberts on 01-04-2023 Creatinine [Mass/Vol] 1.23 mg/dL 0.70-1.30 [facility] Comment on above: The validity of the calculated GFR & GFRAA in patients over 70 years has not been determined. Clinical correlation is essential. Serum or plasma folate measu rement (mass/volume)Ordered By: Karen Aly on 01-04-2023 Folate [Mass/Vol] 4.40 ng/mL 3.1-55.4 [facility] Serum or plasma urea nitroge n measurement (mass/volume)Ordered By: Dr. Roberts on 01-04-2023 Urea nitrogen [Mass/Vol] 23 mg/dL 7-18 [facility] Serum procalcitonin measurem entOrdered By: Karen Aly on 01-04-2023 Procalcitonin [Mass/Vol] ng/mL 0.00-0.09 [facility] Comment on above: A procalcitonin (PCT [...] Ql (Urine sed) 0-5 SEEN /hpf 0-5 [facility] Thin prep Papanicolaou smear with manual screeningOrdered By: Dr. Roberts on 01-04-2023 Thin prep Papanicolaou smear with manual screening 13 U/L 15-37 [facility] Thin prep Papanicolaou smear with manual screening 9 5-15 [facility] Urine blood detectionOrdered By: Dr. Roberts on 01-04-2023 RBC Ql (U) 10 /ul Negative [facility] RBC Ql (U) 0-5 SEEN /hpf 0-5 [facility] Urine clarityOrdered By: Dr. Roberts on 01-04-2023 Clarity (U) Sl. Cloudy Clear [facility] Urine color determinationOrd ered By: Dr. Roberts on 01-04-2023 Color (U) Yellow Yellow [facility] Urine glucose detectionOrder ed By: Dr. Roberts on 01-04-2023 Glucose Ql (U) 100 mg/dl Normal [facility] Urine leukocyte esterase det ection by dipstickOrdered By: Dr. Roberts on 01-04-2023 Leukocyte esterase Test strip Ql (U) Negative Negative [facility] Urine pHOrdered By: Dr. Yaya gallo on 01-04-2023 pH (U) 6.0 [pH] 5.0 - 8.0 [facility] Urine sediment bacteria coun t by microscopy (number/high power field)Ordered By: Dr. Roberts on 01-04-2023 Bacteria LM.HPF (Urine sed) [#/Area] 0 /[HPF] None Seen [facility] Urine specific gravity measu rementOrdered By: Dr. Roberts on 01-04-2023 Specific gravity (U) [Rel density] 1.020 1.002-1.03 0 [facility] Urobilinogen Auto test strip Ql (U)Ordered By: Dr. Roberts on 01-04-2023 Urobilinogen Ql (U) 4 mg/dl Normal [facility] pH measurementOrdered By: Dr Jose Aly on 01-04-2023 pH (Unsp spec) 7.45 [pH] 7.35-7.45 [facility] Absolute lymphocyte counton 07-11-2022 Lymphocytes Auto (Unsp spec) [#/Vol] 1.98 10*3/uL 0.83-4.51 [facility] Work Phone: Basophil percentageon 2021 Basophils/100 WBC (Bld) 0.6 % 0-[address] [facility] Work Phone: Bilirubin [Mass/Vol] 0.90 mg/dL 0.20-1.00 [facility] Work Phone: Comment on above: For patients on eltr ombopag therapy, use of Dimension Sylvester TBIL is not recommended. Chloride [Moles/Vol] 105 mmol/L 98-107 [facility] Work Phone: Cholesterol [Mass/Vol] 102 mg/dL <200 [facility] Work Phone: Comment on above: <200 mg/dL Desirable 200-240 mg/dL Borderline >240 mg/dL High Risk Eosinophils/100 WBC (Bld) 4.1 % 0-5 [facility] Work Phone: Glucose [Mass/Vol] 103 mg/dL 74-106 [facility] Work Phone: Comment on above: Fasting Glucose resu lt from 100 to 125 mg/dL suggests IMPAIRED HOMEOSTASIS per A.D.A. criteria. Neutrophils (Bld) [#/Vol] 5.2 10*3/uL 2.0-7.7 [facility] Work Phone: Neutrophils/100 WBC (Bld) 63.5 % 47-70 [facility] Work Phone: Potassium [Moles/Vol] 3.5 mmol/L 3.5-5.1 [facility] Work Phone: Protein [Mass/Vol] 5.9 g/dL 6.4-8.2 [facility] Work Phone: Sodium [Moles/Vol] 138 mmol/L 136-145 [facility] Work Phone: Triglyceride [Mass/Vol] 124 mg/dL <[address] [facility] Work Phone: Comment on above: The drugs N-Acetylcy steine and Metamizole may falsely depress this assay.Serum Triglycerides Reference Interval Normal <150 mg/dL Borderline high 150 - 199 mg/dL High 200 - 499 mg/dL Very High > or = 500 mg/dL WBC (Bld) [#/Vol] 8.2 10*3/uL 4.4-11.0 [facility] Work Phone: Blood erythrocytes count (nu mber/volume)on 07-11-2022 RBC (Bld) [#/Vol] 4.75 10*6/uL 4.6-6.2 [facility] Work Phone: Blood hemoglobin measurement (mass/volume)on 07-11-2022 Hemoglobin (Bld) [Mass/Vol] 12.7 g/dL 13.0-16. 5 [facility] Work Phone: Blood lymphocytes/100 leukoc yteson 07-11-2022 Lymphocytes/100 WBC (Bld) 24.1 % 19-41 [facility] Work Phone: Blood monocytes/100 leukocyt eson 07-11-2022 Monocytes/100 WBC (Bld) 6.8 % 0-[address] [facility] Work Phone: Blood platelet mean volumeon 07-11-2022 Platelet mean volume (Bld) [Entitic vol] 9.2 fL 6.2-12.0 [facility] Work Phone: Determination of erythrocyte mean corpuscular volume (MCV)on 07-11-2022 MCV (RBC) [Entitic vol] 82.7 fL 80-[address] [facility] Work Phone: Glucose Glucometer (BldC) [M ass/Vol]on 07-11-2022 Glucose [Mass/Vol] 149 mg/dL 74-106 [facility] Work Phone: Comment on above: MANAGEMENT OF PATIEN T CARE PER NURSING PROTOCOL Hematocrit Auto (Bld) [Volum e fraction]on 07-11-2022 Hematocrit (Bld) [Volume fraction] 39.3 % 40-54 [facility] Work Phone: INR in Blood by Coagulation assayon 07-11-2022 INR Coag (Bld) [Relative time] 2.1 {INR} [facility] Work Phone: [phone] Laboratory - Chemistry and C hemistry - challengeon 07-11-2022 ALP [Catalytic activity/Vol] 106 U/L 45-117 [facility] Work Phone: [phone] ALT [Catalytic activity/Vol] 22 U/L 16-61 [facility] Work Phone: CO2 [Moles/Vol] 25.0 mmol/L 21.0-32.0 [facility] Work Phone: Globulin (S) [Mass/Vol] 2.9 g/dL 2.2-4.[address] [facility] Work Phone: [phone] Magnesium [Mass/Vol] 1.9 mg/dL 1.6-2.6 [facility] Work Phone: Urea nitrogen/Creatinine [Mass ratio] 17.7 mg/mg 10-20 [facility] Work Phone: Laboratory - Coagulationon 09-11-2021 PT Coag (PPP) [Time] 23.6 s 11.7-14.9 [facility] Work Phone: Laboratory - Hematology and Cell countson 07-11-2022 Erythrocyte distribution width (RBC) [Entitic vol] 44.0 fL 35.1-43.9 [facility] Work Phone: Erythrocyte distribution width (RBC) [Ratio] 14.6 % 11.6-14.6 [facility] Work Phone: Immature granulocytes/100 WBC (Bld) 0.900 % 0.0-0.9 [facility] Work Phone: Comment on above: IG% - Immature Granu locytes (promyelocytes, myelocytes and metamyelocytes) > 1% indicates that a LEFT SHIFT is Present. MCH (RBC) [Entitic mass] 26.7 pg 27.0-32.0 [facility] Work Phone: Nucleated RBC/100 WBC (Bld) [Ratio] 0 % 0-5 [facility] Work Phone: MCHC Auto (RBC) [Mass/Vol]on 07-11-2022 MCHC (RBC) [Mass/Vol] 32.3 g/dL 32-36 [facility] Work Phone: No Panel Informationon 07-11 Estimated Creatinine Clearance Calc 64.82 ml/min [facility] Work Phone: Estimated GFR (MDRD) Amer 81 mL/min >60 [facility] Work Phone: Comment on above: GFR Calc Estimated GFR (MDRD) Non-Af Amer 67 mL/min >60 [facility] Work Phone: Comment on above: Non- GFR Calc Platelets bldon 07-11-2022 Platelets (Bld) [#/Vol] 200 10*3/uL 150-450 [facility] Work Phone: Serum or plasma albumin antoine urement (mass/volume)on 07-11-2022 Albumin [Mass/Vol] 3.0 g/dL 3.2-5.0 [facility] Work Phone: Serum or plasma albumin/glob ulin mass ratioon 07-11-2022 Albumin/Globulin [Mass ratio] 1.0 {ratio} 0.9-2.4 [facility] Work Phone: Serum or plasma calcium antoine urement (mass/volume)on 07-11-2022 Calcium [Mass/Vol] 8.6 mg/dL 8.5-10.1 [facility] Work Phone: Serum or plasma cholesterol in HDL measurement (mass/volume)on 07-11-2022 Cholesterol in HDL [Mass/Vol] 36 mg/dL >40 [facility] Work Phone: Comment on above: The drugs N-Acetylcy steine and Metamizole may falsely depress this assay. Reference Range HDL <40 mg/dL Low HDL Cholesterol HDL >or= 60 mg/dL High HDL Cholesterol Serum or plasma cholesterol in VLDL measurement (mass/volume)on 07-11-2022 Cholesterol in VLDL [Mass/Vol] 25 mg/dL 5-40 [facility] Work Phone: Serum or plasma creatinine m easurement (mass/volume)on 07-11-2022 Creatinine [Mass/Vol] 1.13 mg/dL 0.70-1.30 [facility] Work Phone: Comment on above: The validity of the calculated GFR & GFRAA in patients over 70 years has not been determined. Clinical correlation is essential. Serum or plasma low density lipoprotein (LDL) cholesterol measurement (mass/volume)on 07-11-2022 Cholesterol in LDL [Mass/Vol] 41 mg/dL 0-130 [facility] Work Phone: Serum or plasma urea nitroge n measurement (mass/volume)on 07-11-2022 Urea nitrogen [Mass/Vol] 20 mg/dL 7-18 [facility] Work Phone: Thin prep Papanicolaou smear with manual screeningon 07-11-2022 Thin prep Papanicolaou smear with manual screening 23 U/L 15-37 [facility] Work Phone: Thin prep Papanicolaou smear with manual screening 8 5-15 [facility] Work Phone: No Panel Informationon 07-10 Troponin I High Sensitivity 103 pg/mL 3.0-78.0 [facility] Work Phone: Comment on above: Please Note: New Thania t Units and Gender Specific Reference Ranges. For more information see Policy Stat Procedure Sylvester High Sensitivity Troponin (TNIH) and attachments. Thyroid Stimulating Hormone (TSH) 1.03 uIU/mL 0.358-3.74 [facility] Work Phone: Basophil percentageon 2021 Bas[facility] 0-5 [facility] Work Phone: Bilirubin Test strip Ql (U)o n 07-09-2022 Bilirubin Ql (U) Negative Negative [facility] Work Phone: Hyaline casts LM.LPF (Urine sed) [#/Area]on 07-09-2022 Hyaline casts (Urine sed) [#/Area] 0 /[LPF] 0-5 [facility] Work Phone: Ketones Test strip Ql (U)on 07-09-2022 Ketones Ql (U) 5 mg/dl Negative [facility] Work Phone: Mucus LM Ql (Urine sed)on Mucus Ql (Urine sed) 1+ /hpf [facility] Work Phone: Nitrite Test strip Ql (U)on 07-09-2022 Nitrite Ql (U) Negative Negative [facility] Work Phone: Protein Test strip Ql (U)on 07-09-2022 Protein Ql (U) 30 mg/dl Negative [facility] Work Phone: Squamous epithelial cells de tection in urine sediment by light microscopyon 07-09-2022 Epithelial cells.squamous LM Ql (Urine sed) 0 SEEN /hpf 0-5 [facility] Work Phone: Urine blood detectionon 06-15 RBC Ql (U) 25 /ul Negative [facility] Work Phone: RBC Ql (U) 0-5 SEEN /hpf 0-5 [facility] Work Phone: Urine clarityon 07-09-2022 Clarity (U) Clear Clear [facility] Work Phone: Urine color determinationon 07-09-2022 Color (U) Yellow Yellow [facility] Work Phone: Urine glucose detectionon Glucose Ql (U) Normal mg/dl Normal [facility] Work Phone: Urine leukocyte esterase det ection by dipstickon 07-09-2022 Leukocyte esterase Test strip Ql (U) Negative Negative [facility] Work Phone: Urine pHon 07-09-2022 pH (U) 5.0 [pH] 5.0 - 8.0 [facility] Work Phone: Urine sediment bacteria coun t by microscopy (number/high power field)on 07-09-2022 Bacteria LM.HPF (Urine sed) [#/Area] 1 /[HPF] None Seen [facility] Work Phone: [phone] Urine specific gravity measu rementon 07-09-2022 Specific gravity (U) [Rel density] 1.025 1.002-1.03 0 [facility] Work Phone: Urobilinogen Auto test strip Ql (U)on 07-09-2022 Urobilinogen Ql (U) 1 mg/dl Normal [facility] Work Phone: INR in Blood by Coagulation assayon 03-07-2022 INR Coag (Bld) [Relative time] 2.9 {INR} [facility] Laboratory - Coagulationon 0 03-07-2022 PT Coag (PPP) [Time] 30.2 s 11.7-14.9 [facility] Work Phone: Absolute lymphocyte counton 03-02-2022 Lymphocytes Auto (Unsp spec) [#/Vol] 1.26 10*3/uL 0.83-4.51 [facility] Work Phone: Basophil percentageon 2021 Basophil percentage 0 SEEN /hpf 0-5 [facility] Work Phone: Basophils/100 WBC (Bld) 0.4 % 0-[address] [facility] Work Phone: [phone] Chloride [Moles/Vol] 105 mmol/L 98-107 [facility] Work Phone: Eosinophils/100 WBC (Bld) 2.5 % 0-5 [facility] Work Phone: Glucose [Mass/Vol] 158 mg/dL 74-106 [facility] Work Phone: Comment on above: Fasting Glucose resu lt greater than or equal to 126 mg/dL suggests DIABETES MELLITUS per A.D.A. criteria. Neutrophils (Bld) [#/Vol] 8.8 10*3/uL 2.0-7.7 [facility] Work Phone: Neutrophils/100 WBC (Bld) 78.8 % 47-70 [facility] Work Phone: Potassium [Moles/Vol] 4.2 mmol/L 3.5-5.1 [facility] Work Phone: Sodium [Moles/Vol] 138 mmol/L 136-145 [facility] Work Phone: WBC (Bld) [#/Vol] 11.2 10*3/uL 4.4-11.0 [facility] Work Phone: Bilirubin Test strip Ql (U)o n 03-02-2022 Bilirubin Ql (U) Negative Negative [facility] Work Phone: Blood erythrocytes count (nu mber/volume)on 03-02-2022 RBC (Bld) [#/Vol] 5.15 10*6/uL 4.6-6.2 [facility] Work Phone: Blood hemoglobin measurement (mass/volume)on 03-02-2022 Hemoglobin (Bld) [Mass/Vol] 13.8 g/dL 13.0-16. 5 [facility] Work Phone: Blood lymphocytes/100 leukoc yteson 03-02-2022 Lymphocytes/100 WBC (Bld) 11.2 % 19-41 [facility] Work Phone: Blood monocytes/100 leukocyt eson 03-02-2022 Monocytes/100 WBC (Bld) 5.7 % 0-[address] [facility] Work Phone: Blood platelet mean volumeon 03-02-2022 Platelet mean volume (Bld) [Entitic vol] 9.0 fL 6.2-12.0 [facility] Work Phone: Determination of erythrocyte mean corpuscular volume (MCV)on 03-02-2022 MCV (RBC) [Entitic vol] 82.3 fL 80-[address] [facility] Work Phone: Glucose Glucometer (BldC) [M ass/Vol]on 08-19-2022 Glucose [Mass/Vol] 158 mg/dL 74-106 [facility] Work Phone: Comment on above: MANAGEMENT OF PATIEN T CARE PER NURSING PROTOCOL Hematocrit Auto (Bld) [Volum e fraction]on 03-02-2022 Hematocrit (Bld) [Volume fraction] 42.4 % 40-54 [facility] Work Phone: Hyaline casts LM.LPF (Urine sed) [#/Area]on 03-02-2022 Hyaline casts (Urine sed) [#/Area] 0 /[LPF] 0-5 [facility] Work Phone: INR in Blood by Coagulation assayon 03-02-2022 INR Coag (Bld) [Relative time] 4.4 {INR} [facility] Work Phone: Comment on above: CRITICAL VALUE VERIF IED. CALLED TO [id number]/19/[id number] Brie Ma.RESULTS READ BACK BY SAME . Ketones Test strip Ql (U)on 03-02-2022 Ketones Ql (U) 5 mg/dl Negative [facility] Work Phone: Laboratory - Chemistry and C hemistry - challengeon 03-02-2022 CO2 [Moles/Vol] 23.0 mmol/L 21.0-32.0 [facility] Work Phone: Urea nitrogen/Creatinine [Mass ratio] 16.9 mg/mg 10-20 [facility] Work Phone: Laboratory - Coagulationon 0 03-02-2022 PT Coag (PPP) [Time] 41.4 s 11.7-14.9 [facility] Work Phone: Laboratory - Hematology and Cell countson 03-02-2022 Erythrocyte distribution width (RBC) [Entitic vol] 41.4 fL 35.1-43.9 [facility] Work Phone: Erythrocyte distribution width (RBC) [Ratio] 14.0 % 11.6-14.6 [facility] Work Phone: Immature granulocytes/100 WBC (Bld) 1.400 % 0.0-0.9 [facility] Work Phone: Comment on above: IG% - Immature Granu locytes (promyelocytes, myelocytes and metamyelocytes) > 1% indicates that a LEFT SHIFT is Present. MCH (RBC) [Entitic mass] 26.8 pg 27.0-32.0 [facility] Work Phone: Nucleated RBC/100 WBC (Bld) [Ratio] 0 % 0-5 [facility] Work Phone: MCHC Auto (RBC) [Mass/Vol]on 03-02-2022 MCHC (RBC) [Mass/Vol] 32.5 g/dL 32-36 [facility] Work Phone: Mucus LM Ql (Urine sed)on Mucus Ql (Urine sed) 3+ /hpf [facility] Work Phone: Nitrite Test strip Ql (U)on 03-02-2022 Nitrite Ql (U) Negative Negative [facility] Work Phone: No Panel Informationon 03-02 Estimated Creatinine Clearance Calc 49.49 ml/min [facility] Work Phone: Estimated GFR (MDRD) Amer 60 mL/min >60 [facility] Work Phone: Comment on above: GFR Calc Estimated GFR (MDRD) Non-Af Amer 49 mL/min >60 [facility] Work Phone: Comment on above: Non- GFR Calc Troponin I High Sensitivity 11 pg/mL 3.0-78.0 [facility] Work Phone: Comment on above: Please Note: New Thania t Units and Gender Specific Reference Ranges. For more information see Policy Stat Procedure Sylvester High Sensitivity Troponin (TNIH) and attachments. Platelets bldon 03-02-2022 Platelets (Bld) [#/Vol] 269 10*3/uL 150-450 [facility] Work Phone: Protein Test strip Ql (U)on 03-02-2022 Protein Ql (U) 30 mg/dl Negative [facility] Work Phone: Serum or plasma calcium antoine urement (mass/volume)on 03-02-2022 Calcium [Mass/Vol] 9.4 mg/dL 8.5-10.1 [facility] Work Phone: Serum or plasma creatinine m easurement (mass/volume)on 03-02-2022 Creatinine [Mass/Vol] 1.48 mg/dL 0.70-1.30 [facility] Work Phone: Comment on above: The validity of the calculated GFR & GFRAA in patients over 70 years has not been determined. Clinical correlation is essential. Serum or plasma urea nitroge n measurement (mass/volume)on 03-02-2022 Urea nitrogen [Mass/Vol] 25 mg/dL 7-18 [facility] Work Phone: Squamous epithelial cells de tection in urine sediment by light microscopyon 03-02-2022 Epithelial cells.squamous LM Ql (Urine sed) 0-5 SEEN /hpf 0-5 [facility] Work Phone: Thin prep Papanicolaou smear with manual screeningon 03-02-2022 Thin prep Papanicolaou smear with manual screening 10 5-15 [facility] Work Phone: Urine blood detectionon 02-12 RBC Ql (U) 10 /ul Negative [facility] Work Phone: RBC Ql (U) 0-5 SEEN /hpf 0-5 [facility] Work Phone: Urine clarityon 03-02-2022 Clarity (U) Clear Clear [facility] Work Phone: Urine color determinationon 03-02-2022 Color (U) Yellow Yellow [facility] Work Phone: Urine glucose detectionon Glucose Ql (U) 50 mg/dl Normal [facility] Work Phone: Urine leukocyte esterase det ection by dipstickon 03-02-2022 Leukocyte esterase Test strip Ql (U) Negative Negative [facility] Work Phone: Urine pHon 03-02-2022 pH (U) 5.0 [pH] 5.0 - 8.0 [facility] Work Phone: Urine sediment bacteria coun t by microscopy (number/high power field)on 03-02-2022 Bacteria LM.HPF (Urine sed) [#/Area] 2 /[HPF] None Seen [facility] Work Phone: Urine specific gravity measu rementon 03-02-2022 Specific gravity (U) [Rel density] 1.025 1.002-1.03 0 [facility] Work Phone: Urobilinogen Auto test strip Ql (U)on 03-02-2022 Urobilinogen Ql (U) Normal mg/dl Normal [facility] Work Phone: ECHOon 01-09-2022 [facility] CNPNon 01-02-2022 CNPN Telephone (VICTORIANO) RICHARD ROY ([id number]) 1945 M Date Time Provider Department 01/02/22 JUSTINA MONIQUE During your visit today, we recorded the following information about you: Justina Garcia LPN 01/02/2022 7:43 AM Signed ----- Message from Justina Monique APRN.APPLICATION SUPPORT TECHNICIAN sent at 01/02/2022 7:38 AM EDT [...] Date Reviewed: 01/01/2022 Reviewed by: Justina Monique APRN.APPLICATION SUPPORT TECHNICIAN - Fully Assessed Reason for Visit: [...] mouth once daily. - blood sugar diagnostic (FavbuyUCH ULTRA TEST) test strip Test blood sugar(s) [...] Encounter Status:Closed by JUSTINA GARCIA on 01/02/22 [facility] CBC W Auto Differential pane l (Bld)on 01-01-2022 Abs Immature Gran 0.15 k/uL High <0.10 k/uL [facility] Basophils (Bld) [#/Vol] 0.06 10*3/uL <0.11 k/uL [facility] Basophils/100 WBC (Bld) 0.5 % C [facility] Differential cell count method Nom (Bld) Auto [facility] Eosinophils (Bld) [#/Vol] 0.39 10*3/uL <0.46 k/ uL [facility] Eosinophils/100 WBC (Bld) 3.1 % [facility] Erythrocyte distribution width (RBC) [Ratio] 14.5 % 11.5 - 15.0 % [facility] Hematocrit (Bld) [Volume fraction] 46.6 % 39.0 - 51.0 % [facility] Hemoglobin (Bld) [Mass/Vol] 14.5 g/dL 13.0 - 17.0 g/dL [facility] Immature Gran % 1.2 % [facility] Lymphocytes (Bld) [#/Vol] 1.81 10*3/uL 1. 00 - 4.00 k/uL [facility] Lymphocytes/100 WBC (Bld) 14.5 % [facility] MCH (RBC) [Entitic mass] 26.6 pg 26. 0 - 34.0 pg [facility] MCHC (RBC) [Mass/Vol] 31.1 g/dL 30.5 - 36.0 g/dL [facility] MCV (RBC) [Entitic vol] 85.3 fL 80.0 - 100.0 fL [facility] Monocytes (Bld) [#/Vol] 0.86 10*3/uL <0.87 k/uL [facility] Monocytes/100 WBC (Bld) 6.9 % [facility] Neutrophils (Bld) [#/Vol] 9.20 10*3/uL High 1. 45 - 7.50 k/uL [facility] Neutrophils/100 WBC (Bld) 73.8 % [facility] Nucleated RBC (Bld) [#/Vol] 10*3/uL <0.01 k/ uL [facility] Nucleated RBC/100 WBC (Bld) [Ratio] 0.0 /100 WBC [facility] Platelet mean volume (Bld) [Entitic vol] 9.7 fL 9.0 - 12.7 fL [facility] Platelets (Bld) [#/Vol] 287 10*3/uL 150 - 400 k/uL [facility] RBC (Bld) [#/Vol] 5.46 10*6/uL 4.20 - 6.00 m/uL [facility] WBC (Bld) [#/Vol] 12.47 10*3/uL High 3.70 - 11.00 k/uL [facility] Comprehensive metabolic 2000 panelon 01-01-2022 Albumin [Mass/Vol] 4.2 g/dL 3.9 - 4.9 g/dL [facility] ALP [Catalytic activity/Vol] 96 U/L 38 - 113 U/L [facility] ALT [Catalytic activity/Vol] 29 U/L 10 - 54 U/L [facility] Anion gap [Moles/Vol] 12 mmol/L 9 - 18 mmol/L [facility] AST [Catalytic activity/Vol] 20 U/L 14 - 40 U/L [facility] Bilirubin [Mass/Vol] 0.6 mg/dL 0.2 - 1 .3 mg/dL [facility] Calcium [Mass/Vol] 9.4 mg/dL 8.5 - 10. 2 mg/dL [facility] Chloride [Moles/Vol] 101 mmol/L 97 - 10 5 mmol/L [facility] CO2 [Moles/Vol] 25 mmol/L 22 - 30 mmol/L [facility] Creatinine [Mass/Vol] 1.20 mg/dL 0.73 - 1.22 mg/dL [facility] Estimated Glomerular Filtration Rate 63 mL/min/1.73m >=60 mL/min/1.7 3m [facility] Glucose [Mass/Vol] 118 mg/dL High 74 - 99 mg/dL [facility] Potassium [Moles/Vol] 4.4 mmol/L 3.7 - 5.1 mmol/L [facility] Protein [Mass/Vol] 6.6 g/dL 6.3 - 8.0 g/dL [facility] Sodium [Moles/Vol] 138 mmol/L 136 - 144 mmol/L [facility] Urea nitrogen [Mass/Vol] 15 mg/dL 9 - 24 mg/dL [facility] PSA/PROSTSPECAG SCRNon 01-01 Prostate specific Ag [Mass/Vol] 1.75 ng/mL <2.60 ng/mL [facility] UA DIP, URINE (POC)on 2021 BILIRUBIN UA (POCT) Negative Negative [facility] CLARITY UA (POCT) Clear [facility] COLOR UA (POCT) Dark yellow [facility] GLUCOSE UA (POCT) 100 mg/dL Abnormal Negative mg/dL [facility] HEMOGLOBIN/BLOOD UA (POCT) Trace-intact Abnormal Negativ e [facility] KETONE UA (POCT) Negative Negative mg/dL [facility] LEUKOCYTES UA (POCT) Negative Negative [facility] NITRITE UA (POCT) Negative Negative [facility] PH UA (POCT) 5.5 4.5 - 8.0 [facility] Protein Ql (U) 30 mg/dL Abnormal Negative mg/dL [facility] SPECIFIC GRAVITY UA (POCT) >=1.030 1 .005 - 1.030 [facility] UROBILINOGEN UA (POCT) 1.0 E.U./dL Lanette l E.U./dL [facility] VITAMIN B12 BLOODon 01-02-20 Cobalamin (Vitamin B12) [Mass/Vol] 377 pg/mL 232-1,245 pg/mL [facility] Absolute lymphocyte counton 12-29-2021 Lymphocytes Auto (Unsp spec) [#/Vol] 1.56 10*3/uL 0.83-4.51 [facility] Work Phone: BCIDon 12-29-2021 Acinetobacter justen-baumanii complex Not detected Normal Not Detected [facility] ([place]) Comment on above: Performed By: #### B JIN #### [place] [address] Bacteroides fragilis Not detected Normal Not Detected [facility] ([place] Comment on above: Performed By: #### B JIN #### [place] [address] BCID Comment See Comment Normal [facility] ([place] Comment on above: Result Comment: Anti microbial [...] follow. Performed By: #### B JIN #### [place] [address] Kellie albicans Not detected Normal Not Detected [facility] ([place] Comment on above: Performed By: #### B JIN #### [facility] [address] [place] [address] Kellie auris Not detected Normal Not Detected [facility] ([place]) Comment on above: Performed By: #### B JIN #### [facility] [address] [place] [address] Kellie glabrata Not detected Normal Not Detected [facility] ([place] Comment on above: Performed By: #### B JIN #### [facility] [address] [place] [address] Kellie krusei Not detected Normal Not Detected [facility] ([place] Comment on above: Performed By: #### B JIN #### [place] [address] Kellie parapsilosis Not detected Normal Not Detected [facility] ([place] Comment on above: Performed By: #### B JIN #### [place] [address] Kellie tropicalis Not detected Normal Not Detected [facility] ([place] Comment on above: Performed By: #### B JIN #### [place] [address] Cryptococcus neoformans-gattii Not detected Normal Not Detected [facility] ([place] Comment on above: Performed By: #### B JIN #### [place] [address] CTX-M (ESBL) Not Applicable Normal Not Detected [facility] ([place] Comment on above: Performed By: #### B JIN #### [place] [address] E. Coli Not detected Normal Not Detected [facility] ([place] Comment on above: Performed By: #### B JIN #### [facility] [address] [place] [address] Enterobacter cloacae Complex Not detected Normal Not Detected [facility] ([place] Comment on above: Performed By: #### B JIN #### [facility] [address] [place] [address] Enterobacterales Not detected Normal Not Detected [facility] ([place] Comment on above: Performed By: #### B JIN #### [place] [address] Enterococcus faecalis Not detected Normal Not Detected [facility] ([place] Comment on above: Performed By: #### B JIN #### [facility] [address] [place] [address] Enterococcus faecium Not detected Normal Not Detected [facility] ([place] Comment on above: Performed By: #### B JIN #### [place] [address] Haemophilus influenzae Not detected Normal Not Detected [facility] ([place] Comment on above: Performed By: #### B JIN #### [place] [address] IMP (Carbapenemase) Not Applicable Normal Not Detected [facility] ([place] Comment on above: Performed By: #### B JIN #### [place] [address] Klebsiella aerogenes Not detected Normal Not Detected [facility] ([place] Comment on above: Performed By: #### B JIN #### [place] [address] Klebsiella oxytoca Not detected Normal Not Detected [facility] ([place] Comment on above: Performed By: #### B JIN #### [place] [address] Klebsiella pneumoniae group Not detected Normal Not Detected [facility] ([place] Comment on above: Performed By: #### B JIN #### [place] [address] KPC (Carbapenemase) Not Applicable Normal Not Detected [facility] ([place] Comment on above: Performed By: #### B JIN #### [place] [address] Listeria monocytogenes Not detected Normal Not Detected [facility] ([place] Comment on above: Performed By: #### B JIN #### [place] [address] MCR-1 (Colistin Resistance) Not Applicable Normal Not Detected [facility] ([place] Comment on above: Performed By: #### B JIN #### [place] [address] Mec A/C Detected Abnormal Not Detected [facility] ([place] Comment on above: Performed By: #### B JIN #### [facility] [address] [place] [address] Mec A/C-MREJ (MRSA) Not Applicable Normal Not Detected [facility] ([place] Comment on above: Performed By: #### B JIN #### [facility] [address] [place] [address] NDM (Carbapenemase) Not Applicable Normal Not Detected [facility] ([place] Comment on above: Performed By: #### B JIN #### [facility] [address] [place] [address] Neisseria meningitidis (Encapsalated) Not detected Normal Not Detected [facility] ([place] Comment on above: Performed By: #### B JIN #### [place] [address] OXA-48 like (Carbapenemase) Not Applicable Normal Not Detected [facility] ([place] Comment on above: Performed By: #### B JIN #### [place] [address] Proteus Not detected Normal Not Detected [facility] ([place] Comment on above: Performed By: #### B JIN #### [place] [address] Pseudomonas aeruginosa Not detected Normal Not Detected [facility] ([place] Comment on above: Performed By: #### B JIN #### [place] [address] S. agalactiae Org specific cx Ql (Vag fld) Not detected Normal Not Detected [facility] ([place] Comment on above: Performed By: #### B JIN #### [facility] [address] [place] [address] Salmonella species Not detected Normal Not Detected [facility] ([place] Comment on above: Performed By: #### B JIN #### [place] [address] Serratia marcescens Not detected Normal Not Detected [facility] ([place] Comment on above: Performed By: #### B JIN #### [address] [address] Staphylococcus Detected Abnormal Not Detected [facility] ([place] Comment on above: Performed By: #### B JIN #### [address] [address] Staphylococcus aureus Not detected Normal Not Detected [facility] ([place] Comment on above: Result Comment: If S taphylococcus aureus is Detected, an Infectious Disease physician consult is required on identification. Performed By: #### B JIN #### [place] [address] Staphylococcus epidermidis Detected Abnormal N ot Detected [facility] ([place] Comment on above: Performed By: #### B JIN #### [place] [address] Staphylococcus lugdunensis Not detected Normal N ot Detected [facility] ([place] Comment on above: Performed By: #### B JIN #### [place] [address] Stenotropomonas maltophilia Not detected Normal Not Detected [facility] ([place] Comment on above: Performed By: #### B JIN #### [place] [address] Streptococcus Not detected Normal Not Detected [facility] ([place] Comment on above: Performed By: #### B JIN #### [address] [address] Streptococcus pneumoniae Not detected Normal Not Detected [facility] ([place] Comment on above: Performed By: #### B JIN #### [place] [address] Streptococcus pyogenes Not detected Normal Not Detected [facility] ([place] Comment on above: Performed By: #### B JIN #### [place] [id number] Van A/B Not Applicable Normal Not Detected [facility] ([place] Comment on above: Performed By: #### B JIN #### [address] [address] VIM (Carbapenemase) Not Applicable Normal Not Detected [facility] ([place] Comment on above: Performed By: #### B JIN #### [facility] [address] [place] [id number] Basophil percentageon 2021 Basophils/100 WBC (Bld) 0.3 % 0-[address] [facility] Work Phone: Chloride [Moles/Vol] 108 mmol/L 98-107 [facility] Work Phone: Eosinophils/100 WBC (Bld) 3.2 % 0-5 [facility] Work Phone: [phone] Glucose [Mass/Vol] 109 mg/dL 74-106 [facility] Work Phone: Comment on above: Fasting Glucose resu lt from 100 to 125 mg/dL suggests IMPAIRED HOMEOSTASIS per A.D.A. criteria. Neutrophils (Bld) [#/Vol] 6.6 10*3/uL 2.0-7.7 [facility] Work Phone: Neutrophils/100 WBC (Bld) 70.4 % 47-70 [facility] Work Phone: Potassium [Moles/Vol] 4.1 mmol/L 3.5-5.1 [facility] Work Phone: Sodium [Moles/Vol] 140 mmol/L 136-145 [facility] Work Phone: WBC (Bld) [#/Vol] 9.4 10*3/uL 4.4-11.0 [facility] Work Phone: Blood erythrocytes count (nu mber/volume)on 12-29-2021 RBC (Bld) [#/Vol] 4.61 10*6/uL 4.6-6.2 [facility] Work Phone: Blood hemoglobin measurement (mass/volume)on 12-29-2021 Hemoglobin (Bld) [Mass/Vol] 12.4 g/dL 13.0-16. 5 [facility] Work Phone: Blood lymphocytes/100 leukoc yteson 12-29-2021 Lymphocytes/100 WBC (Bld) 16.7 % 19-41 [facility] Work Phone: [phone] Blood monocytes/100 leukocyt eson 12-29-2021 Monocytes/100 WBC (Bld) 8.7 % 0-[address] [facility] Work Phone: Blood platelet mean volumeon 12-29-2021 Platelet mean volume (Bld) [Entitic vol] 9.3 fL 6.2-12.0 [facility] Work Phone: Determination of erythrocyte mean corpuscular volume (MCV)on 12-29-2021 MCV (RBC) [Entitic vol] 82.9 fL 80-[address] [facility] Work Phone: Glucose Glucometer (BldC) [M ass/Vol]on 12-29-2021 Glucose [Mass/Vol] 129 mg/dL 74-106 [facility] Work Phone: Comment on above: MANAGEMENT OF PATIEN T CARE PER NURSING PROTOCOL Hematocrit Auto (Bld) [Volum e fraction]on 12-29-2021 Hematocrit (Bld) [Volume fraction] 38.2 % 40-54 [facility] Work Phone: Laboratory - Chemistry and C hemistry - challengeon 12-29-2021 CO2 [Moles/Vol] 27.0 mmol/L 21.0-32.0 [facility] Work Phone: Urea nitrogen/Creatinine [Mass ratio] 16.5 mg/mg 10-20 [facility] Work Phone: Laboratory - Hematology and Cell countson 12-29-2021 Erythrocyte distribution width (RBC) [Entitic vol] 42.5 fL 35.1-43.9 [facility] Work Phone: Erythrocyte distribution width (RBC) [Ratio] 14.2 % 11.6-14.6 [facility] Work Phone: Immature granulocytes/100 WBC (Bld) 0.700 % 0.0-0.9 [facility] Work Phone: Comment on above: IG% - Immature Granu locytes (promyelocytes, myelocytes and metamyelocytes) > 1% indicates that a LEFT SHIFT is Present. MCH (RBC) [Entitic mass] 26.9 pg 27.0-32.0 [facility] Work Phone: Nucleated RBC/100 WBC (Bld) [Ratio] 0 % 0-5 [facility] Work Phone: MCHC Auto (RBC) [Mass/Vol]on 12-29-2021 MCHC (RBC) [Mass/Vol] 32.5 g/dL 32-36 [facility] Work Phone: No Panel Informationon 12-29 Estimated Creatinine Clearance Calc 71.11 ml/min [facility] Work Phone: Estimated GFR (MDRD) Amer 91 mL/min >60 [facility] Work Phone: Comment on above: GFR Calc Estimated GFR (MDRD) Non-Af Amer 75 mL/min >60 [facility] Work Phone: Comment on above: Non- GFR Calc Platelets bldon 12-29-2021 Platelets (Bld) [#/Vol] 177 10*3/uL 150-450 [facility] Work Phone: Serum or plasma calcium antoine urement (mass/volume)on 12-29-2021 Calcium [Mass/Vol] 8.4 mg/dL 8.5-10.1 [facility] Work Phone: Serum or plasma creatinine m easurement (mass/volume)on 12-29-2021 Creatinine [Mass/Vol] 1.03 mg/dL 0.70-1.30 [facility] Work Phone: Comment on above: The validity of the calculated GFR & GFRAA in patients over 70 years has not been determined. Clinical correlation is essential. Serum or plasma urea nitroge n measurement (mass/volume)on 12-29-2021 Urea nitrogen [Mass/Vol] 17 mg/dL 7-18 [facility] Work Phone: Thin prep Papanicolaou smear with manual screeningon 12-29-2021 Thin prep Papanicolaou smear with manual screening 5 5-15 [facility] Work Phone: Basophil percentageon 2021 Lactate [Moles/Vol] 1.9 mmol/L 0.4-2.0 [facility] Work Phone: COon 12-28-2021 Carbon Monoxide Level See Comments Normal A [facility] ([place]) Comment on above: Order Comment: See S eparate Report Performed By: #### L IP, MG, TROPHS, CK, LAC, GFR, CO, CMP ####[address] [address] Laboratory - Chemistry and C hemistry - challengeon 12-28-2021 Magnesium [Mass/Vol] 1.8 mg/dL 1.6-2.6 [facility] Work Phone: No Panel Informationon 12-28 Troponin I High Sensitivity 23 pg/mL 3.0-78.0 [facility] Work Phone: Comment on above: Please Note: New Thania t Units and Gender Specific Reference Ranges. For more information see Policy Stat Procedure Sylvester High Sensitivity Troponin (TNIH) and attachments. .Auto Diffon 12-27-2021 Basophil, Absolute 0.1 10 3/mcL Normal 0.0-0.2 [facility] ([place]) Comment on above: Performed By: #### L IP, MG, TROPHS, CK, LAC, GFR, CO, CMP #### [address] [address] Basophils/100 WBC (Bld) 0.4 % Normal 0.0-2.5 [facility] ([place] Comment on above: Performed By: #### L IP, MG, TROPHS, CK, LAC, GFR, CO, CMP #### [address] [address] Eosinophil, Absolute 0.1 10 3/mcL Normal 0.0-0.4 [facility] ([place] Comment on above: Performed By: #### L IP, MG, TROPHS, CK, LAC, GFR, CO, CMP #### [address] [place] [address] Eosinophils/100 WBC (Bld) 0.7 % Normal 0.0-7.0 [facility] ([place] Comment on above: Performed By: #### L IP, MG, TROPHS, CK, LAC, GFR, CO, CMP #### [address] [address] Lymphocyte, Absolute 1.4 10 3/mcL Normal 0.8-3.9 [facility] ([place] Comment on above: Performed By: #### L IP, MG, TROPHS, CK, LAC, GFR, CO, CMP #### [address] [address] Lymphocytes/100 WBC (Bld) 9.6 % Low 10.0-50.0 [facility] ([place] Comment on above: Performed By: #### L IP, MG, TROPHS, CK, LAC, GFR, CO, CMP #### [address] [address] Monocyte, Absolute 0.8 10 3/mcL Normal 0.2-1.0 [facility] ([place] Comment on above: Performed By: #### L IP, MG, TROPHS, CK, LAC, GFR, CO, CMP #### [address] [address] Monocytes/100 WBC (Bld) 5.3 % Normal 1.7-13.0 [facility] ([place] Comment on above: Performed By: #### L IP, MG, TROPHS, CK, LAC, GFR, CO, CMP #### [address] [address] Neutrophils/100 WBC (Bld) 84.0 % High 37.0-80.0 [facility] ([place] Comment on above: Performed By: #### L IP, MG, TROPHS, CK, LAC, GFR, CO, CMP #### [address] [address] .GFRon 12-27-2021 GFR 43 ml/min/1.73sqm Normal [facility] ([place] Comment on above: Result Comment: GFR Population [...] CK, LAC, GFR, CO, CMP ####[address] [place], [place] [address] GFR Non- 35 ml/min/1.73sqm Normal [facility] ([place] Comment on above: Result Comment: GFR Population [...] TROPHS, CK, LAC, GFR, CO, CMP ####[address] [place], [place] [address] .MDWon 12-27-2021 Monocyte Distribution Width 15.91 Normal 0.00-20. 00 [facility] ([place] Comment on above: Result Comment: For ED adult patients suspected of sepsis, MDW<=20.0 does not rule out sepsis or risk of sepsis Performed By: #### L IP, MG, TROPHS, CK, LAC, GFR, CO, CMP ####[address] [place], [place] [address] .NEUABSon 12-27-2021 Neutrophil, Absolute 12.6 10 3/mcL High 2.9-6.2 [facility] ([place]) Comment on above: Performed By: #### L IP, MG, TROPHS, CK, LAC, GFR, CO, CMP ####[address] [place], [place] [address] Basophil percentageon 2021 Basophil percentage 3.8 mg/dL 2.5-4.9 [facility] Work Phone: Bilirubin [Mass/Vol] 0.80 mg/dL 0.20-1.00 [facility] [facility] Work Phone: Comment on above: For patients on eltr ombopag therapy, use of Dimension Sylvester TBIL is not recommended. Protein [Mass/Vol] 6.3 g/dL 6.4-8.2 [facility] Work Phone: CBCon 12-27-2021 Erythrocyte distribution width (RBC) [Ratio] 14.9 % High 11.5-14.5 [facility] ([place]) Comment on above: Performed By: #### L IP, MG, TROPHS, CK, LAC, GFR, CO, CMP #### [place] [address] [address] Hematocrit (Bld) [Volume fraction] 43.2 % Normal 42.0-52.0 [facility] ([place]) Comment on above: Performed By: #### L IP, MG, TROPHS, CK, LAC, GFR, CO, CMP #### [address] [address] Hgb 14.4 G/dL Normal 14.0-18.0 [facility] ([place] Comment on above: Performed By: #### L IP, MG, TROPHS, CK, LAC, GFR, CO, CMP #### [id number] [place], [place] [address] MCH (RBC) [Entitic mass] 26.8 pg Low 27.0-31.2 [facility] ([place] Comment on above: Performed By: #### L IP, MG, TROPHS, CK, LAC, GFR, CO, CMP #### [address] [address] MCHC 33.4 G/dL Normal 31.8-35.4 [facility] ([place] Comment on above: Performed By: #### L IP, MG, TROPHS, CK, LAC, GFR, CO, CMP #### [address] [address] MCV (RBC) [Entitic vol] 80.2 fL Normal 80.0-94.0 A [facility] ([place]) Comment on above: Performed By: #### L IP, MG, TROPHS, CK, LAC, GFR, CO, CMP #### [address] [address] Platelet 305 10 3/mcL Normal 130-400 [facility] ([place] Comment on above: Performed By: #### L IP, MG, TROPHS, CK, LAC, GFR, CO, CMP #### [address] [address] Platelet mean volume (Bld) [Entitic vol] 7.5 fL Normal 7.4-10.4 [facility] ([place] Comment on above: Performed By: #### L IP, MG, TROPHS, CK, LAC, GFR, CO, CMP #### [address] [address] RBC 5.39 10 6/mcL Normal 4.04-6.13 [facility] ([place] Comment on above: Performed By: #### L IP, MG, TROPHS, CK, LAC, GFR, CO, CMP #### [address] [address] WBC 15.0 10 3/mcL High 4.6-10.8 [facility] ([place] Comment on above: Performed By: #### L IP, MG, TROPHS, CK, LAC, GFR, CO, CMP #### [address], [place] [address] CKon 12-27-2021 CK [Catalytic activity/Vol] 220 U/L Normal 39-308 [facility] ([place] Comment on above: Performed By: #### L IP, MG, TROPHS, CK, LAC, GFR, CO, CMP ####[place] [address] [place], [place] [address] CMPon 12-27-2021 Albumin Level 3.8 G/dL Normal 3.4-4.8 [facility] ([place] Comment on above: Performed By: #### L IP, MG, TROPHS, CK, LAC, GFR, CO, CMP ####[place] [address] [place], [place] [address] Albumin/Globulin [Mass ratio] 1.4 {ratio} Normal 1.1-2.5 [facility] ([place] Comment on above: Performed By: #### L IP, MG, TROPHS, CK, LAC, GFR, CO, CMP ####[place] [address] [place], [place] [address] ALP [Catalytic activity/Vol] 105 U/L Normal 40-135 [facility] ([place] Comment on above: Performed By: #### L IP, MG, TROPHS, CK, LAC, GFR, CO, CMP ####[place] [address] [place], [place] [address] ALT [Catalytic activity/Vol] 20 U/L Normal 16-63 [facility] ([place] Comment on above: Performed By: #### L IP, MG, TROPHS, CK, LAC, GFR, CO, CMP ####[place] [address] [place], [place] [address] AST [Catalytic activity/Vol] 16 U/L Normal 10-40 [facility] ([place] Comment on above: Performed By: #### L IP, MG, TROPHS, CK, LAC, GFR, CO, CMP ####Abbey [address] [place], [place] [address] Bili Total 0.8 mg/dL Normal 0.2-1.0 [facility] ([place] Comment on above: Result Comment: Use of this assay is not recommended for patients undergoing treatment with eltrombopag due to the potential for falsely elevated results. Performed By: #### L IP, MG, TROPHS, CK, LAC, GFR, CO, CMP ####Abbey [address] [place], [place] [address] BUN/Creatinine Ratio 12 ratio Normal 7-27 [facility] ([place]) Comment on above: Performed By: #### L IP, MG, TROPHS, CK, LAC, GFR, CO, CMP ####Abbey [address] [place], [place] [address] Calcium [Mass/Vol] 9.4 mg/dL Normal 8.4-10.2 [facility] ([place]) Comment on above: Performed By: #### L IP, MG, TROPHS, CK, LAC, GFR, CO, CMP ####[place]bey [address] [place], [place] [address] Chloride [Moles/Vol] 104 mmol/L Normal 98-107 [facility] ([place]) Comment on above: Performed By: #### L IP, MG, TROPHS, CK, LAC, GFR, CO, CMP ####[place]bey [address] [place], [place] [address] CO2 [Moles/Vol] 22 mmol/L Low 23-31 [facility] ([place] Comment on above: Performed By: #### L IP, MG, TROPHS, CK, LAC, GFR, CO, CMP ####[place] [address] [place], [place] [address] Creatinine [Mass/Vol] 1.88 mg/dL High 0.70-1.30 [facility] ([place]) Comment on above: Performed By: #### L IP, MG, TROPHS, CK, LAC, GFR, CO, CMP ####[place] [address] [place], [place] [address] Electrolyte Balance 13.0 mEq/L Normal 4.0-15.0 [facility] ([place]) Comment on above: Performed By: #### L IP, MG, TROPHS, CK, LAC, GFR, CO, CMP ####Ab[place] [address] [place], [place] [address] Globulin 2.8 G/dL Normal [facility] ([place] Comment on above: Performed By: #### L IP, MG, TROPHS, CK, LAC, GFR, CO, CMP ####[place] [address] [place], [place] [address] Glucose [Mass/Vol] 205 mg/dL High 83-110 [facility] ([place]) Comment on above: Performed By: #### L IP, MG, TROPHS, CK, LAC, GFR, CO, CMP ####[place] [address] [place], [place] [address] Potassium [Moles/Vol] 5.2 mmol/L High 3.5-5.1 [facility] ([place] Comment on above: Performed By: #### L IP, MG, TROPHS, CK, LAC, GFR, CO, CMP ####Abbey [address] [place], [place] [address] Sodium [Moles/Vol] 139 mmol/L Normal 136-145 [facility] ([place]) Comment on above: Performed By: #### L IP, MG, TROPHS, CK, LAC, GFR, CO, CMP ####[place] [address] [place], [place] [address] Total Protein 6.6 G/dL Normal 6.4-8.2 [facility] ([place] Comment on above: Performed By: #### L IP, MG, TROPHS, CK, LAC, GFR, CO, CMP ####[place] [address] [place], [place] [address] Urea nitrogen [Mass/Vol] 23 mg/dL High 7-18 [facility] ([place] Comment on above: Performed By: #### L IP, MG, TROPHS, CK, LAC, GFR, CO, CMP ####[place]bey [address] [place], [place] [address] [id number] 12-27-2021 Date of Onset [id number] Invalid Interpretation Code [facility] ([place] Comment on above: Performed By: #### C OVD19, FLURSV #### [place] [address] Employed in Healthcare No [facility] ([place] Comment on above: Performed By: #### C OVD19, FLURSV #### [place] [address] First Test No [facility] ([place] Comment on above: Performed By: #### C OVD19, FLURSV #### [place] [address] Hospitalized No [facility] ([place] Comment on above: Performed By: #### C OVD19, FLURSV #### [place] [address] ICU No [facility] ([place] Comment on above: Performed By: #### C OVD19, FLURSV #### [place] [address] Not [facility] ([place] Comment on above: Performed By: #### C OVD19, FLURSV #### [place] [address] Resides in Congregate Care Setting No [facility] ([place] Comment on above: Performed By: #### C OVD19, FLURSV #### [place] [address] SARS-CoV-2 (COVID-19) RNA ANGELY+probe Ql (Unsp spec) Positive Abnormal Negative [facility] ([place] Comment on above: Performed By: #### C OVD19, FLURSV #### [place] [address] SARS-CoV-2 (COVID-19) RNA ANGELY+probe Ql (Unsp spec) [facility] ([place] Comment on above: Result Comment: Posi tive [...] or from non-specific signals in the assay. IntooBR SARS-CoV-2 Assay is a Real-Time reverse-transcriptase polymerase [...] Performed By: #### C OVD19, FLURSV #### [address] [address] Symptomatic as Defined by CDC No Normal [facility] [place] Comment on above: Performed By: #### C OVD19, FLURSV #### [address] [address] [address] HEAD OR BRAIN W/O CONTRAS Ton [...] 7:53:25 PM Ordering Provider: SREEDHAR LINARES Normal [facility] [place]) Carboxyhemoglobinon 12-28-19 Carboxyhemoglobin (Bld) [Mass/Vol] 1.9 % 0.0-1.5 [facility] Work Phone: Comment on above: * NON-SMOKER RANGE 1 .6 - 5.0% * LIGHT SMOKER RANGE 5.1 - 9.0% * HEAVY SMOKER RANGE FLURSVon 12-27-2021 Flu A PCR (AO) Negative Normal Negative [facility] ([place] Comment on above: Result Comment: Posi tive [...] virus (RSV) nucleic acid in nasopharyngeal swab (AUTOMOTIVE PRODUCT SPECIALIST) specimens from patients with signs and symptoms of respiratory infection in conjunction with clinical and laboratory findings. The test is intended for use as an aid in the differential diagnosis of influenza A virus, influenza B virus, and RSV in humans and is not intended to detect influenza C. Performed By: #### C OVD19, FLURSV #### [address] [place], [place] [address] Flu B PCR (AO) Negative Normal Negative [facility] ([place] Comment on above: Result Comment: Posi tive [...] REPEAT COLLECTION AND TESTING IS RECOMMENDED. [employer] Flu A/B & RSV Assay is a real-time polymerase chain reaction (PCR) based qualitative in vitro diagnostic test for the direct detection and differentiation of influenza A virus, influenza B virus, and respiratory syncytial virus (RSV) nucleic acid in nasopharyngeal swab (AUTOMOTIVE PRODUCT SPECIALIST) specimens from patients with signs and symptoms of respiratory infection in conjunction with clinical and laboratory findings. The test is intended for use as an aid in the differential diagnosis of influenza A virus, influenza B virus, and RSV in humans and is not intended to detect influenza C. Performed By: #### C OVD19, FLURSV #### [place] [address] [address] [place], [place] [address] RSV PCR (AO) Negative Normal Negative [facility] ([place] Comment on above: Result Comment: Posi tive [...] REPEAT COLLECTION AND TESTING IS RECOMMENDED. [employer] Flu A/B & RSV Assay is a real-time polymerase chain reaction (PCR) based qualitative in vitro diagnostic test for the direct detection and differentiation of influenza A virus, influenza B virus, and respiratory syncytial virus (RSV) nucleic acid in nasopharyngeal swab (AUTOMOTIVE PRODUCT SPECIALIST) specimens from patients with signs and symptoms of respiratory infection in conjunction with clinical and laboratory findings. The test is intended for use as an aid in the differential diagnosis of influenza A virus, influenza B virus, and RSV in humans and is not intended to detect influenza C. Performed By: #### C OVD19, FLURSV #### [place] [address] [place], [place] [address] INR in Blood by Coagulation assayon 12-27-2021 INR Coag (Bld) [Relative time] 2.4 {INR} [facility] Work Phone: LABORATORYOrdered By: Ramiro Rascon [...] definite cause of disease. Laboratories within the [facility] and its territories are [...] Lactic Acid Lvl 3.0 mmol/L High 0.4-2.0 [facility] ([place] Comment on above: Performed By: #### L AC #### [place] [address] [place], [place] [address] Lactic Acid Lvl 4.6 mmol/L High 0.4-2.0 [facility] ([place] Comment on above: Performed By: #### L IP, MG, TROPHS, CK, LAC, GFR, CO, CMP ####Abbey [address] [place], [place] [address] LIPon 12-27-2021 Lipase Level 67 U/L Low 73-393 [facility] ([place]) Comment on above: Performed By: #### L IP, MG, TROPHS, CK, LAC, GFR, CO, CMP ####Abbey [address] [place], [place] [address] Laboratory - Chemistry and C hemistry - challengeon 12-27-2021 ALP [Catalytic activity/Vol] 89 U/L 45-117 [facility] Work Phone: ALT [Catalytic activity/Vol] 26 U/L 16-61 [facility] Work Phone: Globulin (S) [Mass/Vol] 3.1 g/dL 2.2-4.[address] [facility] Work Phone: Laboratory - Coagulationon 0 12-27-2021 PT Coag (PPP) [Time] 25.5 s 11.7-14.9 [facility] Work Phone: MGon 12-27-2021 Magnesium [Mass/Vol] 1.3 mg/dL Low 1.8-2.4 [facility] ([place]) Comment on above: Performed By: #### L IP, MG, TROPHS, CK, LAC, GFR, CO, CMP ####[address] [address] PROon 12-27-2021 INR Coag (PPP) [Relative time] 2.7 {INR} High 0.9-1.2 [facility] ([place]) Comment on above: Result Comment: Tony dard [...] Performed By: #### P RO #### [place] [address] [address] PT Coag (PPP) [Time] 31.6 s High 9.7-14.3 [facility] ([place]) Comment on above: Performed By: #### P RO #### [place] [address] [address] Serum or plasma albumin antoine urement (mass/volume)on 12-27-2021 Albumin [Mass/Vol] 3.2 g/dL 3.2-5.0 [facility] Work Phone: Serum or plasma albumin/glob ulin mass ratioon 12-27-2021 Albumin/Globulin [Mass ratio] 1.0 {ratio} 0.9-2.4 [facility] Work Phone: TROPHSon 12-27-2021 Troponin I High Sensitivity 11.1 ng/L Normal 0.0-76.2 [facility] ([place] Comment on above: Performed By: #### L IP, MG, TROPHS, CK, LAC, GFR, CO, CMP #### [address] [place], [place] [address] Thin prep Papanicolaou smear with manual screeningon 12-27-2021 Thin prep Papanicolaou smear with manual screening 44 U/L 15-37 [facility] Work Phone: XR CHEST 1 [...] 6:23:59 PM Ordering Provider: SREEDHAR LINARES Normal [facility] ([place]) Absolute lymphocyte counton 12-06-2021 Lymphocytes Auto (Unsp spec) [#/Vol] 0.42 10*3/uL 0.83-4.51 [facility] Work Phone: Basophil percentageon 2021 Basophils/100 WBC (Bld) 0.4 % 0-[address] [facility] Work Phone: Chloride [Moles/Vol] 105 mmol/L 98-107 [facility] Work Phone: Eosinophils/100 WBC (Bld) 2.3 % 0-5 [facility] Work Phone: [phone] Glucose [Mass/Vol] 138 mg/dL 74-106 [facility] Work Phone: Comment on above: Fasting Glucose resu lt greater than or equal to 126 mg/dL suggests DIABETES MELLITUS per A.D.A. criteria. Neutrophils (Bld) [#/Vol] 7.5 10*3/uL 2.0-7.7 [facility] Work Phone: [phone] Neutrophils/100 WBC (Bld) 81.2 % 47-70 [facility] Work Phone: Potassium [Moles/Vol] 3.7 mmol/L 3.5-5.1 [facility] Work Phone: Sodium [Moles/Vol] 138 mmol/L 136-145 [facility] Work Phone: WBC (Bld) [#/Vol] 9.3 10*3/uL 4.4-11.0 [facility] Work Phone: Basophil percentage 0-5 SEEN /hpf 0-5 [facility] Work Phone: Bilirubin Test strip Ql (U)o n 12-06-2021 Bilirubin Ql (U) Negative Negative [facility] Work Phone: Blood erythrocytes count (nu mber/volume)on 12-06-2021 RBC (Bld) [#/Vol] 5.07 10*6/uL 4.6-6.2 [facility] Work Phone: Blood hemoglobin measurement (mass/volume)on 12-06-2021 Hemoglobin (Bld) [Mass/Vol] 13.8 g/dL 13.0-16. 5 [facility] Work Phone: Blood lymphocytes/100 leukoc yteson 12-06-2021 Lymphocytes/100 WBC (Bld) 4.5 % 19-41 [facility] Work Phone: Blood manual differential co mment interpretation (narrative result)on 12-06-2021 Manual differential comment Ori (Bld) [Interp] SCANNED [facility] Work Phone: Comment on above: LYMPHOPENIA NOTED Blood monocytes/100 leukocyt eson 12-06-2021 Monocytes/100 WBC (Bld) 8.6 % 0-[address] [facility] Work Phone: Blood platelet mean volumeon 12-06-2021 Platelet mean volume (Bld) [Entitic vol] 9.2 fL 6.2-12.0 [facility] Work Phone: Determination of erythrocyte mean corpuscular volume (MCV)on 12-06-2021 MCV (RBC) [Entitic vol] 83.0 fL 80-[address] [facility] Work Phone: Hematocrit Auto (Bld) [Volum e fraction]on 12-06-2021 Hematocrit (Bld) [Volume fraction] 42.1 % 40-54 [facility] Work Phone: INR in Blood by Coagulation assayon 12-06-2021 INR Coag (Bld) [Relative time] 3.3 {INR} [facility] Work Phone: Ketones Test strip Ql (U)on 12-06-2021 Ketones Ql (U) 5 mg/dl Negative [facility] Work Phone: Laboratory - Chemistry and C hemistry - challengeon 12-06-2021 CO2 [Moles/Vol] 24.0 mmol/L 21.0-32.0 [facility] Work Phone: Urea nitrogen/Creatinine [Mass ratio] 14.2 mg/mg 10-20 [facility] Work Phone: Laboratory - Coagulationon 0 12-06-2021 PT Coag (PPP) [Time] 32.9 s 11.7-14.9 [facility] Work Phone: Laboratory - Hematology and Cell countson 12-06-2021 Erythrocyte distribution width (RBC) [Entitic vol] 42.4 fL 35.1-43.9 [facility] Work Phone: Erythrocyte distribution width (RBC) [Ratio] 14.0 % 11.6-14.6 [facility] Work Phone: Immature granulocytes/100 WBC (Bld) 3.000 % 0.0-0.9 [facility] Work Phone: Comment on above: IG% - Immature Granu locytes (promyelocytes, myelocytes and metamyelocytes) > 1% indicates that a LEFT SHIFT is Present. MCH (RBC) [Entitic mass] 27.2 pg 27.0-32.0 [facility] Work Phone: Nucleated RBC/100 WBC (Bld) [Ratio] 0 % 0-5 [facility] Work Phone: MCHC Auto (RBC) [Mass/Vol]on 12-06-2021 MCHC (RBC) [Mass/Vol] 32.8 g/dL 32-36 [facility] Work Phone: Mucus LM Ql (Urine sed)on Mucus Ql (Urine sed) 0 SEEN /hpf [facility] Work Phone: Nitrite Test strip Ql (U)on 12-06-2021 Nitrite Ql (U) Negative Negative [facility] Work Phone: No Panel Informationon 12-06 Estimated Creatinine Clearance Calc 61.03 ml/min [facility] Work Phone: Estimated GFR (MDRD) Amer 76 mL/min >60 [facility] Work Phone: Comment on above: GFR Calc Estimated GFR (MDRD) Non-Af Amer 63 mL/min >60 [facility] Work Phone: Comment on above: Non- GFR Calc Troponin I High Sensitivity 5 pg/mL 3.0-78.0 [facility] Work Phone: Comment on above: Please Note: New Thania t Units and Gender Specific Reference Ranges. For more information see Policy Stat Procedure Sylvester High Sensitivity Troponin (TNIH) and attachments. SARS-CoV-2 & FLU Antigen (Rapid) SARS-CoV-2 (COVID 19) [facility] Work Phone: Platelets bldon 12-06-2021 Platelets (Bld) [#/Vol] 229 10*3/uL 150-450 [facility] Work Phone: Protein Test strip Ql (U)on 12-06-2021 Protein Ql (U) 30 mg/dl Negative [facility] Work Phone: Serum or plasma calcium antoine urement (mass/volume)on 12-06-2021 Calcium [Mass/Vol] 8.9 mg/dL 8.5-10.1 [facility] Work Phone: Serum or plasma creatinine m easurement (mass/volume)on 12-06-2021 Creatinine [Mass/Vol] 1.20 mg/dL 0.70-1.30 [facility] Work Phone: Comment on above: The validity of the calculated GFR & GFRAA in patients over 70 years has not been determined. Clinical correlation is essential. Serum or plasma urea nitroge n measurement (mass/volume)on 12-06-2021 Urea nitrogen [Mass/Vol] 17 mg/dL 7-18 [facility] Work Phone: Squamous epithelial cells de tection in urine sediment by light microscopyon 12-06-2021 Epithelial cells.squamous LM Ql (Urine sed) 0-5 SEEN /hpf 0-5 [facility] Work Phone: Thin prep Papanicolaou smear with manual screeningon 12-06-2021 Thin prep Papanicolaou smear with manual screening 9 5-15 [facility] Work Phone: Urine blood detectionon 11-13 RBC Ql (U) 10 /ul Negative [facility] Work Phone: RBC Ql (U) 0 SEEN /hpf 0-5 [facility] Work Phone: Urine clarityon 12-06-2021 Clarity (U) Clear Clear [facility] Work Phone: Urine color determinationon 12-06-2021 Color (U) Yellow Yellow [facility] Work Phone: Urine glucose detectionon Glucose Ql (U) 100 mg/dl Normal [facility] Work Phone: Urine leukocyte esterase det ection by dipstickon 12-06-2021 Leukocyte esterase Test strip Ql (U) 25 /ul Negative [facility] Work Phone: Urine pHon 12-06-2021 pH (U) 5.0 [pH] 5.0 - 8.0 [facility] Work Phone: Urine sediment bacteria coun t by microscopy (number/high power field)on 12-06-2021 Bacteria LM.HPF (Urine sed) [#/Area] 1 /[HPF] None Seen [facility] Work Phone: Urine specific gravity measu rementon 12-06-2021 Specific gravity (U) [Rel density] 1.025 1.002-1.03 0 [facility] Work Phone: Urobilinogen Auto test strip Ql (U)on 12-06-2021 Urobilinogen Ql (U) 1 mg/dl Normal [facility] Work Phone: GLUCOSE, BLOOD (POC)on 10-10 Glucose [Mass/Vol] 121 mg/dL Abnormal 74 - 99 mg/dL [facility] Glucose [Mass/Vol] 144 mg/dL Abnormal 74 - 99 mg/dL [facility] No Panel Informationon 10-10 [facility] CTA CHEST (GATED) W IVCONon 07-27-2021 CTA CHEST (GATED) W IVCON * * *Final Rep ort* * * DATE OF EXAM: Jul 27 2021 11:00AM [facility] 0125 - CTA [...] The arch vessel branching pattern is normal. 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 Cholelithiasis without findings of acute cholecystitis. Wic Site Coordinator: BLAKE Transcribe Date/Time: Jul 27 2021 11:21A Dictated by : BALBIR RAYGOZA MD This examination was interpreted and the report reviewed and electronically signed by: SADE (more content not included)... Normal [facility] Laboratory - Microbiology an d Antimicrobial susceptibility Bacteria identified Cx Nom (Bld) No growth in 5 days. [facility] Work Phone: No Panel Information SARS-CoV-2 & FLU Antigen (Rapid) SARS-CoV-2 (COVID 19) [facility] Work Phone: Vital Signs Date Time Vital Sign Value Performing Clinician Faci lity 10-12-2024 13:12-0400 Body height 182.[address] Luis Caldera MD Work Phone: [facility] 10-12-2024 13:12-0400 Body mass index (BMI) [Ratio] 32.3 kg/m2 Dr. Luis Caldera MD Work Phone: [facility] 10-12-2024 13:12-0400 Body weight 107.[address] Luis Caldera MD Work Phone: [phone] [place] [address] 10-12-2024 13:12-0400 Diastolic blood pressure 57 mm[Hg] Dr. Luis Caldera MD Work Phone: [phone] [place] [address] 10-12-2024 13:12-0400 Heart rate 65 /min Dr. Luis Caldera MD Work Phone: [phone] [place] [address] 10-12-2024 13:12-0400 Respiratory rate 18 /min Dr. Luis Caldera MD Work Phone: [phone] [place] [address] 10-12-2024 13:12-0400 SaO2% (BldA) [Mass fraction] 99 % Dr. Luis Caldera MD Work Phone: [phone] [place] [address] 10-12-2024 13:12-0400 Systolic blood pressure 117 mm[Hg] Dr. Luis Caldera MD Work Phone: [phone] [place] [address] 10-07-2023 14:18-0400 Body height 182.[address] Luis Caldera Work Phone: [phone] [place] [address] 10-07-2023 14:18-0400 Body mass index (BMI) [Ratio] 29.8 kg/m2 Dr. Luis Caldera Work Phone: [phone] [place] [address] 10-07-2023 14:18-0400 Body weight 99.[address] Luis Caldera Work Phone: [phone] [place] [address] 10-07-2023 14:18-0400 Diastolic blood pressure 66 mm[Hg] Dr. Luis Caldera Work Phone: [phone] [place] [address] 10-07-2023 14:18-0400 Heart rate 67 /min Dr. Luis Caldera Work Phone: [phone] [place] [address] 10-07-2023 14:18-0400 Respiratory rate 16 /min Dr. Luis Caldera Work Phone: [phone] [place] [address] 10-07-2023 14:18-0400 Systolic blood pressure 112 mm[Hg] Dr. Luis Caldera Work Phone: 5(373)308-674312 [place] [address] 06-03-2023 12:50-0500 Body temperature 97.2 [degF] Dr. Luis Caldera Work Phone: 6(061)636-861058 [place] [address] 06-03-2023 12:50-0500 Diastolic blood pressure 90 mm[Hg] Dr. Luis Caldera Work Phone: 9(092)895-609712 [place] [address] 06-03-2023 12:50-0500 Heart rate 85 /min Dr. Luis Caldera Work Phone: 7(358)576-940058 [place] [address] 06-03-2023 12:50-0500 Respiratory rate 16 /min Dr. Luis Caldera Work Phone: 3(392)171-201058 [place] [address] 06-03-2023 12:50-0500 SaO2% (BldA) [Mass fraction] 97 % Dr. Luis Caldear Work Phone: 2(861)166-999558 [place] [address] 06-03-2023 12:50-0500 Systolic blood pressure 134 mm[Hg] Dr. Luis Caldera Work Phone: 6(544)507-328958 [place] [address] 06-03-2023 11:45-0500 Body height 182.[address] Luis Caldera Work Phone: 9(343)284-839558 [place] [address] 06-03-2023 11:45-0500 Body mass index (BMI) [Ratio] 30.5 kg/m2 Dr. Luis Caldera Work Phone: 4(320)850-695612 [place] [address] 06-03-2023 11:45-0500 Body weight 102.[address] Luis Caldera Work Phone: 0(623)982-086812 [place] [address] 03-27-2023 13:51-0400 Body height 185.[address] Maggy Roberts Work Phone: [facility] 03-27-2023 13:51-0400 Body mass index (BMI) [Ratio] 34.7 kg/m2 Dr. Maggy Roberts Work Phone: [facility] 03-27-2023 13:51-0400 Body weight 119.[address] Maggy Roberts Work Phone: [facility] 03-27-2023 13:51-0400 Diastolic blood pressure 78 mm[Hg] Dr. Maggy Roberts Work Phone: [facility] 03-27-2023 13:51-0400 Heart rate 97 /min Dr. Maggy Roberts Work Phone: [facility] 03-27-2023 13:51-0400 Respiratory rate 18 /min Dr. Maggy Roberts Work Phone: 7(212)309-010550 [place] [address] 03-27-2023 13:51-0400 SaO2% (BldA) [Mass fraction] 98 % Dr. Maggy Roberts Work Phone: 3(690)913-733750 [place] [address] 03-27-2023 13:51-0400 Systolic blood pressure 118 mm[Hg] Dr. Maggy Roberts Work Phone: 9(944)001-942650 [place] [address] 02-13-2023 15:02-0400 Body temperature 97 [degF] Dr. Maggy Roberts Work Phone: 7(800)271-528650 [place] [address] 02-13-2023 15:02-0400 Diastolic blood pressure 70 mm[Hg] Dr. Maggy Roberts Work Phone: [facility] 02-13-2023 15:02-0400 Heart rate 82 /min Dr. Maggy Roberts Work Phone: [facility] 02-13-2023 15:02-0400 Respiratory rate 16 /min Dr. Maggy Roberts Work Phone: [facility] 02-13-2023 15:02-0400 SaO2% (BldA) [Mass fraction] 100 % Dr. Maggy Roberts Work Phone: [facility] 02-13-2023 15:02-0400 Systolic blood pressure 134 mm[Hg] Dr. Maggy Roberts Work Phone: [facility] 02-12-2023 13:33-0400 Body height 185.[address] Maggy Roberts Work Phone: 4(064)605-611650 [place] [address] 02-12-2023 13:33-0400 Body weight 102.[address] Maggy Roberts Work Phone: 7(368)868-846560 [place] [address] 02-11-2023 20:45-0400 Body mass index (BMI) [Ratio] 30 kg/m2 Dr. Maggy Roberts Work Phone: 3(580)957-260089 [address] 02-11-2023 18:53-0400 Body temperature 99.1 [degF] Dr. Maggy Roberts Work Phone: 6(639)680-237860 [place] [address] 02-11-2023 18:53-0400 Diastolic blood pressure 71 mm[Hg] Dr. Maggy Roberts Work Phone: 0(626)113-944460 [place] [address] 02-11-2023 18:53-0400 Heart rate 88 /min Dr. Maggy Roberts Work Phone: 2(678)626-869060 [place] [address] 02-11-2023 18:53-0400 Respiratory rate 18 /min Dr. Maggy Roberts Work Phone: 0(974)222-045460 [place] [address] 02-11-2023 18:53-0400 SaO2% (BldA) [Mass fraction] 93 % Dr. Maggy Roberts Work Phone: 0(792)842-016489 [address] 02-11-2023 18:53-0400 Systolic blood pressure 129 mm[Hg] Dr. Maggy Roberts Work Phone: 5(454)200-159850 [place] [address] 02-11-2023 16:21-0400 Body height 185.[address] Maggy Roberts Work Phone: 1(445)214-755550 [place] [address] 02-11-2023 00:58-0400 Body temperature 98.4 [degF] Dr. Maggy Roberts Work Phone: 0(165)740-507950 [place] [address] 02-11-2023 00:58-0400 Diastolic blood pressure 62 mm[Hg] Dr. Maggy Roberts Work Phone: 0(534)662-648750 [place] [address] 02-11-2023 00:58-0400 Heart rate 74 /min Dr. Maggy Roberts Work Phone: 4(154)062-873350 [place] [address] 02-11-2023 00:58-0400 Respiratory rate 26 /min Dr. Maggy Roberts Work Phone: 0(882)086-486360 [place] [address] 02-11-2023 00:58-0400 SaO2% (BldA) [Mass fraction] 95 % Dr. Maggy Roberts Work Phone: 0(439)565-057060 [place] [address] 02-11-2023 00:58-0400 Systolic blood pressure 124 mm[Hg] Dr. Maggy Roberts Work Phone: 9(400)564-175860 [place] [address] 02-10-2023 21:23-0400 Body height 185.[address] Maggy Roberts Work Phone: 9(158)373-311760 [place] [address] 02-10-2023 21:23-0400 Body mass index (BMI) [Ratio] 30.9 kg/m2 Dr. Maggy Roberts Work Phone: 7(961)033-947660 [place] [address] 02-10-2023 21:23-0400 Body weight 106.[address] Maggy Roberts Work Phone: 3(855)066-802760 [place] [address] 02-05-2023 15:10-0400 Body temperature 97.4 [degF] Dr. Maggy Roberts Work Phone: 6(629)799-477760 [place] [address] 02-05-2023 15:10-0400 Diastolic blood pressure 77 mm[Hg] Dr. Maggy Roberts Work Phone: 1(140)821-123260 [place] [address] 02-05-2023 15:10-0400 Heart rate 85 /min Dr. Maggy Roberts Work Phone: 9(909)350-757360 [place] [address] 02-05-2023 15:10-0400 Respiratory rate 18 /min Dr. Maggy Roberts Work Phone: 9(331)624-971960 [place] [address] 02-05-2023 15:10-0400 SaO2% (BldA) [Mass fraction] 94 % Dr. Maggy Roberts Work Phone: 1(719)185-714360 [place] [address] 02-05-2023 15:10-0400 Systolic blood pressure 131 mm[Hg] Dr. Maggy Roberts Work Phone: [facility] 02-05-2023 05:36-0400 Body mass index (BMI) [Ratio] 30.6 kg/m2 Dr. Maggy Roberts Work Phone: [facility] 02-05-2023 05:36-0400 Body weight 105.[address] Maggy Roberts Work Phone: 4(388)070-191650 [place] [address] 02-01-2023 00:17-0400 Inhaled oxygen flow rate 2 L/min Dr. Maggy Roberts Work Phone: 5(899)928-942089 [address] 01-27-2023 21:04-0400 Body temperature 98.1 [degF] Dr. Maggy Roberts Work Phone: 3(095)131-791789 [address] 01-27-2023 21:04-0400 Diastolic blood pressure 48 mm[Hg] Dr. Maggy Roberts Work Phone: 2(482)789-907750 [place] [address] 01-27-2023 21:04-0400 Heart rate 79 /min Dr. Maggy Roberts Work Phone: 5(065)092-514250 [place] [address] 01-27-2023 21:04-0400 Respiratory rate 16 /min Dr. Maggy Roberts Work Phone: 0(045)134-626750 [place] [address] 01-27-2023 21:04-0400 SaO2% (BldA) [Mass fraction] 94 % Dr. Maggy Roberts Work Phone: [facility] 01-27-2023 21:04-0400 Systolic blood pressure 111 mm[Hg] Dr. Maggy Roberts Work Phone: [facility] 01-27-2023 17:58-0400 Body height 185.[address] Maggy Roberts Work Phone: [facility] 01-27-2023 17:58-0400 Body mass index (BMI) [Ratio] 30.5 kg/m2 Dr. Maggy Roberts Work Phone: 1(533)803-868250 [place] [address] 01-27-2023 17:58-0400 Body weight [address] Maggy Roberts Work Phone: 3(098)966-442450 [place] [address] 01-26-2023 14:13-0400 Body temperature 98.6 [degF] Dr. Maggy Roberts Work Phone: 2(521)559-408360 [place] [address] 01-26-2023 14:13-0400 Diastolic blood pressure 46 mm[Hg] Dr. Maggy Roberts Work Phone: 1(664)127-525250 [place] [address] 01-26-2023 14:13-0400 Heart rate 60 /min Dr. Maggy Roberts Work Phone: 5(293)482-830760 [place] [address] 01-26-2023 14:13-0400 Respiratory rate 18 /min Dr. Maggy Roberts Work Phone: 6(606)351-844460 [place] [address] 01-26-2023 14:13-0400 SaO2% (BldA) [Mass fraction] 97 % Dr. Maggy Roberts Work Phone: 2(312)163-634450 [place] [address] 01-26-2023 14:13-0400 Systolic blood pressure 134 mm[Hg] Dr. Maggy Roberts Work Phone: 2(561)709-404260 [place] [address] 01-25-2023 05:27-0400 Body mass index (BMI) [Ratio] 28.2 kg/m2 Dr. Maggy Roberts Work Phone: 7(593)583-165350 [place] [address] 01-25-2023 05:27-0400 Body weight 96.[address] Maggy Roberts Work Phone: 3(492)156-411860 [place] [address] 01-24-2023 16:00-0400 Inhaled oxygen flow rate 93 L/min Dr. Maggy Roberts Work Phone: 3(072)105-370760 [place] [address] 01-23-2023 14:42-0400 Body height 185.[address] Maggy Roberts Work Phone: 9(824)814-048150 [place] [address] 01-21-2023 11:32-0400 Body temperature 97.8 [degF] Dr. Maggy Roberts Work Phone: 5(379)363-857950 [place] [address] 01-21-2023 11:32-0400 Diastolic blood pressure 55 mm[Hg] Dr. Maggy Roberts Work Phone: 3(074)532-264660 [place] [address] 01-21-2023 11:32-0400 Heart rate 83 /min Dr. Maggy Roberts Work Phone: 0(989)910-604960 [place] [address] 01-21-2023 11:32-0400 Respiratory rate 23 /min Dr. Maggy Roberts Work Phone: 9(426)209-721260 [place] [address] 01-21-2023 11:32-0400 SaO2% (BldA) [Mass fraction] 93 % Dr. Maggy Roberts Work Phone: 8(329)327-391760 [place] [address] 01-21-2023 11:32-0400 Systolic blood pressure 133 mm[Hg] Dr. Maggy Roberts Work Phone: 9(064)152-863560 [place] [address] 01-21-2023 08:21-0400 Body height 185.[address] Maggy Roberts Work Phone: 2(970)528-295360 [place] [address] 01-21-2023 08:21-0400 Body mass index (BMI) [Ratio] 28.9 kg/m2 Dr. Maggy Roberts Work Phone: 3(844)797-124860 [place] [address] 01-21-2023 08:21-0400 Body weight 99.[address] Maggy Roberts Work Phone: 3(530)377-955260 [place] [address] 01-08-2023 11:58-0400 Body temperature 98.3 [degF] Dr. Maggy Roberts Work Phone: 0(988)191-693160 [place] [address] 01-08-2023 11:58-0400 Diastolic blood pressure 70 mm[Hg] Dr. Maggy Roberts Work Phone: 6(576)437-303260 [place] [address] 01-08-2023 11:58-0400 Heart rate 60 /min Dr. Maggy Roberts Work Phone: 8(557)654-875360 [place] [address] 01-08-2023 11:58-0400 Respiratory rate 14 /min Dr. Maggy Roberts Work Phone: [facility] 01-08-2023 11:58-0400 SaO2% (BldA) [Mass fraction] 96 % Dr. Maggy Roberts Work Phone: [facility] 01-08-2023 11:58-0400 Systolic blood pressure 108 mm[Hg] Dr. Maggy Roberts Work Phone: [facility] 01-08-2023 06:00-0400 Body mass index (BMI) [Ratio] 38.4 kg/m2 Dr. Maggy Roberts Work Phone: [facility] 01-08-2023 06:00-0400 Body weight [address] Maggy Roberts Work Phone: [facility] 01-04-2023 17:25-0400 Diastolic blood pressure 63 mm[Hg] [facility] 01-04-2023 17:25-0400 Heart rate 63 /min [facility] 01-04-2023 17:25-0400 Respiratory rate 12 /min [facility] 01-04-2023 17:25-0400 SaO2% (BldA) [Mass fraction] 98 % [facility] 01-04-2023 17:25-0400 Systolic blood pressure 138 mm[Hg] [facility] 01-04-2023 16:19-0400 Body temperature 96.9 [degF] [facility] 01-04-2023 11:15-0400 Body mass index (BMI) [Ratio] 30.4 kg/m2 [facility] 01-04-2023 11:15-0400 Body weight 104.7 kg [facility] 01-04-2023 10:59-0400 Body height 185.42 cm [facility] 09-07-2022 11:01-0500 Body height 185.4 cm Jojo Kaur MD Work Phone: [facility] 09-07-2022 11:01-0500 Body weight 113.4 kg Jojo Kaur MD Work Phone: [facility] 09-07-2022 11:01-0500 Diastolic blood pressure 57 mm[Hg] Jojo Kaur MD Work Phone: [facility] 09-07-2022 11:01-0500 Heart rate 64 /min Jojo Kaur MD Work Phone: [facility] 09-07-2022 11:01-0500 Respiratory rate 16 /min Jojo Kaur MD Work Phone: [facility] 09-07-2022 11:01-0500 SaO2% (BldA) [Mass fraction] 99 % Jojo Kaur MD Work Phone: [facility] 09-07-2022 11:01-0500 Systolic blood pressure 124 mm[Hg] Jojo Kaur MD Work Phone: [facility] 08-09-2022 16:35-0500 Body weight 113.4 kg Abdulaziz Caldera MD Work Phone: [facility] 08-09-2022 16:35-0500 Diastolic blood pressure 62 mm[Hg] Abdulaziz Caldera MD Work Phone: [facility] 08-09-2022 16:35-0500 Heart rate 64 /min Abdulaziz Caldera MD Work Phone: [facility] 08-09-2022 16:35-0500 Respiratory rate 16 /min Abdulaziz Caldera MD Work Phone: [facility] 08-09-2022 16:35-0500 SaO2% (BldA) [Mass fraction] 96 % Abdulaziz Caldera MD Work Phone: [facility] 08-09-2022 16:35-0500 Systolic blood pressure 112 mm[Hg] Abdulaziz Caldera MD Work Phone: [facility] 07-11-2022 16:22-0500 Body temperature 97.9 [degF] Dr. Luis Caldera Work Phone: [facility] Work Phone: 07-11-2022 16:22-0500 Diastolic blood pressure 65 mm[Hg] Dr. Luis Caldera Work Phone: [facility] Work Phone: 07-11-2022 16:22-0500 Heart rate 75 /min Dr. Luis Caldera Work Phone: [facility] Work Phone: 07-11-2022 16:22-0500 Respiratory rate 17 /min Dr. Luis Caldera Work Phone: [facility] Work Phone: 07-11-2022 16:22-0500 SaO2% (BldA) [Mass fraction] 96 % Dr. Luis Caldear Work Phone: [facility] Work Phone: 07-11-2022 16:22-0500 Systolic blood pressure 114 mm[Hg] Dr. Luis Caldera Work Phone: [facility] Work Phone: 07-11-2022 03:04-0500 Body weight 114.[address] Luis Caldera Work Phone: [facility] Work Phone: 07-10-2022 14:29-0500 Body height 185.[address] Luis Caldera Work Phone: [facility] Work Phone: 07-10-2022 03:04-0500 Body mass index (BMI) [Ratio] 33.6 kg/m2 Dr. Luis Caldera Work Phone: [facility] Work Phone: 07-09-2022 21:17-0500 Inhaled oxygen flow rate 97 L/min Dr. Luis Caldera Work Phone: [facility] Work Phone: 04-17-2022 11:23-0400 Body height 185.4 cm Jojo Kaur MD Work Phone: [place] [address]-04-2022 11:23-0400 Body weight 114.31 kg Jojo Kaur MD Work Phone: [facility] 04-17-2022 11:23-0400 Diastolic blood pressure 71 mm[Hg] Jojo aKur MD Work Phone: [facility] 04-17-2022 11:23-0400 Heart rate 72 /min Jojo Kaur MD Work Phone: [facility] 04-17-2022 11:23-0400 Respiratory rate 18 /min Jojo Kaur MD Work Phone: [facility] 04-17-2022 11:23-0400 SaO2% (BldA) [Mass fraction] 98 % Jojo Kaur MD Work Phone: [facility] 04-17-2022 11:23-0400 Systolic blood pressure 116 mm[Hg] Jojo Kaur MD Work Phone: [facility] 04-16-2022 13:09-0400 Body height 185.4 cm Abdulaziz Caldera MD Work Phone: [facility] 04-16-2022 13:09-0400 Body weight 114.31 kg Abdulaziz Caldera MD Work Phone: [facility] 04-16-2022 13:09-0400 Diastolic blood pressure 72 mm[Hg] Abdulaziz Caldera MD Work Phone: [facility] 04-16-2022 13:09-0400 Heart rate 70 /min Abdulaziz Caldera MD Work Phone: [facility] 04-16-2022 13:09-0400 Respiratory rate 16 /min Abdulaziz Caldera MD Work Phone: [facility] 04-16-2022 13:09-0400 SaO2% (BldA) [Mass fraction] 98 % Abdulaziz Caldera MD Work Phone: [facility] 04-16-2022 13:09-0400 Systolic blood pressure 132 mm[Hg] Abdulaziz Caldera MD Work Phone: [facility] 04-06-2022 09:36-0400 Body weight 114.31 kg Roselia Podlogar CONVEYOR BELT OPERATOR.APPLICATION SUPPORT TECHNICIAN Work Phone: [facility] 04-06-2022 09:36-0400 Diastolic blood pressure 62 mm[Hg] Orselia Podlogar CONVEYOR BELT OPERATOR.APPLICATION SUPPORT TECHNICIAN Work Phone: [facility] 04-06-2022 09:36-0400 Heart rate 62 /min Roselia Podlogar CONVEYOR BELT OPERATOR.APPLICATION SUPPORT TECHNICIAN Work Phone: [facility] 04-06-2022 09:36-0400 Respiratory rate 16 /min Roselia Podlogar CONVEYOR BELT OPERATOR.APPLICATION SUPPORT TECHNICIAN Work Phone: [facility] 04-06-2022 09:36-0400 SaO2% (BldA) [Mass fraction] 97 % Roselia Podlogar CONVEYOR BELT OPERATOR.APPLICATION SUPPORT TECHNICIAN Work Phone: [facility] 04-06-2022 09:36-0400 Systolic blood pressure 112 mm[Hg] Roselia Podlogar CONVEYOR BELT OPERATOR.APPLICATION SUPPORT TECHNICIAN Work Phone: [facility] 03-07-2022 11:12-0400 Body weight 114.76 kg Abdulaziz Caldera MD Work Phone: [facility] 03-07-2022 11:12-0400 Diastolic blood pressure 70 mm[Hg] Abdulaziz Caldera MD Work Phone: [facility] 03-07-2022 11:12-0400 Heart rate 64 /min Abdulaziz Caldera MD Work Phone: [facility] 03-07-2022 11:12-0400 Respiratory rate 16 /min Abdulaziz Caldera MD Work Phone: [facility] 03-07-2022 11:12-0400 Systolic blood pressure 118 mm[Hg] Abdulaziz Caldera MD Work Phone: [facility] 03-05-2022 12:00-0400 Diastolic blood pressure 60 mm[Hg] Rosa Elena Poon PT [facility] 03-05-2022 12:00-0400 Systolic blood pressure 112 mm[Hg] Rosa Elena Poon PT [facility] 03-02-2022 19:48-0400 Diastolic blood pressure 79 mm[Hg] Dr. Luis Caldera Work Phone: [facility] Work Phone: 03-02-2022 19:48-0400 Heart rate 77 /min Dr. Luis Caldera Work Phone: [facility] Work Phone: 03-02-2022 19:48-0400 SaO2% (BldA) [Mass fraction] 97 % Dr. Luis Caldera Work Phone: [facility] Work Phone: 03-02-2022 19:48-0400 Systolic blood pressure 131 mm[Hg] Dr. Luis Caldera Work Phone: [facility] Work Phone: 03-02-2022 18:12-0400 Respiratory rate 17 /min Dr. Luis Caldera Work Phone: [facility] Work Phone: 03-02-2022 14:22-0400 Body height 185.[address] Luis Caldera Work Phone: [facility] Work Phone: 03-02-2022 14:22-0400 Body mass index (BMI) [Ratio] 32.3 kg/m2 Dr. Luis Caldera Work Phone: [facility] Work Phone: 03-02-2022 14:22-0400 Body temperature 98.9 [degF] Dr. Luis Caldera Work Phone: [facility] Work Phone: 03-02-2022 14:22-0400 Body weight 111.[address] Luis Caldera Work Phone: [facility] Work Phone: 01-12-2022 08:00-0400 Diastolic blood pressure 78 mm[Hg] Rosa Elena Lemon PT [facility] 01-12-2022 08:00-0400 Systolic blood pressure 130 mm[Hg] Rosa Elena Lemon PT [facility] 01-05-2022 09:56-0400 Body height 185.4 cm Jojo Kaur MD Work Phone: [facility] 01-05-2022 09:56-0400 Body weight 111.58 kg Jojo Kaur MD Work Phone: [facility] 01-05-2022 09:56-0400 Diastolic blood pressure 62 mm[Hg] Jojo Kaur MD Work Phone: [facility] 01-05-2022 09:56-0400 Heart rate 58 /min Jojo Kaur MD Work Phone: [facility] 01-05-2022 09:56-0400 Respiratory rate 16 /min Jojo Kaur MD Work Phone: [facility] 01-05-2022 09:56-0400 SaO2% (BldA) [Mass fraction] 97 % Jojo Kaur MD Work Phone: [facility] 01-05-2022 09:56-0400 Systolic blood pressure 117 mm[Hg] Jojo Kaur MD Work Phone: [facility] 01-01-2022 10:12-0400 Body temperature 97.39 [degF] Abdulaziz Caldera MD Work Phone: [facility] 01-01-2022 10:12-0400 Body weight 111.77 kg Abdulaziz Caldera MD Work Phone: [facility] 01-01-2022 10:12-0400 Diastolic blood pressure 64 mm[Hg] Abdulaziz Caldera MD Work Phone: [facility] 01-01-2022 10:12-0400 Heart rate 47 /min Abdulaziz Caldera MD Work Phone: [facility] 01-01-2022 10:12-0400 Respiratory rate 18 /min Abdulaziz Caldera MD Work Phone: [facility] 01-01-2022 10:12-0400 SaO2% (BldA) [Mass fraction] 98 % Abdulaziz Caldera MD Work Phone: [facility] 01-01-2022 10:12-0400 Systolic blood pressure 112 mm[Hg] Abdulaziz Caldera MD Work Phone: [facility] 01-01-2022 08:55-0400 Body weight 112.49 kg Justina Monique APRN.APPLICATION SUPPORT TECHNICIAN Work Phone: [facility] 01-01-2022 08:55-0400 Diastolic blood pressure 74 mm[Hg] Justina Monique CONVEYOR BELT OPERATOR.APPLICATION SUPPORT TECHNICIAN Work Phone: [facility] 01-01-2022 08:55-0400 Heart rate 60 /min Justina Monique CONVEYOR BELT OPERATOR.APPLICATION SUPPORT TECHNICIAN Work Phone: [facility] 01-01-2022 08:55-0400 Respiratory rate 18 /min Justina Monique CONVEYOR BELT OPERATOR.APPLICATION SUPPORT TECHNICIAN Work Phone: [facility] 01-01-2022 08:55-0400 Systolic blood pressure 147 mm[Hg] Justina Monique CONVEYOR BELT OPERATOR.APPLICATION SUPPORT TECHNICIAN Work Phone: [facility] 12-29-2021 08:54-0400 Heart rate 69 /min Dr. Luis Caldera Work Phone: [facility] Work Phone: 12-29-2021 08:50-0400 Body temperature 97.7 [degF] Dr. Luis Caldera Work Phone: [facility] Work Phone: 12-29-2021 08:50-0400 Diastolic blood pressure 68 mm[Hg] Dr. Luis Caldera Work Phone: [facility] Work Phone: 12-29-2021 08:50-0400 Respiratory rate 18 /min Dr. Luis Caldera Work Phone: [facility] Work Phone: 12-29-2021 08:50-0400 SaO2% (BldA) [Mass fraction] 96 % Dr. Luis Caldera Work Phone: [facility] Work Phone: 12-29-2021 08:50-0400 Systolic blood pressure 139 mm[Hg] Dr. Luis Caldera Work Phone: [facility] Work Phone: 12-27-2021 22:36-0400 Body height 185.[address] Luis Caldera Work Phone: [facility] Work Phone: 12-27-2021 22:36-0400 Body mass index (BMI) [Ratio] 32.8 kg/m2 Dr. Luis Caldera Work Phone: [facility] Work Phone: 12-27-2021 22:36-0400 Body weight 112.[address] Luis Caldera Work Phone: [facility] Work Phone: 12-27-2021 21:22-0400 Diastolic blood pressure 71 mm[Hg] DR MELANIA WORKMAN MD [facility] 12-27-2021 21:22-0400 Heart rate 73 /min DR MELANIA WORKMAN MD [facility] 12-27-2021 21:22-0400 Respiratory rate 24 /min DR MELANIA WORKMAN MD [facility] 12-27-2021 21:22-0400 Systolic blood pressure 121 mm[Hg] DR MELANIA WORKMAN MD [facility] 12-27-2021 20:06-0400 Diastolic blood pressure 59 mm[Hg] DR MELANIA WORKMAN MD [facility] 12-27-2021 20:06-0400 Heart rate 80 /min DR MELANIA WORKMAN MD [facility] 12-27-2021 20:06-0400 Respiratory rate 26 /min DR MELANIA WORKMAN MD [facility] 12-27-2021 20:06-0400 Systolic blood pressure 112 mm[Hg] DR MELANIA WORKMAN MD [facility] 12-27-2021 19:19-0400 Body temperature 98.6 [degF] DR MELANIA WORKMAN MD [facility] 12-27-2021 19:19-0400 Diastolic blood pressure 76 mm[Hg] DR MELANIA WORKMAN MD [facility] 12-27-2021 19:19-0400 Heart rate 82 /min DR MELANIA WORKMAN MD [facility] 12-27-2021 19:19-0400 Respiratory rate 26 /min DR MELANIA WORKMAN MD [facility] 12-27-2021 19:19-0400 Systolic blood pressure 138 mm[Hg] DR MELANIA WORKMAN MD [facility] 12-27-2021 17:36-0400 Body temperature 102.56 [degF] DR MELANIA WORKMAN MD [facility] 12-27-2021 17:36-0400 Body weight [address] MELANIA WORKMAN MD [facility] 12-27-2021 17:36-0400 Heart rate 104 /min DR MELANIA WORKMAN MD [facility] 12-14-2021 15:10-0400 Body temperature 98.2 [degF] Abdulaziz Caldera MD Work Phone: [facility] 12-14-2021 15:10-0400 Body weight 110.77 kg Abdulaziz Caldera MD Work Phone: [facility] 12-14-2021 15:10-0400 Diastolic blood pressure 70 mm[Hg] Abdulaziz Caldera MD Work Phone: [facility] 12-14-2021 15:10-0400 Heart rate 54 /min Abdulaziz Caldera MD Work Phone: [facility] 12-14-2021 15:10-0400 Respiratory rate 16 /min Abdulaziz Caldera MD Work Phone: [facility] 12-14-2021 15:10-0400 SaO2% (BldA) [Mass fraction] 96 % Abdulaziz Caldera MD Work Phone: [facility] 12-14-2021 15:10-0400 Systolic blood pressure 130 mm[Hg] Abdulaziz Caldera MD Work Phone: [facility] 12-08-2021 16:23-0400 Diastolic blood pressure 64 mm[Hg] Abdulaziz Caldera MD Work Phone: [facility] 12-08-2021 16:23-0400 Heart rate 85 /min Abdulaziz Caldera MD Work Phone: [facility] 12-08-2021 16:23-0400 Systolic blood pressure 110 mm[Hg] Abdulaziz Caldera MD Work Phone: [facility] 12-07-2021 00:58-0400 SaO2% (BldA) [Mass fraction] 97 % [facility] Work Phone: 12-06-2021 22:59-0400 Body height 185.42 cm [facility] Work Phone: 12-06-2021 22:59-0400 Body mass index (BMI) [Ratio] 33.6 kg/m2 [facility] Work Phone: 12-06-2021 22:59-0400 Body temperature 97.7 [degF] [facility] Work Phone: 12-06-2021 22:59-0400 Body weight 115.66 kg [facility] Work Phone: 12-06-2021 22:59-0400 Diastolic blood pressure 78 mm[Hg] [facility] Work Phone: 12-06-2021 22:59-0400 Heart rate 90 /min [facility] Work Phone: 12-06-2021 22:59-0400 Respiratory rate 16 /min [facility] Work Phone: 12-06-2021 22:59-0400 Systolic blood pressure 149 mm[Hg] [facility] Work Phone: 10-23-2021 13:05-0400 Body temperature 97.3 [degF] Marcella Xavier PA-C Work Phone: [facility] 10-23-2021 13:05-0400 Body weight 114.58 kg Marcella Vanlue PA-C Work Phone: [facility] 10-23-2021 13:05-0400 Diastolic blood pressure 56 mm[Hg] Marcella Xavier PA-C Work Phone: [facility] 10-23-2021 13:05-0400 Heart rate 85 /min Marcella Vanlue PA-C Work Phone: [facility] 10-23-2021 13:05-0400 SaO2% (BldA) [Mass fraction] 98 % Marcella Xavier PA-C Work Phone: [facility] 10-23-2021 13:05-0400 Systolic blood pressure 132 mm[Hg] Marcellamichael Nicholsf PA-C Work Phone: [facility] 10-10-2021 10:07-0400 Diastolic blood pressure 68 mm[Hg] Richard Jones MD Work Phone: [facility] 10-10-2021 10:07-0400 Heart rate 69 /min Richard Jones MD Work Phone: [facility] 10-10-2021 10:07-0400 Respiratory rate 16 /min Richard Jones MD Work Phone: [facility] 10-10-2021 10:07-0400 SaO2% (BldA) [Mass fraction] 98 % Richard Jones MD Work Phone: [facility] 10-10-2021 10:07-0400 Systolic blood pressure 150 mm[Hg] Rihcard Jones MD Work Phone: [facility] 10-10-2021 08:01-0400 Body temperature 97 [degF] Richard Jones MD Work Phone: [facility] Encounters Encounter Date Encounter Type Care Provider Facility Start: 12-22-2024 ambulatory Walter Rosita [facility] Facili ty:[facility] Start: 12-16-2024 ambulatory Walter Rosita MAYORGA Facili ty:[facility] Start: 11-24-2024 ambulatory Luis Chavez lity:[facility] Start: 10-12-2024 End: 10-12-[address] Olga Lidia Rasheed MD -[facility] Work Phone: Start: 10-12-2024 End: 10-12-2024 ambulatory Olga Lidia Rasheed [facility] Start: 10-05-2024 End: 10-05-[address] Luis Caldera MD Work Phone: [facility] Work Phone: Start: 10-05-2024 End: 10-05-2024 Departed Referred Walter Becker [facility] Start: 10-05-2024 Registered Referred Walter Becker MD -[facility] Start: 10-05-2024 End: 10-05-2024 ambulatory Luis Caldera Facility:[facility] Start: 09-29-2024 End: 09-29-[address] Luis Caldera MD Work Phone: [facility] Work Phone: Start: 09-29-2024 End: 09-29-2024 Departed Referred Walter Becker MD -[facility] Start: 09-29-2024 End: 09-29-2024 ambulatory Walter MAYORGA Facility:[facility] Start: 08-04-2024 End: 08-04-2024 Departed Referred Walter Becker MD -[facility] Start: 08-04-2024 End: 08-04-2024 ambulatory Walter MAYORGA Facility:[facility] Start: 07-27-2024 End: 07-27-2024 Departed Referred Walter Becker MD -[facility] Start: 07-27-2024 End: 07-27-2024 ambulatory Walter MAYORGA Facility:[facility] Start: 07-07-2024 End: 07-07-2024 Departed Referred Walter Becker [facility] Start: 07-07-2024 End: 07-07-2024 [facility] Start: 07-01-2024 ambulatory Walter MAYORGA Facili ty:[facility] Start: 07-01-2024 Registered Referred Walter Becker MD [facility] Start: 06-01-2024 End: 06-01-2024 ambulatory Luis Caldera Facility:[facility] Start: 04-14-2024 End: 04-14-2024 ambulatory Luis Bursley Facility:[facility] Start: 04-10-2024 End: 04-10-2024 ambulatory Luis Bursley Facility:[facility] Start: 04-09-2024 End: 04-09-2024 ambulatory Walter Stoneo OLS Facility:[facility] Start: 04-07-2024 End: 04-08-2024 ambulatory Walter Depfabienneo OLS Facility:[facility] Start: 03-02-2024 ambulatory Walter Deperro OLS Facili ty:[facility] Start: 02-24-2024 ambulatory Walter Deperro OLS Facili ty:[facility] Start: 02-19-2024 End: 02-19-2024 ambulatory Walter Stoneo OLS Facility:[facility] Start: 02-17-2024 End: 02-17-2024 ambulatory Luis Peaceley Facility:[facility] Start: 02-12-2024 End: 02-12-2024 ambulatory Luis Peaceley Facility:[facility] Start: 02-11-2024 End: 02-11-2024 ambulatory Luis Peaceley Facility:[facility] Start: 02-10-2024 End: 02-10-2024 ambulatory Luis Bursley Facility:[facility] Start: 02-03-2024 End: 02-03-2024 ambulatory Walter Stoneo OLS Facility:[facility] Start: 01-27-2024 End: 01-27-2024 ambulatory Walter Depfabienneo OLS Facility:[facility] Start: 01-20-2024 ambulatory Walter Deperro OLS Facili ty:[facility] Start: 01-15-2024 ambulatory Walter Depfabienneo OLS Facili ty:[facility] Start: 01-14-2024 ambulatory Walter Deperro OLS Facili ty:[facility] Start: 01-13-2024 ambulatory Walter Deperro OLS Facili ty:[facility] Start: 10-25-[address] Adam Caldera Work Phone: [facility] Start: 10-16-2023 End: 10-16-[address] Luis Caldera Work Phone: [facility] Work Phone: Start: 10-16-2023 End: 10-16-[address] Luis Caldera Work Phone: [facility] Start: 10-16-[address] Adam Caldera Work Phone: [facility] Start: 10-08-2023 End: 10-08-[address] Luis Caldera Work Phone: [facility] Work Phone: Start: 10-08-2023 End: 10-08-[address] Luis Caldera Work Phone: [facility] Start: 10-08-[address] Adam Caldera Work Phone: [facility] Start: 10-07-2023 End: 10-07-[address] Luis Caldera Work Phone: [facility] Work Phone: Start: 10-04-2023 End: 10-04-[address] Luis Caldera Work Phone: [facility] Work Phone: Start: 10-04-2023 End: 10-04-[address] Luis Caldera Work Phone: [facility] Start: 10-01-2023 End: 10-01-[address] Luis Caldera Work Phone: [facility] Work Phone: Start: 10-01-2023 End: 10-01-[address] Luis Caldera Work Phone: [facility] Start: 10-01-2023 Registered Referred [facility] Start: 09-25-2023 End: 09-25-2023 ambulatory [facility] Work Phone: Start: 09-25-2023 End: 09-25-2023 Departed Referred [facility] Start: 09-18-2023 End: 09-18-2023 ambulatory [facility] Work Phone: Start: 09-18-2023 End: 09-18-2023 Departed Referred [facility] Start: 09-18-2023 Registered Referred [facility] Start: 09-13-2023 End: 09-13-2023 ambulatory [facility] Work Phone: Start: 09-13-2023 End: 09-13-2023 Departed Referred [facility] Start: 09-13-2023 Registered Referred [facility] Start: 09-12-2023 End: 09-12-2023 ambulatory [facility] Work Phone: Start: 09-12-2023 End: 09-12-2023 Departed Referred [facility] Start: 09-12-2023 Registered Referred [facility] Start: 09-09-2023 End: 09-09-2023 ambulatory [facility] Work Phone: Start: 09-09-2023 End: 09-09-2023 Departed Referred [facility] Start: 09-09-2023 Registered Referred [facility] Start: 08-26-2023 End: 08-26-2023 ambulatory [facility] Work Phone: Start: 08-26-2023 End: 08-26-2023 Departed Referred [facility] Start: 08-26-2023 Registered Referred [facility] Start: 08-19-2023 End: 08-19-2023 ambulatory [facility] Work Phone: Start: 08-19-2023 End: 08-19-2023 Departed Referred [facility] Start: 08-19-2023 Registered Referred [facility] Start: 08-12-2023 End: 08-12-2023 ambulatory [facility] Work Phone: Start: 08-12-2023 End: 08-12-2023 Departed Referred [facility] Start: 08-12-2023 Registered Referred [facility] Start: 08-05-2023 End: 08-05-2023 ambulatory [facility] Work Phone: Start: 08-05-2023 End: 08-05-2023 Departed Referred [facility] Start: 08-05-2023 Registered Referred [facility] Start: 07-29-2023 End: 07-29-2023 ambulatory [facility] Work Phone: Start: 07-29-2023 End: 07-29-2023 Departed Referred [facility] Start: 07-22-2023 End: 07-22-2023 ambulatory [facility] Work Phone: Start: 07-22-2023 End: 07-22-2023 Departed Referred [facility] Start: 07-22-[address] Adam Caldera Work Phone: [facility] Start: 07-19-2023 End: 07-19-2023 ambulatory [facility] Work Phone: Start: 07-19-2023 End: 07-19-2023 Departed Referred [facility] Start: 07-19-[address] Adam Caldera Work Phone: [facility] Start: 07-17-2023 End: 07-17-2023 ambulatory [facility] Work Phone: Start: 07-17-2023 End: 07-17-2023 Departed Referred [facility] Start: 07-17-[address] Adam Caldera Work Phone: [facility] Start: 07-10-2023 End: 07-10-[address] Luis Caldera Work Phone: [facility] Work Phone: Start: 07-10-2023 End: 07-10-[address] Luis Caldera Work Phone: [facility] Start: 07-03-2023 End: 07-03-[address] Luis Caldera Work Phone: [facility] Work Phone: Start: 07-03-2023 End: 07-03-[address] Luis Caldera Work Phone: [facility] Start: 07-03-[address] Adam Caldera Work Phone: [facility] Start: 06-26-2023 End: 06-26-[address] Luis Caldera Work Phone: [facility] Work Phone: Start: 06-26-2023 End: 06-26-[address] Luis Caldera Work Phone: [facility] Start: 06-26-[address] Adam Caldera Work Phone: [facility] Start: 06-25-2023 End: 06-25-[address] Luis Caldera Work Phone: [facility] Work Phone: Start: 06-25-2023 End: 06-25-[address] Luis Caldera Work Phone: [facility] Start: 06-25-[address] Adam Caldera Work Phone: [facility] Start: 06-24-2023 End: 06-24-[address] Luis Caldera Work Phone: [facility] Work Phone: Start: 06-24-2023 End: 06-24-[address] Luis Caldera Work Phone: [facility] Start: 06-24-[address] Adam Caldera Work Phone: [facility] Start: 06-17-2023 End: 06-17-[address] Luis Caldera Work Phone: [facility] Work Phone: Start: 06-17-2023 End: 06-17-[address] Luis Caldera Work Phone: [facility] Start: 06-10-2023 End: 06-10-[address] Luis Caldera Work Phone: [facility] Work Phone: Start: 06-10-2023 End: 06-10-[address] Luis Caldera Work Phone: [facility] Start: 06-10-[address] Adam Caldera Work Phone: [facility] Start: 06-03-2023 End: 06-03-2023 Admission to same day surgery center Dr. Luis Caldera Work Phone: [facility] Start: 06-03-2023 End: 06-03-[address] Luis Caldera Work Phone: [facility] Work Phone: Start: 06-03-2023 End: 06-03-2023 Dr. Luis Caldera Work Phone: [facility] Start: 05-20-2023 End: 05-20-[address] Luis Caldera Work Phone: [facility] Work Phone: Start: 05-20-2023 End: 05-20-[address] Luis Caldera Work Phone: [facility] Start: 05-20-2023 End: 05-20-2023 Dr. Luis Caldera Work Phone: [facility] Start: 05-15-2023 End: 05-15-[address] Luis Caldera Work Phone: [facility] Work Phone: Start: 05-15-2023 End: 05-15-[address] Luis Caldera Work Phone: [facility] Start: 05-15-2023 End: 05-15-2023 Dr. Luis Caldera Work Phone: [facility] Start: 05-06-2023 End: 05-06-[address] Luis Caldera Work Phone: [facility] Work Phone: Start: 05-06-2023 End: 05-06-[address] Luis Caldera Work Phone: [facility] Start: 05-06-2023 End: 05-06-2023 Dr. Luis Caldera Work Phone: [facility] Start: 04-29-2023 End: 04-29-[address] Maggy Roberts Work Phone: [facility] Work Phone: Start: 04-29-2023 End: 04-29-[address] Luis Caldera Work Phone: [facility] Start: 04-29-2023 End: 04-29-2023 Dr. Maggy Roberts Work Phone: [facility] Start: 04-15-2023 End: 04-15-[address] Luis Caldera Work Phone: [facility] Start: 04-15-2023 End: 04-15-2023 Dr. Maggy Roberts Work Phone: [facility] Start: 04-09-2023 End: 04-09-[address] Maggy Roberts Work Phone: [facility] Work Phone: Start: 04-09-2023 End: 04-09-[address] Luis Caldera Work Phone: [facility] Start: 04-09-2023 End: 04-09-2023 Dr. Maggy Roberts Work Phone: [facility] Start: 04-08-2023 End: 04-08-[address] Luis Caldera Work Phone: [facility] Start: 04-08-2023 End: 04-08-2023 Dr. Maggy Roberts Work Phone: [facility] Start: 04-01-2023 End: 04-01-[address] Maggy Roberts Work Phone: [facility] Work Phone: Start: 04-01-2023 End: 04-01-[address] Luis Caldera Work Phone: [facility] Start: 04-01-2023 End: 04-01-2023 Dr. Maggy Roberts Work Phone: [facility] Start: 03-27-2023 End: 03-27-[address] Luis Caldera Work Phone: [facility] Work Phone: Start: 03-27-2023 End: 03-27-2023 Dr. Maggy Roberts Work Phone: [facility] Work Phone: Start: 03-25-2023 End: 03-25-[address] Maggy Roberts Work Phone: [facility] Work Phone: Start: 03-25-2023 End: 03-25-[address] Luis Caldera Work Phone: [facility] Start: 03-25-2023 End: 03-25-2023 Dr. Maggy Roberts Work Phone: [facility] Start: 03-11-2023 End: 03-11-[address] Maggy Roberts Work Phone: [facility] Work Phone: Start: 03-11-2023 End: 03-11-[address] Luis Caldera Work Phone: [facility] Start: 03-11-2023 End: 03-11-2023 Dr. Maggy Roberts Work Phone: [facility] Start: 03-04-[address] Adam Caldera Work Phone: [facility] Start: 03-04-2023 Dr. Maggy benavides Work Phone: [facility] Start: 03-01-[address] Adam Caldera Work Phone: [facility] Start: 03-01-2023 Dr. Maggy benavides Work Phone: [facility] Start: 02-25-[address] Adam Caldera Work Phone: [facility] Start: 02-25-2023 Dr. Maggy Bonilla line Work Phone: [facility] Start: 02-22-[address] Adam Caldera Work Phone: [facility] Start: 02-22-2023 Dr. Maggy Bonilla line Work Phone: [facility] Start: 02-20-2023 Dr. Maggy Bonilla line Work Phone: [facility] Start: 02-18-2023 End: 02-18-2023 Dr. Maggy Roberts Work Phone: [facility] Work Phone: Start: 02-14-2023 Dr. Maggy Bonilla line Work Phone: [facility] Start: 02-13-2023 Dr. Maggy Bonilla line Work Phone: [facility] Work Phone: Start: 02-12-2023 Dr. Maggy Bonilla line Work Phone: [facility] Work Phone: Start: 02-12-2023 Dr. Maggy Bonilla line Work Phone: [facility] Start: 02-11-2023 End: 02-13-2023 Evaluation and management of inpatient Dr. Maggy Roberts Work Phone: [facility] Work Phone: Start: 02-11-2023 End: 02-13-2023 Dr. Maggy Roberts Work Phone: [facility] 3 Work Phone: Start: 02-10-2023 End: 02-11-2023 Emergency department patient visit Dr. Maggy Roberts Work Phone: [facility] Work Phone: Start: 02-10-2023 End: 02-11-2023 Dr. Maggy Roberts Work Phone: [facility] Work Phone: Start: 02-07-2023 Dr. Maggy Bonilla line Work Phone: [facility] Start: 02-05-2023 Dr. Maggy Bonilla line Work Phone: [facility] Work Phone: Start: 02-05-2023 End: 02-05-2023 Dr. Maggy Roberts Work Phone: [facility] Work Phone: Start: 02-04-2023 Dr. Maggy Bonilla line Work Phone: [facility] Work Phone: Start: 02-03-2023 End: 02-05-2023 Dr. Maggy Roberts Work Phone: [facility] Work Phone: Start: 02-02-2023 Dr. Maggy Bonilla line Work Phone: [facility] Work Phone: Start: 02-01-2023 Dr. Maggy Bonilla line Work Phone: [facility] Start: 02-01-2023 Dr. Maggy Bonilla line Work Phone: [facility] Work Phone: Start: 01-31-2023 Dr. Maggy Bonilla line Work Phone: [facility] Start: 01-31-2023 Dr. Maggy Bonilla line Work Phone: [facility] Work Phone: Start: 01-30-2023 Dr. Maggy Bonilla line Work Phone: [facility] Start: 01-30-2023 Dr. Maggy Bonilla line Work Phone: [facility] Start: 01-29-2023 Dr. Maggy Bonilla line Work Phone: [facility] Work Phone: Start: 01-29-2023 Dr. Maggy Bonilla line Work Phone: [facility] Start: 01-28-2023 Telephone encounter Luis Caldera MD Work Phone: [facility] Comment on above: Immunizations Start: 01-28-2023 Dr. Maggy Bonilla line Work Phone: [facility] Work Phone: Start: 01-28-2023 End: 01-28-2023 Dr. Maggy Roberts Work Phone: [facility] Work Phone: Start: 01-27-2023 Evaluation and management of inpatient [facility] Start: 01-27-2023 End: 02-05-2023 Dr. [facility]: Start: 01-26-2023 Non-patient / Non-visit Dr. Eddie Roberts Work Phone: [facility] Start: 01-26-2023 Dr. Maggy Bonilla line Work Phone: [facility] Start: 01-26-2023 Non-patient / Non-visit Dr. Eddie Roberts Work Phone: [facility] Work Phone: Start: 01-26-2023 Dr. Maggy Bonilla line Work Phone: [facility] Work Phone: Start: 01-25-2023 Non-patient / Non-visit Dr. Eddie Roberts Work Phone: [facility] Start: 01-25-2023 Dr. Maggy Bonilla line Work Phone: [facility] Start: 01-25-2023 Non-patient / Non-visit Dr. Eddie Roberts Work Phone: [facility] Work Phone: Start: 01-25-2023 Dr. Maggy Bonilla line Work Phone: [facility] Work Phone: Start: 01-24-2023 Non-patient / Non-visit [facility]. Eddie Roberts Work Phone: [facility] [facility] Start: 01-24-2023 Dr. Maggy Bonlila line Work Phone: [facility] Start: 01-24-2023 Telephone encounter Luis Caldera MD Work Phone: [facility] Comment on above: Patient Update Start: 01-24-2023 Non-patient / Non-visit Dr. Eddie Roberts Work Phone: [facility] Start: 01-24-2023 Dr. Maggy benavides Work Phone: [facility] Start: 01-24-2023 Non-patient / Non-visit Dr. Eddie Roberts Work Phone: [facility] Work Phone: Start: 01-24-2023 End: 01-24-2023 Dr. Maggy Roberts Work Phone: [facility] Work Phone: Start: 01-23-2023 Non-patient / Non-visit Dr. Eddie Roberts Work Phone: [facility] Start: 01-23-2023 Dr. Maggy Bonilal line Work Phone: [facility] Start: 01-23-2023 Non-patient / Non-visit Dr. Eddie Roberts Work Phone: [facility] Start: 01-23-2023 Dr. Maggy Bonilla line Work Phone: [facility] Start: 01-22-2023 Non-patient / Non-visit Dr. Eddie Roberts Work Phone: [facility] Start: 01-22-2023 Dr. Maggy Bonilla line Work Phone: [facility] Start: 01-22-2023 Non-patient / Non-visit Dr. Eddie Roberts Work Phone: [facility] Start: 01-22-2023 Dr. Maggy Bonilla line Work Phone: [facility] Start: 01-22-2023 Non-patient / Non-visit Dr. Eddie Roberts Work Phone: [facility] Work Phone: Start: 01-22-2023 Dr. Maggy Bonilla line Work Phone: [facility] Work Phone: Start: 01-21-2023 End: 01-21-2023 Dr. Maggy Roberts Work Phone: [facility] Work Phone: Start: 01-21-2023 Non-patient / Non-visit Dr. Eddie Roberts Work Phone: [facility] Start: 01-21-2023 Dr. Maggy Bonilla line Work Phone: [facility] Start: 01-21-2023 Non-patient / Non-visit Dr. Eddie Roberts Work Phone: [facility] Work Phone: Start: 01-21-2023 Dr. Maggy Bonilla line Work Phone: [facility] Work Phone: Start: 01-21-2023 End: 01-26-2023 Evaluation and management of inpatient [facility] Start: 01-21-2023 End: 01-26-2023 Dr. Mag[facility]: Start: 01-08-2023 Non-patient / Non-visit Dr. Eddie Roberts Work Phone: [facility] Work Phone: Start: 01-08-2023 Dr. Maggy Bonilla line Work Phone: [facility] Work Phone: Start: 01-07-2023 Non-patient / Non-visit Dr. Eddie Roberts Work Phone: [facility] Work Phone: Start: 01-07-2023 Dr. Maggy Bonilla line Work Phone: [facility] Work Phone: Start: 01-06-2023 Non-patient / Non-visit Dr. Eddie Roberts Work Phone: [facility] Work Phone: Start: 01-06-2023 Dr. Maggy Bonilla line Work Phone: [facility] Work Phone: Start: 01-05-2023 End: 01-08-2023 Evaluation and management of inpatient Dr. Maggy Roberts [facility] Work [facility]: Start: 01-05-2023 End: 01-08-2023 Dr. Maggy [facility]: Start: 01-05-2023 Non-patient / Non-visit Dr. Eddie Roberts Work Phone: [facility] Work Phone: Start: 01-05-2023 Dr. Maggy benavides Work Phone: [facility] Work Phone: Start: 01-04-2023 Evaluation and management of inpatient [facility] Start: 01-04-2023 Non-patient / Non-visit Dr. Eddie Roberts Work Phone: [facility] Work Phone: Start: 01-04-2023 observation encounter [facility] Work Phone: Start: 01-04-2023 Dr. Maggy benavides Work Phone: [facility] Work Phone: Start: 01-04-2023 Telephone encounter Luis Caldera MD Work Phone: [facility] Comment on above: Appointment Start: 01-03-2023 Telephone encounter Luis Caldera MD Work Phone: [facility] Comment on above: Appointment; Patient Update Start: 01-03-2023 End: 01-03-2023 ambulatory Justina Escoto PT [facility] Comment on above: Spinal stenosis, lum bar region, without neurogenic claudication (Primary Dx); Primary osteoarthritis of both knees Start: 12-31-2022 End: 12-31-2022 ambulatory Ira Ramos IT SOFTWARE ENGINEER Work Phone: [facility] Comment on above: Spinal stenosis, lum bar region, without neurogenic claudication (Primary Dx); Primary osteoarthritis of both knees Start: 12-27-2022 End: 12-27-2022 ambulatory Ira Ramos IT SOFTWARE ENGINEER Work Phone: [facility] Comment on above: Spinal stenosis, lum bar region, without neurogenic claudication (Primary Dx); Primary osteoarthritis of both knees Start: 12-24-2022 End: 12-24-2022 ambulatory Justina O'Rafa PT [facility] Comment on above: Spinal stenosis, lum bar region, without neurogenic claudication (Primary Dx); Primary osteoarthritis of both knees Start: 12-17-2022 End: 12-17-2022 ambulatory Justina O'Rafa PT [facility] Comment on above: Spinal stenosis, lum bar region, without neurogenic claudication (Primary Dx); Primary osteoarthritis of both knees Start: 12-14-2022 End: 12-14-2022 ambulatory Justina O'Rafa PT [facility] Comment on above: Spinal stenosis, lum bar region, without neurogenic claudication (Primary Dx); Primary osteoarthritis of both knees Start: 12-12-2022 End: 12-12-2022 ambulatory Justina O'Rafa PT [facility] Comment on above: Spinal stenosis, lum bar region, without neurogenic claudication (Primary Dx); Primary osteoarthritis of both knees Start: 11-20-2022 Refill Abdulaziz Caldera MD Work Phone: [facility] Comment on above: Refill Request Start: 11-19-2022 Telephone encounter Valencia Pascual MA [facility] Comment on above: Anticoagulation Start: 10-22-2022 End: 10-22-2022 Patient encounter procedure Zachary Obregon Work Phone: Podiatry Comment on above: Onychomycosis (Prima ry Dx); Pain in toe of left foot; Amputated toe of right foot (HCC); Diabetic polyneuropathy associated with type 2 diabetes mellitus (HCC) Start: 09-25-2022 Telephone encounter Luis Caldera MD Work Phone: [facility] Comment on above: Anticoagulation Start: 09-07-2022 Telephone encounter Jojo galan MD Work Phone: Neurology Comment on above: Appointment Start: 09-07-2022 End: 09-07-2022 Office outpatient visit 25 minutes Jojo Kaur MD Work Phone: Neurology Comment on above: Driving safety issue (Primary Dx) Start: 08-28-2022 Telephone encounter Luis Caldera MD Work Phone: [facility] Comment on above: Anticoagulation Start: 08-16-2022 Refill Abdulaziz Caldera MD Work Phone: [facility] [place] Comment on above: Refill Request Start: 08-14-2022 Telephone encounter Luis Caldera MD Work Phone: [facility] Comment on above: Anticoagulation Start: 08-09-2022 End: 08-09-2022 Patient encounter procedure Abdulaziz Caldera MD Work Phone: [facility] Comment on above: Type 2 diabetes [...] Luis Caldera MD Work Phone: [facility] Comment on above: checking on medicati on Start: 08-06-2022 End: 08-06-2022 Patient encounter procedure Zachary Jaimes MD Work Phone: Otolaryngology Comment on above: Dizziness (Primary D x); Chronic frontal sinusitis Start: 07-31-2022 Telephone encounter Luis Caldera MD Work Phone: [facility] [place] Comment on above: Anticoagulation Start: 07-26-2022 Telephone encounter Luis Caldera MD Work Phone: [facility] Comment on above: Home Health-Nursing Update Start: 07-25-2022 Refill Abdulaziz Caldera MD Work Phone: [facility] Comment on above: Refill Request Start: 07-17-2022 Telephone encounter Luis Caldera MD Work Phone: [facility] Comment on above: [facility] PT POC OT plan of care Start: 07-13-2022 Telephone encounter Luis Caldera MD Work Phone: [facility] Comment on above: Nursing Plan of C are Update Start: 07-12-2022 Telephone encounter Luis Caldera MD Work Phone: [facility] Comment on above: Orders Start: 07-11-2022 Non-patient / Non-visit Dr. Praveen Caldera Work Phone: [facility] Start: 07-11-2022 Non-patient / Non-visit Dr. Praveen Caldera Work Phone: [facility] Start: 07-10-2022 Non-patient / Non-visit Dr. Praveen Caldera Work Phone: [facility] Start: 07-10-2022 Non-patient / Non-visit Dr. Praveen Caldera Work Phone: [facility] Start: 07-09-2022 End: 07-11-2022 Evaluation and management of inpatient Dr. Luis Caldera Work Phone: [facility] Start: 07-09-2022 Refill Amanda VELASCO [facility] Comment on above: Opened In Error Refill Request Start: 07-05-2022 E-mail encounter fro m caregiver Jojo Kaur MD Work Phone: [facility] Start: 07-05-2022 Patient encounter procedure Jojo Kaur MD Work Phone: Neurology Comment on above: Appointment Needs Re scheduled: 08/21/[address] Kaur Start: 06-25-2022 Refill Abdulaziz Caldera MD Work Phone: [facility] [place] Comment on above: Refill Request Start: 05-16-2022 Refill Abdulaziz Caldera MD Work Phone: [facility] [place] Comment on above: Refill Request Start: 04-17-2022 Telephone encounter Justina fry WIRE COILER Work Phone: Adult Psychology Comment on above: behavioral health so cial work Start: 04-17-2022 End: 04-17-2022 Patient encounter procedure Jojo Kaur MD Work Phone: Neurology Comment on above: Generalized anxiety disorder (Primary Dx); Polyneuropathy Start: 04-16-2022 End: 04-16-2022 Patient encounter procedure Abdulaziz Caldera MD Work Phone: [facility] [place] Comment on above: Type 2 diabetes almaz [...] Roselia Madrigal APRN.CNP Work Phone: [facility] [place] Comment on above: Generalized weakness (Primary Dx); Encounter for immunization; Mild depression Start: 04-04-2022 Telephone encounter Luis Caldera MD Work Phone: [facility] [place] Comment on above: Anticoagulation Start: 03-30-2022 End: 03-30-2022 Patient encounter procedure Zachary Obregon Work Phone: Podiatry Comment on above: Onychomycosis (Prima ry Dx); Pain in toe of left foot; Amputated toe of right foot (HCC); Diabetic polyneuropathy associated with type 2 diabetes mellitus (HCC) Start: 03-23-2022 End: 03-23-2022 ambulatory Rosa Elena Lemon PT [facility] Comment on above: Abnormality of gait due to impairment of balance (Primary Dx) Start: 03-22-2022 Refill Abdulaziz Caldera MD Work Phone: [facility] Comment on above: Refill Request Start: 03-15-2022 End: 03-15-2022 ambulatory Karen Gus IT SOFTWARE ENGINEER Work Phone: [facility] Comment on above: Abnormality of gait due to impairment of balance (Primary Dx) Start: 03-12-2022 End: 03-12-2022 ambulatory Karen Gus IT SOFTWARE ENGINEER Work Phone: [facility] Comment on above: Abnormality of gait due to impairment of balance (Primary Dx) Start: 03-09-2022 End: 03-09-2022 ambulatory Rosa Elena Lemon PT [facility] Comment on above: Abnormality of gait due to impairment of balance (Primary Dx) Start: 03-07-2022 Telephone encounter Luis Caldera MD Work Phone: [facility] Comment on above: Anticoagulation Start: 03-07-2022 End: 03-07-[address] Luis Caldera Work Phone: [facility] Work Phone: Start: 03-07-2022 End: 03-07-[address] Luis Caldera Work Phone: [facility]Laboratory, Specimen Start: 03-07-2022 End: 03-07-2022 Patient encounter procedure Abdulaziz Caldera MD Work Phone: [facility] Comment on above: Generalized weakness (Primary Dx); Supratherapeutic INR; ANTHONY (acute kidney injury) (HCC) Start: 03-05-2022 End: 03-05-2022 ambulatory Rosa Elena Lemon PT [facility] Comment on above: Abnormality of gait due to impairment of balance (Primary Dx) Start: 03-02-2022 End: 03-02-2022 Emergency department patient visit Dr. Luis Caldera Work Phone: [facility] Start: 03-02-2022 End: 03-02-2022 ambulatory Rosa Elena Lemon PT [facility] Comment on above: Abnormality of gait due to impairment of balance (Primary Dx) Start: 02-26-2022 End: 02-26-2022 ambulatory Rosa Elena Lemon PT [facility] Comment on above: Abnormality of gait due to impairment of balance (Primary Dx) Start: 02-23-2022 End: 02-23-2022 ambulatory Karen Weber IT SOFTWARE ENGINEER Work Phone: [facility] Comment on above: Abnormality of gait due to impairment of balance (Primary Dx) Start: 02-14-2022 End: 02-14-2022 ambulatory Rosa Elena Lemon PT [facility] Comment on above: Abnormality of gait due to impairment of balance (Primary Dx) Start: 02-09-2022 End: 02-09-2022 ambulatory Rosa Elena Lemon PT [facility] Comment on above: Abnormality of gait due to impairment of balance (Primary Dx) Start: 02-06-2022 Refill Abdulaziz Caldera MD Work Phone: [facility] Comment on above: Prescription Refills Start: 02-02-2022 End: 02-02-2022 ambulatory Karen Weber IT SOFTWARE ENGINEER Work Phone: [facility] Comment on above: Abnormality of gait due to impairment of balance (Primary Dx) Start: 01-31-2022 Refill Abdulaziz Caldera MD Work Phone: [facility] Comment on above: Refill Request Start: 01-30-2022 End: 01-30-2022 ambulatory Karen Weber IT SOFTWARE ENGINEER Work Phone: [facility] Comment on above: Abnormality of gait due to impairment of balance (Primary Dx) Start: 01-23-2022 End: 01-23-2022 ambulatory Karen Weber IT SOFTWARE ENGINEER Work Phone: [facility] Comment on above: Abnormality of gait due to impairment of balance (Primary Dx) Refill Request; Refi ll Request Start: 01-17-2022 Telephone encounter Luis Caldera MD Work Phone: [facility] Comment on above: Question Start: 01-12-2022 End: 01-12-2022 ambulatory Rosa Elena Poon PT [facility] Comment on above: Abnormality of gait due to impairment of balance (Primary Dx) Start: 01-11-2022 Telephone encounter Roselia miguel APRN.APPLICATION SUPPORT TECHNICIAN Work Phone: [facility] Comment on above: Patient Question; Me dication Question; Referral Request Start: 01-10-2022 Telephone encounter Justina Monique APRN.APPLICATION SUPPORT TECHNICIAN Work Phone: Cardiology Comment on above: [...] type Start: 01-02-2022 Telephone encounter Justina Monique APRN.APPLICATION SUPPORT TECHNICIAN Work Phone: [facility] Comment on above: Results Start: 01-01-2022 End: 01-01-2022 Patient encounter procedure Justina Monique APRN.APPLICATION SUPPORT TECHNICIAN Work Phone: Cardiology Comment on above: Hyperlipidemia with target LDL less than 100 (Primary Dx); Primary hypertension; Thoracic aortic aneurysm without rupture (HCC); 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 Praveen Caldera Work Phone: [facility] Start: 12-28-2021 Non-patient / Non-visit Dr. Praveen Caldera Work Phone: [facility] Start: 12-28-2021 End: 12-29-2021 Evaluation and management of inpatient Dr. Luis Caldera Work Phone: [facility] Start: 12-27-2021 Non-patient / Non-visit Dr. Praveen Caldera Work Phone: [facility] Start: 12-27-2021 End: 12-27-2021 Emergency department patient visit DR. MELANIA WORKMAN MD. Facility:[facility] Start: 12-27-2021 End: 12-27-2021 Emergency department patient visit DR MELANIA WORKMAN MD [facility] Start: 12-14-2021 End: 12-14-2021 Patient encounter procedure Abdulaziz Caldera MD Work Phone: [facility] Comment on above: COVID-19 (Primary Dx ) Start: 12-08-2021 End: 12-08-2021 ambulatory Abdulaziz Caldera MD Work Phone: [facility] Comment on above: COVID-19 (Primary Dx ) Start: 12-08-2021 End: 12-08-2021 Telemedicine consultation with patient Abdulaziz Caldera MD Work Phone: [facility] Start: 12-08-2021 Telephone encounter Luis Caldera MD Work Phone: [facility] Comment on above: Patient Question Start: 12-06-2021 End: 12-07-2021 Emergency department patient visit [facility] Start: 11-20-2021 Refill Abdulaziz Caldera [...] Abdulaziz Caldera MD Work Phone: [facility] [place] Comment on above: Refill Request (SEE RX [...] QUADRIVALENT HIGH DOSE AGE 65+ Roselia Podlogar CONVEYOR BELT OPERATOR.APPLICATION SUPPORT TECHNICIAN Work Phone: Start: 04-06-2022 [employer] COVID-19 BIVALENT BOOSTER VACCINE, AGE 12+ YR Roselia Podlogar CONVEYOR BELT OPERATOR.APPLICATION SUPPORT TECHNICIAN Work Phone: Start: 04-06-2022 Adult depression screening assessment Roselia Podlogar CONVEYOR BELT OPERATOR.APPLICATION SUPPORT TECHNICIAN Work Phone: Start: 03-07-2022 PROTHROMBIN TIME/PT Abdulaziz Caldera MD Work Phone: Start: 03-07-2022 Adult depression screening assessment Abdulaziz Caldera MD Work Phone: Start: 03-02-2022 CT of head without contrast Dr. Camron Caldera Work Phone: Start: 03-02-2022 Plain chest X-ray Dr. Luis Caldera Work Phone: Start: 01-09-2022 Echo tthrc r-t 2d w/wom-mode compl spec&colr d Justina Monique CONVEYOR BELT OPERATOR.APPLICATION SUPPORT TECHNICIAN Work Phone: Start: 01-01-2022 Urnls dip [...] Activity Detail Author Start: 10-11-2031 Colonoscopy COLONOSCOPY [facility] Start: 10-11-2031 COLORECTAL CANCER SCREENING COLORECTAL CANCER SCREENING [facility] Start: 10-10-2024 Colonoscopy COLONOSCOPY [facility] Start: 10-10-2024 COLORECTAL CANCER SCREENING COLORECTAL CANCER SCREENING [facility] Start: 01-05-2024 ANNUAL PCP TEAM ICE CARVER MARLENE DISEASE VISIT ANNUAL PCP TEAM CHRONIC DISEASE VISIT [facility] Start: 01-05-2024 BP CONTROLLED (<130/80) BP CONTROLLE D (<130/80) [facility] Start: 12-04-2023 BP CONTROLLED (<130/80) BP CONTROLLE D (<130/80) [facility] Start: 11-20-2023 ANNUAL PCP TEAM ICE CARVER MARLENE DISEASE VISIT ANNUAL PCP TEAM CHRONIC DISEASE VISIT [facility] Start: 11-20-2023 BP CONTROLLED (<130/80) BP CONTROLLE D (<130/80) [facility] Start: 09-07-2023 BP CONTROLLED (<130/80) BP CONTROLLE D (<130/80) [facility] Start: 08-13-2023 HEMOGLOBIN/HEMATOCRIT HEMOGLOBIN/HEM ATOCRIT [facility] Start: 08-13-2023 SERUM CREATININE SERUM CREATININE Cl [facility] Start: 08-09-2023 ANNUAL PCP TEAM ICE CARVER MARLENE DISEASE VISIT ANNUAL PCP TEAM CHRONIC DISEASE VISIT [facility] Start: 08-09-2023 BP CONTROLLED (<130/80) BP CONTROLLE D (<130/80) [facility] Start: 07-12-2023 ANNUAL PCP TEAM ICE CARVER MARLENE DISEASE VISIT ANNUAL PCP TEAM CHRONIC DISEASE VISIT [facility] Start: 07-12-2023 BP CONTROLLED (<130/80) BP CONTROLLE D (<130/80) [facility] Start: 06-03-2023 Anes dx/ther nerve block/injection prone pos ANESTH N BLOCK/INJ PRONE [facility] Start: 06-03-2023 Njx dx/ther sbst int rlmnr lmbr/sac w/img gdn NJX INTERLAMINAR LMBR/SAC [facility] Start: 06-03-2023 Injection using fluoroscopic guidance [facility] Start: 06-03-2023 Patient discharge [facility] Start: 04-17-2023 BP CONTROLLED (<130/80) BP CONTROLLE D (<130/80) [facility] Start: 04-16-2023 ANNUAL PCP TEAM ICE CARVER MARLENE DISEASE VISIT ANNUAL PCP TEAM CHRONIC DISEASE VISIT [facility] Start: 04-06-2023 Adult depression scr eening assessment DEPRESSION SCREENING [facility] Start: 04-06-2023 ANNUAL PCP TEAM ICE CARVER MARLENE DISEASE VISIT ANNUAL PCP TEAM CHRONIC DISEASE VISIT [facility] Start: 04-06-2023 BP CONTROLLED (<130/80) BP CONTROLLE D (<130/80) [facility] Start: 03-30-2023 3 comp foot exam completed DIABETIC FOOT EXAM [facility] Start: 03-15-2023 Influenza vaccination INFLUENZA (#1) [facility] Start: 03-07-2023 Adult depression scr eening assessment DEPRESSION SCREENING [facility] Start: 03-07-2023 ANNUAL PCP TEAM ICE CARVER MARLENE DISEASE VISIT ANNUAL PCP TEAM CHRONIC DISEASE VISIT [facility] Start: 03-07-2023 BP CONTROLLED (<130/80) BP CONTROLLE D (<130/80) [facility] Start: 03-07-2023 SERUM CREATININE SERUM CREATININE [facility] Start: 03-05-2023 BP CONTROLLED (<130/80) BP CONTROLLE D (<130/80) [facility] Start: 03-02-2023 Hepatitis B screening URINE ALBUMIN:CREATININE RATIO [facility] Start: 02-13-2023 Patient discharge [facility] Start: 02-12-2023 Care regimes management [facility] Start: 02-12-2023 Notification of physician [facility] Start: 02-12-2023 [facility] Start: 02-12-2023 Blood culture [facility] Start: 02-12-2023 End: 02-12-2023 [facility] Start: 02-11-2023 End: 02-11-2023 Blood culture [facility] Start: 02-11-2023 Assessment of risk o f venous thromboembolism [facility] Start: 02-11-2023 Consultation [facility] Start: 02-11-2023 Insertion of cathete r into peripheral vein [facility] Start: 02-11-2023 Providing care accor ding to standard [facility] Start: 02-11-2023 Provision of activit y privileges [facility] Start: 02-11-2023 Referral to occupati onal therapist [facility] Start: 02-11-2023 Referral to service [facility] Start: 02-11-2023 [facility] Start: 02-11-2023 Admission procedure [facility] Start: 02-11-2023 [facility] Start: 02-11-2023 Patient referral to dietitian [facility] Start: 02-10-2023 End: 02-10-2023 [facility] Start: 02-10-2023 End: 02-10-2023 Blood culture [facility] Start: 02-10-2023 Hemoglobin A1c/Hemoglobin.total in Blood HBA1C [facility] Start: 02-05-2023 Patient discharge [facility] Start: 02-04-2023 Assessment of risk o f venous thromboembolism [facility] Start: 02-04-2023 Bedrest [facility] Start: 02-04-2023 Elevation of head of bed [facility] Start: 02-04-2023 Taking patient vital signs [facility] Start: 02-04-2023 Wound care [facility] Start: 02-04-2023 [facility] Start: 02-04-2023 Catheterization of vein [facility] Start: 02-04-2023 Notification of physician [facility] Start: 02-04-2023 [facility] Start: 02-01-2023 Catheterization of vein [facility] Start: 02-01-2023 Notification of physician [facility] Start: 02-01-2023 [facility] Start: 02-01-2023 [facility] Start: 01-30-2023 Referral to employment legal assistant [facility] Start: 01-30-2023 End: 01-30-2023 Administration of blood product [facility] Start: 01-29-2023 Speech therapy assessment [facility] Start: 01-29-2023 [facility] Start: 01-28-2023 End: 01-29-2023 [facility] Start: 01-27-2023 Application of intermittent pneumatic compression device [facility] Start: 01-27-2023 Following clinical p athway protocol [facility] Start: 01-27-2023 Methicillin resistan t Staphylococcus aureus screening test [facility] Start: 01-27-2023 Aspiration precautions [facility] Start: 01-27-2023 Assessment of risk o f venous thromboembolism [facility] Start: 01-27-2023 Care regimes management [facility] Start: 01-27-2023 Fall prevention [facility] Start: 01-27-2023 Insertion of cathete r into peripheral vein [facility] Start: 01-27-2023 Introduction of urin barrington catheter [facility] Start: 01-27-2023 Measuring intake and output [facility] Start: 01-27-2023 Providing care accor ding to standard [facility] Start: 01-27-2023 Provision of activit y privileges [facility] Start: 01-27-2023 Referral to gastroenterology service [facility] Start: 01-27-2023 Referral to occupati onal therapist [facility] Start: 01-27-2023 Referral to service [facility] Start: 01-27-2023 [facility] Start: 01-27-2023 Admission procedure [facility] Start: 01-27-2023 CT Chest and Abdomen and Pelvis WO and W contrast IV [facility] Start: 01-27-2023 CT of thorax, abdome n and pelvis with contrast CTA Chst, Abd, Pel W and/or WO [facility] Start: 01-27-2023 Blood chemistry [facility] Start: 01-27-2023 End: 01-28-2023 [facility] Start: 01-27-2023 Patient referral to dietitian [facility] Start: 01-26-2023 Patient discharge [facility] Start: 01-24-2023 Speech therapy assessment [facility] Start: 01-24-2023 Speech therapy assessment [facility] Start: 01-22-2023 Referral to employment legal assistant [facility] Start: 01-21-2023 Administration of bl ood product [facility] Start: 01-21-2023 Catheterization of vein [facility] Start: 01-21-2023 Application of intermittent pneumatic compression device [facility] Start: 01-21-2023 Following clinical p athway protocol [facility] Start: 01-21-2023 Care regimes management [facility] Start: 01-21-2023 Notification of physician [facility] Start: 01-21-2023 Cardiac monitoring [facility] Start: 01-21-2023 Referral to gastroenterology service [facility] Start: 01-21-2023 End: 01-21-2023 [facility] Start: 01-21-2023 Oxygen therapy [facility] Start: 01-21-2023 Ambulation without limitation [facility] Start: 01-21-2023 Documentation procedure [facility] Start: 01-21-2023 Assessment of risk o f venous thromboembolism [facility] Start: 01-21-2023 Continuous pulse oximetry [facility] Start: 01-21-2023 Insertion of cathete r into peripheral vein [facility] Start: 01-21-2023 Measuring intake and output [facility] Start: 01-21-2023 Providing care accor ding to standard [facility] Start: 01-21-2023 Referral to occupati onal therapist [facility] Start: 01-21-2023 Referral to service [facility] Start: 01-21-2023 Verification routine [facility] Start: 01-21-2023 Vital signs measurements [facility] Start: 01-21-2023 Admission procedure [facility] Start: 01-21-2023 Transfusion of red b lood cells [facility] Start: 01-08-2023 Patient discharge [facility] Start: 01-05-2023 BP CONTROLLED (<130/80) BP CONTROLLE D (<130/80) [facility] Start: 01-05-2023 Admission procedure [facility] Start: 01-05-2023 Telepractice consultation [facility] Start: 01-04-2023 Application of intermittent pneumatic compression device [facility] Start: 01-04-2023 Following clinical p athway protocol [facility] Start: 01-04-2023 Aspiration precautions [facility] Start: 01-04-2023 Assessment of risk o f venous thromboembolism [facility] Start: 01-04-2023 Cardiac monitoring [facility] Start: 01-04-2023 Care regimes management [facility] Start: 01-04-2023 Catheterization of vein [facility] Start: 01-04-2023 Elevation of head of bed [facility] Start: 01-04-2023 Exercises [facility] Start: 01-04-2023 Fall prevention [facility] Start: 01-04-2023 Inhalation therapy procedure [facility] Start: 01-04-2023 Insertion of cathete r into peripheral vein [facility] Start: 01-04-2023 Introduction of urin barrington catheter [facility] Start: 01-04-2023 Measuring intake and output [facility] Start: 01-04-2023 Notification of physician [facility] Start: 01-04-2023 Providing care accor ding to standard [facility] Start: 01-04-2023 Provision of activit y privileges [facility] Start: 01-04-2023 Referral to occupati onal therapist [facility] Start: 01-04-2023 Referral to service [facility] Start: 01-04-2023 Tobacco use cessatio n education [facility] Start: 01-04-2023 Verification routine [facility] Start: 01-04-2023 Admission procedure [facility] Start: 01-04-2023 End: 01-04-2023 [facility] Start: 01-04-2023 End: 01-04-2023 Blood culture [facility] Start: 01-04-2023 Patient referral to dietitian [facility] Start: 01-01-2023 ANNUAL PCP TEAM ICE CARVER MARLENE DISEASE VISIT ANNUAL PCP TEAM CHRONIC DISEASE VISIT [facility] Start: 01-01-2023 BP CONTROLLED (<130/80) BP CONTROLLE D (<130/80) [facility] Start: 01-01-2023 Hepatitis B surface antibody level LDL CHOLESTEROL [facility] Start: 01-01-2023 SERUM CREATININE SERUM CREATININE Cl [facility] Start: 12-14-2022 ANNUAL PCP TEAM ICE CARVER MARLENE DISEASE VISIT ANNUAL PCP TEAM CHRONIC DISEASE VISIT [facility] Start: 12-08-2022 ANNUAL PCP TEAM ICE CARVER MARLENE DISEASE VISIT ANNUAL PCP TEAM CHRONIC DISEASE VISIT [facility] Start: 12-08-2022 BP CONTROLLED (<130/80) BP CONTROLLE D (<130/80) [facility] Start: 09-06-2022 ANNUAL PCP TEAM ICE CARVER MARLENE DISEASE VISIT ANNUAL PCP TEAM CHRONIC DISEASE VISIT [facility] Start: 09-02-2022 Hemoglobin A1c/Hemoglobin.total in Blood HBA1C [facility] Start: 08-30-2022 SERUM CREATININE SERUM CREATININE Cl [facility] Start: 08-09-2022 End: 10-09-2022 CBC W Auto Differential panel - Blood CBC + DIFF Lab Routine Type 2 diabetes mellitus with diabetic neuropathy, with long-term current use of insulin (HCC) Expected: 08/09/2022, Expires: 10/09/2022 [facility] Work Phone: Comment on above: Expected: 08/09/2022 , Expires: 10/09/2022 Start: 08-09-2022 End: 10-09-2022 Comprehensive metabolic 2000 panel - Serum or Plasma COMP METABOLIC PANEL Lab Routine Type 2 diabetes mellitus with diabetic neuropathy, with long-term current use of insulin (HCC) Expected: 08/09/2022, Expires: 10/09/2022 [facility] Work Phone: Comment on above: Expected: 08/09/2022 , Expires: 10/09/2022 Start: 08-09-2022 End: 10-09-2022 Hemoglobin A1c in Blood HGB A1C Lab Routine Type 2 diabetes mellitus with diabetic neuropathy, with long-term current use of insulin (HCC) Expected: 08/09/2022, Expires: 10/09/2022 [facility] Work Phone: Comment on above: Expected: 08/09/2022 , Expires: 10/09/2022 Start: 08-06-2022 COVID-19 VACCINE (6 - Pfizer series) COVID-19 VACCINE (6 - Pfizer series) [facility] Start: 07-15-2022 ADVANCE DIRECTIVE DISCUSSION ADVANCE DIRECTIVE DISCUSSION [facility] Start: 07-15-2022 DEPRESSION ASSESSMENT DEPRESSION ASS ESSMENT [facility] Start: 07-11-2022 Patient [facility] Work Phone: Start: 07-11-2022 Referral to service [facility] Work Phone: Start: 07-10-2022 [facility] Work Phone: Start: 07-10-2022 Following clinical p athway protocol [facility] Work Phone: Start: 07-10-2022 Assessment of risk o f venous thromboembolism [facility] Work Phone: Start: 07-10-2022 Cardiac monitoring [facility] Work Phone: Start: 07-10-2022 Care regimes management [facility] Work Phone: Start: 07-10-2022 Catheterization of vein [facility] Work Phone: Start: 07-10-2022 Continuous pulse oximetry [facility] Work Phone: Start: 07-10-2022 Elevation of head of bed [facility] Work Phone: Start: 07-10-2022 Exercises [facility] Work Phone: Start: 07-10-2022 Fall prevention [facility] Work Phone: Start: 07-10-[address] anned interventions [facility] Work Phone: Start: 07-10-2022 Incentive spirometry [facility] Work Phone: Start: 07-10-2022 Insertion of cathete r into peripheral vein [facility] Work Phone: Start: 07-10-2022 Introduction of urin barrington catheter [facility] Work Phone: Start: 07-10-2022 Measuring intake and output [facility] Work Phone: Start: 07-10-2022 Notification of physician [facility] Work Phone: Start: 07-10-2022 Oxygen therapy [facility] Work Phone: Start: 07-10-2022 Providing care accor ding to standard [facility] Work Phone: Start: 07-10-2022 Provision of activit y privileges [facility] Work Phone: Start: 07-10-2022 Referral to employment legal assistant [facility] Work Phone: Start: 07-10-2022 Referral to occupati onal therapist [facility] Work Phone: Start: 07-10-2022 Referral to service [facility] Work Phone: Start: 07-10-2022 Tobacco use cessatio n education [facility] Work Phone: Start: 07-10-2022 [facility] Work Phone: Start: 07-10-2022 Patient referral to dietitian [facility] Work Phone: Start: 07-09-2022 Admission procedure [facility] Work Phone: Start: 03-15-2022 HEMOGLOBIN/HEMATOCRIT HEMOGLOBIN/HEM ATOCRIT [facility] Start: 03-15-2022 Influenza vaccination INFLUENZA (#1) [facility] Start: 03-07-2022 End: 05-07-2022 Comprehensive metabolic 2000 panel - Serum or Plasma [facility] Work Phone: Comment on above: Expected: 03/07/2022 , Expires: 05/07/2022 Start: 03-02-2022 [facility] Work Phone: Start: 02-27-2022 Hemoglobin A1c/Hemoglobin.total in Blood HBA1C [facility] Start: 02-20-2022 Hepatitis C antibody , confirmatory test DILATED RETINAL EXAM [facility] Start: 01-30-2022 End: 04-01-2022 ALBUMIN/CREAT RATIO RND UR ALBUMIN/CREAT RATIO RND UR Lab Routine Type 2 diabetes mellitus with stage 3 chronic kidney disease, with long-term current use of insulin (HCC) Expected: 01/30/2022, Expires: 04/01/2022 [facility] Work Phone: Comment on above: Expected: 01/30/2022 , Expires: 04/01/2022 Start: 01-30-2022 End: 04-01-2022 Hemoglobin A1c in Blood HGB A1C Lab Routine Type 2 diabetes mellitus with stage 3 chronic kidney disease, with long-term current use of insulin (HCC) Expected: 01/30/2022, Expires: 04/01/2022 [facility] Work Phone: Comment on above: Expected: 01/30/2022 , Expires: 04/01/2022 Start: 01-30-2022 End: 04-01-2022 SCHEDULE LAB TESTING SCHEDULE LAB TESTING Lab Routine Expected: 01/30/2022, Expires: 04/01/2022 [facility] Work Phone: Comment on above: Expected: 01/30/2022 , Expires: 04/01/2022 Start: 01-05-2022 End: 03-07-2022 Magnesium [Mass/volume] in Serum or Plasma MAGNESIUM BLD Lab Routine Altered mental status, unspecified altered mental status type Expected: 01/05/2022, Expires: 03/07/2022 [facility] Work Phone: Comment on above: Expected: 01/05/2022 , Expires: 03/07/2022 Start: 01-05-2022 End: 03-07-2022 Methylmalonate [Moles/volume] in Serum or Plasma METHYLMALONIC ACID Lab Routine Altered mental status, unspecified altered mental status type Expected: 01/05/2022, Expires: 03/07/2022 [facility] Work Phone: Comment on above: Expected: 01/05/2022 , Expires: 03/07/2022 Start: 01-01-2022 End: 03-03-2022 25-hydroxyvitamin D3 [Mass/volume] in Serum or Plasma [facility] Work Phone: Comment on above: Expected: 01/01/2022 , Expires: 03/03/2022 Start: 01-01-2022 End: 03-03-2022 Lipid 1996 panel - Serum or Plasma [facility] Work Phone: Comment on above: Expected: 01/01/2022 , Expires: 03/03/2022 Start: 12-30-2021 Blood chemistry [facility] Work Phone: Start: 12-29-2021 Patient discharge [facility] Work Phone: Start: 12-28-2021 Admission procedure [facility] Work Phone: Start: 12-27-2021 End: 12-28-2021 [facility] Work Phone: Start: 12-27-2021 Oxygen therapy [facility] Work Phone: Start: 12-27-2021 Incentive spirometry [facility] Work Phone: Start: 12-27-2021 Admission procedure [facility] Work Phone: Start: 12-27-2021 Assessment of risk o f venous thromboembolism [facility] Work Phone: Start: 12-27-2021 Following clinical p athway protocol [facility] Work Phone: Start: 12-27-2021 Insertion of cathete r into peripheral vein [facility] Work Phone: Start: 12-27-2021 Measuring intake and output [facility] Work Phone: Start: 12-27-2021 Providing care accor ding to standard [facility] Work Phone: Start: 12-27-2021 End: 12-27-2021 Referral to service [facility] Work Phone: Start: 12-06-2021 Bacteria identified in Blood by Culture Blood Culture [facility] Work Phone: Start: 11-23-2021 3 comp foot exam completed DIABETIC FOOT EXAM [facility] Start: 11-16-2021 Hepatitis B screening URINE ALBUMIN:CREATININE RATIO [facility] Start: 11-16-2021 Hepatitis B surface antibody level LDL CHOLESTEROL [facility] Start: 10-28-2021 Adult depression scr eening assessment DEPRESSION SCREENING [facility] Start: 09-15-2021 COVID-19 VACCINE (4 - Booster for Pfizer series) COVID-19 VACCINE (4 - Booster for Pfizer series) [facility] Start: 07-15-2021 ADVANCE DIRECTIVE DISCUSSION ADVANCE DIRECTIVE DISCUSSION [facility] Start: 07-15-2021 DEPRESSION ASSESSMENT DEPRESSION ASS ESSMENT [facility] Start: 03-12-2021 Colonoscopy COLONOSCOPY [facility] Start: 03-12-2021 COLORECTAL CANCER SCREENING COLORECTAL CANCER SCREENING [facility] Start: 12-25-2020 Urine microalbumin profile DTA P,TDAP,TD (3 - Td or Tdap) [facility] Start: 10-12-1992 COLOGUARD (FIT-DNA) COLOGUARD (FIT-D NA) [facility] Start: 10-12-[address] [facility] Start: 10-12-1992 FECAL OCCULT BLOOD FECAL OCCULT BLOO D [facility] Start: 10-12-1992 SIGMOIDOSCOPY SIGMOIDOSCOPY [facility] Start: [birth year]-1965 BP CONTROLLED (<130/80) BP CONTROLLE D (<130/80) [facility] Alanine aminotransfe rase [Enzymatic activity/volume] in Serum or Plasma [facility] Aspartate aminotrans ferase [Enzymatic activity/volume] in Serum or Plasma [facility] Bacteria identified in Blood by Culture Blood Culture [facility] Bacteria identified in Urine by Culture Urine Culture [facility] Creatine kinase [Enz ymatic activity/volume] in Serum or Plasma [facility] End: 01-05-2023 EPIL EEG ROUTINE EPIL EEG ROUTINE NEUROLOGY Routine Altered mental status, unspecified altered mental status type 1 Occurrences starting 01/05/2022 until 01/05/2023 [facility] Work Phone: Comment on above: 1 Occurrences starti ng 01/05/2022 until 01/05/2023 Lipid 1996 panel - S chavez or Plasma [facility] Magnesium [Mass/volu me] in Serum or Plasma [facility] Magnesium [Mass/volu me] in Serum or Plasma [facility] Patient Education [facility] Work Phone: Patient referral [facility] Work Phone: PT PLAN OF CARE CERTIFICATION PT PLAN OF CARE CERTIFICATION Procedures Routine Abnormality of gait due to impairment of balance Ordered: 01/12/2022 [facility] Comment on above: Ordered: 01/12/2022 PT PLAN OF CARE CERTIFICATION PT PLAN OF CARE CERTIFICATION Procedures Routine Abnormality of gait due to impairment of balance Ordered: 03/09/2022 [facility] Comment on above: Ordered: 03/09/2022 SURGICAL PATHOLOGY [facility] Work Phone: Comment on above: Release Upon Orderin g for 1 Occurrences starting 10/10/2021, 1 completed [facility] Immunizations Immunization Date Immunization Notes Care Provider [facility] 04-06-2022 COVID-19 booster vaccine, age 12+ yr, bivalent (PFIZER-BIONTECH) Roselia Raglandlogdavid CONVEYOR BELT OPERATOR.APPLICATION SUPPORT TECHNICIAN Work Phone: [facility] 04-06-2022 Influenza, high dose seasonal Dr. Luis Caldera MD Work Phone: [facility] 04-06-2022 influenza, high dose seasonal, preservative-free Dr. Maggy Roberts Work Phone: [facility] 04-06-2022 influenza, high-dose , quadrivalent vaccine (FLUZONE HIGH DOSE QUADRIVALENT) Roselia Madrigal CONVEYOR BELT OPERATOR.APPLICATION SUPPORT TECHNICIAN Work Phone: [facility] 03-28-2022 influenza, injectabl e, quadrivalent, preservative free Dr. Maggy Roberts Work Phone: [facility] 03-28-2022 influenza, seasonal, injectable Dr. Maggy Roberts Work Phone: [facility] 06-14-2021 Influenza, high dose seasonal Dr. Luis Caldera MD Work Phone: [facility] 06-14-2021 influenza, high dose seasonal, preservative-free Dr. Maggy Roberts Work Phone: [facility] 06-14-2021 influenza, high-dose , quadrivalent vaccine (FLUZONE HIGH DOSE QUADRIVALENT) Abdulaziz Caldera MD Work Phone: [facility] Work Phone: 05-18-2021 Covid (Pfizer) Dr. Maggy Roberts Work Phone: [facility] 02-24-2021 zoster vaccine recombinant Abdulaziz Caldera MD Work Phone: [facility] 12-13-2020 Covid (Pfizer) Dr. Ramón Caldera Work Phone: [facility] 09-30-2020 COVID-19 vaccine, ag e 12+ yr (PFIZER-BIONTECH - PURPLE TOP) Abdulaziz Caldera MD Work Phone: [facility] 09-09-2020 COVID-19 vaccine, ag e 12+ yr (PFIZER-BIONTECH - PURPLE TOP) Abdulaziz Caldera MD Work Phone: [facility] 04-16-2020 Influenza, high dose seasonal Dr. Luis Caldera MD Work Phone: [facility] 04-16-2020 influenza, high dose seasonal, preservative-free Dr. Maggy Roberts Work Phone: [facility] 04-16-2020 influenza, high-dose , quadrivalent vaccine (FLUZONE HIGH DOSE QUADRIVALENT) Abdulaziz Caldera MD Work Phone: [facility] 03-14-2020 zoster vaccine recombinant Abdulaziz Caldera MD Work Phone: [facility] Work Phone: 04-02-2019 Influenza, high dose seasonal Dr. Luis Caldera MD Work Phone: [facility] 04-02-2019 influenza, high dose seasonal, preservative-free Abdulaziz Caldera MD Work Phone: [facility] Work Phone: 05-08-2018 Influenza virus vaccine [facility] 04-15-2018 Influenza, high dose seasonal Dr. Luis Caldera MD Work Phone: [facility] 04-15-2018 influenza, high dose seasonal, preservative-free Abdulaziz Caldera MD Work Phone: [facility] 06-13-2017 Influenza, high dose seasonal Dr. Luis Caldera MD Work Phone: [facility] 06-13-2017 influenza, high dose seasonal, preservative-free Abdulaziz Caldera MD Work Phone: [facility] 06-20-2016 influenza, high dose seasonal, preservative-free Abdulaziz Caldera MD Work Phone: [facility] 11-24-2015 pneumococcal polysaccharide vaccine, 23 valent Abdulaziz Caldera MD Work Phone: [facility] 05-16-2015 Influenza, high dose seasonal Dr. Luis Caldera MD Work Phone: [facility] 05-16-2015 influenza, high dose seasonal, preservative-free Abdulaziz Caldera MD Work Phone: [facility] 10-27-2014 pneumococcal conjuga te vaccine, 13 valent Abdulaziz Caldera MD Work Phone: [facility] 10-27-2014 zoster vaccine, live Socrates Caldera MD Work Phone: [facility] 04-14-2013 Influenza virus vaccine [facility] 06-11-2011 influenza virus vaccine, unspecified formulation Abdulaziz Caldera MD Work Phone: [facility] 12-25-2010 tetanus toxoid, redu veronika diphtheria toxoid, and acellular pertussis vaccine, adsorbed Abdulaziz Caldera MD Work Phone: [facility] 04-25-2009 pneumococcal polysaccharide vaccine, 23 valent Abdulaziz Caldera MD Work Phone: [facility] [facility] 03[facility]2000 diphtheria and tetan us toxoids, adsorbed for pediatric use Abdulaziz Caldera MD Work Phone: [facility] Work Phone: 02-11-1961 poliovirus vaccine, inactivated Christopher Bursley MD Work Phone: [facility] Work Phone: 03-25-1959 poliovirus vaccine, inactivated Abdulaziz Caldera MD Work Phone: [facility] Work Phone: 10-16-1956 poliovirus vaccine, inactivated Abdulaziz Caldera MD Work Phone: [facility] Work Phone: 01-12-1956 poliovirus vaccine, inactivated Abdulaziz Caldera MD Work Phone: [facility] Work Phone: 12-03-1955 poliovirus vaccine, inactivated Abdulaziz Caldera MD Work Phone: [facility] Work Phone: Payers Date Payer Category Payer Self-pay [id number] 2021 Medicare [id number] 2021 Unknown [id number] 2012 Unknown HOSPITAL/MEDICAL GENERIC MEDICAL GENERIC [id number] 2012-Present [phone] [address] [place] [address] Indemnity [id number] 2012 Unknown HOSPITAL/MEDICAL GENERIC MEDICAL GENERIC [id number] 2012-Present [phone] [place] [address] Indemnity [id number] 2012 Medicare MEDICARE MEDICAR E A AND B [id number] 2012-Present [phone] [place] [address] Medicare [id number] [id number] 2012 Medicare MEDICARE MEDICAR E A AND B [id number] 2012-Present [phone] [address] [address] [place] [address] Medicare [id number] [id number] 1945 Unknown [id number] 2.16.840.1.916597.3.579.2.627 Unknown [id number] 2.16.840.1.492497.3.579.2.462 Unknown [id number] 2.16.840.1.537609.3.579.2.462 Unknown [id number] 2.16.840.1.881811.3.579.2.462 Unknown [id number] 2.16.840.1.052960.3.579.2.462 Unknown [id number] 2.16.840.1.436597.3.579.2.462 Unknown [id number] 2.16.840.1.518714.3.579.2.462 Unknown [id number] 2.16.840.1.385689.3.579.2.462 Unknown [id number] 2.16.840.1.511412.3.579.2.462 Unknown [id number] 2.16.840.1.427323.3.579.2.462 Unknown [id number] 2.16.840.1.495253.3.579.2.462 Unknown [id number] 2.16.840.1.260527.3.579.2.462 Unknown [id number] 2.16.840.1.593370.3.579.2.462 Unknown [id number] 2.16.840.1.381603.3.579.2.462 Unknown [id number] 2.16.840.1.194236.3.579.2.462 Unknown [id number] 2.16840.1.755915.3.579.2.462 Unknown [id number] 2.16840.1.190879.3.579.2.462 Unknown [id number] 2.16840.1.364303.3.579.2.462 Unknown [id number] 2.16840.1.965023.3.579.2.462 Unknown [id number] 2.16840.1.168179.3.579.2.462 Unknown [id number] 2.840.1.599362.3.579.2.462 Unknown [id number] 2.840.1.242888.3.579.2.462 Unknown [id number] 2.840.1.872700.3.579.2.462 Unknown [id number] 2.840.1.373131.3.579.2.462 Unknown [id number] 2.840.1.652745.3.579.2.462 Unknown [id number] 2.840.1.545472.3.579.2.462 Unknown [id number] 2.840.1.031072.3.579.2.462 Unknown [id number] 2.840.1.873909.3.579.2.462 Unknown [id number] 2.840.1.527456.3.579.2.462 Unknown [id number] 2.840.1.286601.3.579.2.462 Social History Date Type Detail Facility Start: 11-23-2020 End: 10-07-2023 Tobacco smoking status FLIS Never smoked tobacco [facility] Start: 09-06-2021 End: 12-03-2022 Alcohol intake Current non-drinker of alcohol (finding) [facility] Start: 1945 Sex Assigned At Not on file [facility] Start: 08-07-2021 End: 04-17-2022 Exposure to SARS-CoV-2 (event) Not sure [facility] Start: 12-06-2021 End: 05-30-2023 Tobacco smoking status NHIS Unknown if ever smoked [facility] Start: 01-10-2019 Spouse/ Signif icant Other [facility] Start: 1945 Sex Assigned At Male [facility] Work Phone: Tobacco smoking status No Smokin g Status Entered [facility] Start: 01-02-2022 End: 01-12-2022 Exposure to SARS-CoV-2 (event) Unable to assess [facility] Work Phone: Start: 11-23-2020 End: 04-06-2022 Tobacco use and exposure Smokeless tobacco non-user [facility] Work Phone: Start: 09-16-2013 Rare [facility] Start: 09-16-2013 None [facility] Start: 09-16-2013 Non-smoker [facility] Start: 11-19-2022 End: 12-03-2022 History of Social function [facility] Work Phone: Start: 11-19-2022 End: 12-03-2022 Tobacco use panel [facility] Work Phone: Adult Depression Screening Assessment 2 [facility] Work Phone: Start: 10-15-2024 End: 10-22-2024 Sex Male (finding) [facility] Medical Equipment Procedure Code Equipment Code [...] ABS FDA Start: 03-28-2018 FDA Start: 03-28-2018 ([id number]) [id number] FDA Start: 02-04-2023 ([id number]) ()[id number] FDA Start: 02-04-2023 ([id number]) ()[id number] FDA Start: 02-04-2023 FDA Start: 03-28-2018 [...] Assessment Result Facility 02-13-2023 Functional status Bedrest [facility] Work Phone: 02-05-2023 Functional status Chair [facility] Work Phone: 02-04-2023 Functional status Bedrest [facility] Work Phone: 01-26-2023 Functional status Chair mode [facility] Work Phone: 01-26-2023 Functional status With Assist of 2;Bedres t [facility] Work Phone: 01-25-2023 Functional status None [facility] Work Phone: 01-08-2023 Functional status Chair [facility] Work Phone: 07-11-2022 Functional status Ambulates [facility] Work Phone: 12-29-2021 Functional status Chair [facility] Work Phone: Mental Status Date Assessment Result Facility 06-03-2023 Cognitive function Voice/Name [facility] Work Phone: 02-13-2023 Cognitive function Voice/Name [facility] Work Phone: 02-11-2023 Cognitive function Awake;Drowsy [facility] Work Phone: 02-10-2023 Cognitive function Awake;Appropr iate;Follows Commands;Drowsy [facility] Work Phone: 02-05-2023 Cognitive function Voice/Name [facility] Work Phone: 02-04-2023 Cognitive function Appropriate;[facility] Work Phone: 01-26-2023 Cognitive function Voice/Name [facility] Work Phone: 01-21-2023 Cognitive function Level Of Cons ciousness Drowsy;Lethargic [facility] Work Phone: 01-08-2023 Cognitive function Voice/Name [facility] Work Phone: 01-04-2023 Cognitive function Voice/Name [facility] Work Phone: 07-11-2022 Cognitive function Voice/Name [facility] Work Phone: 07-10-2022 Cognitive function Appropriate;[facility] Work Phone: 03-02-2022 Cognitive function Voice/Name [facility] Work Phone: 12-29-2021 Cognitive function Voice/Name [facility] Work Phone: 12-06-2021 Cognitive function Level Of Cons ciousness Awake;Alert;Appropriate [facility] Work Phone: Clinical Notes 10-25-2014 to 10-12-2024 Note Date & Type Note Facility 10-12-2024 Evaluation note Diagnosis Onset Date Resolution Presence of cardiac pacemaker acute October 12, 2024 1:09pm Atrial fibrillation chronic October 12, 2024 1:09pm Diabetes chronic October 12 1:09pm HLD (hyperlipidemia) chronic [place] 2024 1:09pm HTN (hypertension) chronic October 12, 2024 1:09pm Sick sinus syndrome chronic October 12, 2024 1:09pm [facility] Work Phone: 1(243) 545-832611-20-2023 Procedure [facility] 02-13-2023 Consult note Author Haile Bautista [facility] February 13, 2023 2:50pm Note Date/Time February 13, 2023 2:5 0pm [facility] Medical Records Department [address] [place] [address] Counseling Note - Pharmacy 02/13/23 1449 MR#: [id number] Acct: [id number] Name: RICHARD ROY Rep #:[id number] : 1945 77 From: Haile Bautista PCP: Dr. Luis Caldera MD Status :ADM IN Y [id number] Med Reconciliation Pharmacy Service has performed discharge [...] Signature (if applicable): Date CC: ~ Signed [facility] Work Phone: 1(995) 721-204408-02-2023 Discharge summary Author Gabriel Giraldo [facility] February 13, 2023 2:24pm Note Date/Time February 13, 2023 2:1 5pm [facility] Medical Records Department [address] [place] [address] Transfer to [facility] MR#: [id number] Acct: [id number] Name: RICHARD ROY Rep #:[id number] : 1945 77 From: Gabriel Giraldo DO PCP: Dr. Luis Caldera MD Status :ADM IN Certification of patient admission REQUIRED AT TIME OF ADMISSION. I CERTIFY THAT POST-HOSPITAL ECF SERVICES ARE REQUIRED TO BE GIVEN ON AN IN-PATIENT BASIS BECAUSE OF THE ABOVE NAMED PATIENT'S NEED FOR CORRECTION CARE ON A CONTINUING BASIS FOR THE [...] mg PO QHS Patient Comments: PRN PER CORRECTION MAR. acetaminophen 325 mg Tablet 650 mg PO TID Patient Comments: PRN PER CORRECTION MAR cephalexin 500 mg capsule 500 mg [...] in before D/C Order can be placed): Custodial Facility 02/13/23 1424 <Electronically signed by Gabriel Giraldo DO> Cosigner Signature (if applicable): CC: Dr. Luis Caldera MD; Dr. Smith Leija MD ~ [facility] Work Phone: 1(411) 427-321908-01-2023 Progress note Author Gabriel Giraldo [facility] February 12, 2023 4:48pm Note Date/Time February 12, 2023 4:4 8pm [facility] Medical Records Department [address] [place] [address] Progress Note - Hospitalist 02/12/23 1639 MR#: [id number] Acct: [id number] Name: RICHARD ROY Rep #:[id number] : 1945 77 From: Gabriel Giraldo DO PCP: Dr. Luis Caldera MD Status :ADM IN Location: [place] [address] Reason for Visit Reason for Visit: Diagnoses [...] 76.5 H, Lymph % (Auto) 8.1 L, Cotton % (Auto) 12.5 H, Eos % (Auto) [...] 35 minutes Charges/Coding Visit Charges Inpatient E&M: 85529 Subs Hosp L2 02/12/23 1648 <Electronically signed by Gabriel Giraldo DO> Cosigner Signature (if applicable): CC: ~ Signed [facility] Work Phone: 1(326) 731-139408-01-2023 Consult note Author Smith Leija [facility] February 12, 2023 2:16pm Note Date/Time February 12, 2023 2:1 6pm [facility] Medical Records Department [address] [place] [address] Consultation - Infectious Dx 02/12/23 1412 MR#: [id number] Acct: [id number] Name: RICHARD ROY Rep #:[id number] : 1945 77 From: Smith huang MD PCP: Dr. Luis Caldera MD Status :ADM IN [facility] Assessment & Plan Assessment/Plan (1) Bacteremia: PLAN: [...] performed and neg except as noted above. [facility] Medical History AAA (abdominal aortic aneurysm) [...] Hx of abdominal surgery Social History housing: prison current occupational status: retired Smoking Status: Never [...] 76.5 H, Lymph % (Auto) 8.1 L, Cotton % (Auto) 12.5 H, Eos % (Auto) 0.8, Baso % (Auto) 0.1, Absolute Neuts(auto) 5.7, Absolute Lymphs (auto) 0.61 L, Nucleated RBC % 0, PT 19.3 H, INR 1.6 Rhythm Strip Rhythm Strip: paced Rate: 95 Ectopy: None 02/12/23 1416 <Electronically signed by Smith Leija MD> Cosigner Signature (if applicable): CC: Dr. Luis Caldera MD; Dr. Smith Leija MD~ Signed [facility] Work Phone: 1(776) 665-850108-01-2023 Discharge summary Author Dandy Sauer [facility] February 12, 2023 2:03am Note Date/Time February 11, 2023 5:[address] [facility] Medical Records Department [address] [place] [address] Emergency Department Summary 02/11/23 MR#: [id number] Acct: [id number] Name: RICHARD ROY Rep #:[id number] : 1945 77 From: Dandy Sauer MD PCP: Dr. Luis Caldera MD Status :ADM IN Location: [place] [address] HPI History of Present Illness Chief Complaint: [...] mostly the lethargy is the issue acutely. [facility] Medical History (Updated 02/11/23 @ 19:31 [...] Hx of abdominal surgery Social History housing: prison current occupational status: retired Smoking Status: Never [...] infection), Bacteremia Disposition Disposition: Acute Care Hospital [facility] Discharge Date/Time: 02/11/23 19:06 What to do if you have Problems For any increased pain, shortness of breath, bleeding, nausea or vomiting, chestpain, or any unexpected problems, contact your Primary Care Provider. Call [facility] ([phone]) or report to the closest Emergency Room. Call 911 if necessary. 02/12/23 0203 <Electronically signed by Dandy Sauer MD> Cosigner Signature (if applicable): CC: Dr. Luis Caldera MD ~ Signed [facility] Work Phone: 1(735) 465-105807-31-2023 History and physical note Author Jesus Burnham [facility] February 11, 2023 7:38pm Note Date/Time February 11, 2023 7:39 pm [facility] Medical Records Department [address] [place] [address] History & Physical Exam 02/11/231928 MR#: [id number] Acct: [id number] Name: RICHARD ROY Rep #:[id number] : 1945 77 From: Jesus Burnham MD PCP: Dr. Luis Caldera MD Status :ADM IN [facility] [facility] HPI - General General Date of Admission: [...] tract infection and sent back to the prison facility, however, today the patient has become more obtunded and sleeping excessively. Lactic acid elevation is noted and patient is on pacemaker. He denies any chest pain, shortness of breath and/or fevers orchills however is not a great historian at present time. Patient's is present at bedside and apparently the son is the DURABLE POWER OF BOARDING MOTHER for healthcare and has orders signed for DNR CCA with no intubation. He will be admitted to the general medical floor placed on Rocephin, consult for infectiousdisease due to new implanted pacemaker. [facility] Medical History Amputation of right great [...] Hx of abdominal surgery Social History housing: prison current occupational status: retired Smoking Status: Never [...] on Coumadin Charges/Coding Visit Charges Inpatient E&M: 86209 Init Hosp L2 02/11/231937 <Electronically signed by Jesus Burnham MD> Cosigner Signature (if applicable): CC: Dr. Luis Caldera MD; Dr. Jesus Burnham MD~ Signed [facility] Work Phone: 1([phone]) 827-265707-17-2023 Miscellaneous Notes* Telephone Encounter - Tania Heller LPN - 01/28/2023 2:22 PM EDT Miya with [facility] calls to report pt was admitted to their facility over the weekend. Miya is requesting immunization record be faxed to: [phone]. Immunization record faxed as requested. [facility] Discharge summary Author Ryan Tinoco [facility] January 26, 2023 12:56pm Note Date/Time January 26, 2023 12:4 6pm [facility] Medical Records Department [address] [place] [address] Discharge Summary 01/26/23 1157 MR#: [id number] Acct: [id number] Name: RICHARD ROY Rep #:[id number] : 1945 77 From: Ryan Delgado PCP: Dr. uLis Caldera MD Status :ADM IN Location: [place] [address] 1 Providers Date of Admission: 01/21/23 Date of Discharge: 01/26/23 Primary Care Physician: Dr. Luis Caldera MD Consultations 01/21/23 11:52 Consult: Gastroenterology Routine Consulting Provider: Goyo Gastroentermit[facility] Reason for Consult: Upper GI BLeed EMERGENT [...] is a 77-year-old gentleman being admitted from [facility] for multiple episodes of syncope and [...] the . His medical care is under [facility]. 01/22: Hemoglobin dropped to 8.9. [...] there was 2 dropped heartbeat in EKG. real estate lawyer shows heart rate slowed down to 48 to 60/min. EKG in the morning about 6 AM today shows sinus rhythm with second- degree Mobitz type II block, RBBB, LAFB bifascicular block. Patient has history of bifascicular block. I talked to the patient's and informed her about the update. Patient has history of ascending aortic aneurysmand had that repaired along with aortic valve in [facility]. His employment legal assistant is Dr. Huston in [facility]. I think this is most probably due to start of the octreotide drip as patient was in sinus normal rhythm at time ofadmission. Octreotide discontinued. Blacking Wheel Tender consulted. 2D echo ordered. 01/23: Echo states EF 55 to 60%, normal LV systolic function. Trivial MR. Mild diffuse aortic valve calcification. Normal left atrium. Plan: Blacking Wheel Tender will talk to Dr. Chandra regarding assessment for pacemaker 01/24: Patient has hypernatremia and hyperchloremia. IV fluid D5W started. Patient is still has AV block, P waves but rhythm is irregular. Twelve-lead EKGordered. Discussed with the employment legal assistant. Dr. Ling will talk to Dr. Chandra. 01/25: For now plan is to monitor. No plan for pacemaker as per the employment legal assistant. real estate lawyer shows irregular heartbeat , Mobitz type II. [...] or advanced directive. His is power of real estate associate attorney for health. After discussion of benefits/risks [...] Heart rate in 50s.. Discussed with the employment legal assistant. No chest pain or tightness. Physical exam [...] 78.4 H, Lymph % (Auto) 8.1 L, Cotton % (Auto) 9.6, Eos % (Auto) 1.6, [...] Qty: 0 0RF Patient Comments: PRN PER CORRECTION MAR melatonin 3 mg Tablet 3 mg PO QHS PRN PRN (Reason: Insomnia) Qty: 1 0RF Patient Comments: PRN PER CORRECTION MAR. duloxetine [Cymbalta] 60 mg capsule,delayed release(DR/EC) [...] in before D/C Order can be placed): Custodial Facility Charges/Coding Visit Charges Inpatient E&M: 24583 Disch Hosp >30min 01/26/23 1256 <Electronically signed by Ryan Tinoco MD> Cosigner Signature (if applicable): CC: Dr. Luis Caldera MD; Dr. Ryan Tinoco MD~ Signed [facility] Work Phone: 1(180) 168-286207-15-2023 Discharge summary Author Ryan Tinoco [facility] January 26, 2023 11:57am Note Date/Time January 26, 2023 7:59 am [facility] Medical Records Department [address] [facility] [place] [address] Transfer to [facility] MR#: [id number] Acct: [id number] Name: RICHARD ROY Rep #:[id number] : 1945 77 From: Ryan Delgado PCP: Dr. Luis Caldera MD Status :ADM IN Certification of patient admission REQUIRED AT TIME OF ADMISSION. I CERTIFY THAT POST-HOSPITAL F SERVICES ARE REQUIRED TO BE GIVEN ON AN IN-PATIENT BASIS BECAUSE OF THE ABOVE NAMED PATIENT'S NEED FOR CORRECTION CARE ON A CONTINUING BASIS FOR THE CONDITION(S) FOR WHICH HE/SHE WAS RECEIVING IN-PATIENT HOSPITAL SERVICES PRIOR TO HIS/HER TRANSFER TO THE [facility]. 01/26/23 1157<Electronically signed by Ryan Tinoco MD> [...] is a 77-year-old gentleman being admitted from [facility] for multiple episodes of syncope and [...] the . His medical care is under [facility]. 01/22: Hemoglobin dropped to 8.9. [...] there was 2 dropped heartbeat in EKG. real estate lawyer shows heart rate slowed down to 48 to 60/min. EKG in the morning about 6 AM today shows sinus rhythm with second- degree Mobitz type II block, RBBB, LAFB bifascicular block. Patient has history of bifascicular block. I talked to the patient's and informed her about the update. Patient has history of ascending aortic aneurysmand had that repaired along with aortic valve in [facility]. His employment legal assistant is Dr. Huston in [facility]. I think this is most probably due to start of the octreotide drip as patient was in sinus normal rhythm at time ofadmission. Octreotide discontinued. Blacking Wheel Tender consulted. 2D echo ordered. 01/23: Echo states EF 55 to 60%, normal LV systolic function. Trivial MR. Mild diffuse aortic valve calcification. Normal left atrium. Plan: Blacking Wheel Tender will talk to Dr. Chandra regarding assessment for pacemaker 01/24: Patient has hypernatremia and hyperchloremia. IV fluid D5W started. Patient is still has AV block, P waves but rhythm is irregular. Twelve-lead EKGordered. Discussed with the employment legal assistant. Dr. Ling will talk to Dr. Chandra. 01/25: For now plan is to monitor. No plan for pacemaker as per the employment legal assistant. real estate lawyer shows irregular heartbeat , Mobitz type II. [...] or advanced directive. His is power of real estate associate attorney for health. After discussion of benefits/risks [...] Qty: 0 0RF Patient Comments: PRN PER CORRECTION MAR melatonin 3 mg Tablet 3 mg PO QHS PRN PRN (Reason: Insomnia) Qty: 1 0RF Patient Comments: PRN PER CORRECTION MAR. donepezil 10 mg tablet 10 mg PO QHS duloxetine [Cymbalta] 60 mg capsule,delayed release(DR/EC) 60 mg PO DAILY cholecalciferol (vitamin D3) 1,250 mcg (50,000 unit) tablet 1,250 mcg PO MO insulin lispro [Humalog KwikPen Insulin] 100 unit/mL insulin pen See Protocol subcut [facility] Protocol: 6. Sliding Scale Insulin Custom [...] in before D/C Order can be placed): Custodial Facility (6) Anemia Qualifiers: Anemia type: iron deficiency Iron deficiency anemia type: other iron deficiency Qualified Code(s): D50.8 - Other iron deficiency anemias 01/26/23 3487 <Electronically signed by Ryan Tinoco MD> Cosigner Signature (if applicable): CC: Dr. Luis Caldera MD; Dr. Lizzeth Riggs MD ~ [facility] Work Phone: 1(286) 384-863907-14-2023 Progress note Author Lizzeth Riggs [facility] January 25, 2023 4:08pm Note Date/Time January 25, 2023 1:09 pm [facility] Medical Records Department [address] [place] [address] Progress Note - Cardiology 01/25/23 1308 MR#: [id number] Acct: [id number] Name: RICHARD ROY Rep #:[id number] : 1945 77 From: Rebecca LOZA PA PCP: Dr. Luis Caldera MD Status :ADM IN Location: [place] [address] Documented by User: DENIA Wilkinson 01/25/23 14:14 [...] Albumin (DAVID) 2.5 L, Albumin/Globulin (DAVID) 1.4, Jvtlb-3-Gktngtwoa DAVID 0.2, Xcpmg-8-Tndfrvteq DAVID 0.6, Beta-Globulins (DAVID) 0.7, Gamma Globulins [...] 83.4 H, Lymph % (Auto) 5.9 L, Cotton % (Auto) 7.8, Eos % (Auto) 1.0, [...] 83.4 H, Lymph % (Auto) 5.9 L, Cotton % (Auto) 7.8, Eos % (Auto) 1.0, [...] stable hemodynamically. Charges/Coding Visit Charges Inpatient E&M: 19828 Subs Hosp L2 Documented by User: Dr. [...] notes and documentation Patient to follow-up as employment legal assistant Dr. Chandra with the results of the event monitor. To evaluate for permanent pacemaker implant. 01/25/23 1414 <Electronically signed by Rebecca LOZA> Cosigner Signature (if applicable): 01/25/23 1608 <Electronically signed by Lizzeth Riggs MD> CC: ~ Signed [facility] Work Phone: 1(441) 672-855907-14-2023 Progress note Author Ryan Tinoco [facility] January 25, 2023 2:08pm Note Date/Time January 25, 2023 9:30 am [facility] Medical Records Department [address] [place] [address] Progress Note - Hospitalist 01/25/23 0928 MR#: [id number] Acct: [id number] Name: RICHARD ROY Rep #:[id number] : 1945 77 From: Ryan Delgado PCP: Dr. Luis Caldera MD Status :ADM IN Location: [place] [address] Reason for Visit Reason for Visit: Diagnoses [...] 83.4 H, Lymph % (Auto) 5.9 L, Cotton % (Auto) 7.8, Eos % (Auto) 1.0, [...] Heart rate in 50s.. Discussed with the employment legal assistant. No chest pain or tightness. Physical exam [...] is a 77-year-old gentleman being admitted from [facility] for multiple episodes of syncope and [...] the . His medical care is under [facility]. 01/22: Hemoglobin dropped to 8.9. [...] Albumin (DAVID) 2.5 L, Albumin/Globulin (DAVID) 1.4, Iicbg-7-Aqywepebc DAVID 0.2, Pzfgz-8-Iskpilaxu DAVID 0.6, Beta-Globulins (DAVID) 0.7, Gamma Globulins [...] 83.4 H, Lymph % (Auto) 5.9 L, Cotton % (Auto) 7.8, Eos % (Auto) 1.0, [...] there was 2 dropped heartbeat in EKG. real estate lawyer shows heart rate slowed down to 48 to 60/min. EKG in the morning about 6 AM today shows sinus rhythm with second- degree Mobitz type II block, RBBB, LAFB bifascicular block. Patient has history of bifascicular block. I talked to the patient's and informed her about the update. Patient has history of ascending aortic aneurysmand had that repaired along with aortic valve in [facility]. His employment legal assistant is Dr. Huston in [facility]. I think this is most probably due to start of the octreotide drip as patient was in sinus normal rhythm at time ofadmission. Octreotide discontinued. Blacking Wheel Tender consulted. 2D echo ordered. 01/23: Echo states EF 55 to 60%, normal LV systolic function. Trivial MR. Mild diffuse aortic valve calcification. Normal left atrium. Plan: Blacking Wheel Tender will talk to Dr. Chandra regarding assessment for pacemaker 01/24: Patient has hypernatremia and hyperchloremia. IV fluid D5W started. Patient is still has AV block, P waves but rhythm is irregular. Twelve-lead EKGordered. Discussed with the employment legal assistant. Dr. Ling will talk to Dr. Chandra. 01/25: For now plan is to monitor. No plan for pacemaker as per the employment legal assistant. real estate lawyer shows irregular heartbeat , Mobitz type II. [...] or advanced directive. His is power of real estate associate attorney for health. After discussion of benefits/risks [...] systolic function Charges/Coding Visit Charges Inpatient E&M: 88849 Subs Hosp L2 01/25/23 1408 <Electronically signed by Ryan Tinoco MD> Cosigner Signature (if applicable): CC: ~ Signed [facility] Work Phone: 1(646) 216-194507-13-2023 Progress note Author [facility] January 24, 2023 8:23pm Note Date/Time January 24, 2023 8:23 pm [facility] Medical Records Department [address] [place] [address] Progress Note - Hospitalist 01/24/232021 MR#: [id number] Acct: [id number] Name: RICHARD ROY Rep #:[id number] : 1945 77 From: Karen Aly MD PCP: Dr. 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 He is asymptomatic. Cardiology following and made aware also by RN that it is recurrent. 01/24/232022 <Electronically signed by Karen Aly MD> Cosigner Signature (if applicable): CC: ~ Signed [facility] Work Phone: 1(754) 955-685307-13-2023 Progress note Author Liu Hackett [facility] January 24, 2023 5:07pm Note Date/Time January 24, 2023 5:07 pm [facility] Medical Records Department [address] [place] [address] Progress Note - GI 01/24/23 1703 MR#: [id number] Acct: [id number] Name: RICHARD ROY Rep #:[id number] : 1945 77 From: Liu Hackett DO PCP: Dr. Luis Caldera MD Status :ADM IN Location: [place] [id number]- [id number] Subjective Subjective Patient laying in bed [...] 82.8 H, Lymph % (Auto) 5.3 L, Cotton % (Auto) 8.9, Eos % (Auto) 1.3, [...] ensure healing. Charges/Coding Visit Charges Inpatient E&M: 98349 Subs Hosp L3 01/24/237 <Electronically signed by Liu Hackett DO> Cosigner Signature (if applicable): CC: ~ Signed [facility] Work Phone: 1(791) 821-413407-13-2023 Progress [facility] January 24, 2023 4:25pm Note Date/Time January 24, 2023 1:41 pm [facility] Medical Records Department [address] [place] [address] Progress Note - Cardiology 01/24/23 1338 MR#: [id number] Acct: [id number] Name: RICHARD ROY Rep #:[id number] : 1945 77 From: Rebecca LOZA PCP: Dr. Luis Caldera MD Status :ADM IN Location: [place] [id number]- [id number] Documented by User: DENIA Wilkinson 01/24/23 [...] 82.8 H, Lymph % (Auto) 5.3 L, Cotton % (Auto) 8.9, Eos % (Auto) 1.3, [...] 82.8 H, Lymph % (Auto) 5.3 L, Cotton % (Auto) 8.9, Eos % (Auto) 1.3, [...] by GI. Charges/Coding Visit Charges Inpatient E&M: 04187 Subs Hosp L2 Documented by User: Dr. [...] by Lizzeth Riggs MD> CC: ~ Signed [facility] Work Phone: 1(857) 146-467807-13-2023 Miscellaneous Notes* Telephone Encounter - Tamika Grijalva [...] Patient's calling to say patient was at [facility] for rehabilitation after his hospitalization @ [facility] for confusion on 01/04. He was sent by squad to [facility] from [facility] on 01/21 due to episode of decreased [...] Lawn. Vannessa Jorge, RN documented in this encounterMer[facility]07-13-2023 Progress note Author Ryan Tinoco [facility] January 24, 2023 1:11pm Note Date/Time January 24, 2023 8:[address] [facility] Medical Records Department [address] [place] [address] Progress Note - Hospitalist 01/24/23 0758 MR#: [id number] Acct: [id number] Name: RICHARD ROY Rep #:[id number] : [...] Antibody < 0.2, Sm (Martinez) Antibody <0.2, BUDDHIST MONK Antibody <0.2, Scl-70 Scleroderma Ab <0.2, Double [...] 82.8 H, Lymph % (Auto) 5.3 L, Cotton % (Auto) 8.9, Eos % (Auto) 1.3, [...] waves. Twelve-lead EKG ordered.. Discussed with the employment legal assistant. No chest pain or tightness. General: Awake [...] is a 77-year-old gentleman being admitted from [facility] for multiple episodes of syncope and [...] the . His medical care is under [facility]. 01/22: Hemoglobin dropped to 8.9. [...] there was 2 dropped heartbeat in EKG. real estate lawyer shows heart rate slowed down to 48 to 60/min. EKG in the morning about 6 AM today shows sinus rhythm with second- degree Mobitz type II block, RBBB, LAFB bifascicular block. Patient has history of bifascicular block. I talked to the patient's and informed her about the update. Patient has history of ascending aortic aneurysmand had that repaired along with aortic valve in [facility]. His employment legal assistant is Dr. Huston in [facility]. I think this is most probably due to start of the octreotide drip as patient was in sinus normal rhythm at time ofadmission. Octreotide discontinued. Blacking Wheel Tender consulted. 2D echo ordered. 01/23: Echo states EF 55 to 60%, normal LV systolic function. Trivial MR. Mild diffuse aortic valve calcification. Normal left atrium. Plan: Blacking Wheel Tender will talk to Dr. Chandra regarding assessment for pacemaker 01/24: Patient has hypernatremia and hyperchloremia. IV fluid D5W started. Patient is still has AV block, P waves but rhythm is irregular. Twelve-lead EKGordered. Discussed with the employment legal assistant. Dr. Ling will talk to Dr. Chandra. [...] or advanced directive. His is power of real estate associate attorney for health. After discussion of benefits/risks [...] maxillary and right frontal sinus Electronically Signed: aRvindra Sierra MD at 10:43 EDT , Chest X-Ray 01/21/23 09:30 IMPRESSION: No acute abnormality is seen. Echocardiogram 01/22/23 08:24 Interpretation Summary The estimated ejection fraction is 55-60 %. Normal LV systolic function Charges/Coding Visit Charges Inpatient E&M: 04211 Subs Hosp L3 01/24/23 1311 <Electronically signed by Ryan Tinoco MD> Cosigner Signature (if applicable): CC: ~ Signed [facility] Work Phone: 1(383) 822-412607-12-2023 Progress note Author Lizzeth Riggs [facility] January 23, 2023 2:45pm Note Date/Time January 23, 2023 10:0 0am [facility] Medical Records Department [address] [place] [address] Progress Note - Cardiology 01/23/23 0946 MR#: [id number] Acct: [id number] Name: RICHARD ROY Rep #:[id number] : [...] 85.3 H, Lymph % (Auto) 4.8 L, Cotton % (Auto) 7.1, Eos % (Auto) 0.7, [...] 85.3 H, Lymph % (Auto) 4.8 L, Cotton % (Auto) 7.1, Eos % (Auto) 0.7, [...] appears stable. Charges/Coding Visit Charges Inpatient E&M: 90168 Subs Hosp L2 01/23/23 1000 <Electronically signed by Rebecca LOZA> Cosigner Signature (if applicable): 01/23/23 1445 <Electronically signed by Lizzeth Riggs MD> CC: ~ Signed [facility] Work Phone: 1(237) 804-158107-12-2023 Procedure [facility] 01-23-2023 Procedure [facility]07-12-2023 Progress note Author Ryan Tinoco [facility] January 23, 2023 9:01am Note Date/Time January 23, 2023 9:01 am [facility] Medical Records Department [address] [place] [address] Progress Note - Hospitalist 01/23/23 0852 MR#: [id number] Acct: [id number] Name: RICHARD ROY Rep #:[id number] : [...] 85.3 H, Lymph % (Auto) 4.8 L, Cotton % (Auto) 7.1, Eos % (Auto) 0.7, [...] every third beat dropped. Discussed with the employment legal assistant. No chest pain or tightness. General: Oriented [...] is a 77-year-old gentleman being admitted from [facility] for multiple episodes of syncope and [...] the . His medical care is under [facility]. 01/22: Hemoglobin dropped to 8.9. [...] there was 2 dropped heartbeat in EKG. real estate lawyer shows heart rate slowed down to 48 to 60/min. EKG in the morning about 6 AM today shows sinus rhythm with second- degree Mobitz type II block, RBBB, LAFB bifascicular block. Patient has history of bifascicular block. I talked to the patient's and informed her about the update. Patient has history of ascending aortic aneurysmand had that repaired along with aortic valve in [facility]. His employment legal assistant is Dr. Huston in [facility]. I think this is most probably due to start of the octreotide drip as patient was in sinus normal rhythm at time ofadmission. Octreotide discontinued. Blacking Wheel Tender consulted. 2D echo ordered. 01/23: Echo states EF 55 to 60%, normal LV systolic function. Trivial MR. Mild diffuse aortic valve calcification. Normal left atrium. Plan: Blacking Wheel Tender will talk to Dr. Chandra regarding assessment [...] or advanced directive. His is power of real estate associate attorney for health. After discussion of benefits/risks [...] systems), coordination with cardiology and GI business process consultant, review of labs and imaging is 50 minutes. Visit Charges Inpatient E&M: 34147 Subs Hosp L3 01/23/23 09 <Electronically signed by Ryan Tinoco MD> Cosigner Signature (if applicable): CC: ~ Signed [facility] Work Phone: [phone]) 695-509907-11-2023 Consult note Author Rebecca Leon [facility] January 22, 2023 4:28pm Note Date/Time January 22, 2023 4:07 pm [facility] Medical Records Department [address] [place] [address] Consultation - Cardiology 01/22/23 1605 MR#: [id number] Acct: [id number] Name: RICHARD ROY Rep #:[id number] : [...] room yesterday for syncope. The nurses at [facility] had noted that he was unresponsive at [...] last received his metoprolol while in the prison on 01/20/2023. I did speak with , [...] were adjusted at his last hospital stay. [facility] Medical History (Updated 01/22/23 @ 16:25 by Rebecca LOAZ, PA) Amputation of right great toe Aortic [...] Hx of abdominal surgery Social History housing: prison current occupational status: retired Smoking Status: Never [...] Charges/Coding Visit Charges Office Visits / Consults: 57715 IP Consult L3 Objective Data Vital Signs: [...] RDW Coeff of Nathaniel 15.5 H, Plt [id number], MPV 10.1, Immature Gran % (Auto) 3.300 H, Neut % (Auto) 81.9 H, Lymph % (Auto) 5.9 L, Cotton % (Auto) 8.0, Eos % (Auto) 0.7, [...] 81.9 H, Lymph % (Auto) 5.9 L, Cotton % (Auto) 8.0, Eos % (Auto) 0.7,Baso [...] Caldera MD; Dr. Lizzeth Riggs MD~ Signed [facility] Work Phone: 1([phone]) 781-791307-11-2023 Progress note Author Ryan Tinoco [facility] January 22, 2023 8:38am Note Date/Time January 22, 2023 8:22 am [facility] Medical Records Department [address] [place] [address] Progress Note - Hospitalist 01/22/23 0819 MR#: [id number] Acct: [id number] Name: RICHARD ROY Rep #:[id number] : [...] 87.8 H, Lymph % (Auto) 7.5 L, Cotton % (Auto) 2.4, Eos % (Auto) 0.0, [...] Clarity Clear, Urine pH 5.0, Ur Specific [place] 1.020, Urine Protein 15 H, Urine Glucose [...] RDW Coeff of Nathaniel 15.5 H, Plt [id number], MPV 10.1, Immature Gran % (Auto) 3.300 H, Neut % (Auto) 81.9 H, Lymph % (Auto) 5.9 L, Cotton % (Auto) 8.0, Eos % (Auto) 0.7, [...] havingirregular heartbeat after midnight, initially A-fib on treater. After that about 5 AM patient started [...] is a 77-year-old gentleman being admitted from [facility] for multiple episodes of syncope and [...] the . His medical care is under [facility]. 01/22: Hemoglobin dropped to 8.9. [...] there was 2 dropped heartbeat in EKG. real estate lawyer shows heart rate slowed down to 48 to 60/min. EKG in the morning about 6 AM today shows sinus rhythm with second- degree Mobitz type II block, RBBB, LAFB bifascicular block. Patient has history of bifascicular block. I talked to the patient's and informed her about the update. Patient has history of ascending aortic aneurysmand had that repaired along with aortic valve in [facility]. His employment legal assistant is Dr. Huston in [facility]. I think this is most probably due to start of the octreotide drip as patient was in sinus normal rhythm at time ofadmission. Octreotide discontinued. Blacking Wheel Tender consulted. 2D echo ordered. 3. Essential hypertension [...] or advanced directive. His is power of real estate associate attorney for health. After discussion of benefits/risks procedures involved with full code, DNR CC arrest and DNR CC, the patient and his opted for full code. Patient does want artificial life support including intubation, tube feed, ventilator and/chest compression, central venous catheter, vasopressor and DC shock if needed Charges/Coding Visit Charges Inpatient E&M: 43333 [facility] Hosp 01/22/23 0838 <Electronically signed by Ryan Tinoco MD> Cosigner Signature (if applicable): CC: ~ Signed [facility] Work Phone: 1(212) 194-263107-10-2023 Consult note Author Liu Hackett [facility] January 21, 2023 7:07pm Note Date/Time January 21, 2023 7:04 pm [facility] Medical Records Department [address] [place] [address] Consultation - GI 01/21/23 1902 MR#: [id number] Acct: [id number] Name: RICHARD ROY Rep #:[id number] : 1945 77 From: Liu Hackett DO PCP: Dr. Luis Caldera MD Status :ADM IN Location: ICU CVICU20 2-1 HPI Consult Data Date of Consult: 01/21/23 HPI Narrative Reason for Consultation: GI bleed HPI Narrative: RICHARD ROY, is a 77 M who presents with melena goals from prison. He is on warfarin for history of DVT and atrial fibrillation. [facility]. He was admitted between 01/05 to 01/08/23 for confusion and generalized weakness, stroke was ruled out and was sent to prison there. Started getting confused within the past [...] down to 10.9 from 13.1 on discharge. [facility] Medical History Amputation of right great [...] Hx of abdominal surgery Social History housing: prison current occupational status: retired Smoking Status: Never [...] 87.8 H, Lymph % (Auto) 7.5 L, Cotton % (Auto) 2.4, Eos % (Auto) 0.0, [...] Clarity Clear, Urine pH 5.0, Ur Specific [place] 1.020, Urine Protein 15 H, Urine Glucose [...] 6 hours. Charges/Coding Visit Charges Inpatient E&M: 14057 Init Hosp L3 01/21/23 190 <Electronically signed by Liu Hackett DO> Cosigner Signature (if applicable): CC: Dr. Luis Caldera MD~ Signed [facility] Work Phone: 1([phone]) 833-136007-10-2023 Discharge summary Author Dandy Sauer [facility] January 21, 2023 5:25pm Note Date/Time January 21, 2023 9:06 am [facility] Medical Records Department [address] [place] [address] Emergency Department Summary 01/21/23 MR#: [id number] Acct: [id number] Name: RICHARD ROY Rep #:[id number] : 1945 77 From: Dandy Sauer MD PCP: Dr. Luis Caldera MD Status :ADM IN Location: ICU CVICU20 2-1 HPI History of Present Illness Chief Complaint: Syncope Informant: spouse/S.O., EMS and SNF Narrative Narrative: Patient sent from [facility] where he has been for several [...] pain, but he denies it right now. [facility] Medical History Amputation of right great [...] 09:[address] Dandy Sauer MD) housing: prison current occupational status: retired Smoking Status: Never [...] place including the state. Downgoing toes bilaterally [place] Coma Scale: document GCS findings To Voice [...] 87.8 H Lymph % (Auto) 7.5 L Cotton % (Auto) 2.4 Eos % (Auto) 0.0 [...] Management Discussion w/another healthcare provider: Hospitalist and Janitorial Cleaner (GI) Critical Care Time Critical Care Time: Yes Critical care time (excluding procedures): 30-74 minutes (33 min), Including time spent:, Discussing w/Patient &/or Family/Virtualization Engineer, Discussing w/Consultants, Arranging Admission or Transfer and Performing Direct Patient Care at Bedside Discharge Plan Dx/Rx/DC Orders Clinical Impression: Acute encephalopathy, Syncope, Supratherapeutic INR, ABLA (acute blood loss anemia), Upper gastrointestinal bleeding, Warfarin-induced coagulopathy Disposition Disposition: Acute Care Hospital [facility] Capacity Capacity Assessment Tool Can the [...] your Primary Care Provider. Call [facility] ([phone]) or report to the closest Emergency Room. Call 911 if necessary. 01/21/23 1725 <Electronically signed by Dandy Sauer MD> Cosigner Signature (if applicable): CC: Dr. Luis Caldera MD ~ Signed [facility] Work Phone: 1([phone]) 476-434707-10-2023 History and physical note Author Ryan Tinoco [facility] January 21, 2023 12:24pm Note Date/Time January 21, 2023 11:5 8am [facility] Medical Records Department [address] [place] [address] H&P Exam - Hospitalist 01/21/23 1156 MR#: [id number] Acct: [id number] Name: RICHARD ROY Rep #:[id number] : 1945 77 From: Ryan Delgado PCP: Dr. Luis Caldera MD Status :ADM IN Location: ICU CVICU20 2-1 HPI - General General Date of Admission: 01/21/23 Date of Service: 01/21/23 Chief Complaint: Patient was unresponsive in the morning. Had large black tarrystool. HPI Narrative RICHARD ROY, is a 77 M gentleman was brought from [facility] to prison for syncopal episodes and black tarry stool. Prior to that he was admitted between 01/05 to 01/08/23 for confusion and generalized weakness, stroke was ruledout and was sent to prison there. Patient is not a good historian. As per the nursing report, patient had multiple short syncopal episodes in the morning after he had a large black tarry stool. Patient had been having dark stool for last couple days in prison. Patient does not remember himself from dementia/depression. [...] further admitted in in the context of [facility] Medical History Amputation of right great [...] Hx of abdominal surgery Social History housing: prison current occupational status: retired Smoking Status: Never [...] 87.8 H, Lymph % (Auto) 7.5 L, Cotton % (Auto) 2.4, Eos % (Auto) 0.0, [...] Clarity Clear, Urine pH 5.0, Ur Specific [place] 1.020, Urine Protein 15 H, Urine Glucose [...] is a 77-year-old gentleman being admitted from [facility] for multiple episodes of syncope and [...] the . His medical care is under [facility]. 2 Syncopal episode most likely [...] or advanced directive. His is power of real estate associate attorney for health. After discussion of benefits/risks procedures involved with full code, DNR CC arrest and DNR CC, the patient and his opted for full code. Patient does want artificial life support including intubation, tube feed, ventilator and/chest compression, central venous catheter, vasopressor and DC shock if needed Total time spent in [id number] encounter in discussion of advanced directive 17 [...] 87.8 H, Lymph % (Auto) 7.5 L, Cotton % (Auto) 2.4, Eos % (Auto) 0.0, [...] Clarity Clear, Urine pH 5.0, Ur Specific [place] 1.020, Urine Protein 15 H, Urine Glucose (UA) 100 H, Urine Ketones 15 H, Urine Occult Blood Negative, Urine Nitrite Negative, Urine Bilirubin 1 H, Urine Urobilinogen Normal, Ur Leukocyte Esterase Negative, Urine RBC 0 SEEN, Urine WBC 0-5 SEEN, Ur Squamous Epith Cells 0-5 SEEN, Urine Bacteria 0 SEEN, Urine Mucus 0 SEEN Charges/Coding Visit Charges Inpatient E&M: 55564 Init Hosp L3 Procedures Hospitalists Procedures: 95868 Advncd Care Plan 30 Min 01/21/233 <Electronically [...] MD; Dr. Ryan Tinoco MD ~* Signed [facility] Work Phone: 1(241) 717-774706-23-2023 Miscellaneous Notes* Telephone Encounter - Amada Cohn [...] again recommend ER evaluation. documented in this encounterMer[facility]06-23-2023 Miscellaneous Notes* Telephone Encounter - Tamika [...] 01/04. Vannessa Jorge RN documented in this encounterMercer County Community Hospital06-22-2023 History of Present illness Narrative* Justina [...] included: Therapeutic exercise, Neuromuscular re-education, Therapeutic activities, Self-penitentiary management, and Gait training. Goals for Episode [...] PARTIALLY MET, improved 8 to 9 reps Zapata in home exercise program including cardiovascular exercise. [...] with an (*). Patient education as noted. Self-Shelter Management: 1: *strongly enouraged f/u with physician [...] 5 Justina Escoto PT documented in this encounterMercer [facility]06-19-2023 History of Present illness Narrative* Justina [...] THERAPY PHYSICAL THERAPY TREATMENT NOTE ASSESSMENT: Richard Ryo tolerated the session with fatigue. He demonstrated [...] Ira KashuALISIA real PT documented in this encounterMercer County [facility] Hospital06-15-2023 History of Present illness Narrative* Justina [...] Treatment Time Minutes (timed/untimed): 40 Ira Richard, IT SOFTWARE ENGINEER Justina Escoto, PT documented in this encounterMercer County Community Hospital06-12-2023 History of Present illness Narrative* Justina [...] was facilitated with verbal and visual cueing. Self-Shelter Management: 1: *strongly encouraged pt. to be [...] 40 Justina Escoto PT documented in this encounterMercer County [facility] Hospital06-05-2023 History of Present illness Narrative* Justina [...] of gait belt. Patient education as noted. Self-Shelter Management: 1: *discussed automatic lights 2: *discussed [...] 40 Justina Escoto PT documented in this encounterMercer County [facility] Hospital06-02-2023 History of Present illness Narrative* Justina [...] 40 Justina Escoto PT documented in this encounterMercer County [facility] Hospital05-31-2023 History of Present illness Narrative* Justina [...] 40 Justina O'Rafa, PT documented in this encounterMercer County Community Hospital05-09-2023 Miscellaneous Notes* Telephone Encounter - GABI [...] to the pharmacy. Please call patient at: [phone]. Nola Castro Pss documented in this encounterMercer County Community Hospital05-08-2023 Miscellaneous Notes* Telephone Encounter - Tania [...] and result): 09/24/2022 2.5 documented in this encounterMercer County Community Hospital04-10-2023 History of Present illness Narrative* Zachary [...] Patient, Diabetic Foot Care documented in this encounterMercer County Community Hospital04-10-2023 Instructions* Patient Instructions* Zachary Obregon - [...] (or decreased sensation in your feet) a drum maker should always cut your toenails. Be Careful [...] Go to your health care provider or drum maker to treat these conditions. documented in this encounterMercer County Community Hospital03-14-2023 Miscellaneous Notes* Telephone Encounter - Rebecca [...] Information or narrative: no documented in this encounterMercer County Community Hospital02-24-2023 Miscellaneous Notes* Telephone Encounter - Suzanne Connelly RN - 09/07/2022 1:11 PM EST Call to patient. Provided number to schedule- [phone]. Offered to transfer patient to schedulebut patient declined to schedule stating he could call later. PAOLA Potter, RN September 07, 2022 1:11 PM * Telephone Encounter - Jojo Kaur MD - 09/07/2022 11:39 AM EST Suzanne please let patient know how to proceed with driving evaluation I already put the order in computer documented in this encounterMercer County Community Hospital02-24-2023 History of Present illness Narrative* Jojo [...] evaluation of folllow up after hospitalization in [facility]. he was admitted because of [...] Since covid hit they went to [facility] and was staying in the house by [...] delayed closure on 05/28/18. Dr. Obregon at [facility] COLONOSCOPY 10/10/2021 repeat in 3 years [...] one time a week. blood sugar diagnostic (PhotoSolarTOUCH ULTRA TEST) test strip Test blood sugar(s) [...] gait ,unsteady Cannot tandem Jojo Kaur M.D. [facility] Department of Neurology Total time in minutes [...] lights on at night. documented in this encounterMercer County Community Hospital02-14-2023 Miscellaneous Notes* Telephone Encounter - Tamika [...] no Tania Heller LPN documented in this encounterMercer County Community Hospital02-02-2023 Miscellaneous Notes* Telephone Encounter - Grecia [...] notify patient. Grecia Bustillo documented in this encounterMercer County Community Hospital01-31-2023 Miscellaneous Notes* Telephone Encounter - Tamika [...] Information or narrative: no documented in this encounterMercer County Community Hospital01-26-2023 History of Present illness Narrative* Abdulaziz [...] 12 months ago. Going to schedule appointment [facility]. 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 Asymtpomatic still on medical management. Has completed his home PT/OT. Echo and stress test at [facility] were negative/normal. Has follow up with Dr. Huston on 12/03. questioning if they should be seen sooner. BP well controlled with current regimen <130/80. BPH: With use of flomax, patient is getting up once at night to urinate. Has weak stream, but denies straining, incomplete emptying, dysuria, hematuria, incontinence. Followed up with ENT in [place] for chronic frontal sinusitis on CT/MRI going [...] delayed closure on 05/28/18. Dr. Obregon at [facility] COLONOSCOPY 10/10/2021 repeat in 3 years [...] by mouth once daily. blood sugar diagnostic (PhotoSolarTOUCH ULTRA TEST) test strip Test blood sugar(s) [...] Abs Lymph 1.00 - 4.00 k/uL 1.81 Cotton% % 6.9 Abs Cotton <0.87 k/uL 0.86 Eosin% % 3.1 Abs [...] arise. - Discussed diabetic education issues of senior living diabetic complications, hypoglycemic symptoms, hyperglycemic symptoms, diet, [...] reigmen. Abdulaziz Caldera MD documented in this encounterMercer County Community Hospital01-23-2023 Miscellaneous Notes* Telephone Encounter - Tamika [...] Mila Anne Castro LPN documented in this encounterMercer County Community Hospital01-23-2023 History of Present illness Narrative* Zachary [...] or electronic medical record. documented in this encounterMercer County Community Hospital01-17-2023 Miscellaneous Notes* Telephone Encounter - Melba [...] 2022. Rebecca Esteban LPN documented in this encounterMercer County Community Hospital01-13-2023 Miscellaneous Notes* Telephone Encounter - Meghana Burgess - 07/27/2022 9:55 AM EST [employer] message not read as of 07/27/2022. Called and spoke with patient. Appt rescheduled to 09/07/2022 at 11:00 AM Meghana Aditya * Telephone Encounter - Meghana Burgess - 07/05/2022 4:08 PM EST Due to change in provider's schedule, appt on 08/21/2022 needs rescheduled. Patient notified via [employer] message on 07/05/2022. Meghana Burgess documented in this encounterMercer County Community Hospital01-12-2023 Miscellaneous Notes* Telephone Encounter - Abdulaziz Caldera MD - 07/26/2022 3:09 PM EST Thanks. * Telephone Encounter - Ann Castillo RN - 07/26/2022 3:04 PM EST Darlyn, a nurse with [facility] calling to state she has discharged pt from shelter today. Pt is doing really well. No call back needed. Thank you. documented in this encounterMercer County Community Hospital01-11-2023 Miscellaneous Notes* Telephone Encounter - Suzanne Lino RN - 07/25/2022 1:42 PM EST Last Office Visit: 07/12/2022 Future Office Visit: 08/09/2022 Requested Prescriptions Pending Prescriptions Disp Refills amLODIPine (NORVASC) 2.5 mg tablet 30 tablet 5 Sig: Take 1 tablet by mouth once daily. Date of Last Labs: 03/02/2022 documented in this encounterMercer County Community Hospital01-03-2023 Miscellaneous Notes* Telephone Encounter - Abdulaziz Caldera MD - 07/17/2022 12:58 PM EST Reviewed and agree. * Telephone Encounter - Halima Diaz RN - 07/17/2022 12:51 PM EST Maverick PT calling from [facility] to report plan of care for patient and PT will visit patient 2 times a week for 3 weeks. PT will work with patient on functional mobility training. Halima Diaz RN documented in this [facility]01-03-2023 Miscellaneous Notes* Telephone Encounter - Abdulaziz Caldera MD - 07/17/2022 11:18 AM EST Reviewed. * Telephone Encounter - Eva Schmid LPN - 07/17/2022 11:12 AM EST Barbi from [facility] calling with OT plan of care, one time visit only, patient denies any further OT needs. No call back needed. documented in this [facility]12-30-2022 Miscellaneous Notes* Telephone Encounter - Ewa Andino Ma - 07/13/2022 11:30 AM EST Left detailed message on confidential line Ewa Andino Ma * Telephone Encounter - Abdulaziz Caldera MD - 07/13/2022 11:01 AM EST agree * Telephone Encounter - Ann Castillo RN - 07/13/2022 10:00 AM EST Chiki, a nurse with [facility] calling with Custodial Plan of Care for patient: Patient will be seen 1 time per week for 4 weeks for BP monitoring. No call back needed if provider agreeable. Thank you. documented in this encounterMercer County Community Hospital12-29-2022 Miscellaneous Notes* Telephone Encounter - Ewa Andino Ma - 07/12/2022 10:53 AM EST Karly was notified Ewa Andino Ma * Telephone Encounter - Abdulaziz Caldera MD - 07/12/2022 10:47 AM EST Agree and will follow * Telephone Encounter - Marcella Alvarez RN - 07/12/2022 10:07 AM EST Karly with [facility] called and reports Pt was discharged yesterday and they received a referral for PT/OT/SN. They are going to do their start of care tomorrow, and she was asking if the provider would be willing to follow. documented in this encounterMercer County Community Hospital12-26-2022 Miscellaneous Notes* Telephone Encounter - Suzanne Lino RN - 07/09/2022 11:46 AM EST Last Office Visit: 04/16/2022 Future Office Visit: 09/17/2022 Requested Prescriptions Pending Prescriptions Disp Refills dulaglutide (TRULICITY) 1.5 mg/0.5 mL pen injector 12 Each 3 Sig: Inject 1.5 mg subcutaneously one time a week. Inject once per week. Discard Pen After Date of Last Labs: 03/02/2022 documented in this encounterMercer County Community Hospital12-12-2022 Miscellaneous Notes* Telephone Encounter - Tania [...] patient. Tania Heller LPN documented in this encounterMercer County Community Hospital11-02-2022 Miscellaneous Notes* Telephone Encounter - Mila [...] you. Mila Castro LPN documented in this [facility]10-04-2022 History of Present illness Narrative* Jojo [...] evaluation of folllow up after hospitalization in [facility]. he was admitted because of [...] Since covid hit they went to [facility] [place] and was staying in the house by [...] delayed closure on 05/28/18. Dr. Obregon at [facility] COLONOSCOPY 10/10/2021 repeat in 3 years [...] week. Discard Pen After blood sugar diagnostic (7-bites ULTRA TEST) test strip Test blood sugar(s) [...] gait ,unsteady Cannot tandem Jojo Kaur M.D. [facility] Department of Neurology Total time in minutes [...] lights on at night. documented in this encounterMercer County Community Hospital10-04-2022 Miscellaneous Notes* Telephone Encounter - Abdulaziz Caldera MD - 04/17/2022 11:24 AM EDT Reviewed. * Telephone Encounter - MERYL Zamudio - 04/17/2022 11:03 AM EDT Behavioral Health Social Work Progress Note Patient identified for [facility] from: PCP Reason for referral: Resources Behavioral Health Resources: Psychology - talk therapy [facility] encounter type: Telephone Encounter Attempts to Outreach: 1 attempt Referral made: Psychology - External Psychology-External referral type: Therapy Reason for external referral: Wait times at [facility] too long Final Disposition: Resources given Patient Discharged?: Yes Patient reported that caregiver was able to meet their needs today?: Yes SW placed a phone call to patient at the request of the PCP. Pt reported he is looking for talk therapy referrals at this time. SW provided the following referrals via phone: [facility] [address], [facility] [address] *counseling [facility] [address] [place], [place] [id number] *counseling [facility] [address], [address] [place] [address] *counseling [facility] [address] [place] [address] FEDERICO Zamudio April 17, 2022 documented in this encounterMercer County Community Hospital10-03-2022 History of Present illness Narrative* Abdulaziz [...] delayed closure on 05/28/18. Dr. Obregon at [facility] COLONOSCOPY 10/10/2021 repeat in 3 years [...] week. Discard Pen After blood sugar diagnostic (FavbuyUCH ULTRA TEST) test strip Test blood sugar(s) [...] Abs Lymph 1.00 - 4.00 k/uL 1.81 Cotton% % 6.9 Abs Cotton <0.87 k/uL 0.86 Eosin% % 3.1 Abs [...] regimen. Abdulaziz Caldera MD documented in this encounterMercer County Community Hospital10-03-2022 Evaluation note* Diagnosis Type 2 diabetes [...] tract symptoms (LUTS) documented in this encounter [facility]09-23-2022 History of Present illness Narrative* Roselia Madrigal, MARYLU.APPLICATION SUPPORT TECHNICIAN - 04/06/2022 9:40 AM EDT 04/06/2022 [...] ONCE DAILY. FOR CHOLESTEROL. blood sugar diagnostic (FavbuyUCH ULTRA TEST) test strip Test blood sugar(s) [...] which included preparing to see the patient, [id number]-ib-yals patient care, completing clinical documentation, obtaining and/or reviewing separately obtained history, performing a medically appropriate examination, and counseling and educating the patient/family/caregiver. documented in this encounterMercer County Community Hospital09-21-2022 Miscellaneous Notes* Telephone Encounter - [...] AM EDT ----- Message from Roselia Madrigal APRN.APPLICATION SUPPORT TECHNICIAN sent at 04/03/2022 2:47 PM EDT ----- Please forward INR to doctor corporation officer Roselia Madrigal APRN.APPLICATION SUPPORT TECHNICIAN documented in this encounterMercer County Community Hospital09-16-2022 History of Present illness Narrative* Zachary [...] Care Merlene Martinez LPN documented in this encounterMercer County Community Hospital09-16-2022 Instructions* Patient Instructions* Zachary Obregon - [...] (or decreased sensation in your feet) a drum maker should always cut your toenails. Be Careful [...] Go to your health care provider or drum maker to treat these conditions. documented in this encounterMercer County Community Hospital09-09-2022 History of Present illness Narrative* [...] 01/12/22 through 03/15/22 Goals updated on 03/23/2022. [place] in home exercise program. (Met) Patient will [...] Rosa Elena Poon PT documented in this encounterMercer County Community Hospital09-08-2022 Miscellaneous Notes* Telephone Encounter - Maggy Nelson Ibarra Pss - 03/22/2022 1:49 PM EDT Pharmacy verified in [facility] Patient has been identified by [...] advise. Maggy Ibarra Pss documented in this encounterMercer County Community Hospital09-02-2022 History of Present illness Narrative* [...] 40 ALISIA Whiting PT documented in this encounterMercer County Community Hospital08-29-2022 History of Present illness Narrative* [...] THERAPY PHYSICAL THERAPY TREATMENT NOTE ASSESSMENT: Richard Ryo tolerated the session with fatigue. He demonstrated [...] Weber, ALISIA Poon PT documented in this encounterMercer County Community Hospital08-26-2022 Miscellaneous Notes* Addendum Note - Rosa Elena Poon PT - 03/09/2022 1:18 PM EDTAddended by: ROSA ELENA POON on: 03/09/2022 01:18 PM Modules accepted: Orders documented in this [facility]08-26-2022 History of Present illness Narrative* Rosa [...] 01/12/22 through 03/15/22 Goals updated on 03/09/2022. [place] in home exercise program. (Met) Patient will [...] Patient to be seen for Therapeutic exercise (10062);Neuromuscular re-education (09443);Gait Training (73546);Patient/Family/Caregiver Education PLAN FOR NEXT VISIT: Add bridging [...] Rosa Elena Poon PT documented in this encounterMercer County Community Hospital08-24-2022 Miscellaneous Notes* Telephone Encounter - [...] testing Madison Ma Cma documented in this encounterMercer County Community Hospital08-24-2022 Instructions* Patient Instructions* Abdulaziz Caldera MD - 03/07/2022 11:45 AM EDT Please take 2,000 units of vitamin D daily over the counter. documented in this encounterMercer County Community Hospital08-24-2022 History of Present illness Narrative* Abdulaziz Caldera MD - 03/07/2022 11:19 AM EDT Chief Complaint Patient presents with: 6 Month Exam ER F/U HPI Richard Roy is a 76 year old male who presents here today for ER Follow Up.. Patient evaluated at [facility] ED on 03/02 for complaint of [...] delayed closure on 05/28/18. Dr. Obregon at [facility] COLONOSCOPY 10/10/2021 repeat in 3 years [...] ONCE DAILY. FOR CHOLESTEROL. blood sugar diagnostic (7-bites ULTRA TEST) test strip Test blood sugar(s) [...] Abs Lymph 1.00 - 4.00 k/uL 1.81 Cotton% % 6.9 Abs Cotton <0.87 k/uL 0.86 Eosin% % 3.1 Abs [...] PANEL Abdulaziz Caldera MD documented in this encounterMercer County Community Hospital08-22-2022 History of Present illness Narrative* [...] Rosa Elena Poon PT documented in this encounterMercer County Community Hospital08-19-2022 History of Present illness Narrative* [...] Rosa Elena Poon PT documented in this encounterMercer County Community Hospital08-15-2022 History of Present illness Narrative* [...] Rosa Elena Lemon, PT documented in this encounterMercer County Community Hospital08-12-2022 History of Present illness Narrative* [...] Treatment Time Minutes (timed/untimed): 43 Karen Gus, IT SOFTWARE ENGINEER Rosa Elena Poon PT documented in this encounterMercer County Community Hospital08-03-2022 History of Present illness Narrative* [...] Rosa Elena Poon PT documented in this encounterMercer County Community Hospital07-29-2022 History of Present illness Narrative* [...] 01/12/22 through 03/15/22 Goals updated on 02/09/2022. [place] in home exercise program. (Met) Patient will [...] Patient to be seen for Therapeutic exercise (82004);Neuromuscular re-education (11204);Gait Training (65732);Patient/Family/Caregiver Education PLAN FOR NEXT VISIT: Continue to [...] Rosa Elena Poon PT documented in this encounterMercer County Community Hospital07-26-2022 Miscellaneous Notes* Telephone Encounter - [...] patient. Nola Gloria Pss documented in this encounterMercer County Community Hospital07-22-2022 History of Present illness Narrative* [...] PHYSICAL THERAPY TREATMENT NOTE ASSESSMENT: Richard Bonilla tSephon tolerated the session with no issues. He [...] 43 ALISIA Whiting PT documented in this encounterMercer County Community Hospital07-21-2022 Miscellaneous Notes* Telephone Encounter - [...] patient. Eulalia Sedinger [employer] documented in this encounterMercer County Community Hospital07-19-2022 History of Present illness Narrative* [...] Treatment Time Minutes (timed/untimed): 43 Karen Weber, IT SOFTWARE ENGINEER Justina Escoto, PT documented in this encounterMercer County Community Hospital07-12-2022 Miscellaneous Notes* Telephone Encounter - [...] you. Rebecca Gonzales RN documented in this encounterMercer County Community Hospital07-12-2022 History of Present illness Narrative* [...] 45 ALISIA Whiting PT documented in this encounterMercer County Community Hospital07-08-2022 Miscellaneous Notes* Telephone Encounter - [...] on driving. Please advise. documented in this encounterMercer County Community Hospital07-01-2022 History of Present illness Narrative* [...] of Care: created on 01/12/22 through 03/15/22 [place] in home exercise program. Patient will demonstrate [...] Planned: 16 Planned Treatment Interventions: Therapeutic exercise (74842);Neuromuscular re- education (51473);Gait Training (53035);Patient/Family/Caregiver Education PLAN FOR NEXT VISIT: Review HEP [...] Rosa Elena Poon PT documented in this encounterMercer County Community Hospital07-01-2022 Miscellaneous Notes* Telephone Encounter - [...] Pending consult. Please advise documented in this encounterMercer County Community Hospital06-29-2022 Miscellaneous Notes* Telephone Encounter - [...] his syncope/collapse. Thank you! documented in this encounterMercer County Community Hospital06-29-2022 Miscellaneous Notes* Result QuickNote - Justina Monique APRN.CNP - 01/10/2022 11:33 AM EDT Please call patient and notify him. Echocardiogram is stable. Valve replacement function is stable.No cardiac structure/function changes to explain his syncope/collapse. Thank you! documented in this encounterMercer County Community Hospital06-24-2022 History of Present illness Narrative* Jojo [...] medical record. REFERRING PHYSICIAN: Abdulaziz Caldera [address] [facility] [address] Accompanied by: Spouse ASSESSMENT: 76 year old [...] evaluation of folllow up after hospitalization in [facility]. he was admitted because of [...] Since covid hit they went to [place] and was staying in the house by [...] delayed closure on 05/28/18. Dr. Obregon at [facility] COLONOSCOPY 10/10/2021 repeat in 3 years [...] by mouth once daily. blood sugar diagnostic (7-bites ULTRA TEST) test strip Test blood sugar(s) [...] gait ,unsteady Cannot tandem Jojo Kaur M.D. [facility] Department of Neurology January 05, 2022 Total [...] lights on at night. documented in this encounterMercer County Community Hospital06-21-2022 Miscellaneous Notes* Telephone Encounter - Justina Garcia LPN - 01/02/2022 8:06 AM EDT I spoke to and informed him of Justina's response to lipid panel results. Patient voiced understanding. Justina Garcia LPN * Telephone Encounter - Justina Garcia LPN - 01/02/2022 7:43 AM EDT ----- Message from Justina Monique APRN.APPLICATION SUPPORT TECHNICIAN sent at 01/02/2022 7:38 AM EDT ----- Please call patient and notify him cholesterol has good control. Thank you! documented in this encounterMercer County Community Hospital06-20-2022 History of Present illness Narrative* Abdulaziz Caldera MD - 01/01/2022 10:20 AM EDT Chief Complaint Patient presents with: Hospital Follow Up: [facility] discharged 12/29/21 HPI Richard Roy is a 76 year old male who presents here today for Hospital Discharge Follow up. Accompanied today by his . Patient admitted to [facility] from 12/27 to 12/29 after presenting to [facility] ED after being found slumped over his tractor at home earlier in the afteernoon. Had been working outside for unknown period of time. Had only eaten cookies and milk that day. Heat index over 100. Back to baseline at the time of evaluation by hospitalist at [facility]. Found to have leukocytosis at [place] [facility] and elevated lactic acid level. Noted [...] echo since it was not completed at [facility]. No other changes to regimen. Patient [...] delayed closure on 05/28/18. Dr. Obregon at [facility] COLONOSCOPY 10/10/2021 repeat in 3 years [...] by mouth once daily. blood sugar diagnostic (PhotoSolarTOUCH ULTRA TEST) test strip Test blood sugar(s) [...] SCRN Abdulaziz Caldera MD documented in this encounterMercer County Community Hospital06-20-2022 Instructions* Patient Instructions* Justina Monique APRN.APPLICATION SUPPORT TECHNICIAN - 01/01/2022 9:05 AM EDT High [...] risk for high blood pressure. Developed by [employer]. Published by [employer]. Copyright 2014 [employer] and/or one of its subsidiaries. All rights reserved. documented in this encounterMercer County Community Hospital06-20-2022 History of Present illness Narrative* [...] bothexplain to me he was hospitalized at [facility] for 2 days last week for syncope/collapse. [...] LE swelling. Records have been requested from [facility]. He is unsure of what testing was completed. An echocardiogram was ordered at his last office visit with me.If this was not completed at [facility], I recommend this be completed for further [...] delayed closure on 05/28/18. Dr. Obregon at [facility] COLONOSCOPY 10/10/2021 repeat in 3 years [...] daily. 90 tablet 3 blood sugar diagnostic (FavbuyUCH ULTRA TEST) test strip Test blood sugar(s) [...] injection (DEFINITY) INTRAVENOUS DIRECTED PRN Justina Monique, CONVEYOR BELT OPERATOR.APPLICATION SUPPORT TECHNICIAN sodium chloride 0.9 % (flush) 10 mL (BD POSIFLUSH) 10 mL INTRAVENOUS DIRECTED PRN Justina Monique, CONVEYOR BELT OPERATOR.APPLICATION SUPPORT TECHNICIAN Review of Systems Constitutional: Negative for [...] MRI of his head CAD -MILD on [facility] 2004 -stress testing 2013 with no [...] 01, 2022, 8:57 AM documented in this encounterMercer County Community Hospital06-19-2022 Note. MICRO - Microbiology PROCEDURE: Blood Culture (bacterial) [*1] SOURCE: Blood BODY SITE: COLLECTED DATE/TIME: 12/27/2021 17:43 EDT RECEIVED DATE/TIME: 12/28/2021 14:37 EDT START DATE/TIME: 12/28/2021 14:37 EDT FREE TEXT SOURCE: FINAL REPORTS Final Report [] Verified Date/Time/Personnel: 12/31/2021 07:29 EDT Staphylococcus epidermidis Isolated from anaerobe bottle only. Refer to previous culture for susceptibility. [id number] PRELIMINARY REPORTS Preliminary Report [] Verified Date/Time/Personnel: 12/30/2021 09:39 EDT Staphylococcus epidermidis Isolated from anaerobe bottle only. Refer to previous culture for susceptibility. [id number] Preliminary Report [] Verified Date/Time/Personnel: 12/28/2021 15:59 EDT Culture has been received in lab and is no growth to date. Routine cultures are held for 5 days. STAINS GSANA [] Verified Date/Time/Personnel: 12/29/2021 14:08 EDT Gram Positive Cocci in clusters Performing Locations *1: This test was performed at: [address], [address]- , [facility] ([place])12-31-2021 Note. MICRO - Microbiology PROCEDURE: Blood Culture [...] Locations *1: This test was performed at: [address], [address]- , [facility] ([place])12-27-2021 SARS-CoV-2 (COVID-19) RNA ANGELY+probe Ql (Nph)Positive 2 *ABN* (12/27/21 5:43 PM)AO Auto Urine SSComment on above:Result Comment: positive covid olga ruthr Evaluation + Plan note Diagnostic Tests Pending * Urinalysis 12/27/21 * Blood Culture (bacterial) 12/27/21 * Blood Culture (bacterial) 12/27/21 [facility] 06-02-2022 History of Present illness Narrative* Abdulaziz Caldera MD - 12/14/2021 3:13 PM EDT Chief Complaint Patient presents with: Covid Follow Up HPI Richard Roy is a 76 year old male who presents here today for Above Complaints.. Patient positive for COVID in the [facility] ER last week on 12/06. Spoke [...] 05/25/2018 with delayed closure on 05/28/18. Dr. Obergon at [facility] COLONOSCOPY 10/10/2021 repeat in 3 years [...] detail. Abdulaziz Caldera MD documented in this encounterMer[facility]05-27-[facility]22 History of Present illness Narrative* [...] today for Above Complaints.. Patient evaluated at [facility] ER on 12/06 for complaint of generalized weakness, cough, and feeling off balance and developed cough which started on 12/04. Denied other COVID symptoms at that time. Lab workup in the ER was unremarkable aside from positive COVID test and INR of 3.3. UA unremarkable. CXR showed some ill defined densities in RLL which was likely 2/2 COVID infection. [place] to be well enough and discharged home [...] delayed closure on 05/28/18. Dr. Obregon at [facility] COLONOSCOPY 10/10/2021 repeat in 3 years [...] by mouth once daily. blood sugar diagnostic (FavbuyUCH ULTRA TEST) test strip Test blood sugar(s) [...] these interactions. [facility] [place] [facility] Since his symptoms are mild, he would prefer to rest at home. Discussed risks and benefits of treatment and that he is high risk for severe infection. Red flags for re-assessment reviewed with patient in detail. I spent a total of 25 minutes on the date of the service which included preparing to see the patient, [id number] patient care, completing clinical documentation, obtaining and/or reviewing separately obtained history, performing a medically appropriate examination, counseling and educating the pat ient/family/caregiver and ordering medications, tests, or procedures. Abdulaziz Caldera MD documented in this encounterMercer [facility]05-27-2022 Miscellaneous Notes* Telephone Encounter - [...] with one of our providers or with [facility] online. * Telephone Encounter - Rosa Elena Velasco - 12/08/2021 2:16 PM EDT Patient called stating he was at [facility] ER on 12/06. Tested positive for covid. Patient was informed tocontact the office within 5 days to inform. Please advise patient when he can be seen in office. documented in this encounterMercer County [facility] Hospital05-09-2022 Miscellaneous Notes* Telephone Encounter - Eulalia Gasotn [facility] [place] - 11/20/2021 9:49 AM EDT Patient has been identified by name and date of : Yes Pending Prescriptions Disp Refills METFORMIN ER 500 MG 24 HR TABLET,EXTENDED RELEASE Sig: Take 1 tablet by mouth daily with breakfast. NUHA: No OMAR-09/06/21 Labs-08/30/21 NOV-03/07/22 RX INSTRUCTIONS: Patient aware RX will be sent to pharmacy. No need to notify patient. Eulalia Gaston [facility] documented in this encounterMercer County Community Hospital04-11-2022 Instructions* Patient Instructions* Marcella Park PA-C - 10/23/2021 1:25 PM EDT -Recommend daily fiber supplement and plenty of fluids The following instructions are important for you related to your office visit today with the [facility] General Surgeons. INSTRUCTIONS FOR DIVERTICULA [...] you should contact our office immediately @ [phone] and ask to be transferred to the General Surgery department. The following instructions are important for you related to your office visit today with the [facility] General Surgeons. INSTRUCTIONS FOLLOWING A [...] you should contact our office immediately @ [phone] and ask to be transferred to the General Surgery department. documented in this encounterMercer County Community Hospital04-11-2022 History of Present illness Narrative* Marcella Park PA-C - 10/23/2021 1:09 PM EDT FOLLOW UP VISIT - ENDOSCOPY NAME: Richard Bonilla [facility] NO.: [id number] DATE OF SERVICE: 10/23/2021 : 1945 REFERRING [...] which included preparing to see the patient, [id number] patient care, completing clinical documentation, obtaining and/or reviewing separately obtained history, counseling and educating the patient/family/caregiver, communicating with other HCPs (not separately reported), independently interpreting results (not separately reported) and communicating results to the patient/family/caregiver. Marcella Park PA-C documented in this encounterMercer County Community Hospital03-29-2022 Nurse Note* Caroline Larkin RN [...] answered. Caroline Larkin RN documented in this encounterMercer County Community Hospital03-29-2022 History and physical note * [...] delayed closure on 05/28/18. Dr. Obregon at [facility] COLONOSCOPY FLX DX W/COLLJ SPEC WHEN [...] by mouth once daily. blood sugar diagnostic (7-bites ULTRA TEST) test strip Test blood sugar(s) [...] entered by the nurse and reviewed by mn Nursing Notes: Cortney Starr LPN 08/16/2021 8:38 [...] patient was offered a surgery/procedure [facility]. 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 Patient aware RX will be sent to pharmacy. No need to notify patient. Violette Call [facility] documented in this encounterMercer County Community Hospital03-23-2022 Miscellaneous Notes* Telephone Encounter - [...] advise, Halima Diaz RN documented in this encounterMercer County Community Hospital02-02-2022 Miscellaneous Notes* Telephone Encounter - Garland Vicente - 08/16/2021 9:36 AM EST 10-10-2021 [facility] documented in this encounterMercer County Community Hospital01-13-2022 NoteHNO ID: [id number] Author: REY Burt Service: Radiology Author Type: Ruffling Machine Operator Type: Progress Notes Filed: 07/27/2021 10:50 [...] Roy DATE: July 27, 2021 TIME: 10:49 [id number] History of Past illness Narrative* Problem Noted [...] of this encounter (statuses as of 10/04/2021) [facility] of Past illness Narrative* [...] of this encounter (statuses as of 10/05/2021) [facility] Narrative* [...] of this encounter (statuses as of 10/11/2021) [facility] Narrative* [...] of this encounter (statuses as of 10/16/2021) [facility] Narrative* [...] of this encounter (statuses as of 10/27/2021) [facility] Narrative* [...] of this encounter (statuses as of 11/20/2021) [facility] Narrative* [...] of this encounter (statuses as of 12/12/2021) [facility] Narrative* [...] of this encounter (statuses as of 12/13/2021) [facility] Narrative* [...] of this encounter (statuses as of 12/14/2021) [facility] Narrative* [...] of this encounter (statuses as of 01/01/2022) [facility] Narrative* [...] of this encounter (statuses as of 01/02/2022) [facility] Narrative* [...] of this encounter (statuses as of 01/02/2022) [facility] Narrative* [...] of this encounter (statuses as of 01/06/2022) [facility] Narrative* [...] of this encounter (statuses as of 01/10/2022) [facility] Narrative* [...] of this encounter (statuses as of 01/11/2022) [facility] Narrative* [...] of this encounter (statuses as of 01/12/2022) [facility] Narrative* [...] of this encounter (statuses as of 01/12/2022) [facility] Narrative* [...] of this encounter (statuses as of 01/19/2022) [facility] Narrative* [...] of this encounter (statuses as of 01/23/2022) [facility] Narrative* [...] of this encounter (statuses as of 01/25/2022) [facility] Narrative* [...] of this encounter (statuses as of 01/30/2022) [facility] Narrative* [...] of this encounter (statuses as of 02/01/2022) [facility] Narrative* [...] of this encounter (statuses as of 02/02/2022) [facility] Narrative* [...] of this encounter (statuses as of 02/02/2022) [facility] Narr[facility]* [...] of this encounter (statuses as of 02/06/2022) [facility] Narrative* [...] of this encounter (statuses as of 02/09/2022) [facility]* [...] of this encounter (statuses as of 02/14/2022) [facility]* [...] of this encounter (statuses as of 02/26/2022) [facility]* [...] of this encounter (statuses as of 03/02/2022) [facility]* [...] of this encounter (statuses as of 03/05/2022) [facility]* [...] of this encounter (statuses as of 03/07/2022) [facility]* [...] of this encounter (statuses as of 03/08/2022) [facility]* [...] of this encounter (statuses as of 03/09/2022) [facility]* [...] of this encounter (statuses as of 03/12/2022) [facility]arr[facility]* [...] of this encounter (statuses as of 03/16/2022) [facility]* [...] of this encounter (statuses as of 03/23/2022) [facility]* [...] of this encounter (statuses as of 04/03/2022) [facility]* [...] of this encounter (statuses as of 04/04/2022) [facility]* [...] of this encounter (statuses as of 04/06/2022) [facility]arr[facility]* [...] of this encounter (statuses as of 04/17/2022) [facility]* [...] of this encounter (statuses as of 04/17/2022) [place] [id number] History of Past illness Narrative* Problem Noted [...] of this encounter (statuses as of 04/19/2022) [facility]* [...] of this encounter (statuses as of 05/16/2022) [facility]* [...] of this encounter (statuses as of 06/25/2022) [facility]* [...] of this encounter (statuses as of 07/14/2022) [facility]* [...] of this encounter (statuses as of 07/15/2022) [facility]* [...] of this encounter (statuses as of 07/18/2022) [facility]* [...] of this encounter (statuses as of 07/18/2022) [facility]* [...] of this encounter (statuses as of 07/19/2022) [facility]* [...] of this encounter (statuses as of 07/20/2022) [facility]* [...] of this encounter (statuses as of 07/25/2022) [facility]* [...] of this encounter (statuses as of 07/26/2022) [facility]* [...] of this encounter (statuses as of 07/27/2022) [facility]* [...] of this encounter (statuses as of 07/31/2022) [facility]* [...] of this encounter (statuses as of 08/06/2022) [facility]* [...] of this encounter (statuses as of 08/07/2022) [facility]* [...] of this encounter (statuses as of 08/09/2022) [facility]* [...] of this encounter (statuses as of 08/14/2022) [facility]* [...] of this encounter (statuses as of 08/16/2022) [facility]* [...] of this encounter (statuses as of 08/28/2022) [facility]* [...] of this encounter (statuses as of 09/07/2022) [facility]* [...] of this encounter (statuses as of 09/09/2022) [facility]* [...] of this encounter (statuses as of 09/25/2022) [facility]* [...] of this encounter (statuses as of 10/23/2022) [facility]* [...] of this encounter (statuses as of 11/20/2022) [facility]* [...] of this encounter (statuses as of 11/20/2022) [facility]* [...] of this encounter (statuses as of 12/13/2022) [facility]* [...] of this encounter (statuses as of 12/14/2022) [facility]* [...] of this encounter (statuses as of 12/18/2022) [facility]* [...] of this encounter (statuses as of 12/25/2022) [facility]* [...] of this encounter (statuses as of 12/27/2022) [facility]* [...] of this encounter (statuses as of 12/31/2022) [facility]* [...] of this encounter (statuses as of 01/03/2023) [facility]* [...] of this encounter (statuses as of 01/04/2023) [facility]* [...] of this encounter (statuses as of 01/04/2023) [facility]* [...] of this encounter (statuses as of 01/25/2023) [facility]* [...] of this encounter (statuses as of 01/29/2023) [facility] note* Diagnosis Type 2 diabetes mellitus with diabetic neuropathy, with long-term current use of insulin (HCC) Status post aortic valve repair Other postprocedural status Chronic anticoagulation Long-term (current) use of anticoagulants documented in this encounter [facility]* Diagnosis Colon cancer screening Special screening for malignant neoplasms, colon documented in this encounter [facility] note* Diagnosis Colon cancer screening- Primary Special screening for malignant neoplasms, colon documented in this encounter [facility] note* Diagnosis Diverticulosis- Primary Diverticulosis of colon (without mention of hemorrhage) Cecal polyp documented in this encounter [facility] noteNo assessment information availableWSt. [facility] Work Phone: Evaluation note* Diagnosis COVID-19- Primary documented in this encounter [facility] note* Diagnosis COVID-19- Primary documented in this encounter [facility] note* Diagnosis Onset Date Resolution Status Acute dehydration acute ANTHONY (acute kidney injury) ac [place] Heat exhaustion acute Hyperkalemia acute Lactic acidosis acute Leukocytosis acute [facility] Work Phone: Evaluation note* Diagnosis Hyperlipidemia with target LDL less than 100- Primary Other and unspecified hyperlipidemia Primary hypertension Unspecified essential hypertension Thoracic aortic aneurysm without rupture (HCC) Thoracic aneurysm without mention of rupture Coronary artery disease involving [place] coronary artery of [place] heart without angina pectoris Syncope, unspecified syncope type Obesity, Class II, BMI 35-39.9 Obesity, unspecified documented in this encounter [facility] note* Diagnosis Syncope and collapse- Primary Altered mental status, unspecified altered mental status type Urinary incontinence, unspecified type Benign prostatic hyperplasia with nocturia Nocturia Vitamin D deficiency, unspecified Wound of left lower extremity, initial encounter Encounter for screening for malignant neoplasm of prostate Special screening for malignant neoplasm of prostate documented in this encounter [facility] note* Diagnosis Abnormality of gait due to impairment of balance- Primary Altered mental status, unspecified altered mental status type [facility] Chronic anticoagulation Long-term (current) use of anticoagulants Thoracic aortic aneurysm without rupture (HCC) Thoracic aneurysm without mention of rupture Status post aortic valve repair Other postprocedural status [facility] Diagnosis Type 2 diabetes mellitus with diabetic neuropathy, with long-term current use of insulin (HCC)- Primary [facility]* Diagnosis Abnormality of gait due to impairment of balance- Primary [facility]* Diagnosis Abnormality of gait due to impairment of balance- Primary [facility]* Diagnosis Vitamin D deficiency Unspecified vitamin D deficiency [facility]* Diagnosis Abnormality of gait due to impairment of balance- Primary [facility]* Diagnosis Vitamin D deficiency Unspecified vitamin D deficiency [facility]* Diagnosis Type 2 diabetes mellitus with stage 3 chronic kidney disease, with long-term current use of insulin ([facility]) [facility]* Diagnosis Abnormality of gait due to impairment of balance- Primary [facility]* Diagnosis Type 2 diabetes mellitus with diabetic neuropathy, with long-term current use of insulin ([facility]) [facility]* Diagnosis Abnormality of gait due to impairment of balance- Primary [facility]* Diagnosis Abnormality of gait due to impairment of balance- Primary [facility]* Diagnosis Onset Date Resolution Status Acute dehydration resolved Heat exhaustion resolved [facility] Work Phone: Evaluation note* Diagnosis Abnormality of gait due to impairment of balance- Primary [facility] this encounter [facility]* Diagnosis Status post aortic valve repair Other postprocedural status Chronic anticoagulation Long-term (current) use of anticoagulants [facility]* Diagnosis Generalized weakness- Primary Other malaise and fatigue Supratherapeutic INR Abnormal coagulation profile ANTHONY (acute kidney injury) (HCC) Acute kidney failure, unspecified documented [facility] this encounter [facility]* Diagnosis Abnormality of gait due to impairment of balance- Primary documented [facility] this [facility]* Diagnosis Abnormality of gait due to impairment of balance- Primary [facility]* Diagnosis Urinary incontinence, unspecified type [facility]* Diagnosis Abnormality of gait due to impairment of balance- Primary [facility]* Diagnosis Onychomycosis- Primary Dermatophytosis of nail Pain in toe of left foot Pain in limb Amputated toe of right foot (HCC) Diabetic polyneuropathy associated with type 2 diabetes mellitus ([facility]) [facility]* Diagnosis Generalized weakness- Primary Other malaise and fatigue Encounter for immunization Need for other specified prophylactic vaccination against single bacterial disease Mild depression Depressive disorder, not elsewhere classified [facility] encounter [facility]* Diagnosis Generalized anxiety disorder- Primary Polyneuropathy Unspecified hereditary and idiopathic peripheral neuropathy [facility] this [facility]* Diagnosis Urinary incontinence, unspecified type [facility]* Diagnosis Onset Date Resolution Status History of pulmonary embolism acute History of thoracic aortic aneurysm repair acute NSTEMI, initial episode of care acute HTN (hypertension) [facility] Work Phone: Evaluation note* Diagnosis Dizziness- Primary Dizziness and giddiness Chronic frontal sinusitis documented [facility] encounter [facility]* Diagnosis Type 2 diabetes mellitus with [...] [facility]* Diagnosis Driving safety issue- Primary Other specified personal history presenting hazards to health documented [facility] this encounter [facility]* Diagnosis Onychomycosis- Primary Dermatophytosis of nail Pain in toe of left foot Pain in limb Amputated toe of right foot (HCC) Diabetic polyneuropathy associated with type 2 diabetes mellitus (HCC) documented [facility] this encounter [facility] note* Diagnosis Spinal stenosis, lumbar region, without neurogenic claudication- Primary Primary osteoarthritis of both knees Primary localized osteoarthrosis, [facility]* Diagnosis Spinal stenosis, lumbar region, without neurogenic claudication- Primary Primary osteoarthritis of both knees Primary localized osteoarthrosis, lower leg [facility]* Diagnosis Spinal stenosis, lumbar region, without neurogenic claudication- Primary Primary osteoarthritis of both knees Primary localized osteoarthrosis, lower leg documented [facility]* Diagnosis Spinal stenosis, lumbar region, without neurogenic claudication- Primary Primary osteoarthritis of both knees Primary localized osteoarthrosis, lower leg documented [facility]* Diagnosis Spinal stenosis, lumbar region, without neurogenic claudication- Primary Primary osteoarthritis of both knees Primary localized osteoarthrosis, lower leg documented [facility]* Diagnosis Spinal stenosis, lumbar region, without neurogenic claudication- Primary Primary osteoarthritis of both knees Primary localized osteoarthrosis, lower leg documented [facility] this [facility]* Diagnosis Onset Date Resolution Status Confusion acute Weakness acute [facility] Work Phone: Evaluation note* Diagnosis Onset Date Resolution Status Confusion acute Weakness acute ABLA (acute blood loss anemia) acute Acute encephalopathy acute Supratherapeutic INR acute Syncope acute Upper gastrointestinal bleeding acute Warfarin-induced coagulopathy acute [facility] Work Phone: Evaluation note* Diagnosis Onset [...] acute Warfarin-induced coagulopathy acute HTN (hypertension) chronic [facility] Work Phone: Evaluation note* Diagnosis Onset [...] type II acute Sick sinus syndrome acute [facility] Work Phone: Evaluation note* Diagnosis Onset [...] (INR) acute UTI (urinary tract infection) acute [facility] Work Phone: Evaluation note* Diagnosis Onset [...] UTI (urinary tract infection) acute Weakness acute [facility] Work Phone: Evaluation note* Diagnosis Onset [...] Second degree AV block, Mobitz type II [facility] Work Phone: Evaluation note* Diagnosis Onset [...] Second degree AV block, Mobitz type II [facility] Work Phone: Evaluation note* Diagnosis Onset [...] Second degree AV block, Mobitz type II [facility] Work Phone: Evaluation note* Diagnosis Onset Date Resolution Status Presence of cardiac pacemaker acute Syncope acute Second degree AV block, Mobitz type II chronic Sick sinus syndrome chronic Atrial fibrillation acute HLD (hyperlipidemia) acute Presence of cardiac pacemaker acute HTN (hypertension) chronic Second degree AV block, Mobitz type II [facility] Work Phone: Evaluation note* Diagnosis Onset Date Resolution Status Atrial fibrillation acute HLD (hyperlipidemia) acute Presence of cardiac pacemaker acute HTN (hypertension) chronic Second degree AV block, Mobitz type II [facility] Work Phone: History and physical note Author Dr. Aly [facility] January 04, 2023 4:32pm Note Date/Time January 04, 2023 4:[address] [facility] Medical Records Department [address] [place] [id number] H&P Exam - Hospitalist 01/04/23 1607 MR#: [id number] Acct: [id number] Name: RICHARD ROY Rep #:[id number] : 1945 77 From: Karen Aly MD PCP: Dr. Luis Caldera MD Status :ADM LUIS ANGEL Location: [place] [address] HPI - General General Date of Admission: 01/04/23 Date of Service: 01/04/23 Chief Complaint: Confusion, falls. HPI Narrative The patient is a 77 y/o M w/ PMHx: AAA s/p repair, Hx COVID-19, Hx GI bleed, Valvular heart disease s/p AVR, HTN, HLD, VTE w/ Hx DVT/PE, Diabetes mellitus type II, Obesity who presents to the [facility] ED on 01/04/23 with history of [...] no acute intracranial abnormality, right maxillary sinusitis. [facility] Medical History Amputation of right great [...] 78.3 H, Lymph % (Auto) 12.8 L, Cotton % (Auto) 5.9, Eos % (Auto) 1.7, [...] Sl. Cloudy, Urine pH 6.0, Ur Specific [place] 1.020, Urine Protein 15 H, Urine Glucose [...] type II, Obesity who presents to the [facility] ED on 01/04/23 with history of [...] 60 minutes. Charges/Coding Visit Charges Inpatient E&M: 01714 Init Hosp L2 01/04/23 1632 <Electronically signed by Karen Aly MD> Cosigner Signature (if applicable): CC: Dr. Karen Aly MD; Dr. Luis Caldera MD~ Signed [facility] Work Phone: Hospital course Narrative No data available for this section [facility] Discharge instructions No data available for this section [facility] Discharge instructions Additional Instructions Work-up revealed [...] days of antibiotics [facility] Work Phone: Progress note No data available for this section [facility] note Author Liu Hackett [facility] January 26, 2023 3:50pm Note Date/Time January 26, 2023 3:[address] [facility] Medical Records Department [address] [place] [id number] Progress Note - GI 01/26/23 1549 MR#: [id number] Acct: [id number] Name: RICHARD ROY Rep #:[id number] : 1945 77 From: Liu Hackett DO PCP: Dr. Luis Caldera MD Status :ADM IN Location: [place] [address] Subjective Subjective Patient is doing well today. [...] 78.4 H, Lymph % (Auto) 8.1 L, Cotton % (Auto) 9.6, Eos % (Auto) 1.6, [...] Heart rate in 50s.. Discussed with the employment legal assistant. No chest pain or tightness. Physical exam [...] ensure healing. Charges/Coding Visit Charges Inpatient E&M: 51051 Subs Hosp L3 01/26/23 1550 <Electronically signed by Liu Hackett DO> Cosigner Signature (if applicable): CC: ~ Signed [facility] Work Phone: Progress note Author Smith Leija [facility] February 13, 2023 3:58pm Note Date/Time February 13, 2023 3:5 8pm [facility] Medical Records Department [address] [place] [address] Progress Note - Infect Disease 02/13/23 1557 MR#: [id number] Acct: [id number] Name: RICHARD ROY Rep #:[id number] : 1945 77 From: Smith huang MD PCP: Dr. Luis Caldera MD Status :ADM IN Location: [place] [address] Physical Exam Narrative Feeling better, no fever, [...] Cosigner Signature (if applicable): CC: ~ Signed [facility] Work Phone: Reason for referral (narrative)* Outpatient Procedure (Routine) - Closed Specialty Diagnoses / Procedures Referred By Linn t Referred To Contact [facility] Diagnoses Colon cancer screening Procedures COLONOSCOPY SCREENING COLONOSCOPY FLX DX W/COLLJ SPEC WHEN PFRMD Marcella Park PA-C [address] [place] [address] [facility] [address] [address] Referral ID Status Reason Start Date Expiration Date V isits Requested Visits Authorized [id number] Closed Auto-Generate d Referral 08/16/2021 08/16/2022 1 1 [facility] for referral (narrative)* Outpatient Procedure (Routine) - Closed Specialty Diagnoses / Procedures Referred By Contac t Referred To Contact [facility] Diagnoses Colon cancer screening Procedures COLONOSCOPY SCREENING COLONOSCOPY FLX DX W/COLLJ SPEC WHEN PFMarcella Cho PA-C [address] [place] [address] [facility] Disease [address] [address] Referral ID Status Reason Start Date Expiration Date V isits Requested Visits Authorized [id number] Closed Auto-Generate d Referral 08/16/2021 08/16/2022 1 1 [facility] for referral (narrative)No reason for referral [facility] Work Phone: Reason for visit Narrative* Outpatient Procedure (Routine) - Closed Specialty Diagnoses / Procedures Referred By Contac t Referred To Contact [facility] Diagnoses Colon cancer screening Procedures COLONOSCOPY SCREENING COLONOSCOPY FLX DX W/COLLJ SPEC WHEN Marcella Alatorre PA-C [address] [place] [address] [facility] Disease [address] [address] Referral ID Status Reason Start Date Expiration Date V isits Requested Visits Authorized [id number] Closed Auto-Generate d Referral 08/16/2021 08/16/2022 1 1 [facility] for visit Narrative* Outpatient Procedure (Routine) - Closed Specialty Diagnoses / Procedures Referred By Contac t Ref[facility] Diagnoses Chronic anticoagulation Thoracic aortic aneurysm without rupture (HCC) Status post aortic valve repair Procedures ECHO TTE W/DOPPLER, Justina Arguelles, CONVEYOR BELT OPERATOR.APPLICATION SUPPORT TECHNICIAN [address] [place] [address] [facility] [place] [place] [address] Referral ID Status Reason Start Date Expiration Date V isits Requested Visits Authorized [id number] Closed Auto-Generate d Referral 07/03/2021 07/03/2022 1 1 [facility] Advance Directives No Advanced Directives Records FoundDocuments on File Type Date Recorded 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 Advance Directive(s) 09/12/2021 7:14 AM Documents on File Type Date Recorded 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 Advance Directive(s) 09/12/2021 7:14 AM Advance Directive Response Recorded Date/ Time Advance Directives Yes September 16 11:11pm Living Will No December 06, 2021 1 1:07pm Power of Grocery Store Courtesy Clerk No December 06, 2021 11:07pm Advance Directive Response Recorded Date/ Time Name of Medical Power of Grocery Store Courtesy Clerk Aníbal Roy December 27, 2021 10:36pm Advance Directives Yes September 16 11:11pm Living Will Yes December 27, 2021 10:36pm Power of Grocery Store Courtesy Clerk Yes December 27 10:36pm Advance Directive Response Recorded Date/ Time Name of Medical Power of Grocery Store Courtesy Clerk Aníbal Roy December 27, 2021 10:36pm Name of Medical Power of Grocery Store Courtesy Clerk TEDDY ROY (SON ) March 02, 2022 2:34pm Advance Directives Yes September 16 11:11pm Living Will Yes March 02 2:34pm Power of Grocery Store Courtesy Clerk Yes March 02, 022 2:34pm Advance Directive Response Recorded Date/ Time Name of Medical Power of Grocery Store Courtesy Clerk teddy roy July 10, 2022 3:06am Advance Directives Yes September 16 10:11pm Living Will Yes July 10, 022 3:06am Power of Grocery Store Courtesy Clerk Yes July 10, 2022 3:06am Advance Directive Response Recorded Date/ Time Name of Medical Power of Grocery Store Courtesy Clerk ? January 04, 2023 11:15am Advance Directives Yes September 16 11:11pm Living Will Yes January 04, 2023 11:15am Power of Grocery Store Courtesy Clerk Yes January 04 11:15am Advance Directive Response Recorded Date/ Time Name of Medical Power of Grocery Store Courtesy Clerk Ciarra Roy (spouse), Teddy Roy (son) January 04, 2023 6:23pm Name of Medical Power of Grocery Store Courtesy Clerk ANÍBAL ROY January 21, 2023 8:26am Advance Directives Yes September 16 11:11pm Living Will Yes January 21, 2023 8:26am Power of Grocery Store Courtesy Clerk Yes January 21 8:26am Advance Directive Response Recorded Date/ Time Name of Medical Power of Grocery Store Courtesy Clerk Ciarra Roy (spouse), Teddy Roy (son) January 04, 2023 6:23pm Name of Medical Power of Grocery Store Courtesy Clerk Ciarra Roy January 21, 2023 12:23pm Advance Directives Yes September 16 11:11pm Living Will Yes January 21, 2023 12:23pm Power of Grocery Store Courtesy Clerk Yes January 21 12:23pm Advance Directive Response Recorded Date/ Time Name of Medical Power of Grocery Store Courtesy Clerk Ciarra Roy (spouse), Teddy Roy (son) January 04, 2023 6:23pm Name of Medical Power of Grocery Store Courtesy Clerk Ciarra Roy (spouse) January 27, 2023 6:04pm Advance Directives Yes September 16 11:11pm Living Will Yes January 27, 2023 6:04pm Power of Grocery Store Courtesy Clerk Yes January 27 6:04pm Name of Medical Power of Grocery Store Courtesy Clerk Ciarra Roy January 21, 2023 12:23pm Advance Directive Response Recorded Date/ Time Name of Medical Power of Grocery Store Courtesy Clerk Ciarra Roy (spouse), Teddy Roy (son) January 04, 2023 6:23pm Name of Medical Power of Grocery Store Courtesy Clerk Ciarra Regant January 27, 2023 9:40pm Name of Medical Power of Grocery Store Courtesy Clerk Ciarra Horse, February 10, 2023 9:27pm Advance Directives Yes September 16 11:11pm Living Will Yes February 10, 2023 9:27pm Power of Grocery Store Courtesy Clerk Yes February 10 9:27pm Name of Medical Power of Grocery Store Courtesy Clerk Ciarra Regant January 21, 2023 12:23pm Advance Directive Response Recorded Date/ Time Name of Medical Power of Grocery Store Courtesy Clerk Ciarra Roy (spouse), Teddy Roy (son) January 04, 2023 6:23pm Name of Medical Power of Grocery Store Courtesy Clerk Ciarra Regant January 27, 2023 9:40pm Name of Medical Power of Grocery Store Courtesy Clerk Ciarra Robison, February 10, 2023 9:27pm Name of Medical Power of Grocery Store Courtesy Clerk Ciarra MEEKS, February 11, 2023 4:25pm Advance Directives Yes September 16 11:11pm Living Will Yes February 11, 2023 4:25pm Power of Grocery Store Courtesy Clerk Yes February 11 4:25pm Name of Medical Power of Grocery Store Courtesy Clerk Ciarra Stephon January 21, 2023 12:23pm Advance Directive Response Recorded Date/ Time Name of Medical Power of Grocery Store Courtesy Clerk Ciarra Roy (spouse), Teddy Roy (son) January 04, 2023 6:23pm Name of Medical Power of Grocery Store Courtesy Clerk Ciarra Regant January 27, 2023 9:40pm Name of Medical Power of Grocery Store Courtesy Clerk Ciarra Robison, February 10, 2023 9:27pm Name of Medical Power of Grocery Store Courtesy Clerk Ciarra MEEKS, February 11, 2023 8:40pm Advance Directives Yes September 16 11:11pm Living Will Yes February 11, 2023 8:40pm Power of Grocery Store Courtesy Clerk Yes February 11 8:40pm Name of Medical Power of Grocery Store Courtesy Clerk Ciarra Regant January 21, 2023 12:23pm Advance Directive Response Recorded Date/ Time Name of Medical Power of Grocery Store Courtesy Clerk Ciarra Roy January 27, 2023 9:40pm Name of Medical Power of Grocery Store Courtesy Clerk Ciarra Robison, February 10, 2023 9:27pm Name of Medical Power of Grocery Store Courtesy Clerk JEANNA Ciarra, w david February 11, 2023 8:40pm Advance Directives Yes September 16 11:11pm Living Will Yes February 11, 2023 8:40pm Power of Grocery Store Courtesy Clerk Yes February 11 8:40pm Name of Medical Power of Grocery Store Courtesy Clerk Ciarra Roy January 21, 2023 12:23pm Advance Directive Response Recorded Date/ Time Name of Medical Power of Grocery Store Courtesy Clerk Ciarra Roy January 27, 2023 8:40pm Name of Medical Power of Grocery Store Courtesy Clerk Ciarra Robison, February 10, 2023 8:27pm Name of Medical Power of Grocery Store Courtesy Clerk Ciarra MEEKS w david February 11, 2023 7:40pm Advance Directives Yes September 16 10:11pm Living Will Yes February 11, 2023 7:40pm Power of Grocery Store Courtesy Clerk Yes February 11 7:40pm Name of Medical Power of Grocery Store Courtesy Clerk Ciarra Roy January 21, 2023 11:23am Advance Directive Response Recorded Date/ Time Name of Medical Power of Grocery Store Courtesy Clerk Ciarra Roy January 27, 2023 8:40pm Name of Medical Power of Grocery Store Courtesy Clerk Ciarra Robison, February 10, 2023 8:27pm Name of Medical Power of Grocery Store Courtesy Clerk Ciarra MEEKS w david February 11, 2023 7:40pm Advance Directives Yes September 16 10:11pm Living Will No May 30, 2 023 11:36am Power of Grocery Store Courtesy Clerk No May 30, 2023 11:36am Advance Directive Response Recorded Date/ Time Advance Directives Yes September 16 10:11pm Living Will No May 30, 2 023 11:36am Power of Grocery Store Courtesy Clerk No May 30, 2023 11:36am Advance Directive Response Recorded Date/ Time Advance Directives Yes September 16 11:11pm Living Will No May 30, 2 023 12:36pm Power of Grocery Store Courtesy Clerk No May 30, 2023 12:36pm Advance Directive [...] day post implant check RECURRENT GI BLEED CORRECTION LABWORK AMS BACTEREMIA, CYSTITIS Urinary tract infection [...] day post implant check RECURRENT GI BLEED CORRECTION LABWORK AMS LAB WORK BACTEREMIA, CYSTITIS Urinary tract infection BACTEREMIA, CYSTITIS BACTEREMIA, CYSTITIS LAB WORK LAB WORK 1 wk wound check LABWORK LABWORK LABWORK LABWORK LABWORK CORRECTION LABWORK LABWORK 6 wk post PPM implant [...] day post implant check RECURRENT GI BLEED CORRECTION LABWORK AMS LAB WORK BACTEREMIA, CYSTITIS Urinary tract infection BACTEREMIA, CYSTITIS BACTEREMIA, CYSTITIS LAB WORK LAB WORK 1 wk wound check LABWORK LABWORK LABWORK LABWORK LABWORK CORRECTION LABWORK LABWORK 6 wk post PPM implant f/u / KR @ 2p S/P PACER IMPLANT 6 wk fu / NAA @ 1:30 LABWORK CORRECTION LAB WORK CORRECTION LABWORK CORRECTION LAB WORK Reason for Visit Confusion Weakness [...] day post implant check RECURRENT GI BLEED CORRECTION LABWORK AMS LAB WORK BACTEREMIA, CYSTITIS Urinary tract infection BACTEREMIA, CYSTITIS BACTEREMIA, CYSTITIS LAB WORK LAB WORK 1 wk wound check LABWORK LABWORK LABWORK LABWORK LABWORK CORRECTION LABWORK LABWORK 6 wk post PPM implant f/u / KR @ 2p S/P PACER IMPLANT 6 wk fu / NAA @ 1:30 LABWORK CORRECTION LAB WORK CORRECTION LABWORK CORRECTION LAB WORK CORRECTION LAB WORK Reason for Visit Confusion Weakness [...] day post implant check RECURRENT GI BLEED CORRECTION LABWORK AMS LAB WORK BACTEREMIA, CYSTITIS Urinary tract infection BACTEREMIA, CYSTITIS BACTEREMIA, CYSTITIS LAB WORK LAB WORK 1 wk wound check LABWORK LABWORK LABWORK LABWORK LABWORK CORRECTION LABWORK LABWORK 6 wk post PPM implant f/u / KR @ 2p S/P PACER IMPLANT 6 wk fu / NAA @ 1:30 LABWORK CORRECTION LAB WORK CORRECTION LABWORK CORRECTION LAB WORK CORRECTION LAB WORK LABWORK Reason for Visit Acute [...] day post implant check RECURRENT GI BLEED CORRECTION LABWORK AMS LAB WORK BACTEREMIA, CYSTITIS Urinary tract infection BACTEREMIA, CYSTITIS BACTEREMIA, CYSTITIS LAB WORK LAB WORK 1 wk wound check LABWORK LABWORK LABWORK LABWORK LABWORK CORRECTION LABWORK LABWORK 6 wk post PPM implant f/u / KR @ 2p S/P PACER IMPLANT 6 wk fu / NAA @ 1:30 LABWORK CORRECTION LAB WORK CORRECTION LABWORK CORRECTION LAB WORK CORRECTION LAB WORK LABWORK LABWORK Reason for Visit [...] day post implant check RECURRENT GI BLEED CORRECTION LABWORK AMS LAB WORK BACTEREMIA, CYSTITIS Urinary tract infection BACTEREMIA, CYSTITIS BACTEREMIA, CYSTITIS LAB WORK LAB WORK 1 wk wound check LABWORK LABWORK LABWORK LABWORK LABWORK CORRECTION LABWORK LABWORK 6 wk post PPM implant f/u / KR @ 2p S/P PACER IMPLANT 6 wk fu / NAA @ 1:30 LABWORK CORRECTION LAB WORK CORRECTION LABWORK CORRECTION LAB WORK CORRECTION LAB WORK LABWORK LABWORK CORRECTION LAB WORK Reason for Visit HTN (hypertension) [...] day post implant check RECURRENT GI BLEED CORRECTION LABWORK AMS LAB WORK BACTEREMIA, CYSTITIS Urinary tract infection BACTEREMIA, CYSTITIS BACTEREMIA, CYSTITIS LAB WORK LAB WORK 1 wk wound check LABWORK LABWORK LABWORK LABWORK LABWORK CORRECTION LABWORK LABWORK 6 wk post PPM implant f/u / KR @ 2p S/P PACER IMPLANT 6 wk fu / NAA @ 1:30 LABWORK CORRECTION LAB WORK CORRECTION LABWORK CORRECTION LAB WORK CORRECTION LAB WORK LABWORK LABWORK CORRECTION LAB WORK Reason for Visit HTN (hypertension) [...] II Chief Complaint LABWORK LABWORK LABWORK LABWORK CORRECTION LABWORK LABWORK 6 wk post PPM implant f/u / KR @ 2p S/P PACER IMPLANT 6 wk fu / NAA @ 1:30 LABWORK CORRECTION LAB WORK CORRECTION LABWORK CORRECTION LAB WORK CORRECTION LAB WORK LABWORK LABWORK CORRECTION LAB WORK LABWORK Reason for Visit Presence of cardiac pacemaker Syncope Second degree AV block, Mobitz type II Sick sinus syndrome Atrial fibrillation HLD (hyperlipidemia) Presence of cardiac pacemaker HTN (hypertension) Second degree AV block, Mobitz type II Chief Complaint LABWORK CORRECTION LABWORK LABWORK 6 wk post PPM implant f/u / KR @ 2p S/P PACER IMPLANT 6 wk fu / NAA @ 1:30 LABWORK CORRECTION LAB WORK CORRECTION LABWORK CORRECTION LAB WORK CORRECTION LAB WORK LABWORK LABWORK CORRECTION LAB WORK CORRECTION LAB WORK LABWORK LABWORK Reason for Visit Presence of cardiac pacemaker Syncope Second degree AV block, Mobitz type II Sick sinus syndrome Atrial fibrillation HLD (hyperlipidemia) Presence of cardiac pacemaker HTN (hypertension) Second degree AV block, Mobitz type II Chief Complaint CORRECTION LABWORK LABWORK 6 wk post PPM implant f/u / KR @ 2p S/P PACER IMPLANT 6 wk fu / NAA @ 1:30 LABWORK CORRECTION LAB WORK CORRECTION LABWORK CORRECTION LAB WORK CORRECTION LAB WORK LABWORK LABWORK CORRECTION LAB WORK CORRECTION LAB WORK LABWORK CORRECTION LAB WORK LABWORK Reason for Visit Presence of cardiac pacemaker Syncope Second degree AV block, Mobitz type II Sick sinus syndrome Atrial fibrillation HLD (hyperlipidemia) Presence of cardiac pacemaker HTN (hypertension) Second degree AV block, Mobitz type II Chief Complaint LABWORK 6 wk post PPM implant f/u / KR @ 2p S/P PACER IMPLANT 6 wk fu / NAA @ 1:30 LABWORK CORRECTION LAB WORK CORRECTION LABWORK CORRECTION LAB WORK CORRECTION LAB WORK LABWORK LABWORK CORRECTION LAB WORK CORRECTION LAB WORK LABWORK CORRECTION LAB WORK LABWORK LABWORK Reason for Visit Presence of cardiac pacemaker Syncope Second degree AV block, Mobitz type II Sick sinus syndrome Atrial fibrillation HLD (hyperlipidemia) Presence of cardiac pacemaker HTN (hypertension) Second degree AV block, Mobitz type II Chief Complaint LABWORK 6 wk post PPM implant f/u / KR @ 2p S/P PACER IMPLANT 6 wk fu / NAA @ 1:30 LABWORK CORRECTION LAB WORK CORRECTION LABWORK CORRECTION LAB WORK CORRECTION LAB WORK LABWORK LABWORK CORRECTION LAB WORK CORRECTION LAB WORK LABWORK CORRECTION LAB WORK CORRECTION LABWORK LABWORK LABWORK Reason for Visit Presence of cardiac pacemaker Syncope Second degree AV block, Mobitz type II Sick sinus syndrome Atrial fibrillation HLD (hyperlipidemia) Presence of cardiac pacemaker HTN (hypertension) Second degree AV block, Mobitz type II Chief Complaint 6 wk post PPM implan t f/u / KR @ 2p S/P PACER IMPLANT 6 wk fu / NAA @ 1:30 LABWORK CORRECTION LAB WORK CORRECTION LABWORK CORRECTION LAB WORK CORRECTION LAB WORK LABWORK LABWORK CORRECTION LAB WORK CORRECTION LAB WORK LABWORK CORRECTION LAB WORK CORRECTION LABWORK LABWORK CORRECTION LAB WORK LABWORK Reason for Visit Presence of cardiac pacemaker Syncope Second degree AV block, Mobitz type II Sick sinus syndrome Atrial fibrillation HLD (hyperlipidemia) Presence of cardiac pacemaker HTN (hypertension) Second degree AV block, Mobitz type II Chief Complaint LABWORK CORRECTION LAB WORK CORRECTION LABWORK CORRECTION LAB WORK CORRECTION LAB WORK LABWORK LABWORK CORRECTION LAB WORK CORRECTION LAB WORK LABWORK CORRECTION LAB WORK CORRECTION LABWORK LABWORK CORRECTION LAB WORK LABWORK LABWORK LABWORK Chief Complaint CORRECTION LAB WOR K CORRECTION LABWORK CORRECTION LAB WORK CORRECTION LAB WORK LABWORK LABWORK CORRECTION LAB WORK CORRECTION LAB WORK LABWORK CORRECTION LAB WORK CORRECTION LABWORK LABWORK CORRECTION LAB WORK LABWORK LABWORK LABWORK LABWORK Chief Complaint CORRECTION LAB WOR K CORRECTION LAB WORK LABWORK LABWORK CORRECTION LAB WORK CORRECTION LAB WORK LABWORK CORRECTION LAB WORK CORRECTION LABWORK LABWORK CORRECTION LAB WORK LABWORK CORRECTION LAB WORK LABWORK LABWORK LABWORK Chief Complaint CORRECTION LAB WOR K LABWORK LABWORK CORRECTION LAB WORK CORRECTION LAB WORK LABWORK CORRECTION LAB WORK CORRECTION LABWORK LABWORK CORRECTION LAB WORK LABWORK CORRECTION LAB WORK LABWORK LABWORK LABWORK LABWORK Chief Complaint CORRECTION LAB WOR K LABWORK LABWORK CORRECTION LAB WORK CORRECTION LAB WORK LABWORK CORRECTION LAB WORK CORRECTION LABWORK LABWORK CORRECTION LAB WORK LABWORK CORRECTION LAB WORK LABWORK LABWORK LABWORK CORRECTION LABWORK LABWORK Chief Complaint LABWORK LABWORK CORRECTION LAB WORK CORRECTION LAB WORK LABWORK CORRECTION LAB WORK CORRECTION LABWORK LABWORK CORRECTION LAB WORK LABWORK CORRECTION LAB WORK LABWORK LABWORK LABWORK CORRECTION LABWORK LABWORK LABWORK Chief Complaint LABWORK CORRECTION LAB WORK CORRECTION LAB WORK LABWORK CORRECTION LAB WORK CORRECTION LABWORK LABWORK CORRECTION LAB WORK LABWORK CORRECTION LAB WORK LABWORK LABWORK LABWORK CORRECTION LABWORK LABWORK LABWORK LABWORK Chief Complaint CORRECTION LAB WOR K CORRECTION LAB WORK LABWORK CORRECTION LAB WORK CORRECTION LABWORK LABWORK CORRECTION LAB WORK LABWORK CORRECTION LAB WORK LABWORK LABWORK LABWORK CORRECTION LABWORK LABWORK LABWORK LABWORK LABWORK Chief Complaint CORRECTION LAB WOR K LABWORK CORRECTION LAB WORK CORRECTION LABWORK LABWORK CORRECTION LAB WORK LABWORK CORRECTION LAB WORK LABWORK LABWORK LABWORK CORRECTION LABWORK LABWORK LABWORK LABWORK LABWORK LABWORK Chief Complaint CORRECTION LAB WOR K LABWORK CORRECTION LAB WORK CORRECTION LABWORK LABWORK CORRECTION LAB WORK LABWORK CORRECTION LAB WORK LABWORK LABWORK LABWORK CORRECTION LABWORK LABWORK LABWORK LABWORK LABWORK LABWORK LABWORK Chief Complaint CORRECTION LAB WOR K LABWORK CORRECTION LAB WORK CORRECTION LABWORK LABWORK CORRECTION LAB WORK LABWORK CORRECTION LAB WORK LABWORK LABWORK LABWORK CORRECTION LABWORK LABWORK LABWORK LABWORK LABWORK LABWORK LABWORK LABWORK Chief Complaint CORRECTION LAB WOR K LABWORK CORRECTION LAB WORK CORRECTION LABWORK LABWORK CORRECTION LAB WORK LABWORK CORRECTION LAB WORK LABWORK LABWORK LABWORK CORRECTION LABWORK LABWORK LABWORK LABWORK LABWORK LABWORK LABWORK CORRECTION LAB WORK LABWORK Chief Complaint CORRECTION LAB WOR K LABWORK CORRECTION LAB WORK CORRECTION LABWORK LABWORK CORRECTION LAB WORK LABWORK CORRECTION LAB WORK LABWORK LABWORK LABWORK CORRECTION LABWORK LABWORK LABWORK LABWORK LABWORK LABWORK LABWORK CORRECTION LAB WORK LABWORK LABWORK 6 M FU Chief Complaint CORRECTION LAB WOR K CORRECTION LABWORK LABWORK CORRECTION LAB WORK LABWORK CORRECTION LAB WORK LABWORK LABWORK LABWORK CORRECTION LABWORK LABWORK LABWORK LABWORK LABWORK LABWORK LABWORK CORRECTION LAB WORK LABWORK LABWORK LABWORK 6 M FU Reason for Visit Atrial fibrillation HLD (hyperlipidemia) Presence of cardiac pacemaker HTN (hypertension) Second degree AV block, Mobitz type II Chief Complaint CORRECTION LABWORK LABWORK CORRECTION LAB WORK LABWORK CORRECTION LAB WORK LABWORK LABWORK LABWORK CORRECTION LABWORK LABWORK LABWORK LABWORK LABWORK LABWORK LABWORK CORRECTION LAB WORK LABWORK LABWORK LABWORK 6 M FU CORRECTION LAB WORK Reason for Visit Atrial fibrillation HLD (hyperlipidemia) Presence of cardiac pacemaker HTN (hypertension) Second degree AV block, Mobitz type II Chief Complaint CORRECTION LAB WOR K LABWORK CORRECTION LAB WORK LABWORK LABWORK LABWORK CORRECTION LABWORK LABWORK LABWORK LABWORK LABWORK LABWORK LABWORK CORRECTION LAB WORK LABWORK LABWORK LABWORK 6 M LABWORK CORRECTION LAB WORK Reason for Visit Atrial fibrillation HLD (hyperlipidemia) Presence of cardiac pacemaker HTN (hypertension) Second degree AV block, Mobitz type II Chief Complaint LABWORK LABWORK CORRECTION LABWORK LABWORK 6 wk post PPM implant f/u / KR @ 2p S/P PACER IMPLANT 6 wk fu / NAA @ 1:30 LABWORK CORRECTION LAB WORK CORRECTION LABWORK CORRECTION LAB WORK CORRECTION LAB WORK LABWORK LABWORK CORRECTION LAB WORK CORRECTION LAB WORK LABWORK Reason for Visit Presence of cardiac pacemaker Syncope Second degree AV block, Mobitz type II Sick sinus syndrome Atrial fibrillation HLD (hyperlipidemia) Presence of cardiac pacemaker HTN (hypertension) Second degree AV block, Mobitz type II Chief Complaint Admit Date CORRECTION LAB WORK July 01 4:00am CORRECTION LAB WORK July 07 5:00am LABWORK July 27, 2024 5 :00am CORRECTION LAB WORK August 04, 2024 5:00am CORRECTION LAB WORK September 29, 2024 4 :00am [...] 2024 1:0 9pm Chief Complaint Admit Date CORRECTION LAB WORK July 01 4:00am CORRECTION LAB WORK July 07 5:00am LABWORK July 27, 2024 5 :00am CORRECTION LAB WORK August 04, 2024 5:00am CORRECTION LAB WORK September 29, 2024 4 :00am CORRECTION LAB WORK October 05, 2024 5 :00am [...] Diagnoses Driving safety issue Procedures CONSULT TO CDL B DRIVER OCCUPATIONAL THERAPY EVAL HIGH COMPLEX 60 MINS Jojo Kaur MD [address] [place] [address] [facility] [address] [address] Referral ID Status Reason Start Date Expiration Date Visits Requested Visits Authorized [id number] Authorized PCP Requested Referral Auto-Generate d Referral 09/07/2022 09/07/2023 99 99 Specialty Diagnoses / Procedures Referred By Linn carrillo Referred To Contact [facility] Diagnoses Polyneuropathy Procedures CONSULT TO PHYSICAL THERAPY PHYSICAL THERAPY EVALUATION HIGH COMPLEX 45 MINS Jojo Kaur MD [address] [place] [address] [facility] [address] [address] Referral ID Status Reason Start Date Expiration Date Visits Requested Visits Authorized [id number] Authorized PCP Requested Referral Auto-Generate d Referral 04/17/2022 04/17/2023 99 99 Specialty Diagnoses / Procedures Referred By Contac t Referred To Contact Psychology Diagnoses Generalized anxiety disorder Procedures CONSULT TO PSYCHOLOGY OFFICE/OUTPATIENT [facility] 60-74 MINUTES Jojo Kaur MD [address] [place] [address] Referral ID Status Reason Start Date Expiration Date Visits Requested Visits Authorized [id number] Pending Review PCP Requested Referral 04/17/2022 04/17/2023 1 1 Specialty Diagnoses / Procedures Referred By Contac t Referred To Contact Podiatry Diagnoses Type 2 diabetes mellitus with diabetic neuropathy, with long-term current use of insulin ([facility]) Procedures CONSULT TO PODIATRY OFFICE/OUTPATIENT [facility] 60-74 MINUTES PodlogRoselia hernandez APRN.[facility] [address] [place] [address] Referral ID Status Reason Start Date Expiration Date Visits Requested Visits Authorized [id number] Authorized PCP Requested Referral 01/12/2022 01/11/2023 1 1 Specialty Diagnoses / Procedures Referred By Contac t Referred To Contact [facility] Diagnoses Altered mental status, unspecified altered mental status type Procedures CONSULT TO SPEECH THERAPY OFFICE/OUTPATIENT [facility] 60-74 MINUTES Jojo Kaur MD [address] [place] [address] [facility] [address] [address] Referral ID Status Reason Start Date Expiration Date Visits Requested Visits Authorized [id number] Authorized Auto-Generat ed Referral 01/05/2022 01/05/2023 99 99 Specialty Diagnoses / Procedures Referred By Contac t Referred To Contact [facility] Diagnoses Abnormality of gait due to impairment of balance Procedures CONSULT TO PHYSICAL THERAPY PHYSICAL THERAPY EVALUATION HIGH COMPLEX 45 MINS Jojo Kaur MD [address] [place] [address] [facility] [address] [address] Referral ID Status Reason Start Date Expiration Date Visits Requested Visits Authorized [id number] Authorized PCP Requested Referral Auto-Generate d Referral 01/05/2022 01/05/2023 99 99 Specialty Diagnoses / Procedures Referred By Contac t Referred To Contact [facility] Diagnoses Altered mental status, unspecified altered mental status type Procedures EPIL EEG ROUTINE ELECTROENCEPHALOGRAM REC COMA/SLEEP ONLY Jojo Kaur MD [address] [place] [address] [facility] [address] [place] [address] Referral ID Status Reason Start Date Expiration Date Visits Requested Visits Authorized [id number] Authorized Auto-Generat ed Referral 01/05/2022 01/05/2023 1 1 Specialty Diagnoses / Procedures Referred By Contac t Referred To Contact Neurology Diagnoses Altered mental status, unspecified altered mental status type Procedures CONSULT TO NEUROLOGY OFFICE/OUTPATIENT [facility] 60-74 MINUTES Abdulaziz Caldera MD [address] [place] [address] Referral ID Status Reason Start Date Expiration Date Visits Requested Visits Authorized [id number] Authorized PCP Requested Referral 01/01/2022 01/01/2023 1 1 Summary Purpose Additional Source Comments Source Comments (unrecognize d section and content) In the event this informatio n is protected by the Federal Confidentiality of Alcohol and Drug Abuse Patient Records regulations: The Federal rules restrict any use of the information to criminally investigate or prosecute any alcohol or drug abuse patient.[facility] the event this information is protected by the Federal Confidentiality of Alcohol and Drug Abuse Patient Records regulations: The Federal rules restrict any use of the information to criminally investigate or prosecute any alcohol or drug abuse patient.[facility] the event this information is protected by the Federal Confidentiality of Alcohol and Drug Abuse Patient Records regulations: The Federal rules restrict any use of the information to criminally investigate or prosecute any alcohol or drug abuse patient.[facility] the event this information is protected by the Federal Confidentiality of Alcohol and Drug Abuse Patient Records regulations: The Federal rules restrict any use of the information to criminally investigate or prosecute any alcohol or drug abuse patient.[facility] the event this information is protected by the Federal Confidentiality of Alcohol and Drug Abuse Patient Records regulations: The Federal rules restrict any use of the information to criminally investigate or prosecute any alcohol or drug abuse patient.[facility] the event this information is protected by the Federal Confidentiality of Alcohol and Drug Abuse Patient Records regulations: The Federal rules restrict any use of the information to criminally investigate or prosecute any alcohol or drug abuse patient.[facility]In the event this information is protected by the Federal Confidentiality of Alcohol and Drug Abuse Patient Records regulations: The Federal rules restrict any use of the information to criminally investigate or prosecute any alcohol or drug abuse patient.[facility]In the event this information is protected by the Federal Confidentiality of Alcohol and Drug Abuse Patient Records regulations: The Federal rules restrict any use of the information to criminally investigate or prosecute any alcohol or drug abuse patient.[facility] the event this information is protected by the Federal Confidentiality of Alcohol and Drug Abuse Patient Records regulations: The Federal rules restrict any use of the information to criminally investigate or prosecute any alcohol or drug abuse patient.[facility]In the event this information is protected by the Federal Confidentiality of Alcohol and Drug Abuse Patient Records regulations: The Federal rules restrict any use of the information to criminally investigate or prosecute any alcohol or drug abuse patient.[facility]In the event this information is protected by the Federal Confidentiality of Alcohol and Drug Abuse Patient Records regulations: The Federal rules restrict any use of the information to criminally investigate or prosecute any alcohol or drug abuse patient.[facility]In the event this information is protected by the Federal Confidentiality of Alcohol and Drug Abuse Patient Records regulations: The Federal rules restrict any use of the information to criminally investigate or prosecute any alcohol or drug abuse patient.[facility]In the event this information is protected by the Federal Confidentiality of Alcohol and Drug Abuse Patient Records regulations: The Federal rules restrict any use of the information to criminally investigate or prosecute any alcohol or drug abuse patient.[facility]In the event this information is protected by the Federal Confidentiality of Alcohol and Drug Abuse Patient Records regulations: The Federal rules restrict any use of the information to criminally investigate or prosecute any alcohol or drug abuse patient.[facility] HospitalIn the event this information is protected by the Federal Confidentiality of Alcohol and Drug Abuse Patient Records regulations: The Federal rules restrict any use of the information to criminally investigate or prosecute any alcohol or drug abuse patient.[facility] HospitalIn the event this information is protected by the Federal Confidentiality of Alcohol and Drug Abuse Patient Records regulations: The Federal rules restrict any use of the information to criminally investigate or prosecute any alcohol or drug abuse patient.[facility]In the event this information is protected by the Federal Confidentiality of Alcohol and Drug Abuse Patient Records regulations: The Federal rules restrict any use of the information to criminally investigate or prosecute any alcohol or drug abuse patient.[facility] HospitalIn the event this information is protected by the Federal Confidentiality of Alcohol and Drug Abuse Patient Records regulations: The Federal rules restrict any use of the information to criminally investigate or prosecute any alcohol or drug abuse patient.[facility] HospitalIn the event this information is protected by the Federal Confidentiality of Alcohol and Drug Abuse Patient Records regulations: The Federal rules restrict any use of the information to criminally investigate or prosecute any alcohol or drug abuse patient.[facility] HospitalIn the event this information is protected by the Federal Confidentiality of Alcohol and Drug Abuse Patient Records regulations: The Federal rules restrict any use of the information to criminally investigate or prosecute any alcohol or drug abuse patient.[facility] HospitalIn the event this information is protected by the Federal Confidentiality of Alcohol and Drug Abuse Patient Records regulations: The Federal rules restrict any use of the information to criminally investigate or prosecute any alcohol or drug abuse patient.[facility] HospitalIn the event this information is protected by the Federal Confidentiality of Alcohol and Drug Abuse Patient Records regulations: The Federal rules restrict any use of the information to criminally investigate or prosecute any alcohol or drug abuse patient.[facility] HospitalIn the event this information is protected by the Federal Confidentiality of Alcohol and Drug Abuse Patient Records regulations: The Federal rules restrict any use of the information to criminally investigate or prosecute any alcohol or drug abuse patient.[facility] HospitalIn the event this information is protected by the Federal Confidentiality of Alcohol and Drug Abuse Patient Records regulations: The Federal rules restrict any use of the information to criminally investigate or prosecute any alcohol or drug abuse patient.[facility]In the event this information is protected by the Federal Confidentiality of Alcohol and Drug Abuse Patient Records regulations: The Federal rules restrict any use of the information to criminally investigate or prosecute any alcohol or drug abuse patient.[facility] HospitalIn the event this information is protected by the Federal Confidentiality of Alcohol and Drug Abuse Patient Records regulations: The Federal rules restrict any use of the information to criminally investigate or prosecute any alcohol or drug abuse patient.[facility] HospitalIn the event this information is protected by the Federal Confidentiality of Alcohol and Drug Abuse Patient Records regulations: The Federal rules restrict any use of the information to criminally investigate or prosecute any alcohol or drug abuse patient.[facility] HospitalIn the event this information is protected by the Federal Confidentiality of Alcohol and Drug Abuse Patient Records regulations: The Federal rules restrict any use of the information to criminally investigate or prosecute any alcohol or drug abuse patient.[facility] HospitalIn the event this information is protected by the Federal Confidentiality of Alcohol and Drug Abuse Patient Records regulations: The Federal rules restrict any use of the information to criminally investigate or prosecute any alcohol or drug abuse patient.[facility] HospitalIn the event this information is protected by the Federal Confidentiality of Alcohol and Drug Abuse Patient Records regulations: The Federal rules restrict any use of the information to criminally investigate or prosecute any alcohol or drug abuse patient.[facility] HospitalIn the event this information is protected by the Federal Confidentiality of Alcohol and Drug Abuse Patient Records regulations: The Federal rules restrict any use of the information to criminally investigate or prosecute any alcohol or drug abuse patient.[facility] HospitalIn the event this information is protected by the Federal Confidentiality of Alcohol and Drug Abuse Patient Records regulations: The Federal rules restrict any use of the information to criminally investigate or prosecute any alcohol or drug abuse patient.[facility] HospitalIn the event this information is protected by the Federal Confidentiality of Alcohol and Drug Abuse Patient Records regulations: The Federal rules restrict any use of the information to criminally investigate or prosecute any alcohol or drug abuse patient.[facility] HospitalIn the event this information is protected by the Federal Confidentiality of Alcohol and Drug Abuse Patient Records regulations: The Federal rules restrict any use of the information to criminally investigate or prosecute any alcohol or drug abuse patient.[facility] HospitalIn the event this information is protected by the Federal Confidentiality of Alcohol and Drug Abuse Patient Records regulations: The Federal rules restrict any use of the information to criminally investigate or prosecute any alcohol or drug abuse patient.[facility] HospitalIn the event this information is protected by the Federal Confidentiality of Alcohol and Drug Abuse Patient Records regulations: The Federal rules restrict any use of the information to criminally investigate or prosecute any alcohol or drug abuse patient.[facility] HospitalIn the event this information is protected by the Federal Confidentiality of Alcohol and Drug Abuse Patient Records regulations: The Federal rules restrict any use of the information to criminally investigate or prosecute any alcohol or drug abuse patient.[facility] HospitalIn the event this information is protected by the Federal Confidentiality of Alcohol and Drug Abuse Patient Records regulations: The Federal rules restrict any use of the information to criminally investigate or prosecute any alcohol or drug abuse patient.[facility] HospitalIn the event this information is protected by the Federal Confidentiality of Alcohol and Drug Abuse Patient Records regulations: The Federal rules restrict any use of the information to criminally investigate or prosecute any alcohol or drug abuse patient.[facility] HospitalIn the event this information is protected by the Federal Confidentiality of Alcohol and Drug Abuse Patient Records regulations: The Federal rules restrict any use of the information to criminally investigate or prosecute any alcohol or drug abuse patient.[facility] HospitalIn the event this information is protected by the Federal Confidentiality of Alcohol and Drug Abuse Patient Records regulations: The Federal rules restrict any use of the information to criminally investigate or prosecute any alcohol or drug abuse patient.[facility] HospitalIn the event this information is protected by the Federal Confidentiality of Alcohol and Drug Abuse Patient Records regulations: The Federal rules restrict any use of the information to criminally investigate or prosecute any alcohol or drug abuse patient.[facility] HospitalIn the event this information is protected by the Federal Confidentiality of Alcohol and Drug Abuse Patient Records regulations: The Federal rules restrict any use of the information to criminally investigate or prosecute any alcohol or drug abuse patient.[facility] HospitalIn the event this information is protected by the Federal Confidentiality of Alcohol and Drug Abuse Patient Records regulations: The Federal rules restrict any use of the information to criminally investigate or prosecute any alcohol or drug abuse patient.[facility] HospitalIn the event this information is protected by the Federal Confidentiality of Alcohol and Drug Abuse Patient Records regulations: The Federal rules restrict any use of the information to criminally investigate or prosecute any alcohol or drug abuse patient.[facility] HospitalIn the event this information is protected by the Federal Confidentiality of Alcohol and Drug Abuse Patient Records regulations: The Federal rules restrict any use of the information to criminally investigate or prosecute any alcohol or drug abuse patient.[facility] HospitalIn the event this information is protected by the Federal Confidentiality of Alcohol and Drug Abuse Patient Records regulations: The Federal rules restrict any use of the information to criminally investigate or prosecute any alcohol or drug abuse patient.[facility] HospitalIn the event this information is protected by the Federal Confidentiality of Alcohol and Drug Abuse Patient Records regulations: The Federal rules restrict any use of the information to criminally investigate or prosecute any alcohol or drug abuse patient.[facility] HospitalIn the event this information is protected by the Federal Confidentiality of Alcohol and Drug Abuse Patient Records regulations: The Federal rules restrict any use of the information to criminally investigate or prosecute any alcohol or drug abuse patient.[facility] HospitalIn the event this information is protected by the Federal Confidentiality of Alcohol and Drug Abuse Patient Records regulations: The Federal rules restrict any use of the information to criminally investigate or prosecute any alcohol or drug abuse patient.[facility] HospitalIn the event this information is protected by the Federal Confidentiality of Alcohol and Drug Abuse Patient Records regulations: The Federal rules restrict any use of the information to criminally investigate or prosecute any alcohol or drug abuse patient.[facility] HospitalIn the event this information is protected by the Federal Confidentiality of Alcohol and Drug Abuse Patient Records regulations: The Federal rules restrict any use of the information to criminally investigate or prosecute any alcohol or drug abuse patient.[facility] HospitalIn the event this information is protected by the Federal Confidentiality of Alcohol and Drug Abuse Patient Records regulations: The Federal rules restrict any use of the information to criminally investigate or prosecute any alcohol or drug abuse patient.[facility] HospitalIn the event this information is protected by the Federal Confidentiality of Alcohol and Drug Abuse Patient Records regulations: The Federal rules restrict any use of the information to criminally investigate or prosecute any alcohol or drug abuse patient.[facility] HospitalIn the event this information is protected by the Federal Confidentiality of Alcohol and Drug Abuse Patient Records regulations: The Federal rules restrict any use of the information to criminally investigate or prosecute any alcohol or drug abuse patient.[facility] HospitalIn the event this information is protected by the Federal Confidentiality of Alcohol and Drug Abuse Patient Records regulations: The Federal rules restrict any use of the information to criminally investigate or prosecute any alcohol or drug abuse patient.[facility] HospitalIn the event this information is protected by the Federal Confidentiality of Alcohol and Drug Abuse Patient Records regulations: The Federal rules restrict any use of the information to criminally investigate or prosecute any alcohol or drug abuse patient.[facility] HospitalIn the event this information is protected by the Federal Confidentiality of Alcohol and Drug Abuse Patient Records regulations: The Federal rules restrict any use of the information to criminally investigate or prosecute any alcohol or drug abuse patient.[facility] HospitalIn the event this information is protected by the Federal Confidentiality of Alcohol and Drug Abuse Patient Records regulations: The Federal rules restrict any use of the information to criminally investigate or prosecute any alcohol or drug abuse patient.[facility] HospitalIn the event this information is protected by the Federal Confidentiality of Alcohol and Drug Abuse Patient Records regulations: The Federal rules restrict any use of the information to criminally investigate or prosecute any alcohol or drug abuse patient.[facility] HospitalIn the event this information is protected by the Federal Confidentiality of Alcohol and Drug Abuse Patient Records regulations: The Federal rules restrict any use of the information to criminally investigate or prosecute any alcohol or drug abuse patient.[facility] HospitalIn the event this information is protected by the Federal Confidentiality of Alcohol and Drug Abuse Patient Records regulations: The Federal rules restrict any use of the information to criminally investigate or prosecute any alcohol or drug abuse patient.[facility] HospitalIn the event this information is protected by the Federal Confidentiality of Alcohol and Drug Abuse Patient Records regulations: The Federal rules restrict any use of the information to criminally investigate or prosecute any alcohol or drug abuse patient.[facility] HospitalIn the event this information is protected by the Federal Confidentiality of Alcohol and Drug Abuse Patient Records regulations: The Federal rules restrict any use of the information to criminally investigate or prosecute any alcohol or drug abuse patient.[facility] HospitalIn the event this information is protected by the Federal Confidentiality of Alcohol and Drug Abuse Patient Records regulations: The Federal rules restrict any use of the information to criminally investigate or prosecute any alcohol or drug abuse patient.[facility] HospitalIn the event this information is protected by the Federal Confidentiality of Alcohol and Drug Abuse Patient Records regulations: The Federal rules restrict any use of the information to criminally investigate or prosecute any alcohol or drug abuse patient.[facility] HospitalIn the event this information is protected by the Federal Confidentiality of Alcohol and Drug Abuse Patient Records regulations: The Federal rules restrict any use of the information to criminally investigate or prosecute any alcohol or drug abuse patient.[facility] HospitalIn the event this information is protected by the Federal Confidentiality of Alcohol and Drug Abuse Patient Records regulations: The Federal rules restrict any use of the information to criminally investigate or prosecute any alcohol or drug abuse patient.[facility] HospitalIn the event this information is protected by the Federal Confidentiality of Alcohol and Drug Abuse Patient Records regulations: The Federal rules restrict any use of the information to criminally investigate or prosecute any alcohol or drug abuse patient.[facility] HospitalIn the event this information is protected by the Federal Confidentiality of Alcohol and Drug Abuse Patient Records regulations: The Federal rules restrict any use of the information to criminally investigate or prosecute any alcohol or drug abuse patient.[facility] HospitalIn the event this information is protected by the Federal Confidentiality of Alcohol and Drug Abuse Patient Records regulations: The Federal rules restrict any use of the information to criminally investigate or prosecute any alcohol or drug abuse patient.[facility] HospitalIn the event this information is protected by the Federal Confidentiality of Alcohol and Drug Abuse Patient Records regulations: The Federal rules restrict any use of the information to criminally investigate or prosecute any alcohol or drug abuse patient.[facility] HospitalIn the event this information is protected by the Federal Confidentiality of Alcohol and Drug Abuse Patient Records regulations: The Federal rules restrict any use of the information to criminally investigate or prosecute any alcohol or drug abuse patient.[facility] HospitalIn the event this information is protected by the Federal Confidentiality of Alcohol and Drug Abuse Patient Records regulations: The Federal rules restrict any use of the information to criminally investigate or prosecute any alcohol or drug abuse patient.[facility] HospitalIn the event this information is protected by the Federal Confidentiality of Alcohol and Drug Abuse Patient Records regulations: The Federal rules restrict any use of the information to criminally investigate or prosecute any alcohol or drug abuse patient.[facility] HospitalIn the event this information is protected by the Federal Confidentiality of Alcohol and Drug Abuse Patient Records regulations: The Federal rules restrict any use of the information to criminally investigate or prosecute any alcohol or drug abuse patient.[facility] HospitalIn the event this information is protected by the Federal Confidentiality of Alcohol and Drug Abuse Patient Records regulations: The Federal rules restrict any use of the information to criminally investigate or prosecute any alcohol or drug abuse patient.[facility] HospitalIn the event this information is protected by the Federal Confidentiality of Alcohol and Drug Abuse Patient Records regulations: The Federal rules restrict any use of the information to criminally investigate or prosecute any alcohol or drug abuse patient.[facility] HospitalIn the event this information is protected by the Federal Confidentiality of Alcohol and Drug Abuse Patient Records regulations: The Federal rules restrict any use of the information to criminally investigate or prosecute any alcohol or drug abuse patient.[facility] Reason for Visit (unrecogniz ed section and content) Reason Comments PT Discharge Specialty Diagnoses / Procedures Referred By Contac t Referred To Contact [facility] Diagnoses Abnormality of gait due to impairment of balance Procedures CONSULT TO PHYSICAL THERAPY PHYSICAL THERAPY EVALUATION HIGH COMPLEX 45 MINS Jojo Kaur MD [address] [place] [address] [facility] [address] [place] [address] Referral ID Status Reason Start Date Expiration Date Visits Requested Visits Authorized [id number] Authorized PCP Requested Referral Auto-Generate d Referral [...] 6 mo Reason Comments Hospital Follow Up [facility] discharged Reason Comments Results Reason Comments Consult altered mental statu s Specialty Diagnoses / Procedures Referred By Contac t Referred To Contact Neurology Diagnoses Altered mental status, unspecified altered mental status type Procedures CONSULT TO NEUROLOGY OFFICE/OUTPATIENT [facility] MDM 60-74 MINUTES Abdulaziz Caldera MD [address] [place] [address] Referral ID Status Reason Start Date Expiration Date V isits Requested Visits Authorized [id number] Closed PCP Requested Referral 01/01/2022 01/01/2023 1 [...] Nursing Plan of Care Update Reason Comments [facility] PT POC Reason Comments OT plan of care Reason Onset Date Comments Refill Request 07/25/2022 Reason Comments Home Health-Nursing Update Reason Onset Date Comments Anticoagulation 07/31/2022 Specialty Diagnoses / Procedures Referred By Contcarlos t Referred To Contact Ent - Otolaryngology Diagnoses Chronic frontal sinusitis Procedures CONSULT TO ENT OFFICE/OUTPATIENT NEW [facility]IGH MDM 60-74 MINUTES Abdulaziz Caldera MD [address] [place] [address] Referral ID Status Reason Start Date Expiration Date V isits Requested Visits Authorized [id number] Closed PCP Requested Referral 07/12/2022 07/12/2023 1 [...] Care Teams (unrecognized sec tion and content) Director Emergency Relationship Specialty Start Date End Date Abdulaziz Caldera MD [address] [place], [place] [id number] PCP - General Family Practice 11/23/20 Director Emergency Relationship Specialty Start Date End Date Abdulaziz Caldera MD [address] [place], [place] [id number] PCP - General Family Practice 11/23/20 Director Emergency Relationship Specialty Start Date End Date Abdulaziz Caldera MD [address] [place], [place] [id number] PCP - General Family Practice 11/23/20 Director Emergency Relationship Specialty Start Date End Date Abdulaziz Caldera MD [address] [facility] [place] [address] PCP - General Family Practice 11/23/20 Director Emergency Relationship Specialty Start Date End Date Abdulaziz Caldera MD [address] [facility] [place] [place] [address] PCP - General Family Practice 11/23/20 Director Emergency Relationship Specialty Start Date End Date Abdulaziz Caldera MD [address] [facility] [place] [address] PCP - General Family Practice 11/23/20 Director Emergency Relationship Specialty Start Date End Date Abdulaziz Caldera MD [address] [facility] [place] [address] PCP - General Family Practice 11/23/20 Director Emergency Relationship Specialty Start Date End Date Abdulaziz Caldera MD [address] [facility] [place] [address] PCP - General Family Practice 11/23/20 Director Emergency Relationship Specialty Start Date End Date Abdulaziz Caldera MD [address] [facility] [place] [address] PCP - General Family Practice 11/23/20 Director Emergency Relationship Specialty Start Date End Date Abdulaziz Caldera MD [address] [facility] [place] [address] PCP - General Family Practice 11/23/20 Director Emergency Relationship Specialty Start Date End Date Abdulaziz Caldera MD [address] [facility] [place] [address] PCP - General Family Practice 11/23/20 Director Emergency Relationship Specialty Start Date End Date Abdulaziz Caldera MD [address] [facility] [place] [address] PCP - General Family Practice 11/23/20 Director Emergency Relationship Specialty Start Date End Date Abdulaziz Caldera MD [address] [facility] [place] [address] PCP - General Family Practice 11/23/20 Director Emergency Relationship Specialty Start Date End Date Abdulaziz Caldera MD [address] [facility] [place] [address] PCP - General Family Practice 11/23/20 Director Emergency Relationship Specialty Start Date End Date Abdulaziz Caldera MD [address] [place] [address], [place] [address] PCP - General Family Practice 11/23/20 Director Emergency Relationship Specialty Start Date End Date Abdulaziz Caldera MD [address] [place] [address], [place] [address] PCP - General Family Practice 11/23/20 Director Emergency Relationship Specialty Start Date End Date Abdulaziz Caldera MD [facility] [place] [place] [address] PCP - General Family Practice 11/23/20 Director Emergency Relationship Specialty Start Date End Date Abdulaziz Caldera MD [facility] [place] [place] [address] PCP - General Family Practice 11/23/20 Director Emergency Relationship Specialty Start Date End Date Abdulaziz Caldera MD [facility] [place] [place] [address] PCP - General Family Practice 11/23/20 Director Emergency Relationship Specialty Start Date End Date Abdulaziz Caldera MD [facility] [place] [place] [address] PCP - General Family Practice 11/23/20 Director Emergency Relationship Specialty Start Date End Date Abdulaziz Caldera MD [address] [facility] [place] [address] PCP - General Family Practice 11/23/20 Director Emergency Relationship Specialty Start Date End Date Abdulaziz Caldera MD [address] [facility] [place] [address] PCP - General Family Practice 11/23/20 Director Emergency Relationship Specialty Start Date End Date Abdulaziz Caldera MD [address] [facility] [place] [address] PCP - General Family Medicine 11/23/20 Director Emergency Relationship Specialty Start Date End Date Abdulaziz Caldera MD [address] [facility] [place] [address] PCP - General Family Medicine 11/23/20 Director Emergency Relationship Specialty Start Date End Date Abdulaziz Caldera MD [address] [facility] [place] [address] PCP - General Family Medicine 11/23/20 Director Emergency Relationship Specialty Start Date End Date Abdulaziz Caldera MD [address] [facility] [place] [address] PCP - General Family Medicine 11/23/20 Director Emergency Relationship Specialty Start Date End Date Abdulaziz Caldera MD [address] [facility] [place] [address] PCP - General Family Medicine 11/23/20 Director Emergency Relationship Specialty Start Date End Date Abdulaziz Caldera MD [address] [facility] [place] [address] PCP - General Family Medicine 11/23/20 Director Emergency Relationship Specialty Start Date End Date Abdulaziz Caldera MD [address] [facility] [place] [address] PCP - General Family Medicine 11/23/20 Director Emergency Relationship Specialty Start Date End Date Abdulaziz Caldera MD [address] [facility] [place] [address] PCP - General Family Medicine 11/23/20 Director Emergency Relationship Specialty Start Date End Date Abdulaziz Caldera MD [address] [facility] [place] [address] PCP - General Family Medicine 11/23/20 Director Emergency Relationship Specialty Start Date End Date Abdulaziz Caldera MD [address] [facility] [place] [address] PCP - General Family Medicine 11/23/20 Director Emergency Relationship Specialty Start Date End Date Abdulaziz Caldera MD [address] [facility] [place] [address] PCP - General Family Medicine 11/23/20 Director Emergency Relationship Specialty Start Date End Date Abdulaziz Caldera MD [address] [facility] [place] [address] PCP - General Family Medicine 11/23/20 Director Emergency Relationship Specialty Start Date End Date Abdulaziz Caldera MD [address] [facility] [place] [address] PCP - General Family Medicine 11/23/20 Director Emergency Relationship Specialty Start Date End Date Abdulaziz Caldera MD [address] [facility] [place] [address] PCP - General Family Medicine 11/23/20 Director Emergency Relationship Specialty Start Date End Date Abdulaziz Caldera MD [address] [facility] [place] [address] PCP - General Family Medicine 11/23/20 Director Emergency Relationship Specialty Start Date End Date Abdulaziz Caldera MD [address] [facility] [place] [address] PCP - General Family Medicine 11/23/20 Director Emergency Relationship Specialty Start Date End Date Abdulaziz Caldera MD [address] [facility] [place] [address] PCP - General Family Medicine 11/23/20 Director Emergency Relationship Specialty Start Date End Date Abdulaziz Caldera MD [address] [facility] [place] [address] PCP - General Family Medicine 11/23/20 Director Emergency Relationship Specialty Start Date End Date Abdulaziz Caldera MD [address] [facility] [place] [address] PCP - General Family Medicine 11/23/20 Team [...] MD Admit Provider, Attending Provi skip Active Director Emergency Relationship Specialty Start Date End Date Abdulaziz Caldera MD [address] [place] [address] PCP - General Family Medicine 11/23/20 Team [...] MD Primary Care Provider Acti ve Dr. Syde Allen , Emergency Provider Active Dr. Karen Aly MD Admit Provider, Attending Prov ider Active Director Emergency Relationship Specialty Start Date End Date Abdulaziz Caldera MD [address] [place] [address] PCP - General Family Medicine 11/23/20 Team [...] Provider, Other Provider Active Dr. Olga Lidia aRsheed MD Other Provider Active Dr. Yisel Rendon [...] Provider, Ref erring Provider Active Ann Rodríguez PROCESS ENVIRONMENTAL TECHNICIAN, PROCESS ENVIRONMENTAL TECHNICIAN-C Attending Provider Active Team Status: Active Member [...] DATE CREATED AUTHOR AUTHOR'S ORGANIZ ATION 02/04/2022 [facility] DATE CREATED AUTHOR AUTHOR'S ORGANIZ ATION 04/19/2022 [facility] DATE CREATED AUTHOR AUTHOR'S ORGANIZ ATION 11/07/2024 [facility] DATE CREATED AUTHOR AUTHOR'S ORGANIZ ATION 01/08/2025 [facility] FOR RECORDS PERTAINING TO PATIENTS WHO [...] BE BASED ON THE PRIMARY CLINICAL RECORDS. [facility]. provides no warranty or guarantee of the accuracy or completeness of information in this document.
--- NOTE | 2025-02-03 02:08 | PCM.RX.CS ---
Consult Antibiotic Management Pharmacy has been consulted to manage selected antibiotic: Vancomycin Type of Intervention Type of Consult: New start Suspected Infection Suspected Infection: Sepsis and Pneumonia Labs Labs: Sodium 141 mmol/L (133-145) 02/02/25 19:56 Potassium 3.8 mmol/L (3.3-5.1) 02/02/25 19:56 Chloride 104 mmol/L (98-108) 02/02/25 19:56 Carbon Dioxide 22.4 mmol/L (21.0-32.0) 02/02/25 19:56 Anion Gap 14 (5-15) 02/02/25 19:56 BUN 18 mg/dL (4-19) 02/02/25 19:56 Creatinine 1.04 mg/dL (0.70-1.20) 02/02/25 19:56 Est GFR (MDRD) Non-Af 74 (>60) 02/02/25 19:56 BUN/Creatinine Ratio 17.0 RATIO (10-20) 02/02/25 19:56 Glucose 195 mg/dL (70-99) H 02/02/25 19:56 Microbiology Microbiology: Microbiology 02/02/25 21:25 Urine, Clean Catch Legionella Antigen - Final 02/02/25 21:25 Urine, Clean Catch Streptococcus pneumoniae Antigen (M - Final Dosing Weight Weight used for dosin.5 kg Estimated Creatinine Clearance Estimated Creatinine Clearance: 79 Goal Trough Goal Trough: 15-20 mcg/mL Pharmacy Plan for Drug Dosing Pharmacy Plan for Drug Dosing: Pharmacy Service will continue to monitor and adjust dosing as required. Follow-Up Labs Follow-Up Labs: Trough: Vancomycin Date/Time Labs Ordered Labs to be done on [date and time ordered]: 02/04/25 @0932
[2025-02-03] MEDS: 0.9% Normal Saline (1000mL) 1,000 ML 100 ML IV (04:09)
[2025-02-03] MEDS: Piperacil/Tazobactam 3.375 GM in 0.9% Normal Saline (50mL MB+) 50 ML IV ×3 (05:54→22:43)
[2025-02-03 06:59] LABS: Hematocrit 32.6 % (40-54); Hemoglobin 10.5 g/dL (13.0-16.5); Immature Granulocytes Count 0.070 X10^3/uL (0.0-0.0); Mean Corp Hgb Conc 32.2 g/dL (32-36); Mean Corpuscular Volume 85.8 fL (80-94); Mean Platelet Vol. 9.5 fl (6.2-12.0); NRBC Flagged by Analyzer 0 % (0-5); POSITIVE COUNT YES; POSITIVE DIFFERENTIAL YES; RBC Distribution Width CV 13.7 % (11.6-14.6); RBC Distribution Width SD 43.1 fl (35.1-43.9); Red Blood Count 3.80 M/mm3 (4.6-6.2); White Blood Count 11.4 K/mm3 (4.4-11.0)
[2025-02-03 07:28] LABS: Differential Indicated SCAN CRITERIA MET
[2025-02-03 07:36] LABS: AST(SGOT) 15 U/L (<=37); Alanine Aminotransfer ALT/SGPT 9 U/L (<=46); Albumin, Serum 2.9 g/dL (3.4-4.8); Alkaline Phosphatase 106 U/L (40-129); Anion Gap 14 (5-15); BUN 19 mg/dL (4-19); BUN/Creat Ratio 16.9 RATIO (10-20); CRP 138.00 mg/L (0.0-3.0); Calcium,Total 8.3 mg/dL (7.6-11.0); Carbon Dioxide 18.1 mmol/L (21.0-32.0); Chloride 107 mmol/L (98-108); Estimated Creatinine Clearance 74.74 ml/min (50-250); Globulin 2.7 g/dL (2.2-4.2); Glucose 154 mg/dL (70-99); Magnesium 1.7 mg/dL (1.5-2.2); Potassium 4.2 mmol/L (3.3-5.1)
--- NOTE | 2025-02-03 09:56 | PCM.PN.HOSP ---
Subjective Subjective No issues overnight, maintaining oxygen saturations on 4 L nasal cannula Objective Data Objective Data Vital Signs: Vital Signs Temp Pulse Resp BP Pulse Ox O2 Del Method O2 Flow Rate 98.0 F 81 18 126/62 H 97 Nasal Cannula 4 02/03/25 08:00 02/03/25 08:00 02/03/25 08:00 02/03/25 08:00 02/03/25 08:00 02/03/25 08:00 02/03/25 08:00 Oxygen Flow Rate (L/min) 4 Oxygen Delivery Method Nasal Cannula Weight: 261 lb 3.964 oz Body Mass Index (BMI) 35.4 Intake & Output: Intake and Output for Last 24 Hours 02/02/25 02/03/25 02/04/25 03:59 03:59 03:59 Intake Total 3640 / 3640 100 / 100 Balance 3640 / 3640 100 / 100 Lab / Micro Data 02/03/25 06:31 02/03/25 06:31 Labs: Laboratory Results - last 24 hr 02/02/25 19:56: WBC 13.9 H, RBC 3.94 L, Hgb 10.9 L, Hct 33.5 L, MCV 85.0, MCH 27.7, MCHC 32.5, RDW Std Deviation 42.2, RDW Coeff of Nathaniel 13.6, Plt Count 203, MPV 9.4, Immature Gran % (Auto) 0.700, Neut % (Auto) 86.2 H, Lymph % (Auto) 3.6 L, [place] % (Auto) 8.7, Eos % (Auto) 0.6, Baso % (Auto) 0.2, Absolute Neuts (auto) 12.0 H, Absolute Lymphs (auto) 0.50 L, Nucleated RBC % 0, ESR 23 H, PT 17.3 H, INR 1.4, APTT 34.0, Sodium 141, Potassium 3.8, Chloride 104, Carbon Dioxide 22.4, Anion Gap 14, BUN 18, Creatinine 1.04, Estim Creat Clear Calc 79.39, Est GFR (MDRD) Non-Af 74, BUN/Creatinine Ratio 17.0, Glucose 195 H, Lactic Acid 3.1 H*, Calcium 8.7, Magnesium 0.9 L*, Total Bilirubin 0.50, AST 15, ALT 10, Alkaline Phosphatase 115, C-React Prot Ext Range 94.50 H, Total Protein 5.8 L, Albumin 3.5, Globulin 2.3, Albumin/Globulin Ratio 1.5 02/02/25 21:25: Urine Color Yellow, Urine Clarity Clear, Urine pH 5.0, Ur Specific [place] 1.015, Urine Protein 30 H, Urine Glucose (UA) 250 H, Urine Ketones Negative, Urine Occult Blood 25 H, Urine Nitrite Negative, Urine Bilirubin Negative, Urine Urobilinogen Normal, Ur Leukocyte Esterase Negative, Urine RBC 5-10 SEEN, Urine WBC 5-10 SEEN, Ur Squamous Epith Cells 0-5 SEEN, Urine Bacteria 1+, Urine Mucus 0 SEEN 02/03/25 00:35: Lactic Acid 1.6 02/03/25 01:48: POC Glucose 140 H 02/03/25 06:02: POC Glucose 148 H 02/03/25 06:31: WBC 11.4 H, RBC 3.80 L, Hgb 10.5 L, Hct 32.6 L, MCV 85.8, MCH 27.6, MCHC 32.2, RDW Std Deviation 43.1, RDW Coeff of Nathaniel 13.7, Plt Count , MPV 9.5, Immature Gran % (Auto) 0.600, Neut % (Auto) 83.8 H, Lymph % (Auto) 4.0 L, [place] % (Auto) 8.4, Eos % (Auto) 2.9, Baso % (Auto) 0.3, Absolute Neuts (auto) 9.5 H, Absolute Lymphs (auto) 0.46 L, Nucleated RBC % 0, Platelet Estimate ADEQUATE, Sodium 139, Potassium 4.2, Chloride 107, Carbon Dioxide 18.1 L, Anion Gap 14, BUN 19, Creatinine 1.10, Estim Creat Clear Calc 74.74, Est GFR (MDRD) Non-Af 69, BUN/Creatinine Ratio 16.9, Glucose 154 H, Hemoglobin A1c 6.7 H, Calcium 8.3, Magnesium 1.7, Total Bilirubin 0.61, AST 15, ALT 9, Alkaline Phosphatase 106, C-React Prot Ext Range 138.00 H, Total Protein 5.6 L, Albumin 2.9 L, Globulin 2.7, Albumin/Globulin Ratio 1.1 Micro: Microbiology 02/03/25 01:36 Mucosa - Nasopharyngeal Respiratory Panel (PCR) - Final 02/02/25 21:25 Urine, Clean Catch Legionella Antigen - Final 02/02/25 21:25 Urine, Clean Catch Streptococcus pneumoniae Antigen (M - Final Radiography Diagnostic Testing: Radiology Impression Brain CT 02/02/25 20:09 IMPRESSION: 1. No acute intracranial abnormality. 2. Mild-moderate volume loss and chronic microangiopathic changes. 3. Chronic paranasal sinus disease. Reading Location: [facility] Chest X-Ray 02/02/25 20:20 IMPRESSION: Pulmonary findings as above. Reading Location: [facility] Foot X-Ray 02/02/25 20:20 IMPRESSION: No acute osseous abnormality. Reading Location: [facility] Physical Exam Narrative General: Alert but drowsy, Oriented x1-2, Cooperative, No apparent distress HEENT: Atraumatic, PERRLA, EOMI, Normocephalic Oral: Moist Mucosa Neck: Supple, No JVD Lungs: Diminished, Normal air movement, No rhonchi, No wheeze, No rales Cardiovascular: Regular rate, Regular Rhythm, Normal S1, Normal S2, No murmurs Abdomen: Soft, Non Tender, Non-Distended, No Hepato-splenomegaly Extremities: No edema, Capillary Refill Less than 3 Seconds Skin: Right lateral foot redness, dressing intact Musculoskeletal: No Tenderness to Palpation of Joints or Extremities Neurological: No focal neurological deficits, Motor Exam 5/5 strength throughout, Sensory exam intact to light touch and pain Psych/Mental Status: Flat Assessment & Plan Assessment/Plan (1) Pneumonia: PLAN: Plan 1. Sepsis secondary to left sided pneumonia as well as diabetic foot ulcer on the left ? Continue with broad-spectrum antibiotics ? Appreciate podiatry's assistance ? Will wean oxygen as able ? Cultures are pending ? Magnesium is corrected with treatment overnight 2. Paroxysmal A-fib/history of AAA status post repair 2006/essential HTN/HLD/history of sick sinus syndrome status post pacemaker placement ? Continue with his home blood pressure medications ? Blood pressures appear stable ? Continue with cholesterol medications ? Will hold his home Eliquis for the possibility of surgery ? Echo on 02/12/2023 with an EF of 55 to 60% with mild MV insufficiency, he does have a history of aortic valve replacement 3. DM2 ? Hold his home oral right medications ? Continue with insulin ? Accu-Cheks ACHS ? Continue with sliding scale insulin ? Will monitor and make adjustments as necessary 4. GERD with a history of GI bleed ? He had been transitioned from Coumadin to Eliquis ? Will hold Eliquis in preparation for possible surgery ? Continue with PPI and Carafate 5. Dementia/anxiety/depression ? Stable, his dementia may be a little bit worse secondary to the infection ? Continue with his home medications 6. BPH with obstruction ? Continue with his Flomax ? Stable 7. Iron deficiency anemia ? Stable ? Continue to monitor ? Continue with iron supplementation DVT: Lovenox Charges/Coding Visit Charges Inpatient E&M: 52927 Subs Hosp L2
--- NOTE | 2025-02-03 10:01 | ART_ITS ---
Reason For Study Reason For Study: LLE Foot Wound Procedure A bilateral lower extremity continuous wave Doppler with analog waveform analysis,segmental pressures,and ankle brachial indexes without exercise. Left Segmental Pressures Left brachial= 139mmHg. Left posterior tibial artery = 146mmHg. Left dorsalis pedis artery = 110mmHg. Left digit = 36 mmHg. The left posterior tibial artery waveforms are monophasic. The left dorsalis pedis waveforms are biphasic. Right Segmental Pressures Right posterior tibial artery = >254mmHg. Right dorsalis pedis artery = 122mmHg. The right posterior tibial artery waveforms are triphasic. The right dorsalis pedis waveforms are biphasic. Indices The right ankle brachial index by the posterior tibial artery is N/C. The right ankle brachial index by the dorsalis pedis is 0.88. The left ankle brachial index by the posterior tibial artery is 1.05. The left ankle brachial index by the dorsalis pedis is 0.79. The left digital-brachial index is 0.26. VL/Lower Ext Art Exam w/o Exercis Interpretation Summary Right JOSTIN 0.88, moderate arterial insufficiency. Doppler/PVR waveforms of the r ight ankle normal at rest. Left JOSTIN 1.05, normal though may be artificially elevated. Doppler/PVR waveform s of the left leg mildly diminished infrapopliteal. TBI diminished. Ordering Physician: Kee Mejia Referring Physician: Kuldip Cosby Performed By: Giancarlo Loaiza RVT
[2025-02-03] MEDS: Vancomycin HCl 1,750 MG in 0.9% Normal Saline (500mL Bag) 500 ML 250 MG IV ×2 (10:08→20:59)
--- NOTE | 2025-02-03 11:19 | WOUNDNOTE ---
wound photo: left foot
--- NOTE | 2025-02-03 11:19 | WOUNDNOTE ---
wound photo: left foot
--- NOTE | 2025-02-03 15:07 | CASEMGMT ---
JACEY MASON in to discuss discharge planning with patient. Patient currently is at [facility]. Patient states he wishes to return to [facility]. Patient had no further questions or concerns. JACEY MASON sent updated clinicals to [facility] and confirmed that patient is LTC at facility. CM will continue to follow this patient and plan for a safe discharge.
--- NOTE | 2025-02-03 18:15 | PCM.CONS.GEN ---
Assessment & Plan Assessment/Plan (1) Cellulitis of left lower limb: (2) Acute osteomyelitis of metatarsal bone of left foot: (3) Diabetes mellitus with diabetic polyneuropathy: (4) Type 2 diabetes mellitus with foot ulcer: PLAN: Plan Evaluation performed. Reviewed diagnostic data. Clinically there is high concern and probability of osteomyelitis to the left 5th metatarsal as the ulcer probes right to the bone and there is significant cellulitis and nonviable tissue to the site. Further evaluation is medically necessary - MRI was ordered for further evaluation, however it is unclear if he will be able to get the MRI due to his pacemaker - I discussed with pharmacy order entry technician and they are going to check on this. The ulceration was debrided in selective fashion (nonexcisional) to remove nonviable tissue - this was completed down to and including fascia layer, the area debrided measured 1.5cm x 2cm. No anesthesia was needed due to patient's peripheral neuropathy. There was some minor bleeding, hemostasis achieved with gauze and pressure. A deep swab culture of the wound was obtained and sent to microbiology. Betadine and gauze dressing applied. Change daily. LEAS have been ordered and have been reviewed- PAD noted and vascular surgery has been consulted. Patient is on antibiotic therapy - and Infectious Disease is on consult. Discussed with patient possible further debridement and amputation of the 5th ray on his left foot - will await the MRI findings first (if he is able to obtain) - surgery is not urgent at this time - there is no gas, and likely has been present for some time. No weightbearing left foot. Keep offloaded at all times. Podiatry will continue to follow, thank you for consultation. HPI Consult Data Date of Consult: 02/03/25 HPI Narrative Reason for Consultation: Left foot ulcer and infection HPI Narrative: RICHARD ROY, is a 79 M who presents from nursing facility with multiple medical problems. Podiatry was consulted by hospitalist for wound and infection left foot. Patient's was present in room and much of the history was obtained from her as well as from chart review as the patient appears to be poor historian. Patient's relates she was called by the nursing facility patient resides in about 3-4 weeks ago and states she was informed he had a wound on his left foot and it was being cared for by the nursing facility. She relates the wound doctor saw the wound just this week and seemed to have no concerns. Patient does have history of right 1st toe infection and had previous amputation by Dr. Obregon. Patient does not continue to follow with podiatry for regular foot care. Patient has no pain to his feet, he has peripheral neuropathy. He has diabetes, history of heart disease and has a pacemaker. [facility] Medical History History of stress test History of echocardiogram Cardiology follow-up encounter Uses wheelchair Difficulty swallowing History of ulceration History of GI bleed History of renal disease Prostate disease Pulmonary embolism High cholesterol Atrial tachycardia Anxiety Depression Kidney stones GI bleed Non-smoker Atrial fibrillation AAA (abdominal aortic aneurysm) Dementia Bacteremia Subtherapeutic international normalized ratio (INR) UTI (urinary tract infection) Presence of cardiac pacemaker Sick sinus syndrome Anemia Second degree AV block, Mobitz type II Supratherapeutic INR Syncope Acute encephalopathy Weakness Confusion History of pulmonary embolism NSTEMI, initial episode of care Valvular heart disease Amputation of right great toe Leukocytosis Hyperkalemia COVID-19 Ureterolithiasis Diabetes Aortic aneurysm without rupture HTN (hypertension) Lactic acidosis Upper gastrointestinal bleed Diabetic neuropathy Osteomyelitis Ulcer of right great toe due to diabetes mellitus Pulmonary emboli HLD (hyperlipidemia) RBBB (right bundle 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) Home Medications ?Medication ?Instructions ?Recorded ?Last Taken ?Type losartan 50 mg tablet 50 mg PO DAILY blood pressure 03/24/18 06/01/24 History atorvastatin 40 mg tablet 40 mg PO QHS cholesterol 05/22/18 05/31/24 History tamsulosin 0.4 mg capsule 0.4 mg PO QHS PROSTATE 03/02/22 05/31/24 History cholecalciferol (vitamin D3) 1,250 1,250 mcg PO MO SUPPLEMENT 01/21/23 06/01/24 History mcg (50,000 unit) tablet metformin 1,000 mg tablet 1,000 mg PO BID DM 01/21/23 06/01/24 History insulin glargine 100 unit/mL (3 15 unit (0.15 mL) subcut DAILY 01/26/23 06/01/24 Rx mL) subcutaneous pen (Lantus diabetes #15 mL Solostar U-100 Insulin) pantoprazole 40 mg tablet,delayed 40 mg PO BID #60 tabs 02/05/23 06/01/24 Rx release sucralfate 1 gram tablet 1 g PO 0700,1100,1600 #90 tabs 02/05/23 06/01/24 Rx melatonin 3 mg tablet 3 mg PO QHS Insomnia 02/10/23 02/10/23 History memantine 10 mg tablet 10 mg PO BID #0 tabs 02/13/23 06/01/24 Rx bisacodyl 10 mg rectal suppository 10 mg SC DAILY PRN constipation 05/30/23 Unknown History loperamide 2 mg capsule 2 mg PO Q4H PRN loose stool 05/30/23 Unknown History (Anti-Diarrheal (loperamide)) acetaminophen 325 mg tablet 650 mg PO .q12hrs PAIN AND FEVER 10/07/23 06/01/24 History ferrous sulfate 325 mg (65 mg 325 mg PO DAILY 10/07/23 06/01/24 History iron) tablet apixaban 5 mg tablet (Eliquis) 5 mg PO BID #60 tabs 03/03/24 05/30/24 Rx paroxetine HCl 30 mg tablet 30 mg PO QDAY 04/07/24 06/01/24 History ipratropium 0.5 mg-albuterol 3 mg 3 ml inhalation Q4H PRN shortness 02/02/25 Unknown History (2.5 mg base)/3 mL nebulization of breath soln metoprolol succinate 25 mg capsule 25 mg PO DAILY 02/02/25 Unknown History sprinkle, ext. release 24 hr ([place]sp[place] Sprinkle) Allergy/AdvReac Type Severity Reaction Status Date / Time propofol AdvReac Other Verified 02/02/25 19:42 Family History Mother Heart disease Diabetes Hypertension Father Heart disease Surgical History History of AAA (abdominal aortic aneurysm) repair History of foot surgery Hx of abdominal surgery H/O aortic valve repair History of thoracic aortic aneurysm repair Social History housing: senior care current occupational status: retired Smoking Status: Never smoker alcohol intake: never substance use type: does not use Physical Exam Const alert and no apparent distress Constitutional Narrative: There is ulceration to the lateral left 5th metatarsal head and down to bone, there is significant nonviable and some necrotic tissue to the site, there is significant cellulitis localized to the site extending to the dorsal and lateral foot, there is some maloder, there is no visible abscess, no crepitus. No other open wounds bilateral foot. 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 There is chronic peripheral neuropathy bilateral foot. LEAS were reviewed and noted to have bilateral PAD - no evidence of acute ischemia bilateral foot. No pain to foot or ankle bilateral. Lab / Micro Data 02/03/25 06:31 02/03/25 06:31 Labs: Laboratory Results - last 24 hr 02/02/25 19:56: WBC 13.9 H, RBC 3.94 L, Hgb 10.9 L, Hct 33.5 L, MCV 85.0, MCH 27.7, MCHC 32.5, RDW Std Deviation 42.2, RDW Coeff of Nathaniel 13.6, Plt Count 203, MPV 9.4, Immature Gran % (Auto) 0.700, Neut % (Auto) 86.2 H, Lymph % (Auto) 3.6 L, [place] % (Auto) 8.7, Eos % (Auto) 0.6, Baso % (Auto) 0.2, Absolute Neuts (auto) 12.0 H, Absolute Lymphs (auto) 0.50 L, Nucleated RBC % 0, ESR 23 H, PT 17.3 H, INR 1.4, APTT 34.0, Sodium 141, Potassium 3.8, Chloride 104, Carbon Dioxide 22.4, Anion Gap 14, BUN 18, Creatinine 1.04, Estim Creat Clear Calc 79.39, Est GFR (MDRD) Non-Af 74, BUN/Creatinine Ratio 17.0, Glucose 195 H, Lactic Acid 3.1 H*, Calcium 8.7, Magnesium 0.9 L*, Total Bilirubin 0.50, AST 15, ALT 10, Alkaline Phosphatase 115, C-React Prot Ext Range 94.50 H, Total Protein 5.8 L, Albumin 3.5, Globulin 2.3, Albumin/Globulin Ratio 1.5 02/02/25 21:25: Urine Color Yellow, Urine Clarity Clear, Urine pH 5.0, Ur Specific [place] 1.015, Urine Protein 30 H, Urine Glucose (UA) 250 H, Urine Ketones Negative, Urine Occult Blood 25 H, Urine Nitrite Negative, Urine Bilirubin Negative, Urine Urobilinogen Normal, Ur Leukocyte Esterase Negative, Urine RBC 5-10 SEEN, Urine WBC 5-10 SEEN, Ur Squamous Epith Cells 0-5 SEEN, Urine Bacteria 1+, Urine Mucus 0 SEEN 02/03/25 00:35: Lactic Acid 1.6 02/03/25 01:48: POC Glucose 140 H 02/03/25 06:02: POC Glucose 148 H 02/03/25 06:31: WBC 11.4 H, RBC 3.80 L, Hgb 10.5 L, Hct 32.6 L, MCV 85.8, MCH 27.6, MCHC 32.2, RDW Std Deviation 43.1, RDW Coeff of Nathaniel 13.7, Plt Count , MPV 9.5, Immature Gran % (Auto) 0.600, Neut % (Auto) 83.8 H, Lymph % (Auto) 4.0 L, [place] % (Auto) 8.4, Eos % (Auto) 2.9, Baso % (Auto) 0.3, Absolute Neuts (auto) 9.5 H, Absolute Lymphs (auto) 0.46 L, Nucleated RBC % 0, Platelet Estimate ADEQUATE, ESR 14, Sodium 139, Potassium 4.2, Chloride 107, Carbon Dioxide 18.1 L, Anion Gap 14, BUN 19, Creatinine 1.10, Estim Creat Clear Calc 74.74, Est GFR (MDRD) Non-Af 69, BUN/Creatinine Ratio 16.9, Glucose 154 H, Hemoglobin A1c 6.7 H, Calcium 8.3, Magnesium 1.7, Total Bilirubin 0.61, AST 15, ALT 9, Alkaline Phosphatase 106, C-React Prot Ext Range 138.00 H, Total Protein 5.6 L, Albumin 2.9 L, Globulin 2.7, Albumin/Globulin Ratio 1.1 02/03/25 11:15: POC Glucose 140 H 02/03/25 16:26: POC Glucose 154 H Micro: Microbiology 02/03/25 01:36 Mucosa - Nasopharyngeal Respiratory Panel (PCR) - Final 02/02/25 21:25 Urine, Clean Catch Legionella Antigen - Final 02/02/25 21:25 Urine, Clean Catch Streptococcus pneumoniae Antigen (M - Final Imaging Radiology Impression Brain CT 02/02/25 20:09 IMPRESSION: 1. No acute intracranial abnormality. 2. Mild-moderate volume loss and chronic microangiopathic changes. 3. Chronic paranasal sinus disease. Reading Location: [facility] Chest X-Ray 02/02/25 20:20 IMPRESSION: Pulmonary findings as above. Reading Location: [facility] Foot X-Ray 02/02/25 20:20 IMPRESSION: No acute osseous abnormality. Reading Location: [facility] Extremity Arterial Study 02/03/25 10:01 Interpretation Summary Right JOSTIN 0.88, moderate arterial insufficiency. Doppler/PVR waveforms of the right ankle normal at rest. Left JOSTIN 1.05, normal though may be artificially elevated. Doppler/PVR waveforms of the left leg mildly diminished infrapopliteal. TBI diminished. Ordering Physician: Kee Mejia Referring Physician: Kuldip Cosby Performed By: Giancarlo Loaiza, RVT
[2025-02-03] MEDS: Memantine Hydrochloride 10 MG Tablet PO (20:48)
[2025-02-03] MEDS: MELATONIN 3 MG TABLET PO (20:48)
[2025-02-04] VITALS (13 sets, daily range): BP systolic 134–225; BP diastolic 52–144; PULSE 60–87; RESP 16–20; TEMP 36.6–37.7; O2SAT 92–100; BMI 35.2
[2025-02-04 02:13] LABS: Staph aureus DNA By PCR POSITIVE (Negative)
[2025-02-04] MEDS: Piperacil/Tazobactam 3.375 GM in 0.9% Normal Saline (50mL MB+) 50 ML IV ×3 (05:09→22:34)
[2025-02-04 06:14] LABS: Hematocrit 31.0 % (40-54); Hemoglobin 10.1 g/dL (13.0-16.5); Immature Granulocytes Count 0.100 X10^3/uL (0.0-0.0); Mean Corp Hgb Conc 32.6 g/dL (32-36); Mean Corpuscular Volume 85.4 fL (80-94); Mean Platelet Vol. 9.3 fl (6.2-12.0); NRBC Flagged by Analyzer 0 % (0-5); Platelet Count 193 K/mm3 (150-450); RBC Distribution Width CV 13.7 % (11.6-14.6); RBC Distribution Width SD 43.2 fl (35.1-43.9); Red Blood Count 3.63 M/mm3 (4.6-6.2); White Blood Count 11.4 K/mm3 (4.4-11.0)
[2025-02-04 06:52] LABS: Anion Gap 9 (5-15); BUN 27 mg/dL (4-19); BUN/Creat Ratio 17.8 RATIO (10-20); Calcium,Total 8.3 mg/dL (7.6-11.0); Carbon Dioxide 23.0 mmol/L (21.0-32.0); Chloride 110 mmol/L (98-108); Estimated Creatinine Clearance 55.04 ml/min (50-250); Glucose 170 mg/dL (70-99); Potassium 3.9 mmol/L (3.3-5.1)
--- NOTE | 2025-02-04 07:30 | EX.PCM.CON.S ---
Assessment & Plan Assessment/Plan (1) Type 2 diabetes mellitus with foot ulcer: (2) PAD (peripheral artery disease): PLAN: Plan Arterial study suggested some degree of PAD though JOSTIN and waveforms were somewhat conflicting. Will plan for CTA to further evaluate tomorrow as long as kidney function is stable. OK for podiatry intervention as needed for infection control. Anticipate angiogram with possible intervention next week (could be done on an outpatient basis), but will await CTA results to confirm. Findings and plan were discussed with both patient and his , both are content with current plan. Both were agreeable to angiogram if needed. HPI Consult Data Date of Consult: 02/04/25 HPI Narrative HPI Narrative: RICHARD ROY, is a 79 M who presented to the [facility] ER on 02/02/25 with new cough, fever, lethargy/fatigue, and altered mental status and was admitted for management of sepsis secondary to pneumonia and L foot diabetic ulceration and started on IV antibiotics. He has had this L foot ulceration for at least 4 weeks and it has been managed by SNF where he resides. He is diabetic with peripheral neuropathy. He was evaluated by podiatry Dr. Mejia; wound probes to bone and there is concern for infection/osteomyelitis. MRI is pending but plan is for possible operative debridement/amputation to manage. He had arterial study 02/03/25 which demonstrated L JOSTIN PT 1.05 with monophasic waveforms and L JOSTIN DP 0.79 and TBI 0.26. He has history of dementia; history was supplemented by his as well. No known history of prior vascular intervention. 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 Obregon, healed without issue from that. He is on Eliquis for Afib. [facility] Medical History (Updated 02/04/25 @ 19:03 by DENIA Baird) MRSA (methicillin resistant staph aureus) culture positive History of stress test History of echocardiogram Cardiology follow-up encounter Uses wheelchair Difficulty swallowing History of ulceration History of GI bleed History of renal disease Prostate disease Pulmonary embolism High cholesterol Atrial tachycardia Anxiety Depression Kidney stones GI bleed Non-smoker Atrial fibrillation AAA (abdominal aortic aneurysm) Dementia Bacteremia Subtherapeutic international normalized ratio (INR) UTI (urinary tract infection) Presence of cardiac pacemaker Sick sinus syndrome Anemia Second degree AV block, Mobitz type II Supratherapeutic INR Syncope Acute encephalopathy Weakness Confusion History of pulmonary embolism NSTEMI, initial episode of care Valvular heart disease Amputation of right great toe Leukocytosis Hyperkalemia COVID-19 Ureterolithiasis Diabetes Aortic aneurysm without rupture HTN (hypertension) Lactic acidosis Upper gastrointestinal bleed Diabetic neuropathy Osteomyelitis Ulcer of right great toe due to diabetes mellitus Pulmonary emboli HLD (hyperlipidemia) RBBB (right bundle 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) Home Medications ?Medication ?Instructions ?Recorded ?Last Taken ?Type losartan 50 mg tablet 50 mg PO DAILY blood pressure 03/24/18 06/01/24 History atorvastatin 40 mg tablet 40 mg PO QHS cholesterol 05/22/18 05/31/24 History tamsulosin 0.4 mg capsule 0.4 mg PO QHS PROSTATE 03/02/22 05/31/24 History cholecalciferol (vitamin D3) 1,250 1,250 mcg PO MO SUPPLEMENT 01/21/23 06/01/24 History mcg (50,000 unit) tablet metformin 1,000 mg tablet 1,000 mg PO BID DM 01/21/23 06/01/24 History insulin glargine 100 unit/mL (3 15 unit (0.15 mL) subcut DAILY 01/26/23 06/01/24 Rx mL) subcutaneous pen (Lantus diabetes #15 mL Solostar U-100 Insulin) pantoprazole 40 mg tablet,delayed 40 mg PO BID #60 tabs 02/05/23 06/01/24 Rx release sucralfate 1 gram tablet 1 g PO 0700,1100,1600 #90 tabs 02/05/23 06/01/24 Rx melatonin 3 mg tablet 3 mg PO QHS Insomnia 02/10/23 02/10/23 History memantine 10 mg tablet 10 mg PO BID #0 tabs 02/13/23 06/01/24 Rx bisacodyl 10 mg rectal suppository 10 mg OK DAILY PRN constipation 05/30/23 Unknown History loperamide 2 mg capsule 2 mg PO Q4H PRN loose stool 05/30/23 Unknown History (Anti-Diarrheal (loperamide)) acetaminophen 325 mg tablet 650 mg PO .q12hrs PAIN AND FEVER 10/07/23 06/01/24 History ferrous sulfate 325 mg (65 mg 325 mg PO DAILY 10/07/23 06/01/24 History iron) tablet apixaban 5 mg tablet (Eliquis) 5 mg PO BID #60 tabs 03/03/24 05/30/24 Rx paroxetine HCl 30 mg tablet 30 mg PO QDAY 04/07/24 06/01/24 History ipratropium 0.5 mg-albuterol 3 mg 3 ml inhalation Q4H PRN shortness 02/02/25 Unknown History (2.5 mg base)/3 mL nebulization of breath soln metoprolol succinate 25 mg capsule 25 mg PO DAILY 02/02/25 Unknown History sprinkle, ext. release 24 hr ([place] Sprinkle) Allergy/AdvReac Type Severity Reaction Status Date / Time propofol AdvReac Other Verified 02/02/25 19:42 Family History Mother Heart disease Diabetes Hypertension Father Heart disease Surgical History History of AAA (abdominal aortic aneurysm) repair History of foot surgery Hx of abdominal surgery H/O aortic valve repair History of thoracic aortic aneurysm repair Social History housing: senior living current occupational status: retired Smoking Status: Never smoker alcohol intake: never substance use type: does not use Physical Exam Const alert, oriented x3 and no apparent distress General Appearance: cooperative and comfortable HEENT normocephalic, head/scalp atraumatic, hearing grossly normal bilaterally, external ears normal and external nose normal Eyes General Eye: normal appearance of both eyes Neck General: normal visual inspection and trachea midline Resp normal respiratory effort, no retractions and no use of accessory muscles Effort and Inspection: able to speak in complete sentences; Negative for labored, grunting, stridor or audible wheezes Extremity Extremity Narrative: L DP signal biphasic, L PT monophasic; L foot generally pink and warm. L lateral foot wound with overlying eschar, erythema within Skin Trauma: no lacerations or abrasions Neuro moves all extremities Speech: speech normal Psych mental status grossly normal Attitude: calm Speech: normal speech Lab / Micro Data 02/04/25 05:53 02/04/25 05:53 Labs: Laboratory Results - last 24 hr 02/03/25 06:31: ESR 14, Sodium 139, Potassium 4.2, Chloride 107, Carbon Dioxide 18.1 L, Anion Gap 14, BUN 19, Creatinine 1.10, Estim Creat Clear Calc 74.74, Est GFR (MDRD) Non-Af 69, BUN/Creatinine Ratio 16.9, Glucose 154 H, Hemoglobin A1c 6.7 H, Calcium 8.3, Magnesium 1.7, Total Bilirubin 0.61, AST 15, ALT 9, Alkaline Phosphatase 106, C-React Prot Ext Range 138.00 H, Total Protein 5.6 L, Albumin 2.9 L, Globulin 2.7, Albumin/Globulin Ratio 1.1 02/03/25 11:15: POC Glucose 140 H 02/03/25 16:26: POC Glucose 154 H 02/03/25 18:00: S.aureus Protein A PCR POSITIVE H, MRSA (PCR) POSITIVE H 02/03/25 21:03: POC Glucose 170 H 02/04/25 05:53: WBC 11.4 H, RBC 3.63 L, Hgb 10.1 L, Hct 31.0 L, MCV 85.4, MCH 27.8, MCHC 32.6, RDW Std Deviation 43.2, RDW Coeff of Nathaniel 13.7, Plt Count 193, MPV 9.3, Immature Gran % (Auto) 0.900, Neut % (Auto) 80.0 H, Lymph % (Auto) 5.3 L, [place] % (Auto) 9.4, Eos % (Auto) 4.1, Baso % (Auto) 0.3, Absolute Neuts (auto) 9.2 H, Absolute Lymphs (auto) 0.61 L, Nucleated RBC % 0, Sodium 142, Potassium 3.9, Chloride 110 H, Carbon Dioxide 23.0, Anion Gap 9, BUN 27 H, Creatinine 1.49 H, Estim Creat Clear Calc 55.04, Est GFR (MDRD) Non-Af 48 L, BUN/Creatinine Ratio 17.8, Glucose 170 H, Calcium 8.3 02/04/25 06:19: POC Glucose 169 H Micro: Microbiology 02/03/25 01:36 Mucosa - Nasopharyngeal Respiratory Panel (PCR) - Final Imaging Radiology Impression Extremity Arterial Study 02/03/25 10:01 Interpretation Summary Right JOSTIN 0.88, moderate arterial insufficiency. Doppler/PVR waveforms of the right ankle normal at rest. Left JOSTIN 1.05, normal though may be artificially elevated. Doppler/PVR waveforms of the left leg mildly diminished infrapopliteal. TBI diminished. Ordering Physician: Kee Mejia Referring Physician: Kuldip Cosby Performed By: Giancarlo Loaiza RVT Charges/Coding Visit Charges Inpatient E&M: 56443 Init Hosp L2
--- NOTE | 2025-02-04 09:02 | PCM.PN.HOSP ---
Subjective Subjective No issues overnight, awaiting MRI of his left foot Objective Data Objective Data Vital Signs: Vital Signs Temp Pulse Resp BP Pulse Ox O2 Del Method O2 Flow Rate 98.6 F 60 20 H 141/60 H 94 Room Air 2 02/04/25 02:36 02/04/25 04:25 02/04/25 02:36 02/04/25 02:36 02/04/25 07:34 02/04/25 07:34 02/03/25 23:00 Oxygen Flow Rate (L/min) 2 Oxygen Delivery Method Room Air Weight: 259 lb 14.8 oz Body Mass Index (BMI) 35.2 Intake & Output: Intake and Output for Last 24 Hours 02/03/25 02/04/25 02/05/25 03:59 03:59 03:59 Intake Total 3640 / 3640 2570 / 2570 50 / 50 Output Total 750 / 750 300 / 300 Balance 3640 / 3640 1820 / 1820 -250 / -250 Lab / Micro Data 02/04/25 05:53 02/04/25 05:53 Labs: Laboratory Results - last 24 hr 02/03/25 06:31: ESR 14 02/03/25 11:15: POC Glucose 140 H 02/03/25 16:26: POC Glucose 154 H 02/03/25 18:00: S.aureus Protein A PCR POSITIVE H, MRSA (PCR) POSITIVE H 02/03/25 21:03: POC Glucose 170 H 02/04/25 05:53: WBC 11.4 H, RBC 3.63 L, Hgb 10.1 L, Hct 31.0 L, MCV 85.4, MCH 27.8, MCHC 32.6, RDW Std Deviation 43.2, RDW Coeff of Nathaniel 13.7, Plt Count 193, MPV 9.3, Immature Gran % (Auto) 0.900, Neut % (Auto) 80.0 H, Lymph % (Auto) 5.3 L, [place] % (Auto) 9.4, Eos % (Auto) 4.1, Baso % (Auto) 0.3, Absolute Neuts (auto) 9.2 H, Absolute Lymphs (auto) 0.61 L, Nucleated RBC % 0, Sodium 142, Potassium 3.9, Chloride 110 H, Carbon Dioxide 23.0, Anion Gap 9, BUN 27 H, Creatinine 1.49 H, Estim Creat Clear Calc 55.04, Est GFR (MDRD) Non-Af 48 L, BUN/Creatinine Ratio 17.8, Glucose 170 H, Calcium 8.3 02/04/25 06:19: POC Glucose 169 H Micro: Microbiology 02/03/25 01:36 Mucosa - Nasopharyngeal Respiratory Panel (PCR) - Final 02/02/25 21:25 Urine, Clean Catch Legionella Antigen - Final 02/02/25 21:25 Urine, Clean Catch Streptococcus pneumoniae Antigen (M - Final Radiography Diagnostic Testing: Radiology Impression Extremity Arterial Study 02/03/25 10:01 Interpretation Summary Right JOSTIN 0.88, moderate arterial insufficiency. Doppler/PVR waveforms of the right ankle normal at rest. Left JOSTIN 1.05, normal though may be artificially elevated. Doppler/PVR waveforms of the left leg mildly diminished infrapopliteal. TBI diminished. Ordering Physician: Kee Mejia Referring Physician: Kuldip Cosby Performed By: Giancarlo Loaiza RVT Physical Exam Narrative General: Alert but drowsy, Oriented x1-2, Cooperative, No apparent distress HEENT: Atraumatic, PERRLA, EOMI, Normocephalic Oral: Moist Mucosa Neck: Supple, No JVD Lungs: Diminished, Normal air movement, No rhonchi, No wheeze, No rales Cardiovascular: Regular rate, Regular Rhythm, Normal S1, Normal S2, No murmurs Abdomen: Soft, Non Tender, Non-Distended, No Hepato-splenomegaly Extremities: No edema, Capillary Refill Less than 3 Seconds Skin: Right lateral foot redness, dressing intact Musculoskeletal: No Tenderness to Palpation of Joints or Extremities Neurological: No focal neurological deficits, Motor Exam 5/5 strength throughout, Sensory exam intact to light touch and pain Psych/Mental Status: Flat Assessment & Plan Assessment/Plan (1) Pneumonia: PLAN: Plan 1. Sepsis secondary to left sided pneumonia as well as diabetic foot ulcer on the left ? Continue with broad-spectrum antibiotics ? Appreciate podiatry's assistance ? Will wean oxygen as able ? Cultures are pending ? MRI is pending read ? JOSTIN on the right is 0.88 with a left JOSTIN of 1.05, podiatry is consulted vascular surgery 2. Paroxysmal A-fib/history of AAA status post repair 2006/essential HTN/HLD/history of sick sinus syndrome status post pacemaker placement ? Continue with his home blood pressure medications ? Blood pressures appear stable ? Continue with cholesterol medications ? Will hold his home Eliquis for the possibility of surgery ? Echo on 02/12/2023 with an EF of 55 to 60% with mild MV insufficiency, he does have a history of aortic valve replacement 3. DM2 ? Hold his home oral medications ? Continue with insulin ? Accu-Cheks ACHS ? Continue with sliding scale insulin ? Will monitor and make adjustments as necessary 4. GERD with a history of GI bleed ? He had been transitioned from Coumadin to Eliquis ? Will hold Eliquis in preparation for possible surgery ? Continue with PPI and Carafate 5. Dementia/anxiety/depression ? Stable, his dementia may be a little bit worse secondary to the infection ? Continue with his home medications 6. BPH with obstruction ? Continue with his Flomax ? Stable 7. Iron deficiency anemia ? Stable ? Continue to monitor ? Continue with iron supplementation DVT: Lovenox Charges/Coding Visit Charges Inpatient E&M: 54575 Subs Hosp L2
[2025-02-04] MEDS: Vancomycin Trough/Random Due 1 LAB MC ×2 (09:59)
[2025-02-04] MEDS: 0.9% Normal Saline (1000mL) 1,000 ML 75 ML IV (09:59)
[2025-02-04] MEDS: Memantine Hydrochloride 10 MG Tablet PO ×2 (10:01→22:14)
[2025-02-04] MEDS: Metoprolol(XL)Succ 25 MG Tablet PO (10:01)
[2025-02-04] MEDS: Insulin Glargine-YFGN 100 UNIT/ML Pen 15 UNIT SC (10:05)
--- NOTE | 2025-02-04 10:18 | WOUNDNOTE ---
wound photo: left foot
--- NOTE | 2025-02-04 10:21 | WOUNDNOTE ---
wound photo: left foot
[2025-02-04 10:37] LABS: Vancomycin, Trough Level 21.4 ug/mL (5.0-15.0)
--- NOTE | 2025-02-04 10:52 | PCM.RX.CS ---
Consult Antibiotic Management Pharmacy has been consulted to manage selected antibiotic: Vancomycin Type of Intervention Type of Consult: Follow-up Labs Labs: Sodium 142 mmol/L (133-145) 02/04/25 05:53 Potassium 3.9 mmol/L (3.3-5.1) 02/04/25 05:53 Chloride 110 mmol/L (98-108) H 02/04/25 05:53 Carbon Dioxide 23.0 mmol/L (21.0-32.0) 02/04/25 05:53 Anion Gap 9 (5-15) 02/04/25 05:53 BUN 27 mg/dL (4-19) H 02/04/25 05:53 Creatinine 1.49 mg/dL (0.70-1.20) H 02/04/25 05:53 Est GFR (MDRD) Non-Af 48 (>60) L 02/04/25 05:53 BUN/Creatinine Ratio 17.8 RATIO (10-20) 02/04/25 05:53 Glucose 170 mg/dL (70-99) H 02/04/25 05:53 Vancomycin Trough 21.4 ug/mL (5.0-15.0) H 02/04/25 09:00 Microbiology Microbiology: Microbiology 02/03/25 01:36 Mucosa - Nasopharyngeal Respiratory Panel (PCR) - Final 02/02/25 21:25 Urine, Clean Catch Legionella Antigen - Final 02/02/25 21:25 Urine, Clean Catch Streptococcus pneumoniae Antigen (M - Final Goal Trough Goal Trough: 15-20 mcg/mL Pharmacy Plan for Drug Dosing Pharmacy Plan for Drug Dosing: VANCOMYCIN LEVEL RECEIVED Current Vancomycin Dose: 1750mg IV Q12hr Number of Doses Received: 3 Vancomycin Level: 21.4 Hours Since Last Dose: 12hr Renal Function: SCr 1.49/ CrCl 55 mL/min Renal Function Trend: SCr has increased by ~0.5 since starting vancomycin Lab/Micro: cultures pending Vancomycin Plan/Comments: patient had a trough drawn which resulted in a value of 21.4 (goal 15-20). Since trough is >20, will stop vancomycin doses and recheck a trough in 12 hours. Once trough is below 20, we will resume vancomycin dosing. Pending Level: 02/04/25 @2100 Pharmacy Service will continue to monitor and adjust dosing as required.
--- NOTE | 2025-02-04 12:44 | CASEMGMT ---
Discharge Planning Updates sent to [facility]. Tamika Encinas DC Planning Asst
--- NOTE | 2025-02-04 14:30 | MRI_ITS ---
PROCEDURE: LOWER EXT/NO JT/W/O 02/04/2025 REASON FOR EXAM: OSTEOMYELITIS LEFT 5TH METATARSAL TECHNIQUE: LOWER EXT/NO JT/W/O Multiplanar and multisequence images were obtained without IV contrast administration. COMPARISON: COMPARISON : February 02, 2025 FINDINGS: Image quality is degraded by motion artifact Bone Marrow: No abnormal bone marrow edema is seen in the forefoot. The cortex is intact. In particular, there is no abnormal signal within the 5th metatarsal. Soft Tissues: Of the plantar aspect of the 5th metatarsal head there is a tiny ulcer estimated to measure 7 mm x 4 mm. Additionally, there is edema of the forefoot particularly the dorsal forefoot. No drainable collection seen. Ligaments and Tendons: Degraded by motion artifact. Grossly intact. MRI/Lower Ext/No Jt/w/o IMPRESSION: 1. Soft tissue edema of the forefoot. Possible edema/ulcer at the plantar asp ect of the forefoot deep to the 5th metatarsal head. Recommend direct inspection. Cellulitis should be considered. 2. No finding of osteomyelitis at this time. Reading Location: [id number]
--- NOTE | 2025-02-04 15:37 | PN_ITS ---
Subjective Subjective Patient was seen today for follow up on left foot. He is sitting up in chair watching TV, no new complaints. No complaints of f/c/n/v. Objective Data Objective Data Vital Signs: Vital Signs Temp Pulse Resp BP Pulse Ox O2 Del Method O2 Flow Rate 97.8 F 60 17 144/58 H 99 Nasal Cannula 2 02/04/25 09:42 02/04/25 10:01 02/04/25 09:42 02/04/25 09:42 02/04/25 09:42 02/04/25 09:46 02/04/25 13:00 Oxygen Flow Rate (L/min) 2 Oxygen Delivery Method Nasal Cannula Weight: 117.9 kg Body Mass Index (BMI) 35.2 Intake & Output: Intake and Output for Last 24 Hours 02/02/25 02/03/25 02/04/25 23:59 23:59 23:59 Intake Total 2100 / 2100 4060 / 4060 1125.83 / 1125.83 Output Total 750 / 750 700 / 700 Balance 2100 / 2100 3310 / 3310 425.83 / 425.83 Lab / Micro Data 02/04/25 05:53 02/04/25 05:53 Labs: Laboratory Results - last 24 hr 02/03/25 16:26: POC Glucose 154 H 02/03/25 18:00: S.aureus Protein A PCR POSITIVE H, MRSA (PCR) POSITIVE H 02/03/25 21:03: POC Glucose 170 H 02/04/25 05:53: WBC 11.4 H, RBC 3.63 L, Hgb 10.1 L, Hct 31.0 L, MCV 85.4, MCH 27.8, MCHC 32.6, RDW Std Deviation 43.2, RDW Coeff of Nathaniel 13.7, Plt Count 193, MPV 9.3, Immature Gran % (Auto) 0.900, Neut % (Auto) 80.0 H, Lymph % (Auto) 5.3 L, [place] % (Auto) 9.4, Eos % (Auto) 4.1, Baso % (Auto) 0.3, Absolute Neuts (auto) 9.2 H, Absolute Lymphs (auto) 0.61 L, Nucleated RBC % 0, Sodium 142, Potassium 3.9, Chloride 110 H, Carbon Dioxide 23.0, Anion Gap 9, BUN 27 H, Creatinine 1.49 H, Estim Creat Clear Calc 55.04, Est GFR (MDRD) Non-Af 48 L, BUN/Creatinine Ratio 17.8, Glucose 170 H, Calcium 8.3 02/04/25 06:19: POC Glucose 169 H 02/04/25 09:00: Vancomycin Trough 21.4 H 02/04/25 11:25: POC Glucose 171 H Micro: Microbiology 02/03/25 01:36 Mucosa - Nasopharyngeal Respiratory Panel (PCR) - Final 02/02/25 21:25 Urine, Clean Catch Legionella Antigen - Final 02/02/25 21:25 Urine, Clean Catch Streptococcus pneumoniae Antigen (M - Final Radiography Diagnostic Testing: Radiology Impression Extremity Arterial Study 02/03/25 10:01 Interpretation Summary Right JOSTIN 0.88, moderate arterial insufficiency. Doppler/PVR waveforms of the right ankle normal at rest. Left JOSTIN 1.05, normal though may be artificially elevated. Doppler/PVR waveforms of the left leg mildly diminished infrapopliteal. TBI diminished. Ordering Physician: Kee Mejia Referring Physician: Kuldip Cosby Performed By: Giancarlo Loaiza RVT Physical Exam Const alert and no apparent distress Constitutional Narrative: Dressing left foot is clean, dry and intact. Reviewed today's left foot wound photos - eschar noted to 5th MTPJ, there is continued erythema and edema which appears stable at this time - no acute findings. Assessment & Plan Assessment/Plan (1) Cellulitis of left lower limb: (2) Acute osteomyelitis of metatarsal bone of left foot: (3) Diabetes mellitus with diabetic polyneuropathy: (4) Type 2 diabetes mellitus with foot ulcer: PLAN: Plan Reviewed diagnostic data. Clinically there is high concern and probability of osteomyelitis to the left 5th metatarsal as the ulcer probes right to the bone and there is cellulitis and nonviable tissue to the site. Further evaluation is medically necessary - MRI was ordered for further evaluation - discussed with MRI dept today and patient can get MRI this afternoon. LEAS have been obtained and have been reviewed- PAD noted and vascular surgery has been consulted. Patient is on antibiotic therapy. Discussed with patient possible further debridement and amputation of the 5th ray on his left foot - will await the MRI findings first and vascular surgery input. No weightbearing left foot. Keep offloaded at all times. Podiatry will continue to follow. Also discussed wound status with wound nurse.
[2025-02-04 21:36] LABS: Vancomycin, Random Level 17.8 ug/mL (0.0-15.0)
--- NOTE | 2025-02-04 22:07 | PCM.RX.CS ---
Consult Antibiotic Management Pharmacy has been consulted to manage selected antibiotic: Vancomycin Type of Intervention Type of Consult: Follow-up Labs Labs: Sodium 142 mmol/L (133-145) 02/04/25 05:53 Potassium 3.9 mmol/L (3.3-5.1) 02/04/25 05:53 Chloride 110 mmol/L (98-108) H 02/04/25 05:53 Carbon Dioxide 23.0 mmol/L (21.0-32.0) 02/04/25 05:53 Anion Gap 9 (5-15) 02/04/25 05:53 BUN 27 mg/dL (4-19) H 02/04/25 05:53 Creatinine 1.49 mg/dL (0.70-1.20) H 02/04/25 05:53 Est GFR (MDRD) Non-Af 48 (>60) L 02/04/25 05:53 BUN/Creatinine Ratio 17.8 RATIO (10-20) 02/04/25 05:53 Glucose 170 mg/dL (70-99) H 02/04/25 05:53 Vancomycin Trough 21.4 ug/mL (5.0-15.0) H 02/04/25 09:00 Random Vancomycin 17.8 ug/mL (0.0-15.0) H 02/04/25 21:07 Microbiology Microbiology: Microbiology 02/03/25 18:00 Wound - Left Foot Gram Stain - Final 02/03/25 01:36 Mucosa - Nasopharyngeal Respiratory Panel (PCR) - Final 02/02/25 21:25 Urine, Clean Catch Legionella Antigen - Final 02/02/25 21:25 Urine, Clean Catch Streptococcus pneumoniae Antigen (M - Final Goal Trough Goal Trough: 15-20 mcg/mL Pharmacy Plan for Drug Dosing Pharmacy Plan for Drug Dosing: Pharmacy Service will continue to monitor and adjust dosing as required. RANDOPM LEVEL 17.8 @ 24 HOURS. START 1250MG Q12H AND DRAW TROUGH PRIOR TO 4TH DOSE Follow-Up Labs Follow-Up Labs: Trough: Vancomycin Date/Time Labs Ordered Labs to be done on [date and time ordered]: 02/06 @ 2464
[2025-02-04] MEDS: Vancomycin HCl 1,250 MG in 0.9% Normal Saline (250mL Bag) 250 ML 167 MG IV (22:14)
[2025-02-04] MEDS: MELATONIN 3 MG TABLET PO (22:15)
[2025-02-05] VITALS (22 sets, daily range): BP systolic 131–162; BP diastolic 54–77; PULSE 58–70; RESP 15–18; TEMP 36.1–37.2; O2SAT 93–100; BMI 35.2
[2025-02-05] MEDS: Piperacil/Tazobactam 3.375 GM in 0.9% Normal Saline (50mL MB+) 50 ML IV ×3 (05:06→22:19)
[2025-02-05 07:08] LABS: Hematocrit 30.2 % (40-54); Hemoglobin 9.7 g/dL (13.0-16.5); Immature Granulocytes Count 0.090 X10^3/uL (0.0-0.0); Mean Corp Hgb Conc 32.1 g/dL (32-36); Mean Corpuscular Volume 85.8 fL (80-94); Mean Platelet Vol. 9.2 fl (6.2-12.0); NRBC Flagged by Analyzer 0 % (0-5); Platelet Count 232 K/mm3 (150-450); RBC Distribution Width CV 13.7 % (11.6-14.6); RBC Distribution Width SD 43.1 fl (35.1-43.9); Red Blood Count 3.52 M/mm3 (4.6-6.2); White Blood Count 10.7 K/mm3 (4.4-11.0)
--- NOTE | 2025-02-05 08:38 | PN.HOSP_ITS ---
Subjective Subjective No issues overnight. Hemoglobin and white blood cell count are stable blood sugar is under control. Still awaiting read by radiology on his lower extremity MRI however podiatry would like to proceed with the fifth ray resection today Objective Data Objective Data Vital Signs: Vital Signs Temp Pulse Resp BP Pulse Ox O2 Del Method O2 Flow Rate 97 F L 70 18 131/54 H 96 Nasal Cannula 3.5 02/05/25 03:57 02/05/25 08:06 02/05/25 03:57 02/05/25 03:57 02/05/25 03:57 02/05/25 08:06 02/05/25 08:06 Oxygen Flow Rate (L/min) 3.5 Oxygen Delivery Method Nasal Cannula Weight: 260 lb 2.327 oz Body Mass Index (BMI) 35.2 Intake & Output: Intake and Output for Last 24 Hours 02/04/25 02/05/25 02/06/25 03:59 03:59 03:59 Intake Total 2570 / 2570 2395.00 / 2395.00 Output Total 750 / 750 850 / 850 200 / 200 Balance 1820 / 1820 1545.00 / 1545.00 -200 / -200 Lab / Micro Data 02/05/25 06:41 02/04/25 05:53 Labs: Laboratory Results - last 24 hr 02/04/25 09:00: Vancomycin Trough 21.4 H 02/04/25 11:25: POC Glucose 171 H 02/04/25 17:26: POC Glucose 143 H 02/04/25 21:07: Random Vancomycin 17.8 H 02/04/25 22:26: POC Glucose 176 H 02/05/25 05:50: POC Glucose 167 H 02/05/25 06:41: WBC 10.7, RBC 3.52 L, Hgb 9.7 L, Hct 30.2 L, MCV 85.8, MCH 27.6, MCHC 32.1, RDW Std Deviation 43.1, RDW Coeff of Nathaniel 13.7, Plt Count 232, MPV 9.2, Immature Gran % (Auto) 0.800, Neut % (Auto) 76.4 H, Lymph % (Auto) 9.4 L, Keith % (Auto) 8.0, Eos % (Auto) 5.2 H, Baso % (Auto) 0.2, Absolute Neuts (auto) 8.2 H, Absolute Lymphs (auto) 1.00, Nucleated RBC % 0 Micro: Microbiology 02/05/25 00:05 Nasal Secretion MRSA (PCR) - Final 02/02/25 21:25 Urine, Catheterized Urine Culture - Final Culture exhibits no growth. 02/02/25 20:42 Blood Culture (Wb) - Right Wrist Blood Culture - Preliminary No growth in 48 hours. 02/02/25 19:56 Blood Culture (Wb) - Left Hand Blood Culture - Preliminary No growth in 48 hours. 02/03/25 18:00 Wound - Left Foot Gram Stain - Final 02/03/25 01:36 Mucosa - Nasopharyngeal Respiratory Panel (PCR) - Final 02/02/25 21:25 Urine, Clean Catch Legionella Antigen - Final 02/02/25 21:25 Urine, Clean Catch Streptococcus pneumoniae Antigen (M - Final Physical Exam Narrative General: Drowsy, Oriented x1-2, Cooperative, No apparent distress HEENT: Atraumatic, PERRLA, EOMI, Normocephalic Oral: Moist Mucosa Neck: Supple, No JVD Lungs: Diminished, Normal air movement, No rhonchi, No wheeze, No rales Cardiovascular: Regular rate, Regular Rhythm, Normal S1, Normal S2, No murmurs Abdomen: Soft, Non Tender, Non-Distended, No Hepato-splenomegaly Extremities: No edema, Capillary Refill Less than 3 Seconds Skin: Left lateral foot redness, dressing intact Musculoskeletal: No Tenderness to Palpation of Joints or Extremities Neurological: No focal neurological deficits, moves all extremities Psych/Mental Status: Flat Assessment & Plan Assessment/Plan (1) Pneumonia: PLAN: Plan 1. Sepsis secondary to left sided pneumonia as well as diabetic foot ulcer on the left ? Continue with broad-spectrum antibiotics ? Appreciate podiatry's assistance plan for surgical intervention today. ? Will wean oxygen as able ? Cultures are pending ? MRI is pending read ? JOSTIN on the right is 0.88 with a left JOSTIN of 1.05, podiatry is consulted vascular surgery 2. Paroxysmal A-fib/history of AAA status post repair 2006/essential HTN/HLD/history of sick sinus syndrome status post pacemaker placement ? Continue with his home blood pressure medications ? Blood pressures appear stable ? Continue with cholesterol medications ? Will hold his home Eliquis for the possibility of surgery ? Echo on 02/12/2023 with an EF of 55 to 60% with mild MV insufficiency, he does have a history of aortic valve replacement 3. DM2 ? Hold his home oral medications ? Continue with insulin ? Accu-Cheks ACHS ? Continue with sliding scale insulin ? Will monitor and make adjustments as necessary 4. GERD with a history of GI bleed ? He had been transitioned from Coumadin to Eliquis ? Will hold Eliquis in preparation for possible surgery ? Continue with PPI and Carafate 5. Dementia/anxiety/depression ? Stable, his dementia may be a little bit worse secondary to the infection ? Continue with his home medications 6. BPH with obstruction ? Continue with his Flomax ? Stable 7. Iron deficiency anemia ? Stable ? Continue to monitor ? Continue with iron supplementation DVT: Sandiex Charges/Coding Visit Charges Inpatient E&M: 95747 Subs Hosp L2
--- NOTE | 2025-02-05 08:54 | WOUNDNOTE ---
Pt is scheduled for surgery later today with Dr Mejia so dressing was left in place.
[2025-02-05 09:18] LABS: Anion Gap 12 (5-15); BUN 41 mg/dL (4-19); BUN/Creat Ratio 22.6 RATIO (10-20); Calcium,Total 8.8 mg/dL (7.6-11.0); Carbon Dioxide 20.0 mmol/L (21.0-32.0); Chloride 110 mmol/L (98-108); Estimated Creatinine Clearance 45.33 ml/min (50-250); Glucose 166 mg/dL (70-99); Potassium 3.8 mmol/L (3.3-5.1)
[2025-02-05] MEDS: Metoprolol(XL)Succ 25 MG Tablet PO (09:47)
[2025-02-05] MEDS: Memantine Hydrochloride 10 MG Tablet PO ×2 (09:47→22:39)
[2025-02-05] MEDS: Vancomycin HCl 1,250 MG in 0.9% Normal Saline (250mL Bag) 250 ML 167 MG IV (10:03)
[2025-02-05] MEDS: 0.9% Saline Lock 10 ML Syringe IV (10:04)
--- NOTE | 2025-02-05 11:54 | CASEMGMT ---
Discharge Planning Updates sent to [facility] with note that pt will be here through the weekend. Tamika Encinas DC Planning Asst.
--- NOTE | 2025-02-05 12:10 | CASEMGMT ---
JACEY MASON NOTE: JACEY CM to room. Pt resting in bed, @ bedside. verifies she wishes for pt to return to [facility] @ discharge. 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 She was made aware pt will be returning under skilled level of care. Questions answered. She denies having further questions or concerns. Plan: Return to [facility], under skilled level of care, when medically ready. Elena GUEVARA RN, CM
--- NOTE | 2025-02-05 12:13 | NURSING ---
pt to surgery
[2025-02-05] MEDS: Lactated Ringers 1,000 ML 15 ML IV (12:44)
--- NOTE | 2025-02-05 12:58 | PCM.PRE.AN2 ---
ASA Classification* ASA Classification ASA Classification: 4 Assessment & Plan Anesthesia* Anesthesia Assessment Anesthesia Assessment: Discussed sedation and/or anesthesia options, risks, benefits, and alternatives with patient/parents/legal guardian/POA. Questions invited. The patient/parents/legal guardian/POA seems to understand and agrees to proceed with anesthesia plan. Reviewed the physical assessment, medical history, allergy history and patient home medications list prior to surgery/procedure/anesthetic and documented any changes. Performed airway and anesthesia risk assessments. Anesthesia Type Anesthesia Type: MAC History Source History Obtained from:: Patient and Chart Anesthesia Focused Assessment* Temperature: 97.9 F Pulse Rate: 60 Blood Pressure: 136/58 Respiratory Rate: 16 Pulse Ox: 98 Oxygen Delivery Method: Nasal Cannula Oxygen Flow Rate (L/min): 3.5 Airway Assessment Mouth opens: >3 cm Mallampati Score: IV Teeth Condition: Partial (Upper partials out.) Neck Range of motion (ROM): Limited ROM (Severe Restriction) Labs Anesthesia Preop lab: CBC WBC 10.7 K/mm3 (4.4-11.0) 02/05/25 06:41 02/05/25 RBC 3.52 M/mm3 (4.6-6.2) L 02/05/25 06:41 02/05/25 Hgb 9.7 g/dL (13.0-16.5) L 02/05/25 06:41 02/05/25 Hct 30.2 % (40-54) L 02/05/25 06:41 02/05/25 Plt Count 232 K/mm3 (150-450) 02/05/25 06:41 02/05/25 CHEMISTRY Potassium 3.8 mmol/L (3.3-5.1) 02/05/25 06:41 02/05/25 Sodium 141 mmol/L (133-145) 02/05/25 06:41 02/05/25 Magnesium 1.7 mg/dL (1.5-2.2) 02/03/25 06:31 02/03/25 Phosphorus 2.6 mg/dL (2.5-4.9) 01/27/23 18:20 01/27/23 BUN 41 mg/dL (4-19) H 02/05/25 06:41 02/05/25 Creatinine 1.81 mg/dL (0.70-1.20) H 02/05/25 06:41 02/05/25 Glucose 166 mg/dL (70-99) H 02/05/25 06:41 02/05/25 POC Glucose 153 mg/dL (74-106) H 02/05/25 11:13 02/05/25 TSH 1.55 uIU/mL (0.358-3.74) 01/15/24 07:00 01/15/24 COAG PT 17.3 SECONDS (11.7-14.9) H 02/02/25 19:56 02/02/25 Pre-Assessment Diagnosis/Proposed Procedure Planned Operative Procedure(s): Left debridement foot wound with fifth ray amputation Anesthesia History Anesthesia History - network solutions architect: Anesthesia History - network solutions architect Hx Hospitalization Yes: GI BLEED 05/30/23 11:36 Any Problems With Anesthesia Yes: ALLERGY TO PROPIFOL 02/05/25 02:17 Cholinesterase deficiency No 02/05/25 02:17 You/Your Family Experience No 02/05/25 02:17 fever (hyperthermia) with Relationship Recent Exposure to Contagious No 02/05/25 02:17 Disease Does patient have nerve No 02/05/25 02:17 stimulator Patient instructed to have device shut off --Does patient have Pacemaker Yes 02/05/25 11:18 or ICD? When Was Last Pacemaker Check QUESTION #4 FULL TEXT: You/Your Family Experience fever (hyperthermia) with Anesthesia Last Oral Intake Last Oral intake: Last Oral Intake NPO since 00:00 02/05/25 11:18 Meds taken in AM with sips of Yes 02/05/25 11:18 water? Meds patient instructed to see 02/05/25 11:18 take am of surgery PONV PONV - network solutions architect: PONV - network solutions architect Female HX of Motion Sickness HX of N/V After Surgery Non-Smoker Duration of Surgery greater than 60 minutes Number of Risk Factors PONV Score Height & Weight Height & Weight: Anesthesia: Height & Weight Height 6 ft 02/05/25 11:18 Weight: 118 kg 02/05/25 11:18 Body Mass Index (BMI) 35.2 02/05/25 11:18 Respiratory Assessment Respiratory Assessment - network solutions architect: Respiratory Tract Infection Hx - network solutions architect Hx Respiratory Tract Infection Yes: pneumonia 02/05/25 02:17 STOP Sleep Apnea STOP Sleep Apnea - network solutions architect: STOP Sleep Apnea - network solutions architect Hx Hypertension Yes 02/03/25 10:30 Hx Sleep Apnea No 02/03/25 01:28 CPAP No 02/11/23 20:40 BIPAP No 02/11/23 20:40 Do you snore loudly (louder No 02/03/25 01:28 than talking or can be heard Do you often feel tired/ No 02/03/25 01:28 fatigued/ sleepy during daytime? Has anyone observed you stop No 02/03/25 01:28 breathing during sleep? STOP Results Negative 02/03/25 01:28 QUESTION #5 FULL TEXT : Do you snore loudly (louder than talking or can be heard through closed doors)? Tobacco Use History Tobacco Use History - network solutions architect: Tobacco Use History - network solutions architect Tobacco Use Smoking Status Never smoker 02/03/25 01:28 Hx Tobacco Use No 02/03/25 01:28 Years Smoking Packs Smoked per Day Smoking Cessation Date was within the last 15 years Hx Smoking Cessation Date Hx Smoking Cessation No 02/03/25 01:28 Counseling Hematologic Medial History Hematologic Hx - network solutions architect: Hematologic Medical Hx - leasing manager Hx of Blood Transfusion Hx of Transfusion in last 3 Months Date of Last Transfusion (if within last 3 months) Ever experience any problems with transfusion(s)? Specify any problems Hx of Preganancy in last 3 N/A 02/03/25 01:28 Months Nurse Filling Out Transfusion & Questions: Date: Time: Patient unable to answer at Yes 02/03/25 01:28 this time (ie. confused, unrespo /Reproduction History /Reproductive History - network solutions architect: /Reproductive Hx- network solutions architect Hx Now Gestational Age (in weeks): EDC: Hx Hx Para Hx Section SAB Active Medications Active Medications: Current Medications Generic Name Dose Route Start Last Admin Trade Name Freq PRN Reason Stop Dose Admin Acetaminophen 650 mg 02/03/25 01:20 02/05/25 00:05 Acetaminophen 325 Mg Tablet PO 650 mg Q4H PRN PRN Administration Fever, pain 1-10/10 Al Hydroxide/Mg Hydroxide 30 ml 02/03/25 01:20 Mag Hydrox/Al Hydrox/Simeth 30 Ml Udc PO Q6H PRN PRN Gastric Burning Albuterol Sulfate 2.5 mg 02/03/25 01:20 Albuterol 2.5 Mg/3 Ml Vial.Neb. INHALATION Q2H PRN PRN Dyspnea, wheezing Atorvastatin Calcium 40 mg 02/03/25 22:00 02/04/25 22:15 Atorvastatin Calcium 40 Mg Tablet PO 40 mg QHS FRED Administration Calamine/Phenol 1 applic 02/03/25 10:00 02/05/25 09:48 Menthol/Lanolin/Calamine/Znox 113 Gm Tube TOPICAL 1 applic 4X/DAY FRED Administration Protocol Enoxaparin Sodium 40 mg 02/04/25 10:00 02/05/25 09:11 Enoxaparin 40 Mg/0.4 Ml Syringe SC Not Given DAILY FRED Ferrous Sulfate 325 mg 02/03/25 12:00 02/05/25 11:23 Ferrous Sulfate 325 Mg Tablet PO Not Given DAILY@1200 [facility] Glucagon 1 mg 02/03/25 01:20 Glucagon 1 Mg/Ml Syringe IM X1 PRN HYPOGLYCEMIA Protocol Guaifenesin 20 ml 02/03/25 01:20 Guaifenesin 10 Ml Udc (200mg/10ml) PO Q4H PRN PRN COUGH Hydralazine HCl 10 mg 02/03/25 01:20 Hydralazine 20 Mg/Ml Vial IV Q4H PRN PRN SBP > 160 Protocol Vancomycin IV-PHARMACY TO DOSE 500 mls @ 250 mls/hr 02/03/25 01:20 1 each/ Sodium Chloride IV PRN PRN Rx to Dose Protocol Piperacillin Sod/Tazobactam 50 mls @ 12.5 mls/hr 02/03/25 06:00 02/05/25 09:10 Sod 3.375 gm/ Sodium Chloride IV Infused Q8 FRED Infusion Dextrose 250 mls @ 0 mls/hr 02/03/25 01:20 Dextrose 10%-Water IV .Q0M PRN HYPOGLYCEMIA Protocol As Directed Vancomycin HCl 1,250 mg/ 275 mls @ 167 mls/hr 02/04/25 22:00 02/05/25 12:13 Sodium Chloride IV Infused Q12H FRED Infusion Lactated Ringer's 1,000 mls @ 15 mls/hr 02/05/25 12:30 02/05/25 12:44 IV 15 mls/hr .Q48H FRED Administration Insulin Glargine 15 unit 02/03/25 10:00 02/05/25 09:28 Insulin Glargine-Yfgn 100 Unit/Ml Pen SC Not Given DAILY FRED Insulin Human Lispro 0 unit 02/03/25 07:00 02/05/25 11:23 Insulin Lispro 100 Unit/Ml Insuln.Pen SC Not Given ACHS FRED Protocol Loperamide HCl 2 mg 02/03/25 01:20 Loperamide 2 Mg Capsule PO Q4H PRN PRN loose stool Losartan Potassium 50 mg 02/03/25 10:00 02/05/25 09:47 Losartan Potassium 50 Mg Tablet PO 50 mg DAILY FRED Administration Protocol Melatonin 3 mg 02/03/25 22:00 02/04/25 22:15 Melatonin 3 Mg Tablet PO 3 mg QHS FRED Administration Memantine 10 mg 02/03/25 10:00 02/05/25 09:47 Memantine Hydrochloride 10 Mg Tablet PO 10 mg BID FRED Administration Metoprolol Succinate 25 mg 02/03/25 10:00 02/05/25 09:47 Metoprolol(Xl)Succ 25 Mg Tablet PO 25 mg DAILY [facility] Administration Protocol Nystatin 1 applic 02/05/25 10:00 02/05/25 09:48 Nystatin Powder 15gm Bottle TOPICAL 1 applic BID [facility] Administration Protocol Ondansetron HCl 4 mg 02/03/25 01:20 Ondansetron 4 Mg/2 Ml Vial IV Q8H PRN PRN NAUSEA/VOMITING Pantoprazole Sodium 40 mg 02/03/25 10:00 02/05/25 09:47 Pantoprazole Sodium 40 Mg Tablet PO 40 mg BID FRED Administration Paroxetine HCl 30 mg 02/03/25 10:00 02/05/25 09:48 Paroxetine 10 Mg Tablet PO 30 mg DAILY FRED Administration Prochlorperazine Edisylate 5 mg 02/03/25 01:20 Prochlorperazine 10 Mg/2 Ml Vial IV Q4H PRN PRN Breakthrough nausea/vomiting Senna/Docusate Sodium 2 tablet 02/03/25 01:20 Senna/Docusate Sodium 1 Tablet PO BID PRN PRN Constipation Sodium Chloride 10 - 40 ml 02/03/25 02:26 02/05/25 10:04 0.9% Saline Lock 10 Ml Syringe IV 10 ml UD PRN Administration SALINE FLUSH Sucralfate 1 gm 02/03/25 07:00 02/05/25 09:48 Sucralfate 1 Gm Tablet PO Not Given 0700,1100,1600 [facility] Tamsulosin HCl 0.4 mg 02/03/25 22:00 02/04/25 22:14 Tamsulosin Hcl 0.4 Mg Capsule PO 0.4 mg QHS FRED Administration Vancomycin Protocol 1 lab 02/06/25 08:30 Vancomycin Trough/Random Due MC 02/06/25 10:30 DAILY [facility] PFSH Medical History MRSA (methicillin resistant staph aureus) culture positive History of stress test History of echocardiogram Cardiology follow-up encounter Uses wheelchair Difficulty swallowing History of ulceration History of GI bleed History of renal disease Prostate disease Pulmonary embolism High cholesterol Atrial tachycardia Anxiety Depression Kidney stones GI bleed Non-smoker Atrial fibrillation AAA (abdominal aortic aneurysm) Dementia Bacteremia Subtherapeutic international normalized ratio (INR) UTI (urinary tract infection) Presence of cardiac pacemaker Sick sinus syndrome Anemia Second degree AV block, Mobitz type II Supratherapeutic INR Syncope Acute encephalopathy Weakness Confusion History of pulmonary embolism NSTEMI, initial episode of care Valvular heart disease Amputation of right great toe Leukocytosis Hyperkalemia COVID-19 Ureterolithiasis Diabetes Aortic aneurysm without rupture HTN (hypertension) Lactic acidosis Upper gastrointestinal bleed Diabetic neuropathy Osteomyelitis Ulcer of right great toe due to diabetes mellitus Pulmonary emboli HLD (hyperlipidemia) RBBB (right bundle 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) Home Medications ?Medication ?Instructions ?Recorded ?Last Taken ?Type losartan 50 mg tablet 50 mg PO DAILY blood pressure 03/24/18 06/01/24 History atorvastatin 40 mg tablet 40 mg PO QHS cholesterol 05/22/18 05/31/24 History tamsulosin 0.4 mg capsule 0.4 mg PO QHS PROSTATE 03/02/22 05/31/24 History cholecalciferol (vitamin D3) 1,250 1,250 mcg PO MO SUPPLEMENT 01/21/23 06/01/24 History mcg (50,000 unit) tablet metformin 1,000 mg tablet 1,000 mg PO BID DM 01/21/23 06/01/24 History insulin glargine 100 unit/mL (3 15 unit (0.15 mL) subcut DAILY 01/26/23 06/01/24 Rx mL) subcutaneous pen (Lantus diabetes #15 mL Solostar U-100 Insulin) pantoprazole 40 mg tablet,delayed 40 mg PO BID #60 tabs 02/05/23 06/01/24 Rx release sucralfate 1 gram tablet 1 g PO 0700,1100,1600 #90 tabs 02/05/23 06/01/24 Rx melatonin 3 mg tablet 3 mg PO QHS Insomnia 02/10/23 02/10/23 History memantine 10 mg tablet 10 mg PO BID #0 tabs 02/13/23 06/01/24 Rx bisacodyl 10 mg rectal suppository 10 mg MO DAILY PRN constipation 05/30/23 Unknown History loperamide 2 mg capsule 2 mg PO Q4H PRN loose stool 05/30/23 Unknown History (Anti-Diarrheal (loperamide)) acetaminophen 325 mg tablet 650 mg PO .q12hrs PAIN AND FEVER 10/07/23 06/01/24 History ferrous sulfate 325 mg (65 mg 325 mg PO DAILY 10/07/23 06/01/24 History iron) tablet apixaban 5 mg tablet (Eliquis) 5 mg PO BID #60 tabs 03/03/24 05/30/24 Rx paroxetine HCl 30 mg tablet 30 mg PO QDAY 04/07/24 06/01/24 History ipratropium 0.5 mg-albuterol 3 mg 3 ml inhalation Q4H PRN shortness 02/02/25 Unknown History (2.5 mg base)/3 mL nebulization of breath soln metoprolol succinate 25 mg capsule 25 mg PO DAILY 02/02/25 Unknown History sprinkle, ext. release 24 hr (Kapspargo Hetalinkle) Allergy/AdvReac Type Severity Reaction Status Date / Time propofol AdvReac Other Verified 02/02/25 19:42 Family History Mother Heart disease Diabetes Hypertension Father Heart disease Surgical History History of AAA (abdominal aortic aneurysm) repair History of foot surgery Hx of abdominal surgery H/O aortic valve repair History of thoracic aortic aneurysm repair Social History housing: long term current occupational status: retired Smoking Status: Never smoker alcohol intake: never substance use type: does not use Review of Systems (Anesthesia) ROS Narrative System reviewed and no additional complaints, except as documented.
--- NOTE | 2025-02-05 13:30 | AMP_PTH ---
PATIENT: RICHARD ROY LOC: [facility] U#:[id number] AGE/SX: 79/M ROOM: [facility] RE02/02/[address]: Dr. Hugo Cervantes MD : 1945 BED: 1 DIS: 02/11/2025 SPEC #: [id number] RECD: 02/05/25 14:34 STATUS: VINNIE METZGERChantelle #: [id number] CAMILA: 02/05/25 13:[address]: Kee Mejia DEPT: SURGICAL PATHOLOGY RECD BY: Moise Landon ENTERED: 02/05/25 15:24 SP TYPE: Amputation OTHR DR: MD Dr. Aneesh Abbasi MD Dr. Nicholas F Kotsonis, MD Todd Corley INDUSTRIAL RELATIONS WORKER-C Tissues: A - Toe, NOS B - Toe, NOS Procedures: Decalcification bone/plaque Surgery Specimen Level IV HEADER OPERATION: Debridement foot wound left 5th ray PRE-OP DIAGNOSIS: Cellulitis of left lower limb, acute osteomyelitis of metatarsal bone of left foot, diabetes mellitus with diabetic polyneuropathy, type 2 diabetes mellitus with foot ulcer TISSUE SUBMITTED: A- Left 5th metatarsal wound and bone, B- Clearance fragment 5th left metatarsal and toe MICROSCOPIC DIAGNOSIS A. Bone, metatarsal, left, debridement: * Cutaneous ulcer with gangrenous necrosis * Bone with acute osteomyelitis B. Bone, metatarsal, left fifth and toe clearance: * Bone with focal acute osteomyelitis MICROSCOPIC DESCRIPTION Slides are reviewed. GROSS DESCRIPTION Received in 2 formalin containers labeled with the patient's name and date of . Designated as: A. Left 5th metatarsal wound and bone are 2 irregular bone fragments and a portion of skin, collectively measuring 3.9 x 3.2 x 2.6 cm. The skin is rivas with a central, 2.4 x 1.8 cm dark brown-black eschar. Textile Machine Maintenance Mechanic sections are submitted in 2 cassettes, following decalcification as follows:A1: BoneA2: Skin B. Clearance fragment 5th left metatarsal and toe are 2 irregular rivas to red bone fragments, averaging 0.6 x 0.4 x 0.2 cm. Entirely submitted in 1 cassette, following decalcification. ND 02/08/2025 CPT:[id number]
--- NOTE | 2025-02-05 14:18 | OP.PCM_ITS ---
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: No Type of Anesthesia: Local MAC RN Documented Start/Stop Times: Operation Date: 02/05/25 13:30 Case Time Into Pre-Op 02/05/25 12:23 Out of Pre-Op 02/05/25 13:22 Anesthesia Start 02/05/25 13:33 Into Room 02/05/25 13:33 Procedure Start 02/05/25 13:51 Procedure End 02/05/25 14:12 Anesthesia End 02/05/25 14:16 Out of Room 02/05/25 14:16 Into Recovery 02/05/25 14:17 Procedure Start Time: 13:51 Procedure Stop Time: 14:12 Select all DRAINS/GRAFTS/IMPLANTS that apply: None Estimated Blood Loss: 5mL Specimen collected: Yes Description of specimen(s) removed: Wound and bone from left 5th toe and metatarsal - sent to pathology Bone biopsy of left 5th toe and bone - sent to microbiology Clearance fragment left 5th toe and 5th metatarsal - sent to pathology and microbiology Description of surgery: Indications: 79 year old gentleman with many medical problems developed left lateral foot ulceration and infection down to and including bone. The ulceration probed to bone. The ulceration was noted to be necrotic, nonviable and had drainage consistent with infection, there was also significant cellulitis as well as some maloder. Left foot xrays and MRI were obtained and no clear evidence of osteomyelitis. Patient also noted to have peripheral vascular disease, vascular surgery has been consulted and following. Given the infection discussed debridement of all nonviable, necrotic and infected soft tissue and bone with possible left 5th toe and 5th metatarsal amputation. This was discussed with vascular surgery and okay to proceed from vascular standpoint. Discussed this with patient and his and also son Smith, reviewed procedure, rationale of procedure, possible benefits vs risks, goals and expectations. Patient elected to proceed with the procedure as noted above. The risks were reviewed with him, which include but not limited to pain, bleeding, need for further surgery, infection, blood clots, deformity, disability, loss of limb, loss of life. The consent form was reviewed with him and he freely signed it. All of his questions as well s his 's and son Smith's questions were answered. No guarantees or warranties were given. Also of note patient is on IV antibiotics. Operative Procedure: The patient was brought back to the operating room and was placed on the operating room table in the supine position. The patient was carefully secured to the operating room table with a safety belt around his waist. A timeout was performed and the patient was properly identified and surgical plan confirmed. The patient received MAC anesthesia per the anesthesia team. A well padded pneumatic tourniquet was applied around the patient's left ankle but was never inflated or used. After the overlying skin was cleansed with 70% Isopropyl alcohol a total of 10mL of 0.5% Bupivacaine plain was given as a local nerve block around the patient's left 5th ray on his left foot. The left foot was scrubbed, prepped, and draped in the usual aseptic fashion. Further attention was directed to the patient's left foot where again it was noted there was an ulceration which was necrotic to the lateral 5th metatarsal phalangeal joint. It was down to the bone of the 5th metatarsal and base of the 5th toe. There was surrounding cellulitis extending to the rest of the forefoot to the midfoot. Using a 15 blade the ulceration was debrided in excisional fashion down to the bone removing all nonviable and necrotic soft tissue. This was passed from the surgical site and sent to pathology. The bone of the 5th metatarsal head and base of the proximal phalanx of the 5th toe was noted to be soft with some necrosis, and was debrided in excisional fashion using a powered sagittal saw. A bone biopsy was completed form the proximal phalanx base 5th toe and 5th metatarsal and sent to microbiology otherwise the debrided bone was sent to pathology. This wound was debrided down to healthy viable margins and base. The area debrided measured 3.5cm x 3cm down to and including bone. The site was flushed with copious amounts of normal saline solution. A dressing was applied which consisted of normal saline solution wet to dry gauze dressing and overlying kerlix was applied. Of note there was some bleeding but was less than normal consistent with patient's peripheral vascular disease. The patient tolerated the procedure well and anesthesia well with no complication. Patient was transported from the operating room to the recovery room with vital signs stable and in good condition. Patient will be followed as an inpatient. Surgical Findings: As noted above Complications Complications: No
--- NOTE | 2025-02-05 14:22 | PCM.POST.ANE ---
Anesthesia: Postop Eval I Current Vital Signs Temperature: 98.9 F Pulse Rate: 60 Blood Pressure: 155/75 Respiratory Rate: 16 Pulse Ox: 100 Assessment Airway patent: Yes Spontaneous unlabored respirations: Yes nausea: No Vomiting: No Anesthesia Complication: No Fluid Hydration Crystalloid volume administer (ml): 100 Total IV fluid infused: 100 Progress Note Anesthesia document: Postop Eval 1 completed: Yes
--- NOTE | 2025-02-05 15:05 | RAD_ITS ---
PROCEDURE: FOOT MIN 3 VIEWS 02/05/2025 REASON FOR EXAM: POSTO OP TECHNIQUE: FOOT MIN 3 VIEWS COMPARISON: February 02, 2025 FINDINGS: Bones: No fracture seen. The patient has undergone amputation of the distal 5th metatarsal and the proximal portion of the proximal phalanx 5th digit. Joints: Intact. Soft tissues: Postsurgical change lateral forefoot. Advanced atherosclerosis. Other: No foreign body RAD/Foot min 3 Views IMPRESSION: Postsurgical change. No complication. Reading Location: [id number]
[2025-02-05] MEDS: MELATONIN 3 MG TABLET PO (22:40)
[2025-02-06] VITALS (10 sets, daily range): BP systolic 140–152; BP diastolic 61–86; PULSE 63–67; RESP 15–20; TEMP 36.9–37.2; O2SAT 88–96; BMI 35.6
[2025-02-06] MEDS: Vancomycin HCl 1,250 MG in 0.9% Normal Saline (250mL Bag) 250 ML 167 MG IV (02:19)
[2025-02-06] MEDS: Piperacil/Tazobactam 3.375 GM in 0.9% Normal Saline (50mL MB+) 50 ML IV ×3 (05:33→21:37)
[2025-02-06 06:42] LABS: Anion Gap 11 (5-15); BUN 40 mg/dL (4-19); BUN/Creat Ratio 22.0 RATIO (10-20); Calcium,Total 8.8 mg/dL (7.6-11.0); Carbon Dioxide 21.2 mmol/L (21.0-32.0); Chloride 109 mmol/L (98-108); Estimated Creatinine Clearance 45.10 ml/min (50-250); Glucose 150 mg/dL (70-99); Potassium 3.9 mmol/L (3.3-5.1)
[2025-02-06 06:46] LABS: Hematocrit 30.5 % (40-54); Hemoglobin 9.9 g/dL (13.0-16.5); Immature Granulocytes Count 0.080 X10^3/uL (0.0-0.0); Mean Corp Hgb Conc 32.5 g/dL (32-36); Mean Corpuscular Volume 85.9 fL (80-94); Mean Platelet Vol. 9.2 fl (6.2-12.0); NRBC Flagged by Analyzer 0 % (0-5); Platelet Count 262 K/mm3 (150-450); RBC Distribution Width CV 13.6 % (11.6-14.6); RBC Distribution Width SD 42.9 fl (35.1-43.9); Red Blood Count 3.55 M/mm3 (4.6-6.2); White Blood Count 9.9 K/mm3 (4.4-11.0)
--- NOTE | 2025-02-06 09:06 | PN.HOSP_ITS ---
Subjective Subjective No issues overnight, tolerated surgery fairly well. Lab work is unremarkable. Okay to start Eliquis again per podiatry Objective Data Objective Data Vital Signs: Vital Signs Temp Pulse Resp BP Pulse Ox O2 Del Method O2 Flow Rate 98.9 F 67 15 141/61 H 93 Nasal Cannula 3 02/06/25 02:34 02/06/25 02:34 02/06/25 02:34 02/06/25 02:34 02/06/25 07:59 02/06/25 07:59 02/06/25 07:59 Oxygen Flow Rate (L/min) 3 Oxygen Delivery Method Nasal Cannula Weight: 263 lb 3.711 oz Body Mass Index (BMI) 35.6 Intake & Output: Intake and Output for Last 24 Hours 02/05/25 02/06/25 02/07/25 03:59 03:59 03:59 Intake Total 2395.00 / 2395.00 686.5 / 961.5 275 / 275 Output Total 850 / 850 2009 100 / 100 Balance 1545.00 / 1545.00 -1323.5 / -1048.5 175 / 175 Lab / Micro Data 02/06/25 05:18 02/06/25 05:18 Labs: Laboratory Results - last 24 hr 02/05/25 06:41: Sodium 141, Potassium 3.8, Chloride 110 H, Carbon Dioxide 20.0 L , Anion Gap 12, BUN 41 H, Creatinine 1.81 H, Estim Creat Clear Calc 45.33 L, Est GFR (MDRD) Non-Af 38 L, BUN/Creatinine Ratio 22.6 H, Glucose 166 H, Calcium 8.8 02/05/25 09:27: POC Glucose 159 H 02/05/25 11:13: POC Glucose 153 H 02/05/25 16:40: POC Glucose 152 H 02/05/25 22:36: POC Glucose 168 H 02/06/25 05:18: WBC 9.9, RBC 3.55 L, Hgb 9.9 L, Hct 30.5 L, MCV 85.9, MCH 27.9, MCHC 32.5, RDW Std Deviation 42.9, RDW Coeff of Nathaniel 13.6, Plt Count 262, MPV 9.2, Immature Gran % (Auto) 0.800, Neut % (Auto) 74.2 H, Lymph % (Auto) 10.1 L, Pender % (Auto) 8.6, Eos % (Auto) 5.9 H, Baso % (Auto) 0.4, Absolute Neuts (auto) 7.3, Absolute Lymphs (auto) 1.00, Nucleated RBC % 0, Sodium 141, Potassium 3.9, Chloride 109 H, Carbon Dioxide 21.2, Anion Gap 11, BUN 40 H, Creatinine 1.83 H, Estim Creat Clear Calc 45.10 L, Est GFR (MDRD) Non-Af 38 L, BUN/Creatinine Ratio 22.0 H, Glucose 150 H, Calcium 8.8 02/06/25 06:22: POC Glucose 147 H Micro: Microbiology 02/03/25 18:00 Wound - Left Foot Gram Stain - Final 02/03/25 18:00 Wound - Left Foot Wound Culture - Preliminary Meth. resistant Staph. 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 02/02/25 20:42 Blood Culture (Wb) - Right Wrist Blood Culture - Preliminary No growth in 48 hours. 02/02/25 19:56 Blood Culture (Wb) - Left Hand Blood Culture - Preliminary No growth in 48 hours. 02/03/25 01:36 Mucosa - Nasopharyngeal Respiratory Panel (PCR) - Final 02/02/25 21:25 Urine, Clean Catch Legionella Antigen - Final 02/02/25 21:25 Urine, Clean Catch Streptococcus pneumoniae Antigen (M - Final Radiography Diagnostic Testing: Radiology Impression Foot X-Ray 02/05/25 15:05 IMPRESSION: Postsurgical change. No complication. Reading Location: [facility] Physical Exam Narrative General: Alert, Oriented x1-2, Cooperative, No apparent distress HEENT: Atraumatic, PERRLA, EOMI, Normocephalic Oral: Moist Mucosa Neck: Supple, No JVD Lungs: Diminished, Normal air movement, No rhonchi, No wheeze, No rales Cardiovascular: Regular rate, Regular Rhythm, Normal S1, Normal S2, No murmurs Abdomen: Soft, Non Tender, Non-Distended, No Hepato-splenomegaly Extremities: No edema, Capillary Refill Less than 3 Seconds Skin: Left lateral foot redness, dressing intact Musculoskeletal: No Tenderness to Palpation of Joints or Extremities Neurological: No focal neurological deficits, moves all extremities Psych/Mental Status: Normal affect Assessment & Plan Assessment/Plan (1) Pneumonia: PLAN: Plan 1. Sepsis secondary to left sided pneumonia as well as diabetic foot ulcer on the left status post left fifth ray resection 02/05/2025/ANTHONY ? Continue with broad-spectrum antibiotics ? Appreciate podiatry's assistance plan for surgical intervention today. ? Will wean oxygen as able ? Cultures are pending, plan for infectious disease consultation on Saturday ? MRI is pending read ? JOSTIN on the right is 0.88 with a left JOSTIN of 1.05, podiatry is consulted vascular surgery ? Creatinine has climbed to 1.83, will start him on IV fluids as it does not appear that he is obtaining significant p.o. intake. Appreciate speech therapy. Baseline creatinine is 1.1 2. Paroxysmal A-fib/history of AAA status post repair 2006/essential HTN/HLD/history of sick sinus syndrome status post pacemaker placement ? Continue with his home blood pressure medications ? Blood pressures appear stable ? Continue with cholesterol medications ? Will hold his home Eliquis for the possibility of surgery ? Echo on 02/12/2023 with an EF of 55 to 60% with mild MV insufficiency, he does have a history of aortic valve replacement 3. DM2 ? Hold his home oral medications ? Continue with insulin ? Accu-Cheks ACHS ? Continue with sliding scale insulin ? Will monitor and make adjustments as necessary 4. GERD with a history of GI bleed ? He had been transitioned from Coumadin to Eliquis ? Will hold Eliquis in preparation for possible surgery ? Continue with PPI and Carafate 5. Dementia/anxiety/depression ? Stable, his dementia may be a little bit worse secondary to the infection ? Continue with his home medications 6. BPH with obstruction ? Continue with his Flomax ? Stable 7. Iron deficiency anemia ? Stable ? Continue to monitor ? Continue with iron supplementation DVT: Lovenox Charges/Coding Visit Charges Inpatient E&M: 77225 Subs Hosp L2
[2025-02-06 10:14] LABS: Vancomycin, Trough Level 25.9 ug/mL (5.0-15.0)
[2025-02-06] MEDS: Metoprolol(XL)Succ 25 MG Tablet PO (10:36)
[2025-02-06] MEDS: Memantine Hydrochloride 10 MG Tablet PO ×2 (10:36→21:36)
[2025-02-06] MEDS: 0.9% Saline Lock 10 ML Syringe IV (10:36)
[2025-02-06] MEDS: APIXABAN 5 MG TABLET PO ×2 (10:44→21:37)
--- NOTE | 2025-02-06 10:54 | PN_ITS ---
Subjective Subjective Patient was seen this morning for follow up on left foot. He is resting comfortably in bed. No new complaints. No fever noted. Objective Data Objective Data Vital Signs: Vital Signs Temp Pulse Resp BP Pulse Ox O2 Del Method O2 Flow Rate 98.4 F 65 20 H 148/71 H 95 Nasal Cannula 2 02/06/25 10:30 02/06/25 10:30 02/06/25 10:30 02/06/25 10:30 02/06/25 10:30 02/06/25 10:30 02/06/25 10:30 Oxygen Flow Rate (L/min) 2 Oxygen Delivery Method Nasal Cannula Weight: 119.4 kg Body Mass Index (BMI) 35.6 Intake & Output: Intake and Output for Last 24 Hours 02/04/25 02/05/25 02/06/25 23:59 23:59 23:59 Intake Total 1811.25 / 1811.25 1170.25 / 1270.25 425 / 425 Output Total 850 / 850 0 / 2010 1200 / 1200 Balance 961.25 / 961.25 260.25 / -739.75 -775 / -775 Lab / Micro Data 02/06/25 05:18 02/06/25 05:18 Labs: Laboratory Results - last 24 hr 02/05/25 11:13: POC Glucose 153 H 02/05/25 16:40: POC Glucose 152 H 02/05/25 22:36: POC Glucose 168 H 02/06/25 05:18: WBC 9.9, RBC 3.55 L, Hgb 9.9 L, Hct 30.5 L, MCV 85.9, MCH 27.9, MCHC 32.5, RDW Std Deviation 42.9, RDW Coeff of Nathaniel 13.6, Plt Count 262, MPV 9.2, Immature Gran % (Auto) 0.800, Neut % (Auto) 74.2 H, Lymph % (Auto) 10.1 L, Leslie % (Auto) 8.6, Eos % (Auto) 5.9 H, Baso % (Auto) 0.4, Absolute Neuts (auto) 7.3, Absolute Lymphs (auto) 1.00, Nucleated RBC % 0, Sodium 141, Potassium 3.9, Chloride 109 H, Carbon Dioxide 21.2, Anion Gap 11, BUN 40 H, Creatinine 1.83 H, Estim Creat Clear Calc 45.10 L, Est GFR (MDRD) Non-Af 38 L, BUN/Creatinine Ratio 22.0 H, Glucose 150 H, Calcium 8.8 02/06/25 06:22: POC Glucose 147 H 02/06/25 09:30: Vancomycin Trough 25.9 H Micro: Microbiology 02/03/25 18:00 Wound - Left Foot Gram Stain - Final 02/03/25 18:00 Wound - Left Foot Wound Culture - Preliminary Meth. resistant Staph. 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 02/05/25 00:05 Nasal Secretion MRSA (PCR) - Final 02/02/25 21:25 Urine, Catheterized Urine Culture - Final Culture exhibits no growth. 02/02/25 20:42 Blood Culture (Wb) - Right Wrist Blood Culture - Preliminary No growth in 48 hours. 02/02/25 19:56 Blood Culture (Wb) - Left Hand Blood Culture - Preliminary No growth in 48 hours. 02/03/25 01:36 Mucosa - Nasopharyngeal Respiratory Panel (PCR) - Final 02/02/25 21:25 Urine, Clean Catch Legionella Antigen - Final 02/02/25 21:25 Urine, Clean Catch Streptococcus pneumoniae Antigen (M - Final Radiography Diagnostic Testing: Radiology Impression Foot X-Ray 02/05/25 15:05 IMPRESSION: Postsurgical change. No complication. Reading Location: [facility] Physical Exam Const alert and no apparent distress Constitutional Narrative: s/p left foot 5th ray debridement - there is some active bleeding upon removing the dressing, the wound site iis viable, no purulence, no visible abscess, the cellulitis left foot is much improved, there is slight delay in CFT left 5th toe, no new open wounds present or acute ischemia to left foot. No pain to left foot. Assessment & Plan Assessment/Plan (1) Cellulitis of left lower limb: (2) Acute osteomyelitis of metatarsal bone of left foot: (3) Diabetes mellitus with diabetic polyneuropathy: (4) Type 2 diabetes mellitus with foot ulcer: PLAN: Plan Reviewed diagnostic data. s/p left foot 5th ray debridement on 02/05/2025. Infection significantly improved clinically today. There is slight delayed CFT to left 5th toe - will continue to monitor. Vascular surgery is on consult and planning to get CTA. Patient remains on IV antibiotic therapy. No weightbearing left foot. Keep offloaded at all times. Podiatry will continue to follow.
[2025-02-06] MEDS: 0.9% Normal Saline (1000mL) 1,000 ML 75 ML IV ×2 (10:59→23:53)
[2025-02-06] MEDS: Insulin Glargine-YFGN 100 UNIT/ML Pen 15 UNIT SC (12:45)
--- NOTE | 2025-02-06 16:30 | PHA.PHARE_ITS ---
Consult Antibiotic Management Pharmacy has been consulted to manage selected antibiotic: Vancomycin Type of Intervention Type of Consult: Follow-up Suspected Infection Suspected Infection: Sepsis, Skin/Soft tissue and Pneumonia Labs Labs: Sodium 141 mmol/L (133-145) 02/06/25 05:18 Potassium 3.9 mmol/L (3.3-5.1) 02/06/25 05:18 Chloride 109 mmol/L (98-108) H 02/06/25 05:18 Carbon Dioxide 21.2 mmol/L (21.0-32.0) 02/06/25 05:18 Anion Gap 11 (5-15) 02/06/25 05:18 BUN 40 mg/dL (4-19) H 02/06/25 05:18 Creatinine 1.83 mg/dL (0.70-1.20) H 02/06/25 05:18 Est GFR (MDRD) Non-Af 38 (>60) L 02/06/25 05:18 BUN/Creatinine Ratio 22.0 RATIO (10-20) H 02/06/25 05:18 Glucose 150 mg/dL (70-99) H 02/06/25 05:18 Vancomycin Trough 25.9 ug/mL (5.0-15.0) H 02/06/25 09:30 Random Vancomycin 17.8 ug/mL (0.0-15.0) H 02/04/25 21:07 Microbiology Microbiology: Microbiology 02/05/25 Unknown Tissue - Toe Gram Stain - Final 02/05/25 Unknown Tissue - Toe Gram Stain - Final 02/03/25 18:00 Wound - Left Foot Gram Stain - Final 02/03/25 18:00 Wound - Left Foot Wound Culture - Preliminary Meth. resistant Staph. 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 02/05/25 00:05 Nasal Secretion MRSA (PCR) - Final 02/02/25 21:25 Urine, Catheterized Urine Culture - Final Culture exhibits no growth. 02/02/25 20:42 Blood Culture (Wb) - Right Wrist Blood Culture - Preliminary No growth in 48 hours. 02/02/25 19:56 Blood Culture (Wb) - Left Hand Blood Culture - Preliminary No growth in 48 hours. 02/03/25 01:36 Mucosa - Nasopharyngeal Respiratory Panel (PCR) - Final 02/02/25 21:25 Urine, Clean Catch Legionella Antigen - Final 02/02/25 21:25 Urine, Clean Catch Streptococcus pneumoniae Antigen (M - Final Goal Trough Goal Trough: 15-20 mcg/mL Pharmacy Plan for Drug Dosing Pharmacy Plan for Drug Dosing: VANCOMYCIN LEVEL RECEIVED Current Vancomycin Dose: 1250mg q12h (10,22) Number of Doses Received: x3 of current dose Vancomycin Level: 25.9 Hours Since Last Dose: 7.25 hours since last 1250mg dose Renal Function: SrCr 1.83 Renal Function Trend: SrCr increasing (was 1.10 on 02/03 and 1.49 on 02/04) Lab/Micro: Vancomycin Plan/Comments: due to increasing SrCr and elevated trough, recommend holding vancomycin and checking a random level 02/06/25 at 2130 Pending Level: 02/06/25 at 2130 Pharmacy Service will continue to monitor and adjust dosing as required. Follow-Up Labs Follow-Up Labs: Trough: Vancomycin (02/06/25 at 2130 (random level))
[2025-02-06] MEDS: MELATONIN 3 MG TABLET PO (21:36)
[2025-02-06 21:41] LABS: Vancomycin, Random Level 21.4 ug/mL (0.0-15.0)
--- NOTE | 2025-02-06 22:19 | PHA.PHARE_ITS ---
Consult Antibiotic Management Pharmacy has been consulted to manage selected antibiotic: Vancomycin Type of Intervention Type of Consult: Follow-up Suspected Infection Suspected Infection: Sepsis, Skin/Soft tissue and Pneumonia Prior Doses of Antibiotics Prior Doses of Antibiotics Received/Current Regimen: Vancomycin 1250 mg Q12H last dose given 02/06/25 @ 0219 Labs Labs: Sodium 141 mmol/L (133-145) 02/06/25 05:18 Potassium 3.9 mmol/L (3.3-5.1) 02/06/25 05:18 Chloride 109 mmol/L (98-108) H 02/06/25 05:18 Carbon Dioxide 21.2 mmol/L (21.0-32.0) 02/06/25 05:18 Anion Gap 11 (5-15) 02/06/25 05:18 BUN 40 mg/dL (4-19) H 02/06/25 05:18 Creatinine 1.83 mg/dL (0.70-1.20) H 02/06/25 05:18 Est GFR (MDRD) Non-Af 38 (>60) L 02/06/25 05:18 BUN/Creatinine Ratio 22.0 RATIO (10-20) H 02/06/25 05:18 Glucose 150 mg/dL (70-99) H 02/06/25 05:18 Vancomycin Trough 25.9 ug/mL (5.0-15.0) H 02/06/25 09:30 Random Vancomycin 21.4 ug/mL (0.0-15.0) H 02/06/25 21:00 Microbiology Microbiology: Microbiology 02/05/25 Unknown Tissue - Toe Gram Stain - Final 02/05/25 Unknown Tissue - Toe Gram Stain - Final 02/03/25 18:00 Wound - Left Foot Gram Stain - Final 02/03/25 18:00 Wound - Left Foot Wound Culture - Preliminary Meth. resistant Staph. 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 02/05/25 00:05 Nasal Secretion MRSA (PCR) - Final 02/02/25 21:25 Urine, Catheterized Urine Culture - Final Culture exhibits no growth. 02/02/25 20:42 Blood Culture (Wb) - Right Wrist Blood Culture - Preliminary No growth in 48 hours. 02/02/25 19:56 Blood Culture (Wb) - Left Hand Blood Culture - Preliminary No growth in 48 hours. 02/03/25 01:36 Mucosa - Nasopharyngeal Respiratory Panel (PCR) - Final 02/02/25 21:25 Urine, Clean Catch Legionella Antigen - Final 02/02/25 21:25 Urine, Clean Catch Streptococcus pneumoniae Antigen (M - Final Dosing Weight Weight used for dosin lb 5.601 oz Estimated Creatinine Clearance Estimated Creatinine Clearance: ~ 45 Goal Trough Goal Trough: 15-20 mcg/mL Pharmacy Plan for Drug Dosing Pharmacy Plan for Drug Dosing: Vancomycin random = 21.4, continue to hold, subsequent random level in the AM. Pharmacy Service will continue to monitor and adjust dosing as required. Follow-Up Labs Follow-Up Labs: Trough: Vancomycin Date/Time Labs Ordered Labs to be done on [date and time ordered]: 02/07/25 @ 0600
[2025-02-07 03:31] VITALS: BMI 36.0
[2025-02-07 03:48] VITALS: BP 153/61; PULSE 62; RESP 20; TEMP 36.8; O2SAT 94
[2025-02-07 05:59] LABS: Hematocrit 29.6 % (40-54); Hemoglobin 9.5 g/dL (13.0-16.5); Immature Granulocytes Count 0.170 X10^3/uL (0.0-0.0); Mean Corp Hgb Conc 32.1 g/dL (32-36); Mean Corpuscular Volume 85.5 fL (80-94); Mean Platelet Vol. 9.0 fl (6.2-12.0); NRBC Flagged by Analyzer 0 % (0-5); Platelet Count 258 K/mm3 (150-450); RBC Distribution Width CV 13.6 % (11.6-14.6); RBC Distribution Width SD 42.4 fl (35.1-43.9); Red Blood Count 3.46 M/mm3 (4.6-6.2); White Blood Count 9.2 K/mm3 (4.4-11.0)
[2025-02-07] MEDS: Piperacil/Tazobactam 3.375 GM in 0.9% Normal Saline (50mL MB+) 50 ML IV ×3 (06:19→21:47)
[2025-02-07 06:30] LABS: Vancomycin, Random Level 17.6 ug/mL (0.0-15.0)
[2025-02-07 06:33] LABS: Anion Gap 10 (5-15); BUN 40 mg/dL (4-19); BUN/Creat Ratio 22.7 RATIO (10-20); Calcium,Total 8.7 mg/dL (7.6-11.0); Carbon Dioxide 22.6 mmol/L (21.0-32.0); Chloride 109 mmol/L (98-108); Estimated Creatinine Clearance 47.38 ml/min (50-250); Glucose 150 mg/dL (70-99); Potassium 3.8 mmol/L (3.3-5.1)
--- NOTE | 2025-02-07 06:50 | PCM.RX.CS ---
Consult Antibiotic Management Pharmacy has been consulted to manage selected antibiotic: Vancomycin Type of Intervention Type of Consult: Follow-up Suspected Infection Suspected Infection: Sepsis, Skin/Soft tissue and Pneumonia Prior Doses of Antibiotics Prior Doses of Antibiotics Received/Current Regimen: Vancomycin 1250 mg Q12H last dose given 02/06/25 @ 0219 Labs Labs: Sodium 142 mmol/L (133-145) 02/07/25 05:46 Potassium 3.8 mmol/L (3.3-5.1) 02/07/25 05:46 Chloride 109 mmol/L (98-108) H 02/07/25 05:46 Carbon Dioxide 22.6 mmol/L (21.0-32.0) 02/07/25 05:46 Anion Gap 10 (5-15) 02/07/25 05:46 BUN 40 mg/dL (4-19) H 02/07/25 05:46 Creatinine 1.75 mg/dL (0.70-1.20) H 02/07/25 05:46 Est GFR (MDRD) Non-Af 40 (>60) L 02/07/25 05:46 BUN/Creatinine Ratio 22.7 RATIO (10-20) H 02/07/25 05:46 Glucose 150 mg/dL (70-99) H 02/07/25 05:46 Vancomycin Trough 25.9 ug/mL (5.0-15.0) H 02/06/25 09:30 Random Vancomycin 17.6 ug/mL (0.0-15.0) H 02/07/25 05:46 Microbiology Microbiology: Microbiology 02/03/25 18:00 Wound - Left Foot Gram Stain - Final 02/03/25 18:00 Wound - Left Foot Wound Culture - Final Meth. resistant Staph. aureus Enterobacter cloacae complex Corynebacterium striatum 02/03/25 18:00 Wound - Left Foot Anaerobic Culture - Preliminary Checking for anaerobes, further studies to follow. 02/05/25 Unknown Tissue - Toe Gram Stain - Final 02/05/25 Unknown Tissue - Toe Gram Stain - Final 02/05/25 00:05 Nasal Secretion MRSA (PCR) - Final 02/02/25 21:25 Urine, Catheterized Urine Culture - Final Culture exhibits no growth. 02/02/25 20:42 Blood Culture (Wb) - Right Wrist Blood Culture - Preliminary No growth in 48 hours. 02/02/25 19:56 Blood Culture (Wb) - Left Hand Blood Culture - Preliminary No growth in 48 hours. 02/03/25 01:36 Mucosa - Nasopharyngeal Respiratory Panel (PCR) - Final 02/02/25 21:25 Urine, Clean Catch Legionella Antigen - Final 02/02/25 21:25 Urine, Clean Catch Streptococcus pneumoniae Antigen (M - Final Dosing Weight Weight used for dosin lb 12.149 oz Estimated Creatinine Clearance Estimated Creatinine Clearance: ~ 47 Goal Trough Goal Trough: 15-20 mcg/mL Pharmacy Plan for Drug Dosing Pharmacy Plan for Drug Dosing: Vancomycin random level = 17.6, resume dosing at 750 mg Q12H Pharmacy Service will continue to monitor and adjust dosing as required. Follow-Up Labs Follow-Up Labs: Trough: Vancomycin Date/Time Labs Ordered Labs to be done on [date and time ordered]: 02/08/25 @ 6538
[2025-02-07] MEDS: Vancomycin HCl 750 MG in 0.9% Normal Saline (250mL Bag) 250 ML 250 MG IV ×2 (06:56→18:35)
[2025-02-07 07:39] VITALS: O2SAT 94
--- NOTE | 2025-02-07 09:13 | PCM.PROGNOTE ---
Subjective Subjective Patient was seen this morning for follow up on left foot. He is resting in bed. No new issues. Objective Data Objective Data Vital Signs: Vital Signs Temp Pulse Resp BP Pulse Ox O2 Del Method O2 Flow Rate 98.3 F 62 20 H 153/61 H 94 Nasal Cannula 3 02/07/25 03:48 02/07/25 03:48 02/07/25 03:48 02/07/25 03:48 02/07/25 07:39 02/07/25 07:39 02/07/25 07:39 Oxygen Flow Rate (L/min) 3 Oxygen Delivery Method Nasal Cannula Weight: 120.5 kg Body Mass Index (BMI) 36.0 Intake & Output: Intake and Output for Last 24 Hours 02/05/25 02/06/25 02/07/25 23:59 23:59 23:59 Intake Total 1170.25 / 1270.25 2872.5 / 2872.5 315 / 315 Output Total / 2009 1850 / 1850 1650 / 1650 Balance 260.25 / -739.75 1022.5 / 1022.5 -1335 / -1335 Lab / Micro Data 02/07/25 05:46 02/07/25 05:46 Labs: Laboratory Results - last 24 hr 02/06/25 09:30: Vancomycin Trough 25.9 H 02/06/25 12:43: POC Glucose 186 H 02/06/25 17:00: POC Glucose 140 H 02/06/25 21:00: Random Vancomycin 21.4 H 02/06/25 21:35: POC Glucose 169 H 02/07/25 05:46: WBC 9.2, RBC 3.46 L, Hgb 9.5 L, Hct 29.6 L, MCV 85.5, MCH 27.5, MCHC 32.1, RDW Std Deviation 42.4, RDW Coeff of Nathaniel 13.6, Plt Count 258, MPV 9.0, Immature Gran % (Auto) 1.900 H, Neut % (Auto) 66.1, Lymph % (Auto) 15.0 L, [place] % (Auto) 9.5, Eos % (Auto) 6.8 H, Baso % (Auto) 0.7, Absolute Neuts (auto) 6.1, Absolute Lymphs (auto) 1.37, Nucleated RBC % 0, Sodium 142, Potassium 3.8, Chloride 109 H, Carbon Dioxide 22.6, Anion Gap 10, BUN 40 H, Creatinine 1.75 H, Estim Creat Clear Calc 47.38 L, Est GFR (MDRD) Non-Af 40 L, BUN/Creatinine Ratio 22.7 H, Glucose 150 H, Calcium 8.7, Random Vancomycin 17.6 H 02/07/25 06:23: POC Glucose 146 H Micro: Microbiology 02/05/25 Unknown Tissue - Toe Gram Stain - Final 02/05/25 Unknown Tissue - Toe Wound Culture - Preliminary Coag Negative Staph Coag Negative Staph#2 02/05/25 Unknown Tissue - Toe Gram Stain - Final 02/05/25 Unknown Tissue - Toe Wound Culture - Preliminary No growth-Final to follow 02/03/25 18:00 Wound - Left Foot Gram Stain - Final 02/03/25 18:00 Wound - Left Foot Wound Culture - Final Meth. resistant Staph. aureus Enterobacter cloacae complex Corynebacterium striatum 02/03/25 18:00 Wound - Left Foot Anaerobic Culture - Preliminary Checking for anaerobes, further studies to follow. 02/05/25 00:05 Nasal Secretion MRSA (PCR) - Final 02/02/25 21:25 Urine, Catheterized Urine Culture - Final Culture exhibits no growth. 02/02/25 20:42 Blood Culture (Wb) - Right Wrist Blood Culture - Preliminary No growth in 48 hours. 02/02/25 19:56 Blood Culture (Wb) - Left Hand Blood Culture - Preliminary No growth in 48 hours. 02/03/25 01:36 Mucosa - Nasopharyngeal Respiratory Panel (PCR) - Final 02/02/25 21:25 Urine, Clean Catch Legionella Antigen - Final 02/02/25 21:25 Urine, Clean Catch Streptococcus pneumoniae Antigen (M - Final Physical Exam Const alert and no apparent distress Constitutional Narrative: s/p left foot 5th ray debridement - there is hemostasis achieved, the wound site is viable, no purulence, no visible abscess, the cellulitis left foot continues to improve, improved CFT left 5th toe, no new open wounds present or acute ischemia to left foot. No pain to left foot. Assessment & Plan Assessment/Plan (1) Cellulitis of left lower limb: (2) Acute osteomyelitis of metatarsal bone of left foot: (3) Diabetes mellitus with diabetic polyneuropathy: (4) Type 2 diabetes mellitus with foot ulcer: PLAN: Plan Reviewed diagnostic data. s/p left foot 5th ray debridement on 02/05/2025. Infection significantly improved left foot. Will continue to monitor. Vascular surgery is on consult and planning to get CTA. Patient remains on IV antibiotic therapy - Vanc and Zosyn. Reviewed culture findings, clearance fragment left 5th metatarsal and toe with no growth so far. No weightbearing left foot. Keep offloaded at all times. Podiatry will continue to follow.
--- NOTE | 2025-02-07 09:18 | PCM.PN.HOSP ---
Subjective Subjective Doing well, wound looks well. Awaiting CT angio tomorrow to evaluate blood flow for possible further intervention Objective Data Objective Data Vital Signs: Vital Signs Temp Pulse Resp BP Pulse Ox O2 Del Method O2 Flow Rate 98.3 F 62 20 H 153/61 H 94 Nasal Cannula 3 02/07/25 03:48 02/07/25 03:48 02/07/25 03:48 02/07/25 03:48 02/07/25 07:39 02/07/25 07:39 02/07/25 07:39 Oxygen Flow Rate (L/min) 3 Oxygen Delivery Method Nasal Cannula Weight: 265 lb 10.512 oz Body Mass Index (BMI) 36.0 Intake & Output: Intake and Output for Last 24 Hours 02/06/25 02/07/25 02/08/25 03:59 03:59 03:59 Intake Total 686.5 / 961.5 2772.5 / 2772.5 265 / 265 Output Total 2009 1200 / 1200 1200 / 1200 Balance -1323.5 / -1048.5 1572.5 / 1572.5 -935 / -935 Lab / Micro Data 02/07/25 05:46 02/07/25 05:46 Labs: Laboratory Results - last 24 hr 02/06/25 09:30: Vancomycin Trough 25.9 H 02/06/25 12:43: POC Glucose 186 H 02/06/25 17:00: POC Glucose 140 H 02/06/25 21:00: Random Vancomycin 21.4 H 02/06/25 21:35: POC Glucose 169 H 02/07/25 05:46: WBC 9.2, RBC 3.46 L, Hgb 9.5 L, Hct 29.6 L, MCV 85.5, MCH 27.5, MCHC 32.1, RDW Std Deviation 42.4, RDW Coeff of Nathaniel 13.6, Plt Count 258, MPV 9.0, Immature Gran % (Auto) 1.900 H, Neut % (Auto) 66.1, Lymph % (Auto) 15.0 L, [place] % (Auto) 9.5, Eos % (Auto) 6.8 H, Baso % (Auto) 0.7, Absolute Neuts (auto) 6.1, Absolute Lymphs (auto) 1.37, Nucleated RBC % 0, Sodium 142, Potassium 3.8, Chloride 109 H, Carbon Dioxide 22.6, Anion Gap 10, BUN 40 H, Creatinine 1.75 H, Estim Creat Clear Calc 47.38 L, Est GFR (MDRD) Non-Af 40 L, BUN/Creatinine Ratio 22.7 H, Glucose 150 H, Calcium 8.7, Random Vancomycin 17.6 H 02/07/25 06:23: POC Glucose 146 H Micro: Microbiology 02/03/25 18:00 Wound - Left Foot Gram Stain - Final 02/03/25 18:00 Wound - Left Foot Wound Culture - Final Meth. resistant Staph. aureus Enterobacter cloacae complex Corynebacterium striatum 02/03/25 18:00 Wound - Left Foot Anaerobic Culture - Final No anaerobic bacteria isolated. 02/05/25 Unknown Tissue - Toe Gram Stain - Final 02/05/25 Unknown Tissue - Toe Wound Culture - Preliminary Coag Negative Staph Coag Negative Staph#2 02/05/25 Unknown Tissue - Toe Gram Stain - Final 02/05/25 Unknown Tissue - Toe Wound Culture - Preliminary No growth-Final to follow 02/05/25 00:05 Nasal Secretion MRSA (PCR) - Final 02/02/25 21:25 Urine, Catheterized Urine Culture - Final Culture exhibits no growth. 02/02/25 20:42 Blood Culture (Wb) - Right Wrist Blood Culture - Preliminary No growth in 48 hours. 02/02/25 19:56 Blood Culture (Wb) - Left Hand Blood Culture - Preliminary No growth in 48 hours. 02/03/25 01:36 Mucosa - Nasopharyngeal Respiratory Panel (PCR) - Final 02/02/25 21:25 Urine, Clean Catch Legionella Antigen - Final 02/02/25 21:25 Urine, Clean Catch Streptococcus pneumoniae Antigen (M - Final Physical Exam Narrative General: Alert, Oriented x1-2, Cooperative, No apparent distress HEENT: Atraumatic, PERRLA, EOMI, Normocephalic Oral: Moist Mucosa Neck: Supple, No JVD Lungs: Diminished, Normal air movement, No rhonchi, No wheeze, No rales Cardiovascular: Regular rate, Regular Rhythm, Normal S1, Normal S2, No murmurs Abdomen: Soft, Non Tender, Non-Distended, No Hepato-splenomegaly Extremities: No edema, Capillary Refill Less than 3 Seconds Skin: Postop dressing intact wound not evaluated as it was just dressed by podiatry Musculoskeletal: No Tenderness to Palpation of Joints or Extremities Neurological: No focal neurological deficits, moves all extremities Psych/Mental Status: Normal affect Assessment & Plan Assessment/Plan (1) Pneumonia: PLAN: Plan 1. Sepsis secondary to left sided pneumonia as well as diabetic foot ulcer on the left status post left fifth ray resection 02/05/2025/ANTHONY ? Continue with broad-spectrum antibiotics ? Appreciate podiatry's assistance plan for surgical intervention today. ? Will wean oxygen as able ? Cultures are pending, plan for infectious disease consultation on Saturday ? MRI was read as negative for osteomyelitis after surgery ? JOSTIN on the right is 0.88 with a left JOSTIN of 1.05, podiatry is consulted vascular surgery ? Creatinine has climbed to 1.83, will start him on IV fluids as it does not appear that he is obtaining significant p.o. intake. Appreciate speech therapy. Baseline creatinine is 1.1 2. Paroxysmal A-fib/history of AAA status post repair 2006/essential HTN/HLD/history of sick sinus syndrome status post pacemaker placement ? Continue with his home blood pressure medications ? Blood pressures appear stable ? Continue with cholesterol medications ? Can resume his home Eliquis ? Echo on 02/12/2023 with an EF of 55 to 60% with mild MV insufficiency, he does have a history of aortic valve replacement 3. DM2 ? Hold his home oral medications ? Continue with insulin ? Accu-Cheks ACHS ? Continue with sliding scale insulin ? Will monitor and make adjustments as necessary 4. GERD with a history of GI bleed ? He had been transitioned from Coumadin to Eliquis ? Continue with PPI and Carafate 5. Dementia/anxiety/depression ? Stable, his dementia may be a little bit worse secondary to the infection ? Continue with his home medications 6. BPH with obstruction ? Continue with his Flomax ? Stable 7. Iron deficiency anemia ? Stable ? Continue to monitor ? Continue with iron supplementation DVT: Eliquis Charges/Coding Visit Charges Inpatient E&M: 82245 Subs Hosp L2
[2025-02-07 09:45] VITALS: BP 165/73; PULSE 66; RESP 20; TEMP 37.1; O2SAT 98
[2025-02-07 10:36] VITALS: PULSE 66
[2025-02-07] MEDS: Metoprolol(XL)Succ 25 MG Tablet PO (10:36)
[2025-02-07] MEDS: APIXABAN 5 MG TABLET PO (10:36)
[2025-02-07] MEDS: Memantine Hydrochloride 10 MG Tablet PO ×2 (10:37→21:46)
[2025-02-07] MEDS: Insulin Glargine-YFGN 100 UNIT/ML Pen 15 UNIT SC (10:37)
[2025-02-07] MEDS: Lactated Ringers 1,000 ML 15 ML IV (12:41)
[2025-02-07] MEDS: 0.9% Normal Saline (1000mL) 1,000 ML 75 ML IV (13:49)
[2025-02-07 15:45] VITALS: BP 143/63; PULSE 67; RESP 18; TEMP 37.1; O2SAT 94
[2025-02-07 21:42] VITALS: BP 151/90; PULSE 67; RESP 18; TEMP 36.7; O2SAT 96
[2025-02-08 02:34] VITALS: BMI 36.2
[2025-02-08] MEDS: 0.9% Normal Saline (1000mL) 1,000 ML 75 ML IV ×2 (03:22→20:01)
[2025-02-08 03:26] VITALS: BP 153/59; PULSE 60; RESP 18; TEMP 36.6; O2SAT 94
[2025-02-08 05:38] LABS: Hematocrit 29.3 % (40-54); Hemoglobin 9.6 g/dL (13.0-16.5); Immature Granulocytes Count 0.150 X10^3/uL (0.0-0.0); Mean Corp Hgb Conc 32.8 g/dL (32-36); Mean Corpuscular Volume 84.9 fL (80-94); Mean Platelet Vol. 8.8 fl (6.2-12.0); NRBC Flagged by Analyzer 0 % (0-5); Platelet Count 263 K/mm3 (150-450); RBC Distribution Width CV 13.7 % (11.6-14.6); RBC Distribution Width SD 42.7 fl (35.1-43.9); Red Blood Count 3.45 M/mm3 (4.6-6.2); White Blood Count 10.9 K/mm3 (4.4-11.0)
[2025-02-08] MEDS: Piperacil/Tazobactam 3.375 GM in 0.9% Normal Saline (50mL MB+) 50 ML IV ×3 (05:59→22:09)
[2025-02-08] MEDS: Vancomycin HCl 750 MG in 0.9% Normal Saline (250mL Bag) 250 ML 250 MG IV (06:00)
[2025-02-08 06:02] LABS: Anion Gap 9 (5-15); BUN 33 mg/dL (4-19); BUN/Creat Ratio 19.1 RATIO (10-20); Calcium,Total 8.9 mg/dL (7.6-11.0); Carbon Dioxide 24.2 mmol/L (21.0-32.0); Chloride 110 mmol/L (98-108); Estimated Creatinine Clearance 48.63 ml/min (50-250); Glucose 156 mg/dL (70-99); Potassium 3.8 mmol/L (3.3-5.1)
--- NOTE | 2025-02-08 08:27 | PN.HOSP_ITS ---
Subjective Subjective Doing well, no issues overnight. Awaiting evaluation by vascular surgery and ID Objective Data Objective Data Vital Signs: Vital Signs Temp Pulse Resp BP Pulse Ox O2 Del Method O2 Flow Rate 97.9 F 60 18 153/59 H 94 Nasal Cannula 3 02/08/25 03:26 02/08/25 03:26 02/08/25 03:26 02/08/25 03:26 02/08/25 03:26 02/08/25 07:31 02/08/25 07:31 Oxygen Flow Rate (L/min) 3 Oxygen Delivery Method Nasal Cannula Weight: 267 lb 3.204 oz Body Mass Index (BMI) 36.2 Intake & Output: Intake and Output for Last 24 Hours 02/07/25 02/08/25 02/09/25 03:59 03:59 03:59 Intake Total 2772.5 / 2772.5 3300 / 3300 260.5 / 260.5 Output Total 1200 / 1200 4590 / 4590 1300 / 1300 Balance 1572.5 / 1572.5 -1290 / -1290 -1039.5 / -1039.5 Lab / Micro Data 02/08/25 05:22 02/08/25 05:22 Labs: Laboratory Results - last 24 hr 02/07/25 10:34: POC Glucose 156 H 02/07/25 16:50: POC Glucose 143 H 02/07/25 21:44: POC Glucose 174 H 02/08/25 05:22: WBC 10.9, RBC 3.45 L, Hgb 9.6 L, Hct 29.3 L, MCV 84.9, MCH 27.8, MCHC 32.8, RDW Std Deviation 42.7, RDW Coeff of Nathaniel 13.7, Plt Count 263, MPV 8.8, Immature Gran % (Auto) 1.400 H, Neut % (Auto) 72.7 H, Lymph % (Auto) 11.5 L , [place] % (Auto) 9.5, Eos % (Auto) 4.6, Baso % (Auto) 0.3, Absolute Neuts (auto) 7.9 H, Absolute Lymphs (auto) 1.25, Nucleated RBC % 0, Sodium 143, Potassium 3.8, Chloride 110 H, Carbon Dioxide 24.2, Anion Gap 9, BUN 33 H, Creatinine 1.71 H, Estim Creat Clear Calc 48.63 L, Est GFR (MDRD) Non-Af 41 L, BUN/Creatinine Ratio 19.1, Glucose 156 H, Calcium 8.9 02/08/25 05:56: POC Glucose 145 H Micro: Microbiology 02/02/25 20:42 Blood Culture (Wb) - Right Wrist Blood Culture - Final No growth in 5 days. 02/02/25 19:56 Blood Culture (Wb) - Left Hand Blood Culture - Final No growth in 5 days. 02/03/25 18:00 Wound - Left Foot Gram Stain - Final 02/03/25 18:00 Wound - Left Foot Wound Culture - Final Meth. resistant Staph. aureus Enterobacter cloacae complex Corynebacterium striatum 02/03/25 18:00 Wound - Left Foot Anaerobic Culture - Final No anaerobic bacteria isolated. 02/05/25 Unknown Tissue - Toe Gram Stain - Final 02/05/25 Unknown Tissue - Toe Wound Culture - Preliminary Coag Negative Staph Coag Negative Staph#2 02/05/25 Unknown Tissue - Toe Gram Stain - Final 02/05/25 Unknown Tissue - Toe Wound Culture - Preliminary No growth-Final to follow 02/05/25 00:05 Nasal Secretion MRSA (PCR) - Final 02/02/25 21:25 Urine, Catheterized Urine Culture - Final Culture exhibits no growth. 02/03/25 01:36 Mucosa - Nasopharyngeal Respiratory Panel (PCR) - Final 02/02/25 21:25 Urine, Clean Catch Legionella Antigen - Final 02/02/25 21:25 Urine, Clean Catch Streptococcus pneumoniae Antigen (M - Final Physical Exam Narrative General: Alert, Oriented x1-2, Cooperative, No apparent distress HEENT: Atraumatic, PERRLA, EOMI, Normocephalic Oral: Moist Mucosa Neck: Supple, No JVD Lungs: Diminished, Normal air movement, No rhonchi, No wheeze, No rales Cardiovascular: Regular rate, Regular Rhythm, Normal S1, Normal S2, No murmurs Abdomen: Soft, Non Tender, Non-Distended, No Hepato-splenomegaly Extremities: No edema, Capillary Refill Less than 3 Seconds Skin: Postop dressing intact wound not evaluated as it was just dressed by podiatry Musculoskeletal: No Tenderness to Palpation of Joints or Extremities Neurological: No focal neurological deficits, moves all extremities Psych/Mental Status: Normal affect Assessment & Plan Assessment/Plan (1) Pneumonia: PLAN: Plan 1. Sepsis secondary to left sided pneumonia as well as diabetic foot ulcer on the left status post left fifth ray resection 02/05/2025/ANTHONY ? Continue with broad-spectrum antibiotics ? Appreciate podiatry's assistance plan for surgical intervention today. ? Will wean oxygen as able ? Wound cultures from the are showing Enterobacter, corynebacterium, and MRSA surgical cultures are still pending ? MRI was read as negative for osteomyelitis ? JOSTIN on the right is 0.88 with a left JOSTIN of 1.05, podiatry is consulted vascular surgery ? Creatinine has been at 1.83, will start him on IV fluids as it does not appear that he is obtaining significant p.o. intake. Appreciate speech therapy. Baseline creatinine is 1.1 2. Paroxysmal A-fib/history of AAA status post repair 2006/essential HTN/HLD/history of sick sinus syndrome status post pacemaker placement ? Continue with his home blood pressure medications ? Blood pressures appear stable ? Continue with cholesterol medications ? Can resume his home Eliquis ? Echo on 02/12/2023 with an EF of 55 to 60% with mild MV insufficiency, he does have a history of aortic valve replacement 3. DM2 ? Hold his home oral medications ? Continue with insulin ? Accu-Cheks ACHS ? Continue with sliding scale insulin ? Will monitor and make adjustments as necessary 4. GERD with a history of GI bleed ? He had been transitioned from Coumadin to Eliquis ? Continue with PPI and Carafate 5. Dementia/anxiety/depression ? Stable, his dementia may be a little bit worse secondary to the infection ? Continue with his home medications 6. BPH with obstruction ? Continue with his Flomax ? Stable 7. Iron deficiency anemia ? Stable ? Continue to monitor ? Continue with iron supplementation DVT: Eliquis Charges/Coding Visit Charges Inpatient E&M: 82177 Subs Hosp L2
[2025-02-08 09:51] VITALS: BP 152/70; PULSE 65; RESP 20; TEMP 37.1; O2SAT 96
[2025-02-08 09:54] VITALS: PULSE 65
[2025-02-08] MEDS: Metoprolol(XL)Succ 25 MG Tablet PO (09:54)
[2025-02-08] MEDS: Memantine Hydrochloride 10 MG Tablet PO ×2 (09:55→22:08)
--- NOTE | 2025-02-08 11:02 | CASEMGMT ---
Updated clinicals sent to [facility] via [facility]
--- NOTE | 2025-02-08 11:41 | WOUNDNOTE ---
wound photo: left lateral foot
--- NOTE | 2025-02-08 11:41 | WOUNDNOTE ---
wound photo: left foot
[2025-02-08 14:39] VITALS: BP 159/60; PULSE 63; RESP 22; TEMP 37.3; O2SAT 96
--- NOTE | 2025-02-08 15:32 | PCM.CONS.GEN ---
Assessment & Plan Assessment/Plan (1) Acute osteomyelitis of metatarsal bone of left foot: PLAN: Taken to OR 02/05/[address] Mejia for L 5th toe amp and debridement L 5th metatarsal. Clearance cx neg so far. Surg cx with CoNS x2, staph aureus. 02/03/25 wound cx with MRSA, enterobacter, and corynebacter. Cont vanc/zosyn. Will follow, thank you (2) Diabetes mellitus with diabetic polyneuropathy: (3) PAD (peripheral artery disease): HPI Consult Data Date of Consult: 02/08/25 HPI Narrative Reason for Consultation: osteo HPI Narrative: RICHARD ROY, is a 79 M with h/o BPH, CKD, AAA repair, AVR, DM, and dementia, presented 02/02 with confusion, fever, and redness to L foot. Admitted on vanc/zosyn. Seen by podiatry and vascular. Taken to OR 02/05/[address] Mejia for amputation L 5th toe. Feeling ok today, no fever overnight. Unable to do full ROS due to mental status [facility] History MRSA (methicillin resistant staph aureus) culture positive History of stress test History of echocardiogram Cardiology follow-up encounter Uses wheelchair Difficulty swallowing History of ulceration History of GI bleed History of renal disease Prostate disease Pulmonary embolism High cholesterol Atrial tachycardia Anxiety Depression Kidney stones GI bleed Non-smoker Atrial fibrillation AAA (abdominal aortic aneurysm) Dementia Bacteremia Subtherapeutic international normalized ratio (INR) UTI (urinary tract infection) Presence of cardiac pacemaker Sick sinus syndrome Anemia Second degree AV block, Mobitz type II Supratherapeutic INR Syncope Acute encephalopathy Weakness Confusion History of pulmonary embolism NSTEMI, initial episode of care Valvular heart disease Amputation of right great toe Leukocytosis Hyperkalemia COVID-19 Ureterolithiasis Diabetes Aortic aneurysm without rupture HTN (hypertension) Lactic acidosis Upper gastrointestinal bleed Diabetic neuropathy Osteomyelitis Ulcer of right great toe due to diabetes mellitus Pulmonary emboli HLD (hyperlipidemia) RBBB (right bundle 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) Home Medications ?Medication ?Instructions ?Recorded ?Last Taken ?Type losartan 50 mg tablet 50 mg PO DAILY blood pressure 03/24/18 06/01/24 History atorvastatin 40 mg tablet 40 mg PO QHS cholesterol 05/22/18 05/31/24 History tamsulosin 0.4 mg capsule 0.4 mg PO QHS PROSTATE 03/02/22 05/31/24 History cholecalciferol (vitamin D3) 1,250 1,250 mcg PO MO SUPPLEMENT 01/21/23 06/01/24 History mcg (50,000 unit) tablet metformin 1,000 mg tablet 1,000 mg PO BID DM 01/21/23 06/01/24 History insulin glargine 100 unit/mL (3 15 unit (0.15 mL) subcut DAILY 01/26/23 06/01/24 Rx mL) subcutaneous pen (Lantus diabetes #15 mL Solostar U-100 Insulin) pantoprazole 40 mg tablet,delayed 40 mg PO BID #60 tabs 02/05/23 06/01/24 Rx release sucralfate 1 gram tablet 1 g PO 0700,1100,1600 #90 tabs 02/05/23 06/01/24 Rx melatonin 3 mg tablet 3 mg PO QHS Insomnia 02/10/23 02/10/23 History memantine 10 mg tablet 10 mg PO BID #0 tabs 02/13/23 06/01/24 Rx bisacodyl 10 mg rectal suppository 10 mg CA DAILY PRN constipation 05/30/23 Unknown History loperamide 2 mg capsule 2 mg PO Q4H PRN loose stool 05/30/23 Unknown History (Anti-Diarrheal (loperamide)) acetaminophen 325 mg tablet 650 mg PO .q12hrs PAIN AND FEVER 10/07/23 06/01/24 History ferrous sulfate 325 mg (65 mg 325 mg PO DAILY 10/07/23 06/01/24 History iron) tablet apixaban 5 mg tablet (Eliquis) 5 mg PO BID #60 tabs 03/03/24 05/30/24 Rx paroxetine HCl 30 mg tablet 30 mg PO QDAY 04/07/24 06/01/24 History ipratropium 0.5 mg-albuterol 3 mg 3 ml inhalation Q4H PRN shortness 02/02/25 Unknown History (2.5 mg base)/3 mL nebulization of breath soln metoprolol succinate 25 mg capsule 25 mg PO DAILY 02/02/25 Unknown History sprinkle, ext. release 24 hr ([place] Sprinkle) Allergy/AdvReac Type Severity Reaction Status Date / Time propofol AdvReac Other Verified 02/02/25 19:42 Family History Mother Heart disease Diabetes Hypertension Father Heart disease Surgical History History of AAA (abdominal aortic aneurysm) repair History of foot surgery Hx of abdominal surgery H/O aortic valve repair History of thoracic aortic aneurysm repair Social History housing: shelter current occupational status: retired Smoking Status: Never smoker alcohol intake: never substance use type: does not use Physical Exam Const no apparent distress General Appearance: lethargic HEENT normocephalic and head/scalp atraumatic Eyes PERRL and EOMs intact bilaterally Neck supple and No nodes Resp normal air movement Auscultation: diminished lung sounds Cardio regular rate and regular rhythm GI soft to palpation, non-tender and non-distended Extremity General Extremity: edema Skin Skin Narrative: foot wrapped Neuro CN's II-XII intact bilaterally Lab / Micro Data Attestation: I reviewed the patient's lab results. 02/08/25 05:22 02/08/25 05:22 Labs: Laboratory Results - last 24 hr 02/07/25 16:50: POC Glucose 143 H 02/07/25 21:44: POC Glucose 174 H 02/08/25 05:22: WBC 10.9, RBC 3.45 L, Hgb 9.6 L, Hct 29.3 L, MCV 84.9, MCH 27.8, MCHC 32.8, RDW Std Deviation 42.7, RDW Coeff of Nathaniel 13.7, Plt Count 263, MPV 8.8, Immature Gran % (Auto) 1.400 H, Neut % (Auto) 72.7 H, Lymph % (Auto) 11.5 L, [place] % (Auto) 9.5, Eos % (Auto) 4.6, Baso % (Auto) 0.3, Absolute Neuts (auto) 7.9 H, Absolute Lymphs (auto) 1.25, Nucleated RBC % 0, Sodium 143, Potassium 3.8, Chloride 110 H, Carbon Dioxide 24.2, Anion Gap 9, BUN 33 H, Creatinine 1.71 H, Estim Creat Clear Calc 48.63 L, Est GFR (MDRD) Non-Af 41 L, BUN/Creatinine Ratio 19.1, Glucose 156 H, Calcium 8.9 02/08/25 05:56: POC Glucose 145 H 02/08/25 11:43: POC Glucose 145 H Micro: Microbiology 02/05/25 Unknown Tissue - Toe Gram Stain - Final 02/05/25 Unknown Tissue - Toe Wound Culture - Preliminary Coag Negative Staph Coag Negative Staph#2 Staphylococcus aureus 02/05/25 Unknown Tissue - Toe Anaerobic Culture - Preliminary Checking for anaerobes, further studies to follow. 02/05/25 Unknown Tissue - Toe Gram Stain - Final 02/05/25 Unknown Tissue - Toe Wound Culture - Preliminary No growth-Final to follow 02/05/25 Unknown Tissue - Toe Anaerobic Culture - Preliminary No growth in 48 hours. 02/02/25 20:42 Blood Culture (Wb) - Right Wrist Blood Culture - Final No growth in 5 days. 02/02/25 19:56 Blood Culture (Wb) - Left Hand Blood Culture - Final No growth in 5 days.
[2025-02-08 18:49] LABS: Allen Test Positive; Base Excess 5 mmol/L (-2 to +2); FI02 2.0; PO2 82 mmHG (75-100); SITE R Radial; SO2 96 % (95-99)
--- NOTE | 2025-02-08 19:00 | PN_ITS ---
Subjective Subjective Patient seen today for follow up on left foot. He is sleeping in bed this evening. No fever. at bedside. Objective Data Objective Data Vital Signs: Vital Signs Temp Pulse Resp BP Pulse Ox O2 Del Method O2 Flow Rate 97.1 F L 60 18 153/90 H 94 Nasal Cannula 2 02/08/25 22:04 02/08/25 22:04 02/08/25 22:04 02/08/25 22:04 02/08/25 22:04 02/08/25 22:04 02/08/25 22:04 Oxygen Flow Rate (L/min) 2 Oxygen Delivery Method Nasal Cannula Weight: 121.2 kg Body Mass Index (BMI) 36.2 Intake & Output: Intake and Output for Last 24 Hours 02/06/25 02/07/25 02/08/25 23:59 23:59 23:59 Intake Total 2872.5 / 2872.5 2300 / 2300 2882.79 / 2882.79 Output Total 1850 / 1850 3290 / 5040 3550 / 3550 Balance 1022.5 / 1022.5 -990 / -2740 -667.21 / -667.21 Lab / Micro Data 02/08/25 05:22 02/08/25 05:22 Labs: Laboratory Results - last 24 hr 02/08/25 05:22: WBC 10.9, RBC 3.45 L, Hgb 9.6 L, Hct 29.3 L, MCV 84.9, MCH 27.8, MCHC 32.8, RDW Std Deviation 42.7, RDW Coeff of Nathaniel 13.7, Plt Count 263, MPV 8.8, Immature Gran % (Auto) 1.400 H, Neut % (Auto) 72.7 H, Lymph % (Auto) 11.5 L , [place] % (Auto) 9.5, Eos % (Auto) 4.6, Baso % (Auto) 0.3, Absolute Neuts (auto) 7.9 H, Absolute Lymphs (auto) 1.25, Nucleated RBC % 0, Sodium 143, Potassium 3.8, Chloride 110 H, Carbon Dioxide 24.2, Anion Gap 9, BUN 33 H, Creatinine 1.71 H, Estim Creat Clear Calc 48.63 L, Est GFR (MDRD) Non-Af 41 L, BUN/Creatinine Ratio 19.1, Glucose 156 H, Calcium 8.9 02/08/25 05:56: POC Glucose 145 H 02/08/25 11:43: POC Glucose 145 H 02/08/25 17:00: POC Glucose 141 H 02/08/25 18:25: Vancomycin Trough 20.6 H 02/08/25 22:14: POC Glucose 135 H Micro: Microbiology 02/05/25 Unknown Tissue - Toe Gram Stain - Final 02/05/25 Unknown Tissue - Toe Wound Culture - Preliminary Coag Negative Staph Coag Negative Staph#2 Staphylococcus aureus 02/05/25 Unknown Tissue - Toe Anaerobic Culture - Preliminary Checking for anaerobes, further studies to follow. 02/05/25 Unknown Tissue - Toe Gram Stain - Final 02/05/25 Unknown Tissue - Toe Wound Culture - Preliminary No growth-Final to follow 02/05/25 Unknown Tissue - Toe Anaerobic Culture - Preliminary No growth in 48 hours. 02/02/25 20:42 Blood Culture (Wb) - Right Wrist Blood Culture - Final No growth in 5 days. 02/02/25 19:56 Blood Culture (Wb) - Left Hand Blood Culture - Final No growth in 5 days. 02/03/25 18:00 Wound - Left Foot Gram Stain - Final 02/03/25 18:00 Wound - Left Foot Wound Culture - Final Meth. resistant Staph. aureus Enterobacter cloacae complex Corynebacterium striatum 02/03/25 18:00 Wound - Left Foot Anaerobic Culture - Final No anaerobic bacteria isolated. 02/05/25 00:05 Nasal Secretion MRSA (PCR) - Final 02/02/25 21:25 Urine, Catheterized Urine Culture - Final Culture exhibits no growth. 02/03/25 01:36 Mucosa - Nasopharyngeal Respiratory Panel (PCR) - Final 02/02/25 21:25 Urine, Clean Catch Legionella Antigen - Final 02/02/25 21:25 Urine, Clean Catch Streptococcus pneumoniae Antigen (M - Final ABG Data ABG results: ABG 02/08/25 18:44 Specimen Type ART Sample Site R Radial pH 7.44 Bicarbonate Actual 28.8 H Total CO2 30 Base Excess 5 H O2 Saturation 96 O2 % 2.0 ABG pCO2 42.1 ABG pO2 82 Heriberto Test Positive O2 Delivery Device Cannula Vent Mode Not entered Physical Exam Const no apparent distress Constitutional Narrative: s/p debridement 5th MTPJ, less cellulitis left foot, no evidence of ischemia left foot Assessment & Plan Assessment/Plan (1) Cellulitis of left lower limb: (2) Acute osteomyelitis of metatarsal bone of left foot: (3) Diabetes mellitus with diabetic polyneuropathy: (4) Type 2 diabetes mellitus with foot ulcer: PLAN: Plan Reviewed diagnostic data. s/p left foot 5th ray debridement on 02/05/2025. Infection significantly improved left foot. Will continue to monitor. Patient remains on IV antibiotic therapy - Vanc and Zosyn. Reviewed culture findings, clearance fragment left 5th metatarsal and toe with no growth so far. Infectious Disease on consult. No weightbearing left foot. Keep offloaded at all times. Wound care: betadine gauze to the left lateral foot wound, cover with dry dressing, change daily. Consider wound vac in future - awaiting further vascular surgery recommendations. Vascular surgery is on consult and planning to get CTA. Podiatry will continue to follow. Discussed with Dr. Cervantes and nursing.
[2025-02-08 19:20] LABS: Vancomycin, Trough Level 20.6 ug/mL (5.0-15.0)
--- NOTE | 2025-02-08 19:31 | PCM.RX.CS ---
Consult Antibiotic Management Pharmacy has been consulted to manage selected antibiotic: Vancomycin Type of Intervention Type of Consult: Follow-up Suspected Infection Suspected Infection: Skin/Soft tissue Labs Labs: Sodium 143 mmol/L (133-145) 02/08/25 05:22 Potassium 3.8 mmol/L (3.3-5.1) 02/08/25 05:22 Chloride 110 mmol/L (98-108) H 02/08/25 05:22 Carbon Dioxide 24.2 mmol/L (21.0-32.0) 02/08/25 05:22 Anion Gap 9 (5-15) 02/08/25 05:22 BUN 33 mg/dL (4-19) H 02/08/25 05:22 Creatinine 1.71 mg/dL (0.70-1.20) H 02/08/25 05:22 Est GFR (MDRD) Non-Af 41 (>60) L 02/08/25 05:22 BUN/Creatinine Ratio 19.1 RATIO (10-20) 02/08/25 05:22 Glucose 156 mg/dL (70-99) H 02/08/25 05:22 Vancomycin Trough 20.6 ug/mL (5.0-15.0) H 02/08/25 18:25 Random Vancomycin 17.6 ug/mL (0.0-15.0) H 02/07/25 05:46 Microbiology Microbiology: Microbiology 02/05/25 Unknown Tissue - Toe Gram Stain - Final 02/05/25 Unknown Tissue - Toe Wound Culture - Preliminary Coag Negative Staph Coag Negative Staph#2 Staphylococcus aureus 02/05/25 Unknown Tissue - Toe Anaerobic Culture - Preliminary Checking for anaerobes, further studies to follow. 02/05/25 Unknown Tissue - Toe Gram Stain - Final 02/05/25 Unknown Tissue - Toe Wound Culture - Preliminary No growth-Final to follow 02/05/25 Unknown Tissue - Toe Anaerobic Culture - Preliminary No growth in 48 hours. 02/02/25 20:42 Blood Culture (Wb) - Right Wrist Blood Culture - Final No growth in 5 days. 02/02/25 19:56 Blood Culture (Wb) - Left Hand Blood Culture - Final No growth in 5 days. 02/03/25 18:00 Wound - Left Foot Gram Stain - Final 02/03/25 18:00 Wound - Left Foot Wound Culture - Final Meth. resistant Staph. aureus Enterobacter cloacae complex Corynebacterium striatum 02/03/25 18:00 Wound - Left Foot Anaerobic Culture - Final No anaerobic bacteria isolated. 02/05/25 00:05 Nasal Secretion MRSA (PCR) - Final 02/02/25 21:25 Urine, Catheterized Urine Culture - Final Culture exhibits no growth. 02/03/25 01:36 Mucosa - Nasopharyngeal Respiratory Panel (PCR) - Final 02/02/25 21:25 Urine, Clean Catch Legionella Antigen - Final 02/02/25 21:25 Urine, Clean Catch Streptococcus pneumoniae Antigen (M - Final Pharmacy Plan for Drug Dosing Pharmacy Plan for Drug Dosing: VANCOMYCIN LEVEL RECEIVED Current Vancomycin Dose: 750MG Q12 Number of Doses Received: 8 Vancomycin Level: 20.6 MG/DL Hours Since Last Dose: 12.5 Renal Function: SCr 1.71 mg/dL, CrCl 48 mL/min Renal Function Trend: improved from 1.83 Lab/Micro: wound cx mrsa, repeat with staph Vancomycin Plan/Comments: 20.5 hour trough is slightly supratherapeutic at 20.6 mg/dL (goal 15-20). Will decrease dose to 500mg Q12 but will start later tonight at 2300 to allow level to come down further. Will get a trough prior to 4th dose of new regimen. Pending Level: 02/10/25 @ 1030 Pharmacy Service will continue to monitor and adjust dosing as required.
[2025-02-08] MEDS: Vancomycin HCl 500 MG in 0.9% Normal Saline (100mL Bag) 100 ML 100 MG IV (19:54)
[2025-02-08 22:04] VITALS: BP 153/90; PULSE 60; RESP 18; TEMP 36.2; O2SAT 94
[2025-02-08] MEDS: MELATONIN 3 MG TABLET PO (22:08)
[2025-02-09 03:10] VITALS: BMI 54.1
[2025-02-09 03:53] VITALS: BP 160/67; PULSE 60; RESP 18; TEMP 35.9; O2SAT 94
[2025-02-09] MEDS: Piperacil/Tazobactam 3.375 GM in 0.9% Normal Saline (50mL MB+) 50 ML IV ×3 (06:15→22:47)
[2025-02-09 07:31] VITALS: O2SAT 94
[2025-02-09 07:34] LABS: Hematocrit 32.1 % (40-54); Hemoglobin 9.9 g/dL (13.0-16.5); Immature Granulocytes Count 0.160 X10^3/uL (0.0-0.0); Mean Corp Hgb Conc 30.8 g/dL (32-36); Mean Corpuscular Volume 89.7 fL (80-94); Mean Platelet Vol. 10.4 fl (6.2-12.0); NRBC Flagged by Analyzer 0 % (0-5); POSITIVE COUNT YES; Platelet Count 224 K/mm3 (150-450); RBC Distribution Width CV 13.8 % (11.6-14.6); RBC Distribution Width SD 45.1 fl (35.1-43.9); Red Blood Count 3.58 M/mm3 (4.6-6.2); White Blood Count 9.9 K/mm3 (4.4-11.0)
[2025-02-09 08:00] LABS: Anion Gap 12 (5-15); BUN 24 mg/dL (4-19); BUN/Creat Ratio 14.2 RATIO (10-20); Calcium,Total 9.0 mg/dL (7.6-11.0); Carbon Dioxide 21.6 mmol/L (21.0-32.0); Chloride 110 mmol/L (98-108); Estimated Creatinine Clearance 61.27 ml/min (50-250); Glucose 142 mg/dL (70-99); Potassium 4.1 mmol/L (3.3-5.1)
[2025-02-09 08:33] VITALS: BP 169/67; PULSE 60; RESP 20; TEMP 36.4; O2SAT 94
[2025-02-09 08:37] LABS: Differential Indicated SCAN CRITERIA MET
[2025-02-09] MEDS: APIXABAN 5 MG TABLET PO (08:37)
[2025-02-09 08:38] LABS: Polychromasia 1+
[2025-02-09] MEDS: Memantine Hydrochloride 10 MG Tablet PO ×2 (08:38→21:34)
--- NOTE | 2025-02-09 09:09 | PCM.PN.HOSP ---
Subjective Subjective Doing well, no issues overnight. He was little bit lethargic yesterday afternoon so an ABG was obtained which was normal, lethargy has resolved Objective Data Objective Data Vital Signs: Vital Signs Temp Pulse Resp BP Pulse Ox O2 Del Method O2 Flow Rate 97.6 F L 60 20 H 169/67 H 94 Nasal Cannula 2 02/09/25 08:33 02/09/25 08:33 02/09/25 08:33 02/09/25 08:33 02/09/25 08:33 02/09/25 08:33 02/09/25 08:33 Oxygen Flow Rate (L/min) 2 Oxygen Delivery Method Nasal Cannula Weight: 399 lb 7.642 oz Body Mass Index (BMI) 54.1 Intake & Output: Intake and Output for Last 24 Hours 02/08/25 02/09/25 02/10/25 03:59 03:59 03:59 Intake Total 3300 / 3300 1882.79 / 1882.79 Output Total 4590 / 4590 2750 / 2750 Balance -1290 / -1290 -867.21 / -867.21 Lab / Micro Data 02/09/25 07:02 02/09/25 07:02 Labs: Laboratory Results - last 24 hr 02/08/25 11:43: POC Glucose 145 H 02/08/25 17:00: POC Glucose 141 H 02/08/25 18:25: Vancomycin Trough 20.6 H 02/08/25 22:14: POC Glucose 135 H 02/09/25 06:18: POC Glucose 127 H 02/09/25 07:02: WBC 9.9, RBC 3.58 L, Hgb 9.9 L, Hct 32.1 L, MCV 89.7 D, MCH 27.7, MCHC 30.8 L D, RDW Std Deviation 45.1 H, RDW Coeff of Nathaniel 13.8, Plt Count 224, MPV 10.4, Immature Gran % (Auto) 1.600 H, Neut % (Auto) 75.5 H, Lymph % (Auto) 10.7 L, [place] % (Auto) 7.1, Eos % (Auto) 4.5, Baso % (Auto) 0.6, Absolute Neuts (auto) 7.5, Absolute Lymphs (auto) 1.06, Nucleated RBC % 0, Polychromasia 1+, Sodium 143, Potassium 4.1, Chloride 110 H, Carbon Dioxide 21.6, Anion Gap 12, BUN 24 H, Creatinine 1.70 H, Estim Creat Clear Calc 61.27, Est GFR (MDRD) Non-Af 41 L, BUN/Creatinine Ratio 14.2, Glucose 142 H, Calcium 9.0 Micro: Microbiology 02/05/25 Unknown Tissue - Toe Gram Stain - Final 02/05/25 Unknown Tissue - Toe Wound Culture - Preliminary Coag Negative Staph Coag Negative Staph#2 Staphylococcus aureus 02/05/25 Unknown Tissue - Toe Anaerobic Culture - Preliminary Checking for anaerobes, further studies to follow. 02/05/25 Unknown Tissue - Toe Gram Stain - Final 02/05/25 Unknown Tissue - Toe Wound Culture - Preliminary No growth-Final to follow 02/05/25 Unknown Tissue - Toe Anaerobic Culture - Preliminary No growth in 48 hours. 02/02/25 20:42 Blood Culture (Wb) - Right Wrist Blood Culture - Final No growth in 5 days. 02/02/25 19:56 Blood Culture (Wb) - Left Hand Blood Culture - Final No growth in 5 days. 02/03/25 18:00 Wound - Left Foot Gram Stain - Final 02/03/25 18:00 Wound - Left Foot Wound Culture - Final Meth. resistant Staph. aureus Enterobacter cloacae complex Corynebacterium striatum 02/03/25 18:00 Wound - Left Foot Anaerobic Culture - Final No anaerobic bacteria isolated. 02/05/25 00:05 Nasal Secretion MRSA (PCR) - Final 02/02/25 21:25 Urine, Catheterized Urine Culture - Final Culture exhibits no growth. 02/03/25 01:36 Mucosa - Nasopharyngeal Respiratory Panel (PCR) - Final 02/02/25 21:25 Urine, Clean Catch Legionella Antigen - Final 02/02/25 21:25 Urine, Clean Catch Streptococcus pneumoniae Antigen (M - Final ABG Data ABG results: ABG 02/08/25 18:44 Specimen Type ART Sample Site R Radial pH 7.44 Bicarbonate Actual 28.8 H Total CO2 30 Base Excess 5 H O2 Saturation 96 O2 % 2.0 ABG pCO2 42.1 ABG pO2 82 Heriberto Test Positive O2 Delivery Device Cannula Vent Mode Not entered Physical Exam Narrative General: Alert, Oriented x1-2, Cooperative, No apparent distress HEENT: Atraumatic, PERRLA, EOMI, Normocephalic Oral: Moist Mucosa Neck: Supple, No JVD Lungs: Diminished, Normal air movement, No rhonchi, No wheeze, No rales Cardiovascular: Regular rate, Regular Rhythm, Normal S1, Normal S2, No murmurs Abdomen: Soft, Non Tender, Non-Distended, No Hepato-splenomegaly Extremities: Edema, Capillary Refill Less than 3 Seconds Skin: Postop dressing intact wound not evaluated as it was just dressed by podiatry Musculoskeletal: No Tenderness to Palpation of Joints or Extremities Neurological: No focal neurological deficits, moves all extremities Psych/Mental Status: Normal affect Assessment & Plan Assessment/Plan (1) Pneumonia: PLAN: Plan 1. Sepsis secondary to left sided pneumonia as well as diabetic foot ulcer on the left status post left fifth ray resection 02/05/2025/ANTHONY ? Continue with broad-spectrum antibiotics ? Appreciate podiatry's assistance plan for surgical intervention today. ? Will wean oxygen as able ? Wound cultures from the are showing Enterobacter, corynebacterium, and MRSA ? Surgical cultures with MRSA, and other staph species ? MRI was read as negative for osteomyelitis ? JOSTIN on the right is 0.88 with a left JOSTIN of 1.05, podiatry is consulted vascular surgery ? Creatinine has been at 1.83, will start him on IV fluids as it does not appear that he is obtaining significant p.o. intake. Appreciate speech therapy. Baseline creatinine is 1.1, he is getting over the edematous so we will decrease him to 50 cc/h 2. Paroxysmal A-fib/history of AAA status post repair 2006/essential HTN/HLD/history of sick sinus syndrome status post pacemaker placement ? Continue with his home blood pressure medications ? Blood pressures appear stable ? Continue with cholesterol medications ? Can resume his home Eliquis ? Echo on 02/12/2023 with an EF of 55 to 60% with mild MV insufficiency, he does have a history of aortic valve replacement 3. DM2 ? Hold his home oral medications ? Continue with insulin ? Accu-Cheks ACHS ? Continue with sliding scale insulin ? Will monitor and make adjustments as necessary 4. GERD with a history of GI bleed ? He had been transitioned from Coumadin to Eliquis ? Continue with PPI and Carafate 5. Dementia/anxiety/depression ? Stable, his dementia may be a little bit worse secondary to the infection ? Continue with his home medications 6. BPH with obstruction ? Continue with his Flomax ? Stable 7. Iron deficiency anemia ? Stable ? Continue to monitor ? Continue with iron supplementation DVT: Eliquis Charges/Coding Visit Charges Inpatient E&M: 27135 Subs Hosp L2
[2025-02-09] MEDS: 0.9% Normal Saline (1000mL) 1,000 ML 50 ML IV (09:41)
[2025-02-09 09:54] VITALS: PULSE 60
[2025-02-09] MEDS: Metoprolol(XL)Succ 25 MG Tablet PO (09:54)
--- NOTE | 2025-02-09 10:16 | PCM.PN.ID ---
Physical Exam Narrative Feeling fine, no pain in foot, no fever, no n/v/d Const alert and no apparent distress General Appearance: cooperative Resp normal air movement and clear to auscultation bilaterally Cardio regular rate and regular rhythm GI soft to palpation, non-tender and non-distended Skin Skin Narrative: foot wrapped ID ID: Route of nutrition/ use of supplements: [] Nutritional Intake: [] IV Site: [] Rodrigues Catheter: [] Assessment & Plan Assessment/Plan (1) Acute osteomyelitis of metatarsal bone of left foot: PLAN: Taken to OR 02/05/[address] Mejia for L 5th toe amp and debridement L 5th metatarsal. Clearance cx neg so far. Surg cx with CoNS x2, MRSA. 02/03/25 wound cx with MRSA, enterobacter, and corynebacter. Cont vanc/zosyn. Will follow (2) Diabetes mellitus with diabetic polyneuropathy: (3) PAD (peripheral artery disease):
[2025-02-09] MEDS: Vancomycin HCl 500 MG in 0.9% Normal Saline (100mL Bag) 100 ML 100 MG IV ×2 (11:12→21:28)
[2025-02-09 14:43] VITALS: BP 156/106; PULSE 62; RESP 18; TEMP 36.9; O2SAT 95
--- NOTE | 2025-02-09 18:08 | PCM.PN.SRG ---
Subjective Subjective Resting comfortably, eating dinner. No foot complaints. Tolerating dressing changes Objective Data Objective Data Awake, alert, NAD RRR Resp non labored Wound photos reviewed Vital Signs: Vital Signs Temp Pulse Resp BP Pulse Ox O2 Del Method O2 Flow Rate 98.4 F 62 18 156/106 H 95 Nasal Cannula 2 02/09/25 14:43 02/09/25 14:43 02/09/25 14:43 02/09/25 14:43 02/09/25 14:43 02/09/25 14:43 02/09/25 14:43 Oxygen Flow Rate (L/min) 2 Oxygen Delivery Method Nasal Cannula Weight: 399 lb 7.642 oz Body Mass Index (BMI) 54.1 Intake & Output: Intake and Output for Last 24 Hours 02/07/25 02/08/25 02/09/25 23:59 23:59 23:59 Intake Total 2300 / 2300 2882.79 / 2882.79 1660 / 1660 Output Total 3290 / 5040 4500 / 4500 1500 / 1500 Balance -990 / -2740 -1617.21 / -1617.21 160 / 160 Lab / Micro Data 02/09/25 07:02 02/09/25 07:02 Labs: Laboratory Results - last 24 hr 02/08/25 18:25: Vancomycin Trough 20.6 H 02/08/25 22:14: POC Glucose 135 H 02/09/25 06:18: POC Glucose 127 H 02/09/25 07:02: WBC 9.9, RBC 3.58 L, Hgb 9.9 L, Hct 32.1 L, MCV 89.7 D, MCH 27.7, MCHC 30.8 L D, RDW Std Deviation 45.1 H, RDW Coeff of Nathaniel 13.8, Plt Count 224, MPV 10.4, Immature Gran % (Auto) 1.600 H, Neut % (Auto) 75.5 H, Lymph % (Auto) 10.7 L, [place] % (Auto) 7.1, Eos % (Auto) 4.5, Baso % (Auto) 0.6, Absolute Neuts (auto) 7.5, Absolute Lymphs (auto) 1.06, Nucleated RBC % 0, Polychromasia 1+, Sodium 143, Potassium 4.1, Chloride 110 H, Carbon Dioxide 21.6, Anion Gap 12, BUN 24 H, Creatinine 1.70 H, Estim Creat Clear Calc 61.27, Est GFR (MDRD) Non-Af 41 L, BUN/Creatinine Ratio 14.2, Glucose 142 H, Calcium 9.0 02/09/25 11:14: POC Glucose 145 H 02/09/25 16:17: POC Glucose 140 H Micro: Microbiology 02/05/25 Unknown Tissue - Toe Gram Stain - Final 02/05/25 Unknown Tissue - Toe Wound Culture - Final No growth aerobically. 02/05/25 Unknown Tissue - Toe Anaerobic Culture - Preliminary No growth in 48 hours. 02/05/25 Unknown Tissue - Toe Gram Stain - Final 02/05/25 Unknown Tissue - Toe Wound Culture - Final Staphylococcus simulans Staphylococcus caprae Meth. resistant Staph. aureus 02/05/25 Unknown Tissue - Toe Anaerobic Culture - Preliminary Checking for anaerobes, further studies to follow. 02/02/25 20:42 Blood Culture (Wb) - Right Wrist Blood Culture - Final No growth in 5 days. 02/02/25 19:56 Blood Culture (Wb) - Left Hand Blood Culture - Final No growth in 5 days. 02/03/25 18:00 Wound - Left Foot Gram Stain - Final 02/03/25 18:00 Wound - Left Foot Wound Culture - Final Meth. resistant Staph. aureus Enterobacter cloacae complex Corynebacterium striatum 02/03/25 18:00 Wound - Left Foot Anaerobic Culture - Final No anaerobic bacteria isolated. 02/05/25 00:05 Nasal Secretion MRSA (PCR) - Final 02/02/25 21:25 Urine, Catheterized Urine Culture - Final Culture exhibits no growth. 02/03/25 01:36 Mucosa - Nasopharyngeal Respiratory Panel (PCR) - Final 02/02/25 21:25 Urine, Clean Catch Legionella Antigen - Final 02/02/25 21:25 Urine, Clean Catch Streptococcus pneumoniae Antigen (M - Final ABG Data ABG results: ABG 02/08/25 18:44 Specimen Type ART Sample Site R Radial pH 7.44 Bicarbonate Actual 28.8 H Total CO2 30 Base Excess 5 H O2 Saturation 96 O2 % 2.0 ABG pCO2 42.1 ABG pO2 82 Heriberto Test Positive O2 Delivery Device Cannula Vent Mode Not entered Assessment & Plan Assessment/Plan (1) PAD (peripheral artery disease): PLAN: -wound bed remains unenthusiastic appearing with regards to perfusion -cr remains elevated above baseline -will forgo CT scan at this time -plan for angio with CO2 tomorrow, possible intervention -npo at midnight, hold isai tonight/AM Charges/Coding Visit Charges Inpatient E&M: 16028 Subs Hosp L2
[2025-02-09 21:31] VITALS: BP 149/80; PULSE 62; RESP 18; TEMP 36.9; O2SAT 94
[2025-02-09] MEDS: MELATONIN 3 MG TABLET PO (21:34)
[2025-02-10] VITALS (20 sets, daily range): BP systolic 135–179; BP diastolic 58–85; PULSE 60–67; RESP 16–20; TEMP 36.5–36.9; O2SAT 94–100; BMI 35.6
[2025-02-10] MEDS: Piperacil/Tazobactam 3.375 GM in 0.9% Normal Saline (50mL MB+) 50 ML IV ×3 (05:02→23:58)
[2025-02-10] MEDS: 0.9% Normal Saline (1000mL) 1,000 ML 50 ML IV (05:42)
--- NOTE | 2025-02-10 05:55 | EKG12_ITS ---
Test Reason : PRE-OP Blood Pressure : */* mmHG Vent. Rate : 63 BPM Atrial Rate : 28 BPM P-R Int : 166 ms QRS Dur : 216 ms QT Int : 514 ms P-R-T Axes : * -76 116 degrees QTcB Int : 525 ms AV dual-paced rhythm with occasional Premature ventricular complexes Abnormal ECG When compared with ECG of 02-Feb-2025 20:49, Premature ventricular complexes are now Present Vent. rate has decreased by 28 bpm Confirmed by ANISA COLBERT, YECENIA ([id number]), staff editor LÓPEZ BELTRE ([id number]) on 02/11/2025 6:30:54 AM Referred By: JENNIFER Confirmed By: YECENIA LANGE MD
[2025-02-10 06:06] LABS: Hematocrit 30.5 % (40-54); Hemoglobin 9.7 g/dL (13.0-16.5); Immature Granulocytes Count 0.260 X10^3/uL (0.0-0.0); Mean Corp Hgb Conc 31.8 g/dL (32-36); Mean Corpuscular Volume 86.9 fL (80-94); Mean Platelet Vol. 9.1 fl (6.2-12.0); NRBC Flagged by Analyzer 0 % (0-5); Platelet Count 314 K/mm3 (150-450); RBC Distribution Width CV 13.7 % (11.6-14.6); RBC Distribution Width SD 43.9 fl (35.1-43.9); Red Blood Count 3.51 M/mm3 (4.6-6.2); White Blood Count 11.4 K/mm3 (4.4-11.0)
[2025-02-10 06:19] LABS: Prothrombin Time (Protime)PT. 16.2 SECONDS (11.7-14.9)
[2025-02-10 06:20] LABS: Partial Thromboplast Time 33.4 Seconds (24.1-36.2)
[2025-02-10] MEDS: Metoprolol(XL)Succ 25 MG Tablet PO (06:22)
[2025-02-10 06:32] LABS: Alanine Aminotransfer ALT/SGPT 31 U/L (<=46); Anion Gap 12 (5-15); BUN 28 mg/dL (4-19); BUN/Creat Ratio 16.2 RATIO (10-20); Calcium,Total 9.1 mg/dL (7.6-11.0); Carbon Dioxide 23.0 mmol/L (21.0-32.0); Chloride 108 mmol/L (98-108); Estimated Creatinine Clearance 47.94 ml/min (50-250); Glucose 161 mg/dL (70-99); Potassium 3.7 mmol/L (3.3-5.1)
[2025-02-10 07:05] LABS: AST(SGOT) 15 U/L (<=37)
--- NOTE | 2025-02-10 09:42 | PN.HOSP_ITS ---
Subjective Subjective No issues overnight, pending angiogram today. Will continue with IV fluids as he does have a acute kidney injury Objective Data Objective Data Vital Signs: Vital Signs Temp Pulse Resp BP Pulse Ox O2 Del Method O2 Flow Rate 97.7 F L 60 18 157/64 H 98 Nasal Cannula 2 02/10/25 06:18 02/10/25 06:25 02/10/25 06:18 02/10/25 06:42 02/10/25 08:09 02/10/25 08:09 02/10/25 08:09 Oxygen Flow Rate (L/min) 2 Oxygen Delivery Method Nasal Cannula Weight: 262 lb 12.656 oz Body Mass Index (BMI) 35.6 Intake & Output: Intake and Output for Last 24 Hours 02/09/25 02/10/25 02/11/25 03:59 03:59 03:59 Intake Total 1882.79 / 1882.79 1820 / 1820 1050 / 1050 Output Total 2750 / 2750 2500 / 2500 700 / 700 Balance -867.21 / -867.21 -680 / -680 350 / 350 Lab / Micro Data 02/10/25 05:47 02/10/25 05:47 Labs: Laboratory Results - last 24 hr 02/09/25 11:14: POC Glucose 145 H 02/09/25 16:17: POC Glucose 140 H 02/09/25 21:36: POC Glucose 153 H 02/10/25 05:47: WBC 11.4 H, RBC 3.51 L, Hgb 9.7 L, Hct 30.5 L, MCV 86.9, MCH 27.6, MCHC 31.8 L, RDW Std Deviation 43.9, RDW Coeff of Nathaniel 13.7, Plt Count 314, MPV 9.1, Immature Gran % (Auto) 2.300 H, Neut % (Auto) 73.1 H, Lymph % (Auto) 11.0 L, [place] % (Auto) 8.5, Eos % (Auto) 4.7, Baso % (Auto) 0.4, Absolute Neuts (auto) 8.3 H, Absolute Lymphs (auto) 1.25, Nucleated RBC % 0, PT 16.2 H, INR 1.3, APTT 33.4, Sodium 142, Potassium 3.7, Chloride 108, Carbon Dioxide 23.0, Anion Gap 12, BUN 28 H, Creatinine 1.72 H, Estim Creat Clear Calc 47.94 L, Est GFR (MDRD) Non-Af 40 L, BUN/Creatinine Ratio 16.2, Glucose 161 H, Calcium 9.1, AST 15, ALT 31 02/10/25 06:16: POC Glucose 156 H Micro: Microbiology 02/05/25 Unknown Tissue - Toe Gram Stain - Final 02/05/25 Unknown Tissue - Toe Wound Culture - Final No growth aerobically. 02/05/25 Unknown Tissue - Toe Anaerobic Culture - Preliminary No growth in 48 hours. 02/05/25 Unknown Tissue - Toe Gram Stain - Final 02/05/25 Unknown Tissue - Toe Wound Culture - Final Staphylococcus simulans Staphylococcus caprae Meth. resistant Staph. aureus 02/05/25 Unknown Tissue - Toe Anaerobic Culture - Preliminary Checking for anaerobes, further studies to follow. 02/02/25 20:42 Blood Culture (Wb) - Right Wrist Blood Culture - Final No growth in 5 days. 02/02/25 19:56 Blood Culture (Wb) - Left Hand Blood Culture - Final No growth in 5 days. 02/03/25 18:00 Wound - Left Foot Gram Stain - Final 02/03/25 18:00 Wound - Left Foot Wound Culture - Final Meth. resistant Staph. aureus Enterobacter cloacae complex Corynebacterium striatum 02/03/25 18:00 Wound - Left Foot Anaerobic Culture - Final No anaerobic bacteria isolated. 02/05/25 00:05 Nasal Secretion MRSA (PCR) - Final 02/02/25 21:25 Urine, Catheterized Urine Culture - Final Culture exhibits no growth. 02/03/25 01:36 Mucosa - Nasopharyngeal Respiratory Panel (PCR) - Final 02/02/25 21:25 Urine, Clean Catch Legionella Antigen - Final 02/02/25 21:25 Urine, Clean Catch Streptococcus pneumoniae Antigen (M - Final Physical Exam Narrative General: Alert, Oriented x1-2, Cooperative, No apparent distress HEENT: Atraumatic, PERRLA, EOMI, Normocephalic Oral: Moist Mucosa Neck: Supple, No JVD Lungs: Diminished, Normal air movement, No rhonchi, No wheeze, No rales Cardiovascular: Regular rate, Regular Rhythm, Normal S1, Normal S2, No murmurs Abdomen: Soft, Non Tender, Non-Distended, No Hepato-splenomegaly Extremities: Edema, Capillary Refill Less than 3 Seconds Skin: Left lower extremity wound dressing intact Musculoskeletal: No Tenderness to Palpation of Joints or Extremities Neurological: No focal neurological deficits, moves all extremities Psych/Mental Status: Normal affect Assessment & Plan Assessment/Plan (1) Pneumonia: PLAN: Plan 1. Sepsis secondary to left sided pneumonia as well as diabetic foot ulcer on the left status post left fifth ray resection 02/05/2025/ANTHONY ? Continue with broad-spectrum antibiotics ? Appreciate podiatry's assistance ? Will wean oxygen as able ? Wound cultures from the are showing Enterobacter, corynebacterium, and MRSA ? Surgical cultures with MRSA, and other staph species, appreciate infectious disease assistance ? MRI was read as negative for osteomyelitis ? JOSTIN on the right is 0.88 with a left JOSTIN of 1.05, podiatry is consulted vascular surgery, plan for angiogram today ? Creatinine has been at 1.83, will start him on IV fluids as it does not appear that he is obtaining significant p.o. intake. Appreciate speech therapy. Baseline creatinine is 1.1, he is edematous so we will decrease him to 50 cc/h 2. Paroxysmal A-fib/history of AAA status post repair 2006/essential HTN/HLD/history of sick sinus syndrome status post pacemaker placement ? Continue with his home blood pressure medications ? Blood pressures appear stable ? Continue with cholesterol medications ? Can resume his home Eliquis ? Echo on 02/12/2023 with an EF of 55 to 60% with mild MV insufficiency, he does have a history of aortic valve replacement 3. DM2 ? Hold his home oral medications ? Continue with insulin ? Accu-Cheks ACHS ? Continue with sliding scale insulin ? Will monitor and make adjustments as necessary 4. GERD with a history of GI bleed ? He had been transitioned from Coumadin to Eliquis ? Continue with PPI and Carafate 5. Dementia/anxiety/depression ? Stable, his dementia may be a little bit worse secondary to the infection ? Continue with his home medications 6. BPH with obstruction ? Continue with his Flomax ? Stable 7. Iron deficiency anemia ? Stable ? Continue to monitor ? Continue with iron supplementation DVT: Eliquis Charges/Coding Visit Charges Inpatient E&M: 08924 Subs Hosp L2
[2025-02-10 11:32] LABS: Vancomycin, Trough Level 16.6 ug/mL (5.0-15.0)
--- NOTE | 2025-02-10 12:03 | PCM.RX.CS ---
Consult Antibiotic Management Pharmacy has been consulted to manage selected antibiotic: Vancomycin Type of Intervention Type of Consult: Follow-up Labs Labs: Sodium 142 mmol/L (133-145) 02/10/25 05:47 Potassium 3.7 mmol/L (3.3-5.1) 02/10/25 05:47 Chloride 108 mmol/L (98-108) 02/10/25 05:47 Carbon Dioxide 23.0 mmol/L (21.0-32.0) 02/10/25 05:47 Anion Gap 12 (5-15) 02/10/25 05:47 BUN 28 mg/dL (4-19) H 02/10/25 05:47 Creatinine 1.72 mg/dL (0.70-1.20) H 02/10/25 05:47 Est GFR (MDRD) Non-Af 40 (>60) L 02/10/25 05:47 BUN/Creatinine Ratio 16.2 RATIO (10-20) 02/10/25 05:47 Glucose 161 mg/dL (70-99) H 02/10/25 05:47 Vancomycin Trough 16.6 ug/mL (5.0-15.0) H 02/10/25 10:14 Random Vancomycin 17.6 ug/mL (0.0-15.0) H 02/07/25 05:46 Microbiology Microbiology: Microbiology 02/05/25 Unknown Tissue - Toe Gram Stain - Final 02/05/25 Unknown Tissue - Toe Wound Culture - Final Staphylococcus simulans Staphylococcus caprae Meth. resistant Staph. aureus 02/05/25 Unknown Tissue - Toe Anaerobic Culture - Final No anaerobic bacteria isolated. 02/05/25 Unknown Tissue - Toe Gram Stain - Final 02/05/25 Unknown Tissue - Toe Wound Culture - Final No growth aerobically. 02/05/25 Unknown Tissue - Toe Anaerobic Culture - Final No growth in 5 days. 02/02/25 20:42 Blood Culture (Wb) - Right Wrist Blood Culture - Final No growth in 5 days. 02/02/25 19:56 Blood Culture (Wb) - Left Hand Blood Culture - Final No growth in 5 days. 02/03/25 18:00 Wound - Left Foot Gram Stain - Final 02/03/25 18:00 Wound - Left Foot Wound Culture - Final Meth. resistant Staph. aureus Enterobacter cloacae complex Corynebacterium striatum 02/03/25 18:00 Wound - Left Foot Anaerobic Culture - Final No anaerobic bacteria isolated. 02/05/25 00:05 Nasal Secretion MRSA (PCR) - Final 02/02/25 21:25 Urine, Catheterized Urine Culture - Final Culture exhibits no growth. 02/03/25 01:36 Mucosa - Nasopharyngeal Respiratory Panel (PCR) - Final 02/02/25 21:25 Urine, Clean Catch Legionella Antigen - Final 02/02/25 21:25 Urine, Clean Catch Streptococcus pneumoniae Antigen (M - Final Goal Trough Goal Trough: 15-20 mcg/mL Pharmacy Plan for Drug Dosing Pharmacy Plan for Drug Dosing: VANCOMYCIN LEVEL RECEIVED Current Vancomycin Dose: 500mg IV Q12hr Number of Doses Received: 3 (of current regimen) Vancomycin Level: 16.6 Hours Since Last Dose: ~13hr Renal Function: 1.72 Renal Function Trend: stable Lab/Micro: Cultures (+) MRSA Vancomycin Plan/Comments: Patient had a trough drawn which resulted in a value of 16.6 (goal 15-20). Patient is within therapeutic range, continue current dose of vancomycin 500mg IV Q12hr and recheck a trough in 2 days per protocol. Pending Level: 02/12/25 @1030 Pharmacy Service will continue to monitor and adjust dosing as required.
[2025-02-10 15:22] LABS: ACT Activated Clotting Time 205 sec (74-137)
[2025-02-10 15:22] LABS: ACT Activated Clotting Time 222 sec (74-137)
[2025-02-10] MEDS: Vancomycin HCl 500 MG in 0.9% Normal Saline (100mL Bag) 100 ML 100 MG IV ×2 (15:35→22:26)
--- NOTE | 2025-02-10 18:20 | OP.PCM_ITS ---
Operative Report (Standard) Operative Information Date of Procedure: 02/10/25 Pre-Operative Diagnosis: Atherosclerosis with ulceration of the left lateral forefoot Post-Operative Diagnosis: Same Surgery/Procedure Performed: Aortogram, left lower extremity angiogram Intravascular ultrasound left anterior tibial artery, left posterior tibial artery, left popliteal artery Angioplasty left posterior tibial artery, angioplasty left anterior tibial arter y intensive care unit registered nurse: No Type of Anesthesia: Local and Sedation,Conscious RN Documented Start/Stop Times: Operation Date: 02/05/25 13:30 Case Time Into Pre-Op 02/05/25 12:23 Out of Pre-Op 02/05/25 13:22 Anesthesia Start 02/05/25 13:33 Into Room 02/05/25 13:33 Procedure Start 02/05/25 13:51 Procedure End 02/05/25 14:12 Anesthesia End 02/05/25 14:16 Out of Room 02/05/25 14:16 Into Recovery 02/05/25 14:17 Out of Recovery 02/05/25 15:41 Procedure Start Time: 13:10 Procedure Stop Time: 15:00 Select all DRAINS/GRAFTS/IMPLANTS that apply: None Estimated Blood Loss: 9 Specimen collected: No Description of surgery: HPI: Patient is a 79-year-old male who presented with an infected left forefoot ulceration which had been debrided by podiatry. He had noninvasive vascular studies which revealed arterial insufficiency and given his diabetic status it is felt that optimize perfusion will be necessary for wound healing and infection treatment. He is taken now for angiogram with possible intervention: He has a history of chronic kidney disease so CO2 will be utilized to minimize contrast burden. Description of procedure: Upon obtaining form consent and verification correct patient procedure and site the patient was taken to the [facility] [employer] [facility] he was positioned prepped and draped in usual sterile fashion. Timeouts performed consultation administered with fentanyl. Skin overlying the right common femoral artery was anesthetized 1% lidocaine the vessel accessed under ultra sound guidance with a micropuncture needle wire. This was exchanged for micropuncture sheath through which injection iliofemoral angiogram was performed revealing satisfactory positioning and no extravasation or dissection. Through the micropuncture sheath [place] wire was advanced into the abdominal aorta the micropuncture sheath exchanged for a short 5 Bahamian sheath. Through the 5 Bahamian sheath an Omni Flush catheter was advanced into the abdominal aorta and a digital subtraction aortogram pelvic angiogram with CO2 was performed. This was somewhat limited due to CO2 transit in tortuous vessels however this revealed normal caliber abdominal aorta and bilateral common and external neck arteries with no significant atherosclerosis or stenosis though there was moderate diffuse calcification. Utilizing the Omni Flush catheter and a glide advantage wire we navigate into the contralateral leg system advancing her catheter into the distal external neck artery. From this position subtraction left lower extremity angiogram with CO2 was performed which revealed widely patent normal caliber common femoral, profundofemoral, SFA vessels with diffuse calcification but no significant atherosclerosis or stenosis. The wire was then readvanced and navigated into the superficial femoral artery and the catheter advanced into the mid superficial femoral artery. From this position further imaging of the left lower extremity was performed with combination of CO2 and diluted contrast medium. This revealed patent popliteal artery with no significant atherosclerosis or stenosis, patent tibioperoneal trunk with no atherosclerosis or stenosis, patent peroneal artery to the ankle with no significant atherosclerosis or stenosis. The posterior tibial artery was patent large caliber proximally with focal areas of stenosis in the distal third of the lower leg including at the malleolus. There was poor filling of the pedal arch and digital vessels and it was unclear if this was due to contrast transit or to disease at this location. The anterior tibial artery had several focal areas of stenosis in the proximal third of the lower leg and otherwise patent vessel to the ankle where again there was poor visualization of the pedal arch and digital vessels. It was felt that in order to optimize perfusion into the foot that the tibial vessels would benefit from percutaneous intervention. Both the posterior tibial and anterior tibial stenoses were greater than 75% in each of the lesions with multiple in each vessel. The patient was then heparinized allowed to circulate for 3 minutes. A glide advantage wire was then advanced and positioned in the popliteal artery. The catheter and short 5 Bahamian sheath then exchanged for a 5 Bahamian Rabie sheath advanced in the position of the proximal popliteal artery. From this position utilizing the glide advantage wire and a CXI catheter we were able to selectively cannulate the posterior tibial artery and advanced the catheter into the proximal vessel. From this position the glide advantage was exchanged for a command wire which was utilized to navigate the areas of stenosis into the posterior tibial artery as it entered into the foot. Intravascular ultrasound probe was then advanced recorded pullback performed of the posterior tibial artery, tibioperoneal trunk, popliteal artery this confirmed present within the true lumen and revealed reference vessel sizes adjacent to the areas of stenosis. A 2.5 mm x 20 ramírez angioplasty balloon was then advanced over the wire and positioned at the distalmost lesion. This was then inflated to nominal for 3 minutes then deflated and were withdrawn back to the more proximal lesion which required multiple inflations to cover its length. Each of these inflations were to nominal for 3 minutes prior to deflation and repositioning. The balloon was then withdrawn after completion of this vessel treatment and completion angiography revealed satisfactory lesion response with no residual stenosis no extravasation or dissection. There is brisk contrast transit however there is still poor visualization of the pedal arch and digital vessels. Next the wire was withdrawn back into the popliteal artery and utilizing multiple various catheter and wire selections we were able to ultimately cannulate the anterior tibial artery advancing the wire and catheter in the proximal vessel. The glide advantage wire was exchanged for the command 18 wire which was advanced traversing the areas of stenosis into the distal lower leg. The catheter was then withdrawn and intravascular sound probe was advanced and recorded pullback performed of the anterior tibial artery to its junction with the popliteal artery. This revealed presence within true lumen and reference vessel sizes adjacent to the areas of stenosis. A 2-1/2 mm x 150 Ramírez angioplasty balloon was then advanced in the position inflated to nominal for 3 minutes then deflated withdrawn. Completion angiography confirmed satisfactory lesion resolution no extravasation or dissection and brisk contrast transit into the foot. Again there is poor visualization of the pedal arch and digital vessels. Seen no further lesions appropriate for treatment the long 5 Bahamian sheath was exchanged for a short 5 Bahamian sheath and a minx closure device deployed followed by 5 minutes of manual pressure. The patient was then taken to the PCU for bedrest and ongoing medical care. Surgical Findings: See above Complications Complications: No
[2025-02-10] MEDS: MELATONIN 3 MG TABLET PO (22:26)
[2025-02-10] MEDS: Memantine Hydrochloride 10 MG Tablet PO (22:26)
[2025-02-10] MEDS: 0.9% Saline Lock 10 ML Syringe IV (23:58)
[2025-02-11] VITALS (12 sets, daily range): BP systolic 132–171; BP diastolic 57–71; PULSE 60–62; RESP 16–18; TEMP 36.4–37.1; O2SAT 88–98; BMI 34.8
[2025-02-11] MEDS: 0.9% Saline Lock 10 ML Syringe IV (04:29)
[2025-02-11] MEDS: Piperacil/Tazobactam 3.375 GM in 0.9% Normal Saline (50mL MB+) 50 ML IV (05:34)
[2025-02-11] MEDS: 0.9% Normal Saline (1000mL) 1,000 ML 50 ML IV (06:21)
--- NOTE | 2025-02-11 08:39 | PN.SURG_ITS ---
Subjective Subjective He is drowsy. He reports no R groin pain, no new lower extremity pain. Objective Data Objective Data Vital Signs: Vital Signs Temp Pulse Resp BP Pulse Ox O2 Del Method O2 Flow Rate 97.5 F L 60 18 160/57 H 97 Nasal Cannula 1 02/11/25 04:17 02/11/25 06:25 02/11/25 04:17 02/11/25 06:25 02/11/25 04:30 02/11/25 08:13 02/11/25 04:30 Oxygen Flow Rate (L/min) 1 Oxygen Delivery Method Nasal Cannula Weight: 256 lb 9.889 oz Body Mass Index (BMI) 34.8 Intake & Output: Intake and Output for Last 24 Hours 02/09/25 02/10/25 02/11/25 23:59 23:59 23:59 Intake Total 1820 / 1820 1755 / 1755 785 / 785 Output Total 1500 / 2500 3650 / 3650 300 / 300 Balance 320 / -680 -1895 / -1895 485 / 485 Lab / Micro Data 02/10/25 05:47 02/10/25 05:47 Labs: Laboratory Results - last 24 hr 02/10/25 10:14: Vancomycin Trough 16.6 H 02/10/25 11:17: POC Glucose 156 H 02/10/25 13:04: Activated Clotting Time 205 H 02/10/25 13:44: Activated Clotting Time 222 H 02/10/25 17:20: POC Glucose 132 H 02/10/25 22:11: POC Glucose 135 H 02/11/25 06:13: POC Glucose 137 H 02/11/25 06:54: Estim Creat Clear Calc STUDENT ASSISTANCE COUNSELOR Micro: Microbiology 02/05/25 Unknown Tissue - Toe Gram Stain - Final 02/05/25 Unknown Tissue - Toe Wound Culture - Final Staphylococcus simulans Staphylococcus caprae Meth. resistant Staph. aureus 02/05/25 Unknown Tissue - Toe Anaerobic Culture - Final No anaerobic bacteria isolated. 02/05/25 Unknown Tissue - Toe Gram Stain - Final 02/05/25 Unknown Tissue - Toe Wound Culture - Final No growth aerobically. 02/05/25 Unknown Tissue - Toe Anaerobic Culture - Final No growth in 5 days. 02/02/25 20:42 Blood Culture (Wb) - Right Wrist Blood Culture - Final No growth in 5 days. 02/02/25 19:56 Blood Culture (Wb) - Left Hand Blood Culture - Final No growth in 5 days. 02/03/25 18:00 Wound - Left Foot Gram Stain - Final 02/03/25 18:00 Wound - Left Foot Wound Culture - Final Meth. resistant Staph. aureus Enterobacter cloacae complex Corynebacterium striatum 02/03/25 18:00 Wound - Left Foot Anaerobic Culture - Final No anaerobic bacteria isolated. 02/05/25 00:05 Nasal Secretion MRSA (PCR) - Final 02/02/25 21:25 Urine, Catheterized Urine Culture - Final Culture exhibits no growth. 02/03/25 01:36 Mucosa - Nasopharyngeal Respiratory Panel (PCR) - Final 02/02/25 21:25 Urine, Clean Catch Legionella Antigen - Final 02/02/25 21:25 Urine, Clean Catch Streptococcus pneumoniae Antigen (M - Final Physical Exam Const alert, oriented x3 and no apparent distress General Appearance: cooperative and comfortable HEENT normocephalic, head/scalp atraumatic, hearing grossly normal bilaterally, external ears normal and external nose normal Eyes General Eye: normal appearance of both eyes Neck General: normal visual inspection Resp normal respiratory effort, no retractions and no use of accessory muscles Effort and Inspection: able to speak in complete sentences; Negative for labored, grunting, stridor or audible wheezes Extremity Extremity Narrative: L DP signal biphasic, L PT biphasic; L foot with wound dressings in place, minimally disturbed for pulse exam, wound not examined. R groin puncture site with dressing C/D/I, no ecchymosis/hematoma, soft to palpation Skin Trauma: no lacerations or abrasions Wounds: wounds noted Wound Narrative: L foot wound not examined, pictures in chart reviewed Neuro moves all extremities Speech: speech normal Psych mental status grossly normal Attitude: calm Speech: normal speech Assessment & Plan Assessment/Plan (1) Type 2 diabetes mellitus with foot ulcer: (2) PAD (peripheral artery disease): PLAN: Plan He is s/p angiogram with L PT and AT angioplasty 02/10/25. He tolerated the procedure well. R groin puncture site without hematoma or bleeding. Vascular exam stable. Plan to continue Plavix 75mg daily at discharge. OK for discharge from vascular perspective whenever otherwise medically ready, planning per primary team. Plan for outpatient follow-up in the office in 2-4 weeks from discharge. Charges/Coding Visit Charges Inpatient E&M: 16738 Subs Hosp L1
[2025-02-11] MEDS: Memantine Hydrochloride 10 MG Tablet PO (08:49)
[2025-02-11] MEDS: Metoprolol(XL)Succ 25 MG Tablet PO (08:50)
[2025-02-11 09:09] LABS: Anion Gap 14 (5-15); BUN 24 mg/dL (4-19); BUN/Creat Ratio 15.3 RATIO (10-20); Calcium,Total 9.0 mg/dL (7.6-11.0); Carbon Dioxide 22.1 mmol/L (21.0-32.0); Chloride 109 mmol/L (98-108); Estimated Creatinine Clearance 52.57 ml/min (50-250); Glucose 155 mg/dL (70-99); Potassium 3.7 mmol/L (3.3-5.1)
[2025-02-11 09:19] LABS: Hematocrit 31.3 % (40-54); Hemoglobin 9.9 g/dL (13.0-16.5); Immature Granulocytes Count 0.240 X10^3/uL (0.0-0.0); Mean Corp Hgb Conc 31.6 g/dL (32-36); Mean Corpuscular Volume 87.2 fL (80-94); Mean Platelet Vol. 9.1 fl (6.2-12.0); NRBC Flagged by Analyzer 0 % (0-5); Platelet Count 308 K/mm3 (150-450); RBC Distribution Width CV 13.7 % (11.6-14.6); RBC Distribution Width SD 44.1 fl (35.1-43.9); Red Blood Count 3.59 M/mm3 (4.6-6.2); White Blood Count 11.3 K/mm3 (4.4-11.0)
--- NOTE | 2025-02-11 09:22 | PCM.PN.HOSP ---
Subjective Subjective No issues overnight, had his angiogram with multiple ballooning's yesterday by vascular surgery Objective Data Objective Data Vital Signs: Vital Signs Temp Pulse Resp BP Pulse Ox O2 Del Method O2 Flow Rate 98.7 F 60 16 153/65 H 95 Nasal Cannula 1 02/11/25 08:44 02/11/25 08:50 02/11/25 08:44 02/11/25 08:44 02/11/25 08:44 02/11/25 08:44 02/11/25 08:44 Oxygen Flow Rate (L/min) 1 Oxygen Delivery Method Nasal Cannula Weight: 256 lb 9.889 oz Body Mass Index (BMI) 34.8 Intake & Output: Intake and Output for Last 24 Hours 02/10/25 02/11/25 02/12/25 03:59 03:59 03:59 Intake Total 1820 / 1820 1705 / 1705 785 / 785 Output Total 2500 / 2500 2650 / 2650 300 / 300 Balance -680 / -680 -945 / -945 485 / 485 Lab / Micro Data 02/11/25 09:02 02/11/25 06:54 Labs: Laboratory Results - last 24 hr 02/10/25 10:14: Vancomycin Trough 16.6 H 02/10/25 11:17: POC Glucose 156 H 02/10/25 13:04: Activated Clotting Time 205 H 02/10/25 13:44: Activated Clotting Time 222 H 02/10/25 17:20: POC Glucose 132 H 02/10/25 22:11: POC Glucose 135 H 02/11/25 06:13: POC Glucose 137 H 02/11/25 06:54: Sodium 145, Potassium 3.7, Chloride 109 H, Carbon Dioxide 22.1, Anion Gap 14, BUN 24 H, Creatinine 1.55 H, Estim Creat Clear Calc 52.57, Est GFR (MDRD) Non-Af 46 L, BUN/Creatinine Ratio 15.3, Glucose 155 H, Calcium 9.0 02/11/25 09:02: WBC 11.3 H, RBC 3.59 L, Hgb 9.9 L, Hct 31.3 L, MCV 87.2, MCH 27.6, MCHC 31.6 L, RDW Std Deviation 44.1 H, RDW Coeff of Nathaniel 13.7, Plt Count 308, MPV 9.1, Immature Gran % (Auto) 2.100 H, Neut % (Auto) 76.3 H, Lymph % (Auto) 9.9 L, [place] % (Auto) 7.1, Eos % (Auto) 4.1, Baso % (Auto) 0.5, Absolute Neuts (auto) 8.7 H, Absolute Lymphs (auto) 1.12, Nucleated RBC % 0 Micro: Microbiology 02/05/25 Unknown Tissue - Toe Gram Stain - Final 02/05/25 Unknown Tissue - Toe Wound Culture - Final Staphylococcus simulans Staphylococcus caprae Meth. resistant Staph. aureus 02/05/25 Unknown Tissue - Toe Anaerobic Culture - Final No anaerobic bacteria isolated. 02/05/25 Unknown Tissue - Toe Gram Stain - Final 02/05/25 Unknown Tissue - Toe Wound Culture - Final No growth aerobically. 02/05/25 Unknown Tissue - Toe Anaerobic Culture - Final No growth in 5 days. 02/02/25 20:42 Blood Culture (Wb) - Right Wrist Blood Culture - Final No growth in 5 days. 02/02/25 19:56 Blood Culture (Wb) - Left Hand Blood Culture - Final No growth in 5 days. 02/03/25 18:00 Wound - Left Foot Gram Stain - Final 02/03/25 18:00 Wound - Left Foot Wound Culture - Final Meth. resistant Staph. aureus Enterobacter cloacae complex Corynebacterium striatum 02/03/25 18:00 Wound - Left Foot Anaerobic Culture - Final No anaerobic bacteria isolated. 02/05/25 00:05 Nasal Secretion MRSA (PCR) - Final 02/02/25 21:25 Urine, Catheterized Urine Culture - Final Culture exhibits no growth. 02/03/25 01:36 Mucosa - Nasopharyngeal Respiratory Panel (PCR) - Final 02/02/25 21:25 Urine, Clean Catch Legionella Antigen - Final 02/02/25 21:25 Urine, Clean Catch Streptococcus pneumoniae Antigen (M - Final Physical Exam Narrative General: Alert, Oriented x1-2, Cooperative, No apparent distress HEENT: Atraumatic, PERRLA, EOMI, Normocephalic Oral: Moist Mucosa Neck: Supple, No JVD Lungs: Diminished, Normal air movement, No rhonchi, No wheeze, No rales Cardiovascular: Regular rate, Regular Rhythm, Normal S1, Normal S2, No murmurs Abdomen: Soft, Non Tender, Non-Distended, No Hepato-splenomegaly Extremities: Edema, Capillary Refill Less than 3 Seconds Skin: Left lower extremity wound dressing intact Musculoskeletal: No Tenderness to Palpation of Joints or Extremities Neurological: No focal neurological deficits, moves all extremities Psych/Mental Status: Normal affect Assessment & Plan Assessment/Plan (1) Pneumonia: PLAN: Plan 1. Sepsis secondary to left sided pneumonia as well as diabetic foot ulcer on the left status post left fifth ray resection 02/05/2025/ANTHONY ? Continue with broad-spectrum antibiotics ? Appreciate podiatry's assistance ? Will wean oxygen as able ? Wound cultures from the are showing Enterobacter, corynebacterium, and MRSA ? Surgical cultures with MRSA, and other staph species, appreciate infectious disease assistance ? MRI was read as negative for osteomyelitis ? JOSTIN on the right is 0.88 with a left JOSTIN of 1.05, podiatry is consulted vascular surgery, plan for angiogram today ? Creatinine has been at 1.83, will start him on IV fluids as it does not appear that he is obtaining significant p.o. intake. Appreciate speech therapy. Baseline creatinine is 1.1, he is edematous so we will decrease him to 50 cc/h ? Plan to discharge to SNF potentially on oral antibiotics pending ID's evaluation today 2. Paroxysmal A-fib/history of AAA status post repair 2006/essential HTN/HLD/history of sick sinus syndrome status post pacemaker placement ? Continue with his home blood pressure medications ? Blood pressures appear stable ? Continue with cholesterol medications ? Can resume his home Eliquis ? Echo on 02/12/2023 with an EF of 55 to 60% with mild MV insufficiency, he does have a history of aortic valve replacement 3. DM2 ? Hold his home oral medications ? Continue with insulin ? Accu-Cheks ACHS ? Continue with sliding scale insulin ? Will monitor and make adjustments as necessary 4. GERD with a history of GI bleed ? He had been transitioned from Coumadin to Eliquis ? Continue with PPI and Carafate 5. Dementia/anxiety/depression ? Stable, his dementia may be a little bit worse secondary to the infection ? Continue with his home medications 6. BPH with obstruction ? Continue with his Flomax ? Stable 7. Iron deficiency anemia ? Stable ? Continue to monitor ? Continue with iron supplementation DVT: Eliquis Charges/Coding Visit Charges Inpatient E&M: 95904 Subs Hosp L2
--- NOTE | 2025-02-11 10:27 | PCM.PN.ID ---
Physical Exam Narrative Angioplasty yesterday, feeling ok, no fever Const alert and no apparent distress General Appearance: cooperative Resp normal air movement and clear to auscultation bilaterally Cardio regular rate and regular rhythm GI soft to palpation, non-tender and non-distended Skin no rashes or lesions noted ID ID: Route of nutrition/ use of supplements: [] Nutritional Intake: [] IV Site: [] Rodrigues Catheter: [] Assessment & Plan Assessment/Plan (1) Acute osteomyelitis of metatarsal bone of left foot: PLAN: Taken to OR 02/05/[address] Mejia for L 5th toe amp and debridement L 5th metatarsal. Clearance cx neg so far. Surg cx with CoNS x2, MRSA. 02/03/25 wound cx with MRSA, enterobacter, and corynebacter. Will change to po doxy, recommend 5 more days abx Will follow as needed, d/w Dr. Cervantes (2) Diabetes mellitus with diabetic polyneuropathy: (3) PAD (peripheral artery disease):
[2025-02-11] MEDS: Insulin Glargine-YFGN 100 UNIT/ML Pen 15 UNIT SC (11:55)
--- NOTE | 2025-02-11 13:39 | PN_ITS ---
Subjective Subjective Patient was seen today for follow up. He is sleeping sitting up in bed. Patient likely going to go back to nursing facility today. Objective Data Objective Data Vital Signs: Vital Signs Temp Pulse Resp BP Pulse Ox O2 Del Method O2 Flow Rate 98.7 F 60 16 153/65 H 95 Nasal Cannula 1 02/11/25 08:44 02/11/25 08:50 02/11/25 08:44 02/11/25 08:44 02/11/25 08:44 02/11/25 09:00 02/11/25 09:00 Oxygen Flow Rate (L/min) 1 Oxygen Delivery Method Nasal Cannula Weight: 116.4 kg Body Mass Index (BMI) 34.8 Intake & Output: Intake and Output for Last 24 Hours 02/09/25 02/10/25 02/11/25 23:59 23:59 23:59 Intake Total 1820 / 1820 1755 / 1755 835 / 835 Output Total 1500 / 2500 3650 / 3650 1150 / 1150 Balance 320 / -680 -1895 / -1895 -315 / -315 Lab / Micro Data 02/11/25 09:02 02/11/25 06:54 Labs: Laboratory Results - last 24 hr 02/10/25 13:04: Activated Clotting Time 205 H 02/10/25 13:44: Activated Clotting Time 222 H 02/10/25 17:20: POC Glucose 132 H 02/10/25 22:11: POC Glucose 135 H 02/11/25 06:13: POC Glucose 137 H 02/11/25 06:54: Sodium 145, Potassium 3.7, Chloride 109 H, Carbon Dioxide 22.1, Anion Gap 14, BUN 24 H, Creatinine 1.55 H, Estim Creat Clear Calc 52.57, Est GFR (MDRD) Non-Af 46 L, BUN/Creatinine Ratio 15.3, Glucose 155 H, Calcium 9.0 02/11/25 09:02: WBC 11.3 H, RBC 3.59 L, Hgb 9.9 L, Hct 31.3 L, MCV 87.2, MCH 27.6, MCHC 31.6 L, RDW Std Deviation 44.1 H, RDW Coeff of Nathaniel 13.7, Plt Count 308, MPV 9.1, Immature Gran % (Auto) 2.100 H, Neut % (Auto) 76.3 H, Lymph % (Auto) 9.9 L, [place] % (Auto) 7.1, Eos % (Auto) 4.1, Baso % (Auto) 0.5, Absolute Neuts (auto) 8.7 H, Absolute Lymphs (auto) 1.12, Nucleated RBC % 0 02/11/25 12:52: POC Glucose 220 H Micro: Microbiology 02/05/25 Unknown Tissue - Toe Gram Stain - Final 02/05/25 Unknown Tissue - Toe Wound Culture - Final Staphylococcus simulans Staphylococcus caprae Meth. resistant Staph. aureus 02/05/25 Unknown Tissue - Toe Anaerobic Culture - Final No anaerobic bacteria isolated. 02/05/25 Unknown Tissue - Toe Gram Stain - Final 02/05/25 Unknown Tissue - Toe Wound Culture - Final No growth aerobically. 02/05/25 Unknown Tissue - Toe Anaerobic Culture - Final No growth in 5 days. 02/02/25 20:42 Blood Culture (Wb) - Right Wrist Blood Culture - Final No growth in 5 days. 02/02/25 19:56 Blood Culture (Wb) - Left Hand Blood Culture - Final No growth in 5 days. 02/03/25 18:00 Wound - Left Foot Gram Stain - Final 02/03/25 18:00 Wound - Left Foot Wound Culture - Final Meth. resistant Staph. aureus Enterobacter cloacae complex Corynebacterium striatum 02/03/25 18:00 Wound - Left Foot Anaerobic Culture - Final No anaerobic bacteria isolated. 02/05/25 00:05 Nasal Secretion MRSA (PCR) - Final 02/02/25 21:25 Urine, Catheterized Urine Culture - Final Culture exhibits no growth. 02/03/25 01:36 Mucosa - Nasopharyngeal Respiratory Panel (PCR) - Final 02/02/25 21:25 Urine, Clean Catch Legionella Antigen - Final 02/02/25 21:25 Urine, Clean Catch Streptococcus pneumoniae Antigen (M - Final Physical Exam Const alert and no apparent distress Constitutional Narrative: s/p debridement 5th MTPJ, there is granular tissue as well as fibrotic tissue and coagulated blood, margins viable, it is down to and including bone, no evidence of acute ischemia, cellulitis improved, no maloder, no fluctunce, no crepitus, no further break down, CFT < 3 seconds to all toes. Assessment & Plan Assessment/Plan (1) Cellulitis of left lower limb: (2) Acute osteomyelitis of metatarsal bone of left foot: (3) Diabetes mellitus with diabetic polyneuropathy: (4) Type 2 diabetes mellitus with foot ulcer: PLAN: Plan Reviewed diagnostic data. s/p left foot 5th ray debridement on 02/05/2025. Patient remains on IV antibiotic therapy. Reviewed culture findings, clearance fragment left 5th metatarsal and toe with no growth. Infectious Disease on consult planning to switch patient to po doxycycline No weightbearing left foot. Keep offloaded at all times. Wound care left lateral foot wound: Ordered wound vac to help promote granulation tissue formation and wound contraction. SettinmmHg continuous. In meantime (until patient has wound vac applied by nursing): betadine gauze, cover with dry dressing, change daily. Plan is for patient to be discharged to nursing facility today - follow up with me in 1 week in office, sooner if needed.
--- NOTE | 2025-02-11 14:00 | TREXTCAR_ITS ---
Diet Diet Order/Speech Therapy: INPATIENT Hospital Diet / Speech Therapy Order(s) 02/10/25 17:06 Carb [Diet: Carbohydrate Controlled] Dietary Modifications:: No Added Salt Type of Dietary Supplement:: Luis Diet Comments: luis with breakfast and dinner Speech Therapy Comments: Direct sup, family ok to supervise, assist feeding as needed Routine Orders/Code Status Routine Lab Work: CBC and BMP Code Status: DNRCC-A DC O2, CPAP, BIPAP needs Home O2 Discharge instructions: No Wound(s) L Foor: Wound Type: Neuropathic/Diabetic Foot Ulcer left lateral foot: Wound Type: Neuropathic/Diabetic Foot Ulcer Dressing Change: betadine gauze Therapies Weight Bearing: Non weight bearing Extremity Affected:: Left Lower Physical Therapy: Eval and Treat Occupational Therapy: Eval and Treat Speech Therapy: Eval and Treat Problem/Diagnosis (1) Cellulitis of left lower limb: Status: Acute Code(s): L03.116 - Cellulitis of left lower limb (2) Acute osteomyelitis of metatarsal bone of left foot: Status: Acute Code(s): M86.172 - Other acute osteomyelitis, left ankle and foot (3) Diabetes mellitus with diabetic polyneuropathy: Status: Acute Code(s): E11.42 - Type 2 diabetes mellitus with diabetic polyneuropathy (4) Type 2 diabetes mellitus with foot ulcer: Status: Acute Code(s): E11.621 - Type 2 diabetes mellitus with foot ulcer; L97.509 - Non-pressure chronic ulcer of other part of unspecified foot with unspecified severity Plan 1. Sepsis secondary to left sided pneumonia as well as diabetic foot ulcer on the left status post left fifth ray resection 02/05/2025 and angiogram with angioplasty of the left posterior and anterior tibial artery on 02/10/2025/ANTHONY ? Continue with broad-spectrum antibiotics ? Appreciate podiatry's assistance ? Will wean oxygen as able ? Wound cultures from the are showing Enterobacter, corynebacterium, and MRSA ? Surgical cultures with MRSA, and other staph species, appreciate infectious disease assistance ? MRI was read as negative for osteomyelitis ? JOSTIN on the right is 0.88 with a left JOSTIN of 1.05, podiatry is consulted vascular surgery, plan for angiogram today ? Creatinine has been at 1.83, will start him on IV fluids as it does not appear that he is obtaining significant p.o. intake. Appreciate speech therapy. Baseline creatinine is 1.1, he is edematous so we will decrease him to 50 cc/h ? Plan to discharge to SNF potentially on oral antibiotics pending ID's evaluation today 2. Paroxysmal A-fib/history of AAA status post repair 2006/essential HTN/HLD/history of sick sinus syndrome status post pacemaker placement ? Continue with his home blood pressure medications ? Blood pressures appear stable ? Continue with cholesterol medications ? Can resume his home Eliquis ? Echo on 02/12/2023 with an EF of 55 to 60% with mild MV insufficiency, he does have a history of aortic valve replacement 3. DM2 ? Hold his home oral medications ? Continue with insulin ? Accu-Cheks ACHS ? Continue with sliding scale insulin ? Will monitor and make adjustments as necessary 4. GERD with a history of GI bleed ? He had been transitioned from Coumadin to Eliquis ? Continue with PPI and Carafate 5. Dementia/anxiety/depression ? Stable, his dementia may be a little bit worse secondary to the infection ? Continue with his home medications 6. BPH with obstruction ? Continue with his Flomax ? Stable 7. Iron deficiency anemia ? Stable ? Continue to monitor ? Continue with iron supplementation DVT: Eliquis Allergies/Procedures Done in Hospital Allergies propofol Adverse Reaction (Verified 02/02/25 19:42) Other GETS AGGRESSIVE Type of Care/Length of Stay Estimated LOS: More Than 30 Days Type of Care Needed: Skilled Rehab Potential: Fair Prognosis: Fair Additional Orders/Day of Discharge Day of Discharge: 02/11/25 Dietary and Speech Recommendations Dietitian Recommendations/Changes: Continue consistent carbohydrate diet with no added salt; consistency/texture adjustments as indicated per [employer]M. Continue Luis with breakfast and dinner to promote wound healing. Discharge Plan Admission Admit Date/Time: 02/02/25 23:12 Attending Provider: Hugo Cervantes Primary Care Provider: Kuldip Cosby Consulting Providers: Kee Mejia; Karen Aly; Aneesh Ac; Smith Leija Discharge Orders/Prescriptions Prescriptions: New clopidogrel 75 mg Tablet 75 mg PO DAILY 90 Days Qty: 0 0RF doxycycline monohydrate 100 mg Capsule 100 mg PO BID 5 Days Qty: 0 0RF Continued ferrous sulfate 325 mg (65 mg iron) tablet 325 mg PO DAILY paroxetine HCl 30 mg tablet 30 mg PO QDAY losartan 50 MG tablet 50 mg PO DAILY atorvastatin 40 MG tablet 40 mg PO QHS tamsulosin 0.4 mg capsule 0.4 mg PO QHS Patient Comments: TAKE 1 CAPSULE BY MOUTH EVERYDAY AT BEDTIME sucralfate 1 gram Tablet 1 g PO 0700,1100,1600 Qty: 90 2RF pantoprazole 40 mg tablet,delayed release (DR/EC) 40 mg PO BID Qty: 60 2RF melatonin 3 mg Tablet 3 mg PO QHS Patient Comments: PRN PER SHELTER MAR. memantine 10 mg Tablet 10 mg PO BID Qty: 0 0RF acetaminophen 325 mg tablet 650 mg PO .q12hrs Patient Comments: PRN PER SHELTER MAR bisacodyl 10 mg suppository 10 mg UT DAILY PRN (Reason: constipation) loperamide [Anti-Diarrheal (loperamide)] 2 mg capsule 2 mg PO Q4H PRN (Reason: loose stool) Rx Instructions: administer after each loose stool until symptoms controlled; do not exceed 8 mg per 24 hrs cholecalciferol (vitamin D3) 1,250 mcg (50,000 unit) tablet 1,250 mcg PO MO metformin 1,000 mg tablet 1,000 mg PO BID insulin glargine [Lantus Solostar U-100 Insulin] 100 UNITS/ML insulin pen 15 unit subcut DAILY Qty: 15 0RF ipratropium-albuterol 0.5 mg-3 mg(2.5 mg base)/3 mL solution for nebulization 3 ml inhalation Q4H PRN (Reason: shortness of breath) Patient Comments: [NO ORIGINAL SIG] Kapspargo Sprinkle 25 mg capsule,jareth,ER 24hr 25 mg PO DAILY Eliquis 5 mg tablet 5 mg PO BID Qty: 60 11RF Referrals / Follow Up: Luis Caldera MD [Non-Staff] - Aneesh Ac MD [Med Staff - Active Staff] - Within 1 Month Kee Mejia DPM [Med Staff - Active Staff] - Within 1 Week Kuldip Cosby NP-C [Primary Care Provider] - Disposition Disposition (needs filled in before D/C Order can be placed): Care Home Facility
--- NOTE | 2025-02-11 14:00 | CASEMGMT ---
JACEY MASON updated by entry level sales consultant that patient will need wound vac at SNF. JACEY MASON updated [facility] and they are able to order wound vac. Orders received and sent to [facility] via [facility]. Patient to discharge to SNF today.
--- NOTE | 2025-02-11 14:44 | PCM.DC.SUM ---
Providers Date of Admission: 02/02/25 Primary Care Physician: AAYUSH Ross Consultations 02/03/25 01:20 Consult: Onc/Wound/child caregiver Routine Comment: Consult: Podiatry Routine Consulting Provider: Kee Mejia Reason for Consult: L diabetic foot wound/ulcer EMERGENT Consult: No Notified: Yes Date Notified: 02/02/25 Time Notified: 23:13 Method of Notification: Text 02/03/25 18:07 Consult: Vascular Surgery Routine Consulting Provider: Aneesh Ac Reason for Consult: PAD with ulcer left foot EMERGENT Consult: No MD Notified: Yes Date Notified: 02/03/25 Time Notified: 18:07 Method of Notification: Text 02/08/25 07:07 Consult: Infectious Disease Routine Consulting Provider: Smith Leija Reason for Consult: s/p 5th ray resection for infection/concern for osteo EMERGENT Consult: No MD Notified: Yes Date Notified: 02/08/25 Time Notified: 07:07 Method of Notification: Text Reason For Visit: PNA, L DIABETIC FOOT WOUND/ULCER Diagnosis Discharge Diagnosis (1) Cellulitis of left lower limb: Status: Acute Code(s): L03.116 - Cellulitis of left lower limb (2) Acute osteomyelitis of metatarsal bone of left foot: Status: Acute Code(s): M86.172 - Other acute osteomyelitis, left ankle and foot (3) Diabetes mellitus with diabetic polyneuropathy: Status: Acute Code(s): E11.42 - Type 2 diabetes mellitus with diabetic polyneuropathy (4) Type 2 diabetes mellitus with foot ulcer: Status: Acute Code(s): E11.621 - Type 2 diabetes mellitus with foot ulcer; L97.509 - Non-pressure chronic ulcer of other part of unspecified foot with unspecified severity Medications at Discharge Home Medications losartan 50 mg tablet 50 mg PO DAILY blood pressure 03/24/18 atorvastatin 40 mg tablet 40 mg PO QHS cholesterol 05/22/18 tamsulosin 0.4 mg capsule 0.4 mg PO QHS PROSTATE 03/02/22 cholecalciferol (vitamin D3) 1,250 mcg (50,000 unit) tablet 1,250 mcg PO MO SUPPLEMENT 01/21/23 metformin 1,000 mg tablet 1,000 mg PO BID DM 01/21/23 insulin glargine 100 unit/mL (3 mL) subcutaneous pen (Lantus Solostar U-100 Insulin) 15 unit (0.15 mL) subcut DAILY diabetes #15 mL 01/26/23 pantoprazole 40 mg tablet,delayed release 40 mg PO BID #60 tabs 02/05/23 sucralfate 1 gram tablet 1 g PO 0700,1100,1600 #90 tabs 02/05/23 melatonin 3 mg tablet 3 mg PO QHS Insomnia 02/10/23 memantine 10 mg tablet 10 mg PO BID #0 tabs 02/13/23 bisacodyl 10 mg rectal suppository 10 mg OR DAILY PRN constipation 05/30/23 loperamide 2 mg capsule (Anti-Diarrheal (loperamide)) 2 mg PO Q4H PRN loose stool 05/30/23 acetaminophen 325 mg tablet 650 mg PO .q12hrs PAIN AND FEVER 10/07/23 ferrous sulfate 325 mg (65 mg iron) tablet 325 mg PO DAILY 10/07/23 apixaban 5 mg tablet (Eliquis) 5 mg PO BID #60 tabs 03/03/24 paroxetine HCl 30 mg tablet 30 mg PO QDAY 04/07/24 ipratropium 0.5 mg-albuterol 3 mg (2.5 mg base)/3 mL nebulization soln 3 ml inhalation Q4H PRN shortness of breath 02/02/25 metoprolol succinate 25 mg capsule sprinkle, ext. release 24 hr (Kapspargo Sprinkle) 25 mg PO DAILY 02/02/25 clopidogrel 75 mg tablet 75 mg PO DAILY 90 days #0 tabs 02/11/25 doxycycline monohydrate 100 mg capsule 100 mg PO BID 5 days #0 caps 02/11/25 Hospital Course Operations - (Left fifth ray resection) Procedures - (CAMILLE AGUDELO, is a 89 F who presents with a fall on the night of the . Patient fell with her back hitting windowpane. On the floor she was unable to get up and was sent to the emergency room. She underwent hip x-rays that showed no fracture. Pelvic CT did show an acute L5 vertebral fracture w) Summary of Care Provided Minutes Spent on Discharge: 33 Hospital Course: Per HPI: The patient is a 79 y/o M w/ PMHx: BPH with obstructive pathology, CKD stage IIIa, AAA s/p repair, Hx COVID-19, Hx GI bleed, Valvular heart disease s/p AVR, HTN, HLD, VTE w/ Hx DVT/PE, Diabetes mellitus type II, Obesity, PAF w/ prior noted mobitz type II s/p pacemaker, Chronic anemia/iron deficiency anemia, Dementia unclear type with unclear behavioral disturbance history who presents to the [facility] ED on 02/02/2025 with history of recent onset of cough, fatigue and malaise as well as fevers with altered mental status brought in by his and son noted that he been behaving his normal baseline the day prior at skilled facility however she was called this evening secondary to his worsening status prompting ED evaluation to be cautious. Patient baseline is typically alert and oriented to person and place. In the ED upon arrival patient was noted to have mild erythema to the left dorsal foot as well in addition to a small chronic lateral foot ulceration/wound which reports has been followed by wound care at the facility. Workup in the ED included T101.4, heart rate 93, BP 133/64, respiratory rate 31, initially 98% on a 15 L nonrebreather with most recent repeat vitals T101.4 axillary, heart rate 85, BP 114/58, respiratory rate 27, 92% on room air, CBC with WC 13.9, hemoglobin 10.9, MCV 85, platelet 203 with left shift and lymphopenia, coags with PT 17.3, INR 1.4, PTT 34, CMP with BUN/creatinine 18/1.04, GFR 74, glucose 195, lactic acid 3.1, hepatic profile not marked appearing, urinalysis with specific gravity 1.015, protein 30, glucose 250, ketone negative, occult blood 25, nitrite negative, leukocyte esterase negative with urine RBCs 5-10, urine WBCs 5-10 with 1+ urine bacteria, chest x-ray with possible left midlung consolidative opacity concerning for pneumonia, CT of the brain with no acute intracranial findings, plain film of the left foot with no acute osseous findings. In the ED patient ministered 1 L normal saline, Tylenol 1000 mg p.o. x 1, Toradol 50 mg IV x 1, IV vancomycin and IV Zosyn in addition to magnesium 4 g IV x 1. Hospital Course: 1. Sepsis secondary left-sided pneumonia as well as diabetic foot ulcer on the left lateral foot status post fifth ray resection on 02/05/2025 with aortogram and angioplasty of the left posterior and anterior tibial artery on 02/10/2025/ANTHONY?79-year-old male with dementia presented to the hospital with sepsis from a left-sided pneumonia and left lower extremity cellulitis with possible osteomyelitis. Surgical cultures demonstrated MRSA and no sputum was obtained though his respiratory status has improved with his broad-spectrum antibiotics. Podiatry was consulted and recommended an MRI as they were concerned for osteomyelitis and they proceeded with left fifth ray resection and the MRI was read as no osteomyelitis. Infectious disease was consulted ultimately recommending 5 more days of p.o. doxycycline 100 mg twice daily after discharge. Given poor circulation despite having an JOSTIN of 0.88 on the right and an JOSTIN of 1.05 on the left, vascular surgery was consulted and performed an angiogram eviscerating and need for angioplasty to the left anterior and posterior tibial artery. Ultimately podiatry would like for him to have a wound VAC placed at the halfway. His hospitalization was complicated by an ANTHONY as his creatinine peaked at 1.83 and he was started on IV fluids, this did lead to some edema so the fluid rate had to be cut down to about 50 cc/h and creatinine today on the day of discharge is 1.55. It been discussed with his about discharge to SNF and she had expressed understanding of the risk benefits of going home to the halfway and would like to go when able. He will need to be on Plavix 75 mg p.o. daily for 3 weeks on top of his home Eliquis for his paroxysmal A-fib. He is to be nonweightbearing on his left lower extremity per podiatry, and he will need to follow-up with podiatry in a week and with vascular surgery within the next 2 to 4 weeks. 2. Paroxysmal A-fib, history of AAA status post repair in 2006, essential hypertension, hyperlipidemia, history of sick sinus syndrome status post pacemaker placement, type 2 diabetes, GERD with a history of GI bleed, dementia, anxiety, depression, BPH with obstruction, iron deficiency anemia are all chronic medical conditions which complicate his care. His home medications were continued where appropriate Weight / BMI Weight Weight: 256 lb 9.889 oz Body Mass Index (BMI) 34.8 ABG / Lab / Microbiology Data 02/11/25 09:02 02/11/25 06:54 Laboratory: Laboratory Results - last 24 hr 02/10/25 13:04: Activated Clotting Time 205 H 02/10/25 13:44: Activated Clotting Time 222 H 02/10/25 17:20: POC Glucose 132 H 02/10/25 22:11: POC Glucose 135 H 02/11/25 06:13: POC Glucose 137 H 02/11/25 06:54: WBC Cancelled, Corrected WBC Cancelled, RBC Cancelled, Hgb Cancelled, Hct Cancelled, MCV Cancelled, MCH Cancelled, MCHC Cancelled, RDW Std Deviation Cancelled, RDW Coeff of Nathaniel Cancelled, Plt Count Cancelled, MPV Cancelled, Immature Gran % (Auto) Cancelled, Neut % (Auto) Cancelled, Lymph % (Auto) Cancelled, [place] % (Auto) Cancelled, Eos % (Auto) Cancelled, Baso % (Auto) Cancelled, Absolute Neuts (auto) Cancelled, Absolute Lymphs (auto) Cancelled, Total Counted Cancelled, Neutrophils % (Manual) Cancelled, Band Neutrophils % Cancelled, Lymphocytes % (Manual) Cancelled, Monocytes % (Manual) Cancelled, Eosinophils % (Manual) Cancelled, Basophils % (Manual) Cancelled, Metamyelocytes % Cancelled, Myelocytes % Cancelled, Promyelocytes % Cancelled, Blast Cells % Cancelled, Plasma Cell % (Manual) Cancelled, Other Cells % Cancelled, Nucleated RBC % Cancelled, Nucleated RBCs/100 WBC Cancelled, Differential Comment Cancelled, Diff Path Review Cancelled, Hypersegmented Neuts Cancelled, Atypical Lymphocytes Cancelled, Reactive Lymphocytes Cancelled, Smudge Cells Cancelled, Toxic Granulation Cancelled, Toxic Vacuolation Cancelled, Dohle Bodies Cancelled, Liseth Rods Cancelled, Platelet Estimate Cancelled, Plt Morphology Comment Cancelled, RBC Morphology Cancelled 02/11/25 06:54: RBC Morphology Cancelled, Polychromasia Cancelled, Hypochromasia Cancelled, Basophilic Stippling Cancelled, Anisocytosis Cancelled, Microcytosis Cancelled, Macrocytosis Cancelled, Spherocytes Cancelled, Sickle Cells Cancelled, Target Cells Cancelled, Tear Drop Cells Cancelled, Ovalocytes Cancelled, Stomatocytes Cancelled, [place] Bodies Cancelled, Harris Cells Cancelled, Bite Cells Cancelled, Crenated Cell Cancelled, Acanthocytes (Spur) Cancelled, Rouleaux Cancelled, Schistocytes Cancelled, Sodium 145, Potassium 3.7, Chloride 109 H, Carbon Dioxide 22.1, Anion Gap 14, BUN 24 H, Creatinine 1.55 H, Estim Creat Clear Calc 52.57, Est GFR (MDRD) Non-Af 46 L, BUN/Creatinine Ratio 15.3, Glucose 155 H, Calcium 9.0 02/11/25 09:02: WBC 11.3 H, RBC 3.59 L, Hgb 9.9 L, Hct 31.3 L, MCV 87.2, MCH 27.6, MCHC 31.6 L, RDW Std Deviation 44.1 H, RDW Coeff of Nathaniel 13.7, Plt Count 308, MPV 9.1, Immature Gran % (Auto) 2.100 H, Neut % (Auto) 76.3 H, Lymph % (Auto) 9.9 L, [place] % (Auto) 7.1, Eos % (Auto) 4.1, Baso % (Auto) 0.5, Absolute Neuts (auto) 8.7 H, Absolute Lymphs (auto) 1.12, Nucleated RBC % 0 02/11/25 12:52: POC Glucose 220 H Microbiology: Microbiology 02/05/25 Unknown Tissue - Toe Gram Stain - Final 02/05/25 Unknown Tissue - Toe Wound Culture - Final Staphylococcus simulans Staphylococcus caprae Meth. resistant Staph. aureus 02/05/25 Unknown Tissue - Toe Anaerobic Culture - Final No anaerobic bacteria isolated. 02/05/25 Unknown Tissue - Toe Gram Stain - Final 02/05/25 Unknown Tissue - Toe Wound Culture - Final No growth aerobically. 02/05/25 Unknown Tissue - Toe Anaerobic Culture - Final No growth in 5 days. 02/02/25 20:42 Blood Culture (Wb) - Right Wrist Blood Culture - Final No growth in 5 days. 02/02/25 19:56 Blood Culture (Wb) - Left Hand Blood Culture - Final No growth in 5 days. 02/03/25 18:00 Wound - Left Foot Gram Stain - Final 02/03/25 18:00 Wound - Left Foot Wound Culture - Final Meth. resistant Staph. aureus Enterobacter cloacae complex Corynebacterium striatum 02/03/25 18:00 Wound - Left Foot Anaerobic Culture - Final No anaerobic bacteria isolated. 02/05/25 00:05 Nasal Secretion MRSA (PCR) - Final 02/02/25 21:25 Urine, Catheterized Urine Culture - Final Culture exhibits no growth. 02/03/25 01:36 Mucosa - Nasopharyngeal Respiratory Panel (PCR) - Final 02/02/25 21:25 Urine, Clean Catch Legionella Antigen - Final 02/02/25 21:25 Urine, Clean Catch Streptococcus pneumoniae Antigen (M - Final D/C Instructions DC O2, CPAP, BIPAP Needs Home O2 Discharge instructions: No Meaningful Use Info Meaningful Use Meaningful Use Diagnoses (Choose all that apply): None applicable Discharge Plan Admission Admit Date/Time: 02/02/25 23:12 Attending Provider: Hugo Cervantes Primary Care Provider: Kuldip Cosby Consulting Providers: Kee Mejia; Karen Aly; Aneesh Ac; Smith Leija Discharge Orders/Prescriptions Prescriptions: New clopidogrel 75 mg Tablet 75 mg PO DAILY 90 Days Qty: 0 0RF doxycycline monohydrate 100 mg Capsule 100 mg PO BID 5 Days Qty: 0 0RF Continued ferrous sulfate 325 mg (65 mg iron) tablet 325 mg PO DAILY paroxetine HCl 30 mg tablet 30 mg PO QDAY losartan 50 MG tablet 50 mg PO DAILY atorvastatin 40 MG tablet 40 mg PO QHS tamsulosin 0.4 mg capsule 0.4 mg PO QHS Patient Comments: TAKE 1 CAPSULE BY MOUTH EVERYDAY AT BEDTIME sucralfate 1 gram Tablet 1 g PO 0700,1100,1600 Qty: 90 2RF pantoprazole 40 mg tablet,delayed release (DR/EC) 40 mg PO BID Qty: 60 2RF melatonin 3 mg Tablet 3 mg PO QHS Patient Comments: PRN PER LONG-TERM MAR. memantine 10 mg Tablet 10 mg PO BID Qty: 0 0RF acetaminophen 325 mg tablet 650 mg PO .q12hrs Patient Comments: PRN PER LONG-TERM MAR bisacodyl 10 mg suppository 10 mg OR DAILY PRN (Reason: constipation) loperamide [Anti-Diarrheal (loperamide)] 2 mg capsule 2 mg PO Q4H PRN (Reason: loose stool) Rx Instructions: administer after each loose stool until symptoms controlled; do not exceed 8 mg per 24 hrs cholecalciferol (vitamin D3) 1,250 mcg (50,000 unit) tablet 1,250 mcg PO MO metformin 1,000 mg tablet 1,000 mg PO BID insulin glargine [Lantus Solostar U-100 Insulin] 100 UNITS/ML insulin pen 15 unit subcut DAILY Qty: 15 0RF ipratropium-albuterol 0.5 mg-3 mg(2.5 mg base)/3 mL solution for nebulization 3 ml inhalation Q4H PRN (Reason: shortness of breath) Patient Comments: [NO ORIGINAL SIG] Kapspargo Sprinkle 25 mg capsule,sprinkle,ER 24hr 25 mg PO DAILY Eliquis 5 mg tablet 5 mg PO BID Qty: 60 11RF Referrals / Follow Up: Luis Caldera MD [Non-Staff] - Aneesh Ac MD [Med Staff - Active Staff] - Within 1 Month Kee Mejia DPM [Med Staff - Active Staff] - Within 1 Week Kuldip Cosby NP-C [Primary Care Provider] - Disposition Disposition (needs filled in before D/C Order can be placed): Nursing Home Facility Charges/Coding Visit Charges Inpatient E&M: 84231 Disch Hosp >30min
--- NOTE | 2025-02-11 15:40 | CASEMGMT ---
Patient has order for discharge. Transfer summary and signed med list received from hospitalist. JACEY MASON called and scheduled transportation via cot with [facility] with pickup time of 1800 to return to [facility]. RN ISABELLA updated nursing. RN ISABELLA called [facility] and updated regarding discharge and planned pickup of 1800. JACEY MASON also called and updated son/CHIO Romero of discharge and pickup time or 1800. Copy of signed med list and transport form filed in chart. JACEY MASON sent discharge papers and updated clinicals to [facility] via [facility] and updated regarding transport time.
== END 2025-02-11 18:50 | disposition skilled nursing facility (03) | DRG 853 ==
LOC: ED 20:21 → MS3 02-03 00:06 → PCU 02-03 00:29
PROVIDERS: Podiatrist; Surgery Trauma Surgery; Admitting Provider Family Medicine; Emergency Provider Emergency Medicine; PCP Nurse Practitioner Adult Health; Visit Provider Family Medicine
PROC: 0Y6N0Z8 Detachment at Left Foot, Complete 5th Ray, Open Approach (ICD-10-PCS; principal; 2025-02-05 13:15)
DX: A41.9 Sepsis, unspecified organism (principal); J18.9 Pneumonia, unspecified organism; F03.918 Unspecified dementia, unspecified severity, with other behavioral disturbance; N17.9 Acute kidney failure, unspecified; M86.172 Other acute osteomyelitis, left ankle and foot; N13.8 Other obstructive and reflux uropathy; L03.116 Cellulitis of left lower limb; D63.1 Anemia in chronic kidney disease; E11.22 Type 2 diabetes mellitus with diabetic chronic kidney disease; D50.9 Iron deficiency anemia, unspecified; Z66 Do not resuscitate; I48.0 Paroxysmal atrial fibrillation; I12.9 Hypertensive chronic kidney disease with stage 1 through stage 4 chronic kidney disease, or unspecified chronic kidney disease; F32.A Depression, unspecified; E66.9 Obesity, unspecified; E11.621 Type 2 diabetes mellitus with foot ulcer; E78.00 Pure hypercholesterolemia, unspecified; Z79.4 Long term (current) use of insulin; K21.9 Gastro-esophageal reflux disease without esophagitis; F03.A0 Unspecified dementia, mild, without behavioral disturbance, psychotic disturbance, mood disturbance, and anxiety; E11.51 Type 2 diabetes mellitus with diabetic peripheral angiopathy without gangrene; E11.69 Type 2 diabetes mellitus with other specified complication; E11.42 Type 2 diabetes mellitus with diabetic polyneuropathy; F41.9 Anxiety disorder, unspecified; L97.509 Non-pressure chronic ulcer of other part of unspecified foot with unspecified severity; Z86.718 Personal history of other venous thrombosis and embolism; Z83.3 Family history of diabetes mellitus; Z95.0 Presence of cardiac pacemaker; Z86.711 Personal history of pulmonary embolism; Z79.84 Long term (current) use of oral hypoglycemic drugs; Z86.16 Personal history of COVID-19; N40.1 Benign prostatic hyperplasia with lower urinary tract symptoms; Z68.35 Body mass index [BMI] 35.0-35.9, adult; A49.02 Methicillin resistant Staphylococcus aureus infection, unspecified site
CPT/HCPCS: 36200; 36245; 36415; 36600; 37228; 37232; 37252; 37253; 51702; 70450; 71045; 73620; 73630; 73718; 75625; 75710; 76937; 80048; 80053; 80202; 81001; 82803; 82962; 83036; 83605; 83735; 84450; 84460; 85025; 85347; 85610; 85652; 85730; 86140; 87015; 87040; 87070; 87075; 87077; 87086; 87102; 87116; 87186; 87205; 87206; 87449; 87633; 87640; 87641; 88305; 88311; 92526; 92610; 93005; 93923; 94668; 97110; 97162; 97166; 97530; 99152; 99153; 99285; C1725; C1753; C1760; C1769; C1887; C1894; Q9967; A4216

== ENCOUNTER → 2025-02-25 05:00 | Outpatient (REF) | payer MEDICARE, OTHER, SELFPAY ==
[2025-02-25 11:09] LABS: Anion Gap 12 (5-15); BUN 40 mg/dL (4-19); BUN/Creat Ratio 30.8 RATIO (10-20); Calcium,Total 10.0 mg/dL (7.6-11.0); Carbon Dioxide 27.9 mmol/L (21.0-32.0); Chloride 100 mmol/L (98-108); Glucose 158 mg/dL (70-99); Potassium 3.8 mmol/L (3.3-5.1)
== END ==
LOC: OLS.ACH 05:00
PROVIDERS: PCP Nurse Practitioner Adult Health; Visit Provider Internal Medicine
DX: E11.621 Type 2 diabetes mellitus with foot ulcer (principal); B95.62 Methicillin resistant Staphylococcus aureus infection as the cause of diseases classified elsewhere
CPT/HCPCS: 36415; 80048

== ENCOUNTER → 2025-02-26 05:00 | Outpatient (REF) | payer MEDICARE, OTHER, SELFPAY ==
[2025-02-26 07:36] LABS: Anion Gap 11 (5-15); BUN 46 mg/dL (4-19); BUN/Creat Ratio 31.6 RATIO (10-20); Calcium,Total 9.8 mg/dL (7.6-11.0); Carbon Dioxide 27.9 mmol/L (21.0-32.0); Chloride 101 mmol/L (98-108); Glucose 141 mg/dL (70-99); Potassium 3.7 mmol/L (3.3-5.1)
== END ==
LOC: OLS.ACH 05:00
PROVIDERS: PCP Nurse Practitioner Adult Health; Visit Provider Internal Medicine
DX: I12.9 Hypertensive chronic kidney disease with stage 1 through stage 4 chronic kidney disease, or unspecified chronic kidney disease (principal); E11.621 Type 2 diabetes mellitus with foot ulcer; I50.9 Heart failure, unspecified
CPT/HCPCS: 36415; 80048

== ENCOUNTER 2025-02-27 18:24 | Emergency (ER) | payer MEDICARE, OTHER, SELFPAY ==
[2025-02-27] VITALS (8 sets, daily range): BP systolic 132–157; BP diastolic 76–90; PULSE 77–82; RESP 11–18; TEMP 36.8–37.2; O2SAT 96–100; BMI 34.1
--- NOTE | 2025-02-27 19:04 | RAD_ITS ---
PROCEDURE: LEFT FOOT MIN 3 VIEWS 02/27/2025 REASON FOR EXAM: HX OF INFECTION TECHNIQUE: LEFT FOOT MIN 3 VIEWS COMPARISON: 02/05/2025 FINDINGS: No acute fracture or dislocation. Postoperative changes from surgical resection of the 5th ray at the metatarsophalangeal joint. Surgical margins appear sharp without erosion or periosteal reaction. Preserved joint spaces. Small plantar calcaneal spur. Mild generalized soft tissue edema about the foot. No subcutaneous emphysema. Atherosclerotic vascular calcifications. 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 No radiographic evidence for o steomyelitis. If there is persistent clinical concern MRI or nuclear bone scan would have superior sensitivity. Reading Location: [id number]
--- OUTSIDE RECORDS SUMMARY | 2025-02-27 19:22 | XMS RPT_ITS | CCD ---
Author Organization [facility] Care Team Providers Care Ergonomic Specialist Name Role Phone Abdulaziz Caldera MD Primary Care Provider PHYSICIAN, NOT RECORDED Primary Care Physician U Dr. Luis Bajwa Primary Care Provider [phone] Dr. Amada Queen Admit Provider Dr. Amada [...] Dr. Luis Caldera Primary Care Provider Dr. Kaern Aly Admit Provider Dr. Karen Aly Attending [...] Attending Provider Dr. Syed Allen Emergency Provider [phone] Dr. Yisel Rendon Attending Provider Dr. Yisel [...] Attending Provider Dr. Smith Leija Other Provider [phone] Dr. Ryan Tinoco Referring Provider Dr. Júnior Chandra Attending Provider Dr. Júnior Chandra Referring Provider Dr. Karen Aly Referring Provider Dr. Caryl Mcdermott Referring Provider Dr. Smith Leija Referring Provider [phone] Marcos DANIEL, AAYUSH Juarez Attending Provider Dr. [...] Provider Dr. Caryl Mcdermott Referring Provider Dr. Olag Lidia Rasheed Other Provider Dr. Olga Lidia [...] Dr. Luis Caldera Primary Care Provider [phone] Dr. Syed Allen Emergency Provider Dr. Karen Aly Admit Provider Dr. Karen Aly Other Provider Dr. Yisel Rendon Attending Provider Dr. Yisel Rendon Other Provider Roxann, Dr. Hatfield Attending Provider Dr. Caryl Mcdermott Referring Provider Dr. Júnior Chandra Attending Provider Dr. Júnior Chandra Referring Provider Dr. Dandy Sauer Emergency Provider Dr. Luis Caldera Primary Care Provider Dr. Syed Allen Emergency Provider [phone] Dr. Karen Aly Admit Provider Dr. Karen Aly Other Provider Dr. Yisel Rendon Attending Provider Dr. Yisel Rendon Other Provider Dr. Olga Lidia Rasheed Other Provider Dr. Luis Caldera Primary Care Provider Dr. Luis Caldera Referring Provider Debi Wetzel Attending Provider Unavailable Marcos ASSESSMENT SPECIALIST, ASSESSMENT SPECIALIST-C Ann Attending Provider Dr. Luis Caldera Primary Care Provider Dr. Luis Caldera Referring Provider Dr. Olga Lidia Rasheed Attending Provider Verenice COLBERT, Dr. Smith Primary Care Provider Rosita COLBERT, Walter Attending Provider Unavailable Rosita COLBERT, Walter Referring Provider Unavailable Verenice COLBERT, Dr. Smith Referring Provider [phone] Wili COLBERT, Dr. Duggan Attending Provider Verenice COLBERT, Dr. Smith Primary Care Provider Rosita COLBERT, Walter Attending Provider Unavailable Rosita COLBERT, Walter Referring Provider Unavailable Dr. Nicholas Galarza DO Emergency Provider Harjeet ASSESSMENT SPECIALIST-CKuldip Primary Care Provider Jermain COLBERT, Dr. Karen Juan Admit Provider Jermain COLBERT, Dr. Karen Juan Attending Provider Verenice COLBERT, Dr. Smith Primary Care Provider Rosita COLBERT, Walter Attending Provider Unavailable Rosita COLBERT, Walter Referring Provider Unavailable Dr. Nicholas Galarza DO Emergency Provider Harjeet ASSESSMENT SPECIALIST-CKuldip Primary Care Provider Jermain COLBERT, Dr. Karen Juan Admit Provider Jermain COLBERT, Dr. Karen Juan Other Provider Roberto SCHUMACHER, Dr. Sweet Other Provider Billy COLBERT, Dr. Hugo Govea Attending Provider Dr. Aneesh Ac MD Other Provider Heladio COLBERT, Dr. Mtz Other Provider Billy COLBERT, Dr. Hugo Govea Other Provider Osorio COLBERT, Dr. Melendrez Attending Provider Meghana Valdivia Attending Provider Harjeet, Kuldip Primary Care Unavailable Aneesh Ac Attending Unavailable Bursley, Luis Primary Care Unavailable Deperro OLS, Walter Attending Unavailable Deperro OLS, Walter Attending Unavailable Bursley, Luis Primary Care Unavailable Bursley, Luis Primary Care Unavailable Deperro OLS, Walter Attending Unavailable Bursley, Luis Primary Care Unavailable Deperro OLS, Walter Attending Unavailable Deperro OLS, Walter Referring Unavailable Bursley, Luis Primary Care Unavailable Deperro OLS, Walter Attending Unavailable Harjeet, Kuldip Primary Care Unavailable Deperro OLS, Walter Attending Unavailable Primghar, Kuldip Primary Care Unavailable Deperro OLS, Walter Attending Unavailable Primghar, Kuldip Primary Care Unavailable Deperro OLS, Walter Attending Unavailable Bursley, Luis Primary Care Unavailable Deperro OLS, Walter Attending Unavailable Deperro OLS, Walter Referring Unavailable Bursley, Luis Primary Care Unavailable Deperro OLS, Walter Attending Unavailable Bursley, Luis Primary Care Unavailable Deperro OLS, Walter Attending Unavailable Primghar, Kuldip Primary Care Unavailable Deperro OLS, Walter Attending Unavailable Harjeet, Kuldip Primary Care Unavailable Deperro OLS, Walter Attending Unavailable Harjeet, Kuldip Primary Care Unavailable Deperro OLS, Walter Attending Unavailable Bursley, Luis Primary Care Unavailable Deperro OLS, Walter Attending Unavailable Bursley, Luis Primary Care Unavailable Deperro OLS, Walter Referring Unavailable Deperro OLS, Walter Attending Unavailable Bursley, Luis Primary Care Unavailable Deperro OLS, Walter Attending Unavailable Bursley, Luis Primary Care Unavailable Deperro OLS, Walter Attending Unavailable Bursley, Luis Primary Care Unavailable Deperro OLS, Walter Attending Unavailable Primghar, Kuldip Primary Care Unavailable Karen Aly Admitting Unavailable Kee Mejia Consulting Unavailable Hugo Cervantes Attending Unavailable Karen Aly Consulting Unavailable Hugo Cervantes Consulting Unavailable Aneesh Ac Consulting Unavailable Meghana Cole Attending Unavailable Primghar, Kuldip Primary Care Unavailable Kee Mejia Consulting Unavailable Karen Aly Admitting Unavailable Hugo Cervantes Attending Unavailable Karen Aly Consulting Unavailable Aneesh Ac Consulting Unavailable Smith Leija Consulting Unavailable Verenice, Luis Primary Care Unavailable Kee Merritt Referring Unavailable Kee Merritt Attending Unavailable Bursley, Luis Primary Care Unavailable Walter Sanders Attending Unavailable Aneesh Ac Attending Unavailable Smith Leija Consulting Unavailable Karen Aly Attending Unavailable Primghar, Kuldip Primary Care Unavailable Júnior Chandra Attending Unavailable Aneesh Ac Referring Unavailable Harjeet, Kuldip Primary Care Unavailable Harjeet, Kuldip Referring Unavailable Roof Deangelo DANIEL Attending Unavailable Olga Lidia Rasheed Attending Unavailable Peaceley, Luis Referring Unavailable Bursley, Luis Primary Care Unavailable Bursley, Luis Primary Care Unavailable Verenice, Luis Referring Unavailable Olga Lidia Rasheed Attending Unavailable Allergies Allergy Classification Reported Allergen(s) Allergy Type Date of Onset Reaction(s) Facility (20 sources) pantoprazole Drug Allergy 09-24-2019 Diarrhea [facility] (20 sources) Propofol Drug Allergy 12-06-2021 Other [facility] Comment on above: GETS AGGRESSIVE (1 source) Propofol Drug Allergy 02-02-2025 [facility] Repository Medications Current Medications Medication Drug Class(es) Dates Sig (Normalized) Sig (Original) acetaminophen 325 mg oral tablet (20 sources) Start: 10-07-2023 take 650 mg by mouth every twelve hours Acetaminophen Active 650 MG PO .q12hrs October 07, 2023 2:23pm Start: 02-11-2023 End: 10-07-2023 take 2 tablets by mouth three times daily Acetaminophen 325 mg Tablet Discontinued 650 mg PO THREE TIMES A DAY February 11, 2023 12:00am October 07, 2023 2:24pm PAIN AND FEVER Start: 02-11-2023 End: 10-07-2023 take 650 mg by mouth three times daily Acetaminophen Discontinued 650 MG PO THREE TIMES A DAY February 11, 2023 12:00am October 07, 2023 2:24pm Start: 01-08-2023 End: 10-07-2023 Start: 01-08-2023 End: 02-11-2023 take 2 tablets by mouth every four hours as needed for pain and fever Acetaminophen 325 mg Tablet Discontinued 650 mg PO EVERY 4 HOURS NEEDED as needed for PAIN AND FEVER 0 0 January 08, 2023 12:00am February 11, 2023 8:24pm Start: 01-08-2023 End: 02-11-2023 take 650 mg by mouth every four hours as needed Acetaminophen Discontinued 650 MG PO EVERY 4 HOURS NEEDED 0 January 08, 2023 12:00am February 11, 2023 8:24pm albuterol 0.833 mg/ml / ipratropium bromide 0.167 mg/ml inhalation solution (2 sources) Anticholinergic, beta2-Adrenergic Agonist Start: 02-02-2025 Start: 02-02-2025 take 1 mL by inhalat ion every four hours as needed Ipratropium-Albuterol 0.5 mg-3 mg(2.5 mg base)/3 mL solution for nebulization Active 3 mL INHALATION Q4H as needed for shortness of breath February 02, 2025 12:00am apixaban 5 mg oral tablet (4 sources) Factor Xa Inhibitor Start: 03-03-2024 ascorbic acid 500 mg oral tablet (12 sources) Vitamin C Start: 01-26-2023 aspirin 81 mg delayed release oral tablet (20 sources) Platelet Aggregation Inhibitor, Nonsteroidal Anti-inflammatory Drug Start: 07-11-2022 End: 07-25-2022 take 81 mg by mouth at breakfast Aspirin Active 81 MG PO WITH BREAKFAST July 11, 2022 12:00am Start: 09-19-2013 End: 01-11-2019 Comment on above: Take 81 mg by mouth once daily. atorvastatin 40 mg oral tabl et (20 sources) HMG-CoA Reductase Inhibitor Start: 04-01-2018 End: 04-10-2023 Start: 03-25-2018 End: 04-01-2018 Start: 03-25-2018 End: 04-01-2018 take 10 mg by mouth at bedtime Atorvastatin 20 MG tabl et Discontinued 10 mg PO AT BEDTIME March 25, 2018 12:00am April 01, 2018 11:27am Cholesterol Start: 03-25-2018 End: 04-01-2018 take 10 mg by mouth at bedtime Atorvastatin Discontinu ed 10 MG PO AT BEDTIME March 25, 2018 12:00am April 01, 2018 11:27am Start: 03-25-2018 End: 04-01-2018 Comment on above: TAKE 1 TABLET BY SAJAN TH ONCE DAILY. FOR CHOLESTEROL. bisacodyl 10 mg rectal suppository (20 sources) Stimulant Laxative Start: Cholecalciferol (20 sources) Vitamin D Start: take 1 tablet by mouth once Cholecalciferol (Vitamin D3) 1,250 mcg (50,000 unit) tablet Active 1250 ug PO MO January 21, 2023 12:00am SUPPLEMENT Start: 01-21-2023 take 1 tablet by mouth once Ch olecalciferol (Vitamin D3) 1,250 mcg (50,000 unit) tablet [...] Comment on above: Take 1 capsule by [facility] one time a week. clopidogrel 75 mg oral table t (1 source) P2Y12 Platelet Inhibitor Start: 02-11-2025 docusate sodium 50 mg / sennosides, long-term 8.6 mg oral tablet (12 sources) Start: 01-26-2023 Start: 01-26-2023 take 2 tablets by [facility] twice daily Sennosides-Docusate Sodium (Stool Softener-Stimulant Laxat) 8.6-50 mg Tablet Active 2 TABLET PO TWICE A DAY 0 January 26, 2023 12:00am doxycycline monohydrate 100 mg oral capsule (1 source) Tetracycline-class Drug Start: 02-11-2025 ergocalciferol 1.25 mg oral capsule (3 sources) Provitamin D2 Compound Start: 03-02-2022 Ergocalciferol (Vitamin D2) Active 1250 MCG PO GARCIA March 01, 2022 11:00pm ferrous sulfate 325 mg oral tablet (20 sources) Start: 10-07-2023 take 1 tablet by mouth once daily Ferrous Sulfate 325 mg (65 mg iron) tablet Active 325 mg PO DAILY October 07, 2023 12:00am Start: 02-05-2023 End: 10-07-2023 Start: 01-26-2023 End: 02-05-2023 fluticasone propionate 0.05 mg/actuat metered dose nasal [...] insulin pen Active 15 U SC DAILY 15 0 January 26, 2023 11:45am diabetes Start: 07-12-2022 insulin glargi ne (LANTUS SOLOSTAR U-100 INSULIN) 100 unit/mL (3 mL) Indications: Type 2 diabetes mellitus with diabetic neuropathy, with long-term current use of insulin (HCC) Inject 12 Units subcutaneously daily at bedtime. 0 07/12/2022 Active Start: 07-11-2022 End: 01-26-2023 Insulin Glargine (Lantus Mily ostar U-100 Insulin) 100 UNITS/ML insulin pen Discontinued 12 U SC DAILY 15 0 July 11, 2022 5:01pm January 26, 2023 11:46am diabetes Start: 02-06-2022 End: 07-12-2022 insulin glargine (LANTUS [...] 22, 2018 2:58pm July 11, 2022 5:01pm diabetes Start: 04-01-2018 End: 01-26-2023 Start: 04-01-2018 End: 05-22-2018 Insulin Glargine (Lantus Mily ostar U-100 Insulin) 100 UNITS/ML Pen Discontinued 14 U SC DAILY 0 April 01, 2018 12:00am May 22, 2018 2:58pm Comment on above: Inject 24 Units subc [...] Analog Start: 01-21-2023 Start: 05-22-2018 End: 01-08-2023 Start: 05-22-2018 End: 01-08-2023 Insulin Lispro (Humalog Kwik pen Insulin) 100 UNIT/ML insulin pen Discontinued 0 U SQ 4 TIMES DAILY May 22, 2018 1:00am January 08, 2023 11:53am diabetes Please contact the information source for Protocol details. Start: 05-22-2018 End: 01-08-2023 Insulin Lispro (Humalog Kwik pen Insulin) 100 UNIT/ML insulin pen Discontinued 0 UNIT SQ 4 TIMES DAILY May 22, 2018 1:00am January 08, 2023 11:53am Start: 05-22-2018 End: 01-08-2023 Start: 09-16-2013 End: 09-19-2013 loperamide hydrochloride 2 m g oral capsule (20 sources) Opioid Agonist Start: 05-30-2023 losartan potassium 50 mg ora l tablet (20 sources) Angiotensin 2 Receptor Red Start: 03-24-2018 End: 08-09-2022 Comment on above: Take 1 tablet by sajan th once daily. melatonin 3 mg oral tablet (20 sources) Start: 01-08-2023 End: 02-10-2023 Start: 01-08-2023 End: 02-10-2023 take 1 tablet by mouth at bedtime Melatonin 3 mg Table t Active 3 mg PO AT BEDTIME February 10, 2023 12:00am Insomnia Start: 01-08-2023 End: 02-10-2023 memantine hydrochloride 10 mg oral tablet (20 sources) Q-nnyqxu-I-aspartate Receptor Antagonist Start: 01-26-2023 End: 02-13-2023 Start: 01-26-2023 End: 02-13-2023 take 1 tablet by mouth once daily in the evening Memantine 10 mg tablet Discontinued 10 mg PO EVERY EVENING 0 January 26, 2023 12:00am February 13, 2023 2:15pm menthol 0.05 mg/mg topical g el (10 sources) Start: 02-10-2023 metFORMIN hydrochloride 1000 mg oral tablet (20 sources) Biguanide Start: 01-21-2023 Start: 11-24-2021 End: 02-18-2023 take 2 tablets [...] daily with breakfast. Take 1 tablet by [facility] daily with breakfast. 24 hr metoprolol succinate 2 5 mg extended release oral capsule (20 sources) beta-Adrenergic Red Start: 02-02-2025 Start: 03-27-2023 End: 02-02-2025 Start: 09-16-2013 End: 01-26-2023 Comment on above: Take 1 tablet by [facility] once daily. mupirocin 0.02 mg/mg topical ointment (5 sources) RNA Synthetase Inhibitor Antibacterial Start: 01-01-2022 End: 01-11-2022 mupirocin (BACTROBAN) 2 % ointment Indications: Wound of left lower extremity, initial encounter Apply to affected area twice daily for 10 days. 30 g 1 01/01/2022 01/11/2022 Active Comment on above: Apply to affected ar ea twice daily for 10 days. pantoprazole 40 mg delayed release oral tablet (20 sources) Proton Pump Inhibitor Start: 01-26-2023 End: 02-05-2023 Start: 01-11-2019 End: 03-17-2019 PARoxetine hydrochloride 30 mg oral tablet (4 sources) Serotonin Reuptake Inhibitor Start: 04-07-2024 perflutren lipid microspheres 1.3 mL in NaCl [...] sources) Aluminum Complex Start: 01-26-2023 End: 02-05-2023 Start: 01-26-2023 End: 02-05-2023 Sucralfate 1 gram Tablet Act priti 1 g PO 0700,1100,1600 90 2 February 05, 2023 12:00am Start: 01-26-2023 End: 02-05-2023 tamsulosin hydrochloride 0.4 mg oral capsule (20 sources) alpha-Adrenergic Red Start: 01-01-2022 End: 02-05-2023 Comment on above: Take 1 capsule by mo [facility] daily at bedtime. (14 sources) Start: 10-07-2023 Start: 01-21-2023 Completed/Discontinued Medications Medication Drug Class(es) Dates Sig (Normalized) Sig (Original) acetaminophen 325 mg / HYDROcodone bitartrate 5 mg oral tablet (20 sources) Opioid Agonist Start: 03-27-2023 End: 10-07-2023 Start: 03-27-2023 End: 10-07-2023 Hydrocodone-Acetaminophen 5- 325 mg tablet Discontinued 1 {tbl} PO EVERY 6 HOURS as needed for pain 0 March 27, 2023 12:00am October 07, 2023 2:24pm Start: 03-27-2023 End: 10-07-2023 take 1 tablet by mouth every six hours Hydrocodone-Acetaminophen Discontinued 1 TABLET PO EVERY 6 HOURS March 27, 2023 12:00am October 07, 2023 2:24pm Start: 03-27-2023 acetaminophen 325 mg / oxyCO DONE hydrochloride 5 mg oral tablet (20 sources) Opioid Agonist Start: 03-17-2019 End: 03-27-2019 Start: 03-17-2019 End: 03-27-2019 Oxycodone-Acetaminophen 1 TA BLET tablet Discontinued 1 {tbl} PO EVERY 6 HOURS NEEDED as needed for Pain 12 3 0 March 17, 2019 March 19, 2019 12:00am March 27, 2019 12:09am Calculus of ureter Start: 03-17-2019 End: 03-27-2019 take 1 tablet by mouth every six hours as needed Oxycodone-Acetaminophen Discontinued 1 TABLET PO EVERY 6 HOURS NEEDED 12 3 March 17, 2019 March 27, 2019 12:09am Start: 03-17-2019 End: 03-27-2019 amLODIPine 2.5 mg oral tablet (20 sources) Dihydropyridine Calcium Channel Red Start: 07-11-2022 End: 10-07-2023 Comment on above: Take 2.5 mg by [...] sources) Cephalosporin Antibacterial Start: 02-11-2023 End: 03-27-2023 chlorthalidone 25 mg oral tablet (20 sources) Thiazide-like Diuretic Start: 03-24-2018 End: 04-01-2018 docusate sodium 100 mg oral tablet (20 sources) End: 08-09-2022 take 1 tablet by mouth once daily Docusate Sodium 100 mg tab Take 100 mg by mouth once daily. 0 08/09/2022 Discontinued Comment on above: Take 100 mg by mouth once daily. donepezil hydrochloride 10 mg oral tablet (20 sources) Start: 01-21-2023 End: 01-26-2023 Start: 01-21-2023 End: 01-26-2023 take 1 tablet by mouth at bedtime Donepezil 10 mg tablet Discontinued 10 mg PO AT BEDTIME January 21, 2023 12:00am January 26, 2023 12:46pm DEMENTIA Start: 01-21-2023 End: 01-26-2023 Start: 01-08-2023 End: 01-26-2023 0.5 ml dulaglutide 3 mg/ml a uto-injector (20 sources) GLP-1 Receptor Agonist Start: 05-22-2018 End: 01-08-2023 Start: 03-24-2018 End: 04-01-2018 Comment on above: Inject 1.5 mg subcut aneously one time a week. Inject once per week. Discard Pen After DULoxetine 30 mg delayed release oral capsule (20 sources) Serotonin and Norepinephrine Reuptake Inhibitor Start: 10-07-2023 End: 04-07-2024 Start: 01-21-2023 End: 10-07-2023 Start: 01-08-2023 End: 01-21-2023 3 ml insulin aspart, human 100 unt/ml [...] dose per day: 45 units. 5 Each 08/16/2022 Active Start: 10-28-2020 End: 08-09-2022 insulin [...] (20 sources) Angiotensin Converting Enzyme Inhibitor Start: 09-16-2013 End: 09-19-2013 pioglitazone 30 mg oral tabl et (20 sources) Peroxisome Proliferator Receptor alpha Agonist, Peroxisome Proliferator Receptor gamma Agonist, Thiazolidinedione Start: 03-24-2018 End: 04-01-2018 warfarin sodium 10 mg oral tablet (20 sources) Vitamin K Antagonist Start: 10-07-2023 End: 03-03-2024 Start: 10-07-2023 End: 03-03-2024 Start: 10-07-2023 End: 03-03-2024 take 1 tablet by mouth once Warfarin 10 mg tablet Disc ontinued 10 mg PO every Saturday, Saturday, and Saturday October 07, 2023 12:00am March 03, 2024 2:59pm Start: 10-07-2023 End: 03-03-2024 take 1 tablet by mouth once Warfarin 4 mg tablet Disco ntinued 4 mg PO every Saturday, , Saturday, and Saturday October 07, 2023 12:00am March 03, 2024 2:59pm Start: 02-13-2023 End: 03-03-2024 Start: 02-13-2023 End: 10-07-2023 take 2 tablets by mouth at dinner Warfarin (Jantoven) 4 mg Tablet Discontinued 8 mg PO WITH DINNER 0 0 February 13, 2023 12:00am October 07, 2023 2:21pm On Hold: PROCEDURE/GI BLEED Start: 02-13-2023 Start: 03-02-2022 End: 02-13-2023 take 2 tablets by mouth once Warfarin 5 mg tablet Disc ontinued 10 mg PO MO March 02, 2022 12:00am February 13, 2023 2:17pm BLOOD THINNER Start: 03-02-2022 End: 02-13-2023 take 10 mg [...] Discon tinued 7.5 mg PO MOTUWETHFRSA 0 0 January 11, 2019 12:39pm December 06, 2021 11:57pm starting 5 mg on 01/12/19 and then as written Start: 01-11-2019 End: 12-06-2021 Warfarin Discontinued 7.5 MG PO MOTUWETHFRSA 0 January 11, 2019 12:39pm December 06, 2021 11:57pm starting 5 mg on 01/12/19 and then as written Start: 11-30-2018 End: 12-06-2021 Start: 11-30-2018 End: 01-11-2019 Warfarin 10 MG tablet Discon tinued 10 mg PO MOTUWETHFRSA November 30, 2018 12:00am January 11, 2019 12:39pm Start: 11-30-2018 End: 12-06-2021 Start: 05-22-2018 End: 02-13-2023 Warfarin (Jantoven) 5 MG tab let Discontinued 7.5 mg PO SUTUWETHFRSA May 22, 2018 2:58pm February 13, 2023 2:15pm anticoagulant Start: 09-19-2013 End: 02-13-2023 Comment on above: 10 mg Saturday and [...] [Chronic kidney disease, stage 3a] Onset: 5 Chronic ulcer of skin (1 source) Non-pressure chronic ulcer of other part of unspecified foot with unspecified severity; Translations: [Non-pressure chronic ulcer of other part of unspecified foot with unspecified severity] Onset: 5 Chronic Coagulation and hemorrhagic disorders (20 sources) Blood [...] Coronary atherosclerosis; Translations: [Atherosclerotic heart disease of [place] coronary artery without angina pectoris] Chronic Deficiency and other anemia (1 source) Iron deficiency anemia secondary to blood loss (chronic); Translations: [Iron deficiency anemia secondary to blood loss (chronic)] Onset: 5 Chronic Deficiency and other anemia (20 sources) Anemia; Translations: [Anemia, unspecified] 01-24-2023 Episodic Deficiency and other anemia (2 sources) Anemia, unspecified; Translations: [Anemia, unspecified] 01-26-2023 Episodic Diabetes mellitus with complications (20 sources) Polyneuropathy due to type 2 diabetes mellitus; Translations: [Type 2 diabetes mellitus with diabetic polyneuropathy] Onset: 1 10-26-2020 Chronic Diabetes mellitus without complication (9 sources) Type 2 diabetes mellitus; Translations: [Type [...] lower urinary tract symptoms] Onset: 3 Chronic Infective arthritis and osteomyelitis (except that caused by tuberculosis or sexually transmitted disease) (20 sources) Osteomyelitis; Translations: [Osteomyelitis, unspecified] Onset: 5 12-27-2021 Chronic Comment on above: right first [...] sources) Long-term current use of anticoagulant; Translations: [FPC (current) use of anticoagulants] Onset: 8 11-06-2018 Episodic Other and unspecified benign neoplasm (1 source) Polyp of cecum; Translations: [Polyp of colon] Episodic Other bone disease and musculoskeletal deformities (20 sources) Absence of toe; Translations: [Acquired absence of right great toe] Onset: 0 07-20-2019 Chronic Other circulatory disease (1 source) Low [...] rep air 2006. Peripheral and visceral atherosclerosis (4 sources) Peripheral vascular disease, unspecified; Translations: [Peripheral arterial disease] Onset: 4 02-04-2025 Chronic Pneumonia (except that caused by tuberculosis or sexually transmitted disease) (5 sources) Pneumonia; Translations: [Pneumonia, unspecified organism] Onset: 5 02-03-2025 Episodic Pulmonary heart disease (20 sources) Pulmonary [...] sources) Delirium; Translations: [Disorientation, unspecified] 02-11-2023 Episodic Septicemia (except in labor) (1 source) Sepsis, unspecified organism; Translations: [Sepsis, unspecified organism] Onset: Episodic Shock (1 source) Hemorrhagic shock; Translations: [Other shock] Episodic Skin and subcutaneous tissue infections (3 sources) Cellulitis of left lower limb; Translations: [Cellulitis of left lower limb] Onset: 5 02-03-2025 Episodic Spondylosis; intervertebral disc disorders; other back [...] unspecified] Onset: 03-20-2019 03-20-2019 Episodic Other aftercare (1 source) 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; Translations: [FPC (current) use of anticoagulants] Onset: 03-09-2024 Episodic Other nervous system disorders (20 sources) Abnormal gait due to impairment of balance; Translations: [Other abnormalities of gait and mobility] Onset: 01-12-2022 Episodic Unclassified (20 sources) RBBB (right bundle 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) 12-27-2021 Results Test Name Value Interpretation Reference Range Facility Basic Metabolic Profile (BMP )on 02-25-2025 BUN/CRE 30.8 RATIO High 10-20 [facility] Comment on above: Order Comment: 215.2 Performed By: #### L [id number] ####[facility] [id number] [place], [address] Calcium [Mass/Vol] 10.0 mg/dL Normal 7.6-11.0 [facility] Comment on above: Order Comment: 215.2 Performed By: #### L [id number] ####[facility] [id number] [place], [address] Chloride [Moles/Vol] 100 mmol/L Normal 98-108 [facility] Comment on above: Order Comment: 215.2 Performed By: #### L [id number] ####[facility] [id number] [place], [address] CO2 [Moles/Vol] 27.9 mmol/L Normal 21.0-32.0 [facility] Comment on above: Order Comment: 215.2 Performed By: #### L [id number] ####[facility] [facility] [address] [place], [address] Creatinine [Mass/Vol] 1.31 mg/dL High 0.70-1.20 [facility] Comment on above: Order Comment: 215.2 Performed By: #### L 500.2500 ####[facility] [address] [place], [address] GAP 12 Normal 5-15 [facility] Comment on above: Order Comment: 215.2 Performed By: #### L 500.2500 ####[facility] [address] [place], [address] GFR/1.73 sq M.predicted among non-blacks MDRD (S/P/Bld) [Vol rate/Area] 56 mL/min/{1.73_m2} Low >60 [facility] Comment on above: Order Comment: 215.2 Result Comment: mL/m in/1.73m2 CKD-EPI Creatinine Equation (2020) Performed By: #### L 500.2500 ####[facility] [address] [place], [address] Glucose [Mass/Vol] 158 mg/dL High 70-99 [facility] Comment on above: Order Comment: 215.2 Performed By: #### L 500.2500 ####[facility] [address] [place], [address] Potassium [Moles/Vol] 3.8 mmol/L Normal 3.3-5.1 [facility] Comment on above: Order Comment: 215.2 Performed By: #### L 500.2500 ####[facility] [address] [place], [address] Sodium [Moles/Vol] 140 mmol/L Normal 133-145 [facility] Comment on above: Order Comment: 215.2 Performed By: #### L 500.2500 ####[facility] [address] [place], [address] Urea nitrogen [Mass/Vol] 40 mg/dL High 4-19 [facility] Comment on above: Order Comment: 215.2 Performed By: #### L 500.2500 ####[facility] [address] [place], [address] Basic Metabolic Profile (BMP )on 02-22-2025 BUN/CRE 28.7 RATIO High 10-20 [facility] Comment on above: Order Comment: 215.2 Performed By: #### L 500.2500 ####[facility] [address] [place], [address] Calcium [Mass/Vol] 9.7 mg/dL Normal 7.6-11.0 [facility] Comment on above: Order Comment: 215.2 Performed By: #### L 500.2500 ####[facility] [address] [place], [address] Chloride [Moles/Vol] 100 mmol/L Normal 98-108 [facility] Comment on above: Order Comment: 215.2 Performed By: #### L 500.2500 ####[facility] [address] [place], [address] CO2 [Moles/Vol] 27.5 mmol/L Normal 21.0-32.0 [facility] Comment on above: Order Comment: 215.2 Performed By: #### L 500.2500 ####[facility] [address] [place], [address] Creatinine [Mass/Vol] 1.45 mg/dL High 0.70-1.20 [facility] Comment on above: Order Comment: 215.2 Performed By: #### L 500.2500 ####[facility] [address] [place], [address] GAP 13 Normal 5-15 [facility] Comment on above: Order Comment: 215.2 Performed By: #### L 500.2500 ####[facility] [address] [place], [address] GFR/1.73 sq M.predicted among non-blacks MDRD (S/P/Bld) [Vol rate/Area] 50 mL/min/{1.73_m2} Low >60 [facility] Comment on above: Order Comment: 215.2 Result Comment: mL/m in/1.73m2 CKD-EPI Creatinine Equation (2020) Performed By: #### L 500.2500 ####[facility] [address] [place], [address] Glucose [Mass/Vol] 152 mg/dL High 70-99 [facility] Comment on above: Order Comment: 215.2 Performed By: #### L 500.2500 ####[facility] [address] [place], [address] Potassium [Moles/Vol] 3.5 mmol/L Normal 3.3-5.1 [facility] Comment on above: Order Comment: 215.2 Performed By: #### L 500.2500 ####[facility] [address] [place], [address] Sodium [Moles/Vol] 140 mmol/L Normal 133-145 [facility] Comment on above: Order Comment: 215.2 Performed By: #### L 500.2500 ####[facility] [address] [place], [address] Urea nitrogen [Mass/Vol] 42 mg/dL High 4-19 [facility] Comment on above: Order Comment: 215.2 Performed By: #### L 500.2500 ####[facility] [address] [place], [address] Basic Metabolic Profile (BMP )on 02-18-2025 BUN/CRE 29.0 RATIO High 10-20 [facility] Comment on above: Order Comment: 215-2 Performed By: #### L 500.2500, L100.0500 ####[facility] [address] [place], [address] Calcium [Mass/Vol] 9.0 mg/dL Normal 7.6-11.0 [facility] Comment on above: Order Comment: 215-2 Performed By: #### L 500.2500, L100.0500 ####[facility] [address] [place], [address] Chloride [Moles/Vol] 105 mmol/L Normal 98-108 [facility] Comment on above: Order Comment: 215-2 Performed By: #### L 500.2500, L100.0500 ####[facility] [address] [place], [address] CO2 [Moles/Vol] 27.8 mmol/L Normal 21.0-32.0 [facility] Comment on above: Order Comment: 215-2 Performed By: #### L 500.2500, L100.0500 ####[facility] [address] [place], [address] Creatinine [Mass/Vol] 1.42 mg/dL High 0.70-1.20 [facility] Comment on above: Order Comment: 215-2 Performed By: #### L 500.2500, L100.0500 ####[facility] [address] [place], [address] GAP 10 Normal 5-15 [facility] Comment on above: Order Comment: 215-2 Performed By: #### L 500.2500, L100.0500 ####[facility] [address] [place], [address] GFR/1.73 sq M.predicted among non-blacks MDRD (S/P/Bld) [Vol rate/Area] 51 mL/min/{1.73_m2} Low >60 [facility] Comment on above: Order Comment: 215-2 Result Comment: mL/m in/1.73m2 CKD-EPI Creatinine Equation (2020) Performed By: #### L 500.2500, L100.0500 ####[facility] [address] [place], [address] Glucose [Mass/Vol] 140 mg/dL High 70-99 [facility] Comment on above: Order Comment: 215-2 Performed By: #### L 500.2500, L100.0500 ####[facility] [address] [place], [address] Potassium [Moles/Vol] 4.0 mmol/L Normal 3.3-5.1 [facility] Comment on above: Order Comment: 215-2 Performed By: #### L 500.2500, L100.0500 ####[facility] [address] [place], [address] Sodium [Moles/Vol] 143 mmol/L Normal 133-145 [facility] Comment on above: Order Comment: 215-2 Performed By: #### L 500.2500, L100.0500 ####[facility] [address] [place], [address] Urea nitrogen [Mass/Vol] 41 mg/dL High 4-19 [facility] Comment on above: Order Comment: 215-2 Performed By: #### L 500.2500, L100.0500 ####[facility] [address] [place], [address] CBC-Complete Blood Cnt No Di ffon 02-18-2025 Erythrocyte distribution width (RBC) [Ratio] 13.8 % Normal 11.6-14.6 [facility] Comment on above: Order Comment: 215-2 Performed By: #### L 500.2500, L100.0500 ####[facility] [address] [place], [address] Hematocrit (Bld) [Volume fraction] 30.2 % Low 40-54 [facility] Comment on above: Order Comment: 215-2 Performed By: #### L 500.2500, L100.0500 ####[facility] [address] [place], [address] Hemoglobin (Bld) [Mass/Vol] 9.4 g/dL Low 13.0-16. 5 [facility] Comment on above: Order Comment: 215-2 Performed By: #### L 500.2500, L100.0500 ####[facility] [address] [place], [address] MCH (RBC) [Entitic mass] 27.2 pg Normal 27.0-32.0 [facility] Comment on above: Order Comment: 215-2 Performed By: #### L 500.2500, L100.0500 ####[facility] [address] [place], [address] MCHC (RBC) [Mass/Vol] 31.1 g/dL Low 32-36 [facility] Comment on above: Order Comment: 215-2 Performed By: #### L 500.2500, L100.0500 ####[facility] [address] [place], [address] MCV (RBC) [Entitic vol] 87.3 fL Normal 80-94 [facility] Comment on above: Order Comment: 215-2 Performed By: #### L 500.2500, L100.0500 ####[facility] [address] [place], [address] Platelet mean volume (Bld) [Entitic vol] 9.4 fL Normal 6.2-12.0 [facility] Comment on above: Order Comment: 215-2 Performed By: #### L 500.2500, L100.0500 ####[facility] [address] [place], [address] Platelets (Bld) [#/Vol] 368 10*3/uL Normal 150-450 [facility] Comment on above: Order Comment: 215-2 Performed By: #### L 500.2500, L100.0500 ####[facility] [address] [place], [address] RBC (Bld) [#/Vol] 3.46 10*6/uL Low 4.6-6.2 [facility] Comment on above: Order Comment: 215-2 Performed By: #### L 500.2500, L100.0500 ####[facility] [address] [place], [address] RDW SD 43.8 fl Normal 35.1-43.9 [facility] Comment on above: Order Comment: 215-2 Performed By: #### L 500.2500, L100.0500 ####[facility] [address] [place], [address] WBC (Bld) [#/Vol] 10.0 10*3/uL Normal 4.4-11.0 [facility] Comment on above: Order Comment: 215-2 Performed By: #### L 500.2500, L100.0500 ####[facility] [address] [place], [address] Basic Metabolic Profile (BMP )on 02-17-2025 BUN/CRE 26.5 RATIO High 10-20 [facility] Comment on above: Order Comment: 215-2 Performed By: #### L 500.2500, L100.0500 ####[facility] [address] [place], [address] Calcium [Mass/Vol] 9.1 mg/dL Normal 7.6-11.0 [facility] Comment on above: Order Comment: 215-2 Performed By: #### L 500.2500, L100.0500 ####[facility] [address] [place], [address] Chloride [Moles/Vol] 105 mmol/L Normal 98-108 [facility] Comment on above: Order Comment: 215-2 Performed By: #### L 500.2500, L100.0500 ####[facility] [address] [place], [address] CO2 [Moles/Vol] 26.3 mmol/L Normal 21.0-32.0 [facility] Comment on above: Order Comment: 215-2 Performed By: #### L 500.2500, L100.0500 ####[facility] [address] [place], [address] Creatinine [Mass/Vol] 1.48 mg/dL High 0.70-1.20 [facility] Comment on above: Order Comment: 215-2 Performed By: #### L 500.2500, L100.0500 ####[facility] [address] [place], [address] GAP 12 Normal 5-15 [facility] Comment on above: Order Comment: 215-2 Performed By: #### L 500.2500, L100.0500 ####[facility] [address] [place], [address] GFR/1.73 sq M.predicted among non-blacks MDRD (S/P/Bld) [Vol rate/Area] 48 mL/min/{1.73_m2} Low >60 [facility] Comment on above: Order Comment: 215-2 Result Comment: mL/m in/1.73m2 CKD-EPI Creatinine Equation (2020) Performed By: #### L 500.2500, L100.0500 ####[facility] [address] [place], [address] Glucose [Mass/Vol] 132 mg/dL High 70-99 [facility] Comment on above: Order Comment: 215-2 Performed By: #### L 500.2500, L100.0500 ####[facility] [address] [place], [address] Potassium [Moles/Vol] 3.7 mmol/L Normal 3.3-5.1 [facility] Comment on above: Order Comment: 215-2 Performed By: #### L 500.2500, L100.0500 ####[facility] [address] [place], [address] Sodium [Moles/Vol] 143 mmol/L Normal 133-145 [facility] Comment on above: Order Comment: 215-2 Performed By: #### L 500.2500, L100.0500 ####[facility] [address] [place], [address] Urea nitrogen [Mass/Vol] 39 mg/dL High 4-19 [facility] Comment on above: Order Comment: 215-2 Performed By: #### L 500.2500, L100.0500 ####[facility] [address] [place], [address] CBC-Complete Blood Cnt No ffon 02-17-2025 Erythrocyte distribution width (RBC) [Ratio] 13.8 % Normal 11.6-14.6 [facility] Comment on above: Order Comment: 215-2 Performed By: #### L 500.2500, L100.0500 ####[facility] [address] [place], [address] Hematocrit (Bld) [Volume fraction] 30.1 % Low 40-54 [facility] Comment on above: Order Comment: 215-2 Performed By: #### L 500.2500, L100.0500 ####[facility] [address] [place], [address] Hemoglobin (Bld) [Mass/Vol] 9.4 g/dL Low 13.0-16. 5 [facility] Comment on above: Order Comment: 215-2 Performed By: #### L 500.2500, L100.0500 ####[facility] [address] [place], [address] MCH (RBC) [Entitic mass] 27.4 pg Normal 27.0-32.0 [facility] Comment on above: Order Comment: 215-2 Performed By: #### L 500.2500, L100.0500 ####[facility] [address] [place], [address] MCHC (RBC) [Mass/Vol] 31.2 g/dL Low 32-36 [facility] Comment on above: Order Comment: 215-2 Performed By: #### L 500.2500, L100.0500 ####[facility] [address] [place], [address] MCV (RBC) [Entitic vol] 87.8 fL Normal 80-94 [facility] Comment on above: Order Comment: 215-2 Performed By: #### L 500.2500, L100.0500 ####[facility] [address] [place], [address] Platelet mean volume (Bld) [Entitic vol] 9.7 fL Normal 6.2-12.0 [facility] Comment on above: Order Comment: 215-2 Performed By: #### L 500.2500, L100.0500 ####[facility] [address] [place], [address] Platelets (Bld) [#/Vol] 385 10*3/uL Normal 150-450 [facility] Comment on above: Order Comment: 215-2 Performed By: #### L 500.2500, L100.0500 ####[facility] [address] [place], [address] RBC (Bld) [#/Vol] 3.43 10*6/uL Low 4.6-6.2 [facility] Comment on above: Order Comment: 215-2 Performed By: #### L 500.2500, L100.0500 ####[facility] [address] [place], [address] RDW SD 44.2 fl High 35.1-43.9 [facility] Comment on above: Order Comment: 215-2 Performed By: #### L 500.2500, L100.0500 ####[facility] [address] [place], [address] WBC (Bld) [#/Vol] 11.3 10*3/uL High 4.4-11.0 [facility] Comment on above: Order Comment: 215-2 Performed By: #### L 500.2500, L100.0500 ####[facility] [address] [place], [address] Basic Metabolic Profile (BMP )on 02-16-2025 BUN/CRE 25.8 RATIO High 10-20 [facility] Comment on above: Order Comment: 215.2 Performed By: #### L 500.2500, L100.0500 ####[facility] [address] [place], [address] Calcium [Mass/Vol] 9.0 mg/dL Normal 7.6-11.0 [facility] Comment on above: Order Comment: 215.2 Performed By: #### L 500.2500, L100.0500 ####[facility] [address] [place], [address] Chloride [Moles/Vol] 104 mmol/L Normal 98-108 [facility] Comment on above: Order Comment: 215.2 Performed By: #### L 500.2500, L100.0500 ####[facility] [address] [place], [address] CO2 [Moles/Vol] 26.2 mmol/L Normal 21.0-32.0 [facility] Comment on above: Order Comment: 215.2 Performed By: #### L 500.2500, L100.0500 ####[facility] [address] [place], [address] Creatinine [Mass/Vol] 1.46 mg/dL High 0.70-1.20 [facility] Comment on above: Order Comment: 215.2 Performed By: #### L 500.2500, L100.0500 ####[facility] [address] [place], [address] GAP 11 Normal 5-15 [facility] Comment on above: Order Comment: 215.2 Performed By: #### L 500.2500, L100.0500 ####[facility] [address] [place], [address] GFR/1.73 sq M.predicted among non-blacks MDRD (S/P/Bld) [Vol rate/Area] 49 mL/min/{1.73_m2} Low >60 [facility] Comment on above: Order Comment: 215.2 Result Comment: mL/m in/1.73m2 CKD-EPI Creatinine Equation (2020) Performed By: #### L 500.2500, L100.0500 ####[facility] [address] [place], [address] Glucose [Mass/Vol] 137 mg/dL High 70-99 [facility] Comment on above: Order Comment: 215.2 Performed By: #### L 500.2500, L100.0500 ####[facility] [address] [place], [address] Potassium [Moles/Vol] 3.8 mmol/L Normal 3.3-5.1 [facility] Comment on above: Order Comment: 215.2 Performed By: #### L 500.2500, L100.0500 ####[facility] [address] [place], [address] Sodium [Moles/Vol] 142 mmol/L Normal 133-145 [facility] Comment on above: Order Comment: 215.2 Performed By: #### L 500.2500, L100.0500 ####[facility] [address] [place], [address] Urea nitrogen [Mass/Vol] 38 mg/dL High 4-19 [facility] Comment on above: Order Comment: 215.2 Performed By: #### L 500.2500, L100.0500 ####[facility] [address] [place], [address] CBC-Complete Blood Cnt No Di ffon 02-16-2025 Erythrocyte distribution width (RBC) [Ratio] 13.6 % Normal 11.6-14.6 [facility] Comment on above: Order Comment: 215.2 Performed By: #### L 500.2500, L100.0500 ####[facility] [address] [place], [address] Hematocrit (Bld) [Volume fraction] 29.5 % Low 40-54 [facility] Comment on above: Order Comment: 215.2 Performed By: #### L 500.2500, L100.0500 ####[facility] [address] [place], [address] Hemoglobin (Bld) [Mass/Vol] 9.3 g/dL Low 13.0-16. 5 [facility] Comment on above: Order Comment: 215.2 Performed By: #### L 500.2500, L100.0500 ####[facility] [address] [place], [address] MCH (RBC) [Entitic mass] 27.1 pg Normal 27.0-32.0 [facility] Comment on above: Order Comment: 215.2 Performed By: #### L 500.2500, L100.0500 ####[facility] [address] [place], [address] MCHC (RBC) [Mass/Vol] 31.5 g/dL Low 32-36 [facility] Comment on above: Order Comment: 215.2 Performed By: #### L 500.2500, L100.0500 ####[facility] [address] [place], [address] MCV (RBC) [Entitic vol] 86.0 fL Normal 80-94 [facility] Comment on above: Order Comment: 215.2 Performed By: #### L 500.2500, L100.0500 ####[facility] [address] [place], [address] Platelet mean volume (Bld) [Entitic vol] 9.4 fL Normal 6.2-12.0 [facility] Comment on above: Order Comment: 215.2 Performed By: #### L 500.2500, L100.0500 ####[facility] [address] [place], [address] Platelets (Bld) [#/Vol] 360 10*3/uL Normal 150-450 [facility] Comment on above: Order Comment: 215.2 Performed By: #### L 500.2500, L100.0500 ####[facility] [address] [place], [address] RBC (Bld) [#/Vol] 3.43 10*6/uL Low 4.6-6.2 [facility] Comment on above: Order Comment: 215.2 Performed By: #### L 500.2500, L100.0500 ####[facility] [address] [place], [address] RDW SD 42.7 fl Normal 35.1-43.9 [facility] Comment on above: Order Comment: 215.2 Performed By: #### L 500.2500, L100.0500 ####[facility] [address] [place], [address] WBC (Bld) [#/Vol] 12.5 10*3/uL High 4.4-11.0 [facility] Comment on above: Order Comment: 215.2 Performed By: #### L 500.2500, L100.0500 ####[facility] [address] [place], [address] Basic Metabolic Profile (BMP )on 02-15-2025 BUN/CRE 24.7 RATIO High 10-20 [facility] [place] Comment on above: Order Comment: 215-2 Performed By: #### L 100.0500, L500.2500 ####[facility] [address] [place], [address] Calcium [Mass/Vol] 9.0 mg/dL Normal 7.6-11.0 [facility] Comment on above: Order Comment: 215-2 Performed By: #### L 100.0500, L500.2500 ####[facility] [address] [place], [address] Chloride [Moles/Vol] 105 mmol/L Normal 98-108 [facility] Comment on above: Order Comment: 215-2 Performed By: #### L 100.0500, L500.2500 ####[facility] [address] [place], [address] CO2 [Moles/Vol] 24.2 mmol/L Normal 21.0-32.0 [facility] Comment on above: Order Comment: 215-2 Performed By: #### L 100.0500, L500.2500 ####[facility] [address] [place], [address] Creatinine [Mass/Vol] 1.46 mg/dL High 0.70-1.20 [facility] Comment on above: Order Comment: 215-2 Performed By: #### L 100.0500, L500.2500 ####[facility] [address] [place], [address] GAP 12 Normal 5-15 [facility] Comment on above: Order Comment: 215-2 Performed By: #### L 100.0500, L500.2500 ####[facility] [address] [place], [address] GFR/1.73 sq M.predicted among non-blacks MDRD (S/P/Bld) [Vol rate/Area] 49 mL/min/{1.73_m2} Low >60 [facility] Comment on above: Order Comment: 215-2 Result Comment: mL/m in/1.73m2 CKD-EPI Creatinine Equation (2020) Performed By: #### L 100.0500, L500.2500 ####[facility] [address] [place], [address] Glucose [Mass/Vol] 116 mg/dL High 70-99 [facility] Comment on above: Order Comment: 215-2 Performed By: #### L 100.0500, L500.2500 ####[facility] [address] [place], [address] Potassium [Moles/Vol] 3.7 mmol/L Normal 3.3-5.1 [facility] Comment on above: Order Comment: 215-2 Performed By: #### L 100.0500, L500.2500 ####[facility] [address] [place], [address] Sodium [Moles/Vol] 141 mmol/L Normal 133-145 [facility] Comment on above: Order Comment: 215-2 Performed By: #### L 100.0500, L500.2500 ####[facility] [address] [place], [address] Urea nitrogen [Mass/Vol] 36 mg/dL High 4-19 [facility] Comment on above: Order Comment: 215-2 Performed By: #### L 100.0500, L500.2500 ####[facility] [address] [place], [address] CBC-Complete Blood Cnt No Di ffon 02-15-2025 Erythrocyte distribution width (RBC) [Ratio] 13.4 % Normal 11.6-14.6 [facility] Comment on above: Order Comment: 215-2 Performed By: #### L 100.0500, L500.2500 ####[facility] [address] [place], [address] Hematocrit (Bld) [Volume fraction] 29.3 % Low 40-54 [facility] Comment on above: Order Comment: 215-2 Performed By: #### L 100.0500, L500.2500 ####[facility] [address] [place], [address] Hemoglobin (Bld) [Mass/Vol] 9.3 g/dL Low 13.0-16. 5 [facility] Comment on above: Order Comment: 215-2 Performed By: #### L 100.0500, L500.2500 ####[facility] [address] [place], [address] MCH (RBC) [Entitic mass] 27.5 pg Normal 27.0-32.0 [facility] Comment on above: Order Comment: 215-2 Performed By: #### L 100.0500, L500.2500 ####[facility] [address] [place], [address] MCHC (RBC) [Mass/Vol] 31.7 g/dL Low 32-36 [facility] Comment on above: Order Comment: 215-2 Performed By: #### L 100.0500, L500.2500 ####[facility] [address] [place], [address] MCV (RBC) [Entitic vol] 86.7 fL Normal 80-94 [facility] Comment on above: Order Comment: 215-2 Performed By: #### L 100.0500, L500.2500 ####[facility] [address] [place], [address] Platelet mean volume (Bld) [Entitic vol] 9.6 fL Normal 6.2-12.0 [facility] Comment on above: Order Comment: 215-2 Performed By: #### L 100.0500, L500.2500 ####[facility] [address] [place], [address] Platelets (Bld) [#/Vol] 361 10*3/uL Normal 150-450 [facility] Comment on above: Order Comment: 215-2 Performed By: #### L 100.0500, L500.2500 ####[facility] [address] [place], [address] RBC (Bld) [#/Vol] 3.38 10*6/uL Low 4.6-6.2 [facility] Comment on above: Order Comment: 215-2 Performed By: #### L 100.0500, L500.2500 ####[facility] [address] [place], [address] RDW SD 42.6 fl Normal 35.1-43.9 [facility] Comment on above: Order Comment: 215-2 Performed By: #### L 100.0500, L500.2500 ####[facility] [address] [place], [address] WBC (Bld) [#/Vol] 11.7 10*3/uL High 4.4-11.0 [facility] Comment on above: Order Comment: 215-2 Performed By: #### L 100.0500, L500.2500 ####[facility] [address] [place], [address] Absolute lymphocyte countOrd ered By: Hugo Cervantes on 02-11-2025 Lymphocytes Auto (Unsp spec) [#/Vol] 1.12 10*3/uL 0.83-4.51 [facility] Anion gap in Serum or Plasma Ordered By: Hugo Cervantes on 02-11-2025 Anion gap [Moles/Vol] 14 mmol/L 5-15 [facility] Automated lymphocyte count a s percentage of total leukocytesOrdered By: Hugo Cervantes on 02-11-2025 Lymphocytes/100 WBC Auto (Unsp spec) 9.9 % Low 19-41 [facility] BUN/creatinine ratioOrdered By: Hugo Cervantes on 02-11-2025 Urea nitrogen/Creatinine [Mass ratio] 15.3 mg/mg - [facility] Basic Metabolic Profile (BMP )on 02-11-2025 BUN/CRE 15.3 RATIO Normal - [facility] Comment on above: Result Comment: NICOL AKHTAR, SPOKE WITH KT Performed By: #### L 100.0100, L500.2500 ####[facility] [address] [place], [address] Calcium [Mass/Vol] 9.0 mg/dL Normal 7.6-11.0 [facility] Comment on above: Result Comment: NICLO AKHTAR, SPOKE WITH KT Performed By: #### L 100.0100, L500.2500 ####[facility] [address] [place], [address] Chloride [Moles/Vol] 109 mmol/L High 98-108 [facility] Comment on above: Result Comment: NICOL AKHTAR, SPOKE WITH KT Performed By: #### L 100.0100, L500.2500 ####[facility] [address] [place], [address] CO2 [Moles/Vol] 22.1 mmol/L Normal 21.0-32.0 [facility] Comment on above: Result Comment: NICOL AKHTAR, SPOKE WITH KT Performed By: #### L 100.0100, L500.2500 ####[facility] [address] [place], [address] Creatinine [Mass/Vol] 1.55 mg/dL High 0.70-1.20 [facility] Comment on above: Result Comment: NICOL AKHTAR, SPOKE WITH KT Performed By: #### L 100.0100, L500.2500 ####[facility] [address] [place], [address] ECRCL 52.57 ml/min Normal 50-250 [facility] Comment on above: Performed By: #### L 100.0100, L500.2500 ####[facility] [address] [place], [address] GAP 14 Normal 5-15 [facility] Comment on above: Result Comment: NICOL AKHTAR, SPOKE WITH KT Performed By: #### L 100.0100, L500.2500 ####[facility] [address] [place], [address] GFR/1.73 sq M.predicted among non-blacks MDRD (S/P/Bld) [Vol rate/Area] 46 mL/min/{1.73_m2} Low >60 [facility] Comment on above: Result Comment: mL/m in/1.73m2 CKD-EPI Creatinine Equation (2020) Performed By: #### L 100.0100, L500.2500 ####[facility] [address] [place], [address] Glucose [Mass/Vol] 155 mg/dL High 70-99 [facility] Comment on above: Result Comment: NICOL AKHTAR, SPOKE WITH KT Performed By: #### L 100.0100, L500.2500 ####[facility] [address] [place], [address] Potassium [Moles/Vol] 3.7 mmol/L Normal 3.3-5.1 [facility] Comment on above: Result Comment: NICOL AKHTAR, SPOKE WITH KT Performed By: #### L 100.0100, L500.2500 ####[facility] [address] [place], [address] Sodium [Moles/Vol] 145 mmol/L Normal 133-145 [facility] Comment on above: Result Comment: NICOL AKHTAR, SPOKE WITH KT Performed By: #### L 100.0100, L500.2500 ####[facility] [address] [place], [address] Urea nitrogen [Mass/Vol] 24 mg/dL High 4-19 [facility] Comment on above: Result Comment: NICOL AKHTAR, SPOKE WITH KT Performed By: #### L 100.0100, L500.2500 ####[facility] [address] [place], [address] Basophil percentageOrdered B y: Hugowallace Cervantes on 02-11-2025 Basophils/100 WBC (Bld) 0.5 % 0-1 [facility] Bedside Glucoseon 02-11-2025 FINGERSTICK GLU 187 mg/dL High 74-106 [facility] Comment on above: Result Comment: JAZ GEMENT OF PATIENT CARE PER NURSING PROTOCOL Performed By: #### L 501.080 ####[facility] [address] [place], [address] FINGERSTICK GLU 220 mg/dL High 74-106 [facility] Comment on above: Result Comment: JAZ GEMENT OF PATIENT CARE PER NURSING PROTOCOL Performed By: #### L 501.080 ####[facility] [address] [place], [address] FINGERSTICK GLU 137 mg/dL High 74-106 [facility] Comment on above: Result Comment: JAZ GEMENT OF PATIENT CARE PER NURSING PROTOCOL Performed By: #### L 501.080 ####[facility] [address] [place], [address] CBC W/Diff, Automatedon 07-3 Absolute Lymph 1.12 X10 3/uL Normal 0.83-4.51 [facility] Comment on above: Performed By: #### L 100.0100 ####[facility] [address] [place], [address] Absolute Neut 8.7 X10 3/uL High 2.0-7.7 [facility] Comment on above: Performed By: #### L 100.0100 ####[facility] [address] [place], [address] Basophils/100 WBC (Bld) 0.5 % Normal 0-1 [facility] Comment on above: Performed By: #### L 100.0100 ####[facility] [address] [place], [address] Eosinophils/100 WBC (Bld) 4.1 % Normal 0-5 [facility] Comment on above: Performed By: #### L 100.0100 ####[facility] [address] [place], [address] Erythrocyte distribution width (RBC) [Ratio] 13.7 % Normal 11.6-14.6 [facility] Comment on above: Performed By: #### L 100.0100 ####[facility] [address] [place], [address] Hematocrit (Bld) [Volume fraction] 31.3 % Low 40-54 [facility] Comment on above: Performed By: #### L 100.0100 ####[facility] [address] [place], [address] Hemoglobin (Bld) [Mass/Vol] 9.9 g/dL Low 13.0-16. 5 [facility] Comment on above: Performed By: #### L 100.0100 ####[facility] [address] [place], [address] IG% 2.100 High 0.0-0.9 [facility] Comment on above: Result Comment: IG% - Immature Granulocytes (promyelocytes, myelocytes andmetamyelocytes) > 1% indicates that a LEFT SHIFT is Present. Performed By: #### L 100.0100 ####[facility] [address] [place], [address] Lymphocytes/100 WBC (Bld) 9.9 % Low 19-41 [facility] Comment on above: Performed By: #### L 100.0100 ####[facility] [address] [place], [address] MCH (RBC) [Entitic mass] 27.6 pg Normal 27.0-32.0 [facility] Comment on above: Performed By: #### L 100.0100 ####[facility] [address] [place], [address] MCHC (RBC) [Mass/Vol] 31.6 g/dL Low 32-36 [facility] Comment on above: Performed By: #### L 100.0100 ####[facility] [address] [place], [address] MCV (RBC) [Entitic vol] 87.2 fL Normal 80-94 [facility] Comment on above: Performed By: #### L 100.0100 ####[facility] [address] [place], [address] Monocytes/100 WBC (Bld) 7.1 % Normal 0-10 [facility] Comment on above: Performed By: #### L 100.0100 ####[facility] [address] [place], [address] Neutrophils/100 WBC (Bld) 76.3 % High 47-70 [facility] Comment on above: Performed By: #### L 100.0100 ####[facility] [address] [place], [address] Nucleated RBC (Bld) [#/Vol] 0 10*3/uL Normal 0-5 [facility] Comment on above: Performed By: #### L 100.0100 ####[facility] [address] [place], [address] Platelet mean volume (Bld) [Entitic vol] 9.1 fL Normal 6.2-12.0 [facility] Comment on above: Performed By: #### L 100.0100 ####[facility] [address] [place], [address] Platelets (Bld) [#/Vol] 308 10*3/uL Normal 150-450 [facility] Comment on above: Performed By: #### L 100.0100 ####[facility] [address] [place], [address] RBC (Bld) [#/Vol] 3.59 10*6/uL Low 4.6-6.2 [facility] Comment on above: Performed By: #### L 100.0100 ####[facility] [address] [place], [address] RDW SD 44.1 fl High 35.1-43.9 [facility] Comment on above: Performed By: #### L 100.0100 ####[facility] [address] [place], [address] WBC (Bld) [#/Vol] 11.3 10*3/uL High 4.4-11.0 [facility] Comment on above: Performed By: #### L 100.0100 ####[facility] [address] [place], [address] Absolute Neut Normal 2.0-7.7 [facility] Comment on above: Result Comment: DUPL ICATE Performed By: #### L 100.0100, L500.2500 ####[facility] [address] [place], [address] HCT Normal 40-54 [facility] Comment on above: Result Comment: DUPL ICATE Performed By: #### L 100.0100, L500.2500 ####[facility] [address] [place], [address] HGB Normal 13.0-16.5 [facility] Comment on above: Result Comment: DUPL ICATE Performed By: #### L 100.0100, L500.2500 ####[facility] [address] [place], [address] MCH Normal 27.0-32.0 [facility] Comment on above: Result Comment: DUPL ICATE Performed By: #### L 100.0100, L500.2500 ####[facility] [address] [place], [address] MCHC Normal 32-36 [facility] Comment on above: Result Comment: DUPL ICATE Performed By: #### L 100.0100, L500.2500 ####[facility] [address] [place], [address] MCV Normal 80-94 [facility] Comment on above: Result Comment: DUPL ICATE Performed By: #### L 100.0100, L500.2500 ####[facility] [address] [place], [address] NEUT% Normal 47-70 [facility] Comment on above: Result Comment: DUPL ICATE Performed By: #### L 100.0100, L500.2500 ####[facility] [address] [place], [address] PLT Normal 150-450 [facility] Comment on above: Result Comment: DUPL ICATE Performed By: #### L 100.0100, L500.2500 ####[facility] [address] [place], [address] RBC Normal 4.6-6.2 [facility] Comment on above: Result Comment: DUPL ICATE Performed By: #### L 100.0100, L500.2500 ####[facility] [address] [place], [address] RDW CV Normal 11.6-14.6 [facility] Comment on above: Result Comment: DUPL ICATE Performed By: #### L 100.0100, L500.2500 ####[facility] [address] [place], [address] RDW SD Normal 35.1-43.9 [facility] Comment on above: Result Comment: DUPL ICATE Performed By: #### L 100.0100, L500.2500 ####[facility] [address] [place], [address] WBC Normal 4.4-11.0 [facility] Comment on above: Result Comment: DUPL ICATE Performed By: #### L 100.0100, L500.2500 ####[facility] [address] [place], [address] Carbon dioxide, total [Moles /volume] in Central venous bloodOrdered By: Hugo Cervantes on 02-11-2025 CO2 [Moles/Vol] 22.1 mmol/L 21.0-32.0 [facility] Chloride assayOrdered By: Shala Cervantes on 02-11-2025 Chloride [Moles/Vol] 109 mmol/L High 98-108 [facility] Electrocardiogram reportOrde red By: Júnior Chandra on 02-11-2025 EKG study [facility] Other Phone: Eosinophil percentageOrdered By: Hugo Cervantes on 02-11-2025 Eosinophils/100 WBC (Bld) 4.1 % 0-5 [facility] Erythrocyte distribution wid th ratioOrdered By: Hugo Cervantes on 02-11-2025 Erythrocyte distribution width (RBC) [Ratio] 13.7 % 11.6-14.6 [facility] Erythrocyte distribution wid th standard deviationOrdered By: Hugo Cervantes on 02-11-2025 Erythrocyte distribution width (RBC) [Ratio] 44.1 fl High 35.1-43.9 [facility] Glomerular filtration rate ( GFR) estimation/1.73 sq m using serum, plasma, or whole bOrdered By: Hugo Cervantes on 02-11-2025 GFR/1.73 sq M.predicted among non-blacks MDRD (S/P/Bld) [Vol rate/Area] 46 mL/min/{1.73_m2} Low >60 [facility]dered By: Hugo Cervantes on 02-11-2025 Glucose [Mass/Vol] 187 mg/dL High 74-106 [facility] Hematocrit Auto (Bld) [Volum e fraction]Ordered By: Hugo Cervantes on 02-11-2025 Hematocrit (Bld) [Volume fraction] 31.3 % Low 40-54 [facility] Hemoglobin measurementOrdere d By: Hugo Cervantes on 02-11-2025 Hemoglobin (Bld) [Mass/Vol] 9.9 g/dL Low 13.0-16. 5 [facility] Immature granulocytes/100 WB C Auto (Bld)Ordered By: Hugo Cervantes on 02-11-2025 Immature granulocytes/100 WBC (Bld) 2.100 % High 0.0-0.9 [facility] MCV (mean corpuscular volume ) determinationOrdered By: Hugo Cervantes on 02-11-2025 MCV (RBC) [Entitic vol] 87.2 fL 80-94 [facility] Mean corpuscular hemoglobin (MCH) determinationOrdered By: Hugo Cervantes on 02-11-2025 MCH (RBC) [Entitic mass] 27.6 pg 27.0-32.0 [facility] Monocyte percentageOrdered B y: Hugo Cervantes on 02-11-2025 Monocytes/100 WBC (Bld) 7.1 % 0-10 [facility] Neutrophil percentageOrdered By: Hugo Cervantes on 02-11-2025 Neutrophils/100 WBC (Bld) 76.3 % High 47-70 [facility] Platelet countOrdered By: Shala Cervantes on 02-11-2025 Platelets (Bld) [#/Vol] 308 10*3/uL 150-450 [facility] Potassium measurement (mass/ volume)Ordered By: Hugo Cervantes on 02-11-2025 Potassium (Unsp spec) [Mass/Vol] 3.7 mmol/L 3.3-5.1 [facility] RBC Auto (Bld) [#/Vol]Ordere d By: Hugo Cervantes on 02-11-2025 RBC (Bld) [#/Vol] 3.59 10*6/uL Low 4.6-6.2 [facility] Serum creatinine measurement (mass/volume)Ordered By: Hugo Cervantes on 02-11-2025 Creatinine [Mass/Vol] 1.55 mg/dL High 0.70-1.20 [facility] Serum glucose measurement (m ass/volume)Ordered By: Hugo Cervantes on 02-11-2025 Glucose [Mass/Vol] 155 mg/dL High 70-99 [facility] Serum or plasma calcium antoine urement (mass/volume)Ordered By: Hugo Cervantes on 02-11-2025 Calcium [Mass/Vol] 9.0 mg/dL 7.6-11.0 [facility] Serum or plasma urea nitroge n measurement (mass/volume)Ordered By: Hugo Cervantes on 02-11-2025 Urea nitrogen [Mass/Vol] 24 mg/dL High 4-19 [facility] Sodium levelOrdered By: Tunde Cervantes on 02-11-2025 Sodium [Moles/Vol] 145 mmol/L 133-145 [facility] White blood cell (WBC) count Ordered By: Hugo Cervantes on 02-11-2025 WBC (Bld) [#/Vol] 11.3 10*3/uL High 4.4-11.0 [facility] 12 Lead EKGon 02-10-2025 12 Lead EKG Normal [facility] ACT Activated Clotting Timeo n 02-10-2025 ACTk CLOT TIME 205 sec High 74-137 [facility] [facility] Comment on above: Performed By: #### L 9100.0100 ####[facility] [address] [place], [address] ACTk CLOT TIME 222 sec High 74-137 [facility] Comment on above: Performed By: #### L 9100.0100 ####[facility] [address] [place], [address] AST(SGOT)on 02-10-2025 AST [Catalytic activity/Vol] 15 U/L Normal <=37 [facility] Comment on above: Performed By: #### L 300.4310, L300.3900, L501.4100 ####[facility] [address] [place], [address] Activated partial thrombopla stin time (aPTT) in platelet poor plasma by coagulation aOrdered By: Aneesh Ac on 02-10-2025 aPTT Coag (PPP) [Time] 33.4 s 24.1-36.2 [facility] Alanine Aminotransferas (SGP T)on 02-10-2025 ALT [Catalytic activity/Vol] 31 U/L Normal <=46 [facility] Comment on above: Performed By: #### L 500.2500, L501.4405, L100.0100 ####[facility] [address] [place], [address] Basic Metabolic Profile (BMP )on 02-10-2025 BUN/CRE 16.2 RATIO Normal 10-20 [facility] Comment on above: Performed By: #### L 500.2500, L501.4405, L100.0100 ####[facility] [address] [place], [address] Calcium [Mass/Vol] 9.1 mg/dL Normal 7.6-11.0 [facility] Comment on above: Performed By: #### L 500.2500, L501.4405, L100.0100 ####[facility] [address] [place], [address] Chloride [Moles/Vol] 108 mmol/L Normal 98-108 [facility] Comment on above: Performed By: #### L 500.2500, L501.4405, L100.0100 ####[facility] [address] [place], [address] CO2 [Moles/Vol] 23.0 mmol/L Normal 21.0-32.0 [facility] Comment on above: Performed By: #### L 500.2500, L501.4405, L100.0100 ####[facility] [address] [place], [address] Creatinine [Mass/Vol] 1.72 mg/dL High 0.70-1.20 [facility] Comment on above: Performed By: #### L 500.2500, L501.4405, L100.0100 ####[facility] [address] [place], [address] ECRCL 47.94 ml/min Low 50-250 [facility] Comment on above: Performed By: #### L 500.2500, L501.4405, L100.0100 ####[facility] [address] [place], [address] GAP 12 Normal 5-15 [facility] Comment on above: Performed By: #### L 500.2500, L501.4405, L100.0100 ####[facility] [address] [place], [address] GFR/1.73 sq M.predicted among non-blacks MDRD (S/P/Bld) [Vol rate/Area] 40 mL/min/{1.73_m2} Low >60 [facility] Comment on above: Result Comment: mL/m in/1.73m2 CKD-EPI Creatinine Equation (2020) Performed By: #### L 500.2500, L501.4405, L100.0100 ####[facility] [address] [place], [address] Glucose [Mass/Vol] 161 mg/dL High 70-99 [facility] Comment on above: Performed By: #### L 500.2500, L501.4405, L100.0100 ####[facility] [address] [place], [address] Potassium [Moles/Vol] 3.7 mmol/L Normal 3.3-5.1 [facility] Comment on above: Performed By: #### L 500.2500, L501.4405, L100.0100 ####[facility] [address] [place], [address] Sodium [Moles/Vol] 142 mmol/L Normal 133-145 [facility] Comment on above: Performed By: #### L 500.2500, L501.4405, L100.0100 ####[facility] [address] [place], [address] Urea nitrogen [Mass/Vol] 28 mg/dL High 4-19 [facility] Comment on above: Performed By: #### L 500.2500, L501.4405, L100.0100 ####[facility] [address] [place], [address] Bedside Glucoseon 02-10-2025 FINGERSTICK GLU 135 mg/dL High 74-106 [facility] Comment on above: Result Comment: JAZ GEMENT OF PATIENT CARE PER NURSING PROTOCOL Performed By: #### L 501.080 ####[facility] [address] [place], [address] FINGERSTICK GLU 132 mg/dL High 74-106 [facility] Comment on above: Result Comment: JAZ GEMENT OF PATIENT CARE PER NURSING PROTOCOL Performed By: #### L 501.080 ####[facility] [address] [place], [address] FINGERSTICK GLU 156 mg/dL High 74-106 [facility] Comment on above: Result Comment: JAZ GEMENT OF PATIENT CARE PER NURSING PROTOCOL Performed By: #### L 501.080 ####[facility] [address] [place], [address] FINGERSTICK GLU 156 mg/dL High 74-106 [facility] Comment on above: Result Comment: JAZ GEMENT OF PATIENT CARE PER NURSING PROTOCOL Performed By: #### L 501.080 ####[facility] [address] [place], [address] FINGERSTICK GLU 153 mg/dL High 74-106 [facility] Comment on above: Result Comment: JAZ GEMENT OF PATIENT CARE PER NURSING PROTOCOL Performed By: #### L 501.080 ####[facility] [address] [place], [address] CBC W/Diff, Automatedon 07-3 0-2025 Absolute Lymph 1.25 X10 3/uL Normal 0.83-4.51 [facility] Comment on above: Performed By: #### L 500.2500, L501.4405, L100.0100 ####[facility] [address] [place], [address] Absolute Neut 8.3 X10 3/uL High 2.0-7.7 [facility] Comment on above: Performed By: #### L 500.2500, L501.4405, L100.0100 ####[facility] [address] [place], [address] Basophils/100 WBC (Bld) 0.4 % Normal 0-1 [facility] Comment on above: Performed By: #### L 500.2500, L501.4405, L100.0100 ####[facility] [address] [place], [address] Eosinophils/100 WBC (Bld) 4.7 % Normal 0-5 [facility] Comment on above: Performed By: #### L 500.2500, L501.4405, L100.0100 ####[facility] [address] [place], [address] Erythrocyte distribution width (RBC) [Ratio] 13.7 % Normal 11.6-14.6 [facility] Comment on above: Performed By: #### L 500.2500, L501.4405, L100.0100 ####[facility] [address] [place], [address] Hematocrit (Bld) [Volume fraction] 30.5 % Low 40-54 [facility] Comment on above: Performed By: #### L 500.2500, L501.4405, L100.0100 ####[facility] [address] [place], [address] Hemoglobin (Bld) [Mass/Vol] 9.7 g/dL Low 13.0-16. 5 [facility] Comment on above: Performed By: #### L 500.2500, L501.4405, L100.0100 ####[facility] [address] [place], [address] IG% 2.300 High 0.0-0.9 [facility] Comment on above: Result Comment: IG% - Immature Granulocytes (promyelocytes, myelocytes andmetamyelocytes) > 1% indicates that a LEFT SHIFT is Present. Performed By: #### L 500.2500, L501.4405, L100.0100 ####[facility] [address] [place], [address] Lymphocytes/100 WBC (Bld) 11.0 % Low 19-41 [facility] Comment on above: Performed By: #### L 500.2500, L501.4405, L100.0100 ####[facility] [address] [place], [address] MCH (RBC) [Entitic mass] 27.6 pg Normal 27.0-32.0 [facility] Comment on above: Performed By: #### L 500.2500, L501.4405, L100.0100 ####[facility] [address] [place], [address] MCHC (RBC) [Mass/Vol] 31.8 g/dL Low 32-36 [facility] Comment on above: Performed By: #### L 500.2500, L501.4405, L100.0100 ####[facility] [address] [place], [address] MCV (RBC) [Entitic vol] 86.9 fL Normal 80-94 [facility] Comment on above: Performed By: #### L 500.2500, L501.4405, L100.0100 ####[facility] [address] [place], [address] Monocytes/100 WBC (Bld) 8.5 % Normal 0-10 [facility] Comment on above: Performed By: #### L 500.2500, L501.4405, L100.0100 ####[facility] [address] [place], [address] Neutrophils/100 WBC (Bld) 73.1 % High 47-70 [facility] Comment on above: Performed By: #### L 500.2500, L501.4405, L100.0100 ####[facility] [address] [place], [address] Nucleated RBC (Bld) [#/Vol] 0 10*3/uL Normal 0-5 [facility] Comment on above: Performed By: #### L 500.2500, L501.4405, L100.0100 ####[facility] [address] [place], [address] Platelet mean volume (Bld) [Entitic vol] 9.1 fL Normal 6.2-12.0 [facility] Comment on above: Performed By: #### L 500.2500, L501.4405, L100.0100 ####[facility] [address] [place], [address] Platelets (Bld) [#/Vol] 314 10*3/uL Normal 150-450 [facility] Comment on above: Performed By: #### L 500.2500, L501.4405, L100.0100 ####[facility] [address] [place], [address] RBC (Bld) [#/Vol] 3.51 10*6/uL Low 4.6-6.2 [facility] Comment on above: Performed By: #### L 500.2500, L501.4405, L100.0100 ####[facility] [address] [place], [address] RDW SD 43.9 fl Normal 35.1-43.9 [facility] Comment on above: Performed By: #### L 500.2500, L501.4405, L100.0100 ####[facility] [address] [place], [address] WBC (Bld) [#/Vol] 11.4 10*3/uL High 4.4-11.0 [facility] Comment on above: Performed By: #### L 500.2500, L501.4405, L100.0100 ####[facility] [address] [place], [address] Culture, Anaerobic [facility] CUAN UNK UNK Bone 5th left Metatarsal toe No anaerobic bacteria isolated. Normal [facility] Comment on above: Performed By: #### M 100.4001, M100.3000, M1.2000 ####[facility] [address] [place], [address] CUAN UNK UNK Clearance Fragment left 5th metatarsal toe No growth in 5 days. Normal [facility] Comment on above: Performed By: #### M 100.2000, M100.3000, M100.4001 ####[facility] [address] [place], [address] No Panel InformationOrdered By: Aneesh Ac on 02-10-2025 15 U/L <38 [facility] Operative Reporton Operative Report Normal [facility] Partial Thromboplast Timeon 02-10-2025 aPTT Coag (Bld) [Time] 33.4 s Normal 24.1-36.2 [facility] Comment on above: Performed By: #### L 300.4310, L300.3900, L501.4100 ####[facility] [address] [place], [address] Prothrombin Time w/INRon INR Coag (PPP) [Relative time] 1.3 {INR} Normal [facility] Comment on above: Performed By: #### L 300.4310, L300.3900, L501.4100 ####[facility] [address] [place], [address] PT Coag (PPP) [Time] 16.2 s High 11.7-14.9 [facility] Comment on above: Performed By: #### L 300.4310, L300.3900, L501.4100 ####[facility] [address] [place], [address] Prothrombin timeOrdered By: Aneesh Ac on 02-10-2025 PT Coag (PPP) [Time] 16.2 s High 11.7-14.9 [facility] Serum or plasma alanine davis otransferase (ALT) measurementOrdered By: Aneesh Ac on 02-10-2025 ALT [Catalytic activity/Vol] 31 U/L <47 [facility] Surgical pathology reportOrd ered By: Umm Garcia on 02-10-2025 Surgical pathology study [facility] Trough vancomycin levelOrder ed By: Hugo Cervantes on 02-10-2025 Vancomycin trough [Mass/Vol] 16.6 ug/mL High 5.0-15.0 [facility] Vancomycin, Trough Levelon 0 02-10-2025 VANCO, TROUGH 16.6 ug/mL High 5.0-15.0 [facility] Comment on above: Order Comment: Comme nts: Trough to be drawn 30 mins prior to scheduled [id number] Result Comment: Jalen mmended goal trough ranges are generally 10-15 mcg/mlfor less severe/complicated infections such as cellulitisor UTI and 15-20 mcg/ml for more severe/complicatedinfections such as bacteremia/sepsis, osteomyelitis,pneumonia or meningitis. Goal trough ranges should takeinto account indication, patient-specific factors andorganism KLAUS.VANCOMYCIN STANDARED DRUG THERAPY TROUGH LEVEL: 5.0 - 15.0 mg/LVANCOMYCIN HIGH INTENSITY THERAPY TROUGH LEVEL: 15.0 - 20.0 mg/LHigh Intensity therapy recommended for serious lifethreatening infections include:- Ildyjslirq-Nzgelkpxqrox-Dbnsdfkud (Ventilator/Healtcare Associated)-SepsisPLEASE CONTACT PHARMACY SERVICES (#4596) FOR INTERPRETATIONOF RESULTS. Performed By: #### L 501.8820 ####[facility] [address] [place], [address] Basic Metabolic Profile (BMP )on 02-09-2025 BUN/CRE 14.2 RATIO Normal - [facility] Comment on above: Performed By: #### L 100.0100, L500.2500 ####[facility] [address] [place], [address] Calcium [Mass/Vol] 9.0 mg/dL Normal 7.6-11.0 [facility] Comment on above: Performed By: #### L 100.0100, L500.2500 ####[facility] [address] [place], [address] Chloride [Moles/Vol] 110 mmol/L High 98-108 [facility] Comment on above: Performed By: #### L 100.0100, L500.2500 ####[facility] [address] [place], [address] CO2 [Moles/Vol] 21.6 mmol/L Normal 21.0-32.0 [facility] Comment on above: Performed By: #### L 100.0100, L500.2500 ####[facility] [address] [place], [address] Creatinine [Mass/Vol] 1.70 mg/dL High 0.70-1.20 [facility] Comment on above: Performed By: #### L 100.0100, L500.2500 ####[facility] [address] [place], [address] ECRCL 61.27 ml/min Normal 50-250 [facility] Comment on above: Performed By: #### L 100.0100, L500.2500 ####[facility] [address] [place], [address] GAP 12 Normal 5-15 [facility] Comment on above: Performed By: #### L 100.0100, L500.2500 ####[facility] [address] [place], [address] GFR/1.73 sq M.predicted among non-blacks MDRD (S/P/Bld) [Vol rate/Area] 41 mL/min/{1.73_m2} Low >60 [facility] Comment on above: Result Comment: mL/m in/1.73m2 CKD-EPI Creatinine Equation (2020) Performed By: #### L 100.0100, L500.2500 ####[facility] [address] [place], [address] Glucose [Mass/Vol] 142 mg/dL High 70-99 [facility] Comment on above: Performed By: #### L 100.0100, L500.2500 ####[facility] [address] [place], [address] Potassium [Moles/Vol] 4.1 mmol/L Normal 3.3-5.1 [facility] Comment on above: Result Comment: Hemo lysis present, Results??could be affected.?? Performed By: #### L 100.0100, L500.2500 ####[facility] [address] [place], [address] Sodium [Moles/Vol] 143 mmol/L Normal 133-145 [facility] Comment on above: Performed By: #### L 100.0100, L500.2500 ####[facility] [address] [place], [address] Urea nitrogen [Mass/Vol] 24 mg/dL High 4-19 [facility] Comment on above: Performed By: #### L 100.0100, L500.2500 ####[facility] [address] [place], [address] Bedside Glucoseon 02-09-2025 FINGERSTICK GLU 140 mg/dL High 74-106 [facility] Comment on above: Result Comment: JAZ GEMENT OF PATIENT CARE PER NURSING PROTOCOL Performed By: #### L 501.080 ####[facility] [address] [place], [address] FINGERSTICK GLU 145 mg/dL High 74-106 [facility] Comment on above: Result Comment: JAZ GEMENT OF PATIENT CARE PER NURSING PROTOCOL Performed By: #### L 501.080 ####[facility] [address] [place], [address] FINGERSTICK GLU 127 mg/dL High 74-106 [facility] Comment on above: Result Comment: JAZ GEMENT OF PATIENT CARE PER NURSING PROTOCOL Performed By: #### L 501.080 ####[facility] [address] [place], [address] Blood polychromasia detectio n by light microscopyOrdered By: Hugo Cervantes on 02-09-2025 Polychromasia LM Ql (Bld) 1+ [facility] CBC W/Diff, Automatedon 07-2 POLYCHROMASIA 1+ Normal [facility] Comment on above: Performed By: #### L 100.0100, L500.2500 ####[facility] [address] [place], [address] Wound Cultureon 02-09-2025 WC Normal [facility] Comment on above: Performed By: #### M 100.4001, M100.3000, M100.2000 ####[facility] [address] [place], [address] Assessment of wrist artery p atency prior to arterial punctureOrdered By: Hugo Cervantes on 02-08-2025 Arterial patency Wrist artery --pre arterial puncture Positive [facility] Basic Metabolic Profile (BMP )on 02-08-2025 BUN/CRE 19.1 RATIO Normal 10-20 [facility] Comment on above: Performed By: #### L 500.2500, L100.0100 ####[facility] [address] [place], [address] Calcium [Mass/Vol] 8.9 mg/dL Normal 7.6-11.0 [facility] Comment on above: Performed By: #### L 500.2500, L100.0100 ####[facility] [address] [place], [address] Chloride [Moles/Vol] 110 mmol/L High 98-108 [facility] Comment on above: Performed By: #### L 500.2500, L100.0100 ####[facility] [address] [place], [address] CO2 [Moles/Vol] 24.2 mmol/L Normal 21.0-32.0 [facility] Comment on above: Performed By: #### L 500.2500, L100.0100 ####[facility] [address] [place], [address] Creatinine [Mass/Vol] 1.71 mg/dL High 0.70-1.20 [facility] Comment on above: Performed By: #### L 500.2500, L100.0100 ####[facility] [address] [place], [address] ECRCL 48.63 ml/min Low 50-250 [facility] Comment on above: Performed By: #### L 500.2500, L100.0100 ####[facility] [address] [place], [address] GAP 9 Normal 5-15 [facility] Comment on above: Performed By: #### L 500.2500, L100.0100 ####[facility] [address] [place], [address] GFR/1.73 sq M.predicted among non-blacks MDRD (S/P/Bld) [Vol rate/Area] 41 mL/min/{1.73_m2} Low >60 [facility] Comment on above: Result Comment: mL/m in/1.73m2 CKD-EPI Creatinine Equation (2020) Performed By: #### L 500.2500, L100.0100 ####[facility] [address] [place], [address] Glucose [Mass/Vol] 156 mg/dL High 70-99 [facility] Comment on above: Performed By: #### L 500.2500, L100.0100 ####[facility] [address] [place], [address] Potassium [Moles/Vol] 3.8 mmol/L Normal 3.3-5.1 [facility] Comment on above: Performed By: #### L 500.2500, L100.0100 ####[facility] [address] [place], [address] Sodium [Moles/Vol] 143 mmol/L Normal 133-145 [facility] Comment on above: Performed By: #### L 500.2500, L100.0100 ####[facility] [address] [place], [address] Urea nitrogen [Mass/Vol] 33 mg/dL High 4-19 [facility] Comment on above: Performed By: #### L 500.2500, L100.0100 ####[facility] [address] [place], [address] Bedside Glucoseon 02-08-2025 FINGERSTICK GLU 135 mg/dL High 74-106 [facility] Comment on above: Result Comment: JAZ GEMENT OF PATIENT CARE PER NURSING PROTOCOL Performed By: #### L 501.080 ####[facility] [address] [place], [address] FINGERSTICK GLU 141 mg/dL High 74-106 [facility] Comment on above: Result Comment: JAZ GEMENT OF PATIENT CARE PER NURSING PROTOCOL Performed By: #### L 501.080 ####[facility] [facility] [address] [place], [address] FINGERSTICK GLU 145 mg/dL High 74-106 [facility] Comment on above: Result Comment: JAZ GEMENT OF PATIENT CARE PER NURSING PROTOCOL Performed By: #### L 501.080 ####[facility] [address] [place], [address] [facility] EU[facility] Positive Normal [facility] Comment on above: Performed By: #### L 9000.0800 ####[facility] [address] [place], [address] Base excess Calc (Bld) [Moles/Vol] 5 mmol/L High -2 to +2 [facility] Comment on above: Performed By: #### L 9000.0800 ####[facility] [address] [place], [address] Blood Gas Type ART Normal [facility] Comment on above: Performed By: #### L 9000.0800 ####[facility] [address] [place], [address] CO2 [Moles/Vol] 30 mmol/L Normal [facility] Comment on above: Performed By: #### L 9000.0800 ####[facility] [address] [place], [address] FI02 2.0 Normal [facility] Comment on above: Performed By: #### L 9000.0800 ####[facility] [address] [place], [address] HCO3 (Bld) [Moles/Vol] 28.8 mmol/L High 22-26 [facility] Comment on above: Performed By: #### L 9000.0800 ####[facility] [address] [place], [address] Mode Not entered Normal [facility] Comment on above: Performed By: #### L 9000.0800 ####[facility] [address] [place], [address] O2 Delivery Dev Cannula Normal [facility] Comment on above: Performed By: #### L 9000.0800 ####[facility] [address] [place], [address] pCO2 42.1 mmHg Normal 35-45 [facility] Comment on above: Performed By: #### L 9000.0800 ####[facility] [address] [place], [address] pH (Bld) 7.44 [pH] Normal 7.35-7.45 [facility] Comment on above: Performed By: #### L 9000.0800 ####[facility] [address] [place], [address] PO2 82 mmHG Normal 75-100 [facility] Comment on above: Performed By: #### L 9000.0800 ####[facility] [address] [place], [address] SITE R Radial Normal [facility] Comment on above: Performed By: #### L 9000.0800 ####[facility] [address] [place], [address] SO2 96 Normal 95-99 [facility] Comment on above: Performed By: #### L 9000.0800 ####[facility] [address] [place], [address] Blood base excess determinat ionOrdered By: Hugo Cervantes on 02-08-2025 Base excess Calc (BldV) [Moles/Vol] 5 mmol/L High -2-2 [facility] Blood bicarbonate measuremen tOrdered By: Hugo Cervantes on 02-08-2025 HCO3 (Bld) [Moles/Vol] 28.8 mmol/L High 22-26 [facility] CBC W/Diff, Automatedon 01-13 Absolute Lymph 1.25 X10 3/uL Normal 0.83-4.51 [facility] Comment on above: Performed By: #### L 500.2500, L100.0100 ####[facility] [address] [place], [address] Absolute Neut 7.9 X10 3/uL High 2.0-7.7 [facility] Comment on above: Performed By: #### L 500.2500, L100.0100 ####[facility] [address] [place], [address] Basophils/100 WBC (Bld) 0.3 % Normal 0-1 [facility] Comment on above: Performed By: #### L 500.2500, L100.0100 ####[facility] [address] [place], [address] Eosinophils/100 WBC (Bld) 4.6 % Normal 0-5 [facility] Comment on above: Performed By: #### L 500.2500, L100.0100 ####[facility] [address] [place], [address] Erythrocyte distribution width (RBC) [Ratio] 13.7 % Normal 11.6-14.6 [facility] Comment on above: Performed By: #### L 500.2500, L100.0100 ####[facility] [address] [place], [address] Hematocrit (Bld) [Volume fraction] 29.3 % Low 40-54 [facility] Comment on above: Performed By: #### L 500.2500, L100.0100 ####[facility] [address] [place], [address] Hemoglobin (Bld) [Mass/Vol] 9.6 g/dL Low 13.0-16. 5 [facility] Comment on above: Performed By: #### L 500.2500, L100.0100 ####[facility] [address] [place], [address] IG% 1.400 High 0.0-0.9 [facility] Comment on above: Result Comment: IG% - Immature Granulocytes (promyelocytes, myelocytes andmetamyelocytes) > 1% indicates that a LEFT SHIFT is Present. Performed By: #### L 500.2500, L100.0100 ####[facility] [address] [place], [address] Lymphocytes/100 WBC (Bld) 11.5 % Low 19-41 [facility] Comment on above: Performed By: #### L 500.2500, L100.0100 ####[facility] [address] [place], [address] MCH (RBC) [Entitic mass] 27.8 pg Normal 27.0-32.0 [facility] Comment on above: Performed By: #### L 500.2500, L100.0100 ####[facility] [address] [place], [address] MCHC (RBC) [Mass/Vol] 32.8 g/dL Normal 32-36 [facility] Comment on above: Performed By: #### L 500.2500, L100.0100 ####[facility] [address] [place], [address] MCV (RBC) [Entitic vol] 84.9 fL Normal 80-94 [facility] Comment on above: Performed By: #### L 500.2500, L100.0100 ####[facility] [address] [place], [address] Monocytes/100 WBC (Bld) 9.5 % Normal 0-10 [facility] Comment on above: Performed By: #### L 500.2500, L100.0100 ####[facility] [address] [place], [address] Neutrophils/100 WBC (Bld) 72.7 % High 47-70 [facility] Comment on above: Performed By: #### L 500.2500, L100.0100 ####[facility] [address] [place], [address] Nucleated RBC (Bld) [#/Vol] 0 10*3/uL Normal 0-5 [facility] Comment on above: Performed By: #### L 500.2500, L100.0100 ####[facility] [address] [place], [address] Platelet mean volume (Bld) [Entitic vol] 8.8 fL Normal 6.2-12.0 [facility] Comment on above: Performed By: #### L 500.2500, L100.0100 ####[facility] [address] [place], [address] Platelets (Bld) [#/Vol] 263 10*3/uL Normal 150-450 [facility] Comment on above: Performed By: #### L 500.2500, L100.0100 ####[facility] [address] [place], [address] RBC (Bld) [#/Vol] 3.45 10*6/uL Low 4.6-6.2 [facility] Comment on above: Performed By: #### L 500.2500, L100.0100 ####[facility] [address] [place], [address] RDW SD 42.7 fl Normal 35.1-43.9 [facility] Comment on above: Performed By: #### L 500.2500, L100.0100 ####[facility] [address] [place], [address] WBC (Bld) [#/Vol] 10.9 10*3/uL Normal 4.4-11.0 [facility] Comment on above: Performed By: #### L 500.2500, L100.0100 ####[facility] [address] [place], [address] Consultation - Infectious Dx on 02-08-2025 Consultation - Infectious Dx Normal [facility] Culture, Blood (WB)on 2024 CUB Blood cultures x2, from two different sites No growth in 5 days. Normal [facility] Comment on above: Performed By: #### L 300.4310, L503.6005, M200.1000, L100.0100, L300.3900, L500.4050 ####[facility] [address] [place], [address] Measurement, pHOrdered By: Breonna Cervantes on 02-08-2025 pH (Unsp spec) 7.44 [pH] 7.35-7.45 [facility] No Panel InformationOrdered By: Hugo Cervantes on 02-08-2025 ART [facility] R Radial [facility] Not entered [facility] Cannula [facility] Total carbon dioxide measure mentOrdered By: Hugo Cervantes on 02-08-2025 CO2 [Moles/Vol] 30 mmol/L [facility] Vancomycin, Trough Levelon 0 02-08-2025 VANCO, TROUGH 20.6 ug/mL High 5.0-15.0 [facility] Comment on above: Order Comment: Comme nts: DRAW 30 MIN PRIOR TO [id number] Result Comment: Jalen mmended goal trough ranges are generally 10-15 mcg/mlfor less severe/complicated infections such as cellulitisor UTI and 15-20 mcg/ml for more severe/complicatedinfections such as bacteremia/sepsis, osteomyelitis,pneumonia or meningitis. Goal trough ranges should takeinto account indication, patient-specific factors andorganism KLAUS.VANCOMYCIN STANDARED DRUG THERAPY TROUGH LEVEL: 5.0 - 15.0 mg/LVANCOMYCIN HIGH INTENSITY THERAPY TROUGH LEVEL: 15.0 - 20.0 mg/LHigh Intensity therapy recommended for serious lifethreatening infections include:- Xzquegcpsz-Nvysmjkpmfqs-Fwnjpyxnr (Ventilator/Healtcare Associated)-SepsisPLEASE CONTACT PHARMACY SERVICES (#6705) FOR INTERPRETATIONOF RESULTS. Performed By: #### L 501.8828 ####[facility] [address] [place], [address] Basic Metabolic Profile (BMP )on 02-07-2025 BUN/CRE 22.7 RATIO High 10-20 [facility] Comment on above: Performed By: #### L 500.2500, L100.0100 ####[facility] [address] [place], [address] Calcium [Mass/Vol] 8.7 mg/dL Normal 7.6-11.0 [facility] Comment on above: Performed By: #### L 500.2500, L100.0100 ####[facility] [address] [place], [address] Chloride [Moles/Vol] 109 mmol/L High 98-108 [facility] Comment on above: Performed By: #### L 500.2500, L100.0100 ####[facility] [address] [place], [address] CO2 [Moles/Vol] 22.6 mmol/L Normal 21.0-32.0 [facility] Comment on above: Performed By: #### L 500.2500, L100.0100 ####[facility] [address] [place], [address] Creatinine [Mass/Vol] 1.75 mg/dL High 0.70-1.20 [facility] Comment on above: Performed By: #### L 500.2500, L100.0100 ####[facility] [address] [place], [address] ECRCL 47.38 ml/min Low 50-250 [facility] Comment on above: Performed By: #### L 500.2500, L100.0100 ####[facility] [address] [place], [address] GAP 10 Normal 5-15 [facility] Comment on above: Performed By: #### L 500.2500, L100.0100 ####[facility] [address] [place], [address] GFR/1.73 sq M.predicted among non-blacks MDRD (S/P/Bld) [Vol rate/Area] 40 mL/min/{1.73_m2} Low >60 [facility] Comment on above: Result Comment: mL/m in/1.73m2 CKD-EPI Creatinine Equation (2020) Performed By: #### L 500.2500, L100.0100 ####[facility] [address] [place], [address] Glucose [Mass/Vol] 150 mg/dL High 70-99 [facility] Comment on above: Performed By: #### L 500.2500, L100.0100 ####[facility] [address] [place], [address] Potassium [Moles/Vol] 3.8 mmol/L Normal 3.3-5.1 [facility] Comment on above: Performed By: #### L 500.2500, L100.0100 ####[facility] [address] [place], [address] Sodium [Moles/Vol] 142 mmol/L Normal 133-145 [facility] Comment on above: Performed By: #### L 500.2500, L100.0100 ####[facility] [address] [place], [address] Urea nitrogen [Mass/Vol] 40 mg/dL High 4-19 [facility] Comment on above: Performed By: #### L 500.2500, L100.0100 ####[facility] [address] [place], [address] Bedside Glucoseon 02-07-2025 FINGERSTICK GLU 174 mg/dL High 74-106 [facility] Comment on above: Result Comment: JAZ GEMENT OF PATIENT CARE PER NURSING PROTOCOL Performed By: #### L 501.080 ####[facility] [address] [place], [address] FINGERSTICK GLU 143 mg/dL High 74-106 [facility] Comment on above: Result Comment: JAZ GEMENT OF PATIENT CARE PER NURSING PROTOCOL Performed By: #### L 501.080 ####[facility] [address] [place], [address] FINGERSTICK GLU 156 mg/dL High 74-106 [facility] Comment on above: Result Comment: JAZ GEMENT OF PATIENT CARE PER NURSING PROTOCOL Performed By: #### L 501.080 ####[facility] [address] [place], [address] FINGERSTICK GLU 146 mg/dL High 74-106 [facility] Comment on above: Result Comment: JAZ BRANDON OF PATIENT CARE PER NURSING PROTOCOL Performed By: #### L 501.080 ####[facility] [address] [place], [address] CBC W/Diff, Automatedon 07-2 Absolute Lymph 1.37 X10 3/uL Normal 0.83-4.51 [facility] Comment on above: Performed By: #### L 500.2500, L100.0100 ####[facility] [address] [place], [address] Absolute Neut 6.1 X10 3/uL Normal 2.0-7.7 [facility] Comment on above: Performed By: #### L 500.2500, L100.0100 ####[facility] [address] [place], [address] Basophils/100 WBC (Bld) 0.7 % Normal 0-1 [facility] Comment on above: Performed By: #### L 500.2500, L100.0100 ####[facility] [address] [place], [address] Eosinophils/100 WBC (Bld) 6.8 % High 0-5 [facility] Comment on above: Performed By: #### L 500.2500, L100.0100 ####[facility] [address] [place], [address] Erythrocyte distribution width (RBC) [Ratio] 13.6 % Normal 11.6-14.6 [facility] Comment on above: Performed By: #### L 500.2500, L100.0100 ####[facility] [address] [place], [address] Hematocrit (Bld) [Volume fraction] 29.6 % Low 40-54 [facility] Comment on above: Performed By: #### L 500.2500, L100.0100 ####[facility] [address] [place], [address] Hemoglobin (Bld) [Mass/Vol] 9.5 g/dL Low 13.0-16. 5 [facility] Comment on above: Performed By: #### L 500.2500, L100.0100 ####[facility] [address] [place], [address] IG% 1.900 High 0.0-0.9 [facility] Comment on above: Result Comment: IG% - Immature Granulocytes (promyelocytes, myelocytes andmetamyelocytes) > 1% indicates that a LEFT SHIFT is Present. Performed By: #### L 500.2500, L100.0100 ####[facility] [address] [place], [address] Lymphocytes/100 WBC (Bld) 15.0 % Low 19-41 [facility] Comment on above: Performed By: #### L 500.2500, L100.0100 ####[facility] [address] [place], [address] MCH (RBC) [Entitic mass] 27.5 pg Normal 27.0-32.0 [facility] Comment on above: Performed By: #### L 500.2500, L100.0100 ####[facility] [address] [place], [address] MCHC (RBC) [Mass/Vol] 32.1 g/dL Normal 32-36 [facility] Comment on above: Performed By: #### L 500.2500, L100.0100 ####[facility] [address] [place], [address] MCV (RBC) [Entitic vol] 85.5 fL Normal 80-94 [facility] Comment on above: Performed By: #### L 500.2500, L100.0100 ####[facility] [address] [place], [address] Monocytes/100 WBC (Bld) 9.5 % Normal 0-10 [facility] Comment on above: Performed By: #### L 500.2500, L100.0100 ####[facility] [address] [place], [address] Neutrophils/100 WBC (Bld) 66.1 % Normal 47-70 [facility] Comment on above: Performed By: #### L 500.2500, L100.0100 ####[facility] [address] [place], [address] Nucleated RBC (Bld) [#/Vol] 0 10*3/uL Normal 0-5 [facility] Comment on above: Performed By: #### L 500.2500, L100.0100 ####[facility] [address] [place], [address] Platelet mean volume (Bld) [Entitic vol] 9.0 fL Normal 6.2-12.0 [facility] Comment on above: Performed By: #### L 500.2500, L100.0100 ####[facility] [address] [place], [address] Platelets (Bld) [#/Vol] 258 10*3/uL Normal 150-450 [facility] Comment on above: Performed By: #### L 500.2500, L100.0100 ####[facility] [address] [place], [address] RBC (Bld) [#/Vol] 3.46 10*6/uL Low 4.6-6.2 [facility] Comment on above: Performed By: #### L 500.2500, L100.0100 ####[facility] [address] [place], [address] RDW SD 42.4 fl Normal 35.1-43.9 [facility] Comment on above: Performed By: #### L 500.2500, L100.0100 ####[facility] [address] [place], [address] WBC (Bld) [#/Vol] 9.2 10*3/uL Normal 4.4-11.0 [facility] Comment on above: Performed By: #### L 500.2500, L100.0100 ####[facility] [address] [place], [address] Culture, Anaerobic Any Sourc ace 02-07-2025 CUAN ONLY AEROBIC SWAB WA S SENT DRUGS WITH ANAROBES MAYBE INHIBITED. No anaerobic bacteria isolated. [facility] Comment on above: Performed By: #### M 100.4001, L8200.1075, M100.3000, M1 ####[facility] [address] [place], [address] Serum or plasma vancomycin m easurement (mass/volume)Ordered By: Hugo Cervantes on 02-07-2025 Vancomycin [Mass/Vol] 17.6 ug/mL High 0.0-15.0 [facility] Vancomycin, Random Levelon 0 02-07-2025 VANCO, RANDOM 17.6 ug/mL High 0.0-15.0 [facility] Comment on above: Result Comment: VANC OMYCIN STANDARD DRUG THERAPY: CRITICAL VALUE IS > 15.0 mg/LVANCOMYCIN HIGH INTENSITY THERAPY: CRITICAL VALUE IS > 20.0 mg/LPLEASE CONTACT PHARMACY SERVICES (#7786) FOR INTERPRETATIONOF RESULTS. THIS RESULT DOES NOT REPRESENT A PEAK OR TROUGHLEVEL FOR THIS DRUG. Performed By: #### L 501.8850 ####[facility] [address] [place], [address] Wound Cultureon 02-07-2025 [facility] Comment on above: Performed By: #### M 100.4001, L8200.1075, M100.3000, M1.1999 ####[facility] [address] [place], [address] Basic Metabolic Profile (BMP )on 02-06-2025 BUN/CRE 22.0 RATIO High 10-20 [facility] Comment on above: Performed By: #### L 100.0100, L500.2500 ####[facility] [address] [place], [address] Calcium [Mass/Vol] 8.8 mg/dL Normal 7.6-11.0 [facility] Comment on above: Performed By: #### L 100.0100, L500.2500 ####[facility] [address] [place], [address] Chloride [Moles/Vol] 109 mmol/L High 98-108 [facility] Comment on above: Performed By: #### L 100.0100, L500.2500 ####[facility] [address] [place], [address] CO2 [Moles/Vol] 21.2 mmol/L Normal 21.0-32.0 [facility] Comment on above: Performed By: #### L 100.0100, L500.2500 ####[facility] [address] [place], [address] Creatinine [Mass/Vol] 1.83 mg/dL High 0.70-1.20 [facility] Comment on above: Performed By: #### L 100.0100, L500.2500 ####[facility] [address] [place], [address] ECRCL 45.10 ml/min Low 50-250 [facility] Comment on above: Performed By: #### L 100.0100, L500.2500 ####[facility] [address] [place], [address] GAP 11 Normal 5-15 [facility] Comment on above: Performed By: #### L 100.0100, L500.2500 ####[facility] [address] [place], [address] GFR/1.73 sq M.predicted among non-blacks MDRD (S/P/Bld) [Vol rate/Area] 38 mL/min/{1.73_m2} Low >60 [facility] Comment on above: Result Comment: mL/m in/1.73m2 CKD-EPI Creatinine Equation (2020) Performed By: #### L 100.0100, L500.2500 ####[facility] [address] [place], [address] Glucose [Mass/Vol] 150 mg/dL High 70-99 [facility] Comment on above: Performed By: #### L 100.0100, L500.2500 ####[facility] [address] [place], [address] Potassium [Moles/Vol] 3.9 mmol/L Normal 3.3-5.1 [facility] Comment on above: Performed By: #### L 100.0100, L500.2500 ####[facility] [address] [place], [address] Sodium [Moles/Vol] 141 mmol/L Normal 133-145 [facility] Comment on above: Performed By: #### L 100.0100, L500.2500 ####[facility] [address] [place], [address] Urea nitrogen [Mass/Vol] 40 mg/dL High 4-19 [facility] Comment on above: Performed By: #### L 100.0100, L500.2500 ####[facility] [address] [place], [address] Bedside Glucoseon 02-06-2025 FINGERSTICK GLU 169 mg/dL High 74-106 [facility] Comment on above: Result Comment: JAZ BRANDON OF PATIENT CARE PER NURSING PROTOCOL Performed By: #### L 501.080 ####[facility] [address] [place], [address] FINGERSTICK GLU 140 mg/dL High 74-106 [facility] Comment on above: Result Comment: JAZ GEMENT OF PATIENT CARE PER NURSING PROTOCOL Performed By: #### L 501.080 ####[facility] [address] [place], [address] FINGERSTICK GLU 186 mg/dL High 74-106 [facility] Comment on above: Result Comment: JAZ GEMENT OF PATIENT CARE PER NURSING PROTOCOL Performed By: #### L 501.080 ####[facility] [address] [place], [address] FINGERSTICK GLU 147 mg/dL High 74-106 [facility] Comment on above: Result Comment: JAZ GEMENT OF PATIENT CARE PER NURSING PROTOCOL Performed By: #### L 501.080 ####[facility] [address] [place], [address] CBC W/Diff, Automatedon 07-2 -2024 Absolute Lymph 1.00 X10 3/uL Normal 0.83-4.51 [facility] Comment on above: Performed By: #### L 100.0100, L500.2500 ####[facility] [address] [place], [address] Absolute Neut 7.3 X10 3/uL Normal 2.0-7.7 [facility] Comment on above: Performed By: #### L 100.0100, L500.2500 ####[facility] [address] [place], [address] Basophils/100 WBC (Bld) 0.4 % Normal 0-1 [facility] Comment on above: Performed By: #### L 100.0100, L500.2500 ####[facility] [address] [place], [address] Eosinophils/100 WBC (Bld) 5.9 % High 0-5 [facility] Comment on above: Performed By: #### L 100.0100, L500.2500 ####[facility] [address] [place], [address] Erythrocyte distribution width (RBC) [Ratio] 13.6 % Normal 11.6-14.6 [facility] Comment on above: Performed By: #### L 100.0100, L500.2500 ####[facility] [address] [place], [address] Hematocrit (Bld) [Volume fraction] 30.5 % Low 40-54 [facility] Comment on above: Performed By: #### L 100.0100, L500.2500 ####[facility] [address] [place], [address] Hemoglobin (Bld) [Mass/Vol] 9.9 g/dL Low 13.0-16. 5 [facility] Comment on above: Performed By: #### L 100.0100, L500.2500 ####[facility] [address] [place], [address] IG% 0.800 Normal 0.0-0.9 [facility] Comment on above: Result Comment: IG% - Immature Granulocytes (promyelocytes, myelocytes andmetamyelocytes) > 1% indicates that a LEFT SHIFT is Present. Performed By: #### L 100.0100, L500.2500 ####[facility] [address] [place], [address] Lymphocytes/100 WBC (Bld) 10.1 % Low 19-41 [facility] Comment on above: Performed By: #### L 100.0100, L500.2500 ####[facility] [address] [place], [address] MCH (RBC) [Entitic mass] 27.9 pg Normal 27.0-32.0 [facility] Comment on above: Performed By: #### L 100.0100, L500.2500 ####[facility] [address] [place], [address] MCHC (RBC) [Mass/Vol] 32.5 g/dL Normal 32-36 [facility] Comment on above: Performed By: #### L 100.0100, L500.2500 ####[facility] [address] [place], [address] MCV (RBC) [Entitic vol] 85.9 fL Normal 80-94 [facility] Comment on above: Performed By: #### L 100.0100, L500.2500 ####[facility] [address] [place], [address] Monocytes/100 WBC (Bld) 8.6 % Normal 0-10 [facility] Comment on above: Performed By: #### L 100.0100, L500.2500 ####[facility] [address] [place], [address] Neutrophils/100 WBC (Bld) 74.2 % High 47-70 [facility] Comment on above: Performed By: #### L 100.0100, L500.2500 ####[facility] [address] [place], [address] Nucleated RBC (Bld) [#/Vol] 0 10*3/uL Normal 0-5 [facility] Comment on above: Performed By: #### L 100.0100, L500.2500 ####[facility] [address] [place], [address] Platelet mean volume (Bld) [Entitic vol] 9.2 fL Normal 6.2-12.0 [facility] Comment on above: Performed By: #### L 100.0100, L500.2500 ####[facility] [address] [place], [address] Platelets (Bld) [#/Vol] 262 10*3/uL Normal 150-450 [facility] Comment on above: Performed By: #### L 100.0100, L500.2500 ####[facility] [address] [place], [address] RBC (Bld) [#/Vol] 3.55 10*6/uL Low 4.6-6.2 [facility] Comment on above: Performed By: #### L 100.0100, L500.2500 ####[facility] [address] [place], [address] RDW SD 42.9 fl Normal 35.1-43.9 [facility] Comment on above: Performed By: #### L 100.0100, L500.2500 ####[facility] [address] [place], [address] WBC (Bld) [#/Vol] 9.9 10*3/uL Normal 4.4-11.0 [facility] Comment on above: Performed By: #### L 100.0100, L500.2500 ####[facility] [address] [place], [address] Gram Stainon 02-06-2025 GS UNK UNK Bone 5th left Metatarsal toe Gram Stain No organisms seen 2+ White Blood Cells Normal [facility] Comment on above: Performed By: #### M 100.4001, M100.3000, M1.2000 ####[facility] [address] [place], [address] GS UNK UNK Clearance Fragment left 5th metatarsal toe Gram Stain No organisms seen Normal [facility] Comment on above: Performed By: #### M 100.2000, M100.3000, M100.4001 ####[facility] [address] [place], [address] Vancomycin, Random Levelon 0 02-06-2025 VANCO, RANDOM 21.4 ug/mL High 0.0-15.0 [facility] Comment on above: Result Comment: VANC OMYCIN STANDARD DRUG THERAPY: CRITICAL VALUE IS > 15.0 mg/LVANCOMYCIN HIGH INTENSITY THERAPY: CRITICAL VALUE IS > 20.0 mg/LPLEASE CONTACT PHARMACY SERVICES (#9062) FOR INTERPRETATIONOF RESULTS. THIS RESULT DOES NOT REPRESENT A PEAK OR TROUGHLEVEL FOR THIS DRUG. Performed By: #### L 501.8850 ####[facility] [address] [place], [address] Vancomycin, Trough Levelon 0 02-06-2025 VANCO, TROUGH 25.9 ug/mL High 5.0-15.0 [facility] Comment on above: Order Comment: Comme nts: Trough to be drawn 30 mins prior to scheduled [id number] Result Comment: Jalen mmended goal trough ranges are generally 10-15 mcg/mlfor less severe/complicated infections such as cellulitisor UTI and 15-20 mcg/ml for more severe/complicatedinfections such as bacteremia/sepsis, osteomyelitis,pneumonia or meningitis. Goal trough ranges should takeinto account indication, patient-specific factors andorganism KLAUS.VANCOMYCIN STANDARED DRUG THERAPY TROUGH LEVEL: 5.0 - 15.0 mg/LVANCOMYCIN HIGH INTENSITY THERAPY TROUGH LEVEL: 15.0 - 20.0 mg/LHigh Intensity therapy recommended for serious lifethreatening infections include:- Sokqjlznjn-Yvfpeynevgcb-Igwgvxuwq (Ventilator/Healtcare Associated)-SepsisPLEASE CONTACT PHARMACY SERVICES (#8521) FOR INTERPRETATIONOF RESULTS. Performed By: #### L 501.8820 ####[facility] [address] [facility] [place], [address] Wound Cultureon 02-06-2025 WC UNK UNK Clearance Fragment left 5th metatarsal toe No growth aerobically. Normal [facility] Comment on above: Performed By: #### M 100.2000, M100.3000, M100.4001 ####[facility] [address] [place], [address] Anaerobic cultureOrdered By: Kee Mejia on 02-05-2025 Bacteria identified Anaer cx Nom (Unsp spec) No anaerobic bacteria isolated. [facility] Bacteria identified Anaer cx Nom (Unsp spec) No growth in 5 days. [facility] Basic Metabolic Profile (BMP )on 02-05-2025 BUN/CRE 22.6 RATIO High 10-20 [facility] Comment on above: Performed By: #### L 100.0100, L500.2500 ####[facility] [address] [place], [address] Calcium [Mass/Vol] 8.8 mg/dL Normal 7.6-11.0 [facility] Comment on above: Performed By: #### L 100.0100, L500.2500 ####[facility] [address] [place], [address] Chloride [Moles/Vol] 110 mmol/L High 98-108 [facility] Comment on above: Performed By: #### L 100.0100, L500.2500 ####[facility] [address] [place], [address] CO2 [Moles/Vol] 20.0 mmol/L Low 21.0-32.0 [facility] Comment on above: Performed By: #### L 100.0100, L500.2500 ####[facility] [address] [place], [address] Creatinine [Mass/Vol] 1.81 mg/dL High 0.70-1.20 [facility] Comment on above: Performed By: #### L 100.0100, L500.2500 ####[facility] [address] [place], [address] ECRCL 45.33 ml/min Low 50-250 [facility] Comment on above: Performed By: #### L 100.0100, L500.2500 ####[facility] [address] [place], [address] GAP 12 Normal 5-15 [facility] Comment on above: Performed By: #### L 100.0100, L500.2500 ####[facility] [address] [place], [address] GFR/1.73 sq M.predicted among non-blacks MDRD (S/P/Bld) [Vol rate/Area] 38 mL/min/{1.73_m2} Low >60 [facility] Comment on above: Result Comment: mL/m in/1.73m2 CKD-EPI Creatinine Equation (2020) Performed By: #### L 100.0100, L500.2500 ####[facility] [address] [place], [address] Glucose [Mass/Vol] 166 mg/dL High 70-99 [facility] Comment on above: Performed By: #### L 100.0100, L500.2500 ####[facility] [address] [place], [address] Potassium [Moles/Vol] 3.8 mmol/L Normal 3.3-5.1 [facility] Comment on above: Performed By: #### L 100.0100, L500.2500 ####[facility] [address] [place], [address] Sodium [Moles/Vol] 141 mmol/L Normal 133-145 [facility] Comment on above: Performed By: #### L 100.0100, L500.2500 ####[facility] [address] [place], [address] Urea nitrogen [Mass/Vol] 41 mg/dL High 4-19 [facility] Comment on above: Performed By: #### L 100.0100, L500.2500 ####[facility] [address] [place], [address] Bedside Glucoseon 02-05-2025 FINGERSTICK GLU 168 mg/dL High 74-106 [facility] Comment on above: Result Comment: JAZ BRANDON OF PATIENT CARE PER NURSING PROTOCOL Performed By: #### L 501.080 ####[facility] [address] [place], [address] FINGERSTICK GLU 152 mg/dL High 74-106 [facility] Comment on above: Result Comment: JAZ GEMENT OF PATIENT CARE PER NURSING PROTOCOL Performed By: #### L 501.080 ####[facility] [address] [place], [address] FINGERSTICK GLU 153 mg/dL High 74-106 [facility] Comment on above: Result Comment: JAZ GEMENT OF PATIENT CARE PER NURSING PROTOCOL Performed By: #### L 501.080 ####[facility] [address] [place], [address] FINGERSTICK GLU 159 mg/dL High 74-106 [facility] Comment on above: Result Comment: JAZ GEMENT OF PATIENT CARE PER NURSING PROTOCOL Performed By: #### L 501.080 ####[facility] [address] [place], [address] FINGERSTICK GLU 167 mg/dL High 74-106 [facility] Comment on above: Result Comment: JAZ GEMENT OF PATIENT CARE PER NURSING PROTOCOL Performed By: #### L 501.080 ####[facility] [address] [place], [address] CBC W/Diff, Automatedon 07-2 5-2024 Absolute Lymph 1.00 X10 3/uL Normal 0.83-4.51 [facility] Comment on above: Performed By: #### L 100.0100, L500.2500 ####[facility] [address] [place], [address] Absolute Neut 8.2 X10 3/uL High 2.0-7.7 [facility] Comment on above: Performed By: #### L 100.0100, L500.2500 ####[facility] [address] [place], [address] Basophils/100 WBC (Bld) 0.2 % Normal 0-1 [facility] Comment on above: Performed By: #### L 100.0100, L500.2500 ####[facility] [address] [place], [address] Eosinophils/100 WBC (Bld) 5.2 % High 0-5 [facility] Comment on above: Performed By: #### L 100.0100, L500.2500 ####[facility] [address] [place], [address] Erythrocyte distribution width (RBC) [Ratio] 13.7 % Normal 11.6-14.6 [facility] Comment on above: Performed By: #### L 100.0100, L500.2500 ####[facility] [address] [place], [address] Hematocrit (Bld) [Volume fraction] 30.2 % Low 40-54 [facility] Comment on above: Performed By: #### L 100.0100, L500.2500 ####[facility] [address] [place], [address] Hemoglobin (Bld) [Mass/Vol] 9.7 g/dL Low 13.0-16. 5 [facility] Comment on above: Performed By: #### L 100.0100, L500.2500 ####[facility] [address] [place], [address] IG% 0.800 Normal 0.0-0.9 [facility] Comment on above: Result Comment: IG% - Immature Granulocytes (promyelocytes, myelocytes andmetamyelocytes) > 1% indicates that a LEFT SHIFT is Present. Performed By: #### L 100.0100, L500.2500 ####[facility] [address] [place], [address] Lymphocytes/100 WBC (Bld) 9.4 % Low 19-41 [facility] Comment on above: Performed By: #### L 100.0100, L500.2500 ####[facility] [address] [place], [address] MCH (RBC) [Entitic mass] 27.6 pg Normal 27.0-32.0 [facility] Comment on above: Performed By: #### L 100.0100, L500.2500 ####[facility] [address] [place], [address] MCHC (RBC) [Mass/Vol] 32.1 g/dL Normal 32-36 [facility] Comment on above: Performed By: #### L 100.0100, L500.2500 ####[facility] [address] [place], [address] MCV (RBC) [Entitic vol] 85.8 fL Normal 80-94 [facility] Comment on above: Performed By: #### L 100.0100, L500.2500 ####[facility] [address] [place], [address] Monocytes/100 WBC (Bld) 8.0 % Normal 0-10 [facility] Comment on above: Performed By: #### L 100.0100, L500.2500 ####[facility] [address] [place], [address] Neutrophils/100 WBC (Bld) 76.4 % High 47-70 [facility] Comment on above: Performed By: #### L 100.0100, L500.2500 ####[facility] [address] [place], [address] Nucleated RBC (Bld) [#/Vol] 0 10*3/uL Normal 0-5 [facility] Comment on above: Performed By: #### L 100.0100, L500.2500 ####[facility] [address] [place], [address] Platelet mean volume (Bld) [Entitic vol] 9.2 fL Normal 6.2-12.0 [facility] Comment on above: Performed By: #### L 100.0100, L500.2500 ####[facility] [address] [place], [address] Platelets (Bld) [#/Vol] 232 10*3/uL Normal 150-450 [facility] Comment on above: Performed By: #### L 100.0100, L500.2500 ####[facility] [address] [place], [address] RBC (Bld) [#/Vol] 3.52 10*6/uL Low 4.6-6.2 [facility] Comment on above: Performed By: #### L 100.0100, L500.2500 ####[facility] [address] [place], [address] RDW SD 43.1 fl Normal 35.1-43.9 [facility] Comment on above: Performed By: #### L 100.0100, L500.2500 ####[facility] [address] [place], [address] WBC (Bld) [#/Vol] 10.7 10*3/uL Normal 4.4-11.0 [facility] Comment on above: Performed By: #### L 100.0100, L500.2500 ####[facility] [address] [place], [address] Decalcification bone/plaqueo n 02-05-2025 Decalcification bone/plaque Normal [facility] Comment on above: Performed By: #### P DEC ####[facility] [address] [place], [address] Foot min 3 Viewson 5 Foot min 3 Views Normal [facility] Gram stainOrdered By: Yeni Mejia on 02-05-2025 Microscopic observation Gram stain Nom (Unsp spec) [facility] M8200.1000on 02-05-2025 M8200.1000 Normal Reference Range = Negative MRSA DNA Nose Ql ANGELY+probe GeneXpert Instrument, PCR method MRSA PCR MRSA NEGATIVE Normal [facility] Comment on above: Performed By: #### M 8200.1000 ####[facility] [address] [place], [address] MR/POSTOP.ANEon 02-05-2025 MR/POSTOP.ANE Normal [facility] Magnetic resonance imaging r eportOrdered By: Jay Barrow on 02-05-2025 Study report [facility] Nasal methicillin resistant Staphylococcus aureus (MRSA) DNA detection by PCROrdered By: Karen Aly on 02-05-2025 MRSA DNA ANGELY+probe Ql (Nose) [facility] Operative Reporton Operative Report Normal [facility] Routine wound cultureOrdered By: Kee Mejia on 02-05-2025 Microbial culture, routine Meth. resista nt Staph. aureus Abnormal [facility] Basic Metabolic Profile (BMP )on 02-04-2025 BUN/CRE 17.8 RATIO Normal 10-20 [facility] Comment on above: Performed By: #### L 100.0100, L500.2500 ####[facility] [address] [place], [address] Calcium [Mass/Vol] 8.3 mg/dL Normal 7.6-11.0 [facility] Comment on above: Performed By: #### L 100.0100, L500.2500 ####[facility] [address] [place], [address] Chloride [Moles/Vol] 110 mmol/L High 98-108 [facility] Comment on above: Performed By: #### L 100.0100, L500.2500 ####[facility] [address] [place], [address] CO2 [Moles/Vol] 23.0 mmol/L Normal 21.0-32.0 [facility] Comment on above: Performed By: #### L 100.0100, L500.2500 ####[facility] [address] [place], [address] Creatinine [Mass/Vol] 1.49 mg/dL High 0.70-1.20 [facility] [facility] Comment on above: Performed By: #### L 100.0100, L500.2500 ####[facility] [address] [place], [address] ECRCL 55.04 ml/min Normal 50-250 [facility] Comment on above: Performed By: #### L 100.0100, L500.2500 ####[facility] [address] [place], [address] GAP 9 Normal 5-15 [facility] Comment on above: Performed By: #### L 100.0100, L500.2500 ####[facility] [address] [place], [address] GFR/1.73 sq M.predicted among non-blacks MDRD (S/P/Bld) [Vol rate/Area] 48 mL/min/{1.73_m2} Low >60 [facility] Comment on above: Result Comment: mL/m in/1.73m2 CKD-EPI Creatinine Equation (2020) Performed By: #### L 100.0100, L500.2500 ####[facility] [address] [place], [address] Glucose [Mass/Vol] 170 mg/dL High 70-99 [facility] Comment on above: Performed By: #### L 100.0100, L500.2500 ####[facility] [address] [place], [address] Potassium [Moles/Vol] 3.9 mmol/L Normal 3.3-5.1 [facility] Comment on above: Performed By: #### L 100.0100, L500.2500 ####[facility] [address] [place], [address] Sodium [Moles/Vol] 142 mmol/L Normal 133-145 [facility] Comment on above: Performed By: #### L 100.0100, L500.2500 ####[facility] [address] [place], [address] Urea nitrogen [Mass/Vol] 27 mg/dL High 4-19 [facility] Comment on above: Performed By: #### L 100.0100, L500.2500 ####[facility] [address] [place], [address] Bedside Glucoseon 02-04-2025 FINGERSTICK GLU 176 mg/dL High 74-106 [facility] Comment on above: Result Comment: JAZ GEMENT OF PATIENT CARE PER NURSING PROTOCOL Performed By: #### L 501.080 ####[facility] [address] [place], [address] FINGERSTICK GLU 143 mg/dL High 74-106 [facility] Comment on above: Result Comment: JAZ GEMENT OF PATIENT CARE PER NURSING PROTOCOL Performed By: #### L 501.080 ####[facility] [address] [place], [address] FINGERSTICK GLU 171 mg/dL High 74-106 [facility] Comment on above: Result Comment: JAZ GEMENT OF PATIENT CARE PER NURSING PROTOCOL Performed By: #### L 501.080 ####[facility] [address] [place], [address] FINGERSTICK GLU 169 mg/dL High 74-106 [facility] Comment on above: Result Comment: JAZ GEMENT OF PATIENT CARE PER NURSING PROTOCOL Performed By: #### L 501.080 ####[facility] [address] [place], [address] CBC W/Diff, Automatedon 07-2 Absolute Lymph 0.61 X10 3/uL Low 0.83-4.51 [facility] Comment on above: Performed By: #### L 100.0100, L500.2500 ####[facility] [address] [place], [address] Absolute Neut 9.2 X10 3/uL High 2.0-7.7 [facility] Comment on above: Performed By: #### L 100.0100, L500.2500 ####[facility] [address] [place], [address] Basophils/100 WBC (Bld) 0.3 % Normal 0-1 [facility] Comment on above: Performed By: #### L 100.0100, L500.2500 ####[facility] [address] [place], [address] Eosinophils/100 WBC (Bld) 4.1 % Normal 0-5 [facility] Comment on above: Performed By: #### L 100.0100, L500.2500 ####[facility] [address] [place], [address] Erythrocyte distribution width (RBC) [Ratio] 13.7 % Normal 11.6-14.6 [facility] Comment on above: Performed By: #### L 100.0100, L500.2500 ####[facility] [address] [place], [address] Hematocrit (Bld) [Volume fraction] 31.0 % Low 40-54 [facility] Comment on above: Performed By: #### L 100.0100, L500.2500 ####[facility] [address] [place], [address] Hemoglobin (Bld) [Mass/Vol] 10.1 g/dL Low 13.0-16. 5 [facility] Comment on above: Performed By: #### L 100.0100, L500.2500 ####[facility] [address] [place], [address] IG% 0.900 Normal 0.0-0.9 [facility] Comment on above: Result Comment: IG% - Immature Granulocytes (promyelocytes, myelocytes andmetamyelocytes) > 1% indicates that a LEFT SHIFT is Present. Performed By: #### L 100.0100, L500.2500 ####[facility] [address] [place], [address] Lymphocytes/100 WBC (Bld) 5.3 % Low 19-41 [facility] Comment on above: Performed By: #### L 100.0100, L500.2500 ####[facility] [address] [place], [address] MCH (RBC) [Entitic mass] 27.8 pg Normal 27.0-32.0 [facility] Comment on above: Performed By: #### L 100.0100, L500.2500 ####[facility] [address] [place], [address] MCHC (RBC) [Mass/Vol] 32.6 g/dL Normal 32-36 [facility] Comment on above: Performed By: #### L 100.0100, L500.2500 ####[facility] [address] [place], [address] MCV (RBC) [Entitic vol] 85.4 fL Normal 80-94 [facility] Comment on above: Performed By: #### L 100.0100, L500.2500 ####[facility] [address] [place], [address] Monocytes/100 WBC (Bld) 9.4 % Normal 0-10 [facility] Comment on above: Performed By: #### L 100.0100, L500.2500 ####[facility] [address] [place], [address] Neutrophils/100 WBC (Bld) 80.0 % High 47-70 [facility] Comment on above: Performed By: #### L 100.0100, L500.2500 ####[facility] [address] [place], [address] Nucleated RBC (Bld) [#/Vol] 0 10*3/uL Normal 0-5 [facility] Comment on above: Performed By: #### L 100.0100, L500.2500 ####[facility] [address] [place], [address] Platelet mean volume (Bld) [Entitic vol] 9.3 fL Normal 6.2-12.0 [facility] Comment on above: Performed By: #### L 100.0100, L500.2500 ####[facility] [address] [place], [address] Platelets (Bld) [#/Vol] 193 10*3/uL Normal 150-450 [facility] Comment on above: Performed By: #### L 100.0100, L500.2500 ####[facility] [address] [place], [address] RBC (Bld) [#/Vol] 3.63 10*6/uL Low 4.6-6.2 [facility] Comment on above: Performed By: #### L 100.0100, L500.2500 ####[facility] [address] [place], [address] RDW SD 43.2 fl Normal 35.1-43.9 [facility] Comment on above: Performed By: #### L 100.0100, L500.2500 ####[facility] [address] [place], [address] WBC (Bld) [#/Vol] 11.4 10*3/uL High 4.4-11.0 [facility] Comment on above: Performed By: #### L 100.0100, L500.2500 ####[facility] [address] [place], [address] Consultation - Surgicalon Consultation - Surgical Normal [facility] Gram Stainon 02-04-2025 GS ONLY AEROBIC SWAB WA S SENT DRUGS WITH ANAROBES MAYBE INHIBITED. Gram Stain 4+ Gram positive cocci Rare Epithelial cells 4+ Gram positive rods Normal [facility] Comment on above: Performed By: #### M 100.4001, L8200.1075, M100.3000, M100.1999 ####[facility] [address] [place], [address] Lower Ext/No Jt/w/oon 2024 Lower Ext/No Jt/w/o Normal [facility] MRSA Wound DNA by PCRon 01-13 MRSA DNA ASSAY Positive Abnormal Negative [facility] Comment on above: Order Comment: Wound left foot Result Comment: RESU LTS CALLED TO [facility] 02/04/25213 Edwar R Mitchell.REPORT READ BACK BY SAME. AMENDED REPORT 02/04/25213 MRSA RESULT previously reported as: POSITIVE H Performed By: #### M 100.4001, L8200.1075, M100.3000, M100.1999 ####[facility] [address] [place], [address] Urine Cultureon 02-04-2025 URC Culture exhibits no growth. Normal [facility] Comment on above: Performed By: #### M 100.2200, L400.0001 ####[facility] [address] [place], [place], [address] Vancomycin, Random Levelon 0 02-04-2025 VANCO, RANDOM 17.8 ug/mL High 0.0-15.0 [facility] Comment on above: Result Comment: VANC OMYCIN STANDARD DRUG THERAPY: CRITICAL VALUE IS > 15.0 mg/LVANCOMYCIN HIGH INTENSITY THERAPY: CRITICAL VALUE IS > 20.0 mg/LPLEASE CONTACT PHARMACY SERVICES (#6323) FOR INTERPRETATIONOF RESULTS. THIS RESULT DOES NOT REPRESENT A PEAK OR TROUGHLEVEL FOR THIS DRUG. Performed By: #### L 501.8850 ####[facility] [address] [place], [place], [address] Vancomycin, Trough Levelon 0 02-04-2025 VANCO, TROUGH 21.4 ug/mL High 5.0-15.0 [facility] Comment on above: Order Comment: Comme nts: Trough to be drawn 30 mins prior to scheduled [id number] Result Comment: Jalen mmended goal trough ranges are generally 10-15 mcg/mlfor less severe/complicated infections such as cellulitisor UTI and 15-20 mcg/ml for more severe/complicatedinfections such as bacteremia/sepsis, osteomyelitis,pneumonia or meningitis. Goal trough ranges should takeinto account indication, patient-specific factors andorganism KLAUS.VANCOMYCIN STANDARED DRUG THERAPY TROUGH LEVEL: 5.0 - 15.0 mg/LVANCOMYCIN HIGH INTENSITY THERAPY TROUGH LEVEL: 15.0 - 20.0 mg/LHigh Intensity therapy recommended for serious lifethreatening infections include:- Etgilghoti-Yyqgbthuqbzg-Qbswuqexh (Ventilator/Healtcare Associated)-SepsisPLEASE CONTACT PHARMACY SERVICES (#1615) FOR INTERPRETATIONOF RESULTS. Performed By: #### L 501.8820 ####[facility] [address] [place], [place], [address] Anaerobic cultureOrdered By: Kee Mejia on 02-03-2025 Bacteria identified Anaer cx Nom (Unsp spec) No anaerobic bacteria isolated. [facility] Arterial study reportOrdered By: Aneesh Ac on 02-03-2025 Noninvasive arteriosclerosis study report [facility] Work Phone: Bedside Glucoseon 02-03-2025 FINGERSTICK GLU 170 mg/dL High 74-106 [facility] Comment on above: Result Comment: JAZ GEMENT OF PATIENT CARE PER NURSING PROTOCOL Performed By: #### L 501.080 ####[facility] [address] [place], [place], [address] FINGERSTICK GLU 154 mg/dL High 74-106 [facility] Comment on above: Result Comment: JAZ GEMENT OF PATIENT CARE PER NURSING PROTOCOL Performed By: #### L 501.080 ####[facility] [address] [place], [address] FINGERSTICK GLU 140 mg/dL High 74-106 [facility] Comment on above: Result Comment: JAZ GEMENT OF PATIENT CARE PER NURSING PROTOCOL Performed By: #### L 501.080 ####[facility] [address] [place], [address] FINGERSTICK GLU 148 mg/dL High 74-106 [facility] Comment on above: Result Comment: JAZ GEMENT OF PATIENT CARE PER NURSING PROTOCOL Performed By: #### L 501.080 ####[facility] [address] [place], [address] FINGERSTICK GLU 140 mg/dL High -106 [facility] Comment on above: Result Comment: JAZ GEMENT OF PATIENT CARE PER NURSING PROTOCOL Performed By: #### L 501.080 ####[facility] [address] [place], [address] Bilirubin, totalOrdered By: Karen Aly on 02-03-2025 Bilirubin [Mass/Vol] 0.61 mg/dL 0.00-1.30 [facility] CBC W/Diff, Automatedon 01-13 PLT EST ADEQUATE Normal ADEQ [facility] Comment on above: Performed By: #### L 101.9900, L500.4050, L100.0100, L501.5200, L501.9985, L501.6710 ####[facility] [address] [place], [address] CRPon 02-03-2025 C-REACTIVE PROT 138.00 mg/L High 0.0-3.0 [facility] Comment on above: Performed By: #### L 101.9900, L500.4050, L100.0100, L501.5200, L501.9985, L501.6710 ####[facility] [address] [place], [address] Comprehensive Metabolic Prof wyon 02-03-2025 Albumin [Mass/Vol] 2.9 g/dL Low 3.4-4.8 [facility] Comment on above: Performed By: #### L 101.9900, L500.4050, L100.0100, L501.5200, L501.9985, L501.6710 ####[facility] [address] [place], [address] ALK PHOS 106 U/L Normal 40-129 [facility] Comment on above: Performed By: #### L 101.9900, L500.4050, L100.0100, L501.5200, L501.9985, L501.6710 ####[facility] [address] [place], [address] ALT [Catalytic activity/Vol] 9 U/L Normal <=46 [facility] Comment on above: Performed By: #### L 101.9900, L500.4050, L100.0100, L501.5200, L501.9985, L501.6710 ####[facility] [address] [place], [address] AST [Catalytic activity/Vol] 15 U/L Normal <=37 [facility] Comment on above: Result Comment: Hemo lysis present, Results??could be affected.?? Performed By: #### L 101.9900, L500.4050, L100.0100, L501.5200, L501.9985, L501.6710 ####[facility] [address] [place], [address] Bilirubin [Mass/Vol] 0.61 mg/dL Normal 0.00-1.30 [facility] Comment on above: Performed By: #### L 101.9900, L500.4050, L100.0100, L501.5200, L501.9985, L501.6710 ####[facility] [address] [place], [address] BUN/CRE 16.9 RATIO Normal 10-20 [facility] Comment on above: Performed By: #### L 101.9900, L500.4050, L100.0100, L501.5200, L501.9985, L501.6710 ####[facility] [address] [place], [address] Calcium [Mass/Vol] 8.3 mg/dL Normal 7.6-11.0 [facility] Comment on above: Performed By: #### L 101.9900, L500.4050, L100.0100, L501.5200, L501.9985, L501.6710 ####[facility] [address] [place], [address] Chloride [Moles/Vol] 107 mmol/L Normal 98-108 [facility] Comment on above: Performed By: #### L 101.9900, L500.4050, L100.0100, L501.5200, L501.9985, L501.6710 ####[facility] [address] [place], [address] CO2 [Moles/Vol] 18.1 mmol/L Low 21.0-32.0 [facility] Comment on above: Performed By: #### L 101.9900, L500.4050, L100.0100, L501.5200, L501.9985, L501.6710 ####[facility] [address] [place], [address] Creatinine [Mass/Vol] 1.10 mg/dL Normal 0.70-1.20 [facility] Comment on above: Performed By: #### L 101.9900, L500.4050, L100.0100, L501.5200, L501.9985, L501.6710 ####[facility] [address] [place], [address] GAP 14 Normal 5-15 [facility] Comment on above: Performed By: #### L 101.9900, L500.4050, L100.0100, L501.5200, L501.9985, L501.6710 ####[facility] [address] [place], [address] GFR/1.73 sq M.predicted among non-blacks MDRD (S/P/Bld) [Vol rate/Area] 69 mL/min/{1.73_m2} Normal >60 [facility] Comment on above: Result Comment: mL/m in/1.73m2 CKD-EPI Creatinine Equation (2020) Performed By: #### L 101.9900, L500.4050, L100.0100, L501.5200, L501.9985, L501.6710 ####[facility] [address] [place], [address] Glucose [Mass/Vol] 154 mg/dL High 70-99 [facility] Comment on above: Performed By: #### L 101.9900, L500.4050, L100.0100, L501.5200, L501.9985, L501.6710 ####[facility] [address] [place], [address] Potassium [Moles/Vol] 4.2 mmol/L Normal 3.3-5.1 [facility] Comment on above: Result Comment: Hemo lysis present, Results??could be affected.?? Performed By: #### L 101.9900, L500.4050, L100.0100, L501.5200, L501.9985, L501.6710 ####[facility] [address] [place], [address] Sodium [Moles/Vol] 139 mmol/L Normal 133-145 [facility] Comment on above: Performed By: #### L 101.9900, L500.4050, L100.0100, L501.5200, L501.9985, L501.6710 ####[facility] [address] [place], [place], [address] T PROT 5.6 g/dL Low 5.9-8.4 [facility] Comment on above: Performed By: #### L 101.9900, L500.4050, L100.0100, L501.5200, L501.9985, L501.6710 ####[facility] [address] [place], [place], [address] Urea nitrogen [Mass/Vol] 19 mg/dL Normal 4-19 [facility] Comment on above: Performed By: #### L 101.9900, L500.4050, L100.0100, L501.5200, L501.9985, L501.6710 ####[facility] [address] [place], [address] Electrocardiogram reportOrde red By: Tuan Thakkar on 02-03-2025 EKG study [facility] Other Phone: Erythrocyte Sed Rateon 02-03 SED RATE 14 mm/hr Normal 0-20 [facility] Comment on above: Performed By: #### L 101.9900, L500.4050, L100.0100, L501.5200, L501.9985, L501.6710 ####[facility] [address] [place], [address] Erythrocyte sedimentation ra teOrdered By: Karen Aly on 02-03-2025 ESR (Bld) [Velocity] 14 mm/h 0-20 [facility] Gram stainOrdered By: Yeni Mejia on 02-03-2025 Microscopic observation Gram stain Nom (Unsp spec) [facility] Hemoglobin A1con 02-03-2025 HbA1c (Bld) [Mass fraction] 6.7 % High <=5.6 [facility] Comment on above: Result Comment: Norm al < 5.7 % Prediabetic 5.7 - 6.4 % Diabetic >or= 6.5 % Please note range changes. Performed By: #### L 101.9900, L500.4050, L100.0100, L501.5200, L501.9985, L501.6710 ####[facility] [address] [place], [place], [address] Hemoglobin A1c percentageOrd ered By: Karen Aly on 02-03-2025 HbA1c (Bld) [Mass fraction] 6.7 % High <5.7 [facility] Lactic Acidon 02-03-2025 Lactate [Moles/Vol] 1.6 mmol/L Normal 0.0-2.0 [facility] Comment on above: Performed By: #### L 503.6005 ####[facility] [address] [place], [place], [address] Lactic acid measurementOrder ed By: Nicholas Galarza on 02-03-2025 Lactate [Moles/Vol] 1.6 mmol/L 0.0-2.0 [facility] Legionella Antigen Urineon 0 02-03-2025 LEGU URINE, CLEAN CATCH Legionella Ag, Urine Negative (See interpretation below) Normal [facility] Comment on above: Performed By: #### M 300.0890, M300.4500 ####[facility] [address] [place], [place], [address] Lower Ext Art Exam w/o Exerc jimmy 02-03-2025 Lower Ext Art Exam w/o Exercis Normal [facility] MRSA Wound DNA by PCRon 01-13 MRSA DNA ASSAY Normal Negative [facility] Comment on above: Order Comment: left foot Result Comment: Canc elled via OM: Duplicate Order Performed By: #### L 8200.1075 ####[facility] [address] [place], [place], [address] PROBE CHECK Normal [facility] Comment on above: Order Comment: left foot Result Comment: Canc elled via OM: Duplicate Order Performed By: #### L 8200.1075 ####[facility] [address] [place], [address] SA DNA ASSAY Normal Negative [facility] Comment on above: Order Comment: left foot Result Comment: Canc elled via OM: Duplicate Order Performed By: #### L 8200.1075 ####[facility] [address] [place], [address] SPC Normal [facility] Comment on above: Order Comment: left foot Result Comment: Canc elled via OM: Duplicate Order Performed By: #### L 8200.1075 ####[facility] [address] [place], [address] Magnesiumon 02-03-2025 Magnesium [Mass/Vol] 1.7 mg/dL Normal 1.5-2.2 [facility] Comment on above: Performed By: #### L 101.9900, L500.4050, L100.0100, L501.5200, L501.9985, L501.6710 ####[facility] [address] [place], [address] Magnesium measurement (mass/ volume)Ordered By: Karen Aly on 02-03-2025 Magnesium (Unsp spec) [Mass/Vol] 1.7 mg/dL 1.5-2.2 [facility] Platelet estimateOrdered By: Karen Aly on 02-03-2025 Platelets LM Ql (Bld) ADEQUATE ADEQ [facility] RESPIRATORY PANEL MOLECULARo n 02-03-2025 RP PANEL Normal [facility] Comment on above: Performed By: #### M 100.638 ####[facility] [facility] [address] [place], [address] Respiratory pathogens detect ion panel by molecular detection methodOrdered By: Karen Aly on 02-03-2025 Respiratory pathogens DNA and RNA panel ANGELY+probe (Resp) [facility] Routine wound cultureOrdered By: eKe Mejia on 02-03-2025 Microbial culture, routine Meth. resista nt Staph. aureus Abnormal [facility] Microbial culture, routine Enterobacter cloacae complex Abnormal [facility] Serum globulin measurementOr dered By: Karen Aly on 02-03-2025 Globulin (S) [Mass/Vol] 2.7 g/dL 2.2-4.2 [facility] Serum or plasma C reactive p rotein measurement (mass/volume)Ordered By: Karen Aly on 02-03-2025 CRP [Mass/Vol] 138.00 mg/L High 0.0-3.0 [facility] Serum or plasma albumin antoine urement (mass/volume)Ordered By: Karen Aly on 02-03-2025 Albumin [Mass/Vol] 2.9 g/dL Low 3.4-4.8 [facility] Serum or plasma albumin/glob ulin mass ratioOrdered By: Karen Aly on 02-03-2025 Albumin/Globulin [Mass ratio] 1.1 {ratio} 0.9-2.4 [facility] Serum or plasma alkaline marilin sphatase measurementOrdered By: Karen Aly on 02-03-2025 ALP [Catalytic activity/Vol] 106 U/L 40-129 [facility] Staphylococcus aureus DNA de tection by probe and target amplification methodOrdered By: Kee Mejia on 02-03-2025 S. aureus DNA ANGELY+probe Ql (Unsp spec) Positive High Negative [facility] Strep pneumoniae Antig(UR,CS F)on 02-03-2025 STPAG Normal [facility] Comment on above: Performed By: #### M 300.5349, M300.6121 ####[facility] [address] [place], [place], [id number] Total proteinOrdered By: Dede Aly on 02-03-2025 Protein [Mass/Vol] 5.6 g/dL Low 5.9-8.4 [facility] 12 Lead EKGon 02-02-2025 12 Lead EKG Normal [facility] Absolute lymphocyte countOrd ered By: Nicholas Galarza on 02-02-2025 Lymphocytes Auto (Unsp spec) [#/Vol] 0.50 10*3/uL Low 0.83-4.51 [facility] Absolute neutrophil countOrd ered By: Nicholas Galarza on 02-02-2025 Neutrophils (Bld) [#/Vol] 12.0 10*3/uL High 2.0-7.7 [facility] Activated partial thrombopla stin time (aPTT) in platelet poor plasma by coagulation aOrdered By: Nicholas Galarza on 02-02-2025 aPTT Coag (PPP) [Time] 34.0 s 24.1-36.2 [facility] Anion gap in Serum or Plasma Ordered By: Nicholas Galarza on 02-02-2025 Anion gap [Moles/Vol] 14 mmol/L 5-15 [facility] Automated lymphocyte count a s percentage of total leukocytesOrdered By: Nicholas Galarza on 02-02-2025 Lymphocytes/100 WBC Auto (Unsp spec) 3.6 % Low 19-41 [facility] BUN/creatinine ratioOrdered By: Nicholas Galarza on 02-02-2025 Urea nitrogen/Creatinine [Mass ratio] 17.0 mg/mg 10-20 [facility] Basophil percentageOrdered B y: Nicholas Galarza on 02-02-2025 Basophils/100 WBC (Bld) 0.2 % 0-1 [facility] Bilirubin Test strip Ql (U)O rdered By: Nicholas Galarza on 02-02-2025 Bilirubin Ql (U) Negative Negative [facility] Bilirubin, totalOrdered By: Nicholas Galarza on 02-02-2025 Bilirubin [Mass/Vol] 0.50 mg/dL 0.00-1.30 [facility] Blood cultureOrdered By: Hermes Galarza on 02-02-2025 Bacteria identified Cx Nom (Bld) No growth in 5 days. [facility] Bacteria identified Cx Nom (Bld) No growth in 5 days. [facility] Brain/Head without Contrasto n 02-02-2025 Brain/Head without Contrast Normal [facility] CBC W/Diff, Automatedon 01-13 Absolute Lymph 0.50 X10 3/uL Low 0.83-4.51 [facility] Comment on above: Performed By: #### L 300.4310, L503.6005, M200.1000, L100.0100, L300.3900, L500.4050 ####[facility] [address] [place], [address] Absolute Neut 12.0 X10 3/uL High 2.0-7.7 [facility] Comment on above: Performed By: #### L 300.4310, L503.6005, M200.1000, L100.0100, L300.3900, L500.4050 ####[facility] [address] [place], [address] Basophils/100 WBC (Bld) 0.2 % Normal 0-1 [facility] Comment on above: Performed By: #### L 300.4310, L503.6005, M200.1000, L100.0100, L300.3900, L500.4050 ####[facility] [address] [place], [address] Eosinophils/100 WBC (Bld) 0.6 % Normal 0-5 [facility] Comment on above: Performed By: #### L 300.4310, L503.6005, M200.1000, L100.0100, L300.3900, L500.4050 ####[facility] [address] [place], [address] Erythrocyte distribution width (RBC) [Ratio] 13.6 % Normal 11.6-14.6 [facility] Comment on above: Performed By: #### L 300.4310, L503.6005, M200.1000, L100.0100, L300.3900, L500.4050 ####[facility] [address] [place], [address] Hematocrit (Bld) [Volume fraction] 33.5 % Low 40-54 [facility] Comment on above: Performed By: #### L 300.4310, L503.6005, M200.1000, L100.0100, L300.3900, L500.4050 ####[facility] [address] [place], [address] Hemoglobin (Bld) [Mass/Vol] 10.9 g/dL Low 13.0-16. 5 [facility] Comment on above: Performed By: #### L 300.4310, L503.6005, M200.1000, L100.0100, L300.3900, L500.4050 ####[facility] [address] [place], [address] IG% 0.700 Normal 0.0-0.9 [facility] Comment on above: Result Comment: IG% - Immature Granulocytes (promyelocytes, myelocytes andmetamyelocytes) > 1% indicates that a LEFT SHIFT is Present. Performed By: #### L 300.4310, L503.6005, M200.1000, L100.0100, L300.3900, L500.4050 ####[facility] [address] [place], [address] Lymphocytes/100 WBC (Bld) 3.6 % Low 19-41 [facility] Comment on above: Performed By: #### L 300.4310, L503.6005, M200.1000, L100.0100, L300.3900, L500.4050 ####[facility] [address] [place], [address] MCH (RBC) [Entitic mass] 27.7 pg Normal 27.0-32.0 [facility] Comment on above: Performed By: #### L 300.4310, L503.6005, M200.1000, L100.0100, L300.3900, L500.4050 ####[facility] [address] [place], [address] MCHC (RBC) [Mass/Vol] 32.5 g/dL Normal 32-36 [facility] Comment on above: Performed By: #### L 300.4310, L503.6005, M200.1000, L100.0100, L300.3900, L500.4050 ####[facility] [address] [place], [address] MCV (RBC) [Entitic vol] 85.0 fL Normal 80-94 [facility] Comment on above: Performed By: #### L 300.4310, L503.6005, M200.1000, L100.0100, L300.3900, L500.4050 ####[facility] [address] [place], [address] Monocytes/100 WBC (Bld) 8.7 % Normal 0-10 [facility] Comment on above: Performed By: #### L 300.4310, L503.6005, M200.1000, L100.0100, L300.3900, L500.4050 ####[facility] [address] [place], [address] Neutrophils/100 WBC (Bld) 86.2 % High 47-70 [facility] Comment on above: Performed By: #### L 300.4310, L503.6005, M200.1000, L100.0100, L300.3900, L500.4050 ####[facility] [address] [place], [address] Nucleated RBC (Bld) [#/Vol] 0 10*3/uL Normal 0-5 [facility] Comment on above: Performed By: #### L 300.4310, L503.6005, M200.1000, L100.0100, L300.3900, L500.4050 ####[facility] [address] [place], [address] Platelet mean volume (Bld) [Entitic vol] 9.4 fL Normal 6.2-12.0 [facility] Comment on above: Performed By: #### L 300.4310, L503.6005, M200.1000, L100.0100, L300.3900, L500.4050 ####[facility] [address] [place], [address] Platelets (Bld) [#/Vol] 203 10*3/uL Normal 150-450 [facility] Comment on above: Performed By: #### L 300.4310, L503.6005, M200.1000, L100.0100, L300.3900, L500.4050 ####[facility] [address] [place], [address] RBC (Bld) [#/Vol] 3.94 10*6/uL Low 4.6-6.2 [facility] Comment on above: Performed By: #### L 300.4310, L503.6005, M200.1000, L100.0100, L300.3900, L500.4050 ####[facility] [address] [place], [address] RDW SD 42.2 fl Normal 35.1-43.9 [facility] Comment on above: Performed By: #### L 300.4310, L503.6005, M200.1000, L100.0100, L300.3900, L500.4050 ####[facility] [address] [place], [address] WBC (Bld) [#/Vol] 13.9 10*3/uL High 4.4-11.0 [facility] Comment on above: Performed By: #### L 300.4310, L503.6005, M200.1000, L100.0100, L300.3900, L500.4050 ####[facility] [address] [place], [address] CRPon 02-02-2025 C-REACTIVE PROT 94.50 mg/L High 0.0-3.0 [facility] Comment on above: Order Comment: Comme nts: may add to ED labs Performed By: #### L 501.5200, L501.6710, L101.9900 ####[facility] [address] [place], [address] Carbon dioxide, total [Moles /volume] in Central venous bloodOrdered By: Nicholas Galarza on 02-02-2025 CO2 [Moles/Vol] 22.4 mmol/L 21.0-32.0 [facility] Chest 1 View (Portable)on Chest 1 View (Portable) Normal [facility] Chloride assayOrdered By: Jose Juan Galarza on 02-02-2025 Chloride [Moles/Vol] 104 mmol/L 98-108 [facility] Comprehensive Metabolic Prof ilon 02-02-2025 Albumin [Mass/Vol] 3.5 g/dL Normal 3.4-4.8 [facility] Comment on above: Performed By: #### L 300.4310, L503.6005, M200.1000, L100.0100, L300.3900, L500.4050 ####[facility] [address] [place], [address] Albumin/Globulin [Mass ratio] 1.5 {ratio} Normal 0.9-2.4 [facility] Comment on above: Performed By: #### L 300.4310, L503.6005, M200.1000, L100.0100, L300.3900, L500.4050 ####[facility] [address] [place], [address] ALK PHOS 115 U/L Normal 40-129 [facility] Comment on above: Performed By: #### L 300.4310, L503.6005, M200.1000, L100.0100, L300.3900, L500.4050 ####[facility] [address] [place], [address] ALT [Catalytic activity/Vol] 10 U/L Normal <=46 [facility] Comment on above: Performed By: #### L 300.4310, L503.6005, M200.1000, L100.0100, L300.3900, L500.4050 ####[facility] [address] [place], [address] AST [Catalytic activity/Vol] 15 U/L Normal <=37 [facility] Comment on above: Performed By: #### L 300.4310, L503.6005, M200.1000, L100.0100, L300.3900, L500.4050 ####[facility] [address] [place], [address] Bilirubin [Mass/Vol] 0.50 mg/dL Normal 0.00-1.30 [facility] Comment on above: Performed By: #### L 300.4310, L503.6005, M200.1000, L100.0100, L300.3900, L500.4050 ####[facility] [address] [place], [address] BUN/CRE 17.0 RATIO Normal 10-20 [facility] Comment on above: Performed By: #### L 300.4310, L503.6005, M200.1000, L100.0100, L300.3900, L500.4050 ####[facility] [address] [place], [address] Calcium [Mass/Vol] 8.7 mg/dL Normal 7.6-11.0 [facility] Comment on above: Performed By: #### L 300.4310, L503.6005, M200.1000, L100.0100, L300.3900, L500.4050 ####[facility] [address] [place], [address] Chloride [Moles/Vol] 104 mmol/L Normal 98-108 [facility] Comment on above: Performed By: #### L 300.4310, L503.6005, M200.1000, L100.0100, L300.3900, L500.4050 ####[facility] [address] [place], [address] CO2 [Moles/Vol] 22.4 mmol/L Normal 21.0-32.0 [facility] Comment on above: Performed By: #### L 300.4310, L503.6005, M200.1000, L100.0100, L300.3900, L500.4050 ####[facility] [address] [place], [address] Creatinine [Mass/Vol] 1.04 mg/dL Normal 0.70-1.20 [facility] Comment on above: Performed By: #### L 300.4310, L503.6005, M200.1000, L100.0100, L300.3900, L500.4050 ####[facility] [address] [place], [address] ECRCL 79.39 ml/min Normal 50-250 [facility] Comment on above: Performed By: #### L 300.4310, L503.6005, M200.1000, L100.0100, L300.3900, L500.4050 ####[facility] [address] [place], [address] GAP 14 Normal 5-15 [facility] Comment on above: Performed By: #### L 300.4310, L503.6005, M200.1000, L100.0100, L300.3900, L500.4050 ####[facility] [address] [place], [address] GFR/1.73 sq M.predicted among non-blacks MDRD (S/P/Bld) [Vol rate/Area] 74 mL/min/{1.73_m2} Normal >60 [facility] Comment on above: Result Comment: mL/m in/1.73m2 CKD-EPI Creatinine Equation (2020) Performed By: #### L 300.4310, L503.6005, M200.1000, L100.0100, L300.3900, L500.4050 ####[facility] [address] [place], [address] Globulin (S) [Mass/Vol] 2.3 g/dL Normal 2.2-4.2 [facility] Comment on above: Performed By: #### L 300.4310, L503.6005, M200.1000, L100.0100, L300.3900, L500.4050 ####[facility] [address] [place], [address] Glucose [Mass/Vol] 195 mg/dL High 70-99 [facility] Comment on above: Performed By: #### L 300.4310, L503.6005, M200.1000, L100.0100, L300.3900, L500.4050 ####[facility] [address] [place], [address] Potassium [Moles/Vol] 3.8 mmol/L Normal 3.3-5.1 [facility] Comment on above: Performed By: #### L 300.4310, L503.6005, M200.1000, L100.0100, L300.3900, L500.4050 ####[facility] [address] [place], [address] Sodium [Moles/Vol] 141 mmol/L Normal 133-145 [facility] Comment on above: Performed By: #### L 300.4310, L503.6005, M200.1000, L100.0100, L300.3900, L500.4050 ####[facility] [address] [place], [place], [id number] T PROT 5.8 g/dL Low 5.9-8.4 [facility] Comment on above: Performed By: #### L 300.4310, L503.6005, M200.1000, L100.0100, L300.3900, L500.4050 ####[facility] [address] [place], [address] Urea nitrogen [Mass/Vol] 18 mg/dL Normal 4-19 [facility] Comment on above: Performed By: #### L 300.4310, L503.6005, M200.1000, L100.0100, L300.3900, L500.4050 ####[facility] [address] [place], [place], [address] Emergency Department Summary on 02-02-2025 Emergency Department Summary Normal [facility] Eosinophil percentageOrdered By: Nicholas Galarza on 02-02-2025 Eosinophils/100 WBC (Bld) 0.6 % 0-5 [facility] Erythrocyte Sed Rateon 02-02 SED RATE 23 mm/hr High 0-20 [facility] Comment on above: Performed By: #### L 501.5200, L501.6710, L101.9900 ####[facility] [address] [place], [place], [address] Erythrocyte distribution wid th ratioOrdered By: Nicholas Galarza on 02-02-2025 Erythrocyte distribution width (RBC) [Ratio] 13.6 % 11.6-14.6 [facility] Erythrocyte distribution wid th standard deviationOrdered By: Nicholas Galarza on 02-02-2025 Erythrocyte distribution width (RBC) [Ratio] 42.2 fl 35.1-43.9 [facility] Erythrocyte sedimentation ra teOrdered By: Karen White on 02-02-2025 ESR (Bld) [Velocity] 23 mm/h High 0-20 [facility] Foot 2 Viewson 02-02-2025 Foot 2 Views Normal [facility] Glomerular filtration rate ( GFR) estimation/1.73 sq m using serum, plasma, or whole bOrdered By: Nicholas Galarza on 02-02-2025 GFR/1.73 sq M.predicted among non-blacks MDRD (S/P/Bld) [Vol rate/Area] 74 mL/min/{1.73_m2} >60 [facility] Comment on above: mL/min/1.73m2 CKD-EP I Creatinine Equation (2020) H AND P Exam - [place] 02-02-2025 H&P Exam - Hospitalist Normal [facility] Hematocrit Auto (Bld) [Volum e fraction]Ordered By: Nicholas Galarza on 02-02-2025 Hematocrit (Bld) [Volume fraction] 33.5 % Low 40-54 [facility] Hemoglobin measurementOrdere d By: Nicholas Galarza on 02-02-2025 Hemoglobin (Bld) [Mass/Vol] 10.9 g/dL Low 13.0-16. 5 [facility] Immature granulocytes/100 WB C Auto (Bld)Ordered By: Nicholas Galarza on 02-02-2025 Immature granulocytes/100 WBC (Bld) 0.700 % 0.0-0.9 [facility] Comment on above: IG% - Immature Granu locytes (promyelocytes, myelocytes and metamyelocytes) > 1% indicates that a LEFT SHIFT is Present. International normalized rat io (INR) calculationOrdered By: Nicholas Galarza on 02-02-2025 INR Coag (Bld) [Relative time] 1.4 {INR} [facility] Ketones Test strip Ql (U)Ord ered By: Nicholas Galarza on 02-02-2025 Ketones Ql (U) Negative Negative [facility] Laboratory - Chemistry and C hemistry - challengeOrdered By: Nicholas Galarza on 02-02-2025 AST [Catalytic activity/Vol] 15 U/L <38 [facility] Lactic Acidon 02-02-2025 Lactate [Moles/Vol] 3.1 mmol/L Invalid Interpretation Code 0.0-2.0 [facility] Comment on above: Order Comment: Y Result Comment: Crit ical Result(s) Called at: 2106 by: EVON JONAS??Results read back by same. Performed By: #### L 300.4310, L503.6005, M200.1000, L100.0100, L300.3900, L500.4050 ####[facility] [address] [place], [address] MCV (mean corpuscular volume ) determinationOrdered By: Nicholas Galarza on 02-02-2025 MCV (RBC) [Entitic vol] 85.0 fL 80-94 [facility] Magnesiumon 02-02-2025 Magnesium [Mass/Vol] 0.9 mg/dL Invalid Interpretation Code 1.5-2.2 [facility] Comment on above: Order Comment: Comme nts: may add to ED labs Result Comment: Crit ical Result(s) Called at:2346 by: KIM MARTINEZ??Results read back by same. Performed By: #### L 501.5200, L501.6710, L101.9900 ####[facility] [address] [place], [address] Magnesium measurement (mass/ volume)Ordered By: Karen Aly on 02-02-2025 Magnesium (Unsp spec) [Mass/Vol] 0.9 mg/dL Low 1.5-2.2 [facility] Comment on above: Critical Result(s) C alled at:2346 by: KIM ADRIAN Results read back by same. Mean corpuscular hemoglobin (MCH) determinationOrdered By: Nicholas Galarza on 02-02-2025 MCH (RBC) [Entitic mass] 27.7 pg 27.0-32.0 [facility] Mean corpuscular hemoglobin concentration (MCHC) determinationOrdered By: Nicholas Galarza on 02-02-2025 MCHC (RBC) [Mass/Vol] 32.5 g/dL 32-36 [facility] Mean platelet volume determi nationOrdered By: Nicholas Galarza on 02-02-2025 Platelet mean volume (Bld) [Entitic vol] 9.4 fL 6.2-12.0 [facility] Microscopic analysis of urin e for red blood cells (RBC)Ordered By: Nicholas Galarza on 02-02-2025 Microscopic analysis of urine for red blood cells (RBC) 5-10 SEEN /hpf 0-5 [facility] Monocyte percentageOrdered B y: Nicholas Galarza on 02-02-2025 Monocytes/100 WBC (Bld) 8.7 % 0-10 [facility] Mucus LM Ql (Urine sed)Order ed By: Nicholas Galarza on 02-02-2025 Mucus Ql (Urine sed) 0 SEEN /hpf [facility] Neutrophil percentageOrdered By: Nicholas Galarza on 02-02-2025 Neutrophils/100 WBC (Bld) 86.2 % High 47-70 [facility] Nitrite Test strip Ql (U)Ord ered By: Nicholas Galarza on 02-02-2025 Nitrite Ql (U) Negative Negative [facility] Nucleated red blood cell per centageOrdered By: Nicholas Galarza on 02-02-2025 Nucleated RBC/100 WBC (Bld) [Ratio] 0 % 0-5 [facility] Partial Thromboplast Timeon 02-02-2025 aPTT Coag (Bld) [Time] 34.0 s Normal 24.1-36.2 [facility] Comment on above: Performed By: #### L 300.4310, L503.6005, M200.1000, L100.0100, L300.3900, L500.4050 ####[facility] [address] [place], [place], [id number] Platelet countOrdered By: Jose Juan Galarza on 02-02-2025 Platelets (Bld) [#/Vol] 203 10*3/uL 150-450 [facility] Potassium measurement (mass/ volume)Ordered By: Nicholas Galarza on 02-02-2025 Potassium (Unsp spec) [Mass/Vol] 3.8 mmol/L 3.3-5.1 [facility] Protein Test strip Ql (U)Ord ered By: Nicholas Galarza on 02-02-2025 Protein Ql (U) 30 mg/dl High Negative [facility] Prothrombin Time w/INRon 07- 22-2025 INR Coag (PPP) [Relative time] 1.4 {INR} Normal [facility] Comment on above: Performed By: #### L 300.4310, L503.6005, M200.1000, L100.0100, L300.3900, L500.4050 ####[facility] [facility] [address] [place], [place], [address](069) PT Coag (PPP) [Time] 17.3 s High 11.7-14.9 [facility] Comment on above: Performed By: #### L 300.4310, L503.6005, M200.1000, L100.0100, L300.3900, L500.4050 ####[facility] [address] [place], [place], [id number] Prothrombin timeOrdered By: Nicholas Galarza on 02-02-2025 PT Coag (PPP) [Time] 17.3 s High 11.7-14.9 [facility] RBC Auto (Bld) [#/Vol]Ordere d By: Nicholas Galarza on 02-02-2025 RBC (Bld) [#/Vol] 3.94 10*6/uL Low 4.6-6.2 [facility] Serum creatinine measurement (mass/volume)Ordered By: Nicholas Galarza on 02-02-2025 Creatinine [Mass/Vol] 1.04 mg/dL 0.70-1.20 [facility] Serum globulin measurementOr dered By: Nicholas Galarza on 02-02-2025 Globulin (S) [Mass/Vol] 2.3 g/dL 2.2-4.2 [facility] Serum glucose measurement (m ass/volume)Ordered By: Nicholas Galarza on 02-02-2025 Glucose [Mass/Vol] 195 mg/dL High 70-99 [facility] Serum or plasma C reactive p rotein measurement (mass/volume)Ordered By: Karen Aly on 02-02-2025 CRP [Mass/Vol] 94.50 mg/L High 0.0-3.0 [facility] Serum or plasma alanine davis otransferase (ALT) measurementOrdered By: Nicholas Galarza on 02-02-2025 ALT [Catalytic activity/Vol] 10 U/L <47 [facility] Serum or plasma albumin antoine urement (mass/volume)Ordered By: Nicholas Galarza on 02-02-2025 Albumin [Mass/Vol] 3.5 g/dL 3.4-4.8 [facility] Serum or plasma albumin/glob ulin mass ratioOrdered By: Nicholas Galarza on 02-02-2025 Albumin/Globulin [Mass ratio] 1.5 {ratio} 0.9-2.4 [facility] Serum or plasma alkaline marilin sphatase measurementOrdered By: Nicholas Galarza on 02-02-2025 ALP [Catalytic activity/Vol] 115 U/L 40-129 [facility] Serum or plasma calcium antoine urement (mass/volume)Ordered By: Nicholas Galarza on 02-02-2025 Calcium [Mass/Vol] 8.7 mg/dL 7.6-11.0 [facility] Serum or plasma urea nitroge n measurement (mass/volume)Ordered By: Nicholas Galarza on 02-02-2025 Urea nitrogen [Mass/Vol] 18 mg/dL 4-19 [facility] Sodium levelOrdered By: Supriya Galarza on 02-02-2025 Sodium [Moles/Vol] 141 mmol/L 133-145 [facility] Squamous epithelial cells de tection in urine sediment by light microscopyOrdered By: Nicholas Galarza on 02-02-2025 Epithelial cells.squamous LM Ql (Urine sed) 0-5 SEEN /hpf 0-5 [facility] Total proteinOrdered By: Hermes Galarza on 02-02-2025 Protein [Mass/Vol] 5.8 g/dL Low 5.9-8.4 [facility] Urinalysis, Completeon 02-02 BACTERIA 1+ /hpf Normal None Seen [facility] Comment on above: Order Comment: LEILA TER SPECIMEN Performed By: #### M 100.2200, L400.0001 ####[facility] [address] [place], [place], [id number] EPI,SQUAMOUS 0-5 SEEN Normal 0-5 [facility] Comment on above: Order Comment: LEILA TER SPECIMEN Performed By: #### M 100.2200, L400.0001 ####[facility] [address] [place], [address] RBC 5-10 SEEN Normal 0-5 [facility] Comment on above: Order Comment: LEILA TER SPECIMEN Performed By: #### M 100.2200, L400.0001 ####[facility] [address] [place], [address] WBC 5-10 SEEN Normal 0-5 [facility] Comment on above: Order Comment: LEILA TER SPECIMEN Performed By: #### M 100.2200, L400.0001 ####[facility] [address] [place], [address] Mucus Ql (Urine sed) 0 SEEN Normal [facility] Comment on above: Order Comment: LEILA TER SPECIMEN Performed By: #### M 100.2200, L400.0001 ####[facility] [address] [place], [address] Urine Legionella pneumophila antigen detectionOrdered By: Karen White on 02-02-2025 L. pneumophila Ag Ql (U) [facility] Urine clarityOrdered By: Hermes Galarza on 02-02-2025 Clarity (U) Clear Clear [facility] Urine color determinationOrd ered By: Nicholas Galarza on 02-02-2025 Color (U) Yellow Yellow [facility] Urine cultureOrdered By: Hermes Galarza on 02-02-2025 Bacteria identified Cx Nom (U) Culture exhibits no growth. [facility] Urine glucose detectionOrder ed By: Nicholas Galarza on 02-02-2025 Glucose Ql (U) 250 mg/dl High Normal [facility] Urine leukocyte esterase det ection by dipstickOrdered By: Nicholas Galarza on 02-02-2025 Leukocyte esterase Test strip Ql (U) Negative Negative [facility] Urine pHOrdered By: Nicholas ron on 02-02-2025 pH (U) 5.0 [pH] 5.0 - 8.0 [facility] Urine sediment bacteria coun t by microscopy (number/high power field)Ordered By: Nicholas Galarza on 02-02-2025 Bacteria LM.HPF (Urine sed) [#/Area] 1 /[HPF] None Seen [facility] Urine specific gravity measu rementOrdered By: Nicholas Galarza on 02-02-2025 Specific gravity (U) [Rel density] 1.015 1.002-1.03 0 [facility] Urine urobilinogen measureme ntOrdered By: Nicholas Galarza on 02-02-2025 Urobilinogen Ql (U) Normal mg/dl Normal [facility] White blood cell (WBC) count Ordered By: Nicholas Galarza on 02-02-2025 WBC (Bld) [#/Vol] 13.9 10*3/uL High 4.4-11.0 [facility] White blood cell countOrdere d By: Nicholas Galarza on 02-02-2025 White blood cell count 5-10 SEEN /hpf 0-5 [facility] Anion gap in Serum or Plasma Ordered By: Walter Becker on 12-22-2024 Anion gap [Moles/Vol] 10 mmol/L 5-15 [facility] Automated blood erythrocyte countOrdered By: Walter Becker on 12-22-2024 RBC (Bld) [#/Vol] 4.43 10*6/uL Low 4.6-6.2 [facility] Comment on above: Order Comment: 215.2 Performed By: #### L 100.0500, L500.4050, L501.9985 ####[facility] [address] [place], [address] Automated blood hematocrit ( percentage)Ordered By: Walter Becker on 12-22-2024 Hematocrit (Bld) [Volume fraction] 37.9 % Low 40-54 [facility] Comment on above: Order Comment: 215.2 Performed By: #### L 100.0500, L500.4050, L501.9985 ####[facility] [address] [place], [address] BUN/creatinine ratioOrdered By: Walter Becker on 12-22-2024 Urea nitrogen/Creatinine [Mass ratio] 19.8 mg/mg 10- [facility] Bilirubin, totalOrdered By: Walter Becker on 12-22-2024 Bilirubin [Mass/Vol] 0.43 mg/dL 0.00-1.30 [facility] CBC-Complete Blood Cnt No Di ffon 12-22-2024 RDW SD 41.9 fl Normal 35.1-43.9 [facility] Comment on above: Order Comment: 215.2 Performed By: #### L 100.0500, L500.4050, L501.9985 ####[facility] [address] [place], [address] Carbon dioxide, total [Moles /volume] in Central venous bloodOrdered By: Walter Becker on 12-22-2024 CO2 [Moles/Vol] 26.7 mmol/L 21.0-32.0 [facility] Chloride assayOrdered By: Horner on 12-22-2024 Chloride [Moles/Vol] 103 mmol/L 98-108 [facility] Comprehensive Metabolic Prof ilon 12-22-2024 Albumin [Mass/Vol] 3.6 g/dL Normal 3.4-4.8 [facility] Comment on above: Order Comment: 215.2 Performed By: #### L 100.0500, L500.4050, L501.9985 ####[facility] [address] [place], [address] Albumin/Globulin [Mass ratio] 1.7 {ratio} Normal 0.9-2.4 [facility] Comment on above: Order Comment: 215.2 Performed By: #### L 100.0500, L500.4050, L501.9985 ####[facility] [address] [place], [address] ALK PHOS 104 U/L Normal 40-129 [facility] Comment on above: Order Comment: 215.2 Performed By: #### L 100.0500, L500.4050, L501.9985 ####[facility] [address] [place], [address] ALT [Catalytic activity/Vol] 13 U/L Normal <=46 [facility] Comment on above: Order Comment: 215.2 Performed By: #### L 100.0500, L500.4050, L501.9985 ####[facility] [address] [place], [address] AST [Catalytic activity/Vol] 14 U/L Normal <=37 [facility] Comment on above: Order Comment: 215.2 Performed By: #### L 100.0500, L500.4050, L501.9985 ####[facility] [address] [place], [address] Bilirubin [Mass/Vol] 0.43 mg/dL Normal 0.00-1.30 [facility] Comment on above: Order Comment: 215.2 Performed By: #### L 100.0500, L500.4050, L501.9985 ####[facility] [address] [place], [address] BUN/CRE 19.8 RATIO Normal 10-20 [facility] Comment on above: Order Comment: 215.2 Performed By: #### L 100.0500, L500.4050, L501.9985 ####[facility] [address] [place], [address] Calcium [Mass/Vol] 9.5 mg/dL Normal 7.6-11.0 [facility] Comment on above: Order Comment: 215.2 Performed By: #### L 100.0500, L500.4050, L501.9985 ####[facility] [address] [place], [address] Chloride [Moles/Vol] 103 mmol/L Normal 98-108 [facility] Comment on above: Order Comment: 215.2 Performed By: #### L 100.0500, L500.4050, L501.9985 ####[facility] [address] [place], [address] CO2 [Moles/Vol] 26.7 mmol/L Normal 21.0-32.0 [facility] Comment on above: Order Comment: 215.2 Performed By: #### L 100.0500, L500.4050, L501.9985 ####[facility] [address] [place], [address] Creatinine [Mass/Vol] 1.04 mg/dL Normal 0.70-1.20 [facility] Comment on above: Order Comment: 215.2 Performed By: #### L 100.0500, L500.4050, L501.9985 ####[facility] [address] [place], [address] GAP 10 Normal 5-15 [facility] Comment on above: Order Comment: 215.2 Performed By: #### L 100.0500, L500.4050, L501.9985 ####[facility] [address] [place], [address] GFR/1.73 sq M.predicted among non-blacks MDRD (S/P/Bld) [Vol rate/Area] 74 mL/min/{1.73_m2} Normal >60 [facility] Comment on above: Order Comment: 215.2 Result Comment: mL/m in/1.73m2 CKD-EPI Creatinine Equation (2020) Performed By: #### L 100.0500, L500.4050, L501.9985 ####[facility] [address] [place], [address] Globulin (S) [Mass/Vol] 2.2 g/dL Normal 2.2-4.2 [facility] Comment on above: Order Comment: 215.2 Performed By: #### L 100.0500, L500.4050, L501.9985 ####[facility] [address] [place], [address] Glucose [Mass/Vol] 131 mg/dL High 70-99 [facility] Comment on above: Order Comment: 215.2 Performed By: #### L 100.0500, L500.4050, L501.9985 ####[facility] [address] [place], [address] Potassium [Moles/Vol] 4.2 mmol/L Normal 3.3-5.1 [facility] Comment on above: Order Comment: 215.2 Performed By: #### L 100.0500, L500.4050, L501.9985 ####[facility] [address] [place], [address] Sodium [Moles/Vol] 141 mmol/L Normal 133-145 [facility] Comment on above: Order Comment: 215.2 Performed By: #### L 100.0500, L500.4050, L501.9985 ####[facility] [address] [place], [address] T PROT 5.8 g/dL Low 5.9-8.4 [facility] Comment on above: Order Comment: 215.2 Performed By: #### L 100.0500, L500.4050, L501.9985 ####[facility] [address] [place], [address] Urea nitrogen [Mass/Vol] 21 mg/dL High 4-19 [facility] Comment on above: Order Comment: 215.2 Performed By: #### L 100.0500, L500.4050, L501.9985 ####[facility] [address] [place], [address] Erythrocyte distribution wid th ratioOrdered By: Walter Becker on 12-22-2024 Erythrocyte distribution width (RBC) [Ratio] 13.5 % Normal 11.6-14.6 [facility] Comment on above: Order Comment: 215.2 Performed By: #### L 100.0500, L500.4050, L501.9985 ####[facility] [address] [place], [place], [address] Erythrocyte distribution wid th standard deviationOrdered By: Walter Becker on 12-22-2024 Erythrocyte distribution width (RBC) [Ratio] 41.9 fl 35.1-43.9 [facility] Glomerular filtration rate ( GFR) estimation/1.73 sq m using serum, plasma, or whole bOrdered By: Walter Becker on 12-22-2024 GFR/1.73 sq M.predicted among non-blacks MDRD (S/P/Bld) [Vol rate/Area] 74 mL/min/{1.73_m2} >60 [facility] Comment on above: mL/min/1.73m2 CKD-EP I Creatinine Equation (2020) Hemoglobin A1con 12-22-2024 HbA1c (Bld) [Mass fraction] 7.0 % High <=5.6 [facility] Comment on above: Order Comment: 215.2 Result Comment: Norm al < 5.7 % Prediabetic 5.7 - 6.4 % Diabetic >or= 6.5 % Please note range changes. Performed By: #### L 100.0500, L500.4050, L501.9985 ####[facility] [address] [place], [place], [address] Hemoglobin A1c percentageOrd ered By: Walter Becker on 12-22-2024 HbA1c (Bld) [Mass fraction] 7.0 % High <5.7 [facility] Comment on above: Normal < 5.7 % Predi abetic 5.7 - 6.4 % Diabetic >or= 6.5 % Please note range changes. Hemoglobin measurementOrdere d By: Walter Becker on 12-22-2024 Hemoglobin (Bld) [Mass/Vol] 12.4 g/dL Low 13.0-16. 5 [facility] Comment on above: Order Comment: 215.2 Performed By: #### L 100.0500, L500.4050, L501.9985 ####[facility] [address] [place], [address] Laboratory - Chemistry and C hemistry - challengeOrdered By: Walter Becker on 12-22-2024 AST [Catalytic activity/Vol] 14 U/L <38 [facility] MCV (mean corpuscular volume ) determinationOrdered By: Walter Becker on 12-22-2024 MCV (RBC) [Entitic vol] 85.6 fL Normal 80-94 [facility] Comment on above: Order Comment: 215.2 Performed By: #### L 100.0500, L500.4050, L501.9985 ####[facility] [address] [place], [address] Mean corpuscular hemoglobin (MCH) determinationOrdered By: Walter Becker on 12-22-2024 MCH (RBC) [Entitic mass] 28.0 pg Normal 27.0-32.0 [facility] Comment on above: Order Comment: 215.2 Performed By: #### L 100.0500, L500.4050, L501.9985 ####[facility] [address] [place], [address] Mean corpuscular hemoglobin concentration (MCHC) determinationOrdered By: Walter Becker on 12-22-2024 MCHC (RBC) [Mass/Vol] 32.7 g/dL Normal 32-36 [facility] Comment on above: Order Comment: 215.2 Performed By: #### L 100.0500, L500.4050, L501.9985 ####[facility] [address] [place], [address] Mean platelet volume determi nationOrdered By: Walter Becker on 12-22-2024 Platelet mean volume (Bld) [Entitic vol] 9.5 fL Normal 6.2-12.0 [facility] Comment on above: Order Comment: 215.2 Performed By: #### L 100.0500, L500.4050, L501.9985 ####[facility] [address] [place], [place], [address] No Panel InformationOrdered By: Walter Becker on 12-22-2024 14 U/L <38 [facility] Platelet countOrdered By: Horner on 12-22-2024 Platelets (Bld) [#/Vol] 214 10*3/uL Normal 150-450 [facility] Comment on above: Order Comment: 215.2 Performed By: #### L 100.0500, L500.4050, L501.9985 ####[facility] [address] [place], [place], [id number] Potassium measurement (mass/ volume)Ordered By: Walter Becker on 12-22-2024 Potassium (Unsp spec) [Mass/Vol] 4.2 mmol/L 3.3-5.1 [facility] Serum creatinine measurement (mass/volume)Ordered By: Walter Becker on 12-22-2024 Creatinine [Mass/Vol] 1.04 mg/dL 0.70-1.20 [facility] Serum globulin measurementOr dered By: Walter Becker on 12-22-2024 Globulin (S) [Mass/Vol] 2.2 g/dL 2.2-4.2 [facility] Serum glucose measurement (m ass/volume)Ordered By: Walter Becker on 12-22-2024 Glucose [Mass/Vol] 131 mg/dL High 70-99 [facility] Serum or plasma alanine davis otransferase (ALT) measurementOrdered By: Walter Becker on 12-22-2024 ALT [Catalytic activity/Vol] 13 U/L <47 [facility] Serum or plasma albumin antoine urement (mass/volume)Ordered By: Walter Becker on 12-22-2024 Albumin [Mass/Vol] 3.6 g/dL 3.4-4.8 [facility] Serum or plasma albumin/glob ulin mass ratioOrdered By: Walter Becker on 12-22-2024 Albumin/Globulin [Mass ratio] 1.7 {ratio} 0.9-2.4 [facility] Serum or plasma alkaline marilin sphatase measurementOrdered By: Walter Becker on 12-22-2024 ALP [Catalytic activity/Vol] 104 U/L 40-129 [facility] Serum or plasma calcium antoine urement (mass/volume)Ordered By: Walter Becker on 12-22-2024 Calcium [Mass/Vol] 9.5 mg/dL 7.6-11.0 [facility] Serum or plasma urea nitroge n measurement (mass/volume)Ordered By: Walter Becker on 12-22-2024 Urea nitrogen [Mass/Vol] 21 mg/dL High 4-19 [facility] Sodium levelOrdered By: aWlter Becker on 12-22-2024 Sodium [Moles/Vol] 141 mmol/L 133-145 [facility] Total proteinOrdered By: Crystal Becker on 12-22-2024 Protein [Mass/Vol] 5.8 g/dL Low 5.9-8.4 [facility] White blood cell (WBC) count Ordered By: Walter Becker on 12-22-2024 WBC (Bld) [#/Vol] 9.4 10*3/uL Normal 4.4-11.0 [facility] Comment on above: Order Comment: 215.2 Performed By: #### L 100.0500, L500.4050, L501.9980 ####[facility] [address] [place], [place], [address] Vitamin D,25 Hydroxyon 12-16 Vitamin D 25-OH 31.8 ng/mL Normal 30-100 [facility] Comment on above: Order Comment: 215.2 Result Comment: Laure min D StatusDeficiency: <20 ng/mL (50nmol/L)Insufficiency: 20-30 ng/mL (50-75 nmol/L)Sufficiency: 30-100 ng/mL (75-250 nmol/L)Toxicity: >100 ng/mL (>250 nmol/L) Performed By: #### L 506.1001 ####[facility] [address] [place], [address] Urine Cultureon 11-25-2024 URC Culture exhibits no growth. Normal [facility] Comment on above: Performed By: #### L 400.0001, L100.0500, M100.2200, L500.4050 ####[facility] [address] [place], [address] Anion gap in Serum or Plasma Ordered By: Walter Becker on 11-24-2024 Anion gap [Moles/Vol] 14 mmol/L 5-15 [facility] BUN/creatinine ratioOrdered By: Walter Becker on 11-24-2024 Urea nitrogen/Creatinine [Mass ratio] 19.5 mg/mg 10- [facility] Bilirubin Test strip Ql (U)O rdered By: Walter Becker on 11-24-2024 Bilirubin Ql (U) Negative Negative [facility] Bilirubin, totalOrdered By: Walter Becker on 11-24-2024 Bilirubin [Mass/Vol] 0.34 mg/dL 0.00-1.30 [facility] CBC-Complete Blood Cnt No Di ffon 11-24-2024 Erythrocyte distribution width (RBC) [Ratio] 13.4 % Normal 11.6-14.6 [facility] Comment on above: Order Comment: 215.2 Performed By: #### L 400.0001, L100.0500, M100.2200, L500.4050 ####[facility] [address] [place], [address] Hematocrit (Bld) [Volume fraction] 38.0 % Low 40-54 [facility] Comment on above: Order Comment: 215.2 Performed By: #### L 400.0001, L100.0500, M100.2200, L500.4050 ####[facility] [address] [place], [address] Hemoglobin (Bld) [Mass/Vol] 12.1 g/dL Low 13.0-16. 5 [facility] Comment on above: Order Comment: 215.2 Performed By: #### L 400.0001, L100.0500, M100.2200, L500.4050 ####[facility] [address] [place], [address] MCH (RBC) [Entitic mass] 27.6 pg Normal 27.0-32.0 [facility] Comment on above: Order Comment: 215.2 Performed By: #### L 400.0001, L100.0500, M100.2200, L500.4050 ####[facility] [address] [place], [address] MCHC (RBC) [Mass/Vol] 31.8 g/dL Low 32-36 [facility] Comment on above: Order Comment: 215.2 Performed By: #### L 400.0001, L100.0500, M100.2200, L500.4050 ####[facility] [address] [place], [address] MCV (RBC) [Entitic vol] 86.6 fL Normal 80-94 [facility] Comment on above: Order Comment: 215.2 Performed By: #### L 400.0001, L100.0500, M100.2200, L500.4050 ####[facility] [address] [place], [address] Platelet mean volume (Bld) [Entitic vol] 9.4 fL Normal 6.2-12.0 [facility] Comment on above: Order Comment: 215.2 Performed By: #### L 400.0001, L100.0500, M100.2200, L500.4050 ####[facility] [address] [place], [address] Platelets (Bld) [#/Vol] 200 10*3/uL Normal 150-450 [facility] Comment on above: Order Comment: 215.2 Performed By: #### L 400.0001, L100.0500, M100.2200, L500.4050 ####[facility] [address] [place], [address] RBC (Bld) [#/Vol] 4.39 10*6/uL Low 4.6-6.2 [facility] Comment on above: Order Comment: 215.2 Performed By: #### L 400.0001, L100.0500, M100.2200, L500.4050 ####[facility] [address] [place], [address] RDW SD 41.4 fl Normal 35.1-43.9 [facility] Comment on above: Order Comment: 215.2 Performed By: #### L 400.0001, L100.0500, M100.2200, L500.4050 ####[facility] [address] [place], [address] WBC (Bld) [#/Vol] 8.9 10*3/uL Normal 4.4-11.0 [facility] Comment on above: Order Comment: 215.2 Performed By: #### L 400.0001, L100.0500, M100.2200, L500.4050 ####[facility] [address] [place], [address] Carbon dioxide, total [Moles /volume] in Central venous bloodOrdered By: Walter Becker on 11-24-2024 CO2 [Moles/Vol] 21.7 mmol/L 21.0-32.0 [facility] Chloride assayOrdered By: Horner on 11-24-2024 Chloride [Moles/Vol] 105 mmol/L 98-108 [facility] Comprehensive Metabolic Prof ilon 11-24-2024 Albumin [Mass/Vol] 3.3 g/dL Low 3.4-4.8 [facility] Comment on above: Order Comment: 215.2 Performed By: #### L 400.0001, L100.0500, M100.2200, L500.4050 ####[facility] [address] [place], [address] Albumin/Globulin [Mass ratio] 1.6 {ratio} Normal 0.9-2.4 [facility] Comment on above: Order Comment: 215.2 Performed By: #### L 400.0001, L100.0500, M100.2200, L500.4050 ####[facility] [address] [place], [address] ALK PHOS 101 U/L Normal 40-129 [facility] Comment on above: Order Comment: 215.2 Performed By: #### L 400.0001, L100.0500, M100.2200, L500.4050 ####[facility] [address] [place], [address] ALT [Catalytic activity/Vol] 14 U/L Normal <=46 [facility] Comment on above: Order Comment: 215.2 Performed By: #### L 400.0001, L100.0500, M100.2200, L500.4050 ####[facility] [address] [place], [address] AST [Catalytic activity/Vol] 16 U/L Normal <=37 [facility] Comment on above: Order Comment: 215.2 Performed By: #### L 400.0001, L100.0500, M100.2200, L500.4050 ####[facility] [address] [place], [address] Bilirubin [Mass/Vol] 0.34 mg/dL Normal 0.00-1.30 [facility] Comment on above: Order Comment: 215.2 Performed By: #### L 400.0001, L100.0500, M100.2200, L500.4050 ####[facility] [address] [place], [address] BUN/CRE 19.5 RATIO Normal 10-20 [facility] Comment on above: Order Comment: 215.2 Performed By: #### L 400.0001, L100.0500, M100.2200, L500.4050 ####[facility] [address] [place], [address] Calcium [Mass/Vol] 8.9 mg/dL Normal 7.6-11.0 [facility] Comment on above: Order Comment: 215.2 Performed By: #### L 400.0001, L100.0500, M100.2200, L500.4050 ####[facility] [address] [place], [address] Chloride [Moles/Vol] 105 mmol/L Normal 98-108 [facility] Comment on above: Order Comment: 215.2 Performed By: #### L 400.0001, L100.0500, M100.2200, L500.4050 ####[facility] [address] [place], [address] CO2 [Moles/Vol] 21.7 mmol/L Normal 21.0-32.0 [facility] Comment on above: Order Comment: 215.2 Performed By: #### L 400.0001, L100.0500, M100.2200, L500.4050 ####[facility] [address] [place], [address] Creatinine [Mass/Vol] 1.15 mg/dL Normal 0.70-1.20 [facility] Comment on above: Order Comment: 215.2 Performed By: #### L 400.0001, L100.0500, M100.2200, L500.4050 ####[facility] [address] [place], [address] GAP 14 Normal 5-15 [facility] Comment on above: Order Comment: 215.2 Performed By: #### L 400.0001, L100.0500, M100.2200, L500.4050 ####[facility] [address] [place], [address] GFR/1.73 sq M.predicted among non-blacks MDRD (S/P/Bld) [Vol rate/Area] 66 mL/min/{1.73_m2} Normal >60 [facility] Comment on above: Order Comment: 215.2 Result Comment: mL/m in/1.73m2 CKD-EPI Creatinine Equation (2020) Performed By: #### L 400.0001, L100.0500, M100.2200, L500.4050 ####[facility] [address] [place], [address] Globulin (S) [Mass/Vol] 2.0 g/dL Low 2.2-4.2 [facility] Comment on above: Order Comment: 215.2 Performed By: #### L 400.0001, L100.0500, M100.2200, L500.4050 ####[facility] [address] [place], [address] Glucose [Mass/Vol] 139 mg/dL High 70-99 [facility] Comment on above: Order Comment: 215.2 Performed By: #### L 400.0001, L100.0500, M100.2200, L500.4050 ####[facility] [address] [place], [address] Potassium [Moles/Vol] 4.2 mmol/L Normal 3.3-5.1 [facility] Comment on above: Order Comment: 215.2 Performed By: #### L 400.0001, L100.0500, M100.2200, L500.4050 ####[facility] [address] [place], [address] Sodium [Moles/Vol] 141 mmol/L Normal 133-145 [facility] Comment on above: Order Comment: 215.2 Performed By: #### L 400.0001, L100.0500, M100.2200, L500.4050 ####[facility] [address] [place], [address] T PROT 5.3 g/dL Low 5.9-8.4 [facility] Comment on above: Order Comment: 215.2 Performed By: #### L 400.0001, L100.0500, M100.2200, L500.4050 ####[facility] [address] [place], [address] Urea nitrogen [Mass/Vol] 22 mg/dL High 4-19 [facility] Comment on above: Order Comment: 215.2 Performed By: #### L 400.0001, L100.0500, M100.2200, L500.4050 ####[facility] [address] [place], [address] Erythrocyte distribution wid th ratioOrdered By: Walter Becker on 11-24-2024 Erythrocyte distribution width (RBC) [Ratio] 13.4 % 11.6-14.6 [facility] Erythrocyte distribution wid th standard deviationOrdered By: Walter Becker on 11-24-2024 Erythrocyte distribution width (RBC) [Ratio] 41.4 fl 35.1-43.9 [facility] Glomerular filtration rate ( GFR) estimation/1.73 sq m using serum, plasma, or whole bOrdered By: Walter Becker on 11-24-2024 GFR/1.73 sq M.predicted among non-blacks MDRD (S/P/Bld) [Vol rate/Area] 66 mL/min/{1.73_m2} >60 [facility] Comment on above: mL/min/1.73m2 CKD-EP I Creatinine Equation (2020) Hematocrit Auto (Bld) [Volum e fraction]Ordered By: Walter Becker on 11-24-2024 Hematocrit (Bld) [Volume fraction] 38.0 % Low 40-54 [facility] Hemoglobin measurementOrdere d By: Walter Becker on 11-24-2024 Hemoglobin (Bld) [Mass/Vol] 12.1 g/dL Low 13.0-16. 5 [facility] Ketones Test strip Ql (U)Ord ered By: Walter Becker on 11-24-2024 Ketones Ql (U) Negative Negative [facility] Laboratory - Chemistry and C hemistry - challengeOrdered By: Walter Becker on 11-24-2024 AST [Catalytic activity/Vol] 16 U/L <38 [facility] MCV (mean corpuscular volume ) determinationOrdered By: Walter Becker on 11-24-2024 MCV (RBC) [Entitic vol] 86.6 fL 80-94 [facility] Mean corpuscular hemoglobin (MCH) determinationOrdered By: Walter Becker on 11-24-2024 MCH (RBC) [Entitic mass] 27.6 pg 27.0-32.0 [facility] Mean corpuscular hemoglobin concentration (MCHC) determinationOrdered By: Walter Becker on 11-24-2024 MCHC (RBC) [Mass/Vol] 31.8 g/dL Low 32-36 [facility] Mean platelet volume determi nationOrdered By: Walter Becker on 11-24-2024 Platelet mean volume (Bld) [Entitic vol] 9.4 fL 6.2-12.0 [facility] Microscopic analysis of urin e for red blood cells (RBC)Ordered By: Walter Becker on 11-24-2024 Microscopic analysis of urine for red blood cells (RBC) 0 SEEN /hpf 0-5 [facility] Mucus LM Ql (Urine sed)Order ed By: Walter Becker on 11-24-2024 Mucus Ql (Urine sed) 0 SEEN /hpf [facility] Nitrite Test strip Ql (U)Ord ered By: Walter Becker on 11-24-2024 Nitrite Ql (U) Negative Negative [facility] No Panel InformationOrdered By: Walter Becker on 11-24-2024 16 U/L <38 [facility] Platelet countOrdered By: Horner on 11-24-2024 Platelets (Bld) [#/Vol] 200 10*3/uL 150-450 [facility] Potassium measurement (mass/ volume)Ordered By: Walter Becker on 11-24-2024 Potassium (Unsp spec) [Mass/Vol] 4.2 mmol/L 3.3-5.1 [facility] Protein Test strip Ql (U)Ord ered By: Walter Becker on 11-24-2024 Protein Ql (U) Negative Negative [facility] RBC Auto (Bld) [#/Vol]Ordere d By: Walter Becker on 11-24-2024 RBC (Bld) [#/Vol] 4.39 10*6/uL Low 4.6-6.2 [facility] Serum creatinine measurement (mass/volume)Ordered By: Walter Becker on 11-24-2024 Creatinine [Mass/Vol] 1.15 mg/dL 0.70-1.20 [facility] Serum globulin measurementOr dered By: Walter Becker on 11-24-2024 Globulin (S) [Mass/Vol] 2.0 g/dL Low 2.2-4.2 [facility] Serum glucose measurement (m ass/volume)Ordered By: Walter Becker on 11-24-2024 Glucose [Mass/Vol] 139 mg/dL High 70-99 [facility] Serum or plasma alanine davis otransferase (ALT) measurementOrdered By: Walter Becker on 11-24-2024 ALT [Catalytic activity/Vol] 14 U/L <47 [facility] Serum or plasma albumin antoine urement (mass/volume)Ordered By: Walter Becker on 11-24-2024 Albumin [Mass/Vol] 3.3 g/dL Low 3.4-4.8 [facility] Serum or plasma albumin/glob ulin mass ratioOrdered By: Walter Becker on 11-24-2024 Albumin/Globulin [Mass ratio] 1.6 {ratio} 0.9-2.4 [facility] Serum or plasma alkaline marilin sphatase measurementOrdered By: Walter Becker on 11-24-2024 ALP [Catalytic activity/Vol] 101 U/L 40-129 [facility] Serum or plasma calcium antoine urement (mass/volume)Ordered By: Walter Becker on 11-24-2024 Calcium [Mass/Vol] 8.9 mg/dL 7.6-11.0 [facility] Serum or plasma urea nitroge n measurement (mass/volume)Ordered By: Walter Becker on 11-24-2024 Urea nitrogen [Mass/Vol] 22 mg/dL High 4-19 [facility] Sodium levelOrdered By: Walter Becker on 11-24-2024 Sodium [Moles/Vol] 141 mmol/L 133-145 [facility] Squamous epithelial cells de tection in urine sediment by light microscopyOrdered By: Walter Becker on 11-24-2024 Epithelial cells.squamous LM Ql (Urine sed) 0 SEEN /hpf 0-5 [facility] Total proteinOrdered By: Crystal Becker on 11-24-2024 Protein [Mass/Vol] 5.3 g/dL Low 5.9-8.4 [facility] Urinalysis, Completeon 11-24 WBC 0-5 SEEN Normal 0-5 [facility] Comment on above: Order Comment: LEILA TER SPECIMEN Performed By: #### L 400.0001, L100.0500, M100.2200, L500.4050 ####[facility] [address] [place], [address] BACTERIA 0 SEEN Normal None Seen [facility] Comment on above: Order Comment: LEILA TER SPECIMEN Performed By: #### L 400.0001, L100.0500, M100.2200, L500.4050 ####[facility] [address] [place], [address] EPI,SQUAMOUS 0 SEEN Normal 0-5 [facility] Comment on above: Order Comment: LEILA TER SPECIMEN Performed By: #### L 400.0001, L100.0500, M100.2200, L500.4050 ####[facility] [address] [place], [address] Mucus Ql (Urine sed) 0 SEEN Normal [facility] Comment on above: Order Comment: LEILA TER SPECIMEN Performed By: #### L 400.0001, L100.0500, M100.2200, L500.4050 ####[facility] [address] [place], [address] RBC 0 SEEN Normal 0-5 [facility] Comment on above: Order Comment: LEILA TER SPECIMEN Performed By: #### L 400.0001, L100.0500, M100.2200, L500.4050 ####[facility] [address] [place], [address] Urine clarityOrdered By: Crystal Becker on 11-24-2024 Clarity (U) Clear Clear [facility] Urine color determinationOrd ered By: Walter Becker on 11-24-2024 Color (U) Yellow Yellow [facility] Urine cultureOrdered By: Crystal Becker on 11-24-2024 Bacteria identified Cx Nom (U) Culture exhibits no growth. [facility] Urine glucose detectionOrder ed By: Walter Becker on 11-24-2024 Glucose Ql (U) Normal mg/dl Normal [facility] Urine leukocyte esterase det ection by dipstickOrdered By: Walter Becker on 11-24-2024 Leukocyte esterase Test strip Ql (U) Negative Negative [facility] Urine pHOrdered By: Walter floyd on 11-24-2024 pH (U) 6.0 [pH] 5.0 - 8.0 [facility] Urine sediment bacteria coun t by microscopy (number/high power field)Ordered By: Walter Becker on 11-24-2024 Bacteria LM.HPF (Urine sed) [#/Area] 0 /[HPF] None Seen [facility] Urine specific gravity measu rementOrdered By: Walter Becker on 11-24-2024 Specific gravity (U) [Rel density] 1.010 1.002-1.03 0 [facility] Urine urobilinogen measureme ntOrdered By: Walter Becker on 11-24-2024 Urobilinogen Ql (U) Normal mg/dl Normal [facility] White blood cell (WBC) count Ordered By: Walter Becker on 11-24-2024 WBC (Bld) [#/Vol] 8.9 10*3/uL 4.4-11.0 [facility] White blood cell countOrdere d By: Walter Becker on 11-24-2024 White blood cell count 0-5 SEEN /hpf 0-5 [facility] CNPNon 11-06-2024 CNPN Telephone (4CQ) KIRILLRICHARD Bonilla ([id number]) 1945 M Date Time Provider Department 11/06/24 ABDULAZIZ CALDERA 4CQ During your visit today, we recorded the following information about you: Ann Raymond 11/06/2024 10:55 AM Signed Spoke with spouse as patient is over due for visit with PCP , stated patient is at [facility] in [place]. We did not remove PCP. Abdulaziz Caldera [...] time a week. - blood sugar diagnostic ([facility]) test strip Test blood [...] Status:Closed by AMADA COHN on 11/06/24 Normal [facility] Cardiology Visit Reporton Cardiology Visit Report Normal [facility] Calculated very low density lipoprotein (VLDL) cholesterol measurementOrdered By: Walter Becker on 10-05-2024 VLDL Cholesterol 41 mg/dL High 5-40 [facility] LDL calc ser/plasOrdered By: Walter Becker on 10-05-2024 LDL Cholesterol, Calculated 31 mg/dL [facility] Comment on above: Nxrsiiomya=267-918 m g/dL & Higher Stbw=719 mg/dL or greater Lipid Profileon 10-05-2024 CHOL:HDL 3.37 Normal [facility] Comment on above: Order Comment: 215.2 Performed By: #### L 500.4100 ####[facility] [address] [place], [address] Cholesterol [Mass/Vol] 103 mg/dL Normal <=200 [facility] Comment on above: Order Comment: 215.2 Result Comment: Chol esterol level, Desirable <200 mg/dLBorderline high cholesterol 200-239 mg/dLHigh cholesterol >=240 mg/dLRecommendations of the NCEP Adult Treatment Panel for thefollowing risk-cutoff thresholds for the [place] Americanpulation. Performed By: #### L 500.4100 ####[facility] [address] [place], [address] Cholesterol in HDL [Mass/Vol] 31 mg/dL Low [facility] Comment on above: Order Comment: 215.2 Result Comment: Stephanie onal Cholesterol Education Program (NCEP) guidelines:<40 mg/dL: Low HDL-cholesterol (major risk factor for CHD)>= 60 mg/dL: High HDL-cholesterol (negative risk factor forCHD)HDL-cholesterol is affected by a number of factors, e.g.smoking, exercise, hormones, sex and age. Performed By: #### L 500.4100 ####[facility] [address] [place], [address] Cholesterol in LDL [Mass/Vol] 31 mg/dL Normal [facility] Comment on above: Order Comment: 215.2 Result Comment: Bord pwvngo=299-783 mg/dL Higher Bqht=735 mg/dL or greater Performed By: #### L 500.4100 ####[facility] [address] [place], [address] Cholesterol in VLDL [Mass/Vol] 41 mg/dL High 5-40 [facility] Comment on above: Order Comment: 215.2 Performed By: #### L 500.4100 ####[facility] [address] [place], [address] Triglyceride [Mass/Vol] 207 mg/dL High [facility] Comment on above: Order Comment: 215.2 Result Comment: The drugs N-Acetylcysteine and Metamizole may falselydepress this assay.Normal range: <150 mg/dLBorderline High: 150-199 mg/dLHigh: 200-499 mg/dLVery High: >500 mg/dL Performed By: #### L 500.4100 ####[facility] [address] [place], [address] Screening total cholesterol/ high density lipoprotein (HDL) cholesterol ratioOrdered By: Walter Becker on 10-05-2024 Cholesterol.total/Cholester ol in HDL [Mass ratio] 3.37 {ratio} [facility] Serum or plasma cholesterol in HDL measurement (mass/volume)Ordered By: Walter Becker on 10-05-2024 Cholesterol in HDL [Mass/Vol] 31 mg/dL Low >40 [facility] Comment on above: National Cholesterol Education Program (NCEP) guidelines:<40 mg/dL: Low HDL-cholesterol (major risk factor for CHD)>= 60 mg/dL: High HDL-cholesterol (negative risk factor for CHD)HDL-cholesterol is affected by a number of factors, e.g. smoking, exercise, hormones, sex and age. Serum or plasma cholesterol measurement (mass/volume)Ordered By: Walter Becker on 10-05-2024 Cholesterol [Mass/Vol] 103 mg/dL <201 [facility] Comment on above: Cholesterol level, D esirable <200 mg/dLBorderline high cholesterol 200-239 mg/dLHigh cholesterol >=240 mg/dLRecommendations of the NCEP Adult Treatment Panel for the following risk-cutoff thresholds for the [place] population. Triglycerides measurementOrd ered By: Walter Becker on 10-05-2024 Triglyceride [Mass/Vol] 207 mg/dL High <199 [facility] Comment on above: The drugs N-Acetylcy steine and Metamizole may falsely depress this assay. Normal range: <150 mg/dLBorderline High: 150-199 mg/dLHigh: 200-499 mg/dLVery High: >500 mg/dL Anion gap in Serum or Plasma Ordered By: Walter Becker on 09-29-2024 Anion gap [Moles/Vol] 11 mmol/L 5-15 [facility] BUN/creatinine ratioOrdered By: Walter Becker on 09-29-2024 Urea nitrogen/Creatinine [Mass ratio] 20.5 mg/mg High 10-20 [facility] Bilirubin, totalOrdered By: Walter Becker on 09-29-2024 Bilirubin [Mass/Vol] 0.31 mg/dL 0.00-1.30 [facility] CBC-Complete Blood Cnt No Di ffon 09-29-2024 Erythrocyte distribution width (RBC) [Ratio] 13.7 % Normal 11.6-14.6 [facility] Comment on above: Order Comment: 215.2 Performed By: #### L 500.4050, L501.9985, L100.0500 ####[facility] [address] [place], [address] Hematocrit (Bld) [Volume fraction] 37.0 % Low 40-54 [facility] Comment on above: Order Comment: 215.2 Performed By: #### L 500.4050, L501.9985, L100.0500 ####[facility] [address] [place], [address] Hemoglobin (Bld) [Mass/Vol] 11.8 g/dL Low 13.0-16. 5 [facility] Comment on above: Order Comment: 215.2 Performed By: #### L 500.4050, L501.9985, L100.0500 ####[facility] [address] [place], [address] MCH (RBC) [Entitic mass] 27.9 pg Normal 27.0-32.0 [facility] Comment on above: Order Comment: 215.2 Performed By: #### L 500.4050, L501.9985, L100.0500 ####[facility] [address] [place], [address] MCHC (RBC) [Mass/Vol] 31.9 g/dL Low 32-36 [facility] Comment on above: Order Comment: 215.2 Performed By: #### L 500.4050, L501.9985, L100.0500 ####[facility] [address] [place], [address] MCV (RBC) [Entitic vol] 87.5 fL Normal 80-94 [facility] Comment on above: Order Comment: 215.2 Performed By: #### L 500.4050, L501.9985, L100.0500 ####[facility] [address] [place], [address] Platelet mean volume (Bld) [Entitic vol] 9.6 fL Normal 6.2-12.0 [facility] Comment on above: Order Comment: 215.2 Performed By: #### L 500.4050, L501.9985, L100.0500 ####[facility] [address] [place], [address] Platelets (Bld) [#/Vol] 226 10*3/uL Normal 150-450 [facility] Comment on above: Order Comment: 215.2 Performed By: #### L 500.4050, L501.9985, L100.0500 ####[facility] [address] [place], [address] RBC (Bld) [#/Vol] 4.23 10*6/uL Low 4.6-6.2 [facility] Comment on above: Order Comment: 215.2 Performed By: #### L 500.4050, L501.9985, L100.0500 ####[facility] [address] [place], [address] RDW SD 43.7 fl Normal 35.1-43.9 [facility] Comment on above: Order Comment: 215.2 Performed By: #### L 500.4050, L501.9985, L100.0500 ####[facility] [place] [address] [place], [address] WBC (Bld) [#/Vol] 8.9 10*3/uL Normal 4.4-11.0 [facility] Comment on above: Order Comment: 215.2 Performed By: #### L 500.4050, L501.9985, L100.0500 ####[facility] [address] [place], [address] Carbon dioxide, total [Moles /volume] in Central venous bloodOrdered By: Walter Becker on 09-29-2024 CO2 [Moles/Vol] 25.6 mmol/L 21.0-32.0 [facility] Chloride assayOrdered By: Horner on 09-29-2024 Chloride [Moles/Vol] 104 mmol/L 98-108 [facility] Comprehensive Metabolic Prof ilon 09-29-2024 Albumin [Mass/Vol] 3.6 g/dL Normal 3.4-4.8 [facility] Comment on above: Order Comment: 215.2 Performed By: #### L 500.4050, L501.9985, L100.0500 ####[facility] [address] [place], [address] Albumin/Globulin [Mass ratio] 1.8 {ratio} Normal 0.9-2.4 [facility] Comment on above: Order Comment: 215.2 Performed By: #### L 500.4050, L501.9985, L100.0500 ####[facility] [address] [place], [address] ALK PHOS 101 U/L Normal 40-129 [facility] Comment on above: Order Comment: 215.2 Performed By: #### L 500.4050, L501.9985, L100.0500 ####[facility] [address] [place], [address] ALT [Catalytic activity/Vol] 19 U/L Normal <=46 [facility] Comment on above: Order Comment: 215.2 Performed By: #### L 500.4050, L501.9985, L100.0500 ####[facility] [address] [place], [address] AST [Catalytic activity/Vol] 15 U/L Normal <=37 [facility] Comment on above: Order Comment: 215.2 Performed By: #### L 500.4050, L501.9985, L100.0500 ####[facility] [address] [place], [address] Bilirubin [Mass/Vol] 0.31 mg/dL Normal 0.00-1.30 [facility] Comment on above: Order Comment: 215.2 Performed By: #### L 500.4050, L501.9985, L100.0500 ####[facility] [address] [place], [address] BUN/CRE 20.5 RATIO High 10-20 [facility] Comment on above: Order Comment: 215.2 Performed By: #### L 500.4050, L501.9985, L100.0500 ####[facility] [address] [place], [address] Calcium [Mass/Vol] 9.2 mg/dL Normal 7.6-11.0 [facility] Comment on above: Order Comment: 215.2 Performed By: #### L 500.4050, L501.9985, L100.0500 ####[facility] [address] [place], [address] Chloride [Moles/Vol] 104 mmol/L Normal 98-108 [facility] Comment on above: Order Comment: 215.2 Performed By: #### L 500.4050, L501.9985, L100.0500 ####[facility] [address] [place], [address] CO2 [Moles/Vol] 25.6 mmol/L Normal 21.0-32.0 [facility] Comment on above: Order Comment: 215.2 Performed By: #### L 500.4050, L501.9985, L100.0500 ####[facility] [address] [place], [address] Creatinine [Mass/Vol] 1.10 mg/dL Normal 0.70-1.20 [facility] Comment on above: Order Comment: 215.2 Performed By: #### L 500.4050, L501.9985, L100.0500 ####[facility] [address] [place], [address] GAP 11 Normal 5-15 [facility] Comment on above: Order Comment: 215.2 Performed By: #### L 500.4050, L501.9985, L100.0500 ####[facility] [address] [place], [address] GFR/1.73 sq M.predicted among non-blacks MDRD (S/P/Bld) [Vol rate/Area] 70 mL/min/{1.73_m2} Normal >60 [facility] Comment on above: Order Comment: 215.2 Result Comment: mL/m in/1.73m2 CKD-EPI Creatinine Equation (2020) Performed By: #### L 500.4050, L501.9985, L100.0500 ####[facility] [address] [place], [address] Globulin (S) [Mass/Vol] 2.0 g/dL Low 2.2-4.2 [facility] Comment on above: Order Comment: 215.2 Performed By: #### L 500.4050, L501.9985, L100.0500 ####[facility] [address] [place], [address] Glucose [Mass/Vol] 155 mg/dL High 70-99 [facility] Comment on above: Order Comment: 215.2 Performed By: #### L 500.4050, L501.9985, L100.0500 ####[facility] [address] [place], [address] Potassium [Moles/Vol] 4.2 mmol/L Normal 3.3-5.1 [facility] Comment on above: Order Comment: 215.2 Performed By: #### L 500.4050, L501.9985, L100.0500 ####[facility] [address] [place], [address] Sodium [Moles/Vol] 141 mmol/L Normal 133-145 [facility] Comment on above: Order Comment: 215.2 Performed By: #### L 500.4050, L501.9985, L100.0500 ####[facility] [address] [place], [address] T PROT 5.6 g/dL Low 5.9-8.4 [facility] Comment on above: Order Comment: 215.2 Performed By: #### L 500.4050, L501.9985, L100.0500 ####[facility] [address] [place], [address] Urea nitrogen [Mass/Vol] 23 mg/dL High 4-19 [facility] Comment on above: Order Comment: 215.2 Performed By: #### L 500.4050, L501.9985, L100.0500 ####[facility] [address] [place], [address] Erythrocyte distribution wid th (RBC) [Ratio]Ordered By: Walter Becker on 09-29-2024 Erythrocyte distribution width (RBC) [Entitic vol] 43.7 fL 35.1-43.9 [facility] Erythrocyte distribution wid th ratioOrdered By: Walter Becker on 09-29-2024 Erythrocyte distribution width (RBC) [Ratio] 13.7 % 11.6-14.6 [facility] GFR/1.73 sq M.predicted kimberly g non-blacks MDRD (S/P/Bld) [Vol rate/Area]Ordered By: Walter Becker on 09-29-2024 Estimated GFR (MDRD) Non-Af Amer 70 >60 [facility] Comment on above: mL/min/1.73m2 CKD-EP I Creatinine Equation (2020) Hematocrit Auto (Bld) [Volum e fraction]Ordered By: Walter Becker on 09-29-2024 Hematocrit (Bld) [Volume fraction] 37.0 % Low 40-54 [facility] Hemoglobin A1con 09-29-2024 HbA1c (Bld) [Mass fraction] 6.6 % Normal <=5.6 [facility] Comment on above: Order Comment: 215.2 Performed By: #### L 500.4050, L501.9985, L100.0500 ####[facility] [address] [place], [address] Hemoglobin A1c percentageOrd ered By: Walter Becker on 09-29-2024 HbA1c (Bld) [Mass fraction] 6.6 % >5.7 [facility] Hemoglobin measurementOrdere d By: Walter Becker on 09-29-2024 Hemoglobin (Bld) [Mass/Vol] 11.8 g/dL Low 13.0-16. 5 [facility] Laboratory - Chemistry and C hemistry - challengeOrdered By: Walter Becker on 09-29-2024 AST [Catalytic activity/Vol] 15 U/L <38 [facility] MCV (mean corpuscular volume ) determinationOrdered By: Walter Becker on 09-29-2024 MCV (RBC) [Entitic vol] 87.5 fL 80-94 [facility] Mean corpuscular hemoglobin (MCH) determinationOrdered By: Walter Becker on 09-29-2024 MCH (RBC) [Entitic mass] 27.9 pg 27.0-32.0 [facility] Mean corpuscular hemoglobin concentration (MCHC) determinationOrdered By: Walter Becker on 09-29-2024 MCHC (RBC) [Mass/Vol] 31.9 g/dL Low 32-36 [facility] Mean platelet volume determi nationOrdered By: Walter Becker on 09-29-2024 Platelet mean volume (Bld) [Entitic vol] 9.6 fL 6.2-12.0 [facility] Platelet countOrdered By: Horner on 09-29-2024 Platelets (Bld) [#/Vol] 226 10*3/uL 150-450 [facility] Potassium (Unsp spec) [Mass/ Vol]Ordered By: Walter Becker on 09-29-2024 Potassium [Moles/Vol] 4.2 mmol/L 3.3-5.1 [facility] RBC Auto (Bld) [#/Vol]Ordere d By: Walter Becker on 09-29-2024 RBC (Bld) [#/Vol] 4.23 10*6/uL Low 4.6-6.2 [facility] Serum creatinine measurement (mass/volume)Ordered By: Walter Becker on 09-29-2024 Creatinine [Mass/Vol] 1.10 mg/dL 0.70-1.20 [facility] Serum globulin measurementOr dered By: Walter Becker on 09-29-2024 Globulin (S) [Mass/Vol] 2.0 g/dL Low 2.2-4.2 [facility] Serum glucose measurement (m ass/volume)Ordered By: Walter Becker on 09-29-2024 Glucose [Mass/Vol] 155 mg/dL High 70-99 [facility] Serum or plasma alanine davis otransferase (ALT) measurementOrdered By: Walter Becker on 09-29-2024 ALT [Catalytic activity/Vol] 19 U/L <47 [facility] Serum or plasma albumin antoine urement (mass/volume)Ordered By: Walter Becker on 09-29-2024 Albumin [Mass/Vol] 3.6 g/dL 3.4-4.8 [facility] Serum or plasma albumin/glob ulin mass ratioOrdered By: Walter Becker on 09-29-2024 Albumin/Globulin [Mass ratio] 1.8 {ratio} 0.9-2.4 [facility] Serum or plasma alkaline marilin sphatase measurementOrdered By: Walter Becker on 09-29-2024 ALP [Catalytic activity/Vol] 101 U/L 40-129 [facility] Serum or plasma calcium antoine urement (mass/volume)Ordered By: Walter Becker on 09-29-2024 Calcium [Mass/Vol] 9.2 mg/dL 7.6-11.0 [facility] Serum or plasma urea nitroge n measurement (mass/volume)Ordered By: Walter Becker on 09-29-2024 Urea nitrogen [Mass/Vol] 23 mg/dL High 4-19 [facility] Sodium levelOrdered By: Walter Becker on 09-29-2024 Sodium [Moles/Vol] 141 mmol/L 133-145 [facility] Total proteinOrdered By: Crystal Becker on 09-29-2024 Protein [Mass/Vol] 5.6 g/dL Low 5.9-8.4 [facility] White blood cell (WBC) count Ordered By: Walter Becker on 09-29-2024 WBC (Bld) [#/Vol] 8.9 10*3/uL 4.4-11.0 [facility] Urine Cultureon 08-05-2024 URC Culture exhibits no growth. Normal [facility] Comment on above: Performed By: #### L 400.0001, M100.2200 ####[facility] [address] [place], [place], [address] Albumin to globulin ratioOrd ered By: Walter Becker on 08-04-2024 Albumin/Globulin [Mass ratio] 1.0 {ratio} 0.9-2.4 [facility] Bilirubin Test strip Ql (U)O rdered By: Walter Becker on 08-04-2024 Bilirubin Ql (U) Negative Negative [facility] Bilirubin, totalOrdered By: Walter Becker on 08-04-2024 Bilirubin [Mass/Vol] 0.50 mg/dL 0.20-1.00 [facility] Comment on above: For patients on eltr ombopag therapy, use of Dimension [place] TBIL is not recommended. Blood urea nitrogen (BUN)/cr eatinine ratioOrdered By: Walter Becker on 08-04-2024 Urea nitrogen/Creatinine [Mass ratio] 21.1 mg/mg High 05-03 [facility] CBC-Complete Blood Cnt No Di ffon 08-04-2024 Erythrocyte distribution width (RBC) [Ratio] 13.0 % Normal 11.6-14.6 [facility] Comment on above: Order Comment: 215.2 Performed By: #### L 500.4050, L100.0500 ####[facility] [address] [place], [address] Hematocrit (Bld) [Volume fraction] 41.3 % Normal 40-54 [facility] Comment on above: Order Comment: 215.2 Performed By: #### L 500.4050, L100.0500 ####[facility] [address] [place], [address] Hemoglobin (Bld) [Mass/Vol] 12.9 g/dL Low 13.0-16. 5 [facility] Comment on above: Order Comment: 215.2 Performed By: #### L 500.4050, L100.0500 ####[facility] [address] [place], [address] MCH (RBC) [Entitic mass] 27.3 pg Normal 27.0-32.0 [facility] Comment on above: Order Comment: 215.2 Performed By: #### L 500.4050, L100.0500 ####[facility] [address] [place], [address] MCHC (RBC) [Mass/Vol] 31.2 g/dL Low 32-36 [facility] Comment on above: Order Comment: 215.2 Performed By: #### L 500.4050, L100.0500 ####[facility] [address] [place], [address] MCV (RBC) [Entitic vol] 87.3 fL Normal 80-94 [facility] Comment on above: Order Comment: 215.2 Performed By: #### L 500.4050, L100.0500 ####[facility] [address] [place], [address] Platelet mean volume (Bld) [Entitic vol] 9.3 fL Normal 6.2-12.0 [facility] Comment on above: Order Comment: 215.2 Performed By: #### L 500.4050, L100.0500 ####[facility] [address] [place], [address] Platelets (Bld) [#/Vol] 295 10*3/uL Normal 150-450 [facility] Comment on above: Order Comment: 215.2 Performed By: #### L 500.4050, L100.0500 ####[facility] [address] [place], [address] RBC (Bld) [#/Vol] 4.73 10*6/uL Normal 4.6-6.2 [facility] Comment on above: Order Comment: 215.2 Performed By: #### L 500.4050, L100.0500 ####[facility] [address] [place], [address] RDW SD 41.8 fl Normal 35.1-43.9 [facility] Comment on above: Order Comment: 215.2 Performed By: #### L 500.4050, L100.0500 ####[facility] [address] [place], [address] WBC (Bld) [#/Vol] 9.3 10*3/uL Normal 4.4-11.0 [facility] Comment on above: Order Comment: 215.2 Performed By: #### L 500.4050, L100.0500 ####[facility] [address] [place], [address] Carbon dioxide measurementOr dered By: Walter Becker on 08-04-2024 CO2 [Moles/Vol] 29.0 mmol/L 21.0-32.0 [facility] Chloride measurementOrdered By: Walter Becker on 08-04-2024 Chloride [Moles/Vol] 104 mmol/L 98-107 [facility] Comprehensive Metabolic Prof ilon 08-04-2024 Albumin [Mass/Vol] 3.5 g/dL Normal 3.2-5.0 [facility] Comment on above: Order Comment: 215.2 Performed By: #### L 500.4050, L100.0500 ####[facility] [address] [place], [address] Albumin/Globulin [Mass ratio] 1.0 {ratio} Normal 0.9-2.4 [facility] Comment on above: Order Comment: 215.2 Performed By: #### L 500.4050, L100.0500 ####[facility] [address] [place], [address] ALK P 125 U/L High 45-117 [facility] Comment on above: Order Comment: 215.2 Performed By: #### L 500.4050, L100.0500 ####[facility] [address] [place], [address] ALT [Catalytic activity/Vol] 19 U/L Normal 16-61 [facility] Comment on above: Order Comment: 215.2 Performed By: #### L 500.4050, L100.0500 ####[facility] [address] [place], [address] AST [Catalytic activity/Vol] 12 U/L Low 15-37 [facility] Comment on above: Order Comment: 215.2 Performed By: #### L 500.4050, L100.0500 ####[facility] [address] [place], [address] Bilirubin [Mass/Vol] 0.50 mg/dL Normal 0.20-1.00 [facility] Comment on above: Order Comment: 215.2 Result Comment: For patients on eltrombopag therapy, use of Dimension [place] TBIL is not recommended. Performed By: #### L 500.4050, L100.0500 ####[facility] [address] [place], [address] BUN/CRE 21.1 RATIO High 10-20 [facility] Comment on above: Order Comment: 215.2 Performed By: #### L 500.4050, L100.0500 ####[facility] [address] [place], [address] CA,Total 9.7 mg/dL Normal 8.5-10.1 [facility] Comment on above: Order Comment: 215.2 Performed By: #### L 500.4050, L100.0500 ####[facility] [address] [place], [address] Chloride [Moles/Vol] 104 mmol/L Normal 98-107 [facility] Comment on above: Order Comment: 215.2 Performed By: #### L 500.4050, L100.0500 ####[facility] [address] [place], [address] CO2 [Moles/Vol] 29.0 mmol/L Normal 21.0-32.0 [facility] Comment on above: Order Comment: 215.2 Performed By: #### L 500.4050, L100.0500 ####[facility] [address] [place], [address] Creatinine [Mass/Vol] 1.28 mg/dL Normal 0.70-1.30 [facility] Comment on above: Order Comment: 215.2 Result Comment: The validity of the calculated GFR GFRAA in patients over70 years has not been determined. Clinical correlation isessential. Performed By: #### L 500.4050, L100.0500 ####[facility] [address] [place], [address] EST GFR - AA 70 mL/min Normal >60 [facility] Comment on above: Order Comment: 215.2 Result Comment: Afri can Palestinian GFR Calc Performed By: #### L 500.4050, L100.0500 ####[facility] [address] [place], [address] GAP 7 Normal 5-15 [facility] Comment on above: Order Comment: 215.2 Performed By: #### L 500.4050, L100.0500 ####[facility] [address] [place], [address] GFR/1.73 sq M.predicted among non-blacks MDRD (S/P/Bld) [Vol rate/Area] 58 mL/min/{1.73_m2} Low >60 [facility] Comment on above: Order Comment: 215.2 Result Comment: Non- GFR Calc Performed By: #### L 500.4050, L100.0500 ####[facility] [address] [place], [address] Globulin (S) [Mass/Vol] 3.5 g/dL Normal 2.2-4.2 [facility] Comment on above: Order Comment: 215.2 Performed By: #### L 500.4050, L100.0500 ####[facility] [address] [place], [address] Glucose [Mass/Vol] 128 mg/dL High 74-106 [facility] Comment on above: Order Comment: 215.2 Result Comment: Fast ing Glucose result greater than or equal to 126 mg/dLsuggests DIABETES MELLITUS per A.D.A. criteria. Performed By: #### L 500.4050, L100.0500 ####[facility] [address] [place], [address] Potassium [Moles/Vol] 3.9 mmol/L Normal 3.5-5.1 [facility] Comment on above: Order Comment: 215.2 Performed By: #### L 500.4050, L100.0500 ####[facility] [address] [place], [address] Sodium [Moles/Vol] 140 mmol/L Normal 136-145 [facility] Comment on above: Order Comment: 215.2 Performed By: #### L 500.4050, L100.0500 ####[facility] [address] [place], [address] T PROT 7.0 g/dL Normal 6.4-8.2 [facility] Comment on above: Order Comment: 215.2 Performed By: #### L 500.4050, L100.0500 ####[facility] [address] [place], [address] Urea nitrogen [Mass/Vol] 27 mg/dL High 7-18 [facility] Comment on above: Order Comment: 215.2 Performed By: #### L 500.4050, L100.0500 ####[facility] [address] [place], [address] Epithelial cells.squamous LM Ql (Urine sed)Ordered By: Walter Becker on 08-04-2024 Epithelial cells.squamous LM.HPF (Urine sed) [#/Area] 0 /[HPF] 0-5 [facility] Erythrocyte distribution wid th (RBC) [Ratio]Ordered By: Walter Becker on 08-04-2024 Erythrocyte distribution width (RBC) [Entitic vol] 41.8 fL 35.1-43.9 [facility] Erythrocyte distribution wid th ratioOrdered By: Walter Becker on 08-04-2024 Erythrocyte distribution width (RBC) [Ratio] 13.0 % 11.6-14.6 [facility] Estimated glomerular filtrat ion rate (GFR) AmericanOrdered By: Walter Becker on 08-04-2024 Estimated GFR (MDRD) Amer 70 mL/min >60 [facility] Comment on above: GFR Calc Glomerular filtration rate ( GFR) estimationOrdered By: Walter Becker on 08-04-2024 Estimated GFR (MDRD) Non-Af Amer 58 mL/min Low >60 [facility] Comment on above: Non- GFR Calc Glucose Ql (U)Ordered By: Horner on 08-04-2024 Urine Glucose (UA) Normal mg/dl Normal [facility] Glucose measurementOrdered B y: Walter Becker on 08-04-2024 Glucose [Mass/Vol] 128 mg/dL High 74-106 [facility] Comment on above: Fasting Glucose resu lt greater than or equal to 126 mg/dL suggests DIABETES MELLITUS per A.D.A. criteria. Hematocrit Auto (Bld) [Volum e fraction]Ordered By: Walter Becker on 08-04-2024 Hematocrit (Bld) [Volume fraction] 41.3 % 40-54 [facility] Hemoglobin measurementOrdere d By: Walter Becker on 08-04-2024 Hemoglobin (Bld) [Mass/Vol] 12.9 g/dL Low 13.0-16. 5 [facility] Ketones Test strip Ql (U)Ord ered By: Walter Becker on 08-04-2024 Ketones Ql (U) Negative Negative [facility] Laboratory - Chemistry and C hemistry - challengeOrdered By: Walter Becker on 08-04-2024 AST [Catalytic activity/Vol] 12 U/L Low 15-37 [facility] MCV (mean corpuscular volume ) determinationOrdered By: Walter Becker on 08-04-2024 MCV (RBC) [Entitic vol] 87.3 fL 80-94 [facility] Mean corpuscular hemoglobin (MCH) determinationOrdered By: Walter Becker on 08-04-2024 MCH (RBC) [Entitic mass] 27.3 pg 27.0-32.0 [facility] Mean corpuscular hemoglobin concentration (MCHC) determinationOrdered By: Walter Becker on 08-04-2024 MCHC (RBC) [Mass/Vol] 31.2 g/dL Low 32-36 [facility] Mean platelet volume determi nationOrdered By: Walter Becker on 08-04-2024 Platelet mean volume (Bld) [Entitic vol] 9.3 fL 6.2-12.0 [facility] Microscopic analysis of urin e for red blood cells (RBC)Ordered By: Walter Becker on 08-04-2024 Urine RBC 0 SEEN /hpf 0-5 [facility] Mucus LM Ql (Urine sed)Order ed By: Walter Becker on 08-04-2024 Mucus Ql (Urine sed) 0 SEEN /hpf [facility] Nitrite Test strip Ql (U)Ord ered By: Walter Becker on 08-04-2024 Nitrite Ql (U) Negative Negative [facility] Platelet countOrdered By: Horner on 08-04-2024 Platelets (Bld) [#/Vol] 295 10*3/uL 150-450 [facility] Potassium measurementOrdered By: Walter Becker on 08-04-2024 Potassium [Moles/Vol] 3.9 mmol/L 3.5-5.1 [facility] Protein Test strip Ql (U)Ord ered By: Walter Becker on 08-04-2024 Protein Ql (U) Negative Negative [facility] RBC Auto (Bld) [#/Vol]Ordere d By: Walter Becker on 08-04-2024 RBC (Bld) [#/Vol] 4.73 10*6/uL 4.6-6.2 [facility] Serum anion gap measurementO rdered By: Walter Becker on 08-04-2024 Anion gap [Moles/Vol] 7 mmol/L 5-15 [facility] Serum globulin measurementOr dered By: Walter Becker on 08-04-2024 Globulin (S) [Mass/Vol] 3.5 g/dL 2.2-4.2 [facility] Serum or plasma alanine davis otransferase (ALT) measurementOrdered By: Walter Becker on 08-04-2024 ALT [Catalytic activity/Vol] 19 U/L 16-61 [facility] Serum or plasma albumin antoine urement (mass/volume)Ordered By: Walter Becker on 08-04-2024 Albumin [Mass/Vol] 3.5 g/dL 3.2-5.0 [facility] Serum or plasma alkaline marilin sphatase measurementOrdered By: Walter Becker on 08-04-2024 ALP [Catalytic activity/Vol] 125 U/L High 45-117 [facility] Serum or plasma calcium antoine urement (mass/volume)Ordered By: Walter Becker on 08-04-2024 Calcium [Mass/Vol] 9.7 mg/dL 8.5-10.1 [facility] Serum or plasma creatinine m easurement (mass/volume)Ordered By: Walter Becker on 08-04-2024 Creatinine [Mass/Vol] 1.28 mg/dL 0.70-1.30 [facility] Comment on above: The validity of the calculated GFR & GFRAA in patients over 70 years has not been determined. Clinical correlation is essential. Serum or plasma urea nitroge n measurement (mass/volume)Ordered By: Walter Becker on 08-04-2024 Urea nitrogen [Mass/Vol] 27 mg/dL High 7-18 [facility] Sodium levelOrdered By: Walter Becker on 08-04-2024 Sodium [Moles/Vol] 140 mmol/L 136-145 [facility] Total proteinOrdered By: Crystal Becker on 08-04-2024 Protein [Mass/Vol] 7.0 g/dL 6.4-8.2 [facility] Urinalysis, Completeon 08-04 WBC 0-5 SEEN Normal 0-5 [facility] Comment on above: Order Comment: SCCAT HETER SPECIMEN Performed By: #### L 400.0001, ####[facility] [address] [place], [address] BACTERIA 0 SEEN Normal None Seen [facility] Comment on above: Order Comment: SCCAT HETER SPECIMEN Performed By: #### L 400.0001, ####[facility] [address] [place], [address] EPI,SQUAMOUS 0 SEEN Normal 0-5 [facility] Comment on above: Order Comment: SCCAT HETER SPECIMEN Performed By: #### L 400.0001, M100.0 ####[facility] [address] [place], [address] Mucus Ql (Urine sed) 0 SEEN Normal [facility] Comment on above: Order Comment: SCCAT HETER SPECIMEN Performed By: #### L 400.0001, M100.2200 ####[facility] [address] [place], [address] RBC 0 SEEN Normal 0-5 [facility] Comment on above: Order Comment: SCCAT HETER SPECIMEN Performed By: #### L 400.0001, M100.0 ####[facility] [address] [place], [address] Urine blood detectionOrdered By: Walter Becker on 08-04-2024 Urine Occult Blood Negative Negative [facility] Urine clarityOrdered By: Crystal Becker on 08-04-2024 Clarity (U) Clear Clear [facility] Urine color determinationOrd ered By: Walter Becker on 08-04-2024 Color (U) Yellow Yellow [facility] Urine cultureOrdered By: Crystal Becker on 08-04-2024 Bacteria identified Cx Nom (U) Culture exhibits no growth. [facility] Urine leukocyte esterase det ection by dipstickOrdered By: Walter Becker on 08-04-2024 Leukocyte esterase Test strip Ql (U) Negative Negative [facility] Urine pHOrdered By: Walter floyd on 08-04-2024 pH (U) 6.0 [pH] 5.0 - 8.0 [facility] Urine sediment bacteria coun t by microscopy (number/high power field)Ordered By: Walter Becker on 08-04-2024 Bacteria LM.HPF (Urine sed) [#/Area] 0 /[HPF] None Seen [facility] Urine specific gravity measu rementOrdered By: Walter Becker on 08-04-2024 Specific gravity (U) [Rel density] 1.010 1.002-1.03 0 [facility] Urobilinogen Ql (U)Ordered B y: Walter Becker on 08-04-2024 Urine Urobilinogen Normal mg/dl Normal [facility] White blood cell (WBC) count Ordered By: Walter Becker on 08-04-2024 WBC (Bld) [#/Vol] 9.3 10*3/uL 4.4-11.0 [facility] White blood cell countOrdere d By: Walter Becker on 08-04-2024 Urine WBC 0-5 SEEN /hpf 0-5 [facility] Albumin to globulin ratioOrd ered By: Walter Becker on 07-27-2024 Albumin/Globulin [Mass ratio] 1.1 {ratio} 0.9-2.4 [facility] Bilirubin, totalOrdered By: Walter Becker on 07-27-2024 Bilirubin [Mass/Vol] 0.60 mg/dL 0.20-1.00 [facility] Comment on above: For patients on eltr ombopag therapy, use of Dimension [place] TBIL is not recommended. Blood urea nitrogen (BUN)/cr eatinine ratioOrdered By: Walter Becker on 07-27-2024 Urea nitrogen/Creatinine [Mass ratio] 20.0 mg/mg 10-20 [facility] CBC-Complete Blood Cnt No Di ffon 07-27-2024 Erythrocyte distribution width (RBC) [Ratio] 13.5 % Normal 11.6-14.6 [facility] Comment on above: Order Comment: 215-2 Performed By: #### L 500.4050, L100.0500 ####[facility] [address] [place], [address] Hematocrit (Bld) [Volume fraction] 35.7 % Low 40-54 [facility] Comment on above: Order Comment: 215-2 Performed By: #### L 500.4050, L100.0500 ####[facility] [address] [place], [address] Hemoglobin (Bld) [Mass/Vol] 11.5 g/dL Low 13.0-16. 5 [facility] Comment on above: Order Comment: 215-2 Performed By: #### L 500.4050, L100.0500 ####[facility] [address] [place], [address] MCH (RBC) [Entitic mass] 28.2 pg Normal 27.0-32.0 [facility] Comment on above: Order Comment: 215-2 Performed By: #### L 500.4050, L100.0500 ####[facility] [address] [place], [address] MCHC (RBC) [Mass/Vol] 32.2 g/dL Normal 32-36 [facility] Comment on above: Order Comment: 215-2 Performed By: #### L 500.4050, L100.0500 ####[facility] [address] [place], [address] MCV (RBC) [Entitic vol] 87.5 fL Normal 80-94 [facility] Comment on above: Order Comment: 215-2 Performed By: #### L 500.4050, L100.0500 ####[facility] [address] [place], [address] Platelet mean volume (Bld) [Entitic vol] 9.6 fL Normal 6.2-12.0 [facility] Comment on above: Order Comment: 215-2 Performed By: #### L 500.4050, L100.0500 ####[facility] [address] [place], [address] Platelets (Bld) [#/Vol] 192 10*3/uL Normal 150-450 [facility] Comment on above: Order Comment: 215-2 Performed By: #### L 500.4050, L100.0500 ####[facility] [address] [place], [address] RBC (Bld) [#/Vol] 4.08 10*6/uL Low 4.6-6.2 [facility] Comment on above: Order Comment: 215-2 Performed By: #### L 500.4050, L100.0500 ####[facility] [address] [place], [address] RDW SD 43.1 fl Normal 35.1-43.9 [facility] Comment on above: Order Comment: 215-2 Performed By: #### L 500.4050, L100.0500 ####[facility] [address] [place], [address] WBC (Bld) [#/Vol] 7.2 10*3/uL Normal 4.4-11.0 [facility] Comment on above: Order Comment: 215-2 Performed By: #### L 500.4050, L100.0500 ####[facility] [address] [place], [address] Carbon dioxide measurementOr dered By: Walter Becker on 07-27-2024 CO2 [Moles/Vol] 29.0 mmol/L 21.0-32.0 [facility] Chloride measurementOrdered By: Walter Becker on 07-27-2024 Chloride [Moles/Vol] 105 mmol/L 98-107 [facility] Comprehensive Metabolic Prof ilon 07-27-2024 Albumin [Mass/Vol] 3.1 g/dL Low 3.2-5.0 [facility] Comment on above: Order Comment: 215-2 Performed By: #### L 500.4050, L100.0500 ####[facility] [address] [place], [address] Albumin/Globulin [Mass ratio] 1.1 {ratio} Normal 0.9-2.4 [facility] Comment on above: Order Comment: 215-2 Performed By: #### L 500.4050, L100.0500 ####[facility] [address] [place], [address] ALK P 124 U/L High 45-117 [facility] Comment on above: Order Comment: 215-2 Performed By: #### L 500.4050, L100.0500 ####[facility] [address] [place], [address] ALT [Catalytic activity/Vol] 20 U/L Normal 16-61 [facility] Comment on above: Order Comment: 215-2 Performed By: #### L 500.4050, L100.0500 ####[facility] [address] [place], [address] AST [Catalytic activity/Vol] 10 U/L Low 15-37 [facility] Comment on above: Order Comment: 215-2 Performed By: #### L 500.4050, L100.0500 ####[facility] [address] [place], [address] Bilirubin [Mass/Vol] 0.60 mg/dL Normal 0.20-1.00 [facility] Comment on above: Order Comment: 215-2 Result Comment: For patients on eltrombopag therapy, use of Dimension [place] TBIL is not recommended. Performed By: #### L 500.4050, L100.0500 ####[facility] [address] [place], [address] BUN/CRE 20.0 RATIO Normal 10-20 [facility] Comment on above: Order Comment: 215-2 Performed By: #### L 500.4050, L100.0500 ####[facility] [address] [place], [address] CA,Total 8.9 mg/dL Normal 8.5-10.1 [facility] Comment on above: Order Comment: 215-2 Performed By: #### L 500.4050, L100.0500 ####[facility] [address] [place], [address] Chloride [Moles/Vol] 105 mmol/L Normal 98-107 [facility] Comment on above: Order Comment: 215-2 Performed By: #### L 500.4050, L100.0500 ####[facility] [address] [place], [address] CO2 [Moles/Vol] 29.0 mmol/L Normal 21.0-32.0 [facility] Comment on above: Order Comment: 215-2 Performed By: #### L 500.4050, L100.0500 ####[facility] [address] [place], [address] Creatinine [Mass/Vol] 1.10 mg/dL Normal 0.70-1.30 [facility] Comment on above: Order Comment: 215-2 Result Comment: The validity of the calculated GFR GFRAA in patients over70 years has not been determined. Clinical correlation isessential. Performed By: #### L 500.4050, L100.0500 ####[facility] [address] [place], [address] EST GFR - AA 84 mL/min Normal >60 [facility] Comment on above: Order Comment: 215-2 Result Comment: Afri can Palestinian GFR Calc Performed By: #### L 500.4050, L100.0500 ####[facility] [address] [place], [address] GAP 4 Low 5-15 [facility] Comment on above: Order Comment: 215-2 Performed By: #### L 500.4050, L100.0500 ####[facility] [address] [place], [address] GFR/1.73 sq M.predicted among non-blacks MDRD (S/P/Bld) [Vol rate/Area] 69 mL/min/{1.73_m2} Normal >60 [facility] Comment on above: Order Comment: 215-2 Result Comment: Non- GFR Calc Performed By: #### L 500.4050, L100.0500 ####[facility] [address] [place], [address] Globulin (S) [Mass/Vol] 2.9 g/dL Normal 2.2-4.2 [facility] Comment on above: Order Comment: 215-2 Performed By: #### L 500.4050, L100.0500 ####[facility] [address] [place], [address] Glucose [Mass/Vol] 127 mg/dL High 74-106 [facility] Comment on above: Order Comment: 215-2 Result Comment: Fast ing Glucose result greater than or equal to 126 mg/dLsuggests DIABETES MELLITUS per A.D.A. criteria. Performed By: #### L 500.4050, L100.0500 ####[facility] [address] [place], [address] Potassium [Moles/Vol] 4.1 mmol/L Normal 3.5-5.1 [facility] Comment on above: Order Comment: 215-2 Performed By: #### L 500.4050, L100.0500 ####[facility] [address] [place], [address] Sodium [Moles/Vol] 137 mmol/L Normal 136-145 [facility] Comment on above: Order Comment: 215-2 Performed By: #### L 500.4050, L100.0500 ####[facility] [address] [place], [address] T PROT 6.0 g/dL Low 6.4-8.2 [facility] Comment on above: Order Comment: 215-2 Performed By: #### L 500.4050, L100.0500 ####[facility] [address] [place], [address] Urea nitrogen [Mass/Vol] 22 mg/dL High 7-18 [facility] Comment on above: Order Comment: 215-2 Performed By: #### L 500.4050, L100.0500 ####[facility] [address] [place], [address] Erythrocyte distribution wid th (RBC) [Ratio]Ordered By: Walter Becker on 07-27-2024 Erythrocyte distribution width (RBC) [Entitic vol] 43.1 fL 35.1-43.9 [facility] Erythrocyte distribution wid th ratioOrdered By: Walter Becker on 07-27-2024 Erythrocyte distribution width (RBC) [Ratio] 13.5 % 11.6-14.6 [facility] Estimated glomerular filtrat ion rate (GFR) AmericanOrdered By: Walter Becker on 07-27-2024 Estimated GFR (MDRD) Amer 84 mL/min >60 [facility] Comment on above: GFR Calc Glomerular filtration rate ( GFR) estimationOrdered By: Walter Becker on 07-27-2024 Estimated GFR (MDRD) Non-Af Amer 69 mL/min >60 [facility] Comment on above: Non- GFR Calc Glucose measurementOrdered B y: Walter Becker on 07-27-2024 Glucose [Mass/Vol] 127 mg/dL High 74-106 [facility] Comment on above: Fasting Glucose resu lt greater than or equal to 126 mg/dL suggests DIABETES MELLITUS per A.D.A. criteria. Hematocrit Auto (Bld) [Volum e fraction]Ordered By: Walter Becker on 07-27-2024 Hematocrit (Bld) [Volume fraction] 35.7 % Low 40-54 [facility] Hemoglobin measurementOrdere d By: Walter Becker on 07-27-2024 Hemoglobin (Bld) [Mass/Vol] 11.5 g/dL Low 13.0-16. 5 [facility] Laboratory - Chemistry and C hemistry - challengeOrdered By: Walter Becker on 07-27-2024 AST [Catalytic activity/Vol] 10 U/L Low 15-37 [facility] MCV (mean corpuscular volume ) determinationOrdered By: Walter Becker on 07-27-2024 MCV (RBC) [Entitic vol] 87.5 fL 80-94 [facility] Mean corpuscular hemoglobin (MCH) determinationOrdered By: Walter Becker on 07-27-2024 MCH (RBC) [Entitic mass] 28.2 pg 27.0-32.0 [facility] Mean corpuscular hemoglobin concentration (MCHC) determinationOrdered By: Walter Becker on 07-27-2024 MCHC (RBC) [Mass/Vol] 32.2 g/dL 32-36 [facility] Mean platelet volume determi nationOrdered By: Walter Becker on 07-27-2024 Platelet mean volume (Bld) [Entitic vol] 9.6 fL 6.2-12.0 [facility] Platelet countOrdered By: Horner on 07-27-2024 Platelets (Bld) [#/Vol] 192 10*3/uL 150-450 [facility] Potassium measurementOrdered By: Walter Becker on 07-27-2024 Potassium [Moles/Vol] 4.1 mmol/L 3.5-5.1 [facility] RBC Auto (Bld) [#/Vol]Ordere d By: Walter Becker on 07-27-2024 RBC (Bld) [#/Vol] 4.08 10*6/uL Low 4.6-6.2 [facility] Serum anion gap measurementO rdered By: Walter Becker on 07-27-2024 Anion gap [Moles/Vol] 4 mmol/L Low 5-15 [facility] Serum globulin measurementOr dered By: Walter Becker on 07-27-2024 Globulin (S) [Mass/Vol] 2.9 g/dL 2.2-4.2 [facility] Serum or plasma alanine davis otransferase (ALT) measurementOrdered By: Walter Becker on 07-27-2024 ALT [Catalytic activity/Vol] 20 U/L 16-61 [facility] Serum or plasma albumin antoine urement (mass/volume)Ordered By: Walter Becker on 07-27-2024 Albumin [Mass/Vol] 3.1 g/dL Low 3.2-5.0 [facility] Serum or plasma alkaline marilin sphatase measurementOrdered By: Walter Becker on 07-27-2024 ALP [Catalytic activity/Vol] 124 U/L High 45-117 [facility] Serum or plasma calcium antoine urement (mass/volume)Ordered By: Walter Becker on 07-27-2024 Calcium [Mass/Vol] 8.9 mg/dL 8.5-10.1 [facility] Serum or plasma creatinine m easurement (mass/volume)Ordered By: Walter Becker on 07-27-2024 Creatinine [Mass/Vol] 1.10 mg/dL 0.70-1.30 [facility] Comment on above: The validity of the calculated GFR & GFRAA in patients over 70 years has not been determined. Clinical correlation is essential. Serum or plasma urea nitroge n measurement (mass/volume)Ordered By: Walter Becker on 07-27-2024 Urea nitrogen [Mass/Vol] 22 mg/dL High 7-18 [facility] Sodium levelOrdered By: Walter Becker on 07-27-2024 Sodium [Moles/Vol] 137 mmol/L 136-145 [facility] Total proteinOrdered By: Crystal Becker on 07-27-2024 Protein [Mass/Vol] 6.0 g/dL Low 6.4-8.2 [facility] White blood cell (WBC) count Ordered By: Walter Becker on 07-27-2024 WBC (Bld) [#/Vol] 7.2 10*3/uL 4.4-11.0 [facility] Albumin to globulin ratioOrd ered By: Walter Becker on 07-07-2024 Albumin/Globulin [Mass ratio] 1.0 {ratio} 0.9-2.4 [facility] Bilirubin, totalOrdered By: Walter Becker on 07-07-2024 Bilirubin [Mass/Vol] 0.40 mg/dL 0.20-1.00 [facility] Comment on above: For patients on eltr ombopag therapy, use of Dimension [place] TBIL is not recommended. Blood urea nitrogen (BUN)/cr eatinine ratioOrdered By: Walter Becker on 07-07-2024 Urea nitrogen/Creatinine [Mass ratio] 23.6 mg/mg High 10-20 [facility] CBC-Complete Blood Cnt No Di ffon 07-07-2024 Erythrocyte distribution width (RBC) [Ratio] 13.3 % Normal 11.6-14.6 [facility] Comment on above: Order Comment: 215.2 Performed By: #### L 100.0500, L500.4050, L501.9985 ####[facility] [address] [place], [address] Hematocrit (Bld) [Volume fraction] 38.1 % Low 40-54 [facility] Comment on above: Order Comment: 215.2 Performed By: #### L 100.0500, L500.4050, L501.9985 ####[facility] [address] [place], [address] Hemoglobin (Bld) [Mass/Vol] 12.3 g/dL Low 13.0-16. 5 [facility] Comment on above: Order Comment: 215.2 Performed By: #### L 100.0500, L500.4050, [id number] ####[facility] [address] [place], [address] MCH (RBC) [Entitic mass] 28.3 pg Normal 27.0-32.0 [facility] Comment on above: Order Comment: 215.2 Performed By: #### L 100.0500, L500.4050, [id number] ####[facility] [address] [place], [address] MCHC (RBC) [Mass/Vol] 32.3 g/dL Normal 32-36 [facility] Comment on above: Order Comment: 215.2 Performed By: #### L 100.0500, L500.4050, [id number] ####[facility] [address] [place], [address] MCV (RBC) [Entitic vol] 87.6 fL Normal 80-94 [facility] Comment on above: Order Comment: 215.2 Performed By: #### L 100.0500, L500.4050, [id number] ####[facility] [address] [place], [address] Platelet mean volume (Bld) [Entitic vol] 9.1 fL Normal 6.2-12.0 [facility] Comment on above: Order Comment: 215.2 Performed By: #### L 100.0500, L500.4050, [id number] ####[facility] [address] [place], [address] Platelets (Bld) [#/Vol] 211 10*3/uL Normal 150-450 [facility] Comment on above: Order Comment: 215.2 Performed By: #### L 100.0500, L500.4050, [id number] ####[facility] [address] [place], [address] RBC (Bld) [#/Vol] 4.35 10*6/uL Low 4.6-6.2 [facility] Comment on above: Order Comment: 215.2 Performed By: #### L 100.0500, L500.4050, [id number] ####[facility] [place] [address] [place], [address] RDW SD 42.5 fl Normal 35.1-43.9 [facility] Comment on above: Order Comment: 215.2 Performed By: #### L 100.0500, L500.4050, L501.9985 ####[facility] [address] [place], [address] WBC (Bld) [#/Vol] 7.6 10*3/uL Normal 4.4-11.0 [facility] Comment on above: Order Comment: 215.2 Performed By: #### L 100.0500, L500.4050, L501.9985 ####[facility] [address] [place], [address] Carbon dioxide measurementOr dered By: Walter Becker on 07-07-2024 CO2 [Moles/Vol] 32.0 mmol/L 21.0-32.0 [facility] Chloride measurementOrdered By: Walter Becker on 07-07-2024 Chloride [Moles/Vol] 107 mmol/L 98-107 [facility] Comprehensive Metabolic Prof ilon 07-07-2024 Albumin [Mass/Vol] 2.9 g/dL Low 3.2-5.0 [facility] Comment on above: Order Comment: 215.2 Performed By: #### L 100.0500, L500.4050, L501.9985 ####[facility] [address] [place], [address] Albumin/Globulin [Mass ratio] 1.0 {ratio} Normal 0.9-2.4 [facility] Comment on above: Order Comment: 215.2 Performed By: #### L 100.0500, L500.4050, L501.9985 ####[facility] [address] [place], [address] ALK P 121 U/L High 45-117 [facility] Comment on above: Order Comment: 215.2 Performed By: #### L 100.0500, L500.4050, L501.9985 ####[facility] [address] [place], [address] ALT [Catalytic activity/Vol] 20 U/L Normal 16-61 [facility] Comment on above: Order Comment: 215.2 Performed By: #### L 100.0500, L500.4050, L501.9985 ####[facility] [address] [place], [address] AST [Catalytic activity/Vol] 10 U/L Low 15-37 [facility] Comment on above: Order Comment: 215.2 Performed By: #### L 100.0500, L500.4050, L501.9985 ####[facility] [address] [place], [address] Bilirubin [Mass/Vol] 0.40 mg/dL Normal 0.20-1.00 [facility] Comment on above: Order Comment: 215.2 Result Comment: For patients on eltrombopag therapy, use of Dimension [place] TBIL is not recommended. Performed By: #### L 100.0500, L500.4050, L501.9985 ####[facility] [address] [place], [address] BUN/CRE 23.6 RATIO High 10-20 [facility] Comment on above: Order Comment: 215.2 Performed By: #### L 100.0500, L500.4050, L501.9985 ####[facility] [address] [place], [address] CA,Total 9.1 mg/dL Normal 8.5-10.1 [facility] Comment on above: Order Comment: 215.2 Performed By: #### L 100.0500, L500.4050, L501.9985 ####[facility] [address] [place], [address] Chloride [Moles/Vol] 107 mmol/L Normal 98-107 [facility] Comment on above: Order Comment: 215.2 Performed By: #### L 100.0500, L500.4050, L501.9985 ####[facility] [address] [place], [address] CO2 [Moles/Vol] 32.0 mmol/L Normal 21.0-32.0 [facility] Comment on above: Order Comment: 215.2 Performed By: #### L 100.0500, L500.4050, [id number] ####[facility] [address] [place], [address] Creatinine [Mass/Vol] 1.06 mg/dL Normal 0.70-1.30 [facility] Comment on above: Order Comment: 215.2 Result Comment: The validity of the calculated GFR GFRAA in patients over70 years has not been determined. Clinical correlation isessential. Performed By: #### L 100.0500, L500.4050, L501.9985 ####[facility] [address] [place], [address] EST GFR - AA 87 mL/min Normal >60 [facility] Comment on above: Order Comment: 215.2 Result Comment: Afri can Palestinian GFR Calc Performed By: #### L 100.0500, L500.4050, L501.9985 ####[facility] [address] [place], [address] GAP 3 Low 5-15 [facility] Comment on above: Order Comment: 215.2 Performed By: #### L 100.0500, L500.4050, L501.9985 ####[facility] [address] [place], [address] GFR/1.73 sq M.predicted among non-blacks MDRD (S/P/Bld) [Vol rate/Area] 72 mL/min/{1.73_m2} Normal >60 [facility] Comment on above: Order Comment: 215.2 Result Comment: Non- GFR Calc Performed By: #### L 100.0500, L500.4050, L501.9985 ####[facility] [address] [place], [address] Globulin (S) [Mass/Vol] 3.0 g/dL Normal 2.2-4.2 [facility] Comment on above: Order Comment: 215.2 Performed By: #### L 100.0500, L500.4050, L501.9985 ####[facility] [address] [place], [address] Glucose [Mass/Vol] 130 mg/dL High 74-106 [facility] Comment on above: Order Comment: 215.2 Result Comment: Fast ing Glucose result greater than or equal to 126 mg/dLsuggests DIABETES MELLITUS per A.D.A. criteria. Performed By: #### L 100.0500, L500.4050, L501.9985 ####[facility] [address] [place], [address] Potassium [Moles/Vol] 3.9 mmol/L Normal 3.5-5.1 [facility] Comment on above: Order Comment: 215.2 Performed By: #### L 100.0500, L500.4050, L501.9985 ####[facility] [address] [place], [address] Sodium [Moles/Vol] 141 mmol/L Normal 136-145 [facility] Comment on above: Order Comment: 215.2 Performed By: #### L 100.0500, L500.4050, L501.9985 ####[facility] [address] [place], [address] T PROT 5.9 g/dL Low 6.4-8.2 [facility] Comment on above: Order Comment: 215.2 Performed By: #### L 100.0500, L500.4050, L501.9985 ####[facility] [address] [place], [address] Urea nitrogen [Mass/Vol] 25 mg/dL High 7-18 [facility] Comment on above: Order Comment: 215.2 Performed By: #### L 100.0500, L500.4050, L501.9985 ####[facility] [address] [place], [address] Erythrocyte distribution wid th (RBC) [Ratio]Ordered By: Walter Becker on 07-07-2024 Erythrocyte distribution width (RBC) [Entitic vol] 42.5 fL 35.1-43.9 [facility] Erythrocyte distribution wid th ratioOrdered By: Walter Becker on 07-07-2024 Erythrocyte distribution width (RBC) [Ratio] 13.3 % 11.6-14.6 [facility] Estimated glomerular filtrat ion rate (GFR) AmericanOrdered By: Walter Becker on 07-07-2024 Estimated GFR (MDRD) Amer 87 mL/min >60 [facility] Comment on above: GFR Calc Glomerular filtration rate ( GFR) estimationOrdered By: Walter Becker on 07-07-2024 Estimated GFR (MDRD) Non-Af Amer 72 mL/min >60 [facility] Comment on above: Non- GFR Calc Glucose measurementOrdered B y: Walter Becker on 07-07-2024 Glucose [Mass/Vol] 130 mg/dL High 74-106 [facility] Comment on above: Fasting Glucose resu lt greater than or equal to 126 mg/dL suggests DIABETES MELLITUS per A.D.A. criteria. Hematocrit Auto (Bld) [Volum e fraction]Ordered By: Walter Becker on 07-07-2024 Hematocrit (Bld) [Volume fraction] 38.1 % Low 40-54 [facility] Hemoglobin A1con 07-07-2024 HbA1c (Bld) [Mass fraction] 6.4 % High 3.8-5.6 [facility] Comment on above: Order Comment: 215.2 Result Comment: Norm al < 5.7 % Prediabetic 5.7 - 6.4 % Diabetic >or= 6.5 % Please note range changes. Performed By: #### L 100.0500, L500.4050, L501.9985 ####[facility] [address] [place], [address] Hemoglobin A1c percentageOrd ered By: Walter Becker on 07-07-2024 HbA1c (Bld) [Mass fraction] 6.4 % High 3.8-5.6 [facility] Comment on above: Normal < 5.7 % Predi abetic 5.7 - 6.4 % Diabetic >or= 6.5 % Please note range changes. Hemoglobin measurementOrdere d By: Walter Bceker on 07-07-2024 Hemoglobin (Bld) [Mass/Vol] 12.3 g/dL Low 13.0-16. 5 [facility] Laboratory - Chemistry and C hemistry - challengeOrdered By: Walter Becker on 07-07-2024 AST [Catalytic activity/Vol] 10 U/L Low 15-37 [facility] MCV (mean corpuscular volume ) determinationOrdered By: Walter Becker on 07-07-2024 MCV (RBC) [Entitic vol] 87.6 fL 80-94 [facility] Mean corpuscular hemoglobin (MCH) determinationOrdered By: Walter Becker on 07-07-2024 MCH (RBC) [Entitic mass] 28.3 pg 27.0-32.0 [facility] Mean corpuscular hemoglobin concentration (MCHC) determinationOrdered By: Walter Becker on 07-07-2024 MCHC (RBC) [Mass/Vol] 32.3 g/dL 32-36 [facility] Mean platelet volume determi nationOrdered By: Walter Becker on 07-07-2024 Platelet mean volume (Bld) [Entitic vol] 9.1 fL 6.2-12.0 [facility] Platelet countOrdered By: Horner on 07-07-2024 Platelets (Bld) [#/Vol] 211 10*3/uL 150-450 [facility] Potassium measurementOrdered By: Walter Becker on 07-07-2024 Potassium [Moles/Vol] 3.9 mmol/L 3.5-5.1 [facility] RBC Auto (Bld) [#/Vol]Ordere d By: Walter Becker on 07-07-2024 RBC (Bld) [#/Vol] 4.35 10*6/uL Low 4.6-6.2 [facility] Serum anion gap measurementO rdered By: Walter Becker on 07-07-2024 Anion gap [Moles/Vol] 3 mmol/L Low 5-15 [facility] Serum globulin measurementOr dered By: Walter Becker on 07-07-2024 Globulin (S) [Mass/Vol] 3.0 g/dL 2.2-4.2 [facility] Serum or plasma alanine davis otransferase (ALT) measurementOrdered By: Walter Becker on 07-07-2024 ALT [Catalytic activity/Vol] 20 U/L 16-61 [facility] Serum or plasma albumin antoine urement (mass/volume)Ordered By: Walter Becker on 07-07-2024 Albumin [Mass/Vol] 2.9 g/dL Low 3.2-5.0 [facility] Serum or plasma alkaline marilin sphatase measurementOrdered By: Walter Becker on 07-07-2024 ALP [Catalytic activity/Vol] 121 U/L High 45-117 [facility] Serum or plasma calcium antoine urement (mass/volume)Ordered By: Walter Becker on 07-07-2024 Calcium [Mass/Vol] 9.1 mg/dL 8.5-10.1 [facility] Serum or plasma creatinine m easurement (mass/volume)Ordered By: Walter Becker on 07-07-2024 Creatinine [Mass/Vol] 1.06 mg/dL 0.70-1.30 [facility] Comment on above: The validity of the calculated GFR & GFRAA in patients over 70 years has not been determined. Clinical correlation is essential. Serum or plasma urea nitroge n measurement (mass/volume)Ordered By: Walter Becker on 07-07-2024 Urea nitrogen [Mass/Vol] 25 mg/dL High 7-18 [facility] Sodium levelOrdered By: Walter Becker on 07-07-2024 Sodium [Moles/Vol] 141 mmol/L 136-145 [facility] Total proteinOrdered By: Crystal Becker on 07-07-2024 Protein [Mass/Vol] 5.9 g/dL Low 6.4-8.2 [facility] White blood cell (WBC) count Ordered By: Walter Becker on 07-07-2024 WBC (Bld) [#/Vol] 7.6 10*3/uL 4.4-11.0 [facility] Vitamin D,25 Hydroxyon 07-02 Vitamin D 25-OH 58.5 ng/mL Normal [facility] Comment on above: Order Comment: 215.2 Result Comment: Laure min D 25(OH) Status Range Deficiency <20 ng/mL (50nmol/L) Insufficiency 20 - 30 ng/mL (50 - 75 nmol/L) Sufficiency 30 - 100 ng/mL (75 - 250 nmol/L) Toxicity >100 ng/mL (>250 nmol/L) Performed By: #### L 506.1000 ####[facility] [address] [place], [address] 05-PS-Iqycqcu DOrdered By: Danny Becker on 07-01-2024 Vitamin D 25-Hydroxy 58.5 ng/mL [facility] Comment on above: Vitamin D 25(OH) Sta tus Range Deficiency <20 ng/mL (50nmol/L) Insufficiency 20 - 30 ng/mL (50 - 75 nmol/L) Sufficiency 30 - 100 ng/mL (75 - 250 nmol/L) Toxicity >100 ng/mL (>250 nmol/L) Bedside Glucoseon 06-01-2024 FINGERSTICK GLU 183 mg/dL High 74-106 [facility] Comment on above: Result Comment: JAZ BRANDON OF PATIENT CARE PER NURSING PROTOCOL Performed By: #### L 501.080 ####[facility] [address] [place], [place], [address] Fluor Guidance for Spine Inj on 06-01-2024 Fluor Guidance for Spine Inj Normal [facility] Operative Reporton Operative Report Normal [facility] CBC-Complete Blood Cnt No Di ffon 04-14-2024 Erythrocyte distribution width (RBC) [Ratio] 14.6 % Normal 11.6-14.6 [facility] Comment on above: Order Comment: 215.2 Performed By: #### L 501.9985, L500.4050, L100.0500 ####[facility] [address] [place], [address] Hematocrit (Bld) [Volume fraction] 39.3 % Low 40-54 [facility] Comment on above: Order Comment: 215.2 Performed By: #### L 501.9985, L500.4050, L100.0500 ####[facility] [address] [place], [address] Hemoglobin (Bld) [Mass/Vol] 12.3 g/dL Low 13.0-16. 5 [facility] Comment on above: Order Comment: 215.2 Performed By: #### L 501.9985, L500.4050, L100.0500 ####[facility] [address] [place], [address] MCH (RBC) [Entitic mass] 27.3 pg Normal 27.0-32.0 [facility] Comment on above: Order Comment: 215.2 Performed By: #### L 501.9985, L500.4050, L100.0500 ####[facility] [address] [place], [address] MCHC (RBC) [Mass/Vol] 31.3 g/dL Low 32-36 [facility] Comment on above: Order Comment: 215.2 Performed By: #### L 501.9985, L500.4050, L100.0500 ####[facility] [address] [place], [address] MCV (RBC) [Entitic vol] 87.3 fL Normal 80-94 [facility] Comment on above: Order Comment: 215.2 Performed By: #### L 501.9985, L500.4050, L100.0500 ####[facility] [address] [place], [address] Platelet mean volume (Bld) [Entitic vol] 9.6 fL Normal 6.2-12.0 [facility] Comment on above: Order Comment: 215.2 Performed By: #### L 501.9985, L500.4050, L100.0500 ####[facility] [address] [place], [address] Platelets (Bld) [#/Vol] 224 10*3/uL Normal 150-450 [facility] Comment on above: Order Comment: 215.2 Performed By: #### L 501.9985, L500.4050, L100.0500 ####[facility] [address] [place], [address] RBC (Bld) [#/Vol] 4.50 10*6/uL Low 4.6-6.2 [facility] Comment on above: Order Comment: 215.2 Performed By: #### L 501.9985, L500.4050, L100.0500 ####[facility] [address] [place], [address] RDW SD 46.6 fl High 35.1-43.9 [facility] Comment on above: Order Comment: 215.2 Performed By: #### L 501.9985, L500.4050, L100.0500 ####[facility] [address] [place], [address] WBC (Bld) [#/Vol] 8.5 10*3/uL Normal 4.4-11.0 [facility] Comment on above: Order Comment: 215.2 Performed By: #### L 501.9985, L500.4050, L100.0500 ####[facility] [address] [place], [address] Comprehensive Metabolic [facility] ilon 04-14-2024 Albumin [Mass/Vol] 3.1 g/dL Low 3.2-5.0 [facility] Comment on above: Order Comment: 215.2 Performed By: #### L 501.9985, L500.4050, L100.0500 ####[facility] [address] [place], [address] Albumin/Globulin [Mass ratio] 1.0 {ratio} Normal 0.9-2.4 [facility] Comment on above: Order Comment: 215.2 Performed By: #### L 501.9985, L500.4050, L100.0500 ####[facility] [address] [place], [address] ALK P 115 U/L Normal 45-117 [facility] Comment on above: Order Comment: 215.2 Performed By: #### L 501.9985, L500.4050, L100.0500 ####[facility] [address] [place], [address] ALT [Catalytic activity/Vol] 17 U/L Normal 16-61 [facility] Comment on above: Order Comment: 215.2 Performed By: #### L 501.9985, L500.4050, L100.0500 ####[facility] [address] [place], [address] AST [Catalytic activity/Vol] 5 U/L Low 15-37 [facility] Comment on above: Order Comment: 215.2 Performed By: #### L 501.9985, L500.4050, L100.0500 ####[facility] [address] [place], [address] Bilirubin [Mass/Vol] 0.60 mg/dL Normal 0.20-1.00 [facility] Comment on above: Order Comment: 215.2 Result Comment: For patients on eltrombopag therapy, use of Dimension [place] TBIL is not recommended. Performed By: #### L 501.9985, L500.4050, L100.0500 ####[facility] [address] [place], [address] BUN/CRE 21.2 RATIO High 10-20 [facility] Comment on above: Order Comment: 215.2 Performed By: #### L 501.9985, L500.4050, L100.0500 ####[facility] [address] [place], [address] CA,Total 9.6 mg/dL Normal 8.5-10.1 [facility] Comment on above: Order Comment: 215.2 Performed By: #### L 501.9985, L500.4050, L100.0500 ####[facility] [address] [place], [address] Chloride [Moles/Vol] 108 mmol/L High 98-107 [facility] Comment on above: Order Comment: 215.2 Performed By: #### L 501.9985, L500.4050, L100.0500 ####[facility] [address] [place], [address] CO2 [Moles/Vol] 29.0 mmol/L Normal 21.0-32.0 [facility] Comment on above: Order Comment: 215.2 Performed By: #### L 501.9985, L500.4050, L100.0500 ####[facility] [address] [place], [address] Creatinine [Mass/Vol] 1.13 mg/dL Normal 0.70-1.30 [facility] Comment on above: Order Comment: 215.2 Result Comment: The validity of the calculated GFR GFRAA in patients over70 years has not been determined. Clinical correlation isessential. Performed By: #### L 501.9985, L500.4050, L100.0500 ####[facility] [address] [place], [address] EST GFR - AA 81 mL/min Normal >60 [facility] Comment on above: Order Comment: 215.2 Result Comment: Afri can Palestinian GFR Calc Performed By: #### L 501.9985, L500.4050, L100.0500 ####[facility] [address] [place], [address] GAP 4 Low 5-15 [facility] Comment on above: Order Comment: 215.2 Performed By: #### L 501.9985, L500.4050, L100.0500 ####[facility] [address] [place], [address] GFR/1.73 sq M.predicted among non-blacks MDRD (S/P/Bld) [Vol rate/Area] 67 mL/min/{1.73_m2} Normal >60 [facility] Comment on above: Order Comment: 215.2 Result Comment: Non- GFR Calc Performed By: #### L 501.9985, L500.4050, L100.0500 ####[facility] [address] [place], [address] Globulin (S) [Mass/Vol] 3.0 g/dL Normal 2.2-4.2 [facility] Comment on above: Order Comment: 215.2 Performed By: #### L 501.9985, L500.4050, L100.0500 ####[facility] [address] [place], [address] Glucose [Mass/Vol] 128 mg/dL High 74-106 [facility] Comment on above: Order Comment: 215.2 Result Comment: Fast ing Glucose result greater than or equal to 126 mg/dLsuggests DIABETES MELLITUS per A.D.A. criteria. Performed By: #### L 501.9985, L500.4050, L100.0500 ####[facility] [address] [place], [address] Potassium [Moles/Vol] 4.2 mmol/L Normal 3.5-5.1 [facility] Comment on above: Order Comment: 215.2 Performed By: #### L 501.9985, L500.4050, L100.0500 ####[facility] [address] [place], [address] Sodium [Moles/Vol] 141 mmol/L Normal 136-145 [facility] Comment on above: Order Comment: 215.2 Performed By: #### L 501.9985, L500.4050, L100.0500 ####[facility] [address] [place], [address] T PROT 6.1 g/dL Low 6.4-8.2 [facility] Comment on above: Order Comment: 215.2 Performed By: #### L 501.9985, L500.4050, L100.0500 ####[facility] [address] [place], [address] Urea nitrogen [Mass/Vol] 24 mg/dL High 7-18 [facility] Comment on above: Order Comment: 215.2 Performed By: #### L 501.9985, L500.4050, L100.0500 ####[facility] [address] [place], [address] Hemoglobin A1con 04-14-2024 HbA1c (Bld) [Mass fraction] 6.5 % High 3.8-5.6 [facility] Comment on above: Order Comment: 215.2 Result Comment: Norm al < 5.7 % Prediabetic 5.7 - 6.4 % Diabetic >or= 6.5 % Please note range changes. Performed By: #### L 501.9985, L500.4050, L100.0500 ####[facility] [address] [place], [address] Urine Cultureon 04-11-2024 U[facility] Culture exhibits no growth. Normal [facility] Comment on above: Performed By: #### M 100.2200, L100.0500, L400.0001 ####[facility] [address] [place], [address] CBC-Complete Blood Cnt No Di ffon 04-10-2024 Erythrocyte distribution width (RBC) [Ratio] 14.5 % Normal 11.6-14.6 [facility] Comment on above: Order Comment: 215-2 Performed By: #### M 100.2200, L100.0500, L400.0001 ####[facility] [address] [place], [address] Hematocrit (Bld) [Volume fraction] 41.3 % Normal 40-54 [facility] Comment on above: Order Comment: 215-2 Performed By: #### M 100.2200, L100.0500, L400.0001 ####[facility] [address] [place], [address] Hemoglobin (Bld) [Mass/Vol] 13.1 g/dL Normal 13.0-16. 5 [facility] Comment on above: Order Comment: 215-2 Performed By: #### M 100.2200, L100.0500, L400.0001 ####[facility] [address] [place], [address] MCH (RBC) [Entitic mass] 27.3 pg Normal 27.0-32.0 [facility] Comment on above: Order Comment: 215-2 Performed By: #### M 100.2200, L100.0500, L400.0001 ####[facility] [address] [place], [address] MCHC (RBC) [Mass/Vol] 31.7 g/dL Low 32-36 [facility] Comment on above: Order Comment: 215-2 Performed By: #### M 100.2200, L100.0500, L400.0001 ####[facility] [address] [place], [address] MCV (RBC) [Entitic vol] 86.0 fL Normal 80-94 [facility] Comment on above: Order Comment: 215-2 Performed By: #### M 100.2200, L100.0500, L400.0001 ####[facility] [address] [place], [address] Platelet mean volume (Bld) [Entitic vol] 9.4 fL Normal 6.2-12.0 [facility] Comment on above: Order Comment: 215-2 Performed By: #### M 100.2200, L100.0500, L400.0001 ####[facility] [address] [place], [address] Platelets (Bld) [#/Vol] 256 10*3/uL Normal 150-450 [facility] Comment on above: Order Comment: 215-2 Performed By: #### M 100.2200, L100.0500, L400.0001 ####[facility] [address] [place], [address] RBC (Bld) [#/Vol] 4.80 10*6/uL Normal 4.6-6.2 [facility] Comment on above: Order Comment: 215-2 Performed By: #### M 100.2200, L100.0500, L400.0001 ####[facility] [address] [place], [address] RDW SD 45.0 fl High 35.1-43.9 [facility] Comment on above: Order Comment: 215-2 Performed By: #### M 100.2200, L100.0500, L400.0001 ####[facility] [address] [place], [address] WBC (Bld) [#/Vol] 10.8 10*3/uL Normal 4.4-11.0 [facility] Comment on above: Order Comment: 215-2 Performed By: #### M 100.2200, L100.0500, L400.0001 ####[facility] [address] [place], [address] Urinalysis, Completeon 04-10 BACTERIA 0 SEEN Normal None Seen [facility] Comment on above: Order Comment: LEILA TER SPECIMEN Performed By: #### M 100.2200, L100.0500, L400.0001 ####[facility] [address] [place], [address] EPI,SQUAMOUS 0 SEEN Normal 0-5 [facility] Comment on above: Order Comment: LEILA TER SPECIMEN Performed By: #### M 100.2200, L100.0500, L400.0001 ####[facility] [address] [place], [address] Mucus Ql (Urine sed) 0 SEEN Normal [facility] Comment on above: Order Comment: LEILA TER SPECIMEN Performed By: #### M 100.2200, L100.0500, L400.0001 ####[facility] [address] [place], [address] RBC 0 SEEN Normal 0-5 [facility] Comment on above: Order Comment: LEILA TER SPECIMEN Performed By: #### M 100.2200, L100.0500, L400.0001 ####[facility] [address] [place], [address] WBC 0 SEEN Normal 0-5 [facility] Comment on above: Order Comment: LEILA TER SPECIMEN Performed By: #### M 100.2200, L100.0500, L400.0001 ####[facility] [address] [place], [address] CBC-Complete Blood Cnt No Di ffon 04-09-2024 Erythrocyte distribution width (RBC) [Ratio] 14.6 % Normal 11.6-14.6 [facility] Comment on above: Order Comment: 215.2 Performed By: #### L 100.0500 ####[facility] [address] [place], [address] Hematocrit (Bld) [Volume fraction] 39.6 % Low 40-54 [facility] Comment on above: Order Comment: 215.2 Performed By: #### L 100.0500 ####[facility] [address] [place], [address] Hemoglobin (Bld) [Mass/Vol] 12.4 g/dL Low 13.0-16. 5 [facility] Comment on above: Order Comment: 215.2 Performed By: #### L 100.0500 ####[facility] [address] [place], [address] MCH (RBC) [Entitic mass] 27.0 pg Normal 27.0-32.0 [facility] Comment on above: Order Comment: 215.2 Performed By: #### L 100.0500 ####[facility] [address] [place], [address] MCHC (RBC) [Mass/Vol] 31.3 g/dL Low 32-36 [facility] Comment on above: Order Comment: 215.2 Performed By: #### L 100.0500 ####[facility] [address] [place], [address] MCV (RBC) [Entitic vol] 86.3 fL Normal 80-94 [facility] Comment on above: Order Comment: 215.2 Performed By: #### L 100.0500 ####[facility] [address] [place], [address] Platelet mean volume (Bld) [Entitic vol] 9.4 fL Normal 6.2-12.0 [facility] Comment on above: Order Comment: 215.2 Performed By: #### L 100.0500 ####[facility] [address] [place], [address] Platelets (Bld) [#/Vol] 223 10*3/uL Normal 150-450 [facility] Comment on above: Order Comment: 215.2 Performed By: #### L 100.0500 ####[facility] [address] [place], [address] RBC (Bld) [#/Vol] 4.59 10*6/uL Low 4.6-6.2 [facility] Comment on above: Order Comment: 215.2 Performed By: #### L 100.0500 ####[facility] [address] [place], [address] RDW SD 45.5 fl High 35.1-43.9 [facility] Comment on above: Order Comment: 215.2 Performed By: #### L 100.0500 ####[facility] [address] [place], [address] WBC (Bld) [#/Vol] 11.9 10*3/uL High 4.4-11.0 [facility] Comment on above: Order Comment: 215.2 Performed By: #### L 100.0500 ####[facility] [address] [place], [address] CBC W/Diff, Automatedon 03-16-2023 Absolute Lymph 2.54 X10 3/uL Normal 0.83-4.51 [facility] Comment on above: Performed By: #### L 500.4050, L500.4100, L100.0100 ####[facility] [address] [place], [address] Absolute Neut 7.3 X10 3/uL Normal 2.0-7.7 [facility] Comment on above: Performed By: #### L 500.4050, L500.4100, L100.0100 ####[facility] [address] [place], [address] Basophils/100 WBC (Bld) 0.3 % Normal 0-1 [facility] Comment on above: Performed By: #### L 500.4050, L500.4100, L100.0100 ####[facility] [address] [place], [address] Eosinophils/100 WBC (Bld) 3.7 % Normal 0-5 [facility] Comment on above: Performed By: #### L 500.4050, L500.4100, L100.0100 ####[facility] [address] [place], [address] Erythrocyte distribution width (RBC) [Ratio] 14.6 % Normal 11.6-14.6 [facility] Comment on above: Performed By: #### L 500.4050, L500.4100, L100.0100 ####[facility] [address] [place], [address] Hematocrit (Bld) [Volume fraction] 40.4 % Normal 40-54 [facility] Comment on above: Performed By: #### L 500.4050, L500.4100, L100.0100 ####[facility] [address] [place], [address] Hemoglobin (Bld) [Mass/Vol] 12.7 g/dL Low 13.0-16. 5 [facility] Comment on above: Performed By: #### L 500.4050, L500.4100, L100.0100 ####[facility] [address] [place], [address] IG% 2.000 High 0.0-0.9 [facility] Comment on above: Result Comment: IG% - Immature Granulocytes (promyelocytes, myelocytes andmetamyelocytes) > 1% indicates that a LEFT SHIFT is Present. Performed By: #### L 500.4050, L500.4100, L100.0100 ####[facility] [address] [place], [address] Lymphocytes/100 WBC (Bld) 22.8 % Normal 19-41 [facility] Comment on above: Performed By: #### L 500.4050, L500.4100, L100.0100 ####[facility] [address] [place], [address] MCH (RBC) [Entitic mass] 27.3 pg Normal 27.0-32.0 [facility] Comment on above: Performed By: #### L 500.4050, L500.4100, L100.0100 ####[facility] [address] [place], [address] MCHC (RBC) [Mass/Vol] 31.4 g/dL Low 32-36 [facility] Comment on above: Performed By: #### L 500.4050, L500.4100, L100.0100 ####[facility] [address] [place], [address] MCV (RBC) [Entitic vol] 86.7 fL Normal 80-94 [facility] Comment on above: Performed By: #### L 500.4050, L500.4100, L100.0100 ####[facility] [address] [place], [address] Monocytes/100 WBC (Bld) 6.3 % Normal 0-10 [facility] Comment on above: Performed By: #### L 500.4050, L500.4100, L100.0100 ####[facility] [address] [place], [address] Neutrophils/100 WBC (Bld) 64.9 % Normal 47-70 [facility] Comment on above: Performed By: #### L 500.4050, L500.4100, L100.0100 ####[facility] [address] [place], [address] Nucleated RBC (Bld) [#/Vol] 0 10*3/uL Normal 0-5 [facility] Comment on above: Performed By: #### L 500.4050, L500.4100, L100.0100 ####[facility] [address] [place], [address] Platelet mean volume (Bld) [Entitic vol] 9.3 fL Normal 6.2-12.0 [facility] Comment on above: Performed By: #### L 500.4050, L500.4100, L100.0100 ####[facility] [address] [place], [address] Platelets (Bld) [#/Vol] 243 10*3/uL Normal 150-450 [facility] Comment on above: Performed By: #### L 500.4050, L500.4100, L100.0100 ####[facility] [address] [place], [address] RBC (Bld) [#/Vol] 4.66 10*6/uL Normal 4.6-6.2 [facility] Comment on above: Performed By: #### L 500.4050, L500.4100, L100.0100 ####[facility] [address] [place], [address] RDW SD 45.9 fl High 35.1-43.9 [facility] Comment on above: Performed By: #### L 500.4050, L500.4100, L100.0100 ####[facility] [address] [place], [address] WBC (Bld) [#/Vol] 11.2 10*3/uL High 4.4-11.0 [facility] Comment on above: Performed By: #### L 500.4050, L500.4100, L100.0100 ####[facility] [address] [place], [address] Comprehensive Metabolic Prof [facility] 04-08-2024 Albumin [Mass/Vol] 3.1 g/dL Low 3.2-5.0 [facility] Comment on above: Performed By: #### L 500.4050, L500.4100, L100.0100 ####[facility] [address] [place], [address] Albumin/Globulin [Mass ratio] 1.1 {ratio} Normal 0.9-2.4 [facility] Comment on above: Performed By: #### L 500.4050, L500.4100, L100.0100 ####[facility] [address] [place], [address] ALK P 97 U/L Normal 45-117 [facility] Comment on above: Performed By: #### L 500.4050, L500.4100, L100.0100 ####[facility] [address] [place], [address] ALT [Catalytic activity/Vol] 18 U/L Normal 16-61 [facility] Comment on above: Performed By: #### L 500.4050, L500.4100, L100.0100 ####[facility] [address] [place], [address] AST [Catalytic activity/Vol] 7 U/L Low 15-37 [facility] Comment on above: Performed By: #### L 500.4050, L500.4100, L100.0100 ####[facility] [address] [place], [address] Bilirubin [Mass/Vol] 0.40 mg/dL Normal 0.20-1.00 [facility] Comment on above: Result Comment: For patients on eltrombopag therapy, use of Dimension [place] TBIL is not recommended. Performed By: #### L 500.4050, L500.4100, L100.0100 ####[facility] [address] [place], [address] BUN/CRE 29.1 RATIO High 10-20 [facility] Comment on above: Performed By: #### L 500.4050, L500.4100, L100.0100 ####[facility] [address] [place], [address] CA,Total 9.3 mg/dL Normal 8.5-10.1 [facility] Comment on above: Performed By: #### L 500.4050, L500.4100, L100.0100 ####[facility] [address] [place], [address] Chloride [Moles/Vol] 106 mmol/L Normal 98-107 [facility] Comment on above: Performed By: #### L 500.4050, L500.4100, L100.0100 ####[facility] [address] [place], [address] CO2 [Moles/Vol] 29.0 mmol/L Normal 21.0-32.0 [facility] Comment on above: Performed By: #### L 500.4050, L500.4100, L100.0100 ####[facility] [address] [place], [address] Creatinine [Mass/Vol] 1.10 mg/dL Normal 0.70-1.30 [facility] Comment on above: Result Comment: The validity of the calculated GFR GFRAA in patients over70 years has not been determined. Clinical correlation isessential. Performed By: #### L 500.4050, L500.4100, L100.0100 ####[facility] [address] [place], [address] EST GFR - AA 84 mL/min Normal >60 [facility] Comment on above: Result Comment: Afri can Palestinian GFR Calc Performed By: #### L 500.4050, L500.4100, L100.0100 ####[facility] [address] [place], [address] GAP 5 Normal 5-15 [facility] Comment on above: Performed By: #### L 500.4050, L500.4100, L100.0100 ####[facility] [address] [place], [address] GFR/1.73 sq M.predicted among non-blacks MDRD (S/P/Bld) [Vol rate/Area] 69 mL/min/{1.73_m2} Normal >60 [facility] Comment on above: Result Comment: Non- GFR Calc Performed By: #### L 500.4050, L500.4100, L100.0100 ####[facility] [address] [place], [address] Globulin (S) [Mass/Vol] 2.8 g/dL Normal 2.2-4.2 [facility] Comment on above: Performed By: #### L 500.4050, L500.4100, L100.0100 ####[facility] [address] [place], [address] Glucose [Mass/Vol] 133 mg/dL High 74-106 [facility] Comment on above: Result Comment: Fast ing Glucose result greater than or equal to 126 mg/dLsuggests DIABETES MELLITUS per A.D.A. criteria. Performed By: #### L 500.4050, L500.4100, L100.0100 ####[facility] [address] [place], [address] Potassium [Moles/Vol] 3.8 mmol/L Normal 3.5-5.1 [facility] Comment on above: Performed By: #### L 500.4050, L500.4100, L100.0100 ####[facility] [address] [place], [address] Sodium [Moles/Vol] 140 mmol/L Normal 136-145 [facility] Comment on above: Performed By: #### L 500.4050, L500.4100, L100.0100 ####[facility] [address] [place], [address] T PROT 5.9 g/dL Low 6.4-8.2 [facility] Comment on above: Performed By: #### L 500.4050, L500.4100, L100.0100 ####[facility] [address] [place], [address] Urea nitrogen [Mass/Vol] 32 mg/dL High 7-18 [facility] Comment on above: Performed By: #### L 500.4050, L500.4100, L100.0100 ####[facility] [address] [place], [address] Lipid Profileon 04-08-2024 Cholesterol [Mass/Vol] 100 mg/dL Normal 200 [facility] Comment on above: Result Comment: <200 mg/dL Desirable 200-240 mg/dL Borderline >240 mg/dL High Risk Performed By: #### L 500.4050, L500.4100, L100.0100 ####[facility] [address] [place], [address] Cholesterol in HDL [Mass/Vol] 34 mg/dL Low [facility] Comment on above: Result Comment: The drugs N-Acetylcysteine and Metamizole may falselydepress this assay. Reference Range HDL <40 mg/dL Low HDL Cholesterol HDL >or= 60 mg/dL High HDL Cholesterol Performed By: #### L 500.4050, L500.4100, L100.0100 ####[facility] [address] [place], [address] Cholesterol in LDL [Mass/Vol] 36 mg/dL Normal 0-130 [facility] Comment on above: Performed By: #### L 500.4050, L500.4100, L100.0100 ####[facility] [address] [place], [address] Cholesterol in VLDL [Mass/Vol] 30 mg/dL Normal 5-40 [facility] Comment on above: Performed By: #### L 500.4050, L500.4100, L100.0100 ####[facility] [address] [place], [address] Triglyceride [Mass/Vol] 148 mg/dL Normal [facility] Comment on above: Result Comment: The drugs N-Acetylcysteine and Metamizole may falselydepress this assay.Serum Triglycerides Reference Interval Normal <150 mg/dL Borderline high 150 - 199 mg/dL High 200 - 499 mg/dL Very High > or = 500 mg/dL Performed By: #### L 500.4050, L500.4100, L100.0100 ####[facility] [address] [place], [place], [address] Cardiology Visit Reporton Cardiology Visit Report Normal [facility] Protime w/INR Fingerstickon 03-02-2024 INR Coag (PPP) [Relative time] 1.7 {INR} Normal [facility] Comment on above: Result Comment: Crit ical Value > 4.0 Performed By: #### L 9200.0000 ####[facility] [address] [place], [place], [address] Protime Coagsen 18.4 SEC High 11.7-14.9 [facility] Comment on above: Performed By: #### L 9200.0000 ####[facility] [address] [place], [place], [address] Laboratory - CoagulationOrde red By: Walter Becker on 10-25-2023 INR Coag (Bld) [Relative time] 3.2 {INR} [facility] PT Coag (PPP) [Time] 32.9 s 11.7-14.9 [facility] Laboratory - CoagulationOrde red By: Walter Becker on 10-16-2023 INR Coag (Bld) [Relative time] 1.9 {INR} [facility] PT Coag (PPP) [Time] 21.6 s 11.7-14.9 [facility] Basophil percentageOrdered B y: Walter Becker on 10-08-2023 Cholesterol [Mass/Vol] 107 mg/dL <200 [facility] Comment on above: <200 mg/dL Desirable 200-240 mg/dL Borderline >240 mg/dL High Risk Triglyceride [Mass/Vol] 133 mg/dL <199 [facility] Comment on above: The drugs N-Acetylcy steine and Metamizole may falsely depress this assay.Serum Triglycerides Reference Interval Normal <150 mg/dL Borderline high 150 - 199 mg/dL High 200 - 499 mg/dL Very High > or = 500 mg/dL Laboratory - Chemistry and C hemistry - challengeOrdered By: Walter Becker on 10-08-2023 ALT [Catalytic activity/Vol] 18 U/L 16-61 [facility] Cholesterol in HDL [Mass/Vol] 35 mg/dL >40 [facility] Comment on above: The drugs N-Acetylcy steine and Metamizole may falsely depress this assay. Reference Range HDL <40 mg/dL Low HDL Cholesterol HDL >or= 60 mg/dL High HDL Cholesterol Cholesterol in LDL [Mass/Vol] 45 mg/dL 0-130 [facility] CK [Catalytic activity/Vol] 59 U/L 39-308 [facility] No Panel InformationOrdered By: Walter Becker on 10-08-2023 VLDL Cholesterol 27 mg/dL 5-40 [facility] Thin prep Papanicolaou smear with manual screeningOrdered By: Walter Becker on 10-08-2023 Thin prep Papanicolaou smear with manual screening 10 U/L 15-37 [facility] Capillary blood internationa l normalized ratio (INR)Ordered By: Walter Becker on 10-04-2023 INR Coag (BldC) [Relative time] 2.2 [facility] Comment on above: Critical Value > 4.0 Whole blood prothrombin time Ordered By: Walter Becker on 10-04-2023 PT Coag (Bld) [Time] 22.6 s 11.7-14.9 [facility] Capillary blood internationa l normalized ratio (INR)Ordered By: Walter Becker on 10-01-2023 INR Coag (BldC) [Relative time] 1.9 [facility] Comment on above: Critical Value > 4.0 Whole blood prothrombin time Ordered By: Walter Becker on 10-01-2023 PT Coag (Bld) [Time] 19.9 s 11.7-14.9 [facility] Basophil percentageOrdered B y: Walter Becker on 09-25-2023 Bilirubin [Mass/Vol] 0.30 mg/dL 0.20-1.00 [facility] Comment on above: For patients on eltr ombopag therapy, use of Dimension [place] TBIL is not recommended. Chloride [Moles/Vol] 105 mmol/L 98-107 [facility] Glucose [Mass/Vol] 125 mg/dL 74-106 [facility] Comment on above: Fasting Glucose resu lt from 100 to 125 mg/dL suggests IMPAIRED HOMEOSTASIS per A.D.A. criteria. Hemoglobin (Bld) [Mass/Vol] 12.6 g/dL 13.0-16. 5 [facility] Potassium [Moles/Vol] 4.2 mmol/L 3.5-5.1 [facility] Protein [Mass/Vol] 6.2 g/dL 6.4-8.2 [facility] Sodium [Moles/Vol] 140 mmol/L 136-145 [facility] WBC (Bld) [#/Vol] 10.6 10*3/uL 4.4-11.0 [facility] Determination of erythrocyte mean corpuscular volume (MCV)Ordered By: Walter Becker on 09-25-2023 MCV (RBC) [Entitic vol] 85.8 fL 80-94 [facility] Erythrocyte distribution wid th ratioOrdered By: Walter Becker on 09-25-2023 Erythrocyte distribution width (RBC) [Ratio] 13.7 % 11.6-14.6 [facility] Erythrocyte distribution wid th standard deviationOrdered By: Walter Becker on 09-25-2023 Erythrocyte distribution width (RBC) [Entitic vol] 42.4 fL 35.1-43.9 [facility] Hematocrit Auto (Bld) [Volum e fraction]Ordered By: Walter Becker on 09-25-2023 Hematocrit (Bld) [Volume fraction] 39.4 % 40-54 [facility] Laboratory - Chemistry and C hemistry - challengeOrdered By: Walter Becker on 09-25-2023 Albumin/Globulin [Mass ratio] 1.1 {ratio} 0.9-2.4 [facility] ALP [Catalytic activity/Vol] 107 U/L 45-117 [facility] ALT [Catalytic activity/Vol] 19 U/L 16-61 [facility] CO2 [Moles/Vol] 29.0 mmol/L 21.0-32.0 [facility] Globulin (S) [Mass/Vol] 3.0 g/dL 2.2-4.2 [facility] Urea nitrogen/Creatinine [Mass ratio] 29.8 mg/mg 10-20 [facility] Laboratory - CoagulationOrde red By: Walter Becker on 09-25-2023 INR Coag (Bld) [Relative time] 2.8 {INR} [facility] PT Coag (PPP) [Time] 28.9 s 11.7-14.9 [facility] Laboratory - Hematology and Cell countsOrdered By: Walter Becker on 09-25-2023 MCH (RBC) [Entitic mass] 27.5 pg 27.0-32.0 [facility] MCHC (RBC) [Mass/Vol] 32.0 g/dL 32-36 [facility] Platelet mean volume (Bld) [Entitic vol] 9.9 fL 6.2-12.0 [facility] Platelets (Bld) [#/Vol] 235 10*3/uL 150-450 [facility] No Panel InformationOrdered By: Walter Becker on 09-25-2023 Estimated GFR (MDRD) Amer 75 mL/min >60 [facility] Comment on above: GFR Calc Estimated GFR (MDRD) Non-Af Amer 62 mL/min >60 [facility] Comment on above: Non- GFR Calc RBC Auto (Bld) [#/Vol]Ordere d By: Walter Becker on 09-25-2023 RBC (Bld) [#/Vol] 4.59 10*6/uL 4.6-6.2 [facility] Serum or plasma calcium antoine urement (mass/volume)Ordered By: Walter Becker on 09-25-2023 Calcium [Mass/Vol] 9.6 mg/dL 8.5-10.1 [facility] Serum or plasma creatinine m easurement (mass/volume)Ordered By: Walter Becker on 09-25-2023 Creatinine [Mass/Vol] 1.21 mg/dL 0.70-1.30 [facility] Comment on above: The validity of the calculated GFR & GFRAA in patients over 70 years has not been determined. Clinical correlation is essential. Serum or plasma urea nitroge n measurement (mass/volume)Ordered By: Walter Becker on 09-25-2023 Urea nitrogen [Mass/Vol] 36 mg/dL 7-18 [facility] Thin prep Papanicolaou smear with manual screeningOrdered By: Walter Becker on 09-25-2023 Thin prep Papanicolaou smear with manual screening 3.2 g/dL 3.2-5.0 [facility] Thin prep Papanicolaou smear with manual screening 11 U/L 15-37 [facility] Thin prep Papanicolaou smear with manual screening 6 5-15 [facility] Laboratory - CoagulationOrde red By: Walter Becker on 09-18-2023 INR Coag (Bld) [Relative time] 1.6 {INR} [facility] PT Coag (PPP) [Time] 18.7 s 11.7-14.9 [facility] Capillary blood internationa l normalized ratio (INR)Ordered By: Walter Becker on 09-13-2023 INR Coag (BldC) [Relative time] 3.1 [facility] Comment on above: Critical Value > 4.0 Whole blood prothrombin time Ordered By: Walter Becker on 09-13-2023 PT Coag (Bld) [Time] 33.3 s 11.7-14.9 [facility] Capillary blood internationa l normalized ratio (INR)Ordered By: Walter Becker on 09-12-2023 INR Coag (BldC) [Relative time] 1.7 [facility] Comment on above: Critical Value > 4.0 Whole blood prothrombin time Ordered By: Walter Becker on 09-12-2023 PT Coag (Bld) [Time] 19.2 s 11.7-14.9 [facility] Capillary blood internationa l normalized ratio (INR)Ordered By: Walter Becker on 09-09-2023 INR Coag (BldC) [Relative time] 2.9 [facility] Comment on above: Critical Value > 4.0 Whole blood prothrombin time Ordered By: Walter Becker on 09-09-2023 PT Coag (Bld) [Time] 31.5 s 11.7-14.9 [facility] Laboratory - CoagulationOrde red By: Walter Becker on 08-26-2023 INR Coag (Bld) [Relative time] 2.2 {INR} [facility] PT Coag (PPP) [Time] 24.7 s 11.7-14.9 [facility] Capillary blood internationa l normalized ratio (INR)Ordered By: Walter Becker on 08-19-2023 INR Coag (BldC) [Relative time] 2.7 [facility] Comment on above: Critical Value > 4.0 Whole blood prothrombin time Ordered By: Walter Becker on 08-19-2023 PT Coag (Bld) [Time] 29.2 s 11.7-14.9 [facility] Capillary blood internationa l normalized ratio (INR)Ordered By: Walter Becker on 08-12-2023 INR Coag (BldC) [Relative time] 2.5 [facility] Comment on above: Critical Value > 4.0 Whole blood prothrombin time Ordered By: Walter Becker on 08-12-2023 PT Coag (Bld) [Time] 26.7 s 11.7-14.9 [facility] Capillary blood internationa l normalized ratio (INR)Ordered By: Walter Becker on 08-05-2023 INR Coag (BldC) [Relative time] 1.9 [facility] Comment on above: Critical Value > 4.0 Whole blood prothrombin time Ordered By: Walter Becker on 08-05-2023 PT Coag (Bld) [Time] 20.7 s 11.7-14.9 [facility] Laboratory - CoagulationOrde red By: Walter Becker on 07-29-2023 INR Coag (Bld) [Relative time] 2.3 {INR} [facility] Comment on above: Critical Value > 4.0 Whole blood prothrombin time Ordered By: Walter Becker on 07-29-2023 PT Coag (Bld) [Time] 25.0 s 11.7-14.9 [facility] Laboratory - CoagulationOrde red By: Walter Becker on 07-22-2023 INR Coag (Bld) [Relative time] 2.0 {INR} [facility] Comment on above: Critical Value > 4.0 Whole blood prothrombin time Ordered By: Walter Becker on 07-22-2023 PT Coag (Bld) [Time] 22.4 s 11.7-14.9 [facility] Laboratory - CoagulationOrde red By: Walter Becker on 07-19-2023 INR Coag (Bld) [Relative time] 3.4 {INR} [facility] Comment on above: Critical Value > 4.0 Whole blood prothrombin time Ordered By: Walter Becker on 07-19-2023 PT Coag (Bld) [Time] 36.2 s 11.7-14.9 [facility] Laboratory - CoagulationOrde red By: Walter Becker on 07-17-2023 INR Coag (Bld) [Relative time] 3.0 {INR} [facility] Comment on above: Critical Value > 4.0 Whole blood prothrombin time Ordered By: Walter Becker on 07-17-2023 PT Coag (Bld) [Time] 32.2 s 11.7-14.9 [facility] Laboratory - CoagulationOrde red By: Walter Becker on 07-10-2023 INR Coag (Bld) [Relative time] 2.3 {INR} [facility] Comment on above: Critical Value > 4.0 Whole blood prothrombin time Ordered By: Walter Becker on 07-10-2023 PT Coag (Bld) [Time] 25.4 s 11.7-14.9 [facility] Laboratory - CoagulationOrde red By: Walter Becker on 07-03-2023 INR Coag (Bld) [Relative time] 1.5 {INR} [facility] Comment on above: Critical Value > 4.0 Whole blood prothrombin time Ordered By: Walter Becker on 07-03-2023 PT Coag (Bld) [Time] 16.5 s 11.7-14.9 [facility] Laboratory - CoagulationOrde red By: Walter Becker on 06-26-2023 INR Coag (Bld) [Relative time] 2.3 {INR} [facility] Comment on above: Critical Value > 4.0 Whole blood prothrombin time Ordered By: Walter Becker on 06-26-2023 PT Coag (Bld) [Time] 24.7 s 11.7-14.9 [facility] Laboratory - CoagulationOrde red By: Walter Becker on 06-25-2023 INR Coag (Bld) [Relative time] 3.2 {INR} [facility] Comment on above: Critical Value > 4.0 Whole blood prothrombin time Ordered By: Walter Becker on 06-25-2023 PT Coag (Bld) [Time] 34.3 s 11.7-14.9 [facility] Laboratory - CoagulationOrde red By: Walter Becker on 06-24-2023 INR Coag (Bld) [Relative time] 3.4 {INR} [facility] Comment on above: Critical Value > 4.0 Whole blood prothrombin time Ordered By: Walter Becker on 06-24-2023 PT Coag (Bld) [Time] 36.4 s 11.7-14.9 [facility] Laboratory - CoagulationOrde red By: Walter Becker on 06-17-2023 INR Coag (Bld) [Relative time] 2.4 {INR} [facility] Comment on above: Critical Value > 4.0 Whole blood prothrombin time Ordered By: Walter Becker on 06-17-2023 PT Coag (Bld) [Time] 26.1 s 11.7-14.9 [facility] Laboratory - CoagulationOrde red By: Walter Becker on 06-10-2023 INR Coag (Bld) [Relative time] 1.4 {INR} [facility] Comment on above: Critical Value > 4.0 Whole blood prothrombin time Ordered By: Walter Becker on 06-10-2023 PT Coag (Bld) [Time] 15.9 s 11.7-14.9 [facility] Glucose Glucometer (BldC) [M ass/Vol]Ordered By: Kee Merritt on 06-03-2023 Glucose [Mass/Vol] 130 mg/dL 74-106 [facility] Comment on above: MANAGEMENT OF PATIEN T CARE PER NURSING PROTOCOL Laboratory - CoagulationOrde red By: Walter Becker on 05-20-2023 INR Coag (Bld) [Relative time] 2.6 {INR} [facility] Comment on above: Critical Value > 4.0 No Panel InformationOrdered By: Walter Becker on 05-20-2023 2.6 [facility] Whole blood prothrombin time Ordered By: Walter Becker on 05-20-2023 PT Coag (Bld) [Time] 27.6 s 11.7-14.9 [facility] Basophil percentageOrdered B y: Walter Becker on 05-15-2023 Basophil percentage 0 SEEN /hpf 0-5 [facility] Basophil percentage 114 mg/dL 74-106 [facility] Basophil percentage 5.9 g/dL 6.4-8.2 [facility] Basophil percentage 0.40 mg/dL 0.20-1.00 [facility] Basophil percentage 140 mmol/L 136-145 [facility] Basophil percentage 4.1 mmol/L 3.5-5.1 [facility] Basophil percentage 105 mmol/L 98-107 [facility] Basophils (Bld) [#/Vol] 10.4 10*3/uL 4.4-11.0 [facility] Bilirubin [Mass/Vol] 0.40 mg/dL 0.20-1.00 [facility] Comment on above: For patients on eltr ombopag therapy, use of Dimension [place] TBIL is not recommended. Chloride [Moles/Vol] 105 mmol/L 98-107 [facility] Glucose [Mass/Vol] 114 mg/dL 74-106 [facility] Comment on above: Fasting Glucose resu lt from 100 to 125 mg/dL suggests IMPAIRED HOMEOSTASIS per A.D.A. criteria. Potassium [Moles/Vol] 4.1 mmol/L 3.5-5.1 [facility] Protein [Mass/Vol] 5.9 g/dL 6.4-8.2 [facility] Sodium [Moles/Vol] 140 mmol/L 136-145 [facility] WBC (Bld) [#/Vol] 10.4 10*3/uL 4.4-11.0 [facility] Bilirubin Test strip Ql (U)O rdered By: Walter Becker on 05-15-2023 Bilirubin Ql (U) Negative Negative [facility] Blood erythrocytes count (nu mber/volume)Ordered By: Walter Becker on 05-15-2023 RBC (Bld) [#/Vol] 4.37 10*6/uL 4.6-6.2 [facility] Blood hemoglobin measurement (mass/volume)Ordered By: Walter Becker on 05-15-2023 Hemoglobin (Bld) [Mass/Vol] 11.6 g/dL 13.0-16. 5 [facility] Blood platelet mean volumeOr dered By: Walter Becker on 05-15-2023 Platelet mean volume (Bld) [Entitic vol] 9.4 fL 6.2-12.0 [facility] Culture, urineOrdered By: Horner on 05-15-2023 Bacteria identified Cx Nom (U) Culture exhibits no growth. [facility] Determination of erythrocyte mean corpuscular volume (MCV)Ordered By: Walter Becker on 05-15-2023 MCV (RBC) [Entitic vol] 84.7 fL 80-94 [facility] Hematocrit Auto (Bld) [Volum e fraction]Ordered By: Walter Becker on 05-15-2023 Hematocrit (Bld) [Volume fraction] 37.0 % 40-54 [facility] Ketones Test strip Ql (U)Ord ered By: Walter Becker on 05-15-2023 Ketones Ql (U) Negative Negative [facility] Laboratory - Chemistry and C hemistry - challengeOrdered By: Walter Becker on 05-15-2023 ALP [Catalytic activity/Vol] 97 U/L 45-117 [facility] ALT [Catalytic activity/Vol] 21 U/L 16-61 [facility] CO2 [Moles/Vol] 28.0 mmol/L 21.0-32.0 [facility] Globulin (S) [Mass/Vol] 3.0 g/dL 2.2-4.2 [facility] Urea nitrogen/Creatinine [Mass ratio] 30.7 mg/mg 10-20 [facility] Laboratory - Hematology and Cell countsOrdered By: Walter Becker on 05-15-2023 Erythrocyte distribution width (RBC) [Entitic vol] 43.3 fL 35.1-43.9 [facility] Erythrocyte distribution width (RBC) [Ratio] 14.1 % 11.6-14.6 [facility] MCH (RBC) [Entitic mass] 26.5 pg 27.0-32.0 [facility] MCHC Auto (RBC) [Mass/Vol]Or dered By: Walter Becker on 05-15-2023 MCHC (RBC) [Mass/Vol] 31.4 g/dL 32-36 [facility] Mucus LM Ql (Urine sed)Order ed By: Walter Becker on 05-15-2023 Mucus Ql (Urine sed) 0 SEEN /hpf [facility] Nitrite Test strip Ql (U)Ord ered By: Walter Becker on 05-15-2023 Nitrite Ql (U) Negative Negative [facility] No Panel InformationOrdered By: Walter Becker on 05-15-2023 Estimated GFR (MDRD) Amer 96 mL/min >60 [facility] Comment on above: GFR Calc Estimated GFR (MDRD) Non-Af Amer 79 mL/min >60 [facility] Comment on above: Non- GFR Calc 26.5 pg 27.0-32.0 [facility] 14.1 % 11.6-14.6 [facility] 43.3 fl 35.1-43.9 [facility] 79 mL/min >60 [facility] 96 mL/min >60 [facility] 30.7 RATIO 10-20 [facility] 3.0 g/dL 2.2-4.2 [facility] 97 U/L 45-117 [facility] 21 U/L 16-61 [facility] 28.0 mmol/L 21.0-32.0 [facility] Platelets bldOrdered By: Crystal Becker on 05-15-2023 Platelets (Bld) [#/Vol] 256 10*3/uL 150-450 [facility] Protein Test strip Ql (U)Ord ered By: Walter Becker on 05-15-2023 Protein Ql (U) Negative Negative [facility] Serum or plasma albumin antoine urement (mass/volume)Ordered By: Waletr Becker on 05-15-2023 Albumin [Mass/Vol] 2.9 g/dL 3.2-5.0 [facility] Serum or plasma albumin/glob ulin mass ratioOrdered By: Walter Becker on 05-15-2023 Albumin/Globulin [Mass ratio] 1.0 {ratio} 0.9-2.4 [facility] Serum or plasma calcium antoine urement (mass/volume)Ordered By: Walter Bekcer on 05-15-2023 Calcium [Mass/Vol] 8.8 mg/dL 8.5-10.1 [facility] Serum or plasma creatinine m easurement (mass/volume)Ordered By: Walter Becker on 05-15-2023 Creatinine [Mass/Vol] 0.98 mg/dL 0.70-1.30 [facility] Comment on above: The validity of the calculated GFR & GFRAA in patients over 70 years has not been determined. Clinical correlation is essential. Serum or plasma urea nitroge n measurement (mass/volume)Ordered By: Walter Becker on 05-15-2023 Urea nitrogen [Mass/Vol] 30 mg/dL 7-18 [facility] Squamous epithelial cells de tection in urine sediment by light microscopyOrdered By: Walter Becker on 05-15-2023 Epithelial cells.squamous LM Ql (Urine sed) 0 SEEN /hpf 0-5 [facility] Thin prep Papanicolaou smear with manual screeningOrdered By: Walter Becker on 05-15-2023 Thin prep Papanicolaou smear with manual screening 9 U/L 15-37 [facility] Thin prep Papanicolaou smear with manual screening 7 5-15 [facility] Urine blood detectionOrdered By: Walter Becker on 05-15-2023 RBC Ql (U) Negative Negative [facility] RBC Ql (U) 0 SEEN /hpf 0-5 [facility] Urine clarityOrdered By: Crystal Becker on 05-15-2023 Clarity (U) Clear Clear [facility] Urine color determinationOrd ered By: Walter Becker on 05-15-2023 Color (U) Yellow Yellow [facility] Urine glucose detectionOrder ed By: Walter Becker on 05-15-2023 Glucose Ql (U) Normal mg/dl Normal [facility] Urine leukocyte esterase det ection by dipstickOrdered By: Walter Becker on 05-15-2023 Leukocyte esterase Test strip Ql (U) Negative Negative [facility] Urine pHOrdered By: Walter floyd on 05-15-2023 pH (U) 5.0 [pH] 5.0 - 8.0 [facility] Urine sediment bacteria coun t by microscopy (number/high power field)Ordered By: Walter Becker on 05-15-2023 Bacteria LM.HPF (Urine sed) [#/Area] 0 /[HPF] None Seen [facility] Urine specific gravity measu rementOrdered By: Walter Becker on 05-15-2023 Specific gravity (U) [Rel density] 1.010 1.002-1.03 0 [facility] Urobilinogen Auto test strip Ql (U)Ordered By: Walter Becker on 05-15-2023 Urobilinogen Ql (U) Normal mg/dl Normal [facility] Basophil percentageOrdered B y: Walter Becker on 05-06-2023 Basophil percentage 135 mg/dL 74-106 [facility] Basophil percentage 5.9 g/dL 6.4-8.2 [facility] Basophil percentage 0.40 mg/dL 0.20-1.00 [facility] Basophil percentage 140 mmol/L 136-145 [facility] Basophil percentage 3.7 mmol/L 3.5-5.1 [facility] Basophil percentage 106 mmol/L 98-107 [facility] Basophils (Bld) [#/Vol] 9.4 10*3/uL 4.4-11.0 [facility] Bilirubin [Mass/Vol] 0.40 mg/dL 0.20-1.00 [facility] Comment on above: For patients on eltr ombopag therapy, use of Dimension [place] TBIL is not recommended. Chloride [Moles/Vol] 106 mmol/L 98-107 [facility] Glucose [Mass/Vol] 135 mg/dL 74-106 [facility] Comment on above: Fasting Glucose resu lt greater than or equal to 126 mg/dL suggests DIABETES MELLITUS per A.D.A. criteria. Potassium [Moles/Vol] 3.7 mmol/L 3.5-5.1 [facility] Protein [Mass/Vol] 5.9 g/dL 6.4-8.2 [facility] Sodium [Moles/Vol] 140 mmol/L 136-145 [facility] WBC (Bld) [#/Vol] 9.4 10*3/uL 4.4-11.0 [facility] Blood erythrocytes count (nu mber/volume)Ordered By: Walter Becker on 05-06-2023 RBC (Bld) [#/Vol] 4.49 10*6/uL 4.6-6.2 [facility] Blood hemoglobin measurement (mass/volume)Ordered By: Walter Becker on 05-06-2023 Hemoglobin (Bld) [Mass/Vol] 12.0 g/dL 13.0-16. 5 [facility] Blood platelet mean volumeOr dered By: Walter Becker on 05-06-2023 Platelet mean volume (Bld) [Entitic vol] 9.5 fL 6.2-12.0 [facility] Determination of erythrocyte mean corpuscular volume (MCV)Ordered By: Walter Becker on 05-06-2023 MCV (RBC) [Entitic vol] 85.7 fL 80-94 [facility] Hematocrit Auto (Bld) [Volum e fraction]Ordered By: Walter Becker on 05-06-2023 Hematocrit (Bld) [Volume fraction] 38.5 % 40-54 [facility] INR in Blood by Coagulation assayOrdered By: Walter Becker on 05-06-2023 INR Coag (Bld) [Relative time] 2.5 {INR} [facility] Laboratory - Chemistry and C hemistry - challengeOrdered By: Walter Becker on 05-06-2023 ALP [Catalytic activity/Vol] 93 U/L 45-117 [facility] ALT [Catalytic activity/Vol] 23 U/L 16-61 [facility] CO2 [Moles/Vol] 29.0 mmol/L 21.0-32.0 [facility] Globulin (S) [Mass/Vol] 2.9 g/dL 2.2-4.2 [facility] Urea nitrogen/Creatinine [Mass ratio] 25.8 mg/mg 10-20 [facility] Laboratory - CoagulationOrde red By: Walter Becker on 05-06-2023 PT Coag (PPP) [Time] 27.5 s 11.7-14.9 [facility] Laboratory - Hematology and Cell countsOrdered By: Walter Becker on 05-06-2023 Erythrocyte distribution width (RBC) [Entitic vol] 44.4 fL 35.1-43.9 [facility] Erythrocyte distribution width (RBC) [Ratio] 14.2 % 11.6-14.6 [facility] MCH (RBC) [Entitic mass] 26.7 pg 27.0-32.0 [facility] MCHC Auto (RBC) [Mass/Vol]Or dered By: Walter Becker on 05-06-2023 MCHC (RBC) [Mass/Vol] 31.2 g/dL 32-36 [facility] No Panel InformationOrdered By: Walter Becker on 05-06-2023 Estimated GFR (MDRD) Amer 102 mL/min >60 [facility] Comment on above: GFR Calc Estimated GFR (MDRD) Non-Af Amer 84 mL/min >60 [facility] [facility] [place] [facility] Comment on above: Non- GFR Calc 26.7 pg 27.0-32.0 [facility] 14.2 % 11.6-14.6 [facility] 44.4 fl 35.1-43.9 [facility] 27.5 SECONDS 11.7-14.9 [facility] 84 mL/min >60 [facility] 102 mL/min >60 [facility] 25.8 RATIO 10- [facility] 2.9 g/dL 2.2-4.2 [facility] 93 U/L 45-117 [facility] 23 U/L 16-61 [facility] 29.0 mmol/L 21.0-32.0 [facility] Platelets bldOrdered By: Crystal Becker on 05-06-2023 Platelets (Bld) [#/Vol] 238 10*3/uL 150-450 [facility] Serum or plasma albumin antoine urement (mass/volume)Ordered By: Walter Becker on 05-06-2023 Albumin [Mass/Vol] 3.0 g/dL 3.2-5.0 [facility] Serum or plasma albumin/glob ulin mass ratioOrdered By: Walter Becker on 05-06-2023 Albumin/Globulin [Mass ratio] 1.0 {ratio} 0.9-2.4 [facility] Serum or plasma calcium antoine urement (mass/volume)Ordered By: Walter Becker on 05-06-2023 Calcium [Mass/Vol] 9.1 mg/dL 8.5-10.1 [facility] Serum or plasma creatinine m easurement (mass/volume)Ordered By: Walter Becker on 05-06-2023 Creatinine [Mass/Vol] 0.93 mg/dL 0.70-1.30 [facility] Comment on above: The validity of the calculated GFR & GFRAA in patients over 70 years has not been determined. Clinical correlation is essential. Serum or plasma urea nitroge n measurement (mass/volume)Ordered By: Walter Becker on 05-06-2023 Urea nitrogen [Mass/Vol] 24 mg/dL 7-18 [facility] Thin prep Papanicolaou smear with manual screeningOrdered By: Walter Becker on 05-06-2023 Thin prep Papanicolaou smear with manual screening 10 U/L 15-37 [facility] Thin prep Papanicolaou smear with manual screening 5 5-15 [facility] Laboratory - CoagulationOrde red By: Walter Becker on 04-29-2023 INR Coag (Bld) [Relative time] 2.8 {INR} [facility] Comment on above: Critical Value > 4.0 No Panel InformationOrdered By: Walter Becker on 04-29-2023 2.8 [facility] Whole blood prothrombin time Ordered By: Walter Becker on 04-29-2023 PT Coag (Bld) [Time] 29.6 s 11.7-14.9 [facility] Laboratory - CoagulationOrde red By: Walter Becker on 04-15-2023 INR Coag (Bld) [Relative time] 2.5 {INR} [facility] Comment on above: Critical Value > 4.0 No Panel InformationOrdered By: Walter Becker on 04-15-2023 2.5 [facility] Whole blood prothrombin time Ordered By: Walter Becker on 04-15-2023 PT Coag (Bld) [Time] 27.3 s 11.7-14.9 [facility] Basophil percentageOrdered B y: Walter Becker on 04-09-2023 Basophil percentage 115 mg/dL 74-106 [facility] Basophil percentage 5.8 g/dL 6.4-8.2 [facility] Basophil percentage 0.40 mg/dL 0.20-1.00 [facility] Basophil percentage 141 mmol/L 136-145 [facility] Basophil percentage 3.9 mmol/L 3.5-5.1 [facility] Basophil percentage 106 mmol/L 98-107 [facility] Basophils (Bld) [#/Vol] 10.2 10*3/uL 4.4-11.0 [facility] Bilirubin [Mass/Vol] 0.40 mg/dL 0.20-1.00 [facility] Comment on above: For patients on eltr ombopag therapy, use of Dimension [place] TBIL is not recommended. Chloride [Moles/Vol] 106 mmol/L 98-107 [facility] Glucose [Mass/Vol] 115 mg/dL 74-106 [facility] Comment on above: Fasting Glucose resu lt from 100 to 125 mg/dL suggests IMPAIRED HOMEOSTASIS per A.D.A. criteria. Potassium [Moles/Vol] 3.9 mmol/L 3.5-5.1 [facility] Protein [Mass/Vol] 5.8 g/dL 6.4-8.2 [facility] Sodium [Moles/Vol] 141 mmol/L 136-145 [facility] WBC (Bld) [#/Vol] 10.2 10*3/uL 4.4-11.0 [facility] Blood erythrocytes count (nu mber/volume)Ordered By: Walter Becker on 04-09-2023 RBC (Bld) [#/Vol] 4.16 10*6/uL 4.6-6.2 [facility] Blood hemoglobin measurement (mass/volume)Ordered By: Walter Becker on 04-09-2023 Hemoglobin (Bld) [Mass/Vol] 11.3 g/dL 13.0-16. 5 [facility] Blood platelet mean volumeOr dered By: Walter Becker on 04-09-2023 Platelet mean volume (Bld) [Entitic vol] 9.4 fL 6.2-12.0 [facility] Determination of erythrocyte mean corpuscular volume (MCV)Ordered By: Walter Becker on 04-09-2023 MCV (RBC) [Entitic vol] 86.5 fL 80-94 [facility] Hematocrit Auto (Bld) [Volum e fraction]Ordered By: Walter Becker on 04-09-2023 Hematocrit (Bld) [Volume fraction] 36.0 % 40-54 [facility] Laboratory - Chemistry and C hemistry - challengeOrdered By: Walter Becker on 04-09-2023 ALP [Catalytic activity/Vol] 105 U/L 45-117 [facility] ALT [Catalytic activity/Vol] 22 U/L 16-61 [facility] CO2 [Moles/Vol] 31.0 mmol/L 21.0-32.0 [facility] Globulin (S) [Mass/Vol] 2.9 g/dL 2.2-4.2 [facility] Urea nitrogen/Creatinine [Mass ratio] 29.9 mg/mg 10-20 [facility] Laboratory - Hematology and Cell countsOrdered By: Walter Becker on 04-09-2023 Erythrocyte distribution width (RBC) [Entitic vol] 46.8 fL 35.1-43.9 [facility] Erythrocyte distribution width (RBC) [Ratio] 14.6 % 11.6-14.6 [facility] MCH (RBC) [Entitic mass] 27.2 pg 27.0-32.0 [facility] MCHC Auto (RBC) [Mass/Vol]Or dered By: Walter Becker on 04-09-2023 MCHC (RBC) [Mass/Vol] 31.4 g/dL 32-36 [facility] No Panel InformationOrdered By: Walter Becker on 04-09-2023 Estimated GFR (MDRD) Amer 101 mL/min >60 [facility] Comment on above: GFR Calc Estimated GFR (MDRD) Non-Af Amer 84 mL/min >60 [facility] Comment on above: Non- GFR Calc 27.2 pg 27.0-32.0 [facility] 14.6 % 11.6-14.6 [facility] 46.8 fl 35.1-43.9 [facility] 84 mL/min >60 [facility] 101 mL/min >60 [facility] 29.9 RATIO 10-20 [facility] 2.9 g/dL 2.2-4.2 [facility] 105 U/L 45-117 [facility] 22 U/L 16-61 [facility] 31.0 mmol/L 21.0-32.0 [facility] Platelets bldOrdered By: Crystal Becker on 04-09-2023 Platelets (Bld) [#/Vol] 229 10*3/uL 150-450 [facility] Serum or plasma albumin antoine urement (mass/volume)Ordered By: Walter Becker on 04-09-2023 Albumin [Mass/Vol] 2.9 g/dL 3.2-5.0 [facility] Serum or plasma albumin/glob ulin mass ratioOrdered By: Walter Becker on 04-09-2023 Albumin/Globulin [Mass ratio] 1.0 {ratio} 0.9-2.4 [facility] Serum or plasma calcium antoine urement (mass/volume)Ordered By: Walter Becker on 04-09-2023 Calcium [Mass/Vol] 9.0 mg/dL 8.5-10.1 [facility] Serum or plasma creatinine m easurement (mass/volume)Ordered By: Walter Becker on 04-09-2023 Creatinine [Mass/Vol] 0.94 mg/dL 0.70-1.30 [facility] Comment on above: The validity of the calculated GFR & GFRAA in patients over 70 years has not been determined. Clinical correlation is essential. Serum or plasma urea nitroge n measurement (mass/volume)Ordered By: Walter Becker on 04-09-2023 Urea nitrogen [Mass/Vol] 28 mg/dL 7-18 [facility] Thin prep Papanicolaou smear with manual screeningOrdered By: Walter Becker on 04-09-2023 Thin prep Papanicolaou smear with manual screening 7 U/L 15-37 [facility] Thin prep Papanicolaou smear with manual screening 4 5-15 [facility] Laboratory - CoagulationOrde red By: Walter Becker on 04-08-2023 INR Coag (Bld) [Relative time] 2.4 {INR} [facility] Comment on above: Critical Value > 4.0 No Panel InformationOrdered By: Walter Becker on 04-08-2023 2.4 [facility] Whole blood prothrombin time Ordered By: Walter Becker on 04-08-2023 PT Coag (Bld) [Time] 25.9 s 11.7-14.9 [facility] Laboratory - CoagulationOrde red By: Walter Becker on 04-01-2023 INR Coag (Bld) [Relative time] 1.9 {INR} [facility] Comment on above: Critical Value > 4.0 No Panel InformationOrdered By: Walter Becker on 04-01-2023 1.9 [facility] Whole blood prothrombin time Ordered By: Walter Becker on 04-01-2023 PT Coag (Bld) [Time] 21.0 s 11.7-14.9 [facility] Laboratory - CoagulationOrde red By: Walter Becker on 03-25-2023 INR Coag (Bld) [Relative time] 1.9 {INR} [facility] Comment on above: Critical Value > 4.0 No Panel InformationOrdered By: Walter Becker on 03-25-2023 1.9 [facility] Whole blood prothrombin time Ordered By: Walter Becker on 03-25-2023 PT Coag (Bld) [Time] 21.1 s 11.7-14.9 [facility] INR in Blood by Coagulation assayOrdered By: Walter Becker on 03-11-2023 INR Coag (Bld) [Relative time] 2.4 {INR} [facility] Laboratory - CoagulationOrde red By: Walter Becker on 03-11-2023 PT Coag (PPP) [Time] 26.6 s 11.7-14.9 [facility] No Panel InformationOrdered By: Walter Becker on 03-11-2023 26.6 SECONDS 11.7-14.9 [facility] Whole blood hemoglobin A1c/t otal hemoglobin ratio (mass fraction)Ordered By: Walter Becker on 03-11-2023 HbA1c (Bld) [Mass fraction] 5.5 % 3.8-5.6 [facility] Comment on above: Normal < 5.7 % Predi abetic 5.7 - 6.4 % Diabetic >or= 6.5 % Please note range changes. Basophil percentageOrdered B y: Walter Becker on 03-04-2023 Basophil percentage 114 mg/dL 74-106 [facility] Basophil percentage 5.8 g/dL 6.4-8.2 [facility] Basophil percentage 0.30 mg/dL 0.20-1.00 [facility] Basophil percentage 139 mmol/L 136-145 [facility] Basophil percentage 4.0 mmol/L 3.5-5.1 [facility] Basophil percentage 106 mmol/L 98-107 [facility] Bilirubin [Mass/Vol] 0.30 mg/dL 0.20-1.00 [facility] Comment on above: For patients on eltr ombopag therapy, use of Dimension [place] TBIL is not recommended. Chloride [Moles/Vol] 106 mmol/L 98-107 [facility] Glucose [Mass/Vol] 114 mg/dL 74-106 [facility] Comment on above: Fasting Glucose resu lt from 100 to 125 mg/dL suggests IMPAIRED HOMEOSTASIS per A.D.A. criteria. Potassium [Moles/Vol] 4.0 mmol/L 3.5-5.1 [facility] Protein [Mass/Vol] 5.8 g/dL 6.4-8.2 [facility] Sodium [Moles/Vol] 139 mmol/L 136-145 [facility] Blood hemoglobin measurement (mass/volume)Ordered By: Walter Becker on 03-04-2023 Hemoglobin (Bld) [Mass/Vol] 10.6 g/dL 13.0-16. 5 [facility] Hematocrit Auto (Bld) [Volum e fraction]Ordered By: Walter Becker on 03-04-2023 Hematocrit (Bld) [Volume fraction] 35.7 % 40-54 [facility] INR in Blood by Coagulation assayOrdered By: Walter Becker on 03-04-2023 INR Coag (Bld) [Relative time] 2.3 {INR} [facility] Laboratory - Chemistry and C hemistry - challengeOrdered By: Walter Becker on 03-04-2023 ALP [Catalytic activity/Vol] 92 U/L - [facility] ALT [Catalytic activity/Vol] 25 U/L - [facility] CO2 [Moles/Vol] 28.0 mmol/L 21.0-32.0 [facility] Globulin (S) [Mass/Vol] 3.0 g/dL 2.2-4.2 [facility] Urea nitrogen/Creatinine [Mass ratio] 33.0 mg/mg 05-03 [facility] Laboratory - CoagulationOrde red By: Walter Becker on 03-04-2023 PT Coag (PPP) [Time] 25.8 s 11.7-14.9 [facility] No Panel InformationOrdered By: Walter Becker on 03-04-2023 Estimated GFR (MDRD) Amer 88 mL/min >60 [facility] Comment on above: GFR Calc Estimated GFR (MDRD) Non-Af Amer 72 mL/min >60 [facility] Comment on above: Non- GFR Calc 25.8 SECONDS 11.7-14.9 [facility] 72 mL/min >60 [facility] 88 mL/min >60 [facility] 33.0 RATIO - [facility] 3.0 g/dL 2.2-4.2 [facility] 92 U/L - [facility] 25 U/L - [facility] 28.0 mmol/L 21.0-32.0 [facility] Serum or plasma albumin antoine urement (mass/volume)Ordered By: Walter Becker on 03-04-2023 Albumin [Mass/Vol] 2.8 g/dL 3.2-5.0 [facility] Serum or plasma albumin/glob ulin mass ratioOrdered By: Walter Becker on 03-04-2023 Albumin/Globulin [Mass ratio] 0.9 {ratio} 0.9-2.4 [facility] Serum or plasma calcium antoine urement (mass/volume)Ordered By: Walter Becker on 03-04-2023 Calcium [Mass/Vol] 9.1 mg/dL 8.5-10.1 [facility] Serum or plasma creatinine m easurement (mass/volume)Ordered By: Walter Becker on 03-04-2023 Creatinine [Mass/Vol] 1.06 mg/dL 0.70-1.30 [facility] Comment on above: The validity of the calculated GFR & GFRAA in patients over 70 years has not been determined. Clinical correlation is essential. Serum or plasma urea nitroge n measurement (mass/volume)Ordered By: Walter Becker on 03-04-2023 Urea nitrogen [Mass/Vol] 35 mg/dL 7-18 [facility] Thin prep Papanicolaou smear with manual screeningOrdered By: Walter Becker on 03-04-2023 Thin prep Papanicolaou smear with manual screening 12 U/L 15-37 [facility] Thin prep Papanicolaou smear with manual screening 5 5-15 [facility] Laboratory - CoagulationOrde red By: Walter Becker on 03-01-2023 INR Coag (Bld) [Relative time] 2.2 {INR} [facility] Comment on above: Critical Value > 4.0 No Panel InformationOrdered By: Walter Becker on 03-01-2023 2.2 [facility] Whole blood prothrombin time Ordered By: Walter Becker on 03-01-2023 PT Coag (Bld) [Time] 24.4 s 11.7-14.9 [facility] Blood hemoglobin measurement (mass/volume)Ordered By: Walter Becker on 02-25-2023 Hemoglobin (Bld) [Mass/Vol] 11.0 g/dL 13.0-16. 5 [facility] Hematocrit Auto (Bld) [Volum e fraction]Ordered By: Walter Becker on 02-25-2023 Hematocrit (Bld) [Volume fraction] 36.8 % 40-54 [facility] INR in Blood by Coagulation assayOrdered By: Walter Becker on 02-25-2023 INR Coag (Bld) [Relative time] 2.6 {INR} [facility] Laboratory - CoagulationOrde red By: Walter Becker on 02-25-2023 PT Coag (PPP) [Time] 28.0 s 11.7-14.9 [facility] No Panel InformationOrdered By: Walter Becker on 02-25-2023 28.0 SECONDS 11.7-14.9 [facility] Laboratory - CoagulationOrde red By: Walter Becker on 02-22-2023 INR Coag (Bld) [Relative time] 2.6 {INR} [facility] Comment on above: Critical Value > 4.0 No Panel InformationOrdered By: Walter Becker on 02-22-2023 2.6 [facility] Whole blood prothrombin time Ordered By: Walter Becker on 02-22-2023 PT Coag (Bld) [Time] 28.4 s 11.7-14.9 [facility] No Panel InformationOrdered By: Walter Becker on 02-20-2023 2.9 [facility] Whole blood prothrombin time Ordered By: Walter Becker on 02-20-2023 PT Coag (Bld) [Time] 30.7 s 11.7-14.9 [facility] Blood hemoglobin measurement (mass/volume)Ordered By: Walter Becker on 02-18-2023 Hemoglobin (Bld) [Mass/Vol] 8.8 g/dL 13.0-16. 5 [facility] Hematocrit Auto (Bld) [Volum e fraction]Ordered By: Walter Becker on 02-18-2023 Hematocrit (Bld) [Volume fraction] 28.2 % 40-54 [facility] INR in Blood by Coagulation assayOrdered By: Walter Becker on 02-18-2023 INR Coag (Bld) [Relative time] 2.8 {INR} [facility] No Panel InformationOrdered By: Walter Becker on 02-18-2023 29.5 SECONDS 11.7-14.9 [facility] No Panel InformationOrdered By: Walter Becker on 02-14-2023 2.2 [facility] Whole blood prothrombin time Ordered By: Walter Becker on 02-14-2023 PT Coag (Bld) [Time] 24.3 s 11.7-14.9 [facility] Absolute lymphocyte countOrd ered By: Gabriel Giraldo on 02-13-2023 Lymphocytes Auto (Unsp spec) [#/Vol] 0.84 10*3/uL 0.83-4.51 [facility] Basophil percentageOrdered B y: Gabriel Giraldo on 02-13-2023 Basophils (Bld) [#/Vol] 5.4 10*3/uL 4.4-11.0 [facility] Basophils (Bld) [#/Vol] 3.6 10*3/uL 2.0-7.7 [facility] Basophils/100 WBC (Bld) 67.5 % 47-70 [facility] Basophils/100 WBC (Bld) 4.1 % 0-5 [facility] Basophils/100 WBC (Bld) 0.4 % 0-1 [facility] Blood erythrocytes count (nu mber/volume)Ordered By: Gabriel Giraldo on 02-13-2023 RBC (Bld) [#/Vol] 2.76 10*6/uL 4.6-6.2 [facility] Blood hemoglobin measurement (mass/volume)Ordered By: Gabriel Giraldo on 02-13-2023 Hemoglobin (Bld) [Mass/Vol] 7.5 g/dL 13.0-16. 5 [facility] Blood lymphocytes/100 leukoc ytesOrdered By: Gabriel Giraldo on 02-13-2023 Lymphocytes/100 WBC (Bld) 15.7 % 19-41 [facility] Blood monocytes/100 leukocyt esOrdered By: Gabriel Giraldo on 02-13-2023 Monocytes/100 WBC (Bld) 11.2 % 0-10 [facility] Blood platelet mean volumeOr dered By: Gabriel Giraldo on 02-13-2023 Platelet mean volume (Bld) [Entitic vol] 9.2 fL 6.2-12.0 [facility] COVID-19 virus antigen assay Ordered By: Gabriel Giraldo on 02-13-2023 SARS-CoV-2 (COVID-19) Ag IA.rapid Ql (Resp) [facility] SARS-CoV-2 (COVID-19) Ag IA.rapid Ql (Resp) [facility] Determination of erythrocyte mean corpuscular volume (MCV)Ordered By: Gabriel Giraldo on 02-13-2023 MCV (RBC) [Entitic vol] 88.4 fL 80-94 [facility] Glucose Glucometer (BldC) [M ass/Vol]Ordered By: Gabriel Giraldo on 02-13-2023 Glucose [Mass/Vol] 146 mg/dL 74-106 [facility] Hematocrit Auto (Bld) [Volum e fraction]Ordered By: Gabriel Giraldo on 02-13-2023 Hematocrit (Bld) [Volume fraction] 24.4 % 40-54 [facility] MCHC Auto (RBC) [Mass/Vol]Or dered By: Gabriel Giraldo on 02-13-2023 MCHC (RBC) [Mass/Vol] 30.7 g/dL 32-36 [facility] No Panel InformationOrdered By: Gabriel Giraldo on 02-13-2023 27.2 pg 27.0-32.0 [facility] 16.6 % 11.6-14.6 [facility] 54.5 fl 35.1-43.9 [facility] 1.100 % 0.0-0.9 [facility] 0.9 % 0-5 [facility] Platelets bldOrdered By: Elis Giraldo on 02-13-2023 Platelets (Bld) [#/Vol] 194 10*3/uL 150-450 [facility] INR in Blood by Coagulation assayOrdered By: Gabriel Giraldo on 02-12-2023 INR Coag (Bld) [Relative time] 1.6 {INR} [facility] No Panel InformationOrdered By: Smith Leija on 02-12-2023 No growth in 5 days. [facility] No growth in 5 days. [facility] No Panel InformationOrdered By: Gabriel Giraldo on 02-12-2023 19.3 SECONDS 11.7-14.9 [facility] Basophil percentageOrdered B y: Dandy Sauer on 02-11-2023 Basophil percentage 2.2 mmol/L 0.4-2.0 [facility] Basophil percentage 2.8 mmol/L 0.4-2.0 [facility] Basophil percentageOrdered B y: Walter Becker on 02-11-2023 Basophil percentage 168 mg/dL 74-106 [facility] Basophil percentage 135 mmol/L 136-145 [facility] Basophil percentage 3.7 mmol/L 3.5-5.1 [facility] Basophil percentage 103 mmol/L 98-107 [facility] Basophils (Bld) [#/Vol] 10.2 10*3/uL 4.4-11.0 [facility] Blood erythrocytes count (nu mber/volume)Ordered By: Walter Becker on 02-11-2023 RBC (Bld) [#/Vol] 3.16 10*6/uL 4.6-6.2 [facility] Blood hemoglobin measurement (mass/volume)Ordered By: Walter Becker on 02-11-2023 Hemoglobin (Bld) [Mass/Vol] 8.7 g/dL 13.0-16. 5 [facility] Blood platelet mean volumeOr dered By: Walter Becker on 02-11-2023 Platelet mean volume (Bld) [Entitic vol] 9.3 fL 6.2-12.0 [facility] Determination of erythrocyte mean corpuscular volume (MCV)Ordered By: Walter Becker on 02-11-2023 MCV (RBC) [Entitic vol] 87.0 fL 80-94 [facility] Hematocrit Auto (Bld) [Volum e fraction]Ordered By: Walter Becker on 02-11-2023 Hematocrit (Bld) [Volume fraction] 27.5 % 40-54 [facility] INR in Blood by Coagulation assayOrdered By: Walter Becker on 02-11-2023 INR Coag (Bld) [Relative time] 1.5 {INR} [facility] MCHC Auto (RBC) [Mass/Vol]Or dered By: Walter Becker on 02-11-2023 MCHC (RBC) [Mass/Vol] 31.6 g/dL 32-36 [facility] No Panel InformationOrdered By: Walter Becker on 02-11-2023 27.5 pg 27.0-32.0 [facility] 17.3 % 11.6-14.6 [facility] 55.7 fl 35.1-43.9 [facility] 18.2 SECONDS 11.7-14.9 [facility] 67 mL/min >60 [facility] 81 mL/min >60 [facility] 21.1 RATIO 10-20 [facility] 27.0 mmol/L 21.0-32.0 [facility] Platelets bldOrdered By: Crystal Becker on 02-11-2023 Platelets (Bld) [#/Vol] 200 10*3/uL 150-450 [facility] Serum or plasma calcium antoine urement (mass/volume)Ordered By: Walter Becker on 02-11-2023 Calcium [Mass/Vol] 8.7 mg/dL 8.5-10.1 [facility] Serum or plasma creatinine m easurement (mass/volume)Ordered By: Walter Becker on 02-11-2023 Creatinine [Mass/Vol] 1.14 mg/dL 0.70-1.30 [facility] Serum or plasma urea nitroge n measurement (mass/volume)Ordered By: Walter Becker on 02-11-2023 Urea nitrogen [Mass/Vol] 24 mg/dL 7-18 [facility] Thin prep Papanicolaou smear with manual screeningOrdered By: Walter Becker on 02-11-2023 Thin prep Papanicolaou smear with manual screening 5 5-15 [facility] Absolute lymphocyte countOrd ered By: Geremias Carey on 02-10-2023 Lymphocytes Auto (Unsp spec) [#/Vol] 0.46 10*3/uL 0.83-4.51 [facility] Bacteria identified Cx Nom ( U)Ordered By: Geremias Caery on 02-10-2023 Culture, urine Klebsiella pneumonia e sp pneum [facility] Culture, urine Klebsiella pneumonia e sp pneum [facility] Basophil percentageOrdered B y: Geremias Carey on 02-10-2023 Basophil percentage 1.9 mmol/L 0.4-2.0 [facility] Basophil percentage 25-50 SEEN /hpf 0-5 [facility] Basophil percentage 158 mg/dL 74-106 [facility] Basophil percentage 5.6 g/dL 6.4-8.2 [facility] Basophil percentage 0.90 mg/dL 0.20-1.00 [facility] Basophil percentage 136 mmol/L 136-145 [facility] Basophil percentage 3.7 mmol/L 3.5-5.1 [facility] Basophil percentage 103 mmol/L 98-107 [facility] Basophils (Bld) [#/Vol] 10.8 10*3/uL 4.4-11.0 [facility] Basophils (Bld) [#/Vol] 9.2 10*3/uL 2.0-7.7 [facility] Basophils/100 WBC (Bld) 84.8 % 47-70 [facility] Basophils/100 WBC (Bld) 0.2 % 0-5 [facility] Basophils/100 WBC (Bld) 0.1 % 0-1 [facility] Bilirubin Test strip Ql (U)O rdered By: Geremias Carey on 02-10-2023 Bilirubin Ql (U) Negative Negative [facility] Blood erythrocytes count (nu mber/volume)Ordered By: Geremias Carey on 02-10-2023 RBC (Bld) [#/Vol] 3.20 10*6/uL 4.6-6.2 [facility] Blood hemoglobin measurement (mass/volume)Ordered By: Geremias Carey on 02-10-2023 Hemoglobin (Bld) [Mass/Vol] 8.8 g/dL 13.0-16. 5 [facility] Blood lymphocytes/100 leukoc ytesOrdered By: Geremias Carey on 02-10-2023 Lymphocytes/100 WBC (Bld) 4.3 % 19-41 [facility] Blood manual differential co mment interpretation (narrative result)Ordered By: Geremias Carey on 02-10-2023 Manual differential comment Ori (Bld) [Interp] SCANNED [facility] Blood monocytes/100 leukocyt esOrdered By: Geremias Carey on 02-10-2023 Monocytes/100 WBC (Bld) 9.8 % 0-10 [facility] Blood platelet mean volumeOr dered By: Geremias Carey on 02-10-2023 Platelet mean volume (Bld) [Entitic vol] 9.3 fL 6.2-12.0 [facility] Determination of erythrocyte mean corpuscular volume (MCV)Ordered By: Geremias Carey on 02-10-2023 MCV (RBC) [Entitic vol] 87.8 fL 80-94 [facility] Direct bilirubinOrdered By: Geremias Carey on 02-10-2023 Bilirubin.direct [Mass/Vol] 0.43 mg/dL 0.00-0.3 0 [facility] Hematocrit Auto (Bld) [Volum e fraction]Ordered By: Geremias Carey on 02-10-2023 Hematocrit (Bld) [Volume fraction] 28.1 % 40-54 [facility] INR in Blood by Coagulation assayOrdered By: Geremias Carey on 02-10-2023 INR Coag (Bld) [Relative time] 1.4 {INR} [facility] Influenza virus A and B and SARS-CoV-2 (COVID-19) Ag panel - Upper respiratory specimOrdered By: Geremias Carey on 02-10-2023 SARS-CoV-2 (COVID-19) RNA ANGELY+probe Ql (Resp) [facility] SARS-CoV-2 (COVID-19) RNA ANGELY+probe Ql (Resp) [facility] Ketones Test strip Ql (U)Ord ered By: Geremias Carey on 02-10-2023 Ketones Ql (U) 5 mg/dl Negative [facility] MCHC Auto (RBC) [Mass/Vol]Or dered By: Geremias Carey on 02-10-2023 MCHC (RBC) [Mass/Vol] 31.3 g/dL 32-36 [facility] Mucus LM Ql (Urine sed)Order ed By: Geremias Carey on 02-10-2023 Mucus Ql (Urine sed) 0 SEEN /hpf [facility] Nitrite Test strip Ql (U)Ord ered By: Geremias Carey on 02-10-2023 Nitrite Ql (U) Negative Negative [facility] No Panel InformationOrdered By: Geremias Carey on 02-10-2023 GNR lactose field kiln burner [facility] GNR lactose field kiln burner [facility] 27.5 pg 27.0-32.0 [facility] 17.3 % 11.6-14.6 [facility] 55.2 fl 35.1-43.9 [facility] 0.800 % 0.0-0.9 [facility] 0 % 0-5 [facility] 17.5 SECONDS 11.7-14.9 [facility] 42.1 Seconds 24.1-36.2 [facility] 70 mL/min >60 [facility] 85 mL/min >60 [facility] 66.18 ml/min [facility] 23.9 RATIO 10-20 [facility] 3.3 g/dL 2.2-4.2 [facility] 100 U/L 45-117 [facility] 18 U/L 16-61 [facility] 24.0 mmol/L 21.0-32.0 [facility] Platelets bldOrdered By: Luis Enrique Carey on 02-10-2023 Platelets (Bld) [#/Vol] 189 10*3/uL 150-450 [facility] Protein Test strip Ql (U)Ord ered By: Geremias Carey on 02-10-2023 Protein Ql (U) 100 mg/dl Negative [facility] Serum or plasma albumin antoine urement (mass/volume)Ordered By: Geremias Carey on 02-10-2023 Albumin [Mass/Vol] 2.3 g/dL 3.2-5.0 [facility] Serum or plasma calcium antoine urement (mass/volume)Ordered By: Geremias Carey on 02-10-2023 Calcium [Mass/Vol] 8.3 mg/dL 8.5-10.1 [facility] Serum or plasma creatinine m easurement (mass/volume)Ordered By: Geremias Carey on 02-10-2023 Creatinine [Mass/Vol] 1.09 mg/dL 0.70-1.30 [facility] Serum or plasma urea nitroge n measurement (mass/volume)Ordered By: Geremias Carey on 02-10-2023 Urea nitrogen [Mass/Vol] 26 mg/dL 7-18 [facility] Serum procalcitonin measurem entOrdered By: Geremias Caery on 02-10-2023 Procalcitonin [Mass/Vol] 1.43 ng/mL 0.00-0.09 [facility] Squamous epithelial cells de tection in urine sediment by light microscopyOrdered By: Geremias Carey on 02-10-2023 Epithelial cells.squamous LM Ql (Urine sed) 0 SEEN /hpf 0-5 [facility] Thin prep Papanicolaou smear with manual screeningOrdered By: Geremias Carey on 02-10-2023 Thin prep Papanicolaou smear with manual screening 10 U/L 15-37 [facility] Thin prep Papanicolaou smear with manual screening 9 5-15 [facility] Urine blood detectionOrdered By: Geremias Carey on 02-10-2023 RBC Ql (U) 250 /ul Negative [facility] RBC Ql (U) 25-50 SEEN /hpf 0-5 [facility] Urine clarityOrdered By: Luis Enrique Carey on 02-10-2023 Clarity (U) Sl. Cloudy Clear [facility] Urine color determinationOrd ered By: Geremias Carey on 02-10-2023 Color (U) Yellow Yellow [facility] Urine glucose detectionOrder ed By: Geremias Carey on 02-10-2023 Glucose Ql (U) Normal mg/dl Normal [facility] Urine leukocyte esterase det ection by dipstickOrdered By: Geremias Carey on 02-10-2023 Leukocyte esterase Test strip Ql (U) 500 /ul Negative [facility] Urine pHOrdered By: Geremias torrez on 02-10-2023 pH (U) 5.0 [pH] 5.0 - 8.0 [facility] Urine sediment bacteria coun t by microscopy (number/high power field)Ordered By: Geremias Carey on 02-10-2023 Bacteria LM.HPF (Urine sed) [#/Area] 4 /[HPF] None Seen [facility] Urine specific gravity measu rementOrdered By: Geremias Carey on 02-10-2023 Specific gravity (U) [Rel density] 1.015 1.002-1.03 0 [facility] Urobilinogen Auto test strip Ql (U)Ordered By: Geremias Carey on 02-10-2023 Urobilinogen Ql (U) Normal mg/dl Normal [facility] Blood hemoglobin measurement (mass/volume)Ordered By: Walter Becker on 02-07-2023 Hemoglobin (Bld) [Mass/Vol] 8.8 g/dL 13.0-16. 5 [facility] Hematocrit Auto (Bld) [Volum e fraction]Ordered By: Walter Becker on 02-07-2023 Hematocrit (Bld) [Volume fraction] 29.0 % 40-54 [facility] COVID-19 virus antigen assay Ordered By: Caryl Mcdermott on 02-05-2023 SARS-CoV-2 (COVID-19) Ag IA.rapid Ql (Resp) [facility] SARS-CoV-2 (COVID-19) Ag IA.rapid Ql (Resp) [facility] Glucose Glucometer (BldC) [M ass/Vol]Ordered By: Caryl Mcdermott on 02-05-2023 Glucose [Mass/Vol] 163 mg/dL 74-106 [facility] Absolute lymphocyte countOrd ered By: Yisel Rendon on 02-04-2023 Lymphocytes Auto (Unsp spec) [#/Vol] 1.39 10*3/uL 0.83-4.51 [facility] Basophil percentageOrdered B y: Yisel Rendon on 02-04-2023 Basophil percentage 151 mg/dL 74-106 [facility] Basophil percentage 141 mmol/L 136-145 [facility] Basophil percentage 3.5 mmol/L 3.5-5.1 [facility] Basophil percentage 110 mmol/L 98-107 [facility] Basophils (Bld) [#/Vol] 8.1 10*3/uL 4.4-11.0 [facility] Basophils (Bld) [#/Vol] 5.8 10*3/uL 2.0-7.7 [facility] Basophils/100 WBC (Bld) 71.5 % 47-70 [facility] Basophils/100 WBC (Bld) 2.6 % 0-5 [facility] Basophils/100 WBC (Bld) 0.1 % 0-1 [facility] Blood erythrocytes count (nu mber/volume)Ordered By: Yisel Rendon on 02-04-2023 RBC (Bld) [#/Vol] 3.23 10*6/uL 4.6-6.2 [facility] Blood hemoglobin measurement (mass/volume)Ordered By: Yisel Rendon on 02-04-2023 Hemoglobin (Bld) [Mass/Vol] 8.8 g/dL 13.0-16. 5 [facility] Blood lymphocytes/100 leukoc ytesOrdered By: Yisel Rendon on 02-04-2023 Lymphocytes/100 WBC (Bld) 17.2 % 19-41 [facility] Blood monocytes/100 leukocyt esOrdered By: Yisel Rendon on 02-04-2023 Monocytes/100 WBC (Bld) 6.3 % 0-10 [facility] Blood platelet mean volumeOr dered By: Yisel Rendon on 02-04-2023 Platelet mean volume (Bld) [Entitic vol] 8.8 fL 6.2-12.0 [facility] Determination of erythrocyte mean corpuscular volume (MCV)Ordered By: Yisel Rendon on 02-04-2023 MCV (RBC) [Entitic vol] 89.5 fL 80-94 [facility] Hematocrit Auto (Bld) [Volum e fraction]Ordered By: Yisel Rendon on 02-04-2023 Hematocrit (Bld) [Volume fraction] 28.9 % 40-54 [facility] MCHC Auto (RBC) [Mass/Vol]Or dered By: Yisel Rendon on 02-04-2023 MCHC (RBC) [Mass/Vol] 30.4 g/dL 32-36 [facility] No Panel InformationOrdered By: Yisel Rendon on 02-04-2023 27.2 pg 27.0-32.0 [facility] 17.8 % 11.6-14.6 [facility] 56.6 fl 35.1-43.9 [facility] 2.300 % 0.0-0.9 [facility] 0 % 0-5 [facility] 67 mL/min >60 [facility] 81 mL/min >60 [facility] 63.83 ml/min [facility] 10.6 RATIO 10-20 [facility] 25.0 mmol/L 21.0-32.0 [facility] Platelets bldOrdered By: José Luis Rendon on 02-04-2023 Platelets (Bld) [#/Vol] 341 10*3/uL 150-450 [facility] Serum or plasma calcium antoine urement (mass/volume)Ordered By: Yisel Rendon on 02-04-2023 Calcium [Mass/Vol] 8.4 mg/dL 8.5-10.1 [facility] Serum or plasma creatinine m easurement (mass/volume)Ordered By: Yisel Rendon on 02-04-2023 Creatinine [Mass/Vol] 1.13 mg/dL 0.70-1.30 [facility] Serum or plasma urea nitroge n measurement (mass/volume)Ordered By: Yisel Rendon on 02-04-2023 Urea nitrogen [Mass/Vol] 12 mg/dL 7-18 [facility] Thin prep Papanicolaou smear with manual screeningOrdered By: Yisel Rendon on 02-04-2023 Thin prep Papanicolaou smear with manual screening 6 5-15 [facility] Blood band neutrophil count as percentage of total leukocytesOrdered By: Yisel Rendon on 01-31-2023 Band form neutrophils/100 WBC (Bld) 3 % 0-5 [facility] Blood eosinophils/100 leukoc ytesOrdered By: Yisel Rendon on 01-31-2023 Eosinophils/100 WBC (Bld) 2 % 0-5 [facility] Blood lymphocytes/100 leukoc ytesOrdered By: Yisel Rendon on 01-31-2023 Lymphocytes/100 WBC (Bld) 22 % 19-41 [facility] Blood metamyelocytes/100 yolis kocytesOrdered By: Yisel Rendon on 01-31-2023 Metamyelocytes/100 WBC (Bld) 1 % 0-1 [facility] Blood monocytes/100 leukocyt esOrdered By: Yisel Rendon on 01-31-2023 Monocytes/100 WBC (Bld) 5 % 0-10 [facility] Blood platelet adequacy dete ction by light microscopyOrdered By: Yisel Rendon on 01-31-2023 Platelets LM Ql (Bld) ADEQUATE ADEQ [facility] Blood polychromasia detectio n by light microscopyOrdered By: Yisel Rendon on 01-31-2023 Polychromasia LM Ql (Bld) RARE [facility] Blood segmented neutrophils/ 100 leukocytesOrdered By: Yisel Rendon on 07-20-2023 Segmented neutrophils/100 WBC (Bld) 64 % 47-70 [facility] No Panel InformationOrdered By: Yisel Rendon on 01-31-2023 3 % 0-0 [facility] Review by pathologistOrdered By: Yisel Rendon on 01-31-2023 Pathologist review Ori (Unsp spec) [Interp] Reviewed [facility] Total cell countOrdered By: Yisel Rendon on 01-31-2023 Cells counted Molgen (Bld/Tiss) [#] 100 MANUAL DIFF [facility] Basophil percentageOrdered B y: Yisel Rendon on 01-30-2023 Basophil percentage 148 U/L 87-241 [facility] Blood manual differential co mment interpretation (narrative result)Ordered By: Yisel Rendon on 01-30-2023 Manual differential comment Ori (Bld) [Interp] SCANNED [facility] Hemoglobin in reticulocytes (mass per reticulocyte)Ordered By: Yisel Rendon on 01-30-2023 Hemoglobin (Reticulocytes) [Entitic mass] 22.8 pg 30-35 [facility] Hypochromatic red blood cell detectionOrdered By: Yisel Rendon on 01-30-2023 Hypochromia Ql (Bld) 1+ [facility] Iron measurement (mass/mass) Ordered By: Yisel Rendon on 01-30-2023 Iron (Unsp spec) [Mass/Mass] 28 ug/dL 65-175 [facility] No Panel InformationOrdered By: Yisel Rendon on 01-30-2023 RARE % [facility] 3.53 % 0.5-1.5 [facility] 40.30 % 3.00-15.90 [facility] 635 pg/mL 211-911 [facility] 166 ug/dL 250-450 [facility] Serum or plasma ferritin hank surement (mass/volume)Ordered By: Yisel Rendon on 01-30-2023 Ferritin [Mass/Vol] 138 ng/mL 26-388 [facility] Serum or plasma folate measu rement (mass/volume)Ordered By: Yisel Rendon on 01-30-2023 Folate [Mass/Vol] 4.60 ng/mL 3.1-55.4 [facility] Serum or plasma iron saturat ion measurement (mass fraction)Ordered By: Yisel Rendon on 01-30-2023 Iron saturation [Mass fraction] 16.9 % 15.0-55.0 [facility] No Panel InformationOrdered By: Yisel Rendon on 01-29-2023 RARE [facility] Vancomycin troughOrdered By: Karen Aly on 01-29-2023 Vancomycin trough [Mass/Vol] 7.8 ug/mL 5.0-15.0 [facility] Basophil percentageOrdered B y: Karen Jermain on 01-28-2023 Basophil percentage 5.8 g/dL 6.4-8.2 [facility] Basophil percentage 0.70 mg/dL 0.20-1.00 [facility] No Panel InformationOrdered By: Karen Jermain on 01-28-2023 3.8 g/dL 2.2-4.2 [facility] 81 U/L 45-117 [facility] 85 U/L 16-61 [facility] Serum or plasma albumin antoine urement (mass/volume)Ordered By: Karen Aly on 01-28-2023 Albumin [Mass/Vol] 2.0 g/dL 3.2-5.0 [facility] Serum or plasma albumin/glob ulin mass ratioOrdered By: Karen Jermain on 01-28-2023 Albumin/Globulin [Mass ratio] 0.5 {ratio} 0.9-2.4 [facility] Thin prep Papanicolaou smear with manual screeningOrdered By: Karen Aly on 01-28-2023 Thin prep Papanicolaou smear with manual screening 49 U/L 15-37 [facility] Absolute lymphocyte countOrd ered By: Syed Allen on 01-27-2023 Lymphocytes Auto (Unsp spec) [#/Vol] 1.35 10*3/uL 0.83-4.51 [facility] Basophil percentageOrdered B y: Karen Jermain on 01-27-2023 Basophil percentage 2.6 mg/dL 2.5-4.9 [facility] Basophil percentageOrdered B y: Syed Allen on 01-27-2023 Basophils/100 WBC (Bld) 0.1 % 0-1 [facility] Bilirubin [Mass/Vol] 0.50 mg/dL 0.20-1.00 [facility] Comment on above: For patients on eltr ombopag therapy, use of Dimension [place] TBIL is not recommended. Chloride [Moles/Vol] 111 mmol/L 98-107 [facility] Eosinophils/100 WBC (Bld) 2.9 % 0-5 [facility] Glucose [Mass/Vol] 215 mg/dL 74-106 [facility] Comment on above: Glucose result great er than or equal to 200 mg/dLsuggests DIABETES MELLITUS per A.D.A. criteria. Neutrophils (Bld) [#/Vol] 8.0 10*3/uL 2.0-7.7 [facility] Neutrophils/100 WBC (Bld) 73.8 % 47-70 [facility] Potassium [Moles/Vol] 4.0 mmol/L 3.5-5.1 [facility] Protein [Mass/Vol] 5.3 g/dL 6.4-8.2 [facility] Sodium [Moles/Vol] 140 mmol/L 136-145 [facility] WBC (Bld) [#/Vol] 10.9 10*3/uL 4.4-11.0 [facility] Blood erythrocytes count (nu mber/volume)Ordered By: Syed Allen on 01-27-2023 RBC (Bld) [#/Vol] 2.91 10*6/uL 4.6-6.2 [facility] Blood hemoglobin measurement (mass/volume)Ordered By: Syed Allen on 01-27-2023 Hemoglobin (Bld) [Mass/Vol] 8.2 g/dL 13.0-16. 5 [facility] Blood lymphocytes/100 leukoc ytesOrdered By: Syed Allen on 01-27-2023 Lymphocytes/100 WBC (Bld) 12.4 % 19-41 [facility] Blood monocytes/100 leukocyt esOrdered By: Syed Allen on 01-27-2023 Monocytes/100 WBC (Bld) 8.2 % 0-10 [facility] Blood platelet mean volumeOr dered By: Syed Allen on 01-27-2023 Platelet mean volume (Bld) [Entitic vol] 9.9 fL 6.2-12.0 [facility] Determination of erythrocyte mean corpuscular volume (MCV)Ordered By: Syed Allen on 01-27-2023 MCV (RBC) [Entitic vol] 88.0 fL 80-94 [facility] Hematocrit Auto (Bld) [Volum e fraction]Ordered By: Syed Allen on 01-27-2023 Hematocrit (Bld) [Volume fraction] 25.6 % 40-54 [facility] INR in Blood by Coagulation assayOrdered By: Syed Allen on 01-27-2023 INR Coag (Bld) [Relative time] 1.6 {INR} [facility] Laboratory - Chemistry and C hemistry - challengeOrdered By: Syed Allen on 01-27-2023 ALP [Catalytic activity/Vol] 78 U/L 45-117 [facility] ALT [Catalytic activity/Vol] 81 U/L 16-61 [facility] CO2 [Moles/Vol] 25.0 mmol/L 21.0-32.0 [facility] Globulin (S) [Mass/Vol] 3.5 g/dL 2.2-4.2 [facility] Lipase [Catalytic activity/Vol] 233 U/L 13-75 [facility] Comment on above: Please note:LIPASE r evised reference range effective 22. New Lipase methodology. Expected to produce lower values than the previous assay method. NEW Reference Range: 13 - 75 U/L Urea nitrogen/Creatinine [Mass ratio] 20.4 mg/mg 10-20 [facility] Laboratory - CoagulationOrde red By: Syed Allen on 01-27-2023 PT Coag (PPP) [Time] 19.4 s 11.7-14.9 [facility] Laboratory - Hematology and Cell countsOrdered By: Syed Allen on 01-27-2023 Erythrocyte distribution width (RBC) [Entitic vol] 49.3 fL 35.1-43.9 [facility] Erythrocyte distribution width (RBC) [Ratio] 15.5 % 11.6-14.6 [facility] Immature granulocytes/100 WBC (Bld) 2.600 % 0.0-0.9 [facility] Comment on above: IG% - Immature Granu locytes (promyelocytes, myelocytes and metamyelocytes) > 1% indicates that a LEFT SHIFT is Present. MCH (RBC) [Entitic mass] 28.2 pg 27.0-32.0 [facility] Nucleated RBC/100 WBC (Bld) [Ratio] 0.2 % 0-5 [facility] MCHC Auto (RBC) [Mass/Vol]Or dered By: Syed Allen on 01-27-2023 MCHC (RBC) [Mass/Vol] 32.0 g/dL 32-36 [facility] No Panel InformationOrdered By: Karen Jermain on 01-27-2023 Negative Negative [facility] 1.7 mg/dL 1.6-2.6 [facility] No Panel InformationOrdered By: Syed Allen on 01-27-2023 Estimated Creatinine Clearance Calc 50.80 ml/min [facility] Estimated GFR (MDRD) Amer 63 mL/min >60 [facility] Comment on above: GFR Calc Estimated GFR (MDRD) Non-Af Amer 52 mL/min >60 [facility] Comment on above: Non- GFR Calc 19.4 SECONDS 11.7-14.9 [facility] 233 U/L 13-75 [facility] Platelets bldOrdered By: Glenroy Allen on 01-27-2023 Platelets (Bld) [#/Vol] 259 10*3/uL 150-450 [facility] Serum or plasma albumin antoine urement (mass/volume)Ordered By: Syed Allen on 01-27-2023 Albumin [Mass/Vol] 1.8 g/dL 3.2-5.0 [facility] Serum or plasma albumin/glob ulin mass ratioOrdered By: Syed Allen on 01-27-2023 Albumin/Globulin [Mass ratio] 0.5 {ratio} 0.9-2.4 [facility] Serum or plasma calcium antoine urement (mass/volume)Ordered By: Syed Allen on 01-27-2023 Calcium [Mass/Vol] 8.3 mg/dL 8.5-10.1 [facility] Serum or plasma creatinine m easurement (mass/volume)Ordered By: Syed Allen on 01-27-2023 Creatinine [Mass/Vol] 1.42 mg/dL 0.70-1.30 [facility] Comment on above: The validity of the calculated GFR & GFRAA in patients over 70 years has not been determined. Clinical correlation is essential. Serum or plasma urea nitroge n measurement (mass/volume)Ordered By: Syed Allen on 01-27-2023 Urea nitrogen [Mass/Vol] 29 mg/dL 7-18 [facility] Serum procalcitonin measurem entOrdered By: Karen Jermain on 01-27-2023 Procalcitonin [Mass/Vol] 0.12 ng/mL 0.00-0.09 [facility] Thin prep Papanicolaou smear with manual screeningOrdered By: Syed Allen on 01-27-2023 Thin prep Papanicolaou smear with manual screening 68 U/L 15-37 [facility] Thin prep Papanicolaou smear with manual screening 4 5-15 [facility] Urine Legionella pneumophila antigen detectionOrdered By: Karen Aly on 01-27-2023 L. pneumophila Ag Ql (U) [facility] Absolute lymphocyte countOrd ered By: Ryan Tinoco on 01-26-2023 Lymphocytes Auto (Unsp spec) [#/Vol] 0.69 10*3/uL 0.83-4.51 [facility] Basophil percentageOrdered B y: Karen Jermain on 01-26-2023 Basophil percentage 2.4 mg/dL 2.5-4.9 [facility] Basophil percentageOrdered B y: Ryan Tinoco on 01-26-2023 Basophil percentage 235 mg/dL 74-106 [facility] Basophil percentage 143 mmol/L 136-145 [facility] Basophil percentage 3.8 mmol/L 3.5-5.1 [facility] Basophil percentage 114 mmol/L 98-107 [facility] Basophils (Bld) [#/Vol] 8.5 10*3/uL 4.4-11.0 [facility] Basophils (Bld) [#/Vol] 6.7 10*3/uL 2.0-7.7 [facility] Basophils/100 WBC (Bld) 0.1 % 0-1 [facility] Basophils/100 WBC (Bld) 78.4 % 47-70 [facility] Basophils/100 WBC (Bld) 1.6 % 0-5 [facility] Chloride [Moles/Vol] 114 mmol/L 98-107 [facility] Eosinophils/100 WBC (Bld) 1.6 % 0-5 [facility] Glucose [Mass/Vol] 235 mg/dL 74-106 [facility] Comment on above: Glucose result great er than or equal to 200 mg/dLsuggests DIABETES MELLITUS per A.D.A. criteria. Neutrophils (Bld) [#/Vol] 6.7 10*3/uL 2.0-7.7 [facility] Neutrophils/100 WBC (Bld) 78.4 % 47-70 [facility] Potassium [Moles/Vol] 3.8 mmol/L 3.5-5.1 [facility] Sodium [Moles/Vol] 143 mmol/L 136-145 [facility] WBC (Bld) [#/Vol] 8.5 10*3/uL 4.4-11.0 [facility] Blood erythrocytes count (nu mber/volume)Ordered By: Ryan Tinoco on 01-26-2023 RBC (Bld) [#/Vol] 3.06 10*6/uL 4.6-6.2 [facility] Blood hemoglobin measurement (mass/volume)Ordered By: Ryan Tinoco on 01-26-2023 Hemoglobin (Bld) [Mass/Vol] 8.6 g/dL 13.0-16. 5 [facility] Blood lymphocytes/100 leukoc ytesOrdered By: Ryan Tinoco on 01-26-2023 Lymphocytes/100 WBC (Bld) 8.1 % 19-41 [facility] Blood monocytes/100 leukocyt esOrdered By: Ryan Tinoco on 01-26-2023 Monocytes/100 WBC (Bld) 9.6 % 0-10 [facility] Blood platelet mean volumeOr dered By: Ryan Tinoco on 01-26-2023 Platelet mean volume (Bld) [Entitic vol] 9.9 fL 6.2-12.0 [facility] COVID-19 virus antigen assay Ordered By: Ryan Tinoco on 01-26-2023 SARS-CoV-2 (COVID-19) Ag IA.rapid Ql (Resp) [facility] SARS-CoV-2 (COVID-19) Ag IA.rapid Ql (Resp) [facility] Determination of erythrocyte mean corpuscular volume (MCV)Ordered By: Ryan Tinoco on 01-26-2023 MCV (RBC) [Entitic vol] 88.6 fL 80-94 [facility] Glucose Glucometer (BldC) [M ass/Vol]Ordered By: Ryan Tinoco on 01-26-2023 Glucose [Mass/Vol] 230 mg/dL 74-106 [facility] Comment on above: MANAGEMENT OF PATIEN T CARE PER NURSING PROTOCOL Hematocrit Auto (Bld) [Volum e fraction]Ordered By: Ryan Tinoco on 01-26-2023 Hematocrit (Bld) [Volume fraction] 27.1 % 40-54 [facility] Laboratory - Chemistry and C hemistry - challengeOrdered By: Ryan Tinoco on 01-26-2023 CO2 [Moles/Vol] 23.0 mmol/L 21.0-32.0 [facility] Urea nitrogen/Creatinine [Mass ratio] 18.8 mg/mg 10-20 [facility] Laboratory - Chemistry and C hemistry - challengeOrdered By: Karen Aly on 01-26-2023 Magnesium [Mass/Vol] 1.8 mg/dL 1.6-2.6 [facility] Laboratory - Hematology and Cell countsOrdered By: Ryan Tinoco on 01-26-2023 Erythrocyte distribution width (RBC) [Entitic vol] 50.6 fL 35.1-43.9 [facility] Erythrocyte distribution width (RBC) [Ratio] 15.9 % 11.6-14.6 [facility] Immature granulocytes/100 WBC (Bld) 2.200 % 0.0-0.9 [facility] Comment on above: IG% - Immature Granu locytes (promyelocytes, myelocytes and metamyelocytes) > 1% indicates that a LEFT SHIFT is Present. MCH (RBC) [Entitic mass] 28.1 pg 27.0-32.0 [facility] Nucleated RBC/100 WBC (Bld) [Ratio] 0.5 % 0-5 [facility] MCHC Auto (RBC) [Mass/Vol]Or dered By: Ryan Tinoco on 01-26-2023 MCHC (RBC) [Mass/Vol] 31.7 g/dL 32-36 [facility] No Panel InformationOrdered By: Ryan Tinoco on 01-26-2023 Estimated Creatinine Clearance Calc 48.41 ml/min [facility] Estimated GFR (MDRD) Amer 59 mL/min >60 [facility] Comment on above: GFR Calc Estimated GFR (MDRD) Non-Af Amer 49 mL/min >60 [facility] Comment on above: Non- GFR Calc 28.1 pg 27.0-32.0 [facility] 15.9 % 11.6-14.6 [facility] 50.6 fl 35.1-43.9 [facility] 2.200 % 0.0-0.9 [facility] 0.5 % 0-5 [facility] 49 mL/min >60 [facility] 59 mL/min >60 [facility] 48.41 ml/min [facility] 18.8 RATIO 10-20 [facility] 23.0 mmol/L 21.0-32.0 [facility] No Panel InformationOrdered By: Karen Aly on 01-26-2023 1.8 mg/dL 1.6-2.6 [facility] Platelets bldOrdered By: Jaziel Tinoco on 01-26-2023 Platelets (Bld) [#/Vol] 217 10*3/uL 150-450 [facility] Serum or plasma calcium antoine urement (mass/volume)Ordered By: Ryan Tinoco on 01-26-2023 Calcium [Mass/Vol] 8.5 mg/dL 8.5-10.1 [facility] Serum or plasma creatinine m easurement (mass/volume)Ordered By: Ryan Tinoco on 01-26-2023 Creatinine [Mass/Vol] 1.49 mg/dL 0.70-1.30 [facility] Comment on above: The validity of the calculated GFR & GFRAA in patients over 70 years has not been determined. Clinical correlation is essential. Serum or plasma urea nitroge n measurement (mass/volume)Ordered By: Ryan Tinoco on 01-26-2023 Urea nitrogen [Mass/Vol] 28 mg/dL 7-18 [facility] Thin prep Papanicolaou smear with manual screeningOrdered By: Ryan Tinoco on 01-26-2023 Thin prep Papanicolaou smear with manual screening 6 5-15 [facility] INR in Blood by Coagulation assayOrdered By: Ryan Tinoco on 01-25-2023 INR Coag (Bld) [Relative time] 1.6 {INR} [facility] Laboratory - CoagulationOrde red By: Ryan Tinoco on 01-25-2023 PT Coag (PPP) [Time] 19.1 s 11.7-14.9 [facility] No Panel InformationOrdered By: Ryan Tinoco on 01-25-2023 19.1 SECONDS 11.7-14.9 [facility] Albumin Elph [Mass/Vol]Order ed By: Liu Hackett on 01-22-2023 Albumin [Mass/Vol] 2.5 g/dL 2.9-4.4 [facility] Aldolase ser/plasOrdered By: Liu Hackett on 01-22-2023 Aldolase [Catalytic activity/Vol] 1.5 mU/mL 3.3-10.3 [facility] Comment on above: Performed at: [address] [id number] Director: Ernie Jacob PhD, Phone: [phone] at: [facility] Lab[address] [id number] Director: Lindsay Kearns MD, Phone: [phone] Atypical perinuclear antineu trophil cytoplasmic antibodies measurementOrdered By: Liu Hackett on 01-22-2023 Neutrophil cytoplasmic Ab.perinuclear.atypical IF (S) [Titer] <1:20 titer Neg:<1:20 [facility] Comment on above: The atypical pANCA p attern has been observed in asignificant percentage of patients with ulcerative colitis,primary sclerosing cholangitis and autoimmune hepatitis. Basophil percentageOrdered B y: Liu Hackett on 01-22-2023 Basophil percentage < 0.2 AI 0.0-0.9 [facility] Basophil percentage 3.4 mmol/L 0.4-2.0 [facility] Basophil percentage 136 U/L 87-241 [facility] Lactate [Moles/Vol] 3.4 mmol/L 0.4-2.0 [facility] Comment on above: Critical Result(s) C alled at: 12:30:42 01/22/2023 by: Aruna Morales. Inocencio Martin RN (ICU). Results read back by same. LDH [Catalytic activity/Vol] 136 U/L 87-241 [facility] Blood polychromasia detectio n by light microscopyOrdered By: Jesus Burnham on 01-22-2023 Polychromasia LM Ql (Bld) 1+ [facility] Interpretation of serum or p lasma protein pattern by immunofixation (narrative resultOrdered By: Liu Hackett on 01-22-2023 Protein Fractions Immunofixation Ori [Interp] See comment [facility] Comment on above: NOT OBSERVED Laboratory - Chemistry and C hemistry - challengeOrdered By: Liu Hackett on 01-22-2023 CK [Catalytic activity/Vol] 31 U/L 39-308 [facility] Laboratory - Hematology and Cell countsOrdered By: Jesus Burnham on 01-22-2023 Anisocytosis Ql (Bld) 1+ [facility] No Panel InformationOrdered By: Liu Hackett on 01-22-2023 Addendum Document Comment . [facility] Comment on above: Protein electrophore sis scan will follow via computer,mail, or wool tamper delivery. Centromere B Antibody <0.2 AI 0.0-0.9 [facility] Immunoglobulin E 399 IU/mL 6-495 [facility] Immunoglobulin G4 8 mg/dL 2-96 [facility] SAMPLE SEWER Antibody <0.2 AI 0.0-0.9 [facility] 31 U/L 39-308 [facility] 8 mg/dL 2-96 [facility] 399 IU/mL 6-495 [facility] <0.2 AI 0.0-0.9 [facility] No Panel InformationOrdered By: Jesus Burnham on 01-22-2023 1+ [facility] Review by pathologistOrdered By: Jesus Burnham on 01-22-2023 Pathologist review Ori (Unsp spec) [Interp] Reviewed [facility] Comment on above: Previous reported re sult: Corie sr Edited by: KEN on 01/23/23:1008Neutrophilic leukocytosis with left shift.Normocytic anemia.Clinical correlation necessary.Evaristo Dela Cruz M.D. 01/23/23 AMENDED REPORT 01/23/23 1008 PATH REV previously reported as: Corie sr Serum DNA double strand anti body assay (units/volume)Ordered By: Liuasim Hackett on 01-22-2023 DNA double strand Ab Qn (S) [IU]/mL 0-9 [facility] Comment on above: Negative <5 Equivoca l 5 - 9 Positive >9 Serum IgG subclass 1 measure ment (mass/volume)Ordered By: Liuasim Hackett on 01-22-2023 IgG subclass 1 (S) [Mass/Vol] 237 mg/dL 248-810 [facility] Serum IgG subclass 2 measure ment (mass/volume)Ordered By: Liuasim Hackett on 01-22-2023 IgG subclass 2 (S) [Mass/Vol] 115 mg/dL 130-555 [facility] Serum IgG subclass 3 measure ment (mass/volume)Ordered By: Liu Roxann on 01-22-2023 IgG subclass 3 (S) [Mass/Vol] 20 mg/dL 15-102 [facility] Serum Kelsey-1 antibody assay (u nits/volume)Ordered By: Liuasim Hackett on 01-22-2023 Kelsey-1 extractable nuclear Ab Qn (S) <0.2 AI 0.0-0.9 [facility] Serum Scl-70 extractable nuc lear antibody assay (units/volume)Ordered By: Liu Roxann on 01-22-2023 SCL-70 extractable nuclear Ab Qn (S) <0.2 AI 0.0-0.9 [facility] Serum Martinez extractable nucl ear antibody detectionOrdered By: Liu Hackett on 01-22-2023 Martinez extractable nuclear Ab Ql (S) <0.2 AI 0.0-0.9 [facility] Serum [id number] measu rement by electrophoresisOrdered By: Liu Hackett on 01-22-2023 Alpha 1 globulin Elph [Mass/Vol] 0.2 g/dL 0.0-0.4 [facility] Alpha 1 globulin Elph [Mass/Vol] 0.6 g/dL 0.4-1.0 [facility] Serum classic neutrophil cyt oplasmic antibody assay (units/volume)Ordered By: Liu Hackett on 01-22-2023 Neutrophil cytoplasmic Ab.classic Qn (S) <1:20 titer Neg:<1:20 [facility] Serum globulin measurement ( mass/volume)Ordered By: Liu Hackett on 01-22-2023 Globulin (S) [Mass/Vol] 1.9 g/dL 2.2-3.9 [facility] Serum or plasma IgA measurem ent (mass/volume)Ordered By: Liu Hackett on 01-22-2023 IgA [Mass/Vol] 194 mg/dL 61-437 [facility] Serum or plasma IgG measurem ent (mass/volume)Ordered By: Liu Hackett on 01-22-2023 IgG [Mass/Vol] 417 mg/dL 603-1613 [facility] IgG [Mass/Vol] Not Reportable [facility] Serum or plasma IgM measurem ent (mass/volume)Ordered By: Liu Hackett on 01-22-2023 IgM [Mass/Vol] 15 mg/dL 15-143 [facility] Comment on above: Result confirmed on concentration. Serum or plasma beta globuli n measurement by electrophoresis (mass/volume)Ordered By: Liu Hackett on 01-22-2023 Beta globulin Elph [Mass/Vol] 0.7 g/dL 0.7-1.3 [facility] Serum or plasma gamma globul in measurement by electrophoresis (mass/volume)Ordered By: Liu Hackett on 01-22-2023 Gamma globulin Elph [Mass/Vol] 0.3 g/dL 0.4-1.8 [facility] Serum or plasma immunoelectr ophoresis interpretation (nominal result)Ordered By: Liu Hackett on 01-22-2023 Interpretation IEP [Interp] Comment . [facility] Comment on above: No monoclonality det ected. Serum perinuclear neutrophil cytoplasmic antibody titer by immunofluorescenceOrdered By: Liu Hackett on 01-22-2023 Neutrophil cytoplasmic Ab.perinuclear IF (S) [Titer] <1:20 titer Neg:<1:20 [facility] Comment on above: The presence of posi tive fluorescence exhibiting P-ANCA orC-ANCA patterns alone is not specific for the diagnosis ofWegener's Granulomatosis (WG) or microscopic polyangiitis.Decisions about treatment should not be based solely onANCA IFA results. The [employer] Consensusrecommends follow up testing of positive sera with both WV-3 and MPO-ANCA enzyme immunoassays. As many as 5% serumsamples are positive only by EIA. Ref. AM J Clin Mhhcfs6757;111:507-513. Thin prep Papanicolaou smear with manual screeningOrdered By: Liu Hackett on 01-22-2023 Thin prep Papanicolaou smear with manual screening 1.4 0.7-1.7 [facility] Total protein bloodOrdered B y: Liu Hackett on 01-22-2023 Protein [Mass/Vol] 4.4 g/dL 6.0-8.5 [facility] Absolute lymphocyte countOrd ered By: Dandy Sauer on 01-21-2023 Lymphocytes Auto (Unsp spec) [#/Vol] 1.69 10*3/uL 0.83-4.51 [facility] Basophil percentageOrdered B y: Dandy Sauer on 01-21-2023 Basophil percentage 0-5 SEEN /hpf 0-5 [facility] Basophil percentage 5.4 g/dL 6.4-8.2 [facility] Basophil percentage 0.30 mg/dL 0.20-1.00 [facility] Basophils/100 WBC (Bld) 0.3 % 0-1 [facility] Bilirubin [Mass/Vol] 0.30 mg/dL 0.20-1.00 [facility] Comment on above: For patients on eltr ombopag therapy, use of Dimension [place] TBIL is not recommended. Chloride [Moles/Vol] 109 mmol/L 98-107 [facility] Eosinophils/100 WBC (Bld) 0.0 % 0-5 [facility] Glucose [Mass/Vol] 248 mg/dL 74-106 [facility] Comment on above: Glucose result great er than or equal to 200 mg/dLsuggests DIABETES MELLITUS per A.D.A. criteria. Lactate [Moles/Vol] 7.9 mmol/L 0.4-2.0 [facility] Comment on above: Critical Result(s) C alled at: 09:48:37 01/21/2023 by: Aruna Tadeo. Results read back by same. Neutrophils (Bld) [#/Vol] 19.7 10*3/uL 2.0-7.7 [facility] Neutrophils/100 WBC (Bld) 87.8 % 47-70 [facility] Potassium [Moles/Vol] 5.2 mmol/L 3.5-5.1 [facility] Protein [Mass/Vol] 5.4 g/dL 6.4-8.2 [facility] Sodium [Moles/Vol] 138 mmol/L 136-145 [facility] WBC (Bld) [#/Vol] 22.4 10*3/uL 4.4-11.0 [facility] Bilirubin Test strip Ql (U)O rdered By: Dandy Sauer on 01-21-2023 Bilirubin Ql (U) 1 mg/dL Negative [facility] Comment on above: COLOR OF URINE MAY A FFECT DIPSTICK RESULTS. Blood erythrocytes count (nu mber/volume)Ordered By: Dandy Sauer on 01-21-2023 RBC (Bld) [#/Vol] 3.96 10*6/uL 4.6-6.2 [facility] Blood hemoglobin measurement (mass/volume)Ordered By: Dandy Sauer on 01-21-2023 Hemoglobin (Bld) [Mass/Vol] 10.7 g/dL 13.0-16. 5 [facility] Blood lymphocytes/100 leukoc ytesOrdered By: Dandy Sauer on 01-21-2023 Lymphocytes/100 WBC (Bld) 7.5 % 19-41 [facility] Blood monocytes/100 leukocyt esOrdered By: Dandy Sauer on 01-21-2023 Monocytes/100 WBC (Bld) 2.4 % 0-10 [facility] Blood platelet mean volumeOr dered By: Dandy Sauer on 01-21-2023 Platelet mean volume (Bld) [Entitic vol] 10.7 fL 6.2-12.0 [facility] Determination of erythrocyte mean corpuscular volume (MCV)Ordered By: Dandy Sauer on 01-21-2023 MCV (RBC) [Entitic vol] 86.6 fL 80-94 [facility] Hematocrit Auto (Bld) [Volum e fraction]Ordered By: Dandy Sauer on 01-21-2023 Hematocrit (Bld) [Volume fraction] 34.3 % 40-54 [facility] INR in Blood by Coagulation assayOrdered By: Dandy Sauer on 01-21-2023 INR Coag (Bld) [Relative time] 4.2 {INR} [facility] Comment on above: CRITICAL VALUE VERIF IED. CALLED TO EVANS MARI (ER)01/21/23 1011 Zachary Gabriel.RESULTS READ BACK BY SAME. Ketones Test strip Ql (U)Ord ered By: Dandy Sauer on 01-21-2023 Ketones Ql (U) 15 mg/dl Negative [facility] Laboratory - Chemistry and C hemistry - challengeOrdered By: Dandy Sauer on 01-21-2023 ALP [Catalytic activity/Vol] 76 U/L 45-117 [facility] ALT [Catalytic activity/Vol] 25 U/L 16-61 [facility] CO2 [Moles/Vol] 12.0 mmol/L 21.0-32.0 [facility] Globulin (S) [Mass/Vol] 2.7 g/dL 2.2-4.2 [facility] Urea nitrogen/Creatinine [Mass ratio] 62.8 mg/mg 10-20 [facility] Laboratory - CoagulationOrde red By: Dandy Sauer on 01-21-2023 PT Coag (PPP) [Time] 41.4 s 11.7-14.9 [facility] Laboratory - Hematology and Cell countsOrdered By: Dandy Sauer on 01-21-2023 Erythrocyte distribution width (RBC) [Entitic vol] 46.6 fL 35.1-43.9 [facility] Erythrocyte distribution width (RBC) [Ratio] 14.7 % 11.6-14.6 [facility] Immature granulocytes/100 WBC (Bld) 2.000 % 0.0-0.9 [facility] Comment on above: IG% - Immature Granu locytes (promyelocytes, myelocytes and metamyelocytes) > 1% indicates that a LEFT SHIFT is Present. MCH (RBC) [Entitic mass] 27.0 pg 27.0-32.0 [facility] Nucleated RBC/100 WBC (Bld) [Ratio] 0 % 0-5 [facility] Lower GI hemoglobin IA Ql (S tl)Ordered By: Dandy Sauer on 01-21-2023 Stool gastrointestinal hemoglobin detection by immunologic method Positive [facility] Stool Occult Blood (KLAUS) Positive [facility] Stool gastrointestinal hemoglobin detection by immunologic method Positive [facility] MCHC Auto (RBC) [Mass/Vol]Or dered By: Dandy Sauer on 01-21-2023 MCHC (RBC) [Mass/Vol] 31.2 g/dL 32-36 [facility] Mucus LM Ql (Urine sed)Order ed By: Dandy Sauer on 01-21-2023 Mucus Ql (Urine sed) 0 SEEN /hpf [facility] Nitrite Test strip Ql (U)Ord ered By: Dandy Sauer on 01-21-2023 Nitrite Ql (U) Negative Negative [facility] No Panel InformationOrdered By: Dandy Sauer on 01-21-2023 Estimated Creatinine Clearance Calc 36.25 ml/min [facility] Estimated GFR (MDRD) Amer 42 mL/min >60 [facility] Comment on above: GFR Calc Estimated GFR (MDRD) Non-Af Amer 35 mL/min >60 [facility] Comment on above: Non- GFR Calc Troponin I High Sensitivity 23 pg/mL 3.0-78.0 [facility] Comment on above: Please Note: New Thania t Units and Gender Specific Reference Ranges. For more information see Policy Stat Procedure [place] High Sensitivity Troponin (TNIH) and attachments. 23 pg/mL 3.0-78.0 [facility] 76 U/L 45-117 [facility] 25 U/L 16-61 [facility] Platelets bldOrdered By: Renetta Sauer on 01-21-2023 Platelets (Bld) [#/Vol] 389 10*3/uL 150-450 [facility] Protein Test strip Ql (U)Ord ered By: Dandy Sauer on 01-21-2023 Protein Ql (U) 15 mg/dl Negative [facility] Serum or plasma albumin antoine urement (mass/volume)Ordered By: Dandy Sauer on 01-21-2023 Albumin [Mass/Vol] 2.7 g/dL 3.2-5.0 [facility] Serum or plasma albumin/glob ulin mass ratioOrdered By: Dandy Sauer on 01-21-2023 Albumin/Globulin [Mass ratio] 1.0 {ratio} 0.9-2.4 [facility] Serum or plasma calcium antoine urement (mass/volume)Ordered By: Dandy Sauer on 01-21-2023 Calcium [Mass/Vol] 9.7 mg/dL 8.5-10.1 [facility] Serum or plasma creatinine m easurement (mass/volume)Ordered By: Dandy Sauer on 01-21-2023 Creatinine [Mass/Vol] 1.99 mg/dL 0.70-1.30 [facility] Comment on above: The validity of the calculated GFR & GFRAA in patients over 70 years has not been determined. Clinical correlation is essential. Serum or plasma urea nitroge n measurement (mass/volume)Ordered By: Dandy Sauer on 01-21-2023 Urea nitrogen [Mass/Vol] 125 mg/dL 7-18 [facility] Comment on above: Critical Result(s) C alled at: 09:53:00 01/21/2023 by: Aruna Morales to Shwetha. Results read back by same. Squamous epithelial cells de tection in urine sediment by light microscopyOrdered By: Dandy Sauer on 01-21-2023 Epithelial cells.squamous LM Ql (Urine sed) 0-5 SEEN /hpf 0-5 [facility] Thin prep Papanicolaou smear with manual screeningOrdered By: Dandy Sauer on 01-21-2023 Thin prep Papanicolaou smear with manual screening 9 U/L 15-37 [facility] Thin prep Papanicolaou smear with manual screening 17 5-15 [facility] Urine blood detectionOrdered By: Dandy Sauer on 01-21-2023 RBC Ql (U) Negative Negative [facility] RBC Ql (U) 0 SEEN /hpf 0-5 [facility] Urine clarityOrdered By: Renetta Sauer on 01-21-2023 Clarity (U) Clear Clear [facility] Urine color determinationOrd ered By: Dandy Sauer on 01-21-2023 Color (U) Yellow Yellow [facility] Urine glucose detectionOrder ed By: Dandy Sauer on 01-21-2023 Glucose Ql (U) 100 mg/dl Normal [facility] Urine leukocyte esterase det ection by dipstickOrdered By: Dandy Sauer on 01-21-2023 Leukocyte esterase Test strip Ql (U) Negative Negative [facility] Urine pHOrdered By: Dandy Sauer on 01-21-2023 pH (U) 5.0 [pH] 5.0 - 8.0 [facility] Urine sediment bacteria coun t by microscopy (number/high power field)Ordered By: Dandy Sauer on 01-21-2023 Bacteria LM.HPF (Urine sed) [#/Area] 0 /[HPF] None Seen [facility] Urine specific gravity measu rementOrdered By: Dandy Sauer on 01-21-2023 Specific gravity (U) [Rel density] 1.020 1.002-1.03 0 [facility] Urobilinogen Auto test strip Ql (U)Ordered By: Dandy Sauer on 01-21-2023 Urobilinogen Ql (U) Normal mg/dl Normal [facility] Glucose Glucometer (BldC) [M ass/Vol]Ordered By: Gabriel Giraldo on 01-08-2023 Glucose [Mass/Vol] 201 mg/dL 74-106 [facility] Comment on above: MANAGEMENT OF PATIEN T CARE PER NURSING PROTOCOL Absolute lymphocyte countOrd ered By: Karen Aly on 01-07-2023 Lymphocytes Auto (Unsp spec) [#/Vol] 1.83 10*3/uL 0.83-4.51 [facility] Basophil percentageOrdered B y: Karen Aly on 01-07-2023 Basophil percentage 121 mg/dL 74-106 [facility] Basophil percentage 6.0 g/dL 6.4-8.2 [facility] Basophil percentage 0.70 mg/dL 0.20-1.00 [facility] Basophil percentage 138 mmol/L 136-145 [facility] Basophil percentage 4.1 mmol/L 3.5-5.1 [facility] Basophil percentage 106 mmol/L 98-107 [facility] Basophils (Bld) [#/Vol] 9.3 10*3/uL 4.4-11.0 [facility] Basophils (Bld) [#/Vol] 6.4 10*3/uL 2.0-7.7 [facility] Basophils/100 WBC (Bld) 0.6 % 0-1 [facility] Basophils/100 WBC (Bld) 69.0 % 47-70 [facility] Basophils/100 WBC (Bld) 2.4 % 0-5 [facility] Bilirubin [Mass/Vol] 0.70 mg/dL 0.20-1.00 [facility] Comment on above: For patients on eltr ombopag therapy, use of Dimension [place] TBIL is not recommended. Chloride [Moles/Vol] 106 mmol/L 98-107 [facility] Eosinophils/100 WBC (Bld) 2.4 % 0-5 [facility] Glucose [Mass/Vol] 121 mg/dL 74-106 [facility] Comment on above: Fasting Glucose resu lt from 100 to 125 mg/dL suggests IMPAIRED HOMEOSTASIS per A.D.A. criteria. Neutrophils (Bld) [#/Vol] 6.4 10*3/uL 2.0-7.7 [facility] Neutrophils/100 WBC (Bld) 69.0 % 47-70 [facility] Potassium [Moles/Vol] 4.1 mmol/L 3.5-5.1 [facility] Protein [Mass/Vol] 6.0 g/dL 6.4-8.2 [facility] Sodium [Moles/Vol] 138 mmol/L 136-145 [facility] WBC (Bld) [#/Vol] 9.3 10*3/uL 4.4-11.0 [facility] Blood erythrocytes count (nu mber/volume)Ordered By: White on 01-07-2023 RBC (Bld) [#/Vol] 4.90 10*6/uL 4.6-6.2 [facility] Blood hemoglobin measurement (mass/volume)Ordered By: White on 01-07-2023 Hemoglobin (Bld) [Mass/Vol] 13.1 g/dL 13.0-16. 5 [facility] Blood lymphocytes/100 leukoc ytesOrdered By: White on 01-07-2023 Lymphocytes/100 WBC (Bld) 19.8 % 19-41 [facility] Blood monocytes/100 leukocyt esOrdered By: White on 01-07-2023 Monocytes/100 WBC (Bld) 7.2 % 0-10 [facility] Blood platelet mean volumeOr dered By: Karen Aly on 01-07-2023 Platelet mean volume (Bld) [Entitic vol] 9.1 fL 6.2-12.0 [facility] Determination of erythrocyte mean corpuscular volume (MCV)Ordered By: Karen Aly on 01-07-2023 MCV (RBC) [Entitic vol] 83.5 fL 80-94 [facility] Hematocrit Auto (Bld) [Volum e fraction]Ordered By: Karen Jermain on 01-07-2023 Hematocrit (Bld) [Volume fraction] 40.9 % 40-54 [facility] INR in Blood by Coagulation assayOrdered By: [facility] on 01-07-2023 INR Coag (Bld) [Relative time] 2.2 {INR} [facility] Laboratory - Chemistry and C hemistry - challengeOrdered By: [facility] on 01-07-2023 ALP [Catalytic activity/Vol] 90 U/L 45-117 [facility] ALT [Catalytic activity/Vol] 18 U/L 16-61 [facility] CO2 [Moles/Vol] 24.0 mmol/L 21.0-32.0 [facility] Globulin (S) [Mass/Vol] 3.1 g/dL 2.2-4.2 [facility] Urea nitrogen/Creatinine [Mass ratio] 23.0 mg/mg 10-20 [facility] Laboratory - CoagulationOrde red By: Karen Aly on 01-07-2023 PT Coag (PPP) [Time] 24.8 s 11.7-14.9 [facility] Laboratory - Hematology and Cell countsOrdered By: [facility] on 01-07-2023 Erythrocyte distribution width (RBC) [Entitic vol] 43.7 fL 35.1-43.9 [facility] Erythrocyte distribution width (RBC) [Ratio] 14.5 % 11.6-14.6 [facility] Immature granulocytes/100 WBC (Bld) 1.000 % 0.0-0.9 [facility] Comment on above: IG% - Immature Granu locytes (promyelocytes, myelocytes and metamyelocytes) > 1% indicates that a LEFT SHIFT is Present. MCH (RBC) [Entitic mass] 26.7 pg 27.0-32.0 [facility] Nucleated RBC/100 [facility]Bld) [[facility]] [facility] [Mass/Vol]Or dered By: Karen Aly on 01-07-2023 MCHC (RBC) [Mass/Vol] 32.0 g/dL 32-36 [facility] No Panel InformationOrdered By: Karen Aly on 01-07-2023 Estimated Creatinine Clearance Calc 63.83 ml/min [facility] Estimated GFR (MDRD) Amer 81 mL/min >60 [facility] Comment on above: GFR Calc Estimated GFR (MDRD) Non-Af Amer 67 mL/min >60 [facility] Comment on above: Non- GFR Calc 26.7 pg 27.0-32.0 [facility] 14.5 % 11.6-14.6 [facility] 43.7 fl 35.1-43.9 [facility] 1.000 % 0.0-0.9 [facility] 0 % 0-5 [facility] 24.8 SECONDS 11.7-14.9 [facility] 67 mL/min >60 [facility] 81 mL/min >60 [facility] 63.83 ml/min [facility] 23.0 RATIO 10-20 [facility] 3.1 g/dL 2.2-4.2 [facility] 90 U/L 45-117 [facility] 18 U/L 16-61 [facility] 24.0 mmol/L 21.0-32.0 [facility] Platelets bldOrdered By: Dede Aly on 01-07-2023 Platelets (Bld) [#/Vol] 216 10*3/uL 150-450 [facility] Serum or plasma albumin antoine urement (mass/volume)Ordered By: Karen Aly on 01-07-2023 Albumin [Mass/Vol] 2.9 g/dL 3.2-5.0 [facility] Serum or plasma albumin/glob ulin mass ratioOrdered By: Karen Aly on 01-07-2023 Albumin/Globulin [Mass ratio] 0.9 {ratio} 0.9-2.4 [facility] Serum or plasma calcium antoine urement (mass/volume)Ordered By: Karen Aly on 01-07-2023 Calcium [Mass/Vol] 8.8 mg/dL 8.5-10.1 [facility] Serum or plasma creatinine m easurement (mass/volume)Ordered By: Karen Aly on 01-07-2023 Creatinine [Mass/Vol] 1.13 mg/dL 0.70-1.30 [facility] Comment on above: The validity of the calculated GFR & GFRAA in patients over 70 years has not been determined. Clinical correlation is essential. Serum or plasma urea nitroge n measurement (mass/volume)Ordered By: Karen Aly on 01-07-2023 Urea nitrogen [Mass/Vol] 26 mg/dL 7-18 [facility] Thin prep Papanicolaou smear with manual screeningOrdered By: Karen Aly on 01-07-2023 Thin prep Papanicolaou smear with manual screening 13 U/L 15-37 [facility] Thin prep Papanicolaou smear with manual screening 8 5-15 [facility] Basophil percentageOrdered B y: Karen Aly on 01-05-2023 Basophil percentage 87 mg/dL <200 [facility] Basophil percentage 116 mg/dL <199 [facility] Cholesterol [Mass/Vol] 87 mg/dL <200 [facility] Comment on above: <200 mg/dL Desirable [...] Thyroid Stimulating Hormone (TSH) 1.13 uIU/mL 0.358-3.74 [facility] 1.13 uIU/mL 0.358-3.74 [facility] Serum or plasma cholesterol in HDL measurement (mass/volume)Ordered By: Karen Ayl on 01-05-2023 Cholesterol in HDL [Mass/Vol] 37 mg/dL >40 [facility] Comment on above: The drugs N-Acetylcy steine and Metamizole may falsely depress this assay. Reference Range HDL <40 mg/dL Low HDL Cholesterol HDL >or= 60 mg/dL High HDL Cholesterol Serum or plasma cholesterol in VLDL measurement (mass/volume)Ordered By: Karen Aly on 01-05-2023 Cholesterol in VLDL [Mass/Vol] 23 mg/dL 5-40 [facility] Serum or plasma low density lipoprotein (LDL) cholesterol measurement (mass/volume)Ordered By: Karen Aly on 01-05-2023 Cholesterol in LDL [Mass/Vol] 27 mg/dL 0-130 [facility] Whole blood hemoglobin A1c/t otal hemoglobin ratio (mass fraction)Ordered By: Karen Aly on 01-05-2023 HbA1c (Bld) [Mass fraction] 5.8 % 3.8-5.6 [facility] Comment on above: Normal < 5.7 % Predi abetic 5.7 - 6.4 % Diabetic >or= 6.5 % Please note range changes. Absolute lymphocyte countOrd ered By: Dr. Roberts on 01-04-2023 Lymphocytes Auto (Unsp spec) [#/Vol] 1.31 10*3/uL 0.83-4.51 [facility] Assessment of wrist artery p atency prior to arterial punctureOrdered By: Dr. Aly on 01-04-2023 Arterial patency Wrist artery --pre arterial puncture N/A [facility] Bacteria identified Cx Nom ( U)Ordered By: Maggy Roberts on 01-04-2023 Culture, urine Positive [facility] Base excessOrdered By: Dr. Freddy pettit on 01-04-2023 Base excess Calc (BldV) [Moles/Vol] 0 mmol/L -2-2 [facility] Basophil percentageOrdered B y: Dr. Aly on 01-04-2023 Basophil percentage 23.7 mmol/L 22- [facility] Basophils/100 WBC (Bld) 96 % 95-99 [facility] Ammonia (P) [Moles/Vol] 17.0 umol/L - [facility] Basophil percentageOrdered B y: Karen Aly on 01-04-2023 Basophil percentage 17.0 umol/L - [facility] Basophil percentageOrdered B y: Dr. Roberts on 01-04-2023 Basophil percentage 0 SEEN /hpf 0-5 [facility] Basophils/100 WBC (Bld) 0.4 % 0-1 [facility] Bilirubin [Mass/Vol] 0.70 mg/dL 0.20-1.00 [facility] Comment on above: For patients on eltr ombopag therapy, use of Dimension [place] TBIL is not recommended. Chloride [Moles/Vol] 105 mmol/L 98-107 [facility] Eosinophils/100 WBC (Bld) 1.7 % 0-5 [facility] Glucose [Mass/Vol] 133 mg/dL 74-106 [facility] Comment on above: Fasting Glucose resu lt greater than or equal to 126 mg/dL suggests DIABETES MELLITUS per A.D.A. criteria. Neutrophils (Bld) [#/Vol] 8.0 10*3/uL 2.0-7.7 [facility] Neutrophils/100 WBC (Bld) 78.3 % 47-70 [facility] Potassium [Moles/Vol] 4.2 mmol/L 3.5-5.1 [facility] Protein [Mass/Vol] 6.3 g/dL 6.4-8.2 [facility] Sodium [Moles/Vol] 139 mmol/L 136-145 [facility] WBC (Bld) [#/Vol] 10.2 10*3/uL 4.4-11.0 [facility] Bilirubin Test strip Ql (U)O rdered By: Dr. Roberts on 01-04-2023 Bilirubin Ql (U) Negative Negative [facility] Blood erythrocytes count (nu mber/volume)Ordered By: Dr. Roberts on 01-04-2023 RBC (Bld) [#/Vol] 5.09 10*6/uL 4.6-6.2 [facility] Blood hemoglobin measurement (mass/volume)Ordered By: Dr. Roberts on 01-04-2023 Hemoglobin (Bld) [Mass/Vol] 13.5 g/dL 13.0-16. 5 [facility] Blood lymphocytes/100 leukoc ytesOrdered By: Dr. Roberts on 01-04-2023 Lymphocytes/100 WBC (Bld) 12.8 % 19-41 [facility] Blood monocytes/100 leukocyt esOrdered By: Dr. Roberts on 01-04-2023 Monocytes/100 WBC (Bld) 5.9 % 0-10 [facility] Blood platelet mean volumeOr dered By: Dr. Roberts on 01-04-2023 Platelet mean volume (Bld) [Entitic vol] 8.7 fL 6.2-12.0 [facility] CO2 (BldA) [Partial pressure ]Ordered By: Dr. Aly on 01-04-2023 CO2 (Bld) [Partial pressure] 33.9 mm[Hg] 35-45 [facility] Culture, urineOrdered By: Eddie Roberts on 01-04-2023 Bacteria identified Cx Nom (U) Positive [facility] Determination of erythrocyte mean corpuscular volume (MCV)Ordered By: Dr. Roberts on 01-04-2023 MCV (RBC) [Entitic vol] 82.1 fL 80-94 [facility] Direct bilirubinOrdered By: Dr. Roberts on 01-04-2023 Bilirubin.direct [Mass/Vol] 0.20 mg/dL 0.00-0.3 0 [facility] Hematocrit Auto (Bld) [Volum e fraction]Ordered By: Dr. Roberts on 01-04-2023 Hematocrit (Bld) [Volume fraction] 41.8 % 40-54 [facility] INR in Blood by Coagulation assayOrdered By: Dr. Rboerts on 01-04-2023 INR Coag (Bld) [Relative time] 3.1 {INR} [facility] Ketones Test strip Ql (U)Ord ered By: Dr. Roberts on 01-04-2023 Ketones Ql (U) Negative Negative [facility] Laboratory - Chemistry and C hemistry - challengeOrdered By: Karen Aly on 01-04-2023 Cobalamin (Vitamin B12) [Mass/Vol] 260 pg/mL 211-911 [facility] Laboratory - Chemistry and C hemistry - challengeOrdered By: Dr. Aly on 01-04-2023 Magnesium [Mass/Vol] 1.8 mg/dL 1.6-2.6 [facility] Laboratory - Chemistry and C hemistry - challengeOrdered By: Dr. Roberts on 01-04-2023 ALP [Catalytic activity/Vol] 102 U/L 45-117 [facility] ALT [Catalytic activity/Vol] 18 U/L 16-61 [facility] CO2 [Moles/Vol] 25.0 mmol/L 21.0-32.0 [facility] Globulin (S) [Mass/Vol] 3.2 g/dL 2.2-4.2 [facility] Urea nitrogen/Creatinine [Mass ratio] 18.7 mg/mg 10-20 [facility] Laboratory - CoagulationOrde red By: Dr. Roberts on 01-04-2023 PT Coag (PPP) [Time] 32.6 s 11.7-14.9 [facility] Laboratory - Hematology and Cell countsOrdered By: Dr. Roberts on 01-04-2023 Erythrocyte distribution width (RBC) [Entitic vol] 42.3 fL 35.1-43.9 [facility] Erythrocyte distribution width (RBC) [Ratio] 14.2 % 11.6-14.6 [facility] Immature granulocytes/100 WBC (Bld) 0.900 % 0.0-0.9 [facility] Comment on above: IG% - Immature Granu locytes (promyelocytes, myelocytes and metamyelocytes) > 1% indicates that a LEFT SHIFT is Present. MCH (RBC) [Entitic mass] 26.5 pg 27.0-32.0 [facility] Nucleated RBC/100 WBC (Bld) [Ratio] 0 % 0-5 [facility] Laboratory - Microbiology an d Antimicrobial susceptibilityOrdered By: Maggy Roberts on 01-04-2023 Bacteria identified Cx Nom (Bld) No growth in 5 days. [facility] MCHC Auto (RBC) [Mass/Vol]Or dered By: Dr. Roberts on 01-04-2023 MCHC (RBC) [Mass/Vol] 32.3 g/dL 32-36 [facility] Mucus LM Ql (Urine sed)Order ed By: Dr. Roberts on 01-04-2023 Mucus Ql (Urine sed) 0 SEEN /hpf [facility] Nitrite Test strip Ql (U)Ord ered By: Dr. Roberts on 01-04-2023 Nitrite Ql (U) Negative Negative [facility] No Panel InformationOrdered By: Dr. Aly on 01-04-2023 Blood Gas Oxygen Percent 21 [facility] Blood Gas Sample Site R Br[facility] Blood Gas Specimen Type ART [facility] Blood Gas Total CO2 25 mmol/L [facility] Oxygen Delivery Device Room Air [facility] No Panel InformationOrdered By: Karen Aly on 01-04-2023 ART [facility] R Brach [facility] Room Air [facility] 21 [facility] 25 mmol/L [facility] 1.8 mg/dL 1.6-2.6 [facility] 260 pg/mL 211-911 [facility] No Panel InformationOrdered By: Maggy Roberts on 01-04-2023 No growth in 5 days. [facility] 7 pg/mL 3.0-78.0 [facility] No Panel InformationOrdered By: Dr. Roberts on 01-04-2023 Estimated Creatinine Clearance Calc 58.64 ml/min [facility] Estimated GFR (MDRD) Amer 74 mL/min >60 [facility] Comment on above: GFR Calc Estimated GFR (MDRD) Non-Af Amer 61 mL/min >60 [facility] Comment on above: Non- GFR Calc Troponin I High Sensitivity 7 pg/mL 3.0-78.0 [facility] Comment on above: Please Note: New Thania t Units and Gender Specific Reference Ranges. For more information see Policy Stat Procedure [place] High Sensitivity Troponin (TNIH) and attachments. Oxygen (BldA) [Partial press ure]Ordered By: Dr. Aly on 01-04-2023 Oxygen (Bld) [Partial pressure] 78 mmHG 75-100 [facility] Platelets bldOrdered By: Dr. Roberts on 01-04-2023 Platelets (Bld) [#/Vol] 228 10*3/uL 150-450 [facility] Protein Test strip Ql (U)Ord ered By: Dr. Roberts on 01-04-2023 Protein Ql (U) 15 mg/dl Negative [facility] Serum Treponema species anti body detectionOrdered By: Karen Aly on 01-04-2023 Treponema sp Ab Ql (S) Non-Reactive [facility] Serum or plasma albumin antoine urement (mass/volume)Ordered By: Dr. Roberts on 01-04-2023 Albumin [Mass/Vol] 3.1 g/dL 3.2-5.0 [facility] Serum or plasma calcium antoine urement (mass/volume)Ordered By: Dr. Roberts on 01-04-2023 Calcium [Mass/Vol] 8.6 mg/dL 8.5-10.1 [facility] Serum or plasma creatinine m easurement (mass/volume)Ordered By: Dr. Roberts on 01-04-2023 Creatinine [Mass/Vol] 1.23 mg/dL 0.70-1.30 [facility] Comment on above: The validity of the calculated GFR & GFRAA in patients over 70 years has not been determined. Clinical correlation is essential. Serum or plasma folate measu rement (mass/volume)Ordered By: Karen Aly on 01-04-2023 Folate [Mass/Vol] 4.40 ng/mL 3.1-55.4 [facility] Serum or plasma urea nitroge n measurement (mass/volume)Ordered By: Dr. Roberts on 01-04-2023 Urea nitrogen [Mass/Vol] 23 mg/dL 7-18 [facility] Serum procalcitonin measurem entOrdered By: Karen Aly on 01-04-2023 Procalcitonin [Mass/Vol] ng/mL 0.00-0.09 [facility] Comment on above: A procalcitonin (PCT ) [...] Ql (Urine sed) 0-5 SEEN /hpf 0-5 [facility] Thin prep Papanicolaou smear with manual screeningOrdered By: Dr. Roberts on 01-04-2023 Thin prep Papanicolaou smear with manual screening 13 U/L 15-37 [facility] Thin prep Papanicolaou smear with manual screening 9 5-15 [facility] Urine blood detectionOrdered By: Dr. Roberts on 01-04-2023 RBC Ql (U) 10 /ul Negative [facility] RBC Ql (U) 0-5 SEEN /hpf 0-5 [facility] Urine clarityOrdered By: Dr. Roberts on 01-04-2023 Clarity (U) Sl. Cloudy Clear [facility] Urine color determinationOrd ered By: Dr. Roberts on 01-04-2023 Color (U) Yellow Yellow [facility] Urine glucose detectionOrder ed By: Dr. Roberts on 01-04-2023 Glucose Ql (U) 100 mg/dl Normal [facility] Urine leukocyte esterase det ection by dipstickOrdered By: Dr. Roberts on 01-04-2023 Leukocyte esterase Test strip Ql (U) Negative Negative [facility] Urine pHOrdered By: Dr. Yaya gallo on 01-04-2023 pH (U) 6.0 [pH] 5.0 - 8.0 [facility] Urine sediment bacteria coun t by microscopy (number/high power field)Ordered By: Dr. Roberts on 01-04-2023 Bacteria LM.HPF (Urine sed) [#/Area] 0 /[HPF] None Seen [facility] Urine specific gravity measu rementOrdered By: Dr. Roberts on 01-04-2023 Specific gravity (U) [Rel density] 1.020 1.002-1.03 0 [facility] Urobilinogen Auto test strip Ql (U)Ordered By: Dr. Roberts on 01-04-2023 Urobilinogen Ql (U) 4 mg/dl Normal [facility] pH measurementOrdered By: Dr Jose Aly on 01-04-2023 pH (Unsp spec) 7.45 [pH] 7.35-7.45 [facility] Absolute lymphocyte counton 07-11-2022 Lymphocytes Auto (Unsp spec) [#/Vol] 1.98 10*3/uL 0.83-4.51 [facility] Work Phone: Basophil percentageon 2021 Basophils/100 WBC (Bld) 0.6 % 0-1 [facility] Work Phone: Bilirubin [Mass/Vol] 0.90 mg/dL 0.20-1.00 [facility] Work Phone: Comment on above: For patients on eltr ombopag therapy, use of Dimension [place] TBIL is not recommended. Chloride [Moles/Vol] 105 mmol/L 98-107 [facility] Work Phone: Cholesterol [Mass/Vol] 102 mg/dL <200 [facility] Work Phone: Comment on above: <200 mg/dL Desirable 200-240 mg/dL Borderline >240 mg/dL High Risk Eosinophils/100 WBC (Bld) 4.1 % 0-5 [facility] Work Phone: Glucose [Mass/Vol] 103 mg/dL 74-106 [facility] Work Phone: Comment on above: Fasting Glucose resu lt from 100 to 125 mg/dL suggests IMPAIRED HOMEOSTASIS per A.D.A. criteria. Neutrophils (Bld) [#/Vol] 5.2 10*3/uL 2.0-7.7 [facility] Work Phone: Neutrophils/100 WBC (Bld) 63.5 % 47-70 [facility] Work Phone: Potassium [Moles/Vol] 3.5 mmol/L 3.5-5.1 [facility] Work Phone: Protein [Mass/Vol] 5.9 g/dL 6.4-8.2 [facility] Work Phone: Sodium [Moles/Vol] 138 mmol/L 136-145 [facility] Work Phone: Triglyceride [Mass/Vol] 124 mg/dL <199 [facility] Work Phone: Comment on above: The drugs N-Acetylcy steine and Metamizole may falsely depress this assay.Serum Triglycerides Reference Interval Normal <150 mg/dL Borderline high 150 - 199 mg/dL High 200 - 499 mg/dL Very High > or = 500 mg/dL WBC (Bld) [#/Vol] 8.2 10*3/uL 4.4-11.0 [facility] Work Phone: Blood erythrocytes count (nu mber/volume)on 07-11-2022 RBC (Bld) [#/Vol] 4.75 10*6/uL 4.6-6.2 [facility] Work Phone: Blood hemoglobin measurement (mass/volume)on 07-11-2022 Hemoglobin (Bld) [Mass/Vol] 12.7 g/dL 13.0-16. 5 [facility] Work Phone: Blood lymphocytes/100 leukoc yteson 07-11-2022 Lymphocytes/100 WBC (Bld) 24.1 % 19-41 [facility] Work Phone: Blood monocytes/100 leukocyt eson 07-11-2022 Monocytes/100 WBC (Bld) 6.8 % 0-10 [facility] Work Phone: Blood platelet mean volumeon 07-11-2022 Platelet mean volume (Bld) [Entitic vol] 9.2 fL 6.2-12.0 [facility] Work Phone: Determination of erythrocyte mean corpuscular volume (MCV)on 07-11-2022 MCV (RBC) [Entitic vol] 82.7 fL 80-94 [facility] Work Phone: Glucose Glucometer (BldC) [M ass/Vol]on 07-11-2022 Glucose [Mass/Vol] 149 mg/dL 74-106 [facility] Work Phone: Comment on above: MANAGEMENT OF PATIEN T CARE PER NURSING PROTOCOL Hematocrit Auto (Bld) [Volum e fraction]on 07-11-2022 Hematocrit (Bld) [Volume fraction] 39.3 % 40-54 [facility] Work Phone: INR in Blood by Coagulation assayon 07-11-2022 INR Coag (Bld) [Relative time] 2.1 {INR} [facility] Work Phone: [phone] Laboratory - Chemistry and C hemistry - challengeon 07-11-2022 ALP [Catalytic activity/Vol] 106 U/L 45-117 [facility] Work Phone: ALT [Catalytic activity/Vol] 22 U/L 16-61 [facility] Work Phone: CO2 [Moles/Vol] 25.0 mmol/L 21.0-32.0 [facility] Work Phone: Globulin (S) [Mass/Vol] 2.9 g/dL 2.2-4.2 [facility] Work Phone: Magnesium [Mass/Vol] 1.9 mg/dL 1.6-2.6 [facility] Work Phone: Urea nitrogen/Creatinine [Mass ratio] 17.7 mg/mg 10-20 [facility] Work Phone: Laboratory - Coagulationon 09-11-2021 PT Coag (PPP) [Time] 23.6 s 11.7-14.9 [facility] Work Phone: Laboratory - Hematology and Cell countson 07-11-2022 Erythrocyte distribution width (RBC) [Entitic vol] 44.0 fL 35.1-43.9 [facility] Work Phone: Erythrocyte distribution width (RBC) [Ratio] 14.6 % 11.6-14.6 [facility] Work Phone: Immature granulocytes/100 WBC (Bld) 0.900 % 0.0-0.9 [facility] Work Phone: Comment on above: IG% - Immature Granu locytes (promyelocytes, myelocytes and metamyelocytes) > 1% indicates that a LEFT SHIFT is Present. MCH (RBC) [Entitic mass] 26.7 pg 27.0-32.0 [facility] Work Phone: Nucleated RBC/100 WBC (Bld) [Ratio] 0 % 0-5 [facility] Work Phone: MCHC Auto (RBC) [Mass/Vol]on 07-11-2022 MCHC (RBC) [Mass/Vol] 32.3 g/dL 32-36 [facility] Work Phone: No Panel Informationon 07-11 Estimated Creatinine Clearance Calc 64.82 ml/min [facility] Work Phone: Estimated GFR (MDRD) Amer 81 mL/min >60 [facility] Work Phone: Comment on above: GFR Calc Estimated GFR (MDRD) Non-Af Amer 67 mL/min >60 [facility] Work Phone: Comment on above: Non- GFR Calc Platelets bldon 07-11-2022 Platelets (Bld) [#/Vol] 200 10*3/uL 150-450 [facility] Work Phone: Serum or plasma albumin antoine urement (mass/volume)on 07-11-2022 Albumin [Mass/Vol] 3.0 g/dL 3.2-5.0 [facility] Work Phone: Serum or plasma albumin/glob ulin mass ratioon 07-11-2022 Albumin/Globulin [Mass ratio] 1.0 {ratio} 0.9-2.4 [facility] Work Phone: Serum or plasma calcium antoine urement (mass/volume)on 07-11-2022 Calcium [Mass/Vol] 8.6 mg/dL 8.5-10.1 [facility] Work Phone: Serum or plasma cholesterol in HDL measurement (mass/volume)on 07-11-2022 Cholesterol in HDL [Mass/Vol] 36 mg/dL >40 [facility] Work Phone: Comment on above: The drugs N-Acetylcy steine and Metamizole may falsely depress this assay. Reference Range HDL <40 mg/dL Low HDL Cholesterol HDL >or= 60 mg/dL High HDL Cholesterol Serum or plasma cholesterol in VLDL measurement (mass/volume)on 07-11-2022 Cholesterol in VLDL [Mass/Vol] 25 mg/dL 5-40 [facility] Work Phone: Serum or plasma creatinine m easurement (mass/volume)on 07-11-2022 Creatinine [Mass/Vol] 1.13 mg/dL 0.70-1.30 [facility] Work Phone: Comment on above: The validity of the calculated GFR & GFRAA in patients over 70 years has not been determined. Clinical correlation is essential. Serum or plasma low density lipoprotein (LDL) cholesterol measurement (mass/volume)on 07-11-2022 Cholesterol in LDL [Mass/Vol] 41 mg/dL 0-130 [facility] Work Phone: Serum or plasma urea nitroge n measurement (mass/volume)on 07-11-2022 Urea nitrogen [Mass/Vol] 20 mg/dL 7-18 [facility] Work Phone: Thin prep Papanicolaou smear with manual screeningon 07-11-2022 Thin prep Papanicolaou smear with manual screening 23 U/L 15-37 [facility] Work Phone: Thin prep Papanicolaou smear with manual screening 8 5-15 [facility] Work Phone: No Panel Informationon 07-10 Troponin I High Sensitivity 103 pg/mL 3.0-78.0 [facility] Work Phone: Comment on above: Please Note: New Thania t Units and Gender Specific Reference Ranges. For more information see Policy Stat Procedure [place] High Sensitivity Troponin (TNIH) and attachments. Thyroid Stimulating Hormone (TSH) 1.03 uIU/mL 0.358-3.74 [facility] Work Phone: Basophil percentageon 2021 Basophil percentage 0-5 SEEN /hpf 0-5 [facility] Work Phone: Bilirubin Test strip Ql (U)o n 07-09-2022 Bilirubin Ql (U) Negative Negative [facility] Work Phone: Hyaline casts LM.LPF (Urine sed) [#/Area]on 07-09-2022 Hyaline casts (Urine sed) [#/Area] 0 /[LPF] 0-5 [facility] Work Phone: Ketones Test strip Ql (U)on 07-09-2022 Ketones Ql (U) 5 mg/dl Negative [facility] Work Phone: Mucus LM Ql (Urine sed)on Mucus Ql (Urine sed) 1+ /hpf [facility] Work Phone: Nitrite Test strip Ql (U)on 07-09-2022 Nitrite Ql (U) Negative Negative [facility] Work Phone: Protein Test strip Ql (U)on 07-09-2022 Protein Ql (U) 30 mg/dl Negative [facility] Work Phone: Squamous epithelial cells de tection in urine sediment by light microscopyon 07-09-2022 Epithelial cells.squamous LM Ql (Urine sed) 0 SEEN /hpf 0-5 [facility] Work Phone: Urine blood detectionon 06-15 RBC Ql (U) 25 /ul Negative [facility] Work Phone: RBC Ql (U) 0-5 SEEN /hpf 0-5 [facility] Work Phone: Urine clarityon 07-09-2022 Clarity (U) Clear Clear [facility] Work Phone: Urine color determinationon 07-09-2022 Color (U) Yellow Yellow [facility] Work Phone: Urine glucose detectionon Glucose Ql (U) Normal mg/dl Normal [facility] Work Phone: Urine leukocyte esterase det ection by dipstickon 07-09-2022 Leukocyte esterase Test strip Ql (U) Negative Negative [facility] Work Phone: Urine pHon 07-09-2022 pH (U) 5.0 [pH] 5.0 - 8.0 [facility] Work Phone: Urine sediment bacteria coun t by microscopy (number/high power field)on 07-09-2022 Bacteria LM.HPF (Urine sed) [#/Area] 1 /[HPF] None Seen [facility] Work Phone: Urine specific gravity measu rementon 07-09-2022 Specific gravity (U) [Rel density] 1.025 1.002-1.03 0 [facility] Work Phone: Urobilinogen Auto test strip Ql (U)on 07-09-2022 Urobilinogen Ql (U) 1 mg/dl Normal [facility] Work Phone: INR in Blood by Coagulation assayon 03-07-2022 INR Coag (Bld) [Relative time] 2.9 {INR} [facility] Laboratory - Coagulationon 0 03-07-2022 PT Coag (PPP) [Time] 30.2 s 11.7-14.9 [facility] Work Phone: Absolute lymphocyte counton 03-02-2022 Lymphocytes Auto (Unsp spec) [#/Vol] 1.26 10*3/uL 0.83-4.51 [facility] Work Phone: Basophil percentageon 2021 Basophil percentage 0 SEEN /hpf 0-5 [facility] Work Phone: Basophils/100 WBC (Bld) 0.4 % 0-1 [facility] Work Phone: Chloride [Moles/Vol] 105 mmol/L 98-107 [facility] Work Phone: Eosinophils/100 WBC (Bld) 2.5 % 0-5 [facility] Work Phone: Glucose [Mass/Vol] 158 mg/dL 74-106 [facility] Work Phone: Comment on above: Fasting Glucose resu lt greater than or equal to 126 mg/dL suggests DIABETES MELLITUS per A.D.A. criteria. Neutrophils (Bld) [#/Vol] 8.8 10*3/uL 2.0-7.7 [facility] Work Phone: Neutrophils/100 WBC (Bld) 78.8 % 47-70 [facility] Work Phone: Potassium [Moles/Vol] 4.2 mmol/L 3.5-5.1 [facility] Work Phone: Sodium [Moles/Vol] 138 mmol/L 136-145 [facility] Work Phone: WBC (Bld) [#/Vol] 11.2 10*3/uL 4.4-11.0 [facility] Work Phone: Bilirubin Test strip Ql (U)o n 03-02-2022 Bilirubin Ql (U) Negative Negative [facility] Work Phone: Blood erythrocytes count (nu mber/volume)on 03-02-2022 RBC (Bld) [#/Vol] 5.15 10*6/uL 4.6-6.2 [facility] Work Phone: Blood hemoglobin measurement (mass/volume)on 03-02-2022 Hemoglobin (Bld) [Mass/Vol] 13.8 g/dL 13.0-16. 5 [facility] Work Phone: Blood lymphocytes/100 leukoc yteson 03-02-2022 Lymphocytes/100 WBC (Bld) 11.2 % 19-41 [facility] Work Phone: Blood monocytes/100 leukocyt eson 03-02-2022 Monocytes/100 WBC (Bld) 5.7 % 0-10 [facility] Work Phone: Blood platelet mean volumeon 03-02-2022 Platelet mean volume (Bld) [Entitic vol] 9.0 fL 6.2-12.0 [facility] Work Phone: Determination of erythrocyte mean corpuscular volume (MCV)on 03-02-2022 MCV (RBC) [Entitic vol] 82.3 fL 80-94 [facility] Work Phone: Glucose Glucometer (BldC) [M ass/Vol]on 08-19-2022 Glucose [Mass/Vol] 158 mg/dL 74-106 [facility] Work Phone: Comment on above: MANAGEMENT OF PATIEN T CARE PER NURSING PROTOCOL Hematocrit Auto (Bld) [Volum e fraction]on 03-02-2022 Hematocrit (Bld) [Volume fraction] 42.4 % 40-54 [facility] Work Phone: Hyaline casts LM.LPF (Urine sed) [#/Area]on 03-02-2022 Hyaline casts (Urine sed) [#/Area] 0 /[LPF] 0-5 [facility] Work Phone: INR in Blood by Coagulation assayon 03-02-2022 INR Coag (Bld) [Relative time] 4.4 {INR} [facility] Work Phone: Comment on above: CRITICAL VALUE VERIF IED. CALLED TO [id number]/19/22 1559 Brie Ma.RESULTS READ BACK BY SAME . Ketones Test strip Ql (U)on 03-02-2022 Ketones Ql (U) 5 mg/dl Negative [facility] Work Phone: Laboratory - Chemistry and C hemistry - challengeon 03-02-2022 CO2 [Moles/Vol] 23.0 mmol/L 21.0-32.0 [facility] Work Phone: Urea nitrogen/Creatinine [Mass ratio] 16.9 mg/mg 10-20 [facility] Work Phone: Laboratory - Coagulationon 0 03-02-2022 PT Coag (PPP) [Time] 41.4 s 11.7-14.9 [facility] Work Phone: Laboratory - Hematology and Cell countson 03-02-2022 Erythrocyte distribution width (RBC) [Entitic vol] 41.4 fL 35.1-43.9 [facility] Work Phone: Erythrocyte distribution width (RBC) [Ratio] 14.0 % 11.6-14.6 [facility] Work Phone: Immature granulocytes/100 WBC (Bld) 1.400 % 0.0-0.9 [facility] Work Phone: Comment on above: IG% - Immature Granu locytes (promyelocytes, myelocytes and metamyelocytes) > 1% indicates that a LEFT SHIFT is Present. MCH (RBC) [Entitic mass] 26.8 pg 27.0-32.0 [facility] Work Phone: Nucleated RBC/100 WBC (Bld) [Ratio] 0 % 0-5 [facility] Work Phone: MCHC Auto (RBC) [Mass/Vol]on 03-02-2022 MCHC (RBC) [Mass/Vol] 32.5 g/dL 32-36 [facility] Work Phone: Mucus LM Ql (Urine sed)on Mucus Ql (Urine sed) 3+ /hpf [facility] Work Phone: Nitrite Test strip Ql (U)on 03-02-2022 Nitrite Ql (U) Negative Negative [facility] Work Phone: No Panel Informationon 03-02 Estimated Creatinine Clearance Calc 49.49 ml/min [facility] Work Phone: Estimated GFR (MDRD) Amer 60 mL/min >60 [facility] Work Phone: Comment on above: GFR Calc Estimated GFR (MDRD) Non-Af Amer 49 mL/min >60 [facility] Work Phone: Comment on above: Non- GFR Calc Troponin I High Sensitivity 11 pg/mL 3.0-78.0 [facility] Work Phone: Comment on above: Please Note: New Thania t Units and Gender Specific Reference Ranges. For more information see Policy Stat Procedure [place] High Sensitivity Troponin (TNIH) and attachments. Platelets bldon 03-02-2022 Platelets (Bld) [#/Vol] 269 10*3/uL 150-450 [facility] Work Phone: Protein Test strip Ql (U)on 03-02-2022 Protein Ql (U) 30 mg/dl Negative [facility] Work Phone: Serum or plasma calcium antoine urement (mass/volume)on 03-02-2022 Calcium [Mass/Vol] 9.4 mg/dL 8.5-10.1 [facility] Work Phone: Serum or plasma creatinine m easurement (mass/volume)on 03-02-2022 Creatinine [Mass/Vol] 1.48 mg/dL 0.70-1.30 [facility] Work Phone: Comment on above: The validity of the calculated GFR & GFRAA in patients over 70 years has not been determined. Clinical correlation is essential. Serum or plasma urea nitroge n measurement (mass/volume)on 03-02-2022 Urea nitrogen [Mass/Vol] 25 mg/dL 7-18 [facility] Work Phone: Squamous epithelial cells de tection in urine sediment by light microscopyon 03-02-2022 Epithelial cells.squamous LM Ql (Urine sed) 0-5 SEEN /hpf 0-5 [facility] Work Phone: Thin prep Papanicolaou smear with manual screeningon 03-02-2022 Thin prep Papanicolaou smear with manual screening 10 5-15 [facility] Work Phone: Urine blood detectionon 02-12 RBC Ql (U) 10 /ul Negative [facility] Work Phone: RBC Ql (U) 0-5 SEEN /hpf 0-5 [facility] Work Phone: Urine clarityon 03-02-2022 Clarity (U) Clear Clear [facility] Work Phone: Urine color determinationon 03-02-2022 Color (U) Yellow Yellow [facility] Work Phone: Urine glucose detectionon Glucose Ql (U) 50 mg/dl Normal [facility] Work Phone: Urine leukocyte esterase det ection by dipstickon 03-02-2022 Leukocyte esterase Test strip Ql (U) Negative Negative [facility] Work Phone: Urine pHon 03-02-2022 pH (U) 5.0 [pH] 5.0 - 8.0 [facility] Work Phone: Urine sediment bacteria coun t by microscopy (number/high power field)on 03-02-2022 Bacteria LM.HPF (Urine sed) [#/Area] 2 /[HPF] None Seen [facility] Work Phone: Urine specific gravity measu rementon 03-02-2022 Specific gravity (U) [Rel density] 1.025 1.002-1.03 0 [facility] Work Phone: Urobilinogen Auto test strip Ql (U)on 03-02-2022 Urobilinogen Ql (U) Normal mg/dl Normal [facility] Work Phone: ECHOon 01-09-2022 [facility] CNPNon 01-02-2022 CNPN Telephone (VICTORIANO) RICHARD ROY ([id number]) 1945 M Date Time Provider Department 01/02/22 JUSTINA MONIQUE During your visit today, we recorded the following information about you: Justina Garcia LPN 01/02/2022 7:43 AM Signed ----- Message from Justina Monique APRN.[employer] sent at 01/02/2022 7:38 AM EDT ----- [...] Date Reviewed: 01/01/2022 Reviewed by: Justina Monique APRN.[employer] - Fully Assessed Reason for Visit: Results [...] mouth once daily. - blood sugar diagnostic ([facility]) test strip Test blood [...] Encounter Status:Closed by JUSTINA GARCIA on 01/02/22 [facility] CBC W Auto Differential pane l (Bld)on 01-01-2022 Abs Immature Gran 0.15 k/uL High <0.10 k/uL [facility] Basophils (Bld) [#/Vol] 0.06 10*3/uL <0.11 k/uL [facility] Basophils/100 WBC (Bld) 0.5 % [facility] Differential cell count method Nom (Bld) Auto [facility] Eosinophils (Bld) [#/Vol] 0.39 10*3/uL <0.46 k/ uL [facility] Eosinophils/100 WBC (Bld) 3.1 % [facility] Erythrocyte distribution width (RBC) [Ratio] 14.5 % 11.5 - 15.0 % [facility] Hematocrit (Bld) [Volume fraction] 46.6 % 39.0 - 51.0 % [facility] Hemoglobin (Bld) [Mass/Vol] 14.5 g/dL 13.0 - 17.0 g/dL [facility] Immature Gran % 1.2 % [facility] Lymphocytes (Bld) [#/Vol] 1.81 10*3/uL 1. 00 - 4.00 k/uL [facility] Lymphocytes/100 WBC (Bld) 14.5 % [facility] MCH (RBC) [Entitic mass] 26.6 pg 26. 0 - 34.0 pg [facility] MCHC (RBC) [Mass/Vol] 31.1 g/dL 30.5 - 36.0 g/dL [facility] MCV (RBC) [Entitic vol] 85.3 fL 80.0 - 100.0 fL [facility] Monocytes (Bld) [#/Vol] 0.86 10*3/uL <0.87 k/uL [facility] Monocytes/100 WBC (Bld) 6.9 % [facility] Neutrophils (Bld) [#/Vol] 9.20 10*3/uL High 1. 45 - 7.50 k/uL [facility] Neutrophils/100 WBC (Bld) 73.8 % [facility] Nucleated RBC (Bld) [#/Vol] 10*3/uL <0.01 k/ uL [facility] Nucleated RBC/100 WBC (Bld) [Ratio] 0.0 /100 WBC [facility] Platelet mean volume (Bld) [Entitic vol] 9.7 fL 9.0 - 12.7 fL [facility] Platelets (Bld) [#/Vol] 287 10*3/uL 150 - 400 k/uL [facility] RBC (Bld) [#/Vol] 5.46 10*6/uL 4.20 - 6.00 m/uL [facility] WBC (Bld) [#/Vol] 12.47 10*3/uL High 3.70 - 11.00 k/uL [facility] Comprehensive metabolic 2000 panelon 01-01-2022 Albumin [Mass/Vol] 4.2 g/dL 3.9 - 4.9 g/dL [facility] ALP [Catalytic activity/Vol] 96 U/L 38 - 113 U/L [facility] ALT [Catalytic activity/Vol] 29 U/L 10 - 54 U/L [facility] Anion gap [Moles/Vol] 12 mmol/L 9 - 18 mmol/L [facility] AST [Catalytic activity/Vol] 20 U/L 14 - 40 U/L [facility] Bilirubin [Mass/Vol] 0.6 mg/dL 0.2 - 1 .3 mg/dL [facility] Calcium [Mass/Vol] 9.4 mg/dL 8.5 - 10. 2 mg/dL [facility] Chloride [Moles/Vol] 101 mmol/L 97 - 10 5 mmol/L [facility] CO2 [Moles/Vol] 25 mmol/L 22 - 30 mmol/L [facility] Creatinine [Mass/Vol] 1.20 mg/dL 0.73 - 1.22 mg/dL [facility] Estimated Glomerular Filtration Rate 63 mL/min/1.73m >=60 mL/min/1.7 3m [facility] Glucose [Mass/Vol] 118 mg/dL High 74 - 99 mg/dL [facility] Potassium [Moles/Vol] 4.4 mmol/L 3.7 - 5.1 mmol/L [facility] Protein [Mass/Vol] 6.6 g/dL 6.3 - 8.0 g/dL [facility] Sodium [Moles/Vol] 138 mmol/L 136 - 144 mmol/L [facility] Urea nitrogen [Mass/Vol] 15 mg/dL 9 - 24 mg/dL [facility] PSA/PROSTSPECAG SCRNon 01-01 Prostate specific Ag [Mass/Vol] 1.75 ng/mL <2.60 ng/mL [facility] UA DIP, URINE (POC)on 2021 BILIRUBIN UA (POCT) Negative Negative [facility] CLARITY UA (POCT) Clear [facility] COLOR UA (POCT) Dark yellow [facility] GLUCOSE UA (POCT) 100 mg/dL Abnormal Negative mg/dL [facility] HEMOGLOBIN/BLOOD UA (POCT) Trace-intact Abnormal Negativ e [facility] KETONE UA (POCT) Negative Negative mg/dL [facility] LEUKOCYTES UA (POCT) Negative Negative [facility] NITRITE UA (POCT) Negative Negative [facility] PH UA (POCT) 5.5 4.5 - 8.0 [facility] Protein Ql (U) 30 mg/dL Abnormal Negative mg/dL [facility] SPECIFIC GRAVITY UA (POCT) >=1.030 1 .005 - 1.030 [facility] UROBILINOGEN UA (POCT) 1.0 E.U./dL Lanette l E.U./dL [facility] VITAMIN B12 BLOODon 01-02-20 Cobalamin (Vitamin B12) [Mass/Vol] 377 pg/mL 232-1,245 pg/mL [facility] Absolute lymphocyte counton 12-29-2021 Lymphocytes Auto (Unsp spec) [#/Vol] 1.56 10*3/uL 0.83-4.51 [facility] Work Phone: BCIDon 12-29-2021 Acinetobacter justen-baumanii complex Not detected Normal Not Detected [facility] [place] Comment on above: Performed By: #### B JIN #### [place] [address] Bacteroides fragilis Not detected Normal Not Detected [facility] ([place] Comment on above: Performed By: #### B JIN #### [place] [address] BCID Comment See Comment Normal [facility] ([place] Comment on above: Result Comment: Anti microbial [...] follow. Performed By: #### B JIN #### [place] [address] Kellie albicans Not detected Normal Not Detected [facility] ([place] Comment on above: Performed By: #### B JIN #### [facility] [address] [place] [address] Kellie auris Not detected Normal Not Detected [facility] ([place] Comment on above: Performed By: #### B JIN #### [facility] [address] [place] [address] Kellie glabrata Not detected Normal Not Detected [facility] ([place] Comment on above: Performed By: #### B JIN #### [facility] [address] [place] [address] Kellie krusei Not detected Normal Not Detected [facility] ([place] Comment on above: Performed By: #### B JIN #### [place] [address] Kellie parapsilosis Not detected Normal Not Detected [facility] ([place] Comment on above: Performed By: #### B JIN #### [place] [address] Kellie tropicalis Not detected Normal Not Detected [facility] ([place] Comment on above: Performed By: #### B JIN #### [place] [address] Cryptococcus neoformans-gattii Not detected Normal Not Detected [facility] ([place] Comment on above: Performed By: #### B JIN #### [place] [address] CTX-M (ESBL) Not Applicable Normal Not Detected [facility] ([place] Comment on above: Performed By: #### B JIN #### [place] [address] E. Coli Not detected Normal Not Detected [facility] ([place] Comment on above: Performed By: #### B JIN #### [facility] [address] [place] [address] Enterobacter cloacae Complex Not detected Normal Not Detected [facility] ([place] Comment on above: Performed By: #### B JIN #### [facility] [address] [place] [address] Enterobacterales Not detected Normal Not Detected [facility] ([place] Comment on above: Performed By: #### B JIN #### [place] [address] Enterococcus faecalis Not detected Normal Not Detected [facility] ([place] Comment on above: Performed By: #### B JIN #### [facility] [address] [place] [address] Enterococcus faecium Not detected Normal Not Detected [facility] ([place] Comment on above: Performed By: #### B JIN #### [place] [address] Haemophilus influenzae Not detected Normal Not Detected [facility] ([place] Comment on above: Performed By: #### B JIN #### [place] [address] IMP (Carbapenemase) Not Applicable Normal Not Detected [facility] ([place] Comment on above: Performed By: #### B JIN #### [place] [address] Klebsiella aerogenes Not detected Normal Not Detected [facility] ([place] Comment on above: Performed By: #### B JIN #### [place] [address] Klebsiella oxytoca Not detected Normal Not Detected [facility] ([place] Comment on above: Performed By: #### B JIN #### [place] [address] Klebsiella pneumoniae group Not detected Normal Not Detected [facility] ([place] Comment on above: Performed By: #### B JIN #### [place] [address] KPC (Carbapenemase) Not Applicable Normal Not Detected [facility] ([place] Comment on above: Performed By: #### B JIN #### [place] [address] Listeria monocytogenes Not detected Normal Not Detected [facility] ([place] Comment on above: Performed By: #### B JIN #### [place] [address] MCR-1 (Colistin Resistance) Not Applicable Normal Not Detected [facility] ([place] Comment on above: Performed By: #### B JIN #### [place] [address] Mec A/C Detected Abnormal Not Detected [facility] ([place] Comment on above: Performed By: #### B JIN #### [facility] [address] [place] [address] Mec A/C-MREJ (MRSA) Not Applicable Normal Not Detected [facility] ([place] Comment on above: Performed By: #### B JIN #### [facility] [address] [place] [address] NDM (Carbapenemase) Not Applicable Normal Not Detected [facility] ([place] Comment on above: Performed By: #### B JIN #### [facility] [address] [place] [address] Neisseria meningitidis (Encapsalated) Not detected Normal Not Detected [facility] ([place] Comment on above: Performed By: #### B JIN #### [place] [address] OXA-48 like (Carbapenemase) Not Applicable Normal Not Detected [facility] ([place] Comment on above: Performed By: #### B JIN #### [place] [address] Proteus Not detected Normal Not Detected [facility] ([place] Comment on above: Performed By: #### B JIN #### [place] [address] Pseudomonas aeruginosa Not detected Normal Not Detected [facility] ([place] Comment on above: Performed By: #### B JIN #### [place] [address] S. agalactiae Org specific cx Ql (Vag fld) Not detected Normal Not Detected [facility] ([place] Comment on above: Performed By: #### B JIN #### [facility] [address] [place] [address] Salmonella species Not detected Normal Not Detected [facility] ([place] Comment on above: Performed By: #### B JIN #### [place] [address] Serratia marcescens Not detected Normal Not Detected [facility] ([place] Comment on above: Performed By: #### B JIN #### [address] [address] Staphylococcus Detected Abnormal Not Detected [facility] ([place] Comment on above: Performed By: #### B JIN #### [address] [address] Staphylococcus aureus Not detected Normal Not Detected [facility] ([place] Comment on above: Result Comment: If S taphylococcus aureus is Detected, an Infectious Disease physician consult is required on identification. Performed By: #### B JIN #### [place] [address] Staphylococcus epidermidis Detected Abnormal N ot Detected [facility] ([place] Comment on above: Performed By: #### B JIN #### [place] [address] Staphylococcus lugdunensis Not detected Normal N ot Detected [facility] ([place] Comment on above: Performed By: #### B JIN #### [place] [address] Stenotropomonas maltophilia Not detected Normal Not Detected [facility] ([place] Comment on above: Performed By: #### B JIN #### [place] [address] Streptococcus Not detected Normal Not Detected [facility] ([place] Comment on above: Performed By: #### B JIN #### [address] [address] Streptococcus pneumoniae Not detected Normal Not Detected [facility] ([place] Comment on above: Performed By: #### B JIN #### [place] [address] Streptococcus pyogenes Not detected Normal Not Detected [facility] ([place] Comment on above: Performed By: #### B JIN #### [place] [id number] Van A/B Not Applicable Normal Not Detected [facility] ([place] Comment on above: Performed By: #### B JIN #### [address] [address] VIM (Carbapenemase) Not Applicable Normal Not Detected [facility] ([place] Comment on above: Performed By: #### B JIN #### [facility] [address] [place] [address] Basophil percentageon 2021 Basophils/100 WBC (Bld) 0.3 % 0-1 [facility] Work Phone: Chloride [Moles/Vol] 108 mmol/L 98-107 [facility] Work Phone: Eosinophils/100 WBC (Bld) 3.2 % 0-5 [facility] Work Phone: [phone] Glucose [Mass/Vol] 109 mg/dL 74-106 [facility] Work Phone: Comment on above: Fasting Glucose resu lt from 100 to 125 mg/dL suggests IMPAIRED HOMEOSTASIS per A.D.A. criteria. Neutrophils (Bld) [#/Vol] 6.6 10*3/uL 2.0-7.7 [facility] Work Phone: Neutrophils/100 WBC (Bld) 70.4 % 47-70 [facility] Work Phone: Potassium [Moles/Vol] 4.1 mmol/L 3.5-5.1 [facility] Work Phone: Sodium [Moles/Vol] 140 mmol/L 136-145 [facility] Work Phone: WBC (Bld) [#/Vol] 9.4 10*3/uL 4.4-11.0 [facility] Work Phone: Blood erythrocytes count (nu mber/volume)on 12-29-2021 RBC (Bld) [#/Vol] 4.61 10*6/uL 4.6-6.2 [facility] Work Phone: Blood hemoglobin measurement (mass/volume)on 12-29-2021 Hemoglobin (Bld) [Mass/Vol] 12.4 g/dL 13.0-16. 5 [facility] Work Phone: Blood lymphocytes/100 leukoc yteson 12-29-2021 Lymphocytes/100 WBC (Bld) 16.7 % 19-41 [facility] Work Phone: [phone] Blood monocytes/100 leukocyt eson 12-29-2021 Monocytes/100 WBC (Bld) 8.7 % 0-10 [facility] Work Phone: Blood platelet mean volumeon 12-29-2021 Platelet mean volume (Bld) [Entitic vol] 9.3 fL 6.2-12.0 [facility] Work Phone: Determination of erythrocyte mean corpuscular volume (MCV)on 12-29-2021 MCV (RBC) [Entitic vol] 82.9 fL 80-94 [facility] Work Phone: Glucose Glucometer (BldC) [M ass/Vol]on 12-29-2021 Glucose [Mass/Vol] 129 mg/dL 74-106 [facility] Work Phone: Comment on above: MANAGEMENT OF PATIEN T CARE PER NURSING PROTOCOL Hematocrit Auto (Bld) [Volum e fraction]on 12-29-2021 Hematocrit (Bld) [Volume fraction] 38.2 % 40-54 [facility] Work Phone: Laboratory - Chemistry and C hemistry - challengeon 12-29-2021 CO2 [Moles/Vol] 27.0 mmol/L 21.0-32.0 [facility] Work Phone: Urea nitrogen/Creatinine [Mass ratio] 16.5 mg/mg 10-20 [facility] Work Phone: Laboratory - Hematology and Cell countson 12-29-2021 Erythrocyte distribution width (RBC) [Entitic vol] 42.5 fL 35.1-43.9 [facility] Work Phone: Erythrocyte distribution width (RBC) [Ratio] 14.2 % 11.6-14.6 [facility] Work Phone: Immature granulocytes/100 WBC (Bld) 0.700 % 0.0-0.9 [facility] Work Phone: Comment on above: IG% - Immature Granu locytes (promyelocytes, myelocytes and metamyelocytes) > 1% indicates that a LEFT SHIFT is Present. MCH (RBC) [Entitic mass] 26.9 pg 27.0-32.0 [facility] Work Phone: Nucleated RBC/100 WBC (Bld) [Ratio] 0 % 0-5 [facility] Work Phone: MCHC Auto (RBC) [Mass/Vol]on 12-29-2021 MCHC (RBC) [Mass/Vol] 32.5 g/dL 32-36 [facility] Work Phone: No Panel Informationon 12-29 Estimated Creatinine Clearance Calc 71.11 ml/min [facility] Work Phone: Estimated GFR (MDRD) Amer 91 mL/min >60 [facility] Work Phone: Comment on above: GFR Calc Estimated GFR (MDRD) Non-Af Amer 75 mL/min >60 [facility] Work Phone: Comment on above: Non- GFR Calc Platelets bldon 12-29-2021 Platelets (Bld) [#/Vol] 177 10*3/uL 150-450 [facility] Work Phone: Serum or plasma calcium antoine urement (mass/volume)on 12-29-2021 Calcium [Mass/Vol] 8.4 mg/dL 8.5-10.1 [facility] Work Phone: Serum or plasma creatinine m easurement (mass/volume)on 12-29-2021 Creatinine [Mass/Vol] 1.03 mg/dL 0.70-1.30 [facility] Work Phone: Comment on above: The validity of the calculated GFR & GFRAA in patients over 70 years has not been determined. Clinical correlation is essential. Serum or plasma urea nitroge n measurement (mass/volume)on 12-29-2021 Urea nitrogen [Mass/Vol] 17 mg/dL 7-18 [facility] Work Phone: Thin prep Papanicolaou smear with manual screeningon 12-29-2021 Thin prep Papanicolaou smear with manual screening 5 5-15 [facility] Work Phone: Basophil percentageon 2021 Lactate [Moles/Vol] 1.9 mmol/L 0.4-2.0 [facility] Work Phone: COon 12-28-2021 Carbon Monoxide Level See Comments Normal A [facility] ([place] Comment on above: Order Comment: See S eparate Report Performed By: #### L IP, MG, TROPHS, CK, LAC, GFR, CO, CMP ####[address] [address] Laboratory - Chemistry and C hemistry - challengeon 12-28-2021 Magnesium [Mass/Vol] 1.8 mg/dL 1.6-2.6 [facility] Work Phone: No Panel Informationon 12-28 Troponin I High Sensitivity 23 pg/mL 3.0-78.0 [facility] Work Phone: Comment on above: Please Note: New Thania t Units and Gender Specific Reference Ranges. For more information see Policy Stat Procedure [place] High Sensitivity Troponin (TNIH) and attachments. .Auto Diffon 12-27-2021 Basophil, Absolute 0.1 10 3/mcL Normal 0.0-0.2 [facility] ([place] Comment on above: Performed By: #### L IP, MG, TROPHS, CK, LAC, GFR, CO, CMP #### [address] [address] Basophils/100 WBC (Bld) 0.4 % Normal 0.0-2.5 A [facility] ([place] Comment on above: Performed By: #### L IP, MG, TROPHS, CK, LAC, GFR, CO, CMP #### [address] [address] Eosinophil, Absolute 0.1 10 3/mcL Normal 0.0-0.4 [facility] ([place] Comment on above: Performed By: #### L IP, MG, TROPHS, CK, LAC, GFR, CO, CMP #### [address] [place] [address] Eosinophils/100 WBC (Bld) 0.7 % Normal 0.0-7.0 [facility] ([place] Comment on above: Performed By: #### L IP, MG, TROPHS, CK, LAC, GFR, CO, CMP #### [address] [address] Lymphocyte, Absolute 1.4 10 3/mcL Normal 0.8-3.9 [facility] ([place] Comment on above: Performed By: #### L IP, MG, TROPHS, CK, LAC, GFR, CO, CMP #### [address] [address] Lymphocytes/100 WBC (Bld) 9.6 % Low 10.0-50.0 [facility] ([place] Comment on above: Performed By: #### L IP, MG, TROPHS, CK, LAC, GFR, CO, CMP #### [address] [address] Monocyte, Absolute 0.8 10 3/mcL Normal 0.2-1.0 [facility] ([place] Comment on above: Performed By: #### L IP, MG, TROPHS, CK, LAC, GFR, CO, CMP #### [address] [address] Monocytes/100 WBC (Bld) 5.3 % Normal 1.7-13.0 A [facility] ([place] Comment on above: Performed By: #### L IP, MG, TROPHS, CK, LAC, GFR, CO, CMP #### [address] [address] Neutrophils/100 WBC (Bld) 84.0 % High 37.0-80.0 [facility] ([place] Comment on above: Performed By: #### L IP, MG, TROPHS, CK, LAC, GFR, CO, CMP #### [address] [address] .GFRon 12-27-2021 GFR 43 ml/min/1.73sqm Normal [facility] ([place] Comment on above: Result Comment: GFR Population [...] CK, LAC, GFR, CO, CMP ####[place] [address] [place], [place] [address] GFR Non- 35 ml/min/1.73sqm Normal [facility] ([place] Comment on above: Result Comment: GFR Population [...] TROPHS, CK, LAC, GFR, CO, CMP ####[place] [address] [place], [place] [address] .MDWon 12-27-2021 Monocyte Distribution Width 15.91 Normal 0.00-20. 00 [facility] ([place] Comment on above: Result Comment: For ED adult patients suspected of sepsis, MDW<=20.0 does not rule out sepsis or risk of sepsis Performed By: #### L IP, MG, TROPHS, CK, LAC, GFR, CO, CMP ####[place] [place], [place] [address] .NEUABSon 12-27-2021 Neutrophil, Absolute 12.6 10 3/mcL High 2.9-6.2 A [facility] ([place] Comment on above: Performed By: #### L IP, MG, TROPHS, CK, LAC, GFR, CO, CMP ####[address] [place], [place] [address] Basophil percentageon 2021 Basophil percentage 3.8 mg/dL 2.5-4.9 [facility] Work Phone: Bilirubin [Mass/Vol] 0.80 mg/dL 0.20-1.00 [facility] Work Phone: Comment on above: For patients on eltr ombopag therapy, use of Dimension [place] TBIL is not recommended. Protein [Mass/Vol] 6.3 g/dL 6.4-8.2 [facility] Work Phone: CBCon 12-27-2021 Erythrocyte distribution width (RBC) [Ratio] 14.9 % High 11.5-14.5 [facility] ([place] Comment on above: Performed By: #### L IP, MG, TROPHS, CK, LAC, GFR, CO, CMP #### [place] [address] [address] Hematocrit (Bld) [Volume fraction] 43.2 % Normal 42.0-52.0 [facility] ([place] Comment on above: Performed By: #### L IP, MG, TROPHS, CK, LAC, GFR, CO, CMP #### [address] [address] Hgb 14.4 G/dL Normal 14.0-18.0 [facility] ([place] Comment on above: Performed By: #### L IP, MG, TROPHS, CK, LAC, GFR, CO, CMP #### [place] [address] [place], [place] [address] MCH (RBC) [Entitic mass] 26.8 pg Low 27.0-31.2 [facility] ([place] Comment on above: Performed By: #### L IP, MG, TROPHS, CK, LAC, GFR, CO, CMP #### [address] [address] MCHC 33.4 G/dL Normal 31.8-35.4 [facility] ([place] Comment on above: Performed By: #### L IP, MG, TROPHS, CK, LAC, GFR, CO, CMP #### [address] [address] MCV (RBC) [Entitic vol] 80.2 fL Normal 80.0-94.0 A [facility] ([place] Comment on above: Performed By: #### L IP, MG, TROPHS, CK, LAC, GFR, CO, CMP #### [address] [address] Platelet 305 10 3/mcL Normal 130-400 [facility] ([place] Comment on above: Performed By: #### L IP, MG, TROPHS, CK, LAC, GFR, CO, CMP #### [address] [address] Platelet mean volume (Bld) [Entitic vol] 7.5 fL Normal 7.4-10.4 [facility] ([place] Comment on above: Performed By: #### L IP, MG, TROPHS, CK, LAC, GFR, CO, CMP #### [address] [address] RBC 5.39 10 6/mcL Normal 4.04-6.13 [facility] ([place] Comment on above: Performed By: #### L IP, MG, TROPHS, CK, LAC, GFR, CO, CMP #### [address] [address] WBC 15.0 10 3/mcL High 4.6-10.8 [facility] ([place] Comment on above: Performed By: #### L IP, MG, TROPHS, CK, LAC, GFR, CO, CMP #### [address], [place] [address] CKon 12-27-2021 CK [Catalytic activity/Vol] 220 U/L Normal 39-308 [facility] ([place] Comment on above: Performed By: #### L IP, MG, TROPHS, CK, LAC, GFR, CO, CMP ####[address] [place], [place] [address] CMPon 12-27-2021 Albumin Level 3.8 G/dL Normal 3.4-4.8 [facility] ([place] Comment on above: Performed By: #### L IP, MG, TROPHS, CK, LAC, GFR, CO, CMP ####[place] [address] [place], [place] [address] Albumin/Globulin [Mass ratio] 1.4 {ratio} Normal 1.1-2.5 [facility] ([place] Comment on above: Performed By: #### L IP, MG, TROPHS, CK, LAC, GFR, CO, CMP ####[address] [place], [place] [address] ALP [Catalytic activity/Vol] 105 U/L Normal 40-135 [facility] ([place] Comment on above: Performed By: #### L IP, MG, TROPHS, CK, LAC, GFR, CO, CMP ####[place] [address] [place], [place] [address] ALT [Catalytic activity/Vol] 20 U/L Normal 16-63 [facility] ([place] Comment on above: Performed By: #### L IP, MG, TROPHS, CK, LAC, GFR, CO, CMP ####[place] [address] [place], [place] [address] AST [Catalytic activity/Vol] 16 U/L Normal 10-40 [facility] ([place] Comment on above: Performed By: #### L IP, MG, TROPHS, CK, LAC, GFR, CO, CMP ####[place] [address] [place], [place] [address] Bili Total 0.8 mg/dL Normal 0.2-1.0 [facility] ([place] Comment on above: Result Comment: Use of this assay is not recommended for patients undergoing treatment with eltrombopag due to the potential for falsely elevated results. Performed By: #### L IP, MG, TROPHS, CK, LAC, GFR, CO, CMP ####[place] [place], [place] [address] BUN/Creatinine Ratio 12 ratio Normal 7-27 [facility] ([place] Comment on above: Performed By: #### L IP, MG, TROPHS, CK, LAC, GFR, CO, CMP ####[address] [place], [place] [address] Calcium [Mass/Vol] 9.4 mg/dL Normal 8.4-10.2 [facility] ([place] Comment on above: Performed By: #### L IP, MG, TROPHS, CK, LAC, GFR, CO, CMP ####[place] [place], [place] [address] Chloride [Moles/Vol] 104 mmol/L Normal 98-107 [facility] ([place] Comment on above: Performed By: #### L IP, MG, TROPHS, CK, LAC, GFR, CO, CMP ####[place] [address] [place], [place] [address] CO2 [Moles/Vol] 22 mmol/L Low 23-31 [facility] ([place] Comment on above: Performed By: #### L IP, MG, TROPHS, CK, LAC, GFR, CO, CMP ####[address] [place], [place] [address] Creatinine [Mass/Vol] 1.88 mg/dL High 0.70-1.30 [facility] ([place] Comment on above: Performed By: #### L IP, MG, TROPHS, CK, LAC, GFR, CO, CMP ####[place] [place], [place] [address] Electrolyte Balance 13.0 mEq/L Normal 4.0-15.0 [facility] ([place] Comment on above: Performed By: #### L IP, MG, TROPHS, CK, LAC, GFR, CO, CMP ####[address] [place], [place] [address] Globulin 2.8 G/dL Normal [facility] ([place] Comment on above: Performed By: #### L IP, MG, TROPHS, CK, LAC, GFR, CO, CMP ####[place] [address] [place], [place] [address] Glucose [Mass/Vol] 205 mg/dL High 83-110 [facility] ([place] Comment on above: Performed By: #### L IP, MG, TROPHS, CK, LAC, GFR, CO, CMP ####[place] [place], [place] [address] Potassium [Moles/Vol] 5.2 mmol/L High 3.5-5.1 [facility] ([place]) Comment on above: Performed By: #### L IP, MG, TROPHS, CK, LAC, GFR, CO, CMP ####[address] [place], [place] [address] Sodium [Moles/Vol] 139 mmol/L Normal 136-145 [facility] ([place] Comment on above: Performed By: #### L IP, MG, TROPHS, CK, LAC, GFR, CO, CMP ####[address] [place], [place] [address] Total Protein 6.6 G/dL Normal 6.4-8.2 [facility] ([place] Comment on above: Performed By: #### L IP, MG, TROPHS, CK, LAC, GFR, CO, CMP ####[address] [place], [place] [address] Urea nitrogen [Mass/Vol] 23 mg/dL High 7-18 [facility] ([place] Comment on above: Performed By: #### L IP, MG, TROPHS, CK, LAC, GFR, CO, CMP ####[address] [place], [place] [address] [id number] 12-27-2021 Date of Onset [id number] Invalid Interpretation Code [facility] ([place] Comment on above: Performed By: #### C OVD19, FLURSV #### [place] [address] Employed in Healthcare No [facility] ([place] Comment on above: Performed By: #### C OVD19, FLURSV #### [place] [address] First Test No [facility] ([place] Comment on above: Performed By: #### C OVD19, FLURSV #### [place] [address] Hospitalized No [facility] ([place] Comment on above: Performed By: #### C OVD19, FLURSV #### [place] [address] ICU No [facility] ([place] Comment on above: Performed By: #### C OVD19, FLURSV #### [place] [address] Not [facility] ([place] Comment on above: Performed By: #### C OVD19, FLURSV #### [place] [address] Resides in Congregate Care Setting No [facility] ([place] Comment on above: Performed By: #### C OVD19, FLURSV #### [place] [address] SARS-CoV-2 (COVID-19) RNA ANGELY+probe Ql (Unsp spec) Positive Abnormal Negative [facility] ([place] Comment on above: Performed By: #### C OVD19, FLURSV #### [place] [address] SARS-CoV-2 (COVID-19) RNA ANGELY+probe Ql (Unsp spec) [facility] ([place]) Comment on above: Result Comment: Posi tive [...] or from non-specific signals in the assay. [employer] SARS-CoV-2 Assay is a Real-Time reverse-transcriptase polymerase [...] Performed By: #### C OVD19, FLURSV #### [address] [address] Symptomatic as Defined by CDC No Normal [facility] ([place] Comment on above: Performed By: #### C OVD19, FLURSV #### [address] [address] [address] HEAD OR BRAIN W/O CONTRAS Ton [...] LINARES Normal [facility] ([place] Carboxyhemoglobinon 12-28-19 Carboxyhemoglobin (Bld) [Mass/Vol] 1.9 % 0.0-1.5 [facility] Work Phone: Comment on above: * NON-SMOKER RANGE 1 .6 - 5.0% * LIGHT SMOKER RANGE 5.1 - 9.0% * HEAVY SMOKER RANGE FLURSVon 12-27-2021 Flu A PCR (AO) Negative Normal Negative [facility] ([place] Comment on above: Result Comment: Posi tive [...] virus (RSV) nucleic acid in nasopharyngeal swab (PITCH GATHERER) specimens from patients with signs and symptoms of respiratory infection in conjunction with clinical and laboratory findings. The test is intended for use as an aid in the differential diagnosis of influenza A virus, influenza B virus, and RSV in humans and is not intended to detect influenza C. Performed By: #### C OVD19, FLURSV #### [place] [address] [place], [place] [address] Flu B PCR (AO) Negative Normal Negative [facility] ([place] Comment on above: Result Comment: Posi tive [...] REPEAT COLLECTION AND TESTING IS RECOMMENDED. The [facility] Flu A/B & RSV Assay is a real-time polymerase chain reaction (PCR) based qualitative in vitro diagnostic test for the direct detection and differentiation of influenza A virus, influenza B virus, and respiratory syncytial virus (RSV) nucleic acid in nasopharyngeal swab (PITCH GATHERER) specimens from patients with signs and symptoms of respiratory infection in conjunction with clinical and laboratory findings. The test is intended for use as an aid in the differential diagnosis of influenza A virus, influenza B virus, and RSV in humans and is not intended to detect influenza C. Performed By: #### C OVD19, FLURSV #### [place] [address] [place], [place] [address] RSV PCR (AO) Negative Normal Negative [facility] ([place] Comment on above: Result Comment: Posi tive [...] REPEAT COLLECTION AND TESTING IS RECOMMENDED. The [facility] Flu A/B & RSV Assay is a real-time polymerase chain reaction (PCR) based qualitative in vitro diagnostic test for the direct detection and differentiation of influenza A virus, influenza B virus, and respiratory syncytial virus (RSV) nucleic acid in nasopharyngeal swab (PITCH GATHERER) specimens from patients with signs and symptoms of respiratory infection in conjunction with clinical and laboratory findings. The test is intended for use as an aid in the differential diagnosis of influenza A virus, influenza B virus, and RSV in humans and is not intended to detect influenza C. Performed By: #### C OVD19, FLURSV #### [place] [address] [place], [place] [address] INR in Blood by Coagulation assayon 12-27-2021 INR Coag (Bld) [Relative time] 2.4 {INR} [facility] Work Phone: LABORATORYOrdered By: Ramiro Rascon on [...] definite cause of disease. Laboratories within the [facility] and its territories are required [...] High 0.4-2.0 [facility] ([place] Comment on above: Performed By: #### L AC #### [address] [place], [place] [address] Lactic Acid Lvl 4.6 mmol/L High 0.4-2.0 [facility] ([place] Comment on above: Performed By: #### L IP, MG, TROPHS, CK, LAC, GFR, CO, CMP ####[address] [place], [place] [address] LIPon 12-27-2021 Lipase Level 67 U/L Low 73-393 [facility] ([place] Comment on above: Performed By: #### L IP, MG, TROPHS, CK, LAC, GFR, CO, CMP ####[address] [place], [place] [address] Laboratory - Chemistry and C hemistry - challengeon 12-27-2021 ALP [Catalytic activity/Vol] 89 U/L 45-117 [facility] Work Phone: ALT [Catalytic activity/Vol] 26 U/L 16-61 [facility] Work Phone: Globulin (S) [Mass/Vol] 3.1 g/dL 2.2-4.2 [facility] Work Phone: Laboratory - Coagulationon 0 12-27-2021 PT Coag (PPP) [Time] 25.5 s 11.7-14.9 [facility] Work Phone: MGon 12-27-2021 Magnesium [Mass/Vol] 1.3 mg/dL Low 1.8-2.4 [facility] ([place]) Comment on above: Performed By: #### L IP, MG, TROPHS, CK, LAC, GFR, CO, CMP ####[address] [address] PROon 12-27-2021 INR Coag (PPP) [Relative time] 2.7 {INR} High 0.9-1.2 [facility] ([place] Comment on above: Result Comment: Tony dard [...] Performed By: #### P RO #### [place] [address] [address] PT Coag (PPP) [Time] 31.6 s High 9.7-14.3 [facility] ([place] Comment on above: Performed By: #### P RO #### [place] [address] [address] Serum or plasma albumin antoine urement (mass/volume)on 12-27-2021 Albumin [Mass/Vol] 3.2 g/dL 3.2-5.0 [facility] Work Phone: Serum or plasma albumin/glob ulin mass ratioon 12-27-2021 Albumin/Globulin [Mass ratio] 1.0 {ratio} 0.9-2.4 [facility] Work Phone: TROPHSon 12-27-2021 Troponin I High Sensitivity 11.1 ng/L Normal 0.0-76.2 [facility] ([place] Comment on above: Performed By: #### L IP, MG, TROPHS, CK, LAC, GFR, CO, CMP #### [place] [address] [place], [place] [address] Thin prep Papanicolaou smear with manual screeningon 12-27-2021 Thin prep Papanicolaou smear with manual screening 44 U/L 15-37 [facility] Work Phone: XR CHEST 1 VIEWon [...] LINARES Normal [facility] ([place] Absolute lymphocyte counton 12-06-2021 Lymphocytes Auto (Unsp spec) [#/Vol] 0.42 10*3/uL 0.83-4.51 [facility] Work Phone: Basophil percentageon 2021 Basophils/100 WBC (Bld) 0.4 % 0-1 [facility] Work Phone: Chloride [Moles/Vol] 105 mmol/L 98-107 [facility] Work Phone: Eosinophils/100 WBC (Bld) 2.3 % 0-5 [facility] Work Phone: Glucose [Mass/Vol] 138 mg/dL 74-106 [facility] Work Phone: Comment on above: Fasting Glucose resu lt greater than or equal to 126 mg/dL suggests DIABETES MELLITUS per A.D.A. criteria. Neutrophils (Bld) [#/Vol] 7.5 10*3/uL 2.0-7.7 [facility] Work Phone: Neutrophils/100 WBC (Bld) 81.2 % 47-70 [facility] Work Phone: Potassium [Moles/Vol] 3.7 mmol/L 3.5-5.1 [facility] Work Phone: Sodium [Moles/Vol] 138 mmol/L 136-145 [facility] Work Phone: WBC (Bld) [#/Vol] 9.3 10*3/uL 4.4-11.0 [facility] Work Phone: Basophil percentage 0-5 SEEN /hpf 0-5 [facility] Work Phone: Bilirubin Test strip Ql (U)o n 12-06-2021 Bilirubin Ql (U) Negative Negative [facility] Work Phone: Blood erythrocytes count (nu mber/volume)on 12-06-2021 RBC (Bld) [#/Vol] 5.07 10*6/uL 4.6-6.2 [facility] Work Phone: Blood hemoglobin measurement (mass/volume)on 12-06-2021 Hemoglobin (Bld) [Mass/Vol] 13.8 g/dL 13.0-16. 5 [facility] Work Phone: Blood lymphocytes/100 leukoc yteson 12-06-2021 Lymphocytes/100 WBC (Bld) 4.5 % 19-41 [facility] Work Phone: [phone] Blood manual differential co mment interpretation (narrative result)on 12-06-2021 Manual differential comment Ori (Bld) [Interp] SCANNED [facility] Work Phone: Comment on above: LYMPHOPENIA NOTED Blood monocytes/100 leukocyt eson 12-06-2021 Monocytes/100 WBC (Bld) 8.6 % 0-10 [facility] Work Phone: Blood platelet mean volumeon 12-06-2021 Platelet mean volume (Bld) [Entitic vol] 9.2 fL 6.2-12.0 [facility] Work Phone: Determination of erythrocyte mean corpuscular volume (MCV)on 12-06-2021 MCV (RBC) [Entitic vol] 83.0 fL 80-94 [facility] Work Phone: Hematocrit Auto (Bld) [Volum e fraction]on 12-06-2021 Hematocrit (Bld) [Volume fraction] 42.1 % 40-54 [facility] Work Phone: INR in Blood by Coagulation assayon 12-06-2021 INR Coag (Bld) [Relative time] 3.3 {INR} [facility] Work Phone: Ketones Test strip Ql (U)on 12-06-2021 Ketones Ql (U) 5 mg/dl Negative [facility] Work Phone: Laboratory - Chemistry and C hemistry - challengeon 12-06-2021 CO2 [Moles/Vol] 24.0 mmol/L 21.0-32.0 [facility] Work Phone: Urea nitrogen/Creatinine [Mass ratio] 14.2 mg/mg 10-20 [facility] Work Phone: Laboratory - Coagulationon 0 12-06-2021 PT Coag (PPP) [Time] 32.9 s 11.7-14.9 [facility] Work Phone: Laboratory - Hematology and Cell countson 12-06-2021 Erythrocyte distribution width (RBC) [Entitic vol] 42.4 fL 35.1-43.9 [facility] Work Phone: Erythrocyte distribution width (RBC) [Ratio] 14.0 % 11.6-14.6 [facility] Work Phone: Immature granulocytes/100 WBC (Bld) 3.000 % 0.0-0.9 [facility] Work Phone: Comment on above: IG% - Immature Granu locytes (promyelocytes, myelocytes and metamyelocytes) > 1% indicates that a LEFT SHIFT is Present. MCH (RBC) [Entitic mass] 27.2 pg 27.0-32.0 [facility] Work Phone: Nucleated RBC/100 WBC (Bld) [Ratio] 0 % 0-5 [facility] Work Phone: MCHC Auto (RBC) [Mass/Vol]on 12-06-2021 MCHC (RBC) [Mass/Vol] 32.8 g/dL 32-36 [facility] Work Phone: Mucus LM Ql (Urine sed)on Mucus Ql (Urine sed) 0 SEEN /hpf [facility] Work Phone: Nitrite Test strip Ql (U)on 12-06-2021 Nitrite Ql (U) Negative Negative [facility] Work Phone: No Panel Informationon 12-06 Estimated Creatinine Clearance Calc 61.03 ml/min [facility] Work Phone: Estimated GFR (MDRD) Amer 76 mL/min >60 [facility] Work Phone: Comment on above: GFR Calc Estimated GFR (MDRD) Non-Af Amer 63 mL/min >60 [facility] Work Phone: Comment on above: Non- GFR Calc Troponin I High Sensitivity 5 pg/mL 3.0-78.0 [facility] Work Phone: Comment on above: Please Note: New Thania t Units and Gender Specific Reference Ranges. For more information see Policy Stat Procedure [place] High Sensitivity Troponin (TNIH) and attachments. SARS-CoV-2 & FLU Antigen (Rapid) SARS-CoV-2 (COVID 19) [facility] Work Phone: Platelets bldon 12-06-2021 Platelets (Bld) [#/Vol] 229 10*3/uL 150-450 [facility] Work Phone: Protein Test strip Ql (U)on 12-06-2021 Protein Ql (U) 30 mg/dl Negative [facility] Work Phone: Serum or plasma calcium antoine urement (mass/volume)on 12-06-2021 Calcium [Mass/Vol] 8.9 mg/dL 8.5-10.1 [facility] Work Phone: Serum or plasma creatinine m easurement (mass/volume)on 12-06-2021 Creatinine [Mass/Vol] 1.20 mg/dL 0.70-1.30 [facility] Work Phone: Comment on above: The validity of the calculated GFR & GFRAA in patients over 70 years has not been determined. Clinical correlation is essential. Serum or plasma urea nitroge n measurement (mass/volume)on 12-06-2021 Urea nitrogen [Mass/Vol] 17 mg/dL 7-18 [facility] Work Phone: Squamous epithelial cells de tection in urine sediment by light microscopyon 12-06-2021 Epithelial cells.squamous LM Ql (Urine sed) 0-5 SEEN /hpf 0-5 [facility] Work Phone: Thin prep Papanicolaou smear with manual screeningon 12-06-2021 Thin prep Papanicolaou smear with manual screening 9 5-15 [facility] Work Phone: Urine blood detectionon 11-13 RBC Ql (U) 10 /ul Negative [facility] Work Phone: RBC Ql (U) 0 SEEN /hpf 0-5 [facility] Work Phone: Urine clarityon 12-06-2021 Clarity (U) Clear Clear [facility] Work Phone: Urine color determinationon 12-06-2021 Color (U) Yellow Yellow [facility] Work Phone: Urine glucose detectionon Glucose Ql (U) 100 mg/dl Normal [facility] Work Phone: Urine leukocyte esterase det ection by dipstickon 12-06-2021 Leukocyte esterase Test strip Ql (U) 25 /ul Negative [facility] Work Phone: Urine pHon 12-06-2021 pH (U) 5.0 [pH] 5.0 - 8.0 [facility] Work Phone: Urine sediment bacteria coun t by microscopy (number/high power field)on 12-06-2021 Bacteria LM.HPF (Urine sed) [#/Area] 1 /[HPF] None Seen [facility] Work Phone: Urine specific gravity measu rementon 12-06-2021 Specific gravity (U) [Rel density] 1.025 1.002-1.03 0 [facility] Work Phone: Urobilinogen Auto test strip Ql (U)on 12-06-2021 Urobilinogen Ql (U) 1 mg/dl Normal [facility] Work Phone: GLUCOSE, BLOOD (POC)on 10-10 Glucose [Mass/Vol] 121 mg/dL Abnormal 74 - 99 mg/dL [facility] [place] Glucose [Mass/Vol] 144 mg/dL Abnormal 74 - 99 mg/dL [facility] [place] No Panel Informationon 10-10 [facility] [place] CTA CHEST (GATED) W IVCONon 07-27-2021 CTA CHEST (GATED) W IVCON * * *Final Rep ort* * * DATE OF EXAM: Jul 27 2021 11:00AM [facility] 0125 - CTA [...] The arch vessel branching pattern is normal. 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 Cholelithiasis without findings of acute cholecystitis. Hand Stamper: BLAKE Transcribe Date/Time: Jul 27 2021 11:21A Dictated by : BALBIR RAYGOZA MD This examination was interpreted and the report reviewed and electronically signed by: SADE (more content not included)... Normal [facility] Laboratory - Microbiology an d Antimicrobial susceptibility Bacteria identified Cx Nom (Bld) No growth in 5 days. [facility] Work Phone: No Panel Information SARS-CoV-2 & FLU Antigen (Rapid) SARS-CoV-2 (COVID 19) [facility] Work Phone: Vital Signs Date Time Vital Sign Value Performing Clinician Faci lity 02-11-2025 15:20-0400 Body temperature 98.4 [degF] Dr. Luis Caldera MD Work Phone: [facility] 02-11-2025 15:20-0400 Diastolic blood pressure 64 mm[Hg] Dr. Luis Caldera MD Work Phone: [facility] 02-11-2025 15:20-0400 Heart rate 61 /min Dr. Luis Caldera MD Work Phone: 0(966)567-217989 [place] [address] 02-11-2025 15:20-0400 Inhaled oxygen flow rate 2 L/min Dr. Luis Caldera MD Work Phone: 2(896)711-087089 [place] [address] 02-11-2025 15:20-0400 Respiratory rate 18 /min Dr. Luis Caldera MD Work Phone: 2(309)774-354289 [place] [address] 02-11-2025 15:20-0400 SaO2% (BldA) [Mass fraction] 96 % Dr. Luis Caldera MD Work Phone: 3(130)194-655489 [place] [address] 02-11-2025 15:20-0400 Systolic blood pressure 132 mm[Hg] Dr. Luis Caldera MD Work Phone: 4(613)757-409889 [place] [address] 02-11-2025 05:55-0400 Body mass index (BMI) [Ratio] 34.8 kg/m2 Dr. Luis Caldera MD Work Phone: 0(724)300-785489 [place] [address] 02-11-2025 05:55-0400 Body weight 116.[address] Luis Caldera MD Work Phone: 6(913)569-501489 [place] [address] 02-08-2025 12:01-0400 Body height 182.[address] Luis Caldera MD Work Phone: 2(123)759-783189 [place] [address] 02-03-2025 00:00-0400 Body temperature 99 [degF] Dr. Luis Caldera MD Work Phone: 8(592)357-762089 [place] [address] 02-03-2025 00:00-0400 Diastolic blood pressure 52 mm[Hg] Dr. Luis Caldera MD Work Phone: 1(032)159-096189 [place] [address] 02-03-2025 00:00-0400 Heart rate 68 /min Dr. Luis Caldera MD Work Phone: 3(891)652-162289 [place] [address] 02-03-2025 00:00-0400 Respiratory rate 20 /min Dr. Luis Caldera MD Work Phone: 3(879)205-156689 [place] [address] 02-03-2025 00:00-0400 SaO2% (BldA) [Mass fraction] 97 % Dr. Luis Caldera MD Work Phone: 5(734)868-851389 [place] [address] 02-03-2025 00:00-0400 Systolic blood pressure 127 mm[Hg] Dr. Luis Caldera MD Work Phone: 5(795)450-001089 [place] [address] 02-02-2025 19:42-0400 Body height 182.[address] Luis Caldera MD Work Phone: 3(369)258-838689 [place] [address] 02-02-2025 19:42-0400 Body mass index (BMI) [Ratio] 35.7 kg/m2 Dr. Luis Caldera MD Work Phone: 4(445)084-577689 [place] [address] 02-02-2025 19:42-0400 Body weight 119.[address] Luis Caldera MD Work Phone: 5(026)744-903689 [place] [address] 02-02-2025 19:42-0400 Inhaled oxygen flow rate 15 L/min Dr. Luis Caldera MD Work Phone: 5(108)596-093589 [place] [address] 10-12-2024 13:12-0400 Body height 182.[address] Luis Caldera MD Work Phone: 8(702)645-212489 [place] [address] 10-12-2024 13:12-0400 Body mass index (BMI) [Ratio] 32.3 kg/m2 Dr. Luis Caldera MD Work Phone: 2(274)273-923789 [place] [address] 10-12-2024 13:12-0400 Body weight 107.[address] Luis Caldera MD Work Phone: 9(676)370-402989 [place] [address] 10-12-2024 13:12-0400 Diastolic blood pressure 57 mm[Hg] Dr. Luis Caldera MD Work Phone: 5(775)929-161889 [place] [address] 10-12-2024 13:12-0400 Heart rate 65 /min Dr. Luis Caldera MD Work Phone: 2(189)502-127989 [place] [address] 10-12-2024 13:12-0400 Respiratory rate 18 /min Dr. Luis Caldera MD Work Phone: 7(081)702-944189 [place] [address] 10-12-2024 13:12-0400 SaO2% (BldA) [Mass fraction] 99 % Dr. Luis Caldera MD Work Phone: 9(173)475-032189 [place] [address] 10-12-2024 13:12-0400 Systolic blood pressure 117 mm[Hg] Dr. Luis Caldera MD Work Phone: 8(860)692-332289 [place] [address] 10-07-2023 14:18-0400 Body height 182.[address] Luis Caldera Work Phone: 0(142)947-408289 [place] [address] 10-07-2023 14:18-0400 Body mass index (BMI) [Ratio] 29.8 kg/m2 Dr. Luis Caldera Work Phone: 0(615)298-391389 [place] [address] 10-07-2023 14:18-0400 Body weight 99.[address] Luis Caldera Work Phone: 9(756)037-955889 [place] [address] 10-07-2023 14:18-0400 Diastolic blood pressure 66 mm[Hg] Dr. Luis Caldera Work Phone: 0(769)112-889089 [place] [address] 10-07-2023 14:18-0400 Heart rate 67 /min Dr. Luis Caldera Work Phone: 9(659)030-050889 [place] [address] 10-07-2023 14:18-0400 Respiratory rate 16 /min Dr. Luis Caldera Work Phone: 1(626)605-723489 [place] [address] 10-07-2023 14:18-0400 Systolic blood pressure 112 mm[Hg] Dr. Luis Caldera Work Phone: 2(709)312-384889 [place] [address] 06-03-2023 12:50-0500 Body temperature 97.2 [degF] Dr. Luis Caldera Work Phone: 3(605)298-093789 [place] [address] 06-03-2023 12:50-0500 Diastolic blood pressure 90 mm[Hg] Dr. Luis Caldera Work Phone: 9(087)811-797989 [place] [address] 06-03-2023 12:50-0500 Heart rate 85 /min Dr. Luis Caldera Work Phone: [facility] 06-03-2023 12:50-0500 Respiratory rate 16 /min Dr. Luis Caldera Work Phone: [facility] 06-03-2023 12:50-0500 SaO2% (BldA) [Mass fraction] 97 % Dr. Luis Caldera Work Phone: [facility] 06-03-2023 12:50-0500 Systolic blood pressure 134 mm[Hg] Dr. Luis Caldera Work Phone: 0(769)717-967353 [place] [address] 06-03-2023 11:45-0500 Body height 182.[address] Luis Caldera Work Phone: 1(933)160-217653 [place] [address] 06-03-2023 11:45-0500 Body mass index (BMI) [Ratio] 30.5 kg/m2 Dr. Luis Caldera Work Phone: 1(493)[phone] [address] [place] [address] 06-03-2023 11:45-0500 Body weight 102.[address] Luis Caldera Work Phone: 4(334)459-031553 [place] [address] 03-27-2023 13:51-0400 Body height 185.[address] Magyg Roberts Work Phone: [facility] 03-27-2023 13:51-0400 Body mass index (BMI) [Ratio] 34.7 kg/m2 Dr. Maggy Roberts Work Phone: [facility] 03-27-2023 13:51-0400 Body weight 119.[address] Maggy Roberts Work Phone: [facility] 03-27-2023 13:51-0400 Diastolic blood pressure 78 mm[Hg] Dr. Maggy Roberts Work Phone: [facility] 03-27-2023 13:51-0400 Heart rate 97 /min Dr. Maggy Roberts Work Phone: [facility] 03-27-2023 13:51-0400 Respiratory rate 18 /min Dr. Maggy Roberts Work Phone: [facility] 03-27-2023 13:51-0400 SaO2% (BldA) [Mass fraction] 98 % Dr. Maggy Roberts Work Phone: 8(122)715-426972 [place] [address] 03-27-2023 13:51-0400 Systolic blood pressure 118 mm[Hg] Dr. Maggy Roberts Work Phone: 9(615)044-520470 [address] 02-13-2023 15:02-0400 Body temperature 97 [degF] Dr. Maggy Roberts Work Phone: 5(851)535-886427 [place] [address] 02-13-2023 15:02-0400 Diastolic blood pressure 70 mm[Hg] Dr. Maggy Roberts Work Phone: 1(871)664-782827 [place] [address] 02-13-2023 15:02-0400 Heart rate 82 /min Dr. Maggy Roberts Work Phone: 6(061)197-355527 [place] [address] 02-13-2023 15:02-0400 Respiratory rate 16 /min Dr. Maggy Roberts Work Phone: 2(638)601-881027 [place] [address] 02-13-2023 15:02-0400 SaO2% (BldA) [Mass fraction] 100 % Dr. Maggy Roberts Work Phone: 9(996)395-409172 [place] [address] 02-13-2023 15:02-0400 Systolic blood pressure 134 mm[Hg] Dr. Maggy Roberts Work Phone: 8(057)984-563172 [place] [address] 02-12-2023 13:33-0400 Body height 185.[address] Maggy Roberts Work Phone: 0(773)423-712270 [address] 02-12-2023 13:33-0400 Body weight 102.[address] Maggy Roberts Work Phone: 3(693)960-860027 [place] [address] 02-11-2023 20:45-0400 Body mass index (BMI) [Ratio] 30 kg/m2 Dr. Maggy Roberts Work Phone: 5(879)095-268327 [place] [address] 02-11-2023 18:53-0400 Body temperature 99.1 [degF] Dr. Maggy Roberts Work Phone: 3(416)326-081572 [place] [address] 02-11-2023 18:53-0400 Diastolic blood pressure 71 mm[Hg] Dr. Maggy Roberts Work Phone: 5(900)043-407627 [place] [address] 02-11-2023 18:53-0400 Heart rate 88 /min Dr. Maggy Roberts Work Phone: 4(843)004-496927 [place] [address] 02-11-2023 18:53-0400 Respiratory rate 18 /min Dr. Maggy Roberts Work Phone: 9(215)883-114127 [place] [address] 02-11-2023 18:53-0400 SaO2% (BldA) [Mass fraction] 93 % Dr. Maggy Roberts Work Phone: 1(860)142-764427 [place] [address] 02-11-2023 18:53-0400 Systolic blood pressure 129 mm[Hg] Dr. Maggy Roberts Work Phone: 9(123)295-751727 [place] [address] 02-11-2023 16:21-0400 Body height 185.[address] Maggy Roberts Work Phone: 1(887)368-227527 [place] [address] 02-11-2023 00:58-0400 Body temperature 98.4 [degF] Dr. Maggy Roberts Work Phone: 0(332)929-967327 [place] [address] 02-11-2023 00:58-0400 Diastolic blood pressure 62 mm[Hg] Dr. Maggy Roberts Work Phone: 1(502)760-747272 [place] [address] 02-11-2023 00:58-0400 Heart rate 74 /min Dr. Maggy Roberts Work Phone: 1(367)199-283572 [place] [address] 02-11-2023 00:58-0400 Respiratory rate 26 /min Dr. Maggy Roberts Work Phone: 4(476)367-470927 [place] [address] 02-11-2023 00:58-0400 SaO2% (BldA) [Mass fraction] 95 % Dr. Maggy Roberts Work Phone: 0(394)823-957527 [place] [address] 02-11-2023 00:58-0400 Systolic blood pressure 124 mm[Hg] Dr. Maggy Roberts Work Phone: [facility] 02-10-2023 21:23-0400 Body height 185.[address] Maggy Roberts Work Phone: 5(169)663-398527 [place] [address] 02-10-2023 21:23-0400 Body mass index (BMI) [Ratio] 30.9 kg/m2 Dr. Maggy Roberts Work Phone: 3(367)880-028627 [place] [address] 02-10-2023 21:23-0400 Body weight 106.[address] Maggy Roberts Work Phone: 6(890)929-387427 [place] [address] 02-05-2023 15:10-0400 Body temperature 97.4 [degF] Dr. Maggy Roberts Work Phone: 4(372)191-539227 [place] [address] 02-05-2023 15:10-0400 Diastolic blood pressure 77 mm[Hg] Dr. Maggy Roberts Work Phone: 4(750)794-580027 [place] [address] 02-05-2023 15:10-0400 Heart rate 85 /min Dr. Maggy Roberts Work Phone: 4(484)808-743127 [place] [address] 02-05-2023 15:10-0400 Respiratory rate 18 /min Dr. Maggy Roberts Work Phone: 9(326)037-081327 [place] [address] 02-05-2023 15:10-0400 SaO2% (BldA) [Mass fraction] 94 % Dr. Maggy Roberts Work Phone: 5(181)224-971072 [place] [address] 02-05-2023 15:10-0400 Systolic blood pressure 131 mm[Hg] Dr. Maggy Roberts Work Phone: 9(617)080-265627 [place] [address] 02-05-2023 05:36-0400 Body mass index (BMI) [Ratio] 30.6 kg/m2 Dr. Maggy Roberts Work Phone: 9(172)597-368472 [place] [address] 02-05-2023 05:36-0400 Body weight 105.[address] Maggy Roberts Work Phone: 4(003)813-856772 [place] [address] 02-01-2023 00:17-0400 Inhaled oxygen flow rate 2 L/min Dr. Maggy Roberts Work Phone: [facility] 01-27-2023 21:04-0400 Body temperature 98.1 [degF] Dr. Maggy Roberts Work Phone: 4(971)802-111372 [place] [address] 01-27-2023 21:04-0400 Diastolic blood pressure 48 mm[Hg] Dr. Maggy Roberts Work Phone: 6(661)267-833772 [place] [address] 01-27-2023 21:04-0400 Heart rate 79 /min Dr. Maggy Roberts Work Phone: 3(999)871-690527 [place] [address] 01-27-2023 21:04-0400 Respiratory rate 16 /min Dr. Maggy Roberts Work Phone: 0(059)248-653827 [place] [address] 01-27-2023 21:04-0400 SaO2% (BldA) [Mass fraction] 94 % Dr. Maggy Roberts Work Phone: 8(738)234-464072 [place] [address] 01-27-2023 21:04-0400 Systolic blood pressure 111 mm[Hg] Dr. Maggy Roberts Work Phone: 4(198)264-218872 [place] [address] 01-27-2023 17:58-0400 Body height 185.[address] Maggy Roberts Work Phone: 6(596)631-567327 [place] [address] 01-27-2023 17:58-0400 Body mass index (BMI) [Ratio] 30.5 kg/m2 Dr. Maggy Roberts Work Phone: 0(047)096-174772 [place] [address] 01-27-2023 17:58-0400 Body weight [address] Maggy Roberts Work Phone: 1(448)123-603072 [place] [address] 01-26-2023 14:13-0400 Body temperature 98.6 [degF] Dr. Maggy Roberts Work Phone: 7(527)032-185772 [place] [address] 01-26-2023 14:13-0400 Diastolic blood pressure 46 mm[Hg] Dr. Maggy Roberts Work Phone: 3(938)334-155772 [place] [address] 01-26-2023 14:13-0400 Heart rate 60 /min Dr. Maggy Roberts Work Phone: [facility] 01-26-2023 14:13-0400 Respiratory rate 18 /min Dr. Maggy Roberts Work Phone: [facility] 01-26-2023 14:13-0400 SaO2% (BldA) [Mass fraction] 97 % Dr. Maggy Roberts Work Phone: [facility] 01-26-2023 14:13-0400 Systolic blood pressure 134 mm[Hg] Dr. Maggy Roberts Work Phone: 5(992)820-215072 [place] [address] 01-25-2023 05:27-0400 Body mass index (BMI) [Ratio] 28.2 kg/m2 Dr. Maggy Roberts Work Phone: 7(393)129-978872 [place] [address] 01-25-2023 05:27-0400 Body weight 96.[address] Maggy Roberts Work Phone: [facility] 01-24-2023 16:00-0400 Inhaled oxygen flow rate 93 L/min Dr. Maggy Roberts Work Phone: [facility] 01-23-2023 14:42-0400 Body height 185.[address] Maggy Roberts Work Phone: [facility] 01-21-2023 11:32-0400 Body temperature 97.8 [degF] Dr. Maggy Roberts Work Phone: [facility] 01-21-2023 11:32-0400 Diastolic blood pressure 55 mm[Hg] Dr. Maggy Roberts Work Phone: [facility] 01-21-2023 11:32-0400 Heart rate 83 /min Dr. Maggy Roberts Work Phone: [facility] 01-21-2023 11:32-0400 Respiratory rate 23 /min Dr. Maggy Roberts Work Phone: [facility] 01-21-2023 11:32-0400 SaO2% (BldA) [Mass fraction] 93 % Dr. Maggy Roberts Work Phone: 9(870)564-918672 [place] [address] 01-21-2023 11:32-0400 Systolic blood pressure 133 mm[Hg] Dr. Maggy Roberts Work Phone: 5(240)665-562027 [place] [address] 01-21-2023 08:21-0400 Body height 185.[address] Maggy Roberts Work Phone: 5(242)031-859627 [place] [address] 01-21-2023 08:21-0400 Body mass index (BMI) [Ratio] 28.9 kg/m2 Dr. Maggy Roberts Work Phone: 6(137)864-671927 [place] [address] 01-21-2023 08:21-0400 Body weight 99.[address] Maggy Roberts Work Phone: 7(907)974-759627 [place] [address] 01-08-2023 11:58-0400 Body temperature 98.3 [degF] Dr. Maggy Roberts Work Phone: 7(998)066-290727 [place] [address] 01-08-2023 11:58-0400 Diastolic blood pressure 70 mm[Hg] Dr. Maggy Roberts Work Phone: 9(782)163-576627 [place] [address] 01-08-2023 11:58-0400 Heart rate 60 /min Dr. Maggy Roberts Work Phone: 7(468)231-767127 [place] [address] 01-08-2023 11:58-0400 Respiratory rate 14 /min Dr. Maggy Roberts Work Phone: 4(826)473-366672 [place] [address] 01-08-2023 11:58-0400 SaO2% (BldA) [Mass fraction] 96 % Dr. Maggy Roberts Work Phone: 1(738)429-078527 [place] [address] 01-08-2023 11:58-0400 Systolic blood pressure 108 mm[Hg] Dr. Maggy Roberts Work Phone: 2(137)377-685327 [place] [address] 01-08-2023 06:00-0400 Body mass index (BMI) [Ratio] 38.4 kg/m2 Dr. Maggy Roberts Work Phone: [facility] 01-08-2023 06:00-0400 Body weight [address] Maggy Roberts Work Phone: [facility] 01-04-2023 17:25-0400 Diastolic blood pressure 63 mm[Hg] [facility] 01-04-2023 17:25-0400 Heart rate 63 /min [facility] 01-04-2023 17:25-0400 Respiratory rate 12 /min [facility] 01-04-2023 17:25-0400 SaO2% (BldA) [Mass fraction] 98 % [facility] 01-04-2023 17:25-0400 Systolic blood pressure 138 mm[Hg] [facility] 01-04-2023 16:19-0400 Body temperature 96.9 [degF] [facility] 01-04-2023 11:15-0400 Body mass index (BMI) [Ratio] 30.4 kg/m2 [facility] 01-04-2023 11:15-0400 Body weight 104.7 kg [facility] 01-04-2023 10:59-0400 Body height 185.42 cm [facility] 09-07-2022 11:01-0500 Body height 185.4 cm Jojo Kaur MD Work Phone: [facility] 09-07-2022 11:01-0500 Body weight 113.4 kg Jojo Kaur MD Work Phone: [facility] 09-07-2022 11:01-0500 Diastolic blood pressure 57 mm[Hg] Jojo Kaur MD Work Phone: [facility] 09-07-2022 11:01-0500 Heart rate 64 /min Jojo Kaur MD Work Phone: [facility] 09-07-2022 11:01-0500 Respiratory rate 16 /min Jooj Kaur MD Work Phone: [facility] 09-07-2022 11:01-0500 SaO2% (BldA) [Mass fraction] 99 % Jojo Kaur MD Work Phone: [facility] 09-07-2022 11:01-0500 Systolic blood pressure 124 mm[Hg] Jojo Kaur MD Work Phone: [facility] 08-09-2022 16:35-0500 Body weight 113.4 kg Abdulaziz Caldera MD Work Phone: [facility] 08-09-2022 16:35-0500 Diastolic blood pressure 62 mm[Hg] Abdulaziz Caldera MD Work Phone: [facility] 08-09-2022 16:35-0500 Heart rate 64 /min Abdulzaiz Caldera MD Work Phone: [facility] 08-09-2022 16:35-0500 Respiratory rate 16 /min Abdulaziz Caldera MD Work Phone: [facility] 08-09-2022 16:35-0500 SaO2% (BldA) [Mass fraction] 96 % Abdulaziz Caldera MD Work Phone: [facility] 08-09-2022 16:35-0500 Systolic blood pressure 112 mm[Hg] Abdulaziz Caldera MD Work Phone: [facility] 07-11-2022 16:22-0500 Body temperature 97.9 [degF] Dr. Luis Caldera Work Phone: [facility] Work Phone: 07-11-2022 16:22-0500 Diastolic blood pressure 65 mm[Hg] Dr. Luis Caldera Work Phone: [facility] Work Phone: 07-11-2022 16:22-0500 Heart rate 75 /min Dr. Luis Caldera Work Phone: [facility] Work Phone: 07-11-2022 16:22-0500 Respiratory rate 17 /min Dr. Luis Caldera Work Phone: [facility] Work Phone: 07-11-2022 16:22-0500 SaO2% (BldA) [Mass fraction] 96 % Dr. Luis Caldera Work Phone: [facility] Work Phone: 07-11-2022 16:22-0500 Systolic blood pressure 114 mm[Hg] Dr. Luis Caldera Work Phone: [facility] Work Phone: 07-11-2022 03:04-0500 Body weight 114.[address] Luis Caldera Work Phone: [facility] Work Phone: 07-10-2022 14:29-0500 Body height 185.[address] Luis Caldera Work Phone: [facility] Work Phone: 07-10-2022 03:04-0500 Body mass index (BMI) [Ratio] 33.6 kg/m2 Dr. Luis Caldera Work Phone: [facility] Work Phone: 07-09-2022 21:17-0500 Inhaled oxygen flow rate 97 L/min Dr. Luis Caldera Work Phone: [facility] Work Phone: 04-17-2022 11:23-0400 Body height 185.4 cm Jojo Kaur MD Work Phone: [facility] 04-17-2022 11:23-0400 Body weight 114.31 kg Jojo Kaur MD Work Phone: [facility] 04-17-2022 11:23-0400 Diastolic blood pressure 71 mm[Hg] Jojo Kaur MD Work Phone: [facility] 04-17-2022 11:23-0400 Heart rate 72 /min Jojo Kaur MD Work Phone: [facility] 04-17-2022 11:23-0400 Respiratory rate 18 /min Jojo Kaur MD Work Phone: [facility] 04-17-2022 11:23-0400 SaO2% (BldA) [Mass fraction] 98 % Jojo Kaur MD Work Phone: [facility] 04-17-2022 11:23-0400 Systolic blood pressure 116 mm[Hg] Jojo Kaur MD Work Phone: [facility] 04-16-2022 13:09-0400 Body height 185.4 cm Abdulaziz Caldera MD Work Phone: [facility] 04-16-2022 13:09-0400 Body weight 114.31 kg Abdulaziz Caldera MD Work Phone: [facility] 04-16-2022 13:09-0400 Diastolic blood pressure 72 mm[Hg] Abdulaziz Caldera MD Work Phone: [facility] 04-16-2022 13:09-0400 Heart rate 70 /min Abdulaziz Caldera MD Work Phone: [facility] 04-16-2022 13:09-0400 Respiratory rate 16 /min Abdulaziz Caldera MD Work Phone: [facility] 04-16-2022 13:09-0400 SaO2% (BldA) [Mass fraction] 98 % Abdulaziz Caldera MD Work Phone: [facility] 04-16-2022 13:09-0400 Systolic blood pressure 132 mm[Hg] Abdulaziz Caldera MD Work Phone: [facility] 04-06-2022 09:36-0400 Body weight 114.31 kg Roselia Raglandlogdavid APICULTURIST.[employer]PER[employer]OR [employer] Work Phone: [facility] 04-06-2022 09:36-0400 Diastolic blood pressure 62 mm[Hg] Roselia Podlogar APICULTURIST.SUPER[employer]OR [employer] Work Phone: [facility] 04-06-2022 09:36-0400 Heart rate 62 /min Roselia Podlogar APICULTURIST.SUPER[employer]OR [employer] Work Phone: [facility] 04-06-2022 09:36-0400 Respiratory rate 16 /min Roselia Podlogar APICULTURIST.SUPER[employer] Work Phone: [facility] 04-06-2022 09:36-0400 SaO2% (BldA) [Mass fraction] 97 % Roselia Podlogar APICULTURIST.SUPER[employer] Work Phone: [facility] 04-06-2022 09:36-0400 Systolic blood pressure 112 mm[Hg] Roselia Podlogar APICULTURIST.SUPER[employer] Work Phone: [facility] 03-07-2022 11:12-0400 Body weight 114.76 kg Abdulaziz Caldera MD Work Phone: [facility] 03-07-2022 11:12-0400 Diastolic blood pressure 70 mm[Hg] Abdulaziz Caldera MD Work Phone: [facility] 03-07-2022 11:12-0400 Heart rate 64 /min Abdulaziz Caldera MD Work Phone: [facility] 03-07-2022 11:12-0400 Respiratory rate 16 /min Abdulaziz Caldera MD Work Phone: [facility] 03-07-2022 11:12-0400 Systolic blood pressure 118 mm[Hg] Abdulaziz Caldera MD Work Phone: [facility] 03-05-2022 12:00-0400 Diastolic blood pressure 60 mm[Hg] David Poon PT [facility] 03-05-2022 12:00-0400 Systolic blood pressure 112 mm[Hg] David Poon PT [facility] 03-02-2022 19:48-0400 Diastolic blood pressure 79 mm[Hg] Dr. Luis Caldera Work Phone: [facility] Work Phone: 03-02-2022 19:48-0400 Heart rate 77 /min Dr. Luis Caldera Work Phone: [facility] Work Phone: 03-02-2022 19:48-0400 SaO2% (BldA) [Mass fraction] 97 % Dr. Luis Caldera Work Phone: [facility] Work Phone: 03-02-2022 19:48-0400 Systolic blood pressure 131 mm[Hg] Dr. Luis Caldera Work Phone: [facility] Work Phone: 03-02-2022 18:12-0400 Respiratory rate 17 /min Dr. Luis Caldera Work Phone: [facility] Work Phone: 03-02-2022 14:22-0400 Body height 185.[address] Luis Caldera Work Phone: [facility] Work Phone: 03-02-2022 14:22-0400 Body mass index (BMI) [Ratio] 32.3 kg/m2 Dr. Luis Caldera Work Phone: [facility] Work Phone: 03-02-2022 14:22-0400 Body temperature 98.9 [degF] Dr. Luis Caldera Work Phone: [facility] Work Phone: 03-02-2022 14:22-0400 Body weight 111.[address] Luis Caldera Work Phone: [facility] Work Phone: 01-12-2022 08:00-0400 Diastolic blood pressure 78 mm[Hg] David Lemon PT [facility] 01-12-2022 08:00-0400 Systolic blood pressure 130 mm[Hg] David Lemon PT [facility] 01-05-2022 09:56-0400 Body height 185.4 cm Jojo Kaur MD Work Phone: [facility] 01-05-2022 09:56-0400 Body weight 111.58 kg Jojo Kaur MD Work Phone: [facility] 01-05-2022 09:56-0400 Diastolic blood pressure 62 mm[Hg] Jojo Kaur MD Work Phone: [facility] 01-05-2022 09:56-0400 Heart rate 58 /min Jojo Kaur MD Work Phone: [facility] 01-05-2022 09:56-0400 Respiratory rate 16 /min Jojo Kaur MD Work Phone: [facility] 01-05-2022 09:56-0400 SaO2% (BldA) [Mass fraction] 97 % Jojo Kaur MD Work Phone: [facility] 01-05-2022 09:56-0400 Systolic blood pressure 117 mm[Hg] Jojo Kaur MD Work Phone: [facility] 01-01-2022 10:12-0400 Body temperature 97.39 [degF] Abdulaziz Caldera MD Work Phone: [facility] 01-01-2022 10:12-0400 Body weight 111.77 kg Abdulaziz Caldera MD Work Phone: [facility] 01-01-2022 10:12-0400 Diastolic blood pressure 64 mm[Hg] Abdulaziz Caldera MD Work Phone: [facility] 01-01-2022 10:12-0400 Heart rate 47 /min Abdulaziz Caldera MD Work Phone: [facility] 01-01-2022 10:12-0400 Respiratory rate 18 /min Abdulaziz Caldera MD Work Phone: [facility] 01-01-2022 10:12-0400 SaO2% (BldA) [Mass fraction] 98 % Abdulaziz Caldera MD Work Phone: [facility] 01-01-2022 10:12-0400 Systolic blood pressure 112 mm[Hg] Abdulaziz Caldera MD Work Phone: [facility] 01-01-2022 08:55-0400 Body weight 112.49 kg Justina Monique APRN.CNP Work Phone: [facility] 01-01-2022 08:55-0400 Diastolic blood pressure 74 mm[Hg] Justina Monique APRN.SUPER[employer]OR [employer] Work Phone: [facility] 01-01-2022 08:55-0400 Heart rate 60 /min Justina Monique APICULTURIST.SUPER[employer] Work Phone: [facility] 01-01-2022 08:55-0400 Respiratory rate 18 /min Justinajoelle Monique APICULTURIST.SUPER[employer] Work Phone: [facility] 01-01-2022 08:55-0400 Systolic blood pressure 147 mm[Hg] Justinajoelle Monique APICULTURIST.SUPER[employer] Work Phone: [facility] 12-29-2021 08:54-0400 Heart rate 69 /min Dr. Luis Caldera Work Phone: [facility] Work Phone: 12-29-2021 08:50-0400 Body temperature 97.7 [degF] Dr. Luis Caldera Work Phone: [facility] Work Phone: 12-29-2021 08:50-0400 Diastolic blood pressure 68 mm[Hg] Dr. Luis Caldera Work Phone: [facility] Work Phone: 12-29-2021 08:50-0400 Respiratory rate 18 /min Dr. Luis Caldera Work Phone: [facility] Work Phone: 12-29-2021 08:50-0400 SaO2% (BldA) [Mass fraction] 96 % Dr. Luis Caldera Work Phone: [facility] Work Phone: 12-29-2021 08:50-0400 Systolic blood pressure 139 mm[Hg] Dr. Luis Caldera Work Phone: [facility] Work Phone: 12-27-2021 22:36-0400 Body height 185.[address] Luis Caldera Work Phone: [facility] Work Phone: 12-27-2021 22:36-0400 Body mass index (BMI) [Ratio] 32.8 kg/m2 Dr. Luis Caldera Work Phone: [facility] Work Phone: 12-27-2021 22:36-0400 Body weight 112.[address] Luis Caldera Work Phone: [facility] Work Phone: 12-27-2021 21:22-0400 Diastolic blood pressure 71 mm[Hg] DR MELANIA WORKMAN MD [facility] 12-27-2021 21:22-0400 Heart rate 73 /min DR MELANIA WORKMAN MD [facility] 12-27-2021 21:22-0400 Respiratory rate 24 /min DR MELANIA WORKMAN MD [facility] 12-27-2021 21:22-0400 Systolic blood pressure 121 mm[Hg] DR MELANIA WORKMAN MD [facility] 12-27-2021 20:06-0400 Diastolic blood pressure 59 mm[Hg] DR MELANIA WORKMAN MD [facility] 12-27-2021 20:06-0400 Heart rate 80 /min DR MELANIA WORKMAN MD [facility] 12-27-2021 20:06-0400 Respiratory rate 26 /min DR MELANIA WORKMAN MD [facility] 12-27-2021 20:06-0400 Systolic blood pressure 112 mm[Hg] DR MELANIA WORKMAN MD [facility] 12-27-2021 19:19-0400 Body temperature 98.6 [degF] DR MELANIA WORKMAN MD [facility] 12-27-2021 19:19-0400 Diastolic blood pressure 76 mm[Hg] DR MELANIA WORKMAN MD [facility] 12-27-2021 19:19-0400 Heart rate 82 /min DR MELANIA WORKMAN MD [facility] 12-27-2021 19:19-0400 Respiratory rate 26 /min DR MELANIA WORKMAN MD [facility] 12-27-2021 19:19-0400 Systolic blood pressure 138 mm[Hg] DR MELANIA WORKMAN MD [facility] 12-27-2021 17:36-0400 Body temperature 102.56 [degF] DR MELANIA WORKMAN MD [facility] 12-27-2021 17:36-0400 Body weight [address] MELANIA WORKMAN MD [facility] 12-27-2021 17:36-0400 Heart rate 104 /min DR MELANIA WORKMAN MD [facility] 12-14-2021 15:10-0400 Body temperature 98.2 [degF] Abdulaziz Caldera MD Work Phone: [facility] 12-14-2021 15:10-0400 Body weight 110.77 kg Abdulaziz Caldera MD Work Phone: [facility] 12-14-2021 15:10-0400 Diastolic blood pressure 70 mm[Hg] Abdulaziz Caldera MD Work Phone: [facility] 12-14-2021 15:10-0400 Heart rate 54 /min Abdulaziz Caldera MD Work Phone: [facility] 12-14-2021 15:10-0400 Respiratory rate 16 /min Abdulaziz Caldera MD Work Phone: [facility] 12-14-2021 15:10-0400 SaO2% (BldA) [Mass fraction] 96 % Abdulaziz Caldera MD Work Phone: [facility] 12-14-2021 15:10-0400 Systolic blood pressure 130 mm[Hg] Abdulaziz Caldera MD Work Phone: [facility] 12-08-2021 16:23-0400 Diastolic blood pressure 64 mm[Hg] Abdulaziz Caldera MD Work Phone: [facility] 12-08-2021 16:23-0400 Heart rate 85 /min Abdulaziz Caldera MD Work Phone: [facility] 12-08-2021 16:23-0400 Systolic blood pressure 110 mm[Hg] Abdulaziz Caldera MD Work Phone: [facility] 12-07-2021 00:58-0400 SaO2% (BldA) [Mass fraction] 97 % [facility] Work Phone: 12-06-2021 22:59-0400 Body height 185.42 cm [facility] Work Phone: 12-06-2021 22:59-0400 Body mass index (BMI) [Ratio] 33.6 kg/m2 [facility] Work Phone: 12-06-2021 22:59-0400 Body temperature 97.7 [degF] [facility] Work Phone: 12-06-2021 22:59-0400 Body weight 115.66 kg [facility] Work Phone: 12-06-2021 22:59-0400 Diastolic blood pressure 78 mm[Hg] [facility] Work Phone: 12-06-2021 22:59-0400 Heart rate 90 /min [facility] Work Phone: 12-06-2021 22:59-0400 Respiratory rate 16 /min [facility] Work Phone: 12-06-2021 22:59-0400 Systolic blood pressure 149 mm[Hg] [facility] Work Phone: 10-23-2021 13:05-0400 Body temperature 97.3 [degF] Marcella Xavier PA-C Work Phone: [facility] 10-23-2021 13:05-0400 Body weight 114.58 kg Marcella Xavier PA-C Work Phone: [facility] 10-23-2021 13:05-0400 Diastolic blood pressure 56 mm[Hg] Marcella Christopher PA-C Work Phone: [facility] 10-23-2021 13:05-0400 Heart rate 85 /min Marcella Christopher PA-C Work Phone: [facility] 10-23-2021 13:05-0400 SaO2% (BldA) [Mass fraction] 98 % Marcella Christopher PA-C Work Phone: [facility] 10-23-2021 13:05-0400 Systolic blood pressure 132 mm[Hg] Marcella Xavier PA-C Work Phone: [facility] 10-10-2021 10:07-0400 Diastolic blood pressure 68 mm[Hg] Richard Jones MD Work Phone: [facility] 10-10-2021 10:07-0400 Heart rate 69 /min Richard Jones MD Work Phone: [facility] 10-10-2021 10:07-0400 Respiratory rate 16 /min Richard Jones MD Work Phone: [facility] 10-10-2021 10:07-0400 SaO2% (BldA) [Mass fraction] 98 % Richard Jones MD Work Phone: [facility] 10-10-2021 10:07-0400 Systolic blood pressure 150 mm[Hg] Richard Jones MD Work Phone: [facility] 10-10-2021 08:01-0400 Body temperature 97 [degF] Richard Jones MD Work Phone: [facility] Encounters Encounter Date Encounter Type Care Provider Facility Start: 02-25-2025 ambulatory Kuldip Primghar Facility:[facility] Start: 02-22-2025 ambulatory [facility] Start: 02-18-2025 ambulatory [facility] Facility:[facility] Start: 02-17-2025 ambulatory [facility] Facility:[facility] Start: 02-16-2025 ambulatory [facility] Start: 02-15-2025 ambulatory [facility] Facility:[facility] Start: 02-11-2025 Dr. Hugo Cervantes MD -[facility] Work Phone: Start: 02-10-2025 Dr. Aneesh Ac MD -[facility] Start: 02-10-2025 Dr. Hugo Cervantes MD -[facility] Work Phone: Start: 02-10-2025 End: 02-10-2025 ambulatory Kuldip Primghar Facility:[facility] Start: 02-09-2025 Dr. Aneesh Ac MD -[facility] Start: 02-09-2025 Dr. Hugo Cervantes MD -[facility] Work Phone: Start: 02-08-2025 Dr. Hugo Cervantes MD -[facility] Work Phone: Start: 02-07-2025 Dr. Hugo Cervantes MD -[facility] Work Phone: Start: 02-06-2025 Dr. Hugo Cervantes MD -[facility] Work Phone: Start: 02-05-2025 Dr. Hugo Cervantes MD -[facility] Work Phone: Start: 02-04-2025 Dr. Hugo Cervantes MD -[facility] Work Phone: Start: 02-04-2025 Meghana LOZA -[facility] Start: 02-03-2025 ambulatory [facility] Start: 02-03-2025 Dr. Aneesh Ac MD -[facility] Start: 02-03-2025 Dr. Hugo Cervantes MD -[facility] Work Phone: Start: 02-02-2025 ambulatory Kuldip Harjeet [facility] Start: 02-02-2025 End: 02-11-2025 Evaluation and management of inpatient Dr. Karen Aly MD -[facility] Work Phone: Start: 02-02-2025 End: 02-11-2025 Dr. Hugo Cervantes MD -[facility] Work Phone: Start: 12-22-2024 ambulatory Luis Verenice Faci lity:[facility] Start: 12-22-2024 [facility] Start: 12-22-2024 [facility] Start: 12-16-2024 ambulatory Luis Peaceley Faci lity:[facility] Start: 12-16-2024 [facility] Start: 12-16-2024 Walter Deperro [facility] Start: 11-24-2024 ambulatory Luis Caldera Faci lity:[facility] Start: 11-24-2024 Registered Referred Walter Becker [facility] Start: 11-24-2024 [facility] Start: 10-12-2024 End: 10-12-[address] Olga Lidia Rasheed MD -[facility] Work Phone: Start: 10-12-2024 End: 10-12-2024 ambulatory Luis Caldera Facility:[facility] Start: 10-05-2024 End: 10-05-[address] Luis Caldera MD Work Phone: [facility] Work Phone: Start: 10-05-2024 End: 10-05-2024 [facility]ed [facility] Start: 10-05-2024 [facility]istered [facility] Start: 10-05-2024 End: 10-05-2024 ambulatory Luis Caldera Facility:[facility] Start: 09-29-2024 End: 09-29-[address] Luis Caldera MD Work Phone: [facility] Work Phone: Start: 09-29-2024 End: 09-29-2024 [facility] Start: 09-29-2024 End: 09-29-2024 ambulatory Luis Caldera Facility:[facility] Start: 08-04-2024 End: 08-04-2024 [facility] Start: 08-04-2024 End: 08-04-2024 ambulatory Luisjonas Caldera Facility:[facility] Start: 07-27-2024 End: 07-27-2024 [facility]ed [facility] Start: 07-27-2024 End: 07-27-2024 ambulatory Luis Caldera Facility:[facility] Start: 07-07-2024 End: 07-07-2024 Departed Referred Walter Becker MD [facility] Start: 07-07-2024 End: 07-07-2024 ambulatory Walter MAYORGA Facility:[facility] Start: 07-01-2024 ambulatory Luis Verenice Faci lity:[facility] Start: 07-01-2024 Registered Referred Walter Becker MD [facility] Start: 06-01-2024 End: 06-01-2024 ambulatory Luis Peaceley Facility:[facility] Start: 04-14-2024 End: 04-14-2024 ambulatory Luis Peaceley Facility:[facility] Start: 04-10-2024 End: 04-10-2024 ambulatory Luis Peaceley Facility:[facility] Start: 04-09-2024 End: 04-09-2024 ambulatory Luis Verenice Facility:[facility] Start: 04-07-2024 End: 04-08-2024 ambulatory Luis Peaceley Facility:[facility] Start: 03-02-2024 ambulatory Luis Veernice Faci lity:[facility] Start: 10-25-[address] Adam Caldera Work Phone: [facility] Start: 10-16-2023 End: 10-16-[address] Luis Caldera Work Phone: [facility] Work Phone: Start: 10-16-2023 End: 10-16-[address] Luis Caldera Work Phone: [facility] Start: 10-16-[address] Adam Caldera Work Phone: [facility] Start: 10-08-2023 End: 10-08-[address] Luis Caldera Work Phone: [facility] Work Phone: Start: 10-08-2023 End: 10-08-[address] Luis Caldera Work Phone: [facility] Start: 10-08-[address] Adam Caldera Work Phone: [facility] Start: 10-07-2023 End: 10-07-[address] Luis Caldera Work Phone: [facility] Work Phone: Start: 10-04-2023 End: 10-04-[address] Luis Caldera Work Phone: [facility] Work Phone: Start: 10-04-2023 End: 10-04-[address] Luis Caldera Work Phone: [facility] Start: 10-01-2023 End: 10-01-[address] Luis Caldera Work Phone: [facility] Work Phone: Start: 10-01-2023 End: 10-01-[address] Luis Caldera Work Phone: [facility] Start: 10-01-2023 Registered Referred [facility] Start: 09-25-2023 End: 09-25-2023 ambulatory [facility] Work Phone: Start: 09-25-2023 End: 09-25-2023 Departed Referred [facility] Start: 09-18-2023 End: 09-18-2023 ambulatory [facility] Work Phone: Start: 09-18-2023 End: 09-18-2023 Departed Referred [facility] Start: 09-18-2023 Registered Referred [facility] Start: 09-13-2023 End: 09-13-2023 ambulatory [facility] Work Phone: Start: 09-13-2023 End: 09-13-2023 Departed Referred [facility] Start: 09-13-2023 Registered Referred [facility] Start: 09-12-2023 End: 09-12-2023 ambulatory [facility] Work Phone: Start: 09-12-2023 End: 09-12-2023 Departed Referred [facility] Start: 09-12-2023 Registered Referred [facility] Start: 09-09-2023 End: 09-09-2023 ambulatory [facility] Work Phone: Start: 09-09-2023 End: 09-09-2023 Departed Referred [facility] Start: 09-09-2023 Registered Referred [facility] Start: 08-26-2023 End: 08-26-2023 ambulatory [facility] Work Phone: Start: 08-26-2023 End: 08-26-2023 Departed Referred [facility] Start: 08-26-2023 Registered Referred [facility] Start: 08-19-2023 End: 08-19-2023 ambulatory [facility] Work Phone: Start: 08-19-2023 End: 08-19-2023 Departed Referred [facility] Start: 08-19-2023 Registered Referred [facility] Start: 08-12-2023 End: 08-12-2023 ambulatory [facility] Work Phone: Start: 08-12-2023 End: 08-12-2023 Departed Referred [facility] Start: 08-12-2023 Registered Referred [facility] Start: 08-05-2023 End: 08-05-2023 ambulatory [facility] Work Phone: Start: 08-05-2023 End: 08-05-2023 Departed Referred [facility] Start: 08-05-2023 Registered Referred [facility] Start: 07-29-2023 End: 07-29-2023 ambulatory [facility] Work Phone: Start: 07-29-2023 End: 07-29-2023 [facility] Start: 07-22-2023 End: 07-22-2023 ambulatory [facility] Work Phone: Start: 07-22-2023 End: 07-22-2023 [facility]ed Referred [facility] Start: 07-22-[address] Adam Caldera Work Phone: [facility] Start: 07-19-2023 End: 07-19-2023 ambulatory [facility] Work Phone: Start: 07-19-2023 End: 07-19-2023 Departed Referred [facility] Start: 07-19-[address] Adam Caldera Work Phone: [facility] Start: 07-17-2023 End: 07-17-2023 ambulatory [facility] Work Phone: Start: 07-17-2023 End: 07-17-2023 Departed Referred [facility] Start: 07-17-[address] Adam Caldera Work Phone: [facility] Start: 07-10-2023 End: 07-10-[address] Luis Caldera Work Phone: [facility] Work Phone: Start: 07-10-2023 End: 07-10-[address] Luis Caldera Work Phone: [facility] Start: 07-03-2023 End: 07-03-[address] Luis Caldera Work Phone: [facility] Work Phone: Start: 07-03-2023 End: 07-03-[address] Luis Caldera Work Phone: [facility] Start: 07-03-[address] Adam Caldera Work Phone: [facility] Start: 06-26-2023 End: 06-26-[address] Luis Caldera Work Phone: [facility] Work Phone: Start: 06-26-2023 End: 06-26-[address] Luis Caldera Work Phone: [facility] Start: 06-26-[address] Adam Caldera Work Phone: [facility] Start: 06-25-2023 End: 06-25-[address] Luis Caldera Work Phone: [facility] Work Phone: Start: 06-25-2023 End: 06-25-[address] Luis Caldera Work Phone: [facility] Start: 06-25-[address] Adam Caldera Work Phone: [facility] Start: 06-24-2023 End: 06-24-[address] Luis Caldera Work Phone: [facility] Work Phone: Start: 06-24-2023 End: 06-24-[address] Luis Caldera Work Phone: [facility] Start: 06-24-[address] Adam Caldera Work Phone: [facility] Start: 06-17-2023 End: 06-17-[address] Luis Caldera Work Phone: [facility] Work Phone: Start: 06-17-2023 End: 06-17-[address] Luis Caldera Work Phone: [facility] Start: 06-10-2023 End: 06-10-[address] Luis Caldera Work Phone: [facility] Work Phone: Start: 06-10-2023 End: 06-10-[address] Luis Caldera Work Phone: [facility] Start: 06-10-[address] Adam Caldera Work Phone: [facility] Start: 06-03-2023 End: 06-03-2023 Admission to same day surgery center Dr. Luis Caldera Work Phone: [facility] Start: 06-03-2023 End: 06-03-[address] Luis Caldera Work Phone: [facility] Work Phone: Start: 06-03-2023 End: 06-03-2023 Dr. Luis Caldera Work Phone: [facility] Start: 05-20-2023 End: 05-20-[address] Luis Caldera Work Phone: [facility] Work Phone: Start: 05-20-2023 End: 05-20-[address] Luis Caldera Work Phone: [facility] Start: 05-20-2023 End: 05-20-2023 Dr. Luis Caldera Work Phone: [facility] Start: 05-15-2023 End: 05-15-[address] Luis Caldera Work Phone: [facility] Work Phone: Start: 05-15-2023 End: 05-15-[address] Luis Caldera Work Phone: [facility] Start: 05-15-2023 End: 05-15-2023 Dr. Luis Caldera Work Phone: [facility] Start: 05-06-2023 End: 05-06-[address] Luis Caldera Work Phone: [facility] Work Phone: Start: 05-06-2023 End: 05-06-[address] Luis Caldera Work Phone: [facility] Start: 05-06-2023 End: 05-06-2023 Dr. Luis Caldera Work Phone: [facility] Start: 04-29-2023 End: 04-29-[address] Maggy Roberts Work Phone: [facility] Work Phone: Start: 04-29-2023 End: 04-29-[address] Luis Caldera Work Phone: [facility] Start: 04-29-2023 End: 04-29-2023 Dr. [facility] Start: 04-15-2023 End: 04-15-[address] [facility] Calder[facility] Start: 04-15-2023 End: 04-15-2023 Dr. Maggy Roberts [facility] Start: 04-09-2023 End: 04-09-[address] Maggy Roberts Work Phone: [facility] Work Phone: Start: 04-09-2023 End: 04-09-[address] Luis Caldera Work Phone: [facility] Start: 04-09-2023 End: 04-09-2023 Dr. Maggy Roberts [facility] Start: 04-08-2023 End: 04-08-[address] Luis Caldera [facility] Start: 04-08-2023 End: 04-08-2023 Dr. Maggy Roberts [facility] Start: 04-01-2023 End: 04-01-[address] Maggy Roberts Work Phone: [facility] Work Phone: Start: 04-01-2023 End: 04-01-[address] Luis Caldera Work Phone: [facility] Start: 04-01-2023 End: 04-01-2023 Dr. Maggy Roberts Work Phone: [facility] Start: 03-27-2023 End: 03-27-[address] Luis Caldera Work Phone: [facility] Work Phone: Start: 03-27-2023 End: 03-27-2023 Dr. Maggy Roberts Work Phone: [facility] Work Phone: Start: 03-25-2023 End: 03-25-[address] Maggy Roberts Work Phone: [facility] Work Phone: Start: 03-25-2023 End: 03-25-[address] Luis Caldera Work Phone: [facility] Start: 03-25-2023 End: 03-25-2023 Dr. Maggy Roberts Work Phone: [facility] Start: 03-11-2023 End: 03-11-[address] Maggy Roberts Work Phone: [facility] Work Phone: Start: 03-11-2023 End: 03-11-[address] Luis Caldera Work Phone: [facility] Start: 03-11-2023 End: 03-11-2023 Dr. Maggy Roberts Work Phone: [facility] Start: 03-04-[address] Adam Caldera Work Phone: [facility] Start: 03-04-2023 Dr. Maggy benavides Work Phone: [facility] Start: 03-01-[address] Adam Caldera Work Phone: [facility] Start: 03-01-2023 Dr. Maggy Bonilla line Work Phone[facility] Start: 02-25-[address] Adam Caldera Work Phone: [facility] Start: 02-25-2023 Dr. Maggy Bonilla line [facility] Phone[facility] Start: 02-22-[address] Adam Caldera [facility] Phone[facility] Start: 02-22-2023 Dr. Maggy Bonilla line Work Phone: [facility] Start: 02-20-2023 Dr. Maggy Bonilla line Work Phone: [facility] Start: 02-18-2023 End: 02-18-2023 Dr. Maggy Roberts Work Phone: [facility] Work Phone: Start: 02-14-2023 Dr. Maggy Bonilla line Work Phone: [facility] Start: 02-13-2023 Dr. Maggy Bonilla line Work Phone: [facility] Work Phone: Start: 02-12-2023 Dr. Maggy Bonilla line Work Phone: [facility] Work Phone: Start: 02-12-2023 Dr. Maggy Bonilla line Work Phone: [facility] Start: 02-11-2023 End: 02-13-2023 Evaluation and management of inpatient Dr. Maggy Roberts Work Phone: [facility] Work Phone: Start: 02-11-2023 End: 02-13-2023 Dr. Maggy Roberts Work Phone: [facility] [facility] Work Phone: Start: 02-10-2023 End: 02-11-2023 Emergency department patient visit Dr. Maggy Roberts Work Phone: [facility] Work Phone: Start: 02-10-2023 End: 02-11-2023 Dr. Maggy Roberts Work Phone: [facility]-Emergency Department Work Phone: Start: 02-07-2023 Dr. Maggy Bonilla line Work Phone: [facility] Start: 02-05-2023 Dr. Maggy Bonilla line Work Phone: [facility] Work Phone: Start: 02-05-2023 End: 02-05-2023 Dr. Maggy Roberts Work Phone: [facility] Work Phone: Start: 02-04-2023 Dr. Maggy Bonilla line Work Phone: [facility] Work Phone: Start: 02-03-2023 End: 02-05-2023 Dr. Maggy Roberts Work Phone: [facility] Work Phone: Start: 02-02-2023 Dr. Maggy Bonilla line Work Phone: [facility] Work Phone: Start: 02-01-2023 Dr. Maggy Bonilla line Work Phone: [facility] Start: 02-01-2023 Dr. Maggy Bonilla line Work Phone: [facility] Work Phone: Start: 01-31-2023 Dr. Maggy Bonilla line Work Phone: [facility] Start: 01-31-2023 Dr. Maggy Bonilla line Work Phone: [facility] Work Phone: Start: 01-30-2023 Dr. Maggy Bonilla line Work Phone: [facility] Start: 01-30-2023 Dr. Maggy Bonilla line Work Phone: [facility] Start: 01-29-2023 Dr. Maggy Bonilla line Work Phone: [facility] Work Phone: Start: 01-29-2023 Dr. Maggy Bonilla line Work Phone: [facility] Start: 01-28-2023 Telephone encounter Luis Caldera MD Work Phone: [facility] Comment on above: Immunizations Start: 01-28-2023 Dr. Maggy Bonilla line Work Phone: [facility] Work Phone: Start: 01-28-2023 End: 01-28-2023 Dr. Maggy Roberts Work Phone: [facility] Work Phone: Start: 01-27-2023 Evaluation and management of inpatient Dr. Maggy Roberts Work Phone: [facility] Work Phone: Start: 01-27-2023 End: 02-05-2023 [facility] Start: 01-26-2023 Non-patient / Non-visit Dr. Eddie Roberts Work Phone: [facility] Start: 01-26-2023 Dr. Maggy Bonilla line Work Phone: [facility] Start: 01-26-2023 Non-patient / Non-visit Dr. Eddie Roberts Work Phone: [facility] Work Phone: Start: 01-26-2023 Dr. Maggy Bonilla line Work Phone: [facility] Work Phone: Start: 01-25-2023 Non-patient / Non-visit Dr. Eddie Roberts Work Phone: [facility] Start: 01-25-2023 Dr. Maggy Bonilla line Work Phone: [facility] Start: 01-25-2023 Non-patient / Non-visit Dr. Eddie Roberts Work Phone: [facility] Work Phone: Start: 01-25-2023 Dr. Maggy Bonilla line Work Phone: [facility] Work Phone: Start: 01-24-2023 Non-patient / Non-visit Dr. Eddie Roberts Work Phone: [facility] Start: 01-24-2023 Dr. Maggy Bonilla line Work Phone: [facility] Start: 01-24-2023 Telephone encounter Luis Caldera MD Work Phone: [facility] [place] Comment on above: Patient Update Start: 01-24-2023 Non-patient / Non-visit Dr. Eddie Roberts Work Phone: [facility] Start: 01-24-2023 Dr. Maggy Bonilla line Work Phone: [facility] Start: 01-24-2023 Non-patient / Non-visit Dr. Eddie Roberts Work Phone: [facility] Work Phone: Start: 01-24-2023 End: 01-24-2023 Dr. Maggy Roberts Work Phone: [facility] Work Phone: Start: 01-23-2023 Non-patient / Non-visit Dr. Eddie Roberts Work Phone: [facility] Start: 01-23-2023 Dr. Maggy Bonilla line Work Phone: [facility] Start: 01-23-2023 Non-patient / Non-visit Dr. Eddie Roberts Work Phone: [facility] Start: 01-23-2023 Dr. Maggy Bonilla line Work Phone: [facility] Start: 01-22-2023 Non-patient / Non-visit Dr. Eddie Roberts Work Phone: [facility] Start: 01-22-2023 Dr. Maggy Bonilla line Work Phone: [facility] Start: 01-22-2023 Non-patient / Non-visit Dr. Eddie Roberts Work Phone: [facility] Start: 01-22-2023 Dr. Maggy Bonilla line Work Phone: [facility] Start: 01-22-2023 Non-patient / Non-visit Dr. Eddie Roberts Work Phone: [facility] Work Phone: Start: 01-22-2023 Dr. Maggy Bonilla line Work Phone: [facility] Work Phone: Start: 01-21-2023 End: 01-21-2023 Dr. Maggy Roberts Work Phone: [facility] Work Phone: Start: 01-21-2023 Non-patient / Non-visit Dr. Eddie Roberts Work Phone: [facility] Start: 01-21-2023 Dr. Maggy Bonilla line Work Phone: [facility] Start: 01-21-2023 Non-patient / Non-visit Dr. Eddie Roberts Work Phone: [facility] Work Phone: Start: 01-21-2023 Dr. Maggy Bonilla line Work Phone: [facility] Work Phone: Start: 01-21-2023 End: 01-26-2023 Evaluation and management of inpatient Dr. Maggy Roberts Work Phone: [facility]-Int[facility] Work Phone: Start: 01-21-2023 End: 01-26-2023 Dr. Maggy Roberts Work Phone: [facility] Work Phone: Start: 01-08-2023 Non-patient / Non-visit Dr. Eddie Roberts Work Phone: [facility] Work Phone: Start: 01-08-2023 Dr. Maggy Bonilla line Work Phone: [facility] Work Phone: Start: 01-07-2023 Non-patient / Non-visit Dr. Eddie Roberts Work Phone: [facility] Work Phone: Start: 01-07-2023 Dr. Maggy Bonilla line Work Phone: [facility] Work Phone: Start: 01-06-2023 Non-patient / Non-visit Dr. Eddie Roberts Work Phone: [facility] Work Phone: Start: 01-06-2023 Dr. Maggy Bonilla line Work Phone: [facility] Work Phone: Start: 01-05-2023 End: 01-08-2023 Evaluation and management of inpatient Dr. Maggy Roberts Work Phone: [facility] Work Phone: Start: 01-05-2023 End: 01-08-2023 Dr. Mag[facility] Start: 01-05-2023 Non-patient / Non-visit Dr. Eddie Roberts Work Phone: [facility] Work Phone: Start: 01-05-2023 Dr. Maggy Bonilla line Work Phone: [facility] Work Phone: Start: 01-04-2023 [facility] Start: 01-04-2023 Non-patient / Non-visit Dr. Eddie Roberts Work Phone: [facility] Work Phone: Start: 01-04-2023 observation encounter [facility] Work Phone: Start: 01-04-2023 Dr. Maggy benavides Work Phone: [facility] Work Phone: Start: 01-04-2023 Telephone encounter Luis Caldera MD Work Phone: [facility] Comment on above: Appointment Start: 01-03-2023 Telephone encounter Luis Caldera MD Work Phone: [facility] Comment on above: Appointment; Patient Update Start: 01-03-2023 End: 01-03-2023 ambulatory Justina O'Rafa PT [facility] Comment on above: Spinal stenosis, lum bar region, without neurogenic claudication (Primary Dx); Primary osteoarthritis of both knees Start: 12-31-2022 End: 12-31-2022 ambulatory Ira Kashuba [employer] Work Phone: [facility] Comment on above: Spinal stenosis, lum bar region, without neurogenic claudication (Primary Dx); Primary osteoarthritis of both knees Start: 12-27-2022 End: 12-27-2022 ambulatory Ira Kashuba [employer] Work Phone: [facility] Comment on above: Spinal stenosis, lum bar region, without neurogenic claudication (Primary Dx); Primary osteoarthritis of both knees Start: 12-24-2022 End: 12-24-2022 ambulatory Justina O'Rafa PT [facility] Comment on above: Spinal stenosis, lum bar region, without neurogenic claudication (Primary Dx); Primary osteoarthritis of both knees Start: 12-17-2022 End: 12-17-2022 ambulatory Justina O'Rafa PT [facility] Comment on above: Spinal stenosis, lum bar region, without neurogenic claudication (Primary Dx); Primary osteoarthritis of both knees Start: 12-14-2022 End: 12-14-2022 ambulatory Justina O'Rafa PT [facility] Comment on above: Spinal stenosis, lum bar region, without neurogenic claudication (Primary Dx); Primary osteoarthritis of both knees Start: 12-12-2022 End: 12-12-2022 ambulatory Justina O'Rafa PT [place] [facility] Physical Therapy Comment on above: Spinal stenosis, lum bar region, without neurogenic claudication (Primary Dx); Primary osteoarthritis of both knees Start: 11-20-2022 Refill Abdulaziz Caldera MD Work Phone: [facility] [place] Comment on above: Refill Request Start: 11-19-2022 Telephone encounter Valencia Pascual MA [facility] [place] Comment on above: Anticoagulation Start: 10-22-2022 End: 10-22-2022 Patient encounter procedure Zachary Sawantanny Work Phone: Podiatry Comment on above: Onychomycosis (Prima ry Dx); Pain in toe of left foot; Amputated toe of right foot (HCC); Diabetic polyneuropathy associated with type 2 diabetes mellitus (HCC) Start: 09-25-2022 Telephone encounter Luis Caldera MD Work Phone: [facility] Comment on above: Anticoagulation Start: 09-07-2022 Telephone encounter Jojo galan MD Work Phone: Neurology Comment on above: Appointment Start: 09-07-2022 End: 09-07-2022 Office outpatient visit 25 minutes Jojo Kaur MD Work Phone: Neurology Comment on above: Driving safety issue (Primary Dx) Start: 08-28-2022 Telephone encounter Luis Caldera MD Work Phone: [facility] [place] Comment on above: Anticoagulation Start: 08-16-2022 Refill Abdulaziz Caldera MD Work Phone: [facility] [place] Comment on above: Refill Request Start: 08-14-2022 Telephone encounter [facility] Comment on above: [facility] Start: 08-09-2022 End: 08-09-2022 Patient encounter procedure Abdulaziz Caldera MD Work Phone: [facility] [place] Comment on above: Type 2 diabetes almaz [...] Telephone encounter Luis Caldera MD Work Phone: [facility] [place] Comment on above: checking on medicati on Start: 08-06-2022 End: 08-06-2022 Patient encounter procedure Zachary Jaimes MD Work Phone: Otolaryngology Comment on above: Dizziness (Primary D x); Chronic frontal sinusitis Start: 07-31-2022 Telephone encounter Luis Caldera MD Work Phone: [facility] Comment on above: Anticoagulation Start: 07-26-2022 Telephone encounter Luis Caldera MD Work Phone: [facility] [place] Comment on above: Home Health-Nursing Update Start: 07-25-2022 Refill Abdulaziz Caldera MD Work Phone: [facility] [place] Comment on above: Refill Request Start: 07-17-2022 Telephone encounter Luis Caldera MD Work Phone: [facility] [place] Comment on above: [facility] PT POC OT plan of care Start: 07-13-2022 Telephone encounter Luis Caldera MD Work Phone: [facility] [place] Comment on above: Nursing Plan of C are Update Start: 07-12-2022 Telephone encounter Luis Caldera MD Work Phone: [facility] Comment on above: Orders Start: 07-11-2022 Non-patient / Non-visit Dr. Praveen Caldera Work Phone: [facility] Start: 07-11-2022 Non-patient / Non-visit Dr. Praveen Caldera Work Phone: [facility] In[facility] Start: 07-10-2022 Non-patient / Non-visit Dr. Praveen Caldera Work Phone: [facility] Start: 07-10-2022 Non-patient / Non-visit Dr. Praveen Caldera Work Phone: [facility] Start: 07-09-2022 End: 07-11-2022 Evaluation and management of inpatient Dr. Luis Caldera Work Phone: [facility]-Progressive Care Unit Start: 07-09-2022 Refill Amanda Cunningham [facility] Comment on above: Opened In Error Refill Request Start: 07-05-2022 E-mail encounter fro m caregiver Jojo Kaur MD Work Phone: [facility] Start: 07-05-2022 Patient encounter procedure Jojo Kaur MD Work Phone: Neurology Comment on above: Appointment Needs Re scheduled: 08/21/[address] Kaur Start: 06-25-2022 Refill Abdulaziz Caldera MD Work Phone: [facility] Comment on above: Refill Request Start: 05-16-2022 Refill Abdulaziz Caldera MD Work Phone: [facility] Comment on above: Refill Request Start: 04-17-2022 Telephone encounter Justina fry [employer]PERVISOR Work Phone: Adult Psychology Comment on above: behavioral health so cial work Start: 04-17-2022 End: 04-17-2022 Patient encounter procedure Jojo Kaur MD Work Phone: Neurology Comment on above: Generalized anxiety disorder (Primary Dx); Polyneuropathy Start: 04-16-2022 End: 04-16-2022 Patient encounter procedure Abdulaziz Caldera MD Work Phone: [facility] Comment on above: Type 2 diabetes [...] encounter procedure Roselia Madrigal APRN.CNP Work Phone: [facility] Comment on above: Generalized weakness (Primary Dx); Encounter for immunization; Mild depression Start: 04-04-2022 Telephone encounter Luis Caldera MD Work Phone: [facility] Comment on above: Anticoagulation Start: 03-30-2022 End: 03-30-2022 Patient encounter procedure Zachary Obregon Work Phone: Podiatry Comment on above: Onychomycosis (Prima ry Dx); Pain in toe of left foot; Amputated toe of right foot (HCC); Diabetic polyneuropathy associated with type 2 diabetes mellitus (HCC) Start: 03-23-2022 End: 03-23-2022 ambulatory David oPon PT [facility] Comment on above: Abnormality of gait due to impairment of balance (Primary Dx) Start: 03-22-2022 Refill Abdulaziz Caldera MD Work Phone: [facility] Comment on above: Refill Request Start: 03-15-2022 End: 03-15-2022 ambulatory Karen Weber [employer] Work Phone: [facility] Comment on above: Abnormality of gait due to impairment of balance (Primary Dx) Start: 03-12-2022 End: 03-12-2022 ambulatory Karen Weber [employer] Work Phone: [facility] Comment on above: Abnormality of gait due to impairment of balance (Primary Dx) Start: 03-09-2022 End: 03-09-2022 ambulatory David Lemon PT [facility] Comment on above: Abnormality of gait due to impairment of balance (Primary Dx) Start: 03-07-2022 Telephone encounter Luis Caldera MD Work Phone: [facility] Comment on above: Anticoagulation Start: 03-07-2022 End: 03-07-[address] Luis Caldera Work Phone: [facility] Work Phone: Start: 03-07-2022 End: 03-07-[address] Luis Caldera Work Phone: [facility]-Laboratory, Specimen Start: 03-07-2022 End: 03-07-2022 Patient encounter procedure Abdulaziz Caldera MD Work Phone: [facility] Comment on above: Generalized weakness (Primary Dx); Supratherapeutic INR; ANTHONY (acute kidney injury) (HCC) Start: 03-05-2022 End: 03-05-2022 ambulatory David Lemon PT [facility] Comment on above: Abnormality of gait due to impairment of balance (Primary Dx) Start: 03-02-2022 End: 03-02-2022 Emergency department patient visit Dr. Luis Caldera Work Phone: [facility]-Emergency Department Start: 03-02-2022 End: 03-02-2022 ambulatory David Lemon PT [facility] Comment on above: Abnormality of gait due to impairment of balance (Primary Dx) Start: 02-26-2022 End: 02-26-2022 ambulatory David Lemon PT [facility] Comment on above: Abnormality of gait due to impairment of balance (Primary Dx) Start: 02-23-2022 End: 02-23-2022 ambulatory Karen Weber [employer] Work Phone: [facility] Comment on above: Abnormality of gait due to impairment of balance (Primary Dx) Start: 02-14-2022 End: 02-14-2022 ambulatory David Lemon PT [facility] Comment on above: Abnormality of gait due to impairment of balance (Primary Dx) Start: 02-09-2022 End: 02-09-2022 ambulatory David Lemon PT [facility] Comment on above: Abnormality of gait due to impairment of balance (Primary Dx) Start: 02-06-2022 Refill Abdulaziz Caldera MD Work Phone: [facility] Comment on above: Prescription Refills Start: 02-02-2022 End: 02-02-2022 ambulatory Karenevelyn Wardter [employer] Work Phone: [facility] Comment on above: Abnormality of gait due to impairment of balance (Primary Dx) Start: 01-31-2022 Refill Abdulaziz Caldera MD Work Phone: [facility] Comment on above: Refill Request Start: 01-30-2022 End: 01-30-2022 ambulatory Karen Weber [employer] Work Phone: [facility] Comment on above: Abnormality of gait due to impairment of balance (Primary Dx) Start: 01-23-2022 End: 01-23-2022 ambulatory Karen Weber [employer] Work Phone: [facility] Comment on above: Abnormality of gait due to impairment of balance (Primary Dx) Refill Request; Refi ll Request Start: 01-17-2022 Telephone encounter Luis Caldera MD Work Phone: [facility] Comment on above: Question Start: 01-12-2022 End: 01-12-2022 ambulatory David Lemon PT [facility] Comment on above: Abnormality of gait due to impairment of balance (Primary Dx) Start: 01-11-2022 Telephone encounter Roselia miguel APRN.SUPERVISOR [employer] Work Phone: [facility] Comment on above: Patient Question; Me dication Question; Referral Request Start: 01-10-2022 Telephone encounter Justina Monique APRN.CNP Work Phone: Cardiology Comment on above: Results [...] type Start: 01-02-2022 Telephone encounter Justina Monique APRN.SUPERVISOR [employer] Work Phone: [facility] Comment on above: Results Start: 01-01-2022 End: 01-01-2022 Patient encounter procedure Justina Monique APRN.SUPER[employer]OR [employer] Work Phone: Cardiology Comment on above: Hyperlipidemia with target LDL less than 100 (Primary Dx); Primary hypertension; Thoracic aortic aneurysm without rupture (HCC); Coronary artery disease involving [place] coronary artery of [place] heart without angina pectoris; Syncope, unspecified syncope [...] / Non-visit Dr. Praveen Caldera Work Phone: [facility] Start: 12-28-2021 Non-patient / Non-visit Dr. Praveen Caldera Work Phone: [facility] Start: 12-28-2021 End: 12-29-2021 Evaluation and management of inpatient Dr. Luis Caldera Work Phone: [facility]-Progressive Care Unit Start: 12-27-2021 Non-patient / Non-visit Dr. Praveen Caldera Work Phone: [facility] Start: 12-27-2021 End: 12-27-2021 Emergency department patient visit DR. MELANIA WORKMAN MD. Facility:[facility] Start: 12-27-2021 End: 12-27-2021 Emergency department patient visit DR MELANIA WORKMAN MD [facility] Start: 12-14-2021 End: 12-14-2021 Patient encounter procedure Abdulaziz Caldera MD Work Phone: [facility] Comment on above: COVID-19 (Primary Dx ) Start: 12-08-2021 End: 12-08-2021 ambulatory Abdulaziz Caldera MD Work Phone: [facility] Comment on above: COVID-19 (Primary Dx ) Start: 12-08-2021 End: 12-08-2021 Telemedicine consultation with patient Abdulaziz Caldera MD Work Phone: [facility] Start: 12-08-2021 Telephone encounter Luis Caldera MD Work Phone: [facility] Comment on above: Patient Question Start: 12-06-2021 End: 12-07-2021 Emergency department patient visit [facility]Emergency Department Start: 11-20-2021 Refill Abdulaziz Caldera MD Work Phone: Orthopaedics Start: 10-23-2021 End: 10-23-2021 Patient encounter procedure Marcella Prak PA-C Work Phone: General Surgery Comment on above: Diverticulosis (Prim [place] Dx); Cecal polyp Start: 10-10-2021 End: 10-10-2021 Subsequent hospital visit by physician Richard Jones MD Work Phone: Ambulatory Surgery Comment on above: Colon cancer screeni ng [Z12.11] Start: 10-05-2021 Refill Abdulaziz Caldera MD Work Phone: [facility] Comment on above: Refill Request (SEE RX NOTES) Start: 10-03-2021 Telephone encounter Luis Caldera MD Work Phone: [facility] [place] Comment on above: Medication Question Start: 08-16-2021 Telephone encounter Marcella govea PA-C Work Phone: General Surgery Comment on above: 10-10-2021 Colon ASC Procedures Date Procedure Procedure Detail Performing Clinician Start: 02-11-2025 Blood count smear mcrscp w/mnl difrntl wbc count Dr. Luis Caldera MD Work Phone: Start: 02-11-2025 Mean corpuscular hemoglobin concentration determination Dr. Luis Caldera MD Work Phone: Start: 02-11-2025 Nucleated red blood cell count procedure Dr. Luis Caldera MD Work Phone: Start: 02-11-2025 Platelet mean volume determination Dr. Gabrielle Caldera MD Work Phone: Start: 02-11-[address] Matthew Cadlera MD Work Phone: Start: 02-10-2025 Coagulation time, activated Dr. Camron Caldera MD Work Phone: Start: 02-10-2025 Calculation of international normalized ratio Dr. Luis Caldera MD Work Phone: Start: 02-08-2025 Carbon dioxide measurement, partial pressure Dr. Luis Caldera MD Work Phone: Start: 02-08-2025 Gases blood o2 saturation only direct antoine Dr. Luis Caldera MD Work Phone: Start: 02-08-2025 Measurement of partial pressure of oxygen in blood Dr. Luis Caldera MD Work Phone: Start: 02-08-[address] Luis Caldera MD Work Phone: Start: 02-05-2025 X-ray of foot, three or more views Dr. Gabrielle Caldera MD Work Phone: Start: 02-05-[address] Camron Caldera MD Work Phone: Start: 02-05-[address] acid assay [address] Socrates Caldera MD Work Phone: Start: 02-05-[address] Luis Caldera MD Work Phone: Start: 02-05-2025 End: 02-05-2025 Microbial culture, routine Dr. Ramón Caldera MD Work Phone: Start: 02-05-[address] Luis Caldera MD Work Phone: Start: 02-04-2025 MRI of lower extremity Dr. Luis Caldera MD Work Phone: Start: 02-03-[address] acid assay Dr[address] Socrates Caldera MD Work Phone: Start: 02-03-[address] Camron Caldera MD Work Phone: Start: 02-03-[address] Luis Caldera MD Work Phone: Start: 02-03-2025 End: 02-03-2025 Microbial culture, routine Dr. Ramón Caldera MD Work Phone: Start: 02-03-[address] Luis Caldera MD Work Phone: Start: 02-03-2025 Wound microscopy, culture and sensitivities Dr. Luis Caldera MD Work Phone: Start: 02-03-[address] Luis Caldera MD Work Phone: Start: 02-02-2025 Urine microscopy: red cells Dr. Camron Caldera MD Work Phone: Start: 02-02-2025 Urnls dip stick/tablet reagent auto microscopy Dr. Luis Caldera MD Work Phone: Start: 02-02-2025 Plain chest X-ray Dr. Luis Caldera MD Work Phone: Start: 02-02-2025 X-ray of foot, two views Dr. Luis Caldera MD Work Phone: Start: 02-02-2025 CT of head without contrast Dr. Camron Caldera MD Work Phone: Start: 02-02-[address] Matthew Caldera MD Work Phone: Start: 02-02-[address] Luis Caldera MD Work Phone: Start: 02-02-2025 Legionella pneumophila antigen assay Dr. Luis Caldera MD Work Phone: Start: 02-02-2025 End: 02-02-2025 Streptococcus pneumoniae antigen assay Dr. Luis Caldera MD Work Phone: Start: 02-02-[address] Luis Caldera MD Work Phone: Start: 12-22-2024 Mean corpuscular hemoglobin concentration determination Dr. Luis Caldera MD Work Phone: Start: 12-22-2024 Platelet mean volume determination Dr. Gabrielle Caldera MD Work Phone: Start: 12-16-2024 Vitamin D, 25-hydroxy measurement Dr. Praveen Caldera MD Work Phone: Comment on above: Vitamin D StatusDeficiency: <20 ng/mL (5 0nmol/L)Insufficiency: 20-30 ng/mL (50-75 nmol/L)Sufficiency: 30-100 ng/mL (75-250 nmol/L)Toxicity: >100 ng/mL (>250 nmol/L) Start: 11-24-[address] Luis Caldera MD Work Phone: Start: 11-24-2024 Mean corpuscular hemoglobin concentration determination Dr. Luis Caldera MD Work Phone: Start: 11-24-2024 Platelet mean volume determination Dr. Gabrielle Caldera MD Work Phone: Start: 11-24-2024 Urine microscopy: red cells Dr. Camron Caldera MD Work Phone: Start: 11-24-2024 Urnls dip stick/tablet reagent auto microscopy Dr. Luis Caldera MD Work Phone: Start: 08-04-[address] Luis Caldera [...] QUADRIVALENT HIGH DOSE AGE 65+ Roselia Podlogar APICULTURIST.SUPERVISOR [employer] Work Phone: Start: 04-06-2022 [employer] COVID-19 BIVALENT BOOSTER VACCINE, AGE 12+ YR Roselia Podlogar APICULTURIST.SUPERVISOR [employer] Work Phone: Start: 04-06-2022 Adult depression screening assessment Roselia Podlogar APICULTURIST.SUPERVISOR [employer] Work Phone: Start: 03-07-2022 PROTHROMBIN TIME/PT Abdulaziz Caldera MD Work Phone: Start: 03-07-2022 Adult depression screening assessment Abdulaziz Caldera MD Work Phone: Start: 03-02-2022 CT of head without contrast Dr. Camron Caldera Work Phone: Start: 03-02-2022 Plain chest X-ray Dr. Luis Caldera Work Phone: Start: 01-09-2022 Echo tthrc r-t 2d w/wom-mode compl spec&colr d Justina Dunia Monique APICULTURIST.SUPERVISOR [employer] Work Phone: Start: 01-01-2022 Urnls dip stick/tablet [...] Activity Detail Author Start: 10-11-2031 Colonoscopy COLONOSCOPY [facility] Start: 10-11-2031 COLORECTAL CANCER SCREENING COLORECTAL CANCER SCREENING [facility] Start: 02-11-2025 [facility] Start: 02-11-2025 Patient discharge [facility] Start: 02-11-2025 Application, wound VAC [facility] Start: 02-11-2025 [facility] Start: 02-10-2025 Elevation of head of bed [facility] Start: 02-10-2025 End: 02-10-2025 [facility] Start: 02-10-2025 Cardiac monitoring [facility] Start: 02-10-2025 Dietary regime [facility] Start: 02-10-2025 Log roll [facility] Start: 02-10-2025 Notification of physician [facility] Start: 02-10-2025 Provision of activit y privileges [facility] Start: 02-10-2025 Pulse taking [facility] Start: 02-09-2025 Catheterization of vein [facility] Start: 02-09-2025 Notification of physician [facility] Start: 02-09-2025 Preoperative care [facility] Start: 02-09-2025 End: 02-09-2025 [facility] Start: 02-08-2025 Consultation [facility] Start: 02-07-2025 [facility] Start: 02-05-2025 [facility] Start: 02-05-2025 Acid fast bacilli culture [facility] Start: 02-05-2025 Acid fast bacilli culture [facility] Start: 02-05-2025 Mycology culture [facility] Start: 02-04-2025 Removal of urinary catheter [facility] Start: 02-04-2025 [facility] Start: 02-03-2025 End: 02-03-2025 [facility] Start: 02-03-2025 Referral to vascular surgeon [facility] Start: 02-03-2025 Following clinical p athway protocol [facility] Start: 02-03-2025 Assessment of risk o f venous thromboembolism [facility] Start: 02-03-2025 Care regimes management [facility] Start: 02-03-2025 Consultation for treatment [facility] Start: 02-03-2025 Elevation of affecte d extremity [facility] Start: 02-03-2025 Fall prevention [facility] Start: 02-03-2025 Inhalation therapy procedure [facility] Start: 02-03-2025 Insertion of cathete r into peripheral vein [facility] Start: 02-03-2025 Introduction of urin barrington catheter [facility] Start: 02-03-2025 Measuring intake and output [facility] Start: 02-03-2025 Methicillin resistan t Staphylococcus aureus screening test [facility] Start: 02-03-2025 Notification of physician [facility] Start: 02-03-2025 Oxygen therapy [facility] Start: 02-03-2025 Providing care accor ding to standard [facility] Start: 07-23-2025 Provision of activit y privileges [facility] Start: 02-03-2025 Referral to occupati onal therapist [facility] Start: 02-03-2025 Referral to tractor distributor [facility] Start: 02-03-2025 Referral to service [facility] Start: 02-03-2025 Speech therapy assessment [facility] Start: 02-03-2025 Wound care [facility] Start: 02-03-2025 End: 02-03-2025 [facility] Start: 02-03-2025 Patient referral to dietitian [facility] Start: 02-02-2025 Hospital admission, emergency, from emergency room, medical nature [facility] Start: 02-02-2025 Respiratory pathogen s DNA and RNA panel - Respiratory specimen by ANGELY with probe detection [facility] Start: 02-02-2025 Verification routine [facility] Start: 02-02-2025 Admission procedure [facility] Start: 02-02-2025 [facility] Start: 02-02-2025 End: 02-02-2025 [facility] Start: 02-02-2025 Bacteria identified in Blood by Culture Blood Culture [facility] Start: 02-02-2025 Bacteria identified in Urine by Culture Urine Culture [facility] Start: 10-10-2024 Colonoscopy COLONOSCOPY [facility] Start: 10-10-2024 COLORECTAL CANCER SCREENING COLORECTAL CANCER SCREENING [facility] Start: 01-05-2024 ANNUAL PCP TEAM CASING FLUID TENDER MARLENE DISEASE VISIT ANNUAL PCP TEAM CHRONIC DISEASE VISIT [facility] Start: 01-05-2024 BP CONTROLLED (<130/80) BP CONTROLLE D (<130/80) [facility] Start: 12-04-2023 BP CONTROLLED (<130/80) BP CONTROLLE D (<130/80) [facility] Start: 11-20-2023 ANNUAL PCP TEAM CASING FLUID TENDER MARLENE DISEASE VISIT ANNUAL PCP TEAM CHRONIC DISEASE VISIT [facility] Start: 11-20-2023 BP CONTROLLED (<130/80) BP CONTROLLE D (<130/80) [facility] Start: 09-07-2023 BP CONTROLLED (<130/80) BP CONTROLLE D (<130/80) [facility] Start: 08-13-2023 HEMOGLOBIN/HEMATOCRIT HEMOGLOBIN/HEM ATOCRIT [facility] Start: 08-13-2023 SERUM CREATININE SERUM CREATININE [facility] Start: 08-09-2023 ANNUAL PCP TEAM CASING FLUID TENDER MARLENE DISEASE VISIT ANNUAL PCP TEAM CHRONIC DISEASE VISIT [facility] Start: 08-09-2023 BP CONTROLLED (<130/80) BP CONTROLLE D (<130/80) [facility] Start: 07-12-2023 ANNUAL PCP TEAM CASING FLUID TENDER MARLENE DISEASE VISIT ANNUAL PCP TEAM CHRONIC DISEASE VISIT [facility] Start: 07-12-2023 BP CONTROLLED (<130/80) BP CONTROLLE D (<130/80) [facility] Start: 06-03-2023 Anes dx/ther nerve block/injection prone pos ANESTH N BLOCK/INJ PRONE [facility] Start: 06-03-2023 Njx dx/ther sbst int rlmnr lmbr/sac w/img gdn NJX INTERLAMINAR LMBR/SAC [facility] Start: 06-03-2023 Injection using fluoroscopic guidance [facility] Start: 06-03-2023 Patient discharge [facility] Start: 04-17-2023 BP CONTROLLED (<130/80) BP CONTROLLE D (<130/80) [facility] Start: 04-16-2023 ANNUAL PCP TEAM CASING FLUID TENDER MARLENE DISEASE VISIT ANNUAL PCP TEAM CHRONIC DISEASE VISIT [facility] Start: 04-06-2023 Adult depression scr eening assessment DEPRESSION SCREENING [facility] Start: 04-06-2023 ANNUAL PCP TEAM CASING FLUID TENDER MARLENE DISEASE VISIT ANNUAL PCP TEAM CHRONIC DISEASE VISIT [facility] Start: 04-06-2023 BP CONTROLLED (<130/80) BP CONTROLLE D (<130/80) [facility] Start: 03-30-2023 3 comp foot exam completed DIABETIC FOOT EXAM [facility] Start: 03-15-2023 Influenza vaccination INFLUENZA (#1) [facility] Start: 03-07-2023 Adult depression scr eening assessment DEPRESSION SCREENING [facility] Start: 03-07-2023 ANNUAL PCP TEAM CASING FLUID TENDER MARLENE DISEASE VISIT ANNUAL PCP TEAM CHRONIC DISEASE VISIT [facility] Start: 03-07-2023 BP CONTROLLED (<130/80) BP CONTROLLE D (<130/80) [facility] Start: 03-07-2023 SERUM CREATININE SERUM CREATININE Cl [facility] Start: 03-05-2023 BP CONTROLLED (<130/80) BP CONTROLLE D (<130/80) [facility] Start: 03-02-2023 Hepatitis B screening URINE ALBUMIN:CREATININE RATIO [facility] Start: 02-13-2023 Patient discharge [facility] Start: 02-12-2023 Care regimes management [facility] Start: 02-12-2023 Notification of physician [facility] Start: 02-12-2023 [facility] Start: 02-12-2023 Blood culture [facility] Start: 02-12-2023 End: 02-12-2023 [facility] Start: 02-11-2023 End: 02-11-2023 Blood culture [facility] Start: 02-11-2023 Assessment of risk o f venous thromboembolism [facility] Start: 02-11-2023 Consultation [facility] Start: 02-11-2023 Insertion of cathete r into peripheral vein [facility] Start: 02-11-2023 Providing care accor ding to standard [facility] Start: 02-11-2023 Provision of activit y privileges [facility] Start: 02-11-2023 Referral to occupati onal therapist [facility] Start: 02-11-2023 Referral to service [facility] Start: 02-11-2023 [facility] Start: 02-11-2023 Admission procedure [facility] Start: 02-11-2023 [facility] Start: 02-11-2023 Patient referral to dietitian [facility] Start: 02-10-2023 End: 02-10-2023 [facility] Start: 02-10-2023 End: 02-10-2023 Blood culture [facility] Start: 02-10-2023 Hemoglobin A1c/Hemoglobin.total in Blood HBA1C [facility] Start: 02-05-2023 Patient discharge [facility] Start: 02-04-2023 Assessment of risk o f venous thromboembolism [facility] Start: 02-04-2023 Bedrest [facility] Start: 02-04-2023 Elevation of head of bed [facility] Start: 02-04-2023 Taking patient vital signs [facility] Start: 02-04-2023 Wound care [facility] Start: 02-04-2023 [facility] Start: 02-04-2023 Catheterization of vein [facility] Start: 02-04-2023 Notification of physician [facility] Start: 02-04-2023 [facility] Start: 02-01-2023 Catheterization of vein [facility] Start: 02-01-2023 Notification of physician [facility] Start: 02-01-2023 [facility] Start: 02-01-2023 [facility] Start: 01-30-2023 Referral to workers' compensation claims examiner [facility] Start: 01-30-2023 End: 01-30-2023 Administration of blood product [facility] Start: 01-29-2023 Speech therapy assessment [facility] Start: 01-29-2023 [facility] Start: 01-28-2023 End: 01-29-2023 [facility] Start: 01-27-2023 Application of intermittent pneumatic compression device [facility] Start: 01-27-2023 Following clinical p athway protocol [facility] Start: 01-27-2023 Methicillin resistan t Staphylococcus aureus screening test [facility] Start: 01-27-2023 Aspiration precautions [facility] Start: 01-27-2023 Assessment of risk o f venous thromboembolism [facility] Start: 01-27-2023 Care regimes management [facility] Start: 01-27-2023 Fall prevention [facility] Start: 01-27-2023 Insertion of cathete r into peripheral vein [facility] Start: 01-27-2023 Introduction of urin barrington catheter [facility] Start: 01-27-2023 Measuring intake and output [facility] Start: 01-27-2023 Providing care accor ding to standard [facility] Start: 01-27-2023 Provision of activit y privileges [facility] Start: 01-27-2023 Referral to gastroenterology service [facility] Start: 01-27-2023 Referral to occupati onal therapist [facility] Start: 01-27-2023 Referral to service [facility] Start: 01-27-2023 [facility] Start: 01-27-2023 Admission procedure [facility] Start: 01-27-2023 CT Chest and Abdomen and Pelvis WO and W contrast IV [facility] Start: 01-27-2023 CT of thorax, abdome n and pelvis with contrast CTA Chst, Abd, Pel W and/or WO [facility] Start: 01-27-2023 Blood chemistry [facility] Start: 01-27-2023 End: 01-28-2023 [facility] Start: 01-27-2023 Patient referral to dietitian [facility] Start: 01-26-2023 Patient discharge [facility] Start: 01-24-2023 Speech therapy assessment [facility] Start: 01-24-2023 Speech therapy assessment [facility] Start: 01-22-2023 Referral to workers' compensation claims examiner [facility] Start: 01-21-2023 Administration of bl ood product [facility] Start: 01-21-2023 Catheterization of vein [facility] Start: 01-21-2023 Application of intermittent pneumatic compression device [facility] Start: 01-21-2023 Following clinical p athway protocol [facility] Start: 01-21-2023 Care regimes management [facility] Start: 01-21-2023 Notification of physician [facility] Start: 01-21-2023 Cardiac monitoring [facility] Start: 01-21-2023 Referral to gastroenterology service [facility] Start: 01-21-2023 End: 01-21-2023 [facility] Start: 01-21-2023 Oxygen therapy [facility] Start: 01-21-2023 Ambulation without limitation [facility] Start: 01-21-2023 Documentation procedure [facility] Start: 01-21-2023 Assessment of risk o f venous thromboembolism [facility] Start: 01-21-2023 Continuous pulse oximetry [facility] Start: 01-21-2023 Insertion of cathete r into peripheral vein [facility] Start: 01-21-2023 Measuring intake and output [facility] Start: 01-21-2023 Providing care accor ding to standard [facility] Start: 01-21-2023 Referral to occupati onal therapist [facility] Start: 01-21-2023 Referral to service [facility] Start: 01-21-2023 Verification routine [facility] Start: 01-21-2023 Vital signs measurements [facility] Start: 01-21-2023 Admission procedure [facility] Start: 01-21-2023 Transfusion of red b lood cells [facility] Start: 01-08-2023 Patient discharge [facility] Start: 01-05-2023 BP CONTROLLED (<130/80) BP CONTROLLE D (<130/80) [facility] Start: 01-05-2023 Admission procedure [facility] Start: 01-05-2023 Telepractice consultation [facility] Start: 01-04-2023 Application of intermittent pneumatic compression device [facility] Start: 01-04-2023 Following clinical p athway protocol [facility] Start: 01-04-2023 Aspiration precautions [facility] Start: 01-04-2023 Assessment of risk o f venous thromboembolism [facility] Start: 01-04-2023 Cardiac monitoring [facility] Start: 01-04-2023 Care regimes management [facility] Start: 01-04-2023 Catheterization of vein [facility] Start: 01-04-2023 Elevation of head of bed [facility] Start: 01-04-2023 Exercises [facility] Start: 01-04-2023 Fall prevention [facility] Start: 01-04-2023 Inhalation therapy procedure [facility] Start: 01-04-2023 Insertion of cathete r into peripheral vein [facility] Start: 01-04-2023 Introduction of urin barrington catheter [facility] Start: 01-04-2023 Measuring intake and output [facility] Start: 01-04-2023 Notification of physician [facility] Start: 01-04-2023 Providing care accor ding to standard [facility] Start: 01-04-2023 Provision of activit y privileges [facility] Start: 01-04-2023 Referral to occupati onal therapist [facility] Start: 01-04-2023 Referral to service [facility] Start: 01-04-2023 Tobacco use cessatio n education [facility] Start: 01-04-2023 Verification routine [facility] Start: 01-04-2023 Admission procedure [facility] Start: 01-04-2023 End: 01-04-2023 [facility] Start: 01-04-2023 End: 01-04-2023 Blood culture [facility] Start: 01-04-2023 Patient referral to dietitian [facility] Start: 01-01-2023 ANNUAL PCP TEAM CASING FLUID TENDER MARLENE DISEASE VISIT ANNUAL PCP TEAM CHRONIC DISEASE VISIT [facility] Start: 01-01-2023 BP CONTROLLED (<130/80) BP CONTROLLE D (<130/80) [facility] Start: 01-01-2023 Hepatitis B surface antibody level LDL CHOLESTEROL [facility] Start: 01-01-2023 SERUM CREATININE SERUM CREATININE [facility] Start: 12-14-2022 ANNUAL PCP TEAM CASING FLUID TENDER MARLENE DISEASE VISIT ANNUAL PCP TEAM CHRONIC DISEASE VISIT [facility] Start: 12-08-2022 ANNUAL PCP TEAM CASING FLUID TENDER MARLENE DISEASE VISIT ANNUAL PCP TEAM CHRONIC DISEASE VISIT [facility] Start: 12-08-2022 BP CONTROLLED (<130/80) BP CONTROLLE D (<130/80) [facility] Start: 09-06-2022 ANNUAL PCP TEAM CASING FLUID TENDER MARLENE DISEASE VISIT ANNUAL PCP TEAM CHRONIC DISEASE VISIT [facility] Start: 09-02-2022 Hemoglobin A1c/Hemoglobin.total in Blood HBA1C [facility] Start: 08-30-2022 SERUM CREATININE SERUM CREATININE [facility] Start: 08-09-2022 End: 10-09-2022 CBC W Auto Differential panel - Blood CBC + DIFF Lab Routine Type 2 diabetes mellitus with diabetic neuropathy, with long-term current use of insulin (HCC) Expected: 08/09/2022, Expires: 10/09/2022 [facility] Work Phone: Comment on above: Expected: 08/09/2022 , Expires: 10/09/2022 Start: 08-09-2022 End: 10-09-2022 Comprehensive metabolic 2000 panel - Serum or Plasma COMP METABOLIC PANEL Lab Routine Type 2 diabetes mellitus with diabetic neuropathy, with long-term current use of insulin (HCC) Expected: 08/09/2022, Expires: 10/09/2022 [facility] Work Phone: Comment on above: Expected: 08/09/2022 , Expires: 10/09/2022 Start: 08-09-2022 End: 10-09-2022 Hemoglobin A1c in Blood HGB A1C Lab Routine Type 2 diabetes mellitus with diabetic neuropathy, with long-term current use of insulin (HCC) Expected: 08/09/2022, Expires: 10/09/2022 [facility] Work Phone: Comment on above: Expected: 08/09/2022 , Expires: 10/09/2022 Start: 08-06-2022 COVID-19 VACCINE (6 - Pfizer series) COVID-19 VACCINE (6 - Pfizer series) [facility] Start: 07-15-2022 ADVANCE DIRECTIVE DISCUSSION ADVANCE DIRECTIVE DISCUSSION [facility] Start: 07-15-2022 DEPRESSION ASSESSMENT DEPRESSION ASS ESSMENT [facility] Start: 07-11-2022 Patient discharge [facility] Work Phone: Start: 07-11-2022 Referral to service [facility] Work Phone: Start: 07-10-2022 [facility] Work Phone: Start: 07-10-2022 Following clinical p athway protocol [facility] Work Phone: Start: 07-10-2022 Assessment of risk o f venous thromboembolism [facility] Work Phone: Start: 07-10-2022 Cardiac monitoring [facility] Work Phone: Start: 07-10-2022 Care regimes management [facility] Work Phone: Start: 07-10-2022 Catheterization of vein [facility] Work Phone: Start: 07-10-2022 Continuous pulse oximetry [facility] Work Phone: Start: 07-10-2022 Elevation of head of bed [facility] Work Phone: Start: 07-10-2022 Exercises [facility] Work Phone: Start: 07-10-2022 Fall prevention [facility] Work Phone: Start: 07-10-[address] anned interventions [facility] Work Phone: Start: 07-10-2022 Incentive spirometry [facility] Work Phone: Start: 07-10-2022 Insertion of cathete r into peripheral vein [facility] Work Phone: Start: 07-10-2022 Introduction of urin barrington catheter [facility] Work Phone: Start: 07-10-2022 Measuring intake and output [facility] Work Phone: Start: 07-10-2022 Notification of physician [facility] Work Phone: Start: 07-10-2022 Oxygen therapy [facility] Work Phone: Start: 07-10-2022 Providing care accor ding to standard [facility] Work Phone: Start: 07-10-2022 Provision of activit y privileges [facility] Work Phone: Start: 07-10-2022 Referral to workers' compensation claims examiner [facility] Work Phone: Start: 07-10-2022 Referral to occupati onal therapist [facility] Work Phone: Start: 07-10-2022 Referral to service [facility] Work Phone: Start: 07-10-2022 Tobacco use cessatio n education [facility] Work Phone: Start: 07-10-2022 [facility] Work Phone: Start: 07-10-2022 Patient referral to dietitian [facility] Work Phone: Start: 07-09-2022 Admission procedure [facility] Work Phone: Start: 03-15-2022 HEMOGLOBIN/HEMATOCRIT HEMOGLOBIN/HEM ATOCRIT [facility] Start: 03-15-2022 Influenza vaccination INFLUENZA (#1) [facility] Start: 03-07-2022 End: 05-07-2022 Comprehensive metabolic 2000 panel - Serum or Plasma [facility] Work Phone: Comment on above: Expected: 03/07/2022 , Expires: 05/07/2022 Start: 03-02-2022 [facility] Work Phone: Start: 02-27-2022 Hemoglobin A1c/Hemoglobin.total in Blood HBA1C [facility] Start: 02-20-2022 Hepatitis C antibody , confirmatory test DILATED RETINAL EXAM [facility] Start: 01-30-2022 End: 04-01-2022 ALBUMIN/CREAT RATIO RND UR ALBUMIN/CREAT RATIO RND UR Lab Routine Type 2 diabetes mellitus with stage 3 chronic kidney disease, with long-term current use of insulin (HCC) Expected: 01/30/2022, Expires: 04/01/2022 [facility] Work Phone: Comment on above: Expected: 01/30/2022 , Expires: 04/01/2022 Start: 01-30-2022 End: 04-01-2022 Hemoglobin A1c in Blood HGB A1C Lab Routine Type 2 diabetes mellitus with stage 3 chronic kidney disease, with long-term current use of insulin (HCC) Expected: 01/30/2022, Expires: 04/01/2022 [facility] Work Phone: Comment on above: Expected: 01/30/2022 , Expires: 04/01/2022 Start: 01-30-2022 End: 04-01-2022 SCHEDULE LAB TESTING SCHEDULE LAB TESTING Lab Routine Expected: 01/30/2022, Expires: 04/01/2022 [facility] Work Phone: Comment on above: Expected: 01/30/2022 , Expires: 04/01/2022 Start: 01-05-2022 End: 03-07-2022 Magnesium [Mass/volume] in Serum or Plasma MAGNESIUM BLD Lab Routine Altered mental status, unspecified altered mental status type Expected: 01/05/2022, Expires: 03/07/2022 [facility] Work Phone: Comment on above: Expected: 01/05/2022 , Expires: 03/07/2022 Start: 01-05-2022 End: 03-07-2022 Methylmalonate [Moles/volume] in Serum or Plasma METHYLMALONIC ACID Lab Routine Altered mental status, unspecified altered mental status type Expected: 01/05/2022, Expires: 03/07/2022 [facility] Work Phone: Comment on above: Expected: 01/05/2022 , Expires: 03/07/2022 Start: 01-01-2022 End: 03-03-2022 25-hydroxyvitamin D3 [Mass/volume] in Serum or Plasma [facility] Work Phone: Comment on above: Expected: 01/01/2022 , Expires: 03/03/2022 Start: 01-01-2022 End: 03-03-2022 Lipid 1996 panel - Serum or Plasma [facility] Work Phone: Comment on above: Expected: 01/01/2022 , Expires: 03/03/2022 Start: 12-30-2021 Blood chemistry [facility] Work Phone: Start: 12-29-2021 Patient discharge [facility] Work Phone: Start: 12-28-2021 Admission procedure [facility] Work Phone: Start: 12-27-2021 End: 12-28-2021 [facility] Work Phone: Start: 12-27-2021 Oxygen therapy [facility] Work Phone: Start: 12-27-2021 Incentive spirometry [facility] Work Phone: Start: 12-27-2021 Admission procedure [facility] Work Phone: Start: 12-27-2021 Assessment of risk o f venous thromboembolism [facility] Work Phone: Start: 12-27-2021 Following clinical p athway protocol [facility] Work Phone: Start: 12-27-2021 Insertion of cathete r into peripheral vein [facility] Work Phone: Start: 12-27-2021 Measuring intake and output [facility] Work Phone: Start: 12-27-2021 Providing care accor ding to standard [facility] Work Phone: Start: 12-27-2021 End: 12-27-2021 Referral to service [facility] Work Phone: Start: 12-06-2021 Bacteria identified in Blood by Culture Blood Culture [facility] Work Phone: Start: 11-23-2021 3 comp foot exam completed DIABETIC FOOT EXAM [facility] Start: 11-16-2021 Hepatitis B screening URINE ALBUMIN:CREATININE RATIO [facility] Start: 11-16-2021 Hepatitis B surface antibody level LDL CHOLESTEROL [facility] Start: 10-28-2021 Adult depression scr eening assessment DEPRESSION SCREENING [facility] Start: 09-15-2021 COVID-19 VACCINE (4 - Booster for Pfizer series) COVID-19 VACCINE (4 - Booster for Pfizer series) [facility] Start: 07-15-2021 ADVANCE DIRECTIVE DISCUSSION ADVANCE DIRECTIVE DISCUSSION [facility] Start: 07-15-2021 DEPRESSION ASSESSMENT DEPRESSION ASS ESSMENT [facility] Start: 03-12-2021 Colonoscopy COLONOSCOPY [facility] Start: 03-12-2021 COLORECTAL CANCER SCREENING COLORECTAL CANCER SCREENING [facility] Start: 12-25-2020 Urine microalbumin profile DTA P,TDAP,TD (3 - Td or Tdap) [facility] Start: 10-12-1992 COLOGUARD (FIT-DNA) COLOGUARD (FIT-D NA) [facility] Start: 10-12-[address] COLONOGRAPHY [facility] Start: 10-12-1992 FECAL OCCULT BLOOD FECAL OCCULT BLOO D [facility] Start: 10-12-1992 SIGMOIDOSCOPY SIGMOIDOSCOPY [facility] Start: 10-12-1965 BP CONTROLLED (<130/80) BP CONTROLLE D (<130/80) [facility] Acid fast bacilli culture [facility] Alanine aminotransfe rase [Enzymatic activity/volume] in Serum or Plasma [facility] Aspartate aminotrans ferase [Enzymatic activity/volume] in Serum or Plasma [facility] Bacteria identified in Blood by Culture Blood Culture [facility] Bacteria identified in Urine by Culture Urine Culture [facility] Creatine kinase [Enz ymatic activity/volume] in Serum or Plasma [facility] End: 01-05-2023 EPIL EEG ROUTINE EPIL EEG ROUTINE NEUROLOGY Routine Altered mental status, unspecified altered mental status type 1 Occurrences starting 01/05/2022 until 01/05/2023 [facility] Work Phone: Comment on above: 1 Occurrences starti ng 01/05/2022 until 01/05/2023 Fungus identified in Unspecified specimen by Culture [facility] Fungus identified in Unspecified specimen by Fungus stain [facility] Lipid 1996 panel - S chavez or Plasma [facility] Magnesium [Mass/volu me] in Serum or Plasma [facility] Magnesium [Mass/volu me] in Serum or Plasma [facility] Mycobacterium sp identified in Unspecified specimen by Organism specific culture [facility] Mycobacterium sp identified in Unspecified specimen by Organism specific culture [facility] Patient Education [facility] Work Phone: Patient referral [facility] Work Phone: PT PLAN OF CARE CERTIFICATION PT PLAN OF CARE CERTIFICATION Procedures Routine Abnormality of gait due to impairment of balance Ordered: 01/12/2022 [facility] Comment on above: Ordered: 01/12/2022 PT PLAN OF CARE CERTIFICATION PT PLAN OF CARE CERTIFICATION Procedures Routine Abnormality of gait due to impairment of balance Ordered: 03/09/2022 [facility] Comment on above: Ordered: 03/09/2022 SURGICAL PATHOLOGY [facility] Work Phone: Comment on above: Release Upon Orderin g for 1 Occurrences starting 10/10/2021, 1 completed Urine culture [facility] Immunizations Immunization Date Immunization Notes Care Provider Fa ingrid 04-06-2022 COVID-19 booster vaccine, age 12+ yr, bivalent (PFIZER-BIONTECH) 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 Luis Caldera MD Work Phone: [facility] 04-06-2022 influenza, high dose seasonal, preservative-free Dr. 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 Maggy Roberts Work Phone: [facility] 03-28-2022 influenza, seasonal, injectable Dr. Maggy Roberts Work Phone: [facility] 06-14-2021 Influenza, high dose seasonal Dr. Luis Caldera MD Work Phone: [facility] 06-14-2021 influenza, high dose seasonal, preservative-free Dr. Maggy Roberts Work Phone: [facility] 06-14-2021 influenza, high-dose , quadrivalent vaccine (FLUZONE HIGH DOSE QUADRIVALENT) Abdulaziz Caldera MD Work Phone: [facility] Work Phone: 05-18-2021 Covid (Pfizer) Dr. Maggy Roberts Work Phone: [facility] 02-24-2021 zoster vaccine recombinant Abdulaziz Caldera MD Work Phone: [facility] 12-13-2020 Covid (Pfizer) Dr. Ramón Caldera Work Phone: [facility] 09-30-2020 COVID-19 vaccine, ag e 12+ yr (PFIZER-BIONTECH - PURPLE TOP) Abdulaziz Caldera MD Work Phone: [facility] 09-09-2020 COVID-19 vaccine, ag e 12+ yr (PFIZER-BIONTECH - PURPLE TOP) Abdulaziz Caldera MD Work Phone: [facility] 04-16-2020 Influenza, high dose seasonal Dr. Luis Caldera MD Work Phone: [facility] 04-16-2020 influenza, high dose seasonal, preservative-free Dr. Maggy Roberts Work Phone: [facility] 04-16-2020 influenza, high-dose , quadrivalent vaccine (FLUZONE HIGH DOSE QUADRIVALENT) Abdulaziz Caldera MD Work Phone: [facility] 03-14-2020 zoster vaccine recombinant Abdulaziz Caldera MD Work Phone: [facility] Work Phone: 04-02-2019 Influenza, high dose seasonal Dr. Luis Caldera MD Work Phone: [facility] 04-02-2019 influenza, high dose seasonal, preservative-free Abdulaziz Caldera MD Work Phone: [facility] Work Phone: 05-08-2018 Influenza virus vaccine [facility] 04-15-2018 Influenza, high dose seasonal Dr. Luis Caldera MD Work Phone: [facility] 04-15-2018 influenza, high dose seasonal, preservative-free Abdulaziz Caldera MD Work Phone: [facility] 06-13-2017 Influenza, high dose seasonal Dr. Luis Caldera MD Work Phone: [facility] 06-13-2017 influenza, high dose seasonal, preservative-free Abdulaziz Caldera MD Work Phone: [facility] 06-20-2016 influenza, high dose seasonal, preservative-free Abdulaziz Caldera MD Work Phone: [facility] 11-24-2015 pneumococcal polysaccharide vaccine, 23 valent Abdulaziz Caldera MD Work Phone: [facility] 05-16-2015 Influenza, high dose seasonal Dr. Luis Caldera MD Work Phone: [facility] 05-16-2015 influenza, high dose seasonal, preservative-free Abdulaziz Caldera MD Work Phone: [facility] 10-27-2014 pneumococcal conjuga te vaccine, 13 valent Abdulaziz Caldera MD Work Phone: [facility] 10-27-2014 zoster vaccine, live Socrates Caldera MD Work Phone: [facility] 04-14-2013 Influenza virus vaccine [facility] 06-11-2011 influenza virus vaccine, unspecified formulation Abdulaziz Caldera MD Work Phone: [facility] 12-25-2010 tetanus toxoid, redu veronika diphtheria toxoid, and acellular pertussis vaccine, adsorbed Abdulaziz Caldera MD Work Phone: [facility] 04-25-2009 pneumococcal polysaccharide vaccine, 23 valent Abdulaziz Caldera MD Work Phone: [facility] 03-21-2000 diphtheria and tetan us toxoids, adsorbed for pediatric use Abdulaziz Caldera MD Work Phone: [facility] Work Phone: 02-11-1961 poliovirus vaccine, inactivated Abdulaziz Caldera MD Work Phone: [facility] Work Phone: 03-25-1959 poliovirus vaccine, inactivated Abdulaziz Caldera MD Work Phone: [facility] Work Phone: 10-16-1956 poliovirus vaccine, inactivated Abdulaziz Caldera MD Work Phone: [facility] Work Phone: 01-12-1956 poliovirus vaccine, inactivated Abdulaziz Caldera MD Work Phone: [facility] Work Phone: 12-03-1955 poliovirus vaccine, inactivated Abdulaziz Caldera MD Work Phone: [facility] Work Phone: Payers Date Payer Category Payer Self-pay [id number] 2021 Medicare [id number] 2021 Unknown [id number] 2012 Unknown HOSPITAL/MEDICAL GENERIC MEDICAL GENERIC [id number] 2012-Present [phone] [address] [place] [address] Indemnity [id number] 2012 Unknown HOSPITAL/MEDICAL GENERIC MEDICAL GENERIC [id number] 2012-Present [phone] [address] [place] [address] Indemnity [id number] 2012 Medicare MEDICARE MEDICAR E A AND B [id number] 2012-Present [phone] [place] [address] Medicare [id number] 2012 Medicare MEDICARE MEDICAR E A AND B [id number] 2012-Present [phone] [place] [address] Medicare [id number] 1945 Unknown [id number] [id number]7 Unknown [id number] 2.16.840.1.435514.3.579.2.462 Unknown [id number] 2.16.840.1.527727.3.579.2.462 Unknown [id number] 2.16.840.1.519662.3.579.2.462 Unknown [id number] 2.16.840.1.249759.3.579.2.462 Unknown [id number] 2.16.840.1.306988.3.579.2.462 Unknown [id number] 2.16.840.1.650530.3.579.2.462 Unknown [id number] 2.16840.1.024857.3.579.2.462 Unknown [id number] 2.16840.1.176826.3.579.2.462 Unknown [id number] 2.16840.1.579495.3.579.2.462 Unknown [id number] 2.840.1.684730.3.579.2.462 Unknown [id number] 2.840.1.701558.3.579.2.462 Unknown [id number] 2.16.840.1.555409.3.579.2.462 Unknown [id number] 2.16840.1.983727.3.579.2.462 Unknown [id number] 2.16840.1.052532.3.579.2.462 Unknown [id number] 2.16840.1.638396.3.579.2.462 Unknown [id number] 2.16.840.1.654441.3.579.2.462 Unknown [id number] 2.16.840.1.085866.3.579.2.462 Unknown [id number] 2.16.840.1.196896.3.579.2.462 Unknown [id number] 2.16840.1.293975.3.579.2.462 Unknown [id number] 2.16.840.1.093322.3.579.2.462 Unknown [id number] 2.16.840.1.450623.3.579.2.462 Unknown [id number] 2.16.840.1.524963.3.579.2.462 Unknown [id number] 2.16.840.1.031332.3.579.2.462 Unknown [id number] 2.840.1.169152.3.579.2.462 Unknown [id number] 2.840.1.610556.3.579.2.462 Unknown [id number] 2.840.1.149812.3.579.2.462 Unknown [id number] 2.840.1.715801.3.579.2.462 Unknown [id number] 2.840.1.892893.3.579.2.462 Unknown [id number] 2.840.1.996200.3.579.2.462 Unknown [id number] 2.840.1.132216.3.579.2.462 Unknown [id number] 2.840.1.126708.3.579.2.462 Unknown [id number] 2.840.1.065567.3.579.2.462 Unknown [id number] 2.840.1.877048.3.579.2.462 Unknown [id number] 2.840.1.521663.3.579.2.462 Unknown [id number] 2.840.1.878387.3.579.2.462 Unknown [id number] 2.840.1.579497.3.579.2.462 Unknown [id number] 2.840.1.964801.3.579.2.462 Unknown [id number] 2.840.1.255882.3.579.2.462 Unknown [id number] 2..840.1.560338.3.579.2.462 Unknown [id number] 2.840.1.532411.3.579.2.462 Unknown [id number] 2.840.1.068316.3.579.2.462 Social History Date Type Detail Facility Start: 11-23-2020 End: 02-03-2025 Tobacco smoking status NHIS Never smoked tobacco [facility] Start: 09-06-2021 End: 12-03-2022 Alcohol intake Current non-drinker of alcohol (finding) [facility] Start: 1945 Sex Assigned At Not on file [facility] Start: 08-07-2021 End: 04-17-2022 Exposure to SARS-CoV-2 (event) Not sure [facility] Start: 12-06-2021 End: 05-30-2023 Tobacco smoking status NHIS Unknown if ever smoked [facility] Start: 01-10-2019 Spouse/ Signif icant Other [facility] Start: 1945 Sex Assigned At Male [facility] Work Phone: Tobacco smoking status No Smokin g Status Entered [facility] Start: 01-02-2022 End: 01-12-2022 Exposure to SARS-CoV-2 (event) Unable to assess [facility] Work Phone: Start: 11-23-2020 End: 04-06-2022 Tobacco use and exposure Smokeless tobacco non-user [facility] Work Phone: Start: 09-16-2013 Rare [facility] Start: 09-16-2013 None [facility] Start: 09-16-2013 Non-smoker [facility] Start: 11-19-2022 End: 12-03-2022 History of Social function [facility] Work Phone: Start: 11-19-2022 End: 12-03-2022 Tobacco use panel [facility] Work Phone: Adult Depression Screening Assessment 2 [facility] Work Phone: Start: 10-15-2024 End: 10-22-2024 Sex Male (finding) [facility] Medical Equipment Procedure Code Equipment Code Equipment [...] ABS FDA Start: 03-28-2018 FDA Start: 03-28-2018 ([id number]) ()[id number] FDA Start: 02-04-2023 ([id number]) ()[id number] FDA Start: 02-04-2023 ([id number]) [id number] FDA Start: 02-04-2023 FDA Start: 03-28-2018 [...] ABS FDA Start: 03-28-2018 FDA Start: 03-28-2018 Goals Date Patient Goal Desired Activity /State Functional Status Date Assessment Result Facility 02-11-2025 Functional status Bedrest [facility] Work Phone: 02-13-2023 Functional [facility] Work Phone: 02-05-2023 Functional status Chair [facility] Work Phone: 02-04-2023 Functional status Bedrest [facility] Work Phone: 01-26-2023 Functional status Chair mode [facility] Work Phone: 01-26-2023 Functional status With Assist of 2;Bedres t [facility] Work Phone: 01-25-2023 Functional status None [facility] Work Phone: 01-08-2023 Functional status Chair [facility] Work Phone: 07-11-2022 Functional status Ambulates [facility] Work Phone: 12-29-2021 Functional status Chair [facility] Work Phone: Mental Status Date Assessment Result Facility 02-11-2025 Cognitive function Voice/Name;To uch/Shaking;Light Pain;Deep Pain [facility] Work Phone: 02-02-2025 Cognitive function Level Of Cons ciousness Lethargic [facility] Work Phone: 02-02-2025 Cognitive function Voice/Name;Touch/Shaki ng [facility] Work Phone: 06-03-2023 Cognitive function Voice/Name [facility] Work Phone: 02-13-2023 Cognitive function Voice/Name [facility] Work Phone: 02-11-2023 Cognitive function Awake;Drowsy [facility] Work Phone: 02-10-2023 Cognitive function Awake;Appropr iate;Follows Commands;Drowsy [facility] Work Phone: 02-05-2023 Cognitive function Voice/Name [facility] Work Phone: 02-04-2023 Cognitive function Appropriate;Cooperativ e [facility] Work Phone: 01-26-2023 Cognitive function Voice/Name [facility] Work Phone: 01-21-2023 Cognitive function Level Of Cons ciousness Drowsy;Lethargic [facility] Work Phone: 01-08-2023 Cognitive function Voice/Name [facility] Work Phone: 01-04-2023 Cognitive function Voice/Name [facility] Work Phone: 07-11-2022 Cognitive function Voice/Name [facility] Work Phone: 07-10-2022 Cognitive function Appropriate;Cooperativ e [facility] Work Phone: 03-02-2022 Cognitive function Voice/Name [facility] Work Phone: 12-29-2021 Cognitive function Voice/Name [facility] Work Phone: 12-06-2021 Cognitive function Level Of Cons ciousness Awake;Alert;Appropriate [facility] Work Phone: Clinical Notes 10-25-2014 to 02-11-2025 Note Date & Type Note Facility 02-11-2025 Progress note Note Date/Time February 11, 2025 3:45pm [facility] Medical Records Department [address] [place] [address] Progress Note - Surgery 02/11/25 0839 MR#: [id number] Acct: [id number] Name: RICHARD ROY Rep #:[id number] : 1945 79 From: Meghana LOZA PCP: Kuldip Cosby ASSESSMENT SPECIALIST-C Status:ADM IN Location: [place] [address] Subjective Subjective He is drowsy. He reports no R groin pain, no new lower extremity pain. Objective Data Objective Data Vital Signs: Vital Signs Temp Pulse Resp BP Pulse Ox O2 Del Method O2 Flow Rate 97.5 F L 60 18 160/57 H 97 Nasal Cannula 1 02/11/25 04:17 02/11/25 06:25 02/11/25 04:17 02/11/25 06:25 02/11/25 04:30 02/11/25 08:13 02/11/25 04:30 Oxygen Flow Rate (L/min) 1 Oxygen Delivery Method Nasal Cannula Weight: 256 lb 9.889 oz Body Mass Index (BMI) 34.8 Intake & Output: Intake and Output for Last 24 Hours 02/09/25 02/10/25 02/11/25 23:59 23:59 23:59 Intake Total 1820 / 1820 1755 / 1755 785 / 785 Output Total 1500 / 2500 3650 / 3650 300 / 300 Balance 320 / -680 -1895 / -1895 485 / 485 Lab / Micro Data 02/10/25 05:47 02/10/25 05:47 Labs: Laboratory Results - last 24 hr 02/10/25 10:14: Vancomycin Trough 16.6 H 02/10/25 11:17: POC Glucose 156 H 02/10/25 13:04: Activated Clotting Time 205 H 02/10/25 13:44: Activated Clotting Time 222 H 02/10/25 17:20: POC Glucose 132 H 02/10/25 22:11: POC Glucose 135 H 02/11/25 06:13: POC Glucose 137 H 02/11/25 06:54: Estim Creat Clear Calc ASSESSMENT SPECIALIST Micro: Microbiology 02/05/25 Unknown Tissue - Toe Gram Stain - Final 02/05/25 Unknown Tissue - Toe Wound Culture - Final Staphylococcus simulans Staphylococcus caprae Meth. resistant Staph. aureus 02/05/25 Unknown Tissue - Toe Anaerobic Culture - Final No anaerobic bacteria isolated. 02/05/25 Unknown Tissue - Toe Gram Stain - Final 02/05/25 Unknown Tissue - Toe Wound Culture - Final No growth aerobically. 02/05/25 Unknown Tissue - Toe Anaerobic Culture - Final No growth in 5 days. 02/02/25 20:42 Blood Culture (Wb) - Right Wrist Blood Culture - Final No growth in 5 days. 02/02/25 19:56 Blood Culture (Wb) - Left Hand Blood Culture - Final No growth in 5 days. 02/03/25 18:00 Wound - Left Foot Gram Stain - Final 02/03/25 18:00 Wound - Left Foot Wound Culture - Final Meth. resistant Staph. aureus Enterobacter cloacae complex Corynebacterium striatum 02/03/25 18:00 Wound - Left Foot Anaerobic Culture - Final No anaerobic bacteria isolated. 02/05/25 00:05 Nasal Secretion MRSA (PCR) - Final 02/02/25 21:25 Urine, Catheterized Urine Culture - Final Culture exhibits no growth. 02/03/25 01:36 Mucosa - Nasopharyngeal Respiratory Panel (PCR) - Final 02/02/25 21:25 Urine, Clean Catch Legionella Antigen - Final 02/02/25 21:25 Urine, Clean Catch Streptococcus pneumoniae Antigen (M - Final Physical Exam Const alert, oriented x3 and no apparent distress General Appearance: cooperative and comfortable HEENT normocephalic, head/scalp atraumatic, hearing grossly normal bilaterally, external ears normal and external nose normal Eyes General Eye: normal appearance of both eyes Neck General: normal visual inspection Resp normal respiratory effort, no retractions and no use of accessory muscles Effort and Inspection: able to speak in complete sentences; Negative for labored, grunting, stridor or audible wheezes Extremity Extremity Narrative: L DP signal biphasic, L PT biphasic; L foot with wound dressings in place, minimally disturbed for pulse exam, wound not examined. R groin puncture site with dressing C/D/I, no ecchymosis/hematoma, soft to palpation Skin Trauma: no lacerations or abrasions Wounds: wounds noted Wound Narrative: L foot wound not examined, pictures in chart reviewed Neuro moves all extremities Speech: speech normal Psych mental status grossly normal Attitude: calm Speech: normal speech Assessment & Plan Assessment/Plan (1) Type 2 diabetes mellitus with foot ulcer: (2) PAD (peripheral artery disease): PLAN: Plan He is s/p angiogram with L PT and AT angioplasty 02/10/25. He tolerated the procedure well. R groin puncture site without hematoma or bleeding. Vascular exam stable. Plan to continue Plavix 75mg daily at discharge. OK for discharge from vascular perspective whenever otherwise medically ready, planning per primary team. Plan for outpatient follow-up in the office in 2-4 weeks from discharge. Charges/Coding Visit Charges Inpatient E&M: 44701 Subs Hosp L1 02/11/25 0845 <Electronically signed by Meghana LOZA> Cosigner Signature (if applicable): 02/11/25 1545 <Electronically signed by Aneesh Ac MD> CC: ~ Signed [facility] Work Phone: 1(921) 724-994107-31-2025 Progress note Author Kee Mejia [facility] Note Date/Time February 11, 2025 3:15 pm [facility] Medical Records Department [address] [place] [address] Progress Note 02/11/25 1339 MR#: [id number] Acct: [id number] Name: RICHARD ROY Rep #:[id number] : 1945 79 From: Kee Mejia DPM PCP: Kuldip Cosby ASSESSMENT SPECIALIST-C Status:ADM IN Location: [place] [address] Subjective Subjective Patient was seen today for follow up. He is sleeping sitting up in bed. Patient likely going to go back to nursing facility today. Objective Data Objective Data Vital Signs: Vital Signs Temp Pulse Resp BP Pulse Ox O2 Del Method O2 Flow Rate 98.7 F 60 16 153/65 H 95 Nasal Cannula 1 02/11/25 08:44 02/11/25 08:50 02/11/25 08:44 02/11/25 08:44 02/11/25 08:44 02/11/25 09:00 02/11/25 09:00 Oxygen Flow Rate (L/min) 1 Oxygen Delivery Method Nasal Cannula Weight: 116.4 kg Body Mass Index (BMI) 34.8 Intake & Output: Intake and Output for Last 24 Hours 02/09/25 02/10/25 02/11/25 23:59 23:59 23:59 Intake Total 1820 / 1820 1755 / 1755 835 / 835 Output Total 1500 / 2500 3650 / 3650 1150 / 1150 Balance 320 / -680 -1895 / -1895 -315 / -315 Lab / Micro Data 02/11/25 09:02 02/11/25 06:54 Labs: Laboratory Results - last 24 hr 02/10/25 13:04: Activated Clotting Time 205 H 02/10/25 13:44: Activated Clotting Time 222 H 02/10/25 17:20: POC Glucose 132 H 02/10/25 22:11: POC Glucose 135 H 02/11/25 06:13: POC Glucose 137 H 02/11/25 06:54: Sodium 145, Potassium 3.7, Chloride 109 H, Carbon Dioxide 22.1, Anion Gap 14, BUN 24 H, Creatinine 1.55 H, Estim Creat Clear Calc 52.57, Est GFR(MDRD) Non-Af 46 L, BUN/Creatinine Ratio 15.3, Glucose 155 H, Calcium 9.0 02/11/25 09:02: WBC 11.3 H, RBC 3.59 L, Hgb 9.9 L, Hct 31.3 L, MCV 87.2, MCH 27.6, MCHC 31.6 L, RDW Std Deviation 44.1 H, RDW Coeff of Nathaniel 13.7, Plt Count 308, MPV 9.1, Immature Gran % (Auto) 2.100 H, Neut % (Auto) 76.3 H, Lymph % (Auto) 9.9 L, Lea % (Auto) 7.1, Eos % (Auto) 4.1, Baso % (Auto) 0.5, Absolute Neuts (auto) 8.7 H, Absolute Lymphs (auto) 1.12, Nucleated RBC % 0 02/11/25 12:52: POC Glucose 220 H Micro: Microbiology 02/05/25 Unknown Tissue - Toe Gram Stain - Final 02/05/25 Unknown Tissue - Toe Wound Culture - Final Staphylococcus simulans Staphylococcus caprae Meth. resistant Staph. aureus 02/05/25 Unknown Tissue - Toe Anaerobic Culture - Final No anaerobic bacteria isolated. 02/05/25 Unknown Tissue - Toe Gram Stain - Final 02/05/25 Unknown Tissue - Toe Wound Culture - Final No growth aerobically. 02/05/25 Unknown Tissue - Toe Anaerobic Culture - Final No growth in 5 days. 02/02/25 20:42 Blood Culture (Wb) - Right Wrist Blood Culture - Final No growth in 5 days. 02/02/25 19:56 Blood Culture (Wb) - Left Hand Blood Culture - Final No growth in 5 days. 02/03/25 18:00 Wound - Left Foot Gram Stain - Final 02/03/25 18:00 Wound - Left Foot Wound Culture - Final Meth. resistant Staph. aureus Enterobacter cloacae complex Corynebacterium striatum 02/03/25 18:00 Wound - Left Foot Anaerobic Culture - Final No anaerobic bacteria isolated. 02/05/25 00:05 Nasal Secretion MRSA (PCR) - Final 02/02/25 21:25 Urine, Catheterized Urine Culture - Final Culture exhibits no growth. 02/03/25 01:36 Mucosa - Nasopharyngeal Respiratory Panel (PCR) - Final 02/02/25 21:25 Urine, Clean Catch Legionella Antigen - Final 02/02/25 21:25 Urine, Clean Catch Streptococcus pneumoniae Antigen (M - Final Physical Exam Const alert and no apparent distress Constitutional Narrative: s/p debridement 5th MTPJ, there is granular tissue as well as fibrotic tissue and coagulated blood, margins viable, it is down to and including bone, no evidence of acute ischemia, cellulitis improved, no maloder, no fluctunce, no crepitus, no further break down, CFT < 3 seconds to all toes. Assessment & Plan Assessment/Plan (1) Cellulitis of left lower limb: (2) Acute osteomyelitis of metatarsal bone of left foot: (3) Diabetes mellitus with diabetic polyneuropathy: (4) Type 2 diabetes mellitus with foot ulcer: PLAN: Plan Reviewed diagnostic data. s/p left foot 5th ray debridement on 02/05/2025. Patient remains on IV antibiotic therapy. Reviewed culture findings, clearance fragment left 5th metatarsal and toe with no growth. Infectious Disease on consult planning to switch patient to po doxycycline No weightbearing left foot. Keep offloaded at all times. Wound care left lateral foot wound: Ordered wound vac to help promote granulation tissue formation and wound contraction. SettinmmHg continuous.In meantime (until patient has wound vac applied by nursing): betadine gauze, cover with dry dressing, change daily. Plan is for patient to be discharged to nursing facility today - follow up with me in 1 week in office, sooner if needed. 02/11/255 <Electronically signed by Kee Mejia DPM> Kee Mejia DPM Cosigner Signature (if applicable): CC: ~ Signed [facility] Work Phone: 1(326) 155-810607-31-2025 Discharge summary Author Hugo Cervantes [facility] Note Date/Time February 11, 2025 2:52 pm [facility] Medical Records Department [address] [place] [address] Discharge Summary 02/11/25 1444 MR#: [id number] Acct: [id number] Name: RICHARD ROY Rep #:[id number] : 1945 79 From: Hugo hollis MD PCP: Kuldip Cosby Status:ADM IN Location: [place] [id number] Providers Date of Admission: 02/02/25 Primary Care Physician: AAYUSH Ross Consultations 02/03/25 01:20 Consult: Onc/Wound/account information clerk Routine Comment: Consult: Podiatry Routine Consulting Provider: Kee Mejia Reason for Consult: L diabetic foot wound/ulcer EMERGENT Consult: No Notified: Yes Date Notified: 02/02/25 Time Notified: 23:13 Method of Notification: Text 02/03/25 18:07 Consult: Vascular Surgery Routine Consulting Provider: Aneesh Ac Reason for Consult: PAD with ulcer left foot EMERGENT Consult: No Notified: Yes Date Notified: 02/03/25 Time Notified: 18:07 Method of Notification: Text 02/08/25 07:07 Consult: Infectious Disease Routine Consulting Provider: Smith Leija Reason for Consult: s/p 5th ray resection for infection/concern for osteo EMERGENT Consult: No Notified: Yes Date Notified: 02/08/25 Time Notified: 07:07 Method of Notification: Text Reason For Visit: PNA, L DIABETIC FOOT WOUND/ULCER Diagnosis Discharge Diagnosis (1) Cellulitis of left lower limb: Status: Acute Code(s): L03.116 - Cellulitis of left lower limb (2) Acute osteomyelitis of metatarsal bone of left foot: Status: Acute Code(s): M86.172 - Other acute osteomyelitis, left ankle and foot (3) Diabetes mellitus with diabetic polyneuropathy: Status: Acute Code(s): E11.42 - Type 2 diabetes mellitus with diabetic polyneuropathy (4) Type 2 diabetes mellitus with foot ulcer: Status: Acute Code(s): E11.621 - Type 2 diabetes mellitus with foot ulcer; L97.509 - Non-pressure chronic ulcer of other part of unspecified foot with unspecified severity Medications at Discharge Home Medications losartan 50 mg tablet 50 mg PO DAILY blood pressure 03/24/18 atorvastatin 40 mg tablet 40 mg PO QHS cholesterol 05/22/18 tamsulosin 0.4 mg capsule 0.4 mg PO QHS PROSTATE 03/02/22 cholecalciferol (vitamin D3) 1,250 mcg (50,000 unit) tablet 1,250 mcg PO MO SUPPLEMENT 01/21/23 metformin 1,000 mg tablet 1,000 mg PO BID DM 01/21/23 insulin glargine 100 unit/mL (3 mL) subcutaneous pen (Lantus Solostar U-100 Insulin) 15 unit (0.15 mL) subcut DAILY diabetes #15 mL 01/26/23 pantoprazole 40 mg tablet,delayed release 40 mg PO BID #60 tabs 02/05/23 sucralfate 1 gram tablet 1 g PO 0700,1100,1600 #90 tabs 02/05/23 melatonin 3 mg tablet 3 mg PO QHS Insomnia 02/10/23 memantine 10 mg tablet 10 mg PO BID #0 tabs 02/13/23 bisacodyl 10 mg rectal suppository 10 mg WV DAILY PRN constipation 05/30/23 loperamide 2 mg capsule (Anti-Diarrheal (loperamide)) 2 mg PO Q4H PRN loose stool 05/30/23 acetaminophen 325 mg tablet 650 mg PO .q12hrs PAIN AND FEVER 10/07/23 ferrous sulfate 325 mg (65 mg iron) tablet 325 mg PO DAILY 10/07/23 apixaban 5 mg tablet (Eliquis) 5 mg PO BID #60 tabs 03/03/24 paroxetine HCl 30 mg tablet 30 mg PO QDAY 04/07/24 ipratropium 0.5 mg-albuterol 3 mg (2.5 mg base)/3 mL nebulization soln 3 ml inhalation Q4H PRN shortness of breath 02/02/25 metoprolol succinate 25 mg capsule sprinkle, ext. release 24 hr (Kapspargo Sprinkle) 25 mg PO DAILY 02/02/25 clopidogrel 75 mg tablet 75 mg PO DAILY 90 days #0 tabs 02/11/25 doxycycline monohydrate 100 mg capsule 100 mg PO BID 5 days #0 caps 02/11/25 Hospital Course Operations - (Left fifth ray resection) Procedures - (CAMILLE AGUDELO, is a 89 F who presents with a fall on the night of the . Patient fell with her back hitting windowpane. On the floor she was unable to get up and was sent to the emergency room. She underwent hip x-rays that showedno fracture. Pelvic CT did show an acute L5 vertebral fracture w) Summary of Care Provided Minutes Spent on Discharge: 33 Hospital Course: Per HPI: The patient is a 79 y/o M w/ PMHx: BPH with obstructive pathology, CKD stage IIIa, AAA s/p repair, Hx COVID-19, Hx GI bleed, Valvular heart disease s/pAVR, HTN, HLD, VTE w/ Hx DVT/PE, Diabetes mellitus type II, Obesity, PAF w/ prior noted mobitz type II s/p pacemaker, Chronic anemia/iron deficiency anemia,Dementia unclear type with unclear behavioral disturbance history who presents to the [facility] ED on 02/02/2025 with history of recent onset of cough, fatigue and malaise as well as fevers with altered mental status brought in by his and son noted that he been behaving his normal baseline the day prior at skilled facility however she was called this evening secondary to his worsening status prompting ED evaluation to be cautious. Patient baseline is typically alert andoriented to person and place. In the ED upon arrival patient was noted to have mild erythema to the left dorsal foot as well in addition to a small chronic lateral foot ulceration/wound which reports has been followed by wound careat the facility. Workup in the ED included T101.4, heart rate 93, BP 133/64, respiratory rate 31, initially 98% on a 15 L nonrebreather with most recent repeat vitals T101.4 axillary, heart rate 85, BP 114/58, respiratory rate 27, 92% on room air, CBC with WC 13.9, hemoglobin 10.9, MCV 85, platelet 203 with left shift and lymphopenia, coags with PT 17.3, INR 1.4, PTT 34, CMP with BUN/creatinine 18/1.04, GFR 74, glucose 195, lactic acid 3.1, hepatic profile not marked appearing, urinalysis with specific gravity 1.015, protein 30, glucose 250, ketone negative, occult blood 25, nitrite negative, leukocyte esterase negative with urine RBCs 5-10, urine WBCs 5-10 with 1+ urine bacteria, chest x-ray with possible left midlung consolidative opacity concerning for pneumonia, CT of the brain with no acute intracranial findings, plain film of the left foot with no acute osseous findings. In the ED patient ministered 1 L normal saline, Tylenol 1000 mg p.o. x 1, Toradol 50 mg IV x 1, IV vancomycin andIV Zosyn in addition to magnesium 4 g IV x 1. Hospital Course: 1. Sepsis secondary left-sided pneumonia as well as diabetic foot ulcer on the left lateral foot status post fifth ray resection on 02/05/2025 with aortogram and angioplasty of the left posterior and anterior tibial artery on 02/10/2025/ANTHONY?79-year-old male with dementia presented to the hospital with sepsis from a left-sided pneumonia and left lower extremity cellulitis with possible osteomyelitis. Surgical cultures demonstrated MRSA and no sputum was obtained though his respiratory status has improved with his broad-spectrum antibiotics. Podiatry was consulted and recommended an MRI as they were concerned for osteomyelitis and they proceeded with left fifth ray resection andthe MRI was read as no osteomyelitis. Infectious disease was consulted ultimately recommending 5 more days of p.o. doxycycline 100 mg twice daily afterdischarge. Given poor circulation despite having an JOSTIN of 0.88 on the right and an JOSTIN of 1.05 on the left, vascular surgery was consulted and performed an angiogram eviscerating and need for angioplasty to the left anterior and posterior tibial artery. Ultimately podiatry would like for him to have [facility] the [facility]. His hospitalization was complicated by an ANTHONY as his creatinine peaked at 1.83 and he was started on IV fluids, this did lead to some edema so the fluid rate had to be cut down to about 50 cc/h and creatinine today on the day of discharge is 1.55. It been discussed with his about discharge to SNF and she had expressed understanding of the risk benefits of going [facility] to the [facility] and would like to go when able. He will need to be on Plavix 75 mg p.o. daily for 3 weeks on top of his home Eliquis for his paroxysmal A- fib. He is to be nonweightbearing on his left lower extremity per podiatry, and he will need to follow-up with podiatry in a week and with vascular surgery within the next 2 to 4 weeks. 2. Paroxysmal A-fib, history of AAA status post repair in 2006, essential hypertension, hyperlipidemia, history of sick sinus syndrome status post pacemaker placement, type 2 diabetes, GERD with a history of GI bleed, dementia,anxiety, depression, BPH with obstruction, iron deficiency anemia are all chronic medical conditions which complicate his care. His home medications werecontinued where appropriate Weight / BMI Weight Weight: 256 lb 9.889 oz Body Mass Index (BMI) 34.8 ABG / Lab / Microbiology Data 02/11/25 09:02 02/11/25 06:54 Laboratory: Laboratory Results - last 24 hr 02/10/25 13:04: Activated Clotting Time 205 H 02/10/25 13:44: Activated Clotting Time 222 H 02/10/25 17:20: POC Glucose 132 H 02/10/25 22:11: POC Glucose 135 H 02/11/25 06:13: POC Glucose 137 H 02/11/25 06:54: WBC Cancelled, Corrected WBC Cancelled, RBC Cancelled, Hgb Cancelled, Hct Cancelled, MCV Cancelled, MCH Cancelled, MCHC Cancelled, RDW Std Deviation Cancelled, RDW Coeff of Nathaniel Cancelled, Plt Count Cancelled, MPV Cancelled, Immature Gran % (Auto) Cancelled, Neut % (Auto) Cancelled, Lymph % (Auto) Cancelled, Lea % (Auto) Cancelled, Eos % (Auto) Cancelled, Baso % (Auto)Cancelled, Absolute Neuts (auto) Cancelled, Absolute Lymphs (auto) Cancelled, Total Counted Cancelled, Neutrophils % (Manual) Cancelled, Band Neutrophils % Cancelled, Lymphocytes % (Manual) Cancelled, Monocytes % (Manual) Cancelled, Eosinophils % (Manual) Cancelled, Basophils % (Manual) Cancelled, Metamyelocytes% Cancelled, Myelocytes % Cancelled, Promyelocytes % Cancelled, Blast Cells % Cancelled, Plasma Cell % (Manual) Cancelled, Other Cells % Cancelled, Nucleated RBC % Cancelled, Nucleated RBCs/100 WBC Cancelled, Differential Comment Cancelled, Diff Path Review Cancelled, Hypersegmented Neuts Cancelled, Atypical Lymphocytes Cancelled, Reactive Lymphocytes Cancelled, Smudge Cells Cancelled, Toxic Granulation Cancelled, Toxic Vacuolation Cancelled, Dohle Bodies Cancelled, Liseth Rods Cancelled, Platelet Estimate Cancelled, Plt Morphology Comment Cancelled, RBC Morphology Cancelled 02/11/25 06:54: RBC Morphology Cancelled, Polychromasia Cancelled, HypochromasiaCancelled, Basophilic Stippling Cancelled, Anisocytosis Cancelled, Microcytosis Cancelled, Macrocytosis Cancelled, Spherocytes Cancelled, Sickle Cells Cancelled, Target Cells Cancelled, Tear Drop Cells Cancelled, Ovalocytes Cancelled, Stomatocytes Cancelled, Street[place] Bodies Cancelled, Kelly Cells Cancelled, Bite Cells Cancelled, Crenated Cell Cancelled, Acanthocytes (Spur) Cancelled, Rouleaux Cancelled, Schistocytes Cancelled, Sodium 145, Potassium 3.7, Chloride 109 H, Carbon Dioxide 22.1, Anion Gap 14, BUN 24 H, Creatinine 1.55 H, Estim Creat Clear Calc 52.57, Est GFR (MDRD) Non-Af 46 L, BUN/CreatinineRatio 15.3, Glucose 155 H, Calcium 9.0 02/11/25 09:02: WBC 11.3 H, RBC 3.59 L, Hgb 9.9 L, Hct 31.3 L, MCV 87.2, MCH 27.6, MCHC 31.6 L, RDW Std Deviation 44.1 H, RDW Coeff of Nathaniel 13.7, Plt Count 308, MPV 9.1, Immature Gran % (Auto) 2.100 H, Neut % (Auto) 76.3 H, Lymph % (Auto) 9.9 L, Lea % (Auto) 7.1, Eos % (Auto) 4.1, Baso % (Auto) 0.5, Absolute Neuts (auto) 8.7 H, Absolute Lymphs (auto) 1.12, Nucleated RBC % 0 02/11/25 12:52: POC Glucose 220 H Microbiology: Microbiology 02/05/25 Unknown Tissue - Toe Gram Stain - Final 02/05/25 Unknown Tissue - Toe Wound Culture - Final Staphylococcus simulans Staphylococcus caprae Meth. resistant Staph. aureus 02/05/25 Unknown Tissue - Toe Anaerobic Culture - Final No anaerobic bacteria isolated. 02/05/25 Unknown Tissue - Toe Gram Stain - Final 02/05/25 Unknown Tissue - Toe Wound Culture - Final No growth aerobically. 02/05/25 Unknown Tissue - Toe Anaerobic Culture - Final No growth in 5 days. 02/02/25 20:42 Blood Culture (Wb) - Right Wrist Blood Culture - Final No growth in 5 days. 02/02/25 19:56 Blood Culture (Wb) - Left Hand Blood Culture - Final No growth in 5 days. 02/03/25 18:00 Wound - Left Foot Gram Stain - Final 02/03/25 18:00 Wound - Left Foot Wound Culture - Final Meth. resistant Staph. aureus Enterobacter cloacae complex Corynebacterium striatum 02/03/25 18:00 Wound - Left Foot Anaerobic Culture - Final No anaerobic bacteria isolated. 02/05/25 00:05 Nasal Secretion MRSA (PCR) - Final 02/02/25 21:25 Urine, Catheterized Urine Culture - Final Culture exhibits no growth. 02/03/25 01:36 Mucosa - Nasopharyngeal Respiratory Panel (PCR) - Final 02/02/25 21:25 Urine, Clean Catch Legionella Antigen - Final 02/02/25 21:25 Urine, Clean Catch Streptococcus pneumoniae Antigen (M - Final D/C Instructions DC O2, CPAP, BIPAP Needs Home O2 Discharge instructions: No Meaningful Use Info Meaningful Use Meaningful Use Diagnoses (Choose all that apply): None applicable Discharge Plan Admission Admit Date/Time: 02/02/25 23:12 Attending Provider: Hugo Cervantes Primary Care Provider: Kuldip Cosby Consulting Providers: Kee Mejia; Karen Aly; Aneesh Ac; Smith Leija Discharge Orders/Prescriptions Prescriptions: New clopidogrel 75 mg Tablet 75 mg PO DAILY 90 Days Qty: 0 0RF doxycycline monohydrate 100 mg Capsule 100 mg PO BID 5 Days Qty: 0 0RF Continued ferrous sulfate 325 mg (65 mg iron) tablet 325 mg PO DAILY paroxetine HCl 30 mg tablet 30 mg PO QDAY losartan 50 MG tablet 50 mg PO DAILY atorvastatin 40 MG tablet 40 mg PO QHS tamsulosin 0.4 mg capsule 0.4 mg PO QHS Patient Comments: TAKE 1 CAPSULE BY MOUTH EVERYDAY AT BEDTIME sucralfate 1 gram Tablet 1 g PO 0700,1100,1600 Qty: 90 2RF pantoprazole 40 mg tablet,delayed release (DR/EC) 40 mg PO BID Qty: 60 2RF melatonin 3 mg Tablet 3 mg PO QHS Patient Comments: PRN PER HALFWAY MAR. memantine 10 mg Tablet 10 mg PO BID Qty: 0 0RF acetaminophen 325 mg tablet 650 mg PO .q12hrs Patient Comments: PRN PER HALFWAY MAR bisacodyl 10 mg suppository 10 mg WV DAILY PRN (Reason: constipation) loperamide [Anti-Diarrheal (loperamide)] 2 mg capsule 2 mg PO Q4H PRN (Reason: loose stool) Rx Instructions: administer after each loose stool until symptoms controlled; do not exceed 8 mg per 24 hrs cholecalciferol (vitamin D3) 1,250 mcg (50,000 unit) tablet 1,250 mcg PO MO metformin 1,000 mg tablet 1,000 mg PO BID insulin glargine [Lantus Solostar U-100 Insulin] 100 UNITS/ML insulin pen 15 unit subcut DAILY Qty: 15 0RF ipratropium-albuterol 0.5 mg-3 mg(2.5 mg base)/3 mL solution for nebulization 3 ml inhalation Q4H PRN (Reason: shortness of breath) Patient Comments: [NO ORIGINAL SIG] Kapspargo Sprinkle 25 mg capsule,sprinkle,ER 24hr 25 mg PO DAILY Eliquis 5 mg tablet 5 mg PO BID Qty: 60 11RF Referrals / Follow Up: Luis Caldera MD [Non-Staff] - Aneesh Ac MD [Med Staff - Active Staff] - Within 1 Month Kee Mejia DPM [Med Staff - Active Staff] - Within 1 Week Kuldip Cosby NP-C [Primary Care Provider] - Disposition Disposition (needs filled in before D/C Order can be placed): [facility] Facility Charges/Coding Visit Charges Inpatient E&M: 13358 Disch Hosp >30min 02/11/25 1452 <Electronically signed by Hugo Cervantes MD> Cosigner Signature (if applicable): CC: Dr. Hugo Cervantes MD; Kuldip Cosby~ Signed [facility] Work Phone: [phone]) 923-380407-31-2025 Discharge summary Author Hugo Cervantes [facility] Note Date/Time February 11, 2025 2:23 pm [facility] Medical Records Department [address] [place] [address] Transfer to [facility] MR#: [id number] Acct: [id number] Name: RICHARD ROY Rep #:[id number] : 1945 79 From: Hugo hollis MD PCP: Kuldip Cosby Status:ADM IN Certification of patient admission REQUIRED AT TIME OF ADMISSION. I CERTIFY THAT POST-HOSPITAL ECF SERVICES ARE REQUIRED TO BE GIVEN ON AN IN-PATIENT BASIS BECAUSE OF THE ABOVE NAMED PATIENT'S NEED FOR HALFWAY CARE ON A CONTINUING BASIS FOR THE CONDITION(S) FOR WHICH HE/SHE WAS RECEIVING IN-PATIENT HOSPITAL SERVICES PRIOR TO HIS/HER TRANSFER TO THE [facility]. 02/11/25 1423<Electronically signed by Hugo Cervantes MD> Diet Diet Order/Speech Therapy: INPATIENT Hospital Diet / Speech Therapy Order(s) 02/10/25 17:06 Carb [Diet: Carbohydrate Controlled] Dietary Modifications:: No Added Salt Type of Dietary Supplement:: Luis Diet Comments: luis with breakfast and dinner Speech Therapy Comments: Direct sup, family ok to supervise, assist feeding as needed Routine Orders/Code Status Routine Lab Work: CBC and BMP Code Status: DNRCC-A DC O2, CPAP, BIPAP needs Home O2 Discharge instructions: No Wound(s) L Foor: Wound Type: Neuropathic/Diabetic Foot Ulcer left lateral foot: Wound Type: Neuropathic/Diabetic Foot Ulcer Dressing Change: betadine gauze Therapies Weight Bearing: Non weight bearing Extremity Affected:: Left Lower Physical Therapy: Eval and Treat Occupational Therapy: Eval and Treat Speech Therapy: Eval and Treat Problem/Diagnosis (1) Cellulitis of left lower limb: Status: Acute Code(s): L03.116 - Cellulitis of left lower limb (2) Acute osteomyelitis of metatarsal bone of left foot: Status: Acute Code(s): M86.172 - Other acute osteomyelitis, left ankle and foot (3) Diabetes mellitus with diabetic polyneuropathy: Status: Acute Code(s): E11.42 - Type 2 diabetes mellitus with diabetic polyneuropathy (4) Type 2 diabetes mellitus with foot ulcer: Status: Acute Code(s): E11.621 - Type 2 diabetes mellitus with foot ulcer; L97.509 - Non-pressure chronic ulcer of other part of unspecified foot with unspecified severity Plan 1. Sepsis secondary to left sided pneumonia as well as diabetic foot ulcer on the left status post left fifth ray resection 02/05/2025 and angiogram with angioplasty of the left posterior and anterior tibial artery on 02/10/2025/ANTHONY ? Continue with broad-spectrum antibiotics ? Appreciate podiatry's assistance ? Will wean oxygen as able ? Wound cultures from the are showing Enterobacter, corynebacterium, and MRSA ? Surgical cultures with MRSA, and other staph species, appreciate infectious disease assistance ? MRI was read as negative for osteomyelitis ? JOSTIN on the right is 0.88 with a left JOSTIN of 1.05, podiatry is consulted vascular surgery, plan for angiogram today ? Creatinine has been at 1.83, will start him on IV fluids as it does not appearthat he is obtaining significant p.o. intake. Appreciate speech therapy. Baseline creatinine is 1.1, he is edematous so we will decrease him to 50 cc/h ? Plan to discharge to SNF potentially on oral antibiotics pending ID's evaluation today 2. Paroxysmal A-fib/history of AAA status post repair 2006/essential HTN/HLD/history of sick sinus syndrome status post pacemaker placement ? Continue with his home blood pressure medications ? Blood pressures appear stable ? Continue with cholesterol medications ? Can resume his home Eliquis ? Echo on 02/12/2023 with an EF of 55 to 60% with mild MV insufficiency, he does have a history of aortic valve replacement 3. DM2 ? Hold his home oral medications ? Continue with insulin ? Accu-Cheks ACHS ? Continue with sliding scale insulin ? Will monitor and make adjustments as necessary 4. GERD with a history of GI bleed ? He had been transitioned from Coumadin to Eliquis ? Continue with PPI and Carafate 5. Dementia/anxiety/depression ? Stable, his dementia may be a little bit worse secondary to the infection ? Continue with his home medications 6. BPH with obstruction ? Continue with his Flomax ? Stable 7. Iron deficiency anemia ? Stable ? Continue to monitor ? Continue with iron supplementation DVT: Eliquis Allergies/Procedures Done in Hospital Allergies propofol Adverse Reaction (Verified 02/02/25 19:42) Other GETS AGGRESSIVE Type of Care/Length of Stay Estimated LOS: More Than 30 Days Type of Care Needed: Skilled Rehab Potential: Fair Prognosis: Fair Additional Orders/Day of Discharge Day of Discharge: 02/11/25 Dietary and Speech Recommendations Dietitian Recommendations/Changes: Continue consistent carbohydrate diet with noadded salt; consistency/texture adjustments as indicated per MEDICAL PHYSICIST. Continue Luis with breakfast and dinner to promote wound healing. Discharge Plan Admission Admit Date/Time: 02/02/25 23:12 Attending Provider: Hugo Cervantes Primary Care Provider: Kuldip Cosby Consulting Providers: Kee Mejia; Karen Aly; Aneesh Ac; Smith Leija Discharge Orders/Prescriptions Prescriptions: New clopidogrel 75 mg Tablet 75 mg PO DAILY 90 Days Qty: 0 0RF doxycycline monohydrate 100 mg Capsule 100 mg PO BID 5 Days Qty: 0 0RF Continued ferrous sulfate 325 mg (65 mg iron) tablet 325 mg PO DAILY paroxetine HCl 30 mg tablet 30 mg PO QDAY losartan 50 MG tablet 50 mg PO DAILY atorvastatin 40 MG tablet 40 mg PO QHS tamsulosin 0.4 mg capsule 0.4 mg PO QHS Patient Comments: TAKE 1 CAPSULE BY MOUTH EVERYDAY AT BEDTIME sucralfate 1 gram Tablet 1 g PO 0700,1100,1600 Qty: 90 2RF pantoprazole 40 mg tablet,delayed release (DR/EC) 40 mg PO BID Qty: 60 2RF melatonin 3 mg Tablet 3 mg PO QHS Patient Comments: PRN PER HALFWAY MAR. memantine 10 mg Tablet 10 mg PO BID Qty: 0 0RF acetaminophen 325 mg tablet 650 mg PO .q12hrs Patient Comments: PRN PER HALFWAY MAR bisacodyl 10 mg suppository 10 mg WV DAILY PRN (Reason: constipation) loperamide [Anti-Diarrheal (loperamide)] 2 mg capsule 2 mg PO Q4H PRN (Reason: loose stool) Rx Instructions: administer after each loose stool until symptoms controlled; do not exceed 8 mg per 24 hrs cholecalciferol (vitamin D3) 1,250 mcg (50,000 unit) tablet 1,250 mcg PO MO metformin 1,000 mg tablet 1,000 mg PO BID insulin glargine [Lantus Solostar U-100 Insulin] 100 UNITS/ML insulin pen 15 unit subcut DAILY Qty: 15 0RF ipratropium-albuterol 0.5 mg-3 mg(2.5 mg base)/3 mL solution for nebulization 3 ml inhalation Q4H PRN (Reason: shortness of breath) Patient Comments: [NO ORIGINAL SIG] Kapspargo Sprinkle 25 mg capsule,sprinkle,ER 24hr 25 mg PO DAILY Eliquis 5 mg tablet 5 mg PO BID Qty: 60 11RF Referrals / Follow Up: Luis Caldera MD [Non-Staff] - Aneesh Ac MD [Med Staff - Active Staff] - Within 1 Month Kee Mejia DPM [Med Staff - Active Staff] - Within 1 Week Kuldip Cosby NP-C [Primary Care Provider] - Disposition Disposition (needs filled in before D/C Order can be placed): [facility] Facility 02/11/25 1423 <Electronically signed by Hugo Cervantes MD> Cosigner Signature (if applicable): CC: DPM Dr. Kee Mejia; Dr. Karen Aly MD; Dr. Aneesh Ac MD; Dr. Smith Leija MD; Kuldip Cosby ~ [facility] Work Phone: [phone]) 144-719507-31-2025 [facility]07-31-2025 Progress note Author [facility] Note Date/Time February 11, 2025 10:2 8am [facility] Medical Records Department [address] [place] [address] Progress Note - Infect Disease 02/11/25 1027 MR#: [id number] Acct: [id number] Name: RICHARD ROY Rep #:[id number] : 1945 79 From: Smith huang MD PCP: Kuldip Cosby Status:ADM IN Location: [place] [address] Physical Exam Narrative Angioplasty yesterday, feeling ok, no fever Const alert and no apparent distress General Appearance: cooperative Resp normal air movement and clear to auscultation bilaterally Cardio regular rate and regular rhythm GI soft to palpation, non-tender and non-distended Skin no rashes or lesions noted ID ID: Route of nutrition/ use of supplements: [] Nutritional Intake: [] IV Site: [] Rodrigues Catheter: [] Assessment & Plan Assessment/Plan (1) Acute osteomyelitis of metatarsal bone of left foot: PLAN: Taken to OR 02/05/[address] Mejia for L 5th toe amp and debridement L 5th metatarsal. Clearance cx neg so far. Surg cx with CoNS x2, MRSA. 02/03/25 wound cx with MRSA, enterobacter, and corynebacter. Will change to po doxy, recommend 5 more days abx Will follow as needed, d/w Dr. Cervantes (2) Diabetes mellitus with diabetic polyneuropathy: (3) PAD (peripheral artery disease): 02/11/25 1028 <Electronically signed by Smith Leija MD> Cosigner Signature (if applicable): CC: ~ Signed [facility] Work Phone: [phone]) 667-146307-31-2025 Progress note Author Hugo Cervantes [facility] Note Date/Time February 11, 2025 9:30 am [facility] Medical Records Department [address] [place] [address] Progress Note - Hospitalist 02/11/25921 MR#: [id number] Acct: [id number] Name: RICHARD ROY Rep #:[id number] : 1945 79 From: Hugo hollis MD PCP: Kuldip Cosby ASSESSMENT SPECIALIST-C Status:ADM IN Location: [place] [address] Subjective Subjective No issues overnight, had his angiogram with multiple ballooning's yesterday by vascular surgery Objective Data Objective Data Vital Signs: Vital Signs Temp Pulse Resp BP Pulse Ox O2 Del Method O2 Flow Rate 98.7 F 60 16 153/65 H 95 Nasal Cannula 1 02/11/25 08:44 02/11/25 08:50 02/11/25 08:44 02/11/25 08:44 02/11/25 08:44 02/11/25 08:44 02/11/25 08:44 Oxygen Flow Rate (L/min) 1 Oxygen Delivery Method Nasal Cannula Weight: 256 lb 9.889 oz Body Mass Index (BMI) 34.8 Intake & Output: Intake and Output for Last 24 Hours 02/10/25 02/11/25 02/12/25 03:59 03:59 03:59 Intake Total 1820 / 1820 1705 / 1705 785 / 785 Output Total 2500 / 2500 2650 / 2650 300 / 300 Balance -680 / -680 -945 / -945 485 / 485 Lab / Micro Data 02/11/25 09:02 02/11/25 06:54 Labs: Laboratory Results - last 24 hr 02/10/25 10:14: Vancomycin Trough 16.6 H 02/10/25 11:17: POC Glucose 156 H 02/10/25 13:04: Activated Clotting Time 205 H 02/10/25 13:44: Activated Clotting Time 222 H 02/10/25 17:20: POC Glucose 132 H 02/10/25 22:11: POC Glucose 135 H 02/11/25 06:13: POC Glucose 137 H 02/11/25 06:54: Sodium 145, Potassium 3.7, Chloride 109 H, Carbon Dioxide 22.1, Anion Gap 14, BUN 24 H, Creatinine 1.55 H, Estim Creat Clear Calc 52.57, Est GFR(MDRD) Non-Af 46 L, BUN/Creatinine Ratio 15.3, Glucose 155 H, Calcium 9.0 02/11/25 09:02: WBC 11.3 H, RBC 3.59 L, Hgb 9.9 L, Hct 31.3 L, MCV 87.2, MCH 27.6, MCHC 31.6 L, RDW Std Deviation 44.1 H, RDW Coeff of Nathaniel 13.7, Plt Count 308, MPV 9.1, Immature Gran % (Auto) 2.100 H, Neut % (Auto) 76.3 H, Lymph % (Auto) 9.9 L, Lea % (Auto) 7.1, Eos % (Auto) 4.1, Baso % (Auto) 0.5, Absolute Neuts (auto) 8.7 H, Absolute Lymphs (auto) 1.12, Nucleated RBC % 0 Micro: Microbiology 02/05/25 Unknown Tissue - Toe Gram Stain - Final 02/05/25 Unknown Tissue - Toe Wound Culture - Final Staphylococcus simulans Staphylococcus caprae Meth. resistant Staph. aureus 02/05/25 Unknown Tissue - Toe Anaerobic Culture - Final No anaerobic bacteria isolated. 02/05/25 Unknown Tissue - Toe Gram Stain - Final 02/05/25 Unknown Tissue - Toe Wound Culture - Final No growth aerobically. 02/05/25 Unknown Tissue - Toe Anaerobic Culture - Final No growth in 5 days. 02/02/25 20:42 Blood Culture (Wb) - Right Wrist Blood Culture - Final No growth in 5 days. 02/02/25 19:56 Blood Culture (Wb) - Left Hand Blood Culture - Final No growth in 5 days. 02/03/25 18:00 Wound - Left Foot Gram Stain - Final 02/03/25 18:00 Wound - Left Foot Wound Culture - Final Meth. resistant Staph. aureus Enterobacter cloacae complex Corynebacterium striatum 02/03/25 18:00 Wound - Left Foot Anaerobic Culture - Final No anaerobic bacteria isolated. 02/05/25 00:05 Nasal Secretion MRSA (PCR) - Final 02/02/25 21:25 Urine, Catheterized Urine Culture - Final Culture exhibits no growth. 02/03/25 01:36 Mucosa - Nasopharyngeal Respiratory Panel (PCR) - Final 02/02/25 21:25 Urine, Clean Catch Legionella Antigen - Final 02/02/25 21:25 Urine, Clean Catch Streptococcus pneumoniae Antigen (M - Final Physical Exam Narrative General: Alert, Oriented x1-2, Cooperative, No apparent distress HEENT: Atraumatic, PERRLA, EOMI, Normocephalic Oral: Moist Mucosa Neck: Supple, No JVD Lungs: Diminished, Normal air movement, No rhonchi, No wheeze, No rales Cardiovascular: Regular rate, Regular Rhythm, Normal S1, Normal S2, No murmurs Abdomen: Soft, Non Tender, Non-Distended, No Hepato-splenomegaly Extremities: Edema, Capillary Refill Less than 3 Seconds Skin: Left lower extremity wound dressing intact Musculoskeletal: No Tenderness to Palpation of Joints or Extremities Neurological: No focal neurological deficits, moves all extremities Psych/Mental Status: Normal affect Assessment & Plan Assessment/Plan (1) Pneumonia: PLAN: Plan 1. Sepsis secondary to left sided pneumonia as well as diabetic foot ulcer on the left status post left fifth ray resection 02/05/2025/ANTHONY ? Continue with broad-spectrum antibiotics ? Appreciate podiatry's assistance ? Will wean oxygen as able ? Wound cultures from the are showing Enterobacter, corynebacterium, and MRSA ? Surgical cultures with MRSA, and other staph species, appreciate infectious disease assistance ? MRI was read as negative for osteomyelitis ? JOSTIN on the right is 0.88 with a left JOSTIN of 1.05, podiatry is consulted vascular surgery, plan for angiogram today ? Creatinine has been at 1.83, will start him on IV fluids as it does not appearthat he is obtaining significant p.o. intake. Appreciate speech therapy. Baseline creatinine is 1.1, he is edematous so we will decrease him to 50 cc/h ? Plan to discharge to SNF potentially on oral antibiotics pending ID's evaluation today 2. Paroxysmal A-fib/history of AAA status post repair 2006/essential HTN/HLD/history of sick sinus syndrome status post pacemaker placement ? Continue with his home blood pressure medications ? Blood pressures appear stable ? Continue with cholesterol medications ? Can resume his home Eliquis ? Echo on 02/12/2023 with an EF of 55 to 60% with mild MV insufficiency, he does have a history of aortic valve replacement 3. DM2 ? Hold his home oral medications ? Continue with insulin ? Accu-Cheks ACHS ? Continue with sliding scale insulin ? Will monitor and make adjustments as necessary 4. GERD with a history of GI bleed ? He had been transitioned from Coumadin to Eliquis ? Continue with PPI and Carafate 5. Dementia/anxiety/depression ? Stable, his dementia may be a little bit worse secondary to the infection ? Continue with his home medications 6. BPH with obstruction ? Continue with his Flomax ? Stable 7. Iron deficiency anemia ? Stable ? Continue to monitor ? Continue with iron supplementation DVT: Eliquis Charges/Coding Visit Charges Inpatient E&M: 05412 Subs Hosp L2 02/11/25 0930 <Electronically signed by Hugo Cervantes MD> Aracelisigner Signature (if applicable): CC: ~ Signed [facility] Work Phone: [phone]) 670-791607-30-2025 Procedure [facility] 02-10-2025 Consult note Author Crys Carvajal [facility] Note Date/Time February 10, 2025 12:[address] [facility] Medical Records Department [address] [place] [address] Pharmacokinetic/Renal -Consult 02/10/25 1203 MR#: [id number] Acct: [id number] Name: RICHARD ROY Rep #:[id number] : 1945 79 From: Crys Carvajal PCP: Kuldip Cosby ASSESSMENT SPECIALISTLisaC Status:ADM IN Location: [place] [address] Consult Antibiotic Management Pharmacy has been consulted to manage selected antibiotic: Vancomycin Type of Intervention Type of Consult: Follow-up Labs Labs: Sodium 142 mmol/L (133-145) 02/10/25 05:47 Potassium 3.7 mmol/L (3.3-5.1) 02/10/25 05:47 Chloride 108 mmol/L (98-108) 02/10/25 05:47 Carbon Dioxide 23.0 mmol/L (21.0-32.0) 02/10/25 05:47 Anion Gap 12 (5-15) 02/10/25 05:47 BUN 28 mg/dL (4-19) H 02/10/25 05:47 Creatinine 1.72 mg/dL (0.70-1.20) H 02/10/25 05:47 Est GFR (MDRD) Non-Af 40 (>60) L 02/10/25 05:47 BUN/Creatinine Ratio 16.2 RATIO (10-20) 02/10/25 05:47 Glucose 161 mg/dL (70-99) H 02/10/25 05:47 Vancomycin Trough 16.6 ug/mL (5.0-15.0) H 02/10/25 10:14 Random Vancomycin 17.6 ug/mL (0.0-15.0) H 02/07/25 05:46 Microbiology Microbiology: Microbiology 02/05/25 Unknown Tissue - Toe Gram Stain - Final 02/05/25 Unknown Tissue - Toe Wound Culture - Final Staphylococcus simulans Staphylococcus caprae Meth. resistant Staph. aureus 02/05/25 Unknown Tissue - Toe Anaerobic Culture - Final No anaerobic bacteria isolated. 02/05/25 Unknown Tissue - Toe Gram Stain - Final 02/05/25 Unknown Tissue - Toe Wound Culture - Final No growth aerobically. 02/05/25 Unknown Tissue - Toe Anaerobic Culture - Final No growth in 5 days. 02/02/25 20:42 Blood Culture (Wb) - Right Wrist Blood Culture - Final No growth in 5 days. 02/02/25 19:56 Blood Culture (Wb) - Left Hand Blood Culture - Final No growth in 5 days. 02/03/25 18:00 Wound - Left Foot Gram Stain - Final 02/03/25 18:00 Wound - Left Foot Wound Culture - Final Meth. resistant Staph. aureus Enterobacter cloacae complex Corynebacterium striatum 02/03/25 18:00 Wound - Left Foot Anaerobic Culture - Final No anaerobic bacteria isolated. 02/05/25 00:05 Nasal Secretion MRSA (PCR) - Final 02/02/25 21:25 Urine, Catheterized Urine Culture - Final Culture exhibits no growth. 02/03/25 01:36 Mucosa - Nasopharyngeal Respiratory Panel (PCR) - Final 02/02/25 21:25 Urine, Clean Catch Legionella Antigen - Final 02/02/25 21:25 Urine, Clean Catch Streptococcus pneumoniae Antigen (M - Final Goal Trough Goal Trough: 15-20 mcg/mL Pharmacy Plan for Drug Dosing Pharmacy Plan for Drug Dosing: VANCOMYCIN LEVEL RECEIVED Current Vancomycin Dose: 500mg IV Q12hr Number of Doses Received: 3 (of current regimen) Vancomycin Level: 16.6 Hours Since Last Dose: ~13hr Renal Function: 1.72 Renal Function Trend: stable Lab/Micro: Cultures (+) MRSA Vancomycin Plan/Comments: Patient had a trough drawn which resulted in a value of 16.6 (goal 15-20). Patient is within therapeutic range, continue current doseof vancomycin 500mg IV Q12hr and recheck a trough in 2 days per protocol. Pending Level: 02/12/25 @1030 Pharmacy Service will continue to monitor and adjust dosing as required. 02/10/25 1204 <Electronically signed by Crys Carvajal > Date _ Crys Carvajal Cosigner Signature (if applicable): Date CC: ~ Signed [facility] Work Phone: [phone]) 173-411807-30-2025 Progress note Author Hugo Cervantes [facility] Note Date/Time February 10, 2025 9:46 am [facility] Medical Records Department [address] [place] [address] Progress Note - Hospitalist 02/10/25 0942 MR#: [id number] Acct: [id number] Name: RICHARD ROY Rep #:[id number] : 1945 79 From: Hugo hollis MD PCP: Kuldip Cosby ASSESSMENT SPECIALISTLisaC Status:ADM IN Location: [place] [address] Subjective Subjective No issues overnight, pending angiogram today. Will continue with IV fluids as he does have a acute kidney injury Objective Data Objective Data Vital Signs: Vital Signs Temp Pulse Resp BP Pulse Ox O2 Del Method O2 Flow Rate 97.7 F L 60 18 157/64 H 98 Nasal Cannula 2 02/10/25 06:18 02/10/25 06:25 02/10/25 06:18 02/10/25 06:42 02/10/25 08:09 02/10/25 08:09 02/10/25 08:09 Oxygen Flow Rate (L/min) 2 Oxygen Delivery Method Nasal Cannula Weight: 262 lb 12.656 oz Body Mass Index (BMI) 35.6 Intake & Output: Intake and Output for Last 24 Hours 02/09/25 02/10/25 02/11/25 03:59 03:59 03:59 Intake Total 1882.79 / 1882.79 1820 / 1820 1050 / 1050 Output Total 2750 / 2750 2500 / 2500 700 / 700 Balance -867.21 / -867.21 -680 / -680 350 / 350 Lab / Micro Data 02/10/25 05:47 02/10/25 05:47 Labs: Laboratory Results - last 24 hr 02/09/25 11:14: POC Glucose 145 H 02/09/25 16:17: POC Glucose 140 H 02/09/25 21:36: POC Glucose 153 H 02/10/25 05:47: WBC 11.4 H, RBC 3.51 L, Hgb 9.7 L, Hct 30.5 L, MCV 86.9, MCH 27.6, MCHC 31.8 L, RDW Std Deviation 43.9, RDW Coeff of Nathaniel 13.7, Plt Count 314,MPV 9.1, Immature Gran % (Auto) 2.300 H, Neut % (Auto) 73.1 H, Lymph % (Auto) 11.0 L, Lea % (Auto) 8.5, Eos % (Auto) 4.7, Baso % (Auto) 0.4, Absolute Neuts (auto) 8.3 H, Absolute Lymphs (auto) 1.25, Nucleated RBC % 0, PT 16.2 H, INR 1.3, APTT 33.4, Sodium 142, Potassium 3.7, Chloride 108, Carbon Dioxide 23.0, Anion Gap 12, BUN 28 H, Creatinine 1.72 H, Estim Creat Clear Calc 47.94 L, Est GFR (MDRD) Non-Af 40 L, BUN/Creatinine Ratio 16.2, Glucose 161 H, Calcium 9.1, AST 15, ALT 31 02/10/25 06:16: POC Glucose 156 H Micro: Microbiology 02/05/25 Unknown Tissue - Toe Gram Stain - Final 02/05/25 Unknown Tissue - Toe Wound Culture - Final No growth aerobically. 02/05/25 Unknown Tissue - Toe Anaerobic Culture - Preliminary No growth in 48 hours. 02/05/25 Unknown Tissue - Toe Gram Stain - Final 02/05/25 Unknown Tissue - Toe Wound Culture - Final Staphylococcus simulans Staphylococcus caprae Meth. resistant Staph. aureus 02/05/25 Unknown Tissue - Toe Anaerobic Culture - Preliminary Checking for anaerobes, further studies to follow. 02/02/25 20:42 Blood Culture (Wb) - Right Wrist Blood Culture - Final No growth in 5 days. 02/02/25 19:56 Blood Culture (Wb) - Left Hand Blood Culture - Final No growth in 5 days. 02/03/25 18:00 Wound - Left Foot Gram Stain - Final 02/03/25 18:00 Wound - Left Foot Wound Culture - Final Meth. resistant Staph. aureus Enterobacter cloacae complex Corynebacterium striatum 02/03/25 18:00 Wound - Left Foot Anaerobic Culture - Final No anaerobic bacteria isolated. 02/05/25 00:05 Nasal Secretion MRSA (PCR) - Final 02/02/25 21:25 Urine, Catheterized Urine Culture - Final Culture exhibits no growth. 02/03/25 01:36 Mucosa - Nasopharyngeal Respiratory Panel (PCR) - Final 02/02/25 21:25 Urine, Clean Catch Legionella Antigen - Final 02/02/25 21:25 Urine, Clean Catch Streptococcus pneumoniae Antigen (M - Final Physical Exam Narrative General: Alert, Oriented x1-2, Cooperative, No apparent distress HEENT: Atraumatic, PERRLA, EOMI, Normocephalic Oral: Moist Mucosa Neck: Supple, No JVD Lungs: Diminished, Normal air movement, No rhonchi, No wheeze, No rales Cardiovascular: Regular rate, Regular Rhythm, Normal S1, Normal S2, No murmurs Abdomen: Soft, Non Tender, Non-Distended, No Hepato-splenomegaly Extremities: Edema, Capillary Refill Less than 3 Seconds Skin: Left lower extremity wound dressing intact Musculoskeletal: No Tenderness to Palpation of Joints or Extremities Neurological: No focal neurological deficits, moves all extremities Psych/Mental Status: Normal affect Assessment & Plan Assessment/Plan (1) Pneumonia: PLAN: Plan 1. Sepsis secondary to left sided pneumonia as well as diabetic foot ulcer on the left status post left fifth ray resection 02/05/2025/ANTHONY ? Continue with broad-spectrum antibiotics ? Appreciate podiatry's assistance ? Will wean oxygen as able ? Wound cultures from the are showing Enterobacter, corynebacterium, and MRSA ? Surgical cultures with MRSA, and other staph species, appreciate infectious disease assistance ? MRI was read as negative for osteomyelitis ? JOSTIN on the right is 0.88 with a left JOSTIN of 1.05, podiatry is consulted vascular surgery, plan for angiogram today ? Creatinine has been at 1.83, will start him on IV fluids as it does not appearthat he is obtaining significant p.o. intake. Appreciate speech therapy. Baseline creatinine is 1.1, he is edematous so we will decrease him to 50 cc/h 2. Paroxysmal A-fib/history of AAA status post repair 2006/essential HTN/HLD/history of sick sinus syndrome status post pacemaker placement ? Continue with his home blood pressure medications ? Blood pressures appear stable ? Continue with cholesterol medications ? Can resume his home Eliquis ? Echo on 02/12/2023 with an EF of 55 to 60% with mild MV insufficiency, he does have a history of aortic valve replacement 3. DM2 ? Hold his home oral medications ? Continue with insulin ? Accu-Cheks ACHS ? Continue with sliding scale insulin ? Will monitor and make adjustments as necessary 4. GERD with a history of GI bleed ? He had been transitioned from Coumadin to Eliquis ? Continue with PPI and Carafate 5. Dementia/anxiety/depression ? Stable, his dementia may be a little bit worse secondary to the infection ? Continue with his home medications 6. BPH with obstruction ? Continue with his Flomax ? Stable 7. Iron deficiency anemia ? Stable ? Continue to monitor ? Continue with iron supplementation DVT: Eliquis Charges/Coding Visit Charges Inpatient E&M: 31859 Subs Hosp L2 02/10/25 0946 <Electronically signed by uHgo Cervantes MD> Cosigner Signature (if applicable): CC: ~ Signed [facility] Work Phone: 1(898) 982-603707-29-2025 Progress note Author Aneesh Ac [facility] Note Date/Time February 09, 2025 6:11 pm [facility] Medical Records Department [address] [place] [address] Progress Note - Surgery 02/09/25 1808 MR#: [id number] Acct: [id number] Name: RICHARD ROY Rep #:[id number] : 1945 79 From: Aneesh Ac MD PCP: Kuldip Cosby ASSESSMENT SPECIALISTJay Jay Status:ADM IN Location: [place] [address] Subjective Subjective Resting comfortably, eating dinner. No foot complaints. Tolerating dressing changes Objective Data Objective Data Awake, alert, NAD RRR Resp non labored Wound photos reviewed Vital Signs: Vital Signs Temp Pulse Resp BP Pulse Ox O2 Del Method O2 Flow Rate 98.4 F 62 18 156/106 H 95 Nasal Cannula 2 02/09/25 14:43 02/09/25 14:43 02/09/25 14:43 02/09/25 14:43 02/09/25 14:43 02/09/25 14:43 02/09/25 14:43 Oxygen Flow Rate (L/min) 2 Oxygen Delivery Method Nasal Cannula Weight: 399 lb 7.642 oz Body Mass Index (BMI) 54.1 Intake & Output: Intake and Output for Last 24 Hours 02/07/25 02/08/25 02/09/25 23:59 23:59 23:59 Intake Total 2300 / 2300 2882.79 / 2882.79 1660 / 1660 Output Total 3290 / 5040 4500 / 4500 1500 / 1500 Balance -990 / -2740 -1617.21 / -1617.21 160 / 160 Lab / Micro Data 02/09/25 07:02 02/09/25 07:02 Labs: Laboratory Results - last 24 hr 02/08/25 18:25: Vancomycin Trough 20.6 H 02/08/25 22:14: POC Glucose 135 H 02/09/25 06:18: POC Glucose 127 H 02/09/25 07:02: WBC 9.9, RBC 3.58 L, Hgb 9.9 L, Hct 32.1 L, MCV 89.7 D, MCH 27.7, MCHC 30.8 L D, RDW Std Deviation 45.1 H, RDW Coeff of Nathaniel 13.8, Plt Count 224, MPV 10.4, Immature Gran % (Auto) 1.600 H, Neut % (Auto) 75.5 H, Lymph % (Auto) 10.7 L, Lea % (Auto) 7.1, Eos % (Auto) 4.5, Baso % (Auto) 0.6, Absolute Neuts (auto) 7.5, Absolute Lymphs (auto) 1.06, Nucleated RBC % 0, Polychromasia 1+, Sodium 143, Potassium 4.1, Chloride 110 H, Carbon Dioxide 21.6, Anion Gap 12, BUN 24 H, Creatinine 1.70 H, Estim Creat Clear Calc 61.27, Est GFR (MDRD) Non-Af 41 L, BUN/Creatinine Ratio 14.2, Glucose 142 H, Calcium 9.0 02/09/25 11:14: POC Glucose 145 H 02/09/25 16:17: POC Glucose 140 H Micro: Microbiology 02/05/25 Unknown Tissue - Toe Gram Stain - Final 02/05/25 Unknown Tissue - Toe Wound Culture - Final No growth aerobically. 02/05/25 Unknown Tissue - Toe Anaerobic Culture - Preliminary No growth in 48 hours. 02/05/25 Unknown Tissue - Toe Gram Stain - Final 02/05/25 Unknown Tissue - Toe Wound Culture - Final Staphylococcus simulans Staphylococcus caprae Meth. resistant Staph. aureus 02/05/25 Unknown Tissue - Toe Anaerobic Culture - Preliminary Checking for anaerobes, further studies to follow. 02/02/25 20:42 Blood Culture (Wb) - Right Wrist Blood Culture - Final No growth in 5 days. 02/02/25 19:56 Blood Culture (Wb) - Left Hand Blood Culture - Final No growth in 5 days. 02/03/25 18:00 Wound - Left Foot Gram Stain - Final 02/03/25 18:00 Wound - Left Foot Wound Culture - Final Meth. resistant Staph. aureus Enterobacter cloacae complex Corynebacterium striatum 02/03/25 18:00 Wound - Left Foot Anaerobic Culture - Final No anaerobic bacteria isolated. 02/05/25 00:05 Nasal Secretion MRSA (PCR) - Final 02/02/25 21:25 Urine, Catheterized Urine Culture - Final Culture exhibits no growth. 02/03/25 01:36 Mucosa - Nasopharyngeal Respiratory Panel (PCR) - Final 02/02/25 21:25 Urine, Clean Catch Legionella Antigen - Final 02/02/25 21:25 Urine, Clean Catch Streptococcus pneumoniae Antigen (M - Final ABG Data ABG results: ABG 02/08/25 18:44 Specimen Type ART Sample Site R Radial pH 7.44 Bicarbonate Actual 28.8 H Total CO2 30 Base Excess 5 H O2 Saturation 96 O2 % 2.0 ABG pCO2 42.1 ABG pO2 82 Eugenio Test Positive O2 Delivery Device Cannula Vent Mode Not entered Assessment & Plan Assessment/Plan (1) PAD (peripheral artery disease): PLAN: -wound bed remains unenthusiastic appearing with regards to perfusion -cr remains elevated above baseline -will forgo CT scan at this time -plan for angio with CO2 tomorrow, possible intervention -npo at midnight, hold eliquis tonight/AM Charges/Coding Visit Charges Inpatient E&M: 27231 Subs Hosp L2 02/09/251810 <Electronically signed by Aneesh Ac MD> Cosigner Signature (if applicable): CC: ~ Signed [facility] Work Phone: 1(264) 568-176607-29-2025 Progress note Author Smith Robertoninger [facility] Note Date/Time February 09, 2025 10:1 7am [facility] Medical Records Department [address] [place] [address] Progress Note - Infect Disease 02/09/25 1016 MR#: [id number] Acct: [id number] Name: RICHARD ROY Rep #:[id number] : 1945 79 From: Smith huang MD PCP: Kuldip Cosby ASSESSMENT SPECIALIST-C Status:ADM IN Location: [place] [address] Physical Exam Narrative Feeling fine, no pain in foot, no fever, no n/v/d Const alert and no apparent distress General Appearance: cooperative Resp normal air movement and clear to auscultation bilaterally Cardio regular rate and regular rhythm GI soft to palpation, non-tender and non-distended Skin Skin Narrative: foot wrapped ID ID: Route of nutrition/ use of supplements: [] Nutritional Intake: [] IV Site: [] Rodrigues Catheter: [] Assessment & Plan Assessment/Plan (1) Acute osteomyelitis of metatarsal bone of left foot: PLAN: Taken to OR 02/05/[address] Mejia for L 5th toe amp and debridement L 5th metatarsal. Clearance cx neg so far. Surg cx with CoNS x2, MRSA. 02/03/25 wound cx with MRSA, enterobacter, and corynebacter. Cont vanc/zosyn. Will follow (2) Diabetes mellitus with diabetic polyneuropathy: (3) PAD (peripheral artery disease): 02/09/25 1017 <Electronically signed by Smith Leija MD> Cosigner Signature (if applicable): CC: ~ Signed [facility] Work Phone: [phone]) [phone] Progress note Author Hugo Cervantes [facility] Note Date/Time February 09, 2025 9:14 am [facility] Medical Records Department [address] [place] [address] Progress Note - Hospitalist 02/09/25908 MR#: [id number] Acct: [id number] Name: RICHARD ROY Rep #:[id number] : 1945 79 From: Hugo hollis MD PCP: Kuldip Cosby ASSESSMENT SPECIALIST-C Status:ADM IN Location: [place] [address] Subjective Subjective Doing well, no issues overnight. He was little bit lethargic yesterday afternoon so an ABG was obtained which was normal, lethargy has resolved Objective Data Objective Data Vital Signs: Vital Signs Temp Pulse Resp BP Pulse Ox O2 Del Method O2 Flow Rate 97.6 F L 60 20 H 169/67 H 94 Nasal Cannula 2 02/09/25 08:33 02/09/25 08:33 02/09/25 08:33 02/09/25 08:33 02/09/25 08:33 02/09/25 08:33 02/09/25 08:33 Oxygen Flow Rate (L/min) 2 Oxygen Delivery Method Nasal Cannula Weight: 399 lb 7.642 oz Body Mass Index (BMI) 54.1 Intake & Output: Intake and Output for Last 24 Hours 02/08/25 02/09/25 02/10/25 03:59 03:59 03:59 Intake Total 3300 / 3300 1882.79 / 1882.79 Output Total 4590 / 4590 2750 / 2750 Balance -1290 / -1290 -867.21 / -867.21 Lab / Micro Data 02/09/25 07:02 02/09/25 07:02 Labs: Laboratory Results - last 24 hr 02/08/25 11:43: POC Glucose 145 H 02/08/25 17:00: POC Glucose 141 H 02/08/25 18:25: Vancomycin Trough 20.6 H 02/08/25 22:14: POC Glucose 135 H 02/09/25 06:18: POC Glucose 127 H 02/09/25 07:02: WBC 9.9, RBC 3.58 L, Hgb 9.9 L, Hct 32.1 L, MCV 89.7 D, MCH 27.7, MCHC 30.8 L D, RDW Std Deviation 45.1 H, RDW Coeff of Nathaniel 13.8, Plt Count 224, MPV 10.4, Immature Gran % (Auto) 1.600 H, Neut % (Auto) 75.5 H, Lymph % (Auto) 10.7 L, Lea % (Auto) 7.1, Eos % (Auto) 4.5, Baso % (Auto) 0.6, Absolute Neuts (auto) 7.5, Absolute Lymphs (auto) 1.06, Nucleated RBC % 0, Polychromasia 1+, Sodium 143, Potassium 4.1, Chloride 110 H, Carbon Dioxide 21.6, Anion Gap 12, BUN 24 H, Creatinine 1.70 H, Estim Creat Clear Calc 61.27, Est GFR (MDRD) Non-Af 41 L, BUN/Creatinine Ratio 14.2, Glucose 142 H, Calcium 9.0 Micro: Microbiology 02/05/25 Unknown Tissue - Toe Gram Stain - Final 02/05/25 Unknown Tissue - Toe Wound Culture - Preliminary Coag Negative Staph Coag Negative Staph#2 Staphylococcus aureus 02/05/25 Unknown Tissue - Toe Anaerobic Culture - Preliminary Checking for anaerobes, further studies to follow. 02/05/25 Unknown Tissue - Toe Gram Stain - Final 02/05/25 Unknown Tissue - Toe Wound Culture - Preliminary No growth-Final to follow 02/05/25 Unknown Tissue - Toe Anaerobic Culture - Preliminary No growth in 48 hours. 02/02/25 20:42 Blood Culture (Wb) - Right Wrist Blood Culture - Final No growth in 5 days. 02/02/25 19:56 Blood Culture (Wb) - Left Hand Blood Culture - Final No growth in 5 days. 02/03/25 18:00 Wound - Left Foot Gram Stain - Final 02/03/25 18:00 Wound - Left Foot Wound Culture - Final Meth. resistant Staph. aureus Enterobacter cloacae complex Corynebacterium striatum 02/03/25 18:00 Wound - Left Foot Anaerobic Culture - Final No anaerobic bacteria isolated. 02/05/25 00:05 Nasal Secretion MRSA (PCR) - Final 02/02/25 21:25 Urine, Catheterized Urine Culture - Final Culture exhibits no growth. 02/03/25 01:36 Mucosa - Nasopharyngeal Respiratory Panel (PCR) - Final 02/02/25 21:25 Urine, Clean Catch Legionella Antigen - Final 02/02/25 21:25 Urine, Clean Catch Streptococcus pneumoniae Antigen (M - Final ABG Data ABG results: ABG 02/08/25 18:44 Specimen Type ART Sample Site R Radial pH 7.44 Bicarbonate Actual 28.8 H Total CO2 30 Base Excess 5 H O2 Saturation 96 O2 % 2.0 ABG pCO2 42.1 ABG pO2 82 Eugenio Test Positive O2 Delivery Device Cannula Vent Mode Not entered Physical Exam Narrative General: Alert, Oriented x1-2, Cooperative, No apparent distress HEENT: Atraumatic, PERRLA, EOMI, Normocephalic Oral: Moist Mucosa Neck: Supple, No JVD Lungs: Diminished, Normal air movement, No rhonchi, No wheeze, No rales Cardiovascular: Regular rate, Regular Rhythm, Normal S1, Normal S2, No murmurs Abdomen: Soft, Non Tender, Non-Distended, No Hepato-splenomegaly Extremities: Edema, Capillary Refill Less than 3 Seconds Skin: Postop dressing intact wound not evaluated as it was just dressed by podiatry Musculoskeletal: No Tenderness to Palpation of Joints or Extremities Neurological: No focal neurological deficits, moves all extremities Psych/Mental Status: Normal affect Assessment & Plan Assessment/Plan (1) Pneumonia: PLAN: Plan 1. Sepsis secondary to left sided pneumonia as well as diabetic foot ulcer on the left status post left fifth ray resection 02/05/2025/ANTHONY ? Continue with broad-spectrum antibiotics ? Appreciate podiatry's assistance plan for surgical intervention today. ? Will wean oxygen as able ? Wound cultures from the are showing Enterobacter, corynebacterium, and MRSA ? Surgical cultures with MRSA, and other staph species ? MRI was read as negative for osteomyelitis ? JOSTIN on the right is 0.88 with a left JOSTIN of 1.05, podiatry is consulted vascular surgery ? Creatinine has been at 1.83, will start him on IV fluids as it does not appearthat he is obtaining significant p.o. intake. Appreciate speech therapy. Baseline creatinine is 1.1, he is getting over the edematous so we will decreasehim to 50 cc/h 2. Paroxysmal A-fib/history of AAA status post repair 2006/essential HTN/HLD/history of sick sinus syndrome status post pacemaker placement ? Continue with his home blood pressure medications ? Blood pressures appear stable ? Continue with cholesterol medications ? Can resume his home Eliquis ? Echo on 02/12/2023 with an EF of 55 to 60% with mild MV insufficiency, he does have a history of aortic valve replacement 3. DM2 ? Hold his home oral medications ? Continue with insulin ? Accu-Cheks ACHS ? Continue with sliding scale insulin ? Will monitor and make adjustments as necessary 4. GERD with a history of GI bleed ? He had been transitioned from Coumadin to Eliquis ? Continue with PPI and Carafate 5. Dementia/anxiety/depression ? Stable, his dementia may be a little bit worse secondary to the infection ? Continue with his home medications 6. BPH with obstruction ? Continue with his Flomax ? Stable 7. Iron deficiency anemia ? Stable ? Continue to monitor ? Continue with iron supplementation DVT: Eliquis Charges/Coding Visit Charges Inpatient E&M: 74759 Subs Hosp L2 02/09/25 0914 <Electronically signed by Hugo Cervantes MD> Cosigner Signature (if applicable): CC: ~ Signed [facility] Work Phone: [phone]) [phone] Consult note Author Renetta Gonsales [facility] Note Date/Time February 09, 2025 7:[address] [facility] Medical Records Department [address] [place] [address] Pharmacokinetic/Renal -Consult 02/08/251930 MR#: [id number] Acct: [id number] Name: RICHARD ROY Rep #:[id number] : 1945 79 From: Renetta Gonsales PCP: Kuldip Cosby ASSESSMENT SPECIALISTJay Jay Status:ADM IN Y Location: [facility] [id number] Consult Antibiotic Management Pharmacy has been consulted to manage selected antibiotic: Vancomycin Type of Intervention Type of Consult: Follow-up Suspected Infection Suspected Infection: Skin/Soft tissue Labs Labs: Sodium 143 mmol/L (133-145) 02/08/25 05:22 Potassium 3.8 mmol/L (3.3-5.1) 02/08/25 05:22 Chloride 110 mmol/L (98-108) H 02/08/25 05:22 Carbon Dioxide 24.2 mmol/L (21.0-32.0) 02/08/25 05:22 Anion Gap 9 (5-15) 02/08/25 05:22 BUN 33 mg/dL (4-19) H 02/08/25 05:22 Creatinine 1.71 mg/dL (0.70-1.20) H 02/08/25 05:22 Est GFR (MDRD) Non-Af 41 (>60) L 02/08/25 05:22 BUN/Creatinine Ratio 19.1 RATIO (10-20) 02/08/25 05:22 Glucose 156 mg/dL (70-99) H 02/08/25 05:22 Vancomycin Trough 20.6 ug/mL (5.0-15.0) H 02/08/25 18:25 Random Vancomycin 17.6 ug/mL (0.0-15.0) H 02/07/25 05:46 Microbiology Microbiology: Microbiology 02/05/25 Unknown Tissue - Toe Gram Stain - Final 02/05/25 Unknown Tissue - Toe Wound Culture - Preliminary Coag Negative Staph Coag Negative Staph#2 Staphylococcus aureus 02/05/25 Unknown Tissue - Toe Anaerobic Culture - Preliminary Checking for anaerobes, further studies to follow. 02/05/25 Unknown Tissue - Toe Gram Stain - Final 02/05/25 Unknown Tissue - Toe Wound Culture - Preliminary No growth-Final to follow 02/05/25 Unknown Tissue - Toe Anaerobic Culture - Preliminary No growth in 48 hours. 02/02/25 20:42 Blood Culture (Wb) - Right Wrist Blood Culture - Final No growth in 5 days. 02/02/25 19:56 Blood Culture (Wb) - Left Hand Blood Culture - Final No growth in 5 days. 02/03/25 18:00 Wound - Left Foot Gram Stain - Final 02/03/25 18:00 Wound - Left Foot Wound Culture - Final Meth. resistant Staph. aureus Enterobacter cloacae complex Corynebacterium striatum 02/03/25 18:00 Wound - Left Foot Anaerobic Culture - Final No anaerobic bacteria isolated. 02/05/25 00:05 Nasal Secretion MRSA (PCR) - Final 02/02/25 21:25 Urine, Catheterized Urine Culture - Final Culture exhibits no growth. 02/03/25 01:36 Mucosa - Nasopharyngeal Respiratory Panel (PCR) - Final 02/02/25 21:25 Urine, Clean Catch Legionella Antigen - Final 02/02/25 21:25 Urine, Clean Catch Streptococcus pneumoniae Antigen (M - Final Pharmacy Plan for Drug Dosing Pharmacy Plan for Drug Dosing: VANCOMYCIN LEVEL RECEIVED Current Vancomycin Dose: 750MG Q12 Number of Doses Received: 8 Vancomycin Level: 20.6 MG/DL Hours Since Last Dose: 12.5 Renal Function: SCr 1.71 mg/dL, CrCl 48 mL/min Renal Function Trend: improved from 1.83 Lab/Micro: wound cx mrsa, repeat with staph Vancomycin Plan/Comments: 20.5 hour trough is slightly supratherapeutic at 20.6 mg/dL (goal 15-20). Will decrease dose to 500mg Q12 but will start later tonightat 2300 to allow level to come down further. Will get a trough prior to 4th doseof new regimen. Pending Level: 02/10/25 @ 1030 Pharmacy Service will continue to monitor and adjust dosing as required. 02/08/251931 <Electronically signed by Renetta Gonsales> Date _ Renetta Gonsales 02/09/25 0710 <Electronically signed by Hugo painter MD> Cosigner Signature (if applicable): Date Hugo Cervantes MD CC: ~ Signed [facility] Work Phone: 1(395) 270-816107-29-2025 Progress note Author Kee Mejia [facility] Note Date/Time February 08, 2025 11:1 9pm [facility] Medical Records Department [address] [place] [address] Progress Note 02/08/25 1900 MR#: [id number] Acct: [id number] Name: RICHARD ROY Rep #:[id number] : 1945 79 From: Kee Mejia DPM PCP: Kuldip Cosby ASSESSMENT SPECIALIST-C Status:ADM IN Location: [place] [address] Subjective Subjective Patient seen today for follow up on left foot. He is sleeping in bed this evening. No fever. at bedside. Objective Data Objective Data Vital Signs: Vital Signs Temp Pulse Resp BP Pulse Ox O2 Del Method O2 Flow Rate 97.1 F L 60 18 153/90 H 94 Nasal Cannula 2 02/08/25 22:04 02/08/25 22:04 02/08/25 22:04 02/08/25 22:04 02/08/25 22:04 02/08/25 22:04 02/08/25 22:04 Oxygen Flow Rate (L/min) 2 Oxygen Delivery Method Nasal Cannula Weight: 121.2 kg Body Mass Index (BMI) 36.2 Intake & Output: Intake and Output for Last 24 Hours 02/06/25 02/07/25 02/08/25 23:59 23:59 23:59 Intake Total 2872.5 / 2872.5 2300 / 2300 2882.79 / 2882.79 Output Total 1850 / 1850 3290 / 5040 3550 / 3550 Balance 1022.5 / 1022.5 -990 / -2740 -667.21 / -667.21 Lab / Micro Data 02/08/25 05:22 02/08/25 05:22 Labs: Laboratory Results - last 24 hr 02/08/25 05:22: WBC 10.9, RBC 3.45 L, Hgb 9.6 L, Hct 29.3 L, MCV 84.9, MCH 27.8,MCHC 32.8, RDW Std Deviation 42.7, RDW Coeff of Nathaniel 13.7, Plt Count 263, MPV 8.8, Immature Gran % (Auto) 1.400 H, Neut % (Auto) 72.7 H, Lymph % (Auto) 11.5 L, Lea % (Auto) 9.5, Eos % (Auto) 4.6, Baso % (Auto) 0.3, Absolute Neuts (auto) 7.9 H, Absolute Lymphs (auto) 1.25, Nucleated RBC % 0, Sodium 143, Potassium 3.8, Chloride 110 H, Carbon Dioxide 24.2, Anion Gap 9, BUN 33 H, Creatinine 1.71H, Estim Creat Clear Calc 48.63 L, Est GFR (MDRD) Non-Af 41 L, BUN/Creatinine Ratio 19.1, Glucose 156 H, Calcium 8.9 02/08/25 05:56: POC Glucose 145 H 02/08/25 11:43: POC Glucose 145 H 02/08/25 17:00: POC Glucose 141 H 02/08/25 18:25: Vancomycin Trough 20.6 H 02/08/25 22:14: POC Glucose 135 H Micro: Microbiology 02/05/25 Unknown Tissue - Toe Gram Stain - Final 02/05/25 Unknown Tissue - Toe Wound Culture - Preliminary Coag Negative Staph Coag Negative Staph#2 Staphylococcus aureus 02/05/25 Unknown Tissue - Toe Anaerobic Culture - Preliminary Checking for anaerobes, further studies to follow. 02/05/25 Unknown Tissue - Toe Gram Stain - Final 02/05/25 Unknown Tissue - Toe Wound Culture - Preliminary No growth-Final to follow 02/05/25 Unknown Tissue - Toe Anaerobic Culture - Preliminary No growth in 48 hours. 02/02/25 20:42 Blood Culture (Wb) - Right Wrist Blood Culture - Final No growth in 5 days. 02/02/25 19:56 Blood Culture (Wb) - Left Hand Blood Culture - Final No growth in 5 days. 02/03/25 18:00 Wound - Left Foot Gram Stain - Final 02/03/25 18:00 Wound - Left Foot Wound Culture - Final Meth. resistant Staph. aureus Enterobacter cloacae complex Corynebacterium striatum 02/03/25 18:00 Wound - Left Foot Anaerobic Culture - Final No anaerobic bacteria isolated. 02/05/25 00:05 Nasal Secretion MRSA (PCR) - Final 02/02/25 21:25 Urine, Catheterized Urine Culture - Final Culture exhibits no growth. 02/03/25 01:36 Mucosa - Nasopharyngeal Respiratory Panel (PCR) - Final 02/02/25 21:25 Urine, Clean Catch Legionella Antigen - Final 02/02/25 21:25 Urine, Clean Catch Streptococcus pneumoniae Antigen (M - Final ABG Data ABG results: ABG 02/08/25 18:44 Specimen Type ART Sample Site R Radial pH 7.44 Bicarbonate Actual 28.8 H Total CO2 30 Base Excess 5 H O2 Saturation 96 O2 % 2.0 ABG pCO2 42.1 ABG pO2 82 Eugenio Test Positive O2 Delivery Device Cannula Vent Mode Not entered Physical Exam Const no apparent distress Constitutional Narrative: s/p debridement 5th MTPJ, less cellulitis left foot, no evidence of ischemia left foot Assessment & Plan Assessment/Plan (1) Cellulitis of left lower limb: (2) Acute osteomyelitis of metatarsal bone of left foot: (3) Diabetes mellitus with diabetic polyneuropathy: (4) Type 2 diabetes mellitus with foot ulcer: PLAN: Plan Reviewed diagnostic data. s/p left foot 5th ray debridement on 02/05/2025. Infection significantly improved left foot. Will continue to monitor. Patient remains on IV antibiotic therapy - Vanc and Zosyn. Reviewed culture findings, clearance fragment left 5th metatarsal and toe with no growth so far. Infectious Disease on consult. No weightbearing left foot. Keep offloaded at all times. Wound care: betadine gauze to the left lateral foot wound, cover with dry dressing, change daily. Consider wound vac in future - awaiting further vascularsurgery recommendations. Vascular surgery is on consult and planning to get CTA. Podiatry will continue to follow. Discussed with Dr. Cervantes and nursing. 02/08/25 2991 <Electronically signed by Kee Mejia DPM> Kee Mejia DPM Cosigner Signature (if applicable): CC: ~ Signed [facility] Work Phone: [phone] 352-701407-28-2025 Consult note Author Smith Leija [facility] Note Date/Time February 08, 2025 3:37 pm [facility] Medical Records Department [address] [place] [address] Consultation - Infectious Dx 02/08/25 1532 MR#: [id number] Acct: [id number] Name: RICHARD ROY Rep #:[id number] : 1945 79 From: Smith huang MD PCP: Kuldip Cosby ASSESSMENT SPECIALISTLisaC Status:ADM IN Location: [id number] Assessment & Plan Assessment/Plan (1) Acute osteomyelitis of metatarsal bone of left foot: PLAN: Taken to OR 02/05/[address] Mejia for L 5th toe amp and debridement L 5thmetatarsal. Clearance cx neg so far. Surg cx with CoNS x2, staph aureus. 02/03/25 wound cx with MRSA, enterobacter, and corynebacter. Cont vanc/zosyn. Will follow, thank you (2) Diabetes mellitus with diabetic polyneuropathy: (3) PAD (peripheral artery disease): HPI Consult Data Date of Consult: 02/08/25 HPI Narrative Reason for Consultation: osteo HPI Narrative: RICHARD ROY, is a 79 M with h/o BPH, CKD, AAA repair, AVR, DM, and dementia, presented 02/02 with confusion, fever, and redness to L foot. Admitted on vanc/zosyn. Seen by podiatry and vascular. Taken to OR 02/05/[address] Mejia for amputation L 5th toe. Feeling ok today, no fever overnight. 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) Home Medications ?Medication ?Instructions ?Recorded ?Last Taken ?Type losartan 50 mg tablet 50 mg PO DAILY blood pressur e 09/10/18 11/18/24 History atorvastatin 40 mg tablet 40 mg PO QHS cholesterol 03/0105/31/24 History tamsulosin 0.4 mg capsule 0.4 mg PO QHS PROSTATE 03/0205/31/24 History cholecalciferol (vitamin D3) 1,250 1,250 mcg PO MO SUP PLEMENT 01/21/23 06/01/24 History mcg (50,000 unit) tablet metformin 1,000 mg tablet 1,000 mg PO BID DM 01/21/23 06/01/24 History insulin glargine 100 unit/mL (3 15 unit (0.15 mL) subc ut DAILY 01/26/23 06/01/24 Rx mL) subcutaneous pen (Lantus diabetes #15 mL Solostar U-100 Insulin) pantoprazole 40 mg tablet,delayed 40 mg PO BID #60 tab s 02/05/23 06/01/24 Rx release sucralfate 1 gram tablet 1 g PO 0700,1100,1600 #90 ta bs 02/05/23 06/01/24 Rx melatonin 3 mg tablet 3 mg PO QHS Insomnia 3 02/10/23 History memantine 10 mg tablet 10 mg PO BID #0 tabs 3 06/01/24 Rx bisacodyl 10 mg rectal suppository 10 mg WV DAILY PRN constipation 05/30/23 Unknown History loperamide 2 mg capsule 2 mg PO Q4H PRN loose stool 05/30/23 Unknown History (Anti-Diarrheal (loperamide)) acetaminophen 325 mg tablet 650 mg PO .q12hrs PAIN AND FEVER 10/07/23 06/01/24 History ferrous sulfate 325 mg (65 mg 325 mg PO DAILY 10/07/23 06/01/24 History iron) tablet apixaban 5 mg tablet (Eliquis) 5 mg PO BID #60 tabs 05/30/24 Rx paroxetine HCl 30 mg tablet 30 mg PO QDAY 04/07/24 History ipratropium 0.5 mg-albuterol 3 mg 3 ml inhalation Q4H PRN shortness 02/02/25 Unknown History (2.5 mg base)/3 mL nebulization of breath soln metoprolol succinate 25 mg capsule 25 mg PO DAILY 01/13 09/08 Unknown History sprinkle, ext. release 24 hr (Kapspargo Sprinkle) Allergy/AdvReac Type Severity Reaction Status Date / Time propofol AdvReac Other Verified 02/02/25 19:42 Family History Mother Heart disease Diabetes Hypertension Father Heart disease Surgical History History of AAA (abdominal aortic aneurysm) repair History of foot surgery Hx of abdominal surgery H/O aortic valve repair History of thoracic aortic aneurysm repair Social History housing: [facility] current occupational status: retired Smoking Status: Never smoker alcohol intake: never substance use type: does not use Physical Exam Const no apparent distress General Appearance: lethargic HEENT normocephalic and head/scalp atraumatic Eyes PERRL and EOMs intact bilaterally Neck supple and No nodes Resp normal air movement Auscultation: diminished lung sounds Cardio regular rate and regular rhythm GI soft to palpation, non-tender and non-distended Extremity General Extremity: edema Skin Skin Narrative: foot wrapped Neuro CN's II-XII intact bilaterally Lab / Micro Data Attestation: I reviewed the patient's lab results. 02/08/25 05:22 02/08/25 05:22 Labs: Laboratory Results - last 24 hr 02/07/25 16:50: POC Glucose 143 H 02/07/25 21:44: POC Glucose 174 H 02/08/25 05:22: WBC 10.9, RBC 3.45 L, Hgb 9.6 L, Hct 29.3 L, MCV 84.9, MCH 27.8,MCHC 32.8, RDW Std Deviation 42.7, RDW Coeff of Nathaniel 13.7, Plt Count 263, MPV 8.8, Immature Gran % (Auto) 1.400 H, Neut % (Auto) 72.7 H, Lymph % (Auto) 11.5 L, Lea % (Auto) 9.5, Eos % (Auto) 4.6, Baso % (Auto) 0.3, Absolute Neuts (auto) 7.9 H, Absolute Lymphs (auto) 1.25, Nucleated RBC % 0, Sodium 143, Potassium 3.8, Chloride 110 H, Carbon Dioxide 24.2, Anion Gap 9, BUN 33 H, Creatinine 1.71H, Estim Creat Clear Calc 48.63 L, Est GFR (MDRD) Non-Af 41 L, BUN/Creatinine Ratio 19.1, Glucose 156 H, Calcium 8.9 02/08/25 05:56: POC Glucose 145 H 02/08/25 11:43: POC Glucose 145 H Micro: Microbiology 02/05/25 Unknown Tissue - Toe Gram Stain - Final 02/05/25 Unknown Tissue - Toe Wound Culture - Preliminary Coag Negative Staph Coag Negative Staph#2 Staphylococcus aureus 02/05/25 Unknown Tissue - Toe Anaerobic Culture - Preliminary Checking for anaerobes, further studies to follow. 02/05/25 Unknown Tissue - Toe Gram Stain - Final 02/05/25 Unknown Tissue - Toe Wound Culture - Preliminary No growth-Final to follow 02/05/25 Unknown Tissue - Toe Anaerobic Culture - Preliminary No growth in 48 hours. 02/02/25 20:42 Blood Culture (Wb) - Right Wrist Blood Culture - Final No growth in 5 days. 02/02/25 19:56 Blood Culture (Wb) - Left Hand Blood Culture - Final No growth in 5 days. 02/08/25 1537 <Electronically signed by Smith Leija MD> Cosigner Signature (if applicable): CC: Kuldip Cosby~ Signed [facility] Work Phone: [phone] 302-864707-28-2025 Progress note Author Hugo Cervantes [facility] Note Date/Time February 08, 2025 8:55 am [facility] Medical Records Department [address] [place] [address] Progress Note - Hospitalist 02/08/25 0827 MR#: [id number] Acct: [id number] Name: RICHARD ROY Rep #:[id number] : 1945 79 From: Hugo hollis MD PCP: Kuldip Cosby Status:ADM IN Location: [place] [address] Subjective Subjective Doing well, no issues overnight. Awaiting evaluation by vascular surgery and ID Objective Data Objective Data Vital Signs: Vital Signs Temp Pulse Resp BP Pulse Ox O2 Del Method O2 Flow Rate 97.9 F 60 18 153/59 H 94 Nasal Cannula 3 02/08/25 03:26 02/08/25 03:26 02/08/25 03:26 02/08/25 03:26 02/08/25 03:26 02/08/25 07:31 02/08/25 07:31 Oxygen Flow Rate (L/min) 3 Oxygen Delivery Method Nasal Cannula Weight: 267 lb 3.204 oz Body Mass Index (BMI) 36.2 Intake & Output: Intake and Output for Last 24 Hours 02/07/25 02/08/25 02/09/25 03:59 03:59 03:59 Intake Total 2772.5 / 2772.5 3300 / 3300 260.5 / 260.5 Output Total 1200 / 1200 4590 / 4590 1300 / 1300 Balance 1572.5 / 1572.5 -1290 / -1290 -1039.5 / -1039.5 Lab / Micro Data 02/08/25 05:22 02/08/25 05:22 Labs: Laboratory Results - last 24 hr 02/07/25 10:34: POC Glucose 156 H 02/07/25 16:50: POC Glucose 143 H 02/07/25 21:44: POC Glucose 174 H 02/08/25 05:22: WBC 10.9, RBC 3.45 L, Hgb 9.6 L, Hct 29.3 L, MCV 84.9, MCH 27.8,MCHC 32.8, RDW Std Deviation 42.7, RDW Coeff of Nathaniel 13.7, Plt Count 263, MPV 8.8, Immature Gran % (Auto) 1.400 H, Neut % (Auto) 72.7 H, Lymph % (Auto) 11.5 L, Lea % (Auto) 9.5, Eos % (Auto) 4.6, Baso % (Auto) 0.3, Absolute Neuts (auto) 7.9 H, Absolute Lymphs (auto) 1.25, Nucleated RBC % 0, Sodium 143, Potassium 3.8, Chloride 110 H, Carbon Dioxide 24.2, Anion Gap 9, BUN 33 H, Creatinine 1.71H, Estim Creat Clear Calc 48.63 L, Est GFR (MDRD) Non-Af 41 L, BUN/Creatinine Ratio 19.1, Glucose 156 H, Calcium 8.9 02/08/25 05:56: POC Glucose 145 H Micro: Microbiology 02/02/25 20:42 Blood Culture (Wb) - Right Wrist Blood Culture - Final No growth in 5 days. 02/02/25 19:56 Blood Culture (Wb) - Left Hand Blood Culture - Final No growth in 5 days. 02/03/25 18:00 Wound - Left Foot Gram Stain - Final 02/03/25 18:00 Wound - Left Foot Wound Culture - Final Meth. resistant Staph. aureus Enterobacter cloacae complex Corynebacterium striatum 02/03/25 18:00 Wound - Left Foot Anaerobic Culture - Final No anaerobic bacteria isolated. 02/05/25 Unknown Tissue - Toe Gram Stain - Final 02/05/25 Unknown Tissue - Toe Wound Culture - Preliminary Coag Negative Staph Coag Negative Staph#2 02/05/25 Unknown Tissue - Toe Gram Stain - Final 02/05/25 Unknown Tissue - Toe Wound Culture - Preliminary No growth-Final to follow 02/05/25 00:05 Nasal Secretion MRSA (PCR) - Final 02/02/25 21:25 Urine, Catheterized Urine Culture - Final Culture exhibits no growth. 02/03/25 01:36 Mucosa - Nasopharyngeal Respiratory Panel (PCR) - Final 02/02/25 21:25 Urine, Clean Catch Legionella Antigen - Final 02/02/25 21:25 Urine, Clean Catch Streptococcus pneumoniae Antigen (M - Final Physical Exam Narrative General: Alert, Oriented x1-2, Cooperative, No apparent distress HEENT: Atraumatic, PERRLA, EOMI, Normocephalic Oral: Moist Mucosa Neck: Supple, No JVD Lungs: Diminished, Normal air movement, No rhonchi, No wheeze, No rales Cardiovascular: Regular rate, Regular Rhythm, Normal S1, Normal S2, No murmurs Abdomen: Soft, Non Tender, Non-Distended, No Hepato-splenomegaly Extremities: No edema, Capillary Refill Less than 3 Seconds Skin: Postop dressing intact wound not evaluated as it was just dressed by podiatry Musculoskeletal: No Tenderness to Palpation of Joints or Extremities Neurological: No focal neurological deficits, moves all extremities Psych/Mental Status: Normal affect Assessment & Plan Assessment/Plan (1) Pneumonia: PLAN: Plan 1. Sepsis secondary to left sided pneumonia as well as diabetic foot ulcer on the left status post left fifth ray resection 02/05/2025/ANTHONY ? Continue with broad-spectrum antibiotics ? Appreciate podiatry's assistance plan for surgical intervention today. ? Will wean oxygen as able ? Wound cultures from the are showing Enterobacter, corynebacterium, and MRSA surgical cultures are still pending ? MRI was read as negative for osteomyelitis ? JOSTIN on the right is 0.88 with a left JOSTIN of 1.05, podiatry is consulted vascular surgery ? Creatinine has been at 1.83, will start him on IV fluids as it does not appearthat he is obtaining significant p.o. intake. Appreciate speech therapy. Baseline creatinine is 1.1 2. Paroxysmal A-fib/history of AAA status post repair 2006/essential HTN/HLD/history of sick sinus syndrome status post pacemaker placement ? Continue with his home blood pressure medications ? Blood pressures appear stable ? Continue with cholesterol medications ? Can resume his home Eliquis ? Echo on 02/12/2023 with an EF of 55 to 60% with mild MV insufficiency, he does have a history of aortic valve replacement 3. DM2 ? Hold his home oral medications ? Continue with insulin ? Accu-Cheks ACHS ? Continue with sliding scale insulin ? Will monitor and make adjustments as necessary 4. GERD with a history of GI bleed ? He had been transitioned from Coumadin to Eliquis ? Continue with PPI and Carafate 5. Dementia/anxiety/depression ? Stable, his dementia may be a little bit worse secondary to the infection ? Continue with his home medications 6. BPH with obstruction ? Continue with his Flomax ? Stable 7. Iron deficiency anemia ? Stable ? Continue to monitor ? Continue with iron supplementation DVT: Eliquis Charges/Coding Visit Charges Inpatient E&M: 35543 Subs Hosp L2 02/08/25 0856 <Electronically signed by Hugo Cervantes MD> Cosigner Signature (if applicable): CC: ~ Signed [facility] Work Phone: [phone]) 834-291407-27-2025 Progress note Author Kee Mejia [facility] Note Date/Time February 07, 2025 9:40 am [facility] Medical Records Department [address] [place] [address] Progress Note 02/07/2513 MR#: [id number] Acct: [id number] Name: RICHARD ROY Rep #:[id number] : 1945 79 From: Kee Mejia DPM PCP: Kuldip Cosby ASSESSMENT SPECIALISTLisaC Status:ADM IN Location: [place] [address] Subjective Subjective Patient was seen this morning for follow up on left foot. He is resting in bed. No new issues. Objective Data Objective Data Vital Signs: Vital Signs Temp Pulse Resp BP Pulse Ox O2 Del Method O2 Flow Rate 98.3 F 62 20 H 153/61 H 94 Nasal Cannula 3 02/07/25 03:48 02/07/25 03:48 02/07/25 03:48 02/07/25 03:48 02/07/25 07:39 02/07/25 07:39 02/07/25 07:39 Oxygen Flow Rate (L/min) 3 Oxygen Delivery Method Nasal Cannula Weight: 120.5 kg Body Mass Index (BMI) 36.0 Intake & Output: Intake and Output for Last 24 Hours 02/05/25 02/06/25 02/07/25 23:59 23:59 23:59 Intake Total 1170.25 / 1270.25 2872.5 / 2872.5 315 / 315 Output Total 2009 1850 / 1850 1650 / 1650 Balance 260.25 / -739.75 1022.5 / 1022.5 -1335 / -1335 Lab / Micro Data 02/07/25 05:46 02/07/25 05:46 Labs: Laboratory Results - last 24 hr 02/06/25 09:30: Vancomycin Trough 25.9 H 02/06/25 12:43: POC Glucose 186 H 02/06/25 17:00: POC Glucose 140 H 02/06/25 21:00: Random Vancomycin 21.4 H 02/06/25 21:35: POC Glucose 169 H 02/07/25 05:46: WBC 9.2, RBC 3.46 L, Hgb 9.5 L, Hct 29.6 L, MCV 85.5, MCH 27.5, MCHC 32.1, RDW Std Deviation 42.4, RDW Coeff of Nathaniel 13.6, Plt Count 258, MPV 9.0, Immature Gran % (Auto) 1.900 H, Neut % (Auto) 66.1, Lymph % (Auto) 15.0 L, Lea % (Auto) 9.5, Eos % (Auto) 6.8 H, Baso % (Auto) 0.7, Absolute Neuts (auto) 6.1, Absolute Lymphs (auto) 1.37, Nucleated RBC % 0, Sodium 142, Potassium 3.8, Chloride 109 H, Carbon Dioxide 22.6, Anion Gap 10, BUN 40 H, Creatinine 1.75 H, Estim Creat Clear Calc 47.38 L, Est GFR (MDRD) Non-Af 40 L, BUN/Creatinine Ratio22.7 H, Glucose 150 H, Calcium 8.7, Random Vancomycin 17.6 H 02/07/25 06:23: POC Glucose 146 H Micro: Microbiology 02/05/25 Unknown Tissue - Toe Gram Stain - Final 02/05/25 Unknown Tissue - Toe Wound Culture - Preliminary Coag Negative Staph Coag Negative Staph#2 02/05/25 Unknown Tissue - Toe Gram Stain - Final 02/05/25 Unknown Tissue - Toe Wound Culture - Preliminary No growth-Final to follow 02/03/25 18:00 Wound - Left Foot Gram Stain - Final 02/03/25 18:00 Wound - Left Foot Wound Culture - Final Meth. resistant Staph. aureus Enterobacter cloacae complex Corynebacterium striatum 02/03/25 18:00 Wound - Left Foot Anaerobic Culture - Preliminary Checking for anaerobes, further studies to follow. 02/05/25 00:05 Nasal Secretion MRSA (PCR) - Final 02/02/25 21:25 Urine, Catheterized Urine Culture - Final Culture exhibits no growth. 02/02/25 20:42 Blood Culture (Wb) - Right Wrist Blood Culture - Preliminary No growth in 48 hours. 02/02/25 19:56 Blood Culture (Wb) - Left Hand Blood Culture - Preliminary No growth in 48 hours. 02/03/25 01:36 Mucosa - Nasopharyngeal Respiratory Panel (PCR) - Final 02/02/25 21:25 Urine, Clean Catch Legionella Antigen - Final 02/02/25 21:25 Urine, Clean Catch Streptococcus pneumoniae Antigen (M - Final Physical Exam Const alert and no apparent distress Constitutional Narrative: s/p left foot 5th ray debridement - there is hemostasis achieved, the wound siteis viable, no purulence, no visible abscess, the cellulitis left foot continues to improve, improved CFT left 5th toe, no new open wounds present or acute ischemia to left foot. No pain to left foot. Assessment & Plan Assessment/Plan (1) Cellulitis of left lower limb: (2) Acute osteomyelitis of metatarsal bone of left foot: (3) Diabetes mellitus with diabetic polyneuropathy: (4) Type 2 diabetes mellitus with foot ulcer: PLAN: Plan Reviewed diagnostic data. s/p left foot 5th ray debridement on 02/05/2025. Infection significantly improved left foot. Will continue to monitor. Vascular surgery is on consult and planning to get CTA. Patient remains on IV antibiotic therapy - Vanc and Zosyn. Reviewed culture findings, clearance fragment left 5th metatarsal and toe with no growth so far. No weightbearing left foot. Keep offloaded at all times. Podiatry will continue to follow. 02/07/25939 <Electronically signed by Kee Mejia DPM> Kee Mejia DPM Cosigner Signature (if applicable): CC: ~ Signed [facility] Work Phone: [phone]) 206-909707-27-2025 Progress note Author Hugo Cervantes [facility] Note Date/Time February 07, 2025 9:32 am [facility] Medical Records Department [address] [place] [address] Progress Note - Hospitalist 02/07/25917 MR#: [id number] Acct: [id number] Name: RICHARD ROY Rep #:[id number] : 1945 79 From: Hugo hollis MD PCP: Kuldip Cosby ASSESSMENT SPECIALIST-C Status:ADM IN Location: [facility] [id number] Subjective Subjective Doing well, wound looks well. Awaiting CT angio tomorrow to evaluate blood flowfor possible further intervention Objective Data Objective Data Vital Signs: Vital Signs Temp Pulse Resp BP Pulse Ox O2 Del Method O2 Flow Rate 98.3 F 62 20 H 153/61 H 94 Nasal Cannula 3 02/07/25 03:48 02/07/25 03:48 02/07/25 03:48 02/07/25 03:48 02/07/25 07:39 02/07/25 07:39 02/07/25 07:39 Oxygen Flow Rate (L/min) 3 Oxygen Delivery Method Nasal Cannula Weight: 265 lb 10.512 oz Body Mass Index (BMI) 36.0 Intake & Output: Intake and Output for Last 24 Hours 02/06/25 02/07/25 02/08/25 03:59 03:59 03:59 Intake Total 686.5 / 961.5 2772.5 / 2772.5 265 / 265 Output Total 2009 1200 / 1200 1200 / 1200 Balance -1323.5 / -1048.5 1572.5 / 1572.5 -935 / -935 Lab / Micro Data 02/07/25 05:46 02/07/25 05:46 Labs: Laboratory Results - last 24 hr 02/06/25 09:30: Vancomycin Trough 25.9 H 02/06/25 12:43: POC Glucose 186 H 02/06/25 17:00: POC Glucose 140 H 02/06/25 21:00: Random Vancomycin 21.4 H 02/06/25 21:35: POC Glucose 169 H 02/07/25 05:46: WBC 9.2, RBC 3.46 L, Hgb 9.5 L, Hct 29.6 L, MCV 85.5, MCH 27.5, MCHC 32.1, RDW Std Deviation 42.4, RDW Coeff of Nathaniel 13.6, Plt Count 258, MPV 9.0, Immature Gran % (Auto) 1.900 H, Neut % (Auto) 66.1, Lymph % (Auto) 15.0 L, Lea % (Auto) 9.5, Eos % (Auto) 6.8 H, Baso % (Auto) 0.7, Absolute Neuts (auto) 6.1, Absolute Lymphs (auto) 1.37, Nucleated RBC % 0, Sodium 142, Potassium 3.8, Chloride 109 H, Carbon Dioxide 22.6, Anion Gap 10, BUN 40 H, Creatinine 1.75 H, Estim Creat Clear Calc 47.38 L, Est GFR (MDRD) Non-Af 40 L, BUN/Creatinine Ratio22.7 H, Glucose 150 H, Calcium 8.7, Random Vancomycin 17.6 H 02/07/25 06:23: POC Glucose 146 H Micro: Microbiology 02/03/25 18:00 Wound - Left Foot Gram Stain - Final 02/03/25 18:00 Wound - Left Foot Wound Culture - Final Meth. resistant Staph. aureus Enterobacter cloacae complex Corynebacterium striatum 02/03/25 18:00 Wound - Left Foot Anaerobic Culture - Final No anaerobic bacteria isolated. 02/05/25 Unknown Tissue - Toe Gram Stain - Final 02/05/25 Unknown Tissue - Toe Wound Culture - Preliminary Coag Negative Staph Coag Negative Staph#2 02/05/25 Unknown Tissue - Toe Gram Stain - Final 02/05/25 Unknown Tissue - Toe Wound Culture - Preliminary No growth-Final to follow 02/05/25 00:05 Nasal Secretion MRSA (PCR) - Final 02/02/25 21:25 Urine, Catheterized Urine Culture - Final Culture exhibits no growth. 02/02/25 20:42 Blood Culture (Wb) - Right Wrist Blood Culture - Preliminary No growth in 48 hours. 02/02/25 19:56 Blood Culture (Wb) - Left Hand Blood Culture - Preliminary No growth in 48 hours. 02/03/25 01:36 Mucosa - Nasopharyngeal Respiratory Panel (PCR) - Final 02/02/25 21:25 Urine, Clean Catch Legionella Antigen - Final 02/02/25 21:25 Urine, Clean Catch Streptococcus pneumoniae Antigen (M - Final Physical Exam Narrative General: Alert, Oriented x1-2, Cooperative, No apparent distress HEENT: Atraumatic, PERRLA, EOMI, Normocephalic Oral: Moist Mucosa Neck: Supple, No JVD Lungs: Diminished, Normal air movement, No rhonchi, No wheeze, No rales Cardiovascular: Regular rate, Regular Rhythm, Normal S1, Normal S2, No murmurs Abdomen: Soft, Non Tender, Non-Distended, No Hepato-splenomegaly Extremities: No edema, Capillary Refill Less than 3 Seconds Skin: Postop dressing intact wound not evaluated as it was just dressed by podiatry Musculoskeletal: No Tenderness to Palpation of Joints or Extremities Neurological: No focal neurological deficits, moves all extremities Psych/Mental Status: Normal affect Assessment & Plan Assessment/Plan (1) Pneumonia: PLAN: Plan 1. Sepsis secondary to left sided pneumonia as well as diabetic foot ulcer on the left status post left fifth ray resection 02/05/2025/ANTHONY ? Continue with broad-spectrum antibiotics ? Appreciate podiatry's assistance plan for surgical intervention today. ? Will wean oxygen as able ? Cultures are pending, plan for infectious disease consultation on Saturday ? MRI was read as negative for osteomyelitis after surgery ? JOSTIN on the right is 0.88 with a left JOSTIN of 1.05, podiatry is consulted vascular surgery ? Creatinine has climbed to 1.83, will start him on IV fluids as it does not appear that he is obtaining significant p.o. intake. Appreciate speech therapy. Baseline creatinine is 1.1 2. Paroxysmal A-fib/history of AAA status post repair 2006/essential HTN/HLD/history of sick sinus syndrome status post pacemaker placement ? Continue with his home blood pressure medications ? Blood pressures appear stable ? Continue with cholesterol medications ? Can resume his home Eliquis ? Echo on 02/12/2023 with an EF of 55 to 60% with mild MV insufficiency, he does have a history of aortic valve replacement 3. DM2 ? Hold his home oral medications ? Continue with insulin ? Accu-Cheks ACHS ? Continue with sliding scale insulin ? Will monitor and make adjustments as necessary 4. GERD with a history of GI bleed ? He had been transitioned from Coumadin to Eliquis ? Continue with PPI and Carafate 5. Dementia/anxiety/depression ? Stable, his dementia may be a little bit worse secondary to the infection ? Continue with his home medications 6. BPH with obstruction ? Continue with his Flomax ? Stable 7. Iron deficiency anemia ? Stable ? Continue to monitor ? Continue with iron supplementation DVT: Eliquis Charges/Coding Visit Charges Inpatient E&M: 45786 Subs Hosp L2 02/07/25 0932 <Electronically signed by Hugo Cervantes MD> Cosigner Signature (if applicable): CC: ~ Signed [facility] Work Phone: [phone] 381-192307-27-2025 Consult note Author Haile Bautista [facility] Note Date/Time February 07, 2025 9:[address] [facility] Medical Records Department [address] [place] [address] Pharmacokinetic/Renal -Consult 02/06/252218 MR#: [id number] Acct: [id number] Name: RICHARD ROY Rep #:[id number] : 1945 79 From: Haile Bautista PCP: Kuldip Cosby ASSESSMENT SPECIALISTJay Jay Status:ADM IN Y Location: [facility] [id number]- [id number] Consult Antibiotic Management Pharmacy has been consulted to manage selected antibiotic: Vancomycin Type of Intervention Type of Consult: Follow-up Suspected Infection Suspected Infection: Sepsis, Skin/Soft tissue and Pneumonia Prior Doses of Antibiotics Prior Doses of Antibiotics Received/Current Regimen: Vancomycin 1250 mg Q12H last dose given 02/06/25 @ 0219 Labs Labs: Sodium 141 mmol/L (133-145) 02/06/25 05:18 Potassium 3.9 mmol/L (3.3-5.1) 02/06/25 05:18 Chloride 109 mmol/L (98-108) H 02/06/25 05:18 Carbon Dioxide 21.2 mmol/L (21.0-32.0) 02/06/25 05:18 Anion Gap 11 (5-15) 02/06/25 05:18 BUN 40 mg/dL (4-19) H 02/06/25 05:18 Creatinine 1.83 mg/dL (0.70-1.20) H 02/06/25 05:18 Est GFR (MDRD) Non-Af 38 (>60) L 02/06/25 05:18 BUN/Creatinine Ratio 22.0 RATIO (10-20) H 02/06/25 05:18 Glucose 150 mg/dL (70-99) H 02/06/25 05:18 Vancomycin Trough 25.9 ug/mL (5.0-15.0) H 02/06/25 09:30 Random Vancomycin 21.4 ug/mL (0.0-15.0) H 02/06/25 21:00 Microbiology Microbiology: Microbiology 02/05/25 Unknown Tissue - Toe Gram Stain - Final 02/05/25 Unknown Tissue - Toe Gram Stain - Final 02/03/25 18:00 Wound - Left Foot Gram Stain - Final 02/03/25 18:00 Wound - Left Foot Wound Culture - Preliminary Meth. resistant Staph. 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 02/05/25 00:05 Nasal Secretion MRSA (PCR) - Final 02/02/25 21:25 Urine, Catheterized Urine Culture - Final Culture exhibits no growth. 02/02/25 20:42 Blood Culture (Wb) - Right Wrist Blood Culture - Preliminary No growth in 48 hours. 02/02/25 19:56 Blood Culture (Wb) - Left Hand Blood Culture - Preliminary No growth in 48 hours. 02/03/25 01:36 Mucosa - Nasopharyngeal Respiratory Panel (PCR) - Final 02/02/25 21:25 Urine, Clean Catch Legionella Antigen - Final 02/02/25 21:25 Urine, Clean Catch Streptococcus pneumoniae Antigen (M - Final Dosing Weight Weight used for dosin lb 5.601 oz Estimated Creatinine Clearance Estimated Creatinine Clearance: ~ 45 Goal Trough Goal Trough: 15-20 mcg/mL Pharmacy Plan for Drug Dosing Pharmacy Plan for Drug Dosing: Vancomycin random = 21.4, continue to hold, subsequent random level in the AM. Pharmacy Service will continue to monitor and adjust dosing as required. Follow-Up Labs Follow-Up Labs: Trough: Vancomycin Date/Time Labs Ordered Labs to be done on [date and time ordered]: 02/07/25 @ 0600 02/06/252221 <Electronically signed by Haile huang> Date _ Haile Bautista 02/07/2518 <Electronically signed by Hugo painter MD> Cosigner Signature (if applicable): Date Hugo Cervantes MD CC: ~ Signed [facility] Work Phone: [phone]) [phone] Consult note Author Haile Bautista [facility] Note Date/Time February 07, 2025 9:[address] [facility] Medical Records Department [address] [place] [address] Pharmacokinetic/Renal -Consult 02/07/25 0650 MR#: [id number] Acct: [id number] Name: RICHARD ROY Rep #:[id number] : 1945 79 From: Haile Bautista PCP: Kuldip Cosby ASSESSMENT SPECIALISTJay Jay Status:ADM IN Y Location: [facility] [id number]- [id number] Consult Antibiotic Management Pharmacy has been consulted to manage selected antibiotic: Vancomycin Type of Intervention Type of Consult: Follow-up Suspected Infection Suspected Infection: Sepsis, Skin/Soft tissue and Pneumonia Prior Doses of Antibiotics Prior Doses of Antibiotics Received/Current Regimen: Vancomycin 1250 mg Q12H last dose given 02/06/25 @ 0219 Labs Labs: Sodium 142 mmol/L (133-145) 02/07/25 05:46 Potassium 3.8 mmol/L (3.3-5.1) 02/07/25 05:46 Chloride 109 mmol/L (98-108) H 02/07/25 05:46 Carbon Dioxide 22.6 mmol/L (21.0-32.0) 02/07/25 05:46 Anion Gap 10 (5-15) 02/07/25 05:46 BUN 40 mg/dL (4-19) H 02/07/25 05:46 Creatinine 1.75 mg/dL (0.70-1.20) H 02/07/25 05:46 Est GFR (MDRD) Non-Af 40 (>60) L 02/07/25 05:46 BUN/Creatinine Ratio 22.7 RATIO (10-20) H 02/07/25 05:46 Glucose 150 mg/dL (70-99) H 02/07/25 05:46 Vancomycin Trough 25.9 ug/mL (5.0-15.0) H 02/06/25 09:30 Random Vancomycin 17.6 ug/mL (0.0-15.0) H 02/07/25 05:46 Microbiology Microbiology: Microbiology 02/03/25 18:00 Wound - Left Foot Gram Stain - Final 02/03/25 18:00 Wound - Left Foot Wound Culture - Final Meth. resistant Staph. aureus Enterobacter cloacae complex Corynebacterium striatum 02/03/25 18:00 Wound - Left Foot Anaerobic Culture - Preliminary Checking for anaerobes, further studies to follow. 02/05/25 Unknown Tissue - Toe Gram Stain - Final 02/05/25 Unknown Tissue - Toe Gram Stain - Final 02/05/25 00:05 Nasal Secretion MRSA (PCR) - Final 02/02/25 21:25 Urine, Catheterized Urine Culture - Final Culture exhibits no growth. 02/02/25 20:42 Blood Culture (Wb) - Right Wrist Blood Culture - Preliminary No growth in 48 hours. 02/02/25 19:56 Blood Culture (Wb) - Left Hand Blood Culture - Preliminary No growth in 48 hours. 02/03/25 01:36 Mucosa - Nasopharyngeal Respiratory Panel (PCR) - Final 02/02/25 21:25 Urine, Clean Catch Legionella Antigen - Final 02/02/25 21:25 Urine, Clean Catch Streptococcus pneumoniae Antigen (M - Final Dosing Weight Weight used for dosin lb 12.149 oz Estimated Creatinine Clearance Estimated Creatinine Clearance: ~ 47 Goal Trough Goal Trough: 15-20 mcg/mL Pharmacy Plan for Drug Dosing Pharmacy Plan for Drug Dosing: Vancomycin random level = 17.6, resume dosing at 750 mg Q12H Pharmacy Service will continue to monitor and adjust dosing as required. Follow-Up Labs Follow-Up Labs: Trough: Vancomycin Date/Time Labs Ordered Labs to be done on [date and time ordered]: 02/08/25 @ 1830 02/07/25 0651 <Electronically signed by Haile huang> Date _ Haile Bautista 02/07/25 0918 <Electronically signed by Hugo painter MD> Cosigner Signature (if applicable): Date Hugo Cervantes MD CC: ~ Signed [facility] Work Phone: [phone]) 121-585507-26-2025 Consult note Author Hugo Interiano [facility] Note Date/Time February 06, 2025 4:[address] [facility] Medical Records Department [address] [place] [address] Pharmacokinetic/Renal -Consult 02/06/25 1630 MR#: [id number] Acct: [id number] Name: RICHARD ROY Rep #:[id number] : 1945 79 From: Hugo Garcia [facility] PCP: Primghar,Kuldip ASSESSMENT SPECIALIST-C Status:ADM IN Y Location: [facility] [id number]- 1 Consult Antibiotic Management Pharmacy has been consulted to manage selected antibiotic: Vancomycin Type of Intervention Type of Consult: Follow-up Suspected Infection Suspected Infection: Sepsis, Skin/Soft tissue and Pneumonia Labs Labs: Sodium 141 mmol/L (133-145) 02/06/25 05:18 Potassium 3.9 mmol/L (3.3-5.1) 02/06/25 05:18 Chloride 109 mmol/L (98-108) H 02/06/25 05:18 Carbon Dioxide 21.2 mmol/L (21.0-32.0) 02/06/25 05:18 Anion Gap 11 (5-15) 02/06/25 05:18 BUN 40 mg/dL (4-19) H 02/06/25 05:18 Creatinine 1.83 mg/dL (0.70-1.20) H 02/06/25 05:18 Est GFR (MDRD) Non-Af 38 (>60) L 02/06/25 05:18 BUN/Creatinine Ratio 22.0 RATIO (10-20) H 02/06/25 05:18 Glucose 150 mg/dL (70-99) H 02/06/25 05:18 Vancomycin Trough 25.9 ug/mL (5.0-15.0) H 02/06/25 09:30 Random Vancomycin 17.8 ug/mL (0.0-15.0) H 02/04/25 21:07 Microbiology Microbiology: Microbiology 02/05/25 Unknown Tissue - Toe Gram Stain - Final 02/05/25 Unknown Tissue - Toe Gram Stain - Final 02/03/25 18:00 Wound - Left Foot Gram Stain - Final 02/03/25 18:00 Wound - Left Foot Wound Culture - Preliminary Meth. resistant Staph. 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 02/05/25 00:05 Nasal Secretion MRSA (PCR) - Final 02/02/25 21:25 Urine, Catheterized Urine Culture - Final Culture exhibits no growth. 02/02/25 20:42 Blood Culture (Wb) - Right Wrist Blood Culture - Preliminary No growth in 48 hours. 02/02/25 19:56 Blood Culture (Wb) - Left Hand Blood Culture - Preliminary No growth in 48 hours. 02/03/25 01:36 Mucosa - Nasopharyngeal Respiratory Panel (PCR) - Final 02/02/25 21:25 Urine, Clean Catch Legionella Antigen - Final 02/02/25 21:25 Urine, Clean Catch Streptococcus pneumoniae Antigen (M - Final Goal Trough Goal Trough: 15-20 mcg/mL Pharmacy Plan for Drug Dosing Pharmacy Plan for Drug Dosing: VANCOMYCIN LEVEL RECEIVED Current Vancomycin Dose: 1250mg q12h (,22) Number of Doses Received: x3 of current dose Vancomycin Level: 25.9 Hours Since Last Dose: 7.25 hours since last 1250mg dose Renal Function: SrCr 1.83 Renal Function Trend: SrCr increasing (was 1.10 on 02/03 and 1.49 on 02/04) Lab/Micro: Vancomycin Plan/Comments: due to increasing SrCr and elevated trough, recommend holding vancomycin and checking a random level 02/06/25 at 2130 Pending Level: 02/06/25 at 2130 Pharmacy Service will continue to monitor and adjust dosing as required. Follow-Up Labs Follow-Up Labs: Trough: Vancomycin (02/06/25 at 2130 (random level)) 02/06/25 1631 <Electronically signed by Hugo Gallardo [facility]> Date _ Hugo Interiano [facility] Cosigner Signature (if applicable): Date CC: ~ Signed [facility] Work Phone: [phone]) 523-539407-26-2025 Progress note Author Kee Mejia [facility] Note Date/Time February 06, 2025 10:5 8am [facility] Medical Records Department [address] [place] [address] Progress Note 02/06/25 1054 MR#: [id number] Acct: [id number] Name: RICHARD ROY Rep #:[id number] : 1945 79 From: Kee Mejia DPM PCP: Kuldip Cosby ASSESSMENT SPECIALIST-C Status:ADM IN Location: [place] [id number] Subjective Subjective Patient was seen this morning for follow up on left foot. He is resting comfortably in bed. No new complaints. No fever noted. Objective Data Objective Data Vital Signs: Vital Signs Temp Pulse Resp BP Pulse Ox O2 Del Method O2 Flow Rate 98.4 F 65 20 H 148/71 H 95 Nasal Cannula 2 02/06/25 10:30 02/06/25 10:30 02/06/25 10:30 02/06/25 10:30 02/06/25 10:30 02/06/25 10:30 02/06/25 10:30 Oxygen Flow Rate (L/min) 2 Oxygen Delivery Method Nasal Cannula Weight: 119.4 kg Body Mass Index (BMI) 35.6 Intake & Output: Intake and Output for Last 24 Hours 02/04/25 02/05/25 02/06/25 23:59 23:59 23:59 Intake Total 1811.25 / 1811.25 1170.25 / 1270.25 425 / 425 Output Total 850 / 850 910 / 2010 1200 / 1200 Balance 961.25 / 961.25 260.25 / -739.75 -775 / -775 Lab / Micro Data 02/06/25 05:18 02/06/25 05:18 Labs: Laboratory Results - last 24 hr 02/05/25 11:13: POC Glucose 153 H 02/05/25 16:40: POC Glucose 152 H 02/05/25 22:36: POC Glucose 168 H 02/06/25 05:18: WBC 9.9, RBC 3.55 L, Hgb 9.9 L, Hct 30.5 L, MCV 85.9, MCH 27.9, MCHC 32.5, RDW Std Deviation 42.9, RDW Coeff of Nathaniel 13.6, Plt Count 262, MPV 9.2, Immature Gran % (Auto) 0.800, Neut % (Auto) 74.2 H, Lymph % (Auto) 10.1 L, Lea % (Auto) 8.6, Eos % (Auto) 5.9 H, Baso % (Auto) 0.4, Absolute Neuts (auto) 7.3, Absolute Lymphs (auto) 1.00, Nucleated RBC % 0, Sodium 141, Potassium 3.9, Chloride 109 H, Carbon Dioxide 21.2, Anion Gap 11, BUN 40 H, Creatinine 1.83 H, Estim Creat Clear Calc 45.10 L, Est GFR (MDRD) Non-Af 38 L, BUN/Creatinine Ratio22.0 H, Glucose 150 H, Calcium 8.8 02/06/25 06:22: POC Glucose 147 H 02/06/25 09:30: Vancomycin Trough 25.9 H Micro: Microbiology 02/03/25 18:00 Wound - Left Foot Gram Stain - Final 02/03/25 18:00 Wound - Left Foot Wound Culture - Preliminary Meth. resistant Staph. 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 02/05/25 00:05 Nasal Secretion MRSA (PCR) - Final 02/02/25 21:25 Urine, Catheterized Urine Culture - Final Culture exhibits no growth. 02/02/25 20:42 Blood Culture (Wb) - Right Wrist Blood Culture - Preliminary No growth in 48 hours. 02/02/25 19:56 Blood Culture (Wb) - Left Hand Blood Culture - Preliminary No growth in 48 hours. 02/03/25 01:36 Mucosa - Nasopharyngeal Respiratory Panel (PCR) - Final 02/02/25 21:25 Urine, Clean Catch Legionella Antigen - Final 02/02/25 21:25 Urine, Clean Catch Streptococcus pneumoniae Antigen (M - Final Radiography Diagnostic Testing: Radiology Impression Foot X-Ray 02/05/25 15:05 IMPRESSION: Postsurgical change. No complication. Reading Location: [id number] Physical Exam Const alert and no apparent distress Constitutional Narrative: s/p left foot 5th ray debridement - there is some active bleeding upon removing the dressing, the wound site iis viable, no purulence, no visible abscess, the cellulitis left foot is much improved, there is slight delay in CFT left 5th toe, no new open wounds present or acute ischemia to left foot. No pain to left foot. Assessment & Plan Assessment/Plan (1) Cellulitis of left lower limb: (2) Acute osteomyelitis of metatarsal bone of left foot: (3) Diabetes mellitus with diabetic polyneuropathy: (4) Type 2 diabetes mellitus with foot ulcer: PLAN: Plan Reviewed diagnostic data. s/p left foot 5th ray debridement on 02/05/2025. Infection significantly improved clinically today. There is slight delayed CFT to left 5th toe - will continue to monitor. Vascular surgery is on consult and planning to get CTA. Patient remains on IV antibiotic therapy. No weightbearing left foot. Keep offloaded at all times. Podiatry will continue to follow. 02/06/25 105 <Electronically signed by Kee Mejia DPM> Kee Mejia DPM Cosigner Signature (if applicable): CC: ~ Signed ADDENDUM by WINSOME Mejia on 02/06/25 at 1058 Addendum Wound care left foot: betadine solution, gauze and kerlix dressing - change daily 02/06/251057 <Electronically signed by Kee doll DPM> Date _ Kee Mejia DPM Cosigner Signature (if applicable): Date cc: ~* Signed [facility] Work Phone: 1(855) 483-120607-26-2025 Progress note Author Hugo Cervantes [facility] Note Date/Time February 06, 2025 10:2 6am [facility] Medical Records Department [address] [place] [address] Progress Note - Hospitalist 02/06/2506 MR#: [id number] Acct: [id number] Name: RICHARD ROY Rep #:[id number] : 1945 79 From: Hugo hollis MD PCP: Kuldip Cosby Status:ADM IN Location: [place] [address] Subjective Subjective No issues overnight, tolerated surgery fairly well. Lab work is unremarkable. Okay to start Eliquis again per podiatry Objective Data Objective Data Vital Signs: Vital Signs Temp Pulse Resp BP Pulse Ox O2 Del Method O2 Flow Rate 98.9 F 67 15 141/61 H 93 Nasal Cannula 3 02/06/25 02:34 02/06/25 02:34 02/06/25 02:34 02/06/25 02:34 02/06/25 07:59 02/06/25 07:59 02/06/25 07:59 Oxygen Flow Rate (L/min) 3 Oxygen Delivery Method Nasal Cannula Weight: 263 lb 3.711 oz Body Mass Index (BMI) 35.6 Intake & Output: Intake and Output for Last 24 Hours 02/05/25 02/06/25 02/07/25 03:59 03:59 03:59 Intake Total 2395.00 / 2395.00 686.5 / 961.5 275 / 275 Output Total 850 / 850 2009 100 / 100 Balance 1545.00 / 1545.00 -1323.5 / -1048.5 175 / 175 Lab / Micro Data 02/06/25 05:18 02/06/25 05:18 Labs: Laboratory Results - last 24 hr 02/05/25 06:41: Sodium 141, Potassium 3.8, Chloride 110 H, Carbon Dioxide 20.0 L, Anion Gap 12, BUN 41 H, Creatinine 1.81 H, Estim Creat Clear Calc 45.33 L, EstGFR (MDRD) Non-Af 38 L, BUN/Creatinine Ratio 22.6 H, Glucose 166 H, Calcium 8.8 02/05/25 09:27: POC Glucose 159 H 02/05/25 11:13: POC Glucose 153 H 02/05/25 16:40: POC Glucose 152 H 02/05/25 22:36: POC Glucose 168 H 02/06/25 05:18: WBC 9.9, RBC 3.55 L, Hgb 9.9 L, Hct 30.5 L, MCV 85.9, MCH 27.9, MCHC 32.5, RDW Std Deviation 42.9, RDW Coeff of Nathaniel 13.6, Plt Count 262, MPV 9.2, Immature Gran % (Auto) 0.800, Neut % (Auto) 74.2 H, Lymph % (Auto) 10.1 L, Lea % (Auto) 8.6, Eos % (Auto) 5.9 H, Baso % (Auto) 0.4, Absolute Neuts (auto) 7.3, Absolute Lymphs (auto) 1.00, Nucleated RBC % 0, Sodium 141, Potassium 3.9, Chloride 109 H, Carbon Dioxide 21.2, Anion Gap 11, BUN 40 H, Creatinine 1.83 H, Estim Creat Clear Calc 45.10 L, Est GFR (MDRD) Non-Af 38 L, BUN/Creatinine Ratio22.0 H, Glucose 150 H, Calcium 8.8 02/06/25 06:22: POC Glucose 147 H Micro: Microbiology 02/03/25 18:00 Wound - Left Foot Gram Stain - Final 02/03/25 18:00 Wound - Left Foot Wound Culture - Preliminary Meth. resistant Staph. 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 field kiln burner Gram positive organism 02/05/25 00:05 Nasal Secretion MRSA (PCR) - Final 02/02/25 21:25 Urine, Catheterized Urine Culture - Final Culture exhibits no growth. 02/02/25 20:42 Blood Culture (Wb) - Right Wrist Blood Culture - Preliminary No growth in 48 hours. 02/02/25 19:56 Blood Culture (Wb) - Left Hand Blood Culture - Preliminary No growth in 48 hours. 02/03/25 01:36 Mucosa - Nasopharyngeal Respiratory Panel (PCR) - Final 02/02/25 21:25 Urine, Clean Catch Legionella Antigen - Final 02/02/25 21:25 Urine, Clean Catch Streptococcus pneumoniae Antigen (M - Final Radiography Diagnostic Testing: Radiology Impression Foot X-Ray 02/05/25 15:05 IMPRESSION: Postsurgical change. No complication. Reading Location: [facility] Physical Exam Narrative General: Alert, Oriented x1-2, Cooperative, No apparent distress HEENT: Atraumatic, PERRLA, EOMI, Normocephalic Oral: Moist Mucosa Neck: Supple, No JVD Lungs: Diminished, Normal air movement, No rhonchi, No wheeze, No rales Cardiovascular: Regular rate, Regular Rhythm, Normal S1, Normal S2, No murmurs Abdomen: Soft, Non Tender, Non-Distended, No Hepato-splenomegaly Extremities: No edema, Capillary Refill Less than 3 Seconds Skin: Left lateral foot redness, dressing intact Musculoskeletal: No Tenderness to Palpation of Joints or Extremities Neurological: No focal neurological deficits, moves all extremities Psych/Mental Status: Normal affect Assessment & Plan Assessment/Plan (1) Pneumonia: PLAN: Plan 1. Sepsis secondary to left sided pneumonia as well as diabetic foot ulcer on the left status post left fifth ray resection 02/05/2025/ANTHONY ? Continue with broad-spectrum antibiotics ? Appreciate podiatry's assistance plan for surgical intervention today. ? Will wean oxygen as able ? Cultures are pending, plan for infectious disease consultation on Saturday ? MRI is pending read ? JOSTIN on the right is 0.88 with a left JOSTIN of 1.05, podiatry is consulted vascular surgery ? Creatinine has climbed to 1.83, will start him on IV fluids as it does not appear that he is obtaining significant p.o. intake. Appreciate speech therapy. Baseline creatinine is 1.1 2. Paroxysmal A-fib/history of AAA status post repair 2006/essential HTN/HLD/history of sick sinus syndrome status post pacemaker placement ? Continue with his home blood pressure medications ? Blood pressures appear stable ? Continue with cholesterol medications ? Will hold his home Eliquis for the possibility of surgery ? Echo on 02/12/2023 with an EF of 55 to 60% with mild MV insufficiency, he does have a history of aortic valve replacement 3. DM2 ? Hold his home oral medications ? Continue with insulin ? Accu-Cheks ACHS ? Continue with sliding scale insulin ? Will monitor and make adjustments as necessary 4. GERD with a history of GI bleed ? He had been transitioned from Coumadin to Eliquis ? Will hold Eliquis in preparation for possible surgery ? Continue with PPI and Carafate 5. Dementia/anxiety/depression ? Stable, his dementia may be a little bit worse secondary to the infection ? Continue with his home medications 6. BPH with obstruction ? Continue with his Flomax ? Stable 7. Iron deficiency anemia ? Stable ? Continue to monitor ? Continue with iron supplementation DVT: Lovenox Charges/Coding Visit Charges Inpatient E&M: 09695 Subs Hosp L2 02/06/25 1026 <Electronically signed by Hugo Cervantes MD> Cosigner Signature (if applicable): CC: ~ Signed [facility] Work Phone: 1(685) 987-952607-25-2025 Consult note Author Kareem Pabon [facility] Note Date/Time February 05, 2025 2:[address] [facility] Medical Records Department [address] [place] [place] [address] Anesthesia Postop Eval I 02/05/25 1422 MR#: [id number] Acct: [id number] Name: RICHARD ROY Rep #:[id number] : 1945 79 From: Kareem REDMAN PCP: Kuldip Cosby Status:ADM IN Y Race: C Location: [place] [address] Anesthesia: Postop Eval I Current Vital Signs Temperature: 98.9 F Pulse Rate: 60 Blood Pressure: 155/75 Respiratory Rate: 16 Pulse Ox: 100 Assessment Airway patent: Yes Spontaneous unlabored respirations: Yes nausea: No Vomiting: No Anesthesia Complication: No Fluid Hydration Crystalloid volume administer (ml): 100 Total IV fluid infused: 100 Progress Note Anesthesia document: Postop Eval 1 completed: Yes 02/05/251422 <Electronically signed by Kareem Pabon CRNA> Date _ Kareem Pabon CRNA Cosigner Signature: Date CC: ~ Signed [facility] Work Phone: [phone]) 494-387007-25-2025 Radiology Diagnostic study [facility]07-25-2025 Consult note Author [facility] Note Date/Time February 05, 2025 1:[address] [facility] Medical Records Department [address] [place] [address] Pre-Anesthesia Evaluation 02/05/25 1258 MR#: [id number] Acct: [id number] Name: RICHARD ROY Rep #:[id number] : 1945 79 From: Vega Hahn MD PCP: Primghar,Kuldip ASSESSMENT SPECIALIST-C Status:ADM IN Y Race: C Location: [address] ASA Classification* ASA Classification ASA Classification: 4 Assessment & Plan Anesthesia* Anesthesia Assessment Anesthesia Assessment: Discussed sedation and/or anesthesia options, risks, benefits, and alternatives with patient/parents/legal guardian/POA. Questions invited. The patient/parents/legal guardian/POA seems to understand and agrees to proceedwith anesthesia plan. Reviewed the physical assessment, medical history, allergy history and patient home medications list prior to surgery/procedure/anesthetic and documented any changes. Performed airway and anesthesia risk assessments. Anesthesia Type Anesthesia Type: MAC History Source History Obtained from:: Patient and Chart Anesthesia Focused Assessment* Temperature: 97.9 F Pulse Rate: 60 Blood Pressure: 136/58 Respiratory Rate: 16 Pulse Ox: 98 Oxygen Delivery Method: Nasal Cannula Oxygen Flow Rate (L/min): 3.5 Airway Assessment Mouth opens: >3 cm Mallampati Score: IV Teeth Condition: Partial (Upper partials out.) Neck Range of motion (ROM): Limited ROM (Severe Restriction) Labs Anesthesia Preop lab: CBC WBC 10.7 K/mm3 (4.4-11.0) 02/05/25 06:41 02/05/25 RBC 3.52 M/mm3 (4.6-6.2) L 02/05/25 06:41 02/05/25 Hgb 9.7 g/dL (13.0-16.5) L 02/05/25 06:41 02/05/25 Hct 30.2 % (40-54) L 02/05/25 06:41 02/05/25 Plt Count 232 K/mm3 (150-450) 02/05/25 06:41 02/05/25 CHEMISTRY Potassium 3.8 mmol/L (3.3-5.1) 02/05/25 06:41 02/05/25 Sodium 141 mmol/L (133-145) 02/05/25 06:41 02/05/25 Magnesium 1.7 mg/dL (1.5-2.2) 02/03/25 06:31 02/03/25 Phosphorus 2.6 mg/dL (2.5-4.9) 01/27/23 18:20 01/27/23 BUN 41 mg/dL (4-19) H 02/05/25 06:41 02/05/25 Creatinine 1.81 mg/dL (0.70-1.20) H 02/05/25 06:41 Glucose 166 mg/dL (70-99) H 02/05/25 06:41 02/05/25 POC Glucose 153 mg/dL (74-106) H 02/05/25 11:13 02/05/25 TSH 1.55 uIU/mL (0.358-3.74) 01/15/24 07:00 COAG PT 17.3 SECONDS (11.7-14.9) H 02/02/25 19:56 01/13 09/08 Pre-Assessment Diagnosis/Proposed Procedure Planned Operative Procedure(s): Left debridement foot wound with fifth ray amputation Anesthesia History 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 When Was Last Pacemaker Check QUESTION #4 FULL TEXT: You/Your Family Experience fever (hyperthermia) with Anesthesia Last Oral Intake Last Oral intake: Last Oral Intake NPO since 00:00 02/05/25 11:18 Meds taken in AM with sips of Yes 02/05/25 11:18 water? Meds patient instructed to see 02/05/25 11:18 take am of surgery PONV PONV - wheat shipper: PONV - wheat shipper Female HX of Motion Sickness HX of N/V After Surgery Non-Smoker Duration of Surgery greater than 60 minutes Number of Risk Factors PONV Score Height & Weight Height & Weight: Anesthesia: Height & Weight Height 6 ft 02/05/25 11:18 Weight: 118 kg 02/05/25 11:18 Body Mass Index (BMI) 35.2 02/05/25 11:18 Respiratory Assessment Respiratory Assessment - wheat shipper: Respiratory Tract Infection Hx - wheat shipper Hx Respiratory Tract Infection Yes: pneumonia 02/05/25 02:17 STOP Sleep Apnea STOP Sleep Apnea - wheat shipper: STOP Sleep Apnea - wheat shipper Hx Hypertension Yes 02/03/25 10:30 Hx Sleep Apnea No 02/03/25 01:28 CPAP No 02/11/23 20:40 BIPAP No 02/11/23 20:40 Do you snore loudly (louder No 02/03/25 01:28 than talking or can be heard Do you often feel tired/ No 02/03/25 01:28 fatigued/ sleepy during daytime? Has anyone observed you stop No 02/03/25 01:28 breathing during sleep? STOP Results Negative 02/03/25 01:28 QUESTION #5 FULL TEXT : Do you snore loudly (louder than talking or can be heard through closed doors)? 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 Specify any problems Hx of Preganancy in last 3 N/A 02/03/25 01:28 Months Nurse Filling Out Transfusion & Questions: Date: Time: Patient unable to answer at Yes 02/03/25 01:28 this time (ie. confused, unrespo /Reproduction History /Reproductive History - wheat shipper: /Reproductive Hx- wheat shipper Hx Now Gestational Age (in weeks): EDC: Hx Hx Para Hx Section SAB Active Medications Active Medications: Current Medications Generic Name Dose Route Start Last Admin Trade Name Freq PRN Reason Stop Dose Admin Acetaminophen 650 mg 02/03/25 01:20 02/05/25 00:05 Acetaminophen 325 Mg Tablet PO 650 mg Q4H PRN PRN Administration Fever, pain 1-04/23 Al Hydroxide/Mg Hydroxide 30 ml 02/03/25 01:20 Mag Hydrox/Al Hydrox/Simeth 30 Ml Udc PO Q6H PRN PRN Gastric Burning Albuterol Sulfate 2.5 mg 02/03/25 01:20 Albuterol 2.5 Mg/3 Ml Vial.Neb. INHALATION Q2H PRN PRN Dyspnea, wheezing Atorvastatin Calcium 40 mg 02/03/25 22:00 02/04/25 22:15 Atorvastatin Calcium 40 Mg Tablet PO 40 mg QHS FRED Administration Calamine/Phenol 1 applic 02/03/25 10:00 02/05/25 09:48 Menthol/Lanolin/Calamine/Znox 113 Gm Tube TOPICAL 1 applic 4X/DAY FRED Administration Protocol Enoxaparin Sodium 40 mg 02/04/25 10:00 02/05/25 09:11 Enoxaparin 40 Mg/0.4 Ml Syringe SC Not Given DAILY FRED Ferrous Sulfate 325 mg 02/03/25 12:00 02/05/25 11:23 Ferrous Sulfate 325 Mg Tablet PO Not Given DAILY@1200 [facility] Glucagon 1 mg 02/03/25 01:20 Glucagon 1 Mg/Ml Syringe IM X1 PRN HYPOGLYCEMIA Protocol Guaifenesin 20 ml 02/03/25 01:20 Guaifenesin 10 Ml Udc (200mg/10ml) PO Q4H PRN PRN COUGH Hydralazine HCl 10 mg 02/03/25 01:20 Hydralazine 20 Mg/Ml Vial IV Q4H PRN PRN SBP > 160 Protocol Vancomycin IV-PHARMACY TO DOSE 500 mls @ 250 mls/hr 02/03/25 01:20 1 each/ Sodium Chloride IV PRN PRN Rx to Dose Protocol Piperacillin Sod/Tazobactam 50 mls @ 12.5 mls/hr 02/03/25 06:00 02/05/25 09:10 Sod 3.375 gm/ Sodium Chloride IV Infused Q8 FRED Infusion Dextrose 250 mls @ 0 mls/hr 02/03/25 01:20 Dextrose 10%-Water IV .Q0M PRN HYPOGLYCEMIA Protocol As Directed Vancomycin HCl 1,250 mg/ 275 mls @ 167 mls/hr 02/04/25 22:00 02/05/25 12:13 Sodium Chloride IV Infused Q12H FRED Infusion Lactated Ringer's 1,000 mls @ 15 mls/hr 02/05/25 12:30 02/05/25 12:44 IV 15 mls/hr .Q48H FRED Administration Insulin Glargine 15 unit 02/03/25 10:00 02/05/25 09:28 Insulin Glargine-Yfgn 100 Unit/Ml Pen SC Not Given DAILY FRED Insulin Human Lispro 0 unit 02/03/25 07:00 02/05/25 11:23 Insulin Lispro 100 Unit/Ml Insuln.Pen SC Not Given ACHS FRED Protocol Loperamide HCl 2 mg 02/03/25 01:20 Loperamide 2 Mg Capsule PO Q4H PRN PRN loose stool Losartan Potassium 50 mg 02/03/25 10:00 02/05/25 09:47 Losartan Potassium 50 Mg Tablet PO 50 mg DAILY FRED Administration Protocol Melatonin 3 mg 02/03/25 22:00 02/04/25 22:15 Melatonin 3 Mg Tablet PO 3 mg QHS FRED Administration Memantine 10 mg 02/03/25 10:00 02/05/25 09:47 Memantine Hydrochloride 10 Mg Tablet PO 10 mg BID FRED Administration Metoprolol Succinate 25 mg 02/03/25 10:00 02/05/25 09:47 Metoprolol(Xl)Succ 25 Mg Tablet PO 25 mg DAILY FRED Administration Protocol Nystatin 1 applic 02/05/25 10:00 02/05/25 09:48 Nystatin Powder 15gm Bottle TOPICAL 1 applic BID [facility] Administration Protocol Ondansetron HCl 4 mg 02/03/25 01:20 Ondansetron 4 Mg/2 Ml Vial IV Q8H PRN PRN NAUSEA/VOMITING Pantoprazole Sodium 40 mg 02/03/25 10:00 02/05/25 09:47 Pantoprazole Sodium 40 Mg Tablet PO 40 mg BID FRED Administration Paroxetine HCl 30 mg 02/03/25 10:00 02/05/25 09:48 Paroxetine 10 Mg Tablet PO 30 mg DAILY FRED Administration Prochlorperazine Edisylate 5 mg 02/03/25 01:20 Prochlorperazine 10 Mg/2 Ml Vial IV Q4H PRN PRN Breakthrough nausea/vomiting Senna/Docusate Sodium 2 tablet 02/03/25 01:20 Senna/Docusate Sodium 1 Tablet PO BID PRN PRN Constipation Sodium Chloride 10 - 40 ml 02/03/25 02:26 02/05/25 10:04 0.9% Saline Lock 10 Ml Syringe IV 10 ml UD PRN Administration SALINE FLUSH Sucralfate 1 gm 02/03/25 07:00 02/05/25 09:48 Sucralfate 1 Gm Tablet PO Not Given 0700,1100,1600 [facility] Tamsulosin HCl 0.4 mg 02/03/25 22:00 02/04/25 22:14 Tamsulosin Hcl 0.4 Mg Capsule PO 0.4 mg QHS FRED Administration Vancomycin Protocol 1 lab 02/06/25 08:30 Vancomycin Trough/Random Due 02/06/25 10:30 DAILY FRED PFSH Medical History MRSA (methicillin resistant staph aureus) culture positive History of stress test History of echocardiogram [...] 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) Home Medications ?Medication ?Instructions ?Recorded ?Last Taken ?Type losartan 50 mg tablet 50 mg PO DAILY blood pressur e 03/24/18 06/01/24 History atorvastatin 40 mg tablet 40 mg PO QHS cholesterol 03/0105/31/24 History tamsulosin 0.4 mg capsule 0.4 mg PO QHS PROSTATE 03/0205/31/24 History cholecalciferol (vitamin D3) 1,250 1,250 mcg PO MO SUP PLEMENT 01/21/23 06/01/24 History mcg (50,000 unit) tablet metformin 1,000 mg tablet 1,000 mg PO BID DM 01/21/23 06/01/24 History insulin glargine 100 unit/mL (3 15 unit (0.15 mL) subc ut DAILY 01/26/23 06/01/24 Rx mL) subcutaneous pen (Lantus diabetes #15 mL Solostar U-100 Insulin) pantoprazole 40 mg tablet,delayed 40 mg PO BID #60 tab s 02/05/23 06/01/24 Rx release sucralfate 1 gram tablet 1 g PO 0700,1100,1600 #90 ta bs 02/05/23 06/01/24 Rx melatonin 3 mg tablet 3 mg PO QHS Insomnia 3 02/10/23 History memantine 10 mg tablet 10 mg PO BID #0 tabs 3 06/01/24 Rx bisacodyl 10 mg rectal suppository 10 mg WV DAILY PRN constipation 05/30/23 Unknown History loperamide 2 mg capsule 2 mg PO Q4H PRN loose stool 05/30/23 Unknown History (Anti-Diarrheal (loperamide)) acetaminophen 325 mg tablet 650 mg PO .q12hrs PAIN AND FEVER 10/07/23 06/01/24 History ferrous sulfate 325 mg (65 mg 325 mg PO DAILY 10/07/23 06/01/24 History iron) tablet apixaban 5 mg tablet (Eliquis) 5 mg PO BID #60 tabs 05/30/24 Rx paroxetine HCl 30 mg tablet 30 mg PO QDAY 04/07/24 History ipratropium 0.5 mg-albuterol 3 mg 3 ml inhalation Q4H PRN shortness 02/02/25 Unknown History (2.5 mg base)/3 mL nebulization of breath soln metoprolol succinate 25 mg capsule 25 mg PO DAILY 01/13 09/08 Unknown History sprinkle, ext. release 24 hr (Kapspargo Sprinkle) Allergy/AdvReac Type Severity Reaction Status Date / Time propofol AdvReac Other Verified 02/02/25 19:42 Family History Mother Heart disease Diabetes Hypertension Father Heart disease Surgical History History of AAA (abdominal aortic aneurysm) repair History of foot surgery Hx of abdominal surgery H/O aortic valve repair History of thoracic aortic aneurysm repair Social History housing: [facility] current occupational status: retired Smoking Status: Never smoker alcohol intake: never substance use type: does not use Review of Systems (Anesthesia) ROS Narrative System reviewed and no additional complaints, except as documented. 02/05/25 1316 <Electronically signed by Vega sales MD> Date _ [facility] Hahn [facility] Signature: Date CC: ~ Signed [facility] Work Phone: [phone]) 105-765707-25-2025 Procedure [facility] 02-05-2025 Progress note Author Hugo Cervantes [facility] Note Date/Time February 05, 2025 8:40 am [facility] Medical Records Department [address] [place] [id number] Progress Note - Hospitalist 02/05/25 0838 MR#: [id number] Acct: [id number] Name: RICHARD ROY Rep #:[id number] : 1945 79 From: Hugo hollis MD PCP: Kuldip Cosby ASSESSMENT SPECIALIST-C Status:ADM IN Location: [facility] [id number] Subjective Subjective No issues overnight. Hemoglobin and white blood cell count are stable blood sugar is under control. Still awaiting read by radiology on his lower extremityMRI however podiatry would like to proceed with the fifth ray resection today Objective Data Objective Data Vital Signs: Vital Signs Temp Pulse Resp BP Pulse Ox O2 Del Method O2 Flow Rate 97 F L 70 18 131/54 H 96 Nasal Cannula 3.5 02/05/25 03:57 02/05/25 08:06 02/05/25 03:57 02/05/25 03:57 02/05/25 03:57 02/05/25 08:06 02/05/25 08:06 Oxygen Flow Rate (L/min) 3.5 Oxygen Delivery Method Nasal Cannula Weight: 260 lb 2.327 oz Body Mass Index (BMI) 35.2 Intake & Output: Intake and Output for Last 24 Hours 02/04/25 02/05/25 02/06/25 03:59 03:59 03:59 Intake Total 2570 / 2570 2395.00 / 2395.00 Output Total 750 / 750 850 / 850 200 / 200 Balance 1820 / 1820 1545.00 / 1545.00 -200 / -200 Lab / Micro Data 02/05/25 06:41 02/04/25 05:53 Labs: Laboratory Results - last 24 hr 02/04/25 09:00: Vancomycin Trough 21.4 H 02/04/25 11:25: POC Glucose 171 H 02/04/25 17:26: POC Glucose 143 H 02/04/25 21:07: Random Vancomycin 17.8 H 02/04/25 22:26: POC Glucose 176 H 02/05/25 05:50: POC Glucose 167 H 02/05/25 06:41: WBC 10.7, RBC 3.52 L, Hgb 9.7 L, Hct 30.2 L, MCV 85.8, MCH 27.6,MCHC 32.1, RDW Std Deviation 43.1, RDW Coeff of Nathaniel 13.7, Plt Count 232, MPV 9.2, Immature Gran % (Auto) 0.800, Neut % (Auto) 76.4 H, Lymph % (Auto) 9.4 L, Lea % (Auto) 8.0, Eos % (Auto) 5.2 H, Baso % (Auto) 0.2, Absolute Neuts (auto) 8.2 H, Absolute Lymphs (auto) 1.00, Nucleated RBC % 0 Micro: Microbiology 02/05/25 00:05 Nasal Secretion MRSA (PCR) - Final 02/02/25 21:25 Urine, Catheterized Urine Culture - Final Culture exhibits no growth. 02/02/25 20:42 Blood Culture (Wb) - Right Wrist Blood Culture - Preliminary No growth in 48 hours. 02/02/25 19:56 Blood Culture (Wb) - Left Hand Blood Culture - Preliminary No growth in 48 hours. 02/03/25 18:00 Wound - Left Foot Gram Stain - Final 02/03/25 01:36 Mucosa - Nasopharyngeal Respiratory Panel (PCR) - Final 02/02/25 21:25 Urine, Clean Catch Legionella Antigen - Final 02/02/25 21:25 Urine, Clean Catch Streptococcus pneumoniae Antigen (M - Final Physical Exam Narrative General: Drowsy, Oriented x1-2, Cooperative, No apparent distress HEENT: Atraumatic, PERRLA, EOMI, Normocephalic Oral: Moist Mucosa Neck: Supple, No JVD Lungs: Diminished, Normal air movement, No rhonchi, No wheeze, No rales Cardiovascular: Regular rate, Regular Rhythm, Normal S1, Normal S2, No murmurs Abdomen: Soft, Non Tender, Non-Distended, No Hepato-splenomegaly Extremities: No edema, Capillary Refill Less than 3 Seconds Skin: Left lateral foot redness, dressing intact Musculoskeletal: No Tenderness to Palpation of Joints or Extremities Neurological: No focal neurological deficits, moves all extremities Psych/Mental Status: Flat Assessment & Plan Assessment/Plan (1) Pneumonia: PLAN: Plan 1. Sepsis secondary to left sided pneumonia as well as diabetic foot ulcer on the left ? Continue with broad-spectrum antibiotics ? Appreciate podiatry's assistance plan for surgical intervention today. ? Will wean oxygen as able ? Cultures are pending ? MRI is pending read ? JOSTIN on the right is 0.88 with a left JOSTIN of 1.05, podiatry is consulted vascular surgery 2. Paroxysmal A-fib/history of AAA status post repair 2006/essential HTN/HLD/history of sick sinus syndrome status post pacemaker placement ? Continue with his home blood pressure medications ? Blood pressures appear stable ? Continue with cholesterol medications ? Will hold his home Eliquis for the possibility of surgery ? Echo on 02/12/2023 with an EF of 55 to 60% with mild MV insufficiency, he does have a history of aortic valve replacement 3. DM2 ? Hold his home oral medications ? Continue with insulin ? Accu-Cheks ACHS ? Continue with sliding scale insulin ? Will monitor and make adjustments as necessary 4. GERD with a history of GI bleed ? He had been transitioned from Coumadin to Eliquis ? Will hold Eliquis in preparation for possible surgery ? Continue with PPI and Carafate 5. Dementia/anxiety/depression ? Stable, his dementia may be a little bit worse secondary to the infection ? Continue with his home medications 6. BPH with obstruction ? Continue with his Flomax ? Stable 7. Iron deficiency anemia ? Stable ? Continue to monitor ? Continue with iron supplementation DVT: Lovenox Charges/Coding Visit Charges Inpatient E&M: 31428 Subs Hosp L2 02/05/25 0840 <Electronically signed by Hugo Cervantes MD> Cosigner Signature (if applicable): CC: ~ Signed [facility] Work Phone: [phone]) 795-170107-25-2025 Consult note Author Deangelo Quintero [facility] Note Date/Time February 04, 2025 10:[address] [facility] Medical Records Department [address] [place] [address] Pharmacokinetic/Renal -Consult 02/04/252206 MR#: [id number] Acct: [id number] Name: RICHARD ORY Rep #:[id number] : 1945 79 From: Deangelo Calvillo od PCP: Kuldip Cosby ASSESSMENT SPECIALIST-C Status:ADM IN Y Location: [place] [address] Consult Antibiotic Management Pharmacy has been consulted to manage selected antibiotic: Vancomycin Type of Intervention Type of Consult: Follow-up Labs Labs: Sodium 142 mmol/L (133-145) 02/04/25 05:53 Potassium 3.9 mmol/L (3.3-5.1) 02/04/25 05:53 Chloride 110 mmol/L (98-108) H 02/04/25 05:53 Carbon Dioxide 23.0 mmol/L (21.0-32.0) 02/04/25 05:53 Anion Gap 9 (5-15) 02/04/25 05:53 BUN 27 mg/dL (4-19) H 02/04/25 05:53 Creatinine 1.49 mg/dL (0.70-1.20) H 02/04/25 05:53 Est GFR (MDRD) Non-Af 48 (>60) L 02/04/25 05:53 BUN/Creatinine Ratio 17.8 RATIO (10-20) 02/04/25 05:53 Glucose 170 mg/dL (70-99) H 02/04/25 05:53 Vancomycin Trough 21.4 ug/mL (5.0-15.0) H 02/04/25 09:00 Random Vancomycin 17.8 ug/mL (0.0-15.0) H 02/04/25 21:07 Microbiology Microbiology: Microbiology 02/03/25 18:00 Wound - Left Foot Gram Stain - Final 02/03/25 01:36 Mucosa - Nasopharyngeal Respiratory Panel (PCR) - Final 02/02/25 21:25 Urine, Clean Catch Legionella Antigen - Final 02/02/25 21:25 Urine, Clean Catch Streptococcus pneumoniae Antigen (M - Final Goal Trough Goal Trough: 15-20 mcg/mL Pharmacy Plan for Drug Dosing Pharmacy Plan for Drug Dosing: Pharmacy Service will continue to monitor and adjust dosing as required. RANDOPM LEVEL 17.8 @ 24 HOURS. START 1250MG Q12H AND DRAW TROUGH PRIOR TO 4TH DOSE Follow-Up Labs Follow-Up Labs: Trough: Vancomycin Date/Time Labs Ordered Labs to be done on [date and time ordered]: 02/06 @ 0930 02/04/252206 <Electronically signed by Deangelo north> Date _ Deangelo Hsuignjanessa Signature (if applicable): Date CC: ~ Signed [facility] Work Phone: [phone] 293-145907-24-2025 Consult note Author Meghana Cole [facility] Note Date/Time February 04, 2025 7:36 pm [facility] Medical Records Department [address] [place] [address] Consultation - Surgical 02/04/25729 MR#: [id number] Acct: [id number] Name: RICHARD ROY Rep #:[id number] : 1945 79 From: Meghana LOZA PCP: Kuldip Cosby ASSESSMENT SPECIALISTJay Jay Status:ADM IN Location: [facility] [id number]- [id number] Assessment & Plan Assessment/Plan (1) Type 2 diabetes mellitus with foot ulcer: (2) PAD (peripheral artery disease): PLAN: Plan Arterial study suggested some degree of PAD though JOSTIN and waveforms were somewhat conflicting. Will plan for CTA to further evaluate tomorrow as long as kidney function is stable. OK for podiatry intervention as needed for infection control. Anticipate angiogram with possible intervention next week (could be done on an outpatient basis), but will await CTA results to confirm. Findings and plan were discussed with both patient and his , both are content with current plan. Both were agreeable to angiogram if needed. HPI Consult Data Date of Consult: 02/04/25 HPI Narrative HPI Narrative: RICHARD ROY, is a 79 M who presented to the [facility] ER on 02/02/25 with new cough, fever, lethargy/fatigue, and altered mental status and was admitted for management of sepsis secondary to pneumonia and L foot diabetic ulceration and started on IV antibiotics. He has had this L foot ulceration for at least 4 weeks and it has been managed by SNF where he resides. He is diabetic with peripheral neuropathy. He was evaluated by podiatry Dr. Mejia; wound probes to bone and there is concern forinfection/osteomyelitis. MRI is pending but plan is for possible operative debridement/amputation to manage. He had arterial study 02/03/25 which demonstrated L JOSTIN PT 1.05 with monophasic waveforms and L JOSTIN DP 0.79 and TBI 0.26. He has history of dementia; history was supplemented by his as well. No known history of prior vascular intervention. 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 Obregon, healed without issue from that. Heis on Eliquis for Afib. 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) Home Medications ?Medication ?Instructions ?Recorded ?Last Taken ?Type losartan 50 mg tablet 50 mg PO DAILY blood pressur e 03/24/18 06/01/24 History atorvastatin 40 mg tablet 40 mg PO QHS cholesterol 03/0105/31/24 History tamsulosin 0.4 mg capsule 0.4 mg PO QHS PROSTATE 03/0205/31/24 History cholecalciferol (vitamin D3) 1,250 1,250 mcg PO MO SUP PLEMENT 01/21/23 06/01/24 History mcg (50,000 unit) tablet metformin 1,000 mg tablet 1,000 mg PO BID DM 01/21/23 06/01/24 History insulin glargine 100 unit/mL (3 15 unit (0.15 mL) subc ut DAILY 01/26/23 06/01/24 Rx mL) subcutaneous pen (Lantus diabetes #15 mL Solostar U-100 Insulin) pantoprazole 40 mg tablet,delayed 40 mg PO BID #60 tab s 02/05/23 06/01/24 Rx release sucralfate 1 gram tablet 1 g PO 0700,1100,1600 #90 ta bs 02/05/23 06/01/24 Rx melatonin 3 mg tablet 3 mg PO QHS Insomnia 3 02/10/23 History memantine 10 mg tablet 10 mg PO BID #0 tabs 3 06/01/24 Rx bisacodyl 10 mg rectal suppository 10 mg WV DAILY PRN constipation 05/30/23 Unknown History loperamide 2 mg capsule 2 mg PO Q4H PRN loose stool 05/30/23 Unknown History (Anti-Diarrheal (loperamide)) acetaminophen 325 mg tablet 650 mg PO .q12hrs PAIN AND FEVER 10/07/23 06/01/24 History ferrous sulfate 325 mg (65 mg 325 mg PO DAILY 10/07/23 06/01/24 History iron) tablet apixaban 5 mg tablet (Eliquis) 5 mg PO BID #60 tabs 05/30/24 Rx paroxetine HCl 30 mg tablet 30 mg PO QDAY 04/07/24 History ipratropium 0.5 mg-albuterol 3 mg 3 ml inhalation Q4H PRN shortness 02/02/25 Unknown History (2.5 mg base)/3 mL nebulization of breath soln metoprolol succinate 25 mg capsule 25 mg PO DAILY 01/13 09/08 Unknown History sprinkle, ext. release 24 hr (Kapspargo Sprinkle) Allergy/AdvReac Type Severity Reaction Status Date / Time propofol AdvReac Other Verified 02/02/25 19:42 Family History Mother Heart disease Diabetes Hypertension Father Heart disease Surgical History History of AAA (abdominal aortic aneurysm) repair History of foot surgery Hx of abdominal surgery H/O aortic valve repair History of thoracic aortic aneurysm repair Social History housing: [facility] current occupational status: retired Smoking Status: Never smoker alcohol intake: never substance use type: does not use Physical Exam Const alert, oriented x3 and no apparent distress General Appearance: cooperative and comfortable HEENT normocephalic, head/scalp atraumatic, hearing grossly normal bilaterally, external ears normal and external nose normal Eyes General Eye: normal appearance of both eyes Neck General: normal visual inspection and trachea midline Resp normal respiratory effort, no retractions and no use of accessory muscles Effort and Inspection: able to speak in complete sentences; Negative for labored, grunting, stridor or audible wheezes Extremity Extremity Narrative: L DP signal biphasic, L PT monophasic; L foot generally pink and warm. L lateralfoot wound with overlying eschar, erythema within Skin Trauma: no lacerations or abrasions Neuro moves all extremities Speech: speech normal Psych mental status grossly normal Attitude: calm Speech: normal speech Lab / Micro Data 02/04/25 05:53 02/04/25 05:53 Labs: Laboratory Results - last 24 hr 02/03/25 06:31: ESR 14, Sodium 139, Potassium 4.2, Chloride 107, Carbon Dioxide 18.1 L, Anion Gap 14, BUN 19, Creatinine 1.10, Estim Creat Clear Calc 74.74, EstGFR (MDRD) Non-Af 69, BUN/Creatinine Ratio 16.9, Glucose 154 H, Hemoglobin A1c 6.7 H, Calcium 8.3, Magnesium 1.7, Total Bilirubin 0.61, AST 15, ALT 9, AlkalinePhosphatase 106, C-React Prot Ext Range 138.00 H, Total Protein 5.6 L, Albumin 2.9 L, Globulin 2.7, Albumin/Globulin Ratio 1.1 02/03/25 11:15: POC Glucose 140 H 02/03/25 16:26: POC Glucose 154 H 02/03/25 18:00: S.aureus Protein A PCR POSITIVE H, MRSA (PCR) POSITIVE H 02/03/25 21:03: POC Glucose 170 H 02/04/25 05:53: WBC 11.4 H, RBC 3.63 L, Hgb 10.1 L, Hct 31.0 L, MCV 85.4, MCH 27.8, MCHC 32.6, RDW Std Deviation 43.2, RDW Coeff of Nathaniel 13.7, Plt Count 193, MPV 9.3, Immature Gran % (Auto) 0.900, Neut % (Auto) 80.0 H, Lymph % (Auto) 5.3 L, Lea % (Auto) 9.4, Eos % (Auto) 4.1, Baso % (Auto) 0.3, Absolute Neuts (auto)9.2 H, Absolute Lymphs (auto) 0.61 L, Nucleated RBC % 0, Sodium 142, Potassium 3.9, Chloride 110 H, Carbon Dioxide 23.0, Anion Gap 9, BUN 27 H, Creatinine 1.49H, Estim Creat Clear Calc 55.04, Est GFR (MDRD) Non-Af 48 L, BUN/Creatinine Ratio 17.8, Glucose 170 H, Calcium 8.3 02/04/25 06:19: POC Glucose 169 H Micro: Microbiology 02/03/25 01:36 Mucosa - Nasopharyngeal Respiratory Panel (PCR) - Final Imaging Radiology Impression Extremity Arterial Study 02/03/25 10:01 Interpretation Summary Right JOSTIN 0.88, moderate arterial insufficiency. Doppler/PVR waveforms of the right ankle normal at rest. Left JOTSIN 1.05, normal though may be artificially elevated. Doppler/PVR waveformsof the left leg mildly diminished infrapopliteal. TBI diminished. Ordering Physician: Kee Mejia Referring Physician: Kuldip Cosby Performed By: Giancarlo Loaiza RVT Charges/Coding Visit Charges Inpatient E&M: 72501 Init Hosp L2 02/04/251905 <Electronically signed by Meghana LOZA> Cosigner Signature (if applicable): 02/04/251935 <Electronically signed by Aneesh Ac MD> CC: Kuldip Cosby~ Signed [facility] Work Phone: [phone] 796-916307-24-2025 Progress note Author Kee Mejia [facility] Note Date/Time February 04, 2025 3:41 pm [facility] Medical Records Department [address] [place] [address] Progress Note 02/04/25 1537 MR#: [id number] Acct: [id number] Name: RICHARD ROY Rep #:[id number] : 1945 79 From: Kee Mejia DPNelson PCP: Kuldip Cosby Status:ADM IN Location: [place] [id number]- Subjective Subjective Patient was seen today for follow up on left foot. He is sitting up in chair watching TV, no new complaints. No complaints of f/c/n/v. Objective Data Objective Data Vital Signs: Vital Signs Temp Pulse Resp BP Pulse Ox O2 Del Method O2 Flow Rate 97.8 F 60 17 144/58 H 99 Nasal Cannula 2 02/04/25 09:42 02/04/25 10:01 02/04/25 09:42 02/04/25 09:42 02/04/25 09:42 02/04/25 09:46 02/04/25 13:00 Oxygen Flow Rate (L/min) 2 Oxygen Delivery Method Nasal Cannula Weight: 117.9 kg Body Mass Index (BMI) 35.2 Intake & Output: Intake and Output for Last 24 Hours 02/02/25 02/03/25 02/04/25 23:59 23:59 23:59 Intake Total 2099 4060 / 4060 1125.83 / 1125.83 Output Total 750 / 750 700 / 700 Balance 2099 3310 / 3310 425.83 / 425.83 Lab / Micro Data 02/04/25 05:53 02/04/25 05:53 Labs: Laboratory Results - last 24 hr 02/03/25 16:26: POC Glucose 154 H 02/03/25 18:00: S.aureus Protein A PCR POSITIVE H, MRSA (PCR) POSITIVE H 02/03/25 21:03: POC Glucose 170 H 02/04/25 05:53: WBC 11.4 H, RBC 3.63 L, Hgb 10.1 L, Hct 31.0 L, MCV 85.4, MCH 27.8, MCHC 32.6, RDW Std Deviation 43.2, RDW Coeff of Nathaniel 13.7, Plt Count 193, MPV 9.3, Immature Gran % (Auto) 0.900, Neut % (Auto) 80.0 H, Lymph % (Auto) 5.3 L, Lea % (Auto) 9.4, Eos % (Auto) 4.1, Baso % (Auto) 0.3, Absolute Neuts (auto)9.2 H, Absolute Lymphs (auto) 0.61 L, Nucleated RBC % 0, Sodium 142, Potassium 3.9, Chloride 110 H, Carbon Dioxide 23.0, Anion Gap 9, BUN 27 H, Creatinine 1.49H, Estim Creat Clear Calc 55.04, Est GFR (MDRD) Non-Af 48 L, BUN/Creatinine Ratio 17.8, Glucose 170 H, Calcium 8.3 02/04/25 06:19: POC Glucose 169 H 02/04/25 09:00: Vancomycin Trough 21.4 H 02/04/25 11:25: POC Glucose 171 H Micro: Microbiology 02/03/25 01:36 Mucosa - Nasopharyngeal Respiratory Panel (PCR) - Final 02/02/25 21:25 Urine, Clean Catch Legionella Antigen - Final 02/02/25 21:25 Urine, Clean Catch Streptococcus pneumoniae Antigen (M - Final Radiography Diagnostic Testing: Radiology Impression Extremity Arterial Study 02/03/25 10:01 Interpretation Summary Right JOSTIN 0.88, moderate arterial insufficiency. Doppler/PVR waveforms of the right ankle normal at rest. Left JOSTIN 1.05, normal though may be artificially elevated. Doppler/PVR waveformsof the left leg mildly diminished infrapopliteal. TBI diminished. Ordering Physician: Kee Mejia Referring Physician: Kuldip Cosby Performed By: Giancarlo Loaiza RVT Physical Exam Const alert and no apparent distress Constitutional Narrative: Dressing left foot is clean, dry and intact. Reviewed today's left foot wound photos - eschar noted to 5th MTPJ, there is continued erythema and edema which appears stable at this time - no acute findings. Assessment & Plan Assessment/Plan (1) Cellulitis of left lower limb: (2) Acute osteomyelitis of metatarsal bone of left foot: (3) Diabetes mellitus with diabetic polyneuropathy: (4) Type 2 diabetes mellitus with foot ulcer: PLAN: Plan Reviewed diagnostic data. Clinically there is high concern and probability of osteomyelitis to the left 5th metatarsal as the ulcer probes right to the bone and there is cellulitis and nonviable tissue to the site. Further evaluation is medically necessary - MRI was ordered for further evaluation - discussed with MRI dept today and patient can get MRI this afternoon. LEAS have been obtained and have been reviewed- PAD noted and vascular surgery has been consulted. Patient is on antibiotic therapy. Discussed with patient possible further debridement and amputation of the 5th ray on his left foot - will await the MRI findings first and vascular surgery input. No weightbearing left foot. Keep offloaded at all times. Podiatry will continue to follow. Also discussed wound status with wound nurse. 02/04/25 6699 <Electronically signed by Kee Mejia DPM> Kee Mejia DPM Cosigner Signature (if applicable): CC: ~ Signed [facility] Work Phone: [phone] Consult note Author Crys Carvajal [facility] Note Date/Time February 04, 2025 10:[address] [facility] Medical Records Department [address] [place] [address] Pharmacokinetic/Renal -Consult 02/04/25 1052 MR#: [id number] Acct: [id number] Name: RICHARD ROY Rep #:[id number] : 1945 79 From: Crys Carvajal PCP: Kuldip Cosby ASSESSMENT SPECIALIST-C Status:ADM IN Y Location: [place] [address] Consult Antibiotic Management Pharmacy has been consulted to manage selected antibiotic: Vancomycin Type of Intervention Type of Consult: Follow-up Labs Labs: Sodium 142 mmol/L (133-145) 02/04/25 05:53 Potassium 3.9 mmol/L (3.3-5.1) 02/04/25 05:53 Chloride 110 mmol/L (98-108) H 02/04/25 05:53 Carbon Dioxide 23.0 mmol/L (21.0-32.0) 02/04/25 05:53 Anion Gap 9 (5-15) 02/04/25 05:53 BUN 27 mg/dL (4-19) H 02/04/25 05:53 Creatinine 1.49 mg/dL (0.70-1.20) H 02/04/25 05:53 Est GFR (MDRD) Non-Af 48 (>60) L 02/04/25 05:53 BUN/Creatinine Ratio 17.8 RATIO (10-20) 02/04/25 05:53 Glucose 170 mg/dL (70-99) H 02/04/25 05:53 Vancomycin Trough 21.4 ug/mL (5.0-15.0) H 02/04/25 09:00 Microbiology Microbiology: Microbiology 02/03/25 01:36 Mucosa - Nasopharyngeal Respiratory Panel (PCR) - Final 02/02/25 21:25 Urine, Clean Catch Legionella Antigen - Final 02/02/25 21:25 Urine, Clean Catch Streptococcus pneumoniae Antigen (M - Final Goal Trough Goal Trough: 15-20 mcg/mL Pharmacy Plan for Drug Dosing Pharmacy Plan for Drug Dosing: VANCOMYCIN LEVEL RECEIVED Current Vancomycin Dose: 1750mg IV Q12hr Number of Doses Received: 3 Vancomycin Level: 21.4 Hours Since Last Dose: 12hr Renal Function: SCr 1.49/ CrCl 55 mL/min Renal Function Trend: SCr has increased by ~0.5 since starting vancomycin Lab/Micro: cultures pending Vancomycin Plan/Comments: patient had a trough drawn which resulted in a value of 21.4 (goal 15-20). Since trough is >20, will stop vancomycin doses and recheck a trough in 12 hours. Once trough is below 20, we will resume vancomycindosing. Pending Level: 02/04/25 @2100 Pharmacy Service will continue to monitor and adjust dosing as required. 02/04/25 1054 <Electronically signed by Crys Carvajal > Date _ Crys Carvajal Cosigner Signature (if applicable): Date CC: ~ Signed [facility] Work Phone: [phone] Progress note Author Hugo Cervantes [facility] Note Date/Time February 04, 2025 9:05 am [facility] Medical Records Department [address] [place] [address] Progress Note - Hospitalist 02/04/25901 MR#: [id number] Acct: [id number] Name: RICHARD ROY Rep #:[id number] : 1945 79 From: Hugo hollis MD PCP: Kuldip Cosby ASSESSMENT SPECIALISTLisaC Status:ADM IN Location: [place] [address] Subjective Subjective No issues overnight, awaiting MRI of his left foot Objective Data Objective Data Vital Signs: Vital Signs Temp Pulse Resp BP Pulse Ox O2 Del Method O2 Flow Rate 98.6 F 60 20 H 141/60 H 94 Room Air 2 02/04/25 02:36 02/04/25 04:25 02/04/25 02:36 02/04/25 02:36 02/04/25 07:34 02/04/25 07:34 02/03/25 23:00 Oxygen Flow Rate (L/min) 2 Oxygen Delivery Method Room Air Weight: 259 lb 14.8 oz Body Mass Index (BMI) 35.2 Intake & Output: Intake and Output for Last 24 Hours 02/03/25 02/04/25 02/05/25 03:59 03:59 03:59 Intake Total 3640 / 3640 2570 / 2570 50 / 50 Output Total 750 / 750 300 / 300 Balance 3640 / 3640 1820 / 1820 -250 / -250 Lab / Micro Data 02/04/25 05:53 02/04/25 05:53 Labs: Laboratory Results - last 24 hr 02/03/25 06:31: ESR 14 02/03/25 11:15: POC Glucose 140 H 02/03/25 16:26: POC Glucose 154 H 02/03/25 18:00: S.aureus Protein A PCR POSITIVE H, MRSA (PCR) POSITIVE H 02/03/25 21:03: POC Glucose 170 H 02/04/25 05:53: WBC 11.4 H, RBC 3.63 L, Hgb 10.1 L, Hct 31.0 L, MCV 85.4, MCH 27.8, MCHC 32.6, RDW Std Deviation 43.2, RDW Coeff of Nathaniel 13.7, Plt Count 193, MPV 9.3, Immature Gran % (Auto) 0.900, Neut % (Auto) 80.0 H, Lymph % (Auto) 5.3 L, Lea % (Auto) 9.4, Eos % (Auto) 4.1, Baso % (Auto) 0.3, Absolute Neuts (auto)9.2 H, Absolute Lymphs (auto) 0.61 L, Nucleated RBC % 0, Sodium 142, Potassium 3.9, Chloride 110 H, Carbon Dioxide 23.0, Anion Gap 9, BUN 27 H, Creatinine 1.49H, Estim Creat Clear Calc 55.04, Est GFR (MDRD) Non-Af 48 L, BUN/Creatinine Ratio 17.8, Glucose 170 H, Calcium 8.3 02/04/25 06:19: POC Glucose 169 H Micro: Microbiology 02/03/25 01:36 Mucosa - Nasopharyngeal Respiratory Panel (PCR) - Final 02/02/25 21:25 Urine, Clean Catch Legionella Antigen - Final 02/02/25 21:25 Urine, Clean Catch Streptococcus pneumoniae Antigen (M - Final Radiography Diagnostic Testing: Radiology Impression Extremity Arterial Study 02/03/25 10:01 Interpretation Summary Right JOSTIN 0.88, moderate arterial insufficiency. Doppler/PVR waveforms of the right ankle normal at rest. Left JOSTIN 1.05, normal though may be artificially elevated. Doppler/PVR waveformsof the left leg mildly diminished infrapopliteal. TBI diminished. Ordering Physician: Kee Mejia Referring Physician: Kuldip Cosby Performed By: Giancarlo Loaiza RVT Physical Exam Narrative General: Alert but drowsy, Oriented x1-2, Cooperative, No apparent distress HEENT: Atraumatic, PERRLA, EOMI, Normocephalic Oral: Moist Mucosa Neck: Supple, No JVD Lungs: Diminished, Normal air movement, No rhonchi, No wheeze, No rales Cardiovascular: Regular rate, Regular Rhythm, Normal S1, Normal S2, No murmurs Abdomen: Soft, Non Tender, Non-Distended, No Hepato-splenomegaly Extremities: No edema, Capillary Refill Less than 3 Seconds Skin: Right lateral foot redness, dressing intact Musculoskeletal: No Tenderness to Palpation of Joints or Extremities Neurological: No focal neurological deficits, Motor Exam 5/5 strength throughout, Sensory exam intact to light touch and pain Psych/Mental Status: Flat Assessment & Plan Assessment/Plan (1) Pneumonia: PLAN: Plan 1. Sepsis secondary to left sided pneumonia as well as diabetic foot ulcer on the left ? Continue with broad-spectrum antibiotics ? Appreciate podiatry's assistance ? Will wean oxygen as able ? Cultures are pending ? MRI is pending read ? JOSTIN on the right is 0.88 with a left JOSTIN of 1.05, podiatry is consulted vascular surgery 2. Paroxysmal A-fib/history of AAA status post repair 2006/essential HTN/HLD/history of sick sinus syndrome status post pacemaker placement ? Continue with his home blood pressure medications ? Blood pressures appear stable ? Continue with cholesterol medications ? Will hold his home Eliquis for the possibility of surgery ? Echo on 02/12/2023 with an EF of 55 to 60% with mild MV insufficiency, he does have a history of aortic valve replacement 3. DM2 ? Hold his home oral medications ? Continue with insulin ? Accu-Cheks ACHS ? Continue with sliding scale insulin ? Will monitor and make adjustments as necessary 4. GERD with a history of GI bleed ? He had been transitioned from Coumadin to Eliquis ? Will hold Eliquis in preparation for possible surgery ? Continue with PPI and Carafate 5. Dementia/anxiety/depression ? Stable, his dementia may be a little bit worse secondary to the infection ? Continue with his home medications 6. BPH with obstruction ? Continue with his Flomax ? Stable 7. Iron deficiency anemia ? Stable ? Continue to monitor ? Continue with iron supplementation DVT: Lovenox Charges/Coding Visit Charges Inpatient E&M: 34534 Subs Hosp L2 02/04/25 0905 <Electronically signed by Hugo Cervantes MD> Cosigner Signature (if applicable): CC: ~ Signed [facility] Work Phone: [phone] 307-946607-24-2025 Consult note Author Kee Mejia [facility] Note Date/Time February 03, 2025 11:4 9pm [facility] Medical Records Department [address] [place] [address] Consultation 02/03/25 1815 MR#: [id number] Acct: [id number] Name: RICHARD ROY Rep #:[id number] : 1945 79 From: Kee Mejia DPM PCP: Kuldip Cosby Status:ADM IN Location: [facility] [id number] Assessment & Plan Assessment/Plan (1) Cellulitis of left lower limb: (2) Acute osteomyelitis of metatarsal bone of left foot: (3) Diabetes mellitus with diabetic polyneuropathy: (4) Type 2 diabetes mellitus with foot ulcer: PLAN: Plan Evaluation performed. Reviewed diagnostic data. Clinically there is high concernand probability of osteomyelitis to the left 5th metatarsal as the ulcer probes right to the bone and there is significant cellulitis and nonviable tissue to the site. Further evaluation is medically necessary - MRI was ordered for further evaluation, however it is unclear if he will be able to get the MRI due to his pacemaker - I discussed with auto brake technician and they are going to check on this. The ulceration was debrided in selective fashion (nonexcisional) to remove nonviable tissue - this was completed down to and including fascia layer, the area debrided measured 1.5cm x 2cm. No anesthesia was needed due to patient's peripheral neuropathy. There was some minor bleeding, hemostasis achieved with gauze and pressure. A deep swab culture of the wound was obtained and sent to microbiology. Betadine and gauze dressing applied. Change daily. LEAS have been ordered and have been reviewed- PAD noted and vascular surgery has been consulted. Patient is on antibiotic therapy - and Infectious Disease is on consult. Discussed with patient possible further debridement and amputation of the 5th ray on his left foot - will await the MRI findings first (if he is able to obtain) - surgery is not urgent at this time - there is no gas, and likely has been present for some time. No weightbearing left foot. Keep offloaded at all times. Podiatry will continue to follow, thank you for consultation. HPI Consult Data Date of Consult: 02/03/25 HPI Narrative Reason for Consultation: Left foot ulcer and infection HPI Narrative: RICHARD ROY, is a 79 M who presents from nursing facility with multiple medical problems. Podiatry was consulted by hospitalist for wound and infection left foot. Patient's was present in room and much of the history was obtained from her as well as from chart review as the patient appears to be poorhistorian. Patient's relates she was called by the [facility] in about 3-4 weeks ago and states she was informed he had a wound on hisleft foot and it was being cared for by the nursing facility. She relates the wound doctor saw the wound just this week and seemed to have no concerns. Patient does have history of right 1st toe infection and had previous amputationby Dr. Obregon. Patient does not continue to follow with podiatry for regular foot care. Patient has no pain to his feet, he has peripheral neuropathy. He hasdiabetes, history of heart disease and has a pacemaker. 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) Home Medications ?Medication ?Instructions ?Recorded ?Last Taken ?Type losartan 50 mg tablet 50 mg PO DAILY blood pressur e 03/24/18 06/01/24 History atorvastatin 40 mg tablet 40 mg PO QHS cholesterol 03/0105/31/24 History tamsulosin 0.4 mg capsule 0.4 mg PO QHS PROSTATE 03/0205/31/24 History cholecalciferol (vitamin D3) 1,250 1,250 mcg PO MO SUP PLEMENT 01/21/23 06/01/24 History mcg (50,000 unit) tablet metformin 1,000 mg tablet 1,000 mg PO BID DM 01/21/23 06/01/24 History insulin glargine 100 unit/mL (3 15 unit (0.15 mL) subc ut DAILY 01/26/23 06/01/24 Rx mL) subcutaneous pen (Lantus diabetes #15 mL Solostar U-100 Insulin) pantoprazole 40 mg tablet,delayed 40 mg PO BID #60 tab s 02/05/23 06/01/24 Rx release sucralfate 1 gram tablet 1 g PO 0700,1100,1600 #90 ta bs 02/05/23 06/01/24 Rx melatonin 3 mg tablet 3 mg PO QHS Insomnia 3 02/10/23 History memantine 10 mg tablet 10 mg PO BID #0 tabs 3 06/01/24 Rx bisacodyl 10 mg rectal suppository 10 mg WV DAILY PRN constipation 05/30/23 Unknown History loperamide 2 mg capsule 2 mg PO Q4H PRN loose stool 05/30/23 Unknown History (Anti-Diarrheal (loperamide)) acetaminophen 325 mg tablet 650 mg PO .q12hrs PAIN AND FEVER 10/07/23 06/01/24 History ferrous sulfate 325 mg (65 mg 325 mg PO DAILY 10/07/23 06/01/24 History iron) tablet apixaban 5 mg tablet (Eliquis) 5 mg PO BID #60 tabs 05/30/24 Rx paroxetine HCl 30 mg tablet 30 mg PO QDAY 04/07/24 History ipratropium 0.5 mg-albuterol 3 mg 3 ml inhalation Q4H PRN shortness 02/02/25 Unknown History (2.5 mg base)/3 mL nebulization of breath soln metoprolol succinate 25 mg capsule 25 mg PO DAILY 01/13 09/08 Unknown History sprinkle, ext. release 24 hr (Kapspargo Sprinkle) Allergy/AdvReac Type Severity Reaction Status Date / Time propofol AdvReac Other Verified 02/02/25 19:42 Family History Mother Heart disease Diabetes Hypertension Father Heart disease Surgical History History of AAA (abdominal aortic aneurysm) repair History of foot surgery Hx of abdominal surgery H/O aortic valve repair History of thoracic aortic aneurysm repair Social History housing: [facility] current occupational status: retired Smoking Status: Never smoker alcohol intake: never substance use type: does not use Physical Exam Const alert and no apparent distress Constitutional Narrative: There is ulceration to the lateral left 5th metatarsal head and down to bone, there is significant nonviable and some necrotic tissue to the site, there is significant cellulitis localized to the site extending to the dorsal and lateralfoot, there is some maloder, there is no visible abscess, no crepitus. No other open wounds bilateral foot. 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 There is chronic peripheral neuropathy bilateral foot. LEAS were reviewed and noted tohave bilateral PAD - no evidence of acute ischemia bilateral foot. No pain to foot or ankle bilateral. Lab / Micro Data 02/03/25 06:31 02/03/25 06:31 Labs: Laboratory Results - last 24 hr 02/02/25 19:56: WBC 13.9 H, RBC 3.94 L, Hgb 10.9 L, Hct 33.5 L, MCV 85.0, MCH 27.7, MCHC 32.5, RDW Std Deviation 42.2, RDW Coeff of Nathaniel 13.6, Plt Count 203, MPV 9.4, Immature Gran % (Auto) 0.700, Neut % (Auto) 86.2 H, Lymph % (Auto) 3.6 L, Lea % (Auto) 8.7, Eos % (Auto) 0.6, Baso % (Auto) 0.2, Absolute Neuts (auto)12.0 H, Absolute Lymphs (auto) 0.50 L, Nucleated RBC % 0, ESR 23 H, PT 17.3 H, INR 1.4, APTT 34.0, Sodium 141, Potassium 3.8, Chloride 104, Carbon Dioxide 22.4, Anion Gap 14, BUN 18, Creatinine 1.04, Estim Creat Clear Calc 79.39, Est GFR (MDRD) Non-Af 74, BUN/Creatinine Ratio 17.0, Glucose 195 H, Lactic Acid 3.1 H*, Calcium 8.7, Magnesium 0.9 L*, Total Bilirubin 0.50, AST 15, ALT 10, Alkaline Phosphatase 115, C-React Prot Ext Range 94.50 H, Total Protein 5.8 L, Albumin 3.5, Globulin 2.3, Albumin/Globulin Ratio 1.5 02/02/25 21:25: Urine Color Yellow, Urine Clarity Clear, Urine pH 5.0, Ur Specific Wheeler 1.015, Urine Protein 30 H, Urine Glucose (UA) 250 H, Urine Ketones Negative, Urine Occult Blood 25 H, Urine Nitrite Negative, Urine Bilirubin Negative, Urine Urobilinogen Normal, Ur Leukocyte Esterase Negative, Urine RBC 5-10 SEEN, Urine WBC 5-10 SEEN, Ur Squamous Epith Cells 0-5 SEEN, Urine Bacteria 1+, Urine Mucus 0 SEEN 02/03/25 00:35: Lactic Acid 1.6 02/03/25 01:48: POC Glucose 140 H 02/03/25 06:02: POC Glucose 148 H 02/03/25 06:31: WBC 11.4 H, RBC 3.80 L, Hgb 10.5 L, Hct 32.6 L, MCV 85.8, MCH 27.6, MCHC 32.2, RDW Std Deviation 43.1, RDW Coeff of Nathaniel 13.7, Plt Count , MPV 9.5, Immature Gran % (Auto) 0.600, Neut % (Auto) 83.8 H, Lymph % (Auto) 4.0 L, Lea % (Auto) 8.4, Eos % (Auto) 2.9, Baso % (Auto) 0.3, Absolute Neuts (auto) 9.5 H, Absolute Lymphs (auto) 0.46 L, Nucleated RBC % 0, Platelet Estimate ADEQUATE, ESR 14, Sodium 139, Potassium 4.2, Chloride 107, Carbon Dioxide 18.1 L, Anion Gap 14, BUN 19, Creatinine 1.10, Estim Creat Clear Calc 74.74, Est GFR (MDRD) Non-Af 69, BUN/Creatinine Ratio 16.9, Glucose 154 H, Hemoglobin A1c 6.7 H, Calcium 8.3, Magnesium 1.7, Total Bilirubin 0.61, AST 15, ALT 9, Alkaline Phosphatase 106, C- React Prot Ext Range 138.00 H, Total Protein 5.6 L, Albumin 2.9 L, Globulin 2.7, Albumin/Globulin Ratio 1.1 02/03/25 11:15: POC Glucose 140 H 02/03/25 16:26: POC Glucose 154 H Micro: Microbiology 02/03/25 01:36 Mucosa - Nasopharyngeal Respiratory Panel (PCR) - Final 02/02/25 21:25 Urine, Clean Catch Legionella Antigen - Final 02/02/25 21:25 Urine, Clean Catch Streptococcus pneumoniae Antigen (M - Final Imaging Radiology Impression Brain CT 02/02/25 20:09 IMPRESSION: 1. No acute intracranial abnormality. 2. Mild-moderate volume loss and chronic microangiopathic changes. 3. Chronic paranasal sinus disease. Reading Location: [facility] Chest X-Ray 02/02/25 20:20 IMPRESSION: Pulmonary findings as above. Reading Location: [facility] Foot X-Ray 02/02/25 20:20 IMPRESSION: No acute osseous abnormality. Reading Location: [facility] Extremity Arterial Study 02/03/25 10:01 Interpretation Summary Right JOSTIN 0.88, moderate arterial insufficiency. Doppler/PVR waveforms of the right ankle normal at rest. Left JOSTIN 1.05, normal though may be artificially elevated. Doppler/PVR waveformsof the left leg mildly diminished infrapopliteal. TBI diminished. Ordering Physician: Kee Mejia Referring Physician: Kuldip Cosby Performed By: Giancarlo Loaiza, T 02/03/252345 <Electronically signed by Kee Mejia DPM> Cosigner Signature (if applicable): CC: Kuldip Cosby~ Signed ADDENDUM by DPNelson Mejia on 02/03/25 at 2349 Addendum Correction - Infectious Disease is not on consult but given the findings and concern for osteomyelitis it would be beneficial to consult Infectious Disease -will discuss with hospitalist who is the admitting physician/team. 02/03/252348<Electronically signed by Kee Mejia DPM> Cosigner Signature (if applicable): cc: Kuldip Cosby ~* Signed [facility] Work Phone: 1(875) 478-318207-23-2025 [facility]07-23-2025 Progress note Author Hugo Cervantes [facility] Note Date/Time February 03, 2025 11:5 6am [facility] Medical Records Department [address] [place] [address] Progress Note - Hospitalist 02/03/25 0956 MR#: [id number] Acct: [id number] Name: RICHARD ROY Rep #:[id number] : 1945 79 From: Hugo hollis MD PCP: Kuldip Cosby ASSESSMENT SPECIALIST-C Status:ADM [place] Location: [place] [address] Subjective Subjective No issues overnight, maintaining oxygen saturations on 4 L nasal cannula Objective Data Objective Data Vital Signs: Vital Signs Temp Pulse Resp BP Pulse Ox O2 Del Method O2 Flow Rate 98.0 F 81 18 126/62 H 97 Nasal Cannula 4 02/03/25 08:00 02/03/25 08:00 02/03/25 08:00 02/03/25 08:00 02/03/25 08:00 02/03/25 08:00 02/03/25 08:00 Oxygen Flow Rate (L/min) 4 Oxygen Delivery Method Nasal Cannula Weight: 261 lb 3.964 oz Body Mass Index (BMI) 35.4 Intake & Output: Intake and Output for Last 24 Hours 02/02/25 02/03/25 02/04/25 03:59 03:59 03:59 Intake Total 3640 / 3640 100 / 100 Balance 3640 / 3640 100 / 100 Lab / Micro Data 02/03/25 06:31 02/03/25 06:31 Labs: Laboratory Results - last 24 hr 02/02/25 19:56: WBC 13.9 H, RBC 3.94 L, Hgb 10.9 L, Hct 33.5 L, MCV 85.0, MCH 27.7, MCHC 32.5, RDW Std Deviation 42.2, RDW Coeff of Nathaneil 13.6, Plt Count 203, MPV 9.4, Immature Gran % (Auto) 0.700, Neut % (Auto) 86.2 H, Lymph % (Auto) 3.6 L, Lea % (Auto) 8.7, Eos % (Auto) 0.6, Baso % (Auto) 0.2, Absolute Neuts (auto)12.0 H, Absolute Lymphs (auto) 0.50 L, Nucleated RBC % 0, ESR 23 H, PT 17.3 H, INR 1.4, APTT 34.0, Sodium 141, Potassium 3.8, Chloride 104, Carbon Dioxide 22.4, Anion Gap 14, BUN 18, Creatinine 1.04, Estim Creat Clear Calc 79.39, Est GFR (MDRD) Non-Af 74, BUN/Creatinine Ratio 17.0, Glucose 195 H, Lactic Acid 3.1 H*, Calcium 8.7, Magnesium 0.9 L*, Total Bilirubin 0.50, AST 15, ALT 10, Alkaline Phosphatase 115, C-React Prot Ext Range 94.50 H, Total Protein 5.8 L, Albumin 3.5, Globulin 2.3, Albumin/Globulin Ratio 1.5 02/02/25 21:25: Urine Color Yellow, Urine Clarity Clear, Urine pH 5.0, Ur Specific Wheeler 1.015, Urine Protein 30 H, Urine Glucose (UA) 250 H, Urine Ketones Negative, Urine Occult Blood 25 H, Urine Nitrite Negative, Urine Bilirubin Negative, Urine Urobilinogen Normal, Ur Leukocyte Esterase Negative, Urine RBC 5-10 SEEN, Urine WBC 5-10 SEEN, Ur Squamous Epith Cells 0-5 SEEN, Urine Bacteria 1+, Urine Mucus 0 SEEN 02/03/25 00:35: Lactic Acid 1.6 02/03/25 01:48: POC Glucose 140 H 02/03/25 06:02: POC Glucose 148 H 02/03/25 06:31: WBC 11.4 H, RBC 3.80 L, Hgb 10.5 L, Hct 32.6 L, MCV 85.8, MCH 27.6, MCHC 32.2, RDW Std Deviation 43.1, RDW Coeff of Nathaniel 13.7, Plt Count , MPV 9.5, Immature Gran % (Auto) 0.600, Neut % (Auto) 83.8 H, Lymph % (Auto) 4.0 L, Lea % (Auto) 8.4, Eos % (Auto) 2.9, Baso % (Auto) 0.3, Absolute Neuts (auto) 9.5 H, Absolute Lymphs (auto) 0.46 L, Nucleated RBC % 0, Platelet Estimate ADEQUATE, Sodium 139, Potassium 4.2, Chloride 107, Carbon Dioxide 18.1 L, Anion Gap 14, BUN 19, Creatinine 1.10, Estim Creat Clear Calc 74.74, Est GFR (MDRD) Non-Af 69, BUN/Creatinine Ratio 16.9, Glucose 154 H, Hemoglobin A1c 6.7 H, Calcium 8.3, Magnesium 1.7, Total Bilirubin 0.61, AST 15, ALT 9, Alkaline Phosphatase 106, C- React Prot Ext Range 138.00 H, Total Protein 5.6 L, Albumin 2.9 L, Globulin 2.7, Albumin/Globulin Ratio 1.1 Micro: Microbiology 02/03/25 01:36 Mucosa - Nasopharyngeal Respiratory Panel (PCR) - Final 02/02/25 21:25 Urine, Clean Catch Legionella Antigen - Final 02/02/25 21:25 Urine, Clean Catch Streptococcus pneumoniae Antigen (M - Final Radiography Diagnostic Testing: Radiology Impression Brain CT 02/02/25 20:09 IMPRESSION: 1. No acute intracranial abnormality. 2. Mild-moderate volume loss and chronic microangiopathic changes. 3. Chronic paranasal sinus disease. Reading Location: [facility] Chest X-Ray 02/02/25 20:20 IMPRESSION: Pulmonary findings as above. Reading Location: [facility] Foot X-Ray 02/02/25 20:20 IMPRESSION: No acute osseous abnormality. Reading Location: [facility] Physical Exam Narrative General: Alert but drowsy, Oriented x1-2, Cooperative, No apparent distress HEENT: Atraumatic, PERRLA, EOMI, Normocephalic Oral: Moist Mucosa Neck: Supple, No JVD Lungs: Diminished, Normal air movement, No rhonchi, No wheeze, No rales Cardiovascular: Regular rate, Regular Rhythm, Normal S1, Normal S2, No murmurs Abdomen: Soft, Non Tender, Non-Distended, No Hepato-splenomegaly Extremities: No edema, Capillary Refill Less than 3 Seconds Skin: Right lateral foot redness, dressing intact Musculoskeletal: No Tenderness to Palpation of Joints or Extremities Neurological: No focal neurological deficits, Motor Exam 5/5 strength throughout, Sensory exam intact to light touch and pain Psych/Mental Status: Flat Assessment & Plan Assessment/Plan (1) Pneumonia: PLAN: Plan 1. Sepsis secondary to left sided pneumonia as well as diabetic foot ulcer on the left ? Continue with broad-spectrum antibiotics ? Appreciate podiatry's assistance ? Will wean oxygen as able ? Cultures are pending ? Magnesium is corrected with treatment overnight 2. Paroxysmal A-fib/history of AAA status post repair 2006/essential HTN/HLD/history of sick sinus syndrome status post pacemaker placement ? Continue with his home blood pressure medications ? Blood pressures appear stable ? Continue with cholesterol medications ? Will hold his home Eliquis for the possibility of surgery ? Echo on 02/12/2023 with an EF of 55 to 60% with mild MV insufficiency, he does have a history of aortic valve replacement 3. DM2 ? Hold his home oral right medications ? Continue with insulin ? Accu-Cheks ACHS ? Continue with sliding scale insulin ? Will monitor and make adjustments as necessary 4. GERD with a history of GI bleed ? He had been transitioned from Coumadin to Eliquis ? Will hold Eliquis in preparation for possible surgery ? Continue with PPI and Carafate 5. Dementia/anxiety/depression ? Stable, his dementia may be a little bit worse secondary to the infection ? Continue with his home medications 6. BPH with obstruction ? Continue with his Flomax ? Stable 7. Iron deficiency anemia ? Stable ? Continue to monitor ? Continue with iron supplementation DVT: Lovenox Charges/Coding Visit Charges Inpatient E&M: 81886 Subs Hosp L2 02/03/25 1156 <Electronically signed by Hugo Cervantes MD> Cosigner Signature (if applicable): CC: ~ Signed [facility] Work Phone: [phone]) [phone] Consult note Author Aneesh Suazo [facility] Note Date/Time February 03, 2025 2:[address] [facility] Medical Records Department [address] [place] [address] Pharmacokinetic/Renal -Consult 02/03/25 0208 MR#: [id number] Acct: [id number] Name: RICHARD ROY Rep #:[id number] : 1945 79 From: Aneesh Suazo PCP: Kuldip Cosby ASSESSMENT SPECIALISTJay Jay Status:ADM IN Location: [place] [id number]- Consult Antibiotic Management Pharmacy has been consulted to manage selected antibiotic: Vancomycin Type of Intervention Type of Consult: New start Suspected Infection Suspected Infection: Sepsis and Pneumonia Labs Labs: Sodium 141 mmol/L (133-145) 02/02/25 19:56 Potassium 3.8 mmol/L (3.3-5.1) 02/02/25 19:56 Chloride 104 mmol/L (98-108) 02/02/25 19:56 Carbon Dioxide 22.4 mmol/L (21.0-32.0) 02/02/25 19:56 Anion Gap 14 (5-15) 02/02/25 19:56 BUN 18 mg/dL (4-19) 02/02/25 19:56 Creatinine 1.04 mg/dL (0.70-1.20) 02/02/25 19:56 Est GFR (MDRD) Non-Af 74 (>60) 02/02/25 19:56 BUN/Creatinine Ratio 17.0 RATIO (10-20) 02/02/25 19:56 Glucose 195 mg/dL (70-99) H 02/02/25 19:56 Microbiology Microbiology: Microbiology 02/02/25 21:25 Urine, Clean Catch Legionella Antigen - Final 02/02/25 21:25 Urine, Clean Catch Streptococcus pneumoniae Antigen (M - Final Dosing Weight Weight used for dosin.5 kg Estimated Creatinine Clearance Estimated Creatinine Clearance: 79 Goal Trough Goal Trough: 15-20 mcg/mL Pharmacy Plan for Drug Dosing Pharmacy Plan for Drug Dosing: Pharmacy Service will continue to monitor and adjust dosing as required. Follow-Up Labs Follow-Up Labs: Trough: Vancomycin Date/Time Labs Ordered Labs to be done on [date and time ordered]: 02/04/25 @0930 02/03/25 0209 <Electronically signed by Aneesh estrada> Date _ Aneesh Suazo 02/03/25210 <Electronically signed by Karen gallo MD> Cosigner Signature (if applicable): Date Karen Aly MD CC: ~ Signed [facility] Work Phone: [phone] History and physical note Author Karen Aly [facility] Note Date/Time February 03, 2025 12:2 6am [facility] Medical Records Department [address] [place] [address] H&P Exam - Hospitalist 02/02/251 MR#: [id number] Acct: [id number] Name: RICHARD ROY Rep #:[id number] : 1945 79 From: Karen Aly MD PCP: Kuldip Cosby ASSESSMENT SPECIALIST-C Status:ADM [id number] - General General Date of Admission: 02/02/25 Date of Service: 02/02/25 Chief Complaint: Altered mental status, cough, fever HPI Narrative The patient is a 79 y/o M w/ PMHx: BPH with obstructive pathology, CKD stage IIIa, AAA s/p repair, Hx COVID-19, Hx GI bleed, Valvular heart disease s/p AVR, HTN, HLD, VTE w/ Hx DVT/PE, Diabetes mellitus type II, Obesity, 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 Patient baseline is typically alert andoriented to person and place. In the ED upon arrival patient was noted to have mild erythema to the left dorsal foot as well in addition to a small chronic lateral foot ulceration/wound which reports has been followed by wound careat the facility. Workup in the ED included T101.4, heart rate 93, BP 133/64, respiratory rate 31, initially 98% on a 15 L nonrebreather with most recent repeat vitals T101.4 axillary, heart rate 85, BP 114/58, respiratory rate 27, 92% on room air, CBC with WC 13.9, hemoglobin 10.9, MCV 85, platelet 203 with left shift and lymphopenia, coags with PT 17.3, INR 1.4, PTT 34, CMP with BUN/creatinine 18/1.04, GFR 74, glucose 195, lactic acid 3.1, hepatic profile not marked appearing, urinalysis with specific gravity 1.015, protein 30, glucose 250, ketone negative, occult blood 25, nitrite negative, leukocyte esterase negative with urine RBCs 5-10, urine WBCs 5-10 with 1+ urine bacteria, chest x-ray with possible left midlung consolidative opacity concerning for pneumonia, CT of the brain with no acute intracranial findings, plain film of the left foot with no acute osseous findings. In the ED patient ministered 1 L normal saline, Tylenol 1000 mg p.o. x 1, Toradol 50 mg IV x 1, IV vancomycin andIV Zosyn in addition to magnesium 4 g IV x 1. 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) Home Medications ?Medication ?Instructions ?Recorded ?Last Taken ?Type losartan 50 mg tablet 50 mg PO DAILY blood pressur e 03/24/18 06/01/24 History atorvastatin 40 mg tablet 40 mg PO QHS cholesterol 03/0105/31/24 History tamsulosin 0.4 mg capsule 0.4 mg PO QHS PROSTATE 03/0205/31/24 History cholecalciferol (vitamin D3) 1,250 1,250 mcg PO MO SUP PLEMENT 01/21/23 06/01/24 History mcg (50,000 unit) tablet metformin 1,000 mg tablet 1,000 mg PO BID DM 01/21/23 06/01/24 History insulin glargine 100 unit/mL (3 15 unit (0.15 mL) subc ut DAILY 01/26/23 06/01/24 Rx mL) subcutaneous pen (Lantus diabetes #15 mL Solostar U-100 Insulin) pantoprazole 40 mg tablet,delayed 40 mg PO BID #60 tab s 02/05/23 06/01/24 Rx release sucralfate 1 gram tablet 1 g PO 0700,1100,1600 #90 ta bs 02/05/23 06/01/24 Rx melatonin 3 mg tablet 3 mg PO QHS Insomnia 3 02/10/23 History memantine 10 mg tablet 10 mg PO BID #0 tabs 3 06/01/24 Rx bisacodyl 10 mg rectal suppository 10 mg W[place] DAILY PRN constipation 05/30/23 Unknown History loperamide 2 mg capsule 2 mg PO Q4H PRN loose stool 05/30/23 Unknown History (Anti-Diarrheal (loperamide)) acetaminophen 325 mg tablet 650 mg PO .q12hrs PAIN AND FEVER 10/07/23 06/01/24 History ferrous sulfate 325 mg (65 mg 325 mg PO DAILY 10/07/23 06/01/24 History iron) tablet apixaban 5 mg tablet (Eliquis) 5 mg PO BID #60 tabs 05/30/24 Rx paroxetine HCl 30 mg tablet 30 mg PO QDAY 04/07/24 History ipratropium 0.5 mg-albuterol 3 mg 3 ml inhalation Q4H PRN shortness 02/02/25 Unknown History (2.5 mg base)/3 mL nebulization of breath soln metoprolol succinate 25 mg capsule 25 mg PO DAILY 01/13 09/08 Unknown History sprinkle, ext. release 24 hr (Kapspargo Sprinkle) Allergy/AdvReac Type Severity Reaction Status Date / Time propofol AdvReac Other Verified 02/02/25 19:42 Family History Mother Heart disease Diabetes Hypertension Father Heart disease Surgical History History of AAA (abdominal aortic aneurysm) repair History of foot surgery Hx of abdominal surgery H/O aortic valve repair History of thoracic aortic aneurysm repair Social History housing: [facility] current occupational status: retired Smoking Status: Never smoker alcohol intake: never substance use type: does not use ROS Review of Systems ROS Unobtainable: due to encephalopathy and due to mental condition Vital Signs Vital Signs Vital Signs: 02/02/25 19:42 02/02/25 19:49 02/02/25 20:14 Temperature 101.4 F H 101.4 F H Temperature Source Axillary Axillary Pulse Rate 93 92 Respiratory Rate 31 H 32 H Respiratory Effort Respiratory Pattern Blood Pressure 133/64 H 133/64 H Blood Pressure Mean 87 87 Pulse Ox 98 95 Oxygen Delivery Method Non-Rebreather Room Air Room Air Oxygen Flow Rate (L/min) 15 02/02/25 20:49 02/02/25 22:00 02/02/25 22:04 Temperature 101.4 F H Temperature Source Axillary Pulse Rate 88 85 Respiratory Rate 16 27 H Respiratory Effort Normal Respiratory Pattern Normal Blood Pressure 125/105 H 114/58 L Blood Pressure Mean 111 76 Pulse Ox 94 92 Oxygen Delivery Method Room Air Room Air Oxygen Flow Rate (L/min) Weight Weight: 263 lb 7.238 oz Body Mass Index (BMI) 35.7 Physical Exam Narrative Physical Examination: General: Awakens to stimuli, alert with questioning but notably fatigued and lethargic, will answer some question, no acute distress. Skin: Normal color, normal turgor, no icterus, no cyanosis except for occasionalstage ecchymoses, abrasion in addition to left foot lateral primarily dorsal distal erythema with a small wound on the lateral side but no drainage or foul odor noted. HEENT: AT/NC, EOMI, PERRLA, dry MM, no carotid bruits or JVD noted. Lungs: Diminished, greater bases, mildly decreased effort, mildly increased respiratory rate but no distress, no markedly appreciated rales, ronchi or wheezing. Heart: Regular rate and rhythm/paced; no gallop, rub audible. Abdomen: Soft, obese, NTTP, ND, hypoactive BS, no appreciated HSM. Extremities: No cyanosis, no clubbing, pedal to distal amador chronic edema. Neurological: Awakens to stimuli, alert with questioning but notably fatigued and lethargic, will answer some questions, no acute distress, cognitive functiondecreased from baseline with underlying cognitive impairment baseline, pupils equally reactive to light and accommodation, cranial nerves grossly normal, moving all 4 extremities, no focal deficits, strength severely globally decreased. Psychiatric: Affect appears flat, fatigued, no acute evidence of depressive or anxiety feelings but does have underlying history. Results Lab / Micro Data 02/02/25 19:56 02/02/25 19:56 Labs: Laboratory Results - last 24 hr 02/02/25 19:56: WBC 13.9 H, RBC 3.94 L, Hgb 10.9 L, Hct 33.5 L, MCV 85.0, MCH 27.7, MCHC 32.5, RDW Std Deviation 42.2, RDW Coeff of Nathaniel 13.6, Plt Count 203, MPV 9.4, Immature Gran % (Auto) 0.700, Neut % (Auto) 86.2 H, Lymph % (Auto) 3.6 L, Lea % (Auto) 8.7, Eos % (Auto) 0.6, Baso % (Auto) 0.2, Absolute Neuts (auto)12.0 H, Absolute Lymphs (auto) 0.50 L, Nucleated RBC % 0, PT 17.3 H, INR 1.4, APTT 34.0, Sodium 141, Potassium 3.8, Chloride 104, Carbon Dioxide 22.4, Anion Gap 14, BUN 18, Creatinine 1.04, Estim Creat Clear Calc 79.39, Est GFR (MDRD) Non-Af 74, BUN/Creatinine Ratio 17.0, Glucose 195 H, Lactic Acid 3.1 H*, Calcium8.7, Total Bilirubin 0.50, AST 15, ALT 10, Alkaline Phosphatase 115, Total Protein 5.8 L, Albumin 3.5, Globulin 2.3, Albumin/Globulin Ratio 1.5 02/02/25 21:25: Urine Color Yellow, Urine Clarity Clear, Urine pH 5.0, Ur Specific Wheeler 1.015, Urine Protein 30 H, Urine Glucose (UA) 250 H, Urine Ketones Negative, Urine Occult Blood 25 H, Urine Nitrite Negative, Urine Bilirubin Negative, Urine Urobilinogen Normal, Ur Leukocyte Esterase Negative, Urine RBC 5-10 SEEN, Urine WBC 5-10 SEEN, Ur Squamous Epith Cells 0-5 SEEN, Urine Bacteria 1+, Urine Mucus 0 SEEN Imaging Radiology Impression Brain CT 02/02/25 20:09 IMPRESSION: 1. No acute intracranial abnormality. 2. Mild-moderate volume loss and chronic microangiopathic changes. 3. Chronic paranasal sinus disease. Reading Location: [facility] Chest X-Ray 02/02/25 20:20 IMPRESSION: Pulmonary findings as above. Reading Location: [facility] Foot X-Ray 02/02/25 20:20 IMPRESSION: No acute osseous abnormality. Reading Location: [facility] Assessment & Plan Assessment/Plan (1) Pneumonia: PLAN: Plan The patient is a 79 y/o M w/ PMHx: BPH with obstructive pathology, CKD stage IIIa, AAA s/p repair, Hx COVID-19, Hx GI bleed, Valvular heart disease s/p AVR, HTN, HLD, VTE w/ Hx DVT/PE, Diabetes mellitus type II, Obesity, 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 #1. Acute Sepsis secondary to Concern for left midlung pneumonia and #2 (Fever,leukocytosis, mental status change, lactic acidosis): Given stable vital signs will admit to medical surgical floor, currently not requiring any oxygen but if necessary will certainly supplement with wean as tolerated room air, ATC DuoNeb therapy, PRN albuterol, maintain on IV Zosyn and Vancomycin given #2, HOB, IS parameters w/ pending sputum cultures and urine antigens. Bld cx x 2 obtained inthe ED. PT/OT/ST consultations as well as case management for discharge planning. #2. Left Foot Diabetic Wound/Ulcer: As noted above we will maintain on IV vancomycin and IV Zosyn, currently there is no discharge but if onset low threshold today wound culture and MRSA wound, plan repeat CBC in AM, will obtainESR and CRP upon admission as well as in a.m., will request podiatry evaluation per discussion with family, continue affected extremity elevation above heart when seated and in bed, monitor erythema outline with VS checks, wound RN consultation also requested. #3. Severe hypomagnesemia: Magnesium 0.9, 4 g IV initiated, will repeat level in AM. #4. History of VTE: Patient with history of DVT, PE, previously on Coumadin eventually discontinued given GI bleed, from current presentation noted transition to Eliquis, will cautiously continue. #5. Advanced dementia unclear specific type with unclear behavior disturbance history: Complicates presentation, will continue patient home memantine home regimen, PT/OT/case management consulted for discharge planning. #6. Valvular heart disease: Status post AV repair, most recent echocardiogram noted 02/12/2023 with EF 55 to 60%, mild MV insufficiency. #7. PAF: Will continue patient home metoprolol and Eliquis regimen. #8. History AAA: Status post repair 2006, will continue home Eliquis, statin therapy, hypertensive regimen as noted. #9. Diabetes mellitus type II: Hold oral home regimen, continue home insulin regimen, ADA diet, accu checks w/ ISS. #10. Chronic normocytic anemia/iron deficiency anemia: Admission hemoglobin 10.9, MCV 85, baseline hemoglobin more recently 11-12 range, will continue to trend, continue iron supplementation. #11. Hypertension: Continue home regimen including metoprolol, losartan with hold parameters as needed, PRN hydralazine. #12. Hyperlipidemia: Will continue patient on statin therapy. #13. History sick sinus syndrome, second-degree Mobitz type II heart block: Status post pacemaker placement, encourage continued outpatient evaluation and interrogation as previously arranged. #14. Anxiety and depression: Will continue patient home paroxetine regimen, encourage continued outpatient follow-up as previously arranged. #15. GERD with history of GI bleed: Will continue patient on PPI and sucralfatehome regimen. #16. BPH with obstructive pathology: Will continue patient home Flomax regimen,monitor for retention. Rodrigues initially placed in the ED, will de- escalate in a.m. #17. DVT prophylaxis: Will continue patient on Eliquis regimen. #18. CODE status: Patient ANTHONY is his /son who is present and living will is currently in place. Discussed CODE status at length including difference between FULL code, DNR-CCA and DNR-CC status. Following discussions about the differences in these status, requested DNR-CCA, no intubation. Also discussed the concept of central line and pressor therapy and patient and spouse declined usage of these items. Advanced Care Planning Face to Face Time: 16 minutes. Charges/Coding Visit Charges Inpatient E&M: 23254 Init Hosp L3 Procedures Hospitalists Procedures: 24191 Advncd Care Plan 30 Min 02/03/25 0026 <Electronically signed by Karen Aly MD> Cosigner Signature (if applicable): CC: Dr. Karen Aly MD; Kuldip Cosby~ Signed [facility] Work Phone: [phone]) [phone] Evaluation note* Diagnosis Onset Date Resolution Status Admit Date Acute osteomyelitis of metat arsal bone of left foot acute February 02 11:12pm Cellulitis of left lower limb acute February 02, 2025 11:12pm Diabetes mellitus with diabe tic polyneuropathy acute February 02, 2025 11:12pm PAD (peripheral artery disease) acut e February 02, 2025 11:12pm Pneumonia acute February 02 11:12pm Type 2 diabetes mellitus wit h foot ulcer acute February 02, 2025 11:12pm [facility] Work Phone: 1(222) [phone] Discharge summary Author Nicholas Galarza [facility] Note Date/Time February 02, 2025 10:4 5pm [facility] Medical Records Department [address] [place] [address] Emergency Department Summary 02/02/25 MR#: [id number] Acct: [id number] Name: KIRILLRICHARD Carrillo Rep #:[id number] : 1945 79 From: Nicholas Lemons PCP: Kuldip Cosby ASSESSMENT SPECIALIST-C Status:REG ER Location: ED HPI History of Present Illness Chief Complaint: Fever PFSH 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) Home Medications ?Medication ?Instructions ?Recorded ?Last Taken ?Type losartan 50 mg tablet 50 mg PO DAILY blood pressur e 03/24/18 06/01/24 History atorvastatin 40 mg tablet 40 mg PO QHS cholesterol 03/0105/31/24 History tamsulosin 0.4 mg capsule 0.4 mg PO QHS PROSTATE 03/0205/31/24 History cholecalciferol (vitamin D3) 1,250 1,250 mcg PO MO SUP PLEMENT 01/21/23 06/01/24 History mcg (50,000 unit) tablet metformin 1,000 mg tablet 1,000 mg PO BID DM 01/21/23 06/01/24 History insulin glargine 100 unit/mL (3 15 unit (0.15 mL) subc ut DAILY 01/26/23 06/01/24 Rx mL) subcutaneous pen (Lantus diabetes #15 mL Solostar U-100 Insulin) pantoprazole 40 mg tablet,delayed 40 mg PO BID #60 tab s 02/05/23 06/01/24 Rx release sucralfate 1 gram tablet 1 g PO 0700,1100,1600 #90 ta bs 02/05/23 06/01/24 Rx melatonin 3 mg tablet 3 mg PO QHS Insomnia 3 02/10/23 History memantine 10 mg tablet 10 mg PO BID #0 tabs 3 06/01/24 Rx metoprolol succinate 25 mg 25 mg PO DAILY blood pressu re #30 03/27/23 05/31/24 Rx tablet,extended release 24 hr tabs bisacodyl 10 mg rectal suppository 10 mg WV DAILY PRN constipation 05/30/23 Unknown History loperamide 2 mg capsule 2 mg PO Q4H PRN loose stool 05/30/23 Unknown History (Anti-Diarrheal (loperamide)) acetaminophen 325 mg tablet 650 mg PO .q12hrs PAIN AND FEVER 10/07/23 06/01/24 History ferrous sulfate 325 mg (65 mg 325 mg PO DAILY 10/07/23 06/01/24 History iron) tablet apixaban 5 mg tablet (Eliquis) 5 mg PO BID #60 tabs 05/30/24 Rx paroxetine HCl 30 mg tablet 30 mg PO QDAY 04/07/24 History Allergy/AdvReac Type Severity Reaction Status Date / Time propofol AdvReac Other Verified 02/02/25 19:42 Family History Mother Heart disease Diabetes Hypertension Father Heart disease Surgical History History of AAA (abdominal aortic aneurysm) repair History of foot surgery Hx of abdominal surgery H/O aortic valve repair History of thoracic aortic aneurysm repair Social History [facility] current occupational status: retired Smoking Status: Never smoker alcohol intake: never substance use type: does not use EXAM Physical Exam Const Vital Signs: 02/02/25 19:42 02/02/25 19:49 02/02/25 20:14 Temperature 101.4 F H 101.4 F H Temperature Source Axillary Axillary Pulse Rate 93 92 Respiratory Rate 31 H 32 H Respiratory Effort Respiratory Pattern Blood Pressure 133/64 H 133/64 H Blood Pressure Mean 87 87 Pulse Ox 98 95 Oxygen Delivery Method Non-Rebreather Room Air Room Air Oxygen Flow Rate (L/min) 15 02/02/25 20:49 02/02/25 22:00 02/02/25 22:04 Temperature 101.4 F H Temperature Source Axillary Pulse Rate 88 85 Respiratory Rate 16 27 H Respiratory Effort Normal Respiratory Pattern Normal Blood Pressure 125/105 H 114/58 L Blood Pressure Mean 111 76 Pulse Ox 94 92 Oxygen Delivery Method Room Air Room Air Oxygen Flow Rate (L/min) [facility] [place] Narrative Medical decision making narrative: HISTORY OF PRESENT ILLNESS: Chief complaint: Cough, lethargy, altered mental status and fever 79-year-old male history of type 2 diabetes, hyperlipidemia, PE, A-fib on Eliquis, secondary heart block status post pacemaker presents with recent cough,lethargy and fever. Also noted altered mental status. History is provided by and son. notes [facility] No she was called because he has been more lethargic. She states he thought he may have had pneumonia. The patient cannot provide a lot of history because he is altered. She notes his baseline mental status is typically alert and oriented to person and place but not necessarily to time REVIEW OF SYSTEMS: Unable to obtain a reliable review of system secondary to altered mental status PHYSICAL EXAM: Nursing triage notes reviewed, Vital signs reviewed Constitutional: please see mdm HENT: MMM Eyes: Pupils equal round and reactive to light, Extraocular muscles intact Neck: No stridor, no JVD, full neck ROM Lungs: Clear to auscultation, No wheezing or rales. No increased work of breathing, no conversational dyspnea, no accessory muscle use, no nasal flaring. No respiratory distress noted Heart: Regular rate and rhythm, No murmurs, No rubs and No gallops, 2+ distal pulses (radial, femoral, posterior tibial) in all extremities Abdomen: Soft, there is no tenderness, rigidity, rebound or guarding, no obviousperitoneal signs, no palpable pulsatile abdominal masses, no auscultated abdominal bruit : No CVAT Extremities: No edema Neuro: Sleepy, drowsy, responsive to voice. Oriented to person but not place ortime. Moves all 4 extremities has chronic neuropathy bilateral lower extremities. Has sensation intact in bilateral upper extremities. No obvious cranial nerve deficits. Skin: No rash or lesions noted MEDICAL DECISION MAKING: Chief Complaint: please see HPI External records reviewed: No recent hospitalizations, reviewed medications. [facility] which reported no obvious focal infiltrate Factors affecting care: n as per HPI Social determinants of health: [facility] resident History obtained from others: EMS Consults: Internal medicine MDM Narrative: The patient was initially tachypneic with a respiratory rate of 31, febrile witha temperature 101.4 initially on nonrebreather per triage vitals. On my evaluation Given initial SIRS criteria and obvious infectious source of the left foot concerning for infected diabetic foot ulcer versus osteomyelitis. Sepsis alert called. Sepsis order set was used. Initial 30 cc/kg bolus was given. Vanco/Zosyn ordered per sepsis order set. I considered the following differential diagnosis: Pneumonia, UTI, osteomyelitis, cellulitis. I obtained a broad lab and imaging workup to further determine if the patient was suffering from a life-threatening etiology. Patient was initially given broad-spectrum antibiotics and received ideal body weight 30 cc/kg bolus ALL IMAGES (IF OBTAINED) HAVE BEEN PERSONALLY REVIEWED AND INTERPRETED BY MYSELF. CBC with leukocytosis, mild anemia that is baseline, no thrombocytopenia No coagulopathy noted BMP without significant electrolyte abnormalities, no acute kidney Initial lactate elevated consistent with endorgan hypoperfusion LFTs showed no signs of obstructive Urinalysis shows no evidence of urinary inflammation suggestive of UTI Chest x-ray was read reviewed personally myself show no evidence of obvious pneumonia. Radiologist noted possible pneumonia in the left midlung. I do not appreciate this however the patient did receive broad-spectrum antibiotics X-ray of the patient's left foot was read reviewed personally by myself showed no evidence of obvious osteomyelitis The synthesis of the patient's history, physical exam, labs images suggest likely sepsis from infected diabetic foot ulcer of the left foot. Patient did receive broad-spectrum antibiotics and will be admitted to the hospital. Upon re-evaluation patient's volume status and organ perfusion were appropriate. No indication for pressors at this time The patient and/or family, caregivers express understanding. The patient and/orfamily, caregivers agrees with the plan. Shared decision making: I will have a discussion with the patient and or visitors regarding risk/benefits of further testing or admission. They will be made aware of of the risk/benefits inherent in this decision they will be given the opportunity to voice understanding. Total critical care time today provided was at least 0 minutes. This excludes separately billable procedures. Critical care time (if documented) is secondary to the patient having high probability of clinically significant/life threatening deterioration in the patient's condition which required my urgent intervention. Impression: 1. Sepsis 2. Infected diabetic foot ulcer 3. Leukocytosis 4. Elevated lactic acid Dispo: Discharge This note was generated with [employer] dictation software. It may contain incorrectwords, spelling, and punctuation that were not noted in review of the chart prior to signing. Lab Data Labs: Laboratory Results - last 24 hr 02/02/25 02/02/25 19:56 21:25 WBC 13.9 H RBC 3.94 L Hgb 10.9 L Hct 33.5 L MCV 85.0 MCH 27.7 MCHC 32.5 RDW Std Deviation 42.2 RDW Coeff of Nathaniel 13.6 Plt Count 203 MPV 9.4 Immature Gran % (Auto) 0.700 Neut % (Auto) 86.2 H Lymph % (Auto) 3.6 L Lea % (Auto) 8.7 Eos % (Auto) 0.6 Baso % (Auto) 0.2 Absolute Neuts (auto) 12.0 H Absolute Lymphs (auto) 0.50 L Nucleated RBC % 0 PT 17.3 H INR 1.4 APTT 34.0 Sodium 141 Potassium 3.8 Chloride 104 Carbon Dioxide 22.4 Anion Gap 14 BUN 18 Creatinine 1.04 Estim Creat Clear Calc 79.39 Est GFR (MDRD) Non-Af 74 BUN/Creatinine Ratio 17.0 Glucose 195 H Lactic Acid 3.1 H* Calcium 8.7 Total Bilirubin 0.50 AST 15 ALT 10 Alkaline Phosphatase 115 Total Protein 5.8 L Albumin 3.5 Globulin 2.3 Albumin/Globulin Ratio 1.5 Urine Color Yellow Urine Clarity Clear Urine pH 5.0 Ur Specific Wheeler 1.015 Urine Protein 30 H Urine Glucose (UA) 250 H Urine Ketones Negative Urine Occult Blood 25 H Urine Nitrite Negative Urine Bilirubin Negative Urine Urobilinogen Normal Ur Leukocyte Esterase Negative Urine RBC 5-10 SEEN Urine WBC 5-10 SEEN Ur Squamous Epith Cells 0-5 SEEN Urine Bacteria 1+ Urine Mucus 0 SEEN Radiography Diagnostic Testing: Clinical Impression(s) from Imaging Studies Brain CT 02/02/25 20:09 IMPRESSION: 1. No acute intracranial abnormality. 2. Mild-moderate volume loss and chronic microangiopathic changes. 3. Chronic paranasal sinus disease. Reading Location: [facility] Chest X-Ray 02/02/25 20:20 IMPRESSION: Pulmonary findings as above. Reading Location: [facility] Foot X-Ray 02/02/25 20:20 IMPRESSION: No acute osseous abnormality. Reading Location: [facility] Discharge Plan Triage Chief Complaint: Fever ED Provider: Nicholas Galarza Dx/Rx/DC Orders Prescriptions: No Action metoprolol succinate 25 mg tablet extended release 24 hr 25 mg PO DAILY Qty: 30 0RF ferrous sulfate 325 mg (65 mg iron) tablet 325 mg PO DAILY paroxetine HCl 30 mg tablet 30 mg PO QDAY losartan 50 MG tablet 50 mg PO DAILY atorvastatin 40 MG tablet 40 mg PO QHS tamsulosin 0.4 mg capsule 0.4 mg PO QHS Patient Comments: TAKE 1 CAPSULE BY MOUTH EVERYDAY AT BEDTIME sucralfate 1 gram Tablet 1 g PO 0700,1100,1600 Qty: 90 2RF pantoprazole 40 mg tablet,delayed release (DR/EC) 40 mg PO BID Qty: 60 2RF melatonin 3 mg Tablet 3 mg PO QHS Patient Comments: PRN PER HALFWAY MAR. memantine 10 mg Tablet 10 mg PO BID Qty: 0 0RF acetaminophen 325 mg tablet 650 mg PO .q12hrs Patient Comments: PRN PER HALFWAY MAR bisacodyl 10 mg suppository 10 mg WV DAILY PRN (Reason: constipation) loperamide [Anti-Diarrheal (loperamide)] 2 mg capsule 2 mg PO Q4H PRN (Reason: loose stool) Rx Instructions: administer after each loose stool until symptoms controlled; do not exceed 8 mg per 24 hrs cholecalciferol (vitamin D3) 1,250 mcg (50,000 unit) tablet 1,250 mcg PO MO metformin 1,000 mg tablet 1,000 mg PO BID insulin glargine [Lantus Solostar U-100 Insulin] 100 UNITS/ML insulin pen 15 unit subcut DAILY Qty: 15 0RF Eliquis 5 mg tablet 5 mg PO BID Qty: 60 11RF Primary Care Provider: Kuldip Cosby Referrals: Luis Caldera MD [Non-Staff] - Print Language: Jamaican What to do if you have Problems For any increased pain, shortness of breath, bleeding, nausea or vomiting, chestpain, or any unexpected problems, contact your Primary Care Provider. Call [facility] ([phone]) or report to the closest Emergency Room. Call 911 if necessary. 02/02/255 <Electronically signed by Nicholas Galarza DO> Cosigner Signature (if applicable): CC: Kuldip Cosby ~ Signed [facility] Work Phone: [phone] Discharge summary Author Nicholas Galarza [facility] Note Date/Time February 02, 2025 10:4 5pm [facility] Medical Records Department [address] [place] [address] Emergency Department Summary 02/02/25 MR#: [id number] Acct: [id number] Name: RICHARD ROY Rep #:[id number] : 1945 79 From: Nicholas Lemons PCP: Kuldip Cosby Status:REG ER Location: ED HPI History of Present Illness Chief Complaint: Fever PFSH 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) Home Medications ?Medication ?Instructions ?Recorded ?Last Taken ?Type losartan 50 mg tablet 50 mg PO DAILY blood pressur e 03/24/18 06/01/24 History atorvastatin 40 mg tablet 40 mg PO QHS cholesterol 03/0105/31/24 History tamsulosin 0.4 mg capsule 0.4 mg PO QHS PROSTATE 03/0205/31/24 History cholecalciferol (vitamin D3) 1,250 1,250 mcg PO MO SUP PLEMENT 01/21/23 06/01/24 History mcg (50,000 unit) tablet metformin 1,000 mg tablet 1,000 mg PO BID DM 01/21/23 06/01/24 History insulin glargine 100 unit/mL (3 15 unit (0.15 mL) subc ut DAILY 01/26/23 06/01/24 Rx mL) subcutaneous pen (Lantus diabetes #15 mL Solostar U-100 Insulin) pantoprazole 40 mg tablet,delayed 40 mg PO BID #60 tab s 02/05/23 06/01/24 Rx release sucralfate 1 gram tablet 1 g PO 0700,1100,1600 #90 ta bs 02/05/23 06/01/24 Rx melatonin 3 mg tablet 3 mg PO QHS Insomnia 3 02/10/23 History memantine 10 mg tablet 10 mg PO BID #0 tabs 3 06/01/24 Rx metoprolol succinate 25 mg 25 mg PO DAILY blood pressu re #30 03/27/23 05/31/24 Rx tablet,extended release 24 hr tabs bisacodyl 10 mg rectal suppository 10 mg WV DAILY PRN constipation 05/30/23 Unknown History loperamide 2 mg capsule 2 mg PO Q4H PRN loose stool 05/30/23 Unknown History (Anti-Diarrheal (loperamide)) acetaminophen 325 mg tablet 650 mg PO .q12hrs PAIN AND FEVER 10/07/23 06/01/24 History ferrous sulfate 325 mg (65 mg 325 mg PO DAILY 10/07/23 06/01/24 History iron) tablet apixaban 5 mg tablet (Eliquis) 5 mg PO BID #60 tabs 05/30/24 Rx paroxetine HCl 30 mg tablet 30 mg PO QDAY 04/07/24 History Allergy/AdvReac Type Severity Reaction Status Date / Time propofol AdvReac Other Verified 02/02/25 19:42 Family History Mother Heart disease Diabetes Hypertension Father Heart disease Surgical History History of AAA (abdominal aortic aneurysm) repair History of foot surgery Hx of abdominal surgery H/O aortic valve repair History of thoracic aortic aneurysm repair Social History housing: [facility] current occupational status: retired Smoking Status: Never smoker alcohol intake: never substance use type: does not use EXAM Physical Exam Const Vital Signs: 02/02/25 19:42 02/02/25 19:49 02/02/25 20:14 Temperature 101.4 F H 101.4 F H Temperature Source Axillary Axillary Pulse Rate 93 92 Respiratory Rate 31 H 32 H Respiratory Effort Respiratory Pattern Blood Pressure 133/64 H 133/64 H Blood Pressure Mean 87 87 Pulse Ox 98 95 Oxygen Delivery Method Non-Rebreather Room Air Room Air Oxygen Flow Rate (L/min) 15 02/02/25 20:49 02/02/25 22:00 02/02/25 22:04 Temperature 101.4 F H Temperature Source Axillary Pulse Rate 88 85 Respiratory Rate 16 27 H Respiratory Effort Normal Respiratory Pattern Normal Blood Pressure 125/105 H 114/58 L Blood Pressure Mean 111 76 Pulse Ox 94 92 Oxygen Delivery Method Room Air Room Air Oxygen Flow Rate (L/min) [facility] MDM Narrative Medical decision making narrative: HISTORY OF PRESENT ILLNESS: Chief complaint: Cough, lethargy, altered mental status and fever 79-year-old male history of type 2 diabetes, hyperlipidemia, PE, A-fib on Eliquis, secondary heart block status post pacemaker presents with recent cough,lethargy and fever. Also noted altered mental status. History is provided by and son. notes [facility] No she was called because he has been more lethargic. She states he thought he may have had pneumonia. The patient cannot provide a lot of history because he is altered. She notes his baseline mental status is typically alert and oriented to person and place but not necessarily to time REVIEW OF SYSTEMS: Unable to obtain a reliable review of system secondary to altered mental status PHYSICAL EXAM: Nursing triage notes reviewed, Vital signs reviewed Constitutional: please see mdm HENT: MMM Eyes: Pupils equal round and reactive to light, Extraocular muscles intact Neck: No stridor, no JVD, full neck ROM Lungs: Clear to auscultation, No wheezing or rales. No increased work of breathing, no conversational dyspnea, no accessory muscle use, no nasal flaring. No respiratory distress noted Heart: Regular rate and rhythm, No murmurs, No rubs and No gallops, 2+ distal pulses (radial, femoral, posterior tibial) in all extremities Abdomen: Soft, there is no tenderness, rigidity, rebound or guarding, no obviousperitoneal signs, no palpable pulsatile abdominal masses, no auscultated abdominal bruit : No CVAT Extremities: No edema Neuro: Sleepy, drowsy, responsive to voice. Oriented to person but not place ortime. Moves all 4 extremities has chronic neuropathy bilateral lower extremities. Has sensation intact in bilateral upper extremities. No obvious cranial nerve deficits. Skin: No rash or lesions noted MEDICAL DECISION MAKING: Chief Complaint: please see HPI External records reviewed: No recent hospitalizations, reviewed medications. [facility] which reported no obvious focal infiltrate Factors affecting care: n as per HPI Social determinants of health: [facility] resident History obtained from others: EMS Consults: Internal medicine MDM Narrative: The patient was initially tachypneic with a respiratory rate of 31, febrile witha temperature 101.4 initially on nonrebreather per triage vitals. On my evaluation Given initial SIRS criteria and obvious infectious source of the left foot concerning for infected diabetic foot ulcer versus osteomyelitis. Sepsis alert called. Sepsis order set was used. Initial 30 cc/kg bolus was given. Vanco/Zosyn ordered per sepsis order set. I considered the following differential diagnosis: Pneumonia, UTI, osteomyelitis, cellulitis. I obtained a broad lab and imaging workup to further determine if the patient was suffering from a life-threatening etiology. Patient was initially given broad-spectrum antibiotics and received ideal body weight 30 cc/kg bolus ALL IMAGES (IF OBTAINED) HAVE BEEN PERSONALLY REVIEWED AND INTERPRETED BY MYSELF. CBC with leukocytosis, mild anemia that is baseline, no thrombocytopenia No coagulopathy noted BMP without significant electrolyte abnormalities, no acute kidney Initial lactate elevated consistent with endorgan hypoperfusion LFTs showed no signs of obstructive Urinalysis shows no evidence of urinary inflammation suggestive of UTI Chest x-ray was read reviewed personally myself show no evidence of obvious pneumonia. Radiologist noted possible pneumonia in the left midlung. I do not appreciate this however the patient did receive broad-spectrum antibiotics X-ray of the patient's left foot was read reviewed personally by myself showed no evidence of obvious osteomyelitis The synthesis of the patient's history, physical exam, labs images suggest likely sepsis from infected diabetic foot ulcer of the left foot. Patient did receive broad-spectrum antibiotics and will be admitted to the hospital. Upon re-evaluation patient's volume status and organ perfusion were appropriate. No indication for pressors at this time The patient and/or family, caregivers express understanding. The patient and/orfamily, caregivers agrees with the plan. Shared decision making: I will have a discussion with the patient and or visitors regarding risk/benefits of further testing or admission. They will be made aware of of the risk/benefits inherent in this decision they will be given the opportunity to voice understanding. Total critical care time today provided was at least 0 minutes. This excludes separately billable procedures. Critical care time (if documented) is secondary to the patient having high probability of clinically significant/life threatening deterioration in the patient's condition which required my urgent intervention. Impression: 1. Sepsis 2. Infected diabetic foot ulcer 3. Leukocytosis 4. Elevated lactic acid Dispo: Discharge This note was generated with [employer] dictation software. It may contain incorrectwords, spelling, and punctuation that were not noted in review of the chart prior to signing. Lab Data Labs: Laboratory Results - last 24 hr 02/02/25 02/02/25 19:56 21:25 WBC 13.9 H RBC 3.94 L Hgb 10.9 L Hct 33.5 L MCV 85.0 MCH 27.7 MCHC 32.5 RDW Std Deviation 42.2 RDW Coeff of Nathaniel 13.6 Plt Count 203 MPV 9.4 Immature Gran % (Auto) 0.700 Neut % (Auto) 86.2 H Lymph % (Auto) 3.6 L Lea % (Auto) 8.7 Eos % (Auto) 0.6 Baso % (Auto) 0.2 Absolute Neuts (auto) 12.0 H Absolute Lymphs (auto) 0.50 L Nucleated RBC % 0 PT 17.3 H INR 1.4 APTT 34.0 Sodium 141 Potassium 3.8 Chloride 104 Carbon Dioxide 22.4 Anion Gap 14 BUN 18 Creatinine 1.04 Estim Creat Clear Calc 79.39 Est GFR (MDRD) Non-Af 74 BUN/Creatinine Ratio 17.0 Glucose 195 H Lactic Acid 3.1 H* Calcium 8.7 Total Bilirubin 0.50 AST 15 ALT 10 Alkaline Phosphatase 115 Total Protein 5.8 L Albumin 3.5 Globulin 2.3 Albumin/Globulin Ratio 1.5 Urine Color Yellow Urine Clarity Clear Urine pH 5.0 Ur Specific Wheeler 1.015 Urine Protein 30 H Urine Glucose (UA) 250 H Urine Ketones Negative Urine Occult Blood 25 H Urine Nitrite Negative Urine Bilirubin Negative Urine Urobilinogen Normal Ur Leukocyte Esterase Negative Urine RBC 5-10 SEEN Urine WBC 5-10 SEEN Ur Squamous Epith Cells 0-5 SEEN Urine Bacteria 1+ Urine Mucus 0 SEEN Radiography Diagnostic Testing: Clinical Impression(s) from Imaging Studies Brain CT 02/02/25 20:09 IMPRESSION: 1. No acute intracranial abnormality. 2. Mild-moderate volume loss and chronic microangiopathic changes. 3. Chronic paranasal sinus disease. Reading Location: [facility] Chest X-Ray 02/02/25 20:20 IMPRESSION: Pulmonary findings as above. Reading Location: [facility] Foot X-Ray 02/02/25 20:20 IMPRESSION: No acute osseous abnormality. Reading Location: [facility] Discharge Plan Triage Chief Complaint: Fever ED Provider: Nicholas Galarza Dx/Rx/DC Orders Prescriptions: No Action metoprolol succinate 25 mg tablet extended release 24 hr 25 mg PO DAILY Qty: 30 0RF ferrous sulfate 325 mg (65 mg iron) tablet 325 mg PO DAILY paroxetine HCl 30 mg tablet 30 mg PO QDAY losartan 50 MG tablet 50 mg PO DAILY atorvastatin 40 MG tablet 40 mg PO QHS tamsulosin 0.4 mg capsule 0.4 mg PO QHS Patient Comments: TAKE 1 CAPSULE BY MOUTH EVERYDAY AT BEDTIME sucralfate 1 gram Tablet 1 g PO 0700,1100,1600 Qty: 90 2RF pantoprazole 40 mg tablet,delayed release (DR/EC) 40 mg PO BID Qty: 60 2RF melatonin 3 mg Tablet 3 mg PO QHS Patient Comments: PRN PER HALFWAY MAR. memantine 10 mg Tablet 10 mg PO BID Qty: 0 0RF acetaminophen 325 mg tablet 650 mg PO .q12hrs Patient Comments: PRN PER HALFWAY MAR bisacodyl 10 mg suppository 10 mg WV DAILY PRN (Reason: constipation) loperamide [Anti-Diarrheal (loperamide)] 2 mg capsule 2 mg PO Q4H PRN (Reason: loose stool) Rx Instructions: administer after each loose stool until symptoms controlled; do not exceed 8 mg per 24 hrs cholecalciferol (vitamin D3) 1,250 mcg (50,000 unit) tablet 1,250 mcg PO MO metformin 1,000 mg tablet 1,000 mg PO BID insulin glargine [Lantus Solostar U-100 Insulin] 100 UNITS/ML insulin pen 15 unit subcut DAILY Qty: 15 0RF Eliquis 5 mg tablet 5 mg PO BID Qty: 60 11RF Primary Care Provider: Kuldip Cosby Referrals: Luis Caldera MD [Non-Staff] - Print Language: Jamaican What to do if you have Problems For any increased pain, shortness of breath, bleeding, nausea or vomiting, chestpain, or any unexpected problems, contact your Primary Care Provider. Call [facility] ([phone]) or report to the closest Emergency Room. Call 911 if necessary. 02/02/252244 <Electronically signed by Nicholas Galarza DO> Cosigner Signature (if applicable): CC: Kuldip Cosby ~ Signed [facility] Work Phone: [phone] History and physical note Author Karen Aly [facility] Note Date/Time February 03, 2025 12:2 6am [facility] Medical Records Department [address] [place] [address] H&P Exam - Hospitalist 02/02/252240 MR#: [id number] Acct: [id number] Name: RICHARD ROY Rep #:[id number] : 1945 79 From: Karen Aly MD PCP: Kuldip Cosby Status:ADM IN Location: [place] [id number] HPI - General General Date of Admission: 02/02/25 Date of Service: 02/02/25 Chief Complaint: Altered mental status, cough, fever HPI Narrative The patient is a 79 y/o M w/ PMHx: BPH with obstructive pathology, CKD stage IIIa, AAA s/p repair, Hx COVID-19, Hx GI bleed, Valvular heart disease s/p AVR, HTN, HLD, VTE w/ Hx DVT/PE, Diabetes mellitus type II, Obesity, 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 Patient baseline is typically alert andoriented to person and place. In the ED upon arrival patient was noted to have mild erythema to the left dorsal foot as well in addition to a small chronic lateral foot ulceration/wound which reports has been followed by wound careat the facility. Workup in the ED included T101.4, heart rate 93, BP 133/64, respiratory rate 31, initially 98% on a 15 L nonrebreather with most recent repeat vitals T101.4 axillary, heart rate 85, BP 114/58, respiratory rate 27, 92% on room air, CBC with WC 13.9, hemoglobin 10.9, MCV 85, platelet 203 with left shift and lymphopenia, coags with PT 17.3, INR 1.4, PTT 34, CMP with BUN/creatinine 18/1.04, GFR 74, glucose 195, lactic acid 3.1, hepatic profile not marked appearing, urinalysis with specific gravity 1.015, protein 30, glucose 250, ketone negative, occult blood 25, nitrite negative, leukocyte esterase negative with urine RBCs 5-10, urine WBCs 5-10 with 1+ urine bacteria, chest x-ray with possible left midlung consolidative opacity concerning for pneumonia, CT of the brain with no acute intracranial findings, plain film of the left foot with no acute osseous findings. In the ED patient ministered 1 L normal saline, Tylenol 1000 mg p.o. x 1, Toradol 50 mg IV x 1, IV vancomycin andIV Zosyn in addition to magnesium 4 g IV x 1. 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) Home Medications ?Medication ?Instructions ?Recorded ?Last Taken ?Type losartan 50 mg tablet 50 mg PO DAILY blood pressur e 03/24/18 06/01/24 History atorvastatin 40 mg tablet 40 mg PO QHS cholesterol 03/0105/31/24 History tamsulosin 0.4 mg capsule 0.4 mg PO QHS PROSTATE 03/0205/31/24 History cholecalciferol (vitamin D3) 1,250 1,250 mcg PO MO SUP PLEMENT 01/21/23 06/01/24 History mcg (50,000 unit) tablet metformin 1,000 mg tablet 1,000 mg PO BID DM 01/21/23 06/01/24 History insulin glargine 100 unit/mL (3 15 unit (0.15 mL) subc ut DAILY 01/26/23 06/01/24 Rx mL) subcutaneous pen (Lantus diabetes #15 mL Solostar U-100 Insulin) pantoprazole 40 mg tablet,delayed 40 mg PO BID #60 tab s 02/05/23 06/01/24 Rx release sucralfate 1 gram tablet 1 g PO 0700,1100,1600 #90 ta bs 02/05/23 06/01/24 Rx melatonin 3 mg tablet 3 mg PO QHS Insomnia 3 02/10/23 History memantine 10 mg tablet 10 mg PO BID #0 tabs 3 06/01/24 Rx bisacodyl 10 mg rectal suppository 10 mg WV DAILY PRN constipation 05/30/23 Unknown History loperamide 2 mg capsule 2 mg PO Q4H PRN loose stool 05/30/23 Unknown History (Anti-Diarrheal (loperamide)) acetaminophen 325 mg tablet 650 mg PO .q12hrs PAIN AND FEVER 10/07/23 06/01/24 History ferrous sulfate 325 mg (65 mg 325 mg PO DAILY 10/07/23 06/01/24 History iron) tablet apixaban 5 mg tablet (Eliquis) 5 mg PO BID #60 tabs 05/30/24 Rx paroxetine HCl 30 mg tablet 30 mg PO QDAY 04/07/24 History ipratropium 0.5 mg-albuterol 3 mg 3 ml inhalation Q4H PRN shortness 02/02/25 Unknown History (2.5 mg base)/3 mL nebulization of breath soln metoprolol succinate 25 mg capsule 25 mg PO DAILY 01/13 09/08 Unknown History sprinkle, ext. release 24 hr (Kapspargo Sprinkle) Allergy/AdvReac Type Severity Reaction Status Date / Time propofol AdvReac Other Verified 02/02/25 19:42 Family History Mother Heart disease Diabetes Hypertension Father Heart disease Surgical History History of AAA (abdominal aortic aneurysm) repair History of foot surgery Hx of abdominal surgery H/O aortic valve repair History of thoracic aortic aneurysm repair Social History [facility] current occupational status: retired Smoking Status: Never smoker alcohol intake: never substance use type: does not use ROS Review of Systems ROS Unobtainable: due to encephalopathy and due to mental condition Vital Signs Vital Signs Vital Signs: 02/02/25 19:42 02/02/25 19:49 02/02/25 20:14 Temperature 101.4 F H 101.4 F H Temperature Source Axillary Axillary Pulse Rate 93 92 Respiratory Rate 31 H 32 H Respiratory Effort Respiratory Pattern Blood Pressure 133/64 H 133/64 H Blood Pressure Mean 87 87 Pulse Ox 98 95 Oxygen Delivery Method Non-Rebreather Room Air Room Air Oxygen Flow Rate (L/min) 15 02/02/25 20:49 02/02/25 22:00 02/02/25 22:04 Temperature 101.4 F H Temperature Source Axillary Pulse Rate 88 85 Respiratory Rate 16 27 H Respiratory Effort Normal Respiratory Pattern Normal Blood Pressure 125/105 H 114/58 L Blood Pressure Mean 111 76 Pulse Ox 94 92 Oxygen Delivery Method Room Air Room Air Oxygen Flow Rate (L/min) Weight Weight: 263 lb 7.238 oz Body Mass Index (BMI) 35.7 Physical Exam Narrative Physical Examination: General: Awakens to stimuli, alert with questioning but notably fatigued and lethargic, will answer some question, no acute distress. Skin: Normal color, normal turgor, no icterus, no cyanosis except for occasionalstage ecchymoses, abrasion in addition to left foot lateral primarily dorsal distal erythema with a small wound on the lateral side but no drainage or foul odor noted. HEENT: AT/NC, EOMI, PERRLA, dry MM, no carotid bruits or JVD noted. Lungs: Diminished, greater bases, mildly decreased effort, mildly increased respiratory rate but no distress, no markedly appreciated rales, ronchi or wheezing. Heart: Regular rate and rhythm/paced; no gallop, rub audible. Abdomen: Soft, obese, NTTP, ND, hypoactive BS, no appreciated HSM. Extremities: No cyanosis, no clubbing, pedal to distal amador chronic edema. Neurological: Awakens to stimuli, alert with questioning but notably fatigued and lethargic, will answer some questions, no acute distress, cognitive functiondecreased from baseline with underlying cognitive impairment baseline, pupils equally reactive to light and accommodation, cranial nerves grossly normal, moving all 4 extremities, no focal deficits, strength severely globally decreased. Psychiatric: Affect appears flat, fatigued, no acute evidence of depressive or anxiety feelings but does have underlying history. Results Lab / Micro Data 02/02/25 19:56 02/02/25 19:56 Labs: Laboratory Results - last 24 hr 02/02/25 19:56: WBC 13.9 H, RBC 3.94 L, Hgb 10.9 L, Hct 33.5 L, MCV 85.0, MCH 27.7, MCHC 32.5, RDW Std Deviation 42.2, RDW Coeff of Nathaniel 13.6, Plt Count 203, MPV 9.4, Immature Gran % (Auto) 0.700, Neut % (Auto) 86.2 H, Lymph % (Auto) 3.6 L, Lea % (Auto) 8.7, Eos % (Auto) 0.6, Baso % (Auto) 0.2, Absolute Neuts (auto)12.0 H, Absolute Lymphs (auto) 0.50 L, Nucleated RBC % 0, PT 17.3 H, INR 1.4, APTT 34.0, Sodium 141, Potassium 3.8, Chloride 104, Carbon Dioxide 22.4, Anion Gap 14, BUN 18, Creatinine 1.04, Estim Creat Clear Calc 79.39, Est GFR (MDRD) Non-Af 74, BUN/Creatinine Ratio 17.0, Glucose 195 H, Lactic Acid 3.1 H*, Calcium8.7, Total Bilirubin 0.50, AST 15, ALT 10, Alkaline Phosphatase 115, Total Protein 5.8 L, Albumin 3.5, Globulin 2.3, Albumin/Globulin Ratio 1.5 02/02/25 21:25: Urine Color Yellow, Urine Clarity Clear, Urine pH 5.0, Ur Specific Wheeler 1.015, Urine Protein 30 H, Urine Glucose (UA) 250 H, Urine Ketones Negative, Urine Occult Blood 25 H, Urine Nitrite Negative, Urine Bilirubin Negative, Urine Urobilinogen Normal, Ur Leukocyte Esterase Negative, Urine RBC 5-10 SEEN, Urine WBC 5-10 SEEN, Ur Squamous Epith Cells 0-5 SEEN, Urine Bacteria 1+, Urine Mucus 0 SEEN Imaging Radiology Impression Brain CT 02/02/25 20:09 IMPRESSION: 1. No acute intracranial abnormality. 2. Mild-moderate volume loss and chronic microangiopathic changes. 3. Chronic paranasal sinus disease. Reading Location: [facility] Chest X-Ray 02/02/25 20:20 IMPRESSION: Pulmonary findings as above. Reading Location: [facility] Foot X-Ray 02/02/25 20:20 IMPRESSION: No acute osseous abnormality. Reading Location: [facility] Assessment & Plan Assessment/Plan (1) Pneumonia: PLAN: Plan The patient is a 79 y/o M w/ PMHx: BPH with obstructive pathology, CKD stage IIIa, AAA s/p repair, Hx COVID-19, Hx GI bleed, Valvular heart disease s/p AVR, HTN, HLD, VTE w/ Hx DVT/PE, Diabetes mellitus type II, Obesity, 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 #1. Acute Sepsis secondary to Concern for left midlung pneumonia and #2 (Fever,leukocytosis, mental status change, lactic acidosis): Given stable vital signs will admit to medical surgical floor, currently not requiring any oxygen but if necessary will certainly supplement with wean as tolerated room air, ATC DuoNeb therapy, PRN albuterol, maintain on IV Zosyn and Vancomycin given #2, HOB, IS parameters w/ pending sputum cultures and urine antigens. Bld cx x 2 obtained inthe ED. PT/OT/ST consultations as well as case management for discharge planning. #2. Left Foot Diabetic Wound/Ulcer: As noted above we will maintain on IV vancomycin and IV Zosyn, currently there is no discharge but if onset low threshold today wound culture and MRSA wound, plan repeat CBC in AM, will obtainESR and CRP upon admission as well as in a.m., will request podiatry evaluation per discussion with family, continue affected extremity elevation above heart when seated and in bed, monitor erythema outline with VS checks, wound RN consultation also requested. #3. Severe hypomagnesemia: Magnesium 0.9, 4 g IV initiated, will repeat level in AM. #4. History of VTE: Patient with history of DVT, PE, previously on Coumadin eventually discontinued given GI bleed, from current presentation noted transition to Eliquis, will cautiously continue. #5. Advanced dementia unclear specific type with unclear behavior disturbance history: Complicates presentation, will continue patient home memantine home regimen, PT/OT/case management consulted for discharge planning. #6. Valvular heart disease: Status post AV repair, most recent echocardiogram noted 02/12/2023 with EF 55 to 60%, mild MV insufficiency. #7. PAF: Will continue patient home metoprolol and Eliquis regimen. #8. History AAA: Status post repair 2006, will continue home Eliquis, statin therapy, hypertensive regimen as noted. #9. Diabetes mellitus type II: Hold oral home regimen, continue home insulin regimen, ADA diet, accu checks w/ ISS. #10. Chronic normocytic anemia/iron deficiency anemia: Admission hemoglobin 10.9, MCV 85, baseline hemoglobin more recently 11-12 range, will continue to trend, continue iron supplementation. #11. Hypertension: Continue home regimen including metoprolol, losartan with hold parameters as needed, PRN hydralazine. #12. Hyperlipidemia: Will continue patient on statin therapy. #13. History sick sinus syndrome, second-degree Mobitz type II heart block: Status post pacemaker placement, encourage continued outpatient evaluation and interrogation as previously arranged. #14. Anxiety and depression: Will continue patient home paroxetine regimen, encourage continued outpatient follow-up as previously arranged. #15. GERD with history of GI bleed: Will continue patient on PPI and sucralfatehome regimen. #16. BPH with obstructive pathology: Will continue patient home Flomax regimen,monitor for retention. Rodrigues initially placed in the ED, will de- escalate in a.m. #17. DVT prophylaxis: Will continue patient on Eliquis regimen. #18. CODE status: Patient HCPOA is his /son who is present and living will is currently in place. Discussed CODE status at length including difference between FULL code, DNR-CCA and DNR-CC status. Following discussions about the differences in these status, requested DNR-CCA, no intubation. Also discussed the concept of central line and pressor therapy and patient and spouse declined usage of these items. Advanced Care Planning Face to Face Time: 16 minutes. Charges/Coding Visit Charges Inpatient E&M: 28633 Init Hosp L3 Procedures Hospitalists Procedures: 05558 Advncd Care Plan 30 Min 02/03/25 0026 <Electronically signed by Karen Aly MD> Cosigner Signature (if applicable): CC: Dr. Karen Aly MD; Kuldip Cosby~ Signed [facility] Work Phone: [phone] History and physical note [facility] Medical Records Department [address] [place] [id number] H&P Exam - Hospitalist 02/02/25 2241 MR#: [id number] Acct: [id number] Name: RICHARD ROY Rep #:[id number] : 1945 79 From: Karen Aly MD PCP: Kuldip Cosby Status:ADM IN Location: [facility] [id number] HPI - General General Date of Admission: 02/02/25 Date of Service: 02/02/25 Chief Complaint: Altered mental status, cough, fever HPI Narrative The patient is a 79 y/o M w/ PMHx: BPH with obstructive pathology, CKD stage IIIa, AAA s/p repair, Hx COVID-19, Hx GI bleed, Valvular heart disease s/p AVR, HTN, HLD, VTE w/ Hx DVT/PE, Diabetes mellitus type II, Obesity, 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 Patient baseline is typically alert andoriented to personand place. In the ED upon arrival patient was noted to have mild erythema to the left dorsal foot as well in addition to a small chronic lateral foot ulceration/wound which reports has been followed by wound careat the facility. Workup in the ED included T101.4, heart rate 93, BP 133/64, respiratory rate 31, initially 98% on a 15 L nonrebreather with most recent repeat vitals T101.4 axillary, heart rate 85, BP 114/58, respiratory rate 27, 92% on room air, CBC with WC 13.9, hemoglobin 10.9,MCV 85, platelet 203 with left shift and lymphopenia, coags with PT 17.3, INR 1.4, PTT 34, CMP with BUN/creatinine 18/1.04, GFR 74, glucose 195, lactic acid 3.1, hepatic profile not marked appearing,urinalysis with specific gravity 1.015, protein 30, glucose 250, ketone negative, occult blood 25, nitrite negative, leukocyte esterase negative with urine RBCs 5-10, urine WBCs 5-10 with 1+ urine bacteria, chest x- ray with possible left midlung consolidative opacity concerning for pneumonia, CT ofthe brain with no acute intracranial findings, plain film of the left foot with no acute osseous findings. In the ED patient ministered 1 L normal saline, Tylenol 1000 mg p.o. x 1, Toradol 50 mg IV x1, IV vancomycin andIV Zosyn in addition to magnesium 4 g IV x 1. 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) Home Medications ?Medication ?Instructions ?Recorded ?Last Taken ?Type losartan 50 mg tablet 50 mg PO DAILY blood pressur e 03/24/18 06/01/24 History atorvastatin 40 mg tablet 40 mg PO QHS cholesterol 03/0105/31/24 History tamsulosin 0.4 mg capsule 0.4 mg PO QHS PROSTATE 03/0205/31/24 History cholecalciferol (vitamin D3) 1,250 1,250 mcg PO MO SUP PLEMENT 01/21/23 06/01/24 History mcg (50,000 unit) tablet metformin 1,000 mg tablet 1,000 mg PO BID DM 01/21/23 06/01/24 History insulin glargine 100 unit/mL (3 15 unit (0.15 mL) subc ut DAILY 01/26/23 06/01/24 Rx mL) subcutaneous pen (Lantus diabetes #15 mL Solostar U-100 Insulin) pantoprazole 40 mg tablet,delayed 40 mg PO BID #60 tab s 02/05/23 06/01/24 Rx release sucralfate 1 gram tablet 1 g PO 0700,1100,1600 #90 ta bs 02/05/23 06/01/24 Rx melatonin 3 mg tablet 3 mg PO QHS Insomnia 3 02/10/23 History memantine 10 mg tablet 10 mg PO BID #0 tabs 3 06/01/24 Rx bisacodyl 10 mg rectal suppository 10 mg WV DAILY PRN constipation 05/30/23 Unknown History loperamide 2 mg capsule 2 mg PO Q4H PRN loose stool 05/30/23 Unknown History (Anti-Diarrheal (loperamide)) acetaminophen 325 mg tablet 650 mg PO .q12hrs PAIN AND FEVER 10/07/23 06/01/24 History ferrous sulfate 325 mg (65 mg 325 mg PO DAILY 10/07/23 06/01/24 History iron) tablet apixaban 5 mg tablet (Eliquis) 5 mg PO BID #60 tabs 05/30/24 Rx paroxetine HCl 30 mg tablet 30 mg PO QDAY 04/07/24 History ipratropium 0.5 mg-albuterol 3 mg 3 ml inhalation Q4H PRN shortness 02/02/25 Unknown History (2.5 mg base)/3 mL nebulization of breath soln metoprolol succinate 25 mg capsule 25 mg PO DAILY 01/13 09/08 Unknown History sprinkle, ext. release 24 hr (Kapspargo Sprinkle) Allergy/AdvReac Type Severity Reaction Status Date / Time propofol AdvReac Other Verified 02/02/25 19:42 Family History Mother Heart disease Diabetes Hypertension Father Heart disease Surgical History History of AAA (abdominal aortic aneurysm) repair History of foot surgery Hx of abdominal surgery H/O aortic valve repair History of thoracic aortic aneurysm repair Social History housing[facility] current occupational status: retired Smoking Status: Never smoker alcohol intake: never substance use type: does not use ROS Review of Systems ROS Unobtainable: due to encephalopathy and due to mental condition Vital Signs Vital Signs Vital Signs: 02/02/25 19:42 02/02/25 19:49 02/02/25 20:14 Temperature 101.4 F H 101.4 F H Temperature Source Axillary Axillary Pulse Rate 93 92 Respiratory Rate 31 H 32 H Respiratory Effort Respiratory Pattern Blood Pressure 133/64 H 133/64 H Blood Pressure Mean 87 87 Pulse Ox 98 95 Oxygen Delivery Method Non-Rebreather Room Air Room Air Oxygen Flow Rate (L/min) 15 02/02/25 20:49 02/02/25 22:00 02/02/25 22:04 Temperature 101.4 F H Temperature Source Axillary Pulse Rate 88 85 Respiratory Rate 16 27 H Respiratory Effort Normal Respiratory Pattern Normal Blood Pressure 125/105 H 114/58 L Blood Pressure Mean 111 76 Pulse Ox 94 92 Oxygen Delivery Method Room Air Room Air Oxygen Flow Rate (L/min) Weight Weight: 263 lb 7.238 oz Body Mass Index (BMI) 35.7 Physical Exam Narrative Physical Examination: General: Awakens to stimuli, alert with questioning but notably fatigued and lethargic, will answersome question, no acute distress. Skin: Normal color, normal turgor, no icterus, no cyanosis except for occasionalstage ecchymoses, abrasion in addition to left foot lateral primarily dorsal distal erythema with a small wound on the lateral side but no drainage or foul odor noted. HEENT: AT/NC, EOMI, PERRLA, dry MM, no carotid bruits or JVD noted. Lungs: Diminished, greater bases, mildly decreased effort, mildly increased respiratory rate but nodistress, no markedly appreciated rales, ronchi or wheezing. Heart: Regular rate and rhythm/paced; no gallop, rub audible. Abdomen: Soft, obese, NTTP, ND, hypoactive BS, no appreciated HSM. Extremities: No cyanosis, no clubbing, pedal to distal amador chronic edema. Neurological: Awakens to stimuli, alert with questioning but notably fatigued and lethargic, will answer some questions, no acute distress, cognitive functiondecreased from baseline with underlying cognitive impairment baseline, pupils equally reactive to light and accommodation, cranial nerves grossly normal, moving all 4 extremities, no focal deficits, strength severely globally decreased. Psychiatric: Affect appears flat, fatigued, no acute evidence of depressive or anxiety feelings butdoes have underlying history. Results Lab / Micro Data 02/02/25 19:56 02/02/25 19:56 Labs: Laboratory Results - last 24 hr 02/02/25 19:56: WBC 13.9 H, RBC 3.94 L, Hgb 10.9 L, Hct 33.5 L, MCV 85.0, MCH 27.7, MCHC 32.5, RDW Std Deviation 42.2, RDW Coeff of Nathaniel 13.6, Plt Count 203, MPV 9.4, Immature Gran % (Auto) 0.700, Neut % (Auto) 86.2 H, Lymph % (Auto) 3.6 L, Lea % (Auto) 8.7, Eos % (Auto) 0.6, Baso % (Auto) 0.2, Absolute Neuts (auto)12.0 H, Absolute Lymphs (auto) 0.50 L, Nucleated RBC % 0, PT 17.3 H, INR 1.4, APTT34.0, Sodium 141, Potassium 3.8, Chloride 104, Carbon Dioxide 22.4, Anion Gap 14, BUN 18, Creatinine 1.04, Estim Creat Clear Calc 79.39, Est GFR (MDRD) Non-Af 74, BUN/Creatinine Ratio 17.0, Glucose 195 H, Lactic Acid 3.1 H*, Calcium8.7, Total Bilirubin 0.50, AST 15, ALT 10, Alkaline Phosphatase 115, Total Protein 5.8 L, Albumin 3.5, Globulin 2.3, Albumin/Globulin Ratio 1.5 02/02/25 21:25: Urine Color Yellow, Urine Clarity Clear, Urine pH 5.0, Ur Specific Wheeler 1.015, Urine Protein 30 H, Urine Glucose (UA) 250 H, Urine Ketones Negative, Urine Occult Blood 25 H, Urine Nitrite Negative, Urine Bilirubin Negative, Urine Urobilinogen Normal, Ur Leukocyte Esterase Negative, Urine RBC 5-10 SEEN, Urine WBC 5-10 SEEN, Ur Squamous Epith Cells 0-5 SEEN, Urine Bacteria 1+, Urine Mucus 0 SEEN Imaging Radiology Impression Brain CT 02/02/25 20:09 IMPRESSION: 1. No acute intracranial abnormality. 2. Mild-moderate volume loss and chronic microangiopathic changes. 3. Chronic paranasal sinus disease. Reading Location: [facility] Chest X-Ray 02/02/25 20:20 IMPRESSION: Pulmonary findings as above. Reading Location: [facility] Foot X-Ray 02/02/25 20:20 IMPRESSION: No acute osseous abnormality. Reading Location: [facility] Assessment & Plan Assessment/Plan (1) Pneumonia: PLAN: Plan The patient is a 79 y/o M w/ PMHx: BPH with obstructive pathology, CKD stage IIIa, AAA s/p repair, Hx COVID-19, Hx GI bleed, Valvular heart disease s/p AVR, HTN, HLD, VTE w/ Hx DVT/PE, Diabetes mellitus type II, Obesity, 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 #1. Acute Sepsis secondary to Concern for left midlung pneumonia and #2 (Fever,leukocytosis, mentalstatus change, lactic acidosis): Given stable vital signs will admit to medical surgical floor, currently not requiring any oxygen but if necessary will certainly supplement with wean as tolerated room air, ATC DuoNeb therapy, PRN albuterol, maintain on IV Zosyn and Vancomycin given #2, HOB, IS parameters w/ pending sputum cultures and urine antigens. Bld cx x 2 obtained inthe ED. PT/OT/ST consultations as well as case management for discharge planning. #2. Left Foot Diabetic Wound/Ulcer: As noted above we will maintain on IV vancomycin and IV Zosyn, currently there is no discharge but if onset low threshold today wound culture and MRSA wound, plan repeat CBC in AM, will obtainESR and CRP upon admission as well as in a.m., will request podiatry adry mac per discussion with family, continue affected extremity elevation above heart when seated and in bed, monitor erythema outline with VS checks, wound RN consultation also requested. #3. Severe hypomagnesemia: Magnesium 0.9, 4 g IV initiated, will repeat level in AM. #4. History of VTE: Patient with history of DVT, PE, previously on Coumadin eventually discontinuedgiven GI bleed, from current presentation noted transition to Eliquis, will cautiously continue. #5. Advanced dementia unclear specific type with unclear behavior disturbance history: Complicates presentation, will continue patient home memantine home regimen, PT/OT/case management consulted fordischarge planning. #6. Valvular heart disease: Status post AV repair, most recent echocardiogram noted 02/12/2023 with EF 55 to 60%, mild MV insufficiency. #7. PAF: Will continue patient home metoprolol and Eliquis regimen. #8. History AAA: Status post repair 2006, will continue home Eliquis, statin therapy, hypertensive regimen as noted. #9. Diabetes mellitus type II: Hold oral home regimen, continue home insulin regimen, ADA diet, accu checks w/ ISS. #10. Chronic normocytic anemia/iron deficiency anemia: Admission hemoglobin 10.9, MCV 85, baseline hemoglobin more recently 11-12 range, will continue to trend, continue iron supplementation. #11. Hypertension: Continue home regimen including metoprolol, losartan with hold parameters as needed, PRN hydralazine. #12. Hyperlipidemia: Will continue patient on statin therapy. #13. History sick sinus syndrome, second-degree Mobitz type II heart block: Status post pacemaker placement, encourage continued outpatient evaluation and interrogation as previously arranged. #14. Anxiety and depression: Will continue patient home paroxetine regimen, encourage continued outpatient follow-up as previously arranged. #15. GERD with history of GI bleed: Will continue patient on PPI and sucralfatehome regimen. #16. BPH with obstructive pathology: Will continue patient home Flomax regimen,monitor for retention. Rodrigues initially placed in the ED, will de- escalate in a.m. #17. DVT prophylaxis: Will continue patient on Eliquis regimen. #18. CODE status: Patient HCPOA is his /son who is present and living will is currently in place. Discussed CODE status at length including difference between FULL code, DNR-CCA and DNR-CC status. Following discussions about the differences in these status, requested DNR-CCA, no intubation. Also discussed the concept of central line and pressor therapy and patient and spouse declined usage ofthese items. Advanced Care Planning Face to Face Time: 16 minutes. Charges/Coding Visit Charges Inpatient E&M: 89845 Init Hosp L3 Procedures Hospitalists Procedures: 53080 Advncd Care Plan 30 Min 02/03/25 0026 Cosigner Signature (if applicable): CC: Dr. 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) Home Medications ?Medication ?Instructions ?Recorded ?Last Taken ?Type losartan 50 mg tablet 50 mg PO DAILY blood pressur e 03/24/18 06/01/24 History atorvastatin 40 mg tablet 40 mg PO QHS cholesterol 03/0105/31/24 History tamsulosin 0.4 mg capsule 0.4 mg PO QHS PROSTATE 03/0205/31/24 History cholecalciferol (vitamin D3) 1,250 1,250 mcg PO MO SUP PLEMENT 01/21/23 06/01/24 History mcg (50,000 unit) tablet metformin 1,000 mg tablet 1,000 mg PO BID DM 01/21/23 06/01/24 History insulin glargine 100 unit/mL (3 15 unit (0.15 mL) subc ut DAILY 01/26/23 06/01/24 Rx mL) subcutaneous pen (Lantus diabetes #15 mL Solostar U-100 Insulin) pantoprazole 40 mg tablet,delayed 40 mg PO BID #60 tab s 02/05/23 06/01/24 Rx release sucralfate 1 gram tablet 1 g PO 0700,1100,1600 #90 ta bs 02/05/23 06/01/24 Rx melatonin 3 mg tablet 3 mg PO QHS Insomnia 3 02/10/23 History memantine 10 mg tablet 10 mg PO BID #0 tabs 3 06/01/24 Rx metoprolol succinate 25 mg 25 mg PO DAILY blood pressu re #30 03/27/23 05/31/24 Rx tablet,extended release 24 hr tabs bisacodyl 10 mg rectal suppository 10 mg WV DAILY PRN constipation 05/30/23 Unknown History loperamide 2 mg capsule 2 mg PO Q4H PRN loose stool 05/30/23 Unknown History (Anti-Diarrheal (loperamide)) acetaminophen 325 mg tablet 650 mg PO .q12hrs PAIN AND FEVER 10/07/23 06/01/24 History ferrous sulfate 325 mg (65 mg 325 mg PO DAILY 10/07/23 06/01/24 History iron) tablet apixaban 5 mg tablet (Eliquis) 5 mg PO BID #60 tabs 05/30/24 Rx paroxetine HCl 30 mg tablet 30 mg PO QDAY 04/07/24 History Allergy/AdvReac Type Severity Reaction Status Date / Time propofol AdvReac Other Verified 02/02/25 19:42 Family History Mother Heart disease Diabetes Hypertension Father Heart disease Surgical History History of AAA (abdominal aortic aneurysm) repair History of foot surgery Hx of abdominal surgery H/O aortic valve repair History of thoracic aortic aneurysm repair Social History housing: [facility] current occupational status: retired Smoking Status: Never smoker alcohol intake: never substance use type: does not use EXAM Physical Exam Const Vital Signs: 02/02/25 19:42 02/02/25 19:49 02/02/25 20:14 Temperature 101.4 F H 101.4 F H Temperature Source Axillary Axillary Pulse Rate 93 92 Respiratory Rate 31 H 32 H Respiratory Effort Respiratory Pattern Blood Pressure 133/64 H 133/64 H Blood Pressure Mean 87 87 Pulse Ox 98 95 Oxygen Delivery Method Non-Rebreather Room Air Room Air Oxygen Flow Rate (L/min) 15 02/02/25 20:49 02/02/25 22:00 02/02/25 22:04 Temperature 101.4 F H Temperature Source Axillary Pulse Rate 88 85 Respiratory Rate 16 27 H Respiratory Effort Normal Respiratory Pattern Normal Blood Pressure 125/105 H 114/58 L Blood Pressure Mean 111 76 Pulse Ox 94 92 Oxygen Delivery Method Room Air Room Air Oxygen Flow Rate (L/min) MDM MDM MDM Narrative Medical decision making narrative: HISTORY OF PRESENT ILLNESS: Chief complaint: Cough, lethargy, altered mental status and fever 79-year-old male history of type 2 diabetes, hyperlipidemia, PE, A-fib on Eliquis, secondary heart block status post pacemaker presents with recent cough,lethargy and fever. Also noted altered mentalstatus. History is provided by and son. notes patient was behaving normally yesterday at his nursingfacility. No she was called because he has been more lethargic. She states he thought he may have had pneumonia. The patient cannot provide a lot of history because he is altered. She noteshis baseline mental status is typically alert and oriented to person and place but not necessarily to time REVIEW OF SYSTEMS: Unable to obtain a reliable review of system secondary to altered mental status PHYSICAL EXAM: Nursing triage notes reviewed, Vital signs reviewed Constitutional: please see mdm HENT: MMM Eyes: Pupils equal round and reactive to light, Extraocular muscles intact Neck: No stridor, no JVD, full neck ROM Lungs: Clear to auscultation, No wheezing or rales. No increased work of breathing, no conversational dyspnea, no accessory muscle use, no nasal flaring. No respiratory distress noted Heart: Regular rate and rhythm, No murmurs, No rubs and No gallops, 2+ distal pulses (radial, femoral, posterior tibial) in all extremities Abdomen: Soft, there is no tenderness, rigidity, rebound or guarding, no obviousperitoneal signs, no palpable pulsatile abdominal masses, no auscultated abdominal bruit : No CVAT Extremities: No edema Neuro: Sleepy, drowsy, responsive to voice. Oriented to person but not place ortime. Moves all 4 extremities has chronic neuropathy bilateral lower extremities. Has sensation intact in bilateral upper extremities. No obvious cranial nerve deficits. Skin: No rash or lesions noted MEDICAL DECISION MAKING: Chief Complaint: please see HPI External records reviewed: No recent hospitalizations, reviewed medications. [facility] which reported no obvious focal infiltrate Factors affecting care: n as per HPI Social determinants of health: [facility] resident History obtained from others: EMS Consults: Internal medicine MDM Narrative: The patient was initially tachypneic with a respiratory rate of 31, febrile witha temperature 101.4initially on nonrebreather per triage vitals. On my evaluation Given initial SIRS criteria and obvious infectious source of the left foot concerning for infected diabetic foot ulcer versus osteomyelitis. Sepsis alert called. Sepsis order set was used. Initial 30cc/kg bolus was given. Vanco/Zosyn ordered per sepsis order set. I considered the following differential diagnosis: Pneumonia, UTI, osteomyelitis, cellulitis. I obtained a broad lab and imaging workup to further determine if the patient was suffering from a life-threatening etiology. Patient was initially given broad-spectrum antibiotics and received ideal body weight 30 cc/kg bolus ALL IMAGES (IF OBTAINED) HAVE BEEN PERSONALLY REVIEWED AND INTERPRETED BY MYSELF. CBC with leukocytosis, mild anemia that is baseline, no thrombocytopenia No coagulopathy noted BMP without significant electrolyte abnormalities, no acute kidney Initial lactate elevated consistent with endorgan hypoperfusion LFTs showed no signs of obstructive Urinalysis shows no evidence of urinary inflammation suggestive of UTI Chest x-ray was read reviewed personally myself show no evidence of obvious pneumonia. Radiologist noted possible pneumonia in the left midlung. I do not appreciate this however the patient did receive broad-spectrum antibiotics X-ray of the patient's left foot was read reviewed personally by myself showed no evidence of obvious osteomyelitis The synthesis of the patient's history, physical exam, labs images suggest likely sepsis from infected diabetic foot ulcer of the left foot. Patient did receive broad-spectrum antibiotics and will beadmitted to the hospital. Upon re-evaluation patient's volume status and organ perfusion were appropriate. No indication for pressors at this time The patient and/or family, caregivers express understanding. The patient and/orfamily, caregivers agrees with the plan. Shared decision making: I will have a discussion with the patient and or visitors regarding risk/benefits of further testing or admission. They will be made aware of of the risk/benefits inherent in this decision they will be given the opportunity to voice understanding. Total critical care time today provided was at least 0 minutes. This excludes separately billable procedures. Critical care time (if documented) is secondary to the patient having high probability ofclinically significant/life threatening deterioration in the patient's condition which required my urgent intervention. Impression: 1. Sepsis 2. Infected diabetic foot ulcer 3. Leukocytosis 4. Elevated lactic acid Dispo: Discharge This note was generated with [employer] dictation software. It may contain incorrectwords, spelling, and punctuation that were not noted in review of the chart prior to signing. Lab Data Labs: Laboratory Results - last 24 hr 02/02/25 02/02/25 19:56 21:25 WBC 13.9 H RBC 3.94 L Hgb 10.9 L Hct 33.5 L MCV 85.0 MCH 27.7 MCHC 32.5 RDW Std Deviation 42.2 RDW Coeff of Nathaniel 13.6 Plt Count 203 MPV 9.4 Immature Gran % (Auto) 0.700 Neut % (Auto) 86.2 H Lymph % (Auto) 3.6 L Lea % (Auto) 8.7 Eos % (Auto) 0.6 Baso % (Auto) 0.2 Absolute Neuts (auto) 12.0 H Absolute Lymphs (auto) 0.50 L Nucleated RBC % 0 PT 17.3 H INR 1.4 APTT 34.0 Sodium 141 Potassium 3.8 Chloride 104 Carbon Dioxide 22.4 Anion Gap 14 BUN 18 Creatinine 1.04 Estim Creat Clear Calc 79.39 Est GFR (MDRD) Non-Af 74 BUN/Creatinine Ratio 17.0 Glucose 195 H Lactic Acid 3.1 H* Calcium 8.7 Total Bilirubin 0.50 AST 15 ALT 10 Alkaline Phosphatase 115 Total Protein 5.8 L Albumin 3.5 Globulin 2.3 Albumin/Globulin Ratio 1.5 Urine Color Yellow Urine Clarity Clear Urine pH 5.0 Ur Specific Wheeler 1.015 Urine Protein 30 H Urine Glucose (UA) 250 H Urine Ketones Negative Urine Occult Blood 25 H Urine Nitrite Negative Urine Bilirubin Negative Urine Urobilinogen Normal Ur Leukocyte Esterase Negative Urine RBC 5-10 SEEN Urine WBC 5-10 SEEN Ur Squamous Epith Cells 0-5 SEEN Urine Bacteria 1+ Urine Mucus 0 SEEN Radiography Diagnostic Testing: Clinical Impression(s) from Imaging Studies Brain CT 02/02/25 20:09 IMPRESSION: 1. No acute intracranial abnormality. 2. Mild-moderate volume loss and chronic microangiopathic changes. 3. Chronic paranasal sinus disease. Reading Location: [facility] Chest X-Ray 02/02/25 20:20 IMPRESSION: Pulmonary findings as above. Reading Location: [facility] Foot X-Ray 02/02/25 20:20 IMPRESSION: No acute osseous abnormality. Reading Location: [facility] Discharge Plan Triage Chief Complaint: Fever ED Provider: Nicholas Galarza Dx/Rx/DC Orders Prescriptions: No Action metoprolol succinate 25 mg tablet extended release 24 hr 25 mg PO DAILY Qty: 30 0RF ferrous sulfate 325 mg (65 mg iron) tablet 325 mg PO DAILY paroxetine HCl 30 mg tablet 30 mg PO QDAY losartan 50 MG tablet 50 mg PO DAILY atorvastatin 40 MG tablet 40 mg PO QHS tamsulosin 0.4 mg capsule 0.4 mg PO QHS Patient Comments: TAKE 1 CAPSULE BY MOUTH EVERYDAY AT BEDTIME sucralfate 1 gram Tablet 1 g PO 0700,1100,1600 Qty: 90 2RF pantoprazole 40 mg tablet,delayed release (DR/EC) 40 mg PO BID Qty: 60 2RF melatonin 3 mg Tablet 3 mg PO QHS Patient Comments: PRN PER HALFWAY MAR. memantine 10 mg Tablet 10 mg PO BID Qty: 0 0RF acetaminophen 325 mg tablet 650 mg PO .q12hrs Patient Comments: PRN PER HALFWAY MAR bisacodyl 10 mg suppository 10 mg WV DAILY PRN (Reason: constipation) loperamide [Anti-Diarrheal (loperamide)] 2 mg capsule 2 mg PO Q4H PRN (Reason: loose stool) Rx Instructions: administer after each loose stool until symptoms controlled; do not exceed 8 mg per 24 hrs cholecalciferol (vitamin D3) 1,250 mcg (50,000 unit) tablet 1,250 mcg PO MO metformin 1,000 mg tablet 1,000 mg PO BID insulin glargine [Lantus Solostar U-100 Insulin] 100 UNITS/ML insulin pen 15 unit subcut DAILY Qty: 15 0RF Eliquis 5 mg tablet 5 mg PO BID Qty: 60 11RF Primary Care Provider: Kuldip Cosby Referrals: Luis Caldera MD [Non-Staff] - Print Language: Jamaican What to do if you have Problems For any increased pain, shortness of breath, bleeding, nausea or vomiting, chestpain, or any unexpected problems, contact your Primary Care Provider. Call [facility] ([phone]) or report tothe closest Emergency Room. Call 911 if necessary. 02/02/252244 Cosigner Signature (if applicable): CC: Kuldip Cosby ~ Signed [facility]07-22-2025 Radiology Diagnostic study note [facility] Imaging Services [address] [place], [place] [address] Foot 2 Views MR#: [id number] Acct: [id number] Name: RICHARD ROY Rep #: [id number] : 1945 M 79 From: Pascual Patino MD PCP: Kuldip Cosby Status: REG ER Study:Foot 2 Views Date of Exam: 5 Exam# [id number] Ordering Dr: Ronak Galarza DO PROCEDURE: FOOT 2 VIEWS 02/02/2025 REASON FOR EXAM: REDNESS, LATERAL 5TH DIGIT ULCER TECHNIQUE: FOOT 2 VIEWS COMPARISON: None. FINDINGS: No evidence of acute fracture or dislocation. The joint spaces are maintained. Heavy atherosclerosis. RAD/Foot 2 Views IMPRESSION: No acute osseous abnormality. Reading Location: [facility] CC: Dr. Nicholas Galarza DO; Kuldip Cosby ~ Hand Stamper: Signed [facility]07-22-2025 Radiology Diagnostic study note [facility] Imaging Services [address] [place] [address] Chest 1 View (Portable) MR#: [id number] Acct: [id number] Name: RICHARD ROY Rep #: [id number] : 1945 M 79 From: Pascual Patino MD PCP: Kuldip Cosby Status: REG ER Study:Chest 1 View (Portable) Date of Exam: 02/02/25 Exam# [id number] Ordering Dr: Ronak Galarza DO PROCEDURE: CHEST 1 VIEW (PORTABLE) 02/02/2025 REASON FOR EXAM: ALTERED MENTAL STATUS TECHNIQUE: Frontal view of the chest. COMPARISON: 02/10/2023. FINDINGS: The heart is enlarged. Prior sternotomy. Left chest pacemaker. Left midlung consolidative opacity which may represent pneumonia (limited assessment due to rotation). RAD/Chest 1 View (Portable) IMPRESSION: Pulmonary findings as above. Reading Location: [facility] CC: Dr. Nicholas Galarza DO; Kuldip Cosby ~ Hand Stamper: Signed [facility]07-22-2025 Radiology Diagnostic study note [facility] Imaging Services [address] [place], [place] [address] Brain/Head without Contrast MR#: [id number] Acct: [id number] Name: RICHARD ROY Rep #: [id number] : 1945 M 79 From: Philip Johnson MD PCP: Kuldip Cosby Status: REG ER Study:Brain/Head without Contrast Date of Exa m: 02/02/25 Exam# [id number] Ordering Dr: Ronka Galarza DO PROCEDURE: BRAIN/HEAD WITHOUT CONTRAST 02/02/2025 REASON FOR EXAM: AMS TECHNIQUE: BRAIN/HEAD WITHOUT CONTRAST Coronal and Sagittal reconstruction series were provided. One or more dose reduction techniques were used (e.g., Automated exposure control, adjustment of the mA and/or kV according to patient size, use of iterative reconstruction technique. RADIATION DOSE SUMMARY: CTDlvol: 44.99 mGy DLP: 880.47 mGycm COMPARISON: 01/21/2023 FINDINGS: No acute intracranial hemorrhage, extra-axial collection, mass effect or evidence of acute infarct. Mild-moderate generalized brain parenchymal volume loss, and chronic microangiopathic changes throughout the supratentorial white matter. 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 Atherosclerotic vascular calcifications. Unremarkable orbits. Intact skull base and calvarium. No mastoid effusions. Chronic paranasal sinus disease with peripheral osseous remodeling/osteitis, peripheral mucosal thickening in the bilateral maxillary sinuses, and obliterative right frontal sinusitis completely opacified with mineralization. CT/Brain/Head without Contrast IMPRESSION: 1. No acute intracranial abnormality. 2. Mild-moderate volume loss and chronic microangiopathic changes. 3. Chronic paranasal sinus disease. Reading Location: [facility] CC: Dr. Nicholas Galarza DO; Kuldip Cosby ~ Hand Stamper: Signed [facility]03-31-2025 Evaluation note* Diagnosis Onset Date Resolution Status Admit Date Presence of cardiac pacemaker acute October 12, 2024 1:09pm Atrial fibrillation chronic October 12, 2024 1:09pm Diabetes chronic October 12 1:09pm HLD (hyperlipidemia) chronic [place] [facility] 2024 1:09pm HTN (hypertension) chronic October 12, 2024 1:09pm Sick sinus syndrome chronic October 12, 2024 1:09pm [facility] Work Phone: 1(962) 777-811303-31-2025 Evaluation note* Diagnosis Onset Date Resolution Status Admit Date Presence of cardiac pacemaker acute October 12, 2024 1:09pm Atrial fibrillation chronic October 12, 2024 1:09pm Diabetes chronic October 12 1:09pm HLD (hyperlipidemia) chronic [place] [facility] 2024 1:09pm HTN (hypertension) chronic October 12, 2024 1:09pm Sick sinus syndrome chronic October 12, 2024 1:09pm Pneumonia acute February 02 11:12pm [facility] Work Phone: 1(812) 932-919811-20-2023 Procedure [facility] 02-13-2023 Consult note [facility] February 13, 2023 2:50pm Note Date/Time February 13, 2023 2:[address] [facility] Medical Records Department [address] [place] [id number] Counseling Note - Pharmacy 02/13/23 1449 MR#: [id number] Acct: [id number] Name: RICHARD ROY Rep #:[id number] : 1945 77 From: Haile Bautista PCP: Dr. Luis Caldera MD Status :ADM IN Y Location: [id number] Service has performed discharge [...] PO DAILY BP 30 days #30 tabs 12/28/22 cholecalciferol (vitamin D3) 1,250 mcg (50,000 unit) [...] signed by Haile huang> Date _ Haile Bautista Cosigner Signature (if applicable): Date CC: ~ Signed [facility] Work Phone: 1(470) 636-202508-02-2023 Discharge summary Author Gabriel Giraldo [facility] February 13, 2023 2:24pm Note Date/Time February 13, 2023 2:1 5pm [facility] Medical Records Department [address] [place] [address] Transfer to [facility] MR#: [id number] Acct: [id number] Name: RICHARD ROY Rep #:[id number] : 1945 77 From: Gabriel Giraldo DO PCP: Dr. Luis Caldera MD Status :ADM IN Certification of patient admission REQUIRED AT TIME OF ADMISSION. I CERTIFY THAT POST-HOSPITAL ECF SERVICES ARE REQUIRED TO BE GIVEN ON AN IN-PATIENT BASIS BECAUSE OF THE ABOVE NAMED PATIENT'S NEED FOR HALFWAY CARE ON A CONTINUING BASIS FOR THE CONDITION(S) FOR WHICH HE/SHE WAS RECEIVING IN-PATIENT HOSPITAL SERVICES PRIOR TO HIS/HER TRANSFER TO THE [facility]. 02/13/23 1424<Electronically signed by Gabriel Giraldo DO> Diet Diet Order/Speech Therapy: 02/12/23 14:46 Diet: Cardiac: Calorie-Controlled Food consistency:: Regular Liquid Consistency:: Regular/Thin Dietary Modifications:: Consistent Carbohydrate Type of Dietary Supplement:: Glucerna Shake Is pt able to select menu?: No Diet Comments: 120mL glucerna shake TID w/ meals How many daily calories?: 1999 calorie Routine Orders/Code Status Routine Lab Work: [...] mg PO QHS Patient Comments: PRN PER HALFWAY MAR. acetaminophen 325 mg Tablet 650 mg PO TID Patient Comments: PRN PER HALFWAY MAR cephalexin 500 mg capsule 500 mg [...] in before D/C Order can be placed): [facility] Facility 02/13/23 1424 <Electronically signed by Gabriel Giraldo DO> Cosigner Signature (if applicable): CC: Dr. Luis Caldera MD; Dr. Smith Leija MD ~ [facility] Work Phone: 1(551) 796-486408-01-2023 Progress note Author Gabriel [facility] February 12, 2023 4:48pm Note Date/Time February 12, 2023 4:4 8pm [facility] Medical Records Department [address] [place] [id number] Progress Note - Hospitalist 02/12/23 1639 MR#: [id number] Acct: [id number] Name: RICHARD ROY Rep #:[id number] : 1945 77 From: Gabriel Giraldo DO PCP: Dr. Luis Caldera MD Status :ADM IN Location: [place] [id number] Reason for Visit Reason for Visit: Diagnoses [...] 76.5 H, Lymph % (Auto) 8.1 L, Lea % (Auto) 12.5 H, Eos % (Auto) [...] 35 minutes Charges/Coding Visit Charges Inpatient E&M: 92170 Subs Hosp L2 02/12/23 1648 <Electronically signed by Gabriel Giraldo DO> Cosigner Signature (if applicable): CC: ~ Signed [facility] Work Phone: 1(506) 829-647708-01-2023 Consult note Author Smith Leija [facility] February 12, 2023 2:16pm Note Date/Time February 12, 2023 2:1 6pm [facility] Medical Records Department [address] [place] [address] Consultation - Infectious Dx 02/12/23 1412 MR#: [id number] Acct: [id number] Name: RICHARD ROY Rep #:[id number] : 1945 77 From: Smith huang MD PCP: Dr. Luis Caldera MD Status :ADM IN [id number] & Plan Assessment/Plan (1) Bacteremia: PLAN: [...] keflex in ED 02/10, sent back to [facility]. Had low grade fever, returned here with (+) ucx and (+)bcx with GNR. Admitted on ceftriaxone, feeling ok today. No complaints, deniesfever, chest pain, abd pain, dysuria, n/v/d. Full ROS performed and neg except as noted above. [facility] Medical History AAA (abdominal aortic aneurysm) Amputation [...] Hx of abdominal surgery Social History housing[facility] current occupational status: retired Smoking Status: Never [...] 76.5 H, Lymph % (Auto) 8.1 L, Lea % (Auto) 12.5 H, Eos % (Auto) 0.8, Baso % (Auto) 0.1, Absolute Neuts(auto) 5.7, Absolute Lymphs (auto) 0.61 L, Nucleated RBC % 0, PT 19.3 H, INR 1.6 Rhythm Strip Rhythm Strip: paced Rate: 95 Ectopy: None 02/12/23 1416 <Electronically signed by Smith Leija MD> Cosigner Signature (if applicable): CC: Dr. Luis Caldera MD; Dr. Smith Leija MD~ Signed [facility] Work Phone: [phone]) 584-161508-01-2023 Discharge summary Author Dandy Sauer [facility] February 12, 2023 2:03am Note Date/Time February 11, 2023 5:05 pm [facility] Medical Records Department [address] [place] [id number] Emergency Department Summary 02/11/23 MR#: [id number] Acct: [id number] Name: RICHARD ROY Rep #:[id number] : 1945 77 From: Dandy Sauer MD PCP: Dr. Luis Caldera MD Status :ADM IN Location: [address] HPI History of Present Illness Chief Complaint: [...] mostly the lethargy is the issue acutely. [facility] Medical History (Updated 02/11/23 @ 19:31 by [...] Last Taken 02/10/23] warfarin 5 mg tablet () 7.5 mg PO SUTUWETHFRSA anticoagulant 05/22/18 [History [...] Hx of abdominal surgery Social History housing[facility] current occupational status: retired Smoking Status: Never [...] infection), Bacteremia Disposition Disposition: Acute Care Hospital [facility] Discharge Date/Time: 02/11/23 19:06 What to do if you have Problems For any increased pain, shortness of breath, bleeding, nausea or vomiting, chestpain, or any unexpected problems, contact your Primary Care Provider. Call [facility] ([phone]) or report to the closest Emergency Room. Call 911 if necessary. 02/12/23 0203 <Electronically signed by Dandy Sauer MD> Cosigner Signature (if applicable): CC: Dr. Luis Caldera MD ~ Signed [facility] Work Phone: [phone]) [phone] History and physical note Author Jesus Burnham [facility] February 11, 2023 7:38pm Note Date/Time February 11, 2023 7:39 pm [facility] Medical Records Department [address] [place] [address] History & Physical Exam 02/11/231928 MR#: [id number] Acct: [id number] Name: RICHARD ROY Rep #:[id number] : 1945 77 From: Jesus Burnham MD PCP: Dr. Luis Caldera MD Status :ADM IN Location: NM3 NE281-5 HPI - General General Date of Admission: [...] tract infection [facility], however, today the patient has become more obtunded and sleeping excessively. Lactic acid elevation is noted and patient is on pacemaker. He denies any chest pain, shortness of breath and/or fevers orchills however is not a great historian at present time. Patient's is present at bedside and apparently the son is the DURABLE POWER OF OR MANAGER for healthcare and has orders signed for DNR CCA with no intubation. He will be admitted to the general medical floor placed on Rocephin, consult for infectiousdisease due to new implanted pacemaker. [facility] Medical History Amputation of right great toe [...] Hx of abdominal surgery Social History housing: [facility] current occupational status: retired Smoking Status: Never [...] on Coumadin Charges/Coding Visit Charges Inpatient E&M: 10257 Init Hosp L2 02/11/231937 <Electronically signed by Jesus Burnham MD> Cosigner Signature (if applicable): CC: Dr. Luis Caldera MD; Dr. Jesus Burnham MD~ Signed [facility] Work Phone: [phone]) [phone] Miscellaneous Notes* Telephone Encounter - Tania Heller LPN - 01/28/2023 2:22 PM EDT Miya with [facility] calls to report pt was admitted to their facility over the weekend. Miya is requesting immunization record be faxed to: [phone]. Immunization record faxed as requested. Tania Heller LPN documented [facility] [place] Discharge summary Author Ryan Tinoco [facility] January 26, 2023 12:56pm Note Date/Time January 26, 2023 12:4 6pm [facility] Medical Records Department [address] [place] [address] Discharge Summary 01/26/23 1157 MR#: [id number] Acct: [id number] Name: RICHARD ROY Rep #:[id number] : 1945 77 From: Ryan Delgado PCP: Dr. Luis Caldera MD Status :ADM IN [facility] Providers Date of Admission: 01/21/23 Date of Discharge: 01/26/23 Primary Care Physician: Dr. Luis Caldera MD Consultations 01/21/23 11:52 Consult: Gastroenterology Routine Consulting Provider: [facility] Reason for Consult: Upper GI BLeed EMERGENT Consult: No Notified: Yes Date Notified: 01/21/23 Time Notified: [...] is a 77-year-old gentleman being admitted from [facility] for multiple episodes of syncope and [...] the . His medical care is under [facility]. 01/22: Hemoglobin dropped to 8.9. Patient [...] there was 2 dropped heartbeat in EKG. cracker off shows heart rate slowed down to 48 to 60/min. EKG in the morning about 6 AM today shows sinus rhythm with second- degree Mobitz type II block, RBBB, LAFB bifascicular block. Patient has history of bifascicular block. I talked to the patient's and informed her about the update. Patient has history of ascending aortic aneurysmand had that repaired along with aortic valve in [facility]. His workers' compensation claims examiner is Dr. Huston in [facility]. I think this is most probably due to start of the octreotide drip as patient was in sinus normal rhythm at time ofadmission. Octreotide discontinued. Clinic Administrator consulted. 2D echo ordered. 01/23: Echo states EF 55 to 60%, normal LV systolic function. Trivial MR. Mild diffuse aortic valve calcification. Normal left atrium. Plan: Clinic Administrator will talk to Dr. Chandra regarding assessment for pacemaker 01/24: Patient has hypernatremia and hyperchloremia. IV fluid D5W started. Patient is still has AV block, P waves but rhythm is irregular. Twelve-lead EKGordered. Discussed with the workers' compensation claims examiner. Dr. Ling will talk to Dr. Chandra. 01/25: For now plan is to monitor. No plan for pacemaker as per the workers' compensation claims examiner. cracker off shows irregular heartbeat , Mobitz type II. [...] or advanced directive. His is power of metal container maker for health. After discussion of benefits/risks procedures [...] Heart rate in 50s.. Discussed with the workers' compensation claims examiner. No chest pain or tightness. Physical exam [...] 78.4 H, Lymph % (Auto) 8.1 L, Lea % (Auto) 9.6, Eos % (Auto) 1.6, [...] Qty: 0 0RF Patient Comments: PRN PER HALFWAY MAR melatonin 3 mg Tablet 3 mg PO QHS PRN PRN (Reason: Insomnia) Qty: 1 0RF Patient Comments: PRN PER HALFWAY MAR. duloxetine [Cymbalta] 60 mg capsule,delayed release(DR/EC) [...] AND 10 MG DAILY AT BEDTIME. PER MAR 5 MG LAST DOSE IS ON 01/28/23. [...] in before D/C Order can be placed): [facility] Facility Charges/Coding Visit Charges Inpatient E&M: 59382 Disch Hosp >30min 01/26/23 1256 <Electronically signed by Ryan Tinoco MD> Cosigner Signature (if applicable): CC: Dr. Luis Caldera MD; Dr. Ryan Tinoco MD~ Signed [facility] Work Phone: [phone]) [phone] Discharge summary Author Ryan Tinoco [facility] January 26, 2023 11:57am Note Date/Time January 26, 2023 7:59 am [facility] Medical Records Department [address] [place] [address] Transfer to Extended [facility] MR#: [id number] Acct: [id number] Name: RICHARD ROY Rep #:[id number] : 1945 77 From: Ryan Delgado PCP: Dr. Luis Caldera MD Status :ADM IN Certification of patient admission REQUIRED AT TIME OF ADMISSION. I CERTIFY THAT POST-HOSPITAL ECF SERVICES ARE REQUIRED TO BE GIVEN ON AN IN-PATIENT BASIS BECAUSE OF THE ABOVE NAMED PATIENT'S NEED FOR HALFWAY CARE ON A CONTINUING BASIS FOR THE CONDITION(S) FOR WHICH HE/SHE WAS RECEIVING IN-PATIENT HOSPITAL SERVICES PRIOR TO HIS/HER TRANSFER TO [facility]. 01/26/23 1157<Electronically signed by Ryan Tinoco [...] is a 77-year-old gentleman being admitted from [facility] for multiple episodes of syncope and [...] the . His medical care is under [facility]. 01/22: Hemoglobin dropped to 8.9. Patient [...] there was 2 dropped heartbeat in EKG. cracker off shows heart rate slowed down to 48 to 60/min. EKG in the morning about 6 AM today shows sinus rhythm with second- degree Mobitz type II block, RBBB, LAFB bifascicular block. Patient has history of bifascicular block. I talked to the patient's and informed her about the update. Patient has history of ascending aortic aneurysmand had that repaired along with aortic valve in [facility]. His workers' compensation claims examiner is Dr. Huston in [facility]. I think this is most probably due to start of the octreotide drip as patient was in sinus normal rhythm at time ofadmission. Octreotide discontinued. Clinic Administrator consulted. 2D echo ordered. 01/23: Echo states EF 55 to 60%, normal LV systolic function. Trivial MR. Mild diffuse aortic valve calcification. Normal left atrium. Plan: Clinic Administrator will talk to Dr. Corazon regarding assessment for pacemaker 01/24: Patient has hypernatremia and hyperchloremia. IV fluid D5W started. Patient is still has AV block, P waves but rhythm is irregular. Twelve-lead EKGordered. Discussed with the workers' compensation claims examiner. Dr. Ling will talk to Dr. Chandra. 01/25: For now plan is to monitor. No plan for pacemaker as per the workers' compensation claims examiner. cracker off shows irregular heartbeat , Mobitz type II. [...] or advanced directive. His is power of metal container maker for health. After discussion of benefits/risks procedures [...] Qty: 0 0RF Patient Comments: PRN PER HALFWAY MAR melatonin 3 mg Tablet 3 mg PO QHS PRN PRN (Reason: Insomnia) Qty: 1 0RF Patient Comments: PRN PER HALFWAY MAR. donepezil 10 mg tablet 10 mg PO QHS duloxetine [Cymbalta] 60 mg capsule,delayed release(DR/EC) 60 mg PO DAILY cholecalciferol (vitamin D3) 1,250 mcg (50,000 unit) tablet 1,250 mcg PO MO insulin lispro [Humalog KwikPen Insulin] 100 unit/mL insulin pen See Protocol subcut [facility] Protocol: 6. Sliding Scale Insulin Custom [...] THEN INCREASE TO 10 MG DAILY. PER MAR PT IS GIVEN BOTH 5 MG AND 10 MG DAILY AT BEDTIME. PER SEP 5 MG LAST DOSE IS ON 01/28/23. Rx Instructions: 5 mg nightly x3 weeks, then increase to 10 mg nightly thereafter Referrals / Follow Up: Luis Caldera MD [Primary Care Provider] - Júnior Chandra MD [Med Staff - Active Staff] - Within 2 Weeks RoxannDO Liu [Med Staff - Active Staff] - Within 1 Month Disposition Disposition (needs filled in before D/C Order can be placed): [facility] Facility (6) Anemia Qualifiers: Anemia type: iron deficiency Iron deficiency anemia type: other iron deficiency Qualified Code(s): D50.8 - Other iron deficiency anemias 01/26/23 1157 <Electronically signed by Ryan Tinoco MD> Cosigner Signature (if applicable): CC: Dr. Luis Caldera MD; Dr. Lizzeth Riggs MD ~ [facility] Work Phone: [phone]) 725-673307-14-2023 Progress [facility] January 25, 2023 4:08pm Note Date/Time January 25, 2023 1:09 pm [facility] Medical Records Department [address] [place] [address] Progress Note - Cardiology 01/25/23 1308 MR#: [id number] Acct: [id number] Name: RICHARD ROY Rep #:[id number] : 1945 77 From: Rebecca LOZA PA PCP: Dr. Luis Caldera MD Status :ADM IN [facility] Documented by User: DENIA Wilkinson 01/25/23 [...] / -1260.25 1130.42 / 1030.42 14. / Lab / Micro Data 01/25/23 05:31 01/25/23 05:31 Labs: Laboratory Results - last 24 hr 01/22/23 11:32: Total Protein (PEP) 4.4 L, Globulin 1.9 L, Aldolase 1.5 L, IgG Total 417 L, IgG1 237 L, IgG2 115 L, IgG3 20, IgG4 8, IgA 194, IgM 15, IgE 399, Immunofixation Screen Comment, Albumin (DAVID) 2.5 L, Albumin/Globulin (DAVID) 1.4, Mjqyy-2-Nskuvwfkk DAVID 0.2, Abhyw-9-Ruwuwzjsp DAVID 0.6, Beta-Globulins (DAVID) 0.7, Gamma Globulins [...] 83.4 H, Lymph % (Auto) 5.9 L, Lea % (Auto) 7.8, Eos % (Auto) 1.0, [...] 83.4 H, Lymph % (Auto) 5.9 L, Lea % (Auto) 7.8, Eos % (Auto) 1.0, [...] stable hemodynamically. Charges/Coding Visit Charges Inpatient E&M: 45896 Subs Hosp L2 Documented by User: Dr. [...] notes and documentation Patient to follow-up as workers' compensation claims examiner Dr. Chandra with the results of the event monitor. To evaluate for permanent pacemaker implant. 01/25/23 1414 <Electronically signed by Rebecca LOZA> Cosigner Signature (if applicable): 01/25/23 1608 <Electronically signed by Lizzeth Riggs MD> CC: ~ Signed [facility] Work Phone: [phone]) 304-810407-14-2023 Progress note Author Ryan Tinoco [facility] January 25, 2023 2:08pm Note Date/Time January 25, 2023 9:30 am [facility] Medical Records Department [address] [place] [address] Progress Note - Hospitalist 01/25/23927 MR#: [id number] Acct: [id number] Name: RICHARD ROY Rep #:[id number] : 1945 77 From: Ryan Delgado PCP: Dr. Luis Caldera MD Status :ADM IN Location: [place] [address] Reason for Visit Reason for Visit: Diagnoses [...] / -1260.25 1130.42 / 1030.42 14. / . Lab / Micro Data 01/25/23 05:31 01/25/23 [...] 83.4 H, Lymph % (Auto) 5.9 L, Lea % (Auto) 7.8, Eos % (Auto) 1.0, [...] Heart rate in 50s.. Discussed with the workers' compensation claims examiner. No chest pain or tightness. Physical exam [...] is a 77-year-old gentleman being admitted from [facility] for multiple episodes of syncope and [...] the . His medical care is under [facility]. 01/22: Hemoglobin dropped to 8.9. Patient [...] Albumin (DAVID) 2.5 L, Albumin/Globulin (DAVID) 1.4, Hcklp-8-Lrubsreuv DAVID 0.2, Kwtqj-0-Kyoulslhe DAVID 0.6, Beta-Globulins (DAVID) 0.7, Gamma Globulins [...] 83.4 H, Lymph % (Auto) 5.9 L, Lea % (Auto) 7.8, Eos % (Auto) 1.0, [...] there was 2 dropped heartbeat in EKG. cracker off shows heart rate slowed down to 48 to 60/min. EKG in the morning about 6 AM today shows sinus rhythm with second- degree Mobitz type II block, RBBB, LAFB bifascicular block. Patient has history of bifascicular block. I talked to the patient's and informed her about the update. Patient has history of ascending aortic aneurysmand had that repaired along with aortic valve in [facility]. His workers' compensation claims examiner is Dr. Huston in [facility]. I think this is most probably due to start of the octreotide drip as patient was in sinus normal rhythm at time ofadmission. Octreotide discontinued. Clinic Administrator consulted. 2D echo ordered. 01/23: Echo states EF 55 to 60%, normal LV systolic function. Trivial MR. Mild diffuse aortic valve calcification. Normal left atrium. Plan: Clinic Administrator will talk to Dr. Chandra regarding assessment for pacemaker 01/24: Patient has hypernatremia and hyperchloremia. IV fluid D5W started. Patient is still has AV block, P waves but rhythm is irregular. Twelve-lead EKGordered. Discussed with the workers' compensation claims examiner. Dr. Ling will talk to Dr. Chandra. 01/25: For now plan is to monitor. No plan for pacemaker as per the workers' compensation claims examiner. cracker off shows irregular heartbeat , Mobitz type II. [...] or advanced directive. His is power of metal container maker for health. After discussion of benefits/risks procedures [...] systolic function Charges/Coding Visit Charges Inpatient E&M: 24369 Subs Hosp L2 01/25/23 1403 <Electronically signed by Ryan Tinoco MD> Cosigner Signature (if applicable): CC: ~ Signed [facility] Work Phone: [phone]) [phone] Progress note Author [facility] January 24, 2023 8:23pm Note Date/Time January 24, 2023 8:23 pm [facility] Medical Records Department [address] [place] [address] Progress Note - Hospitalist 01/24/232021 MR#: [id number] Acct: [id number] Name: RICHARD ROY Rep #:[id number] : 1945 77 From: Karen Aly MD PCP: Dr. 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 He is asymptomatic. Cardiology following and made aware also by RN that it is recurrent. 01/24/232022 <Electronically signed by Karen Aly MD> Cosigner Signature (if applicable): CC: ~ Signed [facility] Work Phone: [phone]) 506-599807-13-2023 Progress note Author Liu Hackett [facility] January 24, 2023 5:07pm Note Date/Time January 24, 2023 5:07 pm [facility] Medical Records Department [address] [facility] [place] [address] Progress Note - GI 01/24/231702 MR#: [id number] Acct: [id number] Name: RICHARD ROY Rep #:[id number] : 1945 77 From: Liu Hackett DO PCP: Dr. Luis Caldera MD Status :ADM IN Location: [place] [address] Subjective Subjective Patient laying in bed with [...] 82.8 H, Lymph % (Auto) 5.3 L, Lea % (Auto) 8.9, Eos % (Auto) 1.3, [...] ensure healing. Charges/Coding Visit Charges Inpatient E&M: 84702 Subs Hosp L3 01/24/23 1696 <Electronically signed by Liu Friend DO> Cosigner Signature (if applicable): CC: ~ Signed [facility] Work Phone: [phone]) [phone] Progress note Author Lizzeth Riggs [facility] January 24, 2023 4:25pm Note Date/Time January 24, 2023 1:41 pm [facility] Medical Records Department [address] [place] [address] Progress Note - Cardiology 01/24/23 1338 MR#: [id number] Acct: [id number] Name: RICHARD ROY Rep #:[id number] : 1945 77 From: Rebecca LOZA PA PCP: Dr. Luis Caldera MD Status :ADM IN Location: [place] [address] Documented by User: DENIA Wilkinson 01/24/23 13:45 [...] 82.8 H, Lymph % (Auto) 5.3 L, Lea % (Auto) 8.9, Eos % (Auto) 1.3, [...] 82.8 H, Lymph % (Auto) 5.3 L, Lea % (Auto) 8.9, Eos % (Auto) 1.3, [...] by GI. Charges/Coding Visit Charges Inpatient E&M: 61760 Subs Hosp L2 Documented by User: Dr. [...] by Lizzeth Riggs MD> CC: ~ Signed [facility] Work Phone: [phone]) 542-348907-13-2023 Miscellaneous Notes* Telephone Encounter - Tamika Grijalva [...] Patient's calling to say patient was at [facility] for rehabilitation after his hospitalization @ [facility] for confusion on 01/04. He was sent by squad to [facility] from [facility] on 01/21 due to episode of [...] post hospital stay but it won't be [facility]. Vannessa Jorge, RN documented in this encounter[facility] [place]-13-2023 Progress note Author Ryan Tinoco [facility] January 24, 2023 1:11pm Note Date/Time January 24, 2023 8:05 am [facility] Medical Records Department [address] [place] [address] Progress Note - Hospitalist 01/24/23 0758 MR#: [id number] Acct: [id number] Name: RICHARD ROY Rep #:[id number] : [...] Antibody < 0.2, Sm (Martinez) Antibody <0.2, SAMPLE SEWER Antibody <0.2, Scl-70 Scleroderma Ab <0.2, Double [...] 82.8 H, Lymph % (Auto) 5.3 L, Lea % (Auto) 8.9, Eos % (Auto) 1.3, [...] waves. Twelve-lead EKG ordered.. Discussed with the workers' compensation claims examiner. No chest pain or tightness. General: Awake [...] is a 77-year-old gentleman being admitted from [facility] for multiple episodes of syncope and [...] the . His medical care is under [facility]. 01/22: Hemoglobin dropped to 8.9. Patient [...] there was 2 dropped heartbeat in EKG. cracker off shows heart rate slowed down to 48 to 60/min. EKG in the morning about 6 AM today shows sinus rhythm with second- degree Mobitz type II block, RBBB, LAFB bifascicular block. Patient has history of bifascicular block. I talked to the patient's and informed her about the update. Patient has history of ascending aortic aneurysmand had that repaired along with aortic valve in [facility]. His workers' compensation claims examiner is Dr. Huston in [facility]. I think this is most probably due to start of the octreotide drip as patient was in sinus normal rhythm at time ofadmission. Octreotide discontinued. Clinic Administrator consulted. 2D echo ordered. 01/23: Echo states EF 55 to 60%, normal LV systolic function. Trivial MR. Mild diffuse aortic valve calcification. Normal left atrium. Plan: Clinic Administrator will talk to Dr. Chandra regarding assessment for pacemaker 01/24: Patient has hypernatremia and hyperchloremia. IV fluid D5W started. Patient is still has AV block, P waves but rhythm is irregular. Twelve-lead EKGordered. Discussed with the workers' compensation claims examiner. Dr. Ling will talk to Dr. Chandra. [...] or advanced directive. His is power of metal container maker for health. After discussion of benefits/risks procedures [...] systolic function Charges/Coding Visit Charges Inpatient E&M: 92779 Subs Hosp L3 01/24/23 1311 <Electronically signed by Ryan Tinoco MD> Cosigner Signature (if applicable): CC: ~ Signed [facility] Work Phone: [phone]) 680-186607-12-2023 Progress note Author Lizzeth Riggs [facility] January 23, 2023 2:45pm Note Date/Time January 23, 2023 10:0 0am [facility] Medical Records Department [address] [place] [address] Progress Note - Cardiology 01/23/23 0946 MR#: [id number] Acct: [id number] Name: RICHARD ROY Rep #:[id number] : [...] 85.3 H, Lymph % (Auto) 4.8 L, Lea % (Auto) 7.1, Eos % (Auto) 0.7, [...] 85.3 H, Lymph % (Auto) 4.8 L, Lea % (Auto) 7.1, Eos % (Auto) 0.7, [...] appears stable. Charges/Coding Visit Charges Inpatient E&M: 83108 Subs Hosp L2 01/23/23 1000 <Electronically signed by Rebecca LOZA> Cosigner Signature (if applicable): 01/23/23 1445 <Electronically signed by Lizzeth Riggs MD> CC: ~ Signed [facility] Work Phone: [phone]) 986-863907-12-2023 Procedure [facility] 01-23-2023 Procedure [facility]07-12-2023 Progress note Author Ryan Tinoco [facility] January 23, 2023 9:01am Note Date/Time January 23, 2023 9:01 am [facility] Medical Records Department [address] [place] [address] Progress Note - Hospitalist 01/23/23 0852 MR#: [id number] Acct: [id number] Name: RICHARD ROY Rep #:[id number] : [...] 85.3 H, Lymph % (Auto) 4.8 L, Lea % (Auto) 7.1, Eos % (Auto) 0.7, [...] every third beat dropped. Discussed with the workers' compensation claims examiner. No chest pain or tightness. General: Oriented [...] is a 77-year-old gentleman being admitted from [facility] for multiple episodes of syncope and [...] past when he had EGD in early s. Had last colonoscopy less than a year was normal as per the . His medical care is under [facility]. 01/22: Hemoglobin dropped to 8.9. Patient [...] there was 2 dropped heartbeat in EKG. cracker off shows heart rate slowed down to 48 to 60/min. EKG in the morning about 6 AM today shows sinus rhythm with second- degree Mobitz type II block, RBBB, LAFB bifascicular block. Patient has history of bifascicular block. I talked to the patient's and informed her about the update. Patient has history of ascending aortic aneurysmand had that repaired along with aortic valve in [facility]. His workers' compensation claims examiner is Dr. Huston in [facility]. I think this is most probably due to start of the octreotide drip as patient was in sinus normal rhythm at time ofadmission. Octreotide discontinued. Clinic Administrator consulted. 2D echo ordered. 01/23: Echo states EF 55 to 60%, normal LV systolic function. Trivial MR. Mild diffuse aortic valve calcification. Normal left atrium. Plan: Clinic Administrator will talk to Dr. Chandra regarding assessment [...] K 5 mg IV given in ED. 7/12: Repeat INR is 1.4. #6 BPH-patient is [...] or advanced directive. His is power of metal container maker for health. After discussion of benefits/risks procedures [...] organ systems), coordination with cardiology and GI platform consultant, review of labs and imaging is 50 minutes. Visit Charges Inpatient E&M: 40097 Subs Hosp L3 01/23/23 09 <Electronically signed by Ryan Tinoco MD> Cosigner Signature (if applicable): CC: ~ Signed [facility] Work Phone: [phone]) 165-551707-11-2023 Consult note Author Rebecca Leon [facility] January 22, 2023 4:28pm Note Date/Time January 22, 2023 4:07 pm [facility] Medical Records Department [address] [place] [address] Consultation - Cardiology 01/22/23 1605 MR#: [id number] Acct: [id number] Name: RICHARD ROY Rep #:[id number] : [...] hospital stay he was discharged to a alf facility for rehab. He presented back to the emergency room yesterday for syncope. The nurses at [facility] had noted that he was unresponsive at [...] last received [facility]oprolol [facility] the [facility] on [facility]23. I did speak with , [...] were adjusted at his last hospital stay. [facility] Medical History (Updated 01/22/23 @ 16:25 by [...] Hx of abdominal surgery Social History housing: [facility] current occupational status: retired Smoking Status: Never [...] Charges/Coding Visit Charges Office Visits / Consults: 38228 IP Consult L3 Objective Data Vital Signs: [...] RDW Coeff of Nathaniel 15.5 H, Plt [id number], MPV 10.1, Immature Gran % (Auto) 3.300 H, Neut % (Auto) 81.9 H, Lymph % (Auto) 5.9 L, Lea % (Auto) 8.0, Eos % (Auto) 0.7, Baso % (Auto) 0.2, Absolute Neuts (auto) 18.3 H, Absolute Lymphs (auto) 1.33, Nucleated RBC % 0.1, Diff PathReview November, Polychromasia 1+, Anisocytosis 1+, Sodium 144, Potassium [...] 81.9 H, Lymph % (Auto) 5.9 L, Lea % (Auto) 8.0, Eos % (Auto) 0.7,Baso [...] Caldera MD; Dr. Lizzeth Riggs MD~ Signed [facility] Work Phone: [phone]) 604-878307-11-2023 Progress note Author Ryan Tinoco [facility] January 22, 2023 8:38am Note Date/Time January 22, 2023 8:22 am [facility] Medical Records Department [address] [place] [id number] Progress Note - Hospitalist 01/22/23 0819 MR#: [id number] Acct: [id number] Name: RICHARD ROY Rep #:[id number] : [...] 87.8 H, Lymph % (Auto) 7.5 L, Lea % (Auto) 2.4, Eos % (Auto) 0.0, [...] Clarity Clear, Urine pH 5.0, Ur Specific Wheeler 1.020, Urine Protein 15 H, Urine Glucose [...] Std Deviation 46.7 H, RDW Coeff of Nathnaiel 15.5 H, Plt [id number], MPV 10.1, Immature Gran % (Auto) 3.300 H, Neut % (Auto) 81.9 H, Lymph % (Auto) 5.9 L, Lea % (Auto) 8.0, Eos % (Auto) 0.7, [...] havingirregular heartbeat after midnight, initially A-fib on public records researcher. After that about 5 AM patient started [...] is a 77-year-old gentleman being admitted from [facility] for multiple episodes of syncope and [...] the . His medical care is under [facility]. 01/22: Hemoglobin dropped to 8.9. Patient [...] there was 2 dropped heartbeat in EKG. cracker off shows heart rate slowed down to 48 to 60/min. EKG in the morning about 6 AM today shows sinus rhythm with second- degree Mobitz type II block, RBBB, LAFB bifascicular block. Patient has history of bifascicular block. I talked to the patient's and informed her about the update. Patient has history of ascending aortic aneurysmand had that repaired along with aortic valve in [facility]. His workers' compensation claims examiner is Dr. Huston in [facility], [place]. I think this is most probably due to start of the octreotide drip as patient was in sinus normal rhythm at time ofadmission. Octreotide discontinued. Clinic Administrator consulted. 2D echo ordered. 3. Essential hypertension [...] or advanced directive. His is power of metal container maker for health. After discussion of benefits/risks procedures involved with full code, DNR CC arrest and DNR CC, the patient and his opted for full code. Patient does want artificial life support including intubation, tube feed, ventilator and/chest compression, central venous catheter, vasopressor and DC shock if needed Charges/Coding Visit Charges Inpatient E&M: 42486 [facility] Hosp L3 01/22/23 0838 <Electronically signed by Ryan Tinoco MD> Cosigner Signature (if applicable): CC: ~ Signed [facility] Work Phone: [phone]) 258-555107-10-2023 Consult note Author Liu Friend [facility] January 21, 2023 7:07pm Note Date/Time January 21, 2023 7:04 pm [facility] Medical Records Department [address] [place] [address] Consultation - GI 01/21/231901 MR#: [id number] Acct: [id number] Name: RICHARD ROY Rep #:[id number] : 1945 77 From: Liu Friend DO PCP: Dr. Luis Caldera MD Status :ADM IN Location: ICU CVICU20 2-1 HPI Consult Data Date of Consult: 01/21/23 HPI Narrative Reason for Consultation: GI bleed HPI Narrative: RICHARD ROY, is a 77 M who presents with melena goals from [facility]. He is on warfarin for history of DVT and atrial fibrillation. [facility]. He was admitted between 01/05 to 01/08/23 for confusion and generalized weakness, stroke was ruled out and was sent to [facility]. Started getting confused within the past [...] down to 10.9 from 13.1 on discharge. [facility] Medical History Amputation of right great toe [...] Hx of abdominal surgery Social History housing: [facility] current occupational status: retired Smoking Status: Never [...] 87.8 H, Lymph % (Auto) 7.5 L, Lea % (Auto) 2.4, Eos % (Auto) 0.0, [...] Clarity Clear, Urine pH 5.0, Ur Specific Wheeler 1.020, Urine Protein 15 H, Urine Glucose [...] 6 hours. Charges/Coding Visit Charges Inpatient E&M: 25145 Init Hosp L3 01/21/23 1904 <Electronically signed by Liu Friend DO> Cosigner Signature (if applicable): CC: Dr. Luis Caldera MD~ Signed [facility] Work Phone: [phone]) 535-614607-10-2023 Discharge summary Author Dandy Sauer [facility] January 21, 2023 5:25pm Note Date/Time January 21, 2023 9:06 am [facility] Medical Records Department [address] [place] [address] Emergency Department Summary 01/21/23 MR#: [id number] Acct: [id number] Name: RICHARD ROY Rep #:[id number] : 1945 77 From: Dandy Sauer MD PCP: Dr. Luis Caldera MD Status :ADM IN Location: ICU CVICU20 2-1 HPI History of Present Illness Chief Complaint: Syncope Informant: spouse/S.O., EMS and SNF Narrative Narrative: Patient sent from [facility] where he has been for several [...] pain, but he denies it right now. [facility] Medical History Amputation of right great toe [...] 09:[address] Dandy Sauer MD) housing: [facility] current occupational status: retired Smoking Status: Never [...] place including the state. Downgoing toes bilaterally Post Coma Scale: document GCS findings To Voice [...] an upper GI bleed. Discussed with JOHN Martin Friend, hospitalist, and I discussed with the at [...] 87.8 H Lymph % (Auto) 7.5 L Lea % (Auto) 2.4 Eos % (Auto) 0.0 [...] Management Discussion w/another healthcare provider: Hospitalist and Principal [employer]ural [employer] (GI) Critical Care Time Critical Care Time: Yes Critical care time (excluding procedures): 30-74 minutes (33 min), Including time spent:, Discussing w/Patient &/or Family/Armament Aircraft Mechanic, Discussing w/Consultants, Arranging Admission or Transfer and Performing Direct Patient Care at Bedside Discharge Plan Dx/Rx/DC Orders Clinical Impression: Acute encephalopathy, Syncope, Supratherapeutic INR, ABLA (acute blood loss anemia), Upper gastrointestinal bleeding, Warfarin-induced coagulopathy Disposition Disposition: [facility] Capacity Capacity Assessment Tool Can the patient [...] your Primary Care Provider. Call [facility] ([phone]) or report to the closest Emergency Room. Call 911 if necessary. 01/21/231724 <Electronically signed by Dandy Sauer MD> Cosigner Signature (if applicable): CC: Dr. Luis Caldera MD ~ Signed [facility] Work Phone: [phone] History and physical note Author Ryan Tinoco [facility] January 21, 2023 12:24pm Note Date/Time January 21, 2023 11:5 8am [facility] Medical Records Department [address] [place], [place] [address] [address] H&P Exam - Hospitalist 01/21/23 1156 MR#: [id number] Acct: [id number] Name: RICHARD ROY Rep #:[id number] : 1945 77 From: Ryan Delgado PCP: Dr. Luis Caldera MD Status :ADM IN Location: ICU CVICU20 2-1 HPI - General General Date of Admission: 01/21/23 Date of Service: 01/21/23 Chief Complaint: Patient was unresponsive in the morning. Had large black tarrystool. HPI Narrative RICHARD ROY, is a 77 M gentleman was [facility] from [facility] for syncopal episodes and black tarry stool. Prior to that he was admitted between 01/05 to 01/08/23 for confusion and generalized weakness, stroke was ruledout and was sent to [facility]. Patient is not a good historian. As per the nursing report, patient had multiple short syncopal episodes in the morning after he had a large black tarry stool. Patient had been having dark stool for last couple days in [facility]. Patient does not remember himself from dementia/depression. [...] further admitted in in the context of [facility] Medical History Amputation of right great toe [...] Hx of abdominal surgery Social History housing: [facility] current occupational status: retired Smoking Status: Never [...] 87.8 H, Lymph % (Auto) 7.5 L, Lea % (Auto) 2.4, Eos % (Auto) 0.0, [...] Clarity Clear, Urine pH 5.0, Ur Specific Wheeler 1.020, Urine Protein 15 H, Urine Glucose [...] is a 77-year-old gentleman being admitted from [facility] for multiple episodes of syncope and [...] the . His medical care is under [facility]. 2 Syncopal episode most likely due [...] or advanced directive. His is power of metal container maker for health. After discussion of benefits/risks procedures involved with full code, DNR CC arrest and DNR CC, the patient and his opted for full code. Patient does want artificial life support including intubation, tube feed, ventilator and/chest compression, central venous catheter, vasopressor and DC shock if needed Total time spent in [id number] encounter in discussion of advanced directive 17 [...] 87.8 H, Lymph % (Auto) 7.5 L, Lea % (Auto) 2.4, Eos % (Auto) 0.0, [...] Clarity Clear, Urine pH 5.0, Ur Specific Wheeler 1.020, Urine Protein 15 H, Urine Glucose (UA) 100 H, Urine Ketones 15 H, Urine Occult Blood Negative, Urine Nitrite Negative, Urine Bilirubin 1 H, Urine Urobilinogen Normal, Ur Leukocyte Esterase Negative, Urine RBC 0 SEEN, Urine WBC 0-5 SEEN, Ur Squamous Epith Cells 0-5 SEEN, Urine Bacteria 0 SEEN, Urine Mucus 0 SEEN Charges/Coding Visit Charges Inpatient E&M: 10791 Init Hosp L3 Procedures Hospitalists Procedures: 00035 Advncd Care Plan 30 Min 01/21/23 1223 [...] MD; Dr. Ryan Tinoco MD ~* Signed [facility] Work Phone: [phone]) 136-702306-23-2023 Miscellaneous Notes* Telephone Encounter - Amada Cohn [...] again recommend ER evaluation. documented [facility] [place] Miscellaneous Notes* Telephone Encounter - Tamika Grijalva LPN - 01/04/2023 8:27 AM EDT No return call received, however, noted patient now scheduled for OV with PCP for 01/04/23. * Telephone Encounter - Amada Cohn Ma - 01/03/2023 4:09 PM EDT Tried to reach pt EC Ciarra, line still just rings. Amada Lalit Cole * Telephone Encounter - Amada Lalit Cole - 01/03/2023 3:07 PM EDT Tried to reach ciarra but line just rings. No answer or machine to leave message. Amadaafshan Cohn Ma * Telephone Encounter - Abdulaziz [...] scheduled appointment with PCP on 01/04. Vannessa Jorge, JACEY documented in this encounterSelect [facility] [place] History of Present illness Narrative* Justina LemonsEspinozaRafa, PT - 01/03/2023 12:54 PM EDT Episode [...] included: Therapeutic exercise, Neuromuscular re-education, Therapeutic activities, Self-custodial management, and Gait training. Goals for Episode [...] PARTIALLY MET, improved 8 to 9 reps Craven in home exercise program including cardiovascular exercise. [...] with an (*). Patient education as noted. Self-Half-Way Management: 1: *strongly enouraged f/u with physician [...] 5 Justina Escoto PT documented in this encounterSelect [facility] [place]-19-2023 History of Present illness Narrative* Justina Escoto [...] Total Treatment Time Minutes (timed/untimed): 42 ALISIA Burch, PT documented in this encounterSelect [facility] [place]-15-2023 History of Present illness Narrative* Justina Escoto, [...] 40 ALISIA Burch PT documented in this encounterSelect [facility] [place]-12-2023 History of Present illness Narrative* Justina Escoto PT - 12/24/2022 1:38 PM EDT Episode [...] was facilitated with verbal and visual cueing. Self-Half-Way Management: 1: *strongly encouraged pt. to be [...] 40 Justina Escoto PT documented in this encounterSelect [facility] [place]-2023 History of Present illness Narrative* Justina Escoto [...] of gait belt. Patient education as noted. Self-Half-Way Management: 1: *discussed automatic lights 2: *discussed [...] 40 Justina Escoto PT documented in this encounterSelect [facility] [place]-02-2023 History of Present illness Narrative* Justina Escoto PT - 12/14/2022 2:37 PM EDT Episode Visit Count: 5 Therapist That Will Accept/Oversee The Plan Of Care: Justina Escoto Start of Care Date: 11/29/22 Onset Date: 09/29/22 Plan of Care Certification Date: 11/29/22 Next Certification Due Date: 01/03/23 [facility]ERAPY PHYSICAL THERAPY TREATMENT NOTE ASSESSMENT: Richard Bonilla Kirill tolerated the session with fatigue. He demonstrated [...] 40 Justina Escoto PT documented in this encounterSelect [facility] [place]-31-2023 History of Present illness Narrative* Justina Escoto, PT - 12/12/2022 5:45 PM EDT Episode [...] 40 Justina Escoto PT documented in this encounterSelect [facility] [place]05-09-2023 Miscellaneous Notes* Telephone Encounter - GABI Link - 11/20/2022 9:19 AM EDT [facility] 11/19/22 Appointment scheduled 02/05/23 Please advise. Thank you. GABI Link * Telephone Encounter - Nola Lockhart - 11/20/2022 8:58 AM EDT Patient is [...] to the pharmacy. Please call patient at: [phone]. Nola Lockhart documented in this encounterSelect [facility] [place]05-08-2023 Miscellaneous Notes* Telephone Encounter - Tania Heller [...] and result): 09/24/2022 2.5 documented in this encounterSelect [facility] [place]04-10-2023 History of Present illness Narrative* Zachary Obregon [...] Patient, Diabetic Foot Care documented in this encounterSelect [facility] [place]04-10-2023 Instructions* Patient Instructions* Zachary Obregon - 10/22/2022 [...] (or decreased sensation in your feet) a tractor distributor should always cut your toenails. Be Careful [...] Go to your health care provider or tractor distributor to treat these conditions. documented in this encounterSelect [facility] [place]03-14-2023 Miscellaneous Notes* Telephone Encounter - Rebecca Estbean LPN - 09/25/2022 11:02 AM EDT Patient [...] Information or narrative: no documented in this encounterSelect Medical [facility] [place]02-24-2023 Miscellaneous Notes* Telephone Encounter - Suzanne Connelly RN - 09/07/2022 1:11 PM EST Call to patient. Provided number to schedule- [phone]. Offered to transfer patient to schedulebut patient declined to schedule stating he could call later. PALOA Potter, RN September 07, 2022 1:11 PM * Telephone Encounter - Jojo Kaur MD - 09/07/2022 11:39 AM EST Suzanne please let patient know how to proceed with driving evaluation I already put the order in computer documented in this encounterSelect [facility] [place]-24-2023 History of Present illness Narrative* Jojo Kaur [...] of folllow up after hospitalization in [facility]. 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 ([facility]) 05/25/2018 History of transfusion Hyperlipidemia LDL goal < 100 04/01/2012 NSTEMI (non-ST elevated myocardial infarction) ([facility]) Pulmonary embolus, right ([facility]) 09/25/2013 Status post aortic valve repair 2005 Thoracic aneurysm without mention of rupture Type 2 diabetes mellitus with stage 3 chronic kidney disease, with long-term current use of insulin([facility]) 06/20/2016 Vitamin D deficiency 01/03/2022 PSH: PAST SURGICAL HISTORY Procedure Laterality Date ABDOMINAL SURGERY HX AMPUTATION METATARSAL+TOE,SINGLE Right 05/25/2018 with delayed closure on 05/28/18. Dr. Obregon at [facility] COLONOSCOPY 10/10/2021 repeat in 3 years [...] one time a week. blood sugar diagnostic ([facility]CH ULTRA TEST) test strip Test blood [...] gait ,unsteady Cannot tandem Jojo Kaur M.D. [facility] [place] Department of Neurology Total time in minutes [...] lights on at night. documented in this encounterSelect Medical [facility] [place]02-14-2023 Miscellaneous Notes* Telephone Encounter - Tamika Grijalva [...] no Tania Heller LPN documented in this encounterSelect Medical Specialty [facility] [place]02-02-2023 Miscellaneous Notes* Telephone Encounter - Grecia Bustillo [...] notify patient. Grecia Bustillo documented in this encounterSelect Medical [facility] [place]01-31-2023 Miscellaneous Notes* Telephone Encounter - Tamika Grijalva [...] dose of coumadin is: 10mg mon & sat, 7.5mg all other days. Last date of dose change: unknown. Previous INR (date and result): 3.4 07/30/2022 Additional Clinical Information or narrative: no documented in this encounterSelect Medical [facility] [place]01-26-2023 History of Present illness Narrative* Abdulaziz Caldera [...] 12 months ago. Going to schedule appointment [facility]. 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 Asymtpomatic still on medical management. Has completed his home PT/OT. Echo and stress test at [facility] were negative/normal. Has follow up with Dr. Huston on 12/03. questioning if they should be seen sooner. BP well controlled with current regimen <130/80. BPH: With use of flomax, patient is getting up once at night to urinate. Has weak stream, but denies straining, incomplete emptying, dysuria, hematuria, incontinence. Followed up with ENT in [place] for chronic frontal sinusitis on CT/MRI going back to February. Told this did not require treatment. F/u PRN. Denies sinus pressure/pain/congestion. Past medical history, appointments, medications, allergies reviewed. Previous Medical History PAST MEDICAL HISTORY Diagnosis Date BPH (benign prostatic hyperplasia) Cholelithiasis 09/25/2013 Chronic neutrophilia Benign-Dr. 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 ([facility]) 05/25/2018 History of transfusion Hyperlipidemia LDL goal < 100 04/01/2012 Pulmonary embolus, right ([facility]) 09/25/2013 Status post aortic valve repair 2004 Thoracic aneurysm without mention of rupture Type 2 diabetes mellitus with stage 3 chronic kidney disease, with long-term current use of insulin([facility]) 06/20/2016 Vitamin D deficiency 01/03/2022 Previous Surgical History PAST SURGICAL HISTORY Procedure Laterality Date ABDOMINAL SURGERY HX AMPUTATION METATARSAL+TOE,SINGLE Right 05/25/2018 with delayed closure on 05/28/18. Dr. Obregon at [facility] COLONOSCOPY 10/10/2021 repeat in 3 years [...] by mouth once daily. blood sugar diagnostic ([employer]OUCH ULTRA TEST) test strip Test blood sugar(s) [...] Abs Lymph 1.00 - 4.00 k/uL 1.81 Lea% % 6.9 Abs Lea <0.87 k/uL 0.86 Eosin% % 3.1 Abs [...] arise. - Discussed diabetic education issues of emt intermediate diabetic complications, hypoglycemic symptoms, hyperglycemic symptoms, diet, [...] reigmen. Abdulaziz Caldera MD documented in this encounterSelect Medical [facility] [place]01-23-2023 Miscellaneous Notes* Telephone Encounter - Tamika Grijalva [...] pt. Mila Castro LPN documented in this encounterSelect Medical Special[facility] [place]01-23-2023 History of Present illness Narrative* Zachary Jaimes [...] or electronic medical record. documented in this encounterSelect Medical [facility] [place]01-17-2023 Miscellaneous Notes* Telephone Encounter - Melba Jones [...] 2022. Rebecca Esteban LPN documented in this encounterSelect Medical Specialty [facility] [place]01-13-2023 Miscellaneous Notes* Telephone Encounter - Meghana Burgess - 07/27/2022 9:55 AM EST [employer] message not read as of 07/27/2022. Called and spoke with patient. Appt rescheduled to 09/07/2022 at 11:00 AM Meghana Burgess * Telephone Encounter - Meghana Burgess - 07/05/2022 4:08 PM EST Due to change in provider's schedule, appt on 08/21/2022 needs rescheduled. Patient notified via [employer] message on 07/05/2022. Meghana Burgess documented in this encounterSelect [facility] [place]01-12-2023 Miscellaneous Notes* Telephone Encounter - Abdulaziz Caldera MD - 07/26/2022 3:09 PM EST Thanks. * Telephone Encounter - Ann Castillo RN - 07/26/2022 3:04 PM EST Darlyn, a nurse with [facility] calling to state she has discharged pt from alf today. Pt is doing really well. No call back needed. Thank you. documented in this encounterSelect Medical [facility] [place]01-11-2023 Miscellaneous Notes* Telephone Encounter - Suzanne Lino RN - 07/25/2022 1:42 PM EST Last Office Visit: 07/12/2022 Future Office Visit: 08/09/2022 Requested Prescriptions Pending Prescriptions Disp Refills amLODIPine (NORVASC) 2.5 mg tablet 30 tablet 5 Sig: Take 1 tablet by mouth once daily. Date of Last Labs: 03/02/2022 documented in this encounterSelect Medical [facility] [place]01-03-2023 Miscellaneous Notes* Telephone Encounter - Abdulaziz Caldera MD - 07/17/2022 12:58 PM EST Reviewed and agree. * Telephone Encounter - Halima Diaz RN - 07/17/2022 12:51 PM EST Maverick PT calling from [facility] to report plan of care for patient and PT will visit patient 2 times a week for 3 weeks. PT will work with patient on functional mobility training. Halima Diaz RN documented in this encounterSelect [facility]-03-2023 Miscellaneous Notes* Telephone Encounter - Abdulaziz Caldera MD - 07/17/2022 11:18 AM EST Reviewed. * Telephone Encounter - Eva Schmid LPN - 07/17/2022 11:12 AM EST Barbi from [facility] calling with OT plan of care, one time visit only, patient denies any further OT needs. No call back needed. documented in this encounterSelect Medical [facility] [place]12-30-2022 Miscellaneous Notes* Telephone Encounter - Ewa Andino Ma - 07/13/2022 11:30 AM EST Left detailed message on confidential line Ewa Andino Ma * Telephone Encounter - Abdulaziz Caldera MD - 07/13/2022 11:01 AM EST agree * Telephone Encounter - Ann Castillo RN - 07/13/2022 10:00 AM EST Chiki, a nurse with [facility] calling with [facility] Plan of Care for patient: Patient will be seen 1 time per week for 4 weeks for BP monitoring. No call back needed if provider agreeable. Thank you. documented in this encounterSelect Medical [facility] [place]12-29-2022 Miscellaneous Notes* Telephone Encounter - Ewa Andino Ma - 07/12/2022 10:53 AM EST Karly was notified Ewa Andion Ma * Telephone Encounter - Abdulaziz Caldera MD - 07/12/2022 10:47 AM EST Agree and will follow * Telephone Encounter - Marcella Alvarez RN - 07/12/2022 10:07 AM EST Karly with [facility] called and reports Pt was discharged yesterday and they received a referral for PT/OT/SN. They are going to do their start of care tomorrow, and she was asking if the provider would be willing to follow. documented in this [facility]12-26-2022 Miscellaneous Notes* Telephone Encounter - Suzanne Lino RN - 07/09/2022 11:46 AM EST Last Office Visit: 04/16/2022 Future Office Visit: 09/17/2022 Requested Prescriptions Pending Prescriptions Disp Refills dulaglutide (TRULICITY) 1.5 mg/0.5 mL pen injector 12 Each 3 Sig: Inject 1.5 mg subcutaneously one time a week. Inject once per week. Discard Pen After Date of Last Labs: 03/02/2022 documented in this [facility]12-12-2022 Miscellaneous Notes* Telephone Encounter - Tania Heller [...] patient. Tania Heller LPN documented in this [facility]11-02-2022 Miscellaneous Notes* Telephone Encounter - Mila Castro [...] you. Mila Castro LPN documented in this encounterSelect Medical Specialty [facility] [place]10-04-2022 History of Present illness Narrative* Jojo Kaur [...] of folllow up after hospitalization in [facility]. 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 ([facility]) 05/25/2018 History of transfusion Hyperlipidemia LDL goal < 100 04/01/2012 Pulmonary embolus, right ([facility]) 09/25/2013 Status post aortic valve repair 2005 Thoracic aneurysm without mention of rupture Type 2 diabetes mellitus with stage 3 chronic kidney disease, with long-term current use of insulin([facility]) 06/20/2016 Vitamin D deficiency 01/03/2022 PSH: PAST SURGICAL HISTORY Procedure Laterality Date ABDOMINAL SURGERY HX AMPUTATION METATARSAL+TOE,SINGLE Right 05/25/2018 with delayed closure on 05/28/18. Dr. Obregon at [facility] COLONOSCOPY 10/10/2021 repeat in 3 years [...] week. Discard Pen After blood sugar diagnostic ([employer] ULTRA TEST) test [...] gait ,unsteady Cannot tandem Jojo Kaur M.D. [facility] [place] Department of Neurology Total time in minutes [...] lights on at night. documented in this encounterSelect Medical [facility]ty [facility] [place]10-04-2022 Miscellaneous Notes* Telephone Encounter - Abdulaziz Caldera MD - 04/17/2022 11:24 AM EDT Reviewed. * Telephone Encounter - MERYL Zamudio - 04/17/2022 11:03 AM EDT Behavioral Health Social Work Progress Note Patient identified for [facility] from: PCP Reason for referral: [facility] Resources: Psychology - talk therapy [facility] encounter type: Telephone Encounter Attempts to Outreach: 1 attempt Referral made: Psychology - External Psychology-External referral type: Therapy Reason for external referral: Wait times at [facility] too long Final Disposition: Resources given Patient Discharged?: Yes Patient reported that caregiver was able to meet their needs today?: Yes SW placed a phone call to patient at the request of the PCP. Pt reported he is looking for talk therapy referrals at this time. SW provided the following referrals via phone: [facility] [address], [address], [facility] [address] *[facility] [address] [address] *counseling [address], [address] [place] [address] *counseling [facility] [address] [place] [address] FEDERICO Zamudio April 17, 2022 documented in this encounterSelect Medical Specialty [facility] [place]10-03-2022 History of Present illness Narrative* Abdulaziz Caldera [...] Diabetes mellitus with neurological manifestation ([facility]) 09/08/2010 Diabetic retinopathy of right eye ([facility]) mild Diverticulosis of colon (without [...] with long-term current use of insulin([facility]) 06/20/2016 Vitamin D deficiency 01/03/2022 Previous Surgical History PAST SURGICAL HISTORY Procedure Laterality Date ABDOMINAL SURGERY HX AMPUTATION METATARSAL+TOE,SINGLE Right 05/25/2018 with delayed closure on 05/28/18. Dr. Obregon at [facility] COLONOSCOPY 10/10/2021 repeat in 3 years [...] week. Discard Pen After blood sugar diagnostic ([facility] ULTRA TEST) test strip Test blood [...] Abs Lymph 1.00 - 4.00 k/uL 1.81 Lea% % 6.9 Abs Lea <0.87 k/uL 0.86 Eosin% % 3.1 Abs [...] arise. - Discussed diabetic education issues of emt intermediate diabetic complications, hypoglycemic symptoms, hyperglycemic symptoms, diet, [...] regimen. Abdulaziz Caldera MD documented in this encounterSelect Medical [facility] [place]10-03-2022 Evaluation note* Diagnosis Type 2 diabetes mellitus with stage 3a chronic kidney disease, with long-term current use of insulin (HCC)- Primary 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, macular edema presence unspecified ([facility]) Essential hypertension, benign Hyperlipidemia with target LDL less than 100 Other and unspecified hyperlipidemia Mild depression Depressive disorder, not elsewhere classified BPH without urinary obstruction Hypertrophy of prostate without urinary obstruction and other lower urinary tract symptoms (LUTS) documented in this encounter [facility] [place]09-23-2022 History of Present illness Narrative* Roselia Madrigal, MARYLU.SUPERVISOR [employer] MET[employer] - 04/06/2022 9:40 AM EDT 04/06/2022 Patient [...] Diabetes mellitus with neurological manifestation ([facility]) 09/08/2010 Diverticulosis of colon (without mention of hemorrhage) Encounter for monitoring Coumadin therapy 09/23/2013 INR goal 2.5-3.5 Essential hypertension, benign 10/28/2012 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 FOR CHOLESTEROL. blood sugar diagnostic ([employer] ULTRA TEST) test strip Test blood sugar(s) [...] SEASONAL QUADRIVALENT HIGH DOSE AGE 65+ - [employer] COVID-19 BIVALENT BOOSTER VACCINE, AGE 12+ YR [...] which included preparing to see the patient, [id number] patient care, completing clinical documentation, obtaining and/or reviewing separately obtained history, performing a medically appropriate examination, and counseling and educating the patient/family/caregiver. documented in this encounterSelect Medical [facility] [place]09-21-2022 Miscellaneous Notes* Telephone Encounter - Valencia Pascual [...] EDT ----- Please forward INR to doctor information technology project manager Roselia Madrigal APRN.CNP documented in this encounterSelect Medical Specialty [facility] [place]09-16-2022 History of Present illness Narrative* Zachary Sabas - 03/30/2022 3:46 PM EDT Last saw [...] Care Merlene Martinez LPN documented in this encounterSelect Medical Specialty [facility] [place]09-16-2022 Instructions* Patient Instructions* Zachary Obregon - 03/30/2022 [...] (or decreased sensation in your feet) a tractor distributor should always cut your toenails. Be Careful [...] Go to your health care provider or tractor distributor to treat these conditions. documented in this encounterSelect Medical [facility] [place]09-09-2022 History of Present illness Narrative* David Poon, PT - 03/23/2022 12:03 PM EDT Episode Visit Count: 17 Therapist That Will Oversee The Plan Of Care: David Poon Start of Care Date: 01/12/22 Onset [...] 01/12/22 through 03/15/22 Goals updated on 03/23/2022. [place] in home exercise program. (Met) Patient will [...] 17 Total Treatment Time Minutes (timed/untimed): 42 David Poon PT documented in this encounterSelect Medical [facility]ty [facility] [place]09-08-2022 Miscellaneous Notes* Telephone Encounter - Maggy Ibarra [...] advise. Maggy Ibarra Pss documented in this encounterSelect Medical Specialty [facility] [place]09-02-2022 History of Present illness Narrative* David Poon PT - 03/16/2022 7:05 AM EDT Episode Visit Count: 16 Therapist That Will Oversee The Plan Of Care: David Poon Start of Care Date: 01/12/22 Onset [...] Total Treatment Time Minutes (timed/untimed): 40 Karen Weber DIMENSION WAREHOUSE SUPERVISOR David Poon PT documented in this encounterSelect Medical [facility]ty [facility] [place]08-29-2022 History of Present illness Narrative* David Poon PT - 03/12/2022 2:26 PM EDT Episode Visit Count: 15 Therapist That Will Oversee The Plan Of Care: David Poon Start of Care Date: 01/12/22 Onset [...] Total Treatment Time Minutes (timed/untimed): 41 Karen Gus, [employer] WAREHOUSE SUPERVISOR David Poon, PT documented in this encounterSelect Medical [facility]ty [facility] [place]08-26-2022 Miscellaneous Notes* Addendum Note - David Poon PT - 03/09/2022 1:18 PM EDTAddended by: DAVID POON on: 03/09/2022 01:18 PM Modules accepted: Orders documented in this encounterSelect Medical Specialty [facility] [place]08-26-2022 History of Present illness Narrative* David Poon PT - 03/09/2022 10:32 AM EDT Episode Visit Count: 14 Therapist That Will Oversee The Plan Of Care: David Poon Start of Care Date: 01/12/22 Onset [...] 01/12/22 through 03/15/22 Goals updated on 03/09/2022. [place] in home exercise program. (Met) Patient will [...] Patient to be seen for Therapeutic exercise (83607);Neuromuscular re-education (10242);Gait Training (68408);Patient/Family/Caregiver Education PLAN FOR NEXT VISIT: Add bridging [...] 25 Total Treatment Time Minutes (timed/untimed): 42 David Poon PT documented in this encounterSelect Medical [facility]ty [facility] [place]08-24-2022 Miscellaneous Notes* Telephone Encounter - Amada Cohn [...] testing Madison Ma Cma documented in this encounterSelect Medical Specialty [facility] [place]08-24-2022 Instructions* Patient Instructions* Abdulaziz Caldera MD - 03/07/2022 11:45 AM EDT Please take 2,000 units of vitamin D daily over the counter. documented in this encounterSelect Medical [facility]ty [facility] [place]08-24-2022 History of Present illness Narrative* Abdulaziz Caldera MD - 03/07/2022 11:19 AM EDT Chief Complaint Patient presents with: 6 Month Exam ER F/U HPI Richard Roy is a 76 year old male who presents here today for ER Follow Up.. 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 ([facility]) 05/25/2018 History of transfusion Hyperlipidemia LDL goal < 100 04/01/2012 Pulmonary embolus, right ([facility]) 09/25/2013 Status post aortic valve repair 2005 Thoracic aneurysm without mention of rupture Type 2 diabetes mellitus with stage 3 chronic kidney disease, with long-term current use of insulin([facility]) 06/20/2016 Vitamin D deficiency 01/03/2022 Previous Surgical History PAST SURGICAL HISTORY Procedure Laterality Date ABDOMINAL SURGERY HX AMPUTATION METATARSAL+TOE,SINGLE Right 05/25/2018 with delayed closure on 05/28/18. Dr. Obregon at [facility] COLONOSCOPY 10/10/2021 repeat in 3 years [...] ONCE DAILY. FOR CHOLESTEROL. blood sugar diagnostic ([facility] ULTRA TEST) test strip Test blood [...] Abs Lymph 1.00 - 4.00 k/uL 1.81 Lea% % 6.9 Abs Lea <0.87 k/uL 0.86 Eosin% % 3.1 Abs [...] PANEL Abdulaziz Caldera MD documented in this encounterSelect Medical [facility] [place]08-22-2022 History of Present illness Narrative* David Poon, PT - 03/05/2022 12:46 PM EDT Episode Visit Count: 13 Therapist That Will Oversee The Plan Of Care: David Poon Start of Care Date: 01/12/22 Onset [...] 25 Total Treatment Time Minutes (timed/untimed): 40 David Poon PT documented in this encounterCleveland [id number] History of Present illness Narrative* David Poon, PT - 03/02/2022 1:01 PM EDT Episode Visit Count: 12 Therapist That Will Oversee The Plan Of Care: David Poon Start of Care Date: 01/12/22 Onset [...] 25 Total Treatment Time Minutes (timed/untimed): 45 David Poon PT documented in this encounterSelect Medical [facility] [place]08-15-2022 History of Present illness Narrative* David Poon PT - 02/26/2022 4:19 PM EDT Episode Visit Count: 11 Therapist That Will Oversee The Plan Of Care: David Poon Start of Care Date: 01/12/22 Onset [...] 20 Total Treatment Time Minutes (timed/untimed): 45 David Poon PT documented in this encounterSelect Medical [facility] [place]08-12-2022 History of Present illness Narrative* David Poon PT - 02/23/2022 4:20 PM EDT Episode Visit Count: 10 Therapist That Will Oversee The Plan Of Care: David Poon Start of Care Date: 01/12/22 Onset [...] 43 ALISIA Whiting PT documented in this encounterSelect Medical [facility] [place]08-03-2022 History of Present illness Narrative* David Poon PT - 02/14/2022 11:23 AM EDT Episode Visit Count: 9 Therapist That Will Oversee The Plan Of Care: David Poon Start of Care Date: 01/12/22 Onset [...] 27 Total Treatment Time Minutes (timed/untimed): 47 David Poon PT documented in this encounterSelect Medical Specialty [facility] [place]07-29-2022 History of Present illness Narrative* David Poon PT - 02/09/2022 10:38 AM EDT Episode Visit Count: 7 Therapist That Will Oversee The Plan Of Care: David Poon Start of Care Date: 01/12/22 Onset Date: 12/28/21 Plan of Care Certification Date: 01/12/22 Next Certification Due Date: 03/15/22 Patient Identified by Name and Date of : Yes REHABIL[facility]ATION AND SPORTS THERAPY PHYSICAL THERAPY PROGRESS REPORT PLAN OF CARE UPDATE: Assessment: Richard Bonilla Kirill demonstrates difficulty with walking in the community [...] 01/12/22 through 03/15/22 Goals updated on 02/09/2022. [place] in home exercise program. (Met) Patient will [...] Patient to be seen for Therapeutic exercise (97624);Neuromuscular re-education (93615);Gait Training (83989);Patient/Family/Caregiver Education PLAN FOR NEXT VISIT: Continue to [...] 26 Total Treatment Time Minutes (timed/untimed): 44 David Poon PT documented in this encounterSelect Medical [facility] [place]07-26-2022 Miscellaneous Notes* Telephone Encounter - Nola Castro [...] patient. Nola Castro Pss documented in this encounterSelect Medical Specialty [facility] [place]07-22-2022 History of Present illness Narrative* Cortney Levin PT - 02/02/2022 2:14 PM EDT Episode Visit Count: 5 Therapist That Will Oversee The Plan Of Care: David Poon Start of Care Date: 01/12/22 Onset [...] 43 ALISIA Whiting PT documented in this encounterSelect Medical [facility] [place]07-21-2022 Miscellaneous Notes* Telephone Encounter - Mila Castro [...] weekly? * Telephone Encounter - Eulalia [facility] - 01/31/2022 4:32 PM EDT Patient has [...] patient. Eulalia Gaston [employer] documented in this encounterSelect Medical Specialty [facility] [place]07-19-2022 History of Present illness Narrative* Justina Escoto, PT - 01/30/2022 2:16 PM EDT Episode Visit Count: 4 Therapist That Will Oversee The Plan Of Care: David Poon Start of Care Date: 01/12/22 Onset [...] 43 ALISIA Whiting PT documented in this encounterSelect Medical [facility] [place]07-12-2022 Miscellaneous Notes* Telephone Encounter - Rebecca Gonzales [...] you. Rebecca Gonzales RN documented in this encounterSelect Medical Specialty [facility] [place]07-12-2022 History of Present illness Narrative* Chiki Byrd, PT - 01/23/2022 3:25 PM EDT Episode Visit Count: 2 Therapist That Will Oversee The Plan Of Care: David Poon Start of Care Date: 01/12/22 Onset [...] 45 ALISIA Whiting PT documented in this encounterSelect Medical [facility] [place]07-08-2022 Miscellaneous Notes* Telephone Encounter - Maggy Hubbard [...] on driving. Please advise. documented in this encounterSelect Medical Specialty [facility] [place]07-01-2022 History of Present illness Narrative* David Poon, PT - 01/12/2022 12:22 PM EDT Episode Visit Count: 1 Therapist That Will Oversee The Plan Of Care: David Poon Start of Care Date: 01/12/22 Onset [...] of Care: created on 01/12/22 through 03/15/22 [place] in home exercise program. Patient will demonstrate [...] Planned: 16 Planned Treatment Interventions: Therapeutic exercise (88281);Neuromuscular re- education (04152);Gait Training (17249);Patient/Family/Caregiver Education PLAN FOR NEXT VISIT: Review HEP [...] 20 Total Treatment Time Minutes (timed/untimed): 42 David Poon PT documented in this encounterSelect Medical [facility] [place]07-01-2022 Miscellaneous Notes* Telephone Encounter - Ewa Andino [...] review when he is back in office Eaw Andino Ma * Telephone Encounter - Roselia [...] Pending consult. Please advise documented in this encounterSelect Medical Specialty [facility] [place]06-29-2022 Miscellaneous Notes* Telephone Encounter - Mila Sharma [...] his syncope/collapse. Thank you! documented in this encounterSelect Medical Specialty [facility] [place]06-29-2022 Miscellaneous Notes* Result QuickNote - Justina Monique APRN.CNP - 01/10/2022 11:33 AM EDT Please call patient and notify him. Echocardiogram is stable. Valve replacement function is stable.No cardiac structure/function changes to explain his syncope/collapse. Thank you! documented in this [facility]06-24[facility] History of Present illness Narrative* Jojo Kaur [...] shared medical record. REFERRING PHYSICIAN: Abdulaziz Caldera [address] [facility] [address] Accompanied by: Spouse ASSESSMENT: 76 year old [...] of folllow up after hospitalization in [facility]. he was admitted because of syncopal [...] covid hit they went to [facility] and was staying in the house by [...] delayed closure on 05/28/18. Dr. Obregon at [facility] COLONOSCOPY 10/10/2021 repeat in 3 years [...] by mouth once daily. blood sugar diagnostic ([employer] ULTRA TEST) test strip Test blood sugar(s) [...] gait ,unsteady Cannot tandem Jojo Kaur M.D. [facility] [place] Department of Neurology January 05, 2022 Total [...] lights on at night. documented in this encounterSelect Medical Specialty [facility] [place]06-21-2022 Miscellaneous Notes* Telephone Encounter - Justina Garcia LPN - 01/02/2022 8:06 AM EDT I spoke to and informed him of Justina's response to lipid panel results. Patient voiced understanding. Justina Garcia LPN * Telephone Encounter - Justina Garcia LPN - 01/02/2022 7:43 AM EDT ----- Message from Justina Monique APRN.SUPERVISOR [employer] sent at 01/02/2022 7:38 AM EDT ----- Please call patient and notify him cholesterol has good control. Thank you! documented in this encounterSelect Medical [facility] [place]06-20-2022 History of Present illness Narrative* Abdulaziz Caldera MD - 01/01/2022 10:20 AM EDT Chief Complaint Patient presents with: Hospital Follow Up: [facility] discharged 12/29/21 HPI Richard Roy is a 76 year old male who presents here today for Hospital Discharge Follow up. Accompanied today by his . Patient admitted to [facility] from 12/27 to 12/29 after presenting to the [facility] ED after being found slumped over his tractor at home earlier in the afteernoon. Had been working outside for unknown period of time. Had only eaten cookies and milk that day. Heat index over 100. Back to baseline at the time of evaluation by hospitalist at [facility]. Found to have leukocytosis at [place] [facility] and elevated lactic acid level. Noted [...] echo since it was not completed at [facility]. No other changes to regimen. 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 Dr. Obregon at [facility] COLONOSCOPY 10/10/2021 repeat in 3 years [...] SCRN Abdulaziz Caldera MD documented in this encounterSelect Medical [facility] [place]06-20-2022 Instructions* Patient Instructions* Justina Monique APRN.SUPERVISOR [employer] - 01/01/2022 9:05 AM EDT High Blood [...] risk for high blood pressure. Developed by [employer]. Published by [employer]. Copyright 2014 [employer] and/or one of its subsidiaries. All rights reserved. 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 Dr. Obregon at [facility] COLONOSCOPY 10/10/2021 repeat in 3 years [...] daily. 90 tablet 3 blood sugar diagnostic ([employer] ULTRA TEST) test strip Test blood sugar(s) [...] POSIFLUSH) 10 mL INTRAVENOUS DIRECTED PRN Justina Monique APRN.[place] Review of Systems Constitutional: Negative for chills, [...] Peak Flow Date and Time PF Resp 01/01/22 0855 -- 18 Last 2 Encounter Wt Readings: [...] MRI of his head CAD -MILD on [facility] 2004 -stress testing 2013 with no [...] 01, 2022, 8:57 AM documented in this encounter[facility] [place] Note. MICRO - Microbiology PROCEDURE: Blood Culture (bacterial) [*1] SOURCE: Blood BODY SITE: COLLECTED DATE/TIME: 12/27/2021 17:43 EDT RECEIVED DATE/TIME: 12/28/2021 14:37 EDT START DATE/TIME: 12/28/2021 14:37 EDT FREE TEXT SOURCE: FINAL REPORTS Final Report [] Verified Date/Time/Personnel: 12/31/2021 07:29 EDT Staphylococcus epidermidis Isolated from anaerobe bottle only. Refer to previous culture for susceptibility. [id number] PRELIMINARY REPORTS Preliminary Report [] Verified Date/Time/Personnel: 12/30/2021 09:39 EDT Staphylococcus epidermidis Isolated from anaerobe bottle only. Refer to previous culture for susceptibility. [id number] Preliminary Report [] Verified Date/Time/Personnel: 12/28/2021 15:59 EDT Culture has been received in lab and is no growth to date. Routine cultures are held for 5 days. STAINS GSANA [] Verified Date/Time/Personnel: 12/29/2021 14:08 EDT Gram Positive Cocci in clusters Performing Locations *1: This test was performed at: [address], [facility] , [facility] ([place])12-31-2021 Note. MICRO - Microbiology PROCEDURE: [...] Locations *1: This test was performed at: [facility], [address] [place] [address], [id number] , [facility] ([place]12-27-2021 SARS-CoV-2 (COVID-19) RNA ANGELY+probe Ql (Nph)Positive 2 *ABN* (12/27/21 5:43 PM)AO Auto Urine SSComment on above:Result Comment: positive covid cvrb tatianna ruthr Evaluation + Plan note Diagnostic Tests Pending * Urinalysis 12/27/21 * Blood Culture (bacterial) 12/27/21 * Blood Culture (bacterial) 12/27/21 [facility] 06-02-2022 History of Present illness Narrative* Abdulaziz Caldera MD - 12/14/2021 3:13 PM EDT Chief Complaint Patient presents with: Covid Follow Up HPI Richard Roy is a 76 year old male who presents here today for Above Complaints.. Patient positive for COVID in the [facility] ER last week on 12/06. 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 Dr. Obregon at [facility] COLONOSCOPY 10/10/2021 repeat in 3 years [...] by mouth once daily. blood sugar diagnostic ([employer] ULTRA TEST) test strip Test blood sugar(s) [...] detail. Abdulaziz Caldera MD documented in this encounterSelect [facility] [place]-27-[facility] History of Present illness Narrative* Abdulaziz Caldera [...] today for Above Complaints.. Patient evaluated at [facility] ER on 12/06 for complaint of generalized weakness, cough, and feeling off balance and developed cough which started on 12/04. Denied other COVID symptoms at that time. Lab workup in the ER was unremarkable aside from positive COVID test and INR of 3.3. UA unremarkable. CXR showed some ill defined densities in RLL which was likely 2/2 COVID infection. 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 Dr. Obregon at [facility] COLONOSCOPY 10/10/2021 repeat in 3 years [...] by mouth once daily. blood sugar diagnostic ([employer] ULTRA TEST) test strip Test blood sugar(s) [...] these interactions. Not interested in driving to [facility] for IV ab. Since his symptoms are mild, he would prefer to rest at home. Discussed risks and benefits of treatment and that he is high risk for severe infection. Red flags for re-assessment reviewed with patient in detail. I spent a total of 25 minutes on the date of the service which included preparing to see the patient, [id number] patient care, completing clinical documentation, obtaining and/or reviewing separately obtained history, performing a medically appropriate examination, counseling and educating the pat ient/family/caregiver and ordering medications, tests, or procedures. Abdulaziz Caldera MD documented in this encounterSelect [facility] [place]05-27-2022 Miscellaneous Notes* Telephone Encounter - Abdulaziz Caldera [...] express care online. * Telephone Encounter - David Martinez Pss - 12/08/2021 2:16 PM EDT Patient called stating he was at [facility] ER on 12/06. Tested positive for covid. Patient was informed tocontact the office within 5 days to inform. Please advise patient when he can be seen in office. documented in this encounterSelect [facility] [place]05-09-2022 Miscellaneous Notes* Telephone Encounter - Eulalia Pedroza - 11/20/2021 9:49 AM EDT Patient has been identified by name and date of : Yes Pending Prescriptions Disp Refills METFORMIN ER 500 MG 24 HR TABLET,EXTENDED RELEASE Sig: Take 1 tablet by mouth daily with breakfast. NUHA: No OMAR-09/06/21 Labs-08/30/21 NOV-03/07/22 RX INSTRUCTIONS: Patient aware RX will be sent to pharmacy. No need to notify patient. [facility] documented in this encounterSelect Medical [facility] [place]04-11-2022 Instructions* Patient Instructions* Marcella aPrk PA-C - 10/23/2021 1:25 PM EDT -Recommend daily fiber supplement and plenty of fluids The following instructions are important for you related to your office visit today with the [facility]. INSTRUCTIONS FOR DIVERTICULA I [...] you should contact our office immediately @ [phone] and ask to be transferred to the General Surgery department. The following instructions are important for you related to your office visit today with the [facility]. INSTRUCTIONS FOLLOWING A POLYP [...] you should contact our office immediately @ [phone] and ask to be transferred to the General Surgery department. documented in this encounterSelect [facility] [place]04-11-2022 History of Present illness Narrative* Marcella Park PA-C - 10/23/2021 1:09 PM EDT FOLLOW UP VISIT - ENDOSCOPY NAME: Richard Bonilla [facility] NO.: [id number] DATE OF SERVICE: 10/23/2021 : 1945 REFERRING [...] which included preparing to see the patient, [id number] patient care, completing clinical documentation, obtaining and/or reviewing separately obtained history, counseling and educating the patient/family/caregiver, communicating with other HCPs (not separately reported), independently interpreting results (not separately reported) and communicating results to the patient/family/caregiver. Marcella Park PA-C documented in this encounterSelect Medical [facility] [place]03-29-2022 Nurse Note* Caroline Larkin RN - 10/10/2021 [...] answered. 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 Dr. Obregon at [facility] COLONOSCOPY FLX DX W/COLLJ SPEC WHEN [...] by mouth once daily. blood sugar diagnostic ([employer] ULTRA TEST) test strip Test blood sugar(s) [...] entered by the nurse and reviewed by nv Nursing Notes: Cortney Starr LPN 08/16/2021 8:38 [...] patient was offered a surgery/procedure at a [facility]. 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 Patient aware RX will be sent to pharmacy. No need to notify patient. Violette Lockhart documented in this encounterSelect [facility] [place]03-23-2022 Miscellaneous Notes* Telephone Encounter - Nelson Hernandez [...] advise, Halima Diaz RN documented in this encounterSelect [facility] [place]02-02-2022 Miscellaneous Notes* Telephone Encounter - Garland Vicente - 08/16/2021 9:36 AM EST 10-10-2021 [facility] documented in this encounterSelect [facility] [place]01-13-2022 NoteHNO ID: [id number] Author: REY Burt Service: Radiology Author Type: Handkerchief Folder Type: Progress Notes Filed: 07/27/2021 10:50 AM [...] Roy DATE: July 27, 2021 TIME: 10:49 [place] [id number] History of Past illness Narrative* Problem Noted [...] of this encounter (statuses as of 10/04/2021) [facility] [place] History of Past illness Narrative* Problem Noted [...] of this encounter (statuses as of 10/05/2021) [facility] [place] History of Past illness Narrative* Problem Noted [...] of this encounter (statuses as of 10/11/2021) [facility] [place] History of Past illness Narrative* Problem Noted [...] of this encounter (statuses as of 10/16/2021) [facility] [place] History of Past illness Narrative* Problem Noted [...] of this encounter (statuses as of 10/27/2021) [facility] [place] History of Past illness Narrative* Problem Noted [...] of this encounter (statuses as of 11/20/2021) [facility] [place] History of Past illness Narrative* Problem Noted [...] of this encounter (statuses as of 12/12/2021) [facility] [place] History of Past illness Narrative* Problem Noted [...] of this encounter (statuses as of 12/13/2021) [facility] [place] History of Past illness Narrative* Problem Noted [...] of this encounter (statuses as of 12/14/2021) [facility] [place] History of Past illness Narrative* Problem Noted [...] of this encounter (statuses as of 01/01/2022) [facility] [place] History of Past illness Narrative* Problem Noted [...] of this encounter (statuses as of 01/02/2022) [facility] [place] History of Past illness Narrative* Problem Noted [...] of this encounter (statuses as of 01/02/2022) [facility] [place] History of Past illness Narrative* Problem Noted [...] of this encounter (statuses as of 01/06/2022) [facility] [place] History of Past illness Narrative* Problem Noted [...] of this encounter (statuses as of 01/10/2022) [facility] [place] History of Past illness Narrative* Problem Noted [...] of this encounter (statuses as of 01/11/2022) [facility] [place] History of Past illness Narrative* Problem Noted [...] of this encounter (statuses as of 01/12/2022) [facility] [place] History of Past illness Narrative* Problem Noted [...] of this encounter (statuses as of 01/12/2022) [facility] [place] History of Past illness Narrative* Problem Noted [...] of this encounter (statuses as of 01/19/2022) [facility] [place] History of Past illness Narrative* Problem Noted [...] of this encounter (statuses as of 01/23/2022) [facility] [place] History of Past illness Narrative* Problem Noted [...] of this encounter (statuses as of 01/25/2022) [facility] [place] History of Past illness Narrative* Problem Noted [...] of this encounter (statuses as of 01/30/2022) [facility] [place] History of Past illness Narrative* Problem Noted [...] of this encounter (statuses as of 02/01/2022) [facility] [place] History of Past illness Narrative* Problem Noted [...] of this encounter (statuses as of 02/02/2022) [facility] [place] of Past illness Narrative* Problem Noted [...] of this encounter (statuses as of 02/02/2022) [facility] [place] of [facility] illness Narrative* Problem Noted [...] of this encounter (statuses as of 02/06/2022) [facility] [place] of [facility] illness Narrative* Problem Noted [...] of this encounter (statuses as of 02/09/2022) [facility] [place] of [facility] illness Narrative* Problem Noted [...] of this encounter (statuses as of 02/14/2022) [facility] [place] of [facility] illness Narrative* Problem Noted [...] of this encounter (statuses as of 02/26/2022) [facility] [place] of [facility] illness Narrative* Problem Noted [...] of this encounter (statuses as of 03/02/2022) [facility] [place] of [facility] Narrative* Problem Noted [...] of this encounter (statuses as of 03/05/2022) [facility] [place] of [facility] illness Narrative* Problem Noted [...] of this encounter (statuses as of 03/07/2022) [facility] [place] of [facility] Narrative* Problem Noted [...] of this encounter (statuses as of 03/08/2022) [facility] [place] of [facility] Narrative* Problem Noted [...] of this encounter (statuses as of 03/09/2022) [facility] [place] of [facility] Narrative* Problem Noted [...] of this encounter (statuses as of 03/12/2022) [facility] [place] of [facility] Narrative* Problem Noted [...] of this encounter (statuses as of 03/16/2022) [facility] [place] Narrative* Problem Noted [...] of this encounter (statuses as of 03/23/2022) [facility] [place] Narrative* Problem Noted [...] of this encounter (statuses as of 04/03/2022) [facility] [place] Narrative* Problem Noted [...] of this encounter (statuses as of 04/04/2022) [facility] [place] Narrative* Problem Noted [...] of this encounter (statuses as of 04/06/2022) [facility] [place] Narrative* Problem Noted [...] of this encounter (statuses as of 04/17/2022) [facility] [place] Narrative* Problem Noted [...] of this encounter (statuses as of 04/17/2022) [facility] [place] Narrative* Problem Noted [...] of this encounter (statuses as of 04/19/2022) [facility] [place] Narrative* Problem Noted [...] of this encounter (statuses as of 05/16/2022) [facility] [place] Narrative* Problem Noted [...] of this encounter (statuses as of 06/25/2022) [facility] [place] Narrative* Problem Noted [...] of this encounter (statuses as of 07/14/2022) [facility] [place] Narrative* Problem Noted [...] of this encounter (statuses as of 07/15/2022) [facility] [place] Narrative* Problem Noted [...] of this encounter (statuses as of 07/18/2022) [facility] [place] Narrative* Problem Noted [...] of this encounter (statuses as of 07/18/2022) [facility] [place] Narrative* Problem Noted [...] of this encounter (statuses as of 07/19/2022) [facility] [place] Narrative* Problem Noted [...] of this encounter (statuses as of 07/20/2022) [facility] [place] Narrative* Problem Noted [...] of this encounter (statuses as of 07/25/2022) [facility] [place] Narrative* Problem Noted [...] of this encounter (statuses as of 07/26/2022) [facility] [place] Narrative* Problem Noted [...] of this encounter (statuses as of 07/27/2022) [facility] [place] Narrative* Problem Noted [...] of this encounter (statuses as of 07/31/2022) [facility] [place] Narrative* Problem Noted [...] of this encounter (statuses as of 08/06/2022) [facility] [place] Narrative* Problem Noted [...] of this encounter (statuses as of 08/07/2022) [facility] [place] Narrative* Problem Noted [...] of this encounter (statuses as of 08/09/2022) [facility] [place] Narrative* Problem Noted [...] of this encounter (statuses as of 08/14/2022) [facility] [place] Narrative* Problem Noted [...] of this encounter (statuses as of 08/16/2022) [address] History of Past illness Narrative* Problem [...] of this encounter (statuses as of 08/28/2022) [address]13[address] History of Past illness Narrative* Problem [...] of this encounter (statuses as of 09/07/2022) [facility] [place] Narrative* Problem Noted [...] of this encounter (statuses as of 09/09/2022) [facility] [place] of [facility] Narrative* Problem Noted [...] of this encounter (statuses as of 09/25/2022) [facility] [place] of [facility] illness Narrative* Problem Noted [...] of this encounter (statuses as of 10/23/2022) [facility] [place] of [facility] Narrative* Problem Noted [...] of this encounter (statuses as of 11/20/2022) [facility] [place] of [facility] Narrative* Problem Noted [...] of this encounter (statuses as of 11/20/2022) [facility] [place] Narrative* Problem Noted [...] of this encounter (statuses as of 12/13/2022) [facility] [place] of [facility] Narrative* Problem Noted [...] of this encounter (statuses as of 12/14/2022) [facility] [place] of [facility] Narrative* Problem Noted [...] of this encounter (statuses as of 12/18/2022) [facility] [place] of Past illness Narrative* Problem Noted [...] of this encounter (statuses as of 12/25/2022) [facility] [place] of [facility] Narrative* Problem Noted [...] of this encounter (statuses as of 12/27/2022) [facility] [place] of [facility] Narrative* Problem Noted [...] of this encounter (statuses as of 12/31/2022) [facility] of [facility] Narrative* Problem Noted [...] of this encounter (statuses as of 01/03/2023) [facility] [place] History of Past illness Narrative* Problem Noted [...] of this encounter (statuses as of 01/04/2023) [facility] [place] History of Past illness Narrative* Problem Noted [...] of this encounter (statuses as of 01/04/2023) [facility] [place]04-13[facility]2015 History of Past illness Narrative* Problem Noted [...] of this encounter (statuses as of 01/25/2023) [facility] [place] History of Past illness Narrative* Problem Noted [...] of this encounter (statuses as of 01/29/2023) [facility] Diagnosis Type 2 diabetes mellitus with diabetic neuropathy, with long-term current use of insulin (HCC) Status post aortic valve repair Other postprocedural status Chronic anticoagulation Long-term (current) use of anticoagulants documented [facility] this encounter [facility]* Diagnosis Colon cancer screening Special screening for malignant neoplasms, colon documented in this encounter [facility]* Diagnosis Colon cancer screening- Primary Special screening for malignant neoplasms, colon documented in this encounter [facility]* Diagnosis Diverticulosis- Primary Diverticulosis of colon (without mention of hemorrhage) Cecal polyp documented in this encounter [facility] [place] noteNo assessment information availableWClermont [facility] Hospital Work Phone: Evaluation note* Diagnosis COVID-19- Primary documented in this encounter [facility]* Diagnosis COVID-19- Primary [facility] this encounter [facility] Diagnosis Onset Date Resolution Status Acute dehydration acute ANTHONY (acute kidney injury) ac derek Heat exhaustion acute Hyperkalemia acute Lactic acidosis acute Leukocytosis acute [facility] Work Phone: Evaluation note* Diagnosis Hyperlipidemia with target LDL less than 100- Primary Other and unspecified hyperlipidemia Primary hypertension Unspecified essential hypertension Thoracic aortic aneurysm without rupture (HCC) Thoracic aneurysm without mention of rupture Coronary artery disease involving [place] coronary artery of [place] heart without angina pectoris Syncope, unspecified syncope type Obesity, Class II, BMI 35-39.9 Obesity, unspecified documented in this encounter [facility] note* Diagnosis Syncope and collapse- Primary Altered mental status, unspecified altered mental status type Urinary incontinence, unspecified type Benign prostatic hyperplasia with nocturia Nocturia Vitamin D deficiency, unspecified Wound of left lower extremity, initial encounter Encounter for screening for malignant neoplasm of prostate Special screening for malignant neoplasm of prostate documented in this encounter [facility] note* Diagnosis Abnormality of gait due to impairment of balance- Primary Altered mental status, unspecified altered mental status type [facility]* Diagnosis Chronic anticoagulation Long-term (current) use of anticoagulants Thoracic aortic aneurysm without rupture (HCC) Thoracic aneurysm without mention of rupture Status post aortic valve repair Other postprocedural status [facility]* Diagnosis Type 2 diabetes mellitus with diabetic neuropathy, with long-term current use of insulin (HCC)- Primary [facility]* Diagnosis Abnormality of gait due to impairment of balance- Primary [facility]* Diagnosis Abnormality of gait due to impairment of balance- Primary [facility]* Diagnosis Vitamin D deficiency Unspecified vitamin D deficiency documented [facility]* Diagnosis Abnormality of gait due to impairment of balance- Primary [facility]* Diagnosis Vitamin D deficiency Unspecified vitamin D deficiency [facility]* Diagnosis Type 2 diabetes mellitus with stage 3 chronic kidney disease, with long-term current use of insulin (HCC) [facility]* Diagnosis Abnormality of gait due to impairment of balance- Primary [facility]* Diagnosis Type 2 diabetes mellitus with diabetic neuropathy, with long-term current use of insulin (HCC) documented in this encounter [facility]* Diagnosis Abnormality of gait due to impairment of balance- Primary documented in this encounter [facility]* Diagnosis Abnormality of gait due to impairment of balance- Primary documented in this encounter [facility]* Diagnosis Onset Date Resolution Status Acute dehydration resolved Heat exhaustion resolved [facility] Work Phone: Evaluation note* Diagnosis Abnormality of gait due to impairment of balance- Primary documented in this encounter [facility]* Diagnosis Status post aortic valve repair Other postprocedural status Chronic anticoagulation Long-term (current) use of anticoagulants documented in this encounter [facility]* Diagnosis Generalized weakness- Primary Other malaise and fatigue Supratherapeutic INR Abnormal coagulation profile ANTHONY (acute kidney injury) ([facility]) Acute kidney failure, unspecified documented in this encounter [facility]* Diagnosis Abnormality of gait due to impairment of balance- Primary documented in this encounter [facility]* Diagnosis Abnormality of gait due to impairment of balance- Primary documented in this encounter [facility] [place]* Diagnosis Urinary incontinence, unspecified type documented in this encounter [facility]* Diagnosis Abnormality of gait due to impairment of balance- Primary documented in this encounter [facility]* Diagnosis Onychomycosis- Primary Dermatophytosis of nail Pain in toe of left foot Pain in limb Amputated toe of right foot ([facility]) Diabetic polyneuropathy associated with type 2 diabetes mellitus (HCC) documented in this encounter [facility]* Diagnosis Generalized weakness- Primary Other malaise and fatigue Encounter for immunization Need for other specified prophylactic vaccination against single bacterial disease Mild depression Depressive disorder, not elsewhere classified documented in this encounter [facility]* Diagnosis Generalized anxiety disorder- Primary Polyneuropathy Unspecified hereditary and idiopathic peripheral neuropathy documented in this encounter [facility]* Diagnosis Urinary incontinence, unspecified type documented in this encounter [facility]* Diagnosis Onset Date Resolution Status History of pulmonary embolism acute History of thoracic aortic aneurysm repair acute NSTEMI, initial episode of care acute HTN (hypertension) chronic [facility] Work Phone: Evaluation note* Diagnosis Dizziness- Primary Dizziness and giddiness Chronic frontal sinusitis documented in this encounter [facility] note* Diagnosis Type 2 diabetes mellitus with diabetic neuropathy, with long-term current use of insulin (HCC)- Primary Diabetic polyneuropathy associated with type 2 diabetes mellitus (HCC) NSTEMI (non-ST elevated myocardial infarction) ([facility]) Acute myocardial infarction, subendocardial infarction, episode of care unspecified Essential hypertension, benign Hyperlipidemia with target LDL less than 100 Other and unspecified hyperlipidemia Status post aortic valve repair Other postprocedural status Chronic anticoagulation Long-term (current) use of anticoagulants Urinary incontinence, unspecified type Benign prostatic hyperplasia with weak urinary stream Acquired absence of right great toe ([facility]) Lower limb amputation, great toe Type 2 diabetes mellitus with stage 3a chronic kidney disease, with long-term current use of insulin ([facility]) 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, macular edema presence unspecified ([facility]) documented in this encounter [facility] [place]* Diagnosis Driving safety issue- Primary Other specified personal history presenting hazards to health documented in this encounter [facility] [place]* Diagnosis Onychomycosis- Primary Dermatophytosis of nail Pain in toe of left foot Pain in limb Amputated toe of right foot ([facility]) Diabetic polyneuropathy associated with type 2 diabetes mellitus ([facility]) documented in this encounter [facility] [place]* Diagnosis Spinal stenosis, lumbar region, without neurogenic claudication- Primary Primary osteoarthritis of both knees Primary localized osteoarthrosis, lower leg documented in this encounter [facility] [place]* Diagnosis Spinal stenosis, lumbar region, without neurogenic claudication- Primary Primary osteoarthritis of both knees Primary localized osteoarthrosis, lower leg documented in this encounter [facility] [place]* Diagnosis Spinal stenosis, lumbar region, without neurogenic claudication- Primary Primary osteoarthritis of both knees Primary localized osteoarthrosis, lower leg documented in this encounter [facility] [place]* Diagnosis Spinal stenosis, lumbar region, without neurogenic claudication- Primary Primary osteoarthritis of both knees Primary localized osteoarthrosis, lower leg documented in this encounter [facility] [place]* Diagnosis Spinal stenosis, lumbar region, without neurogenic claudication- Primary Primary osteoarthritis of both knees Primary localized osteoarthrosis, lower leg documented in this encounter [facility] [place]* Diagnosis Spinal stenosis, lumbar region, without neurogenic claudication- Primary Primary osteoarthritis of both knees Primary localized osteoarthrosis, lower leg documented in this encounter [facility]* Diagnosis Onset Date Resolution Status Confusion acute Weakness acute [facility] Work Phone: Evaluation note* Diagnosis Onset Date Resolution Status Confusion acute Weakness acute ABLA (acute blood loss anemia) acute Acute encephalopathy acute Supratherapeutic INR acute Syncope acute Upper gastrointestinal bleeding acute Warfarin-induced coagulopathy acute [facility] Work Phone: Evaluation note* Diagnosis Onset Date Resolution Status Confusion acute Weakness acute ABLA (acute blood loss anemia) acute Acute encephalopathy acute Anemia acute History of pulmonary embolism acute History of thoracic aortic aneurysm repair acute Second degree AV block, Mobitz type II acute Supratherapeutic INR acute Syncope acute Upper gastrointestinal bleeding acute Valvular heart disease acute Warfarin-induced coagulopathy acute HTN (hypertension) chronic [facility] Work Phone: Evaluation note* Diagnosis Onset Date [...] type II acute Sick sinus syndrome acute [facility] Work Phone: Evaluation note* Diagnosis Onset Date [...] (INR) acute UTI (urinary tract infection) acute [facility] Work Phone: Evaluation note* Diagnosis Onset Date [...] UTI (urinary tract infection) acute Weakness acute [facility] Work Phone: Evaluation note* Diagnosis Onset Date [...] degree AV block, Mobitz type II chronic [facility] Work Phone: Evaluation note* Diagnosis Onset Date [...] Second degree AV block, Mobitz type II [facility] Work Phone: Evaluation note* Diagnosis Onset [...] Second degree AV block, Mobitz type II [facility] Work Phone: Evaluation note* Diagnosis Onset Date Resolution Status Presence of cardiac pacemaker acute Syncope acute Second degree AV block, Mobitz type II chronic Sick sinus syndrome chronic Atrial fibrillation acute HLD (hyperlipidemia) acute Presence of cardiac pacemaker acute HTN (hypertension) chronic Second degree AV block, Mobitz type II [facility] Work Phone: Evaluation note* Diagnosis Onset Date Resolution Status Atrial fibrillation acute HLD (hyperlipidemia) acute Presence of cardiac pacemaker acute HTN (hypertension) chronic Second degree AV block, Mobitz type II [facility] Work Phone: History and physical note Author Dr. Aly [facility] January 04, 2023 4:32pm Note Date/Time January 04, 2023 4:12 pm [facility] Medical Records Department [address] [place] [address] H&P Exam - Hospitalist 01/04/23 1607 MR#: [id number] Acct: [id number] Name: RICHARD ROY Rep #:[id number] : 1945 77 From: Karen Aly MD PCP: Dr. Luis Caldera MD Status :ADM LUIS ANGEL Location: [place] [address] HPI - General General Date of Admission: 01/04/23 Date of Service: 01/04/23 Chief Complaint: Confusion, falls. HPI Narrative The patient is a 77 y/o M w/ PMHx: AAA s/p repair, Hx COVID-19, Hx GI bleed, Valvular heart disease s/p AVR, HTN, HLD, VTE w/ Hx DVT/PE, Diabetes mellitus type II, Obesity who presents to the [facility] ED on 01/04/23 with history of [...] no acute intracranial abnormality, right maxillary sinusitis. [facility] Medical History Amputation of right great toe [...] 78.3 H, Lymph % (Auto) 12.8 L, Lea % (Auto) 5.9, Eos % (Auto) 1.7, [...] Sl. Cloudy, Urine pH 6.0, Ur Specific Wheeler 1.020, Urine Protein 15 H, Urine Glucose [...] type II, Obesity who presents to the [facility] ED on 01/04/23 with history of [...] 60 minutes. Charges/Coding Visit Charges Inpatient E&M: 63197 Init Hosp L2 01/04/23 1632 <Electronically signed by Karen Aly MD> Cosigner Signature (if applicable): CC: Dr. aKren Aly MD; Dr. Luis Caldera MD~ Signed [facility] Work Phone: Hospital course Narrative No data available for this section [facility] Hospital Discharge instructions No data available for this section [facility] Hospital Discharge instructions Additional Instructions Work-up [...] days of antibiotics please return for repeat evaluationWClerm[facility] Work Phone: Progress note No data available for this section [facility] Progress note Author Liu Friend [facility] January 26, 2023 3:50pm Note Date/Time January 26, 2023 3:50 pm [facility] Medical Records Department [address] [place] [address] Progress Note - GI 01/26/23 1549 MR#: [id number] Acct: [id number] Name: RICHARD ROY Rep #:[id number] : 1945 77 From: Liu Hackett DO PCP: Dr. Luis Caldera MD Status :ADM IN Location: [place] [address]- Subjective Subjective Patient is doing well today. [...] 78.4 H, Lymph % (Auto) 8.1 L, Lea % (Auto) 9.6, Eos % (Auto) 1.6, [...] Heart rate in 50s.. Discussed with the workers' compensation claims examiner. No chest pain or tightness. Physical exam [...] ensure healing. Charges/Coding Visit Charges Inpatient E&M: 69092 Subs Hosp L3 01/26/23 1550 <Electronically signed by Liu Friend DO> Cosigner Signature (if applicable): CC: ~ Signed [facility] Work Phone: Progress note Author Smith Leija [facility] February 13, 2023 3:58pm Note Date/Time February 13, 2023 3:5 8pm [facility] Medical Records Department [address] [place] [address] Progress Note - Infect Disease 02/13/23 1557 MR#: [id number] Acct: [id number] Name: RICHARD ROY Rep #:[id number] : 1945 77 From: Smith huang MD PCP: Dr. Luis Caldera MD Status :ADM IN Location: [place] [address] Physical Exam Narrative Feeling better, no fever, [...] Dr. Giraldo (2) Presence of cardiac pacemaker: 02/13/23 1558 <Electronically signed by Smith Leija MD> Cosigner Signature (if applicable): CC: ~ Signed [facility] Work Phone: Reason for referral (narrative)* Outpatient Procedure (Routine) - Closed Specialty Diagnoses / Procedures Referred By Contcarlos t Referred To Contact [facility] Diagnoses Colon cancer screening Procedures COLONOSCOPY SCREENING COLONOSCOPY FLX DX W/COLLJ SPEC WHEN PFEILEEND Marcella Park PA-C [address] [place] [address] [facility] [address] [address] Referral ID Status Reason Start Date Expiration Date V isits Requested Visits Authorized [id number] Closed Auto-Generate d Referral 08/16/2021 08/16/2022 1 1 [facility] for referral (narrative)* Outpatient Procedure (Routine) - Closed Specialty Diagnoses / Procedures Referred By Linn carrillo Referred To Contact [facility] Diagnoses Colon cancer screening Procedures COLONOSCOPY SCREENING COLONOSCOPY FLX DX W/COLLJ SPEC WHEN PFRMD Marcella Park PA-C [address] [place] [address] [facility] Disease [place] [id number] Referral ID Status Reason Start Date Expiration Date V isits Requested Visits Authorized [id number] Closed Auto-Generate d Referral 08/16/2021 08/16/2022 1 1 [facility] for referral (narrative)No reason for referral information availableWClermont County Hospital Work Phone: Reason for visit Narrative* Outpatient Procedure (Routine) - Closed Specialty Diagnoses / Procedures Referred By Contcarlos t Referred To Contact [facility] Diagnoses Colon cancer screening Procedures COLONOSCOPY SCREENING COLONOSCOPY FLX DX W/COLLJ SPEC WHEN PFRMD Marcella Park PA-C [address] [place] [address] [facility] [address] [place] [address] Referral ID Status Reason Start Date Expiration Date V isits Requested Visits Authorized [id number] Closed Auto-Generate d Referral 08/16/2021 08/16/2022 1 1 [facility] for visit Narrative* Outpatient Procedure (Routine) - Closed Specialty Diagnoses / Procedures Referred By Contac t [facility] Diagnoses Chronic anticoagulation Thoracic aortic aneurysm without rupture (HCC) Status post aortic valve repair Procedures ECHO TTE W/DOPPLER, Justina Arguelles, APICULTURIST.SUPERVISOR [employer] [address] [place] [address] 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 Advance Directive(s) 09/12/2021 7:14 AM Advance Directive Response Recorded Date/ Time Advance Directives Yes September 16 11:11pm Living Will No December 06, 2021 1 1:07pm Power of Slitter And Rewinder No December 06, 2021 11:07pm Advance Directive Response Recorded Date/ Time Name of Medical Power of Slitter And Rewinder Gena Roy December 27, 2021 10:36pm Advance Directives Yes September 16 11:11pm Living Will Yes December 27, 2021 10:36pm Power of Slitter And Rewinder Yes December 27 10:36pm Advance Directive Response Recorded Date/ Time Name of Medical Power of Slitter And Rewinder Gena Roy December 27, 2021 10:36pm Name of Medical Power of Slitter And Rewinder TEDDY ROY (SON ) March 02, 2022 2:34pm Advance Directives Yes September 16 11:11pm Living Will Yes March 02 2:34pm Power of Slitter And Rewinder Yes March 02, 2 022 2:34pm Advance Directive Response Recorded Date/ Time Name of Medical Power of Slitter And Rewinder teddy roy July 10, 2022 3:06am Advance Directives Yes September 16 10:11pm Living Will Yes July 10, 022 3:06am Power of Slitter And Rewinder Yes July 10, 2022 3:06am Advance Directive Response Recorded Date/ Time Name of Medical Power of Slitter And Rewinder ? January 04, 2023 11:15am Advance Directives Yes September 16 11:11pm Living Will Yes January 04, 2023 11:15am Power of Slitter And Rewinder Yes January 04 11:15am Advance Directive Response Recorded Date/ Time Name of Medical Power of Slitter And Rewinder Ciarra Roy (spouse), Teddy Roy (son) January 04, 2023 6:23pm Name of Medical Power of Slitter And Rewinder GENA KIRILL January 21, 2023 8:26am Advance Directives Yes September 16 11:11pm Living Will Yes January 21, 2023 8:26am Power of Slitter And Rewinder Yes January 21 8:26am Advance Directive Response Recorded Date/ Time Name of Medical Power of Slitter And Rewinder Ciarra Roy (spouse), Teddy Roy (son) January 04, 2023 6:23pm Name of Medical Power of Slitter And Rewinder Ciarra Roy January 21, 2023 12:23pm Advance Directives Yes September 16 11:11pm Living Will Yes January 21, 2023 12:23pm Power of Slitter And Rewinder Yes January 21 12:23pm Advance Directive Response Recorded Date/ Time Name of Medical Power of Slitter And Rewinder Ciarra Roy (spouse), Teddy Roy (son) January 04, 2023 6:23pm Name of Medical Power of Slitter And Rewinder Ciarra Roy (spouse) January 27, 2023 6:04pm Advance Directives Yes September 16 11:11pm Living Will Yes January 27, 2023 6:04pm Power of Slitter And Rewinder Yes January 27 6:04pm Name of Medical Power of Slitter And Rewinder Ciarra Roy January 21, 2023 12:23pm Advance Directive Response Recorded Date/ Time Name of Medical Power of Slitter And Rewinder Ciarra Roy (spouse), Teddy Roy (son) January 04, 2023 6:23pm Name of Medical Power of Slitter And Rewinder Ciarra Kirill January 27, 2023 9:40pm Name of Medical Power of Slitter And Rewinder Ciarra Robison, February 10, 2023 9:27pm Advance Directives Yes September 16 11:11pm Living Will Yes February 10, 2023 9:27pm Power of Slitter And Rewinder Yes February 10 9:27pm Name of Medical Power of Slitter And Rewinder Ciarra Kirill January 21, 2023 12:23pm Advance Directive Response Recorded Date/ Time Name of Medical Power of Slitter And Rewinder Ciarra Roy (spouse), Teddy Roy (son) January 04, 2023 6:23pm Name of Medical Power of Slitter And Rewinder Ciarra Kirill January 27, 2023 9:40pm Name of Medical Power of Slitter And Rewinder Ciarra Robison, February 10, 2023 9:27pm Name of Medical Power of Slitter And Rewinder Ciarra MEEKS, February 11, 2023 4:25pm Advance Directives Yes September 16 11:11pm Living Will Yes February 11, 2023 4:25pm Power of Slitter And Rewinder Yes February 11 4:25pm Name of Medical Power of Slitter And Rewinder Ciarra Regant January 21, 2023 12:23pm Advance Directive Response Recorded Date/ Time Name of Medical Power of Slitter And Rewinder Ciarra Roy (spouse), Teddy Roy (son) January 04, 2023 6:23pm Name of Medical Power of Slitter And Rewinder Ciarra Regant January 27, 2023 9:40pm Name of Medical Power of Slitter And Rewinder Ciarra Robison, February 10, 2023 9:27pm Name of Medical Power of Slitter And Rewinder PO[place], February 11, 2023 8:40pm Advance Directives Yes September 16 11:11pm Living Will Yes February 11, 2023 8:40pm Power of Slitter And Rewinder Yes February 11 8:40pm Name of Medical Power of Slitter And Rewinder Ciarra Regant January 21, 2023 12:23pm Advance Directive Response Recorded Date/ Time Name of Medical Power of Slitter And Rewinder Ciarra Roy January 27, 2023 9:40pm Name of Medical Power of Slitter And Rewinder Ciarra Robison, February 10, 2023 9:27pm Name of Medical Power of Slitter And Rewinder Ciarra MEEKS, w david February 11, 2023 8:40pm Advance Directives Yes September 16 11:11pm Living Will Yes February 11, 2023 8:40pm Power of Slitter And Rewinder Yes February 11 8:40pm Name of Medical Power of Slitter And Rewinder Ciarra Roy January 21, 2023 12:23pm Advance Directive Response Recorded Date/ Time Name of Medical Power of Slitter And Rewinder Ciarra Roy January 27, 2023 8:40pm Name of Medical Power of Slitter And Rewinder Ciarra Robison, February 10, 2023 8:27pm Name of Medical Power of Slitter And Rewinder Ciarra MEEKS, w david February 11, 2023 7:40pm Advance Directives Yes September 16 10:11pm Living Will Yes February 11, 2023 7:40pm Power of Slitter And Rewinder Yes February 11 7:40pm Name of Medical Power of Slitter And Rewinder Ciarra Roy January 21, 2023 11:23am Advance Directive Response Recorded Date/ Time Name of Medical Power of Slitter And Rewinder Ciarra Roy January 27, 2023 8:40pm Name of Medical Power of Slitter And Rewinder Ciarra Robison, February 10, 2023 8:27pm Name of Medical Power of Slitter And Rewinder Ciarra MEEKS, w david February 11, 2023 7:40pm Advance Directives Yes September 16 10:11pm Living Will No May 30 023 11:36am Power of Slitter And Rewinder No May 30, 2023 11:36am Advance Directive Response Recorded Date/ Time Advance Directives Yes September 16 10:11pm Living Will No May 30 023 11:36am Power of Slitter And Rewinder No May 30, 2023 11:36am Advance Directive Response Recorded Date/ Time Advance Directives Yes September 16 11:11pm Living Will No May 30 023 12:36pm Power of Slitter And Rewinder No May 30, 2023 12:36pm Advance Directive Response Recorded Date/ Time Advance Directives Yes September 16 11:11pm Advance Directive Response Recorded Date/ Time Do you have a Healthcare Power of Slitter And Rewinder? Yes February 02, 2025 7:49pm Advance Directives Yes September 16 11:11pm Advance Directive Response Recorded Date/ Time Do you have a Healthcare Power of Slitter And Rewinder? Yes February 03, 2025 1:28am Advance Directives Yes September 16 11:11pm Medications [...] day post implant check RECURRENT GI BLEED HALFWAY LABWORK AMS BACTEREMIA, CYSTITIS Urinary tract infection [...] day post implant check RECURRENT GI BLEED HALFWAY LABWORK AMS LAB WORK BACTEREMIA, CYSTITIS Urinary tract infection BACTEREMIA, CYSTITIS BACTEREMIA, CYSTITIS LAB WORK LAB WORK 1 wk wound check LABWORK LABWORK LABWORK LABWORK LABWORK HALFWAY LABWORK LABWORK 6 wk post PPM implant [...] day post implant check RECURRENT GI BLEED HALFWAY LABWORK AMS LAB WORK BACTEREMIA, CYSTITIS Urinary tract infection BACTEREMIA, CYSTITIS BACTEREMIA, CYSTITIS LAB WORK LAB WORK 1 wk wound check LABWORK LABWORK LABWORK LABWORK LABWORK HALFWAY LABWORK LABWORK 6 wk post PPM implant f/u / KR @ 2p S/P PACER IMPLANT 6 wk fu / NAA @ 1:30 LABWORK HALFWAY LAB WORK HALFWAY LABWORK HALFWAY LAB WORK Reason for Visit Confusion Weakness [...] day post implant check RECURRENT GI BLEED HALFWAY LABWORK AMS LAB WORK BACTEREMIA, CYSTITIS Urinary tract infection BACTEREMIA, CYSTITIS BACTEREMIA, CYSTITIS LAB WORK LAB WORK 1 wk wound check LABWORK LABWORK LABWORK LABWORK LABWORK HALFWAY LABWORK LABWORK 6 wk post PPM implant f/u / KR @ 2p S/P PACER IMPLANT 6 wk fu / NAA @ 1:30 LABWORK HALFWAY LAB WORK HALFWAY LABWORK HALFWAY LAB WORK HALFWAY LAB WORK Reason for Visit Confusion Weakness [...] day post implant check RECURRENT GI BLEED HALFWAY LABWORK AMS LAB WORK BACTEREMIA, CYSTITIS Urinary tract infection BACTEREMIA, CYSTITIS BACTEREMIA, CYSTITIS LAB WORK LAB WORK 1 wk wound check LABWORK LABWORK LABWORK LABWORK LABWORK HALFWAY LABWORK LABWORK 6 wk post PPM implant f/u / KR @ 2p S/P PACER IMPLANT 6 wk fu / NAA @ 1:30 LABWORK HALFWAY LAB WORK HALFWAY LABWORK HALFWAY LAB WORK HALFWAY LAB WORK LABWORK Reason for Visit Acute [...] day post implant check RECURRENT GI BLEED HALFWAY LABWORK AMS LAB WORK BACTEREMIA, CYSTITIS Urinary tract infection BACTEREMIA, CYSTITIS BACTEREMIA, CYSTITIS LAB WORK LAB WORK 1 wk wound check LABWORK LABWORK LABWORK LABWORK LABWORK HALFWAY LABWORK LABWORK 6 wk post PPM implant f/u / KR @ 2p S/P PACER IMPLANT 6 wk fu / ANA @ 1:30 LABWORK HALFWAY LAB WORK HALFWAY LABWORK HALFWAY LAB WORK HALFWAY LAB WORK LABWORK LABWORK Reason for Visit [...] day post implant check RECURRENT GI BLEED HALFWAY LABWORK AMS LAB WORK BACTEREMIA, CYSTITIS Urinary tract infection BACTEREMIA, CYSTITIS BACTEREMIA, CYSTITIS LAB WORK LAB WORK 1 wk wound check LABWORK LABWORK LABWORK LABWORK LABWORK HALFWAY LABWORK LABWORK 6 wk post PPM implant f/u / KR @ 2p S/P PACER IMPLANT 6 wk fu / NAA @ 1:30 LABWORK HALFWAY LAB WORK HALFWAY LABWORK HALFWAY LAB WORK HALFWAY LAB WORK LABWORK LABWORK HALFWAY LAB WORK Reason for Visit HTN (hypertension) [...] day post implant check RECURRENT GI BLEED HALFWAY LABWORK AMS LAB WORK BACTEREMIA, CYSTITIS Urinary tract infection BACTEREMIA, CYSTITIS BACTEREMIA, CYSTITIS LAB WORK LAB WORK 1 wk wound check LABWORK LABWORK LABWORK LABWORK LABWORK HALFWAY LABWORK LABWORK 6 wk post PPM implant f/u / KR @ 2p S/P PACER IMPLANT 6 wk fu / NAA @ 1:30 LABWORK HALFWAY LAB WORK HALFWAY LABWORK HALFWAY LAB WORK HALFWAY LAB WORK LABWORK LABWORK HALFWAY LAB WORK Reason for Visit HTN (hypertension) [...] II Chief Complaint LABWORK LABWORK LABWORK LABWORK HALFWAY LABWORK LABWORK 6 wk post PPM implant f/u / KR @ 2p S/P PACER IMPLANT 6 wk fu / NAA @ 1:30 LABWORK HALFWAY LAB WORK HALFWAY LABWORK HALFWAY LAB WORK HALFWAY LAB WORK LABWORK LABWORK HALFWAY LAB WORK LABWORK Reason for Visit Presence of cardiac pacemaker Syncope Second degree AV block, Mobitz type II Sick sinus syndrome Atrial fibrillation HLD (hyperlipidemia) Presence of cardiac pacemaker HTN (hypertension) Second degree AV block, Mobitz type II Chief Complaint LABWORK HALFWAY LABWORK LABWORK 6 wk post PPM implant f/u / KR @ 2p S/P PACER IMPLANT 6 wk fu / NAA @ 1:30 LABWORK HALFWAY LAB WORK HALFWAY LABWORK HALFWAY LAB WORK HALFWAY LAB WORK LABWORK LABWORK HALFWAY LAB WORK HALFWAY LAB WORK LABWORK LABWORK Reason for Visit Presence of cardiac pacemaker Syncope Second degree AV block, Mobitz type II Sick sinus syndrome Atrial fibrillation HLD (hyperlipidemia) Presence of cardiac pacemaker HTN (hypertension) Second degree AV block, Mobitz type II Chief Complaint HALFWAY LABWORK LABWORK 6 wk post PPM implant f/u / KR @ 2p S/P PACER IMPLANT 6 wk fu / NAA @ 1:30 LABWORK HALFWAY LAB WORK HALFWAY LABWORK HALFWAY LAB WORK HALFWAY LAB WORK LABWORK LABWORK HALFWAY LAB WORK HALFWAY LAB WORK LABWORK HALFWAY LAB WORK LABWORK Reason for Visit Presence of cardiac pacemaker Syncope Second degree AV block, Mobitz type II Sick sinus syndrome Atrial fibrillation HLD (hyperlipidemia) Presence of cardiac pacemaker HTN (hypertension) Second degree AV block, Mobitz type II Chief Complaint LABWORK 6 wk post PPM implant f/u / KR @ 2p S/P PACER IMPLANT 6 wk fu / NAA @ 1:30 LABWORK HALFWAY LAB WORK HALFWAY LABWORK HALFWAY LAB WORK HALFWAY LAB WORK LABWORK LABWORK HALFWAY LAB WORK HALFWAY LAB WORK LABWORK HALFWAY LAB WORK LABWORK LABWORK Reason for Visit Presence of cardiac pacemaker Syncope Second degree AV block, Mobitz type II Sick sinus syndrome Atrial fibrillation HLD (hyperlipidemia) Presence of cardiac pacemaker HTN (hypertension) Second degree AV block, Mobitz type II Chief Complaint LABWORK 6 wk post PPM implant f/u / KR @ 2p S/P PACER IMPLANT 6 wk fu / NAA @ 1:30 LABWORK HALFWAY LAB WORK HALFWAY LABWORK HALFWAY LAB WORK HALFWAY LAB WORK LABWORK LABWORK HALFWAY LAB WORK HALFWAY LAB WORK LABWORK HALFWAY LAB WORK HALFWAY LABWORK LABWORK LABWORK Reason for Visit Presence of cardiac pacemaker Syncope Second degree AV block, Mobitz type II Sick sinus syndrome Atrial fibrillation HLD (hyperlipidemia) Presence of cardiac pacemaker HTN (hypertension) Second degree AV block, Mobitz type II Chief Complaint 6 wk post PPM implan t f/u / KR @ 2p S/P PACER IMPLANT 6 wk fu / NAA @ 1:30 LABWORK HALFWAY LAB WORK HALFWAY LABWORK HALFWAY LAB WORK HALFWAY LAB WORK LABWORK LABWORK HALFWAY LAB WORK HALFWAY LAB WORK LABWORK HALFWAY LAB WORK HALFWAY LABWORK LABWORK HALFWAY LAB WORK LABWORK Reason for Visit Presence of cardiac pacemaker Syncope Second degree AV block, Mobitz type II Sick sinus syndrome Atrial fibrillation HLD (hyperlipidemia) Presence of cardiac pacemaker HTN (hypertension) Second degree AV block, Mobitz type II Chief Complaint LABWORK HALFWAY LAB WORK HALFWAY LABWORK HALFWAY LAB WORK HALFWAY LAB WORK LABWORK LABWORK HALFWAY LAB WORK HALFWAY LAB WORK LABWORK HALFWAY LAB WORK HALFWAY LABWORK LABWORK HALFWAY LAB WORK LABWORK LABWORK LABWORK Chief Complaint HALFWAY LAB WOR K HALFWAY LABWORK HALFWAY LAB WORK HALFWAY LAB WORK LABWORK LABWORK HALFWAY LAB WORK HALFWAY LAB WORK LABWORK HALFWAY LAB WORK HALFWAY LABWORK LABWORK HALFWAY LAB WORK LABWORK LABWORK LABWORK LABWORK Chief Complaint HALFWAY LAB WOR K HALFWAY LAB WORK LABWORK LABWORK HALFWAY LAB WORK HALFWAY LAB WORK LABWORK HALFWAY LAB WORK HALFWAY LABWORK LABWORK HALFWAY LAB WORK LABWORK HALFWAY LAB WORK LABWORK LABWORK LABWORK Chief Complaint HALFWAY LAB WOR K LABWORK LABWORK HALFWAY LAB WORK HALFWAY LAB WORK LABWORK HALFWAY LAB WORK HALFWAY LABWORK LABWORK HALFWAY LAB WORK LABWORK HALFWAY LAB WORK LABWORK LABWORK LABWORK LABWORK Chief Complaint HALFWAY LAB WOR K LABWORK LABWORK HALFWAY LAB WORK HALFWAY LAB WORK LABWORK HALFWAY LAB WORK HALFWAY LABWORK LABWORK HALFWAY LAB WORK LABWORK HALFWAY LAB WORK LABWORK LABWORK LABWORK HALFWAY LABWORK LABWORK Chief Complaint LABWORK LABWORK HALFWAY LAB WORK HALFWAY LAB WORK LABWORK HALFWAY LAB WORK HALFWAY LABWORK LABWORK HALFWAY LAB WORK LABWORK HALFWAY LAB WORK LABWORK LABWORK LABWORK HALFWAY LABWORK LABWORK LABWORK Chief Complaint LABWORK HALFWAY LAB WORK HALFWAY LAB WORK LABWORK HALFWAY LAB WORK HALFWAY LABWORK LABWORK HALFWAY LAB WORK LABWORK HALFWAY LAB WORK LABWORK LABWORK LABWORK HALFWAY LABWORK LABWORK LABWORK LABWORK Chief Complaint HALFWAY LAB WOR K HALFWAY LAB WORK LABWORK HALFWAY LAB WORK HALFWAY LABWORK LABWORK HALFWAY LAB WORK LABWORK HALFWAY LAB WORK LABWORK LABWORK LABWORK HALFWAY LABWORK LABWORK LABWORK LABWORK LABWORK Chief Complaint HALFWAY LAB WOR K LABWORK HALFWAY LAB WORK HALFWAY LABWORK LABWORK HALFWAY LAB WORK LABWORK HALFWAY LAB WORK LABWORK LABWORK LABWORK HALFWAY LABWORK LABWORK LABWORK LABWORK LABWORK LABWORK Chief Complaint HALFWAY LAB WOR K LABWORK HALFWAY LAB WORK HALFWAY LABWORK LABWORK HALFWAY LAB WORK LABWORK HALFWAY LAB WORK LABWORK LABWORK LABWORK HALFWAY LABWORK LABWORK LABWORK LABWORK LABWORK LABWORK LABWORK Chief Complaint HALFWAY LAB WOR K LABWORK HALFWAY LAB WORK HALFWAY LABWORK LABWORK HALFWAY LAB WORK LABWORK HALFWAY LAB WORK LABWORK LABWORK LABWORK HALFWAY LABWORK LABWORK LABWORK LABWORK LABWORK LABWORK LABWORK LABWORK Chief Complaint HALFWAY LAB WOR K LABWORK HALFWAY LAB WORK HALFWAY LABWORK LABWORK HALFWAY LAB WORK LABWORK HALFWAY LAB WORK LABWORK LABWORK LABWORK HALFWAY LABWORK LABWORK LABWORK LABWORK LABWORK LABWORK LABWORK HALFWAY LAB WORK LABWORK Chief Complaint HALFWAY LAB WOR K LABWORK HALFWAY LAB WORK HALFWAY LABWORK LABWORK HALFWAY LAB WORK LABWORK HALFWAY LAB WORK LABWORK LABWORK LABWORK HALFWAY LABWORK LABWORK LABWORK LABWORK LABWORK LABWORK LABWORK HALFWAY LAB WORK LABWORK LABWORK 6 M FU Chief Complaint HALFWAY LAB WOR K HALFWAY LABWORK LABWORK HALFWAY LAB WORK LABWORK HALFWAY LAB WORK LABWORK LABWORK LABWORK HALFWAY LABWORK LABWORK LABWORK LABWORK LABWORK LABWORK LABWORK HALFWAY LAB WORK LABWORK LABWORK LABWORK 6 M FU Reason for Visit Atrial fibrillation HLD (hyperlipidemia) Presence of cardiac pacemaker HTN (hypertension) Second degree AV block, Mobitz type II Chief Complaint HALFWAY LABWORK LABWORK HALFWAY LAB WORK LABWORK HALFWAY LAB WORK LABWORK LABWORK LABWORK HALFWAY LABWORK LABWORK LABWORK LABWORK LABWORK LABWORK LABWORK HALFWAY LAB WORK LABWORK LABWORK LABWORK 6 M FU HALFWAY LAB WORK Reason for Visit Atrial fibrillation HLD (hyperlipidemia) Presence of cardiac pacemaker HTN (hypertension) Second degree AV block, Mobitz type II Chief Complaint HALFWAY LAB WOR K LABWORK HALFWAY LAB WORK LABWORK LABWORK LABWORK HALFWAY LABWORK LABWORK LABWORK LABWORK LABWORK LABWORK LABWORK HALFWAY LAB WORK LABWORK LABWORK LABWORK 6 M FU LABWORK HALFWAY LAB WORK Reason for Visit Atrial fibrillation HLD (hyperlipidemia) Presence of cardiac pacemaker HTN (hypertension) Second degree AV block, Mobitz type II Chief Complaint LABWORK LABWORK HALFWAY LABWORK LABWORK 6 wk post PPM implant f/u / KR @ 2p S/P PACER IMPLANT 6 wk fu / NAA @ 1:30 LABWORK HALFWAY LAB WORK HALFWAY LABWORK HALFWAY LAB WORK HALFWAY LAB WORK LABWORK LABWORK HALFWAY LAB WORK HALFWAY LAB WORK LABWORK Reason for Visit Presence of cardiac pacemaker Syncope Second degree AV block, Mobitz type II Sick sinus syndrome Atrial fibrillation HLD (hyperlipidemia) Presence of cardiac pacemaker HTN (hypertension) Second degree AV block, Mobitz type II Chief Complaint Admit Date HALFWAY LAB WORK July 01 4:00am HALFWAY LAB WORK July 07 5:00am LABWORK July 27, 2024 5 :00am HALFWAY LAB WORK August 04, 2024 5:00am HALFWAY LAB WORK September 29, 2024 4 :00am [...] 2024 1:0 9pm Chief Complaint Admit Date HALFWAY LAB WORK July 01 4:00am HALFWAY LAB WORK July 07 5:00am LABWORK July 27, 2024 5 :00am HALFWAY LAB WORK August 04, 2024 5:00am HALFWAY LAB WORK September 29, 2024 4 :00am HALFWAY LAB WORK October 05, 2024 5 :00am 6 M FU October 12, 2024 1:0 9pm Chief Complaint Admit Date 6 M FU October 12, 2024 1:0 9pm HALFWAY LAB WORK November 24, 2024 5:0 0am HALFWAY LAB WORK December 16, 2024 4:0 0am HALFWAY LAB WORK December 22, 2024 5: 00am PNA, L DIABETIC FOOT WOUND/ULCER February 022024 11:12pm Reason for Visit Admit Date Presence of cardiac pacemaker September 1:09pm Atrial fibrillation October 12, 2024 1:0 9pm Diabetes October 12, 2024 1:0 9pm HLD (hyperlipidemia) October 12, 2024 1: 09pm HTN (hypertension) October 12, 2024 1:0 9pm Sick sinus syndrome October 12, 2024 1:0 9pm Pneumonia February 02, 2025 11:1 2pm Chief Complaint Admit Date HALFWAY LAB WORK November 24, 2024 5:0 0am HALFWAY LAB WORK December 16, 2024 4:0 0am HALFWAY LAB WORK December 22, 2024 5: 00am PNA, L DIABETIC FOOT WOUND/ULCER February 022024 11:12pm PNA, L DIABETIC FOOT WOUND/ULCER February 032024 9:56am PNA, L DIABETIC FOOT WOUND/ULCER February 042024 7:30am PNA, L DIABETIC FOOT WOUND/ULCER February 042024 9:02am PNA, L DIABETIC FOOT WOUND/ULCER February 052024 8:38am PNA, L DIABETIC FOOT WOUND/ULCER February 062024 9:06am PNA, L DIABETIC FOOT WOUND/ULCER February 072024 9:18am PNA, L DIABETIC FOOT WOUND/ULCER February 082024 8:27am PNA, L DIABETIC FOOT WOUND/ULCER February 092024 9:09am PNA, L DIABETIC FOOT WOUND/ULCER February 092024 6:08pm PNA, L DIABETIC FOOT WOUND/ULCER February 102024 9:42am PNA, L DIABETIC FOOT WOUND/ULCER February 102024 6:20pm PNA, L DIABETIC FOOT WOUND/ULCER February 112024 8:39am PNA, L DIABETIC FOOT WOUND/ULCER February 112024 9:22am Reason for Visit Admit Date Acute osteomyelitis of metatarsal bone o f left foot February 02, 2025 11:12pm Cellulitis of left lower limb February 02, 2025 11:12pm Diabetes mellitus with diabetic polyneur opathy February 02, 2025 11:12pm PAD (peripheral artery disease) January 11:12pm Pneumonia February 02, 2025 11:1 2pm Type 2 diabetes mellitus with foot ulcer February 02, 2025 11:12pm Family History No Family History Records Found [...] Referral Specialty Diagnoses / Procedures Referred By Contac t Referred To Contact [facility] Diagnoses Driving safety issue Procedures CONSULT TO POLICY MANAGER OCCUPATIONAL THERAPY EVAL HIGH COMPLEX 60 MINS Jojo Kaur MD [address] [place] [address] [facility] [place] [address] Referral ID Status Reason Start Date Expiration Date Visits Requested Visits Authorized [id number] Authorized PCP Requested Referral Auto-Generate d Referral 09/07/2022 09/07/2023 99 99 Specialty Diagnoses / Procedures Referred By Contac t Referred To Contact [facility] Diagnoses Polyneuropathy Procedures CONSULT TO PHYSICAL THERAPY PHYSICAL THERAPY [facility] HIGH COMPLEX 45 MINS Jojo Kaur MD [address] [place] [address] [place] [id number] Referral ID Status Reason Start Date Expiration Date Visits Requested Visits Authorized [id number] Authorized PCP Requested Referral Auto-Generate d Referral 04/17/2022 04/17/2023 99 99 Specialty Diagnoses / Procedures Referred By Contac t Referred To Contact Psychology Diagnoses Generalized anxiety disorder Procedures CONSULT TO PSYCHOLOGY OFFICE/OUTPATIENT [facility] 60-74 MINUTES Jojo Kaur MD [address] [place] [address] Referral ID Status Reason Start Date Expiration Date Visits Requested Visits Authorized [id number] Pending Review PCP Requested Referral 04/17/2022 04/17/2023 1 1 Specialty Diagnoses / Procedures Referred By Contac t Referred To Contact Podiatry Diagnoses Type 2 diabetes mellitus with diabetic neuropathy, with long-term current use of insulin (HCC) Procedures CONSULT TO PODIATRY OFFICE/OUTPATIENT [facility] 60-74 MINUTES PodlogRoselia hernandez APRN.[employer] [address] [place] [address] Referral ID Status Reason Start Date Expiration Date Visits Requested Visits Authorized [id number] Authorized PCP Requested Referral 01/12/2022 01/11/2023 1 1 Specialty Diagnoses / Procedures Referred By Contac t Referred To Contact [facility] Diagnoses Altered mental status, unspecified altered mental status type Procedures CONSULT TO SPEECH THERAPY OFFICE/OUTPATIENT [facility] 60-74 MINUTES Jojo Kaur MD [address] [place] [address] [facility] [place] [address] Referral ID Status Reason Start Date Expiration Date Visits Requested Visits Authorized [id number] Authorized Auto-Generat ed Referral 01/05/2022 01/05/2023 99 99 Specialty Diagnoses / Procedures Referred By Contac t Referred To Contact [facility] Diagnoses Abnormality of gait due to impairment of balance Procedures CONSULT TO PHYSICAL THERAPY PHYSICAL THERAPY EVALUATION HIGH COMPLEX 45 MINS Jojo Kaur MD [facility] [place] [address] [facility] [place] [address] Referral ID Status Reason Start Date Expiration Date Visits Requested Visits Authorized [id number] Authorized PCP Requested Referral Auto-Generate d Referral 01/05/2022 01/05/2023 99 99 Specialty Diagnoses / Procedures Referred By Contac t Referred To Contact [facility] Diagnoses Altered mental status, unspecified altered mental status type Procedures EPIL EEG ROUTINE ELECTROENCEPHALOGRAM REC COMA/SLEEP ONLY Jojo Kaur MD [address] [place] [address] [facility] [address] [place] [address] Referral ID Status Reason Start Date Expiration Date Visits Requested Visits Authorized [id number] Authorized Auto-Generat ed Referral 01/05/2022 01/05/2023 1 1 Specialty Diagnoses / Procedures Referred By Linn carrillo Referred To Contact Neurology Diagnoses Altered mental status, unspecified altered mental status type Procedures CONSULT TO NEUROLOGY OFFICE/OUTPATIENT [facility] 60-74 MINUTES Abdulaziz Caldera MD [address] [place] [address] Referral ID Status Reason Start Date Expiration Date Visits Requested Visits Authorized [id number] Authorized PCP Requested Referral 01/01/2022 01/01/2023 1 1 Summary Purpose Additional Source Comments Source Comments (unrecognize d section and content) In the event this informatio n is protected by the Federal Confidentiality of Alcohol and Drug Abuse Patient Records regulations: The Federal rules restrict any use of the information to criminally investigate or prosecute any alcohol or drug abuse patient.[facility] [place] the event this information is protected by the Federal Confidentiality of Alcohol and Drug Abuse Patient Records regulations: The Federal rules restrict any use of the information to criminally investigate or prosecute any alcohol or drug abuse patient.[facility] [place] the event this information is protected by the Federal Confidentiality of Alcohol and Drug Abuse Patient Records regulations: The Federal rules restrict any use of the information to criminally investigate or prosecute any alcohol or drug abuse patient.[facility] [place] the event this information is protected by the Federal Confidentiality of Alcohol and Drug Abuse Patient Records regulations: The Federal rules restrict any use of the information to criminally investigate or prosecute any alcohol or drug abuse patient.[facility] [place] the event this information is protected by the Federal Confidentiality of Alcohol and Drug Abuse Patient Records regulations: The Federal rules restrict any use of the information to criminally investigate or prosecute any alcohol or drug abuse patient.[facility] [place] the event this information is protected by the Federal Confidentiality of Alcohol and Drug Abuse Patient Records regulations: The Federal rules restrict any use of the information to criminally investigate or prosecute any alcohol or drug abuse patient.[facility] [place] the event this information is protected by the Federal Confidentiality of Alcohol and Drug Abuse Patient Records regulations: The Federal rules restrict any use of the information to criminally investigate or prosecute any alcohol or drug abuse patient.[facility] [place] the event this information is protected by the Federal Confidentiality of Alcohol and Drug Abuse Patient Records regulations: The Federal rules restrict any use of the information to criminally investigate or prosecute any alcohol or drug abuse patient.[facility] [place] the event this information is protected by the Federal Confidentiality of Alcohol and Drug Abuse Patient Records regulations: The Federal rules restrict any use of the information to criminally investigate or prosecute any alcohol or drug abuse patient.[facility] [place] the event this information is protected by the Federal Confidentiality of Alcohol and Drug Abuse Patient Records regulations: The Federal rules restrict any use of the information to criminally investigate or prosecute any alcohol or drug abuse patient.[facility] [place]In the event this information is protected by the Federal Confidentiality of Alcohol and Drug Abuse Patient Records regulations: The Federal rules restrict any use of the information to criminally investigate or prosecute any alcohol or drug abuse patient.[facility] [place]In the event this information is protected by the Federal Confidentiality of Alcohol and Drug Abuse Patient Records regulations: The Federal rules restrict any use of the information to criminally investigate or prosecute any alcohol or drug abuse patient.[facility] [place]In the event this information is protected by the Federal Confidentiality of Alcohol and Drug Abuse Patient Records regulations: The Federal rules restrict any use of the information to criminally investigate or prosecute any alcohol or drug abuse patient.[facility] [place]In the event this information is protected by the Federal Confidentiality of Alcohol and Drug Abuse Patient Records regulations: The Federal rules restrict any use of the information to criminally investigate or prosecute any alcohol or drug abuse patient.[facility] [place]In the event this information is protected by the Federal Confidentiality of Alcohol and Drug Abuse Patient Records regulations: The Federal rules restrict any use of the information to criminally investigate or prosecute any alcohol or drug abuse patient.[facility] [place]In the event this information is protected by the Federal Confidentiality of Alcohol and Drug Abuse Patient Records regulations: The Federal rules restrict any use of the information to criminally investigate or prosecute any alcohol or drug abuse patient.[facility] [place]In the event this information is protected by the Federal Confidentiality of Alcohol and Drug Abuse Patient Records regulations: The Federal rules restrict any use of the information to criminally investigate or prosecute any alcohol or drug abuse patient.[facility] [place]In the event this information is protected by the Federal Confidentiality of Alcohol and Drug Abuse Patient Records regulations: The Federal rules restrict any use of the information to criminally investigate or prosecute any alcohol or drug abuse patient.[facility] [place]In the event this information is protected by the Federal Confidentiality of Alcohol and Drug Abuse Patient Records regulations: The Federal rules restrict any use of the information to criminally investigate or prosecute any alcohol or drug abuse patient.[facility] [place]In the event this information is protected by the Federal Confidentiality of Alcohol and Drug Abuse Patient Records regulations: The Federal rules restrict any use of the information to criminally investigate or prosecute any alcohol or drug abuse patient.[facility] [place]In the event this information is protected by the Federal Confidentiality of Alcohol and Drug Abuse Patient Records regulations: The Federal rules restrict any use of the information to criminally investigate or prosecute any alcohol or drug abuse patient.[facility] [place]In the event this information is protected by the Federal Confidentiality of Alcohol and Drug Abuse Patient Records regulations: The Federal rules restrict any use of the information to criminally investigate or prosecute any alcohol or drug abuse patient.[facility] [place]In the event this information is protected by the Federal Confidentiality of Alcohol and Drug Abuse Patient Records regulations: The Federal rules restrict any use of the information to criminally investigate or prosecute any alcohol or drug abuse patient.[facility] [place]In the event this information is protected by the Federal Confidentiality of Alcohol and Drug Abuse Patient Records regulations: The Federal rules restrict any use of the information to criminally investigate or prosecute any alcohol or drug abuse patient.[facility] [place]In the event this information is protected by the Federal Confidentiality of Alcohol and Drug Abuse Patient Records regulations: The Federal rules restrict any use of the information to criminally investigate or prosecute any alcohol or drug abuse patient.[facility] [place]In the event this information is protected by the Federal Confidentiality of Alcohol and Drug Abuse Patient Records regulations: The Federal rules restrict any use of the information to criminally investigate or prosecute any alcohol or drug abuse patient.[facility] [place]In the event this information is protected by the Federal Confidentiality of Alcohol and Drug Abuse Patient Records regulations: The Federal rules restrict any use of the information to criminally investigate or prosecute any alcohol or drug abuse patient.[facility] [place]In the event this information is protected by the Federal Confidentiality of Alcohol and Drug Abuse Patient Records regulations: The Federal rules restrict any use of the information to criminally investigate or prosecute any alcohol or drug abuse patient.[facility] [place]In the event this information is protected by the Federal Confidentiality of Alcohol and Drug Abuse Patient Records regulations: The Federal rules restrict any use of the information to criminally investigate or prosecute any alcohol or drug abuse patient.[facility] [place]In the event this information is protected by the Federal Confidentiality of Alcohol and Drug Abuse Patient Records regulations: The Federal rules restrict any use of the information to criminally investigate or prosecute any alcohol or drug abuse patient.[facility] [place]In the event this information is protected by the Federal Confidentiality of Alcohol and Drug Abuse Patient Records regulations: The Federal rules restrict any use of the information to criminally investigate or prosecute any alcohol or drug abuse patient.[facility] [place]In the event this information is protected by the Federal Confidentiality of Alcohol and Drug Abuse Patient Records regulations: The Federal rules restrict any use of the information to criminally investigate or prosecute any alcohol or drug abuse patient.[facility] [place]In the event this information is protected by the Federal Confidentiality of Alcohol and Drug Abuse Patient Records regulations: The Federal rules restrict any use of the information to criminally investigate or prosecute any alcohol or drug abuse patient.[facility] [place]In the event this information is protected by the Federal Confidentiality of Alcohol and Drug Abuse Patient Records regulations: The Federal rules restrict any use of the information to criminally investigate or prosecute any alcohol or drug abuse patient.[facility] [place]In the event this information is protected by the Federal Confidentiality of Alcohol and Drug Abuse Patient Records regulations: The Federal rules restrict any use of the information to criminally investigate or prosecute any alcohol or drug abuse patient.[facility] [place]In the event this information is protected by the Federal Confidentiality of Alcohol and Drug Abuse Patient Records regulations: The Federal rules restrict any use of the information to criminally investigate or prosecute any alcohol or drug abuse patient.[facility] [place]In the event this information is protected by the Federal Confidentiality of Alcohol and Drug Abuse Patient Records regulations: The Federal rules restrict any use of the information to criminally investigate or prosecute any alcohol or drug abuse patient.[facility] [place]In the event this information is protected by the Federal Confidentiality of Alcohol and Drug Abuse Patient Records regulations: The Federal rules restrict any use of the information to criminally investigate or prosecute any alcohol or drug abuse patient.[facility] [place]In the event this information is protected by the Federal Confidentiality of Alcohol and Drug Abuse Patient Records regulations: The Federal rules restrict any use of the information to criminally investigate or prosecute any alcohol or drug abuse patient.[facility] [place]In the event this information is protected by the Federal Confidentiality of Alcohol and Drug Abuse Patient Records regulations: The Federal rules restrict any use of the information to criminally investigate or prosecute any alcohol or drug abuse patient.[facility] [place]In the event this information is protected by the Federal Confidentiality of Alcohol and Drug Abuse Patient Records regulations: The Federal rules restrict any use of the information to criminally investigate or prosecute any alcohol or drug abuse patient.[facility] [place]In the event this information is protected by the Federal Confidentiality of Alcohol and Drug Abuse Patient Records regulations: The Federal rules restrict any use of the information to criminally investigate or prosecute any alcohol or drug abuse patient.[facility] [place]In the event this information is protected by the Federal Confidentiality of Alcohol and Drug Abuse Patient Records regulations: The Federal rules restrict any use of the information to criminally investigate or prosecute any alcohol or drug abuse patient.[facility] [place]In the event this information is protected by the Federal Confidentiality of Alcohol and Drug Abuse Patient Records regulations: The Federal rules restrict any use of the information to criminally investigate or prosecute any alcohol or drug abuse patient.[facility] [place]In the event this information is protected by the Federal Confidentiality of Alcohol and Drug Abuse Patient Records regulations: The Federal rules restrict any use of the information to criminally investigate or prosecute any alcohol or drug abuse patient.[facility]In the event this information is protected by the Federal Confidentiality of Alcohol and Drug Abuse Patient Records regulations: The Federal rules restrict any use of the information to criminally investigate or prosecute any alcohol or drug abuse patient.[facility] [place]In the event this information is protected by the Federal Confidentiality of Alcohol and Drug Abuse Patient Records regulations: The Federal rules restrict any use of the information to criminally investigate or prosecute any alcohol or drug abuse patient.[facility] [place]In the event this information is protected by the Federal Confidentiality of Alcohol and Drug Abuse Patient Records regulations: The Federal rules restrict any use of the information to criminally investigate or prosecute any alcohol or drug abuse patient.[facility] [place]In the event this information is protected by the Federal Confidentiality of Alcohol and Drug Abuse Patient Records regulations: The Federal rules restrict any use of the information to criminally investigate or prosecute any alcohol or drug abuse patient.[facility] [place]In the event this information is protected by the Federal Confidentiality of Alcohol and Drug Abuse Patient Records regulations: The Federal rules restrict any use of the information to criminally investigate or prosecute any alcohol or drug abuse patient.[facility] [place]In the event this information is protected by the Federal Confidentiality of Alcohol and Drug Abuse Patient Records regulations: The Federal rules restrict any use of the information to criminally investigate or prosecute any alcohol or drug abuse patient.[facility] [place]In the event this information is protected by the Federal Confidentiality of Alcohol and Drug Abuse Patient Records regulations: The Federal rules restrict any use of the information to criminally investigate or prosecute any alcohol or drug abuse patient.[facility] [place]In the event this information is protected by the Federal Confidentiality of Alcohol and Drug Abuse Patient Records regulations: The Federal rules restrict any use of the information to criminally investigate or prosecute any alcohol or drug abuse patient.[facility] [place]In the event this information is protected by the Federal Confidentiality of Alcohol and Drug Abuse Patient Records regulations: The Federal rules restrict any use of the information to criminally investigate or prosecute any alcohol or drug abuse patient.[facility] [place]In the event this information is protected by the Federal Confidentiality of Alcohol and Drug Abuse Patient Records regulations: The Federal rules restrict any use of the information to criminally investigate or prosecute any alcohol or drug abuse patient.[facility] [place]In the event this information is protected by the Federal Confidentiality of Alcohol and Drug Abuse Patient Records regulations: The Federal rules restrict any use of the information to criminally investigate or prosecute any alcohol or drug abuse patient.[facility] [place]In the event this information is protected by the Federal Confidentiality of Alcohol and Drug Abuse Patient Records regulations: The Federal rules restrict any use of the information to criminally investigate or prosecute any alcohol or drug abuse patient.[facility] [place]In the event this information is protected by the Federal Confidentiality of Alcohol and Drug Abuse Patient Records regulations: The Federal rules restrict any use of the information to criminally investigate or prosecute any alcohol or drug abuse patient.[facility] [place]In the event this information is protected by the Federal Confidentiality of Alcohol and Drug Abuse Patient Records regulations: The Federal rules restrict any use of the information to criminally investigate or prosecute any alcohol or drug abuse patient.[facility] [place]In the event this information is protected by the Federal Confidentiality of Alcohol and Drug Abuse Patient Records regulations: The Federal rules restrict any use of the information to criminally investigate or prosecute any alcohol or drug abuse patient.[facility] [place]In the event this information is protected by the Federal Confidentiality of Alcohol and Drug Abuse Patient Records regulations: The Federal rules restrict any use of the information to criminally investigate or prosecute any alcohol or drug abuse patient.[facility] [place]In the event this information is protected by the Federal Confidentiality of Alcohol and Drug Abuse Patient Records regulations: The Federal rules restrict any use of the information to criminally investigate or prosecute any alcohol or drug abuse patient.[facility] [place]In the event this information is protected by the Federal Confidentiality of Alcohol and Drug Abuse Patient Records regulations: The Federal rules restrict any use of the information to criminally investigate or prosecute any alcohol or drug abuse patient.[facility] [place]In the event this information is protected by the Federal Confidentiality of Alcohol and Drug Abuse Patient Records regulations: The Federal rules restrict any use of the information to criminally investigate or prosecute any alcohol or drug abuse patient.[facility] [place]In the event this information is protected by the Federal Confidentiality of Alcohol and Drug Abuse Patient Records regulations: The Federal rules restrict any use of the information to criminally investigate or prosecute any alcohol or drug abuse patient.[facility] [place]In the event this information is protected by the Federal Confidentiality of Alcohol and Drug Abuse Patient Records regulations: The Federal rules restrict any use of the information to criminally investigate or prosecute any alcohol or drug abuse patient.[facility] [place]In the event this information is protected by the Federal Confidentiality of Alcohol and Drug Abuse Patient Records regulations: The Federal rules restrict any use of the information to criminally investigate or prosecute any alcohol or drug abuse patient.[facility] [place]In the event this information is protected by the Federal Confidentiality of Alcohol and Drug Abuse Patient Records regulations: The Federal rules restrict any use of the information to criminally investigate or prosecute any alcohol or drug abuse patient.[facility] [place]In the event this information is protected by the Federal Confidentiality of Alcohol and Drug Abuse Patient Records regulations: The Federal rules restrict any use of the information to criminally investigate or prosecute any alcohol or drug abuse patient.[facility] [place]In the event this information is protected by the Federal Confidentiality of Alcohol and Drug Abuse Patient Records regulations: The Federal rules restrict any use of the information to criminally investigate or prosecute any alcohol or drug abuse patient.[facility] [place]In the event this information is protected by the Federal Confidentiality of Alcohol and Drug Abuse Patient Records regulations: The Federal rules restrict any use of the information to criminally investigate or prosecute any alcohol or drug abuse patient.[facility] [place]In the event this information is protected by the Federal Confidentiality of Alcohol and Drug Abuse Patient Records regulations: The Federal rules restrict any use of the information to criminally investigate or prosecute any alcohol or drug abuse patient.[facility] [place]In the event this information is protected by the Federal Confidentiality of Alcohol and Drug Abuse Patient Records regulations: The Federal rules restrict any use of the information to criminally investigate or prosecute any alcohol or drug abuse patient.[facility] [place]In the event this information is protected by the Federal Confidentiality of Alcohol and Drug Abuse Patient Records regulations: The Federal rules restrict any use of the information to criminally investigate or prosecute any alcohol or drug abuse patient.[facility] [place]In the event this information is protected by the Federal Confidentiality of Alcohol and Drug Abuse Patient Records regulations: The Federal rules restrict any use of the information to criminally investigate or prosecute any alcohol or drug abuse patient.[facility] [place]In the event this information is protected by the Federal Confidentiality of Alcohol and Drug Abuse Patient Records regulations: The Federal rules restrict any use of the information to criminally investigate or prosecute any alcohol or drug abuse patient.[facility] [place]In the event this information is protected by the Federal Confidentiality of Alcohol and Drug Abuse Patient Records regulations: The Federal rules restrict any use of the information to criminally investigate or prosecute any alcohol or drug abuse patient.[facility] [place]In the event this information is protected by the Federal Confidentiality of Alcohol and Drug Abuse Patient Records regulations: The Federal rules restrict any use of the information to criminally investigate or prosecute any alcohol or drug abuse patient.[facility] [place]In the event this information is protected by the Federal Confidentiality of Alcohol and Drug Abuse Patient Records regulations: The Federal rules restrict any use of the information to criminally investigate or prosecute any alcohol or drug abuse patient.[facility] [place] Reason for Visit (unrecogniz ed section and content) Reason Comments PT Discharge Specialty Diagnoses / Procedures Referred By Contac t Referred To Contact [facility] Diagnoses Abnormality of gait due to impairment of balance Procedures CONSULT TO PHYSICAL THERAPY PHYSICAL THERAPY EVALUATION HIGH COMPLEX 45 MINS Jojo Kaur MD [address] [place] [address] [facility] [place] [address] [place] [address] Referral ID Status Reason Start Date Expiration Date Visits Requested Visits Authorized [id number] Authorized PCP Requested Referral Auto-Generate d Referral [...] 6 mo Reason Comments Hospital Follow Up [facility] discharged Reason Comments Results Reason Comments Consult altered mental statu s Specialty Diagnoses / Procedures Referred By Linn carrillo Referred To Contact Neurology Diagnoses Altered mental status, unspecified altered mental status type Procedures CONSULT TO NEUROLOGY OFFICE/OUTPATIENT [facility] MDM 60-74 MINUTES Abdulaziz Caldera MD [address] [place] [address] Referral ID Status Reason Start Date Expiration Date V isits Requested Visits Authorized [id number] Closed PCP Requested Referral 01/01/2022 01/01/2023 1 [...] Nursing Plan of Care Update Reason Comments [facility] PT POC Reason Comments OT plan of care Reason Onset Date Comments Refill Request 07/25/2022 Reason Comments Home Health-Nursing Update Reason Onset Date Comments Anticoagulation 07/31/2022 Specialty Diagnoses / Procedures Referred By Linn carrillo Referred To Contact Ent - Otolaryngology Diagnoses Chronic frontal sinusitis Procedures CONSULT TO ENT OFFICE/OUTPATIENT [facility] MDM 60-74 MINUTES Abdulaziz Caldera MD [address] [place] [address] Referral ID Status Reason Start Date Expiration Date V isits Requested Visits Authorized [id number] Closed PCP Requested Referral 07/12/2022 07/12/2023 1 [...] Care Teams (unrecognized sec tion and content) Ergonomic Specialist Relationship Specialty Start Date End Date Abdulaziz Caldera MD [address] [place], [place] [id number] PCP - General Family Practice 11/23/20 Ergonomic Specialist Relationship Specialty Start Date End Date Abdulaziz Caldera MD [address] [place] [address] PCP - General Family Practice 11/23/20 Ergonomic Specialist Relationship Specialty Start Date End Date Abdulaziz Caldera MD [address] [place] [address] PCP - General Family Practice 11/23/20 Ergonomic Specialist Relationship Specialty Start Date End Date Abdulaziz Caldera MD [address] [place] [address] PCP - General Family Practice 11/23/20 Ergonomic Specialist Relationship Specialty Start Date End Date Abdulaziz Caldera MD [address] [place] [address] PCP - General Family Practice 11/23/20 Ergonomic Specialist Relationship Specialty Start Date End Date Abdulaziz Caldera MD [address] [facility] [place] [address] PCP - General Family Practice 11/23/20 Ergonomic Specialist Relationship Specialty Start Date End Date Abdulaziz Caldera MD [address] [facility] [place] [address] PCP - General Family Practice 11/23/20 Ergonomic Specialist Relationship Specialty Start Date End Date Abdulaziz Caldera MD [address] [facility] [place] [address] PCP - General Family Practice 11/23/20 Ergonomic Specialist Relationship Specialty Start Date End Date Abdulaziz Caldera MD [address] [facility] [place] [address] PCP - General Family Practice 11/23/20 Ergonomic Specialist Relationship Specialty Start Date End Date Abdulaziz Caldera MD [address] [facility] [place] [address] PCP - General Family Practice 11/23/20 Ergonomic Specialist Relationship Specialty Start Date End Date Abdulaziz Caldera MD [address] [facility] [place] [address] PCP - General Family Practice 11/23/20 Ergonomic Specialist Relationship Specialty Start Date End Date Abdulaziz Caldera MD [address] [facility] [place] [address] PCP - General Family Practice 11/23/20 Ergonomic Specialist Relationship Specialty Start Date End Date Abdulaziz Caldera MD [address] [facility] [place] [address] PCP - General Family Practice 11/23/20 Ergonomic Specialist Relationship Specialty Start Date End Date Abdulaziz Caldera MD [address] [facility] [place] [address] PCP - General Family Practice 11/23/20 Ergonomic Specialist Relationship Specialty Start Date End Date Abdulaziz Caldera MD [address] [facility] [place] [address] PCP - General Family Practice 11/23/20 Ergonomic Specialist Relationship Specialty Start Date End Date Abdulaziz Caldera MD [address] [facility] [place] [address] PCP - General Family Practice 11/23/20 Ergonomic Specialist Relationship Specialty Start Date End Date Abdulaziz Caldera MD [address] [facility] [place] [address] PCP - General Family Practice 11/23/20 Ergonomic Specialist Relationship Specialty Start Date End Date Abdulaziz Caldera MD [address] [facility] [place] [address] PCP - General Family Practice 11/23/20 Ergonomic Specialist Relationship Specialty Start Date End Date Abdulaziz Caldera MD [address] [facility] [place] [address] PCP - General Family Practice 11/23/20 Ergonomic Specialist Relationship Specialty Start Date End Date Abdulaziz Caldera MD [address] [facility] [place] [address] PCP - General Family Practice 11/23/20 Ergonomic Specialist Relationship Specialty Start Date End Date Abdulaziz Caldera MD [address] [facility] [place] [address] PCP - General Family Practice 11/23/20 Ergonomic Specialist Relationship Specialty Start Date End Date Abdulaziz Caldera MD [address] [facility] [place] [address] PCP - General Family Practice 11/23/20 Ergonomic Specialist Relationship Specialty Start Date End Date Abdulaziz Caldera MD [address] [facility] [place] [address] PCP - General Family Medicine 11/23/20 Ergonomic Specialist Relationship Specialty Start Date End Date Abdulaziz Caldera MD [address] [facility] [place] [address] PCP - General Family Medicine 11/23/20 Ergonomic Specialist Relationship Specialty Start Date End Date Abdulaziz Caldera MD [address] [facility] [place] [address] PCP - General Family Medicine 11/23/20 Ergonomic Specialist Relationship Specialty Start Date End Date Abdulaziz Caldera MD [address] [facility] [place] [address] PCP - General Family Medicine 11/23/20 Ergonomic Specialist Relationship Specialty Start Date End Date Abdulaziz Caldera MD [address] [facility] [place] [address] PCP - General Family Medicine 11/23/20 Ergonomic Specialist Relationship Specialty Start Date End Date Abdulaziz Caldera MD [address] [facility] [place] [address] PCP - General Family Medicine 11/23/20 Ergonomic Specialist Relationship Specialty Start Date End Date Abdulaziz Caldera MD [address] [facility] [place] [address] PCP - General Family Medicine 11/23/20 Ergonomic Specialist Relationship Specialty Start Date End Date Abdulaziz Caldera MD [address] [facility] [place] [address] PCP - General Family Medicine 11/23/20 Ergonomic Specialist Relationship Specialty Start Date End Date Abdulaziz Caldera MD [address] [facility] [place] [address] PCP - General Family Medicine 11/23/20 Ergonomic Specialist Relationship Specialty Start Date End Date Abdulaziz Caldera MD [address] [facility] [place] [address] PCP - General Family Medicine 11/23/20 Ergonomic Specialist Relationship Specialty Start Date End Date Abdulaziz Caldera MD [address] [facility] [place] [address] PCP - General Family Medicine 11/23/20 Ergonomic Specialist Relationship Specialty Start Date End Date Abdulaziz Caldera MD [address] [facility] [place] [address] PCP - General Family Medicine 11/23/20 Ergonomic Specialist Relationship Specialty Start Date End Date Abdulaziz Caldera MD [address] [facility] [place] [address] PCP - General Family Medicine 11/23/20 Ergonomic Specialist Relationship Specialty Start Date End Date Abdulaziz Caldera MD [address] [facility] [place] [address] PCP - General Family Medicine 11/23/20 Ergonomic Specialist Relationship Specialty Start Date End Date Abdulaziz Caldera MD [address] [facility] [place] [address] PCP - General Family Medicine 11/23/20 Ergonomic Specialist Relationship Specialty Start Date End Date Abdulaziz Caldera MD [address] [facility] [place] [address] PCP - General Family Medicine 11/23/20 Ergonomic Specialist Relationship Specialty Start Date End Date Abdulaziz Caldera MD [facility] [place] [address] PCP - General Family Medicine 11/23/20 Ergonomic Specialist Relationship Specialty Start Date End Date Abdulaziz Caldera MD [address] [facility] [place] [address] PCP - General Family Medicine 11/23/20 Ergonomic Specialist Relationship Specialty Start Date End Date Abdulaziz Caldera MD [address] [place] [address] PCP - General Family Medicine 11/23/20 Team [...] MD Admit Provider, Attending Provi skip Active Ergonomic Specialist Relationship Specialty Start Date End Date Abdulaziz Caldera MD [address] [place] [address] PCP - General Family Medicine 11/23/20 Team [...] Dandy Sauer MD Emergency Provider Active Dr. Ryna Tinoco MD Admit Provider, Other Provider Active [...] Status: Active Member Role Status Dates Dr. uLis Caldera MD Primary Care Provider Acti ve [...] Hackett DO Attending Provider Active Team Status: Inactive Member Role Status Dates Dr. Luis Caldera MD Primary Care Provider Acti ve Dr. aDndy Sauer MD Emergency Provider Active Dr. Ryan Tinoco MD Admit Provider, Attending Provi skip Active Dr. Lizzeth Riggs MD Other Provider Active Team Status: Active Member Role Status Dates Dr. Luis Caldera MD Primary Care Provider Acti ve Dr. Syed Allen DO Emergency Provider Active Dr. Karen Aly MD Admit Provider, Attending Prov ider Active Ergonomic Specialist Relationship Specialty Start Date End Date Abdulaziz Caldera MD [address] [place] [address] PCP - General Family Medicine 11/23/20 Team [...] Rasheed MD Other Provider Active Dr. Yisel Rnedon MD Other Provider Active Dr. Caryl Mcdermott [...] Liu Hackett DO Attending Provider Active Dr. Ryna Tinoco MD Referring Provider Active Team Status: [...] Provider, Ref erring Provider Active Ann Rodríguez ASSESSMENT SPECIALIST, ASSESSMENT SPECIALIST-C Attending Provider Active Team Status: Active Member [...] October 05, 2024 End: October 05, 2024 Team Status: Active Member Role/Relationship Status Dates Kuldip Cosby NP-C Primary Care Provider Active Team Status: Inactive Member Role/Relationship Status Dates Dr. Luis Caldera MD Primary Care Provider Acti ve Start: October 12, 2024 End: October 12, 2024 Dr. Luis Caldera MD Referring Provider Active Start: October 12, 2024 End: October 12, 2024 Dr. Olga Lidia Rasheed MD Attending Provider Active Start: October 12, 2024 End: October 12, 2024 Team Status: Active Member Role/Relationship Status Dates Dr. Luis Caldera MD Primary Care Provider Acti ve Start: November 24, 2024 Walter MAYORGA MD Attending Provider Active S tart: November 24, 2024 Team Status: Active Member Role/Relationship Status Dates Dr. Luis Caldera MD Primary Care Provider Acti ve Start: December 16, 2024 Walter MAYORGA MD Attending Provider Active S tart: December 16, 2024 Walter MAYORGA MD Referring Provider Active S tart: December 16, 2024 Team Status: Active Member Role/Relationship Status Dates Dr. Luis Caldera MD Primary Care Provider Acti ve Start: December 22, 2024 Walter MAYORGA MD Attending Provider Active S tart: December 22, 2024 Team Status: Active Member Role/Relationship Status Dates Dr. Nicholas Galarza DO Emergency Provider Active Start: February 02, 2025 Kuldip Cosby NP-C Primary Care Provider Active Start: February 02, 2025 Dr. Karen Aly MD Admit Provider Active St art: February 02, 2025 Dr. Karen Aly MD Attending Provider Active Start: February 02, 2025 Dr. Karen Aly MD Other Provider Active St art: February 02, 2025 Team Status: Active Member Role/Relationship Status Dates Dr. Luis Caldera MD Primary Care Provider Acti ve Start: November 24, 2024 Walter MAYORGA MD Attending Provider Active S tart: November 24, 2024 Team Status: Active Member Role/Relationship Status Dates Dr. Luis Caldera MD Primary Care Provider Acti ve Start: December 16, 2024 Walterbreonna MAYORGA MD Attending Provider Active S tart: December 16, 2024 Walter MAYORGA MD Referring Provider Active S tart: December 16, 2024 Team Status: Active Member Role/Relationship Status Dates Dr. Luis Caldera MD Primary Care Provider Acti ve Start: December 22, 2024 Waletr MAYORGA MD Attending Provider Active S tart: December 22, 2024 Team Status: Inactive Member Role/Relationship Status Dates Dr. Nicholas Galarza DO Emergency Provider Active Start: February 02, 2025 End: February 11, 2025 Kuldip Cosby NP-C Primary Care Provider Active Start: February 02, 2025 End: February 11, 2025 Dr. Karen Aly MD Admit Provider Active St art: February 02, 2025 End: February 11, 2025 Dr. Karen Aly MD Other Provider Active St art: February 02, 2025 End: February 11, 2025 Dr. Kee Meija DPM Other Provider Active Start: February 02, 2025 End: February 11, 2025 Dr. Hugo Cervantes MD Attending Provider Active Start: February 02, 2025 End: February 11, 2025 Dr. Aneesh Ac MD Other Provider Active Start : February 02, 2025 End: February 11, 2025 Dr. Smith Leija MD Other Provider Active Start: February 02, 2025 End: February 11, 2025 Team Status: Active Member Role/Relationship Status Dates Dr. Nicholas Galarza DO Emergency Provider Active Start: February 03, 2025 Kuldip Cosby NP-C Primary Care Provider Active Start: February 03, 2025 Dr. Karen Aly MD Admit Provider Active St art: February 03, 2025 Dr. Karen Aly MD Other Provider Active St art: February 03, 2025 Dr. Kee Mejia DPM Other Provider Active Start: February 03, 2025 Dr. Hugo Cervantes MD Attending Provider Active Start: February 03, 2025 Dr. Hugo Cervantes MD Other Provider Active Start: February 03, 2025 Team Status: Active Member Role/Relationship Status Dates Kuldip Cosby ASSESSMENT SPECIALIST-C Primary Care Provider Active Start: February 03, 2025 Dr. Aneesh Ac MD Attending Provider Active S tart: February 03, 2025 Team Status: Active Member Role/Relationship Status Dates Dr. Nicholas Galarza DO Emergency Provider Active Start: February 04, 2025 Kuldip Cosby ASSESSMENT SPECIALIST-C Primary Care Provider Active Start: February 04, 2025 Dr. Karen Aly MD Admit Provider Active St art: February 04, 2025 Dr. Karen Aly MD Other Provider Active St art: February 04, 2025 Dr. Kee Mejia DPM Other Provider Active Start: February 04, 2025 Dr. Hugo Cervantes MD Other Provider Active Start: February 04, 2025 Dr. Aneesh Ac MD Other Provider Active Start : February 04, 2025 DENIA Baird Attending Provider Active Star t: February 04, 2025 Team Status: Active Member Role/Relationship Status Dates Dr. Nicholas Galarza DO Emergency Provider Active Start: February 04, 2025 Kuldip Cosby ASSESSMENT SPECIALIST-C Primary Care Provider Active Start: February 04, 2025 Dr. Karen Aly MD Admit Provider Active St art: February 04, 2025 Dr. Karen Aly MD Other Provider Active St art: February 04, 2025 Dr. Kee Mejia DPM Other Provider Active Start: February 04, 2025 Dr. Hugo Cervantes MD Attending Provider Active Start: February 04, 2025 Dr. Hugo Cervantes MD Other Provider Active Start: February 04, 2025 Dr. Aneesh Ac MD Other Provider Active Start : February 04, 2025 Team Status: Active Member Role/Relationship Status Dates Dr. Nicholas Galarza DO Emergency Provider Active Start: February 05, 2025 Kuldip Cosby , ASSESSMENT SPECIALIST-C Primary Care Provider Active Start: February 05, 2025 Dr. Karen Aly MD Admit Provider Active St art: February 05, 2025 Dr. Karen Aly MD Other Provider Active St art: February 05, 2025 Dr. Kee Mejia DPM Other Provider Active Start: February 05, 2025 Dr. Hugo Cervantes MD Attending Provider Active Start: February 05, 2025 Dr. Hugo Cervantes MD Other Provider Active Start: February 05, 2025 Dr. Aneesh Ac MD Other Provider Active Start : February 05, 2025 Team Status: Active Member Role/Relationship Status Dates Dr. Nicholas Galarza DO Emergency Provider Active Start: February 06, 2025 Kuldip Cosby , ASSESSMENT SPECIALIST-C Primary Care Provider Active Start: February 06, 2025 Dr. Karen Aly MD Admit Provider Active St art: February 06, 2025 Dr. Karen Aly MD Other Provider Active St art: February 06, 2025 Dr. Kee Mejia DPM Other Provider Active Start: February 06, 2025 Dr. Hugo Cervantes MD Attending Provider Active Start: February 06, 2025 Dr. Hugo Cervantes MD Other Provider Active Start: February 06, 2025 Dr. Aneesh Ac MD Other Provider Active Start : February 06, 2025 Team Status: Active Member Role/Relationship Status Dates Dr. Nicholas Galarza DO Emergency Provider Active Start: February 07, 2025 Kuldip Cosby , ASSESSMENT SPECIALIST-C Primary Care Provider Active Start: February 07, 2025 Dr. Karen Aly MD Admit Provider Active St art: February 07, 2025 Dr. Karen Aly MD Other Provider Active St art: February 07, 2025 Dr. Kee Mejia DPM Other Provider Active Start: February 07, 2025 Dr. Hugo Cervantes MD Attending Provider Active Start: February 07, 2025 Dr. Hugo Cervantes MD Other Provider Active Start: February 07, 2025 Dr. Aneesh Ac MD Other Provider Active Start : February 07, 2025 Team Status: Active Member Role/Relationship Status Dates Dr. Nicholas Galarza DO Emergency Provider Active Start: February 08, 2025 Kuldip Cosby NP-C Primary Care Provider Active Start: February 08, 2025 Dr. Karen Aly MD Admit Provider Active St art: February 08, 2025 Dr. Karen Aly MD Other Provider Active St art: February 08, 2025 Dr. Kee Mejia DPM Other Provider Active Start: February 08, 2025 Dr. Hugo Cervantes MD Attending Provider Active Start: February 08, 2025 Dr. Hugo Cervantes MD Other Provider Active Start: February 08, 2025 Dr. Aneesh Ac MD Other Provider Active Start : February 08, 2025 Team Status: Active Member Role/Relationship Status Dates Dr. Nicholas Galarza DO Emergency Provider Active Start: February 09, 2025 Kuldip Cosby NP-C Primary Care Provider Active Start: February 09, 2025 Dr. Karen Aly MD Admit Provider Active St art: February 09, 2025 Dr. Karen Aly MD Other Provider Active St art: February 09, 2025 Dr. Kee Mejia DPM Other Provider Active Start: February 09, 2025 Dr. Hugo Cervantes MD Attending Provider Active Start: February 09, 2025 Dr. Hugo Cervantes MD Other Provider Active Start: February 09, 2025 Dr. Aneesh Ac MD Other Provider Active Start : February 09, 2025 Dr. Smith Leija MD Other Provider Active Start: February 09, 2025 Team Status: Active Member Role/Relationship Status Dates Dr. Nicholas Galarza DO Emergency Provider Active Start: February 09, 2025 Kuldip Cosby NP-C Primary Care Provider Active Start: February 09, 2025 Dr. Karen Aly MD Admit Provider Active St art: February 09, 2025 Dr. Karen Aly MD Other Provider Active St art: February 09, 2025 Dr. Kee Mejia DPM Other Provider Active Start: February 09, 2025 Dr. Hugo Cervantes MD Other Provider Active Start: February 09, 2025 Dr. Aneesh Ac MD Attending Provider Active S tart: February 09, 2025 Dr. Aneesh Ac MD Other Provider Active Start : February 09, 2025 Dr. Smith Leija MD Other Provider Active Start: February 09, 2025 Team Status: Active Member Role/Relationship Status Dates Dr. Nicholas Galarza DO Emergency Provider Active Start: February 10, 2025 Kuldip Cosby , ASSESSMENT SPECIALIST-C Primary Care Provider Active Start: February 10, 2025 Dr. Karen Aly MD Admit Provider Active St art: February 10, 2025 Dr. Karen Aly MD Other Provider Active St art: February 10, 2025 Dr. Kee Mejia DPM Other Provider Active Start: February 10, 2025 Dr. Hugo Cervantes MD Attending Provider Active Start: February 10, 2025 Dr. Hugo Cervantes MD Other Provider Active Start: February 10, 2025 Dr. Aneesh Ac MD Other Provider Active Start : February 10, 2025 Dr. Smith Leija MD Other Provider Active Start: February 10, 2025 Team Status: Active Member Role/Relationship Status Dates Dr. Nicholas Galarza DO Emergency Provider Active Start: February 10, 2025 Kuldip Cosby , ASSESSMENT SPECIALIST-C Primary Care Provider Active Start: February 10, 2025 Dr. Karen Aly MD Admit Provider Active St art: February 10, 2025 Dr. Karen Aly MD Other Provider Active St art: February 10, 2025 Dr. Kee Mejia DPM Other Provider Active Start: February 10, 2025 Dr. Hugo Cervantes MD Other Provider Active Start: February 10, 2025 Dr. Aneesh Ac MD Attending Provider Active S tart: February 10, 2025 Dr. Aneesh Ac MD Other Provider Active Start : February 10, 2025 Dr. Smith Leija MD Other Provider Active Start: February 10, 2025 Team Status: Active Member Role/Relationship Status Dates Dr. Nicholas Galarza DO Emergency Provider Active Start: February 11, 2025 Kuldip Cosby ASSESSMENT SPECIALIST-C Primary Care Provider Active Start: February 11, 2025 Dr. Karen Aly MD Admit Provider Active St art: February 11, 2025 Dr. Karen Aly MD Other Provider Active St art: February 11, 2025 Dr. Kee Mejia DPM Other Provider Active Start: February 11, 2025 Dr. Hugo Cervantes MD Other Provider Active Start: February 11, 2025 Dr. Aneesh Ac MD Other Provider Active Start : February 11, 2025 Dr. Smith Leija MD Other Provider Active Start: February 11, 2025 DENIA Baird Attending Provider Active Star t: February 11, 2025 Team Status: Active Member Role/Relationship Status Dates Dr. Nicholas Galarza DO Emergency Provider Active Start: February 11, 2025 AAYUSH Ross Primary Care Provider Active Start: February 11, 2025 Dr. Karen Aly MD Admit Provider Active St art: February 11, 2025 Dr. Karen Aly MD Other Provider Active St art: February 11, 2025 Dr. Kee Mejia DPM Other Provider Active Start: February 11, 2025 Dr. Hugo Cervantes MD Attending Provider Active Start: February 11, 2025 Dr. Hugo Cervantes MD Other Provider Active Start: February 11, 2025 Dr. Aneesh Ac MD Other Provider Active Start : February 11, 2025 Dr. Smith Leija MD Other Provider Active Start: February 11, 2025 Goals (unrecognized section and content) Goals may [...] section and content) DATE CREATED AUTHOR 01/02/2022 [facility] DATE CREATED AUTHOR AUTHOR'S ORGANIZ ATION 02/04/2022 [facility] DATE CREATED AUTHOR AUTHOR'S ORGANIZ ATION 04/19/2022 [facility]) DATE CREATED AUTHOR AUTHOR'S ORGANIZ ATION 11/07/2024 [facility] DATE CREATED AUTHOR AUTHOR'S ORGANIZ ATION 02/25/2025 [facility] FOR RECORDS PERTAINING TO PATIENTS WHO ARE [...] BE BASED ON THE PRIMARY CLINICAL RECORDS. [employer] [facility]. provides no warranty or guarantee of the accuracy or completeness of information in this document.
[2025-02-27] MEDS: 0.9% Normal Saline (1000mL) 1,000 ML 999 ML IV (19:31)
[2025-02-27 19:36] LABS: Hematocrit 38.8 % (40-54); Hemoglobin 12.3 g/dL (13.0-16.5); Immature Granulocytes Count 0.100 X10^3/uL (0.0-0.0); Mean Corp Hgb Conc 31.7 g/dL (32-36); Mean Corpuscular Volume 86.0 fL (80-94); Mean Platelet Vol. 9.4 fl (6.2-12.0); NRBC Flagged by Analyzer 0 % (0-5); Platelet Count 234 K/mm3 (150-450); RBC Distribution Width CV 13.8 % (11.6-14.6); RBC Distribution Width SD 42.7 fl (35.1-43.9); Red Blood Count 4.51 M/mm3 (4.6-6.2); White Blood Count 12.7 K/mm3 (4.4-11.0)
[2025-02-27 19:44] LABS: Prothrombin Time (Protime)PT. 15.1 SECONDS (11.7-14.9)
[2025-02-27 19:45] LABS: Partial Thromboplast Time 29.4 Seconds (24.1-36.2)
[2025-02-27 19:55] LABS: Mucous, Urine 0 SEEN /hpf (<or=2+); Red Blood Cells-Urine 0 SEEN /hpf (0-5); Squamous Epithelial Cells - UA 0 SEEN /hpf (0-5)
[2025-02-27 19:57] LABS: AST(SGOT) 14 U/L (<=37); Alanine Aminotransfer ALT/SGPT 21 U/L (<=46); Albumin, Serum 3.9 g/dL (3.4-4.8); Alkaline Phosphatase 107 U/L (40-129); Anion Gap 12 (5-15); BUN 51 mg/dL (4-19); BUN/Creat Ratio 34.0 RATIO (10-20); Calcium,Total 9.9 mg/dL (7.6-11.0); Carbon Dioxide 27.8 mmol/L (21.0-32.0); Chloride 98 mmol/L (98-108); Estimated Creatinine Clearance 54.14 ml/min (50-250); Globulin 2.7 g/dL (2.2-4.2); Glucose 176 mg/dL (70-99); Potassium 4.2 mmol/L (3.3-5.1)
[2025-02-27 19:58] LABS: Color, Urine Straw (Yellow); Glucose, Dipstick Normal (Normal); Ketone-Dipstick Negative (Negative); Leukocyte Esterase-Dipstick Negative /ul (Negative); Nitrite-Dipstick Negative (Negative); Occult Blood-Urine Negative /ul (Negative); Protein-Dipstick 15 mg/dl (Negative); Specific Gravity, Urine 1.010 (1.002-1.030); Urine Bilirubin Dipstick Negative (Negative)
--- NOTE | 2025-02-27 20:00 | CT_ITS ---
PROCEDURE: BRAIN/HEAD WITHOUT CONTRAST 02/27/2025 REASON FOR EXAM: AMS TECHNIQUE: BRAIN/HEAD WITHOUT CONTRAST Coronal and Sagittal reconstruction series were provided. One or more dose reduction techniques were used (e.g., Automated exposure control, adjustment of the mA and/or kV according to patient size, use of iterative reconstruction technique. RADIATION DOSE SUMMARY: CTDlvol: 47 mGy DLP: 943 mGycm COMPARISON: 02/02/2025 FINDINGS: Mucosal thickening in both maxillary sinuses with a small air-fluid level on the left. The bony calvarium appears intact. There is mild atrophy and periventricular chronic microvascular change. There is no intracranial mass or hemorrhage. There is no acute infarct or edema CT/Brain/Head without Contrast IMPRESSION: No acute abnormality. Maxillary sinus mucosal thickening Reading [facility]
--- NOTE | 2025-02-27 20:10 | EX.ED.DYSGE1 ---
HPI History of Present Illness Chief Complaint: Alt LOC Narrative Narrative: Patient is a 79-year-old male with past medical history of MRSA, PE on Eliquis, anxiety, depression, AAA, second-degree AV block type II, diabetes, osteomyelitis, recent surgery on his left foot. states that he has been more confused than normal but states that this has been going on ever since surgery. According to the at bedside she states that they were concerned that he is infection again in his foot prompting them to send him here for further evaluation management [facility] Medical History MRSA (methicillin resistant staph aureus) culture positive History of stress test History of echocardiogram Cardiology follow-up encounter Uses wheelchair Difficulty swallowing History of ulceration History of GI bleed History of renal disease Prostate disease Pulmonary embolism High cholesterol Atrial tachycardia Anxiety Depression Kidney stones GI bleed Non-smoker Atrial fibrillation AAA (abdominal aortic aneurysm) Dementia Bacteremia Subtherapeutic international normalized ratio (INR) UTI (urinary tract infection) Presence of cardiac pacemaker Sick sinus syndrome Anemia Second degree AV block, Mobitz type II Supratherapeutic INR Syncope Acute encephalopathy Weakness Confusion History of pulmonary embolism NSTEMI, initial episode of care Valvular heart disease Amputation of right great toe Leukocytosis Hyperkalemia COVID-19 Ureterolithiasis Diabetes Aortic aneurysm without rupture HTN (hypertension) Lactic acidosis Upper gastrointestinal bleed Diabetic neuropathy Osteomyelitis Ulcer of right great toe due to diabetes mellitus Pulmonary emboli HLD (hyperlipidemia) RBBB (right bundle 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) Home Medications ?Medication ?Instructions ?Recorded ?Last Taken ?Type losartan 50 mg tablet 50 mg PO DAILY blood pressure 03/24/18 06/01/24 History atorvastatin 40 mg tablet 40 mg PO QHS cholesterol 05/22/18 05/31/24 History tamsulosin 0.4 mg capsule 0.4 mg PO QHS PROSTATE 03/02/22 05/31/24 History cholecalciferol (vitamin D3) 1,250 1,250 mcg PO MO SUPPLEMENT 01/21/23 06/01/24 History mcg (50,000 unit) tablet pantoprazole 40 mg tablet,delayed 40 mg PO BID #60 tabs 02/05/23 06/01/24 Rx release sucralfate 1 gram tablet 1 g PO 0700,1100,1600 #90 tabs 02/05/23 06/01/24 Rx melatonin 3 mg tablet 3 mg PO QHS PRN Insomnia 02/10/23 02/10/23 History memantine 10 mg tablet 10 mg PO BID #0 tabs 02/13/23 06/01/24 Rx bisacodyl 10 mg rectal suppository 10 mg WA DAILY PRN constipation 05/30/23 Unknown History acetaminophen 325 mg tablet 650 mg PO .q12hrs PAIN AND FEVER 10/07/23 06/01/24 History ferrous sulfate 325 mg (65 mg 325 mg PO DAILY 10/07/23 06/01/24 History iron) tablet apixaban 5 mg tablet (Eliquis) 5 mg PO BID #60 tabs 03/03/24 05/30/24 Rx ipratropium 0.5 mg-albuterol 3 mg 3 ml inhalation Q4H PRN shortness 02/02/25 Unknown History (2.5 mg base)/3 mL nebulization of breath soln metoprolol succinate 25 mg capsule 25 mg PO DAILY 02/02/25 Unknown History sprinkle, ext. release 24 hr (Kapspargo Sprinkle) clopidogrel 75 mg tablet 75 mg PO DAILY 90 days #0 tabs 02/11/25 Unknown Rx arginine 7 gram-glutamine 7 PO BID 02/27/25 Unknown History gram-calcium HMB 1.5 gram oral powder pack (Luis) insulin glargine 100 unit/mL (3 18 unit subcut DAILY diabetes 02/27/25 Unknown History mL) subcutaneous pen (Lantus Solostar U-100 Insulin) paroxetine HCl 20 mg tablet (Paxil) 20 mg PO DAILY 02/27/25 Unknown History Allergy/AdvReac Type Severity Reaction Status Date / Time propofol AdvReac Other Verified 02/27/25 18:27 Family History Mother Heart disease Diabetes Hypertension Father Heart disease Surgical History History of AAA (abdominal aortic aneurysm) repair History of foot surgery Hx of abdominal surgery H/O aortic valve repair History of thoracic aortic aneurysm repair Social History housing: [facility] current occupational status: retired Smoking Status: Never smoker alcohol intake: never substance use type: does not use ROS ROS ED ROS Narrative Review of systems is unobtainable from the patient secondary to his altered mental status EXAM Physical Exam Narrative Exam Narrative: General: Patient lying in bed rest comfortably did not appear to be in acute distress Head: Atraumatic, normocephalic Eyes: PERRL bilaterally, EOMI bilaterally, no conjunctival injection noted Neck: Soft, supple, trachea midline Cardiovascular: Regular rate and rhythm Respiratory: Clear to auscultation bilaterally Abdomen: Soft, nondistended, no tenderness to palpation Extremities: +4/5 strength noted in the bilateral lower extremities, DP pulses +2/4 in the bilateral extremities Neurological: Patient was able tell me his name however he was confused on the year, and what season we are in Skin: Warm, dry Const Vital Signs: 02/27/25 18:27 02/27/25 18:30 02/27/25 19:04 Temperature 98.6 F 98.6 F Temperature Source Oral Oral Pulse Rate 77 79 Respiratory Rate 11 L 12 Blood Pressure 132/77 H 136/81 H Blood Pressure Mean 95 99 Pulse Ox 96 96 97 Oxygen Delivery Method Room Air Room Air Room Air 02/27/25 19:30 02/27/25 20:00 02/27/25 20:25 Temperature 99 F 99 F Temperature Source Axillary Axillary Pulse Rate 82 80 80 Respiratory Rate 17 14 14 Blood Pressure 152/83 H 156/90 H 156/90 H Blood Pressure Mean 106 112 112 Pulse Ox 96 97 97 Oxygen Delivery Method Room Air Room Air MDM MDM MDM Narrative Medical decision making narrative: Patient is a 79-year-old male who presents to the emergency department chief complaint of altered mental status. On the differential diagnose includes but not limited to intracranial hemorrhage, electrolyte abnormality, hypoglycemia, osteomyelitis of the left foot. Once the workup is obtained reviewed he will be reevaluated. Patient was given 30 cc/kg bolus of IV fluids based on ideal body weight as he has a BMI of greater than 30 he will be given a total of 2500 mL. Patient CBC reviewed and showed a leukocytosis of 12,000 likely reactive, hemoglobin 12.3, platelet count of 234. Patient INR normal 1.2, PT 15.1. Patient sodium normal 130, potassium normal at 4.2, creatinine was at his baseline around 1.49. Patient's AST and ALT are 14 and 21 respectively. Patient urinalysis reviewed showed no evidence of infection. Patient CT head brain without contrast showed no acute abnormalities. Patient's x-ray of his chest reviewed by myself by radiology showed no acute cardiopulmonary processes. Patient's x-ray of his foot was also reviewed by myself by radiology which showed prior surgical amputation of the fifth MTP joint no radiographic evidence of osteomyelitis. Patient EKG reviewed showed atrial sensed ventricular paced rhythm with a rate of 70 bpm no Sgarbossa criteria were met. Discussed the results with the patient's at bedside and she would like to have him sent back to the facility. States that they are concerned to make sure that he does not have osteomyelitis. Once again she states that his mental status changes been going on for at least 3 weeks since his surgery and is not new. Advised return with worsening symptoms or concerns. All question concerns answered he was discharged home in stable condition. Lab Data Labs: Laboratory Results - last 24 hr 02/27/25 02/27/25 19:25 19:42 WBC 12.7 H RBC 4.51 L Hgb 12.3 L Hct 38.8 L MCV 86.0 MCH 27.3 MCHC 31.7 L RDW Std Deviation 42.7 RDW Coeff of Nathaniel 13.8 Plt Count 234 MPV 9.4 Immature Gran % (Auto) 0.800 Neut % (Auto) 71.2 H Lymph % (Auto) 14.2 L [place] % (Auto) 6.1 Eos % (Auto) 7.1 H Baso % (Auto) 0.6 Absolute Neuts (auto) 9.0 H Absolute Lymphs (auto) 1.80 Nucleated RBC % 0 PT 15.1 H INR 1.2 APTT 29.4 Sodium 138 Potassium 4.2 Chloride 98 Carbon Dioxide 27.8 Anion Gap 12 BUN 51 H Creatinine 1.49 H Estim Creat Clear Calc 54.14 Est GFR (MDRD) Non-Af 48 L BUN/Creatinine Ratio 34.0 H Glucose 176 H Lactic Acid 1.5 Calcium 9.9 Total Bilirubin 0.47 AST 14 ALT 21 Alkaline Phosphatase 107 Total Protein 6.6 Albumin 3.9 Globulin 2.7 Albumin/Globulin Ratio 1.4 Urine Color Straw Urine Clarity Clear Urine pH 6.0 Ur Specific Echo 1.010 Urine Protein 15 H Urine Glucose (UA) Normal Urine Ketones Negative Urine Occult Blood Negative Urine Nitrite Negative Urine Bilirubin Negative Urine Urobilinogen Normal Ur Leukocyte Esterase Negative Urine RBC 0 SEEN Urine WBC 0 SEEN Ur Squamous Epith Cells 0 SEEN Urine Bacteria 0 SEEN Urine Mucus 0 SEEN Radiography Diagnostic Testing: Clinical Impression(s) from Imaging Studies Foot X-Ray 02/27/25 19:04 IMPRESSION: 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 No radiographic evidence for osteomyelitis. If there is persistent clinical concern MRI or nuclear bone scan would have superior sensitivity. Reading Location: [id number] Brain CT 02/27/25 20:00 IMPRESSION: No acute abnormality. Maxillary sinus mucosal thickening Reading Location: [facility] Chest X-Ray 02/27/25 20:20 IMPRESSION: No evidence of acute cardiopulmonary disease. Reading Location: [id number] Discharge Plan Triage Chief Complaint: Alt LOC ED Provider: Bennett Troncoso Dx/Rx/DC Orders Clinical Impression: Diabetes, HTN (hypertension), Confusion, Atrial fibrillation Prescriptions: No Action ferrous sulfate 325 mg (65 mg iron) tablet 325 mg PO DAILY losartan 50 MG tablet 50 mg PO DAILY atorvastatin 40 MG tablet 40 mg PO QHS tamsulosin 0.4 mg capsule 0.4 mg PO QHS Patient Comments: TAKE 1 CAPSULE BY MOUTH EVERYDAY AT BEDTIME sucralfate 1 gram Tablet 1 g PO 0700,1100,1600 Qty: 90 2RF pantoprazole 40 mg tablet,delayed release (DR/EC) 40 mg PO BID Qty: 60 2RF melatonin 3 mg Tablet 3 mg PO QHS PRN (Reason: Insomnia) Patient Comments: PRN PER CORRECTION MAR. memantine 10 mg Tablet 10 mg PO BID Qty: 0 0RF acetaminophen 325 mg tablet 650 mg PO .q12hrs Patient Comments: PRN PER CORRECTION MAR bisacodyl 10 mg suppository 10 mg WA DAILY PRN (Reason: constipation) cholecalciferol (vitamin D3) 1,250 mcg (50,000 unit) tablet 1,250 mcg PO MO ipratropium-albuterol 0.5 mg-3 mg(2.5 mg base)/3 mL solution for nebulization 3 ml inhalation Q4H PRN (Reason: shortness of breath) Patient Comments: [NO ORIGINAL SIG] Kapspargo Sprinkle 25 mg capsule,sprinkle,ER 24hr 25 mg PO DAILY clopidogrel 75 mg Tablet 75 mg PO DAILY 90 Days Qty: 0 0RF Luis 7-7-1.5 gram powder in packet PO BID Rx Instructions: packet orally; give 1 packet orally by mouth bid paroxetine HCl [Paxil] 20 mg tablet 20 mg PO DAILY insulin glargine [Lantus Solostar U-100 Insulin] 100 UNITS/ML insulin pen 18 unit subcut DAILY Eliquis 5 mg tablet 5 mg PO BID Qty: 60 11RF Primary Care Provider: Kuldip Cosby Referrals: Kuldip Cosby, [facility] [Primary Care Provider] - Activity Restrictions/Additional Instructions: Blood work did not show any acute findings here today. X-ray did not show any evidence of osteomyelitis of his foot. His head CT did not show any acute findings either. Return with worsening symptoms or any concerns. Print Language: Syrian Disposition Disposition: Home, Self Care
--- NOTE | 2025-02-27 20:20 | RAD_ITS ---
PROCEDURE: CHEST PA AND LATERAL 02/27/2025 REASON FOR EXAM: SOB TECHNIQUE: CHEST PA AND LATERAL COMPARISON: 02/02/2025 FINDINGS: Devices: Left chest wall dual lead ICD in appropriate positioning. Lungs/Pleura: Clear. No focal airspace consolidation, pneumothorax or pleural effusion. Heart/Mediastinum: Mildly enlarged. Sternotomy wires. Bones/Soft tissues: Mild degenerative changes of the thoracic spine. RAD/Chest PA and Lateral IMPRESSION: No evidence of acute cardiopulmonary disease. Reading Location: [id number]
--- NOTE | 2025-02-27 21:52 | ED.RN ---
Updated [facility] home on pt's d/c status, eta, and test results from ER visit
[2025-02-28] VITALS: PULSE 83; RESP 14; O2SAT 96
== END 2025-02-28 00:53 | disposition skilled nursing facility (03) ==
PROVIDERS: Emergency Provider Emergency Medicine; PCP Nurse Practitioner Adult Health; Visit Provider Emergency Medicine
DX: R41.0 Disorientation, unspecified (principal); I48.91 Unspecified atrial fibrillation; E11.9 Type 2 diabetes mellitus without complications; Z79.4 Long term (current) use of insulin; I10 Essential (primary) hypertension; Z79.01 Long term (current) use of anticoagulants; Z79.02 Long term (current) use of antithrombotics/antiplatelets; Z79.899 Other long term (current) drug therapy; Z86.16 Personal history of COVID-19; Z86.711 Personal history of pulmonary embolism
CPT/HCPCS: 51702; 70450; 71046; 73630; 80053; 81001; 83605; 85025; 85610; 85730; 87040; 87086; 87149; 93005; 96360; 96361; 99285; A4216

== ENCOUNTER → 2025-03-03 05:00 | Outpatient (REF) | payer MEDICARE, OTHER, SELFPAY ==
--- OUTSIDE RECORDS SUMMARY | 2025-03-03 04:35 | XMS RPT_ITS | CCD ---
Author Organization [facility] Care Team Providers Care Automatic Profile Shaper Operator Name Role Phone Abdulaziz Caldera MD [...] Dr. Luis Caldera Primary Care Provider [phone] Dr. Karen Aly Admit Provider Dr. Karen [...] Referring Provider Dr. Smith Leija Referring Provider [phone] Marcos DANIEL, AAYUSH Juarez Attending Provider Dr. Luis Caldera Primary Care Provider Dr. Karen Aly Admit Provider Dr. Karen Aly Other Provider Dr. Karen Aly Attending Provider Dr. Gabriel Giraldo Other Provider Enzo, Dr. Rios Attending Provider Dr. Luis Caldera Primary Care Provider [phone] Dr. Dandy Sauer Emergency Provider Earnest, Dr. [...] Dr. Luis Caldera Primary Care Provider [phone] Dr. Syed Allen Emergency Provider Dr. Karen Aly Admit Provider Dr. Karen Aly Other Provider Dr. Yisel Rendon Attending Provider Dr. Yisel Rendon Other Provider Roxann, Dr. Hatfield Attending Provider Dr. Caryl Mcdermott Referring Provider Dr. Júnior Chandra Attending Provider Dr. Júnior Chandra Referring Provider Dr. Dandy Sauer Emergency Provider Dr. Luis Caldera Primary Care Provider Dr. Syed Allen Emergency Provider [phone] Dr. Karen Aly Admit Provider Dr. Karen Aly Other Provider Dr. Yisel Rendon Attending Provider Dr. Yisel Rendon Other Provider Dr. Olga Lidia Rasheed Other Provider Dr. Luis Caldera Primary Care Provider [phone] Dr. Luis Caldera Referring Provider Debi Wetzel Attending Provider Unavailable Marcos REFERRAL SPECIALIST, REFERRAL SPECIALIST-C Ann Attending Provider Dr. Luis Caldera Primary Care Provider Dr. Luis Caldera Referring Provider Dr. Olga Lidia Rasheed Attending Provider Verenice COLBERT, Dr. Smith Primary Care Provider Rosita COLBERT, Walter Attending Provider Unavailable Rosita COLBERT, Walter Referring Provider Unavailable Verenice COLBERT, Dr. Smith Referring Provider Wili COLBERT, Dr. Duggan Attending Provider Verenice COLBERT, Dr. Smith Primary Care Provider Rosita COLBERT, Walter Attending Provider Unavailable Rosita COLBERT, Walter Referring Provider Unavailable Dr. Nicholas Galarza DO Emergency Provider Harjeet REFERRAL SPECIALIST-CKuldip Primary Care Provider Jermain COLBERT, Dr. Karen Juan Admit Provider Jermain COLBERT, Dr. Karen Juan Attending Provider Verencie COLBERT, Dr. Smith Primary Care Provider Rosita COLBERT, Walter Attending Provider Unavailable Rosita COLBERT, Walter Referring Provider Unavailable Dr. Nicholas Galarza DO Emergency Provider Harjeet REFERRAL SPECIALIST-CKuldip Primary Care Provider Jermain COLBERT, Dr. Karen Juan Admit Provider Jermain COLBERT, Dr. Karen Juan Other Provider Roberto SCHUMACHER, Dr. Sweet Other Provider Billy COLBERT, Dr. Hugo Govea Attending Provider Dr. Aneesh Ac MD Other Provider Heladio COLBERT, Dr. Mtz Other Provider Billy COLBERT, Dr. Hugo Govea Other Provider Osorio COLBERT, Dr. Melendrez Attending Provider [phone] Meghana Valdivia Attending Provider [phone] oCrazon COLBERT, Dr. Callejas Attending Provider [phone] Osorio COLBERT, Dr. Melendrez Referring Provider Karyna DUVALL, Dr. Guajardo Emergency Provider [phone] Holdrege, Kuldip Primary Care Unavailable Júnior Chandra Attending Unavailable Aneesh Ac Referring Unavailable Bursley, Luis Primary Care Unavailable Deperro OLS, Walter Referring Unavailable Deperro OLS, Walter Attending Unavailable Bursley, Luis Primary Care Unavailable Deperro OLS, Walter Attending Unavailable Bursley, Luis Primary Care Unavailable Deperro OLS, Walter Attending Unavailable Bursley, Luis Primary Care Unavailable Deperro OLS, Walter Attending Unavailable Harjeet, Kuldip Primary Care Unavailable Deperro OLS, Walter Attending Unavailable Deperro OLS, Walter Attending Unavailable Holdrege, Kuldip Primary Care Unavailable Deperro OLS, Walter Attending Unavailable Holdrege, Kuldip Primary Care Unavailable Harjeet, Kuldip Primary Care Unavailable White, Karen L Admitting Unavailable Wujackieing, Kee Consulting Unavailable SonyaonisArias F Attending Unavailable White, Karen L Consulting Unavailable Osorio, Aneesh Consulting Unavailable Smith Leija Consulting Unavailable Bursley, Luis Primary Care Unavailable Deperro OLS, Walter Attending Unavailable Deperro OLS, Walter Attending Unavailable Harjeet, Kuldip Primary Care Unavailable Deperro OLS, Walter Attending Unavailable Holdrege, Kuldip Primary Care Unavailable Deperro OLS, Walter Attending Unavailable Harjeet, Kuldip Primary Care Unavailable Bursley, Luis Primary Care Unavailable Deperro OLS, Walter Attending Unavailable Bursley, Luis Primary Care Unavailable Deperro OLS, Walter Attending Unavailable Deperro OLS, Walter Referring Unavailable Bursley, Luis Primary Care Unavailable Deperro OLS, Walter Attending Unavailable Bursley, Luis Primary Care Unavailable Deperro OLS, Walter Attending Unavailable Deperro OLS, Walter Attending Unavailable Holdrege, Kuldip Primary Care Unavailable Amilcaring, Kee Consulting Unavailable Holdrege, Kuldip Primary Care Unavailable White, Karen L Admitting Unavailable ElisesTundeHugo F Attending Unavailable White, Karen L Consulting Unavailable Osorio, Aneesh Consulting Unavailable Hugo Cervantes Consulting Unavailable Bursley, Luis Primary Care Unavailable Rosita MAYORGA, Walter Attending Unavailable Holdrege, Kuldip Primary Care Unavailable Bennett Troncoso Attending Unavailable Bursley, Luis Primary Care Unavailable Deperro TIERRA, Walter Referring Unavailable Depfabienneo TIERRA, Walter Attending Unavailable Bursley, Luis Primary Care Unavailable Kee Merritt Referring Unavailable Kee Merritt Attending Unavailable Peaceley, Luis Primary Care Unavailable Rosita MAYORGA, Walter Attending Unavailable Aneesh Ac Attending Unavailable Smith Leija Consulting Unavailable Douglas, Meghana Attending Unavailable Karen Aly Attending Unavailable Holdrege, Kuldip Primary Care Unavailable Harjeet, Kuldip Referring Unavailable Meghana Cole Attending Unavailable Harjeet, Kuldip Referring Unavailable Holdrege, Kuldip Primary Care Unavailable Deangelo Thomson NP Attending Unavailable Harjeet, Kuldip Primary Care Unavailable Aneesh Ac Attending Unavailable Olga Lidia Rasheed Attending Unavailable Bursley, Luis Referring Unavailable Bursley, Luis Primary Care Unavailable Bursley, Luis Primary Care Unavailable Bursley, Luis Referring Unavailable Olga Lidia Rasheed Attending Unavailable Deperro TIERRA, Walter Attending Unavailable Bursley, Luis Primary Care Unavailable Bursley, Luis Primary Care Unavailable Rosita MAYORGA, Walter Attending Unavailable Allergies Allergy Classification Reported Allergen(s) Allergy Type Date of Onset Reaction(s) Facility (20 sources) pantoprazole Drug Allergy 09-24-2019 Diarrhea [facility] (20 sources) Propofol Drug Allergy 12-06-2021 Other [facility] Comment on above: GETS AGGRESSIVE (1 source) Propofol Drug Allergy 02-27-2025 [facility] Repository Medications Current Medications Medication Drug Class(es) Dates Sig (Normalized) Sig (Original) acetaminophen 325 mg oral tablet (20 sources) Start: 02-11-2023 End: 10-07-2023 take 2 tablets [...] Start: 01-08-2023 End: 10-07-2023 Start: 01-08-2023 End: 10-07-2023 Start: 01-08-2023 End: [...] / ipratropium bromide 0.167 mg/ml inhalation solution (3 sources) Anticholinergic, beta2-Adrenergic Agonist Start: 02-02-2025 Start: 02-02-2025 take 1 mL by inhalat ion every four hours as needed Ipratropium-Albuterol 0.5 mg-3 mg(2.5 mg base)/3 mL solution for nebulization Active 3 mL INHALATION Q4H as needed for shortness of breath February 02, 2025 12:00am apixaban 5 mg oral tablet (5 sources) Factor Xa Inhibitor Start: 03-03-2024 ascorbic [...] Comment on above: [facility] FOR CHOLESTEROL. bisacodyl 10 mg [...] Comment on above: Take 1 capsule by [facility] one time a week. clopidogrel 75 mg oral table t (2 sources) P2Y12 Platelet Inhibitor Start: 02-11-2025 docusate sodium 50 mg / sennosides, [facility] 8.6 mg oral tablet (12 sources) Start: 01-26-2023 Start: 01-26-2023 take 2 tablets by mo [facility] twice daily Sennosides-Docusate Sodium (Stool Softener-Stimulant Laxat) [...] 11, 2022 5:01pm diabetes Start: 04-01-2018 End: 02-27-2025 Start: 04-01-2018 End: 05-22-2018 Insulin Glargine (Lantus [...] 05-22-2018 End: 01-08-2023 Start: 09-16-2013 End: 09-19-2013 losartan potassium 50 mg ora l tablet [...] hydrochloride 10 mg oral tablet (20 sources) J-mnmwot-X-aspartate Receptor Antagonist Start: 01-26-2023 End: 02-13-2023 Start: 01-26-2023 End: 02-13-2023 take 1 tablet by mouth once daily in the evening Memantine 10 mg tablet Discontinued 10 mg PO EVERY EVENING 30 30 0 January 26, 2023 12:00am February 13, 2023 2:15pm menthol 0.05 mg/mg topical g el (10 sources) Start: 02-10-2023 24 hr metoprolol succinate 2 5 mg extended release oral capsule (20 sources) beta-Adrenergic Red Start: 02-02-2025 Start: 03-27-2023 End: 02-02-2025 Start: 09-16-2013 End: 01-26-2023 Comment on above: Take 1 tablet by [facility] once daily. mupirocin 0.02 mg/mg topical [...] 02-05-2023 Start: 01-11-2019 End: 03-17-2019 PARoxetine hydrochloride 20 mg oral tablet (6 sources) Serotonin Reuptake Inhibitor Start: 02-27-2025 Start: 04-07-2024 End: 02-27-2025 perflutren lipid microsphere s 1.3 mL in NaCl (PF) 0.9% 10 mL injection (DEFINITY) (20 sources) Start: 07-02-2022 End: 10-01-2023 perflutren lipid microsphere s 1.3 mL in [...] Comment on above: Take 1 capsule by [facility] daily at bedtime. (17 sources) Start: 02-27-2025 Start: 10-07-2023 Start: 01-21-2023 Completed/Discontinued Medications Medication [...] NEEDED as needed for Pain 12 3 March 17, 2019 March 19, 2019 12:00am [...] 01-21-2023 End: 01-26-2023 Start: 01-08-2023 End: 01-26-2023 doxycycline monohydrate 100 mg oral capsule (2 sources) Tetracycline-class Drug Start: 02-11-2025 End: 02-27-2025 0.5 ml dulaglutide 3 mg/ml auto-injector (20 [...] Converting Enzyme Inhibitor Start: 09-16-2013 End: 09-19-2013 loperamide hydrochloride 2 m g oral capsule (20 sources) Opioid Agonist Start: 05-30-2023 End: 02-27-2025 metFORMIN hydrochloride 1000 mg oral tablet (20 sources) Biguanide Start: 01-21-2023 End: 02-27-2025 Start: 11-24-2021 End: 02-18-2023 take 2 tablets [...] Start: 05-22-2021 take 2 tablets by mo ut twice daily at mealtime metFORMIN ER (GLUCOPHAGE [...] with breakfast. Take 1 tablet by sajan daily with breakfast. pioglitazone 30 mg oral tabl et (20 [...] 12-06-2021 Warfarin Activ e 10 MG PO SUDecember 06, 2021 11:57pm pt and family unsure [...] Translations: [Thoracic aortic aneurysm, without rupture] Onset: Chronic Bacterial infection; unspecified site (20 sources) Bacteremia; Translations: [Bacteremia] 02-11-2023 Episodic Calculus of urinary tract (20 sources) Ureteric stone; Translations: [Calculus of ureter] 03-19-2019 Episodic Cardiac dysrhythmias (20 sources) Paroxysmal atrial fibrillation; Translations: [Paroxysmal atrial fibrillation] Onset: 3 12-03-2022 Chronic Comment on above: This happened "a toni g time ago and he had [...] Coronary atherosclerosis; Translations: [Atherosclerotic heart disease of [place] coronary artery without angina pectoris] Chronic Deficiency [...] 1 10-26-2020 Chronic Diabetes mellitus without complication (10 sources) Type 2 diabetes mellitus; Translations: [Type [...] sources) Long-term current use of anticoagulant; Translations: [[facility] (current) use of anticoagulants] Onset: 8 11-06-2018 [...] rep air 2006. Peripheral and visceral atherosclerosis (6 sources) Peripheral vascular disease, unspecified; Translations: [Peripheral arterial disease] Onset: 4 02-04-2025 Chronic Pneumonia (except that caused by tuberculosis or sexually transmitted disease) (7 sources) Pneumonia; Translations: [Pneumonia, unspecified organism] Onset: [...] unspecified organism; Translations: [Sepsis, unspecified organism] Onset: 5 Episodic Shock (1 source) Hemorrhagic shock; Translations: [Other shock] Episodic Skin and subcutaneous tissue infections (5 sources) Cellulitis of left lower limb; Translations: [...] 03-20-2019 03-20-2019 Episodic Other aftercare (1 source) 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; 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] Onset: 03-09-2024 Episodic Other nervous system disorders (20 sources) Abnormal gait due to impairment of balance; Translations: [Other abnormalities of gait and mobility] Onset: 01-12-2022 Episodic Unclassified (20 sources) RBBB (right bundle 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) 12-27-2021 Results Test Name Value Interpretation Reference Range Facility GPC IDon 03-01-2025 GPC ID Normal [facility] Comment on above: Performed By: #### L 503.6005, L500.4050, M200.1000, L300.4310, L100.0100, L300.3900, M100.636 ####[facility] [address] [place], [place], [id number] Culture, Blood (WB)on 2024 CUB Blood cultures x2, from two different sites AEROBIC BOTTLE GRAM STAIN= GRAM POSITIVE COCCI IN CLUSTERS Culture, Blood (WB) RESULTS CALLED TO JACEY PRESTON 03/01/25 0916 Anai Reyes. REPORT READ BACK BY SAME. Normal [facility] Comment on above: Performed By: #### L 503.6005, L500.4050, M200.1000, L300.4310, L100.0100, L300.3900, M100.636 ####[facility] [address] [place], [place], [id number] Urine Cultureon 02-28-2025 [facility] Culture exhibits no growth. Normal [facility] Comment on above: Performed By: #### M 100.2200, L400.0001 ####[facility] [address] [place], [place], [id number] Absolute lymphocyte countOrd ered By: Bennett Troncoso on 02-27-2025 Lymphocytes Auto (Unsp spec) [#/Vol] 1.80 10*3/uL 0.83-4.51 [facility] Activated partial thrombopla stin time (aPTT) in platelet poor plasma by coagulation aOrdered By: Bennett Troncoso on 02-27-2025 aPTT Coag (PPP) [Time] 29.4 s 24.1-36.2 [facility] Anion gap in Serum or Plasma Ordered By: Bennett Troncoso on 02-27-2025 Anion gap [Moles/Vol] 12 mmol/L 5-15 [facility] Automated lymphocyte count a s percentage of total leukocytesOrdered By: Bennett Troncoso on 02-27-2025 Lymphocytes/100 WBC Auto (Unsp spec) 14.2 % Low 19-41 [facility] BUN/creatinine ratioOrdered By: Bennett Troncoso on 02-27-2025 Urea nitrogen/Creatinine [Mass ratio] 34.0 mg/mg High 10-20 [facility] Basophil percentageOrdered B y: Bennett Troncoso on 02-27-2025 Basophils/100 WBC (Bld) 0.6 % 0-1 [facility] Bilirubin Test strip Ql (U)O rdered By: Bennett Troncoso on 02-27-2025 Bilirubin Ql (U) Negative Negative [facility] Bilirubin, totalOrdered By: Bennett Troncoso on 02-27-2025 Bilirubin [Mass/Vol] 0.47 mg/dL 0.00-1.30 [facility] Brain/Head without Contrasto n 02-27-2025 Brain/Head without Contrast Normal [facility] CBC W/Diff, Automatedon 02-12 Absolute Lymph 1.80 X10 3/uL Normal 0.83-4.51 [facility] Comment on above: Performed By: #### L 503.6005, L500.4050, M200.1000, L300.4310, L100.0100, L300.3900, M100.636 ####[facility] [address] [place], [address] Absolute Neut 9.0 X10 3/uL High 2.0-7.7 [facility] Comment on above: Performed By: #### L 503.6005, L500.4050, M200.1000, L300.4310, L100.0100, L300.3900, M100.636 ####[facility] [address] [place], [address] Basophils/100 WBC (Bld) 0.6 % Normal 0-1 [facility] Comment on above: Performed By: #### L 503.6005, L500.4050, M200.1000, L300.4310, L100.0100, L300.3900, M100.636 ####[facility] [address] [place], [address] Eosinophils/100 WBC (Bld) 7.1 % High 0-5 [facility] Comment on above: Performed By: #### L 503.6005, L500.4050, M200.1000, L300.4310, L100.0100, L300.3900, M100.636 ####[facility] [address] [place], [address] Erythrocyte distribution width (RBC) [Ratio] 13.8 % Normal 11.6-14.6 [facility] Comment on above: Performed By: #### L 503.6005, L500.4050, M200.1000, L300.4310, L100.0100, L300.3900, M100.636 ####[facility] [address] [place], [address] Hematocrit (Bld) [Volume fraction] 38.8 % Low 40-54 [facility] Comment on above: Performed By: #### L 503.6005, L500.4050, M200.1000, L300.4310, L100.0100, L300.3900, M100.636 ####[facility] [address] [place], [address] Hemoglobin (Bld) [Mass/Vol] 12.3 g/dL Low 13.0-16. 5 [facility] Comment on above: Performed By: #### L 503.6005, L500.4050, M200.1000, L300.4310, L100.0100, L300.3900, M100.636 ####[facility] [address] [place], [address] IG% 0.800 Normal 0.0-0.9 [facility] Comment on above: Result Comment: IG% - Immature Granulocytes (promyelocytes, myelocytes andmetamyelocytes) > 1% indicates that a LEFT SHIFT is Present. Performed By: #### L 503.6005, L500.4050, M200.1000, L300.4310, L100.0100, L300.3900, M100.636 ####[facility] [address] [place], [address] Lymphocytes/100 WBC (Bld) 14.2 % Low 19-41 [facility] Comment on above: Performed By: #### L 503.6005, L500.4050, M200.1000, L300.4310, L100.0100, L300.3900, M100.636 ####[facility] [address] [place], [address] MCH (RBC) [Entitic mass] 27.3 pg Normal 27.0-32.0 [facility] Comment on above: Performed By: #### L 503.6005, L500.4050, M200.1000, L300.4310, L100.0100, L300.3900, M100.636 ####[facility] [address] [place], [address] MCHC (RBC) [Mass/Vol] 31.7 g/dL Low 32-36 [facility] Comment on above: Performed By: #### L 503.6005, L500.4050, M200.1000, L300.4310, L100.0100, L300.3900, M100.636 ####[facility] [address] [place], [address] MCV (RBC) [Entitic vol] 86.0 fL Normal 80-94 [facility] Comment on above: Performed By: #### L 503.6005, L500.4050, M200.1000, L300.4310, L100.0100, L300.3900, M100.636 ####[facility] [address] [place], [address] Monocytes/100 WBC (Bld) 6.1 % Normal 0-10 [facility] Comment on above: Performed By: #### L 503.6005, L500.4050, M200.1000, L300.4310, L100.0100, L300.3900, M100.636 ####[facility] [address] [place], [address] Neutrophils/100 WBC (Bld) 71.2 % High 47-70 [facility] Comment on above: Performed By: #### L 503.6005, L500.4050, M200.1000, L300.4310, L100.0100, L300.3900, M100.636 ####[facility] [address] [place], [address] Nucleated RBC (Bld) [#/Vol] 0 10*3/uL Normal 0-5 [facility] Comment on above: Performed By: #### L 503.6005, L500.4050, M200.1000, L300.4310, L100.0100, L300.3900, M100.636 ####[facility] [address] [place], [address] Platelet mean volume (Bld) [Entitic vol] 9.4 fL Normal 6.2-12.0 [facility] Comment on above: Performed By: #### L 503.6005, L500.4050, M200.1000, L300.4310, L100.0100, L300.3900, M100.636 ####[facility] [address] [place], [address] Platelets (Bld) [#/Vol] 234 10*3/uL Normal 150-450 [facility] Comment on above: Performed By: #### L 503.6005, L500.4050, M200.1000, L300.4310, L100.0100, L300.3900, M100.636 ####[facility] [address] [place], [address] RBC (Bld) [#/Vol] 4.51 10*6/uL Low 4.6-6.2 [facility] Comment on above: Performed By: #### L 503.6005, L500.4050, M200.1000, L300.4310, L100.0100, L300.3900, M100.636 ####[facility] [address] [place], [address] RDW SD 42.7 fl Normal 35.1-43.9 [facility] Comment on above: Performed By: #### L 503.6005, L500.4050, M200.1000, L300.4310, L100.0100, L300.3900, M100.636 ####[facility] [address] [place], [address] WBC (Bld) [#/Vol] 12.7 10*3/uL High 4.4-11.0 [facility] Comment on above: Performed By: #### L 503.6005, L500.4050, M200.1000, L300.4310, L100.0100, L300.3900, M100.636 ####[facility] [address] [place], [address] Carbon dioxide, total [Moles /volume] in Central venous bloodOrdered By: Bennett Troncoso on 02-27-2025 CO2 [Moles/Vol] 27.8 mmol/L 21.0-32.0 [facility] Chest PA and Lateralon 02-27 Chest PA and Lateral Normal [facility] Chloride assayOrdered By: Johnny Troncoso on 02-27-2025 Chloride [Moles/Vol] 98 mmol/L 98-108 [facility] Comprehensive Metabolic Prof ilon 02-27-2025 Albumin [Mass/Vol] 3.9 g/dL Normal 3.4-4.8 [facility] Comment on above: Performed By: #### L 503.6005, L500.4050, M200.1000, L300.4310, L100.0100, L300.3900, M100.636 ####[facility] [address] [place], [address] Albumin/Globulin [Mass ratio] 1.4 {ratio} Normal 0.9-2.4 [facility] Comment on above: Performed By: #### L 503.6005, L500.4050, M200.1000, L300.4310, L100.0100, L300.3900, M100.636 ####[facility] [address] [place], [address] ALK PHOS 107 U/L Normal 40-129 [facility] Comment on above: Performed By: #### L 503.6005, L500.4050, M200.1000, L300.4310, L100.0100, L300.3900, M100.636 ####[facility] [address] [place], [address] ALT [Catalytic activity/Vol] 21 U/L Normal <=46 [facility] Comment on above: Performed By: #### L 503.6005, L500.4050, M200.1000, L300.4310, L100.0100, L300.3900, M100.636 ####[facility] [address] [place], [address] AST [Catalytic activity/Vol] 14 U/L Normal <=37 [facility] Comment on above: Performed By: #### L 503.6005, L500.4050, M200.1000, L300.4310, L100.0100, L300.3900, M100.636 ####[facility] [address] [place], [address] Bilirubin [Mass/Vol] 0.47 mg/dL Normal 0.00-1.30 [facility] Comment on above: Performed By: #### L 503.6005, L500.4050, M200.1000, L300.4310, L100.0100, L300.3900, M100.636 ####[facility] [address] [place], [address] BUN/CRE 34.0 RATIO High 10-20 [facility] Comment on above: Performed By: #### L 503.6005, L500.4050, M200.1000, L300.4310, L100.0100, L300.3900, M100.636 ####[facility] [address] [place], [address] Calcium [Mass/Vol] 9.9 mg/dL Normal 7.6-11.0 [facility] Comment on above: Performed By: #### L 503.6005, L500.4050, M200.1000, L300.4310, L100.0100, L300.3900, M100.636 ####[facility] [address] [place], [address] Chloride [Moles/Vol] 98 mmol/L Normal 98-108 [facility] Comment on above: Performed By: #### L 503.6005, L500.4050, M200.1000, L300.4310, L100.0100, L300.3900, M100.636 ####[facility] [address] [place], [address] CO2 [Moles/Vol] 27.8 mmol/L Normal 21.0-32.0 [facility] Comment on above: Performed By: #### L 503.6005, L500.4050, M200.1000, L300.4310, L100.0100, L300.3900, M100.636 ####[facility] [address] [place], [address] Creatinine [Mass/Vol] 1.49 mg/dL High 0.70-1.20 [facility] Comment on above: Performed By: #### L 503.6005, L500.4050, M200.1000, L300.4310, L100.0100, L300.3900, M100.636 ####[facility] [address] [place], [address] ECRCL 54.14 ml/min Normal 50-250 [facility] Comment on above: Performed By: #### L 503.6005, L500.4050, M200.1000, L300.4310, L100.0100, L300.3900, M100.636 ####[facility] [address] [place], [address] GAP 12 Normal 5-15 [facility] Comment on above: Performed By: #### L 503.6005, L500.4050, M200.1000, L300.4310, L100.0100, L300.3900, M100.636 ####[facility] [address] [place], [address] GFR/1.73 sq M.predicted among non-blacks MDRD (S/P/Bld) [Vol rate/Area] 48 mL/min/{1.73_m2} Low >60 [facility] Comment on above: Result Comment: mL/m in/1.73m2 CKD-EPI Creatinine Equation (2020) Performed By: #### L 503.6005, L500.4050, M200.1000, L300.4310, L100.0100, L300.3900, M100.636 ####[facility] [address] [place], [place], [address] Globulin (S) [Mass/Vol] 2.7 g/dL Normal 2.2-4.2 [facility] Comment on above: Performed By: #### L 503.6005, L500.4050, M200.1000, L300.4310, L100.0100, L300.3900, M100.636 ####[facility] [address] [place], [address] Glucose [Mass/Vol] 176 mg/dL High 70-99 [facility] Comment on above: Performed By: #### L 503.6005, L500.4050, M200.1000, L300.4310, L100.0100, L300.3900, M100.636 ####[facility] [address] [place], [address] Potassium [Moles/Vol] 4.2 mmol/L Normal 3.3-5.1 [facility] Comment on above: Performed By: #### L 503.6005, L500.4050, M200.1000, L300.4310, L100.0100, L300.3900, M100.636 ####[facility] [address] [place], [address] Sodium [Moles/Vol] 138 mmol/L Normal 133-145 [facility] Comment on above: Performed By: #### L 503.6005, L500.4050, M200.1000, L300.4310, L100.0100, L300.3900, M100.636 ####[facility] [address] [place], [address] T PROT 6.6 g/dL Normal 5.9-8.4 [facility] Comment on above: Performed By: #### L 503.6005, L500.4050, M200.1000, L300.4310, L100.0100, L300.3900, M100.636 ####[facility] [address] [place], [address] Urea nitrogen [Mass/Vol] 51 mg/dL High 4-19 [facility] Comment on above: Performed By: #### L 503.6005, L500.4050, M200.1000, L300.4310, L100.0100, L300.3900, M100.636 ####[facility] [address] [place], [address] Emergency Department Summary on 02-27-2025 Emergency Department Summary Normal [facility] Eosinophil percentageOrdered By: Bennett Troncoso on 02-27-2025 Eosinophils/100 WBC (Bld) 7.1 % High 0-5 [facility] Erythrocyte distribution wid th ratioOrdered By: Bennett Troncoso on 02-27-2025 Erythrocyte distribution width (RBC) [Ratio] 13.8 % 11.6-14.6 [facility] Erythrocyte distribution wid th standard deviationOrdered By: Bennett Troncoso on 02-27-2025 Erythrocyte distribution width (RBC) [Ratio] 42.7 fl 35.1-43.9 [facility] Foot min 3 Viewson Foot min 3 Views Normal [facility] Glomerular filtration rate ( GFR) estimation/1.73 sq m using serum, plasma, or whole bOrdered By: Bennett Troncoso on 02-27-2025 GFR/1.73 sq M.predicted among non-blacks MDRD (S/P/Bld) [Vol rate/Area] 48 mL/min/{1.73_m2} Low >60 [facility] Hematocrit Auto (Bld) [Volum e fraction]Ordered By: Bennett Troncoso on 02-27-2025 Hematocrit (Bld) [Volume fraction] 38.8 % Low 40-54 [facility] Hemoglobin measurementOrdere d By: Bennett Troncoso on 02-27-2025 Hemoglobin (Bld) [Mass/Vol] 12.3 g/dL Low 13.0-16. 5 [facility] Immature granulocytes/100 WB C Auto (Bld)Ordered By: Bennett Troncoso on 02-27-2025 Immature granulocytes/100 WBC (Bld) 0.800 % 0.0-0.9 [facility] Ketones Test strip Ql (U)Ord ered By: Bennett Troncoso on 02-27-2025 Ketones Ql (U) Negative Negative [facility] Lactic Acidon 02-27-2025 Lactate [Moles/Vol] 1.5 mmol/L Normal 0.0-2.0 [facility] Comment on above: Order Comment: Y Performed By: #### L 503.6005, L500.4050, M200.1000, L300.4310, L100.0100, L300.3900, M100.636 ####[facility] [address] [place], [address] MCV (mean corpuscular volume ) determinationOrdered By: Bennett Troncoso on 02-27-2025 MCV (RBC) [Entitic vol] 86.0 fL 80-94 [facility] Mean corpuscular hemoglobin (MCH) determinationOrdered By: Bennett Troncoso on 02-27-2025 MCH (RBC) [Entitic mass] 27.3 pg 27.0-32.0 [facility] Monocyte percentageOrdered B y: Bennett Troncoso on 02-27-2025 Monocytes/100 WBC (Bld) 6.1 % 0-10 [facility] Mucus LM Ql (Urine sed)Order ed By: Bennett Troncoso on 02-27-2025 Mucus Ql (Urine sed) 0 SEEN /hpf [facility] Neutrophil percentageOrdered By: Bennett Troncoso on 02-27-2025 Neutrophils/100 WBC (Bld) 71.2 % High 47-70 [facility] Nitrite Test strip Ql (U)Ord ered By: Bennett Troncoso on 02-27-2025 Nitrite Ql (U) Negative Negative [facility] No Panel InformationOrdered By: Bennett Troncoso on 02-27-2025 14 U/L <38 [facility] Partial Thromboplast Timeon 02-27-2025 aPTT Coag (Bld) [Time] 29.4 s Normal 24.1-36.2 [facility] Comment on above: Performed By: #### L 503.6005, L500.4050, M200.1000, L300.4310, L100.0100, L300.3900, M100.636 ####[facility] [address] [place], [place], [id number] Platelet countOrdered By: Johnny Troncoso on 02-27-2025 Platelets (Bld) [#/Vol] 234 10*3/uL 150-450 [facility] Potassium measurement (mass/ volume)Ordered By: Bennett Troncoso on 02-27-2025 Potassium (Unsp spec) [Mass/Vol] 4.2 mmol/L 3.3-5.1 [facility] Protein Test strip Ql (U)Ord ered By: Bennett Troncoso on 02-27-2025 Protein Ql (U) 15 mg/dl High Negative [facility] Prothrombin Time w/INRon INR Coag (PPP) [Relative time] 1.2 {INR} Normal [facility] Comment on above: Performed By: #### L 503.6005, L500.4050, M200.1000, L300.4310, L100.0100, L300.3900, M100.636 ####[facility] [address] [place], [place], [id number] PT Coag (PPP) [Time] 15.1 s High 11.7-14.9 [facility] Comment on above: Performed By: #### L 503.6005, L500.4050, M200.1000, L300.4310, L100.0100, L300.3900, M100.636 ####[facility] [address] [place], [place], [id number] Prothrombin timeOrdered By: Bennett Troncoso on 02-27-2025 PT Coag (PPP) [Time] 15.1 s High 11.7-14.9 [facility] RBC Auto (Bld) [#/Vol]Ordere d By: Bennett Troncoso on 02-27-2025 RBC (Bld) [#/Vol] 4.51 10*6/uL Low 4.6-6.2 [facility] Serum creatinine measurement (mass/volume)Ordered By: Bennett Troncoso on 02-27-2025 Creatinine [Mass/Vol] 1.49 mg/dL High 0.70-1.20 [facility] Serum globulin measurementOr dered By: Bennett Troncoso on 02-27-2025 Globulin (S) [Mass/Vol] 2.7 g/dL 2.2-4.2 [facility] Serum glucose measurement (m ass/volume)Ordered By: Bennett Troncoso on 02-27-2025 Glucose [Mass/Vol] 176 mg/dL High 70-99 [facility] Serum or plasma alanine davis otransferase (ALT) measurementOrdered By: Bennett Troncoso on 02-27-2025 ALT [Catalytic activity/Vol] 21 U/L <47 [facility] Serum or plasma albumin antoine urement (mass/volume)Ordered By: Bennett Troncoso on 02-27-2025 Albumin [Mass/Vol] 3.9 g/dL 3.4-4.8 [facility] Serum or plasma albumin/glob ulin mass ratioOrdered By: Bennett Troncoso on 02-27-2025 Albumin/Globulin [Mass ratio] 1.4 {ratio} 0.9-2.4 [facility] Serum or plasma alkaline marilin sphatase measurementOrdered By: Bennett Troncoso on 02-27-2025 ALP [Catalytic activity/Vol] 107 U/L 40-129 [facility] Serum or plasma calcium antoine urement (mass/volume)Ordered By: Bennett Troncoso on 02-27-2025 Calcium [Mass/Vol] 9.9 mg/dL 7.6-11.0 [facility] Serum or plasma urea nitroge n measurement (mass/volume)Ordered By: Bennett Troncoso on 02-27-2025 Urea nitrogen [Mass/Vol] 51 mg/dL High 4-19 [facility] Sodium levelOrdered By: Teodora Troncoso on 02-27-2025 Sodium [Moles/Vol] 138 mmol/L 133-145 [facility] Squamous epithelial cells de tection in urine sediment by light microscopyOrdered By: Bennett Troncoso on 02-27-2025 Epithelial cells.squamous LM Ql (Urine sed) 0 SEEN /hpf 0-5 [facility] Total proteinOrdered By: Brook Troncoso on 02-27-2025 Protein [Mass/Vol] 6.6 g/dL 5.9-8.4 [facility] Urinalysis, Completeon 02-27 BACTERIA 0 SEEN Normal None Seen [facility] Comment on above: Order Comment: COLLE CTOR TO SPECIFY Performed By: #### M 100.2200, L400.0001 ####[facility] [address] [place], [address] EPI,SQUAMOUS 0 SEEN Normal 0-5 [facility] Comment on above: Order Comment: COLLE CTOR TO SPECIFY Performed By: #### M 100.2200, L400.0001 ####[facility] [address] [place], [address] Mucus Ql (Urine sed) 0 SEEN Normal [facility] Comment on above: Order Comment: COLLE CTOR TO SPECIFY Performed By: #### M 100.2200, L400.0001 ####[facility] [address] [place], [address] RBC 0 SEEN Normal 0-5 [facility] Comment on above: Order Comment: BRIANNA CTOR TO SPECIFY Performed By: #### M 100.2200, L400.0001 ####[facility] [address] [place], [address] WBC 0 SEEN Normal 0-5 [facility] Comment on above: Order Comment: BRIANNA CTOR TO SPECIFY Performed By: #### M 100.2200, L400.0001 ####[facility] [address] [place], [address] Urine clarityOrdered By: Brook Troncoso on 02-27-2025 Clarity (U) Clear Clear [facility] Urine color determinationOrd ered By: Bennett Troncoso on 02-27-2025 Color (U) Straw Yellow [facility] Urine glucose detectionOrder ed By: Bennett Troncoso on 02-27-2025 Glucose Ql (U) Normal mg/dl Normal [facility] Urine leukocyte esterase det ection by dipstickOrdered By: Bennett Troncoso on 02-27-2025 Leukocyte esterase Test strip Ql (U) Negative Negative [facility] Urine pHOrdered By: Bennett rosado on 02-27-2025 pH (U) 6.0 [pH] 5.0 - 8.0 [facility] Urine sediment bacteria coun t by microscopy (number/high power field)Ordered By: Bennett Troncoso on 02-27-2025 Bacteria LM.HPF (Urine sed) [#/Area] 0 /[HPF] None Seen [facility] Urine specific gravity measu rementOrdered By: Bennett Troncoso on 02-27-2025 Specific gravity (U) [Rel density] 1.010 1.002-1.03 0 [facility] Urine urobilinogen measureme ntOrdered By: Bennett Troncoso on 02-27-2025 Urobilinogen Ql (U) Normal mg/dl Normal [facility] White blood cell (WBC) count Ordered By: Bennett Troncoso on 02-27-2025 WBC (Bld) [#/Vol] 12.7 10*3/uL High 4.4-11.0 [facility] White blood cell countOrdere d By: Bennett Troncoso on 02-27-2025 White blood cell count 0 SEEN /hpf 0-5 [facility] Anion gap in Serum or Plasma Ordered By: Walter Becker on 02-26-2025 Anion gap [Moles/Vol] 11 mmol/L 5-15 [facility] BUN/creatinine ratioOrdered By: Walter Becker on 02-26-2025 Urea nitrogen/Creatinine [Mass ratio] 31.6 mg/mg High 10-20 [facility] Basic Metabolic Profile (BMP )on 02-26-2025 BUN/CRE 31.6 RATIO High - [facility] Comment on above: Order Comment: 215-2 Performed By: #### L 500.2500 ####[facility] [address] [place], [address] Calcium [Mass/Vol] 9.8 mg/dL Normal 7.6-11.0 [facility] Comment on above: Order Comment: 215-2 Performed By: #### L 500.2500 ####[facility] [address] [place], [address] Chloride [Moles/Vol] 101 mmol/L Normal 98-108 [facility] Comment on above: Order Comment: 215-2 Performed By: #### L 500.2500 ####[facility] [address] [place], [address] CO2 [Moles/Vol] 27.9 mmol/L Normal 21.0-32.0 [facility] Comment on above: Order Comment: 215-2 Performed By: #### L 500.2500 ####[facility] [address] [place], [address] Creatinine [Mass/Vol] 1.44 mg/dL High 0.70-1.20 [facility] Comment on above: Order Comment: 215-2 Performed By: #### L 500.2500 ####[facility] [address] [place], [address] GAP 11 Normal 5-15 [facility] Comment on above: Order Comment: 215-2 Performed By: #### L 500.2500 ####[facility] [address] [place], [address] GFR/1.73 sq M.predicted among non-blacks MDRD (S/P/Bld) [Vol rate/Area] 50 mL/min/{1.73_m2} Low >60 [facility] Comment on above: Order Comment: 215-2 Result Comment: mL/m in/1.73m2 CKD-EPI Creatinine Equation (2020) Performed By: #### L 500.2500 ####[facility] [address] [place], [address] Glucose [Mass/Vol] 141 mg/dL High 70-99 [facility] Comment on above: Order Comment: 215-2 Performed By: #### L 500.2500 ####[facility] [address] [place], [address] Potassium [Moles/Vol] 3.7 mmol/L Normal 3.3-5.1 [facility] Comment on above: Order Comment: 215-2 Performed By: #### L 500.2500 ####[facility] [address] [place], [address] Sodium [Moles/Vol] 140 mmol/L Normal 133-145 [facility] Comment on above: Order Comment: 215-2 Performed By: #### L 500.2500 ####[facility] [address] [place], [place], [address] Urea nitrogen [Mass/Vol] 46 mg/dL High 4-19 [facility] Comment on above: Order Comment: 215-2 Performed By: #### L 500.2500 ####[facility] [address] [place], [address] Carbon dioxide, total [Moles /volume] in Central venous bloodOrdered By: Walter Becker on 02-26-2025 CO2 [Moles/Vol] 27.9 mmol/L 21.0-32.0 [facility] Chloride assayOrdered By: Horner on 02-26-2025 Chloride [Moles/Vol] 101 mmol/L 98-108 [facility] Glomerular filtration rate ( GFR) estimation/1.73 sq m using serum, plasma, or whole bOrdered By: Walter Becker on 02-26-2025 GFR/1.73 sq M.predicted among non-blacks MDRD (S/P/Bld) [Vol rate/Area] 50 mL/min/{1.73_m2} Low >60 [facility] Potassium measurement (mass/ volume)Ordered By: Walter Becker on 02-26-2025 Potassium (Unsp spec) [Mass/Vol] 3.7 mmol/L 3.3-5.1 [facility] Serum creatinine measurement (mass/volume)Ordered By: Walter Becker on 02-26-2025 Creatinine [Mass/Vol] 1.44 mg/dL High 0.70-1.20 [facility] Serum glucose measurement (m ass/volume)Ordered By: Walter Becker on 02-26-2025 Glucose [Mass/Vol] 141 mg/dL High 70-99 [facility] Serum or plasma calcium antoine urement (mass/volume)Ordered By: Walter Becker on 02-26-2025 Calcium [Mass/Vol] 9.8 mg/dL 7.6-11.0 [facility] Serum or plasma urea nitroge n measurement (mass/volume)Ordered By: Walter Becker on 02-26-2025 Urea nitrogen [Mass/Vol] 46 mg/dL High 4-19 [facility] Sodium levelOrdered By: Walter Becker on 02-26-2025 Sodium [Moles/Vol] 140 mmol/L 133-145 [facility] Anion gap in Serum or Plasma Ordered By: Walter Becker on 02-25-2025 Anion gap [Moles/Vol] 12 mmol/L - [facility] BUN/creatinine ratioOrdered By: Walter Becker on 02-25-2025 Urea nitrogen/Creatinine [Mass ratio] 30.8 mg/mg High 05-03 [facility] Basic Metabolic Profile (BMP )on 02-25-2025 BUN/CRE 30.8 RATIO High 05-03 [facility] Comment on above: Order Comment: 215.2 Performed By: #### L 500.2500 ####[facility] [address] [place], [address] Calcium [Mass/Vol] 10.0 mg/dL Normal 7.6-11.0 [facility] Comment on above: Order Comment: 215.2 Performed By: #### L 500.2500 ####[facility] [address] [place], [address] Chloride [Moles/Vol] 100 mmol/L Normal 98-108 [facility] Comment on above: Order Comment: 215.2 Performed By: #### L 500.2500 ####[facility] [address] [place], [address] CO2 [Moles/Vol] 27.9 mmol/L Normal 21.0-32.0 [facility] Comment on above: Order Comment: 215.2 Performed By: #### L 500.2500 ####[facility] [address] [place], [address] Creatinine [Mass/Vol] 1.31 mg/dL High 0.70-1.20 [facility] Comment on above: Order Comment: 215.2 Performed By: #### L 500.2500 ####[facility] [address] [place], [address] GAP 12 Normal 5-15 [facility] Comment on above: Order Comment: 215.2 Performed By: #### L 500.2500 ####[facility] [address] [place], [address] GFR/1.73 sq M.predicted among non-blacks MDRD (S/P/Bld) [Vol rate/Area] 56 mL/min/{1.73_m2} Low >60 [facility] Comment on above: Order Comment: 215.2 Result Comment: mL/m in/1.73m2 CKD-EPI Creatinine Equation (2020) Performed By: #### L 500.2500 ####[facility] [address] [place], [address] Glucose [Mass/Vol] 158 mg/dL High 70-99 [facility] Comment on above: Order Comment: 215.2 Performed By: #### L 500.2500 ####[facility] [address] [place], [address] Potassium [Moles/Vol] 3.8 mmol/L Normal 3.3-5.1 [facility] Comment on above: Order Comment: 215.2 Performed By: #### L 500.2500 ####[facility] [address] [place], [address] Sodium [Moles/Vol] 140 mmol/L Normal 133-145 [facility] Comment on above: Order Comment: 215.2 Performed By: #### L 500.2500 ####[facility] [address] [place], [address] Urea nitrogen [Mass/Vol] 40 mg/dL High 4-19 [facility] Comment on above: Order Comment: 215.2 Performed By: #### L 500.2500 ####[facility] [address] [place], [address] Carbon dioxide, total [Moles /volume] in Central venous bloodOrdered By: Walter Becker on 02-25-2025 CO2 [Moles/Vol] 27.9 mmol/L 21.0-32.0 [facility] Chloride assayOrdered By: Horner on 02-25-2025 Chloride [Moles/Vol] 100 mmol/L 98-108 [facility] Glomerular filtration rate ( GFR) estimation/1.73 sq m using serum, plasma, or whole bOrdered By: Walter Becker on 02-25-2025 GFR/1.73 sq M.predicted among non-blacks MDRD (S/P/Bld) [Vol rate/Area] 56 mL/min/{1.73_m2} Low >60 [facility] Potassium measurement (mass/ volume)Ordered By: Walter Becker on 02-25-2025 Potassium (Unsp spec) [Mass/Vol] 3.8 mmol/L 3.3-5.1 [facility] Serum creatinine measurement (mass/volume)Ordered By: Walter Becker on 02-25-2025 Creatinine [Mass/Vol] 1.31 mg/dL High 0.70-1.20 [facility] Serum glucose measurement (m ass/volume)Ordered By: Walter Becker on 02-25-2025 Glucose [Mass/Vol] 158 mg/dL High 70-99 [facility] Serum or plasma calcium antoine urement (mass/volume)Ordered By: Walter Becker on 02-25-2025 Calcium [Mass/Vol] 10.0 mg/dL 7.6-11.0 [facility] Serum or plasma urea nitroge n measurement (mass/volume)Ordered By: Walter Becker on 02-25-2025 Urea nitrogen [Mass/Vol] 40 mg/dL High 4-19 [facility] Sodium levelOrdered By: Walter Becker on 02-25-2025 Sodium [Moles/Vol] 140 mmol/L 133-145 [facility] Anion gap in Serum or Plasma Ordered By: Walter Becker on 08-11-2025 Anion gap [Moles/Vol] 13 mmol/L 5- [facility] BUN/creatinine ratioOrdered By: Walter Becker on 02-22-2025 Urea nitrogen/Creatinine [Mass ratio] 28.7 mg/mg High - [facility] Basic Metabolic Profile (BMP )on 02-22-2025 BUN/CRE 28.7 RATIO High - [facility] Comment on above: Order Comment: 215.2 Performed By: #### L 500.2500 ####[facility] [address] [place], [address] Calcium [Mass/Vol] 9.7 mg/dL Normal 7.6-11.0 [facility] Comment on above: Order Comment: 215.2 Performed By: #### L 500.2500 ####[facility] [address] [place], [address] Chloride [Moles/Vol] 100 mmol/L Normal 98-108 [facility] Comment on above: Order Comment: 215.2 Performed By: #### L 500.2500 ####[facility] [address] [place], [address] CO2 [Moles/Vol] 27.5 mmol/L Normal 21.0-32.0 [facility] Comment on above: Order Comment: 215.2 Performed By: #### L 500.2500 ####[facility] [address] [place], [address] Creatinine [Mass/Vol] 1.45 mg/dL High 0.70-1.20 [facility] Comment on above: Order Comment: 215.2 Performed By: #### L 500.2500 ####[facility] [address] [place], [address] GAP 13 Normal - [facility] Comment on above: Order Comment: 215.2 Performed By: #### L 500.2500 ####[facility] [address] [place], [address] GFR/1.73 sq M.predicted among non-blacks MDRD (S/P/Bld) [Vol rate/Area] 50 mL/min/{1.73_m2} Low >60 [facility] Comment on above: Order Comment: 215.2 Result Comment: mL/m in/1.73m2 CKD-EPI Creatinine Equation (2020) Performed By: #### L 500.2500 ####[facility] [address] [place], [address] Glucose [Mass/Vol] 152 mg/dL High 70-99 [facility] Comment on above: Order Comment: 215.2 Performed By: #### L 500.2500 ####[facility] [address] [place], [address] Potassium [Moles/Vol] 3.5 mmol/L Normal 3.3-5.1 [facility] Comment on above: Order Comment: 215.2 Performed By: #### L 500.2500 ####[facility] [address] [place], [address] Sodium [Moles/Vol] 140 mmol/L Normal 133-145 [facility] Comment on above: Order Comment: 215.2 Performed By: #### L 500.2500 ####[facility] [address] [place], [address] Urea nitrogen [Mass/Vol] 42 mg/dL High 4-19 [facility] Comment on above: Order Comment: 215.2 Performed By: #### L 500.2500 ####[facility] [address] [place], [address] Carbon dioxide, total [Moles /volume] in Central venous bloodOrdered By: Walter Becker on 02-22-2025 CO2 [Moles/Vol] 27.5 mmol/L 21.0-32.0 [facility] Chloride assayOrdered By: Horner on 02-22-2025 Chloride [Moles/Vol] 100 mmol/L 98-108 [facility] Glomerular filtration rate ( GFR) estimation/1.73 sq m using serum, plasma, or whole bOrdered By: Walter Becker on 02-22-2025 GFR/1.73 sq M.predicted among non-blacks MDRD (S/P/Bld) [Vol rate/Area] 50 mL/min/{1.73_m2} Low >60 [facility] Potassium measurement (mass/ volume)Ordered By: Walter Becker on 02-22-2025 Potassium (Unsp spec) [Mass/Vol] 3.5 mmol/L 3.3-5.1 [facility] Serum creatinine measurement (mass/volume)Ordered By: Walter Becker on 02-22-2025 Creatinine [Mass/Vol] 1.45 mg/dL High 0.70-1.20 [facility] Serum glucose measurement (m ass/volume)Ordered By: Walter Becker on 02-22-2025 Glucose [Mass/Vol] 152 mg/dL High 70-99 [facility] Serum or plasma calcium antoine urement (mass/volume)Ordered By: Walter Becker on 02-22-2025 Calcium [Mass/Vol] 9.7 mg/dL 7.6-11.0 [facility] Serum or plasma urea nitroge n measurement (mass/volume)Ordered By: Walter Becker on 02-22-2025 Urea nitrogen [Mass/Vol] 42 mg/dL High 4-19 [facility] Sodium levelOrdered By: Walter Becker on 02-22-2025 Sodium [Moles/Vol] 140 mmol/L 133-145 [facility] Anion gap in Serum or Plasma Ordered By: Walter Becker on 02-18-2025 Anion gap [Moles/Vol] 10 mmol/L 5-15 [facility] BUN/creatinine ratioOrdered By: Walter Becker on 02-18-2025 Urea nitrogen/Creatinine [Mass ratio] 29.0 mg/mg High 10-20 [facility] Basic Metabolic Profile (BMP )on 02-18-2025 BUN/CRE 29.0 RATIO High 10- [facility] Comment on above: Order Comment: 215-2 Performed By: #### L 500.2500, L100.0500 ####[facility] [address] [place], [address] Calcium [Mass/Vol] 9.0 mg/dL Normal 7.6-11.0 [facility] Comment on above: Order Comment: 215-2 Performed By: #### L 500.2500, L100.0500 ####[facility] [address] [place], [address] Chloride [Moles/Vol] 105 mmol/L Normal 98-108 [facility] Comment on above: Order Comment: 215-2 Performed By: #### L 500.2500, L100.0500 ####[facility] [address] [place], [address] CO2 [Moles/Vol] 27.8 mmol/L Normal 21.0-32.0 [facility] Comment on above: Order Comment: 215-2 Performed By: #### L 500.2500, L100.0500 ####[facility] [address] [place], [address] Creatinine [Mass/Vol] 1.42 mg/dL High 0.70-1.20 [facility] Comment on above: Order Comment: 215-2 Performed By: #### L 500.2500, L100.0500 ####[facility] [address] [place], [address] GAP 10 Normal 5-15 [facility] Comment on above: Order Comment: 215-2 Performed By: #### L 500.2500, L100.0500 ####[facility] [address] [place], [address] GFR/1.73 sq M.predicted among non-blacks MDRD (S/P/Bld) [Vol rate/Area] 51 mL/min/{1.73_m2} Low >60 [facility] Comment on above: Order Comment: 215-2 Result Comment: mL/m in/1.73m2 CKD-EPI Creatinine Equation (2020) Performed By: #### L 500.2500, L100.0500 ####[facility] [address] [place], [address] Glucose [Mass/Vol] 140 mg/dL High 70-99 [facility] Comment on above: Order Comment: 215-2 Performed By: #### L 500.2500, L100.0500 ####[facility] [address] [place], [address] Potassium [Moles/Vol] 4.0 mmol/L Normal 3.3-5.1 [facility] Comment on above: Order Comment: 215-2 Performed By: #### L 500.2500, L100.0500 ####[facility] [address] [place], [address] Sodium [Moles/Vol] 143 mmol/L Normal 133-145 [facility] Comment on above: Order Comment: 215-2 Performed By: #### L 500.2500, L100.0500 ####[facility] [address] [place], [address] Urea nitrogen [Mass/Vol] 41 mg/dL High 4-19 [facility] Comment on above: Order Comment: 215-2 Performed By: #### L 500.2500, L100.0500 ####[facility] [address] [place], [address] CBC-Complete Blood Cnt No Di ffon 02-18-2025 Erythrocyte distribution width (RBC) [Ratio] 13.8 % Normal 11.6-14.6 [facility] Comment on above: Order Comment: 215-2 Performed By: #### L 500.2500, L100.0500 ####[facility] [address] [place], [address] Hematocrit (Bld) [Volume fraction] 30.2 % Low 40-54 [facility] Comment on above: Order Comment: 215-2 Performed By: #### L 500.2500, L100.0500 ####[facility] [address] [place], [address] Hemoglobin (Bld) [Mass/Vol] 9.4 g/dL Low 13.0-16. 5 [facility] Comment on above: Order Comment: 215-2 Performed By: #### L 500.2500, L100.0500 ####[facility] [address] [place], [address] MCH (RBC) [Entitic mass] 27.2 pg Normal 27.0-32.0 [facility] Comment on above: Order Comment: 215-2 Performed By: #### L 500.2500, L100.0500 ####[facility] [address] [place], [address] MCHC (RBC) [Mass/Vol] 31.1 g/dL Low 32-36 [facility] Comment on above: Order Comment: 215-2 Performed By: #### L 500.2500, L100.0500 ####[facility] [address] [place], [address] MCV (RBC) [Entitic vol] 87.3 fL Normal 80-94 [facility] Comment on above: Order Comment: 215-2 Performed By: #### L 500.2500, L100.0500 ####[facility] [address] [place], [address] Platelet mean volume (Bld) [Entitic vol] 9.4 fL Normal 6.2-12.0 [facility] Comment on above: Order Comment: 215-2 Performed By: #### L 500.2500, L100.0500 ####[facility] [address] [place], [address] Platelets (Bld) [#/Vol] 368 10*3/uL Normal 150-450 [facility] Comment on above: Order Comment: 215-2 Performed By: #### L 500.2500, L100.0500 ####[facility] [address] [place], [address] RBC (Bld) [#/Vol] 3.46 10*6/uL Low 4.6-6.2 [facility] Comment on above: Order Comment: 215-2 Performed By: #### L 500.2500, L100.0500 ####[facility] [address] [place], [address] RDW SD 43.8 fl Normal 35.1-43.9 [facility] Comment on above: Order Comment: 215-2 Performed By: #### L 500.2500, L100.0500 ####[facility] [address] [place], [address] WBC (Bld) [#/Vol] 10.0 10*3/uL Normal 4.4-11.0 [facility] Comment on above: Order Comment: 215-2 Performed By: #### L 500.2500, L100.0500 ####[facility] [address] [place], [address] Carbon dioxide, total [Moles /volume] in Central venous bloodOrdered By: Walter Becker on 02-18-2025 CO2 [Moles/Vol] 27.8 mmol/L 21.0-32.0 [facility] Chloride assayOrdered By: Horner on 02-18-2025 Chloride [Moles/Vol] 105 mmol/L 98-108 [facility] Erythrocyte distribution wid th ratioOrdered By: Walter Becker on 02-18-2025 Erythrocyte distribution width (RBC) [Ratio] 13.8 % 11.6-14.6 [facility] Erythrocyte distribution wid th standard deviationOrdered By: Waltre Becker on 02-18-2025 Erythrocyte distribution width (RBC) [Ratio] 43.8 fl 35.1-43.9 [facility] Glomerular filtration rate ( GFR) estimation/1.73 sq m using serum, plasma, or whole bOrdered By: Walter Becker on 02-18-2025 GFR/1.73 sq M.predicted among non-blacks MDRD (S/P/Bld) [Vol rate/Area] 51 mL/min/{1.73_m2} Low >60 [facility] Hematocrit Auto (Bld) [Volum e fraction]Ordered By: Walter Becker on 02-18-2025 Hematocrit (Bld) [Volume fraction] 30.2 % Low 40-54 [facility] Hemoglobin measurementOrdere d By: Walter Becker on 02-18-2025 Hemoglobin (Bld) [Mass/Vol] 9.4 g/dL Low 13.0-16. 5 [facility] MCV (mean corpuscular volume ) determinationOrdered By: Walter Becker on 02-18-2025 MCV (RBC) [Entitic vol] 87.3 fL 80-94 [facility] Mean corpuscular hemoglobin (MCH) determinationOrdered By: Walter Becker on 02-18-2025 MCH (RBC) [Entitic mass] 27.2 pg 27.0-32.0 [facility] Platelet countOrdered By: Horner on 02-18-2025 Platelets (Bld) [#/Vol] 368 10*3/uL 150-450 [facility] Potassium measurement (mass/ volume)Ordered By: Walter Becker on 02-18-2025 Potassium (Unsp spec) [Mass/Vol] 4.0 mmol/L 3.3-5.1 [facility] RBC Auto (Bld) [#/Vol]Ordere d By: Walter Becker on 02-18-2025 RBC (Bld) [#/Vol] 3.46 10*6/uL Low 4.6-6.2 [facility] Serum creatinine measurement (mass/volume)Ordered By: Walter Becker on 02-18-2025 Creatinine [Mass/Vol] 1.42 mg/dL High 0.70-1.20 [facility] Serum glucose measurement (m ass/volume)Ordered By: Walter Becker on 02-18-2025 Glucose [Mass/Vol] 140 mg/dL High 70-99 [facility] Serum or plasma calcium antoine urement (mass/volume)Ordered By: Walter Becker on 02-18-2025 Calcium [Mass/Vol] 9.0 mg/dL 7.6-11.0 [facility] Serum or plasma urea nitroge n measurement (mass/volume)Ordered By: Walter Becker on 02-18-2025 Urea nitrogen [Mass/Vol] 41 mg/dL High 4-19 [facility] Sodium levelOrdered By: Walter Becker on 02-18-2025 Sodium [Moles/Vol] 143 mmol/L 133-145 [facility] White blood cell (WBC) count Ordered By: Walter Becker on 02-18-2025 WBC (Bld) [#/Vol] 10.0 10*3/uL 4.4-11.0 [facility] Anion gap in Serum or Plasma Ordered By: Walter Becker on 02-17-2025 Anion gap [Moles/Vol] 12 mmol/L 5-15 [facility] BUN/creatinine ratioOrdered By: Walter Becker on 02-17-2025 Urea nitrogen/Creatinine [Mass ratio] 26.5 mg/mg High 10- [facility] Basic Metabolic Profile (BMP )on 02-17-2025 BUN/CRE 26.5 RATIO High 10-20 [facility] Comment on above: Order Comment: 215-2 Performed By: #### L 500.2500, L100.0500 ####[facility] [address] [place], [address] Calcium [Mass/Vol] 9.1 mg/dL Normal 7.6-11.0 [facility] Comment on above: Order Comment: 215-2 Performed By: #### L 500.2500, L100.0500 ####[facility] [address] [place], [address] Chloride [Moles/Vol] 105 mmol/L Normal 98-108 [facility] Comment on above: Order Comment: 215-2 Performed By: #### L 500.2500, L100.0500 ####[facility] [address] [place], [address] CO2 [Moles/Vol] 26.3 mmol/L Normal 21.0-32.0 [facility] Comment on above: Order Comment: 215-2 Performed By: #### L 500.2500, L100.0500 ####[facility] [address] [place], [address] Creatinine [Mass/Vol] 1.48 mg/dL High 0.70-1.20 [facility] Comment on above: Order Comment: 215-2 Performed By: #### L 500.2500, L100.0500 ####[facility] [address] [place], [address] GAP 12 Normal 5-15 [facility] Comment on above: Order Comment: 215-2 Performed By: #### L 500.2500, L100.0500 ####[facility] [address] [place], [address] GFR/1.73 sq M.predicted among non-blacks MDRD (S/P/Bld) [Vol rate/Area] 48 mL/min/{1.73_m2} Low >60 [facility] Comment on above: Order Comment: 215-2 Result Comment: mL/m in/1.73m2 CKD-EPI Creatinine Equation (2020) Performed By: #### L 500.2500, L100.0500 ####[facility] [address] [place], [address] Glucose [Mass/Vol] 132 mg/dL High 70-99 [facility] Comment on above: Order Comment: 215-2 Performed By: #### L 500.2500, L100.0500 ####[facility] [address] [place], [address] Potassium [Moles/Vol] 3.7 mmol/L Normal 3.3-5.1 [facility] Comment on above: Order Comment: 215-2 Performed By: #### L 500.2500, L100.0500 ####[facility] [address] [place], [address] Sodium [Moles/Vol] 143 mmol/L Normal 133-145 [facility] Comment on above: Order Comment: 215-2 Performed By: #### L 500.2500, L100.0500 ####[facility] [address] [place], [address] Urea nitrogen [Mass/Vol] 39 mg/dL High 4-19 [facility] Comment on above: Order Comment: 215-2 Performed By: #### L 500.2500, L100.0500 ####[facility] [address] [place], [address] CBC-Complete Blood Cnt No Di ffon 02-17-2025 Erythrocyte distribution width (RBC) [Ratio] 13.8 % Normal 11.6-14.6 [facility] Comment on above: Order Comment: 215-2 Performed By: #### L 500.2500, L100.0500 ####[facility] [address] [place], [address] Hematocrit (Bld) [Volume fraction] 30.1 % Low 40-54 [facility] Comment on above: Order Comment: 215-2 Performed By: #### L 500.2500, L100.0500 ####[facility] [address] [place], [address] Hemoglobin (Bld) [Mass/Vol] 9.4 g/dL Low 13.0-16. 5 [facility] Comment on above: Order Comment: 215-2 Performed By: #### L 500.2500, L100.0500 ####[facility] [address] [place], [address] MCH (RBC) [Entitic mass] 27.4 pg Normal 27.0-32.0 [facility] Comment on above: Order Comment: 215-2 Performed By: #### L 500.2500, L100.0500 ####[facility] [address] [place], [address] MCHC (RBC) [Mass/Vol] 31.2 g/dL Low 32-36 [facility] Comment on above: Order Comment: 215-2 Performed By: #### L 500.2500, L100.0500 ####[facility] [address] [place], [address] MCV (RBC) [Entitic vol] 87.8 fL Normal 80-94 [facility] Comment on above: Order Comment: 215-2 Performed By: #### L 500.2500, L100.0500 ####[facility] [address] [place], [address] Platelet mean volume (Bld) [Entitic vol] 9.7 fL Normal 6.2-12.0 [facility] Comment on above: Order Comment: 215-2 Performed By: #### L 500.2500, L100.0500 ####[facility] [address] [place], [address] Platelets (Bld) [#/Vol] 385 10*3/uL Normal 150-450 [facility] Comment on above: Order Comment: 215-2 Performed By: #### L 500.2500, L100.0500 ####[facility] [address] [place], [address] RBC (Bld) [#/Vol] 3.43 10*6/uL Low 4.6-6.2 [facility] Comment on above: Order Comment: 215-2 Performed By: #### L 500.2500, L100.0500 ####[facility] [address] [place], [address] RDW SD 44.2 fl High 35.1-43.9 [facility] Comment on above: Order Comment: 215-2 Performed By: #### L 500.2500, L100.0500 ####[facility] [address] [place], [address] WBC (Bld) [#/Vol] 11.3 10*3/uL High 4.4-11.0 [facility] Comment on above: Order Comment: 215-2 Performed By: #### L 500.2500, L100.0500 ####[facility] [address] [place], [address] Carbon dioxide, total [Moles /volume] in Central venous bloodOrdered By: Walter Becker on 02-17-2025 CO2 [Moles/Vol] 26.3 mmol/L 21.0-32.0 [facility] Chloride assayOrdered By: Horner on 02-17-2025 Chloride [Moles/Vol] 105 mmol/L 98-108 [facility] Erythrocyte distribution wid th ratioOrdered By: Walter Becker on 02-17-2025 Erythrocyte distribution width (RBC) [Ratio] 13.8 % 11.6-14.6 [facility] Erythrocyte distribution wid th standard deviationOrdered By: Walter Becker on 02-17-2025 Erythrocyte distribution width (RBC) [Ratio] 44.2 fl High 35.1-43.9 [facility] Glomerular filtration rate ( GFR) estimation/1.73 sq m using serum, plasma, or whole bOrdered By: Walter Becker on 02-17-2025 GFR/1.73 sq M.predicted among non-blacks MDRD (S/P/Bld) [Vol rate/Area] 48 mL/min/{1.73_m2} Low >60 [facility] Hematocrit Auto (Bld) [Volum e fraction]Ordered By: Walter Becker on 02-17-2025 Hematocrit (Bld) [Volume fraction] 30.1 % Low 40-54 [facility] Hemoglobin measurementOrdere d By: Walter Becker on 02-17-2025 Hemoglobin (Bld) [Mass/Vol] 9.4 g/dL Low 13.0-16. 5 [facility] MCV (mean corpuscular volume ) determinationOrdered By: Walter Becker on 02-17-2025 MCV (RBC) [Entitic vol] 87.8 fL 80-94 [facility] Mean corpuscular hemoglobin (MCH) determinationOrdered By: Walter Becker on 02-17-2025 MCH (RBC) [Entitic mass] 27.4 pg 27.0-32.0 [facility] Platelet countOrdered By: Horner on 02-17-2025 Platelets (Bld) [#/Vol] 385 10*3/uL 150-450 [facility] Potassium measurement (mass/ volume)Ordered By: Walter Becker on 02-17-2025 Potassium (Unsp spec) [Mass/Vol] 3.7 mmol/L 3.3-5.1 [facility] RBC Auto (Bld) [#/Vol]Ordere d By: Walter Becker on 02-17-2025 RBC (Bld) [#/Vol] 3.43 10*6/uL Low 4.6-6.2 [facility] Serum creatinine measurement (mass/volume)Ordered By: Walter Becker on 02-17-2025 Creatinine [Mass/Vol] 1.48 mg/dL High 0.70-1.20 [facility] Serum glucose measurement (m ass/volume)Ordered By: Walter Becker on 02-17-2025 Glucose [Mass/Vol] 132 mg/dL High 70-99 [facility] Serum or plasma calcium antoine urement (mass/volume)Ordered By: Walter Becker on 02-17-2025 Calcium [Mass/Vol] 9.1 mg/dL 7.6-11.0 [facility] Serum or plasma urea nitroge n measurement (mass/volume)Ordered By: Walter Becker on 02-17-2025 Urea nitrogen [Mass/Vol] 39 mg/dL High 4-19 [facility] Sodium levelOrdered By: Walter Becker on 02-17-2025 Sodium [Moles/Vol] 143 mmol/L 133-145 [facility] White blood cell (WBC) count Ordered By: Walter Becker on 02-17-2025 WBC (Bld) [#/Vol] 11.3 10*3/uL High 4.4-11.0 [facility] Anion gap in Serum or Plasma Ordered By: Walter Becker on 02-16-2025 Anion gap [Moles/Vol] 11 mmol/L - [facility] BUN/creatinine ratioOrdered By: Walter Becker on 02-16-2025 Urea nitrogen/Creatinine [Mass ratio] 25.8 mg/mg High 05-03 [facility] Basic Metabolic Profile (BMP )on 02-16-2025 BUN/CRE 25.8 RATIO High 05-03 [facility] Comment on above: Order Comment: 215.2 Performed By: #### L 500.2500, L100.0500 ####[facility] [address] [place], [address] Calcium [Mass/Vol] 9.0 mg/dL Normal 7.6-11.0 [facility] Comment on above: Order Comment: 215.2 Performed By: #### L 500.2500, L100.0500 ####[facility] [address] [place], [address] Chloride [Moles/Vol] 104 mmol/L Normal 98-108 [facility] Comment on above: Order Comment: 215.2 Performed By: #### L 500.2500, L100.0500 ####[facility] [address] [place], [address] CO2 [Moles/Vol] 26.2 mmol/L Normal 21.0-32.0 [facility] Comment on above: Order Comment: 215.2 Performed By: #### L 500.2500, L100.0500 ####[facility] [address] [place], [address] Creatinine [Mass/Vol] 1.46 mg/dL High 0.70-1.20 [facility] Comment on above: Order Comment: 215.2 Performed By: #### L 500.2500, L100.0500 ####[facility] [address] [place], [address] GAP 11 Normal 5-15 [facility] Comment on above: Order Comment: 215.2 Performed By: #### L 500.2500, L100.0500 ####[facility] [address] [place], [address] GFR/1.73 sq M.predicted among non-blacks MDRD (S/P/Bld) [Vol rate/Area] 49 mL/min/{1.73_m2} Low >60 [facility] Comment on above: Order Comment: 215.2 Result Comment: mL/m in/1.73m2 CKD-EPI Creatinine Equation (2020) Performed By: #### L 500.2500, L100.0500 ####[facility] [address] [place], [address] Glucose [Mass/Vol] 137 mg/dL High 70-99 [facility] Comment on above: Order Comment: 215.2 Performed By: #### L 500.2500, L100.0500 ####[facility] [address] [place], [address] Potassium [Moles/Vol] 3.8 mmol/L Normal 3.3-5.1 [facility] Comment on above: Order Comment: 215.2 Performed By: #### L 500.2500, L100.0500 ####[facility] [address] [place], [address] Sodium [Moles/Vol] 142 mmol/L Normal 133-145 [facility] Comment on above: Order Comment: 215.2 Performed By: #### L 500.2500, L100.0500 ####[facility] [address] [place], [address] Urea nitrogen [Mass/Vol] 38 mg/dL High 4-19 [facility] Comment on above: Order Comment: 215.2 Performed By: #### L 500.2500, L100.0500 ####[facility] [address] [place], [address] CBC-Complete Blood Cnt No Di ffon 02-16-2025 Erythrocyte distribution width (RBC) [Ratio] 13.6 % Normal 11.6-14.6 [facility] Comment on above: Order Comment: 215.2 Performed By: #### L 500.2500, L100.0500 ####[facility] [address] [place], [address] Hematocrit (Bld) [Volume fraction] 29.5 % Low 40-54 [facility] Comment on above: Order Comment: 215.2 Performed By: #### L 500.2500, L100.0500 ####[facility] [address] [place], [address] Hemoglobin (Bld) [Mass/Vol] 9.3 g/dL Low 13.0-16. 5 [facility] Comment on above: Order Comment: 215.2 Performed By: #### L 500.2500, L100.0500 ####[facility] [address] [place], [address] MCH (RBC) [Entitic mass] 27.1 pg Normal 27.0-32.0 [facility] Comment on above: Order Comment: 215.2 Performed By: #### L 500.2500, L100.0500 ####[facility] [address] [place], [address] MCHC (RBC) [Mass/Vol] 31.5 g/dL Low 32-36 [facility] Comment on above: Order Comment: 215.2 Performed By: #### L 500.2500, L100.0500 ####[facility] [address] [place], [address] MCV (RBC) [Entitic vol] 86.0 fL Normal 80-94 [facility] Comment on above: Order Comment: 215.2 Performed By: #### L 500.2500, L100.0500 ####[facility] [address] [place], [address] Platelet mean volume (Bld) [Entitic vol] 9.4 fL Normal 6.2-12.0 [facility] Comment on above: Order Comment: 215.2 Performed By: #### L 500.2500, L100.0500 ####[facility] [address] [place], [address] Platelets (Bld) [#/Vol] 360 10*3/uL Normal 150-450 [facility] Comment on above: Order Comment: 215.2 Performed By: #### L 500.2500, L100.0500 ####[facility] [address] [place], [address] RBC (Bld) [#/Vol] 3.43 10*6/uL Low 4.6-6.2 [facility] Comment on above: Order Comment: 215.2 Performed By: #### L 500.2500, L100.0500 ####[facility] [address] [place], [address] RDW SD 42.7 fl Normal 35.1-43.9 [facility] Comment on above: Order Comment: 215.2 Performed By: #### L 500.2500, L100.0500 ####[facility] [address] [place], [address] WBC (Bld) [#/Vol] 12.5 10*3/uL High 4.4-11.0 [facility] Comment on above: Order Comment: 215.2 Performed By: #### L 500.2500, L100.0500 ####[facility] [address] [place], [address] Carbon dioxide, total [Moles /volume] in Central venous bloodOrdered By: Walter Becker on 02-16-2025 CO2 [Moles/Vol] 26.2 mmol/L 21.0-32.0 [facility] Chloride assayOrdered By: Horner on 02-16-2025 Chloride [Moles/Vol] 104 mmol/L 98-108 [facility] Erythrocyte distribution wid th ratioOrdered By: Walter Becker on 02-16-2025 Erythrocyte distribution width (RBC) [Ratio] 13.6 % 11.6-14.6 [facility] Erythrocyte distribution wid th standard deviationOrdered By: Walter Becker on 02-16-2025 Erythrocyte distribution width (RBC) [Ratio] 42.7 fl 35.1-43.9 [facility] Glomerular filtration rate ( GFR) estimation/1.73 sq m using serum, plasma, or whole bOrdered By: Walter Becker on 02-16-2025 GFR/1.73 sq M.predicted among non-blacks MDRD (S/P/Bld) [Vol rate/Area] 49 mL/min/{1.73_m2} Low >60 [facility] Hematocrit Auto (Bld) [Volum e fraction]Ordered By: Walter Becker on 02-16-2025 Hematocrit (Bld) [Volume fraction] 29.5 % Low 40-54 [facility] Hemoglobin measurementOrdere d By: Walter Becker on 02-16-2025 Hemoglobin (Bld) [Mass/Vol] 9.3 g/dL Low 13.0-16. 5 [facility] MCV (mean corpuscular volume ) determinationOrdered By: Walter Becker on 02-16-2025 MCV (RBC) [Entitic vol] 86.0 fL 80-94 [facility] Mean corpuscular hemoglobin (MCH) determinationOrdered By: Walter Becker on 02-16-2025 MCH (RBC) [Entitic mass] 27.1 pg 27.0-32.0 [facility] Platelet countOrdered By: Horner on 02-16-2025 Platelets (Bld) [#/Vol] 360 10*3/uL 150-450 [facility] Potassium measurement (mass/ volume)Ordered By: Walter Becker on 02-16-2025 Potassium (Unsp spec) [Mass/Vol] 3.8 mmol/L 3.3-5.1 [facility] RBC Auto (Bld) [#/Vol]Ordere d By: Walter Becker on 02-16-2025 RBC (Bld) [#/Vol] 3.43 10*6/uL Low 4.6-6.2 [facility] Serum creatinine measurement (mass/volume)Ordered By: Walter Becker on 02-16-2025 Creatinine [Mass/Vol] 1.46 mg/dL High 0.70-1.20 [facility] Serum glucose measurement (m ass/volume)Ordered By: Walter Becker on 02-16-2025 Glucose [Mass/Vol] 137 mg/dL High 70-99 [facility] Serum or plasma calcium antoine urement (mass/volume)Ordered By: Walter Becker on 02-16-2025 Calcium [Mass/Vol] 9.0 mg/dL 7.6-11.0 [facility] Serum or plasma urea nitroge n measurement (mass/volume)Ordered By: Waltre Becker on 02-16-2025 Urea nitrogen [Mass/Vol] 38 mg/dL High 4-19 [facility] Sodium levelOrdered By: Walter Becker on 02-16-2025 Sodium [Moles/Vol] 142 mmol/L 133-145 [facility] White blood cell (WBC) count Ordered By: Walter Becker on 02-16-2025 WBC (Bld) [#/Vol] 12.5 10*3/uL High 4.4-11.0 [facility] Anion gap in Serum or Plasma Ordered By: Walter Becker on 02-15-2025 Anion gap [Moles/Vol] 12 mmol/L 5-15 [facility] Automated blood erythrocyte countOrdered By: Walter Becker on 02-15-2025 RBC (Bld) [#/Vol] 3.38 10*6/uL Low 4.6-6.2 [facility] Comment on above: Order Comment: 215-2 Performed By: #### L 100.0500, L500.2500 ####[facility] [address] [place], [address] Automated blood hematocrit ( percentage)Ordered By: Walter Becker on 02-15-2025 Hematocrit (Bld) [Volume fraction] 29.3 % Low 40-54 [facility] Comment on above: Order Comment: 215-2 Performed By: #### L 100.0500, L500.2500 ####[facility] [address] [place], [address] BUN/creatinine ratioOrdered By: Walter Becker on 02-15-2025 Urea nitrogen/Creatinine [Mass ratio] 24.7 mg/mg High 10-20 [facility] Basic Metabolic Profile (BMP )on 02-15-2025 BUN/CRE 24.7 RATIO High 1020 [facility] Comment on above: Order Comment: 215-2 Performed By: #### L 100.0500, L500.2500 ####[facility] [address] [place], [address] Calcium [Mass/Vol] 9.0 mg/dL Normal 7.6-11.0 [facility] Comment on above: Order Comment: 215-2 Performed By: #### L 100.0500, L500.2500 ####[facility] [address] [place], [address] Chloride [Moles/Vol] 105 mmol/L Normal 98-108 [facility] Comment on above: Order Comment: 215-2 Performed By: #### L 100.0500, L500.2500 ####[facility] [address] [place], [address] CO2 [Moles/Vol] 24.2 mmol/L Normal 21.0-32.0 [facility] Comment on above: Order Comment: 215-2 Performed By: #### L 100.0500, L500.2500 ####[facility] [address] [place], [address] Creatinine [Mass/Vol] 1.46 mg/dL High 0.70-1.20 [facility] Comment on above: Order Comment: 215-2 Performed By: #### L 100.0500, L500.2500 ####[facility] [address] [place], [address] GAP 12 Normal 5-15 [facility] Comment on above: Order Comment: 215-2 Performed By: #### L 100.0500, L500.2500 ####[facility] [address] [place], [address] GFR/1.73 sq M.predicted among non-blacks MDRD (S/P/Bld) [Vol rate/Area] 49 mL/min/{1.73_m2} Low >60 [facility] Comment on above: Order Comment: 215-2 Result Comment: mL/m in/1.73m2 CKD-EPI Creatinine Equation (2020) Performed By: #### L 100.0500, L500.2500 ####[facility] [address] [place], [address] Glucose [Mass/Vol] 116 mg/dL High 70-99 [facility] Comment on above: Order Comment: 215-2 Performed By: #### L 100.0500, L500.2500 ####[facility] [address] [place], [address] Potassium [Moles/Vol] 3.7 mmol/L Normal 3.3-5.1 [facility] Comment on above: Order Comment: 215-2 Performed By: #### L 100.0500, L500.2500 ####[facility] [address] [place], [address] Sodium [Moles/Vol] 141 mmol/L Normal 133-145 [facility] Comment on above: Order Comment: 215-2 Performed By: #### L 100.0500, L500.2500 ####[facility] [address] [place], [address] Urea nitrogen [Mass/Vol] 36 mg/dL High 4-19 [facility] Comment on above: Order Comment: 215-2 Performed By: #### L 100.0500, L500.2500 ####[facility] [address] [place], [address] CBC-Complete Blood Cnt No Di ffon 02-15-2025 MCHC (RBC) [Mass/Vol] 31.7 g/dL Low 32-36 [facility] Comment on above: Order Comment: 215-2 Performed By: #### L 100.0500, L500.2500 ####[facility] [address] [place], [address] Platelet mean volume (Bld) [Entitic vol] 9.6 fL Normal 6.2-12.0 [facility] Comment on above: Order Comment: 215-2 Performed By: #### L 100.0500, L500.2500 ####[facility] [address] [place], [address] RDW SD 42.6 fl Normal 35.1-43.9 [facility] Comment on above: Order Comment: 215-2 Performed By: #### L 100.0500, L500.2500 ####[facility] [address] [place], [address] Carbon dioxide, total [Moles /volume] in Central venous bloodOrdered By: Walter Becker on 02-15-2025 CO2 [Moles/Vol] 24.2 mmol/L 21.0-32.0 [facility] Chloride assayOrdered By: Horner on 02-15-2025 Chloride [Moles/Vol] 105 mmol/L 98-108 [facility] Erythrocyte distribution wid th ratioOrdered By: Walter Becker on 02-15-2025 Erythrocyte distribution width (RBC) [Ratio] 13.4 % Normal 11.6-14.6 [facility] Comment on above: Order Comment: 215-2 Performed By: #### L 100.0500, L500.2500 ####[facility] [address] [place], [address] Erythrocyte distribution wid th standard deviationOrdered By: Walter Becker on 02-15-2025 Erythrocyte distribution width (RBC) [Ratio] 42.6 fl 35.1-43.9 [facility] Glomerular filtration rate ( GFR) estimation/1.73 sq m using serum, plasma, or whole bOrdered By: Walter Becker on 02-15-2025 GFR/1.73 sq M.predicted among non-blacks MDRD (S/P/Bld) [Vol rate/Area] 49 mL/min/{1.73_m2} Low >60 [facility] Hemoglobin measurementOrdere d By: Walter Becker on 02-15-2025 Hemoglobin (Bld) [Mass/Vol] 9.3 g/dL Low 13.0-16. 5 [facility] Comment on above: Order Comment: 215-2 Performed By: #### L 100.0500, L500.2500 ####[facility] [address] [place], [address] MCV (mean corpuscular volume ) determinationOrdered By: Walter Becker on 02-15-2025 MCV (RBC) [Entitic vol] 86.7 fL Normal 80-94 [facility] Comment on above: Order Comment: 215-2 Performed By: #### L 100.0500, L500.2500 ####[facility] [address] [place], [address] Mean corpuscular hemoglobin (MCH) determinationOrdered By: Walter Becker on 02-15-2025 MCH (RBC) [Entitic mass] 27.5 pg Normal 27.0-32.0 [facility] Comment on above: Order Comment: 215-2 Performed By: #### L 100.0500, L500.2500 ####[facility] [address] [place], [address] Platelet countOrdered By: Horner on 02-15-2025 Platelets (Bld) [#/Vol] 361 10*3/uL Normal 150-450 [facility] Comment on above: Order Comment: 215-2 Performed By: #### L 100.0500, L500.2500 ####[facility] [address] [place], [address] Potassium measurement (mass/ volume)Ordered By: Walter Becker on 02-15-2025 Potassium (Unsp spec) [Mass/Vol] 3.7 mmol/L 3.3-5.1 [facility] Serum creatinine measurement (mass/volume)Ordered By: Walter Becker on 02-15-2025 Creatinine [Mass/Vol] 1.46 mg/dL High 0.70-1.20 [facility] Serum glucose measurement (m ass/volume)Ordered By: Walter Becker on 02-15-2025 Glucose [Mass/Vol] 116 mg/dL High 70-99 [facility] Serum or plasma calcium antoine urement (mass/volume)Ordered By: Walter Becker on 02-15-2025 Calcium [Mass/Vol] 9.0 mg/dL 7.6-11.0 [facility] Serum or plasma urea nitroge n measurement (mass/volume)Ordered By: Walter Becker on 02-15-2025 Urea nitrogen [Mass/Vol] 36 mg/dL High 4-19 [facility] Sodium levelOrdered By: Walter Becker on 02-15-2025 Sodium [Moles/Vol] 141 mmol/L 133-145 [facility] White blood cell (WBC) count Ordered By: Walter Becker on 02-15-2025 WBC (Bld) [#/Vol] 11.7 10*3/uL High 4.4-11.0 [facility] Comment on above: Order Comment: 215-2 Performed By: #### L 100.0500, L500.2500 ####[facility] [address] [facility] [address] [place], [place], [id number] Absolute lymphocyte countOrd ered By: Hugo Cervantes on 02-11-2025 Lymphocytes Auto (Unsp spec) [#/Vol] 1.12 10*3/uL 0.83-4.51 [facility] Anion gap in Serum or Plasma Ordered By: Hugo Cervantes on 02-11-2025 Anion gap [Moles/Vol] 14 mmol/L 11-26 [facility] Automated lymphocyte count a s percentage of total leukocytesOrdered By: Hugo Cervantes on 02-11-2025 Lymphocytes/100 WBC Auto (Unsp spec) 9.9 % Low - [facility] BUN/creatinine ratioOrdered By: Hugo Cervantes on 02-11-2025 Urea nitrogen/Creatinine [Mass ratio] 15.3 mg/mg - [facility] Basic Metabolic Profile (BMP )on 02-11-2025 BUN/CRE 15.3 RATIO Normal 05-03 [facility] Comment on above: Result Comment: NICOL AKHTAR, SPOKE WITH KT Performed By: #### L 100.0100, L500.2500 ####[facility] [address] [place], [address] Calcium [Mass/Vol] 9.0 mg/dL Normal 7.6-11.0 [facility] Comment on above: Result Comment: NICOL AKHTAR, SPOKE WITH KT Performed By: #### L 100.0100, L500.2500 ####[facility] [address] [place], [address] Chloride [Moles/Vol] 109 mmol/L High 98-108 [facility] Comment on above: Result Comment: NICOL AKHTAR, SPOKE WITH KT Performed By: #### L 100.0100, L500.2500 ####[facility] [address] [place], [address] CO2 [Moles/Vol] 22.1 mmol/L Normal 21.0-32.0 [facility] Comment on above: Result Comment: NICOL AKHTAR, SPOKE WITH KT Performed By: #### L 100.0100, L500.2500 ####[facility] [address] [place], [address] Creatinine [Mass/Vol] 1.55 mg/dL High 0.70-1.20 [facility] Comment on above: Result Comment: NICOL AKHTAR, SPOKE WITH KT Performed By: #### L 100.0100, L500.2500 ####[facility] [address] [place], [address] ECRCL 52.57 ml/min Normal 50-250 [facility] Comment on above: Performed By: #### L 100.0100, L500.2500 ####[facility] [address] [place], [address] GAP 14 Normal 5-15 [facility] Comment on above: Result Comment: NICOL AKHTAR, SPOKE WITH KT Performed By: #### L 100.0100, L500.2500 ####[facility] [address] [place], [address] GFR/1.73 sq M.predicted among non-blacks MDRD (S/P/Bld) [Vol rate/Area] 46 mL/min/{1.73_m2} Low >60 [facility] Comment on above: Result Comment: mL/m in/1.73m2 CKD-EPI Creatinine Equation (2020) Performed By: #### L 100.0100, L500.2500 ####[facility] [address] [place], [address] Glucose [Mass/Vol] 155 mg/dL High 70-99 [facility] Comment on above: Result Comment: NICOL AKHTAR, SPOKE WITH KT Performed By: #### L 100.0100, L500.2500 ####[facility] [address] [place], [address] Potassium [Moles/Vol] 3.7 mmol/L Normal 3.3-5.1 [facility] Comment on above: Result Comment: NICOL AKHTAR, SPOKE WITH KT Performed By: #### L 100.0100, L500.2500 ####[facility] [address] [place], [address] Sodium [Moles/Vol] 145 mmol/L Normal 133-145 [facility] Comment on above: Result Comment: NICOL AKHTAR, SPOKE WITH KT Performed By: #### L 100.0100, L500.2500 ####[facility] [address] [place], [address] Urea nitrogen [Mass/Vol] 24 mg/dL High 4-19 [facility] Comment on above: Result Comment: NICOL AKHTAR, SPOKE WITH KT Performed By: #### L 100.0100, L500.2500 ####[facility] [address] [place], [address] Basophil percentageOrdered B y: Hugo Cervantes on 02-11-2025 Basophils/100 WBC (Bld) 0.5 % 0-1 [facility] Bedside Glucoseon 02-11-2025 FINGERSTICK GLU 187 mg/dL High 74-106 [facility] Comment on above: Result Comment: JAZ GEMENT OF PATIENT CARE PER NURSING PROTOCOL Performed By: #### L 501.080 ####[facility] [address] [place], [address] FINGERSTICK GLU 220 mg/dL High 74-106 [facility] Comment on above: Result Comment: JAZ GEMENT OF PATIENT CARE PER NURSING PROTOCOL Performed By: #### L 501.080 ####[facility] [address] [place], [address] FINGERSTICK GLU 137 mg/dL High 74-106 [facility] Comment on above: Result Comment: JAZ GEMENT OF PATIENT CARE PER NURSING PROTOCOL Performed By: #### L 501.080 ####[facility] [address] [place], [address] CBC W/Diff, Automatedon 07-3 Absolute Lymph 1.12 X10 3/uL Normal 0.83-4.51 [facility] Comment on above: Performed By: #### L 100.0100 ####[facility] [address] [place], [address] Absolute Neut 8.7 X10 3/uL High 2.0-7.7 [facility] Comment on above: Performed By: #### L 100.0100 ####[facility] [address] [place], [address] Basophils/100 WBC (Bld) 0.5 % Normal 0-1 [facility] Comment on above: Performed By: #### L 100.0100 ####[facility] [address] [place], [address] Eosinophils/100 WBC (Bld) 4.1 % Normal 0-5 [facility] Comment on above: Performed By: #### L 100.0100 ####[facility] [address] [place], [address] Erythrocyte distribution width (RBC) [Ratio] 13.7 % Normal 11.6-14.6 [facility] Comment on above: Performed By: #### L 100.0100 ####[facility] [address] [place], [address] Hematocrit (Bld) [Volume fraction] 31.3 % Low 40-54 [facility] Comment on above: Performed By: #### L 100.0100 ####[facility] [address] [place], [address] Hemoglobin (Bld) [Mass/Vol] 9.9 g/dL Low 13.0-16. 5 [facility] Comment on above: Performed By: #### L 100.0100 ####[facility] [address] [place], [address] IG% 2.100 High 0.0-0.9 [facility] Comment on above: Result Comment: IG% - Immature Granulocytes (promyelocytes, myelocytes andmetamyelocytes) > 1% indicates that a LEFT SHIFT is Present. Performed By: #### L 100.0100 ####[facility] [address] [place], [address] Lymphocytes/100 WBC (Bld) 9.9 % Low 19-41 [facility] Comment on above: Performed By: #### L 100.0100 ####[facility] [address] [place], [address] MCH (RBC) [Entitic mass] 27.6 pg Normal 27.0-32.0 [facility] Comment on above: Performed By: #### L 100.0100 ####[facility] [address] [place], [address] MCHC (RBC) [Mass/Vol] 31.6 g/dL Low 32-36 [facility] Comment on above: Performed By: #### L 100.0100 ####[facility] [address] [place], [address] MCV (RBC) [Entitic vol] 87.2 fL Normal 80-94 [facility] Comment on above: Performed By: #### L 100.0100 ####[facility] [address] [place], [address] Monocytes/100 WBC (Bld) 7.1 % Normal 0-10 [facility] Comment on above: Performed By: #### L 100.0100 ####[facility] [address] [place], [address] Neutrophils/100 WBC (Bld) 76.3 % High 47-70 [facility] Comment on above: Performed By: #### L 100.0100 ####[facility] [address] [place], [address] Nucleated RBC (Bld) [#/Vol] 0 10*3/uL Normal 0-5 [facility] Comment on above: Performed By: #### L 100.0100 ####[facility] [address] [place], [address] Platelet mean volume (Bld) [Entitic vol] 9.1 fL Normal 6.2-12.0 [facility] Comment on above: Performed By: #### L 100.0100 ####[facility] [address] [place], [address] Platelets (Bld) [#/Vol] 308 10*3/uL Normal 150-450 [facility] Comment on above: Performed By: #### L 100.0100 ####[facility] [address] [place], [address] RBC (Bld) [#/Vol] 3.59 10*6/uL Low 4.6-6.2 [facility] Comment on above: Performed By: #### L 100.0100 ####[facility] [address] [place], [address] RDW SD 44.1 fl High 35.1-43.9 [facility] Comment on above: Performed By: #### L 100.0100 ####[facility] [address] [place], [address] WBC (Bld) [#/Vol] 11.3 10*3/uL High 4.4-11.0 [facility] Comment on above: Performed By: #### L 100.0100 ####[facility] [address] [place], [address] Absolute Neut Normal 2.0-7.7 [facility] Comment on above: Result Comment: DUPL ICATE Performed By: #### L 100.0100, L500.2500 ####[facility] [address] [place], [address] HCT Normal 40-54 [facility] Comment on above: Result Comment: DUPL ICATE Performed By: #### L 100.0100, L500.2500 ####[facility] [address] [place], [address] HGB Normal 13.0-16.5 [facility] Comment on above: Result Comment: DUPL ICATE Performed By: #### L 100.0100, L500.2500 ####[facility] [address] [place], [address] MCH Normal 27.0-32.0 [facility] Comment on above: Result Comment: DUPL ICATE Performed By: #### L 100.0100, L500.2500 ####[facility] [address] [place], [address] MCHC Normal 32-36 [facility] Comment on above: Result Comment: DUPL ICATE Performed By: #### L 100.0100, L500.2500 ####[facility] [address] [place], [address] MCV Normal 80-94 [facility] Comment on above: Result Comment: DUPL ICATE Performed By: #### L 100.0100, L500.2500 ####[facility] [address] [place], [address] NEUT% Normal 47-70 [facility] Comment on above: Result Comment: DUPL ICATE Performed By: #### L 100.0100, L500.2500 ####[facility] [address] [place], [address] PLT Normal 150-450 [facility] Comment on above: Result Comment: DUPL ICATE Performed By: #### L 100.0100, L500.2500 ####[facility] [address] [place], [address] RBC Normal 4.6-6.2 [facility] Comment on above: Result Comment: DUPL ICATE Performed By: #### L 100.0100, L500.2500 ####[facility] [address] [place], [address] RDW CV Normal 11.6-14.6 [facility] Comment on above: Result Comment: DUPL ICATE Performed By: #### L 100.0100, L500.2500 ####[facility] [address] [place], [address] RDW SD Normal 35.1-43.9 [facility] Comment on above: Result Comment: DUPL ICATE Performed By: #### L 100.0100, L500.2500 ####[facility] [address] [place], [address] WBC Normal 4.4-11.0 [facility] Comment on above: Result Comment: DUPL ICATE Performed By: #### L 100.0100, L500.2500 ####[facility] [address] [place], [address] Carbon dioxide, total [Moles /volume] in Central venous bloodOrdered By: Hugo Cervantes on 02-11-2025 CO2 [Moles/Vol] 22.1 mmol/L 21.0-32.0 [facility] Chloride assayOrdered By: Shala Cervantes on 02-11-2025 Chloride [Moles/Vol] 109 mmol/L High 98-108 [facility] Electrocardiogram reportOrde red By: Júnior Chandra on 02-11-2025 EKG study [facility] Other Phone: Eosinophil percentageOrdered By: Hugo Cervantes on 02-11-2025 Eosinophils/100 WBC (Bld) 4.1 % 0-5 [facility] Erythrocyte distribution wid th ratioOrdered By: Hugo Cervantes on 02-11-2025 Erythrocyte distribution width (RBC) [Ratio] 13.7 % 11.6-14.6 [facility] Erythrocyte distribution wid th standard deviationOrdered By: Hugo Cervantes on 02-11-2025 Erythrocyte distribution width (RBC) [Ratio] 44.1 fl High 35.1-43.9 [facility] Glomerular filtration rate ( GFR) estimation/1.73 sq m using serum, plasma, or whole bOrdered By: Hugo Cervantes on 02-11-2025 GFR/1.73 sq M.predicted among non-blacks MDRD (S/P/Bld) [Vol rate/Area] 46 mL/min/{1.73_m2} Low >60 [facility] deOrdered By: Hugo Cervantes on 02-11-2025 Glucose [Mass/Vol] 187 mg/dL High 74-106 [facility] Hematocrit Auto (Bld) [Volum e fraction]Ordered By: Hugo Cervantes on 02-11-2025 Hematocrit (Bld) [Volume fraction] 31.3 % Low 40-54 [facility] Hemoglobin measurementOrdere d By: Hugo Cervantes on 02-11-2025 Hemoglobin (Bld) [Mass/Vol] 9.9 g/dL Low 13.0-16. 5 [facility] Immature granulocytes/100 WB C Auto (Bld)Ordered By: Hugo Cervantes on 02-11-2025 Immature granulocytes/100 WBC (Bld) 2.100 % High 0.0-0.9 [facility] MCV (mean corpuscular volume ) determinationOrdered By: Hugo Cervantes on 02-11-2025 MCV (RBC) [Entitic vol] 87.2 fL 80-94 [facility] Mean corpuscular hemoglobin (MCH) determinationOrdered By: Hugo Cervantes on 02-11-2025 MCH (RBC) [Entitic mass] 27.6 pg 27.0-32.0 [facility] Monocyte percentageOrdered B y: Hugo Cervantes on 02-11-2025 Monocytes/100 WBC (Bld) 7.1 % 0-10 [facility] Neutrophil percentageOrdered By: Hugo Cervantes on 02-11-2025 Neutrophils/100 WBC (Bld) 76.3 % High 47-70 [facility] Platelet countOrdered By: Shala Cervantes on 02-11-2025 Platelets (Bld) [#/Vol] 308 10*3/uL 150-450 [facility] Potassium measurement (mass/ volume)Ordered By: Hugo Cervantes on 02-11-2025 Potassium (Unsp spec) [Mass/Vol] 3.7 mmol/L 3.3-5.1 [facility] RBC Auto (Bld) [#/Vol]Ordere d By: Hugo Cervantes on 02-11-2025 RBC (Bld) [#/Vol] 3.59 10*6/uL Low 4.6-6.2 [facility] Serum creatinine measurement (mass/volume)Ordered By: Hugo Cervantes on 02-11-2025 Creatinine [Mass/Vol] 1.55 mg/dL High 0.70-1.20 [facility] Serum glucose measurement (m ass/volume)Ordered By: Hugo Cervantes on 02-11-2025 Glucose [Mass/Vol] 155 mg/dL High 70-99 [facility] Serum or plasma calcium antoine urement (mass/volume)Ordered By: Hugo Cervantes on 02-11-2025 Calcium [Mass/Vol] 9.0 mg/dL 7.6-11.0 [facility] Serum or plasma urea nitroge n measurement (mass/volume)Ordered By: Hugo Cervantes on 02-11-2025 Urea nitrogen [Mass/Vol] 24 mg/dL High 4-19 [facility] Sodium levelOrdered By: Tunde Cervantes on 02-11-2025 Sodium [Moles/Vol] 145 mmol/L 133-145 [facility] White blood cell (WBC) count Ordered By: Hugo Cervantes on 02-11-2025 WBC (Bld) [#/Vol] 11.3 10*3/uL High 4.4-11.0 [facility] 12 Lead EKGon 02-10-2025 12 Lead EKG Normal [facility] ACT Activated Clotting Timeo n 02-10-2025 ACTk CLOT TIME 222 sec High 74-137 [facility] Comment on above: Performed By: #### L 9100.0100 ####[facility] [address] [place], [address] ACTk CLOT TIME 205 sec High 74-137 [facility] Comment on above: Performed By: #### L 9100.0100 ####[facility] [address] [place], [address] AST(SGOT)on 02-10-2025 AST [Catalytic activity/Vol] 15 U/L Normal <=37 [facility] Comment on above: Performed By: #### L 300.4310, L300.3900, L501.4100 ####[facility] [address] [place], [address] Activated partial thrombopla stin time (aPTT) in platelet poor plasma by coagulation aOrdered By: Aneesh Ac on 02-10-2025 aPTT Coag (PPP) [Time] 33.4 s 24.1-36.2 [facility] Alanine Aminotransferas (SGP T)on 02-10-2025 ALT [Catalytic activity/Vol] 31 U/L Normal <=46 [facility] Comment on above: Performed By: #### L 500.2500, L501.4405, L100.0100 ####[facility] [address] [place], [address] Basic Metabolic Profile (BMP )on 02-10-2025 BUN/CRE 16.2 RATIO Normal 10-20 [facility] Comment on above: Performed By: #### L 500.2500, L501.4405, L100.0100 ####[facility] [address] [place], [address] Calcium [Mass/Vol] 9.1 mg/dL Normal 7.6-11.0 [facility] Comment on above: Performed By: #### L 500.2500, L501.4405, L100.0100 ####[facility] [address] [place], [address] Chloride [Moles/Vol] 108 mmol/L Normal 98-108 [facility] Comment on above: Performed By: #### L 500.2500, L501.4405, L100.0100 ####[facility] [address] [place], [address] CO2 [Moles/Vol] 23.0 mmol/L Normal 21.0-32.0 [facility] Comment on above: Performed By: #### L 500.2500, L501.4405, L100.0100 ####[facility] [address] [place], [address] Creatinine [Mass/Vol] 1.72 mg/dL High 0.70-1.20 [facility] Comment on above: Performed By: #### L 500.2500, L501.4405, L100.0100 ####[facility] [address] [place], [address] ECRCL 47.94 ml/min Low 50-250 [facility] Comment on above: Performed By: #### L 500.2500, L501.4405, L100.0100 ####[facility] [address] [place], [address] GAP 12 Normal 5-15 [facility] Comment on above: Performed By: #### L 500.2500, L501.4405, L100.0100 ####[facility] [address] [place], [address] GFR/1.73 sq M.predicted among non-blacks MDRD (S/P/Bld) [Vol rate/Area] 40 mL/min/{1.73_m2} Low >60 [facility] Comment on above: Result Comment: mL/m in/1.73m2 CKD-EPI Creatinine Equation (2020) Performed By: #### L 500.2500, L501.4405, L100.0100 ####[facility] [address] [place], [address] Glucose [Mass/Vol] 161 mg/dL High 70-99 [facility] Comment on above: Performed By: #### L 500.2500, L501.4405, L100.0100 ####[facility] [address] [place], [address] Potassium [Moles/Vol] 3.7 mmol/L Normal 3.3-5.1 [facility] Comment on above: Performed By: #### L 500.2500, L501.4405, L100.0100 ####[facility] [address] [place], [address] Sodium [Moles/Vol] 142 mmol/L Normal 133-145 [facility] Comment on above: Performed By: #### L 500.2500, L501.4405, L100.0100 ####[facility] [address] [place], [address] Urea nitrogen [Mass/Vol] 28 mg/dL High 4-19 [facility] Comment on above: Performed By: #### L 500.2500, L501.4405, L100.0100 ####[facility] [address] [place], [address] Bedside Glucoseon 02-10-2025 FINGERSTICK GLU 135 mg/dL High 74-106 [facility] Comment on above: Result Comment: JAZ GEMENT OF PATIENT CARE PER NURSING PROTOCOL Performed By: #### L 501.080 ####[facility] [address] [place], [address] FINGERSTICK GLU 132 mg/dL High 74-106 [facility] Comment on above: Result Comment: JAZ GEMENT OF PATIENT CARE PER NURSING PROTOCOL Performed By: #### L 501.080 ####[facility] [address] [place], [address] FINGERSTICK GLU 156 mg/dL High 74-106 [facility] Comment on above: Result Comment: JAZ GEMENT OF PATIENT CARE PER NURSING PROTOCOL Performed By: #### L 501.080 ####[facility] [address] [place], [address] FINGERSTICK GLU 156 mg/dL High 74-106 [facility] Comment on above: Result Comment: JAZ GEMENT OF PATIENT CARE PER NURSING PROTOCOL Performed By: #### L 501.080 ####[facility] [address] [place], [address] FINGERSTICK GLU 153 mg/dL High 74-106 [facility] Comment on above: Result Comment: JAZ GEMENT OF PATIENT CARE PER NURSING PROTOCOL Performed By: #### L 501.080 ####[facility] [address] [place], [address] CBC W/Diff, Automatedon 07-3 0-2025 Absolute Lymph 1.25 X10 3/uL Normal 0.83-4.51 [facility] Comment on above: Performed By: #### L 500.2500, L501.4405, L100.0100 ####[facility] [address] [place], [address] Absolute Neut 8.3 X10 3/uL High 2.0-7.7 [facility] Comment on above: Performed By: #### L 500.2500, L501.4405, L100.0100 ####[facility] [address] [place], [address] Basophils/100 WBC (Bld) 0.4 % Normal 0-1 [facility] Comment on above: Performed By: #### L 500.2500, L501.4405, L100.0100 ####[facility] [address] [place], [address] Eosinophils/100 WBC (Bld) 4.7 % Normal 0-5 [facility] Comment on above: Performed By: #### L 500.2500, L501.4405, L100.0100 ####[facility] [address] [place], [address] Erythrocyte distribution width (RBC) [Ratio] 13.7 % Normal 11.6-14.6 [facility] Comment on above: Performed By: #### L 500.2500, L501.4405, L100.0100 ####[facility] [address] [place], [address] Hematocrit (Bld) [Volume fraction] 30.5 % Low 40-54 [facility] Comment on above: Performed By: #### L 500.2500, L501.4405, L100.0100 ####[facility] [address] [place], [address] Hemoglobin (Bld) [Mass/Vol] 9.7 g/dL Low 13.0-16. 5 [facility] Comment on above: Performed By: #### L 500.2500, L501.4405, L100.0100 ####[facility] [address] [place], [address] IG% 2.300 High 0.0-0.9 [facility] Comment on above: Result Comment: IG% - Immature Granulocytes (promyelocytes, myelocytes andmetamyelocytes) > 1% indicates that a LEFT SHIFT is Present. Performed By: #### L 500.2500, L501.4405, L100.0100 ####[facility] [address] [place], [address] Lymphocytes/100 WBC (Bld) 11.0 % Low 19-41 [facility] Comment on above: Performed By: #### L 500.2500, L501.4405, L100.0100 ####[facility] [address] [place], [address] MCH (RBC) [Entitic mass] 27.6 pg Normal 27.0-32.0 [facility] Comment on above: Performed By: #### L 500.2500, L501.4405, L100.0100 ####[facility] [address] [place], [address] MCHC (RBC) [Mass/Vol] 31.8 g/dL Low 32-36 [facility] Comment on above: Performed By: #### L 500.2500, L501.4405, L100.0100 ####[facility] [address] [place], [address] MCV (RBC) [Entitic vol] 86.9 fL Normal 80-94 [facility] Comment on above: Performed By: #### L 500.2500, L501.4405, L100.0100 ####[facility] [address] [place], [address] Monocytes/100 WBC (Bld) 8.5 % Normal 0-10 [facility] Comment on above: Performed By: #### L 500.2500, L501.4405, L100.0100 ####[facility] [address] [place], [address] Neutrophils/100 WBC (Bld) 73.1 % High 47-70 [facility] Comment on above: Performed By: #### L 500.2500, L501.4405, L100.0100 ####[facility] [address] [place], [address] Nucleated RBC (Bld) [#/Vol] 0 10*3/uL Normal 0-5 [facility] Comment on above: Performed By: #### L 500.2500, L501.4405, L100.0100 ####[facility] [address] [place], [address] Platelet mean volume (Bld) [Entitic vol] 9.1 fL Normal 6.2-12.0 [facility] Comment on above: Performed By: #### L 500.2500, L501.4405, L100.0100 ####[facility] [address] [place], [address] Platelets (Bld) [#/Vol] 314 10*3/uL Normal 150-450 [facility] Comment on above: Performed By: #### L 500.2500, L501.4405, L100.0100 ####[facility] [address] [place], [address] RBC (Bld) [#/Vol] 3.51 10*6/uL Low 4.6-6.2 [facility] Comment on above: Performed By: #### L 500.2500, L501.4405, L100.0100 ####[facility] [address] [place], [address] RDW SD 43.9 fl Normal 35.1-43.9 [facility] Comment on above: Performed By: #### L 500.2500, L501.4405, L100.0100 ####[facility] [address] [place], [address] WBC (Bld) [#/Vol] 11.4 10*3/uL High 4.4-11.0 [facility] Comment on above: Performed By: #### L 500.2500, L501.4405, L100.0100 ####[facility] [address] [place], [address] Culture, Anaerobic Any Sourc ace 02-10-2025 CUAN UNK UNK Bone 5th left Metatarsal toe No anaerobic bacteria isolated. Normal [facility] Comment on above: Performed By: #### M 100.4001, M100.3000, M100.2000 ####[facility] [address] [place], [address] CUAN UNK UNK Clearance Fragment left 5th metatarsal toe No growth in 5 days. Normal [facility] Comment on above: Performed By: #### M 100.2000, M100.3000, M100.4001 ####[facility] [address] [place], [address] No Panel InformationOrdered By: Aneesh Ac on 02-10-2025 15 U/L <38 [facility] Operative Reporton Operative Report Normal [facility] Partial Thromboplast Timeon 02-10-2025 aPTT Coag (Bld) [Time] 33.4 s Normal 24.1-36.2 [facility] Comment on above: Performed By: #### L 300.4310, L300.3900, L501.4100 ####[facility] [address] [place], [address] Prothrombin Time w/INRon INR Coag (PPP) [Relative time] 1.3 {INR} Normal [facility] Comment on above: Performed By: #### L 300.4310, L300.3900, L501.4100 ####[facility] [address] [place], [address] PT Coag (PPP) [Time] 16.2 s High 11.7-14.9 [facility] Comment on above: Performed By: #### L 300.4310, L300.3900, L501.4100 ####[facility] [address] [place], [address] Prothrombin timeOrdered By: Aneesh Ac on 02-10-2025 PT Coag (PPP) [Time] 16.2 s High 11.7-14.9 [facility] Serum or plasma alanine davis otransferase (ALT) measurementOrdered By: Aneesh Ac on 02-10-2025 ALT [Catalytic activity/Vol] 31 U/L <47 [facility] Surgical pathology reportOrd ered By: Umm Garcia on 02-10-2025 Surgical pathology study [facility] Trough vancomycin levelOrder ed By: Hugo Cervantes on 02-10-2025 Vancomycin trough [Mass/Vol] 16.6 ug/mL High 5.0-15.0 [facility] Vancomycin, Trough Levelon 0 02-10-2025 VANCO, TROUGH 16.6 ug/mL High 5.0-15.0 [facility] Comment on above: Order Comment: Comme nts: Trough to be drawn 30 mins prior to scheduled [id number] Result Comment: Jalen mmended goal trough ranges [...] therapy recommended for serious lifethreatening infections include:- Haqtlrlwfh-Ejmiapdkgooz-Vepcuvjyi (Ventilator/Healtcare Associated)-SepsisPLEASE CONTACT PHARMACY SERVICES (#7820) FOR INTERPRETATIONOF RESULTS. Performed By: #### L 501.8820 ####[facility] [address] [place], [address] Basic Metabolic Profile (BMP )on 02-09-2025 BUN/CRE 14.2 RATIO Normal 10-20 [facility] Comment on above: Performed By: #### L 100.0100, L500.2500 ####[facility] [address] [place], [address] Calcium [Mass/Vol] 9.0 mg/dL Normal 7.6-11.0 [facility] Comment on above: Performed By: #### L 100.0100, L500.2500 ####[facility] [address] [place], [address] Chloride [Moles/Vol] 110 mmol/L High 98-108 [facility] Comment on above: Performed By: #### L 100.0100, L500.2500 ####[facility] [address] [place], [address] CO2 [Moles/Vol] 21.6 mmol/L Normal 21.0-32.0 [facility] Comment on above: Performed By: #### L 100.0100, L500.2500 ####[facility] [address] [place], [address] Creatinine [Mass/Vol] 1.70 mg/dL High 0.70-1.20 [facility] Comment on above: Performed By: #### L 100.0100, L500.2500 ####[facility] [address] [place], [address] ECRCL 61.27 ml/min Normal 50-250 [facility] Comment on above: Performed By: #### L 100.0100, L500.2500 ####[facility] [address] [place], [address] GAP 12 Normal 5-15 [facility] Comment on above: Performed By: #### L 100.0100, L500.2500 ####[facility] [address] [place], [address] GFR/1.73 sq M.predicted among non-blacks MDRD (S/P/Bld) [Vol rate/Area] 41 mL/min/{1.73_m2} Low >60 [facility] Comment on above: Result Comment: mL/m in/1.73m2 CKD-EPI Creatinine Equation (2020) Performed By: #### L 100.0100, L500.2500 ####[facility] [address] [place], [address] Glucose [Mass/Vol] 142 mg/dL High 70-99 [facility] Comment on above: Performed By: #### L 100.0100, L500.2500 ####[facility] [address] [place], [address] Potassium [Moles/Vol] 4.1 mmol/L Normal 3.3-5.1 [facility] Comment on above: Result Comment: Hemo lysis present, Results??could be affected.?? Performed By: #### L 100.0100, L500.2500 ####[facility] [address] [place], [address] Sodium [Moles/Vol] 143 mmol/L Normal 133-145 [facility] Comment on above: Performed By: #### L 100.0100, L500.2500 ####[facility] [address] [place], [address] Urea nitrogen [Mass/Vol] 24 mg/dL High 4-19 [facility] Comment on above: Performed By: #### L 100.0100, L500.2500 ####[facility] [address] [place], [address] Bedside Glucoseon 02-09-2025 FINGERSTICK GLU 140 mg/dL High 74-106 [facility] Comment on above: Result Comment: JAZ GEMENT OF PATIENT CARE PER NURSING PROTOCOL Performed By: #### L 501.080 ####[facility] [address] [place], [address] FINGERSTICK GLU 145 mg/dL High 74-106 [facility] Comment on above: Result Comment: JAZ GEMENT OF PATIENT CARE PER NURSING PROTOCOL Performed By: #### L 501.080 ####[facility] [address] [place], [address] FINGERSTICK GLU 127 mg/dL High 74-106 [facility] Comment on above: Result Comment: JAZ GEMENT OF PATIENT CARE PER NURSING PROTOCOL Performed By: #### L 501.080 ####[facility] [address] [place], [address] Blood polychromasia detectio n by light microscopyOrdered By: Hugo Cervantes on 02-09-2025 Polychromasia LM Ql (Bld) 1+ [facility] CBC W/Diff, Automatedon 01-13 POLYCHROMASIA 1+ Normal [facility] Comment on above: Performed By: #### L 100.0100, L500.2500 ####[facility] [address] [place], [address] Wound Cultureon 02-09-2025 WC Normal [facility] Comment on above: Performed By: #### M 100.4001, M100.3000, M100.2000 ####[facility] [address] [place], [address] Assessment of wrist artery p atency prior to arterial punctureOrdered By: Hugo Cervantes on 02-08-2025 Arterial patency Wrist artery --pre arterial puncture Positive [facility] Basic Metabolic Profile (BMP )on 02-08-2025 BUN/CRE 19.1 RATIO Normal 10-20 [facility] Comment on above: Performed By: #### L 100.0100, L500.2500 ####[facility] [address] [place], [address] Calcium [Mass/Vol] 8.9 mg/dL Normal 7.6-11.0 [facility] Comment on above: Performed By: #### L 100.0100, L500.2500 ####[facility] [address] [place], [address] Chloride [Moles/Vol] 110 mmol/L High 98-108 [facility] Comment on above: Performed By: #### L 100.0100, L500.2500 ####[facility] [address] [place], [address] CO2 [Moles/Vol] 24.2 mmol/L Normal 21.0-32.0 [facility] Comment on above: Performed By: #### L 100.0100, L500.2500 ####[facility] [address] [place], [address] Creatinine [Mass/Vol] 1.71 mg/dL High 0.70-1.20 [facility] Comment on above: Performed By: #### L 100.0100, L500.2500 ####[facility] [address] [place], [address] ECRCL 48.63 ml/min Low 50-250 [facility] Comment on above: Performed By: #### L 100.0100, L500.2500 ####[facility] [address] [place], [address] GAP 9 Normal 5-15 [facility] Comment on above: Performed By: #### L 100.0100, L500.2500 ####[facility] [address] [place], [address] GFR/1.73 sq M.predicted among non-blacks MDRD (S/P/Bld) [Vol rate/Area] 41 mL/min/{1.73_m2} Low >60 [facility] Comment on above: Result Comment: mL/m in/1.73m2 CKD-EPI Creatinine Equation (2020) Performed By: #### L 100.0100, L500.2500 ####[facility] [address] [place], [address] Glucose [Mass/Vol] 156 mg/dL High 70-99 [facility] Comment on above: Performed By: #### L 100.0100, L500.2500 ####[facility] [address] [place], [address] Potassium [Moles/Vol] 3.8 mmol/L Normal 3.3-5.1 [facility] Comment on above: Performed By: #### L 100.0100, L500.2500 ####[facility] [address] [place], [address] Sodium [Moles/Vol] 143 mmol/L Normal 133-145 [facility] Comment on above: Performed By: #### L 100.0100, L500.2500 ####[facility] [address] [place], [address] Urea nitrogen [Mass/Vol] 33 mg/dL High 4-19 [facility] Comment on above: Performed By: #### L 100.0100, L500.2500 ####[facility] [address] [place], [address] Bedside Glucoseon 02-08-2025 FINGERSTICK GLU 135 mg/dL High 74-106 [facility] Comment on above: Result Comment: JAZ GEMENT OF PATIENT CARE PER NURSING PROTOCOL Performed By: #### L 501.080 ####[facility] [address] [place], [address] FINGERSTICK GLU 141 mg/dL High 74-106 [facility] Comment on above: Result Comment: JAZ GEMENT OF PATIENT CARE PER NURSING PROTOCOL Performed By: #### L 501.080 ####[facility] [address] [place], [address] FINGERSTICK GLU 145 mg/dL High 74-106 [facility] Comment on above: Result Comment: JAZ GEMENT OF PATIENT CARE PER NURSING PROTOCOL Performed By: #### L 501.080 ####[facility] [address] [place], [address] Blood Gases by CPSon 025 EUGENIO TEST Positive Normal [facility] Comment on above: Performed By: #### L 9000.0800 ####[facility] [address] [place], [address] Base excess Calc (Bld) [Moles/Vol] 5 mmol/L High -2 to +2 [facility] Comment on above: Performed By: #### L 9000.08 ####[facility] [address] [place], [address] Blood Gas Type ART Normal [facility] Comment on above: Performed By: #### L 8999.08 ####[facility] [address] [place], [address] CO2 [Moles/Vol] 30 mmol/L Normal [facility] Comment on above: Performed By: #### L 8999.08 ####[facility] [address] [place], [address] FI02 2.0 Normal [facility] Comment on above: Performed By: #### L 8999.08 ####[facility] [address] [place], [address] HCO3 (Bld) [Moles/Vol] 28.8 mmol/L High 22-26 [facility] Comment on above: Performed By: #### L 8999.0800 ####[facility] [address] [place], [address] Mode Not entered Normal [facility] Comment on above: Performed By: #### L 8999.08 ####[facility] [address] [place], [address] O2 Delivery Dev Cannula Normal [facility] Comment on above: Performed By: #### L 8999.08 ####[facility] [address] [place], [address] pCO2 42.1 mmHg Normal 35-45 [facility] Comment on above: Performed By: #### L 8999.08 ####[facility] [address] [place], [address] pH (Bld) 7.44 [pH] Normal 7.35-7.45 [facility] Comment on above: Performed By: #### L 8999.08 ####[facility] [address] [place], [address] PO2 82 mmHG Normal 75-100 [facility] Comment on above: Performed By: #### L 9000.0800 ####[facility] [address] [place], [address] SITE R Radial Normal [facility] Comment on above: Performed By: #### L 9000.0800 ####[facility] [address] [place], [address] SO2 96 Normal 95-99 [facility] Comment on above: Performed By: #### L 9000.0800 ####[facility] [address] [place], [address] Blood base excess determinat ionOrdered By: Hugo Cervantes on 02-08-2025 Base excess Calc (BldV) [Moles/Vol] 5 mmol/L High -2-2 [facility] Blood bicarbonate measuremen tOrdered By: Hugo Cervantes on 02-08-2025 HCO3 (Bld) [Moles/Vol] 28.8 mmol/L High 22-26 [facility] CBC W/Diff, Automatedon 01-13 Absolute Lymph 1.25 X10 3/uL Normal 0.83-4.51 [facility] Comment on above: Performed By: #### L 100.0100, L500.2500 ####[facility] [address] [place], [address] Absolute Neut 7.9 X10 3/uL High 2.0-7.7 [facility] Comment on above: Performed By: #### L 100.0100, L500.2500 ####[facility] [address] [place], [address] Basophils/100 WBC (Bld) 0.3 % Normal 0-1 [facility] Comment on above: Performed By: #### L 100.0100, L500.2500 ####[facility] [address] [place], [address] Eosinophils/100 WBC (Bld) 4.6 % Normal 0-5 [facility] Comment on above: Performed By: #### L 100.0100, L500.2500 ####[facility] [address] [place], [address] Erythrocyte distribution width (RBC) [Ratio] 13.7 % Normal 11.6-14.6 [facility] Comment on above: Performed By: #### L 100.0100, L500.2500 ####[facility] [address] [place], [address] Hematocrit (Bld) [Volume fraction] 29.3 % Low 40-54 [facility] Comment on above: Performed By: #### L 100.0100, L500.2500 ####[facility] [address] [place], [address] Hemoglobin (Bld) [Mass/Vol] 9.6 g/dL Low 13.0-16. 5 [facility] Comment on above: Performed By: #### L 100.0100, L500.2500 ####[facility] [address] [place], [address] IG% 1.400 High 0.0-0.9 [facility] Comment on above: Result Comment: IG% - Immature Granulocytes (promyelocytes, myelocytes andmetamyelocytes) > 1% indicates that a LEFT SHIFT is Present. Performed By: #### L 100.0100, L500.2500 ####[facility] [address] [place], [address] Lymphocytes/100 WBC (Bld) 11.5 % Low 19-41 [facility] Comment on above: Performed By: #### L 100.0100, L500.2500 ####[facility] [address] [place], [address] MCH (RBC) [Entitic mass] 27.8 pg Normal 27.0-32.0 [facility] Comment on above: Performed By: #### L 100.0100, L500.2500 ####[facility] [address] [place], [address] MCHC (RBC) [Mass/Vol] 32.8 g/dL Normal 32-36 [facility] Comment on above: Performed By: #### L 100.0100, L500.2500 ####[facility] [address] [place], [address] MCV (RBC) [Entitic vol] 84.9 fL Normal 80-94 [facility] Comment on above: Performed By: #### L 100.0100, L500.2500 ####[facility] [address] [place], [address] Monocytes/100 WBC (Bld) 9.5 % Normal 0-10 [facility] Comment on above: Performed By: #### L 100.0100, L500.2500 ####[facility] [address] [place], [address] Neutrophils/100 WBC (Bld) 72.7 % High 47-70 [facility] Comment on above: Performed By: #### L 100.0100, L500.2500 ####[facility] [address] [place], [address] Nucleated RBC (Bld) [#/Vol] 0 10*3/uL Normal 0-5 [facility] Comment on above: Performed By: #### L 100.0100, L500.2500 ####[facility] [address] [place], [address] Platelet mean volume (Bld) [Entitic vol] 8.8 fL Normal 6.2-12.0 [facility] Comment on above: Performed By: #### L 100.0100, L500.2500 ####[facility] [address] [place], [address] Platelets (Bld) [#/Vol] 263 10*3/uL Normal 150-450 [facility] Comment on above: Performed By: #### L 100.0100, L500.2500 ####[facility] [address] [place], [address] RBC (Bld) [#/Vol] 3.45 10*6/uL Low 4.6-6.2 [facility] Comment on above: Performed By: #### L 100.0100, L500.2500 ####[facility] [address] [place], [address] RDW SD 42.7 fl Normal 35.1-43.9 [facility] Comment on above: Performed By: #### L 100.0100, L500.2500 ####[facility] [address] [place], [address] WBC (Bld) [#/Vol] 10.9 10*3/uL Normal 4.4-11.0 [facility] Comment on above: Performed By: #### L 100.0100, L500.2500 ####[facility] [address] [place], [address] Consultation - Infectious Dx on 02-08-2025 Consultation - Infectious Dx Normal [facility] Culture, Blood (WB)on 2024 CUB Blood cultures x2, from two different sites No growth in 5 days. Normal [facility] Comment on above: Performed By: #### L 300.3900, L300.4310, L503.6005, M200.1000, L100.0100, L500.4050 ####[facility] [address] [place], [address] Measurement, pHOrdered By: Breonna Cervantes on 02-08-2025 pH (Unsp spec) 7.44 [pH] 7.35-7.45 [facility] No Panel InformationOrdered By: Hugo Cervantes on 02-08-2025 ART [facility] R Radial [facility] Not entered [facility] Cannula [facility] Total carbon dioxide measure mentOrdered By: Hugo Cervantes on 02-08-2025 CO2 [Moles/Vol] 30 mmol/L [facility] Vancomycin, Trough Levelon 0 02-08-2025 VANCO, TROUGH 20.6 ug/mL High 5.0-15.0 [facility] Comment on above: Order Comment: Comme nts: DRAW 30 MIN PRIOR TO [id number] Result Comment: Jalen mmended goal trough ranges [...] therapy recommended for serious lifethreatening infections include:- Uzaexzvmfj-Sgkhxrdvwsvc-Jfbhtbgdc (Ventilator/Healtcare Associated)-SepsisPLEASE CONTACT PHARMACY SERVICES (#4119) FOR INTERPRETATIONOF RESULTS. Performed By: #### L 501.4425 ####[facility] [address] [place], [address] Basic Metabolic Profile (BMP )on 02-07-2025 BUN/CRE 22.7 RATIO High 10-20 [facility] Comment on above: Performed By: #### L 100.0100, L500.2500 ####[facility] [address] [place], [address] Calcium [Mass/Vol] 8.7 mg/dL Normal 7.6-11.0 [facility] Comment on above: Performed By: #### L 100.0100, L500.2500 ####[facility] [address] [place], [address] Chloride [Moles/Vol] 109 mmol/L High 98-108 [facility] Comment on above: Performed By: #### L 100.0100, L500.2500 ####[facility] [address] [place], [address] CO2 [Moles/Vol] 22.6 mmol/L Normal 21.0-32.0 [facility] Comment on above: Performed By: #### L 100.0100, L500.2500 ####[facility] [address] [place], [address] Creatinine [Mass/Vol] 1.75 mg/dL High 0.70-1.20 [facility] Comment on above: Performed By: #### L 100.0100, L500.2500 ####[facility] [address] [place], [address] ECRCL 47.38 ml/min Low 50-250 [facility] Comment on above: Performed By: #### L 100.0100, L500.2500 ####[facility] [address] [place], [address] GAP 10 Normal 5-15 [facility] Comment on above: Performed By: #### L 100.0100, L500.2500 ####[facility] [address] [place], [address] GFR/1.73 sq M.predicted among non-blacks MDRD (S/P/Bld) [Vol rate/Area] 40 mL/min/{1.73_m2} Low >60 [facility] Comment on above: Result Comment: mL/m in/1.73m2 CKD-EPI Creatinine Equation (2020) Performed By: #### L 100.0100, L500.2500 ####[facility] [address] [place], [address] Glucose [Mass/Vol] 150 mg/dL High 70-99 [facility] Comment on above: Performed By: #### L 100.0100, L500.2500 ####[facility] [address] [place], [address] Potassium [Moles/Vol] 3.8 mmol/L Normal 3.3-5.1 [facility] Comment on above: Performed By: #### L 100.0100, L500.2500 ####[facility] [address] [place], [address] Sodium [Moles/Vol] 142 mmol/L Normal 133-145 [facility] Comment on above: Performed By: #### L 100.0100, L500.2500 ####[facility] [address] [place], [address] Urea nitrogen [Mass/Vol] 40 mg/dL High 4-19 [facility] Comment on above: Performed By: #### L 100.0100, L500.2500 ####[facility] [address] [place], [address] Bedside Glucoseon 02-07-2025 FINGERSTICK GLU 174 mg/dL High 74-106 [facility] Comment on above: Result Comment: JAZ GEMENT OF PATIENT CARE PER NURSING PROTOCOL Performed By: #### L 501.080 ####[facility] [address] [place], [address] FINGERSTICK GLU 143 mg/dL High 74-106 [facility] Comment on above: Result Comment: JAZ GEMENT OF PATIENT CARE PER NURSING PROTOCOL Performed By: #### L 501.080 ####[facility] [address] [place], [address] FINGERSTICK GLU 156 mg/dL High 74-106 [facility] Comment on above: Result Comment: JAZ GEMENT OF PATIENT CARE PER NURSING PROTOCOL Performed By: #### L 501.080 ####[facility] [address] [place], [address] FINGERSTICK GLU 146 mg/dL High 74-106 [facility] Comment on above: Result Comment: JAZ BRANDON OF PATIENT CARE PER NURSING PROTOCOL Performed By: #### L 501.080 ####[facility] [address] [place], [address] CBC W/Diff, Automatedon 07-2 Absolute Lymph 1.37 X10 3/uL Normal 0.83-4.51 [facility] Comment on above: Performed By: #### L 100.0100, L500.2500 ####[facility] [address] [place], [address] Absolute Neut 6.1 X10 3/uL Normal 2.0-7.7 [facility] Comment on above: Performed By: #### L 100.0100, L500.2500 ####[facility] [address] [place], [address] Basophils/100 WBC (Bld) 0.7 % Normal 0-1 [facility] Comment on above: Performed By: #### L 100.0100, L500.2500 ####[facility] [address] [place], [address] Eosinophils/100 WBC (Bld) 6.8 % High 0-5 [facility] Comment on above: Performed By: #### L 100.0100, L500.2500 ####[facility] [address] [place], [address] Erythrocyte distribution width (RBC) [Ratio] 13.6 % Normal 11.6-14.6 [facility] Comment on above: Performed By: #### L 100.0100, L500.2500 ####[facility] [address] [place], [address] Hematocrit (Bld) [Volume fraction] 29.6 % Low 40-54 [facility] Comment on above: Performed By: #### L 100.0100, L500.2500 ####[facility] [address] [place], [address] Hemoglobin (Bld) [Mass/Vol] 9.5 g/dL Low 13.0-16. 5 [facility] Comment on above: Performed By: #### L 100.0100, L500.2500 ####[facility] [address] [place], [address] IG% 1.900 High 0.0-0.9 [facility] Comment on above: Result Comment: IG% - Immature Granulocytes (promyelocytes, myelocytes andmetamyelocytes) > 1% indicates that a LEFT SHIFT is Present. Performed By: #### L 100.0100, L500.2500 ####[facility] [address] [place], [address] Lymphocytes/100 WBC (Bld) 15.0 % Low 19-41 [facility] Comment on above: Performed By: #### L 100.0100, L500.2500 ####[facility] [address] [place], [address] MCH (RBC) [Entitic mass] 27.5 pg Normal 27.0-32.0 [facility] Comment on above: Performed By: #### L 100.0100, L500.2500 ####[facility] [address] [place], [address] MCHC (RBC) [Mass/Vol] 32.1 g/dL Normal 32-36 [facility] Comment on above: Performed By: #### L 100.0100, L500.2500 ####[facility] [address] [place], [address] MCV (RBC) [Entitic vol] 85.5 fL Normal 80-94 [facility] Comment on above: Performed By: #### L 100.0100, L500.2500 ####[facility] [address] [place], [address] Monocytes/100 WBC (Bld) 9.5 % Normal 0-10 [facility] Comment on above: Performed By: #### L 100.0100, L500.2500 ####[facility] [address] [place], [address] Neutrophils/100 WBC (Bld) 66.1 % Normal 47-70 [facility] Comment on above: Performed By: #### L 100.0100, L500.2500 ####[facility] [address] [place], [address] Nucleated RBC (Bld) [#/Vol] 0 10*3/uL Normal 0-5 [facility] Comment on above: Performed By: #### L 100.0100, L500.2500 ####[facility] [address] [place], [address] Platelet mean volume (Bld) [Entitic vol] 9.0 fL Normal 6.2-12.0 [facility] Comment on above: Performed By: #### L 100.0100, L500.2500 ####[facility] [address] [place], [address] Platelets (Bld) [#/Vol] 258 10*3/uL Normal 150-450 [facility] Comment on above: Performed By: #### L 100.0100, L500.2500 ####[facility] [address] [place], [address] RBC (Bld) [#/Vol] 3.46 10*6/uL Low 4.6-6.2 [facility] Comment on above: Performed By: #### L 100.0100, L500.2500 ####[facility] [address] [place], [address] RDW SD 42.4 fl Normal 35.1-43.9 [facility] Comment on above: Performed By: #### L 100.0100, L500.2500 ####[facility] [address] [place], [address] WBC (Bld) [#/Vol] 9.2 10*3/uL Normal 4.4-11.0 [facility] Comment on above: Performed By: #### L 100.0100, L500.2500 ####[facility] [address] [place], [address] Culture, Anaerobic Any Sourc ace 02-07-2025 CUAN ONLY AEROBIC SWAB WA S SENT DRUGS WITH ANAROBES MAYBE INHIBITED. No anaerobic bacteria isolated. [facility] Comment on above: Performed By: #### M 100.4001, L8200.1075, M100.3000, M100.2000 ####[facility] [address] [place], [address] Serum or plasma vancomycin m easurement (mass/volume)Ordered By: Hugo Cervantes on 02-07-2025 Vancomycin [Mass/Vol] 17.6 ug/mL High 0.0-15.0 [facility] Vancomycin, Random Levelon 0 02-07-2025 VANCO, RANDOM 17.6 ug/mL High 0.0-15.0 [facility] Comment on above: Result Comment: VANC OMYCIN STANDARD DRUG THERAPY: CRITICAL VALUE IS > 15.0 mg/LVANCOMYCIN HIGH INTENSITY THERAPY: CRITICAL VALUE IS > 20.0 mg/LPLEASE CONTACT PHARMACY SERVICES (#2584) FOR INTERPRETATIONOF RESULTS. THIS RESULT DOES NOT REPRESENT A PEAK OR TROUGHLEVEL FOR THIS DRUG. Performed By: #### L 501.8850 ####[facility] [address] [place], [address] Wound Cultureon 02-07-2025 WC Normal [facility] Comment on above: Performed By: #### M 100.4001, L8200.1075, M100.3000, M100.2000 ####[facility] [address] [place], [address] Basic Metabolic Profile (BMP )on 02-06-2025 BUN/CRE 22.0 RATIO High 10-20 [facility] Comment on above: Performed By: #### L 100.0100, L500.2500 ####[facility] [address] [place], [address] Calcium [Mass/Vol] 8.8 mg/dL Normal 7.6-11.0 [facility] Comment on above: Performed By: #### L 100.0100, L500.2500 ####[facility] [address] [place], [address] Chloride [Moles/Vol] 109 mmol/L High 98-108 [facility] Comment on above: Performed By: #### L 100.0100, L500.2500 ####[facility] [address] [place], [address] CO2 [Moles/Vol] 21.2 mmol/L Normal 21.0-32.0 [facility] Comment on above: Performed By: #### L 100.0100, L500.2500 ####[facility] [address] [place], [address] Creatinine [Mass/Vol] 1.83 mg/dL High 0.70-1.20 [facility] Comment on above: Performed By: #### L 100.0100, L500.2500 ####[facility] [address] [place], [address] ECRCL 45.10 ml/min Low 50-250 [facility] Comment on above: Performed By: #### L 100.0100, L500.2500 ####[facility] [address] [place], [address] GAP 11 Normal 5-15 [facility] Comment on above: Performed By: #### L 100.0100, L500.2500 ####[facility] [address] [place], [address] GFR/1.73 sq M.predicted among non-blacks MDRD (S/P/Bld) [Vol rate/Area] 38 mL/min/{1.73_m2} Low >60 [facility] Comment on above: Result Comment: mL/m in/1.73m2 CKD-EPI Creatinine Equation (2020) Performed By: #### L 100.0100, L500.2500 ####[facility] [address] [place], [address] Glucose [Mass/Vol] 150 mg/dL High 70-99 [facility] Comment on above: Performed By: #### L 100.0100, L500.2500 ####[facility] [address] [place], [address] Potassium [Moles/Vol] 3.9 mmol/L Normal 3.3-5.1 [facility] Comment on above: Performed By: #### L 100.0100, L500.2500 ####[facility] [address] [place], [address] Sodium [Moles/Vol] 141 mmol/L Normal 133-145 [facility] Comment on above: Performed By: #### L 100.0100, L500.2500 ####[facility] [address] [place], [address] Urea nitrogen [Mass/Vol] 40 mg/dL High 4-19 [facility] Comment on above: Performed By: #### L 100.0100, L500.2500 ####[facility] [address] [place], [address] Bedside Glucoseon 02-06-2025 FINGERSTICK GLU 169 mg/dL High 74-106 [facility] Comment on above: Result Comment: JAZ GEMENT OF PATIENT CARE PER NURSING PROTOCOL Performed By: #### L 501.080 ####[facility] [address] [place], [address] FINGERSTICK GLU 140 mg/dL High 74-106 [facility] Comment on above: Result Comment: JAZ GEMENT OF PATIENT CARE PER NURSING PROTOCOL Performed By: #### L 501.080 ####[facility] [address] [place], [address] FINGERSTICK GLU 186 mg/dL High 74-106 [facility] Comment on above: Result Comment: JAZ GEMENT OF PATIENT CARE PER NURSING PROTOCOL Performed By: #### L 501.080 ####[facility] [address] [place], [address] FINGERSTICK GLU 147 mg/dL High 74-106 [facility] Comment on above: Result Comment: JAZ GEMENT OF PATIENT CARE PER NURSING PROTOCOL Performed By: #### L 501.080 ####[facility] [address] [place], [address] CBC W/Diff, Automatedon 07-2 Absolute Lymph 1.00 X10 3/uL Normal 0.83-4.51 [facility] Comment on above: Performed By: #### L 100.0100, L500.2500 ####[facility] [address] [place], [address] Absolute Neut 7.3 X10 3/uL Normal 2.0-7.7 [facility] Comment on above: Performed By: #### L 100.0100, L500.2500 ####[facility] [address] [place], [address] Basophils/100 WBC (Bld) 0.4 % Normal 0-1 [facility] Comment on above: Performed By: #### L 100.0100, L500.2500 ####[facility] [address] [place], [address] Eosinophils/100 WBC (Bld) 5.9 % High 0-5 [facility] Comment on above: Performed By: #### L 100.0100, L500.2500 ####[facility] [address] [place], [address] Erythrocyte distribution width (RBC) [Ratio] 13.6 % Normal 11.6-14.6 [facility] Comment on above: Performed By: #### L 100.0100, L500.2500 ####[facility] [address] [place], [address] Hematocrit (Bld) [Volume fraction] 30.5 % Low 40-54 [facility] Comment on above: Performed By: #### L 100.0100, L500.2500 ####[facility] [address] [place], [address] Hemoglobin (Bld) [Mass/Vol] 9.9 g/dL Low 13.0-16. 5 [facility] Comment on above: Performed By: #### L 100.0100, L500.2500 ####[facility] [address] [place], [address] IG% 0.800 Normal 0.0-0.9 [facility] Comment on above: Result Comment: IG% - Immature Granulocytes (promyelocytes, myelocytes andmetamyelocytes) > 1% indicates that a LEFT SHIFT is Present. Performed By: #### L 100.0100, L500.2500 ####[facility] [address] [place], [address] Lymphocytes/100 WBC (Bld) 10.1 % Low 19-41 [facility] Comment on above: Performed By: #### L 100.0100, L500.2500 ####[facility] [address] [place], [address] MCH (RBC) [Entitic mass] 27.9 pg Normal 27.0-32.0 [facility] Comment on above: Performed By: #### L 100.0100, L500.2500 ####[facility] [address] [place], [address] MCHC (RBC) [Mass/Vol] 32.5 g/dL Normal 32-36 [facility] Comment on above: Performed By: #### L 100.0100, L500.2500 ####[facility] [address] [place], [address] MCV (RBC) [Entitic vol] 85.9 fL Normal 80-94 [facility] Comment on above: Performed By: #### L 100.0100, L500.2500 ####[facility] [address] [place], [address] Monocytes/100 WBC (Bld) 8.6 % Normal 0-10 [facility] Comment on above: Performed By: #### L 100.0100, L500.2500 ####[facility] [address] [place], [address] Neutrophils/100 WBC (Bld) 74.2 % High 47-70 [facility] Comment on above: Performed By: #### L 100.0100, L500.2500 ####[facility] [address] [place], [address] Nucleated RBC (Bld) [#/Vol] 0 10*3/uL Normal 0-5 [facility] Comment on above: Performed By: #### L 100.0100, L500.2500 ####[facility] [address] [place], [address] Platelet mean volume (Bld) [Entitic vol] 9.2 fL Normal 6.2-12.0 [facility] Comment on above: Performed By: #### L 100.0100, L500.2500 ####[facility] [address] [place], [address] Platelets (Bld) [#/Vol] 262 10*3/uL Normal 150-450 [facility] Comment on above: Performed By: #### L 100.0100, L500.2500 ####[facility] [address] [place], [address] RBC (Bld) [#/Vol] 3.55 10*6/uL Low 4.6-6.2 [facility] Comment on above: Performed By: #### L 100.0100, L500.2500 ####[facility] [address] [place], [address] RDW SD 42.9 fl Normal 35.1-43.9 [facility] Comment on above: Performed By: #### L 100.0100, L500.2500 ####[facility] [address] [place], [address] WBC (Bld) [#/Vol] 9.9 10*3/uL Normal 4.4-11.0 [facility] Comment on above: Performed By: #### L 100.0100, L500.2500 ####[facility] [address] [place], [address] Gram Stainon 02-06-2025 GS UNK UNK Bone 5th left Metatarsal toe Gram Stain No organisms seen 2+ White Blood Cells Normal [facility] Comment on above: Performed By: #### M 100.4001, M100.3000, M100.2000 ####[facility] [address] [place], [address] GS UNK UNK Clearance Fragment left 5th metatarsal toe Gram Stain No organisms seen Normal [facility] Comment on above: Performed By: #### M 100.2000, M100.3000, M100.4001 ####[facility] [address] [place], [address] Vancomycin, Random Levelon 0 02-06-2025 VANCO, RANDOM 21.4 ug/mL High 0.0-15.0 [facility] Comment on above: Result Comment: VANC OMYCIN STANDARD DRUG THERAPY: CRITICAL VALUE IS > 15.0 mg/LVANCOMYCIN HIGH INTENSITY THERAPY: CRITICAL VALUE IS > 20.0 mg/LPLEASE CONTACT PHARMACY SERVICES (#5037) FOR INTERPRETATIONOF RESULTS. THIS RESULT DOES NOT REPRESENT A PEAK OR TROUGHLEVEL FOR THIS DRUG. Performed By: #### L 501.8850 ####[facility] [address] [place], [address] Vancomycin, Trough Levelon 0 02-06-2025 VANCO, TROUGH 25.9 ug/mL High 5.0-15.0 [facility] Comment on above: Order Comment: Comme nts: Trough to be drawn 30 mins prior to scheduled [id number] Result Comment: Jalen mmended goal trough ranges [...] therapy recommended for serious lifethreatening infections include:- Ycuxoaftra-Wukuenamhhxj-Uwoqkvlqc (Ventilator/Healtcare Associated)-SepsisPLEASE CONTACT PHARMACY SERVICES (#7811) FOR INTERPRETATIONOF RESULTS. Performed By: #### L 501.8820 ####[facility] [address] [place], [address] Wound Cultureon 02-06-2025 WC UNK UNK Clearance Fragment left 5th metatarsal toe No growth aerobically. Normal [facility] Comment on above: Performed By: #### M 100.2000, M100.3000, M100.4001 ####[facility] [address] [place], [address] Anaerobic cultureOrdered By: Kee Mejia on 02-05-2025 Bacteria identified Anaer cx Nom (Unsp spec) No anaerobic bacteria isolated. [facility] Bacteria identified Anaer cx Nom (Unsp spec) No growth in 5 days. [facility] Basic Metabolic Profile (BMP )on 02-05-2025 BUN/CRE 22.6 RATIO High 10-20 [facility] Comment on above: Performed By: #### L 100.0100, L500.2500 ####[facility] [address] [place], [address] Calcium [Mass/Vol] 8.8 mg/dL Normal 7.6-11.0 [facility] Comment on above: Performed By: #### L 100.0100, L500.2500 ####[facility] [address] [place], [address] Chloride [Moles/Vol] 110 mmol/L High 98-108 [facility] Comment on above: Performed By: #### L 100.0100, L500.2500 ####[facility] [address] [place], [address] CO2 [Moles/Vol] 20.0 mmol/L Low 21.0-32.0 [facility] Comment on above: Performed By: #### L 100.0100, L500.2500 ####[facility] [address] [place], [address] Creatinine [Mass/Vol] 1.81 mg/dL High 0.70-1.20 [facility] Comment on above: Performed By: #### L 100.0100, L500.2500 ####[facility] [address] [place], [address] ECRCL 45.33 ml/min Low 50-250 [facility] Comment on above: Performed By: #### L 100.0100, L500.2500 ####[facility] [address] [place], [address] GAP 12 Normal 5-15 [facility] Comment on above: Performed By: #### L 100.0100, L500.2500 ####[facility] [address] [place], [address] GFR/1.73 sq M.predicted among non-blacks MDRD (S/P/Bld) [Vol rate/Area] 38 mL/min/{1.73_m2} Low >60 [facility] Comment on above: Result Comment: mL/m in/1.73m2 CKD-EPI Creatinine Equation (2020) Performed By: #### L 100.0100, L500.2500 ####[facility] [address] [place], [address] Glucose [Mass/Vol] 166 mg/dL High 70-99 [facility] Comment on above: Performed By: #### L 100.0100, L500.2500 ####[facility] [address] [place], [address] Potassium [Moles/Vol] 3.8 mmol/L Normal 3.3-5.1 [facility] Comment on above: Performed By: #### L 100.0100, L500.2500 ####[facility] [address] [place], [address] Sodium [Moles/Vol] 141 mmol/L Normal 133-145 [facility] Comment on above: Performed By: #### L 100.0100, L500.2500 ####[facility] [address] [place], [address] Urea nitrogen [Mass/Vol] 41 mg/dL High 4-19 [facility] Comment on above: Performed By: #### L 100.0100, L500.2500 ####[facility] [address] [place], [address] Bedside Glucoseon 02-05-2025 FINGERSTICK GLU 168 mg/dL High 74-106 [facility] Comment on above: Result Comment: JAZ GEMENT OF PATIENT CARE PER NURSING PROTOCOL Performed By: #### L 501.080 ####[facility] [address] [place], [address] FINGERSTICK GLU 152 mg/dL High 74-106 [facility] Comment on above: Result Comment: JAZ GEMENT OF PATIENT CARE PER NURSING PROTOCOL Performed By: #### L 501.080 ####[facility] [address] [place], [address] FINGERSTICK GLU 153 mg/dL High 74-106 [facility] Comment on above: Result Comment: JAZ GEMENT OF PATIENT CARE PER NURSING PROTOCOL Performed By: #### L 501.080 ####[facility] [address] [place], [address] FINGERSTICK GLU 159 mg/dL High 74-106 [facility] Comment on above: Result Comment: JAZ GEMENT OF PATIENT CARE PER NURSING PROTOCOL Performed By: #### L 501.080 ####[facility] [address] [place], [address] FINGERSTICK GLU 167 mg/dL High 74-106 [facility] Comment on above: Result Comment: JAZ GEMENT OF PATIENT CARE PER NURSING PROTOCOL Performed By: #### L 501.080 ####[facility] [address] [place], [address] CBC W/Diff, Automatedon 07-2 Absolute Lymph 1.00 X10 3/uL Normal 0.83-4.51 [facility] Comment on above: Performed By: #### L 100.0100, L500.2500 ####[facility] [address] [place], [address] Absolute Neut 8.2 X10 3/uL High 2.0-7.7 [facility] Comment on above: Performed By: #### L 100.0100, L500.2500 ####[facility] [address] [place], [address] Basophils/100 WBC (Bld) 0.2 % Normal 0-1 [facility] Comment on above: Performed By: #### L 100.0100, L500.2500 ####[facility] [address] [place], [address] Eosinophils/100 WBC (Bld) 5.2 % High 0-5 [facility] Comment on above: Performed By: #### L 100.0100, L500.2500 ####[facility] [address] [place], [address] Erythrocyte distribution width (RBC) [Ratio] 13.7 % Normal 11.6-14.6 [facility] Comment on above: Performed By: #### L 100.0100, L500.2500 ####[facility] [address] [place], [address] Hematocrit (Bld) [Volume fraction] 30.2 % Low 40-54 [facility] Comment on above: Performed By: #### L 100.0100, L500.2500 ####[facility] [address] [place], [address] Hemoglobin (Bld) [Mass/Vol] 9.7 g/dL Low 13.0-16. 5 [facility] Comment on above: Performed By: #### L 100.0100, L500.2500 ####[facility] [address] [place], [address] IG% 0.800 Normal 0.0-0.9 [facility] Comment on above: Result Comment: IG% - Immature Granulocytes (promyelocytes, myelocytes andmetamyelocytes) > 1% indicates that a LEFT SHIFT is Present. Performed By: #### L 100.0100, L500.2500 ####[facility] [address] [place], [address] Lymphocytes/100 WBC (Bld) 9.4 % Low 19-41 [facility] Comment on above: Performed By: #### L 100.0100, L500.2500 ####[facility] [address] [place], [address] MCH (RBC) [Entitic mass] 27.6 pg Normal 27.0-32.0 [facility] Comment on above: Performed By: #### L 100.0100, L500.2500 ####[facility] [address] [place], [address] MCHC (RBC) [Mass/Vol] 32.1 g/dL Normal 32-36 [facility] Comment on above: Performed By: #### L 100.0100, L500.2500 ####[facility] [address] [place], [address] MCV (RBC) [Entitic vol] 85.8 fL Normal 80-94 [facility] Comment on above: Performed By: #### L 100.0100, L500.2500 ####[facility] [address] [place], [address] Monocytes/100 WBC (Bld) 8.0 % Normal 0-10 [facility] Comment on above: Performed By: #### L 100.0100, L500.2500 ####[facility] [address] [place], [address] Neutrophils/100 WBC (Bld) 76.4 % High 47-70 [facility] Comment on above: Performed By: #### L 100.0100, L500.2500 ####[facility] [address] [place], [address] Nucleated RBC (Bld) [#/Vol] 0 10*3/uL Normal 0-5 [facility] Comment on above: Performed By: #### L 100.0100, L500.2500 ####[facility] [address] [place], [address] Platelet mean volume (Bld) [Entitic vol] 9.2 fL Normal 6.2-12.0 [facility] Comment on above: Performed By: #### L 100.0100, L500.2500 ####[facility] [address] [place], [address] Platelets (Bld) [#/Vol] 232 10*3/uL Normal 150-450 [facility] Comment on above: Performed By: #### L 100.0100, L500.2500 ####[facility] [address] [place], [address] RBC (Bld) [#/Vol] 3.52 10*6/uL Low 4.6-6.2 [facility] Comment on above: Performed By: #### L 100.0100, L500.2500 ####[facility] [address] [place], [address] RDW SD 43.1 fl Normal 35.1-43.9 [facility] Comment on above: Performed By: #### L 100.0100, L500.2500 ####[facility] [address] [place], [address] WBC (Bld) [#/Vol] 10.7 10*3/uL Normal 4.4-11.0 [facility] Comment on above: Performed By: #### L 100.0100, L500.2500 ####[facility] [address] [place], [address] Decalcification bone/plaqueo n 02-05-2025 Decalcification bone/plaque Normal [facility] Comment on above: Performed By: #### P DEC ####[facility] [address] [place], [address] Foot min 3 Viewson 07-25-202 5 Foot min 3 Views Normal [facility] Gram stainOrdered By: Yeni Mejia on 02-05-2025 Microscopic observation Gram stain Nom (Unsp spec) [facility] M8200.1000on 02-05-2025 M8200.1000 Normal Reference Range = Negative MRSA DNA Nose Ql ANGELY+probe GeneXpert Instrument, PCR method MRSA PCR MRSA NEGATIVE Normal [facility] Comment on above: Performed By: #### M 8200.1000 ####[facility] [address] [facility] [address] MR/POSTOP.ANEon 02-05-2025 MR/POSTOP.ANE Normal [facility] Magnetic resonance imaging r eportOrdered By: Jay Barrow on 02-05-2025 Study report [facility] Nasal methicillin resistant Staphylococcus aureus (MRSA) DNA detection by PCROrdered By: Karen Aly on 02-05-2025 MRSA DNA ANGELY+probe Ql (Nose) [facility] Operative Reporton Operative Report Normal [facility] Routine wound cultureOrdered By: Kee Mejia on 02-05-2025 Microbial culture, routine Meth. resista nt Staph. aureus Abnormal [facility] Basic Metabolic Profile (BMP )on 02-04-2025 BUN/CRE 17.8 RATIO Normal 10-20 [facility] Comment on above: Performed By: #### L 100.0100, L500.2500 ####[facility] [address] [place], [address] Calcium [Mass/Vol] 8.3 mg/dL Normal 7.6-11.0 [facility] Comment on above: Performed By: #### L 100.0100, L500.2500 ####[facility] [address] [place], [address] Chloride [Moles/Vol] 110 mmol/L High 98-108 [facility] Comment on above: Performed By: #### L 100.0100, L500.2500 ####[facility] [address] [place], [address] CO2 [Moles/Vol] 23.0 mmol/L Normal 21.0-32.0 [facility] Comment on above: Performed By: #### L 100.0100, L500.2500 ####[facility] [address] [place], [address] Creatinine [Mass/Vol] 1.49 mg/dL High 0.70-1.20 [facility] Comment on above: Performed By: #### L 100.0100, L500.2500 ####[facility] [address] [place], [address] ECRCL 55.04 ml/min Normal 50-250 [facility] Comment on above: Performed By: #### L 100.0100, L500.2500 ####[facility] [address] [place], [address] GAP 9 Normal 5-15 [facility] Comment on above: Performed By: #### L 100.0100, L500.2500 ####[facility] [address] [place], [address] GFR/1.73 sq M.predicted among non-blacks MDRD (S/P/Bld) [Vol rate/Area] 48 mL/min/{1.73_m2} Low >60 [facility] Comment on above: Result Comment: mL/m in/1.73m2 CKD-EPI Creatinine Equation (2020) Performed By: #### L 100.0100, L500.2500 ####[facility] [address] [place], [address] Glucose [Mass/Vol] 170 mg/dL High 70-99 [facility] Comment on above: Performed By: #### L 100.0100, L500.2500 ####[facility] [address] [place], [address] Potassium [Moles/Vol] 3.9 mmol/L Normal 3.3-5.1 [facility] Comment on above: Performed By: #### L 100.0100, L500.2500 ####[facility] [address] [place], [address] Sodium [Moles/Vol] 142 mmol/L Normal 133-145 [facility] Comment on above: Performed By: #### L 100.0100, L500.2500 ####[facility] [address] [place], [address] Urea nitrogen [Mass/Vol] 27 mg/dL High 4-19 [facility] Comment on above: Performed By: #### L 100.0100, L500.2500 ####[facility] [address] [place], [address] Bedside Glucoseon 02-04-2025 FINGERSTICK GLU 176 mg/dL High 74-106 [facility] Comment on above: Result Comment: JAZ GEMENT OF PATIENT CARE PER NURSING PROTOCOL Performed By: #### L 501.080 ####[facility] [address] [place], [address] FINGERSTICK GLU 143 mg/dL High 74-106 [facility] Comment on above: Result Comment: JAZ GEMENT OF PATIENT CARE PER NURSING PROTOCOL Performed By: #### L 501.080 ####[facility] [address] [place], [address] FINGERSTICK GLU 171 mg/dL High 74-106 [facility] Comment on above: Result Comment: JAZ GEMENT OF PATIENT CARE PER NURSING PROTOCOL Performed By: #### L 501.080 ####[facility] [address] [place], [address] FINGERSTICK GLU 169 mg/dL High 74-106 [facility] Comment on above: Result Comment: JAZ GEMENT OF PATIENT CARE PER NURSING PROTOCOL Performed By: #### L 501.080 ####[facility] [address] [place], [address] CBC W/Diff, Automatedon 07-2 -2024 Absolute Lymph 0.61 X10 3/uL Low 0.83-4.51 [facility] Comment on above: Performed By: #### L 100.0100, L500.2500 ####[facility] [address] [place], [address] Absolute Neut 9.2 X10 3/uL High 2.0-7.7 [facility] Comment on above: Performed By: #### L 100.0100, L500.2500 ####[facility] [address] [place], [address] Basophils/100 WBC (Bld) 0.3 % Normal 0-1 [facility] Comment on above: Performed By: #### L 100.0100, L500.2500 ####[facility] [address] [place], [address] Eosinophils/100 WBC (Bld) 4.1 % Normal 0-5 [facility] Comment on above: Performed By: #### L 100.0100, L500.2500 ####[facility] [address] [place], [address] Erythrocyte distribution width (RBC) [Ratio] 13.7 % Normal 11.6-14.6 [facility] Comment on above: Performed By: #### L 100.0100, L500.2500 ####[facility] [address] [place], [address] Hematocrit (Bld) [Volume fraction] 31.0 % Low 40-54 [facility] Comment on above: Performed By: #### L 100.0100, L500.2500 ####[facility] [address] [place], [address] Hemoglobin (Bld) [Mass/Vol] 10.1 g/dL Low 13.0-16. 5 [facility] Comment on above: Performed By: #### L 100.0100, L500.2500 ####[facility] [address] [place], [address] IG% 0.900 Normal 0.0-0.9 [facility] Comment on above: Result Comment: IG% - Immature Granulocytes (promyelocytes, myelocytes andmetamyelocytes) > 1% indicates that a LEFT SHIFT is Present. Performed By: #### L 100.0100, L500.2500 ####[facility] [address] [place], [address] Lymphocytes/100 WBC (Bld) 5.3 % Low 19-41 [facility] Comment on above: Performed By: #### L 100.0100, L500.2500 ####[facility] [address] [place], [address] MCH (RBC) [Entitic mass] 27.8 pg Normal 27.0-32.0 [facility] Comment on above: Performed By: #### L 100.0100, L500.2500 ####[facility] [address] [place], [address] MCHC (RBC) [Mass/Vol] 32.6 g/dL Normal 32-36 [facility] Comment on above: Performed By: #### L 100.0100, L500.2500 ####[facility] [address] [place], [address] MCV (RBC) [Entitic vol] 85.4 fL Normal 80-94 [facility] Comment on above: Performed By: #### L 100.0100, L500.2500 ####[facility] [address] [place], [address] Monocytes/100 WBC (Bld) 9.4 % Normal 0-10 [facility] Comment on above: Performed By: #### L 100.0100, L500.2500 ####[facility] [address] [place], [address] Neutrophils/100 WBC (Bld) 80.0 % High 47-70 [facility] Comment on above: Performed By: #### L 100.0100, L500.2500 ####[facility] [address] [place], [address] Nucleated RBC (Bld) [#/Vol] 0 10*3/uL Normal 0-5 [facility] Comment on above: Performed By: #### L 100.0100, L500.2500 ####[facility] [address] [place], [address] Platelet mean volume (Bld) [Entitic vol] 9.3 fL Normal 6.2-12.0 [facility] Comment on above: Performed By: #### L 100.0100, L500.2500 ####[facility] [address] [place], [address] Platelets (Bld) [#/Vol] 193 10*3/uL Normal 150-450 [facility] Comment on above: Performed By: #### L 100.0100, L500.2500 ####[facility] [address] [place], [address] RBC (Bld) [#/Vol] 3.63 10*6/uL Low 4.6-6.2 [facility] Comment on above: Performed By: #### L 100.0100, L500.2500 ####[facility] [address] [place], [address] RDW SD 43.2 fl Normal 35.1-43.9 [facility] Comment on above: Performed By: #### L 100.0100, L500.2500 ####[facility] [address] [place], [address] WBC (Bld) [#/Vol] 11.4 10*3/uL High 4.4-11.0 [facility] Comment on above: Performed By: #### L 100.0100, L500.2500 ####[facility] [address] [place], [place], [address] Consultation - Surgicalon Consultation - Surgical Normal [facility] Gram Stainon 02-04-2025 GS ONLY AEROBIC SWAB WA S SENT DRUGS WITH ANAROBES MAYBE INHIBITED. Gram Stain 4+ Gram positive cocci Rare Epithelial cells 4+ Gram positive rods Normal [facility] Comment on above: Performed By: #### M 100.4001, L8200.1075, M100.3000, M100.1999 ####[facility] [address] [place], [place], [id number] Lower Ext/No Jt/w/oon 2024 Lower Ext/No Jt/w/o Normal [facility] MRSA Wound DNA by PCRon 01-13 MRSA DNA ASSAY Positive Abnormal Negative [facility] Comment on above: Order Comment: Wound left foot Result Comment: [facility]25213 Edwar Mitchell.REPORT READ BACK BY SAME. AMENDED REPORT 02/04/25213 MRSA RESULT previously reported as: POSITIVE H Performed By: #### M 100.4001, L8200.1075, M100.3000, M100.1999 ####[facility] [address] [place], [place], [address] Urine Cultureon 02-04-2025 URC Culture exhibits no growth. Normal [facility] Comment on above: Performed By: #### M 100.2200, L400.0001 ####[facility] [address] [place], [place], [address] Vancomycin, Random Levelon 0 02-04-2025 VANCO, RANDOM 17.8 ug/mL High 0.0-15.0 [facility] Comment on above: Result Comment: VANC OMYCIN STANDARD DRUG THERAPY: CRITICAL VALUE IS > 15.0 mg/LVANCOMYCIN HIGH INTENSITY THERAPY: CRITICAL VALUE IS > 20.0 mg/LPLEASE CONTACT PHARMACY SERVICES (#8984) FOR INTERPRETATIONOF RESULTS. THIS RESULT DOES NOT REPRESENT A PEAK OR TROUGHLEVEL FOR THIS DRUG. Performed By: #### L 501.8850 ####[facility] [address] [place], [place], [address] Vancomycin, Trough Levelon 0 02-04-2025 VANCO, TROUGH 21.4 ug/mL High 5.0-15.0 [facility] Comment on above: Order Comment: Comme nts: Trough to be drawn 30 mins prior to scheduled [id number] Result Comment: Jalen mmended goal trough ranges [...] therapy recommended for serious lifethreatening infections include:- Vsxmpmkfac-Puhwmnrpxklc-Nrxyrfmoj (Ventilator/Healtcare Associated)-SepsisPLEASE CONTACT PHARMACY SERVICES (#5950) FOR INTERPRETATIONOF RESULTS. Performed By: #### L 501.8820 ####[facility] [address] [place], [place], [address] Anaerobic cultureOrdered By: Kee Mejia on 02-03-2025 Bacteria identified Anaer cx Nom (Unsp spec) No anaerobic bacteria isolated. [facility] Arterial study reportOrdered By: Aneesh Ac on 02-03-2025 Noninvasive arteriosclerosis study report [facility] Work Phone: Bedside Glucoseon 02-03-2025 FINGERSTICK GLU 170 mg/dL High 74-106 [facility] Comment on above: Result Comment: JAZ GEMENT OF PATIENT CARE PER NURSING PROTOCOL Performed By: #### L 501.080 ####[facility] [address] [place], [address] FINGERSTICK GLU 154 mg/dL High [address] [place] [address] Comment on above: Result Comment: JAZ GEMENT OF PATIENT CARE PER NURSING PROTOCOL Performed By: #### L 501.080 ####[facility] [address] [place], [address] FINGERSTICK GLU 140 mg/dL High [address] [place] [address] Comment on above: Result Comment: JAZ GEMENT OF PATIENT CARE PER NURSING PROTOCOL Performed By: #### L 501.080 ####[facility] [address] [place], [address] FINGERSTICK GLU 148 mg/dL High [address] [place] [address] Comment on above: Result Comment: JAZ GEMENT OF PATIENT CARE PER NURSING PROTOCOL Performed By: #### L 501.080 ####[facility] [address] [place], [address] FINGERSTICK GLU 140 mg/dL High [address] [place] [address] Comment on above: Result Comment: JAZ GEMENT OF PATIENT CARE PER NURSING PROTOCOL Performed By: #### L 501.080 ####[facility] [address] [place], [address] Bilirubin, totalOrdered By: Karen Aly on 02-03-2025 Bilirubin [Mass/Vol] 0.61 mg/dL 0.00-1.30 [facility] CBC W/Diff, Automatedon 01-13 PLT EST ADEQUATE Normal ADEQ [facility] Comment on above: Performed By: #### L 501.6710, L101.9900, L500.4050, L100.0100, L501.5200, L501.9985 ####[facility] [address] [place], [address] CRPon 02-03-2025 C-REACTIVE PROT 138.00 mg/L High 0.0-3.0 [facility] Comment on above: Performed By: #### L 501.6710, L101.9900, L500.4050, L100.0100, L501.5200, L501.9985 ####[facility] [address] [place], [address] Comprehensive Metabolic [facility] 02-03-2025 Albumin [Mass/Vol] 2.9 g/dL Low 3.4-4.8 [facility] Comment on above: Performed By: #### L 501.6710, L101.9900, L500.4050, L100.0100, L501.5200, L501.9985 ####[facility] [address] [place], [address] ALK PHOS 106 U/L Normal 40-129 [facility] Comment on above: Performed By: #### L 501.6710, L101.9900, L500.4050, L100.0100, L501.5200, L501.9985 ####[facility] [address] [place], [address] ALT [Catalytic activity/Vol] 9 U/L Normal <=46 [facility] Comment on above: Performed By: #### L 501.6710, L101.9900, L500.4050, L100.0100, L501.5200, L501.9985 ####[facility] [address] [place], [address] AST [Catalytic activity/Vol] 15 U/L Normal <=37 [facility] Comment on above: Result Comment: Hemo lysis present, Results??could be affected.?? Performed By: #### L 501.6710, L101.9900, L500.4050, L100.0100, L501.5200, L501.9985 ####[facility] [address] [place], [address] Bilirubin [Mass/Vol] 0.61 mg/dL Normal 0.00-1.30 [facility] Comment on above: Performed By: #### L 501.6710, L101.9900, L500.4050, L100.0100, L501.5200, L501.9985 ####[facility] [address] [place], [address] BUN/CRE 16.9 RATIO Normal 10-20 [facility] Comment on above: Performed By: #### L 501.6710, L101.9900, L500.4050, L100.0100, L501.5200, L501.9985 ####[facility] [address] [place], [address] Calcium [Mass/Vol] 8.3 mg/dL Normal 7.6-11.0 [facility] Comment on above: Performed By: #### L 501.6710, L101.9900, L500.4050, L100.0100, L501.5200, L501.9985 ####[facility] [address] [place], [address] Chloride [Moles/Vol] 107 mmol/L Normal 98-108 [facility] Comment on above: Performed By: #### L 501.6710, L101.9900, L500.4050, L100.0100, L501.5200, L501.9985 ####[facility] [address] [place], [address] CO2 [Moles/Vol] 18.1 mmol/L Low 21.0-32.0 [facility] Comment on above: Performed By: #### L 501.6710, L101.9900, L500.4050, L100.0100, L501.5200, L501.9985 ####[facility] [address] [place], [address] Creatinine [Mass/Vol] 1.10 mg/dL Normal 0.70-1.20 [facility] Comment on above: Performed By: #### L 501.6710, L101.9900, L500.4050, L100.0100, L501.5200, L501.9985 ####[facility] [address] [place], [address] GAP 14 Normal 5-15 [facility] Comment on above: Performed By: #### L 501.6710, L101.9900, L500.4050, L100.0100, L501.5200, L501.9985 ####[facility] [address] [place], [address] GFR/1.73 sq M.predicted among non-blacks MDRD (S/P/Bld) [Vol rate/Area] 69 mL/min/{1.73_m2} Normal >60 [facility] Comment on above: Result Comment: mL/m in/1.73m2 CKD-EPI Creatinine Equation (2020) Performed By: #### L 501.6710, L101.9900, L500.4050, L100.0100, L501.5200, L501.9985 ####[facility] [address] [place], [address] Glucose [Mass/Vol] 154 mg/dL High 70-99 [facility] Comment on above: Performed By: #### L 501.6710, L101.9900, L500.4050, L100.0100, L501.5200, L501.9985 ####[facility] [address] [place], [address] Potassium [Moles/Vol] 4.2 mmol/L Normal 3.3-5.1 [facility] Comment on above: Result Comment: Hemo lysis present, Results??could be affected.?? Performed By: #### L 501.6710, L101.9900, L500.4050, L100.0100, L501.5200, L501.9985 ####[facility] [address] [place], [address] Sodium [Moles/Vol] 139 mmol/L Normal 133-145 [facility] Comment on above: Performed By: #### L 501.6710, L101.9900, L500.4050, L100.0100, L501.5200, L501.9985 ####[facility] [address] [place], [place], [address] T PROT 5.6 g/dL Low 5.9-8.4 [facility] Comment on above: Performed By: #### L 501.6710, L101.9900, L500.4050, L100.0100, L501.5200, L501.9985 ####[facility] [address] [place], [place], [address] Urea nitrogen [Mass/Vol] 19 mg/dL Normal 4-19 [facility] Comment on above: Performed By: #### L 501.6710, L101.9900, L500.4050, L100.0100, L501.5200, L501.9985 ####[facility] [address] [place], [place], [address] Electrocardiogram reportOrde red By: Tuan Thakkar on 02-03-2025 EKG study [facility] Other Phone: Erythrocyte Sed Rateon 02-03 SED RATE 14 mm/hr Normal 0-20 [facility] Comment on above: Performed By: #### L 501.6710, L101.9900, L500.4050, L100.0100, L501.5200, L501.9985 ####[facility] [address] [place], [place], [address] Erythrocyte sedimentation ra teOrdered By: Karen Aly on 02-03-2025 ESR (Bld) [Velocity] 14 mm/h 0-20 [facility] Gram stainOrdered By: Yeni Mejia on 02-03-2025 Microscopic observation Gram stain Nom (Unsp spec) [facility] Hemoglobin A1con 02-03-2025 HbA1c (Bld) [Mass fraction] 6.7 % High <=5.6 [facility] Comment on above: Result Comment: Norm al < 5.7 % Prediabetic 5.7 - 6.4 % Diabetic >or= 6.5 % Please note range changes. Performed By: #### L 501.6710, L101.9900, L500.4050, L100.0100, L501.5200, L501.9985 ####[facility] [address] [place], [place], [address] Hemoglobin A1c percentageOrd ered By: Karen Aly on 02-03-2025 HbA1c (Bld) [Mass fraction] 6.7 % High <5.7 [facility] Lactic Acidon 02-03-2025 Lactate [Moles/Vol] 1.6 mmol/L Normal 0.0-2.0 [facility] Comment on above: Performed By: #### L 503.6005 ####[facility] [address] [place], [place], [address] Lactic acid measurementOrder ed By: Nicholas Galarza on 02-03-2025 Lactate [Moles/Vol] 1.6 mmol/L 0.0-2.0 [facility] Legionella Antigen Urineon 0 02-03-2025 LEGU URINE, CLEAN CATCH Legionella Ag, Urine Negative (See interpretation below) Normal [facility] Comment on above: Performed By: #### M 300.4810, M300.4500 ####[facility] [address] [place], [address] Lower Ext Art Exam w/o Exerc jimmy 02-03-2025 Lower Ext Art Exam w/o Exercis Normal [facility] MRSA Wound DNA by PCRon 01-13 MRSA DNA ASSAY Normal Negative [facility] Comment on above: Order Comment: left foot Result Comment: Canc elled via OM: Duplicate Order Performed By: #### L 8200.1075 ####[facility] [address] [place], [address] PROBE CHECK Normal [facility] Comment on above: Order Comment: left foot Result Comment: Canc elled via OM: Duplicate Order Performed By: #### L 8200.1075 ####[facility] [address] [place], [address] SA DNA ASSAY Normal Negative [facility] Comment on above: Order Comment: left foot Result Comment: Canc elled via OM: Duplicate Order Performed By: #### L 8200.1075 ####[facility] [address] [place], [address] SPC Normal [facility] Comment on above: Order Comment: left foot Result Comment: Canc elled via OM: Duplicate Order Performed By: #### L 8200.1075 ####[facility] [address] [place], [address] Magnesiumon 02-03-2025 Magnesium [Mass/Vol] 1.7 mg/dL Normal 1.5-2.2 [facility] Comment on above: Performed By: #### L 501.6710, L101.9900, L500.4050, L100.0100, L501.5200, L501.9985 ####[facility] [address] [place], [address] Magnesium measurement (mass/ volume)Ordered By: Karen Aly on 02-03-2025 Magnesium (Unsp spec) [Mass/Vol] 1.7 mg/dL 1.5-2.2 [facility] Platelet estimateOrdered By: Karen Aly on 02-03-2025 Platelets LM Ql (Bld) ADEQUATE ADEQ [facility] RESPIRATORY PANEL MOLECULARo n 02-03-2025 RP PANEL Normal [facility] Comment on above: Performed By: #### M 100.638 ####[facility] [address] [place], [address] Respiratory pathogens detect ion panel by molecular detection methodOrdered By: Karen Aly on 02-03-2025 Respiratory pathogens DNA and RNA panel ANGELY+probe (Resp) [facility] Routine wound cultureOrdered By: Kee Mejia on 02-03-2025 Microbial culture, routine Meth. resista nt Staph. aureus Abnormal [facility] Microbial culture, routine Enterobacter cloacae complex Abnormal [facility] Serum globulin measurementOr dered By: Karen Aly on 02-03-2025 Globulin (S) [Mass/Vol] 2.7 g/dL 2.2-4.2 [facility] Serum or plasma C reactive p rotein measurement (mass/volume)Ordered By: Karen Aly on 02-03-2025 CRP [Mass/Vol] 138.00 mg/L High 0.0-3.0 [facility] Serum or plasma albumin antoine urement (mass/volume)Ordered By: Karen Aly on 02-03-2025 Albumin [Mass/Vol] 2.9 g/dL Low 3.4-4.8 [facility] Serum or plasma albumin/glob ulin mass ratioOrdered By: Karen Aly on 02-03-2025 Albumin/Globulin [Mass ratio] 1.1 {ratio} 0.9-2.4 [facility] Serum or plasma alkaline marilin sphatase measurementOrdered By: Karen Aly on 02-03-2025 ALP [Catalytic activity/Vol] 106 U/L 40-129 [facility] Staphylococcus aureus DNA de tection by probe and target amplification methodOrdered By: Kee Mejia on 02-03-2025 S. aureus DNA ANGELY+probe Ql (Unsp spec) Positive High Negative [facility] Strep pneumoniae Antig(UR,CS F)on 02-03-2025 STPAG Normal [facility] Comment on above: Performed By: #### M 300.2070, C669.6919 ####[facility] [address] [place], [place], [id number] Total proteinOrdered By: Aut elena Aly on 02-03-2025 Protein [Mass/Vol] 5.6 g/dL Low 5.9-8.4 [facility] 12 Lead EKGon 07-22-2025 12 Lead EKG Normal [facility] Absolute lymphocyte countOrd ered By: Nicholas Galarza on 02-02-2025 Lymphocytes Auto (Unsp spec) [#/Vol] 0.50 10*3/uL Low 0.83-4.51 [facility] Absolute neutrophil countOrd ered By: Nicholas Galarza on 02-02-2025 Neutrophils (Bld) [#/Vol] 12.0 10*3/uL High 2.0-7.7 [facility] Activated partial thrombopla stin time (aPTT) in platelet poor plasma by coagulation aOrdered By: Nicholas Galarza on 02-02-2025 aPTT Coag (PPP) [Time] 34.0 s 24.1-36.2 [facility] Anion gap in Serum or Plasma Ordered By: Nicholas Galarza on 02-02-2025 Anion gap [Moles/Vol] 14 mmol/L 5-15 [facility] Automated lymphocyte count a s percentage of total leukocytesOrdered By: Nicholas Galarza on 02-02-2025 Lymphocytes/100 WBC Auto (Unsp spec) 3.6 % Low 19-41 [facility] BUN/creatinine ratioOrdered By: Nicholas Galarza on 02-02-2025 Urea nitrogen/Creatinine [Mass ratio] 17.0 mg/mg 10-20 [facility] Basophil percentageOrdered B y: Nicholas Galarza on 02-02-2025 Basophils/100 WBC (Bld) 0.2 % 0-1 [facility] Bilirubin Test strip Ql (U)O rdered By: Nicholas Galarza on 02-02-2025 Bilirubin Ql (U) Negative Negative [facility] Bilirubin, totalOrdered By: Nicholas Galarza on 02-02-2025 Bilirubin [Mass/Vol] 0.50 mg/dL 0.00-1.30 [facility] Blood cultureOrdered By: Hermes Galarza on 02-02-2025 Bacteria identified Cx Nom (Bld) No growth in 5 days. [facility] Bacteria identified Cx Nom (Bld) No growth in 5 days. [facility] Brain/Head without Contrasto n 02-02-2025 Brain/Head without Contrast Normal [facility] CBC W/Diff, Automatedon 01-13 Absolute Lymph 0.50 X10 3/uL Low 0.83-4.51 [facility] Comment on above: Performed By: #### L 300.3900, L300.4310, L503.6005, M200.1000, L100.0100, L500.4050 ####[facility] [address] [place], [address] Absolute Neut 12.0 X10 3/uL High 2.0-7.7 [facility] Comment on above: Performed By: #### L 300.3900, L300.4310, L503.6005, M200.1000, L100.0100, L500.4050 ####[facility] [address] [place], [address] Basophils/100 WBC (Bld) 0.2 % Normal 0-1 [facility] Comment on above: Performed By: #### L 300.3900, L300.4310, L503.6005, M200.1000, L100.0100, L500.4050 ####[facility] [address] [place], [address] Eosinophils/100 WBC (Bld) 0.6 % Normal 0-5 [facility] Comment on above: Performed By: #### L 300.3900, L300.4310, L503.6005, M200.1000, L100.0100, L500.4050 ####[facility] [address] [place], [address] Erythrocyte distribution width (RBC) [Ratio] 13.6 % Normal 11.6-14.6 [facility] Comment on above: Performed By: #### L 300.3900, L300.4310, L503.6005, M200.1000, L100.0100, L500.4050 ####[facility] [address] [place], [address] Hematocrit (Bld) [Volume fraction] 33.5 % Low 40-54 [facility] Comment on above: Performed By: #### L 300.3900, L300.4310, L503.6005, M200.1000, L100.0100, L500.4050 ####[facility] [address] [place], [address] Hemoglobin (Bld) [Mass/Vol] 10.9 g/dL Low 13.0-16. 5 [facility] Comment on above: Performed By: #### L 300.3900, L300.4310, L503.6005, M200.1000, L100.0100, L500.4050 ####[facility] [address] [place], [address] IG% 0.700 Normal 0.0-0.9 [facility] Comment on above: Result Comment: IG% - Immature Granulocytes (promyelocytes, myelocytes andmetamyelocytes) > 1% indicates that a LEFT SHIFT is Present. Performed By: #### L 300.3900, L300.4310, L503.6005, M200.1000, L100.0100, L500.4050 ####[facility] [address] [place], [address] Lymphocytes/100 WBC (Bld) 3.6 % Low 19-41 [facility] Comment on above: Performed By: #### L 300.3900, L300.4310, L503.6005, M200.1000, L100.0100, L500.4050 ####[facility] [address] [place], [address] MCH (RBC) [Entitic mass] 27.7 pg Normal 27.0-32.0 [facility] Comment on above: Performed By: #### L 300.3900, L300.4310, L503.6005, M200.1000, L100.0100, L500.4050 ####[facility] [address] [place], [address] MCHC (RBC) [Mass/Vol] 32.5 g/dL Normal 32-36 [facility] Comment on above: Performed By: #### L 300.3900, L300.4310, L503.6005, M200.1000, L100.0100, L500.4050 ####[facility] [address] [place], [address] MCV (RBC) [Entitic vol] 85.0 fL Normal 80-94 [facility] Comment on above: Performed By: #### L 300.3900, L300.4310, L503.6005, M200.1000, L100.0100, L500.4050 ####[facility] [address] [place], [address] Monocytes/100 WBC (Bld) 8.7 % Normal 0-10 [facility] Comment on above: Performed By: #### L 300.3900, L300.4310, L503.6005, M200.1000, L100.0100, L500.4050 ####[facility] [address] [place], [address] Neutrophils/100 WBC (Bld) 86.2 % High 47-70 [facility] Comment on above: Performed By: #### L 300.3900, L300.4310, L503.6005, M200.1000, L100.0100, L500.4050 ####[facility] [address] [place], [address] Nucleated RBC (Bld) [#/Vol] 0 10*3/uL Normal 0-5 [facility] Comment on above: Performed By: #### L 300.3900, L300.4310, L503.6005, M200.1000, L100.0100, L500.4050 ####[facility] [address] [place], [address] Platelet mean volume (Bld) [Entitic vol] 9.4 fL Normal 6.2-12.0 [facility] Comment on above: Performed By: #### L 300.3900, L300.4310, L503.6005, M200.1000, L100.0100, L500.4050 ####[facility] [address] [place], [address] Platelets (Bld) [#/Vol] 203 10*3/uL Normal 150-450 [facility] Comment on above: Performed By: #### L 300.3900, L300.4310, L503.6005, M200.1000, L100.0100, L500.4050 ####[facility] [address] [place], [address] RBC (Bld) [#/Vol] 3.94 10*6/uL Low 4.6-6.2 [facility] Comment on above: Performed By: #### L 300.3900, L300.4310, L503.6005, M200.1000, L100.0100, L500.4050 ####[facility] [address] [place], [address] RDW SD 42.2 fl Normal 35.1-43.9 [facility] Comment on above: Performed By: #### L 300.3900, L300.4310, L503.6005, M200.1000, L100.0100, L500.4050 ####[facility] [address] [place], [address] WBC (Bld) [#/Vol] 13.9 10*3/uL High 4.4-11.0 [facility] Comment on above: Performed By: #### L 300.3900, L300.4310, L503.6005, M200.1000, L100.0100, L500.4050 ####[facility] [address] [place], [address] CRPon 02-02-2025 C-REACTIVE PROT 94.50 mg/L High 0.0-3.0 [facility] Comment on above: Order Comment: Comme nts: may add to ED labs Performed By: #### L 501.5200, L501.6710, L101.9900 ####[facility] [address] [place], [address] Carbon dioxide, total [Moles /volume] in Central venous bloodOrdered By: Nicholas Galarza on 02-02-2025 CO2 [Moles/Vol] 22.4 mmol/L 21.0-32.0 [facility] Chest 1 View (Portable)on Chest 1 View (Portable) Normal [facility] Chloride assayOrdered By: Jose Juan Galarza on 02-02-2025 Chloride [Moles/Vol] 104 mmol/L 98-108 [facility] Comprehensive Metabolic Prof ilon 02-02-2025 Albumin [Mass/Vol] 3.5 g/dL Normal 3.4-4.8 [facility] Comment on above: Performed By: #### L 300.3900, L300.4310, L503.6005, M200.1000, L100.0100, L500.4050 ####[facility] [address] [place], [address] Albumin/Globulin [Mass ratio] 1.5 {ratio} Normal 0.9-2.4 [facility] Comment on above: Performed By: #### L 300.3900, L300.4310, L503.6005, M200.1000, L100.0100, L500.4050 ####[facility] [address] [place], [address] ALK PHOS 115 U/L Normal 40-129 [facility] Comment on above: Performed By: #### L 300.3900, L300.4310, L503.6005, M200.1000, L100.0100, L500.4050 ####[facility] [address] [place], [address] ALT [Catalytic activity/Vol] 10 U/L Normal <=46 [facility] Comment on above: Performed By: #### L 300.3900, L300.4310, L503.6005, M200.1000, L100.0100, L500.4050 ####[facility] [address] [place], [address] AST [Catalytic activity/Vol] 15 U/L Normal <=37 [facility] Comment on above: Performed By: #### L 300.3900, L300.4310, L503.6005, M200.1000, L100.0100, L500.4050 ####[facility] [address] [place], [address] Bilirubin [Mass/Vol] 0.50 mg/dL Normal 0.00-1.30 [facility] Comment on above: Performed By: #### L 300.3900, L300.4310, L503.6005, M200.1000, L100.0100, L500.4050 ####[facility] [address] [place], [address] BUN/CRE 17.0 RATIO Normal 10-20 [facility] Comment on above: Performed By: #### L 300.3900, L300.4310, L503.6005, M200.1000, L100.0100, L500.4050 ####[facility] [address] [place], [address] Calcium [Mass/Vol] 8.7 mg/dL Normal 7.6-11.0 [facility] Comment on above: Performed By: #### L 300.3900, L300.4310, L503.6005, M200.1000, L100.0100, L500.4050 ####[facility] [address] [place], [address] Chloride [Moles/Vol] 104 mmol/L Normal 98-108 [facility] Comment on above: Performed By: #### L 300.3900, L300.4310, L503.6005, M200.1000, L100.0100, L500.4050 ####[facility] [address] [place], [address] CO2 [Moles/Vol] 22.4 mmol/L Normal 21.0-32.0 [facility] Comment on above: Performed By: #### L 300.3900, L300.4310, L503.6005, M200.1000, L100.0100, L500.4050 ####[facility] [address] [place], [address] Creatinine [Mass/Vol] 1.04 mg/dL Normal 0.70-1.20 [facility] Comment on above: Performed By: #### L 300.3900, L300.4310, L503.6005, M200.1000, L100.0100, L500.4050 ####[facility] [address] [place], [address] ECRCL 79.39 ml/min Normal 50-250 [facility] Comment on above: Performed By: #### L 300.3900, L300.4310, L503.6005, M200.1000, L100.0100, L500.4050 ####[facility] [address] [place], [address] GAP 14 Normal 5-15 [facility] Comment on above: Performed By: #### L 300.3900, L300.4310, L503.6005, M200.1000, L100.0100, L500.4050 ####[facility] [address] [place], [address] GFR/1.73 sq M.predicted among non-blacks MDRD (S/P/Bld) [Vol rate/Area] 74 mL/min/{1.73_m2} Normal >60 [facility] Comment on above: Result Comment: mL/m in/1.73m2 CKD-EPI Creatinine Equation (2020) Performed By: #### L 300.3900, L300.4310, L503.6005, M200.1000, L100.0100, L500.4050 ####[facility] [address] [place], [address] Globulin (S) [Mass/Vol] 2.3 g/dL Normal 2.2-4.2 [facility] Comment on above: Performed By: #### L 300.3900, L300.4310, L503.6005, M200.1000, L100.0100, L500.4050 ####[facility] [address] [place], [address] Glucose [Mass/Vol] 195 mg/dL High 70-99 [facility] Comment on above: Performed By: #### L 300.3900, L300.4310, L503.6005, M200.1000, L100.0100, L500.4050 ####[facility] [address] [place], [address] Potassium [Moles/Vol] 3.8 mmol/L Normal 3.3-5.1 [facility] Comment on above: Performed By: #### L 300.3900, L300.4310, L503.6005, M200.1000, L100.0100, L500.4050 ####[facility] [address] [place], [address] Sodium [Moles/Vol] 141 mmol/L Normal 133-145 [facility] Comment on above: Performed By: #### L 300.3900, L300.4310, L503.6005, M200.1000, L100.0100, L500.4050 ####[facility] [address] [place], [place], [id number] T PROT 5.8 g/dL Low 5.9-8.4 [facility] Comment on above: Performed By: #### L 300.3900, L300.4310, L503.6005, M200.1000, L100.0100, L500.4050 ####[facility] [address] [place], [address] Urea nitrogen [Mass/Vol] 18 mg/dL Normal 4-19 [facility] Comment on above: Performed By: #### L 300.3900, L300.4310, L503.6005, M200.1000, L100.0100, L500.4050 ####[facility] [address] [place], [place], [id number] Emergency Department Summary on 02-02-2025 Emergency Department Summary Normal [facility] Eosinophil percentageOrdered By: Nicholas Galarza on 02-02-2025 Eosinophils/100 WBC (Bld) 0.6 % 0-5 [facility] Erythrocyte Sed Rateon 02-02 SED RATE 23 mm/hr High 0-20 [facility] Comment on above: Performed By: #### L 501.5200, L501.6710, L101.9900 ####[facility] [address] [place], [place], [address] Erythrocyte distribution wid th ratioOrdered By: Nicholas Galarza on 02-02-2025 Erythrocyte distribution width (RBC) [Ratio] 13.6 % 11.6-14.6 [facility] Erythrocyte distribution wid th standard deviationOrdered By: Nicholas Galarza on 02-02-2025 Erythrocyte distribution width (RBC) [Ratio] 42.2 fl 35.1-43.9 [facility] Erythrocyte sedimentation ra teOrdered By: Karen White on 02-02-2025 ESR (Bld) [Velocity] 23 mm/h High 0-20 [facility] Foot 2 Viewson 02-02-2025 Foot 2 Views Normal [facility] Glomerular filtration rate ( GFR) estimation/1.73 sq m using serum, plasma, or whole bOrdered By: Nicholas Galarza on 02-02-2025 GFR/1.73 sq M.predicted among non-blacks MDRD (S/P/Bld) [Vol rate/Area] 74 mL/min/{1.73_m2} >60 [facility] Comment on above: mL/min/1.73m2 CKD-EP I Creatinine Equation (2020) H AND P Exam - [facility] 02-02-2025 H&P Exam - Hospitalist Normal [facility] Hematocrit Auto (Bld) [Volum e fraction]Ordered By: Nicholas Galarza on 02-02-2025 Hematocrit (Bld) [Volume fraction] 33.5 % Low 40-54 [facility] Hemoglobin measurementOrdere d By: Nicholas Galarza on 02-02-2025 Hemoglobin (Bld) [Mass/Vol] 10.9 g/dL Low 13.0-16. 5 [facility] Immature granulocytes/100 WB C Auto (Bld)Ordered By: Nicholas Galarza on 02-02-2025 Immature granulocytes/100 WBC (Bld) 0.700 % 0.0-0.9 [facility] Comment on above: IG% - Immature Granu locytes (promyelocytes, myelocytes and metamyelocytes) > 1% indicates that a LEFT SHIFT is Present. International normalized rat io (INR) calculationOrdered By: Nicholas Galarza on 02-02-2025 INR Coag (Bld) [Relative time] 1.4 {INR} [facility] Ketones Test strip Ql (U)Ord ered By: Nicholas Galarza on 02-02-2025 Ketones Ql (U) Negative Negative [facility] Laboratory - Chemistry and C hemistry - challengeOrdered By: Nicholas Galarza on 02-02-2025 AST [Catalytic activity/Vol] 15 U/L <38 [facility] Lactic Acidon 02-02-2025 Lactate [Moles/Vol] 3.1 mmol/L Invalid Interpretation Code 0.0-2.0 [facility] Comment on above: Order Comment: Y Result Comment: Crit ical Result(s) Called at: 2106 by: EVON RAMANFF??Results read back by same. Performed By: #### L 300.3900, L300.4310, L503.6005, M200.1000, L100.0100, L500.4050 ####[facility] [address] [place], [address] MCV (mean corpuscular volume ) determinationOrdered By: Nicholas Galarza on 02-02-2025 MCV (RBC) [Entitic vol] 85.0 fL 80-94 [facility] Magnesiumon 02-02-2025 Magnesium [Mass/Vol] 0.9 mg/dL Invalid Interpretation Code 1.5-2.2 [facility] Comment on above: Order Comment: Comme nts: may add to ED labs Result Comment: Crit ical Result(s) Called at:2345 by: KIM MARTINEZ??Results read back by same. Performed By: #### L 501.5200, L501.6710, L101.9900 ####[facility] [address] [place], [address] Magnesium measurement (mass/ volume)Ordered By: Karen Aly on 02-02-2025 Magnesium (Unsp spec) [Mass/Vol] 0.9 mg/dL Low 1.5-2.2 [facility] Comment on above: Critical Result(s) C alled at:2346 by: KIM ADRIAN Results read back by same. Mean corpuscular hemoglobin (MCH) determinationOrdered By: Nicholas Galarza on 02-02-2025 MCH (RBC) [Entitic mass] 27.7 pg 27.0-32.0 [facility] Mean corpuscular hemoglobin concentration (MCHC) determinationOrdered By: Nicholas Galarza on 02-02-2025 MCHC (RBC) [Mass/Vol] 32.5 g/dL 32-36 [facility] Mean platelet volume determi nationOrdered By: Nicholas Galarza on 02-02-2025 Platelet mean volume (Bld) [Entitic vol] 9.4 fL 6.2-12.0 [facility] Microscopic analysis of urin e for red blood cells (RBC)Ordered By: Nicholas Galarza on 02-02-2025 Microscopic analysis of urine for red blood cells (RBC) 5-10 SEEN /hpf 0-5 [facility] Monocyte percentageOrdered B y: Nicholas Galarza on 02-02-2025 Monocytes/100 WBC (Bld) 8.7 % 0-10 [facility] Mucus LM Ql (Urine sed)Order ed By: Nicholas Galarza on 02-02-2025 Mucus Ql (Urine sed) 0 SEEN /hpf [facility] Neutrophil percentageOrdered By: Nicholas Galarza on 02-02-2025 Neutrophils/100 WBC (Bld) 86.2 % High 47-70 [facility] Nitrite Test strip Ql (U)Ord ered By: Nicholas Galarza on 02-02-2025 Nitrite Ql (U) Negative Negative [facility] Nucleated red blood cell per centageOrdered By: Nicholas Galarza on 02-02-2025 Nucleated RBC/100 WBC (Bld) [Ratio] 0 % 0-5 [facility] Partial Thromboplast Timeon 02-02-2025 aPTT Coag (Bld) [Time] 34.0 s Normal 24.1-36.2 [facility] Comment on above: Performed By: #### L 300.3900, L300.4310, L503.6005, M200.1000, L100.0100, L500.4050 ####[facility] [address] [place], [address] Platelet countOrdered By: Jose Juan Galarza on 02-02-2025 Platelets (Bld) [#/Vol] 203 10*3/uL 150-450 [facility] Potassium measurement (mass/ volume)Ordered By: Nicholas Galarza on 02-02-2025 Potassium (Unsp spec) [Mass/Vol] 3.8 mmol/L 3.3-5.1 [facility] Protein Test strip Ql (U)Ord ered By: Nicholas Galarza on 02-02-2025 Protein Ql (U) 30 mg/dl High Negative [facility] Prothrombin Time w/INRon INR Coag (PPP) [Relative time] 1.4 {INR} Normal [facility] Comment on above: Performed By: #### L 300.3900, L300.4310, L503.6005, M200.1000, L100.0100, L500.4050 ####[facility] [address] [place], [place], [id number] PT Coag (PPP) [Time] 17.3 s High 11.7-14.9 [facility] Comment on above: Performed By: #### L 300.3900, L300.4310, L503.6005, M200.1000, L100.0100, L500.4050 ####[facility] [address] [place], [place], [id number] Prothrombin timeOrdered By: Nicholas Galarza on 02-02-2025 PT Coag (PPP) [Time] 17.3 s High 11.7-14.9 [facility] RBC Auto (Bld) [#/Vol]Ordere d By: Nicholas Galarza on 02-02-2025 RBC (Bld) [#/Vol] 3.94 10*6/uL Low 4.6-6.2 [facility] Serum creatinine measurement (mass/volume)Ordered By: Nicholas Galarza on 02-02-2025 Creatinine [Mass/Vol] 1.04 mg/dL 0.70-1.20 [facility] Serum globulin measurementOr dered By: Nicholas Galarza on 02-02-2025 Globulin (S) [Mass/Vol] 2.3 g/dL 2.2-4.2 [facility] Serum glucose measurement (m ass/volume)Ordered By: Nicholas Galarza on 02-02-2025 Glucose [Mass/Vol] 195 mg/dL High 70-99 [facility] Serum or plasma C reactive p rotein measurement (mass/volume)Ordered By: Karen Aly on 02-02-2025 CRP [Mass/Vol] 94.50 mg/L High 0.0-3.0 [facility] Serum or plasma alanine davis otransferase (ALT) measurementOrdered By: Nicholas Galarza on 02-02-2025 ALT [Catalytic activity/Vol] 10 U/L <47 [facility] Serum or plasma albumin antoine urement (mass/volume)Ordered By: Nicholas Galarza on 02-02-2025 Albumin [Mass/Vol] 3.5 g/dL 3.4-4.8 [facility] Serum or plasma albumin/glob ulin mass ratioOrdered By: Nicholas Galarza on 02-02-2025 Albumin/Globulin [Mass ratio] 1.5 {ratio} 0.9-2.4 [facility] Serum or plasma alkaline marilin sphatase measurementOrdered By: Nicholas Galarza on 02-02-2025 ALP [Catalytic activity/Vol] 115 U/L 40-129 [facility] Serum or plasma calcium antoine urement (mass/volume)Ordered By: Nicholas Galarza on 02-02-2025 Calcium [Mass/Vol] 8.7 mg/dL 7.6-11.0 [facility] Serum or plasma urea nitroge n measurement (mass/volume)Ordered By: Nicholas Galarza on 02-02-2025 Urea nitrogen [Mass/Vol] 18 mg/dL 4-19 [facility] Sodium levelOrdered By: Supriya Galarza on 02-02-2025 Sodium [Moles/Vol] 141 mmol/L 133-145 [facility] Squamous epithelial cells de tection in urine sediment by light microscopyOrdered By: Nicholas Galarza on 02-02-2025 Epithelial cells.squamous LM Ql (Urine sed) 0-5 SEEN /hpf 0-5 [facility] Total proteinOrdered By: Hermes Galarza on 02-02-2025 Protein [Mass/Vol] 5.8 g/dL Low 5.9-8.4 [facility] Urinalysis, Completeon 02-02 BACTERIA 1+ /hpf Normal None Seen [facility] Comment on above: Order Comment: LEILA TER SPECIMEN Performed By: #### M 100.2200, L400.0001 ####[facility] [address] [place], [address] EPI,SQUAMOUS 0-5 SEEN Normal 0-5 [facility] Comment on above: Order Comment: LEILA TER SPECIMEN Performed By: #### M 100.2200, L400.0001 ####[facility] [address] [place], [address] RBC 5-10 SEEN Normal 0-5 [facility] Comment on above: Order Comment: LEILA TER SPECIMEN Performed By: #### M 100.2200, L400.0001 ####[facility] [address] [place], [address] WBC 5-10 SEEN Normal 0-5 [facility] Comment on above: Order Comment: LEILA TER SPECIMEN Performed By: #### M 100.2200, L400.0001 ####[facility] [address] [place], [address] Mucus Ql (Urine sed) 0 SEEN Normal [facility] Comment on above: Order Comment: LEILA TER SPECIMEN Performed By: #### M 100.2200, L400.0001 ####[facility] [address] [place], [address] Urine Legionella pneumophila antigen detectionOrdered By: Karen White on 02-02-2025 L. pneumophila Ag Ql (U) [facility] Urine clarityOrdered By: Hermes Galarza on 02-02-2025 Clarity (U) Clear Clear [facility] Urine color determinationOrd ered By: Nicholas Galarza on 02-02-2025 Color (U) Yellow Yellow [facility] Urine cultureOrdered By: Hermes Galarza on 02-02-2025 Bacteria identified Cx Nom (U) Culture exhibits no growth. [facility] Urine glucose detectionOrder ed By: Nicholas Galarza on 02-02-2025 Glucose Ql (U) 250 mg/dl High Normal [facility] Urine leukocyte esterase det ection by dipstickOrdered By: Nicholas Galarza on 07-22-2025 Leukocyte esterase Test strip Ql (U) Negative Negative [facility] Urine pHOrdered By: Nicholas ron on 02-02-2025 pH (U) 5.0 [pH] 5.0 - 8.0 [facility] Urine sediment bacteria coun t by microscopy (number/high power field)Ordered By: Nicholas Galarza on 02-02-2025 Bacteria LM.HPF (Urine sed) [#/Area] 1 /[HPF] None Seen [facility] Urine specific gravity measu rementOrdered By: Nicholas Galarza on 02-02-2025 Specific gravity (U) [Rel density] 1.015 1.002-1.03 0 [facility] Urine urobilinogen measureme ntOrdered By: Nicholas Galarza on 02-02-2025 Urobilinogen Ql (U) Normal mg/dl Normal [facility] White blood cell (WBC) count Ordered By: Nicholas Galarza on 02-02-2025 WBC (Bld) [#/Vol] 13.9 10*3/uL High 4.4-11.0 [facility] White blood cell countOrdere d By: Nicholas Galarza on 02-02-2025 White blood cell count 5-10 SEEN /hpf 0-5 [facility] Anion gap in Serum or Plasma Ordered By: Walter Becker on 12-22-2024 Anion gap [Moles/Vol] 10 mmol/L 5-15 [facility] Automated blood erythrocyte countOrdered By: Walter eBcker on 12-22-2024 RBC (Bld) [#/Vol] 4.43 10*6/uL Low 4.6-6.2 [facility] Comment on above: Order Comment: 215.2 Performed By: #### L [id number], L100.0500, [id number] ####[facility] [id number] [place], [address] Automated blood hematocrit ( percentage)Ordered By: Walter Becker on 12-22-2024 Hematocrit (Bld) [Volume fraction] 37.9 % Low 40-54 [facility] Comment on above: Order Comment: 215.2 Performed By: #### L [id number], L100.0500, [id number] ####[facility] [id number] [place], [address] BUN/creatinine ratioOrdered By: Walter Becker on 12-22-2024 Urea nitrogen/Creatinine [Mass ratio] 19.8 mg/mg 10-20 [facility] Bilirubin, totalOrdered By: Walter Becker on 12-22-2024 Bilirubin [Mass/Vol] 0.43 mg/dL 0.00-1.30 [facility] CBC-Complete Blood Cnt No Di ffon 12-22-2024 RDW SD 41.9 fl Normal 35.1-43.9 [facility] Comment on above: Order Comment: 215.2 Performed By: #### L 500.4050, L100.0500, L501.9985 ####[facility] [address] [place], [address] Carbon dioxide, total [Moles /volume] in Central venous bloodOrdered By: Walter Becker on 12-22-2024 CO2 [Moles/Vol] 26.7 mmol/L 21.0-32.0 [facility] Chloride assayOrdered By: Horner on 12-22-2024 Chloride [Moles/Vol] 103 mmol/L 98-108 [facility] Comprehensive Metabolic Prof ilon 12-22-2024 Albumin [Mass/Vol] 3.6 g/dL Normal 3.4-4.8 [facility] Comment on above: Order Comment: 215.2 Performed By: #### L 500.4050, L100.0500, L501.9985 ####[facility] [address] [place], [address] Albumin/Globulin [Mass ratio] 1.7 {ratio} Normal 0.9-2.4 [facility] Comment on above: Order Comment: 215.2 Performed By: #### L 500.4050, L100.0500, L501.9985 ####[facility] [address] [place], [address] ALK PHOS 104 U/L Normal 40-129 [facility] Comment on above: Order Comment: 215.2 Performed By: #### L 500.4050, L100.0500, L501.9985 ####[facility] [address] [place], [address] ALT [Catalytic activity/Vol] 13 U/L Normal <=46 [facility] Comment on above: Order Comment: 215.2 Performed By: #### L 500.4050, L100.0500, L501.9985 ####[facility] [address] [place], [address] AST [Catalytic activity/Vol] 14 U/L Normal <=37 [facility] Comment on above: Order Comment: 215.2 Performed By: #### L 500.4050, L100.0500, L501.9985 ####[facility] [address] [place], [address] Bilirubin [Mass/Vol] 0.43 mg/dL Normal 0.00-1.30 [facility] Comment on above: Order Comment: 215.2 Performed By: #### L 500.4050, L100.0500, L501.9985 ####[facility] [address] [place], [address] BUN/CRE 19.8 RATIO Normal 10-20 [facility] Comment on above: Order Comment: 215.2 Performed By: #### L 500.4050, L100.0500, L501.9985 ####[facility] [address] [place], [address] Calcium [Mass/Vol] 9.5 mg/dL Normal 7.6-11.0 [facility] Comment on above: Order Comment: 215.2 Performed By: #### L 500.4050, L100.0500, L501.9985 ####[facility] [address] [place], [address] Chloride [Moles/Vol] 103 mmol/L Normal 98-108 [facility] Comment on above: Order Comment: 215.2 Performed By: #### L 500.4050, L100.0500, L501.9985 ####[facility] [address] [place], [address] CO2 [Moles/Vol] 26.7 mmol/L Normal 21.0-32.0 [facility] Comment on above: Order Comment: 215.2 Performed By: #### L 500.4050, L100.0500, L501.9985 ####[facility] [address] [place], [address] Creatinine [Mass/Vol] 1.04 mg/dL Normal 0.70-1.20 [facility] Comment on above: Order Comment: 215.2 Performed By: #### L 500.4050, L100.0500, L501.9985 ####[facility] [address] [place], [address] GAP 10 Normal 5-15 [facility] Comment on above: Order Comment: 215.2 Performed By: #### L 500.4050, L100.0500, L501.9985 ####[facility] [address] [place], [address] GFR/1.73 sq M.predicted among non-blacks MDRD (S/P/Bld) [Vol rate/Area] 74 mL/min/{1.73_m2} Normal >60 [facility] Comment on above: Order Comment: 215.2 Result Comment: mL/m in/1.73m2 CKD-EPI Creatinine Equation (2020) Performed By: #### L 500.4050, L100.0500, L501.9985 ####[facility] [address] [place], [address] Globulin (S) [Mass/Vol] 2.2 g/dL Normal 2.2-4.2 [facility] Comment on above: Order Comment: 215.2 Performed By: #### L 500.4050, L100.0500, L501.9985 ####[facility] [address] [place], [address] Glucose [Mass/Vol] 131 mg/dL High 70-99 [facility] Comment on above: Order Comment: 215.2 Performed By: #### L 500.4050, L100.0500, L501.9985 ####[facility] [address] [place], [address] Potassium [Moles/Vol] 4.2 mmol/L Normal 3.3-5.1 [facility] Comment on above: Order Comment: 215.2 Performed By: #### L 500.4050, L100.0500, L501.9985 ####[facility] [address] [place], [address] Sodium [Moles/Vol] 141 mmol/L Normal 133-145 [facility] Comment on above: Order Comment: 215.2 Performed By: #### L 500.4050, L100.0500, L501.9985 ####[facility] [address] [place], [address] T PROT 5.8 g/dL Low 5.9-8.4 [facility] Comment on above: Order Comment: 215.2 Performed By: #### L 500.4050, L100.0500, [id number] ####[facility] [address] [place], [address] Urea nitrogen [Mass/Vol] 21 mg/dL High 4-19 [facility] Comment on above: Order Comment: 215.2 Performed By: #### L 500.4050, L100.0500, L501.9985 ####[facility] [address] [place], [address] Erythrocyte distribution wid th ratioOrdered By: Walter Becker on 12-22-2024 Erythrocyte distribution width (RBC) [Ratio] 13.5 % Normal 11.6-14.6 [facility] Comment on above: Order Comment: 215.2 Performed By: #### L 500.4050, L100.0500, L501.9992 ####[facility] [address] [place], [address] Erythrocyte distribution wid th standard deviationOrdered By: Walter Becker on 12-22-2024 Erythrocyte distribution width (RBC) [Ratio] 41.9 fl 35.1-43.9 [facility] Glomerular filtration rate ( GFR) estimation/1.73 sq m using serum, plasma, or whole bOrdered By: Walter Becker on 12-22-2024 GFR/1.73 sq M.predicted among non-blacks MDRD (S/P/Bld) [Vol rate/Area] 74 mL/min/{1.73_m2} >60 [facility] Comment on above: mL/min/1.73m2 CKD-EP I Creatinine Equation (2020) Hemoglobin A1con 12-22-2024 HbA1c (Bld) [Mass fraction] 7.0 % High <=5.6 [facility] Comment on above: Order Comment: 215.2 Result Comment: Norm al < 5.7 % Prediabetic 5.7 - 6.4 % Diabetic >or= 6.5 % Please note range changes. Performed By: #### L 500.4050, L100.0500, L501.9985 ####[facility] [address] [place], [place], [id number] Hemoglobin A1c percentageOrd ered By: Walter Becker on 12-22-2024 HbA1c (Bld) [Mass fraction] 7.0 % High <5.7 [facility] Comment on above: Normal < 5.7 % Predi abetic 5.7 - 6.4 % Diabetic >or= 6.5 % Please note range changes. Hemoglobin measurementOrdere d By: Walter Becker on 12-22-2024 Hemoglobin (Bld) [Mass/Vol] 12.4 g/dL Low 13.0-16. 5 [facility] Comment on above: Order Comment: 215.2 Performed By: #### L 500.4050, L100.0500, L501.9985 ####[facility] [address] [place], [address] Laboratory - Chemistry and C hemistry - challengeOrdered By: Walter Becker on 12-22-2024 AST [Catalytic activity/Vol] 14 U/L <38 [facility] MCV (mean corpuscular volume ) determinationOrdered By: Walter Becker on 12-22-2024 MCV (RBC) [Entitic vol] 85.6 fL Normal 80-94 [facility] Comment on above: Order Comment: 215.2 Performed By: #### L 500.4050, L100.0500, L501.9985 ####[facility] [address] [place], [address] Mean corpuscular hemoglobin (MCH) determinationOrdered By: Walter Becker on 12-22-2024 MCH (RBC) [Entitic mass] 28.0 pg Normal 27.0-32.0 [facility] Comment on above: Order Comment: 215.2 Performed By: #### L 500.4050, L100.0500, L501.9985 ####[facility] [address] [place], [address] Mean corpuscular hemoglobin concentration (MCHC) determinationOrdered By: Walter Becker on 12-22-2024 MCHC (RBC) [Mass/Vol] 32.7 g/dL Normal 32-36 [facility] Comment on above: Order Comment: 215.2 Performed By: #### L 500.4050, L100.0500, L501.9985 ####[facility] [address] [place], [address] Mean platelet volume determi nationOrdered By: Walter Becker on 12-22-2024 Platelet mean volume (Bld) [Entitic vol] 9.5 fL Normal 6.2-12.0 [facility] Comment on above: Order Comment: 215.2 Performed By: #### L 500.4050, L100.0500, L501.9985 ####[facility] [address] [place], [place], [address] No Panel InformationOrdered By: Walter Becker on 12-22-2024 14 U/L <38 [facility] Platelet countOrdered By: Horner on 12-22-2024 Platelets (Bld) [#/Vol] 214 10*3/uL Normal 150-450 [facility] Comment on above: Order Comment: 215.2 Performed By: #### L 500.4050, L100.0500, L501.9985 ####[facility] [address] [place], [place], [address] Potassium measurement (mass/ volume)Ordered By: Walter Becker on 12-22-2024 Potassium (Unsp spec) [Mass/Vol] 4.2 mmol/L 3.3-5.1 [facility] Serum creatinine measurement (mass/volume)Ordered By: Walter Becker on 12-22-2024 Creatinine [Mass/Vol] 1.04 mg/dL 0.70-1.20 [facility] Serum globulin measurementOr dered By: Walter Becker on 12-22-2024 Globulin (S) [Mass/Vol] 2.2 g/dL 2.2-4.2 [facility] Serum glucose measurement (m ass/volume)Ordered By: Walter Becker on 12-22-2024 Glucose [Mass/Vol] 131 mg/dL High 70-99 [facility] Serum or plasma alanine davis otransferase (ALT) measurementOrdered By: Walter Becker on 12-22-2024 ALT [Catalytic activity/Vol] 13 U/L <47 [facility] Serum or plasma albumin antoine urement (mass/volume)Ordered By: Walter Becker on 12-22-2024 Albumin [Mass/Vol] 3.6 g/dL 3.4-4.8 [facility] Serum or plasma albumin/glob ulin mass ratioOrdered By: Walter Becker on 12-22-2024 Albumin/Globulin [Mass ratio] 1.7 {ratio} 0.9-2.4 [facility] Serum or plasma alkaline mariiln sphatase measurementOrdered By: Walter Becker on 12-22-2024 ALP [Catalytic activity/Vol] 104 U/L 40-129 [facility] Serum or plasma calcium antoine urement (mass/volume)Ordered By: Walter Becker on 12-22-2024 Calcium [Mass/Vol] 9.5 mg/dL 7.6-11.0 [facility] Serum or plasma urea nitroge n measurement (mass/volume)Ordered By: Walter Becker on 12-22-2024 Urea nitrogen [Mass/Vol] 21 mg/dL High 4-19 [facility] Sodium levelOrdered By: Walter Becker on 12-22-2024 Sodium [Moles/Vol] 141 mmol/L 133-145 [facility] Total proteinOrdered By: Crystal Becker on 12-22-2024 Protein [Mass/Vol] 5.8 g/dL Low 5.9-8.4 [facility] White blood cell (WBC) count Ordered By: Walter Becker on 12-22-2024 WBC (Bld) [#/Vol] 9.4 10*3/uL Normal 4.4-11.0 [facility] Comment on above: Order Comment: 215.2 Performed By: #### L 500.4050, L100.0500, L501.9985 ####[facility] [address] [place], [address] Vitamin D,25 Hydroxyon 12-16 Vitamin D 25-OH 31.8 ng/mL Normal 30-100 [facility] Comment on above: Order Comment: 215.2 Result Comment: Laure min D StatusDeficiency: <20 ng/mL (50nmol/L)Insufficiency: 20-30 ng/mL (50-75 nmol/L)Sufficiency: 30-100 ng/mL (75-250 nmol/L)Toxicity: >100 ng/mL (>250 nmol/L) Performed By: #### L 506.1001 ####[facility] [address] [place], [address] Urine Cultureon 11-25-2024 URC Culture exhibits no growth. Normal [facility] Comment on above: Performed By: #### L 400.0001, L100.0500, M100.2200, L500.4050 ####[facility] [address] [place], [address] Anion gap in Serum or Plasma Ordered By: Walter Becker on 11-24-2024 Anion gap [Moles/Vol] 14 mmol/L - [facility] BUN/creatinine ratioOrdered By: Walter Becker on 11-24-2024 Urea nitrogen/Creatinine [Mass ratio] 19.5 mg/mg - [facility] Bilirubin Test strip Ql (U)O rdered By: Walter Becker on 11-24-2024 Bilirubin Ql (U) Negative Negative [facility] Bilirubin, totalOrdered By: Walter Becker on 11-24-2024 Bilirubin [Mass/Vol] 0.34 mg/dL 0.00-1.30 [facility] CBC-Complete Blood Cnt No Di ffon 11-24-2024 Erythrocyte distribution width (RBC) [Ratio] 13.4 % Normal 11.6-14.6 [facility] Comment on above: Order Comment: 215.2 Performed By: #### L 400.0001, L100.0500, M100.2200, L500.4050 ####[facility] [address] [place], [address] Hematocrit (Bld) [Volume fraction] 38.0 % Low 40-54 [facility] Comment on above: Order Comment: 215.2 Performed By: #### L 400.0001, L100.0500, M100.2200, L500.4050 ####[facility] [address] [place], [address] Hemoglobin (Bld) [Mass/Vol] 12.1 g/dL Low 13.0-16. 5 [facility] Comment on above: Order Comment: 215.2 Performed By: #### L 400.0001, L100.0500, M100.2200, L500.4050 ####[facility] [address] [place], [address] MCH (RBC) [Entitic mass] 27.6 pg Normal 27.0-32.0 [facility] Comment on above: Order Comment: 215.2 Performed By: #### L 400.0001, L100.0500, M100.2200, L500.4050 ####[facility] [address] [place], [address] MCHC (RBC) [Mass/Vol] 31.8 g/dL Low 32-36 [facility] Comment on above: Order Comment: 215.2 Performed By: #### L 400.0001, L100.0500, M100.2200, L500.4050 ####[facility] [address] [place], [address] MCV (RBC) [Entitic vol] 86.6 fL Normal 80-94 [facility] Comment on above: Order Comment: 215.2 Performed By: #### L 400.0001, L100.0500, M100.2200, L500.4050 ####[facility] [address] [place], [address] Platelet mean volume (Bld) [Entitic vol] 9.4 fL Normal 6.2-12.0 [facility] Comment on above: Order Comment: 215.2 Performed By: #### L 400.0001, L100.0500, M100.2200, L500.4050 ####[facility] [address] [place], [address] Platelets (Bld) [#/Vol] 200 10*3/uL Normal 150-450 [facility] Comment on above: Order Comment: 215.2 Performed By: #### L 400.0001, L100.0500, M100.2200, L500.4050 ####[facility] [address] [place], [address] RBC (Bld) [#/Vol] 4.39 10*6/uL Low 4.6-6.2 [facility] Comment on above: Order Comment: 215.2 Performed By: #### L 400.0001, L100.0500, M100.2200, L500.4050 ####[facility] [address] [place], [address] RDW SD 41.4 fl Normal 35.1-43.9 [facility] Comment on above: Order Comment: 215.2 Performed By: #### L 400.0001, L100.0500, M100.2200, L500.4050 ####[facility] [address] [place], [address] WBC (Bld) [#/Vol] 8.9 10*3/uL Normal 4.4-11.0 [facility] Comment on above: Order Comment: 215.2 Performed By: #### L 400.0001, L100.0500, M100.2200, L500.4050 ####[facility] [address] [place], [address] Carbon dioxide, total [Moles /volume] in Central venous bloodOrdered By: Walter Becker on 11-24-2024 CO2 [Moles/Vol] 21.7 mmol/L 21.0-32.0 [facility] Chloride assayOrdered By: Horner on 11-24-2024 Chloride [Moles/Vol] 105 mmol/L 98-108 [facility] Comprehensive Metabolic Prof ilon 11-24-2024 Albumin [Mass/Vol] 3.3 g/dL Low 3.4-4.8 [facility] Comment on above: Order Comment: 215.2 Performed By: #### L 400.0001, L100.0500, M100.2200, L500.4050 ####[facility] [address] [place], [address] Albumin/Globulin [Mass ratio] 1.6 {ratio} Normal 0.9-2.4 [facility] Comment on above: Order Comment: 215.2 Performed By: #### L 400.0001, L100.0500, M100.2200, L500.4050 ####[facility] [address] [place], [address] ALK PHOS 101 U/L Normal 40-129 [facility] Comment on above: Order Comment: 215.2 Performed By: #### L 400.0001, L100.0500, M100.2200, L500.4050 ####[facility] [address] [place], [address] ALT [Catalytic activity/Vol] 14 U/L Normal <=46 [facility] Comment on above: Order Comment: 215.2 Performed By: #### L 400.0001, L100.0500, M100.2200, L500.4050 ####[facility] [address] [place], [address] AST [Catalytic activity/Vol] 16 U/L Normal <=37 [facility] Comment on above: Order Comment: 215.2 Performed By: #### L 400.0001, L100.0500, M100.2200, L500.4050 ####[facility] [address] [place], [address] Bilirubin [Mass/Vol] 0.34 mg/dL Normal 0.00-1.30 [facility] Comment on above: Order Comment: 215.2 Performed By: #### L 400.0001, L100.0500, M100.2200, L500.4050 ####[facility] [address] [place], [address] BUN/CRE 19.5 RATIO Normal 10-20 [facility] Comment on above: Order Comment: 215.2 Performed By: #### L 400.0001, L100.0500, M100.2200, L500.4050 ####[facility] [address] [place], [address] Calcium [Mass/Vol] 8.9 mg/dL Normal 7.6-11.0 [facility] Comment on above: Order Comment: 215.2 Performed By: #### L 400.0001, L100.0500, M100.2200, L500.4050 ####[facility] [address] [place], [address] Chloride [Moles/Vol] 105 mmol/L Normal 98-108 [facility] Comment on above: Order Comment: 215.2 Performed By: #### L 400.0001, L100.0500, M100.2200, L500.4050 ####[facility] [address] [place], [address] CO2 [Moles/Vol] 21.7 mmol/L Normal 21.0-32.0 [facility] Comment on above: Order Comment: 215.2 Performed By: #### L 400.0001, L100.0500, M100.2200, L500.4050 ####[facility] [address] [place], [address] Creatinine [Mass/Vol] 1.15 mg/dL Normal 0.70-1.20 [facility] Comment on above: Order Comment: 215.2 Performed By: #### L 400.0001, L100.0500, M100.2200, L500.4050 ####[facility] [address] [place], [address] GAP 14 Normal 5-15 [facility] Comment on above: Order Comment: 215.2 Performed By: #### L 400.0001, L100.0500, M100.2200, L500.4050 ####[facility] [address] [place], [address] GFR/1.73 sq M.predicted among non-blacks MDRD (S/P/Bld) [Vol rate/Area] 66 mL/min/{1.73_m2} Normal >60 [facility] Comment on above: Order Comment: 215.2 Result Comment: mL/m in/1.73m2 CKD-EPI Creatinine Equation (2020) Performed By: #### L 400.0001, L100.0500, M100.2200, L500.4050 ####[facility] [address] [place], [address] Globulin (S) [Mass/Vol] 2.0 g/dL Low 2.2-4.2 [facility] Comment on above: Order Comment: 215.2 Performed By: #### L 400.0001, L100.0500, M100.2200, L500.4050 ####[facility] [address] [place], [address] Glucose [Mass/Vol] 139 mg/dL High 70-99 [facility] Comment on above: Order Comment: 215.2 Performed By: #### L 400.0001, L100.0500, M100.2200, L500.4050 ####[facility] [address] [place], [address] Potassium [Moles/Vol] 4.2 mmol/L Normal 3.3-5.1 [facility] Comment on above: Order Comment: 215.2 Performed By: #### L 400.0001, L100.0500, M100.2200, L500.4050 ####[facility] [address] [place], [address] Sodium [Moles/Vol] 141 mmol/L Normal 133-145 [facility] Comment on above: Order Comment: 215.2 Performed By: #### L 400.0001, L100.0500, M100.2200, L500.4050 ####[facility] [address] [place], [address] T PROT 5.3 g/dL Low 5.9-8.4 [facility] Comment on above: Order Comment: 215.2 Performed By: #### L 400.0001, L100.0500, M100.2200, L500.4050 ####[facility] [address] [place], [address] Urea nitrogen [Mass/Vol] 22 mg/dL High 4-19 [facility] Comment on above: Order Comment: 215.2 Performed By: #### L 400.0001, L100.0500, M100.2200, L500.4050 ####[facility] [address] [place], [address] Erythrocyte distribution wid th ratioOrdered By: Walter Becker on 11-24-2024 Erythrocyte distribution width (RBC) [Ratio] 13.4 % 11.6-14.6 [facility] Erythrocyte distribution wid th standard deviationOrdered By: Walter Becker on 11-24-2024 Erythrocyte distribution width (RBC) [Ratio] 41.4 fl 35.1-43.9 [facility] Glomerular filtration rate ( GFR) estimation/1.73 sq m using serum, plasma, or whole bOrdered By: Walter Becker on 11-24-2024 GFR/1.73 sq M.predicted among non-blacks MDRD (S/P/Bld) [Vol rate/Area] 66 mL/min/{1.73_m2} >60 [facility] Comment on above: mL/min/1.73m2 CKD-EP I Creatinine Equation (2020) Hematocrit Auto (Bld) [Volum e fraction]Ordered By: Walter Becker on 11-24-2024 Hematocrit (Bld) [Volume fraction] 38.0 % Low 40-54 [facility] Hemoglobin measurementOrdere d By: Walter Becker on 11-24-2024 Hemoglobin (Bld) [Mass/Vol] 12.1 g/dL Low 13.0-16. 5 [facility] Ketones Test strip Ql (U)Ord ered By: Walter Becker on 11-24-2024 Ketones Ql (U) Negative Negative [facility] Laboratory - Chemistry and C hemistry - challengeOrdered By: Walter Becker on 11-24-2024 AST [Catalytic activity/Vol] 16 U/L <38 [facility] MCV (mean corpuscular volume ) determinationOrdered By: Walter Becker on 11-24-2024 MCV (RBC) [Entitic vol] 86.6 fL 80-94 [facility] Mean corpuscular hemoglobin (MCH) determinationOrdered By: Walter Becker on 11-24-2024 MCH (RBC) [Entitic mass] 27.6 pg 27.0-32.0 [facility] Mean corpuscular hemoglobin concentration (MCHC) determinationOrdered By: Walter Becker on 11-24-2024 MCHC (RBC) [Mass/Vol] 31.8 g/dL Low 32-36 [facility] Mean platelet volume determi nationOrdered By: Walter Becker on 11-24-2024 Platelet mean volume (Bld) [Entitic vol] 9.4 fL 6.2-12.0 [facility] Microscopic analysis of urin e for red blood cells (RBC)Ordered By: Walter Becker on 11-24-2024 Microscopic analysis of urine for red blood cells (RBC) 0 SEEN /hpf 0-5 [facility] Mucus LM Ql (Urine sed)Order ed By: Walter Becker on 11-24-2024 Mucus Ql (Urine sed) 0 SEEN /hpf [facility] Nitrite Test strip Ql (U)Ord ered By: Walter Becker on 11-24-2024 Nitrite Ql (U) Negative Negative [facility] No Panel InformationOrdered By: Walter Becker on 11-24-2024 16 U/L <38 [facility] Platelet countOrdered By: Horner on 11-24-2024 Platelets (Bld) [#/Vol] 200 10*3/uL 150-450 [facility] Potassium measurement (mass/ volume)Ordered By: Walter Becker on 11-24-2024 Potassium (Unsp spec) [Mass/Vol] 4.2 mmol/L 3.3-5.1 [facility] Protein Test strip Ql (U)Ord ered By: Walter Becker on 11-24-2024 Protein Ql (U) Negative Negative [facility] RBC Auto (Bld) [#/Vol]Ordere d By: Walter Becker on 11-24-2024 RBC (Bld) [#/Vol] 4.39 10*6/uL Low 4.6-6.2 [facility] Serum creatinine measurement (mass/volume)Ordered By: Walter Becker on 11-24-2024 Creatinine [Mass/Vol] 1.15 mg/dL 0.70-1.20 [facility] Serum globulin measurementOr dered By: Walter Becker on 11-24-2024 Globulin (S) [Mass/Vol] 2.0 g/dL Low 2.2-4.2 [facility] Serum glucose measurement (m ass/volume)Ordered By: Walter Becker on 11-24-2024 Glucose [Mass/Vol] 139 mg/dL High 70-99 [facility] Serum or plasma alanine davis otransferase (ALT) measurementOrdered By: Walter Becker on 11-24-2024 ALT [Catalytic activity/Vol] 14 U/L <47 [facility] Serum or plasma albumin antoine urement (mass/volume)Ordered By: Walter Becker on 11-24-2024 Albumin [Mass/Vol] 3.3 g/dL Low 3.4-4.8 [facility] Serum or plasma albumin/glob ulin mass ratioOrdered By: Walter Becker on 11-24-2024 Albumin/Globulin [Mass ratio] 1.6 {ratio} 0.9-2.4 [facility] Serum or plasma alkaline marilin sphatase measurementOrdered By: Walter Becker on 11-24-2024 ALP [Catalytic activity/Vol] 101 U/L 40-129 [facility] Serum or plasma calcium antoine urement (mass/volume)Ordered By: Walter Becker on 11-24-2024 Calcium [Mass/Vol] 8.9 mg/dL 7.6-11.0 [facility] Serum or plasma urea nitroge n measurement (mass/volume)Ordered By: Walter Becker on 11-24-2024 Urea nitrogen [Mass/Vol] 22 mg/dL High 4-19 [facility] Sodium levelOrdered By: Walter Becker on 11-24-2024 Sodium [Moles/Vol] 141 mmol/L 133-145 [facility] Squamous epithelial cells de tection in urine sediment by light microscopyOrdered By: Walter Becker on 11-24-2024 Epithelial cells.squamous LM Ql (Urine sed) 0 SEEN /hpf 0-5 [facility] Total proteinOrdered By: Crystal Becker on 11-24-2024 Protein [Mass/Vol] 5.3 g/dL Low 5.9-8.4 [facility] Urinalysis, Completeon 11-24 WBC 0-5 SEEN Normal 0-5 [facility] Comment on above: Order Comment: LEILA TER SPECIMEN Performed By: #### L 400.0001, L100.0500, M100.2200, L500.4050 ####[facility] [address] [place], [address] BACTERIA 0 SEEN Normal None Seen [facility] Comment on above: Order Comment: LEILA TER SPECIMEN Performed By: #### L 400.0001, L100.0500, M100.2200, L500.4050 ####[facility] [address] [place], [address] EPI,SQUAMOUS 0 SEEN Normal 0-5 [facility] Comment on above: Order Comment: LEILA TER SPECIMEN Performed By: #### L 400.0001, L100.0500, M100.2200, L500.4050 ####[facility] [address] [place], [address] Mucus Ql (Urine sed) 0 SEEN Normal [facility] Comment on above: Order Comment: LEILA TER SPECIMEN Performed By: #### L 400.0001, L100.0500, M100.2200, L500.4050 ####[facility] [address] [place], [address] RBC 0 SEEN Normal 0-5 [facility] Comment on above: Order Comment: LEILA TER SPECIMEN Performed By: #### L 400.0001, L100.0500, M100.2200, L500.4050 ####[facility] [address] [place], [address] Urine clarityOrdered By: Crystal Becker on 11-24-2024 Clarity (U) Clear Clear [facility] Urine color determinationOrd ered By: Walter Becker on 11-24-2024 Color (U) Yellow Yellow [facility] Urine cultureOrdered By: Crystal Becker on 11-24-2024 Bacteria identified Cx Nom (U) Culture exhibits no growth. [facility] Urine glucose detectionOrder ed By: Walter Becker on 11-24-2024 Glucose Ql (U) Normal mg/dl Normal [facility] Urine leukocyte esterase det ection by dipstickOrdered By: Walter Becker on 11-24-2024 Leukocyte esterase Test strip Ql (U) Negative Negative [facility] Urine pHOrdered By: Walter floyd on 11-24-2024 pH (U) 6.0 [pH] 5.0 - 8.0 [facility] Urine sediment bacteria coun t by microscopy (number/high power field)Ordered By: Walter Becker on 11-24-2024 Bacteria LM.HPF (Urine sed) [#/Area] 0 /[HPF] None Seen [facility] Urine specific gravity measu rementOrdered By: Walter Becker on 11-24-2024 Specific gravity (U) [Rel density] 1.010 1.002-1.03 0 [facility] Urine urobilinogen measureme ntOrdered By: Walter Becker on 11-24-2024 Urobilinogen Ql (U) Normal mg/dl Normal [facility] White blood cell (WBC) count Ordered By: Walter Becker on 11-24-2024 WBC (Bld) [#/Vol] 8.9 10*3/uL 4.4-11.0 [facility] White blood cell countOrdere d By: Walter Becker on 11-24-2024 White blood cell count 0-5 SEEN /hpf 0-5 [facility] CNPNon 11-06-2024 CNPN Telephone (4CQ) RICHARD ROY ([id number]) 1945 M Date Time Provider Department 11/06/24 ABDULAZIZ CALDERA 4CQ During your visit today, we recorded the following information about you: Ann Raymond 11/06/2024 10:55 AM Signed Spoke with spouse as patient is over due for visit with PCP , stated patient is at [facility] in [place]. We did not remove PCP. Abdulaziz Caldera [...] INSULIN PEN NEEDLE UF) 31 gauge x 5/16" 1 Each four times daily. With insulin - B cmplx 4/vit D3/C/folic/zinc (VITAL-D RX ORAL) Take by mouth one time a week. - blood sugar diagnostic (Integrated Corporate HealthTOUCH ULTRA TEST) test strip Test blood sugar(s) [...] Status:Closed by AMADA COHN on 11/06/[address] [facility] Cardiology Visit Reporton Cardiology Visit Report Normal [facility] Calculated very low density lipoprotein (VLDL) cholesterol measurementOrdered By: Walter Becker on 10-05-2024 VLDL Cholesterol 41 mg/dL High 5-40 [facility] LDL calc ser/plasOrdered By: Walter Becker on 10-05-2024 LDL Cholesterol, Calculated 31 mg/dL [facility] Comment on above: Uikkxvsfcg=113-630 m g/dL & Higher Meyp=376 mg/dL or greater Lipid Profileon 10-05-2024 CHOL:HDL 3.37 Normal [facility] Comment on above: Order Comment: 215.2 Performed By: #### L 500.4100 ####[facility] [address] [place], [address] Cholesterol [Mass/Vol] 103 mg/dL Normal <=200 [facility] Comment on above: Order Comment: 215.2 Result Comment: Chol esterol level, Desirable <200 mg/dLBorderline high cholesterol 200-239 mg/dLHigh cholesterol >=240 mg/dLRecommendations of the NCEP Adult Treatment Panel for thefollowing risk-cutoff thresholds for the [place] Americanpulation. Performed By: #### L 500.4100 ####[facility] [address] [place], [address] Cholesterol in HDL [Mass/Vol] 31 mg/dL Low [facility] Comment on above: Order Comment: 215.2 Result Comment: Stephanie onal Cholesterol Education Program (NCEP) guidelines:<40 mg/dL: Low HDL-cholesterol (major risk factor for CHD)>= 60 mg/dL: High HDL-cholesterol (negative risk factor forCHD)HDL-cholesterol is affected by a number of factors, e.g.smoking, exercise, hormones, sex and age. Performed By: #### L 500.4100 ####[facility] [address] [place], [address] Cholesterol in LDL [Mass/Vol] 31 mg/dL Normal [facility] Comment on above: Order Comment: 215.2 Result Comment: Bord ksjtzi=886-083 mg/dL Higher Wrpp=194 mg/dL or greater Performed By: #### L 500.4100 ####[facility] [address] [place], [address] Cholesterol in VLDL [Mass/Vol] 41 mg/dL High 5-40 [facility] Comment on above: Order Comment: 215.2 Performed By: #### L 500.4100 ####[facility] [address] [place], [address] Triglyceride [Mass/Vol] 207 mg/dL High [facility] Comment on above: Order Comment: 215.2 Result Comment: The drugs N-Acetylcysteine and Metamizole may falselydepress this assay.Normal range: <150 mg/dLBorderline High: 150-199 mg/dLHigh: 200-499 mg/dLVery High: >500 mg/dL Performed By: #### L 500.4100 ####[facility] [address] [place], [address] Screening total cholesterol/ high density lipoprotein (HDL) cholesterol ratioOrdered By: Walter Becker on 10-05-2024 Cholesterol.total/Cholester ol in HDL [Mass ratio] 3.37 {ratio} [facility] Serum or plasma cholesterol in HDL measurement (mass/volume)Ordered By: Walter Becker on 10-05-2024 Cholesterol in HDL [Mass/Vol] 31 mg/dL Low >40 [facility] Comment on above: National Cholesterol Education Program (NCEP) guidelines:<40 mg/dL: Low HDL-cholesterol (major risk factor for CHD)>= 60 mg/dL: High HDL-cholesterol (negative risk factor for CHD)HDL-cholesterol is affected by a number of factors, e.g. smoking, exercise, hormones, sex and age. Serum or plasma cholesterol measurement (mass/volume)Ordered By: Walter Becker on 10-05-2024 Cholesterol [Mass/Vol] 103 mg/dL <201 [facility] Comment on above: Cholesterol level, D esirable <200 mg/dLBorderline high cholesterol 200-239 mg/dLHigh cholesterol >=240 mg/dLRecommendations of the NCEP Adult Treatment Panel for the following risk-cutoff thresholds for the [place] population. Triglycerides measurementOrd ered By: Walter Becker on 10-05-2024 Triglyceride [Mass/Vol] 207 mg/dL High <199 [facility] Comment on above: The drugs N-Acetylcy steine and Metamizole may falsely depress this assay. Normal range: <150 mg/dLBorderline High: 150-199 mg/dLHigh: 200-499 mg/dLVery High: >500 mg/dL Anion gap in Serum or Plasma Ordered By: Walter Becker on 09-29-2024 Anion gap [Moles/Vol] 11 mmol/L 5-15 [facility] BUN/creatinine ratioOrdered By: Walter Becker on 09-29-2024 Urea nitrogen/Creatinine [Mass ratio] 20.5 mg/mg High 10-20 [facility] Bilirubin, totalOrdered By: Walter Becker on 09-29-2024 Bilirubin [Mass/Vol] 0.31 mg/dL 0.00-1.30 [facility] CBC-Complete Blood Cnt No Di ffon 09-29-2024 Erythrocyte distribution width (RBC) [Ratio] 13.7 % Normal 11.6-14.6 [facility] Comment on above: Order Comment: 215.2 Performed By: #### L 500.4050, L501.9985, L100.0500 ####[facility] [address] [place], [address] Hematocrit (Bld) [Volume fraction] 37.0 % Low 40-54 [facility] Comment on above: Order Comment: 215.2 Performed By: #### L 500.4050, L501.9985, L100.0500 ####[facility] [address] [place], [address] Hemoglobin (Bld) [Mass/Vol] 11.8 g/dL Low 13.0-16. 5 [facility] Comment on above: Order Comment: 215.2 Performed By: #### L 500.4050, L501.9985, L100.0500 ####[facility] [address] [place], [address] MCH (RBC) [Entitic mass] 27.9 pg Normal 27.0-32.0 [facility] Comment on above: Order Comment: 215.2 Performed By: #### L 500.4050, L501.9985, L100.0500 ####[facility] [address] [place], [address] MCHC (RBC) [Mass/Vol] 31.9 g/dL Low 32-36 [facility] Comment on above: Order Comment: 215.2 Performed By: #### L 500.4050, L501.9985, L100.0500 ####[facility] [address] [place], [address] MCV (RBC) [Entitic vol] 87.5 fL Normal 80-94 [facility] Comment on above: Order Comment: 215.2 Performed By: #### L 500.4050, L501.9985, L100.0500 ####[facility] [address] [place], [address] Platelet mean volume (Bld) [Entitic vol] 9.6 fL Normal 6.2-12.0 [facility] Comment on above: Order Comment: 215.2 Performed By: #### L 500.4050, L501.9985, L100.0500 ####[facility] [address] [place], [address] Platelets (Bld) [#/Vol] 226 10*3/uL Normal 150-450 [facility] Comment on above: Order Comment: 215.2 Performed By: #### L 500.4050, L501.9985, L100.0500 ####[facility] [address] [place], [address] RBC (Bld) [#/Vol] 4.23 10*6/uL Low 4.6-6.2 [facility] Comment on above: Order Comment: 215.2 Performed By: #### L 500.4050, L501.9985, L100.0500 ####[facility] [address] [place], [address] RDW SD 43.7 fl Normal 35.1-43.9 [facility] Comment on above: Order Comment: 215.2 Performed By: #### L 500.4050, L501.9985, L100.0500 ####[facility] [address] [place], [address] WBC (Bld) [#/Vol] 8.9 10*3/uL Normal 4.4-11.0 [facility] Comment on above: Order Comment: 215.2 Performed By: #### L 500.4050, L501.9985, L100.0500 ####[facility] [address] [place], [address] Carbon dioxide, total [Moles /volume] in Central venous bloodOrdered By: Walter Becker on 09-29-2024 CO2 [Moles/Vol] 25.6 mmol/L 21.0-32.0 [facility] Chloride assayOrdered By: Horner on 09-29-2024 Chloride [Moles/Vol] 104 mmol/L 98-108 [facility] Comprehensive Metabolic Prof ilon 09-29-2024 Albumin [Mass/Vol] 3.6 g/dL Normal 3.4-4.8 [facility] Comment on above: Order Comment: 215.2 Performed By: #### L 500.4050, L501.9985, L100.0500 ####[facility] [address] [place], [address] Albumin/Globulin [Mass ratio] 1.8 {ratio} Normal 0.9-2.4 [facility] Comment on above: Order Comment: 215.2 Performed By: #### L 500.4050, L501.9985, L100.0500 ####[facility] [address] [place], [address] ALK PHOS 101 U/L Normal 40-129 [facility] Comment on above: Order Comment: 215.2 Performed By: #### L 500.4050, L501.9985, L100.0500 ####[facility] [address] [place], [address] ALT [Catalytic activity/Vol] 19 U/L Normal <=46 [facility] Comment on above: Order Comment: 215.2 Performed By: #### L 500.4050, L501.9985, L100.0500 ####[facility] [address] [place], [address] AST [Catalytic activity/Vol] 15 U/L Normal <=37 [facility] Comment on above: Order Comment: 215.2 Performed By: #### L 500.4050, L501.9985, L100.0500 ####[facility] [address] [place], [address] Bilirubin [Mass/Vol] 0.31 mg/dL Normal 0.00-1.30 [facility] Comment on above: Order Comment: 215.2 Performed By: #### L 500.4050, L501.9985, L100.0500 ####[facility] [address] [place], [address] BUN/CRE 20.5 RATIO High 10-20 [facility] Comment on above: Order Comment: 215.2 Performed By: #### L 500.4050, L501.9985, L100.0500 ####[facility] [address] [place], [address] Calcium [Mass/Vol] 9.2 mg/dL Normal 7.6-11.0 [facility] Comment on above: Order Comment: 215.2 Performed By: #### L 500.4050, L501.9985, L100.0500 ####[facility] [address] [place], [address] Chloride [Moles/Vol] 104 mmol/L Normal 98-108 [facility] Comment on above: Order Comment: 215.2 Performed By: #### L 500.4050, L501.9985, L100.0500 ####[facility] [address] [place], [address] CO2 [Moles/Vol] 25.6 mmol/L Normal 21.0-32.0 [facility] Comment on above: Order Comment: 215.2 Performed By: #### L 500.4050, L501.9985, L100.0500 ####[facility] [address] [place], [address] Creatinine [Mass/Vol] 1.10 mg/dL Normal 0.70-1.20 [facility] Comment on above: Order Comment: 215.2 Performed By: #### L 500.4050, L501.9985, L100.0500 ####[facility] [address] [place], [address] GAP 11 Normal 5-15 [facility] Comment on above: Order Comment: 215.2 Performed By: #### L 500.4050, L501.9985, L100.0500 ####[facility] [address] [place], [address] GFR/1.73 sq M.predicted among non-blacks MDRD (S/P/Bld) [Vol rate/Area] 70 mL/min/{1.73_m2} Normal >60 [facility] Comment on above: Order Comment: 215.2 Result Comment: mL/m in/1.73m2 CKD-EPI Creatinine Equation (2020) Performed By: #### L 500.4050, L501.9985, L100.0500 ####[facility] [address] [place], [address] Globulin (S) [Mass/Vol] 2.0 g/dL Low 2.2-4.2 [facility] Comment on above: Order Comment: 215.2 Performed By: #### L 500.4050, L501.9985, L100.0500 ####[facility] [address] [place], [address] Glucose [Mass/Vol] 155 mg/dL High 70-99 [facility] Comment on above: Order Comment: 215.2 Performed By: #### L 500.4050, L501.9985, L100.0500 ####[facility] [address] [place], [address] Potassium [Moles/Vol] 4.2 mmol/L Normal 3.3-5.1 [facility] Comment on above: Order Comment: 215.2 Performed By: #### L 500.4050, L501.9985, L100.0500 ####[facility] [address] [place], [address] Sodium [Moles/Vol] 141 mmol/L Normal 133-145 [facility] Comment on above: Order Comment: 215.2 Performed By: #### L 500.4050, L501.9985, L100.0500 ####[facility] [address] [place], [address] T PROT 5.6 g/dL Low 5.9-8.4 [facility] Comment on above: Order Comment: 215.2 Performed By: #### L 500.4050, L501.9985, L100.0500 ####[facility] [address] [place], [address] Urea nitrogen [Mass/Vol] 23 mg/dL High 4-19 [facility] Comment on above: Order Comment: 215.2 Performed By: #### L 500.4050, L501.9985, L100.0500 ####[facility] [address] [place], [address] Erythrocyte distribution wid th (RBC) [Ratio]Ordered By: Walter Becker on 09-29-2024 Erythrocyte distribution width (RBC) [Entitic vol] 43.7 fL 35.1-43.9 [facility] Erythrocyte distribution wid th ratioOrdered By: Walter Becker on 09-29-2024 Erythrocyte distribution width (RBC) [Ratio] 13.7 % 11.6-14.6 [facility] GFR/1.73 sq M.predicted kimberly g non-blacks MDRD (S/P/Bld) [Vol rate/Area]Ordered By: Walter Becker on 09-29-2024 Estimated GFR (MDRD) Non-Af Amer 70 >60 [facility] Comment on above: mL/min/1.73m2 CKD-EP I Creatinine Equation (2020) Hematocrit Auto (Bld) [Volum e fraction]Ordered By: Walter Becker on 09-29-2024 Hematocrit (Bld) [Volume fraction] 37.0 % Low 40-54 [facility] Hemoglobin A1con 09-29-2024 HbA1c (Bld) [Mass fraction] 6.6 % Normal <=5.6 [facility] Comment on above: Order Comment: 215.2 Performed By: #### L 500.4050, L501.9985, L100.0500 ####[facility] [address] [place], [id number] Hemoglobin A1c percentageOrd ered By: Walter Becker on 09-29-2024 HbA1c (Bld) [Mass fraction] 6.6 % >5.7 [facility] Hemoglobin measurementOrdere d By: Walter Becker on 09-29-2024 Hemoglobin (Bld) [Mass/Vol] 11.8 g/dL Low 13.0-16. 5 [facility] Laboratory - Chemistry and C hemistry - challengeOrdered By: Walter Becker on 09-29-2024 AST [Catalytic activity/Vol] 15 U/L <38 [facility] MCV (mean corpuscular volume ) determinationOrdered By: Walter Becker on 09-29-2024 MCV (RBC) [Entitic vol] 87.5 fL 80-94 [facility] Mean corpuscular hemoglobin (MCH) determinationOrdered By: Walter Becker on 09-29-2024 MCH (RBC) [Entitic mass] 27.9 pg 27.0-32.0 [facility] Mean corpuscular hemoglobin concentration (MCHC) determinationOrdered By: Walter Becker on 09-29-2024 MCHC (RBC) [Mass/Vol] 31.9 g/dL Low 32-36 [facility] Mean platelet volume determi nationOrdered By: Walter Becker on 09-29-2024 Platelet mean volume (Bld) [Entitic vol] 9.6 fL 6.2-12.0 [facility] Platelet countOrdered By: Horner on 09-29-2024 Platelets (Bld) [#/Vol] 226 10*3/uL 150-450 [facility] Potassium (Unsp spec) [Mass/ Vol]Ordered By: Walter Becker on 09-29-2024 Potassium [Moles/Vol] 4.2 mmol/L 3.3-5.1 [facility] RBC Auto (Bld) [#/Vol]Ordere d By: Walter Becker on 09-29-2024 RBC (Bld) [#/Vol] 4.23 10*6/uL Low 4.6-6.2 [facility] Serum creatinine measurement (mass/volume)Ordered By: Walter Becker on 09-29-2024 Creatinine [Mass/Vol] 1.10 mg/dL 0.70-1.20 [facility] Serum globulin measurementOr dered By: Walter Becker on 09-29-2024 Globulin (S) [Mass/Vol] 2.0 g/dL Low 2.2-4.2 [facility] Serum glucose measurement (m ass/volume)Ordered By: Walter Becker on 09-29-2024 Glucose [Mass/Vol] 155 mg/dL High 70-99 [facility] Serum or plasma alanine davis otransferase (ALT) measurementOrdered By: Walter Becker on 09-29-2024 ALT [Catalytic activity/Vol] 19 U/L <47 [facility] Serum or plasma albumin antoine urement (mass/volume)Ordered By: Walter Becker on 09-29-2024 Albumin [Mass/Vol] 3.6 g/dL 3.4-4.8 [facility] Serum or plasma albumin/glob ulin mass ratioOrdered By: Walter Becker on 09-29-2024 Albumin/Globulin [Mass ratio] 1.8 {ratio} 0.9-2.4 [facility] Serum or plasma alkaline marilin sphatase measurementOrdered By: Walter Becker on 09-29-2024 ALP [Catalytic activity/Vol] 101 U/L 40-129 [facility] Serum or plasma calcium antoine urement (mass/volume)Ordered By: Walter Becker on 09-29-2024 Calcium [Mass/Vol] 9.2 mg/dL 7.6-11.0 [facility] Serum or plasma urea nitroge n measurement (mass/volume)Ordered By: Walter Becker on 09-29-2024 Urea nitrogen [Mass/Vol] 23 mg/dL High 4-19 [facility] Sodium levelOrdered By: Walter Becker on 09-29-2024 Sodium [Moles/Vol] 141 mmol/L 133-145 [facility] Total proteinOrdered By: Crystal Becker on 09-29-2024 Protein [Mass/Vol] 5.6 g/dL Low 5.9-8.4 [facility] White blood cell (WBC) count Ordered By: Walter Becker on 09-29-2024 WBC (Bld) [#/Vol] 8.9 10*3/uL 4.4-11.0 [facility] Urine Cultureon 08-05-2024 URC Culture exhibits no growth. Normal [facility] Comment on above: Performed By: #### L 400.0001, M100.2200 ####[facility] [address] [place], [address] Albumin to globulin ratioOrd ered By: Walter Becker on 08-04-2024 Albumin/Globulin [Mass ratio] 1.0 {ratio} 0.9-2.4 [facility] Bilirubin Test strip Ql (U)O rdered By: Walter Becker on 08-04-2024 Bilirubin Ql (U) Negative Negative [facility] Bilirubin, totalOrdered By: Walter Becker on 08-04-2024 Bilirubin [Mass/Vol] 0.50 mg/dL 0.20-1.00 [facility] Comment on above: For patients on eltr ombopag therapy, use of Dimension [place] TBIL is not recommended. Blood urea nitrogen (BUN)/cr eatinine ratioOrdered By: Walter Becker on 08-04-2024 Urea nitrogen/Creatinine [Mass ratio] 21.1 mg/mg High 10-20 [facility] CBC-Complete Blood Cnt No Di ffon 08-04-2024 Erythrocyte distribution width (RBC) [Ratio] 13.0 % Normal 11.6-14.6 [facility] Comment on above: Order Comment: 215.2 Performed By: #### L 500.4050, L100.0500 ####[facility] [address] [place], [address] Hematocrit (Bld) [Volume fraction] 41.3 % Normal 40-54 [facility] Comment on above: Order Comment: 215.2 Performed By: #### L 500.4050, L100.0500 ####[facility] [address] [place], [address] Hemoglobin (Bld) [Mass/Vol] 12.9 g/dL Low 13.0-16. 5 [facility] Comment on above: Order Comment: 215.2 Performed By: #### L 500.4050, L100.0500 ####[facility] [address] [place], [address] MCH (RBC) [Entitic mass] 27.3 pg Normal 27.0-32.0 [facility] Comment on above: Order Comment: 215.2 Performed By: #### L 500.4050, L100.0500 ####[facility] [address] [place], [address] MCHC (RBC) [Mass/Vol] 31.2 g/dL Low 32-36 [facility] Comment on above: Order Comment: 215.2 Performed By: #### L 500.4050, L100.0500 ####[facility] [address] [place], [address] MCV (RBC) [Entitic vol] 87.3 fL Normal 80-94 [facility] Comment on above: Order Comment: 215.2 Performed By: #### L 500.4050, L100.0500 ####[facility] [address] [place], [address] Platelet mean volume (Bld) [Entitic vol] 9.3 fL Normal 6.2-12.0 [facility] Comment on above: Order Comment: 215.2 Performed By: #### L 500.4050, L100.0500 ####[facility] [address] [place], [address] Platelets (Bld) [#/Vol] 295 10*3/uL Normal 150-450 [facility] Comment on above: Order Comment: 215.2 Performed By: #### L 500.4050, L100.0500 ####[facility] [address] [place], [address] RBC (Bld) [#/Vol] 4.73 10*6/uL Normal 4.6-6.2 [facility] Comment on above: Order Comment: 215.2 Performed By: #### L 500.4050, L100.0500 ####[facility] [address] [place], [address] RDW SD 41.8 fl Normal 35.1-43.9 [facility] Comment on above: Order Comment: 215.2 Performed By: #### L 500.4050, L100.0500 ####[facility] [address] [place], [address] WBC (Bld) [#/Vol] 9.3 10*3/uL Normal 4.4-11.0 [facility] Comment on above: Order Comment: 215.2 Performed By: #### L 500.4050, L100.0500 ####[facility] [address] [place], [address] Carbon dioxide measurementOr dered By: Walter Becker on 08-04-2024 CO2 [Moles/Vol] 29.0 mmol/L 21.0-32.0 [facility] Chloride measurementOrdered By: Walter Becker on 08-04-2024 Chloride [Moles/Vol] 104 mmol/L 98-107 [facility] Comprehensive Metabolic Prof ilon 08-04-2024 Albumin [Mass/Vol] 3.5 g/dL Normal 3.2-5.0 [facility] Comment on above: Order Comment: 215.2 Performed By: #### L 500.4050, L100.0500 ####[facility] [address] [place], [address] Albumin/Globulin [Mass ratio] 1.0 {ratio} Normal 0.9-2.4 [facility] Comment on above: Order Comment: 215.2 Performed By: #### L 500.4050, L100.0500 ####[facility] [address] [place], [address] ALK P 125 U/L High 45-117 [facility] Comment on above: Order Comment: 215.2 Performed By: #### L 500.4050, L100.0500 ####[facility] [address] [place], [address] ALT [Catalytic activity/Vol] 19 U/L Normal 16-61 [facility] Comment on above: Order Comment: 215.2 Performed By: #### L 500.4050, L100.0500 ####[facility] [address] [place], [address] AST [Catalytic activity/Vol] 12 U/L Low 15-37 [facility] Comment on above: Order Comment: 215.2 Performed By: #### L 500.4050, L100.0500 ####[facility] [address] [place], [address] Bilirubin [Mass/Vol] 0.50 mg/dL Normal 0.20-1.00 [facility] Comment on above: Order Comment: 215.2 Result Comment: For patients on eltrombopag therapy, use of Dimension [place] TBIL is not recommended. Performed By: #### L 500.4050, L100.0500 ####[facility] [address] [place], [address] BUN/CRE 21.1 RATIO High 10-20 [facility] Comment on above: Order Comment: 215.2 Performed By: #### L 500.4050, L100.0500 ####[facility] [address] [place], [address] CA,Total 9.7 mg/dL Normal 8.5-10.1 [facility] Comment on above: Order Comment: 215.2 Performed By: #### L 500.4050, L100.0500 ####[facility] [address] [place], [address] Chloride [Moles/Vol] 104 mmol/L Normal 98-107 [facility] Comment on above: Order Comment: 215.2 Performed By: #### L 500.4050, L100.0500 ####[facility] [address] [place], [address] CO2 [Moles/Vol] 29.0 mmol/L Normal 21.0-32.0 [facility] Comment on above: Order Comment: 215.2 Performed By: #### L 500.4050, L100.0500 ####[facility] [address] [place], [address] Creatinine [Mass/Vol] 1.28 mg/dL Normal 0.70-1.30 [facility] Comment on above: Order Comment: 215.2 Result Comment: The validity of the calculated GFR GFRAA in patients over70 years has not been determined. Clinical correlation isessential. Performed By: #### L 500.4050, L100.0500 ####[facility] [address] [place], [address] EST GFR - AA 70 mL/min Normal >60 [facility] Comment on above: Order Comment: 215.2 Result Comment: Afri can Vietnamese GFR Calc Performed By: #### L 500.4050, L100.0500 ####[facility] [address] [place], [address] GAP 7 Normal 5-15 [facility] Comment on above: Order Comment: 215.2 Performed By: #### L 500.4050, L100.0500 ####[facility] [address] [place], [address] GFR/1.73 sq M.predicted among non-blacks MDRD (S/P/Bld) [Vol rate/Area] 58 mL/min/{1.73_m2} Low >60 [facility] Comment on above: Order Comment: 215.2 Result Comment: Non- GFR Calc Performed By: #### L 500.4050, L100.0500 ####[facility] [address] [place], [address] Globulin (S) [Mass/Vol] 3.5 g/dL Normal 2.2-4.2 [facility] Comment on above: Order Comment: 215.2 Performed By: #### L 500.4050, L100.0500 ####[facility] [address] [place], [address] Glucose [Mass/Vol] 128 mg/dL High 74-106 [facility] Comment on above: Order Comment: 215.2 Result Comment: Fast ing Glucose result greater than or equal to 126 mg/dLsuggests DIABETES MELLITUS per A.D.A. criteria. Performed By: #### L 500.4050, L100.0500 ####[facility] [address] [place], [address] Potassium [Moles/Vol] 3.9 mmol/L Normal 3.5-5.1 [facility] Comment on above: Order Comment: 215.2 Performed By: #### L 500.4050, L100.0500 ####[facility] [address] [place], [address] Sodium [Moles/Vol] 140 mmol/L Normal 136-145 [facility] Comment on above: Order Comment: 215.2 Performed By: #### L 500.4050, L100.0500 ####[facility] [address] [place], [address] T PROT 7.0 g/dL Normal 6.4-8.2 [facility] Comment on above: Order Comment: 215.2 Performed By: #### L 500.4050, L100.0500 ####[facility] [address] [place], [address] Urea nitrogen [Mass/Vol] 27 mg/dL High 7-18 [facility] Comment on above: Order Comment: 215.2 Performed By: #### L 500.4050, L100.0500 ####[facility] [address] [place], [address] Epithelial cells.squamous LM Ql (Urine sed)Ordered By: Walter Becker on 08-04-2024 Epithelial cells.squamous LM.HPF (Urine sed) [#/Area] 0 /[HPF] 0-5 [facility] Erythrocyte distribution wid th (RBC) [Ratio]Ordered By: Walter Becker on 08-04-2024 Erythrocyte distribution width (RBC) [Entitic vol] 41.8 fL 35.1-43.9 [facility] Erythrocyte distribution wid th ratioOrdered By: Walter Becker on 08-04-2024 Erythrocyte distribution width (RBC) [Ratio] 13.0 % 11.6-14.6 [facility] Estimated glomerular filtrat ion rate (GFR) AmericanOrdered By: Walter Becker on 08-04-2024 Estimated GFR (MDRD) Amer 70 mL/min >60 [facility] Comment on above: GFR Calc Glomerular filtration rate ( GFR) estimationOrdered By: Walter Becker on 08-04-2024 Estimated GFR (MDRD) Non-Af Amer 58 mL/min Low >60 [facility] Comment on above: Non- GFR Calc Glucose Ql (U)Ordered By: Horner on 08-04-2024 Urine Glucose (UA) Normal mg/dl Normal [facility] Glucose measurementOrdered B y: Walter Becker on 08-04-2024 Glucose [Mass/Vol] 128 mg/dL High 74-106 [facility] Comment on above: Fasting Glucose resu lt greater than or equal to 126 mg/dL suggests DIABETES MELLITUS per A.D.A. criteria. Hematocrit Auto (Bld) [Volum e fraction]Ordered By: Walter Becker on 08-04-2024 Hematocrit (Bld) [Volume fraction] 41.3 % 40-54 [facility] Hemoglobin measurementOrdere d By: Walter Becker on 08-04-2024 Hemoglobin (Bld) [Mass/Vol] 12.9 g/dL Low 13.0-16. 5 [facility] Ketones Test strip Ql (U)Ord ered By: Walter Becker on 08-04-2024 Ketones Ql (U) Negative Negative [facility] Laboratory - Chemistry and C hemistry - challengeOrdered By: Walter Becker on 08-04-2024 AST [Catalytic activity/Vol] 12 U/L Low 15-37 [facility] MCV (mean corpuscular volume ) determinationOrdered By: Walter Becker on 08-04-2024 MCV (RBC) [Entitic vol] 87.3 fL 80-94 [facility] Mean corpuscular hemoglobin (MCH) determinationOrdered By: Walter Becker on 08-04-2024 MCH (RBC) [Entitic mass] 27.3 pg 27.0-32.0 [facility] Mean corpuscular hemoglobin concentration (MCHC) determinationOrdered By: Walter Becker on 08-04-2024 MCHC (RBC) [Mass/Vol] 31.2 g/dL Low 32-36 [facility] Mean platelet volume determi nationOrdered By: Walter Becker on 08-04-2024 Platelet mean volume (Bld) [Entitic vol] 9.3 fL 6.2-12.0 [facility] Microscopic analysis of urin e for red blood cells (RBC)Ordered By: Walter Becker on 08-04-2024 Urine RBC 0 SEEN /hpf 0-5 [facility] Mucus LM Ql (Urine sed)Order ed By: Walter Becker on 08-04-2024 Mucus Ql (Urine sed) 0 SEEN /hpf [facility] Nitrite Test strip Ql (U)Ord ered By: Walter Becker on 08-04-2024 Nitrite Ql (U) Negative Negative [facility] Platelet countOrdered By: Horner on 08-04-2024 Platelets (Bld) [#/Vol] 295 10*3/uL 150-450 [facility] Potassium measurementOrdered By: Walter Becker on 08-04-2024 Potassium [Moles/Vol] 3.9 mmol/L 3.5-5.1 [facility] Protein Test strip Ql (U)Ord ered By: Walter Becker on 08-04-2024 Protein Ql (U) Negative Negative [facility] RBC Auto (Bld) [#/Vol]Ordere d By: Walter Becker on 08-04-2024 RBC (Bld) [#/Vol] 4.73 10*6/uL 4.6-6.2 [facility] Serum anion gap measurementO rdered By: Walter Becker on 08-04-2024 Anion gap [Moles/Vol] 7 mmol/L 5-15 [facility] Serum globulin measurementOr dered By: Walter Becker on 08-04-2024 Globulin (S) [Mass/Vol] 3.5 g/dL 2.2-4.2 [facility] Serum or plasma alanine davis otransferase (ALT) measurementOrdered By: Walter Becker on 08-04-2024 ALT [Catalytic activity/Vol] 19 U/L 16-61 [facility] Serum or plasma albumin antoine urement (mass/volume)Ordered By: Walter Becker on 08-04-2024 Albumin [Mass/Vol] 3.5 g/dL 3.2-5.0 [facility] Serum or plasma alkaline marilin sphatase measurementOrdered By: Walter Becker on 08-04-2024 ALP [Catalytic activity/Vol] 125 U/L High 45-117 [facility] Serum or plasma calcium antoine urement (mass/volume)Ordered By: Walter Becker on 08-04-2024 Calcium [Mass/Vol] 9.7 mg/dL 8.5-10.1 [facility] Serum or plasma creatinine m easurement (mass/volume)Ordered By: Walter Becker on 08-04-2024 Creatinine [Mass/Vol] 1.28 mg/dL 0.70-1.30 [facility] Comment on above: The validity of the calculated GFR & GFRAA in patients over 70 years has not been determined. Clinical correlation is essential. Serum or plasma urea nitroge n measurement (mass/volume)Ordered By: Walter Becker on 08-04-2024 Urea nitrogen [Mass/Vol] 27 mg/dL High 7-18 [facility] Sodium levelOrdered By: Walter Becker on 08-04-2024 Sodium [Moles/Vol] 140 mmol/L 136-145 [facility] Total proteinOrdered By: Crystal Becker on 08-04-2024 Protein [Mass/Vol] 7.0 g/dL 6.4-8.2 [facility] Urinalysis, Completeon 08-04 WBC 0-5 SEEN Normal 0-5 [facility] Comment on above: Order Comment: SCCAT HETER SPECIMEN Performed By: #### L 400.0001, ####[facility] [address] [place], [place], [id number] BACTERIA 0 SEEN Normal None Seen [facility] Comment on above: Order Comment: SCCAT HETER SPECIMEN Performed By: #### L 400.0001, ####[facility] [address] [place], [address] EPI,SQUAMOUS 0 SEEN Normal 0-5 [facility] Comment on above: Order Comment: SCCAT HETER SPECIMEN Performed By: #### L 400.0001, M100.2200 ####[facility] [address] [place], [address] Mucus Ql (Urine sed) 0 SEEN Normal [facility] Comment on above: Order Comment: SCCAT HETER SPECIMEN Performed By: #### L 400.0001, M100.2200 ####[facility] [address] [place], [address] RBC 0 SEEN Normal 0-5 [facility] Comment on above: Order Comment: SCCAT HETER SPECIMEN Performed By: #### L 400.0001, M100.2200 ####[facility] [address] [place], [address] Urine blood detectionOrdered By: Walter Becker on 08-04-2024 Urine Occult Blood Negative Negative [facility] Urine clarityOrdered By: Crystal Becker on 08-04-2024 Clarity (U) Clear Clear [facility] Urine color determinationOrd ered By: Walter Becker on 08-04-2024 Color (U) Yellow Yellow [facility] Urine cultureOrdered By: Crystal Becker on 08-04-2024 Bacteria identified Cx Nom (U) Culture exhibits no growth. [facility] Urine leukocyte esterase det ection by dipstickOrdered By: Walter Becker on 08-04-2024 Leukocyte esterase Test strip Ql (U) Negative Negative [facility] Urine pHOrdered By: Walter floyd on 08-04-2024 pH (U) 6.0 [pH] 5.0 - 8.0 [facility] Urine sediment bacteria coun t by microscopy (number/high power field)Ordered By: Walter Becker on 08-04-2024 Bacteria LM.HPF (Urine sed) [#/Area] 0 /[HPF] None Seen [facility] Urine specific gravity measu rementOrdered By: Walter Becker on 08-04-2024 Specific gravity (U) [Rel density] 1.010 1.002-1.03 0 [facility] Urobilinogen Ql (U)Ordered B y: Walter Becker on 08-04-2024 Urine Urobilinogen Normal mg/dl Normal [facility] White blood cell (WBC) count Ordered By: Walter Becker on 08-04-2024 WBC (Bld) [#/Vol] 9.3 10*3/uL 4.4-11.0 [facility] White blood cell countOrdere d By: Walter Becker on 08-04-2024 Urine WBC 0-5 SEEN /hpf 0-5 [facility] Albumin to globulin ratioOrd ered By: Walter Becker on 07-27-2024 Albumin/Globulin [Mass ratio] 1.1 {ratio} 0.9-2.4 [facility] Bilirubin, totalOrdered By: Walter Becker on 07-27-2024 Bilirubin [Mass/Vol] 0.60 mg/dL 0.20-1.00 [facility] Comment on above: For patients on eltr ombopag therapy, use of Dimension [place] TBIL is not recommended. Blood urea nitrogen (BUN)/cr eatinine ratioOrdered By: Walter Becker on 07-27-2024 Urea nitrogen/Creatinine [Mass ratio] 20.0 mg/mg 10-20 [facility] CBC-Complete Blood Cnt No Di ffon 07-27-2024 Erythrocyte distribution width (RBC) [Ratio] 13.5 % Normal 11.6-14.6 [facility] Comment on above: Order Comment: 215-2 Performed By: #### L 500.4050, L100.0500 ####[facility] [address] [place], [place], [id number] Hematocrit (Bld) [Volume fraction] 35.7 % Low 40-54 [facility] Comment on above: Order Comment: 215-2 Performed By: #### L 500.4050, L100.0500 ####[facility] [address] [place], [address] Hemoglobin (Bld) [Mass/Vol] 11.5 g/dL Low 13.0-16. 5 [facility] Comment on above: Order Comment: 215-2 Performed By: #### L 500.4050, L100.0500 ####[facility] [address] [place], [address] MCH (RBC) [Entitic mass] 28.2 pg Normal 27.0-32.0 [facility] Comment on above: Order Comment: 215-2 Performed By: #### L 500.4050, L100.0500 ####[facility] [address] [place], [address] MCHC (RBC) [Mass/Vol] 32.2 g/dL Normal 32-36 [facility] Comment on above: Order Comment: 215-2 Performed By: #### L 500.4050, L100.0500 ####[facility] [address] [place], [address] MCV (RBC) [Entitic vol] 87.5 fL Normal 80-94 [facility] Comment on above: Order Comment: 215-2 Performed By: #### L 500.4050, L100.0500 ####[facility] [address] [place], [address] Platelet mean volume (Bld) [Entitic vol] 9.6 fL Normal 6.2-12.0 [facility] Comment on above: Order Comment: 215-2 Performed By: #### L 500.4050, L100.0500 ####[facility] [address] [place], [address] Platelets (Bld) [#/Vol] 192 10*3/uL Normal 150-450 [facility] Comment on above: Order Comment: 215-2 Performed By: #### L 500.4050, L100.0500 ####[facility] [address] [place], [address] RBC (Bld) [#/Vol] 4.08 10*6/uL Low 4.6-6.2 [facility] Comment on above: Order Comment: 215-2 Performed By: #### L 500.4050, L100.0500 ####[facility] [address] [place], [address] RDW SD 43.1 fl Normal 35.1-43.9 [facility] Comment on above: Order Comment: 215-2 Performed By: #### L 500.4050, L100.0500 ####[facility] [address] [place], [address] WBC (Bld) [#/Vol] 7.2 10*3/uL Normal 4.4-11.0 [facility] Comment on above: Order Comment: 215-2 Performed By: #### L 500.4050, L100.0500 ####[facility] [address] [place], [address] Carbon dioxide measurementOr dered By: Walter Becker on 07-27-2024 CO2 [Moles/Vol] 29.0 mmol/L 21.0-32.0 [facility] Chloride measurementOrdered By: Walter Becker on 07-27-2024 Chloride [Moles/Vol] 105 mmol/L 98-107 [facility] Comprehensive Metabolic Prof ilon 07-27-2024 Albumin [Mass/Vol] 3.1 g/dL Low 3.2-5.0 [facility] Comment on above: Order Comment: 215-2 Performed By: #### L 500.4050, L100.0500 ####[facility] [address] [place], [address] Albumin/Globulin [Mass ratio] 1.1 {ratio} Normal 0.9-2.4 [facility] Comment on above: Order Comment: 215-2 Performed By: #### L 500.4050, L100.0500 ####[facility] [address] [place], [address] ALK P 124 U/L High 45-117 [facility] Comment on above: Order Comment: 215-2 Performed By: #### L 500.4050, L100.0500 ####[facility] [address] [place], [address] ALT [Catalytic activity/Vol] 20 U/L Normal 16-61 [facility] Comment on above: Order Comment: 215-2 Performed By: #### L 500.4050, L100.0500 ####[facility] [address] [place], [address] AST [Catalytic activity/Vol] 10 U/L Low 15-37 [facility] Comment on above: Order Comment: 215-2 Performed By: #### L 500.4050, L100.0500 ####[facility] [address] [place], [address] Bilirubin [Mass/Vol] 0.60 mg/dL Normal 0.20-1.00 [facility] Comment on above: Order Comment: 215-2 Result Comment: For patients on eltrombopag therapy, use of Dimension [place] TBIL is not recommended. Performed By: #### L 500.4050, L100.0500 ####[facility] [address] [place], [address] BUN/CRE 20.0 RATIO Normal 10-20 [facility] Comment on above: Order Comment: 215-2 Performed By: #### L 500.4050, L100.0500 ####[facility] [address] [place], [address] CA,Total 8.9 mg/dL Normal 8.5-10.1 [facility] Comment on above: Order Comment: 215-2 Performed By: #### L 500.4050, L100.0500 ####[facility] [address] [place], [address] Chloride [Moles/Vol] 105 mmol/L Normal 98-107 [facility] Comment on above: Order Comment: 215-2 Performed By: #### L 500.4050, L100.0500 ####[facility] [address] [place], [address] CO2 [Moles/Vol] 29.0 mmol/L Normal 21.0-32.0 [facility] Comment on above: Order Comment: 215-2 Performed By: #### L 500.4050, L100.0500 ####[facility] [address] [place], [address] Creatinine [Mass/Vol] 1.10 mg/dL Normal 0.70-1.30 [facility] Comment on above: Order Comment: 215-2 Result Comment: The validity of the calculated GFR GFRAA in patients over70 years has not been determined. Clinical correlation isessential. Performed By: #### L 500.4050, L100.0500 ####[facility] [address] [place], [address] EST GFR - AA 84 mL/min Normal >60 [facility] Comment on above: Order Comment: 215-2 Result Comment: Afri can Vietnamese GFR Calc Performed By: #### L 500.4050, L100.0500 ####[facility] [address] [place], [address] GAP 4 Low 5-15 [facility] Comment on above: Order Comment: 215-2 Performed By: #### L 500.4050, L100.0500 ####[facility] [address] [place], [address] GFR/1.73 sq M.predicted among non-blacks MDRD (S/P/Bld) [Vol rate/Area] 69 mL/min/{1.73_m2} Normal >60 [facility] Comment on above: Order Comment: 215-2 Result Comment: Non- GFR Calc Performed By: #### L 500.4050, L100.0500 ####[facility] [address] [place], [address] Globulin (S) [Mass/Vol] 2.9 g/dL Normal 2.2-4.2 [facility] Comment on above: Order Comment: 215-2 Performed By: #### L 500.4050, L100.0500 ####[facility] [address] [place], [address] Glucose [Mass/Vol] 127 mg/dL High 74-106 [facility] Comment on above: Order Comment: 215-2 Result Comment: Fast ing Glucose result greater than or equal to 126 mg/dLsuggests DIABETES MELLITUS per A.D.A. criteria. Performed By: #### L 500.4050, L100.0500 ####[facility] [address] [place], [address] Potassium [Moles/Vol] 4.1 mmol/L Normal 3.5-5.1 [facility] Comment on above: Order Comment: 215-2 Performed By: #### L 500.4050, L100.0500 ####[facility] [address] [place], [address] Sodium [Moles/Vol] 137 mmol/L Normal 136-145 [facility] Comment on above: Order Comment: 215-2 Performed By: #### L 500.4050, L100.0500 ####[facility] [address] [place], [address] T PROT 6.0 g/dL Low 6.4-8.2 [facility] Comment on above: Order Comment: 215-2 Performed By: #### L 500.4050, L100.0500 ####[facility] [address] [place], [address] Urea nitrogen [Mass/Vol] 22 mg/dL High 7-18 [facility] Comment on above: Order Comment: 215-2 Performed By: #### L 500.4050, L100.0500 ####[facility] [address] [place], [address] Erythrocyte distribution wid th (RBC) [Ratio]Ordered By: Walter Becker on 07-27-2024 Erythrocyte distribution width (RBC) [Entitic vol] 43.1 fL 35.1-43.9 [facility] Erythrocyte distribution wid th ratioOrdered By: Walter Becker on 07-27-2024 Erythrocyte distribution width (RBC) [Ratio] 13.5 % 11.6-14.6 [facility] Estimated glomerular filtrat ion rate (GFR) AmericanOrdered By: Walter Becker on 07-27-2024 Estimated GFR (MDRD) Amer 84 mL/min >60 [facility] Comment on above: GFR Calc Glomerular filtration rate ( GFR) estimationOrdered By: Walter Becker on 07-27-2024 Estimated GFR (MDRD) Non-Af Amer 69 mL/min >60 [facility] Comment on above: Non- GFR Calc Glucose measurementOrdered B y: Walter Becker on 07-27-2024 Glucose [Mass/Vol] 127 mg/dL High 74-106 [facility] Comment on above: Fasting Glucose resu lt greater than or equal to 126 mg/dL suggests DIABETES MELLITUS per A.D.A. criteria. Hematocrit Auto (Bld) [Volum e fraction]Ordered By: Walter Becker on 07-27-2024 Hematocrit (Bld) [Volume fraction] 35.7 % Low 40-54 [facility] Hemoglobin measurementOrdere d By: Walter Becker on 07-27-2024 Hemoglobin (Bld) [Mass/Vol] 11.5 g/dL Low 13.0-16. 5 [facility] Laboratory - Chemistry and C hemistry - challengeOrdered By: Walter Becker on 07-27-2024 AST [Catalytic activity/Vol] 10 U/L Low 15-37 [facility] MCV (mean corpuscular volume ) determinationOrdered By: Walter Becker on 07-27-2024 MCV (RBC) [Entitic vol] 87.5 fL 80-94 [facility] Mean corpuscular hemoglobin (MCH) determinationOrdered By: Walter Becker on 07-27-2024 MCH (RBC) [Entitic mass] 28.2 pg 27.0-32.0 [facility] Mean corpuscular hemoglobin concentration (MCHC) determinationOrdered By: Walter Becker on 07-27-2024 MCHC (RBC) [Mass/Vol] 32.2 g/dL 32-36 [facility] Mean platelet volume determi nationOrdered By: Walter Becker on 07-27-2024 Platelet mean volume (Bld) [Entitic vol] 9.6 fL 6.2-12.0 [facility] Platelet countOrdered By: Horner on 07-27-2024 Platelets (Bld) [#/Vol] 192 10*3/uL 150-450 [facility] Potassium measurementOrdered By: Walter Becker on 07-27-2024 Potassium [Moles/Vol] 4.1 mmol/L 3.5-5.1 [facility] RBC Auto (Bld) [#/Vol]Ordere d By: Walter Becker on 07-27-2024 RBC (Bld) [#/Vol] 4.08 10*6/uL Low 4.6-6.2 [facility] Serum anion gap measurementO rdered By: Walter Becker on 07-27-2024 Anion gap [Moles/Vol] 4 mmol/L Low 5-15 [facility] Serum globulin measurementOr dered By: Walter Becker on 07-27-2024 Globulin (S) [Mass/Vol] 2.9 g/dL 2.2-4.2 [facility] Serum or plasma alanine davis otransferase (ALT) measurementOrdered By: Walter Becker on 07-27-2024 ALT [Catalytic activity/Vol] 20 U/L 16-61 [facility] Serum or plasma albumin antoine urement (mass/volume)Ordered By: Walter Becker on 07-27-2024 Albumin [Mass/Vol] 3.1 g/dL Low 3.2-5.0 [facility] Serum or plasma alkaline marilin sphatase measurementOrdered By: Walter Becker on 07-27-2024 ALP [Catalytic activity/Vol] 124 U/L High 45-117 [facility] Serum or plasma calcium antoine urement (mass/volume)Ordered By: Walter Becker on 07-27-2024 Calcium [Mass/Vol] 8.9 mg/dL 8.5-10.1 [facility] Serum or plasma creatinine m easurement (mass/volume)Ordered By: Walter Becker on 07-27-2024 Creatinine [Mass/Vol] 1.10 mg/dL 0.70-1.30 [facility] Comment on above: The validity of the calculated GFR & GFRAA in patients over 70 years has not been determined. Clinical correlation is essential. Serum or plasma urea nitroge n measurement (mass/volume)Ordered By: Walter Becker on 07-27-2024 Urea nitrogen [Mass/Vol] 22 mg/dL High 7-18 [facility] Sodium levelOrdered By: Walter Becker on 07-27-2024 Sodium [Moles/Vol] 137 mmol/L 136-145 [facility] Total proteinOrdered By: Crystal Becker on 07-27-2024 Protein [Mass/Vol] 6.0 g/dL Low 6.4-8.2 [facility] White blood cell (WBC) count Ordered By: Walter Becker on 07-27-2024 WBC (Bld) [#/Vol] 7.2 10*3/uL 4.4-11.0 [facility] Albumin to globulin ratioOrd ered By: Walter Becker on 07-07-2024 Albumin/Globulin [Mass ratio] 1.0 {ratio} 0.9-2.4 [facility] Bilirubin, totalOrdered By: Walter Becker on 07-07-2024 Bilirubin [Mass/Vol] 0.40 mg/dL 0.20-1.00 [facility] Comment on above: For patients on eltr ombopag therapy, use of Dimension [place] TBIL is not recommended. Blood urea nitrogen (BUN)/cr eatinine ratioOrdered By: Walter Becker on 07-07-2024 Urea nitrogen/Creatinine [Mass ratio] 23.6 mg/mg High 10-20 [facility] CBC-Complete Blood Cnt No Di ffon 07-07-2024 Erythrocyte distribution width (RBC) [Ratio] 13.3 % Normal 11.6-14.6 [facility] Comment on above: Order Comment: 215.2 Performed By: #### L 100.0500, L500.4050, L501.9985 ####[facility] [address] [place], [address] Hematocrit (Bld) [Volume fraction] 38.1 % Low 40-54 [facility] Comment on above: Order Comment: 215.2 Performed By: #### L 100.0500, L500.4050, L501.9985 ####[facility] [address] [place], [address] Hemoglobin (Bld) [Mass/Vol] 12.3 g/dL Low 13.0-16. 5 [facility] Comment on above: Order Comment: 215.2 Performed By: #### L 100.0500, L500.4050, L501.9985 ####[facility] [address] [place], [address] MCH (RBC) [Entitic mass] 28.3 pg Normal 27.0-32.0 [facility] Comment on above: Order Comment: 215.2 Performed By: #### L 100.0500, L500.4050, L501.9985 ####[facility] [address] [place], [address] MCHC (RBC) [Mass/Vol] 32.3 g/dL Normal 32-36 [facility] Comment on above: Order Comment: 215.2 Performed By: #### L 100.0500, L500.4050, L501.9985 ####[facility] [address] [place], [address] MCV (RBC) [Entitic vol] 87.6 fL Normal 80-94 [facility] Comment on above: Order Comment: 215.2 Performed By: #### L 100.0500, L500.4050, L501.9985 ####[facility] [address] [place], [address] Platelet mean volume (Bld) [Entitic vol] 9.1 fL Normal 6.2-12.0 [facility] Comment on above: Order Comment: 215.2 Performed By: #### L 100.0500, L500.4050, L501.9985 ####[facility] [address] [place], [address] Platelets (Bld) [#/Vol] 211 10*3/uL Normal 150-450 [facility] Comment on above: Order Comment: 215.2 Performed By: #### L 100.0500, L500.4050, L501.9985 ####[facility] [address] [place], [address] RBC (Bld) [#/Vol] 4.35 10*6/uL Low 4.6-6.2 [facility] Comment on above: Order Comment: 215.2 Performed By: #### L 100.0500, L500.4050, L501.9985 ####[facility] [address] [place], [address] RDW SD 42.5 fl Normal 35.1-43.9 [facility] Comment on above: Order Comment: 215.2 Performed By: #### L 100.0500, L500.4050, L501.9985 ####[facility] [address] [place], [address] WBC (Bld) [#/Vol] 7.6 10*3/uL Normal 4.4-11.0 [facility] Comment on above: Order Comment: 215.2 Performed By: #### L 100.0500, L500.4050, L501.9985 ####[facility] [address] [place], [address] Carbon dioxide measurementOr dered By: Walter Becker on 07-07-2024 CO2 [Moles/Vol] 32.0 mmol/L 21.0-32.0 [facility] Chloride measurementOrdered By: Walter Becker on 07-07-2024 Chloride [Moles/Vol] 107 mmol/L 98-107 [facility] Comprehensive Metabolic Prof ilon 07-07-2024 Albumin [Mass/Vol] 2.9 g/dL Low 3.2-5.0 [facility] Comment on above: Order Comment: 215.2 Performed By: #### L 100.0500, L500.4050, L501.9985 ####[facility] [address] [place], [address] Albumin/Globulin [Mass ratio] 1.0 {ratio} Normal 0.9-2.4 [facility] Comment on above: Order Comment: 215.2 Performed By: #### L 100.0500, L500.4050, L501.9985 ####[facility] [address] [place], [address] ALK P 121 U/L High 45-117 [facility] Comment on above: Order Comment: 215.2 Performed By: #### L 100.0500, L500.4050, L501.9985 ####[facility] [address] [place], [address] ALT [Catalytic activity/Vol] 20 U/L Normal 16-61 [facility] Comment on above: Order Comment: 215.2 Performed By: #### L 100.0500, L500.4050, L501.9985 ####[facility] [address] [place], [address] AST [Catalytic activity/Vol] 10 U/L Low 15-37 [facility] Comment on above: Order Comment: 215.2 Performed By: #### L 100.0500, L500.4050, L501.9985 ####[facility] [address] [place], [address] Bilirubin [Mass/Vol] 0.40 mg/dL Normal 0.20-1.00 [facility] Comment on above: Order Comment: 215.2 Result Comment: For patients on eltrombopag therapy, use of Dimension [place] TBIL is not recommended. Performed By: #### L 100.0500, L500.4050, L501.9985 ####[facility] [address] [place], [address] BUN/CRE 23.6 RATIO High 10-20 [facility] Comment on above: Order Comment: 215.2 Performed By: #### L 100.0500, L500.4050, L501.9985 ####[facility] [address] [place], [address] CA,Total 9.1 mg/dL Normal 8.5-10.1 [facility] Comment on above: Order Comment: 215.2 Performed By: #### L 100.0500, L500.4050, L501.9985 ####[facility] [address] [place], [address] Chloride [Moles/Vol] 107 mmol/L Normal 98-107 [facility] Comment on above: Order Comment: 215.2 Performed By: #### L 100.0500, L500.4050, L501.9985 ####[facility] [address] [place], [address] CO2 [Moles/Vol] 32.0 mmol/L Normal 21.0-32.0 [facility] Comment on above: Order Comment: 215.2 Performed By: #### L 100.0500, L500.4050, L501.9985 ####[facility] [address] [place], [address] Creatinine [Mass/Vol] 1.06 mg/dL Normal 0.70-1.30 [facility] Comment on above: Order Comment: 215.2 Result Comment: The validity of the calculated GFR GFRAA in patients over70 years has not been determined. Clinical correlation isessential. Performed By: #### L 100.0500, L500.4050, L501.9985 ####[facility] [address] [place], [address] EST GFR - AA 87 mL/min Normal >60 [facility] Comment on above: Order Comment: 215.2 Result Comment: Afri can Vietnamese GFR Calc Performed By: #### L 100.0500, L500.4050, L501.9985 ####[facility] [address] [place], [address] GAP 3 Low 5-15 [facility] Comment on above: Order Comment: 215.2 Performed By: #### L 100.0500, L500.4050, L501.9985 ####[facility] [address] [place], [address] GFR/1.73 sq M.predicted among non-blacks MDRD (S/P/Bld) [Vol rate/Area] 72 mL/min/{1.73_m2} Normal >60 [facility] Comment on above: Order Comment: 215.2 Result Comment: Non- GFR Calc Performed By: #### L 100.0500, L500.4050, L501.9985 ####[facility] [address] [place], [address] Globulin (S) [Mass/Vol] 3.0 g/dL Normal 2.2-4.2 [facility] Comment on above: Order Comment: 215.2 Performed By: #### L 100.0500, L500.4050, L501.9985 ####[facility] [address] [place], [address] Glucose [Mass/Vol] 130 mg/dL High 74-106 [facility] Comment on above: Order Comment: 215.2 Result Comment: Fast ing Glucose result greater than or equal to 126 mg/dLsuggests DIABETES MELLITUS per A.D.A. criteria. Performed By: #### L 100.0500, L500.4050, L501.9985 ####[facility] [address] [place], [address] Potassium [Moles/Vol] 3.9 mmol/L Normal 3.5-5.1 [facility] Comment on above: Order Comment: 215.2 Performed By: #### L 100.0500, L500.4050, L501.9985 ####[facility] [address] [place], [address] Sodium [Moles/Vol] 141 mmol/L Normal 136-145 [facility] Comment on above: Order Comment: 215.2 Performed By: #### L 100.0500, L500.4050, [id number] ####[facility] [address] [place], [address] T PROT 5.9 g/dL Low 6.4-8.2 [facility] Comment on above: Order Comment: 215.2 Performed By: #### L 100.0500, L500.4050, L501.9985 ####[facility] [address] [place], [address] Urea nitrogen [Mass/Vol] 25 mg/dL High 7-18 [facility] Comment on above: Order Comment: 215.2 Performed By: #### L 100.0500, L500.4050, L501.9985 ####[facility] [address] [place], [address] Erythrocyte distribution wid th (RBC) [Ratio]Ordered By: Walter Becker on 07-07-2024 Erythrocyte distribution width (RBC) [Entitic vol] 42.5 fL 35.1-43.9 [facility] Erythrocyte distribution wid th ratioOrdered By: Walter Becker on 07-07-2024 Erythrocyte distribution width (RBC) [Ratio] 13.3 % 11.6-14.6 [facility] Estimated glomerular filtrat ion rate (GFR) AmericanOrdered By: Walter Becker on 07-07-2024 Estimated GFR (MDRD) Amer 87 mL/min >60 [facility] Comment on above: GFR Calc Glomerular filtration rate ( GFR) estimationOrdered By: Walter Becker on 07-07-2024 Estimated GFR (MDRD) Non-Af Amer 72 mL/min >60 [facility] Comment on above: Non- GFR Calc Glucose measurementOrdered B y: Walter Becker on 07-07-2024 Glucose [Mass/Vol] 130 mg/dL High 74-106 [facility] Comment on above: Fasting Glucose resu lt greater than or equal to 126 mg/dL suggests DIABETES MELLITUS per A.D.A. criteria. Hematocrit Auto (Bld) [Volum e fraction]Ordered By: Walter Becker on 07-07-2024 Hematocrit (Bld) [Volume fraction] 38.1 % Low 40-54 [facility] Hemoglobin A1con 07-07-2024 HbA1c (Bld) [Mass fraction] 6.4 % High 3.8-5.6 [facility] Comment on above: Order Comment: 215.2 Result Comment: Norm al < 5.7 % Prediabetic 5.7 - 6.4 % Diabetic >or= 6.5 % Please note range changes. Performed By: #### L 100.0500, L500.4050, L501.9929 ####[facility] [address] [place], [place], [id number] Hemoglobin A1c percentageOrd ered By: Walter Becker on 07-07-2024 HbA1c (Bld) [Mass fraction] 6.4 % High 3.8-5.6 [facility] Comment on above: Normal < 5.7 % Predi abetic 5.7 - 6.4 % Diabetic >or= 6.5 % Please note range changes. Hemoglobin measurementOrdere d By: Walter Becker on 07-07-2024 Hemoglobin (Bld) [Mass/Vol] 12.3 g/dL Low 13.0-16. 5 [facility] Laboratory - Chemistry and C hemistry - challengeOrdered By: Walter Becker on 07-07-2024 AST [Catalytic activity/Vol] 10 U/L Low 15-37 [facility] MCV (mean corpuscular volume ) determinationOrdered By: Walter Becker on 07-07-2024 MCV (RBC) [Entitic vol] 87.6 fL 80-94 [facility] Mean corpuscular hemoglobin (MCH) determinationOrdered By: Walter Becker on 07-07-2024 MCH (RBC) [Entitic mass] 28.3 pg 27.0-32.0 [facility] Mean corpuscular hemoglobin concentration (MCHC) determinationOrdered By: Walter Becker on 07-07-2024 MCHC (RBC) [Mass/Vol] 32.3 g/dL 32-36 [facility] Mean platelet volume determi nationOrdered By: Walter Becker on 07-07-2024 Platelet mean volume (Bld) [Entitic vol] 9.1 fL 6.2-12.0 [facility] Platelet countOrdered By: Horner on 07-07-2024 Platelets (Bld) [#/Vol] 211 10*3/uL 150-450 [facility] Potassium measurementOrdered By: Walter Becker on 07-07-2024 Potassium [Moles/Vol] 3.9 mmol/L 3.5-5.1 [facility] RBC Auto (Bld) [#/Vol]Ordere d By: Walter Becker on 07-07-2024 RBC (Bld) [#/Vol] 4.35 10*6/uL Low 4.6-6.2 [facility] Serum anion gap measurementO rdered By: Walter Becker on 07-07-2024 Anion gap [Moles/Vol] 3 mmol/L Low 5-15 [facility] Serum globulin measurementOr dered By: Walter Becker on 07-07-2024 Globulin (S) [Mass/Vol] 3.0 g/dL 2.2-4.2 [facility] Serum or plasma alanine davis otransferase (ALT) measurementOrdered By: Walter Becker on 07-07-2024 ALT [Catalytic activity/Vol] 20 U/L 16-61 [facility] Serum or plasma albumin antoine urement (mass/volume)Ordered By: Walter Becker on 07-07-2024 Albumin [Mass/Vol] 2.9 g/dL Low 3.2-5.0 [facility] Serum or plasma alkaline marilin sphatase measurementOrdered By: Walter Becker on 07-07-2024 ALP [Catalytic activity/Vol] 121 U/L High 45-117 [facility] Serum or plasma calcium antoine urement (mass/volume)Ordered By: Walter Becker on 07-07-2024 Calcium [Mass/Vol] 9.1 mg/dL 8.5-10.1 [facility] Serum or plasma creatinine m easurement (mass/volume)Ordered By: Walter Becker on 07-07-2024 Creatinine [Mass/Vol] 1.06 mg/dL 0.70-1.30 [facility] Comment on above: The validity of the calculated GFR & GFRAA in patients over 70 years has not been determined. Clinical correlation is essential. Serum or plasma urea nitroge n measurement (mass/volume)Ordered By: Walter Becker on 07-07-2024 Urea nitrogen [Mass/Vol] 25 mg/dL High 7-18 [facility] Sodium levelOrdered By: Walter Becker on 07-07-2024 Sodium [Moles/Vol] 141 mmol/L 136-145 [facility] Total proteinOrdered By: Crystal Becker on 07-07-2024 Protein [Mass/Vol] 5.9 g/dL Low 6.4-8.2 [facility] White blood cell (WBC) count Ordered By: Walter Becker on 07-07-2024 WBC (Bld) [#/Vol] 7.6 10*3/uL 4.4-11.0 [facility] Vitamin D,25 Hydroxyon 07-02 Vitamin D 25-OH 58.5 ng/mL Normal [facility] Comment on above: Order Comment: 215.2 Result Comment: Laure min D 25(OH) Status Range Deficiency <20 ng/mL (50nmol/L) Insufficiency 20 - 30 ng/mL (50 - 75 nmol/L) Sufficiency 30 - 100 ng/mL (75 - 250 nmol/L) Toxicity >100 ng/mL (>250 nmol/L) Performed By: #### L 506.1000 ####[facility] [address] [place], [place], [id number] 17-TA-Parzdsl DOrdered By: Danny Becker on 07-01-2024 Vitamin D 25-Hydroxy 58.5 ng/mL [facility] Comment on above: Vitamin D 25(OH) Sta tus Range Deficiency <20 ng/mL (50nmol/L) Insufficiency 20 - 30 ng/mL (50 - 75 nmol/L) Sufficiency 30 - 100 ng/mL (75 - 250 nmol/L) Toxicity >100 ng/mL (>250 nmol/L) Bedside Glucoseon 06-01-2024 FINGERSTICK GLU 183 mg/dL High 74-106 [facility] Comment on above: Result Comment: JAZ BRANDON OF PATIENT CARE PER NURSING PROTOCOL Performed By: #### L 501.080 ####[facility] [address] [place], [place], [id number] Fluor Guidance for Spine Inj on 06-01-2024 Fluor Guidance for Spine Inj Normal [facility] Operative Reporton Operative Report Normal [facility] CBC-Complete Blood Cnt No Di ffon 04-14-2024 Erythrocyte distribution width (RBC) [Ratio] 14.6 % Normal 11.6-14.6 [facility] Comment on above: Order Comment: 215.2 Performed By: #### L 501.9985, L500.4050, L100.0500 ####[facility] [address] [place], [place], [id number] Hematocrit (Bld) [Volume fraction] 39.3 % Low 40-54 [facility] Comment on above: Order Comment: 215.2 Performed By: #### L 501.9985, L500.4050, L100.0500 ####[facility] [address] [place], [address] Hemoglobin (Bld) [Mass/Vol] 12.3 g/dL Low 13.0-16. 5 [facility] Comment on above: Order Comment: 215.2 Performed By: #### L 501.9985, L500.4050, L100.0500 ####[facility] [address] [place], [address] MCH (RBC) [Entitic mass] 27.3 pg Normal 27.0-32.0 [facility] Comment on above: Order Comment: 215.2 Performed By: #### L 501.9985, L500.4050, L100.0500 ####[facility] [address] [place], [address] MCHC (RBC) [Mass/Vol] 31.3 g/dL Low 32-36 [facility] Comment on above: Order Comment: 215.2 Performed By: #### L 501.9985, L500.4050, L100.0500 ####[facility] [address] [place], [address] MCV (RBC) [Entitic vol] 87.3 fL Normal 80-94 [facility] Comment on above: Order Comment: 215.2 Performed By: #### L 501.9985, L500.4050, L100.0500 ####[facility] [address] [place], [address] Platelet mean volume (Bld) [Entitic vol] 9.6 fL Normal 6.2-12.0 [facility] Comment on above: Order Comment: 215.2 Performed By: #### L 501.9985, L500.4050, L100.0500 ####[facility] [address] [place], [address] Platelets (Bld) [#/Vol] 224 10*3/uL Normal 150-450 [facility] Comment on above: Order Comment: 215.2 Performed By: #### L 501.9985, L500.4050, L100.0500 ####[facility] [address] [place], [address] RBC (Bld) [#/Vol] 4.50 10*6/uL Low 4.6-6.2 [facility] Comment on above: Order Comment: 215.2 Performed By: #### L 501.9985, L500.4050, L100.0500 ####[facility] [address] [place], [address] RDW SD 46.6 fl High 35.1-43.9 [facility] Comment on above: Order Comment: 215.2 Performed By: #### L 501.9985, L500.4050, L100.0500 ####[facility] [address] [place], [address] WBC (Bld) [#/Vol] 8.5 10*3/uL Normal 4.4-11.0 [facility] Comment on above: Order Comment: 215.2 Performed By: #### L 501.9985, L500.4050, L100.0500 ####[facility] [address] [place], [address] Comprehensive Metabolic Prof [facility] 04-14-2024 Albumin [Mass/Vol] 3.1 g/dL Low 3.2-5.0 [facility] Comment on above: Order Comment: 215.2 Performed By: #### L 501.9985, L500.4050, L100.0500 ####[facility] [address] [place], [address] Albumin/Globulin [Mass ratio] 1.0 {ratio} Normal 0.9-2.4 [facility] Comment on above: Order Comment: 215.2 Performed By: #### L 501.9985, L500.4050, L100.0500 ####[facility] [address] [place], [address] ALK P 115 U/L Normal 45-117 [facility] Comment on above: Order Comment: 215.2 Performed By: #### L 501.9985, L500.4050, L100.0500 ####[facility] [address] [place], [address] ALT [Catalytic activity/Vol] 17 U/L Normal 16-61 [facility] Comment on above: Order Comment: 215.2 Performed By: #### L 501.9985, L500.4050, L100.0500 ####[facility] [address] [place], [address] AST [Catalytic activity/Vol] 5 U/L Low 15-37 [facility] Comment on above: Order Comment: 215.2 Performed By: #### L 501.9985, L500.4050, L100.0500 ####[facility] [address] [place], [address] Bilirubin [Mass/Vol] 0.60 mg/dL Normal 0.20-1.00 [facility] Comment on above: Order Comment: 215.2 Result Comment: For patients on eltrombopag therapy, use of Dimension [place] TBIL is not recommended. Performed By: #### L 501.9985, L500.4050, L100.0500 ####[facility] [address] [place], [address] BUN/CRE 21.2 RATIO High 10-20 [facility] Comment on above: Order Comment: 215.2 Performed By: #### L 501.9985, L500.4050, L100.0500 ####[facility] [address] [place], [address] CA,Total 9.6 mg/dL Normal 8.5-10.1 [facility] Comment on above: Order Comment: 215.2 Performed By: #### L 501.9985, L500.4050, L100.0500 ####[facility] [address] [place], [address] Chloride [Moles/Vol] 108 mmol/L High 98-107 [facility] Comment on above: Order Comment: 215.2 Performed By: #### L 501.9985, L500.4050, L100.0500 ####[facility] [address] [place], [address] CO2 [Moles/Vol] 29.0 mmol/L Normal 21.0-32.0 [facility] Comment on above: Order Comment: 215.2 Performed By: #### L 501.9985, L500.4050, L100.0500 ####[facility] [address] [place], [address] Creatinine [Mass/Vol] 1.13 mg/dL Normal 0.70-1.30 [facility] Comment on above: Order Comment: 215.2 Result Comment: The validity of the calculated GFR GFRAA in patients over70 years has not been determined. Clinical correlation isessential. Performed By: #### L 501.9985, L500.4050, L100.0500 ####[facility] [address] [place], [address] EST GFR - AA 81 mL/min Normal >60 [facility] Comment on above: Order Comment: 215.2 Result Comment: Afri can Vietnamese GFR Calc Performed By: #### L 501.9985, L500.4050, L100.0500 ####[facility] [address] [place], [address] GAP 4 Low 5-15 [facility] Comment on above: Order Comment: 215.2 Performed By: #### L 501.9985, L500.4050, L100.0500 ####[facility] [address] [place], [address] GFR/1.73 sq M.predicted among non-blacks MDRD (S/P/Bld) [Vol rate/Area] 67 mL/min/{1.73_m2} Normal >60 [facility] Comment on above: Order Comment: 215.2 Result Comment: Non- GFR Calc Performed By: #### L 501.9985, L500.4050, L100.0500 ####[facility] [address] [place], [address] Globulin (S) [Mass/Vol] 3.0 g/dL Normal 2.2-4.2 [facility] Comment on above: Order Comment: 215.2 Performed By: #### L 501.9985, L500.4050, L100.0500 ####[facility] [address] [place], [address] Glucose [Mass/Vol] 128 mg/dL High 74-106 [facility] Comment on above: Order Comment: 215.2 Result Comment: Fast ing Glucose result greater than or equal to 126 mg/dLsuggests DIABETES MELLITUS per A.D.A. criteria. Performed By: #### L 501.9985, L500.4050, L100.0500 ####[facility] [address] [place], [address] Potassium [Moles/Vol] 4.2 mmol/L Normal 3.5-5.1 [facility] Comment on above: Order Comment: 215.2 Performed By: #### L 501.9985, L500.4050, L100.0500 ####[facility] [address] [place], [address] Sodium [Moles/Vol] 141 mmol/L Normal 136-145 [facility] Comment on above: Order Comment: 215.2 Performed By: #### L 501.9985, L500.4050, L100.0500 ####[facility] [address] [place], [address] T PROT 6.1 g/dL Low 6.4-8.2 [facility] Comment on above: Order Comment: 215.2 Performed By: #### L 501.9985, L500.4050, L100.0500 ####[facility] [address] [place], [address] Urea nitrogen [Mass/Vol] 24 mg/dL High 7-18 [facility] Comment on above: Order Comment: 215.2 Performed By: #### L 501.9985, L500.4050, L100.0500 ####[facility] [address] [place], [address] Hemoglobin A1con 04-14-2024 HbA1c (Bld) [Mass fraction] 6.5 % High 3.8-5.6 [facility] Comment on above: Order Comment: 215.2 Result Comment: Norm al < 5.7 % Prediabetic 5.7 - 6.4 % Diabetic >or= 6.5 % Please note range changes. Performed By: #### L 501.9985, L500.4050, L100.0500 ####[facility] [address] [place], [address] Urine Cultureon 04-11-2024 [facility] Culture exhibits no growth. Normal [facility] Comment on above: Performed By: #### L 400.0001, M100.2200, L100.0500 ####[facility] [address] [place], [address] CBC-Complete Blood Cnt No Di ffon 04-10-2024 Erythrocyte distribution width (RBC) [Ratio] 14.5 % Normal 11.6-14.6 [facility] Comment on above: Order Comment: 215-2 Performed By: #### L 400.0001, M100.2200, L100.0500 ####[facility] [address] [place], [address] Hematocrit (Bld) [Volume fraction] 41.3 % Normal 40-54 [facility] Comment on above: Order Comment: 215-2 Performed By: #### L 400.0001, M100.2200, L100.0500 ####[facility] [address] [place], [address] Hemoglobin (Bld) [Mass/Vol] 13.1 g/dL Normal 13.0-16. 5 [facility] Comment on above: Order Comment: 215-2 Performed By: #### L 400.0001, M100.2200, L100.0500 ####[facility] [address] [place], [address] MCH (RBC) [Entitic mass] 27.3 pg Normal 27.0-32.0 [facility] Comment on above: Order Comment: 215-2 Performed By: #### L 400.0001, M100.2200, L100.0500 ####[facility] [address] [place], [address] MCHC (RBC) [Mass/Vol] 31.7 g/dL Low 32-36 [facility] Comment on above: Order Comment: 215-2 Performed By: #### L 400.0001, M100.2200, L100.0500 ####[facility] [address] [place], [address] MCV (RBC) [Entitic vol] 86.0 fL Normal 80-94 [facility] Comment on above: Order Comment: 215-2 Performed By: #### L 400.0001, M100.2200, L100.0500 ####[facility] [address] [place], [address] Platelet mean volume (Bld) [Entitic vol] 9.4 fL Normal 6.2-12.0 [facility] Comment on above: Order Comment: 215-2 Performed By: #### L 400.0001, M100.2200, L100.0500 ####[facility] [address] [place], [address] Platelets (Bld) [#/Vol] 256 10*3/uL Normal 150-450 [facility] Comment on above: Order Comment: 215-2 Performed By: #### L 400.0001, M100.2200, L100.0500 ####[facility] [address] [place], [address] RBC (Bld) [#/Vol] 4.80 10*6/uL Normal 4.6-6.2 [facility] Comment on above: Order Comment: 215-2 Performed By: #### L 400.0001, M100.2200, L100.0500 ####[facility] [id number] [address] [place], [address] RDW SD 45.0 fl High 35.1-43.9 [facility] Comment on above: Order Comment: 215-2 Performed By: #### L 400.0001, M100.2200, L100.0500 ####[facility] [address] [place], [address] WBC (Bld) [#/Vol] 10.8 10*3/uL Normal 4.4-11.0 [facility] Comment on above: Order Comment: 215-2 Performed By: #### L 400.0001, M100.2200, L100.0500 ####[facility] [address] [place], [address] Urinalysis, Completeon 04-10 BACTERIA 0 SEEN Normal None Seen [facility] Comment on above: Order Comment: LEILA TER SPECIMEN Performed By: #### L 400.0001, M100.2200, L100.0500 ####[facility] [address] [place], [address] EPI,SQUAMOUS 0 SEEN Normal 0-5 [facility] Comment on above: Order Comment: LEILA TER SPECIMEN Performed By: #### L 400.0001, M100.2200, L100.0500 ####[facility] [address] [place], [address] Mucus Ql (Urine sed) 0 SEEN Normal [facility] Comment on above: Order Comment: LEILA TER SPECIMEN Performed By: #### L 400.0001, M100.2200, L100.0500 ####[facility] [address] [place], [address] RBC 0 SEEN Normal 0-5 [facility] Comment on above: Order Comment: LEILA TER SPECIMEN Performed By: #### L 400.0001, M100.2200, L100.0500 ####[facility] [address] [place], [address] WBC 0 SEEN Normal 0-5 [facility] Comment on above: Order Comment: LEILA TER SPECIMEN Performed By: #### L 400.0001, M100.2200, L100.0500 ####[facility] [address] [place], [address] CBC-Complete Blood Cnt No Di ffon 04-09-2024 Erythrocyte distribution width (RBC) [Ratio] 14.6 % Normal 11.6-14.6 [facility] Comment on above: Order Comment: 215.2 Performed By: #### L 100.0500 ####[facility] [address] [place], [address] Hematocrit (Bld) [Volume fraction] 39.6 % Low 40-54 [facility] Comment on above: Order Comment: 215.2 Performed By: #### L 100.0500 ####[facility] [address] [place], [address] Hemoglobin (Bld) [Mass/Vol] 12.4 g/dL Low 13.0-16. 5 [facility] Comment on above: Order Comment: 215.2 Performed By: #### L 100.0500 ####[facility] [address] [place], [address] MCH (RBC) [Entitic mass] 27.0 pg Normal 27.0-32.0 [facility] Comment on above: Order Comment: 215.2 Performed By: #### L 100.0500 ####[facility] [address] [place], [address] MCHC (RBC) [Mass/Vol] 31.3 g/dL Low 32-36 [facility] Comment on above: Order Comment: 215.2 Performed By: #### L 100.0500 ####[facility] [address] [place], [address] MCV (RBC) [Entitic vol] 86.3 fL Normal 80-94 [facility] Comment on above: Order Comment: 215.2 Performed By: #### L 100.0500 ####[facility] [address] [place], [address] Platelet mean volume (Bld) [Entitic vol] 9.4 fL Normal 6.2-12.0 [facility] Comment on above: Order Comment: 215.2 Performed By: #### L 100.0500 ####[facility] [address] [place], [address] Platelets (Bld) [#/Vol] 223 10*3/uL Normal 150-450 [facility] Comment on above: Order Comment: 215.2 Performed By: #### L 100.0500 ####[facility] [address] [place], [address] RBC (Bld) [#/Vol] 4.59 10*6/uL Low 4.6-6.2 [facility] Comment on above: Order Comment: 215.2 Performed By: #### L 100.0500 ####[facility] [address] [place], [address] RDW SD 45.5 fl High 35.1-43.9 [facility] Comment on above: Order Comment: 215.2 Performed By: #### L 100.0500 ####[facility] [address] [place], [address] WBC (Bld) [#/Vol] 11.9 10*3/uL High 4.4-11.0 [facility] Comment on above: Order Comment: 215.2 Performed By: #### L 100.0500 ####[facility] [address] [place], [address] CBC W/Diff, Automatedon 03-16-2023 Absolute Lymph 2.54 X10 3/uL Normal 0.83-4.51 [facility] Comment on above: Performed By: #### L 500.4050, L500.4100, L100.0100 ####[facility] [address] [place], [address] Absolute Neut 7.3 X10 3/uL Normal 2.0-7.7 [facility] Comment on above: Performed By: #### L 500.4050, L500.4100, L100.0100 ####[facility] [address] [place], [address] Basophils/100 WBC (Bld) 0.3 % Normal 0-1 [facility] Comment on above: Performed By: #### L 500.4050, L500.4100, L100.0100 ####[facility] [address] [place], [address] Eosinophils/100 WBC (Bld) 3.7 % Normal 0-5 [facility] Comment on above: Performed By: #### L 500.4050, L500.4100, L100.0100 ####[facility] [address] [place], [address] Erythrocyte distribution width (RBC) [Ratio] 14.6 % Normal 11.6-14.6 [facility] Comment on above: Performed By: #### L 500.4050, L500.4100, L100.0100 ####[facility] [address] [place], [address] Hematocrit (Bld) [Volume fraction] 40.4 % Normal 40-54 [facility] Comment on above: Performed By: #### L 500.4050, L500.4100, L100.0100 ####[facility] [address] [place], [address] Hemoglobin (Bld) [Mass/Vol] 12.7 g/dL Low 13.0-16. 5 [facility] Comment on above: Performed By: #### L 500.4050, L500.4100, L100.0100 ####[facility] [address] [place], [address] IG% 2.000 High 0.0-0.9 [facility] Comment on above: Result Comment: IG% - Immature Granulocytes (promyelocytes, myelocytes andmetamyelocytes) > 1% indicates that a LEFT SHIFT is Present. Performed By: #### L 500.4050, L500.4100, L100.0100 ####[facility] [address] [place], [address] Lymphocytes/100 WBC (Bld) 22.8 % Normal 19-41 [facility] Comment on above: Performed By: #### L 500.4050, L500.4100, L100.0100 ####[facility] [address] [place], [address] MCH (RBC) [Entitic mass] 27.3 pg Normal 27.0-32.0 [facility] Comment on above: Performed By: #### L 500.4050, L500.4100, L100.0100 ####[facility] [address] [place], [address] MCHC (RBC) [Mass/Vol] 31.4 g/dL Low 32-36 [facility] Comment on above: Performed By: #### L 500.4050, L500.4100, L100.0100 ####[facility] [address] [place], [address] MCV (RBC) [Entitic vol] 86.7 fL Normal 80-94 [facility] Comment on above: Performed By: #### L 500.4050, L500.4100, L100.0100 ####[facility] [address] [place], [address] Monocytes/100 WBC (Bld) 6.3 % Normal 0-10 [facility] Comment on above: Performed By: #### L 500.4050, L500.4100, L100.0100 ####[facility] [address] [place], [address] Neutrophils/100 WBC (Bld) 64.9 % Normal 47-70 [facility] Comment on above: Performed By: #### L 500.4050, L500.4100, L100.0100 ####[facility] [address] [place], [address] Nucleated RBC (Bld) [#/Vol] 0 10*3/uL Normal 0-5 [facility] Comment on above: Performed By: #### L 500.4050, L500.4100, L100.0100 ####[facility] [address] [place], [address] Platelet mean volume (Bld) [Entitic vol] 9.3 fL Normal 6.2-12.0 [facility] Comment on above: Performed By: #### L 500.4050, L500.4100, L100.0100 ####[facility] [address] [place], [address] Platelets (Bld) [#/Vol] 243 10*3/uL Normal 150-450 [facility] Comment on above: Performed By: #### L 500.4050, L500.4100, L100.0100 ####[facility] [address] [place], [address] RBC (Bld) [#/Vol] 4.66 10*6/uL Normal 4.6-6.2 [facility] Comment on above: Performed By: #### L 500.4050, L500.4100, L100.0100 ####[facility] [address] [place], [address] RDW SD 45.9 fl High 35.1-43.9 [facility] Comment on above: Performed By: #### L 500.4050, L500.4100, L100.0100 ####[facility] [address] [place], [address] WBC (Bld) [#/Vol] 11.2 10*3/uL High 4.4-11.0 [facility] Comment on above: Performed By: #### L 500.4050, L500.4100, L100.0100 ####[facility] [address] [place], [address] Comprehensive Metabolic Prof ilon 04-08-2024 Albumin [Mass/Vol] 3.1 g/dL Low 3.2-5.0 [facility] Comment on above: Performed By: #### L 500.4050, L500.4100, L100.0100 ####[facility] [address] [place], [address] Albumin/Globulin [Mass ratio] 1.1 {ratio} Normal 0.9-2.4 [facility] Comment on above: Performed By: #### L 500.4050, L500.4100, L100.0100 ####[facility] [address] [place], [address] ALK P 97 U/L Normal 45-117 [facility] Comment on above: Performed By: #### L 500.4050, L500.4100, L100.0100 ####[facility] [address] [place], [address] ALT [Catalytic activity/Vol] 18 U/L Normal 16-61 [facility] Comment on above: Performed By: #### L 500.4050, L500.4100, L100.0100 ####[facility] [address] [place], [address] AST [Catalytic activity/Vol] 7 U/L Low 15-37 [facility] Comment on above: Performed By: #### L 500.4050, L500.4100, L100.0100 ####[facility] [address] [place], [address] Bilirubin [Mass/Vol] 0.40 mg/dL Normal 0.20-1.00 [facility] Comment on above: Result Comment: For patients on eltrombopag therapy, use of Dimension [place] TBIL is not recommended. Performed By: #### L 500.4050, L500.4100, L100.0100 ####[facility] [address] [place], [address] BUN/CRE 29.1 RATIO High 10-20 [facility] Comment on above: Performed By: #### L 500.4050, L500.4100, L100.0100 ####[facility] [address] [place], [address] CA,Total 9.3 mg/dL Normal 8.5-10.1 [facility] Comment on above: Performed By: #### L 500.4050, L500.4100, L100.0100 ####[facility] [address] [place], [address] Chloride [Moles/Vol] 106 mmol/L Normal 98-107 [facility] Comment on above: Performed By: #### L 500.4050, L500.4100, L100.0100 ####[facility] [address] [place], [address] CO2 [Moles/Vol] 29.0 mmol/L Normal 21.0-32.0 [facility] Comment on above: Performed By: #### L 500.4050, L500.4100, L100.0100 ####[facility] [address] [place], [address] Creatinine [Mass/Vol] 1.10 mg/dL Normal 0.70-1.30 [facility] Comment on above: Result Comment: The validity of the calculated GFR GFRAA in patients over70 years has not been determined. Clinical correlation isessential. Performed By: #### L 500.4050, L500.4100, L100.0100 ####[facility] [address] [place], [address] EST GFR - AA 84 mL/min Normal >60 [facility] Comment on above: Result Comment: Afri can Vietnamese GFR Calc Performed By: #### L 500.4050, L500.4100, L100.0100 ####[facility] [address] [place], [address] GAP 5 Normal 5-15 [facility] Comment on above: Performed By: #### L 500.4050, L500.4100, L100.0100 ####[facility] [address] [place], [address] GFR/1.73 sq M.predicted among non-blacks MDRD (S/P/Bld) [Vol rate/Area] 69 mL/min/{1.73_m2} Normal >60 [facility] Comment on above: Result Comment: Non- GFR Calc Performed By: #### L 500.4050, L500.4100, L100.0100 ####[facility] [address] [place], [address] Globulin (S) [Mass/Vol] 2.8 g/dL Normal 2.2-4.2 [facility] Comment on above: Performed By: #### L 500.4050, L500.4100, L100.0100 ####[facility] [address] [place], [address] Glucose [Mass/Vol] 133 mg/dL High 74-106 [facility] Comment on above: Result Comment: Fast ing Glucose result greater than or equal to 126 mg/dLsuggests DIABETES MELLITUS per A.D.A. criteria. Performed By: #### L 500.4050, L500.4100, L100.0100 ####[facility] [address] [place], [address] Potassium [Moles/Vol] 3.8 mmol/L Normal 3.5-5.1 [facility] Comment on above: Performed By: #### L 500.4050, L500.4100, L100.0100 ####[facility] [address] [place], [address] Sodium [Moles/Vol] 140 mmol/L Normal 136-145 [facility] Comment on above: Performed By: #### L 500.4050, L500.4100, L100.0100 ####[facility] [address] [place], [address] T PROT 5.9 g/dL Low 6.4-8.2 [facility] Comment on above: Performed By: #### L 500.4050, L500.4100, L100.0100 ####[facility] [address] [place], [address] Urea nitrogen [Mass/Vol] 32 mg/dL High 7-18 [facility] Comment on above: Performed By: #### L 500.4050, L500.4100, L100.0100 ####[facility] [address] [place], [address] Lipid Profileon 04-08-2024 Cholesterol [Mass/Vol] 100 mg/dL Normal 200 [facility] Comment on above: Result Comment: <200 mg/dL Desirable 200-240 mg/dL Borderline >240 mg/dL High Risk Performed By: #### L 500.4050, L500.4100, L100.0100 ####[facility] [address] [place], [address] Cholesterol in HDL [Mass/Vol] 34 mg/dL Low [facility] Comment on above: Result Comment: The drugs N-Acetylcysteine and Metamizole may falselydepress this assay. Reference Range HDL <40 mg/dL Low HDL Cholesterol HDL >or= 60 mg/dL High HDL Cholesterol Performed By: #### L 500.4050, L500.4100, L100.0100 ####[facility] [address] [place], [address] Cholesterol in LDL [Mass/Vol] 36 mg/dL Normal 0-130 [facility] Comment on above: Performed By: #### L 500.4050, L500.4100, L100.0100 ####[facility] [address] [place], [address] Cholesterol in VLDL [Mass/Vol] 30 mg/dL Normal 5-40 [facility] Comment on above: Performed By: #### L 500.4050, L500.4100, L100.0100 ####[facility] [address] [place], [address] Triglyceride [Mass/Vol] 148 mg/dL Normal [facility] Comment on above: Result Comment: The drugs N-Acetylcysteine and Metamizole may falselydepress this assay.Serum Triglycerides Reference Interval Normal <150 mg/dL Borderline high 150 - 199 mg/dL High 200 - 499 mg/dL Very High > or = 500 mg/dL Performed By: #### L 500.4050, L500.4100, L100.0100 ####[facility] [address] [place], [place], [address] Cardiology Visit Reporton Cardiology Visit Report Normal [facility] Protime w/INR Fingerstickon 03-02-2024 INR Coag (PPP) [Relative time] 1.7 {INR} Normal [facility] Comment on above: Result Comment: Crit ical Value > 4.0 Performed By: #### L 9200.0000 ####[facility] [address] [place], [address] Protime Coagsen 18.4 SEC High 11.7-14.9 [facility] Comment on above: Performed By: #### L 9200.0000 ####[facility] [address] [place], [address] Laboratory - CoagulationOrde red By: Walter Becker on 10-25-2023 INR Coag (Bld) [Relative time] 3.2 {INR} [facility] PT Coag (PPP) [Time] 32.9 s 11.7-14.9 [facility] Laboratory - CoagulationOrde red By: Walter Becker on 10-16-2023 INR Coag (Bld) [Relative time] 1.9 {INR} [facility] PT Coag (PPP) [Time] 21.6 s 11.7-14.9 [facility] Basophil percentageOrdered B y: Walter Becker on 10-08-2023 Cholesterol [Mass/Vol] 107 mg/dL <200 [facility] Comment on above: <200 mg/dL Desirable 200-240 mg/dL Borderline >240 mg/dL High Risk Triglyceride [Mass/Vol] 133 mg/dL <199 [facility] Comment on above: The drugs N-Acetylcy steine and Metamizole may falsely depress this assay.Serum Triglycerides Reference Interval Normal <150 mg/dL Borderline high 150 - 199 mg/dL High 200 - 499 mg/dL Very High > or = 500 mg/dL Laboratory - Chemistry and C hemistry - challengeOrdered By: Walter Becker on 10-08-2023 ALT [Catalytic activity/Vol] 18 U/L 16-61 [facility] Cholesterol in HDL [Mass/Vol] 35 mg/dL >40 [facility] Comment on above: The drugs N-Acetylcy steine and Metamizole may falsely depress this assay. Reference Range HDL <40 mg/dL Low HDL Cholesterol HDL >or= 60 mg/dL High HDL Cholesterol Cholesterol in LDL [Mass/Vol] 45 mg/dL 0-130 [facility] CK [Catalytic activity/Vol] 59 U/L 39-308 [facility] No Panel InformationOrdered By: Walter Becker on 10-08-2023 VLDL Cholesterol 27 mg/dL 5-40 [facility] Thin prep Papanicolaou smear with manual screeningOrdered By: Walter Becker on 10-08-2023 Thin prep Papanicolaou smear with manual screening 10 U/L 15-37 [facility] Capillary blood internationa l normalized ratio (INR)Ordered By: Walter Becker on 10-04-2023 INR Coag (BldC) [Relative time] 2.2 [facility] Comment on above: Critical Value > 4.0 Whole blood prothrombin time Ordered By: Walter Becker on 10-04-2023 PT Coag (Bld) [Time] 22.6 s 11.7-14.9 [facility] Capillary blood internationa l normalized ratio (INR)Ordered By: Walter Becker on 10-01-2023 INR Coag (BldC) [Relative time] 1.9 [facility] Comment on above: Critical Value > 4.0 Whole blood prothrombin time Ordered By: Walter Becker on 10-01-2023 PT Coag (Bld) [Time] 19.9 s 11.7-14.9 [facility] Basophil percentageOrdered B y: Walter Becker on 09-25-2023 Bilirubin [Mass/Vol] 0.30 mg/dL 0.20-1.00 [facility] Comment on above: For patients on eltr ombopag therapy, use of Dimension [place] TBIL is not recommended. Chloride [Moles/Vol] 105 mmol/L 98-107 [facility] Glucose [Mass/Vol] 125 mg/dL 74-106 [facility] Comment on above: Fasting Glucose resu lt from 100 to 125 mg/dL suggests IMPAIRED HOMEOSTASIS per A.D.A. criteria. Hemoglobin (Bld) [Mass/Vol] 12.6 g/dL 13.0-16. 5 [facility] Potassium [Moles/Vol] 4.2 mmol/L 3.5-5.1 [facility] Protein [Mass/Vol] 6.2 g/dL 6.4-8.2 [facility] Sodium [Moles/Vol] 140 mmol/L 136-145 [facility] WBC (Bld) [#/Vol] 10.6 10*3/uL 4.4-11.0 [facility] Determination of erythrocyte mean corpuscular volume (MCV)Ordered By: Walter Becker on 09-25-2023 MCV (RBC) [Entitic vol] 85.8 fL 80-94 [facility] Erythrocyte distribution wid th ratioOrdered By: Walter Becker on 09-25-2023 Erythrocyte distribution width (RBC) [Ratio] 13.7 % 11.6-14.6 [facility] Erythrocyte distribution wid th standard deviationOrdered By: Walter Becker on 09-25-2023 Erythrocyte distribution width (RBC) [Entitic vol] 42.4 fL 35.1-43.9 [facility] Hematocrit Auto (Bld) [Volum e fraction]Ordered By: Walter Becker on 09-25-2023 Hematocrit (Bld) [Volume fraction] 39.4 % 40-54 [facility] Laboratory - Chemistry and C hemistry - challengeOrdered By: Walter Becker on 09-25-2023 Albumin/Globulin [Mass ratio] 1.1 {ratio} 0.9-2.4 [facility] ALP [Catalytic activity/Vol] 107 U/L 45-117 [facility] ALT [Catalytic activity/Vol] 19 U/L 16-61 [facility] CO2 [Moles/Vol] 29.0 mmol/L 21.0-32.0 [facility] Globulin (S) [Mass/Vol] 3.0 g/dL 2.2-4.2 [facility] Urea nitrogen/Creatinine [Mass ratio] 29.8 mg/mg 10-20 [facility] Laboratory - CoagulationOrde red By: Walter Becker on 09-25-2023 INR Coag (Bld) [Relative time] 2.8 {INR} [facility] PT Coag (PPP) [Time] 28.9 s 11.7-14.9 [facility] Laboratory - Hematology and Cell countsOrdered By: Walter Becker on 09-25-2023 MCH (RBC) [Entitic mass] 27.5 pg 27.0-32.0 [facility] MCHC (RBC) [Mass/Vol] 32.0 g/dL 32-36 [facility] Platelet mean volume (Bld) [Entitic vol] 9.9 fL 6.2-12.0 [facility] Platelets (Bld) [#/Vol] 235 10*3/uL 150-450 [facility] No Panel InformationOrdered By: Walter Becker on 09-25-2023 Estimated GFR (MDRD) Amer 75 mL/min >60 [facility] Comment on above: GFR Calc Estimated GFR (MDRD) Non-Af Amer 62 mL/min >60 [facility] Comment on above: Non- GFR Calc RBC Auto (Bld) [#/Vol]Ordere d By: Walter Becker on 09-25-2023 RBC (Bld) [#/Vol] 4.59 10*6/uL 4.6-6.2 [facility] Serum or plasma calcium antoine urement (mass/volume)Ordered By: Walter Becker on 09-25-2023 Calcium [Mass/Vol] 9.6 mg/dL 8.5-10.1 [facility] Serum or plasma creatinine m easurement (mass/volume)Ordered By: Walter Becker on 09-25-2023 Creatinine [Mass/Vol] 1.21 mg/dL 0.70-1.30 [facility] Comment on above: The validity of the calculated GFR & GFRAA in patients over 70 years has not been determined. Clinical correlation is essential. Serum or plasma urea nitroge n measurement (mass/volume)Ordered By: Walter Becker on 09-25-2023 Urea nitrogen [Mass/Vol] 36 mg/dL 7-18 [facility] Thin prep Papanicolaou smear with manual screeningOrdered By: Walter Becker on 09-25-2023 Thin prep Papanicolaou smear with manual screening 3.2 g/dL 3.2-5.0 [facility] Thin prep Papanicolaou smear with manual screening 11 U/L 15-37 [facility] Thin prep Papanicolaou smear with manual screening 6 5-15 [facility] Laboratory - CoagulationOrde red By: Walter Becker on 09-18-2023 INR Coag (Bld) [Relative time] 1.6 {INR} [facility] PT Coag (PPP) [Time] 18.7 s 11.7-14.9 [facility] Capillary blood internationa l normalized ratio (INR)Ordered By: Walter Becker on 09-13-2023 INR Coag (BldC) [Relative time] 3.1 [facility] Comment on above: Critical Value > 4.0 Whole blood prothrombin time Ordered By: Walter Becker on 09-13-2023 PT Coag (Bld) [Time] 33.3 s 11.7-14.9 [facility] Capillary blood internationa l normalized ratio (INR)Ordered By: Walter Becker on 09-12-2023 INR Coag (BldC) [Relative time] 1.7 [facility] Comment on above: Critical Value > 4.0 Whole blood prothrombin time Ordered By: Walter Becker on 09-12-2023 PT Coag (Bld) [Time] 19.2 s 11.7-14.9 [facility] Capillary blood internationa l normalized ratio (INR)Ordered By: Walter Becker on 09-09-2023 INR Coag (BldC) [Relative time] 2.9 [facility] Comment on above: Critical Value > 4.0 Whole blood prothrombin time Ordered By: Walter Becker on 09-09-2023 PT Coag (Bld) [Time] 31.5 s 11.7-14.9 [facility] Laboratory - CoagulationOrde red By: Walter Becker on 08-26-2023 INR Coag (Bld) [Relative time] 2.2 {INR} [facility] PT Coag (PPP) [Time] 24.7 s 11.7-14.9 [facility] Capillary blood internationa l normalized ratio (INR)Ordered By: Walter Becker on 08-19-2023 INR Coag (BldC) [Relative time] 2.7 [facility] Comment on above: Critical Value > 4.0 Whole blood prothrombin time Ordered By: Walter Becker on 08-19-2023 PT Coag (Bld) [Time] 29.2 s 11.7-14.9 [facility] Capillary blood internationa l normalized ratio (INR)Ordered By: Walter Becker on 08-12-2023 INR Coag (BldC) [Relative time] 2.5 [facility] Comment on above: Critical Value > 4.0 Whole blood prothrombin time Ordered By: Walter Becker on 08-12-2023 PT Coag (Bld) [Time] 26.7 s 11.7-14.9 [facility] Capillary blood internationa l normalized ratio (INR)Ordered By: Walter Becker on 08-05-2023 INR Coag (BldC) [Relative time] 1.9 [facility] Comment on above: Critical Value > 4.0 Whole blood prothrombin time Ordered By: Walter Becker on 08-05-2023 PT Coag (Bld) [Time] 20.7 s 11.7-14.9 [facility] Laboratory - CoagulationOrde red By: Walter Becker on 07-29-2023 INR Coag (Bld) [Relative time] 2.3 {INR} [facility] Comment on above: Critical Value > 4.0 Whole blood prothrombin time Ordered By: Walter Becker on 07-29-2023 PT Coag (Bld) [Time] 25.0 s 11.7-14.9 [facility] Laboratory - CoagulationOrde red By: Walter Becker on 07-22-2023 INR Coag (Bld) [Relative time] 2.0 {INR} [facility] Comment on above: Critical Value > 4.0 Whole blood prothrombin time Ordered By: Walter Becker on 07-22-2023 PT Coag (Bld) [Time] 22.4 s 11.7-14.9 [facility] Laboratory - CoagulationOrde red By: Walter Becker on 07-19-2023 INR Coag (Bld) [Relative time] 3.4 {INR} [facility] Comment on above: Critical Value > 4.0 Whole blood prothrombin time Ordered By: Walter Becker on 07-19-2023 PT Coag (Bld) [Time] 36.2 s 11.7-14.9 [facility] - CoagulationOrde red By: Walter Becker on 07-17-2023 INR Coag (Bld) [Relative time] 3.0 {INR} [facility] Comment on above: Critical Value > 4.0 Whole blood prothrombin time Ordered By: Walter Becker on 07-17-2023 PT Coag (Bld) [Time] 32.2 s 11.7-14.9 [facility] - CoagulationOrde red By: Walter Becker on 07-10-2023 INR Coag (Bld) [Relative time] 2.3 {INR} [facility] Comment on above: Critical Value > 4.0 Whole blood prothrombin time Ordered By: Walter Becker on 07-10-2023 PT Coag (Bld) [Time] 25.4 s 11.7-14.9 [facility] - CoagulationOrde red By: Walter Becker on 07-03-2023 INR Coag (Bld) [Relative time] 1.5 {INR} [facility] Comment on above: Critical Value > 4.0 Whole blood prothrombin time Ordered By: Walter Becker on 07-03-2023 PT Coag (Bld) [Time] 16.5 s 11.7-14.9 [facility] - CoagulationOrde red By: Walter Becker on 06-26-2023 INR Coag (Bld) [Relative time] 2.3 {INR} [facility] Comment on above: Critical Value > 4.0 Whole blood prothrombin time Ordered By: Walter Becker on 06-26-2023 PT Coag (Bld) [Time] 24.7 s 11.7-14.9 [facility] - CoagulationOrde red By: Walter Becker on 06-25-2023 INR Coag (Bld) [Relative time] 3.2 {INR} [facility] Comment on above: Critical Value > 4.0 Whole blood prothrombin time Ordered By: Walter Becker on 06-25-2023 PT Coag (Bld) [Time] 34.3 s 11.7-14.9 [facility] - CoagulationOrde red By: Walter Becker on 06-24-2023 INR Coag (Bld) [Relative time] 3.4 {INR} [facility] Comment on above: Critical Value > 4.0 Whole blood prothrombin time Ordered By: Walter Becker on 06-24-2023 PT Coag (Bld) [Time] 36.4 s 11.7-14.9 [facility] - CoagulationOrde red By: Walter Becker on 06-17-2023 INR Coag (Bld) [Relative time] 2.4 {INR} [facility] Comment on above: Critical Value > 4.0 Whole blood prothrombin time Ordered By: Walter Becker on 06-17-2023 PT Coag (Bld) [Time] 26.1 s 11.7-14.9 [facility] - CoagulationOrde red By: Walter Becker on 06-10-2023 INR Coag (Bld) [Relative time] 1.4 {INR} [facility] Comment on above: Critical Value > 4.0 Whole blood prothrombin time Ordered By: Walter Becker on 06-10-2023 PT Coag (Bld) [Time] 15.9 s 11.7-14.9 [facility] Glucose Glucometer (BldC) [M ass/Vol]Ordered By: Kee Merritt on 06-03-2023 Glucose [Mass/Vol] 130 mg/dL 74-106 [facility] Comment on above: MANAGEMENT OF PATIEN T CARE PER NURSING PROTOCOL Laboratory - CoagulationOrde red By: Walter Becker on 05-20-2023 INR Coag (Bld) [Relative time] 2.6 {INR} [facility] Comment on above: Critical Value > 4.0 No Panel InformationOrdered By: Walter Becker on 05-20-2023 2.6 [facility] Whole blood prothrombin time Ordered By: Walter Becker on 05-20-2023 PT Coag (Bld) [Time] 27.6 s 11.7-14.9 [facility] Basophil percentageOrdered B y: Walter Becker on 05-15-2023 Basophil percentage 0 SEEN /hpf 0-5 [facility] Basophil percentage 114 mg/dL 74-106 [facility] Basophil percentage 5.9 g/dL 6.4-8.2 [facility] Basophil percentage 0.40 mg/dL 0.20-1.00 [facility] Basophil percentage 140 mmol/L 136-145 [facility] Basophil percentage 4.1 mmol/L 3.5-5.1 [facility] Basophil percentage 105 mmol/L 98-107 [facility] Basophils (Bld) [#/Vol] 10.4 10*3/uL 4.4-11.0 [facility] Bilirubin [Mass/Vol] 0.40 mg/dL 0.20-1.00 [facility] Comment on above: For patients on eltr ombopag therapy, use of Dimension [place] TBIL is not recommended. Chloride [Moles/Vol] 105 mmol/L 98-107 [facility] Glucose [Mass/Vol] 114 mg/dL 74-106 [facility] Comment on above: Fasting Glucose resu lt from 100 to 125 mg/dL suggests IMPAIRED HOMEOSTASIS per A.D.A. criteria. Potassium [Moles/Vol] 4.1 mmol/L 3.5-5.1 [facility] Protein [Mass/Vol] 5.9 g/dL 6.4-8.2 [facility] Sodium [Moles/Vol] 140 mmol/L 136-145 [facility] WBC (Bld) [#/Vol] 10.4 10*3/uL 4.4-11.0 [facility] Bilirubin Test strip Ql (U)O rdered By: Walter Becker on 05-15-2023 Bilirubin Ql (U) Negative Negative [facility] Blood erythrocytes count (nu mber/volume)Ordered By: Walter Becker on 05-15-2023 RBC (Bld) [#/Vol] 4.37 10*6/uL 4.6-6.2 [facility] Blood hemoglobin measurement (mass/volume)Ordered By: Walter Becker on 05-15-2023 Hemoglobin (Bld) [Mass/Vol] 11.6 g/dL 13.0-16. 5 [facility] Blood platelet mean volumeOr dered By: Walter Becker on 05-15-2023 Platelet mean volume (Bld) [Entitic vol] 9.4 fL 6.2-12.0 [facility] Culture, urineOrdered By: Horner on 05-15-2023 Bacteria identified Cx Nom (U) Culture exhibits no growth. [facility] Determination of erythrocyte mean corpuscular volume (MCV)Ordered By: Walter Becker on 05-15-2023 MCV (RBC) [Entitic vol] 84.7 fL 80-94 [facility] Hematocrit Auto (Bld) [Volum e fraction]Ordered By: Walter Becker on 05-15-2023 Hematocrit (Bld) [Volume fraction] 37.0 % 40-54 [facility] Ketones Test strip Ql (U)Ord ered By: Walter Becker on 05-15-2023 Ketones Ql (U) Negative Negative [facility] - Chemistry and C hemistry - challengeOrdered By: Walter Becker on 05-15-2023 ALP [Catalytic activity/Vol] 97 U/L 45-117 [facility] ALT [Catalytic activity/Vol] 21 U/L 16-61 [facility] CO2 [Moles/Vol] 28.0 mmol/L 21.0-32.0 [facility] Globulin (S) [Mass/Vol] 3.0 g/dL 2.2-4.2 [facility] Urea nitrogen/Creatinine [Mass ratio] 30.7 mg/mg 10-20 [facility] - Hematology and Cell countsOrdered By: Walter Becker on 05-15-2023 Erythrocyte distribution width (RBC) [Entitic vol] 43.3 fL 35.1-43.9 [facility] Erythrocyte distribution width (RBC) [Ratio] 14.1 % 11.6-14.6 [facility] MCH (RBC) [Entitic mass] 26.5 pg 27.0-32.0 [facility] MCHC Auto (RBC) [Mass/Vol]Or dered By: Walter Becker on 05-15-2023 MCHC (RBC) [Mass/Vol] 31.4 g/dL 32-36 [facility] Mucus LM Ql (Urine sed)Order ed By: Walter Becker on 05-15-2023 Mucus Ql (Urine sed) 0 SEEN /hpf [facility] Nitrite Test strip Ql (U)Ord ered By: Walter Becker on 05-15-2023 Nitrite Ql (U) Negative Negative [facility] No Panel InformationOrdered By: Walter Becker on 05-15-2023 Estimated GFR (MDRD) Amer 96 mL/min >60 [facility] Comment on above: GFR Calc Estimated GFR (MDRD) Non-Af Amer 79 mL/min >60 [facility] Comment on above: Non- GFR Calc 26.5 pg 27.0-32.0 [facility] 14.1 % 11.6-14.6 [facility] 43.3 fl 35.1-43.9 [facility] 79 mL/min >60 [facility] 96 mL/min >60 [facility] 30.7 RATIO 10-20 [facility] 3.0 g/dL 2.2-4.2 [facility] 97 U/L 45-117 [facility] 21 U/L 16-61 [facility] 28.0 mmol/L 21.0-32.0 [facility] Platelets bldOrdered By: Crystal Becker on 05-15-2023 Platelets (Bld) [#/Vol] 256 10*3/uL 150-450 [facility] Protein Test strip Ql (U)Ord ered By: Walter Becker on 05-15-2023 Protein Ql (U) Negative Negative [facility] Serum or plasma albumin antoine urement (mass/volume)Ordered By: Walter Becker on 05-15-2023 Albumin [Mass/Vol] 2.9 g/dL 3.2-5.0 [facility] Serum or plasma albumin/glob ulin mass ratioOrdered By: Walter Becker on 05-15-2023 Albumin/Globulin [Mass ratio] 1.0 {ratio} 0.9-2.4 [facility] Serum or plasma calcium antoine urement (mass/volume)Ordered By: Walter Becker on 05-15-2023 Calcium [Mass/Vol] 8.8 mg/dL 8.5-10.1 [facility] Serum or plasma creatinine m easurement (mass/volume)Ordered By: Walter Becker on 05-15-2023 Creatinine [Mass/Vol] 0.98 mg/dL 0.70-1.30 [facility] Comment on above: The validity of the calculated GFR & GFRAA in patients over 70 years has not been determined. Clinical correlation is essential. Serum or plasma urea nitroge n measurement (mass/volume)Ordered By: Walter Becker on 05-15-2023 Urea nitrogen [Mass/Vol] 30 mg/dL 7-18 [facility] Squamous epithelial cells de tection in urine sediment by light microscopyOrdered By: Walter Becker on 05-15-2023 Epithelial cells.squamous LM Ql (Urine sed) 0 SEEN /hpf 0-5 [facility] Thin prep Papanicolaou smear with manual screeningOrdered By: Walter Becker on 05-15-2023 Thin prep Papanicolaou smear with manual screening 9 U/L 15-37 [facility] Thin prep Papanicolaou smear with manual screening 7 5-15 [facility] Urine blood detectionOrdered By: Walter Becker on 05-15-2023 RBC Ql (U) Negative Negative [facility] RBC Ql (U) 0 SEEN /hpf 0-5 [facility] Urine clarityOrdered By: Crystal Becker on 05-15-2023 Clarity (U) Clear Clear [facility] Urine color determinationOrd ered By: Walter Becker on 05-15-2023 Color (U) Yellow Yellow [facility] Urine glucose detectionOrder ed By: Walter Becker on 05-15-2023 Glucose Ql (U) Normal mg/dl Normal [facility] Urine leukocyte esterase det ection by dipstickOrdered By: Walter Becker on 05-15-2023 Leukocyte esterase Test strip Ql (U) Negative Negative [facility] Urine pHOrdered By: Walter floyd on 05-15-2023 pH (U) 5.0 [pH] 5.0 - 8.0 [facility] Urine sediment bacteria coun t by microscopy (number/high power field)Ordered By: Walter Becker on 05-15-2023 Bacteria LM.HPF (Urine sed) [#/Area] 0 /[HPF] None Seen [facility] Urine specific gravity measu rementOrdered By: Walter Becker on 05-15-2023 Specific gravity (U) [Rel density] 1.010 1.002-1.03 0 [facility] Urobilinogen Auto test strip Ql (U)Ordered By: Walter Becker on 05-15-2023 Urobilinogen Ql (U) Normal mg/dl Normal [facility] Basophil percentageOrdered B y: Walter Becker on 05-06-2023 Basophil percentage 135 mg/dL 74-106 [facility] Basophil percentage 5.9 g/dL 6.4-8.2 [facility] Basophil percentage 0.40 mg/dL 0.20-1.00 [facility] Basophil percentage 140 mmol/L 136-145 [facility] Basophil percentage 3.7 mmol/L 3.5-5.1 [facility] Basophil percentage 106 mmol/L 98-107 [facility] Basophils (Bld) [#/Vol] 9.4 10*3/uL 4.4-11.0 [facility] Bilirubin [Mass/Vol] 0.40 mg/dL 0.20-1.00 [facility] Comment on above: For patients on eltr ombopag therapy, use of Dimension [place] TBIL is not recommended. Chloride [Moles/Vol] 106 mmol/L 98-107 [facility] Glucose [Mass/Vol] 135 mg/dL 74-106 [facility] Comment on above: Fasting Glucose resu lt greater than or equal to 126 mg/dL suggests DIABETES MELLITUS per A.D.A. criteria. Potassium [Moles/Vol] 3.7 mmol/L 3.5-5.1 [facility] Protein [Mass/Vol] 5.9 g/dL 6.4-8.2 [facility] Sodium [Moles/Vol] 140 mmol/L 136-145 [facility] WBC (Bld) [#/Vol] 9.4 10*3/uL 4.4-11.0 [facility] Blood erythrocytes count (nu mber/volume)Ordered By: Walter Becker on 05-06-2023 RBC (Bld) [#/Vol] 4.49 10*6/uL 4.6-6.2 [facility] Blood hemoglobin measurement (mass/volume)Ordered By: Walter Becker on 05-06-2023 Hemoglobin (Bld) [Mass/Vol] 12.0 g/dL 13.0-16. 5 [facility] Blood platelet mean volumeOr dered By: Walter Becker on 05-06-2023 Platelet mean volume (Bld) [Entitic vol] 9.5 fL 6.2-12.0 [facility] Determination of erythrocyte mean corpuscular volume (MCV)Ordered By: Walter Becker on 05-06-2023 MCV (RBC) [Entitic vol] 85.7 fL 80-94 [facility] Hematocrit Auto (Bld) [Volum e fraction]Ordered By: Walter Becker on 05-06-2023 Hematocrit (Bld) [Volume fraction] 38.5 % 40-54 [facility] INR in Blood by Coagulation assayOrdered By: Walter Becker on 05-06-2023 INR Coag (Bld) [Relative time] 2.5 {INR} [facility] - Chemistry and C hemistry - challengeOrdered By: Walter Becker on 05-06-2023 ALP [Catalytic activity/Vol] 93 U/L 45-117 [facility] ALT [Catalytic activity/Vol] 23 U/L - [facility] CO2 [Moles/Vol] 29.0 mmol/L 21.0-32.0 [facility] Globulin (S) [Mass/Vol] 2.9 g/dL 2.2-4.2 [facility] Urea nitrogen/Creatinine [Mass ratio] 25.8 mg/mg 10- [facility] - CoagulationOrde red By: Walter Becker on 05-06-2023 PT Coag (PPP) [Time] 27.5 s 11.7-14.9 [facility] - Hematology and Cell countsOrdered By: Walter Becker on 05-06-2023 Erythrocyte distribution width (RBC) [Entitic vol] 44.4 fL 35.1-43.9 [facility] Erythrocyte distribution width (RBC) [Ratio] 14.2 % 11.6-14.6 [facility] MCH (RBC) [Entitic mass] 26.7 pg 27.0-32.0 [facility] MCHC Auto (RBC) [Mass/Vol]Or dered By: Walter Becker on 05-06-2023 MCHC (RBC) [Mass/Vol] 31.2 g/dL 32-36 [facility] No Panel InformationOrdered By: Walter Becker on 05-06-2023 Estimated GFR (MDRD) Amer 102 mL/min >60 [facility] Comment on above: GFR Calc Estimated GFR (MDRD) Non-Af Amer 84 mL/min >60 [facility] Comment on above: Non- GFR Calc 26.7 pg 27.0-32.0 [facility] 14.2 % 11.6-14.6 [facility] 44.4 fl 35.1-43.9 [facility] 27.5 SECONDS 11.7-14.9 [facility] 84 mL/min >60 [facility] 102 mL/min >60 [facility] 25.8 RATIO 05-03 [facility] 2.9 g/dL 2.2-4.2 [facility] 93 U/L 45-117 [facility] 23 U/L [facility] 29.0 mmol/L 21.0-32.0 [facility] Platelets bldOrdered By: Crystal Becker on 05-06-2023 Platelets (Bld) [#/Vol] 238 10*3/uL 150-450 [facility] Serum or plasma albumin antoine urement (mass/volume)Ordered By: Walter Becker on 05-06-2023 Albumin [Mass/Vol] 3.0 g/dL 3.2-5.0 [facility] Serum or plasma albumin/glob ulin mass ratioOrdered By: Walter Becker on 05-06-2023 Albumin/Globulin [Mass ratio] 1.0 {ratio} 0.9-2.4 [facility] Serum or plasma calcium antoine urement (mass/volume)Ordered By: Walter Becker on 05-06-2023 Calcium [Mass/Vol] 9.1 mg/dL 8.5-10.1 [facility] Serum or plasma creatinine m easurement (mass/volume)Ordered By: Walter Becker on 05-06-2023 Creatinine [Mass/Vol] 0.93 mg/dL 0.70-1.30 [facility] Comment on above: The validity of the calculated GFR & GFRAA in patients over 70 years has not been determined. Clinical correlation is essential. Serum or plasma urea nitroge n measurement (mass/volume)Ordered By: Walter Becker on 05-06-2023 Urea nitrogen [Mass/Vol] 24 mg/dL 7-18 [facility] Thin prep Papanicolaou smear with manual screeningOrdered By: Walter Becker on 05-06-2023 Thin prep Papanicolaou smear with manual screening 10 U/L 15-37 [facility] Thin prep Papanicolaou smear with manual screening 5 5-15 [facility] - CoagulationOrde red By: Walter Becker on 04-29-2023 INR Coag (Bld) [Relative time] 2.8 {INR} [facility] Comment on above: Critical Value > 4.0 No Panel InformationOrdered By: Walter Becker on 04-29-2023 2.8 [facility] Whole blood prothrombin time Ordered By: Walter Becker on 04-29-2023 PT Coag (Bld) [Time] 29.6 s 11.7-14.9 [facility] - CoagulationOrde red By: Walter Becker on 04-15-2023 INR Coag (Bld) [Relative time] 2.5 {INR} [facility] Comment on above: Critical Value > 4.0 No Panel InformationOrdered By: Walter Becker on 04-15-2023 2.5 [facility] Whole blood prothrombin time Ordered By: Walter Becker on 04-15-2023 PT Coag (Bld) [Time] 27.3 s 11.7-14.9 [facility] Basophil percentageOrdered B y: Walter Becker on 04-09-2023 Basophil percentage 115 mg/dL 74-106 [facility] Basophil percentage 5.8 g/dL 6.4-8.2 [facility] Basophil percentage 0.40 mg/dL 0.20-1.00 [facility] Basophil percentage 141 mmol/L 136-145 [facility] Basophil percentage 3.9 mmol/L 3.5-5.1 [facility] Basophil percentage 106 mmol/L 98-107 [facility] Basophils (Bld) [#/Vol] 10.2 10*3/uL 4.4-11.0 [facility] Bilirubin [Mass/Vol] 0.40 mg/dL 0.20-1.00 [facility] Comment on above: For patients on eltr ombopag therapy, use of Dimension [place] TBIL is not recommended. Chloride [Moles/Vol] 106 mmol/L 98-107 [facility] Glucose [Mass/Vol] 115 mg/dL 74-106 [facility] Comment on above: Fasting Glucose resu lt from 100 to 125 mg/dL suggests IMPAIRED HOMEOSTASIS per A.D.A. criteria. Potassium [Moles/Vol] 3.9 mmol/L 3.5-5.1 [facility] Protein [Mass/Vol] 5.8 g/dL 6.4-8.2 [facility] Sodium [Moles/Vol] 141 mmol/L 136-145 [facility] WBC (Bld) [#/Vol] 10.2 10*3/uL 4.4-11.0 [facility] Blood erythrocytes count (nu mber/volume)Ordered By: Walter Becker on 04-09-2023 RBC (Bld) [#/Vol] 4.16 10*6/uL 4.6-6.2 [facility] Blood hemoglobin measurement (mass/volume)Ordered By: Walter Becker on 04-09-2023 Hemoglobin (Bld) [Mass/Vol] 11.3 g/dL 13.0-16. 5 [facility] Blood platelet mean volumeOr dered By: Walter Becker on 04-09-2023 Platelet mean volume (Bld) [Entitic vol] 9.4 fL 6.2-12.0 [facility] Determination of erythrocyte mean corpuscular volume (MCV)Ordered By: Walter Becker on 04-09-2023 MCV (RBC) [Entitic vol] 86.5 fL 80-94 [facility] Hematocrit Auto (Bld) [Volum e fraction]Ordered By: Walter Becker on 04-09-2023 Hematocrit (Bld) [Volume fraction] 36.0 % 40-54 [facility] - Chemistry and C hemistry - challengeOrdered By: Walter Becker on 04-09-2023 ALP [Catalytic activity/Vol] 105 U/L 45-117 [facility] ALT [Catalytic activity/Vol] 22 U/L 16-61 [facility] CO2 [Moles/Vol] 31.0 mmol/L 21.0-32.0 [facility] Globulin (S) [Mass/Vol] 2.9 g/dL 2.2-4.2 [facility] Urea nitrogen/Creatinine [Mass ratio] 29.9 mg/mg 10-20 [facility] - Hematology and Cell countsOrdered By: Walter Becker on 04-09-2023 Erythrocyte distribution width (RBC) [Entitic vol] 46.8 fL 35.1-43.9 [facility] Erythrocyte distribution width (RBC) [Ratio] 14.6 % 11.6-14.6 [facility] MCH (RBC) [Entitic mass] 27.2 pg 27.0-32.0 [facility] MCHC Auto (RBC) [Mass/Vol]Or dered By: Walter Becker on 04-09-2023 MCHC (RBC) [Mass/Vol] 31.4 g/dL 32-36 [facility] No Panel InformationOrdered By: Walter Becker on 04-09-2023 Estimated GFR (MDRD) Amer 101 mL/min >60 [facility] Comment on above: GFR Calc Estimated GFR (MDRD) Non-Af Amer 84 mL/min >60 [facility] Comment on above: Non- GFR Calc 27.2 pg 27.0-32.0 [facility] 14.6 % 11.6-14.6 [facility] 46.8 fl 35.1-43.9 [facility] 84 mL/min >60 [facility] 101 mL/min >60 [facility] 29.9 RATIO 10-20 [facility] 2.9 g/dL 2.2-4.2 [facility] 105 U/L 45-117 [facility] 22 U/L 16-61 [facility] 31.0 mmol/L 21.0-32.0 [facility] Platelets bldOrdered By: Crystal Becker on 04-09-2023 Platelets (Bld) [#/Vol] 229 10*3/uL 150-450 [facility] Serum or plasma albumin antoine urement (mass/volume)Ordered By: Walter Becker on 04-09-2023 Albumin [Mass/Vol] 2.9 g/dL 3.2-5.0 [facility] Serum or plasma albumin/glob ulin mass ratioOrdered By: Walter Becker on 04-09-2023 Albumin/Globulin [Mass ratio] 1.0 {ratio} 0.9-2.4 [facility] Serum or plasma calcium antoine urement (mass/volume)Ordered By: Walter Becker on 04-09-2023 Calcium [Mass/Vol] 9.0 mg/dL 8.5-10.1 [facility] Serum or plasma creatinine m easurement (mass/volume)Ordered By: Walter Becker on 04-09-2023 Creatinine [Mass/Vol] 0.94 mg/dL 0.70-1.30 [facility] Comment on above: The validity of the calculated GFR & GFRAA in patients over 70 years has not been determined. Clinical correlation is essential. Serum or plasma urea nitroge n measurement (mass/volume)Ordered By: Walter Becker on 04-09-2023 Urea nitrogen [Mass/Vol] 28 mg/dL 7-18 [facility] Thin prep Papanicolaou smear with manual screeningOrdered By: Walter Becker on 04-09-2023 Thin prep Papanicolaou smear with manual screening 7 U/L 15-37 [facility] Thin prep Papanicolaou smear with manual screening 4 5-15 [facility] - CoagulationOrde red By: Walter Becker on 04-08-2023 INR Coag (Bld) [Relative time] 2.4 {INR} [facility] Comment on above: Critical Value > 4.0 No Panel InformationOrdered By: Walter Becker on 04-08-2023 2.4 [facility] Whole blood prothrombin time Ordered By: Walter Becker on 04-08-2023 PT Coag (Bld) [Time] 25.9 s 11.7-14.9 [facility] - CoagulationOrde red By: Walter Becker on 04-01-2023 INR Coag (Bld) [Relative time] 1.9 {INR} [facility] Comment on above: Critical Value > 4.0 No Panel InformationOrdered By: Walter Becker on 04-01-2023 1.9 [facility] Whole blood prothrombin time Ordered By: Walter Becker on 04-01-2023 PT Coag (Bld) [Time] 21.0 s 11.7-14.9 [facility] - CoagulationOrde red By: Walter Becker on 03-25-2023 INR Coag (Bld) [Relative time] 1.9 {INR} [facility] Comment on above: Critical Value > 4.0 No Panel InformationOrdered By: Walter Becker on 03-25-2023 1.9 [facility] Whole blood prothrombin time Ordered By: Walter Becker on 03-25-2023 PT Coag (Bld) [Time] 21.1 s 11.7-14.9 [facility] INR in Blood by Coagulation assayOrdered By: Walter Becker on 03-11-2023 INR Coag (Bld) [Relative time] 2.4 {INR} [facility] - CoagulationOrde red By: Walter Becker on 03-11-2023 PT Coag (PPP) [Time] 26.6 s 11.7-14.9 [facility] No Panel InformationOrdered By: Walter Becker on 03-11-2023 26.6 SECONDS 11.7-14.9 [facility] Whole blood hemoglobin A1c/t otal hemoglobin ratio (mass fraction)Ordered By: Walter Becker on 03-11-2023 HbA1c (Bld) [Mass fraction] 5.5 % 3.8-5.6 [facility] Comment on above: Normal < 5.7 % Predi abetic 5.7 - 6.4 % Diabetic >or= 6.5 % Please note range changes. Basophil percentageOrdered B y: Walter Becker on 03-04-2023 Basophil percentage 114 mg/dL 74-106 [facility] Basophil percentage 5.8 g/dL 6.4-8.2 [facility] Basophil percentage 0.30 mg/dL 0.20-1.00 [facility] Basophil percentage 139 mmol/L 136-145 [facility] Basophil percentage 4.0 mmol/L 3.5-5.1 [facility] Basophil percentage 106 mmol/L 98-107 [facility] Bilirubin [Mass/Vol] 0.30 mg/dL 0.20-1.00 [facility] Comment on above: For patients on eltr ombopag therapy, use of Dimension [place] TBIL is not recommended. Chloride [Moles/Vol] 106 mmol/L 98-107 [facility] Glucose [Mass/Vol] 114 mg/dL 74-106 [facility] Comment on above: Fasting Glucose resu lt from 100 to 125 mg/dL suggests IMPAIRED HOMEOSTASIS per A.D.A. criteria. Potassium [Moles/Vol] 4.0 mmol/L 3.5-5.1 [facility] Protein [Mass/Vol] 5.8 g/dL 6.4-8.2 [facility] Sodium [Moles/Vol] 139 mmol/L 136-145 [facility] Blood hemoglobin measurement (mass/volume)Ordered By: Walter Becker on 03-04-2023 Hemoglobin (Bld) [Mass/Vol] 10.6 g/dL 13.0-16. 5 [facility] Hematocrit Auto (Bld) [Volum e fraction]Ordered By: Walter Becker on 03-04-2023 Hematocrit (Bld) [Volume fraction] 35.7 % 40-54 [facility] INR in Blood by Coagulation assayOrdered By: Walter Becker on 03-04-2023 INR Coag (Bld) [Relative time] 2.3 {INR} [facility] - Chemistry and C hemistry - challengeOrdered By: Walter Becker on 03-04-2023 ALP [Catalytic activity/Vol] 92 U/L 45- [facility] ALT [Catalytic activity/Vol] 25 U/L [facility] CO2 [Moles/Vol] 28.0 mmol/L 21.0-32.0 [facility] Globulin (S) [Mass/Vol] 3.0 g/dL 2.2-4.2 [facility] Urea nitrogen/Creatinine [Mass ratio] 33.0 mg/mg 05-03 [facility] - CoagulationOrde red By: Walter Becker on 03-04-2023 PT Coag (PPP) [Time] 25.8 s 11.7-14.9 [facility] No Panel InformationOrdered By: Walter Becker on 03-04-2023 Estimated GFR (MDRD) Amer 88 mL/min >60 [facility] Comment on above: GFR Calc Estimated GFR (MDRD) Non-Af Amer 72 mL/min >60 [facility] Comment on above: Non- GFR Calc 25.8 SECONDS 11.7-14.9 [facility] 72 mL/min >60 [facility] 88 mL/min >60 [facility] 33.0 RATIO 05-03 [facility] 3.0 g/dL 2.2-4.2 [facility] 92 U/L 45-117 [facility] 25 U/L [facility] 28.0 mmol/L 21.0-32.0 [facility] Serum or plasma albumin antoine urement (mass/volume)Ordered By: Walter Becker on 03-04-2023 Albumin [Mass/Vol] 2.8 g/dL 3.2-5.0 [facility] Serum or plasma albumin/glob ulin mass ratioOrdered By: Walter Becker on 03-04-2023 Albumin/Globulin [Mass ratio] 0.9 {ratio} 0.9-2.4 [facility] Serum or plasma calcium antoine urement (mass/volume)Ordered By: Walter Becker on 03-04-2023 Calcium [Mass/Vol] 9.1 mg/dL 8.5-10.1 [facility] Serum or plasma creatinine m easurement (mass/volume)Ordered By: Walter Becker on 03-04-2023 Creatinine [Mass/Vol] 1.06 mg/dL 0.70-1.30 [facility] Comment on above: The validity of the calculated GFR & GFRAA in patients over 70 years has not been determined. Clinical correlation is essential. Serum or plasma urea nitroge n measurement (mass/volume)Ordered By: Walter Becker on 03-04-2023 Urea nitrogen [Mass/Vol] 35 mg/dL 7-18 [facility] Thin prep Papanicolaou smear with manual screeningOrdered By: Walter Becker on 03-04-2023 Thin prep Papanicolaou smear with manual screening 12 U/L 15-37 [facility] Thin prep Papanicolaou smear with manual screening 5 5-15 [facility] - CoagulationOrde red By: Walter Becker on 03-01-2023 INR Coag (Bld) [Relative time] 2.2 {INR} [facility] Comment on above: Critical Value > 4.0 No Panel InformationOrdered By: Walter Becker on 03-01-2023 2.2 [facility] Whole blood prothrombin time Ordered By: Walter Becker on 03-01-2023 PT Coag (Bld) [Time] 24.4 s 11.7-14.9 [facility] Blood hemoglobin measurement (mass/volume)Ordered By: Walter Becker on 02-25-2023 Hemoglobin (Bld) [Mass/Vol] 11.0 g/dL 13.0-16. 5 [facility] Hematocrit Auto (Bld) [Volum e fraction]Ordered By: Walter Becker on 02-25-2023 Hematocrit (Bld) [Volume fraction] 36.8 % 40-54 [facility] INR in Blood by Coagulation assayOrdered By: Walter Becker on 02-25-2023 INR Coag (Bld) [Relative time] 2.6 {INR} [facility] - CoagulationOrde red By: Walter Becker on 02-25-2023 PT Coag (PPP) [Time] 28.0 s 11.7-14.9 [facility] No Panel InformationOrdered By: Walter Becker on 02-25-2023 28.0 SECONDS 11.7-14.9 [facility] - CoagulationOrde red By: Walter Becker on 02-22-2023 INR Coag (Bld) [Relative time] 2.6 {INR} [facility] Comment on above: Critical Value > 4.0 No Panel InformationOrdered By: Walter Becker on 02-22-2023 2.6 [facility] Whole blood prothrombin time Ordered By: Walter Becker on 02-22-2023 PT Coag (Bld) [Time] 28.4 s 11.7-14.9 [facility] No Panel InformationOrdered By: Walter Becker on 02-20-2023 2.9 [facility] Whole blood prothrombin time Ordered By: Walter Becker on 02-20-2023 PT Coag (Bld) [Time] 30.7 s 11.7-14.9 [facility] Blood hemoglobin measurement (mass/volume)Ordered By: Walter Becker on 02-18-2023 Hemoglobin (Bld) [Mass/Vol] 8.8 g/dL 13.0-16. 5 [facility] Hematocrit Auto (Bld) [Volum e fraction]Ordered By: Walter Becker on 02-18-2023 Hematocrit (Bld) [Volume fraction] 28.2 % 40-54 [facility] INR in Blood by Coagulation assayOrdered By: Walter Becker on 02-18-2023 INR Coag (Bld) [Relative time] 2.8 {INR} [facility] No Panel InformationOrdered By: Walter Becker on 02-18-2023 29.5 SECONDS 11.7-14.9 [facility] No Panel InformationOrdered By: Walter Becker on 02-14-2023 2.2 [facility] Whole blood prothrombin time Ordered By: Walter Becker on 02-14-2023 PT Coag (Bld) [Time] 24.3 s 11.7-14.9 [facility] Absolute lymphocyte countOrd ered By: Gabriel Giraldo on 02-13-2023 Lymphocytes Auto (Unsp spec) [#/Vol] 0.84 10*3/uL 0.83-4.51 [facility] Basophil percentageOrdered B y: Gabriel Giraldo on 02-13-2023 Basophils (Bld) [#/Vol] 5.4 10*3/uL 4.4-11.0 [facility] Basophils (Bld) [#/Vol] 3.6 10*3/uL 2.0-7.7 [facility] Basophils/100 WBC (Bld) 67.5 % 47-70 [facility] Basophils/100 WBC (Bld) 4.1 % 0-5 [facility] Basophils/100 WBC (Bld) 0.4 % 0-1 [facility] Blood erythrocytes count (nu mber/volume)Ordered By: Gabriel Giraldo on 02-13-2023 RBC (Bld) [#/Vol] 2.76 10*6/uL 4.6-6.2 [facility] Blood hemoglobin measurement (mass/volume)Ordered By: Gabriel Giraldo on 02-13-2023 Hemoglobin (Bld) [Mass/Vol] 7.5 g/dL 13.0-16. 5 [facility] Blood lymphocytes/100 leukoc ytesOrdered By: Gabriel Giraldo on 02-13-2023 Lymphocytes/100 WBC (Bld) 15.7 % 19-41 [facility] Blood monocytes/100 leukocyt esOrdered By: Gabriel Giraldo on 02-13-2023 Monocytes/100 WBC (Bld) 11.2 % 0-10 [facility] Blood platelet mean volumeOr dered By: Gabriel Giraldo on 02-13-2023 Platelet mean volume (Bld) [Entitic vol] 9.2 fL 6.2-12.0 [facility] COVID-19 virus antigen assay Ordered By: Gabriel Giraldo on 02-13-2023 SARS-CoV-2 (COVID-19) Ag IA.rapid Ql (Resp) [facility] SARS-CoV-2 (COVID-19) Ag IA.rapid Ql (Resp) [facility] Determination of erythrocyte mean corpuscular volume (MCV)Ordered By: Gabriel Giraldo on 02-13-2023 MCV (RBC) [Entitic vol] 88.4 fL 80-94 [facility] Glucose Glucometer (dC) [M ass/Vol]Ordered By: Gabriel Giraldo on 02-13-2023 Glucose [Mass/Vol] 146 mg/dL 74-106 [facility] Hematocrit Auto (Bld) [Volum e fraction]Ordered By: Gabriel Giraldo on 02-13-2023 Hematocrit (Bld) [Volume fraction] 24.4 % 40-54 [facility] MCHC Auto (RBC) [Mass/Vol]Or dered By: Gabriel Giraldo on 02-13-2023 MCHC (RBC) [Mass/Vol] 30.7 g/dL 32-36 [facility] No Panel InformationOrdered By: Gabriel Giraldo on 02-13-2023 27.2 pg 27.0-32.0 [facility] 16.6 % 11.6-14.6 [facility] 54.5 fl 35.1-43.9 [facility] 1.100 % 0.0-0.9 [facility] 0.9 % 0-5 [facility] Platelets bldOrdered By: Elis Giraldo on 02-13-2023 Platelets (Bld) [#/Vol] 194 10*3/uL 150-450 [facility] INR in Blood by Coagulation assayOrdered By: Gabriel Giraldo on 02-12-2023 INR Coag (Bld) [Relative time] 1.6 {INR} [facility] No Panel InformationOrdered By: Smith Leija on 02-12-2023 No growth in [address] [facility] No growth in 5 days. [facility] No Panel InformationOrdered By: Gabriel Giraldo on 02-12-2023 19.3 SECONDS 11.7-14.9 [facility] Basophil percentageOrdered B y: Dandy Sauer on 02-11-2023 Basophil percentage 2.2 mmol/L 0.4-2.0 [facility] Basophil percentage 2.8 mmol/L 0.4-2.0 [facility] Basophil percentageOrdered B y: Walter Becker on 02-11-2023 Basophil percentage 168 mg/dL 74-106 [facility] Basophil percentage 135 mmol/L 136-145 [facility] Basophil percentage 3.7 mmol/L 3.5-5.1 [facility] Basophil percentage 103 mmol/L 98-107 [facility] Basophils (Bld) [#/Vol] 10.2 10*3/uL 4.4-11.0 [facility] Blood erythrocytes count (nu mber/volume)Ordered By: Walter Becker on 02-11-2023 RBC (Bld) [#/Vol] 3.16 10*6/uL 4.6-6.2 [facility] Blood hemoglobin measurement (mass/volume)Ordered By: Walter Becker on 02-11-2023 Hemoglobin (Bld) [Mass/Vol] 8.7 g/dL 13.0-16. 5 [facility] Blood platelet mean volumeOr dered By: Walter Becker on 02-11-2023 Platelet mean volume (Bld) [Entitic vol] 9.3 fL 6.2-12.0 [facility] Determination of erythrocyte mean corpuscular volume (MCV)Ordered By: Walter Becker on 02-11-2023 MCV (RBC) [Entitic vol] 87.0 fL 80-94 [facility] Hematocrit Auto (Bld) [Volum e fraction]Ordered By: Walter Becker on 02-11-2023 Hematocrit (Bld) [Volume fraction] 27.5 % 40-54 [facility] INR in Blood by Coagulation assayOrdered By: Walter Becker on 02-11-2023 INR Coag (Bld) [Relative time] 1.5 {INR} [facility] MCHC Auto (RBC) [Mass/Vol]Or dered By: Walter Becker on 02-11-2023 MCHC (RBC) [Mass/Vol] 31.6 g/dL 32-36 [facility] No Panel InformationOrdered By: Walter Becker on 02-11-2023 27.5 pg 27.0-32.0 [facility] 17.3 % 11.6-14.6 [facility] 55.7 fl 35.1-43.9 [facility] 18.2 SECONDS 11.7-14.9 [facility] 67 mL/min >60 [facility] 81 mL/min >60 [facility] 21.1 RATIO 10-20 [facility] 27.0 mmol/L 21.0-32.0 [facility] Platelets bldOrdered By: Crystal Becker on 02-11-2023 Platelets (Bld) [#/Vol] 200 10*3/uL 150-450 [facility] Serum or plasma calcium antoine urement (mass/volume)Ordered By: Walter Becker on 02-11-2023 Calcium [Mass/Vol] 8.7 mg/dL 8.5-10.1 [facility] Serum or plasma creatinine m easurement (mass/volume)Ordered By: Walter Becker on 02-11-2023 Creatinine [Mass/Vol] 1.14 mg/dL 0.70-1.30 [facility] Serum or plasma urea nitroge n measurement (mass/volume)Ordered By: Walter Becker on 02-11-2023 Urea nitrogen [Mass/Vol] 24 mg/dL 7-18 [facility] Thin prep Papanicolaou smear with manual screeningOrdered By: Walter Becker on 02-11-2023 Thin prep Papanicolaou smear with manual screening 5 5-15 [facility] Absolute lymphocyte countOrd ered By: Geremias Carey on 02-10-2023 Lymphocytes Auto (Unsp spec) [#/Vol] 0.46 10*3/uL 0.83-4.51 [facility] Bacteria identified Cx Nom ( U)Ordered By: Geremias Carey on 02-10-2023 Culture, urine Klebsiella pneumonia e sp pneum [facility] Culture, urine Klebsiella pneumonia e sp pneum [facility] Basophil percentageOrdered B y: Geremias Carey on 02-10-2023 Basophil percentage 1.9 mmol/L 0.4-2.0 [facility] Basophil percentage 25-50 SEEN /hpf 0-5 [facility] Basophil percentage 158 mg/dL 74-106 [facility] Basophil percentage 5.6 g/dL 6.4-8.2 [facility] Basophil percentage 0.90 mg/dL 0.20-1.00 [facility] Basophil percentage 136 mmol/L 136-145 [facility] Basophil percentage 3.7 mmol/L 3.5-5.1 [facility] Basophil percentage 103 mmol/L 98-107 [facility] Basophils (Bld) [#/Vol] 10.8 10*3/uL 4.4-11.0 [facility] Basophils (Bld) [#/Vol] 9.2 10*3/uL 2.0-7.7 [facility] Basophils/100 WBC (Bld) 84.8 % 47-70 [facility] Basophils/100 WBC (Bld) 0.2 % 0-5 [facility] Basophils/100 WBC (Bld) 0.1 % 0-1 [facility] Bilirubin Test strip Ql (U)O rdered By: Geremias Carey on 02-10-2023 Bilirubin Ql (U) Negative Negative [facility] Blood erythrocytes count (nu mber/volume)Ordered By: Geremias Carey on 02-10-2023 RBC (Bld) [#/Vol] 3.20 10*6/uL 4.6-6.2 [facility] Blood hemoglobin measurement (mass/volume)Ordered By: Geremias Carey on 02-10-2023 Hemoglobin (Bld) [Mass/Vol] 8.8 g/dL 13.0-16. 5 [facility] Blood lymphocytes/100 leukoc ytesOrdered By: Geremias Carey on 02-10-2023 Lymphocytes/100 WBC (Bld) 4.3 % 19-41 [facility] Blood manual differential co mment interpretation (narrative result)Ordered By: Geremias Carey on 02-10-2023 Manual differential comment Ori (Bld) [Interp] SCANNED [facility] Blood monocytes/100 leukocyt esOrdered By: Geremias Carey on 02-10-2023 Monocytes/100 WBC (Bld) 9.8 % 0-10 [facility] Blood platelet mean volumeOr dered By: Geremias Carey on 02-10-2023 Platelet mean volume (Bld) [Entitic vol] 9.3 fL 6.2-12.0 [facility] Determination of erythrocyte mean corpuscular volume (MCV)Ordered By: Geremias Carey on 02-10-2023 MCV (RBC) [Entitic vol] 87.8 fL 80-94 [facility] Direct bilirubinOrdered By: Geremias Carey on 02-10-2023 Bilirubin.direct [Mass/Vol] 0.43 mg/dL 0.00-0.3 0 [facility] Hematocrit Auto (Bld) [Volum e fraction]Ordered By: Geremias Carey on 02-10-2023 Hematocrit (Bld) [Volume fraction] 28.1 % 40-54 [facility] INR in Blood by Coagulation assayOrdered By: Geremias Carey on 02-10-2023 INR Coag (Bld) [Relative time] 1.4 {INR} [facility] Influenza virus A and B and SARS-CoV-2 (COVID-19) Ag panel - Upper respiratory specimOrdered By: Geremias Carey on 02-10-2023 SARS-CoV-2 (COVID-19) RNA ANGELY+probe Ql (Resp) [facility] SARS-CoV-2 (COVID-19) RNA ANGELY+probe Ql (Resp) [facility] Ketones Test strip Ql (U)Ord ered By: Geremias Carey on 02-10-2023 Ketones Ql (U) 5 mg/dl Negative [facility] MCHC Auto (RBC) [Mass/Vol]Or dered By: Geremias Carey on 02-10-2023 MCHC (RBC) [Mass/Vol] 31.3 g/dL 32-36 [facility] Mucus LM Ql (Urine sed)Order ed By: Geremias Carey on 02-10-2023 Mucus Ql (Urine sed) 0 SEEN /hpf [facility] Nitrite Test strip Ql (U)Ord ered By: Geremias Carey on 02-10-2023 Nitrite Ql (U) Negative Negative [facility] No Panel InformationOrdered By: Geremias Carey on 02-10-2023 GNR lactose custom clothier [facility] GNR lactose custom clothier [facility] 27.5 pg 27.0-32.0 [facility] 17.3 % 11.6-14.6 [facility] 55.2 fl 35.1-43.9 [facility] 0.800 % 0.0-0.9 [facility] 0 % 0-5 [facility] 17.5 SECONDS 11.7-14.9 [facility] 42.1 Seconds 24.1-36.2 [facility] 70 mL/min >60 [facility] 85 mL/min >60 [facility] 66.18 ml/min [facility] 23.9 RATIO 10-20 [facility] 3.3 g/dL 2.2-4.2 [facility] 100 U/L 45-117 [facility] 18 U/L 16-61 [facility] 24.0 mmol/L 21.0-32.0 [facility] Platelets bldOrdered By: Luis Enrique Carey on 02-10-2023 Platelets (Bld) [#/Vol] 189 10*3/uL 150-450 [facility] Protein Test strip Ql (U)Ord ered By: Geremias Carey on 02-10-2023 Protein Ql (U) 100 mg/dl Negative [facility] Serum or plasma albumin antoine urement (mass/volume)Ordered By: Geremias Carey on 02-10-2023 Albumin [Mass/Vol] 2.3 g/dL 3.2-5.0 [facility] Serum or plasma calcium antoine urement (mass/volume)Ordered By: Geremias Carey on 02-10-2023 Calcium [Mass/Vol] 8.3 mg/dL 8.5-10.1 [facility] Serum or plasma creatinine m easurement (mass/volume)Ordered By: Geremias Carey on 02-10-2023 Creatinine [Mass/Vol] 1.09 mg/dL 0.70-1.30 [facility] Serum or plasma urea nitroge n measurement (mass/volume)Ordered By: Geremias Carey on 02-10-2023 Urea nitrogen [Mass/Vol] 26 mg/dL 7-18 [facility] Serum procalcitonin measurem entOrdered By: Geremias Carey on 02-10-2023 Procalcitonin [Mass/Vol] 1.43 ng/mL 0.00-0.09 [facility] Squamous epithelial cells de tection in urine sediment by light microscopyOrdered By: Geremias Carey on 02-10-2023 Epithelial cells.squamous LM Ql (Urine sed) 0 SEEN /hpf 0-5 [facility] Thin prep Papanicolaou smear with manual screeningOrdered By: Geremias Carey on 02-10-2023 Thin prep Papanicolaou smear with manual screening 10 U/L 15-37 [facility] Thin prep Papanicolaou smear with manual screening 9 5-15 [facility] Urine blood detectionOrdered By: Geremias Carey on 02-10-2023 RBC Ql (U) 250 /ul Negative [facility] RBC Ql (U) 25-50 SEEN /hpf 0-5 [facility] Urine clarityOrdered By: Luis Enrique Carey on 02-10-2023 Clarity (U) Sl. Cloudy Clear [facility] Urine color determinationOrd ered By: Geremias Carey on 02-10-2023 Color (U) Yellow Yellow [facility] Urine glucose detectionOrder ed By: Geremias Carey on 02-10-2023 Glucose Ql (U) Normal mg/dl Normal [facility] Urine leukocyte esterase det ection by dipstickOrdered By: Geremias Carey on 02-10-2023 Leukocyte esterase Test strip Ql (U) 500 /ul Negative [facility] Urine pHOrdered By: Geremias torrez on 02-10-2023 pH (U) 5.0 [pH] 5.0 - 8.0 [facility] Urine sediment bacteria coun t by microscopy (number/high power field)Ordered By: Geremias Carey on 02-10-2023 Bacteria LM.HPF (Urine sed) [#/Area] 4 /[HPF] None Seen [facility] Urine specific gravity measu rementOrdered By: Geremias Carey on 02-10-2023 Specific gravity (U) [Rel density] 1.015 1.002-1.03 0 [facility] Urobilinogen Auto test strip Ql (U)Ordered By: Geremias Carey on 02-10-2023 Urobilinogen Ql (U) Normal mg/dl Normal [facility] Blood hemoglobin measurement (mass/volume)Ordered By: Walter Becker on 02-07-2023 Hemoglobin (Bld) [Mass/Vol] 8.8 g/dL 13.0-16. 5 [facility] Hematocrit Auto (Bld) [Volum e fraction]Ordered By: Walter Becker on 02-07-2023 Hematocrit (Bld) [Volume fraction] 29.0 % 40-54 [facility] COVID-19 virus antigen assay Ordered By: Caryl Mcdermott on 02-05-2023 SARS-CoV-2 (COVID-19) Ag IA.rapid Ql (Resp) [facility] SARS-CoV-2 (COVID-19) Ag IA.rapid Ql (Resp) [facility] Glucose Glucometer (BldC) [M ass/Vol]Ordered By: Caryl Mcdermott on 02-05-2023 Glucose [Mass/Vol] 163 mg/dL 74-106 [facility] Absolute lymphocyte countOrd ered By: Yisel Rendon on 02-04-2023 Lymphocytes Auto (Unsp spec) [#/Vol] 1.39 10*3/uL 0.83-4.51 [facility] Basophil percentageOrdered B y: Yisel Rendon on 02-04-2023 Basophil percentage 151 mg/dL 74-106 [facility] Basophil percentage 141 mmol/L 136-145 [facility] Basophil percentage 3.5 mmol/L 3.5-5.1 [facility] Basophil percentage 110 mmol/L 98-107 [facility] Basophils (Bld) [#/Vol] 8.1 10*3/uL 4.4-11.0 [facility] Basophils (Bld) [#/Vol] 5.8 10*3/uL 2.0-7.7 [facility] Basophils/100 WBC (Bld) 71.5 % 47-70 [facility] Basophils/100 WBC (Bld) 2.6 % 0-5 [facility] Basophils/100 WBC (Bld) 0.1 % 0-1 [facility] Blood erythrocytes count (nu mber/volume)Ordered By: Yisel Rendon on 02-04-2023 RBC (Bld) [#/Vol] 3.23 10*6/uL 4.6-6.2 [facility] Blood hemoglobin measurement (mass/volume)Ordered By: Yisel Rendon on 02-04-2023 Hemoglobin (Bld) [Mass/Vol] 8.8 g/dL 13.0-16. 5 [facility] Blood lymphocytes/100 leukoc ytesOrdered By: Yisel Rendon on 02-04-2023 Lymphocytes/100 WBC (Bld) 17.2 % 19-41 [facility] Blood monocytes/100 leukocyt esOrdered By: Yisel Rendon on 02-04-2023 Monocytes/100 WBC (Bld) 6.3 % 0-10 [facility] Blood platelet mean volumeOr dered By: Yisel Rendon on 02-04-2023 Platelet mean volume (Bld) [Entitic vol] 8.8 fL 6.2-12.0 [facility] Determination of erythrocyte mean corpuscular volume (MCV)Ordered By: Yisel Rendon on 02-04-2023 MCV (RBC) [Entitic vol] 89.5 fL 80-94 [facility] Hematocrit Auto (Bld) [Volum e fraction]Ordered By: Yisel Rendon on 02-04-2023 Hematocrit (Bld) [Volume fraction] 28.9 % 40-54 [facility] MCHC Auto (RBC) [Mass/Vol]Or dered By: Yisel Rendon on 02-04-2023 MCHC (RBC) [Mass/Vol] 30.4 g/dL 32-36 [facility] No Panel InformationOrdered By: Yisel Rendon on 02-04-2023 27.2 pg 27.0-32.0 [facility] 17.8 % 11.6-14.6 [facility] 56.6 fl 35.1-43.9 [facility] 2.300 % 0.0-0.9 [facility] 0 % 0-5 [facility] 67 mL/min >60 [facility] 81 mL/min >60 [facility] 63.83 ml/min [facility] 10.6 RATIO 10-20 [facility] 25.0 mmol/L 21.0-32.0 [facility] Platelets bldOrdered By: José Luis Rendon on 02-04-2023 Platelets (Bld) [#/Vol] 341 10*3/uL 150-450 [facility] Serum or plasma calcium antoine urement (mass/volume)Ordered By: Yisel Rendon on 02-04-2023 Calcium [Mass/Vol] 8.4 mg/dL 8.5-10.1 [facility] Serum or plasma creatinine m easurement (mass/volume)Ordered By: Yisel Rendon on 02-04-2023 Creatinine [Mass/Vol] 1.13 mg/dL 0.70-1.30 [facility] Serum or plasma urea nitroge n measurement (mass/volume)Ordered By: Yisel Rendon on 02-04-2023 Urea nitrogen [Mass/Vol] 12 mg/dL 7-18 [facility] Thin prep Papanicolaou smear with manual screeningOrdered By: Yisel Rendon on 02-04-2023 Thin prep Papanicolaou smear with manual screening 6 5-15 [facility] Blood band neutrophil count as percentage of total leukocytesOrdered By: Yisel Rendon on 01-31-2023 Band form neutrophils/100 WBC (Bld) 3 % 0-5 [facility] Blood eosinophils/100 leukoc ytesOrdered By: Yisel Rendon on 01-31-2023 Eosinophils/100 WBC (Bld) 2 % 0-5 [facility] Blood lymphocytes/100 leukoc ytesOrdered By: Yisel Rendon on 01-31-2023 Lymphocytes/100 WBC (Bld) 22 % 19-41 [facility] Blood metamyelocytes/100 yolis kocytesOrdered By: Yisel Rendon on 01-31-2023 Metamyelocytes/100 WBC (Bld) 1 % 0-1 [facility] Blood monocytes/100 leukocyt esOrdered By: Yisel Rendon on 01-31-2023 Monocytes/100 WBC (Bld) 5 % 0-10 [facility] Blood platelet adequacy dete ction by light microscopyOrdered By: Yisel Rendon on 01-31-2023 Platelets LM Ql (Bld) ADEQUATE ADEQ [facility] Blood polychromasia detectio n by light microscopyOrdered By: Yisel Rendon on 01-31-2023 Polychromasia LM Ql (Bld) RARE [facility] Blood segmented neutrophils/ 100 leukocytesOrdered By: Yisel Rendon on 01-31-2023 Segmented neutrophils/100 WBC (Bld) 64 % 47-70 [facility] No Panel InformationOrdered By: Yisel Rendon on 01-31-2023 3 % 0-0 [facility] Review by pathologistOrdered By: Yisel Rendon on 01-31-2023 Pathologist review Ori (Unsp spec) [Interp] Reviewed [facility] Total cell countOrdered By: Yisel Rendon on 01-31-2023 Cells counted Molgen (Bld/Tiss) [#] 100 MANUAL DIFF [facility] Basophil percentageOrdered B y: Yisel Rendon on 01-30-2023 Basophil percentage 148 U/L 87-241 [facility] Blood manual differential co mment interpretation (narrative result)Ordered By: Yisel Rendon on 01-30-2023 Manual differential comment Ori (Bld) [Interp] SCANNED [facility] Hemoglobin in reticulocytes (mass per reticulocyte)Ordered By: Yisel Rendon on 01-30-2023 Hemoglobin (Reticulocytes) [Entitic mass] 22.8 pg 30-35 [facility] Hypochromatic red blood cell detectionOrdered By: Yisel Rendon on 01-30-2023 Hypochromia Ql (Bld) 1+ [facility] Iron measurement (mass/mass) Ordered By: Yisel Rendon on 01-30-2023 Iron (Unsp spec) [Mass/Mass] 28 ug/dL 65-175 [facility] No Panel InformationOrdered By: Yisel Rendon on 01-30-2023 RARE % [facility] 3.53 % 0.5-1.5 [facility] 40.30 % 3.00-15.90 [facility] 635 pg/mL 211-911 [facility] 166 ug/dL 250-450 [facility] Serum or plasma ferritin hank surement (mass/volume)Ordered By: Yisel Rendon on 01-30-2023 Ferritin [Mass/Vol] 138 ng/mL 26-388 [facility] Serum or plasma folate measu rement (mass/volume)Ordered By: Yisel Rendon on 01-30-2023 Folate [Mass/Vol] 4.60 ng/mL 3.1-55.4 [facility] Serum or plasma iron saturat ion measurement (mass fraction)Ordered By: Yisel Rendon on 01-30-2023 Iron saturation [Mass fraction] 16.9 % 15.0-55.0 [facility] No Panel InformationOrdered By: Yisel Rendon on 01-29-2023 RARE [facility] Vancomycin troughOrdered By: Karen Aly on 01-29-2023 Vancomycin trough [Mass/Vol] 7.8 ug/mL 5.0-15.0 [facility] Basophil percentageOrdered B y: Karen Aly on 01-28-2023 Basophil percentage 5.8 g/dL 6.4-8.2 [facility] Basophil percentage 0.70 mg/dL 0.20-1.00 [facility] No Panel InformationOrdered By: Karen Aly on 01-28-2023 3.8 g/dL 2.2-4.2 [facility] 81 U/L 45-117 [facility] 85 U/L 16-61 [facility] Serum or plasma albumin antoine urement (mass/volume)Ordered By: Karen Aly on 01-28-2023 Albumin [Mass/Vol] 2.0 g/dL 3.2-5.0 [facility] Serum or plasma albumin/glob ulin mass ratioOrdered By: Karen Jermain on 01-28-2023 Albumin/Globulin [Mass ratio] 0.5 {ratio} 0.9-2.4 [facility] Thin prep Papanicolaou smear with manual screeningOrdered By: Karen Aly on 01-28-2023 Thin prep Papanicolaou smear with manual screening 49 U/L 15-37 [facility] Absolute lymphocyte countOrd ered By: Syed Allen on 01-27-2023 Lymphocytes Auto (Unsp spec) [#/Vol] 1.35 10*3/uL 0.83-4.51 [facility] Basophil percentageOrdered B y: Karen Aly on 01-27-2023 Basophil percentage 2.6 mg/dL 2.5-4.9 [facility] Basophil percentageOrdered B y: Syed Allen on 01-27-2023 Basophils/100 WBC (Bld) 0.1 % 0-1 [facility] Bilirubin [Mass/Vol] 0.50 mg/dL 0.20-1.00 [facility] Comment on above: For patients on eltr ombopag therapy, use of Dimension [place] TBIL is not recommended. Chloride [Moles/Vol] 111 mmol/L 98-107 [facility] Eosinophils/100 WBC (Bld) 2.9 % 0-5 [facility] Glucose [Mass/Vol] 215 mg/dL 74-106 [facility] Comment on above: Glucose result great er than or equal to 200 mg/dLsuggests DIABETES MELLITUS per A.D.A. criteria. Neutrophils (Bld) [#/Vol] 8.0 10*3/uL 2.0-7.7 [facility] Neutrophils/100 WBC (Bld) 73.8 % 47-70 [facility] Potassium [Moles/Vol] 4.0 mmol/L 3.5-5.1 [facility] Protein [Mass/Vol] 5.3 g/dL 6.4-8.2 [facility] Sodium [Moles/Vol] 140 mmol/L 136-145 [facility] WBC (Bld) [#/Vol] 10.9 10*3/uL 4.4-11.0 [facility] Blood erythrocytes count (nu mber/volume)Ordered By: Syed Allen on 01-27-2023 RBC (Bld) [#/Vol] 2.91 10*6/uL 4.6-6.2 [facility] Blood hemoglobin measurement (mass/volume)Ordered By: Syed Allen on 01-27-2023 Hemoglobin (Bld) [Mass/Vol] 8.2 g/dL 13.0-16. 5 [facility] Blood lymphocytes/100 leukoc ytesOrdered By: Syed Allen on 01-27-2023 Lymphocytes/100 WBC (Bld) 12.4 % 19-41 [facility] Blood monocytes/100 leukocyt esOrdered By: Syed Allen on 01-27-2023 Monocytes/100 WBC (Bld) 8.2 % 0-10 [facility] Blood platelet mean volumeOr dered By: Syed Allen on 01-27-2023 Platelet mean volume (Bld) [Entitic vol] 9.9 fL 6.2-12.0 [facility] Determination of erythrocyte mean corpuscular volume (MCV)Ordered By: Syed Allen on 01-27-2023 MCV (RBC) [Entitic vol] 88.0 fL 80-94 [facility] Hematocrit Auto (Bld) [Volum e fraction]Ordered By: Syed Allen on 01-27-2023 Hematocrit (Bld) [Volume fraction] 25.6 % 40-54 [facility] INR in Blood by Coagulation assayOrdered By: Syed Allen on 01-27-2023 INR Coag (Bld) [Relative time] 1.6 {INR} [facility] - Chemistry and C hemistry - challengeOrdered By: Syed Allen on 01-27-2023 ALP [Catalytic activity/Vol] 78 U/L 45-117 [facility] ALT [Catalytic activity/Vol] 81 U/L 16-61 [facility] CO2 [Moles/Vol] 25.0 mmol/L 21.0-32.0 [facility] Globulin (S) [Mass/Vol] 3.5 g/dL 2.2-4.2 [facility] Lipase [Catalytic activity/Vol] 233 U/L 13-75 [facility] Comment on above: Please note:LIPASE r evised reference range effective 22. New Lipase methodology. Expected to produce lower values than the previous assay method. NEW Reference Range: 13 - 75 U/L Urea nitrogen/Creatinine [Mass ratio] 20.4 mg/mg 10-20 [facility] - CoagulationOrde red By: Syed Allen on 01-27-2023 PT Coag (PPP) [Time] 19.4 s 11.7-14.9 [facility] - Hematology and Cell countsOrdered By: Syed Allen on 01-27-2023 Erythrocyte distribution width (RBC) [Entitic vol] 49.3 fL 35.1-43.9 [facility] Erythrocyte distribution width (RBC) [Ratio] 15.5 % 11.6-14.6 [facility] Immature granulocytes/100 WBC (Bld) 2.600 % 0.0-0.9 [facility] Comment on above: IG% - Immature Granu locytes (promyelocytes, myelocytes and metamyelocytes) > 1% indicates that a LEFT SHIFT is Present. MCH (RBC) [Entitic mass] 28.2 pg 27.0-32.0 [facility] Nucleated RBC/100 WBC (Bld) [Ratio] 0.2 % 0-5 [facility] MCHC Auto (RBC) [Mass/Vol]Or dered By: Syed Allen on 01-27-2023 MCHC (RBC) [Mass/Vol] 32.0 g/dL 32-36 [facility] No Panel InformationOrdered By: Karen White on 01-27-2023 Negative Negative [facility] 1.7 mg/dL 1.6-2.6 [facility] No Panel InformationOrdered By: Syed Allen on 01-27-2023 Estimated Creatinine Clearance Calc 50.80 ml/min [facility] Estimated GFR (MDRD) Amer 63 mL/min >60 [facility] Comment on above: GFR Calc Estimated GFR (MDRD) Non-Af Amer 52 mL/min >60 [facility] Comment on above: Non- GFR Calc 19.4 SECONDS 11.7-14.9 [facility] 233 U/L 13-75 [facility] Platelets bldOrdered By: Glenroy Allen on 01-27-2023 Platelets (Bld) [#/Vol] 259 10*3/uL 150-450 [facility] Serum or plasma albumin antoine urement (mass/volume)Ordered By: Syed Allen on 01-27-2023 Albumin [Mass/Vol] 1.8 g/dL 3.2-5.0 [facility] Serum or plasma albumin/glob ulin mass ratioOrdered By: Syed Allen on 01-27-2023 Albumin/Globulin [Mass ratio] 0.5 {ratio} 0.9-2.4 [facility] Serum or plasma calcium antoine urement (mass/volume)Ordered By: Syed Allen on 01-27-2023 Calcium [Mass/Vol] 8.3 mg/dL 8.5-10.1 [facility] Serum or plasma creatinine m easurement (mass/volume)Ordered By: Syed Allen on 01-27-2023 Creatinine [Mass/Vol] 1.42 mg/dL 0.70-1.30 [facility] Comment on above: The validity of the calculated GFR & GFRAA in patients over 70 years has not been determined. Clinical correlation is essential. Serum or plasma urea nitroge n measurement (mass/volume)Ordered By: Syed Allen on 01-27-2023 Urea nitrogen [Mass/Vol] 29 mg/dL 7-18 [facility] Serum procalcitonin measurem entOrdered By: Karen Aly on 01-27-2023 Procalcitonin [Mass/Vol] 0.12 ng/mL 0.00-0.09 [facility] Thin prep Papanicolaou smear with manual screeningOrdered By: Syed Allen on 01-27-2023 Thin prep Papanicolaou smear with manual screening 68 U/L 15-37 [facility] Thin prep Papanicolaou smear with manual screening 4 5-15 [facility] Urine Legionella pneumophila antigen detectionOrdered By: Karen Aly on 01-27-2023 L. pneumophila Ag Ql (U) [facility] Absolute lymphocyte countOrd ered By: Ryan Tinoco on 01-26-2023 Lymphocytes Auto (Unsp spec) [#/Vol] 0.69 10*3/uL 0.83-4.51 [facility] Basophil percentageOrdered B y: Karen Aly on 01-26-2023 Basophil percentage 2.4 mg/dL 2.5-4.9 [facility] Basophil percentageOrdered B y: Ryan Tinoco on 01-26-2023 Basophil percentage 235 mg/dL 74-106 [facility] Basophil percentage 143 mmol/L 136-145 [facility] Basophil percentage 3.8 mmol/L 3.5-5.1 [facility] Basophil percentage 114 mmol/L 98-107 [facility] Basophils (Bld) [#/Vol] 8.5 10*3/uL 4.4-11.0 [facility] Basophils (Bld) [#/Vol] 6.7 10*3/uL 2.0-7.7 [facility] Basophils/100 WBC (Bld) 0.1 % 0-1 [facility] Basophils/100 WBC (Bld) 78.4 % 47-70 [facility] Basophils/100 WBC (Bld) 1.6 % 0-5 [facility] Chloride [Moles/Vol] 114 mmol/L 98-107 [facility] Eosinophils/100 WBC (Bld) 1.6 % 0-5 [facility] Glucose [Mass/Vol] 235 mg/dL 74-106 [facility] Comment on above: Glucose result great er than or equal to 200 mg/dLsuggests DIABETES MELLITUS per A.D.A. criteria. Neutrophils (Bld) [#/Vol] 6.7 10*3/uL 2.0-7.7 [facility] Neutrophils/100 WBC (Bld) 78.4 % 47-70 [facility] Potassium [Moles/Vol] 3.8 mmol/L 3.5-5.1 [facility] Sodium [Moles/Vol] 143 mmol/L 136-145 [facility] WBC (Bld) [#/Vol] 8.5 10*3/uL 4.4-11.0 [facility] Blood erythrocytes count (nu mber/volume)Ordered By: Ryan Tinoco on 01-26-2023 RBC (Bld) [#/Vol] 3.06 10*6/uL 4.6-6.2 [facility] Blood hemoglobin measurement (mass/volume)Ordered By: Ryan Tinoco on 01-26-2023 Hemoglobin (Bld) [Mass/Vol] 8.6 g/dL 13.0-16. 5 [facility] Blood lymphocytes/100 leukoc ytesOrdered By: Ryan Tinoco on 01-26-2023 Lymphocytes/100 WBC (Bld) 8.1 % 19-41 [facility] Blood monocytes/100 leukocyt esOrdered By: Ryan Tinoco on 01-26-2023 Monocytes/100 WBC (Bld) 9.6 % 0-10 [facility] Blood platelet mean volumeOr dered By: Ryan Tinoco on 01-26-2023 Platelet mean volume (Bld) [Entitic vol] 9.9 fL 6.2-12.0 [facility] COVID-19 virus antigen assay Ordered By: Ryan Tinoco on 01-26-2023 SARS-CoV-2 (COVID-19) Ag IA.rapid Ql (Resp) [facility] SARS-CoV-2 (COVID-19) Ag IA.rapid Ql (Resp) [facility] Determination of erythrocyte mean corpuscular volume (MCV)Ordered By: Ryan Tinoco on 01-26-2023 MCV (RBC) [Entitic vol] 88.6 fL 80-94 [facility] Glucose Glucometer (BldC) [M ass/Vol]Ordered By: Ryan Tinoco on 01-26-2023 Glucose [Mass/Vol] 230 mg/dL 74-106 [facility] Comment on above: MANAGEMENT OF PATIEN T CARE PER NURSING PROTOCOL Hematocrit Auto (Bld) [Volum e fraction]Ordered By: Ryan Tinoco on 01-26-2023 Hematocrit (Bld) [Volume fraction] 27.1 % 40-54 [facility] - Chemistry and C hemistry - challengeOrdered By: Ryan Tinoco on 01-26-2023 CO2 [Moles/Vol] 23.0 mmol/L 21.0-32.0 [facility] Urea nitrogen/Creatinine [Mass ratio] 18.8 mg/mg 10-20 [facility] - Chemistry and C hemistry - challengeOrdered By: Karen Aly on 01-26-2023 Magnesium [Mass/Vol] 1.8 mg/dL 1.6-2.6 [facility] - Hematology and Cell countsOrdered By: Ryan Tinoco on 01-26-2023 Erythrocyte distribution width (RBC) [Entitic vol] 50.6 fL 35.1-43.9 [facility] Erythrocyte distribution width (RBC) [Ratio] 15.9 % 11.6-14.6 [facility] Immature granulocytes/100 WBC (Bld) 2.200 % 0.0-0.9 [facility] Comment on above: IG% - Immature Granu locytes (promyelocytes, myelocytes and metamyelocytes) > 1% indicates that a LEFT SHIFT is Present. MCH (RBC) [Entitic mass] 28.1 pg 27.0-32.0 [facility] Nucleated RBC/100 WBC (Bld) [Ratio] 0.5 % 0-5 [facility] MCHC Auto (RBC) [Mass/Vol]Or dered By: Ryan Tinoco on 01-26-2023 MCHC (RBC) [Mass/Vol] 31.7 g/dL 32-36 [facility] No Panel InformationOrdered By: Ryan Tinoco on 01-26-2023 Estimated Creatinine Clearance Calc 48.41 ml/min [facility] Estimated GFR (MDRD) Amer 59 mL/min >60 [facility] Comment on above: GFR Calc Estimated GFR (MDRD) Non-Af Amer 49 mL/min >60 [facility] Comment on above: Non- GFR Calc 28.1 pg 27.0-32.0 [facility] 15.9 % 11.6-14.6 [facility] 50.6 fl 35.1-43.9 [facility] 2.200 % 0.0-0.9 [facility] 0.5 % 0-5 [facility] 49 mL/min >60 [facility] 59 mL/min >60 [facility] 48.41 ml/min [facility] 18.8 RATIO 10-20 [facility] 23.0 mmol/L 21.0-32.0 [facility] No Panel InformationOrdered By: Karen Aly on 01-26-2023 1.8 mg/dL 1.6-2.6 [facility] Platelets bldOrdered By: Jaizel Tinoco on 01-26-2023 Platelets (Bld) [#/Vol] 217 10*3/uL 150-450 [facility] Serum or plasma calcium antoine urement (mass/volume)Ordered By: Ryan Tinoco on 01-26-2023 Calcium [Mass/Vol] 8.5 mg/dL 8.5-10.1 [facility] Serum or plasma creatinine m easurement (mass/volume)Ordered By: Ryan Tinoco on 01-26-2023 Creatinine [Mass/Vol] 1.49 mg/dL 0.70-1.30 [facility] Comment on above: The validity of the calculated GFR & GFRAA in patients over 70 years has not been determined. Clinical correlation is essential. Serum or plasma urea nitroge n measurement (mass/volume)Ordered By: Ryan Tinoco on 01-26-2023 Urea nitrogen [Mass/Vol] 28 mg/dL 7-18 [facility] Thin prep Papanicolaou smear with manual screeningOrdered By: Ryan Tinoco on 01-26-2023 Thin prep Papanicolaou smear with manual screening 6 -15 [facility] INR in Blood by Coagulation assayOrdered By: Ryan Tinoco on 01-25-2023 INR Coag (Bld) [Relative time] 1.6 {INR} [facility] - CoagulationOrde red By: Ryan Tinoco on 01-25-2023 PT Coag (PPP) [Time] 19.1 s 11.7-14.9 [facility] No Panel InformationOrdered By: Ryan Tinoco on 01-25-2023 19.1 SECONDS 11.7-14.9 [facility] Albumin Elph [Mass/Vol]Order ed By: Liu Hackett on 01-22-2023 Albumin [Mass/Vol] 2.5 g/dL 2.9-4.4 [facility] Aldolase ser/plasOrdered By: Liu Hackett on 01-22-2023 Aldolase [Catalytic activity/Vol] 1.5 mU/mL 3.3-10.3 [facility] Comment on above: Performed at: [address] [id number] Director: Ernie Jacob PhD, Phone: [phone] at: [facility] [id number] Director: Lindsay Kearns MD, Phone: [phone] Atypical perinuclear antineu trophil cytoplasmic antibodies measurementOrdered By: Liu Hackett on 01-22-2023 Neutrophil cytoplasmic Ab.perinuclear.atypical IF (S) [Titer] <1:20 titer Neg:<1:20 [facility] Comment on above: The atypical pANCA p attern has been observed in asignificant percentage of patients with ulcerative colitis,primary sclerosing cholangitis and autoimmune hepatitis. Basophil percentageOrdered B y: Liu Hackett on 01-22-2023 Basophil percentage < 0.2 AI 0.0-0.9 [facility] Basophil percentage 3.4 mmol/L 0.4-2.0 [facility] Basophil percentage 136 U/L 87-241 [facility] Lactate [Moles/Vol] 3.4 mmol/L 0.4-2.0 [facility] Comment on above: Critical Result(s) C alled at: 12:30:42 01/22/2023 by: Aruna Morales. To Dagoberto Martin RN (ICU). Results read back by same. LDH [Catalytic activity/Vol] 136 U/L 87-241 [facility] Blood polychromasia detectio n by light microscopyOrdered By: Jesus Burnham on 01-22-2023 Polychromasia LM Ql (Bld) 1+ [facility] Interpretation of serum or p lasma protein pattern by immunofixation (narrative resultOrdered By: Liu Hackett on 01-22-2023 Protein Fractions Immunofixation Ori [Interp] See comment [facility] Comment on above: NOT OBSERVED Laboratory - Chemistry and C hemistry - challengeOrdered By: Liu Hackett on 01-22-2023 CK [Catalytic activity/Vol] 31 U/L 39-308 [facility] Laboratory - Hematology and Cell countsOrdered By: Jesus Burnham on 01-22-2023 Anisocytosis Ql (Bld) 1+ [facility] No Panel InformationOrdered By: Liu Hackett on 01-22-2023 Addendum Document Comment . [facility] Comment on above: Protein electrophore sis scan will follow via computer,mail, or manager logistic delivery. Centromere B Antibody <0.2 AI 0.0-0.9 [facility] Immunoglobulin E 399 IU/mL 6-495 [facility] Immunoglobulin G4 8 mg/dL 2-96 [facility] SLASHER Antibody <0.2 AI 0.0-0.9 [facility] 31 U/L 39-308 [facility] 8 mg/dL 2-96 [facility] 399 IU/mL 6-495 [facility] <0.2 AI 0.0-0.9 [facility] No Panel InformationOrdered By: Jesus Burnham on 01-22-2023 1+ [facility] Review by pathologistOrdered By: Jesus Burnham on 01-22-2023 Pathologist review Ori (Unsp spec) [Interp] Reviewed [facility] Comment on above: Previous reported re sult: November orin Edited by: MIANYTZER on 01/23/23:1008Neutrophilic leukocytosis with left shift.Normocytic anemia.Clinical correlation necessary.Evaristo Dela Cruz M.D. 01/23/23 AMENDED REPORT 01/23/23 1008 PATH REV previously reported as: November orin Serum DNA double strand anti body assay (units/volume)Ordered By: Liu Hackett on 01-22-2023 DNA double strand Ab Qn (S) [IU]/mL 0-9 [facility] Comment on above: Negative <5 Equivoca l 5 - 9 Positive >9 Serum IgG subclass 1 measure ment (mass/volume)Ordered By: Liu Hackett on 01-22-2023 IgG subclass 1 (S) [Mass/Vol] 237 mg/dL 248-810 [facility] Serum IgG subclass 2 measure ment (mass/volume)Ordered By: Liu Hackett on 01-22-2023 IgG subclass 2 (S) [Mass/Vol] 115 mg/dL 130-555 [facility] Serum IgG subclass 3 measure ment (mass/volume)Ordered By: Liu Hackett on 01-22-2023 IgG subclass 3 (S) [Mass/Vol] 20 mg/dL 15-102 [facility] Serum Kelsey-1 antibody assay (u nits/volume)Ordered By: Liu Hackett on 01-22-2023 Kelsey-1 extractable nuclear Ab Qn (S) <0.2 AI 0.0-0.9 [facility] Serum Scl-70 extractable nuc lear antibody assay (units/volume)Ordered By: Liu Hackett on 01-22-2023 SCL-70 extractable nuclear Ab Qn (S) <0.2 AI 0.0-0.9 [facility] Serum Martinez extractable nucl ear antibody detectionOrdered By: Liu Hackett on 01-22-2023 Martinez extractable nuclear Ab Ql (S) <0.2 AI 0.0-0.9 [facility] Serum [id number] measu rement by electrophoresisOrdered By: Liu Hackett on 01-22-2023 Alpha 1 globulin Elph [Mass/Vol] 0.2 g/dL 0.0-0.4 [facility] Alpha 1 globulin Elph [Mass/Vol] 0.6 g/dL 0.4-1.0 [facility] Serum classic neutrophil cyt oplasmic antibody assay (units/volume)Ordered By: Liu Hackett on 01-22-2023 Neutrophil cytoplasmic Ab.classic Qn (S) <1:20 titer Neg:<1:20 [facility] Serum globulin measurement ( mass/volume)Ordered By: Liu Hackett on 01-22-2023 Globulin (S) [Mass/Vol] 1.9 g/dL 2.2-3.9 [facility] Serum or plasma IgA measurem ent (mass/volume)Ordered By: Liu Hackett on 01-22-2023 IgA [Mass/Vol] 194 mg/dL 61-437 [facility] Serum or plasma IgG measurem ent (mass/volume)Ordered By: Liu Hackett on 01-22-2023 IgG [Mass/Vol] 417 mg/dL 603-1613 [facility] IgG [Mass/Vol] Not Reportable [facility] Serum or plasma IgM measurem ent (mass/volume)Ordered By: Liu Hackett on 01-22-2023 IgM [Mass/Vol] 15 mg/dL 15-143 [facility] Comment on above: Result confirmed on concentration. Serum or plasma beta globuli n measurement by electrophoresis (mass/volume)Ordered By: Liu Hackett on 01-22-2023 Beta globulin Elph [Mass/Vol] 0.7 g/dL 0.7-1.3 [facility] Serum or plasma gamma globul in measurement by electrophoresis (mass/volume)Ordered By: Liu Hackett on 01-22-2023 Gamma globulin Elph [Mass/Vol] 0.3 g/dL 0.4-1.8 [facility] Serum or plasma immunoelectr ophoresis interpretation (nominal result)Ordered By: Liu Hackett on 01-22-2023 Interpretation IEP [Interp] Comment . [facility] Comment on above: No monoclonality det ected. Serum perinuclear neutrophil cytoplasmic antibody titer by immunofluorescenceOrdered By: Liu Hackett on 01-22-2023 Neutrophil cytoplasmic Ab.perinuclear IF (S) [Titer] <1:20 titer Neg:<1:20 [facility] Comment on above: The presence of posi tive fluorescence exhibiting P-ANCA orC-ANCA patterns alone is not specific for the diagnosis ofWegener's Granulomatosis (WG) or microscopic polyangiitis.Decisions about treatment should not be based solely onANCA IFA results. The International ANCA Group Consensusrecommends follow up testing of positive sera with both VA-3 and MPO-ANCA enzyme immunoassays. As many as 5% serumsamples are positive only by EIA. Ref. AM J Clin [id number];111:507-513. Thin prep Papanicolaou smear with manual screeningOrdered By: Liu Hackett on 01-22-2023 Thin prep Papanicolaou smear with manual screening 1.4 0.7-1.7 [facility] Total protein bloodOrdered B y: Liu Hackett on 01-22-2023 Protein [Mass/Vol] 4.4 g/dL 6.0-8.5 [facility] Absolute lymphocyte countOrd ered By: Dandy Yadavone on 01-21-2023 Lymphocytes Auto (Unsp spec) [#/Vol] 1.69 10*3/uL 0.83-4.51 [facility] Basophil percentageOrdered B y: Dandy Sauer on 01-21-2023 Basophil percentage 0-5 SEEN /hpf 0-5 [facility] Basophil percentage 5.4 g/dL 6.4-8.2 [facility] Basophil percentage 0.30 mg/dL 0.20-1.00 [facility] Basophils/100 WBC (Bld) 0.3 % 0-1 [facility] Bilirubin [Mass/Vol] 0.30 mg/dL 0.20-1.00 [facility] Comment on above: For patients on eltr ombopag therapy, use of Dimension [place] TBIL is not recommended. Chloride [Moles/Vol] 109 mmol/L 98-107 [facility] Eosinophils/100 WBC (Bld) 0.0 % 0-5 [facility] Glucose [Mass/Vol] 248 mg/dL 74-106 [facility] Comment on above: Glucose result great er than or equal to 200 mg/dLsuggests DIABETES MELLITUS per A.D.A. criteria. Lactate [Moles/Vol] 7.9 mmol/L 0.4-2.0 [facility] Comment on above: Critical Result(s) C alled at: 09:48:37 01/21/2023 by: Aruna Morales to Shwetha. Results read back by same. Neutrophils (Bld) [#/Vol] 19.7 10*3/uL 2.0-7.7 [facility] Neutrophils/100 WBC (Bld) 87.8 % 47-70 [facility] Potassium [Moles/Vol] 5.2 mmol/L 3.5-5.1 [facility] Protein [Mass/Vol] 5.4 g/dL 6.4-8.2 [facility] Sodium [Moles/Vol] 138 mmol/L 136-145 [facility] WBC (Bld) [#/Vol] 22.4 10*3/uL 4.4-11.0 [facility] Bilirubin Test strip Ql (U)O rdered By: Dandy Sauer on 01-21-2023 Bilirubin Ql (U) 1 mg/dL Negative [facility] Comment on above: COLOR OF URINE MAY A FFECT DIPSTICK RESULTS. Blood erythrocytes count (nu mber/volume)Ordered By: Dandy Sauer on 01-21-2023 RBC (Bld) [#/Vol] 3.96 10*6/uL 4.6-6.2 [facility] Blood hemoglobin measurement (mass/volume)Ordered By: Dandy Sauer on 01-21-2023 Hemoglobin (Bld) [Mass/Vol] 10.7 g/dL 13.0-16. 5 [facility] Blood lymphocytes/100 leukoc ytesOrdered By: Dandy Sauer on 01-21-2023 Lymphocytes/100 WBC (Bld) 7.5 % 19-41 [facility] Blood monocytes/100 leukocyt esOrdered By: Dandy Sauer on 01-21-2023 Monocytes/100 WBC (Bld) 2.4 % 0-10 [facility] Blood platelet mean volumeOr dered By: Dandy Sauer on 01-21-2023 Platelet mean volume (Bld) [Entitic vol] 10.7 fL 6.2-12.0 [facility] Determination of erythrocyte mean corpuscular volume (MCV)Ordered By: Dandy Sauer on 01-21-2023 MCV (RBC) [Entitic vol] 86.6 fL 80-94 [facility] Hematocrit Auto (Bld) [Volum e fraction]Ordered By: Dandy Sauer on 01-21-2023 Hematocrit (Bld) [Volume fraction] 34.3 % 40-54 [facility] INR in Blood by Coagulation assayOrdered By: Dandy Sauer on 01-21-2023 INR Coag (Bld) [Relative time] 4.2 {INR} [facility] Comment on above: CRITICAL VALUE VERIF IED. CALLED TO EVANS MARI (ER)01/21/23 1011 Zachary Gabriel.RESULTS READ BACK BY SAME. Ketones Test strip Ql (U)Ord ered By: Dandy Sauer on 01-21-2023 Ketones Ql (U) 15 mg/dl Negative [facility] - Chemistry and C hemistry - challengeOrdered By: Dandy Sauer on 01-21-2023 ALP [Catalytic activity/Vol] 76 U/L 45-117 [facility] ALT [Catalytic activity/Vol] 25 U/L 16-61 [facility] CO2 [Moles/Vol] 12.0 mmol/L 21.0-32.0 [facility] Globulin (S) [Mass/Vol] 2.7 g/dL 2.2-4.2 [facility] Urea nitrogen/Creatinine [Mass ratio] 62.8 mg/mg 10-20 [facility] - CoagulationOrde red By: Dandy Sauer on 01-21-2023 PT Coag (PPP) [Time] 41.4 s 11.7-14.9 [facility] - Hematology and Cell countsOrdered By: Dandy Sauer on 01-21-2023 Erythrocyte distribution width (RBC) [Entitic vol] 46.6 fL 35.1-43.9 [facility] Erythrocyte distribution width (RBC) [Ratio] 14.7 % 11.6-14.6 [facility] Immature granulocytes/100 WBC (Bld) 2.000 % 0.0-0.9 [facility] Comment on above: IG% - Immature Granu locytes (promyelocytes, myelocytes and metamyelocytes) > 1% indicates that a LEFT SHIFT is Present. MCH (RBC) [Entitic mass] 27.0 pg 27.0-32.0 [facility] Nucleated RBC/100 WBC (Bld) [Ratio] 0 % 0-5 [facility] Lower GI hemoglobin IA Ql (S tl)Ordered By: Dandy Sauer on 01-21-2023 Stool gastrointestinal hemoglobin detection by immunologic method Positive [facility] Stool Occult Blood (KLAUS) Positive [facility] Stool gastrointestinal hemoglobin detection by immunologic method Positive [facility] MCHC Auto (RBC) [Mass/Vol]Or dered By: Dandy Sauer on 01-21-2023 MCHC (RBC) [Mass/Vol] 31.2 g/dL 32-36 [facility] Mucus LM Ql (Urine sed)Order ed By: Dandy Sauer on 01-21-2023 Mucus Ql (Urine sed) 0 SEEN /hpf [facility] Nitrite Test strip Ql (U)Ord ered By: Dandy Sauer on 01-21-2023 Nitrite Ql (U) Negative Negative [facility] No Panel InformationOrdered By: Dandy Sauer on 01-21-2023 Estimated Creatinine Clearance Calc 36.25 ml/min [facility] Estimated GFR (MDRD) Amer 42 mL/min >60 [facility] Comment on above: GFR Calc Estimated GFR (MDRD) Non-Af Amer 35 mL/min >60 [facility] Comment on above: Non- GFR Calc Troponin I High Sensitivity 23 pg/mL 3.0-78.0 [facility] Comment on above: Please Note: New Thania t Units and Gender Specific Reference Ranges. For more information see Policy Stat Procedure [place] High Sensitivity Troponin (TNIH) and attachments. 23 pg/mL 3.0-78.0 [facility] 76 U/L 45-117 [facility] 25 U/L 16-61 [facility] Platelets bldOrdered By: Renetta Sauer on 01-21-2023 Platelets (Bld) [#/Vol] 389 10*3/uL 150-450 [facility] Protein Test strip Ql (U)Ord ered By: Dandy Sauer on 01-21-2023 Protein Ql (U) 15 mg/dl Negative [facility] Serum or plasma albumin antoine urement (mass/volume)Ordered By: Dandy Sauer on 01-21-2023 Albumin [Mass/Vol] 2.7 g/dL 3.2-5.0 [facility] Serum or plasma albumin/glob ulin mass ratioOrdered By: Dandy Sauer on 01-21-2023 Albumin/Globulin [Mass ratio] 1.0 {ratio} 0.9-2.4 [facility] Serum or plasma calcium antoine urement (mass/volume)Ordered By: Dandy Sauer on 01-21-2023 Calcium [Mass/Vol] 9.7 mg/dL 8.5-10.1 [facility] Serum or plasma creatinine m easurement (mass/volume)Ordered By: Dandy Sauer on 01-21-2023 Creatinine [Mass/Vol] 1.99 mg/dL 0.70-1.30 [facility] Comment on above: The validity of the calculated GFR & GFRAA in patients over 70 years has not been determined. Clinical correlation is essential. Serum or plasma urea nitroge n measurement (mass/volume)Ordered By: Dandy Sauer on 01-21-2023 Urea nitrogen [Mass/Vol] 125 mg/dL 7-18 [facility] Comment on above: Critical Result(s) C alled at: 09:53:00 01/21/2023 by: Aruna Tadeo. Results read back by same. Squamous epithelial cells de tection in urine sediment by light microscopyOrdered By: Dandy Sauer on 01-21-2023 Epithelial cells.squamous LM Ql (Urine sed) 0-5 SEEN /hpf 0-5 [facility] Thin prep Papanicolaou smear with manual screeningOrdered By: Dandy Sauer on 01-21-2023 Thin prep Papanicolaou smear with manual screening 9 U/L 15-37 [facility] Thin prep Papanicolaou smear with manual screening 17 5-15 [facility] Urine blood detectionOrdered By: Dandy Sauer on 01-21-2023 RBC Ql (U) Negative Negative [facility] RBC Ql (U) 0 SEEN /hpf 0-5 [facility] Urine clarityOrdered By: Renetta Sauer on 01-21-2023 Clarity (U) Clear Clear [facility] Urine color determinationOrd ered By: Dandy Sauer on 01-21-2023 Color (U) Yellow Yellow [facility] Urine glucose detectionOrder ed By: Dandy Sauer on 01-21-2023 Glucose Ql (U) 100 mg/dl Normal [facility] Urine leukocyte esterase det ection by dipstickOrdered By: Dandy Sauer on 01-21-2023 Leukocyte esterase Test strip Ql (U) Negative Negative [facility] Urine pHOrdered By: Dandy Sauer on 01-21-2023 pH (U) 5.0 [pH] 5.0 - 8.0 [facility] Urine sediment bacteria coun t by microscopy (number/high power field)Ordered By: Dandy Sauer on 01-21-2023 Bacteria LM.HPF (Urine sed) [#/Area] 0 /[HPF] None Seen [facility] Urine specific gravity measu rementOrdered By: Dandy Sauer on 01-21-2023 Specific gravity (U) [Rel density] 1.020 1.002-1.03 0 [facility] Urobilinogen Auto test strip Ql (U)Ordered By: Dandy Sauer on 01-21-2023 Urobilinogen Ql (U) Normal mg/dl Normal [facility] Glucose Glucometer (BldC) [M ass/Vol]Ordered By: Gabriel Giraldo on 01-08-2023 Glucose [Mass/Vol] 201 mg/dL 74-106 [facility] Comment on above: MANAGEMENT OF PATIEN T CARE PER NURSING PROTOCOL Absolute lymphocyte countOrd ered By: Karen Aly on 01-07-2023 Lymphocytes Auto (Unsp spec) [#/Vol] 1.83 10*3/uL 0.83-4.51 [facility] Basophil percentageOrdered B y: Karen Aly on 01-07-2023 Basophil percentage 121 mg/dL 74-106 [facility] Basophil percentage 6.0 g/dL 6.4-8.2 [facility] Basophil percentage 0.70 mg/dL 0.20-1.00 [facility] Basophil percentage 138 mmol/L 136-145 [facility] Basophil percentage 4.1 mmol/L 3.5-5.1 [facility] Basophil percentage 106 mmol/L 98-107 [facility] Basophils (Bld) [#/Vol] 9.3 10*3/uL 4.4-11.0 [facility] Basophils (Bld) [#/Vol] 6.4 10*3/uL 2.0-7.7 [facility] Basophils/100 WBC (Bld) 0.6 % 0-1 [facility] Basophils/100 WBC (Bld) 69.0 % 47-70 [facility] Basophils/100 WBC (Bld) 2.4 % 0-5 [facility] Bilirubin [Mass/Vol] 0.70 mg/dL 0.20-1.00 [facility] Comment on above: For patients on eltr ombopag therapy, use of Dimension [place] TBIL is not recommended. Chloride [Moles/Vol] 106 mmol/L 98-107 [facility] Eosinophils/100 WBC (Bld) 2.4 % 0-5 [facility] Glucose [Mass/Vol] 121 mg/dL 74-106 [facility] Comment on above: Fasting Glucose resu lt from 100 to 125 mg/dL suggests IMPAIRED HOMEOSTASIS per A.D.A. criteria. Neutrophils (Bld) [#/Vol] 6.4 10*3/uL 2.0-7.7 [facility] Neutrophils/100 WBC (Bld) 69.0 % 47-70 [facility] Potassium [Moles/Vol] 4.1 mmol/L 3.5-5.1 [facility] Protein [Mass/Vol] 6.0 g/dL 6.4-8.2 [facility] Sodium [Moles/Vol] 138 mmol/L 136-145 [facility] WBC (Bld) [#/Vol] 9.3 10*3/uL 4.4-11.0 [facility] Blood erythrocytes count (nu mber/volume)Ordered By: Karen Aly on 01-07-2023 RBC (Bld) [#/Vol] 4.90 10*6/uL 4.6-6.2 [facility] Blood hemoglobin measurement (mass/volume)Ordered By: Karen Aly on 01-07-2023 Hemoglobin (Bld) [Mass/Vol] 13.1 g/dL 13.0-16. 5 [facility] Blood lymphocytes/100 leukoc ytesOrdered By: Karen Jermain on 01-07-2023 Lymphocytes/100 WBC (Bld) 19.8 % 19-41 [facility] Blood monocytes/100 leukocyt esOrdered By: Karen Aly on 01-07-2023 Monocytes/100 WBC (Bld) 7.2 % 0-10 [facility] Blood platelet mean volumeOr dered By: Karen Aly on 01-07-2023 Platelet mean volume (Bld) [Entitic vol] 9.1 fL 6.2-12.0 [facility] Determination of erythrocyte mean corpuscular volume (MCV)Ordered By: Karen Aly on 01-07-2023 MCV (RBC) [Entitic vol] 83.5 fL 80-94 [facility] Hematocrit Auto (Bld) [Volum e fraction]Ordered By: Karen Aly on 01-07-2023 Hematocrit (Bld) [Volume fraction] 40.9 % 40-54 [facility] INR in Blood by Coagulation assayOrdered By: Karen Aly on 01-07-2023 INR Coag (Bld) [Relative time] 2.2 {INR} [facility] - Chemistry and C hemistry - challengeOrdered By: Karen Aly on 01-07-2023 ALP [Catalytic activity/Vol] 90 U/L 45-117 [facility] ALT [Catalytic activity/Vol] 18 U/L 16-61 [facility] CO2 [Moles/Vol] 24.0 mmol/L 21.0-32.0 [facility] Globulin (S) [Mass/Vol] 3.1 g/dL 2.2-4.2 [facility] Urea nitrogen/Creatinine [Mass ratio] 23.0 mg/mg 10-20 [facility] - CoagulationOrde red By: Karen lAy on 01-07-2023 PT Coag (PPP) [Time] 24.8 s 11.7-14.9 [facility] - Hematology and Cell countsOrdered By: Karen Aly on 01-07-2023 Erythrocyte distribution width (RBC) [Entitic vol] 43.7 fL 35.1-43.9 [facility] Erythrocyte distribution width (RBC) [Ratio] 14.5 % 11.6-14.6 [facility] Immature granulocytes/100 WBC (Bld) 1.000 % 0.0-0.9 [facility] Comment on above: IG% - Immature Granu locytes (promyelocytes, myelocytes and metamyelocytes) > 1% indicates that a LEFT SHIFT is Present. MCH (RBC) [Entitic mass] 26.7 pg 27.0-32.0 [facility] Nucleated RBC/100 WBC (Bld) [Ratio] 0 % 0-5 [facility] MCHC Auto (RBC) [Mass/Vol]Or dered By: Karen Aly on 01-07-2023 MCHC (RBC) [Mass/Vol] 32.0 g/dL 32-36 [facility] No Panel InformationOrdered By: Karen Aly on 01-07-2023 Estimated Creatinine Clearance Calc 63.83 ml/min [facility] Estimated GFR (MDRD) Amer 81 mL/min >60 [facility] Comment on above: GFR Calc Estimated GFR (MDRD) Non-Af Amer 67 mL/min >60 [facility] Comment on above: Non- GFR Calc 26.7 pg 27.0-32.0 [facility] 14.5 % 11.6-14.6 [facility] 43.7 fl 35.1-43.9 [facility] 1.000 % 0.0-0.9 [facility] 0 % 0-5 [facility] 24.8 SECONDS 11.7-14.9 [facility] 67 mL/min >60 [facility] 81 mL/min >60 [facility] 63.83 ml/min [facility] 23.0 RATIO 10-20 [facility] 3.1 g/dL 2.2-4.2 [facility] 90 U/L 45-117 [facility] 18 U/L 16-61 [facility] 24.0 mmol/L 21.0-32.0 [facility] Platelets bldOrdered By: Aut elena Aly on 01-07-2023 Platelets (Bld) [#/Vol] 216 10*3/uL 150-450 [facility] Serum or plasma albumin antoine urement (mass/volume)Ordered By: Karen Aly on 01-07-2023 Albumin [Mass/Vol] 2.9 g/dL 3.2-5.0 [facility] Serum or plasma albumin/glob ulin mass ratioOrdered By: Karen Aly on 01-07-2023 Albumin/Globulin [Mass ratio] 0.9 {ratio} 0.9-2.4 [facility] Serum or plasma calcium antoine urement (mass/volume)Ordered By: Karen Aly on 01-07-2023 Calcium [Mass/Vol] 8.8 mg/dL 8.5-10.1 [facility] Serum or plasma creatinine m easurement (mass/volume)Ordered By: Karen Aly on 01-07-2023 Creatinine [Mass/Vol] 1.13 mg/dL 0.70-1.30 [facility] Comment on above: The validity of the calculated GFR & GFRAA in patients over 70 years has not been determined. Clinical correlation is essential. Serum or plasma urea nitroge n measurement (mass/volume)Ordered By: Karen Aly on 01-07-2023 Urea nitrogen [Mass/Vol] 26 mg/dL 7-18 [facility] Thin prep Papanicolaou smear with manual screeningOrdered By: Karen Aly on 01-07-2023 Thin prep Papanicolaou smear with manual screening 13 U/L 15-37 [facility] Thin prep Papanicolaou smear with manual screening 8 5-15 [facility] Basophil percentageOrdered B y: Karen Aly on 01-05-2023 Basophil percentage 87 mg/dL <200 [facility] Basophil percentage 116 mg/dL <199 [facility] Cholesterol [Mass/Vol] 87 mg/dL <200 [facility] Comment on above: <200 mg/dL Desirable 200-240 mg/dL Borderline >240 mg/dL High Risk Triglyceride [Mass/Vol] 116 mg/dL <199 [facility] Comment on above: The drugs N-Acetylcy steine and Metamizole may falsely depress this assay.Serum Triglycerides Reference Interval Normal <150 mg/dL Borderline high 150 - 199 mg/dL High 200 - 499 mg/dL Very High > or = 500 mg/dL No Panel InformationOrdered By: Karen Aly on 01-05-2023 Thyroid Stimulating Hormone (TSH) 1.13 uIU/mL 0.358-3.74 [facility] 1.13 uIU/mL 0.358-3.74 [facility] Serum or plasma cholesterol in HDL measurement (mass/volume)Ordered By: Karen Aly on 01-05-2023 Cholesterol in HDL [Mass/Vol] 37 mg/dL >40 [facility] Comment on above: The drugs N-Acetylcy steine and Metamizole may falsely depress this assay. Reference Range HDL <40 mg/dL Low HDL Cholesterol HDL >or= 60 mg/dL High HDL Cholesterol Serum or plasma cholesterol in VLDL measurement (mass/volume)Ordered By: Karen Aly on 01-05-2023 Cholesterol in VLDL [Mass/Vol] 23 mg/dL 5-40 [facility] Serum or plasma low density lipoprotein (LDL) cholesterol measurement (mass/volume)Ordered By: Karen Aly on 01-05-2023 Cholesterol in LDL [Mass/Vol] 27 mg/dL 0-130 [facility] Whole blood hemoglobin A1c/t otal hemoglobin ratio (mass fraction)Ordered By: Karen Aly on 01-05-2023 HbA1c (Bld) [Mass fraction] 5.8 % 3.8-5.6 [facility] Comment on above: Normal < 5.7 % Predi abetic 5.7 - 6.4 % Diabetic >or= 6.5 % Please note range changes. Absolute lymphocyte countOrd ered By: Dr. Roberts on 01-04-2023 Lymphocytes Auto (Unsp spec) [#/Vol] 1.31 10*3/uL 0.83-4.51 [facility] Assessment of wrist artery p atency prior to arterial punctureOrdered By: Dr. Aly on 01-04-2023 Arterial patency Wrist artery --pre arterial puncture N/A [facility] Bacteria identified Cx Nom ( U)Ordered By: Maggy Roberts on 01-04-2023 Culture, urine Positive [facility] Base excessOrdered By: Dr. Freddy pettit on 01-04-2023 Base excess Calc (BldV) [Moles/Vol] 0 mmol/L -2-2 [facility] Basophil percentageOrdered B y: Dr. Aly on 01-04-2023 Basophil percentage 23.7 mmol/L - [facility] Basophils/100 WBC (Bld) 96 % 95-99 [facility] Ammonia (P) [Moles/Vol] 17.0 umol/L - [facility] Basophil percentageOrdered B y: Karen Aly on 01-04-2023 Basophil percentage 17.0 umol/L - [facility] Basophil percentageOrdered B y: Dr. Roberts on 01-04-2023 Basophil percentage 0 SEEN /hpf 0-5 [facility] Basophils/100 WBC (Bld) 0.4 % 0-1 [facility] Bilirubin [Mass/Vol] 0.70 mg/dL 0.20-1.00 [facility] Comment on above: For patients on eltr ombopag therapy, use of Dimension [place] TBIL is not recommended. Chloride [Moles/Vol] 105 mmol/L 98-107 [facility] Eosinophils/100 WBC (Bld) 1.7 % 0-5 [facility] Glucose [Mass/Vol] 133 mg/dL 74-106 [facility] Comment on above: Fasting Glucose resu lt greater than or equal to 126 mg/dL suggests DIABETES MELLITUS per A.D.A. criteria. Neutrophils (Bld) [#/Vol] 8.0 10*3/uL 2.0-7.7 [facility] Neutrophils/100 WBC (Bld) 78.3 % 47-70 [facility] Potassium [Moles/Vol] 4.2 mmol/L 3.5-5.1 [facility] Protein [Mass/Vol] 6.3 g/dL 6.4-8.2 [facility] Sodium [Moles/Vol] 139 mmol/L 136-145 [facility] WBC (Bld) [#/Vol] 10.2 10*3/uL 4.4-11.0 [facility] Bilirubin Test strip Ql (U)O rdered By: Dr. Roberts on 01-04-2023 Bilirubin Ql (U) Negative Negative [facility] Blood erythrocytes count (nu mber/volume)Ordered By: Dr. Roberts on 01-04-2023 RBC (Bld) [#/Vol] 5.09 10*6/uL 4.6-6.2 [facility] Blood hemoglobin measurement (mass/volume)Ordered By: Dr. Roberts on 01-04-2023 Hemoglobin (Bld) [Mass/Vol] 13.5 g/dL 13.0-16. 5 [facility] Blood lymphocytes/100 leukoc ytesOrdered By: Dr. Roberts on 01-04-2023 Lymphocytes/100 WBC (Bld) 12.8 % 19-41 [facility] Blood monocytes/100 leukocyt esOrdered By: Dr. Roberts on 01-04-2023 Monocytes/100 WBC (Bld) 5.9 % 0-10 [facility] Blood platelet mean volumeOr dered By: Dr. Roberts on 01-04-2023 Platelet mean volume (Bld) [Entitic vol] 8.7 fL 6.2-12.0 [facility] CO2 (BldA) [Partial pressure ]Ordered By: Dr. Aly on 01-04-2023 CO2 (Bld) [Partial pressure] 33.9 mm[Hg] 35-45 [facility] Culture, urineOrdered By: Eddie Roberts on 01-04-2023 Bacteria identified Cx Nom (U) Positive [facility] Determination of erythrocyte mean corpuscular volume (MCV)Ordered By: Dr. Roberts on 01-04-2023 MCV (RBC) [Entitic vol] 82.1 fL 80-94 [facility] Direct bilirubinOrdered By: Dr. Roberts on 01-04-2023 Bilirubin.direct [Mass/Vol] 0.20 mg/dL 0.00-0.3 0 [facility] Hematocrit Auto (Bld) [Volum e fraction]Ordered By: Dr. Roberts on 01-04-2023 Hematocrit (Bld) [Volume fraction] 41.8 % 40-54 [facility] INR in Blood by Coagulation assayOrdered By: Dr. Roberts on 01-04-2023 INR Coag (Bld) [Relative time] 3.1 {INR} [facility] Ketones Test strip Ql (U)Ord ered By: Dr. Roberts on 01-04-2023 Ketones Ql (U) Negative Negative [facility] - Chemistry and C hemistry - challengeOrdered By: Karen Aly on 01-04-2023 Cobalamin (Vitamin B12) [Mass/Vol] 260 pg/mL 211-911 [facility] - Chemistry and C hemistry - challengeOrdered By: Dr. Aly on 01-04-2023 Magnesium [Mass/Vol] 1.8 mg/dL 1.6-2.6 [facility] - Chemistry and C hemistry - challengeOrdered By: Dr. Roberts on 01-04-2023 ALP [Catalytic activity/Vol] 102 U/L 45-117 [facility] ALT [Catalytic activity/Vol] 18 U/L 16-61 [facility] CO2 [Moles/Vol] 25.0 mmol/L 21.0-32.0 [facility] Globulin (S) [Mass/Vol] 3.2 g/dL 2.2-4.2 [facility] Urea nitrogen/Creatinine [Mass ratio] 18.7 mg/mg 10-20 [facility] - CoagulationOrde red By: Dr. Roberts on 01-04-2023 PT Coag (PPP) [Time] 32.6 s 11.7-14.9 [facility] - Hematology and Cell countsOrdered By: Dr. Roberts on 01-04-2023 Erythrocyte distribution width (RBC) [Entitic vol] 42.3 fL 35.1-43.9 [facility] Erythrocyte distribution width (RBC) [Ratio] 14.2 % 11.6-14.6 [facility] Immature granulocytes/100 WBC (Bld) 0.900 % 0.0-0.9 [facility] Comment on above: IG% - Immature Granu locytes (promyelocytes, myelocytes and metamyelocytes) > 1% indicates that a LEFT SHIFT is Present. MCH (RBC) [Entitic mass] 26.5 pg 27.0-32.0 [facility] Nucleated RBC/100 WBC (Bld) [Ratio] 0 % 0-5 [facility] - Microbiology an d Antimicrobial susceptibilityOrdered By: Maggy Roberts on 01-04-2023 Bacteria identified Cx Nom (Bld) No growth in 5 days. [facility] MCHC Auto (RBC) [Mass/Vol]Or dered By: Dr. Roberts on 01-04-2023 MCHC (RBC) [Mass/Vol] 32.3 g/dL 32-36 [facility] Mucus LM Ql (Urine sed)Order ed By: Dr. Roberts on 01-04-2023 Mucus Ql (Urine sed) 0 SEEN /hpf [facility] Nitrite Test strip Ql (U)Ord ered By: Dr. Roberts on 01-04-2023 Nitrite Ql (U) Negative Negative [facility] No Panel InformationOrdered By: Dr. Aly on 01-04-2023 Blood Gas Oxygen Percent 21 [facility] Blood Gas Sample Site R Brach [facility] Blood Gas Specimen Type ART [facility] Blood Gas Total CO2 25 mmol/L [facility] Oxygen Delivery Device Room Air [facility] No Panel InformationOrdered By: Karen Aly on 01-04-2023 ART [facility] R Brach [facility] Room Air [facility] 21 [facility] 25 mmol/L [facility] 1.8 mg/dL 1.6-2.6 [facility] 260 pg/mL 211-911 [facility] No Panel InformationOrdered By: Maggy Roberts on 01-04-2023 No growth in 5 days. [facility] 7 pg/mL 3.0-78.0 [facility] No Panel InformationOrdered By: Dr. Roberts on 01-04-2023 Estimated Creatinine Clearance Calc 58.64 ml/min [facility] Estimated GFR (MDRD) Amer 74 mL/min >60 [facility] Comment on above: GFR Calc Estimated GFR (MDRD) Non-Af Amer 61 mL/min >60 [facility] Comment on above: Non- GFR Calc Troponin I High Sensitivity 7 pg/mL 3.0-78.0 [facility] Comment on above: Please Note: New Thania t Units and Gender Specific Reference Ranges. For more information see Policy Stat Procedure [place] High Sensitivity Troponin (TNIH) and attachments. Oxygen (BldA) [Partial press ure]Ordered By: Dr. Aly on 01-04-2023 Oxygen (Bld) [Partial pressure] 78 mmHG 75-100 [facility] Platelets bldOrdered By: Dr. Roberts on 01-04-2023 Platelets (Bld) [#/Vol] 228 10*3/uL 150-450 [facility] Protein Test strip Ql (U)Ord ered By: Dr. Roberts on 01-04-2023 Protein Ql (U) 15 mg/dl Negative [facility] Serum Treponema species anti body detectionOrdered By: Karen Aly on 01-04-2023 Treponema sp Ab Ql (S) Non-Reactive [facility] Serum or plasma albumin antoine urement (mass/volume)Ordered By: Dr. Roberts on 01-04-2023 Albumin [Mass/Vol] 3.1 g/dL 3.2-5.0 [facility] Serum or plasma calcium antoine urement (mass/volume)Ordered By: Dr. Roberts on 01-04-2023 Calcium [Mass/Vol] 8.6 mg/dL 8.5-10.1 [facility] Serum or plasma creatinine m easurement (mass/volume)Ordered By: Dr. Roberts on 01-04-2023 Creatinine [Mass/Vol] 1.23 mg/dL 0.70-1.30 [facility] Comment on above: The validity of the calculated GFR & GFRAA in patients over 70 years has not been determined. Clinical correlation is essential. Serum or plasma folate measu rement (mass/volume)Ordered By: Karen Aly on 01-04-2023 Folate [Mass/Vol] 4.40 ng/mL 3.1-55.4 [facility] Serum or plasma urea nitroge n measurement (mass/volume)Ordered By: Dr. Roberts on 01-04-2023 Urea nitrogen [Mass/Vol] 23 mg/dL 7-18 [facility] Serum procalcitonin measurem entOrdered By: Karen Aly on 01-04-2023 Procalcitonin [Mass/Vol] ng/mL 0.00-0.09 [facility] Comment on above: A procalcitonin (PCT [...] Ql (Urine sed) 0-5 SEEN /hpf 0-5 [facility] Thin prep Papanicolaou smear with manual screeningOrdered By: Dr. Roberts on 01-04-2023 Thin prep Papanicolaou smear with manual screening 13 U/L 15-37 [facility] Thin prep Papanicolaou smear with manual screening 9 5-15 [facility] Urine blood detectionOrdered By: Dr. Roberts on 01-04-2023 RBC Ql (U) 10 /ul Negative [facility] RBC Ql (U) 0-5 SEEN /hpf 0-5 [facility] Urine clarityOrdered By: Dr. Roberts on 01-04-2023 Clarity (U) Sl. Cloudy Clear [facility] Urine color determinationOrd ered By: Dr. Roberts on 01-04-2023 Color (U) Yellow Yellow [facility] Urine glucose detectionOrder ed By: Dr. Roberts on 01-04-2023 Glucose Ql (U) 100 mg/dl Normal [facility] Urine leukocyte esterase det ection by dipstickOrdered By: Dr. Roberts on 01-04-2023 Leukocyte esterase Test strip Ql (U) Negative Negative [facility] Urine pHOrdered By: Dr. Yaya gallo on 01-04-2023 pH (U) 6.0 [pH] 5.0 - 8.0 [facility] Urine sediment bacteria coun t by microscopy (number/high power field)Ordered By: Dr. Roberts on 01-04-2023 Bacteria LM.HPF (Urine sed) [#/Area] 0 /[HPF] None Seen [facility] Urine specific gravity measu rementOrdered By: Dr. Roberts on 01-04-2023 Specific gravity (U) [Rel density] 1.020 1.002-1.03 0 [facility] Urobilinogen Auto test strip Ql (U)Ordered By: Dr. Roberts on 01-04-2023 Urobilinogen Ql (U) 4 mg/dl Normal [facility] pH measurementOrdered By: Dr Jose Aly on 01-04-2023 pH (Unsp spec) 7.45 [pH] 7.35-7.45 [facility] Absolute lymphocyte counton 07-11-2022 Lymphocytes Auto (Unsp spec) [#/Vol] 1.98 10*3/uL 0.83-4.51 [facility] Work Phone: Basophil percentageon 2021 Basophils/100 WBC (Bld) 0.6 % 0-1 [facility] Work Phone: Bilirubin [Mass/Vol] 0.90 mg/dL 0.20-1.00 [facility] Work Phone: [phone] Comment on above: For patients on eltr ombopag therapy, use of Dimension [place] TBIL is not recommended. Chloride [Moles/Vol] 105 mmol/L 98-107 [facility] Work Phone: Cholesterol [Mass/Vol] 102 mg/dL <200 [facility] Work Phone: Comment on above: <200 mg/dL Desirable 200-240 mg/dL Borderline >240 mg/dL High Risk Eosinophils/100 WBC (Bld) 4.1 % 0-5 [facility] Work Phone: Glucose [Mass/Vol] 103 mg/dL 74-106 [facility] Work Phone: Comment on above: Fasting Glucose resu lt from 100 to 125 mg/dL suggests IMPAIRED HOMEOSTASIS per A.D.A. criteria. Neutrophils (Bld) [#/Vol] 5.2 10*3/uL 2.0-7.7 [facility] Work Phone: Neutrophils/100 WBC (Bld) 63.5 % 47-70 [facility] Work Phone: Potassium [Moles/Vol] 3.5 mmol/L 3.5-5.1 [facility] Work Phone: Protein [Mass/Vol] 5.9 g/dL 6.4-8.2 [facility] Work Phone: Sodium [Moles/Vol] 138 mmol/L 136-145 [facility] Work Phone: Triglyceride [Mass/Vol] 124 mg/dL <199 [facility] Work Phone: Comment on above: The drugs N-Acetylcy steine and Metamizole may falsely depress this assay.Serum Triglycerides Reference Interval Normal <150 mg/dL Borderline high 150 - 199 mg/dL High 200 - 499 mg/dL Very High > or = 500 mg/dL WBC (Bld) [#/Vol] 8.2 10*3/uL 4.4-11.0 [facility] Work Phone: Blood erythrocytes count (nu mber/volume)on 07-11-2022 RBC (Bld) [#/Vol] 4.75 10*6/uL 4.6-6.2 [facility] Work Phone: Blood hemoglobin measurement (mass/volume)on 07-11-2022 Hemoglobin (Bld) [Mass/Vol] 12.7 g/dL 13.0-16. 5 [facility] Work Phone: Blood lymphocytes/100 leukoc yteson 07-11-2022 Lymphocytes/100 WBC (Bld) 24.1 % 19-41 [facility] Work Phone: Blood monocytes/100 leukocyt eson 07-11-2022 Monocytes/100 WBC (Bld) 6.8 % 0-10 [facility] Work Phone: Blood platelet mean volumeon 07-11-2022 Platelet mean volume (Bld) [Entitic vol] 9.2 fL 6.2-12.0 [facility] Work Phone: Determination of erythrocyte mean corpuscular volume (MCV)on 07-11-2022 MCV (RBC) [Entitic vol] 82.7 fL 80-94 [facility] Work Phone: Glucose Glucometer (BldC) [M ass/Vol]on 07-11-2022 Glucose [Mass/Vol] 149 mg/dL 74-106 [facility] Work Phone: Comment on above: MANAGEMENT OF PATIEN T CARE PER NURSING PROTOCOL Hematocrit Auto (Bld) [Volum e fraction]on 07-11-2022 Hematocrit (Bld) [Volume fraction] 39.3 % 40-54 [facility] Work Phone: INR in Blood by Coagulation assayon 07-11-2022 INR Coag (Bld) [Relative time] 2.1 {INR} [facility] Work Phone: Laboratory - Chemistry and C hemistry - challengeon 07-11-2022 ALP [Catalytic activity/Vol] 106 U/L 45-117 [facility] Work Phone: ALT [Catalytic activity/Vol] 22 U/L 16-61 [facility] Work Phone: CO2 [Moles/Vol] 25.0 mmol/L 21.0-32.0 [facility] Work Phone: Globulin (S) [Mass/Vol] 2.9 g/dL 2.2-4.2 [facility] Work Phone: Magnesium [Mass/Vol] 1.9 mg/dL 1.6-2.6 [facility] Work Phone: Urea nitrogen/Creatinine [Mass ratio] 17.7 mg/mg 10-20 [facility] Work Phone: Laboratory - Coagulationon 1 09-11-2021 PT Coag (PPP) [Time] 23.6 s 11.7-14.9 [facility] Work Phone: Laboratory - Hematology and Cell countson 07-11-2022 Erythrocyte distribution width (RBC) [Entitic vol] 44.0 fL 35.1-43.9 [facility] Work Phone: Erythrocyte distribution width (RBC) [Ratio] 14.6 % 11.6-14.6 [facility] Work Phone: Immature granulocytes/100 WBC (Bld) 0.900 % 0.0-0.9 [facility] Work Phone: Comment on above: IG% - Immature Granu locytes (promyelocytes, myelocytes and metamyelocytes) > 1% indicates that a LEFT SHIFT is Present. MCH (RBC) [Entitic mass] 26.7 pg 27.0-32.0 [facility] Work Phone: Nucleated RBC/100 WBC (Bld) [Ratio] 0 % 0-5 [facility] Work Phone: MCHC Auto (RBC) [Mass/Vol]on 07-11-2022 MCHC (RBC) [Mass/Vol] 32.3 g/dL 32-36 [facility] Work Phone: No Panel Informationon 07-11 Estimated Creatinine Clearance Calc 64.82 ml/min [facility] Work Phone: Estimated GFR (MDRD) Amer 81 mL/min >60 [facility] Work Phone: Comment on above: GFR Calc Estimated GFR (MDRD) Non-Af Amer 67 mL/min >60 [facility] Work Phone: Comment on above: Non- GFR Calc Platelets bldon 07-11-2022 Platelets (Bld) [#/Vol] 200 10*3/uL 150-450 [facility] Work Phone: Serum or plasma albumin antoine urement (mass/volume)on 07-11-2022 Albumin [Mass/Vol] 3.0 g/dL 3.2-5.0 [facility] Work Phone: Serum or plasma albumin/glob ulin mass ratioon 07-11-2022 Albumin/Globulin [Mass ratio] 1.0 {ratio} 0.9-2.4 [facility] Work Phone: Serum or plasma calcium antoine urement (mass/volume)on 07-11-2022 Calcium [Mass/Vol] 8.6 mg/dL 8.5-10.1 [facility] Work Phone: Serum or plasma cholesterol in HDL measurement (mass/volume)on 07-11-2022 Cholesterol in HDL [Mass/Vol] 36 mg/dL >40 [facility] Work Phone: Comment on above: The drugs N-Acetylcy steine and Metamizole may falsely depress this assay. Reference Range HDL <40 mg/dL Low HDL Cholesterol HDL >or= 60 mg/dL High HDL Cholesterol Serum or plasma cholesterol in VLDL measurement (mass/volume)on 07-11-2022 Cholesterol in VLDL [Mass/Vol] 25 mg/dL 5-40 [facility] Work Phone: Serum or plasma creatinine m easurement (mass/volume)on 07-11-2022 Creatinine [Mass/Vol] 1.13 mg/dL 0.70-1.30 [facility] Work Phone: Comment on above: The validity of the calculated GFR & GFRAA in patients over 70 years has not been determined. Clinical correlation is essential. Serum or plasma low density lipoprotein (LDL) cholesterol measurement (mass/volume)on 07-11-2022 Cholesterol in LDL [Mass/Vol] 41 mg/dL 0-130 [facility] Work Phone: Serum or plasma urea nitroge n measurement (mass/volume)on 07-11-2022 Urea nitrogen [Mass/Vol] 20 mg/dL 7-18 [facility] Work Phone: Thin prep Papanicolaou smear with manual screeningon 07-11-2022 Thin prep Papanicolaou smear with manual screening 23 U/L 15-37 [facility] Work Phone: Thin prep Papanicolaou smear with manual screening 8 5-15 [facility] Work Phone: No Panel Informationon 07-10 Troponin I High Sensitivity 103 pg/mL 3.0-78.0 [facility] Work Phone: Comment on above: Please Note: New Thania t Units and Gender Specific Reference Ranges. For more information see Policy Stat Procedure [place] High Sensitivity Troponin (TNIH) and attachments. Thyroid Stimulating Hormone (TSH) 1.03 uIU/mL 0.358-3.74 [facility] Work Phone: Basophil percentageon 2021 Basophil percentage 0-5 SEEN /hpf 0-5 [facility] Work Phone: Bilirubin Test strip Ql (U)o n 07-09-2022 Bilirubin Ql (U) Negative Negative [facility] Work Phone: Hyaline casts LM.LPF (Urine sed) [#/Area]on 07-09-2022 Hyaline casts (Urine sed) [#/Area] 0 /[LPF] 0-5 [facility] Work Phone: Ketones Test strip Ql (U)on 07-09-2022 Ketones Ql (U) 5 mg/dl Negative [facility] Work Phone: [phone] Mucus LM Ql (Urine sed)on Mucus Ql (Urine sed) 1+ /hpf [facility] Work Phone: [phone] Nitrite Test strip Ql (U)on 07-09-2022 Nitrite Ql (U) Negative Negative [facility] Work Phone: Protein Test strip Ql (U)on 07-09-2022 Protein Ql (U) 30 mg/dl Negative [facility] Work Phone: Squamous epithelial cells de tection in urine sediment by light microscopyon 07-09-2022 Epithelial cells.squamous LM Ql (Urine sed) 0 SEEN /hpf 0-5 [facility] Work Phone: Urine blood detectionon 06-15 RBC Ql (U) 25 /ul Negative [facility] Work Phone: RBC Ql (U) 0-5 SEEN /hpf 0-5 [facility] Work Phone: Urine clarityon 07-09-2022 Clarity (U) Clear Clear [facility] Work Phone: Urine color determinationon 07-09-2022 Color (U) Yellow Yellow [facility] Work Phone: [phone] Urine glucose detectionon Glucose Ql (U) Normal mg/dl Normal [facility] Work Phone: Urine leukocyte esterase det ection by dipstickon 07-09-2022 Leukocyte esterase Test strip Ql (U) Negative Negative [facility] Work Phone: Urine pHon 07-09-2022 pH (U) 5.0 [pH] 5.0 - 8.0 [facility] Work Phone: Urine sediment bacteria coun t by microscopy (number/high power field)on 07-09-2022 Bacteria LM.HPF (Urine sed) [#/Area] 1 /[HPF] None Seen [facility] Work Phone: Urine specific gravity measu rementon 07-09-2022 Specific gravity (U) [Rel density] 1.025 1.002-1.03 0 [facility] Work Phone: Urobilinogen Auto test strip Ql (U)on 07-09-2022 Urobilinogen Ql (U) 1 mg/dl Normal [facility] Work Phone: INR in Blood by Coagulation assayon 03-07-2022 INR Coag (Bld) [Relative time] 2.9 {INR} [facility] Laboratory - Coagulationon 0 03-07-2022 PT Coag (PPP) [Time] 30.2 s 11.7-14.9 [facility] Work Phone: Absolute lymphocyte counton 03-02-2022 Lymphocytes Auto (Unsp spec) [#/Vol] 1.26 10*3/uL 0.83-4.51 [facility] Work Phone: [phone] Basophil percentageon 2021 Basophil percentage 0 SEEN /hpf 0-5 [facility] Work Phone: [phone] Basophils/100 WBC (Bld) 0.4 % 0-1 [facility] Work Phone: Chloride [Moles/Vol] 105 mmol/L 98-107 [facility] Work Phone: Eosinophils/100 WBC (Bld) 2.5 % 0-5 [facility] Work Phone: Glucose [Mass/Vol] 158 mg/dL 74-106 [facility] Work Phone: Comment on above: Fasting Glucose resu lt greater than or equal to 126 mg/dL suggests DIABETES MELLITUS per A.D.A. criteria. Neutrophils (Bld) [#/Vol] 8.8 10*3/uL 2.0-7.7 [facility] Work Phone: Neutrophils/100 WBC (Bld) 78.8 % 47-70 [facility] Work Phone: [phone] Potassium [Moles/Vol] 4.2 mmol/L 3.5-5.1 [facility] Work Phone: Sodium [Moles/Vol] 138 mmol/L 136-145 [place] [facility] Work Phone: [phone] WBC (Bld) [#/Vol] 11.2 10*3/uL 4.4-11.0 [facility] Work Phone: Bilirubin Test strip Ql (U)o n 03-02-2022 Bilirubin Ql (U) Negative Negative [facility] Work Phone: Blood erythrocytes count (nu mber/volume)on 03-02-2022 RBC (Bld) [#/Vol] 5.15 10*6/uL 4.6-6.2 [facility] Work Phone: Blood hemoglobin measurement (mass/volume)on 03-02-2022 Hemoglobin (Bld) [Mass/Vol] 13.8 g/dL 13.0-16. 5 [facility] Work Phone: Blood lymphocytes/100 leukoc yteson 03-02-2022 Lymphocytes/100 WBC (Bld) 11.2 % 19-41 [facility] Work Phone: [phone] Blood monocytes/100 leukocyt eson 03-02-2022 Monocytes/100 WBC (Bld) 5.7 % 0-10 [facility] Work Phone: Blood platelet mean volumeon 03-02-2022 Platelet mean volume (Bld) [Entitic vol] 9.0 fL 6.2-12.0 [facility] Work Phone: Determination of erythrocyte mean corpuscular volume (MCV)on 03-02-2022 MCV (RBC) [Entitic vol] 82.3 fL 80-94 [facility] Work Phone: Glucose Glucometer (BldC) [M ass/Vol]on 03-02-2022 Glucose [Mass/Vol] 158 mg/dL 74-106 [facility] Work Phone: Comment on above: MANAGEMENT OF PATIEN T CARE PER NURSING PROTOCOL Hematocrit Auto (Bld) [Volum e fraction]on 03-02-2022 Hematocrit (Bld) [Volume fraction] 42.4 % 40-54 [facility] Work Phone: Hyaline casts LM.LPF (Urine sed) [#/Area]on 03-02-2022 Hyaline casts (Urine sed) [#/Area] 0 /[LPF] 0-5 [facility] Work Phone: INR in Blood by Coagulation assayon 03-02-2022 INR Coag (Bld) [Relative time] 4.4 {INR} [facility] Work Phone: Comment on above: CRITICAL VALUE VERIF IED. CALLED TO [id number]/19/22 1559 Brie Ma.RESULTS READ BACK BY SAME . Ketones Test strip Ql (U)on 03-02-2022 Ketones Ql (U) 5 mg/dl Negative [facility] Work Phone: Laboratory - Chemistry and C hemistry - challengeon 03-02-2022 CO2 [Moles/Vol] 23.0 mmol/L 21.0-32.0 [facility] Work Phone: Urea nitrogen/Creatinine [Mass ratio] 16.9 mg/mg 10-20 [facility] Work Phone: Laboratory - Coagulationon 0 03-02-2022 PT Coag (PPP) [Time] 41.4 s 11.7-14.9 [facility] Work Phone: Laboratory - Hematology and Cell countson 03-02-2022 Erythrocyte distribution width (RBC) [Entitic vol] 41.4 fL 35.1-43.9 [facility] Work Phone: Erythrocyte distribution width (RBC) [Ratio] 14.0 % 11.6-14.6 [facility] Work Phone: Immature granulocytes/100 WBC (Bld) 1.400 % 0.0-0.9 [facility] Work Phone: Comment on above: IG% - Immature Granu locytes (promyelocytes, myelocytes and metamyelocytes) > 1% indicates that a LEFT SHIFT is Present. MCH (RBC) [Entitic mass] 26.8 pg 27.0-32.0 [facility] Work Phone: Nucleated RBC/100 WBC (Bld) [Ratio] 0 % 0-5 [facility] Work Phone: MCHC Auto (RBC) [Mass/Vol]on 03-02-2022 MCHC (RBC) [Mass/Vol] 32.5 g/dL 32-36 [facility] Work Phone: Mucus LM Ql (Urine sed)on Mucus Ql (Urine sed) 3+ /hpf [facility] Work Phone: Nitrite Test strip Ql (U)on 03-02-2022 Nitrite Ql (U) Negative Negative [facility] Work Phone: No Panel Informationon 03-02 Estimated Creatinine Clearance Calc 49.49 ml/min [facility] Work Phone: Estimated GFR (MDRD) Amer 60 mL/min >60 [facility] Work Phone: Comment on above: GFR Calc Estimated GFR (MDRD) Non-Af Amer 49 mL/min >60 [facility] Work Phone: Comment on above: Non- GFR Calc Troponin I High Sensitivity 11 pg/mL 3.0-78.0 [facility] Work Phone: Comment on above: Please Note: New Thania t Units and Gender Specific Reference Ranges. For more information see Policy Stat Procedure [place] High Sensitivity Troponin (TNIH) and attachments. Platelets bldon 03-02-2022 Platelets (Bld) [#/Vol] 269 10*3/uL 150-450 [facility] Work Phone: Protein Test strip Ql (U)on 03-02-2022 Protein Ql (U) 30 mg/dl Negative [facility] Work Phone: Serum or plasma calcium antoine urement (mass/volume)on 03-02-2022 Calcium [Mass/Vol] 9.4 mg/dL 8.5-10.1 [facility] Work Phone: Serum or plasma creatinine m easurement (mass/volume)on 03-02-2022 Creatinine [Mass/Vol] 1.48 mg/dL 0.70-1.30 [facility] Work Phone: Comment on above: The validity of the calculated GFR & GFRAA in patients over 70 years has not been determined. Clinical correlation is essential. Serum or plasma urea nitroge n measurement (mass/volume)on 03-02-2022 Urea nitrogen [Mass/Vol] 25 mg/dL 7-18 [facility] Work Phone: Squamous epithelial cells de tection in urine sediment by light microscopyon 03-02-2022 Epithelial cells.squamous LM Ql (Urine sed) 0-5 SEEN /hpf 0-5 [facility] Work Phone: Thin prep Papanicolaou smear with manual screeningon 03-02-2022 Thin prep Papanicolaou smear with manual screening 10 5-15 [facility] Work Phone: Urine blood detectionon 02-12 RBC Ql (U) 10 /ul Negative [facility] Work Phone: RBC Ql (U) 0-5 SEEN /hpf 0-5 [facility] Work Phone: Urine clarityon 03-02-2022 Clarity (U) Clear Clear [facility] Work Phone: Urine color determinationon 03-02-2022 Color (U) Yellow Yellow [facility] Work Phone: Urine glucose detectionon Glucose Ql (U) 50 mg/dl Normal [facility] Work Phone: Urine leukocyte esterase det ection by dipstickon 03-02-2022 Leukocyte esterase Test strip Ql (U) Negative Negative [facility] Work Phone: Urine pHon 03-02-2022 pH (U) 5.0 [pH] 5.0 - 8.0 [facility] Work Phone: Urine sediment bacteria coun t by microscopy (number/high power field)on 03-02-2022 Bacteria LM.HPF (Urine sed) [#/Area] 2 /[HPF] None Seen [facility] Work Phone: Urine specific gravity measu rementon 03-02-2022 Specific gravity (U) [Rel density] 1.025 1.002-1.03 0 [facility] Work Phone: Urobilinogen Auto test strip Ql (U)on 03-02-2022 Urobilinogen Ql (U) Normal mg/dl Normal [facility] Work Phone: ECHOon 01-09-2022 [facility] CNPNon 01-02-2022 CNPN Telephone (VICTORIANO) RICHARD ROY ([id number]) 1945 M Date Time Provider Department 01/02/22 JUSTINA MONIQUE During your visit today, we recorded the following information about you: Justina Garcia LPN 01/02/2022 7:43 AM Signed ----- Message from Justina Monique APRN.[employer]PERVISOR sent at 01/02/2022 7:38 AM EDT [...] Date Reviewed: 01/01/2022 Reviewed by: Justina Monique APRN.[employer] DESK SUPERVISOR - Fully Assessed Reason for Visit: Results [...] mouth once daily. - blood sugar diagnostic (Integrated Corporate HealthTOUCH ULTRA TEST) test strip Test blood sugar(s) [...] INSULIN PEN NEEDLE UF) 31 gauge x 5/16" 1 Each four times daily. With insulin [...] Encounter Status:Closed by JUSTINA GARCIA on 01/02/22 [facility] CBC W Auto Differential pane l (Bld)on 01-01-2022 Abs Immature Gran 0.15 k/uL High <0.10 k/uL [facility] Basophils (Bld) [#/Vol] 0.06 10*3/uL <0.11 k/uL [facility] Basophils/100 WBC (Bld) 0.5 % [facility] Differential cell count method Nom (Bld) Auto [facility] Eosinophils (Bld) [#/Vol] 0.39 10*3/uL <0.46 k/ uL [facility] Eosinophils/100 WBC (Bld) 3.1 % [facility] Erythrocyte distribution width (RBC) [Ratio] 14.5 % 11.5 - 15.0 % [facility] Hematocrit (Bld) [Volume fraction] 46.6 % 39.0 - 51.0 % [facility] Hemoglobin (Bld) [Mass/Vol] 14.5 g/dL 13.0 - 17.0 g/dL [facility] Immature Gran % 1.2 % [facility] Lymphocytes (Bld) [#/Vol] 1.81 10*3/uL 1. 00 - 4.00 k/uL [facility] Lymphocytes/100 WBC (Bld) 14.5 % [facility] MCH (RBC) [Entitic mass] 26.6 pg 26. 0 - 34.0 pg [facility] MCHC (RBC) [Mass/Vol] 31.1 g/dL 30.5 - 36.0 g/dL [facility] MCV (RBC) [Entitic vol] 85.3 fL 80.0 - 100.0 fL [facility] Monocytes (Bld) [#/Vol] 0.86 10*3/uL <0.87 k/uL [facility] Monocytes/100 WBC (Bld) 6.9 % [facility] Neutrophils (Bld) [#/Vol] 9.20 10*3/uL High 1. 45 - 7.50 k/uL [facility] Neutrophils/100 WBC (Bld) 73.8 % [facility] Nucleated RBC (Bld) [#/Vol] 10*3/uL <0.01 k/ uL [facility] Nucleated RBC/100 WBC (Bld) [Ratio] 0.0 /100 WBC [facility] Platelet mean volume (Bld) [Entitic vol] 9.7 fL 9.0 - 12.7 fL [facility] Platelets (Bld) [#/Vol] 287 10*3/uL 150 - 400 k/uL [facility] RBC (Bld) [#/Vol] 5.46 10*6/uL 4.20 - 6.00 m/uL [facility] WBC (Bld) [#/Vol] 12.47 10*3/uL High 3.70 - 11.00 k/uL [facility] Comprehensive metabolic 2000 panelon 01-01-2022 Albumin [Mass/Vol] 4.2 g/dL 3.9 - 4.9 g/dL [facility] ALP [Catalytic activity/Vol] 96 U/L 38 - 113 U/L [facility] ALT [Catalytic activity/Vol] 29 U/L 10 - 54 U/L [facility] Anion gap [Moles/Vol] 12 mmol/L 9 - 18 mmol/L [facility] AST [Catalytic activity/Vol] 20 U/L 14 - 40 U/L [facility] Bilirubin [Mass/Vol] 0.6 mg/dL 0.2 - 1 .3 mg/dL [facility] Calcium [Mass/Vol] 9.4 mg/dL 8.5 - 10. 2 mg/dL [facility] Chloride [Moles/Vol] 101 mmol/L 97 - 10 5 mmol/L [facility] CO2 [Moles/Vol] 25 mmol/L 22 - 30 mmol/L [facility] Creatinine [Mass/Vol] 1.20 mg/dL 0.73 - 1.22 mg/dL [facility] Estimated Glomerular Filtration Rate 63 mL/min/1.73m >=60 mL/min/1.7 3m [facility] Glucose [Mass/Vol] 118 mg/dL High 74 - 99 mg/dL [facility] Potassium [Moles/Vol] 4.4 mmol/L 3.7 - 5.1 mmol/L [facility] Protein [Mass/Vol] 6.6 g/dL 6.3 - 8.0 g/dL [facility] Sodium [Moles/Vol] 138 mmol/L 136 - 144 mmol/L [facility] Urea nitrogen [Mass/Vol] 15 mg/dL 9 - 24 mg/dL [facility] PSA/PROSTSPECAG SCRNon 01-01 Prostate specific Ag [Mass/Vol] 1.75 ng/mL <2.60 ng/mL [facility] UA DIP, URINE (POC)on 2021 BILIRUBIN UA (POCT) Negative Negative [facility] CLARITY UA (POCT) Clear [facility] COLOR UA (POCT) Dark [facility] GLUCOSE UA (POCT) 100 mg/dL Abnormal Negative mg/dL [facility] HEMOGLOBIN/BLOOD UA (POCT) Trace-intact Abnormal Negativ e [facility] KETONE UA (POCT) Negative Negative mg/dL [facility] LEUKOCYTES UA (POCT) Negative Negative [facility] NITRITE UA (POCT) Negative Negative [facility] PH UA (POCT) 5.5 4.5 - 8.0 [facility] Protein Ql (U) 30 mg/dL Abnormal Negative mg/dL [facility] SPECIFIC GRAVITY UA (POCT) >=1.030 1 .005 - 1.030 [facility] UROBILINOGEN UA (POCT) 1.0 E.U./dL Lanette l E.U./dL [facility] VITAMIN B12 BLOODon 01-02-20 Cobalamin (Vitamin B12) [Mass/Vol] 377 pg/mL 232-1,245 pg/mL [facility] Absolute lymphocyte counton 12-29-2021 Lymphocytes Auto (Unsp spec) [#/Vol] 1.56 10*3/uL 0.83-4.51 [facility] Work Phone: BCIDon 12-29-2021 Acinetobacter justen-baumanii complex Not detected Normal Not Detected [facility] [place] Comment on above: Performed By: #### B JIN #### [place] [address] Bacteroides fragilis Not detected Normal Not Detected [facility] [place] Comment on above: Performed By: #### B JIN #### [place] [address] BCID Comment See Comment Normal [facility] [place] Comment on above: Result Comment: Anti microbial resistance can occur via multiple mechanisms. A "Not Detected" result for antimicrobial resistance gene(s) does not indicate antimicrobial susceptibility. Culture identification and susceptibility results to follow. If BCID panel was negative ("Not Detected") for all targets, this does not exclude a blood stream infection. Our blood culture system detected growth. Culture identification and susceptibility testing (if appropriate) to follow. Performed By: #### B JIN #### [facility] [address] [place] [address] Kellie albicans Not detected Normal Not Detected [facility] ([place] Comment on above: Performed By: #### B JIN #### [facility] [address] [place] [address] Kellie auris Not detected Normal Not Detected [facility] [place] Comment on above: Performed By: #### B JIN #### [place] [address] Kellie glabrata Not detected Normal Not Detected [facility] [place] Comment on above: Performed By: #### B JIN #### [place] [address] Kellie krusei Not detected Normal Not Detected [facility] [place] Comment on above: Performed By: #### B JIN #### [place] [address] Kellie parapsilosis Not detected Normal Not Detected [facility] [place] Comment on above: Performed By: #### B JIN #### [place] [address] Kellie tropicalis Not detected Normal Not Detected [facility] [place] Comment on above: Performed By: #### B JIN #### [place] [address] Cryptococcus neoformans-gattii Not detected Normal Not Detected [facility] [place] Comment on above: Performed By: #### B JIN #### [place] [address] CTX-M (ESBL) Not Applicable Normal Not Detected [facility] [place] Comment on above: Performed By: #### B JIN #### [place] [id number] E. Coli Not detected Normal Not Detected [facility] [place] Comment on above: Performed By: #### B JIN #### [place] [address] Enterobacter cloacae Complex Not detected Normal Not Detected [facility] [place] Comment on above: Performed By: #### B JIN #### [address] [place], [place] [address] Enterobacterales Not detected Normal Not Detected [facility] [place] Comment on above: Performed By: #### B JIN #### [facility] [address] [place], [place] [id number] Enterococcus faecalis Not detected Normal Not Detected [facility] [place] Comment on above: Performed By: #### B JIN #### [facility] [address] [place], [place] [id number] Enterococcus faecium Not detected Normal Not Detected [facility] [place] Comment on above: Performed By: #### B JIN #### [place] [address] Haemophilus influenzae Not detected Normal Not Detected [facility] [place] Comment on above: Performed By: #### B JIN #### [place] [address] IMP (Carbapenemase) Not Applicable Normal Not Detected [facility] [place] Comment on above: Performed By: #### B JIN #### [place] [address] Klebsiella aerogenes Not detected Normal Not Detected [facility] [place] Comment on above: Performed By: #### B JIN #### [place] [address] Klebsiella oxytoca Not detected Normal Not Detected [facility] [place] Comment on above: Performed By: #### B JIN #### [place] [address] Klebsiella pneumoniae group Not detected Normal Not Detected [facility] [place] Comment on above: Performed By: #### B JIN #### [place] [address] KPC (Carbapenemase) Not Applicable Normal Not Detected [facility] [place] Comment on above: Performed By: #### B JIN #### [place] [id number] Listeria monocytogenes Not detected Normal Not Detected [facility] [place] Comment on above: Performed By: #### B JIN #### [place] [address] MCR-1 (Colistin Resistance) Not Applicable Normal Not Detected [facility] [place] Comment on above: Performed By: #### B JIN #### [place] [address] Mec A/C Detected Abnormal Not Detected [facility] [place] Comment on above: Performed By: #### B JIN #### [place] [address] Mec A/C-MREJ (MRSA) Not Applicable Normal Not Detected [facility] [place] Comment on above: Performed By: #### B JIN #### [place] [address] NDM (Carbapenemase) Not Applicable Normal Not Detected [facility] [place] Comment on above: Performed By: #### B JIN #### [place] [address] Neisseria meningitidis (Encapsalated) Not detected Normal Not Detected [facility] [place] Comment on above: Performed By: #### B JIN #### [place] [address] OXA-48 like (Carbapenemase) Not Applicable Normal Not Detected [facility] [place] Comment on above: Performed By: #### B JIN #### [place] [address] Proteus Not detected Normal Not Detected [facility] [place] Comment on above: Performed By: #### B JIN #### [place] [address] Pseudomonas aeruginosa Not detected Normal Not Detected [facility] [place] Comment on above: Performed By: #### B JIN #### [place] [address] S. agalactiae Org specific cx Ql (Vag fld) Not detected Normal Not Detected [facility] [place] Comment on above: Performed By: #### B JIN #### [place] [address] Salmonella species Not detected Normal Not Detected [facility] [place] Comment on above: Performed By: #### B JIN #### [id number] [address] [address] Serratia marcescens Not detected Normal Not Detected [facility] ([place]) Comment on above: Performed By: #### B JIN #### [address] [address] Staphylococcus Detected Abnormal Not Detected [facility] ([place]) Comment on above: Performed By: #### B JIN #### [address] [address] Staphylococcus aureus Not detected Normal Not Detected [facility] ([place]) Comment on above: Result Comment: If S taphylococcus aureus is "Detected", an Infectious Disease physician consult is required on identification. Performed By: #### B JIN #### [place] [address] Staphylococcus epidermidis Detected Abnormal N ot Detected [facility] ([place]) Comment on above: Performed By: #### B JIN #### [place] [id number] Staphylococcus lugdunensis Not detected Normal N ot Detected [facility] ([place]) Comment on above: Performed By: #### B JIN #### [place] [address] Stenotropomonas maltophilia Not detected Normal Not Detected [facility] ([place]) Comment on above: Performed By: #### B JIN #### [address] [address] Streptococcus Not detected Normal Not Detected [facility] ([place]) Comment on above: Performed By: #### B JIN #### [place] [id number] Streptococcus pneumoniae Not detected Normal Not Detected [facility] ([place]) Comment on above: Performed By: #### B JIN #### [address] [address] Streptococcus pyogenes Not detected Normal Not Detected [facility] ([place]) Comment on above: Performed By: #### B JIN #### [address] [address] Van A/B Not Applicable Normal Not Detected [facility] ([place]) Comment on above: Performed By: #### B JIN #### [facility] [address] [place] [address] VIM (Carbapenemase) Not Applicable Normal Not Detected [facility] ([place]) Comment on above: Performed By: #### B JIN #### [facility] [address] [place] [address] Basophil percentageon 2021 Basophils/100 WBC (Bld) 0.3 % 0-1 [facility] Work Phone: Chloride [Moles/Vol] 108 mmol/L 98-107 [facility] Work Phone: [phone] Eosinophils/100 WBC (Bld) 3.2 % 0-5 [facility] Work Phone: Glucose [Mass/Vol] 109 mg/dL 74-106 [facility] Work Phone: Comment on above: Fasting Glucose resu lt from 100 to 125 mg/dL suggests IMPAIRED HOMEOSTASIS per A.D.A. criteria. Neutrophils (Bld) [#/Vol] 6.6 10*3/uL 2.0-7.7 [facility] Work Phone: Neutrophils/100 WBC (Bld) 70.4 % 47-70 [facility] Work Phone: Potassium [Moles/Vol] 4.1 mmol/L 3.5-5.1 [facility] Work Phone: Sodium [Moles/Vol] 140 mmol/L 136-145 [facility] Work Phone: WBC (Bld) [#/Vol] 9.4 10*3/uL 4.4-11.0 [facility] Work Phone: Blood erythrocytes count (nu mber/volume)on 12-29-2021 RBC (Bld) [#/Vol] 4.61 10*6/uL 4.6-6.2 [facility] Work Phone: Blood hemoglobin measurement (mass/volume)on 12-29-2021 Hemoglobin (Bld) [Mass/Vol] 12.4 g/dL 13.0-16. 5 [facility] Work Phone: [phone] Blood lymphocytes/100 leukoc yteson 12-29-2021 Lymphocytes/100 WBC (Bld) 16.7 % 19-41 [facility] Work Phone: Blood monocytes/100 leukocyt eson 12-29-2021 Monocytes/100 WBC (Bld) 8.7 % 0-10 [facility] Work Phone: Blood platelet mean volumeon 12-29-2021 Platelet mean volume (Bld) [Entitic vol] 9.3 fL 6.2-12.0 [facility] Work Phone: Determination of erythrocyte mean corpuscular volume (MCV)on 12-29-2021 MCV (RBC) [Entitic vol] 82.9 fL 80-94 [facility] Work Phone: Glucose Glucometer (BldC) [M ass/Vol]on 12-29-2021 Glucose [Mass/Vol] 129 mg/dL 74-106 [facility] Work Phone: Comment on above: MANAGEMENT OF PATIEN T CARE PER NURSING PROTOCOL Hematocrit Auto (Bld) [Volum e fraction]on 12-29-2021 Hematocrit (Bld) [Volume fraction] 38.2 % 40-54 [facility] Work Phone: Laboratory - Chemistry and C hemistry - challengeon 12-29-2021 CO2 [Moles/Vol] 27.0 mmol/L 21.0-32.0 [facility] Work Phone: Urea nitrogen/Creatinine [Mass ratio] 16.5 mg/mg 10-20 [facility] Work Phone: Laboratory - Hematology and Cell countson 12-29-2021 Erythrocyte distribution width (RBC) [Entitic vol] 42.5 fL 35.1-43.9 [facility] Work Phone: Erythrocyte distribution width (RBC) [Ratio] 14.2 % 11.6-14.6 [facility] Work Phone: Immature granulocytes/100 WBC (Bld) 0.700 % 0.0-0.9 [facility] Work Phone: Comment on above: IG% - Immature Granu locytes (promyelocytes, myelocytes and metamyelocytes) > 1% indicates that a LEFT SHIFT is Present. MCH (RBC) [Entitic mass] 26.9 pg 27.0-32.0 [facility] Work Phone: Nucleated RBC/100 WBC (Bld) [Ratio] 0 % 0-5 [facility] Work Phone: MCHC Auto (RBC) [Mass/Vol]on 12-29-2021 MCHC (RBC) [Mass/Vol] 32.5 g/dL 32-36 [facility] Work Phone: No Panel Informationon 12-29 Estimated Creatinine Clearance Calc 71.11 ml/min [facility] Work Phone: Estimated GFR (MDRD) Amer 91 mL/min >60 [facility] Work Phone: Comment on above: GFR Calc Estimated GFR (MDRD) Non-Af Amer 75 mL/min >60 [facility] Work Phone: Comment on above: Non- GFR Calc Platelets bldon 12-29-2021 Platelets (Bld) [#/Vol] 177 10*3/uL 150-450 [facility] Work Phone: Serum or plasma calcium antoine urement (mass/volume)on 12-29-2021 Calcium [Mass/Vol] 8.4 mg/dL 8.5-10.1 [facility] Work Phone: Serum or plasma creatinine m easurement (mass/volume)on 12-29-2021 Creatinine [Mass/Vol] 1.03 mg/dL 0.70-1.30 [facility] Work Phone: Comment on above: The validity of the calculated GFR & GFRAA in patients over 70 years has not been determined. Clinical correlation is essential. Serum or plasma urea nitroge n measurement (mass/volume)on 12-29-2021 Urea nitrogen [Mass/Vol] 17 mg/dL 7-18 [facility] Work Phone: Thin prep Papanicolaou smear with manual screeningon 12-29-2021 Thin prep Papanicolaou smear with manual screening 5 5-15 [facility] Work Phone: Basophil percentageon 2021 Lactate [Moles/Vol] 1.9 mmol/L 0.4-2.0 [facility] Work Phone: COon 12-28-2021 Carbon Monoxide Level See Comments Normal [facility] ([place]) Comment on above: Order Comment: See S eparate Report Performed By: #### L IP, MG, TROPHS, CK, LAC, GFR, CO, CMP ####[address] [place], [place] [address] Laboratory - Chemistry and C hemistry - challengeon 12-28-2021 Magnesium [Mass/Vol] 1.8 mg/dL 1.6-2.6 [facility] Work Phone: No Panel Informationon 12-28 Troponin I High Sensitivity 23 pg/mL 3.0-78.0 [facility] Work Phone: Comment on above: Please Note: New Thania t Units and Gender Specific Reference Ranges. For more information see Policy Stat Procedure [place] High Sensitivity Troponin (TNIH) and attachments. .Auto Diffon 12-27-2021 Basophil, Absolute 0.1 10 3/mcL Normal 0.0-0.2 [facility] ([place]) Comment on above: Performed By: #### L IP, MG, TROPHS, CK, LAC, GFR, CO, CMP #### [address] [address] Basophils/100 WBC (Bld) 0.4 % Normal 0.0-2.5 [facility] ([place]) Comment on above: Performed By: #### L IP, MG, TROPHS, CK, LAC, GFR, CO, CMP #### [place] [address] [place], [place] [address] Eosinophil, Absolute 0.1 10 3/mcL Normal 0.0-0.4 [facility] ([place]) Comment on above: Performed By: #### L IP, MG, TROPHS, CK, LAC, GFR, CO, CMP #### [address] [address] Eosinophils/100 WBC (Bld) 0.7 % Normal 0.0-7.0 [facility] ([place]) Comment on above: Performed By: #### L IP, MG, TROPHS, CK, LAC, GFR, CO, CMP #### [address] [address] Lymphocyte, Absolute 1.4 10 3/mcL Normal 0.8-3.9 [facility] ([place] Comment on above: Performed By: #### L IP, MG, TROPHS, CK, LAC, GFR, CO, CMP #### [address] [address] Lymphocytes/100 WBC (Bld) 9.6 % Low 10.0-50.0 [facility] ([place] Comment on above: Performed By: #### L IP, MG, TROPHS, CK, LAC, GFR, CO, CMP #### [address] [address] Monocyte, Absolute 0.8 10 3/mcL Normal 0.2-1.0 [facility] ([place] Comment on above: Performed By: #### L IP, MG, TROPHS, CK, LAC, GFR, CO, CMP #### [address] [address] Monocytes/100 WBC (Bld) 5.3 % Normal 1.7-13.0 [facility] ([place]) Comment on above: Performed By: #### L IP, MG, TROPHS, CK, LAC, GFR, CO, CMP #### [address] [address] Neutrophils/100 WBC (Bld) 84.0 % High 37.0-80.0 [facility] ([place] Comment on above: Performed By: #### L IP, MG, TROPHS, CK, LAC, GFR, CO, CMP #### [address] [place], [place] [address] .GFRon 12-27-2021 GFR 43 ml/min/1.73sqm Normal [facility] ([place] Comment on above: Result Comment: GFR Population [...] CK, LAC, GFR, CO, CMP ####[place] [address] [place], [place] [address] GFR Non- 35 ml/min/1.73sqm Normal [facility] ([place] Comment on above: Result Comment: GFR Population [...] TROPHS, CK, LAC, GFR, CO, CMP ####[place] [place], [place] [address] .MDWon 12-27-2021 Monocyte Distribution Width 15.91 Normal 0.00-20. 00 [facility] ([place] Comment on above: Result Comment: For ED adult patients suspected of sepsis, MDW<=20.0 does not rule out sepsis or risk of sepsis Performed By: #### L IP, MG, TROPHS, CK, LAC, GFR, CO, CMP ####[place] [address] [place], [place] [address] .NEUABSon 12-27-2021 Neutrophil, Absolute 12.6 10 3/mcL High 2.9-6.2 [facility] ([place]) Comment on above: Performed By: #### L IP, MG, TROPHS, CK, LAC, GFR, CO, CMP ####[place] [address] [place], [place] [address] Basophil percentageon 2021 Basophil percentage 3.8 mg/dL 2.5-4.9 [facility] Work Phone: Bilirubin [Mass/Vol] 0.80 mg/dL 0.20-1.00 [facility] Work Phone: Comment on above: For patients on eltr ombopag therapy, use of Dimension [place] TBIL is not recommended. Protein [Mass/Vol] 6.3 g/dL 6.4-8.2 [facility] Work Phone: CBCon 12-27-2021 Erythrocyte distribution width (RBC) [Ratio] 14.9 % High 11.5-14.5 [facility] ([place] Comment on above: Performed By: #### L IP, MG, TROPHS, CK, LAC, GFR, CO, CMP #### [place] [address] [address] Hematocrit (Bld) [Volume fraction] 43.2 % Normal 42.0-52.0 [facility] ([place] Comment on above: Performed By: #### L IP, MG, TROPHS, CK, LAC, GFR, CO, CMP #### [place] [address] [place], [place] [address] Hgb 14.4 G/dL Normal 14.0-18.0 [facility] ([place] Comment on above: Performed By: #### L IP, MG, TROPHS, CK, LAC, GFR, CO, CMP #### [address] [address] MCH (RBC) [Entitic mass] 26.8 pg Low 27.0-31.2 [facility] ([place] Comment on above: Performed By: #### L IP, MG, TROPHS, CK, LAC, GFR, CO, CMP #### [place] [id number] MCHC 33.4 G/dL Normal 31.8-35.4 [facility] ([place] Comment on above: Performed By: #### L IP, MG, TROPHS, CK, LAC, GFR, CO, CMP #### [place] [id number] MCV (RBC) [Entitic vol] 80.2 fL Normal 80.0-94.0 [facility] ([place]) Comment on above: Performed By: #### L IP, MG, TROPHS, CK, LAC, GFR, CO, CMP #### [place] [address] Platelet 305 10 3/mcL Normal 130-400 [facility] ([place] Comment on above: Performed By: #### L IP, MG, TROPHS, CK, LAC, GFR, CO, CMP #### [address] [address] Platelet mean volume (Bld) [Entitic vol] 7.5 fL Normal 7.4-10.4 [facility] ([place] Comment on above: Performed By: #### L IP, MG, TROPHS, CK, LAC, GFR, CO, CMP #### [place] [id number] RBC 5.39 10 6/mcL Normal 4.04-6.13 [facility] ([place] Comment on above: Performed By: #### L IP, MG, TROPHS, CK, LAC, GFR, CO, CMP #### [place] [phone] WBC 15.0 10 3/mcL High 4.6-10.8 [facility] ([place] Comment on above: Performed By: #### L IP, MG, TROPHS, CK, LAC, GFR, CO, CMP #### [place] [address] [place], [place] [address] CKon 12-27-2021 CK [Catalytic activity/Vol] 220 U/L Normal 39-308 [facility] ([place] Comment on above: Performed By: #### L IP, MG, TROPHS, CK, LAC, GFR, CO, CMP ####[place] [place], [place] [address] CMPon 12-27-2021 Albumin Level 3.8 G/dL Normal 3.4-4.8 [facility] ([place] Comment on above: Performed By: #### L IP, MG, TROPHS, CK, LAC, GFR, CO, CMP ####[address] [address] Albumin/Globulin [Mass ratio] 1.4 {ratio} Normal 1.1-2.5 [facility] ([place] Comment on above: Performed By: #### L IP, MG, TROPHS, CK, LAC, GFR, CO, CMP ####[address] [place], [place] [address] ALP [Catalytic activity/Vol] 105 U/L Normal 40-135 [facility] ([place] Comment on above: Performed By: #### L IP, MG, TROPHS, CK, LAC, GFR, CO, CMP ####[address] [address] ALT [Catalytic activity/Vol] 20 U/L Normal 16-63 [facility] ([place] Comment on above: Performed By: #### L IP, MG, TROPHS, CK, LAC, GFR, CO, CMP ####[address] [place], [place] [address] AST [Catalytic activity/Vol] 16 U/L Normal 10-40 [facility] ([place] Comment on above: Performed By: #### L IP, MG, TROPHS, CK, LAC, GFR, CO, CMP ####[facility] [place] [address] Bili Total 0.8 mg/dL Normal 0.2-1.0 [facility] ([place] Comment on above: Result Comment: Use of this assay is not recommended for patients undergoing treatment with eltrombopag due to the potential for falsely elevated results. Performed By: #### L IP, MG, TROPHS, CK, LAC, GFR, CO, CMP ####[address] [place], [place] [address] BUN/Creatinine Ratio 12 ratio Normal 7-27 [facility] ([place]) Comment on above: Performed By: #### L IP, MG, TROPHS, CK, LAC, GFR, CO, CMP ####[address] [place], [place] [address] Calcium [Mass/Vol] 9.4 mg/dL Normal 8.4-10.2 [facility] ([place]) Comment on above: Performed By: #### L IP, MG, TROPHS, CK, LAC, GFR, CO, CMP ####[address] [place], [place] [address] Chloride [Moles/Vol] 104 mmol/L Normal 98-107 [facility] ([place] Comment on above: Performed By: #### L IP, MG, TROPHS, CK, LAC, GFR, CO, CMP ####[address] [place], [place] [address] CO2 [Moles/Vol] 22 mmol/L Low 23-31 [facility] ([place] Comment on above: Performed By: #### L IP, MG, TROPHS, CK, LAC, GFR, CO, CMP ####[address] [place], [place] [address] Creatinine [Mass/Vol] 1.88 mg/dL High 0.70-1.30 [facility] ([place]) Comment on above: Performed By: #### L IP, MG, TROPHS, CK, LAC, GFR, CO, CMP ####[address] [place], [place] [address] Electrolyte Balance 13.0 mEq/L Normal 4.0-15.0 [facility] ([place]) Comment on above: Performed By: #### L IP, MG, TROPHS, CK, LAC, GFR, CO, CMP ####[address] [place], [place] [address] Globulin 2.8 G/dL Normal [facility] ([place] Comment on above: Performed By: #### L IP, MG, TROPHS, CK, LAC, GFR, CO, CMP ####[address] [place], [place] [address] Glucose [Mass/Vol] 205 mg/dL High 83-110 [facility] ([place] Comment on above: Performed By: #### L IP, MG, TROPHS, CK, LAC, GFR, CO, CMP ####[address] [place], [place] [address] Potassium [Moles/Vol] 5.2 mmol/L High 3.5-5.1 [facility] ([place] Comment on above: Performed By: #### L IP, MG, TROPHS, CK, LAC, GFR, CO, CMP ####[place] [place], [place] [address] Sodium [Moles/Vol] 139 mmol/L Normal 136-145 [facility] ([place] Comment on above: Performed By: #### L IP, MG, TROPHS, CK, LAC, GFR, CO, CMP ####[address] [place], [place] [address] Total Protein 6.6 G/dL Normal 6.4-8.2 [facility] ([place] Comment on above: Performed By: #### L IP, MG, TROPHS, CK, LAC, GFR, CO, CMP ####[place] [place], [place] [address] Urea nitrogen [Mass/Vol] 23 mg/dL High 7-18 [facility] ([place] Comment on above: Performed By: #### L IP, MG, TROPHS, CK, LAC, GFR, CO, CMP ####[place] [place], [place] [address] [id number] 12-27-2021 Date of Onset [id number] Invalid Interpretation Code [facility] ([place] Comment on above: Performed By: #### C OVD19, FLURSV #### [place] [address] Employed in Healthcare No [facility] ([place] Comment on above: Performed By: #### C OVD19, FLURSV #### [place] [address] First Test [facility] ([place] Comment on above: Performed By: #### C OVD19, FLURSV #### [place] [address] Hospitalized No [facility] ([place] Comment on above: Performed By: #### C OVD19, FLURSV #### [place] [address] ICU No [facility] [place] Comment on above: Performed By: #### C OVD19, FLURSV #### [place] [address] Not [facility] [place] Comment on above: Performed By: #### C OVD19, FLURSV #### [place] [address] Resides in Congregate Care Setting No [facility] ([place] Comment on above: Performed By: #### C OVD19, FLURSV #### [place] [address] SARS-CoV-2 (COVID-19) RNA ANGELY+probe Ql (Unsp spec) Positive Abnormal Negative [facility] ([place] Comment on above: Performed By: #### C OVD19, FLURSV #### [place] [address] SARS-CoV-2 (COVID-19) RNA ANGELY+probe Ql (Unsp spec) Normal [facility] ([place] Comment on above: Result Comment: Posi tive results are indicative of the presence of SARS-CoV-2 RNA; clinical correlation with patient history and other diagnostic information is necessary to determine patient infection status. Positive results do not rule out bacterial infection or co-infection with other viruses. The agent detected may not be the definite cause of disease. Laboratories within the [place] and its territories are required to [...] or from non-specific signals in the assay. [employer] SARS-CoV-2 Assay is a Real-Time reverse-transcriptase polymerase [...] Performed By: #### C OVD19, FLURSV #### [address] [address] Symptomatic as Defined by [facility] No Normal [facility] ([place] Comment on above: Performed By: #### C OVD19, FLURSV #### [address] [address] [address] HEAD OR BRAIN W/O CONTRAS Ton [...] 7:53:25 PM Ordering Provider: SREEDHAR LINARES Normal [facility] ([place] Carboxyhemoglobinon 12-28-19 Carboxyhemoglobin (Bld) [Mass/Vol] 1.9 % 0.0-1.5 [facility] Work Phone: Comment on above: * NON-SMOKER RANGE 1 .6 - 5.0% * LIGHT SMOKER RANGE 5.1 - 9.0% * HEAVY SMOKER RANGE FLURSVon 12-27-2021 Flu A PCR (AO) Negative Normal Negative [facility] ([place] Comment on above: Result Comment: Posi tive [...] virus (RSV) nucleic acid in nasopharyngeal swab ([employer]YROLL SUPERVISOR) specimens from patients with signs and symptoms of respiratory infection in conjunction with clinical and laboratory findings. The test is intended for use as an aid in the differential diagnosis of influenza A virus, influenza B virus, and RSV in humans and is not intended to detect influenza C. Performed By: #### C OVD19, FLURSV #### [place] [address] [place], [place] [address] Flu B PCR (AO) Negative Normal Negative [facility] ([place] Comment on above: Result Comment: Posi tive [...] REPEAT COLLECTION AND TESTING IS RECOMMENDED. The [employer] Flu A/B & RSV Assay is a real-time polymerase chain reaction (PCR) based qualitative in vitro diagnostic test for the direct detection and differentiation of influenza A virus, influenza B virus, and respiratory syncytial virus (RSV) nucleic acid in nasopharyngeal swab (PAYROLL SUPERVISOR) specimens from patients with signs and symptoms of respiratory infection in conjunction with clinical and laboratory findings. The test is intended for use as an aid in the differential diagnosis of influenza A virus, influenza B virus, and RSV in humans and is not intended to detect influenza C. Performed By: #### C OVD19, FLURSV #### [place] [address] [place], [place] [address] RSV PCR (AO) Negative Normal Negative [facility] ([place] Comment on above: Result Comment: Posi tive [...] REPEAT COLLECTION AND TESTING IS RECOMMENDED. The [employer] Flu A/B & RSV Assay is a real-time polymerase chain reaction (PCR) based qualitative in vitro diagnostic test for the direct detection and differentiation of influenza A virus, influenza B virus, and respiratory syncytial virus (RSV) nucleic acid in nasopharyngeal swab (PAYROLL SUPERVISOR) specimens from patients with signs and symptoms of respiratory infection in conjunction with clinical and laboratory findings. The test is intended for use as an aid in the differential diagnosis of influenza A virus, influenza B virus, and RSV in humans and is not intended to detect influenza C. Performed By: #### C OVD19, FLURSV #### [place] [address] [address] INR in Blood by Coagulation assayon 12-27-2021 INR Coag (Bld) [Relative time] 2.4 {INR} [facility] Work Phone: LABORATORYOrdered By: Ramiro Rascon [...] Lactic Acid Lvl 3.0 mmol/L High 0.4-2.0 [facility] ([place] Comment on above: Performed By: #### L AC ###[address] [place], [place] [address] Lactic Acid Lvl 4.6 mmol/L High 0.4-2.0 [facility] ([place] Comment on above: Performed By: #### L IP, MG, TROPHS, CK, LAC, GFR, CO, CMP ###[address] [place], [place] [address] LIPon 12-27-2021 Lipase Level 67 U/L Low 73-393 [facility] ([place] Comment on above: Performed By: #### L IP, MG, TROPHS, CK, LAC, GFR, CO, CMP ####[place] [address] [place], [place] [address] Laboratory - Chemistry and C hemistry - challengeon 12-27-2021 ALP [Catalytic activity/Vol] 89 U/L 45-117 [facility] Work Phone: ALT [Catalytic activity/Vol] 26 U/L 16-61 [facility] Work Phone: Globulin (S) [Mass/Vol] 3.1 g/dL 2.2-4.2 [facility] Work Phone: Laboratory - Coagulationon 0 12-27-2021 PT Coag (PPP) [Time] 25.5 s 11.7-14.9 [facility] Work Phone: MGon 12-27-2021 Magnesium [Mass/Vol] 1.3 mg/dL Low 1.8-2.4 [facility] ([place] Comment on above: Performed By: #### L IP, MG, TROPHS, CK, LAC, GFR, CO, CMP ####[place] [address] [address] PROon 12-27-2021 INR Coag (PPP) [Relative time] 2.7 {INR} High 0.9-1.2 [facility] ([place] Comment on above: Result Comment: Tony dard Dose 2.0 - 3.0 High Dose 2.5 - 3.5 The recommended therapeutic range for oral anticoagulant therapy is: LOW RISK: Prophylaxis of venous thrombosis INR: 2.0 - 3.0 Treatment of pulmonary embolism 2.0 - 3.0 Prevention of systemic embolism 2.0 - 3.0 HIGH RISK: Mechanical prosthetic valves 2.5 - 3.5 Performed By: #### P RO #### [address] [address] PT Coag (PPP) [Time] 31.6 s High 9.7-14.3 [facility] ([place] Comment on above: Performed By: #### P RO #### [address] [address] Serum or plasma albumin antoine urement (mass/volume)on 12-27-2021 Albumin [Mass/Vol] 3.2 g/dL 3.2-5.0 [facility] Work Phone: Serum or plasma albumin/glob ulin mass ratioon 12-27-2021 Albumin/Globulin [Mass ratio] 1.0 {ratio} 0.9-2.4 [facility] Work Phone: TROPHSon 12-27-2021 Troponin I High Sensitivity 11.1 ng/L Normal 0.0-76.2 [facility] ([place] Comment on above: Performed By: #### L IP, MG, TROPHS, CK, LAC, GFR, CO, CMP #### [place] [address] [place], [place] [address] Thin prep Papanicolaou smear with manual screeningon 12-27-2021 Thin prep Papanicolaou smear with manual screening 44 U/L 15-37 [facility] Work Phone: XR CHEST 1 VIEWon [...] 6:23:59 PM Ordering Provider: SREEDHAR LINARES Normal [facility] ([place] Absolute lymphocyte counton 12-06-2021 Lymphocytes Auto (Unsp spec) [#/Vol] 0.42 10*3/uL 0.83-4.51 [facility] Work Phone: Basophil percentageon 2021 Basophils/100 WBC (Bld) 0.4 % 0-1 [facility] Work Phone: Chloride [Moles/Vol] 105 mmol/L 98-107 [facility] Work Phone: Eosinophils/100 WBC (Bld) 2.3 % 0-5 [facility] Work Phone: Glucose [Mass/Vol] 138 mg/dL 74-106 [facility] Work Phone: Comment on above: Fasting Glucose resu lt greater than or equal to 126 mg/dL suggests DIABETES MELLITUS per A.D.A. criteria. Neutrophils (Bld) [#/Vol] 7.5 10*3/uL 2.0-7.7 [facility] Work Phone: Neutrophils/100 WBC (Bld) 81.2 % 47-70 [facility] Work Phone: Potassium [Moles/Vol] 3.7 mmol/L 3.5-5.1 [facility] Work Phone: [phone] Sodium [Moles/Vol] 138 mmol/L 136-145 [facility] Work Phone: WBC (Bld) [#/Vol] 9.3 10*3/uL 4.4-11.0 [facility] Work Phone: Basophil percentage 0-5 SEEN /hpf 0-5 [facility] Work Phone: Bilirubin Test strip Ql (U)o n 12-06-2021 Bilirubin Ql (U) Negative Negative [facility] Work Phone: Blood erythrocytes count (nu mber/volume)on 12-06-2021 RBC (Bld) [#/Vol] 5.07 10*6/uL 4.6-6.2 [facility] Work Phone: Blood hemoglobin measurement (mass/volume)on 12-06-2021 Hemoglobin (Bld) [Mass/Vol] 13.8 g/dL 13.0-16. 5 [facility] Work Phone: Blood lymphocytes/100 leukoc yteson 12-06-2021 Lymphocytes/100 WBC (Bld) 4.5 % 19-41 [facility] Work Phone: Blood manual differential co mment interpretation (narrative result)on 12-06-2021 Manual differential comment Ori (Bld) [Interp] SCANNED [facility] Work Phone: [phone] Comment on above: LYMPHOPENIA NOTED Blood monocytes/100 leukocyt eson 12-06-2021 Monocytes/100 WBC (Bld) 8.6 % 0-10 [facility] Work Phone: Blood platelet mean volumeon 12-06-2021 Platelet mean volume (Bld) [Entitic vol] 9.2 fL 6.2-12.0 [facility] Work Phone: Determination of erythrocyte mean corpuscular volume (MCV)on 12-06-2021 MCV (RBC) [Entitic vol] 83.0 fL 80-94 [facility] Work Phone: Hematocrit Auto (Bld) [Volum e fraction]on 12-06-2021 Hematocrit (Bld) [Volume fraction] 42.1 % 40-54 [facility] Work Phone: INR in Blood by Coagulation assayon 12-06-2021 INR Coag (Bld) [Relative time] 3.3 {INR} [facility] Work Phone: Ketones Test strip Ql (U)on 12-06-2021 Ketones Ql (U) 5 mg/dl Negative [facility] Work Phone: Laboratory - Chemistry and C hemistry - challengeon 12-06-2021 CO2 [Moles/Vol] 24.0 mmol/L 21.0-32.0 [facility] Work Phone: Urea nitrogen/Creatinine [Mass ratio] 14.2 mg/mg 10-20 [facility] Work Phone: Laboratory - Coagulationon 0 12-06-2021 PT Coag (PPP) [Time] 32.9 s 11.7-14.9 [facility] Work Phone: Laboratory - Hematology and Cell countson 12-06-2021 Erythrocyte distribution width (RBC) [Entitic vol] 42.4 fL 35.1-43.9 [facility] Work Phone: Erythrocyte distribution width (RBC) [Ratio] 14.0 % 11.6-14.6 [facility] Work Phone: Immature granulocytes/100 WBC (Bld) 3.000 % 0.0-0.9 [facility] Work Phone: Comment on above: IG% - Immature Granu locytes (promyelocytes, myelocytes and metamyelocytes) > 1% indicates that a LEFT SHIFT is Present. MCH (RBC) [Entitic mass] 27.2 pg 27.0-32.0 [facility] Work Phone: Nucleated RBC/100 WBC (Bld) [Ratio] 0 % 0-5 [facility] Work Phone: MCHC Auto (RBC) [Mass/Vol]on 12-06-2021 MCHC (RBC) [Mass/Vol] 32.8 g/dL 32-36 [facility] Work Phone: Mucus LM Ql (Urine sed)on Mucus Ql (Urine sed) 0 SEEN /hpf [facility] Work Phone: Nitrite Test strip Ql (U)on 12-06-2021 Nitrite Ql (U) Negative Negative [facility] Work Phone: No Panel Informationon 12-06 Estimated Creatinine Clearance Calc 61.03 ml/min [facility] Work Phone: Estimated GFR (MDRD) Amer 76 mL/min >60 [facility] Work Phone: Comment on above: GFR Calc Estimated GFR (MDRD) Non-Af Amer 63 mL/min >60 [facility] Work Phone: Comment on above: Non- GFR Calc Troponin I High Sensitivity 5 pg/mL 3.0-78.0 [facility] Work Phone: Comment on above: Please Note: New Thania t Units and Gender Specific Reference Ranges. For more information see Policy Stat Procedure [place] High Sensitivity Troponin (TNIH) and attachments. SARS-CoV-2 & FLU Antigen (Rapid) SARS-CoV-2 (COVID 19) [facility] Work Phone: Platelets bldon 12-06-2021 Platelets (Bld) [#/Vol] 229 10*3/uL 150-450 [facility] Work Phone: Protein Test strip Ql (U)on 12-06-2021 Protein Ql (U) 30 mg/dl Negative [facility] Work Phone: Serum or plasma calcium antoine urement (mass/volume)on 12-06-2021 Calcium [Mass/Vol] 8.9 mg/dL 8.5-10.1 [facility] Work Phone: Serum or plasma creatinine m easurement (mass/volume)on 12-06-2021 Creatinine [Mass/Vol] 1.20 mg/dL 0.70-1.30 [facility] Work Phone: Comment on above: The validity of the calculated GFR & GFRAA in patients over 70 years has not been determined. Clinical correlation is essential. Serum or plasma urea nitroge n measurement (mass/volume)on 12-06-2021 Urea nitrogen [Mass/Vol] 17 mg/dL 7-18 [facility] Work Phone: Squamous epithelial cells de tection in urine sediment by light microscopyon 12-06-2021 Epithelial cells.squamous LM Ql (Urine sed) 0-5 SEEN /hpf 0-5 [facility] Work Phone: Thin prep Papanicolaou smear with manual screeningon 12-06-2021 Thin prep Papanicolaou smear with manual screening 9 5-15 [facility] Work Phone: Urine blood detectionon 11-13 RBC Ql (U) 10 /ul Negative [facility] Work Phone: RBC Ql (U) 0 SEEN /hpf 0-5 [facility] Work Phone: Urine clarityon 12-06-2021 Clarity (U) Clear Clear [facility] Work Phone: Urine color determinationon 12-06-2021 Color (U) Yellow Yellow [facility] Work Phone: Urine glucose detectionon Glucose Ql (U) 100 mg/dl Normal [facility] Work Phone: Urine leukocyte esterase det ection by dipstickon 12-06-2021 Leukocyte esterase Test strip Ql (U) 25 /ul Negative [facility] Work Phone: Urine pHon 12-06-2021 pH (U) 5.0 [pH] 5.0 - 8.0 [facility] Work Phone: Urine sediment bacteria coun t by microscopy (number/high power field)on 12-06-2021 Bacteria LM.HPF (Urine sed) [#/Area] 1 /[HPF] None Seen [facility] Work Phone: Urine specific gravity measu rementon 12-06-2021 Specific gravity (U) [Rel density] 1.025 1.002-1.03 0 [facility] Work Phone: Urobilinogen Auto test strip Ql (U)on 12-06-2021 Urobilinogen Ql (U) 1 mg/dl Normal [facility] Work Phone: GLUCOSE, BLOOD (POC)on 10-10 Glucose [Mass/Vol] 121 mg/dL Abnormal 74 - 99 mg/dL [facility] Glucose [Mass/Vol] 144 mg/dL Abnormal 74 - 99 mg/dL [facility] No Panel Informationon 10-10 [facility] CTA CHEST (GATED) W IVCONon 07-27-2021 CTA CHEST (GATED) W IVCON * * *Final Rep ort* * * DATE OF EXAM: Jul 27 2021 11:00AM [facility] 0125 - CTA CHEST (GATED) W IVCON [...] The arch vessel branching pattern is normal. 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 Cholelithiasis without findings of acute cholecystitis. Dieing Out Machine Operator: BLAKE Transcribe Date/Time: Jul 27 2021 11:21A Dictated by : BALBIR RAYGOZA MD This examination was interpreted and the report reviewed and electronically signed by: SADE (more content not included)... Normal [facility] - Microbiology an d Antimicrobial susceptibility Bacteria identified Cx Nom (Bld) No growth in 5 days. [facility] Work Phone: No Panel Information SARS-CoV-2 & FLU Antigen (Rapid) SARS-CoV-2 (COVID 19) [facility] Work Phone: Vital Signs Date Time Vital Sign Value Performing Clinician Scott quinn 02-28-2025 00:00-0400 Heart rate 83 /min Dr. Luis Caldera MD Work Phone: [facility] 02-28-2025 00:00-0400 Respiratory rate 14 /min Dr. Luis Caldera MD Work Phone: 8(519)089-153775 [place] [address] 02-28-2025 00:00-0400 SaO2% (BldA) [Mass fraction] 96 % Dr. Luis Caldera MD Work Phone: 9(284)700-335475 [place] [address] 02-27-2025 22:00-0400 Diastolic blood pressure 76 mm[Hg] Dr. Luis Caldera MD Work Phone: 3(588)871-347275 [place] [address] 02-27-2025 22:00-0400 Systolic blood pressure 144 mm[Hg] Dr. Luis Caldera MD Work Phone: 6(569)014-241475 [place] [address] 02-27-2025 21:35-0400 Body temperature 98.2 [degF] Dr. Luis Caldera MD Work Phone: 0(148)078-309075 [place] [address] 02-27-2025 18:27-0400 Body height 182.[address] Luis Caldera MD Work Phone: 5(024)909-349475 [place] [address] 02-27-2025 18:27-0400 Body mass index (BMI) [Ratio] 34.1 kg/m2 Dr. Luis Caldera MD Work Phone: 0(759)929-473375 [place] [address] 02-27-2025 18:27-0400 Body weight 114.[address] Luis Caldera MD Work Phone: 3(776)741-085275 [place] [address] 02-11-2025 15:20-0400 Body temperature 98.4 [degF] Dr. Luis Caldera MD Work Phone: 8(517)791-495375 [place] [address] 02-11-2025 15:20-0400 Diastolic blood pressure 64 mm[Hg] Dr. Luis Caldera MD Work Phone: 4(567)385-175475 [place] [address] 02-11-2025 15:20-0400 Heart rate 61 /min Dr. Luis Caldera MD Work Phone: 1(194)559-195275 [place] [address] 02-11-2025 15:20-0400 Inhaled oxygen flow rate 2 L/min Dr. Luis Caldera MD Work Phone: 3(264)472-027875 [place] [address] 02-11-2025 15:20-0400 Respiratory rate 18 /min Dr. Luis Caldera MD Work Phone: 6(809)206-479275 [place] [address] 02-11-2025 15:20-0400 SaO2% (BldA) [Mass fraction] 96 % Dr. Luis Caldera MD Work Phone: 1(358)399-223675 [place] [address] 02-11-2025 15:20-0400 Systolic blood pressure 132 mm[Hg] Dr. Luis Caldera MD Work Phone: 4(629)332-698075 [place] [address] 02-11-2025 05:55-0400 Body mass index (BMI) [Ratio] 34.8 kg/m2 Dr. Luis Caldera MD Work Phone: 8(118)788-942875 [place] [address] 02-11-2025 05:55-0400 Body weight 116.[address] Luis Caldera MD Work Phone: 8(148)892-452775 [place] [address] 02-08-2025 12:01-0400 Body height 182.[address] Luis Caldera MD Work Phone: 6(478)522-054075 [place] [address] 02-03-2025 00:00-0400 Body temperature 99 [degF] Dr. Luis Caldera MD Work Phone: 3(246)299-784775 [place] [address] 02-03-2025 00:00-0400 Diastolic blood pressure 52 mm[Hg] Dr. Luis Caldera MD Work Phone: 3(832)943-053675 [place] [address] 02-03-2025 00:00-0400 Heart rate 68 /min Dr. Luis Caldera MD Work Phone: 3(560)646-710175 [place] [address] 02-03-2025 00:00-0400 Respiratory rate 20 /min Dr. Luis Caldera MD Work Phone: 9(595)246-835275 [place] [address] 02-03-2025 00:00-0400 SaO2% (BldA) [Mass fraction] 97 % Dr. Luis Caldera MD Work Phone: 3(789)383-598975 [place] [address] 02-03-2025 00:00-0400 Systolic blood pressure 127 mm[Hg] Dr. Luis Caldera MD Work Phone: 4(457)055-878075 [place] [address] 02-02-2025 19:42-0400 Body height 182.[address] Luis Caldera MD Work Phone: 6(092)809-101375 [place] [address] 02-02-2025 19:42-0400 Body mass index (BMI) [Ratio] 35.7 kg/m2 Dr. Luis Cadlera MD Work Phone: 0(246)578-438275 [place] [address] 02-02-2025 19:42-0400 Body weight 119.[address] Luis Caldera MD Work Phone: 6(467)811-190275 [place] [address] 02-02-2025 19:42-0400 Inhaled oxygen flow rate 15 L/min Dr. Luis Caldera MD Work Phone: 4(035)437-676275 [place] [address] 10-12-2024 13:12-0400 Body height 182.[address] Luis Caldera MD Work Phone: 5(107)139-371575 [place] [address] 10-12-2024 13:12-0400 Body mass index (BMI) [Ratio] 32.3 kg/m2 Dr. Luis Caldera MD Work Phone: 7(661)405-342975 [place] [address] 10-12-2024 13:12-0400 Body weight 107.[address] Luis Caldera MD Work Phone: 6(044)974-296875 [place] [address] 10-12-2024 13:12-0400 Diastolic blood pressure 57 mm[Hg] Dr. Luis Caldera MD Work Phone: 6(304)583-944375 [place] [address] 10-12-2024 13:12-0400 Heart rate 65 /min Dr. Luis Caldera MD Work Phone: 5(360)126-159975 [place] [address] 10-12-2024 13:12-0400 Respiratory rate 18 /min Dr. Luis Caldera MD Work Phone: 2(982)447-408575 [place] [address] 10-12-2024 13:12-0400 SaO2% (BldA) [Mass fraction] 99 % Dr. Luis Caldera MD Work Phone: 8(814)799-083675 [place] [address] 10-12-2024 13:12-0400 Systolic blood pressure 117 mm[Hg] Dr. Luis Caldera MD Work Phone: 5(083)879-837275 [place] [address] 10-07-2023 14:18-0400 Body height 182.[address] Luis Caldera Work Phone: 1(420)159-488475 [place] [address] 10-07-2023 14:18-0400 Body mass index (BMI) [Ratio] 29.8 kg/m2 Dr. Luis Caldera Work Phone: 2(647)624-361775 [place] [address] 10-07-2023 14:18-0400 Body weight 99.[address] Luis Caldera Work Phone: 5(834)752-707475 [place] [address] 10-07-2023 14:18-0400 Diastolic blood pressure 66 mm[Hg] Dr. Luis Caldera Work Phone: 4(229)709-405875 [place] [address] 10-07-2023 14:18-0400 Heart rate 67 /min Dr. Luis Caldera Work Phone: 0(566)074-954075 [place] [address] 10-07-2023 14:18-0400 Respiratory rate 16 /min Dr. Luis Caldera Work Phone: 8(574)344-219675 [place] [address] 10-07-2023 14:18-0400 Systolic blood pressure 112 mm[Hg] Dr. Luis Caldera Work Phone: 2(146)606-665775 [place] [address] 06-03-2023 12:50-0500 Body temperature 97.2 [degF] Dr. Luis Caldera Work Phone: 7(500)340-378275 [place] [address] 06-03-2023 12:50-0500 Diastolic blood pressure 90 mm[Hg] Dr. Luis Caldera Work Phone: 7(414)288-737275 [place] [address] 06-03-2023 12:50-0500 Heart rate 85 /min Dr. Luis Caldera Work Phone: 9(848)751-712175 [place] [address] 06-03-2023 12:50-0500 Respiratory rate 16 /min Dr. Luis Caldera Work Phone: 3(256)765-898275 [place] [address] 06-03-2023 12:50-0500 SaO2% (BldA) [Mass fraction] 97 % Dr. Luis Caldera Work Phone: [facility] 06-03-2023 12:50-0500 Systolic blood pressure 134 mm[Hg] Dr. Luis Caldera Work Phone: [facility] 06-03-2023 11:45-0500 Body height 182.[address] Luis Caldera Work Phone: [facility] 06-03-2023 11:45-0500 Body mass index (BMI) [Ratio] 30.5 kg/m2 Dr. Luis Cladera Work Phone: [facility] 06-03-2023 11:45-0500 Body weight 102.[address] Luis Caldera Work Phone: [facility] 03-27-2023 13:51-0400 Body height 185.[address] Maggy Roberts Work Phone: [facility] 03-27-2023 13:51-0400 Body mass index (BMI) [Ratio] 34.7 kg/m2 Dr. Maggy Roberts Work Phone: [facility] 03-27-2023 13:51-0400 Body weight 119.[address] Maggy Roberts Work Phone: [facility] 03-27-2023 13:51-0400 Diastolic blood pressure 78 mm[Hg] Dr. Maggy Roberts Work Phone: [facility] 03-27-2023 13:51-0400 Heart rate 97 /min Dr. Maggy Roberts Work Phone: [facility] 03-27-2023 13:51-0400 Respiratory rate 18 /min Dr. Maggy Roberts Work Phone: [facility] 03-27-2023 13:51-0400 SaO2% (BldA) [Mass fraction] 98 % Dr. Maggy Roberts Work Phone: [facility] 03-27-2023 13:51-0400 Systolic blood pressure 118 mm[Hg] Dr. Maggy Roberts Work Phone: 1(234)502-876270 [place] [address] 02-13-2023 15:02-0400 Body temperature 97 [degF] Dr. Maggy Roberts Work Phone: 7(923)084-524570 [place] [address] 02-13-2023 15:02-0400 Diastolic blood pressure 70 mm[Hg] Dr. Maggy Roberts Work Phone: 4(023)178-788991 [address] 02-13-2023 15:02-0400 Heart rate 82 /min Dr. Maggy Roberts Work Phone: 1(863)552-199991 [address] 02-13-2023 15:02-0400 Respiratory rate 16 /min Dr. Maggy Roberts Work Phone: 9(573)606-903498 [place] [address] 02-13-2023 15:02-0400 SaO2% (BldA) [Mass fraction] 100 % Dr. Maggy Roberts Work Phone: 5(285)409-044370 [place] [address] 02-13-2023 15:02-0400 Systolic blood pressure 134 mm[Hg] Dr. Maggy Roberts Work Phone: 9(315)181-003498 [place] [address] 02-12-2023 13:33-0400 Body height 185.[address] Maggy Roberts Work Phone: 6(704)912-027598 [place] [address] 02-12-2023 13:33-0400 Body weight 102.[address] Maggy Roberts Work Phone: 2(880)694-735398 [place] [address] 02-11-2023 20:45-0400 Body mass index (BMI) [Ratio] 30 kg/m2 Dr. Maggy Roberts Work Phone: 1(459)744-338870 [place] [address] 02-11-2023 18:53-0400 Body temperature 99.1 [degF] Dr. Maggy Roberts Work Phone: 4(490)716-583170 [place] [address] 02-11-2023 18:53-0400 Diastolic blood pressure 71 mm[Hg] Dr. Maggy Roberts Work Phone: 0(908)288-017191 [address] 02-11-2023 18:53-0400 Heart rate 88 /min Dr. Maggy Roberts Work Phone: 6(048)290-411598 [place] [address] 02-11-2023 18:53-0400 Respiratory rate 18 /min Dr. Maggy Roberts Work Phone: 7(370)679-936398 [place] [address] 02-11-2023 18:53-0400 SaO2% (BldA) [Mass fraction] 93 % Dr. Maggy Roberts Work Phone: 7(420)710-782498 [place] [address] 02-11-2023 18:53-0400 Systolic blood pressure 129 mm[Hg] Dr. Maggy Roberts Work Phone: 8(317)382-462998 [place] [address] 02-11-2023 16:21-0400 Body height 185.[address] Maggy Roberts Work Phone: 1(865)050-958498 [place] [address] 02-11-2023 00:58-0400 Body temperature 98.4 [degF] Dr. Maggy Roberts Work Phone: 1(974)373-572598 [place] [address] 02-11-2023 00:58-0400 Diastolic blood pressure 62 mm[Hg] Dr. Maggy Roberts Work Phone: 4(116)519-798598 [place] [address] 02-11-2023 00:58-0400 Heart rate 74 /min Dr. Maggy Roberts Work Phone: 9(747)174-040298 [place] [address] 02-11-2023 00:58-0400 Respiratory rate 26 /min Dr. Maggy Roberts Work Phone: 0(319)201-644198 [place] [address] 02-11-2023 00:58-0400 SaO2% (BldA) [Mass fraction] 95 % Dr. Maggy Roberts Work Phone: 5(511)750-882198 [place] [address] 02-11-2023 00:58-0400 Systolic blood pressure 124 mm[Hg] Dr. Maggy Roberts Work Phone: 7(843)346-673798 [place] [address] 02-10-2023 21:23-0400 Body height 185.[address] Maggy Roberts Work Phone: 8(822)357-769198 [place] [address] 02-10-2023 21:23-0400 Body mass index (BMI) [Ratio] 30.9 kg/m2 Dr. Maggy Roberts Work Phone: 3(454)261-539670 [place] [address] 02-10-2023 21:23-0400 Body weight 106.[address] Maggy Roberts Work Phone: 3(334)827-102398 [place] [address] 02-05-2023 15:10-0400 Body temperature 97.4 [degF] Dr. Maggy Roberts Work Phone: 6(307)774-291098 [place] [address] 02-05-2023 15:10-0400 Diastolic blood pressure 77 mm[Hg] Dr. Maggy Roberts Work Phone: 5(947)066-856998 [place] [address] 02-05-2023 15:10-0400 Heart rate 85 /min Dr. Maggy Roberts Work Phone: 0(269)872-720698 [place] [address] 02-05-2023 15:10-0400 Respiratory rate 18 /min Dr. Maggy Roberts Work Phone: 1(847)991-060598 [place] [address] 02-05-2023 15:10-0400 SaO2% (BldA) [Mass fraction] 94 % Dr. Maggy Roberts Work Phone: 9(917)372-760798 [place] [address] 02-05-2023 15:10-0400 Systolic blood pressure 131 mm[Hg] Dr. Maggy Roberts Work Phone: 0(108)859-283370 [place] [address] 02-05-2023 05:36-0400 Body mass index (BMI) [Ratio] 30.6 kg/m2 Dr. Maggy Roberts Work Phone: 4(045)978-131770 [place] [address] 02-05-2023 05:36-0400 Body weight 105.[address] Maggy Roberts Work Phone: 5(604)441-767491 [address] 02-01-2023 00:17-0400 Inhaled oxygen flow rate 2 L/min Dr. Maggy Roberts Work Phone: [facility] 01-27-2023 21:04-0400 Body temperature 98.1 [degF] Dr. Maggy Roberts Work Phone: [facility] 01-27-2023 21:04-0400 Diastolic blood pressure 48 mm[Hg] Dr. Maggy Roberts Work Phone: 1(737)705-758570 [place] [address] 01-27-2023 21:04-0400 Heart rate 79 /min Dr. Maggy Roberts Work Phone: 7(354)319-030491 [address] 01-27-2023 21:04-0400 Respiratory rate 16 /min Dr. Maggy Roberts Work Phone: 6(368)145-092270 [place] [address] 01-27-2023 21:04-0400 SaO2% (BldA) [Mass fraction] 94 % Dr. Maggy Roberts Work Phone: 2(265)653-025891 [address] 01-27-2023 21:04-0400 Systolic blood pressure 111 mm[Hg] Dr. Maggy Roberts Work Phone: 7(431)143-125891 [address] 01-27-2023 17:58-0400 Body height 185.[address] Maggy Roberts Work Phone: 2(517)986-486198 [place] [address] 01-27-2023 17:58-0400 Body mass index (BMI) [Ratio] 30.5 kg/m2 Dr. Maggy Roberts Work Phone: 9(671)483-197670 [place] [address] 01-27-2023 17:58-0400 Body weight [address] Maggy Roberts Work Phone: 6(283)500-465491 [address] 01-26-2023 14:13-0400 Body temperature 98.6 [degF] Dr. Maggy Roberts Work Phone: 2(102)043-248091 [address] 01-26-2023 14:13-0400 Diastolic blood pressure 46 mm[Hg] Dr. Maggy Roberts Work Phone: 9(669)943-336291 [address] 01-26-2023 14:13-0400 Heart rate 60 /min Dr. Maggy Roberts Work Phone: [facility] 01-26-2023 14:13-0400 Respiratory rate 18 /min Dr. Maggy Roberts Work Phone: 8(796)275-485870 [place] [address] 01-26-2023 14:13-0400 SaO2% (BldA) [Mass fraction] 97 % Dr. Maggy Roberts Work Phone: 9(942)200-214670 [place] [address] 01-26-2023 14:13-0400 Systolic blood pressure 134 mm[Hg] Dr. Maggy Roberts Work Phone: 9(381)018-021298 [place] [address] 01-25-2023 05:27-0400 Body mass index (BMI) [Ratio] 28.2 kg/m2 Dr. Maggy Roberts Work Phone: 5(443)536-935998 [place] [address] 01-25-2023 05:27-0400 Body weight 96.[address] Maggy Roberts Work Phone: 4(550)773-645898 [place] [address] 01-24-2023 16:00-0400 Inhaled oxygen flow rate 93 L/min Dr. Maggy Roberts Work Phone: 6(844)252-058998 [place] [address] 01-23-2023 14:42-0400 Body height 185.[address] Maggy Roberts Work Phone: 5(215)870-278998 [place] [address] 01-21-2023 11:32-0400 Body temperature 97.8 [degF] Dr. Maggy Roberts Work Phone: 4(055)289-921498 [place] [address] 01-21-2023 11:32-0400 Diastolic blood pressure 55 mm[Hg] Dr. Maggy Roberts Work Phone: 3(270)182-531698 [place] [address] 01-21-2023 11:32-0400 Heart rate 83 /min Dr. Maggy Roberts Work Phone: 8(919)400-456470 [place] [address] 01-21-2023 11:32-0400 Respiratory rate 23 /min Dr. Maggy Roberts Work Phone: 2(758)754-373498 [place] [address] 01-21-2023 11:32-0400 SaO2% (BldA) [Mass fraction] 93 % Dr. Maggy Roberts Work Phone: 5(179)174-766498 [place] [address] 01-21-2023 11:32-0400 Systolic blood pressure 133 mm[Hg] Dr. Maggy Roberts Work Phone: 1(246)904-615170 [place] [address] 01-21-2023 08:21-0400 Body height 185.[address] Maggy Roberts Work Phone: 7(479)827-221198 [place] [address] 01-21-2023 08:21-0400 Body mass index (BMI) [Ratio] 28.9 kg/m2 Dr. Maggy Roberts Work Phone: 3(331)156-774291 [address] 01-21-2023 08:21-0400 Body weight 99.[address] Maggy Roberts Work Phone: 4(268)842-125598 [place] [address] 01-08-2023 11:58-0400 Body temperature 98.3 [degF] Dr. Mgagy Roberts Work Phone: 4(608)217-189098 [place] [address] 01-08-2023 11:58-0400 Diastolic blood pressure 70 mm[Hg] Dr. Maggy Roberts Work Phone: 1(005)085-163198 [place] [address] 01-08-2023 11:58-0400 Heart rate 60 /min Dr. Maggy Roberts Work Phone: 7(292)435-226598 [place] [address] 01-08-2023 11:58-0400 Respiratory rate 14 /min Dr. Maggy Roberts Work Phone: 2(189)319-086398 [place] [address] 01-08-2023 11:58-0400 SaO2% (BldA) [Mass fraction] 96 % Dr. Maggy Roberts Work Phone: 1(163)745-920870 [place] [address] 01-08-2023 11:58-0400 Systolic blood pressure 108 mm[Hg] Dr. Maggy Roberts Work Phone: 4(119)[phone] [place] [address] 01-08-2023 06:00-0400 Body mass index (BMI) [Ratio] 38.4 kg/m2 Dr. Maggy Roberts Work Phone: 5(075)[phone] [place] [address] 01-08-2023 06:00-0400 Body weight [address] Maggy Roberts Work Phone: 1(221)[phone] [address] 01-04-2023 17:25-0400 Diastolic blood pressure 63 mm[Hg] [facility] 01-04-2023 17:25-0400 Heart rate 63 /min [facility] 01-04-2023 17:25-0400 Respiratory rate 12 /min [facility] 01-04-2023 17:25-0400 SaO2% (BldA) [Mass fraction] 98 % [facility] 01-04-2023 17:25-0400 Systolic blood pressure 138 mm[Hg] [facility] 01-04-2023 16:19-0400 Body temperature 96.9 [degF] [facility] 01-04-2023 11:15-0400 Body mass index (BMI) [Ratio] 30.4 kg/m2 [facility] 01-04-2023 11:15-0400 Body weight 104.7 kg [facility] 01-04-2023 10:59-0400 Body height 185.42 cm [facility] 09-07-2022 11:01-0500 Body height 185.4 cm Jojo Kaur MD Work Phone: [facility] 09-07-2022 11:01-0500 Body weight 113.4 kg Jojo Kaur MD Work Phone: [facility] 09-07-2022 11:01-0500 Diastolic blood pressure 57 mm[Hg] Jojo Kaur MD Work Phone: [facility] 09-07-2022 11:01-0500 Heart rate 64 /min Jojo Kaur MD Work Phone: [facility] 09-07-2022 11:01-0500 Respiratory rate 16 /min Jojo Kaur MD Work Phone: [facility] 09-07-2022 11:01-0500 SaO2% (BldA) [Mass fraction] 99 % Jojo Kaur MD Work Phone: [facility] 09-07-2022 11:01-0500 Systolic blood pressure 124 mm[Hg] Jojo Kaur MD Work Phone: [facility] 08-09-2022 16:35-0500 Body weight 113.4 kg Abdulaziz Caldera MD Work Phone: [facility] 08-09-2022 16:35-0500 Diastolic blood pressure 62 mm[Hg] Abdulaziz Caldera MD Work Phone: [facility] 08-09-2022 16:35-0500 Heart rate 64 /min Abdulaziz Caldera MD Work Phone: [facility] 08-09-2022 16:35-0500 Respiratory rate 16 /min Abdulaziz Caldera MD Work Phone: [facility] 08-09-2022 16:35-0500 SaO2% (BldA) [Mass fraction] 96 % Abdulaziz Caldera MD Work Phone: [facility] 08-09-2022 16:35-0500 Systolic blood pressure 112 mm[Hg] Abdulaziz Caldera MD Work Phone: [facility] 07-11-2022 16:22-0500 Body temperature 97.9 [degF] Dr. Luis Caldera Work Phone: [facility] Work Phone: 07-11-2022 16:22-0500 Diastolic blood pressure 65 mm[Hg] Dr. Luis Caldera Work Phone: [facility] Work Phone: 07-11-2022 16:22-0500 Heart rate 75 /min Dr. Luis Caldera Work Phone: [facility] Work Phone: 07-11-2022 16:22-0500 Respiratory rate 17 /min Dr. Luis Caldera Work Phone: [facility] Work Phone: 07-11-2022 16:22-0500 SaO2% (BldA) [Mass fraction] 96 % Dr. Luis Caldera Work Phone: [facility] Work Phone: 07-11-2022 16:22-0500 Systolic blood pressure 114 mm[Hg] Dr. Luis Caldera Work Phone: [facility] Work Phone: 07-11-2022 03:04-0500 Body weight 114.[address] Luis Caldera Work Phone: [facility] Work Phone: 07-10-2022 14:29-0500 Body height 185.[address] Luis Caldera Work Phone: [facility] Work Phone: 07-10-2022 03:04-0500 Body mass index (BMI) [Ratio] 33.6 kg/m2 Dr. Luis Caldear Work Phone: [facility] Work Phone: 07-09-2022 21:17-0500 Inhaled oxygen flow rate 97 L/min Dr. Luis Caldera Work Phone: [facility] Work Phone: 04-17-2022 11:23-0400 Body height 185.4 cm Jojo Kaur MD Work Phone: [facility] 04-17-2022 11:23-0400 Body weight 114.31 kg Jojo Kaur MD Work Phone: [facility] 04-17-2022 11:23-0400 Diastolic blood pressure 71 mm[Hg] Jojo Kaur MD Work Phone: [facility] 04-17-2022 11:23-0400 Heart rate 72 /min Jojo Kaur MD Work Phone: [facility] 04-17-2022 11:23-0400 Respiratory rate 18 /min Jojo Kaur MD Work Phone: [facility] 04-17-2022 11:23-0400 SaO2% (BldA) [Mass fraction] 98 % Jojo Kaur MD Work Phone: [facility] 04-17-2022 11:23-0400 Systolic blood pressure 116 mm[Hg] Jojo Kaur MD Work Phone: [facility] 04-16-2022 13:09-0400 Body height 185.4 cm Abdulaziz Caldera MD Work Phone: [facility] 04-16-2022 13:09-0400 Body weight 114.31 kg Abdulaziz Caldera MD Work Phone: [facility] 04-16-2022 13:09-0400 Diastolic blood pressure 72 mm[Hg] Abdulaziz Caldera MD Work Phone: [facility] 04-16-2022 13:09-0400 Heart rate 70 /min Abdulaziz Caldera MD Work Phone: [facility] 04-16-2022 13:09-0400 Respiratory rate 16 /min Abdulaziz Caldera MD Work Phone: [facility] 04-16-2022 13:09-0400 SaO2% (BldA) [Mass fraction] 98 % Abdulaziz Caldera MD Work Phone: [facility] 04-16-2022 13:09-0400 Systolic blood pressure 132 mm[Hg] Abdulaziz Caldera MD Work Phone: [facility] 04-06-2022 09:36-0400 Body weight 114.31 kg Roseliaderek Raglandlogdavid TIMEKEEPING SUPERVISOR.FRONT DESK SUPERVISOR Work Phone: [facility] 04-06-2022 09:36-0400 Diastolic blood pressure 62 mm[Hg] Roselia Podlogar TIMEKEEPING SUPERVISOR.FRONT DESK SUPERVISOR Work Phone: [facility] 04-06-2022 09:36-0400 Heart rate 62 /min Roselia Podlogar TIMEKEEPING SUPERVISOR.FRONT DESK SUPERVISOR Work Phone: [facility] 04-06-2022 09:36-0400 Respiratory rate 16 /min Roselia Podlogar TIMEKEEPING SUPERVISOR.FRONT DESK SUPERVISOR Work Phone: [facility] 04-06-2022 09:36-0400 SaO2% (BldA) [Mass fraction] 97 % Roselia Podlogar TIMEKEEPING SUPERVISOR.FRONT DESK SUPERVISOR Work Phone: [facility] 04-06-2022 09:36-0400 Systolic blood pressure 112 mm[Hg] Roselia Madrigal TIMEKEEPING SUPERVISOR.FRONT DESK SUPERVISOR Work Phone: [facility] 03-07-2022 11:12-0400 Body weight 114.76 kg Abdulaziz Caldera MD Work Phone: [facility] 03-07-2022 11:12-0400 Diastolic blood pressure 70 mm[Hg] Abdulaziz Caldera MD Work Phone: [facility] 03-07-2022 11:12-0400 Heart rate 64 /min Abdulaziz Caldera MD Work Phone: [facility] 03-07-2022 11:12-0400 Respiratory rate 16 /min Abdulaziz Caldera MD Work Phone: [facility] 03-07-2022 11:12-0400 Systolic blood pressure 118 mm[Hg] Abdulaziz Caldera MD Work Phone: [facility] 03-05-2022 12:00-0400 Diastolic blood pressure 60 mm[Hg] David Lemsameera PT [facility] 03-05-2022 12:00-0400 Systolic blood pressure 112 mm[Hg] David Lemon PT [facility] 03-02-2022 19:48-0400 Diastolic blood pressure 79 mm[Hg] Dr. Luis Caldera Work Phone: [facility] Work Phone: 03-02-2022 19:48-0400 Heart rate 77 /min Dr. Luis Caldera Work Phone: [facility] Work Phone: 03-02-2022 19:48-0400 SaO2% (BldA) [Mass fraction] 97 % Dr. Luis Caldera Work Phone: [facility] Work Phone: 03-02-2022 19:48-0400 Systolic blood pressure 131 mm[Hg] Dr. Luis Caldera Work Phone: [facility] Work Phone: 03-02-2022 18:12-0400 Respiratory rate 17 /min Dr. Luis Caldera Work Phone: [facility] Work Phone: 03-02-2022 14:22-0400 Body height 185.[address] Luis Caldera Work Phone: [facility] Work Phone: 03-02-2022 14:22-0400 Body mass index (BMI) [Ratio] 32.3 kg/m2 Dr. Luis Caldera Work Phone: [facility] Work Phone: 03-02-2022 14:22-0400 Body temperature 98.9 [degF] Dr. Luis Caldera Work Phone: [facility] Work Phone: 03-02-2022 14:22-0400 Body weight 111.[address] Luis Caldera Work Phone: [facility] Work Phone: 01-12-2022 08:00-0400 Diastolic blood pressure 78 mm[Hg] David Lemon PT [facility] 01-12-2022 08:00-0400 Systolic blood pressure 130 mm[Hg] David Lemon PT [facility] 01-05-2022 09:56-0400 Body height 185.4 cm Jojo Kaur MD Work Phone: [facility] 01-05-2022 09:56-0400 Body weight 111.58 kg Jojo Kaur MD Work Phone: [facility] 01-05-2022 09:56-0400 Diastolic blood pressure 62 mm[Hg] Jojo Kaur MD Work Phone: [facility] 01-05-2022 09:56-0400 Heart rate 58 /min Jojo Kaur MD Work Phone: [facility] 01-05-2022 09:56-0400 Respiratory rate 16 /min Jojo Kaur MD Work Phone: [facility] 01-05-2022 09:56-0400 SaO2% (BldA) [Mass fraction] 97 % Jojo Kaur MD Work Phone: [facility] 01-05-2022 09:56-0400 Systolic blood pressure 117 mm[Hg] Jojo Kaur MD Work Phone: [facility] 01-01-2022 10:12-0400 Body temperature 97.39 [degF] Abdulaziz Caldera MD Work Phone: [facility] 01-01-2022 10:12-0400 Body weight 111.77 kg Abdulaziz Caldera MD Work Phone: [facility] 01-01-2022 10:12-0400 Diastolic blood pressure 64 mm[Hg] Abdulaziz Caldera MD Work Phone: [facility] 01-01-2022 10:12-0400 Heart rate 47 /min Abdulaziz Caldera MD Work Phone: [facility] 01-01-2022 10:12-0400 Respiratory rate 18 /min Abdulaziz Caldera MD Work Phone: [facility] 01-01-2022 10:12-0400 SaO2% (BldA) [Mass fraction] 98 % Abdulaziz Caldera MD Work Phone: [facility] 01-01-2022 10:12-0400 Systolic blood pressure 112 mm[Hg] Abdulaziz Caldera MD Work Phone: [facility] 01-01-2022 08:55-0400 Body weight 112.49 kg Justina Monique APRN.FRONT DESK SUPERVISOR Work Phone: [facility] 01-01-2022 08:55-0400 Diastolic blood pressure 74 mm[Hg] Justina Monique APRN.FRONT DESK SUPERVISOR Work Phone: [facility] 01-01-2022 08:55-0400 Heart rate 60 /min Justinaeric Monique APRN.FRONT DESK SUPERVISOR Work Phone: [facility] 01-01-2022 08:55-0400 Respiratory rate 18 /min Justina Leonie VALERO.FRONT DESK SUPERVISOR Work Phone: [facility] 01-01-2022 08:55-0400 Systolic blood pressure 147 mm[Hg] Justinaeric Monique APRN.FRONT DESK SUPERVISOR Work Phone: [facility] 12-29-2021 08:54-0400 Heart rate 69 /min Dr. Luis Caldera Work Phone: [facility] Work Phone: 12-29-2021 08:50-0400 Body temperature 97.7 [degF] Dr. Luis Caldera Work Phone: [facility] Work Phone: 12-29-2021 08:50-0400 Diastolic blood pressure 68 mm[Hg] Dr. Luis Caldera Work Phone: [facility] Work Phone: 12-29-2021 08:50-0400 Respiratory rate 18 /min Dr. Luis Caldera Work Phone: [facility] Work Phone: 12-29-2021 08:50-0400 SaO2% (BldA) [Mass fraction] 96 % Dr. Luis Caldera Work Phone: [facility] Work Phone: 12-29-2021 08:50-0400 Systolic blood pressure 139 mm[Hg] Dr. Luis Caldera Work Phone: [facility] Work Phone: 12-27-2021 22:36-0400 Body height 185.[address] Luis Caldera Work Phone: [facility] Work Phone: 12-27-2021 22:36-0400 Body mass index (BMI) [Ratio] 32.8 kg/m2 Dr. Luis Caldera Work Phone: [facility] Work Phone: 12-27-2021 22:36-0400 Body weight 112.[address] Luis Caldera Work Phone: [facility] Work Phone: 12-27-2021 21:22-0400 Diastolic blood pressure 71 mm[Hg] DR MELANIA WORKMAN MD [facility] 12-27-2021 21:22-0400 Heart rate 73 /min DR MELANIA WORKMAN MD [facility] 12-27-2021 21:22-0400 Respiratory rate 24 /min DR MELANIA WORKMAN MD [facility] 12-27-2021 21:22-0400 Systolic blood pressure 121 mm[Hg] DR MELANIA WORKMAN MD [facility] 12-27-2021 20:06-0400 Diastolic blood pressure 59 mm[Hg] DR MELANIA WORKMAN MD [facility] 12-27-2021 20:06-0400 Heart rate 80 /min DR MELANIA WORKMAN MD [facility] 12-27-2021 20:06-0400 Respiratory rate 26 /min DR MELANIA WORKMAN MD [facility] 12-27-2021 20:06-0400 Systolic blood pressure 112 mm[Hg] DR MELANIA WORKMAN MD [facility] 12-27-2021 19:19-0400 Body temperature 98.6 [degF] DR MELANIA WORKMAN MD [facility] 12-27-2021 19:19-0400 Diastolic blood pressure 76 mm[Hg] DR MELANIA WORKMAN MD [facility] 12-27-2021 19:19-0400 Heart rate 82 /min DR MELANIA WORKMAN MD [facility] 12-27-2021 19:19-0400 Respiratory rate 26 /min DR MELANIA WORKMAN MD [facility] 12-27-2021 19:19-0400 Systolic blood pressure 138 mm[Hg] DR MELANIA WORKMAN MD [facility] 12-27-2021 17:36-0400 Body temperature 102.56 [degF] DR MELANIA WORKMAN MD [facility] 12-27-2021 17:36-0400 Body weight [address] MELANIA WORKMAN MD [facility] 12-27-2021 17:36-0400 Heart rate 104 /min DR MELANIA WORKMAN MD [facility] 12-14-2021 15:10-0400 Body temperature 98.2 [degF] Abdulaziz Caldera MD Work Phone: [facility] 12-14-2021 15:10-0400 Body weight 110.77 kg Abdulaziz Caldera MD Work Phone: [facility] 12-14-2021 15:10-0400 Diastolic blood pressure 70 mm[Hg] Abdulaziz Caldera MD Work Phone: [facility] 12-14-2021 15:10-0400 Heart rate 54 /min Abdulaziz Caldera MD Work Phone: [facility] 12-14-2021 15:10-0400 Respiratory rate 16 /min Abdulaziz Caldera MD Work Phone: [facility] 12-14-2021 15:10-0400 SaO2% (BldA) [Mass fraction] 96 % Abdulaziz Caldera MD Work Phone: [facility] 12-14-2021 15:10-0400 Systolic blood pressure 130 mm[Hg] Abdulaziz Caldera MD Work Phone: [facility] 12-08-2021 16:23-0400 Diastolic blood pressure 64 mm[Hg] Abdulaziz Caldera MD Work Phone: [facility] 12-08-2021 16:23-0400 Heart rate 85 /min Abdulaziz Caldera MD Work Phone: [facility] 12-08-2021 16:23-0400 Systolic blood pressure 110 mm[Hg] Abdulaziz Caldera MD Work Phone: [facility] 12-07-2021 00:58-0400 SaO2% (BldA) [Mass fraction] 97 % [facility] Work Phone: 12-06-2021 22:59-0400 Body height 185.42 cm [facility] Work Phone: 12-06-2021 22:59-0400 Body mass index (BMI) [Ratio] 33.6 kg/m2 [facility] Work Phone: 12-06-2021 22:59-0400 Body temperature 97.7 [degF] [facility] Work Phone: 12-06-2021 22:59-0400 Body weight 115.66 kg [facility] Work Phone: 12-06-2021 22:59-0400 Diastolic blood pressure 78 mm[Hg] [facility] Work Phone: 12-06-2021 22:59-0400 Heart rate 90 /min [facility] Work Phone: 12-06-2021 22:59-0400 Respiratory rate 16 /min [facility] Work Phone: 12-06-2021 22:59-0400 Systolic blood pressure 149 mm[Hg] [facility] Work Phone: 10-23-2021 13:05-0400 Body temperature 97.3 [degF] Marcella Xavier PA-C Work Phone: [facility] 10-23-2021 13:05-0400 Body weight 114.58 kg Marcella Xavier PA-C Work Phone: [facility] 10-23-2021 13:05-0400 Diastolic blood pressure 56 mm[Hg] Marcella Xavier PA-C Work Phone: [facility] 10-23-2021 13:05-0400 Heart rate 85 /min Marcella Rankin PA-C Work Phone: [facility] 10-23-2021 13:05-0400 SaO2% (BldA) [Mass fraction] 98 % Marcella Xavier PA-C Work Phone: [facility] 10-23-2021 13:05-0400 Systolic blood pressure 132 mm[Hg] Marcella Xavier PA-C Work Phone: [facility] 10-10-2021 10:07-0400 Diastolic blood pressure 68 mm[Hg] Richard Jones MD Work Phone: [facility] 10-10-2021 10:07-0400 Heart rate 69 /min Richard Jones MD Work Phone: [facility] 10-10-2021 10:07-0400 Respiratory rate 16 /min Richard Jones MD Work Phone: [facility] 10-10-2021 10:07-0400 SaO2% (BldA) [Mass fraction] 98 % Richard Jones MD Work Phone: [facility] 10-10-2021 10:07-0400 Systolic blood pressure 150 mm[Hg] Richard Jones MD Work Phone: [facility] 10-10-2021 08:01-0400 Body temperature 97 [degF] Richard Jones MD Work Phone: [facility] Encounters Encounter Date Encounter Type Care Provider Facility Start: 03-03-2025 ambulatory [facility] Facility:[facility] Start: 02-27-2025 End: 02-28-2025 Dr. Luis Caldera MD Work Phone: -Emergency Department Work Phone: Start: 02-27-2025 End: 02-28-2025 Emergency department patient visit Dr. Luis Caldera MD Work Phone: -Emergency Department Start: 02-26-2025 ambulatory Walter MAYORGA Facili ty:[facility] Start: 02-26-2025 Walter [facility] Start: 02-25-2025 ambulatory [facility] Facility:[facility] Start: 02-25-2025 Walter sneed [facility] Start: 02-22-2025 ambulatory [facility] Start: 02-22-2025 Walter sneed [facility] Start: 02-18-2025 ambulatory Walter MAYORGA Facili ty:[facility] Start: 02-18-2025 Walter sneed [facility] Start: 02-17-2025 ambulatory Walter Becker [facility] Facili ty:[facility] Start: 02-17-2025 Walter sneed [facility] Start: 02-16-2025 ambulatory Walter MAYORGA Facili ty:[facility] Start: 02-16-2025 Walter sneed [facility] Start: 02-15-2025 ambulatory Walterbreonna Stewart ty:[facility] Start: 02-15-2025 Walter sneed [facility] Start: 02-11-2025 [facility] Work [facility]: Start: 02-10-2025 [facility] Start: 02-10-2025 Dr. Hugo Cervantes MD [facility] Work Phone: Start: 02-10-2025 End: 02-10-2025 ambulatory [facility] Start: 02-10-2025 End: 02-10-2025 Dr. Júnior Chandra MD [facility] Work Phone: Start: 02-09-2025 Dr. [facility]ne[facility] Start: 02-09-2025 Dr. Hugo Cervantes MD [facility] Work Phone: Start: 02-08-2025 Dr. Hugo Cervantes MD [facility] Work Phone: Start: 02-07-2025 Dr. Hugo Cervantes MD [facility] Work Phone: Start: 02-06-2025 Dr. Hugo Cervantes MD [facility] Work Phone: Start: 02-05-2025 Dr. [facility] Work Phone: Start: 02-04-2025 Dr. Hugo Cervantes MD [facility] Work Phone: Start: 02-04-2025 Meghana LOZA -[facility] Start: 02-03-2025 ambulatory [facility] Start: 02-03-2025 Dr. Aneesh Ac MD -[facility] Start: 02-03-2025 Dr. Hugo Cervantes MD [facility] Work Phone: Start: 02-02-2025 ambulatory Kee Mejia Facilit y:[facility] Start: 02-02-2025 End: 02-11-2025 Evaluation and management of inpatient Dr. Karen Aly MD -Progressive Care Unit Work Phone: Start: 02-02-2025 End: 02-11-2025 Dr. Hugo Cervantes MD -Progressive Care Unit Work Phone: Start: 12-22-2024 ambulatory Luis Chavez lity:[facility] Start: 12-22-2024 Registered Referred Walter [facility] Start: 12-22-2024 Walter Becker [facility] Start: 12-16-2024 ambulatory Luis Fernandezi lity:[facility] Start: 12-16-2024 Registered Referred Walter Becker [facility] Start: 12-16-2024 Walter Becker MD [facility] Start: 11-24-2024 ambulatory Luis Caldera Faci lity:[facility] Start: 11-24-2024 Registered Referred Walter Becker [facility] Start: 11-24-2024 Walter Becker MD [facility] Start: 10-12-2024 End: 10-12-[address] Olga Lidia Rasheed MD [facility] Work Phone: Start: 10-12-2024 End: 10-12-2024 ambulatory Luis Caldera Facility:[facility] Start: 10-05-2024 End: 10-05-[address] Luis Caldera MD Work Phone: [facility] Work Phone: Start: 10-05-2024 End: 10-05-2024 Departed Referred Walter Becker MD [facility] Start: 10-05-2024 Registered Referred Walter Becker [facility] Start: 10-05-2024 End: 10-05-2024 ambulatory Luis Bursley Facility:[facility] Start: 09-29-2024 End: 09-29-[address] Luis Caldera MD Work Phone: [facility] Work Phone: Start: 09-29-2024 End: 09-29-2024 Departed Referred Walter Becker [facility] Start: 09-29-2024 End: 09-29-2024 ambulatory Luis Peaceley Facility:[facility] Start: 08-04-2024 End: 08-04-2024 Departed Referred Walter Becker MD [facility] Start: 08-04-2024 End: 08-04-2024 ambulatory Luis Peaceley Facility:[facility] Start: 07-27-2024 End: 07-27-2024 Departed Referred Walter Becker [facility] Start: 07-27-2024 End: 07-27-2024 ambulatory Luis Peaceley Facility:[facility] Start: 07-07-2024 End: 07-07-2024 Departed Referred Walter Becker MD [facility] Start: 07-07-2024 End: 07-07-2024 ambulatory Walter MAYORGA Facility:[facility] Start: 07-01-2024 ambulatory Luis Vereince Faci lity:[facility] Start: 07-01-2024 Registered Referred Walter Becker [facility] Start: 06-01-2024 End: 06-01-2024 ambulatory Luis Bursley Facility:[facility] Start: 04-14-2024 End: 04-14-2024 ambulatory Luis Bursley Facility:[facility] Start: 04-10-2024 End: 04-10-2024 ambulatory Luis Bursley Facility:[facility] Start: 04-09-2024 End: 04-09-2024 ambulatory Luis Bursley Facility:[facility] Start: 04-07-2024 End: 04-08-2024 ambulatory Luis Caldera Facility:[facility] Start: 03-02-2024 ambulatory Luis Caldera Facmalinda lity:[facility] Start: 10-25-[address] Adam Caldera Work Phone: [facility] Start: 10-16-2023 End: 10-16-[address] Luis Caldera Work Phone: [facility] Work Phone: Start: 10-16-2023 End: 10-16-[address] Luis Caldera Work Phone: [facility] Start: 10-16-[address] Adam Caldera Work Phone: [facility] Start: 10-08-2023 End: 10-08-[address] Luis Caldera Work Phone: [facility] Work Phone: Start: 10-08-2023 End: 10-08-[address] Luis Caldera Work Phone: [facility] Start: 10-08-[address] Adam Caldera Work Phone: [facility] Start: 10-07-2023 End: 10-07-[address] Luis Caldera Work Phone: [facility] Work Phone: Start: 10-04-2023 End: 10-04-[address] Luis Caldera Work Phone: [facility] Work Phone: Start: 10-04-2023 End: 10-04-[address] Luis Caldera Work Phone: [facility] Start: 10-01-2023 End: 10-01-[address] Luis Caldera Work Phone: [facility] Work Phone: Start: 10-01-2023 End: 10-01-[address] Luis Caldera Work Phone: [facility] Start: 10-01-2023 Registered Referred [facility] Start: 09-25-2023 End: 09-25-2023 ambulatory [facility] Work Phone: Start: 09-25-2023 End: 09-25-2023 [facility]ed Referred [facility] Start: 09-18-2023 End: 09-18-2023 ambulatory [facility] Work Phone: Start: 09-18-2023 End: 09-18-2023 Departed Referred [facility] Start: 09-18-2023 Registered Referred [facility] Start: 09-13-2023 End: 09-13-2023 ambulatory [facility] Work Phone: Start: 09-13-2023 End: 09-13-2023 Departed Referred [facility] Start: 09-13-2023 Registered Referred [facility] Start: 09-12-2023 End: 09-12-2023 ambulatory [facility] Work Phone: Start: 09-12-2023 End: 09-12-2023 Departed Referred [facility] Start: 09-12-2023 Registered Referred [facility] Start: 09-09-2023 End: 09-09-2023 ambulatory [facility] Work Phone: Start: 09-09-2023 End: 09-09-2023 Departed Referred [facility] Start: 09-09-2023 Registered Referred [facility] Start: 08-26-2023 End: 08-26-2023 ambulatory [facility] Work Phone: Start: 08-26-2023 End: 08-26-2023 Departed Referred [facility] Start: 08-26-2023 Registered Referred [facility] Start: 08-19-2023 End: 08-19-2023 ambulatory [facility] Work Phone: Start: 08-19-2023 End: 08-19-2023 Departed Referred [facility] Start: 08-19-2023 Registered Referred [facility] Start: 08-12-2023 End: 08-12-2023 ambulatory [facility] Work Phone: Start: 08-12-2023 End: 08-12-2023 Departed Referred [facility] Start: 08-12-2023 Registered Referred [facility] Start: 08-05-2023 End: 08-05-2023 ambulatory [facility] Work Phone: Start: 08-05-2023 End: 08-05-2023 Departed Referred [facility] Start: 08-05-2023 Registered Referred [facility] Start: 07-29-2023 End: 07-29-2023 ambulatory [facility] Work Phone: Start: 07-29-2023 End: 07-29-2023 Departed Referred [facility] Start: 07-22-2023 End: 07-22-2023 ambulatory [facility] Work Phone: Start: 07-22-2023 End: 07-22-2023 Departed Referred [facility] Start: 07-22-[address] Adam Caldera Work Phone: [facility] Start: 07-19-2023 End: 07-19-2023 ambulatory [facility] Work Phone: Start: 07-19-2023 End: 07-19-2023 Departed Referred [facility] Start: 07-19-[address] Adam Caldera Work Phone: [facility] Start: 07-17-2023 End: 07-17-2023 ambulatory [facility] Work Phone: Start: 07-17-2023 End: 07-17-2023 Departed Referred [facility] Start: 07-17-[address] Adam Caldera Work Phone: [facility] Start: 07-10-2023 End: 07-10-[address] Luis Caldera Work Phone: [facility] Work Phone: Start: 07-10-2023 End: 07-10-[address] Luis Caldera Work Phone: [facility] Start: 07-03-2023 End: 07-03-[address] Luis Caldera Work Phone: [facility] Work Phone: Start: 07-03-2023 End: 07-03-[address] Luis Caldera Work Phone: [facility] Start: 07-03-[address] Adam Caldera Work Phone: [facility] Start: 06-26-2023 End: 06-26-[address] Luis Caldera Work Phone: [facility] Work Phone: Start: 06-26-2023 End: 06-26-[address] Luis Caldera Work Phone: [facility] Start: 06-26-[address] Adam Caldera Work Phone: [facility] Start: 06-25-2023 End: 06-25-[address] Luis Caldera Work Phone: [facility] Work Phone: Start: 06-25-2023 End: 06-25-[address] Luis Caldera Work Phone: [facility] Start: 06-25-[address] Adam Caldera Work Phone: [facility] Start: 06-24-2023 End: 06-24-[address] Luis Caldera Work Phone: [facility] Work Phone: Start: 06-24-2023 End: 06-24-[address] Luis Caldera Work Phone: [facility] Start: 06-24-[address] Adam Caldera Work Phone: [facility] Start: 06-17-2023 End: 06-17-[address] Luis Caldera Work Phone: [facility] Work Phone: Start: 06-17-2023 End: 06-17-[address] Luis Caldera Work Phone: [facility] Start: 06-10-2023 End: 06-10-[address] Luis Caldera Work Phone: [facility] Work Phone: Start: 06-10-2023 End: 06-10-[address] Luis Caldera Work Phone: [facility] Start: 06-10-[address] Adam Caldera Work Phone: [facility] Start: 06-03-2023 End: 06-03-2023 Admission to same day surgery center Dr. Luis Caldera Work Phone: [facility] Start: 06-03-2023 End: 06-03-[address] Luis Caldera Work Phone: [facility] Work Phone: Start: 06-03-2023 End: 06-03-2023 Dr. Luis Caldera Work Phone: [facility] Start: 05-20-2023 End: 05-20-[address] Luis Caldera Work Phone: [facility] Work Phone: Start: 05-20-2023 End: 05-20-[address] Luis Caldera Work Phone: [facility] Start: 05-20-2023 End: 05-20-2023 Dr. Luis Caldera Work Phone: [facility] Start: 05-15-2023 End: 05-15-[address] Luis Caldera Work Phone: [facility] Work Phone: Start: 05-15-2023 End: 05-15-[address] Luis Caldera Work Phone: [facility] Start: 05-15-2023 End: 05-15-2023 Dr. Luis Caldera Work Phone: [facility] Start: 05-06-2023 End: 05-06-[address] Luis Caldera Work Phone: [facility] Work Phone: Start: 05-06-2023 End: 05-06-[address] Luis Caldera Work Phone: [facility] Start: 05-06-2023 End: 05-06-2023 Dr. Luis Caldera Work Phone: [facility] Start: 04-29-2023 End: 04-29-[address] Maggy Roberts Work Phone: [facility] Work Phone: Start: 04-29-2023 End: 04-29-[address] Luis Caldera Work Phone: [facility] Start: 04-29-2023 End: 04-29-2023 Dr. Maggy Roberts Work Phone: [facility] Start: 04-15-2023 End: 04-15-[address] Luis Caldera Work Phone: [facility] Start: 04-15-2023 End: 04-15-2023 Dr. Mag[facility] Start: 04-09-2023 End: 04-09-[address] Maggy Roberts Work Phone: [facility] Work Phone: Start: 04-09-2023 End: 04-09-[address] Luis Caldera Work Phone: [facility] Start: 04-09-2023 End: 04-09-2023 Dr. Maggy Roberts Work Phone: [facility] Start: 04-08-2023 End: 04-08-[address] Luis Caldera Work Phone: [facility] Start: 04-08-2023 End: 04-08-2023 Dr. Maggy Roberts Work Phone: [facility] Start: 04-01-2023 End: 04-01-[address] Maggy Roberts Work Phone: [facility] Work Phone: Start: 04-01-2023 End: 04-01-[address] Luis Caldera Work Phone: [facility] Start: 04-01-2023 End: 04-01-2023 Dr. Maggy Roberts Work Phone: [facility] Start: 03-27-2023 End: 03-27-[address] Luis Caldera Work Phone: [facility] Work Phone: Start: 03-27-2023 End: 03-27-2023 Dr. Maggy Roberts Work Phone: [facility] Work Phone: Start: 03-25-2023 End: 03-25-[address] Maggy Roberts Work Phone: [facility] Work Phone: Start: 03-25-2023 End: 03-25-[address] Luis Calder[facility] Start: 03-25-2023 End: 03-25-2023 Dr. Maggy Roberts Work Phone: [facility] Start: 03-11-2023 End: 03-11-[address] Maggy Roberts Work Phone: [facility] Work Phone: Start: 03-11-2023 End: 03-11-[address] Luis Caldera Work Phone: [facility] Start: 03-11-2023 End: 03-11-2023 Dr. Mag[facility] Start: 03-04-[address] Adam Calder[facility] Start: 03-04-2023 Dr. Maggy benavides Work Phone: [facility] Start: 03-01-[address] Adam Caldera Work Phone: [facility] Start: 03-01-2023 Dr. Maggy benavides Work Phone: [facility] Start: 02-25-[address] [facility] Calder[facility] Start: 02-25-2023 Dr. Maggy benavides Work Phone: [facility] Start: 02-22-[address] Adam Caldera Work Phone: [facility] Start: 02-22-2023 Dr. Maggy Bonilla line Work Phone: [facility] Start: 02-20-2023 Dr. Maggy benavides Work Phone: [facility] Start: 02-18-2023 End: 02-18-2023 Dr. Maggy Roberts Work Phone: [facility] Work Phone: Start: 02-14-2023 Dr. Maggy Bonilla line Work Phone: [facility] Start: 02-13-2023 Dr. Maggy Bonilla line Work Phone: [facility] Work Phone: Start: 02-12-2023 Dr. Maggy Bonilla line Work Phone: [facility] Work Phone: Start: 02-12-2023 Dr. Maggy Bonilla line Work Phone: [facility] Start: 02-11-2023 End: 02-13-2023 Evaluation and management of inpatient Dr. Maggy Roberts Work Phone: [facility] Work Phone: Start: 02-11-2023 End: 02-13-2023 Dr. Maggy Roberts Work Phone: [facility] Work Phone: Start: 02-10-2023 End: 02-11-2023 Emergency department patient visit Dr. Maggy Roberts Work Phone: [facility] Work Phone: Start: 02-10-2023 End: 02-11-2023 Dr. Maggy Roberts Work Phone: [facility] Work Phone: Start: 02-07-2023 Dr. Maggy Bonilla line Work Phone: [facility] Start: 02-05-2023 Dr. Maggy Bonilla line Work Phone: [facility] Work Phone: Start: 02-05-2023 End: 02-05-2023 Dr. Maggy Roberts Work Phone: [facility] Work Phone: Start: 02-04-2023 Dr. Maggy Bonilla line Work Phone: [facility] Work Phone: Start: 02-03-2023 End: 02-05-2023 Dr. Maggy Roberts Work Phone: [facility] Work Phone: Start: 02-02-2023 Dr. Maggy Bonilla line Work Phone: [facility] Work Phone: Start: 02-01-2023 Dr. Maggy Bonilla line Work Phone: [facility] Start: 02-01-2023 Dr. Maggy Bonilla line Work Phone: [facility] Work Phone: Start: 01-31-2023 Dr. Maggy Bonilla line Work Phone: [facility] Start: 01-31-2023 Dr. Maggy Bonilla line Work Phone: [facility] Work Phone: Start: 01-30-2023 Dr. Maggy Bonilla line Work Phone: [facility] Start: 01-30-2023 Dr. Maggy Bonilla line Work Phone: [facility] Start: 01-29-2023 Dr. Maggy Bonilla line Work Phone: [facility] Work Phone: Start: 01-29-2023 Dr. Maggy Bonilla line Work Phone: [facility] Start: 01-28-2023 Telephone encounter Luis Caldera MD Work Phone: [facility] Comment on above: Immunizations Start: 01-28-2023 Dr. Maggy Bonilla line Work Phone: [facility] Work Phone: Start: 01-28-2023 End: 01-28-2023 Dr. Maggy Roberts Work Phone: [facility] Work Phone: Start: 01-27-2023 Evaluation and management of inpatient Dr. Maggy Roberts Work Phone: [facility] Work Phone: Start: 01-27-2023 End: 02-05-2023 Dr. Maggy Roberts Work Phone: [facility] Work Phone: Start: 01-26-2023 Non-patient / Non-visit Dr. Eddie Roberts Work Phone: [facility] Start: 01-26-2023 Dr. Maggy Bonilla line Work Phone: [facility] Start: 01-26-2023 Non-patient / Non-visit Dr. Eddie Roberts Work Phone: [facility] Work Phone: Start: 01-26-2023 Dr. Maggy Bonilla line Work Phone: [facility] Work Phone: Start: 01-25-2023 Non-patient / Non-visit Dr. Eddie Roberts Work Phone: [facility] Start: 01-25-2023 Dr. Maggy Bonilla line Work Phone: [facility] Start: 01-25-2023 Non-patient / Non-visit Dr. Eddie Roberts Work Phone: [facility] Work Phone: Start: 01-25-2023 Dr. Maggy Bonilla line Work Phone: [facility] Work Phone: Start: 01-24-2023 Non-patient / Non-visit Dr. Eddie Roberts Work Phone: [facility] Start: 01-24-2023 Dr. Maggy Bonilla line Work Phone: [facility] Start: 01-24-2023 Telephone encounter Luis Caldera MD Work Phone: [facility] Comment on above: Patient Update Start: 01-24-2023 Non-patient / Non-visit Dr. Eddie Roberts Work Phone: [facility] Start: 01-24-2023 Dr. Maggy Bonilla line Work Phone: [facility] Start: 01-24-2023 Non-patient / Non-visit Dr. Eddie Robetrs Work Phone: [facility] Work Phone: Start: 01-24-2023 End: 01-24-2023 Dr. Maggy Roberts Work Phone: [facility] Work Phone: Start: 01-23-2023 Non-patient / Non-visit Dr. Eddei Roberts Work Phone: [facility] Start: 01-23-2023 Dr. Maggy Bonilla line Work Phone: [facility] Start: 01-23-2023 Non-patient / Non-visit Dr. Eddie Roberts Work Phone: [facility] Start: 01-23-2023 Dr. Maggy Bonilla line Work Phone: [facility] Start: 01-22-2023 Non-patient / Non-visit Dr. Eddie Roberts Work Phone: [facility] Start: 01-22-2023 Dr. Maggy Bonilla line Work Phone: [facility] Start: 01-22-2023 Non-patient / Non-visit Dr. Eddie Roberts Work Phone: [facility] Start: 01-22-2023 Dr. Maggy Bonilla line Work Phone: [facility] Start: 01-22-2023 Non-patient / Non-visit Dr. Eddie Roberts Work Phone: [facility] Work Phone: Start: 01-22-2023 Dr. Maggy Bonilla line Work Phone: [facility] Work Phone: Start: 01-21-2023 End: 01-21-2023 Dr. Maggy Roberts Work Phone: [facility] Work Phone: Start: 01-21-2023 Non-patient / Non-visit Dr. Eddie Roberts Work Phone: [facility] Start: 01-21-2023 Dr. Maggy benavides Work Phone: [facility] Start: 01-21-2023 Non-patient / Non-visit Dr. Eddie Roberts Work Phone: [facility] Work Phone: Start: 01-21-2023 Dr. Maggy Bonilla line Work Phone: [facility] Work Phone: Start: 01-21-2023 End: 01-26-2023 Evaluation and management of inpatient [facility] Maggy Roberts [facility]: Start: 01-21-2023 End: 01-26-2023 Dr. Maggy Roberts [facility] Work [facility]: Start: 01-08-2023 Non-patient / Non-visit Dr. Eddie Roberts Work Phone: [facility] Work Phone: Start: 01-08-2023 Dr. Maggy benavides Work Phone: [facility] Work Phone: Start: 01-07-2023 Non-patient / Non-visit Dr. Eddie Roberts Work Phone: [facility] Work Phone: Start: 01-07-2023 Dr. Maggy Bonilla line Work Phone: [facility] Work Phone: Start: 01-06-2023 Non-patient / Non-visit Dr. Eddie Roberts Work Phone: [facility] Work Phone: Start: 01-06-2023 Dr. Maggy benavides Work Phone: [facility] Work Phone: Start: 01-05-2023 End: 01-08-2023 Evaluation and management of inpatient Dr. Maggy Roberts Work Phone: [facility] Work Phone: Start: 01-05-2023 End: 01-08-2023 Dr. Maggy Roberts Work Phone: [facility] Work Phone: Start: 01-05-2023 Non-patient / Non-visit Dr. Eddie Roberts Work Phone: [facility] Work Phone: Start: 01-05-2023 Dr. Maggy Bonilla line Work Phone: [facility] Work Phone: Start: 01-04-2023 Evaluation and management of inpatient [facility] Start: 01-04-2023 Non-patient / Non-visit Dr. Eddie Roberts Work Phone: [facility] Work Phone: Start: 01-04-2023 observation encounter [facility] Work Phone: Start: 01-04-2023 Dr. Maggy Bonilla line Work Phone: [facility] Work Phone: Start: 01-04-2023 Telephone encounter Luis Caldera MD Work Phone: [facility] Comment on above: Appointment Start: 01-03-2023 Telephone encounter Luis Caldera MD Work Phone: [facility] Comment on above: Appointment; Patient Update Start: 01-03-2023 End: 01-03-2023 ambulatory Justina Escoto PT [facility] Comment on above: Spinal stenosis, lum bar region, without neurogenic claudication (Primary Dx); Primary osteoarthritis of both knees Start: 12-31-2022 End: 12-31-2022 ambulatory Ira Ramos MANAGER RESIDENTIAL Work Phone: [facility] Comment on above: Spinal stenosis, lum bar region, without neurogenic claudication (Primary Dx); Primary osteoarthritis of both knees Start: 12-27-2022 End: 12-27-2022 ambulatory Ira Ramos MANAGER RESIDENTIAL Work Phone: [facility] Comment on above: Spinal stenosis, lum bar region, without neurogenic claudication (Primary Dx); Primary osteoarthritis of both knees Start: 12-24-2022 End: 12-24-2022 ambulatory Justina O'Rafa PT [facility] Comment on above: Spinal stenosis, lum bar region, without neurogenic claudication (Primary Dx); Primary osteoarthritis of both knees Start: 12-17-2022 End: 12-17-2022 ambulatory Justina O'Rafa PT [facility] Comment on above: Spinal stenosis, lum bar region, without neurogenic claudication (Primary Dx); Primary osteoarthritis of both knees Start: 12-14-2022 End: 12-14-2022 ambulatory Justina O'Rafa PT [facility] Comment on above: Spinal stenosis, lum bar region, without neurogenic claudication (Primary Dx); Primary osteoarthritis of both knees Start: 12-12-2022 End: 12-12-2022 ambulatory Justina O'Rafa PT [facility] Comment on above: Spinal stenosis, lum bar region, without neurogenic claudication (Primary Dx); Primary osteoarthritis of both knees Start: 11-20-2022 Refill Abdulaziz Caldera MD Work Phone: [facility] Comment on above: Refill Request Start: 11-19-2022 Telephone encounter Valencia Pascual MA [facility] Comment on above: Anticoagulation Start: 10-22-2022 End: 10-22-2022 Patient encounter procedure Zachary Obregon Work Phone: Podiatry Comment on above: Onychomycosis (Prima ry Dx); Pain in toe of left foot; Amputated toe of right foot (HCC); Diabetic polyneuropathy associated with type 2 diabetes mellitus (HCC) Start: 09-25-2022 Telephone encounter Luis Caldera MD Work Phone: [facility] Comment on above: Anticoagulation Start: 09-07-2022 Telephone encounter Jojo galan MD Work Phone: Neurology Comment on above: Appointment Start: 09-07-2022 End: 09-07-2022 Office outpatient visit 25 minutes Jojo Kaur MD Work Phone: Neurology Comment on above: Driving safety issue (Primary Dx) Start: 08-28-2022 Telephone encounter Luis Caldera MD Work Phone: [facility] Comment on above: Anticoagulation Start: 08-16-2022 Refill Abdulaziz Caldera MD Work Phone: [facility] [place] Comment on above: Refill Request Start: 08-14-2022 Telephone encounter Luis Caldera MD Work Phone: [facility] Comment on above: Anticoagulation Start: 08-09-2022 End: 08-09-2022 Patient encounter procedure Abdulaziz Caldera MD Work Phone: [facility] [place] Comment on above: Type 2 diabetes almaz itus with diabetic neuropathy, with long- term current use of insulin (HCC) (Primary Dx); Diabetic polyneuropathy associated with type 2 diabetes mellitus (HCC); NSTEMI (non-ST elevated myocardial infarction) ([facility]); Essential hypertension, benign; Hyperlipidemia with target LDL [...] Telephone encounter Luis Caldera MD Work Phone: [facility] [place] Comment on above: checking on medicati on Start: 08-06-2022 End: 08-06-2022 Patient encounter procedure Zachary Jaimes MD Work Phone: Otolaryngology Comment on above: Dizziness (Primary D x); Chronic frontal sinusitis Start: 07-31-2022 Telephone encounter Luis Caldera MD Work Phone: [facility] Comment on above: Anticoagulation Start: 07-26-2022 Telephone encounter Luis Caldera MD Work Phone: [facility] Comment on above: Home Health-Nursing Update Start: 07-25-2022 Refill Abdulaziz Caldera MD Work Phone: [facility] Comment on above: Refill Request Start: 07-17-2022 Telephone encounter Luis Caldera MD Work Phone: [facility] Comment on above: [facility] PT POC OT plan of care Start: 07-13-2022 Telephone encounter Luis Caldera MD Work Phone: [facility] Comment on above: Nursing Plan of C are Update Start: 07-12-2022 Telephone encounter Luis Caldera MD Work Phone: [facility] Comment on above: Orders Start: 07-11-2022 Non-patient / Non-visit Dr. Praveen Caldera Work Phone: [facility] Start: 07-11-2022 Non-patient / Non-visit Dr. Praveen Caldera Work Phone: [facility] Start: 07-10-2022 Non-patient / Non-visit Dr. Praveen Caldera Work Phone: [facility] Start: 07-10-2022 Non-patient / Non-visit Dr. Praveen Caldera Work Phone: [facility] Start: 07-09-2022 End: 07-11-2022 Evaluation and management of inpatient Dr. Luis Caldera [facility] Start: 07-09-2022 Refill Amanda Marisa [facility] Comment on above: Opened In Error Refill Request Start: 07-05-2022 E-mail encounter génesis m caregiver Jojo Kaur MD Work Phone: [facility] Start: 07-05-2022 Patient encounter procedure Jojo Kaur MD Work Phone: Neurology Comment on above: Appointment Needs Re scheduled: 08/21/[address] Kaur Start: 06-25-2022 Refill Abdulaziz Caldera MD Work Phone: [facility] Comment on above: Refill Request Start: 05-16-2022 Refill Abdulaziz Caldera MD Work Phone: [facility] Comment on above: Refill Request Start: 04-17-2022 Telephone encounter Justina Underwood lisandra NURSERY HAND Work Phone: Adult Psychology Comment on above: behavioral health so cial work Start: 04-17-2022 End: 04-17-2022 Patient encounter procedure Jojo Kaur MD Work Phone: Neurology Comment on above: Generalized anxiety disorder (Primary Dx); Polyneuropathy Start: 04-16-2022 End: 04-16-2022 Patient encounter procedure Abdulaziz Caldera MD Work Phone: [facility] Comment on above: Type 2 [...] End: 04-06-2022 Patient encounter procedure Roselia Madrigal APRN.[employer]PER[employer]OR Work Phone: [facility] Comment on above: Generalized weakness (Primary Dx); Encounter for immunization; Mild depression Start: 04-04-2022 Telephone encounter Luis Caldera MD Work Phone: [facility] Comment on above: Anticoagulation Start: 03-30-2022 End: 03-30-2022 Patient encounter procedure Zachary Obregon Work Phone: Podiatry Comment on above: Onychomycosis (Prima ry Dx); Pain in toe of left foot; Amputated toe of right foot (HCC); Diabetic polyneuropathy associated with type 2 diabetes mellitus (HCC) Start: 03-23-2022 End: 03-23-2022 ambulatory David Lemsameera PT [facility] Comment on above: Abnormality of gait due to impairment of balance (Primary Dx) Start: 03-22-2022 Refill Abdulaziz Caldera MD Work Phone: [facility] Comment on above: Refill Request Start: 03-15-2022 End: 03-15-2022 ambulatory Karen Weber MANAGER RESIDENTIAL Work Phone: [facility] Comment on above: Abnormality of gait due to impairment of balance (Primary Dx) Start: 03-12-2022 End: 03-12-2022 ambulatory Karen Weber MANAGER RESIDENTIAL Work Phone: [facility] Comment on above: Abnormality of gait due to impairment of balance (Primary Dx) Start: 03-09-2022 End: 03-09-2022 ambulatory David Lemon PT [facility] Comment on above: Abnormality of gait due to impairment of balance (Primary Dx) Start: 03-07-2022 Telephone encounter Luis Caldera MD Work Phone: [facility] Comment on above: Anticoagulation Start: 03-07-2022 End: 03-07-[address] Luis Caldera Work Phone: [facility] Work Phone: Start: 03-07-2022 End: 03-07-[address] Luis Caldera Work Phone: [facility], Specimen Start: 03-07-2022 End: 03-07-2022 Patient encounter procedure Abdulaziz Caldera MD Work Phone: [facility] Comment on above: Generalized weakness (Primary Dx); Supratherapeutic INR; ANTHONY (acute kidney injury) (HCC) Start: 03-05-2022 End: 03-05-2022 ambulatory David Lemon PT [facility] Comment on above: Abnormality of gait due to impairment of balance (Primary Dx) Start: 03-02-2022 End: 03-02-2022 Emergency department patient visit Dr. Luis Caldera Work Phone: [facility] Start: 03-02-2022 End: 03-02-2022 ambulatory David Lemon PT [facility] Comment on above: Abnormality of gait due to impairment of balance (Primary Dx) Start: 02-26-2022 End: 02-26-2022 ambulatory David Lemon PT [facility] Comment on above: Abnormality of gait due to impairment of balance (Primary Dx) Start: 02-23-2022 End: 02-23-2022 ambulatory Karen Weber MANAGER RESIDENTIAL Work Phone: [facility] Comment on above: Abnormality of gait due to impairment of balance (Primary Dx) Start: 02-14-2022 End: 02-14-2022 ambulatory David Lemon PT [facility] Comment on above: Abnormality of gait due to impairment of balance (Primary Dx) Start: 02-09-2022 End: 02-09-2022 ambulatory David Lemon PT [facility] Comment on above: Abnormality of gait due to impairment of balance (Primary Dx) Start: 02-06-2022 Refill Abdulaziz Caldera MD Work Phone: [facility] Comment on above: Prescription Refills Start: 02-02-2022 End: 02-02-2022 ambulatory Karen Weber MANAGER RESIDENTIAL Work Phone: [facility] Comment on above: Abnormality of gait due to impairment of balance (Primary Dx) Start: 01-31-2022 Refill Abdulaziz Caldera MD Work Phone: [facility] Comment on above: Refill Request Start: 01-30-2022 End: 01-30-2022 ambulatory Karen Weber MANAGER RESIDENTIAL Work Phone: [facility] Comment on above: Abnormality of gait due to impairment of balance (Primary Dx) Start: 01-23-2022 End: 01-23-2022 ambulatory Karen Weber MANAGER RESIDENTIAL Work Phone: [facility] Comment on above: Abnormality of gait due to impairment of balance (Primary Dx) Refill Request; Refi ll Request Start: 01-17-2022 Telephone encounter Luis Caldera MD Work Phone: [facility] Comment on above: Question Start: 01-12-2022 End: 01-12-2022 ambulatory David Poon PT [facility] Comment on above: Abnormality of gait due to impairment of balance (Primary Dx) Start: 01-11-2022 Telephone encounter Roselia miguel APRN.FRONT DESK SUPERVISOR Work Phone: [facility] Comment on above: Patient Question; Me dication Question; Referral Request Start: 01-10-2022 Telephone encounter Justina Monique APRN.FRONT DESK SUPERVISOR Work Phone: Cardiology Comment on above: Results [...] type Start: 01-02-2022 Telephone encounter Justina Monique APRN.FRONT DESK SUPERVISOR Work Phone: [facility] Comment on above: Results Start: 01-01-2022 End: 01-01-2022 Patient encounter procedure Justina Monique APRN.FRONT DESK SUPERVISOR Work Phone: Cardiology Comment on above: Hyperlipidemia with target LDL less than 100 (Primary Dx); Primary hypertension; Thoracic aortic aneurysm without rupture (HCC); Coronary artery disease involving [place] coronary artery of [place] heart without angina pectoris; Syncope, unspecified syncope [...] Non-visit Dr. Praveen Caldera Work Phone: [facility] Start: 12-28-2021 Non-patient / Non-visit Dr. Praveen Caldera Work Phone: [facility] Start: 12-28-2021 End: 12-29-2021 Evaluation and management of inpatient Dr. Luis Caldera Work Phone: [facility] Start: 12-27-2021 Non-patient / Non-visit Dr. Praveen Caldera Work Phone: [facility] Start: 12-27-2021 End: 12-27-2021 Emergency department patient visit DR. MELANIA WORKMAN MD. Facility:[facility] Start: 12-27-2021 End: 12-27-2021 Emergency department patient visit DR MELANIA WORKMAN MD [facility] Start: 12-14-2021 End: 12-14-2021 Patient encounter procedure Abdulaziz Caldera MD Work Phone: [facility] Comment on above: COVID-19 (Primary Dx ) Start: 12-08-2021 End: 12-08-2021 ambulatory Abdulaziz Caldera MD Work Phone: [facility] Comment on above: COVID-19 (Primary Dx ) Start: 12-08-2021 End: 12-08-2021 Telemedicine consultation with patient Abdulaziz Caldera MD Work Phone: [facility] Start: 12-08-2021 Telephone encounter Luis Caldera MD Work Phone: [facility] Comment on above: Patient Question Start: 12-06-2021 End: 12-07-2021 [facility] Start: 11-20-2021 Refill Abdulaziz Caldera MD [...] 10-05-2021 Refill Abdulaziz Caldera MD Work Phone: [facility] Comment on above: Refill Request (SEE RX NOTES) Start: 10-03-2021 Telephone encounter Luis Caldera MD Work Phone: [facility] Comment on above: Medication Question Start: 08-16-2021 Telephone encounter Marcella govea PA-C Work Phone: General Surgery Comment on above: 10-10-2021 Colon [facility] Procedures Date Procedure Procedure Detail Performing Clinician Start: 02-27-2025 X-ray of chest, PA and lateral views Dr. Luis Caldera MD Work Phone: Start: 02-27-2025 CT of head without contrast Dr. Camron Caldera MD Work Phone: Start: 02-27-2025 Urine microscopy: red cells Dr. Camron Caldera MD Work Phone: Start: 02-27-2025 Urnls dip stick/tablet reagent auto microscopy Dr. Luis Caldera MD Work Phone: Start: 02-27-2025 Blood count smear mcrscp w/mnl difrntl wbc count Dr. Luis Caldera MD Work Phone: Start: 02-27-2025 Calculation of international normalized ratio Dr. Luis Caldera MD Work Phone: Start: 02-27-[address] Matthew Caldera MD Work Phone: Start: 02-27-2025 Mean corpuscular hemoglobin concentration determination Dr. Luis Caldera MD Work Phone: Start: 02-27-2025 Nucleated red blood cell count procedure Dr. Luis Caldera MD Work Phone: Start: 02-27-2025 Platelet mean volume determination Dr. Gabrielle Caldera MD Work Phone: Start: 02-27-2025 X-ray of foot, three or more views Dr. Gabrielle Caldera MD Work Phone: Start: 02-18-2025 Mean corpuscular hemoglobin concentration determination Dr. Luis Caldera MD Work Phone: Start: 02-18-2025 Platelet mean volume determination Dr. Gabrielle Caldera MD Work Phone: Start: 02-17-2025 Mean corpuscular hemoglobin concentration determination Dr. Luis Caldera MD Work Phone: Start: 02-17-2025 Platelet mean volume determination Dr. Gabrielle Caldera MD Work Phone: Start: 02-16-2025 Mean corpuscular hemoglobin concentration determination Dr. Luis Caldera MD Work Phone: Start: 02-16-2025 Platelet mean volume determination Dr. Gabrielle Caldera MD Work Phone: Start: 02-15-2025 Mean corpuscular hemoglobin concentration determination Dr. Luis Caldera MD Work Phone: Start: 02-15-2025 Platelet mean volume determination Dr. Gabrielle Caldera MD Work Phone: Start: 02-11-2025 Blood count smear mcrscp w/mnl difrntl wbc count Dr. Luis Caldera MD Work Phone: Start: 02-11-2025 Mean corpuscular hemoglobin concentration determination Dr. Luis Caldera MD Work Phone: Start: 02-11-2025 Nucleated red blood cell count procedure Dr. Luis Caldera MD Work Phone: Start: 02-11-2025 Platelet mean volume determination Dr. Gabrielle Caldera MD Work Phone: Start: 02-11-[address] Matthew Caldera MD Work Phone: Start: 02-10-2025 Coagulation time, [...] QUADRIVALENT HIGH DOSE AGE 65+ Roselia Podlogar TIMEKEEPING SUPERVISOR.FRONT DESK SUPERVISOR Work Phone: Start: 04-06-2022 PFIZER-BIONTECH COVID-19 BIVALENT BOOSTER VACCINE, AGE 12+ YR Roselia Podlogar TIMEKEEPING SUPERVISOR.FRONT DESK SUPERVISOR Work Phone: Start: 04-06-2022 Adult depression screening assessment Roselia Podlogar TIMEKEEPING SUPERVISOR.FRONT DESK SUPERVISOR Work Phone: Start: 03-07-2022 PROTHROMBIN TIME/PT Abdulaziz Caldera MD Work Phone: Start: 03-07-2022 Adult depression screening assessment Abdulaziz Caldera MD Work Phone: Start: 03-02-2022 CT of head without contrast Dr. Camron Caldera Work Phone: Start: 03-02-2022 Plain chest X-ray Dr. Luis Caldera Work Phone: Start: 01-09-2022 Echo tthrc r-t 2d w/wom-mode compl spec&colr d Justina E Leonie TIMEKEEPING SUPERVISOR.[facility] Work Phone: Start: 01-01-2022 Urnls dip stick/tablet [...] Activity Detail Author Start: 10-11-2031 Colonoscopy COLONOSCOPY [facility] Start: 10-11-2031 COLORECTAL CANCER SCREENING COLORECTAL CANCER SCREENING [facility] Start: 02-27-2025 [facility] Start: 02-27-2025 End: 02-27-2025 [facility] Start: 02-11-2025 [facility] Start: 02-11-2025 Patient discharge [facility] Start: 02-11-2025 Application, wound VAC [facility] Start: 02-11-2025 [facility] Start: 02-10-2025 Elevation of head of bed [facility] Start: 02-10-2025 End: 02-10-2025 [facility] Start: 02-10-2025 Cardiac monitoring [facility] Start: 02-10-2025 Dietary regime [facility] Start: 02-10-2025 Log roll [facility] Start: 02-10-2025 Notification of physician [facility] Start: 02-10-2025 Provision of activit y privileges [facility] Start: 02-10-2025 Pulse taking [facility] Start: 02-09-2025 Catheterization of vein [facility] Start: 02-09-2025 Notification of physician [facility] Start: 02-09-2025 Preoperative care [facility] Start: 02-09-2025 End: 02-09-2025 [facility] Start: 02-08-2025 Consultation [facility] Start: 02-07-2025 [facility] Start: 02-05-2025 [facility] Start: 02-05-2025 Acid fast bacilli culture [facility] Start: 02-05-2025 Acid fast bacilli culture [facility] Start: 02-05-2025 Mycology culture [facility] Start: 02-04-2025 Removal of urinary catheter [facility] Start: 02-04-2025 [facility] Start: 02-03-2025 End: 02-03-2025 [facility] Start: 02-03-2025 Referral to vascular surgeon [facility] Start: 02-03-2025 Following clinical p athway protocol [facility] Start: 02-03-2025 Assessment of risk o f venous thromboembolism [facility] Start: 02-03-2025 Care regimes management [facility] Start: 02-03-2025 Consultation for treatment [facility] Start: 02-03-2025 Elevation of affecte d extremity [facility] Start: 02-03-2025 Fall prevention [facility] Start: 02-03-2025 Inhalation therapy procedure [facility] Start: 02-03-2025 Insertion of cathete r into peripheral vein [facility] Start: 02-03-2025 Introduction of urin barrington catheter [facility] Start: 02-03-2025 Measuring intake and output [facility] Start: 02-03-2025 Methicillin resistan t Staphylococcus aureus screening test [facility] Start: 02-03-2025 Notification of physician [facility] Start: 02-03-2025 Oxygen therapy [facility] Start: 02-03-2025 Providing care accor ding to standard [facility] Start: 02-03-2025 Provision of activit y privileges [facility] Start: 02-03-2025 Referral to occupati onal therapist [facility] Start: 02-03-2025 Referral to chip washer [facility] Start: 02-03-2025 Referral to service [facility] Start: 02-03-2025 Speech therapy assessment [facility] Start: 02-03-2025 Wound care [facility] Start: 02-03-2025 End: 02-03-2025 [facility] Start: 02-03-2025 Patient referral to dietitian [facility] Start: 02-02-2025 Hospital admission, emergency, from emergency room, medical nature [facility] Start: 02-02-2025 Respiratory pathogen s DNA and RNA panel - Respiratory specimen by ANGELY with probe detection [facility] Start: 02-02-2025 Verification routine [facility] Start: 02-02-2025 Admission procedure [facility] Start: 02-02-2025 [facility] Start: 02-02-2025 End: 02-02-2025 [facility] Start: 02-02-2025 Bacteria identified in Blood by Culture Blood Culture [facility] Start: 02-02-2025 Bacteria identified in Urine by Culture Urine Culture [facility] Start: 10-10-2024 Colonoscopy COLONOSCOPY [facility] Start: 10-10-2024 COLORECTAL CANCER SCREENING COLORECTAL CANCER SCREENING [facility] Start: 01-05-2024 ANNUAL PCP TEAM CITY CARRIER ASSISTANT MARLENE DISEASE VISIT ANNUAL PCP TEAM CHRONIC DISEASE VISIT [facility] Start: 01-05-2024 BP CONTROLLED (<130/80) BP CONTROLLE D (<130/80) [facility] Start: 12-04-2023 BP CONTROLLED (<130/80) BP CONTROLLE D (<130/80) [facility] Start: 11-20-2023 ANNUAL PCP TEAM CITY CARRIER ASSISTANT MARLENE DISEASE VISIT ANNUAL PCP TEAM CHRONIC DISEASE VISIT [facility] Start: 11-20-2023 BP CONTROLLED (<130/80) BP CONTROLLE D (<130/80) [facility] Start: 09-07-2023 BP CONTROLLED (<130/80) BP CONTROLLE D (<130/80) [facility] Start: 08-13-2023 HEMOGLOBIN/HEMATOCRIT HEMOGLOBIN/HEM ATOCRIT [facility] Start: 08-13-2023 SERUM CREATININE SERUM CREATININE [facility] Start: 08-09-2023 ANNUAL PCP TEAM [employer] CARRIER ASSISTANT MARLENE DISEASE VISIT ANNUAL PCP TEAM CHRONIC DISEASE VISIT [facility] Start: 08-09-2023 BP CONTROLLED (<130/80) BP CONTROLLE D (<130/80) [facility] Start: 07-12-2023 ANNUAL PCP TEAM [employer] CARRIER ASSISTANT MARLENE DISEASE VISIT ANNUAL PCP TEAM CHRONIC DISEASE VISIT [facility] Start: 07-12-2023 BP CONTROLLED (<130/80) BP CONTROLLE D (<130/80) [facility] Start: 06-03-2023 Anes dx/ther nerve block/injection prone pos ANESTH N BLOCK/INJ PRONE [facility] Start: 06-03-2023 Njx dx/ther sbst int rlmnr lmbr/sac w/img gdn NJX INTERLAMINAR LMBR/SAC [facility] Start: 06-03-2023 Injection using fluoroscopic guidance [facility] Start: 06-03-2023 Patient discharge [facility] Start: 04-17-2023 BP CONTROLLED (<130/80) BP CONTROLLE D (<130/80) [facility] Start: 04-16-2023 ANNUAL PCP TEAM [employer] CARRIER ASSISTANT MARLENE DISEASE VISIT ANNUAL PCP TEAM CHRONIC DISEASE VISIT [facility] Start: 04-06-2023 Adult depression scr eening assessment DEPRESSION SCREENING [facility] Start: 04-06-2023 ANNUAL PCP TEAM [employer] CARRIER ASSISTANT MARLENE DISEASE VISIT ANNUAL PCP TEAM CHRONIC DISEASE VISIT [facility] Start: 04-06-2023 BP CONTROLLED (<130/80) BP CONTROLLE D (<130/80) [facility] Start: 03-30-2023 3 comp foot exam completed DIABETIC FOOT EXAM [facility] Start: 03-15-2023 Influenza vaccination INFLUENZA (#1) [facility] Start: 03-07-2023 Adult depression scr eening assessment DEPRESSION SCREENING [facility] Start: 03-07-2023 ANNUAL PCP TEAM [employer] CARRIER ASSISTANT MARLENE DISEASE VISIT ANNUAL PCP TEAM CHRONIC DISEASE VISIT [facility] Start: 03-07-2023 BP CONTROLLED (<130/80) BP CONTROLLE D (<130/80) [facility] Start: 03-07-2023 SERUM CREATININE SERUM CREATININE [facility] Start: 03-05-2023 BP CONTROLLED (<130/80) BP CONTROLLE D (<130/80) [facility] Start: 03-02-2023 Hepatitis B screening URINE ALBUMIN:CREATININE RATIO [facility] Start: 02-13-2023 Patient discharge [facility] Start: 02-12-2023 Care regimes management [facility] Start: 02-12-2023 Notification of physician [facility] Start: 02-12-2023 [facility] Start: 02-12-[address] [facility] Start: 02-12-2023 End: 02-12-2023 [facility] Start: 02-11-2023 End: 02-11-2023 Blood culture [facility] Start: 02-11-2023 Assessment of risk o f venous thromboembolism [facility] Start: 02-11-2023 Consultation [facility] Start: 02-11-2023 Insertion of cathete r into peripheral vein [facility] Start: 02-11-2023 Providing care accor ding to standard [facility] Start: 02-11-2023 Provision of activit y privileges [facility] Start: 02-11-2023 Referral to occupati onal therapist [facility] Start: 02-11-2023 Referral to service [facility] Start: 02-11-2023 [facility] Start: 02-11-2023 Admission procedure [facility] Start: 02-11-2023 [facility] Start: 02-11-2023 Patient referral to dietitian [facility] Start: 02-10-2023 End: 02-10-2023 [facility] Start: 02-10-2023 End: 02-10-2023 Blood culture [facility] Start: 02-10-2023 Hemoglobin A1c/Hemoglobin.total in Blood HBA1C [facility] Start: 02-05-2023 Patient discharge [facility] Start: 02-04-2023 Assessment of risk o f venous thromboembolism [facility] Start: 02-04-2023 Bedrest [facility] Start: 02-04-2023 Elevation of head of bed [facility] Start: 02-04-2023 Taking patient vital signs [facility] Start: 02-04-2023 Wound care [facility] Start: 02-04-2023 [facility] Start: 02-04-2023 Catheterization of vein [facility] Start: 02-04-2023 Notification of physician [facility] Start: 02-04-2023 [facility] Start: 02-01-2023 Catheterization of vein [facility] Start: 02-01-2023 Notification of physician [facility] Start: 02-01-2023 [facility] Start: 02-01-2023 [facility] Start: 01-30-2023 Referral to resource program teacher [facility] Start: 01-30-2023 End: 01-30-2023 Administration of blood product [facility] Start: 01-29-2023 Speech therapy assessment [facility] Start: 01-29-2023 [facility] Start: 01-28-2023 End: 01-29-2023 [facility] Start: 01-27-2023 Application of intermittent pneumatic compression device [facility] Start: 01-27-2023 Following clinical p athway protocol [facility] Start: 01-27-2023 Methicillin resistan t Staphylococcus aureus screening test [facility] Start: 01-27-2023 Aspiration precautions [facility] Start: 01-27-2023 Assessment of risk o f venous thromboembolism [facility] Start: 01-27-2023 Care regimes management [facility] Start: 01-27-2023 Fall prevention [facility] Start: 01-27-2023 Insertion of cathete r into peripheral vein [facility] Start: 01-27-2023 Introduction of urin barrington catheter [facility] Start: 01-27-2023 Measuring intake and output [facility] Start: 01-27-2023 Providing care accor ding to standard [facility] Start: 01-27-2023 Provision of activit y privileges [facility] Start: 01-27-2023 Referral to gastroenterology service [facility] Start: 01-27-2023 Referral to occupati onal therapist [facility] Start: 01-27-2023 Referral to service [facility] Start: 01-27-2023 [facility] Start: 01-27-2023 Admission procedure [facility] Start: 01-27-2023 CT Chest and Abdomen and Pelvis WO and W contrast IV [facility] Start: 01-27-2023 CT of thorax, abdome n and pelvis with contrast CTA Chst, Abd, Pel W and/or WO [facility] Start: 01-27-2023 Blood chemistry [facility] Start: 01-27-2023 End: 01-28-2023 [facility] Start: 01-27-2023 Patient referral to dietitian [facility] Start: 01-26-2023 Patient discharge [facility] Start: 01-24-2023 Speech therapy assessment [facility] Start: 01-24-2023 Speech therapy assessment [facility] Start: 01-22-2023 Referral to resource program teacher [facility] Start: 01-21-2023 Administration of bl ood product [facility] Start: 01-21-2023 Catheterization of vein [facility] Start: 01-21-2023 Application of intermittent pneumatic compression device [facility] Start: 01-21-2023 Following clinical p athway protocol [facility] Start: 01-21-2023 Care regimes management [facility] Start: 01-21-2023 Notification of physician [facility] Start: 01-21-2023 Cardiac monitoring [facility] Start: 01-21-2023 Referral to gastroenterology service [facility] Start: 01-21-2023 End: 01-21-2023 [facility] Start: 01-21-2023 Oxygen therapy [facility] Start: 01-21-2023 Ambulation without limitation [facility] Start: 01-21-2023 Documentation procedure [facility] Start: 01-21-2023 Assessment of risk o f venous thromboembolism [facility] Start: 01-21-2023 Continuous pulse oximetry [facility] Start: 01-21-2023 Insertion of cathete r into peripheral vein [facility] Start: 01-21-2023 Measuring intake and output [facility] Start: 01-21-2023 Providing care accor ding to standard [facility] Start: 01-21-2023 Referral to occupati onal therapist [facility] Start: 01-21-2023 Referral to service [facility] Start: 01-21-2023 Verification routine [facility] Start: 01-21-2023 Vital signs measurements [facility] Start: 01-21-2023 Admission procedure [facility] Start: 01-21-2023 Transfusion of red b lood cells [facility] Start: 01-08-2023 Patient discharge [facility] Start: 01-05-2023 BP CONTROLLED (<130/80) BP CONTROLLE D (<130/80) [facility] Start: 01-05-2023 Admission procedure [facility] Start: 01-05-2023 Telepractice consultation [facility] Start: 01-04-2023 Application of intermittent pneumatic compression device [facility] Start: 01-04-2023 Following clinical p athway protocol [facility] Start: 01-04-2023 Aspiration precautions [facility] Start: 01-04-2023 Assessment of risk o f venous thromboembolism [facility] Start: 01-04-2023 Cardiac monitoring [facility] Start: 01-04-2023 Care regimes management [facility] Start: 01-04-2023 Catheterization of vein [facility] Start: 01-04-2023 Elevation of head of bed [facility] Start: 01-04-2023 Exercises [facility] Start: 01-04-2023 Fall prevention [facility] Start: 01-04-2023 Inhalation therapy procedure [facility] Start: 01-04-2023 Insertion of cathete r into peripheral vein [facility] Start: 01-04-2023 Introduction of urin barrington catheter [facility] Start: 01-04-2023 Measuring intake and output [facility] Start: 01-04-2023 Notification of physician [facility] Start: 01-04-2023 Providing care accor ding to standard [facility] Start: 01-04-2023 Provision of activit y privileges [facility] Start: 01-04-2023 Referral to occupati onal therapist [facility] Start: 01-04-2023 Referral to service [facility] Start: 01-04-2023 Tobacco use cessatio n education [facility] Start: 01-04-2023 Verification routine [facility] Start: 01-04-2023 Admission procedure [facility] Start: 01-04-2023 End: 01-04-2023 [facility] Start: 01-04-2023 End: 01-04-2023 Blood culture [facility] Start: 01-04-2023 Patient referral to dietitian [facility] Start: 01-01-2023 ANNUAL PCP TEAM [employer] CARRIER ASSISTANT MARLENE DISEASE VISIT ANNUAL PCP TEAM CHRONIC DISEASE VISIT [facility] Start: 01-01-2023 BP CONTROLLED (<130/80) BP CONTROLLE D (<130/80) [facility] Start: 01-01-2023 Hepatitis B surface antibody level LDL CHOLESTEROL [facility] Start: 01-01-2023 SERUM CREATININE SERUM CREATININE [facility] Start: 12-14-2022 ANNUAL PCP TEAM [employer] CARRIER ASSISTANT MARLENE DISEASE VISIT ANNUAL PCP TEAM CHRONIC DISEASE VISIT [facility] Start: 12-08-2022 ANNUAL PCP TEAM [employer] CARRIER ASSISTANT MARLENE DISEASE VISIT ANNUAL PCP TEAM CHRONIC DISEASE VISIT [facility] Start: 12-08-2022 BP CONTROLLED (<130/80) BP CONTROLLE D (<130/80) [facility] Start: 09-06-2022 ANNUAL PCP TEAM [place] CARRIER ASSISTANT MARLENE DISEASE VISIT ANNUAL PCP TEAM CHRONIC DISEASE VISIT [facility] Start: 09-02-2022 Hemoglobin A1c/Hemoglobin.total in Blood HBA1C [facility] Start: 08-30-2022 SERUM CREATININE SERUM CREATININE [facility] Start: 08-09-2022 End: 10-09-2022 CBC W Auto Differential panel - Blood CBC + DIFF Lab Routine Type 2 diabetes mellitus with diabetic neuropathy, with long-term current use of insulin (HCC) Expected: 08/09/2022, Expires: 10/09/2022 [facility] Work Phone: Comment on above: Expected: 08/09/2022 , Expires: 10/09/2022 Start: 08-09-2022 End: 10-09-2022 Comprehensive metabolic 2000 panel - Serum or Plasma COMP METABOLIC PANEL Lab Routine Type 2 diabetes mellitus with diabetic neuropathy, with long-term current use of insulin (HCC) Expected: 08/09/2022, Expires: 10/09/2022 [facility] Work Phone: Comment on above: Expected: 08/09/2022 , Expires: 10/09/2022 Start: 08-09-2022 End: 10-09-2022 Hemoglobin A1c in Blood HGB A1C Lab Routine Type 2 diabetes mellitus with diabetic neuropathy, with long-term current use of insulin (HCC) Expected: 08/09/2022, Expires: 10/09/2022 [facility] Work Phone: Comment on above: Expected: 08/09/2022 , Expires: 10/09/2022 Start: 08-06-2022 COVID-19 VACCINE (6 - Pfizer series) COVID-19 VACCINE (6 - Pfizer series) [facility] Start: 07-15-2022 ADVANCE DIRECTIVE DISCUSSION ADVANCE DIRECTIVE DISCUSSION [facility] Start: 07-15-2022 DEPRESSION ASSESSMENT DEPRESSION ASS ESSMENT [facility] Start: 07-11-2022 Patient discharge [facility] Work Phone: Start: 07-11-2022 Referral to service [facility] Work Phone: Start: 07-10-2022 [facility] Work Phone: Start: 07-10-2022 Following clinical p athway protocol [facility] Work Phone: Start: 07-10-2022 Assessment of risk o f venous thromboembolism [facility] Work Phone: Start: 07-10-2022 Cardiac monitoring [facility] Work Phone: Start: 07-10-2022 Care regimes management [facility] Work Phone: Start: 07-10-2022 Catheterization of vein [facility] Work Phone: Start: 07-10-2022 Continuous pulse oximetry [facility] Work Phone: Start: 07-10-2022 Elevation of head of bed [facility] Work Phone: Start: 07-10-2022 Exercises [facility] Work Phone: Start: 07-10-2022 Fall prevention [facility] Work Phone: Start: 07-10-[address]ed interventions [facility] Work Phone: Start: 07-10-2022 Incentive spirometry [facility] Work Phone: Start: 07-10-2022 Insertion of cathete r into peripheral vein [facility] Work Phone: Start: 07-10-2022 Introduction of urin barrington catheter [facility] Work Phone: Start: 07-10-2022 Measuring intake and output [facility] Work Phone: Start: 07-10-2022 Notification of physician [facility] Work Phone: Start: 07-10-2022 Oxygen therapy [facility] Work Phone: Start: 07-10-2022 Providing care accor ding to standard [facility] Work Phone: Start: 07-10-2022 Provision of activit y privileges [facility] Work Phone: Start: 07-10-2022 Referral to resource program teacher [facility] Work Phone: Start: 07-10-2022 Referral to occupati onal therapist [facility] Work Phone: Start: 07-10-2022 Referral to service [facility] Work Phone: Start: 07-10-2022 Tobacco use cessatio n education [facility] Work Phone: Start: 07-10-2022 [facility] Work Phone: Start: 07-10-2022 Patient referral to dietitian [facility] Work Phone: Start: 07-09-2022 Admission procedure [facility] Work Phone: Start: 03-15-2022 HEMOGLOBIN/HEMATOCRIT HEMOGLOBIN/HEM ATOCRIT [facility] Start: 03-15-2022 Influenza vaccination INFLUENZA (#1) [facility] Start: 03-07-2022 End: 05-07-2022 Comprehensive metabolic 2000 panel - Serum or Plasma [facility] Work Phone: Comment on above: Expected: 03/07/2022 , Expires: 05/07/2022 Start: 03-02-2022 [facility] Work Phone: Start: 02-27-2022 Hemoglobin A1c/Hemoglobin.total in Blood HBA1C [facility] Start: 02-20-2022 Hepatitis C antibody , confirmatory test DILATED RETINAL EXAM [facility] Start: 01-30-2022 End: 04-01-2022 ALBUMIN/CREAT RATIO RND UR ALBUMIN/CREAT RATIO RND UR Lab Routine Type 2 diabetes mellitus with stage 3 chronic kidney disease, with long-term current use of insulin (HCC) Expected: 01/30/2022, Expires: 04/01/2022 [facility] Work Phone: Comment on above: Expected: 01/30/2022 , Expires: 04/01/2022 Start: 01-30-2022 End: 04-01-2022 Hemoglobin A1c in Blood HGB A1C Lab Routine Type 2 diabetes mellitus with stage 3 chronic kidney disease, with long-term current use of insulin (HCC) Expected: 01/30/2022, Expires: 04/01/2022 [facility] Work Phone: Comment on above: Expected: 01/30/2022 , Expires: 04/01/2022 Start: 01-30-2022 End: 04-01-2022 SCHEDULE LAB TESTING SCHEDULE LAB TESTING Lab Routine Expected: 01/30/2022, Expires: 04/01/2022 [facility] Work Phone: Comment on above: Expected: 01/30/2022 , Expires: 04/01/2022 Start: 01-05-2022 End: 03-07-2022 Magnesium [Mass/volume] in Serum or Plasma MAGNESIUM BLD Lab Routine Altered mental status, unspecified altered mental status type Expected: 01/05/2022, Expires: 03/07/2022 [facility] Work Phone: Comment on above: Expected: 01/05/2022 , Expires: 03/07/2022 Start: 01-05-2022 End: 03-07-2022 Methylmalonate [Moles/volume] in Serum or Plasma METHYLMALONIC ACID Lab Routine Altered mental status, unspecified altered mental status type Expected: 01/05/2022, Expires: 03/07/2022 [facility] Work Phone: Comment on above: Expected: 01/05/2022 , Expires: 03/07/2022 Start: 01-01-2022 End: 03-03-2022 25-hydroxyvitamin D3 [Mass/volume] in Serum or Plasma [facility] Work Phone: Comment on above: Expected: 01/01/2022 , Expires: 03/03/2022 Start: 01-01-2022 End: 03-03-2022 Lipid 1996 panel - Serum or Plasma [facility] Work Phone: Comment on above: Expected: 01/01/2022 , Expires: 03/03/2022 Start: 12-30-2021 Blood chemistry [facility] Work Phone: Start: 12-29-2021 Patient discharge [facility] Work Phone: Start: 12-28-2021 Admission procedure [facility] Work Phone: Start: 12-27-2021 End: 12-28-2021 [facility] Work Phone: Start: 12-27-2021 Oxygen therapy [facility] Work Phone: Start: 12-27-2021 Incentive spirometry [facility] Work Phone: Start: 12-27-2021 Admission procedure [facility] Work Phone: Start: 12-27-2021 Assessment of risk o f venous thromboembolism [facility] Work Phone: Start: 12-27-2021 Following clinical p athway protocol [facility] Work Phone: Start: 12-27-2021 Insertion of cathete r into peripheral vein [facility] Work Phone: Start: 12-27-2021 Measuring intake and output [facility] Work Phone: Start: 12-27-2021 Providing care accor ding to standard [facility] Work Phone: Start: 12-27-2021 End: 12-27-2021 Referral to service [facility] Work Phone: Start: 12-06-2021 Bacteria identified in Blood by Culture Blood Culture [facility] Work Phone: Start: 11-23-2021 3 comp foot exam completed DIABETIC FOOT EXAM [facility] Start: 11-16-2021 Hepatitis B screening URINE ALBUMIN:CREATININE RATIO [facility] Start: 11-16-2021 Hepatitis B surface antibody level LDL CHOLESTEROL [facility] Start: 10-28-2021 Adult depression scr eening assessment DEPRESSION SCREENING [facility] Start: 09-15-2021 COVID-19 VACCINE (4 - Booster for Pfizer series) COVID-19 VACCINE (4 - Booster for Pfizer series) [facility] Start: 07-15-2021 ADVANCE DIRECTIVE DISCUSSION ADVANCE DIRECTIVE DISCUSSION [facility] Start: 07-15-2021 DEPRESSION ASSESSMENT DEPRESSION ASS ESSMENT [facility] Start: 03-12-2021 Colonoscopy COLONOSCOPY [facility] Start: 03-12-2021 COLORECTAL CANCER SCREENING COLORECTAL CANCER SCREENING [facility] Start: 12-25-2020 Urine microalbumin profile DTA P,TDAP,TD (3 - Td or Tdap) [facility] Start: 10-12-1992 COLOGUARD (FIT-DNA) COLOGUARD (FIT-D NA) [facility] Start: 10-12-[address] [facility] Start: 10-12-1992 FECAL OCCULT BLOOD FECAL OCCULT BLOO D [facility] Start: 10-12-1992 SIGMOIDOSCOPY SIGMOIDOSCOPY [facility] Start: 10-12-1965 BP CONTROLLED (<130/80) BP CONTROLLE D (<130/80) [facility] Acid fast bacilli culture [facility] Alanine aminotransfe rase [Enzymatic activity/volume] in Serum or Plasma [facility] Aspartate aminotrans ferase [Enzymatic activity/volume] in Serum or Plasma [facility] Bacteria identified in Blood by Culture Blood Culture [facility] Bacteria identified in Urine by Culture Urine Culture [facility] Creatine kinase [Enz ymatic activity/volume] in Serum or Plasma [facility] End: 01-05-2023 EPIL EEG ROUTINE EPIL EEG ROUTINE NEUROLOGY Routine Altered mental status, unspecified altered mental status type 1 Occurrences starting 01/05/2022 until 01/05/2023 [facility] Work Phone: Comment on above: 1 Occurrences starti ng 01/05/2022 until 01/05/2023 Fungus identified in Unspecified specimen by Culture [facility] Fungus identified in Unspecified specimen by Fungus stain [facility] Lipid 1996 panel - S chavez or Plasma [facility] Magnesium [Mass/volu me] in Serum or Plasma [facility] Magnesium [Mass/volu me] in Serum or Plasma [facility] Mycobacterium sp identified in Unspecified specimen by Organism specific culture [facility] Mycobacterium sp identified in Unspecified specimen by Organism specific culture [facility] Patient Education [facility] Work Phone: Patient referral [facility] Work Phone: PT PLAN OF CARE CERTIFICATION PT PLAN OF CARE CERTIFICATION Procedures Routine Abnormality of gait due to impairment of balance Ordered: 01/12/2022 [facility] Comment on above: Ordered: 01/12/2022 PT PLAN OF CARE CERTIFICATION PT PLAN OF CARE CERTIFICATION Procedures Routine Abnormality of gait due to impairment of balance Ordered: 03/09/2022 [facility] Comment on above: Ordered: 03/09/2022 SURGICAL PATHOLOGY [facility] Work Phone: Comment on above: Release Upon Orderin g for 1 Occurrences starting 10/10/2021, 1 completed Urine culture [facility] Urine culture [facility] [place] [facility] [place] [facility] Immunizations Immunization Date Immunization Notes Care Provider Yasir quintero 04-06-2022 COVID-19 booster vaccine, age 12+ yr, bivalent (PFIZER-BIONTECH) Roselia Raglandlogdavid TIMEKEEPING SUPERVISOR.FRONT DESK SUPERVISOR Work Phone: [facility] 04-06-2022 Influenza, high dose seasonal Dr. Luis Caldera MD Work Phone: [facility] 04-06-2022 influenza, high dose seasonal, preservative-free Dr. Maggy Roberts Work Phone: [facility] 04-06-2022 influenza, high-dose , quadrivalent vaccine (FLUZONE HIGH DOSE QUADRIVALENT) Roselia Madrigal TIMEKEEPING SUPERVISOR.FRONT DESK SUPERVISOR Work Phone: [facility] 03-28-2022 influenza, injectabl e, quadrivalent, preservative free Dr. Maggy Roberts Work Phone: [facility] 03-28-2022 influenza, seasonal, injectable Dr. Maggy Roberts Work Phone: [facility] 06-14-2021 Influenza, high dose seasonal Dr. Luis Caldera MD Work Phone: [facility] 06-14-2021 influenza, high dose seasonal, preservative-free Dr. Maggy Roberts Work Phone: [facility] 06-14-2021 influenza, high-dose , quadrivalent vaccine (FLUZONE HIGH DOSE QUADRIVALENT) Abdulaziz Caldera MD Work Phone: [facility] Work Phone: 05-18-2021 Covid (Pfizer) Dr. Maggy Roberts Work Phone: [facility] 02-24-2021 zoster vaccine recombinant Abdulaziz Caldera MD Work Phone: [facility] 12-13-2020 Covid (Pfizer) Dr. Ramón Caldera Work Phone: [facility] 09-30-2020 COVID-19 vaccine, ag e 12+ yr (PFIZER-BIONTECH - PURPLE TOP) Abdulaziz Caldera MD Work Phone: [facility] 09-09-2020 COVID-19 vaccine, ag e 12+ yr (PFIZER-BIONTECH - PURPLE TOP) Abdulaziz Caldera MD Work Phone: [facility] 04-16-2020 Influenza, high dose seasonal Dr. Luis Caldera MD Work Phone: [facility] 04-16-2020 influenza, high dose seasonal, preservative-free Dr. Maggy Roberts Work Phone: [facility] 04-16-2020 influenza, high-dose , quadrivalent vaccine (FLUZONE HIGH DOSE QUADRIVALENT) Abdulaziz Caldera MD Work Phone: [facility] 03-14-2020 zoster vaccine recombinant Abdulaziz Caldera MD Work Phone: [facility] Work Phone: 04-02-2019 Influenza, high dose seasonal Dr. Luis Caldera MD Work Phone: [facility] 04-02-2019 influenza, high dose seasonal, preservative-free Abdulaziz Caldera MD Work Phone: [facility] Work Phone: 05-08-2018 Influenza virus vaccine [facility] 04-15-2018 Influenza, high dose seasonal Dr. Luis Caldera MD Work Phone: [facility] 04-15-2018 influenza, high dose seasonal, preservative-free Abdulaziz Caldera MD Work Phone: [facility] 06-13-2017 Influenza, high dose seasonal Dr. Luis Caldera MD Work Phone: [facility] 06-13-2017 influenza, high dose sandeep, preservative-free Abdulaziz Caldera MD Work Phone: [facility] 06-20-2016 influenza, high dose seasonal, preservative-free Abdulaziz Caldera MD Work Phone: [facility] 11-24-2015 pneumococcal polysaccharide vaccine, 23 valent Abdulaziz Caldera MD Work Phone: [facility] 05-16-2015 Influenza, high dose seasonal Dr. Luis Caldera MD Work Phone: [facility] 05-16-2015 influenza, high dose seasonal, preservative-free Abdulaziz Caldera MD Work Phone: [facility] 10-27-2014 pneumococcal conjuga te vaccine, 13 valent Abdulaziz Caldera MD Work Phone: [facility] 10-27-2014 zoster vaccine, live Socrates Caldera MD Work Phone: [facility] 04-14-2013 Influenza virus vaccine [facility] 06-11-2011 influenza virus vaccine, unspecified formulation Abdulaziz Caldera MD Work Phone: [facility] 12-25-2010 tetanus toxoid, redu veronika diphtheria toxoid, and acellular pertussis vaccine, adsorbed Abdulaziz Caldera MD Work Phone: [facility] 04-25-2009 pneumococcal polysaccharide vaccine, 23 valent Abdulaziz Caldera MD Work Phone: [facility] 03-21-2000 diphtheria and tetan us toxoids, adsorbed for pediatric use Abdulaziz Caldera MD Work Phone: [facility] Work Phone: 02-11-1961 poliovirus vaccine, inactivated Abdulaziz Caldera MD Work Phone: [facility] Work Phone: 03-25-1959 poliovirus vaccine, inactivated Abdulaziz Caldera MD Work Phone: [facility] Work Phone: 10-16-1956 poliovirus vaccine, inactivated Abdulaziz Caldera MD Work Phone: [facility] Work Phone: 01-12-1956 poliovirus vaccine, inactivated Abdulaziz Caldera MD Work Phone: [facility] Work Phone: 12-03-1955 poliovirus vaccine, inactivated Abdulaziz Caldera MD Work Phone: [facility] Work Phone: Payers Date Payer Category Payer Self-pay [id number] 2021 Medicare [id number] 2021 Unknown [id number] 2012 Unknown HOSPITAL/MEDICAL GENERIC MEDICAL GENERIC [id number] 2012-Present [phone] [facility] [address] Indemnity [id number] 2012 Unknown HOSPITAL/MEDICAL GENERIC MEDICAL GENERIC [id number] 2012-Present [phone] [facility] [address] Indemnity [id number] 2012 Medicare MEDICARE MEDICAR E A AND B [id number] 2012-Present [phone] [place] [address] Medicare [id number] 2012 Medicare MEDICARE MEDICAR E A AND B [id number] 2012-Present [phone] [place] [address] Medicare [id number] 1945 Unknown [id number] 2.16.840.1.456968.3.579.2.627 Unknown [id number] 2.16.840.1.612009.3.579.2.462 Unknown [id number] 2.16.840.1.725170.3.579.2.462 Unknown [id number] 2.16.840.1.653784.3.579.2.462 Unknown [id number] 2.16.840.1.105510.3.579.2.462 Unknown [id number] 2.16.840.1.259329.3.579.2.462 Unknown [id number] 2.16.840.1.618606.3.579.2.462 Unknown [id number] 2.16.840.1.730784.3.579.2.462 Unknown [id number] 2.16.840.1.111049.3.579.2.462 Unknown [id number] 2.16.840.1.755127.3.579.2.462 Unknown [id number] 2.16.840.1.927408.3.579.2.462 Unknown [id number] 2.16.840.1.493284.3.579.2.462 Unknown [id number] 2.16.840.1.508704.3.579.2.462 Unknown [id number] 2.16.840.1.341781.3.579.2.462 Unknown [id number] 2.16.840.1.159165.3.579.2.462 Unknown [id number] 2.16.840.1.473357.3.579.2.462 Unknown [id number] 2.16.840.1.849109.3.579.2.462 Unknown [id number] 2.16.840.1.105665.3.579.2.462 Unknown [id number] 2.16.840.1.495864.3.579.2.462 Unknown [id number] 2.16.840.1.338836.3.579.2.462 Unknown [id number] 2.16.840.1.554423.3.579.2.462 Unknown [id number] 2.16.840.1.460674.3.579.2.462 Unknown [id number] 2.16.840.1.502558.3.579.2.462 Unknown [id number] 2.16.840.1.597446.3.579.2.462 Unknown [id number] 2.16.840.1.145208.3.579.2.462 Unknown [id number] 2.16840.1.468607.3.579.2.462 Unknown [id number] 2.840.1.279845.3.579.2.462 Unknown [id number] 2.840.1.207871.3.579.2.462 Unknown [id number] 2.840.1.558895.3.579.2.462 Unknown [id number] 2.840.1.779529.3.579.2.462 Unknown [id number] 2.840.1.418567.3.579.2.462 Unknown [id number] 2.840.1.319599.3.579.2.462 Unknown [id number] 2.840.1.916824.3.579.2.462 Unknown [id number] 2.840.1.492390.3.579.2.462 Unknown [id number] 2.840.1.943285.3.579.2.462 Unknown [id number] 2.840.1.440688.3.579.2.462 Unknown [id number] 2.840.1.290525.3.579.2.462 Unknown [id number] 2.840.1.938454.3.579.2.462 Unknown [id number] 2.16840.1.309840.3.579.2.462 Unknown [id number] 2.840.1.240042.3.579.2.462 Unknown [id number] 2.16.840.1.170859.3.579.2.462 Unknown [id number] 2.16.840.1.213731.3.579.2.462 Unknown [id number] 2.16.840.1.858883.3.579.2.462 Unknown [id number] 2.840.1.072185.3.579.2.462 Unknown [id number] 2.16.840.1.994425.3.579.2.462 Social History Date Type Detail Facility Start: 11-23-2020 End: 02-27-2025 Tobacco smoking status NHIS Never smoked tobacco [facility] Start: 09-06-2021 End: 12-03-2022 Alcohol intake Current non-drinker of alcohol (finding) [facility] Start: 1945 Sex Assigned At Not on file [facility] Start: 08-07-2021 End: 04-17-2022 Exposure to SARS-CoV-2 (event) Not sure [facility] Start: 12-06-2021 End: 05-30-2023 Tobacco smoking status NHIS Unknown if ever smoked [facility] Start: 01-10-2019 Spouse/ Signif icant Other [facility] Start: 1945 Sex Assigned At Male [facility] Work Phone: Tobacco smoking status No Smokin g Status Entered [facility] Start: 01-02-2022 End: 01-12-2022 Exposure to SARS-CoV-2 (event) Unable to assess [facility] Work Phone: Start: 11-23-2020 End: 04-06-2022 Tobacco use and exposure Smokeless tobacco non-user [facility] Work Phone: Start: 09-16-2013 Rare [facility] Start: 09-16-2013 None [facility] Start: 09-16-2013 Non-smoker [facility] Start: 11-19-2022 End: 12-03-2022 History of Social function [facility] Work Phone: Start: 11-19-2022 End: 12-03-2022 Tobacco use panel [facility] Work Phone: Adult Depression Screening Assessment 2 [facility] Work Phone: Start: 10-15-2024 End: 10-22-2024 Sex Male (finding) [facility] Medical Equipment Procedure Code Equipment Code [...] ABS FDA Start: 03-28-2018 FDA Start: 03-28-2018 ([id number]) [id number] FDA Start: 02-04-2023 ([id number]) [id number] FDA Start: 02-04-2023 ([id number]) ()[id number] FDA Start: 02-04-2023 FDA Start: 03-28-2018 [...] ABS FDA Start: 03-28-2018 FDA Start: 03-28-2018 FDA Start: 03-28-2018 Goals Date Patient Goal Desired Activity /State Functional Status Date Assessment Result Facility 02-11-2025 Functional status Bedrest [facility] Work Phone: 02-13-2023 Functional status Bedrest [facility] Work Phone: 02-05-2023 Functional status Chair [facility] Work Phone: 02-04-2023 Functional status Bedrest [facility] Work Phone: 01-26-2023 Functional status Chair mode [facility] Work Phone: 01-26-2023 Functional status With Assist of 2;Bedres t [facility] Work Phone: 01-25-2023 Functional status None [facility] Work Phone: 01-08-2023 Functional status Chair [facility] Work Phone: 07-11-2022 Functional status Ambulates [facility] Work Phone: 12-29-2021 Functional status Chair [facility] Work Phone: Mental Status Date Assessment Result Facility 02-27-2025 Cognitive function Voice/Name [facility] Work Phone: 02-11-2025 Cognitive function Voice/Name;To uch/Shaking;Light Pain;Deep Pain [facility] Work Phone: 02-02-2025 Cognitive function Level Of Cons ciousness Lethargic [facility] Work Phone: 02-02-2025 Cognitive function Voice/Name;Touch/Shaki ng [facility] Work Phone: 06-03-2023 Cognitive function Voice/Name [facility] Work Phone: 02-13-2023 Cognitive function Voice/Name [facility] Work Phone: 02-11-2023 Cognitive function Awake;Drowsy [facility] Work Phone: 02-10-2023 Cognitive function Awake;Appropr iate;Follows Commands;Drowsy [facility] Work Phone: 02-05-2023 Cognitive function Voice/Name [facility] Work Phone: 02-04-2023 Cognitive function Appropriate;[facility] Work Phone: 01-26-2023 Cognitive function Voice/Name [facility] Work Phone: 01-21-2023 Cognitive function Level Of Cons ciousness Drowsy;Lethargic [facility] Work Phone: 01-08-2023 Cognitive function Voice/Name [facility] Work Phone: 01-04-2023 Cognitive function Voice/Name [facility] Work Phone: 07-11-2022 Cognitive function Voice/Name [facility] Work Phone: 07-10-2022 Cognitive function Appropriate;[facility] Work Phone: 03-02-2022 Cognitive function Voice/Name [facility] Work Phone: 12-29-2021 Cognitive function Voice/Name [facility] Work Phone: 12-06-2021 Cognitive function Level Of Cons ciousness Awake;Alert;Appropriate [facility] Work Phone: Clinical Notes 10-25-2014 to 02-27-2025 Note Date & Type Note Facility 02-27-2025 Discharge summary Note Date/Time February 27, 2025 9:28pm [facility] Medical Records Department [address] [place] [address] Emergency Department Summary 02/27/25 MR#: [id number] Acct: [id number] Name: RICHARD ROY Rep #:[id number] : 1945 79 From: Bennett Troncoso DO PCP: Kuldip Cosby REFERRAL SPECIALIST-C Status:REG ER Location: ED HPI History of Present Illness Chief Complaint: Alt LOC Narrative Narrative: Patient is a 79-year-old male with past medical history of MRSA, PE on Eliquis, anxiety, depression, AAA, second-degree AV block type II, diabetes, osteomyelitis, recent surgery on his left foot. states that he has been more confused than normal but states that this has been going on ever since surgery. According to the at bedside she states that they were concerned that he is infection again in his foot prompting them to send him here for further evaluation management [facility] Medical History MRSA (methicillin resistant staph aureus) [...] 01/21/23 06/01/24 History mcg (50,000 unit) tablet pantoprazole 40 mg tablet,delayed 40 mg PO BID #60 tab s 02/05/23 06/01/24 Rx release sucralfate 1 gram tablet 1 g PO 0700,1100,1600 #90 ta bs 02/05/23 06/01/24 Rx melatonin 3 mg tablet 3 mg PO QHS PRN Insomnia 02/10/23 History memantine 10 mg tablet 10 mg PO BID #0 tabs 3 06/01/24 Rx bisacodyl 10 mg rectal suppository 10 mg VA DAILY PRN constipation 05/30/23 Unknown History acetaminophen 325 mg tablet 650 mg PO .q12hrs PAIN AND FEVER 10/07/23 06/01/24 History ferrous sulfate 325 mg (65 mg 325 mg PO DAILY 10/07/23 06/01/24 History iron) tablet apixaban 5 mg tablet (Eliquis) 5 mg PO BID #60 tabs 05/30/24 Rx ipratropium 0.5 mg-albuterol 3 mg 3 ml inhalation Q4H PRN shortness 02/02/25 Unknown History (2.5 mg base)/3 mL nebulization of breath soln metoprolol succinate 25 mg capsule 25 mg PO DAILY 01/13 09/08 Unknown History sprinkle, ext. release 24 hr (Kapspargo Sprinkle) clopidogrel 75 mg tablet 75 mg PO DAILY 90 days #0 ta bs 02/11/25 Unknown Rx arginine 7 gram-glutamine 7 PO BID 02/27/25 Unknown Hi story gram-calcium HMB 1.5 gram oral powder pack (Luis) insulin glargine 100 unit/mL (3 18 unit subcut DAILY d iabetes 02/27/25 Unknown History mL) subcutaneous pen (Lantus Solostar U-100 Insulin) paroxetine HCl 20 mg tablet (Paxil) 20 mg PO DAILY Unknown History Allergy/AdvReac Type Severity Reaction Status Date / Time propofol AdvReac Other Verified 02/27/25 18:27 Family History Mother Heart disease Diabetes Hypertension Father Heart disease Surgical History History of AAA (abdominal aortic aneurysm) repair History of foot surgery Hx of abdominal surgery H/O aortic valve repair History of thoracic aortic aneurysm repair Social History housing: assisted current occupational status: retired Smoking Status: Never smoker alcohol intake: never substance use type: does not use ROS ROS ED ROS Narrative Review of systems is unobtainable from the patient secondary to his altered mental status EXAM Physical Exam Narrative Exam Narrative: General: Patient lying in bed rest comfortably did not appear to be in acute distress Head: Atraumatic, normocephalic Eyes: PERRL bilaterally, EOMI bilaterally, no conjunctival injection noted Neck: Soft, supple, trachea midline Cardiovascular: Regular rate and rhythm Respiratory: Clear to auscultation bilaterally Abdomen: Soft, nondistended, no tenderness to palpation Extremities: +4/5 strength noted in the bilateral lower extremities, DP pulses +2/4 in the bilateral extremities Neurological: Patient was able tell me his name however he was confused on the year, and what season we are in Skin: Warm, dry Const Vital Signs: 02/27/25 18:27 02/27/25 18:30 02/27/25 19:04 Temperature 98.6 F 98.6 F Temperature Source Oral Oral Pulse Rate 77 79 Respiratory Rate 11 L 12 Blood Pressure 132/77 H 136/81 H Blood Pressure Mean 95 99 Pulse Ox 96 96 97 Oxygen Delivery Method Room Air Room Air Room Air 02/27/25 19:30 02/27/25 20:00 02/27/25 20:25 Temperature 99 F 99 F Temperature Source Axillary Axillary Pulse Rate 82 80 80 Respiratory Rate 17 14 14 Blood Pressure 152/83 H 156/90 H 156/90 H Blood Pressure Mean 106 112 112 Pulse Ox 96 97 97 Oxygen Delivery Method Room Air Room Air MDM MDM MDM Narrative Medical decision making narrative: Patient is a 79-year-old male who presents to the emergency department chief complaint of altered mental status. On the differential diagnose includes but not limited to intracranial hemorrhage, electrolyte abnormality, hypoglycemia, osteomyelitis of the left foot. Once the workup is obtained reviewed he will bereevaluated. Patient was given 30 cc/kg bolus of IV fluids based on ideal body weight as he has a BMI of greater than 30 he will be given a total of 2500 mL. Patient CBC reviewed and showed a leukocytosis of 12,000 likely reactive, hemoglobin 12.3, platelet count of 234. Patient INR normal 1.2, PT 15.1. Patient sodium normal 130, potassium normal at 4.2, creatinine was at his baseline around 1.49. Patient's AST and ALT are 14 and 21 respectively. Patient urinalysis reviewed showed no evidence of infection. Patient CT head brain without contrast showed no acute abnormalities. Patient's x-ray of his chest reviewed by myself by radiology showed no acute cardiopulmonary processes. Patient's x-ray of his foot was also reviewed by myself by radiology which showed prior surgical amputation of the fifth MTP joint no radiographic evidenceof osteomyelitis. Patient EKG reviewed showed atrial sensed ventricular paced rhythm with a rate of 70 bpm no Sgarbossa criteria were met. Discussed the results with the patient's at bedside and she would like to have him sent back to the facility. States that they are concerned to make surethat he does not have osteomyelitis. Once again she states that his mental status changes been going on for at least 3 weeks since his surgery and is not new. Advised return with worsening symptoms or concerns. All question concernsanswered he was discharged home in stable condition. Lab Data Labs: Laboratory Results - last 24 hr 02/27/25 02/27/25 19:25 19:42 WBC 12.7 H RBC 4.51 L Hgb 12.3 L Hct 38.8 L MCV 86.0 MCH 27.3 MCHC 31.7 L RDW Std Deviation 42.7 RDW Coeff of Nathaniel 13.8 Plt Count 234 MPV 9.4 Immature Gran % (Auto) 0.800 Neut % (Auto) 71.2 H Lymph % (Auto) 14.2 L [place] Davis % (Auto) 6.1 Eos % (Auto) 7.1 H Baso % (Auto) 0.6 Absolute Neuts (auto) 9.0 H Absolute Lymphs (auto) 1.80 Nucleated RBC % 0 PT 15.1 H INR 1.2 APTT 29.4 Sodium 138 Potassium 4.2 Chloride 98 Carbon Dioxide 27.8 Anion Gap 12 BUN 51 H Creatinine 1.49 H Estim Creat Clear Calc 54.14 Est GFR (MDRD) Non-Af 48 L BUN/Creatinine Ratio 34.0 H Glucose 176 H Lactic Acid 1.5 Calcium 9.9 Total Bilirubin 0.47 AST 14 ALT 21 Alkaline Phosphatase 107 Total Protein 6.6 Albumin 3.9 Globulin 2.7 Albumin/Globulin Ratio 1.4 Urine Color Straw Urine Clarity Clear Urine pH 6.0 Ur Specific [place] 1.010 Urine Protein 15 H Urine Glucose (UA) Normal Urine Ketones Negative Urine Occult Blood Negative Urine Nitrite Negative Urine Bilirubin Negative Urine Urobilinogen Normal Ur Leukocyte Esterase Negative Urine RBC 0 SEEN Urine WBC 0 SEEN Ur Squamous Epith Cells 0 SEEN Urine Bacteria 0 SEEN Urine Mucus 0 SEEN Radiography Diagnostic Testing: Clinical Impression(s) from Imaging Studies Foot X-Ray 02/27/25 19:04 IMPRESSION: 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 No radiographic evidence for osteomyelitis. If there is persistent clinical concern MRI or nuclear bone scan would have superior sensitivity. Reading Location: [facility] Brain CT 02/27/25 20:00 IMPRESSION: No acute abnormality. Maxillary sinus mucosal thickening Reading Location: [facility] Chest X-Ray 02/27/25 20:20 IMPRESSION: No evidence of acute cardiopulmonary disease. Reading Location: [facility] Discharge Plan Triage Chief Complaint: Alt LOC ED Provider: Bennett Troncoso Dx/Rx/DC Orders Clinical Impression: Diabetes, HTN (hypertension), Confusion, Atrial fibrillation Prescriptions: No Action ferrous sulfate 325 mg (65 mg iron) tablet 325 mg PO DAILY losartan 50 MG tablet 50 mg PO [...] mg Tablet 3 mg PO QHS PRN (Reason: Insomnia) Patient Comments: PRN PER CORRECTION MAR. memantine 10 mg Tablet 10 mg PO BID Qty: 0 0RF acetaminophen 325 mg tablet 650 mg PO .q12hrs Patient Comments: PRN PER CORRECTION MAR bisacodyl 10 mg suppository 10 mg VA DAILY PRN (Reason: constipation) cholecalciferol (vitamin D3) 1,250 mcg (50,000 unit) tablet 1,250 mcg PO MO ipratropium-albuterol 0.5 mg-3 mg(2.5 mg base)/3 mL solution for nebulization 3 ml inhalation Q4H PRN (Reason: shortness of breath) Patient Comments: [NO ORIGINAL SIG] Kapspargo Sprinkle 25 mg capsule,sprinkle,ER 24hr 25 mg PO DAILY clopidogrel 75 mg Tablet 75 mg PO DAILY 90 Days Qty: 0 0RF Luis 7-7-1.5 gram powder in packet PO BID Rx Instructions: packet orally; give 1 packet orally by mouth bid paroxetine HCl [Paxil] 20 mg tablet 20 mg PO DAILY insulin glargine [Lantus Solostar U-100 Insulin] 100 UNITS/ML insulin pen 18 unit subcut DAILY Eliquis 5 mg tablet 5 mg PO BID Qty: 60 11RF Primary Care Provider: Kuldip Cosby Referrals: Kuldip Cosby NP-C [Primary Care Provider] - Activity Restrictions/Additional Instructions: Blood work did not show any acute findings here today. X-ray did not show any evidence of osteomyelitis of his foot. His head CT did not show any acute findings either. Return with worsening symptoms or any concerns. Print Language: Cape Verdean Disposition Disposition: Home, Self Care What to do if you have Problems For any increased pain, shortness of breath, bleeding, nausea or vomiting, chestpain, or any unexpected problems, contact your Primary Care Provider. Call [facility] ([phone]) or report to the closest Emergency Room. Call 911 if necessary. 02/27/252127 <Electronically signed by Bennett Troncoso DO> Cosigner Signature (if applicable): CC: Kuldip Cosby ~ Signed [facility] Work Phone: 1(131) 880-847908-16-2025 Radiology Diagnostic study [facility]08-16-2025 Radiology Diagnostic study [facility]08-16-2025 Radiology Diagnostic study [facility] 02-11-2025 Progress note Author Meghana Cole [facility] Note Date/Time February 11, 2025 3:45 pm [facility] Medical Records Department [address] [facility] [place] [address] Progress Note - Surgery 02/11/25 0839 MR#: [id number] Acct: [id number] Name: RICHARD ROY Rep #:[id number] : 1945 79 From: Meghana LOZA PCP: Kuldip Cosby Status:ADM IN Location: [place] [id number]- 1 Subjective Subjective He is drowsy. He reports [...] H 02/11/25 06:54: Estim Creat Clear Calc REFERRAL SPECIALIST Micro: Microbiology 02/05/25 Unknown Tissue - [...] from discharge. Charges/Coding Visit Charges Inpatient E&M: 20271 Subs Hosp L1 02/11/25 0845 <Electronically signed by Meghana LOZA> Cosigner Signature (if applicable): 02/11/25 1545 <Electronically signed by Aneesh Ac MD> CC: ~ Signed [facility] Work Phone: 1(574) 177-202107-31-2025 Progress note Author Kee Mejia [facility] Note Date/Time February 11, 2025 3:15 pm [facility] Medical Records Department [address] [place] [address] Progress Note 02/11/25 1339 MR#: [id number] Acct: [id number] Name: RICHARD ROY Rep #:[id number] : 1945 79 From: Kee Mejia DPM PCP: Kuldip Cosby REFERRAL SPECIALIST-C Status:ADM IN Location: [place] [address] Subjective Subjective Patient was seen today for [...] 76.3 H, Lymph % (Auto) 9.9 L, [place] % (Auto) 7.1, Eos % (Auto) 4.1, [...] 1 week in office, sooner if needed. 02/11/25 1515 <Electronically signed by Kee Mejia DPM> Kee Mejia DPM Cosigner Signature (if applicable): CC: ~ Signed [facility] Work Phone: 1(549) 226-777307-31-2025 Discharge summary Author Hugo Cervantes [facility] Note Date/Time February 11, 2025 2:52 pm [facility] Medical Records Department [address] [facility] [place] [address] Discharge Summary 02/11/25 1444 MR#: [id number] Acct: [id number] Name: RICHARD ROY Rep #:[id number] : 1945 79 From: Hugo hollis MD PCP: Kuldip Cosby Status:ADM IN Location: [place] [id number]- Providers Date of Admission: 02/02/25 Primary Care Physician: AAYUSH Ross Consultations 02/03/25 01:20 Consult: Onc/Wound/program clinician Routine Comment: Consult: Podiatry Routine Consulting Provider: Kee Mejia Reason for Consult: L diabetic foot wound/ulcer EMERGENT Consult: No MD Notified: Yes Date Notified: 02/02/25 Time Notified: 23:13 Method of Notification: Text 02/03/25 18:07 Consult: Vascular Surgery Routine Consulting Provider: Aneesh Ac Reason for Consult: PAD with ulcer left foot EMERGENT Consult: No MD Notified: Yes Date Notified: 02/03/25 Time Notified: 18:07 Method of Notification: Text 02/08/25 07:07 Consult: Infectious Disease Routine Consulting Provider: Smith Leija Reason for Consult: s/p 5th ray resection for infection/concern for osteo EMERGENT Consult: No MD Notified: Yes Date Notified: 02/08/25 Time Notified: [...] bisacodyl 10 mg rectal suppository 10 mg VA DAILY PRN constipation 05/30/23 loperamide 2 mg [...] - (Left fifth ray resection) Procedures - (VERA ROUHIER, is a 89 F who presents with [...] behavioral disturbance history who presents to the [facility] ED on 02/02/2025 with history of recent [...] to have a woundVAC placed at the assisted. His hospitalization was complicated by an ANTHONY [...] risk benefits of going home to the assisted and would like to go when able. [...] % (Auto) Cancelled, Lymph % (Auto) Cancelled, Jefferson Davis % (Auto) Cancelled, Eos % (Auto) Cancelled, [...] Drop Cells Cancelled, Ovalocytes Cancelled, Stomatocytes Cancelled, [place] Bodies Cancelled, Cristobal Cells Cancelled, Bite Cells Cancelled, Crenated Cell [...] 76.3 H, Lymph % (Auto) 9.9 L, [place] % (Auto) 7.1, Eos % (Auto) 4.1, [...] QHS Patient Comments: PRN PER CORRECTION MAR. memantine 10 mg Tablet 10 mg PO BID Qty: 0 0RF acetaminophen 325 mg tablet 650 mg PO .q12hrs Patient Comments: PRN PER CORRECTION MAR bisacodyl 10 mg suppository 10 mg VA DAILY PRN (Reason: constipation) loperamide [Anti-Diarrheal (loperamide)] [...] in before D/C Order can be placed): Retirement Facility Charges/Coding Visit Charges Inpatient E&M: 10713 Disch Hosp >30min 02/11/25 1452 <Electronically signed by Hugo Cervantes MD> Cosigner Signature (if applicable): CC: Dr. Hugo Cervantes MD; Kuldip Cosby~ Signed [facility] Work Phone: 1([phone]) 565-266707-31-2025 Discharge summary Author Hugo Cervantes [facility] Note Date/Time February 11, 2025 2:23 pm [facility] Medical Records Department [address] [place], [place] [address] [address] Transfer to [facility] MR#: [id number] Acct: [id number] Name: RICHARD ROY Rep #:[id number] : [...] PRIOR TO HIS/HER TRANSFER TO THE ECF. 02/11/25 1423<Electronically signed by Hugo Cervantes MD> [...] noadded salt; consistency/texture adjustments as indicated per SOLAR MAINTENANCE TECHNICIAN. Continue Luis with breakfast and dinner to [...] QHS Patient Comments: PRN PER CORRECTION MAR. memantine 10 mg Tablet 10 mg PO BID Qty: 0 0RF acetaminophen 325 mg tablet 650 mg PO .q12hrs Patient Comments: PRN PER CORRECTION MAR bisacodyl 10 mg suppository 10 mg VA DAILY PRN (Reason: constipation) loperamide [Anti-Diarrheal (loperamide)] [...] in before D/C Order can be placed): Retirement Facility 02/11/25 1423 <Electronically signed by Hugo Cervantes MD> Cosigner Signature (if applicable): CC: WINSOME Mejia; Dr. Kraen Aly MD; Dr. Aneesh Ac MD; Dr. Smith Leija MD; Kuldip Cosby [facility] Work Phone: 1(249) [phone] [facility]07-31-2025 Progress note Author Smith [facility] Note Date/Time February 11, 2025 10:2 8am [facility] Medical Records Department [address] [place] [address] Progress Note - Infect Disease 02/11/25 1027 MR#: [id number] Acct: [id number] Name: RICHARD ROY Rep #:[id number] : 1945 79 From: Smith huang MD PCP: Kuldip Cosby Status:ADM IN Location: [place] [id number] Physical Exam Narrative Angioplasty yesterday, feeling ok, [...] PLAN: Taken to OR 02/05/[address] Wunning for L 5th toe amp and debridement [...] Cosigner Signature (if applicable): CC: ~ Signed [facility] Work Phone: 1(262) 934-675007-31-2025 Progress note Author Hugo Cervantes [facility] Note Date/Time February 11, 2025 9:30 am [facility] Medical Records Department [address] [place] [address] Progress Note - Hospitalist 02/11/25 0922 MR#: [id number] Acct: [id number] Name: RICHARD ROY Rep #:[id number] : 1945 79 From: Hugo hollis MD PCP: Kuldip Cosby REFERRAL SPECIALIST-C Status:ADM IN Location: [place] [address] Subjective Subjective No issues overnight, had his [...] 76.3 H, Lymph % (Auto) 9.9 L, [place] % (Auto) 7.1, Eos % (Auto) 4.1, [...] DVT: Eliquis Charges/Coding Visit Charges Inpatient E&M: 09896 Subs Hosp L2 02/11/25 0930 <Electronically signed by Hugo Cervantes MD> Cosigner Signature (if applicable): CC: ~ Signed [facility] Work Phone: 1(817) 994-612007-30-2025 Procedure [facility] 02-10-2025 Consult note Author Crys Carvajal [facility] Note Date/Time February 10, 2025 12:0 4pm [facility] Medical Records Department [address] [place] [address] Pharmacokinetic/Renal -Consult 02/10/25 1203 MR#: [id number] Acct: [id number] Name: RICHARD ROY Rep #:[id number] : 1945 79 From: Crys Carvajal PCP: Kuldip Cosby REFERRAL SPECIALISTJay Jay Status:ADM [facility] Management Pharmacy has been [...] monitor and adjust dosing as required. 02/10/25 1208 <Electronically signed by Crys Carvajal > Date _ Crys Carvajal Cosigner Signature (if applicable): Date CC: ~ Signed [facility] Work Phone: 1([phone]) 594-455007-30-2025 Progress note Author Hugo Cervantes [facility] Note Date/Time February 10, 2025 9:46 am [facility] Medical Records Department [address] [place] [address] Progress Note - Hospitalist 02/10/25 0942 MR#: [id number] Acct: [id number] Name: RICHARD ROY Rep #:[id number] : 1945 79 From: Hugo hollis MD PCP: Kuldip Cosby REFERRAL SPECIALIST-C Status:ADM IN Location: [place] [id number]- 1 Subjective Subjective No issues overnight, pending angiogram [...] 73.1 H, Lymph % (Auto) 11.0 L, [place] % (Auto) 8.5, Eos % (Auto) 4.7, [...] DVT: Eliquis Charges/Coding Visit Charges Inpatient E&M: 56216 Subs Hosp L2 02/10/25 0946 <Electronically signed by Hugo Cervantes MD> Cosigner Signature (if applicable): CC: ~ Signed [facility] Work Phone: 1(758) 215-596507-29-2025 Progress note Author Aneesh Ac [facility] Note Date/Time February 09, 2025 6:11 pm [facility] Medical Records Department [address] [place] [address] Progress Note - Surgery 02/09/25 180 MR#: [id number] Acct: [id number] Name: RICHARD ROY Rep #:[id number] : 1945 79 From: Aneesh Ac MD PCP: Kuldip Cosby REFERRAL SPECIALIST-C Status:ADM IN Location: [place] [address] Subjective Subjective Resting comfortably, eating dinner. No [...] 75.5 H, Lymph % (Auto) 10.7 L, [place] % (Auto) 7.1, Eos % (Auto) 4.5, [...] eliquis tonight/AM Charges/Coding Visit Charges Inpatient E&M: 88402 Subs Hosp L2 02/09/251 <Electronically signed by Aneesh Ac MD> Cosigner Signature (if applicable): CC: ~ Signed [facility] Work Phone: 1(671) 362-670307-29-2025 Progress note Author Smith Leija [facility] Note Date/Time February 09, 2025 10:1 7am [facility] Medical Records Department [address] [place] [address] Progress Note - Infect Disease 02/09/25 1016 MR#: [id number] Acct: [id number] Name: RICHARD ROY Rep #:[id number] : 1945 79 From: Smith huang MD PCP: Kuldip Cosby REFERRAL SPECIALIST-C Status:ADM IN Location: [place] [id number]- 1 Physical Exam Narrative Feeling fine, no pain [...] Cosigner Signature (if applicable): CC: ~ Signed [facility] Work Phone: 1(254) [phone] Progress note Author Hugo Cervantes [facility] Note Date/Time February 09, 2025 9:14 am [facility] Medical Records Department [address] [place] [address] Progress Note - Hospitalist 02/09/25908 MR#: [id number] Acct: [id number] Name: RICHARD ROY Rep #:[id number] : 1945 79 From: Hugo hollis MD PCP: Kuldip Cosby REFERRAL SPECIALIST-C Status:ADM IN Location: [place] [address]- Subjective Subjective Doing well, no issues overnight. [...] 75.5 H, Lymph % (Auto) 10.7 L, [place] % (Auto) 7.1, Eos % (Auto) 4.5, [...] DVT: Eliquis Charges/Coding Visit Charges Inpatient E&M: 90031 Subs Hosp L2 02/09/25 0916 <Electronically signed by Hugo Cervantes MD> Cosigner Signature (if applicable): CC: ~ Signed [facility] Work Phone: 1([phone]) [phone] Consult note Author Renetta Gonsales [facility] Note Date/Time February 09, 2025 7:10 am [facility] Medical Records Department [address] [place] [address] Pharmacokinetic/Renal -Consult 02/08/251930 MR#: [id number] Acct: [id number] Name: RICHARD ROY Rep #:[id number] : 1945 79 From: Renetta Gonsales PCP: Kuldip Cosby REFERRAL SPECIALISTJay Jay Status:ADM IN Y Location: [place] [address] Consult Antibiotic Management Pharmacy has been consulted [...] to monitor and adjust dosing as required. 02/08/25 1932 <Electronically signed by Renetta Gonsales> Date _ Renetta Gonsales 02/09/25 0710 <Electronically signed by Hugo painter MD> Cosigner Signature (if applicable): Date Hugo Cervantes MD CC: ~ Signed [facility] Work Phone: 1(319) 266-496507-29-2025 Progress note Author Kee Mejia [facility] Note Date/Time February 08, 2025 11:1 9pm [facility] Medical Records Department [address] [place] [address] Progress Note 02/08/25 190 MR#: [id number] Acct: [id number] Name: RICHARD ROY Rep #:[id number] : 1945 79 From: Kee Mejia DPM PCP: Kulidp Cosby REFERRAL SPECIALISTJay Jay Status:ADM IN Location: [place] [address] Subjective Subjective Patient seen today for follow [...] 72.7 H, Lymph % (Auto) 11.5 L, [place] % (Auto) 9.5, Eos % (Auto) 4.6, [...] Discussed with Dr. Cervantes and nursing. 02/08/25 7861 <Electronically signed by Kee Mejia DPM> Kee Mejia DPM Cosigner Signature (if applicable): CC: ~ Signed [facility] Work Phone: 1([phone]) [phone] Consult note Author Smith Leija [facility] Note Date/Time February 08, 2025 3:37 pm [facility] Medical Records Department [address] [place] [address] Consultation - Infectious Dx 02/08/25 1532 MR#: [id number] Acct: [id number] Name: RICHARD ROY Rep #:[id number] : 1945 79 From: Smith huang MD PCP: Kuldip Cosby REFERRAL SPECIALISTLisaC Status:ADM IN Location: [facility] [id number]- 1 Assessment & Plan Assessment/Plan (1) Acute [...] bisacodyl 10 mg rectal suppository 10 mg VA DAILY PRN constipation 05/30/23 Unknown History loperamide [...] thoracic aortic aneurysm repair Social History housing: assisted current occupational status: retired Smoking Status: Never [...] 72.7 H, Lymph % (Auto) 11.5 L, [place] % (Auto) 9.5, Eos % (Auto) 4.6, [...] Signature (if applicable): CC: Kuldip Cosby~ Signed [facility] Work Phone: 1([phone]) [phone] Progress note Author Hugo Cervantes [facility] Note Date/Time February 08, 2025 8:55 am [facility] Medical Records Department [address] [place] [address] Progress Note - Hospitalist 02/08/2527 MR#: [id number] Acct: [id number] Name: RICHARD ROY Rep #:[id number] : 1945 79 From: Hugo hollis MD PCP: Kuldip Cosby REFERRAL SPECIALISTJay Jay Status:ADM IN Location: [place] [address] Subjective Subjective Doing well, no issues overnight. [...] 72.7 H, Lymph % (Auto) 11.5 L, [place] % (Auto) 9.5, Eos % (Auto) 4.6, [...] DVT: Eliquis Charges/Coding Visit Charges Inpatient E&M: 10768 Subs Hosp L2 02/08/25 0855 <Electronically signed by Hugo Cervantes MD> Cosigner Signature (if applicable): CC: ~ Signed [facility] Work Phone: 1(704) 287-850107-27-2025 Progress note Author Kee Mejia [facility] Note Date/Time February 07, 2025 9:40 am [facility] Medical Records Department [address] [place] [address] Progress Note 02/07/25912 MR#: [id number] Acct: [id number] Name: RICHARD ROY Rep #:[id number] : 1945 79 From: Kee Mejia DPM PCP: Kuldip Cosby REFERRAL SPECIALISTJay Jay Status:ADM IN Location: [place] [address] Subjective Subjective Patient was seen this morning [...] (Auto) 66.1, Lymph % (Auto) 15.0 L, [place] % (Auto) 9.5, Eos % (Auto) 6.8 [...] Cosigner Signature (if applicable): CC: ~ Signed [facility] Work Phone: 1(236) 416-374907-27-2025 Progress note Author Hugo Cervantes [facility] Note Date/Time February 07, 2025 9:32 am [facility] Medical Records Department [address] [place] [address] Progress Note - Hospitalist 02/07/25917 MR#: [id number] Acct: [id number] Name: RICHARD ROY Rep #:[id number] : 1945 79 From: Hugo hollis MD PCP: Kuldip Cosby REFERRAL SPECIALISTLisaC Status:ADM IN Location: [facility] [id number]- [id number] Subjective Subjective Doing well, wound looks [...] (Auto) 66.1, Lymph % (Auto) 15.0 L, [place] % (Auto) 9.5, Eos % (Auto) 6.8 [...] DVT: Eliquis Charges/Coding Visit Charges Inpatient E&M: 41892 Subs Hosp L2 02/07/25 0932 <Electronically signed by Hugo Cervantes MD> Cosigner Signature (if applicable): CC: ~ Signed [facility] Work Phone: [phone]) 121-226007-27-2025 Consult note Author Haile Bautista [facility] Note Date/Time February 07, 2025 9:18 am [facility] Medical Records Department [address] [place] [address] Pharmacokinetic/Renal -Consult 02/06/252218 MR#: [id number] Acct: [id number] Name: RICHARD ROY Rep #:[id number] : 1945 79 From: Haile Bautista PCP: Kuldip Cosby REFERRAL SPECIALISTLisaC Status:ADM IN Y Location: [place] [address] Consult Antibiotic Management Pharmacy has been consulted [...] Preliminary Meth. resistant Staph. 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 custom clothier Gram positive organism 02/03/25 18:00 Wound - [...] [date and time ordered]: 02/07/25 @ 0600 02/06/252 <Electronically signed by Haile huang> Date _ Halie Bautista 02/07/25 0918 <Electronically signed by Hugo painter MD> Cosigner Signature (if applicable): Date Hugo Cervantes MD CC: ~ Signed [facility] Work Phone: 1([phone]) 177-552607-27-2025 Consult note Author Haile Bautista [facility] Note Date/Time February 07, 2025 9:18 am [facility] Medical Records Department [address] [place] [address] Pharmacokinetic/Renal -Consult 02/07/25 0650 MR#: [id number] Acct: [id number] Name: RICHARD ROY Rep #:[id number] : 1945 79 From: Haile Bautista PCP: Kuldip Cosby REFERRAL SPECIALISTLisaC Status:ADM IN Y Location: [place] [address] Consult Antibiotic Management Pharmacy has been consulted [...] Date Hugo Cervantes MD CC: ~ Signed [facility] Work Phone: 1(702) 903-785107-26-2025 Consult note Author Hugo Interiano [facility] Note Date/Time February 06, 2025 4:31 pm [facility] Medical Records Department [address] [place] [address] Pharmacokinetic/Renal -Consult 02/06/25 1630 MR#: [id number] Acct: [id number] Name: RICHARD ROY Rep #:[id number] : 1945 79 From: Hugo Garcia [facility] PCP: Kuldip Cosby REFERRAL SPECIALISTJay Jay Status:ADM IN Y Location: [place] [address] Consult Antibiotic Management Pharmacy has been consulted [...] Preliminary Meth. resistant Staph. 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 custom clothier Gram positive organism 02/03/25 18:00 Wound - [...] LEVEL RECEIVED Current Vancomycin Dose: 1250mg q12h (,) Number of Doses Received: x3 of current [...] 02/06/25 1631 <Electronically signed by Hugo Gallardo [facility]> Date _ Hugo Interiano [facility] Cosigner Signature (if applicable): Date CC: ~ Signed [facility] Work Phone: 1([phone]) 479-787007-26-2025 Progress note Author Kee Mejia [facility] Note Date/Time February 06, 2025 10:5 8am [facility] Medical Records Department [address] [place] [address] Progress Note 02/06/25 1054 MR#: [id number] Acct: [id number] Name: RICHARD ROY Rep #:[id number] : 1945 79 From: Kee Mejia DPM PCP: Kuldip Cosby REFERRAL SPECIALIST-C Status:ADM IN Location: [place] [address] Subjective Subjective Patient was seen this morning [...] Total 1811.25 / 1811.25 1170.25 / 1270.25 / 425 Output Total / 850 / 2009 1200 / 1200 Balance 961.25 / 961.25 [...] 74.2 H, Lymph % (Auto) 10.1 L, [place] % (Auto) 8.6, Eos % (Auto) 5.9 [...] Preliminary Meth. resistant Staph. 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 custom clothier Gram positive organism 02/03/25 18:00 Wound - [...] IMPRESSION: Postsurgical change. No complication. Reading Location: [facility] Physical Exam Const alert and no apparent [...] times. Podiatry will continue to follow. 02/06/25 1057 <Electronically signed by Kee Mejia DPM> Kee Mejia DPM Cosigner Signature (if applicable): CC: ~ Signed ADDENDUM by WINSOME Mejia on 02/06/25 at 1058 Addendum Wound care left foot: betadine solution, gauze and kerlix dressing - change daily 02/06/25 1058 <Electronically signed by Kee doll DPM> Date _ Kee Mejia DPM Cosigner Signature (if applicable): Date cc: ~* Signed [facility] Work Phone: 1([phone]) 837-417407-26-2025 Progress note Author Hugo Cervantes [facility] Note Date/Time February 06, 2025 10:2 6am [facility] Medical Records Department [address] [place] [address] Progress Note - Hospitalist 02/06/25905 MR#: [id number] Acct: [id number] Name: RICHARD ROY Rep #:[id number] : 1945 79 From: Hugo hollis MD PCP: Kuldip Cosby REFERRAL SPECIALISTLisaC Status:ADM IN Location: [place] [address] Subjective Subjective No issues overnight, tolerated surgery [...] 74.2 H, Lymph % (Auto) 10.1 L, [place] % (Auto) 8.6, Eos % (Auto) 5.9 [...] Preliminary Meth. resistant Staph. 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 custom clothier Gram positive organism 02/05/25 00:05 Nasal Secretion [...] IMPRESSION: Postsurgical change. No complication. Reading Location: [facility] Physical Exam Narrative General: Alert, Oriented x1-2, [...] DVT: Lovenox Charges/Coding Visit Charges Inpatient E&M: 45737 Subs Hosp L2 02/06/25 1026 <Electronically signed by Hugo Cervantes MD> Cosigner Signature (if applicable): CC: ~ Signed [facility] Work Phone: [phone]) 560-426507-25-2025 Consult note Author Kareem Pabon [facility] Note Date/Time February 05, 2025 2:23 pm [facility] Medical Records Department [address] [place] [address] Anesthesia Postop Eval I 02/05/251421 MR#: [id number] Acct: [id number] Name: RICHARD ROY Rep #:[id number] : 1945 79 From: Kareem REDMAN PCP: Kuldip Cosby REFERRAL SPECIALISTLisaC Status:ADM IN Y Race: C Location: [place] [address] Anesthesia: Postop Eval I Current Vital Signs [...] CRNA Cosigner Signature: Date CC: ~ Signed [facility] Work Phone: 1([phone]) 503-322407-25-2025 Radiology Diagnostic study noteWooster Community [id number] Consult note Author Vega Hahn [facility] Note Date/Time February 05, 2025 1:16 pm [facility] Medical Records Department [address] [place] [address] Pre-Anesthesia Evaluation 02/05/25 1258 MR#: [id number] Acct: [id number] Name: RICHARD ROY Rep #:[id number] : 1945 79 From: Vega Hahn MD PCP: Kuldip Cosby REFERRAL SPECIALISTLisaC Status:ADM IN Y Race: C Location: [place] [address] ASA Classification* ASA Classification ASA Classification: 4 [...] ray amputation Anesthesia History Anesthesia History - zinc plate grainer: Anesthesia History - zinc plate grainer Hx Hospitalization Yes: GI BLEED 05/30/23 11:36 [...] 11:18 water? Meds patient instructed to see mar 02/05/25 11:18 take am of surgery PONV PONV - zinc plate grainer: PONV - zinc plate grainer Female HX of Motion Sickness HX of N/V After Surgery Non-Smoker Duration of Surgery greater than 60 minutes Number of Risk Factors PONV Score Height & Weight Height & Weight: Anesthesia: Height & Weight Height 6 ft 02/05/25 11:18 Weight: 118 kg 02/05/25 11:18 Body Mass Index (BMI) 35.2 02/05/25 11:18 Respiratory Assessment Respiratory Assessment - zinc plate grainer: Respiratory Tract Infection Hx - zinc plate grainer Hx Respiratory Tract Infection Yes: pneumonia 02/05/25 02:17 STOP Sleep Apnea STOP Sleep Apnea - zinc plate grainer: STOP Sleep Apnea - zinc plate grainer Hx Hypertension Yes 02/03/25 10:30 Hx Sleep [...] Tobacco Use History Tobacco Use History - zinc plate grainer: Tobacco Use History - zinc plate grainer Tobacco Use Smoking Status Never smoker 02/03/25 01:28 Hx Tobacco Use No 02/03/25 01:28 Years Smoking Packs Smoked per Day Smoking Cessation Date was within the last 15 years Hx Smoking Cessation Date Hx Smoking Cessation No 02/03/25 01:28 Counseling Hematologic Medial History Hematologic Hx - zinc plate grainer: 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 Hx of Blood Transfusion Hx of Transfusion [...] confused, unrespo /Reproduction History /Reproductive History - zinc plate grainer: /Reproductive Hx- zinc plate grainer Hx Now Gestational Age (in weeks): EDC: [...] 325 Mg Tablet PO Not Given DAILY@1200 FRED Glucagon 1 mg 02/03/25 01:20 Glucagon 1 [...] Powder 15gm Bottle TOPICAL 1 applic BID FRED Administration Protocol Ondansetron HCl 4 mg 02/03/25 [...] 1 Gm Tablet PO Not Given 0700,1100,1600 FRED Tamsulosin HCl 0.4 mg 02/03/25 22:00 02/04/25 [...] bisacodyl 10 mg rectal suppository 10 mg VA DAILY PRN constipation 05/30/23 Unknown History loperamide [...] thoracic aortic aneurysm repair Social History housing: assisted current occupational status: retired Smoking Status: Never smoker alcohol intake: never substance use type: does not use Review of Systems (Anesthesia) ROS Narrative System reviewed and no additional complaints, except as documented. 02/05/25 1316 <Electronically signed by Vega sales MD> Date _ [facility]: Date CC: ~ Signed [facility] Work Phone: 1(213) 279-960307-25-2025 Procedure [facility] 02-05-2025 Progress note Author Hugo Cervantes [facility] Note Date/Time February 05, 2025 8:40 am [facility] Medical Records Department [address] [place] [address] Progress Note - Hospitalist 02/05/25 0838 MR#: [id number] Acct: [id number] Name: RICHARD ROY Rep #:[id number] : 1945 79 From: Hugo hollis MD PCP: Holdrege,Kuldip REFERRAL SPECIALIST-C Status:ADM IN Location: [facility] [id number]- 1 Subjective Subjective No issues overnight. Hemoglobin [...] 76.4 H, Lymph % (Auto) 9.4 L, [place] % (Auto) 8.0, Eos % (Auto) 5.2 [...] DVT: Lovenox Charges/Coding Visit Charges Inpatient E&M: 87878 Subs Hosp L2 02/05/25 0840 <Electronically signed by Hugo Cervantes MD> Cosigner Signature (if applicable): CC: ~ Signed [facility] Work Phone: 1(364) 273-519607-25-2025 Consult note Author Deangelo Quintero [facility] Note Date/Time February 04, 2025 10:0 7pm [facility] Medical Records Department [address] [place] [address] Pharmacokinetic/Renal -Consult 02/04/252206 MR#: [id number] Acct: [id number] Name: RICHARD ROY Rep #:[id number] : 1945 79 From: Deangelo Calvillo od PCP: Kuldip Cosby REFERRAL SPECIALISTJay Jay Status:ADM IN Y Location: [place] [id number]- [id number] Consult Antibiotic Management Pharmacy has been [...] [date and time ordered]: 02/06 @ 0930 02/04/253 <Electronically signed by Deangelo north> Date _ Deangelo Quintero Cosignjanessa Signature (if applicable): Date CC: ~ Signed [facility] Work Phone: [phone]) 350-968507-24-2025 Consult note Author Meghana Cole [facility] Note Date/Time February 04, 2025 7:36 pm [facility] Medical Records Department [address] [place] [address] Consultation - Surgical 02/04/25729 MR#: [id number] Acct: [id number] Name: RICHARD ROY Rep #:[id number] : 1945 79 From: Meghana LOZA PCP: Kuldip Cosby REFERRAL SPECIALISTLisaC Status:ADM IN Location: [facility] [id number]- [id number] Assessment & Plan Assessment/Plan (1) Type [...] a 79 M who presented to the [facility] ER on 02/02/25 with new cough, fever, [...] from that. Heis on Eliquis for Afib. [facility] Medical History (Updated 02/04/25 @ 19:03 by [...] bisacodyl 10 mg rectal suppository 10 mg VA DAILY PRN constipation 05/30/23 Unknown History loperamide [...] thoracic aortic aneurysm repair Social History housing: assisted current occupational status: retired Smoking Status: Never [...] 80.0 H, Lymph % (Auto) 5.3 L, [place] % (Auto) 9.4, Eos % (Auto) 4.1, [...] Loaiza RVT Charges/Coding Visit Charges Inpatient E&M: 16172 Init Hosp L2 02/04/251905 <Electronically signed by Meghana LOZA> Cosigner Signature (if applicable): 02/04/251935 <Electronically signed by Aneesh Ac MD> CC: Kuldip Cosby~ Signed [facility] Work Phone: 1([phone]) 118-175007-24-2025 Progress note Author Kee Mejia [facility] Note Date/Time February 04, 2025 3:41 pm [facility] Medical Records Department [address] [facility] [place] [address] Progress Note 02/04/25 1537 MR#: [id number] Acct: [id number] Name: RICHARD ROY Rep #:[id number] : 1945 79 From: Kee Mejia DPNelson PCP: Kuldip Cosby Status:ADM IN Location: [facility] [id number]- 1 Subjective Subjective Patient was seen today for [...] 02/03/25 02/04/25 23:59 23:59 23:59 Intake Total 2100 / 2100 4060 / 4060 1125.83 / 1125.83 Output Total 750 / 750 700 / 700 Balance 2100 / 2100 3310 / 3310 425.83 / 425.83 Lab [...] 80.0 H, Lymph % (Auto) 5.3 L, [place] % (Auto) 9.4, Eos % (Auto) 4.1, [...] discussed wound status with wound nurse. 02/04/25 1541 <Electronically signed by Kee Mejia DPM> Kee Mejia DPM Cosigner Signature (if applicable): CC: ~ Signed [facility] Work Phone: [phone]) [phone] Consult note Author Crys Carvajal [facility] Note Date/Time February 04, 2025 10:5 3am [facility] Medical Records Department [address] [place] [address] Pharmacokinetic/Renal -Consult 02/04/25 1052 MR#: [id number] Acct: [id number] Name: RICHARD ROY Rep #:[id number] : 1945 79 From: Crys Carvajal PCP: Kuldip Cosby REFERRAL SPECIALIST-C Status:ADM IN Y Location: [place] [address] Consult Antibiotic Management Pharmacy has been consulted [...] monitor and adjust dosing as required. 02/04/25 1053 <Electronically signed by Crys Carvajal > Date _ Crys Carvajal Cosigner Signature (if applicable): Date CC: ~ Signed [facility] Work Phone: [phone] Progress note Author Hugo Cervantes [facility] Note Date/Time February 04, 2025 9:05 am [facility] Medical Records Department [address] [place] [address] Progress Note - Hospitalist 02/04/25901 MR#: [id number] Acct: [id number] Name: RICHARD ROY Rep #:[id number] : 1945 79 From: Hugo hollis MD PCP: Kuldip Cosby REFERRAL SPECIALISTLisaC Status:ADM IN Location: [place] [address] Subjective Subjective No issues overnight, awaiting MRI [...] 80.0 H, Lymph % (Auto) 5.3 L, [place] % (Auto) 9.4, Eos % (Auto) 4.1, [...] Physician: Kuldip Cosby Performed By: Giancarlo Loaiza, RVT Physical Exam Narrative General: Alert but [...] DVT: Lovenox Charges/Coding Visit Charges Inpatient E&M: 46371 Subs Hosp L2 02/04/25 0905 <Electronically signed by Hugo Cervantes MD> Cosigner Signature (if applicable): CC: ~ Signed [facility] Work Phone: 1([phone]) 164-198907-24-2025 Consult note Author Kee Mejia [facility] Note Date/Time February 03, 2025 11:4 9pm [facility] Medical Records Department [address] [place] [address] Consultation 02/03/251814 MR#: [id number] Acct: [id number] Name: RICHARD ROY Rep #:[id number] : 1945 79 From: Kee Mejia DPM PCP: Kuldip Cosby Status:ADM IN Location: [facility] [id number]- 1 Assessment & Plan Assessment/Plan (1) Cellulitis [...] to his pacemaker - I discussed with microbiological laboratory technician and they are going to check [...] she was called by the nursing facility [facility]il[facility] in about 3-4 weeks ago and states [...] of heart disease and has a pacemaker. [facility] Medical History History of stress test History [...] bisacodyl 10 mg rectal suppository 10 mg VA DAILY PRN constipation 05/30/23 Unknown History loperamide [...] thoracic aortic aneurysm repair Social History housing: assisted current occupational status: retired Smoking Status: Never [...] 86.2 H, Lymph % (Auto) 3.6 L, [place] % (Auto) 8.7, Eos % (Auto) 0.6, [...] Clarity Clear, Urine pH 5.0, Ur Specific [place] 1.015, Urine Protein 30 H, Urine Glucose [...] 83.8 H, Lymph % (Auto) 4.0 L, [place] % (Auto) 8.4, Eos % (Auto) 2.9, [...] 3. Chronic paranasal sinus disease. Reading Location: [facility] Chest X-Ray 02/02/25 20:20 IMPRESSION: Pulmonary findings as above. Reading Location: [facility] Foot X-Ray 02/02/25 20:20 IMPRESSION: No acute osseous abnormality. Reading Location: [facility] Extremity Arterial Study 02/03/25 10:01 Interpretation Summary Right JOSTIN 0.88, moderate arterial insufficiency. Doppler/PVR waveforms of the right ankle normal at rest. Left JOSTIN 1.05, normal though may be artificially elevated. Doppler/PVR waveformsof the left leg mildly diminished infrapopliteal. TBI diminished. Ordering Physician: Kee Mejia Referring Physician: Kuldip Cosby Performed By: Giancarlo Loaiza RVT 02/03/25 3036 <Electronically signed by Kee Mejia DPM> Cosigner Signature (if applicable): CC: Kuldip Cosby~ Signed ADDENDUM by DPNelson Mejia on 02/03/25 at 2349 Addendum Correction - Infectious Disease is not on consult but given the findings and concern for osteomyelitis it would be beneficial to consult Infectious Disease -will discuss with hospitalist who is the admitting physician/team. 02/03/25 911<Electronically signed by Kee Mejia DPM> Rudy Signature (if applicable): cc: Kuldip Cosby ~* Signed [facility] Work Phone: [phone]) 747-786307-23-2025 [facility]07-23-2025 Progress note Author Hugo Cervantes [facility] Note Date/Time February 03, 2025 11:5 6am [facility] Medical Records Department [address] [place] [address] Progress Note - Hospitalist 02/03/25 0956 MR#: [id number] Acct: [id number] Name: RICHARD ROY Rep #:[id number] : 1945 79 From: Hugo hollis MD PCP: Kuldip Cosby Status:ADM IN Location: [place] [address] Subjective Subjective No issues overnight, maintaining oxygen [...] 86.2 H, Lymph % (Auto) 3.6 L, [place] % (Auto) 8.7, Eos % (Auto) 0.6, [...] Clarity Clear, Urine pH 5.0, Ur Specific [place] 1.015, Urine Protein 30 H, Urine Glucose [...] 83.8 H, Lymph % (Auto) 4.0 L, [place] % (Auto) 8.4, Eos % (Auto) 2.9, [...] 3. Chronic paranasal sinus disease. Reading Location: [facility] Chest X-Ray 02/02/25 20:20 IMPRESSION: Pulmonary findings as above. Reading Location: [facility] Foot X-Ray 02/02/25 20:20 IMPRESSION: No acute osseous abnormality. Reading Location: [facility] Physical Exam Narrative General: Alert but [...] DVT: Lovenox Charges/Coding Visit Charges Inpatient E&M: 99410 Subs Hosp L2 02/03/25 1156 <Electronically signed by Hugo Cervantes MD> Cosigner Signature (if applicable): CC: ~ Signed [facility] Work Phone: [phone]) [phone] Consult note Author Aneesh Suazo [facility] Note Date/Time February 03, 2025 2:11 am [facility] Medical Records Department [address] [place] [address] Pharmacokinetic/Renal -Consult 02/03/25207 MR#: [id number] Acct: [id number] Name: RICHARD ROY Rep #:[id number] : 1945 79 From: Aneesh Suazo PCP: Kuldip Cosby REFERRAL SPECIALIST-C Status:ADM IN Location: [place] [address] Consult Antibiotic Management Pharmacy has been consulted [...] on [date and time ordered]: 02/04/25 @0930 02/03/25208 <Electronically signed by Aneesh estrada> Date _ Aneesh Suazo 02/03/25 0211 <Electronically signed by Karne gallo MD> Cosigner Signature (if applicable): Date Karen Aly MD CC: ~ Signed [facility] Work Phone: 1(509) 259-268907-23-2025 History and physical note Author Karen Aly [facility] Note Date/Time February 03, 2025 12:2 6am [facility] Medical Records Department [address] [place] [address] H&P Exam - Hospitalist 02/02/251 MR#: [id number] Acct: [id number] Name: RICHARD ROY Rep #:[id number] : 1945 79 From: Karen Aly MD PCP: Kuldip Cosby REFERRAL SPECIALIST-C Status:ADM IN [place] [facility] [id number] HPI - General General Date of Admission: [...] behavioral disturbance history who presents to the [facility] ED on 02/02/2025 with history of recent [...] to magnesium 4 g IV x 1. [facility] Medical History History of stress test History [...] bisacodyl 10 mg rectal suppository 10 mg VA DAILY PRN constipation 05/30/23 Unknown History loperamide [...] thoracic aortic aneurysm repair Social History housing: assisted current occupational status: retired Smoking Status: Never [...] 86.2 H, Lymph % (Auto) 3.6 L, [place] % (Auto) 8.7, Eos % (Auto) 0.6, [...] Clarity Clear, Urine pH 5.0, Ur Specific [place] 1.015, Urine Protein 30 H, Urine Glucose [...] 3. Chronic paranasal sinus disease. Reading Location: [facility] Chest X-Ray 02/02/25 20:20 IMPRESSION: Pulmonary findings as above. Reading Location: [facility] Foot X-Ray 02/02/25 20:20 IMPRESSION: No acute osseous abnormality. Reading Location: [facility] Assessment & Plan Assessment/Plan (1) Pneumonia: [...] behavioral disturbance history who presents to the [facility] ED on 02/02/2025 with history of recent [...] 16 minutes. Charges/Coding Visit Charges Inpatient E&M: 87282 Init Hosp L3 Procedures Hospitalists Procedures: 04013 Advncd Care Plan 30 Min 02/03/25 0026 <Electronically signed by Karen Aly MD> Cosigner Signature (if applicable): CC: Dr. Karen Aly MD; Kuldip Cosby~ Signed [facility] Work Phone: 1(551) 227-569307-23-2025 Evaluation note* Diagnosis Onset Date Resolution Status [...] foot ulcer acute February 02, 2025 11:12pm [facility] Work Phone: 1(230) [phone] Discharge summary Author Nicholas Galarza [facility] Note Date/Time February 02, 2025 10:4 5pm [facility] Medical Records Department [address] [place] [address] Emergency Department Summary 02/02/25 MR#: [id number] Acct: [id number] Name: RICHARD ROY Rep #:[id number] : 1945 79 From: Nicholas Lemons PCP: Kuldip Cosby REFERRAL SPECIALIST-C Status:REG ER Location: ED HPI History [...] bisacodyl 10 mg rectal suppository 10 mg VA DAILY PRN constipation 05/30/23 Unknown History loperamide [...] thoracic aortic aneurysm repair Social History housing: assisted current occupational status: retired Smoking Status: Never [...] patient [facility] No she was called because he has [...] recent hospitalizations, reviewed medications. Reviewed x-ray from assisted which reported no obvious focal infiltrate Factors affecting care: n as per [facility] Social determinants of health: long-term resident History obtained from others: EMS Consults: [...] Dispo: Discharge This note was generated with [employer] dictation software. It may contain incorrectwords, spelling, [...] 86.2 H Lymph % (Auto) 3.6 L [place] % (Auto) 8.7 Eos % (Auto) 0.6 [...] Clarity Clear Urine pH 5.0 Ur Specific [place] 1.015 Urine Protein 30 H Urine Glucose [...] 3. Chronic paranasal sinus disease. Reading Location: [facility] Chest X-Ray 02/02/25 20:20 IMPRESSION: Pulmonary findings as above. Reading Location: [facility] Foot X-Ray 02/02/25 20:20 IMPRESSION: No acute osseous abnormality. Reading Location: [facility] Discharge Plan Triage Chief Complaint: Fever [...] QHS Patient Comments: PRN PER CORRECTION MAR. memantine 10 mg Tablet 10 mg PO BID Qty: 0 0RF acetaminophen 325 mg tablet 650 mg PO .q12hrs Patient Comments: PRN PER CORRECTION MAR bisacodyl 10 mg suppository 10 mg VA DAILY PRN (Reason: constipation) loperamide [Anti-Diarrheal (loperamide)] [...] Luis Caldera MD [Non-Staff] - Print Language: Cape Verdean What to do if you have Problems For any increased pain, shortness of breath, bleeding, nausea or vomiting, chestpain, or any unexpected problems, contact your Primary Care Provider. Call [facility] ([phone]) or report to the closest Emergency Room. Call 911 if necessary. 02/02/252244 <Electronically signed by Nicholas Galarza DO> Cosigner Signature (if applicable): CC: Kuldip Cosby ~ Signed [facility] Work Phone: 1(983) 616-938607-23-2025 Discharge summary Author Nicholas Michell [facility] Note Date/Time February 02, 2025 10:4 5pm [facility] Medical Records Department [address] [place] [address] Emergency Department Summary 02/02/25 MR#: [id number] Acct: [id number] Name: RICHARD ROY Rep #:[id number] : 1945 79 From: Nicholas Lemons PCP: Kuldip Cosby Status:REG ER Location: ED HPI History of Present Illness Chief Complaint: Fever [facility] Medical History History of stress test History [...] bisacodyl 10 mg rectal suppository 10 mg VA DAILY PRN constipation 05/30/23 Unknown History loperamide [...] thoracic aortic aneurysm repair Social History housing: assisted current occupational status: retired Smoking Status: Never [...] recent hospitalizations, reviewed medications. Reviewed x-ray from assisted which reported no obvious focal infiltrate Factors affecting care: n as per HPI Social determinants of health: long-term resident History obtained from others: EMS Consults: Internal medicine [facility] Narrative: The patient was initially tachypneic with [...] Dispo: Discharge This note was generated with Bubok dictation software. It may contain incorrectwords, spelling, [...] 86.2 H Lymph % (Auto) 3.6 L [place] % (Auto) 8.7 Eos % (Auto) 0.6 [...] Clarity Clear Urine pH 5.0 Ur Specific [place] 1.015 Urine Protein 30 H Urine Glucose [...] 3. Chronic paranasal sinus disease. Reading Location: [facility] Chest X-Ray 02/02/25 20:20 IMPRESSION: Pulmonary findings as above. Reading Location: [facility] Foot X-Ray 02/02/25 20:20 IMPRESSION: No acute osseous abnormality. Reading Location: [facility] Discharge Plan Triage Chief Complaint: Fever [...] QHS Patient Comments: PRN PER CORRECTION MAR. memantine 10 mg Tablet 10 mg PO BID Qty: 0 0RF acetaminophen 325 mg tablet 650 mg PO .q12hrs Patient Comments: PRN PER CORRECTION MAR bisacodyl 10 mg suppository 10 mg VA DAILY PRN (Reason: constipation) loperamide [Anti-Diarrheal (loperamide)] [...] Luis Caldera MD [Non-Staff] - Print Language: [place] Verdean What to do if you have Problems For any increased pain, shortness of breath, bleeding, nausea or vomiting, chestpain, or any unexpected problems, contact your Primary Care Provider. Call [facility] ([phone]) or report to the closest Emergency Room. Call 911 if necessary. 02/02/252244 <Electronically signed by Nicholas Galarza DO> Cosigner Signature (if applicable): CC: Kuldip Cosby ~ Signed [facility] Work Phone: 1(455) 994-728207-23-2025 History and physical note Author Karen Aly [facility] Note Date/Time February 03, 2025 12:2 6am [facility] Medical Records Department [address] [place] [address] H&P Exam - Hospitalist 02/02/251 MR#: [id number] Acct: [id number] Name: RICHARD ROY Rep #:[id number] : 1945 79 From: Karen Aly MD PCP: Kuldip Cosby REFERRAL SPECIALIST-C Status:ADM IN Location: [facility] MC152-5 HPI - General General Date of Admission: [...] behavioral disturbance history who presents to the [facility] ED on 02/02/2025 with history of recent [...] to magnesium 4 g IV x 1. [facility] Medical History History of stress test History [...] bisacodyl 10 mg rectal suppository 10 mg VA DAILY PRN constipation 05/30/23 Unknown History loperamide [...] thoracic aortic aneurysm repair Social History housing: assisted current occupational status: retired Smoking Status: Never [...] 86.2 H, Lymph % (Auto) 3.6 L, [place] % (Auto) 8.7, Eos % (Auto) 0.6, [...] Clarity Clear, Urine pH 5.0, Ur Specific [place] 1.015, Urine Protein 30 H, Urine Glucose [...] 3. Chronic paranasal sinus disease. Reading Location: [facility] Chest X-Ray 02/02/25 20:20 IMPRESSION: Pulmonary findings as above. Reading Location: [facility] Foot X-Ray 02/02/25 20:20 IMPRESSION: No acute osseous abnormality. Reading Location: [facility] Assessment & Plan Assessment/Plan (1) Pneumonia: [...] behavioral disturbance history who presents to the [facility] ED on 02/02/2025 with history of recent [...] 16 minutes. Charges/Coding Visit Charges Inpatient E&M: 69551 Init Hosp L3 Procedures Hospitalists Procedures: 54190 Advncd Care Plan 30 Min 02/03/25 0026 <Electronically signed by Karen Aly MD> Cosigner Signature (if applicable): CC: Dr. Karen Aly MD; Kuldip Cosby~ Signed [facility] Work Phone: 1(284) 599-536107-23-2025 History and physical note [facility] Medical Records Department [address] [place] [address] H&P Exam - Hospitalist 02/02/25 2241 MR#: [id number] Acct: [id number] Name: RICHARD ROY Rep #:[id number] : 1945 79 From: Karen Aly MD PCP: Kuldip Cosby Status:ADM IN Location: [place] [address] HPI - General General Date of Admission: [...] behavioral disturbance history who presents to the [facility] ED on 02/02/2025 with history of recent [...] to magnesium 4 g IV x 1. [facility] Medical History History of stress test History [...] bisacodyl 10 mg rectal suppository 10 mg VA DAILY PRN constipation 05/30/23 Unknown History loperamide [...] thoracic aortic aneurysm repair Social History housing: assisted current occupational status: retired Smoking Status: Never [...] 86.2 H, Lymph % (Auto) 3.6 L, [place] % (Auto) 8.7, Eos % (Auto) 0.6, [...] Clarity Clear, Urine pH 5.0, Ur Specific [place] 1.015, Urine Protein 30 H, Urine Glucose [...] 3. Chronic paranasal sinus disease. Reading Location: [facility] Chest X-Ray 02/02/25 20:20 IMPRESSION: Pulmonary findings as above. Reading Location: [facility] Foot X-Ray 02/02/25 20:20 IMPRESSION: No acute osseous abnormality. Reading Location: [facility] Assessment & Plan Assessment/Plan (1) Pneumonia: [...] behavioral disturbance history who presents to the [facility] ED on 02/02/2025 with history of recent [...] as in a.m., will request podiatry adry dhillonation per discussion with family, continue affected extremity [...] 16 minutes. Charges/Coding Visit Charges Inpatient E&M: 84393 Init Hosp L3 Procedures Hospitalists Procedures: 59068 Advncd Care Plan 30 Min 02/03/25 0026 Cosigner Signature (if applicable): CC: Dr. Karen Aly MD; Kuldip Cosby~ Signed [facility]07-22-2025 Discharge summary [facility] Medical Records Department [address] [place] [address] Emergency Department Summary 02/02/25 MR#: [id number] Acct: [id number] Name: RICHARD ROY Rep #:[id number] : 1945 79 From: Nicholas Lemons PCP: Holdrege,Kuldip REFERRAL SPECIALIST-C Status:REG ER Location: ED HPI History of Present Illness Chief Complaint: Fever [facility] Medical History History of stress test History [...] bisacodyl 10 mg rectal suppository 10 mg VA DAILY PRN constipation 05/30/23 Unknown History loperamide [...] thoracic aortic aneurysm repair Social History housing: assisted current occupational status: retired Smoking Status: Never [...] Air Room Air Oxygen Flow Rate (L/min) [facility] Narrative Medical decision making narrative: HISTORY OF PRESENT ILLNESS: Chief complaint: Cough, lethargy, altered mental status and fever 79-year-old male history of type 2 diabetes, hyperlipidemia, PE, A-fib on Eliquis, secondary heart block status post pacemaker presents with recent cough,lethargy and fever. Also noted altered mentalstatus. History is provided by and son. notes patient was behaving normally yesterday at [facility]. No she was called because he has [...] reviewed, Vital signs reviewed Constitutional: please see [facility] HENT: MMM Eyes: Pupils equal round and [...] MEDICAL DECISION MAKING: Chief Complaint: please see [facility] External records reviewed: No recent hospitalizations, reviewed medications. Reviewed x-ray from assisted which reported no obvious focal infiltrate Factors affecting care: n as per HPI Social determinants of health: long-term resident History obtained from others: EMS Consults: [...] Dispo: Discharge This note was generated with Bubok dictation software. It may contain incorrectwords, spelling, [...] 86.2 H Lymph % (Auto) 3.6 L [place] % (Auto) 8.7 Eos % (Auto) 0.6 [...] Clarity Clear Urine pH 5.0 Ur Specific [place] 1.015 Urine Protein 30 H Urine Glucose [...] 3. Chronic paranasal sinus disease. Reading Location: [id number] Chest X-Ray 02/02/25 20:20 IMPRESSION: Pulmonary findings as above. Reading Location: [facility] Foot X-Ray 02/02/25 20:20 IMPRESSION: No acute osseous abnormality. Reading Location: [facility] Discharge Plan Triage Chief Complaint: Fever [...] QHS Patient Comments: PRN PER CORRECTION MAR. memantine 10 mg Tablet 10 mg PO BID Qty: 0 0RF acetaminophen 325 mg tablet 650 mg PO .q12hrs Patient Comments: PRN PER CORRECTION MAR bisacodyl 10 mg suppository 10 mg VA DAILY PRN (Reason: constipation) loperamide [Anti-Diarrheal (loperamide)] [...] Luis Caldera MD [Non-Staff] - Print Language: [place]an What to do if you have Problems For any increased pain, shortness of breath, bleeding, nausea or vomiting, chestpain, or any unexpected problems, contact your Primary Care Provider. Call [facility] ([phone]) or report tothe closest Emergency Room. Call 911 if necessary. 02/02/252244 Cosigner Signature (if applicable): CC: Kuldip Cosby ~ Signed [facility]07-22-2025 Radiology Diagnostic study note [facility] Imaging Services [address] [place], [place] [id number] Foot 2 Views MR#: [id number] Acct: [id number] Name: RICHARD ROY Rep #: [id number] : 1945 M 79 From: Pascual Patino MD PCP: Kuldip Cosby Status: REG ER Study:Foot 2 Views Date of Exam: 5 Exam# [id number] Ordering Dr: Ronak Galarza DO PROCEDURE: FOOT 2 VIEWS 02/02/2025 REASON FOR EXAM: REDNESS, LATERAL 5TH DIGIT ULCER TECHNIQUE: FOOT 2 VIEWS COMPARISON: None. FINDINGS: No evidence of acute fracture or dislocation. The joint spaces are maintained. Heavy atherosclerosis. RAD/Foot 2 Views IMPRESSION: No acute osseous abnormality. Reading Location: [facility] CC: Dr. Nicholas Galarza DO; Kuldip Cosby ~ Dieing Out Machine Operator: Signed [facility]07-22-2025 Radiology Diagnostic study note [facility] Imaging Services [address] [place], [place] [id number] Chest 1 View (Portable) MR#: [id number] Acct: [id number] Name: RICHARD ROY Rep #: [id number] : 1945 M 79 From: Pascual Patino MD PCP: Kuldip Cosby Status: REG ER Study:Chest 1 View (Portable) Date of Exam: 02/02/25 Exam# [id number] Ordering Dr: Ronak Galarza DO PROCEDURE: CHEST 1 VIEW (PORTABLE) 02/02/2025 REASON FOR EXAM: ALTERED MENTAL STATUS TECHNIQUE: Frontal view of the chest. COMPARISON: 02/10/2023. FINDINGS: The heart is enlarged. Prior sternotomy. Left chest pacemaker. Left midlung consolidative opacity which may represent pneumonia (limited assessment due to rotation). RAD/Chest 1 View (Portable) IMPRESSION: Pulmonary findings as above. Reading Location: [id number] CC: Dr. Nicholas Galarza DO; Kuldip Cosby ~ Dieing Out Machine Operator: Signed [facility]07-22-2025 Radiology Diagnostic study note [facility] Imaging Services [address] [place] [address] Brain/Head without Contrast MR#: [id number] Acct: [id number] Name: RICHARD ROY Rep #: [id number] : 1945 79 From: [facility] lonnie Johnson MD PCP: Kuldip Cosby Status: REG ER Study:Brain/Head without Contrast Date of Exa m: 02/02/25 Exam# [id number] Ordering Dr: Ronak Galarza DO PROCEDURE: BRAIN/HEAD WITHOUT CONTRAST 02/02/2025 [...] 3. Chronic paranasal sinus disease. Reading Location: [facility] CC: Dr. Nicholas Galarza, DO; Kuldip Cosby ~ Dieing Out Machine Operator: Signed [facility]03-31-2025 Evaluation note* Diagnosis Onset Date Resolution Status Admit Date Presence of cardiac pacemaker acute October 12, 2024 1:09pm Atrial fibrillation chronic October 12, 2024 1:09pm Diabetes chronic October 12 1:09pm HLD (hyperlipidemia) chronic [facility] 2024 1:09pm HTN (hypertension) chronic October 12, 2024 1:09pm Sick sinus syndrome chronic October 12, 2024 1:09pm [facility] Work Phone: 1([phone]) 613-415803-31-2025 Evaluation note* Diagnosis Onset Date Resolution Status Admit Date Presence of cardiac pacemaker acute October 12, 2024 1:09pm Atrial fibrillation chronic October 12, 2024 1:09pm Diabetes chronic October 12 1:09pm HLD (hyperlipidemia) chronic [place] [facility] 2024 1:09pm HTN (hypertension) chronic October 12, 2024 1:09pm Sick sinus syndrome chronic October 12, 2024 1:09pm Pneumonia acute February 02 11:12pm [facility] Work Phone: 1([phone]) 610-691511-20-2023 Procedure [facility] 02-13-2023 Consult note Author Haile Bautista [facility] February 13, 2023 2:50pm Note Date/Time February 13, 2023 2:5 0pm [facility] Medical Records Department [address] [place], [place] [address] [address] Counseling Note - Pharmacy 02/13/23 1449 MR#: [id number] Acct: [id number] Name: RICHARD ROY Rep #:[id number] : 1945 77 From: Haile Bautista PCP: Dr. Luis Caldera MD Status :ADM IN Y Location: MS3 DX085-1 Pharmacy SD Med Reconciliation Pharmacy Service has performed discharge [...] Signature (if applicable): Date CC: ~ Signed [facility] Work Phone: 1(253) 558-434708-02-2023 Discharge summary Author Gabriel [facility] February 13, 2023 2:24pm Note Date/Time February 13, 2023 2:1 5pm [facility] Medical Records Department [address] [place] [address] Transfer to [facility] MR#: [id number] Acct: [id number] Name: RICHARD ROY Rep #:[id number] : 1945 77 From: Gabriel Giraldo DO PCP: Dr. Luis Caldera MD Status :ADM IN Certification of patient admission REQUIRED AT TIME OF ADMISSION. I CERTIFY THAT [facility]OSP[facility] SERVICES ARE REQUIRED TO BE GIVEN ON AN IN-PATIENT BASIS BECAUSE OF THE ABOVE NAMED PATIENT'S NEED FOR CORRECTION CARE ON A CONTINUING BASIS FOR THE CONDITION(S) FOR WHICH HE/SHE WAS RECEIVING IN-PATIENT HOSPITAL SERVICES PRIOR TO HIS/HER TRANSFER TO THE [facility]. 02/13/23 1424<Electronically signed by Gabriel Giraldo DO> [...] Instruction: NOTIFY Protocol Text: Custom Sliding Scale Rx Instructions: [...] in before D/C Order can be placed): Retirement Facility 02/13/23 1424 <Electronically signed by Gabriel Giarldo DO> Cosigner Signature (if applicable): CC: Dr. Luis Caldera MD; Dr. Smith Leija MD ~ [facility] Work Phone: 1(136) 810-402208-01-2023 Progress note Author [facility] February 12, 2023 4:48pm Note Date/Time February 12, 2023 4:4 8pm [facility] Medical Records Department [address] [place] [address] Progress Note - Hospitalist 02/12/23 1639 MR#: [id number] Acct: [id number] Name: RICHARD ROY Rep #:[id number] : 1945 77 From: Gabriel Giraldo DO PCP: Dr. Luis Caldera MD Status :ADM IN Location: [facility] OG549-4 Reason for Visit Reason for Visit: Diagnoses [...] 76.5 H, Lymph % (Auto) 8.1 L, [place] % (Auto) 12.5 H, Eos % (Auto) [...] 35 minutes Charges/Coding Visit Charges Inpatient E&M: 43847 Subs Hosp L2 02/12/23 8140 <Electronically signed by Gabriel Giraldo DO> Cosigner Signature (if applicable): CC: ~ Signed [facility] Work Phone: 1(194) 921-369408-01-2023 Consult note [facility] February 12, 2023 2:16pm Note Date/Time February 12, 2023 2:1 6pm [facility] Medical Records Department [address] [place] [address] Consultation - Infectious Dx 02/12/23 1412 MR#: [id number] Acct: [id number] Name: RICHARD ROY Rep #:[id number] : 1945 77 From: Smith huang MD PCP: Dr. Luis Caldera MD Status :ADM IN Location: [facility] UT564-7 Assessment & Plan Assessment/Plan (1) Bacteremia: PLAN: [...] performed and neg except as noted above. [facility] Medical History AAA (abdominal aortic aneurysm) Amputation [...] Hx of abdominal surgery Social History housing: assisted current occupational status: retired Smoking Status: Never [...] 76.5 H, Lymph % (Auto) 8.1 L, [place] % (Auto) 12.5 H, Eos % (Auto) 0.8, Baso % (Auto) 0.1, Absolute Neuts(auto) 5.7, Absolute Lymphs (auto) 0.61 L, Nucleated RBC % 0, PT 19.3 H, INR 1.6 Rhythm Strip Rhythm Strip: paced Rate: 95 Ectopy: None 02/12/23 1416 <Electronically signed by Smith Leija MD> Cosigner Signature (if applicable): CC: Dr. Luis Caldera MD; Dr. Smith Leija MD~ Signed [facility] Work Phone: 1([phone]) 603-580208-01-2023 Discharge summary Author Dandy Sauer [facility] February 12, 2023 2:03am Note Date/Time February 11, 2023 5:05 pm [facility] Medical Records Department [address] [place] [address] Emergency Department Summary 02/11/23 MR#: [id number] Acct: [id number] Name: RICHARD ROY Rep #:[id number] : 1945 77 From: Dandy Sauer MD PCP: Dr. Luis Caldera MD Status :ADM [facility] History of Present Illness Chief Complaint: [...] mostly the lethargy is the issue acutely. [facility] Medical History (Updated 02/11/23 @ 19:31 by [...] Hx of abdominal surgery Social History housing: assisted current occupational status: retired Smoking Status: Never [...] infection), Bacteremia Disposition Disposition: Acute [facility] Discharge Date/Time: 02/11/23 19:06 What to do if you have Problems For any increased pain, shortness of breath, bleeding, nausea or vomiting, chestpain, or any unexpected problems, contact your Primary Care Provider. Call [facility] ([phone]) or report to the closest Emergency Room. Call 911 if necessary. 02/12/23 0203 <Electronically signed by Dandy Sauer MD> Cosigner Signature (if applicable): CC: Dr. Luis Cadlera MD ~ Signed [facility] Work Phone: [phone]) [phone] History and physical note Author Jesus Burnham [facility] February 11, 2023 7:38pm Note Date/Time February 11, 2023 7:39 pm [facility] Medical Records Department [address] [place] [address] History & Physical Exam 02/11/231928 MR#: [id number] Acct: [id number] Name: RICHARD ROY Rep #:[id number] : 1945 77 From: Jesus Burnham MD PCP: Dr. Luis Caldera MD Status :ADM IN Location: [facility] AP733-0 HPI - General General Date of Admission: [...] tract infection and sent back to the assisted facility, however, today the patient has become more obtunded and sleeping excessively. Lactic acid elevation is noted and patient is on pacemaker. He denies any chest pain, shortness of breath and/or fevers orchills however is not a great historian at present time. Patient's is present at bedside and apparently the son is the DURABLE POWER OF FORESTRY FARM LABORER for healthcare and has orders signed for DNR CCA with no intubation. He will be admitted to the general medical floor placed on Rocephin, consult for infectiousdisease due to new implanted pacemaker. [facility] Medical History Amputation of right great toe [...] Hx of abdominal surgery Social History housing: assisted current occupational status: retired Smoking Status: Never [...] on Coumadin Charges/Coding Visit Charges Inpatient E&M: 38701 Init Hosp L2 02/11/231937 <Electronically signed by Jesus Burnham MD> Cosigner Signature (if applicable): CC: Dr. Luis Caldera MD; Dr. Jesus Burnham MD~ Signed [facility] Work Phone: 1(155) [phone] Miscellaneous Notes* Telephone Encounter - Tania Heller LPN - 01/28/2023 2:22 PM EDT Miya with [facility] calls to report pt was admitted to their facility over the weekend. Miya is requesting immunization record be faxed to: [phone]. Immunization record faxed as requested. Tania Heller LPN [facility] Discharge summary Author Ryan Tinoco [facility] January 26, 2023 12:56pm Note Date/Time January 26, 2023 12:4 6pm [facility] Medical Records Department [address] [place] [address] Discharge Summary 01/26/23 1157 MR#: [id number] Acct: [id number] Name: RICHARD ROY Rep #:[id number] : 1945 77 From: Ryan Delgado PCP: Dr. Luis Caldera MD Status :ADM IN Location: [place] [address] Providers Date of Admission: 01/21/23 Date of Discharge: 01/26/23 Primary Care Physician: Dr. Luis Caldera MD Consultations 01/21/23 11:52 Consult: Gastroenterology Routine Consulting Provider: [facility] Reason for Consult: Upper GI BLeed [...] is a 77-year-old gentleman being admitted from [facility] for multiple episodes of syncope and [...] the . His medical care is under [facility]. 01/22: Hemoglobin dropped to 8.9. Patient [...] there was 2 dropped heartbeat in EKG. rn appeals shows heart rate slowed down to 48 to 60/min. EKG in the morning about 6 AM today shows sinus rhythm with second- degree Mobitz type II block, RBBB, LAFB bifascicular block. Patient has history of bifascicular block. I talked to the patient's and informed her about the update. Patient has history of ascending aortic aneurysmand had that repaired along with aortic valve in [facility]. His resource program teacher is Dr. Huston in [facility]. I think this is most probably due to start of the octreotide drip as patient was in sinus normal rhythm at time ofadmission. Octreotide discontinued. Border Patrol Officer consulted. 2D echo ordered. 01/23: Echo states EF 55 to 60%, normal LV systolic function. Trivial MR. Mild diffuse aortic valve calcification. Normal left atrium. Plan: Border Patrol Officer will talk to Dr. Chandra regarding assessment for pacemaker 01/24: Patient has hypernatremia and hyperchloremia. IV fluid D5W started. Patient is still has AV block, P waves but rhythm is irregular. Twelve-lead EKGordered. Discussed with the resource program teacher. Dr. Ling will talk to Dr. Chandra. 01/25: For now plan is to monitor. No plan for pacemaker as per the resource program teacher. rn appeals shows irregular heartbeat , Mobitz type II. [...] or advanced directive. His is power of trademark attorney for health. After discussion of benefits/risks [...] Heart rate in 50s.. Discussed with the resource program teacher. No chest pain or tightness. Physical exam [...] 78.4 H, Lymph % (Auto) 8.1 L, [place] % (Auto) 9.6, Eos % (Auto) 1.6, [...] in before D/C Order can be placed): Retirement Facility Charges/Coding Visit Charges Inpatient E&M: 82262 Disch Hosp >30min 01/26/23 1256 <Electronically signed by Ryan Tinoco MD> Cosigner Signature (if applicable): CC: Dr. Luis Caldera MD; Dr. Ryan Tinoco MD~ Signed [facility] Work Phone: 1(516) 327-200107-15-2023 Discharge summary Author Ryan Tinoco [facility] January 26, 2023 11:57am Note Date/Time January 26, 2023 7:59 am [facility] Medical Records Department [facility] [address] Transfer to [facility] MR#: [id number] Acct: [id number] Name: RICHARD ROY Rep #:[id number] : [...] PRIOR TO HIS/HER TRANSFER TO THE F. 01/26/23 1157<Electronically signed by Ryan Tinoco MD> [...] is a 77-year-old gentleman being admitted from [facility] for multiple episodes of syncope and [...] the . His medical care is under [facility]. 01/22: Hemoglobin dropped to 8.9. Patient [...] there was 2 dropped heartbeat in EKG. rn appeals shows heart rate slowed down to 48 to 60/min. EKG in the morning about 6 AM today shows sinus rhythm with second- degree Mobitz type II block, RBBB, LAFB bifascicular block. Patient has history of bifascicular block. I talked to the patient's and informed her about the update. Patient has history of ascending aortic aneurysmand had that repaired along with aortic valve in [facility]. His resource program teacher is Dr. Huston in [facility]. I think this is most probably due to start of the octreotide drip as patient was in sinus normal rhythm at time ofadmission. Octreotide discontinued. Border Patrol Officer consulted. 2D echo ordered. 01/23: Echo states EF 55 to 60%, normal LV systolic function. Trivial MR. Mild diffuse aortic valve calcification. Normal left atrium. Plan: Border Patrol Officer will talk to Dr. Chandra regarding assessment for pacemaker 01/24: Patient has hypernatremia and hyperchloremia. IV fluid D5W started. Patient is still has AV block, P waves but rhythm is irregular. Twelve-lead EKGordered. Discussed with the resource program teacher. Dr. Ling will talk to Dr. Chandra. 01/25: For now plan is to monitor. No plan for pacemaker as per the resource program teacher. rn appeals shows irregular heartbeat , Mobitz type II. [...] or advanced directive. His is power of trademark attorney for health. After discussion of benefits/risks [...] 100 unit/mL insulin pen See Protocol subcut [facility] Protocol: 6. Sliding Scale Insulin Custom Condition: [...] in before D/C Order can be placed): [facility] Facility (6) Anemia Qualifiers: Anemia type: iron deficiency Iron deficiency anemia type: other iron deficiency Qualified Code(s): D50.8 - Other iron deficiency anemias 01/26/23 1157 <Electronically signed by Ryan Tinoco MD> Cosigner Signature (if applicable): CC: Dr. Luis Caldera MD; Dr. Lizzeth Riggs MD ~ [facility] Work Phone: 1(146) 593-835807-14-2023 Progress note Author [facility] January 25, 2023 4:08pm Note Date/Time January 25, 2023 1:09 pm [facility] Medical Records Department [address] [place] [address] Progress Note - Cardiology 01/25/23 1308 MR#: [id number] Acct: [id number] Name: RICHARD ROY Rep #:[id number] : 1945 77 From: Rebecca LOZA PA PCP: Dr. Luis Caldera MD Status :ADM IN Location: [place] [id number] Documented by User: Rebecca LOZA, DENIA 01/25/23 14:14 Subjective Subjective Patient is still [...] Albumin (DAVID) 2.5 L, Albumin/Globulin (DAVID) 1.4, Caaam-2-Ydjannkbu DAVID 0.2, Rsafd-0-Sgonofscc DAVID 0.6, Beta-Globulins (DAVID) 0.7, Gamma Globulins [...] 83.4 H, Lymph % (Auto) 5.9 L, [place] % (Auto) 7.8, Eos % (Auto) 1.0, [...] 83.4 H, Lymph % (Auto) 5.9 L, [place] % (Auto) 7.8, Eos % (Auto) 1.0, [...] stable hemodynamically. Charges/Coding Visit Charges Inpatient E&M: 15024 Subs Hosp L2 Documented by User: Dr. [...] notes and documentation Patient to follow-up as resource program teacher Dr. Chandra with the results of the event monitor. To evaluate for permanent pacemaker implant. 01/25/23 1414 <Electronically signed by Rebecca LOZA> Cosigner Signature (if applicable): 01/25/23 1608 <Electronically signed by Lizzeth Riggs MD> CC: ~ Signed [facility] Work Phone: 1(931) 178-957407-14-2023 Progress note Author Ryan Tinoco [facility] January 25, 2023 2:08pm Note Date/Time January 25, 2023 9:30 am [facility] Medical Records Department [address] [place] [address] Progress Note - Hospitalist 01/25/23 0928 MR#: [id number] Acct: [id number] Name: RICHARD ROY Rep #:[id number] : 1945 77 From: Ryan Delgado PCP: Dr. Luis Caldera MD Status :ADM IN Location: [place] [address] Reason for Visit Reason for Visit: Diagnoses [...] 83.4 H, Lymph % (Auto) 5.9 L, [place] % (Auto) 7.8, Eos % (Auto) 1.0, [...] Heart rate in 50s.. Discussed with the resource program teacher. No chest pain or tightness. Physical exam [...] is a 77-year-old gentleman being admitted from [facility] for multiple episodes of syncope and [...] the . His medical care is under [facility]. 01/22: Hemoglobin dropped to 8.9. Patient [...] Albumin (DAVID) 2.5 L, Albumin/Globulin (DAVID) 1.4, Nsgli-8-Uklobplnh DAVID 0.2, Uhbkv-9-Vynxeolvk DAVID 0.6, Beta-Globulins (DAVID) 0.7, Gamma Globulins [...] 83.4 H, Lymph % (Auto) 5.9 L, [place] % (Auto) 7.8, Eos % (Auto) 1.0, [...] there was 2 dropped heartbeat in EKG. rn appeals shows heart rate slowed down to 48 to 60/min. EKG in the morning about 6 AM today shows sinus rhythm with second- degree Mobitz type II block, RBBB, LAFB bifascicular block. Patient has history of bifascicular block. I talked to the patient's and informed her about the update. Patient has history of ascending aortic aneurysmand had that repaired along with aortic valve in [facility]. His resource program teacher is Dr. Huston in [facility]. I think this is most probably due to start of the octreotide drip as patient was in sinus normal rhythm at time ofadmission. Octreotide discontinued. Border Patrol Officer consulted. 2D echo ordered. 01/23: Echo states EF 55 to 60%, normal LV systolic function. Trivial MR. Mild diffuse aortic valve calcification. Normal left atrium. Plan: Border Patrol Officer will talk to Dr. Chandra regarding assessment for pacemaker 01/24: Patient has hypernatremia and hyperchloremia. IV fluid D5W started. Patient is still has AV block, P waves but rhythm is irregular. Twelve-lead EKGordered. Discussed with the resource program teacher. Dr. Ling will talk to Dr. Chnadra. 01/25: For now plan is to monitor. No plan for pacemaker as per the resource program teacher. rn appeals shows irregular heartbeat , Mobitz type II. [...] or advanced directive. His is power of trademark attorney for health. After discussion of benefits/risks [...] systolic function Charges/Coding Visit Charges Inpatient E&M: 48024 Subs Hosp L2 01/25/23 1408 <Electronically signed by Ryan Tinoco MD> Cosigner Signature (if applicable): CC: ~ Signed [facility] Work Phone: 1(593) 348-731907-13-2023 Progress note Author [facility] January 24, 2023 8:23pm Note Date/Time January 24, 2023 8:23 pm [facility] Medical Records Department [address] [place] [address] Progress Note - Hospitalist 01/24/232021 MR#: [id number] Acct: [id number] Name: RICHARD ROY Rep #:[id number] : 1945 77 From: Karen Aly MD PCP: Dr. 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 He is asymptomatic. Cardiology following and made aware also by RN that it is recurrent. 01/24/232022 <Electronically signed by Karen Aly MD> Cosigner Signature (if applicable): CC: ~ Signed [facility] Work Phone: 1(114) 466-218107-13-2023 Progress note Author Liubreonna Hackett [facility] January 24, 2023 5:07pm Note Date/Time January 24, 2023 5:07 pm [facility] Medical Records Department [address] [place] [address] Progress Note - GI 01/24/231702 MR#: [id number] Acct: [id number] Name: KIRILL DAVID Rep #:[id number] : 1945 77 From: Liu Hackett DO PCP: Dr. Luis Caldera MD Status :ADM IN Location: [place] [address] Subjective Subjective Patient laying in bed with [...] 82.8 H, Lymph % (Auto) 5.3 L, [place] % (Auto) 8.9, Eos % (Auto) 1.3, [...] ensure healing. Charges/Coding Visit Charges Inpatient E&M: 77585 Subs Hosp L3 01/24/23 1707 <Electronically signed by Liu Friend DO> Cosigner Signature (if applicable): CC: ~ Signed [facility] Work Phone: 1(159) 623-705707-13-2023 Progress note Author Lizzeth Riggs [facility] January 24, 2023 4:25pm Note Date/Time January 24, 2023 1:41 pm [facility] Medical Records Department [address] [place] [address] Progress Note - Cardiology 01/24/23 1338 MR#: [id number] Acct: [id number] Name: RICHARD ROY Rep #:[id number] : 1945 77 From: Rebecca LOZA PCP: Dr. Luis Caldera MD Status :ADM IN Location: [place] [id number] Documented by User: DENIA Wilkinson 01/24/23 13:45 [...] 82.8 H, Lymph % (Auto) 5.3 L, [place] % (Auto) 8.9, Eos % (Auto) 1.3, [...] 82.8 H, Lymph % (Auto) 5.3 L, [place] % (Auto) 8.9, Eos % (Auto) 1.3, [...] by GI. Charges/Coding Visit Charges Inpatient E&M: 12689 Subs Hosp L2 Documented by User: Dr. [...] by Lizzeth Riggs MD> CC: ~ Signed [facility] Work Phone: 1(679) 752-712207-13-2023 Miscellaneous Notes* Telephone Encounter - Tamika Grijalva [...] Patient's calling to say patient was at [facility] for rehabilitation after his hospitalization @ [facility] for confusion on 01/04. He was sent by squad to [facility] from [facility] on 01/21 due to episode of decreased responsiveness and black tarry stool. He had an EGD yesterday and wifesays they found "multiple ulcers at head of small intestine" that were cauterized by Dr. Hackett. His says patient appears to be very depressed. He is not eating and is not willing to get out of bed at the hospital. She is asking if there is anything that PCP can do? She says he will need to go to another nursing facility post hospital stay but it won't be [facility]. Vannessa Jorge, RN [facility]23 Progress note Author Ryan Tinoco [facility] January 24, 2023 1:11pm Note Date/Time January 24, 2023 8:05 am [facility] Medical Records Department [address] [place] [address] Progress Note - Hospitalist 01/24/23 0758 MR#: [id number] Acct: [id number] Name: RICHARD ROY Rep #:[id number] : [...] 06:45: Diff Path Review Reviewed 01/22/23 11:32: KESLEY-1 Antibody <0.2, SS-A/Ro IgG Antibody < 0.2, SS-B/La IgG Antibody < 0.2, Sm (Martinez) Antibody <0.2, SLASHER Antibody <0.2, Scl-70 Scleroderma Ab <0.2, Double [...] 82.8 H, Lymph % (Auto) 5.3 L, [place] % (Auto) 8.9, Eos % (Auto) 1.3, [...] waves. Twelve-lead EKG ordered.. Discussed with the resource program teacher. No chest pain or tightness. General: Awake [...] is a 77-year-old gentleman being admitted from [facility] for multiple episodes of syncope and [...] past when he had EGD in early 1999's. Had last colonoscopy less than a year was normal as per the . His medical care is under [facility]. 01/22: Hemoglobin dropped to 8.9. Patient [...] there was 2 dropped heartbeat in EKG. rn appeals shows heart rate slowed down to 48 to 60/min. EKG in the morning about 6 AM today shows sinus rhythm with second- degree Mobitz type II block, RBBB, LAFB bifascicular block. Patient has history of bifascicular block. I talked to the patient's and informed her about the update. Patient has history of ascending aortic aneurysmand had that repaired along with aortic valve in [facility]. His resource program teacher is Dr. Huston in [facility]. I think this is most probably due to start of the octreotide drip as patient was in sinus normal rhythm at time ofadmission. Octreotide discontinued. Border Patrol Officer consulted. 2D echo ordered. 01/23: Echo states EF 55 to 60%, normal LV systolic function. Trivial MR. Mild diffuse aortic valve calcification. Normal left atrium. Plan: Border Patrol Officer will talk to Dr. Chandra regarding assessment for pacemaker 01/24: Patient has hypernatremia and hyperchloremia. IV fluid D5W started. Patient is still has AV block, P waves but rhythm is irregular. Twelve-lead EKGordered. Discussed with the resource program teacher. Dr. Ling will talk to Dr. Chandra. [...] or advanced directive. His is power of trademark attorney for health. After discussion of benefits/risks [...] systolic function Charges/Coding Visit Charges Inpatient E&M: 57956 Subs Hosp L3 01/24/23 1311 <Electronically signed by Ryan Tinoco MD> Cosigner Signature (if applicable): CC: ~ Signed [facility] Work Phone: 1(750) 202-561007-12-2023 Progress note Author Lizzeth Riggs [facility] January 23, 2023 2:45pm Note Date/Time January 23, 2023 10:0 0am [facility] Medical Records Department [address] [place] [address] Progress Note - Cardiology 01/23/23 0946 MR#: [id number] Acct: [id number] Name: RICHARD ROY Rep #:[id number] : [...] 85.3 H, Lymph % (Auto) 4.8 L, [place] % (Auto) 7.1, Eos % (Auto) 0.7, [...] 85.3 H, Lymph % (Auto) 4.8 L, [place] % (Auto) 7.1, Eos % (Auto) 0.7, [...] appears stable. Charges/Coding Visit Charges Inpatient E&M: 28705 Subs Hosp L2 01/23/23 1000 <Electronically signed by Rebecca LOZA> Cosigner Signature (if applicable): 01/23/23 1445 <Electronically signed by Lizzeth Riggs MD> CC: ~ Signed [facility] Work Phone: 1([phone]) 651-405107-12-2023 Procedure [facility] 01-23-2023 Procedure [facility]07-12-2023 Progress note Author Ryan Tinoco [facility] January 23, 2023 9:01am Note Date/Time January 23, 2023 9:01 am [facility] Medical Records Department [address] [place] [address] Progress Note - Hospitalist 01/23/23 0852 MR#: [id number] Acct: [id number] Name: RICHARD ROY Rep #:[id number] : 1945 77 From: Ryan Delgado PCP: Dr. Luis Caldera MD Status :[facility] Reason for Visit Reason for Visit: [...] 85.3 H, Lymph % (Auto) 4.8 L, [place] % (Auto) 7.1, Eos % (Auto) 0.7, [...] every third beat dropped. Discussed with the resource program teacher. No chest pain or tightness. General: Oriented [...] is a 77-year-old gentleman being admitted from [facility] for multiple episodes of syncope and [...] the . His medical care is under [facility]. 01/22: Hemoglobin dropped to 8.9. Patient [...] there was 2 dropped heartbeat in EKG. rn appeals shows heart rate slowed down to 48 to 60/min. EKG in the morning about 6 AM today shows sinus rhythm with second- degree Mobitz type II block, RBBB, LAFB bifascicular block. Patient has history of bifascicular block. I talked to the patient's and informed her about the update. Patient has history of ascending aortic aneurysmand had that repaired along with aortic valve in [facility]. His resource program teacher is Dr. Huston in [facility]. I think this is most probably due to start of the octreotide drip as patient was in sinus normal rhythm at time ofadmission. Octreotide discontinued. Border Patrol Officer consulted. 2D echo ordered. 01/23: Echo states EF 55 to 60%, normal LV systolic function. Trivial MR. Mild diffuse aortic valve calcification. Normal left atrium. Plan: Border Patrol Officer will talk to Dr. Chandra regarding assessment [...] or advanced directive. His is power of trademark attorney for health. After discussion of benefits/risks [...] organ systems), coordination with cardiology and GI marketing regional consultant, review of labs and imaging is 50 minutes. Visit Charges Inpatient E&M: 57833 Subs Hosp L3 01/23/23 0901 <Electronically signed by Ryan Tinoco MD> Cosigner Signature (if applicable): CC: ~ Signed [facility] Work Phone: 1(925) 230-223907-11-2023 Consult note Author Rebecca Leon [facility] January 22, 2023 4:28pm Note Date/Time January 22, 2023 4:07 pm [facility] Medical Records Department [address] [place] [address] Consultation - Cardiology 01/22/23 1605 MR#: [id number] Acct: [id number] Name: RICHARD ROY Rep #:[id number] : [...] room yesterday for syncope. The nurses at [facility] had noted that he [...] last received his metoprolol while in the assisted on 01/20/2023. I did speak with , [...] were adjusted at his last hospital stay. [facility] Medical History (Updated 01/22/23 @ 16:25 by [...] Hx of abdominal surgery Social History housing: assisted current occupational status: retired Smoking Status: Never [...] Charges/Coding Visit Charges Office Visits / Consults: 99345 IP Consult L3 Objective Data Vital Signs: [...] RDW Coeff of Nathaniel 15.5 H, Plt [id number], MPV 10.1, Immature Gran % (Auto) 3.300 H, Neut % (Auto) 81.9 H, Lymph % (Auto) 5.9 L, [place] % (Auto) 8.0, Eos % (Auto) 0.7, [...] 81.9 H, Lymph % (Auto) 5.9 L, [place] % (Auto) 8.0, Eos % (Auto) 0.7,Baso [...] Caldera MD; Dr. Lizzeth Riggs MD~ Signed [facility] Work Phone: 1(808) 859-818507-11-2023 Progress note Author Ryan Tinoco [facility] January 22, 2023 8:38am Note Date/Time January 22, 2023 8:22 am [facility] Medical Records Department [address] [place] [address] Progress Note - Hospitalist 01/22/23 0819 MR#: [id number] Acct: [id number] Name: RICHARD ROY Rep #:[id number] : [...] 87.8 H, Lymph % (Auto) 7.5 L, [place] % (Auto) 2.4, Eos % (Auto) 0.0, [...] Clarity Clear, Urine pH 5.0, Ur Specific [place] 1.020, Urine Protein 15 H, Urine Glucose [...] RDW Coeff of Nathaniel 15.5 H, Plt [id number], MPV 10.1, Immature Gran % (Auto) 3.300 H, Neut % (Auto) 81.9 H, Lymph % (Auto) 5.9 L, [place] % (Auto) 8.0, Eos % (Auto) 0.7, [...] havingirregular heartbeat after midnight, initially A-fib on lard mixer. After that about 5 AM patient started [...] is a 77-year-old gentleman being admitted from [facility] for multiple episodes of syncope and [...] the . His medical care is under [facility]. 01/22: Hemoglobin dropped to 8.9. Patient [...] there was 2 dropped heartbeat in EKG. rn appeals shows heart rate slowed down to 48 to 60/min. EKG in the morning about 6 AM today shows sinus rhythm with second- degree Mobitz type II block, RBBB, LAFB bifascicular block. Patient has history of bifascicular block. I talked to the patient's and informed her about the update. Patient has history of ascending aortic aneurysmand had that repaired along with aortic valve in [facility]. His resource program teacher is Dr. Huston in [facility]. I think this is most probably due to start of the octreotide drip as patient was in sinus normal rhythm at time ofadmission. Octreotide discontinued. Border Patrol Officer consulted. 2D echo ordered. 3. Essential hypertension [...] or advanced directive. His is power of trademark attorney for health. After discussion of benefits/risks procedures involved with full code, DNR CC arrest and DNR CC, the patient and his opted for full code. Patient does want artificial life support including intubation, tube feed, ventilator and/chest compression, central venous catheter, vasopressor and DC shock if needed Charges/Coding Visit Charges Inpatient E&M: 46248 Subs Hosp L3 01/22/23 0838 <Electronically signed by Ryan Tinoco MD> Cosigner Signature (if applicable): CC: ~ Signed [facility] Work Phone: 1(120) 316-589807-10-2023 Consult note Author Liu Friend [facility] January 21, 2023 7:07pm Note Date/Time January 21, 2023 7:04 pm [facility] Medical Records Department [address] [place] [address] Consultation - GI 01/21/23 190 MR#: [id number] Acct: [id number] Name: RICHARD ROY Rep #:[id number] : 1945 77 From: Liu Hackett DO PCP: Dr. Luis Caldera MD Status :ADM IN Location: ICU CVICU20 2-1 HPI Consult Data Date of Consult: 01/21/23 HPI Narrative Reason for Consultation: GI bleed HPI Narrative: RICHARD ROY, is a 77 M who presents with melena goals from assisted. He is on warfarin for history of DVT and atrial fibrillation. [facility]. He was admitted between 01/05 to 01/08/23 for confusion and generalized weakness, stroke was ruled out and was sent to assisted there. Started getting confused within the past [...] down to 10.9 from 13.1 on discharge. [facility] Medical History Amputation of right great toe [...] Hx of abdominal surgery Social History housing: assisted current occupational status: retired Smoking Status: Never [...] 87.8 H, Lymph % (Auto) 7.5 L, [place] % (Auto) 2.4, Eos % (Auto) 0.0, [...] Clarity Clear, Urine pH 5.0, Ur Specific [place] 1.020, Urine Protein 15 H, Urine Glucose [...] 6 hours. Charges/Coding Visit Charges Inpatient E&M: 38593 Init Hosp L3 01/21/231906 <Electronically signed by Liu Friend DO> Cosigner Signature (if applicable): CC: Dr. Luis Caldera MD~ Signed [facility] Work Phone: 1(364) 520-147607-10-2023 Discharge summary Author Dandy Sauer [facility] January 21, 2023 5:25pm Note Date/Time January 21, 2023 9:06 am [facility] Medical Records Department [address] [place] [address] Emergency Department Summary 01/21/23 MR#: [id number] Acct: [id number] Name: RICHARD ROY Rep #:[id number] : 1945 77 From: Dandy Sauer MD PCP: Dr. Luis Caldera MD Status :ADM IN Location: ICU CVICU20 2-1 HPI History of Present Illness Chief Complaint: Syncope Informant: spouse/S.O., EMS and SNF Narrative Narrative: Patient sent from [facility] where he has been for several [...] pain, but he denies it right now. [facility] Medical History Amputation of right [...] 09:[address] Dandy Sauer MD) housing: assisted current occupational status: retired Smoking Status: Never [...] place including the state. Downgoing toes bilaterally [place] Coma Scale: document GCS findings To Voice [...] likely an upper GI bleed. Discussed with GI Dr. Hackett, hospitalist, and I discussed with the [...] 87.8 H Lymph % (Auto) 7.5 L [place] % (Auto) 2.4 Eos % (Auto) 0.0 [...] Management Discussion w/another healthcare provider: Hospitalist and Nurse First Aid (GI) Critical Care Time Critical Care Time: Yes Critical care time (excluding procedures): 30-74 minutes (33 min), Including time spent:, Discussing w/Patient &/or Family/Mess Cook, Discussing w/Consultants, Arranging Admission or Transfer and Performing Direct Patient Care at Bedside Discharge Plan Dx/Rx/DC Orders Clinical Impression: Acute encephalopathy, Syncope, Supratherapeutic INR, ABLA (acute blood loss anemia), Upper gastrointestinal bleeding, Warfarin-induced coagulopathy Disposition Disposition: [facility] Capacity Capacity Assessment Tool Can the patient [...] problems, contact your Primary Care Provider. Call [facility] ([phone]) or report to the closest Emergency Room. Call 911 if necessary. 01/21/23 8571 <Electronically signed by Dandy Sauer MD> Cosigner Signature (if applicable): CC: Dr. Luis Caldera MD ~ Signed [facility] Work Phone: 1(285) [phone] History and physical note Author Ryan Tinoco [facility] January 21, 2023 12:24pm Note Date/Time January 21, 2023 11:5 8am [facility] Medical Records Department [address] [place] [address] H&P Exam - Hospitalist 01/21/23 1156 MR#: [id number] Acct: [id number] Name: RICHARD ROY Rep #:[id number] : [...] was brought from [facility] to assisted for syncopal episodes and black tarry stool. Prior to that he was admitted between 01/05 to 01/08/23 for confusion and generalized weakness, stroke was ruledout and was sent to assisted there. Patient is not a good historian. As per the nursing report, patient had multiple short syncopal episodes in the morning after he had a large black tarry stool. Patient had been having dark stool for last couple days in assisted. Patient does not remember himself from dementia/depression. [...] further admitted in in the context of [facility] Medical History Amputation of right great toe [...] Hx of abdominal surgery Social History housing: assisted current occupational status: retired Smoking Status: Never [...] 87.8 H, Lymph % (Auto) 7.5 L, [place] % (Auto) 2.4, Eos % (Auto) 0.0, [...] Clarity Clear, Urine pH 5.0, Ur Specific [place] 1.020, Urine Protein 15 H, Urine Glucose [...] is a 77-year-old gentleman being admitted from [facility] for multiple episodes of syncope and [...] past when he had EGD in early 1999'. Had last colonoscopy less than a year was normal as per the . His medical care is under [facility]. 2 Syncopal episode most likely due [...] or advanced directive. His is power of trademark attorney for health. After discussion of benefits/risks procedures involved with full code, DNR CC arrest and DNR CC, the patient and his opted for full code. Patient does want artificial life support including intubation, tube feed, ventilator and/chest compression, central venous catheter, vasopressor and DC shock if needed Total time spent in [id number] encounter in discussion of advanced directive 17 [...] 87.8 H, Lymph % (Auto) 7.5 L, Jefferson Davis % (Auto) 2.4, Eos % (Auto) 0.0, [...] Clarity Clear, Urine pH 5.0, Ur Specific [place] 1.020, Urine Protein 15 H, Urine Glucose (UA) 100 H, Urine Ketones 15 H, Urine Occult Blood Negative, Urine Nitrite Negative, Urine Bilirubin 1 H, Urine Urobilinogen Normal, Ur Leukocyte Esterase Negative, Urine RBC 0 SEEN, Urine WBC 0-5 SEEN, Ur Squamous Epith Cells 0-5 SEEN, Urine Bacteria 0 SEEN, Urine Mucus 0 SEEN Charges/Coding Visit Charges Inpatient E&M: 58460 Init Hosp L3 Procedures Hospitalists Procedures: 82994 Advncd Care Plan 30 Min 01/21/23 1223 [...] MD; Dr. Ryan Tinoco MD ~* Signed [facility] Work Phone: 1(752) 754-252306-23-2023 Miscellaneous Notes* Telephone Encounter - Amada Cohn [...] again recommend ER evaluation. documented in this encounterPeoples Hospital06-23-2023 Miscellaneous Notes* Telephone Encounter - Tamika [...] appointment with PCP on 01/04. Vannessa Jorge, RN documented in this encounterPeoples Hospital06-22-2023 History of Present illness Narrative* Justina [...] PARTIALLY MET, improved 8 to 9 reps Bremer in home exercise program including cardiovascular exercise. [...] tasks in the home Functional Limitations: standing ("I cant really say any certain things.") Pain: Pain Pain Level: 0 Pain Location: [...] surface 40' with SC, step over x 6" obstacle, 2x 11: gait level surface 40' with SC, step around 2x6" obstacle, 2x Skilled Intervention: Skilled judgment used [...] 5 Justina Escoto PT documented in this encounterPeoples Hospital06-19-2023 History of Present illness Narrative* Justina [...] about 2.5 minutes before needed to sit, " stating his shoulders were tired" . Aspt became more fatigued, shuffling occured. [...] Treatment Time Minutes (timed/untimed): 42 Ira Ramos, ALISIA Escoto PT documented in this encounterPeoples Hospital06-15-2023 History of Present illness Narrative* Justina Escoot PT - 12/27/2022 11:02 AM EDT Episode [...] Treatment Time Minutes (timed/untimed): 40 Ira Ramos, MANAGER RESIDENTIAL Justina Escoto PT documented in this encounterPeoples Hospital06-12-2023 History of Present illness Narrative* Justina Escoto [...] by PCP, tells PT that pt. seems jessica confused and she has been taking notes [...] 40 Justina Escoto PT documented in this encounterPeoples Hospital06-05-2023 History of Present illness Narrative* Justina [...] 40 Justina Escoto PT documented in this encounterPeoples Hospital06-02-2023 History of Present illness Narrative* Justina Escoto, PT - 12/14/2022 2:37 PM EDT Episode [...] throughout, subjective taken 2: forward step ups 6" x1 UE support // bars 2x12 each [...] 40 Justina Escoto PT documented in this encounterPeoples Hospital05-31-2023 History of Present illness Narrative* Justina [...] fatigue. He demonstrated difficulty with stepping up 4" and stepping over 6" hurdles when leading with the LLE as [...] throughout, subjective taken 2: forward step ups 4" x1 UE support // bars 2x12 each [...] noted. Neuromuscular Re-Education: 1: stepping forward over 6x6" hurdles 20' 6x lead R and 6x lead L, cues to use cane 2: lateral stepping over single 6" gustavo 3x10, x1 UE at // bars. [...] 40 Justina Escoto PT documented in this encounterPeoples Hospital05-09-2023 Miscellaneous Notes* Telephone Encounter - GABI Link - 11/20/2022 9:[address] [facility] 11/19/22 Appointment scheduled 02/05/23 Please advise. Thank you. GABI Link * Telephone Encounter - Nola Velasco - 11/20/2022 8:58 AM EDT Patient is [...] to the pharmacy. Please call patient at: [phone]. Nola Velasco documented in this encounterPeoples Hospital05-08-2023 Miscellaneous Notes* Telephone Encounter - Tania [...] and result): 09/24/2022 2.5 documented in this encounterPeoples Hospital04-10-2023 History of Present illness Narrative* Zachary [...] Patient, Diabetic Foot Care documented in this encounterPeoples Hospital04-10-2023 Instructions* Patient Instructions* Zachary Obregon - [...] or sore from your shoes, do not "pop" it. Apply a bandage and wear a differentpair of shoes. Take Care of Your Toenails Cut toenails after bathing, when they are soft. Cut toenails straight across and smooth with a nail file. Avoid cutting into the corners of toes. Do not cut cuticles. If you have neuropathy (or decreased sensation in your feet) a chip washer should always cut your toenails. Be Careful [...] your shoes are too tight. Perform the "footwear test" described below. Footwear Test Use this simple [...] Go to your health care provider or chip washer to treat these conditions. documented in this encounterPeoples Hospital03-14-2023 Miscellaneous Notes* Telephone Encounter - Rebecca [...] Information or narrative: no documented in this encounterPeoples Hospital02-24-2023 Miscellaneous Notes* Telephone Encounter - Suzanne Connelly RN - 09/07/2022 1:11 PM EST Call to patient. Provided number to schedule- [phone]. Offered to transfer patient to schedulebut patient declined to schedule stating he could call later. PAOLA Potter, RN September 07, 2022 1:11 PM * Telephone Encounter - Jojo Kaur MD - 09/07/2022 11:39 AM EST Suzanne please let patient know how to proceed with driving evaluation I already put the order in computer documented in this encounterPeoples Hospital02-24-2023 History of Present illness Narrative* Jojo [...] evaluation of folllow up after hospitalization in [facility]. he was admitted because of [...] Since covid hit they went to [facility] and was staying in the house [...] delayed closure on 05/28/18. Dr. Obregon at [facility] COLONOSCOPY 10/10/2021 repeat in 3 [...] INSULIN PEN NEEDLE UF) 31 gauge x 5/16" 1 Each four times daily. With insulin B cmplx 4/vit D3/C/folic/zinc (VITAL-D RX ORAL) Take by mouth one time a week. blood sugar diagnostic (Integrated Corporate HealthTOUCH ULTRA TEST) test strip Test blood sugar(s) [...] 64 Resp 16 Ht 185.4 cm (6' 1") Wt 113.4 kg (250 lb) SpO2 99% [...] gait ,unsteady Cannot tandem Jojo Kaur M.D. [facility] [place] Department of Neurology Total time in minutes [...] lights on at night. documented in this encounterPeoples Hospital02-14-2023 Miscellaneous Notes* Telephone Encounter - Tamika [...] no Tania Heller LPN documented in this encounterPeoples Hospital02-02-2023 Miscellaneous Notes* Telephone Encounter - Grecia [...] notify patient. Grecia Bustillo documented in this encounterPeoples Hospital01-31-2023 Miscellaneous Notes* Telephone Encounter - Tamika [...] Information or narrative: no documented in this encounterPeoples Hospital01-26-2023 History of Present illness Narrative* Abdulaziz [...] 12 months ago. Going to schedule appointment [facility]. 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 Asymtpomatic still on medical management. Has completed his home PT/OT. Echo and stress test at [facility] were negative/normal. Has follow up with Dr. Huston on 12/03. questioning if they should be seen sooner. BP well controlled with current regimen <130/80. BPH: With use of flomax, patient is getting up once at night to urinate. Has weak stream, but denies straining, incomplete emptying, dysuria, hematuria, incontinence. Followed up with ENT in [place] for chronic frontal sinusitis on CT/MRI going [...] delayed closure on 05/28/18. Dr. Obregon at [facility] COLONOSCOPY 10/10/2021 repeat in 3 [...] INSULIN PEN NEEDLE UF) 31 gauge x 5/16" 1 Each four times daily. With insulin losartan (COZAAR) 50 mg tablet Take 1 tablet by mouth once daily. B cmplx 4/vit D3/C/folic/zinc (VITAL-D RX ORAL) Take by mouth one time a week. metoprolol succinate ER (TOPROL XL) 200 mg 24 hr tablet Take 1 tablet by mouth once daily. blood sugar diagnostic (My Top 10 ULTRA TEST) test strip Test blood sugar(s) [...] Abs Lymph 1.00 - 4.00 k/uL 1.81 Jefferson Davis% % 6.9 Abs Jefferson [place] <0.87 k/uL 0.86 Eosin% % 3.1 Abs [...] reigmen. Abdulaziz Caldera MD documented in this encounterPeoples Hospital01-23-2023 Miscellaneous Notes* Telephone Encounter - Tamika [...] pt. Mila Castro LPN documented in this encounterPeoples Hospital01-23-2023 History of Present illness Narrative* Zachary [...] or electronic medical record. documented in this encounterPeoples Hospital01-17-2023 Miscellaneous Notes* Telephone Encounter - Melba Karen - 07/31/2022 11:36 AM EST Spoke with [...] 2022. Rebecca Esteban LPN documented in this encounterPeoples Hospital01-13-2023 Miscellaneous Notes* Telephone Encounter - Meghana Burgess - 07/27/2022 9:55 AM EST 3G Multimedia message not read as of 07/27/2022. Called and spoke with patient. Appt rescheduled to 09/07/2022 at 11:00 AM Meghana Burgess * Telephone Encounter - Meghana Burgess - 07/05/2022 4:08 PM EST Due to change in provider's schedule, appt on 08/21/2022 needs rescheduled. Patient notified via 3G Multimedia message on 07/05/2022. Meghana Burgess documented in this encounterPeoples Hospital01-12-2023 Miscellaneous Notes* Telephone Encounter - Abdulaziz Caldera MD - 07/26/2022 3:09 PM EST Thanks. * Telephone Encounter - Ann Castillo RN - 07/26/2022 3:04 PM EST Darlyn, a nurse with [facility] calling to state she has discharged pt from correction today. Pt is doing really well. No call back needed. Thank you. documented in this encounterPeoples Hospital01-11-2023 Miscellaneous Notes* Telephone Encounter - Suzanne Lino RN - 07/25/2022 1:42 PM EST Last Office Visit: 07/12/2022 Future Office Visit: 08/09/2022 Requested Prescriptions Pending Prescriptions Disp Refills amLODIPine (NORVASC) 2.5 mg tablet 30 tablet 5 Sig: Take 1 tablet by mouth once daily. Date of Last Labs: 03/02/2022 documented in this encounterPeoples Hospital01-03-2023 Miscellaneous Notes* Telephone Encounter - Abdulaziz Caldera MD - 07/17/2022 12:58 PM EST Reviewed and agree. * Telephone Encounter - Halima Diaz RN - 07/17/2022 12:51 PM EST Maverick PT calling from [facility] to report plan of care for patient and PT will visit patient 2 times a week for 3 weeks. PT will work with patient on functional mobility training. Halima Diaz RN documented in this encounterPeoples Hospital01-03-2023 Miscellaneous Notes* Telephone Encounter - Abdulaziz Caldera MD - 07/17/2022 11:18 AM EST Reviewed. * Telephone Encounter - Eva Schmid LPN - 07/17/2022 11:12 AM EST Barbi from [facility] calling with OT plan of care, one time visit only, patient denies any further OT needs. No call back needed. documented in this encounterPeoples Hospital12-30-2022 Miscellaneous Notes* Telephone Encounter - Ewa Andino Ma - 07/13/2022 11:30 AM EST Left detailed message on confidential line Ewa Andino Ma * Telephone Encounter - Abdulaziz Caldera MD - 07/13/2022 11:01 AM EST agree * Telephone Encounter - Ann Castillo RN - 07/13/2022 10:00 AM EST Chiki, a nurse with [facility] calling with [facility] Plan of Care for patient: Patient will be seen 1 time per week for 4 weeks for BP monitoring. No call back needed if provider agreeable. Thank you. documented in this encounterPeoples Hospital12-29-2022 Miscellaneous Notes* Telephone Encounter - Ewa Andino Ma - 07/12/2022 10:53 AM EST Karly was notified Ewa Andino Ma * Telephone Encounter - Abdulaziz Caldera MD - 07/12/2022 10:47 AM EST Agree and will follow * Telephone Encounter - Marcella Alvarez RN - 07/12/2022 10:07 AM EST Karly with [facility] called and reports Pt was discharged yesterday and they received a referral for PT/OT/SN. They are going to do their start of care tomorrow, and she was asking if the provider would be willing to follow. documented in this encounterPeoples Hospital12-26-2022 Miscellaneous Notes* Telephone Encounter - Suzanne Lino RN - 07/09/2022 11:46 AM EST Last Office Visit: 04/16/2022 Future Office Visit: 09/17/2022 Requested Prescriptions Pending Prescriptions Disp Refills dulaglutide (TRULICITY) 1.5 mg/0.5 mL pen injector 12 Each 3 Sig: Inject 1.5 mg subcutaneously one time a week. Inject once per week. Discard Pen After Date of Last Labs: 03/02/2022 documented in this encounterPeoples Hospital12-12-2022 Miscellaneous Notes* Telephone Encounter - Tania [...] patient. Tania Heller LPN documented in this encounterPeoples Hospital11-02-2022 Miscellaneous Notes* Telephone Encounter - Mila [...] you. Mila Castro LPN documented in this encounterPeoples Hospital10-04-2022 History of Present illness Narrative* Jojo [...] evaluation of folllow up after hospitalization in [facility]. 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 Dr. Obregon at [facility] COLONOSCOPY 10/10/2021 repeat in 3 [...] INSULIN PEN NEEDLE UF) 31 gauge x 5/16" 1 Each four times daily. With insulin [...] week. Discard Pen After blood sugar diagnostic (Integrated Corporate HealthTOUCH ULTRA TEST) test strip Test blood sugar(s) [...] 72 Resp 18 Ht 185.4 cm (6' 1") Wt 114.3 kg (252 lb) SpO2 98% [...] gait ,unsteady Cannot tandem Jojo Kaur M.D. [facility] [place] Department of Neurology Total time in minutes [...] lights on at night. documented in this encounterPeoples Hospital10-04-2022 Miscellaneous Notes* Telephone Encounter - Abdulaziz Caldera MD - 04/17/2022 11:24 AM EDT Reviewed. * Telephone Encounter - MERYL Zamudio - 04/17/2022 11:03 AM EDT Behavioral Health Social Work Progress Note Patient identified for [facility] from: PCP Reason for referral: [facility] Behavioral Health Resources: Psychology - talk therapy [facility] encounter type: Telephone Encounter Attempts to Outreach: 1 attempt Referral made: Psychology - External Psychology-External referral type: Therapy Reason for external referral: Wait times at [facility] too long Final Disposition: Resources given Patient Discharged?: Yes Patient reported that caregiver was able to meet their needs today?: Yes SW placed a phone call to patient at the request of the PCP. Pt reported he is looking for talk therapy referrals at this time. SW provided the following referrals via phone: [facility] [address], [address], [facility] [address] *counseling [facility] [address] [phone] *counseling [facility] [address], [address] [place] [address] *counseling [facility] [address] [place] [address] FEDERICO Zamudio April 17, 2022 documented in this encounterPeoples Hospital10-03-2022 History of Present illness Narrative* Abdulaziz [...] Benign-Dr. 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 ([facility]) 05/25/2018 History of transfusion Hyperlipidemia LDL goal < 100 04/01/2012 Pulmonary embolus, right ([facility]) 09/25/2013 Status post aortic valve repair 2005 Thoracic aneurysm without mention of rupture Type 2 diabetes mellitus with stage 3 chronic kidney disease, with long-term current use of insulin([facility]) 06/20/2016 Vitamin D deficiency 01/03/2022 Previous Surgical History PAST SURGICAL HISTORY Procedure Laterality Date ABDOMINAL SURGERY HX AMPUTATION METATARSAL+TOE,SINGLE Right 05/25/2018 with delayed closure on 05/28/18. Dr. Obregon at [facility] COLONOSCOPY 10/10/2021 repeat in 3 [...] INSULIN PEN NEEDLE UF) 31 gauge x 5/16" 1 Each four times daily. With insulin [...] week. Discard Pen After blood sugar diagnostic (Integrated Corporate HealthTOUCH ULTRA TEST) test strip Test blood sugar(s) [...] 70 Resp 16 Ht 185.4 cm (6' 1") Wt 114.3 kg (252 lb) SpO2 98% [...] Abs Lymph 1.00 - 4.00 k/uL 1.81 [place]% % 6.9 Abs [place] <0.87 k/uL 0.86 Eosin% % 3.1 Abs [...] arise. - Discussed diabetic education issues of care home diabetic complications, hypoglycemic symptoms, hyperglycemic symptoms, [...] regimen. Abdulaziz Caldera MD documented in this encounterPeoples Hospital10-03-2022 Evaluation note* Diagnosis Type 2 diabetes [...] tract symptoms (LUTS) documented in this encounter [facility]09[facility] History of Present illness Narrative* Roselia Madrigal, TIMEKEEPING SUPERVISOR.FRONT DESK SUPERVISOR - 04/06/2022 9:40 AM EDT 04/06/2022 [...] Benign-Dr. 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 warfarin (COUMADIN) 5 mg tablet 10 mg Saturday and Saturday, 7.5 mg all other days or as directed. insulin needles, DISPOSABLE, (BD INSULIN PEN NEEDLE UF) 31 gauge x 5/16" 1 Each four times daily. With insulin [...] ONCE DAILY. FOR CHOLESTEROL. blood sugar diagnostic (SimracewayUCH ULTRA TEST) test strip Test blood sugar(s) [...] SEASONAL QUADRIVALENT HIGH DOSE AGE 65+ - [employer] COVID-19 BIVALENT BOOSTER VACCINE, AGE 12+ YR 3. Mild depression - ICD9: 311, ICD10: F32.A - discussed antidepressant - patient declines- he reports he does not feel depressed - encouraged marriage counseling as seems to be unhappy about his lack of motivation Roselia Madrigal APRN.FRONT DESK SUPERVISOR Prescription instructions reviewed with patient as applicable. [...] which included preparing to see the patient, [id number] patient care, completing clinical documentation, obtaining and/or reviewing separately obtained history, performing a medically appropriate examination, and counseling and educating the patient/family/caregiver. documented in this encounterPeoples Hospital09-21-2022 Miscellaneous Notes* Telephone Encounter - Valencia [...] AM EDT ----- Message from Roselia Madrigal APRN.FRONT DESK SUPERVISOR sent at 04/03/2022 2:47 PM EDT ----- Please forward INR to doctor technical applications scientist Roselia Madrigal APRN.FRONT DESK SUPERVISOR documented in this encounterPeoples Hospital09-16-2022 History of Present illness Narrative* Zachary Obregon - 03/30/2022 3:46 PM EDT Last saw Dr. Caldera: 03/07/22 Subjective: Patient presents to clinic c/o painful toenails. They state that the nails are especially painful with shoe gear and pressure. \\ Patient admits to being diabetic. No other [...] Care Merlene Martinez LPN documented in this encounterPeoples Hospital09-16-2022 Instructions* Patient Instructions* Zachary Obregon - [...] or sore from your shoes, do not "pop" it. Apply a bandage and wear a differentpair of shoes. Take Care of Your Toenails Cut toenails after bathing, when they are soft. Cut toenails straight across and smooth with a nail file. Avoid cutting into the corners of toes. Do not cut cuticles. If you have neuropathy (or decreased sensation in your feet) a chip washer should always cut your toenails. Be Careful [...] your shoes are too tight. Perform the "footwear test" described below. Footwear Test Use this simple [...] Go to your health care provider or chip washer to treat these conditions. documented in this encounterPeoples Hospital09-09-2022 History of Present illness Narrative* David Poon, [...] CARE PLAN OF CARE UPDATE: Assessment: Richard oRy is discontinued from Physical Therapy services due to goal achievement.. Patient was seen for 17 visits from Start of Care Date: 01/12/22 to 03/23/2022 and treatment included: Therapeutic exercise, Neuromuscular re-education, and Patient/Family/Caregiver Education. Goals for Episode of Care: created on 01/12/22 through 03/15/22 Goals updated on 03/23/2022. Bremer in home exercise program. (Met) Patient will [...] 42 David Poon PT documented in this encounterPeoples Hospital09-08-2022 Miscellaneous Notes* Telephone Encounter - Maggy Ibarra Pss - 03/22/2022 1:49 PM EDT Pharmacy verified in [place] Patient has been identified by name and [...] advise. Maggy Ibarra Pss documented in this encounterPeoples Hospital09-02-2022 History of Present illness Narrative* David Poon, PT - 03/16/2022 7:05 AM EDT [...] Total Treatment Time Minutes (timed/untimed): 40 Karen Gus, MANAGER RESIDENTIAL David Poon PT documented in this encounterPeoples Hospital08-29-2022 History of Present illness Narrative* David Poon [...] Re-Education: 1: Forward and backward stepping over 6" gustavo with 1 UE assist x 12 [...] 41 ALISIA Whiting PT documented in this encounterPeoples Hospital08-26-2022 Miscellaneous Notes* Addendum Note - David Poon PT - 03/09/2022 1:18 PM EDTAddended by: DAVID POON on: 03/09/2022 01:18 PM Modules accepted: Orders documented in this encounterPeoples Hospital08-26-2022 History of Present illness Narrative* David Poon [...] PROGRESS REPORT PLAN OF CARE UPDATE: Assessment: iRchard Roy demonstrates improvements in activity endurance, rising [...] 01/12/22 through 03/15/22 Goals updated on 03/09/2022. Bremer in home exercise program. (Met) Patient will [...] Patient to be seen for Therapeutic exercise (35742);Neuromuscular re-education (87467);Gait Training (05278);Patient/Family/Caregiver Education PLAN FOR NEXT VISIT: Add bridging [...] Re-Education: 1: Forward and backward stepping over 6" gustavo with 1 UE assist x 12 [...] 42 David Poon PT documented in this encounterPeoples [facility]08-24-2022 Miscellaneous Notes* Telephone Encounter - Amada [...] testing Madison Ma Cma documented in this encounterPeoples Hospital08-24-2022 Instructions* Patient Instructions* Abdulaziz Caldera MD - 03/07/2022 11:45 AM EDT Please take 2,000 units of vitamin D daily over the counter. documented in this encounterPeoples Hospital08-24-2022 History of Present illness Narrative* Abdulaziz Caldera MD - 03/07/2022 11:19 AM EDT Chief Complaint Patient presents with: 6 Month Exam ER F/U HPI Richard Roy is a 76 year old male who presents here today for ER Follow Up.. Patient evaluated at [facility] ED on 03/02 for complaint [...] Benign-Dr. 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 Dr. Obregon at [facility] COLONOSCOPY 10/10/2021 repeat in 3 [...] INSULIN PEN NEEDLE UF) 31 gauge x 5/16" 1 Each four times daily. With insulin [...] ONCE DAILY. FOR CHOLESTEROL. blood sugar diagnostic (My Top 10 ULTRA TEST) test strip Test blood sugar(s) [...] Abs Lymph 1.00 - 4.00 k/uL 1.81 [place]% % 6.9 Abs [place] <0.87 k/uL 0.86 Eosin% % 3.1 Abs [...] PANEL Abdulaziz Caldera MD documented in this encounterPeoples Hospital08-22-2022 History of Present illness Narrative* David Poon, [...] told all of the testing was negative and,"they couldn't find anything wrong, so they think I was just dehydrated." Pt notes the only thing he has [...] Re-Education: 1: Forward and backward stepping over 6" gustavo with 1 UE assist x 10 each leading with R and L foot 2: high knee marching 4 x length of parallel bars 3: BOSU step taps 2x 10 each foot 4: lateral stepping over 2" x 4" with focus on foot placement and symmetrical [...] 40 David Poon PT documented in this encounterPeoples Hospital08-19-2022 History of Present illness Narrative* David Poon PT - 03/02/2022 1:01 PM EDT [...] Re-Education: 1: Forward and backward stepping over 6" gustavo with 1 UE assist x 10 [...] 45 David Poon PT documented in this encounterPeoples Hospital08-15-2022 History of Present illness Narrative* David Poon [...] Re-Education: 1: Forward and backward stepping over 6" gustavo with 1 UE assist x 10 [...] 45 David Poon PT documented in this encounterPeoples Hospital08-12-2022 History of Present illness Narrative* David Poon [...] difficulty with forward and backward stepping over 6" gustavo with 1 UE assist and improvement [...] Difficulty with forward and backward stepping over 6" gustavo with 1 UE assist. TREATMENT: Therapeutic Exercise: 1: SciFit seat 15, level 2 x 5 minutes. 2: Seated hip abduction blue band 2x20 3: Step ups onto 4" step 2 x 5 reps leading with [...] Re-Education: 1: Forward and backward stepping over 6" gustavo with 1 UE assist x 10 [...] Total Treatment Time Minutes (timed/untimed): 43 Karen Weber MANAGER RESIDENTIAL David Poon PT documented in this encounterPeoples Hospital08-03-2022 History of Present illness Narrative* David Poon [...] green band 2x25 3: Step ups onto 4" step 2 x 5 reps leading with [...] Re-Education: 1: Forward and backward stepping over 6" gustavo with 1 UE assist x 10 [...] Total Treatment Time Minutes (timed/untimed): 47 David Lemon, PT documented in this encounterPeoples Hospital07-29-2022 History of Present illness Narrative* David Poon [...] 01/12/22 through 03/15/22 Goals updated on 02/09/2022. [place] in home exercise program. (Met) Patient will [...] Patient to be seen for Therapeutic exercise (41597);Neuromuscular re-education (16237);Gait Training (18897);Patient/Family/Caregiver Education PLAN FOR NEXT VISIT: Continue to [...] Re-Education: 1: Forward and backward stepping over 6" gustavo with 1 UE assist x 10 [...] 44 David Poon PT documented in this encounterPeoples Hospital07-26-2022 Miscellaneous Notes* Telephone Encounter - Nola Velasco - 02/06/2022 2:18 PM EDT Patient has been identified by name and date of : Yes Pending Prescriptions Disp Refills PEN NEEDLE, DIABETIC 31 GAUGE X 5/16" 120 Each 11 Si Each four times daily. With insulin NUHA: No RX INSTRUCTIONS: Patient aware RX will be sent to pharmacy. No need to notify patient. Nola Castro Pss documented in this encounterPeoples Hospital07-22-2022 History of Present illness Narrative* Cortney [...] He demonstrated difficulty with forward walking over 6" hurdles with catching toe on hurdles. He [...] OF FUNCTION: Difficulty with forward walking over 6" hurdles with catching toe on hurdles. TREATMENT: [...] Neuromuscular Re-Education: 1: Forward ambulation over 6, 6" hurdles back and forth x 2 (Difficulty with control with this today) 2: Forward and backward stepping over 6" gustavo with 1 UE assist x 10 [...] 43 ALISIA Whiting, PT documented in this encounterPeoples Hospital07-21-2022 Miscellaneous Notes* Telephone Encounter - Mila [...] pharmacy. No need to notify patient. Eulalia [facility] documented in this encounterPeoples Hospital07-19-2022 History of Present illness Narrative* Justina [...] 43 ALISIA Whiting PT documented in this encounterPeoples Hospital07-12-2022 Miscellaneous Notes* Telephone Encounter - Rebecca [...] you. Rebecca Gonzales RN documented in this encounterPeoples Hospital07-12-2022 History of Present illness Narrative* Chiki [...] raises 2x10 5: Sit to stand form 17" mat table x 6: *Seated hip abduction [...] Total Treatment Time Minutes (timed/untimed): 45 Karen Weber, ALISIA Byrd PT documented in this encounterPeoples Hospital07-08-2022 Miscellaneous Notes* Telephone Encounter - Maggy [...] on driving. Please advise. documented in this encounterPeoples Hospital07-01-2022 History of Present illness Narrative* David Poon, [...] of Care: created on 01/12/22 through 03/15/22 [place] in home exercise program. Patient will demonstrate [...] Planned: 16 Planned Treatment Interventions: Therapeutic exercise (12123);Neuromuscular re- education (98566);Gait Training (70959);Patient/Family/Caregiver Education PLAN FOR NEXT VISIT: Review HEP [...] 42 David Poon PT documented in this encounterPeoples Hospital07-01-2022 Miscellaneous Notes* Telephone Encounter - Ewa [...] Pending consult. Please advise documented in this encounterPeoples Hospital06-29-2022 Miscellaneous Notes* Telephone Encounter - Mila [...] his syncope/collapse. Thank you! documented in this encounterPeoples Hospital06-29-2022 Miscellaneous Notes* Result QuickNote - Justina Monique APRN.CNP - 01/10/2022 11:33 AM EDT Please call patient and notify him. Echocardiogram is stable. Valve replacement function is stable.No cardiac structure/function changes to explain his syncope/collapse. Thank you! documented in this encounterPeoples Hospital06-24-2022 History of Present illness Narrative* Jojo [...] medical record. REFERRING PHYSICIAN: Abdulaziz Caldera [address] [facility] [id number] Accompanied by: Spouse ASSESSMENT: 76 year old [...] evaluation of folllow up after hospitalization in [facility]. he was admitted because of [...] Since covid hit they went to [facility] and was staying in the house [...] kidney disease, with long-term current use of insulin([facility]) 06/20/2016 Vitamin D deficiency 01/03/2022 PSH: PAST SURGICAL HISTORY Procedure Laterality Date ABDOMINAL SURGERY HX AMPUTATION METATARSAL+TOE,SINGLE Right 05/25/2018 with delayed closure on 05/28/18. Dr. Obregon at [facility] COLONOSCOPY 10/10/2021 repeat in 3 [...] by mouth once daily. blood sugar diagnostic ([employer]ated [employer] HealthTOUCH ULTRA TEST) test strip Test blood sugar(s) [...] INSULIN PEN NEEDLE UF) 31 gauge x 5/16" 1 Each four times daily. With insulin [...] 58 Resp 16 Ht 185.4 cm (6' 1") Wt 111.6 kg (246 lb) SpO2 97% [...] gait ,unsteady Cannot tandem Jojo Kaur M.D. [facility] [place] Department of Neurology January 05, 2022 Total [...] lights on at night. documented in this encounterPeoples Hospital06-21-2022 Miscellaneous Notes* Telephone Encounter - Justina Garcia LPN - 01/02/2022 8:06 AM EDT I spoke to and informed him of Justina's response to lipid panel results. Patient voiced understanding. Justina Garcia LPN * Telephone Encounter - Justina Garcia LPN - 01/02/2022 7:43 AM EDT ----- Message from Justina Monique APRN.FRONT DESK SUPERVISOR sent at 01/02/2022 7:38 AM EDT ----- Please call patient and notify him cholesterol has good control. Thank you! documented in this encounterPeoples Hospital06-20-2022 History of Present illness Narrative* Abdulaziz Caldera MD - 01/01/2022 10:20 AM EDT Chief Complaint Patient presents with: Hospital Follow Up: [facility] discharged 12/29/21 HPI Richard Roy is a 76 year old male who presents here today for Hospital Discharge Follow up. Accompanied today by his . Patient admitted to [facility] from 12/27 to 12/29 after presenting to the [facility] ED after being found slumped over his tractor at home earlier in the afteernoon. Had been working outside for unknown period of time. Had only eaten cookies and milk that day. Heat index over 100. Back to baseline at the time of evaluation by hospitalist at [facility]. Found to have leukocytosis at [facility] and elevated lactic acid level. Noted [...] echo since it was not completed at [facility]. No other changes to regimen. [...] delayed closure on 05/28/18. Dr. Obregon at [facility] COLONOSCOPY 10/10/2021 repeat in 3 [...] by mouth once daily. blood sugar diagnostic (My Top 10 ULTRA TEST) test strip Test blood sugar(s) [...] INSULIN PEN NEEDLE UF) 31 gauge x 5/16" 1 Each four times daily. With insulin [...] SCRN Abdulaziz Caldera MD documented in this encounterPeoples Hospital06-20-2022 Instructions* Patient Instructions* Justina Monique APRN.FRONT DESK SUPERVISOR - 01/01/2022 9:05 AM EDT High [...] resting blood pressure ranges up to 120/80 ("120 over 80"). The first number (120 in this example) [...] risk for high blood pressure. Developed by [employer] (formerly [employer]). Published by [employer] (formerly [employer]). Copyright 2014 [employer] and/or one of its subsidiaries. All rights reserved. documented in this encounterPeoples Hospital06-20-2022 History of Present illness Narrative* Justina Monique APRN.CNP - 01/01/2022 8:57 AM EDT Chief [...] bothexplain to me he was hospitalized at [facility] for 2 days last week for [...] LE swelling. Records have been requested from [facility]. He is unsure of what testing was completed. An echocardiogram was ordered at his last office visit with me.If this was not completed at [facility], I recommend this be completed for [...] delayed closure on 05/28/18. Dr. Obregon at [facility] COLONOSCOPY 10/10/2021 repeat in 3 [...] INSULIN PEN NEEDLE UF) 31 gauge x 5/16" 1 Each four times daily. With insulin 120 Each 11 Current Facility-Administered Medications Medication Dose Route Frequency Provider Last Rate Last Admin perflutren lipid microspheres 1.3 mL in NaCl (PF) 0.9% 10 mL injection (DEFINITY) INTRAVENOUS DIRECTED PRN Justina Monique, TIMEKEEPING SUPERVISOR.FRONT DESK SUPERVISOR sodium chloride 0.9 % (flush) 10 mL (BD POSIFLUSH) 10 mL INTRAVENOUS DIRECTED PRN Justina Monique APRN.FRONT DESK SUPERVISOR Review of Systems Constitutional: Negative for [...] MRI of his head CAD -MILD on [facility] 2004 -stress testing 2013 with no [...] 01, 2022, 8:57 AM documented in this encounterPeoples Hospital06-19-2022 Note. MICRO - Microbiology PROCEDURE: Blood Culture (bacterial) [*1] SOURCE: Blood BODY SITE: COLLECTED DATE/TIME: 12/27/2021 17:43 EDT RECEIVED DATE/TIME: 12/28/2021 14:37 EDT START DATE/TIME: 12/28/2021 14:37 EDT FREE TEXT SOURCE: FINAL REPORTS Final Report [] Verified Date/Time/Personnel: 12/31/2021 07:29 EDT Staphylococcus epidermidis Isolated from anaerobe bottle only. Refer to previous culture for susceptibility. [id number] PRELIMINARY REPORTS Preliminary Report [] Verified Date/Time/Personnel: 12/30/2021 09:39 EDT Staphylococcus epidermidis Isolated from anaerobe bottle only. Refer to previous culture for susceptibility. [id number] Preliminary Report [] Verified Date/Time/Personnel: 12/28/2021 15:59 EDT Culture has been received in lab and is no growth to date. Routine cultures are held for 5 days. STAINS GSANA [] Verified Date/Time/Personnel: 12/29/2021 14:08 EDT Gram Positive Cocci in clusters Performing Locations *1: This test was performed at: [facility], [address] [place] [address], [id number] , [facility]ly [facility] ([place])12-31-2021 Note. MICRO - Microbiology PROCEDURE: Blood Culture [...] Locations *1: This test was performed at: [facility], [address] [place] [address], [id number] , [facility])12-27-2021 SARS-CoV-2 (COVID-19) RNA ANGELY+probe Ql (Nph)Positive 2 *ABN* (12/27/21 5:43 PM)AO Auto Urine SSComment on above:Result Comment: positive covid cvrb s. tona Evaluation + Plan note Diagnostic Tests Pending * Urinalysis 12/27/21 * Blood Culture (bacterial) 12/27/21 * Blood Culture (bacterial) 12/27/21 [facility] 06-02-2022 History of Present illness Narrative* Abdulaziz Caldera MD - 12/14/2021 3:13 PM EDT Chief Complaint Patient presents with: Covid Follow Up HPI Richard Roy is a 76 year old male who presents here today for Above Complaints.. Patient positive for COVID in the [facility] ER last week on 12/06. [...] Benign-Dr. 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 Dr. Obregon at [facility] COLONOSCOPY 10/10/2021 repeat in 3 [...] by mouth once daily. blood sugar diagnostic (SimracewayUCH ULTRA TEST) test strip Test blood sugar(s) [...] INSULIN PEN NEEDLE UF) 31 gauge x 5/16" 1 Each four times daily. With insulin [...] detail. Abdulaziz Caldera MD documented in this encounterPeoples Hospital05-27-2022 History of Present illness Narrative* Abdulaziz [...] today for Above Complaints.. Patient evaluated at [facility] ER on 12/06 for complaint of generalized weakness, cough, and feeling off balance and developed cough which started on 12/04. Denied other COVID symptoms at that time. Lab workup in the ER was unremarkable aside from positive COVID test and INR of 3.3. UA unremarkable. CXR showed some ill defined densities in RLL which was likely 2/2 COVID infection. [place] to be well enough and discharged home [...] kidney disease, with long-term current use of insulin([facility]) 06/20/2016 Previous Surgical History PAST SURGICAL HISTORY Procedure Laterality Date ABDOMINAL SURGERY HX AMPUTATION METATARSAL+TOE,SINGLE Right 05/25/2018 with delayed closure on 05/28/18. Dr. Obregon at [facility] COLONOSCOPY 10/10/2021 repeat in 3 [...] by mouth once daily. blood sugar diagnostic (My Top 10 ULTRA TEST) test strip Test blood sugar(s) [...] INSULIN PEN NEEDLE UF) 31 gauge x 5/16" 1 Each four times daily. With insulin [...] these interactions. Not interested in [place] [facility] [place]. Since his symptoms are mild, he would prefer to rest at home. Discussed risks and benefits of treatment and that he is high risk for severe infection. Red flags for re-assessment reviewed with patient in detail. I spent a total of 25 minutes on the date of the service which included preparing to see the patient, [id number] patient care, completing clinical documentation, obtaining and/or reviewing separately obtained history, performing a medically appropriate examination, counseling and educating the pat ient/family/caregiver and ordering medications, tests, or procedures. Abdulaziz Caldera MD documented in this encounterPeoples Hospital05-27-2022 Miscellaneous Notes* Telephone Encounter - Abdulaziz [...] with one of our providers or with [employer] online. * Telephone Encounter - David Martinez Pss - 12/08/2021 2:16 PM EDT Patient called stating he was at [facility] ER on 12/06. Tested positive for covid. Patient was informed tocontact the office within 5 days to inform. Please advise patient when he can be seen in office. documented in this encounterPeoples Hospital05-09-2022 Miscellaneous Notes* Telephone Encounter - Eulalia Gaston [facility] - 11/20/2021 9:49 AM EDT Patient has been identified by name and date of : Yes Pending Prescriptions Disp Refills METFORMIN ER 500 MG 24 HR TABLET,EXTENDED RELEASE Sig: Take 1 tablet by mouth daily with breakfast. NUHA: No OMAR-09/06/21 Labs-08/30/21 NOV-03/07/22 RX INSTRUCTIONS: Patient aware RX will be sent to pharmacy. No need to notify patient. [facility] documented in this encounterPeoples Hospital04-11-2022 Instructions* Patient Instructions* Marcella Park PA-C - 10/23/2021 1:25 PM EDT -Recommend daily fiber supplement and plenty of fluids The following instructions are important for you related to your office visit today with the [facility] General Surgeons. INSTRUCTIONS FOR DIVERTICULA I [...] you should contact our office immediately @ [phone] and ask to be transferred to the General Surgery department. The following instructions are important for you related to your office visit today with the [facility]. INSTRUCTIONS FOLLOWING A POLYP [...] you should contact our office immediately @ [phone] and ask to be transferred to the General Surgery department. documented in this encounterPeoples Hospital04-11-2022 History of Present illness Narrative* Marcella Park PA-C - 10/23/2021 1:09 PM EDT FOLLOW UP VISIT - ENDOSCOPY NAME: Richard Bonilla [facility] NO.: [id number] DATE OF SERVICE: 10/23/2021 : 1945 REFERRING [...] which included preparing to see the patient, [id number] patient care, completing clinical documentation, obtaining and/or reviewing separately obtained history, counseling and educating the patient/family/caregiver, communicating with other HCPs (not separately reported), independently interpreting results (not separately reported) and communicating results to the patient/family/caregiver. Marcella Park PA-C documented in this encounterPeoples Hospital03-29-2022 Nurse Note* Caroline Larkin RN - [...] answered. Caroline Larkin RN documented in this encounterPeoples Hospital03-29-2022 History and physical note * Richard [...] goal < 100 04/01/2012 Pulmonary embolus, right ([facility]) 09/25/2013 Status post aortic valve repair 2005 Thoracic aneurysm without mention of rupture Type 2 diabetes mellitus with stage 3 chronic kidney disease, with long-term current use of insulin([facility]) 06/20/2016 PAST SURGICAL HISTORY PAST SURGICAL HISTORY Procedure Laterality Date AMPUTATION METATARSAL+TOE,SINGLE Right 05/25/2018 with delayed closure on 05/28/18. Dr. Obregon at [facility] COLONOSCOPY FLX DX W/COLLJ SPEC [...] by mouth once daily. blood sugar diagnostic (My Top 10 ULTRA TEST) test strip Test blood sugar(s) [...] INSULIN PEN NEEDLE UF) 31 gauge x 5/16" 1 Each four times daily. With insulin [...] entered by the nurse and reviewed by ca Nursing Notes: Cortney Starr LPN 08/16/2021 8:38 [...] C (97.2 F), height 185.4 cm (6' 1"), weight 111.6 kg (246 lb), SpO2 98 [...] patient was offered a [facility]. I have counseled the patient [...] diagnosis) Marcella Park PA-C documented in this encounterPeoples Hospital03-24-2022 Miscellaneous Notes* Telephone Encounter - Mila Castro LPN - 10/05/2021 3:40 PM EDT Spoke with pt and information listed below given. Pt verbalizes understanding. Mila Castro LPN * Telephone Encounter - Violette Velasco - 10/05/2021 2:21 PM EDT Patient has [...] patient. Violette Call Pss documented in this encounterPeoples Hospital03-23-2022 Miscellaneous Notes* Telephone Encounter - Nelson [...] advise, Halima Diaz RN documented in this encounterPeoples Hospital02-02-2022 Miscellaneous Notes* Telephone Encounter - Garland Vicente - 08/16/2021 9:36 AM EST 10-10-2021 [facility] documented in this encounterPeoples Hospital01-13-2022 NoteHNO ID: [id number] Author: REY Burt Service: Radiology Author Type: Family Practice Physician Assistant Type: Progress Notes Filed: 07/27/2021 10:50 AM [...] Roy DATE: July 27, 2021 TIME: 10:49 [id number] History of Past illness Narrative* Problem Noted [...] of this encounter (statuses as of 10/04/2021) [facility] of [facility] Narrative* Problem [...] of this encounter (statuses as of 10/05/2021) [facility] of [facility] Narrative* Problem Noted Date Resolved Date S/P aortic valve replacement 10/25/201401/2016 Pulmonary embolus, right 09/25/201308/19/ 018 Callus of foot 09/25/2013 07/20/2019 Tinea of nail 09/25/2013 07/20/2019 Encounter for monitoring Coumadin therapy 201307/20/2019 Overview: INR goal 2.5-3.5 Morbid obesity with BMI of 40.0-44.9, adult 04/12/201208/19/2017 Skin lesion 03/21/2011 06/20/2016 Cellulitis and abscess 11/22/2010 6 Non-healing surgical wound 09/19/201006/20 Abscess 09/08/2010 06/20/2016 Sciatica 05/04/2009 06/20/2016 documented as of this encounter (statuses as of 10/11/2021) [facility] of [facility] Narrative* Problem Noted Date Resolved Date S/P aortic valve replacement 10/25/201401/2016 Pulmonary embolus, right 09/25/201305/2 018 Callus of foot 09/25/2013 07/20/2019 Tinea of nail 09/25/2013 07/20/2019 Encounter for monitoring Coumadin therapy 201307/20/2019 Overview: INR goal 2.5-3.5 Morbid obesity with BMI of 40.0-44.9, adult 04/12/2012/05/2018 Skin lesion 03/21/2011 06/20/2016 Cellulitis and abscess 11/22/2010 6 Non-healing surgical wound 09/19/201006/20 Abscess 09/08/2010 06/20/2016 Sciatica 05/04/2009 06/20/2016 documented as of this encounter (statuses as of 10/16/2021) [facility] Narrative* Problem [...] of this encounter (statuses as of 10/27/2021) [facility] Narrative* Problem [...] of this encounter (statuses as of 11/20/2021) [facility] Narrative* Problem [...] of this encounter (statuses as of 12/12/2021) [facility] [facility] Narrative* Problem [...] of this encounter (statuses as of 12/13/2021) [facility]* Problem [...] of this encounter (statuses as of 12/14/2021) [facility]* Problem [...] of this encounter (statuses as of 01/01/2022) [facility]* Problem [...] of this encounter (statuses as of 01/02/2022) [facility]* Problem [...] of this encounter (statuses as of 01/02/2022) [facility] Problem [...] of this encounter (statuses as of 01/06/2022) [facility] Problem [...] of this encounter (statuses as of 01/10/2022) [facility] Problem [...] of this encounter (statuses as of 01/11/2022) [facility] Problem [...] of this encounter (statuses as of 01/12/2022) [facility] Problem [...] of this encounter (statuses as of 01/12/2022) [facility] Problem [...] of this encounter (statuses as of 01/19/2022) [facility] Problem [...] of this encounter (statuses as of 01/23/2022) [facility] Problem [...] of this encounter (statuses as of 01/25/2022) [facility]* Problem [...] of this encounter (statuses as of 01/30/2022) [facility] Problem [...] of this encounter (statuses as of 02/01/2022) [facility] Problem [...] of this encounter (statuses as of 02/02/2022) [facility] Problem [...] of this encounter (statuses as of 02/02/2022) [facility] Problem [...] of this encounter (statuses as of 02/06/2022) [facility] Problem [...] of this encounter (statuses as of 02/09/2022) [facility]* Problem [...] of this encounter (statuses as of 02/14/2022) [facility] Problem [...] of this encounter (statuses as of 02/26/2022) [facility] Problem [...] of this encounter (statuses as of 03/02/2022) [facility] Problem [...] of this encounter (statuses as of 03/05/2022) [facility] Problem [...] of this encounter (statuses as of 03/07/2022) [facility] Problem [...] of this encounter (statuses as of 03/08/2022) [facility] Problem [...] of this encounter (statuses as of 03/09/2022) [facility] Problem [...] of this encounter (statuses as of 03/12/2022) [facility] Problem [...] of this encounter (statuses as of 03/16/2022) [facility] Problem [...] of this encounter (statuses as of 03/23/2022) [facility] Problem [...] of this encounter (statuses as of 04/03/2022) [facility] Problem [...] of this encounter (statuses as of 04/04/2022) [facility] Problem [...] of this encounter (statuses as of 04/06/2022) [facility] Problem [...] of this encounter (statuses as of 04/17/2022) [facility] Problem [...] of this encounter (statuses as of 04/17/2022) [facility] Problem [...] of this encounter (statuses as of 04/19/2022) [facility] Problem [...] of this encounter (statuses as of 05/16/2022) [facility] Problem [...] of this encounter (statuses as of 06/25/2022) [facility] Problem [...] of this encounter (statuses as of 07/14/2022) [facility] Problem [...] of this encounter (statuses as of 07/15/2022) [facility] Problem [...] of this encounter (statuses as of 07/18/2022) [facility] Problem [...] of this encounter (statuses as of 07/18/2022) [facility] Problem [...] of this encounter (statuses as of 07/19/2022) [facility] Problem [...] of this encounter (statuses as of 07/20/2022) [facility] Problem [...] of this encounter (statuses as of 07/25/2022) [facility] Problem [...] of this encounter (statuses as of 07/26/2022) [facility] Problem [...] of this encounter (statuses as of 07/27/2022) [facility] Problem [...] of this encounter (statuses as of 07/31/2022) [facility] Problem [...] of this encounter (statuses as of 08/06/2022) [facility] Problem [...] of this encounter (statuses as of 08/07/2022) [facility] Problem [...] of this encounter (statuses as of 08/09/2022) [facility] Problem [...] of this encounter (statuses as of 08/14/2022) [facility] Problem [...] of this encounter (statuses as of 08/16/2022) [facility] Problem [...] of this encounter (statuses as of 08/28/2022) [facility] Problem [...] of this encounter (statuses as of 09/07/2022) [facility] Problem [...] of this encounter (statuses as of 09/09/2022) [facility] Problem [...] of this encounter (statuses as of 09/25/2022) [facility] Problem [...] of this encounter (statuses as of 10/23/2022) [facility] Problem [...] of this encounter (statuses as of 11/20/2022) [facility] Problem [...] of this encounter (statuses as of 11/20/2022) [facility] Problem [...] of this encounter (statuses as of 12/13/2022) [facility] Problem [...] of this encounter (statuses as of 12/14/2022) [facility] Problem [...] of this encounter (statuses as of 12/18/2022) [facility] Problem [...] of this encounter (statuses as of 12/25/2022) [facility]* Problem [...] of this encounter (statuses as of 12/27/2022) [facility]* Problem [...] of this encounter (statuses as of 12/31/2022) [facility]* Problem [...] of this encounter (statuses as of 01/03/2023) [facility] Problem [...] of this encounter (statuses as of 01/04/2023) [facility]* Problem [...] of this encounter (statuses as of 01/04/2023) [facility]* Problem [...] of this encounter (statuses as of 01/25/2023) [facility]* Problem [...] of this encounter (statuses as of 01/29/2023) [facility] Diagnosis Type 2 diabetes mellitus with diabetic neuropathy, with long-term current use of insulin (HCC) Status post aortic valve repair Other postprocedural status Chronic anticoagulation Long-term (current) use of anticoagulants [facility] Colon cancer screening Special screening for malignant neoplasms, colon documented in this encounter [facility] note* Diagnosis Colon cancer screening- Primary Special screening for malignant neoplasms, colon documented in this encounter [facility] note* Diagnosis Diverticulosis- Primary Diverticulosis of colon (without mention of hemorrhage) Cecal polyp documented in this encounter [facility] noteNo assessment information availableWAdena [facility] Work Phone: Evaluation note* Diagnosis COVID-19- Primary documented in this encounter [facility] note* Diagnosis COVID-19- Primary documented in this encounter [facility] note* Diagnosis Onset Date Resolution Status Acute dehydration acute ANTHONY (acute kidney injury) ac tribe Heat exhaustion acute Hyperkalemia acute Lactic acidosis acute Leukocytosis acute [facility] Work Phone: Evaluation note* Diagnosis Hyperlipidemia with target LDL less than 100- Primary Other and unspecified hyperlipidemia Primary hypertension Unspecified essential hypertension Thoracic aortic aneurysm without rupture (HCC) Thoracic aneurysm without mention of rupture Coronary artery disease involving [place] coronary artery of [place] heart without angina pectoris Syncope, unspecified syncope type Obesity, Class II, BMI 35-39.9 Obesity, unspecified documented in this encounter [facility] note* Diagnosis Syncope and collapse- Primary Altered mental status, unspecified altered mental status type Urinary incontinence, unspecified type Benign prostatic hyperplasia with nocturia Nocturia Vitamin D deficiency, unspecified Wound of left lower extremity, initial encounter Encounter for screening for malignant neoplasm of prostate Special screening for malignant neoplasm of prostate documented in this encounter [facility] note* Diagnosis Abnormality of gait due to impairment of balance- Primary Altered mental status, unspecified altered mental status type documented in this encounter [facility] note* Diagnosis Chronic anticoagulation Long-term (current) use of anticoagulants Thoracic aortic aneurysm without rupture (HCC) Thoracic aneurysm without mention of rupture Status post aortic valve repair Other postprocedural status [facility] Diagnosis Type 2 diabetes mellitus with diabetic neuropathy, with long-term current use of insulin (HCC)- Primary documented in this encounter [facility] note* Diagnosis Abnormality of gait due to impairment of balance- Primary documented in this encounter [facility] note* Diagnosis Abnormality of gait due to impairment of balance- Primary [facility] Vitamin D deficiency Unspecified vitamin D deficiency [facility] Diagnosis Abnormality of gait due to impairment of balance- Primary [facility] Diagnosis Vitamin D deficiency Unspecified vitamin D deficiency [facility] Diagnosis Type 2 diabetes mellitus with stage 3 chronic kidney disease, with long-term current use of insulin ([facility]) [facility]* Diagnosis Abnormality of gait due to impairment of balance- Primary [facility] Diagnosis Type 2 diabetes mellitus with diabetic neuropathy, with long-term current use of insulin ([facility]) [facility] Diagnosis Abnormality of gait due to impairment of balance- Primary [facility] Diagnosis Abnormality of gait due to impairment of balance- Primary [facility] Diagnosis Onset Date Resolution Status Acute dehydration resolved Heat exhaustion resolved [facility] Work Phone: Evaluation note* Diagnosis Abnormality of gait due to impairment of balance- Primary [facility] Diagnosis Status post aortic valve repair Other postprocedural status Chronic anticoagulation Long-term (current) use of anticoagulants [facility] Diagnosis Generalized weakness- Primary Other malaise and fatigue Supratherapeutic INR Abnormal coagulation profile ANTHONY (acute kidney injury) (HCC) Acute kidney failure, unspecified [facility] Diagnosis Abnormality of gait due to impairment of balance- Primary [facility] Diagnosis Abnormality of gait due to impairment of balance- Primary [facility] Diagnosis Urinary incontinence, unspecified type [facility] Diagnosis Abnormality of gait due to impairment of balance- Primary [facility] Diagnosis Onychomycosis- Primary Dermatophytosis of nail Pain in toe of left foot Pain in limb Amputated toe of right foot (HCC) Diabetic polyneuropathy associated with type 2 diabetes mellitus (HCC) [facility] Diagnosis Generalized weakness- Primary Other malaise and fatigue Encounter for immunization Need for other specified prophylactic vaccination against single bacterial disease Mild depression Depressive disorder, not elsewhere classified [facility] Diagnosis Generalized anxiety disorder- Primary Polyneuropathy Unspecified hereditary and idiopathic peripheral neuropathy [facility] Diagnosis Urinary incontinence, unspecified type [facility] Diagnosis Onset Date Resolution Status History of pulmonary embolism acute History of thoracic aortic aneurysm repair acute NSTEMI, initial episode of care acute HTN (hypertension) [facility] Work Phone: Evaluation note* Diagnosis Dizziness- Primary Dizziness and giddiness Chronic frontal sinusitis [facility]* Diagnosis Type 2 diabetes mellitus with diabetic neuropathy, with long-term current use of insulin ([facility])- Primary Diabetic polyneuropathy associated with type 2 diabetes mellitus (HCC) NSTEMI (non-ST elevated myocardial infarction) ([facility]) Acute myocardial infarction, subendocardial infarction, [...] disease, with long-term current use of insulin ([facility]) 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, macular edema presence unspecified ([facility]) [facility]* Diagnosis Driving safety issue- Primary Other specified personal history presenting hazards to health [facility] Diagnosis Onychomycosis- Primary Dermatophytosis of nail Pain in toe of left foot Pain in limb Amputated toe of right foot (HCC) Diabetic polyneuropathy associated with type 2 diabetes mellitus ([facility]) [facility]* Diagnosis Spinal stenosis, lumbar region, without neurogenic claudication- Primary Primary osteoarthritis of both knees Primary localized osteoarthrosis, lower leg [facility]* Diagnosis Spinal stenosis, lumbar region, without neurogenic claudication- Primary Primary osteoarthritis of both knees Primary localized osteoarthrosis, lower leg [facility]* Diagnosis Spinal stenosis, lumbar region, without neurogenic claudication- Primary Primary osteoarthritis of both knees Primary localized osteoarthrosis, lower leg documented in this encounter [facility] note* Diagnosis Spinal stenosis, lumbar region, without neurogenic claudication- Primary Primary osteoarthritis of both knees Primary localized osteoarthrosis, lower leg [facility]* Diagnosis Spinal stenosis, lumbar region, without neurogenic claudication- Primary Primary osteoarthritis of both knees Primary localized osteoarthrosis, lower leg documented in this encounter [facility] note* Diagnosis Spinal stenosis, lumbar region, without neurogenic claudication- Primary Primary osteoarthritis of both knees Primary localized osteoarthrosis, lower leg documented in this encounter [facility] note* Diagnosis Onset Date Resolution Status Confusion acute Weakness acute [facility] Work Phone: Evaluation note* Diagnosis Onset Date Resolution Status Confusion acute Weakness acute ABLA (acute blood loss anemia) acute Acute encephalopathy acute Supratherapeutic INR acute Syncope acute Upper gastrointestinal bleeding acute Warfarin-induced coagulopathy acute [facility] Work Phone: Evaluation note* Diagnosis Onset [...] acute Warfarin-induced coagulopathy acute HTN (hypertension) chronic [facility] Work Phone: Evaluation note* Diagnosis Onset [...] type II acute Sick sinus syndrome acute [facility] Work Phone: Evaluation note* Diagnosis Onset [...] (INR) acute UTI (urinary tract infection) acute [facility] Work Phone: Evaluation note* Diagnosis Onset [...] UTI (urinary tract infection) acute Weakness acute [facility] Work Phone: Evaluation note* Diagnosis Onset [...] degree AV block, Mobitz type II chronic [facility] Work Phone: Evaluation note* Diagnosis [...] Second degree AV block, Mobitz type II [facility] Work Phone: Evaluation note* Diagnosis Onset Date [...] Second degree AV block, Mobitz type II [facility] Work Phone: Evaluation note* Diagnosis Onset Date Resolution Status Presence of cardiac pacemaker acute Syncope acute Second degree AV block, Mobitz type II chronic Sick sinus syndrome chronic Atrial fibrillation acute HLD (hyperlipidemia) acute Presence of cardiac pacemaker acute HTN (hypertension) chronic Second degree AV block, Mobitz type II chronic [facility] Work Phone: Evaluation note* Diagnosis Onset Date Resolution Status Atrial fibrillation acute HLD (hyperlipidemia) acute Presence of cardiac pacemaker acute HTN (hypertension) chronic Second degree AV block, Mobitz type II [facility] Work Phone: History and physical note Author Dr. Aly [facility] January 04, 2023 4:32pm Note Date/Time January 04, 2023 4:12 pm [facility] Medical Records Department [address] [place] [address] H&P Exam - Hospitalist 01/04/23 1607 MR#: [id number] Acct: [id number] Name: RICHARD ROY Rep #:[id number] : 1945 77 From: Karen Aly MD PCP: Dr. Luis Caldera MD Status :ADM LUIS ANGEL Location: [place] [address] HPI - General General Date of Admission: 01/04/23 Date of Service: 01/04/23 Chief Complaint: Confusion, falls. HPI Narrative The patient is a 77 y/o M w/ PMHx: AAA s/p repair, Hx COVID-19, Hx GI bleed, Valvular heart disease s/p AVR, HTN, HLD, VTE w/ Hx DVT/PE, Diabetes mellitus type II, Obesity who presents to the [facility] ED on 01/04/23 with history of ~ [...] no acute intracranial abnormality, right maxillary sinusitis. [facility] Medical History Amputation of right great toe [...] 78.3 H, Lymph % (Auto) 12.8 L, [place] % (Auto) 5.9, Eos % (Auto) 1.7, [...] Sl. Cloudy, Urine pH 6.0, Ur Specific [place] 1.020, Urine Protein 15 H, Urine Glucose [...] type II, Obesity who presents to the [facility] ED on 01/04/23 with history of ~ [...] 60 minutes. Charges/Coding Visit Charges Inpatient E&M: 39169 Init Hosp L2 01/04/23 1632 <Electronically signed by Karen Aly MD> Cosigner Signature (if applicable): CC: Dr. Karen Aly MD; Dr. Luis Caldera MD~ Signed [facility] Work Phone: Hospital course Narrative No data available for this section [facility] Hospital Discharge instructions No data available for this section [facility] Hospital Discharge instructions Additional Instructions Work-up [...] days of antibiotics please return for repeat evaluationWA[facility] Work Phone: Hospital Discharge instructionsAdditional Instructions Blood work did not show any acute findings here today. X-ray did not show any evidence of osteomyelitis of his foot. His head CT did not show any acute findings either. Return with worsening symptoms or any concerns.[facility] Work Phone: Progress note No data available for this section [facility] Progress note Author Liu Hackett [facility] January 26, 2023 3:50pm Note Date/Time January 26, 2023 3:50 pm [facility] Medical Records Department [address] [place] [address] Progress Note - GI 01/26/23 1549 MR#: [id number] Acct: [id number] Name: RICHARD ROY Rep #:[id number] : 1945 77 From: Liu Hackett DO PCP: Dr. Luis Caldera MD Status :ADM IN Location: [place] [id number]- Subjective Subjective Patient is doing well today. [...] Balance 1130.42 / 1030.42 2169.17 / 2169.17 8.33 / 8.33 Lab / Micro Data 01/26/23 06:37 01/26/23 [...] 78.4 H, Lymph % (Auto) 8.1 L, [place] % (Auto) 9.6, Eos % (Auto) 1.6, [...] Heart rate in 50s.. Discussed with the resource program teacher. No chest pain or tightness. Physical exam [...] ensure healing. Charges/Coding Visit Charges Inpatient E&M: 70987 Subs Hosp L3 01/26/23 8117 <Electronically signed by Liu Friend DO> Cosigner Signature (if applicable): CC: ~ Signed [facility] Work Phone: Progress note Author Smith Leija [facility] February 13, 2023 3:58pm Note Date/Time February 13, 2023 3:5 8pm [facility] Medical Records Department [address] [place] [address] Progress Note - Infect Disease 02/13/23 1557 MR#: [id number] Acct: [id number] Name: RICHARD ROY Rep #:[id number] : 1945 77 From: Smith huang MD PCP: Dr. Luis Caldera MD Status :ADM [place] [facility] Physical Exam Narrative Feeling better, no fever, [...] Cosigner Signature (if applicable): CC: ~ Signed [facility] Work Phone: Reason for referral (narrative)* Outpatient Procedure (Routine) - Closed Specialty Diagnoses / Procedures Referred By Contac t Referred To Contact [facility] Diagnoses Colon cancer screening Procedures COLONOSCOPY SCREENING COLONOSCOPY FLX DX W/COLLJ SPEC WHEN PFRMD Marcella Park PA-C [address] [place] [address] [facility] [place] [address] [place] [address] Referral ID Status Reason Start Date Expiration Date V isits Requested Visits Authorized [id number] Closed Auto-Generate d Referral 08/16/2021 08/16/2022 1 1 [facility] for referral (narrative)* Outpatient Procedure (Routine) - Closed Specialty Diagnoses / Procedures Referred By Contac t Referred To Contact [facility] Diagnoses Colon cancer screening Procedures COLONOSCOPY SCREENING COLONOSCOPY FLX DX W/COLLJ SPEC WHEN Marcella Alatorre PA-C [address] [place] [address] [facility] [place] [address] [place] [id number] Referral ID Status Reason Start Date Expiration Date V isits Requested Visits Authorized [id number] Closed Auto-Generate d Referral 08/16/2021 08/16/2022 1 1 [facility] for referral (narrative)No reason for referral information [facility] N[facility]* Outpatient Procedure (Routine) - Closed Specialty Diagnoses / Procedures Referred By Contac t Referred To Contact [facility] Diagnoses Colon cancer screening Procedures COLONOSCOPY SCREENING COLONOSCOPY FLX DX W/COLLJ SPEC WHEN Marcella Alatorre PA-C [address] [place] [address] [facility] [place] [address] [place] [id number] Referral ID Status Reason Start Date Expiration Date V isits Requested Visits Authorized [id number] Closed Auto-Generate d Referral 08/16/2021 08/16/2022 1 1 [facility] for visit Narrative* Outpatient Procedure (Routine) - Closed Specialty Diagnoses / Procedures Referred By Contac t Referred To [facility] Diagnoses Chronic anticoagulation Thoracic aortic aneurysm without rupture (HCC) Status post aortic valve repair Procedures ECHO TTE W/DOPPLER, Justina Arguelles, TIMEKEEPING SUPERVISOR.FRONT DESK SUPERVISOR [address] [place] [address] [facility] [place] [address] [place] [id number] Referral ID Status Reason Start Date Expiration Date V isits Requested Visits Authorized [id number] Closed Auto-Generate d Referral 07/03/2021 07/03/2022 1 1 [facility] Advance Directives No Advanced Directives Records FoundDocuments on File Type Date Recorded 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 Advance Directive(s) 09/12/2021 7:14 AM Documents on File Type Date Recorded 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 Advance Directive(s) 09/12/2021 7:14 AM Advance Directive Response Recorded Date/ Time Advance Directives Yes September 16 11:11pm Living Will No December 06, 2021 1 1:07pm Power of Outpatient Interviewing Clerk No December 06, 2021 11:07pm Advance Directive Response Recorded Date/ Time Name of Medical Power of Outpatient Interviewing Clerk Gena Kirill December 27, 2021 10:36pm Advance Directives Yes September 16 11:11pm Living Will Yes December 27, 2021 10:36pm Power of Outpatient Interviewing Clerk Yes December 27 10:36pm Advance Directive Response Recorded Date/ Time Name of Medical Power of Outpatient Interviewing Clerk Gena Kirill December 27, 2021 10:36pm Name of Medical Power of Outpatient Interviewing Clerk TEDDY ROY (SON ) March 02, 2022 2:34pm Advance Directives Yes September 16 11:11pm Living Will Yes March 02 2:34pm Power of Outpatient Interviewing Clerk Yes March 02, 2 022 2:34pm Advance Directive Response Recorded Date/ Time Name of Medical Power of Outpatient Interviewing Clerk teddy roy July 10, 2022 3:06am Advance Directives Yes September 16 10:11pm Living Will Yes July 10, 2 022 3:06am Power of Outpatient Interviewing Clerk Yes July 10, 2022 3:06am Advance Directive Response Recorded Date/ Time Name of Medical Power of Outpatient Interviewing Clerk ? January 04, 2023 11:15am Advance Directives Yes September 16 11:11pm Living Will Yes January 04, 2023 11:15am Power of Outpatient Interviewing Clerk Yes January 04 11:15am Advance Directive Response Recorded Date/ Time Name of Medical Power of Outpatient Interviewing Clerk Ciarra Kirill (spouse), Teddy Roy (son) January 04, 2023 6:23pm Name of Medical Power of Outpatient Interviewing Clerk GENA KIRILL January 21, 2023 8:26am Advance Directives Yes September 16 11:11pm Living Will Yes January 21, 2023 8:26am Power of Outpatient Interviewing Clerk Yes January 21 8:26am Advance Directive Response Recorded Date/ Time Name of Medical Power of Outpatient Interviewing Clerk Ciarra Roy (spouse), Teddy Roy (son) January 04, 2023 6:23pm Name of Medical Power of Outpatient Interviewing Clerk Ciarra Regant January 21, 2023 12:23pm Advance Directives Yes September 16 11:11pm Living Will Yes January 21, 2023 12:23pm Power of Outpatient Interviewing Clerk Yes January 21 12:23pm Advance Directive Response Recorded Date/ Time Name of Medical Power of Outpatient Interviewing Clerk Ciarra Roy (spouse), Teddy Roy (son) January 04, 2023 6:23pm Name of Medical Power of Outpatient Interviewing Clerk Ciarra Roy (spouse) January 27, 2023 6:04pm Advance Directives Yes September 16 11:11pm Living Will Yes January 27, 2023 6:04pm Power of Outpatient Interviewing Clerk Yes January 27 6:04pm Name of Medical Power of Outpatient Interviewing Clerk Ciarra Regant January 21, 2023 12:23pm Advance Directive Response Recorded Date/ Time Name of Medical Power of Outpatient Interviewing Clerk Ciarra Roy (spouse), Teddy Roy (son) January 04, 2023 6:23pm Name of Medical Power of Outpatient Interviewing Clerk Ciarra Regant January 27, 2023 9:40pm Name of Medical Power of Outpatient Interviewing Clerk Ciarra Robison, February 10, 2023 9:27pm Advance Directives Yes September 16 11:11pm Living Will Yes February 10, 2023 9:27pm Power of Outpatient Interviewing Clerk Yes February 10 9:27pm Name of Medical Power of Outpatient Interviewing Clerk Ciarrazamzam Regant January 21, 2023 12:23pm Advance Directive Response Recorded Date/ Time Name of Medical Power of Outpatient Interviewing Clerk Ciarra Roy (spouse), Teddy Roy (son) January 04, 2023 6:23pm Name of Medical Power of Outpatient Interviewing Clerk Ciarra Regant January 27, 2023 9:40pm Name of Medical Power of Outpatient Interviewing Clerk Ciarra Horse, February 10, 2023 9:27pm Name of Medical Power of Outpatient Interviewing Clerk Ciarra MEEKS, February 11, 2023 4:25pm Advance Directives Yes September 16 11:11pm Living Will Yes February 11, 2023 4:25pm Power of Outpatient Interviewing Clerk Yes February 11 4:25pm Name of Medical Power of Outpatient Interviewing Clerk Ciarra Roy January 21, 2023 12:23pm Advance Directive Response Recorded Date/ Time Name of Medical Power of Outpatient Interviewing Clerk Ciarra Roy (spouse), Tedyd Roy (son) January 04, 2023 6:23pm Name of Medical Power of Outpatient Interviewing Clerk Ciarra Roy January 27, 2023 9:40pm Name of Medical Power of Outpatient Interviewing Clerk Ciarra Robison, February 10, 2023 9:27pm Name of Medical Power of Outpatient Interviewing Clerk Ciarra MEEKS, February 11, 2023 8:40pm Advance Directives Yes September 16 11:11pm Living Will Yes February 11, 2023 8:40pm Power of Outpatient Interviewing Clerk Yes February 11 8:40pm Name of Medical Power of Outpatient Interviewing Clerk Ciarra Roy January 21, 2023 12:23pm Advance Directive Response Recorded Date/ Time Name of Medical Power of Outpatient Interviewing Clerk Ciarra Roy January 27, 2023 9:40pm Name of Medical Power of Outpatient Interviewing Clerk Ciarra Robison, February 10, 2023 9:27pm Name of Medical Power of Outpatient Interviewing Clerk JEANNA, Ciarra, w david February 11, 2023 8:40pm Advance Directives Yes September 16 11:11pm Living Will Yes February 11, 2023 8:40pm Power of Outpatient Interviewing Clerk Yes February 11 8:40pm Name of Medical Power of Outpatient Interviewing Clerk Ciarra Roy January 21, 2023 12:23pm Advance Directive Response Recorded Date/ Time Name of Medical Power of Outpatient Interviewing Clerk Ciarra Roy January 27, 2023 8:40pm Name of Medical Power of Outpatient Interviewing Clerk Ciarra Robison, February 10, 2023 8:27pm Name of Medical Power of Outpatient Interviewing Clerk JEANNA, Ciarra, w david February 11, 2023 7:40pm Advance Directives Yes September 16 10:11pm Living Will Yes February 11, 2023 7:40pm Power of Outpatient Interviewing Clerk Yes February 11 7:40pm Name of Medical Power of Outpatient Interviewing Clerk Ciarra Roy January 21, 2023 11:23am Advance Directive Response Recorded Date/ Time Name of Medical Power of Outpatient Interviewing Clerk Ciarra Roy January 27, 2023 8:40pm Name of Medical Power of Outpatient Interviewing Clerk Ciarra Robison, February 10, 2023 8:27pm Name of Medical Power of Outpatient Interviewing Clerk Ciarra MEEKS, freddy david February 11, 2023 7:40pm Advance Directives Yes September 16 10:11pm Living Will No May 30, 2 023 11:36am Power of Outpatient Interviewing Clerk No May 30, 2023 11:36am Advance Directive Response Recorded Date/ Time Advance Directives Yes September 16 10:11pm Living Will No May 30, 2 023 11:36am Power of Outpatient Interviewing Clerk No May 30, 2023 11:36am Advance Directive Response Recorded Date/ Time Advance Directives Yes September 16 11:11pm Living Will No May 30, 2 023 12:36pm Power of Outpatient Interviewing Clerk No May 30, 2023 12:36pm Advance Directive Response Recorded Date/ Time Advance Directives Yes September 16 11:11pm Advance Directive Response Recorded Date/ Time Do you have a Healthcare Power of Outpatient Interviewing Clerk? Yes February 02, 2025 7:49pm Advance Directives Yes September 16 11:11pm Advance Directive Response Recorded Date/ Time Do you have a Healthcare Power of Outpatient Interviewing Clerk? Yes February 03, 2025 1:28am Advance Directives Yes September 16 11:11pm Advance Directive Response Recorded Date/ Time Do you have a Healthcare Power of Outpatient Interviewing Clerk? Yes February 03, 2025 1:28am Do you have a Healthcare Power of Outpatient Interviewing Clerk? Yes February 27, 2025 6:33pm Advance Directives Yes September 16 11:11pm Medications [...] wk fu / ANA @ 1:30 LABWORK CORRECTION LAB WORK CORRECTION [...] LABWORK LABWORK LABWORK 6 M FU LABWORK CORRECTION LAB WORK Reason for Visit [...] M FU October 12, 2024 1:0 9pm CORRECTION LAB WORK November 24, 2024 5:0 0am CORRECTION LAB WORK December 16, 2024 4:0 0am CORRECTION LAB WORK December 22, 2024 5: 00am [...] 2025 11:1 2pm Chief Complaint Admit Date CORRECTION LAB WORK November 24, 2024 5:0 0am CORRECTION LAB WORK December 16, 2024 4:0 0am CORRECTION LAB WORK December 22, 2024 5: 00am [...] with foot ulcer February 02, 2025 11:12pm Chief Complaint Admit Date CORRECTION LAB WORK November 24, 2024 5:0 0am CORRECTION LAB WORK December 16, 2024 4:0 0am CORRECTION LAB WORK December 22, 2024 5: 00am [...] L DIABETIC FOOT WOUND/ULCER February 092024 6:08pm PREOP February 10, 2025 5:10 am PNA, L DIABETIC FOOT WOUND/ULCER February 102024 9:42am PNA, L DIABETIC FOOT WOUND/ULCER February 102024 6:20pm PNA, L DIABETIC FOOT WOUND/ULCER February 112024 8:39am PNA, L DIABETIC FOOT WOUND/ULCER February 112024 9:22am LABWORK February 15, 2025 5:0 0am LABWORK February 17, 2025 5:0 0am LABWORK February 18, 2025 5:0 0am lethargic February 27, 2025 6: 24pm Family History No Family History Records Found [...] Diagnoses Driving safety issue Procedures CONSULT TO SPACE BUYER OCCUPATIONAL THERAPY EVAL HIGH COMPLEX 60 MINS Jojo Kaur MD [address] [place] [address] [facility] [address] [address] Referral ID Status Reason Start Date Expiration Date Visits Requested Visits Authorized [id number] Authorized PCP Requested Referral Auto-Generate d Referral 09/07/2022 09/07/2023 99 99 Specialty Diagnoses / Procedures Referred By Linn carrillo Referred To Contact [facility] Diagnoses Polyneuropathy Procedures CONSULT TO PHYSICAL THERAPY PHYSICAL THERAPY EVALUATION HIGH COMPLEX 45 MINS Jojo Kaur MD [address] [place] [address] [facility] [address] [address] Referral ID Status Reason Start Date Expiration Date Visits Requested Visits Authorized [id number] Authorized PCP Requested Referral Auto-Generate d Referral 04/17/2022 04/17/2023 99 99 Specialty Diagnoses / Procedures Referred By Contac t Referred To Contact Psychology Diagnoses Generalized anxiety disorder Procedures CONSULT TO PSYCHOLOGY OFFICE/OUTPATIENT [facility] 60-74 MINUTES oJjo Kaur MD [address] [place] [address] Referral ID Status Reason Start Date Expiration Date Visits Requested Visits Authorized [id number] Pending Review PCP Requested Referral 04/17/2022 04/17/2023 1 1 Specialty Diagnoses / Procedures Referred By Contac t Referred To Contact Podiatry Diagnoses Type 2 diabetes mellitus with diabetic neuropathy, with long-term current use of insulin (HCC) Procedures CONSULT TO PODIATRY OFFICE/OUTPATIENT [facility] 60-74 MINUTES PodlogRoselia hernandez APRN.[facility] [address] [place] [address] Referral ID Status Reason Start Date Expiration Date Visits Requested Visits Authorized [id number] Authorized PCP Requested Referral 01/12/2022 01/11/2023 1 1 Specialty Diagnoses / Procedures Referred By Contac t Referred To Contact [facility] Diagnoses Altered mental status, unspecified altered mental status type Procedures CONSULT TO SPEECH THERAPY OFFICE/OUTPATIENT [facility] 60-74 MINUTES Jojo Kaur MD [address] [place] [address] [facility] [address] [address] Referral ID Status Reason Start Date Expiration Date Visits Requested Visits Authorized [id number] Authorized Auto-Generat ed Referral 01/05/2022 01/05/2023 99 99 Specialty Diagnoses / Procedures Referred By Contac t Referred To Contact [facility] Diagnoses Abnormality of gait due to impairment of balance Procedures CONSULT TO PHYSICAL THERAPY PHYSICAL THERAPY EVALUATION HIGH COMPLEX 45 MINS Jojo Kaur MD [address] [place] [address] [facility] [place] [address] [place] [address] Referral ID Status Reason Start Date Expiration Date Visits Requested Visits Authorized [id number] Authorized PCP Requested Referral Auto-Generate d Referral 01/05/2022 01/05/2023 99 99 Specialty Diagnoses / Procedures Referred By Contac t Referred To Contact [facility] Diagnoses Altered mental status, unspecified altered mental status type Procedures EPIL EEG ROUTINE ELECTROENCEPHALOGRAM REC COMA/SLEEP ONLY Jojo Kaur MD [address] [place] [address] [facility] [place] [address] [place] [id number] Referral ID Status Reason Start Date Expiration Date Visits Requested Visits Authorized [id number] Authorized Auto-Generat ed Referral 01/05/2022 01/05/2023 1 1 Specialty Diagnoses / Procedures Referred By Contac t Referred To Contact Neurology Diagnoses Altered mental status, unspecified altered mental status type Procedures CONSULT TO NEUROLOGY OFFICE/OUTPATIENT [facility] 60-74 MINUTES Abdulaziz Caldera MD [address] [place] [address] Referral ID Status Reason Start Date Expiration Date Visits Requested Visits Authorized [id number] Authorized PCP Requested Referral 01/01/2022 01/01/2023 1 1 Summary Purpose Additional Source Comments Source Comments (unrecognize d section and content) In the event this informatio n is protected by the Federal Confidentiality of Alcohol and Drug Abuse Patient Records regulations: The Federal rules restrict any use of the information to criminally investigate or prosecute any alcohol or drug abuse patient.[facility] the event this information is protected by the Federal Confidentiality of Alcohol and Drug Abuse Patient Records regulations: The Federal rules restrict any use of the information to criminally investigate or prosecute any alcohol or drug abuse patient.[facility] the event this information is protected by the Federal Confidentiality of Alcohol and Drug Abuse Patient Records regulations: The Federal rules restrict any use of the information to criminally investigate or prosecute any alcohol or drug abuse patient.[facility] the event this information is protected by the Federal Confidentiality of Alcohol and Drug Abuse Patient Records regulations: The Federal rules restrict any use of the information to criminally investigate or prosecute any alcohol or drug abuse patient.[facility] HospitalIn the event this information is protected by the Federal Confidentiality of Alcohol and Drug Abuse Patient Records regulations: The Federal rules restrict any use of the information to criminally investigate or prosecute any alcohol or drug abuse patient.[facility] HospitalIn the event this information is protected by the Federal Confidentiality of Alcohol and Drug Abuse Patient Records regulations: The Federal rules restrict any use of the information to criminally investigate or prosecute any alcohol or drug abuse patient.[facility] HospitalIn the event this information is protected by the Federal Confidentiality of Alcohol and Drug Abuse Patient Records regulations: The Federal rules restrict any use of the information to criminally investigate or prosecute any alcohol or drug abuse patient.[facility] HospitalIn the event this information is protected by the Federal Confidentiality of Alcohol and Drug Abuse Patient Records regulations: The Federal rules restrict any use of the information to criminally investigate or prosecute any alcohol or drug abuse patient.[facility] HospitalIn the event this information is protected by the Federal Confidentiality of Alcohol and Drug Abuse Patient Records regulations: The Federal rules restrict any use of the information to criminally investigate or prosecute any alcohol or drug abuse patient.[facility] HospitalIn the event this information is protected by the Federal Confidentiality of Alcohol and Drug Abuse Patient Records regulations: The Federal rules restrict any use of the information to criminally investigate or prosecute any alcohol or drug abuse patient.[facility] HospitalIn the event this information is protected by the Federal Confidentiality of Alcohol and Drug Abuse Patient Records regulations: The Federal rules restrict any use of the information to criminally investigate or prosecute any alcohol or drug abuse patient.[facility] HospitalIn the event this information is protected by the Federal Confidentiality of Alcohol and Drug Abuse Patient Records regulations: The Federal rules restrict any use of the information to criminally investigate or prosecute any alcohol or drug abuse patient.[facility] HospitalIn the event this information is protected by the Federal Confidentiality of Alcohol and Drug Abuse Patient Records regulations: The Federal rules restrict any use of the information to criminally investigate or prosecute any alcohol or drug abuse patient.[facility] HospitalIn the event this information is protected by the Federal Confidentiality of Alcohol and Drug Abuse Patient Records regulations: The Federal rules restrict any use of the information to criminally investigate or prosecute any alcohol or drug abuse patient.[facility] HospitalIn the event this information is protected by the Federal Confidentiality of Alcohol and Drug Abuse Patient Records regulations: The Federal rules restrict any use of the information to criminally investigate or prosecute any alcohol or drug abuse patient.[facility] HospitalIn the event this information is protected by the Federal Confidentiality of Alcohol and Drug Abuse Patient Records regulations: The Federal rules restrict any use of the information to criminally investigate or prosecute any alcohol or drug abuse patient.[facility] HospitalIn the event this information is protected by the Federal Confidentiality of Alcohol and Drug Abuse Patient Records regulations: The Federal rules restrict any use of the information to criminally investigate or prosecute any alcohol or drug abuse patient.[facility] HospitalIn the event this information is protected by the Federal Confidentiality of Alcohol and Drug Abuse Patient Records regulations: The Federal rules restrict any use of the information to criminally investigate or prosecute any alcohol or drug abuse patient.[facility] HospitalIn the event this information is protected by the Federal Confidentiality of Alcohol and Drug Abuse Patient Records regulations: The Federal rules restrict any use of the information to criminally investigate or prosecute any alcohol or drug abuse patient.[facility] HospitalIn the event this information is protected by the Federal Confidentiality of Alcohol and Drug Abuse Patient Records regulations: The Federal rules restrict any use of the information to criminally investigate or prosecute any alcohol or drug abuse patient.[facility] HospitalIn the event this information is protected by the Federal Confidentiality of Alcohol and Drug Abuse Patient Records regulations: The Federal rules restrict any use of the information to criminally investigate or prosecute any alcohol or drug abuse patient.[facility] HospitalIn the event this information is protected by the Federal Confidentiality of Alcohol and Drug Abuse Patient Records regulations: The Federal rules restrict any use of the information to criminally investigate or prosecute any alcohol or drug abuse patient.[facility] HospitalIn the event this information is protected by the Federal Confidentiality of Alcohol and Drug Abuse Patient Records regulations: The Federal rules restrict any use of the information to criminally investigate or prosecute any alcohol or drug abuse patient.[facility] HospitalIn the event this information is protected by the Federal Confidentiality of Alcohol and Drug Abuse Patient Records regulations: The Federal rules restrict any use of the information to criminally investigate or prosecute any alcohol or drug abuse patient.[facility] HospitalIn the event this information is protected by the Federal Confidentiality of Alcohol and Drug Abuse Patient Records regulations: The Federal rules restrict any use of the information to criminally investigate or prosecute any alcohol or drug abuse patient.[facility] HospitalIn the event this information is protected by the Federal Confidentiality of Alcohol and Drug Abuse Patient Records regulations: The Federal rules restrict any use of the information to criminally investigate or prosecute any alcohol or drug abuse patient.[facility] HospitalIn the event this information is protected by the Federal Confidentiality of Alcohol and Drug Abuse Patient Records regulations: The Federal rules restrict any use of the information to criminally investigate or prosecute any alcohol or drug abuse patient.[facility] HospitalIn the event this information is protected by the Federal Confidentiality of Alcohol and Drug Abuse Patient Records regulations: The Federal rules restrict any use of the information to criminally investigate or prosecute any alcohol or drug abuse patient.[facility] HospitalIn the event this information is protected by the Federal Confidentiality of Alcohol and Drug Abuse Patient Records regulations: The Federal rules restrict any use of the information to criminally investigate or prosecute any alcohol or drug abuse patient.[facility] HospitalIn the event this information is protected by the Federal Confidentiality of Alcohol and Drug Abuse Patient Records regulations: The Federal rules restrict any use of the information to criminally investigate or prosecute any alcohol or drug abuse patient.[facility] HospitalIn the event this information is protected by the Federal Confidentiality of Alcohol and Drug Abuse Patient Records regulations: The Federal rules restrict any use of the information to criminally investigate or prosecute any alcohol or drug abuse patient.[facility] HospitalIn the event this information is protected by the Federal Confidentiality of Alcohol and Drug Abuse Patient Records regulations: The Federal rules restrict any use of the information to criminally investigate or prosecute any alcohol or drug abuse patient.[facility] HospitalIn the event this information is protected by the Federal Confidentiality of Alcohol and Drug Abuse Patient Records regulations: The Federal rules restrict any use of the information to criminally investigate or prosecute any alcohol or drug abuse patient.[facility] HospitalIn the event this information is protected by the Federal Confidentiality of Alcohol and Drug Abuse Patient Records regulations: The Federal rules restrict any use of the information to criminally investigate or prosecute any alcohol or drug abuse patient.[facility] HospitalIn the event this information is protected by the Federal Confidentiality of Alcohol and Drug Abuse Patient Records regulations: The Federal rules restrict any use of the information to criminally investigate or prosecute any alcohol or drug abuse patient.[facility] HospitalIn the event this information is protected by the Federal Confidentiality of Alcohol and Drug Abuse Patient Records regulations: The Federal rules restrict any use of the information to criminally investigate or prosecute any alcohol or drug abuse patient.[facility] HospitalIn the event this information is protected by the Federal Confidentiality of Alcohol and Drug Abuse Patient Records regulations: The Federal rules restrict any use of the information to criminally investigate or prosecute any alcohol or drug abuse patient.[facility] HospitalIn the event this information is protected by the Federal Confidentiality of Alcohol and Drug Abuse Patient Records regulations: The Federal rules restrict any use of the information to criminally investigate or prosecute any alcohol or drug abuse patient.[facility] HospitalIn the event this information is protected by the Federal Confidentiality of Alcohol and Drug Abuse Patient Records regulations: The Federal rules restrict any use of the information to criminally investigate or prosecute any alcohol or drug abuse patient.[facility] HospitalIn the event this information is protected by the Federal Confidentiality of Alcohol and Drug Abuse Patient Records regulations: The Federal rules restrict any use of the information to criminally investigate or prosecute any alcohol or drug abuse patient.[facility] HospitalIn the event this information is protected by the Federal Confidentiality of Alcohol and Drug Abuse Patient Records regulations: The Federal rules restrict any use of the information to criminally investigate or prosecute any alcohol or drug abuse patient.[facility] HospitalIn the event this information is protected by the Federal Confidentiality of Alcohol and Drug Abuse Patient Records regulations: The Federal rules restrict any use of the information to criminally investigate or prosecute any alcohol or drug abuse patient.[facility] HospitalIn the event this information is protected by the Federal Confidentiality of Alcohol and Drug Abuse Patient Records regulations: The Federal rules restrict any use of the information to criminally investigate or prosecute any alcohol or drug abuse patient.[facility] HospitalIn the event this information is protected by the Federal Confidentiality of Alcohol and Drug Abuse Patient Records regulations: The Federal rules restrict any use of the information to criminally investigate or prosecute any alcohol or drug abuse patient.[facility] HospitalIn the event this information is protected by the Federal Confidentiality of Alcohol and Drug Abuse Patient Records regulations: The Federal rules restrict any use of the information to criminally investigate or prosecute any alcohol or drug abuse patient.[facility] HospitalIn the event this information is protected by the Federal Confidentiality of Alcohol and Drug Abuse Patient Records regulations: The Federal rules restrict any use of the information to criminally investigate or prosecute any alcohol or drug abuse patient.[facility] HospitalIn the event this information is protected by the Federal Confidentiality of Alcohol and Drug Abuse Patient Records regulations: The Federal rules restrict any use of the information to criminally investigate or prosecute any alcohol or drug abuse patient.[facility] HospitalIn the event this information is protected by the Federal Confidentiality of Alcohol and Drug Abuse Patient Records regulations: The Federal rules restrict any use of the information to criminally investigate or prosecute any alcohol or drug abuse patient.[facility] HospitalIn the event this information is protected by the Federal Confidentiality of Alcohol and Drug Abuse Patient Records regulations: The Federal rules restrict any use of the information to criminally investigate or prosecute any alcohol or drug abuse patient.[facility] HospitalIn the event this information is protected by the Federal Confidentiality of Alcohol and Drug Abuse Patient Records regulations: The Federal rules restrict any use of the information to criminally investigate or prosecute any alcohol or drug abuse patient.[facility] HospitalIn the event this information is protected by the Federal Confidentiality of Alcohol and Drug Abuse Patient Records regulations: The Federal rules restrict any use of the information to criminally investigate or prosecute any alcohol or drug abuse patient.[facility] HospitalIn the event this information is protected by the Federal Confidentiality of Alcohol and Drug Abuse Patient Records regulations: The Federal rules restrict any use of the information to criminally investigate or prosecute any alcohol or drug abuse patient.[facility] HospitalIn the event this information is protected by the Federal Confidentiality of Alcohol and Drug Abuse Patient Records regulations: The Federal rules restrict any use of the information to criminally investigate or prosecute any alcohol or drug abuse patient.[facility] HospitalIn the event this information is protected by the Federal Confidentiality of Alcohol and Drug Abuse Patient Records regulations: The Federal rules restrict any use of the information to criminally investigate or prosecute any alcohol or drug abuse patient.[facility] HospitalIn the event this information is protected by the Federal Confidentiality of Alcohol and Drug Abuse Patient Records regulations: The Federal rules restrict any use of the information to criminally investigate or prosecute any alcohol or drug abuse patient.[facility] HospitalIn the event this information is protected by the Federal Confidentiality of Alcohol and Drug Abuse Patient Records regulations: The Federal rules restrict any use of the information to criminally investigate or prosecute any alcohol or drug abuse patient.[facility] HospitalIn the event this information is protected by the Federal Confidentiality of Alcohol and Drug Abuse Patient Records regulations: The Federal rules restrict any use of the information to criminally investigate or prosecute any alcohol or drug abuse patient.[facility] HospitalIn the event this information is protected by the Federal Confidentiality of Alcohol and Drug Abuse Patient Records regulations: The Federal rules restrict any use of the information to criminally investigate or prosecute any alcohol or drug abuse patient.[facility] HospitalIn the event this information is protected by the Federal Confidentiality of Alcohol and Drug Abuse Patient Records regulations: The Federal rules restrict any use of the information to criminally investigate or prosecute any alcohol or drug abuse patient.[facility] HospitalIn the event this information is protected by the Federal Confidentiality of Alcohol and Drug Abuse Patient Records regulations: The Federal rules restrict any use of the information to criminally investigate or prosecute any alcohol or drug abuse patient.[facility] HospitalIn the event this information is protected by the Federal Confidentiality of Alcohol and Drug Abuse Patient Records regulations: The Federal rules restrict any use of the information to criminally investigate or prosecute any alcohol or drug abuse patient.[facility] HospitalIn the event this information is protected by the Federal Confidentiality of Alcohol and Drug Abuse Patient Records regulations: The Federal rules restrict any use of the information to criminally investigate or prosecute any alcohol or drug abuse patient.[facility] HospitalIn the event this information is protected by the Federal Confidentiality of Alcohol and Drug Abuse Patient Records regulations: The Federal rules restrict any use of the information to criminally investigate or prosecute any alcohol or drug abuse patient.[facility] HospitalIn the event this information is protected by the Federal Confidentiality of Alcohol and Drug Abuse Patient Records regulations: The Federal rules restrict any use of the information to criminally investigate or prosecute any alcohol or drug abuse patient.[facility] HospitalIn the event this information is protected by the Federal Confidentiality of Alcohol and Drug Abuse Patient Records regulations: The Federal rules restrict any use of the information to criminally investigate or prosecute any alcohol or drug abuse patient.[facility] HospitalIn the event this information is protected by the Federal Confidentiality of Alcohol and Drug Abuse Patient Records regulations: The Federal rules restrict any use of the information to criminally investigate or prosecute any alcohol or drug abuse patient.[facility] HospitalIn the event this information is protected by the Federal Confidentiality of Alcohol and Drug Abuse Patient Records regulations: The Federal rules restrict any use of the information to criminally investigate or prosecute any alcohol or drug abuse patient.[facility] HospitalIn the event this information is protected by the Federal Confidentiality of Alcohol and Drug Abuse Patient Records regulations: The Federal rules restrict any use of the information to criminally investigate or prosecute any alcohol or drug abuse patient.[facility] HospitalIn the event this information is protected by the Federal Confidentiality of Alcohol and Drug Abuse Patient Records regulations: The Federal rules restrict any use of the information to criminally investigate or prosecute any alcohol or drug abuse patient.[facility] HospitalIn the event this information is protected by the Federal Confidentiality of Alcohol and Drug Abuse Patient Records regulations: The Federal rules restrict any use of the information to criminally investigate or prosecute any alcohol or drug abuse patient.[facility] HospitalIn the event this information is protected by the Federal Confidentiality of Alcohol and Drug Abuse Patient Records regulations: The Federal rules restrict any use of the information to criminally investigate or prosecute any alcohol or drug abuse patient.[facility] HospitalIn the event this information is protected by the Federal Confidentiality of Alcohol and Drug Abuse Patient Records regulations: The Federal rules restrict any use of the information to criminally investigate or prosecute any alcohol or drug abuse patient.[facility] HospitalIn the event this information is protected by the Federal Confidentiality of Alcohol and Drug Abuse Patient Records regulations: The Federal rules restrict any use of the information to criminally investigate or prosecute any alcohol or drug abuse patient.[facility] HospitalIn the event this information is protected by the Federal Confidentiality of Alcohol and Drug Abuse Patient Records regulations: The Federal rules restrict any use of the information to criminally investigate or prosecute any alcohol or drug abuse patient.[facility] HospitalIn the event this information is protected by the Federal Confidentiality of Alcohol and Drug Abuse Patient Records regulations: The Federal rules restrict any use of the information to criminally investigate or prosecute any alcohol or drug abuse patient.[facility] HospitalIn the event this information is protected by the Federal Confidentiality of Alcohol and Drug Abuse Patient Records regulations: The Federal rules restrict any use of the information to criminally investigate or prosecute any alcohol or drug abuse patient.[facility] HospitalIn the event this information is protected by the Federal Confidentiality of Alcohol and Drug Abuse Patient Records regulations: The Federal rules restrict any use of the information to criminally investigate or prosecute any alcohol or drug abuse patient.[facility] HospitalIn the event this information is protected by the Federal Confidentiality of Alcohol and Drug Abuse Patient Records regulations: The Federal rules restrict any use of the information to criminally investigate or prosecute any alcohol or drug abuse patient.[facility] HospitalIn the event this information is protected by the Federal Confidentiality of Alcohol and Drug Abuse Patient Records regulations: The Federal rules restrict any use of the information to criminally investigate or prosecute any alcohol or drug abuse patient.[facility] Reason for Visit (unrecogniz ed section and content) Reason Comments PT Discharge Specialty Diagnoses / Procedures Referred By Contcarlos t Referred To Contact [facility] Diagnoses Abnormality of gait due to impairment of balance Procedures CONSULT TO PHYSICAL THERAPY PHYSICAL THERAPY EVALUATION HIGH COMPLEX 45 MINS Jojo Kaur MD [address] [place] [address] [facility] [place] [address] [place] [address] Referral ID Status Reason Start Date Expiration Date Visits Requested Visits Authorized [id number] Authorized PCP Requested Referral Auto-Generate d Referral [...] 6 mo Reason Comments Hospital Follow Up [facility] discharged Reason Comments Results Reason Comments Consult altered mental statu s Specialty Diagnoses / Procedures Referred By Contac t Referred To Contact Neurology Diagnoses Altered mental status, unspecified altered mental status type Procedures CONSULT TO NEUROLOGY OFFICE/OUTPATIENT [facility] MDM 60-74 MINUTES Abdulaziz Caldera MD [address] [place] [address] Referral ID Status Reason Start Date Expiration Date V isits Requested Visits Authorized [id number] Closed PCP Requested Referral 01/01/2022 01/01/2023 1 [...] Nursing Plan of Care Update Reason Comments [facility] HH PT POC Reason Comments OT plan of care Reason Onset Date Comments Refill Request 07/25/2022 Reason Comments Home Health-Nursing Update Reason Onset Date Comments Anticoagulation 07/31/2022 Specialty Diagnoses / Procedures Referred By Linn carrillo Referred To Contact Ent - Otolaryngology Diagnoses Chronic frontal sinusitis Procedures CONSULT TO ENT OFFICE/OUTPATIENT NEW HIGH MDM 60-74 MINUTES Abdulaziz Caldera MD [address] [place] [address] Referral ID Status Reason Start Date Expiration Date V isits Requested Visits Authorized [id number] Closed PCP Requested Referral 07/12/2022 07/12/2023 1 [...] Care Teams (unrecognized sec tion and content) Automatic Profile Shaper Operator Relationship Specialty Start Date End Date Abdulaziz Caldera MD [address] [place], [place] [id number] PCP - General Family Practice 11/23/20 Automatic Profile Shaper Operator Relationship Specialty Start Date End Date Abdulaziz Caldera MD [address] [place], [place] [id number] PCP - General Family Practice 11/23/20 Automatic Profile Shaper Operator Relationship Specialty Start Date End Date Abdulaziz Caldera MD [address] [facility] [place] [address] PCP - General Family Practice 11/23/20 Automatic Profile Shaper Operator Relationship Specialty Start Date End Date Abdulaziz Caldera MD [address] [facility] [place] [address] PCP - General Family Practice 11/23/20 Automatic Profile Shaper Operator Relationship Specialty Start Date End Date Abdulaziz Caldera MD [address] [facility] [place] [address] PCP - General Family Practice 11/23/20 Automatic Profile Shaper Operator Relationship Specialty Start Date End Date Abdulaziz Caldera MD [address] [facility] [place] [address] PCP - General Family Practice 11/23/20 Automatic Profile Shaper Operator Relationship Specialty Start Date End Date Abdulaziz Caldera MD [address] [facility] [place] [address] PCP - General Family Practice 11/23/20 Automatic Profile Shaper Operator Relationship Specialty Start Date End Date Abdulaziz Caldera MD [address] [facility] [place] [address] PCP - General Family Practice 11/23/20 Automatic Profile Shaper Operator Relationship Specialty Start Date End Date Abdulaziz Caldera MD [address] [facility] [place] [address] PCP - General Family Practice 11/23/20 Automatic Profile Shaper Operator Relationship Specialty Start Date End Date Abdulaziz Caldera MD [address] [facility] [place] [address] PCP - General Family Practice 11/23/20 Automatic Profile Shaper Operator Relationship Specialty Start Date End Date Abdulaziz Caldera MD [address] [facility] [place] [address] PCP - General Family Practice 11/23/20 Automatic Profile Shaper Operator Relationship Specialty Start Date End Date Abdulaziz Caldera MD [address] [facility] [place] [address] PCP - General Family Practice 11/23/20 Automatic Profile Shaper Operator Relationship Specialty Start Date End Date Abdulaziz Caldera MD [address] [facility] [place] [address] PCP - General Family Practice 11/23/20 Automatic Profile Shaper Operator Relationship Specialty Start Date End Date Abdulaziz Caldera MD [address] [facility] [place] [address] PCP - General Family Practice 11/23/20 Automatic Profile Shaper Operator Relationship Specialty Start Date End Date Abdulaziz Caldera MD [address] [facility] [place] [address] PCP - General Family Practice 11/23/20 Automatic Profile Shaper Operator Relationship Specialty Start Date End Date Abdulaziz Caldera MD [address] [facility] [place] [address] PCP - General Family Practice 11/23/20 Automatic Profile Shaper Operator Relationship Specialty Start Date End Date Abdulaziz Caldera MD [address] [facility] [place] [address] PCP - General Family Practice 11/23/20 Automatic Profile Shaper Operator Relationship Specialty Start Date End Date Abdulaziz Caldera MD [address] [facility] [place] [address] PCP - General Family Practice 11/23/20 Automatic Profile Shaper Operator Relationship Specialty Start Date End Date Abdulaziz Caldera MD [address] [facility] [place] [address] PCP - General Family Practice 11/23/20 Automatic Profile Shaper Operator Relationship Specialty Start Date End Date Abdulaziz Caldera MD [address] [facility] [place] [address] PCP - General Family Practice 11/23/20 Automatic Profile Shaper Operator Relationship Specialty Start Date End Date Abdulaziz Caldera MD [address] [facility] [place] [address] PCP - General Family Practice 11/23/20 Automatic Profile Shaper Operator Relationship Specialty Start Date End Date Abdulaziz Caldera MD [address] [facility] [place] [address] PCP - General Family Practice 11/23/20 Automatic Profile Shaper Operator Relationship Specialty Start Date End Date Abdulaziz Caldera MD [facility] [place] [address] PCP - General Family Medicine 11/23/20 Automatic Profile Shaper Operator Relationship Specialty Start Date End Date Abdulaziz Caldera MD [facility] [place] [address] PCP - General Family Medicine 11/23/20 Automatic Profile Shaper Operator Relationship Specialty Start Date End Date Abdulaziz Caldera MD [facility] [place] [address] PCP - General Family Medicine 11/23/20 Automatic Profile Shaper Operator Relationship Specialty Start Date End Date Abdulaziz Caldera MD [facility] [place] [address] PCP - General Family Medicine 11/23/20 Automatic Profile Shaper Operator Relationship Specialty Start Date End Date Abdulaziz Caldera MD [facility] [place] [address] PCP - General Family Medicine 11/23/20 Automatic Profile Shaper Operator Relationship Specialty Start Date End Date Abdulaziz Caldera MD [facility] [place] [address] PCP - General Family Medicine 11/23/20 Automatic Profile Shaper Operator Relationship Specialty Start Date End Date Abdulaziz Caldera MD [address] [facility] [place] [address] PCP - General Family Medicine 11/23/20 Automatic Profile Shaper Operator Relationship Specialty Start Date End Date Abdulaziz Caldera MD [address] [facility] [place] [address] PCP - General Family Medicine 11/23/20 Automatic Profile Shaper Operator Relationship Specialty Start Date End Date Abdulaziz Caldera MD [address] [facility] [place] [address] PCP - General Family Medicine 11/23/20 Automatic Profile Shaper Operator Relationship Specialty Start Date End Date Abdulaziz Caldera MD [address] [facility] [place] [address] PCP - General Family Medicine 11/23/20 Automatic Profile Shaper Operator Relationship Specialty Start Date End Date Abdulaziz Caldera MD [address] [facility] [place] [address] PCP - General Family Medicine 11/23/20 Automatic Profile Shaper Operator Relationship Specialty Start Date End Date Abdulaziz Caldera MD [address] [facility] [place] [address] PCP - General Family Medicine 11/23/20 Automatic Profile Shaper Operator Relationship Specialty Start Date End Date Abdulaziz Caldera MD [address] [facility] [place] [address] PCP - General Family Medicine 11/23/20 Automatic Profile Shaper Operator Relationship Specialty Start Date End Date Abdulaziz Caldera MD [address] [facility] [place] [address] PCP - General Family Medicine 11/23/20 Automatic Profile Shaper Operator Relationship Specialty Start Date End Date Abdulaziz Caldera MD [address] [facility] [place] [address] PCP - General Family Medicine 11/23/20 Automatic Profile Shaper Operator Relationship Specialty Start Date End Date Abdulaziz Caldera MD [address] [facility] [place] [address] PCP - General Family Medicine 11/23/20 Automatic Profile Shaper Operator Relationship Specialty Start Date End Date Abdulaziz Caldera MD [address] [facility] [place] [address] PCP - General Family Medicine 11/23/20 Automatic Profile Shaper Operator Relationship Specialty Start Date End Date Abdulaziz Caldera MD [address] [place] [address] PCP - General Family Medicine 11/23/20 Automatic Profile Shaper Operator Relationship Specialty Start Date End Date Abdulaziz Caldera MD [address] [place] [address] PCP - General Family Medicine 11/23/20 Team [...] MD Admit Provider, Attending Provi skip Active Automatic Profile Shaper Operator Relationship Specialty Start Date End Date Abdulaziz Caldera MD [address] [place] [address] PCP - General Family Medicine 11/23/20 Team [...] Hackett , Attending Provider Active Team Status: Inactive Member [...] MD Admit Provider, Attending Prov ider Active Automatic Profile Shaper Operator Relationship Specialty Start Date End Date Abdulaziz Caldera MD [address] [place] [address] PCP - General Family Medicine 11/23/20 Team [...] Admit Provider, Other Provider Active Dr. Yisel Rnedon MD Other Provider Active Dr. Olga Lidia [...] Primary Care Provider Acti ve Dr. Ian Baltaazr MD Attending Provider Activ e Dr. Smith Leija MD Referring Provider Active Team Status: Inactive Member Role Status Dates Dr. Luis Caldera MD Primary Care Provider, Ref erring Provider Active Ann Rodríguez REFERRAL SPECIALIST, REFERRAL SPECIALIST-C Attending Provider Active Team Status: Active [...] Team Status: Active Member Role/Relationship Status Dates AAYUSH Ross Primary Care Provider Active Team Status: Inactive [...] 2025 End: February 11, 2025 Kuldip Cosby REFERRAL SPECIALIST-C Primary Care Provider Active Start: February 02, 2025 End: February 11, 2025 Dr. Karen Aly MD Admit Provider Active St art: February 02, 2025 End: February 11, 2025 Dr. Karen Aly MD Other Provider Active St art: February 02, 2025 End: February 11, 2025 Dr. Kee Mejia DPM Other Provider Active Start: February 02, [...] Active Start: February 03, 2025 Kuldip Cosby REFERRAL SPECIALIST-C Primary Care Provider Active Start: February [...] Active Member Role/Relationship Status Dates Kuldip Cosby REFERRAL SPECIALIST-C Primary Care Provider Active Start: February 03, 2025 Dr. Aneesh Ac MD Attending Provider Active S tart: February 03, 2025 Team Status: Active Member Role/Relationship Status Dates Dr. Nicholas Galarza DO Emergency Provider Active Start: February 04, 2025 Kuldip Cosby , REFERRAL SPECIALIST-C Primary Care Provider Active Start: February [...] Active Start: February 04, 2025 Kuldip Cosby , REFERRAL SPECIALIST-C Primary Care Provider Active Start: February [...] Start: February 05, 2025 Kuldip Cosby , REFERRAL SPECIALIST-C Primary Care Provider Active Start: February [...] Start: February 06, 2025 Kuldip Cosby , REFERRAL SPECIALIST-C Primary Care Provider Active Start: February [...] Active Start: February 07, 2025 Kuldip Cosby REFERRAL SPECIALIST-C Primary Care Provider Active Start: February [...] Active Start: February 08, 2025 Kuldip Cosby REFERRAL SPECIALIST-C Primary Care Provider Active Start: February 08, [...] Active Start: February 09, 2025 Kuldip Cosby , REFERRAL SPECIALIST-C Primary Care Provider Active Start: February 09, [...] Active Start: February 09, 2025 Kuldip Cosby REFERRAL SPECIALIST-C Primary Care Provider Active Start: February 09, [...] Active Start: February 10, 2025 Kuldip Cosby REFERRAL SPECIALIST-C Primary Care Provider Active Start: February [...] Active Start: February 10, 2025 Kuldip Cosby REFERRAL SPECIALIST-C Primary Care Provider Active Start: February [...] Active Start: February 11, 2025 Kuldip Cosby NP-Gabrielle Primary Care Provider Active Start: February 11, [...] Active Start: February 11, 2025 Kuldip Cosby NP-C Primary Care Provider Active Start: February 11, 2025 Dr. Karen Aly MD Admit Provider Active St art: February 11, 2025 Dr. Karen Aly MD Other Provider Active St art: February 11, 2025 Dr. Kee Mejia DPM Other Provider Active Start: February 11, 2025 Dr. Hugo Cervantes MD Attending Provider Active Start: February 11, 2025 Dr. Huog Cervantes MD Other Provider Active Start: February 11, 2025 Dr. Aneesh Ac MD Other Provider Active Start : February 11, 2025 Dr. Smith Leija MD Other Provider Active Start: February 11, 2025 Team Status: Active Member Role/Relationship Status Dates Kuldip Cosby , REFERRAL SPECIALIST-C Primary Care Provider Active Start: February 10, 2025 End: February 10, 2025 Dr. Júnior Chandra MD Attending Provider Active S tart: February 10, 2025 End: February 10, 2025 Dr. Aneesh Ac MD Referring Provider Active S tart: February 10, 2025 End: February 10, 2025 Team Status: Active Member Role/Relationship Status Dates Dr. Nicholas Galarza DO Emergency Provider Active Start: February 10, 2025 Kuldip Cosby , REFERRAL SPECIALIST-C Primary Care Provider Active Start: February [...] Start: February 10, 2025 Kuldip Cosby , REFERRAL SPECIALIST-C Primary Care Provider Active Start: February [...] Active Start: February 11, 2025 Kuldip Cosby , REFERRAL SPECIALIST-C Primary Care Provider Active Start: February [...] Active Start: February 11, 2025 Kuldip Cosby , REFERRAL SPECIALIST-C Primary Care Provider Active Start: February [...] Other Provider Active Start: February 11, 2025 Team Status: Active Member Role/Relationship Status Dates Kuldip Cosby , REFERRAL SPECIALIST-C Primary Care Provider Active Start: February 15, 2025 Walter MAYORGA MD Attending Provider Active S tart: February 15, 2025 Team Status: Active Member Role/Relationship Status Dates Kuldip Cosby , REFERRAL SPECIALIST-C Primary Care Provider Active Start: February 16, 2025 Walter MAYORGA MD Attending Provider Active S tart: February 16, 2025 Team Status: Active Member Role/Relationship Status Dates Kuldip Cosby , REFERRAL SPECIALIST-C Primary Care Provider Active Start: February 17, 2025 Walter MAYORGA MD Attending Provider Active S tart: February 17, 2025 Team Status: Active Member Role/Relationship Status Dates Kuldip Cosby , REFERRAL SPECIALIST-C Primary Care Provider Active Start: February 18, 2025 Walter MAYORGA MD Attending Provider Active S tart: February 18, 2025 Team Status: Active Member Role/Relationship Status Dates Kuldip Cosby , REFERRAL SPECIALIST-C Primary Care Provider Active Start: February 22, 2025 Walter MAYORGA MD Attending Provider Active S tart: February 22, 2025 Team Status: Active Member Role/Relationship Status Dates Kuldip Holdrege , REFERRAL SPECIALIST-C Primary Care Provider Active Start: February 25, 2025 Walter MAYORGA MD Attending Provider Active S tart: February 25, 2025 Team Status: Active Member Role/Relationship Status Dates Kuldip Holdrege , REFERRAL SPECIALIST-C Primary Care Provider Active Start: February 26, 2025 Walter MAYORGA MD Attending Provider Active S tart: February 26, 2025 Team Status: Inactive Member Role/Relationship Status Dates Kuldip Croftley , REFERRAL SPECIALIST-C Primary Care Provider Active Start: February 27, 2025 End: February 28, 2025 Dr. Bennett Troncoso , DO Emergency Provider Active Start: February 27, 2025 End: February 28, 2025 Goals (unrecognized section and content) Goals [...] section and content) DATE CREATED AUTHOR 01/02/2022 [facility] DATE CREATED AUTHOR AUTHOR'S ORGANIZ ATION 02/04/2022 [facility] DATE CREATED AUTHOR AUTHOR'S ORGANIZ ATION 04/19/2022 [facility] ([place]) DATE CREATED AUTHOR AUTHOR'S ORGANIZ ATION 11/07/2024 [facility] DATE CREATED AUTHOR AUTHOR'S ORGANIZ ATION 03/01/2025 [facility] FOR RECORDS PERTAINING TO PATIENTS WHO ARE [...] BE BASED ON THE PRIMARY CLINICAL RECORDS. [facility]. provides no warranty or guarantee of the accuracy or completeness of information in this document.
[2025-03-03 09:43] LABS: CORTISOL AM 10.60 ug/dL (6.02-18.40); Vitamin B12 522 pg/mL (180-914)
== END ==
LOC: OLS.ACH 05:00
PROVIDERS: PCP Nurse Practitioner Adult Health; Visit Provider Internal Medicine
DX: E11.621 Type 2 diabetes mellitus with foot ulcer (principal); B95.62 Methicillin resistant Staphylococcus aureus infection as the cause of diseases classified elsewhere; L97.519 Non-pressure chronic ulcer of other part of right foot with unspecified severity
CPT/HCPCS: 36415; 82533; 82607; 84439; 84443

== ENCOUNTER → 2025-03-16 04:00 | Outpatient (REF) | payer MEDICARE, OTHER, SELFPAY ==
[2025-03-16 08:40] LABS: Hematocrit 37.1 % (40-54); Hemoglobin 12.0 g/dL (13.0-16.5); Mean Corp Hgb Conc 32.3 g/dL (32-36); Mean Corpuscular Volume 85.3 fL (80-94); Mean Platelet Vol. 9.6 fl (6.2-12.0); Platelet Count 207 K/mm3 (150-450); RBC Distribution Width CV 13.8 % (11.6-14.6); RBC Distribution Width SD 43.0 fl (35.1-43.9); Red Blood Count 4.35 M/mm3 (4.6-6.2); White Blood Count 9.5 K/mm3 (4.4-11.0)
[2025-03-16 08:48] LABS: AST(SGOT) 9 U/L (<=37); Alanine Aminotransfer ALT/SGPT 15 U/L (<=46); Albumin, Serum 3.8 g/dL (3.4-4.8); Alkaline Phosphatase 121 U/L (40-129); Anion Gap 10 (5-15); BUN 46 mg/dL (4-19); BUN/Creat Ratio 34.7 RATIO (10-20); Calcium,Total 10.0 mg/dL (7.6-11.0); Carbon Dioxide 26.3 mmol/L (21.0-32.0); Chloride 105 mmol/L (98-108); Globulin 2.5 g/dL (2.2-4.2); Glucose 156 mg/dL (70-99); Potassium 4.1 mmol/L (3.3-5.1)
== END ==
LOC: OLS.ACH 04:00
PROVIDERS: PCP Internal Medicine; Referring Provider Internal Medicine; Visit Provider Internal Medicine
DX: E11.40 Type 2 diabetes mellitus with diabetic neuropathy, unspecified (principal); E11.22 Type 2 diabetes mellitus with diabetic chronic kidney disease; N18.31 Chronic kidney disease, stage 3a
CPT/HCPCS: 36415; 80053; 83036; 85027

== ENCOUNTER → 2025-03-16 | Outpatient (CLI) | payer MEDICARE, OTHER, SELFPAY ==
--- NOTE | 2025-03-16 12:55 | ART_ITS ---
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 Left Segmental Pressures Left brachial= 132mmHg. Left posterior tibial artery = >254mmHg. Left dorsalis pedis artery = >254mmHg. Left digit = 81 mmHg. The left dorsalis pedis waveforms are biphasic. The left posterior tibial artery waveforms are triphasic. Right Segmental Pressures Right brachial= 131mmHg. Right posterior tibial artery = >254mmHg. Right dorsalis pedis artery = 108mmHg. The right dorsalis pedis waveforms are biphasic. The right posterior tibial artery waveforms are triphasic. Indices The right ankle brachial index by the dorsalis pedis is 0.82. The right ankle brachial index by the posterior tibial artery is NC. The left ankle brachial index by the dorsalis pedis is NC. The left ankle brachial index by the posterior tibial artery is NC. The left digital-brachial index is 0.61. VL/Ankle Brachial Index Interpretation Summary Right JOSTIN 0.82, moderate arterial insufficiency. Doppler/PVR waveforms of the r ight ankle moderately diminished at rest. Left JOSTIN not able to be obtained due to non-compressible vessels. Doppler/PVR w aveforms of the left ankle normal at rest. TBI diminished, pedal/digit disease. Ordering Physician: Meghana Cole Referring Physician: Rosita Caro, Walter Performed By: Shirley Jang RVT and Student
--- NOTE | 2025-03-16 12:55 | ADUL_ITS ---
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 Common Femoral Artery, mid = 82.2 cm./sec. Supf. Femoral Artery, prox = 74.8 cm./sec. Supf. Femoral Artery, mid = 65 cm./sec. Supf. Femoral Artery, dist = 42.9 cm./sec. Profunda Femoral Artery = 57.6 cm./sec. Popliteal Artery, mid = 41.7 cm./sec. Post. Tibial Artery, prox = 42.9 cm./sec. Post Tibial Artery, mid = 52.4 cm./sec. Post Tibial Artery, dist. = 57.4 cm./sec. Peroneal Artery, prox = 22.5 cm./sec. Peroneal Artery, mid = 36 cm./sec. Peroneal Artery,dist. = 20.4 cm./sec. Ant.Tibial Artery, prox = 34.6 cm./sec. Ant Tibial Artery, mid = 88.8 cm./sec. Ant. Tibial Artery, distal = 55.6 cm./sec. Procedure Exam performed in department. VL/US Art Duplex Unilat Lower Ext Interpretation Summary Left lower extremity arteries patent with normal velocities and waveforms throu ghout, no evidence of stenosis. Ordering Physician: Meghana Cole Referring Physician: Rosita Caro, Walter Performed By: Shirley Jang RVT
== END | disposition home or self-care (01) ==
PROVIDERS: PCP Internal Medicine; Referring Provider Physician Assistant; Visit Provider Physician Assistant
DX: I73.9 Peripheral vascular disease, unspecified (principal)
CPT/HCPCS: 93922; 93926

== ENCOUNTER → 2025-04-09 05:00 | Outpatient (REF) | payer MEDICARE, OTHER, SELFPAY ==
[2025-04-09 08:06] LABS: Hematocrit 35.6 % (40-54); Hemoglobin 11.8 g/dL (13.0-16.5); Mean Corp Hgb Conc 33.1 g/dL (32-36); Mean Corpuscular Volume 84.4 fL (80-94); Mean Platelet Vol. 9.4 fl (6.2-12.0); Platelet Count 222 K/mm3 (150-450); RBC Distribution Width CV 13.6 % (11.6-14.6); RBC Distribution Width SD 41.8 fl (35.1-43.9); Red Blood Count 4.22 M/mm3 (4.6-6.2); White Blood Count 10.3 K/mm3 (4.4-11.0)
[2025-04-09 08:29] LABS: Anion Gap 12 (5-15); BUN 43 mg/dL (4-19); BUN/Creat Ratio 33.2 RATIO (10-20); Calcium,Total 9.5 mg/dL (7.6-11.0); Carbon Dioxide 24.7 mmol/L (21.0-32.0); Chloride 105 mmol/L (98-108); Glucose 119 mg/dL (70-99); Potassium 3.6 mmol/L (3.3-5.1)
== END ==
LOC: OLS.ACH 05:00
PROVIDERS: PCP Internal Medicine; Visit Provider Internal Medicine
DX: E11.40 Type 2 diabetes mellitus with diabetic neuropathy, unspecified (principal); K26.4 Chronic or unspecified duodenal ulcer with hemorrhage; K92.2 Gastrointestinal hemorrhage, unspecified
CPT/HCPCS: 36415; 80048; 85027

== ENCOUNTER → 2025-04-29 05:00 | Outpatient (REF) | payer MEDICARE, OTHER, SELFPAY ==
--- OUTSIDE RECORDS SUMMARY | 2025-04-29 04:08 | XMS RPT_ITS | CCD ---
Author Organization [facility] Care Team Providers Care Shear Tender Name Role Phone Abdulaziz Caldera MD Primary Care Provider PHYSICIAN, NOT RECORDED Primary Care Physician U Dr. Luis Bajwa Primary Care Provider [phone] Dr. Amada Queen Admit Provider Dr. Amada [...] Dr. Luis Caldera Primary Care Provider [phone] Dr. Syed Allen Emergency Provider Dr. Karen Aly Admit Provider Dr. Karen Aly Other Provider Dr. Yisel Rendon Attending Provider Dr. Yisel Rendon Other Provider Roxann, Dr. Hatfield Attending Provider Dr. Caryl Mcdermott Referring Provider Dr. Júnior Chandra Attending Provider Dr. Júnior Chandra Referring Provider Dr. Dandy Sauer Emergency Provider Dr. Luis Caldera Primary Care Provider [phone] Dr. Syed Allen Emergency Provider Dr. Karen Aly Admit Provider Dr. Karen Aly Other Provider Dr. Yisel Rendon Attending Provider Dr. Yisel Rendon Other Provider Dr. Olga Lidia Rasheed Other Provider Dr. Lusi Caldera Primary Care Provider [phone] Dr. Luis Caldera Referring Provider Debi Wetzel Attending Provider Unavailable Marcos TECHNOLOGY DIRECTOR, TECHNOLOGY DIRECTOR-C Ann Attending Provider Dr. Luis Caldera Primary Care Provider [phone] Dr. Luis Caldrea Referring Provider Dr. Olga Lidia Rasheed Attending [...] Dr. Nicholas Galarza DO Emergency Provider Harjeet TECHNOLOGY DIRECTOR-CKuldip Primary Care Provider Jermain COLBERT, Dr. Karen Juan Admit Provider Jermain COLBERT, Dr. Karen Juan Attending Provider Verenice COLBERT, Dr. Smith Primary Care Provider Rosita COLBERT, Walter Attending Provider Unavailable Rosita COLBERT, Walter Referring Provider Unavailable Dr. Nicholas Galarza DO Emergency Provider Harjeet TECHNOLOGY DIRECTOR-CKuldip Primary Care Provider Jermain COLBERT, Dr. Karen Juan Admit Provider Jermain COLBERT, Dr. Karen Juan Other Provider Roberto SCHUMACHER, Dr. Sweet Other Provider Billy COLBERT, Dr. Hugo Govea Attending Provider Dr. Aneesh Ac MD Other Provider Heladio COLBERT, Dr. Mtz Other Provider Billy COLBERT, Dr. Hugo Govea Other Provider Osorio COLBERT, Dr. Melendrez Attending Provider Douglas LOZA, Meghana Attending Provider Corazon COLBERT, Dr. Callejas Attending Provider Osorio COLBERT, Dr. Melendrez Referring Provider [phone] Karyna DUVALL, Dr. Guajardo Emergency Provider Roberto SCHUMACHER, Dr. Sweet Referring Provider Billy COLBERT, Dr. Hugo Govea Referring Provider [place] TECHNOLOGY DIRECTOR-C, Kuldip Referring Provider Deperro Sr. DO, Dr. Watson Primary Care Provider Karyna DUVALL, Dr. Guajardo Attending Provider Douglas PA, Meghana Referring Provider Alix TECHNOLOGY DIRECTOR-CDeangelo Attending Provider Deperro Sr. DO, Dr. Watson Referring Provider Debi Wetzel Attending Provider Unavailable Verenice COLBERT, Dr. Smith Primary Care Provider Rosita COLBERT, Walter Attending Provider Unavailable Harjeet, Kuldip Referring Unavailable Alix TECHNOLOGY DIRECTORDeangelo Attending Unavailable Deperro Sr., Walter Primary Care Unavailable Deperro Sr., Walter Primary Care Unavailable Corazon, [place] Attending Unavailable Corazon, [place] Referring Unavailable Deperro Sr., Walter Primary Care Unavailable Corazon, Júnior Attending Unavailable Olga Lidia Rasheed Attending Unavailable Luis Caldera Primary Care Unavailable PeaceleyLuis Referring Unavailable [place], Kuldip Primary Care Unavailable Karen Aly Admitting Unavailable Kee Mejia Consulting Unavailable Hugo Cervantes Attending Unavailable Karen Aly Consulting Unavailable Aneesh Ac Consulting Unavailable Hugo Cervantes Consulting Unavailable Aneesh Ac Attending Unavailable Hugo Cervantes Referring Unavailable Smith Leija Consulting Unavailable Harjeet, Kuldip Primary Care Unavailable Osorio, Aneesh Referring Unavailable Corazon, Júnior Attending Unavailable Harjeet, Kuldip Referring Unavailable Harjeet, Kuldip Primary Care Unavailable Roof Deangelo DANIEL Attending Unavailable Aneesh Ac Attending Unavailable Deperro Sr., Walter Primary Care Unavailable Cole, Meghana Referring Unavailable Harjeet, Kuldip Primary Care Unavailable Aneesh Ac Attending Unavailable Kee Mejia Referring Unavailable Karen Aly Attending Unavailable [place], Kuldip Primary Care Unavailable Deperro OLS, Walter Attending Unavailable [place], Kuldip Primary Care Unavailable Deperro OLS, Walter Attending Unavailable [place], Kuldip Primary Care Unavailable Deperro OLS, Walter Attending Unavailable Cole, Meghana Attending Unavailable Deperro OLS, Walter Attending Unavailable Bursley, Luis Primary Care Unavailable Deperro Sr., Walter Primary Care Unavailable Cole, Meghana Referring Unavailable Cole, Meghana Attending Unavailable Bursley, Luis Primary Care Unavailable Deperro OLS, Walter Attending Unavailable Bursley, Luis Primary Care Unavailable Deperro OLS, Walter Attending Unavailable Harjeet, Kuldip Primary Care Unavailable Deperro OLS, Walter Attending Unavailable Harjeet, Kuldip Primary Care Unavailable Deperro OLS, Walter Attending Unavailable Deperro Sr., Walter Primary Care Unavailable Deperro OLS, Walter Attending Unavailable Harjeet, Kuldip Primary Care Unavailable Bennett Troncoso Attending Unavailable Harjeet, Kuldip Primary Care Unavailable Deperro OLS, Walter Attending Unavailable Bursley, Luis Primary Care Unavailable Deperro OLS, Walter Attending Unavailable Bursley, Luis Primary Care Unavailable Deperro OLS, Walter Attending Unavailable Harjeet, Kuldip Primary Care Unavailable Karen Aly Admitting Unavailable Kee Mejia Consulting Unavailable Hugo Cervantes Attending Unavailable Karen Aly Consulting Unavailable Aneesh Ac Consulting Unavailable Smith Leija Consulting Unavailable [place], Kuldip Primary Care Unavailable Deperro OLS, Walter Attending Unavailable [place], Kuldip Primary Care Unavailable Deperro OLS, Walter Attending Unavailable Deperro OLS, Walter Referring Unavailable Bursley, Luis Primary Care Unavailable Deperro OLS, Walter Attending Unavailable Deperro OLS, Walter Referring Unavailable Bursley, Luis Primary Care Unavailable Deperro OLS, Walter Attending Unavailable Deperro OLS, Walter Referring Unavailable Kee Merritt Attending Unavailable Kee Merritt Referring Unavailable Bursley, Luis Primary Care Unavailable Deperro Sr., Walter Primary Care Unavailable Deperro OLS, Walter Attending Unavailable Deperro OLS, Walter Referring Unavailable Luis Caldera Primary Care Unavailable Walter Sanders Attending Unavailable Walter Sanders Referring Unavailable Walter Sanders Attending Unavailable Luis Caldera Primary Care Unavailable Kuldip Cosby Referring Unavailable Walter Becker Sr. Primary Care Unavailable Meghana Cole Attending Unavailable Allergies Allergy Classification Reported Allergen(s) Allergy Type Date of Onset Reaction(s) Facility (20 sources) pantoprazole Drug Allergy 09-24-2019 Diarrhea [facility] (20 sources) Propofol Drug Allergy 12-06-2021 Other [facility] Comment on above: GETS AGGRESSIVE (1 source) Propofol Drug Allergy 03-22-2025 [facility] Repository Medications Current Medications Medication Drug Class(es) Dates Sig (Normalized) Sig (Original) albuterol 0.833 mg/ml / ipratropium bromide 0.167 mg/ml inhalation solution (8 sources) Anticholinergic, beta2-Adrenergic Agonist Start: 02-02-2025 Start: 02-02-2025 take 1 mL by inhalat ion every four hours as needed Ipratropium-Albuterol 0.5 mg-3 mg(2.5 mg base)/3 mL solution for nebulization Active 3 mL INHALATION Q4H as needed for shortness of breath February 02, 2025 12:00am apixaban 5 mg oral tablet (10 sources) Factor Xa Inhibitor Start: 03-03-2024 ascorbic [...] Comment on above: TAKE 1 TABLET BY [facility] ONCE DAILY. FOR CHOLESTEROL. bisacodyl 10 mg rectal suppository (20 sources) Stimulant Laxative Start: 05-30-2023 cholecalciferol 1.25 mg oral tablet (20 sources) Vitamin D Start: 03-22-2025 Start: 01-21-2023 take 1 tablet by mouth [...] Comment on above: Take 1 capsule by [facility] one time a week. clopidogrel 75 mg oral table t (7 sources) P2Y12 Platelet Inhibitor Start: 02-11-2025 docusate sodium 50 mg / sennosides, mcc 8.6 mg oral tablet (12 sources) Start: 01-26-2023 Start: 01-26-2023 take 2 tablets by [facility] twice daily Sennosides-Docusate Sodium (Stool Softener-Stimulant [...] nostril once daily. Rinse mouth after use. guaiFENesin 20 mg/ml oral solution (4 sources) Start: 03-22-2025 Insulin Glargine (Lantus Solostar U-100 Insulin) 100 UNITS/ML insulin pen (2 sources) Start: 05-22-2018 Insulin Glargine (Lantus Solostar U-100 Insulin) 100 UNITS/ML insulin pen Active 24 UNITS SC DAILY May 22, 2018 2:58pm 3 ml insulin lispro 100 unt/ml pen injector (20 sources) Insulin Analog Start: 03-03-2025 Start: 01-21-2023 Start: 05-22-2018 End: 01-08-2023 Start: [...] 09-19-2013 loperamide hydrochloride 2 m g oral tablet (20 sources) Opioid Agonist Start: 03-22-2025 Start: 05-30-2023 End: 02-27-2025 losartan potassium 50 mg ora l tablet [...] hydrochloride 10 mg oral tablet (20 sources) U-ckbqoa-M-aspartate Receptor Antagonist Start: 01-26-2023 End: 02-13-2023 Start: [...] Take 1 tablet by sajan once daily. mupirocin 0.02 mg/mg topical ointment [...] 03-17-2019 PARoxetine hydrochloride 20 mg oral tablet (16 sources) Serotonin Reuptake Inhibitor Start: 02-27-2025 Start: [...] Comment on above: Take 1 capsule by [facility] daily at bedtime. (20 sources) Start: 03-22-2025 Start: 02-27-2025 Start: 10-07-2023 Start: 01-21-2023 End: 03-22-2025 Start: 01-21-2023 Completed/Discontinued Medications Medication Drug Class(es) Dates Sig (Normalized) Sig (Original) acetaminophen 325 mg oral tablet (20 sources) Start: 01-08-2023 End: 03-22-2025 Start: 01-08-2023 End: 10-07-2023 Start: 01-08-2023 End: [...] 08, 2023 12:00am February 11, 2023 8:24pm acetaminophen 325 mg / HYDRO codone bitartrate 5 mg oral tablet (20 sources) [...] 01-26-2023 doxycycline monohydrate 100 mg oral capsule (7 sources) Tetracycline-class Drug Start: 02-11-2025 End: 02-27-2025 [...] units, 301-350=12 units, 351-400=15 units. 5 Each 08/09/2022 Active Comment on above: Inject with meals ac cording to sliding scale: 100-200=3 units, 201-250=5 units, 251-300=8 units, 301-350=12 units, 351-400=15 units. Inject with meals ac cording to sliding scale: 100-200=3 units, 201-250=5 units, 251-300=8 units, 301-350=12 units, 351-400=15 units. Max dose per meal, 15 units. Max dose per day: 45 units. 3 ml insulin glargine 100 unt/ml pen [...] long-term current use of insulin ([facility]) Inject 12 Units subcutaneously daily at bedtime. [...] 12 Units subc utaneously daily at bedtime. lisinopril 20 mg oral tablet (20 sources) Angiotensin Converting Enzyme Inhibitor Start: 09-16-2013 End: 09-19-2013 metFORMIN hydrochloride 1000 mg oral tablet (20 [...] tablet by sajan th daily with breakfast. 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 Coronary atherosclerosis and other heart disease (1 source) Coronary atherosclerosis; Translations: [Atherosclerotic heart disease of [place] coronary artery without angina pectoris] Chronic Deficiency [...] 1 10-26-2020 Chronic Diabetes mellitus without complication (18 sources) Type 2 diabetes mellitus; Translations: [Type 2 diabetes mellitus without complications] 04-07-2024 Chronic Diseases of white blood cells (2 sources) Leukocytosis; Translations: [Elevated white blood cell count, unspecified] Chronic Disorders of lipid metabolism (20 sources) [...] disease, or unspecified chronic kidney disease] Onset: 5 Chronic Infective arthritis and osteomyelitis (except that [...] sources) Long-term current use of anticoagulant; Translations: [long term (current) use of anticoagulants] Onset: 8 11-06-2018 [...] rep air 2006. Peripheral and visceral atherosclerosis (20 sources) Peripheral vascular disease, unspecified; Translations: [Peripheral arterial disease] Onset: 5 02-04-2025 Chronic Pneumonia (except that caused by tuberculosis or sexually transmitted disease) (17 sources) Pneumonia; Translations: [Pneumonia, unspecified organism] Onset: [...] (20 sources) Disorientation, unspecified; Translations: [Unspecified psychosis] Onset: 5 01-04-2023 Episodic Residual codes; unclassified (20 sources) Delirium; Translations: [Disorientation, unspecified] 02-11-2023 Episodic Septicemia (except in labor) (1 source) Sepsis, unspecified organism; Translations: [Sepsis, unspecified organism] Onset: 5 Episodic Shock (1 source) Hemorrhagic shock; Translations: [Other shock] Episodic Skin and subcutaneous tissue infections (15 sources) Cellulitis of left lower limb; Translations: [...] anemia, unspecified] Onset: 03-20-2019 03-20-2019 Episodic Other nervous system disorders (20 sources) Abnormal gait due to impairment of balance; Translations: [Other abnormalities of gait and mobility] Onset: 01-12-2022 Episodic Unclassified (20 sources) RBBB (right bundle 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) 12-27-2021 Results Test Name Value Interpretation Reference Range Facility Basic Metabolic Profile (BMP )on 04-09-2025 BUN/CRE 33.2 RATIO High 10-20 [facility] Comment on above: Order Comment: 215.2 Performed By: #### L 100.0500, L500.2500 ####[facility] [address] [place], [address] Calcium [Mass/Vol] 9.5 mg/dL Normal 7.6-11.0 [facility] Comment on above: Order Comment: 215.2 Performed By: #### L 100.0500, L500.2500 ####[facility] [address] [place], [address] Chloride [Moles/Vol] 105 mmol/L Normal 98-108 [facility] Comment on above: Order Comment: 215.2 Performed By: #### L 100.0500, L500.2500 ####[facility] [address] [place], [address] CO2 [Moles/Vol] 24.7 mmol/L Normal 21.0-32.0 [facility] Comment on above: Order Comment: 215.2 Performed By: #### L 100.0500, L500.2500 ####[facility] [address] [place], [address] Creatinine [Mass/Vol] 1.30 mg/dL High 0.70-1.20 [facility] Comment on above: Order Comment: 215.2 Performed By: #### L 100.0500, L500.2500 ####[facility] [address] [place], [address] GAP 12 Normal 5-15 [facility] Comment on above: Order Comment: 215.2 Performed By: #### L 100.0500, L500.2500 ####[facility] [address] [place], [address] GFR/1.73 sq M.predicted among non-blacks MDRD (S/P/Bld) [Vol rate/Area] 57 mL/min/{1.73_m2} Low >60 [facility] Comment on above: Order Comment: 215.2 Result Comment: mL/m in/1.73m2 CKD-EPI Creatinine Equation (2020) Performed By: #### L 100.0500, L500.2500 ####[facility] [address] [place], [address] Glucose [Mass/Vol] 119 mg/dL High 70-99 [facility] Comment on above: Order Comment: 215.2 Performed By: #### L 100.0500, L500.2500 ####[facility] [address] [place], [address] Potassium [Moles/Vol] 3.6 mmol/L Normal 3.3-5.1 [facility] Comment on above: Order Comment: 215.2 Result Comment: Hemo lysis present, Results??could be affected.?? Performed By: #### L 100.0500, L500.2500 ####[facility] [address] [place], [address] Sodium [Moles/Vol] 141 mmol/L Normal 133-145 [facility] Comment on above: Order Comment: 215.2 Performed By: #### L 100.0500, L500.2500 ####[facility] [address] [place], [address] Urea nitrogen [Mass/Vol] 43 mg/dL High 4-19 [facility] Comment on above: Order Comment: 215.2 Performed By: #### L 100.0500, L500.2500 ####[facility] [address] [place], [address] CBC-Complete Blood Cnt No Di ffon 04-09-2025 Erythrocyte distribution width (RBC) [Ratio] 13.6 % Normal 11.6-14.6 [facility] Comment on above: Order Comment: 215.2 Performed By: #### L 100.0500, L500.2500 ####[facility] [address] [place], [address] Hematocrit (Bld) [Volume fraction] 35.6 % Low 40-54 [facility] Comment on above: Order Comment: 215.2 Performed By: #### L 100.0500, L500.2500 ####[facility] [address] [place], [address] Hemoglobin (Bld) [Mass/Vol] 11.8 g/dL Low 13.0-16. 5 [facility] Comment on above: Order Comment: 215.2 Performed By: #### L 100.0500, L500.2500 ####[facility] [address] [place], [address] MCH (RBC) [Entitic mass] 28.0 pg Normal 27.0-32.0 [facility] Comment on above: Order Comment: 215.2 Performed By: #### L 100.0500, L500.2500 ####[facility] [address] [place], [address] MCHC (RBC) [Mass/Vol] 33.1 g/dL Normal 32-36 [facility] Comment on above: Order Comment: 215.2 Performed By: #### L 100.0500, L500.2500 ####[facility] [address] [place], [address] MCV (RBC) [Entitic vol] 84.4 fL Normal 80-94 [facility] Comment on above: Order Comment: 215.2 Performed By: #### L 100.0500, L500.2500 ####[facility] [address] [place], [address] Platelet mean volume (Bld) [Entitic vol] 9.4 fL Normal 6.2-12.0 [facility] Comment on above: Order Comment: 215.2 Performed By: #### L 100.0500, L500.2500 ####[facility] [address] [place], [address] Platelets (Bld) [#/Vol] 222 10*3/uL Normal 150-450 [facility] Comment on above: Order Comment: 215.2 Performed By: #### L 100.0500, L500.2500 ####[facility] [address] [place], [address] RBC (Bld) [#/Vol] 4.22 10*6/uL Low 4.6-6.2 [facility] Comment on above: Order Comment: 215.2 Performed By: #### L 100.0500, L500.2500 ####[facility] [address] [place], [address] RDW SD 41.8 fl Normal 35.1-43.9 [facility] Comment on above: Order Comment: 215.2 Performed By: #### L 100.0500, L500.2500 ####[facility] [address] [place], [address] WBC (Bld) [#/Vol] 10.3 10*3/uL Normal 4.4-11.0 [facility] Comment on above: Order Comment: 215.2 Performed By: #### L 100.0500, L500.2500 ####[facility] [address] [place], [address] Acid Fast Bacillus Cultureon 03-22-2025 [facility] Comment on above: Performed By: #### M 300.2000, M300.3000 ####[facility] [address] [place], [address] [facility] Comment on above: Performed By: #### M 300.2000, M300.3000 ####[facility] [address] [place], [address] Acid Fast Bacillus Smear/Flu oron 03-22-2025 [facility] Comment on above: Performed By: #### M 300.2000, M300.3000 ####[facility] [address] [place], [address] [facility] Comment on above: Performed By: #### M 300.2000, M300.3000 ####[facility] [address] [place], [address] Cardiology Visit Reporton Cardiology Visit Report Normal [facility] Culture, Fungus 8482on 03-22 CUF Normal [facility] Comment on above: Performed By: #### M 600.2000, M600.2200, M100.2000, M100.3000, M100.4001 ####[facility] [address] [place], [address] CUF [facility] Comment on above: Performed By: #### M 600.2000, M600.2200, M100.2000, M100.3000, M100.4001 ####[facility] [address] [place], [address] Fungus Stain 8136on 03-22-20 25 FUNST Normal [facility] Comment on above: Performed By: #### M 600.2000, M600.2200, M100.2000, M100.3000, M100.4001 ####[facility] [address] [place], [address] FUNST Normal [facility] Comment on above: Performed By: #### M 600.2000, M600.2200, M100.2000, M100.3000, M100.4001 ####[facility] [address] [place], [address] Pacemaker Checkon 03-22-2025 Pacemaker Check Normal [facility] Arterial Doppler ultrasound reportOrdered By: Aneesh Ac on 03-17-2025 Study report [facility] Work Phone: Arterial study reportOrdered By: Aneesh Ac on 03-17-2025 Noninvasive arteriosclerosis study report [facility] Work Phone: Anion gap in Serum or Plasma Ordered By: Walter Becker on 03-16-2025 Anion gap [Moles/Vol] 10 mmol/L 5-15 [facility] Ankle Brachial Indexon 03-16 Ankle Brachial Index Normal [facility] BUN/creatinine ratioOrdered By: Walter Becker on 03-16-2025 Urea nitrogen/Creatinine [Mass ratio] 34.7 mg/mg High 10-20 [facility] Bilirubin, totalOrdered By: Walter Becker on 03-16-2025 Bilirubin [Mass/Vol] 0.48 mg/dL 0.00-1.30 [facility] CBC-Complete Blood Cnt No Di ffon 03-16-2025 Erythrocyte distribution width (RBC) [Ratio] 13.8 % Normal 11.6-14.6 [facility] Comment on above: Order Comment: 215.2 Performed By: #### L 100.0500, L500.4050, L501.9985 ####[facility] [address] [place], [address] Hematocrit (Bld) [Volume fraction] 37.1 % Low 40-54 [facility] Comment on above: Order Comment: 215.2 Performed By: #### L 100.0500, L500.4050, L501.9985 ####[facility] [address] [place], [address] Hemoglobin (Bld) [Mass/Vol] 12.0 g/dL Low 13.0-16. 5 [facility] Comment on above: Order Comment: 215.2 Performed By: #### L 100.0500, L500.4050, L501.9985 ####[facility] [address] [place], [address] MCH (RBC) [Entitic mass] 27.6 pg Normal 27.0-32.0 [facility] Comment on above: Order Comment: 215.2 Performed By: #### L 100.0500, L500.4050, L501.9985 ####[facility] [address] [place], [address] MCHC (RBC) [Mass/Vol] 32.3 g/dL Normal 32-36 [facility] Comment on above: Order Comment: 215.2 Performed By: #### L 100.0500, L500.4050, L501.9985 ####[facility] [address] [place], [address] MCV (RBC) [Entitic vol] 85.3 fL Normal 80-94 [facility] Comment on above: Order Comment: 215.2 Performed By: #### L 100.0500, L500.4050, L501.9985 ####[facility] [address] [place], [address] Platelet mean volume (Bld) [Entitic vol] 9.6 fL Normal 6.2-12.0 [facility] Comment on above: Order Comment: 215.2 Performed By: #### L 100.0500, L500.4050, L501.9985 ####[facility] [address] [place], [address] Platelets (Bld) [#/Vol] 207 10*3/uL Normal 150-450 [facility] Comment on above: Order Comment: 215.2 Performed By: #### L 100.0500, L500.4050, L501.9985 ####[facility] [address] [place], [address] RBC (Bld) [#/Vol] 4.35 10*6/uL Low 4.6-6.2 [facility] Comment on above: Order Comment: 215.2 Performed By: #### L 100.0500, L500.4050, L501.9985 ####[facility] [address] [place], [address] RDW SD 43.0 fl Normal 35.1-43.9 [facility] Comment on above: Order Comment: 215.2 Performed By: #### L 100.0500, L500.4050, L501.9985 ####[facility] [facility] [address] [place], [address] WBC (Bld) [#/Vol] 9.5 10*3/uL Normal 4.4-11.0 [facility] Comment on above: Order Comment: 215.2 Performed By: #### L 100.0500, L500.4050, L501.9985 ####[facility] [address] [place], [address] Carbon dioxide, total [Moles /volume] in Central venous bloodOrdered By: Walter Becker on 03-16-2025 CO2 [Moles/Vol] 26.3 mmol/L 21.0-32.0 [facility] Chloride assayOrdered By: Horner on 03-16-2025 Chloride [Moles/Vol] 105 mmol/L 98-108 [facility] Comprehensive Metabolic Prof ilon 03-16-2025 Albumin [Mass/Vol] 3.8 g/dL Normal 3.4-4.8 [facility] Comment on above: Order Comment: 215.2 Performed By: #### L 100.0500, L500.4050, L501.9985 ####[facility] [address] [place], [address] Albumin/Globulin [Mass ratio] 1.5 {ratio} Normal 0.9-2.4 [facility] Comment on above: Order Comment: 215.2 Performed By: #### L 100.0500, L500.4050, L501.9985 ####[facility] [address] [place], [address] ALK PHOS 121 U/L Normal 40-129 [facility] Comment on above: Order Comment: 215.2 Performed By: #### L 100.0500, L500.4050, L501.9985 ####[facility] [address] [place], [address] ALT [Catalytic activity/Vol] 15 U/L Normal <=46 [facility] Comment on above: Order Comment: 215.2 Performed By: #### L 100.0500, L500.4050, L501.9985 ####[facility] [address] [place], [address] AST [Catalytic activity/Vol] 9 U/L Normal <=37 [facility] Comment on above: Order Comment: 215.2 Performed By: #### L 100.0500, L500.4050, L501.9985 ####[facility] [address] [place], [address] Bilirubin [Mass/Vol] 0.48 mg/dL Normal 0.00-1.30 [facility] Comment on above: Order Comment: 215.2 Performed By: #### L 100.0500, L500.4050, L501.9985 ####[facility] [address] [place], [address] BUN/CRE 34.7 RATIO High 10-20 [facility] Comment on above: Order Comment: 215.2 Performed By: #### L 100.0500, L500.4050, L501.9985 ####[facility] [address] [place], [address] Calcium [Mass/Vol] 10.0 mg/dL Normal 7.6-11.0 [facility] Comment on above: Order Comment: 215.2 Performed By: #### L 100.0500, L500.4050, L501.9985 ####[facility] [address] [place], [address] Chloride [Moles/Vol] 105 mmol/L Normal 98-108 [facility] Comment on above: Order Comment: 215.2 Performed By: #### L 100.0500, L500.4050, L501.9985 ####[facility] [address] [place], [address] CO2 [Moles/Vol] 26.3 mmol/L Normal 21.0-32.0 [facility] Comment on above: Order Comment: 215.2 Performed By: #### L 100.0500, L500.4050, L501.9985 ####[facility] [address] [place], [address] Creatinine [Mass/Vol] 1.33 mg/dL High 0.70-1.20 [facility] Comment on above: Order Comment: 215.2 Performed By: #### L 100.0500, L500.4050, L501.9985 ####[facility] [address] [place], [address] GAP 10 Normal 5-15 [facility] Comment on above: Order Comment: 215.2 Performed By: #### L 100.0500, L500.4050, L501.9985 ####[facility] [address] [place], [address] GFR/1.73 sq M.predicted among non-blacks MDRD (S/P/Bld) [Vol rate/Area] 55 mL/min/{1.73_m2} Low >60 [facility] Comment on above: Order Comment: 215.2 Result Comment: mL/m in/1.73m2 CKD-EPI Creatinine Equation (2020) Performed By: #### L 100.0500, L500.4050, L501.9985 ####[facility] [address] [place], [address] Globulin (S) [Mass/Vol] 2.5 g/dL Normal 2.2-4.2 [facility] Comment on above: Order Comment: 215.2 Performed By: #### L 100.0500, L500.4050, L501.9985 ####[facility] [address] [place], [address] Glucose [Mass/Vol] 156 mg/dL High 70-99 [facility] Comment on above: Order Comment: 215.2 Performed By: #### L 100.0500, L500.4050, L501.9985 ####[facility] [address] [place], [address] Potassium [Moles/Vol] 4.1 mmol/L Normal 3.3-5.1 [facility] Comment on above: Order Comment: 215.2 Performed By: #### L 100.0500, L500.4050, L501.9985 ####[facility] [address] [place], [address] Sodium [Moles/Vol] 141 mmol/L Normal 133-145 [facility] Comment on above: Order Comment: 215.2 Performed By: #### L 100.0500, L500.4050, L501.9985 ####[facility] [address] [place], [address] T PROT 6.3 g/dL Normal 5.9-8.4 [facility] Comment on above: Order Comment: 215.2 Performed By: #### L 100.0500, L500.4050, L501.9985 ####[facility] [address] [place], [address] Urea nitrogen [Mass/Vol] 46 mg/dL High 4-19 [facility] Comment on above: Order Comment: 215.2 Performed By: #### L 100.0500, L500.4050, L501.9985 ####[facility] [address] [place], [address] Erythrocyte distribution wid th ratioOrdered By: Walter Becker on 03-16-2025 Erythrocyte distribution width (RBC) [Ratio] 13.8 % 11.6-14.6 [facility] Erythrocyte distribution wid th standard deviationOrdered By: Walter Becker on 03-16-2025 Erythrocyte distribution width (RBC) [Ratio] 43.0 fl 35.1-43.9 [facility] Glomerular filtration rate ( GFR) estimation/1.73 sq m using serum, plasma, or whole bOrdered By: Walter Becker on 03-16-2025 GFR/1.73 sq M.predicted among non-blacks MDRD (S/P/Bld) [Vol rate/Area] 55 mL/min/{1.73_m2} Low >60 [facility] Hematocrit Auto (Bld) [Volum e fraction]Ordered By: Walter Becker on 03-16-2025 Hematocrit (Bld) [Volume fraction] 37.1 % Low 40-54 [facility] Hemoglobin A1con 03-16-2025 HbA1c (Bld) [Mass fraction] 6.7 % High <=5.6 [facility] Comment on above: Order Comment: 215.2 Result Comment: Norm al < 5.7 % Prediabetic 5.7 - 6.4 % Diabetic >or= 6.5 % Please note range changes. Performed By: #### L 100.0500, L500.4050, L501.9985 ####[facility] [address] [place], [place], [id number] Hemoglobin A1c percentageOrd ered By: Walter Becker on 03-16-2025 HbA1c (Bld) [Mass fraction] 6.7 % High <5.7 [facility] Hemoglobin measurementOrdere d By: Walter Becker on 03-16-2025 Hemoglobin (Bld) [Mass/Vol] 12.0 g/dL Low 13.0-16. 5 [facility] MCV (mean corpuscular volume ) determinationOrdered By: Walter Becker on 03-16-2025 MCV (RBC) [Entitic vol] 85.3 fL 80-94 [facility] Mean corpuscular hemoglobin (MCH) determinationOrdered By: Walter Becker on 03-16-2025 MCH (RBC) [Entitic mass] 27.6 pg 27.0-32.0 [facility] No Panel InformationOrdered By: Walter Becker on 03-16-2025 9 U/L <38 [facility] Platelet countOrdered By: Horner on 03-16-2025 Platelets (Bld) [#/Vol] 207 10*3/uL 150-450 [facility] Potassium measurement (mass/ volume)Ordered By: Walter Becker on 03-16-2025 Potassium (Unsp spec) [Mass/Vol] 4.1 mmol/L 3.3-5.1 [facility] RBC Auto (Bld) [#/Vol]Ordere d By: Walter Becker on 03-16-2025 RBC (Bld) [#/Vol] 4.35 10*6/uL Low 4.6-6.2 [facility] Serum creatinine measurement (mass/volume)Ordered By: Walter Becker on 03-16-2025 Creatinine [Mass/Vol] 1.33 mg/dL High 0.70-1.20 [facility] Serum globulin measurementOr dered By: Walter Becker on 03-16-2025 Globulin (S) [Mass/Vol] 2.5 g/dL 2.2-4.2 [facility] Serum glucose measurement (m ass/volume)Ordered By: Walter Becker on 03-16-2025 Glucose [Mass/Vol] 156 mg/dL High 70-99 [facility] Serum or plasma alanine davis otransferase (ALT) measurementOrdered By: Walter Becker on 03-16-2025 ALT [Catalytic activity/Vol] 15 U/L <47 [facility] Serum or plasma albumin antoine urement (mass/volume)Ordered By: Walter Becker on 03-16-2025 Albumin [Mass/Vol] 3.8 g/dL 3.4-4.8 [facility] Serum or plasma albumin/glob ulin mass ratioOrdered By: Walter Becker on 03-16-2025 Albumin/Globulin [Mass ratio] 1.5 {ratio} 0.9-2.4 [facility] Serum or plasma alkaline marilin sphatase measurementOrdered By: Walter Becker on 03-16-2025 ALP [Catalytic activity/Vol] 121 U/L 40-129 [facility] Serum or plasma calcium antoine urement (mass/volume)Ordered By: Walter Becker on 03-16-2025 Calcium [Mass/Vol] 10.0 mg/dL 7.6-11.0 [facility] Serum or plasma urea nitroge n measurement (mass/volume)Ordered By: Walter Becker on 03-16-2025 Urea nitrogen [Mass/Vol] 46 mg/dL High 4-19 [facility] Sodium levelOrdered By: Walter Becker on 03-16-2025 Sodium [Moles/Vol] 141 mmol/L 133-145 [facility] Total proteinOrdered By: Crystal Becker on 03-16-2025 Protein [Mass/Vol] 6.3 g/dL 5.9-8.4 [facility] Art Duplex Unilat Lower E xton 03-16-2025 Art Duplex Unilat Lower Ext Normal [facility] White blood cell (WBC) count Ordered By: Walter Becker on 03-16-2025 WBC (Bld) [#/Vol] 9.5 10*3/uL 4.4-11.0 [facility] Culture, Blood (WB)on 2024 CUB Normal [facility] Comment on above: Performed By: #### L 100.0100, L300.3900, L300.4310, L500.4050, L503.6005, M200.1000, M100.636 ####[facility] [address] [place], [address] L509.6001on 03-03-2025 CORTISOL 10.60 ug/dL Normal 6.02-18.40 [facility] Comment on above: Order Comment: 215-2 Performed By: #### L 501.9520, L503.0106, L506.0400, L509.6001 ####[facility] [address] [place], [address] MR/BMS.BVSon 03-03-2025 MR/BMS.BVS Normal [facility] Serum or plasma cortisol hank surement (mass/volume)Ordered By: Walter Becker on 03-03-2025 Cortisol [Mass/Vol] 10.60 ug/dL 6.02-18.40 [facility] T4 Free Directon 03-03-2025 T4 FREE DIRECT 1.60 ng/dL High 0.76-1.46 [facility] Comment on above: Order Comment: 215-2 Performed By: #### L 501.9520, L503.0106, L506.0400, L509.6001 ####[facility] [address] [place], [address] T4 freeOrdered By: Walter anna on 03-03-2025 Free T4 [Mass/Vol] 1.60 ng/dL High 0.76-1.46 [facility] TSH DL <= 0.005 mIU/L QnOrde red By: Walter Becker on 03-03-2025 TSH Qn 1.180 uIU/mL 0.300-4.20 0 [facility] Thyroid Stim Hormone (TSH)on 03-03-2025 TSH 1.180 uIU/mL Normal 0.300-4.20 0 [facility] Comment on above: Order Comment: 215-2 Performed By: #### L 501.9520, L503.0106, L506.0400, L509.6001 ####[facility] [address] [place], [address] Vitamin B12on 03-03-2025 Cobalamin (Vitamin B12) [Mass/Vol] 522 pg/mL Normal 180-914 [facility] Comment on above: Order Comment: 215-2 Performed By: #### L 501.9520, L503.0106, L506.0400, L509.6001 ####[facility] [address] [place], [address] Vitamin B12 ser/plasOrdered By: Walter Becker on 03-03-2025 Cobalamin (Vitamin B12) [Mass/Vol] 522 pg/mL 180-914 [facility] BC GPC IDon 03-01-2025 BC GPC ID Normal [facility] Comment on above: Performed By: #### L 100.0100, L300.3900, L300.4310, L500.4050, L503.6005, M200.1000, M100.636 ####[facility] [address] [place], [address] Urine Cultureon 02-28-2025 URC Culture exhibits no growth. Normal [facility] Comment on above: Performed By: #### L 400.0001, M100.2200 ####[facility] [address] [place], [address] Absolute lymphocyte countOrd ered By: Bennett Troncoso on 02-27-2025 Lymphocytes Auto (Unsp spec) [#/Vol] 1.80 10*3/uL 0.83-4.51 [facility] Activated partial thrombopla stin time (aPTT) in platelet poor plasma by coagulation aOrdered By: Bennett Troncoso on 02-27-2025 aPTT Coag (PPP) [Time] 29.4 s 24.1-36.2 [facility] Anion gap in Serum or Plasma Ordered By: Bennett Troncoso on 02-27-2025 Anion gap [Moles/Vol] 12 mmol/L 5-15 [facility] Automated lymphocyte count a s percentage of total leukocytesOrdered By: Bennett Troncoso on 02-27-2025 Lymphocytes/100 WBC Auto (Unsp spec) 14.2 % Low 19-41 [facility] BUN/creatinine ratioOrdered By: Bennett Troncoso on 02-27-2025 Urea nitrogen/Creatinine [Mass ratio] 34.0 mg/mg High 10-20 [facility] Basophil percentageOrdered B y: Bennett Troncoso on 02-27-2025 Basophils/100 WBC (Bld) 0.6 % 0-1 [facility] Bilirubin Test strip Ql (U)O rdered By: Bennett Troncoso on 02-27-2025 Bilirubin Ql (U) Negative Negative [facility] Bilirubin, totalOrdered By: Bennett Troncoso on 02-27-2025 Bilirubin [Mass/Vol] 0.47 mg/dL 0.00-1.30 [facility] Blood cultureOrdered By: Brook Troncoso on 02-27-2025 Bacteria identified Cx Nom (Bld) No growth in 5 days. [facility] Bacteria identified Cx Nom (Bld) Negative Abnormal [facility] Brain/Head without Contrasto n 02-27-2025 Brain/Head without Contrast Normal [facility] CBC W/Diff, Automatedon 02-12 Absolute Lymph 1.80 X10 3/uL Normal 0.83-4.51 [facility] Comment on above: Performed By: #### L 100.0100, L300.3900, L300.4310, L500.4050, L503.6005, M200.1000, M100.636 ####[facility] [address] [place], [address] Absolute Neut 9.0 X10 3/uL High 2.0-7.7 [facility] Comment on above: Performed By: #### L 100.0100, L300.3900, L300.4310, L500.4050, L503.6005, M200.1000, M100.636 ####[facility] [address] [place], [address] Basophils/100 WBC (Bld) 0.6 % Normal 0-1 [facility] Comment on above: Performed By: #### L 100.0100, L300.3900, L300.4310, L500.4050, L503.6005, M200.1000, M100.636 ####[facility] [address] [place], [address] Eosinophils/100 WBC (Bld) 7.1 % High 0-5 [facility] Comment on above: Performed By: #### L 100.0100, L300.3900, L300.4310, L500.4050, L503.6005, M200.1000, M100.636 ####[facility] [address] [place], [address] Erythrocyte distribution width (RBC) [Ratio] 13.8 % Normal 11.6-14.6 [facility] Comment on above: Performed By: #### L 100.0100, L300.3900, L300.4310, L500.4050, L503.6005, M200.1000, M100.636 ####[facility] [address] [place], [address] Hematocrit (Bld) [Volume fraction] 38.8 % Low 40-54 [facility] Comment on above: Performed By: #### L 100.0100, L300.3900, L300.4310, L500.4050, L503.6005, M200.1000, M100.636 ####[facility] [address] [place], [address] Hemoglobin (Bld) [Mass/Vol] 12.3 g/dL Low 13.0-16. 5 [facility] Comment on above: Performed By: #### L 100.0100, L300.3900, L300.4310, L500.4050, L503.6005, M200.1000, M100.636 ####[facility] [address] [place], [address] IG% 0.800 Normal 0.0-0.9 [facility] Comment on above: Result Comment: IG% - Immature Granulocytes (promyelocytes, myelocytes andmetamyelocytes) > 1% indicates that a LEFT SHIFT is Present. Performed By: #### L 100.0100, L300.3900, L300.4310, L500.4050, L503.6005, M200.1000, M100.636 ####[facility] [address] [place], [address] Lymphocytes/100 WBC (Bld) 14.2 % Low 19-41 [facility] Comment on above: Performed By: #### L 100.0100, L300.3900, L300.4310, L500.4050, L503.6005, M200.1000, M100.636 ####[facility] [address] [place], [address] MCH (RBC) [Entitic mass] 27.3 pg Normal 27.0-32.0 [facility] Comment on above: Performed By: #### L 100.0100, L300.3900, L300.4310, L500.4050, L503.6005, M200.1000, M100.636 ####[facility] [address] [place], [address] MCHC (RBC) [Mass/Vol] 31.7 g/dL Low 32-36 [facility] Comment on above: Performed By: #### L 100.0100, L300.3900, L300.4310, L500.4050, L503.6005, M200.1000, M100.636 ####[facility] [address] [place], [address] MCV (RBC) [Entitic vol] 86.0 fL Normal 80-94 [facility] Comment on above: Performed By: #### L 100.0100, L300.3900, L300.4310, L500.4050, L503.6005, M200.1000, M100.636 ####[facility] [address] [place], [address] Monocytes/100 WBC (Bld) 6.1 % Normal 0-10 [facility] Comment on above: Performed By: #### L 100.0100, L300.3900, L300.4310, L500.4050, L503.6005, M200.1000, M100.636 ####[facility] [address] [place], [address] Neutrophils/100 WBC (Bld) 71.2 % High 47-70 [facility] Comment on above: Performed By: #### L 100.0100, L300.3900, L300.4310, L500.4050, L503.6005, M200.1000, M100.636 ####[facility] [address] [place], [address] Nucleated RBC (Bld) [#/Vol] 0 10*3/uL Normal 0-5 [facility] Comment on above: Performed By: #### L 100.0100, L300.3900, L300.4310, L500.4050, L503.6005, M200.1000, M100.636 ####[facility] [address] [place], [address] Platelet mean volume (Bld) [Entitic vol] 9.4 fL Normal 6.2-12.0 [facility] Comment on above: Performed By: #### L 100.0100, L300.3900, L300.4310, L500.4050, L503.6005, M200.1000, M100.636 ####[facility] [address] [place], [address] Platelets (Bld) [#/Vol] 234 10*3/uL Normal 150-450 [facility] Comment on above: Performed By: #### L 100.0100, L300.3900, L300.4310, L500.4050, L503.6005, M200.1000, M100.636 ####[facility] [address] [place], [address] RBC (Bld) [#/Vol] 4.51 10*6/uL Low 4.6-6.2 [facility] Comment on above: Performed By: #### L 100.0100, L300.3900, L300.4310, L500.4050, L503.6005, M200.1000, M100.636 ####[facility] [address] [place], [address] RDW SD 42.7 fl Normal 35.1-43.9 [facility] Comment on above: Performed By: #### L 100.0100, L300.3900, L300.4310, L500.4050, L503.6005, M200.1000, M100.636 ####[facility] [address] [place], [address] WBC (Bld) [#/Vol] 12.7 10*3/uL High 4.4-11.0 [facility] Comment on above: Performed By: #### L 100.0100, L300.3900, L300.4310, L500.4050, L503.6005, M200.1000, M100.636 ####[facility] [address] [place], [address] Carbon dioxide, total [Moles /volume] in Central venous bloodOrdered By: Bennett Troncoso on 02-27-2025 CO2 [Moles/Vol] 27.8 mmol/L 21.0-32.0 [facility] Chest PA and Lateralon 02-27 Chest PA and Lateral Normal [facility] Chloride assayOrdered By: Johnny Troncoso on 02-27-2025 Chloride [Moles/Vol] 98 mmol/L 98-108 [facility] Comprehensive Metabolic Prof ilon 02-27-2025 Albumin [Mass/Vol] 3.9 g/dL Normal 3.4-4.8 [facility] Comment on above: Performed By: #### L 100.0100, L300.3900, L300.4310, L500.4050, L503.6005, M200.1000, M100.636 ####[facility] [address] [place], [address] Albumin/Globulin [Mass ratio] 1.4 {ratio} Normal 0.9-2.4 [facility] Comment on above: Performed By: #### L 100.0100, L300.3900, L300.4310, L500.4050, L503.6005, M200.1000, M100.636 ####[facility] [address] [place], [address] ALK PHOS 107 U/L Normal 40-129 [facility] Comment on above: Performed By: #### L 100.0100, L300.3900, L300.4310, L500.4050, L503.6005, M200.1000, M100.636 ####[facility] [address] [place], [address] ALT [Catalytic activity/Vol] 21 U/L Normal <=46 [facility] Comment on above: Performed By: #### L 100.0100, L300.3900, L300.4310, L500.4050, L503.6005, M200.1000, M100.636 ####[facility] [address] [place], [address] AST [Catalytic activity/Vol] 14 U/L Normal <=37 [facility] Comment on above: Performed By: #### L 100.0100, L300.3900, L300.4310, L500.4050, L503.6005, M200.1000, M100.636 ####[facility] [address] [place], [address] Bilirubin [Mass/Vol] 0.47 mg/dL Normal 0.00-1.30 [facility] Comment on above: Performed By: #### L 100.0100, L300.3900, L300.4310, L500.4050, L503.6005, M200.1000, M100.636 ####[facility] [address] [place], [address] BUN/CRE 34.0 RATIO High 10-20 [facility] Comment on above: Performed By: #### L 100.0100, L300.3900, L300.4310, L500.4050, L503.6005, M200.1000, M100.636 ####[facility] [address] [place], [address] Calcium [Mass/Vol] 9.9 mg/dL Normal 7.6-11.0 [facility] Comment on above: Performed By: #### L 100.0100, L300.3900, L300.4310, L500.4050, L503.6005, M200.1000, M100.636 ####[facility] [address] [place], [address] Chloride [Moles/Vol] 98 mmol/L Normal 98-108 [facility] Comment on above: Performed By: #### L 100.0100, L300.3900, L300.4310, L500.4050, L503.6005, M200.1000, M100.636 ####[facility] [address] [place], [address] CO2 [Moles/Vol] 27.8 mmol/L Normal 21.0-32.0 [facility] Comment on above: Performed By: #### L 100.0100, L300.3900, L300.4310, L500.4050, L503.6005, M200.1000, M100.636 ####[facility] [address] [place], [address] Creatinine [Mass/Vol] 1.49 mg/dL High 0.70-1.20 [facility] Comment on above: Performed By: #### L 100.0100, L300.3900, L300.4310, L500.4050, L503.6005, M200.1000, M100.636 ####[facility] [address] [place], [address] ECRCL 54.14 ml/min Normal 50-250 [facility] Comment on above: Performed By: #### L 100.0100, L300.3900, L300.4310, L500.4050, L503.6005, M200.1000, M100.636 ####[facility] [address] [place], [address] GAP 12 Normal 5-15 [facility] Comment on above: Performed By: #### L 100.0100, L300.3900, L300.4310, L500.4050, L503.6005, M200.1000, M100.636 ####[facility] [address] [place], [address] GFR/1.73 sq M.predicted among non-blacks MDRD (S/P/Bld) [Vol rate/Area] 48 mL/min/{1.73_m2} Low >60 [facility] Comment on above: Result Comment: mL/m in/1.73m2 CKD-EPI Creatinine Equation (2020) Performed By: #### L 100.0100, L300.3900, L300.4310, L500.4050, L503.6005, M200.1000, M100.636 ####[facility] [address] [place], [address] Globulin (S) [Mass/Vol] 2.7 g/dL Normal 2.2-4.2 [facility] Comment on above: Performed By: #### L 100.0100, L300.3900, L300.4310, L500.4050, L503.6005, M200.1000, M100.636 ####[facility] [address] [place], [address] Glucose [Mass/Vol] 176 mg/dL High 70-99 [facility] Comment on above: Performed By: #### L 100.0100, L300.3900, L300.4310, L500.4050, L503.6005, M200.1000, M100.636 ####[facility] [address] [place], [address] Potassium [Moles/Vol] 4.2 mmol/L Normal 3.3-5.1 [facility] Comment on above: Performed By: #### L 100.0100, L300.3900, L300.4310, L500.4050, L503.6005, M200.1000, M100.636 ####[facility] [address] [place], [address] Sodium [Moles/Vol] 138 mmol/L Normal 133-145 [facility] Comment on above: Performed By: #### L 100.0100, L300.3900, L300.4310, L500.4050, L503.6005, M200.1000, M100.636 ####[facility] [address] [place], [place], [id number] T PROT 6.6 g/dL Normal 5.9-8.4 [facility] Comment on above: Performed By: #### L 100.0100, L300.3900, L300.4310, L500.4050, L503.6005, M200.1000, M100.636 ####[facility] [address] [place], [place], [id number] Urea nitrogen [Mass/Vol] 51 mg/dL High 4-19 [facility] Comment on above: Performed By: #### L 100.0100, L300.3900, L300.4310, L500.4050, L503.6005, M200.1000, M100.636 ####[facility] [address] [place], [place], [id number] Emergency Department Summary on 02-27-2025 Emergency Department Summary Normal [facility] Eosinophil percentageOrdered By: Bennett Troncoso on 02-27-2025 Eosinophils/100 WBC (Bld) 7.1 % High 0-5 [facility] Erythrocyte distribution wid th ratioOrdered By: Bennett Troncoso on 02-27-2025 Erythrocyte distribution width (RBC) [Ratio] 13.8 % 11.6-14.6 [facility] Erythrocyte distribution wid th standard deviationOrdered By: Bennett Troncoso on 02-27-2025 Erythrocyte distribution width (RBC) [Ratio] 42.7 fl 35.1-43.9 [facility] Foot min 3 Viewson 5 Foot min 3 Views Normal [facility] Glomerular filtration rate ( GFR) estimation/1.73 sq m using serum, plasma, or whole bOrdered By: Bennett Troncoso on 02-27-2025 GFR/1.73 sq M.predicted among non-blacks MDRD (S/P/Bld) [Vol rate/Area] 48 mL/min/{1.73_m2} Low >60 [facility] Hematocrit Auto (Bld) [Volum e fraction]Ordered By: Bennett Troncoso on 02-27-2025 Hematocrit (Bld) [Volume fraction] 38.8 % Low 40-54 [facility] Hemoglobin measurementOrdere d By: Bennett Troncoso on 02-27-2025 Hemoglobin (Bld) [Mass/Vol] 12.3 g/dL Low 13.0-16. 5 [facility] Immature granulocytes/100 WB C Auto (Bld)Ordered By: Bennett Troncoso on 02-27-2025 Immature granulocytes/100 WBC (Bld) 0.800 % 0.0-0.9 [facility] Ketones Test strip Ql (U)Ord ered By: Bennett Troncoso on 02-27-2025 Ketones Ql (U) Negative Negative [facility] Lactic Acidon 02-27-2025 Lactate [Moles/Vol] 1.5 mmol/L Normal 0.0-2.0 [facility] Comment on above: Order Comment: Y Performed By: #### L 100.0100, L300.3900, L300.4310, L500.4050, L503.6005, M200.1000, M100.636 ####[facility] [address] [place], [address] MCV (mean corpuscular volume ) determinationOrdered By: Bennett Troncoso on 02-27-2025 MCV (RBC) [Entitic vol] 86.0 fL 80-94 [facility] Mean corpuscular hemoglobin (MCH) determinationOrdered By: Bennett Troncoso on 02-27-2025 MCH (RBC) [Entitic mass] 27.3 pg 27.0-32.0 [facility] Monocyte percentageOrdered B y: Bennett Troncoso on 02-27-2025 Monocytes/100 WBC (Bld) 6.1 % 0-10 [facility] Mucus LM Ql (Urine sed)Order ed By: Bennett Troncoso on 02-27-2025 Mucus Ql (Urine sed) 0 SEEN /hpf [facility] Neutrophil percentageOrdered By: Bennett Troncoso on 02-27-2025 Neutrophils/100 WBC (Bld) 71.2 % High 47-70 [facility] Nitrite Test strip Ql (U)Ord ered By: Bennett Troncoso on 02-27-2025 Nitrite Ql (U) Negative Negative [facility] No Panel InformationOrdered By: Bennett Troncoso on 02-27-2025 14 U/L <38 [facility] Organism identificationOrder ed By: Bennett Troncoso on 02-27-2025 Microorganism identified Cx Nom (Unsp spec) Negative Abnormal [facility] Partial Thromboplast Timeon 02-27-2025 aPTT Coag (Bld) [Time] 29.4 s Normal 24.1-36.2 [facility] Comment on above: Performed By: #### L 100.0100, L300.3900, L300.4310, L500.4050, L503.6005, M200.1000, M100.636 ####[facility] [address] [place], [place], [id number] Platelet countOrdered By: Johnny Troncoso on 02-27-2025 Platelets (Bld) [#/Vol] 234 10*3/uL 150-450 [facility] Potassium measurement (mass/ volume)Ordered By: Bennett Troncoso on 02-27-2025 Potassium (Unsp spec) [Mass/Vol] 4.2 mmol/L 3.3-5.1 [facility] Protein Test strip Ql (U)Ord ered By: Bennett Troncoso on 02-27-2025 Protein Ql (U) 15 mg/dl High Negative [facility] Prothrombin Time w/INRon INR Coag (PPP) [Relative time] 1.2 {INR} Normal [facility] Comment on above: Performed By: #### L 100.0100, L300.3900, L300.4310, L500.4050, L503.6005, M200.1000, M100.636 ####[facility] [address] [place], [place], [id number] PT Coag (PPP) [Time] 15.1 s High 11.7-14.9 [facility] Comment on above: Performed By: #### L 100.0100, L300.3900, L300.4310, L500.4050, L503.6005, M200.1000, M100.636 ####[facility] [address] [place], [address] Prothrombin timeOrdered By: Bennett Troncoso on 02-27-2025 PT Coag (PPP) [Time] 15.1 s High 11.7-14.9 [facility] RBC Auto (Bld) [#/Vol]Ordere d By: Bennett Troncoso on 02-27-2025 RBC (Bld) [#/Vol] 4.51 10*6/uL Low 4.6-6.2 [facility] Serum creatinine measurement (mass/volume)Ordered By: Bennett Troncoso on 02-27-2025 Creatinine [Mass/Vol] 1.49 mg/dL High 0.70-1.20 [facility] Serum globulin measurementOr dered By: Bennett Troncoso on 02-27-2025 Globulin (S) [Mass/Vol] 2.7 g/dL 2.2-4.2 [facility] Serum glucose measurement (m ass/volume)Ordered By: Bennett Troncoso on 02-27-2025 Glucose [Mass/Vol] 176 mg/dL High 70-99 [facility] Serum or plasma alanine davis otransferase (ALT) measurementOrdered By: Bennett Troncoso on 02-27-2025 ALT [Catalytic activity/Vol] 21 U/L <47 [facility] Serum or plasma albumin antoine urement (mass/volume)Ordered By: Bennett Troncoso on 02-27-2025 Albumin [Mass/Vol] 3.9 g/dL 3.4-4.8 [facility] Serum or plasma albumin/glob ulin mass ratioOrdered By: Bnenett Troncoso on 02-27-2025 Albumin/Globulin [Mass ratio] 1.4 {ratio} 0.9-2.4 [facility] Serum or plasma alkaline marilin sphatase measurementOrdered By: Bennett Troncoso on 02-27-2025 ALP [Catalytic activity/Vol] 107 U/L 40-129 [facility] Serum or plasma calcium antoine urement (mass/volume)Ordered By: Bennett Troncoso on 02-27-2025 Calcium [Mass/Vol] 9.9 mg/dL 7.6-11.0 [facility] Serum or plasma urea nitroge n measurement (mass/volume)Ordered By: Bennett Troncoso on 02-27-2025 Urea nitrogen [Mass/Vol] 51 mg/dL High 4-19 [facility] Sodium levelOrdered By: Teodora Troncoso on 02-27-2025 Sodium [Moles/Vol] 138 mmol/L 133-145 [facility] Squamous epithelial cells de tection in urine sediment by light microscopyOrdered By: Bennett Troncoso on 02-27-2025 Epithelial cells.squamous LM Ql (Urine sed) 0 SEEN /hpf 0-5 [facility] Total proteinOrdered By: Brook janessa Karyna on 02-27-2025 Protein [Mass/Vol] 6.6 g/dL 5.9-8.4 [facility] Urinalysis, Completeon 02-27 BACTERIA 0 SEEN Normal None Seen [facility] Comment on above: Order Comment: BRIANNA CTOR TO SPECIFY Performed By: #### L 400.0001, M1.0 ####[facility] [address] [place], [address] EPI,SQUAMOUS 0 SEEN Normal 0-5 [facility] Comment on above: Order Comment: BRIANNA CTOR TO SPECIFY Performed By: #### L 400.0001, M100.0 ####[facility] [address] [place], [address] Mucus Ql (Urine sed) 0 SEEN Normal [facility] Comment on above: Order Comment: BRIANNA CTOR TO SPECIFY Performed By: #### L 400.0001, M100.0 ####[facility] [address] [place], [address] RBC 0 SEEN Normal 0-5 [facility] Comment on above: Order Comment: BRIANNA CTOR TO SPECIFY Performed By: #### L 400.0001, M100.2200 ####[facility] [address] [place], [place], [address] WBC 0 SEEN Normal 0-5 [facility] Comment on above: Order Comment: COLLE CTOR TO SPECIFY Performed By: #### L 400.0001, M100.2200 ####[facility] [address] [place], [address] Urine clarityOrdered By: Brook Troncoso on 02-27-2025 Clarity (U) Clear Clear [facility] Urine color determinationOrd ered By: Bennett Troncoso on 02-27-2025 Color (U) Straw Yellow [facility] Urine cultureOrdered By: Brook Troncoso on 02-27-2025 Bacteria identified Cx Nom (U) Culture exhibits no growth. [facility] Urine glucose detectionOrder ed By: Bennett Troncoso on 02-27-2025 Glucose Ql (U) Normal mg/dl Normal [facility] Urine leukocyte esterase det ection by dipstickOrdered By: Bennett Troncoso on 02-27-2025 Leukocyte esterase Test strip Ql (U) Negative Negative [facility] Urine pHOrdered By: Bennett rosado on 02-27-2025 pH (U) 6.0 [pH] 5.0 - 8.0 [facility] Urine sediment bacteria coun t by microscopy (number/high power field)Ordered By: Bennett Troncoso on 02-27-2025 Bacteria LM.HPF (Urine sed) [#/Area] 0 /[HPF] None Seen [facility] Urine specific gravity measu rementOrdered By: Bennett Troncoso on 02-27-2025 Specific gravity (U) [Rel density] 1.010 1.002-1.03 0 [facility] Urine urobilinogen measureme ntOrdered By: Bennett Troncoso on 02-27-2025 Urobilinogen Ql (U) Normal mg/dl Normal [facility] White blood cell (WBC) count Ordered By: Bennett Troncoso on 02-27-2025 WBC (Bld) [#/Vol] 12.7 10*3/uL High 4.4-11.0 [facility] White blood cell countOrdere d By: Bennett Troncoso on 02-27-2025 White blood cell count 0 SEEN /hpf 0-5 [facility] Anion gap in Serum or Plasma Ordered By: Walter Becker on 02-26-2025 Anion gap [Moles/Vol] 11 mmol/L 11-26 [facility] BUN/creatinine ratioOrdered By: Walter Becker on 02-26-2025 Urea nitrogen/Creatinine [Mass ratio] 31.6 mg/mg High 05-03 [facility] Basic Metabolic Profile (BMP )on 02-26-2025 BUN/CRE 31.6 RATIO High 05-03 [facility] Comment on above: Order Comment: 215-2 Performed By: #### L 500.2500 ####[facility] [address] [place], [address] Calcium [Mass/Vol] 9.8 mg/dL Normal 7.6-11.0 [facility] Comment on above: Order Comment: 215-2 Performed By: #### L 500.2500 ####[facility] [address] [place], [address] Chloride [Moles/Vol] 101 mmol/L Normal 98-108 [facility] Comment on above: Order Comment: 215-2 Performed By: #### L 500.2500 ####[facility] [address] [place], [address] CO2 [Moles/Vol] 27.9 mmol/L Normal 21.0-32.0 [facility] Comment on above: Order Comment: 215-2 Performed By: #### L 500.2500 ####[facility] [address] [place], [address] Creatinine [Mass/Vol] 1.44 mg/dL High 0.70-1.20 [facility] Comment on above: Order Comment: 215-2 Performed By: #### L 500.2500 ####[facility] [address] [place], [address] GAP 11 Normal 11-26 [facility] Comment on above: Order Comment: 215-2 Performed By: #### L 500.2500 ####[facility] [address] [place], [address] GFR/1.73 sq M.predicted among non-blacks MDRD (S/P/Bld) [Vol rate/Area] 50 mL/min/{1.73_m2} Low >60 [facility] Comment on above: Order Comment: 215-2 Result Comment: mL/m in/1.73m2 CKD-EPI Creatinine Equation (2020) Performed By: #### L 500.2500 ####[facility] [address] [place], [address] Glucose [Mass/Vol] 141 mg/dL High 70-99 [facility] Comment on above: Order Comment: 215-2 Performed By: #### L 500.2500 ####[facility] [address] [place], [address] Potassium [Moles/Vol] 3.7 mmol/L Normal 3.3-5.1 [facility] Comment on above: Order Comment: 215-2 Performed By: #### L 500.2500 ####[facility] [address] [place], [address] Sodium [Moles/Vol] 140 mmol/L Normal 133-145 [facility] Comment on above: Order Comment: 215-2 Performed By: #### L 500.2500 ####[facility] [address] [place], [address] Urea nitrogen [Mass/Vol] 46 mg/dL High 4-19 [facility] Comment on above: Order Comment: 215-2 Performed By: #### L 500.2500 ####[facility] [address] [place], [address] Carbon dioxide, total [Moles /volume] in Central venous bloodOrdered By: Walter Becker on 02-26-2025 CO2 [Moles/Vol] 27.9 mmol/L 21.0-32.0 [facility] Chloride assayOrdered By: Horner on 02-26-2025 Chloride [Moles/Vol] 101 mmol/L 98-108 [facility] Glomerular filtration rate ( GFR) estimation/1.73 sq m using serum, plasma, or whole bOrdered By: Walter Becker on 02-26-2025 GFR/1.73 sq M.predicted among non-blacks MDRD (S/P/Bld) [Vol rate/Area] 50 mL/min/{1.73_m2} Low >60 [facility] Potassium measurement (mass/ volume)Ordered By: Walter Becker on 02-26-2025 Potassium (Unsp spec) [Mass/Vol] 3.7 mmol/L 3.3-5.1 [facility] Serum creatinine measurement (mass/volume)Ordered By: Walter Becker on 02-26-2025 Creatinine [Mass/Vol] 1.44 mg/dL High 0.70-1.20 [facility] Serum glucose measurement (m ass/volume)Ordered By: Walter Becker on 02-26-2025 Glucose [Mass/Vol] 141 mg/dL High 70-99 [facility] Serum or plasma calcium antione urement (mass/volume)Ordered By: Walter Becker on 02-26-2025 Calcium [Mass/Vol] 9.8 mg/dL 7.6-11.0 [facility] Serum or plasma urea nitroge n measurement (mass/volume)Ordered By: Walter Becker on 02-26-2025 Urea nitrogen [Mass/Vol] 46 mg/dL High 4-19 [facility] Sodium levelOrdered By: Walter Becker on 02-26-2025 Sodium [Moles/Vol] 140 mmol/L 133-145 [facility] Anion gap in Serum or Plasma Ordered By: Walter Becker on 02-25-2025 Anion gap [Moles/Vol] 12 mmol/L 5-15 [facility] BUN/creatinine ratioOrdered By: Walter Becker on 02-25-2025 Urea nitrogen/Creatinine [Mass ratio] 30.8 mg/mg High 10-20 [facility] Basic Metabolic Profile (BMP )on 02-25-2025 BUN/CRE 30.8 RATIO High 10-20 [facility] Comment on above: Order Comment: 215.2 Performed By: #### L 500.2500 ####[facility] [address] [place], [address] Calcium [Mass/Vol] 10.0 mg/dL Normal 7.6-11.0 [facility] Comment on above: Order Comment: 215.2 Performed By: #### L 500.2500 ####[facility] [address] [place], [address] Chloride [Moles/Vol] 100 mmol/L Normal 98-108 [facility] Comment on above: Order Comment: 215.2 Performed By: #### L 500.2500 ####[facility] [address] [place], [address] CO2 [Moles/Vol] 27.9 mmol/L Normal 21.0-32.0 [facility] Comment on above: Order Comment: 215.2 Performed By: #### L 500.2500 ####[facility] [address] [place], [address] Creatinine [Mass/Vol] 1.31 mg/dL High 0.70-1.20 [facility] Comment on above: Order Comment: 215.2 Performed By: #### L 500.2500 ####[facility] [address] [place], [address] GAP 12 Normal 5-15 [facility] Comment on above: Order Comment: 215.2 Performed By: #### L 500.2500 ####[facility] [address] [place], [address] GFR/1.73 sq M.predicted among non-blacks MDRD (S/P/Bld) [Vol rate/Area] 56 mL/min/{1.73_m2} Low >60 [facility] Comment on above: Order Comment: 215.2 Result Comment: mL/m in/1.73m2 CKD-EPI Creatinine Equation (2020) Performed By: #### L 500.2500 ####[facility] [address] [place], [address] Glucose [Mass/Vol] 158 mg/dL High 70-99 [facility] Comment on above: Order Comment: 215.2 Performed By: #### L 500.2500 ####[facility] [address] [place], [address] Potassium [Moles/Vol] 3.8 mmol/L Normal 3.3-5.1 [facility] Comment on above: Order Comment: 215.2 Performed By: #### L 500.2500 ####[facility] [address] [place], [address] Sodium [Moles/Vol] 140 mmol/L Normal 133-145 [facility] Comment on above: Order Comment: 215.2 Performed By: #### L 500.2500 ####[facility] [address] [place], [address] Urea nitrogen [Mass/Vol] 40 mg/dL High 4-19 [facility] Comment on above: Order Comment: 215.2 Performed By: #### L 500.2500 ####[facility] [address] [place], [address] Carbon dioxide, total [Moles /volume] in Central venous bloodOrdered By: Walter Becker on 02-25-2025 CO2 [Moles/Vol] 27.9 mmol/L 21.0-32.0 [facility] Chloride assayOrdered By: Horner on 02-25-2025 Chloride [Moles/Vol] 100 mmol/L 98-108 [facility] Glomerular filtration rate ( GFR) estimation/1.73 sq m using serum, plasma, or whole bOrdered By: Walter Becker on 02-25-2025 GFR/1.73 sq M.predicted among non-blacks MDRD (S/P/Bld) [Vol rate/Area] 56 mL/min/{1.73_m2} Low >60 [facility] Potassium measurement (mass/ volume)Ordered By: Walter Becker on 02-25-2025 Potassium (Unsp spec) [Mass/Vol] 3.8 mmol/L 3.3-5.1 [facility] Serum creatinine measurement (mass/volume)Ordered By: Walter Becker on 02-25-2025 Creatinine [Mass/Vol] 1.31 mg/dL High 0.70-1.20 [facility] Serum glucose measurement (m ass/volume)Ordered By: Walter Becker on 02-25-2025 Glucose [Mass/Vol] 158 mg/dL High 70-99 [facility] Serum or plasma calcium antoine urement (mass/volume)Ordered By: Walter Becker on 02-25-2025 Calcium [Mass/Vol] 10.0 mg/dL 7.6-11.0 [facility] Serum or plasma urea nitroge n measurement (mass/volume)Ordered By: Walter Becker on 02-25-2025 Urea nitrogen [Mass/Vol] 40 mg/dL High 4-19 [facility] Sodium levelOrdered By: Walter Becker on 02-25-2025 Sodium [Moles/Vol] 140 mmol/L 133-145 [facility] Anion gap in Serum or Plasma Ordered By: Walter Becker on 02-22-2025 Anion gap [Moles/Vol] 13 mmol/L 5-15 [facility] BUN/creatinine ratioOrdered By: Walter Becker on 02-22-2025 Urea nitrogen/Creatinine [Mass ratio] 28.7 mg/mg High 10-20 [facility] Basic Metabolic Profile (BMP )on 02-22-2025 BUN/CRE 28.7 RATIO High 05-03 [facility] Comment on above: Order Comment: 215.2 Performed By: #### L 500.2369 ####[facility] [address] [place], [address] Calcium [Mass/Vol] 9.7 mg/dL Normal 7.6-11.0 [facility] Comment on above: Order Comment: 215.2 Performed By: #### L 500.2500 ####[facility] [address] [place], [address] Chloride [Moles/Vol] 100 mmol/L Normal 98-108 [facility] Comment on above: Order Comment: 215.2 Performed By: #### L 500.2500 ####[facility] [address] [place], [address] CO2 [Moles/Vol] 27.5 mmol/L Normal 21.0-32.0 [facility] Comment on above: Order Comment: 215.2 Performed By: #### L 500.2500 ####[facility] [address] [place], [address] Creatinine [Mass/Vol] 1.45 mg/dL High 0.70-1.20 [facility] Comment on above: Order Comment: 215.2 Performed By: #### L 500.2500 ####[facility] [address] [place], [address] GAP 13 Normal 5-15 [facility] Comment on above: Order Comment: 215.2 Performed By: #### L 500.2500 ####[facility] [address] [place], [address] GFR/1.73 sq M.predicted among non-blacks MDRD (S/P/Bld) [Vol rate/Area] 50 mL/min/{1.73_m2} Low >60 [facility] Comment on above: Order Comment: 215.2 Result Comment: mL/m in/1.73m2 CKD-EPI Creatinine Equation (2020) Performed By: #### L 500.2500 ####[facility] [address] [place], [address] Glucose [Mass/Vol] 152 mg/dL High 70-99 [facility] Comment on above: Order Comment: 215.2 Performed By: #### L 500.2500 ####[facility] [address] [place], [address] Potassium [Moles/Vol] 3.5 mmol/L Normal 3.3-5.1 [facility] Comment on above: Order Comment: 215.2 Performed By: #### L 500.2500 ####[facility] [address] [place], [address] Sodium [Moles/Vol] 140 mmol/L Normal 133-145 [facility] Comment on above: Order Comment: 215.2 Performed By: #### L 500.2500 ####[facility] [address] [place], [address] Urea nitrogen [Mass/Vol] 42 mg/dL High 4-19 [facility] Comment on above: Order Comment: 215.2 Performed By: #### L 500.2500 ####[facility] [address] [place], [address] Carbon dioxide, total [Moles /volume] in Central venous bloodOrdered By: Walter Becker on 02-22-2025 CO2 [Moles/Vol] 27.5 mmol/L 21.0-32.0 [facility] Chloride assayOrdered By: Horner on 02-22-2025 Chloride [Moles/Vol] 100 mmol/L 98-108 [facility] Glomerular filtration rate ( GFR) estimation/1.73 sq m using serum, plasma, or whole bOrdered By: Walter Becker on 02-22-2025 GFR/1.73 sq M.predicted among non-blacks MDRD (S/P/Bld) [Vol rate/Area] 50 mL/min/{1.73_m2} Low >60 [facility] Potassium measurement (mass/ volume)Ordered By: Walter Becker on 02-22-2025 Potassium (Unsp spec) [Mass/Vol] 3.5 mmol/L 3.3-5.1 [facility] Serum creatinine measurement (mass/volume)Ordered By: Walter Becker on 02-22-2025 Creatinine [Mass/Vol] 1.45 mg/dL High 0.70-1.20 [facility] Serum glucose measurement (m ass/volume)Ordered By: Walter Becker on 02-22-2025 Glucose [Mass/Vol] 152 mg/dL High 70-99 [facility] Serum or plasma calcium antoine urement (mass/volume)Ordered By: Walter Becker on 02-22-2025 Calcium [Mass/Vol] 9.7 mg/dL 7.6-11.0 [facility] Serum or plasma urea nitroge n measurement (mass/volume)Ordered By: Walter Becker on 02-22-2025 Urea nitrogen [Mass/Vol] 42 mg/dL High 4-19 [facility] Sodium levelOrdered By: Walter Becker on 02-22-2025 Sodium [Moles/Vol] 140 mmol/L 133-145 [facility] Anion gap in Serum or Plasma Ordered By: Walter Becker on 02-18-2025 Anion gap [Moles/Vol] 10 mmol/L 5-15 [facility] BUN/creatinine ratioOrdered By: Walter Becker on 02-18-2025 Urea nitrogen/Creatinine [Mass ratio] 29.0 mg/mg High 10-20 [facility] Basic Metabolic Profile (BMP )on 02-18-2025 BUN/CRE 29.0 RATIO High 10-20 [facility] Comment on above: Order Comment: 215-2 Performed By: #### L 100.0500, L500.2500 ####[facility] [address] [place], [address] Calcium [Mass/Vol] 9.0 mg/dL Normal 7.6-11.0 [facility] Comment on above: Order Comment: 215-2 Performed By: #### L 100.0500, L500.2500 ####[facility] [address] [place], [address] Chloride [Moles/Vol] 105 mmol/L Normal 98-108 [facility] Comment on above: Order Comment: 215-2 Performed By: #### L 100.0500, L500.2500 ####[facility] [address] [place], [address] CO2 [Moles/Vol] 27.8 mmol/L Normal 21.0-32.0 [facility] Comment on above: Order Comment: 215-2 Performed By: #### L 100.0500, L500.2500 ####[facility] [address] [place], [address] Creatinine [Mass/Vol] 1.42 mg/dL High 0.70-1.20 [facility] Comment on above: Order Comment: 215-2 Performed By: #### L 100.0500, L500.2500 ####[facility] [address] [place], [address] GAP 10 Normal 5-15 [facility] Comment on above: Order Comment: 215-2 Performed By: #### L 100.0500, L500.2500 ####[facility] [address] [place], [address] GFR/1.73 sq M.predicted among non-blacks MDRD (S/P/Bld) [Vol rate/Area] 51 mL/min/{1.73_m2} Low >60 [facility] Comment on above: Order Comment: 215-2 Result Comment: mL/m in/1.73m2 CKD-EPI Creatinine Equation (2020) Performed By: #### L 100.0500, L500.2500 ####[facility] [address] [place], [address] Glucose [Mass/Vol] 140 mg/dL High 70-99 [facility] Comment on above: Order Comment: 215-2 Performed By: #### L 100.0500, L500.2500 ####[facility] [address] [place], [address] Potassium [Moles/Vol] 4.0 mmol/L Normal 3.3-5.1 [facility] Comment on above: Order Comment: 215-2 Performed By: #### L 100.0500, L500.2500 ####[facility] [address] [place], [address] Sodium [Moles/Vol] 143 mmol/L Normal 133-145 [facility] Comment on above: Order Comment: 215-2 Performed By: #### L 100.0500, L500.2500 ####[facility] [address] [place], [address] Urea nitrogen [Mass/Vol] 41 mg/dL High 4-19 [facility] Comment on above: Order Comment: 215-2 Performed By: #### L 100.0500, L500.2500 ####[facility] [address] [place], [address] CBC-Complete Blood Cnt No Di ffon 02-18-2025 Erythrocyte distribution width (RBC) [Ratio] 13.8 % Normal 11.6-14.6 [facility] Comment on above: Order Comment: 215-2 Performed By: #### L 100.0500, L500.2500 ####[facility] [address] [place], [address] Hematocrit (Bld) [Volume fraction] 30.2 % Low 40-54 [facility] Comment on above: Order Comment: 215-2 Performed By: #### L 100.0500, L500.2500 ####[facility] [address] [place], [address] Hemoglobin (Bld) [Mass/Vol] 9.4 g/dL Low 13.0-16. 5 [facility] Comment on above: Order Comment: 215-2 Performed By: #### L 100.0500, L500.2500 ####[facility] [address] [place], [address] MCH (RBC) [Entitic mass] 27.2 pg Normal 27.0-32.0 [facility] Comment on above: Order Comment: 215-2 Performed By: #### L 100.0500, L500.2500 ####[facility] [address] [place], [address] MCHC (RBC) [Mass/Vol] 31.1 g/dL Low 32-36 [facility] Comment on above: Order Comment: 215-2 Performed By: #### L 100.0500, L500.2500 ####[facility] [address] [place], [address] MCV (RBC) [Entitic vol] 87.3 fL Normal 80-94 [facility] Comment on above: Order Comment: 215-2 Performed By: #### L 100.0500, L500.2500 ####[facility] [address] [place], [address] Platelet mean volume (Bld) [Entitic vol] 9.4 fL Normal 6.2-12.0 [facility] Comment on above: Order Comment: 215-2 Performed By: #### L 100.0500, L500.2500 ####[facility] [address] [place], [address] Platelets (Bld) [#/Vol] 368 10*3/uL Normal 150-450 [facility] Comment on above: Order Comment: 215-2 Performed By: #### L 100.0500, L500.2500 ####[facility] [address] [place], [address] RBC (Bld) [#/Vol] 3.46 10*6/uL Low 4.6-6.2 [facility] Comment on above: Order Comment: 215-2 Performed By: #### L 100.0500, L500.2500 ####[facility] [address] [place], [address] RDW SD 43.8 fl Normal 35.1-43.9 [facility] Comment on above: Order Comment: 215-2 Performed By: #### L 100.0500, L500.2500 ####[facility] [address] [place], [address] WBC (Bld) [#/Vol] 10.0 10*3/uL Normal 4.4-11.0 [facility] Comment on above: Order Comment: 215-2 Performed By: #### L 100.0500, L500.2500 ####[facility] [address] [place], [address] Carbon dioxide, total [Moles /volume] in Central venous bloodOrdered By: Walter Becker on 02-18-2025 CO2 [Moles/Vol] 27.8 mmol/L 21.0-32.0 [facility] Chloride assayOrdered By: Horner on 02-18-2025 Chloride [Moles/Vol] 105 mmol/L 98-108 [facility] Erythrocyte distribution wid th ratioOrdered By: Walter Becker on 02-18-2025 Erythrocyte distribution width (RBC) [Ratio] 13.8 % 11.6-14.6 [facility] Erythrocyte distribution wid th standard deviationOrdered By: Walter Becker on 02-18-2025 Erythrocyte distribution width (RBC) [Ratio] 43.8 fl 35.1-43.9 [facility] Glomerular filtration rate ( GFR) estimation/1.73 sq m using serum, plasma, or whole bOrdered By: Walter Becker on 02-18-2025 GFR/1.73 sq M.predicted among non-blacks MDRD (S/P/Bld) [Vol rate/Area] 51 mL/min/{1.73_m2} Low >60 [facility] Hematocrit Auto (Bld) [Volum e fraction]Ordered By: Walter Becker on 02-18-2025 Hematocrit (Bld) [Volume fraction] 30.2 % Low 40-54 [facility] Hemoglobin measurementOrdere d By: Walter Becker on 02-18-2025 Hemoglobin (Bld) [Mass/Vol] 9.4 g/dL Low 13.0-16. 5 [facility] MCV (mean corpuscular volume ) determinationOrdered By: Walter Becker on 02-18-2025 MCV (RBC) [Entitic vol] 87.3 fL 80-94 [facility] Mean corpuscular hemoglobin (MCH) determinationOrdered By: Walter Becker on 02-18-2025 MCH (RBC) [Entitic mass] 27.2 pg 27.0-32.0 [facility] Platelet countOrdered By: Horner on 02-18-2025 Platelets (Bld) [#/Vol] 368 10*3/uL 150-450 [facility] Potassium measurement (mass/ volume)Ordered By: Walter Becker on 02-18-2025 Potassium (Unsp spec) [Mass/Vol] 4.0 mmol/L 3.3-5.1 [facility] RBC Auto (Bld) [#/Vol]Ordere d By: Walter Becker on 02-18-2025 RBC (Bld) [#/Vol] 3.46 10*6/uL Low 4.6-6.2 [facility] Serum creatinine measurement (mass/volume)Ordered By: Walter Becker on 02-18-2025 Creatinine [Mass/Vol] 1.42 mg/dL High 0.70-1.20 [facility] Serum glucose measurement (m ass/volume)Ordered By: Walter Becker on 02-18-2025 Glucose [Mass/Vol] 140 mg/dL High 70-99 [facility] Serum or plasma calcium antoine urement (mass/volume)Ordered By: Walter Becker on 02-18-2025 Calcium [Mass/Vol] 9.0 mg/dL 7.6-11.0 [facility] Serum or plasma urea nitroge n measurement (mass/volume)Ordered By: Walter Becker on 02-18-2025 Urea nitrogen [Mass/Vol] 41 mg/dL High 4-19 [facility] Sodium levelOrdered By: Walter Becker on 02-18-2025 Sodium [Moles/Vol] 143 mmol/L 133-145 [facility] White blood cell (WBC) count Ordered By: Walter Becker on 02-18-2025 WBC (Bld) [#/Vol] 10.0 10*3/uL 4.4-11.0 [facility] Anion gap in Serum or Plasma Ordered By: Walter Becker on 02-17-2025 Anion gap [Moles/Vol] 12 mmol/L 5- [facility] BUN/creatinine ratioOrdered By: Walter Becker on 02-17-2025 Urea nitrogen/Creatinine [Mass ratio] 26.5 mg/mg High - [facility] Basic Metabolic Profile (BMP )on 02-17-2025 BUN/CRE 26.5 RATIO High - [facility] Comment on above: Order Comment: 215-2 Performed By: #### L 100.0500, L500.2500 ####[facility] [address] [place], [address] Calcium [Mass/Vol] 9.1 mg/dL Normal 7.6-11.0 [facility] Comment on above: Order Comment: 215-2 Performed By: #### L 100.0500, L500.2500 ####[facility] [address] [place], [address] Chloride [Moles/Vol] 105 mmol/L Normal 98-108 [facility] Comment on above: Order Comment: 215-2 Performed By: #### L 100.0500, L500.2500 ####[facility] [address] [place], [address] CO2 [Moles/Vol] 26.3 mmol/L Normal 21.0-32.0 [facility] Comment on above: Order Comment: 215-2 Performed By: #### L 100.0500, L500.2500 ####[facility] [address] [place], [address] Creatinine [Mass/Vol] 1.48 mg/dL High 0.70-1.20 [facility] Comment on above: Order Comment: 215-2 Performed By: #### L 100.0500, L500.2500 ####[facility] [address] [place], [address] GAP 12 Normal 5-15 [facility] Comment on above: Order Comment: 215-2 Performed By: #### L 100.0500, L500.2500 ####[facility] [address] [place], [address] GFR/1.73 sq M.predicted among non-blacks MDRD (S/P/Bld) [Vol rate/Area] 48 mL/min/{1.73_m2} Low >60 [facility] Comment on above: Order Comment: 215-2 Result Comment: mL/m in/1.73m2 CKD-EPI Creatinine Equation (2020) Performed By: #### L 100.0500, L500.2500 ####[facility] [address] [place], [address] Glucose [Mass/Vol] 132 mg/dL High 70-99 [facility] Comment on above: Order Comment: 215-2 Performed By: #### L 100.0500, L500.2500 ####[facility] [address] [place], [address] Potassium [Moles/Vol] 3.7 mmol/L Normal 3.3-5.1 [facility] Comment on above: Order Comment: 215-2 Performed By: #### L 100.0500, L500.2500 ####[facility] [address] [place], [address] Sodium [Moles/Vol] 143 mmol/L Normal 133-145 [facility] Comment on above: Order Comment: 215-2 Performed By: #### L 100.0500, L500.2500 ####[facility] [address] [place], [address] Urea nitrogen [Mass/Vol] 39 mg/dL High 4-19 [facility] Comment on above: Order Comment: 215-2 Performed By: #### L 100.0500, L500.2500 ####[facility] [address] [place], [address] CBC-Complete Blood Cnt No Di ffon 02-17-2025 Erythrocyte distribution width (RBC) [Ratio] 13.8 % Normal 11.6-14.6 [facility] Comment on above: Order Comment: 215-2 Performed By: #### L 100.0500, L500.2500 ####[facility] [address] [place], [address] Hematocrit (Bld) [Volume fraction] 30.1 % Low 40-54 [facility] Comment on above: Order Comment: 215-2 Performed By: #### L 100.0500, L500.2500 ####[facility] [address] [place], [address] Hemoglobin (Bld) [Mass/Vol] 9.4 g/dL Low 13.0-16. 5 [facility] Comment on above: Order Comment: 215-2 Performed By: #### L 100.0500, L500.2500 ####[facility] [address] [place], [address] MCH (RBC) [Entitic mass] 27.4 pg Normal 27.0-32.0 [facility] Comment on above: Order Comment: 215-2 Performed By: #### L 100.0500, L500.2500 ####[facility] [address] [place], [address] MCHC (RBC) [Mass/Vol] 31.2 g/dL Low 32-36 [facility] Comment on above: Order Comment: 215-2 Performed By: #### L 100.0500, L500.2500 ####[facility] [address] [place], [address] MCV (RBC) [Entitic vol] 87.8 fL Normal 80-94 [facility] Comment on above: Order Comment: 215-2 Performed By: #### L 100.0500, L500.2500 ####[facility] [address] [place], [address] Platelet mean volume (Bld) [Entitic vol] 9.7 fL Normal 6.2-12.0 [facility] Comment on above: Order Comment: 215-2 Performed By: #### L 100.0500, L500.2500 ####[facility] [address] [place], [address] Platelets (Bld) [#/Vol] 385 10*3/uL Normal 150-450 [facility] Comment on above: Order Comment: 215-2 Performed By: #### L 100.0500, L500.2500 ####[facility] [address] [place], [address] RBC (Bld) [#/Vol] 3.43 10*6/uL Low 4.6-6.2 [facility] Comment on above: Order Comment: 215-2 Performed By: #### L 100.0500, L500.2500 ####[facility] [address] [place], [address] RDW SD 44.2 fl High 35.1-43.9 [facility] Comment on above: Order Comment: 215-2 Performed By: #### L 100.0500, L500.2500 ####[facility] [address] [place], [address] WBC (Bld) [#/Vol] 11.3 10*3/uL High 4.4-11.0 [facility] Comment on above: Order Comment: 215-2 Performed By: #### L 100.0500, L500.2500 ####[facility] [address] [place], [address] Carbon dioxide, total [Moles /volume] in Central venous bloodOrdered By: Walter Becker on 02-17-2025 CO2 [Moles/Vol] 26.3 mmol/L 21.0-32.0 [facility] Chloride assayOrdered By: Horner on 02-17-2025 Chloride [Moles/Vol] 105 mmol/L 98-108 [facility] Erythrocyte distribution wid th ratioOrdered By: Walter Becker on 02-17-2025 Erythrocyte distribution width (RBC) [Ratio] 13.8 % 11.6-14.6 [facility] Erythrocyte distribution wid th standard deviationOrdered By: Walter Becker on 02-17-2025 Erythrocyte distribution width (RBC) [Ratio] 44.2 fl High 35.1-43.9 [facility] Glomerular filtration rate ( GFR) estimation/1.73 sq m using serum, plasma, or whole bOrdered By: Walter Becker on 02-17-2025 GFR/1.73 sq M.predicted among non-blacks MDRD (S/P/Bld) [Vol rate/Area] 48 mL/min/{1.73_m2} Low >60 [facility] Hematocrit Auto (Bld) [Volum e fraction]Ordered By: Walter Becker on 02-17-2025 Hematocrit (Bld) [Volume fraction] 30.1 % Low 40-54 [facility] Hemoglobin measurementOrdere d By: Walter Becker on 02-17-2025 Hemoglobin (Bld) [Mass/Vol] 9.4 g/dL Low 13.0-16. 5 [facility] MCV (mean corpuscular volume ) determinationOrdered By: Walter Becker on 02-17-2025 MCV (RBC) [Entitic vol] 87.8 fL 80-94 [facility] Mean corpuscular hemoglobin (MCH) determinationOrdered By: Walter Becker on 02-17-2025 MCH (RBC) [Entitic mass] 27.4 pg 27.0-32.0 [facility] Platelet countOrdered By: Horner on 02-17-2025 Platelets (Bld) [#/Vol] 385 10*3/uL 150-450 [facility] Potassium measurement (mass/ volume)Ordered By: Walter Becker on 02-17-2025 Potassium (Unsp spec) [Mass/Vol] 3.7 mmol/L 3.3-5.1 [facility] RBC Auto (Bld) [#/Vol]Ordere d By: Walter Becker on 02-17-2025 RBC (Bld) [#/Vol] 3.43 10*6/uL Low 4.6-6.2 [facility] Serum creatinine measurement (mass/volume)Ordered By: Walter Becker on 02-17-2025 Creatinine [Mass/Vol] 1.48 mg/dL High 0.70-1.20 [facility] Serum glucose measurement (m ass/volume)Ordered By: Walter Becker on 02-17-2025 Glucose [Mass/Vol] 132 mg/dL High 70-99 [facility] Serum or plasma calcium antoine urement (mass/volume)Ordered By: Walter Becker on 02-17-2025 Calcium [Mass/Vol] 9.1 mg/dL 7.6-11.0 [facility] Serum or plasma urea nitroge n measurement (mass/volume)Ordered By: Walter Becker on 02-17-2025 Urea nitrogen [Mass/Vol] 39 mg/dL High 4-19 [facility] Sodium levelOrdered By: Walter Becker on 02-17-2025 Sodium [Moles/Vol] 143 mmol/L 133-145 [facility] White blood cell (WBC) count Ordered By: Walter Becker on 02-17-2025 WBC (Bld) [#/Vol] 11.3 10*3/uL High 4.4-11.0 [facility] Anion gap in Serum or Plasma Ordered By: Walter Becker on 02-16-2025 Anion gap [Moles/Vol] 11 mmol/L 5-15 [facility] BUN/creatinine ratioOrdered By: Walter Becker on 02-16-2025 Urea nitrogen/Creatinine [Mass ratio] 25.8 mg/mg High 10- [facility] Basic Metabolic Profile (BMP )on 02-16-2025 BUN/CRE 25.8 RATIO High 10- [facility] Comment on above: Order Comment: 215.2 Performed By: #### L 100.0500, L500.2500 ####[facility] [address] [place], [address] Calcium [Mass/Vol] 9.0 mg/dL Normal 7.6-11.0 [facility] Comment on above: Order Comment: 215.2 Performed By: #### L 100.0500, L500.2500 ####[facility] [address] [place], [address] Chloride [Moles/Vol] 104 mmol/L Normal 98-108 [facility] Comment on above: Order Comment: 215.2 Performed By: #### L 100.0500, L500.2500 ####[facility] [address] [place], [address] CO2 [Moles/Vol] 26.2 mmol/L Normal 21.0-32.0 [facility] Comment on above: Order Comment: 215.2 Performed By: #### L 100.0500, L500.2500 ####[facility] [address] [place], [address] Creatinine [Mass/Vol] 1.46 mg/dL High 0.70-1.20 [facility] Comment on above: Order Comment: 215.2 Performed By: #### L 100.0500, L500.2500 ####[facility] [address] [place], [address] GAP 11 Normal 5-15 [facility] Comment on above: Order Comment: 215.2 Performed By: #### L 100.0500, L500.2500 ####[facility] [address] [place], [address] GFR/1.73 sq M.predicted among non-blacks MDRD (S/P/Bld) [Vol rate/Area] 49 mL/min/{1.73_m2} Low >60 [facility] Comment on above: Order Comment: 215.2 Result Comment: mL/m in/1.73m2 CKD-EPI Creatinine Equation (2020) Performed By: #### L 100.0500, L500.2500 ####[facility] [address] [place], [address] Glucose [Mass/Vol] 137 mg/dL High 70-99 [facility] Comment on above: Order Comment: 215.2 Performed By: #### L 100.0500, L500.2500 ####[facility] [address] [place], [address] Potassium [Moles/Vol] 3.8 mmol/L Normal 3.3-5.1 [facility] Comment on above: Order Comment: 215.2 Performed By: #### L 100.0500, L500.2500 ####[facility] [address] [place], [address] Sodium [Moles/Vol] 142 mmol/L Normal 133-145 [facility] Comment on above: Order Comment: 215.2 Performed By: #### L 100.0500, L500.2500 ####[facility] [address] [place], [address] Urea nitrogen [Mass/Vol] 38 mg/dL High 4-19 [facility] Comment on above: Order Comment: 215.2 Performed By: #### L 100.0500, L500.2500 ####[facility] [address] [place], [address] CBC-Complete Blood Cnt No Di ffon 02-16-2025 Erythrocyte distribution width (RBC) [Ratio] 13.6 % Normal 11.6-14.6 [facility] Comment on above: Order Comment: 215.2 Performed By: #### L 100.0500, L500.2500 ####[facility] [address] [place], [address] Hematocrit (Bld) [Volume fraction] 29.5 % Low 40-54 [facility] Comment on above: Order Comment: 215.2 Performed By: #### L 100.0500, L500.2500 ####[facility] [address] [place], [address] Hemoglobin (Bld) [Mass/Vol] 9.3 g/dL Low 13.0-16. 5 [facility] Comment on above: Order Comment: 215.2 Performed By: #### L 100.0500, L500.2500 ####[facility] [address] [place], [address] MCH (RBC) [Entitic mass] 27.1 pg Normal 27.0-32.0 [facility] Comment on above: Order Comment: 215.2 Performed By: #### L 100.0500, L500.2500 ####[facility] [address] [place], [address] MCHC (RBC) [Mass/Vol] 31.5 g/dL Low 32-36 [facility] Comment on above: Order Comment: 215.2 Performed By: #### L 100.0500, L500.2500 ####[facility] [address] [place], [address] MCV (RBC) [Entitic vol] 86.0 fL Normal 80-94 [facility] Comment on above: Order Comment: 215.2 Performed By: #### L 100.0500, L500.2500 ####[facility] [address] [place], [address] Platelet mean volume (Bld) [Entitic vol] 9.4 fL Normal 6.2-12.0 [facility] Comment on above: Order Comment: 215.2 Performed By: #### L 100.0500, L500.2500 ####[facility] [address] [place], [address] Platelets (Bld) [#/Vol] 360 10*3/uL Normal 150-450 [facility] Comment on above: Order Comment: 215.2 Performed By: #### L 100.0500, L500.2500 ####[facility] [address] [place], [address] RBC (Bld) [#/Vol] 3.43 10*6/uL Low 4.6-6.2 [facility] Comment on above: Order Comment: 215.2 Performed By: #### L 100.0500, L500.2500 ####[facility] [address] [place], [address] RDW SD 42.7 fl Normal 35.1-43.9 [facility] Comment on above: Order Comment: 215.2 Performed By: #### L 100.0500, L500.2500 ####[facility] [address] [place], [address] WBC (Bld) [#/Vol] 12.5 10*3/uL High 4.4-11.0 [facility] Comment on above: Order Comment: 215.2 Performed By: #### L 100.0500, L500.2500 ####[facility] [address] [place], [address] Carbon dioxide, total [Moles /volume] in Central venous bloodOrdered By: Walter Becker on 02-16-2025 CO2 [Moles/Vol] 26.2 mmol/L 21.0-32.0 [facility] Chloride assayOrdered By: Horner on 02-16-2025 Chloride [Moles/Vol] 104 mmol/L 98-108 [facility] Erythrocyte distribution wid th ratioOrdered By: Walter Becker on 02-16-2025 Erythrocyte distribution width (RBC) [Ratio] 13.6 % 11.6-14.6 [facility] Erythrocyte distribution wid th standard deviationOrdered By: Walter Becker on 02-16-2025 Erythrocyte distribution width (RBC) [Ratio] 42.7 fl 35.1-43.9 [facility] Glomerular filtration rate ( GFR) estimation/1.73 sq m using serum, plasma, or whole bOrdered By: Walter Becker on 02-16-2025 GFR/1.73 sq M.predicted among non-blacks MDRD (S/P/Bld) [Vol rate/Area] 49 mL/min/{1.73_m2} Low >60 [facility] Hematocrit Auto (Bld) [Volum e fraction]Ordered By: Walter Becker on 02-16-2025 Hematocrit (Bld) [Volume fraction] 29.5 % Low 40-54 [facility] Hemoglobin measurementOrdere d By: Walter Becker on 02-16-2025 Hemoglobin (Bld) [Mass/Vol] 9.3 g/dL Low 13.0-16. 5 [facility] MCV (mean corpuscular volume ) determinationOrdered By: Walter Becker on 02-16-2025 MCV (RBC) [Entitic vol] 86.0 fL 80-94 [facility] Mean corpuscular hemoglobin (MCH) determinationOrdered By: Walter Becker on 02-16-2025 MCH (RBC) [Entitic mass] 27.1 pg 27.0-32.0 [facility] Platelet countOrdered By: Horner on 02-16-2025 Platelets (Bld) [#/Vol] 360 10*3/uL 150-450 [facility] Potassium measurement (mass/ volume)Ordered By: Walter Becker on 02-16-2025 Potassium (Unsp spec) [Mass/Vol] 3.8 mmol/L 3.3-5.1 [facility] RBC Auto (Bld) [#/Vol]Ordere d By: Walter Becker on 02-16-2025 RBC (Bld) [#/Vol] 3.43 10*6/uL Low 4.6-6.2 [facility] Serum creatinine measurement (mass/volume)Ordered By: Walter Becker on 02-16-2025 Creatinine [Mass/Vol] 1.46 mg/dL High 0.70-1.20 [facility] Serum glucose measurement (m ass/volume)Ordered By: Walter Becker on 02-16-2025 Glucose [Mass/Vol] 137 mg/dL High 70-99 [facility] Serum or plasma calcium antoine urement (mass/volume)Ordered By: Walter Becker on 02-16-2025 Calcium [Mass/Vol] 9.0 mg/dL 7.6-11.0 [facility] Serum or plasma urea nitroge n measurement (mass/volume)Ordered By: Walter Becker on 02-16-2025 Urea nitrogen [Mass/Vol] 38 mg/dL High 4-19 [facility] Sodium levelOrdered By: Walter Becker on 02-16-2025 Sodium [Moles/Vol] 142 mmol/L 133-145 [facility] White blood cell (WBC) count Ordered By: Walter Becker on 02-16-2025 WBC (Bld) [#/Vol] 12.5 10*3/uL High 4.4-11.0 [facility] Anion gap in Serum or Plasma Ordered By: Walter Becker on 02-15-2025 Anion gap [Moles/Vol] 12 mmol/L 5-15 [facility] Automated blood erythrocyte countOrdered By: Walter Becker on 02-15-2025 RBC (Bld) [#/Vol] 3.38 10*6/uL Low 4.6-6.2 [facility] Comment on above: Order Comment: 215-2 Performed By: #### L 100.0500, L500.2500 ####[facility] [address] [place], [place], [id number] Automated blood hematocrit ( percentage)Ordered By: Walter Becker on 02-15-2025 Hematocrit (Bld) [Volume fraction] 29.3 % Low 40-54 [facility] Comment on above: Order Comment: 215-2 Performed By: #### L 100.0500, L500.2500 ####[facility] [address] [place], [address] BUN/creatinine ratioOrdered By: Walter Becker on 02-15-2025 Urea nitrogen/Creatinine [Mass ratio] 24.7 mg/mg High 10-20 [facility] Basic Metabolic Profile (BMP )on 02-15-2025 BUN/CRE 24.7 RATIO High 10-20 [facility] Comment on above: Order Comment: 215-2 Performed By: #### L 100.0500, L500.2500 ####[facility] [address] [place], [address] Calcium [Mass/Vol] 9.0 mg/dL Normal 7.6-11.0 [facility] Comment on above: Order Comment: 215-2 Performed By: #### L 100.0500, L500.2500 ####[facility] [address] [place], [address] Chloride [Moles/Vol] 105 mmol/L Normal 98-108 [facility] Comment on above: Order Comment: 215-2 Performed By: #### L 100.0500, L500.2500 ####[facility] [address] [place], [address] CO2 [Moles/Vol] 24.2 mmol/L Normal 21.0-32.0 [facility] Comment on above: Order Comment: 215-2 Performed By: #### L 100.0500, L500.2500 ####[facility] [address] [place], [address] Creatinine [Mass/Vol] 1.46 mg/dL High 0.70-1.20 [facility] Comment on above: Order Comment: 215-2 Performed By: #### L 100.0500, L500.2500 ####[facility] [address] [place], [address] GAP 12 Normal 5-15 [facility] Comment on above: Order Comment: 215-2 Performed By: #### L 100.0500, L500.2500 ####[facility] [address] [place], [address] GFR/1.73 sq M.predicted among non-blacks MDRD (S/P/Bld) [Vol rate/Area] 49 mL/min/{1.73_m2} Low >60 [facility] Comment on above: Order Comment: 215-2 Result Comment: mL/m in/1.73m2 CKD-EPI Creatinine Equation (2020) Performed By: #### L 100.0500, L500.2500 ####[facility] [address] [place], [address] Glucose [Mass/Vol] 116 mg/dL High 70-99 [facility] Comment on above: Order Comment: 215-2 Performed By: #### L 100.0500, L500.2500 ####[facility] [address] [place], [address] Potassium [Moles/Vol] 3.7 mmol/L Normal 3.3-5.1 [facility] Comment on above: Order Comment: 215-2 Performed By: #### L 100.0500, L500.2500 ####[facility] [address] [place], [address] Sodium [Moles/Vol] 141 mmol/L Normal 133-145 [facility] Comment on above: Order Comment: 215-2 Performed By: #### L 100.0500, L500.2500 ####[facility] [address] [place], [address] Urea nitrogen [Mass/Vol] 36 mg/dL High 4-19 [facility] Comment on above: Order Comment: 215-2 Performed By: #### L 100.0500, L500.2500 ####[facility] [address] [place], [address] CBC-Complete Blood Cnt No Di ffon 02-15-2025 MCHC (RBC) [Mass/Vol] 31.7 g/dL Low 32-36 [facility] Comment on above: Order Comment: 215-2 Performed By: #### L 100.0500, L500.2500 ####[facility] [address] [place], [address] Platelet mean volume (Bld) [Entitic vol] 9.6 fL Normal 6.2-12.0 [facility] Comment on above: Order Comment: 215-2 Performed By: #### L 100.0500, L500.2500 ####[facility] [address] [place], [address] RDW SD 42.6 fl Normal 35.1-43.9 [facility] Comment on above: Order Comment: 215-2 Performed By: #### L 100.0500, L500.2500 ####[facility] [address] [place], [address] Carbon dioxide, total [Moles /volume] in Central venous bloodOrdered By: Walter Becker on 02-15-2025 CO2 [Moles/Vol] 24.2 mmol/L 21.0-32.0 [facility] Chloride assayOrdered By: Horner on 02-15-2025 Chloride [Moles/Vol] 105 mmol/L 98-108 [facility] Erythrocyte distribution wid th ratioOrdered By: Walter Becker on 02-15-2025 Erythrocyte distribution width (RBC) [Ratio] 13.4 % Normal 11.6-14.6 [facility] Comment on above: Order Comment: 215-2 Performed By: #### L 100.0500, L500.2500 ####[facility] [address] [place], [address] Erythrocyte distribution wid th standard deviationOrdered By: Walter Becker on 02-15-2025 Erythrocyte distribution width (RBC) [Ratio] 42.6 fl 35.1-43.9 [facility] Glomerular filtration rate ( GFR) estimation/1.73 sq m using serum, plasma, or whole bOrdered By: Walter Becker on 02-15-2025 GFR/1.73 sq M.predicted among non-blacks MDRD (S/P/Bld) [Vol rate/Area] 49 mL/min/{1.73_m2} Low >60 [facility] Hemoglobin measurementOrdere d By: Walter Bekcer on 02-15-2025 Hemoglobin (Bld) [Mass/Vol] 9.3 g/dL Low 13.0-16. 5 [facility] Comment on above: Order Comment: 215-2 Performed By: #### L 100.0500, L500.2500 ####[facility] [address] [place], [address] MCV (mean corpuscular volume ) determinationOrdered By: Walter Becker on 02-15-2025 MCV (RBC) [Entitic vol] 86.7 fL Normal 80-94 [facility] Comment on above: Order Comment: 215-2 Performed By: #### L 100.0500, L500.2500 ####[facility] [address] [place], [address] Mean corpuscular hemoglobin (MCH) determinationOrdered By: Walter Becker on 02-15-2025 MCH (RBC) [Entitic mass] 27.5 pg Normal 27.0-32.0 [facility] Comment on above: Order Comment: 215-2 Performed By: #### L 100.0500, L500.2500 ####[facility] [address] [place], [address] Platelet countOrdered By: Horner on 02-15-2025 Platelets (Bld) [#/Vol] 361 10*3/uL Normal 150-450 [facility] Comment on above: Order Comment: 215-2 Performed By: #### L 100.0500, L500.2500 ####[facility] [address] [place], [address] Potassium measurement (mass/ volume)Ordered By: Walter Becker on 02-15-2025 Potassium (Unsp spec) [Mass/Vol] 3.7 mmol/L 3.3-5.1 [facility] Serum creatinine measurement (mass/volume)Ordered By: Walter Becker on 02-15-2025 Creatinine [Mass/Vol] 1.46 mg/dL High 0.70-1.20 [facility] Serum glucose measurement (m ass/volume)Ordered By: Walter Becker on 02-15-2025 Glucose [Mass/Vol] 116 mg/dL High 70-99 [facility] Serum or plasma calcium antoine urement (mass/volume)Ordered By: Walter Becker on 02-15-2025 Calcium [Mass/Vol] 9.0 mg/dL 7.6-11.0 [facility] Serum or plasma urea nitroge n measurement (mass/volume)Ordered By: Walter Becker on 02-15-2025 Urea nitrogen [Mass/Vol] 36 mg/dL High 4-19 [facility] Sodium levelOrdered By: Walter Becker on 02-15-2025 Sodium [Moles/Vol] 141 mmol/L 133-145 [facility] White blood cell (WBC) count Ordered By: Walter Becker on 02-15-2025 WBC (Bld) [#/Vol] 11.7 10*3/uL High 4.4-11.0 [facility] Comment on above: Order Comment: 215-2 Performed By: #### L 100.0500, L500.2500 ####[facility] [address] [place], [place], [id number] Absolute lymphocyte countOrd ered By: Hugo Cervantes on 02-11-2025 Lymphocytes Auto (Unsp spec) [#/Vol] 1.12 10*3/uL 0.83-4.51 [facility] Anion gap in Serum or Plasma Ordered By: Hugo Cervantes on 02-11-2025 Anion gap [Moles/Vol] 14 mmol/L 5-15 [facility] Automated lymphocyte count a s percentage of total leukocytesOrdered By: Hugo Cervantes on 02-11-2025 Lymphocytes/100 WBC Auto (Unsp spec) 9.9 % Low 19-41 [facility] BUN/creatinine ratioOrdered By: Hugo Cervantes on 02-11-2025 Urea nitrogen/Creatinine [Mass ratio] 15.3 mg/mg 10- [facility] Basic Metabolic Profile (BMP )on 02-11-2025 BUN/CRE 15.3 RATIO Normal - [facility] Comment on above: Result Comment: CLOT HERMILO, SPOKE WITH KT Performed By: #### L 500.2500, L100.0100 ####[facility] [address] [place], [address] Calcium [Mass/Vol] 9.0 mg/dL Normal 7.6-11.0 [facility] Comment on above: Result Comment: CLOT HERMILO, SPOKE WITH KT Performed By: #### L 500.2500, L100.0100 ####[facility] [address] [place], [address] Chloride [Moles/Vol] 109 mmol/L High 98-108 [facility] Comment on above: Result Comment: NICOL AKHTAR, SPOKE WITH KT Performed By: #### L 500.2500, L100.0100 ####[facility] [address] [place], [address] CO2 [Moles/Vol] 22.1 mmol/L Normal 21.0-32.0 [facility] Comment on above: Result Comment: NICOL AKHTAR, SPOKE WITH KT Performed By: #### L 500.2500, L100.0100 ####[facility] [address] [place], [address] Creatinine [Mass/Vol] 1.55 mg/dL High 0.70-1.20 [facility] Comment on above: Result Comment: NICOL AKHTAR, SPOKE WITH KT Performed By: #### L 500.2500, L100.0100 ####[facility] [address] [place], [address] ECRCL 52.57 ml/min Normal 50-250 [facility] Comment on above: Performed By: #### L 500.2500, L100.0100 ####[facility] [address] [place], [address] GAP 14 Normal 5-15 [facility] Comment on above: Result Comment: CLOT HERMIOL, SPOKE WITH KT Performed By: #### L 500.2500, L100.0100 ####[facility] [address] [place], [address] GFR/1.73 sq M.predicted among non-blacks MDRD (S/P/Bld) [Vol rate/Area] 46 mL/min/{1.73_m2} Low >60 [facility] Comment on above: Result Comment: mL/m in/1.73m2 CKD-EPI Creatinine Equation (2020) Performed By: #### L 500.2500, L100.0100 ####[facility] [address] [place], [address] Glucose [Mass/Vol] 155 mg/dL High 70-99 [facility] Comment on above: Result Comment: NICOL AKHTAR, SPOKE WITH KT Performed By: #### L 500.2500, L100.0100 ####[facility] [address] [place], [address] Potassium [Moles/Vol] 3.7 mmol/L Normal 3.3-5.1 [facility] Comment on above: Result Comment: NICOL AKHTAR, SPOKE WITH KT Performed By: #### L 500.2500, L100.0100 ####[facility] [address] [place], [address] Sodium [Moles/Vol] 145 mmol/L Normal 133-145 [facility] Comment on above: Result Comment: NICOL AKHTAR, SPOKE WITH KT Performed By: #### L 500.2500, L100.0100 ####[facility] [address] [place], [address] Urea nitrogen [Mass/Vol] 24 mg/dL High 4-19 [facility] Comment on above: Result Comment: NICOL AKHTAR, SPOKE WITH KT Performed By: #### L 500.2500, L100.0100 ####[facility] [address] [place], [address] Basophil percentageOrdered B y: Hugo Cervantes on 02-11-2025 Basophils/100 WBC (Bld) 0.5 % 0-1 [facility] Bedside Glucoseon 02-11-2025 FINGERSTICK GLU 187 mg/dL High 74-106 [facility] Comment on above: Result Comment: JAZ GEMENT OF PATIENT CARE PER NURSING PROTOCOL Performed By: #### L 501.080 ####[facility] [address] [place], [address] FINGERSTICK GLU 220 mg/dL High 74-106 [facility] Comment on above: Result Comment: JAZ GEMENT OF PATIENT CARE PER NURSING PROTOCOL Performed By: #### L 501.080 ####[facility] [address] [place], [address] FINGERSTICK GLU 137 mg/dL High 74-106 [facility] Comment on above: Result Comment: JAZ GEMENT OF PATIENT CARE PER NURSING PROTOCOL Performed By: #### L 501.080 ####[facility] [address] [place], [address] CBC W/Diff, Automatedon 07- Absolute Lymph 1.12 X10 3/uL Normal 0.83-4.51 [facility] Comment on above: Performed By: #### L 100.0100 ####[facility] [address] [place], [address] Absolute Neut 8.7 X10 3/uL High 2.0-7.7 [facility] Comment on above: Performed By: #### L 100.0100 ####[facility] [address] [place], [address] Basophils/100 WBC (Bld) 0.5 % Normal 0-1 [facility] Comment on above: Performed By: #### L 100.0100 ####[facility] [address] [place], [address] Eosinophils/100 WBC (Bld) 4.1 % Normal 0-5 [facility] Comment on above: Performed By: #### L 100.0100 ####[facility] [address] [place], [address] Erythrocyte distribution width (RBC) [Ratio] 13.7 % Normal 11.6-14.6 [facility] Comment on above: Performed By: #### L 100.0100 ####[facility] [address] [place], [address] Hematocrit (Bld) [Volume fraction] 31.3 % Low 40-54 [facility] Comment on above: Performed By: #### L 100.0100 ####[facility] [address] [place], [address] Hemoglobin (Bld) [Mass/Vol] 9.9 g/dL Low 13.0-16. 5 [facility] Comment on above: Performed By: #### L 100.0100 ####[facility] [address] [place], [address] IG% 2.100 High 0.0-0.9 [facility] Comment on above: Result Comment: IG% - Immature Granulocytes (promyelocytes, myelocytes andmetamyelocytes) > 1% indicates that a LEFT SHIFT is Present. Performed By: #### L 100.0100 ####[facility] [address] [place], [address] Lymphocytes/100 WBC (Bld) 9.9 % Low 19-41 [facility] Comment on above: Performed By: #### L 100.0100 ####[facility] [address] [place], [address] MCH (RBC) [Entitic mass] 27.6 pg Normal 27.0-32.0 [facility] Comment on above: Performed By: #### L 100.0100 ####[facility] [address] [place], [address] MCHC (RBC) [Mass/Vol] 31.6 g/dL Low 32-36 [facility] Comment on above: Performed By: #### L 100.0100 ####[facility] [address] [place], [address] MCV (RBC) [Entitic vol] 87.2 fL Normal 80-94 [facility] Comment on above: Performed By: #### L 100.0100 ####[facility] [address] [place], [address] Monocytes/100 WBC (Bld) 7.1 % Normal 0-10 [facility] Comment on above: Performed By: #### L 100.0100 ####[facility] [address] [place], [address] Neutrophils/100 WBC (Bld) 76.3 % High 47-70 [facility] Comment on above: Performed By: #### L 100.0100 ####[facility] [address] [place], [address] Nucleated RBC (Bld) [#/Vol] 0 10*3/uL Normal 0-5 [facility] Comment on above: Performed By: #### L 100.0100 ####[facility] [address] [place], [address] Platelet mean volume (Bld) [Entitic vol] 9.1 fL Normal 6.2-12.0 [facility] Comment on above: Performed By: #### L 100.0100 ####[facility] [address] [place], [address] Platelets (Bld) [#/Vol] 308 10*3/uL Normal 150-450 [facility] Comment on above: Performed By: #### L 100.0100 ####[facility] [address] [place], [address] RBC (Bld) [#/Vol] 3.59 10*6/uL Low 4.6-6.2 [facility] Comment on above: Performed By: #### L 100.0100 ####[facility] [address] [place], [address] RDW SD 44.1 fl High 35.1-43.9 [facility] Comment on above: Performed By: #### L 100.0100 ####[facility] [address] [place], [address] WBC (Bld) [#/Vol] 11.3 10*3/uL High 4.4-11.0 [facility] Comment on above: Performed By: #### L 100.0100 ####[facility] [address] [place], [address] Absolute Neut Normal 2.0-7.7 [facility] Comment on above: Result Comment: DUPL ICATE Performed By: #### L 500.2500, L100.0100 ####[facility] [address] [place], [address] HCT Normal 40-54 [facility] Comment on above: Result Comment: DUPL ICATE Performed By: #### L 500.2500, L100.0100 ####[facility] [address] [place], [address] HGB Normal 13.0-16.5 [facility] Comment on above: Result Comment: DUPL ICATE Performed By: #### L 500.2500, L100.0100 ####[facility] [address] [place], [address] MCH Normal 27.0-32.0 [facility] Comment on above: Result Comment: DUPL ICATE Performed By: #### L 500.2500, L100.0100 ####[facility] [address] [place], [address] MCHC Normal 32-36 [facility] Comment on above: Result Comment: DUPL ICATE Performed By: #### L 500.2500, L100.0100 ####[facility] [address] [place], [address] MCV Normal 80-94 [facility] Comment on above: Result Comment: DUPL ICATE Performed By: #### L 500.2500, L100.0100 ####[facility] [address] [place], [address] NEUT% Normal 47-70 [facility] Comment on above: Result Comment: DUPL ICATE Performed By: #### L 500.2500, L100.0100 ####[facility] [address] [place], [address] PLT Normal 150-450 [facility] Comment on above: Result Comment: DUPL ICATE Performed By: #### L 500.2500, L100.0100 ####[facility] [address] [place], [address] RBC Normal 4.6-6.2 [facility] Comment on above: Result Comment: DUPL ICATE Performed By: #### L 500.2500, L100.0100 ####[facility] [address] [place], [address] RDW CV Normal 11.6-14.6 [facility] Comment on above: Result Comment: DUPL ICATE Performed By: #### L 500.2500, L100.0100 ####[facility] [address] [place], [address] RDW SD Normal 35.1-43.9 [facility] Comment on above: Result Comment: DUPL ICATE Performed By: #### L 500.2500, L100.0100 ####[facility] [address] [place], [address] WBC Normal 4.4-11.0 [facility] Comment on above: Result Comment: DUPL ICATE Performed By: #### L 500.2500, L100.0100 ####[facility] [address] [place], [address] Carbon dioxide, total [Moles /volume] in Central venous bloodOrdered By: Hugo Cervantes on 02-11-2025 CO2 [Moles/Vol] 22.1 mmol/L 21.0-32.0 [facility] Chloride assayOrdered By: Shala Cervantes on 02-11-2025 Chloride [Moles/Vol] 109 mmol/L High 98-108 [facility] Electrocardiogram reportOrde red By: Júnior Chandra on 02-11-2025 EKG study [facility] Other Phone: Eosinophil percentageOrdered By: Hugo Cervantes on 02-11-2025 Eosinophils/100 WBC (Bld) 4.1 % 0-5 [facility] Erythrocyte distribution wid th ratioOrdered By: Hugo Cervantes on 02-11-2025 Erythrocyte distribution width (RBC) [Ratio] 13.7 % 11.6-14.6 [facility] Erythrocyte distribution wid th standard deviationOrdered By: Hugo Cervantes on 02-11-2025 Erythrocyte distribution width (RBC) [Ratio] 44.1 fl High 35.1-43.9 [facility] Glomerular filtration rate ( GFR) estimation/1.73 sq m using serum, plasma, or whole bOrdered By: Hugo Cervantes on 02-11-2025 GFR/1.73 sq M.predicted among non-blacks MDRD (S/P/Bld) [Vol rate/Area] 46 mL/min/{1.73_m2} Low >60 [facility] Glucose measurement at bedsi deOrdered By: Hugo Cervantes on 02-11-2025 Glucose [Mass/Vol] 187 mg/dL High 74-106 [facility] Hematocrit Auto (Bld) [Volum e fraction]Ordered By: Hugo Cervantes on 02-11-2025 Hematocrit (Bld) [Volume fraction] 31.3 % Low 40-54 [facility] Hemoglobin measurementOrdere d By: Hugo Cervantes on 02-11-2025 Hemoglobin (Bld) [Mass/Vol] 9.9 g/dL Low 13.0-16. 5 [facility] Immature granulocytes/100 WB C Auto (Bld)Ordered By: Hugo Cervantes on 02-11-2025 Immature granulocytes/100 WBC (Bld) 2.100 % High 0.0-0.9 [facility] MCV (mean corpuscular volume ) determinationOrdered By: Hugo Cervantes on 02-11-2025 MCV (RBC) [Entitic vol] 87.2 fL 80-94 [facility] Mean corpuscular hemoglobin (MCH) determinationOrdered By: Hugo Cervantes on 02-11-2025 MCH (RBC) [Entitic mass] 27.6 pg 27.0-32.0 [facility] Monocyte percentageOrdered B y: Hugo Cervantes on 02-11-2025 Monocytes/100 WBC (Bld) 7.1 % 0-10 [facility] Neutrophil percentageOrdered By: Hugo Cervantes on 02-11-2025 Neutrophils/100 WBC (Bld) 76.3 % High 47-70 [facility] Platelet countOrdered By: Shala Cervantes on 02-11-2025 Platelets (Bld) [#/Vol] 308 10*3/uL 150-450 [facility] Potassium measurement (mass/ volume)Ordered By: Hugo Cervantes on 02-11-2025 Potassium (Unsp spec) [Mass/Vol] 3.7 mmol/L 3.3-5.1 [facility] RBC Auto (Bld) [#/Vol]Ordere d By: Hugo Cervantes on 02-11-2025 RBC (Bld) [#/Vol] 3.59 10*6/uL Low 4.6-6.2 [facility] Serum creatinine measurement (mass/volume)Ordered By: Hugo Cervantes on 02-11-2025 Creatinine [Mass/Vol] 1.55 mg/dL High 0.70-1.20 [facility] Serum glucose measurement (m ass/volume)Ordered By: Hugo Cervantes on 02-11-2025 Glucose [Mass/Vol] 155 mg/dL High 70-99 [facility] Serum or plasma calcium antoine urement (mass/volume)Ordered By: Hugo Cervantes on 02-11-2025 Calcium [Mass/Vol] 9.0 mg/dL 7.6-11.0 [facility] Serum or plasma urea nitroge n measurement (mass/volume)Ordered By: Hugo Cervantes on 02-11-2025 Urea nitrogen [Mass/Vol] 24 mg/dL High 4-19 [facility] Sodium levelOrdered By: Tunde Cervantes on 02-11-2025 Sodium [Moles/Vol] 145 mmol/L 133-145 [facility] White blood cell (WBC) count Ordered By: Hugo Cervantes on 02-11-2025 WBC (Bld) [#/Vol] 11.3 10*3/uL High 4.4-11.0 [facility] 12 Lead EKGon 02-10-2025 12 Lead EKG Normal [facility] ACT Activated Clotting Timeo n 02-10-2025 ACTk CLOT TIME 222 sec High 74-137 [facility] Comment on above: Performed By: #### L 9100.0100 ####[facility] [address] [place], [address] ACTk CLOT TIME 205 sec High 74-137 [facility] Comment on above: Performed By: #### L 9100.0100 ####[facility] [address] [place], [address] AST(SGOT)on 02-10-2025 AST [Catalytic activity/Vol] 15 U/L Normal <=37 [facility] Comment on above: Performed By: #### L 300.3900, L300.4310, L501.4100 ####[facility] [address] [place], [address] Activated partial thrombopla stin time (aPTT) in platelet poor plasma by coagulation aOrdered By: Aneesh Ac on 02-10-2025 aPTT Coag (PPP) [Time] 33.4 s 24.1-36.2 [facility] Alanine Aminotransferas (SGP T)on 02-10-2025 ALT [Catalytic activity/Vol] 31 U/L Normal <=46 [facility] Comment on above: Performed By: #### L 100.0100, L500.2500, L501.4405 ####[facility] [address] [place], [address] Basic Metabolic Profile (BMP )on 02-10-2025 BUN/CRE 16.2 RATIO Normal 10-20 [facility] Comment on above: Performed By: #### L 100.0100, L500.2500, L501.4405 ####[facility] [address] [place], [address] Calcium [Mass/Vol] 9.1 mg/dL Normal 7.6-11.0 [facility] Comment on above: Performed By: #### L 100.0100, L500.2500, L501.4405 ####[facility] [address] [place], [address] Chloride [Moles/Vol] 108 mmol/L Normal 98-108 [facility] Comment on above: Performed By: #### L 100.0100, L500.2500, L501.4405 ####[facility] [address] [place], [address] CO2 [Moles/Vol] 23.0 mmol/L Normal 21.0-32.0 [facility] Comment on above: Performed By: #### L 100.0100, L500.2500, L501.4405 ####[facility] [address] [place], [address] Creatinine [Mass/Vol] 1.72 mg/dL High 0.70-1.20 [facility] Comment on above: Performed By: #### L 100.0100, L500.2500, L501.4405 ####[facility] [address] [place], [address] ECRCL 47.94 ml/min Low 50-250 [facility] Comment on above: Performed By: #### L 100.0100, L500.2500, L501.4405 ####[facility] [address] [place], [address] GAP 12 Normal 5-15 [facility] Comment on above: Performed By: #### L 100.0100, L500.2500, L501.4405 ####[facility] [address] [place], [address] GFR/1.73 sq M.predicted among non-blacks MDRD (S/P/Bld) [Vol rate/Area] 40 mL/min/{1.73_m2} Low >60 [facility] Comment on above: Result Comment: mL/m in/1.73m2 CKD-EPI Creatinine Equation (2020) Performed By: #### L 100.0100, L500.2500, L501.4405 ####[facility] [address] [place], [address] Glucose [Mass/Vol] 161 mg/dL High 70-99 [facility] Comment on above: Performed By: #### L 100.0100, L500.2500, L501.4405 ####[facility] [address] [place], [address] Potassium [Moles/Vol] 3.7 mmol/L Normal 3.3-5.1 [facility] Comment on above: Performed By: #### L 100.0100, L500.2500, L501.4405 ####[facility] [address] [place], [address] Sodium [Moles/Vol] 142 mmol/L Normal 133-145 [facility] Comment on above: Performed By: #### L 100.0100, L500.2500, L501.4405 ####[facility] [address] [place], [address] Urea nitrogen [Mass/Vol] 28 mg/dL High 4-19 [facility] Comment on above: Performed By: #### L 100.0100, L500.2500, L501.4405 ####[facility] [address] [place], [address] Bedside Glucoseon 02-10-2025 FINGERSTICK GLU 135 mg/dL High 74-106 [facility] Comment on above: Result Comment: JAZ GEMENT OF PATIENT CARE PER NURSING PROTOCOL Performed By: #### L 501.080 ####[facility] [address] [place], [address] FINGERSTICK GLU 132 mg/dL High 74-106 [facility] Comment on above: Result Comment: JAZ GEMENT OF PATIENT CARE PER NURSING PROTOCOL Performed By: #### L 501.080 ####[facility] [address] [place], [address] FINGERSTICK GLU 156 mg/dL High 74-106 [facility] Comment on above: Result Comment: JAZ GEMENT OF PATIENT CARE PER NURSING PROTOCOL Performed By: #### L 501.080 ####[facility] [address] [place], [address] FINGERSTICK GLU 156 mg/dL High 74-106 [facility] Comment on above: Result Comment: JAZ GEMENT OF PATIENT CARE PER NURSING PROTOCOL Performed By: #### L 501.080 ####[facility] [address] [place], [address] FINGERSTICK GLU 153 mg/dL High 74-106 [facility] Comment on above: Result Comment: JAZ BRANDON OF PATIENT CARE PER NURSING PROTOCOL Performed By: #### L 501.080 ####[facility] [address] [place], [address] CBC W/Diff, Automatedon 07-3 0-2024 Absolute Lymph 1.25 X10 3/uL Normal 0.83-4.51 [facility] Comment on above: Performed By: #### L 100.0100, L500.2500, L501.4405 ####[facility] [address] [place], [address] Absolute Neut 8.3 X10 3/uL High 2.0-7.7 [facility] Comment on above: Performed By: #### L 100.0100, L500.2500, L501.4405 ####[facility] [address] [place], [address] Basophils/100 WBC (Bld) 0.4 % Normal 0-1 [facility] Comment on above: Performed By: #### L 100.0100, L500.2500, L501.4405 ####[facility] [address] [place], [address] Eosinophils/100 WBC (Bld) 4.7 % Normal 0-5 [facility] Comment on above: Performed By: #### L 100.0100, L500.2500, L501.4405 ####[facility] [address] [place], [address] Erythrocyte distribution width (RBC) [Ratio] 13.7 % Normal 11.6-14.6 [facility] Comment on above: Performed By: #### L 100.0100, L500.2500, L501.4405 ####[facility] [address] [place], [address] Hematocrit (Bld) [Volume fraction] 30.5 % Low 40-54 [facility] Comment on above: Performed By: #### L 100.0100, L500.2500, L501.4405 ####[facility] [address] [place], [address] Hemoglobin (Bld) [Mass/Vol] 9.7 g/dL Low 13.0-16. 5 [facility] Comment on above: Performed By: #### L 100.0100, L500.2500, L501.4405 ####[facility] [address] [place], [address] IG% 2.300 High 0.0-0.9 [facility] Comment on above: Result Comment: IG% - Immature Granulocytes (promyelocytes, myelocytes andmetamyelocytes) > 1% indicates that a LEFT SHIFT is Present. Performed By: #### L 100.0100, L500.2500, L501.4405 ####[facility] [address] [place], [address] Lymphocytes/100 WBC (Bld) 11.0 % Low 19-41 [facility] Comment on above: Performed By: #### L 100.0100, L500.2500, L501.4405 ####[facility] [address] [place], [address] MCH (RBC) [Entitic mass] 27.6 pg Normal 27.0-32.0 [facility] Comment on above: Performed By: #### L 100.0100, L500.2500, L501.4405 ####[facility] [address] [place], [address] MCHC (RBC) [Mass/Vol] 31.8 g/dL Low 32-36 [facility] Comment on above: Performed By: #### L 100.0100, L500.2500, L501.4405 ####[facility] [address] [place], [address] MCV (RBC) [Entitic vol] 86.9 fL Normal 80-94 [facility] Comment on above: Performed By: #### L 100.0100, L500.2500, L501.4405 ####[facility] [address] [place], [address] Monocytes/100 WBC (Bld) 8.5 % Normal 0-10 [facility] Comment on above: Performed By: #### L 100.0100, L500.2500, L501.4405 ####[facility] [address] [place], [address] Neutrophils/100 WBC (Bld) 73.1 % High 47-70 [facility] Comment on above: Performed By: #### L 100.0100, L500.2500, L501.4405 ####[facility] [address] [place], [address] Nucleated RBC (Bld) [#/Vol] 0 10*3/uL Normal 0-5 [facility] Comment on above: Performed By: #### L 100.0100, L500.2500, L501.4405 ####[facility] [address] [place], [address] Platelet mean volume (Bld) [Entitic vol] 9.1 fL Normal 6.2-12.0 [facility] Comment on above: Performed By: #### L 100.0100, L500.2500, L501.4405 ####[facility] [address] [place], [address] Platelets (Bld) [#/Vol] 314 10*3/uL Normal 150-450 [facility] Comment on above: Performed By: #### L 100.0100, L500.2500, L501.4405 ####[facility] [address] [place], [address] RBC (Bld) [#/Vol] 3.51 10*6/uL Low 4.6-6.2 [facility] Comment on above: Performed By: #### L 100.0100, L500.2500, L501.4405 ####[facility] [address] [place], [address] RDW SD 43.9 fl Normal 35.1-43.9 [facility] Comment on above: Performed By: #### L 100.0100, L500.2500, L501.4405 ####[facility] [address] [place], [address] WBC (Bld) [#/Vol] 11.4 10*3/uL High 4.4-11.0 [facility] Comment on above: Performed By: #### L 100.0100, L500.2500, L501.4405 ####[facility] [address] [place], [address] Culture, Anaerobic Any Sourc ace 02-10-2025 CUAN UNK UNK Bone 5th left Metatarsal toe No anaerobic bacteria isolated. Normal [facility] Comment on above: Performed By: #### M 600.2000, M600.2200, M100.2000, M100.3000, M100.4001 ####[facility] [address] [place], [address] CUAN UNK UNK Clearance Fragment left 5th metatarsal toe No growth in 5 days. Normal [facility] Comment on above: Performed By: #### M 600.2000, M600.2200, M100.2000, M100.3000, M100.4001 ####[facility] [address] [place], [address] No Panel InformationOrdered By: Aneesh Ac on 02-10-2025 15 U/L <38 [facility] Operative Reporton Operative Report Normal [facility] Partial Thromboplast Timeon 02-10-2025 aPTT Coag (Bld) [Time] 33.4 s Normal 24.1-36.2 [facility] Comment on above: Performed By: #### L 300.3900, L300.4310, L501.4100 ####[facility] [address] [place], [address] Prothrombin Time w/INRon INR Coag (PPP) [Relative time] 1.3 {INR} Normal [facility] Comment on above: Performed By: #### L 300.3900, L300.4310, L501.4100 ####[facility] [address] [place], [address] PT Coag (PPP) [Time] 16.2 s High 11.7-14.9 [facility] Comment on above: Performed By: #### L 300.3900, L300.4310, L501.4100 ####[facility] [address] [place], [address] Prothrombin timeOrdered By: Aneesh Ac on 02-10-2025 PT Coag (PPP) [Time] 16.2 s High 11.7-14.9 [facility] Serum or plasma alanine davis otransferase (ALT) measurementOrdered By: Aneesh Ac on 02-10-2025 ALT [Catalytic activity/Vol] 31 U/L <47 [facility] Surgical pathology reportOrd ered By: Umm Garcia on 02-10-2025 Surgical pathology study [facility] Trough vancomycin levelOrder ed By: Hugo Cervantes on 02-10-2025 Vancomycin trough [Mass/Vol] 16.6 ug/mL High 5.0-15.0 [facility] Vancomycin, Trough Levelon 0 02-10-2025 VANCO, TROUGH 16.6 ug/mL High 5.0-15.0 [facility] Comment on above: Order Comment: Comme nts: Trough to be drawn 30 mins prior to scheduled [id number] Result Comment: Jalen mmended goal trough ranges [...] therapy recommended for serious lifethreatening infections include:- Ntotdtnhyv-Tmghhglepyuh-Xicmqihti (Ventilator/Healtcare Associated)-SepsisPLEASE CONTACT PHARMACY SERVICES (#9558) FOR INTERPRETATIONOF RESULTS. Performed By: #### L 501.8820 ####[facility] [address] [place], [address] Basic Metabolic Profile (BMP )on 02-09-2025 BUN/CRE 14.2 RATIO Normal 10-20 [facility] Comment on above: Performed By: #### L 500.2500, L100.0100 ####[facility] [address] [place], [address] Calcium [Mass/Vol] 9.0 mg/dL Normal 7.6-11.0 [facility] Comment on above: Performed By: #### L 500.2500, L100.0100 ####[facility] [address] [place], [address] Chloride [Moles/Vol] 110 mmol/L High 98-108 [facility] Comment on above: Performed By: #### L 500.2500, L100.0100 ####[facility] [address] [place], [address] CO2 [Moles/Vol] 21.6 mmol/L Normal 21.0-32.0 [facility] Comment on above: Performed By: #### L 500.2500, L100.0100 ####[facility] [address] [place], [address] Creatinine [Mass/Vol] 1.70 mg/dL High 0.70-1.20 [facility] Comment on above: Performed By: #### L 500.2500, L100.0100 ####[facility] [address] [place], [address] ECRCL 61.27 ml/min Normal 50-250 [facility] Comment on above: Performed By: #### L 500.2500, L100.0100 ####[facility] [address] [place], [address] GAP 12 Normal 5-15 [facility] Comment on above: Performed By: #### L 500.2500, L100.0100 ####[facility] [address] [place], [address] GFR/1.73 sq M.predicted among non-blacks MDRD (S/P/Bld) [Vol rate/Area] 41 mL/min/{1.73_m2} Low >60 [facility] Comment on above: Result Comment: mL/m in/1.73m2 CKD-EPI Creatinine Equation (2020) Performed By: #### L 500.2500, L100.0100 ####[facility] [address] [place], [address] Glucose [Mass/Vol] 142 mg/dL High 70-99 [facility] Comment on above: Performed By: #### L 500.2500, L100.0100 ####[facility] [address] [place], [address] Potassium [Moles/Vol] 4.1 mmol/L Normal 3.3-5.1 [facility] Comment on above: Result Comment: Hemo lysis present, Results??could be affected.?? Performed By: #### L 500.2500, L100.0100 ####[facility] [address] [place], [address] Sodium [Moles/Vol] 143 mmol/L Normal 133-145 [facility] Comment on above: Performed By: #### L 500.2500, L100.0100 ####[facility] [address] [place], [address] Urea nitrogen [Mass/Vol] 24 mg/dL High 4-19 [facility] Comment on above: Performed By: #### L 500.2500, L100.0100 ####[facility] [address] [place], [address] Bedside Glucoseon 02-09-2025 FINGERSTICK GLU 140 mg/dL High 74-106 [facility] Comment on above: Result Comment: JAZ GEMENT OF PATIENT CARE PER NURSING PROTOCOL Performed By: #### L 501.080 ####[facility] [address] [place], [address] FINGERSTICK GLU 145 mg/dL High 74-106 [facility] Comment on above: Result Comment: JAZ GEMENT OF PATIENT CARE PER NURSING PROTOCOL Performed By: #### L 501.080 ####[facility] [address] [place], [address] FINGERSTICK GLU 127 mg/dL High 74-106 [facility] Comment on above: Result Comment: JAZ GEMENT OF PATIENT CARE PER NURSING PROTOCOL Performed By: #### L 501.080 ####[facility] [address] [place], [address] Blood polychromasia detectio n by light microscopyOrdered By: Hugo Cervantes on 02-09-2025 Polychromasia LM Ql (Bld) 1+ [facility] CBC W/Diff, Automatedon - POLYCHROMASIA 1+ Normal [facility] Comment on above: Performed By: #### L 500.2500, L100.0100 ####[facility] [address] [place], [address] Wound Cultureon 02-09-2025 WC Normal [facility] Comment on above: Performed By: #### M 600.2000, M600.2200, M100.2000, M100.3000, M100.4001 ####[facility] [address] [place], [address] Assessment of wrist artery p atency prior to arterial punctureOrdered By: Hugo Cervantes on 02-08-2025 Arterial patency Wrist artery --pre arterial puncture Positive [facility] Basic Metabolic Profile (BMP )on 02-08-2025 BUN/CRE 19.1 RATIO Normal 10-20 [facility] Comment on above: Performed By: #### L 100.0100, L500.2500 ####[facility] [address] [place], [address] Calcium [Mass/Vol] 8.9 mg/dL Normal 7.6-11.0 [facility] Comment on above: Performed By: #### L 100.0100, L500.2500 ####[facility] [address] [place], [address] Chloride [Moles/Vol] 110 mmol/L High 98-108 [facility] Comment on above: Performed By: #### L 100.0100, L500.2500 ####[facility] [address] [place], [address] CO2 [Moles/Vol] 24.2 mmol/L Normal 21.0-32.0 [facility] Comment on above: Performed By: #### L 100.0100, L500.2500 ####[facility] [address] [place], [address] Creatinine [Mass/Vol] 1.71 mg/dL High 0.70-1.20 [facility] Comment on above: Performed By: #### L 100.0100, L500.2500 ####[facility] [address] [place], [address] ECRCL 48.63 ml/min Low 50-250 [facility] Comment on above: Performed By: #### L 100.0100, L500.2500 ####[facility] [address] [place], [address] GAP 9 Normal 5-15 [facility] Comment on above: Performed By: #### L 100.0100, L500.2500 ####[facility] [address] [place], [address] GFR/1.73 sq M.predicted among non-blacks MDRD (S/P/Bld) [Vol rate/Area] 41 mL/min/{1.73_m2} Low >60 [facility] Comment on above: Result Comment: mL/m in/1.73m2 CKD-EPI Creatinine Equation (2020) Performed By: #### L 100.0100, L500.2500 ####[facility] [address] [place], [address] Glucose [Mass/Vol] 156 mg/dL High 70-99 [facility] Comment on above: Performed By: #### L 100.0100, L500.2500 ####[facility] [address] [place], [address] Potassium [Moles/Vol] 3.8 mmol/L Normal 3.3-5.1 [facility] Comment on above: Performed By: #### L 100.0100, L500.2500 ####[facility] [address] [place], [address] Sodium [Moles/Vol] 143 mmol/L Normal 133-145 [facility] Comment on above: Performed By: #### L 100.0100, L500.2500 ####[facility] [address] [place], [address] Urea nitrogen [Mass/Vol] 33 mg/dL High 4-19 [facility] Comment on above: Performed By: #### L 100.0100, L500.2500 ####[facility] [address] [place], [address] Bedside Glucoseon 02-08-2025 FINGERSTICK GLU 135 mg/dL High 74-106 [facility] Comment on above: Result Comment: JAZ GEMENT OF PATIENT CARE PER NURSING PROTOCOL Performed By: #### L 501.080 ####[facility] [address] [place], [address] FINGERSTICK GLU 141 mg/dL High 74-106 [facility] Comment on above: Result Comment: JAZ GEMENT OF PATIENT CARE PER NURSING PROTOCOL Performed By: #### L 501.080 ####[facility] [address] [place], [address] FINGERSTICK GLU 145 mg/dL High 74-106 [facility] Comment on above: Result Comment: JAZ GEMENT OF PATIENT CARE PER NURSING PROTOCOL Performed By: #### L 501.080 ####[facility] [address] [place], [address] [facility] EUGENIO TEST Positive Normal [facility] Comment on above: Performed By: #### L 9000.0800 ####[facility] [address] [place], [address] Base excess Calc (Bld) [Moles/Vol] 5 mmol/L High -2 to +2 [facility] Comment on above: Performed By: #### L 9000.0800 ####[facility] [address] [place], [address] Blood Gas Type ART Normal [facility] Comment on above: Performed By: #### L 9000.0800 ####[facility] [address] [place], [address] CO2 [Moles/Vol] 30 mmol/L Normal [facility] Comment on above: Performed By: #### L 9000.0800 ####[facility] [address] [place], [address] FI02 2.0 Normal [facility] Comment on above: Performed By: #### L 0.0800 ####[facility] [address] [place], [address] HCO3 (Bld) [Moles/Vol] 28.8 mmol/L High 22-26 [facility] Comment on above: Performed By: #### L 8999.0800 ####[facility] [address] [place], [address] Mode Not entered Normal [facility] Comment on above: Performed By: #### L 0.0800 ####[facility] [address] [place], [address] O2 Delivery Dev Cannula Normal [facility] Comment on above: Performed By: #### L 8999.0800 ####[facility] [address] [place], [address] pCO2 42.1 mmHg Normal 35-45 [facility] Comment on above: Performed By: #### L 8999.0800 ####[facility] [address] [place], [address] pH (Bld) 7.44 [pH] Normal 7.35-7.45 [facility] Comment on above: Performed By: #### L 8999.0800 ####[facility] [address] [place], [address] PO2 82 mmHG Normal 75-100 [facility] Comment on above: Performed By: #### L 8999.0800 ####[facility] [address] [place], [address] SITE R Radial Normal [facility] Comment on above: Performed By: #### L 0.0800 ####[facility] [address] [place], [address] SO2 96 Normal 95-99 [facility] Comment on above: Performed By: #### L 9000.0800 ####[facility] [address] [place], [address] Blood base excess determinat ionOrdered By: Hugo Cervantes on 02-08-2025 Base excess Calc (BldV) [Moles/Vol] 5 mmol/L High -2-2 [facility] Blood bicarbonate measuremen tOrdered By: Hugo Cervantes on 02-08-2025 HCO3 (Bld) [Moles/Vol] 28.8 mmol/L High 22-26 [facility] CBC W/Diff, Automatedon 01-13 Absolute Lymph 1.25 X10 3/uL Normal 0.83-4.51 [facility] Comment on above: Performed By: #### L 100.0100, L500.2500 ####[facility] [address] [place], [address] Absolute Neut 7.9 X10 3/uL High 2.0-7.7 [facility] Comment on above: Performed By: #### L 100.0100, L500.2500 ####[facility] [address] [place], [address] Basophils/100 WBC (Bld) 0.3 % Normal 0-1 [facility] Comment on above: Performed By: #### L 100.0100, L500.2500 ####[facility] [address] [place], [address] Eosinophils/100 WBC (Bld) 4.6 % Normal 0-5 [facility] Comment on above: Performed By: #### L 100.0100, L500.2500 ####[facility] [address] [place], [address] Erythrocyte distribution width (RBC) [Ratio] 13.7 % Normal 11.6-14.6 [facility] Comment on above: Performed By: #### L 100.0100, L500.2500 ####[facility] [address] [place], [address] Hematocrit (Bld) [Volume fraction] 29.3 % Low 40-54 [facility] Comment on above: Performed By: #### L 100.0100, L500.2500 ####[facility] [address] [place], [address] Hemoglobin (Bld) [Mass/Vol] 9.6 g/dL Low 13.0-16. 5 [facility] Comment on above: Performed By: #### L 100.0100, L500.2500 ####[facility] [address] [place], [address] IG% 1.400 High 0.0-0.9 [facility] Comment on above: Result Comment: IG% - Immature Granulocytes (promyelocytes, myelocytes andmetamyelocytes) > 1% indicates that a LEFT SHIFT is Present. Performed By: #### L 100.0100, L500.2500 ####[facility] [address] [place], [address] Lymphocytes/100 WBC (Bld) 11.5 % Low 19-41 [facility] Comment on above: Performed By: #### L 100.0100, L500.2500 ####[facility] [address] [place], [address] MCH (RBC) [Entitic mass] 27.8 pg Normal 27.0-32.0 [facility] Comment on above: Performed By: #### L 100.0100, L500.2500 ####[facility] [address] [place], [address] MCHC (RBC) [Mass/Vol] 32.8 g/dL Normal 32-36 [facility] Comment on above: Performed By: #### L 100.0100, L500.2500 ####[facility] [address] [place], [address] MCV (RBC) [Entitic vol] 84.9 fL Normal 80-94 [facility] Comment on above: Performed By: #### L 100.0100, L500.2500 ####[facility] [address] [place], [address] Monocytes/100 WBC (Bld) 9.5 % Normal 0-10 [facility] Comment on above: Performed By: #### L 100.0100, L500.2500 ####[facility] [address] [place], [address] Neutrophils/100 WBC (Bld) 72.7 % High 47-70 [facility] Comment on above: Performed By: #### L 100.0100, L500.2500 ####[facility] [address] [place], [address] Nucleated RBC (Bld) [#/Vol] 0 10*3/uL Normal 0-5 [facility] Comment on above: Performed By: #### L 100.0100, L500.2500 ####[facility] [address] [place], [address] Platelet mean volume (Bld) [Entitic vol] 8.8 fL Normal 6.2-12.0 [facility] Comment on above: Performed By: #### L 100.0100, L500.2500 ####[facility] [address] [place], [address] Platelets (Bld) [#/Vol] 263 10*3/uL Normal 150-450 [facility] Comment on above: Performed By: #### L 100.0100, L500.2500 ####[facility] [address] [place], [address] RBC (Bld) [#/Vol] 3.45 10*6/uL Low 4.6-6.2 [facility] Comment on above: Performed By: #### L 100.0100, L500.2500 ####[facility] [address] [place], [address] RDW SD 42.7 fl Normal 35.1-43.9 [facility] Comment on above: Performed By: #### L 100.0100, L500.2500 ####[facility] [address] [place], [address] WBC (Bld) [#/Vol] 10.9 10*3/uL Normal 4.4-11.0 [facility] Comment on above: Performed By: #### L 100.0100, L500.2500 ####[facility] [address] [place], [address] Consultation - Infectious Dx on 02-08-2025 Consultation - Infectious Dx Normal [facility] Culture, Blood (WB)on 2024 CUB Blood cultures x2, from two different sites No growth in 5 days. Normal [facility] Comment on above: Performed By: #### L 300.4310, L500.4050, L503.6005, M200.1000, L100.0100, L300.3900 ####[facility] [address] [place], [address] Measurement, pHOrdered By: Breonna Cervantes on 02-08-2025 pH (Unsp spec) 7.44 [pH] 7.35-7.45 [facility] No Panel InformationOrdered By: Hugo Cervantes on 02-08-2025 ART [facility] R Radial [facility] Not entered [facility] Cannula [facility] Total carbon dioxide measure mentOrdered By: Hugo Cervantes on 02-08-2025 CO2 [Moles/Vol] 30 mmol/L [facility] Vancomycin, Trough Levelon 0 02-08-2025 VANCO, TROUGH 20.6 ug/mL High 5.0-15.0 [facility] Comment on above: Order Comment: Comme nts: DRAW 30 MIN PRIOR TO [id number] Result Comment: Jalen mmended goal trough ranges [...] therapy recommended for serious lifethreatening infections include:- Gvckjpeyjy-Nmuivrykkjhy-Zotnczybf (Ventilator/Healtcare Associated)-SepsisPLEASE CONTACT PHARMACY SERVICES (#8231) FOR INTERPRETATIONOF RESULTS. Performed By: #### L 501.8820 ####[facility] [address] [place], [address] Basic Metabolic Profile (BMP )on 02-07-2025 BUN/CRE 22.7 RATIO High 10-20 [facility] Comment on above: Performed By: #### L 100.0100, L500.2500 ####[facility] [address] [place], [address] Calcium [Mass/Vol] 8.7 mg/dL Normal 7.6-11.0 [facility] Comment on above: Performed By: #### L 100.0100, L500.2500 ####[facility] [address] [place], [address] Chloride [Moles/Vol] 109 mmol/L High 98-108 [facility] Comment on above: Performed By: #### L 100.0100, L500.2500 ####[facility] [address] [place], [address] CO2 [Moles/Vol] 22.6 mmol/L Normal 21.0-32.0 [facility] Comment on above: Performed By: #### L 100.0100, L500.2500 ####[facility] [address] [place], [address] Creatinine [Mass/Vol] 1.75 mg/dL High 0.70-1.20 [facility] Comment on above: Performed By: #### L 100.0100, L500.2500 ####[facility] [address] [place], [address] ECRCL 47.38 ml/min Low 50-250 [facility] Comment on above: Performed By: #### L 100.0100, L500.2500 ####[facility] [address] [place], [address] GAP 10 Normal 5-15 [facility] Comment on above: Performed By: #### L 100.0100, L500.2500 ####[facility] [address] [place], [address] GFR/1.73 sq M.predicted among non-blacks MDRD (S/P/Bld) [Vol rate/Area] 40 mL/min/{1.73_m2} Low >60 [facility] Comment on above: Result Comment: mL/m in/1.73m2 CKD-EPI Creatinine Equation (2020) Performed By: #### L 100.0100, L500.2500 ####[facility] [address] [place], [address] Glucose [Mass/Vol] 150 mg/dL High 70-99 [facility] Comment on above: Performed By: #### L 100.0100, L500.2500 ####[facility] [address] [place], [address] Potassium [Moles/Vol] 3.8 mmol/L Normal 3.3-5.1 [facility] Comment on above: Performed By: #### L 100.0100, L500.2500 ####[facility] [address] [place], [address] Sodium [Moles/Vol] 142 mmol/L Normal 133-145 [facility] Comment on above: Performed By: #### L 100.0100, L500.2500 ####[facility] [address] [place], [address] Urea nitrogen [Mass/Vol] 40 mg/dL High 4-19 [facility] Comment on above: Performed By: #### L 100.0100, L500.2500 ####[facility] [address] [place], [address] Bedside Glucoseon 02-07-2025 FINGERSTICK GLU 174 mg/dL High 74-106 [facility] Comment on above: Result Comment: JAZ GEMENT OF PATIENT CARE PER NURSING PROTOCOL Performed By: #### L 501.080 ####[facility] [address] [place], [address] FINGERSTICK GLU 143 mg/dL High 74-106 [facility] Comment on above: Result Comment: JAZ GEMENT OF PATIENT CARE PER NURSING PROTOCOL Performed By: #### L 501.080 ####[facility] [address] [place], [address] FINGERSTICK GLU 156 mg/dL High 74-106 [facility] Comment on above: Result Comment: JAZ GEMENT OF PATIENT CARE PER NURSING PROTOCOL Performed By: #### L 501.080 ####[facility] [address] [place], [address] FINGERSTICK GLU 146 mg/dL High 74-106 [facility] Comment on above: Result Comment: JAZ GEMENT OF PATIENT CARE PER NURSING PROTOCOL Performed By: #### L 501.080 ####[facility] [address] [place], [address] CBC W/Diff, Automatedon 07-2 Absolute Lymph 1.37 X10 3/uL Normal 0.83-4.51 [facility] Comment on above: Performed By: #### L 100.0100, L500.2500 ####[facility] [address] [place], [address] Absolute Neut 6.1 X10 3/uL Normal 2.0-7.7 [facility] Comment on above: Performed By: #### L 100.0100, L500.2500 ####[facility] [address] [place], [address] Basophils/100 WBC (Bld) 0.7 % Normal 0-1 [facility] Comment on above: Performed By: #### L 100.0100, L500.2500 ####[facility] [address] [place], [address] Eosinophils/100 WBC (Bld) 6.8 % High 0-5 [facility] Comment on above: Performed By: #### L 100.0100, L500.2500 ####[facility] [address] [place], [address] Erythrocyte distribution width (RBC) [Ratio] 13.6 % Normal 11.6-14.6 [facility] Comment on above: Performed By: #### L 100.0100, L500.2500 ####[facility] [address] [place], [address] Hematocrit (Bld) [Volume fraction] 29.6 % Low 40-54 [facility] Comment on above: Performed By: #### L 100.0100, L500.2500 ####[facility] [address] [place], [address] Hemoglobin (Bld) [Mass/Vol] 9.5 g/dL Low 13.0-16. 5 [facility] Comment on above: Performed By: #### L 100.0100, L500.2500 ####[facility] [address] [place], [address] IG% 1.900 High 0.0-0.9 [facility] Comment on above: Result Comment: IG% - Immature Granulocytes (promyelocytes, myelocytes andmetamyelocytes) > 1% indicates that a LEFT SHIFT is Present. Performed By: #### L 100.0100, L500.2500 ####[facility] [address] [place], [address] Lymphocytes/100 WBC (Bld) 15.0 % Low 19-41 [facility] Comment on above: Performed By: #### L 100.0100, L500.2500 ####[facility] [address] [place], [address] MCH (RBC) [Entitic mass] 27.5 pg Normal 27.0-32.0 [facility] Comment on above: Performed By: #### L 100.0100, L500.2500 ####[facility] [address] [place], [address] MCHC (RBC) [Mass/Vol] 32.1 g/dL Normal 32-36 [facility] Comment on above: Performed By: #### L 100.0100, L500.2500 ####[facility] [address] [place], [address] MCV (RBC) [Entitic vol] 85.5 fL Normal 80-94 [facility] Comment on above: Performed By: #### L 100.0100, L500.2500 ####[facility] [address] [place], [address] Monocytes/100 WBC (Bld) 9.5 % Normal 0-10 [facility] Comment on above: Performed By: #### L 100.0100, L500.2500 ####[facility] [address] [place], [address] Neutrophils/100 WBC (Bld) 66.1 % Normal 47-70 [facility] Comment on above: Performed By: #### L 100.0100, L500.2500 ####[facility] [address] [place], [address] Nucleated RBC (Bld) [#/Vol] 0 10*3/uL Normal 0-5 [facility] Comment on above: Performed By: #### L 100.0100, L500.2500 ####[facility] [address] [place], [address] Platelet mean volume (Bld) [Entitic vol] 9.0 fL Normal 6.2-12.0 [facility] Comment on above: Performed By: #### L 100.0100, L500.2500 ####[facility] [address] [place], [address] Platelets (Bld) [#/Vol] 258 10*3/uL Normal 150-450 [facility] Comment on above: Performed By: #### L 100.0100, L500.2500 ####[facility] [address] [place], [address] RBC (Bld) [#/Vol] 3.46 10*6/uL Low 4.6-6.2 [facility] Comment on above: Performed By: #### L 100.0100, L500.2500 ####[facility] [address] [place], [address] RDW SD 42.4 fl Normal 35.1-43.9 [facility] Comment on above: Performed By: #### L 100.0100, L500.2500 ####[facility] [address] [place], [address] WBC (Bld) [#/Vol] 9.2 10*3/uL Normal 4.4-11.0 [facility] Comment on above: Performed By: #### L 100.0100, L500.2500 ####[facility] [address] [place], [address] Culture, Anaerobic Any Sourc ace 02-07-2025 CUAN ONLY AEROBIC SWAB WA S SENT DRUGS WITH ANAROBES MAYBE INHIBITED. No anaerobic bacteria isolated. Normal [facility] Comment on above: Performed By: #### M 100.3000, M100.4001, L8200.1075, M1 ####[facility] [address] [place], [address] Serum or plasma vancomycin m easurement (mass/volume)Ordered By: Hugo Cervantes on 02-07-2025 Vancomycin [Mass/Vol] 17.6 ug/mL High 0.0-15.0 [facility] Vancomycin, Random Levelon 0 02-07-2025 VANCO, RANDOM 17.6 ug/mL High 0.0-15.0 [facility] Comment on above: Result Comment: VANC OMYCIN STANDARD DRUG THERAPY: CRITICAL VALUE IS > 15.0 mg/LVANCOMYCIN HIGH INTENSITY THERAPY: CRITICAL VALUE IS > 20.0 mg/LPLEASE CONTACT PHARMACY SERVICES (#1642) FOR INTERPRETATIONOF RESULTS. THIS RESULT DOES NOT REPRESENT A PEAK OR TROUGHLEVEL FOR THIS DRUG. Performed By: #### L 501.8850 ####[facility] [address] [place], [address] Wound Cultureon 02-07-2025 WC Normal [facility] Comment on above: Performed By: #### M 100.3000, M100.4001, L8200.1075, ####[facility] [address] [place], [address] Basic Metabolic Profile (BMP )on 02-06-2025 BUN/CRE 22.0 RATIO High 10-20 [facility] Comment on above: Performed By: #### L 500.2500, L100.0100 ####[facility] [address] [place], [address] Calcium [Mass/Vol] 8.8 mg/dL Normal 7.6-11.0 [facility] Comment on above: Performed By: #### L 500.2500, L100.0100 ####[facility] [address] [place], [address] Chloride [Moles/Vol] 109 mmol/L High 98-108 [facility] Comment on above: Performed By: #### L 500.2500, L100.0100 ####[facility] [address] [place], [address] CO2 [Moles/Vol] 21.2 mmol/L Normal 21.0-32.0 [facility] Comment on above: Performed By: #### L 500.2500, L100.0100 ####[facility] [address] [place], [address] Creatinine [Mass/Vol] 1.83 mg/dL High 0.70-1.20 [facility] Comment on above: Performed By: #### L 500.2500, L100.0100 ####[facility] [address] [place], [address] ECRCL 45.10 ml/min Low 50-250 [facility] Comment on above: Performed By: #### L 500.2500, L100.0100 ####[facility] [address] [place], [address] GAP 11 Normal 5-15 [facility] Comment on above: Performed By: #### L 500.2500, L100.0100 ####[facility] [address] [place], [address] GFR/1.73 sq M.predicted among non-blacks MDRD (S/P/Bld) [Vol rate/Area] 38 mL/min/{1.73_m2} Low >60 [facility] Comment on above: Result Comment: mL/m in/1.73m2 CKD-EPI Creatinine Equation (2020) Performed By: #### L 500.2500, L100.0100 ####[facility] [address] [place], [address] Glucose [Mass/Vol] 150 mg/dL High 70-99 [facility] Comment on above: Performed By: #### L 500.2500, L100.0100 ####[facility] [address] [place], [address] Potassium [Moles/Vol] 3.9 mmol/L Normal 3.3-5.1 [facility] Comment on above: Performed By: #### L 500.2500, L100.0100 ####[facility] [address] [place], [address] Sodium [Moles/Vol] 141 mmol/L Normal 133-145 [facility] Comment on above: Performed By: #### L 500.2500, L100.0100 ####[facility] [address] [place], [address] Urea nitrogen [Mass/Vol] 40 mg/dL High 4-19 [facility] Comment on above: Performed By: #### L 500.2500, L100.0100 ####[facility] [address] [place], [address] Bedside Glucoseon 02-06-2025 FINGERSTICK GLU 169 mg/dL High 74-106 [facility] Comment on above: Result Comment: JAZ GEMENT OF PATIENT CARE PER NURSING PROTOCOL Performed By: #### L 501.080 ####[facility] [address] [place], [address] FINGERSTICK GLU 140 mg/dL High 74-106 [facility] Comment on above: Result Comment: JAZ GEMENT OF PATIENT CARE PER NURSING PROTOCOL Performed By: #### L 501.080 ####[facility] [address] [place], [address] FINGERSTICK GLU 186 mg/dL High 74-106 [facility] Comment on above: Result Comment: JAZ GEMENT OF PATIENT CARE PER NURSING PROTOCOL Performed By: #### L 501.080 ####[facility] [address] [place], [address] FINGERSTICK GLU 147 mg/dL High 74-106 [facility] Comment on above: Result Comment: JAZ GEMENT OF PATIENT CARE PER NURSING PROTOCOL Performed By: #### L 501.080 ####[facility] [address] [place], [address] CBC W/Diff, Automatedon 01-13 Absolute Lymph 1.00 X10 3/uL Normal 0.83-4.51 [facility] Comment on above: Performed By: #### L 500.2500, L100.0100 ####[facility] [address] [place], [address] Absolute Neut 7.3 X10 3/uL Normal 2.0-7.7 [facility] Comment on above: Performed By: #### L 500.2500, L100.0100 ####[facility] [address] [place], [address] Basophils/100 WBC (Bld) 0.4 % Normal 0-1 [facility] Comment on above: Performed By: #### L 500.2500, L100.0100 ####[facility] [address] [place], [address] Eosinophils/100 WBC (Bld) 5.9 % High 0-5 [facility] Comment on above: Performed By: #### L 500.2500, L100.0100 ####[facility] [address] [place], [address] Erythrocyte distribution width (RBC) [Ratio] 13.6 % Normal 11.6-14.6 [facility] Comment on above: Performed By: #### L 500.2500, L100.0100 ####[facility] [address] [place], [address] Hematocrit (Bld) [Volume fraction] 30.5 % Low 40-54 [facility] Comment on above: Performed By: #### L 500.2500, L100.0100 ####[facility] [address] [place], [address] Hemoglobin (Bld) [Mass/Vol] 9.9 g/dL Low 13.0-16. 5 [facility] Comment on above: Performed By: #### L 500.2500, L100.0100 ####[facility] [address] [place], [address] IG% 0.800 Normal 0.0-0.9 [facility] Comment on above: Result Comment: IG% - Immature Granulocytes (promyelocytes, myelocytes andmetamyelocytes) > 1% indicates that a LEFT SHIFT is Present. Performed By: #### L 500.2500, L100.0100 ####[facility] [address] [place], [address] Lymphocytes/100 WBC (Bld) 10.1 % Low 19-41 [facility] Comment on above: Performed By: #### L 500.2500, L100.0100 ####[facility] [address] [place], [address] MCH (RBC) [Entitic mass] 27.9 pg Normal 27.0-32.0 [facility] Comment on above: Performed By: #### L 500.2500, L100.0100 ####[facility] [address] [place], [address] MCHC (RBC) [Mass/Vol] 32.5 g/dL Normal 32-36 [facility] Comment on above: Performed By: #### L 500.2500, L100.0100 ####[facility] [address] [place], [address] MCV (RBC) [Entitic vol] 85.9 fL Normal 80-94 [facility] Comment on above: Performed By: #### L 500.2500, L100.0100 ####[facility] [address] [place], [address] Monocytes/100 WBC (Bld) 8.6 % Normal 0-10 [facility] Comment on above: Performed By: #### L 500.2500, L100.0100 ####[facility] [address] [place], [address] Neutrophils/100 WBC (Bld) 74.2 % High 47-70 [facility] Comment on above: Performed By: #### L 500.2500, L100.0100 ####[facility] [address] [place], [address] Nucleated RBC (Bld) [#/Vol] 0 10*3/uL Normal 0-5 [facility] Comment on above: Performed By: #### L 500.2500, L100.0100 ####[facility] [address] [place], [address] Platelet mean volume (Bld) [Entitic vol] 9.2 fL Normal 6.2-12.0 [facility] Comment on above: Performed By: #### L 500.2500, L100.0100 ####[facility] [address] [place], [address] Platelets (Bld) [#/Vol] 262 10*3/uL Normal 150-450 [facility] Comment on above: Performed By: #### L 500.2500, L100.0100 ####[facility] [address] [place], [address] RBC (Bld) [#/Vol] 3.55 10*6/uL Low 4.6-6.2 [facility] Comment on above: Performed By: #### L 500.2500, L100.0100 ####[facility] [address] [place], [address] RDW SD 42.9 fl Normal 35.1-43.9 [facility] Comment on above: Performed By: #### L 500.2500, L100.0100 ####[facility] [address] [place], [address] WBC (Bld) [#/Vol] 9.9 10*3/uL Normal 4.4-11.0 [facility] Comment on above: Performed By: #### L 500.2500, L100.0100 ####[facility] [address] [place], [address] Gram Stainon 02-06-2025 GS UNK UNK Bone 5th left Metatarsal toe Gram Stain No organisms seen 2+ White Blood Cells Normal [facility] Comment on above: Performed By: #### M 600.2000, M600.2200, M100.2000, M100.3000, M100.4001 ####[facility] [address] [place], [address] GS UNK UNK Clearance Fragment left 5th metatarsal toe Gram Stain No organisms seen Normal [facility] Comment on above: Performed By: #### M 600.2000, M600.2200, M100.2000, M100.3000, M100.4001 ####[facility] [address] [place], [address] Vancomycin, Random Levelon 0 02-06-2025 VANCO, RANDOM 21.4 ug/mL High 0.0-15.0 [facility] Comment on above: Result Comment: VANC OMYCIN STANDARD DRUG THERAPY: CRITICAL VALUE IS > 15.0 mg/LVANCOMYCIN HIGH INTENSITY THERAPY: CRITICAL VALUE IS > 20.0 mg/LPLEASE CONTACT PHARMACY SERVICES (#7922) FOR INTERPRETATIONOF RESULTS. THIS RESULT DOES NOT REPRESENT A PEAK OR TROUGHLEVEL FOR THIS DRUG. Performed By: #### L 501.8898 ####[facility] [address] [place], [place], [address] Vancomycin, Trough Levelon 0 02-06-2025 VANCO, TROUGH 25.9 ug/mL High 5.0-15.0 [facility] Comment on above: Order Comment: Comme nts: Trough to be drawn 30 mins prior to scheduled [id number] Result Comment: Jalen mmended goal trough ranges [...] therapy recommended for serious lifethreatening infections include:- Cempejtqwk-Ntitstukejcy-Jnetemzng (Ventilator/Healtcare Associated)-SepsisPLEASE CONTACT PHARMACY SERVICES (#6415) FOR INTERPRETATIONOF RESULTS. Performed By: #### L 501.8820 ####[facility] [address] [place], [place], [address] Wound Cultureon 02-06-2025 WC UNK UNK Clearance Fragment left 5th metatarsal toe No growth aerobically. Normal [facility] Comment on above: Performed By: #### M 600.2000, M600.2200, M100.2000, M100.3000, M100.4001 ####[facility] [address] [place], [address] Acid fast bacillus (AFB) cul tureOrdered By: Kee Mejia on 02-05-2025 Mycobacterium sp identified Org specific cx Nom (Unsp spec) [facility] Mycobacterium sp identified Org specific cx Nom (Unsp spec) [facility] Anaerobic cultureOrdered By: Kee Mejia on 02-05-2025 Bacteria identified Anaer cx Nom (Unsp spec) No anaerobic bacteria isolated. [facility] Bacteria identified Anaer cx Nom (Unsp spec) No growth in 5 days. [facility] Basic Metabolic Profile (BMP )on 02-05-2025 BUN/CRE 22.6 RATIO High 10-20 [facility] Comment on above: Performed By: #### L 100.0100, L500.2500 ####[facility] [address] [place], [address] Calcium [Mass/Vol] 8.8 mg/dL Normal 7.6-11.0 [facility] Comment on above: Performed By: #### L 100.0100, L500.2500 ####[facility] [address] [place], [address] Chloride [Moles/Vol] 110 mmol/L High 98-108 [facility] Comment on above: Performed By: #### L 100.0100, L500.2500 ####[facility] [address] [place], [address] CO2 [Moles/Vol] 20.0 mmol/L Low 21.0-32.0 [facility] Comment on above: Performed By: #### L 100.0100, L500.2500 ####[facility] [address] [place], [address] Creatinine [Mass/Vol] 1.81 mg/dL High 0.70-1.20 [facility] Comment on above: Performed By: #### L 100.0100, L500.2500 ####[facility] [address] [place], [address] ECRCL 45.33 ml/min Low 50-250 [facility] Comment on above: Performed By: #### L 100.0100, L500.2500 ####[facility] [address] [place], [address] GAP 12 Normal 5-15 [facility] Comment on above: Performed By: #### L 100.0100, L500.2500 ####[facility] [address] [place], [address] GFR/1.73 sq M.predicted among non-blacks MDRD (S/P/Bld) [Vol rate/Area] 38 mL/min/{1.73_m2} Low >60 [facility] Comment on above: Result Comment: mL/m in/1.73m2 CKD-EPI Creatinine Equation (2020) Performed By: #### L 100.0100, L500.2500 ####[facility] [address] [place], [address] Glucose [Mass/Vol] 166 mg/dL High 70-99 [facility] Comment on above: Performed By: #### L 100.0100, L500.2500 ####[facility] [address] [place], [address] Potassium [Moles/Vol] 3.8 mmol/L Normal 3.3-5.1 [facility] Comment on above: Performed By: #### L 100.0100, L500.2500 ####[facility] [address] [place], [address] Sodium [Moles/Vol] 141 mmol/L Normal 133-145 [facility] Comment on above: Performed By: #### L 100.0100, L500.2500 ####[facility] [address] [place], [address] Urea nitrogen [Mass/Vol] 41 mg/dL High 4-19 [facility] Comment on above: Performed By: #### L 100.0100, L500.2500 ####[facility] [address] [place], [address] Bedside Glucoseon 02-05-2025 FINGERSTICK GLU 168 mg/dL High 74-106 [facility] Comment on above: Result Comment: JAZ GEMENT OF PATIENT CARE PER NURSING PROTOCOL Performed By: #### L 501.080 ####[facility] [address] [place], [address] FINGERSTICK GLU 152 mg/dL High 74-106 [facility] Comment on above: Result Comment: JAZ GEMENT OF PATIENT CARE PER NURSING PROTOCOL Performed By: #### L 501.080 ####[facility] [address] [place], [address] FINGERSTICK GLU 153 mg/dL High 74-106 [facility] Comment on above: Result Comment: JAZ GEMENT OF PATIENT CARE PER NURSING PROTOCOL Performed By: #### L 501.080 ####[facility] [address] [place], [address] FINGERSTICK GLU 159 mg/dL High 74-106 [facility] Comment on above: Result Comment: JAZ GEMENT OF PATIENT CARE PER NURSING PROTOCOL Performed By: #### L 501.080 ####[facility] [address] [place], [address] FINGERSTICK GLU 167 mg/dL High 74-106 [facility] Comment on above: Result Comment: JAZ GEMENT OF PATIENT CARE PER NURSING PROTOCOL Performed By: #### L 501.080 ####[facility] [address] [place], [address] CBC W/Diff, Automatedon 07-2 5-2024 Absolute Lymph 1.00 X10 3/uL Normal 0.83-4.51 [facility] Comment on above: Performed By: #### L 100.0100, L500.2500 ####[facility] [address] [place], [address] Absolute Neut 8.2 X10 3/uL High 2.0-7.7 [facility] Comment on above: Performed By: #### L 100.0100, L500.2500 ####[facility] [address] [place], [address] Basophils/100 WBC (Bld) 0.2 % Normal 0-1 [facility] Comment on above: Performed By: #### L 100.0100, L500.2500 ####[facility] [address] [place], [address] Eosinophils/100 WBC (Bld) 5.2 % High 0-5 [facility] Comment on above: Performed By: #### L 100.0100, L500.2500 ####[facility] [address] [place], [address] Erythrocyte distribution width (RBC) [Ratio] 13.7 % Normal 11.6-14.6 [facility] Comment on above: Performed By: #### L 100.0100, L500.2500 ####[facility] [address] [place], [address] Hematocrit (Bld) [Volume fraction] 30.2 % Low 40-54 [facility] Comment on above: Performed By: #### L 100.0100, L500.2500 ####[facility] [address] [place], [address] Hemoglobin (Bld) [Mass/Vol] 9.7 g/dL Low 13.0-16. 5 [facility] Comment on above: Performed By: #### L 100.0100, L500.2500 ####[facility] [address] [place], [address] IG% 0.800 Normal 0.0-0.9 [facility] Comment on above: Result Comment: IG% - Immature Granulocytes (promyelocytes, myelocytes andmetamyelocytes) > 1% indicates that a LEFT SHIFT is Present. Performed By: #### L 100.0100, L500.2500 ####[facility] [address] [place], [address] Lymphocytes/100 WBC (Bld) 9.4 % Low 19-41 [facility] Comment on above: Performed By: #### L 100.0100, L500.2500 ####[facility] [address] [place], [address] MCH (RBC) [Entitic mass] 27.6 pg Normal 27.0-32.0 [facility] Comment on above: Performed By: #### L 100.0100, L500.2500 ####[facility] [address] [place], [address] MCHC (RBC) [Mass/Vol] 32.1 g/dL Normal 32-36 [facility] Comment on above: Performed By: #### L 100.0100, L500.2500 ####[facility] [address] [place], [address] MCV (RBC) [Entitic vol] 85.8 fL Normal 80-94 [facility] Comment on above: Performed By: #### L 100.0100, L500.2500 ####[facility] [address] [place], [address] Monocytes/100 WBC (Bld) 8.0 % Normal 0-10 [facility] Comment on above: Performed By: #### L 100.0100, L500.2500 ####[facility] [address] [place], [address] Neutrophils/100 WBC (Bld) 76.4 % High 47-70 [facility] Comment on above: Performed By: #### L 100.0100, L500.2500 ####[facility] [address] [place], [address] Nucleated RBC (Bld) [#/Vol] 0 10*3/uL Normal 0-5 [facility] Comment on above: Performed By: #### L 100.0100, L500.2500 ####[facility] [address] [place], [address] Platelet mean volume (Bld) [Entitic vol] 9.2 fL Normal 6.2-12.0 [facility] Comment on above: Performed By: #### L 100.0100, L500.2500 ####[facility] [address] [place], [address] Platelets (Bld) [#/Vol] 232 10*3/uL Normal 150-450 [facility] Comment on above: Performed By: #### L 100.0100, L500.2500 ####[facility] [address] [place], [address] RBC (Bld) [#/Vol] 3.52 10*6/uL Low 4.6-6.2 [facility] Comment on above: Performed By: #### L 100.0100, L500.2500 ####[facility] [address] [place], [address] RDW SD 43.1 fl Normal 35.1-43.9 [facility] Comment on above: Performed By: #### L 100.0100, L500.2500 ####[facility] [address] [place], [address] WBC (Bld) [#/Vol] 10.7 10*3/uL Normal 4.4-11.0 [facility] Comment on above: Performed By: #### L 100.0100, L500.2500 ####[facility] [address] [place], [address] Decalcification bone/plaqueo n 02-05-2025 Decalcification bone/plaque Normal [facility] Comment on above: Performed By: #### P DEC ####[facility] [address] [place], [address] Foot min 3 Viewson 5 Foot min 3 Views Normal [facility] Fungus cultureOrdered By: Eddie Mejia on 02-05-2025 Fungus identified Cx Nom (Unsp spec) [facility] Fungus stainOrdered By: Akshat Mejia on 02-05-2025 Fungus identified Fungus stain Nom (Unsp spec) [facility] Gram stainOrdered By: Yeni Mejia on 02-05-2025 Microscopic observation Gram stain Nom (Unsp spec) [facility] M8200.1000on 02-05-2025 M8200.1000 Normal Reference Range = Negative MRSA DNA Nose Ql ANGELY+probe GeneXpert Instrument, PCR method MRSA PCR MRSA NEGATIVE Normal [facility] Comment on above: Performed By: #### M 8200.1000 ####[facility] [address] [place], [address] MR/POSTOP.ANEon 02-05-2025 MR/POSTOP.ANE Normal [facility] Magnetic resonance imaging r eportOrdered By: Jay Barrow on 02-05-2025 Study report [facility] Nasal methicillin resistant Staphylococcus aureus (MRSA) DNA detection by PCROrdered By: Karen Aly on 02-05-2025 MRSA DNA ANGELY+probe Ql (Nose) [facility] Operative Reporton Operative Report Normal [facility] Routine wound cultureOrdered By: Kee Mejia on 02-05-2025 Microbial culture, routine Meth. resista nt Staph. aureus Abnormal [facility] Basic Metabolic Profile (BMP )on 02-04-2025 BUN/CRE 17.8 RATIO Normal 10-20 [facility] Comment on above: Performed By: #### L 100.0100, L500.2500 ####[facility] [address] [place], [address] Calcium [Mass/Vol] 8.3 mg/dL Normal 7.6-11.0 [facility] Comment on above: Performed By: #### L 100.0100, L500.2500 ####[facility] [address] [place], [address] Chloride [Moles/Vol] 110 mmol/L High 98-108 [facility] Comment on above: Performed By: #### L 100.0100, L500.2500 ####[facility] [address] [place], [address] CO2 [Moles/Vol] 23.0 mmol/L Normal 21.0-32.0 [facility] Comment on above: Performed By: #### L 100.0100, L500.2500 ####[facility] [address] [place], [address] Creatinine [Mass/Vol] 1.49 mg/dL High 0.70-1.20 [facility] Comment on above: Performed By: #### L 100.0100, L500.2500 ####[facility] [address] [place], [address] ECRCL 55.04 ml/min Normal 50-250 [facility] Comment on above: Performed By: #### L 100.0100, L500.2500 ####[facility] [address] [place], [address] GAP 9 Normal 5-15 [facility] Comment on above: Performed By: #### L 100.0100, L500.2500 ####[facility] [address] [place], [address] GFR/1.73 sq M.predicted among non-blacks MDRD (S/P/Bld) [Vol rate/Area] 48 mL/min/{1.73_m2} Low >60 [facility] Comment on above: Result Comment: mL/m in/1.73m2 CKD-EPI Creatinine Equation (2020) Performed By: #### L 100.0100, L500.2500 ####[facility] [address] [place], [address] Glucose [Mass/Vol] 170 mg/dL High 70-99 [facility] Comment on above: Performed By: #### L 100.0100, L500.2500 ####[facility] [address] [place], [address] Potassium [Moles/Vol] 3.9 mmol/L Normal 3.3-5.1 [facility] Comment on above: Performed By: #### L 100.0100, L500.2500 ####[facility] [address] [place], [address] Sodium [Moles/Vol] 142 mmol/L Normal 133-145 [facility] Comment on above: Performed By: #### L 100.0100, L500.2500 ####[facility] [address] [place], [address] Urea nitrogen [Mass/Vol] 27 mg/dL High 4-19 [facility] Comment on above: Performed By: #### L 100.0100, L500.2500 ####[facility] [address] [place], [address] Bedside Glucoseon 02-04-2025 FINGERSTICK GLU 176 mg/dL High 74-106 [facility] Comment on above: Result Comment: JAZ GEMENT OF PATIENT CARE PER NURSING PROTOCOL Performed By: #### L 501.080 ####[facility] [address] [place], [address] FINGERSTICK GLU 143 mg/dL High 74-106 [facility] Comment on above: Result Comment: JAZ GEMENT OF PATIENT CARE PER NURSING PROTOCOL Performed By: #### L 501.080 ####[facility] [address] [place], [address] FINGERSTICK GLU 171 mg/dL High 74-106 [facility] Comment on above: Result Comment: JAZ GEMENT OF PATIENT CARE PER NURSING PROTOCOL Performed By: #### L 501.080 ####[facility] [address] [place], [address] FINGERSTICK GLU 169 mg/dL High 74-106 [facility] Comment on above: Result Comment: JAZ GEMENT OF PATIENT CARE PER NURSING PROTOCOL Performed By: #### L 501.080 ####[facility] [address] [place], [address] CBC W/Diff, Automatedon 07-2 -2024 Absolute Lymph 0.61 X10 3/uL Low 0.83-4.51 [facility] Comment on above: Performed By: #### L 100.0100, L500.2500 ####[facility] [address] [place], [address] Absolute Neut 9.2 X10 3/uL High 2.0-7.7 [facility] Comment on above: Performed By: #### L 100.0100, L500.2500 ####[facility] [address] [place], [address] Basophils/100 WBC (Bld) 0.3 % Normal 0-1 [facility] Comment on above: Performed By: #### L 100.0100, L500.2500 ####[facility] [address] [place], [address] Eosinophils/100 WBC (Bld) 4.1 % Normal 0-5 [facility] Comment on above: Performed By: #### L 100.0100, L500.2500 ####[facility] [address] [place], [address] Erythrocyte distribution width (RBC) [Ratio] 13.7 % Normal 11.6-14.6 [facility] Comment on above: Performed By: #### L 100.0100, L500.2500 ####[facility] [address] [place], [address] Hematocrit (Bld) [Volume fraction] 31.0 % Low 40-54 [facility] Comment on above: Performed By: #### L 100.0100, L500.2500 ####[facility] [address] [place], [address] Hemoglobin (Bld) [Mass/Vol] 10.1 g/dL Low 13.0-16. 5 [facility] Comment on above: Performed By: #### L 100.0100, L500.2500 ####[facility] [address] [place], [address] IG% 0.900 Normal 0.0-0.9 [facility] Comment on above: Result Comment: IG% - Immature Granulocytes (promyelocytes, myelocytes andmetamyelocytes) > 1% indicates that a LEFT SHIFT is Present. Performed By: #### L 100.0100, L500.2500 ####[facility] [address] [place], [address] Lymphocytes/100 WBC (Bld) 5.3 % Low 19-41 [facility] Comment on above: Performed By: #### L 100.0100, L500.2500 ####[facility] [address] [place], [address] MCH (RBC) [Entitic mass] 27.8 pg Normal 27.0-32.0 [facility] Comment on above: Performed By: #### L 100.0100, L500.2500 ####[facility] [address] [place], [address] MCHC (RBC) [Mass/Vol] 32.6 g/dL Normal 32-36 [facility] Comment on above: Performed By: #### L 100.0100, L500.2500 ####[facility] [address] [place], [address] MCV (RBC) [Entitic vol] 85.4 fL Normal 80-94 [facility] Comment on above: Performed By: #### L 100.0100, L500.2500 ####[facility] [address] [place], [address] Monocytes/100 WBC (Bld) 9.4 % Normal 0-10 [facility] Comment on above: Performed By: #### L 100.0100, L500.2500 ####[facility] [address] [place], [address] Neutrophils/100 WBC (Bld) 80.0 % High 47-70 [facility] Comment on above: Performed By: #### L 100.0100, L500.2500 ####[facility] [address] [place], [address] Nucleated RBC (Bld) [#/Vol] 0 10*3/uL Normal 0-5 [facility] Comment on above: Performed By: #### L 100.0100, L500.2500 ####[facility] [address] [place], [address] Platelet mean volume (Bld) [Entitic vol] 9.3 fL Normal 6.2-12.0 [facility] Comment on above: Performed By: #### L 100.0100, L500.2500 ####[facility] [address] [place], [address] Platelets (Bld) [#/Vol] 193 10*3/uL Normal 150-450 [facility] Comment on above: Performed By: #### L 100.0100, L500.2500 ####[facility] [address] [place], [address] RBC (Bld) [#/Vol] 3.63 10*6/uL Low 4.6-6.2 [facility] Comment on above: Performed By: #### L 100.0100, L500.2500 ####[facility] [address] [place], [address] RDW SD 43.2 fl Normal 35.1-43.9 [facility] Comment on above: Performed By: #### L 100.0100, L500.2500 ####[facility] [address] [place], [address] WBC (Bld) [#/Vol] 11.4 10*3/uL High 4.4-11.0 [facility] Comment on above: Performed By: #### L 100.0100, L500.2500 ####[facility] [address] [place], [address] Consultation - Surgicalon Consultation - Surgical Normal [facility] Gram Stainon 02-04-2025 GS ONLY AEROBIC SWAB WA S SENT DRUGS WITH ANAROBES MAYBE INHIBITED. Gram Stain 4+ Gram positive cocci Rare Epithelial cells 4+ Gram positive rods Normal [facility] Comment on above: Performed By: #### M 100.3000, M100.4001, L8200.1075, ####[facility] [address] [place], [address] Lower Ext/No Jt/w/oon 2024 Lower Ext/No Jt/w/o Normal [facility] MRSA Wound DNA by PCRon 01-13 MRSA DNA ASSAY Positive Abnormal Negative [facility] Comment on above: Order Comment: Wound left foot Result Comment: RESU LTS CALLED TO [facility] 02/04/25213 Edwar Mcdowell Mitchell.REPORT READ BACK BY SAME. AMENDED REPORT 02/04/25213 MRSA RESULT previously reported as: POSITIVE H Performed By: #### M 100.3000, M100.4001, L8200.1075, ####[facility] [address] [place], [address] Urine Cultureon 02-04-2025 URC Culture exhibits no growth. Normal [facility] Comment on above: Performed By: #### L 400.0001, M100.2200 ####[facility] [address] [place], [address] Vancomycin, Random Levelon 0 - VANCO, RANDOM 17.8 ug/mL High 0.0-15.0 [facility] Comment on above: Result Comment: VANC OMYCIN STANDARD DRUG THERAPY: CRITICAL VALUE IS > 15.0 mg/LVANCOMYCIN HIGH INTENSITY THERAPY: CRITICAL VALUE IS > 20.0 mg/LPLEASE CONTACT PHARMACY SERVICES (#5058) FOR INTERPRETATIONOF RESULTS. THIS RESULT DOES NOT REPRESENT A PEAK OR TROUGHLEVEL FOR THIS DRUG. Performed By: #### L 501.8850 ####[facility] [address] [place], [place], [address] Vancomycin, Trough Levelon 0 02-04-2025 VANCO, TROUGH 21.4 ug/mL High 5.0-15.0 [facility] Comment on above: Order Comment: Comme nts: Trough to be drawn 30 mins prior to scheduled [id number] Result Comment: Jalen mmended goal trough ranges [...] therapy recommended for serious lifethreatening infections include:- Rjvvgwqhbt-Fpldazlgrkyn-Wbonathxq (Ventilator/Healtcare Associated)-SepsisPLEASE CONTACT PHARMACY SERVICES (#4685) FOR INTERPRETATIONOF RESULTS. Performed By: #### L 501.8820 ####[facility] [address] [place], [place], [address] Anaerobic cultureOrdered By: Kee Mejia on 02-03-2025 Bacteria identified Anaer cx Nom (Unsp spec) No anaerobic bacteria isolated. [facility] Arterial study reportOrdered By: Aneesh Ac on 02-03-2025 Noninvasive arteriosclerosis study report [facility] Work Phone: Bedside Glucoseon 02-03-2025 FINGERSTICK GLU 170 mg/dL High 74-106 [facility] Comment on above: Result Comment: JAZ BRANDON OF PATIENT CARE PER NURSING PROTOCOL Performed By: #### L 501.080 ####[facility] [address] [place], [address] FINGERSTICK GLU 154 mg/dL High [facility]106 [facility] Comment on above: Result Comment: JAZ GEMENT OF PATIENT CARE PER NURSING PROTOCOL Performed By: #### L 501.080 ####[facility] [address] [place], [address] FINGERSTICK GLU 140 mg/dL High [facility] Comment on above: Result Comment: JAZ GEMENT OF PATIENT CARE PER NURSING PROTOCOL Performed By: #### L 501.080 ####[facility] [address] [place], [address] FINGERSTICK GLU 148 mg/dL High [address] [place] [address] Comment on above: Result Comment: JAZ GEMENT OF PATIENT CARE PER NURSING PROTOCOL Performed By: #### L 501.080 ####[facility] [address] [place], [address] FINGERSTICK GLU 140 mg/dL High [address] [place] [address] Comment on above: Result Comment: JAZ GEMENT OF PATIENT CARE PER NURSING PROTOCOL Performed By: #### L 501.080 ####[facility] [address] [place], [address] Bilirubin, totalOrdered By: Karen Aly on 02-03-2025 Bilirubin [Mass/Vol] 0.61 mg/dL 0.00-1.30 [facility] CBC W/Diff, Automatedon 01-13 PLT EST ADEQUATE Normal ADEQ [facility] Comment on above: Performed By: #### L 100.0100, L500.4050, L501.5200, L501.6710, L501.9985, L101.9900 ####[facility] [address] [place], [address] CRPon 02-03-2025 C-REACTIVE PROT 138.00 mg/L High 0.0-3.0 [facility] Comment on above: Performed By: #### L 100.0100, L500.4050, L501.5200, L501.6710, L501.9985, L101.9900 ####[facility] [address] [place], [address] Comprehensive Metabolic Prof ilon 02-03-2025 Albumin [Mass/Vol] 2.9 g/dL Low 3.4-4.8 [facility] Comment on above: Performed By: #### L 100.0100, L500.4050, L501.5200, L501.6710, L501.9985, L101.9900 ####[facility] [address] [place], [address] ALK PHOS 106 U/L Normal 40-129 [facility] Comment on above: Performed By: #### L 100.0100, L500.4050, L501.5200, L501.6710, L501.9985, L101.9900 ####[facility] [address] [place], [address] ALT [Catalytic activity/Vol] 9 U/L Normal <=46 [facility] Comment on above: Performed By: #### L 100.0100, L500.4050, L501.5200, L501.6710, L501.9985, L101.9900 ####[facility] [address] [place], [address] AST [Catalytic activity/Vol] 15 U/L Normal <=37 [facility] Comment on above: Result Comment: Hemo lysis present, Results??could be affected.?? Performed By: #### L 100.0100, L500.4050, L501.5200, L501.6710, L501.9985, L101.9900 ####[facility] [address] [place], [address] Bilirubin [Mass/Vol] 0.61 mg/dL Normal 0.00-1.30 [facility] Comment on above: Performed By: #### L 100.0100, L500.4050, L501.5200, L501.6710, L501.9985, L101.9900 ####[facility] [address] [place], [address] BUN/CRE 16.9 RATIO Normal 10-20 [facility] Comment on above: Performed By: #### L 100.0100, L500.4050, L501.5200, L501.6710, L501.9985, L101.9900 ####[facility] [address] [place], [address] Calcium [Mass/Vol] 8.3 mg/dL Normal 7.6-11.0 [facility] Comment on above: Performed By: #### L 100.0100, L500.4050, L501.5200, L501.6710, L501.9985, L101.9900 ####[facility] [address] [place], [address] Chloride [Moles/Vol] 107 mmol/L Normal 98-108 [facility] Comment on above: Performed By: #### L 100.0100, L500.4050, L501.5200, L501.6710, L501.9985, L101.9900 ####[facility] [address] [place], [address] CO2 [Moles/Vol] 18.1 mmol/L Low 21.0-32.0 [facility] Comment on above: Performed By: #### L 100.0100, L500.4050, L501.5200, L501.6710, L501.9985, L101.9900 ####[facility] [address] [place], [address] Creatinine [Mass/Vol] 1.10 mg/dL Normal 0.70-1.20 [facility] Comment on above: Performed By: #### L 100.0100, L500.4050, L501.5200, L501.6710, L501.9985, L101.9900 ####[facility] [address] [place], [address] GAP 14 Normal 5-15 [facility] Comment on above: Performed By: #### L 100.0100, L500.4050, L501.5200, L501.6710, L501.9985, L101.9900 ####[facility] [address] [place], [address] GFR/1.73 sq M.predicted among non-blacks MDRD (S/P/Bld) [Vol rate/Area] 69 mL/min/{1.73_m2} Normal >60 [facility] Comment on above: Result Comment: mL/m in/1.73m2 CKD-EPI Creatinine Equation (2020) Performed By: #### L 100.0100, L500.4050, L501.5200, L501.6710, L501.9985, L101.9900 ####[facility] [address] [place], [address] Glucose [Mass/Vol] 154 mg/dL High 70-99 [facility] Comment on above: Performed By: #### L 100.0100, L500.4050, L501.5200, L501.6710, L501.9985, L101.9900 ####[facility] [address] [place], [address] Potassium [Moles/Vol] 4.2 mmol/L Normal 3.3-5.1 [facility] Comment on above: Result Comment: Hemo lysis present, Results??could be affected.?? Performed By: #### L 100.0100, L500.4050, L501.5200, L501.6710, L501.9985, L101.9900 ####[facility] [address] [place], [address] Sodium [Moles/Vol] 139 mmol/L Normal 133-145 [facility] Comment on above: Performed By: #### L 100.0100, L500.4050, L501.5200, L501.6710, L501.9985, L101.9900 ####[facility] [address] [place], [address] T PROT 5.6 g/dL Low 5.9-8.4 [facility] Comment on above: Performed By: #### L 100.0100, L500.4050, L501.5200, L501.6710, L501.9985, L101.9900 ####[facility] [address] [place], [place], [id number] Urea nitrogen [Mass/Vol] 19 mg/dL Normal 4-19 [facility] Comment on above: Performed By: #### L 100.0100, L500.4050, L501.5200, L501.6710, L501.9985, L101.9900 ####[facility] [address] [place], [place], [address] Electrocardiogram reportOrde red By: Tuan Thakkar on 02-03-2025 EKG study [facility] Other Phone: Erythrocyte Sed Rateon 02-03 SED RATE 14 mm/hr Normal 0-20 [facility] Comment on above: Performed By: #### L 100.0100, L500.4050, L501.5200, L501.6710, L501.9985, L101.9900 ####[facility] [address] [place], [address] Erythrocyte sedimentation ra teOrdered By: Karen White on 02-03-2025 ESR (Bld) [Velocity] 14 mm/h 0-20 [facility] Gram stainOrdered By: Yeni Mejia on 02-03-2025 Microscopic observation Gram stain Nom (Unsp spec) [facility] Hemoglobin A1con 02-03-2025 HbA1c (Bld) [Mass fraction] 6.7 % High <=5.6 [facility] Comment on above: Result Comment: Norm al < 5.7 % Prediabetic 5.7 - 6.4 % Diabetic >or= 6.5 % Please note range changes. Performed By: #### L 100.0100, L500.4050, L501.5200, L501.6710, L501.9985, L101.9900 ####[facility] [address] [place], [place], [address] Hemoglobin A1c percentageOrd ered By: Karen Aly on 02-03-2025 HbA1c (Bld) [Mass fraction] 6.7 % High <5.7 [facility] Lactic Acidon 02-03-2025 Lactate [Moles/Vol] 1.6 mmol/L Normal 0.0-2.0 [facility] Comment on above: Performed By: #### L 503.6005 ####[facility] [address] [place], [place], [address] Lactic acid measurementOrder ed By: Nicholas Galarza on 02-03-2025 Lactate [Moles/Vol] 1.6 mmol/L 0.0-2.0 [facility] Legionella Antigen Urineon 0 02-03-2025 LEGU URINE, CLEAN CATCH Legionella Ag, Urine Negative (See interpretation below) Normal [facility] Comment on above: Performed By: #### M 300.6590, M300.4600 ####[facility] [address] [place], [place], [address] Lower Ext Art Exam w/o Exerc jimmy 02-03-2025 Lower Ext Art Exam w/o Exercis Normal [facility] MRSA Wound DNA by PCRon 01-13 MRSA DNA ASSAY Normal Negative [facility] Comment on above: Order Comment: left foot Result Comment: Canc elled via OM: Duplicate Order Performed By: #### L 8200.1075 ####[facility] [address] [place], [address] PROBE CHECK Normal [facility] Comment on above: Order Comment: left foot Result Comment: Canc elled via OM: Duplicate Order Performed By: #### L 8200.1075 ####[facility] [address] [place], [address] SA DNA ASSAY Normal Negative [facility] Comment on above: Order Comment: left foot Result Comment: Canc elled via OM: Duplicate Order Performed By: #### L 8200.1075 ####[facility] [address] [place], [address] SPC Normal [facility] Comment on above: Order Comment: left foot Result Comment: Canc elled via OM: Duplicate Order Performed By: #### L 8200.1075 ####[facility] [address] [place], [address] Magnesiumon 02-03-2025 Magnesium [Mass/Vol] 1.7 mg/dL Normal 1.5-2.2 [facility] Comment on above: Performed By: #### L 100.0100, L500.4050, L501.5200, L501.6710, L501.9985, L101.9900 ####[facility] [address] [place], [address] Magnesium measurement (mass/ volume)Ordered By: Karen Aly on 02-03-2025 Magnesium (Unsp spec) [Mass/Vol] 1.7 mg/dL 1.5-2.2 [facility] Platelet estimateOrdered By: Karen Aly on 02-03-2025 Platelets LM Ql (Bld) ADEQUATE ADEQ [facility] RESPIRATORY PANEL MOLECULARo n 02-03-2025 RP PANEL Normal [facility] Comment on above: Performed By: #### M 100.638 ####[facility] [address] [place], [place], [id number] Respiratory pathogens detect ion panel by molecular detection methodOrdered By: Karen Aly on 02-03-2025 Respiratory pathogens DNA and RNA panel ANGELY+probe (Resp) [facility] Routine wound cultureOrdered By: Kee Mejia on 02-03-2025 Microbial culture, routine Meth. resista nt Staph. aureus Abnormal [facility] Microbial culture, routine Enterobacter cloacae complex Abnormal [facility] Serum globulin measurementOr dered By: Karen Aly on 02-03-2025 Globulin (S) [Mass/Vol] 2.7 g/dL 2.2-4.2 [facility] Serum or plasma C reactive p rotein measurement (mass/volume)Ordered By: Karen Aly on 02-03-2025 CRP [Mass/Vol] 138.00 mg/L High 0.0-3.0 [facility] Serum or plasma albumin antoine urement (mass/volume)Ordered By: Karen Aly on 02-03-2025 Albumin [Mass/Vol] 2.9 g/dL Low 3.4-4.8 [facility] Serum or plasma albumin/glob ulin mass ratioOrdered By: [facility] Jermain on 02-03-2025 Albumin/Globulin [Mass ratio] 1.1 {ratio} 0.9-2.4 [facility] Serum or plasma alkaline marilin sphatase measurementOrdered By: Karen Aly on 02-03-2025 ALP [Catalytic activity/Vol] 106 U/L 40-129 [facility] Staphylococcus aureus DNA de tection by probe and target amplification methodOrdered By: Kee Mejia on 02-03-2025 S. aureus DNA ANGELY+probe Ql (Unsp spec) Positive High Negative [facility] Strep pneumoniae Antig(UR,CS F)on 02-03-2025 STPAG Normal [facility] Comment on above: Performed By: #### M 300.2680, S082.5639 ####[facility] [address] [facility] [address] [place], [place], [id number] Total proteinOrdered By: Aut elena Aly on 02-03-2025 Protein [Mass/Vol] 5.6 g/dL Low 5.9-8.4 [facility] 12 Lead EKGon 02-02-2025 12 Lead EKG Normal [facility] Absolute lymphocyte countOrd ered By: Nicholas Galarza on 02-02-2025 Lymphocytes Auto (Unsp spec) [#/Vol] 0.50 10*3/uL Low 0.83-4.51 [facility] Absolute neutrophil countOrd ered By: Nicholas Galarza on 02-02-2025 Neutrophils (Bld) [#/Vol] 12.0 10*3/uL High 2.0-7.7 [facility] Activated partial thrombopla stin time (aPTT) in platelet poor plasma by coagulation aOrdered By: Nicholas Galarza on 02-02-2025 aPTT Coag (PPP) [Time] 34.0 s 24.1-36.2 [facility] Anion gap in Serum or Plasma Ordered By: Nicholas Galarza on 02-02-2025 Anion gap [Moles/Vol] 14 mmol/L 5-15 [facility] Automated lymphocyte count a s percentage of total leukocytesOrdered By: Nicholas Galarza on 02-02-2025 Lymphocytes/100 WBC Auto (Unsp spec) 3.6 % Low 19-41 [facility] BUN/creatinine ratioOrdered By: Nicholas Galarza on 02-02-2025 Urea nitrogen/Creatinine [Mass ratio] 17.0 mg/mg 10-20 [facility] Basophil percentageOrdered B y: Nicholas Galarza on 02-02-2025 Basophils/100 WBC (Bld) 0.2 % 0-1 [facility] Bilirubin Test strip Ql (U)O rdered By: Nicholas Galarza on 02-02-2025 Bilirubin Ql (U) Negative Negative [facility] Bilirubin, totalOrdered By: Nicholas Galarza on 02-02-2025 Bilirubin [Mass/Vol] 0.50 mg/dL 0.00-1.30 [facility] Blood cultureOrdered By: Hermes Galarza on 02-02-2025 Bacteria identified Cx Nom (Bld) No growth in 5 days. [facility] Bacteria identified Cx Nom (Bld) No growth in 5 days. [facility] Brain/Head without Contrasto n 02-02-2025 Brain/Head without Contrast Normal [facility] CBC W/Diff, Automatedon 07-2 -2024 Absolute Lymph 0.50 X10 3/uL Low 0.83-4.51 [facility] Comment on above: Performed By: #### L 300.4310, L500.4050, L503.6005, M200.1000, L100.0100, L300.3900 ####[facility] [address] [place], [address] Absolute Neut 12.0 X10 3/uL High 2.0-7.7 [facility] Comment on above: Performed By: #### L 300.4310, L500.4050, L503.6005, M200.1000, L100.0100, L300.3900 ####[facility] [address] [place], [address] Basophils/100 WBC (Bld) 0.2 % Normal 0-1 [facility] Comment on above: Performed By: #### L 300.4310, L500.4050, L503.6005, M200.1000, L100.0100, L300.3900 ####[facility] [address] [place], [address] Eosinophils/100 WBC (Bld) 0.6 % Normal 0-5 [facility] Comment on above: Performed By: #### L 300.4310, L500.4050, L503.6005, M200.1000, L100.0100, L300.3900 ####[facility] [address] [place], [address] Erythrocyte distribution width (RBC) [Ratio] 13.6 % Normal 11.6-14.6 [facility] Comment on above: Performed By: #### L 300.4310, L500.4050, L503.6005, M200.1000, L100.0100, L300.3900 ####[facility] [address] [place], [address] Hematocrit (Bld) [Volume fraction] 33.5 % Low 40-54 [facility] Comment on above: Performed By: #### L 300.4310, L500.4050, L503.6005, M200.1000, L100.0100, L300.3900 ####[facility] [address] [place], [address] Hemoglobin (Bld) [Mass/Vol] 10.9 g/dL Low 13.0-16. 5 [facility] Comment on above: Performed By: #### L 300.4310, L500.4050, L503.6005, M200.1000, L100.0100, L300.3900 ####[facility] [address] [place], [address] IG% 0.700 Normal 0.0-0.9 [facility] Comment on above: Result Comment: IG% - Immature Granulocytes (promyelocytes, myelocytes andmetamyelocytes) > 1% indicates that a LEFT SHIFT is Present. Performed By: #### L 300.4310, L500.4050, L503.6005, M200.1000, L100.0100, L300.3900 ####[facility] [address] [place], [address] Lymphocytes/100 WBC (Bld) 3.6 % Low 19-41 [facility] Comment on above: Performed By: #### L 300.4310, L500.4050, L503.6005, M200.1000, L100.0100, L300.3900 ####[facility] [address] [place], [address] MCH (RBC) [Entitic mass] 27.7 pg Normal 27.0-32.0 [facility] Comment on above: Performed By: #### L 300.4310, L500.4050, L503.6005, M200.1000, L100.0100, L300.3900 ####[facility] [address] [place], [address] MCHC (RBC) [Mass/Vol] 32.5 g/dL Normal 32-36 [facility] Comment on above: Performed By: #### L 300.4310, L500.4050, L503.6005, M200.1000, L100.0100, L300.3900 ####[facility] [address] [place], [address] MCV (RBC) [Entitic vol] 85.0 fL Normal 80-94 [facility] Comment on above: Performed By: #### L 300.4310, L500.4050, L503.6005, M200.1000, L100.0100, L300.3900 ####[facility] [address] [place], [address] Monocytes/100 WBC (Bld) 8.7 % Normal 0-10 [facility] Comment on above: Performed By: #### L 300.4310, L500.4050, L503.6005, M200.1000, L100.0100, L300.3900 ####[facility] [address] [place], [address] Neutrophils/100 WBC (Bld) 86.2 % High 47-70 [facility] Comment on above: Performed By: #### L 300.4310, L500.4050, L503.6005, M200.1000, L100.0100, L300.3900 ####[facility] [address] [place], [address] Nucleated RBC (Bld) [#/Vol] 0 10*3/uL Normal 0-5 [facility] Comment on above: Performed By: #### L 300.4310, L500.4050, L503.6005, M200.1000, L100.0100, L300.3900 ####[facility] [address] [place], [address] Platelet mean volume (Bld) [Entitic vol] 9.4 fL Normal 6.2-12.0 [facility] Comment on above: Performed By: #### L 300.4310, L500.4050, L503.6005, M200.1000, L100.0100, L300.3900 ####[facility] [address] [place], [address] Platelets (Bld) [#/Vol] 203 10*3/uL Normal 150-450 [facility] Comment on above: Performed By: #### L 300.4310, L500.4050, L503.6005, M200.1000, L100.0100, L300.3900 ####[facility] [address] [place], [address] RBC (Bld) [#/Vol] 3.94 10*6/uL Low 4.6-6.2 [facility] Comment on above: Performed By: #### L 300.4310, L500.4050, L503.6005, M200.1000, L100.0100, L300.3900 ####[facility] [address] [place], [address] RDW SD 42.2 fl Normal 35.1-43.9 [facility] Comment on above: Performed By: #### L 300.4310, L500.4050, L503.6005, M200.1000, L100.0100, L300.3900 ####[facility] [address] [place], [address] WBC (Bld) [#/Vol] 13.9 10*3/uL High 4.4-11.0 [facility] Comment on above: Performed By: #### L 300.4310, L500.4050, L503.6005, M200.1000, L100.0100, L300.3900 ####[facility] [address] [place], [address] CRPon 02-02-2025 C-REACTIVE PROT 94.50 mg/L High 0.0-3.0 [facility] Comment on above: Order Comment: Comme nts: may add to ED labs Performed By: #### L 101.9900, L501.5200, L501.6710 ####[facility] [address] [place], [address] Carbon dioxide, total [Moles /volume] in Central venous bloodOrdered By: Nicholas Galarza on 02-02-2025 CO2 [Moles/Vol] 22.4 mmol/L 21.0-32.0 [facility] Chest 1 View (Portable)on Chest 1 View (Portable) Normal [facility] Chloride assayOrdered By: Jose Juan Galarza on 02-02-2025 Chloride [Moles/Vol] 104 mmol/L 98-108 [facility] Comprehensive Metabolic Prof ilon 02-02-2025 Albumin [Mass/Vol] 3.5 g/dL Normal 3.4-4.8 [facility] Comment on above: Performed By: #### L 300.4310, L500.4050, L503.6005, M200.1000, L100.0100, L300.3900 ####[facility] [address] [place], [address] Albumin/Globulin [Mass ratio] 1.5 {ratio} Normal 0.9-2.4 [facility] Comment on above: Performed By: #### L 300.4310, L500.4050, L503.6005, M200.1000, L100.0100, L300.3900 ####[facility] [address] [place], [address] ALK PHOS 115 U/L Normal 40-129 [facility] Comment on above: Performed By: #### L 300.4310, L500.4050, L503.6005, M200.1000, L100.0100, L300.3900 ####[facility] [address] [place], [address] ALT [Catalytic activity/Vol] 10 U/L Normal <=46 [facility] Comment on above: Performed By: #### L 300.4310, L500.4050, L503.6005, M200.1000, L100.0100, L300.3900 ####[facility] [address] [place], [address] AST [Catalytic activity/Vol] 15 U/L Normal <=37 [facility] Comment on above: Performed By: #### L 300.4310, L500.4050, L503.6005, M200.1000, L100.0100, L300.3900 ####[facility] [address] [place], [address] Bilirubin [Mass/Vol] 0.50 mg/dL Normal 0.00-1.30 [facility] Comment on above: Performed By: #### L 300.4310, L500.4050, L503.6005, M200.1000, L100.0100, L300.3900 ####[facility] [address] [place], [address] BUN/CRE 17.0 RATIO Normal 10-20 [facility] Comment on above: Performed By: #### L 300.4310, L500.4050, L503.6005, M200.1000, L100.0100, L300.3900 ####[facility] [address] [place], [address] Calcium [Mass/Vol] 8.7 mg/dL Normal 7.6-11.0 [facility] Comment on above: Performed By: #### L 300.4310, L500.4050, L503.6005, M200.1000, L100.0100, L300.3900 ####[facility] [id number] [place], [address] Chloride [Moles/Vol] 104 mmol/L Normal 98-108 [facility] Comment on above: Performed By: #### L 300.4310, L500.4050, L503.6005, M200.1000, L100.0100, L300.3900 ####[facility] [address] [place], [address] CO2 [Moles/Vol] 22.4 mmol/L Normal 21.0-32.0 [facility] Comment on above: Performed By: #### L 300.4310, L500.4050, L503.6005, M200.1000, L100.0100, L300.3900 ####[facility] [address] [place], [address] Creatinine [Mass/Vol] 1.04 mg/dL Normal 0.70-1.20 [facility] Comment on above: Performed By: #### L 300.4310, L500.4050, L503.6005, M200.1000, L100.0100, L300.3900 ####[facility] [address] [place], [address] ECRCL 79.39 ml/min Normal 50-250 [facility] Comment on above: Performed By: #### L 300.4310, L500.4050, L503.6005, M200.1000, L100.0100, L300.3900 ####[facility] [address] [place], [address] GAP 14 Normal 5-15 [facility] Comment on above: Performed By: #### L 300.4310, L500.4050, L503.6005, M200.1000, L100.0100, L300.3900 ####[facility] [address] [place], [address] GFR/1.73 sq M.predicted among non-blacks MDRD (S/P/Bld) [Vol rate/Area] 74 mL/min/{1.73_m2} Normal >60 [facility] Comment on above: Result Comment: mL/m in/1.73m2 CKD-EPI Creatinine Equation (2020) Performed By: #### L 300.4310, L500.4050, L503.6005, M200.1000, L100.0100, L300.3900 ####[facility] [address] [place], [address] Globulin (S) [Mass/Vol] 2.3 g/dL Normal 2.2-4.2 [facility] Comment on above: Performed By: #### L 300.4310, L500.4050, L503.6005, M200.1000, L100.0100, L300.3900 ####[facility] [address] [place], [address] Glucose [Mass/Vol] 195 mg/dL High 70-99 [facility] Comment on above: Performed By: #### L 300.4310, L500.4050, L503.6005, M200.1000, L100.0100, L300.3900 ####[facility] [address] [place], [address] Potassium [Moles/Vol] 3.8 mmol/L Normal 3.3-5.1 [facility] Comment on above: Performed By: #### L 300.4310, L500.4050, L503.6005, M200.1000, L100.0100, L300.3900 ####[facility] [address] [place], [address] Sodium [Moles/Vol] 141 mmol/L Normal 133-145 [facility] Comment on above: Performed By: #### L 300.4310, L500.4050, L503.6005, M200.1000, L100.0100, L300.3900 ####[facility] [address] [place], [address] T PROT 5.8 g/dL Low 5.9-8.4 [facility] Comment on above: Performed By: #### L 300.4310, L500.4050, L503.6005, M200.1000, L100.0100, L300.3900 ####[facility] [address] [place], [address] Urea nitrogen [Mass/Vol] 18 mg/dL Normal 4-19 [facility] Comment on above: Performed By: #### L 300.4310, L500.4050, L503.6005, M200.1000, L100.0100, L300.3900 ####[facility] [address] [place], [address] Emergency Department Summary on 02-02-2025 Emergency Department Summary Normal [facility] Eosinophil percentageOrdered By: Nicholas Galarza on 02-02-2025 Eosinophils/100 WBC (Bld) 0.6 % 0-5 [facility] Erythrocyte Sed Rateon 02-02 SED RATE 23 mm/hr High 0-20 [facility] Comment on above: Performed By: #### L 101.9900, L501.5200, L501.6710 ####[facility] [address] [place], [address] Erythrocyte distribution wid th ratioOrdered By: Nicholas Galarza on 02-02-2025 Erythrocyte distribution width (RBC) [Ratio] 13.6 % 11.6-14.6 [facility] Erythrocyte distribution wid th standard deviationOrdered By: Nicholas Galarza on 02-02-2025 Erythrocyte distribution width (RBC) [Ratio] 42.2 fl 35.1-43.9 [facility] Erythrocyte sedimentation ra teOrdered By: Karen White on 02-02-2025 ESR (Bld) [Velocity] 23 mm/h High 0-20 [facility] Foot 2 Viewson 02-02-2025 Foot 2 Views Normal [facility] Glomerular filtration rate ( GFR) estimation/1.73 sq m using serum, plasma, or whole bOrdered By: Nicholas Galarza on 02-02-2025 GFR/1.73 sq M.predicted among non-blacks MDRD (S/P/Bld) [Vol rate/Area] 74 mL/min/{1.73_m2} >60 [facility] Comment on above: mL/min/1.73m2 CKD-EP I Creatinine Equation (2020) H AND P Exam - Hospitaliston 02-02-2025 H&P Exam - Hospitalist Normal [facility] Hematocrit Auto (Bld) [Volum e fraction]Ordered By: Nicholas Galarza on 02-02-2025 Hematocrit (Bld) [Volume fraction] 33.5 % Low 40-54 [facility] Hemoglobin measurementOrdere d By: Nicholas Galarza on 02-02-2025 Hemoglobin (Bld) [Mass/Vol] 10.9 g/dL Low 13.0-16. 5 [facility] Immature granulocytes/100 WB C Auto (Bld)Ordered By: Nicholas Galarza on 02-02-2025 Immature granulocytes/100 WBC (Bld) 0.700 % 0.0-0.9 [facility] Comment on above: IG% - Immature Granu locytes (promyelocytes, myelocytes and metamyelocytes) > 1% indicates that a LEFT SHIFT is Present. International normalized rat io (INR) calculationOrdered By: Nicholas Galarza on 02-02-2025 INR Coag (Bld) [Relative time] 1.4 {INR} [facility] Ketones Test strip Ql (U)Ord ered By: Nicholas Galarza on 02-02-2025 Ketones Ql (U) Negative Negative [facility] Laboratory - Chemistry and C hemistry - challengeOrdered By: Nicholas Galarza on 02-02-2025 AST [Catalytic activity/Vol] 15 U/L <38 [facility] Lactic Acidon 02-02-2025 Lactate [Moles/Vol] 3.1 mmol/L Invalid Interpretation Code 0.0-2.0 [facility] Comment on above: Order Comment: Y Result Comment: Crit ical Result(s) Called at: 2106 by: EVON JONAS??Results read back by same. Performed By: #### L 300.4310, L500.4050, L503.6005, M200.1000, L100.0100, L300.3900 ####[facility] [address] [place], [place], [address] MCV (mean corpuscular volume ) determinationOrdered By: Nicholas Galarza on 02-02-2025 MCV (RBC) [Entitic vol] 85.0 fL 80-94 [facility] Magnesiumon 02-02-2025 Magnesium [Mass/Vol] 0.9 mg/dL Invalid Interpretation Code 1.5-2.2 [facility] Comment on above: Order Comment: Comme nts: may add to ED labs Result Comment: Crit ical Result(s) Called at:2345 by: KIM MARTINEZ??Results read back by same. Performed By: #### L 101.9900, L501.5200, L501.6710 ####[facility] [address] [place], [place], [id number] Magnesium measurement (mass/ volume)Ordered By: Karen Aly on 02-02-2025 Magnesium (Unsp spec) [Mass/Vol] 0.9 mg/dL Low 1.5-2.2 [facility] Comment on above: Critical Result(s) C alled at:2345 by: KIM ADRIAN Results read back by same. Mean corpuscular hemoglobin (MCH) determinationOrdered By: Nicholas Galarza on 02-02-2025 MCH (RBC) [Entitic mass] 27.7 pg 27.0-32.0 [facility] Mean corpuscular hemoglobin concentration (MCHC) determinationOrdered By: Nicholas Galarza on 02-02-2025 MCHC (RBC) [Mass/Vol] 32.5 g/dL 32-36 [facility] Mean platelet volume determi nationOrdered By: Nicholas Galarza on 02-02-2025 Platelet mean volume (Bld) [Entitic vol] 9.4 fL 6.2-12.0 [facility] Microscopic analysis of urin e for red blood cells (RBC)Ordered By: Nicholas Galarza on 02-02-2025 Microscopic analysis of urine for red blood cells (RBC) 5-10 SEEN /hpf 0-5 [facility] Monocyte percentageOrdered B y: Nicholas Galarza on 02-02-2025 Monocytes/100 WBC (Bld) 8.7 % 0-10 [facility] Mucus LM Ql (Urine sed)Order ed By: Nicholas Galarza on 02-02-2025 Mucus Ql (Urine sed) 0 SEEN /hpf [facility] Neutrophil percentageOrdered By: Nicholas Galarza on 02-02-2025 Neutrophils/100 WBC (Bld) 86.2 % High 47-70 [facility] Nitrite Test strip Ql (U)Ord ered By: Nicholas Galarza on 02-02-2025 Nitrite Ql (U) Negative Negative [facility] Nucleated red blood cell per centageOrdered By: Nicholas Galarza on 02-02-2025 Nucleated RBC/100 WBC (Bld) [Ratio] 0 % 0-5 [facility] Partial Thromboplast Timeon 02-02-2025 aPTT Coag (Bld) [Time] 34.0 s Normal 24.1-36.2 [facility] Comment on above: Performed By: #### L 300.4310, L500.4050, L503.6005, M200.1000, L100.0100, L300.3900 ####[facility] [address] [place], [place], [address] Platelet countOrdered By: Jose Juan Galarza on 02-02-2025 Platelets (Bld) [#/Vol] 203 10*3/uL 150-450 [facility] Potassium measurement (mass/ volume)Ordered By: Nicholas Galarza on 02-02-2025 Potassium (Unsp spec) [Mass/Vol] 3.8 mmol/L 3.3-5.1 [facility] Protein Test strip Ql (U)Ord ered By: Nicholas Galarza on 02-02-2025 Protein Ql (U) 30 mg/dl High Negative [facility] Prothrombin Time w/INRon INR Coag (PPP) [Relative time] 1.4 {INR} Normal [facility] Comment on above: Performed By: #### L 300.4310, L500.4050, L503.6005, M200.1000, L100.0100, L300.3900 ####[facility] [address] [place], [place], [id number] PT Coag (PPP) [Time] 17.3 s High 11.7-14.9 [facility] Comment on above: Performed By: #### L 300.4310, L500.4050, L503.6005, M200.1000, L100.0100, L300.3900 ####[facility] [address] [place], [place], [id number] Prothrombin timeOrdered By: Nicholas Galarza on 02-02-2025 PT Coag (PPP) [Time] 17.3 s High 11.7-14.9 [facility] RBC Auto (Bld) [#/Vol]Ordere d By: Nicholas Galarza on 02-02-2025 RBC (Bld) [#/Vol] 3.94 10*6/uL Low 4.6-6.2 [facility] Serum creatinine measurement (mass/volume)Ordered By: Nicholas Galarza on 02-02-2025 Creatinine [Mass/Vol] 1.04 mg/dL 0.70-1.20 [facility] Serum globulin measurementOr dered By: Nicholas Galarza on 02-02-2025 Globulin (S) [Mass/Vol] 2.3 g/dL 2.2-4.2 [facility] Serum glucose measurement (m ass/volume)Ordered By: Nicholas Galarza on 02-02-2025 Glucose [Mass/Vol] 195 mg/dL High 70-99 [facility] Serum or plasma C reactive p rotein measurement (mass/volume)Ordered By: Karen Aly on 02-02-2025 CRP [Mass/Vol] 94.50 mg/L High 0.0-3.0 [facility] Serum or plasma alanine davis otransferase (ALT) measurementOrdered By: Nicholas Galarza on 02-02-2025 ALT [Catalytic activity/Vol] 10 U/L <47 [facility] Serum or plasma albumin antoine urement (mass/volume)Ordered By: Nicholas Galarza on 02-02-2025 Albumin [Mass/Vol] 3.5 g/dL 3.4-4.8 [facility] Serum or plasma albumin/glob ulin mass ratioOrdered By: Nicholas Galarza on 02-02-2025 Albumin/Globulin [Mass ratio] 1.5 {ratio} 0.9-2.4 [facility] Serum or plasma alkaline marilin sphatase measurementOrdered By: Nicholas Galarza on 02-02-2025 ALP [Catalytic activity/Vol] 115 U/L 40-129 [facility] Serum or plasma calcium antoine urement (mass/volume)Ordered By: Nicholas Galarza on 02-02-2025 Calcium [Mass/Vol] 8.7 mg/dL 7.6-11.0 [facility] Serum or plasma urea nitroge n measurement (mass/volume)Ordered By: Nicholas Galarza on 02-02-2025 Urea nitrogen [Mass/Vol] 18 mg/dL 4-19 [facility] Sodium levelOrdered By: Supriya Galarza on 02-02-2025 Sodium [Moles/Vol] 141 mmol/L 133-145 [facility] Squamous epithelial cells de tection in urine sediment by light microscopyOrdered By: Nicholas Galarza on 02-02-2025 Epithelial cells.squamous LM Ql (Urine sed) 0-5 SEEN /hpf 0-5 [facility] Total proteinOrdered By: Hermes Galarza on 02-02-2025 Protein [Mass/Vol] 5.8 g/dL Low 5.9-8.4 [facility] Urinalysis, Completeon 02-02 BACTERIA 1+ /hpf Normal None Seen [facility] Comment on above: Order Comment: LEILA TER SPECIMEN Performed By: #### L 400.0001, M100.2200 ####[facility] [address] [place], [address] EPI,SQUAMOUS 0-5 SEEN Normal 0-5 [facility] Comment on above: Order Comment: LEILA TER SPECIMEN Performed By: #### L 400.0001, M100.2200 ####[facility] [address] [place], [address] RBC 5-10 SEEN Normal 0-5 [facility] Comment on above: Order Comment: LEILA TER SPECIMEN Performed By: #### L 400.0001, M100.2200 ####[facility] [address] [place], [address] WBC 5-10 SEEN Normal 0-5 [facility] Comment on above: Order Comment: LEILA TER SPECIMEN Performed By: #### L 400.0001, M100.2200 ####[facility] [address] [place], [address] Mucus Ql (Urine sed) 0 SEEN Normal [facility] Comment on above: Order Comment: LEILA TER SPECIMEN Performed By: #### L 400.0001, M100.2200 ####[facility] [address] [place], [address] Urine Legionella pneumophila antigen detectionOrdered By: Karen White on 02-02-2025 L. pneumophila Ag Ql (U) [facility] Urine clarityOrdered By: Hermes Galarza on 02-02-2025 Clarity (U) Clear Clear [facility] Urine color determinationOrd ered By: Nicholas Galarza on 02-02-2025 Color (U) Yellow Yellow [facility] Urine cultureOrdered By: Hermes Galarza on 02-02-2025 Bacteria identified Cx Nom (U) Culture exhibits no growth. [facility] Urine glucose detectionOrder ed By: Nicholas Galarza on 02-02-2025 Glucose Ql (U) 250 mg/dl High Normal [facility] Urine leukocyte esterase det ection by dipstickOrdered By: Nicholas Galarza on 02-02-2025 Leukocyte esterase Test strip Ql (U) Negative Negative [facility] Urine pHOrdered By: Nicholas ron on 02-02-2025 pH (U) 5.0 [pH] 5.0 - 8.0 [facility] Urine sediment bacteria coun t by microscopy (number/high power field)Ordered By: Nicholas Galarza on 02-02-2025 Bacteria LM.HPF (Urine sed) [#/Area] 1 /[HPF] None Seen [facility] Urine specific gravity measu rementOrdered By: Nicholas Galarza on 02-02-2025 Specific gravity (U) [Rel density] 1.015 1.002-1.03 0 [facility] Urine urobilinogen measureme ntOrdered By: Nicholas Galarza on 02-02-2025 Urobilinogen Ql (U) Normal mg/dl Normal [facility] White blood cell (WBC) count Ordered By: Nicholas Galarza on 02-02-2025 WBC (Bld) [#/Vol] 13.9 10*3/uL High 4.4-11.0 [facility] White blood cell countOrdere d By: Nicholas Galarza on 02-02-2025 White blood cell count 5-10 SEEN /hpf 0-5 [facility] Anion gap in Serum or Plasma Ordered By: Walter Becker on 12-22-2024 Anion gap [Moles/Vol] 10 mmol/L 5-15 [facility] Automated blood erythrocyte countOrdered By: Walter Becker on 12-22-2024 RBC (Bld) [#/Vol] 4.43 10*6/uL Low 4.6-6.2 [facility] Comment on above: Order Comment: 215.2 Performed By: #### L 100.0500, L501.9985, L500.4050 ####[facility] [address] [place], [address] Automated blood hematocrit ( percentage)Ordered By: Walter Becker on 12-22-2024 Hematocrit (Bld) [Volume fraction] 37.9 % Low 40-54 [facility] Comment on above: Order Comment: 215.2 Performed By: #### L 100.0500, L501.9985, L500.4050 ####[facility] [address] [place], [address] BUN/creatinine ratioOrdered By: Walter Becker on 12-22-2024 Urea nitrogen/Creatinine [Mass ratio] 19.8 mg/mg 10-20 [facility] Bilirubin, totalOrdered By: Walter Becker on 12-22-2024 Bilirubin [Mass/Vol] 0.43 mg/dL 0.00-1.30 [facility] CBC-Complete Blood Cnt No Di ffon 12-22-2024 RDW SD 41.9 fl Normal 35.1-43.9 [facility] Comment on above: Order Comment: 215.2 Performed By: #### L 100.0500, L501.9985, L500.4050 ####[facility] [address] [place], [address] Carbon dioxide, total [Moles /volume] in Central venous bloodOrdered By: Walter Becker on 12-22-2024 CO2 [Moles/Vol] 26.7 mmol/L 21.0-32.0 [facility] Chloride assayOrdered By: Horner on 12-22-2024 Chloride [Moles/Vol] 103 mmol/L 98-108 [facility] Comprehensive Metabolic Prof ilon 12-22-2024 Albumin [Mass/Vol] 3.6 g/dL Normal 3.4-4.8 [facility] Comment on above: Order Comment: 215.2 Performed By: #### L 100.0500, L501.9985, L500.4050 ####[facility] [address] [place], [address] Albumin/Globulin [Mass ratio] 1.7 {ratio} Normal 0.9-2.4 [facility] Comment on above: Order Comment: 215.2 Performed By: #### L 100.0500, L501.9985, L500.4050 ####[facility] [address] [place], [address] ALK PHOS 104 U/L Normal 40-129 [facility] Comment on above: Order Comment: 215.2 Performed By: #### L 100.0500, L501.9985, L500.4050 ####[facility] [address] [place], [address] ALT [Catalytic activity/Vol] 13 U/L Normal <=46 [facility] Comment on above: Order Comment: 215.2 Performed By: #### L 100.0500, L501.9985, L500.4050 ####[facility] [address] [place], [address] AST [Catalytic activity/Vol] 14 U/L Normal <=37 [facility] Comment on above: Order Comment: 215.2 Performed By: #### L 100.0500, L501.9985, L500.4050 ####[facility] [address] [place], [address] Bilirubin [Mass/Vol] 0.43 mg/dL Normal 0.00-1.30 [facility] Comment on above: Order Comment: 215.2 Performed By: #### L 100.0500, L501.9985, L500.4050 ####[facility] [address] [place], [address] BUN/CRE 19.8 RATIO Normal 10-20 [facility] Comment on above: Order Comment: 215.2 Performed By: #### L 100.0500, L501.9985, L500.4050 ####[facility] [address] [place], [address] Calcium [Mass/Vol] 9.5 mg/dL Normal 7.6-11.0 [facility] Comment on above: Order Comment: 215.2 Performed By: #### L 100.0500, L501.9985, L500.4050 ####[facility] [address] [place], [address] Chloride [Moles/Vol] 103 mmol/L Normal 98-108 [facility] Comment on above: Order Comment: 215.2 Performed By: #### L 100.0500, L501.9985, L500.4050 ####[facility] [address] [place], [address] CO2 [Moles/Vol] 26.7 mmol/L Normal 21.0-32.0 [facility] Comment on above: Order Comment: 215.2 Performed By: #### L 100.0500, L501.9985, L500.4050 ####[facility] [address] [place], [address] Creatinine [Mass/Vol] 1.04 mg/dL Normal 0.70-1.20 [facility] Comment on above: Order Comment: 215.2 Performed By: #### L 100.0500, L501.9985, L500.4050 ####[facility] [address] [place], [address] GAP 10 Normal 5-15 [facility] Comment on above: Order Comment: 215.2 Performed By: #### L 100.0500, L501.9985, L500.4050 ####[facility] [address] [place], [address] GFR/1.73 sq M.predicted among non-blacks MDRD (S/P/Bld) [Vol rate/Area] 74 mL/min/{1.73_m2} Normal >60 [facility] Comment on above: Order Comment: 215.2 Result Comment: mL/m in/1.73m2 CKD-EPI Creatinine Equation (2020) Performed By: #### L 100.0500, L501.9985, L500.4050 ####[facility] [address] [place], [address] Globulin (S) [Mass/Vol] 2.2 g/dL Normal 2.2-4.2 [facility] Comment on above: Order Comment: 215.2 Performed By: #### L 100.0500, L501.9985, L500.4050 ####[facility] [address] [place], [address] Glucose [Mass/Vol] 131 mg/dL High 70-99 [facility] Comment on above: Order Comment: 215.2 Performed By: #### L 100.0500, L501.9985, L500.4050 ####[facility] [address] [place], [address] Potassium [Moles/Vol] 4.2 mmol/L Normal 3.3-5.1 [facility] Comment on above: Order Comment: 215.2 Performed By: #### L 100.0500, L501.9985, L500.4050 ####[facility] [address] [place], [address] Sodium [Moles/Vol] 141 mmol/L Normal 133-145 [facility] Comment on above: Order Comment: 215.2 Performed By: #### L 100.0500, L501.9985, L500.4050 ####[facility] [address] [place], [address] T PROT 5.8 g/dL Low 5.9-8.4 [facility] Comment on above: Order Comment: 215.2 Performed By: #### L 100.0500, L501.9985, L500.4050 ####[facility] [address] [place], [address] Urea nitrogen [Mass/Vol] 21 mg/dL High 4-19 [facility] Comment on above: Order Comment: 215.2 Performed By: #### L 100.0500, L501.9985, L500.4050 ####[facility] [address] [place], [address] Erythrocyte distribution wid th ratioOrdered By: Walter Becker on 12-22-2024 Erythrocyte distribution width (RBC) [Ratio] 13.5 % Normal 11.6-14.6 [facility] Comment on above: Order Comment: 215.2 Performed By: #### L 100.0500, L501.9985, L500.4050 ####[facility] [address] [place], [address] Erythrocyte distribution wid th standard deviationOrdered By: Walter Becker on 12-22-2024 Erythrocyte distribution width (RBC) [Ratio] 41.9 fl 35.1-43.9 [facility] Glomerular filtration rate ( GFR) estimation/1.73 sq m using serum, plasma, or whole bOrdered By: Walter Becker on 12-22-2024 GFR/1.73 sq M.predicted among non-blacks MDRD (S/P/Bld) [Vol rate/Area] 74 mL/min/{1.73_m2} >60 [facility] Comment on above: mL/min/1.73m2 CKD-EP I Creatinine Equation (2020) Hemoglobin A1con 12-22-2024 HbA1c (Bld) [Mass fraction] 7.0 % High <=5.6 [facility] Comment on above: Order Comment: 215.2 Result Comment: Norm al < 5.7 % Prediabetic 5.7 - 6.4 % Diabetic >or= 6.5 % Please note range changes. Performed By: #### L 100.0500, L501.9985, L500.4050 ####[facility] [address] [place], [address] Hemoglobin A1c percentageOrd ered By: Walter Becker on 12-22-2024 HbA1c (Bld) [Mass fraction] 7.0 % High <5.7 [facility] Comment on above: Normal < 5.7 % Predi abetic 5.7 - 6.4 % Diabetic >or= 6.5 % Please note range changes. Hemoglobin measurementOrdere d By: Walter Becker on 12-22-2024 Hemoglobin (Bld) [Mass/Vol] 12.4 g/dL Low 13.0-16. 5 [facility] Comment on above: Order Comment: 215.2 Performed By: #### L 100.0500, L501.9985, L500.4050 ####[facility] [address] [place], [address] Laboratory - Chemistry and C hemistry - challengeOrdered By: Walter Becker on 12-22-2024 AST [Catalytic activity/Vol] 14 U/L <38 [facility] MCV (mean corpuscular volume ) determinationOrdered By: Walter Becker on 12-22-2024 MCV (RBC) [Entitic vol] 85.6 fL Normal 80-94 [facility] Comment on above: Order Comment: 215.2 Performed By: #### L 100.0500, L501.9985, L500.4050 ####[facility] [address] [place], [address] Mean corpuscular hemoglobin (MCH) determinationOrdered By: Walter Becker on 12-22-2024 MCH (RBC) [Entitic mass] 28.0 pg Normal 27.0-32.0 [facility] Comment on above: Order Comment: 215.2 Performed By: #### L 100.0500, L501.9985, L500.4050 ####[facility] [address] [place], [address] Mean corpuscular hemoglobin concentration (MCHC) determinationOrdered By: Walter Becker on 12-22-2024 MCHC (RBC) [Mass/Vol] 32.7 g/dL Normal 32-36 [facility] Comment on above: Order Comment: 215.2 Performed By: #### L 100.0500, L501.9985, L500.4050 ####[facility] [address] [place], [place], [address] Mean platelet volume determi nationOrdered By: Walter Becker on 12-22-2024 Platelet mean volume (Bld) [Entitic vol] 9.5 fL Normal 6.2-12.0 [facility] Comment on above: Order Comment: 215.2 Performed By: #### L 100.0500, L501.9985, L500.4050 ####[facility] [address] [place], [place], [address] No Panel InformationOrdered By: Walter Becker on 12-22-2024 14 U/L <38 [facility] Platelet countOrdered By: Horner on 12-22-2024 Platelets (Bld) [#/Vol] 214 10*3/uL Normal 150-450 [facility] Comment on above: Order Comment: 215.2 Performed By: #### L 100.0500, L501.9985, L500.4050 ####[facility] [address] [place], [place], [address] Potassium measurement (mass/ volume)Ordered By: Walter Becker on 12-22-2024 Potassium (Unsp spec) [Mass/Vol] 4.2 mmol/L 3.3-5.1 [facility] Serum creatinine measurement (mass/volume)Ordered By: Walter Becker on 12-22-2024 Creatinine [Mass/Vol] 1.04 mg/dL 0.70-1.20 [facility] Serum globulin measurementOr dered By: Walter Becker on 12-22-2024 Globulin (S) [Mass/Vol] 2.2 g/dL 2.2-4.2 [facility] Serum glucose measurement (m ass/volume)Ordered By: Walter Becker on 12-22-2024 Glucose [Mass/Vol] 131 mg/dL High 70-99 [facility] Serum or plasma alanine davis otransferase (ALT) measurementOrdered By: Walter Becker on 12-22-2024 ALT [Catalytic activity/Vol] 13 U/L <47 [facility] Serum or plasma albumin antoine urement (mass/volume)Ordered By: Walter Becker on 12-22-2024 Albumin [Mass/Vol] 3.6 g/dL 3.4-4.8 [facility] Serum or plasma albumin/glob ulin mass ratioOrdered By: Walter Becker on 12-22-2024 Albumin/Globulin [Mass ratio] 1.7 {ratio} 0.9-2.4 [facility] Serum or plasma alkaline marilin sphatase measurementOrdered By: Walter Becker on 12-22-2024 ALP [Catalytic activity/Vol] 104 U/L 40-129 [facility] Serum or plasma calcium antoine urement (mass/volume)Ordered By: Walter Becker on 12-22-2024 Calcium [Mass/Vol] 9.5 mg/dL 7.6-11.0 [facility] Serum or plasma urea nitroge n measurement (mass/volume)Ordered By: Walter Becker on 12-22-2024 Urea nitrogen [Mass/Vol] 21 mg/dL High 4-19 [facility] Sodium levelOrdered By: Walter Becker on 12-22-2024 Sodium [Moles/Vol] 141 mmol/L 133-145 [facility] Total proteinOrdered By: Crystal Becker on 12-22-2024 Protein [Mass/Vol] 5.8 g/dL Low 5.9-8.4 [facility] White blood cell (WBC) count Ordered By: Walter Becker on 12-22-2024 WBC (Bld) [#/Vol] 9.4 10*3/uL Normal 4.4-11.0 [facility] Comment on above: Order Comment: 215.2 Performed By: #### L 100.0500, L501.9985, L500.4050 ####[facility] [address] [place], [place], [address] Vitamin D,25 Hydroxyon 12-16 Vitamin D 25-OH 31.8 ng/mL Normal 30-100 [facility] Comment on above: Order Comment: 215.2 Result Comment: Laure min D StatusDeficiency: <20 ng/mL (50nmol/L)Insufficiency: 20-30 ng/mL (50-75 nmol/L)Sufficiency: 30-100 ng/mL (75-250 nmol/L)Toxicity: >100 ng/mL (>250 nmol/L) Performed By: #### L 506.1001 ####[facility] [address] [place], [address] Urine Cultureon 11-25-2024 URC Culture exhibits no growth. Normal [facility] Comment on above: Performed By: #### L 400.0001, L100.0500, L500.4050, M100.2200 ####[facility] [address] [place], [place], [id number] Anion gap in Serum or Plasma Ordered By: Walter Becker on 11-24-2024 Anion gap [Moles/Vol] 14 mmol/L 5- [facility] BUN/creatinine ratioOrdered By: Walter Becker on 11-24-2024 Urea nitrogen/Creatinine [Mass ratio] 19.5 mg/mg 10- [facility] Bilirubin Test strip Ql (U)O rdered By: Walter Becker on 11-24-2024 Bilirubin Ql (U) Negative Negative [facility] Bilirubin, totalOrdered By: Walter Becker on 11-24-2024 Bilirubin [Mass/Vol] 0.34 mg/dL 0.00-1.30 [facility] CBC-Complete Blood Cnt No Di ffon 11-24-2024 Erythrocyte distribution width (RBC) [Ratio] 13.4 % Normal 11.6-14.6 [facility] Comment on above: Order Comment: 215.2 Performed By: #### L 400.0001, L100.0500, L500.4050, M100.2200 ####[facility] [address] [place], [address] Hematocrit (Bld) [Volume fraction] 38.0 % Low 40-54 [facility] Comment on above: Order Comment: 215.2 Performed By: #### L 400.0001, L100.0500, L500.4050, M100.2200 ####[facility] [address] [place], [address] Hemoglobin (Bld) [Mass/Vol] 12.1 g/dL Low 13.0-16. 5 [facility] Comment on above: Order Comment: 215.2 Performed By: #### L 400.0001, L100.0500, L500.4050, M100.2200 ####[facility] [address] [place], [address] MCH (RBC) [Entitic mass] 27.6 pg Normal 27.0-32.0 [facility] Comment on above: Order Comment: 215.2 Performed By: #### L 400.0001, L100.0500, L500.4050, M100.0 ####[facility] [address] [place], [address] MCHC (RBC) [Mass/Vol] 31.8 g/dL Low 32-36 [facility] Comment on above: Order Comment: 215.2 Performed By: #### L 400.0001, L100.0500, L500.4050, M100.2200 ####[facility] [address] [place], [address] MCV (RBC) [Entitic vol] 86.6 fL Normal 80-94 [facility] Comment on above: Order Comment: 215.2 Performed By: #### L 400.0001, L100.0500, L500.4050, M100.2200 ####[facility] [address] [place], [address] Platelet mean volume (Bld) [Entitic vol] 9.4 fL Normal 6.2-12.0 [facility] Comment on above: Order Comment: 215.2 Performed By: #### L 400.0001, L100.0500, L500.4050, M100.2200 ####[facility] [address] [place], [address] Platelets (Bld) [#/Vol] 200 10*3/uL Normal 150-450 [facility] Comment on above: Order Comment: 215.2 Performed By: #### L 400.0001, L100.0500, L500.4050, M100.2200 ####[facility] [address] [place], [address] RBC (Bld) [#/Vol] 4.39 10*6/uL Low 4.6-6.2 [facility] Comment on above: Order Comment: 215.2 Performed By: #### L 400.0001, L100.0500, L500.4050, M100.2200 ####[facility] [address] [place], [address] RDW SD 41.4 fl Normal 35.1-43.9 [facility] Comment on above: Order Comment: 215.2 Performed By: #### L 400.0001, L100.0500, L500.4050, M100.2200 ####[facility] [address] [place], [address] WBC (Bld) [#/Vol] 8.9 10*3/uL Normal 4.4-11.0 [facility] Comment on above: Order Comment: 215.2 Performed By: #### L 400.0001, L100.0500, L500.4050, M100.2200 ####[facility] [address] [place], [address] Carbon dioxide, total [Moles /volume] in Central venous bloodOrdered By: Walter Becker on 11-24-2024 CO2 [Moles/Vol] 21.7 mmol/L 21.0-32.0 [facility] Chloride assayOrdered By: Horner on 11-24-2024 Chloride [Moles/Vol] 105 mmol/L 98-108 [facility] Comprehensive Metabolic Prof ilon 11-24-2024 Albumin [Mass/Vol] 3.3 g/dL Low 3.4-4.8 [facility] Comment on above: Order Comment: 215.2 Performed By: #### L 400.0001, L100.0500, L500.4050, M100.2200 ####[facility] [address] [place], [address] Albumin/Globulin [Mass ratio] 1.6 {ratio} Normal 0.9-2.4 [facility] Comment on above: Order Comment: 215.2 Performed By: #### L 400.0001, L100.0500, L500.4050, M100.2200 ####[facility] [address] [place], [address] ALK PHOS 101 U/L Normal 40-129 [facility] Comment on above: Order Comment: 215.2 Performed By: #### L 400.0001, L100.0500, L500.4050, M100.2200 ####[facility] [address] [place], [address] ALT [Catalytic activity/Vol] 14 U/L Normal <=46 [facility] Comment on above: Order Comment: 215.2 Performed By: #### L 400.0001, L100.0500, L500.4050, M100.2200 ####[facility] [address] [place], [address] AST [Catalytic activity/Vol] 16 U/L Normal <=37 [facility] Comment on above: Order Comment: 215.2 Performed By: #### L 400.0001, L100.0500, L500.4050, M100.2200 ####[facility] [address] [place], [address] Bilirubin [Mass/Vol] 0.34 mg/dL Normal 0.00-1.30 [facility] Comment on above: Order Comment: 215.2 Performed By: #### L 400.0001, L100.0500, L500.4050, M100.2200 ####[facility] [address] [place], [address] BUN/CRE 19.5 RATIO Normal 10-20 [facility] Comment on above: Order Comment: 215.2 Performed By: #### L 400.0001, L100.0500, L500.4050, M100.2200 ####[facility] [address] [place], [address] Calcium [Mass/Vol] 8.9 mg/dL Normal 7.6-11.0 [facility] Comment on above: Order Comment: 215.2 Performed By: #### L 400.0001, L100.0500, L500.4050, M100.2200 ####[facility] [address] [place], [address] Chloride [Moles/Vol] 105 mmol/L Normal 98-108 [facility] Comment on above: Order Comment: 215.2 Performed By: #### L 400.0001, L100.0500, L500.4050, M100.2200 ####[facility] [address] [place], [address] CO2 [Moles/Vol] 21.7 mmol/L Normal 21.0-32.0 [facility] Comment on above: Order Comment: 215.2 Performed By: #### L 400.0001, L100.0500, L500.4050, M100.2200 ####[facility] [address] [place], [address] Creatinine [Mass/Vol] 1.15 mg/dL Normal 0.70-1.20 [facility] Comment on above: Order Comment: 215.2 Performed By: #### L 400.0001, L100.0500, L500.4050, M100.2200 ####[facility] [address] [place], [address] GAP 14 Normal 5-15 [facility] Comment on above: Order Comment: 215.2 Performed By: #### L 400.0001, L100.0500, L500.4050, M100.2200 ####[facility] [address] [place], [address] GFR/1.73 sq M.predicted among non-blacks MDRD (S/P/Bld) [Vol rate/Area] 66 mL/min/{1.73_m2} Normal >60 [facility] Comment on above: Order Comment: 215.2 Result Comment: mL/m in/1.73m2 CKD-EPI Creatinine Equation (2020) Performed By: #### L 400.0001, L100.0500, L500.4050, M100.2200 ####[facility] [address] [place], [address] Globulin (S) [Mass/Vol] 2.0 g/dL Low 2.2-4.2 [facility] Comment on above: Order Comment: 215.2 Performed By: #### L 400.0001, L100.0500, L500.4050, M100.2200 ####[facility] [address] [place], [address] Glucose [Mass/Vol] 139 mg/dL High 70-99 [facility] Comment on above: Order Comment: 215.2 Performed By: #### L 400.0001, L100.0500, L500.4050, M100.2200 ####[facility] [address] [place], [address] Potassium [Moles/Vol] 4.2 mmol/L Normal 3.3-5.1 [facility] Comment on above: Order Comment: 215.2 Performed By: #### L 400.0001, L100.0500, L500.4050, M100.2200 ####[facility] [address] [place], [address] Sodium [Moles/Vol] 141 mmol/L Normal 133-145 [facility] Comment on above: Order Comment: 215.2 Performed By: #### L 400.0001, L100.0500, L500.4050, M100.2200 ####[facility] [address] [place], [address] T PROT 5.3 g/dL Low 5.9-8.4 [facility] Comment on above: Order Comment: 215.2 Performed By: #### L 400.0001, L100.0500, L500.4050, M100.2200 ####[facility] [address] [place], [address] Urea nitrogen [Mass/Vol] 22 mg/dL High 4-19 [facility] Comment on above: Order Comment: 215.2 Performed By: #### L 400.0001, L100.0500, L500.4050, M100.2200 ####[facility] [address] [place], [address] Erythrocyte distribution wid th ratioOrdered By: Walter Becker on 11-24-2024 Erythrocyte distribution width (RBC) [Ratio] 13.4 % 11.6-14.6 [facility] Erythrocyte distribution wid th standard deviationOrdered By: Walter Becker on 11-24-2024 Erythrocyte distribution width (RBC) [Ratio] 41.4 fl 35.1-43.9 [facility] Glomerular filtration rate ( GFR) estimation/1.73 sq m using serum, plasma, or whole bOrdered By: Walter Becker on 11-24-2024 GFR/1.73 sq M.predicted among non-blacks MDRD (S/P/Bld) [Vol rate/Area] 66 mL/min/{1.73_m2} >60 [facility] Comment on above: mL/min/1.73m2 CKD-EP I Creatinine Equation (2020) Hematocrit Auto (Bld) [Volum e fraction]Ordered By: Walter Becker on 11-24-2024 Hematocrit (Bld) [Volume fraction] 38.0 % Low 40-54 [facility] Hemoglobin measurementOrdere d By: Walter Becker on 11-24-2024 Hemoglobin (Bld) [Mass/Vol] 12.1 g/dL Low 13.0-16. 5 [facility] Ketones Test strip Ql (U)Ord ered By: Walter Becker on 11-24-2024 Ketones Ql (U) Negative Negative [facility] Laboratory - Chemistry and C hemistry - challengeOrdered By: Walter Becker on 11-24-2024 AST [Catalytic activity/Vol] 16 U/L <38 [facility] MCV (mean corpuscular volume ) determinationOrdered By: Walter Becker on 11-24-2024 MCV (RBC) [Entitic vol] 86.6 fL 80-94 [facility] Mean corpuscular hemoglobin (MCH) determinationOrdered By: Walter Becker on 11-24-2024 MCH (RBC) [Entitic mass] 27.6 pg 27.0-32.0 [facility] Mean corpuscular hemoglobin concentration (MCHC) determinationOrdered By: Walter Becker on 11-24-2024 MCHC (RBC) [Mass/Vol] 31.8 g/dL Low 32-36 [facility] Mean platelet volume determi nationOrdered By: Walter Becker on 11-24-2024 Platelet mean volume (Bld) [Entitic vol] 9.4 fL 6.2-12.0 [facility] Microscopic analysis of urin e for red blood cells (RBC)Ordered By: Walter Becker on 11-24-2024 Microscopic analysis of urine for red blood cells (RBC) 0 SEEN /hpf 0-5 [facility] Mucus LM Ql (Urine sed)Order ed By: Walter Becker on 11-24-2024 Mucus Ql (Urine sed) 0 SEEN /hpf [facility] Nitrite Test strip Ql (U)Ord ered By: Walter Becker on 11-24-2024 Nitrite Ql (U) Negative Negative [facility] No Panel InformationOrdered By: Walter Becker on 11-24-2024 16 U/L <38 [facility] Platelet countOrdered By: Horner on 11-24-2024 Platelets (Bld) [#/Vol] 200 10*3/uL 150-450 [facility] Potassium measurement (mass/ volume)Ordered By: Walter Becker on 11-24-2024 Potassium (Unsp spec) [Mass/Vol] 4.2 mmol/L 3.3-5.1 [facility] Protein Test strip Ql (U)Ord ered By: Walter Becker on 11-24-2024 Protein Ql (U) Negative Negative [facility] RBC Auto (Bld) [#/Vol]Ordere d By: Walter Becker on 11-24-2024 RBC (Bld) [#/Vol] 4.39 10*6/uL Low 4.6-6.2 [facility] Serum creatinine measurement (mass/volume)Ordered By: Walter Becker on 11-24-2024 Creatinine [Mass/Vol] 1.15 mg/dL 0.70-1.20 [facility] Serum globulin measurementOr dered By: Walter Becker on 11-24-2024 Globulin (S) [Mass/Vol] 2.0 g/dL Low 2.2-4.2 [facility] Serum glucose measurement (m ass/volume)Ordered By: Walter Becker on 11-24-2024 Glucose [Mass/Vol] 139 mg/dL High 70-99 [facility] Serum or plasma alanine davis otransferase (ALT) measurementOrdered By: Walter Becker on 11-24-2024 ALT [Catalytic activity/Vol] 14 U/L <47 [facility] Serum or plasma albumin antoine urement (mass/volume)Ordered By: Walter Becker on 11-24-2024 Albumin [Mass/Vol] 3.3 g/dL Low 3.4-4.8 [facility] Serum or plasma albumin/glob ulin mass ratioOrdered By: Walter Becker on 11-24-2024 Albumin/Globulin [Mass ratio] 1.6 {ratio} 0.9-2.4 [facility] Serum or plasma alkaline marilin sphatase measurementOrdered By: Walter Becker on 11-24-2024 ALP [Catalytic activity/Vol] 101 U/L 40-129 [facility] Serum or plasma calcium antoine urement (mass/volume)Ordered By: Walter Becker on 11-24-2024 Calcium [Mass/Vol] 8.9 mg/dL 7.6-11.0 [facility] Serum or plasma urea nitroge n measurement (mass/volume)Ordered By: Walter Becker on 11-24-2024 Urea nitrogen [Mass/Vol] 22 mg/dL High 4-19 [facility] Sodium levelOrdered By: Walter Becker on 11-24-2024 Sodium [Moles/Vol] 141 mmol/L 133-145 [facility] Squamous epithelial cells de tection in urine sediment by light microscopyOrdered By: Walter Becker on 11-24-2024 Epithelial cells.squamous LM Ql (Urine sed) 0 SEEN /hpf 0-5 [facility] Total proteinOrdered By: Crystal Becker on 11-24-2024 Protein [Mass/Vol] 5.3 g/dL Low 5.9-8.4 [facility] Urinalysis, Completeon 11-24 WBC 0-5 SEEN Normal 0-5 [facility] Comment on above: Order Comment: LEILA TER SPECIMEN Performed By: #### L 400.0001, L100.0500, L500.4050, M100.2200 ####[facility] [address] [place], [address] BACTERIA 0 SEEN Normal None Seen [facility] Comment on above: Order Comment: LEILA TER SPECIMEN Performed By: #### L 400.0001, L100.0500, L500.4050, M100.2200 ####[facility] [address] [place], [address] EPI,SQUAMOUS 0 SEEN Normal 0-5 [facility] Comment on above: Order Comment: LEILA TER SPECIMEN Performed By: #### L 400.0001, L100.0500, L500.4050, M100.2200 ####[facility] [address] [place], [address] Mucus Ql (Urine sed) 0 SEEN Normal [facility] Comment on above: Order Comment: LEILA TER SPECIMEN Performed By: #### L 400.0001, L100.0500, L500.4050, M100.2200 ####[facility] [address] [place], [address] RBC 0 SEEN Normal 0-5 [facility] Comment on above: Order Comment: LEILA TER SPECIMEN Performed By: #### L 400.0001, L100.0500, L500.4050, M100.2200 ####[facility] [address] [place], [address] Urine clarityOrdered By: Crystal Becker on 11-24-2024 Clarity (U) Clear Clear [facility] Urine color determinationOrd ered By: Walter Becker on 11-24-2024 Color (U) Yellow Yellow [facility] Urine cultureOrdered By: Crystal Becker on 11-24-2024 Bacteria identified Cx Nom (U) Culture exhibits no growth. [facility] Urine glucose detectionOrder ed By: Walter Becker on 11-24-2024 Glucose Ql (U) Normal mg/dl Normal [facility] Urine leukocyte esterase det ection by dipstickOrdered By: Walter Becker on 11-24-2024 Leukocyte esterase Test strip Ql (U) Negative Negative [facility] Urine pHOrdered By: Walter floyd on 11-24-2024 pH (U) 6.0 [pH] 5.0 - 8.0 [facility] Urine sediment bacteria coun t by microscopy (number/high power field)Ordered By: Watler Becker on 11-24-2024 Bacteria LM.HPF (Urine sed) [#/Area] 0 /[HPF] None Seen [facility] Urine specific gravity measu rementOrdered By: Walter Becker on 11-24-2024 Specific gravity (U) [Rel density] 1.010 1.002-1.03 0 [facility] Urine urobilinogen measureme ntOrdered By: Walter Becker on 11-24-2024 Urobilinogen Ql (U) Normal mg/dl Normal [facility] White blood cell (WBC) count Ordered By: Walter Becker on 11-24-2024 WBC (Bld) [#/Vol] 8.9 10*3/uL 4.4-11.0 [facility] White blood cell countOrdere d By: Walter Becker on 11-24-2024 White blood cell count 0-5 SEEN /hpf 0-5 [facility] CNPNon 11-06-2024 CNPN Telephone (4CQ) RICHARD ROY ([id number]) 1945 M Date Time Provider Department 11/06/24 ABDULAZIZ CALDERA 4CQ During your visit today, we recorded the following information about you: Ann Raymond 11/06/2024 10:55 AM Signed Spoke with spouse as patient is over due for visit with PCP , stated patient is at [facility] in [place]. We did not remove PCP. Abdulaziz Caldera [...] time a week. - blood sugar diagnostic (Maaguzi ULTRA TEST) test strip Test blood sugar(s) [...] Status:Closed by AMADA COHN on 11/06/24 Normal [facility] Cardiology Visit Reporton Cardiology Visit Report Normal [facility] Calculated very low density lipoprotein (VLDL) cholesterol measurementOrdered By: Walter Becker on 10-05-2024 VLDL Cholesterol 41 mg/dL High 5-40 [facility] LDL calc ser/plasOrdered By: Walter Becker on 10-05-2024 LDL Cholesterol, Calculated 31 mg/dL [facility] Comment on above: Bcyxdpdgam=897-271 m g/dL & Higher Zwwx=636 mg/dL or greater Lipid Profileon 10-05-2024 CHOL:HDL 3.37 Normal [facility] Comment on above: Order Comment: 215.2 Performed By: #### L 500.4100 ####[facility] [address] [place], [address] Cholesterol [Mass/Vol] 103 mg/dL Normal <=200 [facility] Comment on above: Order Comment: 215.2 Result Comment: Chol esterol level, Desirable <200 mg/dLBorderline high cholesterol 200-239 mg/dLHigh cholesterol >=240 mg/dLRecommendations of the NCEP Adult Treatment Panel for thefollowing risk-cutoff thresholds for the [place] Americanpulation. Performed By: #### L 500.4100 ####[facility] [address] [place], [address] Cholesterol in HDL [Mass/Vol] 31 mg/dL Low [facility] Comment on above: Order Comment: 215.2 Result Comment: Stephanie onal Cholesterol Education Program (NCEP) guidelines:<40 mg/dL: Low HDL-cholesterol (major risk factor for CHD)>= 60 mg/dL: High HDL-cholesterol (negative risk factor forCHD)HDL-cholesterol is affected by a number of factors, e.g.smoking, exercise, hormones, sex and age. Performed By: #### L 500.4100 ####[facility] [address] [place], [address] Cholesterol in LDL [Mass/Vol] 31 mg/dL Normal [facility] Comment on above: Order Comment: 215.2 Result Comment: Bord yeyvtv=296-578 mg/dL Higher Powt=539 mg/dL or greater Performed By: #### L 500.4100 ####[facility] [address] [place], [address] Cholesterol in VLDL [Mass/Vol] 41 mg/dL High 5-40 [facility] Comment on above: Order Comment: 215.2 Performed By: #### L 500.4100 ####[facility] [address] [place], [place], [address] Triglyceride [Mass/Vol] 207 mg/dL High [facility] Comment on above: Order Comment: 215.2 Result Comment: The drugs N-Acetylcysteine and Metamizole may falselydepress this assay.Normal range: <150 mg/dLBorderline High: 150-199 mg/dLHigh: 200-499 mg/dLVery High: >500 mg/dL Performed By: #### L 500.4100 ####[facility] [address] [place], [place], [id number] Screening total cholesterol/ high density lipoprotein (HDL) cholesterol ratioOrdered By: Walter Becker on 10-05-2024 Cholesterol.total/Cholester ol in HDL [Mass ratio] 3.37 {ratio} [facility] Serum or plasma cholesterol in HDL measurement (mass/volume)Ordered By: Walter Becker on 10-05-2024 Cholesterol in HDL [Mass/Vol] 31 mg/dL Low >40 [facility] Comment on above: National Cholesterol Education Program (NCEP) guidelines:<40 mg/dL: Low HDL-cholesterol (major risk factor for CHD)>= 60 mg/dL: High HDL-cholesterol (negative risk factor for CHD)HDL-cholesterol is affected by a number of factors, e.g. smoking, exercise, hormones, sex and age. Serum or plasma cholesterol measurement (mass/volume)Ordered By: Walter Becker on 10-05-2024 Cholesterol [Mass/Vol] 103 mg/dL <201 [facility] Comment on above: Cholesterol level, D esirable <200 mg/dLBorderline high cholesterol 200-239 mg/dLHigh cholesterol >=240 mg/dLRecommendations of the NCEP Adult Treatment Panel for the following risk-cutoff thresholds for the [place] population. Triglycerides measurementOrd ered By: Walter Becker on 10-05-2024 Triglyceride [Mass/Vol] 207 mg/dL High <199 [facility] Comment on above: The drugs N-Acetylcy steine and Metamizole may falsely depress this assay. Normal range: <150 mg/dLBorderline High: 150-199 mg/dLHigh: 200-499 mg/dLVery High: >500 mg/dL Anion gap in Serum or Plasma Ordered By: Walter Becker on 09-29-2024 Anion gap [Moles/Vol] 11 mmol/L 5-15 [facility] BUN/creatinine ratioOrdered By: Walter Becker on 09-29-2024 Urea nitrogen/Creatinine [Mass ratio] 20.5 mg/mg High 10-20 [facility] Bilirubin, totalOrdered By: Walter Becker on 09-29-2024 Bilirubin [Mass/Vol] 0.31 mg/dL 0.00-1.30 [facility] CBC-Complete Blood Cnt No Di ffon 09-29-2024 Erythrocyte distribution width (RBC) [Ratio] 13.7 % Normal 11.6-14.6 [facility] Comment on above: Order Comment: 215.2 Performed By: #### L 100.0500, L500.4050, L501.9985 ####[facility] [address] [place], [address] Hematocrit (Bld) [Volume fraction] 37.0 % Low 40-54 [facility] Comment on above: Order Comment: 215.2 Performed By: #### L 100.0500, L500.4050, L501.9985 ####[facility] [address] [place], [address] Hemoglobin (Bld) [Mass/Vol] 11.8 g/dL Low 13.0-16. 5 [facility] Comment on above: Order Comment: 215.2 Performed By: #### L 100.0500, L500.4050, L501.9985 ####[facility] [address] [place], [address] MCH (RBC) [Entitic mass] 27.9 pg Normal 27.0-32.0 [facility] Comment on above: Order Comment: 215.2 Performed By: #### L 100.0500, L500.4050, L501.9985 ####[facility] [address] [place], [address] MCHC (RBC) [Mass/Vol] 31.9 g/dL Low 32-36 [facility] Comment on above: Order Comment: 215.2 Performed By: #### L 100.0500, L500.4050, L501.9985 ####[facility] [address] [place], [address] MCV (RBC) [Entitic vol] 87.5 fL Normal 80-94 [facility] Comment on above: Order Comment: 215.2 Performed By: #### L 100.0500, L500.4050, L501.9985 ####[facility] [address] [place], [address] Platelet mean volume (Bld) [Entitic vol] 9.6 fL Normal 6.2-12.0 [facility] Comment on above: Order Comment: 215.2 Performed By: #### L 100.0500, L500.4050, L501.9985 ####[facility] [address] [place], [address] Platelets (Bld) [#/Vol] 226 10*3/uL Normal 150-450 [facility] Comment on above: Order Comment: 215.2 Performed By: #### L 100.0500, L500.4050, L501.9985 ####[facility] [address] [place], [address] RBC (Bld) [#/Vol] 4.23 10*6/uL Low 4.6-6.2 [facility] Comment on above: Order Comment: 215.2 Performed By: #### L 100.0500, L500.4050, [id number] ####[facility] [address] [place], [address] RDW SD 43.7 fl Normal 35.1-43.9 [facility] Comment on above: Order Comment: 215.2 Performed By: #### L 100.0500, L500.4050, [id number] ####[facility] [address] [place], [address] WBC (Bld) [#/Vol] 8.9 10*3/uL Normal 4.4-11.0 [facility] Comment on above: Order Comment: 215.2 Performed By: #### L 100.0500, L500.4050, [id number] ####[facility] [address] [place], [address] Carbon dioxide, total [Moles /volume] in Central venous bloodOrdered By: Walter Becker on 09-29-2024 CO2 [Moles/Vol] 25.6 mmol/L 21.0-32.0 [facility] Chloride assayOrdered By: Horner on 09-29-2024 Chloride [Moles/Vol] 104 mmol/L 98-108 [facility] Comprehensive Metabolic Prof ilon 09-29-2024 Albumin [Mass/Vol] 3.6 g/dL Normal 3.4-4.8 [facility] Comment on above: Order Comment: 215.2 Performed By: #### L 100.0500, L500.4050, [id number] ####[facility] [address] [place], [address] Albumin/Globulin [Mass ratio] 1.8 {ratio} Normal 0.9-2.4 [facility] Comment on above: Order Comment: 215.2 Performed By: #### L 100.0500, L500.4050, [id number] ####[facility] [address] [place], [address] ALK PHOS 101 U/L Normal 40-129 [facility] Comment on above: Order Comment: 215.2 Performed By: #### L 100.0500, L500.4050, [id number] ####[facility] [address] [place], [address] ALT [Catalytic activity/Vol] 19 U/L Normal <=46 [facility] Comment on above: Order Comment: 215.2 Performed By: #### L 100.0500, L500.4050, [id number] ####[facility] [address] [place], [address] AST [Catalytic activity/Vol] 15 U/L Normal <=37 [facility] Comment on above: Order Comment: 215.2 Performed By: #### L 100.0500, L500.4050, [id number] ####[facility] [address] [place], [address] Bilirubin [Mass/Vol] 0.31 mg/dL Normal 0.00-1.30 [facility] Comment on above: Order Comment: 215.2 Performed By: #### L 100.0500, L500.4050, [id number] ####[facility] [address] [place], [address] BUN/CRE 20.5 RATIO High 10-20 [facility] Comment on above: Order Comment: 215.2 Performed By: #### L 100.0500, L500.4050, [id number] ####[facility] [address] [place], [address] Calcium [Mass/Vol] 9.2 mg/dL Normal 7.6-11.0 [facility] Comment on above: Order Comment: 215.2 Performed By: #### L 100.0500, L500.4050, [id number] ####[facility] [address] [place], [address] Chloride [Moles/Vol] 104 mmol/L Normal 98-108 [facility] Comment on above: Order Comment: 215.2 Performed By: #### L 100.0500, L500.4050, [id number] ####[facility] [address] [place], [address] CO2 [Moles/Vol] 25.6 mmol/L Normal 21.0-32.0 [facility] Comment on above: Order Comment: 215.2 Performed By: #### L 100.0500, L500.4050, [id number] ####[facility] [address] [place], [address] Creatinine [Mass/Vol] 1.10 mg/dL Normal 0.70-1.20 [facility] Comment on above: Order Comment: 215.2 Performed By: #### L 100.0500, L500.4050, [id number] ####[facility] [address] [place], [address] GAP 11 Normal 5-15 [facility] Comment on above: Order Comment: 215.2 Performed By: #### L 100.0500, L500.4050, [id number] ####[facility] [address] [place], [address] GFR/1.73 sq M.predicted among non-blacks MDRD (S/P/Bld) [Vol rate/Area] 70 mL/min/{1.73_m2} Normal >60 [facility] Comment on above: Order Comment: 215.2 Result Comment: mL/m in/1.73m2 CKD-EPI Creatinine Equation (2020) Performed By: #### L 100.0500, L500.4050, L501.9985 ####[facility] [address] [place], [address] Globulin (S) [Mass/Vol] 2.0 g/dL Low 2.2-4.2 [facility] Comment on above: Order Comment: 215.2 Performed By: #### L 100.0500, L500.4050, [id number] ####[facility] [address] [place], [address] Glucose [Mass/Vol] 155 mg/dL High 70-99 [facility] Comment on above: Order Comment: 215.2 Performed By: #### L 100.0500, L500.4050, [id number] ####[facility] [address] [place], [address] Potassium [Moles/Vol] 4.2 mmol/L Normal 3.3-5.1 [facility] Comment on above: Order Comment: 215.2 Performed By: #### L 100.0500, L500.4050, [id number] ####[facility] [address] [place], [address] Sodium [Moles/Vol] 141 mmol/L Normal 133-145 [facility] Comment on above: Order Comment: 215.2 Performed By: #### L 100.0500, L500.4050, [id number] ####[facility] [address] [place], [address] T PROT 5.6 g/dL Low 5.9-8.4 [facility] Comment on above: Order Comment: 215.2 Performed By: #### L 100.0500, L500.4050, [id number] ####[facility] [address] [place], [address] Urea nitrogen [Mass/Vol] 23 mg/dL High 4-19 [facility] Comment on above: Order Comment: 215.2 Performed By: #### L 100.0500, L500.4050, [id number] ####[facility] [address] [place], [address] Erythrocyte distribution wid th (RBC) [Ratio]Ordered By: Walter Becker on 09-29-2024 Erythrocyte distribution width (RBC) [Entitic vol] 43.7 fL 35.1-43.9 [facility] Erythrocyte distribution wid th ratioOrdered By: Walter Becker on 09-29-2024 Erythrocyte distribution width (RBC) [Ratio] 13.7 % 11.6-14.6 [facility] GFR/1.73 sq M.predicted kimberly g non-blacks MDRD (S/P/Bld) [Vol rate/Area]Ordered By: Walter Becker on 09-29-2024 Estimated GFR (MDRD) Non-Af Amer 70 >60 [facility] Comment on above: mL/min/1.73m2 CKD-EP I Creatinine Equation (2020) Hematocrit Auto (Bld) [Volum e fraction]Ordered By: Walter Becker on 09-29-2024 Hematocrit (Bld) [Volume fraction] 37.0 % Low 40-54 [facility] Hemoglobin A1con 09-29-2024 HbA1c (Bld) [Mass fraction] 6.6 % Normal <=5.6 [facility] Comment on above: Order Comment: 215.2 Performed By: #### L 100.0500, L500.4050, L501.9985 ####[facility] [address] [place], [place], [id number] Hemoglobin A1c percentageOrd ered By: Walter Becker on 09-29-2024 HbA1c (Bld) [Mass fraction] 6.6 % >5.7 [facility] Hemoglobin measurementOrdere d By: Walter Becker on 09-29-2024 Hemoglobin (Bld) [Mass/Vol] 11.8 g/dL Low 13.0-16. 5 [facility] Laboratory - Chemistry and C hemistry - challengeOrdered By: Walter Becker on 09-29-2024 AST [Catalytic activity/Vol] 15 U/L <38 [facility] MCV (mean corpuscular volume ) determinationOrdered By: Walter Becker on 09-29-2024 MCV (RBC) [Entitic vol] 87.5 fL 80-94 [facility] Mean corpuscular hemoglobin (MCH) determinationOrdered By: Walter Becker on 09-29-2024 MCH (RBC) [Entitic mass] 27.9 pg 27.0-32.0 [facility] Mean corpuscular hemoglobin concentration (MCHC) determinationOrdered By: Walter Becker on 09-29-2024 MCHC (RBC) [Mass/Vol] 31.9 g/dL Low 32-36 [facility] Mean platelet volume determi nationOrdered By: Walter Becker on 09-29-2024 Platelet mean volume (Bld) [Entitic vol] 9.6 fL 6.2-12.0 [facility] Platelet countOrdered By: Horner on 09-29-2024 Platelets (Bld) [#/Vol] 226 10*3/uL 150-450 [facility] Potassium (Unsp spec) [Mass/ Vol]Ordered By: Walter Becker on 09-29-2024 Potassium [Moles/Vol] 4.2 mmol/L 3.3-5.1 [facility] RBC Auto (Bld) [#/Vol]Ordere d By: Walter Becker on 09-29-2024 RBC (Bld) [#/Vol] 4.23 10*6/uL Low 4.6-6.2 [facility] Serum creatinine measurement (mass/volume)Ordered By: Walter Becker on 09-29-2024 Creatinine [Mass/Vol] 1.10 mg/dL 0.70-1.20 [facility] Serum globulin measurementOr dered By: Walter Becker on 09-29-2024 Globulin (S) [Mass/Vol] 2.0 g/dL Low 2.2-4.2 [facility] Serum glucose measurement (m ass/volume)Ordered By: Walter Becker on 09-29-2024 Glucose [Mass/Vol] 155 mg/dL High 70-99 [facility] Serum or plasma alanine davis otransferase (ALT) measurementOrdered By: Walter Becker on 09-29-2024 ALT [Catalytic activity/Vol] 19 U/L <47 [facility] Serum or plasma albumin antoine urement (mass/volume)Ordered By: Walter Becker on 09-29-2024 Albumin [Mass/Vol] 3.6 g/dL 3.4-4.8 [facility] Serum or plasma albumin/glob ulin mass ratioOrdered By: Walter Becker on 09-29-2024 Albumin/Globulin [Mass ratio] 1.8 {ratio} 0.9-2.4 [facility] Serum or plasma alkaline marilin sphatase measurementOrdered By: Walter Becker on 09-29-2024 ALP [Catalytic activity/Vol] 101 U/L 40-129 [facility] Serum or plasma calcium antoine urement (mass/volume)Ordered By: Walter Becker on 09-29-2024 Calcium [Mass/Vol] 9.2 mg/dL 7.6-11.0 [facility] Serum or plasma urea nitroge n measurement (mass/volume)Ordered By: Walter Becker on 09-29-2024 Urea nitrogen [Mass/Vol] 23 mg/dL High 4-19 [facility] Sodium levelOrdered By: Walter Becker on 09-29-2024 Sodium [Moles/Vol] 141 mmol/L 133-145 [facility] Total proteinOrdered By: Crystal Becker on 09-29-2024 Protein [Mass/Vol] 5.6 g/dL Low 5.9-8.4 [facility] White blood cell (WBC) count Ordered By: Walter Becker on 09-29-2024 WBC (Bld) [#/Vol] 8.9 10*3/uL 4.4-11.0 [facility] Urine Cultureon 08-05-2024 URC Culture exhibits no growth. Normal [facility] Comment on above: Performed By: #### L 400.0001, M100.2200 ####[facility] [address] [place], [address] Albumin to globulin ratioOrd ered By: Walter Becker on 08-04-2024 Albumin/Globulin [Mass ratio] 1.0 {ratio} 0.9-2.4 [facility] Bilirubin Test strip Ql (U)O rdered By: Walter Becker on 08-04-2024 Bilirubin Ql (U) Negative Negative [facility] Bilirubin, totalOrdered By: Walter Becker on 08-04-2024 Bilirubin [Mass/Vol] 0.50 mg/dL 0.20-1.00 [facility] Comment on above: For patients on eltr ombopag therapy, use of Dimension [place] TBIL is not recommended. Blood urea nitrogen (BUN)/cr eatinine ratioOrdered By: Walter Becker on 08-04-2024 Urea nitrogen/Creatinine [Mass ratio] 21.1 mg/mg High 10-20 [facility] CBC-Complete Blood Cnt No Di ffon 08-04-2024 Erythrocyte distribution width (RBC) [Ratio] 13.0 % Normal 11.6-14.6 [facility] Comment on above: Order Comment: 215.2 Performed By: #### L 100.0500, L500.4050 ####[facility] [address] [place], [address] Hematocrit (Bld) [Volume fraction] 41.3 % Normal 40-54 [facility] Comment on above: Order Comment: 215.2 Performed By: #### L 100.0500, L500.4050 ####[facility] [address] [place], [address] Hemoglobin (Bld) [Mass/Vol] 12.9 g/dL Low 13.0-16. 5 [facility] Comment on above: Order Comment: 215.2 Performed By: #### L 100.0500, L500.4050 ####[facility] [address] [place], [address] MCH (RBC) [Entitic mass] 27.3 pg Normal 27.0-32.0 [facility] Comment on above: Order Comment: 215.2 Performed By: #### L 100.0500, L500.4050 ####[facility] [address] [place], [address] MCHC (RBC) [Mass/Vol] 31.2 g/dL Low 32-36 [facility] Comment on above: Order Comment: 215.2 Performed By: #### L 100.0500, L500.4050 ####[facility] [address] [place], [address] MCV (RBC) [Entitic vol] 87.3 fL Normal 80-94 [facility] Comment on above: Order Comment: 215.2 Performed By: #### L 100.0500, L500.4050 ####[facility] [address] [place], [address] Platelet mean volume (Bld) [Entitic vol] 9.3 fL Normal 6.2-12.0 [facility] Comment on above: Order Comment: 215.2 Performed By: #### L 100.0500, L500.4050 ####[facility] [address] [place], [address] Platelets (Bld) [#/Vol] 295 10*3/uL Normal 150-450 [facility] Comment on above: Order Comment: 215.2 Performed By: #### L 100.0500, L500.4050 ####[facility] [address] [place], [address] RBC (Bld) [#/Vol] 4.73 10*6/uL Normal 4.6-6.2 [facility] Comment on above: Order Comment: 215.2 Performed By: #### L 100.0500, L500.4050 ####[facility] [address] [place], [address] RDW SD 41.8 fl Normal 35.1-43.9 [facility] Comment on above: Order Comment: 215.2 Performed By: #### L 100.0500, L500.4050 ####[facility] [address] [place], [address] WBC (Bld) [#/Vol] 9.3 10*3/uL Normal 4.4-11.0 [facility] Comment on above: Order Comment: 215.2 Performed By: #### L 100.0500, L500.4050 ####[facility] [address] [place], [address] Carbon dioxide measurementOr dered By: Walter Becker on 08-04-2024 CO2 [Moles/Vol] 29.0 mmol/L 21.0-32.0 [facility] Chloride measurementOrdered By: Walter Becker on 08-04-2024 Chloride [Moles/Vol] 104 mmol/L 98-107 [facility] Comprehensive Metabolic Prof ilon 08-04-2024 Albumin [Mass/Vol] 3.5 g/dL Normal 3.2-5.0 [facility] Comment on above: Order Comment: 215.2 Performed By: #### L 100.0500, L500.4050 ####[facility] [address] [place], [address] Albumin/Globulin [Mass ratio] 1.0 {ratio} Normal 0.9-2.4 [facility] Comment on above: Order Comment: 215.2 Performed By: #### L 100.0500, L500.4050 ####[facility] [address] [place], [address] ALK P 125 U/L High 45-117 [facility] Comment on above: Order Comment: 215.2 Performed By: #### L 100.0500, L500.4050 ####[facility] [address] [place], [address] ALT [Catalytic activity/Vol] 19 U/L Normal 16-61 [facility] Comment on above: Order Comment: 215.2 Performed By: #### L 100.0500, L500.4050 ####[facility] [address] [place], [address] AST [Catalytic activity/Vol] 12 U/L Low 15-37 [facility] Comment on above: Order Comment: 215.2 Performed By: #### L 100.0500, L500.4050 ####[facility] [address] [place], [address] Bilirubin [Mass/Vol] 0.50 mg/dL Normal 0.20-1.00 [facility] Comment on above: Order Comment: 215.2 Result Comment: For patients on eltrombopag therapy, use of Dim[place] TBIL is not recommended. Performed By: #### L 100.0500, L500.4050 ####[facility] [address] [place], [address] BUN/CRE 21.1 RATIO High 10-20 [facility] Comment on above: Order Comment: 215.2 Performed By: #### L 100.0500, L500.4050 ####[facility] [address] [place], [address] CA,Total 9.7 mg/dL Normal 8.5-10.1 [facility] Comment on above: Order Comment: 215.2 Performed By: #### L 100.0500, L500.4050 ####[facility] [address] [place], [address] Chloride [Moles/Vol] 104 mmol/L Normal 98-107 [facility] Comment on above: Order Comment: 215.2 Performed By: #### L 100.0500, L500.4050 ####[facility] [address] [place], [address] CO2 [Moles/Vol] 29.0 mmol/L Normal 21.0-32.0 [facility] Comment on above: Order Comment: 215.2 Performed By: #### L 100.0500, L500.4050 ####[facility] [address] [place], [address] Creatinine [Mass/Vol] 1.28 mg/dL Normal 0.70-1.30 [facility] Comment on above: Order Comment: 215.2 Result Comment: The validity of the calculated GFR GFRAA in patients over70 years has not been determined. Clinical correlation isessential. Performed By: #### L 100.0500, L500.4050 ####[facility] [address] [place], [address] EST GFR - AA 70 mL/min Normal >60 [facility] Comment on above: Order Comment: 215.2 Result Comment: Afri can [place] GFR Calc Performed By: #### L 100.0500, L500.4050 ####[facility] [address] [place], [address] GAP 7 Normal 5-15 [facility] Comment on above: Order Comment: 215.2 Performed By: #### L 100.0500, L500.4050 ####[facility] [address] [place], [address] GFR/1.73 sq M.predicted among non-blacks MDRD (S/P/Bld) [Vol rate/Area] 58 mL/min/{1.73_m2} Low >60 [facility] Comment on above: Order Comment: 215.2 Result Comment: Non- GFR Calc Performed By: #### L 100.0500, L500.4050 ####[facility] [address] [place], [address] Globulin (S) [Mass/Vol] 3.5 g/dL Normal 2.2-4.2 [facility] Comment on above: Order Comment: 215.2 Performed By: #### L 100.0500, L500.4050 ####[facility] [address] [place], [address] Glucose [Mass/Vol] 128 mg/dL High 74-106 [facility] Comment on above: Order Comment: 215.2 Result Comment: Fast ing Glucose result greater than or equal to 126 mg/dLsuggests DIABETES MELLITUS per A.D.A. criteria. Performed By: #### L 100.0500, L500.4050 ####[facility] [address] [place], [address] Potassium [Moles/Vol] 3.9 mmol/L Normal 3.5-5.1 [facility] Comment on above: Order Comment: 215.2 Performed By: #### L 100.0500, L500.4050 ####[facility] [address] [place], [address] Sodium [Moles/Vol] 140 mmol/L Normal 136-145 [facility] Comment on above: Order Comment: 215.2 Performed By: #### L 100.0500, L500.4050 ####[facility] [address] [place], [address] T PROT 7.0 g/dL Normal 6.4-8.2 [facility] Comment on above: Order Comment: 215.2 Performed By: #### L 100.0500, L500.4050 ####[facility] [address] [place], [address] Urea nitrogen [Mass/Vol] 27 mg/dL High 7-18 [facility] Comment on above: Order Comment: 215.2 Performed By: #### L 100.0500, L500.4050 ####[facility] [address] [place], [address] Epithelial cells.squamous LM Ql (Urine sed)Ordered By: Walter Becker on 08-04-2024 Epithelial cells.squamous LM.HPF (Urine sed) [#/Area] 0 /[HPF] 0-5 [facility] Erythrocyte distribution wid th (RBC) [Ratio]Ordered By: Walter Becker on 08-04-2024 Erythrocyte distribution width (RBC) [Entitic vol] 41.8 fL 35.1-43.9 [facility] Erythrocyte distribution wid th ratioOrdered By: Walter Becker on 08-04-2024 Erythrocyte distribution width (RBC) [Ratio] 13.0 % 11.6-14.6 [facility] Estimated glomerular filtrat ion rate (GFR) AmericanOrdered By: Walter Becker on 08-04-2024 Estimated GFR (MDRD) Amer 70 mL/min >60 [facility] Comment on above: GFR Calc Glomerular filtration rate ( GFR) estimationOrdered By: Walter Becker on 08-04-2024 Estimated GFR (MDRD) Non-Af Amer 58 mL/min Low >60 [facility] Comment on above: Non- GFR Calc Glucose Ql (U)Ordered By: Horner on 08-04-2024 Urine Glucose (UA) Normal mg/dl Normal [facility] Glucose measurementOrdered B y: Walter Becker on 08-04-2024 Glucose [Mass/Vol] 128 mg/dL High 74-106 [facility] Comment on above: Fasting Glucose resu lt greater than or equal to 126 mg/dL suggests DIABETES MELLITUS per A.D.A. criteria. Hematocrit Auto (Bld) [Volum e fraction]Ordered By: Walter Becker on 08-04-2024 Hematocrit (Bld) [Volume fraction] 41.3 % 40-54 [facility] Hemoglobin measurementOrdere d By: Walter Becker on 08-04-2024 Hemoglobin (Bld) [Mass/Vol] 12.9 g/dL Low 13.0-16. 5 [facility] Ketones Test strip Ql (U)Ord ered By: Walter Becker on 08-04-2024 Ketones Ql (U) Negative Negative [facility] Laboratory - Chemistry and C hemistry - challengeOrdered By: Walter Becker on 08-04-2024 AST [Catalytic activity/Vol] 12 U/L Low 15-37 [facility] MCV (mean corpuscular volume ) determinationOrdered By: Walter Becker on 08-04-2024 MCV (RBC) [Entitic vol] 87.3 fL 80-94 [facility] Mean corpuscular hemoglobin (MCH) determinationOrdered By: Walter Becker on 08-04-2024 MCH (RBC) [Entitic mass] 27.3 pg 27.0-32.0 [facility] Mean corpuscular hemoglobin concentration (MCHC) determinationOrdered By: Walter Becker on 08-04-2024 MCHC (RBC) [Mass/Vol] 31.2 g/dL Low 32-36 [facility] Mean platelet volume determi nationOrdered By: Walter Becker on 08-04-2024 Platelet mean volume (Bld) [Entitic vol] 9.3 fL 6.2-12.0 [facility] Microscopic analysis of urin e for red blood cells (RBC)Ordered By: Walter Becker on 08-04-2024 Urine RBC 0 SEEN /hpf 0-5 [facility] Mucus LM Ql (Urine sed)Order ed By: Walter Becker on 08-04-2024 Mucus Ql (Urine sed) 0 SEEN /hpf [facility] Nitrite Test strip Ql (U)Ord ered By: Walter Becker on 08-04-2024 Nitrite Ql (U) Negative Negative [facility] Platelet countOrdered By: Horner on 08-04-2024 Platelets (Bld) [#/Vol] 295 10*3/uL 150-450 [facility] Potassium measurementOrdered By: Walter Becker on 08-04-2024 Potassium [Moles/Vol] 3.9 mmol/L 3.5-5.1 [facility] Protein Test strip Ql (U)Ord ered By: Walter Becker on 08-04-2024 Protein Ql (U) Negative Negative [facility] RBC Auto (Bld) [#/Vol]Ordere d By: Walter Becker on 08-04-2024 RBC (Bld) [#/Vol] 4.73 10*6/uL 4.6-6.2 [facility] Serum anion gap measurementO rdered By: Walter Becker on 08-04-2024 Anion gap [Moles/Vol] 7 mmol/L 5-15 [facility] Serum globulin measurementOr dered By: Walter Becker on 08-04-2024 Globulin (S) [Mass/Vol] 3.5 g/dL 2.2-4.2 [facility] Serum or plasma alanine davis otransferase (ALT) measurementOrdered By: Walter Becker on 08-04-2024 ALT [Catalytic activity/Vol] 19 U/L 16-61 [facility] Serum or plasma albumin antoine urement (mass/volume)Ordered By: Walter Becker on 08-04-2024 Albumin [Mass/Vol] 3.5 g/dL 3.2-5.0 [facility] Serum or plasma alkaline marilin sphatase measurementOrdered By: Walter Becker on 08-04-2024 ALP [Catalytic activity/Vol] 125 U/L High 45-117 [facility] Serum or plasma calcium antoine urement (mass/volume)Ordered By: Walter Becker on 08-04-2024 Calcium [Mass/Vol] 9.7 mg/dL 8.5-10.1 [facility] Serum or plasma creatinine m easurement (mass/volume)Ordered By: Walter Becker on 08-04-2024 Creatinine [Mass/Vol] 1.28 mg/dL 0.70-1.30 [facility] Comment on above: The validity of the calculated GFR & GFRAA in patients over 70 years has not been determined. Clinical correlation is essential. Serum or plasma urea nitroge n measurement (mass/volume)Ordered By: Walter Becker on 08-04-2024 Urea nitrogen [Mass/Vol] 27 mg/dL High 7-18 [facility] Sodium levelOrdered By: Walter Becker on 08-04-2024 Sodium [Moles/Vol] 140 mmol/L 136-145 [facility] Total proteinOrdered By: Crystal Becker on 08-04-2024 Protein [Mass/Vol] 7.0 g/dL 6.4-8.2 [facility] Urinalysis, Completeon 08-04 WBC 0-5 SEEN Normal 0-5 [facility] Comment on above: Order Comment: SCCAT HETER SPECIMEN Performed By: #### L 400.0001, ####[facility] [address] [place], [address] BACTERIA 0 SEEN Normal None Seen [facility] Comment on above: Order Comment: SCCAT HETER SPECIMEN Performed By: #### L 400.0001, 0 ####[facility] [address] [place], [address] EPI,SQUAMOUS 0 SEEN Normal 0-5 [facility] Comment on above: Order Comment: SCCAT HETER SPECIMEN Performed By: #### L 400.0001, M100.2200 ####[facility] [address] [place], [address] Mucus Ql (Urine sed) 0 SEEN Normal [facility] Comment on above: Order Comment: SCCAT HETER SPECIMEN Performed By: #### L 400.0001, M100.0 ####[facility] [address] [place], [address] RBC 0 SEEN Normal 0-5 [facility] Comment on above: Order Comment: SCCAT HETER SPECIMEN Performed By: #### L 400.0001, M100.0 ####[facility] [address] [place], [address] Urine blood detectionOrdered By: Walter Becker on 08-04-2024 Urine Occult Blood Negative Negative [facility] Urine clarityOrdered By: Crystal Becker on 08-04-2024 Clarity (U) Clear Clear [facility] Urine color determinationOrd ered By: Walter Becker on 08-04-2024 Color (U) Yellow Yellow [facility] Urine cultureOrdered By: Crystal Becker on 08-04-2024 Bacteria identified Cx Nom (U) Culture exhibits no growth. [facility] Urine leukocyte esterase det ection by dipstickOrdered By: Walter Becker on 08-04-2024 Leukocyte esterase Test strip Ql (U) Negative Negative [facility] Urine pHOrdered By: Walter floyd on 08-04-2024 pH (U) 6.0 [pH] 5.0 - 8.0 [facility] Urine sediment bacteria coun t by microscopy (number/high power field)Ordered By: Walter Becker on 08-04-2024 Bacteria LM.HPF (Urine sed) [#/Area] 0 /[HPF] None Seen [facility] Urine specific gravity measu rementOrdered By: Walter Becker on 08-04-2024 Specific gravity (U) [Rel density] 1.010 1.002-1.03 0 [facility] Urobilinogen Ql (U)Ordered B y: Walter Becker on 08-04-2024 Urine Urobilinogen Normal mg/dl Normal [facility] White blood cell (WBC) count Ordered By: Walter Becker on 08-04-2024 WBC (Bld) [#/Vol] 9.3 10*3/uL 4.4-11.0 [facility] White blood cell countOrdere d By: Walter Becker on 08-04-2024 Urine WBC 0-5 SEEN /hpf 0-5 [facility] Albumin to globulin ratioOrd ered By: Walter Becker on 07-27-2024 Albumin/Globulin [Mass ratio] 1.1 {ratio} 0.9-2.4 [facility] Bilirubin, totalOrdered By: Walter Beckre on 07-27-2024 Bilirubin [Mass/Vol] 0.60 mg/dL 0.20-1.00 [facility] Comment on above: For patients on eltr ombopag therapy, use of Dim[place] TBIL is not recommended. Blood urea nitrogen (BUN)/cr eatinine ratioOrdered By: Walter Becker on 07-27-2024 Urea nitrogen/Creatinine [Mass ratio] 20.0 mg/mg 10-20 [facility] CBC-Complete Blood Cnt No Di ffon 07-27-2024 Erythrocyte distribution width (RBC) [Ratio] 13.5 % Normal 11.6-14.6 [facility] Comment on above: Order Comment: 215-2 Performed By: #### L 100.0500, L500.4050 ####[facility] [address] [place], [address] Hematocrit (Bld) [Volume fraction] 35.7 % Low 40-54 [facility] Comment on above: Order Comment: 215-2 Performed By: #### L 100.0500, L500.4050 ####[facility] [address] [place], [address] Hemoglobin (Bld) [Mass/Vol] 11.5 g/dL Low 13.0-16. 5 [facility] Comment on above: Order Comment: 215-2 Performed By: #### L 100.0500, L500.4050 ####[facility] [address] [place], [address] MCH (RBC) [Entitic mass] 28.2 pg Normal 27.0-32.0 [facility] Comment on above: Order Comment: 215-2 Performed By: #### L 100.0500, L500.4050 ####[facility] [address] [place], [address] MCHC (RBC) [Mass/Vol] 32.2 g/dL Normal 32-36 [facility] Comment on above: Order Comment: 215-2 Performed By: #### L 100.0500, L500.4050 ####[facility] [address] [place], [address] MCV (RBC) [Entitic vol] 87.5 fL Normal 80-94 [facility] Comment on above: Order Comment: 215-2 Performed By: #### L 100.0500, L500.4050 ####[facility] [address] [place], [address] Platelet mean volume (Bld) [Entitic vol] 9.6 fL Normal 6.2-12.0 [facility] Comment on above: Order Comment: 215-2 Performed By: #### L 100.0500, L500.4050 ####[facility] [address] [place], [address] Platelets (Bld) [#/Vol] 192 10*3/uL Normal 150-450 [facility] Comment on above: Order Comment: 215-2 Performed By: #### L 100.0500, L500.4050 ####[facility] [address] [place], [address] RBC (Bld) [#/Vol] 4.08 10*6/uL Low 4.6-6.2 [facility] Comment on above: Order Comment: 215-2 Performed By: #### L 100.0500, [id number] ####[facility] [address] [place], [address] RDW SD 43.1 fl Normal 35.1-43.9 [facility] Comment on above: Order Comment: 215-2 Performed By: #### L 100.0500, L500.4050 ####[facility] [address] [place], [address] WBC (Bld) [#/Vol] 7.2 10*3/uL Normal 4.4-11.0 [facility] Comment on above: Order Comment: 215-2 Performed By: #### L 100.0500, [id number] ####[facility] [address] [place], [address] Carbon dioxide measurementOr dered By: Walter Becker on 07-27-2024 CO2 [Moles/Vol] 29.0 mmol/L 21.0-32.0 [facility] Chloride measurementOrdered By: Walter Becker on 07-27-2024 Chloride [Moles/Vol] 105 mmol/L 98-107 [facility] Comprehensive Metabolic Prof ilon 07-27-2024 Albumin [Mass/Vol] 3.1 g/dL Low 3.2-5.0 [facility] Comment on above: Order Comment: 215-2 Performed By: #### L 100.0500, L500.4050 ####[facility] [address] [place], [address] Albumin/Globulin [Mass ratio] 1.1 {ratio} Normal 0.9-2.4 [facility] Comment on above: Order Comment: 215-2 Performed By: #### L 100.0500, L500.4050 ####[facility] [address] [place], [address] ALK P 124 U/L High 45-117 [facility] Comment on above: Order Comment: 215-2 Performed By: #### L 100.0500, L500.4050 ####[facility] [address] [place], [address] ALT [Catalytic activity/Vol] 20 U/L Normal 16-61 [facility] Comment on above: Order Comment: 215-2 Performed By: #### L 100.0500, L500.4050 ####[facility] [address] [place], [address] AST [Catalytic activity/Vol] 10 U/L Low 15-37 [facility] Comment on above: Order Comment: 215-2 Performed By: #### L 100.0500, L500.4050 ####[facility] [address] [place], [address] Bilirubin [Mass/Vol] 0.60 mg/dL Normal 0.20-1.00 [facility] Comment on above: Order Comment: 215-2 Result Comment: For patients on eltrombopag therapy, use of Dim[place] TBIL is not recommended. Performed By: #### L 100.0500, L500.4050 ####[facility] [address] [place], [address] BUN/CRE 20.0 RATIO Normal 10-20 [facility] Comment on above: Order Comment: 215-2 Performed By: #### L 100.0500, L500.4050 ####[facility] [address] [place], [address] CA,Total 8.9 mg/dL Normal 8.5-10.1 [facility] Comment on above: Order Comment: 215-2 Performed By: #### L 100.0500, L500.4050 ####[facility] [address] [place], [address] Chloride [Moles/Vol] 105 mmol/L Normal 98-107 [facility] Comment on above: Order Comment: 215-2 Performed By: #### L 100.0500, L500.4050 ####[facility] [address] [place], [address] CO2 [Moles/Vol] 29.0 mmol/L Normal 21.0-32.0 [facility] Comment on above: Order Comment: 215-2 Performed By: #### L 100.0500, L500.4050 ####[facility] [address] [place], [address] Creatinine [Mass/Vol] 1.10 mg/dL Normal 0.70-1.30 [facility] Comment on above: Order Comment: 215-2 Result Comment: The validity of the calculated GFR GFRAA in patients over70 years has not been determined. Clinical correlation isessential. Performed By: #### L 100.0500, L500.4050 ####[facility] [address] [place], [address] EST GFR - AA 84 mL/min Normal >60 [facility] Comment on above: Order Comment: 215-2 Result Comment: Afri can [place] GFR Calc Performed By: #### L 100.0500, L500.4050 ####[facility] [address] [place], [address] GAP 4 Low 5-15 [facility] Comment on above: Order Comment: 215-2 Performed By: #### L 100.0500, L500.4050 ####[facility] [address] [place], [address] GFR/1.73 sq M.predicted among non-blacks MDRD (S/P/Bld) [Vol rate/Area] 69 mL/min/{1.73_m2} Normal >60 [facility] Comment on above: Order Comment: 215-2 Result Comment: Non- GFR Calc Performed By: #### L 100.0500, L500.4050 ####[facility] [address] [place], [address] Globulin (S) [Mass/Vol] 2.9 g/dL Normal 2.2-4.2 [facility] Comment on above: Order Comment: 215-2 Performed By: #### L 100.0500, L500.4050 ####[facility] [address] [place], [address] Glucose [Mass/Vol] 127 mg/dL High 74-106 [facility] Comment on above: Order Comment: 215-2 Result Comment: Fast ing Glucose result greater than or equal to 126 mg/dLsuggests DIABETES MELLITUS per A.D.A. criteria. Performed By: #### L 100.0500, L500.4050 ####[facility] [address] [place], [address] Potassium [Moles/Vol] 4.1 mmol/L Normal 3.5-5.1 [facility] Comment on above: Order Comment: 215-2 Performed By: #### L 100.0500, L500.4050 ####[facility] [address] [place], [address] Sodium [Moles/Vol] 137 mmol/L Normal 136-145 [facility] Comment on above: Order Comment: 215-2 Performed By: #### L 100.0500, L500.4050 ####[facility] [address] [place], [address] T PROT 6.0 g/dL Low 6.4-8.2 [facility] Comment on above: Order Comment: 215-2 Performed By: #### L 100.0500, L500.4050 ####[facility] [address] [place], [place], [address] Urea nitrogen [Mass/Vol] 22 mg/dL High 7-18 [facility] Comment on above: Order Comment: 215-2 Performed By: #### L 100.0500, L500.4050 ####[facility] [address] [place], [place], [address] Erythrocyte distribution wid th (RBC) [Ratio]Ordered By: Walter Becker on 07-27-2024 Erythrocyte distribution width (RBC) [Entitic vol] 43.1 fL 35.1-43.9 [facility] Erythrocyte distribution wid th ratioOrdered By: Walter Becker on 07-27-2024 Erythrocyte distribution width (RBC) [Ratio] 13.5 % 11.6-14.6 [facility] Estimated glomerular filtrat ion rate (GFR) AmericanOrdered By: Walter Becker on 07-27-2024 Estimated GFR (MDRD) Amer 84 mL/min >60 [facility] Comment on above: GFR Calc Glomerular filtration rate ( GFR) estimationOrdered By: Walter Becker on 07-27-2024 Estimated GFR (MDRD) Non-Af Amer 69 mL/min >60 [facility] Comment on above: Non- GFR Calc Glucose measurementOrdered B y: Walter Becker on 07-27-2024 Glucose [Mass/Vol] 127 mg/dL High 74-106 [facility] Comment on above: Fasting Glucose resu lt greater than or equal to 126 mg/dL suggests DIABETES MELLITUS per A.D.A. criteria. Hematocrit Auto (Bld) [Volum e fraction]Ordered By: Walter Becker on 07-27-2024 Hematocrit (Bld) [Volume fraction] 35.7 % Low 40-54 [facility] Hemoglobin measurementOrdere d By: Walter Becker on 07-27-2024 Hemoglobin (Bld) [Mass/Vol] 11.5 g/dL Low 13.0-16. 5 [facility] Laboratory - Chemistry and C hemistry - challengeOrdered By: Walter Becker on 07-27-2024 AST [Catalytic activity/Vol] 10 U/L Low 15-37 [facility] MCV (mean corpuscular volume ) determinationOrdered By: Walter Becker on 07-27-2024 MCV (RBC) [Entitic vol] 87.5 fL 80-94 [facility] Mean corpuscular hemoglobin (MCH) determinationOrdered By: Walter eBcker on 07-27-2024 MCH (RBC) [Entitic mass] 28.2 pg 27.0-32.0 [facility] Mean corpuscular hemoglobin concentration (MCHC) determinationOrdered By: Walter Becker on 07-27-2024 MCHC (RBC) [Mass/Vol] 32.2 g/dL 32-36 [facility] Mean platelet volume determi nationOrdered By: Walter Becker on 07-27-2024 Platelet mean volume (Bld) [Entitic vol] 9.6 fL 6.2-12.0 [facility] Platelet countOrdered By: Horner on 07-27-2024 Platelets (Bld) [#/Vol] 192 10*3/uL 150-450 [facility] Potassium measurementOrdered By: Walter Becker on 07-27-2024 Potassium [Moles/Vol] 4.1 mmol/L 3.5-5.1 [facility] RBC Auto (Bld) [#/Vol]Ordere d By: Walter Becker on 07-27-2024 RBC (Bld) [#/Vol] 4.08 10*6/uL Low 4.6-6.2 [facility] Serum anion gap measurementO rdered By: Walter Becker on 07-27-2024 Anion gap [Moles/Vol] 4 mmol/L Low 5-15 [facility] Serum globulin measurementOr dered By: Walter Becker on 07-27-2024 Globulin (S) [Mass/Vol] 2.9 g/dL 2.2-4.2 [facility] Serum or plasma alanine davis otransferase (ALT) measurementOrdered By: Walter Becker on 07-27-2024 ALT [Catalytic activity/Vol] 20 U/L 16-61 [facility] Serum or plasma albumin antoine urement (mass/volume)Ordered By: Walter Becker on 07-27-2024 Albumin [Mass/Vol] 3.1 g/dL Low 3.2-5.0 [facility] Serum or plasma alkaline marilin sphatase measurementOrdered By: Walter Becker on 07-27-2024 ALP [Catalytic activity/Vol] 124 U/L High 45-117 [facility] Serum or plasma calcium antoine urement (mass/volume)Ordered By: Walter Becker on 07-27-2024 Calcium [Mass/Vol] 8.9 mg/dL 8.5-10.1 [facility] Serum or plasma creatinine m easurement (mass/volume)Ordered By: Walter Becker on 07-27-2024 Creatinine [Mass/Vol] 1.10 mg/dL 0.70-1.30 [facility] Comment on above: The validity of the calculated GFR & GFRAA in patients over 70 years has not been determined. Clinical correlation is essential. Serum or plasma urea nitroge n measurement (mass/volume)Ordered By: Walter Becker on 07-27-2024 Urea nitrogen [Mass/Vol] 22 mg/dL High 7-18 [facility] Sodium levelOrdered By: Walter Becker on 07-27-2024 Sodium [Moles/Vol] 137 mmol/L 136-145 [facility] Total proteinOrdered By: Crystal Becker on 07-27-2024 Protein [Mass/Vol] 6.0 g/dL Low 6.4-8.2 [facility] White blood cell (WBC) count Ordered By: Walter Becker on 07-27-2024 WBC (Bld) [#/Vol] 7.2 10*3/uL 4.4-11.0 [facility] Albumin to globulin ratioOrd ered By: Walter Becker on 07-07-2024 Albumin/Globulin [Mass ratio] 1.0 {ratio} 0.9-2.4 [facility] Bilirubin, totalOrdered By: Walter Becker on 07-07-2024 Bilirubin [Mass/Vol] 0.40 mg/dL 0.20-1.00 [facility] Comment on above: For patients on eltr ombopag therapy, use of Dim[place] TBIL is not recommended. Blood urea nitrogen (BUN)/cr eatinine ratioOrdered By: Walter Becker on 07-07-2024 Urea nitrogen/Creatinine [Mass ratio] 23.6 mg/mg High 10-20 [facility] CBC-Complete Blood Cnt No Di ffon 07-07-2024 Erythrocyte distribution width (RBC) [Ratio] 13.3 % Normal 11.6-14.6 [facility] Comment on above: Order Comment: 215.2 Performed By: #### L 100.0500, L500.4050, L501.9985 ####[facility] [address] [place], [address] Hematocrit (Bld) [Volume fraction] 38.1 % Low 40-54 [facility] Comment on above: Order Comment: 215.2 Performed By: #### L 100.0500, L500.4050, L501.9985 ####[facility] [address] [place], [address] Hemoglobin (Bld) [Mass/Vol] 12.3 g/dL Low 13.0-16. 5 [facility] Comment on above: Order Comment: 215.2 Performed By: #### L 100.0500, L500.4050, L501.9985 ####[facility] [address] [place], [address] MCH (RBC) [Entitic mass] 28.3 pg Normal 27.0-32.0 [facility] Comment on above: Order Comment: 215.2 Performed By: #### L 100.0500, L500.4050, L501.9985 ####[facility] [address] [place], [address] MCHC (RBC) [Mass/Vol] 32.3 g/dL Normal 32-36 [facility] Comment on above: Order Comment: 215.2 Performed By: #### L 100.0500, L500.4050, L501.9985 ####[facility] [address] [place], [address] MCV (RBC) [Entitic vol] 87.6 fL Normal 80-94 [facility] Comment on above: Order Comment: 215.2 Performed By: #### L 100.0500, L500.4050, L501.9985 ####[facility] [address] [place], [address] Platelet mean volume (Bld) [Entitic vol] 9.1 fL Normal 6.2-12.0 [facility] Comment on above: Order Comment: 215.2 Performed By: #### L 100.0500, L500.4050, L501.9985 ####[facility] [address] [place], [address] Platelets (Bld) [#/Vol] 211 10*3/uL Normal 150-450 [facility] Comment on above: Order Comment: 215.2 Performed By: #### L 100.0500, L500.4050, L501.9985 ####[facility] [address] [place], [address] RBC (Bld) [#/Vol] 4.35 10*6/uL Low 4.6-6.2 [facility] Comment on above: Order Comment: 215.2 Performed By: #### L 100.0500, L500.4050, [id number] ####[facility] [address] [place], [address] RDW SD 42.5 fl Normal 35.1-43.9 [facility] Comment on above: Order Comment: 215.2 Performed By: #### L 100.0500, L500.4050, [id number] ####[facility] [address] [place], [address] WBC (Bld) [#/Vol] 7.6 10*3/uL Normal 4.4-11.0 [facility] Comment on above: Order Comment: 215.2 Performed By: #### L 100.0500, L500.4050, [id number] ####[facility] [address] [place], [address] Carbon dioxide measurementOr dered By: Walter Becker on 07-07-2024 CO2 [Moles/Vol] 32.0 mmol/L 21.0-32.0 [facility] Chloride measurementOrdered By: Walter Becker on 07-07-2024 Chloride [Moles/Vol] 107 mmol/L 98-107 [facility] Comprehensive Metabolic Prof ilon 07-07-2024 Albumin [Mass/Vol] 2.9 g/dL Low 3.2-5.0 [facility] Comment on above: Order Comment: 215.2 Performed By: #### L 100.0500, L500.4050, [id number] ####[facility] [address] [place], [address] Albumin/Globulin [Mass ratio] 1.0 {ratio} Normal 0.9-2.4 [facility] Comment on above: Order Comment: 215.2 Performed By: #### L 100.0500, L500.4050, [id number] ####[facility] [address] [place], [address] ALK P 121 U/L High 45-117 [facility] Comment on above: Order Comment: 215.2 Performed By: #### L 100.0500, L500.4050, [id number] ####[facility] [address] [place], [address] ALT [Catalytic activity/Vol] 20 U/L Normal 16-61 [facility] Comment on above: Order Comment: 215.2 Performed By: #### L 100.0500, L500.4050, [id number] ####[facility] [address] [place], [address] AST [Catalytic activity/Vol] 10 U/L Low 15-37 [facility] Comment on above: Order Comment: 215.2 Performed By: #### L 100.0500, L500.4050, [id number] ####[facility] [address] [place], [address] Bilirubin [Mass/Vol] 0.40 mg/dL Normal 0.20-1.00 [facility] Comment on above: Order Comment: 215.2 Result Comment: For patients on eltrombopag therapy, use of Dimension [place] TBIL is not recommended. Performed By: #### L 100.0500, L500.4050, [id number] ####[facility] [address] [place], [address] BUN/CRE 23.6 RATIO High 10-20 [facility] Comment on above: Order Comment: 215.2 Performed By: #### L 100.0500, L500.4050, [id number] ####[facility] [address] [place], [address] CA,Total 9.1 mg/dL Normal 8.5-10.1 [facility] Comment on above: Order Comment: 215.2 Performed By: #### L 100.0500, L500.4050, [id number] ####[facility] [address] [place], [address] Chloride [Moles/Vol] 107 mmol/L Normal 98-107 [facility] Comment on above: Order Comment: 215.2 Performed By: #### L 100.0500, L500.4050, [id number] ####[facility] [address] [place], [address] CO2 [Moles/Vol] 32.0 mmol/L Normal 21.0-32.0 [facility] Comment on above: Order Comment: 215.2 Performed By: #### L 100.0500, L500.4050, [id number] ####[facility] [address] [place], [address] Creatinine [Mass/Vol] 1.06 mg/dL Normal 0.70-1.30 [facility] Comment on above: Order Comment: 215.2 Result Comment: The validity of the calculated GFR GFRAA in patients over70 years has not been determined. Clinical correlation isessential. Performed By: #### L 100.0500, L500.4050, [id number] ####[facility] [address] [place], [address] EST GFR - AA 87 mL/min Normal >60 [facility] Comment on above: Order Comment: 215.2 Result Comment: Afri can Nicaraguan GFR Calc Performed By: #### L 100.0500, L500.4050, [id number] ####[facility] [address] [place], [address] GAP 3 Low 5-15 [facility] Comment on above: Order Comment: 215.2 Performed By: #### L 100.0500, L500.4050, [id number] ####[facility] [address] [place], [address] GFR/1.73 sq M.predicted among non-blacks MDRD (S/P/Bld) [Vol rate/Area] 72 mL/min/{1.73_m2} Normal >60 [facility] Comment on above: Order Comment: 215.2 Result Comment: Non- GFR Calc Performed By: #### L 100.0500, L500.4050, [id number] ####[facility] [address] [place], [address] Globulin (S) [Mass/Vol] 3.0 g/dL Normal 2.2-4.2 [facility] Comment on above: Order Comment: 215.2 Performed By: #### L 100.0500, L500.4050, [id number] ####[facility] [address] [place], [address] Glucose [Mass/Vol] 130 mg/dL High 74-106 [facility] Comment on above: Order Comment: 215.2 Result Comment: Fast ing Glucose result greater than or equal to 126 mg/dLsuggests DIABETES MELLITUS per A.D.A. criteria. Performed By: #### L 100.0500, L500.4050, [id number] ####[facility] [address] [place], [address] Potassium [Moles/Vol] 3.9 mmol/L Normal 3.5-5.1 [facility] Comment on above: Order Comment: 215.2 Performed By: #### L 100.0500, L500.4050, [id number] ####[facility] [address] [place], [address] Sodium [Moles/Vol] 141 mmol/L Normal 136-145 [facility] Comment on above: Order Comment: 215.2 Performed By: #### L 100.0500, L500.4050, [id number] ####[facility] [address] [place], [address] T PROT 5.9 g/dL Low 6.4-8.2 [facility] Comment on above: Order Comment: 215.2 Performed By: #### L 100.0500, L500.4050, [id number] ####[facility] [address] [place], [address] Urea nitrogen [Mass/Vol] 25 mg/dL High 7-18 [facility] Comment on above: Order Comment: 215.2 Performed By: #### L 100.0500, L500.4050, [id number] ####[facility] [address] [place], [address] Erythrocyte distribution wid th (RBC) [Ratio]Ordered By: Walter Becker on 07-07-2024 Erythrocyte distribution width (RBC) [Entitic vol] 42.5 fL 35.1-43.9 [facility] Erythrocyte distribution wid th ratioOrdered By: Walter Becker on 07-07-2024 Erythrocyte distribution width (RBC) [Ratio] 13.3 % 11.6-14.6 [facility] Estimated glomerular filtrat ion rate (GFR) AmericanOrdered By: Walter Becker on 07-07-2024 Estimated GFR (MDRD) Amer 87 mL/min >60 [facility] Comment on above: GFR Calc Glomerular filtration rate ( GFR) estimationOrdered By: Walter Becker on 07-07-2024 Estimated GFR (MDRD) Non-Af Amer 72 mL/min >60 [facility] Comment on above: Non- GFR Calc Glucose measurementOrdered B y: Walter Becker on 07-07-2024 Glucose [Mass/Vol] 130 mg/dL High 74-106 [facility] Comment on above: Fasting Glucose resu lt greater than or equal to 126 mg/dL suggests DIABETES MELLITUS per A.D.A. criteria. Hematocrit Auto (Bld) [Volum e fraction]Ordered By: Walter Becker on 07-07-2024 Hematocrit (Bld) [Volume fraction] 38.1 % Low 40-54 [facility] Hemoglobin A1con 07-07-2024 HbA1c (Bld) [Mass fraction] 6.4 % High 3.8-5.6 [facility] Comment on above: Order Comment: 215.2 Result Comment: Norm al < 5.7 % Prediabetic 5.7 - 6.4 % Diabetic >or= 6.5 % Please note range changes. Performed By: #### L 100.0500, L500.1793, L501.9970 ####[facility] [address] [place], [place], [address] Hemoglobin A1c percentageOrd ered By: Walter Becker on 07-07-2024 HbA1c (Bld) [Mass fraction] 6.4 % High 3.8-5.6 [facility] Comment on above: Normal < 5.7 % Predi abetic 5.7 - 6.4 % Diabetic >or= 6.5 % Please note range changes. Hemoglobin measurementOrdere d By: Walter Becker on 07-07-2024 Hemoglobin (Bld) [Mass/Vol] 12.3 g/dL Low 13.0-16. 5 [facility] Laboratory - Chemistry and C hemistry - challengeOrdered By: Walter Becker on 07-07-2024 AST [Catalytic activity/Vol] 10 U/L Low 15-37 [facility] MCV (mean corpuscular volume ) determinationOrdered By: Walter Becker on 07-07-2024 MCV (RBC) [Entitic vol] 87.6 fL 80-94 [facility] Mean corpuscular hemoglobin (MCH) determinationOrdered By: Walter Becker on 07-07-2024 MCH (RBC) [Entitic mass] 28.3 pg 27.0-32.0 [facility] Mean corpuscular hemoglobin concentration (MCHC) determinationOrdered By: Walter Becker on 07-07-2024 MCHC (RBC) [Mass/Vol] 32.3 g/dL 32-36 [facility] Mean platelet volume determi nationOrdered By: Walter Becker on 07-07-2024 Platelet mean volume (Bld) [Entitic vol] 9.1 fL 6.2-12.0 [facility] Platelet countOrdered By: Horner on 07-07-2024 Platelets (Bld) [#/Vol] 211 10*3/uL 150-450 [facility] Potassium measurementOrdered By: Walter Becker on 07-07-2024 Potassium [Moles/Vol] 3.9 mmol/L 3.5-5.1 [facility] RBC Auto (Bld) [#/Vol]Ordere d By: Walter Becker on 07-07-2024 RBC (Bld) [#/Vol] 4.35 10*6/uL Low 4.6-6.2 [facility] Serum anion gap measurementO rdered By: Walter Becker on 07-07-2024 Anion gap [Moles/Vol] 3 mmol/L Low 5-15 [facility] Serum globulin measurementOr dered By: Walter Becker on 07-07-2024 Globulin (S) [Mass/Vol] 3.0 g/dL 2.2-4.2 [facility] Serum or plasma alanine davis otransferase (ALT) measurementOrdered By: Walter Becker on 07-07-2024 ALT [Catalytic activity/Vol] 20 U/L 16-61 [facility] Serum or plasma albumin antoine urement (mass/volume)Ordered By: Walter Becker on 07-07-2024 Albumin [Mass/Vol] 2.9 g/dL Low 3.2-5.0 [facility] Serum or plasma alkaline marilin sphatase measurementOrdered By: Walter Becker on 07-07-2024 ALP [Catalytic activity/Vol] 121 U/L High 45-117 [facility] Serum or plasma calcium antoine urement (mass/volume)Ordered By: Walter Becker on 07-07-2024 Calcium [Mass/Vol] 9.1 mg/dL 8.5-10.1 [facility] Serum or plasma creatinine m easurement (mass/volume)Ordered By: Walter Becker on 07-07-2024 Creatinine [Mass/Vol] 1.06 mg/dL 0.70-1.30 [facility] Comment on above: The validity of the calculated GFR & GFRAA in patients over 70 years has not been determined. Clinical correlation is essential. Serum or plasma urea nitroge n measurement (mass/volume)Ordered By: Walter Becker on 07-07-2024 Urea nitrogen [Mass/Vol] 25 mg/dL High 7-18 [facility] Sodium levelOrdered By: Walter Becker on 07-07-2024 Sodium [Moles/Vol] 141 mmol/L 136-145 [facility] Total proteinOrdered By: Crystal Becker on 07-07-2024 Protein [Mass/Vol] 5.9 g/dL Low 6.4-8.2 [facility] White blood cell (WBC) count Ordered By: Walter Becker on 07-07-2024 WBC (Bld) [#/Vol] 7.6 10*3/uL 4.4-11.0 [facility] Vitamin D,25 Hydroxyon 07-02 Vitamin D 25-OH 58.5 ng/mL Normal [facility] Comment on above: Order Comment: 215.2 Result Comment: Laure min D 25(OH) Status Range Deficiency <20 ng/mL (50nmol/L) Insufficiency 20 - 30 ng/mL (50 - 75 nmol/L) Sufficiency 30 - 100 ng/mL (75 - 250 nmol/L) Toxicity >100 ng/mL (>250 nmol/L) Performed By: #### L 506.1000 ####[facility] [address] [place], [address] [id number] DOrdered By: Danny Becker on 07-01-2024 Vitamin D 25-Hydroxy 58.5 ng/mL [facility] Comment on above: Vitamin D 25(OH) Sta tus Range Deficiency <20 ng/mL (50nmol/L) Insufficiency 20 - 30 ng/mL (50 - 75 nmol/L) Sufficiency 30 - 100 ng/mL (75 - 250 nmol/L) Toxicity >100 ng/mL (>250 nmol/L) Bedside Glucoseon 06-01-2024 FINGERSTICK GLU 183 mg/dL High 74-106 [facility] Comment on above: Result Comment: JAZ BRANDON OF PATIENT CARE PER NURSING PROTOCOL Performed By: #### L 501.080 ####[facility] [address] [place], [address] Fluor Guidance for Spine Inj on 06-01-2024 Fluor Guidance for Spine Inj Normal [facility] Operative Reporton Operative Report Normal [facility] Laboratory - CoagulationOrde red By: Walter Becker on 10-25-2023 INR Coag (Bld) [Relative time] 3.2 {INR} [facility] PT Coag (PPP) [Time] 32.9 s 11.7-14.9 [facility] Laboratory - CoagulationOrde red By: Walter Becker on 10-16-2023 INR Coag (Bld) [Relative time] 1.9 {INR} [facility] PT Coag (PPP) [Time] 21.6 s 11.7-14.9 [facility] Basophil percentageOrdered B y: Walter Becker on 10-08-2023 Cholesterol [Mass/Vol] 107 mg/dL <200 [facility] Comment on above: <200 mg/dL Desirable 200-240 mg/dL Borderline >240 mg/dL High Risk Triglyceride [Mass/Vol] 133 mg/dL <199 [facility] Comment on above: The drugs N-Acetylcy steine and Metamizole may falsely depress this assay.Serum Triglycerides Reference Interval Normal <150 mg/dL Borderline high 150 - 199 mg/dL High 200 - 499 mg/dL Very High > or = 500 mg/dL Laboratory - Chemistry and C hemistry - challengeOrdered By: Walter Becker on 10-08-2023 ALT [Catalytic activity/Vol] 18 U/L 16-61 [facility] Cholesterol in HDL [Mass/Vol] 35 mg/dL >40 [facility] Comment on above: The drugs N-Acetylcy steine and Metamizole may falsely depress this assay. Reference Range HDL <40 mg/dL Low HDL Cholesterol HDL >or= 60 mg/dL High HDL Cholesterol Cholesterol in LDL [Mass/Vol] 45 mg/dL 0-130 [facility] CK [Catalytic activity/Vol] 59 U/L 39-308 [facility] No Panel InformationOrdered By: Walter Becker on 10-08-2023 VLDL Cholesterol 27 mg/dL 5-40 [facility] Thin prep Papanicolaou smear with manual screeningOrdered By: Walter Becker on 10-08-2023 Thin prep Papanicolaou smear with manual screening 10 U/L 15-37 [facility] Capillary blood internationa l normalized ratio (INR)Ordered By: Walter Becker on 10-04-2023 INR Coag (BldC) [Relative time] 2.2 [facility] Comment on above: Critical Value > 4.0 Whole blood prothrombin time Ordered By: Walter Becker on 10-04-2023 PT Coag (Bld) [Time] 22.6 s 11.7-14.9 [facility] Capillary blood internationa l normalized ratio (INR)Ordered By: Walter Becker on 10-01-2023 INR Coag (BldC) [Relative time] 1.9 [facility] Comment on above: Critical Value > 4.0 Whole blood prothrombin time Ordered By: Walter Becker on 10-01-2023 PT Coag (Bld) [Time] 19.9 s 11.7-14.9 [facility] Basophil percentageOrdered B y: Walter Becker on 09-25-2023 Bilirubin [Mass/Vol] 0.30 mg/dL 0.20-1.00 [facility] Comment on above: For patients on eltr ombopag therapy, use of Dimension [place] TBIL is not recommended. Chloride [Moles/Vol] 105 mmol/L 98-107 [facility] Glucose [Mass/Vol] 125 mg/dL 74-106 [facility] Comment on above: Fasting Glucose resu lt from 100 to 125 mg/dL suggests IMPAIRED HOMEOSTASIS per A.D.A. criteria. Hemoglobin (Bld) [Mass/Vol] 12.6 g/dL 13.0-16. 5 [facility] Potassium [Moles/Vol] 4.2 mmol/L 3.5-5.1 [facility] Protein [Mass/Vol] 6.2 g/dL 6.4-8.2 [facility] Sodium [Moles/Vol] 140 mmol/L 136-145 [facility] WBC (Bld) [#/Vol] 10.6 10*3/uL 4.4-11.0 [facility] Determination of erythrocyte mean corpuscular volume (MCV)Ordered By: Walter Becker on 09-25-2023 MCV (RBC) [Entitic vol] 85.8 fL 80-94 [facility] Erythrocyte distribution wid th ratioOrdered By: Walter Becker on 09-25-2023 Erythrocyte distribution width (RBC) [Ratio] 13.7 % 11.6-14.6 [facility] Erythrocyte distribution wid th standard deviationOrdered By: Walter Becker on 09-25-2023 Erythrocyte distribution width (RBC) [Entitic vol] 42.4 fL 35.1-43.9 [facility] Hematocrit Auto (Bld) [Volum e fraction]Ordered By: Walter Becker on 09-25-2023 Hematocrit (Bld) [Volume fraction] 39.4 % 40-54 [facility] Laboratory - Chemistry and C hemistry - challengeOrdered By: Walter Becker on 09-25-2023 Albumin/Globulin [Mass ratio] 1.1 {ratio} 0.9-2.4 [facility] ALP [Catalytic activity/Vol] 107 U/L 45-117 [facility] ALT [Catalytic activity/Vol] 19 U/L 16-61 [facility] CO2 [Moles/Vol] 29.0 mmol/L 21.0-32.0 [facility] Globulin (S) [Mass/Vol] 3.0 g/dL 2.2-4.2 [facility] Urea nitrogen/Creatinine [Mass ratio] 29.8 mg/mg 10-20 [facility] Laboratory - CoagulationOrde red By: Walter Becker on 09-25-2023 INR Coag (Bld) [Relative time] 2.8 {INR} [facility] PT Coag (PPP) [Time] 28.9 s 11.7-14.9 [facility] Laboratory - Hematology and Cell countsOrdered By: Walter Becker on 09-25-2023 MCH (RBC) [Entitic mass] 27.5 pg 27.0-32.0 [facility] MCHC (RBC) [Mass/Vol] 32.0 g/dL 32-36 [facility] Platelet mean volume (Bld) [Entitic vol] 9.9 fL 6.2-12.0 [facility] Platelets (Bld) [#/Vol] 235 10*3/uL 150-450 [facility] No Panel InformationOrdered By: Walter Becker on 09-25-2023 Estimated GFR (MDRD) Amer 75 mL/min >60 [facility] Comment on above: GFR Calc Estimated GFR (MDRD) Non-Af Amer 62 mL/min >60 [facility] Comment on above: Non- GFR Calc RBC Auto (Bld) [#/Vol]Ordere d By: Walter Becker on 09-25-2023 RBC (Bld) [#/Vol] 4.59 10*6/uL 4.6-6.2 [facility] Serum or plasma calcium antoine urement (mass/volume)Ordered By: Walter Becker on 09-25-2023 Calcium [Mass/Vol] 9.6 mg/dL 8.5-10.1 [facility] Serum or plasma creatinine m easurement (mass/volume)Ordered By: Walter Becker on 09-25-2023 Creatinine [Mass/Vol] 1.21 mg/dL 0.70-1.30 [facility] Comment on above: The validity of the calculated GFR & GFRAA in patients over 70 years has not been determined. Clinical correlation is essential. Serum or plasma urea nitroge n measurement (mass/volume)Ordered By: Walter Becker on 09-25-2023 Urea nitrogen [Mass/Vol] 36 mg/dL 7-18 [facility] Thin prep Papanicolaou smear with manual screeningOrdered By: Walter Becker on 09-25-2023 Thin prep Papanicolaou smear with manual screening 3.2 g/dL 3.2-5.0 [facility] Thin prep Papanicolaou smear with manual screening 11 U/L 15-37 [facility] Thin prep Papanicolaou smear with manual screening 6 5-15 [facility] Laboratory - CoagulationOrde red By: Walter Becker on 09-18-2023 INR Coag (Bld) [Relative time] 1.6 {INR} [facility] PT Coag (PPP) [Time] 18.7 s 11.7-14.9 [facility] Capillary blood internationa l normalized ratio (INR)Ordered By: Walter Becker on 09-13-2023 INR Coag (BldC) [Relative time] 3.1 [facility] Comment on above: Critical Value > 4.0 Whole blood prothrombin time Ordered By: Walter Becker on 09-13-2023 PT Coag (Bld) [Time] 33.3 s 11.7-14.9 [facility] Capillary blood internationa l normalized ratio (INR)Ordered By: Walter Becker on 09-12-2023 INR Coag (BldC) [Relative time] 1.7 [facility] Comment on above: Critical Value > 4.0 Whole blood prothrombin time Ordered By: Walter Becker on 09-12-2023 PT Coag (Bld) [Time] 19.2 s 11.7-14.9 [facility] Capillary blood internationa l normalized ratio (INR)Ordered By: Walter Becker on 09-09-2023 INR Coag (BldC) [Relative time] 2.9 [facility] Comment on above: Critical Value > 4.0 Whole blood prothrombin time Ordered By: Walter Becker on 09-09-2023 PT Coag (Bld) [Time] 31.5 s 11.7-14.9 [facility] Laboratory - CoagulationOrde red By: Walter Becker on 08-26-2023 INR Coag (Bld) [Relative time] 2.2 {INR} [facility] PT Coag (PPP) [Time] 24.7 s 11.7-14.9 [facility] Capillary blood internationa l normalized ratio (INR)Ordered By: Walter Becker on 08-19-2023 INR Coag (BldC) [Relative time] 2.7 [facility] Comment on above: Critical Value > 4.0 Whole blood prothrombin time Ordered By: Walter Becker on 08-19-2023 PT Coag (Bld) [Time] 29.2 s 11.7-14.9 [facility] Capillary blood internationa l normalized ratio (INR)Ordered By: Walter Becker on 08-12-2023 INR Coag (BldC) [Relative time] 2.5 [facility] Comment on above: Critical Value > 4.0 Whole blood prothrombin time Ordered By: Walter Becker on 08-12-2023 PT Coag (Bld) [Time] 26.7 s 11.7-14.9 [facility] Capillary blood internationa l normalized ratio (INR)Ordered By: Walter Becker on 08-05-2023 INR Coag (BldC) [Relative time] 1.9 [facility] Comment on above: Critical Value > 4.0 Whole blood prothrombin time Ordered By: Walter Becker on 08-05-2023 PT Coag (Bld) [Time] 20.7 s 11.7-14.9 [facility] Laboratory - CoagulationOrde red By: Walter Becker on 07-29-2023 INR Coag (Bld) [Relative time] 2.3 {INR} [facility] Comment on above: Critical Value > 4.0 Whole blood prothrombin time Ordered By: Walter Becker on 07-29-2023 PT Coag (Bld) [Time] 25.0 s 11.7-14.9 [facility] Laboratory - CoagulationOrde red By: Walter Becker on 07-22-2023 INR Coag (Bld) [Relative time] 2.0 {INR} [facility] Comment on above: Critical Value > 4.0 Whole blood prothrombin time Ordered By: Walter Becker on 07-22-2023 PT Coag (Bld) [Time] 22.4 s 11.7-14.9 [facility] Laboratory - CoagulationOrde red By: Walter Becker on 07-19-2023 INR Coag (Bld) [Relative time] 3.4 {INR} [facility] Comment on above: Critical Value > 4.0 Whole blood prothrombin time Ordered By: Walter Becker on 07-19-2023 PT Coag (Bld) [Time] 36.2 s 11.7-14.9 [facility] Laboratory - CoagulationOrde red By: Walter Becker on 07-17-2023 INR Coag (Bld) [Relative time] 3.0 {INR} [facility] Comment on above: Critical Value > 4.0 Whole blood prothrombin time Ordered By: Walter Becker on 07-17-2023 PT Coag (Bld) [Time] 32.2 s 11.7-14.9 [facility] Laboratory - CoagulationOrde red By: Walter Becker on 07-10-2023 INR Coag (Bld) [Relative time] 2.3 {INR} [facility] Comment on above: Critical Value > 4.0 Whole blood prothrombin time Ordered By: Walter Becker on 07-10-2023 PT Coag (Bld) [Time] 25.4 s 11.7-14.9 [facility] Laboratory - CoagulationOrde red By: Walter Becker on 07-03-2023 INR Coag (Bld) [Relative time] 1.5 {INR} [facility] Comment on above: Critical Value > 4.0 Whole blood prothrombin time Ordered By: Walter Becker on 07-03-2023 PT Coag (Bld) [Time] 16.5 s 11.7-14.9 [facility] Laboratory - CoagulationOrde red By: Walter Becker on 06-26-2023 INR Coag (Bld) [Relative time] 2.3 {INR} [facility] Comment on above: Critical Value > 4.0 Whole blood prothrombin time Ordered By: Walter Becker on 06-26-2023 PT Coag (Bld) [Time] 24.7 s 11.7-14.9 [facility] Laboratory - CoagulationOrde red By: Walter Becker on 06-25-2023 INR Coag (Bld) [Relative time] 3.2 {INR} [facility] Comment on above: Critical Value > 4.0 Whole blood prothrombin time Ordered By: Walter Becker on 06-25-2023 PT Coag (Bld) [Time] 34.3 s 11.7-14.9 [facility] - CoagulationOrde red By: Walter Becker on 06-24-2023 INR Coag (Bld) [Relative time] 3.4 {INR} [facility] Comment on above: Critical Value > 4.0 Whole blood prothrombin time Ordered By: Walter Becker on 06-24-2023 PT Coag (Bld) [Time] 36.4 s 11.7-14.9 [facility] Laboratory - CoagulationOrde red By: Walter Becker on 06-17-2023 INR Coag (Bld) [Relative time] 2.4 {INR} [facility] Comment on above: Critical Value > 4.0 Whole blood prothrombin time Ordered By: Walter Becker on 06-17-2023 PT Coag (Bld) [Time] 26.1 s 11.7-14.9 [facility] Laboratory - CoagulationOrde red By: Walter Becker on 06-10-2023 INR Coag (Bld) [Relative time] 1.4 {INR} [facility] Comment on above: Critical Value > 4.0 Whole blood prothrombin time Ordered By: Walter Becker on 06-10-2023 PT Coag (Bld) [Time] 15.9 s 11.7-14.9 [facility] Glucose Glucometer (BldC) [M ass/Vol]Ordered By: Kee Merritt on 06-03-2023 Glucose [Mass/Vol] 130 mg/dL 74-106 [facility] Comment on above: MANAGEMENT OF PATIEN T CARE PER NURSING PROTOCOL Laboratory - CoagulationOrde red By: Walter Becker on 05-20-2023 INR Coag (Bld) [Relative time] 2.6 {INR} [facility] Comment on above: Critical Value > 4.0 No Panel InformationOrdered By: Walter Becker on 05-20-2023 2.6 [facility] Whole blood prothrombin time Ordered By: Walter Becker on 05-20-2023 PT Coag (Bld) [Time] 27.6 s 11.7-14.9 [facility] Basophil percentageOrdered B y: Walter Becker on 05-15-2023 Basophil percentage 0 SEEN /hpf 0-5 [facility] Basophil percentage 114 mg/dL 74-106 [facility] Basophil percentage 5.9 g/dL 6.4-8.2 [facility] Basophil percentage 0.40 mg/dL 0.20-1.00 [facility] Basophil percentage 140 mmol/L 136-145 [facility] Basophil percentage 4.1 mmol/L 3.5-5.1 [facility] Basophil percentage 105 mmol/L 98-107 [facility] Basophils (Bld) [#/Vol] 10.4 10*3/uL 4.4-11.0 [facility] Bilirubin [Mass/Vol] 0.40 mg/dL 0.20-1.00 [facility] Comment on above: For patients on eltr ombopag therapy, use of [place] TBIL is not recommended. Chloride [Moles/Vol] 105 mmol/L 98-107 [facility] Glucose [Mass/Vol] 114 mg/dL 74-106 [facility] Comment on above: Fasting Glucose resu lt from 100 to 125 mg/dL suggests IMPAIRED HOMEOSTASIS per A.D.A. criteria. Potassium [Moles/Vol] 4.1 mmol/L 3.5-5.1 [facility] Protein [Mass/Vol] 5.9 g/dL 6.4-8.2 [facility] Sodium [Moles/Vol] 140 mmol/L 136-145 [facility] WBC (Bld) [#/Vol] 10.4 10*3/uL 4.4-11.0 [facility] Bilirubin Test strip Ql (U)O rdered By: Walter Becker on 05-15-2023 Bilirubin Ql (U) Negative Negative [facility] Blood erythrocytes count (nu mber/volume)Ordered By: Walter Becker on 05-15-2023 RBC (Bld) [#/Vol] 4.37 10*6/uL 4.6-6.2 [facility] Blood hemoglobin measurement (mass/volume)Ordered By: Walter Becker on 05-15-2023 Hemoglobin (Bld) [Mass/Vol] 11.6 g/dL 13.0-16. 5 [facility] Blood platelet mean volumeOr dered By: Walter Becker on 05-15-2023 Platelet mean volume (Bld) [Entitic vol] 9.4 fL 6.2-12.0 [facility] Culture, urineOrdered By: Horner on 05-15-2023 Bacteria identified Cx Nom (U) Culture exhibits no growth. [facility] Determination of erythrocyte mean corpuscular volume (MCV)Ordered By: Walter Becker on 05-15-2023 MCV (RBC) [Entitic vol] 84.7 fL 80-94 [facility] Hematocrit Auto (Bld) [Volum e fraction]Ordered By: Walter Becker on 05-15-2023 Hematocrit (Bld) [Volume fraction] 37.0 % 40-54 [facility] Ketones Test strip Ql (U)Ord ered By: Walter Becker on 05-15-2023 Ketones Ql (U) Negative Negative [facility] Laboratory - Chemistry and C hemistry - challengeOrdered By: Walter Becker on 05-15-2023 ALP [Catalytic activity/Vol] 97 U/L 45-117 [facility] ALT [Catalytic activity/Vol] 21 U/L 16-61 [facility] CO2 [Moles/Vol] 28.0 mmol/L 21.0-32.0 [facility] Globulin (S) [Mass/Vol] 3.0 g/dL 2.2-4.2 [facility] Urea nitrogen/Creatinine [Mass ratio] 30.7 mg/mg 10-20 [facility] Laboratory - Hematology and Cell countsOrdered By: Walter Becker on 05-15-2023 Erythrocyte distribution width (RBC) [Entitic vol] 43.3 fL 35.1-43.9 [facility] Erythrocyte distribution width (RBC) [Ratio] 14.1 % 11.6-14.6 [facility] MCH (RBC) [Entitic mass] 26.5 pg 27.0-32.0 [facility] MCHC Auto (RBC) [Mass/Vol]Or dered By: Walter Becker on 05-15-2023 MCHC (RBC) [Mass/Vol] 31.4 g/dL 32-36 [facility] Mucus LM Ql (Urine sed)Order ed By: Walter Becker on 05-15-2023 Mucus Ql (Urine sed) 0 SEEN /hpf [facility] Nitrite Test strip Ql (U)Ord ered By: Walter Becker on 05-15-2023 Nitrite Ql (U) Negative Negative [facility] No Panel InformationOrdered By: Walter Becker on 05-15-2023 Estimated GFR (MDRD) Amer 96 mL/min >60 [facility] Comment on above: GFR Calc Estimated GFR (MDRD) Non-Af Amer 79 mL/min >60 [facility] Comment on above: Non- GFR Calc 26.5 pg 27.0-32.0 [facility] 14.1 % 11.6-14.6 [facility] 43.3 fl 35.1-43.9 [facility] 79 mL/min >60 [facility] 96 mL/min >60 [facility] 30.7 RATIO 10-20 [facility] 3.0 g/dL 2.2-4.2 [facility] 97 U/L 45-117 [facility] 21 U/L 16-61 [facility] 28.0 mmol/L 21.0-32.0 [facility] Platelets bldOrdered By: Crystal Becker on 05-15-2023 Platelets (Bld) [#/Vol] 256 10*3/uL 150-450 [facility] Protein Test strip Ql (U)Ord ered By: Walter Becker on 05-15-2023 Protein Ql (U) Negative Negative [facility] Serum or plasma albumin antoine urement (mass/volume)Ordered By: Walter Becker on 05-15-2023 Albumin [Mass/Vol] 2.9 g/dL 3.2-5.0 [facility] Serum or plasma albumin/glob ulin mass ratioOrdered By: Walter Becker on 05-15-2023 Albumin/Globulin [Mass ratio] 1.0 {ratio} 0.9-2.4 [facility] Serum or plasma calcium antoine urement (mass/volume)Ordered By: Walter Becker on 05-15-2023 Calcium [Mass/Vol] 8.8 mg/dL 8.5-10.1 [facility] Serum or plasma creatinine m easurement (mass/volume)Ordered By: Walter Becker on 05-15-2023 Creatinine [Mass/Vol] 0.98 mg/dL 0.70-1.30 [facility] Comment on above: The validity of the calculated GFR & GFRAA in patients over 70 years has not been determined. Clinical correlation is essential. Serum or plasma urea nitroge n measurement (mass/volume)Ordered By: Walter Becker on 05-15-2023 Urea nitrogen [Mass/Vol] 30 mg/dL 7-18 [facility] Squamous epithelial cells de tection in urine sediment by light microscopyOrdered By: Walter Becker on 05-15-2023 Epithelial cells.squamous LM Ql (Urine sed) 0 SEEN /hpf 0-5 [facility] Thin prep Papanicolaou smear with manual screeningOrdered By: Walter Becker on 05-15-2023 Thin prep Papanicolaou smear with manual screening 9 U/L 15-37 [facility] Thin prep Papanicolaou smear with manual screening 7 5-15 [facility] Urine blood detectionOrdered By: Walter Becker on 05-15-2023 RBC Ql (U) Negative Negative [facility] RBC Ql (U) 0 SEEN /hpf 0-5 [facility] Urine clarityOrdered By: Crystal Becker on 05-15-2023 Clarity (U) Clear Clear [facility] Urine color determinationOrd ered By: Walter Becker on 05-15-2023 Color (U) Yellow Yellow [facility] Urine glucose detectionOrder ed By: Walter Becker on 05-15-2023 Glucose Ql (U) Normal mg/dl Normal [facility] Urine leukocyte esterase det ection by dipstickOrdered By: Walter Becker on 05-15-2023 Leukocyte esterase Test strip Ql (U) Negative Negative [facility] Urine pHOrdered By: Walter floyd on 05-15-2023 pH (U) 5.0 [pH] 5.0 - 8.0 [facility] Urine sediment bacteria coun t by microscopy (number/high power field)Ordered By: Walter Becker on 05-15-2023 Bacteria LM.HPF (Urine sed) [#/Area] 0 /[HPF] None Seen [facility] Urine specific gravity measu rementOrdered By: Walter Becker on 05-15-2023 Specific gravity (U) [Rel density] 1.010 1.002-1.03 0 [facility] Urobilinogen Auto test strip Ql (U)Ordered By: Walter Becker on 05-15-2023 Urobilinogen Ql (U) Normal mg/dl Normal [facility] Basophil percentageOrdered B y: Walter Becker on 05-06-2023 Basophil percentage 135 mg/dL 74-106 [facility] Basophil percentage 5.9 g/dL 6.4-8.2 [facility] Basophil percentage 0.40 mg/dL 0.20-1.00 [facility] Basophil percentage 140 mmol/L 136-145 [facility] Basophil percentage 3.7 mmol/L 3.5-5.1 [facility] Basophil percentage 106 mmol/L 98-107 [facility] Basophils (Bld) [#/Vol] 9.4 10*3/uL 4.4-11.0 [facility] Bilirubin [Mass/Vol] 0.40 mg/dL 0.20-1.00 [facility] Comment on above: For patients on eltr ombopag therapy, use of [place] TBIL is not recommended. Chloride [Moles/Vol] 106 mmol/L 98-107 [facility] Glucose [Mass/Vol] 135 mg/dL 74-106 [facility] Comment on above: Fasting Glucose resu lt greater than or equal to 126 mg/dL suggests DIABETES MELLITUS per A.D.A. criteria. Potassium [Moles/Vol] 3.7 mmol/L 3.5-5.1 [facility] Protein [Mass/Vol] 5.9 g/dL 6.4-8.2 [facility] Sodium [Moles/Vol] 140 mmol/L 136-145 [facility] WBC (Bld) [#/Vol] 9.4 10*3/uL 4.4-11.0 [facility] Blood erythrocytes count (nu mber/volume)Ordered By: Walter Becker on 05-06-2023 RBC (Bld) [#/Vol] 4.49 10*6/uL 4.6-6.2 [facility] Blood hemoglobin measurement (mass/volume)Ordered By: Walter Becker on 05-06-2023 Hemoglobin (Bld) [Mass/Vol] 12.0 g/dL 13.0-16. 5 [facility] Blood platelet mean volumeOr dered By: Walter Becker on 05-06-2023 Platelet mean volume (Bld) [Entitic vol] 9.5 fL 6.2-12.0 [facility] Determination of erythrocyte mean corpuscular volume (MCV)Ordered By: Walter Becker on 05-06-2023 MCV (RBC) [Entitic vol] 85.7 fL 80-94 [facility] Hematocrit Auto (Bld) [Volum e fraction]Ordered By: Walter Becker on 05-06-2023 Hematocrit (Bld) [Volume fraction] 38.5 % 40-54 [facility] INR in Blood by Coagulation assayOrdered By: Walter Becker on 05-06-2023 INR Coag (Bld) [Relative time] 2.5 {INR} [facility] Laboratory - Chemistry and C hemistry - challengeOrdered By: Walter Becker on 05-06-2023 ALP [Catalytic activity/Vol] 93 U/L 45-117 [facility] ALT [Catalytic activity/Vol] 23 U/L 16-61 [facility] CO2 [Moles/Vol] 29.0 mmol/L 21.0-32.0 [facility] Globulin (S) [Mass/Vol] 2.9 g/dL 2.2-4.2 [facility] Urea nitrogen/Creatinine [Mass ratio] 25.8 mg/mg 05-03 [facility] Laboratory - CoagulationOrde red By: Walter Becker on 05-06-2023 PT Coag (PPP) [Time] 27.5 s 11.7-14.9 [facility] Laboratory - Hematology and Cell countsOrdered By: Walter Becker on 05-06-2023 Erythrocyte distribution width (RBC) [Entitic vol] 44.4 fL 35.1-43.9 [facility] Erythrocyte distribution width (RBC) [Ratio] 14.2 % 11.6-14.6 [facility] MCH (RBC) [Entitic mass] 26.7 pg 27.0-32.0 [facility] MCHC Auto (RBC) [Mass/Vol]Or dered By: Walter Becker on 05-06-2023 MCHC (RBC) [Mass/Vol] 31.2 g/dL 32-36 [facility] No Panel InformationOrdered By: Walter Becker on 05-06-2023 Estimated GFR (MDRD) Amer 102 mL/min >60 [facility] Comment on above: GFR Calc Estimated GFR (MDRD) Non-Af Amer 84 mL/min >60 [facility] Comment on above: Non- GFR Calc 26.7 pg 27.0-32.0 [facility] 14.2 % 11.6-14.6 [facility] 44.4 fl 35.1-43.9 [facility] 27.5 SECONDS 11.7-14.9 [facility] 84 mL/min >60 [facility] 102 mL/min >60 [facility] 25.8 RATIO 10-20 [facility] 2.9 g/dL 2.2-4.2 [facility] 93 U/L 45-117 [facility] 23 U/L 16-61 [facility] 29.0 mmol/L 21.0-32.0 [facility] Platelets bldOrdered By: Crystal Becker on 05-06-2023 Platelets (Bld) [#/Vol] 238 10*3/uL 150-450 [facility] Serum or plasma albumin antoine urement (mass/volume)Ordered By: Walter Becker on 05-06-2023 Albumin [Mass/Vol] 3.0 g/dL 3.2-5.0 [facility] Serum or plasma albumin/glob ulin mass ratioOrdered By: Walter Becker on 05-06-2023 Albumin/Globulin [Mass ratio] 1.0 {ratio} 0.9-2.4 [facility] Serum or plasma calcium antoine urement (mass/volume)Ordered By: Walter Becker on 05-06-2023 Calcium [Mass/Vol] 9.1 mg/dL 8.5-10.1 [facility] Serum or plasma creatinine m easurement (mass/volume)Ordered By: Walter Becker on 05-06-2023 Creatinine [Mass/Vol] 0.93 mg/dL 0.70-1.30 [facility] Comment on above: The validity of the calculated GFR & GFRAA in patients over 70 years has not been determined. Clinical correlation is essential. Serum or plasma urea nitroge n measurement (mass/volume)Ordered By: Walter Becker on 05-06-2023 Urea nitrogen [Mass/Vol] 24 mg/dL 7-18 [facility] Thin prep Papanicolaou smear with manual screeningOrdered By: Walter Becker on 05-06-2023 Thin prep Papanicolaou smear with manual screening 10 U/L 15-37 [facility] Thin prep Papanicolaou smear with manual screening 5 5-15 [facility] Laboratory - CoagulationOrde red By: Walter Becker on 04-29-2023 INR Coag (Bld) [Relative time] 2.8 {INR} [facility] Comment on above: Critical Value > 4.0 No Panel InformationOrdered By: Walter Becker on 04-29-2023 2.8 [facility] Whole blood prothrombin time Ordered By: Walter Becker on 04-29-2023 PT Coag (Bld) [Time] 29.6 s 11.7-14.9 [facility] Laboratory - CoagulationOrde red By: Walter Becker on 04-15-2023 INR Coag (Bld) [Relative time] 2.5 {INR} [facility] Comment on above: Critical Value > 4.0 No Panel InformationOrdered By: Walter Becker on 04-15-2023 2.5 [facility] Whole blood prothrombin time Ordered By: Walter Becker on 04-15-2023 PT Coag (Bld) [Time] 27.3 s 11.7-14.9 [facility] Basophil percentageOrdered B y: Walter Becker on 04-09-2023 Basophil percentage 115 mg/dL 74-106 [facility] Basophil percentage 5.8 g/dL 6.4-8.2 [facility] Basophil percentage 0.40 mg/dL 0.20-1.00 [facility] Basophil percentage 141 mmol/L 136-145 [facility] Basophil percentage 3.9 mmol/L 3.5-5.1 [facility] Basophil percentage 106 mmol/L 98-107 [facility] Basophils (Bld) [#/Vol] 10.2 10*3/uL 4.4-11.0 [facility] Bilirubin [Mass/Vol] 0.40 mg/dL 0.20-1.00 [facility] Comment on above: For patients on eltr ombopag therapy, use of [place] TBIL is not recommended. Chloride [Moles/Vol] 106 mmol/L 98-107 [facility] Glucose [Mass/Vol] 115 mg/dL 74-106 [facility] Comment on above: Fasting Glucose resu lt from 100 to 125 mg/dL suggests IMPAIRED HOMEOSTASIS per A.D.A. criteria. Potassium [Moles/Vol] 3.9 mmol/L 3.5-5.1 [facility] Protein [Mass/Vol] 5.8 g/dL 6.4-8.2 [facility] Sodium [Moles/Vol] 141 mmol/L 136-145 [facility] WBC (Bld) [#/Vol] 10.2 10*3/uL 4.4-11.0 [facility] Blood erythrocytes count (nu mber/volume)Ordered By: Walter Becker on 04-09-2023 RBC (Bld) [#/Vol] 4.16 10*6/uL 4.6-6.2 [facility] Blood hemoglobin measurement (mass/volume)Ordered By: Walter Becker on 04-09-2023 Hemoglobin (Bld) [Mass/Vol] 11.3 g/dL 13.0-16. 5 [facility] Blood platelet mean volumeOr dered By: Walter Becker on 04-09-2023 Platelet mean volume (Bld) [Entitic vol] 9.4 fL 6.2-12.0 [facility] Determination of erythrocyte mean corpuscular volume (MCV)Ordered By: Walter Becker on 04-09-2023 MCV (RBC) [Entitic vol] 86.5 fL 80-94 [facility] Hematocrit Auto (Bld) [Volum e fraction]Ordered By: Walter Becker on 04-09-2023 Hematocrit (Bld) [Volume fraction] 36.0 % 40-54 [facility] Laboratory - Chemistry and C hemistry - challengeOrdered By: Watler Becker on 04-09-2023 ALP [Catalytic activity/Vol] 105 U/L 45-117 [facility] ALT [Catalytic activity/Vol] 22 U/L 16-61 [facility] CO2 [Moles/Vol] 31.0 mmol/L 21.0-32.0 [facility] Globulin (S) [Mass/Vol] 2.9 g/dL 2.2-4.2 [facility] Urea nitrogen/Creatinine [Mass ratio] 29.9 mg/mg 10-20 [facility] Laboratory - Hematology and Cell countsOrdered By: Walter Becker on 04-09-2023 Erythrocyte distribution width (RBC) [Entitic vol] 46.8 fL 35.1-43.9 [facility] Erythrocyte distribution width (RBC) [Ratio] 14.6 % 11.6-14.6 [facility] MCH (RBC) [Entitic mass] 27.2 pg 27.0-32.0 [facility] MCHC Auto (RBC) [Mass/Vol]Or dered By: Walter Becker on 04-09-2023 MCHC (RBC) [Mass/Vol] 31.4 g/dL 32-36 [facility] No Panel InformationOrdered By: Walter Becker on 04-09-2023 Estimated GFR (MDRD) Amer 101 mL/min >60 [facility] Comment on above: GFR Calc Estimated GFR (MDRD) Non-Af Amer 84 mL/min >60 [facility] Comment on above: Non- GFR Calc 27.2 pg 27.0-32.0 [facility] 14.6 % 11.6-14.6 [facility] 46.8 fl 35.1-43.9 [facility] 84 mL/min >60 [facility] 101 mL/min >60 [facility] 29.9 RATIO 10-20 [facility] 2.9 g/dL 2.2-4.2 [facility] 105 U/L 45-117 [facility] 22 U/L 16-61 [facility] 31.0 mmol/L 21.0-32.0 [facility] Platelets bldOrdered By: Crystal Becker on 04-09-2023 Platelets (Bld) [#/Vol] 229 10*3/uL 150-450 [facility] Serum or plasma albumin antoine urement (mass/volume)Ordered By: Walter Becker on 04-09-2023 Albumin [Mass/Vol] 2.9 g/dL 3.2-5.0 [facility] Serum or plasma albumin/glob ulin mass ratioOrdered By: Walter Becker on 04-09-2023 Albumin/Globulin [Mass ratio] 1.0 {ratio} 0.9-2.4 [facility] Serum or plasma calcium antoine urement (mass/volume)Ordered By: Walter Becker on 04-09-2023 Calcium [Mass/Vol] 9.0 mg/dL 8.5-10.1 [facility] Serum or plasma creatinine m easurement (mass/volume)Ordered By: Walter Becker on 04-09-2023 Creatinine [Mass/Vol] 0.94 mg/dL 0.70-1.30 [facility] Comment on above: The validity of the calculated GFR & GFRAA in patients over 70 years has not been determined. Clinical correlation is essential. Serum or plasma urea nitroge n measurement (mass/volume)Ordered By: Walter Becker on 04-09-2023 Urea nitrogen [Mass/Vol] 28 mg/dL 7-18 [facility] Thin prep Papanicolaou smear with manual screeningOrdered By: Walter Becker on 04-09-2023 Thin prep Papanicolaou smear with manual screening 7 U/L 15-37 [facility] Thin prep Papanicolaou smear with manual screening 4 5-15 [facility] Laboratory - CoagulationOrde red By: Walter Becker on 04-08-2023 INR Coag (Bld) [Relative time] 2.4 {INR} [facility] Comment on above: Critical Value > 4.0 No Panel InformationOrdered By: Walter Becker on 04-08-2023 2.4 [facility] Whole blood prothrombin time Ordered By: Walter Becker on 04-08-2023 PT Coag (Bld) [Time] 25.9 s 11.7-14.9 [facility] Laboratory - CoagulationOrde red By: Walter Becker on 04-01-2023 INR Coag (Bld) [Relative time] 1.9 {INR} [facility] Comment on above: Critical Value > 4.0 No Panel InformationOrdered By: Walter Becker on 04-01-2023 1.9 [facility] Whole blood prothrombin time Ordered By: Walter Becker on 04-01-2023 PT Coag (Bld) [Time] 21.0 s 11.7-14.9 [facility] Laboratory - CoagulationOrde red By: Walter Becker on 03-25-2023 INR Coag (Bld) [Relative time] 1.9 {INR} [facility] Comment on above: Critical Value > 4.0 No Panel InformationOrdered By: Walter Becker on 03-25-2023 1.9 [facility] Whole blood prothrombin time Ordered By: Walter Becker on 03-25-2023 PT Coag (Bld) [Time] 21.1 s 11.7-14.9 [facility] INR in Blood by Coagulation assayOrdered By: Walter Becker on 03-11-2023 INR Coag (Bld) [Relative time] 2.4 {INR} [facility] Laboratory - CoagulationOrde red By: Walter Becker on 03-11-2023 PT Coag (PPP) [Time] 26.6 s 11.7-14.9 [facility] No Panel InformationOrdered By: Walter Becker on 03-11-2023 26.6 SECONDS 11.7-14.9 [facility] Whole blood hemoglobin A1c/t otal hemoglobin ratio (mass fraction)Ordered By: Walter Becker on 03-11-2023 HbA1c (Bld) [Mass fraction] 5.5 % 3.8-5.6 [facility] Comment on above: Normal < 5.7 % Predi abetic 5.7 - 6.4 % Diabetic >or= 6.5 % Please note range changes. Basophil percentageOrdered B y: Walter Becker on 03-04-2023 Basophil percentage 114 mg/dL 74-106 [facility] Basophil percentage 5.8 g/dL 6.4-8.2 [facility] Basophil percentage 0.30 mg/dL 0.20-1.00 [facility] Basophil percentage 139 mmol/L 136-145 [facility] Basophil percentage 4.0 mmol/L 3.5-5.1 [facility] Basophil percentage 106 mmol/L 98-107 [facility] Bilirubin [Mass/Vol] 0.30 mg/dL 0.20-1.00 [facility] Comment on above: For patients on eltr ombopag therapy, use of [place] TBIL is not recommended. Chloride [Moles/Vol] 106 mmol/L 98-107 [facility] Glucose [Mass/Vol] 114 mg/dL 74-106 [facility] Comment on above: Fasting Glucose resu lt from 100 to 125 mg/dL suggests IMPAIRED HOMEOSTASIS per A.D.A. criteria. Potassium [Moles/Vol] 4.0 mmol/L 3.5-5.1 [facility] Protein [Mass/Vol] 5.8 g/dL 6.4-8.2 [facility] Sodium [Moles/Vol] 139 mmol/L 136-145 [facility] Blood hemoglobin measurement (mass/volume)Ordered By: Walter Becker on 03-04-2023 Hemoglobin (Bld) [Mass/Vol] 10.6 g/dL 13.0-16. 5 [facility] Hematocrit Auto (Bld) [Volum e fraction]Ordered By: Walter Becker on 03-04-2023 Hematocrit (Bld) [Volume fraction] 35.7 % 40-54 [facility] INR in Blood by Coagulation assayOrdered By: Walter Becker on 03-04-2023 INR Coag (Bld) [Relative time] 2.3 {INR} [facility] Laboratory - Chemistry and C hemistry - challengeOrdered By: Walter Becker on 03-04-2023 ALP [Catalytic activity/Vol] 92 U/L 45-117 [facility] ALT [Catalytic activity/Vol] 25 U/L 16-61 [facility] CO2 [Moles/Vol] 28.0 mmol/L 21.0-32.0 [facility] Globulin (S) [Mass/Vol] 3.0 g/dL 2.2-4.2 [facility] Urea nitrogen/Creatinine [Mass ratio] 33.0 mg/mg 10-20 [facility] Laboratory - CoagulationOrde red By: Walter Becker on 03-04-2023 PT Coag (PPP) [Time] 25.8 s 11.7-14.9 [facility] No Panel InformationOrdered By: Walter Becker on 03-04-2023 Estimated GFR (MDRD) Amer 88 mL/min >60 [facility] Comment on above: GFR Calc Estimated GFR (MDRD) Non-Af Amer 72 mL/min >60 [facility] Comment on above: Non- GFR Calc 25.8 SECONDS 11.7-14.9 [facility] 72 mL/min >60 [facility] 88 mL/min >60 [facility] 33.0 RATIO 10-20 [facility] [facility] 3.0 g/dL 2.2-4.2 [facility] 92 U/L 45-117 [facility] 25 U/L 16-61 [facility] 28.0 mmol/L 21.0-32.0 [facility] Serum or plasma albumin antoine urement (mass/volume)Ordered By: Walter Becker on 03-04-2023 Albumin [Mass/Vol] 2.8 g/dL 3.2-5.0 [facility] Serum or plasma albumin/glob ulin mass ratioOrdered By: Walter Becker on 03-04-2023 Albumin/Globulin [Mass ratio] 0.9 {ratio} 0.9-2.4 [facility] Serum or plasma calcium antoine urement (mass/volume)Ordered By: Walter Becker on 03-04-2023 Calcium [Mass/Vol] 9.1 mg/dL 8.5-10.1 [facility] Serum or plasma creatinine m easurement (mass/volume)Ordered By: Walter Becker on 03-04-2023 Creatinine [Mass/Vol] 1.06 mg/dL 0.70-1.30 [facility] Comment on above: The validity of the calculated GFR & GFRAA in patients over 70 years has not been determined. Clinical correlation is essential. Serum or plasma urea nitroge n measurement (mass/volume)Ordered By: Walter Becker on 03-04-2023 Urea nitrogen [Mass/Vol] 35 mg/dL 7-18 [facility] Thin prep Papanicolaou smear with manual screeningOrdered By: Walter Becker on 03-04-2023 Thin prep Papanicolaou smear with manual screening 12 U/L 15-37 [facility] Thin prep Papanicolaou smear with manual screening 5 5-15 [facility] Laboratory - CoagulationOrde red By: Walter Becker on 03-01-2023 INR Coag (Bld) [Relative time] 2.2 {INR} [facility] Comment on above: Critical Value > 4.0 No Panel InformationOrdered By: Walter Becker on 03-01-2023 2.2 [facility] Whole blood prothrombin time Ordered By: Watler Becker on 03-01-2023 PT Coag (Bld) [Time] 24.4 s 11.7-14.9 [facility] Blood hemoglobin measurement (mass/volume)Ordered By: Walter Becker on 02-25-2023 Hemoglobin (Bld) [Mass/Vol] 11.0 g/dL 13.0-16. 5 [facility] Hematocrit Auto (Bld) [Volum e fraction]Ordered By: Walter Becker on 02-25-2023 Hematocrit (Bld) [Volume fraction] 36.8 % 40-54 [facility] INR in Blood by Coagulation assayOrdered By: Walter Becker on 02-25-2023 INR Coag (Bld) [Relative time] 2.6 {INR} [facility] Laboratory - CoagulationOrde red By: Walter Becker on 02-25-2023 PT Coag (PPP) [Time] 28.0 s 11.7-14.9 [facility] No Panel InformationOrdered By: Walter Becker on 02-25-2023 28.0 SECONDS 11.7-14.9 [facility] Laboratory - CoagulationOrde red By: Walter Becker on 02-22-2023 INR Coag (Bld) [Relative time] 2.6 {INR} [facility] Comment on above: Critical Value > 4.0 No Panel InformationOrdered By: Walter Becker on 02-22-2023 2.6 [facility] Whole blood prothrombin time Ordered By: Walter Becker on 02-22-2023 PT Coag (Bld) [Time] 28.4 s 11.7-14.9 [facility] No Panel InformationOrdered By: Walter Becker on 02-20-2023 2.9 [facility] Whole blood prothrombin time Ordered By: Walter Becker on 02-20-2023 PT Coag (Bld) [Time] 30.7 s 11.7-14.9 [facility] Blood hemoglobin measurement (mass/volume)Ordered By: Walter Becker on 02-18-2023 Hemoglobin (Bld) [Mass/Vol] 8.8 g/dL 13.0-16. 5 [facility] Hematocrit Auto (Bld) [Volum e fraction]Ordered By: Walter Becker on 02-18-2023 Hematocrit (Bld) [Volume fraction] 28.2 % 40-54 [facility] INR in Blood by Coagulation assayOrdered By: Walter Becker on 02-18-2023 INR Coag (Bld) [Relative time] 2.8 {INR} [facility] No Panel InformationOrdered By: Walter Becker on 02-18-2023 29.5 SECONDS 11.7-14.9 [facility] No Panel InformationOrdered By: Walter Becker on 02-14-2023 2.2 [facility] Whole blood prothrombin time Ordered By: Walter Becker on 02-14-2023 PT Coag (Bld) [Time] 24.3 s 11.7-14.9 [facility] Absolute lymphocyte countOrd ered By: Gabriel Giraldo on 02-13-2023 Lymphocytes Auto (Unsp spec) [#/Vol] 0.84 10*3/uL 0.83-4.51 [facility] Basophil percentageOrdered B y: Gabriel Giraldo on 02-13-2023 Basophils (Bld) [#/Vol] 5.4 10*3/uL 4.4-11.0 [facility] Basophils (Bld) [#/Vol] 3.6 10*3/uL 2.0-7.7 [facility] Basophils/100 WBC (Bld) 67.5 % 47-70 [facility] Basophils/100 WBC (Bld) 4.1 % 0-5 [facility] Basophils/100 WBC (Bld) 0.4 % 0-1 [facility] Blood erythrocytes count (nu mber/volume)Ordered By: Gabriel Giraldo on 02-13-2023 RBC (Bld) [#/Vol] 2.76 10*6/uL 4.6-6.2 [facility] Blood hemoglobin measurement (mass/volume)Ordered By: Gabriel Giraldo on 02-13-2023 Hemoglobin (Bld) [Mass/Vol] 7.5 g/dL 13.0-16. 5 [facility] Blood lymphocytes/100 leukoc ytesOrdered By: Gabriel Giraldo on 02-13-2023 Lymphocytes/100 WBC (Bld) 15.7 % 19-41 [facility] Blood monocytes/100 leukocyt esOrdered By: Gabriel Giraldo on 02-13-2023 Monocytes/100 WBC (Bld) 11.2 % 0-10 [facility] Blood platelet mean volumeOr dered By: Gabriel Giraldo on 02-13-2023 Platelet mean volume (Bld) [Entitic vol] 9.2 fL 6.2-12.0 [facility] COVID-19 virus antigen assay Ordered By: Gabriel Giraldo on 02-13-2023 SARS-CoV-2 (COVID-19) Ag IA.rapid Ql (Resp) [facility] SARS-CoV-2 (COVID-19) Ag IA.rapid Ql (Resp) [facility] Determination of erythrocyte mean corpuscular volume (MCV)Ordered By: Gabriel Giraldo on 02-13-2023 MCV (RBC) [Entitic vol] 88.4 fL 80-94 [facility] Glucose Glucometer (BldC) [M ass/Vol]Ordered By: Gabriel Giraldo on 02-13-2023 Glucose [Mass/Vol] 146 mg/dL 74-106 [facility] Hematocrit Auto (Bld) [Volum e fraction]Ordered By: Gabriel Giraldo on 02-13-2023 Hematocrit (Bld) [Volume fraction] 24.4 % 40-54 [facility] MCHC Auto (RBC) [Mass/Vol]Or dered By: Gabriel Giraldo on 02-13-2023 MCHC (RBC) [Mass/Vol] 30.7 g/dL 32-36 [facility] No Panel InformationOrdered By: Gabriel Giraldo on 02-13-2023 27.2 pg 27.0-32.0 [facility] 16.6 % 11.6-14.6 [facility] 54.5 fl 35.1-43.9 [facility] 1.100 % 0.0-0.9 [facility] 0.9 % 0-5 [facility] Platelets bldOrdered By: Elis Giraldo on 02-13-2023 Platelets (Bld) [#/Vol] 194 10*3/uL 150-450 [facility] INR in Blood by Coagulation assayOrdered By: Gabriel Giraldo on 02-12-2023 INR Coag (Bld) [Relative time] 1.6 {INR} [facility] No Panel InformationOrdered By: Smith Leija on 02-12-2023 No growth in 5 days. [facility] No growth in 5 days. [facility] No Panel InformationOrdered By: Gabriel Enzo on 02-12-2023 19.3 SECONDS 11.7-14.9 [facility] Basophil percentageOrdered B y: Dandy Sauer on 02-11-2023 Basophil percentage 2.2 mmol/L 0.4-2.0 [facility] Basophil percentage 2.8 mmol/L 0.4-2.0 [facility] Basophil percentageOrdered B y: Walter Becker on 02-11-2023 Basophil percentage 168 mg/dL 74-106 [facility] Basophil percentage 135 mmol/L 136-145 [facility] Basophil percentage 3.7 mmol/L 3.5-5.1 [facility] Basophil percentage 103 mmol/L 98-107 [facility] Basophils (Bld) [#/Vol] 10.2 10*3/uL 4.4-11.0 [facility] Blood erythrocytes count (nu mber/volume)Ordered By: Walter Becker on 02-11-2023 RBC (Bld) [#/Vol] 3.16 10*6/uL 4.6-6.2 [facility] Blood hemoglobin measurement (mass/volume)Ordered By: Walter Becker on 02-11-2023 Hemoglobin (Bld) [Mass/Vol] 8.7 g/dL 13.0-16. 5 [facility] Blood platelet mean volumeOr dered By: Walter Becker on 02-11-2023 Platelet mean volume (Bld) [Entitic vol] 9.3 fL 6.2-12.0 [facility] Determination of erythrocyte mean corpuscular volume (MCV)Ordered By: Walter Becker on 02-11-2023 MCV (RBC) [Entitic vol] 87.0 fL 80-94 [facility] Hematocrit Auto (Bld) [Volum e fraction]Ordered By: Walter Becker on 02-11-2023 Hematocrit (Bld) [Volume fraction] 27.5 % 40-54 [facility] INR in Blood by Coagulation assayOrdered By: Walter Becker on 02-11-2023 INR Coag (Bld) [Relative time] 1.5 {INR} [facility] MCHC Auto (RBC) [Mass/Vol]Or dered By: Walter Becker on 02-11-2023 MCHC (RBC) [Mass/Vol] 31.6 g/dL 32-36 [facility] No Panel InformationOrdered By: Walter Becker on 02-11-2023 27.5 pg 27.0-32.0 [facility] 17.3 % 11.6-14.6 [facility] 55.7 fl 35.1-43.9 [facility] 18.2 SECONDS 11.7-14.9 [facility] 67 mL/min >60 [facility] 81 mL/min >60 [facility] 21.1 RATIO 10-20 [facility] 27.0 mmol/L 21.0-32.0 [facility] Platelets bldOrdered By: Crystal Becker on 02-11-2023 Platelets (Bld) [#/Vol] 200 10*3/uL 150-450 [facility] Serum or plasma calcium antoine urement (mass/volume)Ordered By: Walter Becker on 02-11-2023 Calcium [Mass/Vol] 8.7 mg/dL 8.5-10.1 [facility] Serum or plasma creatinine m easurement (mass/volume)Ordered By: Walter Becker on 02-11-2023 Creatinine [Mass/Vol] 1.14 mg/dL 0.70-1.30 [facility] Serum or plasma urea nitroge n measurement (mass/volume)Ordered By: Walter Becker on 02-11-2023 Urea nitrogen [Mass/Vol] 24 mg/dL 7-18 [facility] Thin prep Papanicolaou smear with manual screeningOrdered By: Walter Becker on 02-11-2023 Thin prep Papanicolaou smear with manual screening 5 5-15 [facility] Absolute lymphocyte countOrd ered By: Geremias Carey on 02-10-2023 Lymphocytes Auto (Unsp spec) [#/Vol] 0.46 10*3/uL 0.83-4.51 [facility] Bacteria identified Cx Nom ( U)Ordered By: Geremias Carey on 02-10-2023 Culture, urine Klebsiella pneumonia e sp pneum [facility] Culture, urine Klebsiella pneumonia e sp pneum [facility] Basophil percentageOrdered B y: Geremias Carey on 02-10-2023 Basophil percentage 1.9 mmol/L 0.4-2.0 [facility] Basophil percentage 25-50 SEEN /hpf 0-5 [facility] Basophil percentage 158 mg/dL 74-106 [facility] Basophil percentage 5.6 g/dL 6.4-8.2 [facility] Basophil percentage 0.90 mg/dL 0.20-1.00 [facility] Basophil percentage 136 mmol/L 136-145 [facility] Basophil percentage 3.7 mmol/L 3.5-5.1 [facility] Basophil percentage 103 mmol/L 98-107 [facility] Basophils (Bld) [#/Vol] 10.8 10*3/uL 4.4-11.0 [facility] Basophils (Bld) [#/Vol] 9.2 10*3/uL 2.0-7.7 [facility] Basophils/100 WBC (Bld) 84.8 % 47-70 [facility] Basophils/100 WBC (Bld) 0.2 % 0-5 [facility] Basophils/100 WBC (Bld) 0.1 % 0-1 [facility] Bilirubin Test strip Ql (U)O rdered By: Geremias Carey on 02-10-2023 Bilirubin Ql (U) Negative Negative [facility] Blood erythrocytes count (nu mber/volume)Ordered By: Geremias Carey on 02-10-2023 RBC (Bld) [#/Vol] 3.20 10*6/uL 4.6-6.2 [facility] Blood hemoglobin measurement (mass/volume)Ordered By: Geremias Carey on 02-10-2023 Hemoglobin (Bld) [Mass/Vol] 8.8 g/dL 13.0-16. 5 [facility] Blood lymphocytes/100 leukoc ytesOrdered By: Geremias Carey on 02-10-2023 Lymphocytes/100 WBC (Bld) 4.3 % 19-41 [facility] Blood manual differential co mment interpretation (narrative result)Ordered By: Geremias Carey on 02-10-2023 Manual differential comment Ori (Bld) [Interp] SCANNED [facility] Blood monocytes/100 leukocyt esOrdered By: Geremias Carey on 02-10-2023 Monocytes/100 WBC (Bld) 9.8 % 0-10 [facility] Blood platelet mean volumeOr dered By: Geremias Carey on 02-10-2023 Platelet mean volume (Bld) [Entitic vol] 9.3 fL 6.2-12.0 [facility] Determination of erythrocyte mean corpuscular volume (MCV)Ordered By: Geremias Carey on 02-10-2023 MCV (RBC) [Entitic vol] 87.8 fL 80-94 [facility] Direct bilirubinOrdered By: Geremias Carey on 02-10-2023 Bilirubin.direct [Mass/Vol] 0.43 mg/dL 0.00-0.3 0 [facility] Hematocrit Auto (Bld) [Volum e fraction]Ordered By: Geremias Carey on 02-10-2023 Hematocrit (Bld) [Volume fraction] 28.1 % 40-54 [facility] INR in Blood by Coagulation assayOrdered By: Geremias Carey on 02-10-2023 INR Coag (Bld) [Relative time] 1.4 {INR} [facility] Influenza virus A and B and SARS-CoV-2 (COVID-19) Ag panel - Upper respiratory specimOrdered By: Geremias Carey on 02-10-2023 SARS-CoV-2 (COVID-19) RNA ANGELY+probe Ql (Resp) [facility] SARS-CoV-2 (COVID-19) RNA ANGELY+probe Ql (Resp) [facility] Ketones Test strip Ql (U)Ord ered By: Geremias Carey on 02-10-2023 Ketones Ql (U) 5 mg/dl Negative [facility] MCHC Auto (RBC) [Mass/Vol]Or dered By: Geremias Carey on 02-10-2023 MCHC (RBC) [Mass/Vol] 31.3 g/dL 32-36 [facility] Mucus LM Ql (Urine sed)Order ed By: Geremias Carey on 02-10-2023 Mucus Ql (Urine sed) 0 SEEN /hpf [facility] Nitrite Test strip Ql (U)Ord ered By: Geremias Carey on 02-10-2023 Nitrite Ql (U) Negative Negative [facility] No Panel InformationOrdered By: Geremias Carey on 02-10-2023 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[facility] 27.5 pg 27.0-32.0 [facility] 17.3 % 11.6-14.6 [facility] 55.2 fl 35.1-43.9 [facility] 0.800 % 0.0-0.9 [facility] 0 % 0-5 [facility] 17.5 SECONDS 11.7-14.9 [facility] 42.1 Seconds 24.1-36.2 [facility] 70 mL/min >60 [facility] 85 mL/min >60 [facility] 66.18 ml/min [facility] 23.9 RATIO 10-20 [facility] 3.3 g/dL 2.2-4.2 [facility] 100 U/L 45-117 [facility] 18 U/L 16-61 [facility] 24.0 mmol/L 21.0-32.0 [facility] Platelets bldOrdered By: Luis Enrique Carey on 02-10-2023 Platelets (Bld) [#/Vol] 189 10*3/uL 150-450 [facility] Protein Test strip Ql (U)Ord ered By: Geremias Carey on 02-10-2023 Protein Ql (U) 100 mg/dl Negative [facility] Serum or plasma albumin antoine urement (mass/volume)Ordered By: Geremias Carey on 02-10-2023 Albumin [Mass/Vol] 2.3 g/dL 3.2-5.0 [facility] Serum or plasma calcium antoine urement (mass/volume)Ordered By: Geremias Carey on 02-10-2023 Calcium [Mass/Vol] 8.3 mg/dL 8.5-10.1 [facility] Serum or plasma creatinine m easurement (mass/volume)Ordered By: Geremias Carey on 02-10-2023 Creatinine [Mass/Vol] 1.09 mg/dL 0.70-1.30 [facility] Serum or plasma urea nitroge n measurement (mass/volume)Ordered By: Geremias Carey on 02-10-2023 Urea nitrogen [Mass/Vol] 26 mg/dL 7-18 [facility] Serum procalcitonin measurem entOrdered By: Geremias Carey on 02-10-2023 Procalcitonin [Mass/Vol] 1.43 ng/mL 0.00-0.09 [facility] Squamous epithelial cells de tection in urine sediment by light microscopyOrdered By: Geremias Carey on 02-10-2023 Epithelial cells.squamous LM Ql (Urine sed) 0 SEEN /hpf 0-5 [facility] Thin prep Papanicolaou smear with manual screeningOrdered By: Geremias Carey on 02-10-2023 Thin prep Papanicolaou smear with manual screening 10 U/L 15-37 [facility] Thin prep Papanicolaou smear with manual screening 9 5-15 [facility] Urine blood detectionOrdered By: Geremias Carey on 02-10-2023 RBC Ql (U) 250 /ul Negative [facility] RBC Ql (U) 25-50 SEEN /hpf 0-5 [facility] Urine clarityOrdered By: Luis Enrique Carey on 02-10-2023 Clarity (U) Sl. Cloudy Clear [facility] Urine color determinationOrd ered By: Geremias Carey on 02-10-2023 Color (U) Yellow Yellow [facility] Urine glucose detectionOrder ed By: Geremias Carey on 02-10-2023 Glucose Ql (U) Normal mg/dl Normal [facility] Urine leukocyte esterase det ection by dipstickOrdered By: Geremias Carey on 02-10-2023 Leukocyte esterase Test strip Ql (U) 500 /ul Negative [facility] Urine pHOrdered By: Geremias torrez on 02-10-2023 pH (U) 5.0 [pH] 5.0 - 8.0 [facility] Urine sediment bacteria coun t by microscopy (number/high power field)Ordered By: Geremias Carey on 02-10-2023 Bacteria LM.HPF (Urine sed) [#/Area] 4 /[HPF] None Seen [facility] Urine specific gravity measu rementOrdered By: Geremias Carey on 02-10-2023 Specific gravity (U) [Rel density] 1.015 1.002-1.03 0 [facility] Urobilinogen Auto test strip Ql (U)Ordered By: Geremias Carey on 02-10-2023 Urobilinogen Ql (U) Normal mg/dl Normal [facility] Blood hemoglobin measurement (mass/volume)Ordered By: Walter Becker on 02-07-2023 Hemoglobin (Bld) [Mass/Vol] 8.8 g/dL 13.0-16. 5 [facility] Hematocrit Auto (Bld) [Volum e fraction]Ordered By: Walter Becker on 02-07-2023 Hematocrit (Bld) [Volume fraction] 29.0 % 40-54 [facility] COVID19 virus antigen assay Ordered By: Caryl Mcdermott on 02-05-2023 SARS-CoV-2 (COVID-19) Ag IA.rapid Ql (Resp) [facility] SARS-CoV-2 (COVID-19) Ag IA.rapid Ql (Resp) [facility] Glucose Glucometer (BldC) [M ass/Vol]Ordered By: Caryl Mcdermott on 02-05-2023 Glucose [Mass/Vol] 163 mg/dL 74-106 [facility] Absolute lymphocyte countOrd ered By: Yisel Rendon on 02-04-2023 Lymphocytes Auto (Unsp spec) [#/Vol] 1.39 10*3/uL 0.83-4.51 [facility] Basophil percentageOrdered B y: Yisel Rendon on 02-04-2023 Basophil percentage 151 mg/dL 74-106 [facility] Basophil percentage 141 mmol/L 136-145 [facility] Basophil percentage 3.5 mmol/L 3.5-5.1 [facility] Basophil percentage 110 mmol/L 98-107 [facility] Basophils (Bld) [#/Vol] 8.1 10*3/uL 4.4-11.0 [facility] Basophils (Bld) [#/Vol] 5.8 10*3/uL 2.0-7.7 [facility] Basophils/100 WBC (Bld) 71.5 % 47-70 [facility] Basophils/100 WBC (Bld) 2.6 % 0-5 [facility] Basophils/100 WBC (Bld) 0.1 % 0-1 [facility] Blood erythrocytes count (nu mber/volume)Ordered By: Yisel Rendon on 02-04-2023 RBC (Bld) [#/Vol] 3.23 10*6/uL 4.6-6.2 [facility] Blood hemoglobin measurement (mass/volume)Ordered By: Yisel Rendon on 02-04-2023 Hemoglobin (Bld) [Mass/Vol] 8.8 g/dL 13.0-16. 5 [facility] Blood lymphocytes/100 leukoc ytesOrdered By: Yisel Rendon on 02-04-2023 Lymphocytes/100 WBC (Bld) 17.2 % 19-41 [facility] Blood monocytes/100 leukocyt esOrdered By: Yisel Rendon on 02-04-2023 Monocytes/100 WBC (Bld) 6.3 % 0-10 [facility] Blood platelet mean volumeOr dered By: Yisel Rendon on 02-04-2023 Platelet mean volume (Bld) [Entitic vol] 8.8 fL 6.2-12.0 [facility] Determination of erythrocyte mean corpuscular volume (MCV)Ordered By: Yisel Rendon on 02-04-2023 MCV (RBC) [Entitic vol] 89.5 fL 80-94 [facility] Hematocrit Auto (Bld) [Volum e fraction]Ordered By: Yisel Rendon on 02-04-2023 Hematocrit (Bld) [Volume fraction] 28.9 % 40-54 [facility] MCHC Auto (RBC) [Mass/Vol]Or dered By: Yisel Rendon on 02-04-2023 MCHC (RBC) [Mass/Vol] 30.4 g/dL 32-36 [facility] No Panel InformationOrdered By: Yisel Rendon on 02-04-2023 27.2 pg 27.0-32.0 [facility] 17.8 % 11.6-14.6 [facility] 56.6 fl 35.1-43.9 [facility] 2.300 % 0.0-0.9 [facility] 0 % 0-5 [facility] 67 mL/min >60 [facility] 81 mL/min >60 [facility] 63.83 ml/min [facility] 10.6 RATIO 10-20 [facility] 25.0 mmol/L 21.0-32.0 [facility] Platelets bldOrdered By: José Luis Rendon on 02-04-2023 Platelets (Bld) [#/Vol] 341 10*3/uL 150-450 [facility] Serum or plasma calcium antoine urement (mass/volume)Ordered By: Yisel Rendon on 02-04-2023 Calcium [Mass/Vol] 8.4 mg/dL 8.5-10.1 [facility] Serum or plasma creatinine m easurement (mass/volume)Ordered By: Yisel Rendon on 02-04-2023 Creatinine [Mass/Vol] 1.13 mg/dL 0.70-1.30 [facility] Serum or plasma urea nitroge n measurement (mass/volume)Ordered By: Yisel Rendon on 02-04-2023 Urea nitrogen [Mass/Vol] 12 mg/dL 7-18 [facility] Thin prep Papanicolaou smear with manual screeningOrdered By: Yisel Rendon on 02-04-2023 Thin prep Papanicolaou smear with manual screening 6 5-15 [facility] Blood band neutrophil count as percentage of total leukocytesOrdered By: Yisel Rendon on 01-31-2023 Band form neutrophils/100 WBC (Bld) 3 % 0-5 [facility] Blood eosinophils/100 leukoc ytesOrdered By: Yisel Rendon on 01-31-2023 Eosinophils/100 WBC (Bld) 2 % 0-5 [facility] Blood lymphocytes/100 leukoc ytesOrdered By: Yisel Rendon on 01-31-2023 Lymphocytes/100 WBC (Bld) 22 % 19-41 [facility] Blood metamyelocytes/100 yolis kocytesOrdered By: Yisel Rendon on 01-31-2023 Metamyelocytes/100 WBC (Bld) 1 % 0-1 [facility] Blood monocytes/100 leukocyt esOrdered By: Yisel Rendon on 01-31-2023 Monocytes/100 WBC (Bld) 5 % 0-10 [facility] Blood platelet adequacy dete ction by light microscopyOrdered By: Yisel Rendon on 01-31-2023 Platelets LM Ql (Bld) ADEQUATE ADEQ [facility] Blood polychromasia detectio n by light microscopyOrdered By: Yisel Rendon on 01-31-2023 Polychromasia LM Ql (Bld) RARE [facility] Blood segmented neutrophils/ 100 leukocytesOrdered By: Yisel Rendon on 01-31-2023 Segmented neutrophils/100 WBC (Bld) 64 % 47-70 [facility] No Panel InformationOrdered By: Yisel Rendon on 01-31-2023 3 % 0-0 [facility] Review by pathologistOrdered By: Yisel Rendon on 01-31-2023 Pathologist review Roi (Unsp spec) [Interp] Reviewed [facility] Total cell countOrdered By: Yisel Rendon on 01-31-2023 Cells counted Mol[employer] (Bld/Tiss) [#] 100 MANUAL DIFF [facility] Basophil percentageOrdered B y: Yisel Rendon on 01-30-2023 Basophil percentage 148 U/L 87-241 [facility] Blood manual differential co mment interpretation (narrative result)Ordered By: Yisel Rendon on 01-30-2023 Manual differential comment Ori (Bld) [Interp] SCANNED [facility] Hemoglobin in reticulocytes (mass per reticulocyte)Ordered By: Yisel Rendon on 01-30-2023 Hemoglobin (Reticulocytes) [Entitic mass] 22.8 pg 30-35 [facility] Hypochromatic red blood cell detectionOrdered By: Yisel Rendon on 01-30-2023 Hypochromia Ql (Bld) 1+ [facility] Iron measurement (mass/mass) Ordered By: Yisel Rendon on 01-30-2023 Iron (Unsp spec) [Mass/Mass] 28 ug/dL 65-175 [facility] No Panel InformationOrdered By: Yisel Rendon on 01-30-2023 RARE % [facility] 3.53 % 0.5-1.5 [facility] 40.30 % 3.00-15.90 [facility] 635 pg/mL 211-911 [facility] [facility] ug/dL 250-450 [facility] Serum or plasma ferritin hank surement (mass/volume)Ordered By: Yisel Rendon on 01-30-2023 Ferritin [Mass/Vol] 138 ng/mL 26-388 [facility] [place] Serum or plasma folate measu rement (mass/volume)Ordered By: Yisel Rendon on 01-30-2023 Folate [Mass/Vol] 4.60 ng/mL 3.1-55.4 [facility] Serum or plasma iron saturat ion measurement (mass fraction)Ordered By: Yisel Rendon on 01-30-2023 Iron saturation [Mass fraction] 16.9 % 15.0-55.0 [facility] No Panel InformationOrdered By: Yisel Rendon on 01-29-2023 RARE [facility] Vancomycin troughOrdered By: Karen Aly on 01-29-2023 Vancomycin trough [Mass/Vol] 7.8 ug/mL 5.0-15.0 [facility] Basophil percentageOrdered B y: Karen Aly on 01-28-2023 Basophil percentage 5.8 g/dL 6.4-8.2 [facility] [place] Basophil percentage 0.70 mg/dL 0.20-1.00 [facility] No Panel InformationOrdered By: Karen Aly on 01-28-2023 3.8 g/dL 2.2-4.2 [facility] 81 U/L 45-117 [facility] 85 U/L 16-61 [facility] Serum or plasma albumin antoine urement (mass/volume)Ordered By: Karen Aly on 01-28-2023 Albumin [Mass/Vol] 2.0 g/dL 3.2-5.0 [facility] Serum or plasma albumin/glob ulin mass ratioOrdered By: Karen Aly on 01-28-2023 Albumin/Globulin [Mass ratio] 0.5 {ratio} 0.9-2.4 [facility] Thin prep Papanicolaou smear with manual screeningOrdered By: [facility] Jermain on 01-28-2023 Thin prep Papanicolaou smear with manual screening 49 U/L 15-37 [facility] Absolute lymphocyte countOrd ered By: Syed Allen on 01-27-2023 Lymphocytes Auto (Unsp spec) [#/Vol] 1.35 10*3/uL 0.83-4.51 [facility] Basophil percentageOrdered B y: Karen Aly on 01-27-2023 Basophil percentage 2.6 mg/dL 2.5-4.9 [facility] Basophil percentageOrdered B y: Syed Allen on 01-27-2023 Basophils/100 WBC (Bld) 0.1 % 0-1 [facility] Bilirubin [Mass/Vol] 0.50 mg/dL 0.20-1.00 [facility] Comment on above: For patients on eltr ombopag therapy, use of Dimension [place] TBIL is not recommended. Chloride [Moles/Vol] 111 mmol/L 98-107 [facility] Eosinophils/100 WBC (Bld) 2.9 % 0-5 [facility] Glucose [Mass/Vol] 215 mg/dL 74-106 [facility] Comment on above: Glucose result great er than or equal to 200 mg/dLsuggests DIABETES MELLITUS per A.D.A. criteria. Neutrophils (Bld) [#/Vol] 8.0 10*3/uL 2.0-7.7 [facility] Neutrophils/100 WBC (Bld) 73.8 % 47-70 [facility] Potassium [Moles/Vol] 4.0 mmol/L 3.5-5.1 [facility] Protein [Mass/Vol] 5.3 g/dL 6.4-8.2 [facility] Sodium [Moles/Vol] 140 mmol/L 136-145 [facility] WBC (Bld) [#/Vol] 10.9 10*3/uL 4.4-11.0 [facility] Blood erythrocytes count (nu mber/volume)Ordered By: Syed Allen on 01-27-2023 RBC (Bld) [#/Vol] 2.91 10*6/uL 4.6-6.2 [facility] Blood hemoglobin measurement (mass/volume)Ordered By: Syed Allen on 01-27-2023 Hemoglobin (Bld) [Mass/Vol] 8.2 g/dL 13.0-16. 5 [facility] Blood lymphocytes/100 leukoc ytesOrdered By: Syed Allen on 01-27-2023 Lymphocytes/100 WBC (Bld) 12.4 % 19-41 [facility] Blood monocytes/100 leukocyt esOrdered By: Syed Allen on 01-27-2023 Monocytes/100 WBC (Bld) 8.2 % 0-10 [facility] Blood platelet mean volumeOr dered By: Syed Allen on 01-27-2023 Platelet mean volume (Bld) [Entitic vol] 9.9 fL 6.2-12.0 [facility] Determination of erythrocyte mean corpuscular volume (MCV)Ordered By: Syed Allen on 01-27-2023 MCV (RBC) [Entitic vol] 88.0 fL 80-94 [facility] Hematocrit Auto (Bld) [Volum e fraction]Ordered By: Syed Allen on 01-27-2023 Hematocrit (Bld) [Volume fraction] 25.6 % 40-54 [facility] INR in Blood by Coagulation assayOrdered By: Syed Allen on 01-27-2023 INR Coag (Bld) [Relative time] 1.6 {INR} [facility] Laboratory - Chemistry and C hemistry - challengeOrdered By: Syed Allen on 01-27-2023 ALP [Catalytic activity/Vol] 78 U/L 45-117 [facility] ALT [Catalytic activity/Vol] 81 U/L 16-61 [facility] CO2 [Moles/Vol] 25.0 mmol/L 21.0-32.0 [facility] Globulin (S) [Mass/Vol] 3.5 g/dL 2.2-4.2 [facility] Lipase [Catalytic activity/Vol] 233 U/L 13-75 [facility] Comment on above: Please note:LIPASE r evised reference range effective 22. New Lipase methodology. Expected to produce lower values than the previous assay method. NEW Reference Range: 13 - 75 U/L Urea nitrogen/Creatinine [Mass ratio] 20.4 mg/mg 10-20 [facility] Laboratory - CoagulationOrde red By: Syed Allen on 01-27-2023 PT Coag (PPP) [Time] 19.4 s 11.7-14.9 [facility] Laboratory - Hematology and Cell countsOrdered By: Syed Allen on 01-27-2023 Erythrocyte distribution width (RBC) [Entitic vol] 49.3 fL 35.1-43.9 [facility] Erythrocyte distribution width (RBC) [Ratio] 15.5 % 11.6-14.6 [facility] Immature granulocytes/100 WBC (Bld) 2.600 % 0.0-0.9 [facility] Comment on above: IG% - Immature Granu locytes (promyelocytes, myelocytes and metamyelocytes) > 1% indicates that a LEFT SHIFT is Present. MCH (RBC) [Entitic mass] 28.2 pg 27.0-32.0 [facility] Nucleated RBC/100 WBC (Bld) [Ratio] 0.2 % 0-5 [facility] MCHC Auto (RBC) [Mass/Vol]Or dered By: Syed Allen on 01-27-2023 MCHC (RBC) [Mass/Vol] 32.0 g/dL 32-36 [facility] No Panel InformationOrdered By: Karen Aly on 01-27-2023 Negative Negative [facility] 1.7 mg/dL 1.6-2.6 [facility] No Panel InformationOrdered By: Syed Allen on 01-27-2023 Estimated Creatinine Clearance Calc 50.80 ml/min [facility] Estimated GFR (MDRD) Amer 63 mL/min >60 [facility] Comment on above: GFR Calc Estimated GFR (MDRD) Non-Af Amer 52 mL/min >60 [facility] Comment on above: Non- GFR Calc 19.4 SECONDS 11.7-14.9 [facility] 233 U/L 13-75 [facility] Platelets bldOrdered By: Glenroy Allen on 01-27-2023 Platelets (Bld) [#/Vol] 259 10*3/uL 150-450 [facility] Serum or plasma albumin antoine urement (mass/volume)Ordered By: Syed Allen on 01-27-2023 Albumin [Mass/Vol] 1.8 g/dL 3.2-5.0 [facility] Serum or plasma albumin/glob ulin mass ratioOrdered By: Syed Allen on 01-27-2023 Albumin/Globulin [Mass ratio] 0.5 {ratio} 0.9-2.4 [facility] Serum or plasma calcium antoine urement (mass/volume)Ordered By: Syed Allen on 01-27-2023 Calcium [Mass/Vol] 8.3 mg/dL 8.5-10.1 [facility] Serum or plasma creatinine m easurement (mass/volume)Ordered By: Syed Allen on 01-27-2023 Creatinine [Mass/Vol] 1.42 mg/dL 0.70-1.30 [facility] Comment on above: The validity of the calculated GFR & GFRAA in patients over 70 years has not been determined. Clinical correlation is essential. Serum or plasma urea nitroge n measurement (mass/volume)Ordered By: Syed Allen on 01-27-2023 Urea nitrogen [Mass/Vol] 29 mg/dL 7-18 [facility] Serum procalcitonin measurem entOrdered By: Karen Aly on 01-27-2023 Procalcitonin [Mass/Vol] 0.12 ng/mL 0.00-0.09 [facility] Thin prep Papanicolaou smear with manual screeningOrdered By: Syed Allen on 01-27-2023 Thin prep Papanicolaou smear with manual screening 68 U/L 15-37 [facility] Thin prep Papanicolaou smear with manual screening 4 5-15 [facility] Urine Legionella pneumophila antigen detectionOrdered By: Karen Aly on 01-27-2023 L. pneumophila Ag Ql (U) [facility] Absolute lymphocyte countOrd ered By: Ryan Tinoco on 01-26-2023 Lymphocytes Auto (Unsp spec) [#/Vol] 0.69 10*3/uL 0.83-4.51 [facility] Basophil percentageOrdered B y: Karen Aly on 01-26-2023 Basophil percentage 2.4 mg/dL 2.5-4.9 [facility] Basophil percentageOrdered B y: Ryan Tinoco on 01-26-2023 Basophil percentage 235 mg/dL 74-106 [facility] Basophil percentage 143 mmol/L 136-145 [facility] Basophil percentage 3.8 mmol/L 3.5-5.1 [facility] Basophil percentage 114 mmol/L 98-107 [facility] Basophils (Bld) [#/Vol] 8.5 10*3/uL 4.4-11.0 [facility] Basophils (Bld) [#/Vol] 6.7 10*3/uL 2.0-7.7 [facility] Basophils/100 WBC (Bld) 0.1 % 0-1 [facility] Basophils/100 WBC (Bld) 78.4 % 47-70 [facility] Basophils/100 WBC (Bld) 1.6 % 0-5 [facility] Chloride [Moles/Vol] 114 mmol/L 98-107 [facility] Eosinophils/100 WBC (Bld) 1.6 % 0-5 [facility] Glucose [Mass/Vol] 235 mg/dL 74-106 [facility] Comment on above: Glucose result great er than or equal to 200 mg/dLsuggests DIABETES MELLITUS per A.D.A. criteria. Neutrophils (Bld) [#/Vol] 6.7 10*3/uL 2.0-7.7 [facility] Neutrophils/100 WBC (Bld) 78.4 % 47-70 [facility] Potassium [Moles/Vol] 3.8 mmol/L 3.5-5.1 [facility] Sodium [Moles/Vol] 143 mmol/L 136-145 [facility] WBC (Bld) [#/Vol] 8.5 10*3/uL 4.4-11.0 [facility] Blood erythrocytes count (nu mber/volume)Ordered By: Ryan Tinoco on 01-26-2023 RBC (Bld) [#/Vol] 3.06 10*6/uL 4.6-6.2 [facility] Blood hemoglobin measurement (mass/volume)Ordered By: Ryan Tinoco on 01-26-2023 Hemoglobin (Bld) [Mass/Vol] 8.6 g/dL 13.0-16. 5 [facility] Blood lymphocytes/100 leukoc ytesOrdered By: Ryan Tinoco on 01-26-2023 Lymphocytes/100 WBC (Bld) 8.1 % 19-41 [facility] Blood monocytes/100 leukocyt esOrdered By: Ryan Tinoco on 01-26-2023 Monocytes/100 WBC (Bld) 9.6 % 0-10 [facility] Blood platelet mean volumeOr dered By: Ryan Tinoco on 01-26-2023 Platelet mean volume (Bld) [Entitic vol] 9.9 fL 6.2-12.0 [facility] COVID-19 virus antigen assay Ordered By: Ryan Tinoco on 01-26-2023 SARS-CoV-2 (COVID-19) Ag IA.rapid Ql (Resp) [facility] SARS-CoV-2 (COVID-19) Ag IA.rapid Ql (Resp) [facility] Determination of erythrocyte mean corpuscular volume (MCV)Ordered By: Ryan Tinoco on 01-26-2023 MCV (RBC) [Entitic vol] 88.6 fL 80-94 [facility] Glucose Glucometer (BldC) [M ass/Vol]Ordered By: Ryan Tinoco on 01-26-2023 Glucose [Mass/Vol] 230 mg/dL 74-106 [facility] Comment on above: MANAGEMENT OF PATIEN T CARE PER NURSING PROTOCOL Hematocrit Auto (Bld) [Volum e fraction]Ordered By: Ryan Tinoco on 01-26-2023 Hematocrit (Bld) [Volume fraction] 27.1 % 40-54 [facility] Laboratory - Chemistry and C hemistry - challengeOrdered By: Ryan Tinoco on 01-26-2023 CO2 [Moles/Vol] 23.0 mmol/L 21.0-32.0 [facility] Urea nitrogen/Creatinine [Mass ratio] 18.8 mg/mg 10-20 [facility] Laboratory - Chemistry and C hemistry - challengeOrdered By: Karen Aly on 01-26-2023 Magnesium [Mass/Vol] 1.8 mg/dL 1.6-2.6 [facility] Laboratory - Hematology and Cell countsOrdered By: Ryan Tinoco on 01-26-2023 Erythrocyte distribution width (RBC) [Entitic vol] 50.6 fL 35.1-43.9 [facility] Erythrocyte distribution width (RBC) [Ratio] 15.9 % 11.6-14.6 [facility] Immature granulocytes/100 WBC (Bld) 2.200 % 0.0-0.9 [facility] Comment on above: IG% - Immature Granu locytes (promyelocytes, myelocytes and metamyelocytes) > 1% indicates that a LEFT SHIFT is Present. MCH (RBC) [Entitic mass] 28.1 pg 27.0-32.0 [facility] Nucleated RBC/100 WBC (Bld) [Ratio] 0.5 % 0-5 [facility] MCHC Auto (RBC) [Mass/Vol]Or dered By: Ryan Tinoco on 01-26-2023 MCHC (RBC) [Mass/Vol] 31.7 g/dL 32-36 [facility] No Panel InformationOrdered By: Ryan Tinoco on 01-26-2023 Estimated Creatinine Clearance Calc 48.41 ml/min [facility] Estimated GFR (MDRD) Amer 59 mL/min >60 [facility] Comment on above: GFR Calc Estimated GFR (MDRD) Non-Af Amer 49 mL/min >60 [facility] Comment on above: Non- GFR Calc 28.1 pg 27.0-32.0 [facility] 15.9 % 11.6-14.6 [facility] 50.6 fl 35.1-43.9 [facility] 2.200 % 0.0-0.9 [facility] 0.5 % 0-5 [facility] 49 mL/min >60 [facility] 59 mL/min >60 [facility] 48.41 ml/min [facility] 18.8 RATIO 10-20 [facility] 23.0 mmol/L 21.0-32.0 [facility] No Panel InformationOrdered By: Karen Aly on 01-26-2023 1.8 mg/dL 1.6-2.6 [facility] Platelets bldOrdered By: Jaziel Tinoco on 01-26-2023 Platelets (Bld) [#/Vol] 217 10*3/uL 150-450 [facility] Serum or plasma calcium antoine urement (mass/volume)Ordered By: Ryan Tinoco on 01-26-2023 Calcium [Mass/Vol] 8.5 mg/dL 8.5-10.1 [facility] Serum or plasma creatinine m easurement (mass/volume)Ordered By: Ryan Tinoco on 01-26-2023 Creatinine [Mass/Vol] 1.49 mg/dL 0.70-1.30 [facility] Comment on above: The validity of the calculated GFR & GFRAA in patients over 70 years has not been determined. Clinical correlation is essential. Serum or plasma urea nitroge n measurement (mass/volume)Ordered By: Ryan Tinoco on 07-15-2023 Urea nitrogen [Mass/Vol] 28 mg/dL 7-18 [facility] Thin prep Papanicolaou smear with manual screeningOrdered By: Ryan Tinoco on 01-26-2023 Thin prep Papanicolaou smear with manual screening 6 - [facility] INR in Blood by Coagulation assayOrdered By: Ryan Tinoco on 01-25-2023 INR Coag (Bld) [Relative time] 1.6 {INR} [facility] Laboratory - CoagulationOrde red By: Ryan Tinoco on 01-25-2023 PT Coag (PPP) [Time] 19.1 s 11.7-14.9 [facility] No Panel InformationOrdered By: Ryan Tinoco on 01-25-2023 19.1 SECONDS 11.7-14.9 [facility] Albumin Elph [Mass/Vol]Order ed By: Liu Hackett on 01-22-2023 Albumin [Mass/Vol] 2.5 g/dL 2.9-4.4 [facility] Aldolase ser/plasOrdered By: Liu Hackett on 01-22-2023 Aldolase [Catalytic activity/Vol] 1.5 mU/mL 3.3-10.3 [facility] Comment on above: Performed at: [facility] [address] [id number] Director: Ernie Jacob PhD, Phone: [phone] at: [facility] [id number] Director: Lindsay Kearns MD, Phone: [phone] Atypical perinuclear antineu trophil cytoplasmic antibodies measurementOrdered By: Liu Hackett on 01-22-2023 Neutrophil cytoplasmic Ab.perinuclear.atypical IF (S) [Titer] <1:20 titer Neg:<1:20 [facility] Comment on above: The atypical pANCA p attern has been observed in asignificant percentage of patients with ulcerative colitis,primary sclerosing cholangitis and autoimmune hepatitis. Basophil percentageOrdered B y: Liu Hackett on 01-22-2023 Basophil percentage < 0.2 AI 0.0-0.9 [facility] Basophil percentage 3.4 mmol/L 0.4-2.0 [facility] Basophil percentage 136 U/L 87-241 [facility] Lactate [Moles/Vol] 3.4 mmol/L 0.4-2.0 [facility] Comment on above: Critical Result(s) C alled at: 12:30:42 01/22/2023 by: Aruna Morales. To Dagoberto Martin RN (ICU). Results read back by same. LDH [Catalytic activity/Vol] 136 U/L 87-241 [facility] Blood polychromasia detectio n by light microscopyOrdered By: Jesus Burnham on 01-22-2023 Polychromasia LM Ql (Bld) 1+ [facility] Interpretation of serum or p lasma protein pattern by immunofixation (narrative resultOrdered By: Liu aHckett on 01-22-2023 Protein Fractions Immunofixation Ori [Interp] See comment [facility] Comment on above: NOT OBSERVED Laboratory - Chemistry and C hemistry - challengeOrdered By: Liu Hackett on 01-22-2023 CK [Catalytic activity/Vol] 31 U/L 39-308 [facility] Laboratory - Hematology and Cell countsOrdered By: Jesus Burnham on 01-22-2023 Anisocytosis Ql (Bld) 1+ [facility] No Panel InformationOrdered By: Liu Hackett on 01-22-2023 Addendum Document Comment . [facility] Comment on above: Protein electrophore sis scan will follow via computer,mail, or embedded processor delivery. Centromere B Antibody <0.2 AI 0.0-0.9 [facility] Immunoglobulin E 399 IU/mL 6-495 [facility] Immunoglobulin G4 8 mg/dL 2-96 [facility] CLERGY MEMBER Antibody <0.2 AI 0.0-0.9 [facility] 31 U/L 39-308 [facility] 8 mg/dL 2-96 [facility] 399 IU/mL 6-495 [facility] <0.2 AI 0.0-0.9 [facility] No Panel InformationOrdered By: Jesus Burnham on 01-22-2023 1+ [facility] Review by pathologistOrdered By: Jesus Burnham on 01-22-2023 Pathologist review Ori (Unsp spec) [Interp] Reviewed [facility] Comment on above: Previous reported re sult: Corie sr Edited by: KEN on 01/23/23:1008Neutrophilic leukocytosis with left shift.Normocytic anemia.Clinical correlation necessary.Evaristo Dela Cruz M.D. 01/23/23 AMENDED REPORT 01/23/23 1008 PATH REV previously reported as: Corie sr Serum DNA double strand anti body assay (units/volume)Ordered By: Liu Hackett on 01-22-2023 DNA double strand Ab Qn (S) [IU]/mL 0-9 [facility] Comment on above: Negative <5 Equivoca l 5 - 9 Positive >9 Serum IgG subclass 1 measure ment (mass/volume)Ordered By: Liu Hackett on 01-22-2023 IgG subclass 1 (S) [Mass/Vol] 237 mg/dL 248-810 [facility] Serum IgG subclass 2 measure ment (mass/volume)Ordered By: Liu Hackett on 01-22-2023 IgG subclass 2 (S) [Mass/Vol] 115 mg/dL 130-555 [facility] Serum IgG subclass 3 measure ment (mass/volume)Ordered By: Liu Hackett on 01-22-2023 IgG subclass 3 (S) [Mass/Vol] 20 mg/dL 15-102 [facility] Serum Kelsey-1 antibody assay (u nits/volume)Ordered By: Liu Hackett on 01-22-2023 Kelsey-1 extractable nuclear Ab Qn (S) <0.2 AI 0.0-0.9 [facility] Serum Scl-70 extractable nuc lear antibody assay (units/volume)Ordered By: Liu Hackett on 01-22-2023 SCL-70 extractable nuclear Ab Qn (S) <0.2 AI 0.0-0.9 [facility] Serum Martinez extractable nucl ear antibody detectionOrdered By: Liu Hackett on 01-22-2023 Martinez extractable nuclear Ab Ql (S) <0.2 AI 0.0-0.9 [facility] Serum [id number] measu rement by electrophoresisOrdered By: Liu Hackett on 01-22-2023 Alpha 1 globulin Elph [Mass/Vol] 0.2 g/dL 0.0-0.4 [facility] Alpha 1 globulin Elph [Mass/Vol] 0.6 g/dL 0.4-1.0 [facility] Serum classic neutrophil cyt oplasmic antibody assay (units/volume)Ordered By: Liu Hackett on 01-22-2023 Neutrophil cytoplasmic Ab.classic Qn (S) <1:20 titer Neg:<1:20 [facility] Serum globulin measurement ( mass/volume)Ordered By: Liu Hackett on 01-22-2023 Globulin (S) [Mass/Vol] 1.9 g/dL 2.2-3.9 [facility] Serum or plasma IgA measurem ent (mass/volume)Ordered By: Liu Hackett on 01-22-2023 IgA [Mass/Vol] 194 mg/dL 61-437 [facility] Serum or plasma IgG measurem ent (mass/volume)Ordered By: Liu Hackett on 01-22-2023 IgG [Mass/Vol] 417 mg/dL 603-1613 [facility] IgG [Mass/Vol] Not Reportable [facility] Serum or plasma IgM measurem ent (mass/volume)Ordered By: Liu Hackett on 01-22-2023 IgM [Mass/Vol] 15 mg/dL 15-143 [facility] Comment on above: Result confirmed on concentration. Serum or plasma beta globuli n measurement by electrophoresis (mass/volume)Ordered By: Liu Hackett on 01-22-2023 Beta globulin Elph [Mass/Vol] 0.7 g/dL 0.7-1.3 [facility] Serum or plasma gamma globul in measurement by electrophoresis (mass/volume)Ordered By: Liu Hackett on 01-22-2023 Gamma globulin Elph [Mass/Vol] 0.3 g/dL 0.4-1.8 [facility] Serum or plasma immunoelectr ophoresis interpretation (nominal result)Ordered By: Liu Hackett on 01-22-2023 Interpretation IEP [Interp] Comment . [facility] Comment on above: No monoclonality det ected. Serum perinuclear neutrophil cytoplasmic antibody titer by immunofluorescenceOrdered By: Liu Hackett on 01-22-2023 Neutrophil cytoplasmic Ab.perinuclear IF (S) [Titer] <1:20 titer Neg:<1:20 [facility] Comment on above: The presence of posi tive fluorescence exhibiting P-ANCA orC-ANCA patterns alone is not specific for the diagnosis ofWegener's Granulomatosis (WG) or microscopic polyangiitis.Decisions about treatment should not be based solely onANCA IFA results. The [employer] ANCA [employer] Consensusrecommends follow up testing of positive sera with both AK-3 and MPO-ANCA enzyme immunoassays. As many as 5% serumsamples are positive only by EIA. Ref. AM J Clin Swojmn1071;111:507-513. Thin prep Papanicolaou smear with manual screeningOrdered By: Liu Hackett on 01-22-2023 Thin prep Papanicolaou smear with manual screening 1.4 0.7-1.7 [facility] Total protein bloodOrdered B y: Liu Hackett on 01-22-2023 Protein [Mass/Vol] 4.4 g/dL 6.0-8.5 [facility] Absolute lymphocyte countOrd ered By: Dandy Sauer on 01-21-2023 Lymphocytes Auto (Unsp spec) [#/Vol] 1.69 10*3/uL 0.83-4.51 [facility] Basophil percentageOrdered B y: Dandy Sauer on 01-21-2023 Basophil percentage 0-5 SEEN /hpf 0-5 [facility] Basophil percentage 5.4 g/dL 6.4-8.2 [facility] Basophil percentage 0.30 mg/dL 0.20-1.00 [facility] Basophils/100 WBC (Bld) 0.3 % 0-1 [facility] Bilirubin [Mass/Vol] 0.30 mg/dL 0.20-1.00 [facility] Comment on above: For patients on eltr ombopag therapy, use of Dimension [place] TBIL is not recommended. Chloride [Moles/Vol] 109 mmol/L 98-107 [facility] Eosinophils/100 WBC (Bld) 0.0 % 0-5 [facility] Glucose [Mass/Vol] 248 mg/dL 74-106 [facility] Comment on above: Glucose result great er than or equal to 200 mg/dLsuggests DIABETES MELLITUS per A.D.A. criteria. Lactate [Moles/Vol] 7.9 mmol/L 0.4-2.0 [facility] Comment on above: Critical Result(s) C alled at: 09:48:37 01/21/2023 by: Aruna Morales to Shwetha. Results read back by same. Neutrophils (Bld) [#/Vol] 19.7 10*3/uL 2.0-7.7 [facility] Neutrophils/100 WBC (Bld) 87.8 % 47-70 [facility] Potassium [Moles/Vol] 5.2 mmol/L 3.5-5.1 [facility] Protein [Mass/Vol] 5.4 g/dL 6.4-8.2 [facility] Sodium [Moles/Vol] 138 mmol/L 136-145 [facility] WBC (Bld) [#/Vol] 22.4 10*3/uL 4.4-11.0 [facility] Bilirubin Test strip Ql (U)O rdered By: Dandy Sauer on 01-21-2023 Bilirubin Ql (U) 1 mg/dL Negative [facility] Comment on above: COLOR OF URINE MAY A FFECT DIPSTICK RESULTS. Blood erythrocytes count (nu mber/volume)Ordered By: Dandy Sauer on 01-21-2023 RBC (Bld) [#/Vol] 3.96 10*6/uL 4.6-6.2 [facility] Blood hemoglobin measurement (mass/volume)Ordered By: Dandy Sauer on 01-21-2023 Hemoglobin (Bld) [Mass/Vol] 10.7 g/dL 13.0-16. 5 [facility] Blood lymphocytes/100 leukoc ytesOrdered By: Dandy Sauer on 01-21-2023 Lymphocytes/100 WBC (Bld) 7.5 % 19-41 [facility] Blood monocytes/100 leukocyt esOrdered By: Dandy Sauer on 01-21-2023 Monocytes/100 WBC (Bld) 2.4 % 0-10 [facility] Blood platelet mean volumeOr dered By: Dandy Sauer on 01-21-2023 Platelet mean volume (Bld) [Entitic vol] 10.7 fL 6.2-12.0 [facility] Determination of erythrocyte mean corpuscular volume (MCV)Ordered By: Dandy Sauer on 01-21-2023 MCV (RBC) [Entitic vol] 86.6 fL 80-94 [facility] Hematocrit Auto (Bld) [Volum e fraction]Ordered By: Dandy Sauer on 01-21-2023 Hematocrit (Bld) [Volume fraction] 34.3 % 40-54 [facility] INR in Blood by Coagulation assayOrdered By: Dandy Sauer on 01-21-2023 INR Coag (Bld) [Relative time] 4.2 {INR} [facility] Comment on above: CRITICAL VALUE VERIF IED. CALLED TO EVANS MARI (ER)01/21/23 1011 Zachary Gabriel.RESULTS READ BACK BY SAME. Ketones Test strip Ql (U)Ord ered By: Dandy Sauer on 01-21-2023 Ketones Ql (U) 15 mg/dl Negative [facility] Laboratory - Chemistry and C hemistry - challengeOrdered By: Dandy Sauer on 01-21-2023 ALP [Catalytic activity/Vol] 76 U/L 45-117 [facility] ALT [Catalytic activity/Vol] 25 U/L 16-61 [facility] CO2 [Moles/Vol] 12.0 mmol/L 21.0-32.0 [facility] Globulin (S) [Mass/Vol] 2.7 g/dL 2.2-4.2 [facility] Urea nitrogen/Creatinine [Mass ratio] 62.8 mg/mg 10-20 [facility] Laboratory - CoagulationOrde red By: Dandy Sauer on 01-21-2023 PT Coag (PPP) [Time] 41.4 s 11.7-14.9 [facility] Laboratory - Hematology and Cell countsOrdered By: Dandy Sauer on 01-21-2023 Erythrocyte distribution width (RBC) [Entitic vol] 46.6 fL 35.1-43.9 [facility] Erythrocyte distribution width (RBC) [Ratio] 14.7 % 11.6-14.6 [facility] Immature granulocytes/100 WBC (Bld) 2.000 % 0.0-0.9 [facility] Comment on above: IG% - Immature Granu locytes (promyelocytes, myelocytes and metamyelocytes) > 1% indicates that a LEFT SHIFT is Present. MCH (RBC) [Entitic mass] 27.0 pg 27.0-32.0 [facility] Nucleated RBC/100 WBC (Bld) [Ratio] 0 % 0-5 [facility] Lower GI hemoglobin IA Ql (S tl)Ordered By: Dandy Sauer on 01-21-2023 Stool gastrointestinal hemoglobin detection by immunologic method Positive [facility] Stool Occult Blood (KLAUS) Positive [facility] Stool gastrointestinal hemoglobin detection by immunologic method Positive [facility] MCHC Auto (RBC) [Mass/Vol]Or dered By: Dandy Sauer on 01-21-2023 MCHC (RBC) [Mass/Vol] 31.2 g/dL 32-36 [facility] Mucus LM Ql (Urine sed)Order ed By: aDndy Sauer on 01-21-2023 Mucus Ql (Urine sed) 0 SEEN /hpf [facility] Nitrite Test strip Ql (U)Ord ered By: Dandy Sauer on 01-21-2023 Nitrite Ql (U) Negative Negative [facility] No Panel InformationOrdered By: Dandy Sauer on 01-21-2023 Estimated Creatinine Clearance Calc 36.25 ml/min [facility] Estimated GFR (MDRD) Amer 42 mL/min >60 [facility] Comment on above: GFR Calc Estimated GFR (MDRD) Non-Af Amer 35 mL/min >60 [facility] Comment on above: Non- GFR Calc Troponin I High Sensitivity 23 pg/mL 3.0-78.0 [facility] Comment on above: Please Note: New Thania t Units and Gender Specific Reference Ranges. For more information see Policy Stat Procedure [place] High Sensitivity Troponin (TNIH) and attachments. 23 pg/mL 3.0-78.0 [facility] 76 U/L 45-117 [facility] 25 U/L 16-61 [facility] Platelets bldOrdered By: Renetta Sauer on 01-21-2023 Platelets (Bld) [#/Vol] 389 10*3/uL 150-450 [facility] Protein Test strip Ql (U)Ord ered By: Dandy Sauer on 01-21-2023 Protein Ql (U) 15 mg/dl Negative [facility] Serum or plasma albumin antoine urement (mass/volume)Ordered By: Dandy Sauer on 01-21-2023 Albumin [Mass/Vol] 2.7 g/dL 3.2-5.0 [facility] Serum or plasma albumin/glob ulin mass ratioOrdered By: Dandy Sauer on 01-21-2023 Albumin/Globulin [Mass ratio] 1.0 {ratio} 0.9-2.4 [facility] Serum or plasma calcium antoine urement (mass/volume)Ordered By: Dandy Sauer on 01-21-2023 Calcium [Mass/Vol] 9.7 mg/dL 8.5-10.1 [facility] Serum or plasma creatinine m easurement (mass/volume)Ordered By: Dandy Sauer on 01-21-2023 Creatinine [Mass/Vol] 1.99 mg/dL 0.70-1.30 [facility] Comment on above: The validity of the calculated GFR & GFRAA in patients over 70 years has not been determined. Clinical correlation is essential. Serum or plasma urea nitroge n measurement (mass/volume)Ordered By: Dandy Sauer on 01-21-2023 Urea nitrogen [Mass/Vol] 125 mg/dL 7-18 [facility] Comment on above: Critical Result(s) C alled at: 09:53:00 01/21/2023 by: Aruna Tadeo. Results read back by same. Squamous epithelial cells de tection in urine sediment by light microscopyOrdered By: Dandy Sauer on 01-21-2023 Epithelial cells.squamous LM Ql (Urine sed) 0-5 SEEN /hpf 0-5 [facility] Thin prep Papanicolaou smear with manual screeningOrdered By: Dandy Sauer on 01-21-2023 Thin prep Papanicolaou smear with manual screening 9 U/L 15-37 [facility] Thin prep Papanicolaou smear with manual screening 17 5-15 [facility] Urine blood detectionOrdered By: Dandy Sauer on 01-21-2023 RBC Ql (U) Negative Negative [facility] RBC Ql (U) 0 SEEN /hpf 0-5 [facility] Urine clarityOrdered By: Renetta Sauer on 01-21-2023 Clarity (U) Clear Clear [facility] Urine color determinationOrd ered By: Dandy Sauer on 01-21-2023 Color (U) Yellow Yellow [facility] Urine glucose detectionOrder ed By: Dandy Sauer on 01-21-2023 Glucose Ql (U) 100 mg/dl Normal [facility] Urine leukocyte esterase det ection by dipstickOrdered By: Dandy Sauer on 01-21-2023 Leukocyte esterase Test strip Ql (U) Negative Negative [facility] Urine pHOrdered By: Dandy Sauer on 01-21-2023 pH (U) 5.0 [pH] 5.0 - 8.0 [facility] Urine sediment bacteria coun t by microscopy (number/high power field)Ordered By: Dandy Sauer on 01-21-2023 Bacteria LM.HPF (Urine sed) [#/Area] 0 /[HPF] None Seen [facility] Urine specific gravity measu rementOrdered By: Dandy Sauer on 01-21-2023 Specific gravity (U) [Rel density] 1.020 1.002-1.03 0 [facility] Urobilinogen Auto test strip Ql (U)Ordered By: Dandy Sauer on 01-21-2023 Urobilinogen Ql (U) Normal mg/dl Normal [facility] Glucose Glucometer (BldC) [M ass/Vol]Ordered By: Gabriel Giraldo on 01-08-2023 Glucose [Mass/Vol] 201 mg/dL 74-106 [facility] Comment on above: MANAGEMENT OF PATIEN T CARE PER NURSING PROTOCOL Absolute lymphocyte countOrd ered By: Karen Aly on 01-07-2023 Lymphocytes Auto (Unsp spec) [#/Vol] 1.83 10*3/uL 0.83-4.51 [facility] Basophil percentageOrdered B y: Karen Aly on 01-07-2023 Basophil percentage 121 mg/dL 74-106 [facility] Basophil percentage 6.0 g/dL 6.4-8.2 [facility] Basophil percentage 0.70 mg/dL 0.20-1.00 [facility] Basophil percentage 138 mmol/L 136-145 [facility] Basophil percentage 4.1 mmol/L 3.5-5.1 [facility] Basophil percentage 106 mmol/L 98-107 [facility] Basophils (Bld) [#/Vol] 9.3 10*3/uL 4.4-11.0 [facility] Basophils (Bld) [#/Vol] 6.4 10*3/uL 2.0-7.7 [facility] Basophils/100 WBC (Bld) 0.6 % 0-1 [facility] Basophils/100 WBC (Bld) 69.0 % 47-70 [facility] Basophils/100 WBC (Bld) 2.4 % 0-5 [facility] Bilirubin [Mass/Vol] 0.70 mg/dL 0.20-1.00 [facility] Comment on above: For patients on eltr ombopag therapy, use of Dimension [place] TBIL is not recommended. Chloride [Moles/Vol] 106 mmol/L 98-107 [facility] Eosinophils/100 WBC (Bld) 2.4 % 0-5 [facility] Glucose [Mass/Vol] 121 mg/dL 74-106 [facility] Comment on above: Fasting Glucose resu lt from 100 to 125 mg/dL suggests IMPAIRED HOMEOSTASIS per A.D.A. criteria. Neutrophils (Bld) [#/Vol] 6.4 10*3/uL 2.0-7.7 [facility] Neutrophils/100 WBC (Bld) 69.0 % 47-70 [facility] Potassium [Moles/Vol] 4.1 mmol/L 3.5-5.1 [facility] Protein [Mass/Vol] 6.0 g/dL 6.4-8.2 [facility] Sodium [Moles/Vol] 138 mmol/L 136-145 [facility] WBC (Bld) [#/Vol] 9.3 10*3/uL 4.4-11.0 [facility] Blood erythrocytes count (nu mber/volume)Ordered By: Karen Aly on 01-07-2023 RBC (Bld) [#/Vol] 4.90 10*6/uL 4.6-6.2 [facility] Blood hemoglobin measurement (mass/volume)Ordered By: Karen Aly on 01-07-2023 Hemoglobin (Bld) [Mass/Vol] 13.1 g/dL 13.0-16. 5 [facility] Blood lymphocytes/100 leukoc ytesOrdered By: Karen Aly on 01-07-2023 Lymphocytes/100 WBC (Bld) 19.8 % 19-41 [facility] Blood monocytes/100 leukocyt esOrdered By: Karen Aly on 01-07-2023 Monocytes/100 WBC (Bld) 7.2 % 0-10 [facility] Blood platelet mean volumeOr dered By: Karen Aly on 01-07-2023 Platelet mean volume (Bld) [Entitic vol] 9.1 fL 6.2-12.0 [facility] Determination of erythrocyte mean corpuscular volume (MCV)Ordered By: Karen Aly on 01-07-2023 MCV (RBC) [Entitic vol] 83.5 fL 80-94 [facility] Hematocrit Auto (Bld) [Volum e fraction]Ordered By: Karen Aly on 01-07-2023 Hematocrit (Bld) [Volume fraction] 40.9 % 40-54 [facility] INR in Blood by Coagulation assayOrdered By: Karen Aly on 01-07-2023 INR Coag (Bld) [Relative time] 2.2 {INR} [facility] Laboratory - Chemistry and C hemistry - challengeOrdered By: Karen Aly on 01-07-2023 ALP [Catalytic activity/Vol] 90 U/L 45-117 [facility] ALT [Catalytic activity/Vol] 18 U/L 16-61 [facility] CO2 [Moles/Vol] 24.0 mmol/L 21.0-32.0 [facility] Globulin (S) [Mass/Vol] 3.1 g/dL 2.2-4.2 [facility] Urea nitrogen/Creatinine [Mass ratio] 23.0 mg/mg 10-20 [facility] Laboratory - CoagulationOrde red By: Karen Aly on 01-07-2023 PT Coag (PPP) [Time] 24.8 s 11.7-14.9 [facility] Laboratory - Hematology and Cell countsOrdered By: Karen Aly on 01-07-2023 Erythrocyte distribution width (RBC) [Entitic vol] 43.7 fL 35.1-43.9 [facility] Erythrocyte distribution width (RBC) [Ratio] 14.5 % 11.6-14.6 [facility] Immature granulocytes/100 WBC (Bld) 1.000 % 0.0-0.9 [facility] Comment on above: IG% - Immature Granu locytes (promyelocytes, myelocytes and metamyelocytes) > 1% indicates that a LEFT SHIFT is Present. MCH (RBC) [Entitic mass] 26.7 pg 27.0-32.0 [facility] Nucleated RBC/100 WBC (Bld) [Ratio] 0 % 0-5 [facility] MCHC Auto (RBC) [Mass/Vol]Or dered By: Karen Aly on 01-07-2023 MCHC (RBC) [Mass/Vol] 32.0 g/dL 32-36 [facility] No Panel InformationOrdered By: Karen Aly on 01-07-2023 Estimated Creatinine Clearance Calc 63.83 ml/min [facility] Estimated GFR (MDRD) Amer 81 mL/min >60 [facility] Comment on above: GFR Calc Estimated GFR (MDRD) Non-Af Amer 67 mL/min >60 [facility] Comment on above: Non- GFR Calc 26.7 pg 27.0-32.0 [facility] 14.5 % 11.6-14.6 [facility] 43.7 fl 35.1-43.9 [facility] 1.000 % 0.0-0.9 [facility] 0 % 0-5 [facility] 24.8 SECONDS 11.7-14.9 [facility] 67 mL/min >60 [facility] 81 mL/min >60 [facility] 63.83 ml/min [facility] 23.0 RATIO 10-20 [facility] 3.1 g/dL 2.2-4.2 [facility] 90 U/L 45-117 [facility] 18 U/L 16-61 [facility] 24.0 mmol/L 21.0-32.0 [facility] Platelets bldOrdered By: Dede Aly on 01-07-2023 Platelets (Bld) [#/Vol] 216 10*3/uL 150-450 [facility] Serum or plasma albumin antoine urement (mass/volume)Ordered By: Karen Aly on 01-07-2023 Albumin [Mass/Vol] 2.9 g/dL 3.2-5.0 [facility] Serum or plasma albumin/glob ulin mass ratioOrdered By: Karen Aly on 01-07-2023 Albumin/Globulin [Mass ratio] 0.9 {ratio} 0.9-2.4 [facility] Serum or plasma calcium antoine urement (mass/volume)Ordered By: Karen Aly on 01-07-2023 Calcium [Mass/Vol] 8.8 mg/dL 8.5-10.1 [facility] Serum or plasma creatinine m easurement (mass/volume)Ordered By: Karen Aly on 01-07-2023 Creatinine [Mass/Vol] 1.13 mg/dL 0.70-1.30 [facility] Comment on above: The validity of the calculated GFR & GFRAA in patients over 70 years has not been determined. Clinical correlation is essential. Serum or plasma urea nitroge n measurement (mass/volume)Ordered By: Karen Aly on 01-07-2023 Urea nitrogen [Mass/Vol] 26 mg/dL 7-18 [facility] Thin prep Papanicolaou smear with manual screeningOrdered By: Karen Jermain on 01-07-2023 Thin prep Papanicolaou smear with manual screening 13 U/L 15-37 [facility] Thin prep Papanicolaou smear with manual screening 8 5-15 [facility] Basophil percentageOrdered B y: Karen Jermain on 01-05-2023 Basophil percentage 87 mg/dL <200 [facility] Basophil percentage 116 mg/dL <199 [facility] Cholesterol [Mass/Vol] 87 mg/dL <200 [facility] Comment on above: <200 mg/dL Desirable 200-240 mg/dL Borderline >240 mg/dL High Risk Triglyceride [Mass/Vol] 116 mg/dL <199 [facility] Comment on above: The drugs N-Acetylcy steine and Metamizole may falsely depress this assay.Serum Triglycerides Reference Interval Normal <150 mg/dL Borderline high 150 - 199 mg/dL High 200 - 499 mg/dL Very High > or = 500 mg/dL No Panel InformationOrdered By: Karen Aly on 01-05-2023 Thyroid Stimulating Hormone (TSH) 1.13 uIU/mL 0.358-3.74 [facility] 1.13 uIU/mL 0.358-3.74 [facility] Serum or plasma cholesterol in HDL measurement (mass/volume)Ordered By: Karen Aly on 01-05-2023 Cholesterol in HDL [Mass/Vol] 37 mg/dL >40 [facility] Comment on above: The drugs N-Acetylcy steine and Metamizole may falsely depress this assay. Reference Range HDL <40 mg/dL Low HDL Cholesterol HDL >or= 60 mg/dL High HDL Cholesterol Serum or plasma cholesterol in VLDL measurement (mass/volume)Ordered By: Karen Aly on 01-05-2023 Cholesterol in VLDL [Mass/Vol] 23 mg/dL 5-40 [facility] Serum or plasma low density lipoprotein (LDL) cholesterol measurement (mass/volume)Ordered By: Karen Aly on 01-05-2023 Cholesterol in LDL [Mass/Vol] 27 mg/dL 0-130 [facility] Whole blood hemoglobin A1c/t otal hemoglobin ratio (mass fraction)Ordered By: Karen Aly on 01-05-2023 HbA1c (Bld) [Mass fraction] 5.8 % 3.8-5.6 [facility] Comment on above: Normal < 5.7 % Predi abetic 5.7 - 6.4 % Diabetic >or= 6.5 % Please note range changes. Absolute lymphocyte countOrd ered By: Dr. Roberts on 01-04-2023 Lymphocytes Auto (Unsp spec) [#/Vol] 1.31 10*3/uL 0.83-4.51 [facility] Assessment of wrist artery p atency prior to arterial punctureOrdered By: Dr. Aly on 01-04-2023 Arterial patency Wrist artery --pre arterial puncture N/A [facility] Bacteria identified Cx Nom ( U)Ordered By: Maggy Roberts on 01-04-2023 Culture, urine Positive [facility] Base excessOrdered By: Dr. Freddy pettit on 01-04-2023 Base excess Calc (BldV) [Moles/Vol] 0 mmol/L -2-2 [facility] Basophil percentageOrdered B y: Dr. Aly on 01-04-2023 Basophil percentage 23.7 mmol/L 22-26 [facility] Basophils/100 WBC (Bld) 96 % 95-99 [facility] Ammonia (P) [Moles/Vol] 17.0 umol/L - [facility] Basophil percentageOrdered B y: Karen White on 01-04-2023 Basophil percentage 17.0 umol/L - [facility] Basophil percentageOrdered B y: Dr. Roberts on 01-04-2023 Basophil percentage 0 SEEN /hpf 0-5 [facility] Basophils/100 WBC (Bld) 0.4 % 0-1 [facility] Bilirubin [Mass/Vol] 0.70 mg/dL 0.20-1.00 [facility] Comment on above: For patients on eltr ombopag therapy, use of Dimension [place] TBIL is not recommended. Chloride [Moles/Vol] 105 mmol/L 98-107 [facility] Eosinophils/100 WBC (Bld) 1.7 % 0-5 [facility] Glucose [Mass/Vol] 133 mg/dL 74-106 [facility] Comment on above: Fasting Glucose resu lt greater than or equal to 126 mg/dL suggests DIABETES MELLITUS per A.D.A. criteria. Neutrophils (Bld) [#/Vol] 8.0 10*3/uL 2.0-7.7 [facility] Neutrophils/100 WBC (Bld) 78.3 % 47-70 [facility] Potassium [Moles/Vol] 4.2 mmol/L 3.5-5.1 [facility] Protein [Mass/Vol] 6.3 g/dL 6.4-8.2 [facility] Sodium [Moles/Vol] 139 mmol/L 136-145 [facility] WBC (Bld) [#/Vol] 10.2 10*3/uL 4.4-11.0 [facility] Bilirubin Test strip Ql (U)O rdered By: Dr. Roberts on 01-04-2023 Bilirubin Ql (U) Negative Negative [facility] Blood erythrocytes count (nu mber/volume)Ordered By: Dr. Roberts on 01-04-2023 RBC (Bld) [#/Vol] 5.09 10*6/uL 4.6-6.2 [facility] Blood hemoglobin measurement (mass/volume)Ordered By: Dr. Roberts on 01-04-2023 Hemoglobin (Bld) [Mass/Vol] 13.5 g/dL 13.0-16. 5 [facility] Blood lymphocytes/100 leukoc ytesOrdered By: Dr. Roberts on 01-04-2023 Lymphocytes/100 WBC (Bld) 12.8 % 19-41 [facility] Blood monocytes/100 leukocyt esOrdered By: Dr. Roberts on 01-04-2023 Monocytes/100 WBC (Bld) 5.9 % 0-10 [facility] Blood platelet mean volumeOr dered By: Dr. Roberts on 01-04-2023 Platelet mean volume (Bld) [Entitic vol] 8.7 fL 6.2-12.0 [facility] CO2 (BldA) [Partial pressure ]Ordered By: Dr. Aly on 01-04-2023 CO2 (Bld) [Partial pressure] 33.9 mm[Hg] 35-45 [facility] Culture, urineOrdered By: Eddie Roberts on 01-04-2023 Bacteria identified Cx Nom (U) Positive [facility] Determination of erythrocyte mean corpuscular volume (MCV)Ordered By: Dr. Roberts on 01-04-2023 MCV (RBC) [Entitic vol] 82.1 fL 80-94 [facility] Direct bilirubinOrdered By: Dr. Roberts on 01-04-2023 Bilirubin.direct [Mass/Vol] 0.20 mg/dL 0.00-0.3 0 [facility] Hematocrit Auto (Bld) [Volum e fraction]Ordered By: Dr. Roberts on 01-04-2023 Hematocrit (Bld) [Volume fraction] 41.8 % 40-54 [facility] INR in Blood by Coagulation assayOrdered By: Dr. Roberts on 01-04-2023 INR Coag (Bld) [Relative time] 3.1 {INR} [facility] Ketones Test strip Ql (U)Ord ered By: Dr. Roberts on 01-04-2023 Ketones Ql (U) Negative Negative [facility] Laboratory - Chemistry and C hemistry - challengeOrdered By: Karen Aly on 01-04-2023 Cobalamin (Vitamin B12) [Mass/Vol] 260 pg/mL 211-911 [facility] Laboratory - Chemistry and C hemistry - challengeOrdered By: Dr. Aly on 01-04-2023 Magnesium [Mass/Vol] 1.8 mg/dL 1.6-2.6 [facility] Laboratory - Chemistry and C hemistry - challengeOrdered By: Dr. Roberts on 01-04-2023 ALP [Catalytic activity/Vol] 102 U/L 45-117 [facility] ALT [Catalytic activity/Vol] 18 U/L 16-61 [facility] CO2 [Moles/Vol] 25.0 mmol/L 21.0-32.0 [facility] Globulin (S) [Mass/Vol] 3.2 g/dL 2.2-4.2 [facility] Urea nitrogen/Creatinine [Mass ratio] 18.7 mg/mg 10-20 [facility] Laboratory - CoagulationOrde red By: Dr. Roberts on 01-04-2023 PT Coag (PPP) [Time] 32.6 s 11.7-14.9 [facility] Laboratory - Hematology and Cell countsOrdered By: Dr. Roberts on 01-04-2023 Erythrocyte distribution width (RBC) [Entitic vol] 42.3 fL 35.1-43.9 [facility] Erythrocyte distribution width (RBC) [Ratio] 14.2 % 11.6-14.6 [facility] Immature granulocytes/100 WBC (Bld) 0.900 % 0.0-0.9 [facility] Comment on above: IG% - Immature Granu locytes (promyelocytes, myelocytes and metamyelocytes) > 1% indicates that a LEFT SHIFT is Present. MCH (RBC) [Entitic mass] 26.5 pg 27.0-32.0 [facility] Nucleated RBC/100 WBC (Bld) [Ratio] 0 % 0-5 [facility] Laboratory - Microbiology an d Antimicrobial susceptibilityOrdered By: Maggy Roberts on 01-04-2023 Bacteria identified Cx Nom (Bld) No growth in 5 days. [facility] MCHC Auto (RBC) [Mass/Vol]Or dered By: Dr. Roberts on 01-04-2023 MCHC (RBC) [Mass/Vol] 32.3 g/dL 32-36 [facility] Mucus LM Ql (Urine sed)Order ed By: Dr. Roberts on 01-04-2023 Mucus Ql (Urine sed) 0 SEEN /hpf [facility] Nitrite Test strip Ql (U)Ord ered By: Dr. Roberts on 01-04-2023 Nitrite Ql (U) Negative Negative [facility] No Panel InformationOrdered By: Dr. Aly on 01-04-2023 Blood Gas Oxygen Percent 21 [facility] Blood Gas Sample Site R [facility] Blood Gas Specimen Type ART [facility] Blood Gas Total CO2 25 mmol/L [facility] Oxygen Delivery Device Room Air [facility] No Panel InformationOrdered By: Karen Aly on 01-04-2023 ART [facility] R [facility] Room Air [facility] 21 [facility] 25 mmol/L [facility] 1.8 mg/dL 1.6-2.6 [facility] 260 pg/mL 211-911 [facility] No Panel InformationOrdered By: Maggy Roberts on 01-04-2023 No growth in 5 days. [facility] 7 pg/mL 3.0-78.0 [facility] No Panel InformationOrdered By: Dr. Roberts on 01-04-2023 Estimated Creatinine Clearance Calc 58.64 ml/min [facility] Estimated GFR (MDRD) Amer 74 mL/min >60 [facility] Comment on above: GFR Calc Estimated GFR (MDRD) Non-Af Amer 61 mL/min >60 [facility] Comment on above: Non- GFR Calc Troponin I High Sensitivity 7 pg/mL 3.0-78.0 [facility] Comment on above: Please Note: New Th[place] t Units and Gender Specific Reference Ranges. For more information see Policy Stat Procedure [place] High Sensitivity Troponin (TNIH) and attachments. Oxygen (BldA) [Partial press ure]Ordered By: Dr. Aly on 01-04-2023 Oxygen (Bld) [Partial pressure] 78 mmHG 75-100 [facility] Platelets bldOrdered By: Dr. Roberts on 01-04-2023 Platelets (Bld) [#/Vol] 228 10*3/uL 150-450 [facility] Protein Test strip Ql (U)Ord ered By: Dr. Roberts on 01-04-2023 Protein Ql (U) 15 mg/dl Negative [facility] Serum Treponema species anti body detectionOrdered By: Karen Aly on 01-04-2023 Treponema sp Ab Ql (S) Non-Reactive [facility] Serum or plasma albumin antoine urement (mass/volume)Ordered By: Dr. Roberts on 01-04-2023 Albumin [Mass/Vol] 3.1 g/dL 3.2-5.0 [facility] [facility] Serum or plasma calcium antoine urement (mass/volume)Ordered By: Dr. Roberts on 01-04-2023 Calcium [Mass/Vol] 8.6 mg/dL 8.5-10.1 [facility] Serum or plasma creatinine m easurement (mass/volume)Ordered By: Dr. Roberts on 01-04-2023 Creatinine [Mass/Vol] 1.23 mg/dL 0.70-1.30 [facility] Comment on above: The validity of the calculated GFR & GFRAA in patients over 70 years has not been determined. Clinical correlation is essential. Serum or plasma folate measu rement (mass/volume)Ordered By: Karen Aly on 01-04-2023 Folate [Mass/Vol] 4.40 ng/mL 3.1-55.4 [facility] Serum or plasma urea nitroge n measurement (mass/volume)Ordered By: Dr. Roberts on 01-04-2023 Urea nitrogen [Mass/Vol] 23 mg/dL 7-18 [facility] Serum procalcitonin measurem entOrdered By: Karen Aly on 01-04-2023 Procalcitonin [Mass/Vol] ng/mL 0.00-0.09 [facility] Comment on above: A procalcitonin (PCT ) [...] Ql (Urine sed) 0-5 SEEN /hpf 0-5 [facility] Thin prep Papanicolaou smear with manual screeningOrdered By: Dr. Roberts on 01-04-2023 Thin prep Papanicolaou smear with manual screening 13 U/L 15-37 [facility] Thin prep Papanicolaou smear with manual screening 9 5-15 [facility] Urine blood detectionOrdered By: Dr. Roberts on 01-04-2023 RBC Ql (U) 10 /ul Negative [facility] RBC Ql (U) 0-5 SEEN /hpf 0-5 [facility] Urine clarityOrdered By: Dr. Roberts on 01-04-2023 Clarity (U) Sl. Cloudy Clear [facility] Urine color determinationOrd ered By: Dr. Roberts on 01-04-2023 Color (U) Yellow Yellow [facility] Urine glucose detectionOrder ed By: Dr. Roberts on 01-04-2023 Glucose Ql (U) 100 mg/dl Normal [facility] Urine leukocyte esterase det ection by dipstickOrdered By: Dr. Roberts on 01-04-2023 Leukocyte esterase Test strip Ql (U) Negative Negative [facility] Urine pHOrdered By: Dr. Yaya gallo on 01-04-2023 pH (U) 6.0 [pH] 5.0 - 8.0 [facility] Urine sediment bacteria coun t by microscopy (number/high power field)Ordered By: Dr. Roberts on 01-04-2023 Bacteria LM.HPF (Urine sed) [#/Area] 0 /[HPF] None Seen [facility] Urine specific gravity measu rementOrdered By: Dr. Roberts on 01-04-2023 Specific gravity (U) [Rel density] 1.020 1.002-1.03 0 [facility] Urobilinogen Auto test strip Ql (U)Ordered By: Dr. Roberts on 01-04-2023 Urobilinogen Ql (U) 4 mg/dl Normal [facility] pH measurementOrdered By: Dr Jose Aly on 01-04-2023 pH (Unsp spec) 7.45 [pH] 7.35-7.45 [facility] Absolute lymphocyte counton 07-11-2022 Lymphocytes Auto (Unsp spec) [#/Vol] 1.98 10*3/uL 0.83-4.51 [facility] Work Phone: Basophil percentageon 2021 Basophils/100 WBC (Bld) 0.6 % 0-1 [facility] Work Phone: Bilirubin [Mass/Vol] 0.90 mg/dL 0.20-1.00 [facility] Work Phone: Comment on above: For patients on eltr ombopag therapy, use of Dimension [place] TBIL is not recommended. Chloride [Moles/Vol] 105 mmol/L 98-107 [facility] Work Phone: Cholesterol [Mass/Vol] 102 mg/dL <200 [facility] Work Phone: Comment on above: <200 mg/dL Desirable 200-240 mg/dL Borderline >240 mg/dL High Risk Eosinophils/100 WBC (Bld) 4.1 % 0-5 [facility] Work Phone: Glucose [Mass/Vol] 103 mg/dL 74-106 [facility] Work Phone: Comment on above: Fasting Glucose resu lt from 100 to 125 mg/dL suggests IMPAIRED HOMEOSTASIS per A.D.A. criteria. Neutrophils (Bld) [#/Vol] 5.2 10*3/uL 2.0-7.7 [facility] Work Phone: Neutrophils/100 WBC (Bld) 63.5 % 47-70 [facility] Work Phone: Potassium [Moles/Vol] 3.5 mmol/L 3.5-5.1 [facility] Work Phone: Protein [Mass/Vol] 5.9 g/dL 6.4-8.2 [facility] Work Phone: Sodium [Moles/Vol] 138 mmol/L 136-145 [facility] Work Phone: Triglyceride [Mass/Vol] 124 mg/dL <199 [facility] Work Phone: Comment on above: The drugs N-Acetylcy steine and Metamizole may falsely depress this assay.Serum Triglycerides Reference Interval Normal <150 mg/dL Borderline high 150 - 199 mg/dL High 200 - 499 mg/dL Very High > or = 500 mg/dL WBC (Bld) [#/Vol] 8.2 10*3/uL 4.4-11.0 [facility] Work Phone: Blood erythrocytes count (nu mber/volume)on 07-11-2022 RBC (Bld) [#/Vol] 4.75 10*6/uL 4.6-6.2 [facility] Work Phone: Blood hemoglobin measurement (mass/volume)on 07-11-2022 Hemoglobin (Bld) [Mass/Vol] 12.7 g/dL 13.0-16. 5 [facility] Work Phone: Blood lymphocytes/100 leukoc yteson 07-11-2022 Lymphocytes/100 WBC (Bld) 24.1 % 19-41 [facility] Work Phone: Blood monocytes/100 leukocyt eson 07-11-2022 Monocytes/100 WBC (Bld) 6.8 % 0-10 [facility] Work Phone: Blood platelet mean volumeon 07-11-2022 Platelet mean volume (Bld) [Entitic vol] 9.2 fL 6.2-12.0 [facility] Work Phone: Determination of erythrocyte mean corpuscular volume (MCV)on 07-11-2022 MCV (RBC) [Entitic vol] 82.7 fL 80-94 [facility] Work Phone: Glucose Glucometer (BldC) [M ass/Vol]on 07-11-2022 Glucose [Mass/Vol] 149 mg/dL 74-106 [facility] Work Phone: Comment on above: MANAGEMENT OF PATIEN T CARE PER NURSING PROTOCOL Hematocrit Auto (Bld) [Volum e fraction]on 07-11-2022 Hematocrit (Bld) [Volume fraction] 39.3 % 40-54 [facility] Work Phone: INR in Blood by Coagulation assayon 07-11-2022 INR Coag (Bld) [Relative time] 2.1 {INR} [facility] Work Phone: Laboratory - Chemistry and C hemistry - challengeon 07-11-2022 ALP [Catalytic activity/Vol] 106 U/L 45-117 [facility] Work Phone: ALT [Catalytic activity/Vol] 22 U/L 16-61 [facility] Work Phone: CO2 [Moles/Vol] 25.0 mmol/L 21.0-32.0 [facility] Work Phone: Globulin (S) [Mass/Vol] 2.9 g/dL 2.2-4.2 [facility] Work Phone: Magnesium [Mass/Vol] 1.9 mg/dL 1.6-2.6 [facility] Work Phone: Urea nitrogen/Creatinine [Mass ratio] 17.7 mg/mg 10-20 [facility] Work Phone: Laboratory - Coagulationon 1 09-11-2021 PT Coag (PPP) [Time] 23.6 s 11.7-14.9 [facility] Work Phone: Laboratory - Hematology and Cell countson 07-11-2022 Erythrocyte distribution width (RBC) [Entitic vol] 44.0 fL 35.1-43.9 [facility] Work Phone: Erythrocyte distribution width (RBC) [Ratio] 14.6 % 11.6-14.6 [facility] Work Phone: Immature granulocytes/100 WBC (Bld) 0.900 % 0.0-0.9 [facility] Work Phone: Comment on above: IG% - Immature Granu locytes (promyelocytes, myelocytes and metamyelocytes) > 1% indicates that a LEFT SHIFT is Present. MCH (RBC) [Entitic mass] 26.7 pg 27.0-32.0 [facility] Work Phone: Nucleated RBC/100 WBC (Bld) [Ratio] 0 % 0-5 [facility] Work Phone: MCHC Auto (RBC) [Mass/Vol]on 07-11-2022 MCHC (RBC) [Mass/Vol] 32.3 g/dL 32-36 [facility] Work Phone: No Panel Informationon 07-11 Estimated Creatinine Clearance Calc 64.82 ml/min [facility] Work Phone: Estimated GFR (MDRD) Amer 81 mL/min >60 [facility] Work Phone: Comment on above: GFR Calc Estimated GFR (MDRD) Non-Af Amer 67 mL/min >60 [facility] Work Phone: Comment on above: Non- GFR Calc Platelets bldon 07-11-2022 Platelets (Bld) [#/Vol] 200 10*3/uL 150-450 [facility] Work Phone: Serum or plasma albumin antoine urement (mass/volume)on 07-11-2022 Albumin [Mass/Vol] 3.0 g/dL 3.2-5.0 [facility] Work Phone: Serum or plasma albumin/glob ulin mass ratioon 07-11-2022 Albumin/Globulin [Mass ratio] 1.0 {ratio} 0.9-2.4 [facility] Work Phone: Serum or plasma calcium antoine urement (mass/volume)on 07-11-2022 Calcium [Mass/Vol] 8.6 mg/dL 8.5-10.1 [facility] Work Phone: Serum or plasma cholesterol in HDL measurement (mass/volume)on 07-11-2022 Cholesterol in HDL [Mass/Vol] 36 mg/dL >40 [facility] Work Phone: Comment on above: The drugs N-Acetylcy steine and Metamizole may falsely depress this assay. Reference Range HDL <40 mg/dL Low HDL Cholesterol HDL >or= 60 mg/dL High HDL Cholesterol Serum or plasma cholesterol in VLDL measurement (mass/volume)on 07-11-2022 Cholesterol in VLDL [Mass/Vol] 25 mg/dL 5-40 [facility] Work Phone: Serum or plasma creatinine m easurement (mass/volume)on 07-11-2022 Creatinine [Mass/Vol] 1.13 mg/dL 0.70-1.30 [facility] Work Phone: Comment on above: The validity of the calculated GFR & GFRAA in patients over 70 years has not been determined. Clinical correlation is essential. Serum or plasma low density lipoprotein (LDL) cholesterol measurement (mass/volume)on 07-11-2022 Cholesterol in LDL [Mass/Vol] 41 mg/dL 0-130 [facility] Work Phone: Serum or plasma urea nitroge n measurement (mass/volume)on 07-11-2022 Urea nitrogen [Mass/Vol] 20 mg/dL 7-18 [facility] Work Phone: Thin prep Papanicolaou smear with manual screeningon 07-11-2022 Thin prep Papanicolaou smear with manual screening 23 U/L 15-37 [facility] Work Phone: Thin prep Papanicolaou smear with manual screening 8 5-15 [facility] Work Phone: No Panel Informationon 07-10 Troponin I High Sensitivity 103 pg/mL 3.0-78.0 [facility] Work Phone: Comment on above: Please Note: New Thania t Units and Gender Specific Reference Ranges. For more information see Policy Stat Procedure [place] High Sensitivity Troponin (TNIH) and attachments. Thyroid Stimulating Hormone (TSH) 1.03 uIU/mL 0.358-3.74 [facility] Work Phone: Basophil percentageon 2021 Basophil percentage 0-5 SEEN /hpf 0-5 [facility] Work Phone: Bilirubin Test strip Ql (U)o n 07-09-2022 Bilirubin Ql (U) Negative Negative [facility] Work Phone: Hyaline casts LM.LPF (Urine sed) [#/Area]on 07-09-2022 Hyaline casts (Urine sed) [#/Area] 0 /[LPF] 0-5 [facility] Work Phone: Ketones Test strip Ql (U)on 07-09-2022 Ketones Ql (U) 5 mg/dl Negative [facility] Work Phone: Mucus LM Ql (Urine sed)on Mucus Ql (Urine sed) 1+ /hpf [facility] Work Phone: Nitrite Test strip Ql (U)on 07-09-2022 Nitrite Ql (U) Negative Negative [facility] Work Phone: Protein Test strip Ql (U)on 07-09-2022 Protein Ql (U) 30 mg/dl Negative [facility] Work Phone: Squamous epithelial cells de tection in urine sediment by light microscopyon 07-09-2022 Epithelial cells.squamous LM Ql (Urine sed) 0 SEEN /hpf 0-5 [facility] Work Phone: Urine blood detectionon 06-15 RBC Ql (U) 25 /ul Negative [facility] Work Phone: RBC Ql (U) 0-5 SEEN /hpf 0-5 [facility] Work Phone: Urine clarityon 07-09-2022 Clarity (U) Clear Clear [facility] Work Phone: Urine color determinationon 07-09-2022 Color (U) Yellow Yellow [facility] Work Phone: Urine glucose detectionon Glucose Ql (U) Normal mg/dl Normal [facility] Work Phone: Urine leukocyte esterase det ection by dipstickon 07-09-2022 Leukocyte esterase Test strip Ql (U) Negative Negative [facility] Work Phone: Urine pHon 07-09-2022 pH (U) 5.0 [pH] 5.0 - 8.0 [facility] Work Phone: Urine sediment bacteria coun t by microscopy (number/high power field)on 07-09-2022 Bacteria LM.HPF (Urine sed) [#/Area] 1 /[HPF] None Seen [facility] Work Phone: Urine specific gravity measu rementon 07-09-2022 Specific gravity (U) [Rel density] 1.025 1.002-1.03 0 [facility] Work Phone: Urobilinogen Auto test strip Ql (U)on 07-09-2022 Urobilinogen Ql (U) 1 mg/dl Normal [facility] Work Phone: INR in Blood by Coagulation assayon 03-07-2022 INR Coag (Bld) [Relative time] 2.9 {INR} [facility] Laboratory - Coagulationon 0 03-07-2022 PT Coag (PPP) [Time] 30.2 s 11.7-14.9 [facility] Work Phone: Absolute lymphocyte counton 03-02-2022 Lymphocytes Auto (Unsp spec) [#/Vol] 1.26 10*3/uL 0.83-4.51 [facility] Work Phone: [phone] Basophil percentageon 2021 Basophil percentage 0 SEEN /hpf 0-5 [facility] Work Phone: Basophils/100 WBC (Bld) 0.4 % 0-1 [facility] Work Phone: Chloride [Moles/Vol] 105 mmol/L 98-107 [facility] Work Phone: Eosinophils/100 WBC (Bld) 2.5 % 0-5 [facility] Work Phone: Glucose [Mass/Vol] 158 mg/dL 74-106 [facility] Work Phone: Comment on above: Fasting Glucose resu lt greater than or equal to 126 mg/dL suggests DIABETES MELLITUS per A.D.A. criteria. Neutrophils (Bld) [#/Vol] 8.8 10*3/uL 2.0-7.7 [facility] Work Phone: Neutrophils/100 WBC (Bld) 78.8 % 47-70 [facility] Work Phone: Potassium [Moles/Vol] 4.2 mmol/L 3.5-5.1 [facility] Work Phone: Sodium [Moles/Vol] 138 mmol/L 136-145 [facility] Work Phone: [phone] WBC (Bld) [#/Vol] 11.2 10*3/uL 4.4-11.0 [facility] Work Phone: Bilirubin Test strip Ql (U)o n 03-02-2022 Bilirubin Ql (U) Negative Negative [facility] Work Phone: Blood erythrocytes count (nu mber/volume)on 03-02-2022 RBC (Bld) [#/Vol] 5.15 10*6/uL 4.6-6.2 [facility] Work Phone: [phone] Blood hemoglobin measurement (mass/volume)on 03-02-2022 Hemoglobin (Bld) [Mass/Vol] 13.8 g/dL 13.0-16. 5 [facility] Work Phone: Blood lymphocytes/100 leukoc yteson 03-02-2022 Lymphocytes/100 WBC (Bld) 11.2 % 19-41 [facility] Work Phone: Blood monocytes/100 leukocyt eson 03-02-2022 Monocytes/100 WBC (Bld) 5.7 % 0-10 [facility] Work Phone: Blood platelet mean volumeon 03-02-2022 Platelet mean volume (Bld) [Entitic vol] 9.0 fL 6.2-12.0 [facility] Work Phone: Determination of erythrocyte mean corpuscular volume (MCV)on 03-02-2022 MCV (RBC) [Entitic vol] 82.3 fL 80-94 [facility] Work Phone: Glucose Glucometer (BldC) [M ass/Vol]on 03-02-2022 Glucose [Mass/Vol] 158 mg/dL 74-106 [facility] Work Phone: Comment on above: MANAGEMENT OF PATIEN T CARE PER NURSING PROTOCOL Hematocrit Auto (Bld) [Volum e fraction]on 03-02-2022 Hematocrit (Bld) [Volume fraction] 42.4 % 40-54 [facility] Work Phone: Hyaline casts LM.LPF (Urine sed) [#/Area]on 03-02-2022 Hyaline casts (Urine sed) [#/Area] 0 /[LPF] 0-5 [facility] Work Phone: INR in Blood by Coagulation assayon 03-02-2022 INR Coag (Bld) [Relative time] 4.4 {INR} [facility] Work Phone: Comment on above: CRITICAL VALUE VERIF IED. CALLED TO [id number] Brie Ma.RESULTS READ BACK BY SAME . Ketones Test strip Ql (U)on 03-02-2022 Ketones Ql (U) 5 mg/dl Negative [facility] Work Phone: Laboratory - Chemistry and C hemistry - challengeon 03-02-2022 CO2 [Moles/Vol] 23.0 mmol/L 21.0-32.0 [facility] Work Phone: Urea nitrogen/Creatinine [Mass ratio] 16.9 mg/mg 10-20 [facility] Work Phone: Laboratory - Coagulationon 0 03-02-2022 PT Coag (PPP) [Time] 41.4 s 11.7-14.9 [facility] Work Phone: Laboratory - Hematology and Cell countson 03-02-2022 Erythrocyte distribution width (RBC) [Entitic vol] 41.4 fL 35.1-43.9 [facility] Work Phone: Erythrocyte distribution width (RBC) [Ratio] 14.0 % 11.6-14.6 [facility] Work Phone: Immature granulocytes/100 WBC (Bld) 1.400 % 0.0-0.9 [facility] Work Phone: Comment on above: IG% - Immature Granu locytes (promyelocytes, myelocytes and metamyelocytes) > 1% indicates that a LEFT SHIFT is Present. MCH (RBC) [Entitic mass] 26.8 pg 27.0-32.0 [facility] Work Phone: Nucleated RBC/100 WBC (Bld) [Ratio] 0 % 0-5 [facility] Work Phone: MCHC Auto (RBC) [Mass/Vol]on 03-02-2022 MCHC (RBC) [Mass/Vol] 32.5 g/dL 32-36 [facility] Work Phone: Mucus LM Ql (Urine sed)on Mucus Ql (Urine sed) 3+ /hpf [facility] Work Phone: Nitrite Test strip Ql (U)on 03-02-2022 Nitrite Ql (U) Negative Negative [facility] Work Phone: No Panel Informationon 03-02 Estimated Creatinine Clearance Calc 49.49 ml/min [facility] Work Phone: Estimated GFR (MDRD) Amer 60 mL/min >60 [facility] Work Phone: Comment on above: GFR Calc Estimated GFR (MDRD) Non-Af Amer 49 mL/min >60 [facility] Work Phone: Comment on above: Non- GFR Calc Troponin I High Sensitivity 11 pg/mL 3.0-78.0 [facility] Work Phone: Comment on above: Please Note: New Thania t Units and Gender Specific Reference Ranges. For more information see Policy Stat Procedure [place] High Sensitivity Troponin (TNIH) and attachments. Platelets bldon 03-02-2022 Platelets (Bld) [#/Vol] 269 10*3/uL 150-450 [facility] Work Phone: Protein Test strip Ql (U)on 03-02-2022 Protein Ql (U) 30 mg/dl Negative [facility] Work Phone: Serum or plasma calcium antoine urement (mass/volume)on 03-02-2022 Calcium [Mass/Vol] 9.4 mg/dL 8.5-10.1 [facility] Work Phone: Serum or plasma creatinine m easurement (mass/volume)on 03-02-2022 Creatinine [Mass/Vol] 1.48 mg/dL 0.70-1.30 [facility] Work Phone: Comment on above: The validity of the calculated GFR & GFRAA in patients over 70 years has not been determined. Clinical correlation is essential. Serum or plasma urea nitroge n measurement (mass/volume)on 03-02-2022 Urea nitrogen [Mass/Vol] 25 mg/dL 7-18 [facility] Work Phone: Squamous epithelial cells de tection in urine sediment by light microscopyon 03-02-2022 Epithelial cells.squamous LM Ql (Urine sed) 0-5 SEEN /hpf 0-5 [facility] Work Phone: Thin prep Papanicolaou smear with manual screeningon 03-02-2022 Thin prep Papanicolaou smear with manual screening 10 5-15 [facility] Work Phone: Urine blood detectionon 02-12 RBC Ql (U) 10 /ul Negative [facility] Work Phone: RBC Ql (U) 0-5 SEEN /hpf 0-5 [facility] Work Phone: Urine clarityon 03-02-2022 Clarity (U) Clear Clear [facility] Work Phone: Urine color determinationon 03-02-2022 Color (U) Yellow Yellow [facility] Work Phone: Urine glucose detectionon Glucose Ql (U) 50 mg/dl Normal [facility] Work Phone: Urine leukocyte esterase det ection by dipstickon 03-02-2022 Leukocyte esterase Test strip Ql (U) Negative Negative [facility] Work Phone: Urine pHon 03-02-2022 pH (U) 5.0 [pH] 5.0 - 8.0 [facility] Work Phone: Urine sediment bacteria coun t by microscopy (number/high power field)on 03-02-2022 Bacteria LM.HPF (Urine sed) [#/Area] 2 /[HPF] None Seen [facility] Work Phone: Urine specific gravity measu rementon 03-02-2022 Specific gravity (U) [Rel density] 1.025 1.002-1.03 0 [facility] Work Phone: Urobilinogen Auto test strip Ql (U)on 03-02-2022 Urobilinogen Ql (U) Normal mg/dl Normal [facility] Work Phone: ECHOon 01-09-2022 [facility] CNPMaggie 01-02-2022 CNPN Telephone (VICTORIANO) RICHARD ROY ([id number]) 1945 M Date Time Provider Department 01/02/22 JUSTINA MONIQUE During your visit today, we recorded the following information about you: Justina Garcia LPN 01/02/2022 7:43 AM Signed ----- Message from Justina Monique APRN.MANAGER CREATIVE sent at 01/02/2022 7:38 AM EDT ----- [...] Date Reviewed: 01/01/2022 Reviewed by: Justina Monique APRN.MANAGER CREATIVE - Fully Assessed Reason for Visit: Results [...] mouth once daily. - blood sugar diagnostic ([employer] ULTRA TEST) test strip Test blood sugar(s) [...] Status:Closed by JUSTINA GARCIA on 01/02/22 Normal [facility] CBC W Auto Differential pane l (Bld)on 01-01-2022 Abs Immature Gran 0.15 k/uL High <0.10 k/uL [facility] Basophils (Bld) [#/Vol] 0.06 10*3/uL <0.11 k/uL [facility] Basophils/100 WBC (Bld) 0.5 % C [facility] Differential cell count method Nom (Bld) Auto [facility] Eosinophils (Bld) [#/Vol] 0.39 10*3/uL <0.46 k/ uL [facility] Eosinophils/100 WBC (Bld) 3.1 % [facility] Erythrocyte distribution width (RBC) [Ratio] 14.5 % 11.5 - 15.0 % [facility] Hematocrit (Bld) [Volume fraction] 46.6 % 39.0 - 51.0 % [facility] Hemoglobin (Bld) [Mass/Vol] 14.5 g/dL 13.0 - 17.0 g/dL [facility] Immature Gran % 1.2 % [facility] Lymphocytes (Bld) [#/Vol] 1.81 10*3/uL 1. 00 - 4.00 k/uL [facility] Lymphocytes/100 WBC (Bld) 14.5 % [facility] MCH (RBC) [Entitic mass] 26.6 pg 26. 0 - 34.0 pg [facility] MCHC (RBC) [Mass/Vol] 31.1 g/dL 30.5 - 36.0 g/dL [facility] MCV (RBC) [Entitic vol] 85.3 fL 80.0 - 100.0 fL [facility] Monocytes (Bld) [#/Vol] 0.86 10*3/uL <0.87 k/uL [facility] Monocytes/100 WBC (Bld) 6.9 % C [facility] Neutrophils (Bld) [#/Vol] 9.20 10*3/uL High 1. 45 - 7.50 k/uL [facility] Neutrophils/100 WBC (Bld) 73.8 % [facility] Nucleated RBC (Bld) [#/Vol] 10*3/uL <0.01 k/ uL [facility] Nucleated RBC/100 WBC (Bld) [Ratio] 0.0 /100 WBC [facility] Platelet mean volume (Bld) [Entitic vol] 9.7 fL 9.0 - 12.7 fL [facility] Platelets (Bld) [#/Vol] 287 10*3/uL 150 - 400 k/uL [facility] RBC (Bld) [#/Vol] 5.46 10*6/uL 4.20 - 6.00 m/uL [facility] WBC (Bld) [#/Vol] 12.47 10*3/uL High 3.70 - 11.00 k/uL [facility] Comprehensive metabolic 2000 panelon 01-01-2022 Albumin [Mass/Vol] 4.2 g/dL 3.9 - 4.9 g/dL [facility] ALP [Catalytic activity/Vol] 96 U/L 38 - 113 U/L [facility] ALT [Catalytic activity/Vol] 29 U/L 10 - 54 U/L [facility] Anion gap [Moles/Vol] 12 mmol/L 9 - 18 mmol/L [facility] AST [Catalytic activity/Vol] 20 U/L 14 - 40 U/L [facility] Bilirubin [Mass/Vol] 0.6 mg/dL 0.2 - 1 .3 mg/dL [facility] Calcium [Mass/Vol] 9.4 mg/dL 8.5 - 10. 2 mg/dL [facility] Chloride [Moles/Vol] 101 mmol/L 97 - 10 5 mmol/L [facility] CO2 [Moles/Vol] 25 mmol/L 22 - 30 mmol/L [facility] Creatinine [Mass/Vol] 1.20 mg/dL 0.73 - 1.22 mg/dL [facility] Estimated Glomerular Filtration Rate 63 mL/min/1.73m >=60 mL/min/1.7 3m [facility] Glucose [Mass/Vol] 118 mg/dL High 74 - 99 mg/dL [facility] Potassium [Moles/Vol] 4.4 mmol/L 3.7 - 5.1 mmol/L [facility] Protein [Mass/Vol] 6.6 g/dL 6.3 - 8.0 g/dL [facility] Sodium [Moles/Vol] 138 mmol/L 136 - 144 mmol/L [facility] Urea nitrogen [Mass/Vol] 15 mg/dL 9 - 24 mg/dL [facility] PSA/PROSTSPECAG SCRNon 01-01 Prostate specific Ag [Mass/Vol] 1.75 ng/mL <2.60 ng/mL [facility] UA DIP, URINE (POC)on 2021 BILIRUBIN UA (POCT) Negative Negative [facility] CLARITY UA (POCT) Clear [facility] COLOR UA (POCT) Dark yellow [facility] d [facility] GLUCOSE UA (POCT) 100 mg/dL Abnormal Negative mg/dL [facility] HEMOGLOBIN/BLOOD UA (POCT) Trace-intact Abnormal Negativ e [facility] KETONE UA (POCT) Negative Negative mg/dL [facility] LEUKOCYTES UA (POCT) Negative Negative [facility] NITRITE UA (POCT) Negative Negative [facility] PH UA (POCT) 5.5 4.5 - 8.0 [facility] Protein Ql (U) 30 mg/dL Abnormal Negative mg/dL [facility] SPECIFIC GRAVITY UA (POCT) >=1.030 1 .005 - 1.030 [facility] UROBILINOGEN UA (POCT) 1.0 E.U./dL Lanette l E.U./dL [facility] VITAMIN B12 BLOODon 01-02-20 Cobalamin (Vitamin B12) [Mass/Vol] 377 pg/mL 232-1,245 pg/mL [facility] Absolute lymphocyte counton 12-29-2021 Lymphocytes Auto (Unsp spec) [#/Vol] 1.56 10*3/uL 0.83-4.51 [facility] Work Phone: BCIDon 12-29-2021 Acinetobacter justen-baumanii complex Not detected Normal Not Detected [facility] ([place] Comment on above: Performed By: #### B JIN #### [facility] [address] [place] [address] Bacteroides fragilis Not detected Normal Not Detected [facility] ([place] Comment on above: Performed By: #### B JIN #### [facility] [address] [place] [address] BCID Comment See Comment Normal [facility] ([place] Comment on above: Result Comment: Anti microbial [...] follow. Performed By: #### B JIN #### [place] [address] Kellie albicans Not detected Normal Not Detected [facility] ([place]) Comment on above: Performed By: #### B JIN #### [place] [address] Kellie auris Not detected Normal Not Detected [facility] ([place] Comment on above: Performed By: #### B JIN #### [place] [address] Kellie glabrata Not detected Normal Not Detected [facility] ([place] Comment on above: Performed By: #### B JIN #### [place] [address] Kellie krusei Not detected Normal Not Detected [facility] ([place] Comment on above: Performed By: #### B JIN #### [place] [address] Kellie parapsilosis Not detected Normal Not Detected [facility] ([place] Comment on above: Performed By: #### B JIN #### [place] [address] Kellie tropicalis Not detected Normal Not Detected [facility] ([place] Comment on above: Performed By: #### B JIN #### [place] [address] Cryptococcus neoformans-gattii Not detected Normal Not Detected [facility] ([place] Comment on above: Performed By: #### B JIN #### [place] [address] CTX-M (ESBL) Not Applicable Normal Not Detected [facility] ([place] Comment on above: Performed By: #### B JIN #### [place] [address] E. Coli Not detected Normal Not Detected [facility] ([place] Comment on above: Performed By: #### B JIN #### [facility] [address] [place] [address] Enterobacter cloacae Complex Not detected Normal Not Detected [facility] ([place] Comment on above: Performed By: #### B JIN #### [facility] [address] [place] [address] Enterobacterales Not detected Normal Not Detected [facility] ([place] Comment on above: Performed By: #### B JIN #### [facility] [address] [place] [address] Enterococcus faecalis Not detected Normal Not Detected [facility] ([place] Comment on above: Performed By: #### B JIN #### [facility] [address] [place], [place] [id number] Enterococcus faecium Not detected Normal Not Detected [facility] ([place] Comment on above: Performed By: #### B JIN #### [facility] [address] [place] [address] Haemophilus influenzae Not detected Normal Not Detected [facility] ([place] Comment on above: Performed By: #### B JIN #### [facility] [address] [place] [address] IMP (Carbapenemase) Not Applicable Normal Not Detected [facility] ([place] Comment on above: Performed By: #### B JIN #### [facility] [address] [place], [place] [id number] Klebsiella aerogenes Not detected Normal Not Detected [facility] ([place] Comment on above: Performed By: #### B JIN #### [facility] [address] [place], [place] [id number] Klebsiella oxytoca Not detected Normal Not Detected [facility] ([place] Comment on above: Performed By: #### B JIN #### [facility] [address] [place] [address] Klebsiella pneumoniae group Not detected Normal Not Detected [facility] ([place] Comment on above: Performed By: #### B JIN #### [facility] [address] [place] [address] KPC (Carbapenemase) Not Applicable Normal Not Detected [facility] ([place] Comment on above: Performed By: #### B JIN #### [facility] [address] [place] [address] Listeria monocytogenes Not detected Normal Not Detected [facility] ([place] Comment on above: Performed By: #### B JIN #### [place] [address] MCR-1 (Colistin Resistance) Not Applicable Normal Not Detected [facility] [place] Comment on above: Performed By: #### B JIN #### [place] [address] Mec A/C Detected Abnormal Not Detected [facility] [place] Comment on above: Performed By: #### B JIN #### [place] [address] Mec A/C-MREJ (MRSA) Not Applicable Normal Not Detected [facility] [place] Comment on above: Performed By: #### B JIN #### [place] [address] NDM (Carbapenemase) Not Applicable Normal Not Detected [facility] ([place] Comment on above: Performed By: #### B JIN #### [place] [address] Neisseria meningitidis (Encapsalated) Not detected Normal Not Detected [facility] [place] Comment on above: Performed By: #### B JIN #### [place] [address] OXA-48 like (Carbapenemase) Not Applicable Normal Not Detected [facility] ([place] Comment on above: Performed By: #### B JIN #### [place] [address] Proteus Not detected Normal Not Detected [facility] [place] Comment on above: Performed By: #### B JIN #### [place] [address] Pseudomonas aeruginosa Not detected Normal Not Detected [facility] ([place] Comment on above: Performed By: #### B JIN #### [place] [address] S. agalactiae Org specific cx Ql (Vag fld) Not detected Normal Not Detected [facility] ([place] Comment on above: Performed By: #### B JIN #### [facility] [address] [place] [address] Salmonella species Not detected Normal Not Detected [facility] [place] Comment on above: Performed By: #### B JIN #### [facility] [address] [place] [address] Serratia marcescens Not detected Normal Not Detected [facility] ([place] Comment on above: Performed By: #### B JIN #### [facility] [address] [place] [address] Staphylococcus Detected Abnormal Not Detected [facility] ([place] Comment on above: Performed By: #### B JIN #### [facility] [address] [place] [address] Staphylococcus aureus Not detected Normal Not Detected [facility] ([place] Comment on above: Result Comment: If S taphylococcus aureus is "Detected", an Infectious Disease physician consult is required on identification. Performed By: #### B JIN #### [address] [address] Staphylococcus epidermidis Detected Abnormal N ot Detected [facility] ([place] Comment on above: Performed By: #### B JIN #### [address] [address] Staphylococcus lugdunensis Not detected Normal N ot Detected [facility] ([place] Comment on above: Performed By: #### B JIN #### [address] [address] Stenotropomonas maltophilia Not detected Normal Not Detected [facility] [place] Comment on above: Performed By: #### B JIN #### [facility] [address] [place] [address] Streptococcus Not detected Normal Not Detected [facility] ([place] Comment on above: Performed By: #### B JIN #### [facility] [address] [place] [address] Streptococcus pneumoniae Not detected Normal Not Detected [facility] ([place] Comment on above: Performed By: #### B JIN #### [facility] [address] [place] [address] Streptococcus pyogenes Not detected Normal Not Detected [facility] ([place] Comment on above: Performed By: #### B JIN #### [facility] [address] [place] [address] Van A/B Not Applicable Normal Not Detected [facility] [place] Comment on above: Performed By: #### B JIN #### [facility] [address] [place] [address] VIM (Carbapenemase) Not Applicable Normal Not Detected [facility] ([place] Comment on above: Performed By: #### B IJN #### [facility] [address] [place] [address] Basophil percentageon 2021 Basophils/100 WBC (Bld) 0.3 % 0-1 [facility] Work Phone: Chloride [Moles/Vol] 108 mmol/L 98-107 [facility] Work Phone: Eosinophils/100 WBC (Bld) 3.2 % 0-5 [facility] Work Phone: Glucose [Mass/Vol] 109 mg/dL 74-106 [facility] Work Phone: Comment on above: Fasting Glucose resu lt from 100 to 125 mg/dL suggests IMPAIRED HOMEOSTASIS per A.D.A. criteria. Neutrophils (Bld) [#/Vol] 6.6 10*3/uL 2.0-7.7 [facility] Work Phone: Neutrophils/100 WBC (Bld) 70.4 % 47-70 [facility] Work Phone: Potassium [Moles/Vol] 4.1 mmol/L 3.5-5.1 [facility] Work Phone: Sodium [Moles/Vol] 140 mmol/L 136-145 [facility] Work Phone: WBC (Bld) [#/Vol] 9.4 10*3/uL 4.4-11.0 [facility] Work Phone: Blood erythrocytes count (nu mber/volume)on 12-29-2021 RBC (Bld) [#/Vol] 4.61 10*6/uL 4.6-6.2 [facility] [place] Work Phone: Blood hemoglobin measurement (mass/volume)on 12-29-2021 Hemoglobin (Bld) [Mass/Vol] 12.4 g/dL 13.0-16. 5 [facility] Work Phone: Blood lymphocytes/100 leukoc yteson 12-29-2021 Lymphocytes/100 WBC (Bld) 16.7 % 19-41 [facility] Work Phone: Blood monocytes/100 leukocyt eson 12-29-2021 Monocytes/100 WBC (Bld) 8.7 % 0-10 [facility] Work Phone: Blood platelet mean volumeon 12-29-2021 Platelet mean volume (Bld) [Entitic vol] 9.3 fL 6.2-12.0 [facility] Work Phone: Determination of erythrocyte mean corpuscular volume (MCV)on 12-29-2021 MCV (RBC) [Entitic vol] 82.9 fL 80-94 [facility] Work Phone: Glucose Glucometer (BldC) [M ass/Vol]on 12-29-2021 Glucose [Mass/Vol] 129 mg/dL 74-106 [facility] Work Phone: Comment on above: MANAGEMENT OF PATIEN T CARE PER NURSING PROTOCOL Hematocrit Auto (Bld) [Volum e fraction]on 12-29-2021 Hematocrit (Bld) [Volume fraction] 38.2 % 40-54 [facility] Work Phone: Laboratory - Chemistry and C hemistry - challengeon 12-29-2021 CO2 [Moles/Vol] 27.0 mmol/L 21.0-32.0 [facility] Work Phone: Urea nitrogen/Creatinine [Mass ratio] 16.5 mg/mg 10-20 [facility] Work Phone: Laboratory - Hematology and Cell countson 12-29-2021 Erythrocyte distribution width (RBC) [Entitic vol] 42.5 fL 35.1-43.9 [facility] Work Phone: Erythrocyte distribution width (RBC) [Ratio] 14.2 % 11.6-14.6 [facility] Work Phone: Immature granulocytes/100 WBC (Bld) 0.700 % 0.0-0.9 [facility] Work Phone: Comment on above: IG% - Immature Granu locytes (promyelocytes, myelocytes and metamyelocytes) > 1% indicates that a LEFT SHIFT is Present. MCH (RBC) [Entitic mass] 26.9 pg 27.0-32.0 [facility] Work Phone: Nucleated RBC/100 WBC (Bld) [Ratio] 0 % 0-5 [facility] Work Phone: MCHC Auto (RBC) [Mass/Vol]on 12-29-2021 MCHC (RBC) [Mass/Vol] 32.5 g/dL 32-36 [facility] Work Phone: No Panel Informationon 12-29 Estimated Creatinine Clearance Calc 71.11 ml/min [facility] Work Phone: Estimated GFR (MDRD) Amer 91 mL/min >60 [facility] Work Phone: Comment on above: GFR Calc Estimated GFR (MDRD) Non-Af Amer 75 mL/min >60 [facility] Work Phone: Comment on above: Non- GFR Calc Platelets bldon 12-29-2021 Platelets (Bld) [#/Vol] 177 10*3/uL 150-450 [facility] Work Phone: Serum or plasma calcium antoine urement (mass/volume)on 12-29-2021 Calcium [Mass/Vol] 8.4 mg/dL 8.5-10.1 [facility] Work Phone: Serum or plasma creatinine m easurement (mass/volume)on 12-29-2021 Creatinine [Mass/Vol] 1.03 mg/dL 0.70-1.30 [facility] Work Phone: Comment on above: The validity of the calculated GFR & GFRAA in patients over 70 years has not been determined. Clinical correlation is essential. Serum or plasma urea nitroge n measurement (mass/volume)on 12-29-2021 Urea nitrogen [Mass/Vol] 17 mg/dL 7-18 [facility] Work Phone: Thin prep Papanicolaou smear with manual screeningon 12-29-2021 Thin prep Papanicolaou smear with manual screening 5 5-15 [facility] Work Phone: Basophil percentageon 2021 Lactate [Moles/Vol] 1.9 mmol/L 0.4-2.0 [facility] [place] Work Phone: COon 12-28-2021 Carbon Monoxide Level See Comments Normal [facility] ([place]) Comment on above: Order Comment: See S eparate Report Performed By: #### L IP, MG, TROPHS, CK, LAC, GFR, CO, CMP ####[place] [address] [address] Laboratory - Chemistry and C hemistry - challengeon 12-28-2021 Magnesium [Mass/Vol] 1.8 mg/dL 1.6-2.6 [facility] Work Phone: No Panel Informationon 12-28 Troponin I High Sensitivity 23 pg/mL 3.0-78.0 [facility] Work Phone: Comment on above: Please Note: New Thania t Units and Gender Specific Reference Ranges. For more information see Policy Stat Procedure [place] High Sensitivity Troponin (TNIH) and attachments. .Auto Diffon 12-27-2021 Basophil, Absolute 0.1 10 3/mcL Normal 0.0-0.2 [facility] ([place] Comment on above: Performed By: #### L IP, MG, TROPHS, CK, LAC, GFR, CO, CMP #### [place] [id number] [place], [place] [address] Basophils/100 WBC (Bld) 0.4 % Normal 0.0-2.5 [facility] ([place]) Comment on above: Performed By: #### L IP, MG, TROPHS, CK, LAC, GFR, CO, CMP #### [address] [address] Eosinophil, Absolute 0.1 10 3/mcL Normal 0.0-0.4 [facility] ([place] Comment on above: Performed By: #### L IP, MG, TROPHS, CK, LAC, GFR, CO, CMP #### [address] [address] Eosinophils/100 WBC (Bld) 0.7 % Normal 0.0-7.0 [facility] ([place] Comment on above: Performed By: #### L IP, MG, TROPHS, CK, LAC, GFR, CO, CMP #### [address] [address] Lymphocyte, Absolute 1.4 10 3/mcL Normal 0.8-3.9 [facility] ([place] Comment on above: Performed By: #### L IP, MG, TROPHS, CK, LAC, GFR, CO, CMP #### [address] [address] Lymphocytes/100 WBC (Bld) 9.6 % Low 10.0-50.0 [facility] ([place] Comment on above: Performed By: #### L IP, MG, TROPHS, CK, LAC, GFR, CO, CMP #### [address] [address] Monocyte, Absolute 0.8 10 3/mcL Normal 0.2-1.0 [facility] ([place] Comment on above: Performed By: #### L IP, MG, TROPHS, CK, LAC, GFR, CO, CMP #### [address] [address] Monocytes/100 WBC (Bld) 5.3 % Normal 1.7-13.0 [facility] ([place]) Comment on above: Performed By: #### L IP, MG, TROPHS, CK, LAC, GFR, CO, CMP #### [address] [address] Neutrophils/100 WBC (Bld) 84.0 % High 37.0-80.0 [facility] ([place] Comment on above: Performed By: #### L IP, MG, TROPHS, CK, LAC, GFR, CO, CMP #### [place] [id number] [place], [place] [address] .GFRon 12-27-2021 GFR 43 ml/min/1.73sqm Normal [facility] ([place] Comment on above: Result Comment: GFR Population [...] CK, LAC, GFR, CO, CMP ####[place] [address] [place], [place] [address] GFR Non- 35 ml/min/1.73sqm Normal [facility] ([place] Comment on above: Result Comment: GFR Population [...] CK, LAC, GFR, CO, CMP ####[facility] [address] [place], [place] [address] .MDWon 12-27-2021 Monocyte Distribution Width 15.91 Normal 0.00-20. 00 [facility] ([place] Comment on above: Result Comment: For ED adult patients suspected of sepsis, MDW<=20.0 does not rule out sepsis or risk of sepsis Performed By: #### L IP, MG, TROPHS, CK, LAC, GFR, CO, CMP ####[facility] [address] [place], [place] [address] .NEUABSon 12-27-2021 Neutrophil, Absolute 12.6 10 3/mcL High 2.9-6.2 [facility] ([place] Comment on above: Performed By: #### L IP, MG, TROPHS, CK, LAC, GFR, CO, CMP ####[facility] [address] [place], [place] [address] Basophil percentageon 2021 Basophil percentage 3.8 mg/dL 2.5-4.9 [facility] [place] Work Phone: Bilirubin [Mass/Vol] 0.80 mg/dL 0.20-1.00 [facility] Work Phone: Comment on above: For patients on eltr ombopag therapy, use of Dimension [place] TBIL is not recommended. Protein [Mass/Vol] 6.3 g/dL 6.4-8.2 [facility] Work Phone: CBCon 12-27-2021 Erythrocyte distribution width (RBC) [Ratio] 14.9 % High 11.5-14.5 [facility] ([place] Comment on above: Performed By: #### L IP, MG, TROPHS, CK, LAC, GFR, CO, CMP #### [place] [id number] [place], [place] [address] Hematocrit (Bld) [Volume fraction] 43.2 % Normal 42.0-52.0 [facility] ([place] Comment on above: Performed By: #### L IP, MG, TROPHS, CK, LAC, GFR, CO, CMP #### [address] [address] Hgb 14.4 G/dL Normal 14.0-18.0 [facility] ([place] Comment on above: Performed By: #### L IP, MG, TROPHS, CK, LAC, GFR, CO, CMP #### [address] [address] MCH (RBC) [Entitic mass] 26.8 pg Low 27.0-31.2 [facility] ([place] Comment on above: Performed By: #### L IP, MG, TROPHS, CK, LAC, GFR, CO, CMP #### [address] [address] MCHC 33.4 G/dL Normal 31.8-35.4 [facility] ([place] Comment on above: Performed By: #### L IP, MG, TROPHS, CK, LAC, GFR, CO, CMP #### [address] [address] MCV (RBC) [Entitic vol] 80.2 fL Normal 80.0-94.0 [facility] ([place] Comment on above: Performed By: #### L IP, MG, TROPHS, CK, LAC, GFR, CO, CMP #### [address] [address] Platelet 305 10 3/mcL Normal 130-400 [facility] ([place] Comment on above: Performed By: #### L IP, MG, TROPHS, CK, LAC, GFR, CO, CMP #### [address] [address] Platelet mean volume (Bld) [Entitic vol] 7.5 fL Normal 7.4-10.4 [facility] ([place] Comment on above: Performed By: #### L IP, MG, TROPHS, CK, LAC, GFR, CO, CMP #### [address] [address] RBC 5.39 10 6/mcL Normal 4.04-6.13 [facility] ([place] Comment on above: Performed By: #### L IP, MG, TROPHS, CK, LAC, GFR, CO, CMP #### [place] [address] [place], [place] [address] WBC 15.0 10 3/mcL High 4.6-10.8 [facility] ([place] Comment on above: Performed By: #### L IP, MG, TROPHS, CK, LAC, GFR, CO, CMP #### Abbey [address] [address] CKon 12-27-2021 CK [Catalytic activity/Vol] 220 U/L Normal 39-308 [facility] ([place] Comment on above: Performed By: #### L IP, MG, TROPHS, CK, LAC, GFR, CO, CMP ####[facility] [address] [place], [place] [address] CMPon 12-27-2021 Albumin Level 3.8 G/dL Normal 3.4-4.8 [facility] ([place] Comment on above: Performed By: #### L IP, MG, TROPHS, CK, LAC, GFR, CO, CMP ####[place] [address] [address] Albumin/Globulin [Mass ratio] 1.4 {ratio} Normal 1.1-2.5 [facility] ([place] Comment on above: Performed By: #### L IP, MG, TROPHS, CK, LAC, GFR, CO, CMP ####[place] [id number] [place], [place] [address] ALP [Catalytic activity/Vol] 105 U/L Normal 40-135 [facility] ([place]) Comment on above: Performed By: #### L IP, MG, TROPHS, CK, LAC, GFR, CO, CMP ####[place] [address] [place], [place] [address] ALT [Catalytic activity/Vol] 20 U/L Normal 16-63 [facility] ([place] Comment on above: Performed By: #### L IP, MG, TROPHS, CK, LAC, GFR, CO, CMP ####[facility] [address] [place], [place] [address] AST [Catalytic activity/Vol] 16 U/L Normal 10-40 [facility] ([place] Comment on above: Performed By: #### L IP, MG, TROPHS, CK, LAC, GFR, CO, CMP ####[address] [place], [place] [address] Bili Total 0.8 mg/dL Normal 0.2-1.0 [facility] ([place]) Comment on above: Result Comment: Use of this assay is not recommended for patients undergoing treatment with eltrombopag due to the potential for falsely elevated results. Performed By: #### L IP, MG, TROPHS, CK, LAC, GFR, CO, CMP ####[place] [address] [place], [place] [address] BUN/Creatinine Ratio 12 ratio Normal 7-27 [facility] ([place] Comment on above: Performed By: #### L IP, MG, TROPHS, CK, LAC, GFR, CO, CMP ####[facility] [id number] [place], [place] [address] Calcium [Mass/Vol] 9.4 mg/dL Normal 8.4-10.2 [facility] ([place]) Comment on above: Performed By: #### L IP, MG, TROPHS, CK, LAC, GFR, CO, CMP ####[facility] [address] [place], [place] [address] Chloride [Moles/Vol] 104 mmol/L Normal 98-107 [facility] ([place] Comment on above: Performed By: #### L IP, MG, TROPHS, CK, LAC, GFR, CO, CMP ####[facility] [address] [place], [place] [address] CO2 [Moles/Vol] 22 mmol/L Low 23-31 [facility] ([place] Comment on above: Performed By: #### L IP, MG, TROPHS, CK, LAC, GFR, CO, CMP ####[place] [address] [place], [place] [address] Creatinine [Mass/Vol] 1.88 mg/dL High 0.70-1.30 [facility] ([place]) Comment on above: Performed By: #### L IP, MG, TROPHS, CK, LAC, GFR, CO, CMP ####[place] [address] [place], [place] [address] Electrolyte Balance 13.0 mEq/L Normal 4.0-15.0 [facility] ([place]) Comment on above: Performed By: #### L IP, MG, TROPHS, CK, LAC, GFR, CO, CMP ####[place] [address] [place], [place] [address] Globulin 2.8 G/dL Normal [facility] ([place] Comment on above: Performed By: #### L IP, MG, TROPHS, CK, LAC, GFR, CO, CMP ####[facility] [address] [place], [place] [address] Glucose [Mass/Vol] 205 mg/dL High 83-110 [facility] ([place]) Comment on above: Performed By: #### L IP, MG, TROPHS, CK, LAC, GFR, CO, CMP ####[facility] [address] [place], [place] [address] Potassium [Moles/Vol] 5.2 mmol/L High 3.5-5.1 [facility] ([place] Comment on above: Performed By: #### L IP, MG, TROPHS, CK, LAC, GFR, CO, CMP ####[place] [address] [place], [place] [address] Sodium [Moles/Vol] 139 mmol/L Normal 136-145 [facility] ([place]) Comment on above: Performed By: #### L IP, MG, TROPHS, CK, LAC, GFR, CO, CMP ####[facility] [address] [place], [place] [address] Total Protein 6.6 G/dL Normal 6.4-8.2 [facility] ([place] Comment on above: Performed By: #### L IP, MG, TROPHS, CK, LAC, GFR, CO, CMP ####[place] [address] [place], [place] [address] Urea nitrogen [Mass/Vol] 23 mg/dL High 7-18 [facility] ([place] Comment on above: Performed By: #### L IP, MG, TROPHS, CK, LAC, GFR, CO, CMP ####[place] [address] [id number] 12-27-2021 Date of Onset 20211225 Invalid Interpretation Code [facility] ([place] Comment on above: Performed By: #### C OVD19, FLURSV #### [place] [address] Employed in Healthcare No [facility] ([place] Comment on above: Performed By: #### C OVD19, FLURSV #### [place] [address] First Test No [facility] ([place] Comment on above: Performed By: #### C OVD19, FLURSV #### [place] [address] Hospitalized No [facility] ([place] Comment on above: Performed By: #### C OVD19, FLURSV #### [place] [address] ICU No [facility] ([place] Comment on above: Performed By: #### C OVD19, FLURSV #### [place] [address] Not [facility] ([place] Comment on above: Performed By: #### C OVD19, FLURSV #### [place] [address] Resides in Congregate Care Setting No [facility] ([place] Comment on above: Performed By: #### C OVD19, FLURSV #### [place] [address] SARS-CoV-2 (COVID-19) RNA ANGELY+probe Ql (Unsp spec) Positive Abnormal Negative [facility] ([place] Comment on above: Performed By: #### C OVD19, FLURSV #### [place] [address] SARS-CoV-2 (COVID-19) RNA ANGELY+probe Ql (Unsp spec) Normal [facility] ([place] Comment on above: Result Comment: Posi tive results are indicative of the presence of SARS-CoV-2 RNA; clinical correlation with patient history and other diagnostic information is necessary to determine patient infection status. Positive results do not rule out bacterial infection or co-infection with other viruses. The agent detected may not be the definite cause of disease. Laboratories within the [facility] and its territories are required [...] or from non-specific signals in the assay. [employer] SARS-CoV-2 Assay is a Real-Time reverse-transcriptase polymerase [...] Performed By: #### C OVD19, FLURSV #### [address] [address] Symptomatic as Defined by CDC No Normal [facility] ([place]) Comment on above: Performed By: #### C OVD19, FLURSV #### [address] [place], [place] [address] CT HEAD OR BRAIN W/O CONTRAS Ton [...] 7:53:25 PM Ordering Provider: SREEDHAR LINARES Normal [facility] [place] Carboxyhemoglobinon 12-28-19 Carboxyhemoglobin (Bld) [Mass/Vol] 1.9 % 0.0-1.5 [facility] Work Phone: Comment on above: * NON-SMOKER RANGE 1 .6 - 5.0% * LIGHT SMOKER RANGE 5.1 - 9.0% * HEAVY SMOKER RANGE FLURSVon 12-27-2021 Flu A PCR (AO) Negative Normal Negative [facility] ([place] Comment on above: Result Comment: Posi tive [...] virus (RSV) nucleic acid in nasopharyngeal swab (GRINDING MACHINE TENDER) specimens from patients with signs and symptoms of respiratory infection in conjunction with clinical and laboratory findings. The test is intended for use as an aid in the differential diagnosis of influenza A virus, influenza B virus, and RSV in humans and is not intended to detect influenza C. Performed By: #### C OVD19, FLURSV #### [address] [address] Flu B PCR (AO) Negative Normal Negative [facility] ([place] Comment on above: Result Comment: Posi tive [...] virus (RSV) nucleic acid in nasopharyngeal swab (GRINDING MACHINE TENDER) specimens from patients with signs and symptoms of respiratory infection in conjunction with clinical and laboratory findings. The test is intended for use as an aid in the differential diagnosis of influenza A virus, influenza B virus, and RSV in humans and is not intended to detect influenza C. Performed By: #### C OVD19, FLURSV #### [address] [place], [place] [address] RSV PCR (AO) Negative Normal Negative [facility] ([place] Comment on above: Result Comment: Posi tive [...] REPEAT COLLECTION AND TESTING IS RECOMMENDED. The [employer] Flu A/B & RSV Assay is a real-time polymerase chain reaction (PCR) based qualitative in vitro diagnostic test for the direct detection and differentiation of influenza A virus, influenza B virus, and respiratory syncytial virus (RSV) nucleic acid in nasopharyngeal swab (GRINDING MACHINE TENDER) specimens from patients with signs and symptoms of respiratory infection in conjunction with clinical and laboratory findings. The test is intended for use as an aid in the differential diagnosis of influenza A virus, influenza B virus, and RSV in humans and is not intended to detect influenza C. Performed By: #### C OVD19, FLURSV #### [address] [address] INR in Blood by Coagulation assayon 12-27-2021 INR Coag (Bld) [Relative time] 2.4 {INR} [facility] Work Phone: LABORATORYOrdered By: Ramiro Rascon on [...] definite cause of disease. Laboratories within the [facility] and its territories are required [...] Lactic Acid Lvl 3.0 mmol/L High 0.4-2.0 [facility] ([place]) Comment on above: Performed By: #### L AC #### Abbey Brenner [address] [place] [address] Lactic Acid Lvl 4.6 mmol/L High 0.4-2.0 [facility] ([place]) Comment on above: Performed By: #### L IP, MG, TROPHS, CK, LAC, GFR, CO, CMP ####[address] [place], [place] [address] LIPon 12-27-2021 Lipase Level 67 U/L Low 73-393 [facility] ([place]) Comment on above: Performed By: #### L IP, MG, TROPHS, CK, LAC, GFR, CO, CMP ####[address] [place], [place] [address] Laboratory - Chemistry and C hemistry - challengeon 12-27-2021 ALP [Catalytic activity/Vol] 89 U/L 45-117 [facility] Work Phone: ALT [Catalytic activity/Vol] 26 U/L 16-61 [facility] Work Phone: Globulin (S) [Mass/Vol] 3.1 g/dL 2.2-4.2 [facility] Work Phone: Laboratory - Coagulationon 0 12-27-2021 PT Coag (PPP) [Time] 25.5 s 11.7-14.9 [facility] Work Phone: MGon 12-27-2021 Magnesium [Mass/Vol] 1.3 mg/dL Low 1.8-2.4 [facility] ([place]) Comment on above: Performed By: #### L IP, MG, TROPHS, CK, LAC, GFR, CO, CMP ####[address] [place], [place] [address] PROon 12-27-2021 INR Coag (PPP) [Relative time] 2.7 {INR} High 0.9-1.2 [facility] ([place]) Comment on above: Result Comment: Tony dard [...] Performed By: #### P RO #### [id number] [place], [place] [address] PT Coag (PPP) [Time] 31.6 s High 9.7-14.3 [facility] ([place]) Comment on above: Performed By: #### P RO #### [address] [address] [place], [place] [address] Serum or plasma albumin antoine urement (mass/volume)on 12-27-2021 Albumin [Mass/Vol] 3.2 g/dL 3.2-5.0 [facility] Work Phone: Serum or plasma albumin/glob ulin mass ratioon 12-27-2021 Albumin/Globulin [Mass ratio] 1.0 {ratio} 0.9-2.4 [facility] Work Phone: TROPHSon 12-27-2021 Troponin I High Sensitivity 11.1 ng/L Normal 0.0-76.2 [facility] ([place]) Comment on above: Performed By: #### L IP, MG, TROPHS, CK, LAC, GFR, CO, CMP #### [address] [place], [place] [address] Thin prep Papanicolaou smear with manual screeningon 12-27-2021 Thin prep Papanicolaou smear with manual screening 44 U/L 15-37 [facility] Work Phone: XR CHEST 1 VIEWon [...] 6:23:59 PM Ordering Provider: SREEDHAR LINARES Normal [facility] ([place]) Absolute lymphocyte counton 12-06-2021 Lymphocytes Auto (Unsp spec) [#/Vol] 0.42 10*3/uL 0.83-4.51 [facility] Work Phone: Basophil percentageon 2021 Basophils/100 WBC (Bld) 0.4 % 0-1 [facility] Work Phone: Chloride [Moles/Vol] 105 mmol/L 98-107 [facility] Work [facility]: Eosinophils/100 WBC (Bld) 2.3 % 0-5 [facility] Work Phone: [phone] Glucose [Mass/Vol] 138 mg/dL 74-106 [facility] Work Phone: Comment on above: Fasting Glucose resu lt greater than or equal to 126 mg/dL suggests DIABETES MELLITUS per A.D.A. criteria. Neutrophils (Bld) [#/Vol] 7.5 10*3/uL 2.0-7.7 [facility] Work Phone: Neutrophils/100 WBC (Bld) 81.2 % 47-70 [facility] Work Phone: Potassium [Moles/Vol] 3.7 mmol/L 3.5-5.1 [facility] Work Phone: [phone] Sodium [Moles/Vol] 138 mmol/L 136-145 [facility] Work Phone: WBC (Bld) [#/Vol] 9.3 10*3/uL 4.4-11.0 [facility] Work Phone: [phone] Basophil percentage 0-5 SEEN /hpf 0-5 [facility] Work Phone: Bilirubin Test strip Ql (U)o n 12-06-2021 Bilirubin Ql (U) Negative Negative [facility] Work Phone: Blood erythrocytes count (nu mber/volume)on 12-06-2021 RBC (Bld) [#/Vol] 5.07 10*6/uL 4.6-6.2 [facility] [place] Work Phone: Blood hemoglobin measurement (mass/volume)on 12-06-2021 Hemoglobin (Bld) [Mass/Vol] 13.8 g/dL 13.0-16. 5 [facility] Work Phone: Blood lymphocytes/100 leukoc yteson 12-06-2021 Lymphocytes/100 WBC (Bld) 4.5 % 19-41 [facility] Work Phone: Blood manual differential co mment interpretation (narrative result)on 12-06-2021 Manual differential comment Ori (Bld) [Interp] SCANNED [facility] Work Phone: Comment on above: LYMPHOPENIA NOTED Blood monocytes/100 leukocyt eson 12-06-2021 Monocytes/100 WBC (Bld) 8.6 % 0-10 [facility] Work Phone: Blood platelet mean volumeon 12-06-2021 Platelet mean volume (Bld) [Entitic vol] 9.2 fL 6.2-12.0 [facility] Work Phone: Determination of erythrocyte mean corpuscular volume (MCV)on 12-06-2021 MCV (RBC) [Entitic vol] 83.0 fL 80-94 [facility] Work Phone: Hematocrit Auto (Bld) [Volum e fraction]on 12-06-2021 Hematocrit (Bld) [Volume fraction] 42.1 % 40-54 [facility] Work Phone: INR in Blood by Coagulation assayon 12-06-2021 INR Coag (Bld) [Relative time] 3.3 {INR} [facility] Work Phone: Ketones Test strip Ql (U)on 12-06-2021 Ketones Ql (U) 5 mg/dl Negative [facility] Work Phone: Laboratory - Chemistry and C hemistry - challengeon 12-06-2021 CO2 [Moles/Vol] 24.0 mmol/L 21.0-32.0 [facility] Work Phone: Urea nitrogen/Creatinine [Mass ratio] 14.2 mg/mg 10-20 [facility] Work Phone: Laboratory - Coagulationon 0 12-06-2021 PT Coag (PPP) [Time] 32.9 s 11.7-14.9 [facility] Work Phone: Laboratory - Hematology and Cell countson 12-06-2021 Erythrocyte distribution width (RBC) [Entitic vol] 42.4 fL 35.1-43.9 [facility] Work Phone: Erythrocyte distribution width (RBC) [Ratio] 14.0 % 11.6-14.6 [facility] Work Phone: Immature granulocytes/100 WBC (Bld) 3.000 % 0.0-0.9 [facility] Work Phone: Comment on above: IG% - Immature Granu locytes (promyelocytes, myelocytes and metamyelocytes) > 1% indicates that a LEFT SHIFT is Present. MCH (RBC) [Entitic mass] 27.2 pg 27.0-32.0 [facility] Work Phone: Nucleated RBC/100 WBC (Bld) [Ratio] 0 % 0-5 [facility] Work Phone: MCHC Auto (RBC) [Mass/Vol]on 12-06-2021 MCHC (RBC) [Mass/Vol] 32.8 g/dL 32-36 [facility] Work Phone: Mucus LM Ql (Urine sed)on Mucus Ql (Urine sed) 0 SEEN /hpf [facility] Work Phone: Nitrite Test strip Ql (U)on 12-06-2021 Nitrite Ql (U) Negative Negative [facility] Work Phone: No Panel Informationon 12-06 Estimated Creatinine Clearance Calc 61.03 ml/min [facility] Work Phone: Estimated GFR (MDRD) Amer 76 mL/min >60 [facility] Work Phone: Comment on above: GFR Calc Estimated GFR (MDRD) Non-Af Amer 63 mL/min >60 [facility] Work Phone: Comment on above: Non- GFR Calc Troponin I High Sensitivity 5 pg/mL 3.0-78.0 [facility] Work Phone: Comment on above: Please Note: New Thania t Units and Gender Specific Reference Ranges. For more information see Policy Stat Procedure [place] High Sensitivity Troponin (TNIH) and attachments. SARS-CoV-2 & FLU Antigen (Rapid) SARS-CoV-2 (COVID 19) [facility] Work Phone: Platelets bldon 12-06-2021 Platelets (Bld) [#/Vol] 229 10*3/uL 150-450 [facility] Work Phone: Protein Test strip Ql (U)on 12-06-2021 Protein Ql (U) 30 mg/dl Negative [facility] Work Phone: Serum or plasma calcium antoine urement (mass/volume)on 12-06-2021 Calcium [Mass/Vol] 8.9 mg/dL 8.5-10.1 [facility] Work Phone: Serum or plasma creatinine m easurement (mass/volume)on 12-06-2021 Creatinine [Mass/Vol] 1.20 mg/dL 0.70-1.30 [facility] Work Phone: Comment on above: The validity of the calculated GFR & GFRAA in patients over 70 years has not been determined. Clinical correlation is essential. Serum or plasma urea nitroge n measurement (mass/volume)on 12-06-2021 Urea nitrogen [Mass/Vol] 17 mg/dL 7-18 [facility] Work Phone: Squamous epithelial cells de tection in urine sediment by light microscopyon 12-06-2021 Epithelial cells.squamous LM Ql (Urine sed) 0-5 SEEN /hpf 0-5 [facility] Work Phone: Thin prep Papanicolaou smear with manual screeningon 12-06-2021 Thin prep Papanicolaou smear with manual screening 9 5-15 [facility] Work Phone: Urine blood detectionon 11-13 RBC Ql (U) 10 /ul Negative [facility] Work Phone: RBC Ql (U) 0 SEEN /hpf 0-5 [facility] Work Phone: Urine clarityon 12-06-2021 Clarity (U) Clear Clear [facility] Work Phone: Urine color determinationon 12-06-2021 Color (U) Yellow Yellow [facility] Work Phone: Urine glucose detectionon Glucose Ql (U) 100 mg/dl Normal [facility] Work Phone: Urine leukocyte esterase det ection by dipstickon 12-06-2021 Leukocyte esterase Test strip Ql (U) 25 /ul Negative [facility] Work Phone: Urine pHon 12-06-2021 pH (U) 5.0 [pH] 5.0 - 8.0 [facility] Work Phone: Urine sediment bacteria coun t by microscopy (number/high power field)on 12-06-2021 Bacteria LM.HPF (Urine sed) [#/Area] 1 /[HPF] None Seen [facility] Work Phone: Urine specific gravity measu rementon 12-06-2021 Specific gravity (U) [Rel density] 1.025 1.002-1.03 0 [facility] Work Phone: Urobilinogen Auto test strip Ql (U)on 12-06-2021 Urobilinogen Ql (U) 1 mg/dl Normal [facility] [place] Work Phone: GLUCOSE, BLOOD (POC)on 10-10 Glucose [Mass/Vol] 121 mg/dL Abnormal 74 - 99 mg/dL [facility] Glucose [Mass/Vol] 144 mg/dL Abnormal 74 - 99 mg/dL [facility] No Panel Informationon 10-10 [facility] CTA CHEST (GATED) W IVCONon 07-27-2021 CTA CHEST (GATED) W IVCON * * *Final Rep ort* * * DATE OF EXAM: Jul 27 2021 11:00AM [facility] [place] - CTA CHEST (GATED) W IVCON [...] The arch vessel branching pattern is normal. 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 Cholelithiasis without findings of acute cholecystitis. Certified Pharmacy Technician: BLAKE Transcribe Date/Time: Jul 27 2021 11:21A Dictated by : BALBIR RAYGOZA MD This examination was interpreted and the report reviewed and electronically signed by: SADE (more content not included)... Normal [facility] Laboratory - Microbiology an d Antimicrobial susceptibility Bacteria identified Cx Nom (Bld) No growth in 5 days. [facility] Work Phone: No Panel Information SARS-CoV-2 & FLU Antigen (Rapid) SARS-CoV-2 (COVID 19) [facility] Work Phone: Vital Signs Date Time Vital Sign Value Performing Clinician Jimi cheyenne 03-22-2025 09:51-0400 Body height 182.[address] Luis Caldera MD Work Phone: 2(474)797-798011 [place] [address] 03-22-2025 09:51-0400 Body mass index (BMI) [Ratio] 31.8 kg/m2 Dr. Luis Caldera MD Work Phone: 2(036)240-529611 [place] [address] 03-22-2025 09:51-0400 Body weight 106.[address] Luis Caldera MD Work Phone: 9(293)112-506011 [place] [address] 03-22-2025 09:51-0400 Diastolic blood pressure 64 mm[Hg] Dr. Luis Caldera MD Work Phone: 2(377)927-561211 [place] [address] 03-22-2025 09:51-0400 Heart rate 60 /min Dr. Luis Caldera MD Work Phone: 4(494)036-630011 [place] [address] 03-22-2025 09:51-0400 Respiratory rate 16 /min Dr. Luis Caldera MD Work Phone: 5(985)239-581911 [place] [address] 03-22-2025 09:51-0400 Systolic blood pressure 104 mm[Hg] Dr. Luis Caldera MD Work Phone: 4(974)103-617811 [place] [address] 03-03-2025 15:37-0400 Body temperature 97.2 [degF] Dr. Luis Caldera MD Work Phone: 4(412)687-355911 [place] [address] 03-03-2025 15:37-0400 Diastolic blood pressure 77 mm[Hg] Dr. Luis Caldera MD Work Phone: 4(449)363-939811 [place] [address] 03-03-2025 15:37-0400 Heart rate 63 /min Dr. Luis Caldera MD Work Phone: 2(890)775-926011 [place] [address] 03-03-2025 15:37-0400 Respiratory rate 16 /min Dr. Luis Caldera MD Work Phone: 7(104)971-870511 [place] [address] 03-03-2025 15:37-0400 SaO2% (BldA) [Mass fraction] 99 % Dr. Luis Caldera MD Work Phone: 5(154)223-076411 [place] [address] 03-03-2025 15:37-0400 Systolic blood pressure 141 mm[Hg] Dr. Luis Caldera MD Work Phone: 5(351)856-231211 [place] [address] 02-28-2025 00:00-0400 Heart rate 83 /min Dr. Luis Caldera MD Work Phone: 4(484)669-426611 [place] [address] 02-28-2025 00:00-0400 Respiratory rate 14 /min Dr. Luis Caldera MD Work Phone: 9(712)080-647411 [place] [address] 02-28-2025 00:00-0400 SaO2% (BldA) [Mass fraction] 96 % Dr. Luis Caldera MD Work Phone: 1(466)414-552111 [place] [address] 02-27-2025 22:00-0400 Diastolic blood pressure 76 mm[Hg] Dr. Luis Caldera MD Work Phone: 9(078)046-734011 [place] [address] 02-27-2025 22:00-0400 Systolic blood pressure 144 mm[Hg] Dr. Luis Caldera MD Work Phone: 0(191)387-708511 [place] [address] 02-27-2025 21:35-0400 Body temperature 98.2 [degF] Dr. Luis Caldera MD Work Phone: 7(412)957-185211 [place] [address] 02-27-2025 18:27-0400 Body height 182.[address] Luis Caldera MD Work Phone: 1(531)206-993511 [place] [address] 02-27-2025 18:27-0400 Body mass index (BMI) [Ratio] 34.1 kg/m2 Dr. Luis Caldera MD Work Phone: 6(642)064-996011 [place] [address] 02-27-2025 18:27-0400 Body weight 114.[address] Luis Caldera MD Work Phone: 8(719)073-229511 [place] [address] 02-11-2025 15:20-0400 Body temperature 98.4 [degF] Dr. Luis Caldera MD Work Phone: 4(512)372-112011 [place] [address] 02-11-2025 15:20-0400 Diastolic blood pressure 64 mm[Hg] Dr. Luis Caldera MD Work Phone: 6(027)045-932611 [place] [address] 02-11-2025 15:20-0400 Heart rate 61 /min Dr. Luis Caldera MD Work Phone: 0(120)879-670311 [place] [address] 02-11-2025 15:20-0400 Inhaled oxygen flow rate 2 L/min Dr. Luis Caldera MD Work Phone: 8(812)162-979011 [place] [address] 02-11-2025 15:20-0400 Respiratory rate 18 /min Dr. Luis Caldera MD Work Phone: 8(827)257-512211 [place] [address] 02-11-2025 15:20-0400 SaO2% (BldA) [Mass fraction] 96 % Dr. Luis Caldera MD Work Phone: 4(304)059-807511 [place] [address] 02-11-2025 15:20-0400 Systolic blood pressure 132 mm[Hg] Dr. Luis Caldera MD Work Phone: 9(469)111-935011 [place] [address] 02-11-2025 05:55-0400 Body mass index (BMI) [Ratio] 34.8 kg/m2 Dr. Luis Caldera MD Work Phone: 9(306)538-199211 [place] [address] 02-11-2025 05:55-0400 Body weight 116.[address] Luis Caldera MD Work Phone: 1(339)208-377811 [place] [address] 02-08-2025 12:01-0400 Body height 182.[address] Luis Caldera MD Work Phone: 0(339)567-583711 [place] [address] 02-03-2025 00:00-0400 Body temperature 99 [degF] Dr. Luis Caldera MD Work Phone: 5(354)680-224011 [place] [address] 02-03-2025 00:00-0400 Diastolic blood pressure 52 mm[Hg] Dr. Luis Caldera MD Work Phone: 8(676)658-834211 [place] [address] 02-03-2025 00:00-0400 Heart rate 68 /min Dr. Luis Caldera MD Work Phone: 2(716)027-428811 [place] [address] 02-03-2025 00:00-0400 Respiratory rate 20 /min Dr. Luis Caldera MD Work Phone: 7(939)883-864311 [place] [address] 02-03-2025 00:00-0400 SaO2% (BldA) [Mass fraction] 97 % Dr. Luis Caldera MD Work Phone: 0(115)472-387911 [place] [address] 02-03-2025 00:00-0400 Systolic blood pressure 127 mm[Hg] Dr. Luis Caldera MD Work Phone: 4(759)517-660511 [place] [address] 02-02-2025 19:42-0400 Body height 182.[address] Luis Caldera MD Work Phone: 5(650)464-273711 [place] [address] 02-02-2025 19:42-0400 Body mass index (BMI) [Ratio] 35.7 kg/m2 Dr. Luis Caldera MD Work Phone: 9(953)860-733611 [place] [address] 02-02-2025 19:42-0400 Body weight 119.[address] Luis Caldera MD Work Phone: 6(826)299-185011 [place] [address] 02-02-2025 19:42-0400 Inhaled oxygen flow rate 15 L/min Dr. Luis Caldera MD Work Phone: 0(557)746-535911 [place] [address] 10-12-2024 13:12-0400 Body height 182.[address] Luis Caldera MD Work Phone: 9(557)413-112911 [place] [address] 10-12-2024 13:12-0400 Body mass index (BMI) [Ratio] 32.3 kg/m2 Dr. Luis Caldera MD Work Phone: 7(154)604-809611 [place] [address] 10-12-2024 13:12-0400 Body weight 107.[address] Luis Caldera MD Work Phone: 3(186)369-343111 [place] [address] 10-12-2024 13:12-0400 Diastolic blood pressure 57 mm[Hg] Dr. Luis Caldera MD Work Phone: 8(646)900-902911 [place] [address] 10-12-2024 13:12-0400 Heart rate 65 /min Dr. Luis Caldera MD Work Phone: 4(871)658-591011 [place] [address] 10-12-2024 13:12-0400 Respiratory rate 18 /min Dr. Luis Caldera MD Work Phone: 8(684)078-482411 [place] [address] 10-12-2024 13:12-0400 SaO2% (BldA) [Mass fraction] 99 % Dr. Luis Caldera MD Work Phone: 9(888)016-017511 [place] [address] 10-12-2024 13:12-0400 Systolic blood pressure 117 mm[Hg] Dr. Luis Caldera MD Work Phone: 1(406)914-186511 [place] [address] 10-07-2023 14:18-0400 Body height 182.[address] Luis Caldera Work Phone: 7(714)368-457311 [place] [address] 10-07-2023 14:18-0400 Body mass index (BMI) [Ratio] 29.8 kg/m2 Dr. Luis Caldera Work Phone: 1(792)617-323511 [place] [address] 10-07-2023 14:18-0400 Body weight 99.[address] Luis Caldera Work Phone: 3(604)895-157111 [place] [address] 10-07-2023 14:18-0400 Diastolic blood pressure 66 mm[Hg] Dr. Luis Caldera Work Phone: 4(649)881-723411 [place] [address] 10-07-2023 14:18-0400 Heart rate 67 /min Dr. Luis Caldera Work Phone: 3(171)956-448011 [place] [address] 10-07-2023 14:18-0400 Respiratory rate 16 /min Dr. Luis Caldera Work Phone: 8(022)924-260111 [place] [address] 10-07-2023 14:18-0400 Systolic blood pressure 112 mm[Hg] Dr. Luis Caldera Work Phone: 9(439)185-851111 [place] [address] 06-03-2023 12:50-0500 Body temperature 97.2 [degF] Dr. Luis Caldera Work Phone: 8(145)898-936611 [place] [address] 06-03-2023 12:50-0500 Diastolic blood pressure 90 mm[Hg] Dr. Luis Caldera Work Phone: [facility] 06-03-2023 12:50-0500 Heart rate 85 /min Dr. Luis Caldera Work Phone: [facility] 06-03-2023 12:50-0500 Respiratory rate 16 /min Dr. Luis Caldera Work Phone: 3(609)110-023987 [place] [address] 06-03-2023 12:50-0500 SaO2% (BldA) [Mass fraction] 97 % Dr. Luis Caldera Work Phone: 6(432)556-458387 [place] [address] 06-03-2023 12:50-0500 Systolic blood pressure 134 mm[Hg] Dr. Luis Caldera Work Phone: 7(908)870-149711 [place] [address] 06-03-2023 11:45-0500 Body height 182.[address] Luis Caldera Work Phone: 1(249)002-855311 [place] [address] 06-03-2023 11:45-0500 Body mass index (BMI) [Ratio] 30.5 kg/m2 Dr. Luis Caldera Work Phone: 9(391)787-934011 [place] [address] 06-03-2023 11:45-0500 Body weight 102.[address] Luis Caldera Work Phone: [facility] 03-27-2023 13:51-0400 Body height 185.[address] Maggy Roberts Work Phone: [facility] 03-27-2023 13:51-0400 Body mass index (BMI) [Ratio] 34.7 kg/m2 Dr. Maggy Roberts Work Phone: [facility] 03-27-2023 13:51-0400 Body weight 119.[address] Maggy Roberts Work Phone: [facility] 03-27-2023 13:51-0400 Diastolic blood pressure 78 mm[Hg] Dr. Maggy Roberts Work Phone: [facility] 03-27-2023 13:51-0400 Heart rate 97 /min Dr. Maggy Roberts Work Phone: [facility] 03-27-2023 13:51-0400 Respiratory rate 18 /min Dr. Maggy Roberts Work Phone: 1(504)437-116688 [place] [address] 03-27-2023 13:51-0400 SaO2% (BldA) [Mass fraction] 98 % Dr. Maggy Roberts Work Phone: 0(812)219-229188 [place] [address] 03-27-2023 13:51-0400 Systolic blood pressure 118 mm[Hg] Dr. Maggy Roberts Work Phone: 6(003)010-869402 [address] 02-13-2023 15:02-0400 Body temperature 97 [degF] Dr. Maggy Roberts Work Phone: 5(150)734-144950 [place] [address] 02-13-2023 15:02-0400 Diastolic blood pressure 70 mm[Hg] Dr. Maggy Roberts Work Phone: 4(328)839-716050 [address] [place] [address] 02-13-2023 15:02-0400 Heart rate 82 /min Dr. Maggy Roberts Work Phone: 1(820)944-685402 [address] 02-13-2023 15:02-0400 Respiratory rate 16 /min Dr. Maggy Roberts Work Phone: 1(970)741-431888 [place] [address] 02-13-2023 15:02-0400 SaO2% (BldA) [Mass fraction] 100 % Dr. Maggy Roberts Work Phone: 4(828)572-131988 [place] [address] 02-13-2023 15:02-0400 Systolic blood pressure 134 mm[Hg] Dr. Maggy Roberts Work Phone: 5(184)252-906288 [place] [address] 02-12-2023 13:33-0400 Body height 185.[address] Maggy Roberts Work Phone: 9(546)649-418888 [place] [address] 02-12-2023 13:33-0400 Body weight 102.[address] Maggy Roberts Work Phone: 4(378)412-589588 [place] [address] 02-11-2023 20:45-0400 Body mass index (BMI) [Ratio] 30 kg/m2 Dr. Maggy Roberts Work Phone: 2(876)023-437188 [place] [address] 02-11-2023 18:53-0400 Body temperature 99.1 [degF] Dr. Maggy Roberts Work Phone: 0(558)742-338250 [place] [address] 02-11-2023 18:53-0400 Diastolic blood pressure 71 mm[Hg] Dr. Maggy Roberts Work Phone: 4(727)788-323150 [place] [address] 02-11-2023 18:53-0400 Heart rate 88 /min Dr. Maggy Roberts Work Phone: 9(694)445-249450 [place] [address] 02-11-2023 18:53-0400 Respiratory rate 18 /min Dr. Maggy Roberts Work Phone: 1(781)781-763850 [place] [address] 02-11-2023 18:53-0400 SaO2% (BldA) [Mass fraction] 93 % Dr. Maggy Roberts Work Phone: 7(758)198-932450 [place] [address] 02-11-2023 18:53-0400 Systolic blood pressure 129 mm[Hg] Dr. Maggy Roberts Work Phone: 9(947)891-415650 [place] [address] 02-11-2023 16:21-0400 Body height 185.[address] Maggy Roberts Work Phone: 7(147)841-894550 [place] [address] 02-11-2023 00:58-0400 Body temperature 98.4 [degF] Dr. Maggy Roberts Work Phone: 0(233)797-406788 [place] [address] 02-11-2023 00:58-0400 Diastolic blood pressure 62 mm[Hg] Dr. Maggy Roberts Work Phone: 7(899)676-460188 [place] [address] 02-11-2023 00:58-0400 Heart rate 74 /min Dr. Maggy Roberts Work Phone: 6(438)832-919650 [place] [address] 02-11-2023 00:58-0400 Respiratory rate 26 /min Dr. Maggy Roberts Work Phone: 1(837)278-046702 [address] 02-11-2023 00:58-0400 SaO2% (BldA) [Mass fraction] 95 % Dr. Maggy Roberts Work Phone: [facility] 02-11-2023 00:58-0400 Systolic blood pressure 124 mm[Hg] Dr. Maggy Roberts Work Phone: [facility] 02-10-2023 21:23-0400 Body height 185.[address] Maggy Roberts Work Phone: [facility] 02-10-2023 21:23-0400 Body mass index (BMI) [Ratio] 30.9 kg/m2 Dr. Maggy Roberts Work Phone: 8(447)593-684588 [place] [address] 02-10-2023 21:23-0400 Body weight 106.[address] Maggy Roebrts Work Phone: 3(544)292-187850 [place] [address] 02-05-2023 15:10-0400 Body temperature 97.4 [degF] Dr. Maggy Roberts Work Phone: 7(726)459-329550 [place] [address] 02-05-2023 15:10-0400 Diastolic blood pressure 77 mm[Hg] Dr. Maggy Roberts Work Phone: 9(401)816-361450 [place] [address] 02-05-2023 15:10-0400 Heart rate 85 /min Dr. Maggy Roberts Work Phone: 1(591)740-483750 [place] [address] 02-05-2023 15:10-0400 Respiratory rate 18 /min Dr. Maggy Roberts Work Phone: 3(064)647-907288 [place] [address] 02-05-2023 15:10-0400 SaO2% (BldA) [Mass fraction] 94 % Dr. Maggy Roberts Work Phone: 4(876)977-911788 [place] [address] 02-05-2023 15:10-0400 Systolic blood pressure 131 mm[Hg] Dr. Maggy Roberts Work Phone: [facility] 02-05-2023 05:36-0400 Body mass index (BMI) [Ratio] 30.6 kg/m2 Dr. Maggy Roberts Work Phone: 0(018)418-809088 [place] [address] 02-05-2023 05:36-0400 Body weight 105.[address] Maggy Roberts Work Phone: 3(345)507-630688 [place] [address] 02-01-2023 00:17-0400 Inhaled oxygen flow rate 2 L/min Dr. Maggy Roberts Work Phone: 2(850)196-360850 [place] [address] 01-27-2023 21:04-0400 Body temperature 98.1 [degF] Dr. Maggy Roberts Work Phone: 0(622)877-842550 [place] [address] 01-27-2023 21:04-0400 Diastolic blood pressure 48 mm[Hg] Dr. Maggy Roberts Work Phone: 9(805)281-733750 [place] [address] 01-27-2023 21:04-0400 Heart rate 79 /min Dr. Maggy Roberts Work Phone: 7(609)299-626750 [place] [address] 01-27-2023 21:04-0400 Respiratory rate 16 /min Dr. Maggy Roberts Work Phone: 0(201)734-526850 [place] [address] 01-27-2023 21:04-0400 SaO2% (BldA) [Mass fraction] 94 % Dr. Maggy Roberts Work Phone: 4(151)930-760588 [place] [address] 01-27-2023 21:04-0400 Systolic blood pressure 111 mm[Hg] Dr. Maggy Roberts Work Phone: 4(283)932-318150 [place] [address] 01-27-2023 17:58-0400 Body height 185.[address] Maggy Roberts Work Phone: 2(601)961-786350 [place] [address] 01-27-2023 17:58-0400 Body mass index (BMI) [Ratio] 30.5 kg/m2 Dr. Maggy Roberts Work Phone: 2(459)707-300188 [place] [address] 01-27-2023 17:58-0400 Body weight [address] Maggy Roberts Work Phone: 2(810)761-107750 [place] [address] 01-26-2023 14:13-0400 Body temperature 98.6 [degF] Dr. Maggy Roberts Work Phone: 9(382)176-670050 [place] [address] 01-26-2023 14:13-0400 Diastolic blood pressure 46 mm[Hg] Dr. Maggy Roberts Work Phone: 1(001)491-859450 [place] [address] 01-26-2023 14:13-0400 Heart rate 60 /min Dr. Maggy Roberts Work Phone: 3(325)989-530450 [place] [address] 01-26-2023 14:13-0400 Respiratory rate 18 /min Dr. Maggy Roberts Work Phone: 3(816)032-982150 [place] [address] 01-26-2023 14:13-0400 SaO2% (BldA) [Mass fraction] 97 % Dr. Maggy Roberts Work Phone: 7(350)038-720350 [place] [address] 01-26-2023 14:13-0400 Systolic blood pressure 134 mm[Hg] Dr. Maggy Roberts Work Phone: 7(619)889-909150 [place] [address] 01-25-2023 05:27-0400 Body mass index (BMI) [Ratio] 28.2 kg/m2 Dr. Maggy Roberts Work Phone: 3(825)878-755550 [place] [address] 01-25-2023 05:27-0400 Body weight 96.[address] Maggy Roberts Work Phone: 7(105)754-677150 [place] [address] 01-24-2023 16:00-0400 Inhaled oxygen flow rate 93 L/min Dr. Maggy Roberts Work Phone: 1(295)626-917550 [place] [address] 01-23-2023 14:42-0400 Body height 185.[address] Maggy Roberts Work Phone: 8(859)564-398550 [place] [address] 01-21-2023 11:32-0400 Body temperature 97.8 [degF] Dr. Maggy Roberts Work Phone: 3(352)629-285350 [place] [address] 01-21-2023 11:32-0400 Diastolic blood pressure 55 mm[Hg] Dr. Maggy Roberts Work Phone: 0(586)536-820550 [place] [address] 01-21-2023 11:32-0400 Heart rate 83 /min Dr. Maggy Roberts Work Phone: 3(217)905-503288 [place] [address] 01-21-2023 11:32-0400 Respiratory rate 23 /min Dr. Maggy Roberts Work Phone: 4(536)909-746450 [place] [address] 01-21-2023 11:32-0400 SaO2% (BldA) [Mass fraction] 93 % Dr. Maggy Roberts Work Phone: 9(769)346-311650 [place] [address] 01-21-2023 11:32-0400 Systolic blood pressure 133 mm[Hg] Dr. Maggy Roberts Work Phone: 0(501)736-146650 [place] [address] 01-21-2023 08:21-0400 Body height 185.[address] Maggy Roberts Work Phone: 1(238)316-820350 [place] [address] 01-21-2023 08:21-0400 Body mass index (BMI) [Ratio] 28.9 kg/m2 Dr. Maggy Roberts Work Phone: 2(235)391-607050 [place] [address] 01-21-2023 08:21-0400 Body weight 99.[address] Maggy Roberts Work Phone: 3(347)339-548450 [place] [address] 01-08-2023 11:58-0400 Body temperature 98.3 [degF] Dr. Maggy Roberts Work Phone: 9(414)163-407850 [place] [address] 01-08-2023 11:58-0400 Diastolic blood pressure 70 mm[Hg] Dr. Maggy Roberts Work Phone: 0(751)415-170950 [place] [address] 01-08-2023 11:58-0400 Heart rate 60 /min Dr. Maggy Roberts Work Phone: 8(618)304-950850 [place] [address] 01-08-2023 11:58-0400 Respiratory rate 14 /min Dr. Maggy Roberts Work Phone: 1(880)539-665350 [place] [address] 01-08-2023 11:58-0400 SaO2% (BldA) [Mass fraction] 96 % Dr. Maggy Roberts Work Phone: 8(194)741-795250 [place] [address] 01-08-2023 11:58-0400 Systolic blood pressure 108 mm[Hg] Dr. Maggy Roberts Work Phone: [facility] 01-08-2023 06:00-0400 Body mass index (BMI) [Ratio] 38.4 kg/m2 Dr. Maggy Roberts Work Phone: [facility] 01-08-2023 06:00-0400 Body weight [address] Maggy Roberts Work Phone: [facility] 01-04-2023 17:25-0400 Diastolic blood pressure 63 mm[Hg] [facility] 01-04-2023 17:25-0400 Heart rate 63 /min [facility] 01-04-2023 17:25-0400 Respiratory rate 12 /min [facility] 01-04-2023 17:25-0400 SaO2% (BldA) [Mass fraction] 98 % [facility] 01-04-2023 17:25-0400 Systolic blood pressure 138 mm[Hg] [facility] 01-04-2023 16:19-0400 Body temperature 96.9 [degF] [facility] 01-04-2023 11:15-0400 Body mass index (BMI) [Ratio] 30.4 kg/m2 [facility] 01-04-2023 11:15-0400 Body weight 104.7 kg [facility] 01-04-2023 10:59-0400 Body height 185.42 cm [facility] 09-07-2022 11:01-0500 Body height 185.4 cm Jojo Kaur MD Work Phone: [facility] 09-07-2022 11:01-0500 Body weight 113.4 kg Jojo Kaur MD Work Phone: [facility] 09-07-2022 11:01-0500 Diastolic blood pressure 57 mm[Hg] Jojo Kaur MD Work Phone: [facility] 09-07-2022 11:01-0500 Heart rate 64 /min Jojo Kaur MD Work Phone: [facility] 09-07-2022 11:01-0500 Respiratory rate 16 /min Jojo Kaur MD Work Phone: [facility] 09-07-2022 11:01-0500 SaO2% (BldA) [Mass fraction] 99 % Jojo Kaur MD Work Phone: [facility] 09-07-2022 11:01-0500 Systolic blood pressure 124 mm[Hg] Jojo Kaur MD Work Phone: [facility] 08-09-2022 16:35-0500 Body weight 113.4 kg Abdulaziz Caldera MD Work Phone: [facility] 08-09-2022 16:35-0500 Diastolic blood pressure 62 mm[Hg] Abdulaziz Caldera MD Work Phone: [facility] 08-09-2022 16:35-0500 Heart rate 64 /min Abdulaziz Caldera MD Work Phone: [facility] 08-09-2022 16:35-0500 Respiratory rate 16 /min Abdulaziz Caldera MD Work Phone: [facility] 08-09-2022 16:35-0500 SaO2% (BldA) [Mass fraction] 96 % Abdulaziz Caldera MD Work Phone: [facility] 08-09-2022 16:35-0500 Systolic blood pressure 112 mm[Hg] Abdulaziz Caldera MD Work Phone: [facility] 07-11-2022 16:22-0500 Body temperature 97.9 [degF] Dr. Luis Caldera Work Phone: [facility] Work Phone: 07-11-2022 16:22-0500 Diastolic blood pressure 65 mm[Hg] Dr. Luis Caldera Work Phone: [facility] Work Phone: 07-11-2022 16:22-0500 Heart rate 75 /min Dr. Luis Caldera Work Phone: [facility] Work Phone: 07-11-2022 16:22-0500 Respiratory rate 17 /min Dr. Luis Caldera Work Phone: [facility] Work Phone: 07-11-2022 16:22-0500 SaO2% (BldA) [Mass fraction] 96 % Dr. Luis Caldera Work Phone: [facility] Work Phone: 07-11-2022 16:22-0500 Systolic blood pressure 114 mm[Hg] Dr. Luis Caldera Work Phone: [facility] Work Phone: 07-11-2022 03:04-0500 Body weight 114.[address] Luis Caldera Work Phone: [facility] Work Phone: 07-10-2022 14:29-0500 Body height 185.[address] Luis Caldera Work Phone: [facility] Work Phone: 07-10-2022 03:04-0500 Body mass index (BMI) [Ratio] 33.6 kg/m2 Dr. Luis Caldera Work Phone: [facility] Work Phone: 07-09-2022 21:17-0500 Inhaled oxygen flow rate 97 L/min Dr. Luis Caldera Work Phone: [facility] Work Phone: 04-17-2022 11:23-0400 Body height 185.4 cm Jojo Kaur MD Work Phone: [facility] 04-17-2022 11:23-0400 Body weight 114.31 kg Jojo Kaur MD Work Phone: [facility] 04-17-2022 11:23-0400 Diastolic blood pressure 71 mm[Hg] Jojo Kaur MD Work Phone: [facility] 04-17-2022 11:23-0400 Heart rate 72 /min Jojo Kaur MD Work Phone: [facility] 04-17-2022 11:23-0400 Respiratory rate 18 /min Jojo Kaur MD Work Phone: [facility] 04-17-2022 11:23-0400 SaO2% (BldA) [Mass fraction] 98 % Jojo Kaur MD Work Phone: [facility] 04-17-2022 11:23-0400 Systolic blood pressure 116 mm[Hg] Jojo Kaur MD Work Phone: [facility] 04-16-2022 13:09-0400 Body height 185.4 cm Abdulaziz Caldera MD Work Phone: [facility] 04-16-2022 13:09-0400 Body weight 114.31 kg Abdulaziz Caldera MD Work Phone: [facility] 04-16-2022 13:09-0400 Diastolic blood pressure 72 mm[Hg] Abdulaziz Caldera MD Work Phone: [facility] 04-16-2022 13:09-0400 Heart rate 70 /min Abdulaziz Caldera MD Work Phone: [facility] 04-16-2022 13:09-0400 Respiratory rate 16 /min Abdulaziz Caldera MD Work Phone: [facility] 04-16-2022 13:09-0400 SaO2% (BldA) [Mass fraction] 98 % Abdulaziz Caldera MD Work Phone: [facility] 04-16-2022 13:09-0400 Systolic blood pressure 132 mm[Hg] Abdulaziz Caldera MD Work Phone: [facility] 04-06-2022 09:36-0400 Body weight 114.31 kg Roselia Madrigal TELEVISION PRODUCTION CLERK.MANAGER CREATIVE Work Phone: [facility] 04-06-2022 09:36-0400 Diastolic blood pressure 62 mm[Hg] Roselia Madrigal TELEVISION PRODUCTION CLERK.MANAGER CREATIVE Work Phone: [facility] 04-06-2022 09:36-0400 Heart rate 62 /min Roselia Podlogar TELEVISION PRODUCTION CLERK.MANAGER CREATIVE Work Phone: [facility] 04-06-2022 09:36-0400 Respiratory rate 16 /min Roselia Podlogar TELEVISION PRODUCTION CLERK.MANAGER CREATIVE Work Phone: [facility] 04-06-2022 09:36-0400 SaO2% (BldA) [Mass fraction] 97 % Roselia Podlogar TELEVISION PRODUCTION CLERK.MANAGER CREATIVE Work Phone: [facility] 04-06-2022 09:36-0400 Systolic blood pressure 112 mm[Hg] Roselia Podlogar TELEVISION PRODUCTION CLERK.MANAGER CREATIVE Work Phone: [facility] 03-07-2022 11:12-0400 Body weight 114.76 kg Abdulaziz Caldera MD Work Phone: [facility] 03-07-2022 11:12-0400 Diastolic blood pressure 70 mm[Hg] Abdulaziz Caldera MD Work Phone: [facility] 03-07-2022 11:12-0400 Heart rate 64 /min Abdulaziz Caldera MD Work Phone: [facility] 03-07-2022 11:12-0400 Respiratory rate 16 /min Abdulaziz Caldera MD Work Phone: [facility] 03-07-2022 11:12-0400 Systolic blood pressure 118 mm[Hg] Abdulaziz Caldera MD Work Phone: [facility] 03-05-2022 12:00-0400 Diastolic blood pressure 60 mm[Hg] David Poon PT [facility] 03-05-2022 12:00-0400 Systolic blood pressure 112 mm[Hg] David Poon PT [facility] 03-02-2022 19:48-0400 Diastolic blood pressure 79 mm[Hg] Dr. Luis Caldera Work Phone: [facility] Work Phone: 03-02-2022 19:48-0400 Heart rate 77 /min Dr. Luis Caldera Work Phone: [facility] Work Phone: 03-02-2022 19:48-0400 SaO2% (BldA) [Mass fraction] 97 % Dr. Luis Caldera Work Phone: [facility] Work Phone: 03-02-2022 19:48-0400 Systolic blood pressure 131 mm[Hg] Dr. Luis Caldera Work Phone: [facility] Work Phone: 03-02-2022 18:12-0400 Respiratory rate 17 /min Dr. Luis Caldera Work Phone: [facility] Work Phone: 03-02-2022 14:22-0400 Body height 185.[address] Luis Caldera Work Phone: [facility] Work Phone: 03-02-2022 14:22-0400 Body mass index (BMI) [Ratio] 32.3 kg/m2 Dr. Luis Caldera Work Phone: [facility] Work Phone: 03-02-2022 14:22-0400 Body temperature 98.9 [degF] Dr. Luis Caldera Work Phone: [facility] Work Phone: 03-02-2022 14:22-0400 Body weight 111.[address] Luis Caldera Work Phone: [facility] Work Phone: 01-12-2022 08:00-0400 Diastolic blood pressure 78 mm[Hg] David Lemon PT [facility] 01-12-2022 08:00-0400 Systolic blood pressure 130 mm[Hg] David Lemon PT [facility] 01-05-2022 09:56-0400 Body height 185.4 cm Jojo Kaur MD Work Phone: [facility] 01-05-2022 09:56-0400 Body weight 111.58 kg Jojo Kaur MD Work Phone: [facility] 01-05-2022 09:56-0400 Diastolic blood pressure 62 mm[Hg] Jojo Kaur MD Work Phone: [facility] 01-05-2022 09:56-0400 Heart rate 58 /min Jojo Kaur MD Work Phone: [facility] 01-05-2022 09:56-0400 Respiratory rate 16 /min Jojo Kaur MD Work Phone: [facility] 01-05-2022 09:56-0400 SaO2% (BldA) [Mass fraction] 97 % Jojo Kaur MD Work Phone: [facility] 01-05-2022 09:56-0400 Systolic blood pressure 117 mm[Hg] Jojo Kaur MD Work Phone: [facility] 01-01-2022 10:12-0400 Body temperature 97.39 [degF] Abdulaziz Caldera MD Work Phone: [facility] 01-01-2022 10:12-0400 Body weight 111.77 kg Abdulaziz Caldera MD Work Phone: [facility] 01-01-2022 10:12-0400 Diastolic blood pressure 64 mm[Hg] Abdulaziz Caldera MD Work Phone: [facility] 01-01-2022 10:12-0400 Heart rate 47 /min Abdulaziz Caldera MD Work Phone: [facility] 01-01-2022 10:12-0400 Respiratory rate 18 /min Abdulaziz Caldera MD Work Phone: [facility] 01-01-2022 10:12-0400 SaO2% (BldA) [Mass fraction] 98 % Abdulaziz Caldera MD Work Phone: [facility] 01-01-2022 10:12-0400 Systolic blood pressure 112 mm[Hg] Abdulaziz Caldera MD Work Phone: [facility] 01-01-2022 08:55-0400 Body weight 112.49 kg Justina Monique APRN.MANAGER CREATIVE Work Phone: [facility] 01-01-2022 08:55-0400 Diastolic blood pressure 74 mm[Hg] Justina Monique APRN.MANAGER CREATIVE Work Phone: [facility] 01-01-2022 08:55-0400 Heart rate 60 /min Justina Monique APRN.MANAGER CREATIVE Work Phone: [facility] 01-01-2022 08:55-0400 Respiratory rate 18 /min Justina Monique APRN.MANAGER CREATIVE Work Phone: [facility] 01-01-2022 08:55-0400 Systolic blood pressure 147 mm[Hg] Justina Monique APRN.MANAGER CREATIVE Work Phone: [facility] 12-29-2021 08:54-0400 Heart rate 69 /min Dr. Luis Caldera Work Phone: [facility] Work Phone: 12-29-2021 08:50-0400 Body temperature 97.7 [degF] Dr. Luis Caldera Work Phone: [facility] Work Phone: 12-29-2021 08:50-0400 Diastolic blood pressure 68 mm[Hg] Dr. Luis Caldera Work Phone: [facility] Work Phone: 12-29-2021 08:50-0400 Respiratory rate 18 /min Dr. Luis Caldera Work Phone: [facility] Work Phone: 12-29-2021 08:50-0400 SaO2% (BldA) [Mass fraction] 96 % Dr. Luis Caldera Work Phone: [facility] Work Phone: 12-29-2021 08:50-0400 Systolic blood pressure 139 mm[Hg] Dr. Luis Caldera Work Phone: [facility] Work Phone: 12-27-2021 22:36-0400 Body height 185.[address] Luis Caldera Work Phone: [facility] Work Phone: 12-27-2021 22:36-0400 Body mass index (BMI) [Ratio] 32.8 kg/m2 Dr. Luis Caldera Work Phone: [facility] Work Phone: 12-27-2021 22:36-0400 Body weight 112.[address] Luis Caldera Work Phone: [facility] Work Phone: 12-27-2021 21:22-0400 Diastolic blood pressure 71 mm[Hg] DR MELANIA WORKMAN MD [facility] 12-27-2021 21:22-0400 Heart rate 73 /min DR MELANIA WORKMAN MD [facility] 12-27-2021 21:22-0400 Respiratory rate 24 /min DR MELANIA WORKMAN MD [facility] 12-27-2021 21:22-0400 Systolic blood pressure 121 mm[Hg] DR MELANIA WORKMAN MD [facility] 12-27-2021 20:06-0400 Diastolic blood pressure 59 mm[Hg] DR MELANIA WORKMAN MD [facility] 12-27-2021 20:06-0400 Heart rate 80 /min DR MELANIA WORKMAN MD [facility] 12-27-2021 20:06-0400 Respiratory rate 26 /min DR MELANIA WORKMAN MD [facility] 12-27-2021 20:06-0400 Systolic blood pressure 112 mm[Hg] DR MELANIA WORKMAN MD [facility] 12-27-2021 19:19-0400 Body temperature 98.6 [degF] DR MELANIA WORKMAN MD [facility] 12-27-2021 19:19-0400 Diastolic blood pressure 76 mm[Hg] DR MELANIA WORKMAN MD [facility] 12-27-2021 19:19-0400 Heart rate 82 /min DR MELANIA WORKMAN MD [facility] 12-27-2021 19:19-0400 Respiratory rate 26 /min DR MELANIA WORKMAN MD [facility] 12-27-2021 19:19-0400 Systolic blood pressure 138 mm[Hg] DR MELANIA WORKMAN MD [facility] 12-27-2021 17:36-0400 Body temperature 102.56 [degF] DR MELANIA WORKMAN MD [facility] 12-27-2021 17:36-0400 Body weight [address] MELANIA WORKMAN MD [facility] 12-27-2021 17:36-0400 Heart rate 104 /min DR MELANIA WORKMAN MD [facility] 12-14-2021 15:10-0400 Body temperature 98.2 [degF] Abdulaziz Caldera MD Work Phone: [facility] 12-14-2021 15:10-0400 Body weight 110.77 kg Abdulaziz Caldera MD Work Phone: [facility] 12-14-2021 15:10-0400 Diastolic blood pressure 70 mm[Hg] Abdulaziz Caldera MD Work Phone: [facility] 12-14-2021 15:10-0400 Heart rate 54 /min bAdulaziz Caldera MD Work Phone: [facility] 12-14-2021 15:10-0400 Respiratory rate 16 /min Abdulaziz Caldera MD Work Phone: [facility] 12-14-2021 15:10-0400 SaO2% (BldA) [Mass fraction] 96 % Abdulaziz Caldera MD Work Phone: [facility] 12-14-2021 15:10-0400 Systolic blood pressure 130 mm[Hg] Abdulaziz Caldera MD Work Phone: [facility] 12-08-2021 16:23-0400 Diastolic blood pressure 64 mm[Hg] Abdulaziz Caldera MD Work Phone: [facility] 12-08-2021 16:23-0400 Heart rate 85 /min Abdulaziz Caldera MD Work Phone: [facility] 12-08-2021 16:23-0400 Systolic blood pressure 110 mm[Hg] Abdulaziz Caldera MD Work Phone: [facility] 12-07-2021 00:58-0400 SaO2% (BldA) [Mass fraction] 97 % [facility] Work Phone: 12-06-2021 22:59-0400 Body height 185.42 cm [facility] Work Phone: 12-06-2021 22:59-0400 Body mass index (BMI) [Ratio] 33.6 kg/m2 [facility] Work Phone: 12-06-2021 22:59-0400 Body temperature 97.7 [degF] [facility] Work Phone: 12-06-2021 22:59-0400 Body weight 115.66 kg [facility] Work Phone: 12-06-2021 22:59-0400 Diastolic blood pressure 78 mm[Hg] [facility] Work Phone: 12-06-2021 22:59-0400 Heart rate 90 /min [facility] Work Phone: 12-06-2021 22:59-0400 Respiratory rate 16 /min [facility] Work Phone: 12-06-2021 22:59-0400 Systolic blood pressure 149 mm[Hg] [facility] Work Phone: 10-23-2021 13:05-0400 Body temperature 97.3 [degF] Marcella Xavier PA-C Work Phone: [facility] 10-23-2021 13:05-0400 Body weight 114.58 kg Marcella [place] PA-C Work Phone: [facility] 10-23-2021 13:05-0400 Diastolic blood pressure 56 mm[Hg] Marcella [place] PA-C Work Phone: [facility] 10-23-2021 13:05-0400 Heart rate 85 /min Marcella Xavier PA-C Work Phone: [facility] 10-23-2021 13:05-0400 SaO2% (BldA) [Mass fraction] 98 % Marcella [place] PA-C Work Phone: [facility] 10-23-2021 13:05-0400 Systolic blood pressure 132 mm[Hg] Marcella Park PA-C Work Phone: [facility] 10-10-2021 10:07-0400 Diastolic blood pressure 68 mm[Hg] Richard Jones MD Work Phone: [facility] 10-10-2021 10:07-0400 Heart rate 69 /min Richard Jones MD Work Phone: [facility] 10-10-2021 10:07-0400 Respiratory rate 16 /min Richard Jones MD Work Phone: [facility] 10-10-2021 10:07-0400 SaO2% (BldA) [Mass fraction] 98 % Richard Jones MD Work Phone: [facility] 10-10-2021 10:07-0400 Systolic blood pressure 150 mm[Hg] Richard Jones MD Work Phone: [facility] 10-10-2021 08:01-0400 Body temperature 97 [degF] Richard Jones MD Work Phone: [facility] Encounters Encounter Date Encounter Type Care Provider Facility Start: 04-09-2025 ambulatory [facility] Facili ty:[facility] Start: 03-22-2025 End: 03-22-2025 [facility] Group Work Phone: Start: 03-22-2025 End: 03-22-[address] Luis Caldera MD Work Phone: -[facility] Start: 03-22-2025 End: 03-22-[address] Luis Caldera MD Work Phone: -[facility] Start: 03-22-2025 End: 03-22-2025 Deangelo LOONEY -[facility] Work Phone: Start: 03-16-2025 End: 03-16-[address] Luis Caldera MD Work Phone: -Cardiovascular Services Start: 03-16-2025 End: 03-16-2025 Dr. Aneesh Ac MD -[facility] Start: 03-16-2025 End: 03-16-2025 ambulatory Walter Becker Sr. Facility:[facility] Start: 03-03-2025 End: 03-03-[address] Luis Caldera MD Work Phone: -[facility] Start: 03-03-2025 End: 03-03-2025 Meghana LOZA -[facility] Work Phone: Start: 02-27-2025 End: 02-28-2025 Dr. Luis Caldera MD Work Phone: -Emergency Department Work Phone: Start: 02-27-2025 End: 02-28-2025 Emergency department patient visit Dr. Luis Caldera MD Work Phone: -Emergency Department Start: 02-26-2025 ambulatory Kuldip Harjeet Facility:[facility] Start: 02-26-2025 [facility] Start: 02-25-[address] [facility] Facility:[facility] Start: 02-25-2025 [facility] Start: 02-22-[address] [facility] [place] Start: 02-22-2025 [facility] Start: 02-18-2025 ambulatory Kuldip [place] Facility:[facility] Start: 02-18-2025 Walter [facility] Start: 02-17-2025 ambulatory Kuldip Harjeet Facility:[facility] Start: 02-17-2025 Walter [facility] Start: 02-16-[address] [facility] Facility:[facility] Start: 02-16-2025 [facility] Start: 02-15-[address] [facility] Start: 02-15-[facility]25 [facility] Start: 02-11-2025 Dr. Hugo Cervantes MD [facility] Work Phone: Start: 02-10-2025 [facility] Start: 02-10-2025 Dr. Hugo Cervantes MD [facility] Work Phone: Start: 02-10-2025 End: 02-10-[address] [facility] Start: 02-10-2025 End: 02-10-2025 Dr. Júnior Chandra MD -[facility] Work Phone: Start: 02-09-2025 [facility] Start: 02-09-2025 Dr. Hugo Cervantes MD [facility] Work Phone: Start: 02-08-2025 Dr. Hugo Cervantes MD [facility] Work Phone: Start: 02-07-2025 Dr. Hugo Cervantes MD [facility] Work Phone: Start: 02-06-2025 Dr. Hugo Cervantes MD [facility] Work Phone: Start: 02-05-2025 Dr. Hugo Cervantes MD [facility] Work Phone: Start: 02-04-2025 Dr. Hugo Cervantes MD [facility] Work Phone: Start: 02-04-2025 Meghana LOZA -[facility] Start: 02-03-[address] [facility] [place] Start: 02-03-2025 [facility] Start: 02-03-2025 Dr. Hugo Cervantes MD [facility] Work Phone: Start: 02-02-[address] [facility] [place] Start: 02-02-2025 End: 02-11-2025 Evaluation and management of inpatient Dr. Karen Aly MD -Progressive Care Unit Work Phone: Start: 02-02-2025 End: 02-11-2025 Dr. Hugo Cervantes MD -Progressive Care Unit Work Phone: Start: 12-22-2024 ambulatory Luis Caldera Facmalinda lity:[facility] Start: 12-22-2024 Registered Referred Walter Becker MD -[facility] Start: 12-22-2024 Walter Becker MD -[facility] Start: 12-16-2024 ambulatory Luis Caldera Facmalinda lity:[facility] Start: 12-16-2024 Registered Referred Walter Becker MD -[facility] Start: 12-16-2024 Walter Becker MD -[facility] Start: 11-24-2024 ambulatory Walter MAYORGA Facili ty:[facility] Start: 11-24-2024 Registered Referred Walter Becker MD -[facility] Start: 11-24-2024 Walter Becker MD -[facility] Start: 10-12-2024 End: 10-12-[address] Olga Lidia Rasheed MD -[facility] Work Phone: Start: 10-12-2024 End: 10-12-2024 ambulatory Olga Lidia Rasheed [facility] Start: 10-05-2024 End: 10-05-[address] Luis Caldera MD Work Phone: [facility] Work Phone: Start: 10-05-2024 End: 10-05-2024 Departed Referred Walter Becker MD -[facility] Start: 10-05-2024 Registered Referred Walter Becker MD -[facility] Start: 10-05-2024 End: 10-05-2024 ambulatory Walter MAYORGA Facility:[facility] Start: 09-29-2024 End: 09-29-[address] Luis Caldera MD Work Phone: [facility] Work Phone: Start: 09-29-2024 End: 09-29-2024 Departed Referred Walter Becker MD -[facility] Start: 09-29-2024 End: 09-29-2024 ambulatory Luis Caldera Facility:[facility] Start: 08-04-2024 End: 08-04-2024 Departed Referred Walter Becker MD -[facility] Start: 08-04-2024 End: 08-04-2024 ambulatory Luis Caldera Facility:[facility] Start: 07-27-2024 End: 07-27-2024 Departed Referred Walter Becker MD -[facility] Start: 07-27-2024 End: 07-27-2024 ambulatory Luis Caldera Facility:[facility] Start: 07-07-2024 End: 07-07-2024 Departed Referred Walter Becker MD -[facility] Start: 07-07-2024 End: 07-07-2024 ambulatory Luis Caldera Facility:[facility] Start: 07-01-2024 [facility] Start: 07-01-2024 Registered Referred Walter Becker MD -[facility] Start: 06-01-2024 End: 06-01-2024 ambulatory Kee Merritt Facility:[facility] Start: 10-25-[address] Adam Caldera Work Phone: [facility] Start: 10-16-2023 End: 10-16-[address] Luis Caldera Work Phone: [facility] Work Phone: Start: 10-16-2023 End: 10-16-[address] Luis Caldera Work Phone: [facility] Start: 10-16-[address] Adam Caldera Work Phone: [facility] Start: 10-08-2023 End: 10-08-[address] Luis Caldera Work Phone: [facility] Work Phone: Start: 10-08-2023 End: 10-08-[address] Luis Caldera Work Phone: [facility] Start: 10-08-[address] Adam Caldera Work Phone: [facility] Start: 10-07-2023 End: 10-07-[address] Luis Caldera Work Phone: [facility] Work Phone: Start: 10-04-2023 End: 10-04-[address] Luis Caldera Work Phone: [facility] Work Phone: Start: 10-04-2023 End: 10-04-[address] Luis Caldera Work Phone: [facility] Start: 10-01-2023 End: 10-01-[address] Luis Caldera Work Phone: [facility] Work Phone: Start: 10-01-2023 End: 10-01-[address] Luis Caldera Work Phone: [facility] Start: 10-01-2023 Registered Referred [facility] Start: 09-25-2023 End: 09-25-2023 ambulatory [facility] Work Phone: Start: 09-25-2023 End: 09-25-2023 Departed Referred [facility] Start: 09-18-2023 End: 09-18-2023 ambulatory [facility] Work Phone: Start: 09-18-2023 End: 09-18-2023 Departed Referred [facility] Start: 09-18-2023 Registered Referred [facility] Start: 09-13-2023 End: 09-13-2023 ambulatory [facility] Work Phone: Start: 09-13-2023 End: 09-13-2023 Departed Referred [facility] Start: 09-13-2023 Registered Referred [facility] Start: 09-12-2023 End: 09-12-2023 ambulatory [facility] Work Phone: Start: 09-12-2023 End: 09-12-2023 Departed Referred [facility] Start: 09-12-2023 Registered Referred [facility] Start: 09-09-2023 End: 09-09-2023 ambulatory [facility] Work Phone: Start: 09-09-2023 End: 09-09-2023 Departed Referred [facility] Start: 09-09-2023 Registered Referred [facility] Start: 08-26-2023 End: 08-26-2023 ambulatory [facility] Work Phone: Start: 08-26-2023 End: 08-26-2023 Departed Referred [facility] Start: 08-26-2023 Registered Referred [facility] Start: 08-19-2023 End: 08-19-2023 ambulatory [facility] Work Phone: Start: 08-19-2023 End: 08-19-2023 Departed Referred [facility] Start: 08-19-2023 Registered Referred [facility] Start: 08-12-2023 End: 08-12-2023 ambulatory [facility] Work Phone: Start: 08-12-2023 End: 08-12-2023 Departed Referred [facility] Start: 08-12-2023 Registered Referred [facility] Start: 08-05-2023 End: 08-05-2023 ambulatory [facility] Work Phone: Start: 08-05-2023 End: 08-05-2023 Departed Referred [facility] Start: 08-05-2023 Registered [facility] Start: 07-29-2023 End: 07-29-2023 ambulatory [facility] Work Phone: Start: 07-29-2023 End: 07-29-2023 Departed Referred [facility] Start: 07-22-2023 End: 07-22-2023 ambulatory [facility] Work Phone: Start: 07-22-2023 End: 07-22-2023 Departed Referred [facility] Start: 07-22-[address] Adam Caldera Work Phone: [facility] Start: 07-19-2023 End: 07-19-2023 ambulatory [facility] Work Phone: Start: 07-19-2023 End: 07-19-2023 Departed Referred [facility] Start: 07-19-[address] Adam Caldera Work Phone: [facility] Start: 07-17-2023 End: 07-17-2023 ambulatory [facility] Work Phone: Start: 07-17-2023 End: 07-17-2023 Departed Referred [facility] Start: 07-17-[address] Adam Caldera Work Phone: [facility] Start: 07-10-2023 End: 07-10-[address] Luis Caldera Work Phone: [facility] Work Phone: Start: 07-10-2023 End: 07-10-[address] Luis Caldera Work Phone: [facility] Start: 07-03-2023 End: 07-03-[address] Luis Caldera Work Phone: [facility] Work Phone: Start: 07-03-2023 End: 07-03-[address] Luis Caldera Work Phone: [facility] Start: 07-03-[address] Adam Caldera Work Phone: [facility] Start: 06-26-2023 End: 06-26-[address] Luis Caldera Work Phone: [facility] Work Phone: Start: 06-26-2023 End: 06-26-[address] Luis Caldera Work Phone: [facility] Start: 06-26-[address] Adam Caldera Work Phone: [facility] Start: 06-25-2023 End: 06-25-[address] Luis Caldera Work Phone: [facility] Work Phone: Start: 06-25-2023 End: 06-25-[address] Luis Caldera Work Phone: [facility] Start: 06-25-[address] Adam Caldera Work Phone: [facility] Start: 06-24-2023 End: 06-24-[address] Luis Caldera Work Phone: [facility] Work Phone: Start: 06-24-2023 End: 06-24-[address] Luis Caldera Work Phone: [facility] Start: 06-24-[address] Adam Caldera Work Phone: [facility] Start: 06-17-2023 End: 06-17-[address] Luis Caldera Work Phone: [facility] Work Phone: Start: 06-17-2023 End: 06-17-[address] Luis Caldera Work Phone: [facility] Start: 06-10-2023 End: 06-10-[address] Luis Caldera Work Phone: [facility] Work Phone: Start: 06-10-2023 End: 06-10-[address] Luis Caldera Work Phone: [facility] Start: 06-10-[address] Adam Caldera Work Phone: [facility] Start: 06-03-2023 End: 06-03-2023 Admission to same day surgery center Dr. Luis Caldera Work Phone: [facility] Start: 06-03-2023 End: 06-03-[address] Luis Caldera Work Phone: [facility] Work Phone: Start: 06-03-2023 End: 06-03-2023 Dr. Luis Caldera Work Phone: [facility] Start: 05-20-2023 End: 05-20-[address] Luis Caldera Work Phone: [facility] Work Phone: Start: 05-20-2023 End: 05-20-[address] Luis Caldera Work Phone: [facility] Start: 05-20-2023 End: 05-20-2023 Dr. Luis Caldera Work Phone: [facility] Start: 05-15-2023 End: 05-15-[address] Luis Caldera Work Phone: [facility] Work Phone: Start: 05-15-2023 End: 05-15-[address] Luis Caldera Work Phone: [facility] Start: 05-15-2023 End: 05-15-2023 Dr. Luis Caldera Work Phone: [facility] Start: 05-06-2023 End: 05-06-[address] Luis Caldera Work Phone: [facility] Work Phone: Start: 05-06-2023 End: 05-06-[address] Luis Caldera Work Phone: [facility] Start: 05-06-2023 End: 05-06-2023 Dr. Luis Caldera Work Phone: [facility] Start: 04-29-2023 End: 04-29-[address] Maggy Roberts Work Phone: [facility] Work Phone: Start: 04-29-2023 End: 04-29-[address] Luis Caldera Work Phone: [facility] Start: 04-29-2023 End: 04-29-2023 Dr. Maggy Roberts Work Phone: [facility] Start: 04-15-2023 End: 04-15-[address] Luis Caldera Work Phone: [facility] Start: 04-15-2023 End: 04-15-2023 Dr. Maggy Roberts Work Phone: [facility] Start: 04-09-2023 End: 04-09-[address] Maggy Roberts Work Phone: [facility] Work Phone: Start: 04-09-2023 End: 04-09-[address] Luis Caldera Work Phone: [facility] Start: 04-09-2023 End: 04-09-2023 Dr. Maggy Roberts Work Phone: [facility] Start: 04-08-2023 End: 04-08-[address] Luis Caldera Work Phone: [facility] Start: 04-08-2023 End: 04-08-2023 Dr. Maggy Roberts Work Phone: [facility] Start: 04-01-2023 End: 04-01-[address] Maggy Roberts Work Phone: [facility] Work Phone: Start: 04-01-2023 End: 04-01-[address] Luis Caldera Work Phone: [facility] Start: 04-01-2023 End: 04-01-2023 Dr. Maggy Roberts Work Phone: [facility] Start: 03-27-2023 End: 03-27-[address] Luis Caldera Work Phone: [facility] Work Phone: Start: 03-27-2023 End: 03-27-2023 Dr. Maggy Roberts Work Phone: [facility] Work Phone: Start: 03-25-2023 End: 03-25-[address] Maggy Roberts Work Phone: [facility] Work Phone: Start: 03-25-2023 End: 03-25-[address] Luis Caldera Work Phone: [facility] Start: 03-25-2023 End: 03-25-2023 Dr. Maggy Roberts Work Phone: [facility] Start: 03-11-2023 End: 03-11-[address] Maggy Roberts Work Phone: [facility] Work Phone: Start: 03-11-2023 End: 03-11-[address] Luis Caldera Work Phone: [facility] Start: 03-11-2023 End: 03-11-2023 Dr. Maggy Roberts Work Phone: [facility] Start: 03-04-[address] Adam Caldera Work Phone: [facility] Start: 03-04-2023 Dr. Maggy Bonilla line Work Phone: [facility] Start: 03-01-[address] Adam Caldera Work Phone: [facility] Start: 03-01-2023 Dr. Maggy Bonilla line Work Phone: [facility] Start: 02-25-[address] Adam Caldera Work Phone: [facility] Start: 02-25-2023 Dr. Maggy Bonilla line Work Phone: [facility] Start: 02-22-[address] Adam Caldera Work Phone: [facility] Start: 02-22-2023 Dr. Maggy benavides Work Phone: [facility] Start: 02-20-2023 Dr. Maggy Bonilla line Work Phone: [facility] Start: 02-18-2023 End: 02-18-2023 Dr. Maggy Roberts Work Phone: [facility] Work Phone: Start: 02-14-2023 Dr. Maggy Bonilla line Work Phone: [facility] Start: 02-13-2023 Dr. Maggy Bonilla line Work Phone: [facility] Work Phone: Start: 02-12-2023 Dr. Maggy Bonilla line Work Phone: [facility] [facility] Work Phone: Start: 02-12-2023 Dr. Maggy Bonilla line Work Phone: [facility] Start: 02-11-2023 End: 02-13-2023 Evaluation and management of inpatient Dr. Maggy Roberts Work Phone: [facility] Work Phone: Start: 02-11-2023 End: 02-13-2023 Dr. Maggy Roberts Work Phone: [facility]-Medical Surgical 3 Work Phone: Start: 02-10-2023 End: 02-11-2023 Emergency department patient visit Dr. Maggy Roberts Work Phone: [facility] Work Phone: Start: 02-10-2023 End: 02-11-2023 Dr. Maggy Roberts Work Phone: [facility]-Emergency Department Work Phone: Start: 02-07-2023 Dr. Maggy Bonilla line Work Phone: [facility] Start: 02-05-2023 Dr. Maggy Bonilla line Work Phone: [facility] Work Phone: Start: 02-05-2023 End: 02-05-2023 Dr. Maggy Roberts Work Phone: [facility] Work Phone: Start: 02-04-2023 Dr. Maggy Bonilla line Work Phone: [facility] Work Phone: Start: 02-03-2023 End: 02-05-2023 Dr. Maggy Roberts Work Phone: [facility] Work Phone: Start: 02-02-2023 Dr. Maggy Bonilla line Work Phone: [facility] Work Phone: Start: 02-01-2023 Dr. Maggy Bonilla line Work Phone: [facility] Start: 02-01-2023 Dr. Maggy Bonilla line Work Phone: [facility] Work Phone: Start: 01-31-2023 Dr. Maggy Bonilla line Work Phone: [facility] Start: 01-31-2023 Dr. Maggy Bonilla line Work Phone: [facility] Work Phone: Start: 01-30-2023 Dr. Maggy Bonilla line Work Phone: [facility] Start: 01-30-2023 Dr. Maggy Bonilla line Work Phone: [facility] Start: 01-29-2023 Dr. Maggy Bonilla line Work Phone: [facility] Work Phone: Start: 01-29-2023 Dr. Maggy Bonilla line Work Phone: [facility] Start: 01-28-2023 Telephone encounter Luis Caldera MD Work Phone: [facility] [place] Comment on above: Immunizations Start: 01-28-2023 Dr. Maggy Bonilla line Work Phone: [facility] Work Phone: Start: 01-28-2023 End: 01-28-2023 Dr. Maggy Roberts Work Phone: [facility] Work Phone: Start: 01-27-2023 Evaluation and management of inpatient Dr. Maggy Roberts Work Phone: [facility] Work Phone: Start: 01-27-2023 End: 02-05-2023 Dr. Maggy Roberts Work Phone: [facility] Work Phone: Start: 01-26-2023 Non-patient / Non-visit Dr. Eddie Roberts Work Phone: [facility] Start: 01-26-2023 Dr. Maggy Bonilla line Work Phone: [facility] Start: 01-26-2023 Non-patient / Non-visit Dr. Eddie Roberts Work Phone: [facility] Work Phone: Start: 01-26-2023 Dr. Maggy Bonilla line Work Phone: [facility] Work Phone: Start: 01-25-2023 Non-patient / Non-visit Dr. Eddie Roberts Work Phone: [facility] Start: 01-25-2023 Dr. Maggy Bonilla line Work Phone: [facility] Start: 01-25-2023 Non-patient / Non-visit Dr. Eddie Roberts Work Phone: [facility] Work Phone: Start: 01-25-2023 Dr. Maggy Bonilla line Work Phone: [facility] Work Phone: Start: 01-24-2023 Non-patient / Non-visit Dr. Eddie Roberts Work Phone: [facility] Start: 01-24-2023 Dr. Maggy benavides Work Phone: [facility] Start: 01-24-2023 Telephone encounter Luis Caldera MD Work Phone: [facility] Comment on above: Patient Update Start: 01-24-2023 Non-patient / Non-visit Dr. Eddie Roberts Work Phone: [facility] Start: 01-24-2023 Dr. Maggy Bonilla line Work Phone: [facility] Start: 01-24-2023 Non-patient / Non-visit Dr. Eddie Roberts Work Phone: [facility] Work Phone: Start: 01-24-2023 End: 01-24-2023 Dr. Maggy Roberts Work Phone: [facility] Work Phone: Start: 01-23-2023 Non-patient / Non-visit Dr. Eddie Roberts Work Phone: [facility] Start: 01-23-2023 Dr. Maggy Bonilla line Work Phone: [facility] Start: 01-23-2023 Non-patient / Non-visit Dr. Eddie Roberts Work Phone: [facility] Start: 01-23-2023 Dr. Maggy Bonilla line Work Phone: [facility] Start: 01-22-2023 Non-patient / Non-visit Dr. Eddie Roberts Work Phone: [facility] Start: 01-22-2023 Dr. Maggy Bonilla line Work Phone: [facility] Start: 01-22-2023 Non-patient / Non-visit Dr. Eddie Roberts Work Phone: [facility] Start: 01-22-2023 Dr. Maggy Bonilla line Work Phone: [facility] Start: 01-22-2023 Non-patient / Non-visit Dr. Eddie Roberts Work Phone: [facility] Work Phone: Start: 01-22-2023 Dr. Maggy Bonilla line Work Phone: [facility] Work Phone: Start: 01-21-2023 End: 01-21-2023 Dr. Maggy Roberts Work Phone: [facility] Work Phone: Start: 01-21-2023 Non-patient / Non-visit Dr. Eddie Roberts Work Phone: [facility] Start: 01-21-2023 Dr. Maggy Bonilla line Work Phone: [facility] Start: 01-21-2023 Non-patient / Non-visit Dr. Eddie Roberts Work Phone: [facility] Work Phone: Start: 01-21-2023 Dr. Maggy Bonilla line Work Phone: [facility] Work Phone: Start: 01-21-2023 End: 01-26-2023 Evaluation and management of inpatient Dr. Maggy Roberts Work Phone: [facility] Work Phone: Start: 01-21-2023 End: 01-26-2023 Dr. Maggy Roberts Work Phone: [facility] [facility] Work Phone: Start: 01-08-2023 Non-patient / Non-visit Dr. Eddie Roberts Work Phone: [facility] Work Phone: Start: 01-08-2023 Dr. Maggy Bonilla line Work Phone: [facility] Work Phone: Start: 01-07-2023 Non-patient / Non-visit Dr. Eddie Roberts Work Phone: [facility] Work Phone: Start: 01-07-2023 Dr. Maggy Bonilla line Work Phone: [facility] Work Phone: Start: 01-06-2023 Non-patient / Non-visit Dr. Eddie Roberts Work Phone: [facility] Work Phone: Start: 01-06-2023 Dr. Maggy Bonilla line Work Phone: [facility] Work Phone: Start: 01-05-2023 End: 01-08-2023 Evaluation and management of inpatient [facility] Maggy [facility] Work Phone: Start: 01-05-2023 End: 01-08-2023 Dr. Maggy Roberts [facility] Work Phone: Start: 01-05-2023 Non-patient / Non-visit Dr. Eddie Roberts Work Phone: [facility] Work Phone: Start: 01-05-2023 Dr. Maggy benavides Work Phone: [facility] Work Phone: Start: 01-04-2023 Evaluation and management of inpatient [facility] Start: 01-04-2023 Non-patient / Non-visit Dr. Eddie Roberts Work Phone: [facility] Work Phone: Start: 01-04-2023 observation encounter [facility] Work Phone: Start: 01-04-2023 Dr. Maggy Bonilla line Work Phone: [facility] Work Phone: Start: 01-04-2023 Telephone encounter Luis Caldera MD Work Phone: [facility] Comment on above: Appointment Start: 01-03-2023 Telephone encounter Luis Caldera MD Work Phone: [facility] Comment on above: Appointment; Patient Update Start: 01-03-2023 End: 01-03-2023 ambulatory Justina O'Rafa PT [facility] Comment on above: Spinal stenosis, lum bar region, without neurogenic claudication (Primary Dx); Primary osteoarthritis of both knees Start: 12-31-2022 End: 12-31-2022 ambulatory Ira Kashuba BRICKMASON Work Phone: [facility] Comment on above: Spinal stenosis, lum bar region, without neurogenic claudication (Primary Dx); Primary osteoarthritis of both knees Start: 12-27-2022 End: 12-27-2022 ambulatory Ira Kashuba BRICKMASON Work Phone: [facility] Comment on above: Spinal stenosis, lum bar region, without neurogenic claudication (Primary Dx); Primary osteoarthritis of both knees Start: 12-24-2022 End: 12-24-2022 ambulatory Justina O'Rafa PT [facility] Comment on above: Spinal stenosis, lum bar region, without neurogenic claudication (Primary Dx); Primary osteoarthritis of both knees Start: 12-17-2022 End: 12-17-2022 ambulatory Justina O'Rafa PT [facility] Comment on above: Spinal stenosis, lum bar region, without neurogenic claudication (Primary Dx); Primary osteoarthritis of both knees Start: 12-14-2022 End: 12-14-2022 ambulatory Justina O'Rafa PT [facility] Comment on above: Spinal stenosis, lum bar region, without neurogenic claudication (Primary Dx); Primary osteoarthritis of both knees Start: 12-12-2022 End: 12-12-2022 ambulatory Justina O'Rafa PT [facility] Comment on above: Spinal stenosis, lum bar region, without neurogenic claudication (Primary Dx); Primary osteoarthritis of both knees Start: 11-20-2022 Refill Abdulaziz Caldera MD Work Phone: [facility] Comment on above: Refill Request Start: 11-19-2022 Telephone encounter Valencia Pascual MA [facility] Comment on above: Anticoagulation Start: 10-22-2022 End: 10-22-2022 Patient encounter procedure Zachary Swaantmarianne Work Phone: Podiatry Comment on above: Onychomycosis (Prima ry Dx); Pain in toe of left foot; Amputated toe of right foot (HCC); Diabetic polyneuropathy associated with type 2 diabetes mellitus (HCC) Start: 09-25-2022 Telephone encounter Luis Caldera MD Work Phone: [facility] Comment on above: Anticoagulation Start: 09-07-2022 Telephone encounter Jojo galan MD Work Phone: Neurology Comment on above: Appointment Start: 09-07-2022 End: 09-07-2022 Office outpatient visit 25 minutes Jojo Kaur MD Work Phone: Neurology Comment on above: Driving safety issue (Primary Dx) Start: 08-28-2022 Telephone encounter Luis Caldera MD Work Phone: [facility] Comment on above: Anticoagulation Start: 08-16-2022 Refill Abdulaziz Caldera MD Work Phone: [facility] [place] Comment on above: Refill Request Start: 08-14-2022 Telephone encounter Luis Caldera MD Work Phone: [facility] [place] Comment on above: Anticoagulation Start: [...] stream; Acquired absence of right great toe ([facility]); Type 2 diabetes mellitus with stage 3a chronic kidney disease, with long-term current use of insulin ([facility]); 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 [...] [facility] Comment on above: Anticoagulation Start: 07-26-2022 Telephone encounter Luis Caldera MD Work Phone: [facility] [place] Comment on above: Home Health-Nursing Update Start: 07-25-2022 Refill Abdulaziz Caldera MD Work Phone: [facility] [place] Comment on above: Refill Request Start: 07-17-2022 Telephone encounter Luis Caldera MD Work Phone: [facility] Comment on above: [facility] PT POC OT plan of care Start: 07-13-2022 Telephone encounter Luis Caldera MD Work Phone: [facility] Comment on above: Nursing Plan of C are Update Start: 07-12-2022 Telephone encounter Luis Caldera MD Work Phone: [facility] Comment on above: Orders Start: 07-11-2022 Non-patient / Non-visit Dr. Praveen Caldera Work Phone: [facility] Start: 07-11-2022 Non-patient / Non-visit Dr. Praveen Caldera Work Phone: [facility] Start: 07-10-2022 Non-patient / Non-visit Dr. Praveen Caldera Work Phone: [facility] Start: 07-10-2022 Non-patient / Non-visit Dr. Praveen Caldera Work Phone: [facility] Start: 07-09-2022 End: 07-11-2022 Evaluation and management of inpatient Dr. Luis Caldera Work Phone: [facility] Start: 07-09-2022 Refill Amanda Cunningham [facility] Comment on above: Opened In Error Refill Request Start: 07-05-2022 E-mail encounter fro m caregiver Jojo Kaur MD Work Phone: [facility] Start: 07-05-2022 Patient encounter procedure Jojo Kaur MD Work Phone: Neurology Comment on above: Appointment Needs Re scheduled: 08/21/[address] Kaur Start: 06-25-2022 Refill Abdulaziz Caldera MD Work Phone: [facility] Comment on above: Refill Request Start: 05-16-2022 Refill Abdulaziz Caldera MD Work Phone: [facility] Comment on above: Refill Request Start: 04-17-2022 Telephone encounter Justina fry DEMURRAGE MAN Work Phone: Adult Psychology Comment on above: behavioral health so cial work Start: 04-17-2022 End: 04-17-2022 Patient encounter procedure Jojo Kaur MD Work Phone: Neurology Comment on above: Generalized anxiety disorder (Primary Dx); Polyneuropathy Start: 04-16-2022 End: 04-16-2022 Patient encounter procedure Abdulaziz Caldera MD Work Phone: [facility] Comment on above: Type 2 [...] 04-06-2022 End: 04-06-2022 Patient encounter procedure Roselia Podlogdavid GARCIAMANAGER CREATIVE Work Phone: [facility] Comment on above: Generalized weakness (Primary Dx); Encounter for immunization; Mild depression Start: 04-04-2022 Telephone encounter Luis Caldera MD Work Phone: [facility] Comment on above: Anticoagulation Start: 03-30-2022 End: 03-30-2022 Patient encounter procedure Zachary Obregon Work Phone: Podiatry Comment on above: Onychomycosis (Prima ry Dx); Pain in toe of left foot; Amputated toe of right foot (HCC); Diabetic polyneuropathy associated with type 2 diabetes mellitus (HCC) Start: 03-23-2022 End: 03-23-2022 ambulatory [facility] Comment on above: Abnormality of gait due to impairment of balance (Primary Dx) Start: 03-22-2022 Refill Abdulaziz Caldera MD Work Phone: [facility] [place] Comment on above: Refill Request Start: 03-15-2022 End: 03-15-2022 ambulatory Karen Weber BRICKMASON Work Phone: [facility] Comment on above: Abnormality of gait due to impairment of balance (Primary Dx) Start: 03-12-2022 End: 03-12-2022 ambulatory Karen Weber BRICKMASON Work Phone: [facility] Comment on above: Abnormality of gait due to impairment of balance (Primary Dx) Start: 03-09-2022 End: 03-09-2022 ambulatory David Lemon PT [facility] Comment on above: Abnormality of gait due to impairment of balance (Primary Dx) Start: 03-07-2022 Telephone encounter Luis Caldera MD Work Phone: [facility] Comment on above: Anticoagulation Start: 03-07-2022 End: 03-07-[address] Luis Caldera Work Phone: [facility] Work Phone: Start: 03-07-2022 End: 03-07-[address] Luis Caldera Work Phone: [facility]Laboratory, Specimen Start: 03-07-2022 End: 03-07-2022 Patient encounter procedure Abdulaziz Caldera MD Work Phone: [facility] Comment on above: Generalized weakness (Primary Dx); Supratherapeutic INR; ANTHONY (acute kidney injury) ([facility]) Start: 03-05-2022 End: 03-05-2022 ambulatory David Lemon PT [facility] Comment on above: Abnormality of gait due to impairment of balance (Primary Dx) Start: 03-02-2022 End: 03-02-2022 Emergency department patient visit Dr. Luis Caldera Work Phone: [facility] Start: 03-02-2022 End: 03-02-2022 ambulatory David Lemon PT [facility] Comment on above: Abnormality of gait due to impairment of balance (Primary Dx) Start: 02-26-2022 End: 02-26-2022 ambulatory David Lemon PT [facility] Comment on above: Abnormality of gait due to impairment of balance (Primary Dx) Start: 02-23-2022 End: 02-23-2022 ambulatory Karen Weber BRICKMASON Work Phone: [facility] Comment on above: Abnormality of gait due to impairment of balance (Primary Dx) Start: 02-14-2022 End: 02-14-2022 ambulatory David Lemon PT [facility] Comment on above: Abnormality of gait due to impairment of balance (Primary Dx) Start: 02-09-2022 End: 02-09-2022 ambulatory David Lemon PT [facility] Comment on above: Abnormality of gait due to impairment of balance (Primary Dx) Start: 02-06-2022 Refill Abdulaziz Caldera MD Work Phone: [facility] Comment on above: Prescription Refills Start: 02-02-2022 End: 02-02-2022 ambulatory Karenevelyn Wardter BRICKMASON Work Phone: [facility] Comment on above: Abnormality of gait due to impairment of balance (Primary Dx) Start: 01-31-2022 Refill Abdulaziz Caldera MD Work Phone: [facility] Comment on above: Refill Request Start: 01-30-2022 End: 01-30-2022 ambulatory Karen Weber BRICKMASON Work Phone: [facility] Comment on above: Abnormality of gait due to impairment of balance (Primary Dx) Start: 01-23-2022 End: 01-23-2022 ambulatory Karen Weber BRICKMASON Work Phone: [facility] Comment on above: Abnormality of gait due to impairment of balance (Primary Dx) Refill Request; Refi ll Request Start: 01-17-2022 Telephone encounter Luis Caldera MD Work Phone: [facility] Comment on above: Question Start: 01-12-2022 End: 01-12-2022 ambulatory David Lemon PT [facility] Comment on above: Abnormality of gait due to impairment of balance (Primary Dx) Start: 01-11-2022 Telephone encounter Roselia miguel APRN.MANAGER CREATIVE Work Phone: [facility] [place] Comment on above: Patient Question; Me dication Question; Referral Request Start: 01-10-2022 Telephone encounter Justina Monique APRN.MANAGER CREATIVE Work Phone: Cardiology Comment on above: Results [...] type Start: 01-02-2022 Telephone encounter Justina Monique APRN.MANAGER CREATIVE Work Phone: [facility] Comment on above: Results Start: 01-01-2022 End: 01-01-2022 Patient encounter procedure Justina Monique APRN.MANAGER CREATIVE Work Phone: Cardiology Comment on above: Hyperlipidemia with target LDL less than 100 (Primary Dx); Primary hypertension; Thoracic aortic aneurysm without rupture (HCC); Coronary artery disease involving [place] coronary artery of [place] heart without angina pectoris; Syncope, unspecified syncope [...] / Non-visit Dr. Praveen Caldera Work Phone: [facility] Start: 12-28-2021 Non-patient / Non-visit Dr. Praveen Caldera Work Phone: [facility] Start: 12-28-2021 End: 12-29-2021 Evaluation and management of inpatient Dr. Luis Caldera Work Phone: [facility] Start: 12-27-2021 Non-patient / Non-visit Dr. Praveen Caldera Work Phone: [facility] Start: 12-27-2021 End: 12-27-2021 Emergency department patient visit DR. MELANIA WORKMAN MD. Facility:[facility] Start: 12-27-2021 End: 12-27-2021 Emergency department patient visit DR MELANIA WORKMAN MD [facility] Start: 12-14-2021 End: 12-14-2021 Patient encounter procedure Abdulaziz Caldera MD Work Phone: [facility] Comment on above: COVID-19 (Primary Dx ) Start: 12-08-2021 End: 12-08-2021 ambulatory Abdulaziz Caldera MD Work Phone: [facility] Comment on above: COVID-19 (Primary Dx ) Start: 12-08-2021 End: 12-08-2021 Telemedicine consultation with patient Abdulaziz Caldera MD Work Phone: [facility] Start: 12-08-2021 Telephone encounter Luis Caldera MD Work Phone: [facility] Comment on above: Patient Question Start: 12-06-2021 End: 12-07-2021 Emergency department patient visit [facility] Start: 11-20-2021 Refill Abdulaziz Caldera MD [...] Date Procedure Procedure Detail Performing Clinician Start: 03-16-2025 Mean corpuscular hemoglobin concentration determination Dr. Luis Caldera MD Work Phone: Start: 03-16-2025 Platelet mean volume determination Dr. Gabrielle Caldera MD Work Phone: Start: 02-27-2025 X-ray of chest, PA and [...] Gabrielle Caldera MD Work Phone: Start: 02-27-[address] Luis Caldera MD Work Phone: Start: 02-27-2025 Identification procedure for living organism Dr. Luis Caldera MD Work Phone: Start: 02-27-[address] Luis Caldera MD Work Phone: Start: 02-18-2025 Mean [...] Gabrielle Caldera MD Work Phone: Start: 02-05-2025 End: 02-05-[address] Acid fast bacilli culture Dr. Luis Caldera MD Work Phone: Start: 02-05-[address] Camron Caldera MD Work Phone: Start: 02-05-[address] acid [address] Socrates Caldera MD Work Phone: Start: 02-05-[address] Luis Caldera MD Work Phone: Start: 02-05-[address] Luis Caldera MD Work Phone: Start: 02-05-2025 End: 02-05-2025 Microbial culture, routine Dr. Ramón Caldera MD Work Phone: Start: 02-05-[address] Luis Caldera MD Work Phone: Start: 02-05-2025 Amputation [...] QUADRIVALENT HIGH DOSE AGE 65+ Roselia Podlogar TELEVISION PRODUCTION CLERK.MANAGER CREATIVE Work Phone: Start: 04-06-2022 PFI[employer]ER[employer] COVID-19 BIVALENT BOOSTER VACCINE, AGE 12+ YR Roselia Podlogar TELEVISION PRODUCTION CLERK.MANAGER CREATIVE Work Phone: Start: 04-06-2022 Adult depression screening assessment Roselia Podlogar TELEVISION PRODUCTION CLERK.MANAGER CREATIVE Work Phone: Start: 03-07-2022 PROTHROMBIN TIME/PT Abdulaziz Caldera MD Work Phone: Start: 03-07-2022 Adult depression screening assessment Abdulaziz Caldera MD Work Phone: Start: 03-02-2022 CT of head without contrast Dr. Camron Caldera Work Phone: Start: 03-02-2022 Plain chest X-ray Dr. Luis Caldera Work Phone: Start: 01-09-2022 Echo tthrc r-t 2d w/wom-mode compl spec&colr d Justina E Leonie TELEVISION PRODUCTION CLERK.MANAGER CREATIVE Work Phone: Start: 01-01-2022 Urnls dip stick/tablet [...] Activity Detail Author Start: 10-11-2031 Colonoscopy COLONOSCOPY [facility] Start: 10-11-2031 COLORECTAL CANCER SCREENING COLORECTAL CANCER SCREENING [facility] Start: 02-27-2025 [facility] Start: 02-27-2025 End: 02-27-2025 [facility] Start: 02-27-2025 Blood culture [facility] Start: 02-11-2025 [facility] Start: 02-11-2025 Patient discharge [facility] Start: 02-11-2025 Application, wound VAC [facility] Start: 02-11-2025 [facility] Start: 02-10-2025 Elevation of head of bed [facility] Start: 02-10-2025 End: 02-10-2025 [facility] Start: 02-10-2025 Cardiac monitoring [facility] Start: 02-10-2025 Dietary regime [facility] Start: 02-10-2025 Log roll [facility] Start: 02-10-2025 Notification of physician [facility] Start: 02-10-2025 Provision of activit y privileges [facility] Start: 02-10-2025 Pulse taking [facility] Start: 02-09-2025 Catheterization of vein [facility] Start: 02-09-2025 Notification of physician [facility] Start: 02-09-2025 Preoperative care [facility] Start: 02-09-2025 End: 02-09-2025 [facility] Start: 02-08-2025 Consultation [facility] Start: 02-07-2025 [facility] Start: 02-05-2025 [facility] Start: 02-05-2025 Acid fast bacilli culture [facility] Start: 02-05-2025 Acid fast bacilli culture [facility] Start: 02-05-2025 Mycology culture [facility] Start: 02-04-2025 Removal of urinary catheter [facility] Start: 02-04-2025 [facility] Start: 02-03-2025 End: 02-03-2025 [facility] Start: 02-03-2025 Referral to vascular surgeon [facility] Start: 02-03-2025 Following clinical p athway protocol [facility] Start: 02-03-2025 Assessment of risk o f venous thromboembolism [facility] Start: 02-03-2025 Care regimes management [facility] Start: 02-03-2025 Consultation for treatment [facility] Start: 02-03-2025 Elevation of affecte d extremity [facility] Start: 02-03-2025 Fall prevention [facility] Start: 02-03-2025 Inhalation therapy procedure [facility] Start: 02-03-2025 Insertion of cathete r into peripheral vein [facility] Start: 02-03-2025 Introduction of urin barrington catheter [facility] Start: 02-03-2025 Measuring intake and output [facility] Start: 02-03-2025 Methicillin resistan t Staphylococcus aureus screening test [facility] Start: 02-03-2025 Notification of physician [facility] Start: 02-03-2025 Oxygen therapy [facility] Start: 02-03-2025 Providing care accor ding to standard [facility] Start: 02-03-2025 Provision of activit y privileges [facility] Start: 02-03-2025 Referral to occupati onal therapist [facility] Start: 02-03-2025 Referral to supervisor [employer] [facility] Start: 02-03-2025 Referral to service [facility] Start: 02-03-2025 Speech therapy assessment [facility] Start: 02-03-2025 Wound care [facility] Start: 02-03-2025 End: 02-03-2025 [facility] Start: 02-03-2025 Patient referral to dietitian [facility] Start: 02-02-2025 Hospital admission, emergency, from emergency room, medical nature [facility] Start: 02-02-2025 Respiratory pathogen s DNA and RNA panel - Respiratory specimen by ANGELY with probe detection [facility] Start: 02-02-2025 Verification routine [facility] Start: 02-02-2025 Admission procedure [facility] Start: 02-02-2025 [facility] Start: 02-02-2025 End: 02-02-2025 [facility] Start: 02-02-2025 Bacteria identified in Blood by Culture Blood Culture [facility] Start: 02-02-2025 Bacteria identified in Urine by Culture Urine Culture [facility] Start: 10-10-2024 Colonoscopy COLONOSCOPY [facility] Start: 10-10-2024 COLORECTAL CANCER SCREENING COLORECTAL CANCER SCREENING [facility] Start: 01-05-2024 ANNUAL PCP TEAM TEXTBOOK ASSOCIATE MARLENE DISEASE VISIT ANNUAL PCP TEAM CHRONIC DISEASE VISIT [facility] Start: 01-05-2024 BP CONTROLLED (<130/80) BP CONTROLLE D (<130/80) [facility] Start: 12-04-2023 BP CONTROLLED (<130/80) BP CONTROLLE D (<130/80) [facility] Start: 11-20-2023 ANNUAL PCP TEAM TEXTBOOK ASSOCIATE MARLENE DISEASE VISIT ANNUAL PCP TEAM CHRONIC DISEASE VISIT [facility] Start: 11-20-2023 BP CONTROLLED (<130/80) BP CONTROLLE D (<130/80) [facility] Start: 09-07-2023 BP CONTROLLED (<130/80) BP CONTROLLE D (<130/80) [facility] Start: 08-13-2023 HEMOGLOBIN/HEMATOCRIT HEMOGLOBIN/HEM ATOCRIT [facility] Start: 08-13-2023 SERUM CREATININE SERUM CREATININE Cl [facility] Start: 08-09-2023 ANNUAL PCP TEAM TEXTBOOK ASSOCIATE MARLENE DISEASE VISIT ANNUAL PCP TEAM CHRONIC DISEASE VISIT [facility] Start: 08-09-2023 BP CONTROLLED (<130/80) BP CONTROLLE D (<130/80) [facility] Start: 07-12-2023 ANNUAL PCP TEAM TEXTBOOK ASSOCIATE MARLENE DISEASE VISIT ANNUAL PCP TEAM CHRONIC DISEASE VISIT [facility] Start: 07-12-2023 BP CONTROLLED (<130/80) BP CONTROLLE D (<130/80) [facility] Start: 06-03-2023 Anes dx/ther nerve block/injection prone pos ANESTH N BLOCK/INJ PRONE [facility] Start: 06-03-2023 Njx dx/ther sbst int rlmnr lmbr/sac w/img gdn NJX INTERLAMINAR LMBR/SAC [facility] Start: 06-03-2023 Injection using fluoroscopic guidance [facility] Start: 06-03-2023 Patient discharge [facility] Start: 04-17-2023 BP CONTROLLED (<130/80) BP CONTROLLE D (<130/80) [facility] Start: 04-16-2023 ANNUAL PCP TEAM TEXTBOOK ASSOCIATE MARLENE DISEASE VISIT ANNUAL PCP TEAM CHRONIC DISEASE VISIT [facility] Start: 04-06-2023 Adult depression scr eening assessment DEPRESSION SCREENING [facility] Start: 04-06-2023 ANNUAL PCP TEAM TEXTBOOK ASSOCIATE MARLENE DISEASE VISIT ANNUAL PCP TEAM CHRONIC DISEASE VISIT [facility] Start: 04-06-2023 BP CONTROLLED (<130/80) BP CONTROLLE D (<130/80) [facility] Start: 03-30-2023 3 comp foot exam completed DIABETIC FOOT EXAM [facility] Start: 03-15-2023 Influenza vaccination INFLUENZA (#1) [facility] Start: 03-07-2023 Adult depression scr eening assessment DEPRESSION SCREENING [facility] Start: 03-07-2023 ANNUAL PCP TEAM TEXTBOOK ASSOCIATE MARLENE DISEASE VISIT ANNUAL PCP TEAM CHRONIC DISEASE VISIT [facility] Start: 03-07-2023 BP CONTROLLED (<130/80) BP CONTROLLE D (<130/80) [facility] Start: 03-07-2023 SERUM CREATININE SERUM CREATININE Cl [facility] Start: 03-05-2023 BP CONTROLLED (<130/80) BP CONTROLLE D (<130/80) [facility] Start: 03-02-2023 Hepatitis B screening URINE ALBUMIN:CREATININE RATIO [facility] Start: 02-13-2023 Patient discharge [facility] Start: 02-12-2023 Care regimes management [facility] Start: 02-12-2023 Notification of physician [facility] Start: 02-12-2023 [facility] Start: 02-12-2023 Blood culture [facility] Start: 02-12-2023 End: 02-12-2023 [facility] Start: 02-11-2023 End: 02-11-2023 Blood culture [facility] Start: 02-11-2023 Assessment of risk o f venous thromboembolism [facility] Start: 02-11-2023 Consultation [facility] Start: 02-11-2023 Insertion of cathete r into peripheral vein [facility] Start: 02-11-2023 Providing care accor ding to standard [facility] Start: 02-11-2023 Provision of activit y privileges [facility] Start: 02-11-2023 Referral to occupati onal therapist [facility] Start: 02-11-2023 Referral to service [facility] Start: 02-11-2023 [facility] Start: 02-11-2023 Admission procedure [facility] Start: 02-11-2023 [facility] Start: 02-11-2023 Patient referral to dietitian [facility] Start: 02-10-2023 End: 02-10-2023 [facility] Start: 02-10-2023 End: 02-10-2023 Blood culture [facility] Start: 02-10-2023 Hemoglobin A1c/Hemoglobin.total in Blood HBA1C [facility] Start: 02-05-2023 Patient discharge [facility] Start: 02-04-2023 Assessment of risk o f venous thromboembolism [facility] Start: 02-04-2023 Bedrest [facility] Start: 02-04-2023 Elevation of head of bed [facility] Start: 02-04-2023 Taking patient vital signs [facility] Start: 02-04-2023 Wound care [facility] Start: 02-04-2023 [facility] Start: 02-04-2023 Catheterization of vein [facility] Start: 02-04-2023 Notification of physician [facility] Start: 02-04-2023 [facility] Start: 02-01-2023 Catheterization of vein [facility] Start: 02-01-2023 Notification of physician [facility] Start: 02-01-2023 [facility] Start: 02-01-2023 [facility] Start: 01-30-2023 Referral to dietary services manager [facility] Start: 01-30-2023 End: 01-30-2023 Administration of blood product [facility] Start: 01-29-2023 Speech therapy assessment [facility] Start: 01-29-2023 [facility] Start: 01-28-2023 End: 01-29-2023 [facility] Start: 01-27-2023 Application of intermittent pneumatic compression device [facility] Start: 01-27-2023 Following clinical p athway protocol [facility] Start: 01-27-2023 Methicillin resistan t Staphylococcus aureus screening test [facility] Start: 01-27-2023 Aspiration precautions [facility] Start: 01-27-2023 Assessment of risk o f venous thromboembolism [facility] Start: 01-27-2023 Care regimes management [facility] Start: 01-27-2023 Fall prevention [facility] Start: 01-27-2023 Insertion of cathete r into peripheral vein [facility] Start: 01-27-2023 Introduction of urin barrington catheter [facility] Start: 01-27-2023 Measuring intake and output [facility] Start: 01-27-2023 Providing care accor ding to standard [facility] Start: 01-27-2023 Provision of activit y privileges [facility] Start: 01-27-2023 Referral to gastroenterology service [facility] Start: 01-27-2023 Referral to occupati onal therapist [facility] Start: 01-27-2023 Referral to service [facility] Start: 01-27-2023 [facility] Start: 01-27-2023 Admission procedure [facility] Start: 01-27-2023 CT Chest and Abdomen and Pelvis WO and W contrast IV [facility] Start: 01-27-2023 CT of thorax, abdome n and pelvis with contrast CTA Chst, Abd, Pel W and/or WO [facility] Start: 01-27-2023 Blood chemistry [facility] Start: 01-27-2023 End: 01-28-2023 [facility] Start: 01-27-2023 Patient referral to dietitian [facility] Start: 01-26-2023 Patient discharge [facility] Start: 01-24-2023 Speech therapy assessment [facility] Start: 01-24-2023 Speech therapy assessment [facility] Start: 01-22-2023 Referral to dietary services manager [facility] Start: 01-21-2023 Administration of bl ood product [facility] Start: 01-21-2023 Catheterization of vein [facility] Start: 01-21-2023 Application of intermittent pneumatic compression device [facility] Start: 01-21-2023 Following clinical p athway protocol [facility] Start: 01-21-2023 Care regimes management [facility] Start: 01-21-2023 Notification of physician [facility] Start: 01-21-2023 Cardiac monitoring [facility] Start: 01-21-2023 Referral to gastroenterology service [facility] Start: 01-21-2023 End: 01-21-2023 [facility] Start: 01-21-2023 Oxygen therapy [facility] Start: 01-21-2023 Ambulation without limitation [facility] Start: 01-21-2023 Documentation procedure [facility] Start: 01-21-2023 Assessment of risk o f venous thromboembolism [facility] Start: 01-21-2023 Continuous pulse oximetry [facility] Start: 01-21-2023 Insertion of cathete r into peripheral vein [facility] Start: 01-21-2023 Measuring intake and output [facility] Start: 01-21-2023 Providing care accor ding to standard [facility] Start: 01-21-2023 Referral to occupati onal therapist [facility] Start: 01-21-2023 Referral to service [facility] Start: 01-21-2023 Verification routine [facility] Start: 01-21-2023 Vital signs measurements [facility] Start: 01-21-2023 Admission procedure [facility] Start: 01-21-2023 Transfusion of red b lood cells [facility] Start: 01-08-2023 Patient discharge [facility] Start: 01-05-2023 BP CONTROLLED (<130/80) BP CONTROLLE D (<130/80) [facility] Start: 01-05-2023 Admission procedure [facility] Start: 01-05-2023 Telepractice consultation [facility] Start: 01-04-2023 Application of intermittent pneumatic compression device [facility] Start: 01-04-2023 Following clinical p athway protocol [facility] Start: 01-04-2023 Aspiration precautions [facility] Start: 01-04-2023 Assessment of risk o f venous thromboembolism [facility] Start: 01-04-2023 Cardiac monitoring [facility] Start: 01-04-2023 Care regimes management [facility] Start: 01-04-2023 Catheterization of vein [facility] Start: 01-04-2023 Elevation of head of bed [facility] Start: 01-04-2023 Exercises [facility] Start: 01-04-2023 Fall prevention [facility] Start: 01-04-2023 Inhalation therapy procedure [facility] Start: 01-04-2023 Insertion of cathete r into peripheral vein [facility] Start: 01-04-2023 Introduction of urin barrington catheter [facility] Start: 01-04-2023 Measuring intake and output [facility] Start: 01-04-2023 Notification of physician [facility] Start: 01-04-2023 Providing care accor ding to [facility] Start: 01-04-2023 Provision of activit y privileges [facility] Start: 01-04-2023 Referral to occupati onal therapist [facility] Start: 01-04-2023 Referral to service [facility] Start: 01-04-2023 Tobacco use cessatio n education [facility] Start: 01-04-2023 Verification routine [facility] Start: 01-04-2023 Admission procedure [facility] Start: 01-04-2023 End: 01-04-2023 [facility] Start: 01-04-2023 End: 01-04-2023 Blood culture [facility] Start: 01-04-2023 Patient referral to dietitian [facility] Start: 01-01-2023 ANNUAL PCP TEAM TEXTBOOK ASSOCIATE MARLENE DISEASE VISIT ANNUAL PCP TEAM CHRONIC DISEASE VISIT [facility] Start: 01-01-2023 BP CONTROLLED (<130/80) BP CONTROLLE D (<130/80) [facility] Start: 01-01-2023 Hepatitis B surface antibody level LDL CHOLESTEROL [facility] Start: 01-01-2023 SERUM CREATININE SERUM CREATININE [facility] Start: 12-14-2022 ANNUAL PCP TEAM TEXTBOOK ASSOCIATE MARLENE DISEASE VISIT ANNUAL PCP TEAM CHRONIC DISEASE VISIT [facility] Start: 12-08-2022 ANNUAL PCP TEAM TEXTBOOK ASSOCIATE MARLENE DISEASE VISIT ANNUAL PCP TEAM CHRONIC DISEASE VISIT [facility] Start: 12-08-2022 BP CONTROLLED (<130/80) BP CONTROLLE D (<130/80) [facility] Start: 09-06-2022 ANNUAL PCP TEAM TEXTBOOK ASSOCIATE MARLENE DISEASE VISIT ANNUAL PCP TEAM CHRONIC DISEASE VISIT [facility] Start: 09-02-2022 Hemoglobin A1c/Hemoglobin.total in Blood HBA1C [facility] Start: 08-30-2022 SERUM CREATININE SERUM CREATININE [facility] Start: 08-09-2022 End: 10-09-2022 CBC W Auto Differential panel - Blood CBC + DIFF Lab Routine Type 2 diabetes mellitus with diabetic neuropathy, with long-term current use of insulin (HCC) Expected: 08/09/2022, Expires: 10/09/2022 [facility] Work Phone: Comment on above: Expected: 08/09/2022 , Expires: 10/09/2022 Start: 08-09-2022 End: 10-09-2022 Comprehensive metabolic 2000 panel - Serum or Plasma COMP METABOLIC PANEL Lab Routine Type 2 diabetes mellitus with diabetic neuropathy, with long-term current use of insulin (HCC) Expected: 08/09/2022, Expires: 10/09/2022 [facility] Work Phone: Comment on above: Expected: 08/09/2022 , Expires: 10/09/2022 Start: 08-09-2022 End: 10-09-2022 Hemoglobin A1c in Blood HGB A1C Lab Routine Type 2 diabetes mellitus with diabetic neuropathy, with long-term current use of insulin (HCC) Expected: 08/09/2022, Expires: 10/09/2022 [facility] Work Phone: Comment on above: Expected: 08/09/2022 , Expires: 10/09/2022 Start: 08-06-2022 COVID-19 VACCINE (6 - Pfizer series) COVID-19 VACCINE (6 - Pfizer series) [facility] Start: 07-15-2022 ADVANCE DIRECTIVE DISCUSSION ADVANCE DIRECTIVE DISCUSSION [facility] Start: 07-15-2022 DEPRESSION ASSESSMENT DEPRESSION ASS ESSMENT [facility] Start: 07-11-2022 Patient discharge [facility] Work Phone: Start: 07-11-2022 Referral to service [facility] Work Phone: Start: 07-10-2022 [facility] Work Phone: Start: 07-10-2022 Following clinical p athway protocol [facility] Work Phone: Start: 07-10-2022 Assessment of risk o f venous thromboembolism [facility] Work Phone: Start: 07-10-2022 Cardiac monitoring [facility] Work Phone: Start: 07-10-2022 Care regimes management [facility] Work Phone: Start: 07-10-2022 Catheterization of vein [facility] Work Phone: Start: 07-10-2022 Continuous pulse oximetry [facility] Work Phone: Start: 07-10-2022 Elevation of head of bed [facility] Work Phone: Start: 07-10-2022 Exercises [facility] Work Phone: Start: 07-10-2022 Fall prevention [facility] Work Phone: Start: 07-10-[address] anned interventions [facility] Work Phone: Start: 07-10-2022 Incentive spirometry [facility] Work Phone: Start: 07-10-2022 Insertion of cathete r into peripheral vein [facility] Work Phone: Start: 07-10-2022 Introduction of urin barrington catheter [facility] Work Phone: Start: 07-10-2022 Measuring intake and output [facility] Work Phone: Start: 07-10-2022 Notification of physician [facility] Work Phone: Start: 07-10-2022 Oxygen therapy [facility] Work Phone: Start: 07-10-2022 Providing care accor ding to standard [facility] Work Phone: Start: 07-10-2022 Provision of activit y privileges [facility] Work Phone: Start: 07-10-2022 Referral to dietary services manager [facility] Work Phone: Start: 07-10-2022 Referral to occupati onal therapist [facility] Work Phone: Start: 07-10-2022 Referral to service [facility] Work Phone: Start: 07-10-2022 Tobacco use cessatio n education [facility] Work Phone: Start: 07-10-2022 [facility] Work Phone: Start: 07-10-2022 Patient referral to dietitian [facility] Work Phone: Start: 07-09-2022 Admission procedure [facility] Work Phone: Start: 03-15-2022 HEMOGLOBIN/HEMATOCRIT HEMOGLOBIN/HEM ATOCRIT [facility] Start: 03-15-2022 Influenza vaccination INFLUENZA (#1) [facility] Start: 03-07-2022 End: 05-07-2022 Comprehensive metabolic 2000 panel - Serum or Plasma [facility] Work Phone: Comment on above: Expected: 03/07/2022 , Expires: 05/07/2022 Start: 03-02-2022 [facility] Work Phone: Start: 02-27-2022 Hemoglobin A1c/Hemoglobin.total in Blood HBA1C [facility] Start: 02-20-2022 Hepatitis C antibody , confirmatory test DILATED RETINAL EXAM [facility] Start: 01-30-2022 End: 04-01-2022 ALBUMIN/CREAT RATIO RND UR ALBUMIN/CREAT RATIO RND UR Lab Routine Type 2 diabetes mellitus with stage 3 chronic kidney disease, with long-term current use of insulin (HCC) Expected: 01/30/2022, Expires: 04/01/2022 [facility] Work Phone: Comment on above: Expected: 01/30/2022 , Expires: 04/01/2022 Start: 01-30-2022 End: 04-01-2022 Hemoglobin A1c in Blood HGB A1C Lab Routine Type 2 diabetes mellitus with stage 3 chronic kidney disease, with long-term current use of insulin (HCC) Expected: 01/30/2022, Expires: 04/01/2022 [facility] Work Phone: Comment on above: Expected: 01/30/2022 , Expires: 04/01/2022 Start: 01-30-2022 End: 04-01-2022 SCHEDULE LAB TESTING SCHEDULE LAB TESTING Lab Routine Expected: 01/30/2022, Expires: 04/01/2022 [facility] Work Phone: Comment on above: Expected: 01/30/2022 , Expires: 04/01/2022 Start: 01-05-2022 End: 03-07-2022 Magnesium [Mass/volume] in Serum or Plasma MAGNESIUM BLD Lab Routine Altered mental status, unspecified altered mental status type Expected: 01/05/2022, Expires: 03/07/2022 [facility] Work Phone: Comment on above: Expected: 01/05/2022 , Expires: 03/07/2022 Start: 01-05-2022 End: 03-07-2022 Methylmalonate [Moles/volume] in Serum or Plasma METHYLMALONIC ACID Lab Routine Altered mental status, unspecified altered mental status type Expected: 01/05/2022, Expires: 03/07/2022 [facility] Work Phone: Comment on above: Expected: 01/05/2022 , Expires: 03/07/2022 Start: 01-01-2022 End: 03-03-2022 25-hydroxyvitamin D3 [Mass/volume] in Serum or Plasma [facility] Work Phone: Comment on above: Expected: 01/01/2022 , Expires: 03/03/2022 Start: 01-01-2022 End: 03-03-2022 Lipid 1996 panel - Serum or Plasma [facility] Work Phone: Comment on above: Expected: 01/01/2022 , Expires: 03/03/2022 Start: 12-30-2021 Blood chemistry [facility] Work Phone: Start: 12-29-2021 Patient discharge [facility] [place] Work Phone: Start: 12-28-2021 Admission procedure [facility] Work Phone: Start: 12-27-2021 End: 12-28-2021 [facility] Work Phone: Start: 12-27-2021 Oxygen therapy [facility] Work Phone: Start: 12-27-2021 Incentive spirometry [facility] Work Phone: Start: 12-27-2021 Admission procedure [facility] Work Phone: Start: 12-27-2021 Assessment of risk o f venous thromboembolism [facility] Work Phone: Start: 12-27-2021 Following clinical p athway protocol [facility] Work Phone: Start: 12-27-2021 Insertion of cathete r into peripheral vein [facility] Work Phone: Start: 12-27-2021 Measuring intake and output [facility] Work Phone: Start: 12-27-2021 Providing care accor ding to standard [facility] Work Phone: Start: 12-27-2021 End: 12-27-2021 Referral to service [facility] Work Phone: Start: 12-06-2021 Bacteria identified in Blood by Culture Blood Culture [facility] Work Phone: Start: 11-23-2021 3 comp foot exam completed DIABETIC FOOT EXAM [facility] Start: 11-16-2021 Hepatitis B screening URINE ALBUMIN:CREATININE RATIO [facility] Start: 11-16-2021 Hepatitis B surface antibody level LDL CHOLESTEROL [facility] Start: 10-28-2021 Adult depression scr eening assessment DEPRESSION SCREENING [facility] Start: 09-15-2021 COVID-19 VACCINE (4 - Booster for Pfizer series) COVID-19 VACCINE (4 - Booster for Pfizer series) [facility] Start: 07-15-2021 ADVANCE DIRECTIVE DISCUSSION ADVANCE DIRECTIVE DISCUSSION [facility] Start: 07-15-2021 DEPRESSION ASSESSMENT DEPRESSION ASS ESSMENT [facility] Start: 03-12-2021 Colonoscopy COLONOSCOPY [facility] Start: 03-12-2021 COLORECTAL CANCER SCREENING COLORECTAL CANCER SCREENING [facility] Start: 12-25-2020 Urine microalbumin profile DTA P,TDAP,TD (3 - Td or Tdap) [facility] Start: 10-12-1992 COLOGUARD (FIT-DNA) COLOGUARD (FIT-D NA) [facility] Start: 10-12-[address] [facility] Start: 10-12-1992 FECAL OCCULT BLOOD FECAL OCCULT BLOO D [facility] Start: 10-12-1992 SIGMOIDOSCOPY [facility] Start: [birth year]-1965 BP CONTROLLED (<130/80) BP CONTROLLE D (<130/80) [facility] Acid fast bacilli culture [facility] Alanine aminotransfe rase [Enzymatic activity/volume] in Serum or Plasma [facility] Aspartate aminotrans ferase [Enzymatic activity/volume] in Serum or Plasma [facility] Bacteria identified in Blood by Culture Blood Culture [facility] Bacteria identified in Urine by Culture Urine Culture [facility] Creatine kinase [Enz ymatic activity/volume] in Serum or Plasma [facility] End: 01-05-2023 EPIL EEG ROUTINE EPIL EEG ROUTINE NEUROLOGY Routine Altered mental status, unspecified altered mental status type 1 Occurrences starting 01/05/2022 until 01/05/2023 [facility] Work Phone: Comment on above: 1 Occurrences starti ng 01/05/2022 until 01/05/2023 Fungus identified in Unspecified specimen by Culture [facility] Fungus identified in Unspecified specimen by Fungus stain [facility] Lipid 1996 panel - S chavez or Plasma [facility] Magnesium [Mass/volu me] in Serum or Plasma [facility] Magnesium [Mass/volu me] in Serum or Plasma [facility] Mycobacterium sp identified in Unspecified specimen by Organism specific culture [facility] Mycobacterium sp identified in Unspecified specimen by Organism specific culture [facility] Patient Education [facility] Work Phone: Patient referral [facility] Work Phone: PT PLAN OF CARE CERTIFICATION PT PLAN OF CARE CERTIFICATION Procedures Routine Abnormality of gait due to impairment of balance Ordered: 01/12/2022 [facility] Comment on above: Ordered: 01/12/2022 PT PLAN OF CARE CERTIFICATION PT PLAN OF CARE CERTIFICATION Procedures Routine Abnormality of gait due to impairment of balance Ordered: 03/09/2022 [facility] Comment on above: Ordered: 03/09/2022 SURGICAL PATHOLOGY [facility] Work Phone: Comment on above: Release Upon Orderin g for 1 Occurrences starting 10/10/2021, 1 completed Urine culture [facility] Urine culture [facility] Immunizations Immunization Date Immunization Notes Care Provider Fa ingrid 04-06-2022 COVID-19 booster vaccine, age 12+ yr, bivalent (PFIZER-BIONTECH) Roselia Podlogar TELEVISION PRODUCTION CLERK.MANAGER CREATIVE Work Phone: [facility] 04-06-2022 Influenza, high dose seasonal Dr. Luis Caldera MD Work Phone: [facility] 04-06-2022 influenza, high dose seasonal, preservative-free Dr. Maggy Roberts Work Phone: [facility] 04-06-2022 influenza, high-dose , quadrivalent vaccine (FLUZONE HIGH DOSE QUADRIVALENT) Roselia Podlogar TELEVISION PRODUCTION CLERK.MANAGER CREATIVE Work Phone: [facility] 03-28-2022 influenza, injectabl e, quadrivalent, preservative free Dr. Maggy Roberts Work Phone: [facility] 03-28-2022 influenza, seasonal, injectable Dr. Maggy Roberts Work Phone: [facility] 06-14-2021 Influenza, high dose seasonal Dr. Luis Caldera MD Work Phone: [facility] 06-14-2021 influenza, high dose seasonal, preservative-free Dr. Maggy Roberts Work Phone: [facility] 06-14-2021 influenza, high-dose , quadrivalent vaccine (FLUZONE HIGH DOSE QUADRIVALENT) Abdulaziz Caldera MD Work Phone: [facility] Work Phone: 05-18-2021 Covid (Pfizer) Dr. Maggy Roberts Work Phone: [facility] 02-24-2021 zoster vaccine recombinant Abdulaziz Caldera MD Work Phone: [facility] 12-13-2020 Covid (Pfizer) Dr. Ramón Caldera Work Phone: [facility] 09-30-2020 COVID-19 vaccine, ag e 12+ yr (PFIZER-BIONTECH - PURPLE TOP) Abdulaziz Caldera MD Work Phone: [facility] 09-09-2020 COVID-19 vaccine, ag e 12+ yr (PFIZER-BIONTECH - PURPLE TOP) Abdulaziz Caldera MD Work Phone: [facility] 04-16-2020 Influenza, high dose seasonal Dr. Luis Caldera MD Work Phone: [facility] 04-16-2020 influenza, high dose seasonal, preservative-free Dr. Maggy Roberts Work Phone: [facility] 04-16-2020 influenza, high-dose , quadrivalent vaccine (FLUZONE HIGH DOSE QUADRIVALENT) Abdulaziz Caldera MD Work Phone: [facility] 03-14-2020 zoster vaccine recombinant Abdulaziz Caldera MD Work Phone: [facility] Work Phone: 04-02-2019 Influenza, high dose seasonal Dr. Luis Caldera MD Work Phone: [facility] 04-02-2019 influenza, high dose sandeep, preservative-free Abdulaziz Caldera MD Work Phone: [facility] Work Phone: 05-08-2018 Influenza virus vaccine [facility] 04-15-2018 Influenza, high dose seasonal Dr. Luis Caldera [facility] [facility] 04-15-2018 influenza, high dose seasonal, preservative-free Abdulaziz Caldera MD Work Phone: [facility] 06-13-2017 Influenza, high dose seasonal Dr. Luis Caldera MD Work Phone: [facility] 06-13-2017 influenza, high dose seasonal, preservative-free Abdulaziz Caldera MD Work Phone: [facility] 06-20-2016 influenza, high dose seasonal, preservative-free Abdulaziz Caldera MD Work Phone: [facility] 11-24-2015 pneumococcal polysaccharide vaccine, 23 valent Abdulaziz Caldera MD Work Phone: [facility] 05-16-2015 Influenza, high dose seasonal Dr. Luis Caldera MD Work Phone: [facility] 05-16-2015 influenza, high dose seasonal, preservative-free Abdulaziz Caldera MD Work Phone: [facility] 10-27-2014 pneumococcal conjuga te vaccine, 13 valent Abdulaziz Caldera MD Work Phone: [facility] 10-27-2014 zoster vaccine, live Socrates Caldera MD Work Phone: [facility] 04-14-2013 Influenza virus vaccine [facility] 06-11-2011 influenza virus vaccine, unspecified formulation Abdulaziz Caldera MD Work Phone: [facility] 12-25-2010 tetanus toxoid, redu veronika diphtheria toxoid, and acellular pertussis vaccine, adsorbed Abdulaziz Caldera MD Work Phone: [facility] 04-25-2009 pneumococcal polysaccharide vaccine, 23 valrosette Caldera MD Work Phone: [facility] 03-21-2000 diphtheria and tetan us toxoids, adsorbed for pediatric use Abdulaziz Caldera MD Work Phone: [facility] Work Phone: 02-11-1961 poliovirus vaccine, inactivated Abdulaziz Caldera MD Work Phone: [facility] Work Phone: 03-25-1959 poliovirus vaccine, inactivated Abdulaziz Caldera MD Work Phone: [facility] Work Phone: 10-16-1956 poliovirus vaccine, inactivated Abdulaziz Caldera MD Work Phone: [facility] Work Phone: 01-12-1956 poliovirus vaccine, inactivated Abdulaziz Caldera MD Work Phone: [facility] Work Phone: 12-03-1955 poliovirus vaccine, inactivated Abdulaziz Caldera MD Work Phone: [facility] Work Phone: Payers Date Payer Category Payer Self-pay [id number] 2021 Medicare [id number] 2021 Unknown [id number] 2012 Unknown HOSPITAL/MEDICAL GENERIC MEDICAL GENERIC [id number] 2012-Present [phone] [place] [address], [place] [address] Indemnity [id number] 2012 Unknown HOSPITAL/MEDICAL GENERIC MEDICAL GENERIC [id number] 2012-Present [phone] [address] [place] [address], [place] [address] Indemnity [id number] [id number] 2012 Medicare MEDICARE MEDICAR E A AND B [id number] 2012-Present [phone] [place] [address] Medicare [id number] .[id number] 2012 Medicare MEDICARE MEDICAR E A AND B [id number] 2012-Present [phone] [place] [address] Medicare [id number] .[id number] 1945 Unknown [id number] 2.16.840.1.323550.3.579.2.627 Unknown [id number] 2.16.840.1.408675.3.579.2.462 Unknown [id number] 2.16.840.1.567272.3.579.2.462 Unknown [id number] 2.16.840.1.170964.3.579.2.462 Unknown [id number] 2.16.840.1.303632.3.579.2.462 Unknown [id number] 2..840.1.962208.3.579.2.462 Unknown [id number] 2.16.840.1.624663.3.579.2.462 Unknown [id number] 2.840.1.584744.3.579.2.462 Unknown [id number] 2.840.1.557765.3.579.2.462 Unknown [id number] 2.840.1.320079.3.579.2.462 Unknown [id number] 2..840.1.084539.3.579.2.462 Unknown [id number] 2.840.1.883796.3.579.2.462 Unknown [id number] 2.840.1.831081.3.579.2.462 Unknown [id number] 2.840.1.787301.3.579.2.462 Unknown [id number] 2..840.1.737482.3.579.2.462 Unknown [id number] 2.16.840.1.941357.3.579.2.462 Unknown [id number] 2.840.1.837905.3.579.2.462 Unknown [id number] 2.16.840.1.474537.3.579.2.462 Unknown [id number] 2.16.840.1.817889.3.579.2.462 Unknown [id number] 2.840.1.528927.3.579.2.462 Unknown [id number] 2.16.840.1.819730.3.579.2.462 Unknown [id number] 2.840.1.783982.3.579.2.462 Unknown [id number] 2.840.1.339512.3.579.2.462 Unknown [id number] 2.840.1.816716.3.579.2.462 Unknown [id number] 2.840.1.462733.3.579.2.462 Unknown [id number] 2.840.1.469397.3.579.2.462 Unknown [id number] 2.840.1.404620.3.579.2.462 Unknown [id number] 2.840.1.626892.3.579.2.462 Unknown [id number] 2.840.1.284635.3.579.2.462 Unknown [id number] 2.840.1.855071.3.579.2.462 Unknown [id number] 2.840.1.389662.3.579.2.462 Unknown [id number] .840.1.877833.3.579.2.462 Unknown [id number] 2.840.1.721209.3.579.2.462 Unknown [id number] 2.840.1.630486.3.579.2.462 Unknown [id number] 2.840.1.207429.3.579.2.462 Unknown [id number] 2.840.1.971201.3.579.2.462 Unknown [id number] 2.840.1.073599.3.579.2.462 Unknown [id number] 2.16.840.1.026799.3.579.2.462 Unknown [id number] 2.16.840.1.204777.3.579.2.462 Unknown [id number] 2.16.840.1.954402.3.579.2.462 Unknown [id number] 2.16.840.1.917789.3.579.2.462 Unknown [id number] 2.16.840.1.787531.3.579.2.462 Unknown [id number] 2.16.840.1.996966.3.579.2.462 Unknown [id number] 2.16.840.1.945906.3.579.2.462 Unknown [id number] 2.16.840.1.596107.3.579.2.462 Unknown [id number] 2.16.840.1.533512.3.579.2.462 Unknown [id number] 2.16.840.1.331229.3.579.2.462 Social History Date Type Detail Facility Start: 11-23-2020 End: 02-27-2025 Tobacco smoking status NHIS Never smoked tobacco [facility] Start: 09-06-2021 End: 12-03-2022 Alcohol intake Current non-drinker of alcohol (finding) [facility] Start: 1945 Sex Assigned At Not on file [facility] Start: 08-07-2021 End: 04-17-2022 Exposure to SARS-CoV-2 (event) Not sure [facility] Start: 12-06-2021 End: 05-30-2023 Tobacco smoking status NHIS Unknown if ever smoked [facility] Start: 01-10-2019 Spouse/ Signif icant Other [facility] Start: 1945 Sex Assigned At Male [facility] Work Phone: Tobacco smoking status No Smokin g Status Entered [facility] Start: 01-02-2022 End: 01-12-2022 Exposure to SARS-CoV-2 (event) Unable to assess [facility] Work Phone: Start: 11-23-2020 End: 04-06-2022 Tobacco use and exposure Smokeless tobacco non-user [facility] Work Phone: Start: 09-16-2013 Rare [facility] Start: 09-16-2013 None [facility] Start: 09-16-2013 Non-smoker [facility] Start: 11-19-2022 End: 12-03-2022 History of Social function [facility] Work Phone: Start: 11-19-2022 End: 12-03-2022 Tobacco use panel [facility] Work Phone: Adult Depression Screening Assessment 2 [facility] Work Phone: Start: 10-15-2024 End: 10-22-2024 Sex Male (finding) [facility] Medical Equipment Procedure Code Equipment Code Equipment [...] ABS FDA Start: 03-28-2018 FDA Start: 03-28-2018 [id number]) ()[id number] FDA Start: 02-04-2023 ([id number]) ()[id number] FDA Start: 02-04-2023 ([id number]) [id number] FDA Start: 02-04-2023 FDA Start: 03-28-2018 [...] Assessment Result Facility 02-11-2025 Functional status Bedrest [facility] Work Phone: 02-13-2023 Functional status Bedrest [facility] Work Phone: 02-05-2023 Functional status Chair [facility] Work Phone: 02-04-2023 Functional status Bedrest [facility] Work Phone: 01-26-2023 Functional status Chair mode [facility] Work Phone: 01-26-2023 Functional status With Assist of 2;Bedres t [facility] Work Phone: 01-25-2023 Functional status None [facility] Work Phone: 01-08-2023 Functional status Chair [facility] Work Phone: 07-11-2022 Functional status Ambulates [facility] Work Phone: 12-29-2021 Functional status Chair [facility] Work Phone: Mental Status Date Assessment Result Facility 02-27-2025 Cognitive function Voice/Name [facility] Work Phone: 02-11-2025 Cognitive function Voice/Name;To uch/Shaking;Light Pain;Deep Pain [facility] Work Phone: 02-02-2025 Cognitive function Level Of Cons ciousness Lethargic [facility] Work Phone: 02-02-2025 Cognitive function Voice/Name;Touch/Shaki ng [facility] Work Phone: 06-03-2023 Cognitive function Voice/Name [facility] Work Phone: 02-13-2023 Cognitive function Voice/Name [facility] Work Phone: 02-11-2023 Cognitive function Awake;Drowsy [facility] Work Phone: 02-10-2023 Cognitive function Awake;Appropr iate;Follows Commands;Drowsy [facility] Work Phone: 02-05-2023 Cognitive function Voice/Name [facility] Work Phone: 02-04-2023 Cognitive function [facility]: 01-26-2023 Cognitive function Voice/Name [facility] Work Phone: 01-21-2023 Cognitive function Level Of Cons ciousness Drowsy;Lethargic [facility] Work Phone: 01-08-2023 Cognitive function Voice/Name [facility] Work Phone: 01-04-2023 Cognitive function Voice/Name [facility] Work Phone: 07-11-2022 Cognitive function Voice/Name [facility] Work Phone: 07-10-2022 Cognitive function Appropriate;[facility] Work Phone: 03-02-2022 Cognitive function Voice/Name [facility] Work Phone: 12-29-2021 Cognitive function Voice/Name [facility] Work Phone: 12-06-2021 Cognitive function Level Of Cons ciousness Awake;Alert;Appropriate [facility] Work Phone: Clinical Notes 10-25-2014 to 03-22-2025 Note Date & Type Note Facility 03-22-2025 Procedure note [facility] 02-27-2025 Discharge summary Note Date/Time February 27, 2025 9:28pm [facility] Medical Records Department [address] [place] [address] Emergency Department Summary 02/27/25 MR#: [id number] Acct: [id number] Name: RICHARD ROY Rep #:[id number] : 1945 79 From: Bennett Troncoso DO PCP: Kuldip Cosby TECHNOLOGY DIRECTOR-C Status:REG ER Location: ED HPI History of [...] send him here for further evaluation management [facility] Medical History MRSA (methicillin resistant staph [...] bisacodyl 10 mg rectal suppository 10 mg AK DAILY PRN constipation 05/30/23 Unknown History acetaminophen [...] thoracic aortic aneurysm repair Social History housing: [facility] current occupational status: retired Smoking Status: Never [...] 71.2 H Lymph % (Auto) 14.2 L [place] % (Auto) 6.1 Eos % (Auto) 7.1 [...] Clarity Clear Urine pH 6.0 Ur Specific [place] 1.010 Urine Protein 15 H Urine Glucose [...] scan would have superior sensitivity. Reading Location: [facility] Brain CT 02/27/25 20:00 IMPRESSION: No acute abnormality. Maxillary sinus mucosal thickening Reading Location: [facility] Chest X-Ray 02/27/25 20:20 IMPRESSION: No evidence of acute cardiopulmonary disease. Reading Location: [facility] Discharge Plan Triage Chief Complaint: Alt LOC [...] PRN (Reason: Insomnia) Patient Comments: PRN PER LONG TERM MAR. memantine 10 mg Tablet 10 mg PO BID Qty: 0 0RF acetaminophen 325 mg tablet 650 mg PO .q12hrs Patient Comments: PRN PER LONG TERM MAR bisacodyl 10 mg suppository 10 mg AK DAILY PRN (Reason: constipation) cholecalciferol (vitamin D3) [...] worsening symptoms or any concerns. Print Language: Greek Disposition Disposition: Home, Self Care What to do if you have Problems For any increased pain, shortness of breath, bleeding, nausea or vomiting, chestpain, or any unexpected problems, contact your Primary Care Provider. Call [facility] ([phone]) or report to the closest Emergency Room. Call 911 if necessary. 02/27/252127 <Electronically signed by Bennett Troncoso DO> Cosigner Signature (if applicable): CC: Kuldip Cosby ~ Signed [facility] Work Phone: 1(914) 107-715308-16-2025 Radiology Diagnostic study [facility]08-16-2025 Radiology Diagnostic study [facility]08-16-2025 Radiology Diagnostic study [facility] 02-11-2025 Progress note Author Meghana Cole [facility] Note Date/Time February 11, 2025 3:45 pm [facility] Medical Records Department [address] [place] [address] Progress Note - Surgery 02/11/25 0839 MR#: [id number] Acct: [id number] Name: RICHARD ROY Rep #:[id number] : 1945 79 From: Meghana LOZA PCP: Kuldip Cosby TECHNOLOGY DIRECTORLisaC Status:ADM IN Location: [facility] [id number] Subjective Subjective He is drowsy. He [...] H 02/11/25 06:54: Estim Creat Clear Calc TECHNOLOGY DIRECTOR Micro: Microbiology 02/05/25 Unknown Tissue - Toe [...] from discharge. Charges/Coding Visit Charges Inpatient E&M: 13202 Subs Hosp L1 02/11/25 0845 <Electronically signed by Meghana LOZA> Cosigner Signature (if applicable): 02/11/25 1548 <Electronically signed by Aneesh Ac MD> CC: ~ Signed [facility] Work Phone: 1(109) 988-758807-31-2025 Progress note Author Kee Mejia [facility] Note Date/Time February 11, 2025 3:15 pm [facility] Medical Records Department [address] [place] [address] Progress Note 02/11/25 1339 MR#: [id number] Acct: [id number] Name: RICHARD ROY Rep #:[id number] : 1945 79 From: Kee Mejia DPM PCP: Kuldip Cosby TECHNOLOGY DIRECTOR-C Status:ADM IN Location: [place] [id number] Subjective Subjective Patient was seen today [...] 76.3 H, Lymph % (Auto) 9.9 L, [place] % (Auto) 7.1, Eos % (Auto) 4.1, [...] Cosigner Signature (if applicable): CC: ~ Signed [facility] Work Phone: 1(903) 397-377007-31-2025 Discharge summary Author Hugo Cervantes [facility] Note Date/Time February 11, 2025 2:52 pm [facility] Medical Records Department [address] [place] [address] Discharge Summary 02/11/25 1444 MR#: [id number] Acct: [id number] Name: RICHARD ROY Rep #:[id number] : 1945 79 From: Hugo hollis MD PCP: Kuldip Cosby Status:ADM IN Location: [facility] [id number] Providers Date of Admission: 02/02/25 Primary Care Physician: AAYUSH Ross Consultations 02/03/25 01:20 Consult: Onc/Wound/field representative/health education Routine Comment: Consult: Podiatry Routine Consulting Provider: [...] bisacodyl 10 mg rectal suppository 10 mg AK DAILY PRN constipation 05/30/23 loperamide 2 mg [...] behavioral disturbance history who presents to the [facility] ED on 02/02/2025 with history of recent [...] to have [facility] at the [facility]. His hospitalization was complicated by an ANTHONY [...] risk benefits of going home to the [facility] and would like to go when able. [...] % (Auto) Cancelled, Lymph % (Auto) Cancelled, [place] % (Auto) Cancelled, Eos % (Auto) Cancelled, [...] Drop Cells Cancelled, Ovalocytes Cancelled, Stomatocytes Cancelled, [place] Bodies Cancelled, [place] Cells Cancelled, Bite Cells Cancelled, Crenated Cell [...] 76.3 H, Lymph % (Auto) 9.9 L, [place] % (Auto) 7.1, Eos % (Auto) 4.1, [...] Patient Comments: PRN PER LONG TERM MAR. memantine 10 mg Tablet 10 mg PO BID Qty: 0 0RF acetaminophen 325 mg tablet 650 mg PO .q12hrs Patient Comments: PRN PER LONG TERM MAR bisacodyl 10 mg suppository 10 mg AK DAILY PRN (Reason: constipation) loperamide [Anti-Diarrheal (loperamide)] [...] in before D/C Order can be placed): [facility] Facility Charges/Coding Visit Charges Inpatient E&M: 65089 Disch Hosp >30min 02/11/25 1452 <Electronically signed by Hugo Cervantes MD> Cosigner Signature (if applicable): CC: Dr. Hugo Cervantes MD; Kuldip Cosby~ Signed [facility] Work Phone: 1(597) 450-194507-31-2025 Discharge summary Author Hugo Cervantes [facility] Note Date/Time February 11, 2025 2:23 pm [facility] Medical Records Department [address] [facility] [place] [address] Transfer to [facility] MR#: [id number] Acct: [id number] Name: RICHARD ROY Rep #:[id number] : [...] PRIOR TO HIS/HER TRANSFER TO THE F. 02/11/25 1423<Electronically signed by Hugo Cervantes MD> [...] noadded salt; consistency/texture adjustments as indicated per LUGGAGE LINER. Continue Luis with breakfast and dinner to [...] Patient Comments: PRN PER LONG TERM MAR. memantine 10 mg Tablet 10 mg PO BID Qty: 0 0RF acetaminophen 325 mg tablet 650 mg PO .q12hrs Patient Comments: PRN PER LONG TERM MAR bisacodyl 10 mg suppository 10 mg AK DAILY PRN (Reason: constipation) loperamide [Anti-Diarrheal (loperamide)] [...] in before D/C Order can be placed): [facility] Facility 02/11/25 1423 <Electronically signed by Hugo Cervantes MD> Cosigner Signature (if applicable): CC: WINSOME Mejia; Dr. Karen Aly MD; Dr. Aneesh Ac MD; Dr. Smith Leija MD; Kuldip Cosby ~ [facility] Work Phone: 1(974) 173-603907-31-2025 [facility]07-31-2025 Progress note Author [facility] Note Date/Time February 11, 2025 10:2 8am [facility] Medical Records Department [address] [place] [address] Progress Note - Infect Disease 02/11/25 1027 MR#: [id number] Acct: [id number] Name: RICHARD ROY Rep #:[id number] : 1945 79 From: Smith mcdowell MD PCP: Kuldip Cosby TECHNOLOGY DIRECTOR-C Status:ADM IN Location: [address] Physical Exam Narrative Angioplasty yesterday, feeling ok, [...] Cosigner Signature (if applicable): CC: ~ Signed [facility] Work Phone: 1(185) 623-959407-31-2025 Progress note Author Hugo Cervantes [facility] Note Date/Time February 11, 2025 9:30 am [facility] Medical Records Department [address] [place] [address] Progress Note - Hospitalist 02/11/25 0922 MR#: [id number] Acct: [id number] Name: RICHARD ROY Rep #:[id number] : 1945 79 From: Hugo hollis MD PCP: Kuldip Cosby TECHNOLOGY DIRECTORLisaC Status:ADM IN Location: [place] [address] Subjective Subjective No issues overnight, had his [...] 76.3 H, Lymph % (Auto) 9.9 L, [place] % (Auto) 7.1, Eos % (Auto) 4.1, [...] DVT: Eliquis Charges/Coding Visit Charges Inpatient E&M: 35139 Subs Hosp L2 02/11/25 1478 <Electronically signed by Hugo Cervantes MD> Cosigner Signature (if applicable): CC: ~ Signed [facility] Work Phone: 1(893) 308-184107-30-2025 Procedure [facility] 02-10-2025 Consult note Author Crys Carvajal [facility] Note Date/Time February 10, 2025 12:0 4pm [facility] Medical Records Department [address] [place] [address] Pharmacokinetic/Renal -Consult 02/10/25 1203 MR#: [id number] Acct: [id number] Name: RICHARD ROY Rep #:[id number] : 1945 79 From: Crys Carvajal PCP: Kuldip Cosby TECHNOLOGY DIRECTORLisaC Status:ADM IN Y Location: [place] [address] Consult Antibiotic Management Pharmacy has been consulted [...] monitor and adjust dosing as required. 02/10/25 0204 <Electronically signed by Crys Carvajal > Date _ Crys Hsuigner Signature (if applicable): Date CC: ~ Signed [facility] Work Phone: 1(126) 698-998007-30-2025 Progress note Author Hugo Cervantes [facility] Note Date/Time February 10, 2025 9:46 am [facility] Medical Records Department [address] [place] [address] Progress Note - Hospitalist 02/10/25 0942 MR#: [id number] Acct: [id number] Name: RICHARD ROY Rep #:[id number] : 1945 79 From: Hugo hollis MD PCP: Kuldip Cosby TECHNOLOGY DIRECTOR-C Status:ADM IN Location: [place] [address] Subjective Subjective No issues overnight, pending angiogram [...] 73.1 H, Lymph % (Auto) 11.0 L, [place] % (Auto) 8.5, Eos % (Auto) 4.7, [...] DVT: Eliquis Charges/Coding Visit Charges Inpatient E&M: 11850 Subs Hosp L2 02/10/25 0946 <Electronically signed by Hugo Cervantes MD> Cosigner Signature (if applicable): CC: ~ Signed [facility] Work Phone: 1(843) 851-929707-29-2025 Progress note Author Aneesh Ac [facility] Note Date/Time February 09, 2025 6:11 pm [facility] Medical Records Department [address] [place] [address] Progress Note - Surgery 02/09/25 1808 MR#: [id number] Acct: [id number] Name: RICHARD ROY Rep #:[id number] : 1945 79 From: Aneesh Ac MD PCP: Kuldip Cosby TECHNOLOGY DIRECTORJay Jay Status:ADM IN Location: [facility] [id number]- [id number] Subjective Subjective Resting comfortably, eating dinner. No [...] 75.5 H, Lymph % (Auto) 10.7 L, [place] % (Auto) 7.1, Eos % (Auto) 4.5, [...] eliquis tonight/AM Charges/Coding Visit Charges Inpatient E&M: 08677 Subs Hosp L2 02/09/25 1151 <Electronically signed by Aneesh Ac MD> Cosigner Signature (if applicable): CC: ~ Signed [facility] Work Phone: 1(473) 707-847907-29-2025 Progress note Author Smith Leija [facility] Note Date/Time February 09, 2025 10:1 7am [facility] Medical Records Department [address] [place] [address] Progress Note - Infect Disease 02/09/25 1016 MR#: [id number] Acct: [id number] Name: RICHARD ROY Rep #:[id number] : 1945 79 From: Smith mcdowell MD PCP: Kuldip Cosby TECHNOLOGY DIRECTOR-C Status:ADM IN Location: [place] [address] Physical Exam Narrative Feeling fine, no pain [...] Cosigner Signature (if applicable): CC: ~ Signed [facility] Work Phone: 1(169) 437-768407-29-2025 Progress note Author Hugo Cervantes [facility] Note Date/Time February 09, 2025 9:14 am [facility] Medical Records Department [address] [place] [address] Progress Note - Hospitalist 02/09/25 0909 MR#: [id number] Acct: [id number] Name: RICHARD ROY Rep #:[id number] : 1945 79 From: Hugo hollis MD PCP: Kuldip Cosby TECHNOLOGY DIRECTOR-C Status:ADM IN Location: [place] [address] Subjective Subjective Doing well, no issues overnight. [...] 75.5 H, Lymph % (Auto) 10.7 L, [place] % (Auto) 7.1, Eos % (Auto) 4.5, [...] DVT: Eliquis Charges/Coding Visit Charges Inpatient E&M: 11241 Subs Hosp L2 02/09/25 0914 <Electronically signed by Hugo Cervantes MD> Cosigner Signature (if applicable): CC: ~ Signed [facility] Work Phone: 1([phone]) 803-562807-29-2025 Consult note Author Renetta Gonsales [facility] Note Date/Time February 09, 2025 7:10 am [facility] Medical Records Department [address] [facility] [place] [address] Pharmacokinetic/Renal -Consult 02/08/251930 MR#: [id number] Acct: [id number] Name: RICHARD ROY Rep #:[id number] : 1945 79 From: Renetta Gonsales PCP: Kuldip Cosby Status:ADM IN Y Location: [place] [address] Consult Antibiotic Management Pharmacy has been consulted [...] by Renetta Gonsales> Date _ Renetta Gonsales 02/09/25709 <Electronically signed by Hugo painter MD> Cosigner Signature (if applicable): Date Hugo Cervantes MD CC: ~ Signed [facility] Work Phone: 1(280) 995-388707-29-2025 Progress note Author Kee Mejia [facility] Note Date/Time February 08, 2025 11:1 9pm [facility] Medical Records Department [address] [place] [address] Progress Note 02/08/251899 MR#: [id number] Acct: [id number] Name: RICHARD ROY Rep #:[id number] : 1945 79 From: Kee Mejia DPM PCP: Kuldip Cosby Status:ADM IN Location: [facility] [id number]- [id number] Subjective Subjective Patient seen today for follow [...] 72.7 H, Lymph % (Auto) 11.5 L, [place] % (Auto) 9.5, Eos % (Auto) 4.6, [...] Discussed with Dr. Cervantes and nursing. 02/08/25 9092 <Electronically signed by Kee Mejia DPM> Kee Mejia DPM Cosigner Signature (if applicable): CC: ~ Signed [facility] Work Phone: 1(751) 549-794007-28-2025 Consult note Author Smith [facility] Note Date/Time February 08, 2025 3:37 pm [facility] Medical Records Department [address] [place] [address] Consultation - Infectious Dx 02/08/25 1532 MR#: [id number] Acct: [id number] Name: RICHARD ROY Rep #:[id number] : 1945 79 From: Smith mcdowell MD PCP: Kuldip Cosby Status:ADM IN Location: [place] [id number]- Assessment & Plan Assessment/Plan (1) Acute osteomyelitis [...] do full ROS due to mental status [facility] Medical History MRSA (methicillin resistant staph aureus) [...] bisacodyl 10 mg rectal suppository 10 mg AK DAILY PRN constipation 05/30/23 Unknown History loperamide [...] thoracic aortic aneurysm repair Social History housing: [facility] current occupational status: retired Smoking Status: Never [...] 72.7 H, Lymph % (Auto) 11.5 L, [place] % (Auto) 9.5, Eos % (Auto) 4.6, [...] Signature (if applicable): CC: Kuldip Cosby~ Signed [facility] Work Phone: 1(654) 410-624707-28-2025 Progress note Author Hugo Cervantes [facility] Note Date/Time February 08, 2025 8:55 am [facility] Medical Records Department [address] [place] [address] Progress Note - Hospitalist 02/08/25 0827 MR#: [id number] Acct: [id number] Name: RICHARD ROY Rep #:[id number] : 1945 79 From: Hugo hollis MD PCP: Kuldip Cosby Status:ADM IN Location: [place] [address] Subjective Subjective Doing well, no issues overnight. [...] 72.7 H, Lymph % (Auto) 11.5 L, Ni[place] % (Auto) 9.5, Eos % (Auto) 4.6, [...] DVT: Eliquis Charges/Coding Visit Charges Inpatient E&M: 94492 Subs Hosp L2 02/08/25 0855 <Electronically signed by Hugo Cervantes MD> Cosigner Signature (if applicable): CC: ~ Signed [facility] Work Phone: 1(693) 307-461507-27-2025 Progress note Author Kee Mejia [facility] Note Date/Time February 07, 2025 9:40 am [facility] Medical Records Department [address] [place] [address] Progress Note 02/07/25912 MR#: [id number] Acct: [id number] Name: RICHARD ROY Rep #:[id number] : 1945 79 From: Kee Mejia DPM PCP: Kuldip Cosby TECHNOLOGY DIRECTOR-C Status:ADM IN Location: [facility] [id number]- [id number] Subjective Subjective Patient was seen this [...] (Auto) 66.1, Lymph % (Auto) 15.0 L, [place]ara % (Auto) 9.5, Eos % (Auto) 6.8 [...] all times. Podiatry will continue to follow. 02/07/25 6870 <Electronically signed by Kee Mejia DPM> Kee Mejia DPM Cosigner Signature (if applicable): CC: ~ Signed [facility] Work Phone: 1(383) 390-847207-27-2025 Progress note Author Hugo Cervantes [facility] Note Date/Time February 07, 2025 9:32 am [facility] Medical Records Department [address] [place] [address] Progress Note - Hospitalist 02/07/25917 MR#: [id number] Acct: [id number] Name: RICHARD ROY Rep #:[id number] : 1945 79 From: Hugo hollis MD PCP: Kuldip Cosby TECHNOLOGY DIRECTORLisaC Status:ADM IN Location: [facility] [id number]- 1 Subjective Subjective Doing well, wound looks [...] (Auto) 66.1, Lymph % (Auto) 15.0 L, [place] % (Auto) 9.5, Eos % (Auto) 6.8 [...] DVT: Eliquis Charges/Coding Visit Charges Inpatient E&M: 27453 Subs Hosp L2 02/07/25 0932 <Electronically signed by Hugo Cervantes MD> Cosigner Signature (if applicable): CC: ~ Signed [facility] Work Phone: [phone] Consult note Author Haile Bautista [facility] Note Date/Time February 07, 2025 9:18 am [facility] Medical Records Department [address] [facility] [place] [address] Pharmacokinetic/Renal -Consult 02/06/252218 MR#: [id number] Acct: [id number] Name: RICHARD ROY Rep #:[id number] : 1945 79 From: Haile Bautista PCP: Kuldip Cosby TECHNOLOGY DIRECTORJay Jay Status:ADM IN Location: [place] [address] Consult Antibiotic Management Pharmacy has been consulted [...] Preliminary Meth. resistant Staph. 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 Gram positive organism 02/03/25 18:00 Wound - [...] [date and time ordered]: 02/07/25 @ 0600 07/26/25 2222 <Electronically signed by Haile mcdowell> Date _ Haile Bautista 02/07/25 0918 <Electronically signed by Hugo painter MD> Cosigner Signature (if applicable): Date Hugo Cervantes MD CC: ~ Signed [facility] Work Phone: 1([phone]) 613-892007-27-2025 Consult note Author Haile Bautista [facility] Note Date/Time February 07, 2025 9:18 am [facility] Medical Records Department [address] [place] [address] Pharmacokinetic/Renal -Consult 02/07/25 0650 MR#: [id number] Acct: [id number] Name: RICHARD ROY Rep #:[id number] : 1945 79 From: Haile Bautista PCP: Kuldip Cosby Status:ADM IN Location: [place] [address] Consult Antibiotic Management Pharmacy has been consulted [...] [date and time ordered]: 02/08/25 @ 1830 07/27/25 0651 <Electronically signed by Haile mcdowell> Date _ Haile Bautista 02/07/25 0918 <Electronically signed by Hugo painter MD> Cosigner Signature (if applicable): Date Hugo Cervantes MD CC: ~ Signed [facility] Work Phone: 1([phone] 494-611807-26-2025 Consult note Author Hugo Interiano [facility] Note Date/Time February 06, 2025 4:31 pm [facility] Medical Records Department [address] [place], [place] [address] [address] Pharmacokinetic/Renal -Consult 02/06/25 1630 MR#: [id number] Acct: [id number] Name: RICHARD ROY Rep #:[id number] : 1945 79 From: Hugo Garcia [facility] PCP: Kuldip Cosby Status:ADM IN Location: [place] [address] Consult Antibiotic Management Pharmacy has been consulted [...] Preliminary Meth. resistant Staph. 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 Gram positive organism 02/03/25 18:00 Wound - [...] 02/06/25 1631 <Electronically signed by Hugo Gallardo [facility]> Date _ Hugo Interiano [facility] Cosigner Signature (if applicable): Date CC: ~ Signed [facility] Work Phone: 1([phone]) 605-645107-26-2025 Progress note Author Kee Mejia [facility] Note Date/Time February 06, 2025 10:5 8am [facility] Medical Records Department [address] [place] [address] Progress Note 02/06/25 1054 MR#: [id number] Acct: [id number] Name: RICHARD ROY Rep #:[id number] : 1945 79 From: Kee Mejia DPM PCP: Kuldip Cosby TECHNOLOGY DIRECTORJay Jay Status:ADM IN Location: [place] [address] Subjective Subjective Patient was seen this morning [...] / 425 Output Total 850 / 850 2009 1200 / 1200 Balance 961.25 / [...] RDW Std Deviation 42.9, RDW Coeff of Natahniel 13.6, Plt Count 262, MPV 9.2, Immature Gran % (Auto) 0.800, Neut % (Auto) 74.2 H, Lymph % (Auto) 10.1 L, [place] % (Auto) 8.6, Eos % (Auto) 5.9 [...] Preliminary Meth. resistant Staph. 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 No complication. Reading Location: [facility] Physical Exam Const alert and no apparent [...] Signature (if applicable): Date cc: ~* Signed [facility] Work Phone: [phone]) 488-721707-26-2025 Progress note Author Hugo Cervantes [facility] Note Date/Time February 06, 2025 10:2 6am [facility] Medical Records Department [address] [place] [address] Progress Note - Hospitalist 02/06/25905 MR#: [id number] Acct: [id number] Name: RICHARD ROY Rep #:[id number] : 1945 79 From: Hugo hollis MD PCP: Kuldip Cosby TECHNOLOGY DIRECTORLisaC Status:ADM IN Location: [place] [address] Subjective Subjective No issues overnight, tolerated surgery [...] 74.2 H, Lymph % (Auto) 10.1 L, [place] % (Auto) 8.6, Eos % (Auto) 5.9 [...] Preliminary Meth. resistant Staph. 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 No complication. Reading Location: [facility] Physical Exam Narrative General: Alert, Oriented [...] DVT: Lovenox Charges/Coding Visit Charges Inpatient E&M: 61997 Subs Hosp L2 02/06/25 1026 <Electronically signed by Hugo Cervantes MD> Cosigner Signature (if applicable): CC: ~ Signed [facility] Work Phone: 1([phone]) 266-858407-25-2025 Consult note Author Kareem Pabon [facility] Note Date/Time February 05, 2025 2:23 pm [facility] Medical Records Department [address] [place] [address] Anesthesia Postop Eval I 02/05/25 1422 MR#: [id number] Acct: [id number] Name: RICHARD ROY Rep #:[id number] : 1945 79 From: Kareem REDMAN PCP: Kuldip Cosby TECHNOLOGY DIRECTOR-C Status:ADM IN Y Race: C Location: [place] [address] 11-12 Anesthesia: Postop Eval I Current Vital Signs Temperature: 98.9 F Pulse Rate: 60 Blood Pressure: 155/75 Respiratory Rate: 16 Pulse Ox: 100 Assessment Airway patent: Yes Spontaneous unlabored respirations: Yes nausea: No Vomiting: No Anesthesia Complication: No Fluid Hydration Crystalloid volume administer (ml): 100 Total IV fluid infused: 100 Progress Note Anesthesia document: Postop Eval 1 completed: Yes 02/05/25 1423 <Electronically signed by Kareem Pabon CRNA> Date _ Kareem Pabon CRNA Cosigner Signature: Date CC: ~ Signed [facility] Work Phone: [phone]) 680-406507-25-2025 Radiology Diagnostic study [facility]07-25-2025 Consult note Author Vega Hahn [facility] Note Date/Time February 05, 2025 1:16 pm [facility] Medical Records Department [address] [place] [address] Pre-Anesthesia Evaluation 02/05/25 1258 MR#: [id number] Acct: [id number] Name: RICHARD ROY Rep #:[id number] : 1945 79 From: Vega Hahn MD PCP: Kuldip Cosby Status:ADM IN Y Race: C Location: [place] [address] ASA Classification* ASA Classification ASA Classification: 4 [...] ray amputation Anesthesia History 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 - 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 Hx Hospitalization Yes: GI BLEED 05/30/23 11:36 [...] take am of surgery PONV PONV - 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: PONV - 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 Female HX of Motion Sickness HX of N/V After Surgery Non-Smoker Duration of Surgery greater than 60 minutes Number of Risk Factors PONV Score Height & Weight Height & Weight: Anesthesia: Height & Weight Height 6 ft 02/05/25 11:18 Weight: 118 kg 02/05/25 11:18 Body Mass Index (BMI) 35.2 02/05/25 11:18 Respiratory Assessment Respiratory Assessment - 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: Respiratory Tract Infection Hx - 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 Hx Respiratory Tract Infection Yes: pneumonia 02/05/25 02:17 STOP Sleep Apnea STOP Sleep Apnea - 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: STOP Sleep Apnea - 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 Hx Hypertension Yes 02/03/25 10:30 Hx Sleep [...] Tobacco Use History Tobacco Use History - 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: Tobacco Use History - 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 Tobacco Use Smoking Status Never smoker 02/03/25 01:28 Hx Tobacco Use No 02/03/25 01:28 Years Smoking Packs Smoked per Day Smoking Cessation Date was within the last 15 years Hx Smoking Cessation Date Hx Smoking Cessation No 02/03/25 01:28 Counseling Hematologic Medial History Hematologic Hx - 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: 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.] 100 Unit/Ml Insuln.Pen SC Not Given ACHS [facility] Protocol Loperamide HCl 2 mg 02/03/25 01:20 [...] Powder 15gm Bottle TOPICAL 1 applic BID [facility] Administration Protocol Ondansetron HCl 4 mg 02/03/25 [...] 1 Gm Tablet PO Not Given 0700,1100,1600 [facility] Tamsulosin HCl 0.4 mg 02/03/25 22:00 02/04/25 22:14 Tamsulosin Hcl 0.4 Mg Capsule PO 0.4 mg QHS [facility] Administration Vancomycin Protocol 1 lab 02/06/25 08:30 Vancomycin Trough/Random Due 02/06/25 10:30 [facility]ILY [facility] MRSA (methicillin resistant staph aureus) [...] bisacodyl 10 mg rectal suppository 10 mg AK DAILY PRN constipation 05/30/23 Unknown History loperamide [...] thoracic aortic aneurysm repair Social History housing: [facility] current occupational status: retired Smoking Status: Never smoker alcohol intake: never substance use type: does not use Review of Systems (Anesthesia) ROS Narrative System reviewed and no additional complaints, except as documented. 02/05/25 1316 <Electronically signed by Vega sales MD> Date _ Vega Hahn MD Cosigner Signature: Date CC: ~ Signed [facility] Work Phone: [phone] Procedure [facility] 02-05-2025 Progress note Author Hugo Cervantes [facility] Note Date/Time February 05, 2025 8:40 am [facility] Medical Records Department [address] [place] [address] Progress Note - Hospitalist 02/05/25 0838 MR#: [id number] Acct: [id number] Name: RICHARD ROY Rep #:[id number] : 1945 79 From: Hugo hollis MD PCP: Kuldip CosbyC Status:ADM IN Location: [place] [address] Subjective Subjective No issues overnight. Hemoglobin and [...] 76.4 H, Lymph % (Auto) 9.4 L, [place] % (Auto) 8.0, Eos % (Auto) 5.2 [...] DVT: Lovenox Charges/Coding Visit Charges Inpatient E&M: 01474 Subs Hosp L2 02/05/25 0840 <Electronically signed by Hugo Cervantes MD> Cosigner Signature (if applicable): CC: ~ Signed [facility] Work Phone: [phone] Consult note Author Deangelo Quintero [facility] Note Date/Time February 04, 2025 10:0 7pm [facility] Medical Records Department [address] [place] [address] Pharmacokinetic/Renal -Consult 02/04/252206 MR#: [id number] Acct: [id number] Name: RICHARD ROY Rep #:[id number] : 1945 79 From: Deangelo Calvillo od PCP: Kuldip Cosby TECHNOLOGY DIRECTOR-C Status:ADM IN Y Location: [place] [address] Consult Antibiotic Management Pharmacy has been consulted [...] by Deangelo north> Date _ Deangelo Quintero Cosigner Signature (if applicable): Date CC: ~ Signed [facility] Work Phone: [phone] Consult note Author Meghana Cole [facility] Note Date/Time February 04, 2025 7:36 pm [facility] Medical Records Department [address] [place] [address] Consultation - Surgical 02/04/25729 MR#: [id number] Acct: [id number] Name: RICHARD ROY Rep #:[id number] : 1945 79 From: Meghana LOZA PCP: Kuldip Cosby TECHNOLOGY DIRECTORLisaC Status:[facility] Assessment & Plan Assessment/Plan (1) Type [...] a 79 M who presented to the [facility] ER on 02/02/25 with new cough, [...] from that. Heis on Eliquis for Afib. [facility] Medical History (Updated 02/04/25 @ 19:03 by [...] bisacodyl 10 mg rectal suppository 10 mg AK DAILY PRN constipation 05/30/23 Unknown History loperamide [...] thoracic aortic aneurysm repair Social History housing: [facility] current occupational status: retired Smoking Status: Never [...] 80.0 H, Lymph % (Auto) 5.3 L, [place] % (Auto) 9.4, Eos % (Auto) 4.1, [...] Loaiza RVT Charges/Coding Visit Charges Inpatient E&M: 23425 Init Hosp L2 02/04/251905 <Electronically signed by Meghana LOZA> Cosigner Signature (if applicable): 02/04/251935 <Electronically signed by Aneesh Ac MD> CC: Kuldip Cosby~ Signed [facility] Work Phone: 1(671) 307-182607-24-2025 Progress note Author Kee Mejia [facility] Note Date/Time February 04, 2025 3:41 pm [facility] Medical Records Department [address] [place] [address] Progress Note 02/04/25 1537 MR#: [id number] Acct: [id number] Name: RICHARD ROY Rep #:[id number] : 1945 79 From: Kee Mejia DPM PCP: Kuldip Cosby Status:ADM IN Location: [facility] [id number]- 1 Subjective Subjective Patient was seen today [...] 80.0 H, Lymph % (Auto) 5.3 L, [place] % (Auto) 9.4, Eos % (Auto) 4.1, [...] Mejia Referring Physician: Kuldip Cosby Performed By: Fadia, Giancarlo, RVT Physical Exam Const alert and no [...] Cosigner Signature (if applicable): CC: ~ Signed [facility] Work Phone: [phone]) [phone] Consult note Author Crys Carvajal [facility] Note Date/Time February 04, 2025 10:5 3am [facility] Medical Records Department [address] [place] [address] Pharmacokinetic/Renal -Consult 02/04/25 1052 MR#: [id number] Acct: [id number] Name: RICHARD ROY Rep #:[id number] : 1945 79 From: Crys Carvajal PCP: Kuldip Cosby Status:ADM IN Y Location: [place] [address] Consult Antibiotic Management Pharmacy has been consulted [...] monitor and adjust dosing as required. 02/04/25 8067 <Electronically signed by Crys Carvajal > Date _ Crys Carvajal Cosigner Signature (if applicable): Date CC: ~ Signed [facility] Work Phone: [phone] Progress note Author Hugo Cervantes [facility] Note Date/Time February 04, 2025 9:05 am [facility] Records Department [address] [facility] [place] [address] Progress Note - Hospitalist 02/04/25901 MR#: [id number] Acct: [id number] Name: RICHARD ROY Rep #:[id number] : 1945 79 From: Hugo hollis MD PCP: Kuldip Cosby Status:ADM IN Location: [place] [address] Subjective Subjective No issues overnight, awaiting MRI [...] 80.0 H, Lymph % (Auto) 5.3 L, [place] % (Auto) 9.4, Eos % (Auto) 4.1, [...] DVT: Lovenox Charges/Coding Visit Charges Inpatient E&M: 09470 Subs Hosp L2 02/04/25 0905 <Electronically signed by Hugo Cervantes MD> Cosigner Signature (if applicable): CC: ~ Signed [facility] Work Phone: [phone] 191-486007-24-2025 Consult note Author Kee Mejia [facility] Note Date/Time February 03, 2025 11:4 9pm [facility] Medical Records Department [address] [place] [address] Consultation 02/03/251814 MR#: [id number] Acct: [id number] Name: RICHARD ROY Rep #:[id number] : 1945 79 From: Kee Mejia DPM PCP: Kuldip Cosby TECHNOLOGY DIRECTORLisaC Status:ADM IN Location: [facility] [id number]- 1 Assessment & Plan Assessment/Plan (1) Cellulitis [...] to his pacemaker - I discussed with opto mechanical technician and they are going to check [...] of heart disease and has a pacemaker. [facility] Medical History History of stress test History [...] bisacodyl 10 mg rectal suppository 10 mg AK DAILY PRN constipation 05/30/23 Unknown History loperamide [...] thoracic aortic aneurysm repair Social History housing: [facility] current occupational status: retired Smoking Status: Never [...] 86.2 H, Lymph % (Auto) 3.6 L, [place] % (Auto) 8.7, Eos % (Auto) 0.6, [...] Clarity Clear, Urine pH 5.0, Ur Specific [place] 1.015, Urine Protein 30 H, Urine Glucose [...] 83.8 H, Lymph % (Auto) 4.0 L, [place] % (Auto) 8.4, Eos % (Auto) 2.9, [...] 3. Chronic paranasal sinus disease. Reading Location: [facility] Chest X-Ray 02/02/25 20:20 IMPRESSION: Pulmonary findings as above. Reading Location: [facility] Foot X-Ray 02/02/25 20:20 IMPRESSION: No acute osseous abnormality. Reading Location: [facility] Extremity Arterial Study 02/03/25 10:01 Interpretation Summary Right JOSTIN 0.88, moderate arterial insufficiency. Doppler/PVR waveforms of the right ankle normal at rest. Left JOSTIN 1.05, normal though may be artificially elevated. Doppler/PVR waveformsof the left leg mildly diminished infrapopliteal. TBI diminished. Ordering Physician: Kee Mejia Referring Physician: Kuldip Cosby Performed By: Giancarlo Loaiza T 02/03/252345 <Electronically signed by Kee Mejia DPNelson> Cosigner Signature (if applicable): CC: Kuldip Cosby~ [...] (if applicable): cc: Kuldip Cosby ~* Signed [facility] Work Phone: 1([phone]) 203-290007-23-2025 [facility]07-23-2025 Progress note Author Hugo Cervantes [facility] Note Date/Time February 03, 2025 11:5 6am [facility] Medical Records Department [address] [place] [address] Progress Note - Hospitalist 02/03/25 0956 MR#: [id number] Acct: [id number] Name: RICHARD ROY Rep #:[id number] : 1945 79 From: Hugo hollis MD PCP: Kuldip Cosby Status:ADM IN Location: [place] [id number]- 1 Subjective Subjective No issues overnight, maintaining oxygen [...] 86.2 H, Lymph % (Auto) 3.6 L, [place] % (Auto) 8.7, Eos % (Auto) 0.6, [...] Clarity Clear, Urine pH 5.0, Ur Specific [place] 1.015, Urine Protein 30 H, Urine Glucose [...] 83.8 H, Lymph % (Auto) 4.0 L, [place] % (Auto) 8.4, Eos % (Auto) 2.9, [...] 3. Chronic paranasal sinus disease. Reading Location: [facility] Chest X-Ray 02/02/25 20:20 IMPRESSION: Pulmonary findings as above. Reading Location: [facility] Foot X-Ray 02/02/25 20:20 IMPRESSION: No acute osseous abnormality. Reading Location: [facility] Physical Exam Narrative General: Alert but drowsy, [...] DVT: Lovenox Charges/Coding Visit Charges Inpatient E&M: 58730 Subs Hosp L2 02/03/25 1156 <Electronically signed by Hugo Cervantes MD> Cosigner Signature (if applicable): CC: ~ Signed [facility] Work Phone: [phone] Consult note Author Aneesh Suazo [facility] Note Date/Time February 03, 2025 2:11 am [facility] Medical Records Department [address] [place] [address] Pharmacokinetic/Renal -Consult 02/03/25 0208 MR#: [id number] Acct: [id number] Name: RICHARD ROY Rep #:[id number] : 1945 79 From: Aneesh Suazo PCP: Kuldip Cosby TECHNOLOGY DIRECTORJay Jay Status:ADM IN Location: [place] [address] Consult Antibiotic Management Pharmacy has been consulted [...] [date and time ordered]: 02/04/25 @0930 02/03/25 020 <Electronically signed by Aneesh estrada> Date _ Aneesh Suazo 02/03/25210 <Electronically signed by Karen gallo MD> Cosigner Signature (if applicable): Date Karen Aly MD CC: ~ Signed [facility] Work Phone: [phone]) [phone] History and physical note Author Karen Aly [facility] Note Date/Time February 03, 2025 12:2 6am [facility] Medical Records Department [address] [place] [address] H&P Exam - Hospitalist 02/02/25 2241 MR#: [id number] Acct: [id number] Name: RICHARD ROY Rep #:[id number] : 1945 79 From: Karen Aly MD PCP: Kuldip Cosby TECHNOLOGY DIRECTORJay Jay Status:ADM IN Location: [facility] GI032-7 HPI - General General Date of Admission: [...] behavioral disturbance history who presents to the [facility] ED on 02/02/2025 with history of recent [...] bisacodyl 10 mg rectal suppository 10 mg AK DAILY PRN constipation 05/30/23 Unknown History loperamide [...] thoracic aortic aneurysm repair Social History housing: [facility] current occupational status: retired Smoking Status: Never [...] 86.2 H, Lymph % (Auto) 3.6 L, [place] % (Auto) 8.7, Eos % (Auto) 0.6, [...] Clarity Clear, Urine pH 5.0, Ur Specific [place] 1.015, Urine Protein 30 H, Urine Glucose [...] 3. Chronic paranasal sinus disease. Reading Location: [facility] Chest X-Ray 02/02/25 20:20 IMPRESSION: Pulmonary findings as above. Reading Location: [facility] Foot X-Ray 02/02/25 20:20 IMPRESSION: No acute osseous abnormality. Reading Location: [facility] Assessment & Plan Assessment/Plan (1) Pneumonia: PLAN: [...] behavioral disturbance history who presents to the [facility] ED on 02/02/2025 with history of recent [...] 16 minutes. Charges/Coding Visit Charges Inpatient E&M: 90595 Init Hosp L3 Procedures Hospitalists Procedures: 04933 Advncd Care Plan 30 Min 02/03/25 0026 <Electronically signed by Karen Aly MD> Cosigner Signature (if applicable): CC: Dr. Karen Aly MD; Kuldip Cosby~ Signed [facility] Work Phone: 1(683) 184-698007-23-2025 Evaluation note* Diagnosis Onset Date Resolution Status [...] foot ulcer acute February 02, 2025 11:12pm [facility] Work Phone: 1(712) 454-792007-23-2025 Evaluation note* Diagnosis Onset Date Resolution Status Admit Date Acute osteomyelitis of metatarsal bone of left foot acute Jan 11:12pm Cellulitis of left lower limb acute February 02, 2025 11:12pm Diabetes mellitus with diabe tic polyneuropathy acute February 02, 2025 11:12pm PAD (peripheral artery disease) acut e February 02, 2025 11:12pm Pneumonia acute February 02 11:12pm Type 2 diabetes mellitus wit h foot ulcer acute February 02, 2025 11:12pm PAD (peripheral artery disease) acut e March 03, 2025 3:23pm Type 2 diabetes mellitus wit h foot ulcer acute March 03 3:23pm [facility] Work Phone: 1(113) 112-139107-23-2025 Evaluation note* Diagnosis Onset Date Resolution Status Admit Date Acute osteomyelitis of metatarsal bone of left foot acute Jan 11:12pm Cellulitis of left lower limb acute February 02, 2025 11:12pm Diabetes mellitus with diabetic polyneuropathy acute January 11:12pm PAD (peripheral artery disease) acute February 02, 2025 11:12pm Pneumonia acute February 02 11:12pm Type 2 diabetes mellitus wit h foot ulcer acute February 02, 2025 11:12pm PAD (peripheral artery disease) acute March 03 3:23pm Type 2 diabetes mellitus wit h foot ulcer acute March 03 3:23pm Presence of cardiac pacemaker acute March 22, 2025 9:47am Atrial fibrillation chronic 2024 9:47am Diabetes chronic March 22, 2025 9:47am HLD (hyperlipidemia) chronic Mar 9:47am HTN (hypertension) chronic 2024 9:47am Sick sinus syndrome chronic 2024 9:47am [facility] Work Phone: 1(652) 716-353807-23-2025 Evaluation note* Diagnosis Onset Date Resolution Status Admit Date Acute osteomyelitis of metatarsal bone of left foot acute Jan 11:12pm Cellulitis of left lower limb acute February 02, 2025 11:12pm Diabetes mellitus with diabetic polyneuropathy acute January 11:12pm PAD (peripheral artery disease) acute February 02, 2025 11:12pm Pneumonia acute February 02 11:12pm Type 2 diabetes mellitus wit h foot ulcer acute February 02, 2025 11:12pm PAD (peripheral artery disease) acute March 03 3:23pm Type 2 diabetes mellitus wit h foot ulcer acute March 03 3:23pm Atrial fibrillation chronic 2024 9:47am Diabetes chronic March 22, 2025 9:47am HLD (hyperlipidemia) chronic Mar 9:47am HTN (hypertension) chronic 2024 9:47am Presence of cardiac pacemaker chroni c March 22, 2025 9:47am Sick sinus syndrome chronic 2024 9:47am Presence of cardiac pacemaker chroni c March 22, 2025 12:14pm Second degree AV block, Mobi tz type II chronic March 22, 2 025 12:14pm Sick sinus syndrome chronic [facility]2024 12:14pm [facility] Work Phone: 1(593) 178-495707-23-2025 Discharge summary Author Nicholas Galarza [facility] Note Date/Time February 02, 2025 10:4 5pm [facility] Medical Records Department [address] [place] [address] Emergency Department Summary 02/02/25 MR#: [id number] Acct: [id number] Name: RICHARD ROY Rep #:[id number] : 1945 79 From: Nicholas Lemons PCP: Kuldip Cosby TECHNOLOGY DIRECTOR-C Status:REG ER Location: ED HPI History of [...] bisacodyl 10 mg rectal suppository 10 mg AK DAILY PRN constipation 05/30/23 Unknown History loperamide [...] thoracic aortic aneurysm repair Social History housing: [facility] current occupational status: retired Smoking Status: Never [...] Air Room Air Oxygen Flow Rate (L/min) [facility] Narrative Medical decision making narrative: HISTORY OF PRESENT ILLNESS: Chief complaint: Cough, lethargy, altered mental status and fever 79-year-old male history of type 2 diabetes, hyperlipidemia, PE, A-fib on Eliquis, secondary heart block status post pacemaker presents with recent cough,lethargy and fever. Also noted altered mental status. History is provided by and son. notes patient was behaving normally yesterday at his [facility]. No she was called because [...] recent hospitalizations, reviewed medications. [facility] which reported no obvious focal infiltrate Factors affecting care: n as per HPI Social determinants of health: [facility] resident History obtained from others: EMS Consults: [...] Dispo: Discharge This note was generated with [employer] dictation software. It may contain incorrectwords, spelling, [...] 86.2 H Lymph % (Auto) 3.6 L [place] % (Auto) 8.7 Eos % (Auto) 0.6 [...] Clarity Clear Urine pH 5.0 Ur Specific [place] 1.015 Urine Protein 30 H Urine Glucose [...] 3. Chronic paranasal sinus disease. Reading Location: [facility] Chest X-Ray 02/02/25 20:20 IMPRESSION: Pulmonary findings as above. Reading Location: [facility] Foot X-Ray 02/02/25 20:20 IMPRESSION: No acute osseous abnormality. Reading Location: [facility] Discharge Plan Triage Chief Complaint: Fever ED [...] Patient Comments: PRN PER LONG TERM MAR. memantine 10 mg Tablet 10 mg PO BID Qty: 0 0RF acetaminophen 325 mg tablet 650 mg PO .q12hrs Patient Comments: PRN PER LONG TERM MAR bisacodyl 10 mg suppository 10 mg AK DAILY PRN (Reason: constipation) loperamide [Anti-Diarrheal (loperamide)] [...] Luis Caldera MD [Non-Staff] - Print Language: Greek What to do if you have Problems For any increased pain, shortness of breath, bleeding, nausea or vomiting, chestpain, or any unexpected problems, contact your Primary Care Provider. Call [facility] ([phone]) or report to the closest Emergency Room. Call 911 if necessary. 02/02/252244 <Electronically signed by Nicholas Galarza DO> Cosigner Signature (if applicable): CC: Kuldip Cosby ~ Signed [facility] Work Phone: 1(422) 299-946207-23-2025 Discharge summary Author Nicholas [facility] Note Date/Time February 02, 2025 10:4 5pm [facility] Medical Records Department [address] [place] [address] Emergency Department Summary 02/02/25 MR#: [id number] Acct: [id number] Name: RICHARD ROY Rep #:[id number] : [...] bisacodyl 10 mg rectal suppository 10 mg AK DAILY PRN constipation 05/30/23 Unknown History loperamide [...] thoracic aortic aneurysm repair Social History housing: [facility] current occupational status: retired Smoking Status: Never [...] reviewed, Vital signs reviewed Constitutional: please see [facility] HENT: MMM Eyes: Pupils equal round [...] MEDICAL DECISION MAKING: Chief Complaint: please see [facility] External records reviewed: No recent hospitalizations, reviewed medications. [facility]ed [facility] from [facility] which reported no obvious focal infiltrate Factors affecting care: n as per [facility] Social determinants of health: [facility] resident History obtained from others: EMS Consults: Internal medicine [facility] Narrative: The patient was initially tachypneic with [...] Dispo: Discharge This note was generated with [employer] dictation software. It may contain incorrectwords, spelling, [...] 86.2 H Lymph % (Auto) 3.6 L [place] % (Auto) 8.7 Eos % (Auto) 0.6 [...] Clarity Clear Urine pH 5.0 Ur Specific [place] 1.015 Urine Protein 30 H Urine Glucose [...] 3. Chronic paranasal sinus disease. Reading Location: [facility] Chest X-Ray 02/02/25 20:20 IMPRESSION: Pulmonary findings as above. Reading Location: [facility] Foot X-Ray 02/02/25 20:20 IMPRESSION: No acute osseous abnormality. Reading Location: [facility] Discharge Plan Triage Chief Complaint: Fever ED [...] Patient Comments: PRN PER LONG TERM MAR. memantine 10 mg Tablet 10 mg PO BID Qty: 0 0RF acetaminophen 325 mg tablet 650 mg PO .q12hrs Patient Comments: PRN PER LONG TERM MAR bisacodyl 10 mg suppository 10 mg AK DAILY PRN (Reason: constipation) loperamide [Anti-Diarrheal (loperamide)] [...] Luis Caldera MD [Non-Staff] - Print Language: Greek What to do if you have Problems For any increased pain, shortness of breath, bleeding, nausea or vomiting, chestpain, or any unexpected problems, contact your Primary Care Provider. Call [facility] ([phone]) or report to the closest Emergency Room. Call 911 if necessary. 02/02/252244 <Electronically signed by Nicholas Galarza DO> Cosigner Signature (if applicable): CC: Kuldip Cosby ~ Signed [facility] Work Phone: 1([phone]) [phone] History and physical note Author Karen Aly [facility] Note Date/Time February 03, 2025 12:2 6am [facility] Medical Records Department [address] [place] [address] H&P Exam - Hospitalist 02/02/252240 MR#: [id number] Acct: [id number] Name: RICHARD ROY Rep #:[id number] : 1945 79 From: Karen Aly MD PCP: Kuldip Cosby TECHNOLOGY DIRECTORLisaC Status:ADM IN Location: [facility] QO925-9 HPI - General General Date of Admission: [...] behavioral disturbance history who presents to the [facility] ED on 02/02/2025 with history of recent [...] [facility] magnesium 4 [facility] x [facility] History of stress test History [...] bisacodyl 10 mg rectal suppository 10 mg AK DAILY PRN constipation 05/30/23 Unknown History loperamide [...] thoracic aortic aneurysm repair Social History housing: [facility] current occupational status: retired Smoking Status: Never [...] 86.2 H, Lymph % (Auto) 3.6 L, [place] % (Auto) 8.7, Eos % (Auto) 0.6, [...] Clarity Clear, Urine pH 5.0, Ur Specific [place] 1.015, Urine Protein 30 H, Urine Glucose [...] 3. Chronic paranasal sinus disease. Reading Location: [facility] Chest X-Ray 02/02/25 20:20 IMPRESSION: Pulmonary findings as above. Reading Location: [facility] Foot X-Ray 02/02/25 20:20 IMPRESSION: No acute osseous abnormality. Reading Location: [facility] Assessment & Plan Assessment/Plan (1) Pneumonia: PLAN: [...] behavioral disturbance history who presents to the [facility] ED on 02/02/2025 with history of recent [...] 16 minutes. Charges/Coding Visit Charges Inpatient E&M: 53698 Init Hosp L3 Procedures Hospitalists Procedures: 77499 Advncd Care Plan 30 Min 02/03/25 0026 <Electronically signed by Karen Aly MD> Cosigner Signature (if applicable): CC: Dr. Karen Aly MD; Kuldip Cosby~ Signed [facility] Work Phone: 1(882) [phone] History and physical note [facility] Medical Records Department [address] [place] [address] H&P Exam - Hospitalist 02/02/252240 MR#: [id number] Acct: [id number] Name: RICHARD ROY Rep #:[id number] : 1945 79 From: Karen Aly MD PCP: Kuldip Cosby Status:ADM IN Location: [facility] YB266-0 HPI - General General Date of Admission: [...] behavioral disturbance history who presents to the [facility] ED on 02/02/2025 with history of recent [...] to magnesium 4 g IV x 1. [facility] Medical History History of stress test History [...] bisacodyl 10 mg rectal suppository 10 mg AK DAILY PRN constipation 05/30/23 Unknown History loperamide [...] thoracic aortic aneurysm repair Social History housing: [facility] current occupational status: retired Smoking Status: Never [...] 86.2 H, Lymph % (Auto) 3.6 L, [place] % (Auto) 8.7, Eos % (Auto) 0.6, [...] Clarity Clear, Urine pH 5.0, Ur Specific [place] 1.015, Urine Protein 30 H, Urine Glucose [...] 3. Chronic paranasal sinus disease. Reading Location: [facility] Chest X-Ray 02/02/25 20:20 IMPRESSION: Pulmonary findings as above. Reading Location: [facility] Foot X-Ray 02/02/25 20:20 IMPRESSION: No acute osseous abnormality. Reading Location: [facility] Assessment & Plan Assessment/Plan (1) Pneumonia: PLAN: [...] behavioral disturbance history who presents to the [facility] ED on 02/02/2025 with history of recent [...] 16 minutes. Charges/Coding Visit Charges Inpatient E&M: 83095 Init Hosp L3 Procedures Hospitalists Procedures: 13773 Advncd Care Plan 30 Min 02/03/25 0026 Cosigner Signature (if applicable): CC: Dr. Karen Aly MD; Kuldip Cosby~ Signed [facility]07-22-2025 Discharge summary [facility] Medical Records Department [address] [place] [address] Emergency Department Summary 02/02/25 MR#: [id number] Acct: [id number] Name: RICHARD ROY Rep #:[id number] : [...] bisacodyl 10 mg rectal suppository 10 mg AK DAILY PRN constipation 05/30/23 Unknown History loperamide [...] thoracic aortic aneurysm repair Social History housing: [facility] current occupational status: retired Smoking Status: Never [...] recent hospitalizations, reviewed medications. [facility]ed [facility] which reported no obvious focal infiltrate Factors affecting care: n as per HPI Social determinants of health: [facility] resident History obtained from others: EMS Consults: Internal medicine [facility] Narrative: The patient was initially tachypneic with [...] Dispo: Discharge This note was generated with [employer] dictation software. It may contain incorrectwords, spelling, [...] 86.2 H Lymph % (Auto) 3.6 L [place] % (Auto) 8.7 Eos % (Auto) 0.6 [...] Clarity Clear Urine pH 5.0 Ur Specific [place] 1.015 Urine Protein 30 H Urine Glucose [...] 3. Chronic paranasal sinus disease. Reading Location: [facility] Chest X-Ray 02/02/25 20:20 IMPRESSION: Pulmonary findings as above. Reading Location: [facility] Foot X-Ray 02/02/25 20:20 IMPRESSION: No acute osseous abnormality. Reading Location: [facility] Discharge Plan Triage Chief Complaint: Fever ED [...] Patient Comments: PRN PER LONG TERM MAR. memantine 10 mg Tablet 10 mg PO BID Qty: 0 0RF acetaminophen 325 mg tablet 650 mg PO .q12hrs Patient Comments: PRN PER LONG TERM MAR bisacodyl 10 mg suppository 10 mg AK DAILY PRN (Reason: constipation) loperamide [Anti-Diarrheal (loperamide)] [...] Luis Caldera MD [Non-Staff] - Print Language: Greek What to do if you have Problems For any increased pain, shortness of breath, bleeding, nausea or vomiting, chestpain, or any unexpected problems, contact your Primary Care Provider. Call [facility] ([phone]) or report tothe closest Emergency Room. Call 911 if necessary. 02/02/25 1730 Cosigner Signature (if applicable): CC: Kuldip Cosby ~ Signed [facility]07-22-2025 Radiology Diagnostic study note [facility] Imaging Services [address] [place], [place] [address] Foot 2 Views MR#: [id number] Acct: [id number] Name: RICHARD ROY Rep #: [id number] : 1945 M 79 From: Pascual Patino MD PCP: Kuldip Cosby Status: REG ER Study:Foot 2 Views Date of Exam: 5 Exam# [id number] Ordering Dr: Ronak Galarza DO PROCEDURE: FOOT 2 VIEWS 02/02/2025 REASON FOR EXAM: REDNESS, LATERAL 5TH DIGIT ULCER TECHNIQUE: FOOT 2 VIEWS COMPARISON: None. FINDINGS: No evidence of acute fracture or dislocation. The joint spaces are maintained. Heavy atherosclerosis. RAD/Foot 2 Views IMPRESSION: No acute osseous abnormality. Reading Location: [facility] CC: Dr. Nicholas Galarza DO; Kuldip Cosby ~ Certified Pharmacy Technician: Signed [facility]07-22-2025 Radiology Diagnostic study note [facility] Imaging Services [address] [place] [address] Chest 1 View (Portable) MR#: [id number] Acct: [id number] Name: RICHARD ROY Rep #: [id number] : 1945 M 79 From: Pascual Patino MD PCP: Kuldip Cosby Status: REG ER Study:Chest 1 View (Portable) Date of Exam: 02/02/25 Exam# [id number] Ordering Dr: Ronak Galarza DO PROCEDURE: CHEST 1 VIEW (PORTABLE) 02/02/2025 REASON FOR EXAM: ALTERED MENTAL STATUS TECHNIQUE: Frontal view of the chest. COMPARISON: 02/10/2023. FINDINGS: The heart is enlarged. Prior sternotomy. Left chest pacemaker. Left midlung consolidative opacity which may represent pneumonia (limited assessment due to rotation). RAD/Chest 1 View (Portable) IMPRESSION: Pulmonary findings as above. Reading Location: [id number] CC: Dr. Nicholas Galarza DO; Kuldip Cosby ~ Certified Pharmacy Technician: Signed [facility]07-22-2025 Radiology Diagnostic study note [facility] Imaging Services [address] [place], [place] [address] Brain/Head without Contrast MR#: [id number] Acct: [id number] Name: RICHARD ROY Rep #: [id number] : 1945 M 79 From: Philip Johnson MD PCP: Kuldip Cosby Status: REG ER Study:Brain/Head without Contrast Date of Exa m: 02/02/25 Exam# [id number] Ordering Dr: Ronak Galarza DO PROCEDURE: BRAIN/HEAD [...] 3. Chronic paranasal sinus disease. Reading Location: [facility] CC: Dr. Nicholas Galarza, DO; Kuldip Cosby ~ Certified Pharmacy Technician: Signed [facility]03-31-2025 Evaluation note* Diagnosis Onset Date Resolution Status Admit Date Presence of cardiac pacemaker acute October 12, 2024 1:09pm Atrial fibrillation chronic October 12, 2024 1:09pm Diabetes chronic October 12 1:09pm HLD (hyperlipidemia) chronic [facility] 2024 1:09pm HTN (hypertension) chronic October 12, 2024 1:09pm Sick sinus syndrome chronic October 12, 2024 1:09pm [facility] Work Phone: 1(880) 315-191003-31-2025 Evaluation note* Diagnosis Onset Date Resolution Status Admit Date Presence of cardiac pacemaker acute October 12, 2024 1:09pm Atrial fibrillation chronic October 12, 2024 1:09pm Diabetes chronic October 12 1:09pm HLD (hyperlipidemia) chronic [place] [facility] 2024 1:09pm HTN (hypertension) chronic October 12, 2024 1:09pm Sick sinus syndrome chronic October 12, 2024 1:09pm Pneumonia acute February 02 11:12pm [facility] Work Phone: 1(748) 158-219411-20-2023 Procedure [facility] 02-13-2023 Consult note Author Haile Bautista [facility] February 13, 2023 2:50pm Note Date/Time February 13, 2023 2:5 0pm [facility] Medical Records Department [address] [place] [address] Counseling Note - Pharmacy 02/13/23 1449 MR#: [id number] Acct: [id number] Name: RICHARD ROY Rep #:[id number] : 1945 77 From: Haile Bautista PCP: Dr. Luis Caldera MD Status :ADM IN Y Location: [facility] WN502-0 Pharmacy [place] Med Reconciliation Pharmacy Service has performed discharge [...] 02/13/23 02/13/23 1450 <Electronically signed by Haile Kaufman r> Date _ Haile Grant Signature (if applicable): Date __ CC: ~ Signed [facility] Work Phone: 1(934) 388-794208-02-2023 Discharge summary Author Gabriel Giraldo [facility] February 13, 2023 2:24pm Note Date/Time February 13, 2023 2:1 5pm [facility] Medical Records Department [address] [place] [address] Transfer to [facility] MR#: [id number] Acct: [id number] Name: RICHARD ROY Rep #:[id number] : [...] PRIOR TO HIS/HER TRANSFER TO [facility]. 02/13/23 1424<Electronically signed by Gabriel Giraldo [...] 100 unit/mL insulin pen See Protocol subcut [facility] Protocol: 6. Sliding Scale Insulin Custom [...] in before D/C Order can be placed): [facility] 02/13/23 1424 <Electronically signed by Gabriel Giraldo DO> Cosigner Signature (if applicable): CC: Dr. Luis Caldera MD; Dr. Smith Leija MD ~ [facility] Work Phone: 1(432) 252-993208-01-2023 Progress note Author Gabriel Bol[facility]grand [facility] February 12, 2023 4:48pm Note Date/Time February 12, 2023 4:4 8pm [facility] Medical Records Department [address] [place] [address] Progress Note - Hospitalist 02/12/23 1639 MR#: [id number] Acct: [id number] Name: RICHARD ROY Rep #:[id number] : 1945 77 From: Garbiel Giraldo DO PCP: Dr. Luis Caldera MD Status :ADM IN Location: [place] [address] Reason for Visit Reason for Visit: Diagnoses [...] 76.5 H, Lymph % (Auto) 8.1 L, [place] % (Auto) 12.5 H, Eos % (Auto) [...] 35 minutes Charges/Coding Visit Charges Inpatient E&M: 30110 Subs Hosp L2 02/12/23 1188 <Electronically signed by Gabriel Giraldo DO> Cosigner Signature (if applicable): CC: ~ Signed [facility] Work Phone: 1(841) 108-519708-01-2023 Consult note Author Smith Leija [facility] February 12, 2023 2:16pm Note Date/Time February 12, 2023 2:1 6pm [facility] Medical Records Department [address] [place] [address] Consultation - Infectious Dx 02/12/23 1412 MR#: [id number] Acct: [id number] Name: RICHARD ROY Rep #:[id number] : 1945 77 From: Smith mcdowell MD PCP: Dr. Luis Caldera MD Status :ADM IN Location: [facility] NR060-4 Assessment & Plan Assessment/Plan (1) Bacteremia: PLAN: [...] in ED 02/10, sent back to [facility]. Had low grade fever, returned here with (+) ucx and (+)bcx with GNR. Admitted on ceftriaxone, feeling ok today. No complaints, deniesfever, chest pain, abd pain, dysuria, n/v/d. Full ROS performed and neg except as noted above. [facility] Medical History AAA (abdominal aortic aneurysm) Amputation [...] Hx of abdominal surgery Social History housing: [facility] current occupational status: retired Smoking Status: Never [...] 76.5 H, Lymph % (Auto) 8.1 L, [place] % (Auto) 12.5 H, Eos % (Auto) 0.8, Baso % (Auto) 0.1, Absolute Neuts(auto) 5.7, Absolute Lymphs (auto) 0.61 L, Nucleated RBC % 0, PT 19.3 H, INR 1.6 Rhythm Strip Rhythm Strip: paced Rate: 95 Ectopy: None 02/12/23 1416 <Electronically signed by Smith Leija MD> Cosigner Signature (if applicable): CC: Dr. Luis Caldera MD; Dr. Smith Leija MD~ Signed [facility] Work Phone: 1(806) 786-471708-01-2023 Discharge summary Author Dandy Sauer [facility] February 12, 2023 2:03am Note Date/Time February 11, 2023 5:05 pm [facility] Medical Records Department [address] [place] [address] Emergency Department Summary 02/11/23 MR#: [id number] Acct: [id number] Name: RICHARD ROY Rep #:[id number] : 1945 77 From: Dandy Sauer MD PCP: Dr. Luis Caldera MD Status :ADM IN Location: [place] [address] HPI History of Present Illness Chief Complaint: [...] mostly the lethargy is the issue acutely. [facility] Medical History (Updated 02/11/23 @ 19:31 [...] Hx of abdominal surgery Social History housing: [facility] current occupational status: retired Smoking Status: Never [...] infection), Bacteremia Disposition Disposition: Acute Care Hospital [facility] Discharge Date/Time: 02/11/23 19:06 What to do if you have Problems For any increased pain, shortness of breath, bleeding, nausea or vomiting, chestpain, or any unexpected problems, contact your Primary Care Provider. Call [facility] ([phone]) or report to the closest Emergency Room. Call 911 if necessary. 02/12/23 020 <Electronically signed by Dandy Sauer MD> Cosigner Signature (if applicable): CC: Dr. Luis Caldera MD ~ Signed [facility] Work Phone: 1(896) 303-675107-31-2023 History and physical note Author Jesus Burnham [facility] February 11, 2023 7:38pm Note Date/Time February 11, 2023 7:39 pm [facility] Medical Records Department [address] [place] [address] History & Physical Exam 02/11/231928 MR#: [id number] Acct: [id number] Name: RICHARD ROY Rep #:[id number] : 1945 77 From: Jesus Burnham MD PCP: Dr. Luis Caldera MD Status :ADM IN Location: [facility] AJ082-6 HPI - General General Date of Admission: [...] tract infection and [facility] the [facility] facility, however, today the patient has become more obtunded and sleeping excessively. Lactic acid elevation is noted and patient is on pacemaker. He denies any chest pain, shortness of breath and/or fevers orchills however is not a great historian at present time. Patient's is present at bedside and apparently the son is the DURABLE POWER OF PRECISION DEVICES INSPECTOR/TESTER for healthcare and has orders signed for DNR CCA with no intubation. He will be admitted to the general medical floor placed on Rocephin, consult for infectiousdisease due to new implanted pacemaker. [facility] Medical History Amputation of right great toe [...] Hx of abdominal surgery Social History housing: [facility] current occupational status: retired Smoking Status: Never [...] on Coumadin Charges/Coding Visit Charges Inpatient E&M: 06803 Init Hosp L2 02/11/231937 <Electronically signed by Jesus Burnham MD> Cosigner Signature (if applicable): CC: Dr. Luis Caldera MD; Dr. Jesus Burnham MD~ Signed [facility] Work Phone: 1([phone]) [phone] Miscellaneous Notes* Telephone Encounter - Donna Taniakandy MACKEY - 01/28/2023 2:22 PM EDT Miya with [facility] calls to report pt was admitted to their facility over the weekend. Miya is requesting immunization record be faxed to: [phone]. Immunization record faxed as requested. Tania Heller LPN [facility] Discharge summary Author Ryan Tinoco [facility] January 26, 2023 12:56pm Note Date/Time January 26, 2023 12:4 6pm [facility] Medical Records Department [address] [place], [place] [address] [address] Discharge Summary 01/26/23 1157 MR#: [id number] Acct: [id number] Name: RICHARD ROY Rep #:[id number] : 1945 77 From: Ryan Delgado PCP: Dr. Luis Caldera MD Status :ADM IN Location: [facility] [id number] Providers Date of Admission: 01/21/23 Date [...] is a 77-year-old gentleman being admitted from [facility] for multiple episodes of syncope and [...] the . His medical care is under [facility]. 01/22: Hemoglobin dropped to 8.9. Patient had [...] there was 2 dropped heartbeat in EKG. supervisor microwave shows heart rate slowed down to 48 to 60/min. EKG in the morning about 6 AM today shows sinus rhythm with second- degree Mobitz type II block, RBBB, LAFB bifascicular block. Patient has history of bifascicular block. I talked to the patient's and informed her about the update. Patient has history of ascending aortic aneurysmand had that repaired along with aortic valve in [facility]. His dietary services manager is Dr. Huston in [facility]. I think this is most probably due to start of the octreotide drip as patient was in sinus normal rhythm at time ofadmission. Octreotide discontinued. Nursing Home Physician consulted. 2D echo ordered. 01/23: Echo states EF 55 to 60%, normal LV systolic function. Trivial MR. Mild diffuse aortic valve calcification. Normal left atrium. Plan: Nursing Home Physician will talk to Dr. Chandra regarding assessment for pacemaker 01/24: Patient has hypernatremia and hyperchloremia. IV fluid D5W started. Patient is still has AV block, P waves but rhythm is irregular. Twelve-lead EKGordered. Discussed with the dietary services manager. Dr. Ling will talk to Dr. Chandra. 01/25: For now plan is to monitor. No plan for pacemaker as per the dietary services manager. supervisor microwave shows irregular heartbeat , Mobitz type II. [...] or advanced directive. His is power of contracts attorney for health. After discussion of benefits/risks [...] Heart rate in 50s.. Discussed with the dietary services manager. No chest pain or tightness. Physical exam [...] 78.4 H, Lymph % (Auto) 8.1 L, Niobrara % (Auto) 9.6, Eos % (Auto) 1.6, [...] in before D/C Order can be placed): [facility] Facility Charges/Coding Visit Charges Inpatient E&M: 41254 Disch Hosp >30min 01/26/23 1256 <Electronically signed by Ryan Tinoco MD> Cosigner Signature (if applicable): CC: Dr. Luis Caldera MD; Dr. Ryan Tinoco MD~ Signed [facility] Work Phone: 1([phone]) 316-506807-15-2023 Discharge summary Author Ryan Tinoco [facility] January 26, 2023 11:57am Note Date/Time January 26, 2023 7:59 am [facility] Medical Records Department [address] [place] [address] Transfer to [facility] MR#: [id number] Acct: [id number] Name: RICHARD ROY Rep #:[id number] : [...] PRIOR TO HIS/HER TRANSFER TO THE [facility]. 01/26/23 1157<Electronically signed by Ryan Tinoco MD> [...] is a 77-year-old gentleman being admitted from [facility] for multiple episodes of syncope and [...] the . His medical care is under [facility]. 01/22: Hemoglobin dropped to 8.9. Patient had [...] there was 2 dropped heartbeat in EKG. supervisor microwave shows heart rate slowed down to 48 to 60/min. EKG in the morning about 6 AM today shows sinus rhythm with second- degree Mobitz type II block, RBBB, LAFB bifascicular block. Patient has history of bifascicular block. I talked to the patient's and informed her about the update. Patient has history of ascending aortic aneurysmand had that repaired along with aortic valve in [facility]. His dietary services manager is Dr. Huston in [facility]. I think this is most probably due to start of the octreotide drip as patient was in sinus normal rhythm at time ofadmission. Octreotide discontinued. Nursing Home Physician consulted. 2D echo ordered. 01/23: Echo states EF 55 to 60%, normal LV systolic function. Trivial MR. Mild diffuse aortic valve calcification. Normal left atrium. Plan: Nursing Home Physician will talk to Dr. Chandra regarding assessment for pacemaker 01/24: Patient has hypernatremia and hyperchloremia. IV fluid D5W started. Patient is still has AV block, P waves but rhythm is irregular. Twelve-lead EKGordered. Discussed with the dietary services manager. Dr. Ling will talk to Dr. Chandra. 01/25: For now plan is to monitor. No plan for pacemaker as per the dietary services manager. supervisor microwave shows irregular heartbeat , Mobitz type II. [...] or advanced directive. His is power of contracts attorney for health. After discussion of benefits/risks [...] 100 unit/mL insulin pen See Protocol subcut [facility] Protocol: 6. Sliding Scale Insulin Custom [...] in before D/C Order can be placed): [facility] Facility (6) Anemia Qualifiers: Anemia type: iron deficiency Iron deficiency anemia type: other iron deficiency Qualified Code(s): D50.8 - Other iron deficiency anemias 01/26/23 1153 <Electronically signed by Ryan Tinoco MD> Cosigner Signature (if applicable): CC: Dr. Luis Caldera MD; Dr. Lizzeth Riggs MD ~ [facility] Work Phone: 1(896) 687-411707-14-2023 Progress note Author [facility] January 25, 2023 4:08pm Note Date/Time January 25, 2023 1:09 pm [facility] Medical Records Department [address] [place] [address] Progress Note - Cardiology 01/25/23 1308 MR#: [id number] Acct: [id number] Name: RICHARD ROY Rep #:[id number] : 1945 77 From: Rebecca LOZA PA PCP: Dr. Luis Caldera MD Status :ADM IN Location: [place] [id number] Documented by User: DENIA Wilkinson 01/25/23 [...] 15, IgE 399, Immunofixation Screen Comment, Albumin (ADVID) 2.5 L, Albumin/Globulin (DAVID) 1.4, Elxhm-5-Qcsnolxax DAVID 0.2, Wbysm-9-Qgagsxvvp DAVID 0.6, Beta-Globulins (DAVID) 0.7, Gamma Globulins [...] 83.4 H, Lymph % (Auto) 5.9 L, Niobrara % (Auto) 7.8, Eos % (Auto) 1.0, [...] 83.4 H, Lymph % (Auto) 5.9 L, Niobrara % (Auto) 7.8, Eos % (Auto) 1.0, [...] stable hemodynamically. Charges/Coding Visit Charges Inpatient E&M: 67895 Subs Hosp L2 Documented by User: Dr. [...] notes and documentation Patient to follow-up as dietary services manager Dr. Chandra with the results of the event monitor. To evaluate for permanent pacemaker implant. 01/25/23 1414 <Electronically signed by Rebceca LOZA> Cosigner Signature (if applicable): 01/25/23 1608 <Electronically signed by Lizzeth Riggs MD> CC: ~ Signed [facility] Work Phone: 1(394) 307-823607-14-2023 Progress note Author Ryan Tinoco [facility] January 25, 2023 2:08pm Note Date/Time January 25, 2023 9:30 am [facility] Medical Records Department [address] [place] [address] Progress Note - Hospitalist 01/25/23 0928 MR#: [id number] Acct: [id number] Name: RICHARD ROY Rep #:[id number] : 1945 77 From: Ryan Delgado PCP: Dr. Luis Caldera MD Status :ADM IN Location: [place] [address] Reason for Visit Reason for Visit: Diagnoses [...] 83.4 H, Lymph % (Auto) 5.9 L, Niobrara % (Auto) 7.8, Eos % (Auto) 1.0, [...] Heart rate in 50s.. Discussed with the dietary services manager. No chest pain or tightness. Physical exam [...] is a 77-year-old gentleman being admitted from [facility] for multiple episodes of syncope and [...] the . His medical care is under [facility]. 01/22: Hemoglobin dropped to 8.9. Patient had [...] Albumin (DAVID) 2.5 L, Albumin/Globulin (DAVID) 1.4, Wzsaw-2-Ytiodntmd DAVID 0.2, Ntmvn-0-Kdlmxemdb DAVID 0.6, Beta-Globulins (DAVID) 0.7, Gamma Globulins [...] 83.4 H, Lymph % (Auto) 5.9 L, Niobrara % (Auto) 7.8, Eos % (Auto) 1.0, [...] there was 2 dropped heartbeat in EKG. supervisor microwave shows heart rate slowed down to 48 to 60/min. EKG in the morning about 6 AM today shows sinus rhythm with second- degree Mobitz type II block, RBBB, LAFB bifascicular block. Patient has history of bifascicular block. I talked to the patient's and informed her about the update. Patient has history of ascending aortic aneurysmand had that repaired along with aortic valve in [facility]. His dietary services manager is Dr. Huston in [facility]. I think this is most probably due to start of the octreotide drip as patient was in sinus normal rhythm at time ofadmission. Octreotide discontinued. Nursing Home Physician consulted. 2D echo ordered. 01/23: Echo states EF 55 to 60%, normal LV systolic function. Trivial MR. Mild diffuse aortic valve calcification. Normal left atrium. Plan: Nursing Home Physician will talk to Dr. Chandra regarding assessment for pacemaker 01/24: Patient has hypernatremia and hyperchloremia. IV fluid D5W started. Patient is still has AV block, P waves but rhythm is irregular. Twelve-lead EKGordered. Discussed with the dietary services manager. Dr. Ling will talk to Dr. Chandra. 01/25: For now plan is to monitor. No plan for pacemaker as per the dietary services manager. supervisor microwave shows irregular heartbeat , Mobitz type II. [...] or advanced directive. His is power of contracts attorney for health. After discussion of benefits/risks [...] systolic function Charges/Coding Visit Charges Inpatient E&M: 66143 Subs Hosp L2 01/25/23 1408 <Electronically signed by Ryan Tinoco MD> Cosigner Signature (if applicable): CC: ~ Signed [facility] Work Phone: [phone] Progress note Author Karen Aly [facility] January 24, 2023 8:23pm Note Date/Time January 24, 2023 8:23 pm [facility] Medical Records Department [address] [facility] [place] [address] Progress Note - Hospitalist 01/24/232021 MR#: [id number] Acct: [id number] Name: RICHARD ROY Rep #:[id number] : 1945 77 From: Karen Aly MD PCP: Dr. Luis Caldera MD Status :ADM IN Location: [place] [address] Hospitalist Note Recurrent type II AV block which from notes has been intermittent. He is asymptomatic. Cardiology following and made aware also by RN that it is recurrent. 01/24/232022 <Electronically signed by Karen Aly MD> Cosigner Signature (if applicable): CC: ~ Signed [facility] Work Phone: [phone] Progress note Author Liu Hackett [facility] January 24, 2023 5:07pm Note Date/Time January 24, 2023 5:07 pm [facility] Medical Records Department [address] [place] [address] Progress Note - GI 01/24/231702 MR#: [id number] Acct: [id number] Name: RICHARD ROY Rep #:[id number] : 1945 77 From: Liu Hackett DO PCP: Dr. Luis Caldera MD Status :ADM IN Location: [place] [address] Subjective Subjective Patient laying in bed with [...] 82.8 H, Lymph % (Auto) 5.3 L, Niobrara % (Auto) 8.9, Eos % (Auto) 1.3, [...] ensure healing. Charges/Coding Visit Charges Inpatient E&M: 64711 Subs Hosp L3 01/24/23 1707 <Electronically signed by Liu Friend DO> Cosigner Signature (if applicable): CC: ~ Signed [facility] Work Phone: 1(213) 754-219807-13-2023 Progress note Author Silvestrecarliedebbi Riggs [facility] January 24, 2023 4:25pm Note Date/Time January 24, 2023 1:41 pm [facility] Medical Records Department [address] [place] [address] Progress Note - Cardiology 01/24/23 1338 MR#: [id number] Acct: [id number] Name: RICHARD ROY Rep #:[id number] : 1945 77 From: Rebecca LOZA PCP: Dr. Luis Caldera MD Status :ADM IN Location: [place] [address] Documented by User: DENIA Wilkinson 01/24/23 13:45 [...] 82.8 H, Lymph % (Auto) 5.3 L, Niobrara % (Auto) 8.9, Eos % (Auto) 1.3, [...] 82.8 H, Lymph % (Auto) 5.3 L, Niobrara % (Auto) 8.9, Eos % (Auto) 1.3, [...] by GI. Charges/Coding Visit Charges Inpatient E&M: 58236 Subs Hosp L2 Documented by User: Dr. [...] hemodynamically. 01/24/23 1345 <Electronically signed by Rebecca LOZA PA> Cosigner Signature (if applicable): 01/24/23 1625 <Electronically signed by Lizzeth Riggs MD> CC: ~ Signed [facility] Work Phone: 1([phone]) [phone] Miscellaneous Notes* Telephone Encounter - Tamika Grijalva [...] Patient's calling to say patient was at [facility] for rehabilitation after his hospitalization @ [facility] for confusion on 01/04. He was sent by squad to [facility] from [facility] on 01/21 due to episode of [...] post hospital stay but it won't be [facility]. Vannessa Jorge, JACEY documented in this encounterWayne Hospital07-13-2023 Progress note Author Ryan Tinoco [facility] January 24, 2023 1:11pm Note Date/Time January 24, 2023 8:05 am [facility] Medical Records Department [address] [place] [address] Progress Note - Hospitalist 01/24/23 0758 MR#: [id number] Acct: [id number] Name: RICHARD ROY Rep #:[id number] : [...] Antibody < 0.2, Sm (Martinez) Antibody <0.2, CLERGY MEMBER Antibody <0.2, Scl-70 Scleroderma Ab <0.2, Double [...] 82.8 H, Lymph % (Auto) 5.3 L, Niobrara % (Auto) 8.9, Eos % (Auto) 1.3, [...] waves. Twelve-lead EKG ordered.. Discussed with the dietary services manager. No chest pain or tightness. General: Awake [...] is a 77-year-old gentleman being admitted from [facility] for multiple episodes of syncope and [...] the . His medical care is under [facility]. 01/22: Hemoglobin dropped to 8.9. Patient had [...] there was 2 dropped heartbeat in EKG. supervisor microwave shows heart rate slowed down to 48 to 60/min. EKG in the morning about 6 AM today shows sinus rhythm with second- degree Mobitz type II block, RBBB, LAFB bifascicular block. Patient has history of bifascicular block. I talked to the patient's and informed her about the update. Patient has history of ascending aortic aneurysmand had that repaired along with aortic valve in [facility]. His dietary services manager is Dr. Huston in [facility]. I think this is most probably due to start of the octreotide drip as patient was in sinus normal rhythm at time ofadmission. Octreotide discontinued. Nursing Home Physician consulted. 2D echo ordered. 01/23: Echo states EF 55 to 60%, normal LV systolic function. Trivial MR. Mild diffuse aortic valve calcification. Normal left atrium. Plan: Nursing Home Physician will talk to Dr. Chandra regarding assessment for pacemaker 01/24: Patient has hypernatremia and hyperchloremia. IV fluid D5W started. Patient is still has AV block, P waves but rhythm is irregular. Twelve-lead EKGordered. Discussed with the dietary services manager. Dr. Ling will talk to Dr. Chandra. [...] or advanced directive. His is power of contracts attorney for health. After discussion of benefits/risks [...] systolic function Charges/Coding Visit Charges Inpatient E&M: 91242 Subs Hosp L3 01/24/23 1311 <Electronically signed by Ryan Tinoco MD> Cosigner Signature (if applicable): CC: ~ Signed [facility] Work Phone: [phone]) 947-918907-12-2023 Progress note Author Lizzeth Riggs [facility] January 23, 2023 2:45pm Note Date/Time January 23, 2023 10:0 0am [facility] Medical Records Department [address] [place] [address] Progress Note - Cardiology 01/23/23 0946 MR#: [id number] Acct: [id number] Name: RICHARD ROY Rep #:[id number] : [...] 85.3 H, Lymph % (Auto) 4.8 L, Niobrara % (Auto) 7.1, Eos % (Auto) 0.7, [...] 85.3 H, Lymph % (Auto) 4.8 L, Niobrara % (Auto) 7.1, Eos % (Auto) 0.7, [...] appears stable. Charges/Coding Visit Charges Inpatient E&M: 69576 Subs Hosp L2 01/23/23 1000 <Electronically signed by Reebcca LOZA> Cosigner Signature (if applicable): 01/23/23 1445 <Electronically signed by Lizzeth Riggs MD> CC: ~ Signed [facility] Work Phone: [phone] 196-150207-12-2023 Procedure [facility] 01-23-2023 Procedure [facility]07-12-2023 Progress note Author Ryan Tinoco [facility] January 23, 2023 9:01am Note Date/Time January 23, 2023 9:01 am [facility] Medical Records Department [address] [place] [address] Progress Note - Hospitalist 01/23/23 0852 MR#: [id number] Acct: [id number] Name: RICHARD ROY Rep #:[id number] : [...] 85.3 H, Lymph % (Auto) 4.8 L, Niobrara % (Auto) 7.1, Eos % (Auto) 0.7, [...] every third beat dropped. Discussed with the dietary services manager. No chest pain or tightness. General: Oriented [...] is a 77-year-old gentleman being admitted from [facility] for multiple episodes of syncope and [...] the . His medical care is under [facility]. 01/22: Hemoglobin dropped to 8.9. Patient had [...] there was 2 dropped heartbeat in EKG. supervisor microwave shows heart rate slowed down to 48 to 60/min. EKG in the morning about 6 AM today shows sinus rhythm with second- degree Mobitz type II block, RBBB, LAFB bifascicular block. Patient has history of bifascicular block. I talked to the patient's and informed her about the update. Patient has history of ascending aortic aneurysmand had that repaired along with aortic valve in [facility]. His dietary services manager is Dr. Huston in [facility]. I think this is most probably due to start of the octreotide drip as patient was in sinus normal rhythm at time ofadmission. Octreotide discontinued. Nursing Home Physician consulted. 2D echo ordered. 01/23: Echo states EF 55 to 60%, normal LV systolic function. Trivial MR. Mild diffuse aortic valve calcification. Normal left atrium. Plan: Nursing Home Physician will talk to Dr. Chandra regarding assessment [...] or advanced directive. His is power of contracts attorney for health. After discussion of benefits/risks [...] organ systems), coordination with cardiology and GI toy consultant, review of labs and imaging is 50 minutes. Visit Charges Inpatient E&M: 57827 Subs Hosp L3 01/23/23 0901 <Electronically signed by Ryan Tinoco MD> Cosigner Signature (if applicable): CC: ~ Signed [facility] Work Phone: 1([phone] 205-382307-11-2023 Consult note Author Rebecca Leon [facility] January 22, 2023 4:28pm Note Date/Time January 22, 2023 4:07 pm [facility] Medical Records Department [address] [place] [address] Consultation - Cardiology 01/22/23 1605 MR#: [id number] Acct: [id number] Name: RICHARD ROY Rep #:[id number] : [...] hospital stay he was discharged to a care home facility for rehab. He presented back to the emergency room yesterday for syncope. The nurses at [facility] had noted that he was unresponsive [...] last received his metoprolol while in the [facility] on 01/[facility]/2023. I did speak with , [...] were adjusted at his last hospital stay. [facility] Medical History (Updated 01/22/23 @ 16:25 by [...] Hx of abdominal surgery Social History housing: [facility] current occupational status: retired Smoking Status: Never [...] Charges/Coding Visit Charges Office Visits / Consults: 71731 IP Consult L3 Objective Data Vital Signs: [...] RDW Coeff of Nathaniel 15.5 H, Plt Abfov534, MPV 10.1, Immature Gran % (Auto) 3.300 H, Neut % (Auto) 81.9 H, Lymph % (Auto) 5.9 L, Niobrara % (Auto) 8.0, Eos % (Auto) 0.7, [...] 81.9 H, Lymph % (Auto) 5.9 L, Niobrara % (Auto) 8.0, Eos % (Auto) 0.7,Baso [...] Rhythm: EKG:Second degree AVB type II 01/22/23 1626 <Electronically signed by Rebecca LOZA> Cosigner Signature (if applicable): CC: Dr. Luis Caldera MD; Dr. Lizzeth Riggs MD~ Signed [facility] Work Phone: 1(204) 199-299307-11-2023 Progress note Author Ryan Tinoco [facility] January 22, 2023 8:38am Note Date/Time January 22, 2023 8:22 am [facility] Medical Records Department [address] [place] [address] Progress Note - Hospitalist 01/22/23 0819 MR#: [id number] Acct: [id number] Name: RICHARD ROY Rep #:[id number] : [...] 87.8 H, Lymph % (Auto) 7.5 L, Niobrara % (Auto) 2.4, Eos % (Auto) 0.0, [...] Clarity Clear, Urine pH 5.0, Ur Specific [place] 1.020, Urine Protein 15 H, Urine Glucose [...] RDW Coeff of Nathaniel 15.5 H, Plt Uzrql967, MPV 10.1, Immature Gran % (Auto) 3.300 H, Neut % (Auto) 81.9 H, Lymph % (Auto) 5.9 L, Niobrara % (Auto) 8.0, Eos % (Auto) 0.7, [...] havingirregular heartbeat after midnight, initially 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 After that about 5 AM patient started [...] is a 77-year-old gentleman being admitted from [facility] for multiple episodes of syncope and [...] the . His medical care is under [facility]. 01/22: Hemoglobin dropped to 8.9. Patient had [...] there was 2 dropped heartbeat in EKG. supervisor microwave shows heart rate slowed down to 48 to 60/min. EKG in the morning about 6 AM today shows sinus rhythm with second- degree Mobitz type II block, RBBB, LAFB bifascicular block. Patient has history of bifascicular block. I talked to the patient's and informed her about the update. Patient has history of ascending aortic aneurysmand had that repaired along with aortic valve in [facility]. His dietary services manager is Dr. Huston in [facility]. I think this is most probably due to start of the octreotide drip as patient was in sinus normal rhythm at time ofadmission. Octreotide discontinued. Nursing Home Physician consulted. 2D echo ordered. 3. Essential hypertension [...] or advanced directive. His is power of contracts attorney for health. After discussion of benefits/risks procedures involved with full code, DNR CC arrest and DNR CC, the patient and his opted for full code. Patient does want artificial life support including intubation, tube feed, ventilator and/chest compression, central venous catheter, vasopressor and DC shock if needed Charges/Coding Visit Charges Inpatient E&M: 89924 [facility] Hosp 01/22/23 0838 <Electronically signed by Ryan Tinoco MD> Cosigner Signature (if applicable): CC: ~ Signed [facility] Work Phone: 1([phone]) 628-262407-10-2023 Consult note Author Liu Hackett [facility] January 21, 2023 7:07pm Note Date/Time January 21, 2023 7:04 pm [facility] Medical Records Department [address] [place] [address] Consultation - GI 01/21/23 1902 MR#: [id number] Acct: [id number] Name: RICHARD ROY Rep #:[id number] : 1945 77 From: Liu Hackett DO PCP: Dr. Luis Caldera MD Status :ADM IN Location: ICU CVICU20 2-1 HPI Consult Data Date of Consult: 01/21/23 HPI Narrative Reason for Consultation: GI bleed HPI Narrative: RICHARD ROY, is a 77 M who presents with melena goals from [facility]. He is on warfarin for history of DVT and atrial fibrillation. [facility]. He was admitted between 01/05 to 01/08/23 for confusion and generalized weakness, stroke was ruled out and was sent [facility]. Started getting confused within the past [...] down to 10.9 from 13.1 on discharge. [facility] Medical History Amputation of right great toe [...] Last Taken 01/20/23] warfarin 5 mg tablet (Jultoven) 7.5 mg PO SUTUWETHFRSA anticoagulant 05/22/18 [History [...] Hx of abdominal surgery Social History housing: [facility] current occupational status: retired Smoking Status: Never [...] 87.8 H, Lymph % (Auto) 7.5 L, Niobrara % (Auto) 2.4, Eos % (Auto) 0.0, [...] Clarity Clear, Urine pH 5.0, Ur Specific [place]haw 1.020, Urine Protein 15 H, Urine Glucose [...] 6 hours. Charges/Coding Visit Charges Inpatient E&M: 99562 Init Hosp L3 01/21/231906 <Electronically signed by Liu Friend DO> Cosigner Signature (if applicable): CC: Dr. Luis Caldera MD~ Signed [facility] Work Phone: 1(320) 156-500207-10-2023 Discharge summary Author Dandy Sauer [facility] January 21, 2023 5:25pm Note Date/Time January 21, 2023 9:06 am [facility] Medical Records Department [address] [place] [address] Emergency Department Summary 01/21/23 MR#: [id number] Acct: [id number] Name: RICHARD ROY Rep #:[id number] : 1945 77 From: Dandy Sauer MD PCP: Dr. Luis Caldera MD Status :ADM IN Location: ICU CVICU20 2-1 HPI History of Present Illness Chief Complaint: Syncope Informant: spouse/S.O., EMS and SNF Narrative Narrative: Patient sent from [facility] where he has been for several [...] pain, but he denies it right now. [facility] Medical History Amputation of right great [...] 09:[address] Dandy Sauer MD) housing: [facility] current occupational status: retired Smoking Status: Never [...] place including the state. Downgoing toes bilaterally Collin Coma Scale: document GCS findings To Voice [...] 87.8 H Lymph % (Auto) 7.5 L Niobrara % (Auto) 2.4 Eos % (Auto) 0.0 [...] Management Discussion w/another healthcare provider: Hospitalist and Java Sdet (GI) Critical Care Time Critical Care Time: Yes Critical care time (excluding procedures): 30-74 minutes (33 min), Including time spent:, Discussing w/Patient &/or Family/Bus And Trolley Dispatcher, Discussing w/Consultants, Arranging Admission or Transfer and Performing Direct Patient Care at Bedside Discharge Plan Dx/Rx/DC Orders Clinical Impression: Acute encephalopathy, Syncope, Supratherapeutic INR, ABLA (acute blood loss anemia), Upper gastrointestinal bleeding, Warfarin-induced coagulopathy Disposition Disposition: [facility] Capacity Capacity Assessment Tool Can the [...] your Primary Care Provider. Call [facility] ([phone]) or report to the closest Emergency Room. Call 911 if necessary. 01/21/231724 <Electronically signed by Dandy Sauer MD> Cosigner Signature (if applicable): CC: Dr. Luis Caldera MD ~ Signed [facility] Work Phone: 1(616) 316-494107-10-2023 History and physical note Author Ryan Tinoco [facility] January 21, 2023 12:24pm Note Date/Time January 21, 2023 11:5 8am [facility] Medical Records Department [address] [place] [address] H&P Exam - Hospitalist 01/21/23 1156 MR#: [id number] Acct: [id number] Name: RICHARD ROY Rep #:[id number] : 1945 77 From: Ryan Delgado PCP: Dr. Luis Caldera MD Status :ADM IN Location: ICU CVICU20 2-1 HPI - General General Date of Admission: 01/21/23 Date of Service: 01/21/23 Chief Complaint: Patient was unresponsive in the morning. Had large black tarrystool. HPI Narrative RICHARD ROY, is a 77 M gentleman was brought from [facility] for syncopal episodes and black tarry stool. Prior to that he was admitted between 01/05 to 01/08/23 for confusion and generalized weakness, stroke was ruledout and was sent to [facility] there. Patient is not a good historian. As per the nursing report, patient had multiple short syncopal episodes in the morning after he had a large black tarry stool. Patient had been having dark stool for last couple days in [facility]. Patient does not remember himself from dementia/depression. [...] further admitted in in the context of [facility] Medical History Amputation of right great toe [...] Last Taken 01/20/23] warfarin 5 mg tablet (Jultoven) 7.5 mg PO SUTUWETHFRSA anticoagulant 05/22/18 [History [...] Hx of abdominal surgery Social History housing: [facility] current occupational status: retired Smoking Status: Never [...] 87.8 H, Lymph % (Auto) 7.5 L, Niobrara % (Auto) 2.4, Eos % (Auto) 0.0, [...] Clarity Clear, Urine pH 5.0, Ur Specific Glenshaw 1.020, Urine Protein 15 H, Urine Glucose [...] is a 77-year-old gentleman being admitted from [facility] for multiple episodes of syncope and [...] the . His medical care is under [facility]. 2 Syncopal episode most likely due to [...] or advanced directive. His is power of contracts attorney for health. After discussion of benefits/risks procedures involved with full code, DNR CC arrest and DNR CC, the patient and his opted for full code. Patient does want artificial life support including intubation, tube feed, ventilator and/chest compression, central venous catheter, vasopressor and DC shock if needed Total time spent in [id number] encounter in discussion of advanced directive 17 [...] 87.8 H, Lymph % (Auto) 7.5 L, [place]ara % (Auto) 2.4, Eos % (Auto) 0.0, [...] Clarity Clear, Urine pH 5.0, Ur Specific Glenshaw 1.020, Urine Protein 15 H, Urine Glucose (UA) 100 H, Urine Ketones 15 H, Urine Occult Blood Negative, Urine Nitrite Negative, Urine Bilirubin 1 H, Urine Urobilinogen Normal, Ur Leukocyte Esterase Negative, Urine RBC 0 SEEN, Urine WBC 0-5 SEEN, Ur Squamous Epith Cells 0-5 SEEN, Urine Bacteria 0 SEEN, Urine Mucus 0 SEEN Charges/Coding Visit Charges Inpatient E&M: 76870 Init Hosp L3 Procedures Hospitalists Procedures: 92058 Advncd Care Plan 30 Min 01/21/233 <Electronically [...] applicable): cc: Dr. Luis Caldera MD; Dr. Rayn Tinoco MD ~* Signed [facility] Work Phone: 1(928) 740-451706-23-2023 Miscellaneous Notes* Telephone Encounter - Amada Cohn [...] again recommend ER evaluation. documented in this encounterWayne [facility]06-[facility]-2023 Miscellaneous Notes* Telephone Encounter - Tamika [...] 01/04. Vannessa Jorge, RN documented in this encounterWayne Hospital06-22-2023 History of Present illness Narrative* Justina Escoto, PT - 01/03/2023 12:54 PM EDT Episode Visit Count: 10 Therapist That Will Accept/Oversee The Plan Of Care: Justina Escoto Start of Care Date: 11/29/22 Onset Date: 09/29/22 Plan of Care Certification Date: 11/29/22 Next Certification Due Date: 01/03/23 [facility]AB[facility] PHYSICAL THERAPY DISCONTINUANCE OF CARE PLAN OF CARE UPDATE: Assessment: Richard Ryo is discontinued from Physical Therapy services due to Patient/Clinicianmutual decision to discontinue current plan of care.. Patient was seen for 10 visits from Start of Care Date: 11/29/22 to 01/03/2023 and treatment included: Therapeutic exercise, Neuromuscular re-education, Therapeutic activities, Self-mcfp management, and Gait training. Goals for Episode [...] PARTIALLY MET, improved 8 to 9 reps [place] in home exercise program including cardiovascular exercise. [...] 5 Justina Escoto PT documented in this encounterWayne Hospital06-19-2023 History of Present illness Narrative* Justina [...] Treatment Time Minutes (timed/untimed): 42 Ira Ramos, BRICKMASON Justina Escoto PT documented in this encounterWayne Hospital06-15-2023 History of Present illness Narrative* Justina [...] Treatment Time Minutes (timed/untimed): 40 Ira Ramos, BRICKMASON Justina Escoto PT documented in this encounterWayne Hospital06-12-2023 History of Present illness Narrative* Justina [...] 40 Justina Escoto PT documented in this encounterWayne Hospital06-05-2023 History of Present illness Narrative* Justina [...] 40 Justina Escoto PT documented in this encounterWayne Hospital06-02-2023 History of Present illness Narrative* Justina [...] 40 Justina Escoto PT documented in this encounterWayne Hospital05-31-2023 History of Present illness Narrative* Justina [...] 40 Justina Escoto PT documented in this encounterWayne Hospital05-09-2023 Miscellaneous Notes* Telephone Encounter - GABI Link - 11/20/2022 9:19 AM EDT [facility] 11/19/22 Appointment scheduled 02/05/23 Please advise. Thank [...] to the pharmacy. Please call patient at: [phone]. Nola Castro Pss documented in this encounterWayne Hospital05-08-2023 Miscellaneous Notes* Telephone Encounter - Tania [...] Current INR: 3.2 Current dose: 10 mg Sat and Sat and 7.5 mg all other days Last INR: PT INR 2.5 10/22/2022 Current dose of coumadin is: 10mg M & W, 7.5mg all other days. Last date of dose change: unknown. Previous INR (date and result): 09/24/2022 2.5 documented in this encounterWayne Hospital04-10-2023 History of Present illness Narrative* Zachary [...] Patient, Diabetic Foot Care documented in this encounterWayne Hospital04-10-2023 Instructions* Patient Instructions* Zachary Obregon - [...] (or decreased sensation in your feet) a supervisor commercial fish hatchery should always cut your toenails. Be Careful [...] Go to your health care provider or supervisor commercial [employer] to treat these conditions. documented in this encounterWayne Hospital03-14-2023 Miscellaneous Notes* Telephone Encounter - Rebecca [...] Information or narrative: no documented in this encounterWayne Hospital02-24-2023 Miscellaneous Notes* Telephone Encounter - Suzanne Connelly RN - 09/07/2022 1:11 PM EST Call to patient. Provided number to schedule- [phone]. Offered to transfer patient to schedulebut patient declined to schedule stating he could call later. PAOLA Potter, RN September 07, 2022 1:11 PM * Telephone Encounter - Jojo Kaur MD - 09/07/2022 11:39 AM EST Suzanne please let patient know how to proceed with driving evaluation I already put the order in computer documented in this encounterWayne Hospital02-24-2023 History of Present illness Narrative* Jojo [...] folllow up after hospitalization in [facility]. he was admitted because of syncopal [...] with long-term current use of insulin([facility]) 06/20/2016 Vitamin D deficiency 01/03/2022 PSH: PAST SURGICAL HISTORY Procedure Laterality Date ABDOMINAL SURGERY HX AMPUTATION METATARSAL+TOE,SINGLE Right 05/25/2018 with delayed closure on 05/28/18. Dr. Obregon at [facility] COLONOSCOPY 10/10/2021 repeat in 3 years [...] Wide based gait ,unsteady Cannot tandem Jojo Vincent, M.D. [facility] [place] Department of Neurology Total time in minutes [...] lights on at night. documented in this encounterWayne Hospital02-14-2023 Miscellaneous Notes* Telephone Encounter - Tamika [...] no Tania Heller LPN documented in this encounterWayne Hospital02-02-2023 Miscellaneous Notes* Telephone Encounter - Grecia [...] notify patient. Grecia Bustillo documented in this encounterWayne Hospital01-31-2023 Miscellaneous Notes* Telephone Encounter - Tamika [...] Information or narrative: no documented in this encounterWayne Hospital01-26-2023 History of Present illness Narrative* Abdulaziz [...] 12 months ago. Going to schedule appointment [facility]. 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 Asymtpomatic still on medical management. Has completed his home PT/OT. Echo and stress test at [facility] were negative/normal. Has follow up with Dr. Huston on 12/03. questioning if they should be seen sooner. BP well controlled with current regimen <130/80. BPH: With use of flomax, patient is getting up once at night to urinate. Has weak stream, but denies straining, incomplete emptying, dysuria, hematuria, incontinence. Followed up with ENT in [place] for chronic frontal sinusitis on CT/MRI going [...] delayed closure on 05/28/18. Dr. Obregon at [facility] COLONOSCOPY 10/10/2021 repeat in 3 years [...] by mouth once daily. blood sugar diagnostic (Maaguzi ULTRA TEST) test strip Test blood sugar(s) [...] Abs Lymph 1.00 - 4.00 k/uL 1.81 Niobrara% % 6.9 Abs Niobrara <0.87 k/uL 0.86 Eosin% % 3.1 Abs [...] long-term current use of insulin ([facility]) -ICD9: 250.60, 357.2, V58.67, ICD10: E11.40, Z79.4 (primary diagnosis) improved control - Continue current medications - Blood glucose monitoring on a four times a day schedule - Encouraged regular aerobic exercise and weight loss - Follow up in 6 months, sooner should any other issues arise. - Discussed diabetic education issues of long term care phlebotomist diabetic complications, hypoglycemic symptoms, hyperglycemic symptoms, diet, [...] with type 2 diabetes mellitus ([facility]) - ICD9: 250.60, 357.2, ICD10: E11.42 Controlled on current regimen. 3. NSTEMI (non-ST elevated myocardial infarction) ([facility]) - ICD9: 410.70, ICD10: I21.4 Patient [...] reigmen. Abdulaziz Caldera MD documented in this encounterWayne Hospital01-23-2023 Miscellaneous Notes* Telephone Encounter - Tamika [...] pt. Mila Castro LPN documented in this encounterWayne Hospital01-23-2023 History of Present illness Narrative* Zachary [...] or electronic medical record. documented in this encounterWayne Hospital01-17-2023 Miscellaneous Notes* Telephone Encounter - Melba [...] 2022. Rebecca Esteban LPN documented in this encounterWayne Hospital01-13-2023 Miscellaneous Notes* Telephone Encounter - Meghana Burgess - 07/27/2022 9:55 AM EST [employer] message not read as of 07/27/2022. Called and spoke with patient. Appt rescheduled to 09/07/2022 at 11:00 AM Meghana Burgess * Telephone Encounter - Meghana Burgess - 07/05/2022 4:08 PM EST Due to change in provider's schedule, appt on 08/21/2022 needs rescheduled. Patient notified via [employer] message on 07/05/2022. Meghana Burgess documented in this encounterWayne Hospital01-12-2023 Miscellaneous Notes* Telephone Encounter - Abdulaziz Caldera MD - 07/26/2022 3:09 PM EST Thanks. * Telephone Encounter - Ann Castillo RN - 07/26/2022 3:04 PM EST Darlyn, a nurse with [facility] calling to state she has discharged pt from care home today. Pt is doing really well. No call back needed. Thank you. documented in this encounterWayne Hospital01-11-2023 Miscellaneous Notes* Telephone Encounter - Suzanne Lino RN - 07/25/2022 1:42 PM EST Last Office Visit: 07/12/2022 Future Office Visit: 08/09/2022 Requested Prescriptions Pending Prescriptions Disp Refills amLODIPine (NORVASC) 2.5 mg tablet 30 tablet 5 Sig: Take 1 tablet by mouth once daily. Date of Last Labs: 03/02/2022 documented in this encounterWayne Hospital01-03-2023 Miscellaneous Notes* Telephone Encounter - Abdulaziz Caldera MD - 07/17/2022 12:58 PM EST Reviewed and agree. * Telephone Encounter - Halima Diaz RN - 07/17/2022 12:51 PM EST Maverick PT calling from [facility] to report plan of care for patient and PT will visit patient 2 times a week for 3 weeks. PT will work with patient on functional mobility training. Halima Diaz RN documented in this encounterWayne Hospital01-03-2023 Miscellaneous Notes* Telephone Encounter - Abdulaziz Caldera MD - 07/17/2022 11:18 AM EST Reviewed. * Telephone Encounter - Eva Schmid LPN - 07/17/2022 11:12 AM EST Barbi from [facility] calling with OT plan of care, one time visit only, patient denies any further OT needs. No call back needed. documented in this encounterWayne Hospital12-30-2022 Miscellaneous Notes* Telephone Encounter - Ewa Andino Ma - 07/13/2022 11:30 AM EST Left detailed message on confidential line Ewa Andino Ma * Telephone Encounter - Abdulaziz Caldera MD - 07/13/2022 11:01 AM EST agree * Telephone Encounter - Ann Castillo RN - 07/13/2022 10:00 AM EST Chiki, a nurse with [facility] calling with [facility] Plan of Care for patient: Patient will be seen 1 time per week for 4 weeks for BP monitoring. No call back needed if provider agreeable. Thank you. documented in this encounterWayne Hospital12-29-2022 Miscellaneous Notes* Telephone Encounter - Ewa Andino Ma - 07/12/2022 10:53 AM EST Karly was notified Ewa Andino Ma * Telephone Encounter - Abdulaziz Caldera MD - 07/12/2022 10:47 AM EST Agree and will follow * Telephone Encounter - Marcella Alvarez RN - 07/12/2022 10:07 AM EST Karly with [facility] called and reports Pt was discharged yesterday and they received a referral for PT/OT/SN. They are going to do their start of care tomorrow, and she was asking if the provider would be willing to follow. documented in this [facility]12-26-[facility] Miscellaneous Notes* Telephone Encounter - Suzanne Lino RN - 07/09/2022 11:46 AM EST Last Office Visit: 04/16/2022 Future Office Visit: 09/17/2022 Requested Prescriptions Pending Prescriptions Disp Refills dulaglutide (TRULICITY) 1.5 mg/0.5 mL pen injector 12 Each 3 Sig: Inject 1.5 mg subcutaneously one time a week. Inject once per week. Discard Pen After Date of Last Labs: 03/02/2022 documented in this encounterWayne Hospital12-12-2022 Miscellaneous Notes* Telephone Encounter - Tania [...] patient. Tania Heller LPN documented in this [facility]11-02[facility] Miscellaneous Notes* Telephone Encounter - Mila Castro [...] you. Mila Castro LPN documented in this encounterWayne Hospital10-04-2022 History of Present illness Narrative* Jojo [...] folllow up after hospitalization in [facility]. 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 Dr. Obregon at [facility] COLONOSCOPY 10/10/2021 repeat in 3 years [...] week. Discard Pen After blood sugar diagnostic (Sensorberg GmbHTOUCH ULTRA TEST) test strip Test blood sugar(s) [...] gait ,unsteady Cannot tandem Jojo Kaur M.D. [facility] [place] Department of Neurology Total time in minutes [...] lights on at night. documented in this encounterWayne Hospital10-04-2022 Miscellaneous Notes* Telephone Encounter - Abdulaziz Caldera MD - 04/17/2022 11:24 AM EDT Reviewed. * Telephone Encounter - MERYL Zamudio - 04/17/2022 11:03 AM EDT Behavioral Health Social Work Progress Note Patient identified for [facility] from: PCP Reason for referral: Resources Behavioral Health Resources: Psychology - talk therapy [facility] encounter type: Telephone Encounter Attempts to Outreach: 1 attempt Referral made: Psychology - External Psychology-External referral type: Therapy Reason for external referral: Wait times at [facility] too long Final Disposition: Resources given Patient Discharged?: Yes Patient reported that caregiver was able to meet their needs today?: Yes SW placed a phone call to patient at the request of the PCP. Pt reported he is looking for talk therapy referrals at this time. SW provided the following referrals via phone: [facility] [address], [facility] [address] *[facility] [place] [address] [place] [address] *counseling [facility] [address], [address] [place] [address] *counseling [facility] [address] [place] [address] FEDERICO Zamudio April 17, 2022 documented in this encounterWayne Hospital10-03-2022 History of Present illness Narrative* Abdulaziz [...] Diabetes mellitus with neurological manifestation ([facility]) 09/08/2010 Diabetic retinopathy of right eye ([facility]) mild Diverticulosis of colon (without mention of hemorrhage) Encounter for monitoring Coumadin therapy 09/23/2013 INR goal 2.5-3.5 Essential hypertension, benign 10/28/2012 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 ([facility]) 05/25/2018 History of transfusion Hyperlipidemia LDL goal < 100 04/01/2012 Pulmonary embolus, right ([facility]) 09/25/2013 Status post aortic valve repair 2005 Thoracic aneurysm without mention of rupture Type 2 diabetes mellitus with stage 3 chronic kidney disease, with long-term current use of insulin([facility]) 06/20/2016 Vitamin D deficiency 01/03/2022 Previous Surgical History PAST SURGICAL HISTORY Procedure Laterality Date ABDOMINAL SURGERY HX AMPUTATION METATARSAL+TOE,SINGLE Right 05/25/2018 with delayed closure on 05/28/18. Dr. Obregon at [facility] COLONOSCOPY 10/10/2021 repeat in 3 years [...] Abs Lymph 1.00 - 4.00 k/uL 1.81 Niobrara% % 6.9 Abs [place] <0.87 k/uL 0.86 Eosin% % 3.1 Abs [...] diabetic education issues of long term care phlebotomist diabetic complications, hypoglycemic symptoms, hyperglycemic symptoms, diet, [...] regimen. 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, macular edema presence unspecified ([facility]) Essential hypertension, benign Hyperlipidemia with target LDL less than 100 Other and unspecified hyperlipidemia Mild depression Depressive disorder, not elsewhere classified BPH without urinary obstruction Hypertrophy of prostate without urinary obstruction and other lower urinary tract symptoms (LUTS) documented in this encounter [facility]09[facility] History of Present illness Narrative* Roselia Madrigal, TELEVISION PRODUCTION CLERK.MANAGER CREATIVE - 04/06/2022 9:40 AM EDT 04/06/2022 Patient [...] with long-term current use of insulin([facility]) 06/20/2016 Vitamin D deficiency 01/03/2022 ALLERGIES [...] ONCE DAILY. FOR CHOLESTEROL. blood sugar diagnostic (Sensorberg GmbHTOUCH ULTRA TEST) test strip Test blood sugar(s) [...] SEASONAL QUADRIVALENT HIGH DOSE AGE 65+ - [employer] COVID-19 BIVALENT BOOSTER VACCINE, AGE 12+ YR 3. Mild depression - ICD9: 311, ICD10: F32.A - discussed antidepressant - patient declines- he reports he does not feel depressed - encouraged marriage counseling as seems to be unhappy about his lack of motivation Roselia Podlogar, TELEVISION PRODUCTION CLERK.MANAGER CREATIVE Prescription instructions reviewed with patient as applicable. [...] which included preparing to see the patient, [id number] patient care, completing clinical documentation, obtaining and/or reviewing separately obtained history, performing a medically appropriate examination, and counseling and educating the patient/family/caregiver. documented in this encounterWayne Hospital09-21-2022 Miscellaneous Notes* Telephone Encounter - Valencia [...] EDT ----- Please forward INR to doctor risk control director Roselia Podlogar, TELEVISION PRODUCTION CLERK.MANAGER CREATIVE documented in this encounterWayne Hospital09-16-2022 History of Present illness Narrative* Zachary [...] Care Merlene Martinez LPN documented in this encounterWayne Hospital09-16-2022 Instructions* Patient Instructions* Zachary Obregon - [...] (or decreased sensation in your feet) a supervisor commercial fish [employer]chery should always cut your toenails. Be Careful [...] Go to your health care provider or supervisor commercial [employer] to treat these conditions. documented in this encounterWayne Hospital09-09-2022 History of Present illness Narrative* David [...] 01/12/22 through 03/15/22 Goals updated on 03/23/2022. [place] in home exercise program. (Met) Patient will [...] 42 David Poon PT documented in this encounterWayne Hospital09-08-2022 Miscellaneous Notes* Telephone Encounter - Maggy Lockhart - 03/22/2022 1:49 PM EDT Pharmacy verified in [facility] Patient has been identified by [...] advise. Maggy Ibarra Pss documented in this encounterWayne Hospital09-02-2022 History of Present illness Narrative* David [...] Total Treatment Time Minutes (timed/untimed): 40 Karen ALISIA Weber PT documented in this encounterWayne Hospital08-29-2022 History of Present illness Narrative* David [...] Total Treatment Time Minutes (timed/untimed): 41 Karen Weber BRICKMASON David Poon PT documented in this encounterWayne Hospital08-26-2022 Miscellaneous Notes* Addendum Note - David Poon PT - 03/09/2022 1:18 PM EDTAddended by: DAVID POON on: 03/09/2022 01:18 PM Modules accepted: Orders documented in this encounterWayne Hospital08-26-2022 History of Present illness Narrative* David [...] 01/12/22 through 03/15/22 Goals updated on 03/09/2022. [place] in home exercise program. (Met) Patient will [...] Patient to be seen for Therapeutic exercise (34929);Neuromuscular re-education (99345);Gait Training (58917);Patient/Family/Caregiver Education PLAN FOR NEXT VISIT: Add bridging [...] 42 David Poon PT documented in this encounterWayne Hospital08-24-2022 Miscellaneous Notes* Telephone Encounter - Amada Cohn Ga - 03/07/2022 2:35 PM EDT Pt notified [...] testing [place] Ma Cma documented in this encounterWayne Hospital08-24-2022 Instructions* Patient Instructions* Abdulaziz Caldera MD - 03/07/2022 11:45 AM EDT Please take 2,000 units of vitamin D daily over the counter. documented in this encounterWayne Hospital08-24-2022 History of Present illness Narrative* Abdulaziz Caldera MD - 03/07/2022 11:19 AM EDT Chief Complaint Patient presents with: 6 Month Exam ER F/U HPI Richard Roy is a 76 year old male who presents here today for ER Follow Up.. 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 ([facility]) 05/25/2018 History of transfusion Hyperlipidemia LDL goal < 100 04/01/2012 Pulmonary embolus, right ([facility]) 09/25/2013 Status post aortic valve repair 2005 Thoracic aneurysm without mention of rupture Type 2 diabetes mellitus with stage 3 chronic kidney disease, with long-term current use of insulin([facility]) 06/20/2016 Vitamin D deficiency 01/03/2022 Previous Surgical History PAST SURGICAL HISTORY Procedure Laterality Date ABDOMINAL SURGERY HX AMPUTATION METATARSAL+TOE,SINGLE Right 05/25/2018 with delayed closure on 05/28/18. Dr. Obregon at [facility] COLONOSCOPY 10/10/2021 repeat in 3 years [...] ONCE DAILY. FOR CHOLESTEROL. blood sugar diagnostic (Maaguzi ULTRA TEST) test strip Test blood sugar(s) [...] Abs Lymph 1.00 - 4.00 k/uL 1.81 [place]% % 6.9 Abs [place] <0.87 k/uL 0.86 Eosin% % 3.1 Abs [...] PANEL Abdulaziz Caldera MD documented in this encounterWayne Hospital08-22-2022 History of Present illness Narrative* David [...] 40 David Poon PT documented in this encounterWayne Hospital08-19-2022 History of Present illness Narrative* David [...] 45 David Poon PT documented in this encounterWayne Hospital08-15-2022 History of Present illness Narrative* David [...] 45 David Poon PT documented in this encounterWayne Hospital08-12-2022 History of Present illness Narrative* David [...] 43 ALISIA Whiting PT documented in this encounterWayne Hospital08-03-2022 History of Present illness Narrative* David [...] 47 David Poon PT documented in this encounterWayne Hospital07-29-2022 History of Present illness Narrative* David Poon PT - 02/09/2022 10:38 AM EDT Episode Visit Count: 7 Therapist That Will Oversee The Plan Of Care: Pjsameera David Start of Care Date: 01/12/22 Onset Date: [...] 01/12/22 through 03/15/22 Goals updated on 02/09/2022. [place] in home exercise program. (Met) Patient will [...] Patient to be seen for Therapeutic exercise (33405);Neuromuscular re-education (42592);Gait Training (39197);Patient/Family/Caregiver Education PLAN FOR NEXT VISIT: Continue to [...] 44 David Poon PT documented in this encounterWayne Hospital07-26-2022 Miscellaneous Notes* Telephone Encounter - Nola [...] patient. Nola Castro Pss documented in this encounterWayne Hospital07-22-2022 History of Present illness Narrative* Cortney [...] 43 ALISIA Whiting PT documented in this encounterWayne Hospital07-21-2022 Miscellaneous Notes* Telephone Encounter - Mila [...] pharmacy. No need to notify patient. Eulalia Gamalielmallika [facility] documented in this encounterWayne Hospital07-19-2022 History of Present illness Narrative* Justina [...] 43 ALISIA Whiting PT documented in this encounterWayne Hospital07-12-2022 Miscellaneous Notes* Telephone Encounter - Rebecca [...] you. Rebecca Gonzales RN documented in this encounterWayne Hospital07-12-2022 History of Present illness Narrative* Chiki Carson, [...] 45 ALISIA Whiting PT documented in this encounterWayne Hospital07-08-2022 Miscellaneous Notes* Telephone Encounter - Maggy [...] 02/02/22 for neurology. * Telephone Encounter - Tmaika Grijalva LPN - 01/18/2022 3:55 PM EDT [...] on driving. Please advise. documented in this encounterWayne Hospital07-01-2022 History of Present illness Narrative* David [...] of Care: created on 01/12/22 through 03/15/22 [place] in home exercise program. Patient will demonstrate [...] Planned: 16 Planned Treatment Interventions: Therapeutic exercise (00335);Neuromuscular re- education (75477);Gait Training (60238);Patient/Family/Caregiver Education PLAN FOR NEXT VISIT: Review HEP [...] 42 David Poon PT documented in this encounterWayne Hospital07-01-2022 Miscellaneous Notes* Telephone Encounter - Ewa [...] Pending consult. Please advise documented in this encounterWayne Hospital06-29-2022 Miscellaneous Notes* Telephone Encounter - Mila [...] his syncope/collapse. Thank you! documented in this encounterWayne Hospital06-29-2022 Miscellaneous Notes* Result QuickNote - Justina Monique APRN.CNP - 01/10/2022 11:33 AM EDT Please call patient and notify him. Echocardiogram is stable. Valve replacement function is stable.No cardiac structure/function changes to explain his syncope/collapse. Thank you! documented in this encounterWayne Hospital06-24-2022 History of Present illness Narrative* Jojo [...] PHYSICIAN: Abdulaziz Caldera [address] [facility] [id number] Accompanied by: Spouse ASSESSMENT: 76 year old [...] folllow up after hospitalization in [facility]. he was admitted because of syncopal [...] delayed closure on 05/28/18. Dr. Obregon at [facility] COLONOSCOPY 10/10/2021 repeat in 3 years [...] by mouth once daily. blood sugar diagnostic (Maaguzi ULTRA TEST) test strip Test blood sugar(s) [...] gait ,unsteady Cannot tandem Jojo Kaur M.D. [facility] [place] Department of Neurology January 05, 2022 Total [...] lights on at night. documented in this encounterWayne Hospital06-21-2022 Miscellaneous Notes* Telephone Encounter - Justina Garcia LPN - 01/02/2022 8:06 AM EDT I spoke to and informed him of Justina's response to lipid panel results. Patient voiced understanding. Justina Garcia LPN * Telephone Encounter - Justina Garcia LPN - 01/02/2022 7:43 AM EDT ----- Message from Justina Monique APRN.MANAGER CREATIVE sent at 01/02/2022 7:38 AM EDT ----- Please call patient and notify him cholesterol has good control. Thank you! documented in this encounterWayne Hospital06-20-2022 History of Present illness Narrative* Abdluaziz Caldera MD - 01/01/2022 10:20 AM EDT Chief Complaint Patient presents with: Hospital Follow Up: [facility] discharged 12/29/21 HPI Richard Roy is a 76 year old male who presents here today for Hospital Discharge Follow up. Accompanied today by his . Patient admitted to [facility] from 12/27 to 12/29 after presenting to the [facility] ED after being found slumped over his tractor at home earlier in the afteernoon. Had been working outside for unknown period of time. Had only eaten cookies and milk that day. Heat index over 100. Back to baseline at the time of evaluation by hospitalist at [facility]. Found to have leukocytosis at [facility] and elevated lactic acid level. Noted [...] echo since it was not completed at [facility]. No other changes to regimen. Patient [...] delayed closure on 05/28/18. Dr. Obregon at [facility] COLONOSCOPY 10/10/2021 repeat in 3 years [...] by mouth once daily. blood sugar diagnostic (BlackLight PowerUCH ULTRA TEST) test strip Test blood sugar(s) [...] SCRN Abdulaziz Caldera MD documented in this encounterWayne Hospital06-20-2022 Instructions* Patient Instructions* Justina Monique APRN.MANAGER CREATIVE - 01/01/2022 9:05 AM EDT High Blood [...] risk for high blood pressure. Developed by [employer] Published by [employer] Copyright 2014 [employer] and/or one of its subsidiaries. All rights reserved. documented in this encounterWayne Hospital06-20-2022 History of Present illness Narrative* Justina [...] bothexplain to me he was hospitalized at [facility] for 2 days last week for [...] LE swelling. Records have been requested from [facility]. He is unsure of what testing was completed. An echocardiogram was ordered at his last office visit with me.If this was not completed at [facility], I recommend this be completed for [...] 100 04/01/2012 Pulmonary embolus, right ([facility]) 09/25/2013 Status post aortic valve repair 2004 Thoracic aneurysm without mention of rupture Type 2 diabetes mellitus with stage 3 chronic kidney disease, with long-term current use of insulin([facility]) 06/20/2016 PAST SURGICAL HISTORY Procedure Laterality Date ABDOMINAL SURGERY HX AMPUTATION METATARSAL+TOE,SINGLE Right 05/25/2018 with delayed closure on 05/28/18. Dr. Obregon at [facility] COLONOSCOPY 10/10/2021 repeat in 3 years [...] injection (DEFINITY) INTRAVENOUS DIRECTED PRN Justina Monique APRN.MANAGER CREATIVE sodium chloride 0.9 % (flush) 10 mL (BD POSIFLUSH) 10 mL INTRAVENOUS DIRECTED PRN Justina Monique APRN.MANAGER CREATIVE Review of Systems Constitutional: Negative for chills, [...] MRI of his head CAD -MILD on [facility] 2004 -stress testing 2013 with [...] from today Electronically signed by Justina Monique APRN.MANAGER CREATIVE on January 01, 2022, 8:57 AM documented in this encounterWayne Hospital06-19-2022 Note. MICRO - Microbiology PROCEDURE: Blood Culture (bacterial) [*1] SOURCE: Blood BODY SITE: COLLECTED DATE/TIME: 12/27/2021 17:43 EDT RECEIVED DATE/TIME: 12/28/2021 14:37 EDT START DATE/TIME: 12/28/2021 14:37 EDT FREE TEXT SOURCE: FINAL REPORTS Final Report [] Verified Date/Time/Personnel: 12/31/2021 07:29 EDT Staphylococcus epidermidis Isolated from anaerobe bottle only. Refer to previous culture for susceptibility. [id number] PRELIMINARY REPORTS Preliminary Report [] Verified Date/Time/Personnel: 12/30/2021 09:39 EDT Staphylococcus epidermidis Isolated from anaerobe bottle only. Refer to previous culture for susceptibility. [id number] Preliminary Report [] Verified Date/Time/Personnel: 12/28/2021 15:59 EDT Culture has been received in lab and is no growth to date. Routine cultures are held for 5 days. STAINS GSANA [] Verified Date/Time/Personnel: 12/29/2021 14:08 EDT Gram Positive Cocci in clusters Performing Locations *1: This test was performed at: [address], [facility] , [facility] ([place])12-31-2021 Note. MICRO - Microbiology PROCEDURE: Blood Culture [...] Locations *1: This test was performed at: [facility], [address] [place] [address], [id number] , [facility] ([place])12-27-2021 SARS-CoV-2 (COVID-19) RNA ANGELY+probe Ql (Nph)Positive 2 *ABN* (12/27/21 5:43 PM)AO Auto Urine SSComment on above:Result Comment: positive covid cvrb s. tona Evaluation + Plan note Diagnostic Tests Pending * Urinalysis 12/27/21 * Blood Culture (bacterial) 12/27/21 * Blood Culture (bacterial) 12/27/21 [facility] 06-02-2022 History of Present illness Narrative* Abdulaziz Caldera MD - 12/14/2021 3:13 PM EDT Chief Complaint Patient presents with: Covid Follow Up HPI Richard Roy is a 76 year old male who presents here today for Above Complaints.. Patient positive for COVID in the [facility] ER last week on 12/06. 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 Dr. Obregon at [facility] COLONOSCOPY 10/10/2021 repeat in 3 years [...] by mouth once daily. blood sugar diagnostic (Sensorberg GmbHTOUCH ULTRA TEST) test strip Test blood sugar(s) [...] detail. Abdulaziz Caldera MD documented in this encounterWayne Hospital05-27-2022 History of Present illness Narrative* Abdulaziz [...] today for Above Complaints.. Patient evaluated at [facility] ER on 12/06 for complaint of generalized weakness, cough, and feeling off balance and developed cough which started on 12/04. Denied other COVID symptoms at that time. Lab workup in the ER was unremarkable aside from positive COVID test and INR of 3.3. UA unremarkable. CXR showed some ill defined densities in RLL which was likely 2/2 COVID infection. Spencer to be well enough and discharged home [...] delayed closure on 05/28/18. Dr. Obregon at [facility] COLONOSCOPY 10/10/2021 repeat in 3 years [...] by mouth once daily. blood sugar diagnostic (BlackLight PowerUCH ULTRA TEST) test strip Test blood sugar(s) [...] these interactions. Not interested in driving to [facility] for IV ab. Since his symptoms are mild, he would prefer to rest at home. Discussed risks and benefits of treatment and that he is high risk for severe infection. Red flags for re-assessment reviewed with patient in detail. I spent a total of 25 minutes on the date of the service which included preparing to see the patient, [id number] patient care, completing clinical documentation, obtaining and/or reviewing separately obtained history, performing a medically appropriate examination, counseling and educating the pat ient/family/caregiver and ordering medications, tests, or procedures. Abdulaziz Caldera MD documented in this encounterWayne Hospital05-27-2022 Miscellaneous Notes* Telephone Encounter - Abdulaziz [...] with one of our providers or with [facility] online. * Telephone Encounter - David Martinez Pss - 12/08/2021 2:16 PM EDT Patient called stating he was at [facility] ER on 12/06. Tested positive for covid. Patient was informed tocontact the office within 5 days to inform. Please advise patient when he can be seen in office. documented in this encounterWayne Hospital05-09-2022 Miscellaneous Notes* Telephone Encounter - Eulalia Pedroza [...] to pharmacy. No need to notify patient. [facility] documented in this encounterWayne Hospital04-11-2022 Instructions* Patient Instructions* Marcella Park PA-C - 10/23/2021 1:25 PM EDT -Recommend daily fiber supplement and plenty of fluids The following instructions are important for you related to your office visit today with the [facility] General Surgeons. INSTRUCTIONS FOR DIVERTICULA I [...] you should contact our office immediately @ [phone] and ask to be transferred to the General Surgery department. The following instructions are important for you related to your office visit today with the [facility] General Surgeons. INSTRUCTIONS FOLLOWING A POLYP [...] you should contact our office immediately @ [phone] and ask to be transferred to the General Surgery department. documented in this encounterWayne Hospital04-11-2022 History of Present illness Narrative* Marcella Park PA-C - 10/23/2021 1:09 PM EDT FOLLOW UP VISIT - ENDOSCOPY NAME: Richard Bonilla [facility] NO.: [id number] DATE OF SERVICE: 10/23/2021 : 1945 REFERRING [...] which included preparing to see the patient, [id number] patient care, completing clinical documentation, obtaining and/or reviewing separately obtained history, counseling and educating the patient/family/caregiver, communicating with other HCPs (not separately reported), independently interpreting results (not separately reported) and communicating results to the patient/family/caregiver. Marcella Park PA-C documented in this encounterWayne Hospital03-29-2022 Nurse Note* Caroline Larkin RN - [...] answered. Caroline Larkin RN documented in this encounterWayne Hospital03-29-2022 History and physical note * Richard [...] were not included. HISTORY AND PHYSICAL Richard Regant 1945 REFERRING PHYSICIAN: Abdulaziz Caldera,* CHIEF COMPLAINT: [...] first toe of right foot ([facility]) 05/25/2018 Hyperlipidemia LDL goal < 100 04/01/2012 Pulmonary embolus, right ([facility]) 09/25/2013 Status post aortic valve repair 2004 Thoracic aneurysm without mention of rupture Type 2 diabetes mellitus with stage 3 chronic kidney disease, with long-term current use of insulin([facility]) 06/20/2016 PAST SURGICAL HISTORY PAST SURGICAL HISTORY Procedure Laterality Date AMPUTATION METATARSAL+TOE,SINGLE Right 05/25/2018 with delayed closure on 05/28/18. Dr. Obregon at [facility] COLONOSCOPY FLX DX W/COLLJ SPEC WHEN [...] by mouth once daily. blood sugar diagnostic (Maaguzi ULTRA TEST) test strip Test blood sugar(s) [...] patient was offered a surgery/procedure at a [facility] facility. I have counseled the patient regarding [...] diagnosis) Marcella Park PA-C documented in this encounterWayne Hospital03-24-2022 Miscellaneous Notes* Telephone Encounter - Mila [...] Please note: Warfarin was last sent to [facility]; he needs a new prescription sent for this medication. 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 Patient aware RX will be sent to pharmacy. No need to notify patient. Violette Call Pss documented in this encounterWayne Hospital03-23-2022 Miscellaneous Notes* Telephone Encounter - Nelson [...] advise, Halima Diaz RN documented in this encounterWayne Hospital02-02-2022 Miscellaneous Notes* Telephone Encounter - Garland Vicente - 08/16/2021 9:36 AM EST 10-10-2021 [facility] documented in this encounterWayne Hospital01-13-2022 NoteHNO ID: [id number] Author: REY Burt Service: Radiology Author Type: Crm Marketing Manager Type: Progress Notes Filed: 07/27/2021 10:50 [...] Roy DATE: July 27, 2021 TIME: 10:49 [facility] History of Past illness Narrative* Problem Noted [...] of this encounter (statuses as of 10/04/2021) [facility] of [facility] Narrative* Problem [...] of this encounter (statuses as of 10/05/2021) [facility] of [facility] illness Narrative* Problem [...] of this encounter (statuses as of 10/11/2021) [facility] of [facility] illness Narrative* Problem [...] of this encounter (statuses as of 10/16/2021) [facility] of [facility] Narrative* Problem [...] of this encounter (statuses as of 10/27/2021) [facility] of [facility] Narrative* Problem [...] of this encounter (statuses as of 11/20/2021) [facility] of [facility] Narrative* Problem [...] of this encounter (statuses as of 12/12/2021) [facility] of [facility] Narrative* Problem [...] of this encounter (statuses as of 12/13/2021) [facility] of [facility] illness Narrative* Problem [...] of this encounter (statuses as of 12/14/2021) [facility] of [facility] Narrative* Problem [...] of this encounter (statuses as of 01/01/2022) [facility] of [facility] Narrative* Problem Noted Date Resolved Date S/P aortic valve replacement 10/25/201401/2016 Pulmonary embolus, right 09/25/201305/2 018 Callus of foot 09/25/2013 07/20/2019 Tinea of nail 09/25/2013 07/20/2019 Encounter for monitoring Coumadin therapy 201307/20/2019 Overview: INR goal 2.5-3.5 Morbid obesity with BMI of 40.0-44.9, adult 04/12/201205/2018 Skin lesion 03/21/2011 06/20/2016 Cellulitis and abscess 11/22/2010 6 Non-healing surgical wound 09/19/201006/20 Abscess 09/08/2010 06/20/2016 Sciatica 05/04/2009 06/20/2016 documented as of this encounter (statuses as of 01/02/2022) [facility] of [facility] Narrative* Problem [...] of this encounter (statuses as of 01/02/2022) [facility] Narrative* Problem [...] of this encounter (statuses as of 01/06/2022) [facility] Narrative* Problem [...] of this encounter (statuses as of 01/10/2022) [facility] Narrative* Problem [...] of this encounter (statuses as of 01/11/2022) [facility] Narrative* Problem [...] of this encounter (statuses as of 01/12/2022) [facility] Narrative* Problem [...] of this encounter (statuses as of 01/12/2022) [facility] Narrative* Problem [...] of this encounter (statuses as of 01/19/2022) [facility] Narrative* Problem [...] of this encounter (statuses as of 01/23/2022) [facility] Narrative* Problem [...] of this encounter (statuses as of 01/25/2022) [facility] Narrative* Problem [...] of this encounter (statuses as of 01/30/2022) [facility] Narrative* Problem [...] of this encounter (statuses as of 02/01/2022) [facility] Past [facility] Narrative* Problem [...] of this encounter (statuses as of 02/02/2022) [facility] N[facility]ative* Problem [...] of this encounter (statuses as of 02/02/2022) [facility] Narrative* Problem [...] of this encounter (statuses as of 02/06/2022) [facility] Narrative* Problem [...] of this encounter (statuses as of 02/09/2022) [facility] N[facility]ative* Problem [...] of this encounter (statuses as of 02/14/2022) [facility] N[facility]ative* Problem [...] of this encounter (statuses as of 02/26/2022) [facility] N[facility]ative* Problem [...] of this encounter (statuses as of 03/02/2022) [facility] Narrative* Problem [...] of this encounter (statuses as of 03/05/2022) [facility]* Problem [...] of this encounter (statuses as of 03/07/2022) [facility]* Problem [...] of this encounter (statuses as of 03/08/2022) [facility]* Problem [...] of this encounter (statuses as of 03/09/2022) [facility] N[facility]ative* Problem [...] of this encounter (statuses as of 03/12/2022) [facility]* Problem [...] of this encounter (statuses as of 03/16/2022) [facility]* Problem [...] of this encounter (statuses as of 03/23/2022) [facility]* Problem [...] of this encounter (statuses as of 04/03/2022) [facility]* Problem [...] of this encounter (statuses as of 04/04/2022) [facility]* Problem [...] of this encounter (statuses as of 04/06/2022) [facility]* Problem [...] of this encounter (statuses as of 04/17/2022) [facility]* Problem [...] of this encounter (statuses as of 04/17/2022) [facility]* Problem [...] of this encounter (statuses as of 04/19/2022) [facility]* Problem [...] of this encounter (statuses as of 05/16/2022) [facility]* Problem [...] of this encounter (statuses as of 06/25/2022) [facility]* Problem [...] of this encounter (statuses as of 07/14/2022) [facility]ative* Problem [...] of this encounter (statuses as of 07/15/2022) [facility]* Problem [...] of this encounter (statuses as of 07/18/2022) [facility]* Problem [...] of this encounter (statuses as of 07/18/2022) [facility]* Problem [...] of this encounter (statuses as of 07/19/2022) [facility]* Problem [...] of this encounter (statuses as of 07/20/2022) [facility]* Problem [...] of this encounter (statuses as of 07/25/2022) [facility]* Problem [...] of this encounter (statuses as of 07/26/2022) [facility]* Problem [...] of this encounter (statuses as of 07/27/2022) [facility]* Problem [...] of this encounter (statuses as of 07/31/2022) [facility]* Problem [...] of this encounter (statuses as of 08/06/2022) [facility]* Problem [...] of this encounter (statuses as of 08/07/2022) [facility]* Problem [...] of this encounter (statuses as of 08/09/2022) [facility]ative* Problem [...] of this encounter (statuses as of 08/14/2022) [facility]* Problem [...] of this encounter (statuses as of 08/16/2022) [facility]* Problem [...] of this encounter (statuses as of 08/28/2022) [facility]* Problem [...] of this encounter (statuses as of 09/07/2022) [facility]* Problem [...] of this encounter (statuses as of 09/09/2022) [facility]* Problem [...] of this encounter (statuses as of 09/25/2022) [facility]* Problem [...] of this encounter (statuses as of 10/23/2022) [facility]* Problem [...] of this encounter (statuses as of 11/20/2022) [facility]* Problem [...] of this encounter (statuses as of 11/20/2022) [facility]* Problem [...] of this encounter (statuses as of 12/13/2022) [facility]* Problem [...] of this encounter (statuses as of 12/14/2022) [facility]* Problem [...] of this encounter (statuses as of 12/18/2022) [facility]* Problem [...] of this encounter (statuses as of 12/25/2022) [facility]* Problem [...] of this encounter (statuses as of 12/27/2022) [facility]* Problem [...] of this encounter (statuses as of 12/31/2022) [facility]* Problem [...] of this encounter (statuses as of 01/03/2023) [facility]* Problem [...] of this encounter (statuses as of 01/04/2023) [facility]* Problem [...] of this encounter (statuses as of 01/04/2023) [facility] N[facility]ative* Problem [...] of this encounter (statuses as of 01/25/2023) [facility] Narrative* Problem [...] of this encounter (statuses as of 01/29/2023) [facility] Diagnosis Type 2 diabetes mellitus with diabetic neuropathy, with long-term current use of insulin (HCC) Status post aortic valve repair Other postprocedural status Chronic anticoagulation Long-term (current) use of anticoagulants [facility] Diagnosis Colon cancer screening Special screening for malignant neoplasms, colon [facility] Diagnosis Colon cancer screening- Primary Special screening for malignant neoplasms, colon [facility]* Diagnosis Diverticulosis- Primary Diverticulosis of colon (without mention of hemorrhage) Cecal polyp [facility] noteNo assessment information availableWMiddletown Hospital Work Phone: Evaluation note* Diagnosis COVID-19- Primary [facility] Diagnosis COVID-19- Primary [facility] Diagnosis Onset Date Resolution Status Acute dehydration acute ANTHONY (acute kidney injury) ac derek Heat exhaustion acute Hyperkalemia acute Lactic acidosis acute Leukocytosis acute [facility] Work Phone: Evaluation note* Diagnosis Hyperlipidemia with target LDL less than 100- Primary Other and unspecified hyperlipidemia Primary hypertension Unspecified essential hypertension Thoracic aortic aneurysm without rupture (HCC) Thoracic aneurysm without mention of rupture Coronary artery disease involving [place] coronary artery of [place] heart without angina pectoris Syncope, unspecified syncope type Obesity, Class II, BMI 35-39.9 Obesity, unspecified [facility]* Diagnosis Syncope and collapse- Primary Altered mental status, unspecified altered mental status type Urinary incontinence, unspecified type Benign prostatic hyperplasia with nocturia Nocturia Vitamin D deficiency, unspecified Wound of left lower extremity, initial encounter Encounter for screening for malignant neoplasm of prostate Special screening for malignant neoplasm of prostate [facility] Diagnosis Abnormality of gait due to impairment of balance- Primary Altered mental status, unspecified altered mental status type [facility] Diagnosis Chronic anticoagulation Long-term (current) use of anticoagulants Thoracic aortic aneurysm without rupture (HCC) Thoracic aneurysm without mention of rupture Status post aortic valve repair Other postprocedural status [facility]* Diagnosis Type 2 diabetes mellitus with diabetic neuropathy, with long-term current use of insulin (HCC)- Primary [facility] Diagnosis Abnormality of gait due to impairment of balance- Primary [facility] Diagnosis Abnormality of gait due to impairment of balance- Primary [facility] Diagnosis Vitamin D deficiency Unspecified vitamin D deficiency [facility] Diagnosis Abnormality of gait due to impairment of balance- Primary [facility] Diagnosis Vitamin D deficiency Unspecified vitamin D deficiency [facility] Type 2 diabetes mellitus with stage 3 chronic kidney disease, with long-term current use of insulin ([facility]) [facility] Diagnosis Abnormality of gait due to impairment of balance- Primary [facility] Diagnosis Type 2 diabetes mellitus with diabetic neuropathy, with long-term current use of insulin (HCC) [facility] Abnormality of gait due to impairment of balance- Primary [facility] Diagnosis Abnormality of gait due to impairment of balance- Primary [facility] Diagnosis Onset Date Resolution Status Acute dehydration resolved Heat exhaustion resolved [facility] Work Phone: Evaluation note* Diagnosis Abnormality of gait due to impairment of balance- Primary [facility] Status post aortic valve repair Other postprocedural status Chronic anticoagulation Long-term (current) use of anticoagulants [facility] Diagnosis Generalized weakness- Primary Other malaise and fatigue Supratherapeutic INR Abnormal coagulation profile ANTHONY (acute kidney injury) (HCC) Acute kidney failure, unspecified [facility] Diagnosis Abnormality of gait due to impairment of balance- Primary [facility] Diagnosis Abnormality of gait due to impairment of balance- Primary [facility] Diagnosis Urinary incontinence, unspecified type [facility] Diagnosis Abnormality of gait due to impairment of balance- Primary [facility] Diagnosis Onychomycosis- Primary Dermatophytosis of nail Pain in toe of left foot Pain in limb Amputated toe of right foot (HCC) Diabetic polyneuropathy associated with type 2 diabetes mellitus (HCC) [facility] Diagnosis Generalized weakness- Primary Other malaise and fatigue Encounter for immunization Need for other specified prophylactic vaccination against single bacterial disease Mild depression Depressive disorder, not elsewhere classified [facility] Diagnosis Generalized anxiety disorder- Primary Polyneuropathy Unspecified hereditary and idiopathic peripheral neuropathy [facility] Diagnosis Urinary incontinence, unspecified type [facility] Diagnosis Onset Date Resolution Status History of pulmonary embolism acute History of thoracic aortic aneurysm repair acute NSTEMI, initial episode of care acute HTN (hypertension) [facility] Work Phone: Evaluation note* Diagnosis Dizziness- Primary Dizziness and giddiness Chronic frontal sinusitis documented [facility] this encounter [facility]* Diagnosis Type 2 diabetes mellitus with diabetic neuropathy, with long-term current use of insulin ([facility])- Primary Diabetic polyneuropathy associated with type 2 diabetes mellitus (HCC) NSTEMI (non-ST elevated myocardial infarction) ([facility]) Acute myocardial infarction, subendocardial infarction, episode of care unspecified Essential hypertension, benign Hyperlipidemia with target LDL less than 100 Other and unspecified hyperlipidemia Status post aortic valve repair Other postprocedural status Chronic anticoagulation Long-term (current) use of anticoagulants Urinary incontinence, unspecified type Benign prostatic hyperplasia with weak urinary stream Acquired absence of right great toe ([facility]) Lower limb amputation, great toe Type 2 diabetes mellitus with stage 3a chronic kidney disease, with long-term current use of insulin ([facility]) 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, macular edema presence unspecified ([facility]) [facility]* Diagnosis Driving safety issue- Primary Other specified personal history presenting hazards to health [facility] encounter [facility]* Diagnosis Onychomycosis- Primary Dermatophytosis of nail Pain in toe of left foot Pain in limb Amputated toe of right foot ([facility]) Diabetic polyneuropathy associated with type 2 diabetes mellitus ([facility]) documented in this encounter [facility]* Diagnosis Spinal stenosis, lumbar region, without neurogenic claudication- Primary Primary osteoarthritis of both knees Primary localized osteoarthrosis, lower leg [facility] Diagnosis Spinal stenosis, lumbar region, without neurogenic claudication- Primary Primary osteoarthritis of both knees Primary localized osteoarthrosis, lower leg documented in this encounter [facility]* Diagnosis Spinal stenosis, lumbar region, without neurogenic claudication- Primary Primary osteoarthritis of both knees Primary localized osteoarthrosis, lower leg documented in this encounter [facility]* Diagnosis Spinal stenosis, lumbar region, without neurogenic claudication- Primary Primary osteoarthritis of both knees Primary localized osteoarthrosis, lower leg [facility] Diagnosis Spinal stenosis, lumbar region, without neurogenic claudication- Primary Primary osteoarthritis of both knees Primary localized osteoarthrosis, lower leg documented in this encounter [facility]* Diagnosis Spinal stenosis, lumbar region, without neurogenic claudication- Primary Primary osteoarthritis of both knees Primary localized osteoarthrosis, lower leg documented in this encounter [facility]* Diagnosis Onset Date Resolution Status Confusion acute Weakness acute [facility] Work Phone: Evaluation note* Diagnosis Onset Date Resolution Status Confusion acute Weakness acute ABLA (acute blood loss anemia) acute Acute encephalopathy acute Supratherapeutic INR acute Syncope acute Upper gastrointestinal bleeding acute Warfarin-induced coagulopathy acute [facility] Work Phone: Evaluation note* Diagnosis Onset Date Resolution Status Confusion acute Weakness acute ABLA (acute blood loss anemia) acute Acute encephalopathy acute Anemia acute History of pulmonary embolism acute History of thoracic aortic aneurysm repair acute Second degree AV block, Mobitz type II acute Supratherapeutic INR acute Syncope acute Upper gastrointestinal bleeding acute Valvular heart disease acute Warfarin-induced coagulopathy acute HTN (hypertension) chronic [facility] Work Phone: Evaluation note* Diagnosis Onset Date [...] type II acute Sick sinus syndrome acute [facility] Work Phone: Evaluation note* Diagnosis Onset Date [...] (INR) acute UTI (urinary tract infection) acute [facility] Work Phone: Evaluation note* Diagnosis Onset Date [...] UTI (urinary tract infection) acute Weakness acute [facility] Work Phone: Evaluation note* Diagnosis Onset Date [...] degree AV block, Mobitz type II chronic [facility] Work Phone: Evaluation note* Diagnosis Onset Date [...] Second degree AV block, Mobitz type II [facility] Work Phone: Evaluation note* Diagnosis Onset [...] Second degree AV block, Mobitz type II [facility] Work Phone: Evaluation note* Diagnosis Onset Date Resolution Status Presence of cardiac pacemaker acute Syncope acute Second degree AV block, Mobitz type II chronic Sick sinus syndrome chronic Atrial fibrillation acute HLD (hyperlipidemia) acute Presence of cardiac pacemaker acute HTN (hypertension) chronic Second degree AV block, Mobitz type II [facility] Work Phone: Evaluation note* Diagnosis Onset Date Resolution Status Atrial fibrillation acute HLD (hyperlipidemia) acute Presence of cardiac pacemaker acute HTN (hypertension) chronic Second degree AV block, Mobitz type II [facility] Work Phone: History and physical note Author Dr. Aly [facility] January 04, 2023 4:32pm Note Date/Time January 04, 2023 4:12 pm [facility] Medical Records Department [address] [place] [address] H&P Exam - Hospitalist 01/04/23 1607 MR#: [id number] Acct: [id number] Name: RICHARD ROY Rep #:[id number] : 1945 77 From: Karen Aly MD PCP: Dr. Luis Caldera MD Status :ADM LUIS ANGEL Location: [place] [address] HPI - General General Date of Admission: 01/04/23 Date of Service: 01/04/23 Chief Complaint: Confusion, falls. HPI Narrative The patient is a 77 y/o M w/ PMHx: AAA s/p repair, Hx COVID-19, Hx GI bleed, Valvular heart disease s/p AVR, HTN, HLD, VTE w/ Hx DVT/PE, Diabetes mellitus type II, Obesity who presents to the [facility] ED on 01/04/23 with history of [...] no acute intracranial abnormality, right maxillary sinusitis. [facility] Medical History Amputation of right great toe [...] 78.3 H, Lymph % (Auto) 12.8 L, [place] % (Auto) 5.9, Eos % (Auto) 1.7, [...] Sl. Cloudy, Urine pH 6.0, Ur Specific [place] 1.020, Urine Protein 15 H, Urine Glucose [...] type II, Obesity who presents to the [facility] ED on 01/04/23 with history of [...] 60 minutes. Charges/Coding Visit Charges Inpatient E&M: 71438 Init Hosp L2 01/04/23 1632 <Electronically signed by Karen Aly MD> Cosigner Signature (if applicable): CC: Dr. Karen Ayl MD; Dr. Luis Caldera MD~ Signed [facility] Work Phone: Hospital course Narrative No data available for this section [facility] Discharge instructions No data available for this section [facility] Discharge instructions Additional Instructions Work-up revealed [...] days of antibiotics please return for repeat evaluationWMiddletown Hospital Work Phone: Hospital Discharge instructionsAdditional Instructions Blood work did not show any acute findings here today. X-ray did not show any evidence of osteomyelitis of his foot. His head CT did not show any acute findings either. Return with worsening symptoms or any concerns.[facility] Work Phone: Progress note No data available for this section [facility] Progress note Author Liu Hackett [facility] January 26, 2023 3:50pm Note Date/Time January 26, 2023 3:50 pm [facility] Medical Records Department [address] [place] [address] Progress Note - GI 01/26/23 1549 MR#: [id number] Acct: [id number] Name: RICHARD ROY Rep #:[id number] : 1945 77 From: Liu Hackett DO PCP: Dr. Luis Caldera MD Status :ADM IN Location: [place] [address] Subjective Subjective Patient is doing well today. [...] 78.4 H, Lymph % (Auto) 8.1 L, [place] % (Auto) 9.6, Eos % (Auto) 1.6, [...] Heart rate in 50s.. Discussed with the dietary services manager. No chest pain or tightness. Physical exam [...] ensure healing. Charges/Coding Visit Charges Inpatient E&M: 83249 Subs Hosp L3 01/26/23 1550 <Electronically signed by Liu Friend DO> Cosigner Signature (if applicable): CC: ~ Signed [facility] Work Phone: Progress note Author Smith Leija [facility] February 13, 2023 3:58pm Note Date/Time February 13, 2023 3:5 8pm [facility] Medical Records Department [facility] [place] [address] Progress Note - Infect Disease 02/13/23 1557 MR#: [id number] Acct: [id number] Name: RICHARD ROY Rep #:[id number] : 1945 77 From: Smith mcdowell MD PCP: Dr. Luis Caldera MD Status :ADM IN Location: [facility] [id number] Physical Exam Narrative Feeling better, no fever, [...] Cosigner Signature (if applicable): CC: ~ Signed [facility] Work Phone: Reason for referral (narrative)* Outpatient Procedure (Routine) - Closed Specialty Diagnoses / Procedures Referred By Linn carrillo Referred To Contact [facility] Diagnoses Colon cancer screening Procedures COLONOSCOPY SCREENING COLONOSCOPY FLX DX W/COLLJ SPEC WHEN PFRMD Marcella Park PA-C [address] [facility] [place] [address] [facility] [address] [place] [id number] Referral ID Status Reason Start Date Expiration Date V isits Requested Visits Authorized [id number] Closed Auto-Generate d Referral 08/16/2021 08/16/2022 1 1 [facility] for referral (narrative)* Outpatient Procedure (Routine) - Closed Specialty Diagnoses / Procedures Referred By Contcarlos carrillo Referred To Contact [facility] Diagnoses Colon cancer screening Procedures COLONOSCOPY SCREENING COLONOSCOPY FLX DX W/COLLJ SPEC WHEN Marcella Alatorre PA-C [address] [place] [address] [facility] [address] [id number] Referral ID Status Reason Start Date Expiration Date V isits Requested Visits Authorized [id number] Closed Auto-Generate d Referral 08/16/2021 08/16/2022 1 1 [facility] for referral (narrative)No reason for referral information availableWMiddletown [facility] Work Phone: Reason for visit Narrative* Outpatient Procedure (Routine) - Closed Specialty Diagnoses / Procedures Referred By Linn carrillo Referred To Contact [facility] Diagnoses Colon cancer screening Procedures COLONOSCOPY SCREENING COLONOSCOPY FLX DX W/COLLJ SPEC WHEN Marcella Alatorre PA-C [address] [place] [address] [facility] [address] [address] Referral ID Status Reason Start Date Expiration Date V isits Requested Visits Authorized [id number] Closed Auto-Generate d Referral 08/16/2021 08/16/2022 1 1 [facility] for visit Narrative* Outpatient Procedure (Routine) - Closed Specialty Diagnoses / Procedures Referred By Linn carrillo Referred To Contact [facility] Diagnoses Chronic anticoagulation Thoracic aortic aneurysm without rupture (HCC) Status post aortic valve repair Procedures ECHO TTE W/DOPPLER, COMPLETE Justina Monique E, TELEVISION PRODUCTION CLERK.MANAGER CREATIVE [address] [place] [address] [facility] [address] [place] [id number] Referral ID Status Reason Start Date Expiration Date V isits Requested Visits Authorized [id number] Closed Auto-Generate d Referral 07/03/2021 07/03/2022 1 1 [facility] Advance Directives No Advanced Directives Records FoundDocuments on File Type Date Recorded Patient District Claims Manager Expl anation Advance Directive(s) 09/12/2021 7:14 AM Documents on File Type Date Recorded Patient District Claims Manager Expl anation Advance Directive(s) 09/12/2021 7:14 AM Advance Directive Response Recorded Date/ Time Advance Directives Yes September 16 11:11pm Living Will No December 06, 2021 1 1:07pm Power of Director Call No December 06, 2021 11:07pm Advance Directive Response Recorded Date/ Time Name of Medical Power of Director Call Gena Roy December 27, 2021 10:36pm Advance Directives Yes September 16 11:11pm Living Will Yes December 27, 2021 10:36pm Power of Director Call Yes December 27 10:36pm Advance Directive Response Recorded Date/ Time Name of Medical Power of Director Call Gena Roy December 27, 2021 10:36pm Name of Medical Power of Director Call TEDDY ROY (SON ) March 02, 2022 2:34pm Advance Directives Yes September 16 11:11pm Living Will Yes March 02 2:34pm Power of Director Call Yes March 02, 2 022 2:34pm Advance Directive Response Recorded Date/ Time Name of Medical Power of Director Call teddy roy July 10, 2022 3:06am Advance Directives Yes September 16 10:11pm Living Will Yes July 10, 2 022 3:06am Power of Director Call Yes July 10, 2022 3:06am Advance Directive Response Recorded Date/ Time Name of Medical Power of Director Call ? January 04, 2023 11:15am Advance Directives Yes September 16 11:11pm Living Will Yes January 04, 2023 11:15am Power of Director Call Yes January 04 11:15am Advance Directive Response Recorded Date/ Time Name of Medical Power of Director Call Ciarra Roy (spouse), Teddy Roy (son) January 04, 2023 6:23pm Name of Medical Power of Director Call GENA ROY January 21, 2023 8:26am Advance Directives Yes September 16 11:11pm Living Will Yes January 21, 2023 8:26am Power of Director Call Yes January 21 8:26am Advance Directive Response Recorded Date/ Time Name of Medical Power of Director Call Ciarra Regant (spouse), Teddy Roy (son) January 04, 2023 6:23pm Name of Medical Power of Director Call Ciarra Roy January 21, 2023 12:23pm Advance Directives Yes September 16 11:11pm Living Will Yes January 21, 2023 12:23pm Power of Director Call Yes January 21 12:23pm Advance Directive Response Recorded Date/ Time Name of Medical Power of Director Call Ciarra Roy (spouse), Teddy Roy (son) January 04, 2023 6:23pm Name of Medical Power of Director Call Ciarra Roy (spouse) January 27, 2023 6:04pm Advance Directives Yes September 16 11:11pm Living Will Yes January 27, 2023 6:04pm Power of Director Call Yes January 27 6:04pm Name of Medical Power of Director Call Ciarra Roy January 21, 2023 12:23pm Advance Directive Response Recorded Date/ Time Name of Medical Power of Director Call Ciarra Roy (spouse), Teddy Roy (son) January 04, 2023 6:23pm Name of Medical Power of Director Call Ciarra Roy January 27, 2023 9:40pm Name of Medical Power of Director Call Ciarra Robison, February 10, 2023 9:27pm Advance Directives Yes September 16 11:11pm Living Will Yes February 10, 2023 9:27pm Power of Director Call Yes February 10 9:27pm Name of Medical Power of Director Call Ciarra Roy January 21, 2023 12:23pm Advance Directive Response Recorded Date/ Time Name of Medical Power of Director Call Ciarra Roy (spouse), Teddy Roy (son) January 04, 2023 6:23pm Name of Medical Power of Director Call Ciarra Roy January 27, 2023 9:40pm Name of Medical Power of Director Call Ciarra Robison, February 10, 2023 9:27pm Name of Medical Power of Director Call Ciarra MEEKS, February 11, 2023 4:25pm Advance Directives Yes September 16 11:11pm Living Will Yes February 11, 2023 4:25pm Power of Director Call Yes Cinthia [address], 202 3 4:25pm Name of Medical Power of Director Call Ciarra Roy January 21, 2023 12:23pm Advance Directive Response Recorded Date/ Time Name of Medical Power of Director Call Ciarra Roy (spouse), Teddy Roy (son) January 04, 2023 6:23pm Name of Medical Power of Director Call Ciarra Roy January 27, 2023 9:40pm Name of Medical Power of Director Call Ciarra Robison, February 10, 2023 9:27pm Name of Medical Power of Director Call Arthur MEEKSel, February 11, 2023 8:40pm Advance Directives Yes September 16 11:11pm Living Will Yes February 11, 2023 8:40pm Power of Director Call Yes February 11 8:40pm Name of Medical Power of Director Call Ciarra Roy January 21, 2023 12:23pm Advance Directive Response Recorded Date/ Time Name of Medical Power of Director Call Ciarra Roy January 27, 2023 9:40pm Name of Medical Power of Director Call Ciarra Robison, February 10, 2023 9:27pm Name of Medical Power of Director Call POA, Ciarra, w david February 11, 2023 8:40pm Advance Directives Yes September 16 11:11pm Living Will Yes February 11, 2023 8:40pm Power of Director Call Yes February 11 8:40pm Name of Medical Power of Director Call Ciarra Roy January 21, 2023 12:23pm Advance Directive Response Recorded Date/ Time Name of Medical Power of Director Call Ciarra Roy January 27, 2023 8:40pm Name of Medical Power of Director Call Ciarra Robison, February 10, 2023 8:27pm Name of Medical Power of Director Call POA, Ciarra, w david February 11, 2023 7:40pm Advance Directives Yes September 16 10:11pm Living Will Yes February 11, 2023 7:40pm Power of Director Call Yes February 11 7:40pm Name of Medical Power of Director Call Ciarra Roy January 21, 2023 11:23am Advance Directive Response Recorded Date/ Time Name of Medical Power of Director Call Ciarra Roy January 27, 2023 8:40pm Name of Medical Power of Director Call Ciarra Robison, February 10, 2023 8:27pm Name of Medical Power of Director Call Ciarra MEEKS w david February 11, 2023 7:40pm Advance Directives Yes September 16 10:11pm Living Will No May 30 11:36am Power of Director Call No May 30, 2023 11:36am Advance Directive Response Recorded Date/ Time Advance Directives Yes September 16 10:11pm Living Will No May 30 11:36am Power of Director Call No May 30, 2023 11:36am Advance Directive Response Recorded Date/ Time Advance Directives Yes September 16 11:11pm Living Will No May 30 12:36pm Power of Director Call No May 30, 2023 12:36pm Advance Directive Response Recorded Date/ Time Advance Directives Yes September 16 11:11pm Advance Directive Response Recorded Date/ Time Do you have a Healthcare Power of Director Call? Yes February 02, 2025 7:49pm Advance Directives Yes September 16 11:11pm Advance Directive Response Recorded Date/ Time Do you have a Healthcare Power of Director Call? Yes February 03, 2025 1:28am Advance Directives Yes September 16 11:11pm Advance Directive Response Recorded Date/ Time Do you have a Healthcare Power of Director Call? Yes February 03, 2025 1:28am Do you have a Healthcare Power of Director Call? Yes February 27, 2025 6:33pm Advance Directives [...] M FU October 12, 2024 1:0 9pm LONG TERM LAB WORK November 24, 2024 5:0 0am LONG TERM LAB WORK December 16, 2024 4:0 0am LONG TERM LAB WORK December 22, 2024 5: 00am [...] 2025 11:1 2pm Chief Complaint Admit Date LONG TERM LAB WORK November 24, 2024 5:0 0am LONG TERM LAB WORK December 16, 2024 4:0 0am LONG TERM LAB WORK December 22, 2024 5: 00am [...] 02, 2025 11:12pm Chief Complaint Admit Date LONG TERM LAB WORK November 24, 2024 5:0 0am LONG TERM LAB WORK December 16, 2024 4:0 0am LONG TERM LAB WORK December 22, 2024 5: 00am [...] 0am lethargic February 27, 2025 6: 24pm Chief Complaint Admit Date LONG TERM LAB WORK November 24, 2024 5:0 0am LONG TERM LAB WORK December 16, 2024 4:0 0am LONG TERM LAB WORK December 22, 2024 5: 00am [...] 0am lethargic February 27, 2025 6: 24pm Post Angiogram 2-4 WK FU March 03 3:23pm Reason for Visit Admit Date Acute osteomyelitis of metatarsal bone o f left foot February 02, 2025 11:12pm Cellulitis of left lower limb February 02, 2025 11:12pm Diabetes mellitus with diabetic polyneur opathy February 02, 2025 11:12pm PAD (peripheral artery disease) January 11:12pm Pneumonia February 02, 2025 11:1 2pm Type 2 diabetes mellitus with foot ulcer February 02, 2025 11:12pm PAD (peripheral artery disease) February 132024 3:23pm Type 2 diabetes mellitus with foot ulcer March 03, 2025 3:23pm Chief Complaint Admit Date LONG TERM LAB WORK November 24, 2024 5:0 0am LONG TERM LAB WORK December 16, 2024 4:0 0am LONG TERM LAB WORK December 22, 2024 5: 00am [...] 9:22am LABWORK February 15, 2025 5:0 0am LAB WORK February 16, 2025 5:0 0am LABWORK February 17, 2025 5:0 0am LABWORK February 18, 2025 5:0 0am LAB WORK February 22, 2025 4: 00am LONG TERM LAB WORK February 25, 2025 5:00am LABWORK February 26, 2025 5: 00am lethargic February 27, 2025 6: 24pm LABWORKJ March 03, 2025 5: 00am Post Angiogram 2-4 WK FU March 03 3:23pm FOLLOW UP PVD March 16, 2025 12:51pm S/P WCH 02/22March 22, 2025 9:47am Reason for Visit Admit Date Acute osteomyelitis of metatarsal bone o f left foot February 02, 2025 11:12pm Cellulitis of left lower limb February 02, 2025 11:12pm Diabetes mellitus with diabetic polyneur opathy February 02, 2025 11:12pm PAD (peripheral artery disease) January 11:12pm Pneumonia February 02, 2025 11:1 2pm Type 2 diabetes mellitus with foot ulcer February 02, 2025 11:12pm PAD (peripheral artery disease) February 132024 3:23pm Type 2 diabetes mellitus with foot ulcer March 03, 2025 3:23pm Presence of cardiac pacemaker March 22, 2025 9:47am Atrial fibrillation March 22, 2025 9:47am Diabetes March 22, 2025 9:47am HLD (hyperlipidemia) March 22, 2025 9:47am HTN (hypertension) March 22, 2025 9:47am Sick sinus syndrome March 22, 2025 9:47am Chief Complaint Admit Date LONG TERM LAB WORK November 24, 2024 5:0 0am LONG TERM LAB WORK December 16, 2024 4:0 0am LONG TERM LAB WORK December 22, 2024 5: 00am [...] 9:22am LABWORK February 15, 2025 5:0 0am LAB WORK February 16, 2025 5:0 0am LABWORK February 17, 2025 5:0 0am LABWORK February 18, 2025 5:0 0am LAB WORK February 22, 2025 4: 00am LONG TERM LAB WORK February 25, 2025 5:00am LABWORK February 26, 2025 5: 00am lethargic February 27, 2025 6: 24pm LABWORKJ March 03, 2025 5: 00am Post Angiogram 2-4 WK FU March 03 3:23pm FOLLOW UP PVD March 16, 2025 12:51pm S/P WCH 02/22March 22, 2025 9:47am overdue PPM f/u March 22, 2025 12:14pm Reason for Visit Admit Date Acute osteomyelitis of metatarsal bone o f left foot February 02, 2025 11:12pm Cellulitis of left lower limb February 02, 2025 11:12pm Diabetes mellitus with diabetic polyneur opathy February 02, 2025 11:12pm PAD (peripheral artery disease) January 11:12pm Pneumonia February 02, 2025 11:1 2pm Type 2 diabetes mellitus with foot ulcer February 02, 2025 11:12pm PAD (peripheral artery disease) February 132024 3:23pm Type 2 diabetes mellitus with foot ulcer March 03, 2025 3:23pm Atrial fibrillation March 22, 2025 9:47am Diabetes March 22, 2025 9:47am HLD (hyperlipidemia) March 22, 2025 9:47am HTN (hypertension) March 22, 2025 9:47am Presence of cardiac pacemaker March 22, 2025 9:47am Sick sinus syndrome March 22, 2025 9:47am Presence of cardiac pacemaker March 22, 2025 12:14pm Second degree AV block, Mobitz type II S eptember 2024 12:14pm Sick sinus syndrome March 22, 2025 12:14pm Chief Complaint Admit Date LONG TERM LAB WORK December 16, 2024 4:0 0am LONG TERM LAB WORK December 22, 2024 5: 00am [...] 9:22am LABWORK February 15, 2025 5:0 0am LAB WORK February 16, 2025 5:0 0am LABWORK February 17, 2025 5:0 0am LABWORK February 18, 2025 5:0 0am LAB WORK February 22, 2025 4: 00am LONG TERM LAB WORK February 25, 2025 5:00am LABWORK February 26, 2025 5: 00am lethargic February 27, 2025 6: 24pm LABWORKJ March 03, 2025 5: 00am Post Angiogram 2-4 WK FU March 03 3:23pm FOLLOW UP PVD March 16, 2025 12:51pm S/P WCH 02/22March 22, 2025 9:47am overdue PPM f/u March 22, 2025 12:14pm Chief Complaint Admit Date LONG TERM LAB WORK December 16, 2024 4:0 0am LONG TERM LAB WORK December 22, 2024 5: 00am [...] 9:22am LABWORK February 15, 2025 5:0 0am LAB WORK February 16, 2025 5:0 0am LABWORK February 17, 2025 5:0 0am LABWORK February 18, 2025 5:0 0am LAB WORK February 22, 2025 4: 00am LONG TERM LAB WORK February 25, 2025 5:00am LABWORK February 26, 2025 5: 00am lethargic February 27, 2025 6: 24pm LABWORKJ March 03, 2025 5: 00am Post Angiogram 2-4 WK FU March 03 3:23pm LONG TERM LAB WORK March 16 4:00am FOLLOW UP PVD March 16, 2025 12:51pm Pacer Check Remote March 22, 2025 9:00am S/P WCH 02/22March 22, 2025 9:47am overdue PPM f/u March 22, 2025 12:14pm Family History No Family History Records Found [...] Referred By Linn t Referred To Contact [facility] Diagnoses Driving safety issue Procedures CONSULT TO SUPERVISOR PYROTECHNIC LOADING OCCUPATIONAL THERAPY EVAL HIGH COMPLEX 60 MINS Jojo Kaur MD [address] [place] [address] [facility] [place] [id number] Referral ID Status Reason Start Date Expiration Date Visits Requested Visits Authorized [id number] Authorized PCP Requested Referral Auto-Generate d Referral 09/07/2022 09/07/2023 99 99 Specialty Diagnoses / Procedures Referred By Linn carrillo Referred To Contact [facility] Diagnoses Polyneuropathy Procedures CONSULT TO PHYSICAL THERAPY PHYSICAL THERAPY [facility] HIGH COMPLEX 45 MINS Jojo Kaur MD [address] [place] [address] [address] Referral ID Status Reason Start Date Expiration Date Visits Requested Visits Authorized [id number] Authorized PCP Requested Referral Auto-Generate d Referral 04/17/2022 04/17/2023 99 99 Specialty Diagnoses / Procedures Referred By Linn carrillo Referred To Contact Psychology Diagnoses Generalized anxiety disorder Procedures CONSULT TO PSYCHOLOGY OFFICE/OUTPATIENT [facility] 60-74 MINUTES Jojo Kaur MD [address] [place] [address] Referral ID Status Reason Start Date Expiration Date Visits Requested Visits Authorized [id number] Pending Review PCP Requested Referral 04/17/2022 04/17/2023 1 1 Specialty Diagnoses / Procedures Referred By Linn t Referred To Contact Podiatry Diagnoses Type 2 diabetes mellitus with diabetic neuropathy, with long-term current use of insulin (HCC) Procedures CONSULT TO PODIATRY OFFICE/OUTPATIENT COUNT INCLUDES THE [facility] MDM 60-74 MINUTES PodlogRoselia hernandez APRN.CNP [address] [place] [address] Referral ID Status Reason Start Date Expiration Date Visits Requested Visits Authorized [id number] Authorized PCP Requested Referral 01/12/2022 01/11/2023 1 1 Specialty Diagnoses / Procedures Referred By Linn t Referred To Contact [facility] Diagnoses Altered mental status, unspecified altered mental status type Procedures CONSULT TO SPEECH THERAPY OFFICE/OUTPATIENT [facility] 60-74 MINUTES Jojo Kaur MD [address] [place] [address] [facility] [place] [address] Referral ID Status Reason Start Date Expiration Date Visits Requested Visits Authorized [id number] Authorized Auto-Generat ed Referral 01/05/2022 01/05/2023 99 99 Specialty Diagnoses / Procedures Referred By Linn carrillo Referred To Contact [facility] Diagnoses Abnormality of gait due to impairment of balance Procedures CONSULT TO PHYSICAL THERAPY PHYSICAL THERAPY EVALUATION HIGH COMPLEX 45 MINS Jojo Kaur MD [address] [place] [id number] [facility] [place] [address] Referral ID Status Reason Start Date Expiration Date Visits Requested Visits Authorized [id number] Authorized PCP Requested Referral Auto-Generate d Referral 01/05/2022 01/05/2023 99 99 Specialty Diagnoses / Procedures Referred By Linn t Referred To Contact [facility] Diagnoses Altered mental status, unspecified altered mental status type Procedures EPIL EEG ROUTINE ELECTROENCEPHALOGRAM REC COMA/SLEEP ONLY Jojo Kaur MD [address] [place] [address] [facility] [address] [place], [place] [id number] Referral ID Status Reason Start Date Expiration Date Visits Requested Visits Authorized [id number] Authorized Auto-Generat ed Referral 01/05/2022 01/05/2023 1 1 Specialty Diagnoses / Procedures Referred By Linn carrillo Referred To Contact Neurology Diagnoses Altered mental status, unspecified altered mental status type Procedures CONSULT TO NEUROLOGY OFFICE/OUTPATIENT NEW HIGH MDM 60-74 MINUTES Abdulaziz Caldera MD [address] [place] [address] Referral ID Status Reason Start Date Expiration Date Visits Requested Visits Authorized [id number] Authorized PCP Requested Referral 01/01/2022 01/01/2023 1 1 Summary Purpose Additional Source Comments Source Comments (unrecognize d section and content) In the event this informatio n is protected by the Federal Confidentiality of Alcohol and Drug Abuse Patient Records regulations: The Federal rules restrict any use of the information to criminally investigate or prosecute any alcohol or drug abuse patient.[facility] the event this information is protected by the Federal Confidentiality of Alcohol and Drug Abuse Patient Records regulations: The Federal rules restrict any use of the information to criminally investigate or prosecute any alcohol or drug abuse patient.[facility] HospitalIn the event this information is protected by the Federal Confidentiality of Alcohol and Drug Abuse Patient Records regulations: The Federal rules restrict any use of the information to criminally investigate or prosecute any alcohol or drug abuse patient.[facility] the event this information is protected by the Federal Confidentiality of Alcohol and Drug Abuse Patient Records regulations: The Federal rules restrict any use of the information to criminally investigate or prosecute any alcohol or drug abuse patient.[facility] HospitalIn the event this information is protected by the Federal Confidentiality of Alcohol and Drug Abuse Patient Records regulations: The Federal rules restrict any use of the information to criminally investigate or prosecute any alcohol or drug abuse patient.[facility] HospitalIn the event this information is protected by the Federal Confidentiality of Alcohol and Drug Abuse Patient Records regulations: The Federal rules restrict any use of the information to criminally investigate or prosecute any alcohol or drug abuse patient.[facility] HospitalIn the event this information is protected by the Federal Confidentiality of Alcohol and Drug Abuse Patient Records regulations: The Federal rules restrict any use of the information to criminally investigate or prosecute any alcohol or drug abuse patient.[facility] HospitalIn the event this information is protected by the Federal Confidentiality of Alcohol and Drug Abuse Patient Records regulations: The Federal rules restrict any use of the information to criminally investigate or prosecute any alcohol or drug abuse patient.[facility] HospitalIn the event this information is protected by the Federal Confidentiality of Alcohol and Drug Abuse Patient Records regulations: The Federal rules restrict any use of the information to criminally investigate or prosecute any alcohol or drug abuse patient.[facility] HospitalIn the event this information is protected by the Federal Confidentiality of Alcohol and Drug Abuse Patient Records regulations: The Federal rules restrict any use of the information to criminally investigate or prosecute any alcohol or drug abuse patient.[facility] HospitalIn the event this information is protected by the Federal Confidentiality of Alcohol and Drug Abuse Patient Records regulations: The Federal rules restrict any use of the information to criminally investigate or prosecute any alcohol or drug abuse patient.[facility] HospitalIn the event this information is protected by the Federal Confidentiality of Alcohol and Drug Abuse Patient Records regulations: The Federal rules restrict any use of the information to criminally investigate or prosecute any alcohol or drug abuse patient.[facility] HospitalIn the event this information is protected by the Federal Confidentiality of Alcohol and Drug Abuse Patient Records regulations: The Federal rules restrict any use of the information to criminally investigate or prosecute any alcohol or drug abuse patient.[facility] HospitalIn the event this information is protected by the Federal Confidentiality of Alcohol and Drug Abuse Patient Records regulations: The Federal rules restrict any use of the information to criminally investigate or prosecute any alcohol or drug abuse patient.[facility] HospitalIn the event this information is protected by the Federal Confidentiality of Alcohol and Drug Abuse Patient Records regulations: The Federal rules restrict any use of the information to criminally investigate or prosecute any alcohol or drug abuse patient.[facility] HospitalIn the event this information is protected by the Federal Confidentiality of Alcohol and Drug Abuse Patient Records regulations: The Federal rules restrict any use of the information to criminally investigate or prosecute any alcohol or drug abuse patient.[facility] HospitalIn the event this information is protected by the Federal Confidentiality of Alcohol and Drug Abuse Patient Records regulations: The Federal rules restrict any use of the information to criminally investigate or prosecute any alcohol or drug abuse patient.[facility] HospitalIn the event this information is protected by the Federal Confidentiality of Alcohol and Drug Abuse Patient Records regulations: The Federal rules restrict any use of the information to criminally investigate or prosecute any alcohol or drug abuse patient.[facility] HospitalIn the event this information is protected by the Federal Confidentiality of Alcohol and Drug Abuse Patient Records regulations: The Federal rules restrict any use of the information to criminally investigate or prosecute any alcohol or drug abuse patient.[facility] HospitalIn the event this information is protected by the Federal Confidentiality of Alcohol and Drug Abuse Patient Records regulations: The Federal rules restrict any use of the information to criminally investigate or prosecute any alcohol or drug abuse patient.[facility] HospitalIn the event this information is protected by the Federal Confidentiality of Alcohol and Drug Abuse Patient Records regulations: The Federal rules restrict any use of the information to criminally investigate or prosecute any alcohol or drug abuse patient.[facility] HospitalIn the event this information is protected by the Federal Confidentiality of Alcohol and Drug Abuse Patient Records regulations: The Federal rules restrict any use of the information to criminally investigate or prosecute any alcohol or drug abuse patient.[facility] HospitalIn the event this information is protected by the Federal Confidentiality of Alcohol and Drug Abuse Patient Records regulations: The Federal rules restrict any use of the information to criminally investigate or prosecute any alcohol or drug abuse patient.[facility] HospitalIn the event this information is protected by the Federal Confidentiality of Alcohol and Drug Abuse Patient Records regulations: The Federal rules restrict any use of the information to criminally investigate or prosecute any alcohol or drug abuse patient.[facility] HospitalIn the event this information is protected by the Federal Confidentiality of Alcohol and Drug Abuse Patient Records regulations: The Federal rules restrict any use of the information to criminally investigate or prosecute any alcohol or drug abuse patient.[facility] HospitalIn the event this information is protected by the Federal Confidentiality of Alcohol and Drug Abuse Patient Records regulations: The Federal rules restrict any use of the information to criminally investigate or prosecute any alcohol or drug abuse patient.[facility] HospitalIn the event this information is protected by the Federal Confidentiality of Alcohol and Drug Abuse Patient Records regulations: The Federal rules restrict any use of the information to criminally investigate or prosecute any alcohol or drug abuse patient.[facility] HospitalIn the event this information is protected by the Federal Confidentiality of Alcohol and Drug Abuse Patient Records regulations: The Federal rules restrict any use of the information to criminally investigate or prosecute any alcohol or drug abuse patient.[facility] HospitalIn the event this information is protected by the Federal Confidentiality of Alcohol and Drug Abuse Patient Records regulations: The Federal rules restrict any use of the information to criminally investigate or prosecute any alcohol or drug abuse patient.[facility] HospitalIn the event this information is protected by the Federal Confidentiality of Alcohol and Drug Abuse Patient Records regulations: The Federal rules restrict any use of the information to criminally investigate or prosecute any alcohol or drug abuse patient.[facility] HospitalIn the event this information is protected by the Federal Confidentiality of Alcohol and Drug Abuse Patient Records regulations: The Federal rules restrict any use of the information to criminally investigate or prosecute any alcohol or drug abuse patient.[facility] HospitalIn the event this information is protected by the Federal Confidentiality of Alcohol and Drug Abuse Patient Records regulations: The Federal rules restrict any use of the information to criminally investigate or prosecute any alcohol or drug abuse patient.[facility] HospitalIn the event this information is protected by the Federal Confidentiality of Alcohol and Drug Abuse Patient Records regulations: The Federal rules restrict any use of the information to criminally investigate or prosecute any alcohol or drug abuse patient.[facility] HospitalIn the event this information is protected by the Federal Confidentiality of Alcohol and Drug Abuse Patient Records regulations: The Federal rules restrict any use of the information to criminally investigate or prosecute any alcohol or drug abuse patient.[facility] HospitalIn the event this information is protected by the Federal Confidentiality of Alcohol and Drug Abuse Patient Records regulations: The Federal rules restrict any use of the information to criminally investigate or prosecute any alcohol or drug abuse patient.[facility] HospitalIn the event this information is protected by the Federal Confidentiality of Alcohol and Drug Abuse Patient Records regulations: The Federal rules restrict any use of the information to criminally investigate or prosecute any alcohol or drug abuse patient.[facility] HospitalIn the event this information is protected by the Federal Confidentiality of Alcohol and Drug Abuse Patient Records regulations: The Federal rules restrict any use of the information to criminally investigate or prosecute any alcohol or drug abuse patient.[facility] HospitalIn the event this information is protected by the Federal Confidentiality of Alcohol and Drug Abuse Patient Records regulations: The Federal rules restrict any use of the information to criminally investigate or prosecute any alcohol or drug abuse patient.[facility] HospitalIn the event this information is protected by the Federal Confidentiality of Alcohol and Drug Abuse Patient Records regulations: The Federal rules restrict any use of the information to criminally investigate or prosecute any alcohol or drug abuse patient.[facility] HospitalIn the event this information is protected by the Federal Confidentiality of Alcohol and Drug Abuse Patient Records regulations: The Federal rules restrict any use of the information to criminally investigate or prosecute any alcohol or drug abuse patient.[facility] HospitalIn the event this information is protected by the Federal Confidentiality of Alcohol and Drug Abuse Patient Records regulations: The Federal rules restrict any use of the information to criminally investigate or prosecute any alcohol or drug abuse patient.[facility] HospitalIn the event this information is protected by the Federal Confidentiality of Alcohol and Drug Abuse Patient Records regulations: The Federal rules restrict any use of the information to criminally investigate or prosecute any alcohol or drug abuse patient.[facility] HospitalIn the event this information is protected by the Federal Confidentiality of Alcohol and Drug Abuse Patient Records regulations: The Federal rules restrict any use of the information to criminally investigate or prosecute any alcohol or drug abuse patient.[facility] HospitalIn the event this information is protected by the Federal Confidentiality of Alcohol and Drug Abuse Patient Records regulations: The Federal rules restrict any use of the information to criminally investigate or prosecute any alcohol or drug abuse patient.[facility] HospitalIn the event this information is protected by the Federal Confidentiality of Alcohol and Drug Abuse Patient Records regulations: The Federal rules restrict any use of the information to criminally investigate or prosecute any alcohol or drug abuse patient.[facility] HospitalIn the event this information is protected by the Federal Confidentiality of Alcohol and Drug Abuse Patient Records regulations: The Federal rules restrict any use of the information to criminally investigate or prosecute any alcohol or drug abuse patient.[facility] HospitalIn the event this information is protected by the Federal Confidentiality of Alcohol and Drug Abuse Patient Records regulations: The Federal rules restrict any use of the information to criminally investigate or prosecute any alcohol or drug abuse patient.[facility] HospitalIn the event this information is protected by the Federal Confidentiality of Alcohol and Drug Abuse Patient Records regulations: The Federal rules restrict any use of the information to criminally investigate or prosecute any alcohol or drug abuse patient.[facility] HospitalIn the event this information is protected by the Federal Confidentiality of Alcohol and Drug Abuse Patient Records regulations: The Federal rules restrict any use of the information to criminally investigate or prosecute any alcohol or drug abuse patient.[facility] HospitalIn the event this information is protected by the Federal Confidentiality of Alcohol and Drug Abuse Patient Records regulations: The Federal rules restrict any use of the information to criminally investigate or prosecute any alcohol or drug abuse patient.[facility] HospitalIn the event this information is protected by the Federal Confidentiality of Alcohol and Drug Abuse Patient Records regulations: The Federal rules restrict any use of the information to criminally investigate or prosecute any alcohol or drug abuse patient.[facility] HospitalIn the event this information is protected by the Federal Confidentiality of Alcohol and Drug Abuse Patient Records regulations: The Federal rules restrict any use of the information to criminally investigate or prosecute any alcohol or drug abuse patient.[facility] HospitalIn the event this information is protected by the Federal Confidentiality of Alcohol and Drug Abuse Patient Records regulations: The Federal rules restrict any use of the information to criminally investigate or prosecute any alcohol or drug abuse patient.[facility] HospitalIn the event this information is protected by the Federal Confidentiality of Alcohol and Drug Abuse Patient Records regulations: The Federal rules restrict any use of the information to criminally investigate or prosecute any alcohol or drug abuse patient.[facility] HospitalIn the event this information is protected by the Federal Confidentiality of Alcohol and Drug Abuse Patient Records regulations: The Federal rules restrict any use of the information to criminally investigate or prosecute any alcohol or drug abuse patient.[facility] HospitalIn the event this information is protected by the Federal Confidentiality of Alcohol and Drug Abuse Patient Records regulations: The Federal rules restrict any use of the information to criminally investigate or prosecute any alcohol or drug abuse patient.[facility] HospitalIn the event this information is protected by the Federal Confidentiality of Alcohol and Drug Abuse Patient Records regulations: The Federal rules restrict any use of the information to criminally investigate or prosecute any alcohol or drug abuse patient.[facility] HospitalIn the event this information is protected by the Federal Confidentiality of Alcohol and Drug Abuse Patient Records regulations: The Federal rules restrict any use of the information to criminally investigate or prosecute any alcohol or drug abuse patient.[facility] HospitalIn the event this information is protected by the Federal Confidentiality of Alcohol and Drug Abuse Patient Records regulations: The Federal rules restrict any use of the information to criminally investigate or prosecute any alcohol or drug abuse patient.[facility] HospitalIn the event this information is protected by the Federal Confidentiality of Alcohol and Drug Abuse Patient Records regulations: The Federal rules restrict any use of the information to criminally investigate or prosecute any alcohol or drug abuse patient.[facility] HospitalIn the event this information is protected by the Federal Confidentiality of Alcohol and Drug Abuse Patient Records regulations: The Federal rules restrict any use of the information to criminally investigate or prosecute any alcohol or drug abuse patient.[facility] HospitalIn the event this information is protected by the Federal Confidentiality of Alcohol and Drug Abuse Patient Records regulations: The Federal rules restrict any use of the information to criminally investigate or prosecute any alcohol or drug abuse patient.[facility] HospitalIn the event this information is protected by the Federal Confidentiality of Alcohol and Drug Abuse Patient Records regulations: The Federal rules restrict any use of the information to criminally investigate or prosecute any alcohol or drug abuse patient.[facility] HospitalIn the event this information is protected by the Federal Confidentiality of Alcohol and Drug Abuse Patient Records regulations: The Federal rules restrict any use of the information to criminally investigate or prosecute any alcohol or drug abuse patient.[facility] HospitalIn the event this information is protected by the Federal Confidentiality of Alcohol and Drug Abuse Patient Records regulations: The Federal rules restrict any use of the information to criminally investigate or prosecute any alcohol or drug abuse patient.[facility] HospitalIn the event this information is protected by the Federal Confidentiality of Alcohol and Drug Abuse Patient Records regulations: The Federal rules restrict any use of the information to criminally investigate or prosecute any alcohol or drug abuse patient.[facility] HospitalIn the event this information is protected by the Federal Confidentiality of Alcohol and Drug Abuse Patient Records regulations: The Federal rules restrict any use of the information to criminally investigate or prosecute any alcohol or drug abuse patient.[facility] HospitalIn the event this information is protected by the Federal Confidentiality of Alcohol and Drug Abuse Patient Records regulations: The Federal rules restrict any use of the information to criminally investigate or prosecute any alcohol or drug abuse patient.[facility] HospitalIn the event this information is protected by the Federal Confidentiality of Alcohol and Drug Abuse Patient Records regulations: The Federal rules restrict any use of the information to criminally investigate or prosecute any alcohol or drug abuse patient.[facility] HospitalIn the event this information is protected by the Federal Confidentiality of Alcohol and Drug Abuse Patient Records regulations: The Federal rules restrict any use of the information to criminally investigate or prosecute any alcohol or drug abuse patient.[facility] HospitalIn the event this information is protected by the Federal Confidentiality of Alcohol and Drug Abuse Patient Records regulations: The Federal rules restrict any use of the information to criminally investigate or prosecute any alcohol or drug abuse patient.[facility] HospitalIn the event this information is protected by the Federal Confidentiality of Alcohol and Drug Abuse Patient Records regulations: The Federal rules restrict any use of the information to criminally investigate or prosecute any alcohol or drug abuse patient.[facility] HospitalIn the event this information is protected by the Federal Confidentiality of Alcohol and Drug Abuse Patient Records regulations: The Federal rules restrict any use of the information to criminally investigate or prosecute any alcohol or drug abuse patient.[facility] HospitalIn the event this information is protected by the Federal Confidentiality of Alcohol and Drug Abuse Patient Records regulations: The Federal rules restrict any use of the information to criminally investigate or prosecute any alcohol or drug abuse patient.[facility] HospitalIn the event this information is protected by the Federal Confidentiality of Alcohol and Drug Abuse Patient Records regulations: The Federal rules restrict any use of the information to criminally investigate or prosecute any alcohol or drug abuse patient.[facility] HospitalIn the event this information is protected by the Federal Confidentiality of Alcohol and Drug Abuse Patient Records regulations: The Federal rules restrict any use of the information to criminally investigate or prosecute any alcohol or drug abuse patient.[facility] HospitalIn the event this information is protected by the Federal Confidentiality of Alcohol and Drug Abuse Patient Records regulations: The Federal rules restrict any use of the information to criminally investigate or prosecute any alcohol or drug abuse patient.[facility] HospitalIn the event this information is protected by the Federal Confidentiality of Alcohol and Drug Abuse Patient Records regulations: The Federal rules restrict any use of the information to criminally investigate or prosecute any alcohol or drug abuse patient.[facility] HospitalIn the event this information is protected by the Federal Confidentiality of Alcohol and Drug Abuse Patient Records regulations: The Federal rules restrict any use of the information to criminally investigate or prosecute any alcohol or drug abuse patient.[facility] Reason for Visit (unrecogniz ed section and content) Reason Comments PT Discharge Specialty Diagnoses / Procedures Referred By Contac t Referred To Contact [facility] Diagnoses Abnormality of gait due to impairment of balance Procedures CONSULT TO PHYSICAL THERAPY PHYSICAL THERAPY EVALUATION HIGH COMPLEX 45 MINS Jojo Kaur MD [address] [place] [address] [facility] [place] [address] [place] [address] Referral ID Status Reason Start Date Expiration Date Visits Requested Visits Authorized [id number] Authorized PCP Requested Referral Auto-Generate d Referral [...] 6 mo Reason Comments Hospital Follow Up [facility] discharged Reason Comments Results Reason Comments Consult altered mental statu s Specialty Diagnoses / Procedures Referred By Contac t Referred To Contact Neurology Diagnoses Altered mental status, unspecified altered mental status type Procedures CONSULT TO NEUROLOGY OFFICE/OUTPATIENT [facility] MDM 60-74 MINUTES Abdulaziz Caldera MD [address] [place] [address] Referral ID Status Reason Start Date Expiration Date V isits Requested Visits Authorized [id number] Closed PCP Requested Referral 01/01/2022 01/01/2023 1 [...] of Care Update Reason Comments [facility] PT POC Reason Comments OT plan of care Reason Onset Date Comments Refill Request 07/25/2022 Reason Comments Home Health-Nursing Update Reason Onset Date Comments Anticoagulation 07/31/2022 Specialty Diagnoses / Procedures Referred By Linn carrillo Referred To Contact Ent - Otolaryngology Diagnoses Chronic frontal sinusitis Procedures CONSULT TO ENT OFFICE/OUTPATIENT [facility] HIGH MDM 60-74 MINUTES Abdulaziz Caldera MD [address] [place] [address] Referral ID Status Reason Start Date Expiration Date V isits Requested Visits Authorized [id number] Closed PCP Requested Referral 07/12/2022 07/12/2023 1 [...] Care Teams (unrecognized sec tion and content) Shear Tender Relationship Specialty Start Date End Date Abdulaziz Caldera MD [address] [place] [address] PCP - General Family Practice 11/23/20 Shear Tender Relationship Specialty Start Date End Date Abdulaziz Caldera MD [address] [place] [address] PCP - General Family Practice 11/23/20 Shear Tender Relationship Specialty Start Date End Date Abdulaziz Caldera MD [address] [place] [address] PCP - General Family Practice 11/23/20 Shear Tender Relationship Specialty Start Date End Date Abdulaziz Caldera MD [address] [place] [address] PCP - General Family Practice 11/23/20 Shear Tender Relationship Specialty Start Date End Date Abdulaziz Caldera MD [address] [place] [address] PCP - General Family Practice 11/23/20 Shear Tender Relationship Specialty Start Date End Date Abdulaziz Caldera MD [address] [facility] [address] PCP - General Family Practice 11/23/20 Shear Tender Relationship Specialty Start Date End Date Abdulaziz Caldera MD [address] [facility] [address] PCP - General Family Practice 11/23/20 Shear Tender Relationship Specialty Start Date End Date Abdulaziz Caldera MD [address] [facility] [address] PCP - General Family Practice 11/23/20 Shear Tender Relationship Specialty Start Date End Date Abdulaziz Caldera MD [address] [facility] [address] PCP - General Family Practice 11/23/20 Shear Tender Relationship Specialty Start Date End Date Abdulaziz Caldera MD [address] [facility] [address] PCP - General Family Practice 11/23/20 Shear Tender Relationship Specialty Start Date End Date Abdulaziz Caldera MD [address] [facility] [address] PCP - General Family Practice 11/23/20 Shear Tender Relationship Specialty Start Date End Date Abdulaziz Caldera MD [address] [facility] [address] PCP - General Family Practice 11/23/20 Shear Tender Relationship Specialty Start Date End Date Abdulaziz Caldera MD [address] [facility] [address] PCP - General Family Practice 11/23/20 Shear Tender Relationship Specialty Start Date End Date Abdulaziz Caldera MD [address] [facility] [address] PCP - General Family Practice 11/23/20 Shear Tender Relationship Specialty Start Date End Date Abdulaziz Caldera MD [address] [facility] [address] PCP - General Family Practice 11/23/20 Shear Tender Relationship Specialty Start Date End Date Abdulaziz Caldera MD [address] [facility] [address] PCP - General Family Practice 11/23/20 Shear Tender Relationship Specialty Start Date End Date Abdulaziz Caldera MD [address] [facility] [address] PCP - General Family Practice 11/23/20 Shear Tender Relationship Specialty Start Date End Date Abdulaziz Caldera MD [address] [facility] [address] PCP - General Family Practice 11/23/20 Shear Tender Relationship Specialty Start Date End Date Abdulaziz Caldera MD [address] [facility] [address] PCP - General Family Practice 11/23/20 Shear Tender Relationship Specialty Start Date End Date Abdulaziz Caldera MD [address] [facility] [address] PCP - General Family Practice 11/23/20 Shear Tender Relationship Specialty Start Date End Date Abdulaziz Caldera MD [address] [facility] [address] PCP - General Family Practice 11/23/20 Shear Tender Relationship Specialty Start Date End Date Abdulaziz Caldera MD [address] [facility] [address] PCP - General Family Practice 11/23/20 Shear Tender Relationship Specialty Start Date End Date Abdulaziz Caldera MD [address] [facility] [address] PCP - General Family Medicine 11/23/20 Shear Tender Relationship Specialty Start Date End Date Abdulaziz Caldera MD [address] [facility] [address] PCP - General Family Medicine 11/23/20 Shear Tender Relationship Specialty Start Date End Date Abdulaziz Caldera MD [address] [facility] [address] PCP - General Family Medicine 11/23/20 Shear Tender Relationship Specialty Start Date End Date Abdulaziz Caldera MD [address] [facility] [address] PCP - General Family Medicine 11/23/20 Shear Tender Relationship Specialty Start Date End Date Abdulaziz Caldera MD [address] [facility] [address] PCP - General Family Medicine 11/23/20 Shear Tender Relationship Specialty Start Date End Date Abdulaziz Caldera MD [address] [facility] [address] PCP - General Family Medicine 11/23/20 Shear Tender Relationship Specialty Start Date End Date Abdulaziz Caldera MD [address] [facility] [address] PCP - General Family Medicine 11/23/20 Shear Tender Relationship Specialty Start Date End Date Abdulaziz Caldera MD [address] [facility] [address] PCP - General Family Medicine 11/23/20 Shear Tender Relationship Specialty Start Date End Date Abdulaziz Caldera MD [address] [facility] [address] PCP - General Family Medicine 11/23/20 Shear Tender Relationship Specialty Start Date End Date Abdulaziz Caldera MD [address] [facility] [address] PCP - General Family Medicine 11/23/20 Shear Tender Relationship Specialty Start Date End Date Abdulaziz Caldera MD [address] [facility] [address] PCP - General Family Medicine 11/23/20 Shear Tender Relationship Specialty Start Date End Date Abdulaziz Caldera MD [address] [facility] [address] PCP - General Family Medicine 11/23/20 Shear Tender Relationship Specialty Start Date End Date Abdulaziz Caldera MD [address] [facility] [address] PCP - General Family Medicine 11/23/20 Shear Tender Relationship Specialty Start Date End Date Abdulaziz Caldera MD [address] [facility] [address] PCP - General Family Medicine 11/23/20 Shear Tender Relationship Specialty Start Date End Date Abdulaziz Caldera MD [address] [facility] [address] PCP - General Family Medicine 11/23/20 Shear Tender Relationship Specialty Start Date End Date Abdulaziz Caldera MD [address] [facility] [address] PCP - General Family Medicine 11/23/20 Shear Tender Relationship Specialty Start Date End Date Abdulaziz Caldera MD [address] [facility] [address] PCP - General Family Medicine 11/23/20 Shear Tender Relationship Specialty Start Date End Date Abdulaziz Caldera MD [address] [place] [address] PCP - General Family Medicine 11/23/20 Shear Tender Relationship Specialty Start Date End Date Abdulaziz Caldera MD [address] [place] [address] PCP - General Family Medicine 11/23/20 Team [...] MD Admit Provider, Attending Provi skip Active Shear Tender Relationship Specialty Start Date End Date Abdulaziz Caldera MD [address] [place] [address] PCP - General Family Medicine 11/23/20 Team [...] Lizzeth Riggs MD Other Provider Active Rebecca LOZA, PA Attending Provider Active Team Status: Active [...] MD Admit Provider, Attending Prov ider Active Shear Tender Relationship Specialty Start Date End Date Abdulaziz Caldera MD [address] [place] [address] PCP - General Family Medicine 11/23/20 Team [...] Provider, Other Provid er Active Dr. Olga Lidai Rasheed MD Other Provider Active Team Status: [...] Caldera MD Primary Care Provider Acti ve Walterbreonna MAYORGA MD Attending Provider Active Team Status: Inactive Member Role Status Dates Dr. Luis Caldera MD Primary Care Provider Acti ve Dr. Geremias Carey , Emergency Provider Active Team Status: Active Member Role Status Dates Dr. Luis Caldera MD Primary Care Provider Acti ve Dr. Dandy Sauer MD Emergency Provider Active Dr. Gabriel Giraldo , Admit Provider, Attending Pro vider Active Team [...] Provider, Ref erring Provider Active Ann Rodríguez TECHNOLOGY DIRECTOR, TECHNOLOGY DIRECTOR-C Attending Provider Active Team Status: Active Member [...] Team Status: Active Member Role/Relationship Status Dates GURPREET RossC Primary Care Provider Active Team Status: Inactive [...] Provider Active Start: February 03, 2025 Kuldip [place] , TECHNOLOGY DIRECTOR-C Primary Care Provider Active Start: February 03, [...] Member Role/Relationship Status Dates Kuldip Cosby , TECHNOLOGY DIRECTOR-C Primary Care Provider Active Start: February 03, 2025 Dr. Aneesh Ac MD Attending Provider Active S tart: February 03, 2025 Team Status: Active Member Role/Relationship Status Dates Dr. Nichloas Galarza DO Emergency Provider Active Start: February 04, 2025 Kuldip Cosby , TECHNOLOGY DIRECTOR-C Primary Care Provider Active Start: February 04, [...] Start: February 04, 2025 Kuldip Cosby , TECHNOLOGY DIRECTOR-C Primary Care Provider Active Start: February 04, [...] Start: February 05, 2025 Kuldip Cosby , TECHNOLOGY DIRECTOR-C Primary Care Provider Active Start: February 05, [...] Start: February 06, 2025 Kuldip Cosby , TECHNOLOGY DIRECTOR-C Primary Care Provider Active Start: February 06, [...] Start: February 07, 2025 Kuldip Cosby , TECHNOLOGY DIRECTOR-C Primary Care Provider Active Start: February 07, [...] Active Start: February 08, 2025 Kuldip Cosby TECHNOLOGY DIRECTOR-C Primary Care Provider Active Start: February 08, [...] Active Start: February 09, 2025 Kuldip Cosby TECHNOLOGY DIRECTOR-C Primary Care Provider Active Start: February 09, [...] Active Start: February 09, 2025 Kuldip Cosby TECHNOLOGY DIRECTOR-C Primary Care Provider Active Start: February 09, 2025 Dr. Karen Aly MD Admit Provider Active St art: February 09, 2025 Dr. Karen Aly MD Other Provider Active St art: February 09, 2025 Dr. Kee Mejia DPM Other Provider Active Start: February 09, 2025 Dr. Hugo Cervantes MD Other Provider Active Start: February 09, 2025 Dr. Aenesh Ac MD Attending Provider Active S tart: February 09, 2025 Dr. Aneesh Ac MD Other Provider Active Start : February 09, 2025 Dr. Smith Leija MD Other Provider Active Start: February 09, 2025 Team Status: Active Member Role/Relationship Status Dates Dr. Nicholas Galarza DO Emergency Provider Active Start: February 10, 2025 Kuldip Cosby TECHNOLOGY DIRECTOR-C Primary Care Provider Active Start: February 10, [...] Active Start: February 10, 2025 Kuldip Cosby TECHNOLOGY DIRECTOR-C Primary Care Provider Active Start: February 10, [...] Provider Active Start: February 11, 2025 Kuldip [place] , TECHNOLOGY DIRECTOR-C Primary Care Provider Active Start: February 11, [...] Active Start: February 11, 2025 Kuldip Cosby TECHNOLOGY DIRECTOR-C Primary Care Provider Active Start: February 11, [...] Active Member Role/Relationship Status Dates Kuldip Cosby TECHNOLOGY DIRECTOR-C Primary Care Provider Active Start: February 10, [...] Active Start: February 10, 2025 Kuldip Cosby TECHNOLOGY DIRECTOR-C Primary Care Provider Active Start: February 10, [...] Active Start: February 10, 2025 Kuldip Cosby NP-C Primary Care Provider Active Start: February 10, [...] Start: February 11, 2025 Kuldip Cosby , TECHNOLOGY DIRECTOR-C Primary Care Provider Active Start: February 11, [...] Member Role/Relationship Status Dates Kuldip Cosby , TECHNOLOGY DIRECTOR-C Primary Care Provider Active Start: February 15, 2025 Walter MAYORGA MD Attending Provider Active S tart: February 15, 2025 Team Status: Active Member Role/Relationship Status Dates Kuldip Harjeet , TECHNOLOGY DIRECTOR-C Primary Care Provider Active Start: February 16, 2025 Walter MAYORGA MD Attending Provider Active S tart: February 16, 2025 Team Status: Active Member Role/Relationship Status Dates Kuldip Harjeet , TECHNOLOGY DIRECTOR-C Primary Care Provider Active Start: February 17, 2025 Walter MAYORGA MD Attending Provider Active S tart: February 17, 2025 Team Status: Active Member Role/Relationship Status Dates Kuldip Harjeet , TECHNOLOGY DIRECTOR-C Primary Care Provider Active Start: February 18, 2025 Walter MAYORGA MD Attending Provider Active S tart: February 18, 2025 Team Status: Active Member Role/Relationship Status Dates Kuldip Harjeet , TECHNOLOGY DIRECTOR-C Primary Care Provider Active Start: February 22, 2025 Walter MAYORGA MD Attending Provider Active S tart: February 22, 2025 Team Status: Active Member Role/Relationship Status Dates Kuldip [place] , TECHNOLOGY DIRECTOR-C Primary Care Provider Active Start: February 25, 2025 Walter MAYORGA MD Attending Provider Active S tart: February 25, 2025 Team Status: Active Member Role/Relationship Status Dates Kuldip [place] , TECHNOLOGY DIRECTOR-C Primary Care Provider Active Start: February 26, 2025 Walter MAYORGA MD Attending Provider Active S tart: February 26, 2025 Team Status: Inactive Member Role/Relationship Status Dates Kuldip Harjeet , TECHNOLOGY DIRECTOR-C Primary Care Provider Active Start: February 27, 2025 End: February 28, 2025 Dr. Bennett Troncoso , DO Emergency Provider Active Start: February 27, 2025 End: February 28, 2025 Team Status: Active Member Role/Relationship Status Dates Dr. Walter Becker Sr. , DO Primary Care Provider Active Team Status: Active Member Role/Relationship Status Dates Kuldip Cosby , TECHNOLOGY DIRECTOR-C Primary Care Provider Active Start: February 03, 2025 Dr. Aneesh Ac MD Attending Provider Active S tart: February 03, 2025 Dr. Kee Mejia DPM Referring Provider Active Start: February 03, 2025 Team Status: Active Member Role/Relationship Status Dates Dr. Nicholas Galarza DO Emergency Provider Active Start: February 04, 2025 Kuldip Cosby , TECHNOLOGY DIRECTOR-C Primary Care Provider Active Start: February 04, 2025 Dr. Karen Aly MD Admit Provider Active St art: February 04, 2025 Dr. Karen Aly MD Other Provider Active St art: February 04, 2025 Dr. Kee Mejia DPM Other Provider Active Start: February 04, 2025 Dr. Hugo Cervantes MD Referring Provider Active Start: February 04, 2025 Dr. Hugo Cervantes MD Other Provider Active Start: February 04, 2025 Dr. Aneesh Ac MD Other Provider Active Start : February 04, 2025 DENIA Baird Attending Provider Active Star t: February 04, 2025 Team Status: Active Member Role/Relationship Status Dates Kuldip Cosby , TECHNOLOGY DIRECTOR-C Primary Care Provider Active Start: March 03, 2025 Walter MAYORGA MD Attending Provider Active S tart: March 03, 2025 Team Status: Inactive Member Role/Relationship Status Dates Kuldip [place] , TECHNOLOGY DIRECTOR-C Referring Provider Active Sta rt: March 03, 2025 End: March 03, 2025 DENIA Baird Attending Provider Active Star t: March 03, 2025 End: March 03, 2025 Dr. Walter Becker Sr. , DO Primary Care Provider Active Start: March 03, 2025 End: March 03, 2025 Team Status: Active Member Role/Relationship Status Dates Dr. Nicholas Galarza DO Emergency Provider Active Start: February 09, 2025 Kuldip Cosby TECHNOLOGY DIRECTOR-C Primary Care Provider Active Start: February 09, 2025 Dr. Karen Aly MD Admit Provider Active St art: February 09, 2025 Dr. Karen Aly MD Other Provider Active St art: February 09, 2025 Dr. Kee Mejia DPM Other Provider Active Start: February 09, 2025 Dr. Hugo Cervantes MD Referring Provider Active Start: February 09, 2025 Dr. [...] Active Start: February 10, 2025 Kuldip Cosby NP-C Primary Care Provider Active Start: February 10, 2025 Dr. Karen Aly MD Admit Provider Active St art: February 10, 2025 Dr. Karen Aly MD Other Provider Active St art: February 10, 2025 Dr. Kee Mejia DPM Other Provider Active Start: February 10, 2025 Dr. Hugo Cervantes MD Referring Provider Active Start: February 10, 2025 Dr. [...] Provider Active Start: February 11, 2025 Kuldip [place] , TECHNOLOGY DIRECTOR-C Primary Care Provider Active Start: February 11, 2025 Dr. Karen Aly MD Admit Provider Active St art: February 11, 2025 Dr. Karen Aly MD Other Provider Active St art: February 11, 2025 Dr. Kee Mejia DPM Other Provider Active Start: February 11, 2025 Dr. Hugo Cervantes MD Referring Provider Active Start: February 11, 2025 Dr. Hugo Cervantes MD Other Provider Active Start: February 11, 2025 Dr. Aneesh Ac MD Other Provider Active Start : February 11, 2025 Dr. Smith Leija MD Other Provider Active Start: February 11, 2025 DENIA Baird Attending Provider Active Star t: February 11, 2025 Team Status: Active Member Role/Relationship Status Dates Kuldip Cosby TECHNOLOGY DIRECTOR-C Primary Care Provider Active Start: February 22, 2025 Walter MAYORGA MD Attending Provider Active S tart: February 22, 2025 Walter MAYORGA MD Referring Provider Active S tart: February 22, 2025 Team Status: Inactive Member Role/Relationship Status Dates Kuldip Cosby TECHNOLOGY DIRECTOR-C Primary Care Provider Active Start: February 27, 2025 End: February 28, 2025 Dr. Bennett Troncoso DO Attending Provider Active Start: February 27, 2025 End: February 28, 2025 Dr. Bennett Troncoso DO Emergency Provider Active Start: February 27, 2025 End: February 28, 2025 Team Status: Active Member Role/Relationship Status Dates Dr. Walter Becker Sr. , DO Primary Care Provider Active Start: March 16, 2025 Walter MAYORGA MD Attending Provider Active S tart: March 16, 2025 Team Status: Active Member Role/Relationship Status Dates Dr. Walter Becker Sr. , DO Primary Care Provider Active Start: March 16, 2025 DENIA Baird Attending Provider Active Star t: March 16, 2025 DENIA Baird Referring Provider Active Star t: March 16, 2025 Team Status: Active Member Role/Relationship Status Dates Dr. Walter Becker Sr. , DO Primary Care Provider Active Start: March 16, 2025 Dr. Aneesh Ac MD Attending Provider Active S tart: March 16, 2025 Team Status: Inactive Member Role/Relationship Status Dates GURPREET RossC Referring Provider Active Sta rt: March 22, 2025 End: March 22, 2025 Deangelo Thomson NP, TECHNOLOGY DIRECTOR-C Attending Provider Active S tart: March 22, 2025 End: March 22, 2025 Dr. Walter Becker Sr. , DO Primary Care Provider Active Start: March 22, 2025 End: March 22, 2025 Team Status: Inactive Member Role/Relationship Status Dates Dr. Walter Becker Sr. , DO Primary Care Provider Active Start: March 22, 2025 End: March 22, 2025 Dr. Walter Becker Sr. , DO Referring Provider Active Start: March 22, 2025 End: March 22, 2025 Debi Wetzel Attending Provider Active Start: S alexjanessa 2024 End: March 22, 2025 Team Status: Active Member Role/Relationship [...] February 02, 2025 End: February 11, 2025 AAYUSH Ross Primary Care Provider Active Start: February 02, [...] Active Start: February 03, 2025 Kuldip Cosby , TECHNOLOGY DIRECTOR-C Primary Care Provider Active Start: February 03, [...] Member Role/Relationship Status Dates Kuldip Cosby , TECHNOLOGY DIRECTOR-C Primary Care Provider Active Start: February 03, 2025 Dr. Aneesh Ac MD Attending Provider Active S tart: February 03, 2025 Dr. Kee Mejia DPM Referring Provider Active Start: February 03, 2025 Team Status: Active Member Role/Relationship Status Dates Dr. Nicholas Galarza DO Emergency Provider Active Start: February 04, 2025 Kuldip Cosby , TECHNOLOGY DIRECTOR-C Primary Care Provider Active Start: February 04, 2025 Dr. Karen Aly MD Admit Provider Active St art: February 04, 2025 Dr. Karen Aly MD Other Provider Active St art: February 04, 2025 Dr. Kee Mejia DPM Other Provider Active Start: February 04, 2025 Dr. Hugo Cervantes MD Referring Provider Active Start: February 04, 2025 Dr. Hugo Cervantes MD Other Provider Active Start: February 04, 2025 Dr. Aneesh Ac MD Other Provider Active Start : February 04, 2025 DENIA Baird Attending Provider Active Star t: February 04, 2025 Team Status: Active Member Role/Relationship Status Dates Dr. Nicholas Galarza DO Emergency Provider Active Start: February 04, 2025 Kuldip Cosby , TECHNOLOGY DIRECTOR-C Primary Care Provider Active Start: February 04, [...] Start: February 05, 2025 Kuldip Cosby , TECHNOLOGY DIRECTOR-C Primary Care Provider Active Start: February 05, [...] Start: February 06, 2025 Kuldip Cosby , TECHNOLOGY DIRECTOR-C Primary Care Provider Active Start: February 06, [...] Start: February 07, 2025 Kuldip Cosby , TECHNOLOGY DIRECTOR-C Primary Care Provider Active Start: February 07, [...] Active Start: February 08, 2025 Kuldip Cosby , TECHNOLOGY DIRECTOR-C Primary Care Provider Active Start: February 08, [...] Start: February 09, 2025 Kuldip Cosby , TECHNOLOGY DIRECTOR-C Primary Care Provider Active Start: February 09, [...] Provider Active Start: February 09, 2025 Kuldip Cobsy , TECHNOLOGY DIRECTOR-C Primary Care Provider Active Start: February 09, 2025 Dr. Karen Aly MD Admit Provider Active St art: February 09, 2025 Dr. Karen Aly MD Other Provider Active St art: February 09, 2025 Dr. Kee Mejia DPM Other Provider Active Start: February 09, 2025 Dr. Hugo Cervantes MD Referring Provider Active Start: February 09, 2025 Dr. Hugo Cervantes MD Other Provider Active Start: February 09, 2025 Dr. Aneesh Ac MD Attending Provider Active S tart: February 09, 2025 Dr. Aneesh Ac MD Other Provider Active Start : February 09, 2025 Dr. Smith Leija MD Other Provider Active Start: February 09, 2025 Team Status: Active Member Role/Relationship Status Dates Kuldip Cosby , TECHNOLOGY DIRECTOR-C Primary Care Provider Active Start: February 10, [...] Start: February 10, 2025 Kuldip Cosby , TECHNOLOGY DIRECTOR-C Primary Care Provider Active Start: February 10, 2025 Dr. Karen Aly MD Admit Provider Active St art: February 10, 2025 Dr. Karen Aly MD Other Provider Active St art: February 10, 2025 Dr. Kee Mejia DPM Other Provider Active Start: February 10, 2025 Dr. Hugo Cervantes MD Referring Provider Active Start: February 10, 2025 Dr. [...] Start: February 11, 2025 Kuldip Cosby , TECHNOLOGY DIRECTOR-C Primary Care Provider Active Start: February 11, 2025 Dr. Karen Aly MD Admit Provider Active St art: February 11, 2025 Dr. Karen Aly MD Other Provider Active St art: February 11, 2025 Dr. Kee Mejia DPM Other Provider Active Start: February 11, 2025 Dr. Hugo Cervantes MD Referring Provider Active Start: February 11, 2025 Dr. Hugo Cervantes MD Other Provider Active Start: February 11, 2025 Dr. Aneesh Ac MD Other Provider Active Start : February 11, 2025 Dr. Smith Leija MD Other Provider Active Start: February 11, 2025 DENIA Baird Attending Provider Active Star t: February 11, 2025 Team Status: Active Member Role/Relationship Status Dates Kuldip [place] , TECHNOLOGY DIRECTOR-C Primary Care Provider Active Start: February 15, 2025 Walter MAYORGA MD Attending Provider Active S tart: February 15, 2025 Team Status: Active Member Role/Relationship Status Dates Kuldip [place] , TECHNOLOGY DIRECTOR-C Primary Care Provider Active Start: February 16, 2025 Walter MAYORGA MD Attending Provider Active S tart: February 16, 2025 Team Status: Active Member Role/Relationship Status Dates Kuldip [place] , TECHNOLOGY DIRECTOR-C Primary Care Provider Active Start: February 17, 2025 Walter MAYORGA MD Attending Provider Active S tart: February 17, 2025 Team Status: Active Member Role/Relationship Status Dates Kuldip Harjeet , TECHNOLOGY DIRECTOR-C Primary Care Provider Active Start: February 18, 2025 Walter MAYORGA MD Attending Provider Active S tart: February 18, 2025 Team Status: Active Member Role/Relationship Status Dates Kuldip [place] , TECHNOLOGY DIRECTOR-C Primary Care Provider Active Start: February 22, 2025 Walter MAYORGA MD Attending Provider Active S tart: February 22, 2025 Walter MAYORGA MD Referring Provider Active S tart: February 22, 2025 Team Status: Active Member Role/Relationship Status Dates Kuldip Cosby , TECHNOLOGY DIRECTOR-C Primary Care Provider Active Start: February 25, 2025 Walter MAYORGA MD Attending Provider Active S tart: February 25, 2025 Team Status: Active Member Role/Relationship Status Dates Kuldip Cosby , TECHNOLOGY DIRECTOR-C Primary Care Provider Active Start: February 26, 2025 Walter MAYORGA MD Attending Provider Active S tart: February 26, 2025 Team Status: Inactive Member Role/Relationship Status Dates Kuldip Cosby , TECHNOLOGY DIRECTOR-C Primary Care Provider Active Start: February 27, 2025 End: February 28, 2025 Dr. Bennett Troncoso , Attending Provider Active Start: February 27, 2025 End: February 28, 2025 Dr. Bennett Troncoso , Emergency Provider Active Start: February 27, 2025 End: February 28, 2025 Team Status: Active Member Role/Relationship Status Dates Kuldip Cosby , TECHNOLOGY DIRECTOR-C Primary Care Provider Active Start: March 03, 2025 Walter MAYORGA MD Attending Provider Active S tart: March 03, 2025 Team Status: Inactive Member Role/Relationship Status Dates Kuldip Cosby , TECHNOLOGY DIRECTOR-C Referring Provider Active Sta rt: March 03, 2025 End: March 03, 2025 DENIA Baird Attending Provider Active Star t: March 03, 2025 End: March 03, 2025 Dr. Walter Becker Sr. , DO Primary Care Provider Active Start: March 03, 2025 End: March 03, 2025 Team Status: Active Member Role/Relationship Status Dates Dr. Walter Becker Sr. , DO Primary Care Provider Active Start: March 16, 2025 Walter MAYORGA MD Attending Provider Active S tart: March 16, 2025 Team Status: Inactive Member Role/Relationship Status Dates Dr. Walter Becker Sr. , DO Primary Care Provider Active Start: March 16, 2025 End: March 16, 2025 DENIA Baird Attending Provider Active Star t: March 16, 2025 End: March 16, 2025 DENIA Baird Referring Provider Active Star t: March 16, 2025 End: March 16, 2025 Team Status: Active Member Role/Relationship Status Dates Dr. Walter Becker Sr. , DO Primary Care Provider Active Start: March 16, 2025 Dr. Aneesh Ac MD Attending Provider Active S tart: March 16, 2025 Team Status: Inactive Member Role/Relationship Status Dates Kuldip Cosby NP-C Referring Provider Active Sta rt: March 22, 2025 End: March 22, 2025 Deangelo Thomson NP, TECHNOLOGY DIRECTOR-C Attending Provider Active S tart: March 22, 2025 End: March 22, 2025 Dr. Walter Becker Sr. , DO Primary Care Provider Active Start: March 22, 2025 End: March 22, 2025 Team Status: Inactive Member Role/Relationship Status Dates Dr. Walter Becker Sr. , DO Primary Care Provider Active Start: March 22, 2025 End: March 22, 2025 Dr. Walter Becker Sr. , DO Referring Provider Active Start: March 22, 2025 End: March 22, 2025 Debi Wetzel Attending Provider Active Start: S [id number] End: March 22, 2025 Team Status: Active Member Role/Relationship Status Dates Dr. Walter Becker Sr. , DO Primary Care Provider Active Start: March 16, 2025 Walter MAYORGA MD Attending Provider Active S tart: March 16, 2025 Walter MAYORGA MD Referring Provider Active S tart: March 16, 2025 Team Status: Inactive Member Role/Relationship Status Dates Dr. Walter Becker Sr. , DO Primary Care Provider Active Start: March 22, 2025 End: March 22, 2025 Dr. Júnior Chandra MD Attending Provider Active S tart: March 22, 2025 End: March 22, 2025 Goals (unrecognized section and content) Goals [...] AUTHOR AUTHOR'S ORGANIZ ATION 02/04/2022 [facility] DATE CREATED AUTHOR AUTHOR'S ORGANIZ ATION 04/19/2022 [facility] DATE CREATED AUTHOR AUTHOR'S ORGANIZ ATION 11/07/2024 [facility] DATE CREATED AUTHOR AUTHOR'S ORGANIZ ATION 04/16/2025 [facility] FOR RECORDS PERTAINING TO PATIENTS WHO ARE [...] BE BASED ON THE PRIMARY CLINICAL RECORDS. [facility] provides no warranty or guarantee of the accuracy or completeness of information in this document.
[2025-04-29 09:33] LABS: Hematocrit 32.8 % (40-54); Hemoglobin 10.8 g/dL (13.0-16.5); Mean Corp Hgb Conc 32.9 g/dL (32-36); Mean Corpuscular Volume 83.2 fL (80-94); Mean Platelet Vol. 9.4 fl (6.2-12.0); Platelet Count 230 K/mm3 (150-450); RBC Distribution Width CV 13.8 % (11.6-14.6); RBC Distribution Width SD 42.3 fl (35.1-43.9); Red Blood Count 3.94 M/mm3 (4.6-6.2); White Blood Count 11.6 K/mm3 (4.4-11.0)
[2025-04-29 09:48] LABS: AST(SGOT) 12 U/L (<=37); Alanine Aminotransfer ALT/SGPT 12 U/L (<=46); Albumin, Serum 3.3 g/dL (3.4-4.8); Alkaline Phosphatase 98 U/L (40-129); Anion Gap 11 (5-15); BUN 39 mg/dL (4-19); BUN/Creat Ratio 30.1 RATIO (10-20); Calcium,Total 9.3 mg/dL (7.6-11.0); Carbon Dioxide 25.5 mmol/L (21.0-32.0); Chloride 103 mmol/L (98-108); Globulin 2.1 g/dL (2.2-4.2); Glucose 136 mg/dL (70-99); Potassium 3.4 mmol/L (3.3-5.1)
== END ==
LOC: OLS.ACH 05:00
PROVIDERS: PCP Internal Medicine; Visit Provider Internal Medicine
DX: R53.1 Weakness (principal); R53.83 Other fatigue
CPT/HCPCS: 36415; 80053; 85027

== ENCOUNTER → 2025-04-30 00:30 | Outpatient (REF) | payer MEDICARE, OTHER, SELFPAY ==
[2025-04-30 08:34] LABS: Mucous, Urine 0 SEEN /hpf (<or=2+); Red Blood Cells-Urine 0 SEEN /hpf (0-5); Squamous Epithelial Cells - UA 0 SEEN /hpf (0-5)
[2025-04-30 09:24] LABS: Color, Urine Yellow (Yellow); Glucose, Dipstick Normal (Normal); Ketone-Dipstick Negative (Negative); Leukocyte Esterase-Dipstick Negative /ul (Negative); Nitrite-Dipstick Negative (Negative); Occult Blood-Urine Negative /ul (Negative); Protein-Dipstick 15 mg/dl (Negative); Specific Gravity, Urine 1.010 (1.002-1.030); Urine Bilirubin Dipstick Negative (Negative)
== END ==
LOC: OLS.ACH 00:30
PROVIDERS: PCP Internal Medicine; Visit Provider Internal Medicine
DX: N18.31 Chronic kidney disease, stage 3a (principal); D72.829 Elevated white blood cell count, unspecified
CPT/HCPCS: 81001; 87086

== ENCOUNTER → 2025-05-01 07:30 | Outpatient (REF) | payer MEDICARE, OTHER, SELFPAY ==
--- OUTSIDE RECORDS SUMMARY | 2025-05-01 08:45 | XMS RPT_ITS | CCD ---
Author Organization [facility] Care Team Providers Care Environmental Health Physician Name Role Phone Abdulaziz Caldera MD Primary [...] Earnest, Dr. Davis Other Provider Dr. Liu Hcakett Attending Provider Oneil, Dr. Moreau Other Provider Dr. Lizzeth Riggs Attending Provider Carolyn LOZA, PA Rebecca Damon Attending Provider Dr. Maggy Roberts Emergency Provider Dr. Luis Caldera Primary Care Provider Dr. Karen Aly Admit Provider Dr. Karen Aly Attending Provider Jermain, Dr. Karen Juan Other Provider Dr. Gabriel Giraldo Attending Provider Dr. Gabirel Giraldo Other Provider Dr. Dandy Sauer Emergency [...] Dr. Luis Caldera Primary Care Provider [phone] Dr. Syed Allen Emergency Provider Dr. Karen Aly Admit Provider Dr. Karen Aly Other Provider Dr. Yisel Rendon Attending Provider Dr. Yisel Rendon Other Provider Dr. Olga Lidia Rasheed Other Provider Dr. Luis Caldera Primary Care Provider [phone] Dr. Luis Caldera Referring Provider Debi Wetzel Attending Provider Unavailable Marcos HYDRAULIC MECHANIC, HYDRAULIC MECHANIC-C Ann Attending Provider Dr. Luis Caldera Primary Care Provider Dr. Luis Caldera Referring Provider Dr. Olga Lidia Rasheed Attending Provider Verenice CLOBERT, Dr. Smith Primary Care Provider Rosita COLBERT, Walter Attending Provider Unavailable Rosita COLBERT, Walter Referring Provider Unavailable Verenice COLBERT, Dr. Smith Referring Provider Wili COLBERT, Dr. Duggan Attending Provider Verenice COLBERT, Dr. Smith Primary Care Provider Rosita COLBERT, Walter Attending Provider Unavailable Rosita COLBERT, Walter Referring Provider Unavailable Dr. Nicholas Galarza DO Emergency Provider Harjeet HYDRAULIC MECHANIC-CKuldip Primary Care Provider Jermain COLBERT, Dr. Karen Juan Admit Provider Jermain COLBERT, Dr. Karen Juan Attending Provider Verenice COLBERT, Dr. Smith Primary Care Provider Rosita COLBERT, Walter Attending Provider Unavailable Rosita COLBERT, Walter Referring Provider Unavailable Dr. Nicholas Galarza DO Emergency Provider Harjeet HYDRAULIC MECHANIC-CKuldip Primary Care Provider Jermain COLBERT, Dr. Karen [...] Provider Osorio COLBERT, Dr. Melendrez Referring Provider Karyna DUVALL, Dr. Guajardo Emergency Provider Roberto SCHUMACHER, Dr. Sweet Referring Provider Billy COLBERT, Dr. Hugo Govea Referring Provider Harjeet HYDRAULIC MECHANIC-C, Kuldip Referring Provider Deperro Sr. DO, Dr. Watson Primary Care Provider Karyna DUVALL, Dr. Guajardo Attending Provider Douglas PA, Meghana Referring Provider [facility] HYDRAULIC MECHANIC-CDeangelo Attending Provider Deperro Sr. DO, Dr. Watson Referring Provider [phone] Debi Wetzel Attending Provider Unavailable Verenice COLBERT, Dr. Smith Primary Care Provider Rosita COLBERT, Walter Attending Provider Unavailable Deperro OLS, Walter Referring Unavailable Deperro OLS, Walter Attending Unavailable Deperro Sr., Walter Primary Care Unavailable Bursley, Luis Primary Care Unavailable Deperro OLS, Walter Referring Unavailable Deperro OLS, Walter Attending Unavailable Lumpkin, Kuldip Primary Care Unavailable Deperro OLS, Walter Attending Unavailable Harjeet, Kuldip Primary Care Unavailable Deperro OLS, Walter Attending Unavailable Deperro OLS, Walter Attending Unavailable Bursley, Luis Primary Care Unavailable Lumpkin, Kuldip Primary Care Unavailable Deperro OLS, Walter Attending Unavailable Deperro OLS, Walter Attending Unavailable Harjeet, Kuldip Primary Care Unavailable Lumpkin, Kuldip Primary Care Unavailable Kee Mejia Consulting Unavailable Karen Aly Admitting Unavailable Hugo Cervantes Attending Unavailable Karen Aly Consulting Unavailable Aneesh Ac Consulting Unavailable Smith Leija Consulting Unavailable Harjeet, Kuldip Primary Care Unavailable Kee Mejia Referring Unavailable Aneesh Ac Attending Unavailable Bursley, Luis Primary Care Unavailable Deperro OLS, Walter Referring Unavailable Deperro OLS, Walter Attending Unavailable Bursley, Luis Primary Care Unavailable Deperro OLS, Walter Attending Unavailable Lumpkin, Kuldip Primary Care Unavailable Bennett Troncoso Attending Unavailable Bursley, Luis Primary Care Unavailable Deperro OLS, Walter Attending Unavailable Deperro OLS, Walter Attending Unavailable Deperro Sr., Walter Primary Care Unavailable Deperro OLS, Walter Attending Unavailable Deperro Sr., Walter Primary Care Unavailable Deperro OLS, Walter Attending Unavailable Deperro Sr., Walter Primary Care Unavailable Lumpkin, Kuldip Primary Care Unavailable Deperro OLS, Walter Attending Unavailable Bursley, Luis Primary Care Unavailable Deperro OLS, Walter Attending Unavailable Harjeet, Kuldip Primary Care Unavailable Deperro OLS, Walter Referring Unavailable Deperro OLS, Walter Attending Unavailable Lumpkin, Kuldip Primary Care Unavailable Deperro OLS, Walter Attending Unavailable Lumpkin, Kuldip Primary Care Unavailable Deperro OLS, Walter Attending Unavailable Bursley, Luis Primary Care Unavailable Deperro OLS, Walter Attending Unavailable Deperro OLS, Walter Referring Unavailable Kee Merritt Attending Unavailable Kee Merritt Referring Unavailable Bursley, Luis Primary Care Unavailable Lumpkin, Kuldip Primary Care Unavailable Kee Mejia Consulting Unavailable Meghana Cole Attending Unavailable Karen Aly Admitting Unavailable Aria Cervantess Jeferson Referring Unavailable Karen Aly Consulting Unavailable Aneesh Ac Consulting Unavailable Smith Leija Consulting Unavailable Tunde Cervantesolas F Consulting Unavailable Bursley, Luis Primary Care Unavailable Deperro OLS, Walter Attending Unavailable Billy Hugo F Attending Unavailable Osorio Aneesh Attending Unavailable Karen Aly Attending Unavailable Lumpkin, Kuldip Referring Unavailable Harjeet, Kuldip Primary Care Unavailable Roof HYDRAULIC MECHANICDeangelo Attending Unavailable Harjeet, Kuldip Referring Unavailable Deperro Sr., Walter Primary Care Unavailable Roof HYDRAULIC MECHANIC, Deangelo Russell Attending Unavailable Deperro Sr., Walter Primary Care Unavailable Corazon, Burbank Referring Unavailable Corazon, Burbank Attending Unavailable Deperro Sr., Walter Primary Care Unavailable Corazon, Júnior Attending Unavailable Bursley, Luis Primary Care Unavailable Olga Lidia Rasheed Attending Unavailable Bursley, Luis Referring Unavailable Lumpkin, Kuldip Primary Care Unavailable Aneesh Ac Referring Unavailable Júnior Chandra Attending Unavailable Meghana Cole Referring Unavailable Deperro Sr., Walter Primary Care Unavailable Aneesh Ac Attending Unavailable Kuldip Cosby Referring Unavailable Douglas, Meghana Attending Unavailable Deperro Sr., Walter Primary Care Unavailable Cole, Meghana Referring Unavailable Cole, Meghana Attending Unavailable Deperro Sr., Walter Primary Care Unavailable Luis Caldera Primary Care Unavailable Deperro OLS, Walter Attending Unavailable Allergies Allergy Classification Reported Allergen(s) Allergy Type Date of Onset Reaction(s) Facility (20 sources) pantoprazole Drug Allergy 09-24-2019 Diarrhea [facility] (20 sources) Propofol Drug Allergy 12-06-2021 Other [facility] Comment on above: GETS AGGRESSIVE (1 source) Propofol Drug Allergy 03-22-2025 [facility] Repository Medications Current Medications Medication Drug [...] Comment on above: TAKE 1 TABLET BY [facility]CE DA[facility]. FOR CHOLESTEROL. bisacodyl 10 [...] on above: Take 1 capsule by mo [facility] one time a week. clopidogrel 75 mg oral table t (7 sources) P2Y12 Platelet Inhibitor Start: 02-11-2025 docusate sodium 50 mg / sennosides, retirement 8.6 mg oral tablet (12 sources) Start: 01-26-2023 Start: 01-26-2023 take 2 tablets by [facility] twice daily Sennosides-Docusate Sodium (Stool Softener-Stimulant [...] hydrochloride 10 mg oral tablet (20 sources) E-hirzdt-M-aspartate Receptor Antagonist Start: 01-26-2023 End: 02-13-2023 Start: [...] on above: Take 1 capsule by [facility] daily at bedtime. 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] Chronic Deficiency [...] Lactic acidosis; Translations: [Acidosis] Episodic Gastrointestinal hemorrhage (1 source) Chronic or unspecified duodenal ulcer with hemorrhage; Translations: [Chronic or unspecified duodenal ulcer with hemorrhage] Onset: 5 Chronic Gastrointestinal hemorrhage (20 sources) Upper gastrointestinal bleeding; Translations: [Gastrointestinal hemorrhage, unspecified] Onset: 5 12-27-2021 Episodic Genitourinary symptoms and ill-defined conditions [...] sources) Long-term 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, [address] EPI,SQUAMOUS 0 SEEN Normal 0-5 [facility] Comment on above: Order Comment: CLEAN CATCH Performed By: #### L 400.0001 ####[facility] [address] [place], [address] Mucus Ql (Urine sed) 0 SEEN Normal [facility] Comment on above: Order Comment: CLEAN CATCH Performed By: #### L 400.0001 ####[facility] [address] [place], [address] RBC 0 SEEN Normal 0-5 [facility] Comment on above: Order Comment: CLEAN CATCH Performed By: #### L 400.0001 ####[facility] [address] [place], [address] WBC 0 SEEN Normal 0-5 [facility] Comment on above: Order Comment: CLEAN CATCH Performed By: #### L 400.0001 ####[facility] [address] [place], [address] CBC-Complete Blood Cnt No Di ffon 04-29-2025 Erythrocyte distribution width (RBC) [Ratio] 13.8 % Normal 11.6-14.6 [facility] Comment on above: Order Comment: 215.2 Performed By: #### L 500.4050, L100.0500 ####[facility] [address] [place], [address] Hematocrit (Bld) [Volume fraction] 32.8 % Low 40-54 [facility] Comment on above: Order Comment: 215.2 Performed By: #### L 500.4050, L100.0500 ####[facility] [address] [place], [address] Hemoglobin (Bld) [Mass/Vol] 10.8 g/dL Low 13.0-16. 5 [facility] Comment on above: Order Comment: 215.2 Performed By: #### L 500.4050, L100.0500 ####[facility] [address] [place], [address] MCH (RBC) [Entitic mass] 27.4 pg Normal 27.0-32.0 [facility] Comment on above: Order Comment: 215.2 Performed By: #### L 500.4050, L100.0500 ####[facility] [address] [place], [address] MCHC (RBC) [Mass/Vol] 32.9 g/dL Normal 32-36 [facility] Comment on above: Order Comment: 215.2 Performed By: #### L 500.4050, L100.0500 ####[facility] [address] [place], [address] MCV (RBC) [Entitic vol] 83.2 fL Normal 80-94 [facility] Comment on above: Order Comment: 215.2 Performed By: #### L 500.4050, L100.0500 ####[facility] [address] [place], [address] Platelet mean volume (Bld) [Entitic vol] 9.4 fL Normal 6.2-12.0 [facility] Comment on above: Order Comment: 215.2 Performed By: #### L 500.4050, L100.0500 ####[facility] [address] [place], [address] Platelets (Bld) [#/Vol] 230 10*3/uL Normal 150-450 [facility] Comment on above: Order Comment: 215.2 Performed By: #### L 500.4050, L100.0500 ####[facility] [address] [place], [address] RBC (Bld) [#/Vol] 3.94 10*6/uL Low 4.6-6.2 [facility] Comment on above: Order Comment: 215.2 Performed By: #### L 500.4050, L100.0500 ####[facility] [address] [place], [address] RDW SD 42.3 fl Normal 35.1-43.9 [facility] Comment on above: Order Comment: 215.2 Performed By: #### L 500.4050, L100.0500 ####[facility] [address] [place], [address] WBC (Bld) [#/Vol] 11.6 10*3/uL High 4.4-11.0 [facility] Comment on above: Order Comment: 215.2 Performed By: #### L 500.4050, L100.0500 ####[facility] [address] [place], [address] Comprehensive Metabolic Prof ilon 04-29-2025 Albumin [Mass/Vol] 3.3 g/dL Low 3.4-4.8 [place] Comment on above: Order Comment: 215.2 Performed By: #### L 500.4050, L100.0500 ####[facility] [address] [place], [address] Albumin/Globulin [Mass ratio] 1.6 {ratio} Normal 0.9-2.4 [facility] Comment on above: Order Comment: 215.2 Performed By: #### L 500.4050, L100.0500 ####[facility] [address] [place], [address] ALK PHOS 98 U/L Normal 40-129 [facility] Comment on above: Order Comment: 215.2 Performed By: #### L 500.4050, L100.0500 ####[facility] [address] [place], [address] ALT [Catalytic activity/Vol] 12 U/L Normal <=46 [facility] Comment on above: Order Comment: 215.2 Performed By: #### L 500.4050, L100.0500 ####[facility] [address] [place], [address] AST [Catalytic activity/Vol] 12 U/L Normal <=37 [facility] Comment on above: Order Comment: 215.2 Performed By: #### L 500.4050, L100.0500 ####[facility] [address] [place], [address] Bilirubin [Mass/Vol] 0.35 mg/dL Normal 0.00-1.30 [facility] Comment on above: Order Comment: 215.2 Performed By: #### L 500.4050, L100.0500 ####[facility] [address] [place], [address] BUN/CRE 30.1 RATIO High 10-20 [facility] Comment on above: Order Comment: 215.2 Performed By: #### L 500.4050, L100.0500 ####[facility] [address] [place], [address] Calcium [Mass/Vol] 9.3 mg/dL Normal 7.6-11.0 [place] Comment on above: Order Comment: 215.2 Performed By: #### L 500.4050, L100.0500 ####[facility] [address] [place], [address] Chloride [Moles/Vol] 103 mmol/L Normal 98-108 [facility] Comment on above: Order Comment: 215.2 Performed By: #### L 500.4050, L100.0500 ####[facility] [address] [place], [address] CO2 [Moles/Vol] 25.5 mmol/L Normal 21.0-32.0 [facility] Comment on above: Order Comment: 215.2 Performed By: #### L 500.4050, L100.0500 ####[facility] [address] [place], [address] Creatinine [Mass/Vol] 1.29 mg/dL High 0.70-1.20 [facility] Comment on above: Order Comment: 215.2 Performed By: #### L 500.4050, L100.0500 ####[facility] [address] [place], [address] GAP 11 Normal 5-15 [facility] Comment on above: Order Comment: 215.2 Performed By: #### L 500.4050, L100.0500 ####[facility] [address] [place], [address] GFR/1.73 sq M.predicted among non-blacks MDRD (S/P/Bld) [Vol rate/Area] 57 mL/min/{1.73_m2} Low >60 [facility] Comment on above: Order Comment: 215.2 Result Comment: mL/m in/1.73m2 CKD-EPI Creatinine Equation (2020) Performed By: #### L 500.4050, L100.0500 ####[facility] [address] [place], [address] Globulin (S) [Mass/Vol] 2.1 g/dL Low 2.2-4.2 [facility] Comment on above: Order Comment: 215.2 Performed By: #### L 500.4050, L100.0500 ####[facility] [address] [place], [address] Glucose [Mass/Vol] 136 mg/dL High 70-99 [place] Comment on above: Order Comment: 215.2 Performed By: #### L 500.4050, L100.0500 ####[facility] [address] [place], [address] Potassium [Moles/Vol] 3.4 mmol/L Normal 3.3-5.1 [facility] Comment on above: Order Comment: 215.2 Performed By: #### L 500.4050, L100.0500 ####[facility] [address] [place], [address] Sodium [Moles/Vol] 140 mmol/L Normal 133-145 [place] Comment on above: Order Comment: 215.2 Performed By: #### L 500.4050, L100.0500 ####[facility] [address] [place], [address] T PROT 5.4 g/dL Low 5.9-8.4 [facility] Comment on above: Order Comment: 215.2 Performed By: #### L 500.4050, L100.0500 ####[facility] [address] [place], [address] Urea nitrogen [Mass/Vol] 39 mg/dL High 4-19 [facility] Comment on above: Order Comment: 215.2 Performed By: #### L 500.4050, L100.0500 ####[facility] [address] [place], [address] Basic Metabolic Profile (BMP )on 04-09-2025 BUN/CRE 33.2 RATIO High 10-20 [facility] Comment on above: Order Comment: 215.2 Performed By: #### L 100.0500, L500.2500 ####[facility] [address] [place], [address] Calcium [Mass/Vol] 9.5 mg/dL Normal 7.6-11.0 [place] Comment on above: Order Comment: 215.2 Performed By: #### L 100.0500, L500.2500 ####[facility] [address] [place], [address] Chloride [Moles/Vol] 105 mmol/L Normal 98-108 [facility] Comment on above: Order Comment: 215.2 Performed By: #### L 100.0500, L500.2500 ####[facility] [address] [place], [address] CO2 [Moles/Vol] 24.7 mmol/L Normal 21.0-32.0 [facility] Comment on above: Order Comment: 215.2 Performed By: #### L 100.0500, L500.2500 ####[facility] [address] [place], [address] Creatinine [Mass/Vol] 1.30 mg/dL High 0.70-1.20 [facility] Comment on above: Order Comment: 215.2 Performed By: #### L 100.0500, L500.2500 ####[facility] [address] [place], [address] GAP 12 Normal 5-15 [facility] Comment on above: Order Comment: 215.2 Performed By: #### L 100.0500, L500.2500 ####[facility] [address] [place], [address] GFR/1.73 sq M.predicted among non-blacks MDRD (S/P/Bld) [Vol rate/Area] 57 mL/min/{1.73_m2} Low >60 [facility] Comment on above: Order Comment: 215.2 Result Comment: mL/m in/1.73m2 CKD-EPI Creatinine Equation (2020) Performed By: #### L 100.0500, L500.2500 ####[facility] [address] [place], [address] Glucose [Mass/Vol] 119 mg/dL High 70-99 [place] Comment on above: Order Comment: 215.2 Performed By: #### L 100.0500, L500.2500 ####[facility] [address] [place], [address] Potassium [Moles/Vol] 3.6 mmol/L Normal 3.3-5.1 [facility] Comment on above: Order Comment: 215.2 Result Comment: Hemo lysis present, Results??could be affected.?? Performed By: #### L 100.0500, L500.2500 ####[facility] [address] [place], [address] Sodium [Moles/Vol] 141 mmol/L Normal 133-145 [place] Comment on above: Order Comment: 215.2 Performed By: #### L 100.0500, L500.2500 ####[facility] [address] [place], [address] Urea nitrogen [Mass/Vol] 43 mg/dL High 4-19 [facility] Comment on above: Order Comment: 215.2 Performed By: #### L 100.0500, L500.2500 ####[facility] [address] [place], [address] CBC-Complete Blood Cnt No Di ffon 04-09-2025 Erythrocyte distribution width (RBC) [Ratio] 13.6 % Normal 11.6-14.6 [facility] Comment on above: Order Comment: 215.2 Performed By: #### L 100.0500, L500.2500 ####[facility] [address] [place], [address] Hematocrit (Bld) [Volume fraction] 35.6 % Low 40-54 [facility] Comment on above: Order Comment: 215.2 Performed By: #### L 100.0500, L500.2500 ####[facility] [address] [place], [address] Hemoglobin (Bld) [Mass/Vol] 11.8 g/dL Low 13.0-16. 5 [facility] Comment on above: Order Comment: 215.2 Performed By: #### L 100.0500, L500.2500 ####[facility] [address] [place], [address] MCH (RBC) [Entitic mass] 28.0 pg Normal 27.0-32.0 [facility] Comment on above: Order Comment: 215.2 Performed By: #### L 100.0500, L500.2500 ####[facility] [address] [place], [address] MCHC (RBC) [Mass/Vol] 33.1 g/dL Normal 32-36 [facility] Comment on above: Order Comment: 215.2 Performed By: #### L 100.0500, L500.2500 ####[facility] [address] [place], [address] MCV (RBC) [Entitic vol] 84.4 fL Normal 80-94 [facility] Comment on above: Order Comment: 215.2 Performed By: #### L 100.0500, L500.2500 ####[facility] [address] [place], [address] Platelet mean volume (Bld) [Entitic vol] 9.4 fL Normal 6.2-12.0 [facility] Comment on above: Order Comment: 215.2 Performed By: #### L 100.0500, L500.2500 ####[facility] [address] [place], [address] Platelets (Bld) [#/Vol] 222 10*3/uL Normal 150-450 [facility] Comment on above: Order Comment: 215.2 Performed By: #### L 100.0500, L500.2500 ####[facility] [address] [place], [address] RBC (Bld) [#/Vol] 4.22 10*6/uL Low 4.6-6.2 [facility] Comment on above: Order Comment: 215.2 Performed By: #### L 100.0500, L500.2500 ####[facility] [address] [place], [address] RDW SD 41.8 fl Normal 35.1-43.9 [facility] Comment on above: Order Comment: 215.2 Performed By: #### L 100.0500, L500.2500 ####[facility] [address] [place], [address] WBC (Bld) [#/Vol] 10.3 10*3/uL Normal 4.4-11.0 [facility] Comment on above: Order Comment: 215.2 Performed By: #### L 100.0500, L500.2500 ####[facility] [address] [place], [address] Acid Fast Bacillus Cultureon 03-22-[address] [facility] Comment on above: Performed By: #### M 300.2000, M300.3000 ####[facility] [address] [place], [address] [facility] Comment on above: Performed By: #### M 300.2000, M300.3000 ####[facility] [address] [place], [address] Acid Fast Bacillus Smear/Flu oron 03-22-2025 [facility] Comment on above: Performed By: #### M 300.2000, M300.3000 ####[facility] [address] [place], [address] [facility] Comment on above: Performed By: #### M 300.2000, M300.3000 ####[facility] [address] [place], [address] Cardiology Visit Reporton Cardiology Visit Report Normal [facility] Culture, Fungus 8482on 03-22 [facility] Comment on above: Performed By: #### M 600.2000, M100.2000, M600.2200, M100.3000, M100.4001 ####[facility] [address] [place], [address] CUF [facility] Comment on above: Performed By: #### M 100.3000, M100.2000, M600.2200, M100.4001, M600.2000 ####[facility] [address] [place], [address] Fungus Stain 8136on 03-22-20 25 FUNST Normal [facility] Comment on above: Performed By: #### M 600.2000, M100.2000, M600.2200, M100.3000, M100.4001 ####[facility] [address] [place], [address] FUNST Normal [facility] Comment on above: Performed By: #### M 100.3000, M100.2000, M600.2200, M100.4001, M600.2000 ####[facility] [address] [place], [address] Pacemaker Checkon 03-22-2025 Pacemaker Check Normal [facility] Arterial Doppler ultrasound reportOrdered By: Aneesh Ac on 03-17-2025 Study report [facility] Work Phone: Arterial study reportOrdered By: Aneesh Ac on 03-17-2025 Noninvasive arteriosclerosis study report [facility] Work Phone: Anion gap in Serum or Plasma Ordered By: Walter Becker on 03-16-2025 Anion gap [Moles/Vol] 10 mmol/L 5-15 [facility] Ankle Brachial Indexon 03-16 Ankle Brachial Index Normal [facility] BUN/creatinine ratioOrdered By: Walter Becker on 03-16-2025 Urea nitrogen/Creatinine [Mass ratio] 34.7 mg/mg High 10-20 [facility] Bilirubin, totalOrdered By: Walter Becker on 03-16-2025 Bilirubin [Mass/Vol] 0.48 mg/dL 0.00-1.30 [facility] CBC-Complete Blood Cnt No Di ffon 03-16-2025 Erythrocyte distribution width (RBC) [Ratio] 13.8 % Normal 11.6-14.6 [facility] Comment on above: Order Comment: 215.2 Performed By: #### L 100.0500, L500.4050, L501.9985 ####[facility] [address] [place], [address] Hematocrit (Bld) [Volume fraction] 37.1 % Low 40-54 [facility] Comment on above: Order Comment: 215.2 Performed By: #### L 100.0500, L500.4050, L501.9985 ####[facility] [address] [place], [address] Hemoglobin (Bld) [Mass/Vol] 12.0 g/dL Low 13.0-16. 5 [facility] Comment on above: Order Comment: 215.2 Performed By: #### L 100.0500, L500.4050, L501.9985 ####[facility] [address] [place], [address] MCH (RBC) [Entitic mass] 27.6 pg Normal 27.0-32.0 [facility] Comment on above: Order Comment: 215.2 Performed By: #### L 100.0500, L500.4050, L501.9985 ####[facility] [address] [place], [address] MCHC (RBC) [Mass/Vol] 32.3 g/dL Normal 32-36 [facility] Comment on above: Order Comment: 215.2 Performed By: #### L 100.0500, L500.4050, L501.9985 ####[facility] [address] [place], [address] MCV (RBC) [Entitic vol] 85.3 fL Normal 80-94 [facility] Comment on above: Order Comment: 215.2 Performed By: #### L 100.0500, L500.4050, L501.9985 ####[facility] [address] [place], [address] Platelet mean volume (Bld) [Entitic vol] 9.6 fL Normal 6.2-12.0 [facility] Comment on above: Order Comment: 215.2 Performed By: #### L 100.0500, L500.4050, L501.9985 ####[facility] [address] [place], [address] Platelets (Bld) [#/Vol] 207 10*3/uL Normal 150-450 [facility] Comment on above: Order Comment: 215.2 Performed By: #### L 100.0500, L500.4050, L501.9985 ####[facility] [address] [place], [address] RBC (Bld) [#/Vol] 4.35 10*6/uL Low 4.6-6.2 [facility] Comment on above: Order Comment: 215.2 Performed By: #### L 100.0500, L500.4050, L501.9985 ####[facility] [address] [place], [address] RDW SD 43.0 fl Normal 35.1-43.9 [facility] Comment on above: Order Comment: 215.2 Performed By: #### L 100.0500, L500.4050, L501.9985 ####[facility] [address] [place], [address] WBC (Bld) [#/Vol] 9.5 10*3/uL Normal 4.4-11.0 [place] Comment on above: Order Comment: 215.2 Performed By: #### L 100.0500, L500.4050, L501.9985 ####[facility] [address] [place], [address] Carbon dioxide, total [Moles /volume] in Central venous bloodOrdered By: Walter Becker on 03-16-2025 CO2 [Moles/Vol] 26.3 mmol/L 21.0-32.0 [facility] Chloride assayOrdered By: Horner on 03-16-2025 Chloride [Moles/Vol] 105 mmol/L 98-108 [facility] Comprehensive Metabolic Prof ilon 03-16-2025 Albumin [Mass/Vol] 3.8 g/dL Normal 3.4-4.8 [place] Comment on above: Order Comment: 215.2 Performed By: #### L 100.0500, L500.4050, L501.9985 ####[facility] [address] [place], [address] Albumin/Globulin [Mass ratio] 1.5 {ratio} Normal 0.9-2.4 [facility] Comment on above: Order Comment: 215.2 Performed By: #### L 100.0500, L500.4050, L501.9985 ####[facility] [address] [place], [address] ALK PHOS 121 U/L Normal 40-129 [facility] Comment on above: Order Comment: 215.2 Performed By: #### L 100.0500, L500.4050, L501.9985 ####[facility] [address] [place], [address] ALT [Catalytic activity/Vol] 15 U/L Normal <=46 [facility] Comment on above: Order Comment: 215.2 Performed By: #### L 100.0500, L500.4050, L501.9985 ####[facility] [address] [place], [address] AST [Catalytic activity/Vol] 9 U/L Normal <=37 [facility] Comment on above: Order Comment: 215.2 Performed By: #### L 100.0500, L500.4050, L501.9985 ####[facility] [address] [place], [address] Bilirubin [Mass/Vol] 0.48 mg/dL Normal 0.00-1.30 [facility] Comment on above: Order Comment: 215.2 Performed By: #### L 100.0500, L500.4050, L501.9985 ####[facility] [address] [place], [address] BUN/CRE 34.7 RATIO High 10-20 [facility] Comment on above: Order Comment: 215.2 Performed By: #### L 100.0500, L500.4050, L501.9985 ####[facility] [address] [place], [address] Calcium [Mass/Vol] 10.0 mg/dL Normal 7.6-11.0 [place] Comment on above: Order Comment: 215.2 Performed By: #### L 100.0500, L500.4050, L501.9985 ####[facility] [address] [place], [address] Chloride [Moles/Vol] 105 mmol/L Normal 98-108 [facility] Comment on above: Order Comment: 215.2 Performed By: #### L 100.0500, L500.4050, L501.9985 ####[facility] [address] [place], [address] CO2 [Moles/Vol] 26.3 mmol/L Normal 21.0-32.0 [facility] Comment on above: Order Comment: 215.2 Performed By: #### L 100.0500, L500.4050, L501.9985 ####[facility] [address] [place], [address] Creatinine [Mass/Vol] 1.33 mg/dL High 0.70-1.20 [facility] Comment on above: Order Comment: 215.2 Performed By: #### L 100.0500, L500.4050, L501.9985 ####[facility] [address] [place], [address] GAP 10 Normal 5-15 [facility] Comment on above: Order Comment: 215.2 Performed By: #### L 100.0500, L500.4050, L501.9985 ####[facility] [address] [place], [address] GFR/1.73 sq M.predicted among non-blacks MDRD (S/P/Bld) [Vol rate/Area] 55 mL/min/{1.73_m2} Low >60 [facility] Comment on above: Order Comment: 215.2 Result Comment: mL/m in/1.73m2 CKD-EPI Creatinine Equation (2020) Performed By: #### L 100.0500, L500.4050, L501.9985 ####[facility] [address] [place], [address] Globulin (S) [Mass/Vol] 2.5 g/dL Normal 2.2-4.2 [facility] Comment on above: Order Comment: 215.2 Performed By: #### L 100.0500, L500.4050, L501.9985 ####[facility] [address] [place], [address] Glucose [Mass/Vol] 156 mg/dL High 70-99 [place] Comment on above: Order Comment: 215.2 Performed By: #### L 100.0500, L500.4050, L501.9985 ####[facility] [address] [place], [address] Potassium [Moles/Vol] 4.1 mmol/L Normal 3.3-5.1 [facility] Comment on above: Order Comment: 215.2 Performed By: #### L 100.0500, L500.4050, L501.9985 ####[facility] [address] [place], [address] Sodium [Moles/Vol] 141 mmol/L Normal 133-145 [place] Comment on above: Order Comment: 215.2 Performed By: #### L 100.0500, L500.4050, L501.9985 ####[facility] [address] [place], [place], [address] T PROT 6.3 g/dL Normal 5.9-8.4 [facility] Comment on above: Order Comment: 215.2 Performed By: #### L 100.0500, L500.4050, L501.9985 ####[facility] [address] [place], [place], [address] Urea nitrogen [Mass/Vol] 46 mg/dL High 4-19 [facility] Comment on above: Order Comment: 215.2 Performed By: #### L 100.0500, L500.4050, L501.9985 ####[facility] [address] [place], [place], [address] Erythrocyte distribution wid th ratioOrdered By: Walter Becker on 03-16-2025 Erythrocyte distribution width (RBC) [Ratio] 13.8 % 11.6-14.6 [facility] Erythrocyte distribution wid th standard deviationOrdered By: Walter Becker on 03-16-2025 Erythrocyte distribution width (RBC) [Ratio] 43.0 fl 35.1-43.9 [facility] Glomerular filtration rate ( GFR) estimation/1.73 sq m using serum, plasma, or whole bOrdered By: Walter Becker on 03-16-2025 GFR/1.73 sq M.predicted among non-blacks MDRD (S/P/Bld) [Vol rate/Area] 55 mL/min/{1.73_m2} Low >60 [facility] Hematocrit Auto (Bld) [Volum e fraction]Ordered By: Walter Becker on 03-16-2025 Hematocrit (Bld) [Volume fraction] 37.1 % Low 40-54 [facility] Hemoglobin A1con 03-16-2025 HbA1c (Bld) [Mass fraction] 6.7 % High <=5.6 [facility] Comment on above: Order Comment: 215.2 Result Comment: Norm al < 5.7 % Prediabetic 5.7 - 6.4 % Diabetic >or= 6.5 % Please note range changes. Performed By: #### L 100.0500, L500.4050, L501.9985 ####[facility] [address] [place], [place], [address] Hemoglobin A1c percentageOrd ered By: Walter Becker on 03-16-2025 HbA1c (Bld) [Mass fraction] 6.7 % High <5.7 [facility] Hemoglobin measurementOrdere d By: Walter Becker on 03-16-2025 Hemoglobin (Bld) [Mass/Vol] 12.0 g/dL Low 13.0-16. 5 [facility] MCV (mean corpuscular volume ) determinationOrdered By: Walter Becker on 03-16-2025 MCV (RBC) [Entitic vol] 85.3 fL 80-94 [facility] Mean corpuscular hemoglobin (MCH) determinationOrdered By: Walter Becker on 03-16-2025 MCH (RBC) [Entitic mass] 27.6 pg 27.0-32.0 [facility] No Panel InformationOrdered By: Walter Becker on 03-16-2025 9 U/L <38 [facility] Platelet countOrdered By: Horner on 03-16-2025 Platelets (Bld) [#/Vol] 207 10*3/uL 150-450 [facility] Potassium measurement (mass/ volume)Ordered By: Walter Becker on 03-16-2025 Potassium (Unsp spec) [Mass/Vol] 4.1 mmol/L 3.3-5.1 [facility] RBC Auto (Bld) [#/Vol]Ordere d By: Walter Becker on 03-16-2025 RBC (Bld) [#/Vol] 4.35 10*6/uL Low 4.6-6.2 [facility] Serum creatinine measurement (mass/volume)Ordered By: Walter Becker on 03-16-2025 Creatinine [Mass/Vol] 1.33 mg/dL High 0.70-1.20 [facility] Serum globulin measurementOr dered By: Walter Becker on 03-16-2025 Globulin (S) [Mass/Vol] 2.5 g/dL 2.2-4.2 [facility] Serum glucose measurement (m ass/volume)Ordered By: Walter Becker on 03-16-2025 Glucose [Mass/Vol] 156 mg/dL High 70-99 [place] Serum or plasma alanine davis otransferase (ALT) measurementOrdered By: Walter Becker on 03-16-2025 ALT [Catalytic activity/Vol] 15 U/L <47 [facility] Serum or plasma albumin antoine urement (mass/volume)Ordered By: Walter Becker on 03-16-2025 Albumin [Mass/Vol] 3.8 g/dL 3.4-4.8 [place] Serum or plasma albumin/glob ulin mass ratioOrdered By: Walter Becker on 03-16-2025 Albumin/Globulin [Mass ratio] 1.5 {ratio} 0.9-2.4 [facility] Serum or plasma alkaline marilin sphatase measurementOrdered By: Walter Becker on 03-16-2025 ALP [Catalytic activity/Vol] 121 U/L 40-129 [facility] Serum or plasma calcium antoine urement (mass/volume)Ordered By: Walter Becker on 03-16-2025 Calcium [Mass/Vol] 10.0 mg/dL 7.6-11.0 [place] Serum or plasma urea nitroge n measurement (mass/volume)Ordered By: Walter Becker on 03-16-2025 Urea nitrogen [Mass/Vol] 46 mg/dL High 4-19 [facility] Sodium levelOrdered By: Walter Becker on 03-16-2025 Sodium [Moles/Vol] 141 mmol/L 133-145 [place] Total proteinOrdered By: Crystal Becker on 03-16-2025 Protein [Mass/Vol] 6.3 g/dL 5.9-8.4 [place] US Art Duplex Unilat Lower E xton 03-16-2025 US Art Duplex Unilat Lower Ext Normal [facility] White blood cell (WBC) count Ordered By: Walter Becker on 03-16-2025 WBC (Bld) [#/Vol] 9.5 10*3/uL 4.4-11.0 [place] Culture, Blood (WB)on 2024 CUB Normal [facility] Comment on above: Performed By: #### L 100.0100, L503.6005, L500.4050, M200.1000, L300.4310, L300.3900, M100.636 ####[facility] [address] [place], [address] L509.6001on 03-03-2025 CORTISOL 10.60 ug/dL Normal 6.02-18.40 [facility] Comment on above: Order Comment: 215-2 Performed By: #### L 509.6001, L501.9520, L506.0400, L503.0106 ####[facility] [address] [place], [address] MR/BMS.BVSon 03-03-2025 MR/BMS.BVS Normal [facility] Serum or plasma cortisol hank surement (mass/volume)Ordered By: Walter Becker on 03-03-2025 Cortisol [Mass/Vol] 10.60 ug/dL 6.02-18.40 [facility] T4 Free Directon 03-03-2025 T4 FREE DIRECT 1.60 ng/dL High 0.76-1.46 [facility] Comment on above: Order Comment: 215-2 Performed By: #### L 509.6001, L501.9520, L506.0400, L503.0106 ####[facility] [address], [address] T4 freeOrdered By: Walter anna on 03-03-2025 Free T4 [Mass/Vol] 1.60 ng/dL High 0.76-1.46 [place] TSH DL <= 0.005 mIU/L QnOrde red By: Walter Becker on 03-03-2025 TSH Qn 1.180 uIU/mL 0.300-4.20 0 [facility] Thyroid Stim Hormone (TSH)on 03-03-2025 TSH 1.180 uIU/mL Normal 0.300-4.20 0 [facility] Comment on above: Order Comment: 215-2 Performed By: #### L 509.6001, L501.9520, L506.0400, L503.0106 ####[facility] [address] [place], [address] Vitamin B12on 03-03-2025 Cobalamin (Vitamin B12) [Mass/Vol] 522 pg/mL Normal 180-914 [facility] Comment on above: Order Comment: 215-2 Performed By: #### L 509.6001, L501.9520, L506.0400, L503.0106 ####[facility] [address], [address] Vitamin B12 ser/plasOrdered By: Walter Becker on 03-03-2025 Cobalamin (Vitamin B12) [Mass/Vol] 522 pg/mL 180-914 [facility] BC GPC IDon 03-01-2025 BC GPC ID Normal [facility] Comment on above: Performed By: #### L 100.0100, L503.6005, L500.4050, M200.1000, L300.4310, L300.3900, M100.636 ####[facility] [address] [place], [address] Urine Cultureon 02-28-2025 URC Culture exhibits no growth. Normal [facility] Comment on above: Performed By: #### L 400.0001, M100.2200 ####[facility] [address] [place], [address] Absolute lymphocyte countOrd ered By: Bennett Troncoso on 02-27-2025 Lymphocytes Auto (Unsp spec) [#/Vol] 1.80 10*3/uL 0.83-4.51 [facility] Activated partial thrombopla stin time (aPTT) in platelet poor plasma by coagulation aOrdered By: Bennett Troncoso on 02-27-2025 aPTT Coag (PPP) [Time] 29.4 s 24.1-36.2 [facility] Anion gap in Serum or Plasma Ordered By: Bennett Troncoso on 02-27-2025 Anion gap [Moles/Vol] 12 mmol/L 5-15 [facility] Automated lymphocyte count a s percentage of total leukocytesOrdered By: Bennett Troncoso on 02-27-2025 Lymphocytes/100 WBC Auto (Unsp spec) 14.2 % Low 19-41 [facility] BUN/creatinine ratioOrdered By: Bennett Troncoso on 02-27-2025 Urea nitrogen/Creatinine [Mass ratio] 34.0 mg/mg High 10-20 [facility] Basophil percentageOrdered B y: Bennett Troncoso on 02-27-2025 Basophils/100 WBC (Bld) 0.6 % 0-1 [facility] Bilirubin Test strip Ql (U)O rdered By: Bennett Troncoso on 02-27-2025 Bilirubin Ql (U) Negative Negative [facility] Bilirubin, totalOrdered By: Bennett Troncoso on 02-27-2025 Bilirubin [Mass/Vol] 0.47 mg/dL 0.00-1.30 [facility] Blood cultureOrdered By: Brook Troncoso on 02-27-2025 Bacteria identified Cx Nom (Bld) No growth in 5 days. [facility] Bacteria identified Cx Nom (Bld) Negative Abnormal [facility] Brain/Head without Contrasto n 02-27-2025 Brain/Head without Contrast Normal [facility] CBC W/Diff, Automatedon 02-12 Absolute Lymph 1.80 X10 3/uL Normal 0.83-4.51 [facility] Comment on above: Performed By: #### L 100.0100, L503.6005, L500.4050, M200.1000, L300.4310, L300.3900, M100.636 ####[facility] [address] [place], [place], [id number] Absolute Neut 9.0 X10 3/uL High 2.0-7.7 [facility] Comment on above: Performed By: #### L 100.0100, L503.6005, L500.4050, M200.1000, L300.4310, L300.3900, M100.636 ####[facility] [address] [place], [address] Basophils/100 WBC (Bld) 0.6 % Normal 0-1 [facility] Comment on above: Performed By: #### L 100.0100, L503.6005, L500.4050, M200.1000, L300.4310, L300.3900, M100.636 ####[facility] [address] [place], [address] Eosinophils/100 WBC (Bld) 7.1 % High 0-5 [facility] Comment on above: Performed By: #### L 100.0100, L503.6005, L500.4050, M200.1000, L300.4310, L300.3900, M100.636 ####[facility] [address] [place], [address] Erythrocyte distribution width (RBC) [Ratio] 13.8 % Normal 11.6-14.6 [facility] Comment on above: Performed By: #### L 100.0100, L503.6005, L500.4050, M200.1000, L300.4310, L300.3900, M100.636 ####[facility] [address] [place], [address] Hematocrit (Bld) [Volume fraction] 38.8 % Low 40-54 [facility] Comment on above: Performed By: #### L 100.0100, L503.6005, L500.4050, M200.1000, L300.4310, L300.3900, M100.636 ####[facility] [address] [place], [address] Hemoglobin (Bld) [Mass/Vol] 12.3 g/dL Low 13.0-16. 5 [facility] Comment on above: Performed By: #### L 100.0100, L503.6005, L500.4050, M200.1000, L300.4310, L300.3900, M100.636 ####[facility] [address] [place], [address] IG% 0.800 Normal 0.0-0.9 [facility] Comment on above: Result Comment: IG% - Immature Granulocytes (promyelocytes, myelocytes andmetamyelocytes) > 1% indicates that a LEFT SHIFT is Present. Performed By: #### L 100.0100, L503.6005, L500.4050, M200.1000, L300.4310, L300.3900, M100.636 ####[facility] [address] [place], [address] Lymphocytes/100 WBC (Bld) 14.2 % Low 19-41 [facility] Comment on above: Performed By: #### L 100.0100, L503.6005, L500.4050, M200.1000, L300.4310, L300.3900, M100.636 ####[facility] [address] [place], [address] MCH (RBC) [Entitic mass] 27.3 pg Normal 27.0-32.0 [facility] Comment on above: Performed By: #### L 100.0100, L503.6005, L500.4050, M200.1000, L300.4310, L300.3900, M100.636 ####[facility] [address] [place], [address] MCHC (RBC) [Mass/Vol] 31.7 g/dL Low 32-36 [facility] Comment on above: Performed By: #### L 100.0100, L503.6005, L500.4050, M200.1000, L300.4310, L300.3900, M100.636 ####[facility] [address] [place], [address] MCV (RBC) [Entitic vol] 86.0 fL Normal 80-94 [facility] Comment on above: Performed By: #### L 100.0100, L503.6005, L500.4050, M200.1000, L300.4310, L300.3900, M100.636 ####[facility] [address] [place], [address] Monocytes/100 WBC (Bld) 6.1 % Normal 0-10 [facility] Comment on above: Performed By: #### L 100.0100, L503.6005, L500.4050, M200.1000, L300.4310, L300.3900, M100.636 ####[facility] [address] [place], [address] Neutrophils/100 WBC (Bld) 71.2 % High 47-70 [facility] Comment on above: Performed By: #### L 100.0100, L503.6005, L500.4050, M200.1000, L300.4310, L300.3900, M100.636 ####[facility] [address] [place], [address] Nucleated RBC (Bld) [#/Vol] 0 10*3/uL Normal 0-5 [facility] Comment on above: Performed By: #### L 100.0100, L503.6005, L500.4050, M200.1000, L300.4310, L300.3900, M100.636 ####[facility] [address] [place], [address] Platelet mean volume (Bld) [Entitic vol] 9.4 fL Normal 6.2-12.0 [facility] Comment on above: Performed By: #### L 100.0100, L503.6005, L500.4050, M200.1000, L300.4310, L300.3900, M100.636 ####[facility] [address] [place], [address] Platelets (Bld) [#/Vol] 234 10*3/uL Normal 150-450 [facility] Comment on above: Performed By: #### L 100.0100, L503.6005, L500.4050, M200.1000, L300.4310, L300.3900, M100.636 ####[facility] [address] [place], [address] RBC (Bld) [#/Vol] 4.51 10*6/uL Low 4.6-6.2 [facility] Comment on above: Performed By: #### L 100.0100, L503.6005, L500.4050, M200.1000, L300.4310, L300.3900, M100.636 ####[facility] [address] [place], [address] RDW SD 42.7 fl Normal 35.1-43.9 [facility] Comment on above: Performed By: #### L 100.0100, L503.6005, L500.4050, M200.1000, L300.4310, L300.3900, M100.636 ####[facility] [address] [place], [address] WBC (Bld) [#/Vol] 12.7 10*3/uL High 4.4-11.0 [facility] Comment on above: Performed By: #### L 100.0100, L503.6005, L500.4050, M200.1000, L300.4310, L300.3900, M100.636 ####[facility] [address] [place], [address] Carbon dioxide, total [Moles /volume] in Central venous bloodOrdered By: Bennett Troncoso on 02-27-2025 CO2 [Moles/Vol] 27.8 mmol/L 21.0-32.0 [facility] Chest PA and Lateralon 02-27 Chest PA and Lateral Normal [facility] Chloride assayOrdered By: Johnny Troncoso on 02-27-2025 Chloride [Moles/Vol] 98 mmol/L 98-108 [facility] Comprehensive Metabolic Prof ilon 02-27-2025 Albumin [Mass/Vol] 3.9 g/dL Normal 3.4-4.8 [place] Comment on above: Performed By: #### L 100.0100, L503.6005, L500.4050, M200.1000, L300.4310, L300.3900, M100.636 ####[facility] [address] [place], [address] Albumin/Globulin [Mass ratio] 1.4 {ratio} Normal 0.9-2.4 [facility] Comment on above: Performed By: #### L 100.0100, L503.6005, L500.4050, M200.1000, L300.4310, L300.3900, M100.636 ####[facility] [address] [place], [place], [id number] ALK PHOS 107 U/L Normal 40-129 [facility] Comment on above: Performed By: #### L 100.0100, L503.6005, L500.4050, M200.1000, L300.4310, L300.3900, M100.636 ####[facility] [address] [place], [address] ALT [Catalytic activity/Vol] 21 U/L Normal <=46 [facility] Comment on above: Performed By: #### L 100.0100, L503.6005, L500.4050, M200.1000, L300.4310, L300.3900, M100.636 ####[facility] [address] [place], [address] AST [Catalytic activity/Vol] 14 U/L Normal <=37 [facility] Comment on above: Performed By: #### L 100.0100, L503.6005, L500.4050, M200.1000, L300.4310, L300.3900, M100.636 ####[facility] [address] [place], [address] Bilirubin [Mass/Vol] 0.47 mg/dL Normal 0.00-1.30 [facility] Comment on above: Performed By: #### L 100.0100, L503.6005, L500.4050, M200.1000, L300.4310, L300.3900, M100.636 ####[facility] [address] [place], [address] BUN/CRE 34.0 RATIO High 10-20 [facility] Comment on above: Performed By: #### L 100.0100, L503.6005, L500.4050, M200.1000, L300.4310, L300.3900, M100.636 ####[facility] [address] [place], [address] Calcium [Mass/Vol] 9.9 mg/dL Normal 7.6-11.0 [place] Comment on above: Performed By: #### L 100.0100, L503.6005, L500.4050, M200.1000, L300.4310, L300.3900, M100.636 ####[facility] [address] [place], [address] Chloride [Moles/Vol] 98 mmol/L Normal 98-108 [facility] Comment on above: Performed By: #### L 100.0100, L503.6005, L500.4050, M200.1000, L300.4310, L300.3900, M100.636 ####[facility] [address] [place], [address] CO2 [Moles/Vol] 27.8 mmol/L Normal 21.0-32.0 [facility] Comment on above: Performed By: #### L 100.0100, L503.6005, L500.4050, M200.1000, L300.4310, L300.3900, M100.636 ####[facility] [address] [place], [address] Creatinine [Mass/Vol] 1.49 mg/dL High 0.70-1.20 [facility] Comment on above: Performed By: #### L 100.0100, L503.6005, L500.4050, M200.1000, L300.4310, L300.3900, M100.636 ####[facility] [address] [place], [address] ECRCL 54.14 ml/min Normal 50-250 [facility] Comment on above: Performed By: #### L 100.0100, L503.6005, L500.4050, M200.1000, L300.4310, L300.3900, M100.636 ####[facility] [address] [place], [address] GAP 12 Normal 5-15 [facility] Comment on above: Performed By: #### L 100.0100, L503.6005, L500.4050, M200.1000, L300.4310, L300.3900, M100.636 ####[facility] [address] [place], [address] GFR/1.73 sq M.predicted among non-blacks MDRD (S/P/Bld) [Vol rate/Area] 48 mL/min/{1.73_m2} Low >60 [facility] Comment on above: Result Comment: mL/m in/1.73m2 CKD-EPI Creatinine Equation (2020) Performed By: #### L 100.0100, L503.6005, L500.4050, M200.1000, L300.4310, L300.3900, M100.636 ####[facility] [address] [place], [address] Globulin (S) [Mass/Vol] 2.7 g/dL Normal 2.2-4.2 [facility] Comment on above: Performed By: #### L 100.0100, L503.6005, L500.4050, M200.1000, L300.4310, L300.3900, M100.636 ####[facility] [address] [place], [address] Glucose [Mass/Vol] 176 mg/dL High 70-99 [place] Comment on above: Performed By: #### L 100.0100, L503.6005, L500.4050, M200.1000, L300.4310, L300.3900, M100.636 ####[facility] [address] [place], [address] Potassium [Moles/Vol] 4.2 mmol/L Normal 3.3-5.1 [facility] Comment on above: Performed By: #### L 100.0100, L503.6005, L500.4050, M200.1000, L300.4310, L300.3900, M100.636 ####[facility] [address] [place], [address] Sodium [Moles/Vol] 138 mmol/L Normal 133-145 [place] Comment on above: Performed By: #### L 100.0100, L503.6005, L500.4050, M200.1000, L300.4310, L300.3900, M100.636 ####[facility] [address] [place], [address] T PROT 6.6 g/dL Normal 5.9-8.4 [facility] Comment on above: Performed By: #### L 100.0100, L503.6005, L500.4050, M200.1000, L300.4310, L300.3900, M100.636 ####[facility] [address] [place], [place], [id number] Urea nitrogen [Mass/Vol] 51 mg/dL High 4-19 [facility] Comment on above: Performed By: #### L 100.0100, L503.6005, L500.4050, M200.1000, L300.4310, L300.3900, M100.636 ####[facility] [address] [place], [place], [id number] Emergency Department Summary on 02-27-2025 Emergency Department Summary Normal [facility] Eosinophil percentageOrdered By: Bennett Troncoso on 02-27-2025 Eosinophils/100 WBC (Bld) 7.1 % High 0-5 [facility] Erythrocyte distribution wid th ratioOrdered By: Bennett Troncoso on 02-27-2025 Erythrocyte distribution width (RBC) [Ratio] 13.8 % 11.6-14.6 [facility] Erythrocyte distribution wid th standard deviationOrdered By: Bennett Troncoso on 02-27-2025 Erythrocyte distribution width (RBC) [Ratio] 42.7 fl 35.1-43.9 [facility] Foot min 3 Viewson 5 Foot min 3 Views Normal [facility] Glomerular filtration rate ( GFR) estimation/1.73 sq m using serum, plasma, or whole bOrdered By: Bennett Troncoso on 02-27-2025 GFR/1.73 sq M.predicted among non-blacks MDRD (S/P/Bld) [Vol rate/Area] 48 mL/min/{1.73_m2} Low >60 [facility] Hematocrit Auto (Bld) [Volum e fraction]Ordered By: Bennett Troncoso on 02-27-2025 Hematocrit (Bld) [Volume fraction] 38.8 % Low 40-54 [facility] Hemoglobin measurementOrdere d By: Bennett Troncoso on 02-27-2025 Hemoglobin (Bld) [Mass/Vol] 12.3 g/dL Low 13.0-16. 5 [facility] Immature granulocytes/100 WB C Auto (Bld)Ordered By: Bennett Troncoso on 02-27-2025 Immature granulocytes/100 WBC (Bld) 0.800 % 0.0-0.9 [facility] Ketones Test strip Ql (U)Ord ered By: Bennett Troncoso on 02-27-2025 Ketones Ql (U) Negative Negative [facility] Lactic Acidon 02-27-2025 Lactate [Moles/Vol] 1.5 mmol/L Normal 0.0-2.0 [facility] Comment on above: Order Comment: Y Performed By: #### L 100.0100, L503.6005, L500.4050, M200.1000, L300.4310, L300.3900, M100.636 ####[facility] [address] [place], [address] MCV (mean corpuscular volume ) determinationOrdered By: Bennett Troncoso on 02-27-2025 MCV (RBC) [Entitic vol] 86.0 fL 80-94 [facility] Mean corpuscular hemoglobin (MCH) determinationOrdered By: Bennett Troncoso on 02-27-2025 MCH (RBC) [Entitic mass] 27.3 pg 27.0-32.0 [facility] Monocyte percentageOrdered B y: Bennett Troncoso on 02-27-2025 Monocytes/100 WBC (Bld) 6.1 % 0-10 [facility] Mucus LM Ql (Urine sed)Order ed By: Bennett Troncoso on 02-27-2025 Mucus Ql (Urine sed) 0 SEEN /hpf [facility] Neutrophil percentageOrdered By: Bennett Troncoso on 02-27-2025 Neutrophils/100 WBC (Bld) 71.2 % High 47-70 [facility] Nitrite Test strip Ql (U)Ord ered By: Bennett Troncoso on 02-27-2025 Nitrite Ql (U) Negative Negative [facility] No Panel InformationOrdered By: Bennett Troncoso on 08-16-2025 14 U/L <38 [facility] Organism identificationOrder ed By: Bennett Troncoso on 02-27-2025 Microorganism identified Cx Nom (Unsp spec) Negative Abnormal [facility] Partial Thromboplast Timeon 02-27-2025 aPTT Coag (Bld) [Time] 29.4 s Normal 24.1-36.2 [facility] Comment on above: Performed By: #### L 100.0100, L503.6005, L500.4050, M200.1000, L300.4310, L300.3900, M100.636 ####[facility] [address] [place], [address] Platelet countOrdered By: Johnny Troncoso on 02-27-2025 Platelets (Bld) [#/Vol] 234 10*3/uL 150-450 [facility] Potassium measurement (mass/ volume)Ordered By: Bennett Troncoso on 02-27-2025 Potassium (Unsp spec) [Mass/Vol] 4.2 mmol/L 3.3-5.1 [facility] Protein Test strip Ql (U)Ord ered By: Bennett Troncoso on 02-27-2025 Protein Ql (U) 15 mg/dl High Negative [facility] Prothrombin Time w/INRon INR Coag (PPP) [Relative time] 1.2 {INR} Normal [facility] Comment on above: Performed By: #### L 100.0100, L503.6005, L500.4050, M200.1000, L300.4310, L300.3900, M100.636 ####[facility] [address] [place], [address] PT Coag (PPP) [Time] 15.1 s High 11.7-14.9 [facility] Comment on above: Performed By: #### L 100.0100, L503.6005, L500.4050, M200.1000, L300.4310, L300.3900, M100.636 ####[facility] [address] [place], [address] Prothrombin timeOrdered By: Bennett Troncoso on 02-27-2025 PT Coag (PPP) [Time] 15.1 s High 11.7-14.9 [facility] RBC Auto (Bld) [#/Vol]Ordere d By: Bennett Troncoso on 02-27-2025 RBC (Bld) [#/Vol] 4.51 10*6/uL Low 4.6-6.2 [facility] Serum creatinine measurement (mass/volume)Ordered By: Bennett Troncoso on 02-27-2025 Creatinine [Mass/Vol] 1.49 mg/dL High 0.70-1.20 [facility] Serum globulin measurementOr dered By: Bennett Troncoso on 02-27-2025 Globulin (S) [Mass/Vol] 2.7 g/dL 2.2-4.2 [facility] Serum glucose measurement (m ass/volume)Ordered By: Bennett Troncoso on 02-27-2025 Glucose [Mass/Vol] 176 mg/dL High 70-99 [place] Serum or plasma alanine davis otransferase (ALT) measurementOrdered By: Bennett Troncoso on 02-27-2025 ALT [Catalytic activity/Vol] 21 U/L <47 [facility] Serum or plasma albumin antoine urement (mass/volume)Ordered By: Bennett Troncoso on 02-27-2025 Albumin [Mass/Vol] 3.9 g/dL 3.4-4.8 [place] Serum or plasma albumin/glob ulin mass ratioOrdered By: Bennett Troncoso on 02-27-2025 Albumin/Globulin [Mass ratio] 1.4 {ratio} 0.9-2.4 [facility] Serum or plasma alkaline marilin sphatase measurementOrdered By: Bennett Troncoso on 02-27-2025 ALP [Catalytic activity/Vol] 107 U/L 40-129 [facility] Serum or plasma calcium antoine urement (mass/volume)Ordered By: Bennett Troncoso on 02-27-2025 Calcium [Mass/Vol] 9.9 mg/dL 7.6-11.0 [place] Serum or plasma urea nitroge n measurement (mass/volume)Ordered By: Bennett Troncoso on 02-27-2025 Urea nitrogen [Mass/Vol] 51 mg/dL High 4-19 [facility] Sodium levelOrdered By: Teodora mcdowell Troncoso on 02-27-2025 Sodium [Moles/Vol] 138 mmol/L 133-145 [place] Squamous epithelial cells de tection in urine sediment by light microscopyOrdered By: Bennett Karyna on 02-27-2025 Epithelial cells.squamous LM Ql (Urine sed) 0 SEEN /hpf 0-5 [facility] Total proteinOrdered By: Brook riddle Karyna on 02-27-2025 Protein [Mass/Vol] 6.6 g/dL 5.9-8.4 [place] Urinalysis, Completeon 02-27 BACTERIA 0 SEEN Normal None Seen [facility] Comment on above: Order Comment: BRIANNA CTOR TO SPECIFY Performed By: #### L 400.0001, M1.0 ####[facility] [address] [place], [address] EPI,SQUAMOUS 0 SEEN Normal 0-[address] [place] [address] Comment on above: Order Comment: BRIANNA CTOR TO SPECIFY Performed By: #### L 400.0001, M1.0 ####[facility] [address] [place], [address] Mucus Ql (Urine sed) 0 SEEN Normal [facility] Comment on above: Order Comment: BRIANNA CTOR TO SPECIFY Performed By: #### L 400.0001, M100.0 ####[facility] [address] [place], [address] RBC 0 SEEN Normal 0-[address] [place] [address] Comment on above: Order Comment: BRIANNA CTOR TO SPECIFY Performed By: #### L 400.0001, M1.0 ####[facility] [address] [place], [address] WBC 0 SEEN Normal 0-[address] [place] [address] Comment on above: Order Comment: BRIANNA CTOR TO SPECIFY Performed By: #### L 400.0001, M1.0 ####[facility] [address] [place], [address] Urine clarityOrdered By: Brook Troncoso on 02-27-2025 Clarity (U) Clear Clear [facility] Urine color determinationOrd ered By: Bennett Troncoso on 02-27-2025 Color (U) Straw Yellow [facility] Urine cultureOrdered By: Brook Troncoso on 02-27-2025 Bacteria identified Cx Nom (U) Culture exhibits no growth. [facility] Urine glucose detectionOrder ed By: Bennett Troncoso on 02-27-2025 Glucose Ql (U) Normal mg/dl Normal [facility] Urine leukocyte esterase det ection by dipstickOrdered By: Bennett Troncoso on 02-27-2025 Leukocyte esterase Test strip Ql (U) Negative Negative [facility] Urine pHOrdered By: Bennett rosado on 02-27-2025 pH (U) 6.0 [pH] 5.0 - 8.0 [facility] Urine sediment bacteria coun t by microscopy (number/high power field)Ordered By: Bennett Troncoso on 02-27-2025 Bacteria LM.HPF (Urine sed) [#/Area] 0 /[HPF] None Seen [facility] Urine specific gravity measu rementOrdered By: Bennett Troncoso on 02-27-2025 Specific gravity (U) [Rel density] 1.010 1.002-1.03 0 [facility] Urine urobilinogen measureme ntOrdered By: Bennett Troncoso on 02-27-2025 Urobilinogen Ql (U) Normal mg/dl Normal [facility] White blood cell (WBC) count Ordered By: Bennett Troncoso on 02-27-2025 WBC (Bld) [#/Vol] 12.7 10*3/uL High 4.4-11.0 [facility] White blood cell countOrdere d By: Bennett Troncoso on 02-27-2025 White blood cell count 0 SEEN /hpf 0-5 [facility] Anion gap in Serum or Plasma Ordered By: Walter Becker on 02-26-2025 Anion gap [Moles/Vol] 11 mmol/L 5-15 [facility] BUN/creatinine ratioOrdered By: Walter Becker on 02-26-2025 Urea nitrogen/Creatinine [Mass ratio] 31.6 mg/mg High - [facility] Basic Metabolic Profile (BMP )on 02-26-2025 BUN/CRE 31.6 RATIO High - [facility] Comment on above: Order Comment: 215-2 Performed By: #### L 500.2500 ####[facility] [address] [place], [address] Calcium [Mass/Vol] 9.8 mg/dL Normal 7.6-11.0 [place] Comment on above: Order Comment: 215-2 Performed By: #### L 500.2500 ####[facility] [address] [place], [address] Chloride [Moles/Vol] 101 mmol/L Normal 98-108 [facility] Comment on above: Order Comment: 215-2 Performed By: #### L 500.2500 ####[facility] [address] [place], [address] CO2 [Moles/Vol] 27.9 mmol/L Normal 21.0-32.0 [facility] Comment on above: Order Comment: 215-2 Performed By: #### L 500.2500 ####[facility] [address] [place], [address] Creatinine [Mass/Vol] 1.44 mg/dL High 0.70-1.20 [facility] Comment on above: Order Comment: 215-2 Performed By: #### L 500.2500 ####[facility] [address] [place], [address] GAP 11 Normal -15 [facility] Comment on above: Order Comment: 215-2 Performed By: #### L 500.2500 ####[facility] [address] [place], [address] GFR/1.73 sq M.predicted among non-blacks MDRD (S/P/Bld) [Vol rate/Area] 50 mL/min/{1.73_m2} Low >60 [facility] Comment on above: Order Comment: 215-2 Result Comment: mL/m in/1.73m2 CKD-EPI Creatinine Equation (2020) Performed By: #### L 500.2500 ####[facility] [address] [place], [address] Glucose [Mass/Vol] 141 mg/dL High 70-99 [place] Comment on above: Order Comment: 215-2 Performed By: #### L 500.2500 ####[facility] [address] [place], [address] Potassium [Moles/Vol] 3.7 mmol/L Normal 3.3-5.1 [facility] Comment on above: Order Comment: 215-2 Performed By: #### L 500.2500 ####[facility] [address] [place], [address] Sodium [Moles/Vol] 140 mmol/L Normal 133-145 [place] Comment on above: Order Comment: 215-2 Performed By: #### L 500.2500 ####[facility] [address] [place], [address] Urea nitrogen [Mass/Vol] 46 mg/dL High 4-19 [facility] Comment on above: Order Comment: 215-2 Performed By: #### L 500.2500 ####[facility] [address] [place], [address] Carbon dioxide, total [Moles /volume] in Central venous bloodOrdered By: Walter Becker on 02-26-2025 CO2 [Moles/Vol] 27.9 mmol/L 21.0-32.0 [facility] Chloride assayOrdered By: Horner on 02-26-2025 Chloride [Moles/Vol] 101 mmol/L 98-108 [facility] Glomerular filtration rate ( GFR) estimation/1.73 sq m using serum, plasma, or whole bOrdered By: Walter Becker on 02-26-2025 GFR/1.73 sq M.predicted among non-blacks MDRD (S/P/Bld) [Vol rate/Area] 50 mL/min/{1.73_m2} Low >60 [facility] Potassium measurement (mass/ volume)Ordered By: Walter Becker on 02-26-2025 Potassium (Unsp spec) [Mass/Vol] 3.7 mmol/L 3.3-5.1 [facility] Serum creatinine measurement (mass/volume)Ordered By: Walter Becker on 02-26-2025 Creatinine [Mass/Vol] 1.44 mg/dL High 0.70-1.20 [facility] Serum glucose measurement (m ass/volume)Ordered By: Walter Becker on 02-26-2025 Glucose [Mass/Vol] 141 mg/dL High 70-99 [place] Serum or plasma calcium antoine urement (mass/volume)Ordered By: Walter Becker on 02-26-2025 Calcium [Mass/Vol] 9.8 mg/dL 7.6-11.0 [place] Serum or plasma urea nitroge n measurement (mass/volume)Ordered By: Walter Becker on 02-26-2025 Urea nitrogen [Mass/Vol] 46 mg/dL High - [facility] Sodium levelOrdered By: Walter Becker on 02-26-2025 Sodium [Moles/Vol] 140 mmol/L 133-145 [place] Anion gap in Serum or Plasma Ordered By: Walter Becker on 02-25-2025 Anion gap [Moles/Vol] 12 mmol/L - [facility] BUN/creatinine ratioOrdered By: Walter Becker on 02-25-2025 Urea nitrogen/Creatinine [Mass ratio] 30.8 mg/mg High 05-03 [facility] Basic Metabolic Profile (BMP )on 02-25-2025 BUN/CRE 30.8 RATIO High 05-03 [facility] Comment on above: Order Comment: 215.2 Performed By: #### L 500.2500 ####[facility] [address] [place], [address] Calcium [Mass/Vol] 10.0 mg/dL Normal 7.6-11.0 [place] Comment on above: Order Comment: 215.2 Performed By: #### L 500.2500 ####[facility] [address] [place], [address] Chloride [Moles/Vol] 100 mmol/L Normal 98-108 [facility] Comment on above: Order Comment: 215.2 Performed By: #### L 500.2500 ####[facility] [address] [place], [address] CO2 [Moles/Vol] 27.9 mmol/L Normal 21.0-32.0 [facility] Comment on above: Order Comment: 215.2 Performed By: #### L 500.2500 ####[facility] [address] [place], [address] Creatinine [Mass/Vol] 1.31 mg/dL High 0.70-1.20 [facility] Comment on above: Order Comment: 215.2 Performed By: #### L 500.2500 ####[facility] [address] [place], [address] GAP 12 Normal 5-15 [facility] Comment on above: Order Comment: 215.2 Performed By: #### L 500.2500 ####[facility] [address] [place], [address] GFR/1.73 sq M.predicted among non-blacks MDRD (S/P/Bld) [Vol rate/Area] 56 mL/min/{1.73_m2} Low >60 [facility] Comment on above: Order Comment: 215.2 Result Comment: mL/m in/1.73m2 CKD-EPI Creatinine Equation (2020) Performed By: #### L 500.2500 ####[facility] [address] [place], [address] Glucose [Mass/Vol] 158 mg/dL High 70-99 [place] Comment on above: Order Comment: 215.2 Performed By: #### L 500.2500 ####[facility] [address] [place], [address] Potassium [Moles/Vol] 3.8 mmol/L Normal 3.3-5.1 [facility] Comment on above: Order Comment: 215.2 Performed By: #### L 500.2500 ####[facility] [address] [place], [address] Sodium [Moles/Vol] 140 mmol/L Normal 133-145 [place] Comment on above: Order Comment: 215.2 Performed By: #### L 500.2500 ####[facility] [address] [place], [address] Urea nitrogen [Mass/Vol] 40 mg/dL High 4-19 [facility] Comment on above: Order Comment: 215.2 Performed By: #### L 500.2500 ####[facility] [address] [place], [address] Carbon dioxide, total [Moles /volume] in Central venous bloodOrdered By: Walter Becker on 02-25-2025 CO2 [Moles/Vol] 27.9 mmol/L 21.0-32.0 [facility] Chloride assayOrdered By: Horner on 02-25-2025 Chloride [Moles/Vol] 100 mmol/L 98-108 [facility] Glomerular filtration rate ( GFR) estimation/1.73 sq m using serum, plasma, or whole bOrdered By: Walter Becker on 02-25-2025 GFR/1.73 sq M.predicted among non-blacks MDRD (S/P/Bld) [Vol rate/Area] 56 mL/min/{1.73_m2} Low >60 [facility] Potassium measurement (mass/ volume)Ordered By: Walter Becker on 02-25-2025 Potassium (Unsp spec) [Mass/Vol] 3.8 mmol/L 3.3-5.1 [facility] Serum creatinine measurement (mass/volume)Ordered By: Walter Becker on 02-25-2025 Creatinine [Mass/Vol] 1.31 mg/dL High 0.70-1.20 [facility] Serum glucose measurement (m ass/volume)Ordered By: Walter Becker on 02-25-2025 Glucose [Mass/Vol] 158 mg/dL High 70-99 [place] Serum or plasma calcium antoine urement (mass/volume)Ordered By: Walter Becker on 02-25-2025 Calcium [Mass/Vol] 10.0 mg/dL 7.6-11.0 [place] Serum or plasma urea nitroge n measurement (mass/volume)Ordered By: Walter Becker on 02-25-2025 Urea nitrogen [Mass/Vol] 40 mg/dL High 4-19 [facility] Sodium levelOrdered By: Walter Becker on 02-25-2025 Sodium [Moles/Vol] 140 mmol/L 133-145 [place] Anion gap in Serum or Plasma Ordered By: Walter Becker on 02-22-2025 Anion gap [Moles/Vol] 13 mmol/L 5-15 [facility] BUN/creatinine ratioOrdered By: Walter Becker on 02-22-2025 Urea nitrogen/Creatinine [Mass ratio] 28.7 mg/mg High 10- [facility] Basic Metabolic Profile (BMP )on 02-22-2025 BUN/CRE 28.7 RATIO High 10- [facility] Comment on above: Order Comment: 215.2 Performed By: #### L 500.2500 ####[facility] [address] [place], [address] Calcium [Mass/Vol] 9.7 mg/dL Normal 7.6-11.0 [place] Comment on above: Order Comment: 215.2 Performed By: #### L 500.2500 ####[facility] [address] [place], [address] Chloride [Moles/Vol] 100 mmol/L Normal 98-108 [facility] Comment on above: Order Comment: 215.2 Performed By: #### L 500.2500 ####[facility] [address] [place], [address] CO2 [Moles/Vol] 27.5 mmol/L Normal 21.0-32.0 [facility] Comment on above: Order Comment: 215.2 Performed By: #### L 500.2500 ####[facility] [address] [place], [address] Creatinine [Mass/Vol] 1.45 mg/dL High 0.70-1.20 [facility] Comment on above: Order Comment: 215.2 Performed By: #### L 500.2500 ####[facility] [address] [place], [address] GAP 13 Normal 5-15 [facility] Comment on above: Order Comment: 215.2 Performed By: #### L 500.2500 ####[facility] [address] [place], [address] GFR/1.73 sq M.predicted among non-blacks MDRD (S/P/Bld) [Vol rate/Area] 50 mL/min/{1.73_m2} Low >60 [facility] Comment on above: Order Comment: 215.2 Result Comment: mL/m in/1.73m2 CKD-EPI Creatinine Equation (2020) Performed By: #### L 500.2500 ####[facility] [address] [place], [address] Glucose [Mass/Vol] 152 mg/dL High 70-99 [place] Comment on above: Order Comment: 215.2 Performed By: #### L 500.2500 ####[facility] [address] [place], [address] Potassium [Moles/Vol] 3.5 mmol/L Normal 3.3-5.1 [facility] Comment on above: Order Comment: 215.2 Performed By: #### L 500.2500 ####[facility] [address] [place], [address] Sodium [Moles/Vol] 140 mmol/L Normal 133-145 [place] Comment on above: Order Comment: 215.2 Performed By: #### L 500.2500 ####[facility] [address] [place], [address] Urea nitrogen [Mass/Vol] 42 mg/dL High 4-19 [facility] Comment on above: Order Comment: 215.2 Performed By: #### L 500.2500 ####[facility] [address] [place], [address] Carbon dioxide, total [Moles /volume] in Central venous bloodOrdered By: Walter Becker on 02-22-2025 CO2 [Moles/Vol] 27.5 mmol/L 21.0-32.0 [facility] Chloride assayOrdered By: Horner on 02-22-2025 Chloride [Moles/Vol] 100 mmol/L 98-108 [facility] Glomerular filtration rate ( GFR) estimation/1.73 sq m using serum, plasma, or whole bOrdered By: Walter Becker on 02-22-2025 GFR/1.73 sq M.predicted among non-blacks MDRD (S/P/Bld) [Vol rate/Area] 50 mL/min/{1.73_m2} Low >60 [facility] Potassium measurement (mass/ volume)Ordered By: Walter Becker on 02-22-2025 Potassium (Unsp spec) [Mass/Vol] 3.5 mmol/L 3.3-5.1 [facility] [facility] Serum creatinine measurement (mass/volume)Ordered By: Walter Becker on 02-22-2025 Creatinine [Mass/Vol] 1.45 mg/dL High 0.70-1.20 [facility] Serum glucose measurement (m ass/volume)Ordered By: Walter Becker on 02-22-2025 Glucose [Mass/Vol] 152 mg/dL High 70-99 [place] Serum or plasma calcium antoine urement (mass/volume)Ordered By: Walter Becker on 02-22-2025 Calcium [Mass/Vol] 9.7 mg/dL 7.6-11.0 [place] Serum or plasma urea nitroge n measurement (mass/volume)Ordered By: Walter Becker on 02-22-2025 Urea nitrogen [Mass/Vol] 42 mg/dL High 4-19 [facility] Sodium levelOrdered By: Walter Becker on 02-22-2025 Sodium [Moles/Vol] 140 mmol/L 133-145 [place] Anion gap in Serum or Plasma Ordered By: Walter Becker on 02-18-2025 Anion gap [Moles/Vol] 10 mmol/L 5-15 [facility] BUN/creatinine ratioOrdered By: Walter Becker on 02-18-2025 Urea nitrogen/Creatinine [Mass ratio] 29.0 mg/mg High 10-20 [facility] Basic Metabolic Profile (BMP )on 02-18-2025 BUN/CRE 29.0 RATIO High 10-20 [facility] Comment on above: Order Comment: 215-2 Performed By: #### L 500.2500, L100.0500 ####[facility] [address] [place], [address] Calcium [Mass/Vol] 9.0 mg/dL Normal 7.6-11.0 [place] Comment on above: Order Comment: 215-2 Performed By: #### L 500.2500, L100.0500 ####[facility] [address] [place], [address] Chloride [Moles/Vol] 105 mmol/L Normal 98-108 [facility] Comment on above: Order Comment: 215-2 Performed By: #### L 500.2500, L100.0500 ####[facility] [address] [place], [address] CO2 [Moles/Vol] 27.8 mmol/L Normal 21.0-32.0 [facility] Comment on above: Order Comment: 215-2 Performed By: #### L 500.2500, L100.0500 ####[facility] [address] [place], [address] Creatinine [Mass/Vol] 1.42 mg/dL High 0.70-1.20 [facility] Comment on above: Order Comment: 215-2 Performed By: #### L 500.2500, L100.0500 ####[facility] [address] [place], [address] GAP 10 Normal 5-15 [facility] Comment on above: Order Comment: 215-2 Performed By: #### L 500.2500, L100.0500 ####[facility] [address] [place], [address] GFR/1.73 sq M.predicted among non-blacks MDRD (S/P/Bld) [Vol rate/Area] 51 mL/min/{1.73_m2} Low >60 [facility] Comment on above: Order Comment: 215-2 Result Comment: mL/m in/1.73m2 CKD-EPI Creatinine Equation (2020) Performed By: #### L 500.2500, L100.0500 ####[facility] [address] [place], [address] Glucose [Mass/Vol] 140 mg/dL High 70-99 [place] Comment on above: Order Comment: 215-2 Performed By: #### L 500.2500, L100.0500 ####[facility] [address] [place], [address] Potassium [Moles/Vol] 4.0 mmol/L Normal 3.3-5.1 [facility] Comment on above: Order Comment: 215-2 Performed By: #### L 500.2500, L100.0500 ####[facility] [address] [place], [address] Sodium [Moles/Vol] 143 mmol/L Normal 133-145 [place] Comment on above: Order Comment: 215-2 Performed By: #### L 500.2500, L100.0500 ####[facility] [address] [place], [address] Urea nitrogen [Mass/Vol] 41 mg/dL High 4-19 [facility] Comment on above: Order Comment: 215-2 Performed By: #### L 500.2500, L100.0500 ####[facility] [address] [place], [address] CBC-Complete Blood Cnt No Di ffon 02-18-2025 Erythrocyte distribution width (RBC) [Ratio] 13.8 % Normal 11.6-14.6 [facility] Comment on above: Order Comment: 215-2 Performed By: #### L 500.2500, L100.0500 ####[facility] [address] [place], [address] Hematocrit (Bld) [Volume fraction] 30.2 % Low 40-54 [facility] Comment on above: Order Comment: 215-2 Performed By: #### L 500.2500, L100.0500 ####[facility] [address] [place], [address] Hemoglobin (Bld) [Mass/Vol] 9.4 g/dL Low 13.0-16. 5 [facility] Comment on above: Order Comment: 215-2 Performed By: #### L 500.2500, L100.0500 ####[facility] [address] [place], [address] MCH (RBC) [Entitic mass] 27.2 pg Normal 27.0-32.0 [facility] Comment on above: Order Comment: 215-2 Performed By: #### L 500.2500, L100.0500 ####[facility] [address] [place], [address] MCHC (RBC) [Mass/Vol] 31.1 g/dL Low 32-36 [facility] Comment on above: Order Comment: 215-2 Performed By: #### L 500.2500, L100.0500 ####[facility] [address] [place], [address] MCV (RBC) [Entitic vol] 87.3 fL Normal 80-94 [facility] Comment on above: Order Comment: 215-2 Performed By: #### L 500.2500, L100.0500 ####[facility] [address] [place], [address] Platelet mean volume (Bld) [Entitic vol] 9.4 fL Normal 6.2-12.0 [facility] Comment on above: Order Comment: 215-2 Performed By: #### L 500.2500, L100.0500 ####[facility] [address] [place], [address] Platelets (Bld) [#/Vol] 368 10*3/uL Normal 150-450 [facility] Comment on above: Order Comment: 215-2 Performed By: #### L 500.2500, L100.0500 ####[facility] [address] [place], [address] RBC (Bld) [#/Vol] 3.46 10*6/uL Low 4.6-6.2 [facility] Comment on above: Order Comment: 215-2 Performed By: #### L 500.2500, L100.0500 ####[facility] [address] [place], [address] RDW SD 43.8 fl Normal 35.1-43.9 [facility] Comment on above: Order Comment: 215-2 Performed By: #### L 500.2500, L100.0500 ####[facility] [address] [place], [address] WBC (Bld) [#/Vol] 10.0 10*3/uL Normal 4.4-11.0 [facility] Comment on above: Order Comment: 215-2 Performed By: #### L 500.2500, L100.0500 ####[facility] [address] [place], [address] Carbon dioxide, total [Moles /volume] in Central venous bloodOrdered By: Walter Becker on 02-18-2025 CO2 [Moles/Vol] 27.8 mmol/L 21.0-32.0 [facility] Chloride assayOrdered By: Horner on 02-18-2025 Chloride [Moles/Vol] 105 mmol/L 98-108 [facility] Erythrocyte distribution wid th ratioOrdered By: Walter Becker on 02-18-2025 Erythrocyte distribution width (RBC) [Ratio] 13.8 % 11.6-14.6 [facility] Erythrocyte distribution wid th standard deviationOrdered By: Walter Becker on 02-18-2025 Erythrocyte distribution width (RBC) [Ratio] 43.8 fl 35.1-43.9 [facility] Glomerular filtration rate ( GFR) estimation/1.73 sq m using serum, plasma, or whole bOrdered By: Walter Becker on 02-18-2025 GFR/1.73 sq M.predicted among non-blacks MDRD (S/P/Bld) [Vol rate/Area] 51 mL/min/{1.73_m2} Low >60 [facility] Hematocrit Auto (Bld) [Volum e fraction]Ordered By: Walter Becker on 02-18-2025 Hematocrit (Bld) [Volume fraction] 30.2 % Low 40-54 [facility] Hemoglobin measurementOrdere d By: Walter Becker on 02-18-2025 Hemoglobin (Bld) [Mass/Vol] 9.4 g/dL Low 13.0-16. 5 [facility] MCV (mean corpuscular volume ) determinationOrdered By: Walter Becker on 02-18-2025 MCV (RBC) [Entitic vol] 87.3 fL 80-94 [facility] Mean corpuscular hemoglobin (MCH) determinationOrdered By: Walter Becker on 02-18-2025 MCH (RBC) [Entitic mass] 27.2 pg 27.0-32.0 [facility] Platelet countOrdered By: Horner on 02-18-2025 Platelets (Bld) [#/Vol] 368 10*3/uL 150-450 [facility] Potassium measurement (mass/ volume)Ordered By: Walter Becker on 02-18-2025 Potassium (Unsp spec) [Mass/Vol] 4.0 mmol/L 3.3-5.1 [facility] RBC Auto (Bld) [#/Vol]Ordere d By: Walter Becker on 02-18-2025 RBC (Bld) [#/Vol] 3.46 10*6/uL Low 4.6-6.2 [facility] Serum creatinine measurement (mass/volume)Ordered By: Walter Becker on 02-18-2025 Creatinine [Mass/Vol] 1.42 mg/dL High 0.70-1.20 [facility] Serum glucose measurement (m ass/volume)Ordered By: Walter Becker on 02-18-2025 Glucose [Mass/Vol] 140 mg/dL High 70-99 [place] Serum or plasma calcium antoine urement (mass/volume)Ordered By: Walter Becker on 02-18-2025 Calcium [Mass/Vol] 9.0 mg/dL 7.6-11.0 [place] Serum or plasma urea nitroge n measurement (mass/volume)Ordered By: Walter Becker on 02-18-2025 Urea nitrogen [Mass/Vol] 41 mg/dL High 4-19 [facility] Sodium levelOrdered By: Walter Becker on 02-18-2025 Sodium [Moles/Vol] 143 mmol/L 133-145 [place] White blood cell (WBC) count Ordered By: Walter Becker on 02-18-2025 WBC (Bld) [#/Vol] 10.0 10*3/uL 4.4-11.0 [facility] Anion gap in Serum or Plasma Ordered By: Walter Becker on 02-17-2025 Anion gap [Moles/Vol] 12 mmol/L 5-15 [facility] BUN/creatinine ratioOrdered By: Walter Becker on 02-17-2025 Urea nitrogen/Creatinine [Mass ratio] 26.5 mg/mg High 10-20 [facility] Basic Metabolic Profile (BMP )on 02-17-2025 BUN/CRE 26.5 RATIO High 10- [facility] Comment on above: Order Comment: 215-2 Performed By: #### L 100.0500, L500.2500 ####[facility] [address] [place], [address] Calcium [Mass/Vol] 9.1 mg/dL Normal 7.6-11.0 [place] Comment on above: Order Comment: 215-2 Performed By: #### L 100.0500, L500.2500 ####[facility] [address] [place], [address] Chloride [Moles/Vol] 105 mmol/L Normal 98-108 [facility] Comment on above: Order Comment: 215-2 Performed By: #### L 100.0500, L500.2500 ####[facility] [address] [place], [address] CO2 [Moles/Vol] 26.3 mmol/L Normal 21.0-32.0 [facility] Comment on above: Order Comment: 215-2 Performed By: #### L 100.0500, L500.2500 ####[facility] [address] [place], [address] Creatinine [Mass/Vol] 1.48 mg/dL High 0.70-1.20 [facility] Comment on above: Order Comment: 215-2 Performed By: #### L 100.0500, L500.2500 ####[facility] [address] [place], [address] GAP 12 Normal 5-15 [facility] Comment on above: Order Comment: 215-2 Performed By: #### L 100.0500, L500.2500 ####[facility] [address] [place], [address] GFR/1.73 sq M.predicted among non-blacks MDRD (S/P/Bld) [Vol rate/Area] 48 mL/min/{1.73_m2} Low >60 [facility] Comment on above: Order Comment: 215-2 Result Comment: mL/m in/1.73m2 CKD-EPI Creatinine Equation (2020) Performed By: #### L 100.0500, L500.2500 ####[facility] [address] [place], [address] Glucose [Mass/Vol] 132 mg/dL High 70-99 [place] Comment on above: Order Comment: 215-2 Performed By: #### L 100.0500, L500.2500 ####[facility] [address] [place], [address] Potassium [Moles/Vol] 3.7 mmol/L Normal 3.3-5.1 [facility] Comment on above: Order Comment: 215-2 Performed By: #### L 100.0500, L500.2500 ####[facility] [address] [place], [address] Sodium [Moles/Vol] 143 mmol/L Normal 133-145 [place] Comment on above: Order Comment: 215-2 Performed By: #### L 100.0500, L500.2500 ####[facility] [address] [place], [address] Urea nitrogen [Mass/Vol] 39 mg/dL High 4-19 [facility] Comment on above: Order Comment: 215-2 Performed By: #### L 100.0500, L500.2500 ####[facility] [address] [place], [address] CBC-Complete Blood Cnt No Di ffon 02-17-2025 Erythrocyte distribution width (RBC) [Ratio] 13.8 % Normal 11.6-14.6 [facility] Comment on above: Order Comment: 215-2 Performed By: #### L 100.0500, L500.2500 ####[facility] [address] [place], [address] Hematocrit (Bld) [Volume fraction] 30.1 % Low 40-54 [facility] Comment on above: Order Comment: 215-2 Performed By: #### L 100.0500, L500.2500 ####[facility] [address] [place], [address] Hemoglobin (Bld) [Mass/Vol] 9.4 g/dL Low 13.0-16. 5 [facility] Comment on above: Order Comment: 215-2 Performed By: #### L 100.0500, L500.2500 ####[facility] [address] [place], [address] MCH (RBC) [Entitic mass] 27.4 pg Normal 27.0-32.0 [facility] Comment on above: Order Comment: 215-2 Performed By: #### L 100.0500, L500.2500 ####[facility] [address] [place], [address] MCHC (RBC) [Mass/Vol] 31.2 g/dL Low 32-36 [facility] Comment on above: Order Comment: 215-2 Performed By: #### L 100.0500, L500.2500 ####[facility] [address] [place], [address] MCV (RBC) [Entitic vol] 87.8 fL Normal 80-94 [facility] Comment on above: Order Comment: 215-2 Performed By: #### L 100.0500, L500.2500 ####[facility] [address] [place], [address] Platelet mean volume (Bld) [Entitic vol] 9.7 fL Normal 6.2-12.0 [facility] Comment on above: Order Comment: 215-2 Performed By: #### L 100.0500, L500.2500 ####[facility] [address] [place], [address] Platelets (Bld) [#/Vol] 385 10*3/uL Normal 150-450 [facility] Comment on above: Order Comment: 215-2 Performed By: #### L 100.0500, L500.2500 ####[facility] [address] [place], [address] RBC (Bld) [#/Vol] 3.43 10*6/uL Low 4.6-6.2 [facility] Comment on above: Order Comment: 215-2 Performed By: #### L 100.0500, L500.2500 ####[facility] [address] [place], [address] RDW SD 44.2 fl High 35.1-43.9 [facility] Comment on above: Order Comment: 215-2 Performed By: #### L 100.0500, L500.2500 ####[facility] [address] [place], [address] WBC (Bld) [#/Vol] 11.3 10*3/uL High 4.4-11.0 [facility] Comment on above: Order Comment: 215-2 Performed By: #### L 100.0500, L500.2500 ####[facility] [address] [place], [address] Carbon dioxide, total [Moles /volume] in Central venous bloodOrdered By: Walter Becker on 02-17-2025 CO2 [Moles/Vol] 26.3 mmol/L 21.0-32.0 [facility] Chloride assayOrdered By: Horner on 02-17-2025 Chloride [Moles/Vol] 105 mmol/L 98-108 [facility] Erythrocyte distribution wid th ratioOrdered By: Walter Becker on 02-17-2025 Erythrocyte distribution width (RBC) [Ratio] 13.8 % 11.6-14.6 [facility] Erythrocyte distribution wid th standard deviationOrdered By: Walter Becker on 02-17-2025 Erythrocyte distribution width (RBC) [Ratio] 44.2 fl High 35.1-43.9 [facility] Glomerular filtration rate ( GFR) estimation/1.73 sq m using serum, plasma, or whole bOrdered By: Walter Becker on 02-17-2025 GFR/1.73 sq M.predicted among non-blacks MDRD (S/P/Bld) [Vol rate/Area] 48 mL/min/{1.73_m2} Low >60 [facility] Hematocrit Auto (Bld) [Volum e fraction]Ordered By: Walter Becker on 02-17-2025 Hematocrit (Bld) [Volume fraction] 30.1 % Low 40-54 [facility] Hemoglobin measurementOrdere d By: Walter Becker on 02-17-2025 Hemoglobin (Bld) [Mass/Vol] 9.4 g/dL Low 13.0-16. 5 [facility] MCV (mean corpuscular volume ) determinationOrdered By: Walter Becker on 02-17-2025 MCV (RBC) [Entitic vol] 87.8 fL 80-94 [facility] Mean corpuscular hemoglobin (MCH) determinationOrdered By: Walter Becker on 02-17-2025 MCH (RBC) [Entitic mass] 27.4 pg 27.0-32.0 [facility] Platelet countOrdered By: Horner on 02-17-2025 Platelets (Bld) [#/Vol] 385 10*3/uL 150-450 [facility] Potassium measurement (mass/ volume)Ordered By: Walter Becker on 02-17-2025 Potassium (Unsp spec) [Mass/Vol] 3.7 mmol/L 3.3-5.1 [facility] RBC Auto (Bld) [#/Vol]Ordere d By: Walter Becker on 02-17-2025 RBC (Bld) [#/Vol] 3.43 10*6/uL Low 4.6-6.2 [facility] Serum creatinine measurement (mass/volume)Ordered By: Walter Becker on 02-17-2025 Creatinine [Mass/Vol] 1.48 mg/dL High 0.70-1.20 [facility] Serum glucose measurement (m ass/volume)Ordered By: Walter Becker on 02-17-2025 Glucose [Mass/Vol] 132 mg/dL High 70-99 [place] Serum or plasma calcium antoine urement (mass/volume)Ordered By: Walter Becker on 02-17-2025 Calcium [Mass/Vol] 9.1 mg/dL 7.6-11.0 [place] Serum or plasma urea nitroge n measurement (mass/volume)Ordered By: Walter Becker on 02-17-2025 Urea nitrogen [Mass/Vol] 39 mg/dL High 4-19 [facility] Sodium levelOrdered By: Walter Becker on 02-17-2025 Sodium [Moles/Vol] 143 mmol/L 133-145 [place] White blood cell (WBC) count Ordered By: Walter Becker on 02-17-2025 WBC (Bld) [#/Vol] 11.3 10*3/uL High 4.4-11.0 [facility] Anion gap in Serum or Plasma Ordered By: Walter Becker on 02-16-2025 Anion gap [Moles/Vol] 11 mmol/L 5-15 [facility] BUN/creatinine ratioOrdered By: Walter Becker on 02-16-2025 Urea nitrogen/Creatinine [Mass ratio] 25.8 mg/mg High 10-20 [facility] Basic Metabolic Profile (BMP )on 02-16-2025 BUN/CRE 25.8 RATIO High 10- [facility] Comment on above: Order Comment: 215.2 Performed By: #### L 500.2500, L100.0500 ####[facility] [address] [place], [address] Calcium [Mass/Vol] 9.0 mg/dL Normal 7.6-11.0 [place] Comment on above: Order Comment: 215.2 Performed By: #### L 500.2500, L100.0500 ####[facility] [address] [place], [address] Chloride [Moles/Vol] 104 mmol/L Normal 98-108 [facility] Comment on above: Order Comment: 215.2 Performed By: #### L 500.2500, L100.0500 ####[facility] [address] [place], [address] CO2 [Moles/Vol] 26.2 mmol/L Normal 21.0-32.0 [facility] Comment on above: Order Comment: 215.2 Performed By: #### L 500.2500, L100.0500 ####[facility] [address] [place], [address] Creatinine [Mass/Vol] 1.46 mg/dL High 0.70-1.20 [facility] Comment on above: Order Comment: 215.2 Performed By: #### L 500.2500, L100.0500 ####[facility] [address] [place], [address] GAP 11 Normal 5-15 [facility] Comment on above: Order Comment: 215.2 Performed By: #### L 500.2500, L100.0500 ####[facility] [address] [place], [address] GFR/1.73 sq M.predicted among non-blacks MDRD (S/P/Bld) [Vol rate/Area] 49 mL/min/{1.73_m2} Low >60 [facility] Comment on above: Order Comment: 215.2 Result Comment: mL/m in/1.73m2 CKD-EPI Creatinine Equation (2020) Performed By: #### L 500.2500, L100.0500 ####[facility] [address] [place], [address] Glucose [Mass/Vol] 137 mg/dL High 70-99 [place] Comment on above: Order Comment: 215.2 Performed By: #### L 500.2500, L100.0500 ####[facility] [address] [place], [address] Potassium [Moles/Vol] 3.8 mmol/L Normal 3.3-5.1 [facility] Comment on above: Order Comment: 215.2 Performed By: #### L 500.2500, L100.0500 ####[facility] [address] [place], [address] Sodium [Moles/Vol] 142 mmol/L Normal 133-145 [place] Comment on above: Order Comment: 215.2 Performed By: #### L 500.2500, L100.0500 ####[facility] [address] [place], [address] Urea nitrogen [Mass/Vol] 38 mg/dL High 4-19 [facility] Comment on above: Order Comment: 215.2 Performed By: #### L 500.2500, L100.0500 ####[facility] [address] [place], [address] CBC-Complete Blood Cnt No Di ffon 02-16-2025 Erythrocyte distribution width (RBC) [Ratio] 13.6 % Normal 11.6-14.6 [facility] Comment on above: Order Comment: 215.2 Performed By: #### L 500.2500, L100.0500 ####[facility] [address] [place], [address] Hematocrit (Bld) [Volume fraction] 29.5 % Low 40-54 [facility] Comment on above: Order Comment: 215.2 Performed By: #### L 500.2500, L100.0500 ####[facility] [address] [place], [address] Hemoglobin (Bld) [Mass/Vol] 9.3 g/dL Low 13.0-16. 5 [facility] Comment on above: Order Comment: 215.2 Performed By: #### L 500.2500, L100.0500 ####[facility] [address] [place], [address] MCH (RBC) [Entitic mass] 27.1 pg Normal 27.0-32.0 [facility] Comment on above: Order Comment: 215.2 Performed By: #### L 500.2500, L100.0500 ####[facility] [address] [place], [address] MCHC (RBC) [Mass/Vol] 31.5 g/dL Low 32-36 [facility] Comment on above: Order Comment: 215.2 Performed By: #### L 500.2500, L100.0500 ####[facility] [address] [place], [address] MCV (RBC) [Entitic vol] 86.0 fL Normal 80-94 [facility] Comment on above: Order Comment: 215.2 Performed By: #### L 500.2500, L100.0500 ####[facility] [address] [place], [address] Platelet mean volume (Bld) [Entitic vol] 9.4 fL Normal 6.2-12.0 [facility] Comment on above: Order Comment: 215.2 Performed By: #### L 500.2500, L100.0500 ####[facility] [address] [place], [address] Platelets (Bld) [#/Vol] 360 10*3/uL Normal 150-450 [facility] Comment on above: Order Comment: 215.2 Performed By: #### L 500.2500, L100.0500 ####[facility] [address] [place], [address] RBC (Bld) [#/Vol] 3.43 10*6/uL Low 4.6-6.2 [facility] Comment on above: Order Comment: 215.2 Performed By: #### L 500.2500, L100.0500 ####[facility] [address] [place], [address] RDW SD 42.7 fl Normal 35.1-43.9 [facility] Comment on above: Order Comment: 215.2 Performed By: #### L 500.2500, L100.0500 ####[facility] [address] [place], [address] WBC (Bld) [#/Vol] 12.5 10*3/uL High 4.4-11.0 [facility] Comment on above: Order Comment: 215.2 Performed By: #### L 500.2500, L100.0500 ####[facility] [address] [place], [address] Carbon dioxide, total [Moles /volume] in Central venous bloodOrdered By: Walter Becker on 02-16-2025 CO2 [Moles/Vol] 26.2 mmol/L 21.0-32.0 [facility] Chloride assayOrdered By: Horner on 02-16-2025 Chloride [Moles/Vol] 104 mmol/L 98-108 [facility] Erythrocyte distribution wid th ratioOrdered By: Walter Becker on 02-16-2025 Erythrocyte distribution width (RBC) [Ratio] 13.6 % 11.6-14.6 [facility] Erythrocyte distribution wid th standard deviationOrdered By: Walter Becker on 02-16-2025 Erythrocyte distribution width (RBC) [Ratio] 42.7 fl 35.1-43.9 [facility] Glomerular filtration rate ( GFR) estimation/1.73 sq m using serum, plasma, or whole bOrdered By: Walter Becker on 02-16-2025 GFR/1.73 sq M.predicted among non-blacks MDRD (S/P/Bld) [Vol rate/Area] 49 mL/min/{1.73_m2} Low >60 [facility] Hematocrit Auto (Bld) [Volum e fraction]Ordered By: Walter Becker on 02-16-2025 Hematocrit (Bld) [Volume fraction] 29.5 % Low 40-54 [facility] Hemoglobin measurementOrdere d By: Walter Becker on 02-16-2025 Hemoglobin (Bld) [Mass/Vol] 9.3 g/dL Low 13.0-16. 5 [facility] MCV (mean corpuscular volume ) determinationOrdered By: Walter Becker on 02-16-2025 MCV (RBC) [Entitic vol] 86.0 fL 80-94 [facility] Mean corpuscular hemoglobin (MCH) determinationOrdered By: Walter Becker on 02-16-2025 MCH (RBC) [Entitic mass] 27.1 pg 27.0-32.0 [facility] Platelet countOrdered By: Horner on 02-16-2025 Platelets (Bld) [#/Vol] 360 10*3/uL 150-450 [facility] Potassium measurement (mass/ volume)Ordered By: Walter Becker on 02-16-2025 Potassium (Unsp spec) [Mass/Vol] 3.8 mmol/L 3.3-5.1 [facility] RBC Auto (Bld) [#/Vol]Ordere d By: Walter Becker on 02-16-2025 RBC (Bld) [#/Vol] 3.43 10*6/uL Low 4.6-6.2 [facility] Serum creatinine measurement (mass/volume)Ordered By: Walter Becker on 02-16-2025 Creatinine [Mass/Vol] 1.46 mg/dL High 0.70-1.20 [facility] Serum glucose measurement (m ass/volume)Ordered By: Walter Becker on 02-16-2025 Glucose [Mass/Vol] 137 mg/dL High 70-99 [place] Serum or plasma calcium antoine urement (mass/volume)Ordered By: Walter Becker on 02-16-2025 Calcium [Mass/Vol] 9.0 mg/dL 7.6-11.0 [place] Serum or plasma urea nitroge n measurement (mass/volume)Ordered By: Walter Becker on 02-16-2025 Urea nitrogen [Mass/Vol] 38 mg/dL High 4-19 [facility] Sodium levelOrdered By: Walter Becker on 02-16-2025 Sodium [Moles/Vol] 142 mmol/L 133-145 [place] White blood cell (WBC) count Ordered By: Walter Becker on 02-16-2025 WBC (Bld) [#/Vol] 12.5 10*3/uL High 4.4-11.0 [facility] Anion gap in Serum or Plasma Ordered By: Walter Becker on 02-15-2025 Anion gap [Moles/Vol] 12 mmol/L 5-15 [facility] Automated blood erythrocyte countOrdered By: Walter Becker on 02-15-2025 RBC (Bld) [#/Vol] 3.38 10*6/uL Low 4.6-6.2 [facility] Comment on above: Order Comment: 215-2 Performed By: #### L 100.0500, L500.2500 ####[facility] [address] [place], [address] Automated blood hematocrit ( percentage)Ordered By: Walter Becker on 02-15-2025 Hematocrit (Bld) [Volume fraction] 29.3 % Low 40-54 [facility] Comment on above: Order Comment: 215-2 Performed By: #### L 100.0500, L500.2500 ####[facility] [address] [place], [address] BUN/creatinine ratioOrdered By: Walter Becker on 02-15-2025 Urea nitrogen/Creatinine [Mass ratio] 24.7 mg/mg High 10-20 [facility] Basic Metabolic Profile (BMP )on 02-15-2025 BUN/CRE 24.7 RATIO High 10- [facility] Comment on above: Order Comment: 215-2 Performed By: #### L 100.0500, L500.2500 ####[facility] [address] [place], [address] Calcium [Mass/Vol] 9.0 mg/dL Normal 7.6-11.0 [place] Comment on above: Order Comment: 215-2 Performed By: #### L 100.0500, L500.2500 ####[facility] [address] [place], [address] Chloride [Moles/Vol] 105 mmol/L Normal 98-108 [facility] Comment on above: Order Comment: 215-2 Performed By: #### L 100.0500, L500.2500 ####[facility] [address] [place], [address] CO2 [Moles/Vol] 24.2 mmol/L Normal 21.0-32.0 [facility] Comment on above: Order Comment: 215-2 Performed By: #### L 100.0500, L500.2500 ####[facility] [address] [place], [address] Creatinine [Mass/Vol] 1.46 mg/dL High 0.70-1.20 [facility] Comment on above: Order Comment: 215-2 Performed By: #### L 100.0500, L500.2500 ####[facility] [address] [place], [address] GAP 12 Normal 5-15 [facility] Comment on above: Order Comment: 215-2 Performed By: #### L 100.0500, L500.2500 ####[facility] [address] [place], [address] GFR/1.73 sq M.predicted among non-blacks MDRD (S/P/Bld) [Vol rate/Area] 49 mL/min/{1.73_m2} Low >60 [facility] Comment on above: Order Comment: 215-2 Result Comment: mL/m in/1.73m2 CKD-EPI Creatinine Equation (2020) Performed By: #### L 100.0500, L500.2500 ####[facility] [address] [place], [address] Glucose [Mass/Vol] 116 mg/dL High 70-99 [place] Comment on above: Order Comment: 215-2 Performed By: #### L 100.0500, L500.2500 ####[facility] [address] [place], [address] Potassium [Moles/Vol] 3.7 mmol/L Normal 3.3-5.1 [facility] Comment on above: Order Comment: 215-2 Performed By: #### L 100.0500, L500.2500 ####[facility] [address] [place], [address] Sodium [Moles/Vol] 141 mmol/L Normal 133-145 [place] Comment on above: Order Comment: 215-2 Performed By: #### L 100.0500, L500.2500 ####[facility] [address] [place], [address] Urea nitrogen [Mass/Vol] 36 mg/dL High 4-19 [facility] Comment on above: Order Comment: 215-2 Performed By: #### L 100.0500, L500.2500 ####[facility] [address] [place], [address] CBC-Complete Blood Cnt No Di ffon 02-15-2025 MCHC (RBC) [Mass/Vol] 31.7 g/dL Low 32-36 [facility] Comment on above: Order Comment: 215-2 Performed By: #### L 100.0500, L500.2500 ####[facility] [address] [place], [address] Platelet mean volume (Bld) [Entitic vol] 9.6 fL Normal 6.2-12.0 [facility] Comment on above: Order Comment: 215-2 Performed By: #### L 100.0500, L500.2500 ####[facility] [address] [place], [place], [address] RDW SD 42.6 fl Normal 35.1-43.9 [facility] Comment on above: Order Comment: 215-2 Performed By: #### L 100.0500, L500.2500 ####[facility] [address] [place], [place], [id number] Carbon dioxide, total [Moles /volume] in Central venous bloodOrdered By: Walter Becker on 02-15-2025 CO2 [Moles/Vol] 24.2 mmol/L 21.0-32.0 [facility] Chloride assayOrdered By: Horner on 02-15-2025 Chloride [Moles/Vol] 105 mmol/L 98-108 [facility] Erythrocyte distribution wid th ratioOrdered By: Walter Becker on 02-15-2025 Erythrocyte distribution width (RBC) [Ratio] 13.4 % Normal 11.6-14.6 [facility] Comment on above: Order Comment: 215-2 Performed By: #### L 100.0500, L500.2500 ####[facility] [address] [place], [place], [address] Erythrocyte distribution wid th standard deviationOrdered By: Walter Becker on 02-15-2025 Erythrocyte distribution width (RBC) [Ratio] 42.6 fl 35.1-43.9 [facility] Glomerular filtration rate ( GFR) estimation/1.73 sq m using serum, plasma, or whole bOrdered By: Walter Becker on 02-15-2025 GFR/1.73 sq M.predicted among non-blacks MDRD (S/P/Bld) [Vol rate/Area] 49 mL/min/{1.73_m2} Low >60 [facility] Hemoglobin measurementOrdere d By: Walter Becker on 02-15-2025 Hemoglobin (Bld) [Mass/Vol] 9.3 g/dL Low 13.0-16. 5 [facility] Comment on above: Order Comment: 215-2 Performed By: #### L 100.0500, L500.2500 ####[facility] [address] [place], [address] MCV (mean corpuscular volume ) determinationOrdered By: Walter Becker on 02-15-2025 MCV (RBC) [Entitic vol] 86.7 fL Normal 80-94 [facility] Comment on above: Order Comment: 215-2 Performed By: #### L 100.0500, L500.2500 ####[facility] [address] [place], [address] Mean corpuscular hemoglobin (MCH) determinationOrdered By: Walter Becker on 02-15-2025 MCH (RBC) [Entitic mass] 27.5 pg Normal 27.0-32.0 [facility] Comment on above: Order Comment: 215-2 Performed By: #### L 100.0500, L500.2500 ####[facility] [address] [place], [address] Platelet countOrdered By: Horner on 02-15-2025 Platelets (Bld) [#/Vol] 361 10*3/uL Normal 150-450 [facility] Comment on above: Order Comment: 215-2 Performed By: #### L 100.0500, L500.2500 ####[facility] [address] [place], [address] Potassium measurement (mass/ volume)Ordered By: Walter Becker on 02-15-2025 Potassium (Unsp spec) [Mass/Vol] 3.7 mmol/L 3.3-5.1 [facility] Serum creatinine measurement (mass/volume)Ordered By: Walter Becker on 02-15-2025 Creatinine [Mass/Vol] 1.46 mg/dL High 0.70-1.20 [facility] Serum glucose measurement (m ass/volume)Ordered By: Walter Becker on 02-15-2025 Glucose [Mass/Vol] 116 mg/dL High 70-99 [place] Serum or plasma calcium antoine urement (mass/volume)Ordered By: Walter Becker on 02-15-2025 Calcium [Mass/Vol] 9.0 mg/dL 7.6-11.0 [place] Serum or plasma urea nitroge n measurement (mass/volume)Ordered By: Walter Becker on 02-15-2025 Urea nitrogen [Mass/Vol] 36 mg/dL High 4-19 [facility] Sodium levelOrdered By: Walter Becker on 02-15-2025 Sodium [Moles/Vol] 141 mmol/L 133-145 [place] White blood cell (WBC) count Ordered By: Walter Becker on 02-15-2025 WBC (Bld) [#/Vol] 11.7 10*3/uL High 4.4-11.0 [facility] Comment on above: Order Comment: 215-2 Performed By: #### L 100.0500, L500.2500 ####[facility] [address] [place], [place], [id number] Absolute lymphocyte countOrd ered By: Hugo Cervantes on 02-11-2025 Lymphocytes Auto (Unsp spec) [#/Vol] 1.12 10*3/uL 0.83-4.51 [facility] Anion gap in Serum or Plasma Ordered By: Hugo Cervantes on 02-11-2025 Anion gap [Moles/Vol] 14 mmol/L 5-15 [facility] Automated lymphocyte count a s percentage of total leukocytesOrdered By: Hugo Cervantes on 02-11-2025 Lymphocytes/100 WBC Auto (Unsp spec) 9.9 % Low 19-41 [facility] BUN/creatinine ratioOrdered By: Hugo Cervantes on 02-11-2025 Urea nitrogen/Creatinine [Mass ratio] 15.3 mg/mg 10- [facility] Basic Metabolic Profile (BMP )on 02-11-2025 BUN/CRE 15.3 RATIO Normal - [facility] Comment on above: Result Comment: NICOL AKHTAR, SPOKE WITH KT Performed By: #### L 100.0100, L500.2500 ####[facility] [address] [place], [address] Calcium [Mass/Vol] 9.0 mg/dL Normal 7.6-11.0 [place] Comment on above: Result Comment: NICOL AKHTAR, SPOKE WITH KT Performed By: #### L 100.0100, L500.2500 ####[facility] [address] [place], [address] Chloride [Moles/Vol] 109 mmol/L High 98-108 [facility] Comment on above: Result Comment: NICOL AKHTAR, SPOKE WITH KT Performed By: #### L 100.0100, L500.2500 ####[facility] [address] [place], [address] CO2 [Moles/Vol] 22.1 mmol/L Normal 21.0-32.0 [facility] Comment on above: Result Comment: NICOL HERMILO, SPOKE WITH KT Performed By: #### L 100.0100, L500.2500 ####[facility] [address] [place], [address] Creatinine [Mass/Vol] 1.55 mg/dL High 0.70-1.20 [facility] Comment on above: Result Comment: NICOL AKHTAR, SPOKE WITH KT Performed By: #### L 100.0100, L500.2500 ####[facility] [address] [place], [address] ECRCL 52.57 ml/min Normal 50-250 [facility] Comment on above: Performed By: #### L 100.0100, L500.2500 ####[facility] [address] [place], [address] GAP 14 Normal 5-15 [facility] Comment on above: Result Comment: NICOL AKHTAR, SPOKE WITH KT Performed By: #### L 100.0100, L500.2500 ####[facility] [address] [place], [address] GFR/1.73 sq M.predicted among non-blacks MDRD (S/P/Bld) [Vol rate/Area] 46 mL/min/{1.73_m2} Low >60 [facility] Comment on above: Result Comment: mL/m in/1.73m2 CKD-EPI Creatinine Equation (2020) Performed By: #### L 100.0100, L500.2500 ####[facility] [address] [place], [address] Glucose [Mass/Vol] 155 mg/dL High 70-99 [place] Comment on above: Result Comment: NICOL AKHTAR, SPOKE WITH KT Performed By: #### L 100.0100, L500.2500 ####[facility] [address] [place], [address] Potassium [Moles/Vol] 3.7 mmol/L Normal 3.3-5.1 [facility] Comment on above: Result Comment: NICOL AKHTAR, SPOKE WITH KT Performed By: #### L 100.0100, L500.2500 ####[facility] [address] [place], [address] Sodium [Moles/Vol] 145 mmol/L Normal 133-145 [place] Comment on above: Result Comment: NICOL AKHTAR, SPOKE WITH KT Performed By: #### L 100.0100, L500.2500 ####[facility] [address] [place], [address] Urea nitrogen [Mass/Vol] 24 mg/dL High 4-19 [facility] Comment on above: Result Comment: NICOL AKHTAR, SPOKE WITH KT Performed By: #### L 100.0100, L500.2500 ####[facility] [address] [place], [address] Basophil percentageOrdered B y: Hugo Cervantes on 02-11-2025 Basophils/100 WBC (Bld) 0.5 % 0-1 [facility] Bedside Glucoseon 02-11-2025 FINGERSTICK GLU 187 mg/dL High 74-106 [facility] Comment on above: Result Comment: JAZ GEMENT OF PATIENT CARE PER NURSING PROTOCOL Performed By: #### L 501.080 ####[facility] [address] [place], [address] FINGERSTICK GLU 220 mg/dL High 74-106 [facility] Comment on above: Result Comment: JAZ GEMENT OF PATIENT CARE PER NURSING PROTOCOL Performed By: #### L 501.080 ####[facility] [address] [place], [address] FINGERSTICK GLU 137 mg/dL High 74-106 [facility] Comment on above: Result Comment: JAZ GEMENT OF PATIENT CARE PER NURSING PROTOCOL Performed By: #### L 501.080 ####[facility] [address] [place], [address] CBC W/Diff, Automatedon 07-3 -2024 Absolute Lymph 1.12 X10 3/uL Normal 0.83-4.51 [facility] Comment on above: Performed By: #### L 100.0100 ####[facility] [address] [place], [address] Absolute Neut 8.7 X10 3/uL High 2.0-7.7 [facility] Comment on above: Performed By: #### L 100.0100 ####[facility] [address] [place], [address] Basophils/100 WBC (Bld) 0.5 % Normal 0-1 [facility] Comment on above: Performed By: #### L 100.0100 ####[facility] [address] [place], [address] Eosinophils/100 WBC (Bld) 4.1 % Normal 0-5 [facility] Comment on above: Performed By: #### L 100.0100 ####[facility] [address] [place], [address] Erythrocyte distribution width (RBC) [Ratio] 13.7 % Normal 11.6-14.6 [facility] Comment on above: Performed By: #### L 100.0100 ####[facility] [address] [place], [address] Hematocrit (Bld) [Volume fraction] 31.3 % Low 40-54 [facility] Comment on above: Performed By: #### L 100.0100 ####[facility] [address] [place], [address] Hemoglobin (Bld) [Mass/Vol] 9.9 g/dL Low 13.0-16. 5 [facility] Comment on above: Performed By: #### L 100.0100 ####[facility] [address] [place], [address] IG% 2.100 High 0.0-0.9 [facility] Comment on above: Result Comment: IG% - Immature Granulocytes (promyelocytes, myelocytes andmetamyelocytes) > 1% indicates that a LEFT SHIFT is Present. Performed By: #### L 100.0100 ####[facility] [address] [place], [address] Lymphocytes/100 WBC (Bld) 9.9 % Low 19-41 [facility] Comment on above: Performed By: #### L 100.0100 ####[facility] [address] [place], [address] MCH (RBC) [Entitic mass] 27.6 pg Normal 27.0-32.0 [facility] Comment on above: Performed By: #### L 100.0100 ####[facility] [address] [place], [address] MCHC (RBC) [Mass/Vol] 31.6 g/dL Low 32-36 [facility] Comment on above: Performed By: #### L 100.0100 ####[facility] [address] [place], [address] MCV (RBC) [Entitic vol] 87.2 fL Normal 80-94 [facility] Comment on above: Performed By: #### L 100.0100 ####[facility] [address] [place], [address] Monocytes/100 WBC (Bld) 7.1 % Normal 0-10 [facility] Comment on above: Performed By: #### L 100.0100 ####[facility] [address] [place], [address] Neutrophils/100 WBC (Bld) 76.3 % High 47-70 [facility] Comment on above: Performed By: #### L 100.0100 ####[facility] [address] [place], [address] Nucleated RBC (Bld) [#/Vol] 0 10*3/uL Normal 0-5 [facility] Comment on above: Performed By: #### L 100.0100 ####[facility] [address] [place], [address] Platelet mean volume (Bld) [Entitic vol] 9.1 fL Normal 6.2-12.0 [facility] Comment on above: Performed By: #### L 100.0100 ####[facility] [address] [place], [address] Platelets (Bld) [#/Vol] 308 10*3/uL Normal 150-450 [facility] Comment on above: Performed By: #### L 100.0100 ####[facility] [address] [place], [address] RBC (Bld) [#/Vol] 3.59 10*6/uL Low 4.6-6.2 [facility] Comment on above: Performed By: #### L 100.0100 ####[facility] [address] [place], [address] RDW SD 44.1 fl High 35.1-43.9 [facility] Comment on above: Performed By: #### L 100.0100 ####[facility] [address] [place], [address] WBC (Bld) [#/Vol] 11.3 10*3/uL High 4.4-11.0 [facility] Comment on above: Performed By: #### L 100.0100 ####[facility] [address] [place], [address] Absolute Neut Normal 2.0-7.7 [facility] Comment on above: Result Comment: DUPL ICATE Performed By: #### L 100.0100, L500.2500 ####[facility] [address] [place], [address] HCT Normal 40-54 [facility] Comment on above: Result Comment: DUPL ICATE Performed By: #### L 100.0100, L500.2500 ####[facility] [address] [place], [address] HGB Normal 13.0-16.5 [facility] Comment on above: Result Comment: DUPL ICATE Performed By: #### L 100.0100, L500.2500 ####[facility] [address] [place], [address] MCH Normal 27.0-32.0 [facility] Comment on above: Result Comment: DUPL ICATE Performed By: #### L 100.0100, L500.2500 ####[facility] [address] [place], [address] MCHC Normal 32-36 [facility] Comment on above: Result Comment: DUPL ICATE Performed By: #### L 100.0100, L500.2500 ####[facility] [address] [place], [address] MCV Normal 80-94 [facility] Comment on above: Result Comment: DUPL ICATE Performed By: #### L 100.0100, L500.2500 ####[facility] [address] [place], [address] NEUT% Normal 47-70 [facility] Comment on above: Result Comment: DUPL ICATE Performed By: #### L 100.0100, L500.2500 ####[facility] [address] [place], [address] PLT Normal 150-450 [facility] Comment on above: Result Comment: DUPL ICATE Performed By: #### L 100.0100, L500.2500 ####[facility] [address] [place], [address] RBC Normal 4.6-6.2 [facility] Comment on above: Result Comment: DUPL ICATE Performed By: #### L 100.0100, L500.2500 ####[facility] [address] [place], [address] RDW CV Normal 11.6-14.6 [facility] Comment on above: Result Comment: DUPL ICATE Performed By: #### L 100.0100, L500.2500 ####[facility] [address] [place], [address] RDW SD Normal 35.1-43.9 [facility] Comment on above: Result Comment: DUPL ICATE Performed By: #### L 100.0100, L500.2500 ####[facility] [address] [place], [address] WBC Normal 4.4-11.0 [facility] Comment on above: Result Comment: DUPL ICATE Performed By: #### L 100.0100, L500.2500 ####[facility] [address] [place], [address] Carbon dioxide, total [Moles /volume] in Central venous bloodOrdered By: Hugo Cervantes on 02-11-2025 CO2 [Moles/Vol] 22.1 mmol/L 21.0-32.0 [facility] Chloride assayOrdered By: Shala Cervantes on 02-11-2025 Chloride [Moles/Vol] 109 mmol/L High 98-108 [facility] Electrocardiogram reportOrde red By: Júnior Chandra on 02-11-2025 EKG study [facility] Other Phone: Eosinophil percentageOrdered By: Hugo Cervantes on 02-11-2025 Eosinophils/100 WBC (Bld) 4.1 % 0-5 [facility] Erythrocyte distribution wid th ratioOrdered By: Hugo Cervantes on 02-11-2025 Erythrocyte distribution width (RBC) [Ratio] 13.7 % 11.6-14.6 [facility] Erythrocyte distribution wid th standard deviationOrdered By: Hugo Cervantes on 02-11-2025 Erythrocyte distribution width (RBC) [Ratio] 44.1 fl High 35.1-43.9 [facility] Glomerular filtration rate ( GFR) estimation/1.73 sq m using serum, plasma, or whole bOrdered By: Hugo Cervantes on 02-11-2025 GFR/1.73 sq M.predicted among non-blacks MDRD (S/P/Bld) [Vol rate/Area] 46 mL/min/{1.73_m2} Low >60 [facility] Glucose measurement at bedsi deOrdered By: Hugo Cervantes on 02-11-2025 Glucose [Mass/Vol] 187 mg/dL High 74-106 [place] Hematocrit Auto (Bld) [Volum e fraction]Ordered By: Hugo Cervantes on 02-11-2025 Hematocrit (Bld) [Volume fraction] 31.3 % Low 40-54 [facility] Hemoglobin measurementOrdere d By: Hugo Cervantes on 02-11-2025 Hemoglobin (Bld) [Mass/Vol] 9.9 g/dL Low 13.0-16. 5 [facility] Immature granulocytes/100 WB C Auto (Bld)Ordered By: Hugo Cervantes on 02-11-2025 Immature granulocytes/100 WBC (Bld) 2.100 % High 0.0-0.9 [facility] MCV (mean corpuscular volume ) determinationOrdered By: Hugo Cervantes on 02-11-2025 MCV (RBC) [Entitic vol] 87.2 fL 80-94 [facility] Mean corpuscular hemoglobin (MCH) determinationOrdered By: Hugo Cervantes on 02-11-2025 MCH (RBC) [Entitic mass] 27.6 pg 27.0-32.0 [facility] Monocyte percentageOrdered B y: Hugo Cervantes on 02-11-2025 Monocytes/100 WBC (Bld) 7.1 % 0-10 [facility] Neutrophil percentageOrdered By: Hugo Cervantes on 02-11-2025 Neutrophils/100 WBC (Bld) 76.3 % High 47-70 [facility] Platelet countOrdered By: Shala Cervantes on 02-11-2025 Platelets (Bld) [#/Vol] 308 10*3/uL 150-450 [facility] Potassium measurement (mass/ volume)Ordered By: Hugo Cervantes on 02-11-2025 Potassium (Unsp spec) [Mass/Vol] 3.7 mmol/L 3.3-5.1 [facility] RBC Auto (Bld) [#/Vol]Ordere d By: Hugo Cervantes on 02-11-2025 RBC (Bld) [#/Vol] 3.59 10*6/uL Low 4.6-6.2 [facility] Serum creatinine measurement (mass/volume)Ordered By: Hugo Cervantes on 02-11-2025 Creatinine [Mass/Vol] 1.55 mg/dL High 0.70-1.20 [facility] Serum glucose measurement (m ass/volume)Ordered By: Hugo Cervantes on 02-11-2025 Glucose [Mass/Vol] 155 mg/dL High 70-99 [place] Serum or plasma calcium antoine urement (mass/volume)Ordered By: Hugo Cervantes on 02-11-2025 Calcium [Mass/Vol] 9.0 mg/dL 7.6-11.0 [place] Serum or plasma urea nitroge n measurement (mass/volume)Ordered By: Hugo Cervantes on 02-11-2025 Urea nitrogen [Mass/Vol] 24 mg/dL High 4-19 [facility] Sodium levelOrdered By: Tunde Cervantes on 02-11-2025 Sodium [Moles/Vol] 145 mmol/L 133-145 [place] White blood cell (WBC) count Ordered By: Hugo Cervantes on 02-11-2025 WBC (Bld) [#/Vol] 11.3 10*3/uL High 4.4-11.0 [facility] 12 Lead EKGon 02-10-2025 12 Lead EKG Normal [facility] ACT Activated Clotting Timeo n 02-10-2025 ACTk CLOT TIME 205 sec High 74-137 [facility] Comment on above: Performed By: #### L 9100.0100 ####[facility] [address] [place], [address] ACTk CLOT TIME 222 sec High 74-137 [facility] Comment on above: Performed By: #### L 9100.0100 ####[facility] [address] [place], [address] AST(SGOT)on 02-10-2025 AST [Catalytic activity/Vol] 15 U/L Normal <=37 [facility] Comment on above: Performed By: #### L 300.4310, L300.3900, L501.4100 ####[facility] [address] [place], [address] Activated partial thrombopla stin time (aPTT) in platelet poor plasma by coagulation aOrdered By: Aneesh Ac on 02-10-2025 aPTT Coag (PPP) [Time] 33.4 s 24.1-36.2 [facility] Alanine Aminotransferas (SGP T)on 02-10-2025 ALT [Catalytic activity/Vol] 31 U/L Normal <=46 [facility] Comment on above: Performed By: #### L 500.2500, L501.4405, L100.0100 ####[facility] [address] [place], [address] Basic Metabolic Profile (BMP )on 02-10-2025 BUN/CRE 16.2 RATIO Normal 10-20 [facility] Comment on above: Performed By: #### L 500.2500, L501.4405, L100.0100 ####[facility] [address] [place], [address] Calcium [Mass/Vol] 9.1 mg/dL Normal 7.6-11.0 [place] Comment on above: Performed By: #### L 500.2500, L501.4405, L100.0100 ####[facility] [address] [place], [address] Chloride [Moles/Vol] 108 mmol/L Normal 98-108 [facility] Comment on above: Performed By: #### L 500.2500, L501.4405, L100.0100 ####[facility] [address] [place], [address] CO2 [Moles/Vol] 23.0 mmol/L Normal 21.0-32.0 [facility] Comment on above: Performed By: #### L 500.2500, L501.4405, L100.0100 ####[facility] [address] [place], [address] Creatinine [Mass/Vol] 1.72 mg/dL High 0.70-1.20 [facility] Comment on above: Performed By: #### L 500.2500, L501.4405, L100.0100 ####[facility] [address] [place], [address] ECRCL 47.94 ml/min Low 50-250 [facility] Comment on above: Performed By: #### L 500.2500, L501.4405, L100.0100 ####[facility] [address] [place], [address] GAP 12 Normal 5-15 [facility] Comment on above: Performed By: #### L 500.2500, L501.4405, L100.0100 ####[facility] [address] [place], [address] GFR/1.73 sq M.predicted among non-blacks MDRD (S/P/Bld) [Vol rate/Area] 40 mL/min/{1.73_m2} Low >60 [facility] Comment on above: Result Comment: mL/m in/1.73m2 CKD-EPI Creatinine Equation (2020) Performed By: #### L 500.2500, L501.4405, L100.0100 ####[facility] [address] [place], [address] Glucose [Mass/Vol] 161 mg/dL High 70-99 [place] Comment on above: Performed By: #### L 500.2500, L501.4405, L100.0100 ####[facility] [address] [place], [address] Potassium [Moles/Vol] 3.7 mmol/L Normal 3.3-5.1 [facility] Comment on above: Performed By: #### L 500.2500, L501.4405, L100.0100 ####[facility] [address] [place], [address] Sodium [Moles/Vol] 142 mmol/L Normal 133-145 [place] Comment on above: Performed By: #### L 500.2500, L501.4405, L100.0100 ####[facility] [address] [place], [address] Urea nitrogen [Mass/Vol] 28 mg/dL High 4-19 [facility] Comment on above: Performed By: #### L 500.2500, L501.4405, L100.0100 ####[facility] [address] [place], [address] Bedside Glucoseon 02-10-2025 FINGERSTICK GLU 135 mg/dL High 74-106 [facility] Comment on above: Result Comment: JAZ GEMENT OF PATIENT CARE PER NURSING PROTOCOL Performed By: #### L 501.080 ####[facility] [address] [place], [address] FINGERSTICK GLU 132 mg/dL High 74-106 [facility] Comment on above: Result Comment: JAZ GEMENT OF PATIENT CARE PER NURSING PROTOCOL Performed By: #### L 501.080 ####[facility] [address] [place], [address] FINGERSTICK GLU 156 mg/dL High 74-106 [facility] Comment on above: Result Comment: JAZ GEMENT OF PATIENT CARE PER NURSING PROTOCOL Performed By: #### L 501.080 ####[facility] [address] [place], [address] FINGERSTICK GLU 156 mg/dL High 74-106 [facility] Comment on above: Result Comment: JAZ GEMENT OF PATIENT CARE PER NURSING PROTOCOL Performed By: #### L 501.080 ####[facility] [address] [place], [address] FINGERSTICK GLU 153 mg/dL High 74-106 [facility] Comment on above: Result Comment: JAZ GEMENT OF PATIENT CARE PER NURSING PROTOCOL Performed By: #### L 501.080 ####[facility] [address] [place], [address] CBC W/Diff, Automatedon 07-3 0-2025 Absolute Lymph 1.25 X10 3/uL Normal 0.83-4.51 [facility] Comment on above: Performed By: #### L 500.2500, L501.4405, L100.0100 ####[facility] [address] [place], [address] Absolute Neut 8.3 X10 3/uL High 2.0-7.7 [facility] Comment on above: Performed By: #### L 500.2500, L501.4405, L100.0100 ####[facility] [address] [place], [address] Basophils/100 WBC (Bld) 0.4 % Normal 0-1 [facility] Comment on above: Performed By: #### L 500.2500, L501.4405, L100.0100 ####[facility] [address] [place], [address] Eosinophils/100 WBC (Bld) 4.7 % Normal 0-5 [facility] Comment on above: Performed By: #### L 500.2500, L501.4405, L100.0100 ####[facility] [address] [place], [address] Erythrocyte distribution width (RBC) [Ratio] 13.7 % Normal 11.6-14.6 [facility] Comment on above: Performed By: #### L 500.2500, L501.4405, L100.0100 ####[facility] [address] [place], [address] Hematocrit (Bld) [Volume fraction] 30.5 % Low 40-54 [facility] Comment on above: Performed By: #### L 500.2500, L501.4405, L100.0100 ####[facility] [address] [place], [address] Hemoglobin (Bld) [Mass/Vol] 9.7 g/dL Low 13.0-16. 5 [facility] Comment on above: Performed By: #### L 500.2500, L501.4405, L100.0100 ####[facility] [address] [place], [address] IG% 2.300 High 0.0-0.9 [facility] Comment on above: Result Comment: IG% - Immature Granulocytes (promyelocytes, myelocytes andmetamyelocytes) > 1% indicates that a LEFT SHIFT is Present. Performed By: #### L 500.2500, L501.4405, L100.0100 ####[facility] [address] [place], [address] Lymphocytes/100 WBC (Bld) 11.0 % Low 19-41 [facility] Comment on above: Performed By: #### L 500.2500, L501.4405, L100.0100 ####[facility] [address] [place], [address] MCH (RBC) [Entitic mass] 27.6 pg Normal 27.0-32.0 [facility] Comment on above: Performed By: #### L 500.2500, L501.4405, L100.0100 ####[facility] [address] [place], [address] MCHC (RBC) [Mass/Vol] 31.8 g/dL Low 32-36 [facility] Comment on above: Performed By: #### L 500.2500, L501.4405, L100.0100 ####[facility] [address] [place], [address] MCV (RBC) [Entitic vol] 86.9 fL Normal 80-94 [facility] Comment on above: Performed By: #### L 500.2500, L501.4405, L100.0100 ####[facility] [address] [place], [address] Monocytes/100 WBC (Bld) 8.5 % Normal 0-10 [facility] Comment on above: Performed By: #### L 500.2500, L501.4405, L100.0100 ####[facility] [address] [place], [address] Neutrophils/100 WBC (Bld) 73.1 % High 47-70 [facility] Comment on above: Performed By: #### L 500.2500, L501.4405, L100.0100 ####[facility] [address] [place], [address] Nucleated RBC (Bld) [#/Vol] 0 10*3/uL Normal 0-5 [facility] Comment on above: Performed By: #### L 500.2500, L501.4405, L100.0100 ####[facility] [address] [place], [address] Platelet mean volume (Bld) [Entitic vol] 9.1 fL Normal 6.2-12.0 [facility] Comment on above: Performed By: #### L 500.2500, L501.4405, L100.0100 ####[facility] [address] [place], [address] Platelets (Bld) [#/Vol] 314 10*3/uL Normal 150-450 [facility] Comment on above: Performed By: #### L 500.2500, L501.4405, L100.0100 ####[facility] [address] [place], [address] RBC (Bld) [#/Vol] 3.51 10*6/uL Low 4.6-6.2 [facility] Comment on above: Performed By: #### L 500.2500, L501.4405, L100.0100 ####[facility] [address] [place], [address] RDW SD 43.9 fl Normal 35.1-43.9 [facility] Comment on above: Performed By: #### L 500.2500, L501.4405, L100.0100 ####[facility] [address] [place], [address] WBC (Bld) [#/Vol] 11.4 10*3/uL High 4.4-11.0 [facility] Comment on above: Performed By: #### L 500.2500, L501.4405, L100.0100 ####[facility] [address] [place], [address] Culture, Anaerobic Any Sourc ace 02-10-2025 CUAN UNK UNK Bone 5th left Metatarsal toe No anaerobic bacteria isolated. Normal [facility] Comment on above: Performed By: #### M 100.3000, M100.2000, M600.2200, M100.4001, M600.2000 ####[facility] [address] [place], [address] CUAN UNK UNK Clearance Fragment left 5th metatarsal toe No growth in 5 days. Normal [facility] Comment on above: Performed By: #### M 600.2000, M100.2000, M600.2200, M100.3000, M100.4001 ####[facility] [address] [place], [address] No Panel InformationOrdered By: Aneesh Ac on 02-10-2025 15 U/L <38 [facility] Operative Reporton Operative Report Normal [facility] Partial Thromboplast Timeon 02-10-2025 aPTT Coag (Bld) [Time] 33.4 s Normal 24.1-36.2 [facility] Comment on above: Performed By: #### L 300.4310, L300.3900, L501.4100 ####[facility] [address] [place], [address] Prothrombin Time w/INRon INR Coag (PPP) [Relative time] 1.3 {INR} Normal [facility] Comment on above: Performed By: #### L 300.4310, L300.3900, L501.4100 ####[facility] [address] [place], [address] PT Coag (PPP) [Time] 16.2 s High 11.7-14.9 [facility] Comment on above: Performed By: #### L 300.4310, L300.3900, L501.4100 ####[facility] [address] [place], [address] Prothrombin timeOrdered By: Aneesh Ac on 02-10-2025 PT Coag (PPP) [Time] 16.2 s High 11.7-14.9 [facility] Serum or plasma alanine davis otransferase (ALT) measurementOrdered By: Aneesh Ac on 02-10-2025 ALT [Catalytic activity/Vol] 31 U/L <47 [facility] Surgical pathology reportOrd ered By: Umm Garcia on 02-10-2025 Surgical pathology study [facility] Trough vancomycin levelOrder ed By: Hugo Cervantes on 02-10-2025 Vancomycin trough [Mass/Vol] 16.6 ug/mL High 5.0-15.0 [facility] Vancomycin, Trough Levelon 0 02-10-2025 VANCO, TROUGH 16.6 ug/mL High 5.0-15.0 [facility] Comment on above: Order Comment: Comme nts: Trough to be drawn 30 mins prior to scheduled [id number] Result Comment: Jalen mmended goal trough ranges [...] therapy recommended for serious lifethreatening infections include:- Voxqwbecef-Getfstvqahak-Fkxlasowo (Ventilator/Healtcare Associated)-SepsisPLEASE CONTACT PHARMACY SERVICES (#2886) FOR INTERPRETATIONOF RESULTS. Performed By: #### L 501.8820 ####[facility] [address] [place], [address] Basic Metabolic Profile (BMP )on 02-09-2025 BUN/CRE 14.2 RATIO Normal 10-20 [facility] Comment on above: Performed By: #### L 100.0100, L500.2500 ####[facility] [address] [place], [address] Calcium [Mass/Vol] 9.0 mg/dL Normal 7.6-11.0 [place] Comment on above: Performed By: #### L 100.0100, L500.2500 ####[facility] [address] [place], [address] Chloride [Moles/Vol] 110 mmol/L High 98-108 [facility] Comment on above: Performed By: #### L 100.0100, L500.2500 ####[facility] [address] [place], [address] CO2 [Moles/Vol] 21.6 mmol/L Normal 21.0-32.0 [facility] Comment on above: Performed By: #### L 100.0100, L500.2500 ####[facility] [address] [place], [address] Creatinine [Mass/Vol] 1.70 mg/dL High 0.70-1.20 [facility] Comment on above: Performed By: #### L 100.0100, L500.2500 ####[facility] [address] [place], [address] ECRCL 61.27 ml/min Normal 50-250 [facility] Comment on above: Performed By: #### L 100.0100, L500.2500 ####[facility] [address] [place], [address] GAP 12 Normal 5-15 [facility] Comment on above: Performed By: #### L 100.0100, L500.2500 ####[facility] [address] [place], [address] GFR/1.73 sq M.predicted among non-blacks MDRD (S/P/Bld) [Vol rate/Area] 41 mL/min/{1.73_m2} Low >60 [facility] Comment on above: Result Comment: mL/m in/1.73m2 CKD-EPI Creatinine Equation (2020) Performed By: #### L 100.0100, L500.2500 ####[facility] [address] [place], [address] Glucose [Mass/Vol] 142 mg/dL High 70-99 [facility] Comment on above: Performed By: #### L 100.0100, L500.2500 ####[facility] [address] [place], [address] Potassium [Moles/Vol] 4.1 mmol/L Normal 3.3-5.1 [facility] Comment on above: Result Comment: Hemo lysis present, Results??could be affected.?? Performed By: #### L 100.0100, L500.2500 ####[facility] [address] [place], [address] Sodium [Moles/Vol] 143 mmol/L Normal 133-145 [facility] Comment on above: Performed By: #### L 100.0100, L500.2500 ####[facility] [address] [place], [address] Urea nitrogen [Mass/Vol] 24 mg/dL High 4-19 [facility] Comment on above: Performed By: #### L 100.0100, L500.2500 ####[facility] [address] [place], [address] Bedside Glucoseon 02-09-2025 FINGERSTICK GLU 140 mg/dL High 74-106 [facility] Comment on above: Result Comment: JAZ GEMENT OF PATIENT CARE PER NURSING PROTOCOL Performed By: #### L 501.080 ####[facility] [address] [place], [address] FINGERSTICK GLU 145 mg/dL High 74-106 [facility] Comment on above: Result Comment: JAZ GEMENT OF PATIENT CARE PER NURSING PROTOCOL Performed By: #### L 501.080 ####[facility] [address] [place], [address] FINGERSTICK GLU 127 mg/dL High 74-106 [facility] Comment on above: Result Comment: JAZ GEMENT OF PATIENT CARE PER NURSING PROTOCOL Performed By: #### L 501.080 ####[facility] [address] [place], [address] Blood polychromasia detectio n by light microscopyOrdered By: Hugo Cervantes on 02-09-2025 Polychromasia LM Ql (Bld) 1+ [facility] CBC W/Diff, Automatedon 01-13 POLYCHROMASIA 1+ Normal [facility] Comment on above: Performed By: #### L 100.0100, L500.2500 ####[facility] [address] [place], [address] Wound Cultureon 02-09-2025 WC Normal [facility] Comment on above: Performed By: #### M 100.3000, M100.2000, M600.2200, M100.4001, M600.2000 ####[facility] [address] [place], [address] Assessment of wrist artery p atency prior to arterial punctureOrdered By: Hugo Cervantes on 02-08-2025 Arterial patency Wrist artery --pre arterial puncture Positive [facility] Basic Metabolic Profile (BMP )on 02-08-2025 BUN/CRE 19.1 RATIO Normal 10-20 [facility] Comment on above: Performed By: #### L 100.0100, L500.2500 ####[facility] [address] [place], [address] Calcium [Mass/Vol] 8.9 mg/dL Normal 7.6-11.0 [facility] Comment on above: Performed By: #### L 100.0100, L500.2500 ####[facility] [address] [place], [address] Chloride [Moles/Vol] 110 mmol/L High 98-108 [facility] Comment on above: Performed By: #### L 100.0100, L500.2500 ####[facility] [address] [place], [address] CO2 [Moles/Vol] 24.2 mmol/L Normal 21.0-32.0 [facility] Comment on above: Performed By: #### L 100.0100, L500.2500 ####[facility] [address] [place], [address] Creatinine [Mass/Vol] 1.71 mg/dL High 0.70-1.20 [facility] Comment on above: Performed By: #### L 100.0100, L500.2500 ####[facility] [address] [place], [address] ECRCL 48.63 ml/min Low 50-250 [facility] Comment on above: Performed By: #### L 100.0100, L500.2500 ####[facility] [address] [place], [address] GAP 9 Normal 5-15 [facility] Comment on above: Performed By: #### L 100.0100, L500.2500 ####[facility] [address] [place], [address] GFR/1.73 sq M.predicted among non-blacks MDRD (S/P/Bld) [Vol rate/Area] 41 mL/min/{1.73_m2} Low >60 [facility] Comment on above: Result Comment: mL/m in/1.73m2 CKD-EPI Creatinine Equation (2020) Performed By: #### L 100.0100, L500.2500 ####[facility] [address] [place], [address] Glucose [Mass/Vol] 156 mg/dL High 70-99 [facility] Comment on above: Performed By: #### L 100.0100, L500.2500 ####[facility] [address] [place], [address] Potassium [Moles/Vol] 3.8 mmol/L Normal 3.3-5.1 [facility] Comment on above: Performed By: #### L 100.0100, L500.2500 ####[facility] [address] [place], [address] Sodium [Moles/Vol] 143 mmol/L Normal 133-145 [facility] Comment on above: Performed By: #### L 100.0100, L500.2500 ####[facility] [address] [place], [address] Urea nitrogen [Mass/Vol] 33 mg/dL High 4-19 [facility] Comment on above: Performed By: #### L 100.0100, L500.2500 ####[facility] [address] [place], [address] Bedside Glucoseon 02-08-2025 FINGERSTICK GLU 135 mg/dL High 74-106 [facility] Comment on above: Result Comment: JAZ BRANDON OF PATIENT CARE PER NURSING PROTOCOL Performed By: #### L 501.080 ####[facility] [address] [place], [address] FINGERSTICK GLU 141 mg/dL High 74-106 [facility] Comment on above: Result Comment: JAZ GEMENT OF PATIENT CARE PER NURSING PROTOCOL Performed By: #### L 501.080 ####[facility] [address] [place], [address] FINGERSTICK GLU 145 mg/dL High 74-106 [facility] Comment on above: Result Comment: JAZ GEMENT OF PATIENT CARE PER NURSING PROTOCOL Performed By: #### L 501.080 ####[facility] [address] [place], [address] Blood Gases by [facility] 025 EUGENIO TEST Positive Normal [facility] Comment on above: Performed By: #### L 9000.0800 ####[facility] [address] [place], [address] Base excess Calc (Bld) [Moles/Vol] 5 mmol/L High -2 to +2 [facility] Comment on above: Performed By: #### L 9000.0800 ####[facility] [address] [place], [address] Blood Gas Type ART Normal [facility] Comment on above: Performed By: #### L 9000.0800 ####[facility] [address] [place], [address] CO2 [Moles/Vol] 30 mmol/L Normal [facility] Comment on above: Performed By: #### L 9000.0800 ####[facility] [address] [place], [address] FI02 2.0 Normal [facility] Comment on above: Performed By: #### L 9000.0800 ####[facility] [address] [place], [address] HCO3 (Bld) [Moles/Vol] 28.8 mmol/L High 22-26 [facility] Comment on above: Performed By: #### L 9000.0800 ####[facility] [address] [place], [address] Mode Not entered Normal [facility] Comment on above: Performed By: #### L 9000.0800 ####[facility] [address] [place], [address] O2 Delivery Dev Cannula Normal [facility] Comment on above: Performed By: #### L 9000.0800 ####[facility] [address] [place], [address] pCO2 42.1 mmHg Normal 35-45 [facility] Comment on above: Performed By: #### L 9000.0800 ####[facility] [address] [place], [address] pH (Bld) 7.44 [pH] Normal 7.35-7.45 [facility] Comment on above: Performed By: #### L 9000.0800 ####[facility] [address] [place], [address] PO2 82 mmHG Normal 75-100 [facility] Comment on above: Performed By: #### L 9000.0800 ####[facility] [address] [place], [address] SITE R Radial Normal [facility] Comment on above: Performed By: #### L 9000.0800 ####[facility] [address] [place], [address] SO2 96 Normal 95-99 [facility] Comment on above: Performed By: #### L 9000.0800 ####[facility] [address] [place], [address] Blood base excess determinat ionOrdered By: Hugo Cervantes on 02-08-2025 Base excess Calc (BldV) [Moles/Vol] 5 mmol/L High -2-2 [facility] Blood bicarbonate measuremen tOrdered By: Hugo Cervantes on 02-08-2025 HCO3 (Bld) [Moles/Vol] 28.8 mmol/L High 22-26 [facility] CBC W/Diff, Automatedon 01-13 Absolute Lymph 1.25 X10 3/uL Normal 0.83-4.51 [facility] Comment on above: Performed By: #### L 100.0100, L500.2500 ####[facility] [address] [place], [address] Absolute Neut 7.9 X10 3/uL High 2.0-7.7 [facility] Comment on above: Performed By: #### L 100.0100, L500.2500 ####[facility] [address] [place], [address] Basophils/100 WBC (Bld) 0.3 % Normal 0-1 [facility] Comment on above: Performed By: #### L 100.0100, L500.2500 ####[facility] [address] [place], [address] Eosinophils/100 WBC (Bld) 4.6 % Normal 0-5 [facility] Comment on above: Performed By: #### L 100.0100, L500.2500 ####[facility] [address] [place], [address] Erythrocyte distribution width (RBC) [Ratio] 13.7 % Normal 11.6-14.6 [facility] Comment on above: Performed By: #### L 100.0100, L500.2500 ####[facility] [address] [place], [address] Hematocrit (Bld) [Volume fraction] 29.3 % Low 40-54 [facility] Comment on above: Performed By: #### L 100.0100, L500.2500 ####[facility] [address] [place], [address] Hemoglobin (Bld) [Mass/Vol] 9.6 g/dL Low 13.0-16. 5 [facility] Comment on above: Performed By: #### L 100.0100, L500.2500 ####[facility] [address] [place], [address] IG% 1.400 High 0.0-0.9 [facility] Comment on above: Result Comment: IG% - Immature Granulocytes (promyelocytes, myelocytes andmetamyelocytes) > 1% indicates that a LEFT SHIFT is Present. Performed By: #### L 100.0100, L500.2500 ####[facility] [address] [place], [address] Lymphocytes/100 WBC (Bld) 11.5 % Low 19-41 [facility] Comment on above: Performed By: #### L 100.0100, L500.2500 ####[facility] [address] [place], [address] MCH (RBC) [Entitic mass] 27.8 pg Normal 27.0-32.0 [facility] Comment on above: Performed By: #### L 100.0100, L500.2500 ####[facility] [address] [place], [address] MCHC (RBC) [Mass/Vol] 32.8 g/dL Normal 32-36 [facility] Comment on above: Performed By: #### L 100.0100, L500.2500 ####[facility] [address] [place], [address] MCV (RBC) [Entitic vol] 84.9 fL Normal 80-94 [facility] Comment on above: Performed By: #### L 100.0100, L500.2500 ####[facility] [address] [place], [address] Monocytes/100 WBC (Bld) 9.5 % Normal 0-10 [facility] Comment on above: Performed By: #### L 100.0100, L500.2500 ####[facility] [address] [place], [address] Neutrophils/100 WBC (Bld) 72.7 % High 47-70 [facility] Comment on above: Performed By: #### L 100.0100, L500.2500 ####[facility] [address] [place], [address] Nucleated RBC (Bld) [#/Vol] 0 10*3/uL Normal 0-5 [facility] Comment on above: Performed By: #### L 100.0100, L500.2500 ####[facility] [address] [place], [address] Platelet mean volume (Bld) [Entitic vol] 8.8 fL Normal 6.2-12.0 [facility] Comment on above: Performed By: #### L 100.0100, L500.2500 ####[facility] [address] [place], [address] Platelets (Bld) [#/Vol] 263 10*3/uL Normal 150-450 [facility] Comment on above: Performed By: #### L 100.0100, L500.2500 ####[facility] [address] [place], [address] RBC (Bld) [#/Vol] 3.45 10*6/uL Low 4.6-6.2 [facility] Comment on above: Performed By: #### L 100.0100, L500.2500 ####[facility] [address] [place], [address] RDW SD 42.7 fl Normal 35.1-43.9 [facility] Comment on above: Performed By: #### L 100.0100, L500.2500 ####[facility] [address] [place], [address] WBC (Bld) [#/Vol] 10.9 10*3/uL Normal 4.4-11.0 [facility] Comment on above: Performed By: #### L 100.0100, L500.2500 ####[facility] [address] [place], [address] Consultation - Infectious Dx on 02-08-2025 Consultation - Infectious Dx Normal [facility] Culture, Blood (WB)on 2024 CUB Blood cultures x2, from two different sites No growth in 5 days. Normal [facility] Comment on above: Performed By: #### M 200.1000, L100.0100, L300.3900, L300.4310, L503.6005, L500.4050 ####[facility] [address] [place], [place], [id number] Measurement, pHOrdered By: Khris Cervantes on 02-08-2025 pH (Unsp spec) 7.44 [pH] 7.35-7.45 [facility] No Panel InformationOrdered By: Hugo Cervantes on 02-08-2025 ART [facility] R Radial [facility] Not entered [facility] Cannula [facility] Total carbon dioxide measure mentOrdered By: Hugo Cervantes on 02-08-2025 CO2 [Moles/Vol] 30 mmol/L [facility] Vancomycin, Trough Levelon 0 02-08-2025 VANCO, TROUGH 20.6 ug/mL High 5.0-15.0 [facility] Comment on above: Order Comment: Comme nts: DRAW 30 MIN PRIOR TO [id number] Result Comment: Jalen mmended goal trough ranges [...] therapy recommended for serious lifethreatening infections include:- Ipykdpopcp-Ovzpjeffwbyu-Pjzmtjdpl (Ventilator/Healtcare Associated)-SepsisPLEASE CONTACT PHARMACY SERVICES (#0524) FOR INTERPRETATIONOF RESULTS. Performed By: #### L 501.8820 ####[facility] [address] [place], [address] Basic Metabolic Profile (BMP )on 02-07-2025 BUN/CRE 22.7 RATIO High 10-20 [facility] Comment on above: Performed By: #### L 100.0100, L500.2500 ####[facility] [address] [place], [address] Calcium [Mass/Vol] 8.7 mg/dL Normal 7.6-11.0 [place] Comment on above: Performed By: #### L 100.0100, L500.2500 ####[facility] [address] [place], [address] Chloride [Moles/Vol] 109 mmol/L High 98-108 [facility] Comment on above: Performed By: #### L 100.0100, L500.2500 ####[facility] [address] [place], [address] CO2 [Moles/Vol] 22.6 mmol/L Normal 21.0-32.0 [facility] Comment on above: Performed By: #### L 100.0100, L500.2500 ####[facility] [address] [place], [address] Creatinine [Mass/Vol] 1.75 mg/dL High 0.70-1.20 [facility] Comment on above: Performed By: #### L 100.0100, L500.2500 ####[facility] [address] [place], [address] ECRCL 47.38 ml/min Low 50-250 [facility] Comment on above: Performed By: #### L 100.0100, L500.2500 ####[facility] [address] [place], [address] GAP 10 Normal 5-15 [facility] Comment on above: Performed By: #### L 100.0100, L500.2500 ####[facility] [address] [place], [address] GFR/1.73 sq M.predicted among non-blacks MDRD (S/P/Bld) [Vol rate/Area] 40 mL/min/{1.73_m2} Low >60 [facility] Comment on above: Result Comment: mL/m in/1.73m2 CKD-EPI Creatinine Equation (2020) Performed By: #### L 100.0100, L500.2500 ####[facility] [address] [place], [address] Glucose [Mass/Vol] 150 mg/dL High 70-99 [place] Comment on above: Performed By: #### L 100.0100, L500.2500 ####[facility] [address] [place], [address] Potassium [Moles/Vol] 3.8 mmol/L Normal 3.3-5.1 [facility] Comment on above: Performed By: #### L 100.0100, L500.2500 ####[facility] [address] [place], [address] Sodium [Moles/Vol] 142 mmol/L Normal 133-145 [place] Comment on above: Performed By: #### L 100.0100, L500.2500 ####[facility] [address] [place], [address] Urea nitrogen [Mass/Vol] 40 mg/dL High 4-19 [facility] Comment on above: Performed By: #### L 100.0100, L500.2500 ####[facility] [address] [place], [address] Bedside Glucoseon 02-07-2025 FINGERSTICK GLU 174 mg/dL High 74-106 [facility] Comment on above: Result Comment: JAZ GEMENT OF PATIENT CARE PER NURSING PROTOCOL Performed By: #### L 501.080 ####[facility] [address] [place], [address] FINGERSTICK GLU 143 mg/dL High 74-106 [facility] Comment on above: Result Comment: JAZ GEMENT OF PATIENT CARE PER NURSING PROTOCOL Performed By: #### L 501.080 ####[facility] [address] [place], [address] FINGERSTICK GLU 156 mg/dL High 74-106 [facility] Comment on above: Result Comment: JAZ GEMENT OF PATIENT CARE PER NURSING PROTOCOL Performed By: #### L 501.080 ####[facility] [address] [place], [address] FINGERSTICK GLU 146 mg/dL High 74-106 [facility] Comment on above: Result Comment: JAZ GEMENT OF PATIENT CARE PER NURSING PROTOCOL Performed By: #### L 501.080 ####[facility] [address] [place], [address] CBC W/Diff, Automatedon - Absolute Lymph 1.37 X10 3/uL Normal 0.83-4.51 [facility] Comment on above: Performed By: #### L 100.0100, L500.2500 ####[facility] [address] [place], [address] Absolute Neut 6.1 X10 3/uL Normal 2.0-7.7 [facility] Comment on above: Performed By: #### L 100.0100, L500.2500 ####[facility] [address] [place], [address] Basophils/100 WBC (Bld) 0.7 % Normal 0-1 [facility] Comment on above: Performed By: #### L 100.0100, L500.2500 ####[facility] [address] [place], [address] Eosinophils/100 WBC (Bld) 6.8 % High 0-5 [facility] Comment on above: Performed By: #### L 100.0100, L500.2500 ####[facility] [address] [place], [address] Erythrocyte distribution width (RBC) [Ratio] 13.6 % Normal 11.6-14.6 [facility] Comment on above: Performed By: #### L 100.0100, L500.2500 ####[facility] [address] [place], [address] Hematocrit (Bld) [Volume fraction] 29.6 % Low 40-54 [facility] Comment on above: Performed By: #### L 100.0100, L500.2500 ####[facility] [address] [place], [address] Hemoglobin (Bld) [Mass/Vol] 9.5 g/dL Low 13.0-16. 5 [facility] Comment on above: Performed By: #### L 100.0100, L500.2500 ####[facility] [address] [place], [address] IG% 1.900 High 0.0-0.9 [facility] Comment on above: Result Comment: IG% - Immature Granulocytes (promyelocytes, myelocytes andmetamyelocytes) > 1% indicates that a LEFT SHIFT is Present. Performed By: #### L 100.0100, L500.2500 ####[facility] [address] [place], [address] Lymphocytes/100 WBC (Bld) 15.0 % Low 19-41 [facility] Comment on above: Performed By: #### L 100.0100, L500.2500 ####[facility] [address] [place], [address] MCH (RBC) [Entitic mass] 27.5 pg Normal 27.0-32.0 [facility] Comment on above: Performed By: #### L 100.0100, L500.2500 ####[facility] [address] [place], [address] MCHC (RBC) [Mass/Vol] 32.1 g/dL Normal 32-36 [facility] Comment on above: Performed By: #### L 100.0100, L500.2500 ####[facility] [address] [place], [address] MCV (RBC) [Entitic vol] 85.5 fL Normal 80-94 [facility] Comment on above: Performed By: #### L 100.0100, L500.2500 ####[facility] [address] [place], [address] Monocytes/100 WBC (Bld) 9.5 % Normal 0-10 [facility] Comment on above: Performed By: #### L 100.0100, L500.2500 ####[facility] [address] [place], [address] Neutrophils/100 WBC (Bld) 66.1 % Normal 47-70 [facility] Comment on above: Performed By: #### L 100.0100, L500.2500 ####[facility] [address] [place], [address] Nucleated RBC (Bld) [#/Vol] 0 10*3/uL Normal 0-5 [facility] Comment on above: Performed By: #### L 100.0100, L500.2500 ####[facility] [address] [place], [address] Platelet mean volume (Bld) [Entitic vol] 9.0 fL Normal 6.2-12.0 [facility] Comment on above: Performed By: #### L 100.0100, L500.2500 ####[facility] [address] [place], [address] Platelets (Bld) [#/Vol] 258 10*3/uL Normal 150-450 [facility] Comment on above: Performed By: #### L 100.0100, L500.2500 ####[facility] [address] [place], [address] RBC (Bld) [#/Vol] 3.46 10*6/uL Low 4.6-6.2 [facility] Comment on above: Performed By: #### L 100.0100, L500.2500 ####[facility] [address] [place], [address] RDW SD 42.4 fl Normal 35.1-43.9 [facility] Comment on above: Performed By: #### L 100.0100, L500.2500 ####[facility] [address] [place], [address] WBC (Bld) [#/Vol] 9.2 10*3/uL Normal 4.4-11.0 [place] Comment on above: Performed By: #### L 100.0100, L500.2500 ####[facility] [address] [place], [address] Culture, Anaerobic Any [facility] ace 02-07-2025 CUAN ONLY AEROBIC SWAB WA S SENT DRUGS WITH ANAROBES MAYBE INHIBITED. No anaerobic bacteria isolated. Normal [facility] Comment on above: Performed By: #### M 100.4001, L8200.1075, M100.3000, M100.1999 ####[facility] [address] [place], [address] Serum or plasma vancomycin m easurement (mass/volume)Ordered By: Hugo Cervantes on 02-07-2025 Vancomycin [Mass/Vol] 17.6 ug/mL High 0.0-15.0 [facility] Vancomycin, Random Levelon 0 02-07-2025 VANCO, RANDOM 17.6 ug/mL High 0.0-15.0 [facility] Comment on above: Result Comment: VANC OMYCIN STANDARD DRUG THERAPY: CRITICAL VALUE IS > 15.0 mg/LVANCOMYCIN HIGH INTENSITY THERAPY: CRITICAL VALUE IS > 20.0 mg/LPLEASE CONTACT PHARMACY SERVICES (#9944) FOR INTERPRETATIONOF RESULTS. THIS RESULT DOES NOT REPRESENT A PEAK OR TROUGHLEVEL FOR THIS DRUG. Performed By: #### L 501.8850 ####[facility] [address] [place], [address] Wound Cultureon 02-07-2025 WC Normal [facility] Comment on above: Performed By: #### M 100.4001, L8200.1075, M100.3000, M100.1999 ####[facility] [address] [place], [address] Basic Metabolic Profile (BMP )on 02-06-2025 BUN/CRE 22.0 RATIO High 10-20 [facility] Comment on above: Performed By: #### L 100.0100, L500.2500 ####[facility] [address] [place], [address] Calcium [Mass/Vol] 8.8 mg/dL Normal 7.6-11.0 [facility] Comment on above: Performed By: #### L 100.0100, L500.2500 ####[facility] [address] [place], [address] Chloride [Moles/Vol] 109 mmol/L High 98-108 [facility] Comment on above: Performed By: #### L 100.0100, L500.2500 ####[facility] [address] [place], [address] CO2 [Moles/Vol] 21.2 mmol/L Normal 21.0-32.0 [facility] Comment on above: Performed By: #### L 100.0100, L500.2500 ####[facility] [address] [place], [address] Creatinine [Mass/Vol] 1.83 mg/dL High 0.70-1.20 [facility] Comment on above: Performed By: #### L 100.0100, L500.2500 ####[facility] [address] [place], [address] ECRCL 45.10 ml/min Low 50-250 [facility] Comment on above: Performed By: #### L 100.0100, L500.2500 ####[facility] [address] [place], [address] GAP 11 Normal 5-15 [facility] Comment on above: Performed By: #### L 100.0100, L500.2500 ####[facility] [address] [place], [address] GFR/1.73 sq M.predicted among non-blacks MDRD (S/P/Bld) [Vol rate/Area] 38 mL/min/{1.73_m2} Low >60 [facility] Comment on above: Result Comment: mL/m in/1.73m2 CKD-EPI Creatinine Equation (2020) Performed By: #### L 100.0100, L500.2500 ####[facility] [address] [place], [address] Glucose [Mass/Vol] 150 mg/dL High 70-99 [place] Comment on above: Performed By: #### L 100.0100, L500.2500 ####[facility] [address] [place], [address] Potassium [Moles/Vol] 3.9 mmol/L Normal 3.3-5.1 [facility] Comment on above: Performed By: #### L 100.0100, L500.2500 ####[facility] [address] [place], [address] Sodium [Moles/Vol] 141 mmol/L Normal 133-145 [place] Comment on above: Performed By: #### L 100.0100, L500.2500 ####[facility] [address] [place], [address] Urea nitrogen [Mass/Vol] 40 mg/dL High 4-19 [facility] Comment on above: Performed By: #### L 100.0100, L500.2500 ####[facility] [address] [place], [address] Bedside Glucoseon 02-06-2025 FINGERSTICK GLU 169 mg/dL High 74-106 [facility] Comment on above: Result Comment: JAZ GEMENT OF PATIENT CARE PER NURSING PROTOCOL Performed By: #### L 501.080 ####[facility] [address] [place], [address] FINGERSTICK GLU 140 mg/dL High 74-106 [facility] Comment on above: Result Comment: JAZ GEMENT OF PATIENT CARE PER NURSING PROTOCOL Performed By: #### L 501.080 ####[facility] [address] [place], [address] FINGERSTICK GLU 186 mg/dL High 74-106 [facility] Comment on above: Result Comment: JAZ GEMENT OF PATIENT CARE PER NURSING PROTOCOL Performed By: #### L 501.080 ####[facility] [address] [place], [address] FINGERSTICK GLU 147 mg/dL High 74-106 [facility] Comment on above: Result Comment: JAZ BRANDON OF PATIENT CARE PER NURSING PROTOCOL Performed By: #### L 501.080 ####[facility] [address] [place], [address] CBC W/Diff, Automatedon 07-2 Absolute Lymph 1.00 X10 3/uL Normal 0.83-4.51 [facility] Comment on above: Performed By: #### L 100.0100, L500.2500 ####[facility] [address] [place], [address] Absolute Neut 7.3 X10 3/uL Normal 2.0-7.7 [facility] Comment on above: Performed By: #### L 100.0100, L500.2500 ####[facility] [address] [place], [address] Basophils/100 WBC (Bld) 0.4 % Normal 0-1 [facility] Comment on above: Performed By: #### L 100.0100, L500.2500 ####[facility] [address] [place], [address] Eosinophils/100 WBC (Bld) 5.9 % High 0-5 [facility] Comment on above: Performed By: #### L 100.0100, L500.2500 ####[facility] [address] [place], [address] Erythrocyte distribution width (RBC) [Ratio] 13.6 % Normal 11.6-14.6 [facility] Comment on above: Performed By: #### L 100.0100, L500.2500 ####[facility] [address] [place], [address] Hematocrit (Bld) [Volume fraction] 30.5 % Low 40-54 [facility] Comment on above: Performed By: #### L 100.0100, L500.2500 ####[facility] [address] [place], [address] Hemoglobin (Bld) [Mass/Vol] 9.9 g/dL Low 13.0-16. 5 [facility] Comment on above: Performed By: #### L 100.0100, L500.2500 ####[facility] [address] [place], [address] IG% 0.800 Normal 0.0-0.9 [facility] Comment on above: Result Comment: IG% - Immature Granulocytes (promyelocytes, myelocytes andmetamyelocytes) > 1% indicates that a LEFT SHIFT is Present. Performed By: #### L 100.0100, L500.2500 ####[facility] [address] [place], [address] Lymphocytes/100 WBC (Bld) 10.1 % Low 19-41 [facility] Comment on above: Performed By: #### L 100.0100, L500.2500 ####[facility] [address] [place], [address] MCH (RBC) [Entitic mass] 27.9 pg Normal 27.0-32.0 [facility] Comment on above: Performed By: #### L 100.0100, L500.2500 ####[facility] [address] [place], [address] MCHC (RBC) [Mass/Vol] 32.5 g/dL Normal 32-36 [facility] Comment on above: Performed By: #### L 100.0100, L500.2500 ####[facility] [address] [place], [address] MCV (RBC) [Entitic vol] 85.9 fL Normal 80-94 [facility] Comment on above: Performed By: #### L 100.0100, L500.2500 ####[facility] [address] [place], [address] Monocytes/100 WBC (Bld) 8.6 % Normal 0-10 [facility] Comment on above: Performed By: #### L 100.0100, L500.2500 ####[facility] [address] [place], [address] Neutrophils/100 WBC (Bld) 74.2 % High 47-70 [facility] Comment on above: Performed By: #### L 100.0100, L500.2500 ####[facility] [address] [place], [address] Nucleated RBC (Bld) [#/Vol] 0 10*3/uL Normal 0-5 [facility] Comment on above: Performed By: #### L 100.0100, L500.2500 ####[facility] [address] [place], [address] Platelet mean volume (Bld) [Entitic vol] 9.2 fL Normal 6.2-12.0 [facility] Comment on above: Performed By: #### L 100.0100, L500.2500 ####[facility] [address] [place], [address] Platelets (Bld) [#/Vol] 262 10*3/uL Normal 150-450 [facility] Comment on above: Performed By: #### L 100.0100, L500.2500 ####[facility] [address] [place], [address] RBC (Bld) [#/Vol] 3.55 10*6/uL Low 4.6-6.2 [facility] Comment on above: Performed By: #### L 100.0100, L500.2500 ####[facility] [address] [place], [address] RDW SD 42.9 fl Normal 35.1-43.9 [facility] Comment on above: Performed By: #### L 100.0100, L500.2500 ####[facility] [address] [place], [address] WBC (Bld) [#/Vol] 9.9 10*3/uL Normal 4.4-11.0 [place] Comment on above: Performed By: #### L 100.0100, L500.2500 ####[facility] [address] [place], [address] Gram Stainon 02-06-2025 GS UNK UNK Bone 5th left Metatarsal toe Gram Stain No organisms seen 2+ White Blood Cells Normal [facility] Comment on above: Performed By: #### M 100.3000, M100.2000, M600.2200, M100.4001, M600.2000 ####[facility] [address] [place], [address] GS UNK UNK Clearance Fragment left 5th metatarsal toe Gram Stain No organisms seen Normal [facility] Comment on above: Performed By: #### M 600.2000, M100.2000, M600.2200, M100.3000, M100.4001 ####[facility] [address] [place], [address] Vancomycin, Random Levelon 0 02-06-2025 VANCO, RANDOM 21.4 ug/mL High 0.0-15.0 [facility] Comment on above: Result Comment: VANC OMYCIN STANDARD DRUG THERAPY: CRITICAL VALUE IS > 15.0 mg/LVANCOMYCIN HIGH INTENSITY THERAPY: CRITICAL VALUE IS > 20.0 mg/LPLEASE CONTACT PHARMACY SERVICES (#4139) FOR INTERPRETATIONOF RESULTS. THIS RESULT DOES NOT REPRESENT A PEAK OR TROUGHLEVEL FOR THIS DRUG. Performed By: #### L 501.8850 ####[facility] [address] [place], [address] Vancomycin, Trough Levelon 0 - VANCO, TROUGH 25.9 ug/mL High 5.0-15.0 [facility] Comment on above: Order Comment: Comme nts: Trough to be drawn 30 mins prior to scheduled [id number] Result Comment: Jalen mmended goal trough ranges [...] therapy recommended for serious lifethreatening infections include:- Fpkghdedgz-Ffotmrgjbhjp-Zjsbhynai (Ventilator/Healtcare Associated)-SepsisPLEASE CONTACT PHARMACY SERVICES (#1876) FOR INTERPRETATIONOF RESULTS. Performed By: #### L 501.8820 ####[facility] [address] [place], [address] Wound Cultureon 02-06-2025 WC UNK UNK Clearance Fragment left 5th metatarsal toe No growth aerobically. Normal [facility] Comment on above: Performed By: #### M 600.2000, M100.2000, M600.2200, M100.3000, M100.4001 ####[facility] [address] [place], [address] Acid fast bacillus (AFB) cul tureOrdered By: Kee Mejia on 02-05-2025 Mycobacterium sp identified Org specific cx Nom (Unsp spec) [facility] Mycobacterium sp identified Org specific cx Nom (Unsp spec) [facility] Anaerobic cultureOrdered By: Kee Mejia on 02-05-2025 Bacteria identified Anaer cx Nom (Unsp spec) No anaerobic bacteria isolated. [facility] Bacteria identified Anaer cx Nom (Unsp spec) No growth in 5 days. [facility] Basic Metabolic Profile (BMP )on 02-05-2025 BUN/CRE 22.6 RATIO High 10-20 [facility] Comment on above: Performed By: #### L 500.2500, L100.0100 ####[facility] [address] [place], [address] Calcium [Mass/Vol] 8.8 mg/dL Normal 7.6-11.0 [place] Comment on above: Performed By: #### L 500.2500, L100.0100 ####[facility] [address] [place], [address] Chloride [Moles/Vol] 110 mmol/L High 98-108 [facility] Comment on above: Performed By: #### L 500.2500, L100.0100 ####[facility] [address] [place], [address] CO2 [Moles/Vol] 20.0 mmol/L Low 21.0-32.0 [facility] Comment on above: Performed By: #### L 500.2500, L100.0100 ####[facility] [address] [place], [address] Creatinine [Mass/Vol] 1.81 mg/dL High 0.70-1.20 [facility] Comment on above: Performed By: #### L 500.2500, L100.0100 ####[facility] [address] [place], [address] ECRCL 45.33 ml/min Low 50-250 [facility] Comment on above: Performed By: #### L 500.2500, L100.0100 ####[facility] [address] [place], [address] GAP 12 Normal 5-15 [facility] Comment on above: Performed By: #### L 500.2500, L100.0100 ####[facility] [address] [place], [address] GFR/1.73 sq M.predicted among non-blacks MDRD (S/P/Bld) [Vol rate/Area] 38 mL/min/{1.73_m2} Low >60 [facility] Comment on above: Result Comment: mL/m in/1.73m2 CKD-EPI Creatinine Equation (2020) Performed By: #### L 500.2500, L100.0100 ####[facility] [address] [place], [address] Glucose [Mass/Vol] 166 mg/dL High 70-99 [place] Comment on above: Performed By: #### L 500.2500, L100.0100 ####[facility] [address] [place], [address] Potassium [Moles/Vol] 3.8 mmol/L Normal 3.3-5.1 [facility] Comment on above: Performed By: #### L 500.2500, L100.0100 ####[facility] [address] [place], [address] Sodium [Moles/Vol] 141 mmol/L Normal 133-145 [place] Comment on above: Performed By: #### L 500.2500, L100.0100 ####[facility] [address] [place], [address] Urea nitrogen [Mass/Vol] 41 mg/dL High 4-19 [facility] Comment on above: Performed By: #### L 500.2500, L100.0100 ####[facility] [address] [place], [address] Bedside Glucoseon 02-05-2025 FINGERSTICK GLU 168 mg/dL High 74-106 [facility] Comment on above: Result Comment: JAZ GEMENT OF PATIENT CARE PER NURSING PROTOCOL Performed By: #### L 501.080 ####[facility] [address] [place], [address] FINGERSTICK GLU 152 mg/dL High 74-106 [facility] Comment on above: Result Comment: JAZ GEMENT OF PATIENT CARE PER NURSING PROTOCOL Performed By: #### L 501.080 ####[facility] [address] [place], [address] FINGERSTICK GLU 153 mg/dL High 74-106 [facility] Comment on above: Result Comment: JAZ GEMENT OF PATIENT CARE PER NURSING PROTOCOL Performed By: #### L 501.080 ####[facility] [address] [place], [address] FINGERSTICK GLU 159 mg/dL High 74-106 [facility] Comment on above: Result Comment: JAZ GEMENT OF PATIENT CARE PER NURSING PROTOCOL Performed By: #### L 501.080 ####[facility] [address] [place], [address] FINGERSTICK GLU 167 mg/dL High 74-106 [facility] Comment on above: Result Comment: JAZ GEMENT OF PATIENT CARE PER NURSING PROTOCOL Performed By: #### L 501.080 ####[facility] [address] [place], [address] CBC W/Diff, Automatedon 07-2 5-2024 Absolute Lymph 1.00 X10 3/uL Normal 0.83-4.51 [facility] Comment on above: Performed By: #### L 500.2500, L100.0100 ####[facility] [address] [place], [address] Absolute Neut 8.2 X10 3/uL High 2.0-7.7 [facility] Comment on above: Performed By: #### L 500.2500, L100.0100 ####[facility] [address] [place], [address] Basophils/100 WBC (Bld) 0.2 % Normal 0-1 [facility] Comment on above: Performed By: #### L 500.2500, L100.0100 ####[facility] [address] [place], [address] Eosinophils/100 WBC (Bld) 5.2 % High 0-5 [facility] Comment on above: Performed By: #### L 500.2500, L100.0100 ####[facility] [address] [place], [address] Erythrocyte distribution width (RBC) [Ratio] 13.7 % Normal 11.6-14.6 [facility] Comment on above: Performed By: #### L 500.2500, L100.0100 ####[facility] [address] [place], [address] Hematocrit (Bld) [Volume fraction] 30.2 % Low 40-54 [facility] Comment on above: Performed By: #### L 500.2500, L100.0100 ####[facility] [address] [place], [address] Hemoglobin (Bld) [Mass/Vol] 9.7 g/dL Low 13.0-16. 5 [facility] Comment on above: Performed By: #### L 500.2500, L100.0100 ####[facility] [address] [place], [address] IG% 0.800 Normal 0.0-0.9 [facility] Comment on above: Result Comment: IG% - Immature Granulocytes (promyelocytes, myelocytes andmetamyelocytes) > 1% indicates that a LEFT SHIFT is Present. Performed By: #### L 500.2500, L100.0100 ####[facility] [address] [place], [address] Lymphocytes/100 WBC (Bld) 9.4 % Low 19-41 [facility] Comment on above: Performed By: #### L 500.2500, L100.0100 ####[facility] [address] [place], [address] MCH (RBC) [Entitic mass] 27.6 pg Normal 27.0-32.0 [facility] Comment on above: Performed By: #### L 500.2500, L100.0100 ####[facility] [address] [place], [address] MCHC (RBC) [Mass/Vol] 32.1 g/dL Normal 32-36 [facility] Comment on above: Performed By: #### L 500.2500, L100.0100 ####[facility] [address] [place], [address] MCV (RBC) [Entitic vol] 85.8 fL Normal 80-94 [facility] Comment on above: Performed By: #### L 500.2500, L100.0100 ####[facility] [address] [place], [address] Monocytes/100 WBC (Bld) 8.0 % Normal 0-10 [facility] Comment on above: Performed By: #### L 500.2500, L100.0100 ####[facility] [address] [place], [address] Neutrophils/100 WBC (Bld) 76.4 % High 47-70 [facility] Comment on above: Performed By: #### L 500.2500, L100.0100 ####[facility] [address] [place], [address] Nucleated RBC (Bld) [#/Vol] 0 10*3/uL Normal 0-5 [facility] Comment on above: Performed By: #### L 500.2500, L100.0100 ####[facility] [address] [place], [address] Platelet mean volume (Bld) [Entitic vol] 9.2 fL Normal 6.2-12.0 [facility] Comment on above: Performed By: #### L 500.2500, L100.0100 ####[facility] [address] [place], [address] Platelets (Bld) [#/Vol] 232 10*3/uL Normal 150-450 [facility] Comment on above: Performed By: #### L 500.2500, L100.0100 ####[facility] [address] [place], [address] RBC (Bld) [#/Vol] 3.52 10*6/uL Low 4.6-6.2 [facility] Comment on above: Performed By: #### L 500.2500, L100.0100 ####[facility] [address] [place], [address] RDW SD 43.1 fl Normal 35.1-43.9 [facility] Comment on above: Performed By: #### L 500.2500, L100.0100 ####[facility] [address] [place], [address] WBC (Bld) [#/Vol] 10.7 10*3/uL Normal 4.4-11.0 [facility] Comment on above: Performed By: #### L 500.2500, L100.0100 ####[facility] [address] [place], [address] Decalcification bone/plaqueo n 02-05-2025 Decalcification bone/plaque Normal [facility] Comment on above: Performed By: #### P DEC ####[facility] [address] [place], [address] Foot min 3 Viewson 5 Foot min 3 Views Normal [facility] Fungus cultureOrdered By: Eddie Mejia on 02-05-2025 Fungus identified Cx Nom (Unsp spec) [facility] Fungus stainOrdered By: Akshat Mejia on 02-05-2025 Fungus identified Fungus stain Nom (Unsp spec) [facility] Gram stainOrdered By: Yeni Mejia on 02-05-2025 Microscopic observation Gram stain Nom (Unsp spec) [facility] M8200.1000on 02-05-2025 M8200.1000 Normal Reference Range = Negative MRSA DNA Nose Ql ANGELY+probe GeneXpert Instrument, PCR method MRSA PCR MRSA NEGATIVE Normal [facility] Comment on above: Performed By: #### M 8200.1000 ####[facility] [address] [place], [address] MR/POSTOP.ANEon 02-05-2025 MR/POSTOP.ANE Normal [facility] Magnetic resonance imaging r eportOrdered By: Jay Barrow on 02-05-2025 Study report [facility] Nasal methicillin resistant Staphylococcus aureus (MRSA) DNA detection by PCROrdered By: Karen Aly on 02-05-2025 MRSA DNA ANGELY+probe Ql (Nose) [facility] Operative Reporton Operative Report Normal [facility] Routine wound cultureOrdered By: Kee Mejia on 02-05-2025 Microbial culture, routine Meth. resista nt Staph. aureus Abnormal [facility] Basic Metabolic Profile (BMP )on 02-04-2025 BUN/CRE 17.8 RATIO Normal 10-20 [facility] Comment on above: Performed By: #### L 100.0100, L500.2500 ####[facility] [address], [address] Calcium [Mass/Vol] 8.3 mg/dL Normal 7.6-11.0 [place] Comment on above: Performed By: #### L 100.0100, L500.2500 ####[facility] [address] [place], [address] Chloride [Moles/Vol] 110 mmol/L High 98-108 [facility] Comment on above: Performed By: #### L 100.0100, L500.2500 ####[facility] [address] [place], [address] CO2 [Moles/Vol] 23.0 mmol/L Normal 21.0-32.0 [facility] Comment on above: Performed By: #### L 100.0100, L500.2500 ####[facility] [address] [place], [address] Creatinine [Mass/Vol] 1.49 mg/dL High 0.70-1.20 [facility] Comment on above: Performed By: #### L 100.0100, L500.2500 ####[facility] [address] [place], [address] ECRCL 55.04 ml/min Normal 50-250 [facility] Comment on above: Performed By: #### L 100.0100, L500.2500 ####[facility] [address] [place], [address] GAP 9 Normal 5-15 [facility] Comment on above: Performed By: #### L 100.0100, L500.2500 ####[facility] [address] [place], [address] GFR/1.73 sq M.predicted among non-blacks MDRD (S/P/Bld) [Vol rate/Area] 48 mL/min/{1.73_m2} Low >60 [facility] Comment on above: Result Comment: mL/m in/1.73m2 CKD-EPI Creatinine Equation (2020) Performed By: #### L 100.0100, L500.2500 ####[facility] [address] [place], [address] Glucose [Mass/Vol] 170 mg/dL High 70-99 [facility] Comment on above: Performed By: #### L 100.0100, L500.2500 ####[facility] [address] [place], [address] Potassium [Moles/Vol] 3.9 mmol/L Normal 3.3-5.1 [facility] Comment on above: Performed By: #### L 100.0100, L500.2500 ####[facility] [address] [place], [address] Sodium [Moles/Vol] 142 mmol/L Normal 133-145 [facility] Comment on above: Performed By: #### L 100.0100, L500.2500 ####[facility] [address] [place], [address] Urea nitrogen [Mass/Vol] 27 mg/dL High 4-19 [facility] Comment on above: Performed By: #### L 100.0100, L500.2500 ####[facility] [address] [place], [address] Bedside Glucoseon 02-04-2025 FINGERSTICK GLU 176 mg/dL High 74-106 [facility] Comment on above: Result Comment: JAZ GEMENT OF PATIENT CARE PER NURSING PROTOCOL Performed By: #### L 501.080 ####[facility] [address] [place], [address] FINGERSTICK GLU 143 mg/dL High 74-106 [facility] Comment on above: Result Comment: JAZ GEMENT OF PATIENT CARE PER NURSING PROTOCOL Performed By: #### L 501.080 ####[facility] [address] [place], [address] FINGERSTICK GLU 171 mg/dL High 74-106 [facility] Comment on above: Result Comment: JAZ GEMENT OF PATIENT CARE PER NURSING PROTOCOL Performed By: #### L 501.080 ####[facility] [address] [place], [address] FINGERSTICK GLU 169 mg/dL High 74-106 [facility] Comment on above: Result Comment: JAZ GEMENT OF PATIENT CARE PER NURSING PROTOCOL Performed By: #### L 501.080 ####[facility] [address] [place], [address] CBC W/Diff, Automatedon 07-2 Absolute Lymph 0.61 X10 3/uL Low 0.83-4.51 [facility] Comment on above: Performed By: #### L 100.0100, L500.2500 ####[facility] [address] [place], [address] Absolute Neut 9.2 X10 3/uL High 2.0-7.7 [facility] Comment on above: Performed By: #### L 100.0100, L500.2500 ####[facility] [address] [place], [address] Basophils/100 WBC (Bld) 0.3 % Normal 0-1 [facility] Comment on above: Performed By: #### L 100.0100, L500.2500 ####[facility] [address] [place], [address] Eosinophils/100 WBC (Bld) 4.1 % Normal 0-5 [facility] Comment on above: Performed By: #### L 100.0100, L500.2500 ####[facility] [address] [place], [address] Erythrocyte distribution width (RBC) [Ratio] 13.7 % Normal 11.6-14.6 [facility] Comment on above: Performed By: #### L 100.0100, L500.2500 ####[facility] [address] [place], [address] Hematocrit (Bld) [Volume fraction] 31.0 % Low 40-54 [facility] Comment on above: Performed By: #### L 100.0100, L500.2500 ####[facility] [address] [place], [address] Hemoglobin (Bld) [Mass/Vol] 10.1 g/dL Low 13.0-16. 5 [facility] Comment on above: Performed By: #### L 100.0100, L500.2500 ####[facility] [address] [place], [address] IG% 0.900 Normal 0.0-0.9 [facility] Comment on above: Result Comment: IG% - Immature Granulocytes (promyelocytes, myelocytes andmetamyelocytes) > 1% indicates that a LEFT SHIFT is Present. Performed By: #### L 100.0100, L500.2500 ####[facility] [address] [place], [address] Lymphocytes/100 WBC (Bld) 5.3 % Low 19-41 [facility] Comment on above: Performed By: #### L 100.0100, L500.2500 ####[facility] [address] [place], [address] MCH (RBC) [Entitic mass] 27.8 pg Normal 27.0-32.0 [facility] Comment on above: Performed By: #### L 100.0100, L500.2500 ####[facility] [address] [place], [address] MCHC (RBC) [Mass/Vol] 32.6 g/dL Normal 32-36 [facility] Comment on above: Performed By: #### L 100.0100, L500.2500 ####[facility] [address] [place], [address] MCV (RBC) [Entitic vol] 85.4 fL Normal 80-94 [facility] Comment on above: Performed By: #### L 100.0100, L500.2500 ####[facility] [address] [place], [address] Monocytes/100 WBC (Bld) 9.4 % Normal 0-10 [facility] Comment on above: Performed By: #### L 100.0100, L500.2500 ####[facility] [address] [place], [address] Neutrophils/100 WBC (Bld) 80.0 % High 47-70 [facility] Comment on above: Performed By: #### L 100.0100, L500.2500 ####[facility] [address] [place], [address] Nucleated RBC (Bld) [#/Vol] 0 10*3/uL Normal 0-5 [facility] Comment on above: Performed By: #### L 100.0100, L500.2500 ####[facility] [address] [place], [address] Platelet mean volume (Bld) [Entitic vol] 9.3 fL Normal 6.2-12.0 [facility] Comment on above: Performed By: #### L 100.0100, L500.2500 ####[facility] [address] [place], [address] Platelets (Bld) [#/Vol] 193 10*3/uL Normal 150-450 [facility] Comment on above: Performed By: #### L 100.0100, L500.2500 ####[facility] [address] [place], [address] RBC (Bld) [#/Vol] 3.63 10*6/uL Low 4.6-6.2 [facility] Comment on above: Performed By: #### L 100.0100, L500.2500 ####[facility] [address] [place], [address] RDW SD 43.2 fl Normal 35.1-43.9 [facility] Comment on above: Performed By: #### L 100.0100, L500.2500 ####[facility] [address] [place], [address] WBC (Bld) [#/Vol] 11.4 10*3/uL High 4.4-11.0 [facility] Comment on above: Performed By: #### L 100.0100, L500.2500 ####[facility] [address] [place], [address] Consultation - Surgicalon Consultation - Surgical Normal [facility] Gram Stainon 02-04-2025 GS ONLY AEROBIC SWAB WA S SENT DRUGS WITH ANAROBES MAYBE INHIBITED. Gram Stain 4+ Gram positive cocci Rare Epithelial cells 4+ Gram positive rods Normal [facility] Comment on above: Performed By: #### M 100.4001, L8200.1075, M100.3000, M100.1999 ####[facility] [address] [place], [address] Lower Ext/No Jt/w/oon 2024 Lower Ext/No Jt/w/o Normal [facility] MRSA Wound DNA by PCRon 01-13 MRSA DNA ASSAY Positive Abnormal Negative [facility] Comment on above: Order Comment: Wound left foot Result Comment: [facility]25213 Edwar Mcdowell Mitchell.REPORT READ BACK BY SAME. AMENDED REPORT 02/04/25213 MRSA RESULT previously reported as: POSITIVE H Performed By: #### M 100.4001, L8200.1075, M100.3000, M100.1999 ####[facility] [address] [place], [address] Urine Cultureon 02-04-2025 URC Culture exhibits no growth. Normal [facility] Comment on above: Performed By: #### M 100.2200, L400.0001 ####[facility] [address] [place], [address] Vancomycin, Random Levelon 0 02-04-2025 VANCO, RANDOM 17.8 ug/mL High 0.0-15.0 [facility] Comment on above: Result Comment: VANC OMYCIN STANDARD DRUG THERAPY: CRITICAL VALUE IS > 15.0 mg/LVANCOMYCIN HIGH INTENSITY THERAPY: CRITICAL VALUE IS > 20.0 mg/LPLEASE CONTACT PHARMACY SERVICES (#5396) FOR INTERPRETATIONOF RESULTS. THIS RESULT DOES NOT REPRESENT A PEAK OR TROUGHLEVEL FOR THIS DRUG. Performed By: #### L 501.8850 ####[facility] [address] [place], [place], [address] Vancomycin, Trough Levelon 0 02-04-2025 VANCO, TROUGH 21.4 ug/mL High 5.0-15.0 [facility] Comment on above: Order Comment: Comme nts: Trough to be drawn 30 mins prior to scheduled [id number] Result Comment: Jalen mmended goal trough ranges [...] therapy recommended for serious lifethreatening infections include:- Hkcxhuiaic-Uoghadgocigs-Zcsqxgdgt (Ventilator/Healtcare Associated)-SepsisPLEASE CONTACT PHARMACY SERVICES (#8514) FOR INTERPRETATIONOF RESULTS. Performed By: #### L 501.8820 ####[facility] [address] [place], [place], [address] Anaerobic cultureOrdered By: Kee Mejia on 02-03-2025 Bacteria identified Anaer cx Nom (Unsp spec) No anaerobic bacteria isolated. [facility] Arterial study reportOrdered By: Aneesh Ac on 02-03-2025 Noninvasive arteriosclerosis study report [facility] Work Phone: Bedside Glucoseon 02-03-2025 FINGERSTICK GLU 170 mg/dL High 74-106 [facility] Comment on above: Result Comment: JAZ GEMENT OF PATIENT CARE PER NURSING PROTOCOL Performed By: #### L 501.080 ####[facility] [address] [place], [place], [address] FINGERSTICK GLU 154 mg/dL High 74-106 [facility] Comment on above: Result Comment: JAZ GEMENT OF PATIENT CARE PER NURSING PROTOCOL Performed By: #### L 501.080 ####[facility] [address] [place], [address] FINGERSTICK GLU 140 mg/dL High [address] [facility] Comment on above: Result Comment: JAZ GEMENT OF PATIENT CARE PER NURSING PROTOCOL Performed By: #### L 501.080 ####[facility] [address] [place], [address] FINGERSTICK GLU 148 mg/dL High 74-106 [facility] Comment on above: Result Comment: JZA GEMENT OF PATIENT CARE PER NURSING PROTOCOL Performed By: #### L 501.080 ####[facility] [address] [place], [address] FINGERSTICK GLU 140 mg/dL High -[address] [place] [address] Comment on above: Result Comment: JAZ GEMENT OF PATIENT CARE PER NURSING PROTOCOL Performed By: #### L 501.080 ####[facility] [address] [place], [address] Bilirubin, totalOrdered By: Karen Aly on 02-03-2025 Bilirubin [Mass/Vol] 0.61 mg/dL 0.00-1.30 [facility] CBC W/Diff, Automatedon 01-13 PLT EST ADEQUATE Normal ADEQ [facility] Comment on above: Performed By: #### L 501.5200, L501.6710, L101.9900, L500.4050, L100.0100, L501.9985 ####[facility] [address] [place], [address] CRPon 02-03-2025 C-REACTIVE PROT 138.00 mg/L High 0.0-3.0 [facility] Comment on above: Performed By: #### L 501.5200, L501.6710, L101.9900, L500.4050, L100.0100, L501.9985 ####[facility] [address] [place], [address] Comprehensive Metabolic Prof ilon 02-03-2025 Albumin [Mass/Vol] 2.9 g/dL Low 3.4-4.8 [facility] Comment on above: Performed By: #### L 501.5200, L501.6710, L101.9900, L500.4050, L100.0100, L501.9985 ####[facility] [address] [place], [address] ALK PHOS 106 U/L Normal 40-129 [facility] Comment on above: Performed By: #### L 501.5200, L501.6710, L101.9900, L500.4050, L100.0100, L501.9985 ####[facility] [address] [place], [address] ALT [Catalytic activity/Vol] 9 U/L Normal <=46 [facility] Comment on above: Performed By: #### L 501.5200, L501.6710, L101.9900, L500.4050, L100.0100, L501.9985 ####[facility] [address] [place], [address] AST [Catalytic activity/Vol] 15 U/L Normal <=37 [facility] Comment on above: Result Comment: Hemo lysis present, Results??could be affected.?? Performed By: #### L 501.5200, L501.6710, L101.9900, L500.4050, L100.0100, L501.9985 ####[facility] [address] [place], [address] Bilirubin [Mass/Vol] 0.61 mg/dL Normal 0.00-1.30 [facility] Comment on above: Performed By: #### L 501.5200, L501.6710, L101.9900, L500.4050, L100.0100, L501.9985 ####[facility] [address] [place], [address] BUN/CRE 16.9 RATIO Normal 10-20 [facility] Comment on above: Performed By: #### L 501.5200, L501.6710, L101.9900, L500.4050, L100.0100, L501.9985 ####[facility] [address] [place], [address] Calcium [Mass/Vol] 8.3 mg/dL Normal 7.6-11.0 [facility] Comment on above: Performed By: #### L 501.5200, L501.6710, L101.9900, L500.4050, L100.0100, L501.9985 ####[facility] [address] [place], [address] Chloride [Moles/Vol] 107 mmol/L Normal 98-108 [facility] Comment on above: Performed By: #### L 501.5200, L501.6710, L101.9900, L500.4050, L100.0100, L501.9985 ####[facility] [address] [place], [address] CO2 [Moles/Vol] 18.1 mmol/L Low 21.0-32.0 [facility] Comment on above: Performed By: #### L 501.5200, L501.6710, L101.9900, L500.4050, L100.0100, L501.9985 ####[facility] [address] [place], [address] Creatinine [Mass/Vol] 1.10 mg/dL Normal 0.70-1.20 [facility] Comment on above: Performed By: #### L 501.5200, L501.6710, L101.9900, L500.4050, L100.0100, L501.9985 ####[facility] [address] [place], [address] GAP 14 Normal 5-15 [facility] Comment on above: Performed By: #### L 501.5200, L501.6710, L101.9900, L500.4050, L100.0100, L501.9985 ####[facility] [address] [place], [address] GFR/1.73 sq M.predicted among non-blacks MDRD (S/P/Bld) [Vol rate/Area] 69 mL/min/{1.73_m2} Normal >60 [facility] Comment on above: Result Comment: mL/m in/1.73m2 CKD-EPI Creatinine Equation (2020) Performed By: #### L 501.5200, L501.6710, L101.9900, L500.4050, L100.0100, L501.9985 ####[facility] [address] [place], [address] Glucose [Mass/Vol] 154 mg/dL High 70-99 [place] Comment on above: Performed By: #### L 501.5200, L501.6710, L101.9900, L500.4050, L100.0100, L501.9985 ####[facility] [address] [place], [address] Potassium [Moles/Vol] 4.2 mmol/L Normal 3.3-5.1 [facility] Comment on above: Result Comment: Hemo lysis present, Results??could be affected.?? Performed By: #### L 501.5200, L501.6710, L101.9900, L500.4050, L100.0100, L501.9985 ####[facility] [address] [place], [address] Sodium [Moles/Vol] 139 mmol/L Normal 133-145 [place] Comment on above: Performed By: #### L 501.5200, L501.6710, L101.9900, L500.4050, L100.0100, L501.9985 ####[facility] [address] [place], [address] T PROT 5.6 g/dL Low 5.9-8.4 [facility] Comment on above: Performed By: #### L 501.5200, L501.6710, L101.9900, L500.4050, L100.0100, L501.9985 ####[facility] [address] [place], [place], [id number] Urea nitrogen [Mass/Vol] 19 mg/dL Normal 4-19 [facility] Comment on above: Performed By: #### L 501.5200, L501.6710, L101.9900, L500.4050, L100.0100, L501.9985 ####[facility] [address] [place], [place], [address] Electrocardiogram reportOrde red By: Tuan Thakkar on 02-03-2025 EKG study [facility] Other Phone: Erythrocyte Sed Rateon 02-03 SED RATE 14 mm/hr Normal 0-20 [facility] Comment on above: Performed By: #### L 501.5200, L501.6710, L101.9900, L500.4050, L100.0100, L501.9985 ####[facility] [address] [place], [place], [address] Erythrocyte sedimentation ra teOrdered By: Karen Aly on 02-03-2025 ESR (Bld) [Velocity] 14 mm/h 0-20 [facility] Gram stainOrdered By: Yeni Mejia on 02-03-2025 Microscopic observation Gram stain Nom (Unsp spec) [facility] Hemoglobin A1con 02-03-2025 HbA1c (Bld) [Mass fraction] 6.7 % High <=5.6 [facility] Comment on above: Result Comment: Norm al < 5.7 % Prediabetic 5.7 - 6.4 % Diabetic >or= 6.5 % Please note range changes. Performed By: #### L 501.5200, L501.6710, L101.9900, L500.4050, L100.0100, L501.9985 ####[facility] [address] [place], [place], [address] Hemoglobin A1c percentageOrd ered By: Karen Aly on 02-03-2025 HbA1c (Bld) [Mass fraction] 6.7 % High <5.7 [facility] Lactic Acidon 02-03-2025 Lactate [Moles/Vol] 1.6 mmol/L Normal 0.0-2.0 [facility] Comment on above: Performed By: #### L 503.6005 ####[facility] [address] [place], [place], [id number] Lactic acid measurementOrder ed By: Nicholas Galarza on 02-03-2025 Lactate [Moles/Vol] 1.6 mmol/L 0.0-2.0 [facility] Legionella Antigen Urineon 0 02-03-2025 LEGU URINE, CLEAN CATCH Legionella Ag, Urine Negative (See interpretation below) Normal [facility] Comment on above: Performed By: #### M 300.4600, M300.4500 ####[facility] [address] [place], [place], [id number] Lower Ext Art Exam w/o Exerc jimmy 02-03-2025 Lower Ext Art Exam w/o Exercis Normal [facility] MRSA Wound DNA by PCRon 01-13 MRSA DNA ASSAY Normal Negative [facility] Comment on above: Order Comment: left foot Result Comment: Vicenta guajardo via OM: Duplicate Order Performed By: #### L 8200.1075 ####[facility] [address] [place], [place], [id number] PROBE CHECK Normal [facility] Comment on above: Order Comment: left foot Result Comment: Canc elled via OM: Duplicate Order Performed By: #### L 8200.1075 ####[facility] [address] [place], [address] SA DNA ASSAY Normal Negative [facility] Comment on above: Order Comment: left foot Result Comment: Canc elled via OM: Duplicate Order Performed By: #### L 8200.1075 ####[facility] [address] [place], [address] SPC Normal [facility] Comment on above: Order Comment: left foot Result Comment: Canc elled via OM: Duplicate Order Performed By: #### L 8200.1075 ####[facility] [address], [address] Magnesiumon 02-03-2025 Magnesium [Mass/Vol] 1.7 mg/dL Normal 1.5-2.2 [facility] Comment on above: Performed By: #### L 501.5200, L501.6710, L101.9900, L500.4050, L100.0100, L501.9985 ####[facility] [address] [place], [address] Magnesium measurement (mass/ volume)Ordered By: Karen Aly on 02-03-2025 Magnesium (Unsp spec) [Mass/Vol] 1.7 mg/dL 1.5-2.2 [facility] Platelet estimateOrdered By: Karen Aly on 02-03-2025 Platelets LM Ql (Bld) ADEQUATE ADEQ [facility] RESPIRATORY PANEL MOLECULARo n 02-03-2025 RP PANEL Normal [facility] Comment on above: Performed By: #### M 100.638 ####[facility] [address] [place], [address] Respiratory pathogens detect ion panel by molecular detection methodOrdered By: Karen Aly on 02-03-2025 Respiratory pathogens DNA and RNA panel ANGELY+probe (Resp) [facility] Routine wound cultureOrdered By: Kee Mejia on 02-03-2025 Microbial culture, routine Meth. resista nt Staph. aureus Abnormal [facility] Microbial culture, routine Enterobacter cloacae complex Abnormal [facility] Serum globulin measurementOr dered By: Karen Aly on 02-03-2025 Globulin (S) [Mass/Vol] 2.7 g/dL 2.2-4.2 [facility] Serum or plasma C reactive p rotein measurement (mass/volume)Ordered By: Karen Jermain on 02-03-2025 CRP [Mass/Vol] 138.00 mg/L High 0.0-3.0 [facility] Serum or plasma albumin antoine urement (mass/volume)Ordered By: Karen Jermain on 02-03-2025 Albumin [Mass/Vol] 2.9 g/dL Low 3.4-4.8 [place] Serum or plasma albumin/glob ulin mass ratioOrdered By: Karen Jermain on 02-03-2025 Albumin/Globulin [Mass ratio] 1.1 {ratio} 0.9-2.4 [facility] Serum or plasma alkaline marilin sphatase measurementOrdered By: Karen Aly on 02-03-2025 ALP [Catalytic activity/Vol] 106 U/L 40-129 [facility] Staphylococcus aureus DNA de tection by probe and target amplification methodOrdered By: eKe Mejia on 02-03-2025 S. aureus DNA ANGELY+probe Ql (Unsp spec) Positive High Negative [facility] Strep pneumoniae Antig(UR,CS F)on 02-03-2025 STPAG Normal [facility] Comment on above: Performed By: #### M 300.4382, M300.6005 ####[facility] [address] [place], [place], [id number] Total proteinOrdered By: Aut edilberton Jermain on 02-03-2025 Protein [Mass/Vol] 5.6 g/dL Low 5.9-8.4 [place] 12 Lead EKGon 02-02-2025 12 Lead EKG Normal [facility] Absolute lymphocyte countOrd ered By: Nicholas Galarza on 02-02-2025 Lymphocytes Auto (Unsp spec) [#/Vol] 0.50 10*3/uL Low 0.83-4.51 [facility] Absolute neutrophil countOrd ered By: Nicholas Galarza on 02-02-2025 Neutrophils (Bld) [#/Vol] 12.0 10*3/uL High 2.0-7.7 [facility] Activated partial thrombopla stin time (aPTT) in platelet poor plasma by coagulation aOrdered By: Nicholas Galarza on 02-02-2025 aPTT Coag (PPP) [Time] 34.0 s 24.1-36.2 [facility] Anion gap in Serum or Plasma Ordered By: Nicholas Galarza on 02-02-2025 Anion gap [Moles/Vol] 14 mmol/L 5-15 [facility] Automated lymphocyte count a s percentage of total leukocytesOrdered By: Nicholas Galarza on 02-02-2025 Lymphocytes/100 WBC Auto (Unsp spec) 3.6 % Low 19-41 [facility] BUN/creatinine ratioOrdered By: Nicholas Galarza on 02-02-2025 Urea nitrogen/Creatinine [Mass ratio] 17.0 mg/mg 10-20 [facility] Basophil percentageOrdered B y: Nicholas Galarza on 02-02-2025 Basophils/100 WBC (Bld) 0.2 % 0-1 [facility] Bilirubin Test strip Ql (U)O rdered By: Nicholas Galarza on 02-02-2025 Bilirubin Ql (U) Negative Negative [facility] Bilirubin, totalOrdered By: Nicholas Galarza on 02-02-2025 Bilirubin [Mass/Vol] 0.50 mg/dL 0.00-1.30 [facility] Blood cultureOrdered By: Hermes Galarza on 02-02-2025 Bacteria identified Cx Nom (Bld) No growth in 5 days. [facility] Bacteria identified Cx Nom (Bld) No growth in 5 days. [facility] Brain/Head without Contrasto n 02-02-2025 Brain/Head without Contrast Normal [facility] CBC W/Diff, Automatedon 01-13 Absolute Lymph 0.50 X10 3/uL Low 0.83-4.51 [facility] Comment on above: Performed By: #### M 200.1000, L100.0100, L300.3900, L300.4310, L503.6005, L500.4050 ####[facility] [address] [place], [address] Absolute Neut 12.0 X10 3/uL High 2.0-7.7 [facility] Comment on above: Performed By: #### M 200.1000, L100.0100, L300.3900, L300.4310, L503.6005, L500.4050 ####[facility] [address] [place], [address] Basophils/100 WBC (Bld) 0.2 % Normal 0-1 [facility] Comment on above: Performed By: #### M 200.1000, L100.0100, L300.3900, L300.4310, L503.6005, L500.4050 ####[facility] [address] [place], [address] Eosinophils/100 WBC (Bld) 0.6 % Normal 0-5 [facility] Comment on above: Performed By: #### M 200.1000, L100.0100, L300.3900, L300.4310, L503.6005, L500.4050 ####[facility] [address] [place], [address] Erythrocyte distribution width (RBC) [Ratio] 13.6 % Normal 11.6-14.6 [facility] Comment on above: Performed By: #### M 200.1000, L100.0100, L300.3900, L300.4310, L503.6005, L500.4050 ####[facility] [address] [place], [address] Hematocrit (Bld) [Volume fraction] 33.5 % Low 40-54 [facility] Comment on above: Performed By: #### M 200.1000, L100.0100, L300.3900, L300.4310, L503.6005, L500.4050 ####[facility] [address] [place], [address] Hemoglobin (Bld) [Mass/Vol] 10.9 g/dL Low 13.0-16. 5 [facility] Comment on above: Performed By: #### M 200.1000, L100.0100, L300.3900, L300.4310, L503.6005, L500.4050 ####[facility] [address] [place], [address] IG% 0.700 Normal 0.0-0.9 [facility] Comment on above: Result Comment: IG% - Immature Granulocytes (promyelocytes, myelocytes andmetamyelocytes) > 1% indicates that a LEFT SHIFT is Present. Performed By: #### M 200.1000, L100.0100, L300.3900, L300.4310, L503.6005, L500.4050 ####[facility] [address] [place], [address] Lymphocytes/100 WBC (Bld) 3.6 % Low 19-41 [facility] Comment on above: Performed By: #### M 200.1000, L100.0100, L300.3900, L300.4310, L503.6005, L500.4050 ####[facility] [address] [place], [address] MCH (RBC) [Entitic mass] 27.7 pg Normal 27.0-32.0 [facility] Comment on above: Performed By: #### M 200.1000, L100.0100, L300.3900, L300.4310, L503.6005, L500.4050 ####[facility] [address] [place], [address] MCHC (RBC) [Mass/Vol] 32.5 g/dL Normal 32-36 [facility] Comment on above: Performed By: #### M 200.1000, L100.0100, L300.3900, L300.4310, L503.6005, L500.4050 ####[facility] [address] [place], [address] MCV (RBC) [Entitic vol] 85.0 fL Normal 80-94 [facility] Comment on above: Performed By: #### M 200.1000, L100.0100, L300.3900, L300.4310, L503.6005, L500.4050 ####[facility] [address] [place], [address] Monocytes/100 WBC (Bld) 8.7 % Normal 0-10 [facility] Comment on above: Performed By: #### M 200.1000, L100.0100, L300.3900, L300.4310, L503.6005, L500.4050 ####[facility] [address] [place], [address] Neutrophils/100 WBC (Bld) 86.2 % High 47-70 [facility] Comment on above: Performed By: #### M 200.1000, L100.0100, L300.3900, L300.4310, L503.6005, L500.4050 ####[facility] [address] [place], [address] Nucleated RBC (Bld) [#/Vol] 0 10*3/uL Normal 0-5 [facility] Comment on above: Performed By: #### M 200.1000, L100.0100, L300.3900, L300.4310, L503.6005, L500.4050 ####[facility] [address] [place], [address] Platelet mean volume (Bld) [Entitic vol] 9.4 fL Normal 6.2-12.0 [facility] Comment on above: Performed By: #### M 200.1000, L100.0100, L300.3900, L300.4310, L503.6005, L500.4050 ####[facility] [address] [place], [address] Platelets (Bld) [#/Vol] 203 10*3/uL Normal 150-450 [facility] Comment on above: Performed By: #### M 200.1000, L100.0100, L300.3900, L300.4310, L503.6005, L500.4050 ####[facility] [address] [place], [address] RBC (Bld) [#/Vol] 3.94 10*6/uL Low 4.6-6.2 [facility] Comment on above: Performed By: #### M 200.1000, L100.0100, L300.3900, L300.4310, L503.6005, L500.4050 ####[facility] [address] [place], [address] RDW SD 42.2 fl Normal 35.1-43.9 [facility] Comment on above: Performed By: #### M 200.1000, L100.0100, L300.3900, L300.4310, L503.6005, L500.4050 ####[facility] [address] [place], [address] WBC (Bld) [#/Vol] 13.9 10*3/uL High 4.4-11.0 [facility] Comment on above: Performed By: #### M 200.1000, L100.0100, L300.3900, L300.4310, L503.6005, L500.4050 ####[facility] [address] [place], [address] CRPon 02-02-2025 C-REACTIVE PROT 94.50 mg/L High 0.0-3.0 [facility] Comment on above: Order Comment: Comme nts: may add to ED labs Performed By: #### L 501.5200, L501.6710, L101.9900 ####[facility] [address] [place], [address] Carbon dioxide, total [Moles /volume] in Central venous bloodOrdered By: Nicholas Galarza on 02-02-2025 CO2 [Moles/Vol] 22.4 mmol/L 21.0-32.0 [facility] Chest 1 View (Portable)on Chest 1 View (Portable) Normal [facility] Chloride assayOrdered By: Jose Juan Galarza on 02-02-2025 Chloride [Moles/Vol] 104 mmol/L 98-108 [facility] Comprehensive Metabolic Prof ilon 02-02-2025 Albumin [Mass/Vol] 3.5 g/dL Normal 3.4-4.8 [place] Comment on above: Performed By: #### M 200.1000, L100.0100, L300.3900, L300.4310, L503.6005, L500.4050 ####[facility] [address] [place], [address] Albumin/Globulin [Mass ratio] 1.5 {ratio} Normal 0.9-2.4 [facility] Comment on above: Performed By: #### M 200.1000, L100.0100, L300.3900, L300.4310, L503.6005, L500.4050 ####[facility] [address] [place], [address] ALK PHOS 115 U/L Normal 40-129 [facility] Comment on above: Performed By: #### M 200.1000, L100.0100, L300.3900, L300.4310, L503.6005, L500.4050 ####[facility] [address] [place], [address] ALT [Catalytic activity/Vol] 10 U/L Normal <=46 [facility] Comment on above: Performed By: #### M 200.1000, L100.0100, L300.3900, L300.4310, L503.6005, L500.4050 ####[facility] [address] [place], [address] AST [Catalytic activity/Vol] 15 U/L Normal <=37 [facility] Comment on above: Performed By: #### M 200.1000, L100.0100, L300.3900, L300.4310, L503.6005, L500.4050 ####[facility] [address] [place], [address] Bilirubin [Mass/Vol] 0.50 mg/dL Normal 0.00-1.30 [facility] Comment on above: Performed By: #### M 200.1000, L100.0100, L300.3900, L300.4310, L503.6005, L500.4050 ####[facility] [address] [place], [address] BUN/CRE 17.0 RATIO Normal 10-20 [facility] Comment on above: Performed By: #### M 200.1000, L100.0100, L300.3900, L300.4310, L503.6005, L500.4050 ####[facility] [address] [place], [address] Calcium [Mass/Vol] 8.7 mg/dL Normal 7.6-11.0 [place] Comment on above: Performed By: #### M 200.1000, L100.0100, L300.3900, L300.4310, L503.6005, L500.4050 ####[facility] [address] [place], [address] Chloride [Moles/Vol] 104 mmol/L Normal 98-108 [facility] Comment on above: Performed By: #### M 200.1000, L100.0100, L300.3900, L300.4310, L503.6005, L500.4050 ####[facility] [address] [place], [address] CO2 [Moles/Vol] 22.4 mmol/L Normal 21.0-32.0 [facility] Comment on above: Performed By: #### M 200.1000, L100.0100, L300.3900, L300.4310, L503.6005, L500.4050 ####[facility] [address] [place], [address] Creatinine [Mass/Vol] 1.04 mg/dL Normal 0.70-1.20 [facility] Comment on above: Performed By: #### M 200.1000, L100.0100, L300.3900, L300.4310, L503.6005, L500.4050 ####[facility] [address] [place], [address] ECRCL 79.39 ml/min Normal 50-250 [facility] Comment on above: Performed By: #### M 200.1000, L100.0100, L300.3900, L300.4310, L503.6005, L500.4050 ####[facility] [address] [place], [address] GAP 14 Normal 5-15 [facility] Comment on above: Performed By: #### M 200.1000, L100.0100, L300.3900, L300.4310, L503.6005, L500.4050 ####[facility] [address] [place], [address] GFR/1.73 sq M.predicted among non-blacks MDRD (S/P/Bld) [Vol rate/Area] 74 mL/min/{1.73_m2} Normal >60 [facility] Comment on above: Result Comment: mL/m in/1.73m2 CKD-EPI Creatinine Equation (2020) Performed By: #### M 200.1000, L100.0100, L300.3900, L300.4310, L503.6005, L500.4050 ####[facility] [address] [place], [address] Globulin (S) [Mass/Vol] 2.3 g/dL Normal 2.2-4.2 [facility] Comment on above: Performed By: #### M 200.1000, L100.0100, L300.3900, L300.4310, L503.6005, L500.4050 ####[facility] [address] [place], [address] Glucose [Mass/Vol] 195 mg/dL High 70-99 [place] Comment on above: Performed By: #### M 200.1000, L100.0100, L300.3900, L300.4310, L503.6005, L500.4050 ####[facility] [address] [place], [address] Potassium [Moles/Vol] 3.8 mmol/L Normal 3.3-5.1 [facility] Comment on above: Performed By: #### M 200.1000, L100.0100, L300.3900, L300.4310, L503.6005, L500.4050 ####[facility] [address] [place], [address] Sodium [Moles/Vol] 141 mmol/L Normal 133-145 [place] Comment on above: Performed By: #### M 200.1000, L100.0100, L300.3900, L300.4310, L503.6005, L500.4050 ####[facility] [address] [place], [address] T PROT 5.8 g/dL Low 5.9-8.4 [facility] Comment on above: Performed By: #### M 200.1000, L100.0100, L300.3900, L300.4310, L503.6005, L500.4050 ####[facility] [address] [place], [address] Urea nitrogen [Mass/Vol] 18 mg/dL Normal 4-19 [facility] Comment on above: Performed By: #### M 200.1000, L100.0100, L300.3900, L300.4310, L503.6005, L500.4050 ####[facility] [address] [place], [place], [id number] Emergency Department Summary on 02-02-2025 Emergency Department Summary Normal [facility] Eosinophil percentageOrdered By: Nicholas Galarza on 02-02-2025 Eosinophils/100 WBC (Bld) 0.6 % 0-5 [facility] Erythrocyte Sed Rateon 02-02 SED RATE 23 mm/hr High 0-20 [facility] Comment on above: Performed By: #### L 501.5200, L501.6710, L101.9900 ####[facility] [address] [place], [place], [address] Erythrocyte distribution wid th ratioOrdered By: Nicholas Galarza on 02-02-2025 Erythrocyte distribution width (RBC) [Ratio] 13.6 % 11.6-14.6 [facility] Erythrocyte distribution wid th standard deviationOrdered By: Nicholas Galarza on 02-02-2025 Erythrocyte distribution width (RBC) [Ratio] 42.2 fl 35.1-43.9 [facility] Erythrocyte sedimentation ra teOrdered By: Karen Aly on 02-02-2025 ESR (Bld) [Velocity] 23 mm/h High 0-20 [facility] Foot 2 Viewson 02-02-2025 Foot 2 Views Normal [facility] Glomerular filtration rate ( GFR) estimation/1.73 sq m using serum, plasma, or whole bOrdered By: Nicholas Galarza on 02-02-2025 GFR/1.73 sq M.predicted among non-blacks MDRD (S/P/Bld) [Vol rate/Area] 74 mL/min/{1.73_m2} >60 [facility] Comment on above: mL/min/1.73m2 CKD-EP I Creatinine Equation (2020) H AND P Exam - [facility] 02-02-2025 H&P Exam - Hospitalist Normal [facility] Hematocrit Auto (Bld) [Volum e fraction]Ordered By: Nicholas Galarza on 02-02-2025 Hematocrit (Bld) [Volume fraction] 33.5 % Low 40-54 [facility] Hemoglobin measurementOrdere d By: Nicholas Galarza on 02-02-2025 Hemoglobin (Bld) [Mass/Vol] 10.9 g/dL Low 13.0-16. 5 [facility] Immature granulocytes/100 WB C Auto (Bld)Ordered By: Nicholas Galarza on 02-02-2025 Immature granulocytes/100 WBC (Bld) 0.700 % 0.0-0.9 [facility] Comment on above: IG% - Immature Granu locytes (promyelocytes, myelocytes and metamyelocytes) > 1% indicates that a LEFT SHIFT is Present. International normalized rat io (INR) calculationOrdered By: Nicholas Galarza on 02-02-2025 INR Coag (Bld) [Relative time] 1.4 {INR} [facility] Ketones Test strip Ql (U)Ord ered By: Nicholas Galarza on 02-02-2025 Ketones Ql (U) Negative Negative [facility] Laboratory - Chemistry and C hemistry - challengeOrdered By: Nicholas Galarza on 02-02-2025 AST [Catalytic activity/Vol] 15 U/L <38 [facility] Lactic Acidon 02-02-2025 Lactate [Moles/Vol] 3.1 mmol/L Invalid Interpretation Code 0.0-2.0 [facility] Comment on above: Order Comment: Y Result Comment: Crit ical Result(s) Called at: 2106 by: [place] [id number]??Results read back by same. Performed By: #### M 200.1000, L100.0100, L300.3900, L300.4310, L503.6005, L500.4050 ####[facility] [address] [place], [address] MCV (mean corpuscular volume ) determinationOrdered By: Nicholas Galarza on 02-02-2025 MCV (RBC) [Entitic vol] 85.0 fL 80-94 [facility] Magnesiumon 02-02-2025 Magnesium [Mass/Vol] 0.9 mg/dL Invalid Interpretation Code 1.5-2.2 [facility] Comment on above: Order Comment: Comme nts: may add to ED labs Result Comment: Crit ical Result(s) Called at:2346 by: KIM MARTINEZ??Results read back by same. Performed By: #### L 501.5200, L501.6710, L101.9900 ####[facility] [address] [place], [place], [address] Magnesium measurement (mass/ volume)Ordered By: Karen Aly on 02-02-2025 Magnesium (Unsp spec) [Mass/Vol] 0.9 mg/dL Low 1.5-2.2 [facility] Comment on above: Critical Result(s) C alled at:2346 by: KIM ADRIAN Results read back by same. Mean corpuscular hemoglobin (MCH) determinationOrdered By: Nicholas Galarza on 02-02-2025 MCH (RBC) [Entitic mass] 27.7 pg 27.0-32.0 [facility] Mean corpuscular hemoglobin concentration (MCHC) determinationOrdered By: Nicholas Galarza on 02-02-2025 MCHC (RBC) [Mass/Vol] 32.5 g/dL 32-36 [facility] Mean platelet volume determi nationOrdered By: Nicholas Galarza on 02-02-2025 Platelet mean volume (Bld) [Entitic vol] 9.4 fL 6.2-12.0 [facility] Microscopic analysis of urin e for red blood cells (RBC)Ordered By: Nicholas Galarza on 02-02-2025 Microscopic analysis of urine for red blood cells (RBC) 5-10 SEEN /hpf 0-5 [facility] Monocyte percentageOrdered B y: Nicholas Galarza on 02-02-2025 Monocytes/100 WBC (Bld) 8.7 % 0-10 [facility] Mucus LM Ql (Urine sed)Order ed By: Nicholas Galarza on 02-02-2025 Mucus Ql (Urine sed) 0 SEEN /hpf [facility] Neutrophil percentageOrdered By: Nicholas Galarza on 02-02-2025 Neutrophils/100 WBC (Bld) 86.2 % High 47-70 [facility] Nitrite Test strip Ql (U)Ord ered By: Nicholas Galarza on 02-02-2025 Nitrite Ql (U) Negative Negative [facility] Nucleated red blood cell per centageOrdered By: Nicholas Galarza on 02-02-2025 Nucleated RBC/100 WBC (Bld) [Ratio] 0 % 0-5 [facility] Partial Thromboplast Timeon 02-02-2025 aPTT Coag (Bld) [Time] 34.0 s Normal 24.1-36.2 [facility] Comment on above: Performed By: #### M 200.1000, L100.0100, L300.3900, L300.4310, L503.6005, L500.4050 ####[facility] [address] [place], [place], [id number] Platelet countOrdered By: Jose Juan Galarza on 02-02-2025 Platelets (Bld) [#/Vol] 203 10*3/uL 150-450 [facility] Potassium measurement (mass/ volume)Ordered By: Nicholas Galarza on 02-02-2025 Potassium (Unsp spec) [Mass/Vol] 3.8 mmol/L 3.3-5.1 [facility] Protein Test strip Ql (U)Ord ered By: Nicholas Galarza on 02-02-2025 Protein Ql (U) 30 mg/dl High Negative [facility] Prothrombin Time w/INRon INR Coag (PPP) [Relative time] 1.4 {INR} Normal [facility] Comment on above: Performed By: #### M 200.1000, L100.0100, L300.3900, L300.4310, L503.6005, L500.4050 ####[facility] [address] [place], [address] PT Coag (PPP) [Time] 17.3 s High 11.7-14.9 [facility] Comment on above: Performed By: #### M 200.1000, L100.0100, L300.3900, L300.4310, L503.6005, L500.4050 ####[facility] [address] [place], [address] Prothrombin timeOrdered By: Nichloas Galarza on 02-02-2025 PT Coag (PPP) [Time] 17.3 s High 11.7-14.9 [facility] RBC Auto (Bld) [#/Vol]Ordere d By: Nicholas Galarza on 02-02-2025 RBC (Bld) [#/Vol] 3.94 10*6/uL Low 4.6-6.2 [facility] Serum creatinine measurement (mass/volume)Ordered By: Nicholas Galarza on 02-02-2025 Creatinine [Mass/Vol] 1.04 mg/dL 0.70-1.20 [facility] Serum globulin measurementOr dered By: Nicholas Galarza on 02-02-2025 Globulin (S) [Mass/Vol] 2.3 g/dL 2.2-4.2 [facility] Serum glucose measurement (m ass/volume)Ordered By: Nicholas Galarza on 02-02-2025 Glucose [Mass/Vol] 195 mg/dL High 70-99 [place] Serum or plasma C reactive p rotein measurement (mass/volume)Ordered By: Karen Aly on 02-02-2025 CRP [Mass/Vol] 94.50 mg/L High 0.0-3.0 [facility] Serum or plasma alanine davis otransferase (ALT) measurementOrdered By: Nicholas Galarza on 02-02-2025 ALT [Catalytic activity/Vol] 10 U/L <47 [facility] Serum or plasma albumin antoine urement (mass/volume)Ordered By: Nicholas Galarza on 02-02-2025 Albumin [Mass/Vol] 3.5 g/dL 3.4-4.8 [place] Serum or plasma albumin/glob ulin mass ratioOrdered By: Nicholas Galarza on 02-02-2025 Albumin/Globulin [Mass ratio] 1.5 {ratio} 0.9-2.4 [facility] Serum or plasma alkaline marilin sphatase measurementOrdered By: Nicholas Galarza on 02-02-2025 ALP [Catalytic activity/Vol] 115 U/L 40-129 [facility] Serum or plasma calcium antoine urement (mass/volume)Ordered By: Nicholas Galarza on 02-02-2025 Calcium [Mass/Vol] 8.7 mg/dL 7.6-11.0 [place] Serum or plasma urea nitroge n measurement (mass/volume)Ordered By: Nicholas Galarza on 02-02-2025 Urea nitrogen [Mass/Vol] 18 mg/dL 4-19 [facility] Sodium levelOrdered By: Supriya Galarza on 02-02-2025 Sodium [Moles/Vol] 141 mmol/L 133-145 [place] Squamous epithelial cells de tection in urine sediment by light microscopyOrdered By: Nicholas Galarza on 02-02-2025 Epithelial cells.squamous LM Ql (Urine sed) 0-5 SEEN /hpf 0-5 [facility] Total proteinOrdered By: Hermes Galarza on 02-02-2025 Protein [Mass/Vol] 5.8 g/dL Low 5.9-8.4 [place] Urinalysis, Completeon 02-02 BACTERIA 1+ /hpf Normal None Seen [facility] Comment on above: Order Comment: LEILA TER SPECIMEN Performed By: #### M 100.2200, L400.0001 ####[facility] [address] [place], [address] EPI,SQUAMOUS 0-5 SEEN Normal 0-5 [facility] Comment on above: Order Comment: LEILA TER SPECIMEN Performed By: #### M 100.2200, L400.0001 ####[facility] [address] [place], [address] RBC 5-10 SEEN Normal 0-5 [facility] Comment on above: Order Comment: LEILA TER SPECIMEN Performed By: #### M 100.2200, L400.0001 ####[facility] [address] [place], [address] WBC 5-10 SEEN Normal 0-5 [facility] Comment on above: Order Comment: LEILA TER SPECIMEN Performed By: #### M 100.2200, L400.0001 ####[facility] [address] [place], [address] Mucus Ql (Urine sed) 0 SEEN Normal [facility] Comment on above: Order Comment: LEILA TER SPECIMEN Performed By: #### M 100.2200, L400.0001 ####[facility] [address] [place], [address] Urine Legionella pneumophila antigen detectionOrdered By: Karen Aly on 02-02-2025 L. pneumophila Ag Ql (U) [facility] Urine clarityOrdered By: Hermes Galarza on 02-02-2025 Clarity (U) Clear Clear [facility] Urine color determinationOrd ered By: Nicholas Galarza on 02-02-2025 Color (U) Yellow Yellow [facility] Urine cultureOrdered By: Hermes Galarza on 02-02-2025 Bacteria identified Cx Nom (U) Culture exhibits no growth. [facility] Urine glucose detectionOrder ed By: Nicholas Galarza on 02-02-2025 Glucose Ql (U) 250 mg/dl High Normal [facility] Urine leukocyte esterase det ection by dipstickOrdered By: Nicholas Galarza on 02-02-2025 Leukocyte esterase Test strip Ql (U) Negative Negative [facility] Urine pHOrdered By: Nicholas ron on 02-02-2025 pH (U) 5.0 [pH] 5.0 - 8.0 [facility] Urine sediment bacteria coun t by microscopy (number/high power field)Ordered By: Nicholas Galarza on 02-02-2025 Bacteria LM.HPF (Urine sed) [#/Area] 1 /[HPF] None Seen [facility] Urine specific gravity measu rementOrdered By: Nicholas Galarza on 02-02-2025 Specific gravity (U) [Rel density] 1.015 1.002-1.03 0 [facility] Urine urobilinogen measureme ntOrdered By: Nicholas Galarza on 02-02-2025 Urobilinogen Ql (U) Normal mg/dl Normal [facility] White blood cell (WBC) count Ordered By: Nicholas Galarza on 02-02-2025 WBC (Bld) [#/Vol] 13.9 10*3/uL High 4.4-11.0 [facility] White blood cell countOrdere d By: Nicholas Galarza on 02-02-2025 White blood cell count 5-10 SEEN /hpf 0-5 [facility] Anion gap in Serum or Plasma Ordered By: Walter Becker on 12-22-2024 Anion gap [Moles/Vol] 10 mmol/L 5-15 [facility] Automated blood erythrocyte countOrdered By: Walter Becker on 12-22-2024 RBC (Bld) [#/Vol] 4.43 10*6/uL Low 4.6-6.2 [facility] Comment on above: Order Comment: 215.2 Performed By: #### L 500.4050, L100.0500, L501.9985 ####[facility] [address] [place], [place], [id number] Automated blood hematocrit ( percentage)Ordered By: Walter Becker on 12-22-2024 Hematocrit (Bld) [Volume fraction] 37.9 % Low 40-54 [facility] Comment on above: Order Comment: 215.2 Performed By: #### L 500.4050, L100.0500, L501.9985 ####[facility] [address] [place], [address] BUN/creatinine ratioOrdered By: Walter Becker on 12-22-2024 Urea nitrogen/Creatinine [Mass ratio] 19.8 mg/mg 10-20 [facility] Bilirubin, totalOrdered By: Walter Becker on 12-22-2024 Bilirubin [Mass/Vol] 0.43 mg/dL 0.00-1.30 [facility] CBC-Complete Blood Cnt No Di ffon 12-22-2024 RDW SD 41.9 fl Normal 35.1-43.9 [facility] Comment on above: Order Comment: 215.2 Performed By: #### L 500.4050, L100.0500, L501.9985 ####[facility] [address] [place] [place], [address] Carbon dioxide, total [Moles /volume] in Central venous bloodOrdered By: Walter Becker on 12-22-2024 CO2 [Moles/Vol] 26.7 mmol/L 21.0-32.0 [facility] Chloride assayOrdered By: Horner on 12-22-2024 Chloride [Moles/Vol] 103 mmol/L 98-108 [facility] Comprehensive Metabolic Prof ilon 12-22-2024 Albumin [Mass/Vol] 3.6 g/dL Normal 3.4-4.8 [place] Comment on above: Order Comment: 215.2 Performed By: #### L 500.4050, L100.0500, L501.9985 ####[facility] [address] [place], [address] Albumin/Globulin [Mass ratio] 1.7 {ratio} Normal 0.9-2.4 [facility] Comment on above: Order Comment: 215.2 Performed By: #### L 500.4050, L100.0500, L501.9985 ####[facility] [address] [place], [address] ALK PHOS 104 U/L Normal 40-129 [facility] Comment on above: Order Comment: 215.2 Performed By: #### L 500.4050, L100.0500, L501.9985 ####[facility] [address] [place], [address] ALT [Catalytic activity/Vol] 13 U/L Normal <=46 [facility] Comment on above: Order Comment: 215.2 Performed By: #### L 500.4050, L100.0500, L501.9985 ####[facility] [address] [place], [address] AST [Catalytic activity/Vol] 14 U/L Normal <=37 [facility] Comment on above: Order Comment: 215.2 Performed By: #### L 500.4050, L100.0500, L501.9985 ####[facility] [address] [place], [address] Bilirubin [Mass/Vol] 0.43 mg/dL Normal 0.00-1.30 [facility] Comment on above: Order Comment: 215.2 Performed By: #### L 500.4050, L100.0500, L501.9985 ####[facility] [address] [place], [address] BUN/CRE 19.8 RATIO Normal 10-20 [facility] Comment on above: Order Comment: 215.2 Performed By: #### L 500.4050, L100.0500, L501.9985 ####[facility] [address] [place], [address] Calcium [Mass/Vol] 9.5 mg/dL Normal 7.6-11.0 [place] Comment on above: Order Comment: 215.2 Performed By: #### L 500.4050, L100.0500, L501.9985 ####[facility] [address] [place], [address] Chloride [Moles/Vol] 103 mmol/L Normal 98-108 [facility] Comment on above: Order Comment: 215.2 Performed By: #### L 500.4050, L100.0500, L501.9985 ####[facility] [address] [place], [address] CO2 [Moles/Vol] 26.7 mmol/L Normal 21.0-32.0 [facility] Comment on above: Order Comment: 215.2 Performed By: #### L 500.4050, L100.0500, L501.9985 ####[facility] [address] [place], [address] Creatinine [Mass/Vol] 1.04 mg/dL Normal 0.70-1.20 [facility] Comment on above: Order Comment: 215.2 Performed By: #### L 500.4050, L100.0500, L501.9985 ####[facility] [address] [place], [address] GAP 10 Normal 5-15 [facility] Comment on above: Order Comment: 215.2 Performed By: #### L 500.4050, L100.0500, L501.9985 ####[facility] [address] [place], [address] GFR/1.73 sq M.predicted among non-blacks MDRD (S/P/Bld) [Vol rate/Area] 74 mL/min/{1.73_m2} Normal >60 [facility] Comment on above: Order Comment: 215.2 Result Comment: mL/m in/1.73m2 CKD-EPI Creatinine Equation (2020) Performed By: #### L 500.4050, L100.0500, L501.9985 ####[facility] [address] [place], [address] Globulin (S) [Mass/Vol] 2.2 g/dL Normal 2.2-4.2 [facility] Comment on above: Order Comment: 215.2 Performed By: #### L 500.4050, L100.0500, L501.9985 ####[facility] [address] [place], [address] Glucose [Mass/Vol] 131 mg/dL High 70-99 [place] Comment on above: Order Comment: 215.2 Performed By: #### L 500.4050, L100.0500, L501.9985 ####[facility] [address] [place], [address] Potassium [Moles/Vol] 4.2 mmol/L Normal 3.3-5.1 [facility] Comment on above: Order Comment: 215.2 Performed By: #### L 500.4050, L100.0500, L501.9985 ####[facility] [address] [place], [address] Sodium [Moles/Vol] 141 mmol/L Normal 133-145 [place] Comment on above: Order Comment: 215.2 Performed By: #### L 500.4050, L100.0500, L501.9985 ####[facility] [address] [place], [address] T PROT 5.8 g/dL Low 5.9-8.4 [facility] Comment on above: Order Comment: 215.2 Performed By: #### L 500.4050, L100.0500, L501.9985 ####[facility] [address] [place], [address] Urea nitrogen [Mass/Vol] 21 mg/dL High 4-19 [facility] Comment on above: Order Comment: 215.2 Performed By: #### L 500.4050, L100.0500, L501.9985 ####[facility] [address] [place], [address] Erythrocyte distribution wid th ratioOrdered By: Walter Becker on 12-22-2024 Erythrocyte distribution width (RBC) [Ratio] 13.5 % Normal 11.6-14.6 [facility] Comment on above: Order Comment: 215.2 Performed By: #### L 500.4050, L100.0500, L501.9985 ####[facility] [address] [place], [place], [id number] Erythrocyte distribution wid th standard deviationOrdered By: Walter Becker on 12-22-2024 Erythrocyte distribution width (RBC) [Ratio] 41.9 fl 35.1-43.9 [facility] Glomerular filtration rate ( GFR) estimation/1.73 sq m using serum, plasma, or whole bOrdered By: Walter Becker on 12-22-2024 GFR/1.73 sq M.predicted among non-blacks MDRD (S/P/Bld) [Vol rate/Area] 74 mL/min/{1.73_m2} >60 [facility] Comment on above: mL/min/1.73m2 CKD-EP I Creatinine Equation (2020) Hemoglobin A1con 12-22-2024 HbA1c (Bld) [Mass fraction] 7.0 % High <=5.6 [facility] Comment on above: Order Comment: 215.2 Result Comment: Norm al < 5.7 % Prediabetic 5.7 - 6.4 % Diabetic >or= 6.5 % Please note range changes. Performed By: #### L 500.4050, L100.0500, L501.9985 ####[facility] [address] [place], [place], [id number] Hemoglobin A1c percentageOrd ered By: Walter Becker on 12-22-2024 HbA1c (Bld) [Mass fraction] 7.0 % High <5.7 [facility] Comment on above: Normal < 5.7 % Predi abetic 5.7 - 6.4 % Diabetic >or= 6.5 % Please note range changes. Hemoglobin measurementOrdere d By: Walter Becker on 12-22-2024 Hemoglobin (Bld) [Mass/Vol] 12.4 g/dL Low 13.0-16. 5 [facility] Comment on above: Order Comment: 215.2 Performed By: #### L 500.4050, L100.0500, L501.9985 ####[facility] [address] [place], [address] Laboratory - Chemistry and C hemistry - challengeOrdered By: Walter Becker on 12-22-2024 AST [Catalytic activity/Vol] 14 U/L <38 [facility] MCV (mean corpuscular volume ) determinationOrdered By: Walter Becker on 12-22-2024 MCV (RBC) [Entitic vol] 85.6 fL Normal 80-94 [facility] Comment on above: Order Comment: 215.2 Performed By: #### L 500.4050, L100.0500, L501.9985 ####[facility] [address] [place], [address] Mean corpuscular hemoglobin (MCH) determinationOrdered By: Walter Becker on 12-22-2024 MCH (RBC) [Entitic mass] 28.0 pg Normal 27.0-32.0 [facility] Comment on above: Order Comment: 215.2 Performed By: #### L 500.4050, L100.0500, L501.9985 ####[facility] [address] [place], [address] Mean corpuscular hemoglobin concentration (MCHC) determinationOrdered By: Walter Becker on 12-22-2024 MCHC (RBC) [Mass/Vol] 32.7 g/dL Normal 32-36 [facility] Comment on above: Order Comment: 215.2 Performed By: #### L 500.4050, L100.0500, L501.9985 ####[facility] [address] [place], [address] Mean platelet volume determi nationOrdered By: Walter Becker on 12-22-2024 Platelet mean volume (Bld) [Entitic vol] 9.5 fL Normal 6.2-12.0 [facility] Comment on above: Order Comment: 215.2 Performed By: #### L 500.4050, L100.0500, L501.9985 ####[facility] [address] [place], [address] No Panel InformationOrdered By: Walter Becker on 12-22-2024 14 U/L <38 [facility] Platelet countOrdered By: Horner on 12-22-2024 Platelets (Bld) [#/Vol] 214 10*3/uL Normal 150-450 [facility] Comment on above: Order Comment: 215.2 Performed By: #### L 500.4050, L100.0500, L501.9985 ####[facility] [address] [place], [place], [address] Potassium measurement (mass/ volume)Ordered By: Walter Becker on 12-22-2024 Potassium (Unsp spec) [Mass/Vol] 4.2 mmol/L 3.3-5.1 [facility] Serum creatinine measurement (mass/volume)Ordered By: Walter Becker on 12-22-2024 Creatinine [Mass/Vol] 1.04 mg/dL 0.70-1.20 [facility] Serum globulin measurementOr dered By: Walter Becker on 12-22-2024 Globulin (S) [Mass/Vol] 2.2 g/dL 2.2-4.2 [facility] Serum glucose measurement (m ass/volume)Ordered By: Walter Becker on 12-22-2024 Glucose [Mass/Vol] 131 mg/dL High 70-99 [place] Serum or plasma alanine davis otransferase (ALT) measurementOrdered By: Walter Becker on 12-22-2024 ALT [Catalytic activity/Vol] 13 U/L <47 [facility] Serum or plasma albumin antoine urement (mass/volume)Ordered By: Walter Becker on 12-22-2024 Albumin [Mass/Vol] 3.6 g/dL 3.4-4.8 [place] Serum or plasma albumin/glob ulin mass ratioOrdered By: Walter Becker on 12-22-2024 Albumin/Globulin [Mass ratio] 1.7 {ratio} 0.9-2.4 [facility] Serum or plasma alkaline marilin sphatase measurementOrdered By: Walter Becker on 12-22-2024 ALP [Catalytic activity/Vol] 104 U/L 40-129 [facility] Serum or plasma calcium antoine urement (mass/volume)Ordered By: Walter Becker on 12-22-2024 Calcium [Mass/Vol] 9.5 mg/dL 7.6-11.0 [place] Serum or plasma urea nitroge n measurement (mass/volume)Ordered By: Walter Becker on 12-22-2024 Urea nitrogen [Mass/Vol] 21 mg/dL High 4-19 [facility] Sodium levelOrdered By: Walter Becker on 12-22-2024 Sodium [Moles/Vol] 141 mmol/L 133-145 [place] Total proteinOrdered By: Crystal Becker on 12-22-2024 Protein [Mass/Vol] 5.8 g/dL Low 5.9-8.4 [place] White blood cell (WBC) count Ordered By: Walter Becker on 12-22-2024 WBC (Bld) [#/Vol] 9.4 10*3/uL Normal 4.4-11.0 [place] Comment on above: Order Comment: 215.2 Performed By: #### L 500.4050, L100.0500, L501.9985 ####[facility] [address] [facility] [place], [place], [address] Vitamin D,25 Hydroxyon 12-16 Vitamin D 25-OH 31.8 ng/mL Normal 30-100 [facility] Comment on above: Order Comment: 215.2 Result Comment: Laure min D StatusDeficiency: <20 ng/mL (50nmol/L)Insufficiency: 20-30 ng/mL (50-75 nmol/L)Sufficiency: 30-100 ng/mL (75-250 nmol/L)Toxicity: >100 ng/mL (>250 nmol/L) Performed By: #### L 506.1001 ####[facility] [address] [place], [address] Urine Cultureon 11-25-2024 URC Culture exhibits no growth. Normal [facility] Comment on above: Performed By: #### L 400.0001, L100.0500, M100.2200, L500.4050 ####[facility] [address] [place], [address] Anion gap in Serum or Plasma Ordered By: Walter Becker on 11-24-2024 Anion gap [Moles/Vol] 14 mmol/L - [facility] BUN/creatinine ratioOrdered By: Walter Becker on 11-24-2024 Urea nitrogen/Creatinine [Mass ratio] 19.5 mg/mg - [facility] Bilirubin Test strip Ql (U)O rdered By: Walter Becker on 11-24-2024 Bilirubin Ql (U) Negative Negative [facility] Bilirubin, totalOrdered By: Walter Becker on 11-24-2024 Bilirubin [Mass/Vol] 0.34 mg/dL 0.00-1.30 [facility] CBC-Complete Blood Cnt No Di ffon 11-24-2024 Erythrocyte distribution width (RBC) [Ratio] 13.4 % Normal 11.6-14.6 [facility] Comment on above: Order Comment: 215.2 Performed By: #### L 400.0001, L100.0500, M100.2200, L500.4050 ####[facility] [address], [address] Hematocrit (Bld) [Volume fraction] 38.0 % Low 40-54 [facility] Comment on above: Order Comment: 215.2 Performed By: #### L 400.0001, L100.0500, M100.2200, L500.4050 ####[facility] [address] [place], [address] Hemoglobin (Bld) [Mass/Vol] 12.1 g/dL Low 13.0-16. 5 [facility] Comment on above: Order Comment: 215.2 Performed By: #### L 400.0001, L100.0500, M100.2200, L500.4050 ####[facility] [address] [place], [address] MCH (RBC) [Entitic mass] 27.6 pg Normal 27.0-32.0 [facility] Comment on above: Order Comment: 215.2 Performed By: #### L 400.0001, L100.0500, M100.2200, L500.4050 ####[facility] [address] [place], [address] MCHC (RBC) [Mass/Vol] 31.8 g/dL Low 32-36 [facility] Comment on above: Order Comment: 215.2 Performed By: #### L 400.0001, L100.0500, M100.2200, L500.4050 ####[facility] [address] [place], [address] MCV (RBC) [Entitic vol] 86.6 fL Normal 80-94 [facility] Comment on above: Order Comment: 215.2 Performed By: #### L 400.0001, L100.0500, M100.2200, L500.4050 ####[facility] [address] [place], [address] Platelet mean volume (Bld) [Entitic vol] 9.4 fL Normal 6.2-12.0 [facility] Comment on above: Order Comment: 215.2 Performed By: #### L 400.0001, L100.0500, M100.2200, L500.4050 ####[facility] [address] [place], [address] Platelets (Bld) [#/Vol] 200 10*3/uL Normal 150-450 [facility] Comment on above: Order Comment: 215.2 Performed By: #### L 400.0001, L100.0500, M100.2200, L500.4050 ####[facility] [address] [place], [address] RBC (Bld) [#/Vol] 4.39 10*6/uL Low 4.6-6.2 [facility] Comment on above: Order Comment: 215.2 Performed By: #### L 400.0001, L100.0500, M100.2200, L500.4050 ####[facility] [address] [place], [address] RDW SD 41.4 fl Normal 35.1-43.9 [facility] Comment on above: Order Comment: 215.2 Performed By: #### L 400.0001, L100.0500, M100.2200, L500.4050 ####[facility] [address] [place], [address] WBC (Bld) [#/Vol] 8.9 10*3/uL Normal 4.4-11.0 [place] Comment on above: Order Comment: 215.2 Performed By: #### L 400.0001, L100.0500, M100.2200, L500.4050 ####[facility] [address] [place], [address] Carbon dioxide, total [Moles /volume] in Central venous bloodOrdered By: Walter Becker on 11-24-2024 CO2 [Moles/Vol] 21.7 mmol/L 21.0-32.0 [facility] Chloride assayOrdered By: Horner on 11-24-2024 Chloride [Moles/Vol] 105 mmol/L 98-108 [facility] Comprehensive Metabolic Prof ilon 11-24-2024 Albumin [Mass/Vol] 3.3 g/dL Low 3.4-4.8 [place] Comment on above: Order Comment: 215.2 Performed By: #### L 400.0001, L100.0500, M100.2200, L500.4050 ####[facility] [address] [place], [address] Albumin/Globulin [Mass ratio] 1.6 {ratio} Normal 0.9-2.4 [facility] Comment on above: Order Comment: 215.2 Performed By: #### L 400.0001, L100.0500, M100.2200, L500.4050 ####[facility] [address] [place], [address] ALK PHOS 101 U/L Normal 40-129 [facility] Comment on above: Order Comment: 215.2 Performed By: #### L 400.0001, L100.0500, M100.2200, L500.4050 ####[facility] [address] [place], [address] ALT [Catalytic activity/Vol] 14 U/L Normal <=46 [facility] Comment on above: Order Comment: 215.2 Performed By: #### L 400.0001, L100.0500, M100.2200, L500.4050 ####[facility] [address] [place], [address] AST [Catalytic activity/Vol] 16 U/L Normal <=37 [facility] Comment on above: Order Comment: 215.2 Performed By: #### L 400.0001, L100.0500, M100.2200, L500.4050 ####[facility] [address] [place], [address] Bilirubin [Mass/Vol] 0.34 mg/dL Normal 0.00-1.30 [facility] Comment on above: Order Comment: 215.2 Performed By: #### L 400.0001, L100.0500, M100.2200, L500.4050 ####[facility] [address] [place], [address] BUN/CRE 19.5 RATIO Normal 10-20 [facility] Comment on above: Order Comment: 215.2 Performed By: #### L 400.0001, L100.0500, M100.2200, L500.4050 ####[facility] [address] [place], [address] Calcium [Mass/Vol] 8.9 mg/dL Normal 7.6-11.0 [place] Comment on above: Order Comment: 215.2 Performed By: #### L 400.0001, L100.0500, M100.2200, L500.4050 ####[facility] [address] [place], [address] Chloride [Moles/Vol] 105 mmol/L Normal 98-108 [facility] Comment on above: Order Comment: 215.2 Performed By: #### L 400.0001, L100.0500, M100.2200, L500.4050 ####[facility] [address] [place], [address] CO2 [Moles/Vol] 21.7 mmol/L Normal 21.0-32.0 [facility] Comment on above: Order Comment: 215.2 Performed By: #### L 400.0001, L100.0500, M100.2200, L500.4050 ####[facility] [address] [place], [address] Creatinine [Mass/Vol] 1.15 mg/dL Normal 0.70-1.20 [facility] Comment on above: Order Comment: 215.2 Performed By: #### L 400.0001, L100.0500, M100.2200, L500.4050 ####[facility] [address] [place], [address] GAP 14 Normal 5-15 [facility] Comment on above: Order Comment: 215.2 Performed By: #### L 400.0001, L100.0500, M100.2200, L500.4050 ####[facility] [address] [place], [address] GFR/1.73 sq M.predicted among non-blacks MDRD (S/P/Bld) [Vol rate/Area] 66 mL/min/{1.73_m2} Normal >60 [facility] Comment on above: Order Comment: 215.2 Result Comment: mL/m in/1.73m2 CKD-EPI Creatinine Equation (2020) Performed By: #### L 400.0001, L100.0500, M100.2200, L500.4050 ####[facility] [address] [place], [address] Globulin (S) [Mass/Vol] 2.0 g/dL Low 2.2-4.2 [facility] Comment on above: Order Comment: 215.2 Performed By: #### L 400.0001, L100.0500, M100.2200, L500.4050 ####[facility] [address] [place], [address] Glucose [Mass/Vol] 139 mg/dL High 70-99 [place] Comment on above: Order Comment: 215.2 Performed By: #### L 400.0001, L100.0500, M100.2200, L500.4050 ####[facility] [address] [place], [address] Potassium [Moles/Vol] 4.2 mmol/L Normal 3.3-5.1 [facility] Comment on above: Order Comment: 215.2 Performed By: #### L 400.0001, L100.0500, M100.2200, L500.4050 ####[facility] [address] [place], [address] Sodium [Moles/Vol] 141 mmol/L Normal 133-145 [place] Comment on above: Order Comment: 215.2 Performed By: #### L 400.0001, L100.0500, M100.2200, L500.4050 ####[facility] [address] [place], [address] T PROT 5.3 g/dL Low 5.9-8.4 [facility] Comment on above: Order Comment: 215.2 Performed By: #### L 400.0001, L100.0500, M100.2200, L500.4050 ####[facility] [address] [place], [address] Urea nitrogen [Mass/Vol] 22 mg/dL High 4-19 [facility] Comment on above: Order Comment: 215.2 Performed By: #### L 400.0001, L100.0500, M100.2200, L500.4050 ####[facility] [address] [place], [address] Erythrocyte distribution wid th ratioOrdered By: Walter Becker on 11-24-2024 Erythrocyte distribution width (RBC) [Ratio] 13.4 % 11.6-14.6 [facility] Erythrocyte distribution wid th standard deviationOrdered By: Walter Becker on 11-24-2024 Erythrocyte distribution width (RBC) [Ratio] 41.4 fl 35.1-43.9 [facility] Glomerular filtration rate ( GFR) estimation/1.73 sq m using serum, plasma, or whole bOrdered By: Walter Becker on 11-24-2024 GFR/1.73 sq M.predicted among non-blacks MDRD (S/P/Bld) [Vol rate/Area] 66 mL/min/{1.73_m2} >60 [facility] Comment on above: mL/min/1.73m2 CKD-EP I Creatinine Equation (2020) Hematocrit Auto (Bld) [Volum e fraction]Ordered By: Walter Becker on 11-24-2024 Hematocrit (Bld) [Volume fraction] 38.0 % Low 40-54 [facility] Hemoglobin measurementOrdere d By: Walter Becker on 11-24-2024 Hemoglobin (Bld) [Mass/Vol] 12.1 g/dL Low 13.0-16. 5 [facility] Ketones Test strip Ql (U)Ord ered By: Walter Becker on 11-24-2024 Ketones Ql (U) Negative Negative [facility] Laboratory - Chemistry and C hemistry - challengeOrdered By: Walter Becker on 11-24-2024 AST [Catalytic activity/Vol] 16 U/L <38 [facility] MCV (mean corpuscular volume ) determinationOrdered By: Walter Becker on 11-24-2024 MCV (RBC) [Entitic vol] 86.6 fL 80-94 [facility] Mean corpuscular hemoglobin (MCH) determinationOrdered By: Walter Becker on 11-24-2024 MCH (RBC) [Entitic mass] 27.6 pg 27.0-32.0 [facility] Mean corpuscular hemoglobin concentration (MCHC) determinationOrdered By: Walter Becker on 11-24-2024 MCHC (RBC) [Mass/Vol] 31.8 g/dL Low 32-36 [facility] Mean platelet volume determi nationOrdered By: Walter Becker on 11-24-2024 Platelet mean volume (Bld) [Entitic vol] 9.4 fL 6.2-12.0 [facility] Microscopic analysis of urin e for red blood cells (RBC)Ordered By: Walter Becker on 11-24-2024 Microscopic analysis of urine for red blood cells (RBC) 0 SEEN /hpf 0-5 [facility] Mucus LM Ql (Urine sed)Order ed By: Walter Becker on 11-24-2024 Mucus Ql (Urine sed) 0 SEEN /hpf [facility] Nitrite Test strip Ql (U)Ord ered By: Walter Becker on 11-24-2024 Nitrite Ql (U) Negative Negative [facility] No Panel InformationOrdered By: Walter Becker on 11-24-2024 16 U/L <38 [facility] Platelet countOrdered By: Horner on 11-24-2024 Platelets (Bld) [#/Vol] 200 10*3/uL 150-450 [facility] Potassium measurement (mass/ volume)Ordered By: Walter Becker on 11-24-2024 Potassium (Unsp spec) [Mass/Vol] 4.2 mmol/L 3.3-5.1 [facility] Protein Test strip Ql (U)Ord ered By: Walter Becker on 11-24-2024 Protein Ql (U) Negative Negative [facility] RBC Auto (Bld) [#/Vol]Ordere d By: Walter Becker on 11-24-2024 RBC (Bld) [#/Vol] 4.39 10*6/uL Low 4.6-6.2 [facility] Serum creatinine measurement (mass/volume)Ordered By: Walter Becker on 11-24-2024 Creatinine [Mass/Vol] 1.15 mg/dL 0.70-1.20 [facility] Serum globulin measurementOr dered By: Walter Becker on 11-24-2024 Globulin (S) [Mass/Vol] 2.0 g/dL Low 2.2-4.2 [facility] Serum glucose measurement (m ass/volume)Ordered By: Walter Becker on 11-24-2024 Glucose [Mass/Vol] 139 mg/dL High 70-99 [place] Serum or plasma alanine davis otransferase (ALT) measurementOrdered By: Walter Becker on 11-24-2024 ALT [Catalytic activity/Vol] 14 U/L <47 [facility] Serum or plasma albumin antoine urement (mass/volume)Ordered By: Walter Becker on 11-24-2024 Albumin [Mass/Vol] 3.3 g/dL Low 3.4-4.8 [place] Serum or plasma albumin/glob ulin mass ratioOrdered By: Walter Becker on 11-24-2024 Albumin/Globulin [Mass ratio] 1.6 {ratio} 0.9-2.4 [facility] Serum or plasma alkaline marilin sphatase measurementOrdered By: Walter Becker on 11-24-2024 ALP [Catalytic activity/Vol] 101 U/L 40-129 [facility] Serum or plasma calcium antoine urement (mass/volume)Ordered By: Walter Becker on 11-24-2024 Calcium [Mass/Vol] 8.9 mg/dL 7.6-11.0 [place] Serum or plasma urea nitroge n measurement (mass/volume)Ordered By: Walter Becker on 11-24-2024 Urea nitrogen [Mass/Vol] 22 mg/dL High 4-19 [facility] Sodium levelOrdered By: Walter Becker on 11-24-2024 Sodium [Moles/Vol] 141 mmol/L 133-145 [place] Squamous epithelial cells de tection in urine sediment by light microscopyOrdered By: Walter Becker on 11-24-2024 Epithelial cells.squamous LM Ql (Urine sed) 0 SEEN /hpf 0-5 [facility] Total proteinOrdered By: Crystal Becker on 11-24-2024 Protein [Mass/Vol] 5.3 g/dL Low 5.9-8.4 [place] Urinalysis, Completeon 11-24 WBC 0-5 SEEN Normal 0-5 [facility] Comment on above: Order Comment: LEILA TER SPECIMEN Performed By: #### L 400.0001, L100.0500, M100.2200, L500.4050 ####[facility] [address] [place], [address] BACTERIA 0 SEEN Normal None Seen [facility] Comment on above: Order Comment: LEILA TER SPECIMEN Performed By: #### L 400.0001, L100.0500, M100.2200, L500.4050 ####[facility] [address] [place], [address] EPI,SQUAMOUS 0 SEEN Normal 0-5 [facility] Comment on above: Order Comment: LEILA TER SPECIMEN Performed By: #### L 400.0001, L100.0500, M100.2200, L500.4050 ####[facility] [address] [place], [address] Mucus Ql (Urine sed) 0 SEEN Normal [facility] Comment on above: Order Comment: LEILA TER SPECIMEN Performed By: #### L 400.0001, L100.0500, M100.2200, L500.4050 ####[facility] [address] [place], [address] RBC 0 SEEN Normal 0-5 [facility] Comment on above: Order Comment: LEILA TER SPECIMEN Performed By: #### L 400.0001, L100.0500, M100.2200, L500.4050 ####[facility] [address] [place], [address] Urine clarityOrdered By: Crystal Becker on 11-24-2024 Clarity (U) Clear Clear [facility] Urine color determinationOrd ered By: Walter Becker on 11-24-2024 Color (U) Yellow Yellow [facility] Urine cultureOrdered By: Crystal Becker on 11-24-2024 Bacteria identified Cx Nom (U) Culture exhibits no growth. [facility] Urine glucose detectionOrder ed By: Walter Becker on 11-24-2024 Glucose Ql (U) Normal mg/dl Normal [facility] Urine leukocyte esterase det ection by dipstickOrdered By: Walter Becker on 11-24-2024 Leukocyte esterase Test strip Ql (U) Negative Negative [facility] Urine pHOrdered By: Walter floyd on 11-24-2024 pH (U) 6.0 [pH] 5.0 - 8.0 [facility] Urine sediment bacteria coun t by microscopy (number/high power field)Ordered By: Walter Becker on 11-24-2024 Bacteria LM.HPF (Urine sed) [#/Area] 0 /[HPF] None Seen [facility] Urine specific gravity measu rementOrdered By: Walter Becker on 11-24-2024 Specific gravity (U) [Rel density] 1.010 1.002-1.03 0 [facility] Urine urobilinogen measureme ntOrdered By: Walter Becker on 11-24-2024 Urobilinogen Ql (U) Normal mg/dl Normal [facility] White blood cell (WBC) count Ordered By: Walter Becker on 11-24-2024 WBC (Bld) [#/Vol] 8.9 10*3/uL 4.4-11.0 [place] White blood cell countOrdere d By: Walter Becker on 11-24-2024 White blood cell count 0-5 SEEN /hpf 0-5 [facility] Kiara 11-06-2024 CNPN Telephone (4CQ) KIRILLRICHARD Bonilla ([id number]) 1945 M Date Time Provider Department 11/06/24 ABDULAZIZ CALDERA 4CQ During your visit today, we recorded the following information about you: Ann Ramyond 11/06/2024 10:55 AM Signed Spoke with spouse as patient is over due for visit with PCP , stated patient is at [facility] in [place]. We did not remove PCP. Abdulaziz Caldera [...] time a week. - blood sugar diagnostic ([place] ULTRA TEST) test strip Test blood sugar(s) [...] Status:Closed by AMADA COHN on 11/06/24 Normal [facility] Cardiology Visit Reporton Cardiology Visit Report Normal [facility] Calculated very low density lipoprotein (VLDL) cholesterol measurementOrdered By: Walter Becker on 10-05-2024 VLDL Cholesterol 41 mg/dL High 5-40 [facility] LDL calc ser/plasOrdered By: Walter Becker on 10-05-2024 LDL Cholesterol, Calculated 31 mg/dL [facility] Comment on above: Wxqptyfmts=295-751 m g/dL & Higher Twyg=610 mg/dL or greater Lipid Profileon 10-05-2024 CHOL:HDL 3.37 Normal [facility] Comment on above: Order Comment: 215.2 Performed By: #### L 500.4100 ####[facility] [address] [place], [address] Cholesterol [Mass/Vol] 103 mg/dL Normal <=200 [facility] Comment on above: Order Comment: 215.2 Result Comment: Chol esterol level, Desirable <200 mg/dLBorderline high cholesterol 200-239 mg/dLHigh cholesterol >=240 mg/dLRecommendations of the NCEP Adult Treatment Panel for thefollowing risk-cutoff thresholds for the [place] Americanpulation. Performed By: #### L 500.4100 ####[facility] [address] [place], [address] Cholesterol in HDL [Mass/Vol] 31 mg/dL Low [facility] Comment on above: Order Comment: 215.2 Result Comment: Stephanie onal Cholesterol Education Program (NCEP) guidelines:<40 mg/dL: Low HDL-cholesterol (major risk factor for CHD)>= 60 mg/dL: High HDL-cholesterol (negative risk factor forCHD)HDL-cholesterol is affected by a number of factors, e.g.smoking, exercise, hormones, sex and age. Performed By: #### L 500.4100 ####[facility] [address] [place], [address] Cholesterol in LDL [Mass/Vol] 31 mg/dL Normal [facility] Comment on above: Order Comment: 215.2 Result Comment: Bord hvgwid=424-097 mg/dL Higher Adhr=524 mg/dL or greater Performed By: #### L 500.4100 ####[facility] [address] [place], [address] Cholesterol in VLDL [Mass/Vol] 41 mg/dL High 5-40 [facility] Comment on above: Order Comment: 215.2 Performed By: #### L 500.4100 ####[facility] [address] [place], [address] Triglyceride [Mass/Vol] 207 mg/dL High [facility] Comment on above: Order Comment: 215.2 Result Comment: The drugs N-Acetylcysteine and Metamizole may falselydepress this assay.Normal range: <150 mg/dLBorderline High: 150-199 mg/dLHigh: 200-499 mg/dLVery High: >500 mg/dL Performed By: #### L 500.4100 ####[facility] [address] [place], [address] Screening total cholesterol/ high density lipoprotein (HDL) cholesterol ratioOrdered By: Walter Becker on 10-05-2024 Cholesterol.total/Cholester ol in HDL [Mass ratio] 3.37 {ratio} [facility] Serum or plasma cholesterol in HDL measurement (mass/volume)Ordered By: Walter Becker on 10-05-2024 Cholesterol in HDL [Mass/Vol] 31 mg/dL Low >40 [facility] Comment on above: National Cholesterol Education Program (NCEP) guidelines:<40 mg/dL: Low HDL-cholesterol (major risk factor for CHD)>= 60 mg/dL: High HDL-cholesterol (negative risk factor for CHD)HDL-cholesterol is affected by a number of factors, e.g. smoking, exercise, hormones, sex and age. Serum or plasma cholesterol measurement (mass/volume)Ordered By: Walter Becker on 10-05-2024 Cholesterol [Mass/Vol] 103 mg/dL <201 [facility] Comment on above: Cholesterol level, D esirable <200 mg/dLBorderline high cholesterol 200-239 mg/dLHigh cholesterol >=240 mg/dLRecommendations of the NCEP Adult Treatment Panel for the following risk-cutoff thresholds for the [place] population. Triglycerides measurementOrd ered By: Walter Becker on 10-05-2024 Triglyceride [Mass/Vol] 207 mg/dL High <199 [facility] Comment on above: The drugs N-Acetylcy steine and Metamizole may falsely depress this assay. Normal range: <150 mg/dLBorderline High: 150-199 mg/dLHigh: 200-499 mg/dLVery High: >500 mg/dL Anion gap in Serum or Plasma Ordered By: Walter Becker on 09-29-2024 Anion gap [Moles/Vol] 11 mmol/L 5-15 [facility] BUN/creatinine ratioOrdered By: Walter Becker on 09-29-2024 Urea nitrogen/Creatinine [Mass ratio] 20.5 mg/mg High 10-20 [facility] Bilirubin, totalOrdered By: Walter Becker on 09-29-2024 Bilirubin [Mass/Vol] 0.31 mg/dL 0.00-1.30 [facility] CBC-Complete Blood Cnt No Di ffon 09-29-2024 Erythrocyte distribution width (RBC) [Ratio] 13.7 % Normal 11.6-14.6 [facility] Comment on above: Order Comment: 215.2 Performed By: #### L 500.4050, L501.9985, L100.0500 ####[facility] [address] [place], [address] Hematocrit (Bld) [Volume fraction] 37.0 % Low 40-54 [facility] Comment on above: Order Comment: 215.2 Performed By: #### L 500.4050, L501.9985, L100.0500 ####[facility] [address] [place], [address] Hemoglobin (Bld) [Mass/Vol] 11.8 g/dL Low 13.0-16. 5 [facility] Comment on above: Order Comment: 215.2 Performed By: #### L 500.4050, L501.9985, L100.0500 ####[facility] [address] [place], [address] MCH (RBC) [Entitic mass] 27.9 pg Normal 27.0-32.0 [facility] Comment on above: Order Comment: 215.2 Performed By: #### L 500.4050, L501.9985, L100.0500 ####[facility] [address] [place], [address] MCHC (RBC) [Mass/Vol] 31.9 g/dL Low 32-36 [facility] Comment on above: Order Comment: 215.2 Performed By: #### L 500.4050, L501.9985, L100.0500 ####[facility] [address] [place], [address] MCV (RBC) [Entitic vol] 87.5 fL Normal 80-94 [facility] Comment on above: Order Comment: 215.2 Performed By: #### L 500.4050, L501.9985, L100.0500 ####[facility] [address] [place], [address] Platelet mean volume (Bld) [Entitic vol] 9.6 fL Normal 6.2-12.0 [facility] Comment on above: Order Comment: 215.2 Performed By: #### L 500.4050, L501.9985, L100.0500 ####[facility] [address] [place], [address] Platelets (Bld) [#/Vol] 226 10*3/uL Normal 150-450 [facility] Comment on above: Order Comment: 215.2 Performed By: #### L 500.4050, L501.9985, L100.0500 ####[facility] [address] [place], [address] RBC (Bld) [#/Vol] 4.23 10*6/uL Low 4.6-6.2 [facility] Comment on above: Order Comment: 215.2 Performed By: #### L 500.4050, L501.9985, L100.0500 ####[facility] [address] [place], [address] RDW SD 43.7 fl Normal 35.1-43.9 [facility] Comment on above: Order Comment: 215.2 Performed By: #### L 500.4050, L501.9985, L100.0500 ####[facility] [address] [place], [address] WBC (Bld) [#/Vol] 8.9 10*3/uL Normal 4.4-11.0 [place] Comment on above: Order Comment: 215.2 Performed By: #### L 500.4050, L501.9985, L100.0500 ####[facility] [address] [place], [address] Carbon dioxide, total [Moles /volume] in Central venous bloodOrdered By: Walter Becker on 09-29-2024 CO2 [Moles/Vol] 25.6 mmol/L 21.0-32.0 [facility] Chloride assayOrdered By: Horner on 09-29-2024 Chloride [Moles/Vol] 104 mmol/L 98-108 [facility] Comprehensive Metabolic Prof ilon 09-29-2024 Albumin [Mass/Vol] 3.6 g/dL Normal 3.4-4.8 [place] Comment on above: Order Comment: 215.2 Performed By: #### L 500.4050, L501.9985, L100.0500 ####[facility] [address] [place], [address] Albumin/Globulin [Mass ratio] 1.8 {ratio} Normal 0.9-2.4 [facility] Comment on above: Order Comment: 215.2 Performed By: #### L 500.4050, L501.9985, L100.0500 ####[facility] [address] [place], [address] ALK PHOS 101 U/L Normal 40-129 [facility] Comment on above: Order Comment: 215.2 Performed By: #### L 500.4050, L501.9985, L100.0500 ####[facility] [address] [place], [address] ALT [Catalytic activity/Vol] 19 U/L Normal <=46 [facility] Comment on above: Order Comment: 215.2 Performed By: #### L 500.4050, L501.9985, L100.0500 ####[facility] [address] [place], [address] AST [Catalytic activity/Vol] 15 U/L Normal <=37 [facility] Comment on above: Order Comment: 215.2 Performed By: #### L 500.4050, L501.9985, L100.0500 ####[facility] [address] [place], [address] Bilirubin [Mass/Vol] 0.31 mg/dL Normal 0.00-1.30 [facility] Comment on above: Order Comment: 215.2 Performed By: #### L 500.4050, L501.9985, L100.0500 ####[facility] [address] [place], [address] BUN/CRE 20.5 RATIO High 10-20 [facility] Comment on above: Order Comment: 215.2 Performed By: #### L 500.4050, L501.9985, L100.0500 ####[facility] [address] [place], [address] Calcium [Mass/Vol] 9.2 mg/dL Normal 7.6-11.0 [place] Comment on above: Order Comment: 215.2 Performed By: #### L 500.4050, L501.9985, L100.0500 ####[facility] [address] [place], [address] Chloride [Moles/Vol] 104 mmol/L Normal 98-108 [facility] Comment on above: Order Comment: 215.2 Performed By: #### L 500.4050, L501.9985, L100.0500 ####[facility] [address] [place], [address] CO2 [Moles/Vol] 25.6 mmol/L Normal 21.0-32.0 [facility] Comment on above: Order Comment: 215.2 Performed By: #### L 500.4050, L501.9985, L100.0500 ####[facility] [address] [place], [address] Creatinine [Mass/Vol] 1.10 mg/dL Normal 0.70-1.20 [facility] Comment on above: Order Comment: 215.2 Performed By: #### L 500.4050, L501.9985, L100.0500 ####[facility] [address] [place], [address] GAP 11 Normal 5-15 [facility] Comment on above: Order Comment: 215.2 Performed By: #### L 500.4050, L501.9985, L100.0500 ####[facility] [address] [place], [address] GFR/1.73 sq M.predicted among non-blacks MDRD (S/P/Bld) [Vol rate/Area] 70 mL/min/{1.73_m2} Normal >60 [facility] Comment on above: Order Comment: 215.2 Result Comment: mL/m in/1.73m2 CKD-EPI Creatinine Equation (2020) Performed By: #### L 500.4050, L501.9985, L100.0500 ####[facility] [address] [place], [address] Globulin (S) [Mass/Vol] 2.0 g/dL Low 2.2-4.2 [facility] Comment on above: Order Comment: 215.2 Performed By: #### L 500.4050, L501.9985, L100.0500 ####[facility] [address] [place], [address] Glucose [Mass/Vol] 155 mg/dL High 70-99 [place] Comment on above: Order Comment: 215.2 Performed By: #### L 500.4050, L501.9985, L100.0500 ####[facility] [address] [place], [address] Potassium [Moles/Vol] 4.2 mmol/L Normal 3.3-5.1 [facility] Comment on above: Order Comment: 215.2 Performed By: #### L 500.4050, L501.9985, L100.0500 ####[facility] [address] [place], [address] Sodium [Moles/Vol] 141 mmol/L Normal 133-145 [place] Comment on above: Order Comment: 215.2 Performed By: #### L 500.4050, L501.9985, L100.0500 ####[facility] [address] [place], [address] T PROT 5.6 g/dL Low 5.9-8.4 [facility] Comment on above: Order Comment: 215.2 Performed By: #### L 500.4050, L501.9985, L100.0500 ####[facility] [address] [place], [address] Urea nitrogen [Mass/Vol] 23 mg/dL High 4-19 [facility] Comment on above: Order Comment: 215.2 Performed By: #### L 500.4050, L501.9985, L100.0500 ####[facility] [address] [place], [address] Erythrocyte distribution wid th (RBC) [Ratio]Ordered By: Walter Becker on 09-29-2024 Erythrocyte distribution width (RBC) [Entitic vol] 43.7 fL 35.1-43.9 [place] Erythrocyte distribution wid th ratioOrdered By: Walter Becker on 09-29-2024 Erythrocyte distribution width (RBC) [Ratio] 13.7 % 11.6-14.6 [facility] GFR/1.73 sq M.predicted kimberly g non-blacks MDRD (S/P/Bld) [Vol rate/Area]Ordered By: Walter Becker on 09-29-2024 Estimated GFR (MDRD) Non-Af Amer 70 >60 [facility] Comment on above: mL/min/1.73m2 CKD-EP I Creatinine Equation (2020) Hematocrit Auto (Bld) [Volum e fraction]Ordered By: Walter Becker on 09-29-2024 Hematocrit (Bld) [Volume fraction] 37.0 % Low 40-54 [facility] Hemoglobin A1con 09-29-2024 HbA1c (Bld) [Mass fraction] 6.6 % Normal <=5.6 [facility] Comment on above: Order Comment: 215.2 Performed By: #### L 500.4050, L501.9985, L100.0500 ####[facility] [address] [place], [place], [address] Hemoglobin A1c percentageOrd ered By: Walter Becker on 09-29-2024 HbA1c (Bld) [Mass fraction] 6.6 % >5.7 [facility] Hemoglobin measurementOrdere d By: Walter Becker on 09-29-2024 Hemoglobin (Bld) [Mass/Vol] 11.8 g/dL Low 13.0-16. 5 [facility] Laboratory - Chemistry and C hemistry - challengeOrdered By: Walter Becker on 09-29-2024 AST [Catalytic activity/Vol] 15 U/L <38 [facility] MCV (mean corpuscular volume ) determinationOrdered By: Walter Becker on 09-29-2024 MCV (RBC) [Entitic vol] 87.5 fL 80-94 [facility] Mean corpuscular hemoglobin (MCH) determinationOrdered By: Walter Becker on 09-29-2024 MCH (RBC) [Entitic mass] 27.9 pg 27.0-32.0 [facility] Mean corpuscular hemoglobin concentration (MCHC) determinationOrdered By: Walter Becker on 09-29-2024 MCHC (RBC) [Mass/Vol] 31.9 g/dL Low 32-36 [facility] Mean platelet volume determi nationOrdered By: Walter Becker on 09-29-2024 Platelet mean volume (Bld) [Entitic vol] 9.6 fL 6.2-12.0 [facility] Platelet countOrdered By: Horner on 09-29-2024 Platelets (Bld) [#/Vol] 226 10*3/uL 150-450 [facility] Potassium (Unsp spec) [Mass/ Vol]Ordered By: Walter Becker on 09-29-2024 Potassium [Moles/Vol] 4.2 mmol/L 3.3-5.1 [facility] RBC Auto (Bld) [#/Vol]Ordere d By: Walter Becker on 09-29-2024 RBC (Bld) [#/Vol] 4.23 10*6/uL Low 4.6-6.2 [facility] Serum creatinine measurement (mass/volume)Ordered By: Walter Becker on 09-29-2024 Creatinine [Mass/Vol] 1.10 mg/dL 0.70-1.20 [facility] Serum globulin measurementOr dered By: Walter Becker on 09-29-2024 Globulin (S) [Mass/Vol] 2.0 g/dL Low 2.2-4.2 [facility] Serum glucose measurement (m ass/volume)Ordered By: Walter Becker on 09-29-2024 Glucose [Mass/Vol] 155 mg/dL High 70-99 [place] Serum or plasma alanine davis otransferase (ALT) measurementOrdered By: Walter Becker on 09-29-2024 ALT [Catalytic activity/Vol] 19 U/L <47 [facility] Serum or plasma albumin antoine urement (mass/volume)Ordered By: Walter Becker on 09-29-2024 Albumin [Mass/Vol] 3.6 g/dL 3.4-4.8 [place] Serum or plasma albumin/glob ulin mass ratioOrdered By: Walter Becker on 09-29-2024 Albumin/Globulin [Mass ratio] 1.8 {ratio} 0.9-2.4 [facility] Serum or plasma alkaline marilin sphatase measurementOrdered By: Walter Becker on 09-29-2024 ALP [Catalytic activity/Vol] 101 U/L 40-129 [facility] Serum or plasma calcium antoine urement (mass/volume)Ordered By: Walter Becker on 09-29-2024 Calcium [Mass/Vol] 9.2 mg/dL 7.6-11.0 [place] Serum or plasma urea nitroge n measurement (mass/volume)Ordered By: Walter Becker on 09-29-2024 Urea nitrogen [Mass/Vol] 23 mg/dL High 4-19 [facility] Sodium levelOrdered By: Walter Becker on 09-29-2024 Sodium [Moles/Vol] 141 mmol/L 133-145 [place] Total proteinOrdered By: Crystal Becker on 09-29-2024 Protein [Mass/Vol] 5.6 g/dL Low 5.9-8.4 [place] White blood cell (WBC) count Ordered By: Walter Becker on 09-29-2024 WBC (Bld) [#/Vol] 8.9 10*3/uL 4.4-11.0 [place] Urine Cultureon 08-05-2024 URC Culture exhibits no growth. Normal [facility] Comment on above: Performed By: #### L 400.0001, M100.2200 ####[facility] [address] [facility] [place], [address] Albumin to globulin ratioOrd ered By: Walter Becker on 08-04-2024 Albumin/Globulin [Mass ratio] 1.0 {ratio} 0.9-2.4 [facility] Bilirubin Test strip Ql (U)O rdered By: Walter Becker on 08-04-2024 Bilirubin Ql (U) Negative Negative [facility] Bilirubin, totalOrdered By: Walter Becker on 08-04-2024 Bilirubin [Mass/Vol] 0.50 mg/dL 0.20-1.00 [facility] Comment on above: For patients on eltr ombopag therapy, use of Dimension Larue TBIL is not recommended. Blood urea nitrogen (BUN)/cr eatinine ratioOrdered By: Walter Becker on 08-04-2024 Urea nitrogen/Creatinine [Mass ratio] 21.1 mg/mg High 10-20 [facility] CBC-Complete Blood Cnt No Di ffon 08-04-2024 Erythrocyte distribution width (RBC) [Ratio] 13.0 % Normal 11.6-14.6 [facility] Comment on above: Order Comment: 215.2 Performed By: #### L 500.4050, L100.0500 ####[facility] [address] [place], [address] Hematocrit (Bld) [Volume fraction] 41.3 % Normal 40-54 [facility] Comment on above: Order Comment: 215.2 Performed By: #### L 500.4050, L100.0500 ####[facility] [address] [place], [address] Hemoglobin (Bld) [Mass/Vol] 12.9 g/dL Low 13.0-16. 5 [facility] Comment on above: Order Comment: 215.2 Performed By: #### L 500.4050, L100.0500 ####[facility] [address] [place], [address] MCH (RBC) [Entitic mass] 27.3 pg Normal 27.0-32.0 [facility] Comment on above: Order Comment: 215.2 Performed By: #### L 500.4050, L100.0500 ####[facility] [address] [place], [address] MCHC (RBC) [Mass/Vol] 31.2 g/dL Low 32-36 [facility] Comment on above: Order Comment: 215.2 Performed By: #### L 500.4050, L100.0500 ####[facility] [address] [place], [address] MCV (RBC) [Entitic vol] 87.3 fL Normal 80-94 [facility] Comment on above: Order Comment: 215.2 Performed By: #### L 500.4050, L100.0500 ####[facility] [address] [place], [address] Platelet mean volume (Bld) [Entitic vol] 9.3 fL Normal 6.2-12.0 [facility] Comment on above: Order Comment: 215.2 Performed By: #### L 500.4050, L100.0500 ####[facility] [address] [place], [address] Platelets (Bld) [#/Vol] 295 10*3/uL Normal 150-450 [facility] Comment on above: Order Comment: 215.2 Performed By: #### L 500.4050, L100.0500 ####[facility] [address] [place], [address] RBC (Bld) [#/Vol] 4.73 10*6/uL Normal 4.6-6.2 [facility] Comment on above: Order Comment: 215.2 Performed By: #### L 500.4050, L100.0500 ####[facility] [address] [place], [address] RDW SD 41.8 fl Normal 35.1-43.9 [facility] Comment on above: Order Comment: 215.2 Performed By: #### L 500.4050, L100.0500 ####[facility] [address] [place], [address] WBC (Bld) [#/Vol] 9.3 10*3/uL Normal 4.4-11.0 [place] Comment on above: Order Comment: 215.2 Performed By: #### L 500.4050, L100.0500 ####[facility] [address] [place], [address] Carbon dioxide measurementOr dered By: Walter Becker on 08-04-2024 CO2 [Moles/Vol] 29.0 mmol/L 21.0-32.0 [facility] Chloride measurementOrdered By: Walter Becker on 08-04-2024 Chloride [Moles/Vol] 104 mmol/L 98-107 [facility] Comprehensive Metabolic Prof ilon 08-04-2024 Albumin [Mass/Vol] 3.5 g/dL Normal 3.2-5.0 [place] Comment on above: Order Comment: 215.2 Performed By: #### L 500.4050, L100.0500 ####[facility] [address] [place], [address] Albumin/Globulin [Mass ratio] 1.0 {ratio} Normal 0.9-2.4 [facility] Comment on above: Order Comment: 215.2 Performed By: #### L 500.4050, L100.0500 ####[facility] [address] [place], [address] ALK P 125 U/L High 45-117 [facility] Comment on above: Order Comment: 215.2 Performed By: #### L 500.4050, L100.0500 ####[facility] [address] [place], [address] ALT [Catalytic activity/Vol] 19 U/L Normal 16-61 [facility] Comment on above: Order Comment: 215.2 Performed By: #### L 500.4050, L100.0500 ####[facility] [address] [place], [address] AST [Catalytic activity/Vol] 12 U/L Low 15-37 [facility] Comment on above: Order Comment: 215.2 Performed By: #### L 500.4050, L100.0500 ####[facility] [address] [place], [address] Bilirubin [Mass/Vol] 0.50 mg/dL Normal 0.20-1.00 [facility] Comment on above: Order Comment: 215.2 Result Comment: For patients on eltrombopag therapy, use of Dimension Larue TBIL is not recommended. Performed By: #### L 500.4050, L100.0500 ####[facility] [address] [place], [address] BUN/CRE 21.1 RATIO High 10-20 [facility] Comment on above: Order Comment: 215.2 Performed By: #### L 500.4050, L100.0500 ####[facility] [address] [place], [address] CA,Total 9.7 mg/dL Normal 8.5-10.1 [facility] Comment on above: Order Comment: 215.2 Performed By: #### L 500.4050, L100.0500 ####[facility] [address] [place], [address] Chloride [Moles/Vol] 104 mmol/L Normal 98-107 [facility] Comment on above: Order Comment: 215.2 Performed By: #### L 500.4050, L100.0500 ####[facility] [address] [place], [address] CO2 [Moles/Vol] 29.0 mmol/L Normal 21.0-32.0 [facility] Comment on above: Order Comment: 215.2 Performed By: #### L 500.4050, L100.0500 ####[facility] [address] [place], [address] Creatinine [Mass/Vol] 1.28 mg/dL Normal 0.70-1.30 [facility] Comment on above: Order Comment: 215.2 Result Comment: The validity of the calculated GFR GFRAA in patients over70 years has not been determined. Clinical correlation isessential. Performed By: #### L 500.4050, L100.0500 ####[facility] [address] [place], [address] EST GFR - AA 70 mL/min Normal >60 [facility] Comment on above: Order Comment: 215.2 Result Comment: Afri can [place] GFR Calc Performed By: #### L 500.4050, L100.0500 ####[facility] [address] [place], [address] GAP 7 Normal 5-15 [facility] Comment on above: Order Comment: 215.2 Performed By: #### L 500.4050, L100.0500 ####[facility] [address] [place], [address] GFR/1.73 sq M.predicted among non-blacks MDRD (S/P/Bld) [Vol rate/Area] 58 mL/min/{1.73_m2} Low >60 [facility] Comment on above: Order Comment: 215.2 Result Comment: Non- GFR Calc Performed By: #### L 500.4050, L100.0500 ####[facility] [address] [place], [address] Globulin (S) [Mass/Vol] 3.5 g/dL Normal 2.2-4.2 [facility] Comment on above: Order Comment: 215.2 Performed By: #### L 500.4050, L100.0500 ####[facility] [address] [place], [address] Glucose [Mass/Vol] 128 mg/dL High 74-106 [place] Comment on above: Order Comment: 215.2 Result Comment: Fast ing Glucose result greater than or equal to 126 mg/dLsuggests DIABETES MELLITUS per A.D.A. criteria. Performed By: #### L 500.4050, L100.0500 ####[facility] [address] [place], [address] Potassium [Moles/Vol] 3.9 mmol/L Normal 3.5-5.1 [facility] Comment on above: Order Comment: 215.2 Performed By: #### L 500.4050, L100.0500 ####[facility] [address] [place], [address] Sodium [Moles/Vol] 140 mmol/L Normal 136-145 [place] Comment on above: Order Comment: 215.2 Performed By: #### L 500.4050, L100.0500 ####[facility] [address] [place], [address] T PROT 7.0 g/dL Normal 6.4-8.2 [facility] Comment on above: Order Comment: 215.2 Performed By: #### L 500.4050, L100.0500 ####[facility] [address] [place], [address] Urea nitrogen [Mass/Vol] 27 mg/dL High 7-18 [facility] Comment on above: Order Comment: 215.2 Performed By: #### L 500.4050, L100.0500 ####[facility] [address] [place], [address] Epithelial cells.squamous LM Ql (Urine sed)Ordered By: Walter Becker on 08-04-2024 Epithelial cells.squamous LM.HPF (Urine sed) [#/Area] 0 /[HPF] 0-5 [facility] Erythrocyte distribution wid th (RBC) [Ratio]Ordered By: Walter Becker on 08-04-2024 Erythrocyte distribution width (RBC) [Entitic vol] 41.8 fL 35.1-43.9 [place] Erythrocyte distribution wid th ratioOrdered By: Walter Becker on 08-04-2024 Erythrocyte distribution width (RBC) [Ratio] 13.0 % 11.6-14.6 [facility] Estimated glomerular filtrat ion rate (GFR) AmericanOrdered By: Walter Becker on 08-04-2024 Estimated GFR (MDRD) Amer 70 mL/min >60 [facility] Comment on above: GFR Calc Glomerular filtration rate ( GFR) estimationOrdered By: Walter Becker on 08-04-2024 Estimated GFR (MDRD) Non-Af Amer 58 mL/min Low >60 [facility] Comment on above: Non- GFR Calc Glucose Ql (U)Ordered By: Horner on 08-04-2024 Urine Glucose (UA) Normal mg/dl Normal [facility] Glucose measurementOrdered B y: Walter Becker on 08-04-2024 Glucose [Mass/Vol] 128 mg/dL High 74-106 [place] Comment on above: Fasting Glucose resu lt greater than or equal to 126 mg/dL suggests DIABETES MELLITUS per A.D.A. criteria. Hematocrit Auto (Bld) [Volum e fraction]Ordered By: Walter Becker on 08-04-2024 Hematocrit (Bld) [Volume fraction] 41.3 % 40-54 [facility] Hemoglobin measurementOrdere d By: Walter Becker on 08-04-2024 Hemoglobin (Bld) [Mass/Vol] 12.9 g/dL Low 13.0-16. 5 [facility] Ketones Test strip Ql (U)Ord ered By: Walter Becker on 08-04-2024 Ketones Ql (U) Negative Negative [facility] Laboratory - Chemistry and C hemistry - challengeOrdered By: Walter Becker on 08-04-2024 AST [Catalytic activity/Vol] 12 U/L Low 15-37 [facility] MCV (mean corpuscular volume ) determinationOrdered By: Walter Becker on 08-04-2024 MCV (RBC) [Entitic vol] 87.3 fL 80-94 [facility] Mean corpuscular hemoglobin (MCH) determinationOrdered By: Walter Becker on 08-04-2024 MCH (RBC) [Entitic mass] 27.3 pg 27.0-32.0 [facility] Mean corpuscular hemoglobin concentration (MCHC) determinationOrdered By: Walter Becker on 08-04-2024 MCHC (RBC) [Mass/Vol] 31.2 g/dL Low 32-36 [facility] Mean platelet volume determi nationOrdered By: Walter Becker on 08-04-2024 Platelet mean volume (Bld) [Entitic vol] 9.3 fL 6.2-12.0 [facility] Microscopic analysis of urin e for red blood cells (RBC)Ordered By: Walter Becker on 08-04-2024 Urine RBC 0 SEEN /hpf 0-5 [facility] Mucus LM Ql (Urine sed)Order ed By: Walter Becker on 08-04-2024 Mucus Ql (Urine sed) 0 SEEN /hpf [facility] Nitrite Test strip Ql (U)Ord ered By: Walter Becker on 08-04-2024 Nitrite Ql (U) Negative Negative [facility] Platelet countOrdered By: Horner on 08-04-2024 Platelets (Bld) [#/Vol] 295 10*3/uL 150-450 [facility] Potassium measurementOrdered By: Walter Becker on 08-04-2024 Potassium [Moles/Vol] 3.9 mmol/L 3.5-5.1 [facility] Protein Test strip Ql (U)Ord ered By: Walter Becker on 08-04-2024 Protein Ql (U) Negative Negative [facility] RBC Auto (Bld) [#/Vol]Ordere d By: Walter Becker on 08-04-2024 RBC (Bld) [#/Vol] 4.73 10*6/uL 4.6-6.2 [facility] Serum anion gap measurementO rdered By: Walter Becker on 08-04-2024 Anion gap [Moles/Vol] 7 mmol/L 5-15 [facility] Serum globulin measurementOr dered By: Walter Becker on 08-04-2024 Globulin (S) [Mass/Vol] 3.5 g/dL 2.2-4.2 [facility] Serum or plasma alanine davis otransferase (ALT) measurementOrdered By: Walter Becker on 08-04-2024 ALT [Catalytic activity/Vol] 19 U/L 16-61 [facility] Serum or plasma albumin antoine urement (mass/volume)Ordered By: Walter Becker on 08-04-2024 Albumin [Mass/Vol] 3.5 g/dL 3.2-5.0 [place] Serum or plasma alkaline marilin sphatase measurementOrdered By: Walter Becker on 08-04-2024 ALP [Catalytic activity/Vol] 125 U/L High 45-117 [facility] Serum or plasma calcium antoine urement (mass/volume)Ordered By: Walter Becker on 08-04-2024 Calcium [Mass/Vol] 9.7 mg/dL 8.5-10.1 [place] Serum or plasma creatinine m easurement (mass/volume)Ordered By: Walter Becker on 08-04-2024 Creatinine [Mass/Vol] 1.28 mg/dL 0.70-1.30 [facility] Comment on above: The validity of the calculated GFR & GFRAA in patients over 70 years has not been determined. Clinical correlation is essential. Serum or plasma urea nitroge n measurement (mass/volume)Ordered By: Walter Becker on 08-04-2024 Urea nitrogen [Mass/Vol] 27 mg/dL High 7-18 [facility] Sodium levelOrdered By: Walter Becker on 08-04-2024 Sodium [Moles/Vol] 140 mmol/L 136-145 [place] Total proteinOrdered By: Crystal Becker on 08-04-2024 Protein [Mass/Vol] 7.0 g/dL 6.4-8.2 [place] Urinalysis, Completeon 08-04 WBC 0-5 SEEN Normal 0-5 [facility] Comment on above: Order Comment: SCCAT HETER SPECIMEN Performed By: #### L 400.0001, ####[facility] [address] [place], [address] BACTERIA 0 SEEN Normal None Seen [facility] Comment on above: Order Comment: SCCAT HETER SPECIMEN Performed By: #### L 400.0001, ####[facility] [address] [place], [address] EPI,SQUAMOUS 0 SEEN Normal 0-5 [facility] Comment on above: Order Comment: SCCAT HETER SPECIMEN Performed By: #### L 400.0001, M100.0 ####[facility] [address] [place], [address] Mucus Ql (Urine sed) 0 SEEN Normal [facility] Comment on above: Order Comment: SCCAT HETER SPECIMEN Performed By: #### L 400.0001, M100.2200 ####[facility] [address] [place], [address] RBC 0 SEEN Normal 0-5 [facility] Comment on above: Order Comment: SCCAT HETER SPECIMEN Performed By: #### L 400.0001, M100.2200 ####[facility] [address] [place], [address] Urine blood detectionOrdered By: Walter Becker on 08-04-2024 Urine Occult Blood Negative Negative [place] Urine clarityOrdered By: Crystal Becker on 08-04-2024 Clarity (U) Clear Clear [facility] Urine color determinationOrd ered By: Walter Becker on 08-04-2024 Color (U) Yellow Yellow [facility] Urine cultureOrdered By: Crystal Becker on 08-04-2024 Bacteria identified Cx Nom (U) Culture exhibits no growth. [facility] Urine leukocyte esterase det ection by dipstickOrdered By: Walter Becker on 08-04-2024 Leukocyte esterase Test strip Ql (U) Negative Negative [facility] Urine pHOrdered By: Walter floyd on 08-04-2024 pH (U) 6.0 [pH] 5.0 - 8.0 [facility] Urine sediment bacteria coun t by microscopy (number/high power field)Ordered By: Walter Becker on 08-04-2024 Bacteria LM.HPF (Urine sed) [#/Area] 0 /[HPF] None Seen [facility] Urine specific gravity measu rementOrdered By: Walter Becker on 08-04-2024 Specific gravity (U) [Rel density] 1.010 1.002-1.03 0 [facility] Urobilinogen Ql (U)Ordered B y: Walter Becker on 08-04-2024 Urine Urobilinogen Normal mg/dl Normal [facility] White blood cell (WBC) count Ordered By: Walter Becker on 08-04-2024 WBC (Bld) [#/Vol] 9.3 10*3/uL 4.4-11.0 [place] White blood cell countOrdere d By: Walter Becker on 08-04-2024 Urine WBC 0-5 SEEN /hpf 0-5 [facility] Albumin to globulin ratioOrd ered By: Walter Becker on 07-27-2024 Albumin/Globulin [Mass ratio] 1.1 {ratio} 0.9-2.4 [facility] Bilirubin, totalOrdered By: Walter Becker on 07-27-2024 Bilirubin [Mass/Vol] 0.60 mg/dL 0.20-1.00 [facility] Comment on above: For patients on eltr ombopag therapy, use of Dimension Larue TBIL is not recommended. Blood urea nitrogen (BUN)/cr eatinine ratioOrdered By: Walter Becker on 07-27-2024 Urea nitrogen/Creatinine [Mass ratio] 20.0 mg/mg 10-20 [facility] CBC-Complete Blood Cnt No Di ffon 07-27-2024 Erythrocyte distribution width (RBC) [Ratio] 13.5 % Normal 11.6-14.6 [facility] Comment on above: Order Comment: 215-2 Performed By: #### L 500.4050, L100.0500 ####[facility] [address] [place], [address] Hematocrit (Bld) [Volume fraction] 35.7 % Low 40-54 [facility] Comment on above: Order Comment: 215-2 Performed By: #### L 500.4050, L100.0500 ####[facility] [address] [place], [address] Hemoglobin (Bld) [Mass/Vol] 11.5 g/dL Low 13.0-16. 5 [facility] Comment on above: Order Comment: 215-2 Performed By: #### L 500.4050, L100.0500 ####[facility] [address] [place], [address] MCH (RBC) [Entitic mass] 28.2 pg Normal 27.0-32.0 [facility] Comment on above: Order Comment: 215-2 Performed By: #### L 500.4050, L100.0500 ####[facility] [address] [place], [address] MCHC (RBC) [Mass/Vol] 32.2 g/dL Normal 32-36 [facility] Comment on above: Order Comment: 215-2 Performed By: #### L 500.4050, L100.0500 ####[facility] [address] [place], [address] MCV (RBC) [Entitic vol] 87.5 fL Normal 80-94 [facility] Comment on above: Order Comment: 215-2 Performed By: #### L 500.4050, L100.0500 ####[facility] [address] [place], [address] Platelet mean volume (Bld) [Entitic vol] 9.6 fL Normal 6.2-12.0 [facility] Comment on above: Order Comment: 215-2 Performed By: #### L 500.4050, L100.0500 ####[facility] [address] [place], [address] Platelets (Bld) [#/Vol] 192 10*3/uL Normal 150-450 [facility] Comment on above: Order Comment: 215-2 Performed By: #### L 500.4050, L100.0500 ####[facility] [address] [place], [address] RBC (Bld) [#/Vol] 4.08 10*6/uL Low 4.6-6.2 [facility] Comment on above: Order Comment: 215-2 Performed By: #### L 500.4050, L100.0500 ####[facility] [address] [place], [address] RDW SD 43.1 fl Normal 35.1-43.9 [facility] Comment on above: Order Comment: 215-2 Performed By: #### L 500.4050, L100.0500 ####[facility] [address] [place], [address] WBC (Bld) [#/Vol] 7.2 10*3/uL Normal 4.4-11.0 [place] Comment on above: Order Comment: 215-2 Performed By: #### L 500.4050, L100.0500 ####[facility] [address] [place], [address] Carbon dioxide measurementOr dered By: Walter Becker on 07-27-2024 CO2 [Moles/Vol] 29.0 mmol/L 21.0-32.0 [facility] Chloride measurementOrdered By: Walter Becker on 07-27-2024 Chloride [Moles/Vol] 105 mmol/L 98-107 [facility] Comprehensive Metabolic Prof ilon 07-27-2024 Albumin [Mass/Vol] 3.1 g/dL Low 3.2-5.0 [place] Comment on above: Order Comment: 215-2 Performed By: #### L 500.4050, L100.0500 ####[facility] [address] [place], [address] Albumin/Globulin [Mass ratio] 1.1 {ratio} Normal 0.9-2.4 [facility] Comment on above: Order Comment: 215-2 Performed By: #### L 500.4050, L100.0500 ####[facility] [address] [place], [address] ALK P 124 U/L High 45-117 [facility] Comment on above: Order Comment: 215-2 Performed By: #### L 500.4050, L100.0500 ####[facility] [address] [place], [address] ALT [Catalytic activity/Vol] 20 U/L Normal 16-61 [facility] Comment on above: Order Comment: 215-2 Performed By: #### L 500.4050, L100.0500 ####[facility] [address] [place], [address] AST [Catalytic activity/Vol] 10 U/L Low 15-37 [facility] Comment on above: Order Comment: 215-2 Performed By: #### L 500.4050, L100.0500 ####[facility] [address] [place], [address] Bilirubin [Mass/Vol] 0.60 mg/dL Normal 0.20-1.00 [facility] Comment on above: Order Comment: 215-2 Result Comment: For patients on eltrombopag therapy, use of Dimension Larue TBIL is not recommended. Performed By: #### L 500.4050, L100.0500 ####[facility] [address] [place], [address] BUN/CRE 20.0 RATIO Normal 10-20 [facility] Comment on above: Order Comment: 215-2 Performed By: #### L 500.4050, L100.0500 ####[facility] [address] [place], [address] CA,Total 8.9 mg/dL Normal 8.5-10.1 [facility] Comment on above: Order Comment: 215-2 Performed By: #### L 500.4050, L100.0500 ####[facility] [address] [place], [address] Chloride [Moles/Vol] 105 mmol/L Normal 98-107 [facility] Comment on above: Order Comment: 215-2 Performed By: #### L 500.4050, L100.0500 ####[facility] [address] [place], [address] CO2 [Moles/Vol] 29.0 mmol/L Normal 21.0-32.0 [facility] Comment on above: Order Comment: 215-2 Performed By: #### L 500.4050, L100.0500 ####[facility] [address] [place], [address] Creatinine [Mass/Vol] 1.10 mg/dL Normal 0.70-1.30 [facility] Comment on above: Order Comment: -2 Result Comment: The validity of the calculated GFR GFRAA in patients over70 years has not been determined. Clinical correlation isessential. Performed By: #### L 500.4050, L100.0500 ####[facility] [address] [place], [address] EST GFR - AA 84 mL/min Normal >60 [facility] Comment on above: Order Comment: -2 Result Comment: Afri can [place] GFR Calc Performed By: #### L 500.4050, L100.0500 ####[facility] [address] [place], [address] GAP 4 Low 5-15 [facility] Comment on above: Order Comment: -2 Performed By: #### L 500.4050, L100.0500 ####[facility] [address] [place], [address] GFR/1.73 sq M.predicted among non-blacks MDRD (S/P/Bld) [Vol rate/Area] 69 mL/min/{1.73_m2} Normal >60 [facility] Comment on above: Order Comment: 215-2 Result Comment: Non- GFR Calc Performed By: #### L 500.4050, L100.0500 ####[facility] [address] [place], [address] Globulin (S) [Mass/Vol] 2.9 g/dL Normal 2.2-4.2 [facility] Comment on above: Order Comment: 215-2 Performed By: #### L 500.4050, L100.0500 ####[facility] [address] [place], [address] Glucose [Mass/Vol] 127 mg/dL High 74-106 [place] Comment on above: Order Comment: 215-2 Result Comment: Fast ing Glucose result greater than or equal to 126 mg/dLsuggests DIABETES MELLITUS per A.D.A. criteria. Performed By: #### L 500.4050, L100.0500 ####[facility] [address] [place], [address] Potassium [Moles/Vol] 4.1 mmol/L Normal 3.5-5.1 [facility] Comment on above: Order Comment: 215-2 Performed By: #### L 500.4050, L100.0500 ####[facility] [address] [place], [address] Sodium [Moles/Vol] 137 mmol/L Normal 136-145 [place] Comment on above: Order Comment: 215-2 Performed By: #### L 500.4050, L100.0500 ####[facility] [address] [place], [address] T PROT 6.0 g/dL Low 6.4-8.2 [facility] Comment on above: Order Comment: 215-2 Performed By: #### L 500.4050, L100.0500 ####[facility] [address] [place], [address] Urea nitrogen [Mass/Vol] 22 mg/dL High 7-18 [facility] Comment on above: Order Comment: 215-2 Performed By: #### L 500.4050, L100.0500 ####[facility] [address] [place], [address] Erythrocyte distribution wid th (RBC) [Ratio]Ordered By: Walter Becker on 07-27-2024 Erythrocyte distribution width (RBC) [Entitic vol] 43.1 fL 35.1-43.9 [place] Erythrocyte distribution wid th ratioOrdered By: Walter Becker on 07-27-2024 Erythrocyte distribution width (RBC) [Ratio] 13.5 % 11.6-14.6 [facility] Estimated glomerular filtrat ion rate (GFR) AmericanOrdered By: Walter Becker on 07-27-2024 Estimated GFR (MDRD) Amer 84 mL/min >60 [facility] Comment on above: GFR Calc Glomerular filtration rate ( GFR) estimationOrdered By: Walter Becker on 07-27-2024 Estimated GFR (MDRD) Non-Af Amer 69 mL/min >60 [facility] Comment on above: Non- GFR Calc Glucose measurementOrdered B y: Walter Becker on 07-27-2024 Glucose [Mass/Vol] 127 mg/dL High 74-106 [place] Comment on above: Fasting Glucose resu lt greater than or equal to 126 mg/dL suggests DIABETES MELLITUS per A.D.A. criteria. Hematocrit Auto (Bld) [Volum e fraction]Ordered By: Walter Becker on 07-27-2024 Hematocrit (Bld) [Volume fraction] 35.7 % Low 40-54 [facility] Hemoglobin measurementOrdere d By: Walter Becker on 07-27-2024 Hemoglobin (Bld) [Mass/Vol] 11.5 g/dL Low 13.0-16. 5 [facility] Laboratory - Chemistry and C hemistry - challengeOrdered By: Walter Becker on 07-27-2024 AST [Catalytic activity/Vol] 10 U/L Low 15-37 [facility] MCV (mean corpuscular volume ) determinationOrdered By: Walter Becker on 07-27-2024 MCV (RBC) [Entitic vol] 87.5 fL 80-94 [facility] Mean corpuscular hemoglobin (MCH) determinationOrdered By: Walter Becker on 07-27-2024 MCH (RBC) [Entitic mass] 28.2 pg 27.0-32.0 [facility] Mean corpuscular hemoglobin concentration (MCHC) determinationOrdered By: Walter Becker on 07-27-2024 MCHC (RBC) [Mass/Vol] 32.2 g/dL 32-36 [facility] Mean platelet volume determi nationOrdered By: Walter Becker on 07-27-2024 Platelet mean volume (Bld) [Entitic vol] 9.6 fL 6.2-12.0 [facility] Platelet countOrdered By: Horner on 07-27-2024 Platelets (Bld) [#/Vol] 192 10*3/uL 150-450 [facility] Potassium measurementOrdered By: Walter Becker on 07-27-2024 Potassium [Moles/Vol] 4.1 mmol/L 3.5-5.1 [facility] RBC Auto (Bld) [#/Vol]Ordere d By: Walter Becker on 07-27-2024 RBC (Bld) [#/Vol] 4.08 10*6/uL Low 4.6-6.2 [facility] Serum anion gap measurementO rdered By: Walter Becker on 07-27-2024 Anion gap [Moles/Vol] 4 mmol/L Low 5-15 [facility] Serum globulin measurementOr dered By: Walter Becker on 07-27-2024 Globulin (S) [Mass/Vol] 2.9 g/dL 2.2-4.2 [facility] Serum or plasma alanine davis otransferase (ALT) measurementOrdered By: Walter Becker on 07-27-2024 ALT [Catalytic activity/Vol] 20 U/L 16-61 [facility] Serum or plasma albumin antoine urement (mass/volume)Ordered By: Walter Becker on 07-27-2024 Albumin [Mass/Vol] 3.1 g/dL Low 3.2-5.0 [place] Serum or plasma alkaline marilin sphatase measurementOrdered By: Walter Becker on 01-13-2025 ALP [Catalytic activity/Vol] 124 U/L High 45-117 [facility] Serum or plasma calcium antoine urement (mass/volume)Ordered By: Walter Becker on 07-27-2024 Calcium [Mass/Vol] 8.9 mg/dL 8.5-10.1 [place] Serum or plasma creatinine m easurement (mass/volume)Ordered By: Walter Becker on 07-27-2024 Creatinine [Mass/Vol] 1.10 mg/dL 0.70-1.30 [facility] Comment on above: The validity of the calculated GFR & GFRAA in patients over 70 years has not been determined. Clinical correlation is essential. Serum or plasma urea nitroge n measurement (mass/volume)Ordered By: Walter Becker on 07-27-2024 Urea nitrogen [Mass/Vol] 22 mg/dL High 7-18 [facility] Sodium levelOrdered By: Walter Becker on 07-27-2024 Sodium [Moles/Vol] 137 mmol/L 136-145 [place] Total proteinOrdered By: Crystal Becker on 07-27-2024 Protein [Mass/Vol] 6.0 g/dL Low 6.4-8.2 [place] White blood cell (WBC) count Ordered By: Walter Becker on 07-27-2024 WBC (Bld) [#/Vol] 7.2 10*3/uL 4.4-11.0 [place] Albumin to globulin ratioOrd ered By: Walter Becker on 07-07-2024 Albumin/Globulin [Mass ratio] 1.0 {ratio} 0.9-2.4 [facility] Bilirubin, totalOrdered By: Walter Becker on 07-07-2024 Bilirubin [Mass/Vol] 0.40 mg/dL 0.20-1.00 [facility] Comment on above: For patients on eltr ombopag therapy, use of Dimension Larue TBIL is not recommended. Blood urea nitrogen (BUN)/cr eatinine ratioOrdered By: Walter Becker on 07-07-2024 Urea nitrogen/Creatinine [Mass ratio] 23.6 mg/mg High 10-20 [facility] CBC-Complete Blood Cnt No Di ffon 07-07-2024 Erythrocyte distribution width (RBC) [Ratio] 13.3 % Normal 11.6-14.6 [facility] Comment on above: Order Comment: 215.2 Performed By: #### L 100.0500, L500.4050, L501.9985 ####[facility] [address] [place], [address] Hematocrit (Bld) [Volume fraction] 38.1 % Low 40-54 [facility] Comment on above: Order Comment: 215.2 Performed By: #### L 100.0500, L500.4050, L501.9985 ####[facility] [address] [place], [address] Hemoglobin (Bld) [Mass/Vol] 12.3 g/dL Low 13.0-16. 5 [facility] Comment on above: Order Comment: 215.2 Performed By: #### L 100.0500, L500.4050, [id number] ####[facility] [address] [place], [address] MCH (RBC) [Entitic mass] 28.3 pg Normal 27.0-32.0 [facility] Comment on above: Order Comment: 215.2 Performed By: #### L 100.0500, L500.4050, [id number] ####[facility] [address] [place], [address] MCHC (RBC) [Mass/Vol] 32.3 g/dL Normal 32-36 [facility] Comment on above: Order Comment: 215.2 Performed By: #### L 100.0500, L500.4050, [id number] ####[facility] [address] [place], [address] MCV (RBC) [Entitic vol] 87.6 fL Normal 80-94 [facility] Comment on above: Order Comment: 215.2 Performed By: #### L 100.0500, L500.4050, [id number] ####[facility] [address] [place], [address] Platelet mean volume (Bld) [Entitic vol] 9.1 fL Normal 6.2-12.0 [facility] Comment on above: Order Comment: 215.2 Performed By: #### L 100.0500, L500.4050, [id number] ####[facility] [address] [place], [address] Platelets (Bld) [#/Vol] 211 10*3/uL Normal 150-450 [facility] Comment on above: Order Comment: 215.2 Performed By: #### L 100.0500, L500.4050, [id number] ####[facility] [address] [place], [address] RBC (Bld) [#/Vol] 4.35 10*6/uL Low 4.6-6.2 [facility] Comment on above: Order Comment: 215.2 Performed By: #### L 100.0500, L500.4050, [id number] ####[facility] [address] [place], [address] RDW SD 42.5 fl Normal 35.1-43.9 [facility] Comment on above: Order Comment: 215.2 Performed By: #### L 100.0500, L500.4050, [id number] ####[facility] [address] [place], [address] WBC (Bld) [#/Vol] 7.6 10*3/uL Normal 4.4-11.0 [place] Comment on above: Order Comment: 215.2 Performed By: #### L 100.0500, L500.4050, [id number] ####[facility] [address] [place], [address] Carbon dioxide measurementOr dered By: Walter Becker on 07-07-2024 CO2 [Moles/Vol] 32.0 mmol/L 21.0-32.0 [facility] Chloride measurementOrdered By: Walter Becker on 07-07-2024 Chloride [Moles/Vol] 107 mmol/L 98-107 [facility] Comprehensive Metabolic Prof ilon 07-07-2024 Albumin [Mass/Vol] 2.9 g/dL Low 3.2-5.0 [place] Comment on above: Order Comment: 215.2 Performed By: #### L 100.0500, L500.4050, [id number] ####[facility] [address] [place], [address] Albumin/Globulin [Mass ratio] 1.0 {ratio} Normal 0.9-2.4 [facility] Comment on above: Order Comment: 215.2 Performed By: #### L 100.0500, L500.4050, [id number] ####[facility] [address] [place], [address] ALK P 121 U/L High 45-117 [facility] Comment on above: Order Comment: 215.2 Performed By: #### L 100.0500, L500.4050, [id number] ####[facility] [address] [place], [address] ALT [Catalytic activity/Vol] 20 U/L Normal 16-61 [facility] Comment on above: Order Comment: 215.2 Performed By: #### L 100.0500, L500.4050, [id number] ####[facility] [address] [place], [address] AST [Catalytic activity/Vol] 10 U/L Low 15-37 [facility] Comment on above: Order Comment: 215.2 Performed By: #### L 100.0500, L500.4050, [id number] ####[facility] [address] [place], [address] Bilirubin [Mass/Vol] 0.40 mg/dL Normal 0.20-1.00 [facility] Comment on above: Order Comment: 215.2 Result Comment: For patients on eltrombopag therapy, use of Dimension Larue TBIL is not recommended. Performed By: #### L 100.0500, L500.4050, [id number] ####[facility] [address] [place], [address] BUN/CRE 23.6 RATIO High 10-20 [facility] Comment on above: Order Comment: 215.2 Performed By: #### L 100.0500, L500.4050, [id number] ####[facility] [address] [place], [address] CA,Total 9.1 mg/dL Normal 8.5-10.1 [facility] Comment on above: Order Comment: 215.2 Performed By: #### L 100.0500, L500.4050, [id number] ####[facility] [address] [place], [address] Chloride [Moles/Vol] 107 mmol/L Normal 98-107 [facility] Comment on above: Order Comment: 215.2 Performed By: #### L 100.0500, L500.4050, [id number] ####[facility] [address] [place], [address] CO2 [Moles/Vol] 32.0 mmol/L Normal 21.0-32.0 [facility] Comment on above: Order Comment: 215.2 Performed By: #### L 100.0500, L500.4050, [id number] ####[facility] [address] [place], [address] Creatinine [Mass/Vol] 1.06 mg/dL Normal 0.70-1.30 [facility] Comment on above: Order Comment: 215.2 Result Comment: The validity of the calculated GFR GFRAA in patients over70 years has not been determined. Clinical correlation isessential. Performed By: #### L 100.0500, L500.4050, [id number] ####[facility] [address] [place], [address] EST GFR - AA 87 mL/min Normal >60 [facility] Comment on above: Order Comment: 215.2 Result Comment: Afri can [place] GFR Calc Performed By: #### L 100.0500, L500.4050, [id number] ####[facility] [address] [place], [address] GAP 3 Low 5-15 [facility] Comment on above: Order Comment: 215.2 Performed By: #### L 100.0500, L500.4050, [id number] ####[facility] [address] [place], [address] GFR/1.73 sq M.predicted among non-blacks MDRD (S/P/Bld) [Vol rate/Area] 72 mL/min/{1.73_m2} Normal >60 [facility] Comment on above: Order Comment: 215.2 Result Comment: Non- GFR Calc Performed By: #### L 100.0500, L500.4050, [id number] ####[facility] [address] [place], [address] Globulin (S) [Mass/Vol] 3.0 g/dL Normal 2.2-4.2 [facility] Comment on above: Order Comment: 215.2 Performed By: #### L 100.0500, L500.4050, [id number] ####[facility] [address] [place], [address] Glucose [Mass/Vol] 130 mg/dL High 74-106 [place] Comment on above: Order Comment: 215.2 Result Comment: Fast ing Glucose result greater than or equal to 126 mg/dLsuggests DIABETES MELLITUS per A.D.A. criteria. Performed By: #### L 100.0500, L500.4050, [id number] ####[facility] [address] [place], [address] Potassium [Moles/Vol] 3.9 mmol/L Normal 3.5-5.1 [facility] Comment on above: Order Comment: 215.2 Performed By: #### L 100.0500, L500.4050, [id number] ####[facility] [address] [place], [address] Sodium [Moles/Vol] 141 mmol/L Normal 136-145 [place] Comment on above: Order Comment: 215.2 Performed By: #### L 100.0500, L500.4050, [id number] ####[facility] [address] [place], [address] T PROT 5.9 g/dL Low 6.4-8.2 [facility] Comment on above: Order Comment: 215.2 Performed By: #### L 100.0500, L500.4050, [id number] ####[facility] [address] [place], [address] Urea nitrogen [Mass/Vol] 25 mg/dL High 7-18 [facility] Comment on above: Order Comment: 215.2 Performed By: #### L 100.0500, L500.4050, [id number] ####[facility] [address] [place], [address] Erythrocyte distribution wid th (RBC) [Ratio]Ordered By: Walter Becker on 07-07-2024 Erythrocyte distribution width (RBC) [Entitic vol] 42.5 fL 35.1-43.9 [place] Erythrocyte distribution wid th ratioOrdered By: Walter Becker on 07-07-2024 Erythrocyte distribution width (RBC) [Ratio] 13.3 % 11.6-14.6 [facility] Estimated glomerular filtrat ion rate (GFR) AmericanOrdered By: Walter Becker on 07-07-2024 Estimated GFR (MDRD) Amer 87 mL/min >60 [facility] Comment on above: GFR Calc Glomerular filtration rate ( GFR) estimationOrdered By: Walter Becker on 07-07-2024 Estimated GFR (MDRD) Non-Af Amer 72 mL/min >60 [facility] Comment on above: Non- GFR Calc Glucose measurementOrdered B y: Walter Becker on 07-07-2024 Glucose [Mass/Vol] 130 mg/dL High 74-106 [place] Comment on above: Fasting Glucose resu lt greater than or equal to 126 mg/dL suggests DIABETES MELLITUS per A.D.A. criteria. Hematocrit Auto (Bld) [Volum e fraction]Ordered By: Walter Becker on 07-07-2024 Hematocrit (Bld) [Volume fraction] 38.1 % Low 40-54 [facility] Hemoglobin A1con 07-07-2024 HbA1c (Bld) [Mass fraction] 6.4 % High 3.8-5.6 [facility] Comment on above: Order Comment: 215.2 Result Comment: Norm al < 5.7 % Prediabetic 5.7 - 6.4 % Diabetic >or= 6.5 % Please note range changes. Performed By: #### L 100.0500, L500.4050, [id number] ####[facility] [address] [place], [address] Hemoglobin A1c percentageOrd ered By: Walter Becker on 07-07-2024 HbA1c (Bld) [Mass fraction] 6.4 % High 3.8-5.6 [facility] Comment on above: Normal < 5.7 % Predi abetic 5.7 - 6.4 % Diabetic >or= 6.5 % Please note range changes. Hemoglobin measurementOrdere d By: Walter Becker on 07-07-2024 Hemoglobin (Bld) [Mass/Vol] 12.3 g/dL Low 13.0-16. 5 [facility] Laboratory - Chemistry and C hemistry - challengeOrdered By: Walter Becker on 07-07-2024 AST [Catalytic activity/Vol] 10 U/L Low 15-37 [facility] MCV (mean corpuscular volume ) determinationOrdered By: Walter Becker on 07-07-2024 MCV (RBC) [Entitic vol] 87.6 fL 80-94 [facility] Mean corpuscular hemoglobin (MCH) determinationOrdered By: Walter Becker on 07-07-2024 MCH (RBC) [Entitic mass] 28.3 pg 27.0-32.0 [facility] Mean corpuscular hemoglobin concentration (MCHC) determinationOrdered By: Walter Becker on 07-07-2024 MCHC (RBC) [Mass/Vol] 32.3 g/dL 32-36 [facility] Mean platelet volume determi nationOrdered By: Walter Becker on 07-07-2024 Platelet mean volume (Bld) [Entitic vol] 9.1 fL 6.2-12.0 [facility] Platelet countOrdered By: Horner on 07-07-2024 Platelets (Bld) [#/Vol] 211 10*3/uL 150-450 [facility] Potassium measurementOrdered By: Walter Becker on 07-07-2024 Potassium [Moles/Vol] 3.9 mmol/L 3.5-5.1 [facility] RBC Auto (Bld) [#/Vol]Ordere d By: Walter Becker on 07-07-2024 RBC (Bld) [#/Vol] 4.35 10*6/uL Low 4.6-6.2 [facility] Serum anion gap measurementO rdered By: Walter Becker on 07-07-2024 Anion gap [Moles/Vol] 3 mmol/L Low 5-15 [facility] Serum globulin measurementOr dered By: Walter Becker on 07-07-2024 Globulin (S) [Mass/Vol] 3.0 g/dL 2.2-4.2 [facility] Serum or plasma alanine davis otransferase (ALT) measurementOrdered By: Walter Becker on 07-07-2024 ALT [Catalytic activity/Vol] 20 U/L 16-61 [facility] Serum or plasma albumin antoine urement (mass/volume)Ordered By: Walter Becker on 07-07-2024 Albumin [Mass/Vol] 2.9 g/dL Low 3.2-5.0 [place] Serum or plasma alkaline marilin sphatase measurementOrdered By: Walter Becker on 07-07-2024 ALP [Catalytic activity/Vol] 121 U/L High 45-117 [facility] Serum or plasma calcium antoine urement (mass/volume)Ordered By: Walter Becker on 07-07-2024 Calcium [Mass/Vol] 9.1 mg/dL 8.5-10.1 [place] Serum or plasma creatinine m easurement (mass/volume)Ordered By: Walter Becker on 07-07-2024 Creatinine [Mass/Vol] 1.06 mg/dL 0.70-1.30 [facility] Comment on above: The validity of the calculated GFR & GFRAA in patients over 70 years has not been determined. Clinical correlation is essential. Serum or plasma urea nitroge n measurement (mass/volume)Ordered By: Walter Becker on 07-07-2024 Urea nitrogen [Mass/Vol] 25 mg/dL High 7-18 [facility] Sodium levelOrdered By: Walter Becker on 07-07-2024 Sodium [Moles/Vol] 141 mmol/L 136-145 [place] Total proteinOrdered By: Crystal Becker on 07-07-2024 Protein [Mass/Vol] 5.9 g/dL Low 6.4-8.2 [place] White blood cell (WBC) count Ordered By: Walter Becker on 07-07-2024 WBC (Bld) [#/Vol] 7.6 10*3/uL 4.4-11.0 [place] Vitamin D,25 Hydroxyon 07-02 Vitamin D 25-OH 58.5 ng/mL Normal [facility] Comment on above: Order Comment: 215.2 Result Comment: Laure min D 25(OH) Status Range Deficiency <20 ng/mL (50nmol/L) Insufficiency 20 - 30 ng/mL (50 - 75 nmol/L) Sufficiency 30 - 100 ng/mL (75 - 250 nmol/L) Toxicity >100 ng/mL (>250 nmol/L) Performed By: #### L 506.1000 ####[facility] [address] [place], [address] 15-WN-Gvztkki DOrdered By: Danny Becker on 07-01-2024 Vitamin D 25-Hydroxy 58.5 ng/mL [facility] Comment on above: Vitamin D 25(OH) Sta tus Range Deficiency <20 ng/mL (50nmol/L) Insufficiency 20 - 30 ng/mL (50 - 75 nmol/L) Sufficiency 30 - 100 ng/mL (75 - 250 nmol/L) Toxicity >100 ng/mL (>250 nmol/L) Bedside Glucoseon 06-01-2024 FINGERSTICK GLU 183 mg/dL High 74-106 [facility] Comment on above: Result Comment: JAZ BRANDON OF PATIENT CARE PER NURSING PROTOCOL Performed By: #### L 501.080 ####[facility] [facility] [id number] [place], [address] [facility] on 06-01-2024 [facility] In[facility] Normal [facility] Operative Reporton Operative Report Normal [facility] Laboratory - CoagulationOrde red By: Walter Becker on 10-25-2023 INR Coag (Bld) [Relative time] 3.2 {INR} [facility] PT Coag (PPP) [Time] 32.9 s 11.7-14.9 [facility] - CoagulationOrde red By: Walter Becker on 10-16-2023 INR Coag (Bld) [Relative time] 1.9 {INR} [facility] PT Coag (PPP) [Time] 21.6 s 11.7-14.9 [facility] Basophil percentageOrdered B y: Walter Becker on 10-08-2023 Cholesterol [Mass/Vol] 107 mg/dL <200 [facility] Comment on above: <200 mg/dL Desirable 200-240 mg/dL Borderline >240 mg/dL High Risk Triglyceride [Mass/Vol] 133 mg/dL <199 [facility] Comment on above: The drugs N-Acetylcy steine and Metamizole may falsely depress this assay.Serum Triglycerides Reference Interval Normal <150 mg/dL Borderline high 150 - 199 mg/dL High 200 - 499 mg/dL Very High > or = 500 mg/dL Laboratory - Chemistry and C hemistry - challengeOrdered By: Walter Becker on 10-08-2023 ALT [Catalytic activity/Vol] 18 U/L 16-61 [facility] Cholesterol in HDL [Mass/Vol] 35 mg/dL >40 [facility] Comment on above: The drugs N-Acetylcy steine and Metamizole may falsely depress this assay. Reference Range HDL <40 mg/dL Low HDL Cholesterol HDL >or= 60 mg/dL High HDL Cholesterol Cholesterol in LDL [Mass/Vol] 45 mg/dL 0-130 [facility] CK [Catalytic activity/Vol] 59 U/L 39-308 [facility] No Panel InformationOrdered By: Walter Becker on 10-08-2023 VLDL Cholesterol 27 mg/dL 5-40 [facility] Thin prep Papanicolaou smear with manual screeningOrdered By: Walter Becker on 10-08-2023 Thin prep Papanicolaou smear with manual screening 10 U/L 15-37 [facility] Capillary blood internationa l normalized ratio (INR)Ordered By: Walter Becker on 10-04-2023 INR Coag (BldC) [Relative time] 2.2 [facility] Comment on above: Critical Value > 4.0 Whole blood prothrombin time Ordered By: Walter Becker on 10-04-2023 PT Coag (Bld) [Time] 22.6 s 11.7-14.9 [facility] Capillary blood internationa l normalized ratio (INR)Ordered By: Walter Becker on 10-01-2023 INR Coag (BldC) [Relative time] 1.9 [facility] Comment on above: Critical Value > 4.0 Whole blood prothrombin time Ordered By: Walter Becker on 10-01-2023 PT Coag (Bld) [Time] 19.9 s 11.7-14.9 [facility] Basophil percentageOrdered B y: Walter Becker on 09-25-2023 Bilirubin [Mass/Vol] 0.30 mg/dL 0.20-1.00 [facility] Comment on above: For patients on eltr ombopag therapy, use of Dimension Larue TBIL is not recommended. Chloride [Moles/Vol] 105 mmol/L 98-107 [facility] Glucose [Mass/Vol] 125 mg/dL 74-106 [place] Comment on above: Fasting Glucose resu lt from 100 to 125 mg/dL suggests IMPAIRED HOMEOSTASIS per A.D.A. criteria. Hemoglobin (Bld) [Mass/Vol] 12.6 g/dL 13.0-16. 5 [facility] Potassium [Moles/Vol] 4.2 mmol/L 3.5-5.1 [facility] Protein [Mass/Vol] 6.2 g/dL 6.4-8.2 [place] Sodium [Moles/Vol] 140 mmol/L 136-145 [place] WBC (Bld) [#/Vol] 10.6 10*3/uL 4.4-11.0 [facility] Determination of erythrocyte mean corpuscular volume (MCV)Ordered By: Walter Becker on 09-25-2023 MCV (RBC) [Entitic vol] 85.8 fL 80-94 [facility] Erythrocyte distribution wid th ratioOrdered By: Walter Becker on 09-25-2023 Erythrocyte distribution width (RBC) [Ratio] 13.7 % 11.6-14.6 [facility] Erythrocyte distribution wid th standard deviationOrdered By: Walter Becker on 09-25-2023 Erythrocyte distribution width (RBC) [Entitic vol] 42.4 fL 35.1-43.9 [place] Hematocrit Auto (Bld) [Volum e fraction]Ordered By: Walter Becker on 09-25-2023 Hematocrit (Bld) [Volume fraction] 39.4 % 40-54 [facility] Laboratory - Chemistry and C hemistry - challengeOrdered By: Walter Becker on 09-25-2023 Albumin/Globulin [Mass ratio] 1.1 {ratio} 0.9-2.4 [facility] ALP [Catalytic activity/Vol] 107 U/L 45-117 [facility] ALT [Catalytic activity/Vol] 19 U/L 16-61 [facility] CO2 [Moles/Vol] 29.0 mmol/L 21.0-32.0 [facility] Globulin (S) [Mass/Vol] 3.0 g/dL 2.2-4.2 [facility] Urea nitrogen/Creatinine [Mass ratio] 29.8 mg/mg 10-20 [facility] Laboratory - CoagulationOrde red By: Walter Becker on 09-25-2023 INR Coag (Bld) [Relative time] 2.8 {INR} [facility] PT Coag (PPP) [Time] 28.9 s 11.7-14.9 [facility] Laboratory - Hematology and Cell countsOrdered By: Walter Becker on 09-25-2023 MCH (RBC) [Entitic mass] 27.5 pg 27.0-32.0 [facility] MCHC (RBC) [Mass/Vol] 32.0 g/dL 32-36 [facility] Platelet mean volume (Bld) [Entitic vol] 9.9 fL 6.2-12.0 [facility] Platelets (Bld) [#/Vol] 235 10*3/uL 150-450 [facility] No Panel InformationOrdered By: Walter Becker on 09-25-2023 Estimated GFR (MDRD) Amer 75 mL/min >60 [facility] Comment on above: GFR Calc Estimated GFR (MDRD) Non-Af Amer 62 mL/min >60 [facility] Comment on above: Non- GFR Calc RBC Auto (Bld) [#/Vol]Ordere d By: Walter Becker on 09-25-2023 RBC (Bld) [#/Vol] 4.59 10*6/uL 4.6-6.2 [facility] Serum or plasma calcium antoine urement (mass/volume)Ordered By: Walter Becker on 09-25-2023 Calcium [Mass/Vol] 9.6 mg/dL 8.5-10.1 [facility] Serum or plasma creatinine m easurement (mass/volume)Ordered By: Walter Becker on 09-25-2023 Creatinine [Mass/Vol] 1.21 mg/dL 0.70-1.30 [facility] Comment on above: The validity of the calculated GFR & GFRAA in patients over 70 years has not been determined. Clinical correlation is essential. Serum or plasma urea nitroge n measurement (mass/volume)Ordered By: Walter Becker on 09-25-2023 Urea nitrogen [Mass/Vol] 36 mg/dL 7-18 [facility] Thin prep Papanicolaou smear with manual screeningOrdered By: Walter Becker on 09-25-2023 Thin prep Papanicolaou smear with manual screening 3.2 g/dL 3.2-5.0 [facility] Thin prep Papanicolaou smear with manual screening 11 U/L 15-37 [facility] Thin prep Papanicolaou smear with manual screening 6 5-15 [facility] Laboratory - CoagulationOrde red By: Walter Becker on 09-18-2023 INR Coag (Bld) [Relative time] 1.6 {INR} [facility] PT Coag (PPP) [Time] 18.7 s 11.7-14.9 [facility] Capillary blood internationa l normalized ratio (INR)Ordered By: Walter Becker on 09-13-2023 INR Coag (BldC) [Relative time] 3.1 [facility] Comment on above: Critical Value > 4.0 Whole blood prothrombin time Ordered By: Walter Becker on 09-13-2023 PT Coag (Bld) [Time] 33.3 s 11.7-14.9 [facility] Capillary blood internationa l normalized ratio (INR)Ordered By: Walter Beckre on 09-12-2023 INR Coag (BldC) [Relative time] 1.7 [facility] Comment on above: Critical Value > 4.0 Whole blood prothrombin time Ordered By: Walter Becker on 09-12-2023 PT Coag (Bld) [Time] 19.2 s 11.7-14.9 [facility] Capillary blood internationa l normalized ratio (INR)Ordered By: Walter Becker on 09-09-2023 INR Coag (BldC) [Relative time] 2.9 [facility] Comment on above: Critical Value > 4.0 Whole blood prothrombin time Ordered By: Walter Becker on 09-09-2023 PT Coag (Bld) [Time] 31.5 s 11.7-14.9 [facility] - CoagulationOrde red By: Walter Becker on 08-26-2023 INR Coag (Bld) [Relative time] 2.2 {INR} [facility] PT Coag (PPP) [Time] 24.7 s 11.7-14.9 [facility] Capillary blood internationa l normalized ratio (INR)Ordered By: Walter Becker on 08-19-2023 INR Coag (BldC) [Relative time] 2.7 [facility] Comment on above: Critical Value > 4.0 Whole blood prothrombin time Ordered By: Walter Becker on 08-19-2023 PT Coag (Bld) [Time] 29.2 s 11.7-14.9 [facility] Capillary blood internationa l normalized ratio (INR)Ordered By: Walter Becker on 08-12-2023 INR Coag (BldC) [Relative time] 2.5 [facility] Comment on above: Critical Value > 4.0 Whole blood prothrombin time Ordered By: Walter Becker on 08-12-2023 PT Coag (Bld) [Time] 26.7 s 11.7-14.9 [facility] Capillary blood internationa l normalized ratio (INR)Ordered By: Walter Becker on 08-05-2023 INR Coag (BldC) [Relative time] 1.9 [facility] Comment on above: Critical Value > 4.0 Whole blood prothrombin time Ordered By: Walter Becker on 08-05-2023 PT Coag (Bld) [Time] 20.7 s 11.7-14.9 [facility] - CoagulationOrde red By: Walter Becker on 07-29-2023 INR Coag (Bld) [Relative time] 2.3 {INR} [facility] Comment on above: Critical Value > 4.0 Whole blood prothrombin time Ordered By: Walter Becker on 07-29-2023 PT Coag (Bld) [Time] 25.0 s 11.7-14.9 [facility] - CoagulationOrde red By: Walter Becker on 07-22-2023 INR Coag (Bld) [Relative time] 2.0 {INR} [facility] Comment on above: Critical Value > 4.0 Whole blood prothrombin time Ordered By: Walter Becker on 07-22-2023 PT Coag (Bld) [Time] 22.4 s 11.7-14.9 [facility] - CoagulationOrde red By: Walter Becker on 07-19-2023 INR Coag (Bld) [Relative time] 3.4 {INR} [facility] Comment on above: Critical Value > 4.0 Whole blood prothrombin time Ordered By: Walter Becker on 07-19-2023 PT Coag (Bld) [Time] 36.2 s 11.7-14.9 [facility] - CoagulationOrde red By: Walter Becker on 07-17-2023 INR Coag (Bld) [Relative time] 3.0 {INR} [facility] Comment on above: Critical Value > 4.0 Whole blood prothrombin time Ordered By: Walter Becker on 07-17-2023 PT Coag (Bld) [Time] 32.2 s 11.7-14.9 [facility] - CoagulationOrde red By: Walter Becker on 07-10-2023 INR Coag (Bld) [Relative time] 2.3 {INR} [facility] Comment on above: Critical Value > 4.0 Whole blood prothrombin time Ordered By: Walter Becker on 07-10-2023 PT Coag (Bld) [Time] 25.4 s 11.7-14.9 [facility] - CoagulationOrde red By: Walter Becker on 07-03-2023 INR Coag (Bld) [Relative time] 1.5 {INR} [facility] Comment on above: Critical Value > 4.0 Whole blood prothrombin time Ordered By: Walter Becker on 07-03-2023 PT Coag (Bld) [Time] 16.5 s 11.7-14.9 [facility] - CoagulationOrde red By: Walter Becker on 06-26-2023 INR Coag (Bld) [Relative time] 2.3 {INR} [facility] Comment on above: Critical Value > 4.0 Whole blood prothrombin time Ordered By: Walter Becker on 06-26-2023 PT Coag (Bld) [Time] 24.7 s 11.7-14.9 [facility] - CoagulationOrde red By: Walter Becker on 06-25-2023 INR Coag (Bld) [Relative time] 3.2 {INR} [facility] Comment on above: Critical Value > 4.0 Whole blood prothrombin time Ordered By: Walter Becker on 06-25-2023 PT Coag (Bld) [Time] 34.3 s 11.7-14.9 [facility] - CoagulationOrde red By: Walter Becker on 06-24-2023 INR Coag (Bld) [Relative time] 3.4 {INR} [facility] Comment on above: Critical Value > 4.0 Whole blood prothrombin time Ordered By: Walter Becker on 06-24-2023 PT Coag (Bld) [Time] 36.4 s 11.7-14.9 [facility] - CoagulationOrde red By: Walter Becker on 06-17-2023 INR Coag (Bld) [Relative time] 2.4 {INR} [facility] Comment on above: Critical Value > 4.0 Whole blood prothrombin time Ordered By: Walter Becker on 06-17-2023 PT Coag (Bld) [Time] 26.1 s 11.7-14.9 [facility] - CoagulationOrde red By: Walter Becker on 06-10-2023 INR Coag (Bld) [Relative time] 1.4 {INR} [facility] Comment on above: Critical Value > 4.0 Whole blood prothrombin time Ordered By: Walter Becker on 06-10-2023 PT Coag (Bld) [Time] 15.9 s 11.7-14.9 [facility] Glucose Glucometer (BldC) [M ass/Vol]Ordered By: Kee Merritt on 06-03-2023 Glucose [Mass/Vol] 130 mg/dL 74-106 [place] Comment on above: MANAGEMENT OF PATIEN T CARE PER NURSING PROTOCOL Laboratory - CoagulationOrde red By: Walter Becker on 05-20-2023 INR Coag (Bld) [Relative time] 2.6 {INR} [facility] Comment on above: Critical Value > 4.0 No Panel InformationOrdered By: Walter Becker on 05-20-2023 2.6 [facility] Whole blood prothrombin time Ordered By: Walter Becker on 05-20-2023 PT Coag (Bld) [Time] 27.6 s 11.7-14.9 [facility] Basophil percentageOrdered B y: Walter Becker on 05-15-2023 Basophil percentage 0 SEEN /hpf 0-5 [facility] Basophil percentage 114 mg/dL 74-106 [facility] Basophil percentage 5.9 g/dL 6.4-8.2 [facility] Basophil percentage 0.40 mg/dL 0.20-1.00 [facility] Basophil percentage 140 mmol/L 136-145 [facility] Basophil percentage 4.1 mmol/L 3.5-5.1 [facility] Basophil percentage 105 mmol/L 98-107 [facility] Basophils (Bld) [#/Vol] 10.4 10*3/uL 4.4-11.0 [facility] Bilirubin [Mass/Vol] 0.40 mg/dL 0.20-1.00 [facility] Comment on above: For patients on eltr ombopag therapy, use of Dimension Larue TBIL is not recommended. Chloride [Moles/Vol] 105 mmol/L 98-107 [facility] Glucose [Mass/Vol] 114 mg/dL 74-106 [place] Comment on above: Fasting Glucose resu lt from 100 to 125 mg/dL suggests IMPAIRED HOMEOSTASIS per A.D.A. criteria. Potassium [Moles/Vol] 4.1 mmol/L 3.5-5.1 [facility] Protein [Mass/Vol] 5.9 g/dL 6.4-8.2 [place] Sodium [Moles/Vol] 140 mmol/L 136-145 [place] WBC (Bld) [#/Vol] 10.4 10*3/uL 4.4-11.0 [facility] Bilirubin Test strip Ql (U)O rdered By: Walter Becker on 05-15-2023 Bilirubin Ql (U) Negative Negative [facility] Blood erythrocytes count (nu mber/volume)Ordered By: Walter Becker on 05-15-2023 RBC (Bld) [#/Vol] 4.37 10*6/uL 4.6-6.2 [facility] Blood hemoglobin measurement (mass/volume)Ordered By: Walter Becker on 05-15-2023 Hemoglobin (Bld) [Mass/Vol] 11.6 g/dL 13.0-16. 5 [facility] Blood platelet mean volumeOr dered By: Walter Becker on 05-15-2023 Platelet mean volume (Bld) [Entitic vol] 9.4 fL 6.2-12.0 [facility] Culture, urineOrdered By: Horner on 05-15-2023 Bacteria identified Cx Nom (U) Culture exhibits no growth. [facility] Determination of erythrocyte mean corpuscular volume (MCV)Ordered By: Walter Becker on 05-15-2023 MCV (RBC) [Entitic vol] 84.7 fL 80-94 [facility] Hematocrit Auto (Bld) [Volum e fraction]Ordered By: Walter Becker on 05-15-2023 Hematocrit (Bld) [Volume fraction] 37.0 % 40-54 [facility] Ketones Test strip Ql (U)Ord ered By: Walter Becker on 05-15-2023 Ketones Ql (U) Negative Negative [facility] Laboratory - Chemistry and C hemistry - challengeOrdered By: Walter Becker on 05-15-2023 ALP [Catalytic activity/Vol] 97 U/L 45-117 [facility] ALT [Catalytic activity/Vol] 21 U/L 16-61 [facility] CO2 [Moles/Vol] 28.0 mmol/L 21.0-32.0 [facility] Globulin (S) [Mass/Vol] 3.0 g/dL 2.2-4.2 [facility] Urea nitrogen/Creatinine [Mass ratio] 30.7 mg/mg 10-20 [facility] Laboratory - Hematology and Cell countsOrdered By: Walter Becker on 05-15-2023 Erythrocyte distribution width (RBC) [Entitic vol] 43.3 fL 35.1-43.9 [place] Erythrocyte distribution width (RBC) [Ratio] 14.1 % 11.6-14.6 [facility] MCH (RBC) [Entitic mass] 26.5 pg 27.0-32.0 [facility] MCHC Auto (RBC) [Mass/Vol]Or dered By: Walter Becker on 05-15-2023 MCHC (RBC) [Mass/Vol] 31.4 g/dL 32-36 [facility] Mucus LM Ql (Urine sed)Order ed By: Walter Becker on 05-15-2023 Mucus Ql (Urine sed) 0 SEEN /hpf [facility] Nitrite Test strip Ql (U)Ord ered By: Walter Becker on 05-15-2023 Nitrite Ql (U) Negative Negative [facility] No Panel InformationOrdered By: Walter Becker on 05-15-2023 Estimated GFR (MDRD) Amer 96 mL/min >60 [facility] Comment on above: GFR Calc Estimated GFR (MDRD) Non-Af Amer 79 mL/min >60 [facility] Comment on above: Non- GFR Calc 26.5 pg 27.0-32.0 [facility] 14.1 % 11.6-14.6 [facility] 43.3 fl 35.1-43.9 [facility] 79 mL/min >60 [facility] 96 mL/min >60 [facility] 30.7 RATIO 10-20 [facility] 3.0 g/dL 2.2-4.2 [facility] 97 U/L 45-117 [facility] 21 U/L 16-61 [facility] 28.0 mmol/L 21.0-32.0 [facility] Platelets bldOrdered By: Crystal Becker on 05-15-2023 Platelets (Bld) [#/Vol] 256 10*3/uL 150-450 [facility] Protein Test strip Ql (U)Ord ered By: Walter Becker on 05-15-2023 Protein Ql (U) Negative Negative [facility] Serum or plasma albumin antoine urement (mass/volume)Ordered By: Walter Becker on 05-15-2023 Albumin [Mass/Vol] 2.9 g/dL 3.2-5.0 [place] Serum or plasma albumin/glob ulin mass ratioOrdered By: Walter Becker on 05-15-2023 Albumin/Globulin [Mass ratio] 1.0 {ratio} 0.9-2.4 [facility] Serum or plasma calcium antoine urement (mass/volume)Ordered By: Walter Becker on 05-15-2023 Calcium [Mass/Vol] 8.8 mg/dL 8.5-10.1 [place] Serum or plasma creatinine m easurement (mass/volume)Ordered By: Walter Becker on 05-15-2023 Creatinine [Mass/Vol] 0.98 mg/dL 0.70-1.30 [facility] Comment on above: The validity of the calculated GFR & GFRAA in patients over 70 years has not been determined. Clinical correlation is essential. Serum or plasma urea nitroge n measurement (mass/volume)Ordered By: Walter Becker on 05-15-2023 Urea nitrogen [Mass/Vol] 30 mg/dL 7-18 [facility] Squamous epithelial cells de tection in urine sediment by light microscopyOrdered By: Walter Becker on 05-15-2023 Epithelial cells.squamous LM Ql (Urine sed) 0 SEEN /hpf 0-5 [facility] Thin prep Papanicolaou smear with manual screeningOrdered By: Walter Bekcer on 05-15-2023 Thin prep Papanicolaou smear with manual screening 9 U/L 15-37 [facility] Thin prep Papanicolaou smear with manual screening 7 5-15 [facility] Urine blood detectionOrdered By: Walter Becker on 05-15-2023 RBC Ql (U) Negative Negative [facility] RBC Ql (U) 0 SEEN /hpf 0-5 [facility] Urine clarityOrdered By: Crystal Becker on 05-15-2023 Clarity (U) Clear Clear [facility] Urine color determinationOrd ered By: Walter Becker on 05-15-2023 Color (U) Yellow Yellow [facility] Urine glucose detectionOrder ed By: Walter Becker on 05-15-2023 Glucose Ql (U) Normal mg/dl Normal [facility] Urine leukocyte esterase det ection by dipstickOrdered By: Walter Becker on 05-15-2023 Leukocyte esterase Test strip Ql (U) Negative Negative [facility] Urine pHOrdered By: Walter floyd on 05-15-2023 pH (U) 5.0 [pH] 5.0 - 8.0 [facility] Urine sediment bacteria coun t by microscopy (number/high power field)Ordered By: Walter Becker on 05-15-2023 Bacteria LM.HPF (Urine sed) [#/Area] 0 /[HPF] None Seen [facility] Urine specific gravity measu rementOrdered By: Walter Becker on 05-15-2023 Specific gravity (U) [Rel density] 1.010 1.002-1.03 0 [facility] Urobilinogen Auto test strip Ql (U)Ordered By: Walter Becker on 05-15-2023 Urobilinogen Ql (U) Normal mg/dl Normal [facility] Basophil percentageOrdered B y: Walter Becker on 05-06-2023 Basophil percentage 135 mg/dL 74-106 [facility] Basophil percentage 5.9 g/dL 6.4-8.2 [facility] Basophil percentage 0.40 mg/dL 0.20-1.00 [facility] Basophil percentage 140 mmol/L 136-145 [facility] Basophil percentage 3.7 mmol/L 3.5-5.1 [facility] Basophil percentage 106 mmol/L 98-107 [facility] Basophils (Bld) [#/Vol] 9.4 10*3/uL 4.4-11.0 [facility] Bilirubin [Mass/Vol] 0.40 mg/dL 0.20-1.00 [facility] Comment on above: For patients on eltr ombopag therapy, use of Dimension Larue TBIL is not recommended. Chloride [Moles/Vol] 106 mmol/L 98-107 [facility] Glucose [Mass/Vol] 135 mg/dL 74-106 [place] Comment on above: Fasting Glucose resu lt greater than or equal to 126 mg/dL suggests DIABETES MELLITUS per A.D.A. criteria. Potassium [Moles/Vol] 3.7 mmol/L 3.5-5.1 [facility] Protein [Mass/Vol] 5.9 g/dL 6.4-8.2 [place] Sodium [Moles/Vol] 140 mmol/L 136-145 [place] WBC (Bld) [#/Vol] 9.4 10*3/uL 4.4-11.0 [place] Blood erythrocytes count (nu mber/volume)Ordered By: Walter Becker on 05-06-2023 RBC (Bld) [#/Vol] 4.49 10*6/uL 4.6-6.2 [facility] Blood hemoglobin measurement (mass/volume)Ordered By: Walter Becker on 05-06-2023 Hemoglobin (Bld) [Mass/Vol] 12.0 g/dL 13.0-16. 5 [facility] Blood platelet mean volumeOr dered By: Walter Becker on 05-06-2023 Platelet mean volume (Bld) [Entitic vol] 9.5 fL 6.2-12.0 [facility] Determination of erythrocyte mean corpuscular volume (MCV)Ordered By: Walter Becker on 05-06-2023 MCV (RBC) [Entitic vol] 85.7 fL 80-94 [facility] Hematocrit Auto (Bld) [Volum e fraction]Ordered By: Walter Becker on 05-06-2023 Hematocrit (Bld) [Volume fraction] 38.5 % 40-54 [facility] INR in Blood by Coagulation assayOrdered By: Walter Becker on 05-06-2023 INR Coag (Bld) [Relative time] 2.5 {INR} [facility] Laboratory - Chemistry and C hemistry - challengeOrdered By: Walter Becker on 05-06-2023 ALP [Catalytic activity/Vol] 93 U/L 45-117 [facility] ALT [Catalytic activity/Vol] 23 U/L 16-61 [facility] CO2 [Moles/Vol] 29.0 mmol/L 21.0-32.0 [facility] Globulin (S) [Mass/Vol] 2.9 g/dL 2.2-4.2 [facility] Urea nitrogen/Creatinine [Mass ratio] 25.8 mg/mg 05-03 [facility] Laboratory - CoagulationOrde red By: Walter Becker on 05-06-2023 PT Coag (PPP) [Time] 27.5 s 11.7-14.9 [facility] Laboratory - Hematology and Cell countsOrdered By: Walter Becker on 05-06-2023 Erythrocyte distribution width (RBC) [Entitic vol] 44.4 fL 35.1-43.9 [place] Erythrocyte distribution width (RBC) [Ratio] 14.2 % 11.6-14.6 [facility] MCH (RBC) [Entitic mass] 26.7 pg 27.0-32.0 [facility] MCHC Auto (RBC) [Mass/Vol]Or dered By: Walter Becker on 05-06-2023 MCHC (RBC) [Mass/Vol] 31.2 g/dL 32-36 [facility] No Panel InformationOrdered By: Walter Becker on 05-06-2023 Estimated GFR (MDRD) Amer 102 mL/min >60 [facility] Comment on above: GFR Calc Estimated GFR (MDRD) Non-Af Amer 84 mL/min >60 [facility] Comment on above: Non- GFR Calc 26.7 pg 27.0-32.0 [facility] 14.2 % 11.6-14.6 [facility] 44.4 fl 35.1-43.9 [facility] 27.5 SECONDS 11.7-14.9 [facility] 84 mL/min >60 [facility] 102 mL/min >60 [facility] 25.8 RATIO 05-03 [facility] 2.9 g/dL 2.2-4.2 [facility] 93 U/L 45-117 [facility] 23 U/L 16 [facility] 29.0 mmol/L 21.0-32.0 [facility] Platelets bldOrdered By: Crystal Becker on 05-06-2023 Platelets (Bld) [#/Vol] 238 10*3/uL 150-450 [facility] Serum or plasma albumin antoine urement (mass/volume)Ordered By: Walter Becker on 05-06-2023 Albumin [Mass/Vol] 3.0 g/dL 3.2-5.0 [place] Serum or plasma albumin/glob ulin mass ratioOrdered By: Walter Becker on 05-06-2023 Albumin/Globulin [Mass ratio] 1.0 {ratio} 0.9-2.4 [facility] Serum or plasma calcium antoine urement (mass/volume)Ordered By: Walter Becker on 05-06-2023 Calcium [Mass/Vol] 9.1 mg/dL 8.5-10.1 [place] Serum or plasma creatinine m easurement (mass/volume)Ordered By: Walter Becker on 05-06-2023 Creatinine [Mass/Vol] 0.93 mg/dL 0.70-1.30 [facility] Comment on above: The validity of the calculated GFR & GFRAA in patients over 70 years has not been determined. Clinical correlation is essential. Serum or plasma urea nitroge n measurement (mass/volume)Ordered By: Walter Becker on 05-06-2023 Urea nitrogen [Mass/Vol] 24 mg/dL 7-18 [facility] Thin prep Papanicolaou smear with manual screeningOrdered By: Walter Becker on 05-06-2023 Thin prep Papanicolaou smear with manual screening 10 U/L 15-37 [facility] Thin prep Papanicolaou smear with manual screening 5 5-15 [facility] - CoagulationOrde red By: Walter Becker on 04-29-2023 INR Coag (Bld) [Relative time] 2.8 {INR} [facility] Comment on above: Critical Value > 4.0 No Panel InformationOrdered By: Walter Becker on 04-29-2023 2.8 [facility] Whole blood prothrombin time Ordered By: Walter Becker on 04-29-2023 PT Coag (Bld) [Time] 29.6 s 11.7-14.9 [facility] - CoagulationOrde red By: Walter Becker on 04-15-2023 INR Coag (Bld) [Relative time] 2.5 {INR} [facility] Comment on above: Critical Value > 4.0 No Panel InformationOrdered By: Walter Becker on 04-15-2023 2.5 [facility] Whole blood prothrombin time Ordered By: Walter Becker on 04-15-2023 PT Coag (Bld) [Time] 27.3 s 11.7-14.9 [facility] Basophil percentageOrdered B y: Walter Becker on 04-09-2023 Basophil percentage 115 mg/dL 74-106 [facility] Basophil percentage 5.8 g/dL 6.4-8.2 [facility] Basophil percentage 0.40 mg/dL 0.20-1.00 [facility] Basophil percentage 141 mmol/L 136-145 [facility] Basophil percentage 3.9 mmol/L 3.5-5.1 [facility] Basophil percentage 106 mmol/L 98-107 [facility] Basophils (Bld) [#/Vol] 10.2 10*3/uL 4.4-11.0 [facility] Bilirubin [Mass/Vol] 0.40 mg/dL 0.20-1.00 [facility] Comment on above: For patients on eltr ombopag therapy, use of Dimension [place]ue TBIL is not recommended. Chloride [Moles/Vol] 106 mmol/L 98-107 [facility] Glucose [Mass/Vol] 115 mg/dL 74-106 [place] Comment on above: Fasting Glucose resu lt from 100 to 125 mg/dL suggests IMPAIRED HOMEOSTASIS per A.D.A. criteria. Potassium [Moles/Vol] 3.9 mmol/L 3.5-5.1 [facility] Protein [Mass/Vol] 5.8 g/dL 6.4-8.2 [place] Sodium [Moles/Vol] 141 mmol/L 136-145 [place] WBC (Bld) [#/Vol] 10.2 10*3/uL 4.4-11.0 [facility] Blood erythrocytes count (nu mber/volume)Ordered By: Walter Becker on 04-09-2023 RBC (Bld) [#/Vol] 4.16 10*6/uL 4.6-6.2 [facility] Blood hemoglobin measurement (mass/volume)Ordered By: Walter Becker on 04-09-2023 Hemoglobin (Bld) [Mass/Vol] 11.3 g/dL 13.0-16. 5 [facility] Blood platelet mean volumeOr dered By: Walter Becker on 04-09-2023 Platelet mean volume (Bld) [Entitic vol] 9.4 fL 6.2-12.0 [facility] Determination of erythrocyte mean corpuscular volume (MCV)Ordered By: Walter Becker on 04-09-2023 MCV (RBC) [Entitic vol] 86.5 fL 80-94 [facility] Hematocrit Auto (Bld) [Volum e fraction]Ordered By: Walter Becker on 04-09-2023 Hematocrit (Bld) [Volume fraction] 36.0 % 40-54 [facility] - Chemistry and C hemistry - challengeOrdered By: Walter Becker on 04-09-2023 ALP [Catalytic activity/Vol] 105 U/L 45-117 [facility] ALT [Catalytic activity/Vol] 22 U/L 16-61 [facility] CO2 [Moles/Vol] 31.0 mmol/L 21.0-32.0 [facility] Globulin (S) [Mass/Vol] 2.9 g/dL 2.2-4.2 [facility] Urea nitrogen/Creatinine [Mass ratio] 29.9 mg/mg 10-20 [facility] - Hematology and Cell countsOrdered By: Walter Becker on 04-09-2023 Erythrocyte distribution width (RBC) [Entitic vol] 46.8 fL 35.1-43.9 [place] Erythrocyte distribution width (RBC) [Ratio] 14.6 % 11.6-14.6 [facility] MCH (RBC) [Entitic mass] 27.2 pg 27.0-32.0 [facility] MCHC Auto (RBC) [Mass/Vol]Or dered By: Walter Becker on 04-09-2023 MCHC (RBC) [Mass/Vol] 31.4 g/dL 32-36 [facility] No Panel InformationOrdered By: Watler Becker on 04-09-2023 Estimated GFR (MDRD) Amer 101 mL/min >60 [facility] Comment on above: GFR Calc Estimated GFR (MDRD) Non-Af Amer 84 mL/min >60 [facility] Comment on above: Non- GFR Calc 27.2 pg 27.0-32.0 [facility] 14.6 % 11.6-14.6 [facility] 46.8 fl 35.1-43.9 [facility] 84 mL/min >60 [facility] 101 mL/min >60 [facility] 29.9 RATIO 10-20 [facility] 2.9 g/dL 2.2-4.2 [facility] 105 U/L 45-117 [facility] 22 U/L 16-61 [facility] 31.0 mmol/L 21.0-32.0 [facility] Platelets bldOrdered By: Crystal Becker on 04-09-2023 Platelets (Bld) [#/Vol] 229 10*3/uL 150-450 [facility] Serum or plasma albumin antoine urement (mass/volume)Ordered By: Walter Becker on 04-09-2023 Albumin [Mass/Vol] 2.9 g/dL 3.2-5.0 [place] Serum or plasma albumin/glob ulin mass ratioOrdered By: Walter Becker on 04-09-2023 Albumin/Globulin [Mass ratio] 1.0 {ratio} 0.9-2.4 [facility] Serum or plasma calcium antoine urement (mass/volume)Ordered By: Walter Becker on 04-09-2023 Calcium [Mass/Vol] 9.0 mg/dL 8.5-10.1 [place] Serum or plasma creatinine m easurement (mass/volume)Ordered By: Walter Becker on 04-09-2023 Creatinine [Mass/Vol] 0.94 mg/dL 0.70-1.30 [facility] Comment on above: The validity of the calculated GFR & GFRAA in patients over 70 years has not been determined. Clinical correlation is essential. Serum or plasma urea nitroge n measurement (mass/volume)Ordered By: Walter Becker on 04-09-2023 Urea nitrogen [Mass/Vol] 28 mg/dL 7-18 [facility] Thin prep Papanicolaou smear with manual screeningOrdered By: Walter Becker on 04-09-2023 Thin prep Papanicolaou smear with manual screening 7 U/L 15-37 [facility] Thin prep Papanicolaou smear with manual screening 4 5-15 [facility] - CoagulationOrde red By: Walter Becker on 04-08-2023 INR Coag (Bld) [Relative time] 2.4 {INR} [facility] Comment on above: Critical Value > 4.0 No Panel InformationOrdered By: Walter Becker on 04-08-2023 2.4 [facility] Whole blood prothrombin time Ordered By: Walter Becker on 04-08-2023 PT Coag (Bld) [Time] 25.9 s 11.7-14.9 [facility] - CoagulationOrde red By: Walter Becker on 04-01-2023 INR Coag (Bld) [Relative time] 1.9 {INR} [facility] Comment on above: Critical Value > 4.0 No Panel InformationOrdered By: Walter Becker on 04-01-2023 1.9 [facility] Whole blood prothrombin time Ordered By: Walter Becker on 04-01-2023 PT Coag (Bld) [Time] 21.0 s 11.7-14.9 [facility] - CoagulationOrde red By: Walter Becker on 03-25-2023 INR Coag (Bld) [Relative time] 1.9 {INR} [facility] Comment on above: Critical Value > 4.0 No Panel InformationOrdered By: Walter Becker on 03-25-2023 1.9 [facility] Whole blood prothrombin time Ordered By: Walter Becker on 03-25-2023 PT Coag (Bld) [Time] 21.1 s 11.7-14.9 [facility] INR in Blood by Coagulation assayOrdered By: Walter Becker on 03-11-2023 INR Coag (Bld) [Relative time] 2.4 {INR} [facility] - CoagulationOrde red By: Walter Becker on 03-11-2023 PT Coag (PPP) [Time] 26.6 s 11.7-14.9 [facility] No Panel InformationOrdered By: Walter Becker on 03-11-2023 26.6 SECONDS 11.7-14.9 [facility] Whole blood hemoglobin A1c/t otal hemoglobin ratio (mass fraction)Ordered By: Walter Becker on 03-11-2023 HbA1c (Bld) [Mass fraction] 5.5 % 3.8-5.6 [facility] Comment on above: Normal < 5.7 % Predi abetic 5.7 - 6.4 % Diabetic >or= 6.5 % Please note range changes. Basophil percentageOrdered B y: Walter Becker on 03-04-2023 Basophil percentage 114 mg/dL 74-106 [facility] Basophil percentage 5.8 g/dL 6.4-8.2 [facility] Basophil percentage 0.30 mg/dL 0.20-1.00 [facility] Basophil percentage 139 mmol/L 136-145 [facility] Basophil percentage 4.0 mmol/L 3.5-5.1 [facility] Basophil percentage 106 mmol/L 98-107 [facility] Bilirubin [Mass/Vol] 0.30 mg/dL 0.20-1.00 [facility] Comment on above: For patients on eltr ombopag therapy, use of Dimension [place] TBIL is not recommended. Chloride [Moles/Vol] 106 mmol/L 98-107 [facility] Glucose [Mass/Vol] 114 mg/dL 74-106 [place] Comment on above: Fasting Glucose resu lt from 100 to 125 mg/dL suggests IMPAIRED HOMEOSTASIS per A.D.A. criteria. Potassium [Moles/Vol] 4.0 mmol/L 3.5-5.1 [facility] Protein [Mass/Vol] 5.8 g/dL 6.4-8.2 [place] Sodium [Moles/Vol] 139 mmol/L 136-145 [place] Blood hemoglobin measurement (mass/volume)Ordered By: Walter Becker on 03-04-2023 Hemoglobin (Bld) [Mass/Vol] 10.6 g/dL 13.0-16. 5 [facility] Hematocrit Auto (Bld) [Volum e fraction]Ordered By: Walter Becker on 03-04-2023 Hematocrit (Bld) [Volume fraction] 35.7 % 40-54 [facility] INR in Blood by Coagulation assayOrdered By: Walter Becker on 03-04-2023 INR Coag (Bld) [Relative time] 2.3 {INR} [facility] - Chemistry and C hemistry - challengeOrdered By: Walter Becker on 03-04-2023 ALP [Catalytic activity/Vol] 92 U/L 45- [facility] ALT [Catalytic activity/Vol] 25 U/L [facility] CO2 [Moles/Vol] 28.0 mmol/L 21.0-32.0 [facility] Globulin (S) [Mass/Vol] 3.0 g/dL 2.2-4.2 [facility] Urea nitrogen/Creatinine [Mass ratio] 33.0 mg/mg 10 [facility] - CoagulationOrde red By: Walter Becker on 03-04-2023 PT Coag (PPP) [Time] 25.8 s 11.7-14.9 [facility] No Panel InformationOrdered By: Walter Becker on 03-04-2023 Estimated GFR (MDRD) Amer 88 mL/min >60 [facility] Comment on above: GFR Calc Estimated GFR (MDRD) Non-Af Amer 72 mL/min >60 [facility] Comment on above: Non- GFR Calc 25.8 SECONDS 11.7-14.9 [facility] 72 mL/min >60 [facility] 88 mL/min >60 [facility] 33.0 RATIO 05-03 [facility] 3.0 g/dL 2.2-4.2 [facility] 92 U/L 45-117 [facility] 25 U/L 16- [facility] 28.0 mmol/L 21.0-32.0 [facility] Serum or plasma albumin antoine urement (mass/volume)Ordered By: Walter Becker on 03-04-2023 Albumin [Mass/Vol] 2.8 g/dL 3.2-5.0 [place] Serum or plasma albumin/glob ulin mass ratioOrdered By: Walter Becker on 03-04-2023 Albumin/Globulin [Mass ratio] 0.9 {ratio} 0.9-2.4 [facility] Serum or plasma calcium antoine urement (mass/volume)Ordered By: Walter Becker on 03-04-2023 Calcium [Mass/Vol] 9.1 mg/dL 8.5-10.1 [place] Serum or plasma creatinine m easurement (mass/volume)Ordered By: Walter Becker on 03-04-2023 Creatinine [Mass/Vol] 1.06 mg/dL 0.70-1.30 [facility] Comment on above: The validity of the calculated GFR & GFRAA in patients over 70 years has not been determined. Clinical correlation is essential. Serum or plasma urea nitroge n measurement (mass/volume)Ordered By: Walter Becker on 03-04-2023 Urea nitrogen [Mass/Vol] 35 mg/dL 7-18 [facility] Thin prep Papanicolaou smear with manual screeningOrdered By: Walter Becker on 03-04-2023 Thin prep Papanicolaou smear with manual screening 12 U/L 15-37 [facility] Thin prep Papanicolaou smear with manual screening 5 5-15 [facility] - CoagulationOrde red By: Walter Becker on 03-01-2023 INR Coag (Bld) [Relative time] 2.2 {INR} [facility] Comment on above: Critical Value > 4.0 No Panel InformationOrdered By: Walter Becker on 03-01-2023 2.2 [facility] Whole blood prothrombin time Ordered By: Walter Becker on 03-01-2023 PT Coag (Bld) [Time] 24.4 s 11.7-14.9 [facility] Blood hemoglobin measurement (mass/volume)Ordered By: Walter Becker on 02-25-2023 Hemoglobin (Bld) [Mass/Vol] 11.0 g/dL 13.0-16. 5 [facility] Hematocrit Auto (Bld) [Volum e fraction]Ordered By: Walter Becker on 02-25-2023 Hematocrit (Bld) [Volume fraction] 36.8 % 40-54 [facility] INR in Blood by Coagulation assayOrdered By: Walter Becker on 02-25-2023 INR Coag (Bld) [Relative time] 2.6 {INR} [facility] - CoagulationOrde red By: Walter Becker on 02-25-2023 PT Coag (PPP) [Time] 28.0 s 11.7-14.9 [facility] No Panel InformationOrdered By: Walter Becker on 02-25-2023 28.0 SECONDS 11.7-14.9 [facility] - CoagulationOrde red By: Walter Becker on 02-22-2023 INR Coag (Bld) [Relative time] 2.6 {INR} [facility] Comment on above: Critical Value > 4.0 No Panel InformationOrdered By: Walter Becker on 02-22-2023 2.6 [facility] Whole blood prothrombin time Ordered By: Walter Becker on 02-22-2023 PT Coag (Bld) [Time] 28.4 s 11.7-14.9 [facility] No Panel InformationOrdered By: Walter Becker on 02-20-2023 2.9 [facility] Whole blood prothrombin time Ordered By: Walter Becker on 02-20-2023 PT Coag (Bld) [Time] 30.7 s 11.7-14.9 [facility] Blood hemoglobin measurement (mass/volume)Ordered By: Walter Becker on 02-18-2023 Hemoglobin (Bld) [Mass/Vol] 8.8 g/dL 13.0-16. 5 [facility] Hematocrit Auto (Bld) [Volum e fraction]Ordered By: Walter Becker on 02-18-2023 Hematocrit (Bld) [Volume fraction] 28.2 % 40-54 [facility] INR in Blood by Coagulation assayOrdered By: Walter Becker on 02-18-2023 INR Coag (Bld) [Relative time] 2.8 {INR} [facility] No Panel InformationOrdered By: Walter Becker on 02-18-2023 29.5 SECONDS 11.7-14.9 [facility] No Panel InformationOrdered By: Walter Becker on 02-14-2023 2.2 [facility] Whole blood prothrombin time Ordered By: Walter Becker on 02-14-2023 PT Coag (Bld) [Time] 24.3 s 11.7-14.9 [facility] Absolute lymphocyte countOrd ered By: Gabriel Giraldo on 02-13-2023 Lymphocytes Auto (Unsp spec) [#/Vol] 0.84 10*3/uL 0.83-4.51 [facility] Basophil percentageOrdered B y: Gabriel Giraldo on 02-13-2023 Basophils (Bld) [#/Vol] 5.4 10*3/uL 4.4-11.0 [facility] Basophils (Bld) [#/Vol] 3.6 10*3/uL 2.0-7.7 [facility] Basophils/100 WBC (Bld) 67.5 % 47-70 [facility] Basophils/100 WBC (Bld) 4.1 % 0-5 [facility] Basophils/100 WBC (Bld) 0.4 % 0-1 [facility] Blood erythrocytes count (nu mber/volume)Ordered By: Gabriel Giraldo on 02-13-2023 RBC (Bld) [#/Vol] 2.76 10*6/uL 4.6-6.2 [facility] Blood hemoglobin measurement (mass/volume)Ordered By: Gabriel Giraldo on 02-13-2023 Hemoglobin (Bld) [Mass/Vol] 7.5 g/dL 13.0-16. 5 [facility] Blood lymphocytes/100 leukoc ytesOrdered By: Gabriel Giraldo on 02-13-2023 Lymphocytes/100 WBC (Bld) 15.7 % 19-41 [facility] Blood monocytes/100 leukocyt esOrdered By: Gabriel Giraldo on 02-13-2023 Monocytes/100 WBC (Bld) 11.2 % 0-10 [facility] Blood platelet mean volumeOr dered By: Gabriel Giraldo on 02-13-2023 Platelet mean volume (Bld) [Entitic vol] 9.2 fL 6.2-12.0 [facility] COVID-19 virus antigen assay Ordered By: Gabriel Giraldo on 02-13-2023 SARS-CoV-2 (COVID-19) Ag IA.rapid Ql (Resp) [facility] SARS-CoV-2 (COVID-19) Ag IA.rapid Ql (Resp) [facility] Determination of erythrocyte mean corpuscular volume (MCV)Ordered By: Gabriel Giraldo on 02-13-2023 MCV (RBC) [Entitic vol] 88.4 fL 80-94 [facility] Glucose Glucometer (BldC) [M ass/Vol]Ordered By: Gabriel Giraldo on 02-13-2023 Glucose [Mass/Vol] 146 mg/dL 74-106 [place] Hematocrit Auto (Bld) [Volum e fraction]Ordered By: Gabriel Giraldo on 02-13-2023 Hematocrit (Bld) [Volume fraction] 24.4 % 40-54 [facility] MCHC Auto (RBC) [Mass/Vol]Or dered By: Gabriel Giraldo on 02-13-2023 MCHC (RBC) [Mass/Vol] 30.7 g/dL 32-36 [facility] No Panel InformationOrdered By: Gabriel Giraldo on 02-13-2023 27.2 pg 27.0-32.0 [facility] 16.6 % 11.6-14.6 [facility] 54.5 fl 35.1-43.9 [facility] 1.100 % 0.0-0.9 [facility] 0.9 % 0-5 [facility] Platelets bldOrdered By: Elis Giraldo on 02-13-2023 Platelets (Bld) [#/Vol] 194 10*3/uL 150-450 [facility] INR in Blood by Coagulation assayOrdered By: Gabriel Giraldo on 02-12-2023 INR Coag (Bld) [Relative time] 1.6 {INR} [facility] No Panel InformationOrdered By: Smith Leija on 02-12-2023 No growth in 5 days. [facility] No growth in 5 days. [facility] No Panel InformationOrdered By: Gabriel Giraldo on 02-12-2023 19.3 SECONDS 11.7-14.9 [facility] Basophil percentageOrdered B y: Dandy Sauer on 02-11-2023 Basophil percentage 2.2 mmol/L 0.4-2.0 [facility] Basophil percentage 2.8 mmol/L 0.4-2.0 [facility] Basophil percentageOrdered B y: Walter Becker on 02-11-2023 Basophil percentage 168 mg/dL 74-106 [facility] Basophil percentage 135 mmol/L 136-145 [facility] Basophil percentage 3.7 mmol/L 3.5-5.1 [facility] Basophil percentage 103 mmol/L 98-107 [facility] Basophils (Bld) [#/Vol] 10.2 10*3/uL 4.4-11.0 [facility] Blood erythrocytes count (nu mber/volume)Ordered By: Walter Becker on 02-11-2023 RBC (Bld) [#/Vol] 3.16 10*6/uL 4.6-6.2 [facility] Blood hemoglobin measurement (mass/volume)Ordered By: Walter Becker on 02-11-2023 Hemoglobin (Bld) [Mass/Vol] 8.7 g/dL 13.0-16. 5 [facility] Blood platelet mean volumeOr dered By: Walter Becker on 02-11-2023 Platelet mean volume (Bld) [Entitic vol] 9.3 fL 6.2-12.0 [facility] Determination of erythrocyte mean corpuscular volume (MCV)Ordered By: Walter Becker on 02-11-2023 MCV (RBC) [Entitic vol] 87.0 fL 80-94 [facility] Hematocrit Auto (Bld) [Volum e fraction]Ordered By: Walter Becker on 02-11-2023 Hematocrit (Bld) [Volume fraction] 27.5 % 40-54 [facility] INR in Blood by Coagulation assayOrdered By: Walter Becker on 02-11-2023 INR Coag (Bld) [Relative time] 1.5 {INR} [facility] MCHC Auto (RBC) [Mass/Vol]Or dered By: Walter Becker on 02-11-2023 MCHC (RBC) [Mass/Vol] 31.6 g/dL 32-36 [facility] No Panel InformationOrdered By: Walter Becker on 02-11-2023 27.5 pg 27.0-32.0 [facility] 17.3 % 11.6-14.6 [facility] 55.7 fl 35.1-43.9 [facility] 18.2 SECONDS 11.7-14.9 [facility] 67 mL/min >60 [facility] 81 mL/min >60 [facility] 21.1 RATIO 10-20 [facility] 27.0 mmol/L 21.0-32.0 [facility] Platelets bldOrdered By: Crystal Becker on 02-11-2023 Platelets (Bld) [#/Vol] 200 10*3/uL 150-450 [facility] Serum or plasma calcium antoine urement (mass/volume)Ordered By: Walter Becker on 02-11-2023 Calcium [Mass/Vol] 8.7 mg/dL 8.5-10.1 [place] Serum or plasma creatinine m easurement (mass/volume)Ordered By: Walter Becker on 02-11-2023 Creatinine [Mass/Vol] 1.14 mg/dL 0.70-1.30 [facility] Serum or plasma urea nitroge n measurement (mass/volume)Ordered By: Walter Becker on 02-11-2023 Urea nitrogen [Mass/Vol] 24 mg/dL 7-18 [facility] Thin prep Papanicolaou smear with manual screeningOrdered By: Walter Becker on 02-11-2023 Thin prep Papanicolaou smear with manual screening 5 5-15 [facility] Absolute lymphocyte countOrd ered By: Geremias Carey on 02-10-2023 Lymphocytes Auto (Unsp spec) [#/Vol] 0.46 10*3/uL 0.83-4.51 [facility] Bacteria identified Cx Nom ( U)Ordered By: Geremias Carey on 02-10-2023 Culture, urine Klebsiella pneumonia e sp pneum [facility] Culture, urine Klebsiella pneumonia e sp pneum [facility] Basophil percentageOrdered B y: Geremias Carey on 02-10-2023 Basophil percentage 1.9 mmol/L 0.4-2.0 [facility] Basophil percentage 25-50 SEEN /hpf 0-5 [facility] Basophil percentage 158 mg/dL 74-106 [facility] Basophil percentage 5.6 g/dL 6.4-8.2 [facility] Basophil percentage 0.90 mg/dL 0.20-1.00 [facility] Basophil percentage 136 mmol/L 136-145 [facility] Basophil percentage 3.7 mmol/L 3.5-5.1 [facility] Basophil percentage 103 mmol/L 98-107 [facility] Basophils (Bld) [#/Vol] 10.8 10*3/uL 4.4-11.0 [facility] Basophils (Bld) [#/Vol] 9.2 10*3/uL 2.0-7.7 [facility] Basophils/100 WBC (Bld) 84.8 % 47-70 [facility] Basophils/100 WBC (Bld) 0.2 % 0-5 [facility] Basophils/100 WBC (Bld) 0.1 % 0-1 [facility] Bilirubin Test strip Ql (U)O rdered By: Geremias Carey on 02-10-2023 Bilirubin Ql (U) Negative Negative [facility] Blood erythrocytes count (nu mber/volume)Ordered By: Geremias Carey on 02-10-2023 RBC (Bld) [#/Vol] 3.20 10*6/uL 4.6-6.2 [facility] Blood hemoglobin measurement (mass/volume)Ordered By: Geremias Carey on 02-10-2023 Hemoglobin (Bld) [Mass/Vol] 8.8 g/dL 13.0-16. 5 [facility] Blood lymphocytes/100 leukoc ytesOrdered By: Geremias Carey on 02-10-2023 Lymphocytes/100 WBC (Bld) 4.3 % 19-41 [facility] Blood manual differential co mment interpretation (narrative result)Ordered By: Geremias Carey on 02-10-2023 Manual differential comment Ori (Bld) [Interp] SCANNED [facility] Blood monocytes/100 leukocyt esOrdered By: Geremias Carey on 02-10-2023 Monocytes/100 WBC (Bld) 9.8 % 0-10 [facility] Blood platelet mean volumeOr dered By: Geremias Carey on 02-10-2023 Platelet mean volume (Bld) [Entitic vol] 9.3 fL 6.2-12.0 [facility] Determination of erythrocyte mean corpuscular volume (MCV)Ordered By: Geremias Carey on 02-10-2023 MCV (RBC) [Entitic vol] 87.8 fL 80-94 [facility] Direct bilirubinOrdered By: Geremias Carey on 02-10-2023 Bilirubin.direct [Mass/Vol] 0.43 mg/dL 0.00-0.3 0 [facility] Hematocrit Auto (Bld) [Volum e fraction]Ordered By: Geremias Carey on 02-10-2023 Hematocrit (Bld) [Volume fraction] 28.1 % 40-54 [facility] INR in Blood by Coagulation assayOrdered By: Geremias Carey on 02-10-2023 INR Coag (Bld) [Relative time] 1.4 {INR} [facility] Influenza virus A and B and SARS-CoV-2 (COVID-19) Ag panel - Upper respiratory specimOrdered By: Geremias Carey on 02-10-2023 SARS-CoV-2 (COVID-19) RNA ANGELY+probe Ql (Resp) [facility] SARS-CoV-2 (COVID-19) RNA ANGELY+probe Ql (Resp) [facility] Ketones Test strip Ql (U)Ord ered By: Geremias Carey on 02-10-2023 Ketones Ql (U) 5 mg/dl Negative [facility] MCHC Auto (RBC) [Mass/Vol]Or dered By: Geremias Carey on 02-10-2023 MCHC (RBC) [Mass/Vol] 31.3 g/dL 32-36 [facility] Mucus LM Ql (Urine sed)Order ed By: Geremias Carey on 02-10-2023 Mucus Ql (Urine sed) 0 SEEN /hpf [facility] Nitrite Test strip Ql (U)Ord ered By: Geremias Carey on 02-10-2023 Nitrite Ql (U) Negative Negative [facility] No Panel InformationOrdered By: Geremias Carey on 02-10-2023 GNR lactose first assistant [facility] GNR lactose first assistant [facility] 27.5 pg 27.0-32.0 [facility] 17.3 % 11.6-14.6 [facility] 55.2 fl 35.1-43.9 [facility] 0.800 % 0.0-0.9 [facility] 0 % 0-5 [facility] 17.5 SECONDS 11.7-14.9 [facility] 42.1 Seconds 24.1-36.2 [facility] 70 mL/min >60 [facility] 85 mL/min >60 [facility] 66.18 ml/min [facility] 23.9 RATIO 10-20 [facility] 3.3 g/dL 2.2-4.2 [facility] 100 U/L 45-117 [facility] 18 U/L 16-61 [facility] 24.0 mmol/L 21.0-32.0 [facility] Platelets bldOrdered By: Luis Enrique Carey on 02-10-2023 Platelets (Bld) [#/Vol] 189 10*3/uL 150-450 [facility] Protein Test strip Ql (U)Ord ered By: Geremias Carey on 02-10-2023 Protein Ql (U) 100 mg/dl Negative [facility] Serum or plasma albumin antoine urement (mass/volume)Ordered By: Geremias Carey on 02-10-2023 Albumin [Mass/Vol] 2.3 g/dL 3.2-5.0 [place] Serum or plasma calcium antoine urement (mass/volume)Ordered By: Geremias Carey on 02-10-2023 Calcium [Mass/Vol] 8.3 mg/dL 8.5-10.1 [place] Serum or plasma creatinine m easurement (mass/volume)Ordered By: Geremias Carey on 02-10-2023 Creatinine [Mass/Vol] 1.09 mg/dL 0.70-1.30 [facility] Serum or plasma urea nitroge n measurement (mass/volume)Ordered By: Geremias Carey on 02-10-2023 Urea nitrogen [Mass/Vol] 26 mg/dL 7-18 [facility] Serum procalcitonin measurem entOrdered By: Geremias Carey on 02-10-2023 Procalcitonin [Mass/Vol] 1.43 ng/mL 0.00-0.09 [facility] Squamous epithelial cells de tection in urine sediment by light microscopyOrdered By: Geremias Carey on 02-10-2023 Epithelial cells.squamous LM Ql (Urine sed) 0 SEEN /hpf 0-5 [facility] Thin prep Papanicolaou smear with manual screeningOrdered By: Geremias Carey on 02-10-2023 Thin prep Papanicolaou smear with manual screening 10 U/L 15-37 [facility] Thin prep Papanicolaou smear with manual screening 9 5-15 [facility] Urine blood detectionOrdered By: Geremias Carey on 02-10-2023 RBC Ql (U) 250 /ul Negative [facility] RBC Ql (U) 25-50 SEEN /hpf 0-5 [facility] Urine clarityOrdered By: Luis Enrique Carey on 02-10-2023 Clarity (U) Sl. Cloudy Clear [facility] Urine color determinationOrd ered By: Geremias Carey on 02-10-2023 Color (U) Yellow Yellow [facility] Urine glucose detectionOrder ed By: Geremias Carey on 02-10-2023 Glucose Ql (U) Normal mg/dl Normal [facility] Urine leukocyte esterase det ection by dipstickOrdered By: Geremias Carey on 02-10-2023 Leukocyte esterase Test strip Ql (U) 500 /ul Negative [facility] Urine pHOrdered By: Geremias torrez on 02-10-2023 pH (U) 5.0 [pH] 5.0 - 8.0 [facility] Urine sediment bacteria coun t by microscopy (number/high power field)Ordered By: Geremias Carey on 02-10-2023 Bacteria LM.HPF (Urine sed) [#/Area] 4 /[HPF] None Seen [facility] Urine specific gravity measu rementOrdered By: Geremias Carey on 02-10-2023 Specific gravity (U) [Rel density] 1.015 1.002-1.03 0 [facility] Urobilinogen Auto test strip Ql (U)Ordered By: Geremias Carey on 02-10-2023 Urobilinogen Ql (U) Normal mg/dl Normal [facility] Blood hemoglobin measurement (mass/volume)Ordered By: Walter Becker on 02-07-2023 Hemoglobin (Bld) [Mass/Vol] 8.8 g/dL 13.0-16. 5 [facility] Hematocrit Auto (Bld) [Volum e fraction]Ordered By: Walter Becker on 02-07-2023 Hematocrit (Bld) [Volume fraction] 29.0 % 40-54 [facility] COVID-19 virus antigen assay Ordered By: Caryl Mcdermott on 02-05-2023 SARS-CoV-2 (COVID-19) Ag IA.rapid Ql (Resp) [facility] SARS-CoV-2 (COVID-19) Ag IA.rapid Ql (Resp) [facility] Glucose Glucometer (BldC) [M ass/Vol]Ordered By: Caryl Mcdermott on 02-05-2023 Glucose [Mass/Vol] 163 mg/dL 74-106 [place] Absolute lymphocyte countOrd ered By: Yisel Rendon on 02-04-2023 Lymphocytes Auto (Unsp spec) [#/Vol] 1.39 10*3/uL 0.83-4.51 [facility] Basophil percentageOrdered B y: Yisel Rendon on 02-04-2023 Basophil percentage 151 mg/dL 74-106 [facility] Basophil percentage 141 mmol/L 136-145 [facility] Basophil percentage 3.5 mmol/L 3.5-5.1 [facility] Basophil percentage 110 mmol/L 98-107 [facility] Basophils (Bld) [#/Vol] 8.1 10*3/uL 4.4-11.0 [facility] Basophils (Bld) [#/Vol] 5.8 10*3/uL 2.0-7.7 [facility] Basophils/100 WBC (Bld) 71.5 % 47-70 [facility] Basophils/100 WBC (Bld) 2.6 % 0-5 [facility] Basophils/100 WBC (Bld) 0.1 % 0-1 [facility] Blood erythrocytes count (nu mber/volume)Ordered By: Yisel Rendon on 02-04-2023 RBC (Bld) [#/Vol] 3.23 10*6/uL 4.6-6.2 [facility] Blood hemoglobin measurement (mass/volume)Ordered By: Yisel Rendon on 02-04-2023 Hemoglobin (Bld) [Mass/Vol] 8.8 g/dL 13.0-16. 5 [facility] Blood lymphocytes/100 leukoc ytesOrdered By: Yisel Rendon on 02-04-2023 Lymphocytes/100 WBC (Bld) 17.2 % 19-41 [facility] Blood monocytes/100 leukocyt esOrdered By: Yisel Rendon on 02-04-2023 Monocytes/100 WBC (Bld) 6.3 % 0-10 [facility] Blood platelet mean volumeOr dered By: Yisel Rendon on 02-04-2023 Platelet mean volume (Bld) [Entitic vol] 8.8 fL 6.2-12.0 [facility] Determination of erythrocyte mean corpuscular volume (MCV)Ordered By: Yisel Rendon on 02-04-2023 MCV (RBC) [Entitic vol] 89.5 fL 80-94 [facility] Hematocrit Auto (Bld) [Volum e fraction]Ordered By: Yisel Rendon on 02-04-2023 Hematocrit (Bld) [Volume fraction] 28.9 % 40-54 [facility] MCHC Auto (RBC) [Mass/Vol]Or dered By: Yisel Rendon on 02-04-2023 MCHC (RBC) [Mass/Vol] 30.4 g/dL 32-36 [facility] No Panel InformationOrdered By: Yisel Rendon on 02-04-2023 27.2 pg 27.0-32.0 [facility] 17.8 % 11.6-14.6 [facility] 56.6 fl 35.1-43.9 [facility] 2.300 % 0.0-0.9 [facility] 0 % 0-5 [facility] 67 mL/min >60 [facility] 81 mL/min >60 [facility] 63.83 ml/min [facility] 10.6 RATIO 10-20 [facility] 25.0 mmol/L 21.0-32.0 [facility] Platelets bldOrdered By: José Luis Rendon on 02-04-2023 Platelets (Bld) [#/Vol] 341 10*3/uL 150-450 [facility] Serum or plasma calcium antoine urement (mass/volume)Ordered By: Yisel Rendon on 02-04-2023 Calcium [Mass/Vol] 8.4 mg/dL 8.5-10.1 [place] Serum or plasma creatinine m easurement (mass/volume)Ordered By: Yisel Rendon on 02-04-2023 Creatinine [Mass/Vol] 1.13 mg/dL 0.70-1.30 [facility] Serum or plasma urea nitroge n measurement (mass/volume)Ordered By: iYsel Rendon on 02-04-2023 Urea nitrogen [Mass/Vol] 12 mg/dL 7-18 [facility] Thin prep Papanicolaou smear with manual screeningOrdered By: Yisel Rendon on 02-04-2023 Thin prep Papanicolaou smear with manual screening 6 5-15 [facility] Blood band neutrophil count as percentage of total leukocytesOrdered By: Yisel Rendon on 01-31-2023 Band form neutrophils/100 WBC (Bld) 3 % 0-5 [facility] Blood eosinophils/100 leukoc ytesOrdered By: Yisel Rendon on 01-31-2023 Eosinophils/100 WBC (Bld) 2 % 0-5 [facility] Blood lymphocytes/100 leukoc ytesOrdered By: Yisel Rendon on 01-31-2023 Lymphocytes/100 WBC (Bld) 22 % 19-41 [facility] Blood metamyelocytes/100 yolis kocytesOrdered By: Yisel Rendon on 01-31-2023 Metamyelocytes/100 WBC (Bld) 1 % 0-1 [facility] Blood monocytes/100 leukocyt esOrdered By: Yisel Rendon on 01-31-2023 Monocytes/100 WBC (Bld) 5 % 0-10 [facility] Blood platelet adequacy dete ction by light microscopyOrdered By: Yisel Rendon on 01-31-2023 Platelets LM Ql (Bld) ADEQUATE ADEQ [facility] Blood polychromasia detectio n by light microscopyOrdered By: Yisel Rendon on 01-31-2023 Polychromasia LM Ql (Bld) RARE [facility] Blood segmented neutrophils/ 100 leukocytesOrdered By: Yisel Rendon on 01-31-2023 Segmented neutrophils/100 WBC (Bld) 64 % 47-70 [facility] No Panel InformationOrdered By: Yisel Rendon on 01-31-2023 3 % 0-0 [facility] Review by pathologistOrdered By: Yisel Rendon on 01-31-2023 Pathologist review Ori (Unsp spec) [Interp] Reviewed [facility] Total cell countOrdered By: Yisel Rendon on 01-31-2023 Cells counted Molgen (Bld/Tiss) [#] 100 MANUAL DIFF [facility] Basophil percentageOrdered B y: Yisel Rendon on 01-30-2023 Basophil percentage 148 U/L 87-241 [facility] Blood manual differential co mment interpretation (narrative result)Ordered By: Yisel Rendon on 01-30-2023 Manual differential comment Ori (Bld) [Interp] SCANNED [facility] Hemoglobin in reticulocytes (mass per reticulocyte)Ordered By: Yisel Rendon on 01-30-2023 Hemoglobin (Reticulocytes) [Entitic mass] 22.8 pg 30-35 [facility] Hypochromatic red blood cell detectionOrdered By: Yisel Rendon on 01-30-2023 Hypochromia Ql (Bld) 1+ [facility] Iron measurement (mass/mass) Ordered By: Yisel Rendon on 01-30-2023 Iron (Unsp spec) [Mass/Mass] 28 ug/dL 65-175 [facility] No Panel InformationOrdered By: Yisel Rendon on 01-30-2023 RARE % [facility] 3.53 % 0.5-1.5 [facility] 40.30 % 3.00-15.90 [facility] 635 pg/mL 211-911 [facility] 166 ug/dL 250-450 [facility] Serum or plasma ferritin hank surement (mass/volume)Ordered By: Yisel Rendon on 01-30-2023 Ferritin [Mass/Vol] 138 ng/mL 26-388 [facility] Serum or plasma folate measu rement (mass/volume)Ordered By: Yisel Rendon on 01-30-2023 Folate [Mass/Vol] 4.60 ng/mL 3.1-55.4 [facility] Serum or plasma iron saturat ion measurement (mass fraction)Ordered By: Yisel Rendon on 01-30-2023 Iron saturation [Mass fraction] 16.9 % 15.0-55.0 [facility] No Panel InformationOrdered By: Yisel Rendon on 01-29-2023 RARE [facility] Vancomycin troughOrdered By: Karen Jermain on 01-29-2023 Vancomycin trough [Mass/Vol] 7.8 ug/mL 5.0-15.0 [facility] Basophil percentageOrdered B y: Karen Aly on 01-28-2023 Basophil percentage 5.8 g/dL 6.4-8.2 [facility] Basophil percentage 0.70 mg/dL 0.20-1.00 [facility] No Panel InformationOrdered By: Karen Aly on 01-28-2023 3.8 g/dL 2.2-4.2 [facility] 81 U/L 45-117 [facility] 85 U/L 16-61 [facility] Serum or plasma albumin antoine urement (mass/volume)Ordered By: Karen Aly on 01-28-2023 Albumin [Mass/Vol] 2.0 g/dL 3.2-5.0 [place] Serum or plasma albumin/glob ulin mass ratioOrdered By: [facility] Jermain on 01-28-2023 Albumin/Globulin [Mass ratio] 0.5 {ratio} 0.9-2.4 [facility] Thin prep Papanicolaou smear with manual screeningOrdered By: Karen Jermain on 01-28-2023 Thin prep Papanicolaou smear with manual screening 49 U/L 15-37 [facility] Absolute lymphocyte countOrd ered By: Syed Allen on 01-27-2023 Lymphocytes Auto (Unsp spec) [#/Vol] 1.35 10*3/uL 0.83-4.51 [facility] Basophil percentageOrdered B y: Karen Aly on 01-27-2023 Basophil percentage 2.6 mg/dL 2.5-4.9 [facility] Basophil percentageOrdered B y: Syed Allen on 01-27-2023 Basophils/100 WBC (Bld) 0.1 % 0-1 [facility] Bilirubin [Mass/Vol] 0.50 mg/dL 0.20-1.00 [facility] Comment on above: For patients on eltr ombopag therapy, use of Dimension [place]ue TBIL is not recommended. Chloride [Moles/Vol] 111 mmol/L 98-107 [facility] Eosinophils/100 WBC (Bld) 2.9 % 0-5 [facility] Glucose [Mass/Vol] 215 mg/dL 74-106 [place] Comment on above: Glucose result great er than or equal to 200 mg/dLsuggests DIABETES MELLITUS per A.D.A. criteria. Neutrophils (Bld) [#/Vol] 8.0 10*3/uL 2.0-7.7 [facility] Neutrophils/100 WBC (Bld) 73.8 % 47-70 [facility] Potassium [Moles/Vol] 4.0 mmol/L 3.5-5.1 [facility] Protein [Mass/Vol] 5.3 g/dL 6.4-8.2 [place] Sodium [Moles/Vol] 140 mmol/L 136-145 [place] WBC (Bld) [#/Vol] 10.9 10*3/uL 4.4-11.0 [facility] Blood erythrocytes count (nu mber/volume)Ordered By: Syed Allen on 01-27-2023 RBC (Bld) [#/Vol] 2.91 10*6/uL 4.6-6.2 [facility] Blood hemoglobin measurement (mass/volume)Ordered By: Syed Allen on 01-27-2023 Hemoglobin (Bld) [Mass/Vol] 8.2 g/dL 13.0-16. 5 [facility] Blood lymphocytes/100 leukoc ytesOrdered By: Syed Allen on 01-27-2023 Lymphocytes/100 WBC (Bld) 12.4 % 19-41 [facility] Blood monocytes/100 leukocyt esOrdered By: Syed Allen on 01-27-2023 Monocytes/100 WBC (Bld) 8.2 % 0-10 [facility] Blood platelet mean volumeOr dered By: Syed Allen on 01-27-2023 Platelet mean volume (Bld) [Entitic vol] 9.9 fL 6.2-12.0 [facility] Determination of erythrocyte mean corpuscular volume (MCV)Ordered By: Syed Allen on 01-27-2023 MCV (RBC) [Entitic vol] 88.0 fL 80-94 [facility] Hematocrit Auto (Bld) [Volum e fraction]Ordered By: Syed Allen on 01-27-2023 Hematocrit (Bld) [Volume fraction] 25.6 % 40-54 [facility] INR in Blood by Coagulation assayOrdered By: Syed Allen on 01-27-2023 INR Coag (Bld) [Relative time] 1.6 {INR} [facility] - Chemistry and C hemistry - challengeOrdered By: Syed Allen on 01-27-2023 ALP [Catalytic activity/Vol] 78 U/L 45-117 [facility] ALT [Catalytic activity/Vol] 81 U/L 16-61 [facility] CO2 [Moles/Vol] 25.0 mmol/L 21.0-32.0 [facility] Globulin (S) [Mass/Vol] 3.5 g/dL 2.2-4.2 [facility] Lipase [Catalytic activity/Vol] 233 U/L 13-75 [facility] Comment on above: Please note:LIPASE r evised reference range effective 22. New Lipase methodology. Expected to produce lower values than the previous assay method. NEW Reference Range: 13 - 75 U/L Urea nitrogen/Creatinine [Mass ratio] 20.4 mg/mg 10-20 [facility] - CoagulationOrde red By: Syed Allen on 01-27-2023 PT Coag (PPP) [Time] 19.4 s 11.7-14.9 [facility] - Hematology and Cell countsOrdered By: Syed Allen on 01-27-2023 Erythrocyte distribution width (RBC) [Entitic vol] 49.3 fL 35.1-43.9 [place] Erythrocyte distribution width (RBC) [Ratio] 15.5 % 11.6-14.6 [facility] Immature granulocytes/100 WBC (Bld) 2.600 % 0.0-0.9 [facility] Comment on above: IG% - Immature Granu locytes (promyelocytes, myelocytes and metamyelocytes) > 1% indicates that a LEFT SHIFT is Present. MCH (RBC) [Entitic mass] 28.2 pg 27.0-32.0 [facility] Nucleated RBC/100 WBC (Bld) [Ratio] 0.2 % 0-5 [facility] MCHC Auto (RBC) [Mass/Vol]Or dered By: Syed Allen on 01-27-2023 MCHC (RBC) [Mass/Vol] 32.0 g/dL 32-36 [facility] No Panel InformationOrdered By: Karen White on 01-27-2023 Negative Negative [facility] 1.7 mg/dL 1.6-2.6 [facility] No Panel InformationOrdered By: Syed Allen on 01-27-2023 Estimated Creatinine Clearance Calc 50.80 ml/min [facility] Estimated GFR (MDRD) Amer 63 mL/min >60 [facility] Comment on above: GFR Calc Estimated GFR (MDRD) Non-Af Amer 52 mL/min >60 [facility] Comment on above: Non- GFR Calc 19.4 SECONDS 11.7-14.9 [facility] 233 U/L 13-75 [facility] Platelets bldOrdered By: Glenroy Allen on 01-27-2023 Platelets (Bld) [#/Vol] 259 10*3/uL 150-450 [facility] Serum or plasma albumin antoine urement (mass/volume)Ordered By: Syed Allen on 01-27-2023 Albumin [Mass/Vol] 1.8 g/dL 3.2-5.0 [place] Serum or plasma albumin/glob ulin mass ratioOrdered By: Syed Allen on 01-27-2023 Albumin/Globulin [Mass ratio] 0.5 {ratio} 0.9-2.4 [facility] Serum or plasma calcium antoine urement (mass/volume)Ordered By: Syed Allen on 01-27-2023 Calcium [Mass/Vol] 8.3 mg/dL 8.5-10.1 [place] Serum or plasma creatinine m easurement (mass/volume)Ordered By: Syed Allen on 01-27-2023 Creatinine [Mass/Vol] 1.42 mg/dL 0.70-1.30 [facility] Comment on above: The validity of the calculated GFR & GFRAA in patients over 70 years has not been determined. Clinical correlation is essential. Serum or plasma urea nitroge n measurement (mass/volume)Ordered By: Syed Allen on 01-27-2023 Urea nitrogen [Mass/Vol] 29 mg/dL 7-18 [facility] Serum procalcitonin measurem entOrdered By: Karen Aly on 01-27-2023 Procalcitonin [Mass/Vol] 0.12 ng/mL 0.00-0.09 [facility] Thin prep Papanicolaou smear with manual screeningOrdered By: Syed Allen on 01-27-2023 Thin prep Papanicolaou smear with manual screening 68 U/L 15-37 [facility] Thin prep Papanicolaou smear with manual screening 4 5-15 [facility] Urine Legionella pneumophila antigen detectionOrdered By: Karen Aly on 01-27-2023 L. pneumophila Ag Ql (U) [facility] Absolute lymphocyte countOrd ered By: Ryan Tinoco on 01-26-2023 Lymphocytes Auto (Unsp spec) [#/Vol] 0.69 10*3/uL 0.83-4.51 [facility] Basophil percentageOrdered B y: Karen Aly on 01-26-2023 Basophil percentage 2.4 mg/dL 2.5-4.9 [facility] Basophil percentageOrdered B y: Ryan Tinoco on 01-26-2023 Basophil percentage 235 mg/dL 74-106 [facility] Basophil percentage 143 mmol/L 136-145 [facility] Basophil percentage 3.8 mmol/L 3.5-5.1 [facility] Basophil percentage 114 mmol/L 98-107 [facility] Basophils (Bld) [#/Vol] 8.5 10*3/uL 4.4-11.0 [facility] Basophils (Bld) [#/Vol] 6.7 10*3/uL 2.0-7.7 [facility] Basophils/100 WBC (Bld) 0.1 % 0-1 [facility] Basophils/100 WBC (Bld) 78.4 % 47-70 [facility] Basophils/100 WBC (Bld) 1.6 % 0-5 [facility] Chloride [Moles/Vol] 114 mmol/L 98-107 [facility] Eosinophils/100 WBC (Bld) 1.6 % 0-5 [facility] Glucose [Mass/Vol] 235 mg/dL 74-106 [place] Comment on above: Glucose result great er than or equal to 200 mg/dLsuggests DIABETES MELLITUS per A.D.A. criteria. Neutrophils (Bld) [#/Vol] 6.7 10*3/uL 2.0-7.7 [facility] Neutrophils/100 WBC (Bld) 78.4 % 47-70 [facility] Potassium [Moles/Vol] 3.8 mmol/L 3.5-5.1 [facility] Sodium [Moles/Vol] 143 mmol/L 136-145 [place] WBC (Bld) [#/Vol] 8.5 10*3/uL 4.4-11.0 [place] Blood erythrocytes count (nu mber/volume)Ordered By: Ryan Tinoco on 01-26-2023 RBC (Bld) [#/Vol] 3.06 10*6/uL 4.6-6.2 [facility] Blood hemoglobin measurement (mass/volume)Ordered By: Ryan Tinoco on 01-26-2023 Hemoglobin (Bld) [Mass/Vol] 8.6 g/dL 13.0-16. 5 [facility] Blood lymphocytes/100 leukoc ytesOrdered By: Ryan Tinoco on 01-26-2023 Lymphocytes/100 WBC (Bld) 8.1 % 19-41 [facility] Blood monocytes/100 leukocyt esOrdered By: Ryan Tinoco on 01-26-2023 Monocytes/100 WBC (Bld) 9.6 % 0-10 [facility] Blood platelet mean volumeOr dered By: Ryan Tinoco on 01-26-2023 Platelet mean volume (Bld) [Entitic vol] 9.9 fL 6.2-12.0 [facility] COVID-19 virus antigen assay Ordered By: Ryan Tinoco on 01-26-2023 SARS-CoV-2 (COVID-19) Ag IA.rapid Ql (Resp) [facility] SARS-CoV-2 (COVID-19) Ag IA.rapid Ql (Resp) [facility] Determination of erythrocyte mean corpuscular volume (MCV)Ordered By: Ryan Tinoco on 01-26-2023 MCV (RBC) [Entitic vol] 88.6 fL 80-94 [facility] Glucose Glucometer (BldC) [M ass/Vol]Ordered By: Ryan Tinoco on 01-26-2023 Glucose [Mass/Vol] 230 mg/dL 74-106 [place] Comment on above: MANAGEMENT OF PATIEN T CARE PER NURSING PROTOCOL Hematocrit Auto (Bld) [Volum e fraction]Ordered By: Ryan Tinoco on 01-26-2023 Hematocrit (Bld) [Volume fraction] 27.1 % 40-54 [facility] - Chemistry and C hemistry - challengeOrdered By: Ryan Tinoco on 01-26-2023 CO2 [Moles/Vol] 23.0 mmol/L 21.0-32.0 [facility] Urea nitrogen/Creatinine [Mass ratio] 18.8 mg/mg 10-20 [facility] - Chemistry and C hemistry - challengeOrdered By: Karen Aly on 01-26-2023 Magnesium [Mass/Vol] 1.8 mg/dL 1.6-2.6 [facility] - Hematology and Cell countsOrdered By: Ryan Tinoco on 01-26-2023 Erythrocyte distribution width (RBC) [Entitic vol] 50.6 fL 35.1-43.9 [place] Erythrocyte distribution width (RBC) [Ratio] 15.9 % 11.6-14.6 [facility] Immature granulocytes/100 WBC (Bld) 2.200 % 0.0-0.9 [facility] Comment on above: IG% - Immature Granu locytes (promyelocytes, myelocytes and metamyelocytes) > 1% indicates that a LEFT SHIFT is Present. MCH (RBC) [Entitic mass] 28.1 pg 27.0-32.0 [facility] Nucleated RBC/100 WBC (Bld) [Ratio] 0.5 % 0-5 [facility] MCHC Auto (RBC) [Mass/Vol]Or dered By: Ryan Tinoco on 01-26-2023 MCHC (RBC) [Mass/Vol] 31.7 g/dL 32-36 [facility] No Panel InformationOrdered By: Ryan Tinoco on 01-26-2023 Estimated Creatinine Clearance Calc 48.41 ml/min [facility] Estimated GFR (MDRD) Amer 59 mL/min >60 [facility] Comment on above: GFR Calc Estimated GFR (MDRD) Non-Af Amer 49 mL/min >60 [facility] Comment on above: Non- GFR Calc 28.1 pg 27.0-32.0 [facility] 15.9 % 11.6-14.6 [facility] 50.6 fl 35.1-43.9 [facility] 2.200 % 0.0-0.9 [facility] 0.5 % 0-5 [facility] 49 mL/min >60 [facility] 59 mL/min >60 [facility] 48.41 ml/min [facility] 18.8 RATIO 10-20 [facility] 23.0 mmol/L 21.0-32.0 [facility] No Panel InformationOrdered By: Karen Aly on 01-26-2023 1.8 mg/dL 1.6-2.6 [facility] Platelets bldOrdered By: Jaziel Tinoco on 01-26-2023 Platelets (Bld) [#/Vol] 217 10*3/uL 150-450 [facility] Serum or plasma calcium antoine urement (mass/volume)Ordered By: Ryan Tinoco on 01-26-2023 Calcium [Mass/Vol] 8.5 mg/dL 8.5-10.1 [place] Serum or plasma creatinine m easurement (mass/volume)Ordered By: Ryan Tinoco on 01-26-2023 Creatinine [Mass/Vol] 1.49 mg/dL 0.70-1.30 [facility] Comment on above: The validity of the calculated GFR & GFRAA in patients over 70 years has not been determined. Clinical correlation is essential. Serum or plasma urea nitroge n measurement (mass/volume)Ordered By: Ryan Tinoco on 01-26-2023 Urea nitrogen [Mass/Vol] 28 mg/dL 01-29 [facility] Thin prep Papanicolaou smear with manual screeningOrdered By: yRan Tinoco on 01-26-2023 Thin prep Papanicolaou smear with manual screening 6 - [facility] INR in Blood by Coagulation assayOrdered By: Ryan Tinoco on 01-25-2023 INR Coag (Bld) [Relative time] 1.6 {INR} [facility] - CoagulationOrde red By: Ryan Tinoco on 01-25-2023 PT Coag (PPP) [Time] 19.1 s 11.7-14.9 [facility] No Panel InformationOrdered By: Ryan Tinoco on 01-25-2023 19.1 SECONDS 11.7-14.9 [facility] Albumin Elph [Mass/Vol]Order ed By: Liu Hackett on 01-22-2023 Albumin [Mass/Vol] 2.5 g/dL 2.9-4.4 [place] Aldolase ser/plasOrdered By: Liu Hackett on 01-22-2023 Aldolase [Catalytic activity/Vol] 1.5 mU/mL 3.3-10.3 [facility] Comment on above: Performed at: [address] [id number] Director: Ernie Jacob PhD, Phone: [phone] at: [facility] [id number] Director: Lindsay Kearns MD, Phone: [phone] Atypical perinuclear antineu trophil cytoplasmic antibodies measurementOrdered By: Liu Hackett on 01-22-2023 Neutrophil cytoplasmic Ab.perinuclear.atypical IF (S) [Titer] <1:20 titer Neg:<1:20 [facility] Comment on above: The atypical pANCA p attern has been observed in asignificant percentage of patients with ulcerative colitis,primary sclerosing cholangitis and autoimmune hepatitis. Basophil percentageOrdered B y: Liu Hackett on 01-22-2023 Basophil percentage < 0.2 AI 0.0-0.9 [facility] Basophil percentage 3.4 mmol/L 0.4-2.0 [facility] Basophil percentage 136 U/L 87-241 [facility] Lactate [Moles/Vol] 3.4 mmol/L 0.4-2.0 [facility] Comment on above: Critical Result(s) C alled at: 12:30:42 01/22/2023 by: Aruna Morales. To Dagoberto Martin RN (ICU). Results read back by same. LDH [Catalytic activity/Vol] 136 U/L 87-241 [facility] Blood polychromasia detectio n by light microscopyOrdered By: Jesus Burnham on 01-22-2023 Polychromasia LM Ql (Bld) 1+ [facility] Interpretation of serum or p lasma protein pattern by immunofixation (narrative resultOrdered By: Liu Hackett on 01-22-2023 Protein Fractions Immunofixation Ori [Interp] See comment [facility] Comment on above: NOT OBSERVED Laboratory - Chemistry and C hemistry - challengeOrdered By: Liu Hackett on 01-22-2023 CK [Catalytic activity/Vol] 31 U/L 39-308 [facility] Laboratory - Hematology and Cell countsOrdered By: Jesus Burnham on 01-22-2023 Anisocytosis Ql (Bld) 1+ [facility] No Panel InformationOrdered By: Liu Hackett on 01-22-2023 Addendum Document Comment . [facility] Comment on above: Protein electrophore sis scan will follow via computer,mail, or metal cut off saw operator delivery. [facility] B Antibody <0.2 AI 0.0-0.9 [facility] Immunoglobulin E 399 IU/mL 6-495 [facility] Immunoglobulin G4 8 mg/dL 2-96 [facility] TERMINAL MANAGER Antibody <0.2 AI 0.0-0.9 [facility] 31 U/L 39-308 [facility] 8 mg/dL 2-96 [facility] 399 IU/mL 6-495 [facility] <0.2 AI 0.0-0.9 [facility] No Panel InformationOrdered By: Jesus Burnham on 01-22-2023 1+ [facility] Review by pathologistOrdered By: Jesus Burnham on 01-22-2023 Pathologist review Ori (Unsp spec) [Interp] Reviewed [facility] Comment on above: Previous reported re sult: Corie sr Edited by: KEN on 01/23/23:1008Neutrophilic leukocytosis with left shift.Normocytic anemia.Clinical correlation necessary.Evaristo Dela Cruz M.D. 01/23/23 AMENDED REPORT 01/23/23 1008 PATH REV previously reported as: November orin Serum DNA double strand anti body assay (units/volume)Ordered By: Liu Hackett on 01-22-2023 DNA double strand Ab Qn (S) [IU]/mL 0-9 [facility] Comment on above: Negative <5 Equivoca l 5 - 9 Positive >9 Serum IgG subclass 1 measure ment (mass/volume)Ordered By: Liu Hackett on 01-22-2023 IgG subclass 1 (S) [Mass/Vol] 237 mg/dL 248-810 [facility] Serum IgG subclass 2 measure ment (mass/volume)Ordered By: Liu Hackett on 01-22-2023 IgG subclass 2 (S) [Mass/Vol] 115 mg/dL 130-555 [facility] Serum IgG subclass 3 measure ment (mass/volume)Ordered By: Liu Hackett on 01-22-2023 IgG subclass 3 (S) [Mass/Vol] 20 mg/dL 15-102 [facility] Serum Kelsey-1 antibody assay (u nits/volume)Ordered By: Liu Hackett on 01-22-2023 Kelsey-1 extractable nuclear Ab Qn (S) <0.2 AI 0.0-0.9 [facility] Serum Scl-70 extractable nuc lear antibody assay (units/volume)Ordered By: Liu Hackett on 01-22-2023 SCL-70 extractable nuclear Ab Qn (S) <0.2 AI 0.0-0.9 [facility] Serum Martinez extractable nucl ear antibody detectionOrdered By: Liu Hackett on 01-22-2023 Martinez extractable nuclear Ab Ql (S) <0.2 AI 0.0-0.9 [facility] Serum [id number] measu rement by electrophoresisOrdered By: Liu Hackett on 01-22-2023 Alpha 1 globulin Elph [Mass/Vol] 0.2 g/dL 0.0-0.4 [facility] Alpha 1 globulin Elph [Mass/Vol] 0.6 g/dL 0.4-1.0 [facility] Serum classic neutrophil cyt oplasmic antibody assay (units/volume)Ordered By: Liu Hackett on 01-22-2023 Neutrophil cytoplasmic Ab.classic Qn (S) <1:20 titer Neg:<1:20 [facility] Serum globulin measurement ( mass/volume)Ordered By: Liu Hackett on 01-22-2023 Globulin (S) [Mass/Vol] 1.9 g/dL 2.2-3.9 [facility] Serum or plasma IgA measurem ent (mass/volume)Ordered By: Liu Hackett on 01-22-2023 IgA [Mass/Vol] 194 mg/dL 61-437 [facility] Serum or plasma IgG measurem ent (mass/volume)Ordered By: Liu Hackett on 01-22-2023 IgG [Mass/Vol] 417 mg/dL 603-1613 [facility] IgG [Mass/Vol] Not Reportable [place] Serum or plasma IgM measurem ent (mass/volume)Ordered By: Liu Hackett on 01-22-2023 IgM [Mass/Vol] 15 mg/dL 15-143 [facility] Comment on above: Result confirmed on concentration. Serum or plasma beta globuli n measurement by electrophoresis (mass/volume)Ordered By: Liu Hackett on 01-22-2023 Beta globulin Elph [Mass/Vol] 0.7 g/dL 0.7-1.3 [facility] Serum or plasma gamma globul in measurement by electrophoresis (mass/volume)Ordered By: Liu Hackett on 01-22-2023 Gamma globulin Elph [Mass/Vol] 0.3 g/dL 0.4-1.8 [facility] Serum or plasma immunoelectr ophoresis interpretation (nominal result)Ordered By: Liu Hackett on 01-22-2023 Interpretation IEP [Interp] Comment . [facility] Comment on above: No monoclonality det ected. Serum perinuclear neutrophil cytoplasmic antibody titer by immunofluorescenceOrdered By: Liu Hackett on 01-22-2023 Neutrophil cytoplasmic Ab.perinuclear IF (S) [Titer] <1:20 titer Neg:<1:20 [facility] Comment on above: The presence of [...] only by EIA. Ref. AM J Clin [id number];111:507-513. Thin prep Papanicolaou smear with manual screeningOrdered By: Liu Hackett on 01-22-2023 Thin prep Papanicolaou smear with manual screening 1.4 0.7-1.7 [facility] Total protein bloodOrdered B y: Liu Roxann on 01-22-2023 Protein [Mass/Vol] 4.4 g/dL 6.0-8.5 [place] Absolute lymphocyte countOrd ered By: Dandy Sauer on 01-21-2023 Lymphocytes Auto (Unsp spec) [#/Vol] 1.69 10*3/uL 0.83-4.51 [facility] Basophil percentageOrdered B y: Dandypau Sauer on 01-21-2023 Basophil percentage 0-5 SEEN /hpf 0-5 [facility] Basophil percentage 5.4 g/dL 6.4-8.2 [facility] Basophil percentage 0.30 mg/dL 0.20-1.00 [facility] Basophils/100 WBC (Bld) 0.3 % 0-1 [facility] Bilirubin [Mass/Vol] 0.30 mg/dL 0.20-1.00 [facility] Comment on above: For patients on eltr ombopag therapy, use of Dimension Larue TBIL is not recommended. Chloride [Moles/Vol] 109 mmol/L 98-107 [facility] Eosinophils/100 WBC (Bld) 0.0 % 0-5 [facility] Glucose [Mass/Vol] 248 mg/dL 74-106 [place] Comment on above: Glucose result great er than or equal to 200 mg/dLsuggests DIABETES MELLITUS per A.D.A. criteria. Lactate [Moles/Vol] 7.9 mmol/L 0.4-2.0 [facility] Comment on above: Critical Result(s) C alled at: 09:48:37 01/21/2023 by: Aruna Morales to Shwetha. Results read back by same. Neutrophils (Bld) [#/Vol] 19.7 10*3/uL 2.0-7.7 [facility] Neutrophils/100 WBC (Bld) 87.8 % 47-70 [facility] Potassium [Moles/Vol] 5.2 mmol/L 3.5-5.1 [facility] Protein [Mass/Vol] 5.4 g/dL 6.4-8.2 [place] Sodium [Moles/Vol] 138 mmol/L 136-145 [place] WBC (Bld) [#/Vol] 22.4 10*3/uL 4.4-11.0 [facility] Bilirubin Test strip Ql (U)O rdered By: Dandy Sauer on 01-21-2023 Bilirubin Ql (U) 1 mg/dL Negative [facility] Comment on above: COLOR OF URINE MAY A FFECT DIPSTICK RESULTS. Blood erythrocytes count (nu mber/volume)Ordered By: Dandy Sauer on 01-21-2023 RBC (Bld) [#/Vol] 3.96 10*6/uL 4.6-6.2 [facility] Blood hemoglobin measurement (mass/volume)Ordered By: Dandy Sauer on 01-21-2023 Hemoglobin (Bld) [Mass/Vol] 10.7 g/dL 13.0-16. 5 [facility] Blood lymphocytes/100 leukoc ytesOrdered By: Dandy Sauer on 01-21-2023 Lymphocytes/100 WBC (Bld) 7.5 % 19-41 [facility] Blood monocytes/100 leukocyt esOrdered By: Dandy Sauer on 01-21-2023 Monocytes/100 WBC (Bld) 2.4 % 0-10 [facility] Blood platelet mean volumeOr dered By: Dandy Sauer on 01-21-2023 Platelet mean volume (Bld) [Entitic vol] 10.7 fL 6.2-12.0 [facility] Determination of erythrocyte mean corpuscular volume (MCV)Ordered By: Dandy Sauer on 01-21-2023 MCV (RBC) [Entitic vol] 86.6 fL 80-94 [facility] Hematocrit Auto (Bld) [Volum e fraction]Ordered By: Dandy Sauer on 01-21-2023 Hematocrit (Bld) [Volume fraction] 34.3 % 40-54 [facility] INR in Blood by Coagulation assayOrdered By: Dandy Sauer on 01-21-2023 INR Coag (Bld) [Relative time] 4.2 {INR} [facility] Comment on above: CRITICAL VALUE VERIF IED. CALLED TO EVANS MARI (ER)01/21/23 1011 Zachary Gabriel.RESULTS READ BACK BY SAME. Ketones Test strip Ql (U)Ord ered By: Dandy Sauer on 01-21-2023 Ketones Ql (U) 15 mg/dl Negative [facility] Laboratory - Chemistry and C hemistry - challengeOrdered By: Dandy Sauer on 01-21-2023 ALP [Catalytic activity/Vol] 76 U/L 45-117 [facility] ALT [Catalytic activity/Vol] 25 U/L 16-61 [facility] CO2 [Moles/Vol] 12.0 mmol/L 21.0-32.0 [facility] Globulin (S) [Mass/Vol] 2.7 g/dL 2.2-4.2 [facility] Urea nitrogen/Creatinine [Mass ratio] 62.8 mg/mg 10-20 [facility] Laboratory - CoagulationOrde red By: Dandy Sauer on 01-21-2023 PT Coag (PPP) [Time] 41.4 s 11.7-14.9 [facility] Laboratory - Hematology and Cell countsOrdered By: Dandy Sauer on 01-21-2023 Erythrocyte distribution width (RBC) [Entitic vol] 46.6 fL 35.1-43.9 [place] Erythrocyte distribution width (RBC) [Ratio] 14.7 % 11.6-14.6 [facility] Immature granulocytes/100 WBC (Bld) 2.000 % 0.0-0.9 [facility] Comment on above: IG% - Immature Granu locytes (promyelocytes, myelocytes and metamyelocytes) > 1% indicates that a LEFT SHIFT is Present. MCH (RBC) [Entitic mass] 27.0 pg 27.0-32.0 [facility] Nucleated RBC/100 WBC (Bld) [Ratio] 0 % 0-5 [facility] Lower GI hemoglobin IA Ql (S tl)Ordered By: Dandy Sauer on 01-21-2023 Stool gastrointestinal hemoglobin detection by immunologic method Positive [facility] Stool Occult Blood (KLAUS) Positive [facility] Stool gastrointestinal hemoglobin detection by immunologic method Positive [facility] MCHC Auto (RBC) [Mass/Vol]Or dered By: Dandy Sauer on 01-21-2023 MCHC (RBC) [Mass/Vol] 31.2 g/dL 32-36 [facility] Mucus LM Ql (Urine sed)Order ed By: Dandy Sauer on 01-21-2023 Mucus Ql (Urine sed) 0 SEEN /hpf [facility] Nitrite Test strip Ql (U)Ord ered By: Dandy Sauer on 01-21-2023 Nitrite Ql (U) Negative Negative [facility] No Panel InformationOrdered By: Dandy Sauer on 01-21-2023 Estimated Creatinine Clearance Calc 36.25 ml/min [facility] Estimated GFR (MDRD) Amer 42 mL/min >60 [facility] Comment on above: GFR Calc Estimated GFR (MDRD) Non-Af Amer 35 mL/min >60 [facility] Comment on above: Non- GFR Calc Troponin I High Sensitivity 23 pg/mL 3.0-78.0 [facility] Comment on above: Please Note: New Thania t Units and Gender Specific Reference Ranges. For more information see Policy Stat Procedure [place]ue High Sensitivity Troponin (TNIH) and attachments. 23 pg/mL 3.0-78.0 [facility] 76 U/L 45-117 [facility] 25 U/L 16-61 [facility] Platelets bldOrdered By: Renetta Sauer on 01-21-2023 Platelets (Bld) [#/Vol] 389 10*3/uL 150-450 [facility] Protein Test strip Ql (U)Ord ered By: Dandy Sauer on 01-21-2023 Protein Ql (U) 15 mg/dl Negative [facility] Serum or plasma albumin antoine urement (mass/volume)Ordered By: Dandy Sauer on 01-21-2023 Albumin [Mass/Vol] 2.7 g/dL 3.2-5.0 [place] Serum or plasma albumin/glob ulin mass ratioOrdered By: Dandy Sauer on 01-21-2023 Albumin/Globulin [Mass ratio] 1.0 {ratio} 0.9-2.4 [facility] Serum or plasma calcium antoine urement (mass/volume)Ordered By: Dandy Sauer on 01-21-2023 Calcium [Mass/Vol] 9.7 mg/dL 8.5-10.1 [place] Serum or plasma creatinine m easurement (mass/volume)Ordered By: Dandy Sauer on 01-21-2023 Creatinine [Mass/Vol] 1.99 mg/dL 0.70-1.30 [facility] Comment on above: The validity of the calculated GFR & GFRAA in patients over 70 years has not been determined. Clinical correlation is essential. Serum or plasma urea nitroge n measurement (mass/volume)Ordered By: Dandy Sauer on 01-21-2023 Urea nitrogen [Mass/Vol] 125 mg/dL 7-18 [facility] Comment on above: Critical Result(s) C alled at: 09:53:00 01/21/2023 by: Aruna Tadeo. Results read back by same. Squamous epithelial cells de tection in urine sediment by light microscopyOrdered By: Dandy Sauer on 01-21-2023 Epithelial cells.squamous LM Ql (Urine sed) 0-5 SEEN /hpf 0-5 [facility] Thin prep Papanicolaou smear with manual screeningOrdered By: Dandy Sauer on 01-21-2023 Thin prep Papanicolaou smear with manual screening 9 U/L 15-37 [facility] Thin prep Papanicolaou smear with manual screening 17 5-15 [facility] Urine blood detectionOrdered By: Dandy Sauer on 01-21-2023 RBC Ql (U) Negative Negative [facility] RBC Ql (U) 0 SEEN /hpf 0-5 [facility] Urine clarityOrdered By: Renetta Sauer on 01-21-2023 Clarity (U) Clear Clear [facility] Urine color determinationOrd ered By: Dandy Sauer on 01-21-2023 Color (U) Yellow Yellow [facility] Urine glucose detectionOrder ed By: Dandy Sauer on 01-21-2023 Glucose Ql (U) 100 mg/dl Normal [facility] Urine leukocyte esterase det ection by dipstickOrdered By: Dandy Sauer on 01-21-2023 Leukocyte esterase Test strip Ql (U) Negative Negative [facility] Urine pHOrdered By: Dandy Sauer on 01-21-2023 pH (U) 5.0 [pH] 5.0 - 8.0 [facility] Urine sediment bacteria coun t by microscopy (number/high power field)Ordered By: Dandy Sauer on 01-21-2023 Bacteria LM.HPF (Urine sed) [#/Area] 0 /[HPF] None Seen [facility] Urine specific gravity measu rementOrdered By: Dandy Sauer on 01-21-2023 Specific gravity (U) [Rel density] 1.020 1.002-1.03 0 [facility] Urobilinogen Auto test strip Ql (U)Ordered By: Dandy Sauer on 01-21-2023 Urobilinogen Ql (U) Normal mg/dl Normal [facility] Glucose Glucometer (BldC) [M ass/Vol]Ordered By: Gabriel Giraldo on 01-08-2023 Glucose [Mass/Vol] 201 mg/dL 74-106 [place] Comment on above: MANAGEMENT OF PATIEN T CARE PER NURSING PROTOCOL Absolute lymphocyte countOrd ered By: Karen Aly on 01-07-2023 Lymphocytes Auto (Unsp spec) [#/Vol] 1.83 10*3/uL 0.83-4.51 [facility] Basophil percentageOrdered B y: Karen Aly on 01-07-2023 Basophil percentage 121 mg/dL 74-106 [facility] Basophil percentage 6.0 g/dL 6.4-8.2 [facility] Basophil percentage 0.70 mg/dL 0.20-1.00 [facility] Basophil percentage 138 mmol/L 136-145 [facility] Basophil percentage 4.1 mmol/L 3.5-5.1 [facility] Basophil percentage 106 mmol/L 98-107 [facility] Basophils (Bld) [#/Vol] 9.3 10*3/uL 4.4-11.0 [facility] Basophils (Bld) [#/Vol] 6.4 10*3/uL 2.0-7.7 [facility] Basophils/100 WBC (Bld) 0.6 % 0-1 [facility] Basophils/100 WBC (Bld) 69.0 % 47-70 [facility] Basophils/100 WBC (Bld) 2.4 % 0-5 [facility] Bilirubin [Mass/Vol] 0.70 mg/dL 0.20-1.00 [facility] Comment on above: For patients on eltr ombopag therapy, use of Dimension Larue TBIL is not recommended. Chloride [Moles/Vol] 106 mmol/L 98-107 [facility] Eosinophils/100 WBC (Bld) 2.4 % 0-5 [facility] Glucose [Mass/Vol] 121 mg/dL 74-106 [place] Comment on above: Fasting Glucose resu lt from 100 to 125 mg/dL suggests IMPAIRED HOMEOSTASIS per A.D.A. criteria. Neutrophils (Bld) [#/Vol] 6.4 10*3/uL 2.0-7.7 [facility] Neutrophils/100 WBC (Bld) 69.0 % 47-70 [facility] Potassium [Moles/Vol] 4.1 mmol/L 3.5-5.1 [facility] Protein [Mass/Vol] 6.0 g/dL 6.4-8.2 [place] Sodium [Moles/Vol] 138 mmol/L 136-145 [place] WBC (Bld) [#/Vol] 9.3 10*3/uL 4.4-11.0 [place] Blood erythrocytes count (nu mber/volume)Ordered By: Karen Aly on 01-07-2023 RBC (Bld) [#/Vol] 4.90 10*6/uL 4.6-6.2 [facility] Blood hemoglobin measurement (mass/volume)Ordered By: Karen Aly on 01-07-2023 Hemoglobin (Bld) [Mass/Vol] 13.1 g/dL 13.0-16. 5 [facility] Blood lymphocytes/100 leukoc ytesOrdered By: Karen Aly on 01-07-2023 Lymphocytes/100 WBC (Bld) 19.8 % 19-41 [facility] Blood monocytes/100 leukocyt esOrdered By: Karen Aly on 01-07-2023 Monocytes/100 WBC (Bld) 7.2 % 0-10 [facility] Blood platelet mean volumeOr dered By: Karen Aly on 01-07-2023 Platelet mean volume (Bld) [Entitic vol] 9.1 fL 6.2-12.0 [facility] Determination of erythrocyte mean corpuscular volume (MCV)Ordered By: Karen Aly on 01-07-2023 MCV (RBC) [Entitic vol] 83.5 fL 80-94 [facility] Hematocrit Auto (Bld) [Volum e fraction]Ordered By: Karen Aly on 01-07-2023 Hematocrit (Bld) [Volume fraction] 40.9 % 40-54 [facility] INR in Blood by Coagulation assayOrdered By: Karen Aly on 01-07-2023 INR Coag (Bld) [Relative time] 2.2 {INR} [facility] Laboratory - Chemistry and C hemistry - challengeOrdered By: Karen Aly on 01-07-2023 ALP [Catalytic activity/Vol] 90 U/L 45-117 [facility] ALT [Catalytic activity/Vol] 18 U/L 16-61 [facility] CO2 [Moles/Vol] 24.0 mmol/L 21.0-32.0 [facility] Globulin (S) [Mass/Vol] 3.1 g/dL 2.2-4.2 [facility] Urea nitrogen/Creatinine [Mass ratio] 23.0 mg/mg 10-20 [facility] Laboratory - CoagulationOrde red By: Karen Aly on 01-07-2023 PT Coag (PPP) [Time] 24.8 s 11.7-14.9 [facility] - Hematology and Cell countsOrdered By: Karen Aly on 01-07-2023 Erythrocyte distribution width (RBC) [Entitic vol] 43.7 fL 35.1-43.9 [place] Erythrocyte distribution width (RBC) [Ratio] 14.5 % 11.6-14.6 [facility] Immature granulocytes/100 WBC (Bld) 1.000 % 0.0-0.9 [facility] Comment on above: IG% - Immature Granu locytes (promyelocytes, myelocytes and metamyelocytes) > 1% indicates that a LEFT SHIFT is Present. MCH (RBC) [Entitic mass] 26.7 pg 27.0-32.0 [facility] Nucleated RBC/100 WBC (Bld) [Ratio] 0 % 0-5 [facility] MCHC Auto (RBC) [Mass/Vol]Or dered By: Karen Aly on 01-07-2023 MCHC (RBC) [Mass/Vol] 32.0 g/dL 32-36 [facility] No Panel InformationOrdered By: Karen Aly on 01-07-2023 Estimated Creatinine Clearance Calc 63.83 ml/min [facility] Estimated GFR (MDRD) Amer 81 mL/min >60 [facility] Comment on above: GFR Calc Estimated GFR (MDRD) Non-Af Amer 67 mL/min >60 [facility] Comment on above: Non- GFR Calc 26.7 pg 27.0-32.0 [facility] 14.5 % 11.6-14.6 [facility] 43.7 fl 35.1-43.9 [facility] 1.000 % 0.0-0.9 [facility] 0 % 0-5 [facility] 24.8 SECONDS 11.7-14.9 [facility] 67 mL/min >60 [facility] 81 mL/min >60 [facility] 63.83 ml/min [facility] 23.0 RATIO 10-20 [facility] 3.1 g/dL 2.2-4.2 [facility] 90 U/L 45-117 [facility] 18 U/L 16-61 [facility] 24.0 mmol/L 21.0-32.0 [facility] Platelets bldOrdered By: Dede Aly on 01-07-2023 Platelets (Bld) [#/Vol] 216 10*3/uL 150-450 [facility] Serum or plasma albumin antoine urement (mass/volume)Ordered By: Karen Aly on 01-07-2023 Albumin [Mass/Vol] 2.9 g/dL 3.2-5.0 [place] Serum or plasma albumin/glob ulin mass ratioOrdered By: Karen Aly on 01-07-2023 Albumin/Globulin [Mass ratio] 0.9 {ratio} 0.9-2.4 [facility] Serum or plasma calcium antoine urement (mass/volume)Ordered By: Karen Aly on 01-07-2023 Calcium [Mass/Vol] 8.8 mg/dL 8.5-10.1 [place] Serum or plasma creatinine m easurement (mass/volume)Ordered By: Karen Aly on 01-07-2023 Creatinine [Mass/Vol] 1.13 mg/dL 0.70-1.30 [facility] Comment on above: The validity of the calculated GFR & GFRAA in patients over 70 years has not been determined. Clinical correlation is essential. Serum or plasma urea nitroge n measurement (mass/volume)Ordered By: Karen Aly on 01-07-2023 Urea nitrogen [Mass/Vol] 26 mg/dL 7-18 [facility] Thin prep Papanicolaou smear with manual screeningOrdered By: Karen Aly on 01-07-2023 Thin prep Papanicolaou smear with manual screening 13 U/L 15-37 [facility] Thin prep Papanicolaou smear with manual screening 8 5-15 [facility] Basophil percentageOrdered B y: Karen Aly on 01-05-2023 Basophil percentage 87 mg/dL <200 [facility] Basophil percentage 116 mg/dL <199 [facility] Cholesterol [Mass/Vol] 87 mg/dL <200 [facility] Comment on above: <200 mg/dL Desirable 200-240 mg/dL Borderline >240 mg/dL High Risk Triglyceride [Mass/Vol] 116 mg/dL <199 [facility] Comment on above: The drugs N-Acetylcy steine and Metamizole may falsely depress this assay.Serum Triglycerides Reference Interval Normal <150 mg/dL Borderline high 150 - 199 mg/dL High 200 - 499 mg/dL Very High > or = 500 mg/dL No Panel InformationOrdered By: Karen Aly on 01-05-2023 Thyroid Stimulating Hormone (TSH) 1.13 uIU/mL 0.358-3.74 [facility] 1.13 uIU/mL 0.358-3.74 [facility] Serum or plasma cholesterol in HDL measurement (mass/volume)Ordered By: Karen Aly on 01-05-2023 Cholesterol in HDL [Mass/Vol] 37 mg/dL >40 [facility] Comment on above: The drugs N-Acetylcy steine and Metamizole may falsely depress this assay. Reference Range HDL <40 mg/dL Low HDL Cholesterol HDL >or= 60 mg/dL High HDL Cholesterol Serum or plasma cholesterol in VLDL measurement (mass/volume)Ordered By: Karen Aly on 01-05-2023 Cholesterol in VLDL [Mass/Vol] 23 mg/dL 5-40 [facility] Serum or plasma low density lipoprotein (LDL) cholesterol measurement (mass/volume)Ordered By: Karen Aly on 01-05-2023 Cholesterol in LDL [Mass/Vol] 27 mg/dL 0-130 [facility] Whole blood hemoglobin A1c/t otal hemoglobin ratio (mass fraction)Ordered By: Karen Aly on 01-05-2023 HbA1c (Bld) [Mass fraction] 5.8 % 3.8-5.6 [facility] Comment on above: Normal < 5.7 % Predi abetic 5.7 - 6.4 % Diabetic >or= 6.5 % Please note range changes. Absolute lymphocyte countOrd ered By: Dr. Roberts on 01-04-2023 Lymphocytes Auto (Unsp spec) [#/Vol] 1.31 10*3/uL 0.83-4.51 [facility] Assessment of wrist artery p atency prior to arterial punctureOrdered By: Dr. Aly on 01-04-2023 Arterial patency Wrist artery --pre arterial puncture N/A [facility] Bacteria identified Cx Nom ( U)Ordered By: Maggy Roberts on 01-04-2023 Culture, urine Positive [facility] Base excessOrdered By: Dr. Freddy pettit on 01-04-2023 Base excess Calc (BldV) [Moles/Vol] 0 mmol/L -2-2 [facility] Basophil percentageOrdered B y: Dr. Aly on 01-04-2023 Basophil percentage 23.7 mmol/L - [facility] Basophils/100 WBC (Bld) 96 % 95-99 [facility] Ammonia (P) [Moles/Vol] 17.0 umol/L [facility] Basophil percentageOrdered B y: Karen Aly on 01-04-2023 Basophil percentage 17.0 umol/L [facility] Basophil percentageOrdered B y: Dr. Roberts on 01-04-2023 Basophil percentage 0 SEEN /hpf 0-5 [facility] Basophils/100 WBC (Bld) 0.4 % 0-1 [facility] Bilirubin [Mass/Vol] 0.70 mg/dL 0.20-1.00 [facility] Comment on above: For patients on eltr ombopag therapy, use of Dimension [place] TBIL is not recommended. Chloride [Moles/Vol] 105 mmol/L 98-107 [facility] Eosinophils/100 WBC (Bld) 1.7 % 0-5 [facility] Glucose [Mass/Vol] 133 mg/dL 74-106 [place] Comment on above: Fasting Glucose resu lt greater than or equal to 126 mg/dL suggests DIABETES MELLITUS per A.D.A. criteria. Neutrophils (Bld) [#/Vol] 8.0 10*3/uL 2.0-7.7 [facility] Neutrophils/100 WBC (Bld) 78.3 % 47-70 [facility] Potassium [Moles/Vol] 4.2 mmol/L 3.5-5.1 [facility] Protein [Mass/Vol] 6.3 g/dL 6.4-8.2 [place] Sodium [Moles/Vol] 139 mmol/L 136-145 [place] WBC (Bld) [#/Vol] 10.2 10*3/uL 4.4-11.0 [facility] Bilirubin Test strip Ql (U)O rdered By: Dr. Roberts on 01-04-2023 Bilirubin Ql (U) Negative Negative [facility] Blood erythrocytes count (nu mber/volume)Ordered By: Dr. Roberts on 01-04-2023 RBC (Bld) [#/Vol] 5.09 10*6/uL 4.6-6.2 [facility] Blood hemoglobin measurement (mass/volume)Ordered By: Dr. Roberts on 01-04-2023 Hemoglobin (Bld) [Mass/Vol] 13.5 g/dL 13.0-16. 5 [facility] Blood lymphocytes/100 leukoc ytesOrdered By: Dr. Roberts on 01-04-2023 Lymphocytes/100 WBC (Bld) 12.8 % 19-41 [facility] Blood monocytes/100 leukocyt esOrdered By: [address]. Roberts on 01-04-2023 Monocytes/100 WBC (Bld) 5.9 % 0-10 [facility] Blood platelet mean volumeOr dered By: Dr. Roberts on 01-04-2023 Platelet mean volume (Bld) [Entitic vol] 8.7 fL 6.2-12.0 [facility] CO2 (BldA) [Partial pressure ]Ordered By: Dr. Aly on 01-04-2023 CO2 (Bld) [Partial pressure] 33.9 mm[Hg] 35-45 [facility] Culture, urineOrdered By: Eddie Roberts on 01-04-2023 Bacteria identified Cx Nom (U) Positive [facility] Determination of erythrocyte mean corpuscular volume (MCV)Ordered By: Dr. Rboerts on 01-04-2023 MCV (RBC) [Entitic vol] 82.1 fL 80-94 [facility] Direct bilirubinOrdered By: Dr. Roberts on 01-04-2023 Bilirubin.direct [Mass/Vol] 0.20 mg/dL 0.00-0.3 0 [facility] Hematocrit Auto (Bld) [Volum e fraction]Ordered By: Dr. Roberts on 01-04-2023 Hematocrit (Bld) [Volume fraction] 41.8 % 40-54 [facility] INR in Blood by Coagulation assayOrdered By: Dr. Roberts on 01-04-2023 INR Coag (Bld) [Relative time] 3.1 {INR} [facility] Ketones Test strip Ql (U)Ord ered By: Dr. Roberts on 01-04-2023 Ketones Ql (U) Negative Negative [facility] Laboratory - Chemistry and C hemistry - challengeOrdered By: Karen Aly on 01-04-2023 Cobalamin (Vitamin B12) [Mass/Vol] 260 pg/mL 211-911 [facility] Laboratory - Chemistry and C hemistry - challengeOrdered By: Dr. Aly on 01-04-2023 Magnesium [Mass/Vol] 1.8 mg/dL 1.6-2.6 [facility] Laboratory - Chemistry and C hemistry - challengeOrdered By: Dr. Roberts on 01-04-2023 ALP [Catalytic activity/Vol] 102 U/L 45-117 [facility] ALT [Catalytic activity/Vol] 18 U/L 16-61 [facility] CO2 [Moles/Vol] 25.0 mmol/L 21.0-32.0 [facility] Globulin (S) [Mass/Vol] 3.2 g/dL 2.2-4.2 [facility] Urea nitrogen/Creatinine [Mass ratio] 18.7 mg/mg 10-20 [facility] Laboratory - CoagulationOrde red By: Dr. Roberts on 01-04-2023 PT Coag (PPP) [Time] 32.6 s 11.7-14.9 [facility] Laboratory - Hematology and Cell countsOrdered By: Dr. Roberts on 01-04-2023 Erythrocyte distribution width (RBC) [Entitic vol] 42.3 fL 35.1-43.9 [place] Erythrocyte distribution width (RBC) [Ratio] 14.2 % 11.6-14.6 [facility] Immature granulocytes/100 WBC (Bld) 0.900 % 0.0-0.9 [facility] Comment on above: IG% - Immature Granu locytes (promyelocytes, myelocytes and metamyelocytes) > 1% indicates that a LEFT SHIFT is Present. MCH (RBC) [Entitic mass] 26.5 pg 27.0-32.0 [facility] Nucleated RBC/100 WBC (Bld) [Ratio] 0 % 0-5 [facility] Laboratory - Microbiology an d Antimicrobial susceptibilityOrdered By: Maggy Roberts on 01-04-2023 Bacteria identified Cx Nom (Bld) No growth in 5 days. [facility] MCHC Auto (RBC) [Mass/Vol]Or dered By: Dr. Roberts on 01-04-2023 MCHC (RBC) [Mass/Vol] 32.3 g/dL 32-36 [facility] Mucus LM Ql (Urine sed)Order ed By: Dr. Roberts on 01-04-2023 Mucus Ql (Urine sed) 0 SEEN /hpf [facility] Nitrite Test strip Ql (U)Ord ered By: Dr. Roberts on 01-04-2023 Nitrite Ql (U) Negative Negative [facility] No Panel InformationOrdered By: Dr. Aly on 01-04-2023 Blood Gas Oxygen Percent 21 [facility] Blood Gas Sample Site R Brach [facility] Blood Gas Specimen Type ART [facility] Blood Gas Total CO2 25 mmol/L [facility] Oxygen Delivery Device Room Air [facility] No Panel InformationOrdered By: Karen Aly on 01-04-2023 ART [facility] R Brach [facility] Room Air [facility] 21 [facility] 25 mmol/L [facility] 1.8 mg/dL 1.6-2.6 [facility] 260 pg/mL 211-911 [facility] No Panel InformationOrdered By: Maggy Roberts on 01-04-2023 No growth in 5 days. [facility] 7 pg/mL 3.0-78.0 [facility] No Panel InformationOrdered By: Dr. Roberts on 01-04-2023 Estimated Creatinine Clearance Calc 58.64 ml/min [facility] Estimated GFR (MDRD) Amer 74 mL/min >60 [facility] Comment on above: GFR Calc Estimated GFR (MDRD) Non-Af Amer 61 mL/min >60 [facility] Comment on above: Non- GFR Calc Troponin I High Sensitivity 7 pg/mL 3.0-78.0 [facility] Comment on above: Please Note: New Thania t Units and Gender Specific Reference Ranges. For more information see Policy Stat Procedure [facility] High Sensitivity Troponin (TNIH) and attachments. Oxygen (BldA) [Partial press ure]Ordered By: Dr. lAy on 01-04-2023 Oxygen (Bld) [Partial pressure] 78 mmHG 75-100 [facility] Platelets bldOrdered By: Dr. Roberts on 01-04-2023 Platelets (Bld) [#/Vol] 228 10*3/uL 150-450 [facility] Protein Test strip Ql (U)Ord ered By: Dr. Roberts on 01-04-2023 Protein Ql (U) 15 mg/dl Negative [facility] Serum Treponema species anti body detectionOrdered By: Karen Aly on 01-04-2023 Treponema sp Ab Ql (S) Non-Reactive [facility] Serum or plasma albumin antoine urement (mass/volume)Ordered By: Dr. Roberts on 01-04-2023 Albumin [Mass/Vol] 3.1 g/dL 3.2-5.0 [place] Serum or plasma calcium antoine urement (mass/volume)Ordered By: Dr. Roberts on 01-04-2023 Calcium [Mass/Vol] 8.6 mg/dL 8.5-10.1 [place] Serum or plasma creatinine m easurement (mass/volume)Ordered By: Dr. Roberts on 01-04-2023 Creatinine [Mass/Vol] 1.23 mg/dL 0.70-1.30 [facility] Comment on above: The validity of the calculated GFR & GFRAA in patients over 70 years has not been determined. Clinical correlation is essential. Serum or plasma folate measu rement (mass/volume)Ordered By: Karen Aly on 01-04-2023 Folate [Mass/Vol] 4.40 ng/mL 3.1-55.4 [facility] Serum or plasma urea nitroge n measurement (mass/volume)Ordered By: Dr. Roberts on 01-04-2023 Urea nitrogen [Mass/Vol] 23 mg/dL 7-18 [facility] Serum procalcitonin measurem entOrdered By: Karen Aly on 01-04-2023 Procalcitonin [Mass/Vol] ng/mL 0.00-0.09 [facility] Comment on above: A procalcitonin (PCT [...] Ql (Urine sed) 0-5 SEEN /hpf 0-5 [facility] Thin prep Papanicolaou smear with manual screeningOrdered By: Dr. Roberts on 01-04-2023 Thin prep Papanicolaou smear with manual screening 13 U/L 15-37 [facility] Thin prep Papanicolaou smear with manual screening 9 5-15 [facility] Urine blood detectionOrdered By: Dr. Roberts on 01-04-2023 RBC Ql (U) 10 /ul Negative [facility] RBC Ql (U) 0-5 SEEN /hpf 0-5 [facility] Urine clarityOrdered By: Dr. oRberts on 01-04-2023 Clarity (U) Sl. Cloudy Clear [facility] Urine color determinationOrd ered By: Dr. Roberts on 01-04-2023 Color (U) Yellow Yellow [facility] Urine glucose detectionOrder ed By: Dr. Roberts on 01-04-2023 Glucose Ql (U) 100 mg/dl Normal [facility] Urine leukocyte esterase det ection by dipstickOrdered By: Dr. Roberts on 01-04-2023 Leukocyte esterase Test strip Ql (U) Negative Negative [facility] Urine pHOrdered By: Dr. Yaya gallo on 01-04-2023 pH (U) 6.0 [pH] 5.0 - 8.0 [facility] Urine sediment bacteria coun t by microscopy (number/high power field)Ordered By: Dr. Roberts on 01-04-2023 Bacteria LM.HPF (Urine sed) [#/Area] 0 /[HPF] None Seen [facility] Urine specific gravity measu rementOrdered By: Dr. Roberts on 01-04-2023 Specific gravity (U) [Rel density] 1.020 1.002-1.03 0 [facility] Urobilinogen Auto test strip Ql (U)Ordered By: Dr. Roberts on 01-04-2023 Urobilinogen Ql (U) 4 mg/dl Normal [facility] pH measurementOrdered By: Dr Jose Aly on 01-04-2023 pH (Unsp spec) 7.45 [pH] 7.35-7.45 [facility] Absolute lymphocyte counton 07-11-2022 Lymphocytes Auto (Unsp spec) [#/Vol] 1.98 10*3/uL 0.83-4.51 [facility] Work Phone: Basophil percentageon 2021 Basophils/100 WBC (Bld) 0.6 % 0-1 [facility] Work Phone: Bilirubin [Mass/Vol] 0.90 mg/dL 0.20-1.00 [facility] Work Phone: Comment on above: For patients on eltr ombopag therapy, use of Dimension [place] TBIL is not recommended. Chloride [Moles/Vol] 105 mmol/L 98-107 [facility] Work Phone: Cholesterol [Mass/Vol] 102 mg/dL <200 [facility] Work Phone: Comment on above: <200 mg/dL Desirable 200-240 mg/dL Borderline >240 mg/dL High Risk Eosinophils/100 WBC (Bld) 4.1 % 0-5 [facility] Work Phone: Glucose [Mass/Vol] 103 mg/dL 74-106 [place] Work Phone: Comment on above: Fasting Glucose resu lt from 100 to 125 mg/dL suggests IMPAIRED HOMEOSTASIS per A.D.A. criteria. Neutrophils (Bld) [#/Vol] 5.2 10*3/uL 2.0-7.7 [facility] Work Phone: Neutrophils/100 WBC (Bld) 63.5 % 47-70 [facility] Work Phone: Potassium [Moles/Vol] 3.5 mmol/L 3.5-5.1 [facility] Work Phone: Protein [Mass/Vol] 5.9 g/dL 6.4-8.2 [place] Work Phone: Sodium [Moles/Vol] 138 mmol/L 136-145 [place] Work Phone: Triglyceride [Mass/Vol] 124 mg/dL <199 [facility] Work Phone: Comment on above: The drugs N-Acetylcy steine and Metamizole may falsely depress this assay.Serum Triglycerides Reference Interval Normal <150 mg/dL Borderline high 150 - 199 mg/dL High 200 - 499 mg/dL Very High > or = 500 mg/dL WBC (Bld) [#/Vol] 8.2 10*3/uL 4.4-11.0 [place] Work Phone: Blood erythrocytes count (nu mber/volume)on 07-11-2022 RBC (Bld) [#/Vol] 4.75 10*6/uL 4.6-6.2 [facility] Work Phone: Blood hemoglobin measurement (mass/volume)on 07-11-2022 Hemoglobin (Bld) [Mass/Vol] 12.7 g/dL 13.0-16. 5 [facility] Work Phone: Blood lymphocytes/100 leukoc yteson 07-11-2022 Lymphocytes/100 WBC (Bld) 24.1 % 19-41 [facility] Work Phone: Blood monocytes/100 leukocyt eson 07-11-2022 Monocytes/100 WBC (Bld) 6.8 % 0-10 [facility] Work Phone: Blood platelet mean volumeon 07-11-2022 Platelet mean volume (Bld) [Entitic vol] 9.2 fL 6.2-12.0 [facility] Work Phone: Determination of erythrocyte mean corpuscular volume (MCV)on 07-11-2022 MCV (RBC) [Entitic vol] 82.7 fL 80-94 [facility] Work Phone: Glucose Glucometer (BldC) [M ass/Vol]on 07-11-2022 Glucose [Mass/Vol] 149 mg/dL 74-106 [place] Work Phone: Comment on above: MANAGEMENT OF PATIEN T CARE PER NURSING PROTOCOL Hematocrit Auto (Bld) [Volum e fraction]on 07-11-2022 Hematocrit (Bld) [Volume fraction] 39.3 % 40-54 [facility] Work Phone: INR in Blood by Coagulation assayon 07-11-2022 INR Coag (Bld) [Relative time] 2.1 {INR} [facility] Work Phone: Laboratory - Chemistry and C hemistry - challengeon 07-11-2022 ALP [Catalytic activity/Vol] 106 U/L 45-117 [facility] Work Phone: ALT [Catalytic activity/Vol] 22 U/L 16-61 [facility] Work Phone: CO2 [Moles/Vol] 25.0 mmol/L 21.0-32.0 [facility] Work Phone: Globulin (S) [Mass/Vol] 2.9 g/dL 2.2-4.2 [facility] Work Phone: Magnesium [Mass/Vol] 1.9 mg/dL 1.6-2.6 [facility] Work Phone: Urea nitrogen/Creatinine [Mass ratio] 17.7 mg/mg 10-20 [facility] Work Phone: Laboratory - Coagulationon 09-11-2021 PT Coag (PPP) [Time] 23.6 s 11.7-14.9 [facility] Work Phone: Laboratory - Hematology and Cell countson 07-11-2022 Erythrocyte distribution width (RBC) [Entitic vol] 44.0 fL 35.1-43.9 [place] Work Phone: Erythrocyte distribution width (RBC) [Ratio] 14.6 % 11.6-14.6 [facility] Work Phone: [phone] Immature granulocytes/100 WBC (Bld) 0.900 % 0.0-0.9 [facility] Work Phone: Comment on above: IG% - Immature Granu locytes (promyelocytes, myelocytes and metamyelocytes) > 1% indicates that a LEFT SHIFT is Present. MCH (RBC) [Entitic mass] 26.7 pg 27.0-32.0 [facility] Work Phone: Nucleated RBC/100 WBC (Bld) [Ratio] 0 % 0-5 [facility] Work Phone: MCHC Auto (RBC) [Mass/Vol]on 07-11-2022 MCHC (RBC) [Mass/Vol] 32.3 g/dL 32-36 [facility] Work Phone: No Panel Informationon 07-11 Estimated Creatinine Clearance Calc 64.82 ml/min [facility] Work Phone: Estimated GFR (MDRD) Amer 81 mL/min >60 [facility] Work Phone: Comment on above: GFR Calc Estimated GFR (MDRD) Non-Af Amer 67 mL/min >60 [facility] Work Phone: Comment on above: Non- GFR Calc Platelets bldon 07-11-2022 Platelets (Bld) [#/Vol] 200 10*3/uL 150-450 [facility] Work Phone: Serum or plasma albumin antoine urement (mass/volume)on 07-11-2022 Albumin [Mass/Vol] 3.0 g/dL 3.2-5.0 [place] Work Phone: Serum or plasma albumin/glob ulin mass ratioon 07-11-2022 Albumin/Globulin [Mass ratio] 1.0 {ratio} 0.9-2.4 [facility] Work Phone: Serum or plasma calcium antoine urement (mass/volume)on 07-11-2022 Calcium [Mass/Vol] 8.6 mg/dL 8.5-10.1 [place] Work Phone: Serum or plasma cholesterol in HDL measurement (mass/volume)on 07-11-2022 Cholesterol in HDL [Mass/Vol] 36 mg/dL >40 [facility] Work Phone: Comment on above: The drugs N-Acetylcy steine and Metamizole may falsely depress this assay. Reference Range HDL <40 mg/dL Low HDL Cholesterol HDL >or= 60 mg/dL High HDL Cholesterol Serum or plasma cholesterol in VLDL measurement (mass/volume)on 07-11-2022 Cholesterol in VLDL [Mass/Vol] 25 mg/dL 5-40 [facility] Work Phone: Serum or plasma creatinine m easurement (mass/volume)on 07-11-2022 Creatinine [Mass/Vol] 1.13 mg/dL 0.70-1.30 [facility] Work Phone: Comment on above: The validity of the calculated GFR & GFRAA in patients over 70 years has not been determined. Clinical correlation is essential. Serum or plasma low density lipoprotein (LDL) cholesterol measurement (mass/volume)on 07-11-2022 Cholesterol in LDL [Mass/Vol] 41 mg/dL 0-130 [facility] Work Phone: Serum or plasma urea nitroge n measurement (mass/volume)on 07-11-2022 Urea nitrogen [Mass/Vol] 20 mg/dL 7-18 [facility] Work Phone: Thin prep Papanicolaou smear with manual screeningon 07-11-2022 Thin prep Papanicolaou smear with manual screening 23 U/L 15-37 [facility] Work Phone: Thin prep Papanicolaou smear with manual screening 8 5-15 [facility] Work Phone: No Panel Informationon 07-10 Troponin I High Sensitivity 103 pg/mL 3.0-78.0 [facility] Work Phone: Comment on above: Please Note: New Thania t Units and Gender Specific Reference Ranges. For more information see Policy Stat Procedure [facility] High Sensitivity Troponin (TNIH) and attachments. Thyroid Stimulating Hormone (TSH) 1.03 uIU/mL 0.358-3.74 [facility] Work Phone: Basophil percentageon 2021 Bas[facility] 0-5 [facility] Work Phone: Bilirubin Test strip Ql (U)o n 07-09-2022 Bilirubin Ql (U) Negative Negative [facility] Work Phone: Hyaline casts LM.LPF (Urine sed) [#/Area]on 07-09-2022 Hyaline casts (Urine sed) [#/Area] 0 /[LPF] 0-5 [facility] Work Phone: Ketones Test strip Ql (U)on 07-09-2022 Ketones Ql (U) 5 mg/dl Negative [facility] Work Phone: Mucus LM Ql (Urine sed)on Mucus Ql (Urine sed) 1+ /hpf [facility] Work Phone: Nitrite Test strip Ql (U)on 07-09-2022 Nitrite Ql (U) Negative Negative [facility] Work Phone: Protein Test strip Ql (U)on 07-09-2022 Protein Ql (U) 30 mg/dl Negative [facility] Work Phone: Squamous epithelial cells de tection in urine sediment by light microscopyon 07-09-2022 Epithelial cells.squamous LM Ql (Urine sed) 0 SEEN /hpf 0-5 [facility] Work Phone: Urine blood detectionon 06-15 RBC Ql (U) 25 /ul Negative [facility] Work Phone: RBC Ql (U) 0-5 SEEN /hpf 0-5 [facility] Work Phone: Urine clarityon 07-09-2022 Clarity (U) Clear Clear [facility] Work Phone: [phone] Urine color determinationon 07-09-2022 Color (U) Yellow Yellow [facility] Work Phone: [phone] Urine glucose detectionon Glucose Ql (U) Normal mg/dl Normal [facility] Work Phone: Urine leukocyte esterase det ection by dipstickon 07-09-2022 Leukocyte esterase Test strip Ql (U) Negative Negative [facility] Work Phone: Urine pHon 07-09-2022 pH (U) 5.0 [pH] 5.0 - 8.0 [facility] Work Phone: Urine sediment bacteria coun t by microscopy (number/high power field)on 07-09-2022 Bacteria LM.HPF (Urine sed) [#/Area] 1 /[HPF] None Seen [facility] Work Phone: Urine specific gravity measu rementon 07-09-2022 Specific gravity (U) [Rel density] 1.025 1.002-1.03 0 [facility] Work Phone: Urobilinogen Auto test strip Ql (U)on 07-09-2022 Urobilinogen Ql (U) 1 mg/dl Normal [facility] Work Phone: INR in Blood by Coagulation assayon 03-07-2022 INR Coag (Bld) [Relative time] 2.9 {INR} [facility] Laboratory - Coagulationon 0 03-07-2022 PT Coag (PPP) [Time] 30.2 s 11.7-14.9 [facility] Work Phone: Absolute lymphocyte counton 03-02-2022 Lymphocytes Auto (Unsp spec) [#/Vol] 1.26 10*3/uL 0.83-4.51 [facility] Work Phone: Basophil percentageon 2021 Basophil percentage 0 SEEN /hpf 0-5 [facility] Work Phone: Basophils/100 WBC (Bld) 0.4 % 0-1 [facility] Work Phone: Chloride [Moles/Vol] 105 mmol/L 98-107 [facility] Work Phone: Eosinophils/100 WBC (Bld) 2.5 % 0-5 [facility] Work Phone: [phone] Glucose [Mass/Vol] 158 mg/dL 74-106 [place] Work Phone: Comment on above: Fasting Glucose resu lt greater than or equal to 126 mg/dL suggests DIABETES MELLITUS per A.D.A. criteria. Neutrophils (Bld) [#/Vol] 8.8 10*3/uL 2.0-7.7 [facility] Work Phone: [phone] Neutrophils/100 WBC (Bld) 78.8 % 47-70 [facility] Work Phone: [phone] Potassium [Moles/Vol] 4.2 mmol/L 3.5-5.1 [facility] Work Phone: Sodium [Moles/Vol] 138 mmol/L 136-145 [facility] Work Phone: [phone] WBC (Bld) [#/Vol] 11.2 10*3/uL 4.4-11.0 [facility] Work Phone: Bilirubin Test strip Ql (U)o n 03-02-2022 Bilirubin Ql (U) Negative Negative [facility] Work Phone: Blood erythrocytes count (nu mber/volume)on 03-02-2022 RBC (Bld) [#/Vol] 5.15 10*6/uL 4.6-6.2 [facility] Work Phone: Blood hemoglobin measurement (mass/volume)on 03-02-2022 Hemoglobin (Bld) [Mass/Vol] 13.8 g/dL 13.0-16. 5 [facility] Work Phone: [phone] Blood lymphocytes/100 leukoc yteson 03-02-2022 Lymphocytes/100 WBC (Bld) 11.2 % 19-41 [facility] Work Phone: [phone] Blood monocytes/100 leukocyt eson 03-02-2022 Monocytes/100 WBC (Bld) 5.7 % 0-10 [facility] Work Phone: Blood platelet mean volumeon 03-02-2022 Platelet mean volume (Bld) [Entitic vol] 9.0 fL 6.2-12.0 [facility] Work Phone: [phone] Determination of erythrocyte mean corpuscular volume (MCV)on 03-02-2022 MCV (RBC) [Entitic vol] 82.3 fL 80-94 [facility] Work Phone: [phone] Glucose Glucometer (BldC) [M ass/Vol]on 03-02-2022 Glucose [Mass/Vol] 158 mg/dL 74-106 [place] Work Phone: Comment on above: MANAGEMENT OF PATIEN T CARE PER NURSING PROTOCOL Hematocrit Auto (Bld) [Volum e fraction]on 03-02-2022 Hematocrit (Bld) [Volume fraction] 42.4 % 40-54 [facility] Work Phone: Hyaline casts LM.LPF (Urine sed) [#/Area]on 03-02-2022 Hyaline casts (Urine sed) [#/Area] 0 /[LPF] 0-5 [facility] Work Phone: INR in Blood by Coagulation assayon 03-02-2022 INR Coag (Bld) [Relative time] 4.4 {INR} [facility] Work Phone: Comment on above: CRITICAL VALUE VERIF IED. CALLED TO [id number]/19/22 [id number] Brie Ma.RESULTS READ BACK BY SAME . Ketones Test strip Ql (U)on 03-02-2022 Ketones Ql (U) 5 mg/dl Negative [facility] Work Phone: Laboratory - Chemistry and C hemistry - challengeon 03-02-2022 CO2 [Moles/Vol] 23.0 mmol/L 21.0-32.0 [facility] Work Phone: Urea nitrogen/Creatinine [Mass ratio] 16.9 mg/mg 10-20 [facility] Work Phone: Laboratory - Coagulationon 0 03-02-2022 PT Coag (PPP) [Time] 41.4 s 11.7-14.9 [facility] Work Phone: Laboratory - Hematology and Cell countson 03-02-2022 Erythrocyte distribution width (RBC) [Entitic vol] 41.4 fL 35.1-43.9 [place] Work Phone: Erythrocyte distribution width (RBC) [Ratio] 14.0 % 11.6-14.6 [facility] Work Phone: Immature granulocytes/100 WBC (Bld) 1.400 % 0.0-0.9 [facility] Work Phone: Comment on above: IG% - Immature Granu locytes (promyelocytes, myelocytes and metamyelocytes) > 1% indicates that a LEFT SHIFT is Present. MCH (RBC) [Entitic mass] 26.8 pg 27.0-32.0 [facility] Work Phone: Nucleated RBC/100 WBC (Bld) [Ratio] 0 % 0-5 [facility] Work Phone: MCHC Auto (RBC) [Mass/Vol]on 03-02-2022 MCHC (RBC) [Mass/Vol] 32.5 g/dL 32-36 [facility] Work Phone: Mucus LM Ql (Urine sed)on Mucus Ql (Urine sed) 3+ /hpf [facility] Work Phone: Nitrite Test strip Ql (U)on 03-02-2022 Nitrite Ql (U) Negative Negative [facility] Work Phone: No Panel Informationon 03-02 Estimated Creatinine Clearance Calc 49.49 ml/min [facility] Work Phone: Estimated GFR (MDRD) Amer 60 mL/min >60 [facility] Work Phone: Comment on above: GFR Calc Estimated GFR (MDRD) Non-Af Amer 49 mL/min >60 [facility] Work Phone: Comment on above: Non- GFR Calc Troponin I High Sensitivity 11 pg/mL 3.0-78.0 [facility] Work Phone: Comment on above: Please Note: New Thania t Units and Gender Specific Reference Ranges. For more information see Policy Stat Procedure [facility] High Sensitivity Troponin (TNIH) and attachments. Platelets bldon 03-02-2022 Platelets (Bld) [#/Vol] 269 10*3/uL 150-450 [facility] Work Phone: Protein Test strip Ql (U)on 03-02-2022 Protein Ql (U) 30 mg/dl Negative [facility] Work Phone: Serum or plasma calcium antoine urement (mass/volume)on 03-02-2022 Calcium [Mass/Vol] 9.4 mg/dL 8.5-10.1 [place] Work Phone: Serum or plasma creatinine m easurement (mass/volume)on 03-02-2022 Creatinine [Mass/Vol] 1.48 mg/dL 0.70-1.30 [facility] Work Phone: Comment on above: The validity of the calculated GFR & GFRAA in patients over 70 years has not been determined. Clinical correlation is essential. Serum or plasma urea nitroge n measurement (mass/volume)on 03-02-2022 Urea nitrogen [Mass/Vol] 25 mg/dL 7-18 [facility] Work Phone: Squamous epithelial cells de tection in urine sediment by light microscopyon 03-02-2022 Epithelial cells.squamous LM Ql (Urine sed) 0-5 SEEN /hpf 0-5 [facility] Work Phone: Thin prep Papanicolaou smear with manual screeningon 03-02-2022 Thin prep Papanicolaou smear with manual screening 10 5-15 [facility] Work Phone: Urine blood detectionon 02-12 RBC Ql (U) 10 /ul Negative [facility] Work Phone: RBC Ql (U) 0-5 SEEN /hpf 0-5 [facility] Work Phone: Urine clarityon 03-02-2022 Clarity (U) Clear Clear [facility] Work Phone: Urine color determinationon 03-02-2022 Color (U) Yellow Yellow [facility] Work Phone: Urine glucose detectionon Glucose Ql (U) 50 mg/dl Normal [facility] Work Phone: Urine leukocyte esterase det ection by dipstickon 03-02-2022 Leukocyte esterase Test strip Ql (U) Negative Negative [facility] Work Phone: Urine pHon 03-02-2022 pH (U) 5.0 [pH] 5.0 - 8.0 [facility] Work Phone: Urine sediment bacteria coun t by microscopy (number/high power field)on 03-02-2022 Bacteria LM.HPF (Urine sed) [#/Area] 2 /[HPF] None Seen [facility] Work Phone: Urine specific gravity measu rementon 03-02-2022 Specific gravity (U) [Rel density] 1.025 1.002-1.03 0 [facility] Work Phone: Urobilinogen Auto test strip Ql (U)on 03-02-2022 Urobilinogen Ql (U) Normal mg/dl Normal [facility] Work Phone: ECHOon 01-09-2022 [facility] CNPMaggie 01-02-2022 CNPN Telephone (VICTORIANO) RICHARD ROY ([id number]) 1945 M Date Time Provider Department 01/02/22 JUSTINA MONIQUE During your visit today, we recorded the following information about you: Justina Garcia LPN 01/02/2022 7:43 AM Signed ----- Message from Justina Monique APRN.MANAGER SIMULATION sent at 01/02/2022 7:38 AM EDT ----- [...] Reviewed: 01/01/2022 Reviewed by: Justina Monique APRN.MANAGER SIMULATION - Fully Assessed Reason for Visit: Results [...] mouth once daily. - blood sugar diagnostic (ONETOUCH ULTRA TEST) [...] Immature Gran 0.15 k/uL High <0.10 k/uL [facility] Basophils (Bld) [#/Vol] 0.06 10*3/uL <0.11 k/uL [facility] Basophils/100 WBC (Bld) 0.5 % [facility] Differential cell count method Nom (Bld) Auto [facility] Eosinophils (Bld) [#/Vol] 0.39 10*3/uL <0.46 k/ uL [facility] Eosinophils/100 WBC (Bld) 3.1 % [facility] Erythrocyte distribution width (RBC) [Ratio] 14.5 % 11.5 - 15.0 % [facility] Hematocrit (Bld) [Volume fraction] 46.6 % 39.0 - 51.0 % [facility] Hemoglobin (Bld) [Mass/Vol] 14.5 g/dL 13.0 - 17.0 g/dL [facility] Immature Gran % 1.2 % [facility] Lymphocytes (Bld) [#/Vol] 1.81 10*3/uL 1. 00 - 4.00 k/uL [facility] Lymphocytes/100 WBC (Bld) 14.5 % [facility] MCH (RBC) [Entitic mass] 26.6 pg 26. 0 - 34.0 pg [facility] MCHC (RBC) [Mass/Vol] 31.1 g/dL 30.5 - 36.0 g/dL [facility] MCV (RBC) [Entitic vol] 85.3 fL 80.0 - 100.0 fL [facility] Monocytes (Bld) [#/Vol] 0.86 10*3/uL <0.87 k/uL [facility] Monocytes/100 WBC (Bld) 6.9 % [facility] Neutrophils (Bld) [#/Vol] 9.20 10*3/uL High 1. 45 - 7.50 k/uL [facility] Neutrophils/100 WBC (Bld) 73.8 % [facility] Nucleated RBC (Bld) [#/Vol] 10*3/uL <0.01 k/ uL [facility] Nucleated RBC/100 WBC (Bld) [Ratio] 0.0 /100 WBC [facility] Platelet mean volume (Bld) [Entitic vol] 9.7 fL 9.0 - 12.7 fL [facility] Platelets (Bld) [#/Vol] 287 10*3/uL 150 - 400 k/uL [facility] RBC (Bld) [#/Vol] 5.46 10*6/uL 4.20 - 6.00 m/uL [facility] WBC (Bld) [#/Vol] 12.47 10*3/uL High 3.70 - 11.00 k/uL [facility] Comprehensive metabolic 2000 panelon 01-01-2022 Albumin [Mass/Vol] 4.2 g/dL 3.9 - 4.9 g/dL [facility] ALP [Catalytic activity/Vol] 96 U/L 38 - 113 U/L [facility] ALT [Catalytic activity/Vol] 29 U/L 10 - 54 U/L [facility] Anion gap [Moles/Vol] 12 mmol/L 9 - 18 mmol/L [facility] AST [Catalytic activity/Vol] 20 U/L 14 - 40 U/L [facility] Bilirubin [Mass/Vol] 0.6 mg/dL 0.2 - 1 .3 mg/dL [facility] Calcium [Mass/Vol] 9.4 mg/dL 8.5 - 10. 2 mg/dL [facility] Chloride [Moles/Vol] 101 mmol/L 97 - 10 5 mmol/L [facility] CO2 [Moles/Vol] 25 mmol/L 22 - 30 mmol/L [facility] Creatinine [Mass/Vol] 1.20 mg/dL 0.73 - 1.22 mg/dL [facility] Estimated Glomerular Filtration Rate 63 mL/min/1.73m >=60 mL/min/1.7 3m [facility] Glucose [Mass/Vol] 118 mg/dL High 74 - 99 mg/dL [facility] Potassium [Moles/Vol] 4.4 mmol/L 3.7 - 5.1 mmol/L [facility] Protein [Mass/Vol] 6.6 g/dL 6.3 - 8.0 g/dL [facility] Sodium [Moles/Vol] 138 mmol/L 136 - 144 mmol/L [facility] Urea nitrogen [Mass/Vol] 15 mg/dL 9 - 24 mg/dL [facility] PSA/PROSTSPECAG SCRNon 01-01 Prostate specific Ag [Mass/Vol] 1.75 ng/mL <2.60 ng/mL [facility] UA DIP, URINE (POC)on 2021 BILIRUBIN UA (POCT) Negative Negative [facility] CLARITY UA (POCT) Clear [facility] COLOR UA (POCT) Dark [facility] GLUCOSE UA (POCT) 100 mg/dL Abnormal Negative mg/dL [facility] HEMOGLOBIN/BLOOD UA (POCT) Trace-intact Abnormal Negativ e [facility] KETONE UA (POCT) Negative Negative mg/dL [facility] LEUKOCYTES U[facility] (POCT) [facility] NITRITE UA (POCT) Negative Negative [facility] PH UA (POCT) 5.5 4.5 - 8.0 [facility] Protein Ql (U) 30 mg/dL Abnormal Negative mg/dL [facility] SPECIFIC GRAVITY UA (POCT) >=1.030 1 .005 - 1.030 [facility] UROBILINOGEN UA (POCT) 1.0 E.U./dL Lanette l E.U./dL [facility] VITAMIN B12 BLOODon 01-02-20 Cobalamin (Vitamin B12) [Mass/Vol] 377 pg/mL 232-1,245 pg/mL [facility] Absolute lymphocyte counton 12-29-2021 Lymphocytes Auto (Unsp spec) [#/Vol] 1.56 10*3/uL 0.83-4.51 [facility] Work Phone: BCIDon 12-29-2021 Acinetobacter justen-baumanii complex Not detected Normal Not Detected [facility] ([place] Comment on above: Performed By: #### B JIN #### [place] [address] Bacteroides fragilis Not detected Normal Not Detected [facility] ([place] Comment on above: Performed By: #### B JIN #### [address] [address] BCID Comment See Comment Normal [facility] ([place] Comment on above: Result Comment: Anti microbial [...] follow. Performed By: #### B JIN #### [facility] [address] [place] [address] Kellie albicans Not detected Normal Not Detected [facility] ([place]) Comment on above: Performed By: #### B JIN #### [facility] [address] [place] [address] Kellie auris Not detected Normal Not Detected [facility] ([place]) Comment on above: Performed By: #### B JIN #### [facility] [address] [place], [place] [id number] Kellie glabrata Not detected Normal Not Detected [facility] ([place] Comment on above: Performed By: #### B JIN #### [place] [address] Kellie krusei Not detected Normal Not Detected [facility] ([place] Comment on above: Performed By: #### B JIN #### [place] [address] Kellie parapsilosis Not detected Normal Not Detected [facility] ([place] Comment on above: Performed By: #### B JIN #### [place] [address] Kellie tropicalis Not detected Normal Not Detected [facility] ([place] Comment on above: Performed By: #### B JIN #### [place] [address] Cryptococcus neoformans-gattii Not detected Normal Not Detected [facility] ([place]) Comment on above: Performed By: #### B JIN #### [place] [id number] CTX-M (ESBL) Not Applicable Normal Not Detected [facility] ([place]) Comment on above: Performed By: #### B JIN #### [facility] [address] [place] [address] E. Coli Not detected Normal Not Detected [facility] ([place] Comment on above: Performed By: #### B JIN #### [facility] [address] [place] [address] Enterobacter cloacae Complex Not detected Normal Not Detected [facility] ([place]) Comment on above: Performed By: #### B JIN #### [facility] [address] [place], [place] [address] Enterobacterales Not detected Normal Not Detected [facility] ([place]) Comment on above: Performed By: #### B JIN #### [facility] [address] [place] [address] Enterococcus faecalis Not detected Normal Not Detected [facility] ([place] Comment on above: Performed By: #### B JIN #### [facility] [address] [place] [address] Enterococcus faecium Not detected Normal Not Detected [facility] ([place] Comment on above: Performed By: #### B JIN #### [facility] [address] [place] [address] Haemophilus influenzae Not detected Normal Not Detected [facility] ([place] Comment on above: Performed By: #### B JIN #### [facility] [address] [place] [address] IMP (Carbapenemase) Not Applicable Normal Not Detected [facility] ([place] Comment on above: Performed By: #### B JIN #### [place] [address] Klebsiella aerogenes Not detected Normal Not Detected [facility] ([place] Comment on above: Performed By: #### B JIN #### [place] [address] Klebsiella oxytoca Not detected Normal Not Detected [facility] ([place] Comment on above: Performed By: #### B JIN #### [address] [address] Klebsiella pneumoniae group Not detected Normal Not Detected [facility] ([place] Comment on above: Performed By: #### B JIN #### [place] [address] KPC (Carbapenemase) Not Applicable Normal Not Detected [facility] ([place] Comment on above: Performed By: #### B JIN #### [address] [address] Listeria monocytogenes Not detected Normal Not Detected [facility] ([place] Comment on above: Performed By: #### B JIN #### [place] [id number] MCR-1 (Colistin Resistance) Not Applicable Normal Not Detected [facility] ([place] Comment on above: Performed By: #### B JIN #### [place] [address] Mec A/C Detected Abnormal Not Detected [facility] ([place] Comment on above: Performed By: #### B JIN #### [place] [address] Mec A/C-MREJ (MRSA) Not Applicable Normal Not Detected [facility] ([place] Comment on above: Performed By: #### B JIN #### [place] [address] NDM (Carbapenemase) Not Applicable Normal Not Detected [facility] ([place] Comment on above: Performed By: #### B JIN #### [place] [address] Neisseria meningitidis (Encapsalated) Not detected Normal Not Detected [facility] ([place] Comment on above: Performed By: #### B JIN #### [place] [address] OXA-48 like (Carbapenemase) Not Applicable Normal Not Detected [facility] ([place] Comment on above: Performed By: #### B JIN #### [place] [address] Proteus Not detected Normal Not Detected [facility] ([place] Comment on above: Performed By: #### B JIN #### [place] [address] Pseudomonas aeruginosa Not detected Normal Not Detected [facility] ([place] Comment on above: Performed By: #### B JIN #### [place] [address] S. agalactiae Org specific cx Ql (Vag fld) Not detected Normal Not Detected [facility] ([place] Comment on above: Performed By: #### B JIN #### [place] [address] Salmonella species Not detected Normal Not Detected [facility] ([place] Comment on above: Performed By: #### B JIN #### [facility] [address] [place], [place] [address] Serratia marcescens Not detected Normal Not Detected [facility] ([place] Comment on above: Performed By: #### B JIN #### [facility] [address] [place] [address] Staphylococcus Detected Abnormal Not Detected [facility] ([place] Comment on above: Performed By: #### B JIN #### [facility] [address] [place] [address] Staphylococcus aureus Not detected Normal Not Detected [facility] ([place] Comment on above: Result Comment: If S taphylococcus aureus is "Detected", an Infectious Disease physician consult is required on identification. Performed By: #### B JIN #### [facility] [address] [place] [address] Staphylococcus epidermidis Detected Abnormal N ot Detected [facility] ([place] Comment on above: Performed By: #### B JIN #### [address] [address] Staphylococcus lugdunensis Not detected Normal N ot Detected [facility] ([place] Comment on above: Performed By: #### B JIN #### [address] [address] Stenotropomonas maltophilia Not detected Normal Not Detected [facility] ([place] Comment on above: Performed By: #### B JIN #### [address] [address] Streptococcus Not detected Normal Not Detected [facility] ([place] Comment on above: Performed By: #### B JIN #### [address] [address] Streptococcus pneumoniae Not detected Normal Not Detected [facility] ([place] Comment on above: Performed By: #### B JIN #### [address] [address] Streptococcus pyogenes Not detected Normal Not Detected [facility] ([place] Comment on above: Performed By: #### B JIN #### [facility] [address] [place] [address] Van A/B Not Applicable Normal Not Detected [facility] ([place] Comment on above: Performed By: #### B JIN #### [address], [place] [address] VIM (Carbapenemase) Not Applicable Normal Not Detected [facility] ([place] Comment on above: Performed By: #### B JIN #### [address] [address] Basophil percentageon 2021 Basophils/100 WBC (Bld) 0.3 % 0-1 [facility] Work Phone: Chloride [Moles/Vol] 108 mmol/L 98-107 [facility] Work [facility]: Eosinophils/100 WBC (Bld) 3.2 % 0-5 [facility] Work Phone: Glucose [Mass/Vol] 109 mg/dL 74-106 [place] Work Phone: Comment on above: Fasting Glucose resu lt from 100 to 125 mg/dL suggests IMPAIRED HOMEOSTASIS per A.D.A. criteria. Neutrophils (Bld) [#/Vol] 6.6 10*3/uL 2.0-7.7 [facility] Work Phone: Neutrophils/100 WBC (Bld) 70.4 % 47-70 [facility] Work Phone: Potassium [Moles/Vol] 4.1 mmol/L 3.5-5.1 [facility] Work Phone: Sodium [Moles/Vol] 140 mmol/L 136-145 [place] Work Phone: WBC (Bld) [#/Vol] 9.4 10*3/uL 4.4-11.0 [facility] Work Phone: Blood erythrocytes count (nu mber/volume)on 12-29-2021 RBC (Bld) [#/Vol] 4.61 10*6/uL 4.6-6.2 [facility] Work Phone: Blood hemoglobin measurement (mass/volume)on 12-29-2021 Hemoglobin (Bld) [Mass/Vol] 12.4 g/dL 13.0-16. 5 [facility] Work Phone: Blood lymphocytes/100 leukoc yteson 12-29-2021 Lymphocytes/100 WBC (Bld) 16.7 % 19-41 [facility] Work Phone: Blood monocytes/100 leukocyt eson 12-29-2021 Monocytes/100 WBC (Bld) 8.7 % 0-10 [facility] Work Phone: Blood platelet mean volumeon 12-29-2021 Platelet mean volume (Bld) [Entitic vol] 9.3 fL 6.2-12.0 [facility] Work Phone: Determination of erythrocyte mean corpuscular volume (MCV)on 12-29-2021 MCV (RBC) [Entitic vol] 82.9 fL 80-94 [facility] Work Phone: Glucose Glucometer (BldC) [M ass/Vol]on 12-29-2021 Glucose [Mass/Vol] 129 mg/dL 74-106 [facility] Work Phone: Comment on above: MANAGEMENT OF PATIEN T CARE PER NURSING PROTOCOL Hematocrit Auto (Bld) [Volum e fraction]on 12-29-2021 Hematocrit (Bld) [Volume fraction] 38.2 % 40-54 [facility] Work Phone: Laboratory - Chemistry and C hemistry - challengeon 12-29-2021 CO2 [Moles/Vol] 27.0 mmol/L 21.0-32.0 [facility] Work Phone: Urea nitrogen/Creatinine [Mass ratio] 16.5 mg/mg 10-20 [facility] Work Phone: Laboratory - Hematology and Cell countson 12-29-2021 Erythrocyte distribution width (RBC) [Entitic vol] 42.5 fL 35.1-43.9 [facility] Work Phone: Erythrocyte distribution width (RBC) [Ratio] 14.2 % 11.6-14.6 [facility] Work Phone: Immature granulocytes/100 WBC (Bld) 0.700 % 0.0-0.9 [facility] Work Phone: Comment on above: IG% - Immature Granu locytes (promyelocytes, myelocytes and metamyelocytes) > 1% indicates that a LEFT SHIFT is Present. MCH (RBC) [Entitic mass] 26.9 pg 27.0-32.0 [facility] Work Phone: Nucleated RBC/100 WBC (Bld) [Ratio] 0 % 0-5 [facility] Work Phone: MCHC Auto (RBC) [Mass/Vol]on 12-29-2021 MCHC (RBC) [Mass/Vol] 32.5 g/dL 32-36 [facility] Work Phone: No Panel Informationon 12-29 Estimated Creatinine Clearance Calc 71.11 ml/min [facility] Work Phone: Estimated GFR (MDRD) Amer 91 mL/min >60 [facility] Work Phone: Comment on above: GFR Calc Estimated GFR (MDRD) Non-Af Amer 75 mL/min >60 [facility] Work Phone: Comment on above: Non- GFR Calc Platelets bldon 12-29-2021 Platelets (Bld) [#/Vol] 177 10*3/uL 150-450 [facility] Work Phone: Serum or plasma calcium antoine urement (mass/volume)on 12-29-2021 Calcium [Mass/Vol] 8.4 mg/dL 8.5-10.1 [place] Work Phone: Serum or plasma creatinine m easurement (mass/volume)on 12-29-2021 Creatinine [Mass/Vol] 1.03 mg/dL 0.70-1.30 [facility] Work Phone: Comment on above: The validity of the calculated GFR & GFRAA in patients over 70 years has not been determined. Clinical correlation is essential. Serum or plasma urea nitroge n measurement (mass/volume)on 12-29-2021 Urea nitrogen [Mass/Vol] 17 mg/dL 7-18 [facility] Work Phone: Thin prep Papanicolaou smear with manual screeningon 12-29-2021 Thin prep Papanicolaou smear with manual screening 5 5-15 [facility] Work Phone: Basophil percentageon 2021 Lactate [Moles/Vol] 1.9 mmol/L 0.4-2.0 [facility] Work Phone: COon 12-28-2021 Carbon Monoxide Level See Comments Normal [facility] [place] Comment on above: Order Comment: See S eparate Report Performed By: #### L IP, MG, TROPHS, CK, LAC, GFR, CO, CMP ####[facility] [address] [place], [place] [address] Laboratory - Chemistry and C hemistry - challengeon 12-28-2021 Magnesium [Mass/Vol] 1.8 mg/dL 1.6-2.6 [facility] Work Phone: No Panel Informationon 12-28 Troponin I High Sensitivity 23 pg/mL 3.0-78.0 [facility] Work Phone: Comment on above: Please Note: New Thania t Units and Gender Specific Reference Ranges. For more information see Policy Stat Procedure [place] High Sensitivity Troponin (TNIH) and attachments. .Auto Diffon 12-27-2021 Basophil, Absolute 0.1 10 3/mcL Normal 0.0-0.2 [facility] ([place]) Comment on above: Performed By: #### L IP, MG, TROPHS, CK, LAC, GFR, CO, CMP #### [facility] [address] Basophils/100 WBC (Bld) 0.4 % Normal 0.0-2.5 [facility] ([place] Comment on above: Performed By: #### L IP, MG, TROPHS, CK, LAC, GFR, CO, CMP #### [place] [address] [place], [place] [address] Eosinophil, Absolute 0.1 10 3/mcL Normal 0.0-0.4 [facility] ([place]) Comment on above: Performed By: #### L IP, MG, TROPHS, CK, LAC, GFR, CO, CMP #### [address] [address] Eosinophils/100 WBC (Bld) 0.7 % Normal 0.0-7.0 [facility] ([place] Comment on above: Performed By: #### L IP, MG, TROPHS, CK, LAC, GFR, CO, CMP #### [address] [address] Lymphocyte, Absolute 1.4 10 3/mcL Normal 0.8-3.9 [facility] ([place]) Comment on above: Performed By: #### L IP, MG, TROPHS, CK, LAC, GFR, CO, CMP #### [address] [address] Lymphocytes/100 WBC (Bld) 9.6 % Low 10.0-50.0 [facility] ([place] Comment on above: Performed By: #### L IP, MG, TROPHS, CK, LAC, GFR, CO, CMP #### [address] [address] Monocyte, Absolute 0.8 10 3/mcL Normal 0.2-1.0 [facility] ([place] Comment on above: Performed By: #### L IP, MG, TROPHS, CK, LAC, GFR, CO, CMP #### [address] [address] Monocytes/100 WBC (Bld) 5.3 % Normal 1.7-13.0 [facility] ([place]) Comment on above: Performed By: #### L IP, MG, TROPHS, CK, LAC, GFR, CO, CMP #### [address] [address] Neutrophils/100 WBC (Bld) 84.0 % High 37.0-80.0 [facility] ([place] Comment on above: Performed By: #### L IP, MG, TROPHS, CK, LAC, GFR, CO, CMP #### [address] [address] .GFRon 12-27-2021 GFR 43 ml/min/1.73sqm Normal [facility] ([place] Comment on above: Result Comment: GFR Population [...] CK, LAC, GFR, CO, CMP ####[facility] [address] [place], [place] [address] GFR Non- 35 ml/min/1.73sqm Normal [facility] ([place]) Comment on above: Result Comment: GFR Population [...] TROPHS, CK, LAC, GFR, CO, CMP ####[facility] [address] [place], [place] [address] .MDWsameera 12-27-2021 Monocyte Distribution Width 15.91 Normal 0.00-20. 00 [facility] ([place]) Comment on above: Result Comment: For ED adult patients suspected of sepsis, MDW<=20.0 does not rule out sepsis or risk of sepsis Performed By: #### L IP, MG, TROPHS, CK, LAC, GFR, CO, CMP ####[facility] [address] [place], [place] [address] .NEUABSon 12-27-2021 Neutrophil, Absolute 12.6 10 3/mcL High 2.9-6.2 [facility] ([place] Comment on above: Performed By: #### L IP, MG, TROPHS, CK, LAC, GFR, CO, CMP ####[facility] [address] [place], [place] [address] Basophil percentageon 2021 Basophil percentage 3.8 mg/dL 2.5-4.9 [facility] Work Phone: Bilirubin [Mass/Vol] 0.80 mg/dL 0.20-1.00 [facility] Work Phone: Comment on above: For patients on eltr ombopag therapy, use of Dimension Larue TBIL is not recommended. Protein [Mass/Vol] 6.3 g/dL 6.4-8.2 [facility] Work Phone: CBCon 12-27-2021 Erythrocyte distribution width (RBC) [Ratio] 14.9 % High 11.5-14.5 [facility] ([place] Comment on above: Performed By: #### L IP, MG, TROPHS, CK, LAC, GFR, CO, CMP #### [facility] [address] [address] Hematocrit (Bld) [Volume fraction] 43.2 % Normal 42.0-52.0 [facility] ([place] Comment on above: Performed By: #### L IP, MG, TROPHS, CK, LAC, GFR, CO, CMP #### [facility] [place] [address] [place], [place] [address] Hgb 14.4 G/dL Normal 14.0-18.0 [facility] ([place] Comment on above: Performed By: #### L IP, MG, TROPHS, CK, LAC, GFR, CO, CMP #### [address] [address] MCH (RBC) [Entitic mass] 26.8 pg Low 27.0-31.2 [facility] ([place] Comment on above: Performed By: #### L IP, MG, TROPHS, CK, LAC, GFR, CO, CMP #### [address] [address] MCHC 33.4 G/dL Normal 31.8-35.4 [facility] ([place] Comment on above: Performed By: #### L IP, MG, TROPHS, CK, LAC, GFR, CO, CMP #### [address] [address] MCV (RBC) [Entitic vol] 80.2 fL Normal 80.0-94.0 [facility] ([place] Comment on above: Performed By: #### L IP, MG, TROPHS, CK, LAC, GFR, CO, CMP #### [place] [id number] Platelet 305 10 3/mcL Normal 130-400 [facility] ([place]) Comment on above: Performed By: #### L IP, MG, TROPHS, CK, LAC, GFR, CO, CMP #### [address] [address] Platelet mean volume (Bld) [Entitic vol] 7.5 fL Normal 7.4-10.4 [facility] ([place] Comment on above: Performed By: #### L IP, MG, TROPHS, CK, LAC, GFR, CO, CMP #### [address] [address] RBC 5.39 10 6/mcL Normal 4.04-6.13 [facility] ([place] Comment on above: Performed By: #### L IP, MG, TROPHS, CK, LAC, GFR, CO, CMP #### [address] [address] WBC 15.0 10 3/mcL High 4.6-10.8 [facility] ([place] Comment on above: Performed By: #### L IP, MG, TROPHS, CK, LAC, GFR, CO, CMP #### [address] [place], [place] [address] CKon 12-27-2021 CK [Catalytic activity/Vol] 220 U/L Normal 39-308 [facility] ([place]) Comment on above: Performed By: #### L IP, MG, TROPHS, CK, LAC, GFR, CO, CMP ####[facility] [address] [place], [place] [address] CMPon 12-27-2021 Albumin Level 3.8 G/dL Normal 3.4-4.8 [facility] ([place] Comment on above: Performed By: #### L IP, MG, TROPHS, CK, LAC, GFR, CO, CMP ####[facility] [address] [address] Albumin/Globulin [Mass ratio] 1.4 {ratio} Normal 1.1-2.5 [facility] ([place]) Comment on above: Performed By: #### L IP, MG, TROPHS, CK, LAC, GFR, CO, CMP ####[facility] [address] [place], [place] [address] ALP [Catalytic activity/Vol] 105 U/L Normal 40-135 [facility] ([place] Comment on above: Performed By: #### L IP, MG, TROPHS, CK, LAC, GFR, CO, CMP ####[facility] [address] [place], [place] [address] ALT [Catalytic activity/Vol] 20 U/L Normal 16-63 [facility] ([place] Comment on above: Performed By: #### L IP, MG, TROPHS, CK, LAC, GFR, CO, CMP ####[facility] [address] [place], [place] [address] AST [Catalytic activity/Vol] 16 U/L Normal 10-40 [facility] ([place] Comment on above: Performed By: #### L IP, MG, TROPHS, CK, LAC, GFR, CO, CMP ####[facility] [address] [place], [place] [address] Bili Total 0.8 mg/dL Normal 0.2-1.0 [facility] ([place] Comment on above: Result Comment: Use of this assay is not recommended for patients undergoing treatment with eltrombopag due to the potential for falsely elevated results. Performed By: #### L IP, MG, TROPHS, CK, LAC, GFR, CO, CMP ####Abbey [address] [place], [place] [address] BUN/Creatinine Ratio 12 ratio Normal 7-27 [facility] ([place]) Comment on above: Performed By: #### L IP, MG, TROPHS, CK, LAC, GFR, CO, CMP ####Abbe[address]oli [address] [place], [place] [address] Calcium [Mass/Vol] 9.4 mg/dL Normal 8.4-10.2 [facility] ([place]) Comment on above: Performed By: #### L IP, MG, TROPHS, CK, LAC, GFR, CO, CMP ####Abbey [address] [place], [place] [address] Chloride [Moles/Vol] 104 mmol/L Normal 98-107 [facility] ([place]) Comment on above: Performed By: #### L IP, MG, TROPHS, CK, LAC, GFR, CO, CMP ####Abbey [address] [place], [place] [address] CO2 [Moles/Vol] 22 mmol/L Low 23-31 [facility] ([place]) Comment on above: Performed By: #### L IP, MG, TROPHS, CK, LAC, GFR, CO, CMP ####Abbey [address] [place], [place] [address] Creatinine [Mass/Vol] 1.88 mg/dL High 0.70-1.30 [facility] ([place]) Comment on above: Performed By: #### L IP, MG, TROPHS, CK, LAC, GFR, CO, CMP ####Ab[address] [place], [place] [address] Electrolyte Balance 13.0 mEq/L Normal 4.0-15.0 [facility] ([place]) Comment on above: Performed By: #### L IP, MG, TROPHS, CK, LAC, GFR, CO, CMP ####[address]be[address] [place], [place] [address] Globulin 2.8 G/dL Normal [facility] ([place]) Comment on above: Performed By: #### L IP, MG, TROPHS, CK, LAC, GFR, CO, CMP ####Abbey [address] [place], [place] [address] Glucose [Mass/Vol] 205 mg/dL High 83-110 [facility] ([place]) Comment on above: Performed By: #### L IP, MG, TROPHS, CK, LAC, GFR, CO, CMP ####Abbey [address] [place], [place] [address] Potassium [Moles/Vol] 5.2 mmol/L High 3.5-5.1 [facility] ([place]) Comment on above: Performed By: #### L IP, MG, TROPHS, CK, LAC, GFR, CO, CMP ####Abbey [address] [place], [place] [address] Sodium [Moles/Vol] 139 mmol/L Normal 136-145 [facility] ([place]) Comment on above: Performed By: #### L IP, MG, TROPHS, CK, LAC, GFR, CO, CMP ####Abbey [address] [place], [place] [address] Total Protein 6.6 G/dL Normal 6.4-8.2 [facility] ([place]) Comment on above: Performed By: #### L IP, MG, TROPHS, CK, LAC, GFR, CO, CMP ####Abbey [address] [place], [place] [address] Urea nitrogen [Mass/Vol] 23 mg/dL High 7-18 [facility] ([place]) Comment on above: Performed By: #### L IP, MG, TROPHS, CK, LAC, GFR, CO, CMP ####Abbey [address] [place], [place] [address] [id number] 12-27-2021 Date of Onset [id number] Invalid Interpretation Code [facility] ([place]) Comment on above: Performed By: #### C OVD19, FLURSV #### [place] [address] Employed in Healthcare No [facility] ([place]) Comment on above: Performed By: #### C OVD19, FLURSV #### [place] [address] First Test No [facility] ([place]) Comment on above: Performed By: #### C OVD19, FLURSV #### [place] [address] Hospitalized No [facility] ([place]) Comment on above: Performed By: #### C OVD19, FLURSV #### [place] [address] ICU No [facility] ([place]) Comment on above: Performed By: #### C OVD19, FLURSV #### [place] [address] Not [facility] ([place]) Comment on above: Performed By: #### C OVD19, FLURSV #### [place] [address] Resides in Congregate Care Setting No [facility] ([place]) Comment on above: Performed By: #### C OVD19, FLURSV #### [place] [address] SARS-CoV-2 (COVID-19) RNA ANGELY+probe Ql (Unsp spec) Positive Abnormal Negative [facility] ([place]) Comment on above: Performed By: #### C OVD19, FLURSV #### [place] [address] SARS-CoV-2 (COVID-19) RNA ANGELY+probe Ql (Unsp spec) [facility] ([place]) Comment on above: Result Comment: Posi tive results are indicative of the presence of SARS-CoV-2 RNA; clinical correlation with patient history and other diagnostic information is necessary to determine patient infection status. Positive results do not rule out bacterial infection or co-infection with other viruses. The agent detected may not be the definite cause of disease. Laboratories within the [place] and its territories are required to [...] or from non-specific signals in the assay. [facility] SARS-CoV-2 Assay is a Real-Time reverse-transcriptase polymerase [...] Performed By: #### C OVD19, FLURSV #### [address] [address] Symptomatic as Defined by CDC No Normal [facility] ([place]) Comment on above: Performed By: #### C OVD19, FLURSV #### [address] [address] [address] HEAD OR BRAIN W/O CONTRAS Ton [...] 7:53:25 PM Ordering Provider: SREEDHAR LINARES Normal [facility] ([place]) Carboxyhemoglobinon 12-28-19 Carboxyhemoglobin (Bld) [Mass/Vol] 1.9 % 0.0-1.5 [facility] Work Phone: Comment on above: * NON-SMOKER RANGE 1 .6 - 5.0% * LIGHT SMOKER RANGE 5.1 - 9.0% * HEAVY SMOKER RANGE FLURSVon 12-27-2021 Flu A PCR (AO) Negative Normal Negative [facility] ([place]) Comment on above: Result Comment: Posi tive [...] virus (RSV) nucleic acid in nasopharyngeal swab (ANESTHESIOLOGISTS' ASSISTANT) specimens from patients with signs and symptoms of respiratory infection in conjunction with clinical and laboratory findings. The test is intended for use as an aid in the differential diagnosis of influenza A virus, influenza B virus, and RSV in humans and is not intended to detect influenza C. Performed By: #### C OVD19, FLURSV #### [place] [address] [place], [place] [address] Flu B PCR (AO) Negative Normal Negative [facility] ([place]) Comment on above: Result Comment: Posi tive [...] REPEAT COLLECTION AND TESTING IS RECOMMENDED. The [employer] Flu A/B & RSV Assay is a real-time polymerase chain reaction (PCR) based qualitative in vitro diagnostic test for the direct detection and differentiation of influenza A virus, influenza B virus, and respiratory syncytial virus (RSV) nucleic acid in nasopharyngeal swab (ANESTHESIOLOGISTS' ASSISTANT) specimens from patients with signs and symptoms of respiratory infection in conjunction with clinical and laboratory findings. The test is intended for use as an aid in the differential diagnosis of influenza A virus, influenza B virus, and RSV in humans and is not intended to detect influenza C. Performed By: #### C OVD19, FLURSV #### [place] [address] [place], [place] [address] RSV PCR (AO) Negative Normal Negative [facility] ([place]) Comment on above: Result Comment: Posi tive [...] REPEAT COLLECTION AND TESTING IS RECOMMENDED. The [employer] Flu A/B & RSV Assay is a real-time polymerase chain reaction (PCR) based qualitative in vitro diagnostic test for the direct detection and differentiation of influenza A virus, influenza B virus, and respiratory syncytial virus (RSV) nucleic acid in nasopharyngeal swab (ANESTHESIOLOGISTS' ASSISTANT) specimens from patients with signs and symptoms of respiratory infection in conjunction with clinical and laboratory findings. The test is intended for use as an aid in the differential diagnosis of influenza A virus, influenza B virus, and RSV in humans and is not intended to detect influenza C. Performed By: #### C OVD19, FLURSV #### Abbey [address] [address] INR in Blood by Coagulation assayon 12-27-2021 INR Coag (Bld) [Relative time] 2.4 {INR} [facility] Work Phone: LABORATORYOrdered By: Ramiro Rascon [...] AO Auto Urine SS SARS-CoV-2 (COVID-19) RNA NAGELY+probe Ql (Unsp spec) Positive results are indicative of the presence of SARS-CoV-2 RNA; clinical correlation with patient history and other diagnostic information is necessary to determine patient infection status. Positive results do not rule out bacterial infection or co-infection with other viruses. The agent detected may not be the definite cause of disease. Laboratories within the [facility] and its territories are required to report [...] Lactic Acid Lvl 3.0 mmol/L High 0.4-2.0 [facility] ([place]) Comment on above: Performed By: #### L AC #### Abbey [address] [address] Lactic Acid Lvl 4.6 mmol/L High 0.4-2.0 [facility] ([place]) Comment on above: Performed By: #### L IP, MG, TROPHS, CK, LAC, GFR, CO, CMP ####Abbey [address] [place], [place] [address] LIPon 12-27-2021 Lipase Level 67 U/L Low 73-393 [facility] ([place]) Comment on above: Performed By: #### L IP, MG, TROPHS, CK, LAC, GFR, CO, CMP ####Abbey [address] [place], [place] [address] Laboratory - Chemistry and C hemistry - challengeon 12-27-2021 ALP [Catalytic activity/Vol] 89 U/L 45-117 [facility] Work Phone: ALT [Catalytic activity/Vol] 26 U/L 16-61 [facility] Work Phone: Globulin (S) [Mass/Vol] 3.1 g/dL 2.2-4.2 [facility] Work Phone: Laboratory - Coagulationon 0 12-27-2021 PT Coag (PPP) [Time] 25.5 s 11.7-14.[address] [facility] Work Phone: MGon 12-27-2021 Magnesium [Mass/Vol] 1.3 mg/dL Low 1.8-2.4 [facility] ([place]) Comment on above: Performed By: #### L IP, MG, TROPHS, CK, LAC, GFR, CO, CMP ####Abbey [address] [address] PROon 12-27-2021 INR Coag (PPP) [Relative time] 2.7 {INR} High 0.9-1.2 [facility] ([place]) Comment on above: Result Comment: Tony dard [...] Performed By: #### P RO #### Abbey [address] [address] PT Coag (PPP) [Time] 31.6 s High 9.7-14.3 [facility] ([place]) Comment on above: Performed By: #### P RO #### [address] [address] Serum or plasma albumin antoine urement (mass/volume)on 12-27-2021 Albumin [Mass/Vol] 3.2 g/dL 3.2-5.0 [facility]: Serum or plasma albumin/glob ulin mass ratioon 12-27-2021 Albumin/Globulin [Mass ratio] 1.0 {ratio} 0.9-2.4 [facility] Work Phone: TROPHSon 12-27-2021 Troponin I High Sensitivity 11.1 ng/L Normal 0.0-76.2 [facility] ([place]) Comment on above: Performed By: #### L IP, MG, TROPHS, CK, LAC, GFR, CO, CMP #### [place] [address] [place], [place] [address] Thin prep Papanicolaou smear with manual screeningon 12-27-2021 Thin prep Papanicolaou smear with manual screening 44 U/L 15-37 [facility] Work Phone: XR CHEST 1 VIEWon [...] 6:23:59 PM Ordering Provider: SREEDHAR LINARES Normal [facility] ([place]) Absolute lymphocyte counton 12-06-2021 Lymphocytes Auto (Unsp spec) [#/Vol] 0.42 10*3/uL 0.83-4.51 [facility] Work Phone: Basophil percentageon 2021 Basophils/100 WBC (Bld) 0.4 % 0-1 [facility] Work Phone: Chloride [Moles/Vol] 105 mmol/L 98-107 [facility] Work Phone: Eosinophils/100 WBC (Bld) 2.3 % 0-5 [facility] Work Phone: Glucose [Mass/Vol] 138 mg/dL 74-106 [place] Work Phone: Comment on above: Fasting Glucose resu lt greater than or equal to 126 mg/dL suggests DIABETES MELLITUS per A.D.A. criteria. Neutrophils (Bld) [#/Vol] 7.5 10*3/uL 2.0-7.7 [facility] Work Phone: Neutrophils/100 WBC (Bld) 81.2 % 47-70 [facility] Work Phone: Potassium [Moles/Vol] 3.7 mmol/L 3.5-5.1 [facility] Work Phone: [phone] Sodium [Moles/Vol] 138 mmol/L 136-145 [place] Work Phone: WBC (Bld) [#/Vol] 9.3 10*3/uL 4.4-11.0 [facility] Work Phone: Basophil percentage 0-5 SEEN /hpf 0-5 [facility] Work Phone: Bilirubin Test strip Ql (U)o n 12-06-2021 Bilirubin Ql (U) Negative Negative [facility] Work Phone: Blood erythrocytes count (nu mber/volume)on 12-06-2021 RBC (Bld) [#/Vol] 5.07 10*6/uL 4.6-6.2 [facility] Work Phone: Blood hemoglobin measurement (mass/volume)on 12-06-2021 Hemoglobin (Bld) [Mass/Vol] 13.8 g/dL 13.0-16. 5 [facility] Work Phone: [phone] Blood lymphocytes/100 leukoc yteson 12-06-2021 Lymphocytes/100 WBC (Bld) 4.5 % 19-41 [facility] Work Phone: Blood manual differential co mment interpretation (narrative result)on 12-06-2021 Manual differential comment Ori (Bld) [Interp] SCANNED [facility] Work Phone: Comment on above: LYMPHOPENIA NOTED Blood monocytes/100 leukocyt eson 12-06-2021 Monocytes/100 WBC (Bld) 8.6 % 0-10 [facility] Work Phone: Blood platelet mean volumeon 12-06-2021 Platelet mean volume (Bld) [Entitic vol] 9.2 fL 6.2-12.0 [facility] Work Phone: Determination of erythrocyte mean corpuscular volume (MCV)on 12-06-2021 MCV (RBC) [Entitic vol] 83.0 fL 80-94 [facility] Work Phone: Hematocrit Auto (Bld) [Volum e fraction]on 12-06-2021 Hematocrit (Bld) [Volume fraction] 42.1 % 40-54 [facility] Work Phone: INR in Blood by Coagulation assayon 12-06-2021 INR Coag (Bld) [Relative time] 3.3 {INR} [facility] Work Phone: Ketones Test strip Ql (U)on 12-06-2021 Ketones Ql (U) 5 mg/dl Negative [facility] Work Phone: Laboratory - Chemistry and C hemistry - challengeon 12-06-2021 CO2 [Moles/Vol] 24.0 mmol/L 21.0-32.0 [facility] Work Phone: Urea nitrogen/Creatinine [Mass ratio] 14.2 mg/mg 10-20 [facility] Work Phone: Laboratory - Coagulationon 0 12-06-2021 PT Coag (PPP) [Time] 32.9 s 11.7-14.9 [facility] Work Phone: Laboratory - Hematology and Cell countson 12-06-2021 Erythrocyte distribution width (RBC) [Entitic vol] 42.4 fL 35.1-43.9 [place] Work Phone: Erythrocyte distribution width (RBC) [Ratio] 14.0 % 11.6-14.6 [facility] Work Phone: Immature granulocytes/100 WBC (Bld) 3.000 % 0.0-0.9 [facility] Work Phone: Comment on above: IG% - Immature Granu locytes (promyelocytes, myelocytes and metamyelocytes) > 1% indicates that a LEFT SHIFT is Present. MCH (RBC) [Entitic mass] 27.2 pg 27.0-32.0 [facility] Work Phone: Nucleated RBC/100 WBC (Bld) [Ratio] 0 % 0-5 [facility] Work Phone: MCHC Auto (RBC) [Mass/Vol]on 12-06-2021 MCHC (RBC) [Mass/Vol] 32.8 g/dL 32-36 [facility] Work Phone: Mucus LM Ql (Urine sed)on Mucus Ql (Urine sed) 0 SEEN /hpf [facility] Work Phone: Nitrite Test strip Ql (U)on 12-06-2021 Nitrite Ql (U) Negative Negative [facility] Work Phone: No Panel Informationon 12-06 Estimated Creatinine Clearance Calc 61.03 ml/min [facility] Work Phone: Estimated GFR (MDRD) Amer 76 mL/min >60 [facility] Work Phone: Comment on above: GFR Calc Estimated GFR (MDRD) Non-Af Amer 63 mL/min >60 [facility] Work Phone: Comment on above: Non- GFR Calc Troponin I High Sensitivity 5 pg/mL 3.0-78.0 [facility] Work Phone: Comment on above: Please Note: New Thania t Units and Gender Specific Reference Ranges. For more information see Policy Stat Procedure [place] High Sensitivity Troponin (TNIH) and attachments. SARS-CoV-2 & FLU Antigen (Rapid) SARS-CoV-2 (COVID 19) [facility] Work Phone: Platelets bldon 12-06-2021 Platelets (Bld) [#/Vol] 229 10*3/uL 150-450 [facility] Work Phone: Protein Test strip Ql (U)on 12-06-2021 Protein Ql (U) 30 mg/dl Negative [facility] Work Phone: Serum or plasma calcium antoine urement (mass/volume)on 12-06-2021 Calcium [Mass/Vol] 8.9 mg/dL 8.5-10.1 [facility] Work Phone: Serum or plasma creatinine m easurement (mass/volume)on 12-06-2021 Creatinine [Mass/Vol] 1.20 mg/dL 0.70-1.30 [facility] Work Phone: Comment on above: The validity of the calculated GFR & GFRAA in patients over 70 years has not been determined. Clinical correlation is essential. Serum or plasma urea nitroge n measurement (mass/volume)on 12-06-2021 Urea nitrogen [Mass/Vol] 17 mg/dL 7-18 [facility] Work Phone: Squamous epithelial cells de tection in urine sediment by light microscopyon 12-06-2021 Epithelial cells.squamous LM Ql (Urine sed) 0-5 SEEN /hpf 0-5 [facility] Work Phone: Thin prep Papanicolaou smear with manual screeningon 12-06-2021 Thin prep Papanicolaou smear with manual screening 9 5-15 [facility] Work Phone: Urine blood detectionon 11-13 RBC Ql (U) 10 /ul Negative [facility] Work Phone: RBC Ql (U) 0 SEEN /hpf 0-5 [facility] Work Phone: Urine clarityon 12-06-2021 Clarity (U) Clear Clear [facility] Work Phone: Urine color determinationon 12-06-2021 Color (U) Yellow Yellow [facility] Work Phone: Urine glucose detectionon Glucose Ql (U) 100 mg/dl Normal [facility] Work Phone: Urine leukocyte esterase det ection by dipstickon 12-06-2021 Leukocyte esterase Test strip Ql (U) 25 /ul Negative [facility] Work Phone: Urine pHon 12-06-2021 pH (U) 5.0 [pH] 5.0 - 8.0 [facility] Work Phone: Urine sediment bacteria coun t by microscopy (number/high power field)on 12-06-2021 Bacteria LM.HPF (Urine sed) [#/Area] 1 /[HPF] None Seen [facility] Work Phone: Urine specific gravity measu rementon 12-06-2021 Specific gravity (U) [Rel density] 1.025 1.002-1.03 0 [facility] Work Phone: Urobilinogen Auto test strip Ql (U)on 12-06-2021 Urobilinogen Ql (U) 1 mg/dl Normal [facility] Work Phone: GLUCOSE, BLOOD (POC)on 10-10 Glucose [Mass/Vol] 121 mg/dL Abnormal 74 - 99 mg/dL [facility] Glucose [Mass/Vol] 144 mg/dL Abnormal 74 - 99 mg/dL [facility] No Panel Informationon 10-10 [facility] CTA CHEST (GATED) W IVCONon 07-27-2021 CTA CHEST (GATED) W IVCON * * *Final Rep ort* * * DATE OF EXAM: Jul 27 2021 11:00AM [facility] [place] CHEST [...] The arch vessel branching pattern is normal. 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 Cholelithiasis without findings of acute cholecystitis. Replenisher: BLAKE Transcribe Date/Time: Jul 27 2021 11:21A Dictated by : BALBIR RAYGOZA MD This examination was interpreted and the report reviewed and electronically signed by: SADE (more content not included)... Normal [facility] - Microbiology an d Antimicrobial susceptibility Bacteria identified Cx Nom (Bld) No growth in 5 days. [facility] Work Phone: No Panel Information SARS-CoV-2 & FLU Antigen (Rapid) SARS-CoV-2 (COVID 19) [facility] Work Phone: Vital Signs Date Time Vital Sign Value Performing Clinician Scott quinn 03-22-2025 09:51-0400 Body height 182.[address] Luis Caldera MD Work Phone: [facility] 03-22-2025 09:51-0400 Body mass index (BMI) [Ratio] 31.8 kg/m2 Dr. Luis Caldera MD Work Phone: 9(292)422-420194 [place] [address] 03-22-2025 09:51-0400 Body weight 106.[address] Luis Caldera MD Work Phone: 2(521)998-918694 [place] [address] 03-22-2025 09:51-0400 Diastolic blood pressure 64 mm[Hg] Dr. Luis Caldera MD Work Phone: 6(861)587-753594 [place] [address] 03-22-2025 09:51-0400 Heart rate 60 /min Dr. Luis Caldera MD Work Phone: 4(702)867-945594 [place] [address] 03-22-2025 09:51-0400 Respiratory rate 16 /min Dr. Luis Caldera MD Work Phone: 8(097)188-931294 [place] [address] 03-22-2025 09:51-0400 Systolic blood pressure 104 mm[Hg] Dr. Luis Caldera MD Work Phone: 2(756)281-734394 [place] [address] 03-03-2025 15:37-0400 Body temperature 97.2 [degF] Dr. Luis Caldera MD Work Phone: 4(365)607-791494 [place] [address] 03-03-2025 15:37-0400 Diastolic blood pressure 77 mm[Hg] Dr. Luis Caldera MD Work Phone: 8(409)590-902994 [place] [address] 03-03-2025 15:37-0400 Heart rate 63 /min Dr. Luis Caldera MD Work Phone: 3(718)133-849094 [place] [address] 03-03-2025 15:37-0400 Respiratory rate 16 /min Dr. Luis Caldera MD Work Phone: 3(067)803-297894 [place] [address] 03-03-2025 15:37-0400 SaO2% (BldA) [Mass fraction] 99 % Dr. Luis Caldera MD Work Phone: 9(251)802-444994 [place] [address] 03-03-2025 15:37-0400 Systolic blood pressure 141 mm[Hg] Dr. Luis Caldera MD Work Phone: 0(105)359-952694 [place] [address] 02-28-2025 00:00-0400 Heart rate 83 /min Dr. Luis Caldera MD Work Phone: 7(077)339-022294 [place] [address] 02-28-2025 00:00-0400 Respiratory rate 14 /min Dr. Luis Caldera MD Work Phone: 0(968)206-470094 [place] [address] 02-28-2025 00:00-0400 SaO2% (BldA) [Mass fraction] 96 % Dr. Luis Caldera MD Work Phone: 1(283)482-048594 [place] [address] 02-27-2025 22:00-0400 Diastolic blood pressure 76 mm[Hg] Dr. Luis Caldera MD Work Phone: 1(666)140-558094 [place] [address] 02-27-2025 22:00-0400 Systolic blood pressure 144 mm[Hg] Dr. Luis Caldera MD Work Phone: 9(228)678-729394 [place] [address] 02-27-2025 21:35-0400 Body temperature 98.2 [degF] Dr. Luis Caldera MD Work Phone: 9(564)707-826394 [place] [address] 02-27-2025 18:27-0400 Body height 182.[address] Luis Caldera MD Work Phone: 7(743)525-292594 [place] [address] 02-27-2025 18:27-0400 Body mass index (BMI) [Ratio] 34.1 kg/m2 Dr. Luis Caldera MD Work Phone: 4(642)380-897294 [place] [address] 02-27-2025 18:27-0400 Body weight 114.[address] Luis Caldera MD Work Phone: 2(995)571-979694 [place] [address] 02-11-2025 15:20-0400 Body temperature 98.4 [degF] Dr. Luis Caldera MD Work Phone: 5(546)723-795594 [place] [address] 02-11-2025 15:20-0400 Diastolic blood pressure 64 mm[Hg] Dr. Luis Caldera MD Work Phone: 0(401)584-468194 [place] [address] 02-11-2025 15:20-0400 Heart rate 61 /min Dr. Luis Caldera MD Work Phone: 5(920)680-780894 [place] [address] 02-11-2025 15:20-0400 Inhaled oxygen flow rate 2 L/min Dr. Luis Caldera MD Work Phone: 4(287)093-217694 [place] [address] 02-11-2025 15:20-0400 Respiratory rate 18 /min Dr. Luis Caldera MD Work Phone: 6(477)528-258994 [place] [address] 02-11-2025 15:20-0400 SaO2% (BldA) [Mass fraction] 96 % Dr. Luis Caldera MD Work Phone: 2(050)033-809294 [place] [address] 02-11-2025 15:20-0400 Systolic blood pressure 132 mm[Hg] Dr. Luis Caldera MD Work Phone: 3(791)949-804594 [place] [address] 02-11-2025 05:55-0400 Body mass index (BMI) [Ratio] 34.8 kg/m2 Dr. Luis Caldera MD Work Phone: 3(558)829-076694 [place] [address] 02-11-2025 05:55-0400 Body weight 116.[address] Luis Caldera MD Work Phone: 8(703)734-593694 [place] [address] 02-08-2025 12:01-0400 Body height 182.[address] Luis Caldera MD Work Phone: 0(115)633-251094 [place] [address] 02-03-2025 00:00-0400 Body temperature 99 [degF] Dr. Luis Caldera MD Work Phone: 1(172)367-004394 [place] [address] 02-03-2025 00:00-0400 Diastolic blood pressure 52 mm[Hg] Dr. Luis Caldera MD Work Phone: 1(912)930-181394 [place] [address] 02-03-2025 00:00-0400 Heart rate 68 /min Dr. Luis Caldera MD Work Phone: 1(501)329-831994 [place] [address] 02-03-2025 00:00-0400 Respiratory rate 20 /min Dr. Luis Caldera MD Work Phone: 4(887)806-232394 [place] [address] 02-03-2025 00:00-0400 SaO2% (BldA) [Mass fraction] 97 % Dr. Luis Caldera MD Work Phone: 4(893)684-062594 [place] [address] 02-03-2025 00:00-0400 Systolic blood pressure 127 mm[Hg] Dr. Luis Caldera MD Work Phone: 1(570)028-413594 [place] [address] 02-02-2025 19:42-0400 Body height 182.[address] Luis Caldera MD Work Phone: 2(543)948-236194 [place] [address] 02-02-2025 19:42-0400 Body mass index (BMI) [Ratio] 35.7 kg/m2 Dr. Luis Caldera MD Work Phone: 9(486)491-543894 [place] [address] 02-02-2025 19:42-0400 Body weight 119.[address] Luis Caldera MD Work Phone: 0(986)952-715694 [place] [address] 02-02-2025 19:42-0400 Inhaled oxygen flow rate 15 L/min Dr. Luis Caldera MD Work Phone: 1(412)082-805994 [place] [address] 10-12-2024 13:12-0400 Body height 182.[address] Luis Caldera MD Work Phone: 5(220)358-100794 [place] [address] 10-12-2024 13:12-0400 Body mass index (BMI) [Ratio] 32.3 kg/m2 Dr. Luis Caldera MD Work Phone: 2(427)064-257794 [place] [address] 10-12-2024 13:12-0400 Body weight 107.[address] Luis Caldera MD Work Phone: 4(284)885-818694 [place] [address] 10-12-2024 13:12-0400 Diastolic blood pressure 57 mm[Hg] Dr. Luis Caldera MD Work Phone: 0(895)060-031194 [place] [address] 10-12-2024 13:12-0400 Heart rate 65 /min Dr. Luis Caldera MD Work Phone: 5(065)699-680694 [place] [address] 10-12-2024 13:12-0400 Respiratory rate 18 /min Dr. Luis Caldera MD Work Phone: 3(632)190-508394 [place] [address] 10-12-2024 13:12-0400 SaO2% (BldA) [Mass fraction] 99 % Dr. Luis Caldera MD Work Phone: 5(280)808-046194 [place] [address] 10-12-2024 13:12-0400 Systolic blood pressure 117 mm[Hg] Dr. Luis Caldera MD Work Phone: 9(410)932-226894 [place] [address] 10-07-2023 14:18-0400 Body height 182.[address] Luis Caldera Work Phone: 1(759)183-335394 [place] [address] 10-07-2023 14:18-0400 Body mass index (BMI) [Ratio] 29.8 kg/m2 Dr. Luis Caldera Work Phone: 0(945)327-887094 [place] [address] 10-07-2023 14:18-0400 Body weight 99.[address] Luis Caldera Work Phone: 1(882)125-223994 [place] [address] 10-07-2023 14:18-0400 Diastolic blood pressure 66 mm[Hg] Dr. Luis Caldera Work Phone: 7(964)224-306694 [place] [address] 10-07-2023 14:18-0400 Heart rate 67 /min Dr. Luis Caldera Work Phone: 6(553)793-469994 [place] [address] 10-07-2023 14:18-0400 Respiratory rate 16 /min Dr. Luis Caldera Work Phone: 7(164)623-509494 [place] [address] 10-07-2023 14:18-0400 Systolic blood pressure 112 mm[Hg] Dr. Luis Caldera Work Phone: 5(558)194-496294 [place] [address] 06-03-2023 12:50-0500 Body temperature 97.2 [degF] Dr. Luis Caldera Work Phone: 8(567)340-999094 [place] [address] 06-03-2023 12:50-0500 Diastolic blood pressure 90 mm[Hg] Dr. Luis Caldera Work Phone: 3(577)743-435594 [place] [address] 06-03-2023 12:50-0500 Heart rate 85 /min Dr. Luis Caldera Work Phone: 9(779)547-374094 [place] [address] 06-03-2023 12:50-0500 Respiratory rate 16 /min Dr. Luis Caldera Work Phone: [facility] 06-03-2023 12:50-0500 SaO2% (BldA) [Mass fraction] 97 % Dr. Luis Caldera Work Phone: [facility] 06-03-2023 12:50-0500 Systolic blood pressure 134 mm[Hg] Dr. Luis Caldera Work Phone: [facility] 06-03-2023 11:45-0500 Body height 182.[address] Luis Caldera Work Phone: [facility] 06-03-2023 11:45-0500 Body mass index (BMI) [Ratio] 30.5 kg/m2 Dr. Luis Caldera Work Phone: [facility] 06-03-2023 11:45-0500 Body weight 102.[address] Luis Caldera Work Phone: [facility] 03-27-2023 13:51-0400 Body height 185.[address] Maggy Roberts Work Phone: [facility] 03-27-2023 13:51-0400 Body mass index (BMI) [Ratio] 34.7 kg/m2 Dr. Maggy Roberts Work Phone: [facility] 03-27-2023 13:51-0400 Body weight 119.[address] Maggy Roberts Work Phone: [facility] 03-27-2023 13:51-0400 Diastolic blood pressure 78 mm[Hg] Dr. Maggy Roberts Work Phone: [facility] 03-27-2023 13:51-0400 Heart rate 97 /min Dr. Maggy Roberts Work Phone: [facility] 03-27-2023 13:51-0400 Respiratory rate 18 /min Dr. Maggy Roberts Work Phone: [facility] 03-27-2023 13:51-0400 SaO2% (BldA) [Mass fraction] 98 % Dr. Maggy Roberts Work Phone: 0(029)212-560092 [place] [address] 03-27-2023 13:51-0400 Systolic blood pressure 118 mm[Hg] Dr. Maggy Roberts Work Phone: 4(172)778-431992 [place] [address] 02-13-2023 15:02-0400 Body temperature 97 [degF] Dr. Maggy Roberts Work Phone: 8(791)189-578292 [place] [address] 02-13-2023 15:02-0400 Diastolic blood pressure 70 mm[Hg] Dr. Maggy Roberts Work Phone: 8(910)224-908892 [place] [address] 02-13-2023 15:02-0400 Heart rate 82 /min Dr. Maggy Roberts Work Phone: 0(943)283-819992 [place] [address] 02-13-2023 15:02-0400 Respiratory rate 16 /min Dr. Maggy Roberts Work Phone: 3(902)918-453992 [place] [address] 02-13-2023 15:02-0400 SaO2% (BldA) [Mass fraction] 100 % Dr. Maggy Roberts Work Phone: 6(844)079-640292 [place] [address] 02-13-2023 15:02-0400 Systolic blood pressure 134 mm[Hg] Dr. Maggy Roberts Work Phone: 1(602)448-397392 [place] [address] 02-12-2023 13:33-0400 Body height 185.[address] Maggy Roberts Work Phone: 5(765)987-027992 [place] [address] 02-12-2023 13:33-0400 Body weight 102.[address] Maggy Roberts Work Phone: 1(972)692-258192 [place] [address] 02-11-2023 20:45-0400 Body mass index (BMI) [Ratio] 30 kg/m2 Dr. Maggy Roberts Work Phone: 2(874)894-346492 [place] [address] 02-11-2023 18:53-0400 Body temperature 99.1 [degF] Dr. Maggy Roberts Work Phone: 0(198)401-107792 [place] [address] 02-11-2023 18:53-0400 Diastolic blood pressure 71 mm[Hg] Dr. Maggy Roberts Work Phone: 7(717)397-868473 [place] [address] 02-11-2023 18:53-0400 Heart rate 88 /min Dr. Maggy Roberts Work Phone: 5(418)281-984773 [place] [address] 02-11-2023 18:53-0400 Respiratory rate 18 /min Dr. Maggy Roberts Work Phone: 6(808)704-126773 [place] [address] 02-11-2023 18:53-0400 SaO2% (BldA) [Mass fraction] 93 % Dr. Maggy Roberts Work Phone: 9(152)720-672292 [place] [address] 02-11-2023 18:53-0400 Systolic blood pressure 129 mm[Hg] Dr. Maggy Roberts Work Phone: 3(059)772-713692 [place] [address] 02-11-2023 16:21-0400 Body height 185.[address] Maggy Roberts Work Phone: 1(859)266-033373 [place] [address] 02-11-2023 00:58-0400 Body temperature 98.4 [degF] Dr. Maggy Roberts Work Phone: 6(521)933-898173 [place] [address] 02-11-2023 00:58-0400 Diastolic blood pressure 62 mm[Hg] Dr. Maggy Roberts Work Phone: 4(503)993-075436 [address] 02-11-2023 00:58-0400 Heart rate 74 /min Dr. Maggy Roberts Work Phone: 4(023)177-948173 [place] [address] 02-11-2023 00:58-0400 Respiratory rate 26 /min Dr. Maggy Roberts Work Phone: 2(833)109-824673 [place] [address] 02-11-2023 00:58-0400 SaO2% (BldA) [Mass fraction] 95 % Dr. Maggy Roberts Work Phone: 9(213)354-391173 [place] [address] 02-11-2023 00:58-0400 Systolic blood pressure 124 mm[Hg] Dr. Maggy Roberts Work Phone: [facility] 02-10-2023 21:23-0400 Body height 185.[address] Maggy Roberts Work Phone: [facility] 02-10-2023 21:23-0400 Body mass index (BMI) [Ratio] 30.9 kg/m2 Dr. Maggy Roberts Work Phone: 8(435)724-223836 [address] 02-10-2023 21:23-0400 Body weight 106.[address] Maggy Roberts Work Phone: 4(977)866-415673 [place] [address] 02-05-2023 15:10-0400 Body temperature 97.4 [degF] Dr. Maggy Roberts Work Phone: 8(720)850-897992 [place] [address] 02-05-2023 15:10-0400 Diastolic blood pressure 77 mm[Hg] Dr. Maggy Roberts Work Phone: 0(011)975-561792 [place] [address] 02-05-2023 15:10-0400 Heart rate 85 /min Dr. Maggy Roberts Work Phone: 6(938)296-775973 [place] [address] 02-05-2023 15:10-0400 Respiratory rate 18 /min Dr. Maggy Roberts Work Phone: 9(076)406-801492 [place] [address] 02-05-2023 15:10-0400 SaO2% (BldA) [Mass fraction] 94 % Dr. Maggy Roberts Work Phone: 6(732)287-515073 [place] [address] 02-05-2023 15:10-0400 Systolic blood pressure 131 mm[Hg] Dr. Maggy Roberts Work Phone: [facility] 02-05-2023 05:36-0400 Body mass index (BMI) [Ratio] 30.6 kg/m2 Dr. Maggy Roberts Work Phone: 6(546)020-628773 [place] [address] 02-05-2023 05:36-0400 Body weight 105.[address] Maggy Roberts Work Phone: 4(243)405-236036 [address] 02-01-2023 00:17-0400 Inhaled oxygen flow rate 2 L/min Dr. Maggy Roberts Work Phone: 0(576)380-936173 [place] [address] 01-27-2023 21:04-0400 Body temperature 98.1 [degF] Dr. Maggy Roberts Work Phone: 9(916)261-127592 [place] [address] 01-27-2023 21:04-0400 Diastolic blood pressure 48 mm[Hg] Dr. Maggy Roberts Work Phone: 0(627)003-139292 [place] [address] 01-27-2023 21:04-0400 Heart rate 79 /min Dr. Maggy Roberts Work Phone: 7(487)390-382292 [place] [address] 01-27-2023 21:04-0400 Respiratory rate 16 /min Dr. Maggy Roberts Work Phone: 6(183)879-841892 [place] [address] 01-27-2023 21:04-0400 SaO2% (BldA) [Mass fraction] 94 % Dr. Maggy Roberts Work Phone: 3(449)916-591692 [place] [address] 01-27-2023 21:04-0400 Systolic blood pressure 111 mm[Hg] Dr. Maggy Roberts Work Phone: 6(609)373-300192 [place] [address] 01-27-2023 17:58-0400 Body height 185.[address] Maggy Roberts Work Phone: 3(677)651-175992 [place] [address] 01-27-2023 17:58-0400 Body mass index (BMI) [Ratio] 30.5 kg/m2 Dr. Maggy Roberts Work Phone: 3(301)536-302592 [place] [address] 01-27-2023 17:58-0400 Body weight [address] Maggy Roberts Work Phone: 9(800)174-826392 [place] [address] 01-26-2023 14:13-0400 Body temperature 98.6 [degF] Dr. Maggy Roberts Work Phone: 0(009)079-605292 [place] [address] 01-26-2023 14:13-0400 Diastolic blood pressure 46 mm[Hg] Dr. Maggy Roberts Work Phone: 2(369)220-356892 [place] [address] 01-26-2023 14:13-0400 Heart rate 60 /min Dr. Maggy Roberts Work Phone: [facility] 01-26-2023 14:13-0400 Respiratory rate 18 /min Dr. Maggy Roberts Work Phone: 5(361)544-564792 [place] [address] 01-26-2023 14:13-0400 SaO2% (BldA) [Mass fraction] 97 % Dr. Maggy Roberts Work Phone: 5(609)357-127092 [place] [address] 01-26-2023 14:13-0400 Systolic blood pressure 134 mm[Hg] Dr. Maggy Roberts Work Phone: 1(655)499-086292 [place] [address] 01-25-2023 05:27-0400 Body mass index (BMI) [Ratio] 28.2 kg/m2 Dr. Maggy Roberts Work Phone: 1(543)860-187092 [place] [address] 01-25-2023 05:27-0400 Body weight 96.[address] Maggy Roberts Work Phone: 6(634)282-023692 [place] [address] 01-24-2023 16:00-0400 Inhaled oxygen flow rate 93 L/min Dr. Maggy Roberts Work Phone: 3(694)156-585992 [place] [address] 01-23-2023 14:42-0400 Body height 185.[address] Maggy Roberts Work Phone: 2(217)238-711092 [place] [address] 01-21-2023 11:32-0400 Body temperature 97.8 [degF] Dr. Maggy Roberts Work Phone: 0(813)240-924792 [place] [address] 01-21-2023 11:32-0400 Diastolic blood pressure 55 mm[Hg] Dr. Maggy Roberts Work Phone: 6(022)816-156573 [place] [address] 01-21-2023 11:32-0400 Heart rate 83 /min Dr. Maggy Roberts Work Phone: 8(506)467-430792 [place] [address] 01-21-2023 11:32-0400 Respiratory rate 23 /min Dr. Maggy Roberts Work Phone: 9(418)424-120836 [address] 01-21-2023 11:32-0400 SaO2% (BldA) [Mass fraction] 93 % Dr. Maggy Roberts Work Phone: 0(195)945-244673 [place] [address] 01-21-2023 11:32-0400 Systolic blood pressure 133 mm[Hg] Dr. Maggy Roberts Work Phone: 5(505)053-020992 [place] [address] 01-21-2023 08:21-0400 Body height 185.[address] Maggy Roberts Work Phone: 0(318)365-011592 [place] [address] 01-21-2023 08:21-0400 Body mass index (BMI) [Ratio] 28.9 kg/m2 Dr. Maggy Roberts Work Phone: 8(519)888-257992 [place] [address] 01-21-2023 08:21-0400 Body weight 99.[address] Maggy Roberts Work Phone: 5(573)522-414992 [place] [address] 01-08-2023 11:58-0400 Body temperature 98.3 [degF] Dr. Maggy Roberts Work Phone: 5(759)793-215092 [place] [address] 01-08-2023 11:58-0400 Diastolic blood pressure 70 mm[Hg] Dr. Maggy Roberts Work Phone: 0(577)993-525092 [place] [address] 01-08-2023 11:58-0400 Heart rate 60 /min Dr. Maggy Roberts Work Phone: 6(430)386-267992 [place] [address] 01-08-2023 11:58-0400 Respiratory rate 14 /min Dr. Maggy Roberts Work Phone: 4(413)030-736192 [place] [address] 01-08-2023 11:58-0400 SaO2% (BldA) [Mass fraction] 96 % Dr. Maggy Roberts Work Phone: 0(880)558-378792 [place] [address] 01-08-2023 11:58-0400 Systolic blood pressure 108 mm[Hg] Dr. Maggy Roberts Work Phone: 4(754)254-118392 [place] [address] 01-08-2023 06:00-0400 Body mass index (BMI) [Ratio] 38.4 kg/m2 Dr. Maggy Roberts Work Phone: 6(811)253-068592 [place] [address] 01-08-2023 06:00-0400 Body weight [address] Maggy Roberts Work Phone: [facility] 01-04-2023 17:25-0400 Diastolic blood pressure 63 mm[Hg] [facility] 01-04-2023 17:25-0400 Heart rate 63 /min [facility] 01-04-2023 17:25-0400 Respiratory rate 12 /min [facility] 01-04-2023 17:25-0400 SaO2% (BldA) [Mass fraction] 98 % [facility] 01-04-2023 17:25-0400 Systolic blood pressure 138 mm[Hg] [facility] 01-04-2023 16:19-0400 Body temperature 96.9 [degF] [facility] 01-04-2023 11:15-0400 Body mass index (BMI) [Ratio] 30.4 kg/m2 [facility] 01-04-2023 11:15-0400 Body weight 104.7 kg [facility] 01-04-2023 10:59-0400 Body height 185.42 cm [facility] 09-07-2022 11:01-0500 Body height 185.4 cm Jojo Kaur MD Work Phone: [facility] 09-07-2022 11:01-0500 Body weight 113.4 kg Jojo Kaur MD Work Phone: [facility] 09-07-2022 11:01-0500 Diastolic blood pressure 57 mm[Hg] Jojo Kaur MD Work Phone: [facility] 09-07-2022 11:01-0500 Heart rate 64 /min Jojo Kaur MD Work Phone: [facility] 09-07-2022 11:01-0500 Respiratory rate 16 /min Jojo Kaur MD Work Phone: [facility] 09-07-2022 11:01-0500 SaO2% (BldA) [Mass fraction] 99 % Jojo Kaur MD Work Phone: [facility] 09-07-2022 11:01-0500 Systolic blood pressure 124 mm[Hg] Jojo Kaur MD Work Phone: [facility] 08-09-2022 16:35-0500 Body weight 113.4 kg Abdulaziz Caldera MD Work Phone: [facility] 08-09-2022 16:35-0500 Diastolic blood pressure 62 mm[Hg] Abdulaziz Caldera MD Work Phone: [facility] 08-09-2022 16:35-0500 Heart rate 64 /min Abdulaziz Caldera MD Work Phone: [facility] 08-09-2022 16:35-0500 Respiratory rate 16 /min Abdulaziz Caldera MD Work Phone: [facility] 08-09-2022 16:35-0500 SaO2% (BldA) [Mass fraction] 96 % Abdulaziz Caldera MD Work Phone: [facility] 08-09-2022 16:35-0500 Systolic blood pressure 112 mm[Hg] Abdulaziz Caldera MD Work Phone: [facility] 07-11-2022 16:22-0500 Body temperature 97.9 [degF] Dr. Luis Caldera Work Phone: [facility] Work Phone: 07-11-2022 16:22-0500 Diastolic blood pressure 65 mm[Hg] Dr. Luis Caldera Work Phone: [facility] Work Phone: 07-11-2022 16:22-0500 Heart rate 75 /min Dr. Luis Caldera Work Phone: [facility] Work Phone: 07-11-2022 16:22-0500 Respiratory rate 17 /min Dr. Luis Caldera Work Phone: [facility] Work Phone: 07-11-2022 16:22-0500 SaO2% (BldA) [Mass fraction] 96 % Dr. Luis Caldera Work Phone: [facility] Work Phone: 07-11-2022 16:22-0500 Systolic blood pressure 114 mm[Hg] Dr. Luis Caldera Work Phone: [facility] Work Phone: 07-11-2022 03:04-0500 Body weight 114.[address] Luis Caldera Work Phone: [facility] Work Phone: 07-10-2022 14:29-0500 Body height 185.[address] Luis Caldera Work Phone: [facility] Work Phone: 07-10-2022 03:04-0500 Body mass index (BMI) [Ratio] 33.6 kg/m2 Dr. Luis Caldera Work Phone: [facility] Work Phone: 07-09-2022 21:17-0500 Inhaled oxygen flow rate 97 L/min Dr. Luis Caldera Work Phone: [facility] Work Phone: 04-17-2022 11:23-0400 Body height 185.4 cm Jojo Kaur MD Work Phone: [facility] 04-17-2022 11:23-0400 Body weight 114.31 kg Jojo Kaur MD Work Phone: [facility] 04-17-2022 11:23-0400 Diastolic blood pressure 71 mm[Hg] Jojo Kaur MD Work Phone: [facility] 04-17-2022 11:23-0400 Heart rate 72 /min Jojo Kaur MD Work Phone: [facility] 04-17-2022 11:23-0400 Respiratory rate 18 /min Jojo Kaur MD Work Phone: [facility] 04-17-2022 11:23-0400 SaO2% (BldA) [Mass fraction] 98 % Jojo Kaur MD Work Phone: [facility] 04-17-2022 11:23-0400 Systolic blood pressure 116 mm[Hg] Jojo Kaur MD Work Phone: [facility] 04-16-2022 13:09-0400 Body height 185.4 cm Abdulaziz Caldera MD Work Phone: [facility] 04-16-2022 13:09-0400 Body weight 114.31 kg Abdulaziz Caldera MD Work Phone: [facility] 04-16-2022 13:09-0400 Diastolic blood pressure 72 mm[Hg] Abdulaziz Caldera MD Work Phone: [facility] 04-16-2022 13:09-0400 Heart rate 70 /min Abdulaziz Caldera MD Work Phone: [facility] 04-16-2022 13:09-0400 Respiratory rate 16 /min Abdulaziz Caldera MD Work Phone: [facility] 04-16-2022 13:09-0400 SaO2% (BldA) [Mass fraction] 98 % Abdulaziz Caldera MD Work Phone: [facility] 04-16-2022 13:09-0400 Systolic blood pressure 132 mm[Hg] Abdulaziz Caldera MD Work Phone: [facility] 04-06-2022 09:36-0400 Body weight 114.31 kg Roselia Podlogar FRONT DESK PERSON.MANAGER [employer]ULATION Work Phone: [facility] 04-06-2022 09:36-0400 Diastolic blood pressure 62 mm[Hg] Roselia Podlogar FRONT DESK PERSON.MANAGER [employer]ULATION Work Phone: [facility] 04-06-2022 09:36-0400 Heart rate 62 /min Roselia Podlogar FRONT DESK PERSON.MANAGER [employer]ULATION Work Phone: [facility] 04-06-2022 09:36-0400 Respiratory rate 16 /min Roselia Podlogar FRONT DESK PERSON.MANAGER SIMULATION Work Phone: [facility] 04-06-2022 09:36-0400 SaO2% (BldA) [Mass fraction] 97 % Roselia Podlogar FRONT DESK PERSON.MANAGER SIMULATION Work Phone: [facility] 04-06-2022 09:36-0400 Systolic blood pressure 112 mm[Hg] Roselia Podlogar FRONT DESK PERSON.MANAGER SIMULATION Work Phone: [facility] 03-07-2022 11:12-0400 Body weight 114.76 kg Abdulaziz Caldera MD Work Phone: [facility] 03-07-2022 11:12-0400 Diastolic blood pressure 70 mm[Hg] Abdulaziz Caldera MD Work Phone: [facility] 03-07-2022 11:12-0400 Heart rate 64 /min Abdulaziz Caldera MD Work Phone: [facility] 03-07-2022 11:12-0400 Respiratory rate 16 /min Abdulaziz Caldera MD Work Phone: [facility] 03-07-2022 11:12-0400 Systolic blood pressure 118 mm[Hg] Abdulaziz Caldera MD Work Phone: [facility] 03-05-2022 12:00-0400 Diastolic blood pressure 60 mm[Hg] David Poon PT [facility] 03-05-2022 12:00-0400 Systolic blood pressure 112 mm[Hg] David Poon PT [facility] 03-02-2022 19:48-0400 Diastolic blood pressure 79 mm[Hg] Dr. Luis Caldera Work Phone: [facility] Work Phone: 03-02-2022 19:48-0400 Heart rate 77 /min Dr. Luis Caldera Work Phone: [facility] Work Phone: 03-02-2022 19:48-0400 SaO2% (BldA) [Mass fraction] 97 % Dr. Luis Caldera Work Phone: [facility] Work Phone: 03-02-2022 19:48-0400 Systolic blood pressure 131 mm[Hg] Dr. Luis Caldera Work Phone: [facility] Work Phone: 03-02-2022 18:12-0400 Respiratory rate 17 /min Dr. Luis Caldera Work Phone: [facility] Work Phone: 03-02-2022 14:22-0400 Body height 185.[address] Luis Caldera Work Phone: [facility] Work Phone: 03-02-2022 14:22-0400 Body mass index (BMI) [Ratio] 32.3 kg/m2 Dr. Luis Caldera Work Phone: [facility] Work Phone: 03-02-2022 14:22-0400 Body temperature 98.9 [degF] Dr. Luis Caldera Work Phone: [facility] Work Phone: 03-02-2022 14:22-0400 Body weight 111.[address] Luis Caldera Work Phone: [facility] Work Phone: 01-12-2022 08:00-0400 Diastolic blood pressure 78 mm[Hg] David Poon PT [facility] 01-12-2022 08:00-0400 Systolic blood pressure 130 mm[Hg] David Lemsameera PT [facility] 01-05-2022 09:56-0400 Body height 185.4 cm Jojo Kaur MD Work Phone: [facility] 01-05-2022 09:56-0400 Body weight 111.58 kg Jojo Kaur MD Work Phone: [facility] 01-05-2022 09:56-0400 Diastolic blood pressure 62 mm[Hg] Jojo Kaur MD Work Phone: [facility] 01-05-2022 09:56-0400 Heart rate 58 /min Jojo Kaur MD Work Phone: [facility] 01-05-2022 09:56-0400 Respiratory rate 16 /min Jojo Kaur MD Work Phone: [facility] 01-05-2022 09:56-0400 SaO2% (BldA) [Mass fraction] 97 % Jojo Kaur MD Work Phone: [facility] 01-05-2022 09:56-0400 Systolic blood pressure 117 mm[Hg] Jojo Kaur MD Work Phone: [facility] 01-01-2022 10:12-0400 Body temperature 97.39 [degF] Abdulaziz Caldera MD Work Phone: [facility] 01-01-2022 10:12-0400 Body weight 111.77 kg Abdulaziz Caldera MD Work Phone: [facility] 01-01-2022 10:12-0400 Diastolic blood pressure 64 mm[Hg] Abdulaziz Caldera MD Work Phone: [facility] 01-01-2022 10:12-0400 Heart rate 47 /min Abdulaziz Caldera MD Work Phone: [facility] 01-01-2022 10:12-0400 Respiratory rate 18 /min Abdulaziz Caldera MD Work Phone: [facility] 01-01-2022 10:12-0400 SaO2% (BldA) [Mass fraction] 98 % Abdulaziz Caldera MD Work Phone: [facility] 01-01-2022 10:12-0400 Systolic blood pressure 112 mm[Hg] Abdulaziz Caldera MD Work Phone: [facility] 01-01-2022 08:55-0400 Body weight 112.49 kg Justina Monique APRN.CNP Work Phone: [facility] 01-01-2022 08:55-0400 Diastolic blood pressure 74 mm[Hg] Justina Leonie FRONT DESK PERSON.MANAGER SIMULATION Work Phone: [facility] 01-01-2022 08:55-0400 Heart rate 60 /min Justina Leonie FRONT DESK PERSON.MANAGER SIMULATION Work Phone: [facility] 01-01-2022 08:55-0400 Respiratory rate 18 /min Justina Leonie FRONT DESK PERSON.MANAGER SIMULATION Work Phone: [facility] 01-01-2022 08:55-0400 Systolic blood pressure 147 mm[Hg] Justina Vizcarraely FRONT DESK PERSON.MANAGER SIMULATION Work Phone: [facility] 12-29-2021 08:54-0400 Heart rate 69 /min Dr. Luis Caldera Work Phone: [facility] Work Phone: 12-29-2021 08:50-0400 Body temperature 97.7 [degF] Dr. Luis Caldera Work Phone: [facility] Work Phone: 12-29-2021 08:50-0400 Diastolic blood pressure 68 mm[Hg] Dr. Luis Caldera Work Phone: [facility] Work Phone: 12-29-2021 08:50-0400 Respiratory rate 18 /min Dr. Luis Caldera Work Phone: [facility] Work Phone: 12-29-2021 08:50-0400 SaO2% (BldA) [Mass fraction] 96 % Dr. Luis Caldera Work Phone: [facility] Work Phone: 12-29-2021 08:50-0400 Systolic blood pressure 139 mm[Hg] Dr. Luis Caldera Work Phone: [facility] Work Phone: 12-27-2021 22:36-0400 Body height 185.[address] Luis Caldera Work Phone: [facility] Work Phone: 12-27-2021 22:36-0400 Body mass index (BMI) [Ratio] 32.8 kg/m2 Dr. Luis Caldera Work Phone: [facility] Work Phone: 12-27-2021 22:36-0400 Body weight 112.[address] Luis Caldera Work Phone: [facility] Work Phone: 12-27-2021 21:22-0400 Diastolic blood pressure 71 mm[Hg] DR MELANIA WORKMAN MD [facility] [place] 12-27-2021 21:22-0400 Heart rate 73 /min DR MELANIA WORKMAN MD [facility] [place] 12-27-2021 21:22-0400 Respiratory rate 24 /min DR MELANIA WORKMAN MD [facility] [place] 12-27-2021 21:22-0400 Systolic blood pressure 121 mm[Hg] DR MELANIA WORKMAN MD [facility] [place] 12-27-2021 20:06-0400 Diastolic blood pressure 59 mm[Hg] [facility] MELANIA WORKMAN [facility] [facility] [place] 12-27-2021 20:06-0400 Heart rate 80 /min DR MELANIA WORKMAN MD [facility] [place] 12-27-2021 20:06-0400 Respiratory rate 26 /min DR MELANIA WORKMAN MD [facility] [place] 12-27-2021 20:06-0400 Systolic blood pressure 112 mm[Hg] DR MELANIA WORKMAN MD [facility] [place] 12-27-2021 19:19-0400 Body temperature 98.6 [degF] DR MELANIA WORKMAN MD [facility] [place] 12-27-2021 19:19-0400 Diastolic blood pressure 76 mm[Hg] DR MELANIA WORKMAN MD [facility] [place] 12-27-2021 19:19-0400 Heart rate 82 /min DR MELANIA WORKMAN MD [facility] [place] 12-27-2021 19:19-0400 Respiratory rate 26 /min DR MELANIA WORKMAN MD [facility] [place] 12-27-2021 19:19-0400 Systolic blood pressure 138 mm[Hg] DR MELANIA WORKMAN MD [facility] [place] 12-27-2021 17:36-0400 Body temperature 102.56 [degF] DR MELANIA WORKMAN MD [facility] [place] 12-27-2021 17:36-0400 Body weight [address] MELANIA WORKMAN MD [facility] [place] 12-27-2021 17:36-0400 Heart rate 104 /min DR MELANIA WORKMAN MD [facility] [place] 12-14-2021 15:10-0400 Body temperature 98.2 [degF] Abdulaziz Caldera MD Work Phone: [facility] 12-14-2021 15:10-0400 Body weight 110.77 kg Abdulaziz Caldera MD Work Phone: [facility] 12-14-2021 15:10-0400 Diastolic blood pressure 70 mm[Hg] Abdulaziz Caldera MD Work Phone: [facility] 12-14-2021 15:10-0400 Heart rate 54 /min Abdulaziz Caldera MD Work Phone: [facility] 12-14-2021 15:10-0400 Respiratory rate 16 /min Abdulaziz Caldera MD Work Phone: [facility] 12-14-2021 15:10-0400 SaO2% (BldA) [Mass fraction] 96 % Abdulaziz Caldera MD Work Phone: [facility] 12-14-2021 15:10-0400 Systolic blood pressure 130 mm[Hg] Abdulaziz Caldera MD Work Phone: [facility] 12-08-2021 16:23-0400 Diastolic blood pressure 64 mm[Hg] Abdulaziz Caldera MD Work Phone: [facility] 12-08-2021 16:23-0400 Heart rate 85 /min Abdulaziz Caldera MD Work Phone: [facility] 12-08-2021 16:23-0400 Systolic blood pressure 110 mm[Hg] Abdulaziz Caldera MD Work Phone: [facility] 12-07-2021 00:58-0400 SaO2% (BldA) [Mass fraction] 97 % [facility] Work Phone: 12-06-2021 22:59-0400 Body height 185.42 cm [facility] Work Phone: 12-06-2021 22:59-0400 Body mass index (BMI) [Ratio] 33.6 kg/m2 [facility] Work Phone: 12-06-2021 22:59-0400 Body temperature 97.7 [degF] [facility] Work Phone: 12-06-2021 22:59-0400 Body weight 115.66 kg [facility] Work Phone: 12-06-2021 22:59-0400 Diastolic blood pressure 78 mm[Hg] [facility] Work Phone: 12-06-2021 22:59-0400 Heart rate 90 /min [facility] Work Phone: 12-06-2021 22:59-0400 Respiratory rate 16 /min [facility] Work Phone: 12-06-2021 22:59-0400 Systolic blood pressure 149 mm[Hg] [facility] Work Phone: 10-23-2021 13:05-0400 Body temperature 97.3 [degF] Marcella [place] PA-C Work Phone: [facility] 10-23-2021 13:05-0400 Body weight 114.58 kg Marcella [place] PA-C Work Phone: [facility] 10-23-2021 13:05-0400 Diastolic blood pressure 56 mm[Hg] Marcella [place] PA-C Work Phone: [facility] 10-23-2021 13:05-0400 Heart rate 85 /min Marcella [place] PA-C Work Phone: [facility] 10-23-2021 13:05-0400 SaO2% (BldA) [Mass fraction] 98 % Marcella [place] PA-C Work Phone: [facility] 10-23-2021 13:05-0400 Systolic blood pressure 132 mm[Hg] Marcella [place] PA-C Work Phone: [facility] 10-10-2021 10:07-0400 Diastolic blood pressure 68 mm[Hg] Richard Jones MD Work Phone: [facility] 10-10-2021 10:07-0400 Heart rate 69 /min Richard Jones MD Work Phone: [facility] 10-10-2021 10:07-0400 Respiratory rate 16 /min Richard Jones MD Work Phone: [facility] 10-10-2021 10:07-0400 SaO2% (BldA) [Mass fraction] 98 % Richard Jones MD Work Phone: [facility] 10-10-2021 10:07-0400 Systolic blood pressure 150 mm[Hg] Richard Jones MD Work Phone: [facility] 10-10-2021 08:01-0400 Body temperature 97 [degF] Richard Jones MD Work Phone: [facility] Encounters Encounter Date Encounter Type Care Provider Facility Start: 04-29-2025 ambulatory Walter Rosita Stewart ty:[facility] Start: 04-09-2025 ambulatory Walter Stewart ty:[facility] Start: 03-22-2025 End: 03-22-2025 Debi Rashard [facility] Work Phone: Start: 03-22-2025 End: 03-22-[address] Luis Caldera MD Work Phone: -[facility] Start: 03-22-2025 End: 03-22-[address] Luis Caldera MD Work Phone: -[facility] Start: 03-22-2025 End: 03-22-2025 Deangelo LOONEY -[facility] Work Phone: Start: 03-16-2025 End: 03-16-[address] Luis Caldera MD Work Phone: -Cardiovascular Services Start: 03-16-2025 End: 03-16-2025 Dr. Aneesh Ac MD -[facility] Start: 03-16-2025 End: 03-16-2025 ambulatory Meghana Cole Facility:[facility] Start: 03-03-2025 End: 03-03-[address] Luis Caldera MD Work Phone: -[facility] Start: 03-03-2025 End: 03-03-2025 Meghana Cole PA -[facility] Work Phone: Start: 02-27-2025 End: 02-28-2025 Dr. Luis Caldera MD Work Phone: -Emergency Department Work Phone: Start: 02-27-2025 End: 02-28-2025 Emergency department patient visit Dr. Luis Caldera MD Work Phone: -Emergency Department Start: 02-26-2025 ambulatory [facility] Facility:[facility] Start: 02-26-2025 [facility] Start: 02-25-2025 ambulatory Kuldip Harjeet Facility:[facility] Start: 02-25-2025 [facility] Start: 02-22-2025 ambulatory [place] [facility] Start: 02-22-2025 Walter Becker MD -[facility] Start: 02-18-2025 ambulatory [facility] Facility:[facility] Start: 02-18-2025 Walter Becker MD -[facility] Start: 02-17-2025 ambulatory Kuldip Harjeet Facility:[facility] Start: 02-17-2025 [facility] Start: 02-16-2025 ambulatory [facility] Facility:[facility] Start: 02-16-2025 [facility] Start: 02-15-2025 ambulatory [place] Facility:[facility] Start: 02-15-2025 [facility] Start: 02-11-2025 Dr. Hugo Cervantes MD -[facility] Work Phone: Start: 02-10-2025 [facility] Start: 02-10-2025 Dr. Hugo Cervantes MD [facility] Work Phone: Start: 02-10-2025 End: 02-10-2025 ambulatory [facility] Start: 02-10-2025 End: 02-10-2025 Dr. Júnior Chandra MD -[facility] Work Phone: Start: 02-09-2025 Dr. Aneesh [facility] Start: 02-09-2025 Dr. Hugo Cervantes MD -[facility] Work Phone: Start: 02-08-2025 Dr. Hugo Cervantes MD -[facility] Work Phone: Start: 02-07-2025 Dr. Hugo Cervantes MD [facility] Work Phone: Start: 02-06-2025 Dr. Hugo Cervantes MD -[facility] Work Phone: Start: 02-05-2025 Dr. Hugo Cervantes MD [facility] Work Phone: Start: 02-04-2025 Dr. Hugo Cervantes MD [facility] Work Phone: Start: 02-04-2025 Meghana LOZA -[facility] Start: 02-03-2025 ambulatory [facility] Start: 02-03-2025 [facility] Start: 02-03-2025 Dr. Hugo Cervnates MD [facility] Work Phone: Start: 02-02-2025 [facility] Start: 02-02-2025 End: 02-11-2025 Evaluation and management of inpatient Dr. Karen Aly MD -Progressive Care Unit Work Phone: Start: 02-02-2025 End: 02-11-2025 Dr. Hugo Cervantes MD -[facility] Unit Work Phone: Start: 12-22-2024 ambulatory Wlater Stewart ty:[facility] Start: 12-22-2024 Registered Referred Walter Becker MD -[facility] Start: 12-22-2024 Walter Becker MD -[facility] Start: 12-16-2024 ambulatory Luisjonas Caldera Faci lity:[facility] Start: 12-16-2024 Registered Referred Walter Becker MD -[facility] Start: 12-16-2024 Walter Becker MD -[facility] Start: 11-24-2024 ambulatory Luisjonas Caldera Faci lity:[facility] Start: 11-24-2024 Registered Referred Walter Becker MD -[facility] Start: 11-24-2024 Walter Becker MD -[facility] Start: 10-12-2024 End: 10-12-[address] Olga Lidia Rasheed MD -[facility] Work Phone: Start: 10-12-2024 End: 10-12-2024 ambulatory Luis Caldera [facility] Start: 10-05-2024 End: 10-05-[address] Luis Caldera MD Work Phone: [facility] Work Phone: Start: 10-05-2024 End: 10-05-2024 Departed Referred Walter Becker MD -[facility] Start: 10-05-2024 Registered Referred Walter Becker MD -[facility] Start: 10-05-2024 End: 10-05-2024 ambulatory Luis Caldera Facility:[facility] Start: 09-29-2024 End: 09-29-[address] Luis Caldera MD Work Phone: [facility] Work Phone: Start: 09-29-2024 End: 09-29-2024 Departed Referred [facility] Start: 09-29-2024 End: 09-29-2024 ambulatory Luis Caldera Facility:[facility] Start: 08-04-2024 End: 08-04-2024 Departed Referred Walter Becker MD -[facility] Start: 08-04-2024 End: 08-04-2024 ambulatory Luis Caldera Facility:[facility] Start: 07-27-2024 End: 07-27-2024 Departed Referred Walter Becker MD -[facility] Start: 07-27-2024 End: 07-27-2024 ambulatory Luis Caldera Facility:[facility] Start: 07-07-2024 End: 07-07-2024 Departed Referred Walter Becker MD -[facility] Start: 07-07-2024 End: 07-07-2024 ambulatory Luis Caldera Facility:[facility] Start: 07-01-2024 ambulatory Luis Caldera Faci lity:[facility] Start: 07-01-2024 Registered Referred Walter Becker MD -[facility] Start: 06-01-2024 End: 06-01-2024 ambulatory Kee René Facility:[facility] Start: 10-25-[address] Adam Caldera Work Phone: [facility] Start: 10-16-2023 End: 10-16-[address] Luis Caldera Work Phone: [facility] Work Phone: Start: 10-16-2023 End: 10-16-[address] [facility] Start: 10-16-[address] Adam Calder[facility] Start: 10-08-2023 End: 10-08-[address] Luis Caldera Work Phone: [facility] Work Phone: Start: 10-08-2023 End: 10-08-[address] Luis Caldera Work Phone: [facility] Start: 10-08-[address] Adam Caldera Work Phone: [facility] Start: 10-07-2023 End: 10-07-[address] Luis Caldera Work Phone: [facility] Work Phone: Start: 10-04-2023 End: 10-04-[address] Luis Caldera Work Phone: [facility] Work Phone: Start: 10-04-2023 End: 10-04-[address] Luis Caldera Work Phone: [facility] Start: 10-01-2023 End: 10-01-[address] Luis Caldera Work Phone: [facility] Work Phone: Start: 10-01-2023 End: 10-01-[address] Luis Caldera Work Phone: [facility] Start: 10-01-2023 Registered Referred [facility] Start: 09-25-2023 End: 09-25-2023 ambulatory [facility] Work Phone: Start: 09-25-2023 End: 09-25-2023 Departed Referred [facility] Start: 09-18-2023 End: 09-18-2023 ambulatory [facility] Work Phone: Start: 09-18-2023 End: 09-18-2023 [facility] Start: 09-18-2023 Registered Referred [facility] Start: 09-13-2023 End: 09-13-2023 ambulatory [facility] Work Phone: Start: 09-13-2023 End: 09-13-2023 Dep[facility]ed [facility] Start: 09-13-2023 Registered Referred [facility] Start: 09-12-2023 End: 09-12-2023 ambulatory [facility] Work Phone: Start: 09-12-2023 End: 09-12-2023 Dep[facility]ed [facility] Start: 09-12-2023 Registered Referred [facility] Start: 09-09-2023 End: 09-09-2023 ambulatory [facility] Work Phone: Start: 09-09-2023 End: 09-09-2023 Dep[facility]ed [facility] Start: 09-09-2023 Registered Referred [facility] Start: 08-26-2023 End: 08-26-2023 ambulatory [facility] Work Phone: Start: 08-26-2023 End: 08-26-2023 Dep[facility]ed [facility] Start: 08-26-2023 Registered Referred [facility] Start: 08-19-2023 End: 08-19-2023 ambulatory [facility] Work Phone: Start: 08-19-2023 End: 08-19-2023 Departed [facility] Start: 08-19-2023 Registered Referred [facility] Start: 08-12-2023 End: 08-12-2023 ambulatory [facility] Work Phone: Start: 08-12-2023 End: 08-12-2023 [facility] Start: 08-12-2023 Registered Referred [facility] Start: 08-05-2023 End: 08-05-2023 ambulatory [facility] Work Phone: Start: 08-05-2023 End: 08-05-2023 [facility] Start: 08-05-2023 [facility] Start: 07-29-2023 End: 07-29-2023 ambulatory [facility] Work Phone: Start: 07-29-2023 End: 07-29-2023 [facility] Start: 07-22-2023 End: 07-22-2023 ambulatory [facility] Work Phone: Start: 07-22-2023 End: 07-22-2023 [facility] Start: 07-22-[address] Adam Caldera Work Phone: [facility] Start: 07-19-2023 End: 07-19-2023 ambulatory [facility] Work Phone: Start: 07-19-2023 End: 07-19-2023 Departed Referred [facility] Start: 07-19-[address] Adam Caldera Work Phone: [facility] Start: 07-17-2023 End: 07-17-2023 ambulatory [facility] Work Phone: Start: 07-17-2023 End: 07-17-2023 [facility] Start: 07-17-[address] Adam Calder[facility] Start: 07-10-2023 End: 07-10-[address] Luis Caldera Work Phone: [facility] Work Phone: Start: 07-10-2023 End: 07-10-[address] Luis Caldera Work Phone: [facility] Start: 07-03-2023 End: 07-03-[address] Luis Caldera Work Phone: [facility] Work Phone: Start: 07-03-2023 End: 07-03-[address] Luis Caldera Work Phone: [facility] Start: 07-03-[address] Adam Caldera Work Phone: [facility] Start: 06-26-2023 End: 06-26-[address] Luis Caldera Work Phone: [facility] Work Phone: Start: 06-26-2023 End: 06-26-[address] Luis Caldera Work Phone: [facility] Start: 06-26-[address] Adam Caldera Work Phone: [facility] Start: 06-25-2023 End: 06-25-[address] Luis Caldera Work Phone: [facility] Work Phone: Start: 06-25-2023 End: 06-25-[address] Luis Caldera Work Phone: [facility] Start: 06-25-[address] Adam Caldera Work Phone: [facility] Start: 06-24-2023 End: 06-24-[address] Luis Caldera Work Phone: [facility] Work Phone: Start: 06-24-2023 End: 06-24-[address] Luis Caldera Work Phone: [facility] Start: 06-24-[address] Adam Caldera Work Phone: [facility] Start: 06-17-2023 End: 06-17-[address] Luis Caldera Work Phone: [facility] Work Phone: Start: 06-17-2023 End: 06-17-[address] Luis Caldera Work Phone: [facility] Start: 06-10-2023 End: 06-10-[address] Luis Caldera Work Phone: [facility] Work Phone: Start: 06-10-2023 End: 06-10-[address] Luis Caldera Work Phone: [facility] Start: 06-10-[address] Adam Caldera Work Phone: [facility] Start: 06-03-2023 End: 06-03-2023 Admission to same day surgery center Dr. Luis Caldera Work Phone: [facility] Start: 06-03-2023 End: 06-03-[address] Luis Caldera Work Phone: [facility] Work Phone: Start: 06-03-2023 End: 06-03-2023 Dr. Luis Caldera Work Phone: [facility] Start: 05-20-2023 End: 05-20-[address] Luis Caldera Work Phone: [facility] Work Phone: Start: 05-20-2023 End: 05-20-[address] Luis Caldera Work Phone: [facility] Start: 05-20-2023 End: 05-20-2023 Dr. Luis Caldera Work Phone: [facility] Start: 05-15-2023 End: 05-15-[address] Luis Caldera Work Phone: [facility] Work Phone: Start: 05-15-2023 End: 05-15-[address] Luis Caldera Work Phone: [facility] Start: 05-15-2023 End: 05-15-2023 Dr. Luis Caldera Work Phone: [facility] Start: 05-06-2023 End: 05-06-[address] Luis Caldera Work Phone: [facility] Work Phone: Start: 05-06-2023 End: 05-06-[address] Luis Caldera Work Phone: [facility] Start: 05-06-2023 End: 05-06-2023 Dr. Luis Caldera Work Phone: [facility] Start: 04-29-2023 End: 04-29-[address] Maggy Roberts Work Phone: [facility] Work Phone: Start: 04-29-2023 End: 04-29-[address] Luis Caldera Work Phone: [facility] Start: 04-29-2023 End: 04-29-2023 Dr. Maggy Roberts Work Phone: [facility] Start: 04-15-2023 End: 04-15-[address] Luis Caldera Work Phone: [facility] Start: 04-15-2023 End: 04-15-2023 Dr. Maggy Roberts Work Phone: [facility] Start: 04-09-2023 End: 04-09-[address] Maggy Roberts Work Phone: [facility] Work Phone: Start: 04-09-2023 End: 04-09-[address] Luis Caldera Work Phone: [facility] Start: 04-09-2023 End: 04-09-2023 Dr. Maggy Roberts Work Phone: [facility] Start: 04-08-2023 End: 04-08-[address] Luis Caldera Work Phone: [facility] Start: 04-08-2023 End: 04-08-2023 Dr. Maggy Roberts Work Phone: [facility] Start: 04-01-2023 End: 04-01-[address] Maggy Roberts Work Phone: [facility] Work Phone: Start: 04-01-2023 End: 04-01-[address] Luis Caldera Work Phone: [facility] Start: 04-01-2023 End: 04-01-2023 Dr. Maggy Roberts Work Phone: [facility] Start: 03-27-2023 End: 03-27-[address] Luis Caldera Work Phone: [facility] Work Phone: Start: 03-27-2023 End: 03-27-2023 Dr. Maggy Roberts Work Phone: [facility] Work Phone: Start: 03-25-2023 End: 03-25-[address] Maggy Roberts Work Phone: [facility] Work Phone: Start: 03-25-2023 End: 03-25-[address] Luis Caldera Work Phone: [facility] Start: 03-25-2023 End: 03-25-2023 Dr. Maggy Roberts Work Phone: [facility] Start: 03-11-2023 End: 03-11-[address] Maggy Roberts Work Phone: [facility] Work Phone: Start: 03-11-2023 End: 03-11-[address] Luis Caldera Work Phone: [facility] Start: 03-11-2023 End: 03-11-2023 Dr. Maggy Roberts Work Phone: [facility] Start: 03-04-[address] Adam Caldera Work Phone: [facility] Start: 03-04-2023 Dr. Maggy Bonilla line Work Phone: [facility] Start: 03-01-[address] Adam Caldera Work Phone: [facility] Start: 03-01-2023 Dr. Maggy Bonilla line Work Phone: [facility] Start: 02-25-[address] Adam Caldera Work Phone: [facility] Start: 02-25-2023 Dr. Maggy Bonilla line Work Phone: [facility] Start: 02-22-[address] Adam Caldera Work Phone: [facility] Start: 02-22-2023 Dr. Maggy Bonilla line Work Phone: [facility] Start: 02-20-2023 Dr. Maggy Bonilla line Work Phone: [facility] Start: 02-18-2023 End: 02-18-2023 Dr. Maggy Roberts Work Phone: [facility] Work Phone: Start: 02-14-2023 Dr. Maggy Bonilla line Work Phone: [facility] Start: 02-13-2023 Dr. Maggy Bonilla line Work Phone: [facility] Work Phone: Start: 02-12-2023 Dr. Maggy Bonilla line Work Phone: [facility] Work Phone: Start: 02-12-2023 Dr. Maggy Bonilla line Work Phone: [facility] Start: 02-11-2023 End: 02-13-2023 Evaluation and management of inpatient Dr. Maggy Roberts Work Phone: [facility] Work Phone: Start: 02-11-2023 End: 02-13-2023 Dr. Maggy Roberts Work Phone: [facility] Work Phone: Start: 02-10-2023 End: 02-11-2023 Emergency department patient visit Dr. Maggy Roberts Work Phone: [facility] Work Phone: Start: 02-10-2023 End: 02-11-2023 Dr. Maggy Roberts Work Phone: [facility] Work Phone: Start: 02-07-2023 Dr. Maggy benavides Work Phone: [facility] Start: 02-05-2023 Dr. Maggy Bonilla line Work Phone: [facility] Work Phone: Start: 02-05-2023 End: 02-05-2023 Dr. Maggy Roberts Work Phone: [facility] Work Phone: Start: 02-04-2023 Dr. Maggy Bonilla line Work Phone: [facility] Work Phone: Start: 02-03-2023 End: 02-05-2023 Dr. Maggy Roberts Work Phone: [facility] Work Phone: Start: 02-02-2023 Dr. Maggy Bonilla line Work Phone: [facility] Work Phone: Start: 02-01-2023 Dr. Maggy Bonilla line Work Phone: [facility] Start: 02-01-2023 Dr. Maggy Bonilla line Work Phone: [facility] Work Phone: Start: 01-31-2023 Dr. Maggy Bonilla line Work Phone: [facility] Start: 01-31-2023 Dr. Maggy Bonilla line Work Phone: [facility] Work Phone: Start: 01-30-2023 Dr. Maggy Bonilla line Work Phone: [facility] Start: 01-30-2023 Dr. Maggy Bonilla line Work Phone: [facility] Start: 01-29-2023 Dr. Maggy Bonilla line Work Phone: [facility] Work Phone: Start: 01-29-2023 Dr. Maggy Bonilla line Work Phone: [facility] Start: 01-28-2023 Telephone encounter Luis Caldera MD Work Phone: [facility] Comment on above: Immunizations Start: 01-28-2023 Dr. Maggy Bonilla line Work Phone: [facility] Work Phone: Start: 01-28-2023 End: 01-28-2023 Dr. Maggy Roberts Work Phone: [facility] Work Phone: Start: 01-27-2023 Evaluation and management of inpatient Dr. Maggy Roberts Work Phone: [facility] Work Phone: Start: 01-27-2023 End: 02-05-2023 Dr. Maggy Roberts Work Phone: [facility] Work Phone: Start: 01-26-2023 Non-patient / Non-visit Dr. Eddie Roberts Work Phone: [facility] Start: 01-26-2023 Dr. Maggy Bonilla line Work Phone: [facility] Start: 01-26-2023 Non-patient / Non-visit Dr. Eddie Roberts Work Phone: [facility] Work Phone: Start: 01-26-2023 Dr. Maggy Bonilla line Work Phone: [facility] Work Phone: Start: 01-25-2023 Non-patient / Non-visit Dr. Eddie Roberts Work Phone: [facility] Start: 01-25-2023 Dr. Maggy Bonilla line Work Phone: [facility] Start: 01-25-2023 Non-patient / Non-visit Dr. Eddie Roberts Work Phone: [facility] Work Phone: Start: 01-25-2023 Dr. Maggy Bonilla line Work Phone: [facility] Work Phone: Start: 01-24-2023 Non-patient / Non-visit [facility]. Eddie Roberts [facility] Phone: [facility] Start: 01-24-2023 Dr. Maggy Bonilla line Work Phone: [facility] Start: 01-24-2023 Telephone encounter Luis Caldera MD Work Phone: [facility] Comment on above: Patient Update Start: 01-24-2023 Non-patient / Non-visit Dr. Eddie Roberts Work Phone: [facility] Start: 01-24-2023 Dr. Maggy Bonilla line Work Phone: [facility] Start: 01-24-2023 Non-patient / Non-visit Dr. Eddie Roberts Work Phone: [facility] Work Phone: Start: 01-24-2023 End: 01-24-2023 Dr. Maggy Roberts Work Phone: [facility] Work Phone: Start: 01-23-2023 Non-patient / Non-visit Dr. Eddie Roberts Work Phone: [facility] Start: 01-23-2023 Dr. Maggy Bonilla line Work Phone: [facility] Start: 01-23-2023 Non-patient / Non-visit Dr. Eddie Roberts Work Phone: [facility] Start: 01-23-2023 Dr. Maggy Bonilla line Work Phone: [facility] Start: 01-22-2023 Non-patient / Non-visit Dr. Eddie Roberts Work Phone: [facility] Start: 01-22-2023 Dr. Maggy Bonilla line Work Phone: [facility] Start: 01-22-2023 Non-patient / Non-visit Dr. Eddie Roberts Work Phone: [facility] Start: 01-22-2023 Dr. Maggy Bonilla line Work Phone: [facility] Start: 01-22-2023 Non-patient / Non-visit Dr. Eddie Roberts Work Phone: [facility] Work Phone: Start: 01-22-2023 Dr. Maggy Bonilla line Work Phone: [facility] Work Phone: Start: 01-21-2023 End: 01-21-2023 Dr. Maggy Roberts Work Phone: [facility] Work Phone: Start: 01-21-2023 Non-patient / Non-visit Dr. Eddie Roberts Work Phone: [facility] Start: 01-21-2023 Dr. Maggy Bonilla line Work Phone: [facility] Start: 01-21-2023 Non-patient / Non-visit Dr. Eddie Roberts Work Phone: [facility] Work Phone: Start: 01-21-2023 Dr. Maggy Bonilla line Work Phone: [facility] Work Phone: Start: 01-21-2023 End: 01-26-2023 Evaluation and management of inpatient [facility] Mag[facility] Work [facility]: Start: 01-21-2023 End: 01-26-2023 Dr. Maggy Roberts Work Phone: [facility] Work Phone: Start: 01-08-2023 Non-patient / Non-visit Dr. Eddie Roberts Work Phone: [facility] Work Phone: Start: 01-08-2023 Dr. Maggy Bonilla line Work Phone: [facility] Work Phone: Start: 01-07-2023 Non-patient / Non-visit Dr. Eddie Roberts Work Phone: [facility] Work Phone: Start: 01-07-2023 Dr. Maggy Bonilla line Work Phone: [facility] Work Phone: Start: 01-06-2023 Non-patient / Non-visit Dr. Eddie Roberts Work Phone: [facility] Work Phone: Start: 01-06-2023 Dr. Maggy Bonilla line Work Phone: [facility] Work Phone: Start: 01-05-2023 End: 01-08-2023 Evaluation and management of inpatient Dr. Maggy Roberts Work Phone: [facility] Work Phone: Start: 01-05-2023 End: 01-08-2023 Dr. Maggy Roberts [facility] Work Phone: Start: 01-05-2023 Non-patient / Non-visit Dr. Eddie Roberts Work Phone: [facility] Work Phone: Start: 01-05-2023 Dr. Maggy Bonilla line Work Phone: [facility] Work Phone: Start: 01-04-2023 Evaluation and management of inpatient [facility] Start: 01-04-2023 Non-patient / Non-visit Dr. Eddie Roberts Work Phone: [facility] Work Phone: Start: 01-04-2023 observation encounter [facility] Work Phone: Start: 01-04-2023 Dr. Maggy benavides Work Phone: [facility] Work Phone: Start: 01-04-2023 Telephone encounter Luis Caldera MD Work Phone: [facility] Comment on above: Appointment Start: 01-03-2023 Telephone encounter Luis Caldera MD Work Phone: [facility] Comment on above: Appointment; Patient Update Start: 01-03-2023 End: 01-03-2023 ambulatory Justina O'Rafa PT [facility] Comment on above: Spinal stenosis, lum bar region, without neurogenic claudication (Primary Dx); Primary osteoarthritis of both knees Start: 12-31-2022 End: 12-31-2022 ambulatory Ira Kashuba JAILER/TRAINING OFFICER Work Phone: [facility] Comment on above: Spinal stenosis, lum bar region, without neurogenic claudication (Primary Dx); Primary osteoarthritis of both knees Start: 12-27-2022 End: 12-27-2022 ambulatory Ira Kashuba JAILER/TRAINING OFFICER Work Phone: [facility] [...] 11-20-2022 Refill Abdulaziz Caldera MD Work Phone: [facility] Comment on above: Refill Request Start: 11-19-2022 Telephone encounter Valencia Pascual MA [facility] Comment on above: Anticoagulation Start: 10-22-2022 End: 10-22-2022 Patient encounter procedure Zachary Obregon Work Phone: Podiatry Comment on above: Onychomycosis (Prima ry Dx); Pain in toe of left foot; Amputated toe of right foot (HCC); Diabetic polyneuropathy associated with type 2 diabetes mellitus (HCC) Start: 09-25-2022 Telephone encounter Luis Caldera MD Work Phone: [facility] Comment on above: Anticoagulation Start: 09-07-2022 Telephone encounter Jojo galan MD Work Phone: Neurology Comment on above: Appointment Start: 09-07-2022 End: 09-07-2022 Office outpatient visit 25 minutes Jojo Kaur MD Work Phone: Neurology Comment on above: Driving safety issue (Primary Dx) Start: 08-28-2022 Telephone encounter Luis Caldera MD Work Phone: [facility] Comment on above: Anticoagulation Start: 08-16-2022 Refill Abdulaziz Caldera MD Work Phone: [facility] Comment on above: Refill Request Start: 08-14-2022 Telephone encounter Luis Calder[facility] MD [facility] Comment on above: Anticoagulation Start: 08-09-2022 End: 08-09-2022 Patient encounter procedure Abdulaziz Caldera MD Work Phone: [facility] Comment on above: Type 2 [...] Telephone encounter Luis Caldera MD Work Phone: [facility] Comment on above: checking on medicati on Start: 08-06-2022 End: 08-06-2022 Patient encounter procedure Zachary Jaimes MD Work Phone: Otolaryngology Comment on above: Dizziness (Primary D x); Chronic frontal sinusitis Start: 07-31-2022 Telephone encounter Luis Caldera MD Work Phone: [facility] Comment on above: Anticoagulation Start: 07-26-2022 Telephone encounter Luis Caldera MD Work Phone: [facility] Comment on above: Home Health-Nursing Update Start: 07-25-2022 Refill Abdulaziz Caldera MD Work Phone: [facility] Comment on above: Refill Request Start: 07-17-2022 Telephone encounter Luis Caldera MD Work Phone: [facility] Comment on above: [facility] PT POC OT plan of care Start: 07-13-2022 Telephone encounter Luis Caldera MD Work Phone: [facility] Comment on above: Nursing Plan of C are Update Start: 07-12-2022 Telephone encounter Luis Caldera MD Work Phone: [facility] Comment on above: Orders Start: 07-11-2022 Non-patient / Non-visit Dr. Praveen Caldera Work Phone: [facility] Start: 07-11-2022 Non-patient / Non-visit Dr. Praveen Caldera Work Phone: [facility] Start: 07-10-2022 Non-patient / Non-visit Dr. Praveen Caldera Work Phone: [facility] Start: 07-10-2022 Non-patient / Non-visit Dr. Praveen Caldera Work Phone: [facility] Start: 07-09-2022 End: 07-11-2022 Evaluation and management of inpatient Dr. Luis Caldera Work Phone: [facility] Start: 07-09-2022 Refill Amanda VELASCO [facility] Comment on above: Opened In Error Refill Request Start: 07-05-2022 E-mail encounter fro m caregiver Jojo Kaur MD Work Phone: [facility] Start: 07-05-2022 Patient encounter procedure Jojo Kaur MD Work Phone: Neurology Comment on above: Appointment Needs Re scheduled: 08/21/[address] Kaur Start: 06-25-2022 Refill Abdulaziz Caldera MD Work Phone: [facility] Comment on above: Refill Request Start: 05-16-2022 Refill Abdulaziz Caldera MD Work Phone: [facility] Comment on above: Refill Request Start: 04-17-2022 Telephone encounter Justina fry MANAGER MACHINE Work Phone: Adult Psychology Comment on above: behavioral health so cial work Start: 04-17-2022 End: 04-17-2022 Patient encounter procedure Jojo Kaur MD Work Phone: Neurology Comment on above: Generalized anxiety disorder (Primary Dx); Polyneuropathy Start: 04-16-2022 End: 04-16-2022 Patient encounter procedure Abdulaziz Caldera MD Work Phone: [facility] Comment on above: Type 2 diabetes [...] 04-06-2022 End: 04-06-2022 Patient encounter procedure Roselia Raglandlogdavid SAMUEL Work Phone: [facility] Comment on above: Generalized weakness (Primary Dx); Encounter for immunization; Mild depression Start: 04-04-2022 Telephone encounter Luis Caldera MD Work Phone: [facility] Comment on above: Anticoagulation Start: 03-30-2022 End: 03-30-2022 Patient encounter procedure Zachary Sawantmarianne Work Phone: Podiatry Comment on above: Onychomycosis (Prima ry Dx); Pain in toe of left foot; Amputated toe of right foot (HCC); Diabetic polyneuropathy associated with type 2 diabetes mellitus (HCC) Start: 03-23-2022 End: 03-23-2022 ambulatory David Poon PT [facility] Comment on above: Abnormality of gait due to impairment of balance (Primary Dx) Start: 03-22-2022 Refill Abdulaziz Caldera MD Work Phone: [facility] Comment on above: Refill Request Start: 03-15-2022 End: 03-15-2022 ambulatory Karen Weber PTA Work Phone: [facility] Comment on above: Abnormality of gait due to impairment of balance (Primary Dx) Start: 03-12-2022 End: 03-12-2022 ambulatory Karen Weber JAILER/TRAINING OFFICER Work Phone: [facility] Comment on above: Abnormality of gait due to impairment of balance (Primary Dx) Start: 03-09-2022 End: 03-09-2022 ambulatory David Lemon PT [facility] Comment on above: Abnormality of gait due to impairment of balance (Primary Dx) Start: 03-07-2022 Telephone encounter Luis Caldera MD Work Phone: [facility] Comment on above: Anticoagulation Start: 03-07-2022 End: 03-07-[address] Luis Caldera Work Phone: [facility] Work Phone: Start: 03-07-2022 End: 03-07-[address] Luis Caldera Work Phone: [facility], Specimen Start: 03-07-2022 End: 03-07-2022 Patient encounter procedure Abdulaziz Caldera MD Work Phone: [facility] Comment on above: Generalized weakness (Primary Dx); Supratherapeutic INR; ANTHONY (acute kidney injury) (HCC) Start: 03-05-2022 End: 03-05-2022 ambulatory David Lemon PT [facility] Comment on above: Abnormality of gait due to impairment of balance (Primary Dx) Start: 03-02-2022 End: 03-02-2022 Emergency department patient visit Dr. Luis Caldera Work Phone: [facility] Start: 03-02-2022 End: 03-02-2022 ambulatory David Lemon PT [facility] Comment on above: Abnormality of gait due to impairment of balance (Primary Dx) Start: 02-26-2022 End: 02-26-2022 ambulatory David Lemon PT [facility] Comment on above: Abnormality of gait due to impairment of balance (Primary Dx) Start: 02-23-2022 End: 02-23-2022 ambulatory Karen Weber JAILER/TRAINING OFFICER Work Phone: [facility] Comment on above: Abnormality of gait due to impairment of balance (Primary Dx) Start: 02-14-2022 End: 02-14-2022 ambulatory David Lemon PT [facility] Comment on above: Abnormality of gait due to impairment of balance (Primary Dx) Start: 02-09-2022 End: 02-09-2022 ambulatory David Lemon PT [facility] Comment on above: Abnormality of gait due to impairment of balance (Primary Dx) Start: 02-06-2022 Refill Abdulaziz Caldera MD Work Phone: [facility] Comment on above: Prescription Refills Start: 02-02-2022 End: 02-02-2022 ambulatory Karen Weber JAILER/TRAINING OFFICER Work Phone: [facility] Comment on above: Abnormality of gait due to impairment of balance (Primary Dx) Start: 01-31-2022 Refill Abdulaziz Caldera MD Work Phone: [facility] Comment on above: Refill Request Start: 01-30-2022 End: 01-30-2022 ambulatory Karen Weber JAILER/TRAINING OFFICER Work Phone: [facility] Comment on above: Abnormality of gait due to impairment of balance (Primary Dx) Start: 01-23-2022 End: 01-23-2022 ambulatory Karen Weber JAILER/TRAINING OFFICER Work Phone: [facility] Comment on above: Abnormality of gait due to impairment of balance (Primary Dx) Refill Request; Refi ll Request Start: 01-17-2022 Telephone encounter Luis Caldera MD Work Phone: [facility] Comment on above: Question Start: 01-12-2022 End: 01-12-2022 ambulatory David Lemon PT [facility] Comment on above: Abnormality of gait due to impairment of balance (Primary Dx) Start: 01-11-2022 Telephone encounter Roselia miguel APRN.CNP Work Phone: [facility] Comment on above: Patient Question; Me dication Question; Referral Request Start: 01-10-2022 Telephone encounter Justina Monique APRN.MANAGER SIMULATION Work Phone: Cardiology Comment on above: Results [...] Start: 01-02-2022 Telephone encounter Justina Monique APRN.MANAGER SIMULATION Work Phone: [facility] Comment on above: Results Start: 01-01-2022 End: 01-01-2022 Patient encounter procedure Justina Monique APRN.MANAGER SIMULATION Work Phone: Cardiology Comment on above: Hyperlipidemia with target LDL less than 100 (Primary Dx); Primary hypertension; Thoracic aortic aneurysm without rupture (HCC); 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 Praveen Caldera Work Phone: [facility] Start: 12-28-2021 Non-patient / Non-visit Dr. Praveen Caldera Work Phone: [facility] Start: 12-28-2021 End: 12-29-2021 Evaluation and management of inpatient Dr. Luis Caldera Work Phone: [facility] Start: 12-27-2021 Non-patient / Non-visit Dr. Praveen Caldera Work Phone: [facility] Start: 12-27-2021 End: 12-27-2021 Emergency department patient visit DR. MELANIA WORKMAN MD. Facility:[facility] Start: 12-27-2021 End: 12-27-2021 Emergency department patient visit DR MELANIA WORKMAN MD [facility] Start: 12-14-2021 End: 12-14-2021 Patient encounter procedure Abdulaziz Caldera MD Work Phone: [facility] Comment on above: COVID-19 (Primary Dx ) Start: 12-08-2021 End: 12-08-2021 ambulatory Abdulaziz Caldera MD Work Phone: [facility] Comment on above: COVID-19 (Primary Dx ) Start: 12-08-2021 End: 12-08-2021 Telemedicine consultation with patient Abdulaziz Caldera MD Work Phone: [facility] Start: 12-08-2021 Telephone encounter Luis Caldera MD Work Phone: [facility] Comment on above: Patient Question Start: 12-06-2021 End: 12-07-2021 Emergency department patient visit [facility] Start: 11-20-2021 Refill Abdulaziz Caldera [...] 10-05-2021 Refill Abdulaziz Caldera MD Work Phone: [facility] Comment on above: Refill Request (SEE RX NOTES) Start: 10-03-2021 Telephone encounter Luis Caldera MD Work Phone: [facility] Comment on above: Medication Question Start: [...] QUADRIVALENT HIGH DOSE AGE 65+ Roselia Podlogar FRONT DESK PERSON.MANAGER SIMULATION Work Phone: Start: 04-06-2022 PFIZER-BIONTKngine COVID-19 BIVALENT BOOSTER VACCINE, AGE 12+ YR Roselia Podlogar FRONT DESK PERSON.MANAGER SIMULATION Work Phone: Start: 04-06-2022 Adult depression screening assessment Roselia Podlogar FRONT DESK PERSON.MANAGER SIMULATION Work Phone: Start: 03-07-2022 PROTHROMBIN TIME/PT Abdulaziz Caldera MD Work Phone: Start: 03-07-2022 Adult depression screening assessment Abdulaziz Caldera MD Work Phone: Start: 03-02-2022 CT of head without contrast Dr. Camron Caldera Work Phone: Start: 03-02-2022 Plain chest X-ray Dr. Luis Caldera Work Phone: Start: 01-09-2022 Echo tthrc r-t 2d w/wom-mode compl spec&colr d Justinajoelle Monique FRONT DESK PERSON.[facility] Work Phone: Start: 01-01-2022 Urnls dip stick/tablet [...] ca scrn not hi rsk ind [place] [facility] Work Phone: Start: 10-10-2021 Gluc bld gluc [...] Activity Detail Author Start: 10-11-2031 Colonoscopy COLONOSCOPY [facility] Start: 10-11-2031 COLORECTAL CANCER SCREENING COLORECTAL CANCER SCREENING [facility] Start: 02-27-2025 [facility] Start: 02-27-2025 End: 02-27-2025 [facility] Start: 02-27-2025 Blood culture [facility] Start: 02-11-2025 [facility] Start: 02-11-2025 Patient discharge [facility] Start: 02-11-2025 Application, wound VAC [facility] Start: 02-11-2025 [facility] Start: 02-10-2025 Elevation of head of bed [facility] Start: 02-10-2025 End: 02-10-2025 [facility] Start: 02-10-2025 Cardiac monitoring [facility] Start: 02-10-2025 Dietary regime [facility] Start: 02-10-2025 Log roll [facility] Start: 02-10-2025 Notification of physician [facility] Start: 02-10-2025 Provision of activit y privileges [facility] Start: 02-10-2025 Pulse taking [facility] Start: 02-09-2025 Catheterization of vein [facility] Start: 02-09-2025 Notification of physician [facility] Start: 02-09-2025 Preoperative care [facility] Start: 02-09-2025 End: 02-09-2025 [facility] Start: 02-08-2025 Consultation [facility] Start: 02-07-2025 [facility] Start: 02-05-2025 [facility] Start: 02-05-2025 Acid fast bacilli culture [facility] Start: 02-05-2025 Acid fast bacilli culture [facility] Start: 02-05-2025 Mycology culture [place] Start: 02-04-2025 Removal of urinary catheter [facility] Start: 02-04-2025 [facility] Start: 02-03-2025 End: 02-03-2025 [facility] Start: 02-03-2025 Referral to vascular surgeon [facility] Start: 02-03-2025 Following clinical p athway protocol [facility] Start: 02-03-2025 Assessment of risk o f venous thromboembolism [facility] Start: 02-03-2025 Care regimes management [facility] Start: 02-03-2025 Consultation for treatment [facility] Start: 02-03-2025 Elevation of affecte d extremity [facility] Start: 02-03-2025 Fall prevention [facility] Start: 02-03-2025 Inhalation therapy procedure [facility] Start: 02-03-2025 Insertion of cathete r into peripheral vein [facility] Start: 02-03-2025 Introduction of urin barrington catheter [facility] Start: 02-03-2025 Measuring intake and output [facility] Start: 02-03-2025 Methicillin resistan t Staphylococcus aureus screening test [facility] Start: 02-03-2025 Notification of physician [facility] Start: 02-03-2025 Oxygen therapy [facility] Start: 02-03-2025 Providing care accor ding to standard [facility] Start: 02-03-2025 Provision of activit y privileges [facility] Start: 02-03-2025 Referral to occupati onal therapist [facility] Start: 02-03-2025 Referral to tower dragline operator [facility] Start: 02-03-2025 Referral to service [facility] Start: 02-03-2025 Speech therapy assessment [facility] Start: 02-03-2025 Wound care [facility] Start: 02-03-2025 End: 02-03-2025 [facility] Start: 02-03-2025 Patient referral to dietitian [facility] Start: 02-02-2025 Hospital admission, emergency, from emergency room, medical nature [facility] Start: 02-02-2025 Respiratory pathogen s DNA and RNA panel - Respiratory specimen by ANGELY with probe detection [facility] Start: 02-02-2025 Verification routine [facility] Start: 02-02-2025 Admission procedure [facility] Start: 02-02-2025 [facility] Start: 02-02-2025 End: 02-02-2025 [facility] Start: 02-02-2025 Bacteria identified in Blood by Culture Blood Culture [facility] Start: 02-02-2025 Bacteria identified in Urine by Culture Urine Culture [facility] Start: 10-10-2024 Colonoscopy COLONOSCOPY [facility] Start: 10-10-2024 COLORECTAL CANCER SCREENING COLORECTAL CANCER SCREENING [facility] Start: 01-05-2024 ANNUAL PCP TEAM PHOTOGRAPHIC ARTIST MARLENE DISEASE VISIT ANNUAL PCP TEAM CHRONIC DISEASE VISIT [facility] Start: 01-05-2024 BP CONTROLLED (<130/80) BP CONTROLLE D (<130/80) [facility] Start: 12-04-2023 BP CONTROLLED (<130/80) BP CONTROLLE D (<130/80) [facility] Start: 11-20-2023 ANNUAL PCP TEAM PHOTOGRAPHIC ARTIST MARLENE DISEASE VISIT ANNUAL PCP TEAM CHRONIC DISEASE VISIT [facility] Start: 11-20-2023 BP CONTROLLED (<130/80) BP CONTROLLE D (<130/80) [facility] Start: 09-07-2023 BP CONTROLLED (<130/80) BP CONTROLLE D (<130/80) [facility] Start: 08-13-2023 HEMOGLOBIN/HEMATOCRIT HEMOGLOBIN/HEM ATOCRIT [facility] Start: 08-13-2023 SERUM CREATININE SERUM CREATININE Cl [facility] Start: 08-09-2023 ANNUAL PCP TEAM PHOTOGRAPHIC ARTIST MARLENE DISEASE VISIT ANNUAL PCP TEAM CHRONIC DISEASE VISIT [facility] Start: 08-09-2023 BP CONTROLLED (<130/80) BP CONTROLLE D (<130/80) [facility] Start: 07-12-2023 ANNUAL PCP TEAM PHOTOGRAPHIC ARTIST MARLENE DISEASE VISIT ANNUAL PCP TEAM CHRONIC DISEASE VISIT [facility] Start: 07-12-2023 BP CONTROLLED (<130/80) BP CONTROLLE D (<130/80) [facility] Start: 06-03-2023 Anes dx/ther nerve block/injection prone pos ANESTH N BLOCK/INJ PRONE [facility] Start: 06-03-2023 Njx dx/ther sbst int rlmnr lmbr/sac w/img gdn NJX INTERLAMINAR LMBR/SAC [facility] Start: 06-03-2023 Injection using fluoroscopic guidance [facility] Start: 06-03-2023 Patient discharge [facility] Start: 04-17-2023 BP CONTROLLED (<130/80) BP CONTROLLE D (<130/80) [facility] Start: 04-16-2023 ANNUAL PCP TEAM PHOTOGRAPHIC ARTIST MARLENE DISEASE VISIT ANNUAL PCP TEAM CHRONIC DISEASE VISIT [facility] Start: 04-06-2023 Adult depression scr eening assessment DEPRESSION SCREENING [facility] Start: 04-06-2023 ANNUAL PCP TEAM PHOTOGRAPHIC ARTIST MARLENE DISEASE VISIT ANNUAL PCP TEAM CHRONIC DISEASE VISIT [facility] Start: 04-06-2023 BP CONTROLLED (<130/80) BP CONTROLLE D (<130/80) [facility] Start: 03-30-2023 3 comp foot exam completed DIABETIC FOOT EXAM [facility] Start: 03-15-2023 Influenza vaccination INFLUENZA (#1) [facility] Start: 03-07-2023 Adult depression scr eening assessment DEPRESSION SCREENING [facility] Start: 03-07-2023 ANNUAL PCP TEAM PHOTOGRAPHIC ARTIST MARLENE DISEASE VISIT ANNUAL PCP TEAM CHRONIC DISEASE VISIT [facility] Start: 03-07-2023 BP CONTROLLED (<130/80) BP CONTROLLE D (<130/80) [facility] Start: 03-07-2023 SERUM CREATININE SERUM CREATININE Cl [facility] Start: 03-05-2023 BP CONTROLLED (<130/80) BP CONTROLLE D (<130/80) [facility] Start: 03-02-2023 Hepatitis B screening URINE ALBUMIN:CREATININE RATIO [facility] Start: 02-13-2023 Patient discharge [facility] Start: 02-12-2023 Care regimes management [facility] Start: 02-12-2023 Notification of physician [facility] Start: 02-12-2023 [facility] Start: 02-12-2023 Blood culture [facility] Start: 02-12-2023 End: 02-12-2023 [facility] Start: 02-11-2023 End: 02-11-2023 Blood culture [facility] Start: 02-11-2023 Assessment of risk o f venous thromboembolism [facility] Start: 02-11-2023 Consultation [facility] Start: 02-11-2023 Insertion of cathete r into peripheral vein [facility] Start: 02-11-2023 Providing care accor ding to standard [facility] Start: 02-11-2023 Provision of activit y privileges [facility] Start: 02-11-2023 Referral to occupati onal therapist [facility] Start: 02-11-2023 Referral to service [facility] Start: 02-11-2023 [facility] Start: 02-11-2023 Admission procedure [facility] Start: 02-11-2023 [facility] Start: 02-11-2023 Patient referral to dietitian [facility] Start: 02-10-2023 End: 02-10-2023 [facility] Start: 02-10-2023 End: 02-10-2023 Blood culture [facility] Start: 02-10-2023 Hemoglobin A1c/Hemoglobin.total in Blood HBA1C [facility] Start: 02-05-2023 Patient discharge [facility] Start: 02-04-2023 Assessment of risk o f venous thromboembolism [facility] Start: 02-04-2023 Bedrest [facility] Start: 02-04-2023 Elevation of head of bed [facility] Start: 02-04-2023 Taking patient vital signs [facility] Start: 02-04-2023 Wound care [facility] Start: 02-04-2023 [facility] Start: 02-04-2023 Catheterization of vein [facility] Start: 02-04-2023 Notification of physician [facility] Start: 02-04-2023 [facility] Start: 02-01-2023 Catheterization of vein [facility] Start: 02-01-2023 Notification of physician [facility] Start: 02-01-2023 [facility] Start: 02-01-2023 [facility] Start: 01-30-2023 Referral to clean energy policy analyst [facility] Start: 01-30-2023 End: 01-30-2023 Administration of blood product [facility] Start: 01-29-2023 Speech therapy assessment [facility] Start: 01-29-2023 [facility] Start: 01-28-2023 End: 01-29-2023 [facility] Start: 01-27-2023 Application of intermittent pneumatic compression device [facility] Start: 01-27-2023 Following clinical p athway protocol [facility] Start: 01-27-2023 Methicillin resistan t Staphylococcus aureus screening test [facility] Start: 01-27-2023 Aspiration precautions [facility] Start: 01-27-2023 Assessment of risk o f venous thromboembolism [facility] Start: 01-27-2023 Care regimes management [facility] Start: 01-27-2023 Fall prevention [facility] Start: 01-27-2023 Insertion of cathete r into peripheral vein [facility] Start: 01-27-2023 Introduction of urin barrington catheter [facility] Start: 01-27-2023 Measuring intake and output [facility] Start: 01-27-2023 Providing care accor ding to standard [facility] Start: 01-27-2023 Provision of activit y privileges [facility] Start: 01-27-2023 Referral to gastroenterology service [facility] Start: 01-27-2023 Referral to occupati onal therapist [facility] Start: 01-27-2023 Referral to service [facility] Start: 01-27-2023 [facility] Start: 01-27-2023 Admission procedure [facility] Start: 01-27-2023 CT Chest and Abdomen and Pelvis WO and W contrast IV [facility] Start: 01-27-2023 CT of thorax, abdome n and pelvis with contrast CTA Chst, Abd, Pel W and/or WO [facility] Start: 01-27-2023 Blood chemistry [facility] Start: 01-27-2023 End: 01-28-2023 [facility] Start: 01-27-2023 Patient referral to dietitian [facility] Start: 01-26-2023 Patient discharge [facility] Start: 01-24-2023 Speech therapy assessment [facility] Start: 01-24-2023 Speech therapy assessment [facility] Start: 01-22-2023 Referral to clean energy policy analyst [facility] Start: 01-21-2023 Administration of bl ood product [facility] Start: 01-21-2023 Catheterization of vein [facility] Start: 01-21-2023 Application of intermittent pneumatic compression device [facility] Start: 01-21-2023 Following clinical p athway protocol [facility] Start: 01-21-2023 Care regimes management [facility] Start: 01-21-2023 Notification of physician [facility] Start: 01-21-2023 Cardiac monitoring [facility] Start: 01-21-2023 Referral to gastroenterology service [facility] Start: 01-21-2023 End: 01-21-2023 [facility] Start: 01-21-2023 Oxygen therapy [facility] Start: 01-21-2023 Ambulation without limitation [facility] Start: 01-21-2023 Documentation procedure [facility] Start: 01-21-2023 Assessment of risk o f venous thromboembolism [facility] Start: 01-21-2023 Continuous pulse oximetry [facility] Start: 01-21-2023 Insertion of cathete r into peripheral vein [facility] Start: 01-21-2023 Measuring intake and output [facility] Start: 01-21-2023 Providing care accor ding to standard [facility] Start: 01-21-2023 Referral to occupati onal therapist [facility] Start: 01-21-2023 Referral to service [facility] Start: 01-21-2023 Verification routine [facility] Start: 01-21-2023 Vital signs measurements [facility] Start: 01-21-2023 Admission procedure [facility] Start: 01-21-2023 Transfusion of red b lood cells [facility] Start: 01-08-2023 Patient discharge [facility] Start: 01-05-2023 BP CONTROLLED (<130/80) BP CONTROLLE D (<130/80) [facility] Start: 01-05-2023 Admission procedure [facility] Start: 01-05-2023 Telepractice consultation [facility] Start: 01-04-2023 Application of intermittent pneumatic compression device [facility] Start: 01-04-2023 Following clinical p athway protocol [facility] Start: 01-04-2023 Aspiration precautions [facility] Start: 01-04-2023 Assessment of risk o f venous thromboembolism [facility] Start: 01-04-2023 Cardiac monitoring [facility] Start: 01-04-2023 Care regimes management [facility] Start: 01-04-2023 Catheterization of vein [facility] Start: 01-04-2023 Elevation of head of bed [facility] Start: 01-04-2023 Exercises [facility] Start: 01-04-2023 Fall prevention [facility] Start: 01-04-2023 Inhalation therapy procedure [facility] Start: 01-04-2023 Insertion of cathete r into peripheral vein [facility] Start: 01-04-2023 Introduction of urin barrington catheter [facility] Start: 01-04-2023 Measuring intake and output [facility] Start: 01-04-2023 Notification of physician [facility] Start: 01-04-2023 Providing care accor ding to standard [facility] Start: 01-04-2023 Provision of activit y privileges [facility] Start: 01-04-2023 Referral to occupati onal therapist [facility] Start: 01-04-2023 Referral to service [facility] Start: 01-04-2023 Tobacco use cessatio n education [facility] Start: 01-04-2023 Verification routine [facility] Start: 01-04-2023 Admission procedure [facility] Start: 01-04-2023 End: 01-04-2023 [facility] Start: 01-04-2023 End: 01-04-2023 Blood culture [facility] Start: 01-04-2023 Patient referral to dietitian [facility] Start: 01-01-2023 ANNUAL PCP TEAM PHOTOGRAPHIC ARTIST MARLENE DISEASE VISIT ANNUAL PCP TEAM CHRONIC DISEASE VISIT [facility] Start: 01-01-2023 BP CONTROLLED (<130/80) BP CONTROLLE D (<130/80) [facility] Start: 01-01-2023 Hepatitis B surface antibody level LDL CHOLESTEROL [facility] Start: 01-01-2023 SERUM CREATININE SERUM CREATININE [facility] Start: 12-14-2022 ANNUAL PCP TEAM PHOTOGRAPHIC ARTIST MARLENE DISEASE VISIT ANNUAL PCP TEAM CHRONIC DISEASE VISIT [facility] Start: 12-08-2022 ANNUAL PCP TEAM PHOTOGRAPHIC ARTIST MARLENE DISEASE VISIT ANNUAL PCP TEAM CHRONIC DISEASE VISIT [facility] Start: 12-08-2022 BP CONTROLLED (<130/80) BP CONTROLLE D (<130/80) [facility] Start: 09-06-2022 ANNUAL PCP TEAM PHOTOGRAPHIC ARTIST MARLENE DISEASE VISIT ANNUAL PCP TEAM CHRONIC DISEASE VISIT [facility] Start: 09-02-2022 Hemoglobin A1c/Hemoglobin.total in Blood HBA1C [facility] Start: 08-30-2022 SERUM CREATININE SERUM CREATININE [facility] Start: 08-09-2022 End: 10-09-2022 CBC W Auto Differential panel - Blood CBC + DIFF Lab Routine Type 2 diabetes mellitus with diabetic neuropathy, with long-term current use of insulin (HCC) Expected: 08/09/2022, Expires: 10/09/2022 [facility] Work Phone: Comment on above: Expected: 08/09/2022 , Expires: 10/09/2022 Start: 08-09-2022 End: 10-09-2022 Comprehensive metabolic 2000 panel - Serum or Plasma COMP METABOLIC PANEL Lab Routine Type 2 diabetes mellitus with diabetic neuropathy, with long-term current use of insulin (HCC) Expected: 08/09/2022, Expires: 10/09/2022 [facility] Work Phone: Comment on above: Expected: 08/09/2022 , Expires: 10/09/2022 Start: 08-09-2022 End: 10-09-2022 Hemoglobin A1c in Blood HGB A1C Lab Routine Type 2 diabetes mellitus with diabetic neuropathy, with long-term current use of insulin (HCC) Expected: 08/09/2022, Expires: 10/09/2022 [facility] Work Phone: Comment on above: Expected: 08/09/2022 , Expires: 10/09/2022 Start: 08-06-2022 COVID-19 VACCINE (6 - Pfizer series) COVID-19 VACCINE (6 - Pfizer series) [facility] Start: 07-15-2022 ADVANCE DIRECTIVE DISCUSSION ADVANCE DIRECTIVE DISCUSSION [facility] Start: 07-15-2022 DEPRESSION ASSESSMENT DEPRESSION ASS ESSMENT [facility] Start: 07-11-2022 Patient discharge [facility] Work Phone: Start: 07-11-2022 Referral to service [facility] Work Phone: Start: 07-10-2022 [facility] Work Phone: Start: 07-10-2022 Following clinical p athway protocol [facility] Work Phone: Start: 07-10-2022 Assessment of risk o f venous thromboembolism [facility] Work Phone: Start: 07-10-2022 Cardiac monitoring [facility] Work Phone: Start: 07-10-2022 Care regimes management [facility] Work Phone: Start: 07-10-2022 Catheterization of vein [facility] Work Phone: Start: 07-10-2022 Continuous pulse oximetry [facility] Work Phone: Start: 07-10-2022 Elevation of head of bed [facility] Work Phone: Start: 07-10-2022 Exercises [facility] Work Phone: Start: 07-10-2022 Fall prevention [facility] Work Phone: Start: 07-10-[address]ed interventions [facility] Work Phone: Start: 07-10-2022 Incentive spirometry [facility] Work Phone: Start: 07-10-2022 Insertion of cathete r into peripheral vein [facility] Work Phone: Start: 07-10-2022 Introduction of urin barrington catheter [facility] Work Phone: Start: 07-10-2022 Measuring intake and output [facility] Work Phone: Start: 07-10-2022 Notification of physician [facility] Work Phone: Start: 07-10-2022 Oxygen therapy [facility] Work Phone: Start: 07-10-2022 Providing care accor ding to standard [facility] Work Phone: Start: 07-10-2022 Provision of activit y privileges [facility] Work Phone: Start: 07-10-2022 Referral to clean energy policy analyst [facility] Work Phone: Start: 07-10-2022 Referral to occupati onal therapist [facility] Work Phone: Start: 07-10-2022 Referral to service [facility] Work Phone: Start: 07-10-2022 Tobacco use cessatio n education [facility] Work Phone: Start: 07-10-2022 [facility] Work Phone: Start: 07-10-2022 Patient referral to dietitian [facility] Work Phone: Start: 07-09-2022 Admission procedure [facility] Work Phone: Start: 03-15-2022 HEMOGLOBIN/HEMATOCRIT HEMOGLOBIN/HEM ATOCRIT [facility] Start: 03-15-2022 Influenza vaccination INFLUENZA (#1) [facility] Start: 03-07-2022 End: 05-07-2022 Comprehensive metabolic 2000 panel - Serum or Plasma [facility] Work Phone: Comment on above: Expected: 03/07/2022 , Expires: 05/07/2022 Start: 03-02-2022 [facility] Work Phone: Start: 02-27-2022 Hemoglobin A1c/Hemoglobin.total in Blood HBA1C [facility] Start: 02-20-2022 Hepatitis C antibody , confirmatory test DILATED RETINAL EXAM [facility] Start: 01-30-2022 End: 04-01-2022 ALBUMIN/CREAT RATIO RND UR ALBUMIN/CREAT RATIO RND UR Lab Routine Type 2 diabetes mellitus with stage 3 chronic kidney disease, with long-term current use of insulin (HCC) Expected: 01/30/2022, Expires: 04/01/2022 [facility] Work Phone: Comment on above: Expected: 01/30/2022 , Expires: 04/01/2022 Start: 01-30-2022 End: 04-01-2022 Hemoglobin A1c in Blood HGB A1C Lab Routine Type 2 diabetes mellitus with stage 3 chronic kidney disease, with long-term current use of insulin (HCC) Expected: 01/30/2022, Expires: 04/01/2022 [facility] Work Phone: Comment on above: Expected: 01/30/2022 , Expires: 04/01/2022 Start: 01-30-2022 End: 04-01-2022 SCHEDULE LAB TESTING SCHEDULE LAB TESTING Lab Routine Expected: 01/30/2022, Expires: 04/01/2022 [facility] Work Phone: Comment on above: Expected: 01/30/2022 , Expires: 04/01/2022 Start: 01-05-2022 End: 03-07-2022 Magnesium [Mass/volume] in Serum or Plasma MAGNESIUM BLD Lab Routine Altered mental status, unspecified altered mental status type Expected: 01/05/2022, Expires: 03/07/2022 [facility] Work Phone: Comment on above: Expected: 01/05/2022 , Expires: 03/07/2022 Start: 01-05-2022 End: 03-07-2022 Methylmalonate [Moles/volume] in Serum or Plasma METHYLMALONIC ACID Lab Routine Altered mental status, unspecified altered mental status type Expected: 01/05/2022, Expires: 03/07/2022 [facility] Work Phone: Comment on above: Expected: 01/05/2022 , Expires: 03/07/2022 Start: 01-01-2022 End: 03-03-2022 25-hydroxyvitamin D3 [Mass/volume] in Serum or Plasma [facility] Work Phone: Comment on above: Expected: 01/01/2022 , Expires: 03/03/2022 Start: 01-01-2022 End: 03-03-2022 Lipid 1996 panel - Serum or Plasma [facility] Work Phone: Comment on above: Expected: 01/01/2022 , Expires: 03/03/2022 Start: 12-30-2021 Blood chemistry [facility] Work Phone: Start: 12-29-2021 Patient discharge [facility] Work Phone: Start: 12-28-2021 Admission procedure [facility] Work Phone: Start: 12-27-2021 End: 12-28-2021 [facility] Work Phone: Start: 12-27-2021 Oxygen therapy [facility] Work Phone: Start: 12-27-2021 Incentive spirometry [facility] Work Phone: Start: 12-27-2021 Admission procedure [facility] Work Phone: Start: 12-27-2021 Assessment of risk o f venous thromboembolism [facility] Work Phone: Start: 12-27-2021 Following clinical p athway protocol [facility] Work Phone: Start: 12-27-2021 Insertion of cathete r into peripheral vein [facility] Work Phone: Start: 12-27-2021 Measuring intake and output [facility] Work Phone: Start: 12-27-2021 Providing care accor ding to standard [facility] Work Phone: Start: 12-27-2021 End: 12-27-2021 Referral to service [facility] Work Phone: Start: 12-06-2021 Bacteria identified in Blood by Culture Blood Culture [facility] Work Phone: Start: 11-23-2021 3 comp foot exam completed DIABETIC FOOT EXAM [facility] Start: 11-16-2021 Hepatitis B screening URINE ALBUMIN:CREATININE RATIO [facility] Start: 11-16-2021 Hepatitis B surface antibody level LDL CHOLESTEROL [facility] Start: 10-28-2021 Adult depression scr eening assessment DEPRESSION SCREENING [facility] Start: 09-15-2021 COVID-19 VACCINE (4 - Booster for Pfizer series) COVID-19 VACCINE (4 - Booster for Pfizer series) [facility] Start: 07-15-2021 ADVANCE DIRECTIVE DISCUSSION ADVANCE DIRECTIVE DISCUSSION [facility] Start: 07-15-2021 DEPRESSION ASSESSMENT DEPRESSION ASS ESSMENT [facility] Start: 03-12-2021 Colonoscopy COLONOSCOPY [facility] Start: 03-12-2021 COLORECTAL CANCER SCREENING COLORECTAL CANCER SCREENING [facility] Start: 12-25-2020 Urine microalbumin profile DTA P,TDAP,TD (3 - Td or Tdap) [facility] Start: 10-12-1992 COLOGUARD (FIT-DNA) COLOGUARD (FIT-D NA) [facility] Start: 10-12-[address] COLONOGRAPHY [facility] Start: 10-12-1992 FECAL OCCULT BLOOD FECAL OCCULT BLOO D [facility] Start: 10-12-1992 SIGMOIDOSCOPY SIGMOIDOSCOPY [facility] Start: 10-12-1965 BP CONTROLLED (<130/80) BP CONTROLLE D (<130/80) [facility] Acid fast bacilli culture [facility] Alanine aminotransfe rase [Enzymatic activity/volume] in Serum or Plasma [facility] Aspartate aminotrans ferase [Enzymatic activity/volume] in Serum or Plasma [facility] Bacteria identified in Blood by Culture Blood Culture [facility] Bacteria identified in Urine by Culture Urine Culture [facility] Creatine kinase [Enz ymatic activity/volume] in Serum or Plasma [facility] End: 01-05-2023 EPIL EEG ROUTINE EPIL EEG ROUTINE NEUROLOGY Routine Altered mental status, unspecified altered mental status type 1 Occurrences starting 01/05/2022 until 01/05/2023 [facility] Work Phone: Comment on above: 1 Occurrences starti ng 01/05/2022 until 01/05/2023 Fungus identified in Unspecified specimen by Culture [facility] Fungus identified in Unspecified specimen by Fungus stain [facility] Lipid 1996 panel - S chavez or Plasma [facility] Magnesium [Mass/volu me] in Serum or Plasma [facility] Magnesium [Mass/volu me] in Serum or Plasma [facility] Mycobacterium sp identified in Unspecified specimen by Organism specific culture [facility] Mycobacterium sp identified in Unspecified specimen by Organism specific culture [facility] Patient Education [facility] Work Phone: Patient referral [facility] Work Phone: PT PLAN OF CARE CERTIFICATION PT PLAN OF CARE CERTIFICATION Procedures Routine Abnormality of gait due to impairment of balance Ordered: 01/12/2022 [facility] Comment on above: Ordered: 01/12/2022 PT PLAN OF CARE CERTIFICATION PT PLAN OF CARE CERTIFICATION Procedures Routine Abnormality of gait due to impairment of balance Ordered: 03/09/2022 [facility] Comment on above: Ordered: 03/09/2022 SURGICAL PATHOLOGY [facility] Work Phone: Comment on above: Release Upon Orderin g for 1 Occurrences starting 10/10/2021, 1 completed Urine culture [facility] Urine culture [facility] [place] Immunizations Immunization Date Immunization Notes Care Provider Fa zacharyty 04-06-2022 COVID-19 booster vaccine, age 12+ yr, bivalent (PFIZER-BIONTECH) Roselia Madrigal 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 Luis Caldera MD Work Phone: [facility] 04-06-2022 influenza, high dose seasonal, preservative-free Dr. Maggy Roberts Work Phone: [facility] 04-06-2022 influenza, high-dose , quadrivalent vaccine (FLUZONE HIGH DOSE QUADRIVALENT) Roselia Madrigal FR[employer] DESK PERSON.MANAGER [employer]ATION Work Phone: [facility] 03-28-2022 influenza, injectabl e, quadrivalent, preservative free Dr. Maggy Roberts Work Phone: [facility] 03-28-2022 influenza, seasonal, injectable Dr. Maggy Roberts Work Phone: [facility] 06-14-2021 Influenza, high dose seasonal Dr. Luis Caldera MD Work Phone: [facility] 06-14-2021 influenza, high dose seasonal, preservative-free Dr. Maggy Roberts Work Phone: [facility] 06-14-2021 influenza, high-dose , quadrivalent vaccine (FLUZONE HIGH DOSE QUADRIVALENT) Abdulaziz Caldera MD Work Phone: [facility] Work Phone: 05-18-2021 Covid (Pfizer) Dr. Maggy Roberts Work Phone: [facility] 02-24-2021 zoster vaccine recombinant Abdulaziz Caldera MD Work Phone: [facility] 12-13-2020 Covid (Pfizer) Dr. Ramón Caldera Work Phone: [facility] 03-19-2021 COVID-19 vaccine, ag e 12+ yr (PFIZER-BIONTECH - PURPLE TOP) Abdulaziz Caldera MD Work Phone: [facility] 09-09-2020 COVID-19 vaccine, ag e 12+ yr (PFIZER-BIONTECH - PURPLE TOP) Abdulaziz Caldera MD Work Phone: [facility] 04-16-2020 Influenza, high dose seasonal Dr. Luis Caldera MD Work Phone: [facility] 04-16-2020 influenza, high dose seasonal, preservative-free Dr. Maggy Roberts Work Phone: [facility] 04-16-2020 influenza, high-dose , quadrivalent vaccine (FLUZONE HIGH DOSE QUADRIVALENT) Abdulaziz Caldera MD Work Phone: [facility] 03-14-2020 zoster vaccine recombinant Abdulaziz Caldera MD Work Phone: [facility] Work Phone: 04-02-2019 Influenza, high dose seasonal Dr. Luis Caldera MD Work Phone: [facility] 04-02-2019 influenza, high dose seasonal, preservative-free Abdulaziz Caldera MD Work Phone: [facility] Work Phone: 05-08-2018 Influenza virus vaccine [facility] 04-15-2018 Influenza, high dose seasonal Dr. Luis Caldera MD Work Phone: [facility] 04-15-2018 influenza, high dose seasonal, preservative-free Abdulaziz Caldera MD Work Phone: [facility] 06-13-2017 Influenza, high dose seasonal Dr. Luis Caldera MD Work Phone: [facility] 06-13-2017 influenza, high dose seasonal, preservative-free Abdulaziz Caldera MD Work Phone: [facility] 06-20-2016 influenza, high dose seasonal, preservative-free Abdulaziz Caldera MD Work Phone: [facility] 11-24-2015 pneumococcal polysaccharide vaccine, 23 valent Abdulaziz Caldera MD Work Phone: [facility] 05-16-2015 Influenza, high dose seasonal Dr. Luis Caldera MD Work Phone: [facility] 05-16-2015 influenza, high dose seasonal, preservative-free Abdulaziz Caldera MD Work Phone: [facility] 10-27-2014 pneumococcal conjuga te vaccine, 13 valent Abdulaziz Caldera MD Work Phone: [facility] 10-27-2014 zoster vaccine, live Socrates Caldera MD Work Phone: [facility] 04-14-2013 Influenza virus vaccine [facility] 06-11-2011 influenza virus vaccine, unspecified formulation Abdulaziz Caldera MD Work Phone: [facility] 12-25-2010 tetanus toxoid, redu veronika diphtheria toxoid, and acellular pertussis vaccine, adsorbed Abdulaziz Cadlera MD Work Phone: [facility] 04-25-2009 pneumococcal polysaccharide vaccine, 23 valent Abdulaziz Caldera MD Work Phone: [facility] 03-21-2000 diphtheria and tetan us toxoids, adsorbed for pediatric use Abdulaziz Caldera MD Work Phone: [facility] Work Phone: 02-11-1961 poliovirus vaccine, inactivated Abdulaziz Caldera MD Work Phone: [facility] Work Phone: 03-25-1959 poliovirus vaccine, inactivated Abdulaziz Caldera MD Work Phone: [facility] Work Phone: 10-16-1956 poliovirus vaccine, inactivated Abdulaziz Caldera MD Work Phone: [facility] Work Phone: 01-12-1956 poliovirus vaccine, inactivated Abdulaziz Caldera MD Work Phone: [facility] Work Phone: 12-03-1955 poliovirus vaccine, inactivated Abdulaziz Caldera MD Work Phone: [facility] Work Phone: Payers Date Payer Category Payer Self-pay [id number] 2021 Medicare [id number] 2021 Unknown [id number] 2012 Unknown HOSPITAL/MEDICAL GENERIC MEDICAL GENERIC [id number] 2012-Present [phone] [place] [address] Indemnity [id number] 2012 Unknown HOSPITAL/MEDICAL GENERIC MEDICAL GENERIC [id number] 2012-Present [phone] [address] [place] [address] Indemnity [id number] 2012 Medicare MEDICARE MEDICAR E A AND B [id number] 2012-Present [phone] [place] [address] Medicare [id number] [id number] 2012 Medicare MEDICARE MEDICAR E A AND B [id number] 2012-Present [phone] [place] [address] Medicare [id number] [id number] 1945 Unknown [id number] 2.16.840.1.961707.3.579.2.627 Unknown [id number] 2.16.840.1.851676.3.579.2.462 Unknown [id number] 2.16.840.1.779818.3.579.2.462 Unknown [id number] 2.16.840.1.143595.3.579.2.462 Unknown [id number] 2.16.840.1.313153.3.579.2.462 Unknown [id number] 2.16.840.1.271527.3.579.2.462 Unknown [id number] 2.16.840.1.672700.3.579.2.462 Unknown [id number] 2.16.840.1.640106.3.579.2.462 Unknown [id number] 2.16.840.1.157354.3.579.2.462 Unknown [id number] 2.16840.1.416275.3.579.2.462 Unknown [id number] 2.16.840.1.365609.3.579.2.462 Unknown [id number] 2.16.840.1.516747.3.579.2.462 Unknown [id number] 2.16.840.1.310933.3.579.2.462 Unknown [id number] 2.16.840.1.470490.3.579.2.462 Unknown [id number] 2.16.840.1.314459.3.579.2.462 Unknown [id number] 2.16.840.1.719660.3.579.2.462 Unknown [id number] 2.16.840.1.080733.3.579.2.462 Unknown [id number] 2.16.840.1.695754.3.579.2.462 Unknown [id number] 2.16.840.1.814267.3.579.2.462 Unknown [id number] 2.16.840.1.644357.3.579.2.462 Unknown [id number] 2.16840.1.257747.3.579.2.462 Unknown [id number] 2.840.1.390413.3.579.2.462 Unknown [id number] 2.16840.1.922669.3.579.2.462 Unknown [id number] 2.840.1.825060.3.579.2.462 Unknown [id number] 2.840.1.081419.3.579.2.462 Unknown [id number] 2.840.1.836846.3.579.2.462 Unknown [id number] 2.840.1.831910.3.579.2.462 Unknown [id number] 2.840.1.041571.3.579.2.462 Unknown [id number] 2.840.1.529804.3.579.2.462 Unknown [id number] 2.840.1.228231.3.579.2.462 Unknown [id number] 2.840.1.055530.3.579.2.462 Unknown [id number] 2.840.1.812886.3.579.2.462 Unknown [id number] 2.840.1.833478.3.579.2.462 Unknown [id number] 2.840.1.461831.3.579.2.462 Unknown [id number] 2.840.1.505534.3.579.2.462 Unknown [id number] 2.840.1.876940.3.579.2.462 Unknown [id number] 2.840.1.421680.3.579.2.462 Unknown [id number] 2.840.1.691924.3.579.2.462 Unknown [id number] 2.840.1.324665.3.579.2.462 Unknown [id number] 2.16.840.1.228134.3.579.2.462 Unknown [id number] 2.16.840.1.191210.3.579.2.462 Unknown [id number] 2.16.840.1.816393.3.579.2.462 Unknown [id number] 2.16.840.1.924488.3.579.2.462 Unknown [id number] 2.16.840.1.916885.3.579.2.462 Unknown [id number] 2.16.840.1.152829.3.579.2.462 Unknown [id number] 2.16.840.1.766672.3.579.2.462 Unknown [id number] 2.16.840.1.761596.3.579.2.462 Unknown [id number] 2.16.840.1.024613.3.579.2.462 Unknown [id number] 2.16.840.1.680268.3.579.2.462 Social History Date Type Detail Facility Start: 11-23-2020 End: 02-27-2025 Tobacco smoking status NHIS Never smoked tobacco [facility] Start: 09-06-2021 End: 12-03-2022 Alcohol intake Current non-drinker of alcohol (finding) [facility] Start: 1945 Sex Assigned At Not on file [facility] Start: 08-07-2021 End: 04-17-2022 Exposure to SARS-CoV-2 (event) Not sure [facility] Start: 12-06-2021 End: 05-30-2023 Tobacco smoking status NHIS Unknown if ever smoked [facility] Start: 01-10-2019 Spouse/ Signif icant Other [facility] Start: 1945 Sex Assigned At Male [facility] Work Phone: Tobacco smoking status No Smokin g Status Entered [facility] Start: 01-02-2022 End: 01-12-2022 Exposure to SARS-CoV-2 (event) Unable to assess [facility] Work Phone: Start: 11-23-2020 End: 04-06-2022 Tobacco use and exposure Smokeless tobacco non-user [facility] Work Phone: Start: 09-16-2013 Rare [facility] Start: 09-16-2013 None [facility] Start: 09-16-2013 Non-smoker [facility] Start: 11-19-2022 End: 12-03-2022 History of Social function [facility] Work Phone: Start: 11-19-2022 End: 12-03-2022 Tobacco use panel [facility] Work Phone: Adult Depression Screening Assessment 2 [facility] Work Phone: Start: 10-15-2024 End: 10-22-2024 Sex Male (finding) [facility] Medical Equipment Procedure Code Equipment Code [...] ABS FDA Start: 03-28-2018 FDA Start: 03-28-2018 ([id number]) [id number] FDA Start: 02-04-2023 ([id number]) ()[id number] FDA Start: 02-04-2023 ([id number]) [id number] FDA Start: 02-04-2023 FDA Start: 03-28-2018 [...] Assessment Result Facility 02-11-2025 Functional status Bedrest [facility] Work Phone: 02-13-2023 Functional status Bedrest [facility] Work Phone: 02-05-2023 Functional status Chair [facility] Work Phone: 02-04-2023 Functional status Bedrest [facility] Work Phone: 01-26-2023 Functional status Chair mode [facility] Work Phone: 01-26-2023 Functional status With Assist of 2;Bedres t [facility] Work Phone: 01-25-2023 Functional status None [facility] Work Phone: 01-08-2023 Functional status Chair [facility] Work Phone: 07-11-2022 Functional status Ambulates [facility] Work Phone: 12-29-2021 Functional status Chair [facility] Work Phone: Mental Status Date Assessment Result Facility 02-27-2025 Cognitive function Voice/Name [facility] Work Phone: 02-11-2025 Cognitive function Voice/Name;To uch/Shaking;Light Pain;Deep Pain [facility] Work Phone: 02-02-2025 Cognitive function Level Of Cons ciousness Lethargic [facility] Work Phone: 02-02-2025 Cognitive function Voice/Name;Touch/Shaki ng [facility] Work Phone: 06-03-2023 Cognitive function Voice/Name [facility] Work Phone: 02-13-2023 Cognitive function Voice/Name [facility] Work Phone: 02-11-2023 Cognitive function Awake;Drowsy [facility] Work Phone: 02-10-2023 Cognitive function Awake;Appropr iate;Follows Commands;Drowsy [facility] Work Phone: 02-05-2023 Cognitive function Voice/Name [facility] Work Phone: 02-04-2023 Cognitive function Appropriate;[facility] Work Phone: 01-26-2023 Cognitive function Voice/Name [facility] Work Phone: 01-21-2023 Cognitive function Level Of Cons ciousness Drowsy;Lethargic [facility] Work Phone: 01-08-2023 Cognitive function Voice/Name [facility] Work Phone: 01-04-2023 Cognitive function Voice/Name [facility] Work Phone: 07-11-2022 Cognitive function Voice/Name [facility] Work Phone: 07-10-2022 Cognitive function Appropriate;Cooperativ e [facility] Work Phone: 03-02-2022 Cognitive function Voice/Name [facility] Work Phone: 12-29-2021 Cognitive function Voice/Name [facility] Work Phone: 12-06-2021 Cognitive function Level Of Cons ciousness Awake;Alert;Appropriate [facility] Work Phone: Clinical Notes 10-25-2014 to 03-22-2025 Note Date & Type Note Facility 03-22-2025 Procedure note [facility] 02-27-2025 Discharge summary Note Date/Time February 27, 2025 9:28pm [facility] Medical Records Department [address] [place] [address] Emergency Department Summary 02/27/25 MR#: [id number] Acct: [id number] Name: RICHARD ROY Rep #:[id number] : 1945 79 From: Bennett Troncoso DO PCP: Kuldip Cosby 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 Reading Location: [facility] Brain CT 02/27/25 20:00 IMPRESSION: No acute abnormality. Maxillary sinus mucosal thickening Reading Location: [facility] [address] Chest X-Ray 02/27/25 20:20 IMPRESSION: No evidence of acute cardiopulmonary disease. Reading Location: [facility] Discharge Plan Triage Chief Complaint: Alt [...] PRN (Reason: Insomnia) Patient Comments: PRN PER FDC MAR. memantine 10 mg Tablet 10 mg PO BID Qty: 0 0RF acetaminophen 325 mg tablet 650 mg PO .q12hrs Patient Comments: PRN PER FDC MAR bisacodyl 10 mg suppository 10 mg SC DAILY PRN (Reason: constipation) cholecalciferol (vitamin D3) [...] worsening symptoms or any concerns. Print Language: Austrian Disposition Disposition: Home, Self Care What to do if you have Problems For any increased pain, shortness of breath, bleeding, nausea or vomiting, chestpain, or any unexpected problems, contact your Primary Care Provider. Call [facility] ([phone]) or report to the closest Emergency Room. Call 911 if necessary. 02/27/252127 <Electronically signed by Bennett Troncoso DO> Cosigner Signature (if applicable): CC: Kuldip Cosby ~ Signed [facility] Work Phone: 1(164) 532-244808-16-2025 Radiology Diagnostic study [facility]08-16-2025 Radiology Diagnostic study [facility]08-16-2025 Radiology Diagnostic study [facility] 02-11-2025 Progress note Author Meghana Cole [facility] Note Date/Time February 11, 2025 3:45 pm [facility] Medical Records Department [address] [place] [address] Progress Note - Surgery 02/11/25 0839 MR#: [id number] Acct: [id number] Name: RICHARD ROY Rep #:[id number] : 1945 79 From: Meghana LOZA PCP: Kuldip Cosby HYDRAULIC MECHANICJay Jay Status:ADM IN Location: [place] [address] Subjective Subjective He is drowsy. He reports [...] H 02/11/25 06:54: Estim Creat Clear Calc HYDRAULIC MECHANIC Micro: Microbiology 02/05/25 Unknown Tissue - Toe [...] from discharge. Charges/Coding Visit Charges Inpatient E&M: 43212 Subs Hosp L1 02/11/25 0845 <Electronically signed by Meghana LOZA> Cosigner Signature (if applicable): 02/11/25 1545 <Electronically signed by Aneesh Ac MD> CC: ~ Signed [facility] Work Phone: 1(447) 658-516407-31-2025 Progress note Author Kee Mejia [facility] Note Date/Time February 11, 2025 3:15 pm [facility] Medical Records Department [address] [place] [address] Progress Note 02/11/25 1339 MR#: [id number] Acct: [id number] Name: RICHARD ROY Rep #:[id number] : 1945 79 From: Kee Mejia DPM PCP: Kuldip Cosby HYDRAULIC MECHANIC-C Status:ADM IN Location: [place] [id number]- [id number] Subjective Subjective Patient was seen today [...] 76.3 H, Lymph % (Auto) 9.9 L, [place] % (Auto) 7.1, Eos % (Auto) 4.1, [...] Cosigner Signature (if applicable): CC: ~ Signed [facility] Work Phone: 1(900) 719-351207-31-2025 Discharge summary Author Hugo Cervantes [facility] Note Date/Time February 11, 2025 2:52 pm [facility] Medical Records Department [address] [place] [address] Discharge Summary 02/11/25 1444 MR#: [id number] Acct: [id number] Name: RICHARD ROY Rep #:[id number] : 1945 79 From: Hugo hollis MD PCP: Kuldip Cosby Status:ADM [facility] Providers Date of Admission: 02/02/25 Primary Care Physician: AAYUSH Ross Consultations 02/03/25 01:20 Consult: Onc/Wound/punch finisher Routine Comment: Consult: Podiatry Routine Consulting Provider: [...] 10 mg SC DAILY PRN constipation 05/30/23 loperamide 2 mg [...] history who presents to the [facility] ED on 02/02/2025 with history of recent [...] to have a woundVAC placed at the senior living. His hospitalization was complicated by an ANTHONY [...] risk benefits of going home to the senior living and would like to go when able. [...] % (Auto) Cancelled, Lymph % (Auto) Cancelled, [place] % (Auto) Cancelled, Eos % (Auto) Cancelled, [...] Drop Cells Cancelled, Ovalocytes Cancelled, Stomatocytes Cancelled, [place] Bodies Cancelled, [place] Cells Cancelled, Bite Cells Cancelled, Crenated Cell [...] 76.3 H, Lymph % (Auto) 9.9 L, [place] % (Auto) 7.1, Eos % (Auto) 4.1, [...] mg PO QHS Patient Comments: PRN PER FDC MAR. memantine 10 mg Tablet 10 mg PO BID Qty: 0 0RF acetaminophen 325 mg tablet 650 mg PO .q12hrs Patient Comments: PRN PER FDC MAR bisacodyl 10 mg suppository 10 mg SC DAILY PRN (Reason: constipation) loperamide [Anti-Diarrheal (loperamide)] [...] in before D/C Order can be placed): Detention Facility Charges/Coding Visit Charges Inpatient E&M: 04519 Disch Hosp >30min 02/11/25 1452 <Electronically signed by Hugo Cervantes MD> Cosigner Signature (if applicable): CC: Dr. Hugo Cervantes MD; Kuldip Cosby~ Signed [facility] Work Phone: 1(168) 910-977107-31-2025 Discharge summary Author Hugo Cervantes [facility] Note Date/Time February 11, 2025 2:23 pm [facility] Medical Records Department [address] [place] [address] Transfer to [facility] MR#: [id number] Acct: [id number] Name: RICHARD ROY Rep #:[id number] : 1945 79 From: Hugo hollis MD PCP: Kuldip Cosby Status:ADM IN Certification of patient admission REQUIRED AT TIME OF ADMISSION. I CERTIFY THAT POST-HOSPITAL ECF SERVICES ARE REQUIRED TO BE GIVEN ON AN IN-PATIENT BASIS BECAUSE OF THE ABOVE NAMED PATIENT'S NEED FOR FDC CARE ON A CONTINUING BASIS FOR THE CONDITION(S) FOR WHICH HE/SHE WAS RECEIVING IN-PATIENT HOSPITAL SERVICES PRIOR TO HIS/HER TRANSFER TO THE [facility]. 02/11/25 1423<Electronically signed by Hugo Cervantes [...] noadded salt; consistency/texture adjustments as indicated per MDM SR. Continue Luis with breakfast and dinner to [...] mg PO QHS Patient Comments: PRN PER FDC MAR. memantine 10 mg Tablet 10 mg PO BID Qty: 0 0RF acetaminophen 325 mg tablet 650 mg PO .q12hrs Patient Comments: PRN PER FDC MAR bisacodyl 10 mg suppository 10 mg SC DAILY PRN (Reason: constipation) loperamide [Anti-Diarrheal (loperamide)] [...] in before D/C Order can be placed): Detention Facility 02/11/25 1423 <Electronically signed by Hugo Cervantes MD> Cosigner Signature (if applicable): CC: WINSOME Mejia; Dr. Karen Aly MD; Dr. Aneesh Ac MD; Dr. Smith Leija MD; Kuldip Cosby ~ [facility] Work Phone: 1(284) 685-203107-31-2025 [facility]07-31-2025 Progress note [facility] Note Date/Time February 11, 2025 10:2 8am [facility] Medical Records Department [address] [place] [address] Progress Note - Infect Disease 02/11/25 1027 MR#: [id number] Acct: [id number] Name: RICHARD ROY Rep #:[id number] : 1945 79 From: Smith mcdowell MD PCP: Kuldip Cosby HYDRAULIC MECHANIC-C Status:ADM IN Location: [place] [address] Physical Exam Narrative Angioplasty yesterday, feeling ok, [...] Cosigner Signature (if applicable): CC: ~ Signed [facility] Work Phone: 1(700) 501-338407-31-2025 Progress note Author Hugo Cervantes [facility] Note Date/Time February 11, 2025 9:30 am [facility] Medical Records Department [address] [place] [address] Progress Note - Hospitalist 02/11/25 0922 MR#: [id number] Acct: [id number] Name: RICHARD ROY Rep #:[id number] : 1945 79 From: Hugo hollis MD PCP: Kuldip Cosby HYDRAULIC MECHANIC-C Status:ADM IN Location: [place] [address] Subjective Subjective No issues overnight, had his [...] 76.3 H, Lymph % (Auto) 9.9 L, [place] % (Auto) 7.1, Eos % (Auto) 4.1, [...] DVT: Eliquis Charges/Coding Visit Charges Inpatient E&M: 60512 Subs Hosp L2 02/11/25 0216 <Electronically signed by Hugo Cervantes MD> Rudy Signature (if applicable): CC: ~ Signed [facility] Work Phone: 1(232) 435-950707-30-2025 [facility] Consult note Author Crys Carvajal [facility] Note Date/Time February 10, 2025 12:0 4pm [facility] Medical Records Department [address] [place] [address] Pharmacokinetic/Renal -Consult 02/10/25 1203 MR#: [id number] Acct: [id number] Name: RICHARD ROY Rep #:[id number] : 1945 79 From: Crys Carvajal PCP: Kuldip Cosby HYDRAULIC MECHANICLisaC Status:ADM IN Location: [place] [address] Consult Antibiotic Management Pharmacy has been consulted [...] monitor and adjust dosing as required. 02/10/25 4990 <Electronically signed by Crys Carvajal > Date _ Crys Carvajal Cosigner Signature (if applicable): Date CC: ~ Signed [facility] Work Phone: 1(157) 894-146907-30-2025 Progress note Author Hugo Cervantes [facility] Note Date/Time February 10, 2025 9:46 am [facility] Medical Records Department [address] [place] [address] Progress Note - Hospitalist 02/10/25 0942 MR#: [id number] Acct: [id number] Name: RCIHARD ROY Rep #:[id number] : 1945 79 From: Hugo hollis MD PCP: Kuldip Cosby HYDRAULIC MECHANICLisaC Status:ADM IN Location: [place] [address] Subjective Subjective No issues overnight, pending angiogram [...] 73.1 H, Lymph % (Auto) 11.0 L, [place] % (Auto) 8.5, Eos % (Auto) 4.7, [...] DVT: Eliquis Charges/Coding Visit Charges Inpatient E&M: 44261 Subs Hosp L2 02/10/25 0946 <Electronically signed by Hugo Cervantes MD> Cosigner Signature (if applicable): CC: ~ Signed [facility] Work Phone: 1(418) 562-202707-29-2025 Progress note Author Aneesh Ac [facility] Note Date/Time February 09, 2025 6:11 pm [facility] Medical Records Department [address] [place] [address] Progress Note - Surgery 02/09/25 1808 MR#: [id number] Acct: [id number] Name: RICHARD ROY Rep #:[id number] : 1945 79 From: Aneesh Ac MD PCP: Kuldip Cosby HYDRAULIC MECHANICLisaC Status:ADM IN Location: [place] [id number]- 1 Subjective Subjective Resting comfortably, eating dinner. [...] 75.5 H, Lymph % (Auto) 10.7 L, [place] % (Auto) 7.1, Eos % (Auto) 4.5, [...] eliquis tonight/AM Charges/Coding Visit Charges Inpatient E&M: 19259 Subs Hosp L2 02/09/25 1822 <Electronically signed by Aneesh Ac MD> Cosigner Signature (if applicable): CC: ~ Signed [facility] Work Phone: 1([phone]) 988-644707-29-2025 Progress note Author Smith Leija [facility] Note Date/Time February 09, 2025 10:1 7am [facility] Medical Records Department [address] [facility] [place] [address] Progress Note - Infect Disease 02/09/25 1016 MR#: [id number] Acct: [id number] Name: RICHARD ROY Rep #:[id number] : 1945 79 From: Smith mcdowell MD PCP: Kuldip Cosby HYDRAULIC MECHANICLisaC Status:ADM IN Location: [place] [address] Physical Exam Narrative Feeling fine, no pain [...] Cosigner Signature (if applicable): CC: ~ Signed [facility] Work Phone: 1(781) 868-168407-29-2025 Progress note Author Hugo Cervantes [facility] Note Date/Time February 09, 2025 9:14 am [facility] Medical Records Department [address] [place] [address] Progress Note - Hospitalist 02/09/25 0909 MR#: [id number] Acct: [id number] Name: RICHARD ROY Rep #:[id number] : 1945 79 From: Hugo hollis MD PCP: Kuldip Cosby HYDRAULIC MECHANICJay Jay Status:ADM IN Location: [place] [address] Subjective Subjective Doing well, no issues overnight. [...] 75.5 H, Lymph % (Auto) 10.7 L, [place] % (Auto) 7.1, Eos % (Auto) 4.5, [...] DVT: Eliquis Charges/Coding Visit Charges Inpatient E&M: 84129 Subs Hosp L2 02/09/25 0914 <Electronically signed by Hugo Cervantes MD> Cosigner Signature (if applicable): CC: ~ Signed [facility] Work Phone: 1(281) 479-309007-29-2025 Consult note Author Renetta Gonsales [facility] Note Date/Time February 09, 2025 7:10 am [facility] Medical Records Department [address] [place] [address] Pharmacokinetic/Renal -Consult 02/08/251930 MR#: [id number] Acct: [id number] Name: RICHARD ROY Rep #:[id number] : 1945 79 From: Renetta Gonsales PCP: Kuldip Cosby HYDRAULIC MECHANICJay Jay Status:ADM IN Y Location: [place] [address] Consult Antibiotic Management Pharmacy has been consulted [...] monitor and adjust dosing as required. 02/08/25 193 <Electronically signed by Renetta Gonsales> Date _ Renetta Gonsales 02/09/25709 <Electronically signed by Hugo painter MD> Cosigner Signature (if applicable): Date Hugo Cervantes MD CC: ~ Signed [facility] Work Phone: 1(155) 410-552107-29-2025 Progress note Author Kee Mejia [facility] Note Date/Time February 08, 2025 11:1 9pm [facility] Medical Records Department [address] [place] [address] Progress Note 02/08/251899 MR#: [id number] Acct: [id number] Name: RICHARD ROY Rep #:[id number] : 1945 79 From: Kee Mejia DPM PCP: Kuldip Cosby HYDRAULIC MECHANICJay Jay Status:ADM [facility] Subject[facility] Subjective Patient seen today for [...] 72.7 H, Lymph % (Auto) 11.5 L, [place] % (Auto) 9.5, Eos % (Auto) 4.6, [...] H 02/08/25 18:25: Vancomycin Trough 20.6 H 07/28/25 22:14: POC Glucose 135 H Micro: Microbiology [...] Discussed with Dr. Cervantes and nursing. 02/08/25 9611 <Electronically signed by Kee Mejia DPM> Kee Mejia DPM Cosigner Signature (if applicable): CC: ~ Signed [facility] Work Phone: 1([phone]) 419-348107-28-2025 Consult note Author Smith Leija [facility] Note Date/Time February 08, 2025 3:37 pm [facility] Medical Records Department [address] [place] [address] Consultation - Infectious Dx 02/08/25 1532 MR#: [id number] Acct: [id number] Name: RICHARD ROY Rep #:[id number] : 1945 79 From: Smith mcdowell MD PCP: Kuldip Cosby Status:ADM IN Location: [place] [id number] Assessment & Plan Assessment/Plan (1) Acute osteomyelitis [...] ROS due to mental status [facility] Medical History MRSA (methicillin resistant [...] 10 mg SC DAILY PRN constipation 05/30/23 Unknown History loperamide [...] thoracic aortic aneurysm repair Social History housing: senior living current occupational [...] 72.7 H, Lymph % (Auto) 11.5 L, [place] % (Auto) 9.5, Eos % (Auto) 4.6, [...] Signature (if applicable): CC: Kuldip Cosby~ Signed [facility] Work Phone: 1(381) 219-804207-28-2025 Progress note Author Hugo Cervantes [facility] Note Date/Time February 08, 2025 8:55 am [facility] Medical Records Department [address] [place] [address] Progress Note - Hospitalist 02/08/25 0827 MR#: [id number] Acct: [id number] Name: RICHARD ROY Rep #:[id number] : 1945 79 From: Hugo hollis MD PCP: Kuldip Cosby Status:ADM IN Location: [place] [address] Subjective Subjective Doing well, no issues overnight. [...] 72.7 H, Lymph % (Auto) 11.5 L, [place] % (Auto) 9.5, Eos % (Auto) 4.6, [...] DVT: Eliquis Charges/Coding Visit Charges Inpatient E&M: 25015 Subs Hosp L2 02/08/25 0855 <Electronically signed by Hugo Cervantes MD> Cosigner Signature (if applicable): CC: ~ Signed [facility] Work Phone: [phone]) [phone] Progress note Author Kee Mejia [facility] Note Date/Time February 07, 2025 9:40 am [facility] Medical Records Department [address] [place] [address] Progress Note 02/07/25912 MR#: [id number] Acct: [id number] Name: RICHARD ROY Rep #:[id number] : 1945 79 From: Kee Mejia DPM PCP: Kuldip Cosby HYDRAULIC MECHANIC-C Status:ADM IN Location: [facility] [id number]- 1 Subjective Subjective Patient was seen this [...] (Auto) 66.1, Lymph % (Auto) 15.0 L, [place] % (Auto) 9.5, Eos % (Auto) 6.8 [...] all times. Podiatry will continue to follow. 07/27/25 0940 <Electronically signed by Kee Mejia DPM> Kee Mejia DPM Cosigner Signature (if applicable): CC: ~ Signed [facility] Work Phone: 1(835) 198-254007-27-2025 Progress note Author Hugo Cervantes [facility] Note Date/Time February 07, 2025 9:32 am [facility] Medical Records Department [address] [place] [address] Progress Note - Hospitalist 02/07/25917 MR#: [id number] Acct: [id number] Name: RICHARD ROY Rep #:[id number] : 1945 79 From: Hugo hollis MD PCP: Kuldip Cosby HYDRAULIC MECHANICLisaC Status:ADM IN [facility] Subjective Subjective Doing well, wound looks [...] (Auto) 66.1, Lymph % (Auto) 15.0 L, [place] % (Auto) 9.5, Eos % (Auto) 6.8 [...] DVT: Eliquis Charges/Coding Visit Charges Inpatient E&M: 73000 Subs Hosp L2 02/07/25 0932 <Electronically signed by Hugo Cervantes MD> Cosigner Signature (if applicable): CC: ~ Signed [facility] Work Phone: [phone] 612-720907-27-2025 Consult note Author Haile Bautista [facility] Note Date/Time February 07, 2025 9:18 am [facility] Medical Records Department [address] [place] [address] Pharmacokinetic/Renal -Consult 02/06/252218 MR#: [id number] Acct: [id number] Name: RICHARD ROY Rep #:[id number] : 1945 79 From: Haile Bautista PCP: Kuldip Cosby HYDRAULIC MECHANICJay Jay Status:ADM IN Y Location: [place] [address] Consult Antibiotic Management Pharmacy has been consulted [...] Preliminary Meth. resistant Staph. 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 first assistant Gram positive organism 02/03/25 18:00 Wound - [...] [date and time ordered]: 02/07/25 @ 0600 02/06/25 2222 <Electronically signed by Haile mcdowell> Date _ Haile Bautista 02/07/25 0918 <Electronically signed by Hugo painter MD> Cosigner Signature (if applicable): Date Hugo Cervantes MD CC: ~ Signed [facility] Work Phone: [phone]) [phone] Consult note Author Haile Bautista [facility] Note Date/Time February 07, 2025 9:18 am [facility] Medical Records Department [address] [place] [address] Pharmacokinetic/Renal -Consult 02/07/25 0650 MR#: [id number] Acct: [id number] Name: RICHARD ROY Rep #:[id number] : 1945 79 From: Haile Bautista PCP: Kuldip Cosby HYDRAULIC MECHANICJay Jay Status:ADM IN Location: [place] [address] Consult Antibiotic Management Pharmacy has been consulted [...] be done on [date and time ordered]: 7/28/25 @ 1830 02/07/25 0651 <Electronically signed by Haile mcdowell> Date _ Haile Bautista 02/07/25 0918 <Electronically signed by Hugo painter MD> Cosigner Signature (if applicable): Date Hugo Cervantes MD CC: ~ Signed [facility] Work Phone: 1([phone]) 274-970607-26-2025 Consult note Author Hugo Interiano [facility] Note Date/Time February 06, 2025 4:31 pm [facility] Medical Records Department [address] [facility] [place] [address] Pharmacokinetic/Renal -Consult 02/06/25 1630 MR#: [id number] Acct: [id number] Name: RICHARD ROY Rep #:[id number] : 1945 79 From: Hugo Garcia [facility] PCP: Kuldip Cosby Status:ADM IN Location: [place] [address] Consult Antibiotic Management Pharmacy has been consulted [...] Preliminary Meth. resistant Staph. 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 first assistant Gram positive organism 02/03/25 18:00 Wound - [...] level)) 02/06/25 1631 <Electronically signed by [facility]> Date _ Hugo Interiano [facility] Cosigner Signature (if applicable): Date CC: ~ Signed [facility] Work Phone: [phone]) 347-953707-26-2025 Progress note [facility] Date/Time February 06, 2025 10:5 8am [facility] Medical Records Department [address] [place] [address] Progress Note 02/06/25 1054 MR#: [id number] Acct: [id number] Name: RICHARD ROY Rep #:[id number] : 1945 79 From: Kee Mejia DPM PCP: Kuldip Cosby Status:ADM IN Location: [place] [address] Subjective Subjective Patient was seen this morning [...] / 425 Output Total 850 / 850 / 2009 1200 / 1200 [...] 74.2 H, Lymph % (Auto) 10.1 L, [place] % (Auto) 8.6, Eos % (Auto) 5.9 [...] Preliminary Meth. resistant Staph. 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 first assistant Gram positive organism 02/03/25 18:00 Wound - [...] IMPRESSION: Postsurgical change. No complication. Reading Location: [facility] Physical Exam Const alert and no apparent [...] Signature (if applicable): Date cc: ~* Signed [facility] Work Phone: [phone]) 383-652307-26-2025 Progress note Author Hugo Cervantes [facility] Note Date/Time February 06, 2025 10:2 6am [facility] Medical Records Department [address] [place] [address] Progress Note - Hospitalist 02/06/25905 MR#: [id number] Acct: [id number] Name: RICHARD ROY Rep #:[id number] : 1945 79 From: Hugo hollis MD PCP: Kuldip Cosby Status:ADM IN Location: [place] [address] Subjective Subjective No issues overnight, tolerated surgery [...] 74.2 H, Lymph % (Auto) 10.1 L, [place] % (Auto) 8.6, Eos % (Auto) 5.9 [...] Preliminary Meth. resistant Staph. 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 first assistant Gram positive organism 02/05/25 00:05 Nasal Secretion [...] IMPRESSION: Postsurgical change. No complication. Reading Location: [facility] Physical Exam Narrative General: Alert, Oriented x1-2, [...] DVT: Lovenox Charges/Coding Visit Charges Inpatient E&M: 88585 Subs Hosp L2 02/06/25 1026 <Electronically signed by Hugo Cervantes MD> Cosigner Signature (if applicable): CC: ~ Signed [facility] Work Phone: 1(606) 366-768407-25-2025 Consult note Author Kareem Pabon [facility] Note Date/Time February 05, 2025 2:23 pm [facility] Medical Records Department [address] [place] [address] Anesthesia Postop Eval I 02/05/25 1422 MR#: [id number] Acct: [id number] Name: RICHARD ROY Rep #:[id number] : 1945 79 From: Kareem REDMAN PCP: Kuldip Cosby HYDRAULIC MECHANICLisaC Status:ADM IN Y Race: C Location: [place] [address] Anesthesia: Postop Eval I Current Vital Signs [...] CRNA Cosigner Signature: Date CC: ~ Signed [facility] Work Phone: [phone]) [phone] Radiology Diagnostic study [facility]07-25-2025 Consult note Author Vega Hahn [facility] Note Date/Time February 05, 2025 1:16 pm [facility] Medical Records Department [address] [place] [address] Pre-Anesthesia Evaluation 02/05/25 1258 MR#: [id number] Acct: [id number] Name: RICHARD ROY Rep #:[id number] : 1945 79 From: Vega Hahn MD PCP: Kuldip Cosby Status:ADM IN Y Race: C Location: [place] [address] ASA Classification* ASA Classification ASA Classification: 4 [...] ray amputation Anesthesia History 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 Hx Hospitalization Yes: GI BLEED 05/30/23 11:36 [...] take am of surgery PONV 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: 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 Female HX of Motion Sickness HX of N/V After Surgery Non-Smoker Duration of Surgery greater than 60 minutes Number of Risk Factors PONV Score Height & Weight Height & Weight: Anesthesia: Height & Weight Height 6 ft 02/05/25 11:18 Weight: 118 kg 02/05/25 11:18 Body Mass Index (BMI) 35.2 02/05/25 11:18 Respiratory Assessment Respiratory Assessment - piercing 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: Respiratory Tract Infection Hx - piercing 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 Hx Respiratory Tract Infection Yes: pneumonia 02/05/25 02:17 STOP Sleep Apnea STOP Sleep Apnea - piercing 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: STOP Sleep Apnea - piercing 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 Hx Hypertension Yes 02/03/25 10:30 Hx Sleep [...] Tobacco Use History Tobacco Use History - piercing 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: Tobacco Use History - piercing 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 Tobacco Use Smoking Status Never smoker 02/03/25 01:28 Hx Tobacco Use No 02/03/25 01:28 Years Smoking Packs Smoked per Day Smoking Cessation Date was within the last 15 years Hx Smoking Cessation Date Hx Smoking Cessation No 02/03/25 01:28 Counseling Hematologic Medial History Hematologic Hx - piercing 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: Hematologic 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 - 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 Hx of Blood Transfusion Hx of Transfusion [...] confused, unrespo /Reproduction History /Reproductive History - piercing 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: /Reproductive Hx- piercing 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 Hx Now Gestational Age (in weeks): EDC: Hx Hx Para Hx Section SAB Active Medications Active Medications: Current Medications Generic Name Dose Route Start Last Admin Trade Name Freq PRN Reason Stop Dose Admin Acetaminophen 650 mg 02/03/25 01:20 02/05/25 00:05 Acetaminophen 325 Mg Tablet PO 650 mg Q4H PRN PRN Administration Fever, pain 1-10 Al Hydroxide/Mg Hydroxide 30 ml 02/03/25 01:20 [...] 02/05/25 12:13 Sodium Chloride IV Infused Q12H FERD Infusion Lactated Ringer's 1,000 mls @ 15 [...] Tablet PO Not Given 0700,1100,1600 [facility] Tamsulosin HCl 0.4 mg 02/03/25 22:00 02/04/25 22:14 Tamsulosin Hcl 0.4 Mg Capsule PO 0.4 mg QHS [facility] Administration Vancomycin Protocol 1 lab 02/06/25 08:30 Vancomycin Trough/Random Due 02/06/25 10:30 DAILY [facility] Medical History MRSA (methicillin resistant staph aureus) [...] 10 mg SC DAILY PRN constipation 05/30/23 Unknown History loperamide [...] thoracic aortic aneurysm repair Social History housing: senior living current occupational status: retired Smoking Status: Never smoker alcohol intake: never substance use type: does not use Review of Systems (Anesthesia) ROS Narrative System reviewed and no additional complaints, except as documented. 02/05/25 1316 <Electronically signed by Vega sales MD> Date _ Vega Hahn MD Cosigner Signature: Date CC: ~ Signed [facility] Work Phone: [phone]) 994-471107-25-2025 Procedure [facility] 02-05-2025 Progress note Author Hugo Cervantes [facility] Note Date/Time February 05, 2025 8:40 am [facility] Medical Records Department [address] [place] [address] Progress Note - Hospitalist 02/05/25 0838 MR#: [id number] Acct: [id number] Name: RICHARD ROY Rep #:[id number] : 1945 79 From: Hugo hollis MD PCP: Kuldip Cosby HYDRAULIC MECHANIC-C Status:ADM IN Location: [place] [address] Subjective Subjective No issues overnight. Hemoglobin and [...] 76.4 H, Lymph % (Auto) 9.4 L, [place] % (Auto) 8.0, Eos % (Auto) 5.2 [...] DVT: Lovenox Charges/Coding Visit Charges Inpatient E&M: 79547 Subs Hosp L2 02/05/25 0840 <Electronically signed by Hugo Cervantes MD> Cosigner Signature (if applicable): CC: ~ Signed [facility] Work Phone: [phone]) 562-844807-25-2025 Consult note Author Deangelo Quintero [facility] Note Date/Time February 04, 2025 10:0 7pm [facility] Medical Records Department [address] [place] [address] Pharmacokinetic/Renal -Consult 02/04/252206 MR#: [id number] Acct: [id number] Name: RICHARD ROY Rep #:[id number] : 1945 79 From: Deangelo Calvillo od PCP: Kuldip Cosby HYDRAULIC MECHANIC-C Status:ADM IN Y Location: [place] [address] Consult Antibiotic Management Pharmacy has been consulted [...] Signature (if applicable): Date CC: ~ Signed [facility] Work Phone: [phone] 465-359807-24-2025 Consult note Author Meghana Cole [facility] Note Date/Time February 04, 2025 7:36 pm [facility] Medical Records Department [address] [place] [address] Consultation - Surgical 02/04/25729 MR#: [id number] Acct: [id number] Name: RICHARD ROY Rep #:[id number] : 1945 79 From: Meghana LOZA PCP: Kuldip Cosby HYDRAULIC MECHANICJay Jay Status:ADM IN Location: [place] [id number]- 1 Assessment & Plan Assessment/Plan (1) Type [...] a 79 M who presented to the [facility] ER on 02/02/25 with new cough, [...] Heis on Eliquis for Afib. [facility] Medical History (Updated 02/04/25 @ 19:03 by [...] 10 mg SC DAILY PRN constipation 05/30/23 Unknown History loperamide [...] thoracic aortic aneurysm repair Social History housing: senior living current occupational [...] 80.0 H, Lymph % (Auto) 5.3 L, [place] % (Auto) 9.4, Eos % (Auto) 4.1, [...] Loaiza RVT Charges/Coding Visit Charges Inpatient E&M: 39903 Init Hosp L2 02/04/25 4703 <Electronically signed by Meghana LOZA> Cosigner Signature (if applicable): 02/04/251935 <Electronically signed by Aneesh Ac MD> CC: Kuldip Cosby~ Signed [facility] Work Phone: [phone]) 411-949007-24-2025 Progress note Author Kee Mejia [facility] Note Date/Time February 04, 2025 3:41 pm [facility] Medical Records Department [address] [place] [address] Progress Note 02/04/25 1537 MR#: [id number] Acct: [id number] Name: RICHARD ROY Rep #:[id number] : 1945 79 From: Kee Mejia DPM PCP: Kuldip Cosby Status:ADM IN Location: [place] [id number]- 1 Subjective Subjective Patient was seen today [...] 80.0 H, Lymph % (Auto) 5.3 L, [place] % (Auto) 9.4, Eos % (Auto) 4.1, [...] Cosigner Signature (if applicable): CC: ~ Signed [facility] Work Phone: [phone]) 764-782307-24-2025 Consult note Author Crys Carvajal [facility] Note Date/Time February 04, 2025 10:5 3am [facility] Medical Records Department [address] [place] [address] Pharmacokinetic/Renal -Consult 02/04/25 1052 MR#: [id number] Acct: [id number] Name: RICHARD ROY Rep #:[id number] : 1945 79 From: Crys Carvajal PCP: Kuldip Cosby HYDRAULIC MECHANICJay Jay Status:ADM IN Y Location: [place] [address] Consult Antibiotic Management Pharmacy has been consulted [...] monitor and adjust dosing as required. 02/04/25 0883 <Electronically signed by Crys Carvajal > Date _ Crys Hsuflacaer Signature (if applicable): Date CC: ~ Signed [facility] Work Phone: [phone]) 140-673807-24-2025 Progress note Author Hugo Cervantes [facility] Note Date/Time February 04, 2025 9:05 am [facility] Medical Records Department [address] [place], [place] [address] [address] Progress Note - Hospitalist 02/04/25901 MR#: [id number] Acct: [id number] Name: RICHARD ROY Rep #:[id number] : 1945 79 From: Hugo hollis MD PCP: Kuldip Cosby HYDRAULIC MECHANIC-C Status:ADM IN Location: [place] [address] Subjective Subjective No issues overnight, awaiting MRI [...] 80.0 H, Lymph % (Auto) 5.3 L, [place] % (Auto) 9.4, Eos % (Auto) 4.1, [...] DVT: Lovenox Charges/Coding Visit Charges Inpatient E&M: 54383 Subs Hosp L2 02/04/25 0905 <Electronically signed by Hugo Cervantes MD> Cosigner Signature (if applicable): CC: ~ Signed [facility] Work Phone: [phone]) 478-136707-24-2025 Consult note Author Kee Mejia [facility] Note Date/Time February 03, 2025 11:4 9pm [facility] Medical Records Department [address] [place] [address] Consultation 02/03/251814 MR#: [id number] Acct: [id number] Name: RICHARD ROY Rep #:[id number] : 1945 79 From: Kee Mejia DPM PCP: Kuldip Cosby HYDRAULIC MECHANIC-C Status:ADM IN Location: [place] [id number]- 1 Assessment & Plan Assessment/Plan (1) Cellulitis [...] to his pacemaker - I discussed with spray technician and they are going to check [...] disease and has a pacemaker. [facility] Medical History History of stress test History [...] 10 mg SC DAILY PRN constipation 05/30/23 Unknown History loperamide [...] thoracic aortic aneurysm repair Social History housing: senior living current occupational [...] 86.2 H, Lymph % (Auto) 3.6 L, [place] % (Auto) 8.7, Eos % (Auto) 0.6, [...] Clarity Clear, Urine pH 5.0, Ur Specific [place] 1.015, Urine Protein 30 H, Urine Glucose [...] 83.8 H, Lymph % (Auto) 4.0 L, [place] % (Auto) 8.4, Eos % (Auto) 2.9, [...] 3. Chronic paranasal sinus disease. Reading Location: [facility] Chest X-Ray 02/02/25 20:20 IMPRESSION: Pulmonary findings as above. Reading Location: [facility] Foot X-Ray 02/02/25 20:20 IMPRESSION: No acute osseous abnormality. Reading Location: [facility] Extremity Arterial Study 02/03/25 10:01 Interpretation Summary Right JOSTIN 0.88, moderate arterial insufficiency. Doppler/PVR waveforms of the right ankle normal at rest. Left JOSTIN 1.05, normal though may be artificially elevated. Doppler/PVR waveformsof the left leg mildly diminished infrapopliteal. TBI diminished. Ordering Physician: Kee Mejia Referring Physician: Kuldip Cosby Performed By: Giancarlo Loaiza RVT 02/03/252345 <Electronically signed by Kee Mejia DPM> [...] (if applicable): cc: Kuldip Cosby ~* Signed [facility] Work Phone: [phone]) [phone] [facility]07-23-2025 Progress note Author Hugo Cervantes [facility] Note Date/Time February 03, 2025 11:5 6am [facility] Medical Records Department [address] [place] [address] Progress Note - Hospitalist 02/03/25 0956 MR#: [id number] Acct: [id number] Name: RICHARD ROY Rep #:[id number] : 1945 79 From: Hugo hollis MD PCP: Kuldip Cosby Status:ADM IN Location: [place] [id number]- 1 Subjective Subjective No issues overnight, maintaining [...] 86.2 H, Lymph % (Auto) 3.6 L, [place] % (Auto) 8.7, Eos % (Auto) 0.6, [...] Clarity Clear, Urine pH 5.0, Ur Specific [place] 1.015, Urine Protein 30 H, Urine Glucose [...] 83.8 H, Lymph % (Auto) 4.0 L, [place] % (Auto) 8.4, Eos % (Auto) 2.9, [...] 3. Chronic paranasal sinus disease. Reading Location: [facility] Chest X-Ray 02/02/25 20:20 IMPRESSION: Pulmonary findings as above. Reading Location: [facility] Foot X-Ray 02/02/25 20:20 IMPRESSION: No acute osseous abnormality. Reading Location: [facility] Physical Exam Narrative General: Alert but [...] DVT: Lovenox Charges/Coding Visit Charges Inpatient E&M: 81847 Subs Hosp L2 02/03/25 1156 <Electronically signed by Hugo Cervantes MD> Cosigner Signature (if applicable): CC: ~ Signed [facility] Work Phone: [phone]) [phone] Consult note Author Aneesh Suazo [facility] Note Date/Time February 03, 2025 2:11 am [facility] Medical Records Department [address] [facility] [place] [address] Pharmacokinetic/Renal -Consult 02/03/25 0208 MR#: [id number] Acct: [id number] Name: RICHARD ROY Rep #:[id number] : 1945 79 From: Aneesh Suazo PCP: Kuldip Cosby HYDRAULIC MECHANICJay Jay Status:ADM IN Location: [place] [address] Consult Antibiotic Management Pharmacy has been consulted [...] Aneesh estrada> Date _ Aneesh Suazo 02/03/25 021 <Electronically signed by Karen gallo MD> Cosigner Signature (if applicable): Date Karen Aly MD CC: ~ Signed [facility] Work Phone: [phone] 615-788107-23-2025 History and physical note Author Karen Aly [facility] Note Date/Time February 03, 2025 12:2 6am [facility] Medical Records Department [address] [place] [address] H&P Exam - Hospitalist 02/02/25 2241 MR#: [id number] Acct: [id number] Name: RICHARD ROY Rep #:[id number] : 1945 79 From: Karen Aly MD PCP: Kuldip Cosby HYDRAULIC MECHANICLisaC Status:ADM IN Location: [facility] [id number] HPI - General General Date of Admission: [...] history who presents to the [facility] ED on 02/02/2025 with history of recent [...] 4 g IV x 1. [facility] Medical History History of stress test History [...] 10 mg SC DAILY PRN constipation 05/30/23 Unknown History loperamide [...] thoracic aortic aneurysm repair Social History housing: senior living current occupational [...] 86.2 H, Lymph % (Auto) 3.6 L, [place] % (Auto) 8.7, Eos % (Auto) 0.6, [...] Clarity Clear, Urine pH 5.0, Ur Specific [place] 1.015, Urine Protein 30 H, Urine Glucose [...] 3. Chronic paranasal sinus disease. Reading Location: [facility] Chest X-Ray 02/02/25 20:20 IMPRESSION: Pulmonary findings as above. Reading Location: [facility] Foot X-Ray 02/02/25 20:20 IMPRESSION: No acute osseous abnormality. Reading Location: [facility] Assessment & Plan Assessment/Plan (1) Pneumonia: [...] history who presents to the [facility] ED on 02/02/2025 with history of recent [...] 16 minutes. Charges/Coding Visit Charges Inpatient E&M: 59119 Init Hosp L3 Procedures Hospitalists Procedures: 62781 Advncd Care Plan 30 Min 02/03/25 0026 <Electronically signed by Karen Aly MD> Cosigner Signature (if applicable): CC: Dr. Karen Aly MD; Kuldip Cosby~ Signed [facility] Work Phone: 1(282) 320-253607-23-2025 Evaluation note* Diagnosis Onset Date Resolution Status [...] foot ulcer acute February 02, 2025 11:12pm [facility] Work Phone: 1([phone]) [phone] Evaluation note* Diagnosis Onset Date Resolution Status [...] h foot ulcer acute March 03 3:23pm [facility] Work Phone: 1(953) 874-755007-23-2025 Evaluation note* Diagnosis Onset Date Resolution Status [...] 9:47am Sick sinus syndrome chronic 2024 9:47am [facility] Work Phone: 1(698) 347-456407-23-2025 Evaluation note* Diagnosis Onset Date Resolution Status [...] block, Mobi tz type II chronic March 22 2 025 12:14pm Sick sinus syndrome chronic 2024 12:14pm [employer] [facility] Work Phone: 1([phone]) 177-174707-23-2025 Discharge summary Author Nicholas Galarza [facility] Note Date/Time February 02, 2025 10:[facility] [address] [place] [address] Emergency Department Summary 02/02/25 MR#: [id number] Acct: [id number] Name: RICHARD ROY Rep #:[id number] : 1945 79 From: Nicholas Lemons PCP: Kuldip Cosby HYDRAULIC MECHANIC-C Status:REG ER Location: ED HPI History of [...] 10 mg SC DAILY PRN constipation 05/30/23 Unknown History loperamide [...] thoracic aortic aneurysm repair Social History housing: senior living current occupational [...] Air Room Air Oxygen Flow Rate (L/min) [facility] MDM MDM Narrative Medical decision making narrative: HISTORY OF PRESENT ILLNESS: Chief complaint: Cough, lethargy, altered mental status and fever 79-year-old male history of type 2 diabetes, hyperlipidemia, PE, A-fib on Eliquis, secondary heart block status post pacemaker presents with recent cough,lethargy and fever. Also noted altered mental status. History is provided by and son. notes patient was behaving normally yesterday at his [facility]. No she was called because he has [...] recent hospitalizations, reviewed medications. Reviewed x-ray from senior living which reported no obvious focal infiltrate Factors affecting care: n as per [facility] Social determinants of health: senior living resident History obtained from others: EMS Consults: [...] Dispo: Discharge This note was generated with [employer] dictation software. It may contain incorrectwords, spelling, [...] 86.2 H Lymph % (Auto) 3.6 L Marinette % (Auto) 8.7 Eos % (Auto) 0.6 [...] Clarity Clear Urine pH 5.0 Ur Specific [place] 1.015 Urine Protein 30 H Urine Glucose [...] 3. Chronic paranasal sinus disease. Reading Location: [facility] Chest X-Ray 02/02/25 20:20 IMPRESSION: Pulmonary findings as above. Reading Location: [facility] Foot X-Ray 02/02/25 20:20 IMPRESSION: No acute osseous abnormality. Reading Location: [facility] Discharge Plan Triage Chief Complaint: Fever [...] mg PO QHS Patient Comments: PRN PER FDC MAR. memantine 10 mg Tablet 10 mg PO BID Qty: 0 0RF acetaminophen 325 mg tablet 650 mg PO .q12hrs Patient Comments: PRN PER FDC MAR bisacodyl 10 mg suppository 10 mg SC DAILY PRN (Reason: constipation) loperamide [Anti-Diarrheal (loperamide)] [...] Luis Caldera MD [Non-Staff] - Print Language: Austrian What to do if you have Problems For any increased pain, shortness of breath, bleeding, nausea or vomiting, chestpain, or any unexpected problems, contact your Primary Care Provider. Call [facility] ([phone]) or report to the closest Emergency Room. Call 911 if necessary. 02/02/252244 <Electronically signed by Nicholas Galarza DO> Cosigner Signature (if applicable): CC: Kuldip Cosby ~ Signed [facility] Work Phone: 1([phone]) [phone] Discharge summary Author Nicholas [facility] Note Date/Time February 02, 2025 10:4 5pm [facility] Medical Records Department [address] [place] [address] Emergency Department Summary 02/02/25 MR#: [id number] Acct: [id number] Name: RICHARD ROY Rep #:[id number] : [...] 10 mg SC DAILY PRN constipation 05/30/23 Unknown History loperamide [...] thoracic aortic aneurysm repair Social History housing: senior living current occupational [...] MEDICAL DECISION MAKING: Chief Complaint: please see [facility] External records reviewed: No recent hospitalizations, reviewed medications. Reviewed x-ray from senior living which reported no obvious focal infiltrate Factors affecting care: n as per [facility] Social determinants of health: senior living resident History obtained from others: EMS Consults: Internal medicine [facility] Narrative: The patient was initially tachypneic with [...] Dispo: Discharge This note was generated with [employer] dictation software. It may contain incorrectwords, spelling, [...] 86.2 H Lymph % (Auto) 3.6 L Marinette % (Auto) 8.7 Eos % (Auto) 0.6 [...] Clarity Clear Urine pH 5.0 Ur Specific [place] 1.015 Urine Protein 30 H Urine Glucose [...] 3. Chronic paranasal sinus disease. Reading Location: [facility] Chest X-Ray 02/02/25 20:20 IMPRESSION: Pulmonary findings as above. Reading Location: [facility] Foot X-Ray 02/02/25 20:20 IMPRESSION: No acute osseous abnormality. Reading Location: [facility] Discharge Plan Triage Chief Complaint: Fever [...] mg PO QHS Patient Comments: PRN PER FDC MAR. memantine 10 mg Tablet 10 mg PO BID Qty: 0 0RF acetaminophen 325 mg tablet 650 mg PO .q12hrs Patient Comments: PRN PER FDC MAR bisacodyl 10 mg suppository 10 mg SC DAILY PRN (Reason: constipation) loperamide [Anti-Diarrheal (loperamide)] [...] Luis Caldera MD [Non-Staff] - Print Language: Austrian What to do if you have Problems For any increased pain, shortness of breath, bleeding, nausea or vomiting, chestpain, or any unexpected problems, contact your Primary Care Provider. Call [facility] ([phone]) or report to the closest Emergency Room. Call 911 if necessary. 02/02/252244 <Electronically signed by Nicholas Galarza DO> Cosigner Signature (if applicable): CC: Kuldip Cosby ~ Signed [facility] Work Phone: [phone]) 929-260107-23-2025 History and physical note Author Karen Aly [facility] Note Date/Time February 03, 2025 12:2 6am [facility] Medical Records Department [address] [place] [address] H&P Exam - Hospitalist 02/02/252240 MR#: [id number] Acct: [id number] Name: RICHARD ROY Rep #:[id number] : 1945 79 From: Karen Aly MD PCP: Kuldip Cosby HYDRAULIC MECHANICJay Jay Status:ADM IN Location: [facility] ZM681-2 HPI - General General Date of Admission: [...] history who presents to the [facility] ED on 02/02/2025 with history of recent [...] 10 mg SC DAILY PRN constipation 05/30/23 Unknown History loperamide [...] thoracic aortic aneurysm repair Social History housing: senior living current occupational [...] 86.2 H, Lymph % (Auto) 3.6 L, Marinette % (Auto) 8.7, Eos % (Auto) 0.6, [...] Clarity Clear, Urine pH 5.0, Ur Specific [place] 1.015, Urine Protein 30 H, Urine Glucose [...] 3. Chronic paranasal sinus disease. Reading Location: [facility] Chest X-Ray 02/02/25 20:20 IMPRESSION: Pulmonary findings as above. Reading Location: [facility] Foot X-Ray 02/02/25 20:20 IMPRESSION: No acute osseous abnormality. Reading Location: [facility] Assessment & Plan Assessment/Plan (1) Pneumonia: [...] history who presents to the [facility] ED on 02/02/2025 with history of recent [...] 16 minutes. Charges/Coding Visit Charges Inpatient E&M: 25709 Init Hosp L3 Procedures Hospitalists Procedures: 54792 Advncd Care Plan 30 Min 02/03/25 0026 <Electronically signed by Karen Aly MD> Cosigner Signature (if applicable): CC: Dr. Karen Aly MD; Kuldip Cosby~ Signed [facility] Work Phone: 1(765) 140-266307-23-2025 History and physical note [facility] Medical Records Department [address] [place] [address] H&P Exam - Hospitalist 02/02/25 2241 MR#: [id number] Acct: [id number] Name: RICHARD ROY Rep #:[id number] : 1945 79 From: Karen Aly MD PCP: Kuldip Cosby Status:ADM [facility] - General General Date of Admission: [...] history who presents to the [facility] ED on 02/02/2025 with history of recent [...] to magnesium 4 [facility] History of stress test [...] 10 mg SC DAILY PRN constipation 05/30/23 Unknown History loperamide [...] thoracic aortic aneurysm repair Social History housing: senior living current occupational [...] 86.2 H, Lymph % (Auto) 3.6 L, Marinette % (Auto) 8.7, Eos % (Auto) 0.6, [...] Clarity Clear, Urine pH 5.0, Ur Specific [place] 1.015, Urine Protein 30 H, Urine Glucose [...] 3. Chronic paranasal sinus disease. Reading Location: [facility] Chest X-Ray 02/02/25 20:20 IMPRESSION: Pulmonary findings as above. Reading Location: [facility] Foot X-Ray 02/02/25 20:20 IMPRESSION: No acute osseous abnormality. Reading Location: [facility] Assessment & Plan Assessment/Plan (1) Pneumonia: [...] history who presents to the [facility] ED on 02/02/2025 with history of recent [...] 16 minutes. Charges/Coding Visit Charges Inpatient E&M: 85361 Init Hosp L3 Procedures Hospitalists Procedures: 04075 Advncd Care Plan 30 Min 02/03/25 0026 Cosigner Signature (if applicable): CC: Dr. Karen Aly MD; Kuldip Cosby~ Signed [facility]07-22-2025 Discharge summary [facility] Medical Records Department [address] [place] [address] Emergency Department Summary 02/02/25 MR#: [id number] Acct: [id number] Name: RICHARD ROY Rep #:[id number] : [...] 10 mg SC DAILY PRN constipation 05/30/23 Unknown History loperamide [...] thoracic aortic aneurysm repair Social History housing: senior living current occupational [...] [facility] No she was called because he has [...] recent hospitalizations, reviewed medications. Reviewed x-ray from senior living which reported no obvious focal infiltrate Factors affecting care: n as per HPI Social determinants of health: senior living resident History obtained from others: EMS Consults: Internal medicine [facility] Narrative: The patient was initially tachypneic with [...] Dispo: Discharge This note was generated with [employer] dictation software. It may contain incorrectwords, spelling, [...] 86.2 H Lymph % (Auto) 3.6 L [place] % (Auto) 8.7 Eos % (Auto) 0.6 [...] Clarity Clear Urine pH 5.0 Ur Specific [place] 1.015 Urine Protein 30 H Urine Glucose [...] 3. Chronic paranasal sinus disease. Reading Location: [facility] Chest X-Ray 02/02/25 20:20 IMPRESSION: Pulmonary findings as above. Reading Location: [facility] Foot X-Ray 02/02/25 20:20 IMPRESSION: No acute osseous abnormality. Reading Location: [facility] Discharge Plan Triage Chief Complaint: Fever [...] mg PO QHS Patient Comments: PRN PER FDC MAR. memantine 10 mg Tablet 10 mg PO BID Qty: 0 0RF acetaminophen 325 mg tablet 650 mg PO .q12hrs Patient Comments: PRN PER FDC MAR bisacodyl 10 mg suppository 10 mg SC DAILY PRN (Reason: constipation) loperamide [Anti-Diarrheal (loperamide)] [...] Luis Caldera MD [Non-Staff] - Print Language: Austrian What to do if you have Problems For any increased pain, shortness of breath, bleeding, nausea or vomiting, chestpain, or any unexpected problems, contact your Primary Care Provider. Call [facility] ([phone]) or report tothe closest Emergency Room. Call 911 if necessary. 02/02/250 Cosigner Signature (if applicable): CC: Kuldip Cosby ~ Signed [facility]07-22-2025 Radiology Diagnostic study note [facility] Imaging Services [address] [place], [place] [address] Foot 2 Views MR#: [id number] Acct: [id number] Name: RICHARD ROY Rep #: [id number] : 1945 M 79 From: Pascual Patino MD PCP: Kuldip Cosby Status: REG ER Study:Foot 2 Views Date of Exam: 5 Exam# [id number] Ordering Dr: Ronak Galarza DO PROCEDURE: FOOT 2 VIEWS 02/02/2025 REASON FOR EXAM: REDNESS, LATERAL 5TH DIGIT ULCER TECHNIQUE: FOOT 2 VIEWS COMPARISON: None. FINDINGS: No evidence of acute fracture or dislocation. The joint spaces are maintained. Heavy atherosclerosis. RAD/Foot 2 Views IMPRESSION: No acute osseous abnormality. Reading Location: [facility] CC: Dr. Nicholas Galarza DO; Kuldip Cosby ~ Replenisher: Signed [facility]07-22-2025 Radiology Diagnostic study note [facility] Imaging Services [address] [place] [address] Chest 1 View (Portable) MR#: [id number] Acct: [id number] Name: RICHARD ROY Rep #: [id number] : 1945 M 79 From: Pascual Patino MD PCP: Kuldip Cosby Status: REG ER Study:Chest 1 View (Portable) Date of Exam: 02/02/25 Exam# [id number] Ordering Dr: Ronak Galarza DO PROCEDURE: CHEST 1 VIEW (PORTABLE) 02/02/2025 REASON FOR EXAM: ALTERED MENTAL STATUS TECHNIQUE: Frontal view of the chest. COMPARISON: 02/10/2023. FINDINGS: The heart is enlarged. Prior sternotomy. Left chest pacemaker. Left midlung consolidative opacity which may represent pneumonia (limited assessment due to rotation). RAD/Chest 1 View (Portable) IMPRESSION: Pulmonary findings as above. Reading Location: [facility] CC: Dr. Nicholas Galarza DO; Kuldip Cosby ~ Replenisher: Signed [facility]07-22-2025 Radiology Diagnostic study note [facility] Imaging Services [address] [place], [place] [address] Brain/Head without Contrast MR#: [id number] Acct: [id number] Name: RICHARD ROY Rep #: [id number] : 1945 M 79 From: Philip Johnson MD PCP: Kuldip Cosby Status: REG ER Study:Brain/Head without Contrast Date of Exa m: 02/02/25 Exam# [id number] Ordering Dr: Ronak Galarza DO PROCEDURE: BRAIN/HEAD [...] 3. Chronic paranasal sinus disease. Reading Location: [facility] CC: Dr. Nicholas Galarza, DO; Kuldip Cosby ~ Replenisher: Signed [facility]03-31-2025 Evaluation note* Diagnosis Onset Date Resolution Status Admit Date Presence of cardiac pacemaker acute October 12, 2024 1:09pm Atrial fibrillation chronic October 12, 2024 1:09pm Diabetes chronic October 12 1:09pm HLD (hyperlipidemia) chronic [facility] 2024 1:09pm HTN (hypertension) chronic October 12, 2024 1:09pm Sick sinus syndrome chronic October 12, 2024 1:09pm [facility] Work Phone: 1(279) 712-577003-31-2025 Evaluation note* Diagnosis Onset Date Resolution Status Admit Date Presence of cardiac pacemaker acute October 12, 2024 1:09pm Atrial fibrillation chronic October 12, 2024 1:09pm Diabetes chronic October 12 1:09pm HLD (hyperlipidemia) chronic [facility] 2024 1:09pm HTN (hypertension) chronic October 12, 2024 1:09pm Sick sinus syndrome chronic October 12, 2024 1:09pm Pneumonia acute February 02 11:12pm [facility] Work Phone: 1(189) 557-999311-20-2023 Procedure [facility] 02-13-2023 Consult note Author Haile Bautista [facility] February 13, 2023 2:50pm Note Date/Time February 13, 2023 2:5 0pm [facility] Medical Records Department [address] [place] [address] Counseling Note - Pharmacy 02/13/23 1449 MR#: [id number] Acct: [id number] Name: RICHARD ROY Rep #:[id number] : 1945 77 From: Haile Bautista PCP: Dr. Luis Caldera MD Status :ADM IN Y Location: [facility] UC286-4 Pharmacy [place] Med Reconciliation Pharmacy Service has performed discharge [...] Signature (if applicable): Date CC: ~ Signed [facility] Work Phone: 1(949) 454-378608-02-2023 Discharge summary Author [facility] February 13, 2023 2:24pm Note Date/Time February 13, 2023 2:1 5pm [facility] Medical Records Department [address] [place] [address] Transfer to [facility] MR#: [id number] Acct: [id number] Name: RICHARD ROY Rep #:[id number] : 1945 77 From: Gabriel Giraldo DO PCP: Dr. Luis Caldera MD Status :ADM IN Certification of patient admission REQUIRED AT TIME OF ADMISSION. I CERTIFY THAT POST-HOSPITAL ECF SERVICES ARE REQUIRED TO BE GIVEN ON AN IN-PATIENT BASIS BECAUSE OF THE ABOVE NAMED PATIENT'S NEED FOR FDC CARE ON A CONTINUING BASIS FOR THE CONDITION(S) FOR WHICH HE/SHE WAS RECEIVING IN-PATIENT HOSPITAL SERVICES PRIOR TO HIS/HER TRANSFER TO THE [facility]. 02/13/23 1424<Electronically signed by Gabriel Giraldo [...] mg PO QHS Patient Comments: PRN PER FDC MAR. acetaminophen 325 mg Tablet 650 mg PO TID Patient Comments: PRN PER FDC MAR cephalexin 500 mg capsule 500 mg [...] in before D/C Order can be placed): Detention Facility 02/13/23 1424 <Electronically signed by Gabriel Giraldo DO> Cosigner Signature (if applicable): CC: Dr. Luis Caldera MD; Dr. Smith Leija MD ~ [facility] Work Phone: 1(793) 935-516308-01-2023 Progress note Author Gabriel [facility] February 12, 2023 4:48pm Note Date/Time February 12, 2023 4:4 8pm [facility] Medical Records Department [address] [place] [address] Progress Note - Hospitalist 02/12/23 1639 MR#: [id number] Acct: [id number] Name: RICHARD ROY Rep #:[id number] : 1945 77 From: Gabriel Giraldo DO PCP: Dr. Luis Caldera MD Status :ADM IN Location: [place] [address] Reason for Visit Reason for Visit: Diagnoses [...] 76.5 H, Lymph % (Auto) 8.1 L, Marinette % (Auto) 12.5 H, Eos % (Auto) [...] 35 minutes Charges/Coding Visit Charges Inpatient E&M: 59002 Subs Hosp L2 02/12/23 1648 <Electronically signed by Gabriel Giraldo DO> Cosigner Signature (if applicable): CC: ~ Signed [facility] Work Phone: 1(752) 189-443408-01-2023 Consult note Author Smith Leija [facility] February 12, 2023 2:16pm Note Date/Time February 12, 2023 2:1 6pm [facility] Medical Records Department [address] [place] [address] Consultation - Infectious Dx 02/12/23 1412 MR#: [id number] Acct: [id number] Name: RICHARD ROY Rep #:[id number] : 1945 77 From: Smith mcdowell MD PCP: Dr. Luis Caldera MD Status :ADM IN Location: [facility] WV877-4 Assessment & Plan Assessment/Plan (1) Bacteremia: PLAN: [...] keflex in ED 02/10, sent back to [facility]. Had low grade fever, returned here with (+) ucx and (+)bcx with GNR. Admitted on ceftriaxone, feeling ok today. No complaints, deniesfever, chest pain, abd pain, dysuria, n/v/d. Full ROS performed and neg except as noted above. [facility] Medical History AAA (abdominal aortic [...] 76.5 H, Lymph % (Auto) 8.1 L, [place] % (Auto) 12.5 H, Eos % (Auto) 0.8, Baso % (Auto) 0.1, Absolute Neuts(auto) 5.7, Absolute Lymphs (auto) 0.61 L, Nucleated RBC % 0, PT 19.3 H, INR 1.6 Rhythm Strip Rhythm Strip: paced Rate: 95 Ectopy: None 02/12/23 1416 <Electronically signed by Smith Leija MD> Cosigner Signature (if applicable): CC: Dr. Luis Caldera MD; Dr. Smith Leija MD~ Signed [facility] Work Phone: 1(554) 291-973608-01-2023 Discharge summary Author Dandy Sauer [facility] February 12, 2023 2:03am Note Date/Time February 11, 2023 5:05 pm [facility] Medical Records Department [address] [place] [address] Emergency Department Summary 02/11/23 MR#: [id number] Acct: [id number] Name: RICHARD ROY Rep #:[id number] : 1945 77 From: Dandy Sauer MD PCP: Dr. Luis Caldera MD Status :ADM IN Location: [place] [id number] HPI History of Present Illness Chief Complaint: [...] mostly the lethargy is the issue acutely. PFSH PFSH Medical History (Updated 02/11/23 @ 19:31 by [...] infection), Bacteremia Disposition Disposition: [facility] Care [facility] Discharge Date/Time: 02/11/23 19:06 What to do if you have Problems For any increased pain, shortness of breath, bleeding, nausea or vomiting, chestpain, or any unexpected problems, contact your Primary Care Provider. Call [facility] ([phone]) or report to the closest Emergency Room. Call 911 if necessary. 02/12/23202 <Electronically signed by Dandy Sauer MD> Cosigner Signature (if applicable): CC: Dr. Luis Caldera MD ~ Signed [facility] Work Phone: 1(899) 510-469107-31-2023 History and physical note Author Jesus Burnham [facility] Cinthia 31st, 2023 7:38pm Note Date/Time February 11, 2023 7:39 pm [facility] Medical Records Department [address] [place] [address] History & Physical Exam 02/11/231928 MR#: [id number] Acct: [id number] Name: RICHARD ROY Rep #:[id number] : 1945 77 From: Jesus Burnham MD PCP: Dr. Luis Caldera MD Status :ADM IN Location: [facility] SH080-6 HPI - General General Date of Admission: [...] the son is the [employer] for healthcare and has orders signed for DNR CCA with no intubation. He will be admitted to the general medical floor placed on Rocephin, consult for infectiousdisease due to new implanted pacemaker. [facility] Medical History Amputation of right [...] on Coumadin Charges/Coding Visit Charges Inpatient E&M: 71176 Init Hosp L2 02/11/231937 <Electronically signed by Jesus Burnham MD> Cosigner Signature (if applicable): CC: Dr. Luis Caldera MD; Dr. Jesus Burnham MD~ Signed [facility] Work Phone: 1(673) [phone] Miscellaneous Notes* Telephone Encounter - Tania Heller LPN - 01/28/2023 2:22 PM EDT Miya with [facility] calls to report pt was admitted to their facility over the weekend. Miya is requesting immunization record be faxed to: [phone]. Immunization record faxed as requested. [facility]eller LPN [facility] Discharge summary Author Ryan Tinoco [facility] January 26, 2023 12:56pm Note Date/Time January 26, 2023 12:4 6pm [facility] Medical Records Department [address] [place], [place] [address] [address] Discharge Summary 01/26/23 1157 MR#: [id number] Acct: [id number] Name: RICHARD ROY Rep #:[id number] : 1945 77 From: Ryan Delgado PCP: Dr. Luis Caldera MD Status :ADM IN Location: [place] [address] Providers Date of Admission: 01/21/23 Date of [...] is a 77-year-old gentleman being admitted from [facility] for multiple episodes of syncope and [...] the . His medical care is under [facility]. 01/22: Hemoglobin dropped to 8.9. Patient had [...] there was 2 dropped heartbeat in EKG. color television console monitor shows heart rate slowed down to 48 to 60/min. EKG in the morning about 6 AM today shows sinus rhythm with second- degree Mobitz type II block, RBBB, LAFB bifascicular block. Patient has history of bifascicular block. I talked to the patient's and informed her about the update. Patient has history of ascending aortic aneurysmand had that repaired along with aortic valve in [facility]. His clean energy policy analyst is Dr. Huston in [facility]. I think this is most probably due to start of the octreotide drip as patient was in sinus normal rhythm at time ofadmission. Octreotide discontinued. Pipe Line Repairer consulted. 2D echo ordered. 01/23: Echo states EF 55 to 60%, normal LV systolic function. Trivial MR. Mild diffuse aortic valve calcification. Normal left atrium. Plan: Pipe Line Repairer will talk to Dr. Chandra regarding assessment for pacemaker 01/24: Patient has hypernatremia and hyperchloremia. IV fluid D5W started. Patient is still has AV block, P waves but rhythm is irregular. Twelve-lead EKGordered. Discussed with the clean energy policy analyst. Dr. Ling will talk to Dr. Chandra. 01/25: For now plan is to monitor. No plan for pacemaker as per the clean energy policy analyst. color television console monitor shows irregular heartbeat , Mobitz type II. [...] or advanced directive. His is power of patent attorney for health. After discussion of benefits/risks [...] Heart rate in 50s.. Discussed with the clean energy policy analyst. No chest pain or tightness. Physical exam [...] 78.4 H, Lymph % (Auto) 8.1 L, Marinette % (Auto) 9.6, Eos % (Auto) 1.6, [...] Qty: 0 0RF Patient Comments: PRN PER FDC MAR melatonin 3 mg Tablet 3 mg PO QHS PRN PRN (Reason: Insomnia) Qty: 1 0RF Patient Comments: PRN PER FDC MAR. duloxetine [Cymbalta] 60 mg capsule,delayed release(DR/EC) [...] in before D/C Order can be placed): Detention Facility Charges/Coding Visit Charges Inpatient E&M: 85392 Disch Hosp >30min 01/26/23 1256 <Electronically signed by Ryan Tinoco MD> Cosigner Signature (if applicable): CC: Dr. Luis Caldera MD; Dr. Ryan Tinoco MD~ Signed [facility] Work Phone: 1(203) 147-636407-15-2023 Discharge summary Author Ryan Tinoco [facility] January 26, 2023 11:57am Note Date/Time January 26, 2023 7:59 am [facility] Medical Records Department [address] [place] [address] Transfer to [facility] MR#: [id number] Acct: [id number] Name: KIRILLRICHARD HERNANDEZ Rep #:[id number] : 1945 77 From: Ryan Delgado PCP: Dr. Luis Caldera MD Status :ADM IN Certification of patient admission REQUIRED AT TIME OF ADMISSION. I CERTIFY THAT POST-HOSPITAL ECF SERVICES ARE REQUIRED TO BE GIVEN ON AN IN-PATIENT BASIS BECAUSE OF THE ABOVE NAMED PATIENT'S NEED FOR FDC CARE ON A CONTINUING BASIS FOR THE [...] is a 77-year-old gentleman being admitted from [facility] for multiple episodes of syncope and [...] the . His medical care is under [facility]. 01/22: Hemoglobin dropped to 8.9. Patient had [...] there was 2 dropped heartbeat in EKG. color television console monitor shows heart rate slowed down to 48 to 60/min. EKG in the morning about 6 AM today shows sinus rhythm with second- degree Mobitz type II block, RBBB, LAFB bifascicular block. Patient has history of bifascicular block. I talked to the patient's and informed her about the update. Patient has history of ascending aortic aneurysmand had that repaired along with aortic valve in [facility]. His clean energy policy analyst is Dr. Huston in [facility]. I think this is most probably due to start of the octreotide drip as patient was in sinus normal rhythm at time ofadmission. Octreotide discontinued. Pipe Line Repairer consulted. 2D echo ordered. 01/23: Echo states EF 55 to 60%, normal LV systolic function. Trivial MR. Mild diffuse aortic valve calcification. Normal left atrium. Plan: Pipe Line Repairer will talk to Dr. Chandra regarding assessment for pacemaker 01/24: Patient has hypernatremia and hyperchloremia. IV fluid D5W started. Patient is still has AV block, P waves but rhythm is irregular. Twelve-lead EKGordered. Discussed with the clean energy policy analyst. Dr. Ling will talk to Dr. Chandra. 01/25: For now plan is to monitor. No plan for pacemaker as per the clean energy policy analyst. color television console monitor shows irregular heartbeat , Mobitz type II. [...] or advanced directive. His is power of patent attorney for health. After discussion of benefits/risks [...] Qty: 0 0RF Patient Comments: PRN PER FDC MAR melatonin 3 mg Tablet 3 mg PO QHS PRN PRN (Reason: Insomnia) Qty: 1 0RF Patient Comments: PRN PER FDC MAR. donepezil 10 mg tablet 10 mg PO QHS duloxetine [Cymbalta] 60 mg capsule,delayed release(DR/EC) 60 mg PO DAILY cholecalciferol (vitamin D3) 1,250 mcg (50,000 unit) tablet 1,250 mcg PO MO insulin lispro [Humalog KwikPen Insulin] 100 unit/mL insulin pen See Protocol subcut [facility] Protocol: 6. Sliding Scale Insulin Custom Condition: [...] in before D/C Order can be placed): Detention Facility (6) Anemia Qualifiers: Anemia type: iron deficiency Iron deficiency anemia type: other iron deficiency Qualified Code(s): D50.8 - Other iron deficiency anemias 01/26/23 1157 <Electronically signed by Ryan Tinoco MD> Cosigner Signature (if applicable): CC: Dr. Luis Caldera MD; Dr. Lizzeth Riggs MD ~ [facility] Work Phone: 1([phone]) 747-956807-14-2023 Progress note Author [facility] January 25, 2023 4:08pm Note Date/Time January 25, 2023 1:09 pm [facility] Medical Records Department [address] [place] [address] Progress Note - Cardiology 01/25/23 1308 MR#: [id number] Acct: [id number] Name: RICHARD ROY Rep #:[id number] : 1945 77 From: Rebecca LOZA PA PCP: Dr. Luis Caldera MD Status :ADM IN [facility] Documented by User: DENIA Wilkinson 01/25/23 [...] Albumin (DAVID) 2.5 L, Albumin/Globulin (DAVID) 1.4, Dofjf-0-Rjlvhdbbj DAVID 0.2, Xeaku-3-Iuiunnuez DAVID 0.6, Beta-Globulins (DAVID) 0.7, Gamma Globulins [...] 83.4 H, Lymph % (Auto) 5.9 L, Marinette % (Auto) 7.8, Eos % (Auto) 1.0, [...] 83.4 H, Lymph % (Auto) 5.9 L, Marinette % (Auto) 7.8, Eos % (Auto) 1.0, [...] stable hemodynamically. Charges/Coding Visit Charges Inpatient E&M: 68737 Subs Hosp L2 Documented by User: Dr. [...] notes and documentation Patient to follow-up as clean energy policy analyst Dr. Chandra with the results of the event monitor. To evaluate for permanent pacemaker implant. 01/25/23 1414 <Electronically signed by Rebecca LOZA> Cosigner Signature (if applicable): 01/25/23 1608 <Electronically signed by Lizzeth Riggs MD> CC: ~ Signed [facility] Work Phone: 1(500) 724-594707-14-2023 Progress note Author Ryan Tinoco [facility] January 25, 2023 2:08pm Note Date/Time January 25, 2023 9:30 am [facility] Medical Records Department [facility] [place] [address] [place] [address] Progress Note - Hospitalist 01/25/23 0928 MR#: [id number] Acct: [id number] Name: RICHARD ROY Rep #:[id number] : 1945 77 From: Ryan Delgado PCP: Dr. Luis Caldera MD Status :ADM IN Location: [place] [address] Reason for Visit Reason for Visit: Diagnoses [...] 83.4 H, Lymph % (Auto) 5.9 L, Marinette % (Auto) 7.8, Eos % (Auto) 1.0, [...] Heart rate in 50s.. Discussed with the clean energy policy analyst. No chest pain or tightness. Physical exam [...] is a 77-year-old gentleman being admitted from [facility] for multiple episodes of syncope and [...] the . His medical care is under [facility]. 01/22: Hemoglobin dropped to 8.9. Patient had [...] Albumin (DAVID) 2.5 L, Albumin/Globulin (DAVID) 1.4, Tqfdu-1-Xtpjjwmmc DAVID 0.2, Kazkr-9-Svilcwnai DAVID 0.6, Beta-Globulins (DAVID) 0.7, Gamma Globulins [...] 83.4 H, Lymph % (Auto) 5.9 L, Marinette % (Auto) 7.8, Eos % (Auto) 1.0, [...] there was 2 dropped heartbeat in EKG. color television console monitor shows heart rate slowed down to 48 to 60/min. EKG in the morning about 6 AM today shows sinus rhythm with second- degree Mobitz type II block, RBBB, LAFB bifascicular block. Patient has history of bifascicular block. I talked to the patient's and informed her about the update. Patient has history of ascending aortic aneurysmand had that repaired along with aortic valve in [facility]. His clean energy policy analyst is Dr. Huston in [facility]. I think this is most probably due to start of the octreotide drip as patient was in sinus normal rhythm at time ofadmission. Octreotide discontinued. Pipe Line Repairer consulted. 2D echo ordered. 01/23: Echo states EF 55 to 60%, normal LV systolic function. Trivial MR. Mild diffuse aortic valve calcification. Normal left atrium. Plan: Pipe Line Repairer will talk to Dr. Chandra regarding assessment for pacemaker 01/24: Patient has hypernatremia and hyperchloremia. IV fluid D5W started. Patient is still has AV block, P waves but rhythm is irregular. Twelve-lead EKGordered. Discussed with the clean energy policy analyst. Dr. Ling will talk to Dr. Chandra. 01/25: For now plan is to monitor. No plan for pacemaker as per the clean energy policy analyst. color television console monitor shows irregular heartbeat , Mobitz type II. [...] or advanced directive. His is power of patent attorney for health. After discussion of benefits/risks [...] systolic function Charges/Coding Visit Charges Inpatient E&M: 67624 Subs Hosp L2 01/25/23 1408 <Electronically signed by Ryan Tinoco MD> Cosigner Signature (if applicable): CC: ~ Signed [facility] Work Phone: 1(406) 691-265307-13-2023 Progress note Author [facility] January 24, 2023 8:23pm Note Date/Time January 24, 2023 8:23 pm [facility] Medical Records Department [address] [place] [address] Progress Note - Hospitalist 01/24/232021 MR#: [id number] Acct: [id number] Name: RICHARD ROY Rep #:[id number] : 1945 77 From: Karen Aly MD PCP: Dr. 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 He is asymptomatic. Cardiology following and made aware also by RN that it is recurrent. 01/24/232022 <Electronically signed by Karen Aly MD> Cosigner Signature (if applicable): CC: ~ Signed [facility] Work Phone: [phone] Progress note Author Liu Hackett [facility] January 24, 2023 5:07pm Note Date/Time January 24, 2023 5:07 pm [facility] Medical Records Department [address] [place] [address] Progress Note - GI 01/24/231702 MR#: [id number] Acct: [id number] Name: RICHARD ROY Rep #:[id number] : 1945 77 From: Liu Hackett DO PCP: Dr. Luis Caldera MD Status :ADM IN Location: [place] [address] Subjective Subjective Patient laying in bed with [...] 82.8 H, Lymph % (Auto) 5.3 L, Marinette % (Auto) 8.9, Eos % (Auto) 1.3, [...] ensure healing. Charges/Coding Visit Charges Inpatient E&M: 52006 Subs Hosp L3 01/24/23 1707 <Electronically signed by Liu Friend DO> Cosigner Signature (if applicable): CC: ~ Signed [facility] Work Phone: 1(898) 249-922107-13-2023 Progress note Author Silvestrecarliedebbi Riggs [facility] January 24, 2023 4:25pm Note Date/Time January 24, 2023 1:41 pm [facility] Medical Records Department [address] [place] [address] Progress Note - Cardiology 01/24/23 1338 MR#: [id number] Acct: [id number] Name: RICHARD ROY Rep #:[id number] : 1945 77 From: Rebecca LOZA PCP: Dr. Luis Caldera MD Status :ADM IN Location: [place] [address] Documented by User: DENIA Wilkinson 01/24/23 13:45 [...] 82.8 H, Lymph % (Auto) 5.3 L, Marinette % (Auto) 8.9, Eos % (Auto) 1.3, [...] 82.8 H, Lymph % (Auto) 5.3 L, Marinette % (Auto) 8.9, Eos % (Auto) 1.3, [...] by GI. Charges/Coding Visit Charges Inpatient E&M: 05585 Subs Hosp L2 Documented by User: Dr. [...] by Lizzeth Riggs MD> CC: ~ Signed [facility] Work Phone: [phone]) 220-473507-13-2023 Miscellaneous Notes* Telephone Encounter - Tamika Grijalva [...] to say patient was at [facility] for rehabilitation after his hospitalization @ [facility] for confusion on 01/04. He was sent by squad to [facility] from [facility] on 01/21 due to episode of decreased [...] post hospital stay but it won't be [facility]. Vannessa Jorge RN [facility] Progress note Author Ryan Tinoco [facility] January 24, 2023 1:11pm Note Date/Time January 24, 2023 8:05 am [facility] Medical Records Department [address] [place] [address] Progress Note - Hospitalist 01/24/23 0758 MR#: [id number] Acct: [id number] Name: RICHARD ROY Rep #:[id number] : [...] Antibody < 0.2, Sm (Martinez) Antibody <0.2, TERMINAL MANAGER Antibody <0.2, Scl-70 Scleroderma Ab <0.2, Double [...] 82.8 H, Lymph % (Auto) 5.3 L, Marinette % (Auto) 8.9, Eos % (Auto) 1.3, [...] waves. Twelve-lead EKG ordered.. Discussed with the clean energy policy analyst. No chest pain or tightness. General: Awake [...] is a 77-year-old gentleman being admitted from [facility] for multiple episodes of syncope and [...] the . His medical care is under [facility]. 01/22: Hemoglobin dropped to 8.9. Patient had [...] there was 2 dropped heartbeat in EKG. color television console monitor shows heart rate slowed down to 48 to 60/min. EKG in the morning about 6 AM today shows sinus rhythm with second- degree Mobitz type II block, RBBB, LAFB bifascicular block. Patient has history of bifascicular block. I talked to the patient's and informed her about the update. Patient has history of ascending aortic aneurysmand had that repaired along with aortic valve in [facility]. His clean energy policy analyst is Dr. Huston in [facility]. I think this is most probably due to start of the octreotide drip as patient was in sinus normal rhythm at time ofadmission. Octreotide discontinued. Pipe Line Repairer consulted. 2D echo ordered. 01/23: Echo states EF 55 to 60%, normal LV systolic function. Trivial MR. Mild diffuse aortic valve calcification. Normal left atrium. Plan: Pipe Line Repairer will talk to Dr. Chandra regarding assessment for pacemaker 01/24: Patient has hypernatremia and hyperchloremia. IV fluid D5W started. Patient is still has AV block, P waves but rhythm is irregular. Twelve-lead EKGordered. Discussed with the clean energy policy analyst. Dr. Ling will talk to Dr. Chandra. [...] or advanced directive. His is power of patent attorney for health. After discussion of benefits/risks [...] systolic function Charges/Coding Visit Charges Inpatient E&M: 48918 Subs Hosp L3 01/24/23 1311 <Electronically signed by Ryan Tinoco MD> Cosigner Signature (if applicable): CC: ~ Signed [facility] Work Phone: [phone]) [phone] Progress note Author Lizzeth Riggs [facility] January 23, 2023 2:45pm Note Date/Time January 23, 2023 10:0 0am [facility] Medical Records Department [address] [place] [address] Progress Note - Cardiology 01/23/2346 MR#: [id number] Acct: [id number] Name: RICHARD ROY Rep #:[id number] : [...] 85.3 H, Lymph % (Auto) 4.8 L, Marinette % (Auto) 7.1, Eos % (Auto) 0.7, [...] 85.3 H, Lymph % (Auto) 4.8 L, Marinette % (Auto) 7.1, Eos % (Auto) 0.7, [...] appears stable. Charges/Coding Visit Charges Inpatient E&M: 41177 Subs Hosp L2 01/23/23 1000 <Electronically signed by Rebecca LOZA> Cosigner Signature (if applicable): 01/23/23 1445 <Electronically signed by Lizzeth Riggs MD> CC: ~ Signed [facility] Work Phone: 1(400) 595-190207-12-2023 Procedure [facility] 01-23-2023 Procedure [facility]07-12-2023 Progress note Author Ryan Tinoco [facility] January 23, 2023 9:01am Note Date/Time January 23, 2023 9:01 am [facility] Medical Records Department [address] [place] [address] Progress Note - Hospitalist 01/23/23 0852 MR#: [id number] Acct: [id number] Name: RICHARD ROY Rep #:[id number] : [...] 85.3 H, Lymph % (Auto) 4.8 L, Marinette % (Auto) 7.1, Eos % (Auto) 0.7, [...] every third beat dropped. Discussed with the clean energy policy analyst. No chest pain or tightness. General: Oriented [...] is a 77-year-old gentleman being admitted from [facility] for multiple episodes of syncope and [...] the . His medical care is under [facility]. 01/22: Hemoglobin dropped to 8.9. Patient had [...] there was 2 dropped heartbeat in EKG. color television console monitor shows heart rate slowed down to 48 to 60/min. EKG in the morning about 6 AM today shows sinus rhythm with second- degree Mobitz type II block, RBBB, LAFB bifascicular block. Patient has history of bifascicular block. I talked to the patient's and informed her about the update. Patient has history of ascending aortic aneurysmand had that repaired along with aortic valve in [facility]. His clean energy policy analyst is Dr. Huston in [facility]. I think this is most probably due to start of the octreotide drip as patient was in sinus normal rhythm at time ofadmission. Octreotide discontinued. Pipe Line Repairer consulted. 2D echo ordered. 01/23: Echo states EF 55 to 60%, normal LV systolic function. Trivial MR. Mild diffuse aortic valve calcification. Normal left atrium. Plan: Pipe Line Repairer will talk to Dr. Chandra regarding assessment [...] or advanced directive. His is power of patent attorney for health. After discussion of benefits/risks [...] organ systems), coordination with cardiology and GI car sales consultant, review of labs and imaging is 50 minutes. Visit Charges Inpatient E&M: 93736 Subs Hosp L3 01/23/23 0901 <Electronically signed by Ryan Tinoco MD> Cosigner Signature (if applicable): CC: ~ Signed [facility] Work Phone: 1([phone]) 405-372507-11-2023 Consult note Author Rebecca Leon [facility] January 22, 2023 4:28pm Note Date/Time January 22, 2023 4:07 pm [facility] Medical Records Department [address] [place] [address] Consultation - Cardiology 01/22/23 1605 MR#: [id number] Acct: [id number] Name: RICHARD ROY Rep #:[id number] : [...] hospital stay he was discharged to a long-term facility for rehab. He presented back to the emergency room yesterday for syncope. The nurses at [facility] had noted that he was unresponsive [...] at his last hospital stay. [facility] Medical History (Updated 01/22/23 @ [...] Charges/Coding Visit Charges Office Visits / Consults: 15603 IP Consult L3 Objective Data Vital Signs: [...] RDW Coeff of Nathaniel 15.5 H, Plt Uqcty977, MPV 10.1, Immature Gran % (Auto) 3.300 H, Neut % (Auto) 81.9 H, Lymph % (Auto) 5.9 L, Marinette % (Auto) 8.0, Eos % (Auto) 0.7, [...] 81.9 H, Lymph % (Auto) 5.9 L, [place]ette % (Auto) 8.0, Eos % (Auto) 0.7,Baso [...] Rhythm: EKG:Second degree AVB type II 01/22/23 9725 <Electronically signed by Rebecca LOZA> Cosigner Signature (if applicable): CC: Dr. Luis Caldera MD; Dr. Lizzeth Riggs MD~ Signed [facility] Work Phone: [phone]) 787-857507-11-2023 Progress note Author Ryan Tinoco [facility] January 22, 2023 8:38am Note Date/Time January 22, 2023 8:22 am [facility] Medical Records Department [address] [place] [address] Progress Note - Hospitalist 01/22/23 0819 MR#: [id number] Acct: [id number] Name: RICHARD ROY Rep #:[id number] : [...] 87.8 H, Lymph % (Auto) 7.5 L, Marinette % (Auto) 2.4, Eos % (Auto) 0.0, [...] Clarity Clear, Urine pH 5.0, Ur Specific [place] 1.020, Urine Protein 15 H, Urine Glucose [...] RDW Coeff of Nathaniel 15.5 H, Plt Jisox811, MPV 10.1, Immature Gran % (Auto) 3.300 H, Neut % (Auto) 81.9 H, Lymph % (Auto) 5.9 L, Marinette % (Auto) 8.0, Eos % (Auto) 0.7, Baso % (Auto) 0.2, Absolute Neuts (auto) 18.3 H, Absolute Lymphs (auto) 1.33, Nucleated RBC % 0.1, Diff PathReview May , Polychromasia 1+, Anisocytosis 1+, Sodium 144, Potassium [...] havingirregular heartbeat after midnight, initially A-fib on court monitor. After that about 5 AM patient [...] is a 77-year-old gentleman being admitted from [facility] for multiple episodes of syncope and [...] the . His medical care is under [facility]. 01/22: Hemoglobin dropped to 8.9. Patient had [...] there was 2 dropped heartbeat in EKG. color television console monitor shows heart rate slowed down to 48 to 60/min. EKG in the morning about 6 AM today shows sinus rhythm with second- degree Mobitz type II block, RBBB, LAFB bifascicular block. Patient has history of bifascicular block. I talked to the patient's and informed her about the update. Patient has history of ascending aortic aneurysmand had that repaired along with aortic valve in [facility]. His clean energy policy analyst is Dr. Huston in [facility]. I think this is most probably due to start of the octreotide drip as patient was in sinus normal rhythm at time ofadmission. Octreotide discontinued. Pipe Line Repairer consulted. 2D echo ordered. 3. Essential hypertension [...] or advanced directive. His is power of patent attorney for health. After discussion of benefits/risks procedures involved with full code, DNR CC arrest and DNR CC, the patient and his opted for full code. Patient does want artificial life support including intubation, tube feed, ventilator and/chest compression, central venous catheter, vasopressor and DC shock if needed Charges/Coding Visit Charges Inpatient E&M: 85848 [facility] Hosp L3 01/22/23 0838 <Electronically signed by Ryan Tinoco MD> Cosigner Signature (if applicable): CC: ~ Signed [facility] Work Phone: 1(571) 335-802107-10-2023 Consult note Author Liu Hackett [facility] January 21, 2023 7:07pm Note Date/Time January 21, 2023 7:04 pm [facility] Medical Records Department [address] [place] [address] Consultation - GI 01/21/23 1902 MR#: [id number] Acct: [id number] Name: RICHARD ROY Rep #:[id number] : [...] DVT and atrial fibrillation. [facility] [...] 10.9 from 13.1 on discharge. [facility] Medical History Amputation of right [...] 87.8 H, Lymph % (Auto) 7.5 L, Marinette % (Auto) 2.4, Eos % (Auto) 0.0, [...] Clarity Clear, Urine pH 5.0, Ur Specific [place] 1.020, Urine Protein 15 H, Urine Glucose [...] 6 hours. Charges/Coding Visit Charges Inpatient E&M: 61690 Init Hosp L3 01/21/231906 <Electronically signed by Liu Friend DO> Cosigner Signature (if applicable): CC: Dr. Luis Caldera MD~ Signed [facility] Work Phone: 1(434) 249-278307-10-2023 Discharge summary Author Dandy Sauer [facility] January 21, 2023 5:25pm Note Date/Time January 21, 2023 9:06 am [facility] Medical Records Department [address] [place] [address] Emergency Department Summary 01/21/23 MR#: [id number] Acct: [id number] Name: RICHARD ROY Rep #:[id number] : 1945 77 From: Dandy Sauer MD PCP: Dr. Luis Caldera MD Status :ADM IN Location: ICU CVICU20 2-1 HPI History of Present Illness Chief Complaint: Syncope Informant: spouse/S.O., EMS and SNF Narrative Narrative: Patient sent from [facility] where he has been for several [...] pain, but he denies it right now. [facility] Medical History Amputation of right [...] Last Taken 01/03/23] warfarin 5 mg tablet (Jultoven) 7.5 mg PO SUTUTHFRSA anticoagulant 05/22/18 [History [...] place including the state. Downgoing toes bilaterally [place] Coma Scale: document GCS findings To Voice [...] 87.8 H Lymph % (Auto) 7.5 L Marinette % (Auto) 2.4 Eos % (Auto) 0.0 [...] Management Discussion w/another healthcare provider: Hospitalist and Car Audio Installer (GI) Critical Care Time Critical Care Time: Yes Critical care time (excluding procedures): 30-74 minutes (33 min), Including time spent:, Discussing w/Patient &/or Family/Billing And Insurance Coordinator, Discussing w/Consultants, Arranging Admission or Transfer and Performing Direct Patient Care at Bedside Discharge Plan Dx/Rx/DC Orders Clinical Impression: Acute encephalopathy, Syncope, Supratherapeutic INR, ABLA (acute blood loss anemia), Upper gastrointestinal bleeding, Warfarin-induced coagulopathy Disposition Disposition: [facility] Capacity Capacity Assessment Tool Can [...] your Primary Care Provider. Call [facility] ([phone]) or report to the closest Emergency Room. Call 911 if necessary. 01/21/23 1725 <Electronically signed by Dandy Sauer MD> Cosigner Signature (if applicable): CC: Dr. Luis Caldera MD ~ Signed [facility] Work Phone: 1(767) 656-620707-10-2023 History and physical note Author Ryan Tinoco [facility] January 21, 2023 12:24pm Note Date/Time January 21, 2023 11:5 8am [facility] Medical Records Department [address] [place] [address] H&P Exam - Hospitalist 01/21/23 1156 MR#: [id number] Acct: [id number] Name: RICHARD ROY Rep #:[id number] : 1945 77 From: Ryan Delgado PCP: Dr. Luis Caldera MD Status :ADM IN Location: ICU CVICU20 2-1 HPI - General General Date of Admission: 01/21/23 Date of Service: 01/21/23 Chief Complaint: Patient was unresponsive in the morning. Had large black tarrystool. HPI Narrative RICHARD ROY, is a 77 M gentleman was brought from [facility] to senior living for syncopal episodes and [...] in in the context of [facility] Medical History Amputation of right [...] Last Taken 01/20/23] warfarin 5 mg tablet ([place]) 7.5 mg PO SUTUWETHFRSA anticoagulant 05/22/18 [History [...] 87.8 H, Lymph % (Auto) 7.5 L, Marinette % (Auto) 2.4, Eos % (Auto) 0.0, [...] Clarity Clear, Urine pH 5.0, Ur Specific Goodland 1.020, Urine Protein 15 H, Urine Glucose [...] is a 77-year-old gentleman being admitted from [facility] for multiple episodes of syncope and [...] the . His medical care is under [facility]. 2 Syncopal episode most likely due to [...] or advanced directive. His is power of patent attorney for health. After discussion of benefits/risks procedures involved with full code, DNR CC arrest and DNR CC, the patient and his opted for full code. Patient does want artificial life support including intubation, tube feed, ventilator and/chest compression, central venous catheter, vasopressor and DC shock if needed Total time spent in cpor-fh-qxem encounter in discussion of advanced directive 17 [...] 87.8 H, Lymph % (Auto) 7.5 L, Marinette % (Auto) 2.4, Eos % (Auto) 0.0, [...] Clarity Clear, Urine pH 5.0, Ur Specific Goodland 1.020, Urine Protein 15 H, Urine Glucose (UA) 100 H, Urine Ketones 15 H, Urine Occult Blood Negative, Urine Nitrite Negative, Urine Bilirubin 1 H, Urine Urobilinogen Normal, Ur Leukocyte Esterase Negative, Urine RBC 0 SEEN, Urine WBC 0-5 SEEN, Ur Squamous Epith Cells 0-5 SEEN, Urine Bacteria 0 SEEN, Urine Mucus 0 SEEN Charges/Coding Visit Charges Inpatient E&M: 52248 Init Hosp L3 Procedures Hospitalists Procedures: 48678 Advncd Care Plan 30 Min 01/21/233 <Electronically [...] MD; Dr. Ryan Tinoco MD ~* Signed [facility] Work Phone: 1(256) 557-634106-23-2023 Miscellaneous Notes* Telephone Encounter - Amada Cohn [...] again recommend ER evaluation. documented in this encounterBluffton Hospital06-23-2023 Miscellaneous Notes* Telephone Encounter - Tamika [...] 01/04. Vannessa Jorge, RN documented in this encounterBluffton Hospital06-22-2023 History of Present illness Narrative* Justina [...] included: Therapeutic exercise, Neuromuscular re-education, Therapeutic activities, Self-half-way management, and Gait training. Goals for Episode [...] PARTIALLY MET, improved 8 to 9 reps Nelson in home exercise program including cardiovascular exercise. [...] with an (*). Patient education as noted. Self-Fci Management: 1: *strongly enouraged f/u with physician [...] 5 Justina Escoto PT documented in this encounterBluffton Hospital06-19-2023 History of Present illness Narrative* Justina [...] Treatment Time Minutes (timed/untimed): 42 Ira Ramos, JAILER/TRAINING OFFICER Justina Escoto PT documented in this encounterBluffton Hospital06-15-2023 History of Present illness Narrative* Justina [...] Treatment Time Minutes (timed/untimed): 40 Ira Ramos, JAILER/TRAINING OFFICER Justina Escoto PT documented in this encounterBluffton Hospital06-12-2023 History of Present illness Narrative* Justina [...] was facilitated with verbal and visual cueing. Self-Fci Management: 1: *strongly encouraged pt. to be [...] 40 Justina Escoto PT documented in this encounterBluffton Hospital06-05-2023 History of Present illness Narrative* Justina [...] of gait belt. Patient education as noted. Self-Fci Management: 1: *discussed automatic lights 2: *discussed [...] 40 Justina Escoto PT documented in this encounterBluffton Hospital06-02-2023 History of Present illness Narrative* Justina [...] 40 Justina Escoto PT documented in this encounterBluffton Hospital05-31-2023 History of Present illness Narrative* Justina [...] 40 Justina Escoto PT documented in this encounterBluffton Hospital05-09-2023 Miscellaneous Notes* Telephone Encounter - GABI Link - 11/20/2022 9:19 AM EDT [facility] 11/19/22 Appointment scheduled 02/05/23 Please advise. Thank [...] to the pharmacy. Please call patient at: [phone]. Nola Velasco documented in this encounterBluffton Hospital05-08-2023 Miscellaneous Notes* Telephone Encounter - Tania [...] and result): 09/24/2022 2.5 documented in this encounterBluffton Hospital04-10-2023 History of Present illness Narrative* Zachary Sabas - 10/22/2022 3:34 PM EDT Last saw [...] Patient, Diabetic Foot Care documented in this encounterBluffton Hospital04-10-2023 Instructions* Patient Instructions* Zachary Obregon - [...] (or decreased sensation in your feet) a tower dragline operator should always cut your toenails. Be [...] Go to your health care provider or tower dragline operator to treat these conditions. documented in this encounterBluffton Hospital03-14-2023 Miscellaneous Notes* Telephone Encounter - Rebecca [...] Information or narrative: no documented in this encounterBluffton Hospital02-24-2023 Miscellaneous Notes* Telephone Encounter - Suzanne Connelly RN - 09/07/2022 1:11 PM EST Call to patient. Provided number to schedule- [phone]. Offered to transfer patient to schedulebut patient declined to schedule stating he could call later. PAOLA Potter, RN September 07, 2022 1:11 PM * Telephone Encounter - Jojo Kaur MD - 09/07/2022 11:39 AM EST Suzanne please let patient know how to proceed with driving evaluation I already put the order in computer documented in this encounterBluffton Hospital02-24-2023 History of Present illness Narrative* Jojo [...] evaluation of folllow up after hospitalization in [facility]. he was admitted because of syncopal [...] others Since covid hit [facility] and was staying in the house by [...] 04/01/2012 NSTEMI (non-ST elevated myocardial infarction) ([facility]) Pulmonary embolus, right (HCC) 09/25/2013 Status post aortic valve repair 2005 Thoracic aneurysm without mention of rupture Type 2 diabetes mellitus with stage 3 chronic kidney disease, with long-term current use of insulin(HCC) 06/20/2016 Vitamin D deficiency 01/03/2022 PSH: PAST SURGICAL HISTORY Procedure Laterality Date ABDOMINAL SURGERY HX AMPUTATION METATARSAL+TOE,SINGLE Right 05/25/2018 with delayed closure on 05/28/18. Dr. Obregon at [facility] COLONOSCOPY 10/10/2021 repeat in 3 years [...] gait ,unsteady Cannot tandem Jojo Kaur M.D. [facility] [place] Department of Neurology Total time in minutes [...] lights on at night. documented in this encounterBluffton Hospital02-14-2023 Miscellaneous Notes* Telephone Encounter - Tamika [...] 08/13/22- 2.7 Additional Clinical Information or narrative: debar Heller LPN documented in this encounterBluffton Hospital02-02-2023 Miscellaneous Notes* Telephone Encounter - Grecia [...] notify patient. Grecia Bustillo documented in this encounterBluffton Hospital01-31-2023 Miscellaneous Notes* Telephone Encounter - Tamika [...] Information or narrative: no documented in this encounterBluffton Hospital01-26-2023 History of Present illness Narrative* Abdulaziz [...] 12 months ago. Going to schedule appointment [facility] [place]. 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 Asymtpomatic still on medical management. Has completed his home PT/OT. Echo and stress test at [facility] were negative/normal. Has follow up with Dr. Huston on 12/03. questioning if they should be seen sooner. BP well controlled with current regimen <130/80. BPH: With use of flomax, patient is getting up once at night to urinate. Has weak stream, but denies straining, incomplete emptying, dysuria, hematuria, incontinence. Followed up with ENT in [place] for chronic frontal sinusitis on CT/MRI going [...] delayed closure on 05/28/18. Dr. Obregon at [facility] COLONOSCOPY 10/10/2021 repeat in 3 years [...] by mouth once daily. blood sugar diagnostic ([place] ULTRA TEST) test strip Test blood sugar(s) [...] Abs Lymph 1.00 - 4.00 k/uL 1.81 Marinette% % 6.9 Abs Marinette <0.87 k/uL 0.86 Eosin% % 3.1 Abs [...] with long-term current use of insulin ([facility]) -ICD9: 250.60, 357.2, V58.67, ICD10: [...] associated with type 2 diabetes mellitus ([facility]) - ICD9: 250.60, 357.2, ICD10: E11.42 Controlled on current regimen. 3. NSTEMI (non-ST elevated myocardial infarction) ([facility]) - ICD9: 410.70, ICD10: I21.4 [...] reigmen. Abdulaziz Caldera MD documented in this encounterBluffton Hospital01-23-2023 Miscellaneous Notes* Telephone Encounter - Tamika [...] pt. Mila Castro LPN documented in this encounterBluffton Hospital01-23-2023 History of Present illness Narrative* Zachary [...] or electronic medical record. documented in this encounterBluffton Hospital01-17-2023 Miscellaneous Notes* Telephone Encounter - Melba [...] 2022. Rebecca Esteban LPN documented in this encounterBluffton Hospital01-13-2023 Miscellaneous Notes* Telephone Encounter - Meghana Burgess - 07/27/2022 9:55 AM EST [employer] message not read as of 07/27/2022. Called and spoke with patient. Appt rescheduled to 09/07/2022 at 11:00 AM Meghana Burgess * Telephone Encounter - Meghana Burgess - 07/05/2022 4:08 PM EST Due to change in provider's schedule, appt on 08/21/2022 needs rescheduled. Patient notified via [employer] message on 07/05/2022. Meghana Burgess documented in this encounterBluffton Hospital01-12-2023 Miscellaneous Notes* Telephone Encounter - Abdulaziz Caldera MD - 07/26/2022 3:09 PM EST Thanks. * Telephone Encounter - Ann Castillo RN - 07/26/2022 3:04 PM EST Darlyn, a nurse with [facility] calling to state she has discharged pt from long-term today. Pt is doing really well. No call back needed. Thank you. documented in this encounterBluffton Hospital01-11-2023 Miscellaneous Notes* Telephone Encounter - Suzanne Lino RN - 07/25/2022 1:42 PM EST Last Office Visit: 07/12/2022 Future Office Visit: 08/09/2022 Requested Prescriptions Pending Prescriptions Disp Refills amLODIPine (NORVASC) 2.5 mg tablet 30 tablet 5 Sig: Take 1 tablet by mouth once daily. Date of Last Labs: 03/02/2022 documented in this encounterBluffton Hospital01-03-2023 Miscellaneous Notes* Telephone Encounter - Abdulaziz Caldera MD - 07/17/2022 12:58 PM EST Reviewed and agree. * Telephone Encounter - Halima Diaz RN - 07/17/2022 12:51 PM EST Maverick PT calling from [facility] to report plan of care for patient and PT will visit patient 2 times a week for 3 weeks. PT will work with patient on functional mobility training. Halima Diaz RN documented in this encounterBluffton Hospital01-03-2023 Miscellaneous Notes* Telephone Encounter - Abdulaziz Caldera MD - 07/17/2022 11:18 AM EST Reviewed. * Telephone Encounter - Eva Schmid LPN - 07/17/2022 11:12 AM EST Barbi from [facility] calling with OT plan of care, one time visit only, patient denies any further OT needs. No call back needed. documented in this encounterBluffton Hospital12-30-2022 Miscellaneous Notes* Telephone Encounter - Ewa Andino Ma - 07/13/2022 11:30 AM EST Left detailed message on confidential line Ewa Andino Ma * Telephone Encounter - Abdulaziz Caldera MD - 07/13/2022 11:01 AM EST agree * Telephone Encounter - Ann Castillo RN - 07/13/2022 10:00 AM EST Chiki, a nurse with [facility] calling with Detention Plan of Care for patient: Patient will be seen 1 time per week for 4 weeks for BP monitoring. No call back needed if provider agreeable. Thank you. documented in this encounterBluffton Hospital12-29-2022 Miscellaneous Notes* Telephone Encounter - Ewa Andino Ma - 07/12/2022 10:53 AM EST Karly was notified Ewa Andino Ma * Telephone Encounter - Abdulaziz Caldera MD - 07/12/2022 10:47 AM EST Agree and will follow * Telephone Encounter - Marcella Alvarez RN - 07/12/2022 10:07 AM EST Karly with [facility] called and reports Pt was discharged yesterday and they received a referral for PT/OT/SN. They are going to do their start of care tomorrow, and she was asking if the provider would be willing to follow. documented in this [facility]12-26-2022 Miscellaneous Notes* Telephone Encounter - Suzanne Lino RN - 07/09/2022 11:46 AM EST Last Office Visit: 04/16/2022 Future Office Visit: 09/17/2022 Requested Prescriptions Pending Prescriptions Disp Refills dulaglutide (TRULICITY) 1.5 mg/0.5 mL pen injector 12 Each 3 Sig: Inject 1.5 mg subcutaneously one time a week. Inject once per week. Discard Pen After Date of Last Labs: 03/02/2022 documented in this [facility]12-12-2022 Miscellaneous Notes* Telephone Encounter - Tania [...] patient. Tania Heller LPN documented in this [facility]11-02-2022 Miscellaneous Notes* Telephone Encounter - Mila [...] you. Mila Castro LPN documented in this encounterBluffton Hospital10-04-2022 History of Present illness Narrative* Jojo [...] evaluation of folllow up after hospitalization in [facility]. 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 ([facility]) 05/25/2018 History of transfusion Hyperlipidemia LDL goal < 100 04/01/2012 Pulmonary embolus, right ([facility]) 09/25/2013 Status post aortic valve repair 2005 Thoracic aneurysm without mention of rupture Type 2 diabetes mellitus with stage 3 chronic kidney disease, with long-term current use of insulin([facility]) 06/20/2016 Vitamin D deficiency 01/03/2022 PSH: PAST SURGICAL HISTORY Procedure Laterality Date ABDOMINAL SURGERY HX AMPUTATION METATARSAL+TOE,SINGLE Right 05/25/2018 with delayed closure on 05/28/18. Dr. Obregon at [facility] COLONOSCOPY 10/10/2021 repeat in 3 years [...] week. Discard Pen After blood sugar diagnostic (ImpactGamesTOUCH ULTRA TEST) test strip Test blood sugar(s) [...] gait ,unsteady Cannot tandem Jojo Kaur M.D. [facility] [place] Department of Neurology Total time in minutes [...] lights on at night. documented in this encounterBluffton Hospital10-04-2022 Miscellaneous Notes* Telephone Encounter - Abdulaziz Caldera MD - 04/17/2022 11:24 AM EDT Reviewed. * Telephone Encounter - MERYL Zamudio - 04/17/2022 11:03 AM EDT Behavioral Health Social Work Progress Note Patient identified for [facility] from: PCP Reason for referral: [facility] Behavioral Health Resources: Psychology - talk therapy [facility] encounter type: Telephone Encounter Attempts to [...] [facility] [address] , [address], [facility] [address] *counseling [employer] [id number] [place] [address] *counseling [facility] [address] [place] [address] *counseling [facility] [address] [place] [address] FEDERICO Zamudio April 17, 2022 documented in this encounterBluffton Hospital10-03-2022 History of Present illness Narrative* Abdulaziz [...] Cazares Diabetes mellitus with neurological manifestation ([facility]) 09/08/2010 Diabetic retinopathy of right eye ([facility]) mild Diverticulosis of colon (without mention of hemorrhage) Encounter for monitoring Coumadin therapy 09/23/2013 INR goal 2.5-3.5 Essential hypertension, benign 10/28/2012 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 ([facility]) 05/25/2018 History of transfusion Hyperlipidemia LDL goal < 100 04/01/2012 Pulmonary embolus, right ([facility]) 09/25/2013 Status post aortic valve repair 2005 Thoracic aneurysm without mention of rupture Type 2 diabetes mellitus with stage 3 chronic kidney disease, with long-term current use of insulin([facility]) 06/20/2016 Vitamin D deficiency 01/03/2022 Previous Surgical History PAST SURGICAL HISTORY Procedure Laterality Date ABDOMINAL SURGERY HX AMPUTATION METATARSAL+TOE,SINGLE Right 05/25/2018 with delayed closure on 05/28/18. Dr. Obregon at [facility] COLONOSCOPY 10/10/2021 repeat in 3 years [...] Abs Lymph 1.00 - 4.00 k/uL 1.81 Marinette% % 6.9 Abs Marinette <0.87 k/uL 0.86 Eosin% % 3.1 Abs [...] regimen. Abdulaziz Caldera MD documented in this encounterBluffton Hospital10-03-2022 Evaluation note* Diagnosis Type 2 diabetes mellitus with stage 3a chronic kidney disease, with long-term current use of insulin ([facility])- Primary 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, macular edema presence unspecified ([facility]) Essential hypertension, benign Hyperlipidemia with target LDL less than 100 Other and unspecified hyperlipidemia Mild depression Depressive disorder, not elsewhere classified BPH without urinary obstruction Hypertrophy of prostate without urinary obstruction and other lower urinary tract symptoms (LUTS) documented in this encounter [facility]09-23-20[facility] History of Present illness Narrative* Roselia Raglandlogdvaid, FRONT DESK PERSON.MANAGER SIMULATION - 04/06/2022 9:40 AM EDT 04/06/2022 Patient [...] disease, with long-term current use of insulin([facility]) 06/20/2016 Vitamin D deficiency 01/03/2022 [...] ONCE DAILY. FOR CHOLESTEROL. blood sugar diagnostic (SittercityUCH ULTRA TEST) test strip Test blood sugar(s) [...] SEASONAL QUADRIVALENT HIGH DOSE AGE 65+ - [employer] COVID-19 BIVALENT BOOSTER VACCINE, AGE 12+ YR 3. Mild depression - ICD9: 311, ICD10: F32.A - discussed antidepressant - patient declines- he reports he does not feel depressed - encouraged marriage counseling as seems to be unhappy about his lack of motivation Roselia Podlogar, FRONT DESK PERSON.MANAGER SIMULATION Prescription instructions reviewed with patient as applicable. [...] which included preparing to see the patient, [id number] patient care, completing clinical documentation, obtaining and/or reviewing separately obtained history, performing a medically appropriate examination, and counseling and educating the patient/family/caregiver. documented in this encounterBluffton Hospital09-21-2022 Miscellaneous Notes* Telephone Encounter - Valencia [...] EDT ----- Message from Roselia Madrigal APRN.MANAGER SIMULATION sent at 04/03/2022 2:47 PM EDT ----- Please forward INR to doctor reservations clerk Roselia Madrigal MARYLU.MANAGER SIMULATION documented in this encounterBluffton Hospital09-16-2022 History of Present illness Narrative* Zachary [...] is to RTC in 3-4 months. Zachary Obregno DPM * Merlene Martinez LPN - 03/30/2022 3:29 PM EDT Patient presents with: Left Foot - Established Patient, Follow Up, Diabetic Foot Care Right Foot - Established Patient, Follow Up, Diabetic Foot Care Merlene Martinez LPN documented in this encounterBluffton Hospital09-16-2022 Instructions* Patient Instructions* Zachary Obregon - [...] (or decreased sensation in your feet) a tower dragline operator should always cut your toenails. Be [...] Go to your health care provider or tower dragline operator to treat these conditions. documented in this encounterBluffton Hospital09-09-2022 History of Present illness Narrative* David [...] 01/12/22 through 03/15/22 Goals updated on 03/23/2022. Nelson in home exercise program. (Met) Patient will [...] 42 David Poon PT documented in this encounterBluffton Hospital09-08-2022 Miscellaneous Notes* Telephone Encounter - Maggy Velasco - 03/22/2022 1:49 PM EDT Pharmacy verified in [facility] Patient has been identified by name [...] (246 lb) Not applicable Please advise. Maggy Velasco documented in this encounterBluffton Hospital09-02-2022 History of Present illness Narrative* David [...] Treatment Time Minutes (timed/untimed): 40 Karen Weber, JAILER/TRAINING OFFICER David Poon PT documented in this encounterBluffton Hospital08-29-2022 History of Present illness Narrative* David Poon PT - 03/12/2022 2:26 PM EDT Episode Visit Count: 15 Therapist That Will Oversee The Plan Of Care: Davdi Poon Start of Care Date: 01/12/22 Onset [...] 41 ALISIA Whiting PT documented in this encounterBluffton Hospital08-26-2022 Miscellaneous Notes* Addendum Note - David Poon PT - 03/09/2022 1:18 PM EDTAddended by: DAVID POON on: 03/09/2022 01:18 PM Modules accepted: Orders documented in this encounterBluffton Hospital08-26-2022 History of Present illness Narrative* David [...] 01/12/22 through 03/15/22 Goals updated on 03/09/2022. Nelson in home exercise program. (Met) Patient will [...] Patient to be seen for Therapeutic exercise (52458);Neuromuscular re-education (21414);Gait Training (80352);Patient/Family/Caregiver Education PLAN FOR NEXT VISIT: Add bridging [...] 42 David Poon PT documented in this encounterBluffton Hospital08-24-2022 Miscellaneous Notes* Telephone Encounter - Amada [...] testing Madison Ma Cma documented in this encounterBluffton Hospital08-24-2022 Instructions* Patient Instructions* Abdulaziz Caldera MD - 03/07/2022 11:45 AM EDT Please take 2,000 units of vitamin D daily over the counter. documented in this encounterBluffton Hospital08-24-2022 History of Present illness Narrative* Abdulaziz Caldera MD - 03/07/2022 11:19 AM EDT Chief Complaint Patient presents with: 6 Month Exam ER F/U HPI Richard Roy is a 76 year old male who presents here today for ER Follow Up.. 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 ([facility]) 05/25/2018 History of transfusion Hyperlipidemia LDL goal < 100 04/01/2012 Pulmonary embolus, right ([facility]) 09/25/2013 Status post aortic valve repair 2004 Thoracic aneurysm without mention of rupture Type 2 diabetes mellitus with stage 3 chronic kidney disease, with long-term current use of insulin([facility]) 06/20/2016 Vitamin D deficiency 01/03/2022 Previous Surgical History PAST SURGICAL HISTORY Procedure Laterality Date ABDOMINAL SURGERY HX AMPUTATION METATARSAL+TOE,SINGLE Right 05/25/2018 with delayed closure on 05/28/18. Dr. Obregon at [facility] COLONOSCOPY 10/10/2021 repeat in 3 years [...] ONCE DAILY. FOR CHOLESTEROL. blood sugar diagnostic (Blackfoot ULTRA TEST) test strip Test blood sugar(s) [...] Abs Lymph 1.00 - 4.00 k/uL 1.81 Marinette% % 6.9 Abs Marinette <0.87 k/uL 0.86 Eosin% % 3.1 Abs [...] PANEL Abdulaziz Caldera MD documented in this encounterBluff[facility]08-22-[facility]22 History of Present illness Narrative* David Olivasameera, PT - 03/05/2022 12:46 PM EDT Episode [...] 40 David Poon PT documented in this encounterBluffton Hospital08-19-2022 History of Present illness Narrative* David [...] 45 David Poon PT documented in this encounterBluffton Hospital08-15-2022 History of Present illness Narrative* David [...] 45 David Poon PT documented in this encounterBluffton Hospital08-12-2022 History of Present illness Narrative* David [...] Treatment Time Minutes (timed/untimed): 43 Karen Weber, ALISIA Poon PT documented in this encounterBluffton Hospital08-03-2022 History of Present illness Narrative* David [...] 47 David Poon PT documented in this encounterBluffton Hospital07-29-2022 History of Present illness Narrative* David [...] 01/12/22 through 03/15/22 Goals updated on 02/09/2022. Nelson in home exercise program. (Met) Patient will [...] Patient to be seen for Therapeutic exercise (15121);Neuromuscular re-education (08529);Gait Training (09478);Patient/Family/Caregiver Education PLAN FOR NEXT VISIT: Continue to [...] 44 David Poon PT documented in this encounterBluffton Hospital07-26-2022 Miscellaneous Notes* Telephone Encounter - Nola [...] patient. Nola Castro Pss documented in this encounterBluffton Hospital07-22-2022 History of Present illness Narrative* Cortney [...] 43 ALISIA Whiting PT documented in this encounterBluffton Hospital07-21-2022 Miscellaneous Notes* Telephone Encounter - Mila [...] to pharmacy. No need to notify patient. [facility] documented in this encounterBluffton Hospital07-19-2022 History of Present illness Narrative* Justina [...] 43 ALISIA Whiting PT documented in this encounterBluffton Hospital07-12-2022 Miscellaneous Notes* Telephone Encounter - Rebecca Goznales RN - 01/23/2022 5:42 PM EDT Patient [...] of last office visit in primary care: 6/20/22 Last 2 Encounter Wt Readings: Date: Wt: 01/05/2022 111.6 kg (246 lb) 01/01/2022 111.8 kg (246 lb 6.4 oz) Previous labs/tests for medication: Not applicable Please advise. patient only needs called if problem with refilling medication Thank you. Rebecca Gonzales RN documented in this encounterBluffton Hospital07-12-2022 History of Present illness Narrative* Chiki [...] 45 ALISIA Whiting PT documented in this encounterBluffton Hospital07-08-2022 Miscellaneous Notes* Telephone Encounter - Maggy [...] on driving. Please advise. documented in this encounterBluffton Hospital07-01-2022 History of Present illness Narrative* David [...] of Care: created on 01/12/22 through 03/15/22 Nelson in home exercise program. Patient will demonstrate [...] Planned: 16 Planned Treatment Interventions: Therapeutic exercise (69723);Neuromuscular re- education (58397);Gait Training (56708);Patient/Family/Caregiver Education PLAN FOR NEXT VISIT: Review HEP [...] 42 David Poon PT documented in this encounterBluffton Hospital07-01-2022 Miscellaneous Notes* Telephone Encounter - Ewa [...] Madrigal APRN.CNP * Telephone Encounter - Eva Gonzalez 01/11/2022 2:29 PM EDT Patient calling with [...] Pending consult. Please advise documented in this encounterBluffton Hospital06-29-2022 Miscellaneous Notes* Telephone Encounter - Mila Sharma - 01/10/2022 4:42 PM EDT Pt notified. If he has any further episodes he will contact PCP for further eval. Mila Sharma * Telephone Encounter - Mila Sharma - 01/10/2022 4:40 PM EDT ----- Message from Justina Monique APRN.MANAGER SIMULATION sent at 01/10/2022 11:33 AM EDT ----- Please call patient and notify him. Echocardiogram is stable. Valve replacement function is stable.No cardiac structure/function changes to explain his syncope/collapse. Thank you! documented in this encounterBluffton Hospital06-29-2022 Miscellaneous Notes* Result QuickNote - Justina Monique APRN.CNP - 01/10/2022 11:33 AM EDT Please call patient and notify him. Echocardiogram is stable. Valve replacement function is stable.No cardiac structure/function changes to explain his syncope/collapse. Thank you! documented in this encounterBluffton Hospital06-24-2022 History of Present illness Narrative* Jojo [...] REFERRING PHYSICIAN: Abdulaziz Caldera [address] [facility] [address] Accompanied by: Spouse ASSESSMENT: 76 year old [...] evaluation of folllow up after hospitalization in [facility]. he was admitted because of syncopal [...] others Since covid hit [facility] and was staying in the house by [...] Cazares Diabetes mellitus with neurological manifestation ([facility]) 09/08/2010 Diverticulosis of colon (without [...] disease, with long-term current use of insulin([facility]) 06/20/2016 Vitamin D deficiency 01/03/2022 PSH: PAST SURGICAL HISTORY Procedure Laterality Date ABDOMINAL SURGERY HX AMPUTATION METATARSAL+TOE,SINGLE Right 05/25/2018 with delayed closure on 05/28/18. Dr. Obregon at [facility] COLONOSCOPY 10/10/2021 repeat in 3 years [...] by mouth once daily. blood sugar diagnostic (Blackfoot ULTRA TEST) test strip Test blood sugar(s) [...] gait ,unsteady Cannot tandem Jojo Kaur M.D. [facility] [place] Department of Neurology January 05, 2022 Total [...] lights on at night. documented in this encounterBluffton Hospital06-21-2022 Miscellaneous Notes* Telephone Encounter - Justina Garcia LPN - 01/02/2022 8:06 AM EDT I spoke to and informed him of Justina's response to lipid panel results. Patient voiced understanding. Justina Garcia LPN * Telephone Encounter - Justina Garcia LPN - 01/02/2022 7:43 AM EDT ----- Message from Justina Monique APRN.MANAGER SIMULATION sent at 01/02/2022 7:38 AM EDT ----- Please call patient and notify him cholesterol has good control. Thank you! documented in this encounterBluffton Hospital06-20-2022 History of Present illness Narrative* Abdulaziz Caldera MD - 01/01/2022 10:20 AM EDT Chief Complaint Patient presents with: Hospital Follow Up: [facility] discharged 12/29/21 HPI Richard Roy is a 76 year old male who presents here today for Hospital Discharge Follow up. Accompanied today by his . Patient admitted to [facility] from 12/27 to 12/29 after presenting to the [facility] ED after being found slumped over his tractor at home earlier in the afteernoon. Had been working outside for unknown period of time. Had only eaten cookies and milk that day. Heat index over 100. Back to baseline at the time of evaluation by hospitalist at [facility]. Found to have leukocytosis at [facility] and elevated lactic acid level. Noted [...] echo since it was not completed at [facility]. No other changes to regimen. Patient [...] delayed closure on 05/28/18. Dr. Obregon at [facility] COLONOSCOPY 10/10/2021 repeat in 3 years [...] by mouth once daily. blood sugar diagnostic (SittercityUCH ULTRA TEST) test strip Test blood sugar(s) [...] SCRN Abdulaziz Caldera MD documented in this encounterBluffton Hospital06-20-2022 Instructions* Patient Instructions* Justina Monique APRN.MANAGER SIMULATION - 01/01/2022 9:05 AM EDT High Blood [...] risk for high blood pressure. Developed by [employer]. Published by [employer]. Copyright 2014 [employer] and/or one of its subsidiaries. All rights reserved. documented in this encounterBluffton Hospital06-20-2022 History of Present illness Narrative* Justina Monique APRN.MANAGER SIMULATION - 01/01/2022 8:57 AM EDT Chief Complaint [...] bothexplain to me he was hospitalized at [facility] for 2 days [...] LE swelling. Records have been requested from [facility]. He is unsure of what testing was completed. An echocardiogram was ordered at his last office visit with me.If this was not completed at [facility], I recommend this [...] < 100 04/01/2012 Pulmonary embolus, right ([facility]) 09/25/2013 Status post aortic valve repair 2004 Thoracic aneurysm without mention of rupture Type 2 diabetes mellitus with stage 3 chronic kidney disease, with long-term current use of insulin([facility]) 06/20/2016 PAST SURGICAL HISTORY Procedure Laterality Date ABDOMINAL SURGERY HX AMPUTATION METATARSAL+TOE,SINGLE Right 05/25/2018 with delayed closure on 05/28/18. Dr. Obregon at [facility] COLONOSCOPY 10/10/2021 repeat in 3 years [...] (DEFINITY) INTRAVENOUS DIRECTED PRN Justina Monique APRN.MANAGER SIMULATION sodium chloride 0.9 % (flush) 10 mL (BD POSIFLUSH) 10 mL INTRAVENOUS DIRECTED PRN Justina Monique APRN.MANAGER SIMULATION Review of Systems Constitutional: Negative for chills, [...] Peak Flow Date and Time PF Resp 01/01/2255 -- 18 Last 2 Encounter Wt Readings: [...] head CAD -MILD on [facility] 2004 -stress testing 2013 with [...] 01, 2022, 8:57 AM documented in this encounterBluffton Hospital06-19-2022 Note. MICRO - Microbiology PROCEDURE: Blood Culture (bacterial) [*1] SOURCE: Blood BODY SITE: COLLECTED DATE/TIME: 12/27/2021 17:43 EDT RECEIVED DATE/TIME: 12/28/2021 14:37 EDT START DATE/TIME: 12/28/2021 14:37 EDT FREE TEXT SOURCE: FINAL REPORTS Final Report [] Verified Date/Time/Personnel: 12/31/2021 07:29 EDT Staphylococcus epidermidis Isolated from anaerobe bottle only. Refer to previous culture for susceptibility. [id number] PRELIMINARY REPORTS Preliminary Report [] Verified Date/Time/Personnel: 12/30/2021 09:39 EDT Staphylococcus epidermidis Isolated from anaerobe bottle only. Refer to previous culture for susceptibility. [id number] Preliminary Report [] Verified Date/Time/Personnel: 12/28/2021 15:59 EDT Culture has been received in lab and is no growth to date. Routine cultures are held for 5 days. STAINS GSANA [] Verified Date/Time/Personnel: 12/29/2021 14:08 EDT Gram Positive Cocci in clusters Performing Locations *1: This test was performed at: [facility], [address] [place] [address], [facility] , [facility] ([place])12-31-2021 Note. MICRO - Microbiology PROCEDURE: Blood Culture [...] Locations *1: This test was performed at: [facility], [address] [place] [address], [id number] , [facility] ([place])12-27-2021 SARS-CoV-2 (COVID-19) RNA ANGELY+probe Ql (Nph)Positive 2 *ABN* (12/27/21 5:43 PM)AO Auto Urine SSComment on above:Result Comment: positive covid cvrb s. tona Evaluation + Plan note Diagnostic Tests Pending * Urinalysis 12/27/21 * Blood Culture (bacterial) 12/27/21 * Blood Culture (bacterial) 12/27/21 [facility] 06-02-2022 History of Present illness Narrative* Abdulaziz Caldera MD - 12/14/2021 3:13 PM EDT Chief Complaint Patient presents with: Covid Follow Up HPI Richard Roy is a 76 year old male who presents here today for Above Complaints.. Patient positive for COVID in the [facility] ER last week on 5/25. 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 Dr. Obregon at [facility] COLON[facility]COPY 10/10/2021 repeat in 3 years [...] by mouth once daily. blood sugar diagnostic (ImpactGamesTOUCH ULTRA TEST) test strip Test blood sugar(s) [...] detail. Abdulaziz Caldera MD documented in this encounterBluffton Hospital05-27-2022 History of Present illness Narrative* Abdulaziz [...] today for Above Complaints.. Patient evaluated at [facility] ER on 12/06 for complaint of generalized weakness, cough, and feeling off balance and developed cough which started on 12/04. Denied other COVID symptoms at that time. Lab workup in the ER was unremarkable aside from positive COVID test and INR of 3.3. UA unremarkable. CXR showed some ill defined densities in RLL which was likely 2/2 COVID infection. [place] to be well enough and discharged home [...] delayed closure on 05/28/18. Dr. Obregon at [facility] COLONOSCOPY 10/10/2021 repeat in 3 years [...] by mouth once daily. blood sugar diagnostic (SittercityUCH ULTRA TEST) test strip Test blood sugar(s) [...] these interactions. [facility]. Since his symptoms are mild, he would prefer to rest at home. Discussed risks and benefits of treatment and that he is high risk for severe infection. Red flags for re-assessment reviewed with patient in detail. I spent a total of 25 minutes on the date of the service which included preparing to see the patient, [id number] patient care, completing clinical documentation, obtaining and/or reviewing separately obtained history, performing a medically appropriate examination, counseling and educating the pat ient/family/caregiver and ordering medications, tests, or procedures. Abdulaziz Caldera MD documented in this encounterBluffton Hospital05-27-2022 Miscellaneous Notes* Telephone Encounter - Abdulaziz [...] with one of our providers or with [employer] online. * Telephone Encounter - David Martinez Pss - 12/08/2021 2:16 PM EDT Patient called stating he was at [facility] ER on 12/06. Tested positive for covid. Patient was informed tocontact the office within 5 days to inform. Please advise patient when he can be seen in office. documented in this encounterBluffton Hospital05-09-2022 Miscellaneous Notes* Telephone Encounter - Eulalia Cody - 11/20/2021 9:49 AM EDT Patient has been identified by name and date of : Yes Pending Prescriptions Disp Refills METFORMIN ER 500 MG 24 HR TABLET,EXTENDED RELEASE Sig: Take 1 tablet by mouth daily with breakfast. NUHA: No OMAR-09/06/21 Labs-08/30/21 NOV-03/07/22 RX INSTRUCTIONS: Patient aware RX will be sent to pharmacy. No need to notify patient. [facility] documented in this encounterBluffton Hospital04-11-2022 Instructions* Patient Instructions* Marcella Park PA-C - 10/23/2021 1:25 PM EDT -Recommend daily fiber supplement and plenty of fluids The following instructions are important for you related to your office visit today with the [facility]. INSTRUCTIONS FOR DIVERTICULA I recommend [...] you should contact our office immediately @ [phone] and ask to be transferred to the General Surgery department. The following instructions are important for you related to your office visit today with the [facility]. INSTRUCTIONS FOLLOWING A POLYP FOUND [...] you should contact our office immediately @ [phone] and ask to be transferred to the General Surgery department. documented in this encounterBluffton Hospital04-11-2022 History of Present illness Narrative* Marcella Park PA-C - 10/23/2021 1:09 PM EDT FOLLOW UP VISIT - ENDOSCOPY NAME: Richard Bonilla [facility] NO.: [id number] DATE OF SERVICE: 10/23/2021 : 1945 REFERRING [...] which included preparing to see the patient, [id number] patient care, completing clinical documentation, obtaining and/or reviewing separately obtained history, counseling and educating the patient/family/caregiver, communicating with other HCPs (not separately reported), independently interpreting results (not separately reported) and communicating results to the patient/family/caregiver. Marcella Park PA-C documented in this encounterBluffton Hospital03-29-2022 Nurse Note* Caroline Larkin RN - [...] answered. Caroline Larkin RN documented in this encounterBluffton Hospital03-29-2022 History and physical note * Richard [...] were not included. HISTORY AND PHYSICAL Richard Bonilla Kirill 1945 REFERRING PHYSICIAN: Abdulaziz Caldera,* CHIEF COMPLAINT: [...] of first toe of right foot ([facility]) 05/25/2018 Hyperlipidemia LDL goal < 100 04/01/2012 Pulmonary embolus, right ([facility]) 09/25/2013 Status post aortic valve repair 2005 Thoracic aneurysm without mention of rupture Type 2 diabetes mellitus with stage 3 chronic kidney disease, with long-term current use of insulin([facility]) 06/20/2016 PAST SURGICAL HISTORY PAST SURGICAL HISTORY Procedure Laterality Date AMPUTATION METATARSAL+TOE,SINGLE Right 05/25/2018 with delayed closure on 05/28/18. Dr. Obregon at [facility] COLONOSCOPY FLX DX W/COLLJ SPEC WHEN [...] by mouth once daily. blood sugar diagnostic (Blackfoot ULTRA TEST) test strip Test blood sugar(s) [...] patient was offered a surgery/procedure [facility] a [facility] facility. 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 Patient aware RX will be sent to pharmacy. No need to notify patient. Violette Call Pss documented in this encounterBluffton Hospital03-23-2022 Miscellaneous Notes* Telephone Encounter - Nelson [...] advise, Halima Diaz RN documented in this encounterBluffton Hospital02-02-2022 Miscellaneous Notes* Telephone Encounter - Garland Vicente - 08/16/2021 9:36 AM EST 10-10-2021 [facility] documented in this encounterBluffton Hospital01-13-2022 NoteHNO ID: [id number] Author: REY Burt Service: Radiology Author Type: Change Analyst Type: Progress Notes Filed: 07/27/2021 10:50 AM [...] Roy DATE: July 27, 2021 TIME: 10:49 [id number] History of Past illness Narrative* Problem Noted [...] of this encounter (statuses as of 10/04/2021) [facility] of [facility] illness Narrative* Problem [...] of this encounter (statuses as of 10/05/2021) [facility] Narrative* Problem [...] of this encounter (statuses as of 10/11/2021) [facility] Narrative* Problem [...] of this encounter (statuses as of 10/16/2021) [facility] Narrative* Problem [...] of this encounter (statuses as of 10/27/2021) [facility] Narrative* Problem [...] of this encounter (statuses as of 11/20/2021) [facility] Narrative* Problem [...] of this encounter (statuses as of 12/12/2021) [facility] Narrative* Problem [...] of this encounter (statuses as of 12/13/2021) [facility] Narrative* Problem [...] of this encounter (statuses as of 12/14/2021) [facility] Narrative* Problem [...] of this encounter (statuses as of 01/01/2022) [facility] Narrative* Problem [...] of this encounter (statuses as of 01/02/2022) [facility] Narrative* Problem [...] of this encounter (statuses as of 01/02/2022) [facility] Narrative* Problem [...] of this encounter (statuses as of 01/06/2022) [facility] Narrative* Problem [...] of this encounter (statuses as of 01/10/2022) [facility] Narrative* Problem [...] of this encounter (statuses as of 01/11/2022) [facility] Narrative* Problem [...] of this encounter (statuses as of 01/12/2022) [facility] Narrative* Problem [...] of this encounter (statuses as of 01/12/2022) [facility] Narrative* Problem [...] of this encounter (statuses as of 01/19/2022) [facility] Narrative* Problem [...] of this encounter (statuses as of 01/23/2022) [facility] Narrative* Problem [...] of this encounter (statuses as of 01/25/2022) [facility] Narrative* Problem [...] of this encounter (statuses as of 01/30/2022) [facility] Narrative* Problem [...] of this encounter (statuses as of 02/01/2022) [facility] Narrative* Problem [...] of this encounter (statuses as of 02/02/2022) [facility] Narrative* Problem [...] of this encounter (statuses as of 02/02/2022) [facility] Narrative* Problem [...] of this encounter (statuses as of 02/06/2022) [facility] Narrative* Problem [...] of this encounter (statuses as of 02/09/2022) [facility] Narrative* Problem [...] of this encounter (statuses as of 02/14/2022) [facility]arrative* Problem [...] of this encounter (statuses as of 02/26/2022) [facility] Narrative* Problem [...] of this encounter (statuses as of 03/02/2022) [facility] Narrative* Problem [...] of this encounter (statuses as of 03/05/2022) [facility] Narrative* Problem [...] of this encounter (statuses as of 03/07/2022) [facility] Narrative* Problem [...] of this encounter (statuses as of 03/08/2022) [facility] Narrative* Problem [...] of this encounter (statuses as of 03/09/2022) [facility] Narrative* Problem [...] of this encounter (statuses as of 03/12/2022) [facility]ative* Problem [...] of this encounter (statuses as of 03/16/2022) [facility] Narrative* Problem [...] of this encounter (statuses as of 03/23/2022) [facility] Narrative* Problem [...] of this encounter (statuses as of 04/03/2022) [facility] Narrative* Problem [...] of this encounter (statuses as of 04/04/2022) [facility] Narrative* Problem [...] of this encounter (statuses as of 04/06/2022) [facility] N[facility]ative* Problem [...] of this encounter (statuses as of 04/17/2022) [facility] Narrative* Problem [...] of this encounter (statuses as of 04/17/2022) [facility] Narrative* Problem [...] of this encounter (statuses as of 04/19/2022) [facility] Narrative* Problem [...] of this encounter (statuses as of 05/16/2022) [facility] [facility] Narrative* Problem [...] of this encounter (statuses as of 06/25/2022) [facility] Past illness Narrative* Problem [...] of this encounter (statuses as of 07/14/2022) [facility] Past illness Narrative* Problem [...] of this encounter (statuses as of 07/15/2022) [facility] illness Narrative* Problem [...] of this encounter (statuses as of 07/18/2022) [facility] Narrative* Problem [...] of this encounter (statuses as of 07/18/2022) [facility] Narrative* Problem [...] of this encounter (statuses as of 07/19/2022) [facility] Narrative* Problem [...] of this encounter (statuses as of 07/20/2022) [facility] Narrative* Problem [...] of this encounter (statuses as of 07/25/2022) [facility] Narrative* Problem [...] of this encounter (statuses as of 07/26/2022) [facility] Narrative* Problem [...] of this encounter (statuses as of 07/27/2022) [facility] Narrative* Problem [...] of this encounter (statuses as of 07/31/2022) [place] [id number] History of Past illness Narrative* Problem Noted [...] of this encounter (statuses as of 08/06/2022) [facility] Narrative* Problem [...] of this encounter (statuses as of 08/07/2022) [facility] Narrative* Problem [...] of this encounter (statuses as of 08/09/2022) [facility] Narrative* Problem [...] of this encounter (statuses as of 08/14/2022) [facility] Narrative* Problem [...] of this encounter (statuses as of 08/16/2022) [facility] Narrative* Problem [...] of this encounter (statuses as of 08/28/2022) [facility] Narrative* Problem [...] of this encounter (statuses as of 09/07/2022) [facility] Narrative* Problem [...] of this encounter (statuses as of 09/09/2022) [facility] Narrative* Problem [...] of this encounter (statuses as of 09/25/2022) [facility] Narrative* Problem [...] of this encounter (statuses as of 10/23/2022) [facility] Narrative* Problem [...] of this encounter (statuses as of 11/20/2022) [facility] Narrative* Problem [...] of this encounter (statuses as of 11/20/2022) [facility] Narrative* Problem [...] of this encounter (statuses as of 12/13/2022) [facility] illness Narrative* Problem [...] of this encounter (statuses as of 12/14/2022) [facility] Narrative* Problem [...] of this encounter (statuses as of 12/18/2022) [facility] Narrative* Problem [...] of this encounter (statuses as of 12/25/2022) [facility] Narrative* Problem [...] of this encounter (statuses as of 12/27/2022) [facility] illness Narrative* Problem [...] of this encounter (statuses as of 12/31/2022) [facility] illness Narrative* Problem [...] of this encounter (statuses as of 01/03/2023) [facility] Narrative* Problem [...] of this encounter (statuses as of 01/04/2023) [facility] Narrative* Problem [...] of this encounter (statuses as of 01/04/2023) [facility] Narrative* Problem [...] of this encounter (statuses as of 01/25/2023) [facility] Past illness Narrative* Problem [...] encounter (statuses as of 01/29/2023) [facility] Diagnosis Type 2 diabetes mellitus with diabetic neuropathy, with long-term current use of insulin (HCC) Status post aortic valve repair Other postprocedural status Chronic anticoagulation Long-term (current) use of anticoagulants [facility]* Diagnosis Colon cancer screening Special screening for malignant neoplasms, colon [facility] Diagnosis Colon cancer screening- Primary Special screening for malignant neoplasms, colon [facility]* Diagnosis Diverticulosis- Primary Diverticulosis of colon (without mention of hemorrhage) Cecal polyp [facility] assessment information [facility] Work Phone: Evaluation [facility]* Diagnosis COVID-19- Primary [facility] Diagnosis COVID-19- Primary [facility] Diagnosis Onset Date Resolution Status Acute dehydration acute ANTHONY (acute kidney injury) ac derek Heat exhaustion acute Hyperkalemia acute Lactic acidosis acute Leukocytosis acute [facility] Work Phone: Evaluation note* Diagnosis Hyperlipidemia with target LDL less than 100- Primary Other and unspecified hyperlipidemia Primary hypertension Unspecified essential hypertension Thoracic aortic aneurysm without rupture (HCC) Thoracic aneurysm without mention of rupture 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 Syncope, unspecified syncope type Obesity, Class II, BMI 35-39.9 Obesity, unspecified [facility]* Diagnosis Syncope and collapse- Primary Altered mental status, unspecified altered mental status type Urinary incontinence, unspecified type Benign prostatic hyperplasia with nocturia Nocturia Vitamin D deficiency, unspecified Wound of left lower extremity, initial encounter Encounter for screening for malignant neoplasm of prostate Special screening for malignant neoplasm of prostate [facility] Diagnosis Abnormality of gait due to impairment of balance- Primary Altered mental status, unspecified altered mental status type [facility]* Diagnosis Chronic anticoagulation Long-term (current) use of anticoagulants Thoracic aortic aneurysm without rupture (HCC) Thoracic aneurysm without mention of rupture Status post aortic valve repair Other postprocedural status [facility] Diagnosis Type 2 diabetes mellitus with diabetic neuropathy, with long-term current use of insulin (HCC)- Primary [facility]* Diagnosis Abnormality of gait due to impairment of balance- Primary [facility] Diagnosis Abnormality of gait due to impairment of balance- Primary [facility] Diagnosis Vitamin D deficiency Unspecified vitamin D deficiency [facility] Diagnosis Abnormality of gait due to impairment of balance- Primary [facility]* Diagnosis Vitamin D deficiency Unspecified vitamin D deficiency [facility]* Diagnosis Type 2 diabetes mellitus with stage 3 chronic kidney disease, with long-term current use of insulin ([facility]) [facility] Diagnosis Abnormality of gait due to impairment of balance- Primary [facility]* Diagnosis Type 2 diabetes mellitus with diabetic neuropathy, with long-term current use of insulin ([facility]) [facility] Diagnosis Abnormality of gait due to impairment of balance- Primary [facility] Diagnosis Abnormality of gait due to impairment of balance- Primary [facility] Diagnosis Onset Date Resolution Status Acute dehydration resolved Heat exhaustion resolved [facility] Work Phone: Evaluation note* Diagnosis Abnormality of gait due to impairment of balance- Primary [facility] Diagnosis Status post aortic valve repair Other postprocedural status Chronic anticoagulation Long-term (current) use of anticoagulants [facility] Diagnosis Generalized weakness- Primary Other malaise and fatigue Supratherapeutic INR Abnormal coagulation profile ANTHONY (acute kidney injury) ([facility]) Acute kidney failure, unspecified [facility] Diagnosis Abnormality of gait due to impairment of balance- Primary [facility] Diagnosis Abnormality of gait due to impairment of balance- Primary [facility]* Diagnosis Urinary incontinence, unspecified type [facility] Diagnosis Abnormality of gait due to impairment of balance- Primary [facility]* Diagnosis Onychomycosis- Primary Dermatophytosis of nail Pain in toe of left foot Pain in limb Amputated toe of right foot (HCC) Diabetic polyneuropathy associated with type 2 diabetes mellitus ([facility]) [facility] Diagnosis Generalized weakness- Primary Other malaise and fatigue Encounter for immunization Need for other specified prophylactic vaccination against single bacterial disease Mild depression Depressive disorder, not elsewhere classified [facility] Diagnosis Generalized anxiety disorder- Primary Polyneuropathy Unspecified hereditary and idiopathic peripheral neuropathy [facility] Urinary incontinence, unspecified type documented in this encounter [facility] note* Diagnosis Onset Date Resolution Status History of pulmonary embolism acute History of thoracic aortic aneurysm repair acute NSTEMI, initial episode of care acute HTN (hypertension) [facility] Work Phone: Evaluation note* Diagnosis Dizziness- Primary Dizziness and giddiness Chronic frontal sinusitis documented in this encounter [facility] note* Diagnosis Type 2 diabetes mellitus with diabetic neuropathy, with long-term current use of insulin ([facility])- Primary Diabetic polyneuropathy associated with type 2 diabetes mellitus ([facility]) NSTEMI (non-ST elevated myocardial infarction) ([facility]) Acute myocardial infarction, subendocardial infarction, episode of care unspecified Essential hypertension, benign Hyperlipidemia with target LDL less than 100 Other and unspecified hyperlipidemia Status post aortic valve repair Other postprocedural status Chronic anticoagulation Long-term (current) use of anticoagulants Urinary incontinence, unspecified type Benign prostatic hyperplasia with weak urinary stream Acquired absence of right great toe ([facility]) Lower limb amputation, great toe Type 2 diabetes mellitus with stage 3a chronic kidney disease, with long-term current use of insulin ([facility]) 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, macular edema presence unspecified ([facility]) documented in this encounter [facility] note* Diagnosis Driving safety issue- Primary Other specified personal history presenting hazards to health documented in this encounter [facility] note* Diagnosis Onychomycosis- Primary Dermatophytosis of nail Pain in toe of left foot Pain in limb Amputated toe of right foot ([facility]) Diabetic polyneuropathy associated with type 2 diabetes mellitus ([facility]) documented in this encounter [facility] note* Diagnosis Spinal stenosis, lumbar region, without neurogenic claudication- Primary Primary osteoarthritis of both knees Primary localized osteoarthrosis, lower leg [facility]* Diagnosis Spinal stenosis, lumbar region, without neurogenic claudication- Primary Primary osteoarthritis of both knees Primary localized osteoarthrosis, lower leg [facility]* Diagnosis Spinal stenosis, lumbar region, without neurogenic claudication- Primary Primary osteoarthritis of both knees Primary localized osteoarthrosis, lower leg [facility]* Diagnosis Spinal stenosis, lumbar region, without neurogenic claudication- Primary Primary osteoarthritis of both knees Primary localized osteoarthrosis, lower leg [facility]* Diagnosis Spinal stenosis, lumbar region, without neurogenic claudication- Primary Primary osteoarthritis of both knees Primary localized osteoarthrosis, lower leg [facility]* Diagnosis Spinal stenosis, lumbar region, without neurogenic claudication- Primary Primary osteoarthritis of both knees Primary localized osteoarthrosis, lower leg [facility]* Diagnosis Onset Date Resolution Status Confusion acute Weakness acute [facility] Work Phone: Evaluation note* Diagnosis Onset Date Resolution Status Confusion acute Weakness acute ABLA (acute blood loss anemia) acute Acute encephalopathy acute Supratherapeutic INR acute Syncope acute Upper gastrointestinal bleeding acute Warfarin-induced coagulopathy acute [facility] Work Phone: Evaluation note* Diagnosis Onset [...] acute Warfarin-induced coagulopathy acute HTN (hypertension) chronic [facility] Work Phone: Evaluation note* Diagnosis Onset [...] type II acute Sick sinus syndrome acute [facility] Work Phone: Evaluation note* Diagnosis Onset [...] (INR) acute UTI (urinary tract infection) acute [facility] Work Phone: Evaluation note* Diagnosis Onset [...] UTI (urinary tract infection) acute Weakness acute [facility] Work Phone: Evaluation note* Diagnosis Onset [...] degree AV block, Mobitz type II chronic [facility] Work Phone: Evaluation note* Diagnosis Onset [...] Second degree AV block, Mobitz type II [facility] Work Phone: Evaluation note* Diagnosis Onset [...] Second degree AV block, Mobitz type II [facility] Work Phone: Evaluation note* Diagnosis Onset Date Resolution Status Presence of cardiac pacemaker acute Syncope acute Second degree AV block, Mobitz type II chronic Sick sinus syndrome chronic Atrial fibrillation acute HLD (hyperlipidemia) acute Presence of cardiac pacemaker acute HTN (hypertension) chronic Second degree AV block, Mobitz type II [facility] Work Phone: Evaluation note* Diagnosis Onset Date Resolution Status Atrial fibrillation acute HLD (hyperlipidemia) acute Presence of cardiac pacemaker acute HTN (hypertension) chronic Second degree AV block, Mobitz type II [facility] Work Phone: History and physical note Author Dr. Aly [facility] January 04, 2023 4:32pm Note Date/Time January 04, 2023 4:12 pm [facility] Medical Records Department [address] [place] [address] H&P Exam - Hospitalist 01/04/23 1607 MR#: [id number] Acct: [id number] Name: RICHARD ROY Rep #:[id number] : 1945 77 From: Karen Aly MD PCP: Dr. Luis Caldera MD Status :ADM LUIS ANGEL Location: [place] [address] HPI - General General Date of Admission: 01/04/23 Date of Service: 01/04/23 Chief Complaint: Confusion, falls. HPI Narrative The patient is a 77 y/o M w/ PMHx: AAA s/p repair, Hx COVID-19, Hx GI bleed, Valvular heart disease s/p AVR, HTN, HLD, VTE w/ Hx DVT/PE, Diabetes mellitus type II, Obesity who presents to the [facility] ED on 01/04/23 with history of [...] intracranial abnormality, right maxillary sinusitis. [facility] Medical History Amputation of right [...] 78.3 H, Lymph % (Auto) 12.8 L, [place] % (Auto) 5.9, Eos % (Auto) 1.7, [...] Sl. Cloudy, Urine pH 6.0, Ur Specific [place] 1.020, Urine Protein 15 H, Urine Glucose [...] Signed: Manan Franklin MD at 13:17 EDT Reading Location ID and State: [facility] / [place] , Service support , Assessment & Plan Assessment/Plan (1) Confusion: PLAN: Plan The patient is a 77 y/o M w/ PMHx: AAA s/p repair, Hx COVID-19, Hx GI bleed, Valvular heart disease s/p AVR, HTN, HLD, VTE w/ Hx DVT/PE, Diabetes mellitus type II, Obesity who presents to the [facility] ED on 01/04/23 with history of [...] 60 minutes. Charges/Coding Visit Charges Inpatient E&M: 76994 Init Hosp L2 01/04/23 1632 <Electronically signed by Karen Aly MD> Cosigner Signature (if applicable): CC: Dr. Karen Aly MD; Dr. Luis Caldera MD~ Signed [facility] Work Phone: Hospital course Narrative No data available for this section [facility] Discharge instructions No data available for this section [facility] Discharge instructions Additional Instructions Work-up revealed [...] days of antibiotics please return for repeat [facility] Work Phone: Hospital Discharge instructionsAdditional Instructions Blood work did not show any acute findings here today. X-ray did not show any evidence of osteomyelitis of his foot. His head CT did not show any acute findings either. Return with worsening symptoms or any concerns.[facility] Work Phone: Progress note No data available for this section [facility] Progress note Author Liu Hackett [facility] January 26, 2023 3:50pm Note Date/Time January 26, 2023 3:50 pm [facility] Medical Records Department [address] [place] [address] Progress Note - GI 01/26/23 1549 MR#: [id number] Acct: [id number] Name: RICHARD ROY Rep #:[id number] : 1945 77 From: Liu Hackett DO PCP: Dr. Luis Caldera MD Status :ADM IN Location: [place] [address] Subjective Subjective Patient is doing well today. [...] 78.4 H, Lymph % (Auto) 8.1 L, [place] % (Auto) 9.6, Eos % (Auto) 1.6, [...] Heart rate in 50s.. Discussed with the clean energy policy analyst. No chest pain or tightness. Physical exam [...] ensure healing. Charges/Coding Visit Charges Inpatient E&M: 45422 Subs Hosp L3 01/26/23 1550 <Electronically signed by Liu Friend DO> Cosigner Signature (if applicable): CC: ~ Signed [facility] Work Phone: Progress note Author Smith Leija [facility] February 13, 2023 3:58pm Note Date/Time February 13, 2023 3:5 8pm [facility] Medical Records Department [facility] [address] [place] [address] Progress Note - Infect Disease 02/13/23 1557 MR#: [id number] Acct: [id number] Name: RICHARD ROY Rep #:[id number] : 1945 77 From: Smith mcdowell MD PCP: Dr. Luis Caldera MD Status :ADM IN Location: [facility] [id number] Physical Exam Narrative Feeling better, no fever, [...] Cosigner Signature (if applicable): CC: ~ Signed [facility] Work Phone: Reason for referral (narrative)* Outpatient Procedure (Routine) - Closed Specialty Diagnoses / Procedures Referred By Linn carrillo Referred To Contact [facility] Diagnoses Colon cancer screening Procedures COLONOSCOPY SCREENING COLONOSCOPY FLX DX W/COLLJ SPEC WHEN PFRMD Marcella Park PA-C [address] [place] [address] [facility] [address] [place] [address] Referral ID Status Reason Start Date Expiration Date V isits Requested Visits Authorized [id number] Closed Auto-Generate d Referral 08/16/2021 08/16/2022 1 1 [facility] for referral (narrative)* Outpatient Procedure (Routine) - Closed Specialty Diagnoses / Procedures Referred By Contcarlos t Referred To Contact [facility] Diagnoses Colon cancer screening Procedures COLONOSCOPY SCREENING COLONOSCOPY FLX DX W/COLLJ SPEC WHEN Marcella Alatorre PA-C [address] [place] [address] [facility] [address] [place] [id number] Referral ID Status Reason Start Date Expiration Date V isits Requested Visits Authorized [id number] Closed Auto-Generate d Referral 08/16/2021 08/16/2022 1 1 [facility] for referral (narrative)No reason for referral information availableWWilson Memorial Hospital Work Phone: Reason for visit Narrative* Outpatient Procedure (Routine) - Closed Specialty Diagnoses / Procedures Referred By Contac t Referred To Contact [facility] Diagnoses Colon cancer screening Procedures COLONOSCOPY SCREENING COLONOSCOPY FLX DX W/COLLJ SPEC WHEN Marcella Alatorre PA-C [address] [place] [address] [facility] [address] [place] [id number] Referral ID Status Reason Start Date Expiration Date V isits Requested Visits Authorized [id number] Closed Auto-Generate d Referral 08/16/2021 08/16/2022 1 1 [facility] for visit Narrative* Outpatient Procedure (Routine) - Closed Specialty Diagnoses / Procedures Referred By Contac t Ref[facility] Diagnoses Chronic anticoagulation Thoracic aortic aneurysm without rupture (HCC) Status post aortic valve repair Procedures ECHO TTE W/DOPPLER, COMPLETE Justina Monique E, FRONT DESK PERSON.MANAGER SIMULATION [address] [place] [address] [facility] [address] [place] [id number] Referral ID Status Reason Start Date Expiration Date V isits Requested Visits Authorized [id number] Closed Auto-Generate d Referral 07/03/2021 07/03/2022 1 1 [facility] Advance Directives No Advanced Directives Records FoundDocuments on File Type Date Recorded Patient Bods Developer Expl anation Advance Directive(s) 09/12/2021 7:14 AM Documents on File Type Date Recorded Patient Bods Developer Expl anation Advance Directive(s) 09/12/2021 7:14 AM Advance Directive Response Recorded Date/ Time Advance Directives Yes September 16 11:11pm Living Will No December 06, 2021 1 1:07pm Power of Haul Truck Driver No December 06, 2021 11:07pm Advance Directive Response Recorded Date/ Time Name of Medical Power of Haul Truck Driver Gena Roy December 27, 2021 10:36pm Advance Directives Yes September 16 11:11pm Living Will Yes December 27, 2021 10:36pm Power of Haul Truck Driver Yes December 27 10:36pm Advance Directive Response Recorded Date/ Time Name of Medical Power of Haul Truck Driver Gena Roy December 27, 2021 10:36pm Name of Medical Power of Haul Truck Driver TEDDY ROY (SON ) March 02, 2022 2:34pm Advance Directives Yes September 16 11:11pm Living Will Yes March 02 2:34pm Power of Haul Truck Driver Yes March 02, 2 022 2:34pm Advance Directive Response Recorded Date/ Time Name of Medical Power of Haul Truck Driver teddy roy July 10, 2022 3:06am Advance Directives Yes September 16 10:11pm Living Will Yes July 10, 2 022 3:06am Power of Haul Truck Driver Yes July 10, 2022 3:06am Advance Directive Response Recorded Date/ Time Name of Medical Power of Haul Truck Driver ? January 04, 2023 11:15am Advance Directives Yes September 16 11:11pm Living Will Yes January 04, 2023 11:15am Power of Haul Truck Driver Yes January 04 11:15am Advance Directive Response Recorded Date/ Time Name of Medical Power of Haul Truck Driver Ciarra Regant (spouse), Teddy Roy (son) January 04, 2023 6:23pm Name of Medical Power of Haul Truck Driver GENA ROY January 21, 2023 8:26am Advance Directives Yes September 16 11:11pm Living Will Yes January 21, 2023 8:26am Power of Haul Truck Driver Yes January 21 8:26am Advance Directive Response Recorded Date/ Time Name of Medical Power of Haul Truck Driver Ciarra Roy (spouse), Teddy Roy (son) January 04, 2023 6:23pm Name of Medical Power of Haul Truck Driver Ciarra Roy January 21, 2023 12:23pm Advance Directives Yes September 16 11:11pm Living Will Yes January 21, 2023 12:23pm Power of Haul Truck Driver Yes January 21 12:23pm Advance Directive Response Recorded Date/ Time Name of Medical Power of Haul Truck Driver Ciarra Roy (spouse), Teddy Roy (son) January 04, 2023 6:23pm Name of Medical Power of Haul Truck Driver Ciarra Roy (spouse) January 27, 2023 6:04pm Advance Directives Yes September 16 11:11pm Living Will Yes January 27, 2023 6:04pm Power of Haul Truck Driver Yes January 27 6:04pm Name of Medical Power of Haul Truck Driver Ciarra Roy January 21, 2023 12:23pm Advance Directive Response Recorded Date/ Time Name of Medical Power of Haul Truck Driver Ciarra Roy (spouse), Teddy Roy (son) January 04, 2023 6:23pm Name of Medical Power of Haul Truck Driver Ciarra Roy January 27, 2023 9:40pm Name of Medical Power of Haul Truck Driver Ciarra Robison, February 10, 2023 9:27pm Advance Directives Yes September 16 11:11pm Living Will Yes February 10, 2023 9:27pm Power of Haul Truck Driver Yes February 10 9:27pm Name of Medical Power of Haul Truck Driver Ciarra Roy January 21, 2023 12:23pm Advance Directive Response Recorded Date/ Time Name of Medical Power of Haul Truck Driver Ciarra Roy (spouse), Teddy Roy (son) January 04, 2023 6:23pm Name of Medical Power of Haul Truck Driver Ciarra Roy January 27, 2023 9:40pm Name of Medical Power of Haul Truck Driver Ciarra Robison, February 10, 2023 9:27pm Name of Medical Power of Haul Truck Driver Ciarra MEEKS, February 11, 2023 4:25pm Advance Directives Yes September 16 11:11pm Living Will Yes February 11, 2023 4:25pm Power of Haul Truck Driver Yes February 11 4:25pm Name of Medical Power of Haul Truck Driver Ciarra Roy January 21, 2023 12:23pm Advance Directive Response Recorded Date/ Time Name of Medical Power of Haul Truck Driver Ciarra Roy (spouse), Teddy Roy (son) January 04, 2023 6:23pm Name of Medical Power of Haul Truck Driver Ciarra Roy January 27, 2023 9:40pm Name of Medical Power of Haul Truck Driver Ciarra Robison, February 10, 2023 9:27pm Name of Medical Power of Haul Truck Driver Arthur MEEKSel, February 11, 2023 8:40pm Advance Directives Yes September 16 11:11pm Living Will Yes February 11, 2023 8:40pm Power of Haul Truck Driver Yes February 11 8:40pm Name of Medical Power of Haul Truck Driver Ciarra Roy January 21, 2023 12:23pm Advance Directive Response Recorded Date/ Time Name of Medical Power of Haul Truck Driver Ciarra Roy January 27, 2023 9:40pm Name of Medical Power of Haul Truck Driver Ciarra Robison, February 10, 2023 9:27pm Name of Medical Power of Haul Truck Driver POA, Ciarra, w david February 11, 2023 8:40pm Advance Directives Yes September 16 11:11pm Living Will Yes February 11, 2023 8:40pm Power of Haul Truck Driver Yes February 11 8:40pm Name of Medical Power of Haul Truck Driver Ciarra Roy January 21, 2023 12:23pm Advance Directive Response Recorded Date/ Time Name of Medical Power of Haul Truck Driver Ciarra Roy January 27, 2023 8:40pm Name of Medical Power of Haul Truck Driver Ciarra Robison, February 10, 2023 8:27pm Name of Medical Power of Haul Truck Driver POA, Ciarra, w david February 11, 2023 7:40pm Advance Directives Yes September 16 10:11pm Living Will Yes February 11, 2023 7:40pm Power of Haul Truck Driver Yes February 11 7:40pm Name of Medical Power of Haul Truck Driver Ciarra Roy January 21, 2023 11:23am Advance Directive Response Recorded Date/ Time Name of Medical Power of Haul Truck Driver Ciarra Roy January 27, 2023 8:40pm Name of Medical Power of Haul Truck Driver Ciarra Robison, February 10, 2023 8:27pm Name of Medical Power of Haul Truck Driver Ciarra MEEKS w david February 11, 2023 7:40pm Advance Directives Yes September 16 10:11pm Living Will No May 30 023 11:36am Power of Haul Truck Driver No May 30, 2023 11:36am Advance Directive Response Recorded Date/ Time Advance Directives Yes September 16 10:11pm Living Will No May 30 023 11:36am Power of Haul Truck Driver No May 30, 2023 11:36am Advance Directive Response Recorded Date/ Time Advance Directives Yes September 16 11:11pm Living Will No May 30 12:36pm Power of Haul Truck Driver No May 30, 2023 12:36pm Advance Directive Response Recorded Date/ Time Advance Directives Yes September 16 11:11pm Advance Directive Response Recorded Date/ Time Do you have a Healthcare Power of Haul Truck Driver? Yes February 02, 2025 7:49pm Advance Directives Yes September 16 11:11pm Advance Directive Response Recorded Date/ Time Do you have a Healthcare Power of Haul Truck Driver? Yes February 03, 2025 1:28am Advance Directives Yes September 16 11:11pm Advance Directive Response Recorded Date/ Time Do you have a Healthcare Power of Haul Truck Driver? Yes February 03, 2025 1:28am Do you have a Healthcare Power of Haul Truck Driver? Yes February 27, 2025 6:33pm Advance Directives [...] day post implant check RECURRENT GI BLEED [facility] LABWORK AMS BACTEREMIA, CYSTITIS Urinary tract infection [...] day post implant check RECURRENT GI BLEED [facility]DC LABWORK AMS LAB WORK BACTEREMIA, CYSTITIS Urinary tract infection BACTEREMIA, CYSTITIS BACTEREMIA, CYSTITIS LAB WORK LAB WORK 1 wk wound check LABWORK LABWORK LABWORK LABWORK LABWORK FDC LABWORK LABWORK 6 wk post PPM implant [...] day post implant check RECURRENT GI BLEED FDC LABWORK AMS LAB WORK BACTEREMIA, CYSTITIS Urinary tract infection BACTEREMIA, CYSTITIS BACTEREMIA, CYSTITIS LAB WORK LAB WORK 1 wk wound check LABWORK LABWORK LABWORK LABWORK LABWORK FDC LABWORK LABWORK 6 wk post PPM implant f/u / KR @ 2p S/P PACER IMPLANT 6 wk fu / NAA @ 1:30 LABWORK FDC LAB WORK FDC LABWORK [facility]DC LAB WORK Reason for Visit Confusion Weakness [...] day post implant check RECURRENT GI BLEED FDC LABWORK AMS LAB WORK BACTEREMIA, CYSTITIS Urinary tract infection BACTEREMIA, CYSTITIS BACTEREMIA, CYSTITIS LAB WORK LAB WORK 1 wk wound check LABWORK LABWORK LABWORK LABWORK LABWORK FDC LABWORK LABWORK 6 wk post PPM implant f/u / KR @ 2p S/P PACER IMPLANT 6 wk fu / NAA @ 1:30 LABWORK FDC LAB WORK FDC LABWORK FDC LAB WORK FDC LAB WORK Reason for Visit Confusion Weakness [...] day post implant check RECURRENT GI BLEED FDC LABWORK AMS LAB WORK BACTEREMIA, CYSTITIS Urinary tract infection BACTEREMIA, CYSTITIS BACTEREMIA, CYSTITIS LAB WORK LAB WORK 1 wk wound check LABWORK LABWORK LABWORK LABWORK LABWORK FDC LABWORK LABWORK 6 wk post PPM implant f/u / KR @ 2p S/P PACER IMPLANT 6 wk fu / NAA @ 1:30 LABWORK FDC LAB WORK FDC LABWORK FDC LAB WORK FDC LAB WORK LABWORK Reason for Visit Acute [...] day post implant check RECURRENT GI BLEED FDC LABWORK AMS LAB WORK BACTEREMIA, CYSTITIS Urinary tract infection BACTEREMIA, CYSTITIS BACTEREMIA, CYSTITIS LAB WORK LAB WORK 1 wk wound check LABWORK LABWORK LABWORK LABWORK LABWORK FDC LABWORK LABWORK 6 wk post PPM implant f/u / KR @ 2p S/P PACER IMPLANT 6 wk fu / NAA @ 1:30 LABWORK FDC LAB WORK FDC LABWORK FDC LAB WORK FDC LAB WORK LABWORK LABWORK Reason for Visit [...] day post implant check RECURRENT GI BLEED FDC LABWORK AMS LAB WORK BACTEREMIA, CYSTITIS Urinary tract infection BACTEREMIA, CYSTITIS BACTEREMIA, CYSTITIS LAB WORK LAB WORK 1 wk wound check LABWORK LABWORK LABWORK LABWORK LABWORK FDC LABWORK LABWORK 6 wk post PPM implant f/u / KR @ 2p S/P PACER IMPLANT 6 wk fu / NAA @ 1:30 LABWORK FDC LAB WORK FDC LABWORK FDC LAB WORK FDC LAB WORK LABWORK LABWORK [facility]DC LAB WORK Reason for Visit HTN (hypertension) [...] day post implant check RECURRENT GI BLEED FDC LABWORK AMS LAB WORK BACTEREMIA, CYSTITIS Urinary tract infection BACTEREMIA, CYSTITIS BACTEREMIA, CYSTITIS LAB WORK LAB WORK 1 wk wound check LABWORK LABWORK LABWORK LABWORK LABWORK FDC LABWORK LABWORK 6 wk post PPM implant f/u / KR @ 2p S/P PACER IMPLANT 6 wk fu / NAA @ 1:30 LABWORK FDC LAB WORK FDC LABWORK FDC LAB WORK FDC LAB WORK LABWORK LABWORK [facility]DC LAB WORK Reason for Visit HTN (hypertension) [...] II Chief Complaint LABWORK LABWORK LABWORK LABWORK FDC LABWORK LABWORK 6 wk post PPM implant f/u / KR @ 2p S/P PACER IMPLANT 6 wk fu / NAA @ 1:30 LABWORK FDC LAB WORK FDC LABWORK FDC LAB WORK FDC LAB WORK LABWORK LABWORK FDC LAB WORK LABWORK Reason for Visit Presence of cardiac pacemaker Syncope Second degree AV block, Mobitz type II Sick sinus syndrome Atrial fibrillation HLD (hyperlipidemia) Presence of cardiac pacemaker HTN (hypertension) Second degree AV block, Mobitz type II Chief Complaint LABWORK FDC LABWORK LABWORK 6 wk post PPM implant f/u / KR @ 2p S/P PACER IMPLANT 6 wk fu / NAA @ 1:30 LABWORK FDC LAB WORK FDC LABWORK FDC LAB WORK FDC LAB WORK LABWORK LABWORK FDC LAB WORK FDC LAB WORK LABWORK LABWORK Reason for Visit Presence of cardiac pacemaker Syncope Second degree AV block, Mobitz type II Sick sinus syndrome Atrial fibrillation HLD (hyperlipidemia) Presence of cardiac pacemaker HTN (hypertension) Second degree AV block, Mobitz type II Chief Complaint FDC LABWORK LABWORK 6 wk post PPM implant f/u / KR @ 2p S/P PACER IMPLANT 6 wk fu / NAA @ 1:30 LABWORK FDC LAB WORK FDC LABWORK FDC LAB WORK FDC LAB WORK LABWORK LABWORK FDC LAB WORK FDC LAB WORK LABWORK FDC LAB WORK LABWORK Reason for Visit Presence of cardiac pacemaker Syncope Second degree AV block, Mobitz type II Sick sinus syndrome Atrial fibrillation HLD (hyperlipidemia) Presence of cardiac pacemaker HTN (hypertension) Second degree AV block, Mobitz type II Chief Complaint LABWORK 6 wk post PPM implant f/u / KR @ 2p S/P PACER IMPLANT 6 wk fu / NAA @ 1:30 LABWORK FDC LAB WORK FDC LABWORK FDC LAB WORK FDC LAB WORK LABWORK LABWORK FDC LAB WORK FDC LAB WORK LABWORK FDC LAB WORK LABWORK LABWORK Reason for Visit Presence of cardiac pacemaker Syncope Second degree AV block, Mobitz type II Sick sinus syndrome Atrial fibrillation HLD (hyperlipidemia) Presence of cardiac pacemaker HTN (hypertension) Second degree AV block, Mobitz type II Chief Complaint LABWORK 6 wk post PPM implant f/u / KR @ 2p S/P PACER IMPLANT 6 wk fu / NAA @ 1:30 LABWORK FDC LAB WORK FDC LABWORK FDC LAB WORK FDC LAB WORK LABWORK LABWORK FDC LAB WORK FDC LAB WORK LABWORK FDC LAB WORK FDC LABWORK LABWORK LABWORK Reason for Visit Presence of cardiac pacemaker Syncope Second degree AV block, Mobitz type II Sick sinus syndrome Atrial fibrillation HLD (hyperlipidemia) Presence of cardiac pacemaker HTN (hypertension) Second degree AV block, Mobitz type II Chief Complaint 6 wk post PPM implan t f/u / KR @ 2p S/P PACER IMPLANT 6 wk fu / NAA @ 1:30 LABWORK FDC LAB WORK FDC LABWORK FDC LAB WORK FDC LAB WORK LABWORK LABWORK FDC LAB WORK FDC LAB WORK LABWORK FDC LAB WORK FDC LABWORK LABWORK FDC LAB WORK LABWORK Reason for Visit Presence of cardiac pacemaker Syncope Second degree AV block, Mobitz type II Sick sinus syndrome Atrial fibrillation HLD (hyperlipidemia) Presence of cardiac pacemaker HTN (hypertension) Second degree AV block, Mobitz type II Chief Complaint LABWORK FDC LAB WORK FDC LABWORK FDC LAB WORK FDC LAB WORK LABWORK LABWORK FDC LAB WORK FDC LAB WORK LABWORK FDC LAB WORK FDC LABWORK LABWORK FDC LAB WORK LABWORK LABWORK LABWORK Chief Complaint FDC LAB WOR K FDC LABWORK FDC LAB WORK FDC LAB WORK LABWORK LABWORK FDC LAB WORK FDC LAB WORK LABWORK FDC LAB WORK FDC LABWORK LABWORK FDC LAB WORK LABWORK LABWORK LABWORK LABWORK Chief Complaint FDC LAB WOR K FDC LAB WORK LABWORK LABWORK FDC LAB WORK FDC LAB WORK LABWORK FDC LAB WORK FDC LABWORK LABWORK FDC LAB WORK LABWORK FDC LAB WORK LABWORK LABWORK LABWORK Chief Complaint FDC LAB WOR K LABWORK LABWORK FDC LAB WORK FDC LAB WORK LABWORK FDC LAB WORK FDC LABWORK LABWORK FDC LAB WORK LABWORK FDC LAB WORK LABWORK LABWORK LABWORK LABWORK Chief Complaint FDC LAB WOR K LABWORK LABWORK FDC LAB WORK FDC LAB WORK LABWORK FDC LAB WORK FDC LABWORK LABWORK FDC LAB WORK LABWORK FDC LAB WORK LABWORK LABWORK LABWORK FDC LABWORK LABWORK Chief Complaint LABWORK LABWORK FDC LAB WORK FDC LAB WORK LABWORK FDC LAB WORK FDC LABWORK LABWORK FDC LAB WORK LABWORK FDC LAB WORK LABWORK LABWORK LABWORK FDC LABWORK LABWORK LABWORK Chief Complaint LABWORK FDC LAB WORK FDC LAB WORK LABWORK FDC LAB WORK FDC LABWORK LABWORK FDC LAB WORK LABWORK FDC LAB WORK LABWORK LABWORK LABWORK FDC LABWORK LABWORK LABWORK LABWORK Chief Complaint FDC LAB WOR K FDC LAB WORK LABWORK FDC LAB WORK FDC LABWORK LABWORK FDC LAB WORK LABWORK FDC LAB WORK LABWORK LABWORK LABWORK FDC LABWORK LABWORK LABWORK LABWORK LABWORK Chief Complaint FDC LAB WOR K LABWORK FDC LAB WORK FDC LABWORK LABWORK FDC LAB WORK LABWORK FDC LAB WORK LABWORK LABWORK LABWORK FDC LABWORK LABWORK LABWORK LABWORK LABWORK LABWORK Chief Complaint FDC LAB WOR K LABWORK FDC LAB WORK FDC LABWORK LABWORK FDC LAB WORK LABWORK FDC LAB WORK LABWORK LABWORK LABWORK FDC LABWORK LABWORK LABWORK LABWORK LABWORK LABWORK LABWORK Chief Complaint FDC LAB WOR K LABWORK FDC LAB WORK FDC LABWORK LABWORK FDC LAB WORK LABWORK FDC LAB WORK LABWORK LABWORK LABWORK FDC LABWORK LABWORK LABWORK LABWORK LABWORK LABWORK LABWORK LABWORK Chief Complaint FDC LAB WOR K LABWORK FDC LAB WORK FDC LABWORK LABWORK FDC LAB WORK LABWORK FDC LAB WORK LABWORK LABWORK LABWORK FDC LABWORK LABWORK LABWORK LABWORK LABWORK LABWORK LABWORK FDC LAB WORK LABWORK Chief Complaint FDC LAB WOR K LABWORK FDC LAB WORK FDC LABWORK LABWORK FDC LAB WORK LABWORK FDC LAB WORK LABWORK LABWORK LABWORK FDC LABWORK LABWORK LABWORK LABWORK LABWORK LABWORK LABWORK FDC LAB WORK LABWORK LABWORK 6 M Chief Complaint FDC LAB WOR K FDC LABWORK LABWORK FDC LAB WORK LABWORK FDC LAB WORK LABWORK LABWORK LABWORK FDC LABWORK LABWORK LABWORK LABWORK LABWORK LABWORK LABWORK FDC LAB WORK LABWORK LABWORK LABWORK 6 M FU Reason for Visit Atrial fibrillation HLD (hyperlipidemia) Presence of cardiac pacemaker HTN (hypertension) Second degree AV block, Mobitz type II Chief Complaint FDC LABWORK LABWORK FDC LAB WORK LABWORK FDC LAB WORK LABWORK LABWORK LABWORK FDC LABWORK LABWORK LABWORK LABWORK LABWORK LABWORK LABWORK FDC LAB WORK LABWORK LABWORK LABWORK 6 M FDC LAB WORK Reason for Visit Atrial fibrillation HLD (hyperlipidemia) Presence of cardiac pacemaker HTN (hypertension) Second degree AV block, Mobitz type II Chief Complaint FDC LAB WOR K LABWORK FDC LAB WORK LABWORK LABWORK LABWORK FDC LABWORK LABWORK LABWORK LABWORK LABWORK LABWORK LABWORK FDC LAB WORK LABWORK LABWORK LABWORK 6 M LABWORK FDC LAB WORK Reason for Visit Atrial fibrillation HLD (hyperlipidemia) Presence of cardiac pacemaker HTN (hypertension) Second degree AV block, Mobitz type II Chief Complaint LABWORK LABWORK FDC LABWORK LABWORK 6 wk post PPM implant f/u / KR @ 2p S/P PACER IMPLANT 6 wk fu / NAA @ 1:30 LABWORK FDC LAB WORK FDC LABWORK FDC LAB WORK FDC LAB WORK LABWORK LABWORK FDC LAB WORK FDC LAB WORK LABWORK Reason for Visit Presence of cardiac pacemaker Syncope Second degree AV block, Mobitz type II Sick sinus syndrome Atrial fibrillation HLD (hyperlipidemia) Presence of cardiac pacemaker HTN (hypertension) Second degree AV block, Mobitz type II Chief Complaint Admit Date FDC LAB WORK July 01 4:00am FDC LAB WORK July 07 5:00am LABWORK July 27, 2024 5 :00am FDC LAB WORK August 04, 2024 5:00am FDC LAB WORK September 29, 2024 4 :00am [...] 2024 1:0 9pm Chief Complaint Admit Date FDC LAB WORK July 01 4:00am FDC LAB WORK July 07 5:00am LABWORK July 27, 2024 5 :00am FDC LAB WORK August 04, 2024 5:00am FDC LAB WORK September 29, 2024 4 :00am FDC LAB WORK October 05, 2024 5 :00am 6 M FU October 12, 2024 1:0 9pm Chief Complaint Admit Date 6 M FU October 12, 2024 1:0 9pm FDC LAB WORK November 24, 2024 5:0 0am FDC LAB WORK December 16, 2024 4:0 0am FDC LAB WORK December 22, 2024 5: 00am [...] 2025 11:1 2pm Chief Complaint Admit Date FDC LAB WORK November 24, 2024 5:0 0am FDC LAB WORK December 16, 2024 4:0 0am FDC LAB WORK December 22, 2024 5: 00am [...] 02, 2025 11:12pm Chief Complaint Admit Date FDC LAB WORK November 24, 2024 5:0 0am FDC LAB WORK December 16, 2024 4:0 0am FDC LAB WORK December 22, 2024 5: 00am [...] 2025 6: 24pm Chief Complaint Admit Date FDC LAB WORK November 24, 2024 5:0 0am FDC LAB WORK December 16, 2024 4:0 0am FDC LAB WORK December 22, 2024 5: 00am [...] 03, 2025 3:23pm Chief Complaint Admit Date FDC LAB WORK November 24, 2024 5:0 0am FDC LAB WORK December 16, 2024 4:0 0am FDC LAB WORK December 22, 2024 5: 00am [...] LAB WORK February 22, 2025 4: 00am FDC LAB WORK February 25, 2025 5:00am LABWORK February 26, 2025 5: 00am lethargic February 27, 2025 6: 24pm LABWORKJ March 03, 2025 5: 00am Post Angiogram 2-4 WK FU March 03 3:23pm FOLLOW UP PVD March 16, 2025 12:51pm S/P [facility] 02/22March 22, 2025 9:47am Reason for Visit [...] 22, 2025 9:47am Chief Complaint Admit Date FDC LAB WORK November 24, 2024 5:0 0am FDC LAB WORK December 16, 2024 4:0 0am FDC LAB WORK December 22, 2024 5: 00am [...] LAB WORK February 22, 2025 4: 00am FDC LAB WORK February 25, 2025 5:00am LABWORK [...] 22, 2025 12:14pm Chief Complaint Admit Date FDC LAB WORK December 16, 2024 4:0 0am FDC LAB WORK December 22, 2024 5: 00am [...] LAB WORK February 22, 2025 4: 00am FDC LAB WORK February 25, 2025 5:00am LABWORK February 26, 2025 5: 00am lethargic February 27, 2025 6: 24pm LABWORKJ March 03, 2025 5: 00am Post Angiogram 2-4 WK FU March 03 3:23pm FOLLOW UP PVD March 16, 2025 12:51pm S/P [facility] 02/22March 22, 2025 9:47am overdue PPM f/u March 22, 2025 12:14pm Chief Complaint Admit Date FDC LAB WORK December 16, 2024 4:0 0am FDC LAB WORK December 22, 2024 5: 00am [...] LAB WORK February 22, 2025 4: 00am FDC LAB WORK February 25, 2025 5:00am LABWORK February 26, 2025 5: 00am lethargic February 27, 2025 6: 24pm LABWORKJ March 03, 2025 5: 00am Post Angiogram 2-4 WK FU March 03 3:23pm FDC LAB WORK March 16 4:00am FOLLOW UP [...] Diagnoses Driving safety issue Procedures CONSULT TO HEALTH SAFETY SPECIALIST OCCUPATIONAL THERAPY EVAL HIGH COMPLEX 60 MINS Jojo aKur MD [address] [place] [address] [facility] [place] [address] Referral ID Status Reason Start Date Expiration Date Visits Requested Visits Authorized [id number] Authorized PCP Requested Referral Auto-Generate d Referral 09/07/2022 09/07/2023 99 99 Specialty Diagnoses / Procedures Referred By Linn carrillo Referred To Contact [facility] Diagnoses Polyneuropathy Procedures CONSULT TO PHYSICAL THERAPY PHYSICAL THERAPY [facility] HIGH COMPLEX 45 MINS Jojo Kaur MD [address] [place] [address] [facility] [place] [address] Referral ID Status Reason Start Date Expiration Date Visits Requested Visits Authorized [id number] Authorized PCP Requested Referral Auto-Generate d Referral 04/17/2022 04/17/2023 99 99 Specialty Diagnoses / Procedures Referred By Linn carrillo Referred To Contact Psychology Diagnoses Generalized anxiety disorder Procedures CONSULT TO PSYCHOLOGY OFFICE/OUTPATIENT [facility] MDM 60-74 MINUTES Jojo Kaur MD [address] [place] [address] Referral ID Status Reason Start Date Expiration Date Visits Requested Visits Authorized [id number] Pending Review PCP Requested Referral 04/17/2022 04/17/2023 1 1 Specialty Diagnoses / Procedures Referred By Contac t Referred To Contact Podiatry Diagnoses Type 2 diabetes mellitus with diabetic neuropathy, with long-term current use of insulin (HCC) Procedures CONSULT TO PODIATRY OFFICE/OUTPATIENT [facility] 60-74 MINUTES PodlogRoselia hernandez APRN.MANAGER SIMULATION [address] [place] [address] Referral ID Status Reason Start Date Expiration Date Visits Requested Visits Authorized [id number] Authorized PCP Requested Referral 01/12/2022 01/11/2023 1 1 Specialty Diagnoses / Procedures Referred By Linn t Referred To Contact [facility] Diagnoses Altered mental status, unspecified altered mental status type Procedures CONSULT TO SPEECH THERAPY OFFICE/OUTPATIENT [facility] 60-74 MINUTES Jojo Kaur MD [address] [place] [id number] [facility] [place] [id number] Referral ID Status Reason Start Date Expiration Date Visits Requested Visits Authorized [id number] Authorized Auto-Generat ed Referral 01/05/2022 01/05/2023 99 99 Specialty Diagnoses / Procedures Referred By Linn t Referred To Contact [facility] Diagnoses Abnormality of gait due to impairment of balance Procedures CONSULT TO PHYSICAL THERAPY PHYSICAL THERAPY EVALUATION HIGH COMPLEX 45 MINS Jojo Kaur MD [address] [place] [id number] [facility] [place] [address] Referral ID Status Reason Start Date Expiration Date Visits Requested Visits Authorized [id number] Authorized PCP Requested Referral Auto-Generate d Referral 01/05/2022 01/05/2023 99 99 Specialty Diagnoses / Procedures Referred By Contac t Referred To Contact [facility] Diagnoses Altered mental status, unspecified altered mental status type Procedures EPIL EEG ROUTINE ELECTROENCEPHALOGRAM REC COMA/SLEEP ONLY Jojo Kaur MD [address] [place] [address] [facility] [place] [address] [place], [place] [address], [place] [address] Referral ID Status Reason Start Date Expiration Date Visits Requested Visits Authorized [id number] Authorized Auto-Generat ed Referral 01/05/2022 01/05/2023 1 1 Specialty Diagnoses / Procedures Referred By Linn t Referred To Contact Neurology Diagnoses Altered mental status, unspecified altered mental status type Procedures CONSULT TO NEUROLOGY OFFICE/OUTPATIENT NEW HIGH MDM 60-74 MINUTES Abdulaziz Caldera MD [address] [place] [address] Referral ID Status Reason Start Date Expiration Date Visits Requested Visits Authorized [id number] Authorized PCP Requested Referral 01/01/2022 01/01/2023 1 1 Summary Purpose Additional Source Comments Source Comments (unrecognize d section and content) In the event this informatio n is protected by the Federal Confidentiality of Alcohol and Drug Abuse Patient Records regulations: The Federal rules restrict any use of the information to criminally investigate or prosecute any alcohol or drug abuse patient.[facility] the event this information is protected by the Federal Confidentiality of Alcohol and Drug Abuse Patient Records regulations: The Federal rules restrict any use of the information to criminally investigate or prosecute any alcohol or drug abuse patient.[facility] the event this information is protected by the Federal Confidentiality of Alcohol and Drug Abuse Patient Records regulations: The Federal rules restrict any use of the information to criminally investigate or prosecute any alcohol or drug abuse patient.[facility] the event this information is protected by the Federal Confidentiality of Alcohol and Drug Abuse Patient Records regulations: The Federal rules restrict any use of the information to criminally investigate or prosecute any alcohol or drug abuse patient.[facility] HospitalIn the event this information is protected by the Federal Confidentiality of Alcohol and Drug Abuse Patient Records regulations: The Federal rules restrict any use of the information to criminally investigate or prosecute any alcohol or drug abuse patient.[facility] HospitalIn the event this information is protected by the Federal Confidentiality of Alcohol and Drug Abuse Patient Records regulations: The Federal rules restrict any use of the information to criminally investigate or prosecute any alcohol or drug abuse patient.[facility] HospitalIn the event this information is protected by the Federal Confidentiality of Alcohol and Drug Abuse Patient Records regulations: The Federal rules restrict any use of the information to criminally investigate or prosecute any alcohol or drug abuse patient.[facility] HospitalIn the event this information is protected by the Federal Confidentiality of Alcohol and Drug Abuse Patient Records regulations: The Federal rules restrict any use of the information to criminally investigate or prosecute any alcohol or drug abuse patient.[facility] HospitalIn the event this information is protected by the Federal Confidentiality of Alcohol and Drug Abuse Patient Records regulations: The Federal rules restrict any use of the information to criminally investigate or prosecute any alcohol or drug abuse patient.[facility] HospitalIn the event this information is protected by the Federal Confidentiality of Alcohol and Drug Abuse Patient Records regulations: The Federal rules restrict any use of the information to criminally investigate or prosecute any alcohol or drug abuse patient.[facility] HospitalIn the event this information is protected by the Federal Confidentiality of Alcohol and Drug Abuse Patient Records regulations: The Federal rules restrict any use of the information to criminally investigate or prosecute any alcohol or drug abuse patient.[facility] HospitalIn the event this information is protected by the Federal Confidentiality of Alcohol and Drug Abuse Patient Records regulations: The Federal rules restrict any use of the information to criminally investigate or prosecute any alcohol or drug abuse patient.[facility] HospitalIn the event this information is protected by the Federal Confidentiality of Alcohol and Drug Abuse Patient Records regulations: The Federal rules restrict any use of the information to criminally investigate or prosecute any alcohol or drug abuse patient.[facility] HospitalIn the event this information is protected by the Federal Confidentiality of Alcohol and Drug Abuse Patient Records regulations: The Federal rules restrict any use of the information to criminally investigate or prosecute any alcohol or drug abuse patient.[facility] HospitalIn the event this information is protected by the Federal Confidentiality of Alcohol and Drug Abuse Patient Records regulations: The Federal rules restrict any use of the information to criminally investigate or prosecute any alcohol or drug abuse patient.[facility] HospitalIn the event this information is protected by the Federal Confidentiality of Alcohol and Drug Abuse Patient Records regulations: The Federal rules restrict any use of the information to criminally investigate or prosecute any alcohol or drug abuse patient.[facility] HospitalIn the event this information is protected by the Federal Confidentiality of Alcohol and Drug Abuse Patient Records regulations: The Federal rules restrict any use of the information to criminally investigate or prosecute any alcohol or drug abuse patient.[facility] HospitalIn the event this information is protected by the Federal Confidentiality of Alcohol and Drug Abuse Patient Records regulations: The Federal rules restrict any use of the information to criminally investigate or prosecute any alcohol or drug abuse patient.[facility] HospitalIn the event this information is protected by the Federal Confidentiality of Alcohol and Drug Abuse Patient Records regulations: The Federal rules restrict any use of the information to criminally investigate or prosecute any alcohol or drug abuse patient.[facility] HospitalIn the event this information is protected by the Federal Confidentiality of Alcohol and Drug Abuse Patient Records regulations: The Federal rules restrict any use of the information to criminally investigate or prosecute any alcohol or drug abuse patient.[facility] HospitalIn the event this information is protected by the Federal Confidentiality of Alcohol and Drug Abuse Patient Records regulations: The Federal rules restrict any use of the information to criminally investigate or prosecute any alcohol or drug abuse patient.[facility] HospitalIn the event this information is protected by the Federal Confidentiality of Alcohol and Drug Abuse Patient Records regulations: The Federal rules restrict any use of the information to criminally investigate or prosecute any alcohol or drug abuse patient.[facility] HospitalIn the event this information is protected by the Federal Confidentiality of Alcohol and Drug Abuse Patient Records regulations: The Federal rules restrict any use of the information to criminally investigate or prosecute any alcohol or drug abuse patient.[facility] HospitalIn the event this information is protected by the Federal Confidentiality of Alcohol and Drug Abuse Patient Records regulations: The Federal rules restrict any use of the information to criminally investigate or prosecute any alcohol or drug abuse patient.[facility] HospitalIn the event this information is protected by the Federal Confidentiality of Alcohol and Drug Abuse Patient Records regulations: The Federal rules restrict any use of the information to criminally investigate or prosecute any alcohol or drug abuse patient.[facility] HospitalIn the event this information is protected by the Federal Confidentiality of Alcohol and Drug Abuse Patient Records regulations: The Federal rules restrict any use of the information to criminally investigate or prosecute any alcohol or drug abuse patient.[facility] HospitalIn the event this information is protected by the Federal Confidentiality of Alcohol and Drug Abuse Patient Records regulations: The Federal rules restrict any use of the information to criminally investigate or prosecute any alcohol or drug abuse patient.[facility] HospitalIn the event this information is protected by the Federal Confidentiality of Alcohol and Drug Abuse Patient Records regulations: The Federal rules restrict any use of the information to criminally investigate or prosecute any alcohol or drug abuse patient.[facility] HospitalIn the event this information is protected by the Federal Confidentiality of Alcohol and Drug Abuse Patient Records regulations: The Federal rules restrict any use of the information to criminally investigate or prosecute any alcohol or drug abuse patient.[facility] HospitalIn the event this information is protected by the Federal Confidentiality of Alcohol and Drug Abuse Patient Records regulations: The Federal rules restrict any use of the information to criminally investigate or prosecute any alcohol or drug abuse patient.[facility] HospitalIn the event this information is protected by the Federal Confidentiality of Alcohol and Drug Abuse Patient Records regulations: The Federal rules restrict any use of the information to criminally investigate or prosecute any alcohol or drug abuse patient.[facility] HospitalIn the event this information is protected by the Federal Confidentiality of Alcohol and Drug Abuse Patient Records regulations: The Federal rules restrict any use of the information to criminally investigate or prosecute any alcohol or drug abuse patient.[facility] HospitalIn the event this information is protected by the Federal Confidentiality of Alcohol and Drug Abuse Patient Records regulations: The Federal rules restrict any use of the information to criminally investigate or prosecute any alcohol or drug abuse patient.[facility] HospitalIn the event this information is protected by the Federal Confidentiality of Alcohol and Drug Abuse Patient Records regulations: The Federal rules restrict any use of the information to criminally investigate or prosecute any alcohol or drug abuse patient.[facility] HospitalIn the event this information is protected by the Federal Confidentiality of Alcohol and Drug Abuse Patient Records regulations: The Federal rules restrict any use of the information to criminally investigate or prosecute any alcohol or drug abuse patient.[facility] HospitalIn the event this information is protected by the Federal Confidentiality of Alcohol and Drug Abuse Patient Records regulations: The Federal rules restrict any use of the information to criminally investigate or prosecute any alcohol or drug abuse patient.[facility] HospitalIn the event this information is protected by the Federal Confidentiality of Alcohol and Drug Abuse Patient Records regulations: The Federal rules restrict any use of the information to criminally investigate or prosecute any alcohol or drug abuse patient.[facility] HospitalIn the event this information is protected by the Federal Confidentiality of Alcohol and Drug Abuse Patient Records regulations: The Federal rules restrict any use of the information to criminally investigate or prosecute any alcohol or drug abuse patient.[facility] HospitalIn the event this information is protected by the Federal Confidentiality of Alcohol and Drug Abuse Patient Records regulations: The Federal rules restrict any use of the information to criminally investigate or prosecute any alcohol or drug abuse patient.[facility] HospitalIn the event this information is protected by the Federal Confidentiality of Alcohol and Drug Abuse Patient Records regulations: The Federal rules restrict any use of the information to criminally investigate or prosecute any alcohol or drug abuse patient.[facility] HospitalIn the event this information is protected by the Federal Confidentiality of Alcohol and Drug Abuse Patient Records regulations: The Federal rules restrict any use of the information to criminally investigate or prosecute any alcohol or drug abuse patient.[facility] HospitalIn the event this information is protected by the Federal Confidentiality of Alcohol and Drug Abuse Patient Records regulations: The Federal rules restrict any use of the information to criminally investigate or prosecute any alcohol or drug abuse patient.[facility] HospitalIn the event this information is protected by the Federal Confidentiality of Alcohol and Drug Abuse Patient Records regulations: The Federal rules restrict any use of the information to criminally investigate or prosecute any alcohol or drug abuse patient.[facility] HospitalIn the event this information is protected by the Federal Confidentiality of Alcohol and Drug Abuse Patient Records regulations: The Federal rules restrict any use of the information to criminally investigate or prosecute any alcohol or drug abuse patient.[facility] HospitalIn the event this information is protected by the Federal Confidentiality of Alcohol and Drug Abuse Patient Records regulations: The Federal rules restrict any use of the information to criminally investigate or prosecute any alcohol or drug abuse patient.[facility] HospitalIn the event this information is protected by the Federal Confidentiality of Alcohol and Drug Abuse Patient Records regulations: The Federal rules restrict any use of the information to criminally investigate or prosecute any alcohol or drug abuse patient.[facility] HospitalIn the event this information is protected by the Federal Confidentiality of Alcohol and Drug Abuse Patient Records regulations: The Federal rules restrict any use of the information to criminally investigate or prosecute any alcohol or drug abuse patient.[facility] HospitalIn the event this information is protected by the Federal Confidentiality of Alcohol and Drug Abuse Patient Records regulations: The Federal rules restrict any use of the information to criminally investigate or prosecute any alcohol or drug abuse patient.[facility] HospitalIn the event this information is protected by the Federal Confidentiality of Alcohol and Drug Abuse Patient Records regulations: The Federal rules restrict any use of the information to criminally investigate or prosecute any alcohol or drug abuse patient.[facility] HospitalIn the event this information is protected by the Federal Confidentiality of Alcohol and Drug Abuse Patient Records regulations: The Federal rules restrict any use of the information to criminally investigate or prosecute any alcohol or drug abuse patient.[facility] HospitalIn the event this information is protected by the Federal Confidentiality of Alcohol and Drug Abuse Patient Records regulations: The Federal rules restrict any use of the information to criminally investigate or prosecute any alcohol or drug abuse patient.[facility] HospitalIn the event this information is protected by the Federal Confidentiality of Alcohol and Drug Abuse Patient Records regulations: The Federal rules restrict any use of the information to criminally investigate or prosecute any alcohol or drug abuse patient.[facility] HospitalIn the event this information is protected by the Federal Confidentiality of Alcohol and Drug Abuse Patient Records regulations: The Federal rules restrict any use of the information to criminally investigate or prosecute any alcohol or drug abuse patient.[facility] HospitalIn the event this information is protected by the Federal Confidentiality of Alcohol and Drug Abuse Patient Records regulations: The Federal rules restrict any use of the information to criminally investigate or prosecute any alcohol or drug abuse patient.[facility] HospitalIn the event this information is protected by the Federal Confidentiality of Alcohol and Drug Abuse Patient Records regulations: The Federal rules restrict any use of the information to criminally investigate or prosecute any alcohol or drug abuse patient.[facility] HospitalIn the event this information is protected by the Federal Confidentiality of Alcohol and Drug Abuse Patient Records regulations: The Federal rules restrict any use of the information to criminally investigate or prosecute any alcohol or drug abuse patient.[facility] HospitalIn the event this information is protected by the Federal Confidentiality of Alcohol and Drug Abuse Patient Records regulations: The Federal rules restrict any use of the information to criminally investigate or prosecute any alcohol or drug abuse patient.[facility] HospitalIn the event this information is protected by the Federal Confidentiality of Alcohol and Drug Abuse Patient Records regulations: The Federal rules restrict any use of the information to criminally investigate or prosecute any alcohol or drug abuse patient.[facility] HospitalIn the event this information is protected by the Federal Confidentiality of Alcohol and Drug Abuse Patient Records regulations: The Federal rules restrict any use of the information to criminally investigate or prosecute any alcohol or drug abuse patient.[facility] HospitalIn the event this information is protected by the Federal Confidentiality of Alcohol and Drug Abuse Patient Records regulations: The Federal rules restrict any use of the information to criminally investigate or prosecute any alcohol or drug abuse patient.[facility] HospitalIn the event this information is protected by the Federal Confidentiality of Alcohol and Drug Abuse Patient Records regulations: The Federal rules restrict any use of the information to criminally investigate or prosecute any alcohol or drug abuse patient.[facility] HospitalIn the event this information is protected by the Federal Confidentiality of Alcohol and Drug Abuse Patient Records regulations: The Federal rules restrict any use of the information to criminally investigate or prosecute any alcohol or drug abuse patient.[facility] HospitalIn the event this information is protected by the Federal Confidentiality of Alcohol and Drug Abuse Patient Records regulations: The Federal rules restrict any use of the information to criminally investigate or prosecute any alcohol or drug abuse patient.[facility] HospitalIn the event this information is protected by the Federal Confidentiality of Alcohol and Drug Abuse Patient Records regulations: The Federal rules restrict any use of the information to criminally investigate or prosecute any alcohol or drug abuse patient.[facility] HospitalIn the event this information is protected by the Federal Confidentiality of Alcohol and Drug Abuse Patient Records regulations: The Federal rules restrict any use of the information to criminally investigate or prosecute any alcohol or drug abuse patient.[facility] HospitalIn the event this information is protected by the Federal Confidentiality of Alcohol and Drug Abuse Patient Records regulations: The Federal rules restrict any use of the information to criminally investigate or prosecute any alcohol or drug abuse patient.[facility] HospitalIn the event this information is protected by the Federal Confidentiality of Alcohol and Drug Abuse Patient Records regulations: The Federal rules restrict any use of the information to criminally investigate or prosecute any alcohol or drug abuse patient.[facility] HospitalIn the event this information is protected by the Federal Confidentiality of Alcohol and Drug Abuse Patient Records regulations: The Federal rules restrict any use of the information to criminally investigate or prosecute any alcohol or drug abuse patient.[facility] HospitalIn the event this information is protected by the Federal Confidentiality of Alcohol and Drug Abuse Patient Records regulations: The Federal rules restrict any use of the information to criminally investigate or prosecute any alcohol or drug abuse patient.[facility] HospitalIn the event this information is protected by the Federal Confidentiality of Alcohol and Drug Abuse Patient Records regulations: The Federal rules restrict any use of the information to criminally investigate or prosecute any alcohol or drug abuse patient.[facility] HospitalIn the event this information is protected by the Federal Confidentiality of Alcohol and Drug Abuse Patient Records regulations: The Federal rules restrict any use of the information to criminally investigate or prosecute any alcohol or drug abuse patient.[facility] HospitalIn the event this information is protected by the Federal Confidentiality of Alcohol and Drug Abuse Patient Records regulations: The Federal rules restrict any use of the information to criminally investigate or prosecute any alcohol or drug abuse patient.[facility] HospitalIn the event this information is protected by the Federal Confidentiality of Alcohol and Drug Abuse Patient Records regulations: The Federal rules restrict any use of the information to criminally investigate or prosecute any alcohol or drug abuse patient.[facility] HospitalIn the event this information is protected by the Federal Confidentiality of Alcohol and Drug Abuse Patient Records regulations: The Federal rules restrict any use of the information to criminally investigate or prosecute any alcohol or drug abuse patient.[facility] HospitalIn the event this information is protected by the Federal Confidentiality of Alcohol and Drug Abuse Patient Records regulations: The Federal rules restrict any use of the information to criminally investigate or prosecute any alcohol or drug abuse patient.[facility] HospitalIn the event this information is protected by the Federal Confidentiality of Alcohol and Drug Abuse Patient Records regulations: The Federal rules restrict any use of the information to criminally investigate or prosecute any alcohol or drug abuse patient.[facility] HospitalIn the event this information is protected by the Federal Confidentiality of Alcohol and Drug Abuse Patient Records regulations: The Federal rules restrict any use of the information to criminally investigate or prosecute any alcohol or drug abuse patient.[facility] HospitalIn the event this information is protected by the Federal Confidentiality of Alcohol and Drug Abuse Patient Records regulations: The Federal rules restrict any use of the information to criminally investigate or prosecute any alcohol or drug abuse patient.[facility] HospitalIn the event this information is protected by the Federal Confidentiality of Alcohol and Drug Abuse Patient Records regulations: The Federal rules restrict any use of the information to criminally investigate or prosecute any alcohol or drug abuse patient.[facility] Reason for Visit (unrecogniz ed section and content) Reason Comments PT Discharge Specialty Diagnoses / Procedures Referred By Contac t Referred To Contact [facility] Diagnoses Abnormality of gait due to impairment of balance Procedures CONSULT TO PHYSICAL THERAPY PHYSICAL THERAPY EVALUATION HIGH COMPLEX 45 MINS Jojo Kaur MD [address] [place] [address] [facility] [address] [place] [address] Referral ID Status Reason Start Date Expiration Date Visits Requested Visits Authorized [id number] Authorized PCP Requested Referral Auto-Generate d Referral [...] 6 mo Reason Comments Hospital Follow Up [facility] discharged Reason Comments Results Reason Comments Consult altered mental statu s Specialty Diagnoses / Procedures Referred By Contac t Referred To Contact Neurology Diagnoses Altered mental status, unspecified altered mental status type Procedures CONSULT TO NEUROLOGY OFFICE/OUTPATIENT NEW [facility] MDM 60-74 MINUTES Abdulaziz Caldera MD [address] [place] [address] Referral ID Status Reason Start Date Expiration Date V isits Requested Visits Authorized [id number] Closed PCP Requested Referral 01/01/2022 01/01/2023 1 [...] Nursing Plan of Care Update Reason Comments [facility] PT POC Reason Comments OT plan of care Reason Onset Date Comments Refill Request 07/25/2022 Reason Comments Home Health-Nursing Update Reason Onset Date Comments Anticoagulation 07/31/2022 Specialty Diagnoses / Procedures Referred By Linn carrillo Referred To Contact Ent - Otolaryngology Diagnoses Chronic frontal sinusitis Procedures CONSULT TO ENT OFFICE/OUTPATIENT NEW HIGH MDM 60-74 MINUTES Abdulaziz Caldera MD [address] [place] [address] Referral ID Status Reason Start Date Expiration Date V isits Requested Visits Authorized [id number] Closed PCP Requested Referral 07/12/2022 07/12/2023 1 [...] Care Teams (unrecognized sec tion and content) Environmental Health Physician Relationship Specialty Start Date End Date Abdulaziz Caldera MD [address] [place] [address] PCP - General Family Practice 11/23/20 Environmental Health Physician Relationship Specialty Start Date End Date Abdulaziz Caldera MD [address] [place] [address] PCP - General Family Practice 11/23/20 Environmental Health Physician Relationship Specialty Start Date End Date Abdulaziz Caldera MD [address] [place] [address] PCP - General Family Practice 11/23/20 Environmental Health Physician Relationship Specialty Start Date End Date Abdulaziz Caldera MD [address] [place] [address] PCP - General Family Practice 11/23/20 Environmental Health Physician Relationship Specialty Start Date End Date Abdulaziz Caldera MD [address] [place] [address] PCP - General Family Practice 11/23/20 Environmental Health Physician Relationship Specialty Start Date End Date Abdulaziz Caldera MD [address] [place] [address] PCP - General Family Practice 11/23/20 Environmental Health Physician Relationship Specialty Start Date End Date Abdulaziz Caldera MD [address] [place] [address] PCP - General Family Practice 11/23/20 Environmental Health Physician Relationship Specialty Start Date End Date Abdulaziz Caldera MD [address] [place] [address] PCP - General Family Practice 11/23/20 Environmental Health Physician Relationship Specialty Start Date End Date Abdulaziz Caldera MD [address] [place] [address] PCP - General Family Practice 11/23/20 Environmental Health Physician Relationship Specialty Start Date End Date Abdulaziz Caldera MD [address] [place] [address] PCP - General Family Practice 11/23/20 Environmental Health Physician Relationship Specialty Start Date End Date Abdulaziz Caldera MD [address] [place] [address] PCP - General Family Practice 11/23/20 Environmental Health Physician Relationship Specialty Start Date End Date Abdulaziz Caldera MD [address] [place] [address] PCP - General Family Practice 11/23/20 Environmental Health Physician Relationship Specialty Start Date End Date Abdulaziz Caldera MD [address] [place] [address] PCP - General Family Practice 11/23/20 Environmental Health Physician Relationship Specialty Start Date End Date Abdulaziz Caldera MD [address] [place] [address] PCP - General Family Practice 11/23/20 Environmental Health Physician Relationship Specialty Start Date End Date Abdulaziz Caldera MD [address] [place] [address] PCP - General Family Practice 11/23/20 Environmental Health Physician Relationship Specialty Start Date End Date Abdulaziz Caldera MD [facility] [place] [address] PCP - General Family Practice 11/23/20 Environmental Health Physician Relationship Specialty Start Date End Date Abdulaziz Caldera MD [address] [place] [address], [place] [address] PCP - General Family Practice 11/23/20 Environmental Health Physician Relationship Specialty Start Date End Date Abdulaziz Caldera MD [address] [place] [address], [place] [address] PCP - General Family Practice 11/23/20 Environmental Health Physician Relationship Specialty Start Date End Date Abdulaziz Caldera MD [facility] [place] [address] PCP - General Family Practice 11/23/20 Environmental Health Physician Relationship Specialty Start Date End Date Abdulaziz Caldera MD [facility] [place] [address] PCP - General Family Practice 11/23/20 Environmental Health Physician Relationship Specialty Start Date End Date Abdulaziz Caldera MD [facility] [place] [address] PCP - General Family Practice 11/23/20 Environmental Health Physician Relationship Specialty Start Date End Date Abdulaziz Caldera MD [facility] [place] [address] PCP - General Family Practice 11/23/20 Environmental Health Physician Relationship Specialty Start Date End Date Abdulaziz Caldera MD [address] [place] [address] PCP - General Family Medicine 11/23/20 Environmental Health Physician Relationship Specialty Start Date End Date Abdulaziz Caldera MD [address] [place] [address] PCP - General Family Medicine 11/23/20 Environmental Health Physician Relationship Specialty Start Date End Date Abdulaziz Caldera MD [address] [place] [address] PCP - General Family Medicine 11/23/20 Environmental Health Physician Relationship Specialty Start Date End Date Abdulaziz Caldera MD [address] [place] [address] PCP - General Family Medicine 11/23/20 Environmental Health Physician Relationship Specialty Start Date End Date Abdulaziz Caldera MD [address] [place] [address] PCP - General Family Medicine 11/23/20 Environmental Health Physician Relationship Specialty Start Date End Date Abdulaziz Caldera MD [address] [place] [address] PCP - General Family Medicine 11/23/20 Environmental Health Physician Relationship Specialty Start Date End Date Abdulaziz Caldera MD [address] [place] [address] PCP - General Family Medicine 11/23/20 Environmental Health Physician Relationship Specialty Start Date End Date Abdulaziz Caldera MD [address] [place] [address] PCP - General Family Medicine 11/23/20 Environmental Health Physician Relationship Specialty Start Date End Date Abdulaziz Caldera MD [address] [place] [address] PCP - General Family Medicine 11/23/20 Environmental Health Physician Relationship Specialty Start Date End Date Abdulaziz Caldera MD [address] [place] [address] PCP - General Family Medicine 11/23/20 Environmental Health Physician Relationship Specialty Start Date End Date Abdulaziz Caldera MD [address] [place] [address] PCP - General Family Medicine 11/23/20 Environmental Health Physician Relationship Specialty Start Date End Date Abdulaziz Caldera MD [address] [place] [address] PCP - General Family Medicine 11/23/20 Environmental Health Physician Relationship Specialty Start Date End Date Abdulaziz Caldera MD [address] [place] [address] PCP - General Family Medicine 11/23/20 Environmental Health Physician Relationship Specialty Start Date End Date Abdulaziz Caldera MD [address] [place] [address] PCP - General Family Medicine 11/23/20 Environmental Health Physician Relationship Specialty Start Date End Date Abdulaziz Caldera MD [address] [place] [address] PCP - General Family Medicine 11/23/20 Environmental Health Physician Relationship Specialty Start Date End Date Abdulaziz Caldera MD [address] [place] [address] PCP - General Family Medicine 11/23/20 Environmental Health Physician Relationship Specialty Start Date End Date Abdulaziz Caldera MD [address] [place] [address] PCP - General Family Medicine 11/23/20 Environmental Health Physician Relationship Specialty Start Date End Date Abdulaziz Caldera MD [address] [place], [place] [address] PCP - General Family Medicine 11/23/20 Environmental Health Physician Relationship Specialty Start Date End Date Abdulaziz Caldera MD [address] [place] [address] PCP - General Family Medicine 11/23/20 Team [...] MD Admit Provider, Attending Provi skip Active Environmental Health Physician Relationship Specialty Start Date End Date Abdulaziz Caldera MD [address] [place] [address] PCP - General Family Medicine 11/23/20 Team [...] Admit Provider, Attending Provi skip Active Dr. Lzizeth Riggs MD Other Provider Active Team Status: Active Member Role Status Dates Dr. Luis Caldera MD Primary Care Provider Acti ve Dr. Syed Allen DO Emergency Provider Active Dr. Karen Aly MD Admit Provider, Attending Prov ider Active Environmental Health Physician Relationship Specialty Start Date End Date Abdulaziz Caldera MD [address] [place] [address] PCP - General Family Medicine 11/23/20 Team [...] MD Primary Care Provider Acti ve Walter Rosita MAYORGA MD Attending Provider Active Team Status: [...] Provider, Ref erring Provider Active Ann Rodríguez HYDRAULIC MECHANIC, HYDRAULIC MECHANIC-C Attending Provider Active Team Status: Active Member [...] Status: Inactive Member Role Status Dates Dr. Lius Caldera MD Primary Care Provider, Ref erring [...] Emergency Provider Active Start: February 02, 2025 AAYUSH Ross Primary Care Provider Active [...] Start: February 03, 2025 Kuldip Cosby , HYDRAULIC MECHANIC-C Primary Care Provider Active Start: February 03, [...] Member Role/Relationship Status Dates Kuldip Cosby , HYDRAULIC MECHANIC-C Primary Care Provider Active Start: February 03, 2025 Dr. Aneesh Ac MD Attending Provider Active S tart: February 03, 2025 Team Status: Active Member Role/Relationship Status Dates Dr. Nicholas Galarza DO Emergency Provider Active Start: February 04, 2025 Kuldip Cosby , HYDRAULIC MECHANIC-C Primary Care Provider Active Start: February 04, [...] Start: February 04, 2025 Kuldip Cosby , HYDRAULIC MECHANIC-C Primary Care Provider Active Start: February 04, [...] Start: February 05, 2025 Kuldip Cosby , HYDRAULIC MECHANIC-C Primary Care Provider Active Start: February 05, [...] Start: February 06, 2025 Kuldip Cosby , HYDRAULIC MECHANIC-C Primary Care Provider Active Start: February 06, [...] Start: February 07, 2025 Kuldip Cosby , HYDRAULIC MECHANIC-C Primary Care Provider Active Start: February 07, 2025 Dr. Karen Aly MD Admit Provider Active St art: February 07, 2025 Dr. Karen Aly MD Other Provider Active St art: February 07, 2025 Dr. Kee Mejia DPM Other Provider Active Start: February 07, 2025 Dr. Hugo Cervantes MD Attending Provider Active Start: February 07, 2025 DrJose Cervantes MD Other Provider Active Start: February 07, 2025 Dr. Aneesh Ac MD Other Provider Active Start : February 07, 2025 Team Status: Active Member Role/Relationship Status Dates Dr. Nicholas Galarza DO Emergency Provider Active Start: February 08, 2025 Kuldip Cosby HYDRAULIC MECHANIC-C Primary Care Provider Active Start: February 08, [...] Active Start: February 09, 2025 Kuldip Cosby HYDRAULIC MECHANIC-C Primary Care Provider Active Start: February 09, [...] Start: February 09, 2025 Kuldip Cosby , HYDRAULIC MECHANIC-C Primary Care Provider Active Start: February 09, [...] Start: February 10, 2025 Kuldip Cosby , HYDRAULIC MECHANIC-C Primary Care Provider Active Start: February 10, [...] Start: February 10, 2025 Kuldip Cosby , HYDRAULIC MECHANIC-C Primary Care Provider Active Start: February 10, [...] Active Start: February 11, 2025 Kuldip Cosby HYDRAULIC MECHANIC-C Primary Care Provider Active Start: February 11, [...] Start: February 11, 2025 Kuldip Cosby , HYDRAULIC MECHANIC-C Primary Care Provider Active Start: February 11, [...] Active Member Role/Relationship Status Dates Kuldip Cosby HYDRAULIC MECHANIC-C Primary Care Provider Active Start: February 10, [...] Active Start: February 10, 2025 Kuldip Cosby HYDRAULIC MECHANIC-C Primary Care Provider Active Start: February 10, [...] Active Start: February 10, 2025 Kuldip Cosby HYDRAULIC MECHANIC-C Primary Care Provider Active Start: February 10, [...] Active Start: February 11, 2025 Kuldip Cosby HYDRAULIC MECHANIC-C Primary Care Provider Active Start: February 11, [...] Start: February 11, 2025 Kuldip Cosby , HYDRAULIC MECHANIC-C Primary Care Provider Active Start: February 11, 2025 Dr. Karen Aly MD Admit Provider Active St art: February 11, 2025 Dr. Karen Aly MD Other Provider Active St art: February 11, 2025 PRINCE CruzM Other Provider Active Start: February 11, 2025 Dr. Hugo Cervantes MD Attending Provider Active Start: February 11, 2025 Dr. Hugo Cervantes MD Other Provider Active Start: February 11, 2025 Dr. Aneesh Ac MD Other Provider Active Start : February 11, 2025 Dr. Smith Leija MD Other Provider Active Start: February 11, 2025 Team Status: Active Member Role/Relationship Status Dates Kuldip Cosby , HYDRAULIC MECHANIC-C Primary Care Provider Active Start: February 15, 2025 Walter MAYORGA MD Attending Provider Active S tart: February 15, 2025 Team Status: Active Member Role/Relationship Status Dates Kuldip Harjeet , HYDRAULIC MECHANIC-C Primary Care Provider Active Start: February 16, 2025 Walter MAYORGA MD Attending Provider Active S tart: February 16, 2025 Team Status: Active Member Role/Relationship Status Dates Kuldip Harjeet , HYDRAULIC MECHANIC-C Primary Care Provider Active Start: February 17, 2025 Walter MAYORGA MD Attending Provider Active S tart: February 17, 2025 Team Status: Active Member Role/Relationship Status Dates Kuldip Harjeet , HYDRAULIC MECHANIC-C Primary Care Provider Active Start: February 18, 2025 Walter MAYORGA MD Attending Provider Active S tart: February 18, 2025 Team Status: Active Member Role/Relationship Status Dates Kuldip Harjeet , HYDRAULIC MECHANIC-C Primary Care Provider Active Start: February 22, 2025 Walter MAYORGA MD Attending Provider Active S tart: February 22, 2025 Team Status: Active Member Role/Relationship Status Dates Kuldip Lumpkin , HYDRAULIC MECHANIC-C Primary Care Provider Active Start: February 25, 2025 Walter MAYORGA MD Attending Provider Active S tart: February 25, 2025 Team Status: Active Member Role/Relationship Status Dates Kuldip Cosby , HYDRAULIC MECHANIC-C Primary Care Provider Active Start: February 26, 2025 Walter MAYORGA MD Attending Provider Active S tart: February 26, 2025 Team Status: Inactive Member Role/Relationship Status Dates Kuldip Harjeet , HYDRAULIC MECHANIC-C Primary Care Provider Active Start: February 27, 2025 End: February 28, 2025 Dr. Bennett Troncoso , Emergency Provider Active Start: February 27, 2025 End: February 28, 2025 Team Status: Active Member Role/Relationship Status Dates Dr. Walter Becker Sr. , DO Primary Care Provider Active Team Status: Active Member Role/Relationship Status Dates Kuldip Lumpkin , HYDRAULIC MECHANIC-C Primary Care Provider Active Start: February 03, 2025 Dr. Aneesh Ac MD Attending Provider Active S tart: February 03, 2025 Dr. Kee Mejia DPM Referring Provider Active Start: February 03, 2025 Team Status: Active Member Role/Relationship Status Dates Dr. Nicholas Galarza DO Emergency Provider Active Start: February 04, 2025 Kuldip Cosby , HYDRAULIC MECHANIC-C Primary Care Provider Active Start: February 04, [...] Status: Active Member Role/Relationship Status Dates Kuldip Lumpkin , HYDRAULIC MECHANIC-C Primary Care Provider Active Start: March 03, 2025 Walter MAYORGA MD Attending Provider Active S tart: March 03, 2025 Team Status: Inactive Member Role/Relationship Status Dates Kuldip Harjeet , HYDRAULIC MECHANIC-C Referring Provider Active Sta rt: March 03, 2025 End: March 03, 2025 DENIA Baird Attending Provider Active Star t: March 03, 2025 End: March 03, 2025 Dr. Walter Becker Sr. , Primary Care Provider Active Start: March 03, 2025 End: March 03, 2025 Team Status: Active Member Role/Relationship Status Dates Dr. Nicholas Galarza DO Emergency Provider Active Start: February 09, 2025 Kuldip Cosby HYDRAULIC MECHANIC-C Primary Care Provider Active Start: February 09, [...] Active Start: February 10, 2025 Kuldip Cosby HYDRAULIC MECHANIC-C Primary Care Provider Active Start: February 10, [...] Active Member Role/Relationship Status Dates Dr. Nicholas Michell , DO Emergency Provider Active Start: February 11, 2025 Kuldip Cosby HYDRAULIC MECHANIC-C Primary Care Provider Active Start: February 11, [...] Member Role/Relationship Status Dates Kuldip Cosby , HYDRAULIC MECHANIC-C Primary Care Provider Active Start: February 22, 2025 Walter MAYORGA MD Attending Provider Active S tart: February 22, 2025 Walter MAYORGA MD Referring Provider Active S tart: February 22, 2025 Team Status: Inactive Member Role/Relationship Status Dates Kuldip Cosby , HYDRAULIC MECHANIC-C Primary Care Provider Active Start: February 27, [...] Team Status: Inactive Member Role/Relationship Status Dates AAYUSH Ross Referring Provider Active Sta rt: March 22, 2025 End: March 22, 2025 Deangelo Thomson NP, HYDRAULIC MECHANIC-C Attending Provider Active S tart: March 22, [...] Debi Wetzel Attending Provider Active Start: S millitejanessa 2024 End: March 22, 2025 Team Status: Active Member Role/Relationship Status Dates Dr. Luis Caldera MD Primary Care Provider Acti ve Start: December 16, 2024 Walter MAOYRGA MD Attending Provider Active S tart: December [...] End: February 11, 2025 Dr. Kee Mejia , WINSOME Other Provider Active Start: February 02, 2025 [...] Start: February 03, 2025 Kuldip Cosby , HYDRAULIC MECHANIC-C Primary Care Provider Active Start: February 03, [...] Member Role/Relationship Status Dates Kuldip Cosby , HYDRAULIC MECHANIC-C Primary Care Provider Active Start: February 03, 2025 Dr. Aneesh Ac MD Attending Provider Active S tart: February 03, 2025 Dr. Kee Mejia DPM Referring Provider Active Start: February 03, 2025 Team Status: Active Member Role/Relationship Status Dates Dr. Nicholas Galarza DO Emergency Provider Active Start: February 04, 2025 Kuldip Cosby , HYDRAULIC MECHANIC-C Primary Care Provider Active Start: February 04, [...] Active Start: February 04, 2025 Kuldip Cosby HYDRAULIC MECHANIC-C Primary Care Provider Active Start: February 04, [...] Start: February 05, 2025 Kuldip Cosby , HYDRAULIC MECHANIC-C Primary Care Provider Active Start: February 05, [...] Provider Active Start: February 05, 2025 Dr. Aenesh Ac MD Other Provider Active Start : February 05, 2025 Team Status: Active Member Role/Relationship Status Dates Dr. Nicholas Galarza DO Emergency Provider Active Start: February 06, 2025 Kuldip Cosby HYDRAULIC MECHANIC-C Primary Care Provider Active Start: February 06, [...] Start: February 07, 2025 Kuldip Cosby , HYDRAULIC MECHANIC-C Primary Care Provider Active Start: February 07, [...] Start: February 08, 2025 Kuldip Cosby , HYDRAULIC MECHANIC-C Primary Care Provider Active Start: February 08, [...] Start: February 09, 2025 Kuldip Cosby , HYDRAULIC MECHANIC-C Primary Care Provider Active Start: February 09, [...] Start: February 09, 2025 Kuldip Cosby , HYDRAULIC MECHANIC-C Primary Care Provider Active Start: February 09, [...] Member Role/Relationship Status Dates Kuldip Cosby , HYDRAULIC MECHANIC-C Primary Care Provider Active Start: February 10, 2025 End: February 10, 2025 Dr. Júnior Chandra MD Attending Provider Active S tart: February 10, 2025 End: February 10, 2025 Dr. Aneesh Ac MD Referring Provider Active S tart: February 10, 2025 End: February 10, 2025 Team Status: Active Member Role/Relationship Status Dates Dr. Nicholas Galraza DO Emergency Provider Active Start: February 10, 2025 Kuldip Cosby , HYDRAULIC MECHANIC-C Primary Care Provider Active Start: February 10, [...] Start: February 11, 2025 Kuldip Cosby , HYDRAULIC MECHANIC-C Primary Care Provider Active Start: February 11, [...] Team Status: Active Member Role/Relationship Status Dates uKldip Lumpkin , HYDRAULIC MECHANIC-C Primary Care Provider Active Start: February 15, 2025 Walter MAYORGA MD Attending Provider Active S tart: February 15, 2025 Team Status: Active Member Role/Relationship Status Dates Kuldip Harjeet , HYDRAULIC MECHANIC-C Primary Care Provider Active Start: February 16, 2025 Walter MAYORGA MD Attending Provider Active S tart: February 16, 2025 Team Status: Active Member Role/Relationship Status Dates Kuldip Harjeet , HYDRAULIC MECHANIC-C Primary Care Provider Active Start: February 17, 2025 Waletr MAYORGA MD Attending Provider Active S tart: February 17, 2025 Team Status: Active Member Role/Relationship Status Dates Kuldip Lumpkin , HYDRAULIC MECHANIC-C Primary Care Provider Active Start: February 18, 2025 Walter MAYORGA MD Attending Provider Active S tart: February 18, 2025 Team Status: Active Member Role/Relationship Status Dates Kuldip Lumpkin , HYDRAULIC MECHANIC-C Primary Care Provider Active Start: February 22, 2025 Walter MAYORGA MD Attending Provider Active S tart: February 22, 2025 Walter MAYORGA MD Referring Provider Active S tart: February 22, 2025 Team Status: Active Member Role/Relationship Status Dates Kuldip Cosby , HYDRAULIC MECHANIC-C Primary Care Provider Active Start: February 25, 2025 Walter MAYORGA MD Attending Provider Active S tart: February 25, 2025 Team Status: Active Member Role/Relationship Status Dates Kuldip Cosby , HYDRAULIC MECHANIC-C Primary Care Provider Active Start: February 26, 2025 Walter MAYORGA MD Attending Provider Active S tart: February 26, 2025 Team Status: Inactive Member Role/Relationship Status Dates Kuldip Cosby , HYDRAULIC MECHANIC-C Primary Care Provider Active Start: February 27, 2025 End: February 28, 2025 Dr. Bennett Troncoso , Attending Provider Active Start: February 27, 2025 End: February 28, 2025 Dr. Bennett Troncoso , Emergency Provider Active Start: February 27, 2025 End: February 28, 2025 Team Status: Active Member Role/Relationship Status Dates Kuldip Cosby , HYDRAULIC MECHANIC-C Primary Care Provider Active Start: March 03, 2025 Walter MAYORGA MD Attending Provider Active S tart: March 03, 2025 Team Status: Inactive Member Role/Relationship Status Dates Kuldip Cosby , HYDRAULIC MECHANIC-C Referring Provider Active Sta rt: March 03, [...] End: March 22, 2025 Deangelo Thomson NP, HYDRAULIC MECHANIC-C Attending Provider Active S tart: March 22, [...] section and content) DATE CREATED AUTHOR 01/02/2022 [facility] DATE CREATED AUTHOR AUTHOR'S ORGANIZ ATION 02/04/2022 [facility] DATE CREATED AUTHOR AUTHOR'S ORGANIZ ATION 04/19/2022 [facility] ([place]) DATE CREATED AUTHOR AUTHOR'S ORGANIZ ATION 11/07/2024 [facility] DATE CREATED AUTHOR AUTHOR'S ORGANIZ ATION 04/30/2025 [facility] FOR RECORDS PERTAINING TO PATIENTS WHO [...] BASED ON THE PRIMARY CLINICAL RECORDS. [facility] [employer] [facility]. provides no warranty or guarantee of the accuracy or completeness of information in this document.
[2025-05-01 08:59] LABS: Hematocrit 36.7 % (40-54); Hemoglobin 11.8 g/dL (13.0-16.5); Immature Granulocytes Count 0.150 X10^3/uL (0.0-0.0); Mean Corp Hgb Conc 32.2 g/dL (32-36); Mean Corpuscular Volume 83.6 fL (80-94); Mean Platelet Vol. 9.4 fl (6.2-12.0); NRBC Flagged by Analyzer 0 % (0-5); Platelet Count 274 K/mm3 (150-450); RBC Distribution Width CV 14.0 % (11.6-14.6); RBC Distribution Width SD 42.5 fl (35.1-43.9); Red Blood Count 4.39 M/mm3 (4.6-6.2); White Blood Count 10.7 K/mm3 (4.4-11.0)
== END ==
LOC: OLS.ACH 07:30
PROVIDERS: PCP Internal Medicine; Visit Provider Internal Medicine
DX: Z86.14 Personal history of Methicillin resistant Staphylococcus aureus infection (principal); D72.829 Elevated white blood cell count, unspecified
CPT/HCPCS: 85025

== ENCOUNTER → 2025-05-03 05:00 | Outpatient (REF) | payer MEDICARE, OTHER, SELFPAY ==
[2025-05-03 08:20] LABS: Hematocrit 36.7 % (40-54); Hemoglobin 11.7 g/dL (13.0-16.5); Mean Corp Hgb Conc 31.9 g/dL (32-36); Mean Corpuscular Volume 84.4 fL (80-94); Mean Platelet Vol. 9.3 fl (6.2-12.0); Platelet Count 242 K/mm3 (150-450); RBC Distribution Width CV 14.1 % (11.6-14.6); RBC Distribution Width SD 42.6 fl (35.1-43.9); Red Blood Count 4.35 M/mm3 (4.6-6.2); White Blood Count 9.6 K/mm3 (4.4-11.0)
== END ==
LOC: OLS.ACH 05:00
PROVIDERS: PCP Internal Medicine; Visit Provider Internal Medicine
DX: Z86.14 Personal history of Methicillin resistant Staphylococcus aureus infection (principal)
CPT/HCPCS: 36415; 85027

== ENCOUNTER → 2025-05-24 | Outpatient (REF) | payer MEDICARE, OTHER, SELFPAY ==
[2025-05-24 08:15] LABS: Hematocrit 38.5 % (40-54); Hemoglobin 12.4 g/dL (13.0-16.5); Mean Corp Hgb Conc 32.2 g/dL (32-36); Mean Corpuscular Volume 84.2 fL (80-94); Mean Platelet Vol. 9.1 fl (6.2-12.0); Platelet Count 256 K/mm3 (150-450); RBC Distribution Width CV 14.1 % (11.6-14.6); RBC Distribution Width SD 42.9 fl (35.1-43.9); Red Blood Count 4.57 M/mm3 (4.6-6.2); White Blood Count 10.8 K/mm3 (4.4-11.0)
== END ==
LOC: OLS.ACH 05:00
PROVIDERS: PCP Internal Medicine; Visit Provider Internal Medicine
DX: D50.0 Iron deficiency anemia secondary to blood loss (chronic) (principal)
CPT/HCPCS: 36415; 85027

== ENCOUNTER → 2025-06-02 05:00 | Outpatient (REF) | payer MEDICARE, OTHER, SELFPAY ==
--- OUTSIDE RECORDS SUMMARY | 2025-06-02 04:50 | XMS RPT_ITS | CCD ---
Author Organization [facility] Care Team Providers Care Pack Changer Name Role Phone Abdulaziz Caldera MD Primary [...] Dr. Luis Caldera Primary Care Provider [phone] Dr. Karen Aly Admit Provider Dr. Karen [...] Lidia Rasheed Other Provider Dr. Olga Lidia Rsaheed Attending Provider Dr. Karen Aly Attending Provider [...] Care Provider Dr. Syed Allen Emergency Provider [phone] Dr. Karen Aly Admit Provider Dr. Karen Aly Other Provider Dr. Yisel Rendon Attending Provider Dr. Yisel Rendon Other Provider Dr. Olga Lidia Rasheed Other Provider Dr. Luis Caldera Primary Care Provider [phone] Dr. Luis Caldera Referring Provider Debi Wetzel Attending Provider Unavailable Marcos DECORATING MACHINE TENDER, DECORATING MACHINE TENDER-C Ann Attending Provider Dr. Luis Caldera Primary Care Provider Dr. Luis Caldera Referring Provider Dr. Olga Lidia Rasheed Attending Provider Verenice COLBERT, Dr. Smith Primary Care Provider Rosita COLBERT, Walter Attending Provider Unavailable Rosita COLBERT, Walter Referring Provider Unavailable Verenice COLBERT, Dr. Smith Referring Provider [phone] Wili COLBERT, Dr. Duggan Attending Provider Verenice COLBERT, Dr. Smith Primary Care Provider Rosita COLBERT, Walter Attending Provider Unavailable Rosita COLBERT, Walter Referring Provider Unavailable Dr. Nicholas Galarza DO Emergency Provider Harjeet DECORATING MACHINE TENDER-CKuldip Primary Care Provider Jermain COLBERT, Dr. Karen Juan Admit Provider Jermain COLBERT, Dr. Karen Juan Attending Provider Verenice COLBERT, Dr. Smith Primary Care Provider Rosita COLBERT, Walter Attending Provider Unavailable Rosita COLBERT, Walter Referring Provider Unavailable Dr. Nicholas Galarza DO Emergency Provider Harjeet DECORATING MACHINE TENDER-CKuldip Primary Care Provider Jermain COLBERT, Dr. Karen [...] COLBERT, Dr. Hugo Govea Referring Provider Harjeet DECORATING MACHINE TENDER-C, Kuldip Referring Provider Deperro Sr. DO, Dr. Watson Primary Care Provider Karyna DUVALL, Dr. Guajardo Attending Provider Douglas LOZA, Meghana Referring Provider Alix DECORATING MACHINE TENDER-Deangelo Anthony Attending Provider Deperro Sr. DO, Dr. Watson Referring Provider [phone] Debi Wetzel Attending Provider Unavailable Verenice COLBERT, Dr. Smith Primary Care Provider Rosita COLBERT, Walter Attending Provider Unavailable Deperro OLS, Walter Attending Unavailable Deperro Sr., Walter Primary Care Unavailable Haigler, Kuldip Primary Care Unavailable Karen Aly Admitting Unavailable Hugo Cervantes Attending Unavailable Kee Mejia Consulting Unavailable Karen Aly Consulting Unavailable Aneesh Ac Consulting Unavailable Smith Leija Consulting Unavailable Kee Merritt Referring Unavailable Kee Merritt Attending Unavailable Verenice, Luis Primary Care Unavailable Haigler, Kuldip Primary Care Unavailable Deperro OLS, Walter Attending Unavailable Peaceley, Luis Primary Care Unavailable Deperro OLS, Walter Attending Unavailable Deperro OLS, Walter Referring Unavailable Deperro OLS, Walter Attending Unavailable Verenice, Luis Primary Care Unavailable Deperro OLS, Walter Referring Unavailable Deperro OLS, Walter Attending Unavailable Deperro Sr., Walter Primary Care Unavailable Haigler, Kuldip Primary Care Unavailable Deperro OLS, Walter Attending Unavailable Deperro OLS, Walter Attending Unavailable Deperro Sr., Walter Primary Care Unavailable Bursley, Luis Primary Care Unavailable Deperro OLS, Walter Referring Unavailable Deperro OLS, Walter Attending Unavailable Bursley, Luis Primary Care Unavailable Deperro OLS, Walter Attending Unavailable Haigler, Kuldip Primary Care Unavailable Deperro OLS, Walter Attending Unavailable Haigler, Kuldip Primary Care Unavailable Deperro OLS, Walter Referring Unavailable Deperro OLS, Walter Attending Unavailable Haigler, Kuldip Primary Care Unavailable Deperro OLS, Walter Attending Unavailable Harjeet, Kuldip Primary Care Unavailable Deperro OLS, Walter Attending Unavailable Bursley, Luis Primary Care Unavailable Deperro OLS, Walter Attending Unavailable Deperro OLS, Walter Attending Unavailable Bursley, Luis Primary Care Unavailable Haigler, Kuldip Primary Care Unavailable Deperro OLS, Walter Attending Unavailable Haigler, Kuldip Primary Care Unavailable Deperro OLS, Walter Attending Unavailable Deperro OLS, Walter Referring Unavailable Deperro OLS, Walter Attending Unavailable Bursley, Luis Primary Care Unavailable Cole, Meghana Referring Unavailable Douglas, Meghana Attending Unavailable Deperro Sr., Walter Primary Care Unavailable Kee Mejia Consulting Unavailable Karen Aly Admitting Unavailable SonyaonisTundeHugo F Attending Unavailable Haigler, Kuldip Primary Care Unavailable Karen Aly Consulting Unavailable Billy Hugo F Consulting Unavailable Deperro OLS, Walter Attending Unavailable Bursley, Luis Primary Care Unavailable Aneesh Ac Consulting Unavailable Cole, Meghana Attending Unavailable Deperro Sr., Walter Referring Unavailable Deperro Sr., Walter Primary Care Unavailable Cole, Meghana Attending Unavailable Elises Hugo F Referring Unavailable Karen Aly Attending Unavailable Smith Leija Consulting Unavailable Aneesh Ac Attending Unavailable Harjeet, Kuldip Referring Unavailable Harjeet, Kuldip Primary Care Unavailable Roof DECORATING MACHINE TENDERDeangelo Attending Unavailable Bursley, Luis Primary Care Unavailable Olga Lidia Rasheed Attending Unavailable Bursley, Luis Referring Unavailable Deperro Sr., Walter Primary Care Unavailable Corazon, Júnior Attending Unavailable Deperro Sr., Walter Primary Care Unavailable Corazon, [place] Attending Unavailable Corazon, [place] Referring Unavailable Haigler, Kuldip Referring Unavailable Deperro Sr., Walter Primary Care Unavailable Roof DECORATING MACHINE TENDERDeangelo Attending Unavailable Harjeet, Kuldip Referring Unavailable Meghana Cole Attending Unavailable Deperro Sr., Walter Primary Care Unavailable Kuldip Cosby Primary Care Unavailable Kee Mejia Referring Unavailable Aneesh Ac Attending Unavailable Meghana Cole Referring Unavailable Deperro Sr., Walter Primary Care Unavailable Osorio, Aneesh Attending Unavailable Kuldip Cosby Primary Care Unavailable Aneesh Ac Referring Unavailable Júnior Chandra Attending Unavailable Deperro OLS, Walter Attending Unavailable Deperro Sr., Walter Primary Care Unavailable Deperro OLS, Walter Attending Unavailable Deperro Sr., Walter Primary Care Unavailable Deperro Sr., Walter Primary Care Unavailable Deperro OLS, Walter Attending Unavailable Deperro OLS, Walter Attending Unavailable Deperro Sr., Walter Primary Care Unavailable Deperro OLS, Walter Attending Unavailable Luis Caldera Primary Care Unavailable Kuldip Cosby Primary Care Unavailable Bennett Troncoso Attending Unavailable Allergies Allergy Classification Reported Allergen(s) Allergy Type Date of Onset Reaction(s) Facility (20 sources) pantoprazole Drug Allergy 09-24-2019 Diarrhea [facility] (20 sources) Propofol Drug Allergy 12-06-2021 Other [facility] Comment on above: GETS AGGRESSIVE (1 source) Propofol Drug Allergy 05-11-2025 [facility] Repository Medications Current Medications Medication Drug [...] Comment on above: Take 1 capsule by [facility] one time a week. clopidogrel 75 mg oral table t (7 sources) P2Y12 Platelet Inhibitor Start: 02-11-2025 docusate sodium 50 mg / sennosides, alf 8.6 mg oral tablet (12 sources) Start: 01-26-2023 Start: 01-26-2023 take 2 tablets by [facility] twice daily Sennosides-Docusate Sodium (Stool Softener-Stimulant Laxat) [...] hydrochloride 10 mg oral tablet (20 sources) B-cdvyhk-W-aspartate Receptor Antagonist Start: 01-26-2023 End: 02-13-2023 Start: [...] Comment on above: Take 1 capsule by [facility] daily at bedtime. (20 sources) Start: 03-22-2025 [...] 2 tablets by mouth at dinner Warfarin (Jultoven) 4 mg Tablet Discontinued 8 mg PO [...] Coronary atherosclerosis; Translations: [Atherosclerotic heart disease of [place] coronary artery without angina pectoris] Chronic Deficiency [...] [Elevated white blood cell count, unspecified] Onset: 5 Chronic Disorders of lipid metabolism (20 sources) [...] and fatigue (20 sources) Asthenia; Translations: [Weakness] Onset: 5 Episodic Mood disorders (2 sources) Mild depression; [...] Translations: [penitentiary (current) use of anticoagulants] Onset: 8 11-06-2018 [...] Facility CBC-Complete Blood Cnt No Di ffon 05-24-2025 Erythrocyte distribution width (RBC) [Ratio] 14.1 % Normal 11.6-14.6 [facility] Comment on above: Order Comment: 215.2 Performed By: #### L 100.0500 ####[facility] [address] [place], [address] Hematocrit (Bld) [Volume fraction] 38.5 % Low 40-54 [facility] Comment on above: Order Comment: 215.2 Performed By: #### L 100.0500 ####[facility] [address] [place], [address] Hemoglobin (Bld) [Mass/Vol] 12.4 g/dL Low 13.0-16. 5 [facility] Comment on above: Order Comment: 215.2 Performed By: #### L 100.0500 ####[facility] [address] [place], [address] MCH (RBC) [Entitic mass] 27.1 pg Normal 27.0-32.0 [facility] Comment on above: Order Comment: 215.2 Performed By: #### L 100.0500 ####[facility] [address] [place], [address] MCHC (RBC) [Mass/Vol] 32.2 g/dL Normal 32-36 [facility] Comment on above: Order Comment: 215.2 Performed By: #### L 100.0500 ####[facility] [address] [place], [address] MCV (RBC) [Entitic vol] 84.2 fL Normal 80-94 [facility] Comment on above: Order Comment: 215.2 Performed By: #### L 100.0500 ####[facility] [address] [place], [address] Platelet mean volume (Bld) [Entitic vol] 9.1 fL Normal 6.2-12.0 [facility] Comment on above: Order Comment: 215.2 Performed By: #### L 100.0500 ####[facility] [address] [place], [address] Platelets (Bld) [#/Vol] 256 10*3/uL Normal 150-450 [facility] Comment on above: Order Comment: 215.2 Performed By: #### L 100.0500 ####[facility] [address] [place], [address] RBC (Bld) [#/Vol] 4.57 10*6/uL Low 4.6-6.2 [facility] Comment on above: Order Comment: 215.2 Performed By: #### L 100.0500 ####[facility] [address] [place], [address] RDW SD 42.9 fl Normal 35.1-43.9 [facility] Comment on above: Order Comment: 215.2 Performed By: #### L 100.0500 ####[facility] [address] [place], [address] WBC (Bld) [#/Vol] 10.8 10*3/uL Normal 4.4-11.0 [facility] Comment on above: Order Comment: 215.2 Performed By: #### L 100.0500 ####[facility] [address] [place], [address] MR/BMS.BVSon 05-11-2025 MR/BMS.BVS Normal [facility] CBC-Complete Blood Cnt No Di ffon 05-03-2025 Erythrocyte distribution width (RBC) [Ratio] 14.1 % Normal 11.6-14.6 [facility] Comment on above: Order Comment: 215.2 Performed By: #### L 100.0500 ####[facility] [address] [place], [address] Hematocrit (Bld) [Volume fraction] 36.7 % Low 40-54 [facility] Comment on above: Order Comment: 215.2 Performed By: #### L 100.0500 ####[facility] [address] [place], [address] Hemoglobin (Bld) [Mass/Vol] 11.7 g/dL Low 13.0-16. 5 [facility] Comment on above: Order Comment: 215.2 Performed By: #### L 100.0500 ####[facility] [address] [place], [address] MCH (RBC) [Entitic mass] 26.9 pg Low 27.0-32.0 [facility] Comment on above: Order Comment: 215.2 Performed By: #### L 100.0500 ####[facility] [address] [place], [address] MCHC (RBC) [Mass/Vol] 31.9 g/dL Low 32-36 [facility] Comment on above: Order Comment: 215.2 Performed By: #### L 100.0500 ####[facility] [address] [place], [address] MCV (RBC) [Entitic vol] 84.4 fL Normal 80-94 [facility] Comment on above: Order Comment: 215.2 Performed By: #### L 100.0500 ####[facility] [address] [place], [address] Platelet mean volume (Bld) [Entitic vol] 9.3 fL Normal 6.2-12.0 [facility] Comment on above: Order Comment: 215.2 Performed By: #### L 100.0500 ####[facility] [address] [place], [address] Platelets (Bld) [#/Vol] 242 10*3/uL Normal 150-450 [facility] Comment on above: Order Comment: 215.2 Performed By: #### L 100.0500 ####[facility] [address] [place], [address] RBC (Bld) [#/Vol] 4.35 10*6/uL Low 4.6-6.2 [facility] Comment on above: Order Comment: 215.2 Performed By: #### L 100.0500 ####[facility] [address] [place], [address] RDW SD 42.6 fl Normal 35.1-43.9 [facility] Comment on above: Order Comment: 215.2 Performed By: #### L 100.0500 ####[facility] [address] [place], [address] WBC (Bld) [#/Vol] 9.6 10*3/uL Normal 4.4-11.0 [facility] Comment on above: Order Comment: 215.2 Performed By: #### L 100.0500 ####[facility] [address] [place], [address] CBC W/Diff, Automatedon 10- Absolute Lymph 2.23 X10 3/uL Normal 0.83-4.51 [facility] Comment on above: Performed By: #### L 100.0100 ####[facility] [address] [place], [address] Absolute Neut 7.1 X10 3/uL Normal 2.0-7.7 [facility] Comment on above: Performed By: #### L 100.0100 ####[facility] [address] [place], [address] Basophils/100 WBC (Bld) 0.6 % Normal 0-1 [facility] Comment on above: Performed By: #### L 100.0100 ####[facility] [address] [place], [address] Eosinophils/100 WBC (Bld) 5.3 % High 0-5 [facility] Comment on above: Performed By: #### L 100.0100 ####[facility] [address] [place], [address] Erythrocyte distribution width (RBC) [Ratio] 14.0 % Normal 11.6-14.6 [facility] Comment on above: Performed By: #### L 100.0100 ####[facility] [address] [place], [address] Hematocrit (Bld) [Volume fraction] 36.7 % Low 40-54 [facility] Comment on above: Performed By: #### L 100.0100 ####[facility] [address] [place], [address] Hemoglobin (Bld) [Mass/Vol] 11.8 g/dL Low 13.0-16. 5 [facility] Comment on above: Performed By: #### L 100.0100 ####[facility] [address] [place], [address] IG% 1.400 High 0.0-0.9 [facility] Comment on above: Result Comment: IG% - Immature Granulocytes (promyelocytes, myelocytes andmetamyelocytes) > 1% indicates that a LEFT SHIFT is Present. Performed By: #### L 100.0100 ####[facility] [address] [place], [address] Lymphocytes/100 WBC (Bld) 20.8 % Normal 19-41 [facility] Comment on above: Performed By: #### L 100.0100 ####[facility] [address] [place], [address] MCH (RBC) [Entitic mass] 26.9 pg Low 27.0-32.0 [facility] Comment on above: Performed By: #### L 100.0100 ####[facility] [address] [place], [address] MCHC (RBC) [Mass/Vol] 32.2 g/dL Normal 32-36 [facility] Comment on above: Performed By: #### L 100.0100 ####[facility] [address] [place], [address] MCV (RBC) [Entitic vol] 83.6 fL Normal 80-94 [facility] Comment on above: Performed By: #### L 100.0100 ####[facility] [address] [place], [address] Monocytes/100 WBC (Bld) 5.4 % Normal 0-10 [facility] Comment on above: Performed By: #### L 100.0100 ####[facility] [address] [place], [address] Neutrophils/100 WBC (Bld) 66.5 % Normal 47-70 [facility] Comment on above: Performed By: #### L 100.0100 ####[facility] [address] [place], [address] Nucleated RBC (Bld) [#/Vol] 0 10*3/uL Normal 0-5 [facility] Comment on above: Performed By: #### L 100.0100 ####[facility] [address] [place], [address] Platelet mean volume (Bld) [Entitic vol] 9.4 fL Normal 6.2-12.0 [facility] Comment on above: Performed By: #### L 100.0100 ####[facility] [address] [place], [address] Platelets (Bld) [#/Vol] 274 10*3/uL Normal 150-450 [facility] Comment on above: Performed By: #### L 100.0100 ####[facility] [address] [place], [address] RBC (Bld) [#/Vol] 4.39 10*6/uL Low 4.6-6.2 [facility] Comment on above: Performed By: #### L 100.0100 ####[facility] [address] [place], [address] RDW SD 42.5 fl Normal 35.1-43.9 [facility] Comment on above: Performed By: #### L 100.0100 ####[facility] [address] [place], [address] WBC (Bld) [#/Vol] 10.7 10*3/uL Normal 4.4-11.0 [facility] Comment on above: Performed By: #### L 100.0100 ####[facility] [address] [place], [address] Urine Cultureon 05-01-2025 URC Culture exhibits no growth. Normal [facility] Comment on above: Performed By: #### M 100.2200, L400.0001 ####[facility] [address] [place], [address] Urinalysis, Completeon 04-30 BACTERIA 0 SEEN Normal None Seen [facility] Comment on above: Order Comment: CLEAN CATCH Performed By: #### M 100.2200, L400.0001 ####[facility] [address] [place], [address] EPI,SQUAMOUS 0 SEEN Normal 0-5 [facility] Comment on above: Order Comment: CLEAN CATCH Performed By: #### M 100.2200, L400.0001 ####[facility] [address] [place], [address] Mucus Ql (Urine sed) 0 SEEN Normal [facility] Comment on above: Order Comment: CLEAN CATCH Performed By: #### M 100.2200, L400.0001 ####[facility] [address] [place], [address] RBC 0 SEEN Normal 0-5 [facility] Comment on above: Order Comment: CLEAN CATCH Performed By: #### M 100.2200, L400.0001 ####[facility] [address] [place], [address] WBC 0 SEEN Normal 0-5 [facility] Comment on above: Order Comment: CLEAN CATCH Performed By: #### M 100.2200, L400.0001 ####[facility] [address] [place], [address] CBC-Complete Blood Cnt No Di ffon 04-29-2025 Erythrocyte distribution width (RBC) [Ratio] 13.8 % Normal 11.6-14.6 [facility] Comment on above: Order Comment: 215.2 Performed By: #### L 500.4050, L100.0500 ####[facility] [address] [place], [address] Hematocrit (Bld) [Volume fraction] 32.8 % Low 40-54 [facility] Comment on above: Order Comment: 215.2 Performed By: #### L 500.4050, L100.0500 ####[facility] [address] [place], [address] Hemoglobin (Bld) [Mass/Vol] 10.8 g/dL Low 13.0-16. 5 [facility] Comment on above: Order Comment: 215.2 Performed By: #### L 500.4050, L100.0500 ####[facility] [address] [place], [address] MCH (RBC) [Entitic mass] 27.4 pg Normal 27.0-32.0 [facility] Comment on above: Order Comment: 215.2 Performed By: #### L 500.4050, L100.0500 ####[facility] [address] [place], [address] MCHC (RBC) [Mass/Vol] 32.9 g/dL Normal 32-36 [facility] Comment on above: Order Comment: 215.2 Performed By: #### L 500.4050, L100.0500 ####[facility] [address] [place], [address] MCV (RBC) [Entitic vol] 83.2 fL Normal 80-94 [facility] Comment on above: Order Comment: 215.2 Performed By: #### L 500.4050, L100.0500 ####[facility] [address] [place], [address] Platelet mean volume (Bld) [Entitic vol] 9.4 fL Normal 6.2-12.0 [facility] Comment on above: Order Comment: 215.2 Performed By: #### L 500.4050, L100.0500 ####[facility] [address] [place], [address] Platelets (Bld) [#/Vol] 230 10*3/uL Normal 150-450 [facility] Comment on above: Order Comment: 215.2 Performed By: #### L 500.4050, L100.0500 ####[facility] [address] [place], [address] RBC (Bld) [#/Vol] 3.94 10*6/uL Low 4.6-6.2 [facility] Comment on above: Order Comment: 215.2 Performed By: #### L 500.4050, L100.0500 ####[facility] [address] [place], [address] RDW SD 42.3 fl Normal 35.1-43.9 [facility] Comment on above: Order Comment: 215.2 Performed By: #### L 500.4050, L100.0500 ####[facility] [address] [place], [address] WBC (Bld) [#/Vol] 11.6 10*3/uL High 4.4-11.0 [facility] Comment on above: Order Comment: 215.2 Performed By: #### L 500.4050, L100.0500 ####[facility] [address] [place], [address] Comprehensive Metabolic Prof ilsameera 04-29-2025 Albumin [Mass/Vol] 3.3 g/dL Low 3.4-4.8 [facility] Comment on above: Order Comment: 215.2 Performed By: #### L 500.4050, L100.0500 ####[facility] [address] [place], [address] Albumin/Globulin [Mass ratio] 1.6 {ratio} Normal 0.9-2.4 [facility] Comment on above: Order Comment: 215.2 Performed By: #### L 500.4050, L100.0500 ####[facility] [address] [place], [address] ALK PHOS 98 U/L Normal 40-129 [facility] Comment on above: Order Comment: 215.2 Performed By: #### L 500.4050, L100.0500 ####[facility] [address] [place], [address] ALT [Catalytic activity/Vol] 12 U/L Normal <=46 [facility] Comment on above: Order Comment: 215.2 Performed By: #### L 500.4050, L100.0500 ####[facility] [address] [place], [address] AST [Catalytic activity/Vol] 12 U/L Normal <=37 [facility] Comment on above: Order Comment: 215.2 Performed By: #### L 500.4050, L100.0500 ####[facility] [address] [place], [address] Bilirubin [Mass/Vol] 0.35 mg/dL Normal 0.00-1.30 [facility] Comment on above: Order Comment: 215.2 Performed By: #### L 500.4050, L100.0500 ####[facility] [address] [place], [address] BUN/CRE 30.1 RATIO High 10-20 [facility] Comment on above: Order Comment: 215.2 Performed By: #### L 500.4050, L100.0500 ####[facility] [address] [place], [address] Calcium [Mass/Vol] 9.3 mg/dL Normal 7.6-11.0 [facility] Comment on above: Order Comment: 215.2 Performed By: #### L 500.4050, L100.0500 ####[facility] [address] [place], [address] Chloride [Moles/Vol] 103 mmol/L Normal 98-108 [facility] Comment on above: Order Comment: 215.2 Performed By: #### L 500.4050, L100.0500 ####[facility] [address] [place], [address] CO2 [Moles/Vol] 25.5 mmol/L Normal 21.0-32.0 [facility] Comment on above: Order Comment: 215.2 Performed By: #### L 500.4050, L100.0500 ####[facility] [address] [place], [address] Creatinine [Mass/Vol] 1.29 mg/dL High 0.70-1.20 [facility] Comment on above: Order Comment: 215.2 Performed By: #### L 500.4050, L100.0500 ####[facility] [address] [place], [address] GAP 11 Normal 5-15 [facility] Comment on above: Order Comment: 215.2 Performed By: #### L 500.4050, L100.0500 ####[facility] [address] [place], [address] GFR/1.73 sq M.predicted among non-blacks MDRD (S/P/Bld) [Vol rate/Area] 57 mL/min/{1.73_m2} Low >60 [facility] Comment on above: Order Comment: 215.2 Result Comment: mL/m in/1.73m2 CKD-EPI Creatinine Equation (2020) Performed By: #### L 500.4050, L100.0500 ####[facility] [address] [place], [address] Globulin (S) [Mass/Vol] 2.1 g/dL Low 2.2-4.2 [facility] Comment on above: Order Comment: 215.2 Performed By: #### L 500.4050, L100.0500 ####[facility] [address] [place], [address] Glucose [Mass/Vol] 136 mg/dL High 70-99 [facility] Comment on above: Order Comment: 215.2 Performed By: #### L 500.4050, L100.0500 ####[facility] [address] [place], [address] Potassium [Moles/Vol] 3.4 mmol/L Normal 3.3-5.1 [facility] Comment on above: Order Comment: 215.2 Performed By: #### L 500.4050, L100.0500 ####[facility] [address] [place], [address] Sodium [Moles/Vol] 140 mmol/L Normal 133-145 [facility] Comment on above: Order Comment: 215.2 Performed By: #### L 500.4050, L100.0500 ####[facility] [address] [place], [address] T PROT 5.4 g/dL Low 5.9-8.4 [facility] Comment on above: Order Comment: 215.2 Performed By: #### L 500.4050, L100.0500 ####[facility] [address] [place], [address] Urea nitrogen [Mass/Vol] 39 mg/dL High 4-19 [facility] Comment on above: Order Comment: 215.2 Performed By: #### L 500.4050, L100.0500 ####[facility] [address] [place], [address] Basic Metabolic Profile (BMP )on 04-09-2025 BUN/CRE 33.2 RATIO High 10-20 [facility] Comment on above: Order Comment: 215.2 Performed By: #### L 100.0500, L500.2500 ####[facility] [address] [place], [address] Calcium [Mass/Vol] 9.5 mg/dL Normal 7.6-11.0 [facility] Comment on above: Order Comment: 215.2 Performed By: #### L 100.0500, L500.2500 ####[facility] [address] [place], [address] Chloride [Moles/Vol] 105 mmol/L Normal 98-108 [facility] Comment on above: Order Comment: 215.2 Performed By: #### L 100.0500, L500.2500 ####[facility] [address] [place], [address] CO2 [Moles/Vol] 24.7 mmol/L Normal 21.0-32.0 [facility] Comment on above: Order Comment: 215.2 Performed By: #### L 100.0500, L500.2500 ####[facility] [address] [place], [address] Creatinine [Mass/Vol] 1.30 mg/dL High 0.70-1.20 [facility] Comment on above: Order Comment: 215.2 Performed By: #### L 100.0500, L500.2500 ####[facility] [address] [place], [address] GAP 12 Normal 5-15 [facility] Comment on above: Order Comment: 215.2 Performed By: #### L 100.0500, L500.2500 ####[facility] [address] [place], [address] GFR/1.73 sq M.predicted among non-blacks MDRD (S/P/Bld) [Vol rate/Area] 57 mL/min/{1.73_m2} Low >60 [facility] Comment on above: Order Comment: 215.2 Result Comment: mL/m in/1.73m2 CKD-EPI Creatinine Equation (2020) Performed By: #### L 100.0500, L500.2500 ####[facility] [address] [place], [address] Glucose [Mass/Vol] 119 mg/dL High 70-99 [facility] Comment on above: Order Comment: 215.2 Performed By: #### L 100.0500, L500.2500 ####[facility] [address] [place], [address] Potassium [Moles/Vol] 3.6 mmol/L Normal 3.3-5.1 [facility] Comment on above: Order Comment: 215.2 Result Comment: Hemo lysis present, Results??could be affected.?? Performed By: #### L 100.0500, L500.2500 ####[facility] [address] [place], [address] Sodium [Moles/Vol] 141 mmol/L Normal 133-145 [facility] Comment on above: Order Comment: 215.2 Performed By: #### L 100.0500, L500.2500 ####[facility] [address] [place], [address] Urea nitrogen [Mass/Vol] 43 mg/dL High 4-19 [facility] Comment on above: Order Comment: 215.2 Performed By: #### L 100.0500, L500.2500 ####[facility] [address] [place], [address] CBC-Complete Blood Cnt No Di ffon 04-09-2025 Erythrocyte distribution width (RBC) [Ratio] 13.6 % Normal 11.6-14.6 [facility] Comment on above: Order Comment: 215.2 Performed By: #### L 100.0500, L500.2500 ####[facility] [address] [place], [address] Hematocrit (Bld) [Volume fraction] 35.6 % Low 40-54 [facility] Comment on above: Order Comment: 215.2 Performed By: #### L 100.0500, L500.2500 ####[facility] [address] [place], [address] Hemoglobin (Bld) [Mass/Vol] 11.8 g/dL Low 13.0-16. 5 [facility] Comment on above: Order Comment: 215.2 Performed By: #### L 100.0500, L500.2500 ####[facility] [address] [place], [address] MCH (RBC) [Entitic mass] 28.0 pg Normal 27.0-32.0 [facility] Comment on above: Order Comment: 215.2 Performed By: #### L 100.0500, L500.2500 ####[facility] [address] [place], [address] MCHC (RBC) [Mass/Vol] 33.1 g/dL Normal 32-36 [facility] Comment on above: Order Comment: 215.2 Performed By: #### L 100.0500, L500.2500 ####[facility] [address] [place], [address] MCV (RBC) [Entitic vol] 84.4 fL Normal 80-94 [facility] Comment on above: Order Comment: 215.2 Performed By: #### L 100.0500, L500.2500 ####[facility] [address] [place], [address] Platelet mean volume (Bld) [Entitic vol] 9.4 fL Normal 6.2-12.0 [facility] Comment on above: Order Comment: 215.2 Performed By: #### L 100.0500, L500.2500 ####[facility] [address] [place], [address] Platelets (Bld) [#/Vol] 222 10*3/uL Normal 150-450 [facility] Comment on above: Order Comment: 215.2 Performed By: #### L 100.0500, L500.2500 ####[facility] [address] [place], [address] RBC (Bld) [#/Vol] 4.22 10*6/uL Low 4.6-6.2 [facility] Comment on above: Order Comment: 215.2 Performed By: #### L 100.0500, L500.2500 ####[facility] [address] [place], [address] RDW SD 41.8 fl Normal 35.1-43.9 [facility] Comment on above: Order Comment: 215.2 Performed By: #### L 100.0500, L500.2500 ####[facility] [address] [place], [address] WBC (Bld) [#/Vol] 10.3 10*3/uL Normal 4.4-11.0 [facility] Comment on above: Order Comment: 215.2 Performed By: #### L 100.0500, L500.2500 ####[facility] [address] [place], [address] Acid Fast Bacillus Cultureon 03-22-2025 [facility] Comment on above: Performed By: #### M 300.2000, M300.3000 ####[facility] [address] [place], [address] [facility] Comment on above: Performed By: #### M 300.2000, M300.3000 ####[facility] [address] [place], [address] Acid Fast Bacillus Smear/Flu oron 03-22-2025 tafb [facility] Comment on above: Performed By: #### M 300.2000, M300.3000 ####[facility] [address] [place], [address] [facility] Comment on above: Performed By: #### M 300.2000, M300.3000 ####[facility] [address] [place], [address] Cardiology Visit Reporton Cardiology Visit Report Normal [facility] Culture, Fungus 8482on 03-22 CUF [facility] Comment on above: Performed By: #### M 100.3000, M600.2000, M100.2000, M600.2200, M100.4001 ####[facility] [address] [place], [address] CUF [facility] Comment on above: Performed By: #### M 100.3000, M100.2000, M600.2200, M100.4001, M600.2000 ####[facility] [address] [place], [address] Fungus Stain 8136on 03-22-20 25 FUNST [facility] Comment on above: Performed By: #### M 100.3000, M600.2000, M100.2000, M600.2200, M100.4001 ####[facility] [address] [place], [address] FUNST Normal [facility] Comment on above: Performed By: #### M 100.3000, M100.2000, M600.2200, M100.4001, M600.2000 ####[facility] [address] [place], [address] Pacemaker Checkon 03-22-2025 Pacemaker Check Normal [facility] Arterial Doppler ultrasound reportOrdered By: Aneesh Ac on 03-17-2025 Study report [facility] Work Phone: [phone] Arterial study reportOrdered By: Aneesh Ac on 03-17-2025 Noninvasive arteriosclerosis study report [facility] Work Phone: [phone] Anion gap in Serum or Plasma Ordered By: Walter Becker on 03-16-2025 Anion gap [Moles/Vol] 10 mmol/L 5-15 [facility] Ankle Brachial Indexon 03-16 Ankle Brachial Index Normal [facility] BUN/creatinine ratioOrdered By: Walter Becker on 03-16-2025 Urea nitrogen/Creatinine [Mass ratio] 34.7 mg/mg High 10-20 [facility] Bilirubin, totalOrdered By: Walter Becker on 03-16-2025 Bilirubin [Mass/Vol] 0.48 mg/dL 0.00-1.30 [facility] CBC-Complete Blood Cnt No Di ffon 03-16-2025 Erythrocyte distribution width (RBC) [Ratio] 13.8 % Normal 11.6-14.6 [facility] Comment on above: Order Comment: 215.2 Performed By: #### L 100.0500, L500.4050, L501.9985 ####[facility] [address] [place], [address] Hematocrit (Bld) [Volume fraction] 37.1 % Low 40-54 [facility] Comment on above: Order Comment: 215.2 Performed By: #### L 100.0500, L500.4050, L501.9985 ####[facility] [address] [place], [address] Hemoglobin (Bld) [Mass/Vol] 12.0 g/dL Low 13.0-16. 5 [facility] Comment on above: Order Comment: 215.2 Performed By: #### L 100.0500, L500.4050, L501.9985 ####[facility] [address] [place], [address] MCH (RBC) [Entitic mass] 27.6 pg Normal 27.0-32.0 [facility] Comment on above: Order Comment: 215.2 Performed By: #### L 100.0500, L500.4050, L501.9985 ####[facility] [address] [place], [address] MCHC (RBC) [Mass/Vol] 32.3 g/dL Normal 32-36 [facility] Comment on above: Order Comment: 215.2 Performed By: #### L 100.0500, L500.4050, L501.9985 ####[facility] [address] [place], [address] MCV (RBC) [Entitic vol] 85.3 fL Normal 80-94 [facility] Comment on above: Order Comment: 215.2 Performed By: #### L 100.0500, L500.4050, L501.9985 ####[facility] [address] [place], [address] Platelet mean volume (Bld) [Entitic vol] 9.6 fL Normal 6.2-12.0 [facility] Comment on above: Order Comment: 215.2 Performed By: #### L 100.0500, L500.4050, L501.9985 ####[facility] [address] [place], [address] Platelets (Bld) [#/Vol] 207 10*3/uL Normal 150-450 [facility] Comment on above: Order Comment: 215.2 Performed By: #### L 100.0500, L500.4050, L501.9985 ####[facility] [address] [place], [address] RBC (Bld) [#/Vol] 4.35 10*6/uL Low 4.6-6.2 [facility] Comment on above: Order Comment: 215.2 Performed By: #### L 100.0500, L500.4050, L501.9985 ####[facility] [address] [place], [address] RDW SD 43.0 fl Normal 35.1-43.9 [facility] Comment on above: Order Comment: 215.2 Performed By: #### L 100.0500, L500.4050, L501.9985 ####[facility] [address] [place], [address] WBC (Bld) [#/Vol] 9.5 10*3/uL Normal 4.4-11.0 [facility] Comment on above: Order Comment: 215.2 Performed By: #### L 100.0500, L500.4050, L501.9985 ####[facility] [address] [place], [address] Carbon dioxide, total [Moles /volume] in Central venous bloodOrdered By: Walter Becker on 03-16-2025 CO2 [Moles/Vol] 26.3 mmol/L 21.0-32.0 [facility] Chloride assayOrdered By: Horner on 03-16-2025 Chloride [Moles/Vol] 105 mmol/L 98-108 [facility] Comprehensive Metabolic Prof ilon 03-16-2025 Albumin [Mass/Vol] 3.8 g/dL Normal 3.4-4.8 [facility] Comment on above: Order Comment: 215.2 Performed By: #### L 100.0500, L500.4050, L501.9985 ####[facility] [address] [place], [address] Albumin/Globulin [Mass ratio] 1.5 {ratio} Normal 0.9-2.4 [facility] Comment on above: Order Comment: 215.2 Performed By: #### L 100.0500, L500.4050, L501.9985 ####[facility] [address] [place], [address] ALK PHOS 121 U/L Normal 40-129 [facility] Comment on above: Order Comment: 215.2 Performed By: #### L 100.0500, L500.4050, L501.9985 ####[facility] [address] [place], [address] ALT [Catalytic activity/Vol] 15 U/L Normal <=46 [facility] Comment on above: Order Comment: 215.2 Performed By: #### L 100.0500, L500.4050, L501.9985 ####[facility] [address] [place], [address] AST [Catalytic activity/Vol] 9 U/L Normal <=37 [facility] Comment on above: Order Comment: 215.2 Performed By: #### L 100.0500, L500.4050, L501.9985 ####[facility] [address] [place], [address] Bilirubin [Mass/Vol] 0.48 mg/dL Normal 0.00-1.30 [facility] Comment on above: Order Comment: 215.2 Performed By: #### L 100.0500, L500.4050, L501.9985 ####[facility] [address] [place], [address] BUN/CRE 34.7 RATIO High 10-20 [facility] Comment on above: Order Comment: 215.2 Performed By: #### L 100.0500, L500.4050, L501.9985 ####[facility] [address] [place], [address] Calcium [Mass/Vol] 10.0 mg/dL Normal 7.6-11.0 [facility] Comment on above: Order Comment: 215.2 Performed By: #### L 100.0500, L500.4050, L501.9985 ####[facility] [address] [place], [address] Chloride [Moles/Vol] 105 mmol/L Normal 98-108 [facility] Comment on above: Order Comment: 215.2 Performed By: #### L 100.0500, L500.4050, L501.9985 ####[facility] [address] [place], [address] CO2 [Moles/Vol] 26.3 mmol/L Normal 21.0-32.0 [facility] Comment on above: Order Comment: 215.2 Performed By: #### L 100.0500, L500.4050, L501.9985 ####[facility] [address] [place], [address] Creatinine [Mass/Vol] 1.33 mg/dL High 0.70-1.20 [facility] Comment on above: Order Comment: 215.2 Performed By: #### L 100.0500, L500.4050, L501.9985 ####[facility] [address] [place], [address] GAP 10 Normal 5-15 [facility] Comment on above: Order Comment: 215.2 Performed By: #### L 100.0500, L500.4050, L501.9985 ####[facility] [address] [place], [address] GFR/1.73 sq M.predicted among non-blacks MDRD (S/P/Bld) [Vol rate/Area] 55 mL/min/{1.73_m2} Low >60 [facility] Comment on above: Order Comment: 215.2 Result Comment: mL/m in/1.73m2 CKD-EPI Creatinine Equation (2020) Performed By: #### L 100.0500, L500.4050, L501.9985 ####[facility] [address] [place], [address] Globulin (S) [Mass/Vol] 2.5 g/dL Normal 2.2-4.2 [facility] Comment on above: Order Comment: 215.2 Performed By: #### L 100.0500, L500.4050, L501.9985 ####[facility] [address] [place], [address] Glucose [Mass/Vol] 156 mg/dL High 70-99 [facility] Comment on above: Order Comment: 215.2 Performed By: #### L 100.0500, L500.4050, L501.9985 ####[facility] [address] [place], [address] Potassium [Moles/Vol] 4.1 mmol/L Normal 3.3-5.1 [facility] Comment on above: Order Comment: 215.2 Performed By: #### L 100.0500, L500.4050, L501.9985 ####[facility] [address] [place], [address] Sodium [Moles/Vol] 141 mmol/L Normal 133-145 [facility] Comment on above: Order Comment: 215.2 Performed By: #### L 100.0500, L500.4050, L501.9985 ####[facility] [address] [place], [address] T PROT 6.3 g/dL Normal 5.9-8.4 [facility] Comment on above: Order Comment: 215.2 Performed By: #### L 100.0500, L500.4050, L501.9985 ####[facility] [address] [place], [address] Urea nitrogen [Mass/Vol] 46 mg/dL High 4-19 [facility] Comment on above: Order Comment: 215.2 Performed By: #### L 100.0500, L500.4050, L501.9985 ####[facility] [address] [place], [address] Erythrocyte distribution wid th ratioOrdered By: Walter Becker on 03-16-2025 Erythrocyte distribution width (RBC) [Ratio] 13.8 % 11.6-14.6 [facility] Erythrocyte distribution wid th standard deviationOrdered By: Walter Becker on 03-16-2025 Erythrocyte distribution width (RBC) [Ratio] 43.0 fl 35.1-43.9 [facility] Glomerular filtration rate ( GFR) estimation/1.73 sq m using serum, plasma, or whole bOrdered By: Walter Becker on 03-16-2025 GFR/1.73 sq M.predicted among non-blacks MDRD (S/P/Bld) [Vol rate/Area] 55 mL/min/{1.73_m2} Low >60 [facility] Hematocrit Auto (Bld) [Volum e fraction]Ordered By: Walter Becker on 03-16-2025 Hematocrit (Bld) [Volume fraction] 37.1 % Low 40-54 [facility] Hemoglobin A1con 03-16-2025 HbA1c (Bld) [Mass fraction] 6.7 % High <=5.6 [facility] Comment on above: Order Comment: 215.2 Result Comment: Norm al < 5.7 % Prediabetic 5.7 - 6.4 % Diabetic >or= 6.5 % Please note range changes. Performed By: #### L 100.0500, L500.4050, L501.9985 ####[facility] [address] [place], [address] Hemoglobin A1c percentageOrd ered By: Walter Becker on 03-16-2025 HbA1c (Bld) [Mass fraction] 6.7 % High <5.7 [facility] Hemoglobin measurementOrdere d By: Walter Becker on 03-16-2025 Hemoglobin (Bld) [Mass/Vol] 12.0 g/dL Low 13.0-16. 5 [facility] MCV (mean corpuscular volume ) determinationOrdered By: Walter Becker on 03-16-2025 MCV (RBC) [Entitic vol] 85.3 fL 80-94 [facility] Mean corpuscular hemoglobin (MCH) determinationOrdered By: Walter Becker on 03-16-2025 MCH (RBC) [Entitic mass] 27.6 pg 27.0-32.0 [facility] No Panel InformationOrdered By: Walter Becker on 03-16-2025 9 U/L <38 [facility] Platelet countOrdered By: Horner on 03-16-2025 Platelets (Bld) [#/Vol] 207 10*3/uL 150-450 [facility] Potassium measurement (mass/ volume)Ordered By: Walter Becker on 03-16-2025 Potassium (Unsp spec) [Mass/Vol] 4.1 mmol/L 3.3-5.1 [facility] RBC Auto (Bld) [#/Vol]Ordere d By: Walter Becker on 03-16-2025 RBC (Bld) [#/Vol] 4.35 10*6/uL Low 4.6-6.2 [facility] Serum creatinine measurement (mass/volume)Ordered By: Walter Becker on 03-16-2025 Creatinine [Mass/Vol] 1.33 mg/dL High 0.70-1.20 [facility] Serum globulin measurementOr dered By: Walter Becker on 03-16-2025 Globulin (S) [Mass/Vol] 2.5 g/dL 2.2-4.2 [facility] Serum glucose measurement (m ass/volume)Ordered By: Walter Becker on 03-16-2025 Glucose [Mass/Vol] 156 mg/dL High 70-99 [facility] Serum or plasma alanine davis otransferase (ALT) measurementOrdered By: Walter Becker on 03-16-2025 ALT [Catalytic activity/Vol] 15 U/L <47 [facility] Serum or plasma albumin antoine urement (mass/volume)Ordered By: Walter Becker on 03-16-2025 Albumin [Mass/Vol] 3.8 g/dL 3.4-4.8 [facility] Serum or plasma albumin/glob ulin mass ratioOrdered By: Walter Becker on 03-16-2025 Albumin/Globulin [Mass ratio] 1.5 {ratio} 0.9-2.4 [facility] Serum or plasma alkaline marilin sphatase measurementOrdered By: Walter Becker on 03-16-2025 ALP [Catalytic activity/Vol] 121 U/L 40-129 [facility] Serum or plasma calcium antoine urement (mass/volume)Ordered By: Walter Becker on 03-16-2025 Calcium [Mass/Vol] 10.0 mg/dL 7.6-11.0 [facility] Serum or plasma urea nitroge n measurement (mass/volume)Ordered By: Walter Becker on 03-16-2025 Urea nitrogen [Mass/Vol] 46 mg/dL High 4-19 [facility] Sodium levelOrdered By: Walter Becker on 03-16-2025 Sodium [Moles/Vol] 141 mmol/L 133-145 [facility] Total proteinOrdered By: Crystal Becker on 03-16-2025 Protein [Mass/Vol] 6.3 g/dL 5.9-8.4 [facility] US Art Duplex Unilat Lower E xton 03-16-2025 Art Duplex Unilat Lower Ext Normal [facility] White blood cell (WBC) count Ordered By: Walter Becker on 03-16-2025 WBC (Bld) [#/Vol] 9.5 10*3/uL 4.4-11.0 [facility] Culture, Blood (WB)on 2024 CUB Normal [facility] Comment on above: Performed By: #### L 100.0100, L503.6005, L500.4050, M200.1000, L300.4310, L300.3900, M100.636 ####[facility] [address] [place], [address] L509.6001on 03-03-2025 CORTISOL 10.60 ug/dL Normal 6.02-18.40 [facility] Comment on above: Order Comment: 215-2 Performed By: #### L 509.6001, L501.9520, L506.0400, L503.0106 ####[facility] [address] [place], [address] MR/BMS.BVSon 03-03-2025 MR/BMS.BVS Normal [facility] Serum or plasma cortisol hank surement (mass/volume)Ordered By: Walter Becker on 03-03-2025 Cortisol [Mass/Vol] 10.60 ug/dL 6.02-18.40 [facility] T4 Free Directon 03-03-2025 T4 FREE DIRECT 1.60 ng/dL High 0.76-1.46 [facility] Comment on above: Order Comment: 215-2 Performed By: #### L 509.6001, L501.9520, L506.0400, L503.0106 ####[facility] [address] [place], [address] T4 freeOrdered By: Walter glovero on 03-03-2025 Free T4 [Mass/Vol] 1.60 ng/dL High 0.76-1.46 [facility] TSH DL <= 0.005 mIU/L QnOrde red By: Walter Becker on 03-03-2025 TSH Qn 1.180 uIU/mL 0.300-4.20 0 [facility] Thyroid Stim Hormone (TSH)on 03-03-2025 TSH 1.180 uIU/mL Normal 0.300-4.20 0 [facility] Comment on above: Order Comment: 215-2 Performed By: #### L 509.6001, L501.9520, L506.0400, L503.0106 ####[facility] [address] [place], [address] Vitamin B12on 03-03-2025 Cobalamin (Vitamin B12) [Mass/Vol] 522 pg/mL Normal 180-914 [facility] Comment on above: Order Comment: 215-2 Performed By: #### L 509.6001, L501.9520, L506.0400, L503.0106 ####[facility] [address] [place], [address] Vitamin B12 ser/plasOrdered By: Walter Becker on 03-03-2025 Cobalamin (Vitamin B12) [Mass/Vol] 522 pg/mL 180-914 [facility] BC GPC IDon 03-01-2025 GPC ID Normal [facility] Comment on above: Performed By: #### L 100.0100, L503.6005, L500.4050, M200.1000, L300.4310, L300.3900, M100.636 ####[facility] [address] [place], [address] Urine Cultureon 02-28-2025 URC Culture exhibits no growth. Normal [facility] Comment on above: Performed By: #### L 400.0001, M100.2200 ####[facility] [id number] [place], [address] Absolute lymphocyte countOrd ered By: Bennett Troncoso on 02-27-2025 Lymphocytes Auto (Unsp spec) [#/Vol] 1.80 10*3/uL 0.83-4.51 [facility] Activated partial thrombopla stin time (aPTT) in platelet poor plasma by coagulation aOrdered By: Bennett Troncoso on 02-27-2025 aPTT Coag (PPP) [Time] 29.4 s 24.1-36.2 [facility] Anion gap in Serum or Plasma Ordered By: Bennett Troncoso on 02-27-2025 Anion gap [Moles/Vol] 12 mmol/L 5-15 [facility] Automated lymphocyte count a s percentage of total leukocytesOrdered By: Bennett Troncoso on 02-27-2025 Lymphocytes/100 WBC Auto (Unsp spec) 14.2 % Low 19-41 [facility] BUN/creatinine ratioOrdered By: Bennettjanessa Troncoso on 02-27-2025 Urea nitrogen/Creatinine [Mass ratio] 34.0 mg/mg High 10-20 [facility] Basophil percentageOrdered B y: Bennettjanessa Troncoso on 02-27-2025 Basophils/100 WBC (Bld) 0.6 % 0-1 [facility] Bilirubin Test strip Ql (U)O rdered By: Bennett Troncoso on 02-27-2025 Bilirubin Ql (U) Negative Negative [facility] Bilirubin, totalOrdered By: Bennett Troncoso on 02-27-2025 Bilirubin [Mass/Vol] 0.47 mg/dL 0.00-1.30 [facility] Blood cultureOrdered By: Brook janessa Karyna on 02-27-2025 Bacteria identified Cx Nom (Bld) No growth in 5 days. [facility] Bacteria identified Cx Nom (Bld) Negative Abnormal [facility] Brain/Head without Contrasto n 02-27-2025 Brain/Head without Contrast Normal [facility] CBC W/Diff, Automatedon 02-12 Absolute Lymph 1.80 X10 3/uL Normal 0.83-4.51 [facility] Comment on above: Performed By: #### L 100.0100, L503.6005, L500.4050, M200.1000, L300.4310, L300.3900, M100.636 ####[facility] [address] [place], [address] Absolute Neut 9.0 X10 3/uL High 2.0-7.7 [facility] Comment on above: Performed By: #### L 100.0100, L503.6005, L500.4050, M200.1000, L300.4310, L300.3900, M100.636 ####[facility] [address] [place], [address] Basophils/100 WBC (Bld) 0.6 % Normal 0-1 [facility] Comment on above: Performed By: #### L 100.0100, L503.6005, L500.4050, M200.1000, L300.4310, L300.3900, M100.636 ####[facility] [address] [place], [address] Eosinophils/100 WBC (Bld) 7.1 % High 0-5 [facility] Comment on above: Performed By: #### L 100.0100, L503.6005, L500.4050, M200.1000, L300.4310, L300.3900, M100.636 ####[facility] [address] [place], [address] Erythrocyte distribution width (RBC) [Ratio] 13.8 % Normal 11.6-14.6 [facility] Comment on above: Performed By: #### L 100.0100, L503.6005, L500.4050, M200.1000, L300.4310, L300.3900, M100.636 ####[facility] [address] [place], [address] Hematocrit (Bld) [Volume fraction] 38.8 % Low 40-54 [facility] Comment on above: Performed By: #### L 100.0100, L503.6005, L500.4050, M200.1000, L300.4310, L300.3900, M100.636 ####[facility] [address] [place], [address] Hemoglobin (Bld) [Mass/Vol] 12.3 g/dL Low 13.0-16. 5 [facility] Comment on above: Performed By: #### L 100.0100, L503.6005, L500.4050, M200.1000, L300.4310, L300.3900, M100.636 ####[facility] [address] [place], [address] IG% 0.800 Normal 0.0-0.9 [facility] Comment on above: Result Comment: IG% - Immature Granulocytes (promyelocytes, myelocytes andmetamyelocytes) > 1% indicates that a LEFT SHIFT is Present. Performed By: #### L 100.0100, L503.6005, L500.4050, M200.1000, L300.4310, L300.3900, M100.636 ####[facility] [address] [place], [address] Lymphocytes/100 WBC (Bld) 14.2 % Low 19-41 [facility] Comment on above: Performed By: #### L 100.0100, L503.6005, L500.4050, M200.1000, L300.4310, L300.3900, M100.636 ####[facility] [address] [place], [address] MCH (RBC) [Entitic mass] 27.3 pg Normal 27.0-32.0 [facility] Comment on above: Performed By: #### L 100.0100, L503.6005, L500.4050, M200.1000, L300.4310, L300.3900, M100.636 ####[facility] [address] [place], [address] MCHC (RBC) [Mass/Vol] 31.7 g/dL Low 32-36 [facility] Comment on above: Performed By: #### L 100.0100, L503.6005, L500.4050, M200.1000, L300.4310, L300.3900, M100.636 ####[facility] [address] [place], [address] MCV (RBC) [Entitic vol] 86.0 fL Normal 80-94 [facility] Comment on above: Performed By: #### L 100.0100, L503.6005, L500.4050, M200.1000, L300.4310, L300.3900, M100.636 ####[facility] [address] [place], [address] Monocytes/100 WBC (Bld) 6.1 % Normal 0-10 [facility] Comment on above: Performed By: #### L 100.0100, L503.6005, L500.4050, M200.1000, L300.4310, L300.3900, M100.636 ####[facility] [address] [place], [address] Neutrophils/100 WBC (Bld) 71.2 % High 47-70 [facility] Comment on above: Performed By: #### L 100.0100, L503.6005, L500.4050, M200.1000, L300.4310, L300.3900, M100.636 ####[facility] [address] [place], [address] Nucleated RBC (Bld) [#/Vol] 0 10*3/uL Normal 0-5 [facility] Comment on above: Performed By: #### L 100.0100, L503.6005, L500.4050, M200.1000, L300.4310, L300.3900, M100.636 ####[facility] [address] [place], [address] Platelet mean volume (Bld) [Entitic vol] 9.4 fL Normal 6.2-12.0 [facility] Comment on above: Performed By: #### L 100.0100, L503.6005, L500.4050, M200.1000, L300.4310, L300.3900, M100.636 ####[facility] [address] [place], [address] Platelets (Bld) [#/Vol] 234 10*3/uL Normal 150-450 [facility] Comment on above: Performed By: #### L 100.0100, L503.6005, L500.4050, M200.1000, L300.4310, L300.3900, M100.636 ####[facility] [address] [place], [address] RBC (Bld) [#/Vol] 4.51 10*6/uL Low 4.6-6.2 [facility] Comment on above: Performed By: #### L 100.0100, L503.6005, L500.4050, M200.1000, L300.4310, L300.3900, M100.636 ####[facility] [address] [place], [address] RDW SD 42.7 fl Normal 35.1-43.9 [facility] Comment on above: Performed By: #### L 100.0100, L503.6005, L500.4050, M200.1000, L300.4310, L300.3900, M100.636 ####[facility] [address] [place], [address] WBC (Bld) [#/Vol] 12.7 10*3/uL High 4.4-11.0 [facility] Comment on above: Performed By: #### L 100.0100, L503.6005, L500.4050, M200.1000, L300.4310, L300.3900, M100.636 ####[facility] [address] [place], [address] Carbon dioxide, total [Moles /volume] in Central venous bloodOrdered By: Bennett Troncoso on 02-27-2025 CO2 [Moles/Vol] 27.8 mmol/L 21.0-32.0 [facility] Chest PA and Lateralon 02-27 Chest PA and Lateral Normal [facility] Chloride assayOrdered By: Johnny Troncoso on 02-27-2025 Chloride [Moles/Vol] 98 mmol/L 98-108 [facility] Comprehensive Metabolic Prof ilon 02-27-2025 Albumin [Mass/Vol] 3.9 g/dL Normal 3.4-4.8 [facility] Comment on above: Performed By: #### L 100.0100, L503.6005, L500.4050, M200.1000, L300.4310, L300.3900, M100.636 ####[facility] [address] [place], [address] Albumin/Globulin [Mass ratio] 1.4 {ratio} Normal 0.9-2.4 [facility] Comment on above: Performed By: #### L 100.0100, L503.6005, L500.4050, M200.1000, L300.4310, L300.3900, M100.636 ####[facility] [address] [place], [address] ALK PHOS 107 U/L Normal 40-129 [facility] Comment on above: Performed By: #### L 100.0100, L503.6005, L500.4050, M200.1000, L300.4310, L300.3900, M100.636 ####[facility] [address] [place], [address] ALT [Catalytic activity/Vol] 21 U/L Normal <=46 [facility] Comment on above: Performed By: #### L 100.0100, L503.6005, L500.4050, M200.1000, L300.4310, L300.3900, M100.636 ####[facility] [address] [place], [address] AST [Catalytic activity/Vol] 14 U/L Normal <=37 [facility] Comment on above: Performed By: #### L 100.0100, L503.6005, L500.4050, M200.1000, L300.4310, L300.3900, M100.636 ####[facility] [address] [place], [address] Bilirubin [Mass/Vol] 0.47 mg/dL Normal 0.00-1.30 [facility] Comment on above: Performed By: #### L 100.0100, L503.6005, L500.4050, M200.1000, L300.4310, L300.3900, M100.636 ####[facility] [address] [place], [address] BUN/CRE 34.0 RATIO High 10-20 [facility] Comment on above: Performed By: #### L 100.0100, L503.6005, L500.4050, M200.1000, L300.4310, L300.3900, M100.636 ####[facility] [address] [place], [address] Calcium [Mass/Vol] 9.9 mg/dL Normal 7.6-11.0 [facility] Comment on above: Performed By: #### L 100.0100, L503.6005, L500.4050, M200.1000, L300.4310, L300.3900, M100.636 ####[facility] [address] [place], [address] Chloride [Moles/Vol] 98 mmol/L Normal 98-108 [facility] Comment on above: Performed By: #### L 100.0100, L503.6005, L500.4050, M200.1000, L300.4310, L300.3900, M100.636 ####[facility] [address] [place], [address] CO2 [Moles/Vol] 27.8 mmol/L Normal 21.0-32.0 [facility] Comment on above: Performed By: #### L 100.0100, L503.6005, L500.4050, M200.1000, L300.4310, L300.3900, M100.636 ####[facility] [address] [place], [address] Creatinine [Mass/Vol] 1.49 mg/dL High 0.70-1.20 [facility] Comment on above: Performed By: #### L 100.0100, L503.6005, L500.4050, M200.1000, L300.4310, L300.3900, M100.636 ####[facility] [address] [place], [address] ECRCL 54.14 ml/min Normal 50-250 [facility] Comment on above: Performed By: #### L 100.0100, L503.6005, L500.4050, M200.1000, L300.4310, L300.3900, M100.636 ####[facility] [address] [place], [address] GAP 12 Normal 5-15 [facility] Comment on above: Performed By: #### L 100.0100, L503.6005, L500.4050, M200.1000, L300.4310, L300.3900, M100.636 ####[facility] [address] [place], [place], [id number](076) GFR/1.73 sq M.predicted among non-blacks MDRD (S/P/Bld) [Vol rate/Area] 48 mL/min/{1.73_m2} Low >60 [facility] Comment on above: Result Comment: mL/m in/1.73m2 CKD-EPI Creatinine Equation (2020) Performed By: #### L 100.0100, L503.6005, L500.4050, M200.1000, L300.4310, L300.3900, M100.636 ####[facility] [address] [place], [address] Globulin (S) [Mass/Vol] 2.7 g/dL Normal 2.2-4.2 [facility] Comment on above: Performed By: #### L 100.0100, L503.6005, L500.4050, M200.1000, L300.4310, L300.3900, M100.636 ####[facility] [address] [place], [address] Glucose [Mass/Vol] 176 mg/dL High 70-99 [facility] Comment on above: Performed By: #### L 100.0100, L503.6005, L500.4050, M200.1000, L300.4310, L300.3900, M100.636 ####[facility] [address] [place], [address] Potassium [Moles/Vol] 4.2 mmol/L Normal 3.3-5.1 [facility] Comment on above: Performed By: #### L 100.0100, L503.6005, L500.4050, M200.1000, L300.4310, L300.3900, M100.636 ####[facility] [address] [place], [address] Sodium [Moles/Vol] 138 mmol/L Normal 133-145 [facility] Comment on above: Performed By: #### L 100.0100, L503.6005, L500.4050, M200.1000, L300.4310, L300.3900, M100.636 ####[facility] [address] [place], [address] T PROT 6.6 g/dL Normal 5.9-8.4 [facility] Comment on above: Performed By: #### L 100.0100, L503.6005, L500.4050, M200.1000, L300.4310, L300.3900, M100.636 ####[facility] [address] [place], [address] Urea nitrogen [Mass/Vol] 51 mg/dL High 4-19 [facility] Comment on above: Performed By: #### L 100.0100, L503.6005, L500.4050, M200.1000, L300.4310, L300.3900, M100.636 ####[facility] [address] [place], [address] Emergency Department Summary on 02-27-2025 Emergency Department Summary Normal [facility] Eosinophil percentageOrdered By: Bennett Troncoso on 02-27-2025 Eosinophils/100 WBC (Bld) 7.1 % High 0-5 [facility] Erythrocyte distribution wid th ratioOrdered By: Bennett Troncoso on 02-27-2025 Erythrocyte distribution width (RBC) [Ratio] 13.8 % 11.6-14.6 [facility] Erythrocyte distribution wid th standard deviationOrdered By: Bennett Troncoso on 02-27-2025 Erythrocyte distribution width (RBC) [Ratio] 42.7 fl 35.1-43.9 [facility] Foot min 3 Viewson 5 Foot min 3 Views Normal [facility] Glomerular filtration rate ( GFR) estimation/1.73 sq m using serum, plasma, or whole bOrdered By: Bennett Troncoso on 02-27-2025 GFR/1.73 sq M.predicted among non-blacks MDRD (S/P/Bld) [Vol rate/Area] 48 mL/min/{1.73_m2} Low >60 [facility] Hematocrit Auto (Bld) [Volum e fraction]Ordered By: Bennett Troncoso on 02-27-2025 Hematocrit (Bld) [Volume fraction] 38.8 % Low 40-54 [facility] Hemoglobin measurementOrdere d By: Bennett Troncoso on 02-27-2025 Hemoglobin (Bld) [Mass/Vol] 12.3 g/dL Low 13.0-16. 5 [facility] Immature granulocytes/100 WB C Auto (Bld)Ordered By: Bennett Troncoso on 02-27-2025 Immature granulocytes/100 WBC (Bld) 0.800 % 0.0-0.9 [facility] Ketones Test strip Ql (U)Ord ered By: Bennett Troncoso on 02-27-2025 Ketones Ql (U) Negative Negative [facility] Lactic Acidon 02-27-2025 Lactate [Moles/Vol] 1.5 mmol/L Normal 0.0-2.0 [facility] Comment on above: Order Comment: Y Performed By: #### L 100.0100, L503.6005, L500.4050, M200.1000, L300.4310, L300.3900, M100.636 ####[facility] [address] [place], [address] MCV (mean corpuscular volume ) determinationOrdered By: Bennett Troncoso on 02-27-2025 MCV (RBC) [Entitic vol] 86.0 fL 80-94 [facility] Mean corpuscular hemoglobin (MCH) determinationOrdered By: Bennett Troncoso on 02-27-2025 MCH (RBC) [Entitic mass] 27.3 pg 27.0-32.0 [facility] Monocyte percentageOrdered B y: Bennett Troncoso on 02-27-2025 Monocytes/100 WBC (Bld) 6.1 % 0-10 [facility] Mucus LM Ql (Urine sed)Order ed By: Bennett Troncoso on 02-27-2025 Mucus Ql (Urine sed) 0 SEEN /hpf [facility] Neutrophil percentageOrdered By: Bennett Troncoso on 02-27-2025 Neutrophils/100 WBC (Bld) 71.2 % High 47-70 [facility] Nitrite Test strip Ql (U)Ord ered By: Bennett Troncoso on 02-27-2025 Nitrite Ql (U) Negative Negative [facility] No Panel InformationOrdered By: Bennett Troncoso on 02-27-2025 14 U/L <38 [facility] Organism identificationOrder ed By: Bennett Troncoso on 02-27-2025 Microorganism identified Cx Nom (Unsp spec) Negative Abnormal [facility] Partial Thromboplast Timeon 02-27-2025 aPTT Coag (Bld) [Time] 29.4 s Normal 24.1-36.2 [facility] Comment on above: Performed By: #### L 100.0100, L503.6005, L500.4050, M200.1000, L300.4310, L300.3900, M100.636 ####[facility] [address] [place], [place], [id number](042) Platelet countOrdered By: Johnny Troncoso on 02-27-2025 Platelets (Bld) [#/Vol] 234 10*3/uL 150-450 [facility] Potassium measurement (mass/ volume)Ordered By: Bennett Troncoso on 02-27-2025 Potassium (Unsp spec) [Mass/Vol] 4.2 mmol/L 3.3-5.1 [facility] Protein Test strip Ql (U)Ord ered By: Bennett Tronocso on 02-27-2025 Protein Ql (U) 15 mg/dl High Negative [facility] Prothrombin Time w/INRon INR Coag (PPP) [Relative time] 1.2 {INR} Normal [facility] Comment on above: Performed By: #### L 100.0100, L503.6005, L500.4050, M200.1000, L300.4310, L300.3900, M100.636 ####[facility] [address] [place], [address] PT Coag (PPP) [Time] 15.1 s High 11.7-14.9 [facility] Comment on above: Performed By: #### L 100.0100, L503.6005, L500.4050, M200.1000, L300.4310, L300.3900, M100.636 ####[facility] [address] [place], [address] Prothrombin timeOrdered By: Bennett Troncoso on 02-27-2025 PT Coag (PPP) [Time] 15.1 s High 11.7-14.9 [facility] RBC Auto (Bld) [#/Vol]Ordere d By: Bennett Troncoso on 02-27-2025 RBC (Bld) [#/Vol] 4.51 10*6/uL Low 4.6-6.2 [facility] Serum creatinine measurement (mass/volume)Ordered By: Bennett Troncoso on 02-27-2025 Creatinine [Mass/Vol] 1.49 mg/dL High 0.70-1.20 [facility] Serum globulin measurementOr dered By: Bennett Troncoso on 02-27-2025 Globulin (S) [Mass/Vol] 2.7 g/dL 2.2-4.2 [facility] Serum glucose measurement (m ass/volume)Ordered By: Bennett Troncoso on 02-27-2025 Glucose [Mass/Vol] 176 mg/dL High 70-99 [facility] Serum or plasma alanine davis otransferase (ALT) measurementOrdered By: Bennett Troncoso on 02-27-2025 ALT [Catalytic activity/Vol] 21 U/L <47 [facility] Serum or plasma albumin antoine urement (mass/volume)Ordered By: Bennett Troncoso on 02-27-2025 Albumin [Mass/Vol] 3.9 g/dL 3.4-4.8 [facility] Serum or plasma albumin/glob ulin mass ratioOrdered By: Bennett Troncoso on 02-27-2025 Albumin/Globulin [Mass ratio] 1.4 {ratio} 0.9-2.4 [facility] Serum or plasma alkaline marilin sphatase measurementOrdered By: Bennett Troncoso on 02-27-2025 ALP [Catalytic activity/Vol] 107 U/L 40-129 [facility] Serum or plasma calcium antoine urement (mass/volume)Ordered By: Bennett Troncoso on 02-27-2025 Calcium [Mass/Vol] 9.9 mg/dL 7.6-11.0 [facility] Serum or plasma urea nitroge n measurement (mass/volume)Ordered By: Bennett Troncoso on 02-27-2025 Urea nitrogen [Mass/Vol] 51 mg/dL High 4-19 [facility] Sodium levelOrdered By: Teodora Troncoso on 02-27-2025 Sodium [Moles/Vol] 138 mmol/L 133-145 [facility] Squamous epithelial cells de tection in urine sediment by light microscopyOrdered By: Bennett Troncoso on 02-27-2025 Epithelial cells.squamous LM Ql (Urine sed) 0 SEEN /hpf 0-5 [facility] Total proteinOrdered By: Brook Troncoso on 02-27-2025 Protein [Mass/Vol] 6.6 g/dL 5.9-8.4 [facility] Urinalysis, Completeon 02-27 BACTERIA 0 SEEN Normal None Seen [facility] Comment on above: Order Comment: BRIANNA CTOR TO SPECIFY Performed By: #### L 400.0001, M100.2200 ####[facility] [address] [place], [address] EPI,SQUAMOUS 0 SEEN Normal 0-5 [facility] Comment on above: Order Comment: BRIANNA CTOR TO SPECIFY Performed By: #### L 400.0001, M100.2200 ####[facility] [address] [place], [address] Mucus Ql (Urine sed) 0 SEEN Normal [facility] Comment on above: Order Comment: BRIANNA CTOR TO SPECIFY Performed By: #### L 400.0001, M100.2200 ####[facility] [address] [place], [address] RBC 0 SEEN Normal [address] [place] [address] Comment on above: Order Comment: BRIANNA CTOR TO SPECIFY Performed By: #### L 400.0001, M100.2200 ####[facility] [address] [place], [address] WBC 0 SEEN Normal 0-[address] [place] [address] Comment on above: Order Comment: BRIANNA CTOR TO SPECIFY Performed By: #### L 400.0001, M100.2200 ####[facility] [address] [place], [address] Urine clarityOrdered By: Brook Troncoso on 02-27-2025 Clarity (U) Clear Clear [facility] Urine color determinationOrd ered By: Bennett Troncoso on 02-27-2025 Color (U) Straw Yellow [facility] Urine cultureOrdered By: Brook Troncoso on 02-27-2025 Bacteria identified Cx Nom (U) Culture exhibits no growth. [facility] Urine glucose detectionOrder ed By: Bennett Troncoso on 02-27-2025 Glucose Ql (U) Normal mg/dl Normal [facility] Urine leukocyte esterase det ection by dipstickOrdered By: Bennett Troncoso on 02-27-2025 Leukocyte esterase Test strip Ql (U) Negative Negative [facility] Urine pHOrdered By: Bennett rosado on 02-27-2025 pH (U) 6.0 [pH] 5.0 - 8.0 [facility] Urine sediment bacteria coun t by microscopy (number/high power field)Ordered By: Bennett Troncoso on 02-27-2025 Bacteria LM.HPF (Urine sed) [#/Area] 0 /[HPF] None Seen [facility] Urine specific gravity measu rementOrdered By: Bennett Troncoso on 02-27-2025 Specific gravity (U) [Rel density] 1.010 1.002-1.03 0 [facility] Urine urobilinogen measureme ntOrdered By: Bennett Troncoso on 02-27-2025 Urobilinogen Ql (U) Normal mg/dl Normal [facility] White blood cell (WBC) count Ordered By: eBnnett Troncoso on 02-27-2025 WBC (Bld) [#/Vol] 12.7 10*3/uL High 4.4-11.0 [facility] White blood cell countOrdere d By: Bennett Troncoso on 02-27-2025 White blood cell count 0 SEEN /hpf 0-5 [facility] Anion gap in Serum or Plasma Ordered By: Walter Becker on 02-26-2025 Anion gap [Moles/Vol] 11 mmol/L - [facility] BUN/creatinine ratioOrdered By: Walter Becker on 02-26-2025 Urea nitrogen/Creatinine [Mass ratio] 31.6 mg/mg High 10- [facility] Basic Metabolic Profile (BMP )on 02-26-2025 BUN/CRE 31.6 RATIO High - [facility] Comment on above: Order Comment: 215-2 Performed By: #### L 500.2500 ####[facility] [address] [place], [address] Calcium [Mass/Vol] 9.8 mg/dL Normal 7.6-11.0 [facility] Comment on above: Order Comment: 215-2 Performed By: #### L 500.2500 ####[facility] [address] [place], [address] Chloride [Moles/Vol] 101 mmol/L Normal 98-108 [facility] Comment on above: Order Comment: 215-2 Performed By: #### L 500.2500 ####[facility] [address] [place], [address] CO2 [Moles/Vol] 27.9 mmol/L Normal 21.0-32.0 [facility] Comment on above: Order Comment: 215-2 Performed By: #### L 500.2500 ####[facility] [address] [place], [address] Creatinine [Mass/Vol] 1.44 mg/dL High 0.70-1.20 [facility] Comment on above: Order Comment: 215-2 Performed By: #### L 500.2500 ####[facility] [address] [place], [address] GAP 11 Normal 5-15 [facility] Comment on above: Order Comment: 215-2 Performed By: #### L 500.2500 ####[facility] [address] [place], [address] GFR/1.73 sq M.predicted among non-blacks MDRD (S/P/Bld) [Vol rate/Area] 50 mL/min/{1.73_m2} Low >60 [facility] Comment on above: Order Comment: 215-2 Result Comment: mL/m in/1.73m2 CKD-EPI Creatinine Equation (2020) Performed By: #### L 500.2500 ####[facility] [address] [place], [address] Glucose [Mass/Vol] 141 mg/dL High 70-99 [facility] Comment on above: Order Comment: 215-2 Performed By: #### L 500.2500 ####[facility] [address] [place], [address] Potassium [Moles/Vol] 3.7 mmol/L Normal 3.3-5.1 [facility] Comment on above: Order Comment: 215-2 Performed By: #### L 500.2500 ####[facility] [address] [place], [address] Sodium [Moles/Vol] 140 mmol/L Normal 133-145 [facility] Comment on above: Order Comment: 215-2 Performed By: #### L 500.2500 ####[facility] [address] [place], [address] Urea nitrogen [Mass/Vol] 46 mg/dL High 4-19 [facility] Comment on above: Order Comment: 215-2 Performed By: #### L 500.2500 ####[facility] [address] [place], [address] Carbon dioxide, total [Moles /volume] in Central venous bloodOrdered By: Walter Becker on 02-26-2025 CO2 [Moles/Vol] 27.9 mmol/L 21.0-32.0 [facility] Chloride assayOrdered By: Horner on 02-26-2025 Chloride [Moles/Vol] 101 mmol/L 98-108 [facility] Glomerular filtration rate ( GFR) estimation/1.73 sq m using serum, plasma, or whole bOrdered By: Walter Becker on 02-26-2025 GFR/1.73 sq M.predicted among non-blacks MDRD (S/P/Bld) [Vol rate/Area] 50 mL/min/{1.73_m2} Low >60 [facility] Potassium measurement (mass/ volume)Ordered By: Walter Becker on 02-26-2025 Potassium (Unsp spec) [Mass/Vol] 3.7 mmol/L 3.3-5.1 [facility] Serum creatinine measurement (mass/volume)Ordered By: Walter Becker on 02-26-2025 Creatinine [Mass/Vol] 1.44 mg/dL High 0.70-1.20 [facility] Serum glucose measurement (m ass/volume)Ordered By: Walter Becker on 02-26-2025 Glucose [Mass/Vol] 141 mg/dL High 70-99 [facility] Serum or plasma calcium antoine urement (mass/volume)Ordered By: Walter Becker on 02-26-2025 Calcium [Mass/Vol] 9.8 mg/dL 7.6-11.0 [facility] Serum or plasma urea nitroge n measurement (mass/volume)Ordered By: Walter Becker on 02-26-2025 Urea nitrogen [Mass/Vol] 46 mg/dL High 4-19 [facility] Sodium levelOrdered By: Walter Becker on 02-26-2025 Sodium [Moles/Vol] 140 mmol/L 133-145 [facility] Anion gap in Serum or Plasma Ordered By: Walter Becker on 02-25-2025 Anion gap [Moles/Vol] 12 mmol/L - [facility] BUN/creatinine ratioOrdered By: Walter Becker on 02-25-2025 Urea nitrogen/Creatinine [Mass ratio] 30.8 mg/mg High 10- [facility] Basic Metabolic Profile (BMP )on 02-25-2025 BUN/CRE 30.8 RATIO High 05-03 [facility] Comment on above: Order Comment: 215.2 Performed By: #### L 500.2500 ####[facility] [address] [place], [place], [address] Calcium [Mass/Vol] 10.0 mg/dL Normal 7.6-11.0 [facility] Comment on above: Order Comment: 215.2 Performed By: #### L 500.2500 ####[facility] [address] [place], [address] Chloride [Moles/Vol] 100 mmol/L Normal 98-108 [facility] Comment on above: Order Comment: 215.2 Performed By: #### L 500.2500 ####[facility] [address] [place], [address] CO2 [Moles/Vol] 27.9 mmol/L Normal 21.0-32.0 [facility] Comment on above: Order Comment: 215.2 Performed By: #### L 500.2500 ####[facility] [address] [place], [address] Creatinine [Mass/Vol] 1.31 mg/dL High 0.70-1.20 [facility] Comment on above: Order Comment: 215.2 Performed By: #### L 500.2500 ####[facility] [address] [place], [address] GAP 12 Normal 5-15 [facility] Comment on above: Order Comment: 215.2 Performed By: #### L 500.2500 ####[facility] [address] [place], [address] GFR/1.73 sq M.predicted among non-blacks MDRD (S/P/Bld) [Vol rate/Area] 56 mL/min/{1.73_m2} Low >60 [facility] Comment on above: Order Comment: 215.2 Result Comment: mL/m in/1.73m2 CKD-EPI Creatinine Equation (2020) Performed By: #### L 500.2500 ####[facility] [address] [place], [address] Glucose [Mass/Vol] 158 mg/dL High 70-99 [facility] Comment on above: Order Comment: 215.2 Performed By: #### L 500.2500 ####[facility] [address] [place], [address] Potassium [Moles/Vol] 3.8 mmol/L Normal 3.3-5.1 [facility] Comment on above: Order Comment: 215.2 Performed By: #### L 500.2500 ####[facility] [address] [place], [address] Sodium [Moles/Vol] 140 mmol/L Normal 133-145 [facility] Comment on above: Order Comment: 215.2 Performed By: #### L 500.2500 ####[facility] [address] [place], [address] Urea nitrogen [Mass/Vol] 40 mg/dL High 4-19 [facility] Comment on above: Order Comment: 215.2 Performed By: #### L 500.2500 ####[facility] [address] [place], [place], [address] Carbon dioxide, total [Moles /volume] in Central venous bloodOrdered By: Walter Becker on 02-25-2025 CO2 [Moles/Vol] 27.9 mmol/L 21.0-32.0 [facility] Chloride assayOrdered By: Horner on 02-25-2025 Chloride [Moles/Vol] 100 mmol/L 98-108 [facility] Glomerular filtration rate ( GFR) estimation/1.73 sq m using serum, plasma, or whole bOrdered By: Walter Becker on 02-25-2025 GFR/1.73 sq M.predicted among non-blacks MDRD (S/P/Bld) [Vol rate/Area] 56 mL/min/{1.73_m2} Low >60 [facility] Potassium measurement (mass/ volume)Ordered By: Walter Becker on 02-25-2025 Potassium (Unsp spec) [Mass/Vol] 3.8 mmol/L 3.3-5.1 [facility] Serum creatinine measurement (mass/volume)Ordered By: Walter Becker on 02-25-2025 Creatinine [Mass/Vol] 1.31 mg/dL High 0.70-1.20 [facility] Serum glucose measurement (m ass/volume)Ordered By: Walter Becker on 02-25-2025 Glucose [Mass/Vol] 158 mg/dL High 70-99 [facility] Serum or plasma calcium antoine urement (mass/volume)Ordered By: Walter Becker on 02-25-2025 Calcium [Mass/Vol] 10.0 mg/dL 7.6-11.0 [facility] Serum or plasma urea nitroge n measurement (mass/volume)Ordered By: Walter Becker on 02-25-2025 Urea nitrogen [Mass/Vol] 40 mg/dL High 4-19 [facility] Sodium levelOrdered By: Walter Becker on 02-25-2025 Sodium [Moles/Vol] 140 mmol/L 133-145 [facility] Anion gap in Serum or Plasma Ordered By: Walter Becker on 02-22-2025 Anion gap [Moles/Vol] 13 mmol/L 5-15 [facility] BUN/creatinine ratioOrdered By: Walter Becker on 02-22-2025 Urea nitrogen/Creatinine [Mass ratio] 28.7 mg/mg High 10-20 [facility] Basic Metabolic Profile (BMP )on 02-22-2025 BUN/CRE 28.7 RATIO High 10-20 [facility] Comment on above: Order Comment: 215.2 Performed By: #### L 500.2500 ####[facility] [address] [place], [address] Calcium [Mass/Vol] 9.7 mg/dL Normal 7.6-11.0 [facility] Comment on above: Order Comment: 215.2 Performed By: #### L 500.2500 ####[facility] [address] [place], [address] Chloride [Moles/Vol] 100 mmol/L Normal 98-108 [facility] Comment on above: Order Comment: 215.2 Performed By: #### L 500.2500 ####[facility] [address] [place], [address] CO2 [Moles/Vol] 27.5 mmol/L Normal 21.0-32.0 [facility] Comment on above: Order Comment: 215.2 Performed By: #### L 500.2500 ####[facility] [address] [place], [address] Creatinine [Mass/Vol] 1.45 mg/dL High 0.70-1.20 [facility] Comment on above: Order Comment: 215.2 Performed By: #### L 500.2500 ####[facility] [address] [place], [address] GAP 13 Normal 5-15 [facility] Comment on above: Order Comment: 215.2 Performed By: #### L 500.2500 ####[facility] [address] [place], [address] GFR/1.73 sq M.predicted among non-blacks MDRD (S/P/Bld) [Vol rate/Area] 50 mL/min/{1.73_m2} Low >60 [facility] Comment on above: Order Comment: 215.2 Result Comment: mL/m in/1.73m2 CKD-EPI Creatinine Equation (2020) Performed By: #### L 500.2500 ####[facility] [address] [place], [address] Glucose [Mass/Vol] 152 mg/dL High 70-99 [facility] Comment on above: Order Comment: 215.2 Performed By: #### L 500.2500 ####[facility] [address] [place], [address] Potassium [Moles/Vol] 3.5 mmol/L Normal 3.3-5.1 [facility] Comment on above: Order Comment: 215.2 Performed By: #### L 500.2500 ####[facility] [address] [place], [address] Sodium [Moles/Vol] 140 mmol/L Normal 133-145 [facility] Comment on above: Order Comment: 215.2 Performed By: #### L 500.2500 ####[facility] [address] [place], [place], [address] Urea nitrogen [Mass/Vol] 42 mg/dL High 4-19 [facility] Comment on above: Order Comment: 215.2 Performed By: #### L 500.2500 ####[facility] [address] [place], [place], [address] Carbon dioxide, total [Moles /volume] in Central venous bloodOrdered By: Walter Becker on 02-22-2025 CO2 [Moles/Vol] 27.5 mmol/L 21.0-32.0 [facility] Chloride assayOrdered By: Horner on 02-22-2025 Chloride [Moles/Vol] 100 mmol/L 98-108 [facility] Glomerular filtration rate ( GFR) estimation/1.73 sq m using serum, plasma, or whole bOrdered By: Walter Becker on 02-22-2025 GFR/1.73 sq M.predicted among non-blacks MDRD (S/P/Bld) [Vol rate/Area] 50 mL/min/{1.73_m2} Low >60 [facility] Potassium measurement (mass/ volume)Ordered By: Walter Becker on 02-22-2025 Potassium (Unsp spec) [Mass/Vol] 3.5 mmol/L 3.3-5.1 [facility] Serum creatinine measurement (mass/volume)Ordered By: Walter Becker on 02-22-2025 Creatinine [Mass/Vol] 1.45 mg/dL High 0.70-1.20 [facility] Serum glucose measurement (m ass/volume)Ordered By: Walter Becker on 02-22-2025 Glucose [Mass/Vol] 152 mg/dL High 70-99 [facility] Serum or plasma calcium antoine urement (mass/volume)Ordered By: Walter Becker on 02-22-2025 Calcium [Mass/Vol] 9.7 mg/dL 7.6-11.0 [facility] Serum or plasma urea nitroge n measurement (mass/volume)Ordered By: Walter Becker on 02-22-2025 Urea nitrogen [Mass/Vol] 42 mg/dL High 4-19 [facility] Sodium levelOrdered By: Walter Becker on 02-22-2025 Sodium [Moles/Vol] 140 mmol/L 133-145 [facility] Anion gap in Serum or Plasma Ordered By: Walter Becker on 02-18-2025 Anion gap [Moles/Vol] 10 mmol/L 5-15 [facility] BUN/creatinine ratioOrdered By: Walter Becker on 02-18-2025 Urea nitrogen/Creatinine [Mass ratio] 29.0 mg/mg High - [facility] Basic Metabolic Profile (BMP )on 02-18-2025 BUN/CRE 29.0 RATIO High 05-03 [facility] Comment on above: Order Comment: 215-2 Performed By: #### L 500.2500, L100.0500 ####[facility] [address] [place], [address] Calcium [Mass/Vol] 9.0 mg/dL Normal 7.6-11.0 [facility] Comment on above: Order Comment: 215-2 Performed By: #### L 500.2500, L100.0500 ####[facility] [address] [place], [address] Chloride [Moles/Vol] 105 mmol/L Normal 98-108 [facility] Comment on above: Order Comment: 215-2 Performed By: #### L 500.2500, L100.0500 ####[facility] [address] [place], [address] CO2 [Moles/Vol] 27.8 mmol/L Normal 21.0-32.0 [facility] Comment on above: Order Comment: 215-2 Performed By: #### L 500.2500, L100.0500 ####[facility] [address] [place], [address] Creatinine [Mass/Vol] 1.42 mg/dL High 0.70-1.20 [facility] Comment on above: Order Comment: 215-2 Performed By: #### L 500.2500, L100.0500 ####[facility] [address] [place], [address] GAP 10 Normal 5-15 [facility] Comment on above: Order Comment: 215-2 Performed By: #### L 500.2500, L100.0500 ####[facility] [address] [place], [address] GFR/1.73 sq M.predicted among non-blacks MDRD (S/P/Bld) [Vol rate/Area] 51 mL/min/{1.73_m2} Low >60 [facility] Comment on above: Order Comment: 215-2 Result Comment: mL/m in/1.73m2 CKD-EPI Creatinine Equation (2020) Performed By: #### L 500.2500, L100.0500 ####[facility] [address] [place], [address] Glucose [Mass/Vol] 140 mg/dL High 70-99 [facility] Comment on above: Order Comment: 215-2 Performed By: #### L 500.2500, L100.0500 ####[facility] [address] [place], [address] Potassium [Moles/Vol] 4.0 mmol/L Normal 3.3-5.1 [facility] Comment on above: Order Comment: 215-2 Performed By: #### L 500.2500, L100.0500 ####[facility] [address] [place], [address] Sodium [Moles/Vol] 143 mmol/L Normal 133-145 [facility] Comment on above: Order Comment: 215-2 Performed By: #### L 500.2500, L100.0500 ####[facility] [address] [place], [address] Urea nitrogen [Mass/Vol] 41 mg/dL High 4-19 [facility] Comment on above: Order Comment: 215-2 Performed By: #### L 500.2500, L100.0500 ####[facility] [address] [place], [address] CBC-Complete Blood Cnt No Di ffon 02-18-2025 Erythrocyte distribution width (RBC) [Ratio] 13.8 % Normal 11.6-14.6 [facility] Comment on above: Order Comment: 215-2 Performed By: #### L 500.2500, L100.0500 ####[facility] [address] [place], [address] Hematocrit (Bld) [Volume fraction] 30.2 % Low 40-54 [facility] Comment on above: Order Comment: 215-2 Performed By: #### L 500.2500, L100.0500 ####[facility] [address] [place], [address] Hemoglobin (Bld) [Mass/Vol] 9.4 g/dL Low 13.0-16. 5 [facility] Comment on above: Order Comment: 215-2 Performed By: #### L 500.2500, L100.0500 ####[facility] [address] [place], [address] MCH (RBC) [Entitic mass] 27.2 pg Normal 27.0-32.0 [facility] Comment on above: Order Comment: 215-2 Performed By: #### L 500.2500, L100.0500 ####[facility] [address] [place], [address] MCHC (RBC) [Mass/Vol] 31.1 g/dL Low 32-36 [facility] Comment on above: Order Comment: 215-2 Performed By: #### L 500.2500, L100.0500 ####[facility] [address] [place], [address] MCV (RBC) [Entitic vol] 87.3 fL Normal 80-94 [facility] Comment on above: Order Comment: 215-2 Performed By: #### L 500.2500, L100.0500 ####[facility] [address] [place], [address] Platelet mean volume (Bld) [Entitic vol] 9.4 fL Normal 6.2-12.0 [facility] Comment on above: Order Comment: 215-2 Performed By: #### L 500.2500, L100.0500 ####[facility] [address] [place], [address] Platelets (Bld) [#/Vol] 368 10*3/uL Normal 150-450 [facility] Comment on above: Order Comment: 215-2 Performed By: #### L 500.2500, L100.0500 ####[facility] [address] [place], [address] RBC (Bld) [#/Vol] 3.46 10*6/uL Low 4.6-6.2 [facility] Comment on above: Order Comment: 215-2 Performed By: #### L 500.2500, L100.0500 ####[facility] [address] [place], [address] RDW SD 43.8 fl Normal 35.1-43.9 [facility] Comment on above: Order Comment: 215-2 Performed By: #### L 500.2500, L100.0500 ####[facility] [address] [place], [address] WBC (Bld) [#/Vol] 10.0 10*3/uL Normal 4.4-11.0 [facility] Comment on above: Order Comment: 215-2 Performed By: #### L 500.2500, L100.0500 ####[facility] [address] [place], [address] Carbon dioxide, total [Moles /volume] in Central venous bloodOrdered By: Walter Becker on 02-18-2025 CO2 [Moles/Vol] 27.8 mmol/L 21.0-32.0 [facility] Chloride assayOrdered By: Horner on 02-18-2025 Chloride [Moles/Vol] 105 mmol/L 98-108 [facility] Erythrocyte distribution wid th ratioOrdered By: Walter Becker on 02-18-2025 Erythrocyte distribution width (RBC) [Ratio] 13.8 % 11.6-14.6 [facility] Erythrocyte distribution wid th standard deviationOrdered By: Walter Becker on 02-18-2025 Erythrocyte distribution width (RBC) [Ratio] 43.8 fl 35.1-43.9 [facility] Glomerular filtration rate ( GFR) estimation/1.73 sq m using serum, plasma, or whole bOrdered By: Walter Becker on 02-18-2025 GFR/1.73 sq M.predicted among non-blacks MDRD (S/P/Bld) [Vol rate/Area] 51 mL/min/{1.73_m2} Low >60 [facility] Hematocrit Auto (Bld) [Volum e fraction]Ordered By: Walter Becker on 02-18-2025 Hematocrit (Bld) [Volume fraction] 30.2 % Low 40-54 [facility] Hemoglobin measurementOrdere d By: Walter Becker on 02-18-2025 Hemoglobin (Bld) [Mass/Vol] 9.4 g/dL Low 13.0-16. 5 [facility] MCV (mean corpuscular volume ) determinationOrdered By: Walter Becker on 02-18-2025 MCV (RBC) [Entitic vol] 87.3 fL 80-94 [facility] Mean corpuscular hemoglobin (MCH) determinationOrdered By: Walter Becker on 02-18-2025 MCH (RBC) [Entitic mass] 27.2 pg 27.0-32.0 [facility] Platelet countOrdered By: Horner on 02-18-2025 Platelets (Bld) [#/Vol] 368 10*3/uL 150-450 [place] [facility] Potassium measurement (mass/ volume)Ordered By: Walter Becker on 02-18-2025 Potassium (Unsp spec) [Mass/Vol] 4.0 mmol/L 3.3-5.1 [facility] RBC Auto (Bld) [#/Vol]Ordere d By: Walter Becker on 02-18-2025 RBC (Bld) [#/Vol] 3.46 10*6/uL Low 4.6-6.2 [facility] Serum creatinine measurement (mass/volume)Ordered By: Walter Becker on 02-18-2025 Creatinine [Mass/Vol] 1.42 mg/dL High 0.70-1.20 [facility] Serum glucose measurement (m ass/volume)Ordered By: Walter Becker on 02-18-2025 Glucose [Mass/Vol] 140 mg/dL High 70-99 [facility] Serum or plasma calcium antoine urement (mass/volume)Ordered By: Walter Becker on 02-18-2025 Calcium [Mass/Vol] 9.0 mg/dL 7.6-11.0 [facility] Serum or plasma urea nitroge n measurement (mass/volume)Ordered By: Walter Becker on 02-18-2025 Urea nitrogen [Mass/Vol] 41 mg/dL High 4-19 [facility] Sodium levelOrdered By: Walter Becker on 02-18-2025 Sodium [Moles/Vol] 143 mmol/L 133-145 [facility] White blood cell (WBC) count Ordered By: Walter Becker on 02-18-2025 WBC (Bld) [#/Vol] 10.0 10*3/uL 4.4-11.0 [facility] Anion gap in Serum or Plasma Ordered By: Walter Becker on 02-17-2025 Anion gap [Moles/Vol] 12 mmol/L 5-15 [facility] BUN/creatinine ratioOrdered By: Walter Becker on 02-17-2025 Urea nitrogen/Creatinine [Mass ratio] 26.5 mg/mg High 10-20 [facility] Basic Metabolic Profile (BMP )on 02-17-2025 BUN/CRE 26.5 RATIO High 10-20 [facility] Comment on above: Order Comment: 215-2 Performed By: #### L 100.0500, L500.2500 ####[facility] [address] [place], [address] Calcium [Mass/Vol] 9.1 mg/dL Normal 7.6-11.0 [facility] Comment on above: Order Comment: 215-2 Performed By: #### L 100.0500, L500.2500 ####[facility] [address] [place], [address] Chloride [Moles/Vol] 105 mmol/L Normal 98-108 [facility] Comment on above: Order Comment: 215-2 Performed By: #### L 100.0500, L500.2500 ####[facility] [address] [place], [address] CO2 [Moles/Vol] 26.3 mmol/L Normal 21.0-32.0 [facility] Comment on above: Order Comment: 215-2 Performed By: #### L 100.0500, L500.2500 ####[facility] [address] [place], [address] Creatinine [Mass/Vol] 1.48 mg/dL High 0.70-1.20 [facility] Comment on above: Order Comment: 215-2 Performed By: #### L 100.0500, L500.2500 ####[facility] [address] [place], [address] GAP 12 Normal 5-15 [facility] Comment on above: Order Comment: 215-2 Performed By: #### L 100.0500, L500.2500 ####[facility] [address] [place], [address] GFR/1.73 sq M.predicted among non-blacks MDRD (S/P/Bld) [Vol rate/Area] 48 mL/min/{1.73_m2} Low >60 [facility] Comment on above: Order Comment: 215-2 Result Comment: mL/m in/1.73m2 CKD-EPI Creatinine Equation (2020) Performed By: #### L 100.0500, L500.2500 ####[facility] [address] [place], [address] Glucose [Mass/Vol] 132 mg/dL High 70-99 [facility] Comment on above: Order Comment: 215-2 Performed By: #### L 100.0500, L500.2500 ####[facility] [address] [place], [address] Potassium [Moles/Vol] 3.7 mmol/L Normal 3.3-5.1 [facility] Comment on above: Order Comment: 215-2 Performed By: #### L 100.0500, L500.2500 ####[facility] [address] [place], [address] Sodium [Moles/Vol] 143 mmol/L Normal 133-145 [facility] Comment on above: Order Comment: 215-2 Performed By: #### L 100.0500, L500.2500 ####[facility] [address] [place], [address] Urea nitrogen [Mass/Vol] 39 mg/dL High 4-19 [facility] Comment on above: Order Comment: 215-2 Performed By: #### L 100.0500, L500.2500 ####[facility] [address] [place], [address] CBC-Complete Blood Cnt No Di ffon 02-17-2025 Erythrocyte distribution width (RBC) [Ratio] 13.8 % Normal 11.6-14.6 [facility] Comment on above: Order Comment: 215-2 Performed By: #### L 100.0500, L500.2500 ####[facility] [address] [place], [address] Hematocrit (Bld) [Volume fraction] 30.1 % Low 40-54 [facility] Comment on above: Order Comment: 215-2 Performed By: #### L 100.0500, L500.2500 ####[facility] [address] [place], [address] Hemoglobin (Bld) [Mass/Vol] 9.4 g/dL Low 13.0-16. 5 [facility] Comment on above: Order Comment: 215-2 Performed By: #### L 100.0500, L500.2500 ####[facility] [address] [place], [address] MCH (RBC) [Entitic mass] 27.4 pg Normal 27.0-32.0 [facility] Comment on above: Order Comment: 215-2 Performed By: #### L 100.0500, L500.2500 ####[facility] [address] [place], [address] MCHC (RBC) [Mass/Vol] 31.2 g/dL Low 32-36 [facility] Comment on above: Order Comment: 215-2 Performed By: #### L 100.0500, L500.2500 ####[facility] [address] [place], [address] MCV (RBC) [Entitic vol] 87.8 fL Normal 80-94 [facility] Comment on above: Order Comment: 215-2 Performed By: #### L 100.0500, L500.2500 ####[facility] [address] [place], [address] Platelet mean volume (Bld) [Entitic vol] 9.7 fL Normal 6.2-12.0 [facility] Comment on above: Order Comment: 215-2 Performed By: #### L 100.0500, L500.2500 ####[facility] [address] [place], [address] Platelets (Bld) [#/Vol] 385 10*3/uL Normal 150-450 [facility] Comment on above: Order Comment: 215-2 Performed By: #### L 100.0500, L500.2500 ####[facility] [address] [place], [address] RBC (Bld) [#/Vol] 3.43 10*6/uL Low 4.6-6.2 [facility] Comment on above: Order Comment: 215-2 Performed By: #### L 100.0500, L500.2500 ####[facility] [address] [place], [address] RDW SD 44.2 fl High 35.1-43.9 [facility] Comment on above: Order Comment: 215-2 Performed By: #### L 100.0500, L500.2500 ####[facility] [address] [place], [address] WBC (Bld) [#/Vol] 11.3 10*3/uL High 4.4-11.0 [facility] Comment on above: Order Comment: 215-2 Performed By: #### L 100.0500, L500.2500 ####[facility] [address] [place], [address] Carbon dioxide, total [Moles /volume] in Central venous bloodOrdered By: Walter Becker on 02-17-2025 CO2 [Moles/Vol] 26.3 mmol/L 21.0-32.0 [facility] Chloride assayOrdered By: Horner on 02-17-2025 Chloride [Moles/Vol] 105 mmol/L 98-108 [facility] [facility] Erythrocyte distribution wid th ratioOrdered By: Walter Becker on 02-17-2025 Erythrocyte distribution width (RBC) [Ratio] 13.8 % 11.6-14.6 [facility] Erythrocyte distribution wid th standard deviationOrdered By: Walter Becker on 02-17-2025 Erythrocyte distribution width (RBC) [Ratio] 44.2 fl High 35.1-43.9 [facility] Glomerular filtration rate ( GFR) estimation/1.73 sq m using serum, plasma, or whole bOrdered By: Walter Becker on 02-17-2025 GFR/1.73 sq M.predicted among non-blacks MDRD (S/P/Bld) [Vol rate/Area] 48 mL/min/{1.73_m2} Low >60 [facility] Hematocrit Auto (Bld) [Volum e fraction]Ordered By: Walter Becker on 02-17-2025 Hematocrit (Bld) [Volume fraction] 30.1 % Low 40-54 [facility] Hemoglobin measurementOrdere d By: Walter Becker on 02-17-2025 Hemoglobin (Bld) [Mass/Vol] 9.4 g/dL Low 13.0-16. 5 [facility] MCV (mean corpuscular volume ) determinationOrdered By: Walter Becker on 02-17-2025 MCV (RBC) [Entitic vol] 87.8 fL 80-94 [facility] Mean corpuscular hemoglobin (MCH) determinationOrdered By: Walter Becker on 02-17-2025 MCH (RBC) [Entitic mass] 27.4 pg 27.0-32.0 [facility] Platelet countOrdered By: Horner on 02-17-2025 Platelets (Bld) [#/Vol] 385 10*3/uL 150-450 [facility] Potassium measurement (mass/ volume)Ordered By: Walter Becker on 02-17-2025 Potassium (Unsp spec) [Mass/Vol] 3.7 mmol/L 3.3-5.1 [facility] RBC Auto (Bld) [#/Vol]Ordere d By: Walter Becker on 02-17-2025 RBC (Bld) [#/Vol] 3.43 10*6/uL Low 4.6-6.2 [facility] Serum creatinine measurement (mass/volume)Ordered By: Walter Becker on 02-17-2025 Creatinine [Mass/Vol] 1.48 mg/dL High 0.70-1.20 [facility] Serum glucose measurement (m ass/volume)Ordered By: Walter Becker on 02-17-2025 Glucose [Mass/Vol] 132 mg/dL High 70-99 [facility] Serum or plasma calcium antoine urement (mass/volume)Ordered By: Walter Becker on 02-17-2025 Calcium [Mass/Vol] 9.1 mg/dL 7.6-11.0 [facility] Serum or plasma urea nitroge n measurement (mass/volume)Ordered By: Walter Becker on 02-17-2025 Urea nitrogen [Mass/Vol] 39 mg/dL High 4-19 [facility] Sodium levelOrdered By: Walter Becker on 02-17-2025 Sodium [Moles/Vol] 143 mmol/L 133-145 [facility] White blood cell (WBC) count Ordered By: Walter Becker on 02-17-2025 WBC (Bld) [#/Vol] 11.3 10*3/uL High 4.4-11.0 [facility] Anion gap in Serum or Plasma Ordered By: Walter Becker on 02-16-2025 Anion gap [Moles/Vol] 11 mmol/L 5-15 [facility] BUN/creatinine ratioOrdered By: Walter Becker on 02-16-2025 Urea nitrogen/Creatinine [Mass ratio] 25.8 mg/mg High 10-20 [facility] Basic Metabolic Profile (BMP )on 02-16-2025 BUN/CRE 25.8 RATIO High 10-20 [facility] Comment on above: Order Comment: 215.2 Performed By: #### L 500.2500, L100.0500 ####[facility] [address] [place], [address] Calcium [Mass/Vol] 9.0 mg/dL Normal 7.6-11.0 [facility] Comment on above: Order Comment: 215.2 Performed By: #### L 500.2500, L100.0500 ####[facility] [address] [place], [address] Chloride [Moles/Vol] 104 mmol/L Normal 98-108 [facility] Comment on above: Order Comment: 215.2 Performed By: #### L 500.2500, L100.0500 ####[facility] [address] [place], [address] CO2 [Moles/Vol] 26.2 mmol/L Normal 21.0-32.0 [facility] Comment on above: Order Comment: 215.2 Performed By: #### L 500.2500, L100.0500 ####[facility] [address] [place], [address] Creatinine [Mass/Vol] 1.46 mg/dL High 0.70-1.20 [facility] Comment on above: Order Comment: 215.2 Performed By: #### L 500.2500, L100.0500 ####[facility] [address] [place], [address] GAP 11 Normal 5-15 [facility] Comment on above: Order Comment: 215.2 Performed By: #### L 500.2500, L100.0500 ####[facility] [address] [place], [address] GFR/1.73 sq M.predicted among non-blacks MDRD (S/P/Bld) [Vol rate/Area] 49 mL/min/{1.73_m2} Low >60 [facility] Comment on above: Order Comment: 215.2 Result Comment: mL/m in/1.73m2 CKD-EPI Creatinine Equation (2020) Performed By: #### L 500.2500, L100.0500 ####[facility] [address] [place], [address] Glucose [Mass/Vol] 137 mg/dL High 70-99 [facility] Comment on above: Order Comment: 215.2 Performed By: #### L 500.2500, L100.0500 ####[facility] [address] [place], [address] Potassium [Moles/Vol] 3.8 mmol/L Normal 3.3-5.1 [facility] Comment on above: Order Comment: 215.2 Performed By: #### L 500.2500, L100.0500 ####[facility] [address] [place], [address] Sodium [Moles/Vol] 142 mmol/L Normal 133-145 [facility] Comment on above: Order Comment: 215.2 Performed By: #### L 500.2500, L100.0500 ####[facility] [address] [place], [address] Urea nitrogen [Mass/Vol] 38 mg/dL High 4-19 [facility] Comment on above: Order Comment: 215.2 Performed By: #### L 500.2500, L100.0500 ####[facility] [address] [place], [address] CBC-Complete Blood Cnt No Di ffon 02-16-2025 Erythrocyte distribution width (RBC) [Ratio] 13.6 % Normal 11.6-14.6 [facility] Comment on above: Order Comment: 215.2 Performed By: #### L 500.2500, L100.0500 ####[facility] [address] [place], [address] Hematocrit (Bld) [Volume fraction] 29.5 % Low 40-54 [facility] Comment on above: Order Comment: 215.2 Performed By: #### L 500.2500, L100.0500 ####[facility] [address] [place], [address] Hemoglobin (Bld) [Mass/Vol] 9.3 g/dL Low 13.0-16. 5 [facility] Comment on above: Order Comment: 215.2 Performed By: #### L 500.2500, L100.0500 ####[facility] [address] [place], [address] MCH (RBC) [Entitic mass] 27.1 pg Normal 27.0-32.0 [facility] Comment on above: Order Comment: 215.2 Performed By: #### L 500.2500, L100.0500 ####[facility] [address] [place], [address] MCHC (RBC) [Mass/Vol] 31.5 g/dL Low 32-36 [facility] Comment on above: Order Comment: 215.2 Performed By: #### L 500.2500, L100.0500 ####[facility] [address] [place], [address] MCV (RBC) [Entitic vol] 86.0 fL Normal 80-94 [facility] Comment on above: Order Comment: 215.2 Performed By: #### L 500.2500, L100.0500 ####[facility] [address] [place], [address] Platelet mean volume (Bld) [Entitic vol] 9.4 fL Normal 6.2-12.0 [facility] Comment on above: Order Comment: 215.2 Performed By: #### L 500.2500, L100.0500 ####[facility] [address] [place], [address] Platelets (Bld) [#/Vol] 360 10*3/uL Normal 150-450 [facility] Comment on above: Order Comment: 215.2 Performed By: #### L 500.2500, L100.0500 ####[facility] [address] [place], [address] RBC (Bld) [#/Vol] 3.43 10*6/uL Low 4.6-6.2 [facility] Comment on above: Order Comment: 215.2 Performed By: #### L 500.2500, L100.0500 ####[facility] [address] [place], [address] RDW SD 42.7 fl Normal 35.1-43.9 [facility] Comment on above: Order Comment: 215.2 Performed By: #### L 500.2500, L100.0500 ####[facility] [address] [place], [address] WBC (Bld) [#/Vol] 12.5 10*3/uL High 4.4-11.0 [facility] Comment on above: Order Comment: 215.2 Performed By: #### L 500.2500, L100.0500 ####[facility] [address] [place], [address] Carbon dioxide, total [Moles /volume] in Central venous bloodOrdered By: Walter Becker on 02-16-2025 CO2 [Moles/Vol] 26.2 mmol/L 21.0-32.0 [facility] Chloride assayOrdered By: Horner on 02-16-2025 Chloride [Moles/Vol] 104 mmol/L 98-108 [facility] Erythrocyte distribution wid th ratioOrdered By: Walter Becker on 02-16-2025 Erythrocyte distribution width (RBC) [Ratio] 13.6 % 11.6-14.6 [facility] Erythrocyte distribution wid th standard deviationOrdered By: Walter Becker on 02-16-2025 Erythrocyte distribution width (RBC) [Ratio] 42.7 fl 35.1-43.9 [facility] Glomerular filtration rate ( GFR) estimation/1.73 sq m using serum, plasma, or whole bOrdered By: Walter Becker on 02-16-2025 GFR/1.73 sq M.predicted among non-blacks MDRD (S/P/Bld) [Vol rate/Area] 49 mL/min/{1.73_m2} Low >60 [facility] Hematocrit Auto (Bld) [Volum e fraction]Ordered By: Walter Becker on 02-16-2025 Hematocrit (Bld) [Volume fraction] 29.5 % Low 40-54 [facility] Hemoglobin measurementOrdere d By: Walter Becker on 02-16-2025 Hemoglobin (Bld) [Mass/Vol] 9.3 g/dL Low 13.0-16. 5 [facility] MCV (mean corpuscular volume ) determinationOrdered By: Walter Becker on 02-16-2025 MCV (RBC) [Entitic vol] 86.0 fL 80-94 [facility] Mean corpuscular hemoglobin (MCH) determinationOrdered By: Walter Becker on 02-16-2025 MCH (RBC) [Entitic mass] 27.1 pg 27.0-32.0 [facility] Platelet countOrdered By: Horner on 02-16-2025 Platelets (Bld) [#/Vol] 360 10*3/uL 150-450 [facility] Potassium measurement (mass/ volume)Ordered By: Walter Becker on 02-16-2025 Potassium (Unsp spec) [Mass/Vol] 3.8 mmol/L 3.3-5.1 [facility] RBC Auto (Bld) [#/Vol]Ordere d By: Walter Becker on 02-16-2025 RBC (Bld) [#/Vol] 3.43 10*6/uL Low 4.6-6.2 [facility] Serum creatinine measurement (mass/volume)Ordered By: Walter Becker on 02-16-2025 Creatinine [Mass/Vol] 1.46 mg/dL High 0.70-1.20 [facility] Serum glucose measurement (m ass/volume)Ordered By: Walter Becker on 02-16-2025 Glucose [Mass/Vol] 137 mg/dL High 70-99 [facility] Serum or plasma calcium antoine urement (mass/volume)Ordered By: Walter Becker on 02-16-2025 Calcium [Mass/Vol] 9.0 mg/dL 7.6-11.0 [facility] Serum or plasma urea nitroge n measurement (mass/volume)Ordered By: Walter Becker on 02-16-2025 Urea nitrogen [Mass/Vol] 38 mg/dL High 4-19 [facility] Sodium levelOrdered By: Walter Becker on 02-16-2025 Sodium [Moles/Vol] 142 mmol/L 133-145 [facility] White blood cell (WBC) count Ordered By: Walter Becker on 02-16-2025 WBC (Bld) [#/Vol] 12.5 10*3/uL High 4.4-11.0 [facility] Anion gap in Serum or Plasma Ordered By: Walter Becker on 02-15-2025 Anion gap [Moles/Vol] 12 mmol/L 5-15 [facility] Automated blood erythrocyte countOrdered By: Walter Becker on 02-15-2025 RBC (Bld) [#/Vol] 3.38 10*6/uL Low 4.6-6.2 [facility] Comment on above: Order Comment: 215-2 Performed By: #### L 100.0500, L500.2500 ####[facility] [address] [place], [address] Automated blood hematocrit ( percentage)Ordered By: Walter Becker on 02-15-2025 Hematocrit (Bld) [Volume fraction] 29.3 % Low 40-54 [facility] Comment on above: Order Comment: 215-2 Performed By: #### L 100.0500, L500.2500 ####[facility] [address] [place], [address] BUN/creatinine ratioOrdered By: Walter Becker on 02-15-2025 Urea nitrogen/Creatinine [Mass ratio] 24.7 mg/mg High 10-20 [facility] Basic Metabolic Profile (BMP )on 02-15-2025 BUN/CRE 24.7 RATIO High 10-20 [facility] Comment on above: Order Comment: 215-2 Performed By: #### L 100.0500, L500.2500 ####[facility] [address] [place], [address] Calcium [Mass/Vol] 9.0 mg/dL Normal 7.6-11.0 [facility] Comment on above: Order Comment: 215-2 Performed By: #### L 100.0500, L500.2500 ####[facility] [address] [place], [address] Chloride [Moles/Vol] 105 mmol/L Normal 98-108 [facility] Comment on above: Order Comment: 215-2 Performed By: #### L 100.0500, L500.2500 ####[facility] [address] [place], [address] CO2 [Moles/Vol] 24.2 mmol/L Normal 21.0-32.0 [facility] Comment on above: Order Comment: 215-2 Performed By: #### L 100.0500, L500.2500 ####[facility] [address] [place], [address] Creatinine [Mass/Vol] 1.46 mg/dL High 0.70-1.20 [facility] Comment on above: Order Comment: 215-2 Performed By: #### L 100.0500, L500.2500 ####[facility] [address] [place], [address] GAP 12 Normal 5-15 [facility] Comment on above: Order Comment: 215-2 Performed By: #### L 100.0500, L500.2500 ####[facility] [address] [place], [address] GFR/1.73 sq M.predicted among non-blacks MDRD (S/P/Bld) [Vol rate/Area] 49 mL/min/{1.73_m2} Low >60 [facility] Comment on above: Order Comment: 215-2 Result Comment: mL/m in/1.73m2 CKD-EPI Creatinine Equation (2020) Performed By: #### L 100.0500, L500.2500 ####[facility] [address] [place], [address] Glucose [Mass/Vol] 116 mg/dL High 70-99 [facility] Comment on above: Order Comment: 215-2 Performed By: #### L 100.0500, L500.2500 ####[facility] [address] [place], [address] Potassium [Moles/Vol] 3.7 mmol/L Normal 3.3-5.1 [facility] Comment on above: Order Comment: 215-2 Performed By: #### L 100.0500, L500.2500 ####[facility] [address] [place], [address] Sodium [Moles/Vol] 141 mmol/L Normal 133-145 [facility] Comment on above: Order Comment: 215-2 Performed By: #### L 100.0500, L500.2500 ####[facility] [address] [place], [address] Urea nitrogen [Mass/Vol] 36 mg/dL High 4-19 [facility] Comment on above: Order Comment: 215-2 Performed By: #### L 100.0500, L500.2500 ####[facility] [address] [place], [address] CBC-Complete Blood Cnt No Di ffon 02-15-2025 MCHC (RBC) [Mass/Vol] 31.7 g/dL Low 32-36 [facility] Comment on above: Order Comment: 215-2 Performed By: #### L 100.0500, L500.2500 ####[facility] [address] [place], [address] Platelet mean volume (Bld) [Entitic vol] 9.6 fL Normal 6.2-12.0 [facility] Comment on above: Order Comment: 215-2 Performed By: #### L 100.0500, L500.2500 ####[facility] [address] [place], [address] RDW SD 42.6 fl Normal 35.1-43.9 [facility] Comment on above: Order Comment: 215-2 Performed By: #### L 100.0500, L500.2500 ####[facility] [address] [place], [place], [id number] Carbon dioxide, total [Moles /volume] in Central venous bloodOrdered By: Walter Becker on 02-15-2025 CO2 [Moles/Vol] 24.2 mmol/L 21.0-32.0 [facility] Chloride assayOrdered By: Horner on 02-15-2025 Chloride [Moles/Vol] 105 mmol/L 98-108 [facility] Erythrocyte distribution wid th ratioOrdered By: Walter Becker on 02-15-2025 Erythrocyte distribution width (RBC) [Ratio] 13.4 % Normal 11.6-14.6 [facility] Comment on above: Order Comment: 215-2 Performed By: #### L 100.0500, L500.2500 ####[facility] [address] [place], [place], [id number] Erythrocyte distribution wid th standard deviationOrdered By: Walter Becker on 02-15-2025 Erythrocyte distribution width (RBC) [Ratio] 42.6 fl 35.1-43.9 [facility] Glomerular filtration rate ( GFR) estimation/1.73 sq m using serum, plasma, or whole bOrdered By: Walter Becker on 02-15-2025 GFR/1.73 sq M.predicted among non-blacks MDRD (S/P/Bld) [Vol rate/Area] 49 mL/min/{1.73_m2} Low >60 [facility] Hemoglobin measurementOrdere d By: Walter Becker on 02-15-2025 Hemoglobin (Bld) [Mass/Vol] 9.3 g/dL Low 13.0-16. 5 [facility] Comment on above: Order Comment: 215-2 Performed By: #### L 100.0500, L500.2500 ####[facility] [address] [place], [place], [id number] MCV (mean corpuscular volume ) determinationOrdered By: Walter Becker on 02-15-2025 MCV (RBC) [Entitic vol] 86.7 fL Normal 80-94 [facility] Comment on above: Order Comment: 215-2 Performed By: #### L 100.0500, L500.2500 ####[facility] [address] [place], [address] Mean corpuscular hemoglobin (MCH) determinationOrdered By: Walter Becker on 02-15-2025 MCH (RBC) [Entitic mass] 27.5 pg Normal 27.0-32.0 [facility] Comment on above: Order Comment: 215-2 Performed By: #### L 100.0500, L500.2500 ####[facility] [address] [place], [address] Platelet countOrdered By: Horner on 02-15-2025 Platelets (Bld) [#/Vol] 361 10*3/uL Normal 150-450 [facility] Comment on above: Order Comment: 215-2 Performed By: #### L 100.0500, L500.2500 ####[facility] [address] [place], [address] Potassium measurement (mass/ volume)Ordered By: Walter Becker on 02-15-2025 Potassium (Unsp spec) [Mass/Vol] 3.7 mmol/L 3.3-5.1 [facility] Serum creatinine measurement (mass/volume)Ordered By: Walter Becker on 02-15-2025 Creatinine [Mass/Vol] 1.46 mg/dL High 0.70-1.20 [facility] Serum glucose measurement (m ass/volume)Ordered By: Walter Becker on 02-15-2025 Glucose [Mass/Vol] 116 mg/dL High 70-99 [facility] Serum or plasma calcium antoine urement (mass/volume)Ordered By: Walter Becker on 02-15-2025 Calcium [Mass/Vol] 9.0 mg/dL 7.6-11.0 [facility] Serum or plasma urea nitroge n measurement (mass/volume)Ordered By: Walter Becker on 02-15-2025 Urea nitrogen [Mass/Vol] 36 mg/dL High 4-19 [facility] Sodium levelOrdered By: Walter Becker on 02-15-2025 Sodium [Moles/Vol] 141 mmol/L 133-145 [facility] White blood cell (WBC) count Ordered By: Walter Becker on 02-15-2025 WBC (Bld) [#/Vol] 11.7 10*3/uL High 4.4-11.0 [facility] Comment on above: Order Comment: 215-2 Performed By: #### L 100.0500, L500.2500 ####[facility] [address] [place], [place], [address] Absolute lymphocyte countOrd ered By: Hugo Cervantes on 02-11-2025 Lymphocytes Auto (Unsp spec) [#/Vol] 1.12 10*3/uL 0.83-4.51 [facility] Anion gap in Serum or Plasma Ordered By: Hugo Cervantes on 02-11-2025 Anion gap [Moles/Vol] 14 mmol/L 5-15 [facility] Automated lymphocyte count a s percentage of total leukocytesOrdered By: Hugo Cervantes on 02-11-2025 Lymphocytes/100 WBC Auto (Unsp spec) 9.9 % Low 19-41 [facility] BUN/creatinine ratioOrdered By: Hugo Cervantes on 02-11-2025 Urea nitrogen/Creatinine [Mass ratio] 15.3 mg/mg 10- [facility] Basic Metabolic Profile (BMP )on 02-11-2025 BUN/CRE 15.3 RATIO Normal - [facility] Comment on above: Result Comment: NICOL AKHTAR, SPOKE WITH KT Performed By: #### L 100.0100, L500.2500 ####[facility] [address] [place], [place], [id number] Calcium [Mass/Vol] 9.0 mg/dL Normal 7.6-11.0 [facility] Comment on above: Result Comment: NICOL AKHTAR, SPOKE WITH KT Performed By: #### L 100.0100, L500.2500 ####[facility] [address] [place], [address] Chloride [Moles/Vol] 109 mmol/L High 98-108 [facility] Comment on above: Result Comment: NICOL HERMILO, SPOKE WITH KT Performed By: #### L 100.0100, L500.2500 ####[facility] [address] [place], [address] CO2 [Moles/Vol] 22.1 mmol/L Normal 21.0-32.0 [facility] Comment on above: Result Comment: NICOL AKHTAR, SPOKE WITH KT Performed By: #### L 100.0100, L500.2500 ####[facility] [address] [place], [address] Creatinine [Mass/Vol] 1.55 mg/dL High 0.70-1.20 [facility] Comment on above: Result Comment: NICOL AKHTAR, SPOKE WITH KT Performed By: #### L 100.0100, L500.2500 ####[facility] [address] [place], [address] ECRCL 52.57 ml/min Normal 50-250 [facility] Comment on above: Performed By: #### L 100.0100, L500.2500 ####[facility] [address] [place], [address] GAP 14 Normal 5-15 [facility] Comment on above: Result Comment: NICOL AKHTAR, SPOKE WITH KT Performed By: #### L 100.0100, L500.2500 ####[facility] [address] [place], [address] GFR/1.73 sq M.predicted among non-blacks MDRD (S/P/Bld) [Vol rate/Area] 46 mL/min/{1.73_m2} Low >60 [facility] Comment on above: Result Comment: mL/m in/1.73m2 CKD-EPI Creatinine Equation (2020) Performed By: #### L 100.0100, L500.2500 ####[facility] [address] [place], [address] Glucose [Mass/Vol] 155 mg/dL High 70-99 [facility] Comment on above: Result Comment: NICOL AKHTAR, SPOKE WITH KT Performed By: #### L 100.0100, L500.2500 ####[facility] [address] [place], [address] Potassium [Moles/Vol] 3.7 mmol/L Normal 3.3-5.1 [facility] Comment on above: Result Comment: NICOL AKHTAR, SPOKE WITH KT Performed By: #### L 100.0100, L500.2500 ####[facility] [address] [place], [address] Sodium [Moles/Vol] 145 mmol/L Normal 133-145 [facility] Comment on above: Result Comment: NICOL AKHTAR, SPOKE WITH KT Performed By: #### L 100.0100, L500.2500 ####[facility] [address] [place], [address] Urea nitrogen [Mass/Vol] 24 mg/dL High 4-19 [facility] Comment on above: Result Comment: NICOL AKHTAR, SPOKE WITH KT Performed By: #### L 100.0100, L500.2500 ####[facility] [address] [place], [address] Basophil percentageOrdered B y: Hugo Cervantes on 02-11-2025 Basophils/100 WBC (Bld) 0.5 % 0-1 [facility] Bedside Glucoseon 02-11-2025 FINGERSTICK GLU 187 mg/dL High 74-106 [facility] Comment on above: Result Comment: JAZ BRANDON OF PATIENT CARE PER NURSING PROTOCOL Performed By: #### L 501.080 ####[facility] [address] [place], [address] FINGERSTICK GLU 220 mg/dL High 74-106 [facility] Comment on above: Result Comment: JAZ GEMENT OF PATIENT CARE PER NURSING PROTOCOL Performed By: #### L 501.080 ####[facility] [address] [place], [address] FINGERSTICK GLU 137 mg/dL High 74-106 [facility] Comment on above: Result Comment: JAZ GEMENT OF PATIENT CARE PER NURSING PROTOCOL Performed By: #### L 501.080 ####[facility] [address] [place], [address] CBC W/Diff, Automatedon 07-3 -2024 Absolute Lymph 1.12 X10 3/uL Normal 0.83-4.51 [facility] Comment on above: Performed By: #### L 100.0100 ####[facility] [address] [place], [address] Absolute Neut 8.7 X10 3/uL High 2.0-7.7 [facility] Comment on above: Performed By: #### L 100.0100 ####[facility] [address] [place], [address] Basophils/100 WBC (Bld) 0.5 % Normal 0-1 [facility] Comment on above: Performed By: #### L 100.0100 ####[facility] [address] [place], [address] Eosinophils/100 WBC (Bld) 4.1 % Normal 0-5 [facility] Comment on above: Performed By: #### L 100.0100 ####[facility] [address] [place], [address] Erythrocyte distribution width (RBC) [Ratio] 13.7 % Normal 11.6-14.6 [facility] Comment on above: Performed By: #### L 100.0100 ####[facility] [address] [place], [address] Hematocrit (Bld) [Volume fraction] 31.3 % Low 40-54 [facility] Comment on above: Performed By: #### L 100.0100 ####[facility] [address] [place], [address] Hemoglobin (Bld) [Mass/Vol] 9.9 g/dL Low 13.0-16. 5 [facility] Comment on above: Performed By: #### L 100.0100 ####[facility] [address] [place], [address] IG% 2.100 High 0.0-0.9 [facility] Comment on above: Result Comment: IG% - Immature Granulocytes (promyelocytes, myelocytes andmetamyelocytes) > 1% indicates that a LEFT SHIFT is Present. Performed By: #### L 100.0100 ####[facility] [address] [place], [address] Lymphocytes/100 WBC (Bld) 9.9 % Low 19-41 [facility] Comment on above: Performed By: #### L 100.0100 ####[facility] [address] [place], [address] MCH (RBC) [Entitic mass] 27.6 pg Normal 27.0-32.0 [facility] Comment on above: Performed By: #### L 100.0100 ####[facility] [address] [place], [address] MCHC (RBC) [Mass/Vol] 31.6 g/dL Low 32-36 [facility] Comment on above: Performed By: #### L 100.0100 ####[facility] [address] [place], [address] MCV (RBC) [Entitic vol] 87.2 fL Normal 80-94 [facility] Comment on above: Performed By: #### L 100.0100 ####[facility] [address] [place], [address] Monocytes/100 WBC (Bld) 7.1 % Normal 0-10 [facility] Comment on above: Performed By: #### L 100.0100 ####[facility] [address] [place], [address] Neutrophils/100 WBC (Bld) 76.3 % High 47-70 [facility] Comment on above: Performed By: #### L 100.0100 ####[facility] [address] [place], [address] Nucleated RBC (Bld) [#/Vol] 0 10*3/uL Normal 0-5 [facility] Comment on above: Performed By: #### L 100.0100 ####[facility] [address] [place], [address] Platelet mean volume (Bld) [Entitic vol] 9.1 fL Normal 6.2-12.0 [facility] Comment on above: Performed By: #### L 100.0100 ####[facility] [address] [place], [address] Platelets (Bld) [#/Vol] 308 10*3/uL Normal 150-450 [facility] Comment on above: Performed By: #### L 100.0100 ####[facility] [address] [place], [address] RBC (Bld) [#/Vol] 3.59 10*6/uL Low 4.6-6.2 [facility] Comment on above: Performed By: #### L 100.0100 ####[facility] [address] [place], [address] RDW SD 44.1 fl High 35.1-43.9 [facility] Comment on above: Performed By: #### L 100.0100 ####[facility] [address] [place], [address] WBC (Bld) [#/Vol] 11.3 10*3/uL High 4.4-11.0 [facility] Comment on above: Performed By: #### L 100.0100 ####[facility] [address] [place], [address] Absolute Neut Normal 2.0-7.7 [facility] Comment on above: Result Comment: DUPL ICATE Performed By: #### L 100.0100, L500.2500 ####[facility] [address] [place], [address] HCT Normal 40-54 [facility] Comment on above: Result Comment: DUPL ICATE Performed By: #### L 100.0100, L500.2500 ####[facility] [address] [place], [address] HGB Normal 13.0-16.5 [facility] Comment on above: Result Comment: DUPL ICATE Performed By: #### L 100.0100, L500.2500 ####[facility] [address] [place], [address] MCH Normal 27.0-32.0 [facility] Comment on above: Result Comment: DUPL ICATE Performed By: #### L 100.0100, L500.2500 ####[facility] [address] [place], [address] MCHC Normal 32-36 [facility] Comment on above: Result Comment: DUPL ICATE Performed By: #### L 100.0100, L500.2500 ####[facility] [address] [place], [address] MCV Normal 80-94 [facility] Comment on above: Result Comment: DUPL ICATE Performed By: #### L 100.0100, L500.2500 ####[facility] [address] [place], [address] NEUT% Normal 47-70 [facility] Comment on above: Result Comment: DUPL ICATE Performed By: #### L 100.0100, L500.2500 ####[facility] [address] [place], [address] PLT Normal 150-450 [facility] Comment on above: Result Comment: DUPL ICATE Performed By: #### L 100.0100, L500.2500 ####[facility] [address] [place], [address] RBC Normal 4.6-6.2 [facility] Comment on above: Result Comment: DUPL ICATE Performed By: #### L 100.0100, L500.2500 ####[facility] [address] [place], [address] RDW CV Normal 11.6-14.6 [facility] Comment on above: Result Comment: DUPL ICATE Performed By: #### L 100.0100, L500.2500 ####[facility] [address] [place], [address] RDW SD Normal 35.1-43.9 [facility] Comment on above: Result Comment: DUPL ICATE Performed By: #### L 100.0100, L500.2500 ####[facility] [address] [place], [address] WBC Normal 4.4-11.0 [facility] Comment on above: Result Comment: DUPL ICATE Performed By: #### L 100.0100, L500.2500 ####[facility] [address] [place], [address] Carbon dioxide, total [Moles /volume] in Central venous bloodOrdered By: Hugo Cervantes on 02-11-2025 CO2 [Moles/Vol] 22.1 mmol/L 21.0-32.0 [facility] Chloride assayOrdered By: Shala Cervantes on 02-11-2025 Chloride [Moles/Vol] 109 mmol/L High 98-108 [facility] Electrocardiogram reportOrde red By: Júnior Chandra on 02-11-2025 EKG study [facility] Other Phone: Eosinophil percentageOrdered By: Hugo Cervantes on 02-11-2025 Eosinophils/100 WBC (Bld) 4.1 % 0-5 [facility] Erythrocyte distribution wid th ratioOrdered By: Hugo Cervantes on 02-11-2025 Erythrocyte distribution width (RBC) [Ratio] 13.7 % 11.6-14.6 [facility] Erythrocyte distribution wid th standard deviationOrdered By: Hugo Cervantes on 02-11-2025 Erythrocyte distribution width (RBC) [Ratio] 44.1 fl High 35.1-43.9 [facility] Glomerular filtration rate ( GFR) estimation/1.73 sq m using serum, plasma, or whole bOrdered By: Hugo Cervantes on 02-11-2025 GFR/1.73 sq M.predicted among non-blacks MDRD (S/P/Bld) [Vol rate/Area] 46 mL/min/{1.73_m2} Low >60 [facility] deOrdered By: Hugo Cervantes on 02-11-2025 Glucose [Mass/Vol] 187 mg/dL High 74-106 [facility] Hematocrit Auto (Bld) [Volum e fraction]Ordered By: Hugo Cervantes on 02-11-2025 Hematocrit (Bld) [Volume fraction] 31.3 % Low 40-54 [facility] Hemoglobin measurementOrdere d By: Hugo Cervantes on 02-11-2025 Hemoglobin (Bld) [Mass/Vol] 9.9 g/dL Low 13.0-16. 5 [facility] Immature granulocytes/100 WB C Auto (Bld)Ordered By: Hugo Cervantes on 02-11-2025 Immature granulocytes/100 WBC (Bld) 2.100 % High 0.0-0.9 [facility] MCV (mean corpuscular volume ) determinationOrdered By: Hugo Cervantes on 02-11-2025 MCV (RBC) [Entitic vol] 87.2 fL 80-94 [facility] Mean corpuscular hemoglobin (MCH) determinationOrdered By: Hugo Cervantes on 02-11-2025 MCH (RBC) [Entitic mass] 27.6 pg 27.0-32.0 [facility] Monocyte percentageOrdered B y: Hugo Cervantes on 02-11-2025 Monocytes/100 WBC (Bld) 7.1 % 0-10 [facility] Neutrophil percentageOrdered By: Hugo Cervantes on 02-11-2025 Neutrophils/100 WBC (Bld) 76.3 % High 47-70 [facility] Platelet countOrdered By: Shala Cervantes on 02-11-2025 Platelets (Bld) [#/Vol] 308 10*3/uL 150-450 [facility] Potassium measurement (mass/ volume)Ordered By: Hugo Cervantes on 02-11-2025 Potassium (Unsp spec) [Mass/Vol] 3.7 mmol/L 3.3-5.1 [facility] RBC Auto (Bld) [#/Vol]Ordere d By: Hugo Cervantes on 02-11-2025 RBC (Bld) [#/Vol] 3.59 10*6/uL Low 4.6-6.2 [facility] Serum creatinine measurement (mass/volume)Ordered By: Hugo Cervantes on 02-11-2025 Creatinine [Mass/Vol] 1.55 mg/dL High 0.70-1.20 [facility] Serum glucose measurement (m ass/volume)Ordered By: Hugo Cervantes on 02-11-2025 Glucose [Mass/Vol] 155 mg/dL High 70-99 [facility] Serum or plasma calcium antoine urement (mass/volume)Ordered By: Hugo Cervantes on 02-11-2025 Calcium [Mass/Vol] 9.0 mg/dL 7.6-11.0 [facility] Serum or plasma urea nitroge n measurement (mass/volume)Ordered By: Hugo Cervantes on 02-11-2025 Urea nitrogen [Mass/Vol] 24 mg/dL High 4-19 [facility] Sodium levelOrdered By: Tunde Cervantes on 02-11-2025 Sodium [Moles/Vol] 145 mmol/L 133-145 [facility] White blood cell (WBC) count Ordered By: Hugo Cervantes on 02-11-2025 WBC (Bld) [#/Vol] 11.3 10*3/uL High 4.4-11.0 [facility] 12 Lead EKGon 02-10-2025 12 Lead EKG Normal [facility] ACT Activated Clotting Timeo n 02-10-2025 ACTk CLOT TIME 205 sec High 74-137 [facility] Comment on above: Performed By: #### L 9100.0100 ####[facility] [address] [place], [address] ACTk CLOT TIME 222 sec High 74-137 [facility] Comment on above: Performed By: #### L 9100.0100 ####[facility] [address] [place], [address] AST(SGOT)on 02-10-2025 AST [Catalytic activity/Vol] 15 U/L Normal <=37 [facility] Comment on above: Performed By: #### L 300.4310, L300.3900, L501.4100 ####[facility] [address] [place], [address] Activated partial thrombopla stin time (aPTT) in platelet poor plasma by coagulation aOrdered By: Aneesh Ac on 02-10-2025 aPTT Coag (PPP) [Time] 33.4 s 24.1-36.2 [facility] Alanine Aminotransferas (SGP T)on 02-10-2025 ALT [Catalytic activity/Vol] 31 U/L Normal <=46 [facility] Comment on above: Performed By: #### L 501.4405, L500.2500, L100.0100 ####[facility] [address] [place], [address] Basic Metabolic Profile (BMP )on 02-10-2025 BUN/CRE 16.2 RATIO Normal 10-20 [facility] Comment on above: Performed By: #### L 501.4405, L500.2500, L100.0100 ####[facility] [address] [place], [address] Calcium [Mass/Vol] 9.1 mg/dL Normal 7.6-11.0 [facility] Comment on above: Performed By: #### L 501.4405, L500.2500, L100.0100 ####[facility] [address] [place], [address] Chloride [Moles/Vol] 108 mmol/L Normal 98-108 [facility] Comment on above: Performed By: #### L 501.4405, L500.2500, L100.0100 ####[facility] [address] [place], [address] CO2 [Moles/Vol] 23.0 mmol/L Normal 21.0-32.0 [facility] Comment on above: Performed By: #### L 501.4405, L500.2500, L100.0100 ####[facility] [address] [place], [address] Creatinine [Mass/Vol] 1.72 mg/dL High 0.70-1.20 [facility] Comment on above: Performed By: #### L 501.4405, L500.2500, L100.0100 ####[facility] [address] [place], [address] ECRCL 47.94 ml/min Low 50-250 [facility] Comment on above: Performed By: #### L 501.4405, L500.2500, L100.0100 ####[facility] [address] [place], [address] GAP 12 Normal 5-15 [facility] Comment on above: Performed By: #### L 501.4405, L500.2500, L100.0100 ####[facility] [address] [place], [address] GFR/1.73 sq M.predicted among non-blacks MDRD (S/P/Bld) [Vol rate/Area] 40 mL/min/{1.73_m2} Low >60 [facility] Comment on above: Result Comment: mL/m in/1.73m2 CKD-EPI Creatinine Equation (2020) Performed By: #### L 501.4405, L500.2500, L100.0100 ####[facility] [address] [place], [address] Glucose [Mass/Vol] 161 mg/dL High 70-99 [facility] Comment on above: Performed By: #### L 501.4405, L500.2500, L100.0100 ####[facility] [address] [place], [address] Potassium [Moles/Vol] 3.7 mmol/L Normal 3.3-5.1 [facility] Comment on above: Performed By: #### L 501.4405, L500.2500, L100.0100 ####[facility] [address] [place], [address] Sodium [Moles/Vol] 142 mmol/L Normal 133-145 [facility] Comment on above: Performed By: #### L 501.4405, L500.2500, L100.0100 ####[facility] [address] [place], [address] Urea nitrogen [Mass/Vol] 28 mg/dL High 4-19 [facility] Comment on above: Performed By: #### L 501.4405, L500.2500, L100.0100 ####[facility] [address] [place], [address] Bedside Glucoseon 02-10-2025 FINGERSTICK GLU 135 mg/dL High 74-106 [facility] Comment on above: Result Comment: JAZ GEMENT OF PATIENT CARE PER NURSING PROTOCOL Performed By: #### L 501.080 ####[facility] [address] [place], [address] FINGERSTICK GLU 132 mg/dL High 74-106 [facility] Comment on above: Result Comment: JAZ GEMENT OF PATIENT CARE PER NURSING PROTOCOL Performed By: #### L 501.080 ####[facility] [address] [place], [address] FINGERSTICK GLU 156 mg/dL High 74-106 [facility] Comment on above: Result Comment: JAZ GEMENT OF PATIENT CARE PER NURSING PROTOCOL Performed By: #### L 501.080 ####[facility] [address] [place], [address] FINGERSTICK GLU 156 mg/dL High -106 [facility] Comment on above: Result Comment: JAZ GEMENT OF PATIENT CARE PER NURSING PROTOCOL Performed By: #### L 501.080 ####[facility] [address] [place], [address] FINGERSTICK GLU 153 mg/dL High 74-106 [facility] Comment on above: Result Comment: JAZ GEMENT OF PATIENT CARE PER NURSING PROTOCOL Performed By: #### L 501.080 ####[facility] [address] [place], [address] CBC W/Diff, Automatedon 07-3 Absolute Lymph 1.25 X10 3/uL Normal 0.83-4.51 [facility] Comment on above: Performed By: #### L 501.4405, L500.2500, L100.0100 ####[facility] [address] [place], [address] Absolute Neut 8.3 X10 3/uL High 2.0-7.7 [facility] Comment on above: Performed By: #### L 501.4405, L500.2500, L100.0100 ####[facility] [address] [place], [address] Basophils/100 WBC (Bld) 0.4 % Normal 0-1 [facility] Comment on above: Performed By: #### L 501.4405, L500.2500, L100.0100 ####[facility] [address] [place], [address] Eosinophils/100 WBC (Bld) 4.7 % Normal 0-5 [facility] Comment on above: Performed By: #### L 501.4405, L500.2500, L100.0100 ####[facility] [address] [place], [address] Erythrocyte distribution width (RBC) [Ratio] 13.7 % Normal 11.6-14.6 [facility] Comment on above: Performed By: #### L 501.4405, L500.2500, L100.0100 ####[facility] [address] [place], [address] Hematocrit (Bld) [Volume fraction] 30.5 % Low 40-54 [facility] Comment on above: Performed By: #### L 501.4405, L500.2500, L100.0100 ####[facility] [address] [place], [address] Hemoglobin (Bld) [Mass/Vol] 9.7 g/dL Low 13.0-16. 5 [facility] Comment on above: Performed By: #### L 501.4405, L500.2500, L100.0100 ####[facility] [address] [place], [address] IG% 2.300 High 0.0-0.9 [facility] Comment on above: Result Comment: IG% - Immature Granulocytes (promyelocytes, myelocytes andmetamyelocytes) > 1% indicates that a LEFT SHIFT is Present. Performed By: #### L 501.4405, L500.2500, L100.0100 ####[facility] [address] [place], [address] Lymphocytes/100 WBC (Bld) 11.0 % Low 19-41 [facility] Comment on above: Performed By: #### L 501.4405, L500.2500, L100.0100 ####[facility] [address] [place], [address] MCH (RBC) [Entitic mass] 27.6 pg Normal 27.0-32.0 [facility] Comment on above: Performed By: #### L 501.4405, L500.2500, L100.0100 ####[facility] [address] [place], [address] MCHC (RBC) [Mass/Vol] 31.8 g/dL Low 32-36 [facility] Comment on above: Performed By: #### L 501.4405, L500.2500, L100.0100 ####[facility] [address] [place], [address] MCV (RBC) [Entitic vol] 86.9 fL Normal 80-94 [facility] Comment on above: Performed By: #### L 501.4405, L500.2500, L100.0100 ####[facility] [address] [place], [address] Monocytes/100 WBC (Bld) 8.5 % Normal 0-10 [facility] Comment on above: Performed By: #### L 501.4405, L500.2500, L100.0100 ####[facility] [address] [place], [address] Neutrophils/100 WBC (Bld) 73.1 % High 47-70 [facility] Comment on above: Performed By: #### L 501.4405, L500.2500, L100.0100 ####[facility] [address] [place], [address] Nucleated RBC (Bld) [#/Vol] 0 10*3/uL Normal 0-5 [facility] Comment on above: Performed By: #### L 501.4405, L500.2500, L100.0100 ####[facility] [address] [place], [address] Platelet mean volume (Bld) [Entitic vol] 9.1 fL Normal 6.2-12.0 [facility] Comment on above: Performed By: #### L 501.4405, L500.2500, L100.0100 ####[facility] [address] [place], [address] Platelets (Bld) [#/Vol] 314 10*3/uL Normal 150-450 [facility] Comment on above: Performed By: #### L 501.4405, L500.2500, L100.0100 ####[facility] [address] [place], [address] RBC (Bld) [#/Vol] 3.51 10*6/uL Low 4.6-6.2 [facility] Comment on above: Performed By: #### L 501.4405, L500.2500, L100.0100 ####[facility] [address] [place], [address] RDW SD 43.9 fl Normal 35.1-43.9 [facility] Comment on above: Performed By: #### L 501.4405, L500.2500, L100.0100 ####[facility] [address] [place], [address] WBC (Bld) [#/Vol] 11.4 10*3/uL High 4.4-11.0 [facility] Comment on above: Performed By: #### L 501.4405, L500.2500, L100.0100 ####[facility] [address] [place], [address] Culture, Anaerobic Any Sourc ace 02-10-2025 CUAN UNK UNK Bone 5th left Metatarsal toe No anaerobic bacteria isolated. Normal [facility] Comment on above: Performed By: #### M 100.3000, M100.2000, M600.2200, M100.4001, M600.2000 ####[facility] [address] [place], [address] CUAN UNK UNK Clearance Fragment left 5th metatarsal toe No growth in 5 days. Normal [facility] Comment on above: Performed By: #### M 100.3000, M600.2000, M100.2000, M600.2200, M100.4001 ####[facility] [address] [place], [address] No Panel InformationOrdered By: Aneesh Ac on 02-10-2025 15 U/L <38 [facility] Operative Reporton Operative Report Normal [facility] Partial Thromboplast Timeon 02-10-2025 aPTT Coag (Bld) [Time] 33.4 s Normal 24.1-36.2 [facility] Comment on above: Performed By: #### L 300.4310, L300.3900, L501.4100 ####[facility] [address] [place], [address] Prothrombin Time w/INRon INR Coag (PPP) [Relative time] 1.3 {INR} Normal [facility] Comment on above: Performed By: #### L 300.4310, L300.3900, L501.4100 ####[facility] [address] [place], [address] PT Coag (PPP) [Time] 16.2 s High 11.7-14.9 [facility] Comment on above: Performed By: #### L 300.4310, L300.3900, L501.4100 ####[facility] [address] [place], [address] Prothrombin timeOrdered By: Aneesh Ac on 02-10-2025 PT Coag (PPP) [Time] 16.2 s High 11.7-14.9 [facility] Serum or plasma alanine davis otransferase (ALT) measurementOrdered By: Aneesh Ac on 02-10-2025 ALT [Catalytic activity/Vol] 31 U/L <47 [facility] Surgical pathology reportOrd ered By: Umm Garcia on 02-10-2025 Surgical pathology study [facility] Trough vancomycin levelOrder ed By: Hugo Cervantes on 02-10-2025 Vancomycin trough [Mass/Vol] 16.6 ug/mL High 5.0-15.0 [facility] Vancomycin, Trough Levelon 0 02-10-2025 VANCO, TROUGH 16.6 ug/mL High 5.0-15.0 [facility] Comment on above: Order Comment: Comme nts: Trough to be drawn 30 mins prior to scheduled [id number] Result Comment: Jalen mmended goal trough ranges [...] therapy recommended for serious lifethreatening infections include:- Uxhyhrsifd-Kleeiqytsikb-Upzhuavzf (Ventilator/Healtcare Associated)-SepsisPLEASE CONTACT PHARMACY SERVICES (#[id number]) FOR INTERPRETATIONOF RESULTS. Performed By: #### L 501.8820 ####[facility] [address] [place], [address] Basic Metabolic Profile (BMP )on 02-09-2025 BUN/CRE 14.2 RATIO Normal 10-20 [facility] Comment on above: Performed By: #### L 100.0100, L500.2500 ####[facility] [address] [place], [address] Calcium [Mass/Vol] 9.0 mg/dL Normal 7.6-11.0 [facility] Comment on above: Performed By: #### L 100.0100, L500.2500 ####[facility] [address] [place], [address] Chloride [Moles/Vol] 110 mmol/L High 98-108 [facility] Comment on above: Performed By: #### L 100.0100, L500.2500 ####[facility] [address] [place], [address] CO2 [Moles/Vol] 21.6 mmol/L Normal 21.0-32.0 [facility] Comment on above: Performed By: #### L 100.0100, L500.2500 ####[facility] [address] [place], [address] Creatinine [Mass/Vol] 1.70 mg/dL High 0.70-1.20 [facility] Comment on above: Performed By: #### L 100.0100, L500.2500 ####[facility] [address] [place], [address] ECRCL 61.27 ml/min Normal 50-250 [facility] Comment on above: Performed By: #### L 100.0100, L500.2500 ####[facility] [address] [place], [address] GAP 12 Normal 5-15 [facility] Comment on above: Performed By: #### L 100.0100, L500.2500 ####[facility] [address] [place], [address] GFR/1.73 sq M.predicted among non-blacks MDRD (S/P/Bld) [Vol rate/Area] 41 mL/min/{1.73_m2} Low >60 [facility] Comment on above: Result Comment: mL/m in/1.73m2 CKD-EPI Creatinine Equation (2020) Performed By: #### L 100.0100, L500.2500 ####[facility] [address] [place], [address] Glucose [Mass/Vol] 142 mg/dL High 70-99 [facility] Comment on above: Performed By: #### L 100.0100, L500.2500 ####[facility] [address] [place], [address] Potassium [Moles/Vol] 4.1 mmol/L Normal 3.3-5.1 [facility] Comment on above: Result Comment: Hemo lysis present, Results??could be affected.?? Performed By: #### L 100.0100, L500.2500 ####[facility] [address] [place], [address] Sodium [Moles/Vol] 143 mmol/L Normal 133-145 [facility] Comment on above: Performed By: #### L 100.0100, L500.2500 ####[facility] [address] [place], [address] Urea nitrogen [Mass/Vol] 24 mg/dL High 4-19 [facility] Comment on above: Performed By: #### L 100.0100, L500.2500 ####[facility] [address] [place], [address] Bedside Glucoseon 02-09-2025 FINGERSTICK GLU 140 mg/dL High 74-106 [facility] Comment on above: Result Comment: JAZ GEMENT OF PATIENT CARE PER NURSING PROTOCOL Performed By: #### L 501.080 ####[facility] [address] [place], [address] FINGERSTICK GLU 145 mg/dL High 74-106 [facility] Comment on above: Result Comment: JAZ GEMENT OF PATIENT CARE PER NURSING PROTOCOL Performed By: #### L 501.080 ####[facility] [address] [place], [address] FINGERSTICK GLU 127 mg/dL High 74-106 [facility] Comment on above: Result Comment: JAZ GEMENT OF PATIENT CARE PER NURSING PROTOCOL Performed By: #### L 501.080 ####[facility] [address] [place], [address] Blood polychromasia detectio n by light microscopyOrdered By: Hugo Cervantes on 02-09-2025 Polychromasia LM Ql (Bld) 1+ [facility] CBC W/Diff, Automatedon 01-13 POLYCHROMASIA 1+ Normal [facility] Comment on above: Performed By: #### L 100.0100, L500.2500 ####[facility] [address] [place], [address] Wound Cultureon 02-09-2025 WC Normal [facility] Comment on above: Performed By: #### M 100.3000, M100.2000, M600.2200, M100.4001, M600.2000 ####[facility] [address] [place], [address] Assessment of wrist artery p atency prior to arterial punctureOrdered By: Hugo Cervantes on 02-08-2025 Arterial patency Wrist artery --pre arterial puncture Positive [facility] Basic Metabolic Profile (BMP )on 02-08-2025 BUN/CRE 19.1 RATIO Normal 10-20 [facility] Comment on above: Performed By: #### L 100.0100, L500.2500 ####[facility] [address] [place], [address] Calcium [Mass/Vol] 8.9 mg/dL Normal 7.6-11.0 [facility] Comment on above: Performed By: #### L 100.0100, L500.2500 ####[facility] [address] [place], [address] Chloride [Moles/Vol] 110 mmol/L High 98-108 [facility] Comment on above: Performed By: #### L 100.0100, L500.2500 ####[facility] [address] [place], [address] CO2 [Moles/Vol] 24.2 mmol/L Normal 21.0-32.0 [facility] Comment on above: Performed By: #### L 100.0100, L500.2500 ####[facility] [address] [place], [address] Creatinine [Mass/Vol] 1.71 mg/dL High 0.70-1.20 [facility] Comment on above: Performed By: #### L 100.0100, L500.2500 ####[facility] [address] [place], [address] ECRCL 48.63 ml/min Low 50-250 [facility] Comment on above: Performed By: #### L 100.0100, L500.2500 ####[facility] [address] [place], [address] GAP 9 Normal 5-15 [facility] Comment on above: Performed By: #### L 100.0100, L500.2500 ####[facility] [address] [place], [address] GFR/1.73 sq M.predicted among non-blacks MDRD (S/P/Bld) [Vol rate/Area] 41 mL/min/{1.73_m2} Low >60 [facility] Comment on above: Result Comment: mL/m in/1.73m2 CKD-EPI Creatinine Equation (2020) Performed By: #### L 100.0100, L500.2500 ####[facility] [address] [place], [address] Glucose [Mass/Vol] 156 mg/dL High 70-99 [facility] Comment on above: Performed By: #### L 100.0100, L500.2500 ####[facility] [address] [place], [address] Potassium [Moles/Vol] 3.8 mmol/L Normal 3.3-5.1 [facility] Comment on above: Performed By: #### L 100.0100, L500.2500 ####[facility] [address] [place], [address] Sodium [Moles/Vol] 143 mmol/L Normal 133-145 [facility] Comment on above: Performed By: #### L 100.0100, L500.2500 ####[facility] [address] [place], [address] Urea nitrogen [Mass/Vol] 33 mg/dL High 4-19 [facility] Comment on above: Performed By: #### L 100.0100, L500.2500 ####[facility] [address] [place], [address] Bedside Glucoseon 02-08-2025 FINGERSTICK GLU 135 mg/dL High 74-106 [facility] Comment on above: Result Comment: JAZ BRANDON OF PATIENT CARE PER NURSING PROTOCOL Performed By: #### L 501.080 ####[facility] [address] [place], [address] FINGERSTICK GLU 141 mg/dL High 74-106 [facility] Comment on above: Result Comment: JAZ GEMENT OF PATIENT CARE PER NURSING PROTOCOL Performed By: #### L 501.080 ####[facility] [address] [place], [address] FINGERSTICK GLU 145 mg/dL High 74-106 [facility] Comment on above: Result Comment: JAZ GEMENT OF PATIENT CARE PER NURSING PROTOCOL Performed By: #### L 501.080 ####[facility] [address] [place], [address] Blood Gases by [facility] 025 EUGENIO TEST Positive Normal [facility] Comment on above: Performed By: #### L 9000.0800 ####[facility] [address] [place], [address] Base excess Calc (Bld) [Moles/Vol] 5 mmol/L High -2 to +2 [facility] Comment on above: Performed By: #### L 9000.0800 ####[facility] [address] [place], [address] Blood Gas Type ART Normal [facility] Comment on above: Performed By: #### L 9000.0800 ####[facility] [address] [place], [address] CO2 [Moles/Vol] 30 mmol/L Normal [facility] Comment on above: Performed By: #### L 9000.0800 ####[facility] [address] [place], [address] FI02 2.0 Normal [facility] Comment on above: Performed By: #### L 9000.0800 ####[facility] [address] [place], [address] HCO3 (Bld) [Moles/Vol] 28.8 mmol/L High 22-26 [facility] Comment on above: Performed By: #### L 0.0800 ####[facility] [address] [place], [address] Mode Not entered Normal [facility] Comment on above: Performed By: #### L 9000.0800 ####[facility] [address] [place], [address] O2 Delivery Dev Cannula Normal [facility] Comment on above: Performed By: #### L 9000.0800 ####[facility] [address] [place], [address] pCO2 42.1 mmHg Normal 35-45 [facility] Comment on above: Performed By: #### L 9000.0800 ####[facility] [address] [place], [address] pH (Bld) 7.44 [pH] Normal 7.35-7.45 [facility] Comment on above: Performed By: #### L 9000.0800 ####[facility] [address] [place], [address] PO2 82 mmHG Normal 75-100 [facility] Comment on above: Performed By: #### L 9000.0800 ####[facility] [address] [place], [address] SITE R Radial Normal [facility] Comment on above: Performed By: #### L 9000.0800 ####[facility] [address] [place], [address] SO2 96 Normal 95-99 [facility] Comment on above: Performed By: #### L 9000.0800 ####[facility] [address] [place], [address] Blood base excess determinat ionOrdered By: Hugo Cervantes on 02-08-2025 Base excess Calc (BldV) [Moles/Vol] 5 mmol/L High -2-2 [facility] Blood bicarbonate measuremen tOrdered By: Hugo Cervantes on 02-08-2025 HCO3 (Bld) [Moles/Vol] 28.8 mmol/L High 22-26 [facility] CBC W/Diff, Automatedon 01-13 Absolute Lymph 1.25 X10 3/uL Normal 0.83-4.51 [facility] Comment on above: Performed By: #### L 100.0100, L500.2500 ####[facility] [address] [place], [address] Absolute Neut 7.9 X10 3/uL High 2.0-7.7 [facility] Comment on above: Performed By: #### L 100.0100, L500.2500 ####[facility] [address] [place], [address] Basophils/100 WBC (Bld) 0.3 % Normal 0-1 [facility] Comment on above: Performed By: #### L 100.0100, L500.2500 ####[facility] [address] [place], [address] Eosinophils/100 WBC (Bld) 4.6 % Normal 0-5 [facility] Comment on above: Performed By: #### L 100.0100, L500.2500 ####[facility] [address] [place], [address] Erythrocyte distribution width (RBC) [Ratio] 13.7 % Normal 11.6-14.6 [facility] Comment on above: Performed By: #### L 100.0100, L500.2500 ####[facility] [address] [place], [address] Hematocrit (Bld) [Volume fraction] 29.3 % Low 40-54 [facility] Comment on above: Performed By: #### L 100.0100, L500.2500 ####[facility] [address] [place], [address] Hemoglobin (Bld) [Mass/Vol] 9.6 g/dL Low 13.0-16. 5 [facility] Comment on above: Performed By: #### L 100.0100, L500.2500 ####[facility] [address] [place], [address] IG% 1.400 High 0.0-0.9 [facility] Comment on above: Result Comment: IG% - Immature Granulocytes (promyelocytes, myelocytes andmetamyelocytes) > 1% indicates that a LEFT SHIFT is Present. Performed By: #### L 100.0100, L500.2500 ####[facility] [address] [place], [address] Lymphocytes/100 WBC (Bld) 11.5 % Low 19-41 [facility] Comment on above: Performed By: #### L 100.0100, L500.2500 ####[facility] [address] [place], [address] MCH (RBC) [Entitic mass] 27.8 pg Normal 27.0-32.0 [facility] Comment on above: Performed By: #### L 100.0100, L500.2500 ####[facility] [address] [place], [address] MCHC (RBC) [Mass/Vol] 32.8 g/dL Normal 32-36 [facility] Comment on above: Performed By: #### L 100.0100, L500.2500 ####[facility] [address] [place], [address] MCV (RBC) [Entitic vol] 84.9 fL Normal 80-94 [facility] Comment on above: Performed By: #### L 100.0100, L500.2500 ####[facility] [address] [place], [address] Monocytes/100 WBC (Bld) 9.5 % Normal 0-10 [facility] Comment on above: Performed By: #### L 100.0100, L500.2500 ####[facility] [address] [place], [address] Neutrophils/100 WBC (Bld) 72.7 % High 47-70 [facility] Comment on above: Performed By: #### L 100.0100, L500.2500 ####[facility] [address] [place], [address] Nucleated RBC (Bld) [#/Vol] 0 10*3/uL Normal 0-5 [facility] Comment on above: Performed By: #### L 100.0100, L500.2500 ####[facility] [address] [place], [address] Platelet mean volume (Bld) [Entitic vol] 8.8 fL Normal 6.2-12.0 [facility] Comment on above: Performed By: #### L 100.0100, L500.2500 ####[facility] [address] [place], [address] Platelets (Bld) [#/Vol] 263 10*3/uL Normal 150-450 [facility] Comment on above: Performed By: #### L 100.0100, L500.2500 ####[facility] [address] [place], [address] RBC (Bld) [#/Vol] 3.45 10*6/uL Low 4.6-6.2 [facility] Comment on above: Performed By: #### L 100.0100, L500.2500 ####[facility] [address] [place], [address] RDW SD 42.7 fl Normal 35.1-43.9 [facility] Comment on above: Performed By: #### L 100.0100, L500.2500 ####[facility] [address] [place], [address] WBC (Bld) [#/Vol] 10.9 10*3/uL Normal 4.4-11.0 [facility] Comment on above: Performed By: #### L 100.0100, L500.2500 ####[facility] [address] [place], [address] Consultation - Infectious Dx on 02-08-2025 Consultation - Infectious Dx Normal [facility] Culture, Blood (WB)on 2024 CUB Blood cultures x2, from two different sites No growth in 5 days. Normal [facility] Comment on above: Performed By: #### M 200.1000, L100.0100, L300.3900, L300.4310, L503.6005, L500.4050 ####[facility] [address] [place], [place], [address] Measurement, pHOrdered By: Breonna Cervantes on 02-08-2025 pH (Unsp spec) 7.44 [pH] 7.35-7.45 [facility] No Panel InformationOrdered By: Hugo Cervantes on 02-08-2025 ART [facility] R Radial [facility] Not entered [facility] Cannula [facility] Total carbon dioxide measure mentOrdered By: Hugo Cervantes on 02-08-2025 CO2 [Moles/Vol] 30 mmol/L [facility] Vancomycin, Trough Levelon 0 02-08-2025 VANCO, TROUGH 20.6 ug/mL High 5.0-15.0 [facility] Comment on above: Order Comment: Comme nts: DRAW 30 MIN PRIOR TO [id number] Result Comment: Jalen mmended goal trough ranges [...] therapy recommended for serious lifethreatening infections include:- Rxrapugncz-Ujlnmtnqtlvb-Prqhuozjd (Ventilator/Healtcare Associated)-SepsisPLEASE CONTACT PHARMACY SERVICES (#5807) FOR INTERPRETATIONOF RESULTS. Performed By: #### L 501.8820 ####[facility] [address] [place], [address] Basic Metabolic Profile (BMP )on 02-07-2025 BUN/CRE 22.7 RATIO High 10-20 [facility] Comment on above: Performed By: #### L 100.0100, L500.2500 ####[facility] [address] [place], [address] Calcium [Mass/Vol] 8.7 mg/dL Normal 7.6-11.0 [facility] Comment on above: Performed By: #### L 100.0100, L500.2500 ####[facility] [address] [place], [address] Chloride [Moles/Vol] 109 mmol/L High 98-108 [facility] Comment on above: Performed By: #### L 100.0100, L500.2500 ####[facility] [address] [place], [address] CO2 [Moles/Vol] 22.6 mmol/L Normal 21.0-32.0 [facility] Comment on above: Performed By: #### L 100.0100, L500.2500 ####[facility] [address] [place], [address] Creatinine [Mass/Vol] 1.75 mg/dL High 0.70-1.20 [facility] Comment on above: Performed By: #### L 100.0100, L500.2500 ####[facility] [address] [place], [address] ECRCL 47.38 ml/min Low 50-250 [facility] Comment on above: Performed By: #### L 100.0100, L500.2500 ####[facility] [address] [place], [address] GAP 10 Normal 5-15 [facility] Comment on above: Performed By: #### L 100.0100, L500.2500 ####[facility] [address] [place], [address] GFR/1.73 sq M.predicted among non-blacks MDRD (S/P/Bld) [Vol rate/Area] 40 mL/min/{1.73_m2} Low >60 [facility] Comment on above: Result Comment: mL/m in/1.73m2 CKD-EPI Creatinine Equation (2020) Performed By: #### L 100.0100, L500.2500 ####[facility] [address] [place], [address] Glucose [Mass/Vol] 150 mg/dL High 70-99 [facility] Comment on above: Performed By: #### L 100.0100, L500.2500 ####[facility] [address] [place], [address] Potassium [Moles/Vol] 3.8 mmol/L Normal 3.3-5.1 [facility] Comment on above: Performed By: #### L 100.0100, L500.2500 ####[facility] [address] [place], [address] Sodium [Moles/Vol] 142 mmol/L Normal 133-145 [facility] Comment on above: Performed By: #### L 100.0100, L500.2500 ####[facility] [address] [place], [address] Urea nitrogen [Mass/Vol] 40 mg/dL High 4-19 [facility] Comment on above: Performed By: #### L 100.0100, L500.2500 ####[facility] [address] [place], [address] Bedside Glucoseon 02-07-2025 FINGERSTICK GLU 174 mg/dL High 74-106 [facility] Comment on above: Result Comment: JAZ GEMENT OF PATIENT CARE PER NURSING PROTOCOL Performed By: #### L 501.080 ####[facility] [address] [place], [address] FINGERSTICK GLU 143 mg/dL High 74-106 [facility] Comment on above: Result Comment: JZA GEMENT OF PATIENT CARE PER NURSING PROTOCOL Performed By: #### L 501.080 ####[facility] [address] [place], [address] FINGERSTICK GLU 156 mg/dL High 74-106 [facility] Comment on above: Result Comment: JAZ GEMENT OF PATIENT CARE PER NURSING PROTOCOL Performed By: #### L 501.080 ####[facility] [address] [place], [address] FINGERSTICK GLU 146 mg/dL High [facility]106 [facility] Comment on above: Result Comment: JAZ GEMENT OF PATIENT CARE PER NURSING PROTOCOL Performed By: #### L 501.080 ####[facility] [address] [place], [address] CBC W/Diff, Automatedon - Absolute Lymph 1.37 X10 3/uL Normal 0.83-4.51 [facility] Comment on above: Performed By: #### L 100.0100, L500.2500 ####[facility] [address] [place], [address] Absolute Neut 6.1 X10 3/uL Normal 2.0-7.7 [facility] Comment on above: Performed By: #### L 100.0100, L500.2500 ####[facility] [address] [place], [address] Basophils/100 WBC (Bld) 0.7 % Normal 0-1 [facility] Comment on above: Performed By: #### L 100.0100, L500.2500 ####[facility] [address] [place], [address] Eosinophils/100 WBC (Bld) 6.8 % High 0-5 [facility] Comment on above: Performed By: #### L 100.0100, L500.2500 ####[facility] [address] [place], [address] Erythrocyte distribution width (RBC) [Ratio] 13.6 % Normal 11.6-14.6 [facility] Comment on above: Performed By: #### L 100.0100, L500.2500 ####[facility] [address] [place], [address] Hematocrit (Bld) [Volume fraction] 29.6 % Low 40-54 [facility] Comment on above: Performed By: #### L 100.0100, L500.2500 ####[facility] [address] [place], [address] Hemoglobin (Bld) [Mass/Vol] 9.5 g/dL Low 13.0-16. 5 [facility] Comment on above: Performed By: #### L 100.0100, L500.2500 ####[facility] [address] [place], [address] IG% 1.900 High 0.0-0.9 [facility] Comment on above: Result Comment: IG% - Immature Granulocytes (promyelocytes, myelocytes andmetamyelocytes) > 1% indicates that a LEFT SHIFT is Present. Performed By: #### L 100.0100, L500.2500 ####[facility] [address] [place], [address] Lymphocytes/100 WBC (Bld) 15.0 % Low 19-41 [facility] Comment on above: Performed By: #### L 100.0100, L500.2500 ####[facility] [address] [place], [address] MCH (RBC) [Entitic mass] 27.5 pg Normal 27.0-32.0 [facility] Comment on above: Performed By: #### L 100.0100, L500.2500 ####[facility] [address] [place], [address] MCHC (RBC) [Mass/Vol] 32.1 g/dL Normal 32-36 [facility] Comment on above: Performed By: #### L 100.0100, L500.2500 ####[facility] [address] [place], [address] MCV (RBC) [Entitic vol] 85.5 fL Normal 80-94 [facility] Comment on above: Performed By: #### L 100.0100, L500.2500 ####[facility] [address] [place], [address] Monocytes/100 WBC (Bld) 9.5 % Normal 0-10 [facility] Comment on above: Performed By: #### L 100.0100, L500.2500 ####[facility] [address] [place], [address] Neutrophils/100 WBC (Bld) 66.1 % Normal 47-70 [facility] Comment on above: Performed By: #### L 100.0100, L500.2500 ####[facility] [address] [place], [address] Nucleated RBC (Bld) [#/Vol] 0 10*3/uL Normal 0-5 [facility] Comment on above: Performed By: #### L 100.0100, L500.2500 ####[facility] [address] [place], [address] Platelet mean volume (Bld) [Entitic vol] 9.0 fL Normal 6.2-12.0 [facility] Comment on above: Performed By: #### L 100.0100, L500.2500 ####[facility] [address] [place], [address] Platelets (Bld) [#/Vol] 258 10*3/uL Normal 150-450 [facility] Comment on above: Performed By: #### L 100.0100, L500.2500 ####[facility] [address] [place], [address] RBC (Bld) [#/Vol] 3.46 10*6/uL Low 4.6-6.2 [facility] Comment on above: Performed By: #### L 100.0100, L500.2500 ####[facility] [address] [place], [address] RDW SD 42.4 fl Normal 35.1-43.9 [facility] Comment on above: Performed By: #### L 100.0100, L500.2500 ####[facility] [address] [place], [address] WBC (Bld) [#/Vol] 9.2 10*3/uL Normal 4.4-11.0 [facility] Comment on above: Performed By: #### L 100.0100, L500.2500 ####[facility] [address] [place], [address] Culture, Anaerobic Any [facility] ace 02-07-2025 CUAN ONLY AEROBIC SWAB WA S SENT DRUGS WITH ANAROBES MAYBE INHIBITED. No anaerobic bacteria isolated. Normal [facility] Comment on above: Performed By: #### M 100.4001, L8200.1075, M100.3000, M100.2000 ####[facility] [address] [place], [address] Serum or plasma vancomycin m easurement (mass/volume)Ordered By: Hugo Cervantes on 02-07-2025 Vancomycin [Mass/Vol] 17.6 ug/mL High 0.0-15.0 [facility] Vancomycin, Random Levelon 0 02-07-2025 VANCO, RANDOM 17.6 ug/mL High 0.0-15.0 [facility] Comment on above: Result Comment: VANC OMYCIN STANDARD DRUG THERAPY: CRITICAL VALUE IS > 15.0 mg/LVANCOMYCIN HIGH INTENSITY THERAPY: CRITICAL VALUE IS > 20.0 mg/LPLEASE CONTACT PHARMACY SERVICES (#8767) FOR INTERPRETATIONOF RESULTS. THIS RESULT DOES NOT REPRESENT A PEAK OR TROUGHLEVEL FOR THIS DRUG. Performed By: #### L 501.8850 ####[facility] [address] [place], [address] Wound Cultureon 02-07-2025 WC Normal [facility] Comment on above: Performed By: #### M 100.4001, L8200.1075, M100.3000, M100.2000 ####[facility] [address] [place], [address] Basic Metabolic Profile (BMP )on 02-06-2025 BUN/CRE 22.0 RATIO High 10-20 [facility] Comment on above: Performed By: #### L 100.0100, L500.2500 ####[facility] [address] [place], [address] Calcium [Mass/Vol] 8.8 mg/dL Normal 7.6-11.0 [facility] Comment on above: Performed By: #### L 100.0100, L500.2500 ####[facility] [address] [place], [address] Chloride [Moles/Vol] 109 mmol/L High 98-108 [facility] Comment on above: Performed By: #### L 100.0100, L500.2500 ####[facility] [address] [place], [address] CO2 [Moles/Vol] 21.2 mmol/L Normal 21.0-32.0 [facility] Comment on above: Performed By: #### L 100.0100, L500.2500 ####[facility] [address] [place], [address] Creatinine [Mass/Vol] 1.83 mg/dL High 0.70-1.20 [facility] Comment on above: Performed By: #### L 100.0100, L500.2500 ####[facility] [address] [place], [address] ECRCL 45.10 ml/min Low 50-250 [facility] Comment on above: Performed By: #### L 100.0100, L500.2500 ####[facility] [address] [place], [address] GAP 11 Normal 5-15 [facility] Comment on above: Performed By: #### L 100.0100, L500.2500 ####[facility] [address] [place], [address] GFR/1.73 sq M.predicted among non-blacks MDRD (S/P/Bld) [Vol rate/Area] 38 mL/min/{1.73_m2} Low >60 [facility] Comment on above: Result Comment: mL/m in/1.73m2 CKD-EPI Creatinine Equation (2020) Performed By: #### L 100.0100, L500.2500 ####[facility] [address] [place], [address] Glucose [Mass/Vol] 150 mg/dL High 70-99 [facility] Comment on above: Performed By: #### L 100.0100, L500.2500 ####[facility] [address] [place], [address] Potassium [Moles/Vol] 3.9 mmol/L Normal 3.3-5.1 [facility] Comment on above: Performed By: #### L 100.0100, L500.2500 ####[facility] [address] [place], [address] Sodium [Moles/Vol] 141 mmol/L Normal 133-145 [facility] Comment on above: Performed By: #### L 100.0100, L500.2500 ####[facility] [address] [place], [address] Urea nitrogen [Mass/Vol] 40 mg/dL High 4-19 [facility] Comment on above: Performed By: #### L 100.0100, L500.2500 ####[facility] [address] [place], [address] Bedside Glucoseon 02-06-2025 FINGERSTICK GLU 169 mg/dL High 74-106 [facility] Comment on above: Result Comment: JAZ GEMENT OF PATIENT CARE PER NURSING PROTOCOL Performed By: #### L 501.080 ####[facility] [address] [place], [address] FINGERSTICK GLU 140 mg/dL High 74-106 [facility] Comment on above: Result Comment: JAZ GEMENT OF PATIENT CARE PER NURSING PROTOCOL Performed By: #### L 501.080 ####[facility] [address] [place], [address] FINGERSTICK GLU 186 mg/dL High 74-106 [facility] Comment on above: Result Comment: JAZ GEMENT OF PATIENT CARE PER NURSING PROTOCOL Performed By: #### L 501.080 ####[facility] [address] [place], [address] FINGERSTICK GLU 147 mg/dL High 74-106 [facility] Comment on above: Result Comment: JAZ GEMENT OF PATIENT CARE PER NURSING PROTOCOL Performed By: #### L 501.080 ####[facility] [address] [place], [address] CBC W/Diff, Automatedon 07-2 Absolute Lymph 1.00 X10 3/uL Normal 0.83-4.51 [facility] Comment on above: Performed By: #### L 100.0100, L500.2500 ####[facility] [address] [place], [address] Absolute Neut 7.3 X10 3/uL Normal 2.0-7.7 [facility] Comment on above: Performed By: #### L 100.0100, L500.2500 ####[facility] [address] [place], [address] Basophils/100 WBC (Bld) 0.4 % Normal 0-1 [facility] Comment on above: Performed By: #### L 100.0100, L500.2500 ####[facility] [address] [place], [address] Eosinophils/100 WBC (Bld) 5.9 % High 0-5 [facility] Comment on above: Performed By: #### L 100.0100, L500.2500 ####[facility] [address] [place], [address] Erythrocyte distribution width (RBC) [Ratio] 13.6 % Normal 11.6-14.6 [facility] Comment on above: Performed By: #### L 100.0100, L500.2500 ####[facility] [address] [place], [address] Hematocrit (Bld) [Volume fraction] 30.5 % Low 40-54 [facility] Comment on above: Performed By: #### L 100.0100, L500.2500 ####[facility] [address] [place], [address] Hemoglobin (Bld) [Mass/Vol] 9.9 g/dL Low 13.0-16. 5 [facility] Comment on above: Performed By: #### L 100.0100, L500.2500 ####[facility] [address] [place], [address] IG% 0.800 Normal 0.0-0.9 [facility] Comment on above: Result Comment: IG% - Immature Granulocytes (promyelocytes, myelocytes andmetamyelocytes) > 1% indicates that a LEFT SHIFT is Present. Performed By: #### L 100.0100, L500.2500 ####[facility] [address] [place], [address] Lymphocytes/100 WBC (Bld) 10.1 % Low 19-41 [facility] Comment on above: Performed By: #### L 100.0100, L500.2500 ####[facility] [address] [place], [address] MCH (RBC) [Entitic mass] 27.9 pg Normal 27.0-32.0 [facility] Comment on above: Performed By: #### L 100.0100, L500.2500 ####[facility] [address] [place], [address] MCHC (RBC) [Mass/Vol] 32.5 g/dL Normal 32-36 [facility] Comment on above: Performed By: #### L 100.0100, L500.2500 ####[facility] [address] [place], [address] MCV (RBC) [Entitic vol] 85.9 fL Normal 80-94 [facility] Comment on above: Performed By: #### L 100.0100, L500.2500 ####[facility] [address] [place], [address] Monocytes/100 WBC (Bld) 8.6 % Normal 0-10 [facility] Comment on above: Performed By: #### L 100.0100, L500.2500 ####[facility] [address] [place], [address] Neutrophils/100 WBC (Bld) 74.2 % High 47-70 [facility] Comment on above: Performed By: #### L 100.0100, L500.2500 ####[facility] [address] [place], [address] Nucleated RBC (Bld) [#/Vol] 0 10*3/uL Normal 0-5 [facility] Comment on above: Performed By: #### L 100.0100, L500.2500 ####[facility] [address] [place], [address] Platelet mean volume (Bld) [Entitic vol] 9.2 fL Normal 6.2-12.0 [facility] Comment on above: Performed By: #### L 100.0100, L500.2500 ####[facility] [address] [place], [address] Platelets (Bld) [#/Vol] 262 10*3/uL Normal 150-450 [facility] Comment on above: Performed By: #### L 100.0100, L500.2500 ####[facility] [address] [place], [address] RBC (Bld) [#/Vol] 3.55 10*6/uL Low 4.6-6.2 [facility] Comment on above: Performed By: #### L 100.0100, L500.2500 ####[facility] [address] [place], [address] RDW SD 42.9 fl Normal 35.1-43.9 [facility] Comment on above: Performed By: #### L 100.0100, L500.2500 ####[facility] [address] [place], [address] WBC (Bld) [#/Vol] 9.9 10*3/uL Normal 4.4-11.0 [facility] Comment on above: Performed By: #### L 100.0100, L500.2500 ####[facility] [address] [place], [address] Gram Stainon 02-06-2025 GS UNK UNK Bone 5th left Metatarsal toe Gram Stain No organisms seen 2+ White Blood Cells Normal [facility] Comment on above: Performed By: #### M 100.3000, M100.2000, M600.2200, M100.4001, M600.2000 ####[facility] [address] [place], [address] GS UNK UNK Clearance Fragment left 5th metatarsal toe Gram Stain No organisms seen Normal [facility] Comment on above: Performed By: #### M 100.3000, M600.1999, M100.2000, M600.2200, M100.4001 ####[facility] [address] [place], [address] Vancomycin, Random Levelon 0 02-06-2025 VANCO, RANDOM 21.4 ug/mL High 0.0-15.0 [facility] Comment on above: Result Comment: VANC OMYCIN STANDARD DRUG THERAPY: CRITICAL VALUE IS > 15.0 mg/LVANCOMYCIN HIGH INTENSITY THERAPY: CRITICAL VALUE IS > 20.0 mg/LPLEASE CONTACT PHARMACY SERVICES (#2268) FOR INTERPRETATIONOF RESULTS. THIS RESULT DOES NOT REPRESENT A PEAK OR TROUGHLEVEL FOR THIS DRUG. Performed By: #### L 501.8850 ####[facility] [address] [place], [address] Vancomycin, Trough Levelon 0 02-06-2025 VANCO, TROUGH 25.9 ug/mL High 5.0-15.0 [facility] Comment on above: Order Comment: Comme nts: Trough to be drawn 30 mins prior to scheduled [id number] Result Comment: Jalen mmended goal trough ranges [...] therapy recommended for serious lifethreatening infections include:- Ctmornvpws-Jbdsurikvyjm-Taihgdzil (Ventilator/Healtcare Associated)-SepsisPLEASE CONTACT PHARMACY SERVICES (#7369) FOR INTERPRETATIONOF RESULTS. Performed By: #### L 501.8857 ####[facility] [address] [place], [address] Wound Cultureon 02-06-2025 WC UNK UNK Clearance Fragment left 5th metatarsal toe No growth aerobically. Normal [facility] Comment on above: Performed By: #### M 100.3000, M600.2000, M100.2000, M600.2200, M100.4001 ####[facility] [address] [place], [address] Acid fast bacillus (AFB) cul tureOrdered By: Kee Mejia on 02-05-2025 Mycobacterium sp identified Org specific cx Nom (Unsp spec) [facility] Mycobacterium sp identified Org specific cx Nom (Unsp spec) [facility] Anaerobic cultureOrdered By: Kee Mejia on 02-05-2025 Bacteria identified Anaer cx Nom (Unsp spec) No anaerobic bacteria isolated. [facility] Bacteria identified Anaer cx Nom (Unsp spec) No growth in 5 days. [facility] Basic Metabolic Profile (BMP )on 02-05-2025 BUN/CRE 22.6 RATIO High 10-20 [facility] Comment on above: Performed By: #### L 500.2500, L100.0100 ####[facility] [address] [place], [address] Calcium [Mass/Vol] 8.8 mg/dL Normal 7.6-11.0 [facility] Comment on above: Performed By: #### L 500.2500, L100.0100 ####[facility] [address] [place], [address] Chloride [Moles/Vol] 110 mmol/L High 98-108 [facility] Comment on above: Performed By: #### L 500.2500, L100.0100 ####[facility] [address] [place], [address] CO2 [Moles/Vol] 20.0 mmol/L Low 21.0-32.0 [facility] Comment on above: Performed By: #### L 500.2500, L100.0100 ####[facility] [address] [place], [address] Creatinine [Mass/Vol] 1.81 mg/dL High 0.70-1.20 [facility] Comment on above: Performed By: #### L 500.2500, L100.0100 ####[facility] [address] [place], [address] ECRCL 45.33 ml/min Low 50-250 [facility] Comment on above: Performed By: #### L 500.2500, L100.0100 ####[facility] [address] [place], [address] GAP 12 Normal 5-15 [facility] Comment on above: Performed By: #### L 500.2500, L100.0100 ####[facility] [address] [place], [address] GFR/1.73 sq M.predicted among non-blacks MDRD (S/P/Bld) [Vol rate/Area] 38 mL/min/{1.73_m2} Low >60 [facility] Comment on above: Result Comment: mL/m in/1.73m2 CKD-EPI Creatinine Equation (2020) Performed By: #### L 500.2500, L100.0100 ####[facility] [address] [place], [address] Glucose [Mass/Vol] 166 mg/dL High 70-99 [facility] Comment on above: Performed By: #### L 500.2500, L100.0100 ####[facility] [address] [place], [address] Potassium [Moles/Vol] 3.8 mmol/L Normal 3.3-5.1 [facility] Comment on above: Performed By: #### L 500.2500, L100.0100 ####[facility] [address] [place], [address] Sodium [Moles/Vol] 141 mmol/L Normal 133-145 [facility] Comment on above: Performed By: #### L 500.2500, L100.0100 ####[facility] [address] [place], [address] Urea nitrogen [Mass/Vol] 41 mg/dL High 4-19 [facility] Comment on above: Performed By: #### L 500.2500, L100.0100 ####[facility] [address] [place], [address] Bedside Glucoseon 02-05-2025 FINGERSTICK GLU 168 mg/dL High 74-106 [facility] Comment on above: Result Comment: JAZ GEMENT OF PATIENT CARE PER NURSING PROTOCOL Performed By: #### L 501.080 ####[facility] [address] [place], [address] FINGERSTICK GLU 152 mg/dL High 74-106 [facility] Comment on above: Result Comment: JAZ GEMENT OF PATIENT CARE PER NURSING PROTOCOL Performed By: #### L 501.080 ####[facility] [address] [place], [address] FINGERSTICK GLU 153 mg/dL High 74-106 [facility] Comment on above: Result Comment: JAZ GEMENT OF PATIENT CARE PER NURSING PROTOCOL Performed By: #### L 501.080 ####[facility] [address] [place], [address] FINGERSTICK GLU 159 mg/dL High 74-106 [facility] Comment on above: Result Comment: JAZ GEMENT OF PATIENT CARE PER NURSING PROTOCOL Performed By: #### L 501.080 ####[facility] [address] [place], [address] FINGERSTICK GLU 167 mg/dL High 74-106 [facility] Comment on above: Result Comment: JAZ GEMENT OF PATIENT CARE PER NURSING PROTOCOL Performed By: #### L 501.080 ####[facility] [address] [place], [address] CBC W/Diff, Automatedon 07-2 5-2024 Absolute Lymph 1.00 X10 3/uL Normal 0.83-4.51 [facility] Comment on above: Performed By: #### L 500.2500, L100.0100 ####[facility] [address] [place], [address] Absolute Neut 8.2 X10 3/uL High 2.0-7.7 [facility] Comment on above: Performed By: #### L 500.2500, L100.0100 ####[facility] [address] [place], [address] Basophils/100 WBC (Bld) 0.2 % Normal 0-1 [facility] Comment on above: Performed By: #### L 500.2500, L100.0100 ####[facility] [address] [place], [address] Eosinophils/100 WBC (Bld) 5.2 % High 0-5 [facility] Comment on above: Performed By: #### L 500.2500, L100.0100 ####[facility] [address] [place], [address] Erythrocyte distribution width (RBC) [Ratio] 13.7 % Normal 11.6-14.6 [facility] Comment on above: Performed By: #### L 500.2500, L100.0100 ####[facility] [address] [place], [address] Hematocrit (Bld) [Volume fraction] 30.2 % Low 40-54 [facility] Comment on above: Performed By: #### L 500.2500, L100.0100 ####[facility] [address] [place], [address] Hemoglobin (Bld) [Mass/Vol] 9.7 g/dL Low 13.0-16. 5 [facility] Comment on above: Performed By: #### L 500.2500, L100.0100 ####[facility] [address] [place], [address] IG% 0.800 Normal 0.0-0.9 [facility] Comment on above: Result Comment: IG% - Immature Granulocytes (promyelocytes, myelocytes andmetamyelocytes) > 1% indicates that a LEFT SHIFT is Present. Performed By: #### L 500.2500, L100.0100 ####[facility] [address] [place], [address] Lymphocytes/100 WBC (Bld) 9.4 % Low 19-41 [facility] Comment on above: Performed By: #### L 500.2500, L100.0100 ####[facility] [address] [place], [address] MCH (RBC) [Entitic mass] 27.6 pg Normal 27.0-32.0 [facility] Comment on above: Performed By: #### L 500.2500, L100.0100 ####[facility] [address] [place], [address] MCHC (RBC) [Mass/Vol] 32.1 g/dL Normal 32-36 [facility] Comment on above: Performed By: #### L 500.2500, L100.0100 ####[facility] [address] [place], [address] MCV (RBC) [Entitic vol] 85.8 fL Normal 80-94 [facility] Comment on above: Performed By: #### L 500.2500, L100.0100 ####[facility] [address] [place], [address] Monocytes/100 WBC (Bld) 8.0 % Normal 0-10 [facility] Comment on above: Performed By: #### L 500.2500, L100.0100 ####[facility] [address] [place], [address] Neutrophils/100 WBC (Bld) 76.4 % High 47-70 [facility] Comment on above: Performed By: #### L 500.2500, L100.0100 ####[facility] [address] [place], [address] Nucleated RBC (Bld) [#/Vol] 0 10*3/uL Normal 0-5 [facility] Comment on above: Performed By: #### L 500.2500, L100.0100 ####[facility] [address] [place], [address] Platelet mean volume (Bld) [Entitic vol] 9.2 fL Normal 6.2-12.0 [facility] Comment on above: Performed By: #### L 500.2500, L100.0100 ####[facility] [address] [place], [address] Platelets (Bld) [#/Vol] 232 10*3/uL Normal 150-450 [facility] Comment on above: Performed By: #### L 500.2500, L100.0100 ####[facility] [address] [place], [address] RBC (Bld) [#/Vol] 3.52 10*6/uL Low 4.6-6.2 [facility] Comment on above: Performed By: #### L 500.2500, L100.0100 ####[facility] [address] [place], [address] RDW SD 43.1 fl Normal 35.1-43.9 [facility] Comment on above: Performed By: #### L 500.2500, L100.0100 ####[facility] [address] [place], [address] WBC (Bld) [#/Vol] 10.7 10*3/uL Normal 4.4-11.0 [facility] Comment on above: Performed By: #### L 500.2500, L100.0100 ####[facility] [address] [place], [address] Decalcification bone/plaqueo n 02-05-2025 Decalcification bone/plaque Normal [facility] Comment on above: Performed By: #### P DEC ####[facility] [address] [place], [address] Foot min 3 Viewson 5 Foot min 3 Views Normal [facility] Fungus cultureOrdered By: Eddie Mejia on 02-05-2025 Fungus identified Cx Nom (Unsp spec) [facility] Fungus stainOrdered By: Akshat Mejia on 02-05-2025 Fungus identified Fungus stain Nom (Unsp spec) [facility] Gram stainOrdered By: Yeni Mejia on 02-05-2025 Microscopic observation Gram stain Nom (Unsp spec) [facility] M8200.1000on 02-05-2025 M8200.1000 Normal Reference Range = Negative MRSA DNA Nose Ql ANGELY+probe GeneXpert Instrument, PCR method MRSA PCR MRSA NEGATIVE Normal [facility] Comment on above: Performed By: #### M 8200.1000 ####[facility] [address] [place], [address] MR/POSTOP.ANEon 02-05-2025 MR/POSTOP.ANE Normal [facility] Magnetic resonance imaging r eportOrdered By: Jay Barrow on 02-05-2025 Study report [facility] Nasal methicillin resistant Staphylococcus aureus (MRSA) DNA detection by PCROrdered By: Karen Aly on 02-05-2025 MRSA DNA ANGELY+probe Ql (Nose) [facility] Operative Reporton Operative Report Normal [facility] Routine wound cultureOrdered By: Kee Mejia on 02-05-2025 Microbial culture, routine Meth. resista nt Staph. aureus Abnormal [facility] Basic Metabolic Profile (BMP )on 02-04-2025 BUN/CRE 17.8 RATIO Normal 10-20 [facility] Comment on above: Performed By: #### L 500.2500, L100.0100 ####[facility] [address] [place], [address] Calcium [Mass/Vol] 8.3 mg/dL Normal 7.6-11.0 [facility] Comment on above: Performed By: #### L 500.2500, L100.0100 ####[facility] [address] [place], [address] Chloride [Moles/Vol] 110 mmol/L High 98-108 [facility] Comment on above: Performed By: #### L 500.2500, L100.0100 ####[facility] [address] [place], [address] CO2 [Moles/Vol] 23.0 mmol/L Normal 21.0-32.0 [facility] Comment on above: Performed By: #### L 500.2500, L100.0100 ####[facility] [address] [place], [address] Creatinine [Mass/Vol] 1.49 mg/dL High 0.70-1.20 [facility] Comment on above: Performed By: #### L 500.2500, L100.0100 ####[facility] [address] [place], [address] ECRCL 55.04 ml/min Normal 50-250 [facility] Comment on above: Performed By: #### L 500.2500, L100.0100 ####[facility] [address] [place], [address] GAP 9 Normal 5-15 [facility] Comment on above: Performed By: #### L 500.2500, L100.0100 ####[facility] [address] [place], [address] GFR/1.73 sq M.predicted among non-blacks MDRD (S/P/Bld) [Vol rate/Area] 48 mL/min/{1.73_m2} Low >60 [facility] Comment on above: Result Comment: mL/m in/1.73m2 CKD-EPI Creatinine Equation (2020) Performed By: #### L 500.2500, L100.0100 ####[facility] [address] [place], [address] Glucose [Mass/Vol] 170 mg/dL High 70-99 [facility] Comment on above: Performed By: #### L 500.2500, L100.0100 ####[facility] [address] [place], [address] Potassium [Moles/Vol] 3.9 mmol/L Normal 3.3-5.1 [facility] Comment on above: Performed By: #### L 500.2500, L100.0100 ####[facility] [address] [place], [address] Sodium [Moles/Vol] 142 mmol/L Normal 133-145 [facility] Comment on above: Performed By: #### L 500.2500, L100.0100 ####[facility] [address] [place], [address] Urea nitrogen [Mass/Vol] 27 mg/dL High 4-19 [facility] Comment on above: Performed By: #### L 500.2500, L100.0100 ####[facility] [address] [place], [address] Bedside Glucoseon - FINGERSTICK GLU 176 mg/dL High 74-106 [facility] Comment on above: Result Comment: JAZ GEMENT OF PATIENT CARE PER NURSING PROTOCOL Performed By: #### L 501.080 ####[facility] [address] [place], [address] FINGERSTICK GLU 143 mg/dL High 74-106 [facility] Comment on above: Result Comment: JAZ GEMENT OF PATIENT CARE PER NURSING PROTOCOL Performed By: #### L 501.080 ####[facility] [address] [place], [address] FINGERSTICK GLU 171 mg/dL High 74-106 [facility] Comment on above: Result Comment: JAZ GEMENT OF PATIENT CARE PER NURSING PROTOCOL Performed By: #### L 501.080 ####[facility] [address] [place], [address] FINGERSTICK GLU 169 mg/dL High 74-106 [facility] Comment on above: Result Comment: JAZ GEMENT OF PATIENT CARE PER NURSING PROTOCOL Performed By: #### L 501.080 ####[facility] [address] [place], [address] CBC W/Diff, Automatedon 07-2 Absolute Lymph 0.61 X10 3/uL Low 0.83-4.51 [facility] Comment on above: Performed By: #### L 500.2500, L100.0100 ####[facility] [address] [place], [address] Absolute Neut 9.2 X10 3/uL High 2.0-7.7 [facility] Comment on above: Performed By: #### L 500.2500, L100.0100 ####[facility] [address] [place], [address] Basophils/100 WBC (Bld) 0.3 % Normal 0-1 [facility] Comment on above: Performed By: #### L 500.2500, L100.0100 ####[facility] [address] [place], [address] Eosinophils/100 WBC (Bld) 4.1 % Normal 0-5 [facility] Comment on above: Performed By: #### L 500.2500, L100.0100 ####[facility] [address] [place], [address] Erythrocyte distribution width (RBC) [Ratio] 13.7 % Normal 11.6-14.6 [facility] Comment on above: Performed By: #### L 500.2500, L100.0100 ####[facility] [address] [place], [address] Hematocrit (Bld) [Volume fraction] 31.0 % Low 40-54 [facility] Comment on above: Performed By: #### L 500.2500, L100.0100 ####[facility] [address] [place], [address] Hemoglobin (Bld) [Mass/Vol] 10.1 g/dL Low 13.0-16. 5 [facility] Comment on above: Performed By: #### L 500.2500, L100.0100 ####[facility] [address] [place], [address] IG% 0.900 Normal 0.0-0.9 [facility] Comment on above: Result Comment: IG% - Immature Granulocytes (promyelocytes, myelocytes andmetamyelocytes) > 1% indicates that a LEFT SHIFT is Present. Performed By: #### L 500.2500, L100.0100 ####[facility] [address] [place], [address] Lymphocytes/100 WBC (Bld) 5.3 % Low 19-41 [facility] Comment on above: Performed By: #### L 500.2500, L100.0100 ####[facility] [address] [place], [address] MCH (RBC) [Entitic mass] 27.8 pg Normal 27.0-32.0 [facility] Comment on above: Performed By: #### L 500.2500, L100.0100 ####[facility] [address] [place], [address] MCHC (RBC) [Mass/Vol] 32.6 g/dL Normal 32-36 [facility] Comment on above: Performed By: #### L 500.2500, L100.0100 ####[facility] [address] [place], [address] MCV (RBC) [Entitic vol] 85.4 fL Normal 80-94 [facility] Comment on above: Performed By: #### L 500.2500, L100.0100 ####[facility] [address] [place], [address] Monocytes/100 WBC (Bld) 9.4 % Normal 0-10 [facility] Comment on above: Performed By: #### L 500.2500, L100.0100 ####[facility] [address] [place], [address] Neutrophils/100 WBC (Bld) 80.0 % High 47-70 [facility] Comment on above: Performed By: #### L 500.2500, L100.0100 ####[facility] [address] [place], [address] Nucleated RBC (Bld) [#/Vol] 0 10*3/uL Normal 0-5 [facility] Comment on above: Performed By: #### L 500.2500, L100.0100 ####[facility] [address] [place], [address] Platelet mean volume (Bld) [Entitic vol] 9.3 fL Normal 6.2-12.0 [facility] Comment on above: Performed By: #### L 500.2500, L100.0100 ####[facility] [address] [place], [address] Platelets (Bld) [#/Vol] 193 10*3/uL Normal 150-450 [facility] Comment on above: Performed By: #### L 500.2500, L100.0100 ####[facility] [address] [place], [address] RBC (Bld) [#/Vol] 3.63 10*6/uL Low 4.6-6.2 [facility] Comment on above: Performed By: #### L 500.2500, L100.0100 ####[facility] [address] [place], [address] RDW SD 43.2 fl Normal 35.1-43.9 [facility] Comment on above: Performed By: #### L 500.2500, L100.0100 ####[facility] [address] [place], [address] WBC (Bld) [#/Vol] 11.4 10*3/uL High 4.4-11.0 [facility] Comment on above: Performed By: #### L 500.2500, L100.0100 ####[facility] [address] [place], [address] Consultation - Surgicalon Consultation - Surgical Normal [facility] Gram Stainon 02-04-2025 GS ONLY AEROBIC SWAB WA S SENT DRUGS WITH ANAROBES MAYBE INHIBITED. Gram Stain 4+ Gram positive cocci Rare Epithelial cells 4+ Gram positive rods Normal [facility] Comment on above: Performed By: #### M 100.4001, L8200.1075, M100.3000, M100.1999 ####[facility] [address] [place], [address] Lower Ext/No Jt/w/oon 2024 Lower Ext/No Jt/w/o Normal [facility] MRSA Wound DNA by PCRon 01-13 MRSA DNA ASSAY Positive Abnormal Negative [facility] Comment on above: Order Comment: Wound left foot Result Comment: [facility]25213 Edwar Mcdowell Mitchell.REPORT READ BACK BY SAME. AMENDED REPORT 02/04/25213 MRSA RESULT previously reported as: POSITIVE H Performed By: #### M 100.4001, L8200.1075, M100.3000, M100.1999 ####[facility] [address] [place], [address] Urine Cultureon 02-04-2025 URC Culture exhibits no growth. Normal [facility] Comment on above: Performed By: #### L 400.0001, M100.2200 ####[facility] [address] [place], [address] Vancomycin, Random Levelon 0 - VANCO, RANDOM 17.8 ug/mL High 0.0-15.0 [facility] Comment on above: Result Comment: VANC OMYCIN STANDARD DRUG THERAPY: CRITICAL VALUE IS > 15.0 mg/LVANCOMYCIN HIGH INTENSITY THERAPY: CRITICAL VALUE IS > 20.0 mg/LPLEASE CONTACT PHARMACY SERVICES (#7319) FOR INTERPRETATIONOF RESULTS. THIS RESULT DOES NOT REPRESENT A PEAK OR TROUGHLEVEL FOR THIS DRUG. Performed By: #### L 501.8850 ####[facility] [address] [place], [address] Vancomycin, Trough Levelon 0 - VANCO, TROUGH 21.4 ug/mL High 5.0-15.0 [facility] Comment on above: Order Comment: Comme nts: Trough to be drawn 30 mins prior to scheduled [id number] Result Comment: Jalen mmended goal trough ranges [...] therapy recommended for serious lifethreatening infections include:- Bprppghspw-Atqqugqqeftr-Vhfndrsmm (Ventilator/Healtcare Associated)-SepsisPLEASE CONTACT PHARMACY SERVICES (#0742) FOR INTERPRETATIONOF RESULTS. Performed By: #### L 501.8820 ####[facility] [address] [place], [place], [id number] Anaerobic cultureOrdered By: Kee Mejia on 02-03-2025 Bacteria identified Anaer cx Nom (Unsp spec) No anaerobic bacteria isolated. [facility] Arterial study reportOrdered By: Aneesh Ac on 02-03-2025 Noninvasive arteriosclerosis study report [facility] Work Phone: Bedside Glucoseon 02-03-2025 FINGERSTICK GLU 170 mg/dL High 74-106 [facility] Comment on above: Result Comment: JAZ GEMENT OF PATIENT CARE PER NURSING PROTOCOL Performed By: #### L 501.080 ####[facility] [address] [place], [address] FINGERSTICK GLU 154 mg/dL High 74-106 [facility] Comment on above: Result Comment: JAZ GEMENT OF PATIENT CARE PER NURSING PROTOCOL Performed By: #### L 501.080 ####[facility] [address] [place], [address] FINGERSTICK GLU 140 mg/dL High 74-106 [facility] Comment on above: Result Comment: JAZ GEMENT OF PATIENT CARE PER NURSING PROTOCOL Performed By: #### L 501.080 ####[facility] [address] [place], [address] FINGERSTICK GLU 148 mg/dL High 74-106 [facility] Comment on above: Result Comment: JAZ GEMENT OF PATIENT CARE PER NURSING PROTOCOL Performed By: #### L 501.080 ####[facility] [address] [place], [address] FINGERSTICK GLU 140 mg/dL High 74-106 [facility] Comment on above: Result Comment: JAZ GEMENT OF PATIENT CARE PER NURSING PROTOCOL Performed By: #### L 501.080 ####[facility] [address] [place], [address] Bilirubin, totalOrdered By: Karen Aly on 02-03-2025 Bilirubin [Mass/Vol] 0.61 mg/dL 0.00-1.30 [facility] CBC W/Diff, Automatedon 01-13 PLT EST ADEQUATE Normal ADEQ [facility] Comment on above: Performed By: #### L 501.5200, L501.6710, L101.9900, L500.4050, L100.0100, L501.9985 ####[facility] [address] [place], [address] CRPon 02-03-2025 C-REACTIVE PROT 138.00 mg/L High 0.0-3.0 [facility] Comment on above: Performed By: #### L 501.5200, L501.6710, L101.9900, L500.4050, L100.0100, L501.9985 ####[facility] [address] [place], [address] Comprehensive Metabolic Prof ilon 02-03-2025 Albumin [Mass/Vol] 2.9 g/dL Low 3.4-4.8 [facility] Comment on above: Performed By: #### L 501.5200, L501.6710, L101.9900, L500.4050, L100.0100, L501.9985 ####[facility] [address] [place], [address] ALK PHOS 106 U/L Normal 40-129 [facility] Comment on above: Performed By: #### L 501.5200, L501.6710, L101.9900, L500.4050, L100.0100, L501.9985 ####[facility] [address] [place], [address] ALT [Catalytic activity/Vol] 9 U/L Normal <=46 [facility] Comment on above: Performed By: #### L 501.5200, L501.6710, L101.9900, L500.4050, L100.0100, L501.9985 ####[facility] [address] [place], [address] AST [Catalytic activity/Vol] 15 U/L Normal <=37 [facility] Comment on above: Result Comment: Hemo lysis present, Results??could be affected.?? Performed By: #### L 501.5200, L501.6710, L101.9900, L500.4050, L100.0100, L501.9985 ####[facility] [address] [place], [address] Bilirubin [Mass/Vol] 0.61 mg/dL Normal 0.00-1.30 [facility] Comment on above: Performed By: #### L 501.5200, L501.6710, L101.9900, L500.4050, L100.0100, L501.9985 ####[facility] [address] [place], [address] BUN/CRE 16.9 RATIO Normal 10-20 [facility] Comment on above: Performed By: #### L 501.5200, L501.6710, L101.9900, L500.4050, L100.0100, L501.9985 ####[facility] [address] [place], [address] Calcium [Mass/Vol] 8.3 mg/dL Normal 7.6-11.0 [facility] Comment on above: Performed By: #### L 501.5200, L501.6710, L101.9900, L500.4050, L100.0100, L501.9985 ####[facility] [address] [place], [address] Chloride [Moles/Vol] 107 mmol/L Normal 98-108 [facility] Comment on above: Performed By: #### L 501.5200, L501.6710, L101.9900, L500.4050, L100.0100, L501.9985 ####[facility] [address] [place], [address] CO2 [Moles/Vol] 18.1 mmol/L Low 21.0-32.0 [facility] Comment on above: Performed By: #### L 501.5200, L501.6710, L101.9900, L500.4050, L100.0100, L501.9985 ####[facility] [address] [place], [address] Creatinine [Mass/Vol] 1.10 mg/dL Normal 0.70-1.20 [facility] Comment on above: Performed By: #### L 501.5200, L501.6710, L101.9900, L500.4050, L100.0100, L501.9985 ####[facility] [address] [place], [address] GAP 14 Normal 5-15 [facility] Comment on above: Performed By: #### L 501.5200, L501.6710, L101.9900, L500.4050, L100.0100, L501.9985 ####[facility] [address] [place], [address] GFR/1.73 sq M.predicted among non-blacks MDRD (S/P/Bld) [Vol rate/Area] 69 mL/min/{1.73_m2} Normal >60 [facility] Comment on above: Result Comment: mL/m in/1.73m2 CKD-EPI Creatinine Equation (2020) Performed By: #### L 501.5200, L501.6710, L101.9900, L500.4050, L100.0100, L501.9985 ####[facility] [address] [place], [address] Glucose [Mass/Vol] 154 mg/dL High 70-99 [facility] Comment on above: Performed By: #### L 501.5200, L501.6710, L101.9900, L500.4050, L100.0100, L501.9985 ####[facility] [address] [place], [address] Potassium [Moles/Vol] 4.2 mmol/L Normal 3.3-5.1 [facility] Comment on above: Result Comment: Hemo lysis present, Results??could be affected.?? Performed By: #### L 501.5200, L501.6710, L101.9900, L500.4050, L100.0100, L501.9985 ####[facility] [address] [place], [address] Sodium [Moles/Vol] 139 mmol/L Normal 133-145 [facility] Comment on above: Performed By: #### L 501.5200, L501.6710, L101.9900, L500.4050, L100.0100, L501.9985 ####[facility] [address] [place], [place], [address] T PROT 5.6 g/dL Low 5.9-8.4 [facility] Comment on above: Performed By: #### L 501.5200, L501.6710, L101.9900, L500.4050, L100.0100, L501.9985 ####[facility] [address] [place], [place], [address] Urea nitrogen [Mass/Vol] 19 mg/dL Normal 4-19 [facility] Comment on above: Performed By: #### L 501.5200, L501.6710, L101.9900, L500.4050, L100.0100, L501.9985 ####[facility] [address] [place], [place], [id number] Electrocardiogram reportOrde red By: Tuan Thakkar on 02-03-2025 EKG study [facility] Other Phone: Erythrocyte Sed Rateon 02-03 SED RATE 14 mm/hr Normal 0-20 [facility] Comment on above: Performed By: #### L 501.5200, L501.6710, L101.9900, L500.4050, L100.0100, L501.9985 ####[facility] [address] [place], [place], [id number] Erythrocyte sedimentation ra teOrdered By: Karen White on 02-03-2025 ESR (Bld) [Velocity] 14 mm/h 0-20 [facility] Gram stainOrdered By: Yeni Mejia on 02-03-2025 Microscopic observation Gram stain Nom (Unsp spec) [facility] Hemoglobin A1con 02-03-2025 HbA1c (Bld) [Mass fraction] 6.7 % High <=5.6 [facility] Comment on above: Result Comment: Norm al < 5.7 % Prediabetic 5.7 - 6.4 % Diabetic >or= 6.5 % Please note range changes. Performed By: #### L 501.5200, L501.6710, L101.9900, L500.4050, L100.0100, L501.9985 ####[facility] [address] [place], [place], [id number] Hemoglobin A1c percentageOrd ered By: Karen Jermain on 02-03-2025 HbA1c (Bld) [Mass fraction] 6.7 % High <5.7 [facility] Lactic Acidon 02-03-2025 Lactate [Moles/Vol] 1.6 mmol/L Normal 0.0-2.0 [facility] Comment on above: Performed By: #### L 503.6005 ####[facility] [address] [place], [place], [address] Lactic acid measurementOrder ed By: Nicholas Galarza on 02-03-2025 Lactate [Moles/Vol] 1.6 mmol/L 0.0-2.0 [facility] Legionella Antigen Urineon 0 02-03-2025 LEGU URINE, CLEAN CATCH Legionella Ag, Urine Negative (See interpretation below) Normal [facility] Comment on above: Performed By: #### M 300.4600, M300.4500 ####[facility] [address] [place], [place], [address] Lower Ext Art Exam w/o Exerc jimmy 02-03-2025 Lower Ext Art Exam w/o Exercis Normal [facility] MRSA Wound DNA by PCRon 01-13 MRSA DNA ASSAY Normal Negative [facility] Comment on above: Order Comment: left foot Result Comment: Canc elled via OM: Duplicate Order Performed By: #### L 8200.1075 ####[facility] [address] [place], [address] PROBE CHECK Normal [facility] Comment on above: Order Comment: left foot Result Comment: Canc elled via OM: Duplicate Order Performed By: #### L 8200.1075 ####[facility] [address] [place], [address] SA DNA ASSAY Normal Negative [facility] Comment on above: Order Comment: left foot Result Comment: Canc elled via OM: Duplicate Order Performed By: #### L 8200.1075 ####[facility] [address] [place], [address] SPC Normal [facility] Comment on above: Order Comment: left foot Result Comment: Canc elled via OM: Duplicate Order Performed By: #### L 8200.1075 ####[facility] [address] [place], [address] Magnesiumon 02-03-2025 Magnesium [Mass/Vol] 1.7 mg/dL Normal 1.5-2.2 [facility] Comment on above: Performed By: #### L 501.5200, L501.6710, L101.9900, L500.4050, L100.0100, L501.9985 ####[facility] [address] [place], [address] Magnesium measurement (mass/ volume)Ordered By: Karen Aly on 02-03-2025 Magnesium (Unsp spec) [Mass/Vol] 1.7 mg/dL 1.5-2.2 [facility] Platelet estimateOrdered By: Karen Aly on 02-03-2025 Platelets LM Ql (Bld) ADEQUATE ADEQ [facility] RESPIRATORY PANEL MOLECULARo n 02-03-2025 RP PANEL Normal [facility] Comment on above: Performed By: #### M 100.638 ####[facility] [address] [place], [address] Respiratory pathogens detect ion panel by molecular detection methodOrdered By: Karen Aly on 02-03-2025 Respiratory pathogens DNA and RNA panel ANGELY+probe (Resp) [facility] Routine wound cultureOrdered By: Kee Mejia on 02-03-2025 Microbial culture, routine Meth. resista nt Staph. aureus Abnormal [facility] Microbial culture, routine Enterobacter cloacae complex Abnormal [facility] Serum globulin measurementOr dered By: Karen Aly on 02-03-2025 Globulin (S) [Mass/Vol] 2.7 g/dL 2.2-4.2 [facility] Serum or plasma C reactive p rotein measurement (mass/volume)Ordered By: Karen Jermain on 02-03-2025 CRP [Mass/Vol] 138.00 mg/L High 0.0-3.0 [facility] Serum or plasma albumin antoine urement (mass/volume)Ordered By: on 02-03-2025 Albumin [Mass/Vol] 2.9 g/dL Low 3.4-4.8 [facility] Serum or plasma albumin/glob ulin mass ratioOrdered By: Karen Jermain on 02-03-2025 Albumin/Globulin [Mass ratio] 1.1 {ratio} 0.9-2.4 [facility] Serum or plasma alkaline marilin sphatase measurementOrdered By: on 02-03-2025 ALP [Catalytic activity/Vol] 106 U/L 40-129 [facility] Staphylococcus aureus DNA de tection by probe and target amplification methodOrdered By: Kee Mejia on 02-03-2025 S. aureus DNA ANGELY+probe Ql (Unsp spec) Positive High Negative [facility] Strep pneumoniae Antig(UR,CS F)on 02-03-2025 STPAG Normal [facility] Comment on above: Performed By: #### M 300.4600, M300.4500 ####[facility] [address], [place], [id number] Total proteinOrdered By: Aut umn Jermain on 02-03-2025 Protein [Mass/Vol] 5.6 g/dL Low 5.9-8.4 [facility] 12 Lead EKGon 02-02-2025 12 Lead EKG Normal [facility] Absolute lymphocyte countOrd ered By: Nicholas Galarza on 02-02-2025 Lymphocytes Auto (Unsp spec) [#/Vol] 0.50 10*3/uL Low 0.83-4.51 [facility] Absolute neutrophil countOrd ered By: Nicholas Galarza on 02-02-2025 Neutrophils (Bld) [#/Vol] 12.0 10*3/uL High 2.0-7.7 [facility] Activated partial thrombopla stin time (aPTT) in platelet poor plasma by coagulation aOrdered By: Nicholas Galarza on 02-02-2025 aPTT Coag (PPP) [Time] 34.0 s 24.1-36.2 [facility] Anion gap in Serum or Plasma Ordered By: Nicholas Galarza on 02-02-2025 Anion gap [Moles/Vol] 14 mmol/L 5-15 [facility] Automated lymphocyte count a s percentage of total leukocytesOrdered By: Nicholas Galarza on 02-02-2025 Lymphocytes/100 WBC Auto (Unsp spec) 3.6 % Low 19-41 [facility] BUN/creatinine ratioOrdered By: Nicholas Galarza on 02-02-2025 Urea nitrogen/Creatinine [Mass ratio] 17.0 mg/mg 10-20 [facility] Basophil percentageOrdered B y: Nicholas Galarza on 02-02-2025 Basophils/100 WBC (Bld) 0.2 % 0-1 [facility] Bilirubin Test strip Ql (U)O rdered By: Nicholas Galarza on 02-02-2025 Bilirubin Ql (U) Negative Negative [facility] Bilirubin, totalOrdered By: Nicholas Galarza on 02-02-2025 Bilirubin [Mass/Vol] 0.50 mg/dL 0.00-1.30 [facility] Blood cultureOrdered By: Hermes Galarza on 02-02-2025 Bacteria identified Cx Nom (Bld) No growth in 5 days. [facility] Bacteria identified Cx Nom (Bld) No growth in 5 days. [facility] Brain/Head without Contrasto n 02-02-2025 Brain/Head without Contrast Normal [facility] CBC W/Diff, Automatedon 01-13 Absolute Lymph 0.50 X10 3/uL Low 0.83-4.51 [facility] Comment on above: Performed By: #### M 200.1000, L100.0100, L300.3900, L300.4310, L503.6005, L500.4050 ####[facility] [address] [place], [place], [id number] Absolute Neut 12.0 X10 3/uL High 2.0-7.7 [facility] Comment on above: Performed By: #### M 200.1000, L100.0100, L300.3900, L300.4310, L503.6005, L500.4050 ####[facility] [address] [place], [address] Basophils/100 WBC (Bld) 0.2 % Normal 0-1 [facility] Comment on above: Performed By: #### M 200.1000, L100.0100, L300.3900, L300.4310, L503.6005, L500.4050 ####[facility] [address] [place], [address] Eosinophils/100 WBC (Bld) 0.6 % Normal 0-5 [facility] Comment on above: Performed By: #### M 200.1000, L100.0100, L300.3900, L300.4310, L503.6005, L500.4050 ####[facility] [address] [place], [address] Erythrocyte distribution width (RBC) [Ratio] 13.6 % Normal 11.6-14.6 [facility] Comment on above: Performed By: #### M 200.1000, L100.0100, L300.3900, L300.4310, L503.6005, L500.4050 ####[facility] [address] [place], [address] Hematocrit (Bld) [Volume fraction] 33.5 % Low 40-54 [facility] Comment on above: Performed By: #### M 200.1000, L100.0100, L300.3900, L300.4310, L503.6005, L500.4050 ####[facility] [address] [place], [address] Hemoglobin (Bld) [Mass/Vol] 10.9 g/dL Low 13.0-16. 5 [facility] Comment on above: Performed By: #### M 200.1000, L100.0100, L300.3900, L300.4310, L503.6005, L500.4050 ####[facility] [address] [place], [address] IG% 0.700 Normal 0.0-0.9 [facility] Comment on above: Result Comment: IG% - Immature Granulocytes (promyelocytes, myelocytes andmetamyelocytes) > 1% indicates that a LEFT SHIFT is Present. Performed By: #### M 200.1000, L100.0100, L300.3900, L300.4310, L503.6005, L500.4050 ####[facility] [address] [place], [address] Lymphocytes/100 WBC (Bld) 3.6 % Low 19-41 [facility] Comment on above: Performed By: #### M 200.1000, L100.0100, L300.3900, L300.4310, L503.6005, L500.4050 ####[facility] [address] [place], [address] MCH (RBC) [Entitic mass] 27.7 pg Normal 27.0-32.0 [facility] Comment on above: Performed By: #### M 200.1000, L100.0100, L300.3900, L300.4310, L503.6005, L500.4050 ####[facility] [address] [place], [address] MCHC (RBC) [Mass/Vol] 32.5 g/dL Normal 32-36 [facility] Comment on above: Performed By: #### M 200.1000, L100.0100, L300.3900, L300.4310, L503.6005, L500.4050 ####[facility] [address] [place], [address] MCV (RBC) [Entitic vol] 85.0 fL Normal 80-94 [facility] Comment on above: Performed By: #### M 200.1000, L100.0100, L300.3900, L300.4310, L503.6005, L500.4050 ####[facility] [address] [place], [address] Monocytes/100 WBC (Bld) 8.7 % Normal 0-10 [facility] Comment on above: Performed By: #### M 200.1000, L100.0100, L300.3900, L300.4310, L503.6005, L500.4050 ####[facility] [address] [place], [address] Neutrophils/100 WBC (Bld) 86.2 % High 47-70 [facility] Comment on above: Performed By: #### M 200.1000, L100.0100, L300.3900, L300.4310, L503.6005, L500.4050 ####[facility] [address] [place], [address] Nucleated RBC (Bld) [#/Vol] 0 10*3/uL Normal 0-5 [facility] Comment on above: Performed By: #### M 200.1000, L100.0100, L300.3900, L300.4310, L503.6005, L500.4050 ####[facility] [address] [place], [address] Platelet mean volume (Bld) [Entitic vol] 9.4 fL Normal 6.2-12.0 [facility] Comment on above: Performed By: #### M 200.1000, L100.0100, L300.3900, L300.4310, L503.6005, L500.4050 ####[facility] [address] [place], [address] Platelets (Bld) [#/Vol] 203 10*3/uL Normal 150-450 [facility] Comment on above: Performed By: #### M 200.1000, L100.0100, L300.3900, L300.4310, L503.6005, L500.4050 ####[facility] [address] [place], [address] RBC (Bld) [#/Vol] 3.94 10*6/uL Low 4.6-6.2 [facility] Comment on above: Performed By: #### M 200.1000, L100.0100, L300.3900, L300.4310, L503.6005, L500.4050 ####[facility] [address] [place], [address] RDW SD 42.2 fl Normal 35.1-43.9 [facility] Comment on above: Performed By: #### M 200.1000, L100.0100, L300.3900, L300.4310, L503.6005, L500.4050 ####[facility] [address] [place], [address] WBC (Bld) [#/Vol] 13.9 10*3/uL High 4.4-11.0 [facility] Comment on above: Performed By: #### M 200.1000, L100.0100, L300.3900, L300.4310, L503.6005, L500.4050 ####[facility] [address] [place], [address] CRPon 02-02-2025 C-REACTIVE PROT 94.50 mg/L High 0.0-3.0 [facility] Comment on above: Order Comment: Comme nts: may add to ED labs Performed By: #### L 501.5200, L501.6710, L101.9900 ####[facility] [address] [place], [address] Carbon dioxide, total [Moles /volume] in Central venous bloodOrdered By: Nicholas Galarza on 02-02-2025 CO2 [Moles/Vol] 22.4 mmol/L 21.0-32.0 [facility] Chest 1 View (Portable)on Chest 1 View (Portable) Normal [facility] Chloride assayOrdered By: Jose Juan Galarza on 02-02-2025 Chloride [Moles/Vol] 104 mmol/L 98-108 [facility] Comprehensive Metabolic Prof ilon 02-02-2025 Albumin [Mass/Vol] 3.5 g/dL Normal 3.4-4.8 [facility] Comment on above: Performed By: #### M 200.1000, L100.0100, L300.3900, L300.4310, L503.6005, L500.4050 ####[facility] [address] [place], [address] Albumin/Globulin [Mass ratio] 1.5 {ratio} Normal 0.9-2.4 [facility] Comment on above: Performed By: #### M 200.1000, L100.0100, L300.3900, L300.4310, L503.6005, L500.4050 ####[facility] [address] [place], [address] ALK PHOS 115 U/L Normal 40-129 [facility] Comment on above: Performed By: #### M 200.1000, L100.0100, L300.3900, L300.4310, L503.6005, L500.4050 ####[facility] [address] [place], [address] ALT [Catalytic activity/Vol] 10 U/L Normal <=46 [facility] Comment on above: Performed By: #### M 200.1000, L100.0100, L300.3900, L300.4310, L503.6005, L500.4050 ####[facility] [address] [place], [address] AST [Catalytic activity/Vol] 15 U/L Normal <=37 [facility] Comment on above: Performed By: #### M 200.1000, L100.0100, L300.3900, L300.4310, L503.6005, L500.4050 ####[facility] [address] [place], [address] Bilirubin [Mass/Vol] 0.50 mg/dL Normal 0.00-1.30 [facility] Comment on above: Performed By: #### M 200.1000, L100.0100, L300.3900, L300.4310, L503.6005, L500.4050 ####[facility] [address] [place], [address] BUN/CRE 17.0 RATIO Normal 10-20 [facility] Comment on above: Performed By: #### M 200.1000, L100.0100, L300.3900, L300.4310, L503.6005, L500.4050 ####[facility] [address] [place], [address] Calcium [Mass/Vol] 8.7 mg/dL Normal 7.6-11.0 [facility] Comment on above: Performed By: #### M 200.1000, L100.0100, L300.3900, L300.4310, L503.6005, L500.4050 ####[facility] [address] [place], [address] Chloride [Moles/Vol] 104 mmol/L Normal 98-108 [facility] Comment on above: Performed By: #### M 200.1000, L100.0100, L300.3900, L300.4310, L503.6005, L500.4050 ####[facility] [address] [place], [address] CO2 [Moles/Vol] 22.4 mmol/L Normal 21.0-32.0 [facility] Comment on above: Performed By: #### M 200.1000, L100.0100, L300.3900, L300.4310, L503.6005, L500.4050 ####[facility] [address] [place], [address] Creatinine [Mass/Vol] 1.04 mg/dL Normal 0.70-1.20 [facility] Comment on above: Performed By: #### M 200.1000, L100.0100, L300.3900, L300.4310, L503.6005, L500.4050 ####[facility] [address] [place], [address] ECRCL 79.39 ml/min Normal 50-250 [facility] Comment on above: Performed By: #### M 200.1000, L100.0100, L300.3900, L300.4310, L503.6005, L500.4050 ####[facility] [address] [place], [address] GAP 14 Normal 5-15 [facility] Comment on above: Performed By: #### M 200.1000, L100.0100, L300.3900, L300.4310, L503.6005, L500.4050 ####[facility] [address] [place], [address] GFR/1.73 sq M.predicted among non-blacks MDRD (S/P/Bld) [Vol rate/Area] 74 mL/min/{1.73_m2} Normal >60 [facility] Comment on above: Result Comment: mL/m in/1.73m2 CKD-EPI Creatinine Equation (2020) Performed By: #### M 200.1000, L100.0100, L300.3900, L300.4310, L503.6005, L500.4050 ####[facility] [address] [place], [address] Globulin (S) [Mass/Vol] 2.3 g/dL Normal 2.2-4.2 [facility] Comment on above: Performed By: #### M 200.1000, L100.0100, L300.3900, L300.4310, L503.6005, L500.4050 ####[facility] [address] [place], [address] Glucose [Mass/Vol] 195 mg/dL High 70-99 [facility] Comment on above: Performed By: #### M 200.1000, L100.0100, L300.3900, L300.4310, L503.6005, L500.4050 ####[facility] [address] [place], [address] Potassium [Moles/Vol] 3.8 mmol/L Normal 3.3-5.1 [facility] Comment on above: Performed By: #### M 200.1000, L100.0100, L300.3900, L300.4310, L503.6005, L500.4050 ####[facility] [address] [place], [address] Sodium [Moles/Vol] 141 mmol/L Normal 133-145 [facility] Comment on above: Performed By: #### M 200.1000, L100.0100, L300.3900, L300.4310, L503.6005, L500.4050 ####[facility] [address] [place], [address] T PROT 5.8 g/dL Low 5.9-8.4 [facility] Comment on above: Performed By: #### M 200.1000, L100.0100, L300.3900, L300.4310, L503.6005, L500.4050 ####[facility] [address] [place], [address] Urea nitrogen [Mass/Vol] 18 mg/dL Normal 4-19 [facility] Comment on above: Performed By: #### M 200.1000, L100.0100, L300.3900, L300.4310, L503.6005, L500.4050 ####[facility] [address] [place], [address] Emergency Department Summary on 02-02-2025 Emergency Department Summary Normal [facility] Eosinophil percentageOrdered By: Nicholas Galarza on 02-02-2025 Eosinophils/100 WBC (Bld) 0.6 % 0-5 [facility] Erythrocyte Sed Rateon 02-02 SED RATE 23 mm/hr High 0-20 [facility] Comment on above: Performed By: #### L 501.5200, L501.6710, L101.9900 ####[facility] [address] [place], [address] Erythrocyte distribution wid th ratioOrdered By: Nicholas Galarza on 02-02-2025 Erythrocyte distribution width (RBC) [Ratio] 13.6 % 11.6-14.6 [facility] Erythrocyte distribution wid th standard deviationOrdered By: Nicholas Galarza on 02-02-2025 Erythrocyte distribution width (RBC) [Ratio] 42.2 fl 35.1-43.9 [facility] Erythrocyte sedimentation ra teOrdered By: Karen White on 02-02-2025 ESR (Bld) [Velocity] 23 mm/h High 0-20 [facility] Foot 2 Viewson 02-02-2025 Foot 2 Views Normal [facility] Glomerular filtration rate ( GFR) estimation/1.73 sq m using serum, plasma, or whole bOrdered By: Nicholas Galarza on 02-02-2025 GFR/1.73 sq M.predicted among non-blacks MDRD (S/P/Bld) [Vol rate/Area] 74 mL/min/{1.73_m2} >60 [facility] Comment on above: mL/min/1.73m2 CKD-EP I Creatinine Equation (2020) H AND P Exam - Hospitaliston 02-02-2025 H&P Exam - Hospitalist Normal [facility] Hematocrit Auto (Bld) [Volum e fraction]Ordered By: Nicholas Galarza on 02-02-2025 Hematocrit (Bld) [Volume fraction] 33.5 % Low 40-54 [facility] Hemoglobin measurementOrdere d By: Nicholas Galarza on 02-02-2025 Hemoglobin (Bld) [Mass/Vol] 10.9 g/dL Low 13.0-16. 5 [facility] Immature granulocytes/100 WB C Auto (Bld)Ordered By: Nicholas Galarza on 02-02-2025 Immature granulocytes/100 WBC (Bld) 0.700 % 0.0-0.9 [facility] Comment on above: IG% - Immature Granu locytes (promyelocytes, myelocytes and metamyelocytes) > 1% indicates that a LEFT SHIFT is Present. International normalized rat io (INR) calculationOrdered By: Nicholas Galarza on 02-02-2025 INR Coag (Bld) [Relative time] 1.4 {INR} [facility] Ketones Test strip Ql (U)Ord ered By: Nicholas Galarza on 02-02-2025 Ketones Ql (U) Negative Negative [facility] Laboratory - Chemistry and C hemistry - challengeOrdered By: Nicholas Galarza on 02-02-2025 AST [Catalytic activity/Vol] 15 U/L <38 [facility] Lactic Acidon 02-02-2025 Lactate [Moles/Vol] 3.1 mmol/L Invalid Interpretation Code 0.0-2.0 [facility] Comment on above: Order Comment: Y Result Comment: Crit ical Result(s) Called at: 2106 by: EVON RAMANWinnie??Results read back by same. Performed By: #### M 200.1000, L100.0100, L300.3900, L300.4310, L503.6005, L500.4050 ####[facility] [address] [place], [address] MCV (mean corpuscular volume ) determinationOrdered By: Nicholas Galarza on 02-02-2025 MCV (RBC) [Entitic vol] 85.0 fL 80-94 [facility] Magnesiumon 02-02-2025 Magnesium [Mass/Vol] 0.9 mg/dL Invalid Interpretation Code 1.5-2.2 [facility] Comment on above: Order Comment: Comme nts: may add to ED labs Result Comment: Crit ical Result(s) Called at:2346 by: KIM MARTINEZ??Results read back by same. Performed By: #### L 501.5200, L501.6710, L101.9900 ####[facility] [address] [place], [place], [address] Magnesium measurement (mass/ volume)Ordered By: Karen Aly on 02-02-2025 Magnesium (Unsp spec) [Mass/Vol] 0.9 mg/dL Low 1.5-2.2 [facility] Comment on above: Critical Result(s) C alled at:2346 by: KIM ADRIAN Results read back by same. Mean corpuscular hemoglobin (MCH) determinationOrdered By: Nicholas Galarza on 02-02-2025 MCH (RBC) [Entitic mass] 27.7 pg 27.0-32.0 [facility] Mean corpuscular hemoglobin concentration (MCHC) determinationOrdered By: Nicholas Galarza on 02-02-2025 MCHC (RBC) [Mass/Vol] 32.5 g/dL 32-36 [facility] Mean platelet volume determi nationOrdered By: Nicholas Galarza on 02-02-2025 Platelet mean volume (Bld) [Entitic vol] 9.4 fL 6.2-12.0 [facility] Microscopic analysis of urin e for red blood cells (RBC)Ordered By: Nicholas Galarza on 02-02-2025 Microscopic analysis of urine for red blood cells (RBC) 5-10 SEEN /hpf 0-5 [facility] Monocyte percentageOrdered B y: Nicholas Galarza on 02-02-2025 Monocytes/100 WBC (Bld) 8.7 % 0-10 [facility] Mucus LM Ql (Urine sed)Order ed By: Nicholas Galarza on 02-02-2025 Mucus Ql (Urine sed) 0 SEEN /hpf [facility] Neutrophil percentageOrdered By: Nicholas Galarza on 02-02-2025 Neutrophils/100 WBC (Bld) 86.2 % High 47-70 [facility] Nitrite Test strip Ql (U)Ord ered By: Nicholas Galarza on 02-02-2025 Nitrite Ql (U) Negative Negative [facility] Nucleated red blood cell per centageOrdered By: Nicholas Galarza on 02-02-2025 Nucleated RBC/100 WBC (Bld) [Ratio] 0 % 0-5 [facility] Partial Thromboplast Timeon 02-02-2025 aPTT Coag (Bld) [Time] 34.0 s Normal 24.1-36.2 [facility] Comment on above: Performed By: #### M 200.1000, L100.0100, L300.3900, L300.4310, L503.6005, L500.4050 ####[facility] [address] [place], [place], [id number] Platelet countOrdered By: Jose Juan Galarza on 02-02-2025 Platelets (Bld) [#/Vol] 203 10*3/uL 150-450 [facility] Potassium measurement (mass/ volume)Ordered By: Nicholas Galarza on 02-02-2025 Potassium (Unsp spec) [Mass/Vol] 3.8 mmol/L 3.3-5.1 [facility] Protein Test strip Ql (U)Ord ered By: Nicholas Galarza on 02-02-2025 Protein Ql (U) 30 mg/dl High Negative [facility] Prothrombin Time w/INRon INR Coag (PPP) [Relative time] 1.4 {INR} Normal [facility] Comment on above: Performed By: #### M 200.1000, L100.0100, L300.3900, L300.4310, L503.6005, L500.4050 ####[facility] [address] [place], [address] PT Coag (PPP) [Time] 17.3 s High 11.7-14.9 [facility] Comment on above: Performed By: #### M 200.1000, L100.0100, L300.3900, L300.4310, L503.6005, L500.4050 ####[facility] [address] [facility] [place], [address] Prothrombin timeOrdered By: Nicholas Galarza on 02-02-2025 PT Coag (PPP) [Time] 17.3 s High 11.7-14.9 [facility] RBC Auto (Bld) [#/Vol]Ordere d By: Nicholas Galarza on 02-02-2025 RBC (Bld) [#/Vol] 3.94 10*6/uL Low 4.6-6.2 [facility] Serum creatinine measurement (mass/volume)Ordered By: Nicholas Galarza on 02-02-2025 Creatinine [Mass/Vol] 1.04 mg/dL 0.70-1.20 [facility] Serum globulin measurementOr dered By: Nicholas Galarza on 02-02-2025 Globulin (S) [Mass/Vol] 2.3 g/dL 2.2-4.2 [facility] Serum glucose measurement (m ass/volume)Ordered By: Nicholas Galarza on 02-02-2025 Glucose [Mass/Vol] 195 mg/dL High 70-99 [facility] Serum or plasma C reactive p rotein measurement (mass/volume)Ordered By: Karen Aly on 02-02-2025 CRP [Mass/Vol] 94.50 mg/L High 0.0-3.0 [facility] Serum or plasma alanine davis otransferase (ALT) measurementOrdered By: Nicholas Galarza on 02-02-2025 ALT [Catalytic activity/Vol] 10 U/L <47 [facility] Serum or plasma albumin antoine urement (mass/volume)Ordered By: Nicholas Galarza on 02-02-2025 Albumin [Mass/Vol] 3.5 g/dL 3.4-4.8 [facility] Serum or plasma albumin/glob ulin mass ratioOrdered By: Nicholas Galarza on 02-02-2025 Albumin/Globulin [Mass ratio] 1.5 {ratio} 0.9-2.4 [facility] Serum or plasma alkaline marilin sphatase measurementOrdered By: Nicholas Galarza on 02-02-2025 ALP [Catalytic activity/Vol] 115 U/L 40-129 [facility] Serum or plasma calcium antoine urement (mass/volume)Ordered By: Nicholas Galarza on 02-02-2025 Calcium [Mass/Vol] 8.7 mg/dL 7.6-11.0 [facility] Serum or plasma urea nitroge n measurement (mass/volume)Ordered By: Nicholas Galarza on 02-02-2025 Urea nitrogen [Mass/Vol] 18 mg/dL 4-19 [facility] Sodium levelOrdered By: Supriya Galarza on 02-02-2025 Sodium [Moles/Vol] 141 mmol/L 133-145 [facility] Squamous epithelial cells de tection in urine sediment by light microscopyOrdered By: Nicholas Galarza on 02-02-2025 Epithelial cells.squamous LM Ql (Urine sed) 0-5 SEEN /hpf 0-5 [facility] Total proteinOrdered By: Hermes Galarza on 02-02-2025 Protein [Mass/Vol] 5.8 g/dL Low 5.9-8.4 [facility] Urinalysis, Completeon 02-02 BACTERIA 1+ /hpf Normal None Seen [facility] Comment on above: Order Comment: LEILA TER SPECIMEN Performed By: #### L 400.0001, ####[facility] [address] [place], [address] EPI,SQUAMOUS 0-5 SEEN Normal 0-5 [facility] Comment on above: Order Comment: LEILA TER SPECIMEN Performed By: #### L 400.0001, ####[facility] [address] [place], [address] RBC 5-10 SEEN Normal 0-5 [facility] Comment on above: Order Comment: LEILA TER SPECIMEN Performed By: #### L 400.0001, M100.2200 ####[facility] [address] [place], [address] WBC 5-10 SEEN Normal 0-5 [facility] Comment on above: Order Comment: LEILA TER SPECIMEN Performed By: #### L 400.0001, M100.2200 ####[facility] [address] [place], [address] Mucus Ql (Urine sed) 0 SEEN Normal [facility] Comment on above: Order Comment: LEILA TER SPECIMEN Performed By: #### L 400.0001, M100.2200 ####[facility] [address] [place], [address] Urine Legionella pneumophila antigen detectionOrdered By: Karen White on 02-02-2025 L. pneumophila Ag Ql (U) [facility] Urine clarityOrdered By: Hermes Galarza on 02-02-2025 Clarity (U) Clear Clear [facility] Urine color determinationOrd ered By: Nicholas Galarza on 02-02-2025 Color (U) Yellow Yellow [facility] Urine cultureOrdered By: Hermes Galarza on 02-02-2025 Bacteria identified Cx Nom (U) Culture exhibits no growth. [facility] Urine glucose detectionOrder ed By: Nicholas Galarza on 02-02-2025 Glucose Ql (U) 250 mg/dl High Normal [facility] Urine leukocyte esterase det ection by dipstickOrdered By: Nicholas Galarza on 02-02-2025 Leukocyte esterase Test strip Ql (U) Negative Negative [facility] Urine pHOrdered By: Nicholas ron on 02-02-2025 pH (U) 5.0 [pH] 5.0 - 8.0 [facility] Urine sediment bacteria coun t by microscopy (number/high power field)Ordered By: Nicholas Galarza on 02-02-2025 Bacteria LM.HPF (Urine sed) [#/Area] 1 /[HPF] None Seen [facility] Urine specific gravity measu rementOrdered By: Nicholas Galarza on 02-02-2025 Specific gravity (U) [Rel density] 1.015 1.002-1.03 0 [facility] Urine urobilinogen measureme ntOrdered By: Nicholas Galarza on 02-02-2025 Urobilinogen Ql (U) Normal mg/dl Normal [facility] White blood cell (WBC) count Ordered By: Nicholas Galarza on 02-02-2025 WBC (Bld) [#/Vol] 13.9 10*3/uL High 4.4-11.0 [facility] White blood cell countOrdere d By: Nicholas Galarza on 02-02-2025 White blood cell count 5-10 SEEN /hpf 0-5 [facility] Anion gap in Serum or Plasma Ordered By: Walter Becker on 12-22-2024 Anion gap [Moles/Vol] 10 mmol/L 5-15 [facility] Automated blood erythrocyte countOrdered By: Walter Becker on 12-22-2024 RBC (Bld) [#/Vol] 4.43 10*6/uL Low 4.6-6.2 [facility] Comment on above: Order Comment: 215.2 Performed By: #### L 500.4050, L100.0500, L501.9985 ####[facility] [address] [place], [place], [id number] Automated blood hematocrit ( percentage)Ordered By: Walter Becker on 12-22-2024 Hematocrit (Bld) [Volume fraction] 37.9 % Low 40-54 [facility] Comment on above: Order Comment: 215.2 Performed By: #### L 500.4050, L100.0500, L501.9985 ####[facility] [address] [place], [place], [id number] BUN/creatinine ratioOrdered By: Walter Becker on 12-22-2024 Urea nitrogen/Creatinine [Mass ratio] 19.8 mg/mg 10-20 [facility] Bilirubin, totalOrdered By: Walter Becker on 12-22-2024 Bilirubin [Mass/Vol] 0.43 mg/dL 0.00-1.30 [facility] CBC-Complete Blood Cnt No Di ffon 12-22-2024 RDW SD 41.9 fl Normal 35.1-43.9 [facility] Comment on above: Order Comment: 215.2 Performed By: #### L 500.4050, L100.0500, L501.9985 ####[facility] [address] [place], [address] Carbon dioxide, total [Moles /volume] in Central venous bloodOrdered By: Walter Becker on 12-22-2024 CO2 [Moles/Vol] 26.7 mmol/L 21.0-32.0 [facility] Chloride assayOrdered By: Horner on 12-22-2024 Chloride [Moles/Vol] 103 mmol/L 98-108 [facility] Comprehensive Metabolic Prof ilon 12-22-2024 Albumin [Mass/Vol] 3.6 g/dL Normal 3.4-4.8 [facility] Comment on above: Order Comment: 215.2 Performed By: #### L 500.4050, L100.0500, L501.9985 ####[facility] [address] [place], [address] Albumin/Globulin [Mass ratio] 1.7 {ratio} Normal 0.9-2.4 [facility] Comment on above: Order Comment: 215.2 Performed By: #### L 500.4050, L100.0500, L501.9985 ####[facility] [address] [place], [address] ALK PHOS 104 U/L Normal 40-129 [facility] Comment on above: Order Comment: 215.2 Performed By: #### L 500.4050, L100.0500, L501.9985 ####[facility] [address] [place], [address] ALT [Catalytic activity/Vol] 13 U/L Normal <=46 [facility] Comment on above: Order Comment: 215.2 Performed By: #### L 500.4050, L100.0500, L501.9985 ####[facility] [address] [place], [address] AST [Catalytic activity/Vol] 14 U/L Normal <=37 [facility] Comment on above: Order Comment: 215.2 Performed By: #### L 500.4050, L100.0500, L501.9985 ####[facility] [address] [place], [address] Bilirubin [Mass/Vol] 0.43 mg/dL Normal 0.00-1.30 [facility] Comment on above: Order Comment: 215.2 Performed By: #### L 500.4050, L100.0500, L501.9985 ####[facility] [address] [place], [address] BUN/CRE 19.8 RATIO Normal 10-20 [facility] Comment on above: Order Comment: 215.2 Performed By: #### L 500.4050, L100.0500, L501.9985 ####[facility] [address] [place], [address] Calcium [Mass/Vol] 9.5 mg/dL Normal 7.6-11.0 [facility] Comment on above: Order Comment: 215.2 Performed By: #### L 500.4050, L100.0500, L501.9985 ####[facility] [address] [place], [address] Chloride [Moles/Vol] 103 mmol/L Normal 98-108 [facility] Comment on above: Order Comment: 215.2 Performed By: #### L 500.4050, L100.0500, L501.9985 ####[facility] [address] [place], [address] CO2 [Moles/Vol] 26.7 mmol/L Normal 21.0-32.0 [facility] Comment on above: Order Comment: 215.2 Performed By: #### L 500.4050, L100.0500, L501.9985 ####[facility] [address] [place], [address] Creatinine [Mass/Vol] 1.04 mg/dL Normal 0.70-1.20 [facility] Comment on above: Order Comment: 215.2 Performed By: #### L 500.4050, L100.0500, L501.9985 ####[facility] [address] [place], [address] GAP 10 Normal 5-15 [facility] Comment on above: Order Comment: 215.2 Performed By: #### L 500.4050, L100.0500, L501.9985 ####[facility] [address] [place], [address] GFR/1.73 sq M.predicted among non-blacks MDRD (S/P/Bld) [Vol rate/Area] 74 mL/min/{1.73_m2} Normal >60 [facility] Comment on above: Order Comment: 215.2 Result Comment: mL/m in/1.73m2 CKD-EPI Creatinine Equation (2020) Performed By: #### L 500.4050, L100.0500, L501.9985 ####[facility] [address] [place], [address] Globulin (S) [Mass/Vol] 2.2 g/dL Normal 2.2-4.2 [facility] Comment on above: Order Comment: 215.2 Performed By: #### L 500.4050, L100.0500, L501.9985 ####[facility] [address] [place], [address] Glucose [Mass/Vol] 131 mg/dL High 70-99 [facility] Comment on above: Order Comment: 215.2 Performed By: #### L 500.4050, L100.0500, L501.9985 ####[facility] [address] [place], [address] Potassium [Moles/Vol] 4.2 mmol/L Normal 3.3-5.1 [facility] Comment on above: Order Comment: 215.2 Performed By: #### L 500.4050, L100.0500, L501.9985 ####[facility] [address] [place], [address] Sodium [Moles/Vol] 141 mmol/L Normal 133-145 [facility] Comment on above: Order Comment: 215.2 Performed By: #### L 500.4050, L100.0500, L501.9985 ####[facility] [address] [place], [address] T PROT 5.8 g/dL Low 5.9-8.4 [facility] Comment on above: Order Comment: 215.2 Performed By: #### L 500.4050, L100.0500, L501.9985 ####[facility] [address] [place], [address] Urea nitrogen [Mass/Vol] 21 mg/dL High 4-19 [facility] Comment on above: Order Comment: 215.2 Performed By: #### L 500.4050, L100.0500, L501.9985 ####[facility] [address] [place], [address] Erythrocyte distribution wid th ratioOrdered By: Walter Becker on 12-22-2024 Erythrocyte distribution width (RBC) [Ratio] 13.5 % Normal 11.6-14.6 [facility] Comment on above: Order Comment: 215.2 Performed By: #### L 500.4050, L100.0500, L501.9985 ####[facility] [address] [place], [place], [id number] Erythrocyte distribution wid th standard deviationOrdered By: Walter Becker on 12-22-2024 Erythrocyte distribution width (RBC) [Ratio] 41.9 fl 35.1-43.9 [facility] Glomerular filtration rate ( GFR) estimation/1.73 sq m using serum, plasma, or whole bOrdered By: Walter Becker on 12-22-2024 GFR/1.73 sq M.predicted among non-blacks MDRD (S/P/Bld) [Vol rate/Area] 74 mL/min/{1.73_m2} >60 [facility] Comment on above: mL/min/1.73m2 CKD-EP I Creatinine Equation (2020) Hemoglobin A1con 12-22-2024 HbA1c (Bld) [Mass fraction] 7.0 % High <=5.6 [facility] Comment on above: Order Comment: 215.2 Result Comment: Norm al < 5.7 % Prediabetic 5.7 - 6.4 % Diabetic >or= 6.5 % Please note range changes. Performed By: #### L 500.4050, L100.0500, L501.9985 ####[facility] [address] [place], [place], [id number] Hemoglobin A1c percentageOrd ered By: Walter Becker on 12-22-2024 HbA1c (Bld) [Mass fraction] 7.0 % High <5.7 [facility] Comment on above: Normal < 5.7 % Predi abetic 5.7 - 6.4 % Diabetic >or= 6.5 % Please note range changes. Hemoglobin measurementOrdere d By: Walter Becker on 12-22-2024 Hemoglobin (Bld) [Mass/Vol] 12.4 g/dL Low 13.0-16. 5 [facility] Comment on above: Order Comment: 215.2 Performed By: #### L 500.4050, L100.0500, L501.9985 ####[facility] [address] [place], [place], [id number] Laboratory - Chemistry and C hemistry - challengeOrdered By: Walter Becker on 12-22-2024 AST [Catalytic activity/Vol] 14 U/L <38 [facility] MCV (mean corpuscular volume ) determinationOrdered By: Walter Becker on 12-22-2024 MCV (RBC) [Entitic vol] 85.6 fL Normal 80-94 [facility] Comment on above: Order Comment: 215.2 Performed By: #### L 500.4050, L100.0500, L501.9985 ####[facility] [address] [place], [place], [id number] Mean corpuscular hemoglobin (MCH) determinationOrdered By: Walter Becker on 12-22-2024 MCH (RBC) [Entitic mass] 28.0 pg Normal 27.0-32.0 [facility] Comment on above: Order Comment: 215.2 Performed By: #### L 500.4050, L100.0500, L501.9985 ####[facility] [address] [place], [place], [address] Mean corpuscular hemoglobin concentration (MCHC) determinationOrdered By: Walter Becker on 12-22-2024 MCHC (RBC) [Mass/Vol] 32.7 g/dL Normal 32-36 [facility] Comment on above: Order Comment: 215.2 Performed By: #### L 500.4050, L100.0500, L501.9985 ####[facility] [address] [place], [place], [id number] Mean platelet volume determi nationOrdered By: Walter Becker on 12-22-2024 Platelet mean volume (Bld) [Entitic vol] 9.5 fL Normal 6.2-12.0 [facility] Comment on above: Order Comment: 215.2 Performed By: #### L 500.4050, L100.0500, L501.9985 ####[facility] [address] [place], [place], [id number] No Panel InformationOrdered By: Walter Becker on 12-22-2024 14 U/L <38 [facility] Platelet countOrdered By: Horner on 12-22-2024 Platelets (Bld) [#/Vol] 214 10*3/uL Normal 150-450 [facility] Comment on above: Order Comment: 215.2 Performed By: #### L 500.4050, L100.0500, L501.9985 ####[facility] [address] [place], [address] Potassium measurement (mass/ volume)Ordered By: Walter Becker on 12-22-2024 Potassium (Unsp spec) [Mass/Vol] 4.2 mmol/L 3.3-5.1 [facility] Serum creatinine measurement (mass/volume)Ordered By: Walter Becker on 12-22-2024 Creatinine [Mass/Vol] 1.04 mg/dL 0.70-1.20 [facility] Serum globulin measurementOr dered By: Walter Becker on 12-22-2024 Globulin (S) [Mass/Vol] 2.2 g/dL 2.2-4.2 [facility] Serum glucose measurement (m ass/volume)Ordered By: Walter Becker on 12-22-2024 Glucose [Mass/Vol] 131 mg/dL High 70-99 [facility] Serum or plasma alanine davis otransferase (ALT) measurementOrdered By: Walter Becker on 12-22-2024 ALT [Catalytic activity/Vol] 13 U/L <47 [facility] Serum or plasma albumin antoine urement (mass/volume)Ordered By: Walter Becker on 12-22-2024 Albumin [Mass/Vol] 3.6 g/dL 3.4-4.8 [facility] Serum or plasma albumin/glob ulin mass ratioOrdered By: Walter Becker on 12-22-2024 Albumin/Globulin [Mass ratio] 1.7 {ratio} 0.9-2.4 [facility] Serum or plasma alkaline marilin sphatase measurementOrdered By: Walter Becker on 12-22-2024 ALP [Catalytic activity/Vol] 104 U/L 40-129 [facility] Serum or plasma calcium antoine urement (mass/volume)Ordered By: Walter Becker on 12-22-2024 Calcium [Mass/Vol] 9.5 mg/dL 7.6-11.0 [facility] Serum or plasma urea nitroge n measurement (mass/volume)Ordered By: Walter Becker on 12-22-2024 Urea nitrogen [Mass/Vol] 21 mg/dL High 4-19 [facility] Sodium levelOrdered By: Walter Becker on 12-22-2024 Sodium [Moles/Vol] 141 mmol/L 133-145 [facility] Total proteinOrdered By: Crystal Becker on 12-22-2024 Protein [Mass/Vol] 5.8 g/dL Low 5.9-8.4 [facility] White blood cell (WBC) count Ordered By: Walter Becker on 12-22-2024 WBC (Bld) [#/Vol] 9.4 10*3/uL Normal 4.4-11.0 [facility] Comment on above: Order Comment: 215.2 Performed By: #### L 500.4050, L100.0500, L501.9985 ####[facility] [address] [place], [address] Vitamin D,25 Hydroxyon 12-16 Vitamin D 25-OH 31.8 ng/mL Normal 30-100 [facility] Comment on above: Order Comment: 215.2 Result Comment: Laure min D StatusDeficiency: <20 ng/mL (50nmol/L)Insufficiency: 20-30 ng/mL (50-75 nmol/L)Sufficiency: 30-100 ng/mL (75-250 nmol/L)Toxicity: >100 ng/mL (>250 nmol/L) Performed By: #### L 506.1001 ####[facility] [address] [place], [address] Urine Cultureon 11-25-2024 URC Culture exhibits no growth. Normal [facility] Comment on above: Performed By: #### L 400.0001, L100.0500, M100.2200, L500.4050 ####[facility] [address] [place], [address] Anion gap in Serum or Plasma Ordered By: Walter Becker on 11-24-2024 Anion gap [Moles/Vol] 14 mmol/L 5-15 [facility] BUN/creatinine ratioOrdered By: Walter Becker on 11-24-2024 Urea nitrogen/Creatinine [Mass ratio] 19.5 mg/mg 10- [facility] Bilirubin Test strip Ql (U)O rdered By: Walter Becker on 11-24-2024 Bilirubin Ql (U) Negative Negative [facility] Bilirubin, totalOrdered By: Walter Becker on 11-24-2024 Bilirubin [Mass/Vol] 0.34 mg/dL 0.00-1.30 [facility] CBC-Complete Blood Cnt No Di ffon 11-24-2024 Erythrocyte distribution width (RBC) [Ratio] 13.4 % Normal 11.6-14.6 [facility] Comment on above: Order Comment: 215.2 Performed By: #### L 400.0001, L100.0500, M100.2200, L500.4050 ####[facility] [address] [place], [address] Hematocrit (Bld) [Volume fraction] 38.0 % Low 40-54 [facility] Comment on above: Order Comment: 215.2 Performed By: #### L 400.0001, L100.0500, M100.2200, L500.4050 ####[facility] [address] [place], [address] Hemoglobin (Bld) [Mass/Vol] 12.1 g/dL Low 13.0-16. 5 [facility] Comment on above: Order Comment: 215.2 Performed By: #### L 400.0001, L100.0500, M100.2200, L500.4050 ####[facility] [address] [place], [address] MCH (RBC) [Entitic mass] 27.6 pg Normal 27.0-32.0 [facility] Comment on above: Order Comment: 215.2 Performed By: #### L 400.0001, L100.0500, M100.2200, L500.4050 ####[facility] [address] [place], [address] MCHC (RBC) [Mass/Vol] 31.8 g/dL Low 32-36 [facility] Comment on above: Order Comment: 215.2 Performed By: #### L 400.0001, L100.0500, M100.2200, L500.4050 ####[facility] [address] [place], [address] MCV (RBC) [Entitic vol] 86.6 fL Normal 80-94 [facility] Comment on above: Order Comment: 215.2 Performed By: #### L 400.0001, L100.0500, M100.2200, L500.4050 ####[facility] [address] [place], [address] Platelet mean volume (Bld) [Entitic vol] 9.4 fL Normal 6.2-12.0 [facility] Comment on above: Order Comment: 215.2 Performed By: #### L 400.0001, L100.0500, M100.2200, L500.4050 ####[facility] [address] [place], [address] Platelets (Bld) [#/Vol] 200 10*3/uL Normal 150-450 [facility] Comment on above: Order Comment: 215.2 Performed By: #### L 400.0001, L100.0500, M100.2200, L500.4050 ####[facility] [address] [place], [address] RBC (Bld) [#/Vol] 4.39 10*6/uL Low 4.6-6.2 [facility] Comment on above: Order Comment: 215.2 Performed By: #### L 400.0001, L100.0500, M100.2200, L500.4050 ####[facility] [address] [place], [address] RDW SD 41.4 fl Normal 35.1-43.9 [facility] Comment on above: Order Comment: 215.2 Performed By: #### L 400.0001, L100.0500, M100.2200, L500.4050 ####[facility] [address] [place], [address] WBC (Bld) [#/Vol] 8.9 10*3/uL Normal 4.4-11.0 [facility] Comment on above: Order Comment: 215.2 Performed By: #### L 400.0001, L100.0500, M100.2200, L500.4050 ####[facility] [address] [place], [address] Carbon dioxide, total [Moles /volume] in Central venous bloodOrdered By: Walter Becker on 11-24-2024 CO2 [Moles/Vol] 21.7 mmol/L 21.0-32.0 [facility] Chloride assayOrdered By: Horner on 11-24-2024 Chloride [Moles/Vol] 105 mmol/L 98-108 [facility] Comprehensive Metabolic Prof ilon 11-24-2024 Albumin [Mass/Vol] 3.3 g/dL Low 3.4-4.8 [facility] Comment on above: Order Comment: 215.2 Performed By: #### L 400.0001, L100.0500, M100.2200, L500.4050 ####[facility] [address] [place], [address] Albumin/Globulin [Mass ratio] 1.6 {ratio} Normal 0.9-2.4 [facility] Comment on above: Order Comment: 215.2 Performed By: #### L 400.0001, L100.0500, M100.2200, L500.4050 ####[facility] [address] [place], [address] ALK PHOS 101 U/L Normal 40-129 [facility] Comment on above: Order Comment: 215.2 Performed By: #### L 400.0001, L100.0500, M100.2200, L500.4050 ####[facility] [address] [place], [address] ALT [Catalytic activity/Vol] 14 U/L Normal <=46 [facility] Comment on above: Order Comment: 215.2 Performed By: #### L 400.0001, L100.0500, M100.2200, L500.4050 ####[facility] [address] [place], [address] AST [Catalytic activity/Vol] 16 U/L Normal <=37 [facility] Comment on above: Order Comment: 215.2 Performed By: #### L 400.0001, L100.0500, M100.2200, L500.4050 ####[facility] [address] [place], [address] Bilirubin [Mass/Vol] 0.34 mg/dL Normal 0.00-1.30 [facility] Comment on above: Order Comment: 215.2 Performed By: #### L 400.0001, L100.0500, M100.2200, L500.4050 ####[facility] [address] [place], [address] BUN/CRE 19.5 RATIO Normal 10-20 [facility] Comment on above: Order Comment: 215.2 Performed By: #### L 400.0001, L100.0500, M100.2200, L500.4050 ####[facility] [address] [place], [address] Calcium [Mass/Vol] 8.9 mg/dL Normal 7.6-11.0 [facility] Comment on above: Order Comment: 215.2 Performed By: #### L 400.0001, L100.0500, M100.2200, L500.4050 ####[facility] [address] [place], [address] Chloride [Moles/Vol] 105 mmol/L Normal 98-108 [facility] Comment on above: Order Comment: 215.2 Performed By: #### L 400.0001, L100.0500, M100.2200, L500.4050 ####[facility] [address] [place], [address] CO2 [Moles/Vol] 21.7 mmol/L Normal 21.0-32.0 [facility] Comment on above: Order Comment: 215.2 Performed By: #### L 400.0001, L100.0500, M100.2200, L500.4050 ####[facility] [address] [place], [address] Creatinine [Mass/Vol] 1.15 mg/dL Normal 0.70-1.20 [facility] Comment on above: Order Comment: 215.2 Performed By: #### L 400.0001, L100.0500, M100.2200, L500.4050 ####[facility] [address] [place], [address] GAP 14 Normal 5-15 [facility] Comment on above: Order Comment: 215.2 Performed By: #### L 400.0001, L100.0500, M100.2200, L500.4050 ####[facility] [address] [place], [address] GFR/1.73 sq M.predicted among non-blacks MDRD (S/P/Bld) [Vol rate/Area] 66 mL/min/{1.73_m2} Normal >60 [facility] Comment on above: Order Comment: 215.2 Result Comment: mL/m in/1.73m2 CKD-EPI Creatinine Equation (2020) Performed By: #### L 400.0001, L100.0500, M100.2200, L500.4050 ####[facility] [address] [place], [address] Globulin (S) [Mass/Vol] 2.0 g/dL Low 2.2-4.2 [facility] Comment on above: Order Comment: 215.2 Performed By: #### L 400.0001, L100.0500, M100.2200, L500.4050 ####[facility] [address] [place], [address] Glucose [Mass/Vol] 139 mg/dL High 70-99 [facility] Comment on above: Order Comment: 215.2 Performed By: #### L 400.0001, L100.0500, M100.2200, L500.4050 ####[facility] [address] [place], [address] Potassium [Moles/Vol] 4.2 mmol/L Normal 3.3-5.1 [facility] Comment on above: Order Comment: 215.2 Performed By: #### L 400.0001, L100.0500, M100.2200, L500.4050 ####[facility] [address] [place], [address] Sodium [Moles/Vol] 141 mmol/L Normal 133-145 [facility] Comment on above: Order Comment: 215.2 Performed By: #### L 400.0001, L100.0500, M100.2200, L500.4050 ####[facility] [address] [place], [address] T PROT 5.3 g/dL Low 5.9-8.4 [facility] Comment on above: Order Comment: 215.2 Performed By: #### L 400.0001, L100.0500, M100.2200, L500.4050 ####[facility] [address] [place], [address] Urea nitrogen [Mass/Vol] 22 mg/dL High 4-19 [facility] Comment on above: Order Comment: 215.2 Performed By: #### L 400.0001, L100.0500, M100.2200, L500.4050 ####[facility] [address] [place], [address] Erythrocyte distribution wid th ratioOrdered By: Walter Becker on 11-24-2024 Erythrocyte distribution width (RBC) [Ratio] 13.4 % 11.6-14.6 [facility] Erythrocyte distribution wid th standard deviationOrdered By: Walter Becker on 11-24-2024 Erythrocyte distribution width (RBC) [Ratio] 41.4 fl 35.1-43.9 [facility] Glomerular filtration rate ( GFR) estimation/1.73 sq m using serum, plasma, or whole bOrdered By: Walter Becker on 11-24-2024 GFR/1.73 sq M.predicted among non-blacks MDRD (S/P/Bld) [Vol rate/Area] 66 mL/min/{1.73_m2} >60 [facility] Comment on above: mL/min/1.73m2 CKD-EP I Creatinine Equation (2020) Hematocrit Auto (Bld) [Volum e fraction]Ordered By: Walter Becker on 11-24-2024 Hematocrit (Bld) [Volume fraction] 38.0 % Low 40-54 [facility] Hemoglobin measurementOrdere d By: Walter Becker on 11-24-2024 Hemoglobin (Bld) [Mass/Vol] 12.1 g/dL Low 13.0-16. 5 [facility] Ketones Test strip Ql (U)Ord ered By: Walter Becker on 11-24-2024 Ketones Ql (U) Negative Negative [facility] Laboratory - Chemistry and C hemistry - challengeOrdered By: Walter Becker on 11-24-2024 AST [Catalytic activity/Vol] 16 U/L <38 [facility] MCV (mean corpuscular volume ) determinationOrdered By: Walter Becker on 11-24-2024 MCV (RBC) [Entitic vol] 86.6 fL 80-94 [facility] Mean corpuscular hemoglobin (MCH) determinationOrdered By: Walter Becker on 11-24-2024 MCH (RBC) [Entitic mass] 27.6 pg 27.0-32.0 [facility] Mean corpuscular hemoglobin concentration (MCHC) determinationOrdered By: Walter Becker on 11-24-2024 MCHC (RBC) [Mass/Vol] 31.8 g/dL Low 32-36 [facility] Mean platelet volume determi nationOrdered By: Waltre Becker on 11-24-2024 Platelet mean volume (Bld) [Entitic vol] 9.4 fL 6.2-12.0 [facility] Microscopic analysis of urin e for red blood cells (RBC)Ordered By: Walter Becker on 11-24-2024 Microscopic analysis of urine for red blood cells (RBC) 0 SEEN /hpf 0-5 [facility] Mucus LM Ql (Urine sed)Order ed By: Walter Becker on 11-24-2024 Mucus Ql (Urine sed) 0 SEEN /hpf [facility] Nitrite Test strip Ql (U)Ord ered By: Walter Becker on 11-24-2024 Nitrite Ql (U) Negative Negative [facility] No Panel InformationOrdered By: Walter Becker on 11-24-2024 16 U/L <38 [facility] Platelet countOrdered By: Horner on 11-24-2024 Platelets (Bld) [#/Vol] 200 10*3/uL 150-450 [facility] Potassium measurement (mass/ volume)Ordered By: Walter Becker on 11-24-2024 Potassium (Unsp spec) [Mass/Vol] 4.2 mmol/L 3.3-5.1 [facility] Protein Test strip Ql (U)Ord ered By: Walter Becker on 11-24-2024 Protein Ql (U) Negative Negative [facility] RBC Auto (Bld) [#/Vol]Ordere d By: Walter Becker on 11-24-2024 RBC (Bld) [#/Vol] 4.39 10*6/uL Low 4.6-6.2 [facility] Serum creatinine measurement (mass/volume)Ordered By: Walter Becker on 11-24-2024 Creatinine [Mass/Vol] 1.15 mg/dL 0.70-1.20 [facility] Serum globulin measurementOr dered By: Walter Becker on 11-24-2024 Globulin (S) [Mass/Vol] 2.0 g/dL Low 2.2-4.2 [facility] Serum glucose measurement (m ass/volume)Ordered By: Walter Becker on 11-24-2024 Glucose [Mass/Vol] 139 mg/dL High 70-99 [facility] Serum or plasma alanine davis otransferase (ALT) measurementOrdered By: Walter Becker on 11-24-2024 ALT [Catalytic activity/Vol] 14 U/L <47 [facility] Serum or plasma albumin antoine urement (mass/volume)Ordered By: Walter Becker on 11-24-2024 Albumin [Mass/Vol] 3.3 g/dL Low 3.4-4.8 [facility] Serum or plasma albumin/glob ulin mass ratioOrdered By: Walter Becker on 11-24-2024 Albumin/Globulin [Mass ratio] 1.6 {ratio} 0.9-2.4 [facility] Serum or plasma alkaline marilin sphatase measurementOrdered By: Walter Becker on 11-24-2024 ALP [Catalytic activity/Vol] 101 U/L 40-129 [facility] Serum or plasma calcium antoine urement (mass/volume)Ordered By: Walter Becker on 11-24-2024 Calcium [Mass/Vol] 8.9 mg/dL 7.6-11.0 [facility] Serum or plasma urea nitroge n measurement (mass/volume)Ordered By: Walter Becker on 11-24-2024 Urea nitrogen [Mass/Vol] 22 mg/dL High 4-19 [facility] Sodium levelOrdered By: Walter Becker on 11-24-2024 Sodium [Moles/Vol] 141 mmol/L 133-145 [facility] Squamous epithelial cells de tection in urine sediment by light microscopyOrdered By: Walter Becker on 11-24-2024 Epithelial cells.squamous LM Ql (Urine sed) 0 SEEN /hpf 0-5 [facility] Total proteinOrdered By: Crystal Becker on 11-24-2024 Protein [Mass/Vol] 5.3 g/dL Low 5.9-8.4 [facility] Urinalysis, Completeon 11-24 WBC 0-5 SEEN Normal 0-5 [facility] Comment on above: Order Comment: LEILA TER SPECIMEN Performed By: #### L 400.0001, L100.0500, M100.2200, L500.4050 ####[facility] [address] [place], [address] BACTERIA 0 SEEN Normal None Seen [facility] Comment on above: Order Comment: LEILA TER SPECIMEN Performed By: #### L 400.0001, L100.0500, M100.2200, L500.4050 ####[facility] [address] [place], [address] EPI,SQUAMOUS 0 SEEN Normal 0-5 [facility] Comment on above: Order Comment: LEILA TER SPECIMEN Performed By: #### L 400.0001, L100.0500, M100.2200, L500.4050 ####[facility] [address] [place], [address] Mucus Ql (Urine sed) 0 SEEN Normal [facility] Comment on above: Order Comment: LEILA TER SPECIMEN Performed By: #### L 400.0001, L100.0500, M100.2200, L500.4050 ####[facility] [address] [place], [address] RBC 0 SEEN Normal 0-5 [facility] Comment on above: Order Comment: LEILA TER SPECIMEN Performed By: #### L 400.0001, L100.0500, M100.2200, L500.4050 ####[facility] [address] [place], [address] Urine clarityOrdered By: Crystal Becker on 11-24-2024 Clarity (U) Clear Clear [facility] Urine color determinationOrd ered By: Walter Becker on 11-24-2024 Color (U) Yellow Yellow [facility] Urine cultureOrdered By: Crystal Becker on 11-24-2024 Bacteria identified Cx Nom (U) Culture exhibits no growth. [facility] Urine glucose detectionOrder ed By: Walter Becker on 11-24-2024 Glucose Ql (U) Normal mg/dl Normal [facility] Urine leukocyte esterase det ection by dipstickOrdered By: Walter Becker on 11-24-2024 Leukocyte esterase Test strip Ql (U) Negative Negative [facility] Urine pHOrdered By: Walter floyd on 11-24-2024 pH (U) 6.0 [pH] 5.0 - 8.0 [facility] Urine sediment bacteria coun t by microscopy (number/high power field)Ordered By: Walter Becker on 11-24-2024 Bacteria LM.HPF (Urine sed) [#/Area] 0 /[HPF] None Seen [facility] Urine specific gravity measu rementOrdered By: Walter Becker on 11-24-2024 Specific gravity (U) [Rel density] 1.010 1.002-1.03 0 [facility] Urine urobilinogen measureme ntOrdered By: Walter Becker on 11-24-2024 Urobilinogen Ql (U) Normal mg/dl Normal [facility] White blood cell (WBC) count Ordered By: Walter Becker on 11-24-2024 WBC (Bld) [#/Vol] 8.9 10*3/uL 4.4-11.0 [facility] White blood cell countOrdere d By: Walter Becker on 11-24-2024 White blood cell count 0-5 SEEN /hpf 0-5 [facility] CNPNon 11-06-2024 CNPN Telephone (4CQ) RICHARD ROY ([id number]) 1945 M Date Time Provider Department 11/06/24 ABDULAZIZ CALDERA 4CQ During your visit today, we recorded the following information about you: Ann Raymond 11/06/2024 10:55 AM Signed Spoke with spouse as patient is over due for visit with PCP , stated patient is at [facility] in [place]. We did not remove PCP. Abdulaziz Caldera [...] time a week. - blood sugar diagnostic (orangutrans ULTRA TEST) test strip Test blood sugar(s) [...] by AMADA COHN on 11/06/[address] [facility] Cardiology Visit Reporton Cardiology Visit Report Normal [facility] Calculated very low density lipoprotein (VLDL) cholesterol measurementOrdered By: Walter Becker on 10-05-2024 VLDL Cholesterol 41 mg/dL High 5-40 [facility] LDL calc ser/plasOrdered By: Walter Becker on 10-05-2024 LDL Cholesterol, Calculated 31 mg/dL [facility] Comment on above: Rhtuzurfhj=565-756 m g/dL & Higher Pxxw=715 mg/dL or greater Lipid Profileon 10-05-2024 CHOL:HDL 3.37 Normal [facility] Comment on above: Order Comment: 215.2 Performed By: #### L 672.7849 ####[facility] [address] [place], [place], [address] Cholesterol [Mass/Vol] 103 mg/dL Normal <=200 [facility] Comment on above: Order Comment: 215.2 Result Comment: Chol esterol level, Desirable <200 mg/dLBorderline high cholesterol 200-239 mg/dLHigh cholesterol >=240 mg/dLRecommendations of the NCEP Adult Treatment Panel for thefollowing risk-cutoff thresholds for the [place] Americanpopulation. Performed By: #### L 500.4100 ####[facility] [address] [place], [address] Cholesterol in HDL [Mass/Vol] 31 mg/dL Low [facility] Comment on above: Order Comment: 215.2 Result Comment: Stephanie onal Cholesterol Education Program (NCEP) guidelines:<40 mg/dL: Low HDL-cholesterol (major risk factor for CHD)>= 60 mg/dL: High HDL-cholesterol (negative risk factor forCHD)HDL-cholesterol is affected by a number of factors, e.g.smoking, exercise, hormones, sex and age. Performed By: #### L 500.4100 ####[facility] [address] [place], [address] Cholesterol in LDL [Mass/Vol] 31 mg/dL Normal [facility] Comment on above: Order Comment: 215.2 Result Comment: Bord vekbeg=381-840 mg/dL Higher Htio=450 mg/dL or greater Performed By: #### L 500.4100 ####[facility] [address] [place], [address] Cholesterol in VLDL [Mass/Vol] 41 mg/dL High 5-40 [facility] Comment on above: Order Comment: 215.2 Performed By: #### L 500.4100 ####[facility] [address] [place], [address] Triglyceride [Mass/Vol] 207 mg/dL High [facility] Comment on above: Order Comment: 215.2 Result Comment: The drugs N-Acetylcysteine and Metamizole may falselydepress this assay.Normal range: <150 mg/dLBorderline High: 150-199 mg/dLHigh: 200-499 mg/dLVery High: >500 mg/dL Performed By: #### L 500.4100 ####[facility] [address] [place], [address] Screening total cholesterol/ high density lipoprotein (HDL) cholesterol ratioOrdered By: Walter Becker on 10-05-2024 Cholesterol.total/Cholester ol in HDL [Mass ratio] 3.37 {ratio} [facility] Serum or plasma cholesterol in HDL measurement (mass/volume)Ordered By: Walter Becker on 10-05-2024 Cholesterol in HDL [Mass/Vol] 31 mg/dL Low >40 [facility] Comment on above: National Cholesterol Education Program (NCEP) guidelines:<40 mg/dL: Low HDL-cholesterol (major risk factor for CHD)>= 60 mg/dL: High HDL-cholesterol (negative risk factor for CHD)HDL-cholesterol is affected by a number of factors, e.g. smoking, exercise, hormones, sex and age. Serum or plasma cholesterol measurement (mass/volume)Ordered By: Walter Becker on 10-05-2024 Cholesterol [Mass/Vol] 103 mg/dL <201 [facility] Comment on above: Cholesterol level, D esirable <200 mg/dLBorderline high cholesterol 200-239 mg/dLHigh cholesterol >=240 mg/dLRecommendations of the NCEP Adult Treatment Panel for the following risk-cutoff thresholds for the [place] population. Triglycerides measurementOrd ered By: Walter Becker on 10-05-2024 Triglyceride [Mass/Vol] 207 mg/dL High <199 [facility] Comment on above: The drugs N-Acetylcy steine and Metamizole may falsely depress this assay. Normal range: <150 mg/dLBorderline High: 150-199 mg/dLHigh: 200-499 mg/dLVery High: >500 mg/dL Anion gap in Serum or Plasma Ordered By: Walter Becker on 09-29-2024 Anion gap [Moles/Vol] 11 mmol/L 5-15 [facility] BUN/creatinine ratioOrdered By: Walter Becker on 09-29-2024 Urea nitrogen/Creatinine [Mass ratio] 20.5 mg/mg High 10-20 [facility] Bilirubin, totalOrdered By: Walter Becker on 09-29-2024 Bilirubin [Mass/Vol] 0.31 mg/dL 0.00-1.30 [facility] CBC-Complete Blood Cnt No Di ffon 09-29-2024 Erythrocyte distribution width (RBC) [Ratio] 13.7 % Normal 11.6-14.6 [facility] Comment on above: Order Comment: 215.2 Performed By: #### L 500.4050, L501.9985, L100.0500 ####[facility] [address] [place], [address] Hematocrit (Bld) [Volume fraction] 37.0 % Low 40-54 [facility] Comment on above: Order Comment: 215.2 Performed By: #### L 500.4050, L501.9985, L100.0500 ####[facility] [address] [place], [address] Hemoglobin (Bld) [Mass/Vol] 11.8 g/dL Low 13.0-16. 5 [facility] Comment on above: Order Comment: 215.2 Performed By: #### L 500.4050, L501.9985, L100.0500 ####[facility] [address] [place], [address] MCH (RBC) [Entitic mass] 27.9 pg Normal 27.0-32.0 [facility] Comment on above: Order Comment: 215.2 Performed By: #### L 500.4050, L501.9985, L100.0500 ####[facility] [address] [place], [address] MCHC (RBC) [Mass/Vol] 31.9 g/dL Low 32-36 [facility] Comment on above: Order Comment: 215.2 Performed By: #### L 500.4050, L501.9985, L100.0500 ####[facility] [address] [place], [address] MCV (RBC) [Entitic vol] 87.5 fL Normal 80-94 [facility] Comment on above: Order Comment: 215.2 Performed By: #### L 500.4050, L501.9985, L100.0500 ####[facility] [address] [place], [address] Platelet mean volume (Bld) [Entitic vol] 9.6 fL Normal 6.2-12.0 [facility] Comment on above: Order Comment: 215.2 Performed By: #### L 500.4050, L501.9985, L100.0500 ####[facility] [address] [place], [address] Platelets (Bld) [#/Vol] 226 10*3/uL Normal 150-450 [facility] Comment on above: Order Comment: 215.2 Performed By: #### L 500.4050, L501.9985, L100.0500 ####[facility] [address] [place], [address] RBC (Bld) [#/Vol] 4.23 10*6/uL Low 4.6-6.2 [facility] Comment on above: Order Comment: 215.2 Performed By: #### L 500.4050, L501.9985, L100.0500 ####[facility] [address] [place], [address] RDW SD 43.7 fl Normal 35.1-43.9 [facility] Comment on above: Order Comment: 215.2 Performed By: #### L 500.4050, L501.9985, L100.0500 ####[facility] [address] [place], [address] WBC (Bld) [#/Vol] 8.9 10*3/uL Normal 4.4-11.0 [facility] Comment on above: Order Comment: 215.2 Performed By: #### L 500.4050, L501.9985, L100.0500 ####[facility] [address] [place], [address] Carbon dioxide, total [Moles /volume] in Central venous bloodOrdered By: Walter Becker on 09-29-2024 CO2 [Moles/Vol] 25.6 mmol/L 21.0-32.0 [facility] Chloride assayOrdered By: Horner on 09-29-2024 Chloride [Moles/Vol] 104 mmol/L 98-108 [facility] Comprehensive Metabolic Prof ilon 09-29-2024 Albumin [Mass/Vol] 3.6 g/dL Normal 3.4-4.8 [facility] Comment on above: Order Comment: 215.2 Performed By: #### L 500.4050, L501.9985, L100.0500 ####[facility] [address] [place], [address] Albumin/Globulin [Mass ratio] 1.8 {ratio} Normal 0.9-2.4 [facility] Comment on above: Order Comment: 215.2 Performed By: #### L 500.4050, L501.9985, L100.0500 ####[facility] [address] [place], [address] ALK PHOS 101 U/L Normal 40-129 [facility] Comment on above: Order Comment: 215.2 Performed By: #### L 500.4050, L501.9985, L100.0500 ####[facility] [address] [place], [address] ALT [Catalytic activity/Vol] 19 U/L Normal <=46 [facility] Comment on above: Order Comment: 215.2 Performed By: #### L 500.4050, L501.9985, L100.0500 ####[facility] [address] [place], [address] AST [Catalytic activity/Vol] 15 U/L Normal <=37 [facility] Comment on above: Order Comment: 215.2 Performed By: #### L 500.4050, L501.9985, L100.0500 ####[facility] [address] [place], [address] Bilirubin [Mass/Vol] 0.31 mg/dL Normal 0.00-1.30 [facility] Comment on above: Order Comment: 215.2 Performed By: #### L 500.4050, L501.9985, L100.0500 ####[facility] [address] [place], [address] BUN/CRE 20.5 RATIO High 10-20 [facility] Comment on above: Order Comment: 215.2 Performed By: #### L 500.4050, L501.9985, L100.0500 ####[facility] [address] [place], [address] Calcium [Mass/Vol] 9.2 mg/dL Normal 7.6-11.0 [facility] Comment on above: Order Comment: 215.2 Performed By: #### L 500.4050, L501.9985, L100.0500 ####[facility] [address] [place], [address] Chloride [Moles/Vol] 104 mmol/L Normal 98-108 [facility] Comment on above: Order Comment: 215.2 Performed By: #### L 500.4050, L501.9985, L100.0500 ####[facility] [address] [place], [address] CO2 [Moles/Vol] 25.6 mmol/L Normal 21.0-32.0 [facility] Comment on above: Order Comment: 215.2 Performed By: #### L 500.4050, L501.9985, L100.0500 ####[facility] [address] [place], [address] Creatinine [Mass/Vol] 1.10 mg/dL Normal 0.70-1.20 [facility] Comment on above: Order Comment: 215.2 Performed By: #### L 500.4050, L501.9985, L100.0500 ####[facility] [address] [place], [address] GAP 11 Normal 5-15 [facility] Comment on above: Order Comment: 215.2 Performed By: #### L 500.4050, L501.9985, L100.0500 ####[facility] [address] [place], [address] GFR/1.73 sq M.predicted among non-blacks MDRD (S/P/Bld) [Vol rate/Area] 70 mL/min/{1.73_m2} Normal >60 [facility] Comment on above: Order Comment: 215.2 Result Comment: mL/m in/1.73m2 CKD-EPI Creatinine Equation (2020) Performed By: #### L 500.4050, L501.9985, L100.0500 ####[facility] [address] [place], [address] Globulin (S) [Mass/Vol] 2.0 g/dL Low 2.2-4.2 [facility] Comment on above: Order Comment: 215.2 Performed By: #### L 500.4050, L501.9985, L100.0500 ####[facility] [address] [place], [address] Glucose [Mass/Vol] 155 mg/dL High 70-99 [facility] Comment on above: Order Comment: 215.2 Performed By: #### L 500.4050, L501.9985, L100.0500 ####[facility] [address] [place], [address] Potassium [Moles/Vol] 4.2 mmol/L Normal 3.3-5.1 [facility] Comment on above: Order Comment: 215.2 Performed By: #### L 500.4050, L501.9985, L100.0500 ####[facility] [address] [place], [address] Sodium [Moles/Vol] 141 mmol/L Normal 133-145 [facility] Comment on above: Order Comment: 215.2 Performed By: #### L 500.4050, L501.9985, L100.0500 ####[facility] [address] [place], [address] T PROT 5.6 g/dL Low 5.9-8.4 [facility] Comment on above: Order Comment: 215.2 Performed By: #### L 500.4050, L501.9985, L100.0500 ####[facility] [address] [place], [address] Urea nitrogen [Mass/Vol] 23 mg/dL High 4-19 [facility] Comment on above: Order Comment: 215.2 Performed By: #### L 500.4050, L501.9985, L100.0500 ####[facility] [address] [place], [address] Erythrocyte distribution wid th (RBC) [Ratio]Ordered By: Walter Becker on 09-29-2024 Erythrocyte distribution width (RBC) [Entitic vol] 43.7 fL 35.1-43.9 [facility] Erythrocyte distribution wid th ratioOrdered By: Walter Becker on 09-29-2024 Erythrocyte distribution width (RBC) [Ratio] 13.7 % 11.6-14.6 [facility] GFR/1.73 sq M.predicted kimberly g non-blacks MDRD (S/P/Bld) [Vol rate/Area]Ordered By: Walter Becker on 09-29-2024 Estimated GFR (MDRD) Non-Af Amer 70 >60 [facility] Comment on above: mL/min/1.73m2 CKD-EP I Creatinine Equation (2020) Hematocrit Auto (Bld) [Volum e fraction]Ordered By: Walter Becker on 09-29-2024 Hematocrit (Bld) [Volume fraction] 37.0 % Low 40-54 [facility] Hemoglobin A1con 09-29-2024 HbA1c (Bld) [Mass fraction] 6.6 % Normal <=5.6 [facility] Comment on above: Order Comment: 215.2 Performed By: #### L 500.4050, L501.9985, L100.0500 ####[facility] [address] [place], [place], [address] Hemoglobin A1c percentageOrd ered By: Walter Becker on 09-29-2024 HbA1c (Bld) [Mass fraction] 6.6 % >5.7 [facility] Hemoglobin measurementOrdere d By: Walter Becker on 09-29-2024 Hemoglobin (Bld) [Mass/Vol] 11.8 g/dL Low 13.0-16. 5 [facility] Laboratory - Chemistry and C hemistry - challengeOrdered By: Walter Becker on 09-29-2024 AST [Catalytic activity/Vol] 15 U/L <38 [facility] MCV (mean corpuscular volume ) determinationOrdered By: Walter Becker on 09-29-2024 MCV (RBC) [Entitic vol] 87.5 fL 80-94 [facility] Mean corpuscular hemoglobin (MCH) determinationOrdered By: Walter Becker on 09-29-2024 MCH (RBC) [Entitic mass] 27.9 pg 27.0-32.0 [facility] Mean corpuscular hemoglobin concentration (MCHC) determinationOrdered By: Walter Becker on 09-29-2024 MCHC (RBC) [Mass/Vol] 31.9 g/dL Low 32-36 [facility] Mean platelet volume determi nationOrdered By: Walter Becker on 09-29-2024 Platelet mean volume (Bld) [Entitic vol] 9.6 fL 6.2-12.0 [facility] Platelet countOrdered By: Horner on 09-29-2024 Platelets (Bld) [#/Vol] 226 10*3/uL 150-450 [facility] Potassium (Unsp spec) [Mass/ Vol]Ordered By: Walter Becker on 09-29-2024 Potassium [Moles/Vol] 4.2 mmol/L 3.3-5.1 [facility] RBC Auto (Bld) [#/Vol]Ordere d By: Walter Becker on 09-29-2024 RBC (Bld) [#/Vol] 4.23 10*6/uL Low 4.6-6.2 [facility] Serum creatinine measurement (mass/volume)Ordered By: Walter Becker on 09-29-2024 Creatinine [Mass/Vol] 1.10 mg/dL 0.70-1.20 [facility] Serum globulin measurementOr dered By: Walter Becker on 09-29-2024 Globulin (S) [Mass/Vol] 2.0 g/dL Low 2.2-4.2 [facility] Serum glucose measurement (m ass/volume)Ordered By: Walter Becker on 09-29-2024 Glucose [Mass/Vol] 155 mg/dL High 70-99 [facility] Serum or plasma alanine davis otransferase (ALT) measurementOrdered By: Walter Becker on 09-29-2024 ALT [Catalytic activity/Vol] 19 U/L <47 [facility] Serum or plasma albumin antoine urement (mass/volume)Ordered By: Walter Becker on 09-29-2024 Albumin [Mass/Vol] 3.6 g/dL 3.4-4.8 [facility] Serum or plasma albumin/glob ulin mass ratioOrdered By: Walter Becker on 09-29-2024 Albumin/Globulin [Mass ratio] 1.8 {ratio} 0.9-2.4 [facility] Serum or plasma alkaline marilin sphatase measurementOrdered By: Walter Becker on 09-29-2024 ALP [Catalytic activity/Vol] 101 U/L 40-129 [facility] Serum or plasma calcium antoine urement (mass/volume)Ordered By: Walter Becker on 09-29-2024 Calcium [Mass/Vol] 9.2 mg/dL 7.6-11.0 [facility] Serum or plasma urea nitroge n measurement (mass/volume)Ordered By: Walter Becker on 09-29-2024 Urea nitrogen [Mass/Vol] 23 mg/dL High 4-19 [facility] Sodium levelOrdered By: Walter Becker on 09-29-2024 Sodium [Moles/Vol] 141 mmol/L 133-145 [facility] Total proteinOrdered By: Crystal Becker on 09-29-2024 Protein [Mass/Vol] 5.6 g/dL Low 5.9-8.4 [facility] White blood cell (WBC) count Ordered By: Walter Becker on 09-29-2024 WBC (Bld) [#/Vol] 8.9 10*3/uL 4.4-11.0 [facility] Urine Cultureon 08-05-2024 URC Culture exhibits no growth. Normal [facility] Comment on above: Performed By: #### L 400.0001, M100.2200 ####[facility] [address] [place], [place], [address] Albumin to globulin ratioOrd ered By: Walter Becker on 08-04-2024 Albumin/Globulin [Mass ratio] 1.0 {ratio} 0.9-2.4 [facility] Bilirubin Test strip Ql (U)O rdered By: Walter Becker on 08-04-2024 Bilirubin Ql (U) Negative Negative [facility] Bilirubin, totalOrdered By: Walter Becker on 08-04-2024 Bilirubin [Mass/Vol] 0.50 mg/dL 0.20-1.00 [facility] Comment on above: For patients on eltr ombopag therapy, use of Dimension [place] TBIL is not recommended. Blood urea nitrogen (BUN)/cr eatinine ratioOrdered By: Walter Becker on 08-04-2024 Urea nitrogen/Creatinine [Mass ratio] 21.1 mg/mg High 10-20 [facility] CBC-Complete Blood Cnt No Di ffon 08-04-2024 Erythrocyte distribution width (RBC) [Ratio] 13.0 % Normal 11.6-14.6 [facility] Comment on above: Order Comment: 215.2 Performed By: #### L 500.4050, L100.0500 ####[facility] [address] [place], [address] Hematocrit (Bld) [Volume fraction] 41.3 % Normal 40-54 [facility] Comment on above: Order Comment: 215.2 Performed By: #### L 500.4050, L100.0500 ####[facility] [address] [place], [address] Hemoglobin (Bld) [Mass/Vol] 12.9 g/dL Low 13.0-16. 5 [facility] Comment on above: Order Comment: 215.2 Performed By: #### L 500.4050, L100.0500 ####[facility] [address] [place], [address] MCH (RBC) [Entitic mass] 27.3 pg Normal 27.0-32.0 [facility] Comment on above: Order Comment: 215.2 Performed By: #### L 500.4050, L100.0500 ####[facility] [address] [place], [address] MCHC (RBC) [Mass/Vol] 31.2 g/dL Low 32-36 [facility] Comment on above: Order Comment: 215.2 Performed By: #### L 500.4050, L100.0500 ####[facility] [address] [place], [address] MCV (RBC) [Entitic vol] 87.3 fL Normal 80-94 [facility] Comment on above: Order Comment: 215.2 Performed By: #### L 500.4050, L100.0500 ####[facility] [address] [place], [address] Platelet mean volume (Bld) [Entitic vol] 9.3 fL Normal 6.2-12.0 [facility] Comment on above: Order Comment: 215.2 Performed By: #### L 500.4050, L100.0500 ####[facility] [address] [place], [address] Platelets (Bld) [#/Vol] 295 10*3/uL Normal 150-450 [facility] Comment on above: Order Comment: 215.2 Performed By: #### L 500.4050, L100.0500 ####[facility] [address] [place], [address] RBC (Bld) [#/Vol] 4.73 10*6/uL Normal 4.6-6.2 [facility] Comment on above: Order Comment: 215.2 Performed By: #### L 500.4050, L100.0500 ####[facility] [address] [place], [address] RDW SD 41.8 fl Normal 35.1-43.9 [facility] Comment on above: Order Comment: 215.2 Performed By: #### L 500.4050, L100.0500 ####[facility] [address] [place], [address] WBC (Bld) [#/Vol] 9.3 10*3/uL Normal 4.4-11.0 [facility] Comment on above: Order Comment: 215.2 Performed By: #### L 500.4050, L100.0500 ####[facility] [address] [place], [address] Carbon dioxide measurementOr dered By: Walter Becker on 08-04-2024 CO2 [Moles/Vol] 29.0 mmol/L 21.0-32.0 [facility] Chloride measurementOrdered By: Walter Becker on 01-21-2025 Chloride [Moles/Vol] 104 mmol/L 98-107 [facility] Comprehensive Metabolic Prof ilon 08-04-2024 Albumin [Mass/Vol] 3.5 g/dL Normal 3.2-5.0 [facility] Comment on above: Order Comment: 215.2 Performed By: #### L 500.4050, L100.0500 ####[facility] [address] [place], [address] Albumin/Globulin [Mass ratio] 1.0 {ratio} Normal 0.9-2.4 [facility] Comment on above: Order Comment: 215.2 Performed By: #### L 500.4050, L100.0500 ####[facility] [address] [place], [address] ALK P 125 U/L High 45-117 [facility] Comment on above: Order Comment: 215.2 Performed By: #### L 500.4050, L100.0500 ####[facility] [address] [place], [address] ALT [Catalytic activity/Vol] 19 U/L Normal 16-61 [facility] Comment on above: Order Comment: 215.2 Performed By: #### L 500.4050, L100.0500 ####[facility] [address] [place], [address] AST [Catalytic activity/Vol] 12 U/L Low 15-37 [facility] Comment on above: Order Comment: 215.2 Performed By: #### L 500.4050, L100.0500 ####[facility] [address] [place], [address] Bilirubin [Mass/Vol] 0.50 mg/dL Normal 0.20-1.00 [facility] Comment on above: Order Comment: 215.2 Result Comment: For patients on eltrombopag therapy, use of Dimension [place] TBIL is not recommended. Performed By: #### L 500.4050, L100.0500 ####[facility] [address] [place], [address] BUN/CRE 21.1 RATIO High 10-20 [facility] Comment on above: Order Comment: 215.2 Performed By: #### L 500.4050, L100.0500 ####[facility] [address] [place], [address] CA,Total 9.7 mg/dL Normal 8.5-10.1 [facility] Comment on above: Order Comment: 215.2 Performed By: #### L 500.4050, L100.0500 ####[facility] [address] [place], [address] Chloride [Moles/Vol] 104 mmol/L Normal 98-107 [facility] Comment on above: Order Comment: 215.2 Performed By: #### L 500.4050, L100.0500 ####[facility] [address] [place], [address] CO2 [Moles/Vol] 29.0 mmol/L Normal 21.0-32.0 [facility] Comment on above: Order Comment: 215.2 Performed By: #### L 500.4050, L100.0500 ####[facility] [address] [place], [address] Creatinine [Mass/Vol] 1.28 mg/dL Normal 0.70-1.30 [facility] Comment on above: Order Comment: 215.2 Result Comment: The validity of the calculated GFR GFRAA in patients over70 years has not been determined. Clinical correlation isessential. Performed By: #### L 500.4050, L100.0500 ####[facility] [address] [place], [address] EST GFR - AA 70 mL/min Normal >60 [facility] Comment on above: Order Comment: 215.2 Result Comment: Afri can [place] GFR Calc Performed By: #### L 500.4050, L100.0500 ####[facility] [address] [place], [address] GAP 7 Normal 5-15 [facility] Comment on above: Order Comment: 215.2 Performed By: #### L 500.4050, L100.0500 ####[facility] [address] [place], [address] GFR/1.73 sq M.predicted among non-blacks MDRD (S/P/Bld) [Vol rate/Area] 58 mL/min/{1.73_m2} Low >60 [facility] Comment on above: Order Comment: 215.2 Result Comment: Non- GFR Calc Performed By: #### L 500.4050, L100.0500 ####[facility] [address] [place], [address] Globulin (S) [Mass/Vol] 3.5 g/dL Normal 2.2-4.2 [facility] Comment on above: Order Comment: 215.2 Performed By: #### L 500.4050, L100.0500 ####[facility] [address] [place], [address] Glucose [Mass/Vol] 128 mg/dL High 74-106 [facility] Comment on above: Order Comment: 215.2 Result Comment: Fast ing Glucose result greater than or equal to 126 mg/dLsuggests DIABETES MELLITUS per A.D.A. criteria. Performed By: #### L 500.4050, L100.0500 ####[facility] [address] [place], [address] Potassium [Moles/Vol] 3.9 mmol/L Normal 3.5-5.1 [facility] Comment on above: Order Comment: 215.2 Performed By: #### L 500.4050, L100.0500 ####[facility] [address] [place], [address] Sodium [Moles/Vol] 140 mmol/L Normal 136-145 [facility] Comment on above: Order Comment: 215.2 Performed By: #### L 500.4050, L100.0500 ####[facility] [address] [place], [address] T PROT 7.0 g/dL Normal 6.4-8.2 [facility] Comment on above: Order Comment: 215.2 Performed By: #### L 500.4050, L100.0500 ####[facility] [address] [place], [address] Urea nitrogen [Mass/Vol] 27 mg/dL High 7-18 [facility] Comment on above: Order Comment: 215.2 Performed By: #### L 500.4050, L100.0500 ####[facility] [address] [place], [address] Epithelial cells.squamous LM Ql (Urine sed)Ordered By: Walter Becker on 08-04-2024 Epithelial cells.squamous LM.HPF (Urine sed) [#/Area] 0 /[HPF] 0-5 [facility] Erythrocyte distribution wid th (RBC) [Ratio]Ordered By: Walter Becker on 08-04-2024 Erythrocyte distribution width (RBC) [Entitic vol] 41.8 fL 35.1-43.9 [facility] Erythrocyte distribution wid th ratioOrdered By: Walter Becker on 08-04-2024 Erythrocyte distribution width (RBC) [Ratio] 13.0 % 11.6-14.6 [facility] Estimated glomerular filtrat ion rate (GFR) AmericanOrdered By: Walter Becker on 08-04-2024 Estimated GFR (MDRD) Amer 70 mL/min >60 [facility] Comment on above: GFR Calc Glomerular filtration rate ( GFR) estimationOrdered By: Walter Becker on 08-04-2024 Estimated GFR (MDRD) Non-Af Amer 58 mL/min Low >60 [facility] Comment on above: Non- GFR Calc Glucose Ql (U)Ordered By: Horner on 08-04-2024 Urine Glucose (UA) Normal mg/dl Normal [facility] Glucose measurementOrdered B y: Walter Becker on 08-04-2024 Glucose [Mass/Vol] 128 mg/dL High 74-106 [facility] Comment on above: Fasting Glucose resu lt greater than or equal to 126 mg/dL suggests DIABETES MELLITUS per A.D.A. criteria. Hematocrit Auto (Bld) [Volum e fraction]Ordered By: Walter Becker on 08-04-2024 Hematocrit (Bld) [Volume fraction] 41.3 % 40-54 [facility] Hemoglobin measurementOrdere d By: Walter Becker on 08-04-2024 Hemoglobin (Bld) [Mass/Vol] 12.9 g/dL Low 13.0-16. 5 [facility] Ketones Test strip Ql (U)Ord ered By: Walter Becker on 08-04-2024 Ketones Ql (U) Negative Negative [facility] - Chemistry and C hemistry - challengeOrdered By: Walter Becker on 08-04-2024 AST [Catalytic activity/Vol] 12 U/L Low 15-37 [facility] MCV (mean corpuscular volume ) determinationOrdered By: Walter Becker on 08-04-2024 MCV (RBC) [Entitic vol] 87.3 fL 80-94 [facility] Mean corpuscular hemoglobin (MCH) determinationOrdered By: Walter Becker on 08-04-2024 MCH (RBC) [Entitic mass] 27.3 pg 27.0-32.0 [facility] Mean corpuscular hemoglobin concentration (MCHC) determinationOrdered By: Walter Becker on 08-04-2024 MCHC (RBC) [Mass/Vol] 31.2 g/dL Low 32-36 [facility] Mean platelet volume determi nationOrdered By: Walter Becker on 08-04-2024 Platelet mean volume (Bld) [Entitic vol] 9.3 fL 6.2-12.0 [facility] Microscopic analysis of urin e for red blood cells (RBC)Ordered By: Walter Becker on 08-04-2024 Urine RBC 0 SEEN /hpf 0-5 [facility] Mucus LM Ql (Urine sed)Order ed By: Walter Becker on 08-04-2024 Mucus Ql (Urine sed) 0 SEEN /hpf [facility] Nitrite Test strip Ql (U)Ord ered By: Walter Becker on 08-04-2024 Nitrite Ql (U) Negative Negative [facility] Platelet countOrdered By: Horner on 08-04-2024 Platelets (Bld) [#/Vol] 295 10*3/uL 150-450 [facility] Potassium measurementOrdered By: Walter Becker on 08-04-2024 Potassium [Moles/Vol] 3.9 mmol/L 3.5-5.1 [facility] Protein Test strip Ql (U)Ord ered By: Walter Becker on 08-04-2024 Protein Ql (U) Negative Negative [facility] RBC Auto (Bld) [#/Vol]Ordere d By: Walter Becker on 08-04-2024 RBC (Bld) [#/Vol] 4.73 10*6/uL 4.6-6.2 [facility] Serum anion gap measurementO rdered By: Walter Becker on 08-04-2024 Anion gap [Moles/Vol] 7 mmol/L 5-15 [facility] Serum globulin measurementOr dered By: Walter Becker on 08-04-2024 Globulin (S) [Mass/Vol] 3.5 g/dL 2.2-4.2 [facility] Serum or plasma alanine davis otransferase (ALT) measurementOrdered By: Walter Becker on 08-04-2024 ALT [Catalytic activity/Vol] 19 U/L 16-61 [facility] Serum or plasma albumin antoine urement (mass/volume)Ordered By: Walter Becker on 08-04-2024 Albumin [Mass/Vol] 3.5 g/dL 3.2-5.0 [facility] Serum or plasma alkaline marilin sphatase measurementOrdered By: Walter Becker on 08-04-2024 ALP [Catalytic activity/Vol] 125 U/L High 45-117 [facility] Serum or plasma calcium antoine urement (mass/volume)Ordered By: Walter Becker on 08-04-2024 Calcium [Mass/Vol] 9.7 mg/dL 8.5-10.1 [facility] Serum or plasma creatinine m easurement (mass/volume)Ordered By: Walter Becker on 08-04-2024 Creatinine [Mass/Vol] 1.28 mg/dL 0.70-1.30 [facility] Comment on above: The validity of the calculated GFR & GFRAA in patients over 70 years has not been determined. Clinical correlation is essential. Serum or plasma urea nitroge n measurement (mass/volume)Ordered By: Walter Becker on 08-04-2024 Urea nitrogen [Mass/Vol] 27 mg/dL High 7-18 [facility] Sodium levelOrdered By: Walter Becker on 08-04-2024 Sodium [Moles/Vol] 140 mmol/L 136-145 [facility] Total proteinOrdered By: Crystal Becker on 08-04-2024 Protein [Mass/Vol] 7.0 g/dL 6.4-8.2 [facility] Urinalysis, Completeon 08-04 WBC 0-5 SEEN Normal 0-5 [facility] Comment on above: Order Comment: SCCAT HETER SPECIMEN Performed By: #### L 400.0001, ####[facility] [address] [place], [address] BACTERIA 0 SEEN Normal None Seen [facility] Comment on above: Order Comment: SCCAT HETER SPECIMEN Performed By: #### L 400.0001, ####[facility] [address] [place], [address] EPI,SQUAMOUS 0 SEEN Normal 0-5 [facility] Comment on above: Order Comment: SCCAT HETER SPECIMEN Performed By: #### L 400.0001, ####[facility] [address] [place], [address] Mucus Ql (Urine sed) 0 SEEN Normal [facility] Comment on above: Order Comment: SCCAT HETER SPECIMEN Performed By: #### L 400.0001, M100.2200 ####[facility] [address] [place], [address] RBC 0 SEEN Normal 0-5 [facility] Comment on above: Order Comment: SCCAT HETER SPECIMEN Performed By: #### L 400.0001, M100.2200 ####[facility] [address] [place], [address] Urine blood detectionOrdered By: Walter Becker on 08-04-2024 Urine Occult Blood Negative Negative [facility] Urine clarityOrdered By: Crystal Becker on 08-04-2024 Clarity (U) Clear Clear [facility] Urine color determinationOrd ered By: Walter Becker on 08-04-2024 Color (U) Yellow Yellow [facility] Urine cultureOrdered By: Crystal Becker on 08-04-2024 Bacteria identified Cx Nom (U) Culture exhibits no growth. [facility] Urine leukocyte esterase det ection by dipstickOrdered By: Walter Becker on 08-04-2024 Leukocyte esterase Test strip Ql (U) Negative Negative [facility] Urine pHOrdered By: Walter floyd on 08-04-2024 pH (U) 6.0 [pH] 5.0 - 8.0 [facility] Urine sediment bacteria coun t by microscopy (number/high power field)Ordered By: Walter Becker on 08-04-2024 Bacteria LM.HPF (Urine sed) [#/Area] 0 /[HPF] None Seen [facility] Urine specific gravity measu rementOrdered By: Walter Becker on 08-04-2024 Specific gravity (U) [Rel density] 1.010 1.002-1.03 0 [facility] Urobilinogen Ql (U)Ordered B y: Walter Becker on 08-04-2024 Urine Urobilinogen Normal mg/dl Normal [facility] White blood cell (WBC) count Ordered By: Walter Becker on 08-04-2024 WBC (Bld) [#/Vol] 9.3 10*3/uL 4.4-11.0 [facility] White blood cell countOrdere d By: Walter Becker on 08-04-2024 Urine WBC 0-5 SEEN /hpf 0-5 [facility] Albumin to globulin ratioOrd ered By: Walter Becker on 07-27-2024 Albumin/Globulin [Mass ratio] 1.1 {ratio} 0.9-2.4 [facility] Bilirubin, totalOrdered By: aWlter Becker on 07-27-2024 Bilirubin [Mass/Vol] 0.60 mg/dL 0.20-1.00 [facility] Comment on above: For patients on eltr ombopag therapy, use of Dimension [place] TBIL is not recommended. Blood urea nitrogen (BUN)/cr eatinine ratioOrdered By: Walter Becker on 07-27-2024 Urea nitrogen/Creatinine [Mass ratio] 20.0 mg/mg 10-20 [facility] CBC-Complete Blood Cnt No Di ffon 07-27-2024 Erythrocyte distribution width (RBC) [Ratio] 13.5 % Normal 11.6-14.6 [facility] Comment on above: Order Comment: 215-2 Performed By: #### L 500.4050, L100.0500 ####[facility] [address] [place], [address] Hematocrit (Bld) [Volume fraction] 35.7 % Low 40-54 [facility] Comment on above: Order Comment: 215-2 Performed By: #### L 500.4050, L100.0500 ####[facility] [address] [place], [address] Hemoglobin (Bld) [Mass/Vol] 11.5 g/dL Low 13.0-16. 5 [facility] Comment on above: Order Comment: 215-2 Performed By: #### L 500.4050, L100.0500 ####[facility] [address] [place], [address] MCH (RBC) [Entitic mass] 28.2 pg Normal 27.0-32.0 [facility] Comment on above: Order Comment: 215-2 Performed By: #### L 500.4050, L100.0500 ####[facility] [address] [place], [address] MCHC (RBC) [Mass/Vol] 32.2 g/dL Normal 32-36 [facility] Comment on above: Order Comment: 215-2 Performed By: #### L 500.4050, L100.0500 ####[facility] [address] [place], [address] MCV (RBC) [Entitic vol] 87.5 fL Normal 80-94 [facility] Comment on above: Order Comment: 215-2 Performed By: #### L 500.4050, L100.0500 ####[facility] [address] [place], [address] Platelet mean volume (Bld) [Entitic vol] 9.6 fL Normal 6.2-12.0 [facility] Comment on above: Order Comment: 215-2 Performed By: #### L 500.4050, L100.0500 ####[facility] [address] [place], [address] Platelets (Bld) [#/Vol] 192 10*3/uL Normal 150-450 [facility] Comment on above: Order Comment: 215-2 Performed By: #### L 500.4050, L100.0500 ####[facility] [address] [place], [address] RBC (Bld) [#/Vol] 4.08 10*6/uL Low 4.6-6.2 [facility] Comment on above: Order Comment: 215-2 Performed By: #### L 500.4050, L100.0500 ####[facility] [address] [place], [address] RDW SD 43.1 fl Normal 35.1-43.9 [facility] Comment on above: Order Comment: 215-2 Performed By: #### L 500.4050, L100.0500 ####[facility] [address] [place], [address] WBC (Bld) [#/Vol] 7.2 10*3/uL Normal 4.4-11.0 [facility] Comment on above: Order Comment: 215-2 Performed By: #### L 500.4050, L100.0500 ####[facility] [address] [place], [address] Carbon dioxide measurementOr dered By: Walter Becker on 07-27-2024 CO2 [Moles/Vol] 29.0 mmol/L 21.0-32.0 [facility] Chloride measurementOrdered By: Walter Becker on 07-27-2024 Chloride [Moles/Vol] 105 mmol/L 98-107 [facility] Comprehensive Metabolic Prof ilon 07-27-2024 Albumin [Mass/Vol] 3.1 g/dL Low 3.2-5.0 [facility] Comment on above: Order Comment: 215-2 Performed By: #### L 500.4050, L100.0500 ####[facility] [address] [place], [address] Albumin/Globulin [Mass ratio] 1.1 {ratio} Normal 0.9-2.4 [facility] Comment on above: Order Comment: 215-2 Performed By: #### L 500.4050, L100.0500 ####[facility] [address] [place], [address] ALK P 124 U/L High 45-117 [facility] Comment on above: Order Comment: 215-2 Performed By: #### L 500.4050, L100.0500 ####[facility] [address] [place], [address] ALT [Catalytic activity/Vol] 20 U/L Normal 16-61 [facility] Comment on above: Order Comment: 215-2 Performed By: #### L 500.4050, L100.0500 ####[facility] [address] [place], [address] AST [Catalytic activity/Vol] 10 U/L Low 15-37 [facility] Comment on above: Order Comment: 215-2 Performed By: #### L 500.4050, L100.0500 ####[facility] [address] [place], [address] Bilirubin [Mass/Vol] 0.60 mg/dL Normal 0.20-1.00 [facility] Comment on above: Order Comment: 215-2 Result Comment: For patients on eltrombopag therapy, use of Dimension [place] TBIL is not recommended. Performed By: #### L 500.4050, L100.0500 ####[facility] [address] [place], [address] BUN/CRE 20.0 RATIO Normal 10-20 [facility] Comment on above: Order Comment: 215-2 Performed By: #### L 500.4050, L100.0500 ####[facility] [address] [place], [address] CA,Total 8.9 mg/dL Normal 8.5-10.1 [facility] Comment on above: Order Comment: 215-2 Performed By: #### L 500.4050, L100.0500 ####[facility] [address] [place], [address] Chloride [Moles/Vol] 105 mmol/L Normal 98-107 [facility] Comment on above: Order Comment: 215-2 Performed By: #### L 500.4050, L100.0500 ####[facility] [address] [place], [address] CO2 [Moles/Vol] 29.0 mmol/L Normal 21.0-32.0 [facility] Comment on above: Order Comment: 215-2 Performed By: #### L 500.4050, L100.0500 ####[facility] [address] [place], [address] Creatinine [Mass/Vol] 1.10 mg/dL Normal 0.70-1.30 [facility] Comment on above: Order Comment: 215-2 Result Comment: The validity of the calculated GFR GFRAA in patients over70 years has not been determined. Clinical correlation isessential. Performed By: #### L 500.4050, L100.0500 ####[facility] [address] [place], [address] EST GFR - AA 84 mL/min Normal >60 [facility] Comment on above: Order Comment: -2 Result Comment: Afri can [place] GFR Calc Performed By: #### L 500.4050, L100.0500 ####[facility] [address] [place], [address] GAP 4 Low 5-15 [facility] Comment on above: Order Comment: -2 Performed By: #### L 500.4050, L100.0500 ####[facility] [address] [place], [address] GFR/1.73 sq M.predicted among non-blacks MDRD (S/P/Bld) [Vol rate/Area] 69 mL/min/{1.73_m2} Normal >60 [facility] Comment on above: Order Comment: 215-2 Result Comment: Non- GFR Calc Performed By: #### L 500.4050, L100.0500 ####[facility] [address] [place], [address] Globulin (S) [Mass/Vol] 2.9 g/dL Normal 2.2-4.2 [facility] Comment on above: Order Comment: 215-2 Performed By: #### L 500.4050, L100.0500 ####[facility] [address] [place], [address] Glucose [Mass/Vol] 127 mg/dL High 74-106 [facility] Comment on above: Order Comment: 215-2 Result Comment: Fast ing Glucose result greater than or equal to 126 mg/dLsuggests DIABETES MELLITUS per A.D.A. criteria. Performed By: #### L 500.4050, L100.0500 ####[facility] [address] [place], [address] Potassium [Moles/Vol] 4.1 mmol/L Normal 3.5-5.1 [facility] Comment on above: Order Comment: 215-2 Performed By: #### L 500.4050, L100.0500 ####[facility] [address] [place], [address] Sodium [Moles/Vol] 137 mmol/L Normal 136-145 [facility] Comment on above: Order Comment: 215-2 Performed By: #### L 500.4050, L100.0500 ####[facility] [address] [place], [address] T PROT 6.0 g/dL Low 6.4-8.2 [facility] Comment on above: Order Comment: 215-2 Performed By: #### L 500.4050, L100.0500 ####[facility] [address] [place], [address] Urea nitrogen [Mass/Vol] 22 mg/dL High 7-18 [facility] Comment on above: Order Comment: 215-2 Performed By: #### L 500.4050, L100.0500 ####[facility] [address] [place], [address] Erythrocyte distribution wid th (RBC) [Ratio]Ordered By: Walter Becker on 07-27-2024 Erythrocyte distribution width (RBC) [Entitic vol] 43.1 fL 35.1-43.9 [facility] Erythrocyte distribution wid th ratioOrdered By: Walter Becker on 07-27-2024 Erythrocyte distribution width (RBC) [Ratio] 13.5 % 11.6-14.6 [facility] Estimated glomerular filtrat ion rate (GFR) AmericanOrdered By: Walter Becker on 07-27-2024 Estimated GFR (MDRD) Amer 84 mL/min >60 [facility] Comment on above: GFR Calc Glomerular filtration rate ( GFR) estimationOrdered By: Walter Becker on 07-27-2024 Estimated GFR (MDRD) Non-Af Amer 69 mL/min >60 [facility] Comment on above: Non- GFR Calc Glucose measurementOrdered B y: Walter Becker on 07-27-2024 Glucose [Mass/Vol] 127 mg/dL High 74-106 [facility] Comment on above: Fasting Glucose resu lt greater than or equal to 126 mg/dL suggests DIABETES MELLITUS per A.D.A. criteria. Hematocrit Auto (Bld) [Volum e fraction]Ordered By: Walter Becker on 07-27-2024 Hematocrit (Bld) [Volume fraction] 35.7 % Low 40-54 [facility] Hemoglobin measurementOrdere d By: Walter Becker on 07-27-2024 Hemoglobin (Bld) [Mass/Vol] 11.5 g/dL Low 13.0-16. 5 [facility] - Chemistry and C hemistry - challengeOrdered By: Walter Becker on 07-27-2024 AST [Catalytic activity/Vol] 10 U/L Low 15-37 [facility] MCV (mean corpuscular volume ) determinationOrdered By: Walter Becker on 07-27-2024 MCV (RBC) [Entitic vol] 87.5 fL 80-94 [facility] Mean corpuscular hemoglobin (MCH) determinationOrdered By: Walter Becker on 07-27-2024 MCH (RBC) [Entitic mass] 28.2 pg 27.0-32.0 [facility] Mean corpuscular hemoglobin concentration (MCHC) determinationOrdered By: Walter Becker on 07-27-2024 MCHC (RBC) [Mass/Vol] 32.2 g/dL 32-36 [facility] Mean platelet volume determi nationOrdered By: Walter Becker on 07-27-2024 Platelet mean volume (Bld) [Entitic vol] 9.6 fL 6.2-12.0 [facility] Platelet countOrdered By: Horner on 07-27-2024 Platelets (Bld) [#/Vol] 192 10*3/uL 150-450 [facility] Potassium measurementOrdered By: Walter Becker on 07-27-2024 Potassium [Moles/Vol] 4.1 mmol/L 3.5-5.1 [facility] RBC Auto (Bld) [#/Vol]Ordere d By: Walter Becker on 07-27-2024 RBC (Bld) [#/Vol] 4.08 10*6/uL Low 4.6-6.2 [facility] Serum anion gap measurementO rdered By: Walter Becker on 07-27-2024 Anion gap [Moles/Vol] 4 mmol/L Low 5-15 [facility] Serum globulin measurementOr dered By: Walter Becekr on 07-27-2024 Globulin (S) [Mass/Vol] 2.9 g/dL 2.2-4.2 [facility] Serum or plasma alanine davis otransferase (ALT) measurementOrdered By: Walter Becker on 07-27-2024 ALT [Catalytic activity/Vol] 20 U/L 16-61 [facility] Serum or plasma albumin antoine urement (mass/volume)Ordered By: Walter Becker on 07-27-2024 Albumin [Mass/Vol] 3.1 g/dL Low 3.2-5.0 [facility] Serum or plasma alkaline marilin sphatase measurementOrdered By: Walter Becker on 07-27-2024 ALP [Catalytic activity/Vol] 124 U/L High 45-117 [facility] Serum or plasma calcium antoine urement (mass/volume)Ordered By: Walter Becker on 07-27-2024 Calcium [Mass/Vol] 8.9 mg/dL 8.5-10.1 [facility] Serum or plasma creatinine m easurement (mass/volume)Ordered By: Walter Becker on 07-27-2024 Creatinine [Mass/Vol] 1.10 mg/dL 0.70-1.30 [facility] Comment on above: The validity of the calculated GFR & GFRAA in patients over 70 years has not been determined. Clinical correlation is essential. Serum or plasma urea nitroge n measurement (mass/volume)Ordered By: Walter Becker on 07-27-2024 Urea nitrogen [Mass/Vol] 22 mg/dL High 01-29 [facility] Sodium levelOrdered By: Walter Becker on 07-27-2024 Sodium [Moles/Vol] 137 mmol/L 136-145 [facility] Total proteinOrdered By: Crystal Becker on 07-27-2024 Protein [Mass/Vol] 6.0 g/dL Low 6.4-8.2 [facility] White blood cell (WBC) count Ordered By: Walter Becker on 07-27-2024 WBC (Bld) [#/Vol] 7.2 10*3/uL 4.4-11.0 [facility] Albumin to globulin ratioOrd ered By: Walter Becker on 07-07-2024 Albumin/Globulin [Mass ratio] 1.0 {ratio} 0.9-2.4 [facility] Bilirubin, totalOrdered By: Walter Becker on 07-07-2024 Bilirubin [Mass/Vol] 0.40 mg/dL 0.20-1.00 [facility] Comment on above: For patients on eltr ombopag therapy, use of [employer]ension [place] TBIL is not recommended. Blood urea nitrogen (BUN)/cr eatinine ratioOrdered By: Walter Becker on 07-07-2024 Urea nitrogen/Creatinine [Mass ratio] 23.6 mg/mg High 05-03 [facility] CBC-Complete Blood Cnt No Di ffon 07-07-2024 Erythrocyte distribution width (RBC) [Ratio] 13.3 % Normal 11.6-14.6 [facility] Comment on above: Order Comment: 215.2 Performed By: #### L 100.0500, L500.4050, L501.9923 ####[facility] [address] [place], [address] Hematocrit (Bld) [Volume fraction] 38.1 % Low 40-54 [facility] Comment on above: Order Comment: 215.2 Performed By: #### L 100.0500, L500.4050, L501.9985 ####[facility] [address] [place], [address] Hemoglobin (Bld) [Mass/Vol] 12.3 g/dL Low 13.0-16. 5 [facility] Comment on above: Order Comment: 215.2 Performed By: #### L 100.0500, L500.4050, L501.9985 ####[facility] [address] [place], [address] MCH (RBC) [Entitic mass] 28.3 pg Normal 27.0-32.0 [facility] Comment on above: Order Comment: 215.2 Performed By: #### L 100.0500, L500.4050, L501.9985 ####[facility] [address] [place], [address] MCHC (RBC) [Mass/Vol] 32.3 g/dL Normal 32-36 [facility] Comment on above: Order Comment: 215.2 Performed By: #### L 100.0500, L500.4050, [id number] ####[facility] [address] [place], [address] MCV (RBC) [Entitic vol] 87.6 fL Normal 80-94 [facility] Comment on above: Order Comment: 215.2 Performed By: #### L 100.0500, L500.4050, [id number] ####[facility] [address] [place], [address] Platelet mean volume (Bld) [Entitic vol] 9.1 fL Normal 6.2-12.0 [facility] Comment on above: Order Comment: 215.2 Performed By: #### L 100.0500, L500.4050, [id number] ####[facility] [address] [place], [address] Platelets (Bld) [#/Vol] 211 10*3/uL Normal 150-450 [facility] Comment on above: Order Comment: 215.2 Performed By: #### L 100.0500, L500.4050, [id number] ####[facility] [address] [place], [address] RBC (Bld) [#/Vol] 4.35 10*6/uL Low 4.6-6.2 [facility] Comment on above: Order Comment: 215.2 Performed By: #### L 100.0500, L500.4050, [id number] ####[facility] [address] [place], [address] RDW SD 42.5 fl Normal 35.1-43.9 [facility] Comment on above: Order Comment: 215.2 Performed By: #### L 100.0500, L500.4050, [id number] ####[facility] [address] [place], [address] WBC (Bld) [#/Vol] 7.6 10*3/uL Normal 4.4-11.0 [facility] Comment on above: Order Comment: 215.2 Performed By: #### L 100.0500, L500.4050, [id number] ####[facility] [address] [place], [address] Carbon dioxide measurementOr dered By: Walter Becker on 07-07-2024 CO2 [Moles/Vol] 32.0 mmol/L 21.0-32.0 [facility] Chloride measurementOrdered By: Walter Becker on 12-24-2024 Chloride [Moles/Vol] 107 mmol/L 98-107 [facility] Comprehensive Metabolic Prof ilon 07-07-2024 Albumin [Mass/Vol] 2.9 g/dL Low 3.2-5.0 [facility] Comment on above: Order Comment: 215.2 Performed By: #### L 100.0500, L500.4050, [id number] ####[facility] [address] [place], [address] Albumin/Globulin [Mass ratio] 1.0 {ratio} Normal 0.9-2.4 [facility] Comment on above: Order Comment: 215.2 Performed By: #### L 100.0500, L500.4050, [id number] ####[facility] [address] [place], [address] ALK P 121 U/L High 45-117 [facility] Comment on above: Order Comment: 215.2 Performed By: #### L 100.0500, L500.4050, [id number] ####[facility] [address] [place], [address] ALT [Catalytic activity/Vol] 20 U/L Normal 16-61 [facility] Comment on above: Order Comment: 215.2 Performed By: #### L 100.0500, L500.4050, [id number] ####[facility] [address] [place], [address] AST [Catalytic activity/Vol] 10 U/L Low 15-37 [facility] Comment on above: Order Comment: 215.2 Performed By: #### L 100.0500, L500.4050, [id number] ####[facility] [address] [place], [address] Bilirubin [Mass/Vol] 0.40 mg/dL Normal 0.20-1.00 [facility] Comment on above: Order Comment: 215.2 Result Comment: For patients on eltrombopag therapy, use of Dimension [place] TBIL is not recommended. Performed By: #### L 100.0500, L500.4050, [id number] ####[facility] [address] [place], [address] BUN/CRE 23.6 RATIO High 10-20 [facility] Comment on above: Order Comment: 215.2 Performed By: #### L 100.0500, L500.4050, [id number] ####[facility] [address] [place], [address] CA,Total 9.1 mg/dL Normal 8.5-10.1 [facility] Comment on above: Order Comment: 215.2 Performed By: #### L 100.0500, L500.4050, [id number] ####[facility] [id number] [place], [address] Chloride [Moles/Vol] 107 mmol/L Normal 98-107 [facility] Comment on above: Order Comment: 215.2 Performed By: #### L 100.0500, L500.4050, [id number] ####[facility] [address] [place], [address] CO2 [Moles/Vol] 32.0 mmol/L Normal 21.0-32.0 [facility] Comment on above: Order Comment: 215.2 Performed By: #### L 100.0500, [id number], [id number] ####[facility] [address] [place], [address] Creatinine [Mass/Vol] 1.06 mg/dL Normal 0.70-1.30 [facility] Comment on above: Order Comment: 215.2 Result Comment: The validity of the calculated GFR GFRAA in patients over70 years has not been determined. Clinical correlation isessential. Performed By: #### L 100.0500, L500.4050, [id number] ####[facility] [address] [place], [address] EST GFR - AA 87 mL/min Normal >60 [facility] Comment on above: Order Comment: 215.2 Result Comment: Afri can [place] GFR Calc Performed By: #### L 100.0500, [id number], [id number] ####[facility] [address] [place], [address] GAP 3 Low 5-15 [facility] Comment on above: Order Comment: 215.2 Performed By: #### L 100.0500, [id number], [id number] ####[facility] [address] [place], [address] GFR/1.73 sq M.predicted among non-blacks MDRD (S/P/Bld) [Vol rate/Area] 72 mL/min/{1.73_m2} Normal >60 [facility] Comment on above: Order Comment: 215.2 Result Comment: Non- GFR Calc Performed By: #### L 100.0500, [id number], [id number] ####[facility] [address] [place], [address] Globulin (S) [Mass/Vol] 3.0 g/dL Normal 2.2-4.2 [facility] Comment on above: Order Comment: 215.2 Performed By: #### L 100.0500, [id number], [id number] ####[facility] [address] [place], [address] Glucose [Mass/Vol] 130 mg/dL High 74-106 [facility] Comment on above: Order Comment: 215.2 Result Comment: Fast ing Glucose result greater than or equal to 126 mg/dLsuggests DIABETES MELLITUS per A.D.A. criteria. Performed By: #### L 100.0500, [id number], [id number] ####[facility] [address] [place], [address] Potassium [Moles/Vol] 3.9 mmol/L Normal 3.5-5.1 [facility] Comment on above: Order Comment: 215.2 Performed By: #### L 100.0500, [id number], [id number] ####[facility] [address] [place], [address] Sodium [Moles/Vol] 141 mmol/L Normal 136-145 [facility] Comment on above: Order Comment: 215.2 Performed By: #### L 100.0500, [id number], [id number] ####[facility] [address] [place], [address] T PROT 5.9 g/dL Low 6.4-8.2 [facility] Comment on above: Order Comment: 215.2 Performed By: #### L 100.0500, [id number], [id number] ####[facility] [address] [place], [address] Urea nitrogen [Mass/Vol] 25 mg/dL High 7-18 [facility] Comment on above: Order Comment: 215.2 Performed By: #### L 100.0500, [id number], [id number] ####[facility] [address] [place], [address] Erythrocyte distribution wid th (RBC) [Ratio]Ordered By: Walter Becker on 07-07-2024 Erythrocyte distribution width (RBC) [Entitic vol] 42.5 fL 35.1-43.9 [facility] Erythrocyte distribution wid th ratioOrdered By: Walter Becker on 07-07-2024 Erythrocyte distribution width (RBC) [Ratio] 13.3 % 11.6-14.6 [facility] Estimated glomerular filtrat ion rate (GFR) AmericanOrdered By: Walter Becker on 07-07-2024 Estimated GFR (MDRD) Amer 87 mL/min >60 [facility] Comment on above: GFR Calc Glomerular filtration rate ( GFR) estimationOrdered By: Walter Becker on 07-07-2024 Estimated GFR (MDRD) Non-Af Amer 72 mL/min >60 [facility] Comment on above: Non- GFR Calc Glucose measurementOrdered B y: Walter Becker on 07-07-2024 Glucose [Mass/Vol] 130 mg/dL High 74-106 [facility] Comment on above: Fasting Glucose resu lt greater than or equal to 126 mg/dL suggests DIABETES MELLITUS per A.D.A. criteria. Hematocrit Auto (Bld) [Volum e fraction]Ordered By: Walter Becker on 07-07-2024 Hematocrit (Bld) [Volume fraction] 38.1 % Low 40-54 [facility] Hemoglobin A1con 07-07-2024 HbA1c (Bld) [Mass fraction] 6.4 % High 3.8-5.6 [facility] Comment on above: Order Comment: 215.2 Result Comment: Norm al < 5.7 % Prediabetic 5.7 - 6.4 % Diabetic >or= 6.5 % Please note range changes. Performed By: #### L 100.0500, L500.4050, [id number] ####[facility] [address] [place], [address] Hemoglobin A1c percentageOrd ered By: Walter Becker on 07-07-2024 HbA1c (Bld) [Mass fraction] 6.4 % High 3.8-5.6 [facility] Comment on above: Normal < 5.7 % Predi abetic 5.7 - 6.4 % Diabetic >or= 6.5 % Please note range changes. Hemoglobin measurementOrdere d By: Walter Becker on 07-07-2024 Hemoglobin (Bld) [Mass/Vol] 12.3 g/dL Low 13.0-16. 5 [facility] Laboratory - Chemistry and C hemistry - challengeOrdered By: Walter Becker on 07-07-2024 AST [Catalytic activity/Vol] 10 U/L Low 15-37 [facility] MCV (mean corpuscular volume ) determinationOrdered By: Walter Becker on 07-07-2024 MCV (RBC) [Entitic vol] 87.6 fL 80-94 [facility] Mean corpuscular hemoglobin (MCH) determinationOrdered By: Walter Becker on 07-07-2024 MCH (RBC) [Entitic mass] 28.3 pg 27.0-32.0 [facility] Mean corpuscular hemoglobin concentration (MCHC) determinationOrdered By: Walter Becker on 07-07-2024 MCHC (RBC) [Mass/Vol] 32.3 g/dL 32-36 [facility] Mean platelet volume determi nationOrdered By: Walter Becker on 07-07-2024 Platelet mean volume (Bld) [Entitic vol] 9.1 fL 6.2-12.0 [facility] Platelet countOrdered By: Horner on 07-07-2024 Platelets (Bld) [#/Vol] 211 10*3/uL 150-450 [facility] Potassium measurementOrdered By: Walter Becker on 07-07-2024 Potassium [Moles/Vol] 3.9 mmol/L 3.5-5.1 [facility] RBC Auto (Bld) [#/Vol]Ordere d By: Walter Becker on 07-07-2024 RBC (Bld) [#/Vol] 4.35 10*6/uL Low 4.6-6.2 [facility] Serum anion gap measurementO rdered By: Walter Becker on 07-07-2024 Anion gap [Moles/Vol] 3 mmol/L Low 5-15 [facility] Serum globulin measurementOr dered By: Walter Becker on 07-07-2024 Globulin (S) [Mass/Vol] 3.0 g/dL 2.2-4.2 [facility] Serum or plasma alanine davis otransferase (ALT) measurementOrdered By: Walter Becker on 07-07-2024 ALT [Catalytic activity/Vol] 20 U/L 16-61 [facility] Serum or plasma albumin antoine urement (mass/volume)Ordered By: Walter Becker on 07-07-2024 Albumin [Mass/Vol] 2.9 g/dL Low 3.2-5.0 [facility] Serum or plasma alkaline marilin sphatase measurementOrdered By: Walter Becker on 07-07-2024 ALP [Catalytic activity/Vol] 121 U/L High 45-117 [facility] Serum or plasma calcium antoine urement (mass/volume)Ordered By: Walter Becker on 07-07-2024 Calcium [Mass/Vol] 9.1 mg/dL 8.5-10.1 [facility] Serum or plasma creatinine m easurement (mass/volume)Ordered By: Walter Becker on 07-07-2024 Creatinine [Mass/Vol] 1.06 mg/dL 0.70-1.30 [facility] Comment on above: The validity of the calculated GFR & GFRAA in patients over 70 years has not been determined. Clinical correlation is essential. Serum or plasma urea nitroge n measurement (mass/volume)Ordered By: Walter Becker on 07-07-2024 Urea nitrogen [Mass/Vol] 25 mg/dL High 7-18 [facility] Sodium levelOrdered By: Walter Becker on 07-07-2024 Sodium [Moles/Vol] 141 mmol/L 136-145 [facility] Total proteinOrdered By: Crystal Becker on 07-07-2024 Protein [Mass/Vol] 5.9 g/dL Low 6.4-8.2 [facility] White blood cell (WBC) count Ordered By: Walter Becker on 07-07-2024 WBC (Bld) [#/Vol] 7.6 10*3/uL 4.4-11.0 [facility] Vitamin D,25 Hydroxyon 07-02 Vitamin D 25-OH 58.5 ng/mL Normal [facility] Comment on above: Order Comment: 215.2 Result Comment: Laure min D 25(OH) Status Range Deficiency <20 ng/mL (50nmol/L) Insufficiency 20 - 30 ng/mL (50 - 75 nmol/L) Sufficiency 30 - 100 ng/mL (75 - 250 nmol/L) Toxicity >100 ng/mL (>250 nmol/L) Performed By: #### L 506.1000 ####[facility] [address] [place], [address] 21-GQ-Dhqpipe DOrdered By: Twin Becker on 07-01-2024 Vitamin D 25-Hydroxy 58.5 ng/mL [facility] Comment on above: Vitamin D 25(OH) Sta tus Range Deficiency <20 ng/mL (50nmol/L) Insufficiency 20 - 30 ng/mL (50 - 75 nmol/L) Sufficiency 30 - 100 ng/mL (75 - 250 nmol/L) Toxicity >100 ng/mL (>250 nmol/L) Bedside Glucoseon 06-01-2024 FINGERSTICK GLU 183 mg/dL High 74-106 [facility] Comment on above: Result Comment: JAZ BRANDON OF PATIENT CARE PER NURSING PROTOCOL Performed By: #### L 501.080 ####[facility] [address] [place], [address] Fluor Guidance for Spine Inj on 06-01-2024 Fluor Guidance for Spine Inj Normal [facility] Operative Reporton Operative Report Normal [facility] Laboratory - CoagulationOrde red By: Walter Becker on 10-25-2023 INR Coag (Bld) [Relative time] 3.2 {INR} [facility] PT Coag (PPP) [Time] 32.9 s 11.7-14.9 [facility] Laboratory - CoagulationOrde red By: Walter Becker on 10-16-2023 INR Coag (Bld) [Relative time] 1.9 {INR} [facility] PT Coag (PPP) [Time] 21.6 s 11.7-14.9 [facility] Basophil percentageOrdered B y: Walter Becker on 10-08-2023 Cholesterol [Mass/Vol] 107 mg/dL <200 [facility] Comment on above: <200 mg/dL Desirable 200-240 mg/dL Borderline >240 mg/dL High Risk Triglyceride [Mass/Vol] 133 mg/dL <199 [facility] Comment on above: The drugs N-Acetylcy steine and Metamizole may falsely depress this assay.Serum Triglycerides Reference Interval Normal <150 mg/dL Borderline high 150 - 199 mg/dL High 200 - 499 mg/dL Very High > or = 500 mg/dL Laboratory - Chemistry and C hemistry - challengeOrdered By: Walter Becker on 10-08-2023 ALT [Catalytic activity/Vol] 18 U/L 16-61 [facility] Cholesterol in HDL [Mass/Vol] 35 mg/dL >40 [facility] Comment on above: The drugs N-Acetylcy steine and Metamizole may falsely depress this assay. Reference Range HDL <40 mg/dL Low HDL Cholesterol HDL >or= 60 mg/dL High HDL Cholesterol Cholesterol in LDL [Mass/Vol] 45 mg/dL 0-130 [facility] CK [Catalytic activity/Vol] 59 U/L 39-308 [facility] No Panel InformationOrdered By: Walter Becker on 10-08-2023 VLDL Cholesterol 27 mg/dL 5-40 [facility] Thin prep Papanicolaou smear with manual screeningOrdered By: Walter Becker on 10-08-2023 Thin prep Papanicolaou smear with manual screening 10 U/L 15-37 [facility] Capillary blood internationa l normalized ratio (INR)Ordered By: Walter Becker on 10-04-2023 INR Coag (BldC) [Relative time] 2.2 [facility] Comment on above: Critical Value > 4.0 Whole blood prothrombin time Ordered By: Walter Becker on 10-04-2023 PT Coag (Bld) [Time] 22.6 s 11.7-14.9 [facility] Capillary blood internationa l normalized ratio (INR)Ordered By: Walter Becker on 10-01-2023 INR Coag (BldC) [Relative time] 1.9 [facility] Comment on above: Critical Value > 4.0 Whole blood prothrombin time Ordered By: Walter Becker on 10-01-2023 PT Coag (Bld) [Time] 19.9 s 11.7-14.9 [facility] Basophil percentageOrdered B y: Walter Becker on 09-25-2023 Bilirubin [Mass/Vol] 0.30 mg/dL 0.20-1.00 [facility] Comment on above: For patients on eltr ombopag therapy, use of Dimension [place] TBIL is not recommended. Chloride [Moles/Vol] 105 mmol/L 98-107 [facility] Glucose [Mass/Vol] 125 mg/dL 74-106 [facility] Comment on above: Fasting Glucose resu lt from 100 to 125 mg/dL suggests IMPAIRED HOMEOSTASIS per A.D.A. criteria. Hemoglobin (Bld) [Mass/Vol] 12.6 g/dL 13.0-16. 5 [facility] Potassium [Moles/Vol] 4.2 mmol/L 3.5-5.1 [facility] Protein [Mass/Vol] 6.2 g/dL 6.4-8.2 [facility] Sodium [Moles/Vol] 140 mmol/L 136-145 [facility] WBC (Bld) [#/Vol] 10.6 10*3/uL 4.4-11.0 [facility] Determination of erythrocyte mean corpuscular volume (MCV)Ordered By: Walter Becker on 09-25-2023 MCV (RBC) [Entitic vol] 85.8 fL 80-94 [facility] Erythrocyte distribution wid th ratioOrdered By: [place] Rosita on 09-25-2023 Erythrocyte distribution width (RBC) [Ratio] 13.7 % 11.6-14.6 [facility] Erythrocyte distribution wid th standard deviationOrdered By: Walter Becker on 09-25-2023 Erythrocyte distribution width (RBC) [Entitic vol] 42.4 fL 35.1-43.9 [facility] Hematocrit Auto (Bld) [Volum e fraction]Ordered By: Walter Becker on 09-25-2023 Hematocrit (Bld) [Volume fraction] 39.4 % 40-54 [facility] Laboratory - Chemistry and C hemistry - challengeOrdered By: Walter Becker on 09-25-2023 Albumin/Globulin [Mass ratio] 1.1 {ratio} 0.9-2.4 [facility] ALP [Catalytic activity/Vol] 107 U/L 45-117 [facility] ALT [Catalytic activity/Vol] 19 U/L 16-61 [facility] CO2 [Moles/Vol] 29.0 mmol/L 21.0-32.0 [facility] Globulin (S) [Mass/Vol] 3.0 g/dL 2.2-4.2 [facility] Urea nitrogen/Creatinine [Mass ratio] 29.8 mg/mg 10-20 [facility] Laboratory - CoagulationOrde red By: Walter Becker on 09-25-2023 INR Coag (Bld) [Relative time] 2.8 {INR} [facility] PT Coag (PPP) [Time] 28.9 s 11.7-14.9 [facility] Laboratory - Hematology and Cell countsOrdered By: Walter Becker on 09-25-2023 MCH (RBC) [Entitic mass] 27.5 pg 27.0-32.0 [facility] MCHC (RBC) [Mass/Vol] 32.0 g/dL 32-36 [facility] Platelet mean volume (Bld) [Entitic vol] 9.9 fL 6.2-12.0 [facility] Platelets (Bld) [#/Vol] 235 10*3/uL 150-450 [facility] No Panel InformationOrdered By: Walter Becker on 09-25-2023 Estimated GFR (MDRD) Amer 75 mL/min >60 [facility] Comment on above: GFR Calc Estimated GFR (MDRD) Non-Af Amer 62 mL/min >60 [facility] Comment on above: Non- GFR Calc RBC Auto (Bld) [#/Vol]Ordere d By: Walter Becker on 09-25-2023 RBC (Bld) [#/Vol] 4.59 10*6/uL 4.6-6.2 [facility] Serum or plasma calcium antoine urement (mass/volume)Ordered By: Walter Becker on 09-25-2023 Calcium [Mass/Vol] 9.6 mg/dL 8.5-10.1 [facility] Serum or plasma creatinine m easurement (mass/volume)Ordered By: Walter Becker on 09-25-2023 Creatinine [Mass/Vol] 1.21 mg/dL 0.70-1.30 [facility] Comment on above: The validity of the calculated GFR & GFRAA in patients over 70 years has not been determined. Clinical correlation is essential. Serum or plasma urea nitroge n measurement (mass/volume)Ordered By: Walter Becker on 09-25-2023 Urea nitrogen [Mass/Vol] 36 mg/dL 7-18 [facility] Thin prep Papanicolaou smear with manual screeningOrdered By: Walter Becker on 09-25-2023 Thin prep Papanicolaou smear with manual screening 3.2 g/dL 3.2-5.0 [facility] Thin prep Papanicolaou smear with manual screening 11 U/L 15-37 [facility] Thin prep Papanicolaou smear with manual screening 6 5-15 [facility] Laboratory - CoagulationOrde red By: Walter Becker on 09-18-2023 INR Coag (Bld) [Relative time] 1.6 {INR} [facility] PT Coag (PPP) [Time] 18.7 s 11.7-14.9 [facility] Capillary blood internationa l normalized ratio (INR)Ordered By: Walter Becker on 09-13-2023 INR Coag (BldC) [Relative time] 3.1 [facility] Comment on above: Critical Value > 4.0 Whole blood prothrombin time Ordered By: Walter Becker on 09-13-2023 PT Coag (Bld) [Time] 33.3 s 11.7-14.9 [facility] Capillary blood internationa l normalized ratio (INR)Ordered By: Walter Becker on 09-12-2023 INR Coag (BldC) [Relative time] 1.7 [facility] Comment on above: Critical Value > 4.0 Whole blood prothrombin time Ordered By: Walter Becker on 09-12-2023 PT Coag (Bld) [Time] 19.2 s 11.7-14.9 [facility] Capillary blood internationa l normalized ratio (INR)Ordered By: Walter Becker on 09-09-2023 INR Coag (BldC) [Relative time] 2.9 [facility] Comment on above: Critical Value > 4.0 Whole blood prothrombin time Ordered By: Walter Becker on 09-09-2023 PT Coag (Bld) [Time] 31.5 s 11.7-14.9 [facility] Laboratory - CoagulationOrde red By: Walter Becker on 08-26-2023 INR Coag (Bld) [Relative time] 2.2 {INR} [facility] PT Coag (PPP) [Time] 24.7 s 11.7-14.9 [facility] Capillary blood internationa l normalized ratio (INR)Ordered By: Walter Becker on 08-19-2023 INR Coag (BldC) [Relative time] 2.7 [facility] Comment on above: Critical Value > 4.0 Whole blood prothrombin time Ordered By: Walter Becker on 08-19-2023 PT Coag (Bld) [Time] 29.2 s 11.7-14.9 [facility] Capillary blood internationa l normalized ratio (INR)Ordered By: Walter Becker on 08-12-2023 INR Coag (BldC) [Relative time] 2.5 [facility] Comment on above: Critical Value > 4.0 Whole blood prothrombin time Ordered By: Walter Becker on 08-12-2023 PT Coag (Bld) [Time] 26.7 s 11.7-14.9 [facility] Capillary blood internationa l normalized ratio (INR)Ordered By: Walter Becker on 08-05-2023 INR Coag (BldC) [Relative time] 1.9 [facility] Comment on above: Critical Value > 4.0 Whole blood prothrombin time Ordered By: Walter Becker on 08-05-2023 PT Coag (Bld) [Time] 20.7 s 11.7-14.9 [facility] Laboratory - CoagulationOrde red By: Walter Becker on 07-29-2023 INR Coag (Bld) [Relative time] 2.3 {INR} [facility] Comment on above: Critical Value > 4.0 Whole blood prothrombin time Ordered By: Walter Becker on 07-29-2023 PT Coag (Bld) [Time] 25.0 s 11.7-14.9 [facility] Laboratory - CoagulationOrde red By: Walter Becker on 07-22-2023 INR Coag (Bld) [Relative time] 2.0 {INR} [facility] Comment on above: Critical Value > 4.0 Whole blood prothrombin time Ordered By: Walter Becker on 07-22-2023 PT Coag (Bld) [Time] 22.4 s 11.7-14.9 [facility] Laboratory - CoagulationOrde red By: Walter Becker on 07-19-2023 INR Coag (Bld) [Relative time] 3.4 {INR} [facility] Comment on above: Critical Value > 4.0 Whole blood prothrombin time Ordered By: Walter Becker on 07-19-2023 PT Coag (Bld) [Time] 36.2 s 11.7-14.9 [facility] Laboratory - CoagulationOrde red By: Walter Becker on 07-17-2023 INR Coag (Bld) [Relative time] 3.0 {INR} [facility] Comment on above: Critical Value > 4.0 Whole blood prothrombin time Ordered By: Walter Becker on 07-17-2023 PT Coag (Bld) [Time] 32.2 s 11.7-14.9 [facility] Laboratory - CoagulationOrde red By: Walter Becker on 07-10-2023 INR Coag (Bld) [Relative time] 2.3 {INR} [facility] Comment on above: Critical Value > 4.0 Whole blood prothrombin time Ordered By: Walter Becker on 07-10-2023 PT Coag (Bld) [Time] 25.4 s 11.7-14.9 [facility] Laboratory - CoagulationOrde red By: Walter Becker on 07-03-2023 INR Coag (Bld) [Relative time] 1.5 {INR} [facility] Comment on above: Critical Value > 4.0 Whole blood prothrombin time Ordered By: Walter Becker on 07-03-2023 PT Coag (Bld) [Time] 16.5 s 11.7-14.9 [facility] Laboratory - CoagulationOrde red By: Walter Becker on 06-26-2023 INR Coag (Bld) [Relative time] 2.3 {INR} [facility] Comment on above: Critical Value > 4.0 Whole blood prothrombin time Ordered By: Watler Becker on 06-26-2023 PT Coag (Bld) [Time] 24.7 s 11.7-14.9 [facility] Laboratory - CoagulationOrde red By: Walter Becker on 06-25-2023 INR Coag (Bld) [Relative time] 3.2 {INR} [facility] Comment on above: Critical Value > 4.0 Whole blood prothrombin time Ordered By: Walter Becker on 06-25-2023 PT Coag (Bld) [Time] 34.3 s 11.7-14.9 [facility] Laboratory - CoagulationOrde red By: Walter Becker on 06-24-2023 INR Coag (Bld) [Relative time] 3.4 {INR} [facility] Comment on above: Critical Value > 4.0 Whole blood prothrombin time Ordered By: Walter Becker on 06-24-2023 PT Coag (Bld) [Time] 36.4 s 11.7-14.9 [facility] Laboratory - CoagulationOrde red By: Walter Becker on 06-17-2023 INR Coag (Bld) [Relative time] 2.4 {INR} [facility] Comment on above: Critical Value > 4.0 Whole blood prothrombin time Ordered By: Walter Becker on 06-17-2023 PT Coag (Bld) [Time] 26.1 s 11.7-14.9 [facility] Laboratory - CoagulationOrde red By: Walter Becker on 06-10-2023 INR Coag (Bld) [Relative time] 1.4 {INR} [facility] Comment on above: Critical Value > 4.0 Whole blood prothrombin time Ordered By: Walter Becker on 06-10-2023 PT Coag (Bld) [Time] 15.9 s 11.7-14.9 [facility] Glucose Glucometer (dC) [M ass/Vol]Ordered By: Kee Merritt on 06-03-2023 Glucose [Mass/Vol] 130 mg/dL 74-106 [facility] Comment on above: MANAGEMENT OF PATIEN T CARE PER NURSING PROTOCOL Laboratory - CoagulationOrde red By: Walter Becker on 05-20-2023 INR Coag (Bld) [Relative time] 2.6 {INR} [facility] Comment on above: Critical Value > 4.0 No Panel InformationOrdered By: Walter Becker on 05-20-2023 2.6 [facility] Whole blood prothrombin time Ordered By: Walter Becker on 05-20-2023 PT Coag (Bld) [Time] 27.6 s 11.7-14.9 [facility] Basophil percentageOrdered B y: Walter Becker on 05-15-2023 Basophil percentage 0 SEEN /hpf 0-5 [facility] Basophil percentage 114 mg/dL 74-106 [facility] Basophil percentage 5.9 g/dL 6.4-8.2 [facility] Basophil percentage 0.40 mg/dL 0.20-1.00 [facility] Basophil percentage 140 mmol/L 136-145 [facility] Basophil percentage 4.1 mmol/L 3.5-5.1 [facility] Basophil percentage 105 mmol/L 98-107 [facility] Basophils (Bld) [#/Vol] 10.4 10*3/uL 4.4-11.0 [facility] Bilirubin [Mass/Vol] 0.40 mg/dL 0.20-1.00 [facility] Comment on above: For patients on eltr ombopag therapy, use of Dimension [place] TBIL is not recommended. Chloride [Moles/Vol] 105 mmol/L 98-107 [facility] Glucose [Mass/Vol] 114 mg/dL 74-106 [facility] Comment on above: Fasting Glucose resu lt from 100 to 125 mg/dL suggests IMPAIRED HOMEOSTASIS per A.D.A. criteria. Potassium [Moles/Vol] 4.1 mmol/L 3.5-5.1 [facility] Protein [Mass/Vol] 5.9 g/dL 6.4-8.2 [facility] Sodium [Moles/Vol] 140 mmol/L 136-145 [facility] WBC (Bld) [#/Vol] 10.4 10*3/uL 4.4-11.0 [facility] Bilirubin Test strip Ql (U)O rdered By: Walter Becker on 05-15-2023 Bilirubin Ql (U) Negative Negative [facility] Blood erythrocytes count (nu mber/volume)Ordered By: Walter Becker on 05-15-2023 RBC (Bld) [#/Vol] 4.37 10*6/uL 4.6-6.2 [facility] Blood hemoglobin measurement (mass/volume)Ordered By: Walter Becker on 05-15-2023 Hemoglobin (Bld) [Mass/Vol] 11.6 g/dL 13.0-16. 5 [facility] Blood platelet mean volumeOr dered By: Walter Becker on 05-15-2023 Platelet mean volume (Bld) [Entitic vol] 9.4 fL 6.2-12.0 [facility] Culture, urineOrdered By: Horner on 05-15-2023 Bacteria identified Cx Nom (U) Culture exhibits no growth. [facility] Determination of erythrocyte mean corpuscular volume (MCV)Ordered By: Walter Becker on 05-15-2023 MCV (RBC) [Entitic vol] 84.7 fL 80-94 [facility] Hematocrit Auto (Bld) [Volum e fraction]Ordered By: Walter Becker on 05-15-2023 Hematocrit (Bld) [Volume fraction] 37.0 % 40-54 [facility] Ketones Test strip Ql (U)Ord ered By: Walter Becker on 05-15-2023 Ketones Ql (U) Negative Negative [facility] Laboratory - Chemistry and C hemistry - challengeOrdered By: Walter Becker on 05-15-2023 ALP [Catalytic activity/Vol] 97 U/L 45-117 [facility] ALT [Catalytic activity/Vol] 21 U/L 16-61 [facility] CO2 [Moles/Vol] 28.0 mmol/L 21.0-32.0 [facility] Globulin (S) [Mass/Vol] 3.0 g/dL 2.2-4.2 [facility] Urea nitrogen/Creatinine [Mass ratio] 30.7 mg/mg 10-20 [facility] Laboratory - Hematology and Cell countsOrdered By: Walter Becker on 05-15-2023 Erythrocyte distribution width (RBC) [Entitic vol] 43.3 fL 35.1-43.9 [facility] Erythrocyte distribution width (RBC) [Ratio] 14.1 % 11.6-14.6 [facility] MCH (RBC) [Entitic mass] 26.5 pg 27.0-32.0 [facility] MCHC Auto (RBC) [Mass/Vol]Or dered By: Walter Becker on 05-15-2023 MCHC (RBC) [Mass/Vol] 31.4 g/dL 32-36 [facility] Mucus LM Ql (Urine sed)Order ed By: Walter Becker on 05-15-2023 Mucus Ql (Urine sed) 0 SEEN /hpf [facility] Nitrite Test strip Ql (U)Ord ered By: Walter Becker on 05-15-2023 Nitrite Ql (U) Negative Negative [facility] No Panel InformationOrdered By: Walter Becker on 05-15-2023 Estimated GFR (MDRD) Amer 96 mL/min >60 [facility] Comment on above: GFR Calc Estimated GFR (MDRD) Non-Af Amer 79 mL/min >60 [facility] Comment on above: Non- GFR Calc 26.5 pg 27.0-32.0 [facility] 14.1 % 11.6-14.6 [facility] 43.3 fl 35.1-43.9 [facility] 79 mL/min >60 [facility] 96 mL/min >60 [facility] 30.7 RATIO 10-20 [facility] 3.0 g/dL 2.2-4.2 [facility] 97 U/L 45-117 [facility] 21 U/L 16-61 [facility] 28.0 mmol/L 21.0-32.0 [facility] Platelets bldOrdered By: Crystal Becker on 05-15-2023 Platelets (Bld) [#/Vol] 256 10*3/uL 150-450 [facility] Protein Test strip Ql (U)Ord ered By: Walter Becker on 05-15-2023 Protein Ql (U) Negative Negative [facility] Serum or plasma albumin antoine urement (mass/volume)Ordered By: Walter Becker on 05-15-2023 Albumin [Mass/Vol] 2.9 g/dL 3.2-5.0 [facility] Serum or plasma albumin/glob ulin mass ratioOrdered By: Walter Becker on 05-15-2023 Albumin/Globulin [Mass ratio] 1.0 {ratio} 0.9-2.4 [facility] Serum or plasma calcium antoine urement (mass/volume)Ordered By: Walter Becker on 05-15-2023 Calcium [Mass/Vol] 8.8 mg/dL 8.5-10.1 [facility] Serum or plasma creatinine m easurement (mass/volume)Ordered By: Walter Becker on 05-15-2023 Creatinine [Mass/Vol] 0.98 mg/dL 0.70-1.30 [facility] Comment on above: The validity of the calculated GFR & GFRAA in patients over 70 years has not been determined. Clinical correlation is essential. Serum or plasma urea nitroge n measurement (mass/volume)Ordered By: Walter Becker on 05-15-2023 Urea nitrogen [Mass/Vol] 30 mg/dL 7-18 [facility] Squamous epithelial cells de tection in urine sediment by light microscopyOrdered By: Walter Becker on 05-15-2023 Epithelial cells.squamous LM Ql (Urine sed) 0 SEEN /hpf 0-5 [facility] Thin prep Papanicolaou smear with manual screeningOrdered By: Walter Becker on 05-15-2023 Thin prep Papanicolaou smear with manual screening 9 U/L 15-37 [facility] Thin prep Papanicolaou smear with manual screening 7 5-15 [facility] Urine blood detectionOrdered By: Walter Becker on 05-15-2023 RBC Ql (U) Negative Negative [facility] RBC Ql (U) 0 SEEN /hpf 0-5 [facility] Urine clarityOrdered By: Crystal Becker on 05-15-2023 Clarity (U) Clear Clear [facility] Urine color determinationOrd ered By: Walter Becker on 05-15-2023 Color (U) Yellow Yellow [facility] Urine glucose detectionOrder ed By: Walter Becker on 05-15-2023 Glucose Ql (U) Normal mg/dl Normal [facility] Urine leukocyte esterase det ection by dipstickOrdered By: Walter Becker on 05-15-2023 Leukocyte esterase Test strip Ql (U) Negative Negative [facility] Urine pHOrdered By: Walter floyd on 05-15-2023 pH (U) 5.0 [pH] 5.0 - 8.0 [facility] Urine sediment bacteria coun t by microscopy (number/high power field)Ordered By: Walter Becker on 05-15-2023 Bacteria LM.HPF (Urine sed) [#/Area] 0 /[HPF] None Seen [facility] Urine specific gravity measu rementOrdered By: Walter Becker on 05-15-2023 Specific gravity (U) [Rel density] 1.010 1.002-1.03 0 [facility] Urobilinogen Auto test strip Ql (U)Ordered By: Walter Becker on 05-15-2023 Urobilinogen Ql (U) Normal mg/dl Normal [facility] Basophil percentageOrdered B y: Walter Becker on 05-06-2023 Basophil percentage 135 mg/dL 74-106 [facility] Basophil percentage 5.9 g/dL 6.4-8.2 [facility] Basophil percentage 0.40 mg/dL 0.20-1.00 [facility] Basophil percentage 140 mmol/L 136-145 [facility] Basophil percentage 3.7 mmol/L 3.5-5.1 [facility] Basophil percentage 106 mmol/L 98-107 [facility] Basophils (Bld) [#/Vol] 9.4 10*3/uL 4.4-11.0 [facility] Bilirubin [Mass/Vol] 0.40 mg/dL 0.20-1.00 [facility] Comment on above: For patients on eltr ombopag therapy, use of Dimension [place] TBIL is not recommended. Chloride [Moles/Vol] 106 mmol/L 98-107 [facility] Glucose [Mass/Vol] 135 mg/dL 74-106 [facility] Comment on above: Fasting Glucose resu lt greater than or equal to 126 mg/dL suggests DIABETES MELLITUS per A.D.A. criteria. Potassium [Moles/Vol] 3.7 mmol/L 3.5-5.1 [facility] Protein [Mass/Vol] 5.9 g/dL 6.4-8.2 [facility] Sodium [Moles/Vol] 140 mmol/L 136-145 [facility] WBC (Bld) [#/Vol] 9.4 10*3/uL 4.4-11.0 [facility] Blood erythrocytes count (nu mber/volume)Ordered By: Walter Becker on 05-06-2023 RBC (Bld) [#/Vol] 4.49 10*6/uL 4.6-6.2 [facility] Blood hemoglobin measurement (mass/volume)Ordered By: Walter Becker on 05-06-2023 Hemoglobin (Bld) [Mass/Vol] 12.0 g/dL 13.0-16. 5 [facility] Blood platelet mean volumeOr dered By: Walter Becker on 05-06-2023 Platelet mean volume (Bld) [Entitic vol] 9.5 fL 6.2-12.0 [facility] Determination of erythrocyte mean corpuscular volume (MCV)Ordered By: Walter Becker on 05-06-2023 MCV (RBC) [Entitic vol] 85.7 fL 80-94 [facility] Hematocrit Auto (Bld) [Volum e fraction]Ordered By: Walter Becker on 05-06-2023 Hematocrit (Bld) [Volume fraction] 38.5 % 40-54 [facility] INR in Blood by Coagulation assayOrdered By: Walter Becker on 05-06-2023 INR Coag (Bld) [Relative time] 2.5 {INR} [facility] - Chemistry and C hemistry - challengeOrdered By: Walter Becker on 05-06-2023 ALP [Catalytic activity/Vol] 93 U/L 45-117 [facility] ALT [Catalytic activity/Vol] 23 U/L 16-61 [facility] CO2 [Moles/Vol] 29.0 mmol/L 21.0-32.0 [facility] Globulin (S) [Mass/Vol] 2.9 g/dL 2.2-4.2 [facility] Urea nitrogen/Creatinine [Mass ratio] 25.8 mg/mg 10-20 [facility] - CoagulationOrde red By: Walter Becker on 05-06-2023 PT Coag (PPP) [Time] 27.5 s 11.7-14.9 [facility] Laboratory - Hematology and Cell countsOrdered By: Walter Becker on 05-06-2023 Erythrocyte distribution width (RBC) [Entitic vol] 44.4 fL 35.1-43.9 [facility] Erythrocyte distribution width (RBC) [Ratio] 14.2 % 11.6-14.6 [facility] MCH (RBC) [Entitic mass] 26.7 pg 27.0-32.0 [facility] MCHC Auto (RBC) [Mass/Vol]Or dered By: Walter Becker on 05-06-2023 MCHC (RBC) [Mass/Vol] 31.2 g/dL 32-36 [facility] No Panel InformationOrdered By: Walter Becker on 05-06-2023 Estimated GFR (MDRD) Amer 102 mL/min >60 [facility] Comment on above: GFR Calc Estimated GFR (MDRD) Non-Af Amer 84 mL/min >60 [facility] Comment on above: Non- GFR Calc 26.7 pg 27.0-32.0 [facility] 14.2 % 11.6-14.6 [facility] 44.4 fl 35.1-43.9 [facility] 27.5 SECONDS 11.7-14.9 [facility] 84 mL/min >60 [facility] 102 mL/min >60 [facility] 25.8 RATIO 10-20 [facility] 2.9 g/dL 2.2-4.2 [facility] 93 U/L 45-117 [facility] 23 U/L 16-61 [facility] 29.0 mmol/L 21.0-32.0 [facility] Platelets bldOrdered By: Crystal Becker on 05-06-2023 Platelets (Bld) [#/Vol] 238 10*3/uL 150-450 [facility] Serum or plasma albumin antoine urement (mass/volume)Ordered By: Walter Becker on 05-06-2023 Albumin [Mass/Vol] 3.0 g/dL 3.2-5.0 [facility] Serum or plasma albumin/glob ulin mass ratioOrdered By: Walter Becker on 05-06-2023 Albumin/Globulin [Mass ratio] 1.0 {ratio} 0.9-2.4 [facility] Serum or plasma calcium antoine urement (mass/volume)Ordered By: Walter Becker on 05-06-2023 Calcium [Mass/Vol] 9.1 mg/dL 8.5-10.1 [facility] Serum or plasma creatinine m easurement (mass/volume)Ordered By: Walter Becker on 05-06-2023 Creatinine [Mass/Vol] 0.93 mg/dL 0.70-1.30 [facility] Comment on above: The validity of the calculated GFR & GFRAA in patients over 70 years has not been determined. Clinical correlation is essential. Serum or plasma urea nitroge n measurement (mass/volume)Ordered By: Walter Becker on 05-06-2023 Urea nitrogen [Mass/Vol] 24 mg/dL 7-18 [facility] Thin prep Papanicolaou smear with manual screeningOrdered By: Walter Becker on 05-06-2023 Thin prep Papanicolaou smear with manual screening 10 U/L 15-37 [facility] Thin prep Papanicolaou smear with manual screening 5 5-15 [facility] Laboratory - CoagulationOrde red By: Walter Becker on 04-29-2023 INR Coag (Bld) [Relative time] 2.8 {INR} [facility] Comment on above: Critical Value > 4.0 No Panel InformationOrdered By: Walter Becker on 04-29-2023 2.8 [facility] Whole blood prothrombin time Ordered By: Walter Becker on 04-29-2023 PT Coag (Bld) [Time] 29.6 s 11.7-14.9 [facility] Laboratory - CoagulationOrde red By: Walter Becker on 04-15-2023 INR Coag (Bld) [Relative time] 2.5 {INR} [facility] Comment on above: Critical Value > 4.0 No Panel InformationOrdered By: Walter Becker on 04-15-2023 2.5 [facility] Whole blood prothrombin time Ordered By: Walter Becker on 04-15-2023 PT Coag (Bld) [Time] 27.3 s 11.7-14.9 [facility] Basophil percentageOrdered B y: Walter Becker on 04-09-2023 Basophil percentage 115 mg/dL 74-106 [facility] Basophil percentage 5.8 g/dL 6.4-8.2 [facility] Basophil percentage 0.40 mg/dL 0.20-1.00 [facility] Basophil percentage 141 mmol/L 136-145 [facility] Basophil percentage 3.9 mmol/L 3.5-5.1 [facility] Basophil percentage 106 mmol/L 98-107 [facility] Basophils (Bld) [#/Vol] 10.2 10*3/uL 4.4-11.0 [facility] Bilirubin [Mass/Vol] 0.40 mg/dL 0.20-1.00 [facility] Comment on above: For patients on eltr ombopag therapy, use of Dimension [place] TBIL is not recommended. Chloride [Moles/Vol] 106 mmol/L 98-107 [facility] Glucose [Mass/Vol] 115 mg/dL 74-106 [facility] Comment on above: Fasting Glucose resu lt from 100 to 125 mg/dL suggests IMPAIRED HOMEOSTASIS per A.D.A. criteria. Potassium [Moles/Vol] 3.9 mmol/L 3.5-5.1 [facility] Protein [Mass/Vol] 5.8 g/dL 6.4-8.2 [facility] Sodium [Moles/Vol] 141 mmol/L 136-145 [facility] WBC (Bld) [#/Vol] 10.2 10*3/uL 4.4-11.0 [facility] Blood erythrocytes count (nu mber/volume)Ordered By: Walter Becker on 04-09-2023 RBC (Bld) [#/Vol] 4.16 10*6/uL 4.6-6.2 [facility] Blood hemoglobin measurement (mass/volume)Ordered By: Walter Becker on 04-09-2023 Hemoglobin (Bld) [Mass/Vol] 11.3 g/dL 13.0-16. 5 [facility] Blood platelet mean volumeOr dered By: Walter Becker on 04-09-2023 Platelet mean volume (Bld) [Entitic vol] 9.4 fL 6.2-12.0 [facility] Determination of erythrocyte mean corpuscular volume (MCV)Ordered By: Walter Becker on 04-09-2023 MCV (RBC) [Entitic vol] 86.5 fL 80-94 [facility] Hematocrit Auto (Bld) [Volum e fraction]Ordered By: Walter Becker on 04-09-2023 Hematocrit (Bld) [Volume fraction] 36.0 % 40-54 [facility] Laboratory - Chemistry and C hemistry - challengeOrdered By: Walter Becker on 04-09-2023 ALP [Catalytic activity/Vol] 105 U/L 45-117 [facility] ALT [Catalytic activity/Vol] 22 U/L 16-61 [facility] CO2 [Moles/Vol] 31.0 mmol/L 21.0-32.0 [facility] Globulin (S) [Mass/Vol] 2.9 g/dL 2.2-4.2 [facility] Urea nitrogen/Creatinine [Mass ratio] 29.9 mg/mg 10-20 [facility] - Hematology and Cell countsOrdered By: Walter Becker on 04-09-2023 Erythrocyte distribution width (RBC) [Entitic vol] 46.8 fL 35.1-43.9 [facility] Erythrocyte distribution width (RBC) [Ratio] 14.6 % 11.6-14.6 [facility] MCH (RBC) [Entitic mass] 27.2 pg 27.0-32.0 [facility] MCHC Auto (RBC) [Mass/Vol]Or dered By: Walter Becker on 04-09-2023 MCHC (RBC) [Mass/Vol] 31.4 g/dL 32-36 [facility] No Panel InformationOrdered By: Walter Becker on 04-09-2023 Estimated GFR (MDRD) Amer 101 mL/min >60 [facility] Comment on above: GFR Calc Estimated GFR (MDRD) Non-Af Amer 84 mL/min >60 [facility] Comment on above: Non- GFR Calc 27.2 pg 27.0-32.0 [facility] 14.6 % 11.6-14.6 [facility] 46.8 fl 35.1-43.9 [facility] 84 mL/min >60 [facility] 101 mL/min >60 [facility] 29.9 RATIO 10-20 [facility] 2.9 g/dL 2.2-4.2 [facility] 105 U/L 45-117 [facility] 22 U/L 16-61 [facility] 31.0 mmol/L 21.0-32.0 [facility] Platelets bldOrdered By: Crystal Becker on 04-09-2023 Platelets (Bld) [#/Vol] 229 10*3/uL 150-450 [facility] Serum or plasma albumin antoine urement (mass/volume)Ordered By: Walter Becker on 04-09-2023 Albumin [Mass/Vol] 2.9 g/dL 3.2-5.0 [facility] Serum or plasma albumin/glob ulin mass ratioOrdered By: Walter Becker on 04-09-2023 Albumin/Globulin [Mass ratio] 1.0 {ratio} 0.9-2.4 [facility] Serum or plasma calcium antoine urement (mass/volume)Ordered By: Walter Becker on 04-09-2023 Calcium [Mass/Vol] 9.0 mg/dL 8.5-10.1 [facility] Serum or plasma creatinine m easurement (mass/volume)Ordered By: Walter Becker on 04-09-2023 Creatinine [Mass/Vol] 0.94 mg/dL 0.70-1.30 [facility] Comment on above: The validity of the calculated GFR & GFRAA in patients over 70 years has not been determined. Clinical correlation is essential. Serum or plasma urea nitroge n measurement (mass/volume)Ordered By: Walter Becker on 04-09-2023 Urea nitrogen [Mass/Vol] 28 mg/dL 7-18 [facility] Thin prep Papanicolaou smear with manual screeningOrdered By: Walter Becker on 04-09-2023 Thin prep Papanicolaou smear with manual screening 7 U/L 15-37 [facility] Thin prep Papanicolaou smear with manual screening 4 5-15 [facility] Laboratory - CoagulationOrde red By: Walter Becker on 04-08-2023 INR Coag (Bld) [Relative time] 2.4 {INR} [facility] Comment on above: Critical Value > 4.0 No Panel InformationOrdered By: Walter Becker on 04-08-2023 2.4 [facility] Whole blood prothrombin time Ordered By: Walter Becker on 04-08-2023 PT Coag (Bld) [Time] 25.9 s 11.7-14.9 [facility] Laboratory - CoagulationOrde red By: Walter Becker on 04-01-2023 INR Coag (Bld) [Relative time] 1.9 {INR} [facility] Comment on above: Critical Value > 4.0 No Panel InformationOrdered By: Walter Becker on 04-01-2023 1.9 [facility] Whole blood prothrombin time Ordered By: Walter Becker on 04-01-2023 PT Coag (Bld) [Time] 21.0 s 11.7-14.9 [facility] Laboratory - CoagulationOrde red By: Walter Becker on 03-25-2023 INR Coag (Bld) [Relative time] 1.9 {INR} [facility] Comment on above: Critical Value > 4.0 No Panel InformationOrdered By: Walter Becker on 03-25-2023 1.9 [facility] Whole blood prothrombin time Ordered By: Walter Becker on 03-25-2023 PT Coag (Bld) [Time] 21.1 s 11.7-14.9 [facility] INR in Blood by Coagulation assayOrdered By: Walter Becker on 03-11-2023 INR Coag (Bld) [Relative time] 2.4 {INR} [facility] - CoagulationOrde red By: Walter Becker on 03-11-2023 PT Coag (PPP) [Time] 26.6 s 11.7-14.9 [facility] No Panel InformationOrdered By: Walter Becker on 03-11-2023 26.6 SECONDS 11.7-14.9 [facility] Whole blood hemoglobin A1c/t otal hemoglobin ratio (mass fraction)Ordered By: Walter Becker on 03-11-2023 HbA1c (Bld) [Mass fraction] 5.5 % 3.8-5.6 [facility] Comment on above: Normal < 5.7 % Predi abetic 5.7 - 6.4 % Diabetic >or= 6.5 % Please note range changes. Basophil percentageOrdered B y: Walter Becker on 03-04-2023 Basophil percentage 114 mg/dL 74-106 [facility] Basophil percentage 5.8 g/dL 6.4-8.2 [facility] Basophil percentage 0.30 mg/dL 0.20-1.00 [facility] Basophil percentage 139 mmol/L 136-145 [facility] Basophil percentage 4.0 mmol/L 3.5-5.1 [facility] Basophil percentage 106 mmol/L 98-107 [facility] Bilirubin [Mass/Vol] 0.30 mg/dL 0.20-1.00 [facility] Comment on above: For patients on eltr ombopag therapy, use of Dimension [place] TBIL is not recommended. Chloride [Moles/Vol] 106 mmol/L 98-107 [facility] Glucose [Mass/Vol] 114 mg/dL 74-106 [facility] Comment on above: Fasting Glucose resu lt from 100 to 125 mg/dL suggests IMPAIRED HOMEOSTASIS per A.D.A. criteria. Potassium [Moles/Vol] 4.0 mmol/L 3.5-5.1 [facility] Protein [Mass/Vol] 5.8 g/dL 6.4-8.2 [facility] Sodium [Moles/Vol] 139 mmol/L 136-145 [facility] Blood hemoglobin measurement (mass/volume)Ordered By: Walter Becker on 03-04-2023 Hemoglobin (Bld) [Mass/Vol] 10.6 g/dL 13.0-16. 5 [facility] Hematocrit Auto (Bld) [Volum e fraction]Ordered By: Walter Becker on 03-04-2023 Hematocrit (Bld) [Volume fraction] 35.7 % 40-54 [facility] INR in Blood by Coagulation assayOrdered By: Walter Becker on 03-04-2023 INR Coag (Bld) [Relative time] 2.3 {INR} [facility] Laboratory - Chemistry and C hemistry - challengeOrdered By: Walter Becker on 03-04-2023 ALP [Catalytic activity/Vol] 92 U/L 45-117 [facility] ALT [Catalytic activity/Vol] 25 U/L - [facility] CO2 [Moles/Vol] 28.0 mmol/L 21.0-32.0 [facility] Globulin (S) [Mass/Vol] 3.0 g/dL 2.2-4.2 [facility] Urea nitrogen/Creatinine [Mass ratio] 33.0 mg/mg 10- [facility] - CoagulationOrde red By: Walter Becker on 03-04-2023 PT Coag (PPP) [Time] 25.8 s 11.7-14.9 [facility] No Panel InformationOrdered By: Walter Becker on 03-04-2023 Estimated GFR (MDRD) Amer 88 mL/min >60 [facility] Comment on above: GFR Calc Estimated GFR (MDRD) Non-Af Amer 72 mL/min >60 [facility] Comment on above: Non- GFR Calc 25.8 SECONDS 11.7-14.9 [facility] 72 mL/min >60 [facility] 88 mL/min >60 [facility] 33.0 RATIO 05-03 [facility] 3.0 g/dL 2.2-4.2 [facility] 92 U/L - [facility] 25 U/L [facility] 28.0 mmol/L 21.0-32.0 [facility] Serum or plasma albumin antoine urement (mass/volume)Ordered By: Walter Becker on 03-04-2023 Albumin [Mass/Vol] 2.8 g/dL 3.2-5.0 [facility] Serum or plasma albumin/glob ulin mass ratioOrdered By: Walter Becker on 03-04-2023 Albumin/Globulin [Mass ratio] 0.9 {ratio} 0.9-2.4 [facility] Serum or plasma calcium antoine urement (mass/volume)Ordered By: Walter Becker on 03-04-2023 Calcium [Mass/Vol] 9.1 mg/dL 8.5-10.1 [facility] Serum or plasma creatinine m easurement (mass/volume)Ordered By: Walter Becker on 03-04-2023 Creatinine [Mass/Vol] 1.06 mg/dL 0.70-1.30 [facility] Comment on above: The validity of the calculated GFR & GFRAA in patients over 70 years has not been determined. Clinical correlation is essential. Serum or plasma urea nitroge n measurement (mass/volume)Ordered By: Walter Becker on 03-04-2023 Urea nitrogen [Mass/Vol] 35 mg/dL 7-18 [facility] Thin prep Papanicolaou smear with manual screeningOrdered By: Walter Becker on 03-04-2023 Thin prep Papanicolaou smear with manual screening 12 U/L 15-37 [facility] Thin prep Papanicolaou smear with manual screening 5 5-15 [facility] Laboratory - CoagulationOrde red By: Walter Becker on 03-01-2023 INR Coag (Bld) [Relative time] 2.2 {INR} [facility] Comment on above: Critical Value > 4.0 No Panel InformationOrdered By: Walter Becker on 03-01-2023 2.2 [facility] Whole blood prothrombin time Ordered By: Walter Becker on 03-01-2023 PT Coag (Bld) [Time] 24.4 s 11.7-14.9 [facility] Blood hemoglobin measurement (mass/volume)Ordered By: Walter Becker on 02-25-2023 Hemoglobin (Bld) [Mass/Vol] 11.0 g/dL 13.0-16. 5 [facility] Hematocrit Auto (Bld) [Volum e fraction]Ordered By: Walter Becker on 02-25-2023 Hematocrit (Bld) [Volume fraction] 36.8 % 40-54 [facility] INR in Blood by Coagulation assayOrdered By: Walter Becker on 02-25-2023 INR Coag (Bld) [Relative time] 2.6 {INR} [facility] Laboratory - CoagulationOrde red By: Walter Becker on 02-25-2023 PT Coag (PPP) [Time] 28.0 s 11.7-14.9 [facility] No Panel InformationOrdered By: Walter Becker on 02-25-2023 28.0 SECONDS 11.7-14.9 [facility] - CoagulationOrde red By: Walter Becker on 02-22-2023 INR Coag (Bld) [Relative time] 2.6 {INR} [facility] Comment on above: Critical Value > 4.0 No Panel InformationOrdered By: Walter Becker on 02-22-2023 2.6 [facility] Whole blood prothrombin time Ordered By: Walter Becker on 02-22-2023 PT Coag (Bld) [Time] 28.4 s 11.7-14.9 [facility] No Panel InformationOrdered By: Walter Becker on 02-20-2023 2.9 [facility] Whole blood prothrombin time Ordered By: Walter Becker on 02-20-2023 PT Coag (Bld) [Time] 30.7 s 11.7-14.9 [facility] Blood hemoglobin measurement (mass/volume)Ordered By: Walter Becker on 02-18-2023 Hemoglobin (Bld) [Mass/Vol] 8.8 g/dL 13.0-16. 5 [facility] Hematocrit Auto (Bld) [Volum e fraction]Ordered By: Walter Becker on 02-18-2023 Hematocrit (Bld) [Volume fraction] 28.2 % 40-54 [facility] INR in Blood by Coagulation assayOrdered By: Walter Becker on 02-18-2023 INR Coag (Bld) [Relative time] 2.8 {INR} [facility] No Panel InformationOrdered By: Walter Becker on 02-18-2023 29.5 SECONDS 11.7-14.9 [facility] No Panel InformationOrdered By: Walter Becker on 02-14-2023 2.2 [facility] Whole blood prothrombin time Ordered By: Walter Becker on 02-14-2023 PT Coag (Bld) [Time] 24.3 s 11.7-14.9 [facility] Absolute lymphocyte countOrd ered By: Gabriel Giraldo on 02-13-2023 Lymphocytes Auto (Unsp spec) [#/Vol] 0.84 10*3/uL 0.83-4.51 [facility] Basophil percentageOrdered B y: Gabriel Giraldo on 02-13-2023 Basophils (Bld) [#/Vol] 5.4 10*3/uL 4.4-11.0 [facility] Basophils (Bld) [#/Vol] 3.6 10*3/uL 2.0-7.7 [facility] Basophils/100 WBC (Bld) 67.5 % 47-70 [facility] Basophils/100 WBC (Bld) 4.1 % 0-5 [facility] Basophils/100 WBC (Bld) 0.4 % 0-1 [facility] Blood erythrocytes count (nu mber/volume)Ordered By: Gabriel Giraldo on 02-13-2023 RBC (Bld) [#/Vol] 2.76 10*6/uL 4.6-6.2 [facility] Blood hemoglobin measurement (mass/volume)Ordered By: Gabriel Giraldo on 02-13-2023 Hemoglobin (Bld) [Mass/Vol] 7.5 g/dL 13.0-16. 5 [facility] Blood lymphocytes/100 leukoc ytesOrdered By: Gabriel Giraldo on 02-13-2023 Lymphocytes/100 WBC (Bld) 15.7 % 19-41 [facility] Blood monocytes/100 leukocyt esOrdered By: Gabriel Giraldo on 02-13-2023 Monocytes/100 WBC (Bld) 11.2 % 0-10 [facility] Blood platelet mean volumeOr dered By: Gabriel Giraldo on 02-13-2023 Platelet mean volume (Bld) [Entitic vol] 9.2 fL 6.2-12.0 [facility] COVID-19 virus antigen assay Ordered By: Gabriel Giraldo on 02-13-2023 SARS-CoV-2 (COVID-19) Ag IA.rapid Ql (Resp) [facility] SARS-CoV-2 (COVID-19) Ag IA.rapid Ql (Resp) [facility] Determination of erythrocyte mean corpuscular volume (MCV)Ordered By: Gabriel Giraldo on 02-13-2023 MCV (RBC) [Entitic vol] 88.4 fL 80-94 [facility] Glucose Glucometer (BldC) [M ass/Vol]Ordered By: Gabriel Giraldo on 02-13-2023 Glucose [Mass/Vol] 146 mg/dL 74-106 [facility] Hematocrit Auto (Bld) [Volum e fraction]Ordered By: Gabriel Giraldo on 02-13-2023 Hematocrit (Bld) [Volume fraction] 24.4 % 40-54 [facility] MCHC Auto (RBC) [Mass/Vol]Or dered By: Gabriel Giraldo on 02-13-2023 MCHC (RBC) [Mass/Vol] 30.7 g/dL 32-36 [facility] No Panel InformationOrdered By: Gabriel Giraldo on 02-13-2023 27.2 pg 27.0-32.0 [facility] 16.6 % 11.6-14.6 [facility] 54.5 fl 35.1-43.9 [facility] 1.100 % 0.0-0.9 [facility] 0.9 % 0-5 [facility] Platelets bldOrdered By: Elis Giraldo on 02-13-2023 Platelets (Bld) [#/Vol] 194 10*3/uL 150-450 [facility] INR in Blood by Coagulation assayOrdered By: Gabriel Giraldo on 02-12-2023 INR Coag (Bld) [Relative time] 1.6 {INR} [facility] No Panel InformationOrdered By: Smith Leija on 02-12-2023 No growth in 5 days. [facility] No growth in 5 days. [facility] No Panel InformationOrdered By: Gabriel Giraldo on 02-12-2023 19.3 SECONDS 11.7-14.9 [facility] Basophil percentageOrdered B y: Dandy Sauer on 02-11-2023 Basophil percentage 2.2 mmol/L 0.4-2.0 [facility] Basophil percentage 2.8 mmol/L 0.4-2.0 [facility] Basophil percentageOrdered B y: Walter Becker on 02-11-2023 Basophil percentage 168 mg/dL 74-106 [facility] Basophil percentage 135 mmol/L 136-145 [facility] Basophil percentage 3.7 mmol/L 3.5-5.1 [facility] Basophil percentage 103 mmol/L 98-107 [facility] Basophils (Bld) [#/Vol] 10.2 10*3/uL 4.4-11.0 [facility] Blood erythrocytes count (nu mber/volume)Ordered By: Walter Becker on 02-11-2023 RBC (Bld) [#/Vol] 3.16 10*6/uL 4.6-6.2 [facility] Blood hemoglobin measurement (mass/volume)Ordered By: Walter Becker on 02-11-2023 Hemoglobin (Bld) [Mass/Vol] 8.7 g/dL 13.0-16. 5 [facility] Blood platelet mean volumeOr dered By: Walter Becker on 02-11-2023 Platelet mean volume (Bld) [Entitic vol] 9.3 fL 6.2-12.0 [facility] Determination of erythrocyte mean corpuscular volume (MCV)Ordered By: Walter Becker on 02-11-2023 MCV (RBC) [Entitic vol] 87.0 fL 80-94 [facility] Hematocrit Auto (Bld) [Volum e fraction]Ordered By: Walter Becker on 02-11-2023 Hematocrit (Bld) [Volume fraction] 27.5 % 40-54 [facility] INR in Blood by Coagulation assayOrdered By: Walter Becker on 02-11-2023 INR Coag (Bld) [Relative time] 1.5 {INR} [facility] MCHC Auto (RBC) [Mass/Vol]Or dered By: Walter Becker on 02-11-2023 MCHC (RBC) [Mass/Vol] 31.6 g/dL 32-36 [facility] No Panel InformationOrdered By: Walter Becker on 02-11-2023 27.5 pg 27.0-32.0 [facility] 17.3 % 11.6-14.6 [facility] 55.7 fl 35.1-43.9 [facility] 18.2 SECONDS 11.7-14.9 [facility] 67 mL/min >60 [facility] 81 mL/min >60 [facility] 21.1 RATIO 10-20 [facility] 27.0 mmol/L 21.0-32.0 [facility] Platelets bldOrdered By: Crystal Becker on 02-11-2023 Platelets (Bld) [#/Vol] 200 10*3/uL 150-450 [facility] Serum or plasma calcium antoine urement (mass/volume)Ordered By: Walter Becker on 02-11-2023 Calcium [Mass/Vol] 8.7 mg/dL 8.5-10.1 [facility] Serum or plasma creatinine m easurement (mass/volume)Ordered By: Walter Becker on 02-11-2023 Creatinine [Mass/Vol] 1.14 mg/dL 0.70-1.30 [facility] Serum or plasma urea nitroge n measurement (mass/volume)Ordered By: Walter Becker on 02-11-2023 Urea nitrogen [Mass/Vol] 24 mg/dL 7-18 [facility] Thin prep Papanicolaou smear with manual screeningOrdered By: Walter Becker on 02-11-2023 Thin prep Papanicolaou smear with manual screening 5 5-15 [facility] Absolute lymphocyte countOrd ered By: Geremias Carey on 02-10-2023 Lymphocytes Auto (Unsp spec) [#/Vol] 0.46 10*3/uL 0.83-4.51 [facility] Bacteria identified Cx Nom ( U)Ordered By: Geremias Carey on 02-10-2023 Culture, urine Klebsiella pneumonia e sp pneum [facility] Culture, urine Klebsiella pneumonia e sp pneum [facility] Basophil percentageOrdered B y: Geremias Carey on 02-10-2023 Basophil percentage 1.9 mmol/L 0.4-2.0 [facility] Basophil percentage 25-50 SEEN /hpf 0-5 [facility] Basophil percentage 158 mg/dL 74-106 [facility] Basophil percentage 5.6 g/dL 6.4-8.2 [facility] Basophil percentage 0.90 mg/dL 0.20-1.00 [facility] Basophil percentage 136 mmol/L 136-145 [facility] Basophil percentage 3.7 mmol/L 3.5-5.1 [facility] Basophil percentage 103 mmol/L 98-107 [facility] Basophils (Bld) [#/Vol] 10.8 10*3/uL 4.4-11.0 [facility] Basophils (Bld) [#/Vol] 9.2 10*3/uL 2.0-7.7 [facility] Basophils/100 WBC (Bld) 84.8 % 47-70 [facility] Basophils/100 WBC (Bld) 0.2 % 0-5 [facility] Basophils/100 WBC (Bld) 0.1 % 0-1 [facility] Bilirubin Test strip Ql (U)O rdered By: Geremias Carey on 02-10-2023 Bilirubin Ql (U) Negative Negative [facility] Blood erythrocytes count (nu mber/volume)Ordered By: Geremias Carey on 02-10-2023 RBC (Bld) [#/Vol] 3.20 10*6/uL 4.6-6.2 [facility] Blood hemoglobin measurement (mass/volume)Ordered By: Geremias Carey on 02-10-2023 Hemoglobin (Bld) [Mass/Vol] 8.8 g/dL 13.0-16. 5 [facility] Blood lymphocytes/100 leukoc ytesOrdered By: Geremias Carey on 02-10-2023 Lymphocytes/100 WBC (Bld) 4.3 % 19-41 [facility] Blood manual differential co mment interpretation (narrative result)Ordered By: Geremias Carey on 02-10-2023 Manual differential comment Ori (Bld) [Interp] SCANNED [facility] Blood monocytes/100 leukocyt esOrdered By: Geremias Carey on 02-10-2023 Monocytes/100 WBC (Bld) 9.8 % 0-10 [facility] Blood platelet mean volumeOr dered By: Geremias Carey on 02-10-2023 Platelet mean volume (Bld) [Entitic vol] 9.3 fL 6.2-12.0 [facility] Determination of erythrocyte mean corpuscular volume (MCV)Ordered By: Geremias Carey on 02-10-2023 MCV (RBC) [Entitic vol] 87.8 fL 80-94 [facility] Direct bilirubinOrdered By: Geremias Carey on 02-10-2023 Bilirubin.direct [Mass/Vol] 0.43 mg/dL 0.00-0.3 0 [facility] Hematocrit Auto (Bld) [Volum e fraction]Ordered By: Geremias Carey on 02-10-2023 Hematocrit (Bld) [Volume fraction] 28.1 % 40-54 [facility] INR in Blood by Coagulation assayOrdered By: Geremias Carey on 02-10-2023 INR Coag (Bld) [Relative time] 1.4 {INR} [facility] Influenza virus A and B and SARS-CoV-2 (COVID-19) Ag panel - Upper respiratory specimOrdered By: Geremias Carey on 02-10-2023 SARS-CoV-2 (COVID-19) RNA ANGELY+probe Ql (Resp) [facility] SARS-CoV-2 (COVID-19) RNA ANGELY+probe Ql (Resp) [facility] Ketones Test strip Ql (U)Ord ered By: Geremias Carey on 02-10-2023 Ketones Ql (U) 5 mg/dl Negative [facility] MCHC Auto (RBC) [Mass/Vol]Or dered By: Geremias Carey on 02-10-2023 MCHC (RBC) [Mass/Vol] 31.3 g/dL 32-36 [facility] Mucus LM Ql (Urine sed)Order ed By: Geremias Carey on 02-10-2023 Mucus Ql (Urine sed) 0 SEEN /hpf [facility] Nitrite Test strip Ql (U)Ord ered By: Geremias Carey on 02-10-2023 Nitrite Ql (U) Negative Negative [facility] No Panel InformationOrdered By: Geremias Carey on 02-10-2023 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0 mmol/L 21.0-32.0 [facility] Platelets bldOrdered By: Luis Enrique Carey on 02-10-2023 Platelets (Bld) [#/Vol] 189 10*3/uL 150-450 [facility] Protein Test strip Ql (U)Ord ered By: Geremias Carey on 02-10-2023 Protein Ql (U) 100 mg/dl Negative [facility] Serum or plasma albumin antoine urement (mass/volume)Ordered By: Geremias Carey on 02-10-2023 Albumin [Mass/Vol] 2.3 g/dL 3.2-5.0 [facility] Serum or plasma calcium antoine urement (mass/volume)Ordered By: Geremias Carey on 02-10-2023 Calcium [Mass/Vol] 8.3 mg/dL 8.5-10.1 [facility] Serum or plasma creatinine m easurement (mass/volume)Ordered By: Geremias Carey on 02-10-2023 Creatinine [Mass/Vol] 1.09 mg/dL 0.70-1.30 [facility] Serum or plasma urea nitroge n measurement (mass/volume)Ordered By: Geremias Carey on 02-10-2023 Urea nitrogen [Mass/Vol] 26 mg/dL 7-18 [facility] Serum procalcitonin measurem entOrdered By: Geremias Carey on 02-10-2023 Procalcitonin [Mass/Vol] 1.43 ng/mL 0.00-0.09 [facility] Squamous epithelial cells de tection in urine sediment by light microscopyOrdered By: Geremias Carey on 02-10-2023 Epithelial cells.squamous LM Ql (Urine sed) 0 SEEN /hpf 0-5 [facility] Thin prep Papanicolaou smear with manual screeningOrdered By: Geremias Carey on 02-10-2023 Thin prep Papanicolaou smear with manual screening 10 U/L 15-37 [facility] Thin prep Papanicolaou smear with manual screening 9 5-15 [facility] Urine blood detectionOrdered By: Geremias Carey on 02-10-2023 RBC Ql (U) 250 /ul Negative [facility] RBC Ql (U) 25-50 SEEN /hpf 0-5 [facility] Urine clarityOrdered By: Luis Enrique Carey on 02-10-2023 Clarity (U) Sl. Cloudy Clear [facility] Urine color determinationOrd ered By: Geremias Carey on 02-10-2023 Color (U) Yellow Yellow [facility] Urine glucose detectionOrder ed By: Geremias Carey on 02-10-2023 Glucose Ql (U) Normal mg/dl Normal [facility] Urine leukocyte esterase det ection by dipstickOrdered By: Geremias Carey on 02-10-2023 Leukocyte esterase Test strip Ql (U) 500 /ul Negative [facility] Urine pHOrdered By: Geremias torrez on 02-10-2023 pH (U) 5.0 [pH] 5.0 - 8.0 [facility] Urine sediment bacteria coun t by microscopy (number/high power field)Ordered By: Geremias Carey on 02-10-2023 Bacteria LM.HPF (Urine sed) [#/Area] 4 /[HPF] None Seen [facility] Urine specific gravity measu rementOrdered By: Geremias Carey on 02-10-2023 Specific gravity (U) [Rel density] 1.015 1.002-1.03 0 [facility] Urobilinogen Auto test strip Ql (U)Ordered By: Geremias Carey on 02-10-2023 Urobilinogen Ql (U) Normal mg/dl Normal [facility] Blood hemoglobin measurement (mass/volume)Ordered By: Walter Becker on 02-07-2023 Hemoglobin (Bld) [Mass/Vol] 8.8 g/dL 13.0-16. 5 [facility] Hematocrit Auto (Bld) [Volum e fraction]Ordered By: Walter Becker on 02-07-2023 Hematocrit (Bld) [Volume fraction] 29.0 % 40-54 [facility] COVID-19 virus antigen assay Ordered By: Caryl Mcdermott on 02-05-2023 SARS-CoV-2 (COVID-19) Ag IA.rapid Ql (Resp) [facility] SARS-CoV-2 (COVID-19) Ag IA.rapid Ql (Resp) [facility] Glucose Glucometer (BldC) [M ass/Vol]Ordered By: Caryl Mcdermott on 02-05-2023 Glucose [Mass/Vol] 163 mg/dL 74-106 [facility] Absolute lymphocyte countOrd ered By: Yisel Rendon on 02-04-2023 Lymphocytes Auto (Unsp spec) [#/Vol] 1.39 10*3/uL 0.83-4.51 [facility] Basophil percentageOrdered B y: Yisel Rendon on 02-04-2023 Basophil percentage 151 mg/dL 74-106 [facility] Basophil percentage 141 mmol/L 136-145 [facility] Basophil percentage 3.5 mmol/L 3.5-5.1 [facility] Basophil percentage 110 mmol/L 98-107 [facility] Basophils (Bld) [#/Vol] 8.1 10*3/uL 4.4-11.0 [facility] Basophils (Bld) [#/Vol] 5.8 10*3/uL 2.0-7.7 [facility] Basophils/100 WBC (Bld) 71.5 % 47-70 [facility] Basophils/100 WBC (Bld) 2.6 % 0-5 [facility] Basophils/100 WBC (Bld) 0.1 % 0-1 [facility] Blood erythrocytes count (nu mber/volume)Ordered By: Yisel Rendon on 02-04-2023 RBC (Bld) [#/Vol] 3.23 10*6/uL 4.6-6.2 [facility] Blood hemoglobin measurement (mass/volume)Ordered By: Yisel Rendon on 02-04-2023 Hemoglobin (Bld) [Mass/Vol] 8.8 g/dL 13.0-16. 5 [facility] Blood lymphocytes/100 leukoc ytesOrdered By: Yisel Rendon on 02-04-2023 Lymphocytes/100 WBC (Bld) 17.2 % 19-41 [facility] Blood monocytes/100 leukocyt esOrdered By: Yisel Rendon on 02-04-2023 Monocytes/100 WBC (Bld) 6.3 % 0-10 [facility] Blood platelet mean volumeOr dered By: Yisel Rendon on 02-04-2023 Platelet mean volume (Bld) [Entitic vol] 8.8 fL 6.2-12.0 [facility] Determination of erythrocyte mean corpuscular volume (MCV)Ordered By: Yisel Rendon on 02-04-2023 MCV (RBC) [Entitic vol] 89.5 fL 80-94 [facility] Hematocrit Auto (Bld) [Volum e fraction]Ordered By: Yisel Rendon on 02-04-2023 Hematocrit (Bld) [Volume fraction] 28.9 % 40-54 [facility] MCHC Auto (RBC) [Mass/Vol]Or dered By: Yisel Rendon on 02-04-2023 MCHC (RBC) [Mass/Vol] 30.4 g/dL 32-36 [facility] No Panel InformationOrdered By: Yisel Rendon on 02-04-2023 27.2 pg 27.0-32.0 [facility] 17.8 % 11.6-14.6 [facility] 56.6 fl 35.1-43.9 [facility] 2.300 % 0.0-0.9 [facility] 0 % 0-5 [facility] 67 mL/min >60 [facility] 81 mL/min >60 [facility] 63.83 ml/min [facility] 10.6 RATIO 10-20 [facility] 25.0 mmol/L 21.0-32.0 [facility] Platelets bldOrdered By: José Luis Rendon on 02-04-2023 Platelets (Bld) [#/Vol] 341 10*3/uL 150-450 [facility] Serum or plasma calcium antoine urement (mass/volume)Ordered By: Yisel Rendon on 02-04-2023 Calcium [Mass/Vol] 8.4 mg/dL 8.5-10.1 [facility] Serum or plasma creatinine m easurement (mass/volume)Ordered By: Yisel Rendon on 02-04-2023 Creatinine [Mass/Vol] 1.13 mg/dL 0.70-1.30 [facility] Serum or plasma urea nitroge n measurement (mass/volume)Ordered By: Yisel Rendon on 02-04-2023 Urea nitrogen [Mass/Vol] 12 mg/dL 7-18 [facility] Thin prep Papanicolaou smear with manual screeningOrdered By: Yisel Rendon on 02-04-2023 Thin prep Papanicolaou smear with manual screening 6 5-15 [facility] Blood band neutrophil count as percentage of total leukocytesOrdered By: Yisel Rendon on 01-31-2023 Band form neutrophils/100 WBC (Bld) 3 % 0-5 [facility] Blood eosinophils/100 leukoc ytesOrdered By: Yisel Rendon on 01-31-2023 Eosinophils/100 WBC (Bld) 2 % 0-5 [facility] Blood lymphocytes/100 leukoc ytesOrdered By: Yisel Rendon on 01-31-2023 Lymphocytes/100 WBC (Bld) 22 % 19-41 [facility] Blood metamyelocytes/100 yolis kocytesOrdered By: Yisel Rendon on 01-31-2023 Metamyelocytes/100 WBC (Bld) 1 % 0-1 [facility] Blood monocytes/100 leukocyt esOrdered By: Yisel Rendon on 01-31-2023 Monocytes/100 WBC (Bld) 5 % 0-10 [facility] Blood platelet adequacy dete ction by light microscopyOrdered By: Yisel Rendon on 01-31-2023 Platelets LM Ql (Bld) ADEQUATE ADEQ [facility] Blood polychromasia detectio n by light microscopyOrdered By: Yisel Rendon on 01-31-2023 Polychromasia LM Ql (Bld) RARE [facility] Blood segmented neutrophils/ 100 leukocytesOrdered By: Yisel Rendon on 01-31-2023 Segmented neutrophils/100 WBC (Bld) 64 % 47-70 [facility] No Panel InformationOrdered By: Yisle Rendon on 01-31-2023 3 % 0-0 [facility] Review by pathologistOrdered By: Yisel Rendon on 01-31-2023 Pathologist review Ori (Unsp spec) [Interp] Reviewed [facility] Total cell countOrdered By: Yisel Rendon on 01-31-2023 Cells counted Molgen (Bld/Tiss) [#] 100 MANUAL DIFF [facility] Basophil percentageOrdered B y: iYsel Rendon on 01-30-2023 Basophil percentage 148 U/L 87-241 [facility] Blood manual differential co mment interpretation (narrative result)Ordered By: Yisel Rendon on 01-30-2023 Manual differential comment Ori (Bld) [Interp] SCANNED [facility] Hemoglobin in reticulocytes (mass per reticulocyte)Ordered By: Yisel Rendon on 01-30-2023 Hemoglobin (Reticulocytes) [Entitic mass] 22.8 pg 30-35 [facility] Hypochromatic red blood cell detectionOrdered By: Yisel Rendon on 01-30-2023 Hypochromia Ql (Bld) 1+ [facility] Iron measurement (mass/mass) Ordered By: Yisel Rendon on 01-30-2023 Iron (Unsp spec) [Mass/Mass] 28 ug/dL 65-175 [facility] No Panel InformationOrdered By: Yisel Rendon on 01-30-2023 RARE % [facility] 3.53 % 0.5-1.5 [facility] 40.30 % 3.00-15.90 [facility] 635 pg/mL 211-911 [facility] 166 ug/dL 250-450 [facility] Serum or plasma ferritin hank surement (mass/volume)Ordered By: Yisel Rendon on 01-30-2023 Ferritin [Mass/Vol] 138 ng/mL 26-388 [facility] Serum or plasma folate measu rement (mass/volume)Ordered By: Yisel Rendon on 01-30-2023 Folate [Mass/Vol] 4.60 ng/mL 3.1-55.4 [facility] Serum or plasma iron saturat ion measurement (mass fraction)Ordered By: Yisel Rendon on 01-30-2023 Iron saturation [Mass fraction] 16.9 % 15.0-55.0 [facility] No Panel InformationOrdered By: Yisel Rendon on 01-29-2023 RARE [facility] Vancomycin troughOrdered By: Karen Aly on 01-29-2023 Vancomycin trough [Mass/Vol] 7.8 ug/mL 5.0-15.0 [facility] Basophil percentageOrdered B y: Karen Aly on 01-28-2023 Basophil percentage 5.8 g/dL 6.4-8.2 [facility] Basophil percentage 0.70 mg/dL 0.20-1.00 [facility] No Panel InformationOrdered By: Karen Aly on 01-28-2023 3.8 g/dL 2.2-4.2 [facility] 81 U/L 45-117 [facility] 85 U/L 16-61 [facility] Serum or plasma albumin antoine urement (mass/volume)Ordered By: Karen Aly on 01-28-2023 Albumin [Mass/Vol] 2.0 g/dL 3.2-5.0 [facility] Serum or plasma albumin/glob ulin mass ratioOrdered By: Karen Jermain on 01-28-2023 Albumin/Globulin [Mass ratio] 0.5 {ratio} 0.9-2.4 [facility] Thin prep Papanicolaou smear with manual screeningOrdered By: [facility] Jermain on 01-28-2023 Thin prep Papanicolaou smear with manual screening 49 U/L 15-37 [facility] Absolute lymphocyte countOrd ered By: Syed Allen on 01-27-2023 Lymphocytes Auto (Unsp spec) [#/Vol] 1.35 10*3/uL 0.83-4.51 [facility] Basophil percentageOrdered B y: Karen Aly on 01-27-2023 Basophil percentage 2.6 mg/dL 2.5-4.9 [facility] Basophil percentageOrdered B y: Syed Allen on 01-27-2023 Basophils/100 WBC (Bld) 0.1 % 0-1 [facility] Bilirubin [Mass/Vol] 0.50 mg/dL 0.20-1.00 [facility] Comment on above: For patients on eltr ombopag therapy, use of Dimension [place] TBIL is not recommended. Chloride [Moles/Vol] 111 mmol/L 98-107 [facility] Eosinophils/100 WBC (Bld) 2.9 % 0-5 [facility] Glucose [Mass/Vol] 215 mg/dL 74-106 [facility] Comment on above: Glucose result great er than or equal to 200 mg/dLsuggests DIABETES MELLITUS per A.D.A. criteria. Neutrophils (Bld) [#/Vol] 8.0 10*3/uL 2.0-7.7 [facility] Neutrophils/100 WBC (Bld) 73.8 % 47-70 [facility] Potassium [Moles/Vol] 4.0 mmol/L 3.5-5.1 [facility] Protein [Mass/Vol] 5.3 g/dL 6.4-8.2 [facility] Sodium [Moles/Vol] 140 mmol/L 136-145 [facility] WBC (Bld) [#/Vol] 10.9 10*3/uL 4.4-11.0 [facility] Blood erythrocytes count (nu mber/volume)Ordered By: Syed Allen on 01-27-2023 RBC (Bld) [#/Vol] 2.91 10*6/uL 4.6-6.2 [facility] Blood hemoglobin measurement (mass/volume)Ordered By: Syed Allen on 01-27-2023 Hemoglobin (Bld) [Mass/Vol] 8.2 g/dL 13.0-16. 5 [facility] Blood lymphocytes/100 leukoc ytesOrdered By: Syed Allen on 01-27-2023 Lymphocytes/100 WBC (Bld) 12.4 % 19-41 [facility] Blood monocytes/100 leukocyt esOrdered By: Syed Allen on 01-27-2023 Monocytes/100 WBC (Bld) 8.2 % 0-10 [facility] Blood platelet mean volumeOr dered By: Syed Allen on 01-27-2023 Platelet mean volume (Bld) [Entitic vol] 9.9 fL 6.2-12.0 [facility] Determination of erythrocyte mean corpuscular volume (MCV)Ordered By: Syed Allen on 01-27-2023 MCV (RBC) [Entitic vol] 88.0 fL 80-94 [facility] Hematocrit Auto (Bld) [Volum e fraction]Ordered By: Syed Allen on 01-27-2023 Hematocrit (Bld) [Volume fraction] 25.6 % 40-54 [facility] INR in Blood by Coagulation assayOrdered By: Syed Allen on 01-27-2023 INR Coag (Bld) [Relative time] 1.6 {INR} [facility] Laboratory - Chemistry and C hemistry - challengeOrdered By: Syed Allen on 01-27-2023 ALP [Catalytic activity/Vol] 78 U/L 45-117 [facility] ALT [Catalytic activity/Vol] 81 U/L 16-61 [facility] CO2 [Moles/Vol] 25.0 mmol/L 21.0-32.0 [facility] Globulin (S) [Mass/Vol] 3.5 g/dL 2.2-4.2 [facility] Lipase [Catalytic activity/Vol] 233 U/L 13-75 [facility] Comment on above: Please note:LIPASE r evised reference range effective 22. New Lipase methodology. Expected to produce lower values than the previous assay method. NEW Reference Range: 13 - 75 U/L Urea nitrogen/Creatinine [Mass ratio] 20.4 mg/mg 10-20 [facility] Laboratory - CoagulationOrde red By: Syed Allen on 01-27-2023 PT Coag (PPP) [Time] 19.4 s 11.7-14.9 [facility] Laboratory - Hematology and Cell countsOrdered By: Syed Allen on 01-27-2023 Erythrocyte distribution width (RBC) [Entitic vol] 49.3 fL 35.1-43.9 [facility] Erythrocyte distribution width (RBC) [Ratio] 15.5 % 11.6-14.6 [facility] Immature granulocytes/100 WBC (Bld) 2.600 % 0.0-0.9 [facility] Comment on above: IG% - Immature Granu locytes (promyelocytes, myelocytes and metamyelocytes) > 1% indicates that a LEFT SHIFT is Present. MCH (RBC) [Entitic mass] 28.2 pg 27.0-32.0 [facility] Nucleated RBC/100 WBC (Bld) [Ratio] 0.2 % 0-5 [facility] MCHC Auto (RBC) [Mass/Vol]Or dered By: Syed Allen on 01-27-2023 MCHC (RBC) [Mass/Vol] 32.0 g/dL 32-36 [facility] No Panel InformationOrdered By: Karen Aly on 01-27-2023 Negative Negative [facility] 1.7 mg/dL 1.6-2.6 [facility] No Panel InformationOrdered By: Syed Allen on 01-27-2023 Estimated Creatinine Clearance Calc 50.80 ml/min [facility] Estimated GFR (MDRD) Amer 63 mL/min >60 [facility] Comment on above: GFR Calc Estimated GFR (MDRD) Non-Af Amer 52 mL/min >60 [facility] Comment on above: Non- GFR Calc 19.4 SECONDS 11.7-14.9 [facility] 233 U/L 13-75 [facility] Platelets bldOrdered By: Glenroy Allen on 01-27-2023 Platelets (Bld) [#/Vol] 259 10*3/uL 150-450 [facility] Serum or plasma albumin antoine urement (mass/volume)Ordered By: Syed Allen on 01-27-2023 Albumin [Mass/Vol] 1.8 g/dL 3.2-5.0 [facility] Serum or plasma albumin/glob ulin mass ratioOrdered By: Syed Allen on 01-27-2023 Albumin/Globulin [Mass ratio] 0.5 {ratio} 0.9-2.4 [facility] Serum or plasma calcium antoine urement (mass/volume)Ordered By: Syed Allen on 01-27-2023 Calcium [Mass/Vol] 8.3 mg/dL 8.5-10.1 [facility] Serum or plasma creatinine m easurement (mass/volume)Ordered By: Syed Allen on 01-27-2023 Creatinine [Mass/Vol] 1.42 mg/dL 0.70-1.30 [facility] Comment on above: The validity of the calculated GFR & GFRAA in patients over 70 years has not been determined. Clinical correlation is essential. Serum or plasma urea nitroge n measurement (mass/volume)Ordered By: Syed Allen on 01-27-2023 Urea nitrogen [Mass/Vol] 29 mg/dL 7-18 [facility] Serum procalcitonin measurem entOrdered By: Karen Aly on 01-27-2023 Procalcitonin [Mass/Vol] 0.12 ng/mL 0.00-0.09 [facility] Thin prep Papanicolaou smear with manual screeningOrdered By: Syed Allen on 01-27-2023 Thin prep Papanicolaou smear with manual screening 68 U/L 15-37 [facility] Thin prep Papanicolaou smear with manual screening 4 5-15 [facility] Urine Legionella pneumophila antigen detectionOrdered By: Karen Aly on 01-27-2023 L. pneumophila Ag Ql (U) [facility] Absolute lymphocyte countOrd ered By: Ryan Tinoco on 01-26-2023 Lymphocytes Auto (Unsp spec) [#/Vol] 0.69 10*3/uL 0.83-4.51 [facility] Basophil percentageOrdered B y: Karen Aly on 01-26-2023 Basophil percentage 2.4 mg/dL 2.5-4.9 [facility] Basophil percentageOrdered B y: Ryan Tinoco on 01-26-2023 Basophil percentage 235 mg/dL 74-106 [facility] Basophil percentage 143 mmol/L 136-145 [facility] Basophil percentage 3.8 mmol/L 3.5-5.1 [facility] Basophil percentage 114 mmol/L 98-107 [facility] Basophils (Bld) [#/Vol] 8.5 10*3/uL 4.4-11.0 [facility] Basophils (Bld) [#/Vol] 6.7 10*3/uL 2.0-7.7 [facility] Basophils/100 WBC (Bld) 0.1 % 0-1 [facility] Basophils/100 WBC (Bld) 78.4 % 47-70 [facility] Basophils/100 WBC (Bld) 1.6 % 0-5 [facility] Chloride [Moles/Vol] 114 mmol/L 98-107 [facility] Eosinophils/100 WBC (Bld) 1.6 % 0-5 [facility] Glucose [Mass/Vol] 235 mg/dL 74-106 [facility] Comment on above: Glucose result great er than or equal to 200 mg/dLsuggests DIABETES MELLITUS per A.D.A. criteria. Neutrophils (Bld) [#/Vol] 6.7 10*3/uL 2.0-7.7 [facility] Neutrophils/100 WBC (Bld) 78.4 % 47-70 [facility] Potassium [Moles/Vol] 3.8 mmol/L 3.5-5.1 [facility] Sodium [Moles/Vol] 143 mmol/L 136-145 [facility] WBC (Bld) [#/Vol] 8.5 10*3/uL 4.4-11.0 [facility] Blood erythrocytes count (nu mber/volume)Ordered By: Ryan Tinoco on 01-26-2023 RBC (Bld) [#/Vol] 3.06 10*6/uL 4.6-6.2 [facility] Blood hemoglobin measurement (mass/volume)Ordered By: Ryan Tinoco on 01-26-2023 Hemoglobin (Bld) [Mass/Vol] 8.6 g/dL 13.0-16. 5 [facility] Blood lymphocytes/100 leukoc ytesOrdered By: Ryan Tinoco on 01-26-2023 Lymphocytes/100 WBC (Bld) 8.1 % 19-41 [facility] Blood monocytes/100 leukocyt esOrdered By: Ryan Tinoco on 01-26-2023 Monocytes/100 WBC (Bld) 9.6 % 0-10 [facility] Blood platelet mean volumeOr dered By: Ryan Tinoco on 01-26-2023 Platelet mean volume (Bld) [Entitic vol] 9.9 fL 6.2-12.0 [facility] COVID-19 virus antigen assay Ordered By: Ryan Tinoco on 01-26-2023 SARS-CoV-2 (COVID-19) Ag IA.rapid Ql (Resp) [facility] SARS-CoV-2 (COVID-19) Ag IA.rapid Ql (Resp) [facility] Determination of erythrocyte mean corpuscular volume (MCV)Ordered By: Ryan Tinoco on 01-26-2023 MCV (RBC) [Entitic vol] 88.6 fL 80-94 [facility] Glucose Glucometer (dC) [M ass/Vol]Ordered By: Ryan Tinoco on 01-26-2023 Glucose [Mass/Vol] 230 mg/dL 74-106 [facility] Comment on above: MANAGEMENT OF PATIEN T CARE PER NURSING PROTOCOL Hematocrit Auto (Bld) [Volum e fraction]Ordered By: Ryan Tinoco on 01-26-2023 Hematocrit (Bld) [Volume fraction] 27.1 % 40-54 [facility] Laboratory - Chemistry and C hemistry - challengeOrdered By: Ryan Tinoco on 01-26-2023 CO2 [Moles/Vol] 23.0 mmol/L 21.0-32.0 [facility] Urea nitrogen/Creatinine [Mass ratio] 18.8 mg/mg 10-20 [facility] Laboratory - Chemistry and C hemistry - challengeOrdered By: Karen Aly on 01-26-2023 Magnesium [Mass/Vol] 1.8 mg/dL 1.6-2.6 [facility] Laboratory - Hematology and Cell countsOrdered By: Ryan Tinoco on 01-26-2023 Erythrocyte distribution width (RBC) [Entitic vol] 50.6 fL 35.1-43.9 [facility] Erythrocyte distribution width (RBC) [Ratio] 15.9 % 11.6-14.6 [facility] Immature granulocytes/100 WBC (Bld) 2.200 % 0.0-0.9 [facility] Comment on above: IG% - Immature Granu locytes (promyelocytes, myelocytes and metamyelocytes) > 1% indicates that a LEFT SHIFT is Present. MCH (RBC) [Entitic mass] 28.1 pg 27.0-32.0 [facility] Nucleated RBC/100 WBC (Bld) [Ratio] 0.5 % 0-5 [facility] MCHC Auto (RBC) [Mass/Vol]Or dered By: Ryan Tinoco on 01-26-2023 MCHC (RBC) [Mass/Vol] 31.7 g/dL 32-36 [facility] No Panel InformationOrdered By: Ryan Tinoco on 01-26-2023 Estimated Creatinine Clearance Calc 48.41 ml/min [facility] Estimated GFR (MDRD) Amer 59 mL/min >60 [facility] Comment on above: GFR Calc Estimated GFR (MDRD) Non-Af Amer 49 mL/min >60 [facility] Comment on above: Non- GFR Calc 28.1 pg 27.0-32.0 [facility] 15.9 % 11.6-14.6 [facility] 50.6 fl 35.1-43.9 [facility] 2.200 % 0.0-0.9 [facility] 0.5 % 0-5 [facility] 49 mL/min >60 [facility] 59 mL/min >60 [facility] 48.41 ml/min [facility] 18.8 RATIO 10-20 [facility] 23.0 mmol/L 21.0-32.0 [facility] No Panel InformationOrdered By: Karen Aly on 01-26-2023 1.8 mg/dL 1.6-2.6 [facility] Platelets bldOrdered By: Jaziel Tinoco on 01-26-2023 Platelets (Bld) [#/Vol] 217 10*3/uL 150-450 [facility] Serum or plasma calcium antoine urement (mass/volume)Ordered By: Ryan Tinoco on 01-26-2023 Calcium [Mass/Vol] 8.5 mg/dL 8.5-10.1 [facility] Serum or plasma creatinine m easurement (mass/volume)Ordered By: Ryan Tinoco on 01-26-2023 Creatinine [Mass/Vol] 1.49 mg/dL 0.70-1.30 [facility] Comment on above: The validity of the calculated GFR & GFRAA in patients over 70 years has not been determined. Clinical correlation is essential. Serum or plasma urea nitroge n measurement (mass/volume)Ordered By: Ryan Tinoco on 01-26-2023 Urea nitrogen [Mass/Vol] 28 mg/dL 01-29 [facility] Thin prep Papanicolaou smear with manual screeningOrdered By: Ryan Tinoco on 01-26-2023 Thin prep Papanicolaou smear with manual screening 6 11-26 [facility] INR in Blood by Coagulation assayOrdered By: Ryan Tinoco on 01-25-2023 INR Coag (Bld) [Relative time] 1.6 {INR} [facility] - CoagulationOrde red By: Ryan Tinoco on 01-25-2023 PT Coag (PPP) [Time] 19.1 s 11.7-14.9 [facility] No Panel InformationOrdered By: Ryan Tinoco on 01-25-2023 19.1 SECONDS 11.7-14.9 [facility] Albumin Elph [Mass/Vol]Order ed By: Liu Hackett on 01-22-2023 Albumin [Mass/Vol] 2.5 g/dL 2.9-4.4 [facility] Aldolase ser/plasOrdered By: Liu Hackett on 01-22-2023 Aldolase [Catalytic activity/Vol] 1.5 mU/mL 3.3-10.3 [facility] Comment on above: Performed at: [address] [id number] Director: Ernie Jacob PhD, Phone: [phone] at: [facility] [address] [id number] Director: Lindsay Kearns MD, Phone: [phone] Atypical perinuclear antineu trophil cytoplasmic antibodies measurementOrdered By: Liu Hackett on 01-22-2023 Neutrophil cytoplasmic Ab.perinuclear.atypical IF (S) [Titer] <1:20 titer Neg:<1:20 [facility] Comment on above: The atypical pANCA p attern has been observed in asignificant percentage of patients with ulcerative colitis,primary sclerosing cholangitis and autoimmune hepatitis. Basophil percentageOrdered B y: Liu Hackett on 01-22-2023 Basophil percentage < 0.2 AI 0.0-0.9 [facility] Basophil percentage 3.4 mmol/L 0.4-2.0 [facility] Basophil percentage 136 U/L 87-241 [facility] Lactate [Moles/Vol] 3.4 mmol/L 0.4-2.0 [facility] Comment on above: Critical Result(s) C alled at: 12:30:42 01/22/2023 by: Aruna Morales. Inocencio Martin RN (ICU). Results read back by same. LDH [Catalytic activity/Vol] 136 U/L 87-241 [facility] Blood polychromasia detectio n by light microscopyOrdered By: Jesus Burnham on 01-22-2023 Polychromasia LM Ql (Bld) 1+ [facility] Interpretation of serum or p lasma protein pattern by immunofixation (narrative resultOrdered By: Liu Hackett on 01-22-2023 Protein Fractions Immunofixation Ori [Interp] See comment [facility] Comment on above: NOT OBSERVED Laboratory - Chemistry and C hemistry - challengeOrdered By: Liu Hackett on 01-22-2023 CK [Catalytic activity/Vol] 31 U/L 39-308 [facility] Laboratory - Hematology and Cell countsOrdered By: Jesus Burnham on 01-22-2023 Anisocytosis Ql (Bld) 1+ [facility] No Panel InformationOrdered By: Liu Hackett on 01-22-2023 Addendum Document Comment . [facility] Comment on above: Protein electrophore sis scan will follow via computer,mail, or sports nutritionist delivery. Centromere B Antibody <0.2 AI 0.0-0.9 [facility] Immunoglobulin E 399 IU/mL 6-495 [facility] Immunoglobulin G4 8 mg/dL 2-96 [facility] CRYSTAL SLICER Antibody <0.2 AI 0.0-0.9 [facility] 31 U/L 39-308 [facility] 8 mg/dL 2-96 [facility] 399 IU/mL 6-495 [facility] <0.2 AI 0.0-0.9 [facility] No Panel InformationOrdered By: Jesus Burnham on 01-22-2023 1+ [facility] Review by pathologistOrdered By: Jesus Burnham on 01-22-2023 Pathologist review Ori (Unsp spec) [Interp] Reviewed [facility] Comment on above: Previous reported re sult: Corie sr Edited by: KEN on 01/23/23:1008Neutrophilic leukocytosis with left shift.Normocytic anemia.Clinical correlation necessary.Evaristo Dela Cruz M.D. 01/23/23 AMENDED REPORT 01/23/23 1008 PATH REV previously reported as: Corie sr Serum DNA double strand anti body assay (units/volume)Ordered By: Liu Hackett on 01-22-2023 DNA double strand Ab Qn (S) [IU]/mL 0-9 [facility] Comment on above: Negative <5 Equivoca l 5 - 9 Positive >9 Serum IgG subclass 1 measure ment (mass/volume)Ordered By: Liu Hackett on 01-22-2023 IgG subclass 1 (S) [Mass/Vol] 237 mg/dL 248-810 [facility] Serum IgG subclass 2 measure ment (mass/volume)Ordered By: Liu Hackett on 01-22-2023 IgG subclass 2 (S) [Mass/Vol] 115 mg/dL 130-555 [facility] Serum IgG subclass 3 measure ment (mass/volume)Ordered By: Liu Hackett on 01-22-2023 IgG subclass 3 (S) [Mass/Vol] 20 mg/dL 15-102 [facility] Serum Kelsey-1 antibody assay (u nits/volume)Ordered By: Liu Hackett on 01-22-2023 Kelsey-1 extractable nuclear Ab Qn (S) <0.2 AI 0.0-0.9 [facility] Serum Scl-70 extractable nuc lear antibody assay (units/volume)Ordered By: Liu Hackett on 01-22-2023 SCL-70 extractable nuclear Ab Qn (S) <0.2 AI 0.0-0.9 [facility] Serum Martinez extractable nucl ear antibody detectionOrdered By: Liu Hackett on 01-22-2023 Martinez extractable nuclear Ab Ql (S) <0.2 AI 0.0-0.9 [facility] Serum [id number] measu rement by electrophoresisOrdered By: Liu Hackett on 01-22-2023 Alpha 1 globulin Elph [Mass/Vol] 0.2 g/dL 0.0-0.4 [facility] Alpha 1 globulin Elph [Mass/Vol] 0.6 g/dL 0.4-1.0 [facility] Serum classic neutrophil cyt oplasmic antibody assay (units/volume)Ordered By: Liu Hackett on 01-22-2023 Neutrophil cytoplasmic Ab.classic Qn (S) <1:20 titer Neg:<1:20 [facility] Serum globulin measurement ( mass/volume)Ordered By: Liu Hackett on 01-22-2023 Globulin (S) [Mass/Vol] 1.9 g/dL 2.2-3.9 [facility] Serum or plasma IgA measurem ent (mass/volume)Ordered By: Liu Hackett on 01-22-2023 IgA [Mass/Vol] 194 mg/dL 61-437 [facility] Serum or plasma IgG measurem ent (mass/volume)Ordered By: Liu Hackett on 01-22-2023 IgG [Mass/Vol] 417 mg/dL 603-1613 [facility] IgG [Mass/Vol] Not Reportable [facility] Serum or plasma IgM measurem ent (mass/volume)Ordered By: Liu Hackett on 01-22-2023 IgM [Mass/Vol] 15 mg/dL 15-143 [facility] Comment on above: Result confirmed on concentration. Serum or plasma beta globuli n measurement by electrophoresis (mass/volume)Ordered By: Liu Hackett on 01-22-2023 Beta globulin Elph [Mass/Vol] 0.7 g/dL 0.7-1.3 [facility] Serum or plasma gamma globul in measurement by electrophoresis (mass/volume)Ordered By: Liu Hackett on 01-22-2023 Gamma globulin Elph [Mass/Vol] 0.3 g/dL 0.4-1.8 [facility] Serum or plasma immunoelectr ophoresis interpretation (nominal result)Ordered By: Liu Hackett on 01-22-2023 Interpretation IEP [Interp] Comment . [facility] Comment on above: No monoclonality det ected. Serum perinuclear neutrophil cytoplasmic antibody titer by immunofluorescenceOrdered By: Liu Hackett on 01-22-2023 Neutrophil cytoplasmic Ab.perinuclear IF (S) [Titer] <1:20 titer Neg:<1:20 [facility] Comment on above: The presence of posi tive fluorescence exhibiting P-ANCA orC-ANCA patterns alone is not specific for the diagnosis ofWegener's Granulomatosis (WG) or microscopic polyangiitis.Decisions about treatment should not be based solely onANCA IFA results. The [employer] ANCA [employer] Consensusrecommends follow up testing of positive sera with both TN-3 and MPO-ANCA enzyme immunoassays. As many as 5% serumsamples are positive only by EIA. Ref. AM J Clin Wvraad4630;111:507-513. Thin prep Papanicolaou smear with manual screeningOrdered By: Liu Hackett on 01-22-2023 Thin prep Papanicolaou smear with manual screening 1.4 0.7-1.7 [facility] Total protein bloodOrdered B y: Liu Hackett on 01-22-2023 Protein [Mass/Vol] 4.4 g/dL 6.0-8.5 [facility] Absolute lymphocyte countOrd ered By: Dandy Sauer on 01-21-2023 Lymphocytes Auto (Unsp spec) [#/Vol] 1.69 10*3/uL 0.83-4.51 [facility] Basophil percentageOrdered B y: Dandy Sauer on 01-21-2023 Basophil percentage 0-5 SEEN /hpf 0-5 [facility] Basophil percentage 5.4 g/dL 6.4-8.2 [facility] Basophil percentage 0.30 mg/dL 0.20-1.00 [facility] Basophils/100 WBC (Bld) 0.3 % 0-1 [facility] Bilirubin [Mass/Vol] 0.30 mg/dL 0.20-1.00 [facility] Comment on above: For patients on eltr ombopag therapy, use of Dimension [place] TBIL is not recommended. Chloride [Moles/Vol] 109 mmol/L 98-107 [facility] Eosinophils/100 WBC (Bld) 0.0 % 0-5 [facility] Glucose [Mass/Vol] 248 mg/dL 74-106 [facility] Comment on above: Glucose result great er than or equal to 200 mg/dLsuggests DIABETES MELLITUS per A.D.A. criteria. Lactate [Moles/Vol] 7.9 mmol/L 0.4-2.0 [facility] Comment on above: Critical Result(s) C alled at: 09:48:37 01/21/2023 by: Aruna Tadeo. Results read back by same. Neutrophils (Bld) [#/Vol] 19.7 10*3/uL 2.0-7.7 [facility] Neutrophils/100 WBC (Bld) 87.8 % 47-70 [facility] Potassium [Moles/Vol] 5.2 mmol/L 3.5-5.1 [facility] Protein [Mass/Vol] 5.4 g/dL 6.4-8.2 [facility] Sodium [Moles/Vol] 138 mmol/L 136-145 [facility] WBC (Bld) [#/Vol] 22.4 10*3/uL 4.4-11.0 [facility] Bilirubin Test strip Ql (U)O rdered By: Dandy Sauer on 01-21-2023 Bilirubin Ql (U) 1 mg/dL Negative [facility] Comment on above: COLOR OF URINE MAY A FFECT DIPSTICK RESULTS. Blood erythrocytes count (nu mber/volume)Ordered By: Dandy Sauer on 01-21-2023 RBC (Bld) [#/Vol] 3.96 10*6/uL 4.6-6.2 [facility] Blood hemoglobin measurement (mass/volume)Ordered By: Dandy Sauer on 01-21-2023 Hemoglobin (Bld) [Mass/Vol] 10.7 g/dL 13.0-16. 5 [facility] Blood lymphocytes/100 leukoc ytesOrdered By: Dandy Sauer on 01-21-2023 Lymphocytes/100 WBC (Bld) 7.5 % 19-41 [facility] Blood monocytes/100 leukocyt esOrdered By: Dandy Sauer on 01-21-2023 Monocytes/100 WBC (Bld) 2.4 % 0-10 [facility] Blood platelet mean volumeOr dered By: Dandy Sauer on 01-21-2023 Platelet mean volume (Bld) [Entitic vol] 10.7 fL 6.2-12.0 [facility] Determination of erythrocyte mean corpuscular volume (MCV)Ordered By: Dandy Sauer on 01-21-2023 MCV (RBC) [Entitic vol] 86.6 fL 80-94 [facility] Hematocrit Auto (Bld) [Volum e fraction]Ordered By: Dandy Sauer on 01-21-2023 Hematocrit (Bld) [Volume fraction] 34.3 % 40-54 [facility] INR in Blood by Coagulation assayOrdered By: Dandy Sauer on 07-10-2023 INR Coag (Bld) [Relative time] 4.2 {INR} [facility] Comment on above: CRITICAL VALUE VERIF IED. CALLED TO EVANS MARI (ER)01/21/23 1011 Zachary Gabriel.RESULTS READ BACK BY SAME. Ketones Test strip Ql (U)Ord ered By: Dandy Sauer on 01-21-2023 Ketones Ql (U) 15 mg/dl Negative [facility] Laboratory - Chemistry and C hemistry - challengeOrdered By: Dandy Sauer on 01-21-2023 ALP [Catalytic activity/Vol] 76 U/L 45-117 [facility] ALT [Catalytic activity/Vol] 25 U/L 16-61 [facility] CO2 [Moles/Vol] 12.0 mmol/L 21.0-32.0 [facility] Globulin (S) [Mass/Vol] 2.7 g/dL 2.2-4.2 [facility] Urea nitrogen/Creatinine [Mass ratio] 62.8 mg/mg 10-20 [facility] - CoagulationOrde red By: Dandy Sauer on 01-21-2023 PT Coag (PPP) [Time] 41.4 s 11.7-14.9 [facility] Laboratory - Hematology and Cell countsOrdered By: Dandy Sauer on 01-21-2023 Erythrocyte distribution width (RBC) [Entitic vol] 46.6 fL 35.1-43.9 [facility] Erythrocyte distribution width (RBC) [Ratio] 14.7 % 11.6-14.6 [facility] Immature granulocytes/100 WBC (Bld) 2.000 % 0.0-0.9 [facility] Comment on above: IG% - Immature Granu locytes (promyelocytes, myelocytes and metamyelocytes) > 1% indicates that a LEFT SHIFT is Present. MCH (RBC) [Entitic mass] 27.0 pg 27.0-32.0 [facility] Nucleated RBC/100 WBC (Bld) [Ratio] 0 % 0-5 [facility] Lower GI hemoglobin IA Ql (S tl)Ordered By: Dandy Sauer on 01-21-2023 Stool gastrointestinal hemoglobin detection by immunologic method Positive [facility] Stool Occult Blood (KLAUS) Positive [facility] Stool gastrointestinal hemoglobin detection by immunologic method Positive [facility] MCHC Auto (RBC) [Mass/Vol]Or dered By: Dandy Sauer on 01-21-2023 MCHC (RBC) [Mass/Vol] 31.2 g/dL 32-36 [facility] Mucus LM Ql (Urine sed)Order ed By: Dandy Sauer on 01-21-2023 Mucus Ql (Urine sed) 0 SEEN /hpf [facility] Nitrite Test strip Ql (U)Ord ered By: Dandy Sauer on 01-21-2023 Nitrite Ql (U) Negative Negative [facility] No Panel InformationOrdered By: Dandy Sauer on 01-21-2023 Estimated Creatinine Clearance Calc 36.25 ml/min [facility] Estimated GFR (MDRD) Amer 42 mL/min >60 [facility] Comment on above: GFR Calc Estimated GFR (MDRD) Non-Af Amer 35 mL/min >60 [facility] Comment on above: Non- GFR Calc Troponin I High Sensitivity 23 pg/mL 3.0-78.0 [facility] Comment on above: Please Note: New Thania t Units and Gender Specific Reference Ranges. For more information see Policy Stat Procedure [place] High Sensitivity Troponin (TNIH) and attachments. 23 pg/mL 3.0-78.0 [facility] 76 U/L 45-117 [facility] 25 U/L 16-61 [facility] Platelets bldOrdered By: Renetta Sauer on 01-21-2023 Platelets (Bld) [#/Vol] 389 10*3/uL 150-450 [facility] Protein Test strip Ql (U)Ord ered By: Dandy Sauer on 01-21-2023 Protein Ql (U) 15 mg/dl Negative [facility] Serum or plasma albumin antoine urement (mass/volume)Ordered By: Dandy Sauer on 01-21-2023 Albumin [Mass/Vol] 2.7 g/dL 3.2-5.0 [facility] Serum or plasma albumin/glob ulin mass ratioOrdered By: Dandy Sauer on 01-21-2023 Albumin/Globulin [Mass ratio] 1.0 {ratio} 0.9-2.4 [facility] Serum or plasma calcium antoine urement (mass/volume)Ordered By: Dandy Sauer on 01-21-2023 Calcium [Mass/Vol] 9.7 mg/dL 8.5-10.1 [facility] Serum or plasma creatinine m easurement (mass/volume)Ordered By: Dandy Sauer on 01-21-2023 Creatinine [Mass/Vol] 1.99 mg/dL 0.70-1.30 [facility] Comment on above: The validity of the calculated GFR & GFRAA in patients over 70 years has not been determined. Clinical correlation is essential. Serum or plasma urea nitroge n measurement (mass/volume)Ordered By: Dandy Sauer on 01-21-2023 Urea nitrogen [Mass/Vol] 125 mg/dL 7-18 [facility] Comment on above: Critical Result(s) C alled at: 09:53:00 01/21/2023 by: Aruna Tadeo. Results read back by same. Squamous epithelial cells de tection in urine sediment by light microscopyOrdered By: Dandy Sauer on 01-21-2023 Epithelial cells.squamous LM Ql (Urine sed) 0-5 SEEN /hpf 0-5 [facility] Thin prep Papanicolaou smear with manual screeningOrdered By: Dandy Suaer on 01-21-2023 Thin prep Papanicolaou smear with manual screening 9 U/L 15-37 [facility] Thin prep Papanicolaou smear with manual screening 17 5-15 [facility] Urine blood detectionOrdered By: Dandy Sauer on 01-21-2023 RBC Ql (U) Negative Negative [facility] RBC Ql (U) 0 SEEN /hpf 0-5 [facility] Urine clarityOrdered By: Renetta Sauer on 01-21-2023 Clarity (U) Clear Clear [facility] Urine color determinationOrd ered By: Dandy Sauer on 01-21-2023 Color (U) Yellow Yellow [facility] Urine glucose detectionOrder ed By: Dandy Sauer on 01-21-2023 Glucose Ql (U) 100 mg/dl Normal [facility] Urine leukocyte esterase det ection by dipstickOrdered By: Dandy Sauer on 01-21-2023 Leukocyte esterase Test strip Ql (U) Negative Negative [facility] Urine pHOrdered By: Dandy Sauer on 01-21-2023 pH (U) 5.0 [pH] 5.0 - 8.0 [facility] Urine sediment bacteria coun t by microscopy (number/high power field)Ordered By: Dandy Sauer on 01-21-2023 Bacteria LM.HPF (Urine sed) [#/Area] 0 /[HPF] None Seen [facility] Urine specific gravity measu rementOrdered By: Dandy Sauer on 01-21-2023 Specific gravity (U) [Rel density] 1.020 1.002-1.03 0 [facility] Urobilinogen Auto test strip Ql (U)Ordered By: Dandy Sauer on 01-21-2023 Urobilinogen Ql (U) Normal mg/dl Normal [facility] Glucose Glucometer (dC) [M ass/Vol]Ordered By: Gabriel Giraldo on 01-08-2023 Glucose [Mass/Vol] 201 mg/dL 74-106 [facility] Comment on above: MANAGEMENT OF PATIEN T CARE PER NURSING PROTOCOL Absolute lymphocyte countOrd ered By: Karen Aly on 01-07-2023 Lymphocytes Auto (Unsp spec) [#/Vol] 1.83 10*3/uL 0.83-4.51 [facility] Basophil percentageOrdered B y: Karen Aly on 01-07-2023 Basophil percentage 121 mg/dL 74-106 [facility] Basophil percentage 6.0 g/dL 6.4-8.2 [facility] Basophil percentage 0.70 mg/dL 0.20-1.00 [facility] Basophil percentage 138 mmol/L 136-145 [facility] Basophil percentage 4.1 mmol/L 3.5-5.1 [facility] Basophil percentage 106 mmol/L 98-107 [facility] Basophils (Bld) [#/Vol] 9.3 10*3/uL 4.4-11.0 [facility] Basophils (Bld) [#/Vol] 6.4 10*3/uL 2.0-7.7 [facility] Basophils/100 WBC (Bld) 0.6 % 0-1 [facility] Basophils/100 WBC (Bld) 69.0 % 47-70 [facility] Basophils/100 WBC (Bld) 2.4 % 0-5 [facility] Bilirubin [Mass/Vol] 0.70 mg/dL 0.20-1.00 [facility] Comment on above: For patients on eltr ombopag therapy, use of Dimension [place] TBIL is not recommended. Chloride [Moles/Vol] 106 mmol/L 98-107 [facility] Eosinophils/100 WBC (Bld) 2.4 % 0-5 [facility] Glucose [Mass/Vol] 121 mg/dL 74-106 [facility] Comment on above: Fasting Glucose resu lt from 100 to 125 mg/dL suggests IMPAIRED HOMEOSTASIS per A.D.A. criteria. Neutrophils (Bld) [#/Vol] 6.4 10*3/uL 2.0-7.7 [facility] Neutrophils/100 WBC (Bld) 69.0 % 47-70 [facility] Potassium [Moles/Vol] 4.1 mmol/L 3.5-5.1 [facility] Protein [Mass/Vol] 6.0 g/dL 6.4-8.2 [facility] Sodium [Moles/Vol] 138 mmol/L 136-145 [facility] WBC (Bld) [#/Vol] 9.3 10*3/uL 4.4-11.0 [facility] Blood erythrocytes count (nu mber/volume)Ordered By: Karen Aly on 01-07-2023 RBC (Bld) [#/Vol] 4.90 10*6/uL 4.6-6.2 [facility] Blood hemoglobin measurement (mass/volume)Ordered By: Karen Aly on 01-07-2023 Hemoglobin (Bld) [Mass/Vol] 13.1 g/dL 13.0-16. 5 [facility] Blood lymphocytes/100 leukoc ytesOrdered By: Jermain on 01-07-2023 Lymphocytes/100 WBC (Bld) 19.8 % 19-41 [facility] Blood monocytes/100 leukocyt esOrdered By: Jermain on 01-07-2023 Monocytes/100 WBC (Bld) 7.2 % 0-10 [facility] Blood platelet mean volumeOr dered By: Karen Aly on 01-07-2023 Platelet mean volume (Bld) [Entitic vol] 9.1 fL 6.2-12.0 [facility] Determination of erythrocyte mean corpuscular volume (MCV)Ordered By: Karen Aly on 01-07-2023 MCV (RBC) [Entitic vol] 83.5 fL 80-94 [facility] Hematocrit Auto (Bld) [Volum e fraction]Ordered By: Karen Jermain on 01-07-2023 Hematocrit (Bld) [Volume fraction] 40.9 % 40-54 [facility] INR in Blood by Coagulation assayOrdered By: Karen Aly on 01-07-2023 INR Coag (Bld) [Relative time] 2.2 {INR} [facility] Laboratory - Chemistry and C hemistry - challengeOrdered By: Karen Jermain on 01-07-2023 ALP [Catalytic activity/Vol] 90 U/L 45-117 [facility] ALT [Catalytic activity/Vol] 18 U/L 16-61 [facility] CO2 [Moles/Vol] 24.0 mmol/L 21.0-32.0 [facility] Globulin (S) [Mass/Vol] 3.1 g/dL 2.2-4.2 [facility] Urea nitrogen/Creatinine [Mass ratio] 23.0 mg/mg 10-20 [facility] Laboratory - CoagulationOrde red By: Karen Aly on 01-07-2023 PT Coag (PPP) [Time] 24.8 s 11.7-14.9 [facility] Laboratory - Hematology and Cell countsOrdered By: Karen Jermain on 01-07-2023 Erythrocyte distribution width (RBC) [Entitic vol] 43.7 fL 35.1-43.9 [facility] Erythrocyte distribution width (RBC) [Ratio] 14.5 % 11.6-14.6 [facility] Immature granulocytes/100 WBC (Bld) 1.000 % 0.0-0.9 [facility] Comment on above: IG% - Immature Granu locytes (promyelocytes, myelocytes and metamyelocytes) > 1% indicates that a LEFT SHIFT is Present. MCH (RBC) [Entitic mass] 26.7 pg 27.0-32.0 [facility] Nucleated RBC/100 WBC (Bld) [Ratio] 0 % 0-5 [facility] MCHC Auto (RBC) [Mass/Vol]Or dered By: Karen Aly on 01-07-2023 MCHC (RBC) [Mass/Vol] 32.0 g/dL 32-36 [facility] No Panel InformationOrdered By: Karen Aly on 01-07-2023 Estimated Creatinine Clearance Calc 63.83 ml/min [facility] Estimated GFR (MDRD) Amer 81 mL/min >60 [facility] Comment on above: GFR Calc Estimated GFR (MDRD) Non-Af Amer 67 mL/min >60 [facility] Comment on above: Non- GFR Calc 26.7 pg 27.0-32.0 [facility] 14.5 % 11.6-14.6 [facility] 43.7 fl 35.1-43.9 [facility] 1.000 % 0.0-0.9 [facility] 0 % 0-5 [facility] 24.8 SECONDS 11.7-14.9 [facility] 67 mL/min >60 [facility] 81 mL/min >60 [facility] 63.83 ml/min [facility] 23.0 RATIO 10-20 [facility] 3.1 g/dL 2.2-4.2 [facility] 90 U/L 45-117 [facility] 18 U/L 16-61 [facility] 24.0 mmol/L 21.0-32.0 [facility] Platelets bldOrdered By: Dede Aly on 01-07-2023 Platelets (Bld) [#/Vol] 216 10*3/uL 150-450 [facility] Serum or plasma albumin antoine urement (mass/volume)Ordered By: Karen Aly on 01-07-2023 Albumin [Mass/Vol] 2.9 g/dL 3.2-5.0 [facility] Serum or plasma albumin/glob ulin mass ratioOrdered By: Karen Aly on 01-07-2023 Albumin/Globulin [Mass ratio] 0.9 {ratio} 0.9-2.4 [facility] Serum or plasma calcium antoine urement (mass/volume)Ordered By: Karen Aly on 01-07-2023 Calcium [Mass/Vol] 8.8 mg/dL 8.5-10.1 [facility] Serum or plasma creatinine m easurement (mass/volume)Ordered By: Karen Aly on 01-07-2023 Creatinine [Mass/Vol] 1.13 mg/dL 0.70-1.30 [facility] Comment on above: The validity of the calculated GFR & GFRAA in patients over 70 years has not been determined. Clinical correlation is essential. Serum or plasma urea nitroge n measurement (mass/volume)Ordered By: Karen Aly on 01-07-2023 Urea nitrogen [Mass/Vol] 26 mg/dL 7-18 [facility] Thin prep Papanicolaou smear with manual screeningOrdered By: Karen Aly on 01-07-2023 Thin prep Papanicolaou smear with manual screening 13 U/L 15-37 [facility] Thin prep Papanicolaou smear with manual screening 8 5-15 [facility] Basophil percentageOrdered B y: Karen Aly on 01-05-2023 Basophil percentage 87 mg/dL <200 [facility] Basophil percentage 116 mg/dL <199 [facility] Cholesterol [Mass/Vol] 87 mg/dL <200 [facility] Comment on above: <200 mg/dL Desirable 200-240 mg/dL Borderline >240 mg/dL High Risk Triglyceride [Mass/Vol] 116 mg/dL <199 [facility] Comment on above: The drugs N-Acetylcy steine and Metamizole may falsely depress this assay.Serum Triglycerides Reference Interval Normal <150 mg/dL Borderline high 150 - 199 mg/dL High 200 - 499 mg/dL Very High > or = 500 mg/dL No Panel InformationOrdered By: Karen Aly on 01-05-2023 Thyroid Stimulating Hormone (TSH) 1.13 uIU/mL 0.358-3.74 [facility] 1.13 uIU/mL 0.358-3.74 [facility] Serum or plasma cholesterol in HDL measurement (mass/volume)Ordered By: Karen Aly on 01-05-2023 Cholesterol in HDL [Mass/Vol] 37 mg/dL >40 [facility] Comment on above: The drugs N-Acetylcy steine and Metamizole may falsely depress this assay. Reference Range HDL <40 mg/dL Low HDL Cholesterol HDL >or= 60 mg/dL High HDL Cholesterol Serum or plasma cholesterol in VLDL measurement (mass/volume)Ordered By: Karen Aly on 01-05-2023 Cholesterol in VLDL [Mass/Vol] 23 mg/dL 5-40 [facility] Serum or plasma low density lipoprotein (LDL) cholesterol measurement (mass/volume)Ordered By: Karen Aly on 01-05-2023 Cholesterol in LDL [Mass/Vol] 27 mg/dL 0-130 [facility] Whole blood hemoglobin A1c/t otal hemoglobin ratio (mass fraction)Ordered By: Karen Aly on 01-05-2023 HbA1c (Bld) [Mass fraction] 5.8 % 3.8-5.6 [facility] Comment on above: Normal < 5.7 % Predi abetic 5.7 - 6.4 % Diabetic >or= 6.5 % Please note range changes. Absolute lymphocyte countOrd ered By: Dr. Roberts on 01-04-2023 Lymphocytes Auto (Unsp spec) [#/Vol] 1.31 10*3/uL 0.83-4.51 [facility] Assessment of wrist artery p atency prior to arterial punctureOrdered By: Dr. Aly on 01-04-2023 Arterial patency Wrist artery --pre arterial puncture N/A [facility] Bacteria identified Cx Nom ( U)Ordered By: Maggy Roberts on 01-04-2023 Culture, urine Positive [facility] Base excessOrdered By: Dr. Freddy pettit on 01-04-2023 Base excess Calc (BldV) [Moles/Vol] 0 mmol/L -2-2 [facility] Basophil percentageOrdered B y: Dr. Aly on 01-04-2023 Basophil percentage 23.7 mmol/L 22-26 [facility] Basophils/100 WBC (Bld) 96 % 95-99 [facility] Ammonia (P) [Moles/Vol] 17.0 umol/L - [facility] Basophil percentageOrdered B y: Karen Aly on 01-04-2023 Basophil percentage 17.0 umol/L - [facility] Basophil percentageOrdered B y: Dr. Roberts on 01-04-2023 Basophil percentage 0 SEEN /hpf 0-5 [facility] Basophils/100 WBC (Bld) 0.4 % 0-1 [facility] Bilirubin [Mass/Vol] 0.70 mg/dL 0.20-1.00 [facility] Comment on above: For patients on eltr ombopag therapy, use of Dimension [place] TBIL is not recommended. Chloride [Moles/Vol] 105 mmol/L 98-107 [facility] Eosinophils/100 WBC (Bld) 1.7 % 0-5 [facility] Glucose [Mass/Vol] 133 mg/dL 74-106 [facility] Comment on above: Fasting Glucose resu lt greater than or equal to 126 mg/dL suggests DIABETES MELLITUS per A.D.A. criteria. Neutrophils (Bld) [#/Vol] 8.0 10*3/uL 2.0-7.7 [facility] Neutrophils/100 WBC (Bld) 78.3 % 47-70 [facility] Potassium [Moles/Vol] 4.2 mmol/L 3.5-5.1 [facility] Protein [Mass/Vol] 6.3 g/dL 6.4-8.2 [facility] Sodium [Moles/Vol] 139 mmol/L 136-145 [facility] WBC (Bld) [#/Vol] 10.2 10*3/uL 4.4-11.0 [facility] Bilirubin Test strip Ql (U)O rdered By: Dr. Roberts on 01-04-2023 Bilirubin Ql (U) Negative Negative [facility] Blood erythrocytes count (nu mber/volume)Ordered By: Dr. Roberts on 01-04-2023 RBC (Bld) [#/Vol] 5.09 10*6/uL 4.6-6.2 [facility] Blood hemoglobin measurement (mass/volume)Ordered By: Dr. Roberts on 01-04-2023 Hemoglobin (Bld) [Mass/Vol] 13.5 g/dL 13.0-16. 5 [facility] Blood lymphocytes/100 leukoc ytesOrdered By: Dr. Roberts on 01-04-2023 Lymphocytes/100 WBC (Bld) 12.8 % 19-41 [facility] Blood monocytes/100 leukocyt esOrdered By: Dr. Roberts on 01-04-2023 Monocytes/100 WBC (Bld) 5.9 % 0-10 [facility] Blood platelet mean volumeOr dered By: Dr. Roberts on 01-04-2023 Platelet mean volume (Bld) [Entitic vol] 8.7 fL 6.2-12.0 [facility] CO2 (BldA) [Partial pressure ]Ordered By: Dr. Aly on 01-04-2023 CO2 (Bld) [Partial pressure] 33.9 mm[Hg] 35-45 [facility] Culture, urineOrdered By: Eddie Roberts on 01-04-2023 Bacteria identified Cx Nom (U) Positive [facility] Determination of erythrocyte mean corpuscular volume (MCV)Ordered By: Dr. Roberts on 01-04-2023 MCV (RBC) [Entitic vol] 82.1 fL 80-94 [facility] Direct bilirubinOrdered By: Dr. Roberts on 01-04-2023 Bilirubin.direct [Mass/Vol] 0.20 mg/dL 0.00-0.3 0 [facility] Hematocrit Auto (Bld) [Volum e fraction]Ordered By: Dr. Roberts on 01-04-2023 Hematocrit (Bld) [Volume fraction] 41.8 % 40-54 [facility] INR in Blood by Coagulation assayOrdered By: Dr. Roberts on 01-04-2023 INR Coag (Bld) [Relative time] 3.1 {INR} [facility] Ketones Test strip Ql (U)Ord ered By: Dr. Roberts on 01-04-2023 Ketones Ql (U) Negative Negative [facility] Laboratory - Chemistry and C hemistry - challengeOrdered By: Karen Aly on 01-04-2023 Cobalamin (Vitamin B12) [Mass/Vol] 260 pg/mL 211-911 [facility] Laboratory - Chemistry and C hemistry - challengeOrdered By: Dr. Aly on 01-04-2023 Magnesium [Mass/Vol] 1.8 mg/dL 1.6-2.6 [facility] Laboratory - Chemistry and C hemistry - challengeOrdered By: Dr. Roberts on 01-04-2023 ALP [Catalytic activity/Vol] 102 U/L 45-117 [facility] ALT [Catalytic activity/Vol] 18 U/L 16-61 [facility] CO2 [Moles/Vol] 25.0 mmol/L 21.0-32.0 [facility] Globulin (S) [Mass/Vol] 3.2 g/dL 2.2-4.2 [facility] Urea nitrogen/Creatinine [Mass ratio] 18.7 mg/mg 10-20 [facility] Laboratory - CoagulationOrde red By: Dr. Roberts on 01-04-2023 PT Coag (PPP) [Time] 32.6 s 11.7-14.9 [facility] Laboratory - Hematology and Cell countsOrdered By: Dr. Roberts on 01-04-2023 Erythrocyte distribution width (RBC) [Entitic vol] 42.3 fL 35.1-43.9 [facility] Erythrocyte distribution width (RBC) [Ratio] 14.2 % 11.6-14.6 [facility] Immature granulocytes/100 WBC (Bld) 0.900 % 0.0-0.9 [facility] Comment on above: IG% - Immature Granu locytes (promyelocytes, myelocytes and metamyelocytes) > 1% indicates that a LEFT SHIFT is Present. MCH (RBC) [Entitic mass] 26.5 pg 27.0-32.0 [facility] Nucleated RBC/100 WBC (Bld) [Ratio] 0 % 0-5 [facility] Laboratory - Microbiology an d Antimicrobial susceptibilityOrdered By: Maggy Roberts on 01-04-2023 Bacteria identified Cx Nom (Bld) No growth in 5 days. [facility] MCHC Auto (RBC) [Mass/Vol]Or dered By: Dr. Roberts on 01-04-2023 MCHC (RBC) [Mass/Vol] 32.3 g/dL 32-36 [facility] Mucus LM Ql (Urine sed)Order ed By: Dr. Roberts on 01-04-2023 Mucus Ql (Urine sed) 0 SEEN /hpf [facility] Nitrite Test strip Ql (U)Ord ered By: Dr. Roberts on 01-04-2023 Nitrite Ql (U) Negative Negative [facility] No Panel InformationOrdered By: Dr. Aly on 01-04-2023 Blood Gas Oxygen Percent 21 [facility] Blood Gas Sample Site R Brach [facility] Blood Gas Specimen Type ART [facility] Blood Gas Total CO2 25 mmol/L [facility] Oxygen Delivery Device Room Air [facility] No Panel InformationOrdered By: Karen Aly on 01-04-2023 ART [facility] R Brach [facility] Room Air [facility] 21 [facility] 25 mmol/L [facility] 1.8 mg/dL 1.6-2.6 [facility] 260 pg/mL 211-911 [facility] No Panel InformationOrdered By: Maggy Roberts on 01-04-2023 [facility] 3.0-78.0 [facility] No Panel InformationOrdered By: Dr. Roberts on 01-04-2023 Estimated Creatinine Clearance Calc 58.64 ml/min [facility] Estimated GFR (MDRD) Amer 74 mL/min >60 [facility] Comment on above: GFR Calc Estimated GFR (MDRD) Non-Af Amer 61 mL/min >60 [facility] Comment on above: Non- GFR Calc Troponin I High Sensitivity 7 pg/mL 3.0-78.0 [facility] Comment on above: Please Note: New Thania t Units and Gender Specific Reference Ranges. For more information see Policy Stat Procedure [place] High Sensitivity Troponin (TNIH) and attachments. Oxygen (BldA) [Partial press ure]Ordered By: Dr. Aly on 01-04-2023 Oxygen (Bld) [Partial pressure] 78 mmHG 75-100 [facility] Platelets bldOrdered By: Dr. Roberts on 01-04-2023 Platelets (Bld) [#/Vol] 228 10*3/uL 150-450 [facility] Protein Test strip Ql (U)Ord ered By: Dr. Roberts on 01-04-2023 Protein Ql (U) 15 mg/dl Negative [facility] Serum Treponema species anti body detectionOrdered By: Karen Aly on 01-04-2023 Treponema sp Ab Ql (S) Non-Reactive [facility] Serum or plasma albumin antoine urement (mass/volume)Ordered By: Dr. Roberts on 01-04-2023 Albumin [Mass/Vol] 3.1 g/dL 3.2-5.0 [facility] Serum or plasma calcium antoine urement (mass/volume)Ordered By: Dr. Roberts on 01-04-2023 Calcium [Mass/Vol] 8.6 mg/dL 8.5-10.1 [facility] Serum or plasma creatinine m easurement (mass/volume)Ordered By: Dr. Roberts on 01-04-2023 Creatinine [Mass/Vol] 1.23 mg/dL 0.70-1.30 [facility] Comment on above: The validity of the calculated GFR & GFRAA in patients over 70 years has not been determined. Clinical correlation is essential. Serum or plasma folate measu rement (mass/volume)Ordered By: Karen Aly on 01-04-2023 Folate [Mass/Vol] 4.40 ng/mL 3.1-55.4 [facility] Serum or plasma urea nitroge n measurement (mass/volume)Ordered By: Dr. Roberts on 01-04-2023 Urea nitrogen [Mass/Vol] 23 mg/dL 7-18 [facility] Serum procalcitonin measurem entOrdered By: Karen Aly on 01-04-2023 Procalcitonin [Mass/Vol] ng/mL 0.00-0.09 [facility] Comment on above: A procalcitonin (PCT [...] Ql (Urine sed) 0-5 SEEN /hpf 0-5 [facility] Thin prep Papanicolaou smear with manual screeningOrdered By: Dr. Roberts on 01-04-2023 Thin prep Papanicolaou smear with manual screening 13 U/L 15-37 [facility] Thin prep Papanicolaou smear with manual screening 9 5-15 [facility] Urine blood detectionOrdered By: Dr. Roberts on 01-04-2023 RBC Ql (U) 10 /ul Negative [facility] RBC Ql (U) 0-5 SEEN /hpf 0-5 [facility] Urine clarityOrdered By: Dr. Roberts on 01-04-2023 Clarity (U) Sl. Cloudy Clear [facility] Urine color determinationOrd ered By: Dr. Roberts on 01-04-2023 Color (U) Yellow Yellow [facility] Urine glucose detectionOrder ed By: Dr. Roberts on 01-04-2023 Glucose Ql (U) 100 mg/dl Normal [facility] Urine leukocyte esterase det ection by dipstickOrdered By: Dr. Roberts on 01-04-2023 Leukocyte esterase Test strip Ql (U) Negative Negative [facility] Urine pHOrdered By: Dr. Yaya gallo on 01-04-2023 pH (U) 6.0 [pH] 5.0 - 8.0 [facility] Urine sediment bacteria coun t by microscopy (number/high power field)Ordered By: Dr. Roberts on 01-04-2023 Bacteria LM.HPF (Urine sed) [#/Area] 0 /[HPF] None Seen [facility] Urine specific gravity measu rementOrdered By: Dr. Roberts on 01-04-2023 Specific gravity (U) [Rel density] 1.020 1.002-1.03 0 [facility] Urobilinogen Auto test strip Ql (U)Ordered By: Dr. Roberts on 01-04-2023 Urobilinogen Ql (U) 4 mg/dl Normal [facility] pH measurementOrdered By: Dr Jose Aly on 01-04-2023 pH (Unsp spec) 7.45 [pH] 7.35-7.45 [facility] Absolute lymphocyte counton 07-11-2022 Lymphocytes Auto (Unsp spec) [#/Vol] 1.98 10*3/uL 0.83-4.51 [facility] Work Phone: Basophil percentageon 2021 Basophils/100 WBC (Bld) 0.6 % 0-1 [facility] Work Phone: Bilirubin [Mass/Vol] 0.90 mg/dL 0.20-1.00 [facility] Work Phone: Comment on above: For patients on eltr ombopag therapy, use of Dimension [place] TBIL is not recommended. Chloride [Moles/Vol] 105 mmol/L 98-107 [facility] Work Phone: Cholesterol [Mass/Vol] 102 mg/dL <200 [facility] Work Phone: Comment on above: <200 mg/dL Desirable 200-240 mg/dL Borderline >240 mg/dL High Risk Eosinophils/100 WBC (Bld) 4.1 % 0-5 [facility] Work Phone: Glucose [Mass/Vol] 103 mg/dL 74-106 [facility] Work Phone: Comment on above: Fasting Glucose resu lt from 100 to 125 mg/dL suggests IMPAIRED HOMEOSTASIS per A.D.A. criteria. Neutrophils (Bld) [#/Vol] 5.2 10*3/uL 2.0-7.7 [facility] Work Phone: Neutrophils/100 WBC (Bld) 63.5 % 47-70 [facility] Work Phone: Potassium [Moles/Vol] 3.5 mmol/L 3.5-5.1 [facility] Work Phone: Protein [Mass/Vol] 5.9 g/dL 6.4-8.2 [facility] Work Phone: Sodium [Moles/Vol] 138 mmol/L 136-145 [facility] Work Phone: Triglyceride [Mass/Vol] 124 mg/dL <199 [facility] Work Phone: Comment on above: The drugs N-Acetylcy steine and Metamizole may falsely depress this assay.Serum Triglycerides Reference Interval Normal <150 mg/dL Borderline high 150 - 199 mg/dL High 200 - 499 mg/dL Very High > or = 500 mg/dL WBC (Bld) [#/Vol] 8.2 10*3/uL 4.4-11.0 [facility] Work Phone: Blood erythrocytes count (nu mber/volume)on 07-11-2022 RBC (Bld) [#/Vol] 4.75 10*6/uL 4.6-6.2 [facility] Work Phone: Blood hemoglobin measurement (mass/volume)on 07-11-2022 Hemoglobin (Bld) [Mass/Vol] 12.7 g/dL 13.0-16. 5 [facility] Work Phone: Blood lymphocytes/100 leukoc yteson 07-11-2022 Lymphocytes/100 WBC (Bld) 24.1 % 19-41 [facility] Work Phone: Blood monocytes/100 leukocyt eson 07-11-2022 Monocytes/100 WBC (Bld) 6.8 % 0-10 [facility] Work Phone: Blood platelet mean volumeon 07-11-2022 Platelet mean volume (Bld) [Entitic vol] 9.2 fL 6.2-12.0 [facility] Work Phone: Determination of erythrocyte mean corpuscular volume (MCV)on 07-11-2022 MCV (RBC) [Entitic vol] 82.7 fL 80-94 [facility] Work Phone: Glucose Glucometer (BldC) [M ass/Vol]on 07-11-2022 Glucose [Mass/Vol] 149 mg/dL 74-106 [facility] Work Phone: Comment on above: MANAGEMENT OF PATIEN T CARE PER NURSING PROTOCOL Hematocrit Auto (Bld) [Volum e fraction]on 07-11-2022 Hematocrit (Bld) [Volume fraction] 39.3 % 40-54 [facility] Work Phone: INR in Blood by Coagulation assayon 07-11-2022 INR Coag (Bld) [Relative time] 2.1 {INR} [facility] Work Phone: Laboratory - Chemistry and C hemistry - challengeon 07-11-2022 ALP [Catalytic activity/Vol] 106 U/L 45-117 [facility] Work Phone: ALT [Catalytic activity/Vol] 22 U/L 16-61 [facility] Work Phone: CO2 [Moles/Vol] 25.0 mmol/L 21.0-32.0 [facility] Work Phone: Globulin (S) [Mass/Vol] 2.9 g/dL 2.2-4.2 [facility] Work Phone: Magnesium [Mass/Vol] 1.9 mg/dL 1.6-2.6 [facility] Work Phone: Urea nitrogen/Creatinine [Mass ratio] 17.7 mg/mg 10-20 [facility] Work Phone: Laboratory - Coagulationon 09-11-2021 PT Coag (PPP) [Time] 23.6 s 11.7-14.9 [facility] Work Phone: Laboratory - Hematology and Cell countson 07-11-2022 Erythrocyte distribution width (RBC) [Entitic vol] 44.0 fL 35.1-43.9 [facility] Work Phone: Erythrocyte distribution width (RBC) [Ratio] 14.6 % 11.6-14.6 [facility] [facility] Work Phone: Immature granulocytes/100 WBC (Bld) 0.900 % 0.0-0.9 [facility] Work Phone: Comment on above: IG% - Immature Granu locytes (promyelocytes, myelocytes and metamyelocytes) > 1% indicates that a LEFT SHIFT is Present. MCH (RBC) [Entitic mass] 26.7 pg 27.0-32.0 [facility] Work Phone: Nucleated RBC/100 WBC (Bld) [Ratio] 0 % 0-5 [facility] Work Phone: MCHC Auto (RBC) [Mass/Vol]on 07-11-2022 MCHC (RBC) [Mass/Vol] 32.3 g/dL 32-36 [facility] Work Phone: No Panel Informationon 07-11 Estimated Creatinine Clearance Calc 64.82 ml/min [facility] Work Phone: Estimated GFR (MDRD) Amer 81 mL/min >60 [facility] Work Phone: Comment on above: GFR Calc Estimated GFR (MDRD) Non-Af Amer 67 mL/min >60 [facility] Work Phone: Comment on above: Non- GFR Calc Platelets bldon 07-11-2022 Platelets (Bld) [#/Vol] 200 10*3/uL 150-450 [facility] Work Phone: Serum or plasma albumin antoine urement (mass/volume)on 07-11-2022 Albumin [Mass/Vol] 3.0 g/dL 3.2-5.0 [facility] Work Phone: Serum or plasma albumin/glob ulin mass ratioon 07-11-2022 Albumin/Globulin [Mass ratio] 1.0 {ratio} 0.9-2.4 [facility] Work Phone: Serum or plasma calcium antoine urement (mass/volume)on 07-11-2022 Calcium [Mass/Vol] 8.6 mg/dL 8.5-10.1 [facility] Work Phone: Serum or plasma cholesterol in HDL measurement (mass/volume)on 07-11-2022 Cholesterol in HDL [Mass/Vol] 36 mg/dL >40 [facility] Work Phone: Comment on above: The drugs N-Acetylcy steine and Metamizole may falsely depress this assay. Reference Range HDL <40 mg/dL Low HDL Cholesterol HDL >or= 60 mg/dL High HDL Cholesterol Serum or plasma cholesterol in VLDL measurement (mass/volume)on 07-11-2022 Cholesterol in VLDL [Mass/Vol] 25 mg/dL 5-40 [facility] Work Phone: Serum or plasma creatinine m easurement (mass/volume)on 07-11-2022 Creatinine [Mass/Vol] 1.13 mg/dL 0.70-1.30 [facility] Work Phone: Comment on above: The validity of the calculated GFR & GFRAA in patients over 70 years has not been determined. Clinical correlation is essential. Serum or plasma low density lipoprotein (LDL) cholesterol measurement (mass/volume)on 07-11-2022 Cholesterol in LDL [Mass/Vol] 41 mg/dL 0-130 [facility] Work Phone: Serum or plasma urea nitroge n measurement (mass/volume)on 07-11-2022 Urea nitrogen [Mass/Vol] 20 mg/dL 7-18 [facility] Work Phone: Thin prep Papanicolaou smear with manual screeningon 07-11-2022 Thin prep Papanicolaou smear with manual screening 23 U/L 15-37 [facility] Work Phone: Thin prep Papanicolaou smear with manual screening 8 5-15 [facility] Work Phone: No Panel Informationon 07-10 Troponin I High Sensitivity 103 pg/mL 3.0-78.0 [facility] Work Phone: Comment on above: Please Note: New Thania t Units and Gender Specific Reference Ranges. For more information see Policy Stat Procedure [place] High Sensitivity Troponin (TNIH) and attachments. Thyroid Stimulating Hormone (TSH) 1.03 uIU/mL 0.358-3.74 [facility] Work Phone: Basophil percentageon 2021 Basophil percentage 0-5 SEEN /hpf 0-5 [facility] Work Phone: Bilirubin Test strip Ql (U)o n 07-09-2022 Bilirubin Ql (U) Negative Negative [facility] Work Phone: Hyaline casts LM.LPF (Urine sed) [#/Area]on 07-09-2022 Hyaline casts (Urine sed) [#/Area] 0 /[LPF] 0-5 [facility] Work Phone: Ketones Test strip Ql (U)on 07-09-2022 Ketones Ql (U) 5 mg/dl Negative [facility] Work Phone: Mucus LM Ql (Urine sed)on Mucus Ql (Urine sed) 1+ /hpf [facility] Work Phone: Nitrite Test strip Ql (U)on 07-09-2022 Nitrite Ql (U) Negative Negative [facility] Work Phone: Protein Test strip Ql (U)on 07-09-2022 Protein Ql (U) 30 mg/dl Negative [facility] Work Phone: Squamous epithelial cells de tection in urine sediment by light microscopyon 07-09-2022 Epithelial cells.squamous LM Ql (Urine sed) 0 SEEN /hpf 0-5 [facility] Work Phone: Urine blood detectionon 06-15 RBC Ql (U) 25 /ul Negative [facility] Work Phone: RBC Ql (U) 0-5 SEEN /hpf 0-5 [facility] Work Phone: Urine clarityon 07-09-2022 Clarity (U) Clear Clear [facility] Work Phone: Urine color determinationon 07-09-2022 Color (U) Yellow Yellow [facility] Work Phone: Urine glucose detectionon Glucose Ql (U) Normal mg/dl Normal [facility] Work Phone: Urine leukocyte esterase det ection by dipstickon 07-09-2022 Leukocyte esterase Test strip Ql (U) Negative Negative [facility] Work Phone: Urine pHon 07-09-2022 pH (U) 5.0 [pH] 5.0 - 8.0 [facility] Work Phone: Urine sediment bacteria coun t by microscopy (number/high power field)on 07-09-2022 Bacteria LM.HPF (Urine sed) [#/Area] 1 /[HPF] None Seen [facility] Work Phone: Urine specific gravity measu rementon 07-09-2022 Specific gravity (U) [Rel density] 1.025 1.002-1.03 0 [facility] Work Phone: Urobilinogen Auto test strip Ql (U)on 07-09-2022 Urobilinogen Ql (U) 1 mg/dl Normal [facility] Work Phone: INR in Blood by Coagulation assayon 03-07-2022 INR Coag (Bld) [Relative time] 2.9 {INR} [facility] - Coagulationon 0 03-07-2022 PT Coag (PPP) [Time] 30.2 s 11.7-14.9 [facility] Work Phone: Absolute lymphocyte counton 03-02-2022 Lymphocytes Auto (Unsp spec) [#/Vol] 1.26 10*3/uL 0.83-4.51 [facility] Work Phone: Basophil percentageon 2021 Basophil percentage 0 SEEN /hpf 0-5 [facility] Work Phone: Basophils/100 WBC (Bld) 0.4 % 0-1 [facility] Work Phone: [phone] Chloride [Moles/Vol] 105 mmol/L 98-107 [facility] Work Phone: [phone] Eosinophils/100 WBC (Bld) 2.5 % 0-5 [facility] Work Phone: Glucose [Mass/Vol] 158 mg/dL 74-106 [facility] Work Phone: Comment on above: Fasting Glucose resu lt greater than or equal to 126 mg/dL suggests DIABETES MELLITUS per A.D.A. criteria. Neutrophils (Bld) [#/Vol] 8.8 10*3/uL 2.0-7.7 [facility] Work Phone: Neutrophils/100 WBC (Bld) 78.8 % 47-70 [facility] Work Phone: Potassium [Moles/Vol] 4.2 mmol/L 3.5-5.1 [facility] Work Phone: Sodium [Moles/Vol] 138 mmol/L 136-145 [facility] Work Phone: WBC (Bld) [#/Vol] 11.2 10*3/uL 4.4-11.0 [facility] Work Phone: Bilirubin Test strip Ql (U)o n 03-02-2022 Bilirubin Ql (U) Negative Negative [facility] Work Phone: Blood erythrocytes count (nu mber/volume)on 03-02-2022 RBC (Bld) [#/Vol] 5.15 10*6/uL 4.6-6.2 [facility] Work Phone: Blood hemoglobin measurement (mass/volume)on 03-02-2022 Hemoglobin (Bld) [Mass/Vol] 13.8 g/dL 13.0-16. 5 [facility] Work Phone: Blood lymphocytes/100 leukoc yteson 03-02-2022 Lymphocytes/100 WBC (Bld) 11.2 % 19-41 [facility] Work Phone: Blood monocytes/100 leukocyt eson 03-02-2022 Monocytes/100 WBC (Bld) 5.7 % 0-10 [facility] Work Phone: Blood platelet mean volumeon 03-02-2022 Platelet mean volume (Bld) [Entitic vol] 9.0 fL 6.2-12.0 [facility] Work Phone: Determination of erythrocyte mean corpuscular volume (MCV)on 03-02-2022 MCV (RBC) [Entitic vol] 82.3 fL 80-94 [facility] Work Phone: Glucose Glucometer (BldC) [M ass/Vol]on 03-02-2022 Glucose [Mass/Vol] 158 mg/dL 74-106 [facility] Work Phone: Comment on above: MANAGEMENT OF PATIEN T CARE PER NURSING PROTOCOL Hematocrit Auto (Bld) [Volum e fraction]on 03-02-2022 Hematocrit (Bld) [Volume fraction] 42.4 % 40-54 [facility] Work Phone: Hyaline casts LM.LPF (Urine sed) [#/Area]on 03-02-2022 Hyaline casts (Urine sed) [#/Area] 0 /[LPF] 0-5 [facility] Work Phone: INR in Blood by Coagulation assayon 03-02-2022 INR Coag (Bld) [Relative time] 4.4 {INR} [facility] Work Phone: Comment on above: CRITICAL VALUE VERIF IED. CALLED TO VLRASAY76/19/22 Morris Ma.RESULTS READ BACK BY SAME . Ketones Test strip Ql (U)on 03-02-2022 Ketones Ql (U) 5 mg/dl Negative [facility] Work Phone: Laboratory - Chemistry and C hemistry - challengeon 03-02-2022 CO2 [Moles/Vol] 23.0 mmol/L 21.0-32.0 [facility] Work Phone: Urea nitrogen/Creatinine [Mass ratio] 16.9 mg/mg 10-20 [facility] Work Phone: Laboratory - Coagulationon 0 03-02-2022 PT Coag (PPP) [Time] 41.4 s 11.7-14.9 [facility] Work Phone: Laboratory - Hematology and Cell countson 03-02-2022 Erythrocyte distribution width (RBC) [Entitic vol] 41.4 fL 35.1-43.9 [facility] Work Phone: Erythrocyte distribution width (RBC) [Ratio] 14.0 % 11.6-14.6 [facility] Work Phone: Immature granulocytes/100 WBC (Bld) 1.400 % 0.0-0.9 [facility] Work Phone: Comment on above: IG% - Immature Granu locytes (promyelocytes, myelocytes and metamyelocytes) > 1% indicates that a LEFT SHIFT is Present. MCH (RBC) [Entitic mass] 26.8 pg 27.0-32.0 [facility] Work Phone: Nucleated RBC/100 WBC (Bld) [Ratio] 0 % 0-5 [facility] Work Phone: MCHC Auto (RBC) [Mass/Vol]on 03-02-2022 MCHC (RBC) [Mass/Vol] 32.5 g/dL 32-36 [facility] Work Phone: Mucus LM Ql (Urine sed)on Mucus Ql (Urine sed) 3+ /hpf [facility] Work Phone: Nitrite Test strip Ql (U)on 03-02-2022 Nitrite Ql (U) Negative Negative [facility] Work Phone: No Panel Informationon 03-02 Estimated Creatinine Clearance Calc 49.49 ml/min [facility] Work Phone: Estimated GFR (MDRD) Amer 60 mL/min >60 [facility] Work Phone: Comment on above: GFR Calc Estimated GFR (MDRD) Non-Af Amer 49 mL/min >60 [facility] Work Phone: Comment on above: Non- GFR Calc Troponin I High Sensitivity 11 pg/mL 3.0-78.0 [facility] Work Phone: Comment on above: Please Note: New Thania t Units and Gender Specific Reference Ranges. For more information see Policy Stat Procedure [place] High Sensitivity Troponin (TNIH) and attachments. Platelets bldon 03-02-2022 Platelets (Bld) [#/Vol] 269 10*3/uL 150-450 [facility] Work Phone: Protein Test strip Ql (U)on 03-02-2022 Protein Ql (U) 30 mg/dl Negative [facility] Work Phone: Serum or plasma calcium antoine urement (mass/volume)on 03-02-2022 Calcium [Mass/Vol] 9.4 mg/dL 8.5-10.1 [facility] Work Phone: Serum or plasma creatinine m easurement (mass/volume)on 03-02-2022 Creatinine [Mass/Vol] 1.48 mg/dL 0.70-1.30 [facility] Work Phone: Comment on above: The validity of the calculated GFR & GFRAA in patients over 70 years has not been determined. Clinical correlation is essential. Serum or plasma urea nitroge n measurement (mass/volume)on 03-02-2022 Urea nitrogen [Mass/Vol] 25 mg/dL 7-18 [facility] Work Phone: Squamous epithelial cells de tection in urine sediment by light microscopyon 03-02-2022 Epithelial cells.squamous LM Ql (Urine sed) 0-5 SEEN /hpf 0-5 [facility] Work Phone: Thin prep Papanicolaou smear with manual screeningon 03-02-2022 Thin prep Papanicolaou smear with manual screening 10 5-15 [facility] Work Phone: Urine blood detectionon 02-12 RBC Ql (U) 10 /ul Negative [facility] Work Phone: RBC Ql (U) 0-5 SEEN /hpf 0-5 [facility] Work Phone: Urine clarityon 03-02-2022 Clarity (U) Clear Clear [facility] Work Phone: Urine color determinationon 03-02-2022 Color (U) Yellow Yellow [facility] Work Phone: Urine glucose detectionon Glucose Ql (U) 50 mg/dl Normal [facility] Work Phone: Urine leukocyte esterase det ection by dipstickon 03-02-2022 Leukocyte esterase Test strip Ql (U) Negative Negative [facility] Work Phone: Urine pHon 03-02-2022 pH (U) 5.0 [pH] 5.0 - 8.0 [facility] Work Phone: Urine sediment bacteria coun t by microscopy (number/high power field)on 03-02-2022 Bacteria LM.HPF (Urine sed) [#/Area] 2 /[HPF] None Seen [facility] Work Phone: Urine specific gravity measu rementon 03-02-2022 Specific gravity (U) [Rel density] 1.025 1.002-1.03 0 [facility] Work Phone: Urobilinogen Auto test strip Ql (U)on 03-02-2022 Urobilinogen Ql (U) Normal mg/dl Normal [facility] Work Phone: ECHOon 01-09-2022 [facility] CNPMaggie 01-02-2022 [facility] Telephone (VICTORIANO) KIRILL Irene ([id number]) 1945 M Date Time Provider Department 01/02/22 JUSTINA MONIQUE During your visit today, we recorded the following information about you: Justina Garcia LPN 01/02/2022 7:43 AM Signed ----- Message from Justina Monique APRN.DAMAGE APPRAISER sent at 01/02/2022 7:38 AM EDT ----- [...] Date Reviewed: 01/01/2022 Reviewed by: Justina Monique APRN.DAMAGE APPRAISER - Fully Assessed Reason for Visit: Results [...] mouth once daily. - blood sugar diagnostic (AOMiUCH ULTRA TEST) test strip Test blood sugar(s) [...] Encounter Status:Closed by JUSTINA GARCIA on 01/02/22 [facility] CBC W Auto Differential pane l (Bld)on 01-01-2022 Abs Immature Gran 0.15 k/uL High <0.10 k/uL [facility] Basophils (Bld) [#/Vol] 0.06 10*3/uL <0.11 k/uL [facility] Basophils/100 WBC (Bld) 0.5 % [facility] Differential cell count method Nom (Bld) Auto [facility] Eosinophils (Bld) [#/Vol] 0.39 10*3/uL <0.46 k/ uL [facility] Eosinophils/100 WBC (Bld) 3.1 % [facility] Erythrocyte distribution width (RBC) [Ratio] 14.5 % 11.5 - 15.0 % [facility] Hematocrit (Bld) [Volume fraction] 46.6 % 39.0 - 51.0 % [facility] Hemoglobin (Bld) [Mass/Vol] 14.5 g/dL 13.0 - 17.0 g/dL [facility] Immature Gran % 1.2 % [facility] Lymphocytes (Bld) [#/Vol] 1.81 10*3/uL 1. 00 - 4.00 k/uL [facility] Lymphocytes/100 WBC (Bld) 14.5 % [facility] MCH (RBC) [Entitic mass] 26.6 pg 26. 0 - 34.0 pg [facility] MCHC (RBC) [Mass/Vol] 31.1 g/dL 30.5 - 36.0 g/dL [facility] MCV (RBC) [Entitic vol] 85.3 fL 80.0 - 100.0 fL [facility] Monocytes (Bld) [#/Vol] 0.86 10*3/uL <0.87 k/uL [facility] Monocytes/100 WBC (Bld) 6.9 % [facility] Neutrophils (Bld) [#/Vol] 9.20 10*3/uL High 1. 45 - 7.50 k/uL [facility] Neutrophils/100 WBC (Bld) 73.8 % [facility] Nucleated RBC (Bld) [#/Vol] 10*3/uL <0.01 k/ uL [facility] Nucleated RBC/100 WBC (Bld) [Ratio] 0.0 /100 WBC [facility] Platelet mean volume (Bld) [Entitic vol] 9.7 fL 9.0 - 12.7 fL [facility] Platelets (Bld) [#/Vol] 287 10*3/uL 150 - 400 k/uL [facility] RBC (Bld) [#/Vol] 5.46 10*6/uL 4.20 - 6.00 m/uL [facility] WBC (Bld) [#/Vol] 12.47 10*3/uL High 3.70 - 11.00 k/uL [facility] Comprehensive metabolic 2000 panelon 01-01-2022 Albumin [Mass/Vol] 4.2 g/dL 3.9 - 4.9 g/dL [facility] ALP [Catalytic activity/Vol] 96 U/L 38 - 113 U/L [facility] ALT [Catalytic activity/Vol] 29 U/L 10 - 54 U/L [facility] Anion gap [Moles/Vol] 12 mmol/L 9 - 18 mmol/L [facility] AST [Catalytic activity/Vol] 20 U/L 14 - 40 U/L [facility] Bilirubin [Mass/Vol] 0.6 mg/dL 0.2 - 1 .3 mg/dL [facility] Calcium [Mass/Vol] 9.4 mg/dL 8.5 - 10. 2 mg/dL [facility] Chloride [Moles/Vol] 101 mmol/L 97 - 10 5 mmol/L [facility] CO2 [Moles/Vol] 25 mmol/L 22 - 30 mmol/L [facility] Creatinine [Mass/Vol] 1.20 mg/dL 0.73 - 1.22 mg/dL [facility] Estimated Glomerular Filtration Rate 63 mL/min/1.73m >=60 mL/min/1.7 3m [facility] Glucose [Mass/Vol] 118 mg/dL High 74 - 99 mg/dL [facility] Potassium [Moles/Vol] 4.4 mmol/L 3.7 - 5.1 mmol/L [facility] Protein [Mass/Vol] 6.6 g/dL 6.3 - 8.0 g/dL [facility] Sodium [Moles/Vol] 138 mmol/L 136 - 144 mmol/L [facility] Urea nitrogen [Mass/Vol] 15 mg/dL 9 - 24 mg/dL [facility] PSA/PROSTSPECAG SCRNon 01-01 Prostate specific Ag [Mass/Vol] 1.75 ng/mL <2.60 ng/mL [facility] UA DIP, URINE (POC)on 2021 BILIRUBIN UA (POCT) Negative Negative [facility] CLARITY UA (POCT) Clear [facility] COLOR UA (POCT) Dark yellow [facility] GLUCOSE UA (POCT) 100 mg/dL Abnormal Negative mg/dL [facility] HEMOGLOBIN/BLOOD UA (POCT) Trace-intact Abnormal Negativ e [facility] KETONE UA (POCT) Negative Negative mg/dL [facility] LEUKOCYTES UA (POCT) Negative Negative [facility] NITRITE UA (POCT) Negative Negative [facility] PH UA (POCT) 5.5 4.5 - 8.0 [facility] Protein Ql (U) 30 mg/dL Abnormal Negative mg/dL [facility] SPECIFIC GRAVITY UA (POCT) >=1.030 1 .005 - 1.030 [facility] UROBILINOGEN UA (POCT) 1.0 E.U./dL Lanette l E.U./dL [facility] VITAMIN B12 BLOODon 01-02-20 Cobalamin (Vitamin B12) [Mass/Vol] 377 pg/mL 232-1,245 pg/mL [facility] Absolute lymphocyte counton 12-29-2021 Lymphocytes Auto (Unsp spec) [#/Vol] 1.56 10*3/uL 0.83-4.51 [facility] Work Phone: BCIDon 12-29-2021 Acinetobacter justen-baumanii complex Not detected Normal Not Detected [facility] [place] Comment on above: Performed By: #### B JIN #### [place] [address] Bacteroides fragilis Not detected Normal Not Detected [facility] [place] Comment on above: Performed By: #### B JIN #### [place] [address] BCID Comment See Comment Normal [facility] [place] Comment on above: Result Comment: Anti microbial [...] follow. Performed By: #### B JIN #### [place] [address] Kellie albicans Not detected Normal Not Detected [facility] [place] Comment on above: Performed By: #### B JIN #### [place] [address] Kellie auris Not detected Normal Not Detected [facility] Comment on above: Performed By: #### B JIN #### [facility] [address] [place] [address] Kellie glabrata Not detected Normal Not Detected [facility] Comment on above: Performed By: #### B JIN #### [facility] [address] [place] [address] Kellie krusei Not detected Normal Not Detected [facility] Comment on above: Performed By: #### B JIN #### [facility] [address] [place] [address] Kellie parapsilosis Not detected Normal Not Detected [facility] Comment on above: Performed By: #### B JIN #### [place] [address] Kellie tropicalis Not detected Normal Not Detected [facility] Comment on above: Performed By: #### B JIN #### [place] [address] Cryptococcus neoformans-gattii Not detected Normal Not Detected [facility] Comment on above: Performed By: #### B JIN #### [place] [address] CTX-M (ESBL) Not Applicable Normal Not Detected [facility] Comment on above: Performed By: #### B JIN #### [place] [address] E. Coli Not detected Normal Not Detected [facility] Comment on above: Performed By: #### B JIN #### [facility] [address] [place] [address] Enterobacter cloacae Complex Not detected Normal Not Detected [facility] Comment on above: Performed By: #### B JIN #### [facility] [address] [place] [address] Enterobacterales Not detected Normal Not Detected [facility] Comment on above: Performed By: #### B JIN #### [place] [address] Enterococcus faecalis Not detected Normal Not Detected [facility] Comment on above: Performed By: #### B JIN #### [facility] [address] [place] [id number] Enterococcus faecium Not detected Normal Not Detected [facility] Comment on above: Performed By: #### B JIN #### [facility] [address] [place] [address] Haemophilus influenzae Not detected Normal Not Detected On [facility] Comment on above: Performed By: #### B JIN #### [facility] [address] [place] [id number] IMP (Carbapenemase) Not Applicable Normal Not Detected On [facility] Comment on above: Performed By: #### B JIN #### [address] [address] Klebsiella aerogenes Not detected Normal Not Detected On [facility] [place] Comment on above: Performed By: #### B JIN #### [address] [address] Klebsiella oxytoca Not detected Normal Not Detected On [facility] [place] Comment on above: Performed By: #### B JIN #### [address] [address] Klebsiella pneumoniae group Not detected Normal Not Detected On [facility] Comment on above: Performed By: #### B JIN #### [facility] [address] [place] [address] KPC (Carbapenemase) Not Applicable Normal Not Detected [facility] [place] Comment on above: Performed By: #### B JIN #### [facility] [address] [place] [address] Listeria monocytogenes Not detected Normal Not Detected On [facility] Comment on above: Performed By: #### B JIN #### [facility] [address] [place] [address] MCR-1 (Colistin Resistance) Not Applicable Normal Not Detected On [facility] Comment on above: Performed By: #### B JIN #### [facility] [address] [place] [id number] Mec A/C Detected Abnormal Not Detected On [facility] Comment on above: Performed By: #### B JIN #### [place] [address] Mec A/C-MREJ (MRSA) Not Applicable Normal Not Detected On [facility] Comment on above: Performed By: #### B JIN #### [facility] [address] [place] [address] NDM (Carbapenemase) Not Applicable Normal Not Detected On [facility] Comment on above: Performed By: #### B JIN #### [place] [address] Neisseria meningitidis (Encapsalated) Not detected Normal Not Detected On [facility] Comment on above: Performed By: #### B JIN #### [place] [address] OXA-48 like (Carbapenemase) Not Applicable Normal Not Detected On [facility] Comment on above: Performed By: #### B JIN #### [place] [address] Proteus Not detected Normal Not Detected On [facility] Comment on above: Performed By: #### B JIN #### [place] [address] Pseudomonas aeruginosa Not detected Normal Not Detected On [facility] [place] Comment on above: Performed By: #### B IJN #### [place] [address] S. agalactiae Org specific cx Ql (Vag fld) Not detected Normal Not Detected On [facility] Comment on above: Performed By: #### B JIN #### [place] [address] Salmonella species Not detected Normal Not Detected On [facility] Comment on above: Performed By: #### B JIN #### [place] [id number] Serratia marcescens Not detected Normal Not Detected On [facility] [place] Comment on above: Performed By: #### B JIN #### [place] [address] Staphylococcus Detected Abnormal Not Detected On [facility] [place] Comment on above: Performed By: #### B JIN #### [place] [id number] Staphylococcus aureus Not detected Normal Not Detected On [facility] [place] Comment on above: Result Comment: If S taphylococcus aureus is "Detected", an Infectious Disease physician consult is required on identification. Performed By: #### B JIN #### [place] [address] Staphylococcus epidermidis Detected Abnormal N ot Detected On License Of [facility] ([place]) Comment on above: Performed By: #### B JIN #### [place] [address] Staphylococcus lugdunensis Not detected Normal N ot Detected On License Of [facility] ([place]) Comment on above: Performed By: #### B JIN #### [place] [address] Stenotropomonas maltophilia Not detected Normal Not Detected On License Of [facility] ([place]) Comment on above: Performed By: #### B JIN #### [place] [address] Streptococcus Not detected Normal Not Detected On License Of [facility] ([place]) Comment on above: Performed By: #### B JIN #### [place] [id number] Streptococcus pneumoniae Not detected Normal Not Detected On License Of [facility] ([place]) Comment on above: Performed By: #### B JIN #### [place] [id number] Streptococcus pyogenes Not detected Normal Not Detected On License Of [facility] ([place]) Comment on above: Performed By: #### B JIN #### [address] [address] Van A/B Not Applicable Normal Not Detected On License Of [facility] ([place] Comment on above: Performed By: #### B JIN #### [place] [id number] VIM (Carbapenemase) Not Applicable Normal Not Detected On License Of [facility] ([place]) Comment on above: Performed By: #### B JIN #### [place] [id number] Basophil percentageon 2021 Basophils/100 WBC (Bld) 0.3 % 0-1 [facility] Work Phone: Chloride [Moles/Vol] 108 mmol/L 98-107 [facility] Work [facility]: Eosinophils/100 WBC (Bld) 3.2 % 0-5 [facility] Work Phone: [phone] Glucose [Mass/Vol] 109 mg/dL 74-106 [facility] Work Phone: Comment on above: Fasting Glucose resu lt from 100 to 125 mg/dL suggests IMPAIRED HOMEOSTASIS per A.D.A. criteria. Neutrophils (Bld) [#/Vol] 6.6 10*3/uL 2.0-7.7 [facility] Work Phone: [phone] Neutrophils/100 WBC (Bld) 70.4 % 47-70 [facility] Work Phone: Potassium [Moles/Vol] 4.1 mmol/L 3.5-5.1 [facility] Work Phone: Sodium [Moles/Vol] 140 mmol/L 136-145 [facility] Work Phone: WBC (Bld) [#/Vol] 9.4 10*3/uL 4.4-11.0 [facility] Work Phone: Blood erythrocytes count (nu mber/volume)on 12-29-2021 RBC (Bld) [#/Vol] 4.61 10*6/uL 4.6-6.2 [facility] Work Phone: Blood hemoglobin measurement (mass/volume)on 12-29-2021 Hemoglobin (Bld) [Mass/Vol] 12.4 g/dL 13.0-16. 5 [facility] Work Phone: Blood lymphocytes/100 leukoc yteson 12-29-2021 Lymphocytes/100 WBC (Bld) 16.7 % 19-41 [facility] Work Phone: Blood monocytes/100 leukocyt eson 12-29-2021 Monocytes/100 WBC (Bld) 8.7 % 0-10 [facility] Work Phone: Blood platelet mean volumeon 12-29-2021 Platelet mean volume (Bld) [Entitic vol] 9.3 fL 6.2-12.0 [facility] Work Phone: Determination of erythrocyte mean corpuscular volume (MCV)on 12-29-2021 MCV (RBC) [Entitic vol] 82.9 fL 80-94 [facility] Work Phone: Glucose Glucometer (BldC) [M ass/Vol]on 12-29-2021 Glucose [Mass/Vol] 129 mg/dL 74-106 [facility] Work Phone: Comment on above: MANAGEMENT OF PATIEN T CARE PER NURSING PROTOCOL Hematocrit Auto (Bld) [Volum e fraction]on 12-29-2021 Hematocrit (Bld) [Volume fraction] 38.2 % 40-54 [facility] Work Phone: Laboratory - Chemistry and C hemistry - challengeon 12-29-2021 CO2 [Moles/Vol] 27.0 mmol/L 21.0-32.0 [facility] Work Phone: Urea nitrogen/Creatinine [Mass ratio] 16.5 mg/mg 10-20 [facility] Work Phone: Laboratory - Hematology and Cell countson 12-29-2021 Erythrocyte distribution width (RBC) [Entitic vol] 42.5 fL 35.1-43.9 [facility] Work Phone: Erythrocyte distribution width (RBC) [Ratio] 14.2 % 11.6-14.6 [facility] Work Phone: Immature granulocytes/100 WBC (Bld) 0.700 % 0.0-0.9 [facility] Work Phone: Comment on above: IG% - Immature Granu locytes (promyelocytes, myelocytes and metamyelocytes) > 1% indicates that a LEFT SHIFT is Present. MCH (RBC) [Entitic mass] 26.9 pg 27.0-32.0 [facility] Work Phone: Nucleated RBC/100 WBC (Bld) [Ratio] 0 % 0-5 [facility] Work Phone: MCHC Auto (RBC) [Mass/Vol]on 12-29-2021 MCHC (RBC) [Mass/Vol] 32.5 g/dL 32-36 [facility] Work Phone: No Panel Informationon 12-29 Estimated Creatinine Clearance Calc 71.11 ml/min [facility] Work Phone: Estimated GFR (MDRD) Amer 91 mL/min >60 [facility] Work Phone: Comment on above: GFR Calc Estimated GFR (MDRD) Non-Af Amer 75 mL/min >60 [facility] Work Phone: Comment on above: Non- GFR Calc Platelets bldon 12-29-2021 Platelets (Bld) [#/Vol] 177 10*3/uL 150-450 [facility] Work Phone: Serum or plasma calcium antoine urement (mass/volume)on 12-29-2021 Calcium [Mass/Vol] 8.4 mg/dL 8.5-10.1 [facility] Work Phone: Serum or plasma creatinine m easurement (mass/volume)on 12-29-2021 Creatinine [Mass/Vol] 1.03 mg/dL 0.70-1.30 [facility] Work Phone: Comment on above: The validity of the calculated GFR & GFRAA in patients over 70 years has not been determined. Clinical correlation is essential. Serum or plasma urea nitroge n measurement (mass/volume)on 12-29-2021 Urea nitrogen [Mass/Vol] 17 mg/dL 7-18 [facility] Work Phone: Thin prep Papanicolaou smear with manual screeningon 12-29-2021 Thin prep Papanicolaou smear with manual screening 5 5-15 [facility] Work Phone: Basophil percentageon 2021 Lactate [Moles/Vol] 1.9 mmol/L 0.4-2.0 [facility] Work Phone: COon 12-28-2021 Carbon Monoxide Level See Comments Normal A [facility] ([place]) Comment on above: Order Comment: See S eparate Report Performed By: #### L IP, MG, TROPHS, CK, LAC, GFR, CO, CMP ####[address] [address] Laboratory - Chemistry and C hemistry - challengeon 12-28-2021 Magnesium [Mass/Vol] 1.8 mg/dL 1.6-2.6 [facility] Work Phone: No Panel Informationon 12-28 Troponin I High Sensitivity 23 pg/mL 3.0-78.0 [facility] Work Phone: Comment on above: Please Note: New Thania t Units and Gender Specific Reference Ranges. For more information see Policy Stat Procedure [place] High Sensitivity Troponin (TNIH) and attachments. .Auto Diffon 12-27-2021 Basophil, Absolute 0.1 10 3/mcL Normal 0.0-0.2 [facility] ([place]) Comment on above: Performed By: #### L IP, MG, TROPHS, CK, LAC, GFR, CO, CMP #### [address] [address] Basophils/100 WBC (Bld) 0.4 % Normal 0.0-2.5 A [facility] ([place]) Comment on above: Performed By: #### L IP, MG, TROPHS, CK, LAC, GFR, CO, CMP #### [address] [address] Eosinophil, Absolute 0.1 10 3/mcL Normal 0.0-0.4 [facility] ([place]) Comment on above: Performed By: #### L IP, MG, TROPHS, CK, LAC, GFR, CO, CMP #### [place] [id number] [place], [place] [address] Eosinophils/100 WBC (Bld) 0.7 % Normal 0.0-7.0 On License Of [facility] ([place]) Comment on above: Performed By: #### L IP, MG, TROPHS, CK, LAC, GFR, CO, CMP #### [address] [address] Lymphocyte, Absolute 1.4 10 3/mcL Normal 0.8-3.9 [facility] ([place] Comment on above: Performed By: #### L IP, MG, TROPHS, CK, LAC, GFR, CO, CMP #### [address] [address] Lymphocytes/100 WBC (Bld) 9.6 % Low 10.0-50.0 On License Of [facility] ([place] Comment on above: Performed By: #### L IP, MG, TROPHS, CK, LAC, GFR, CO, CMP #### [address] [address] Monocyte, Absolute 0.8 10 3/mcL Normal 0.2-1.0 [facility] ([place] Comment on above: Performed By: #### L IP, MG, TROPHS, CK, LAC, GFR, CO, CMP #### [address] [address] Monocytes/100 WBC (Bld) 5.3 % Normal 1.7-13.0 A [facility] ([place] Comment on above: Performed By: #### L IP, MG, TROPHS, CK, LAC, GFR, CO, CMP #### [address] [address] Neutrophils/100 WBC (Bld) 84.0 % High 37.0-80.0 On License Of [facility] ([place]) Comment on above: Performed By: #### L IP, MG, TROPHS, CK, LAC, GFR, CO, CMP #### [address] [address] .GFRon 12-27-2021 GFR 43 ml/min/1.73sqm Normal On License Of [facility] ([place]) Comment on above: Result Comment: GFR Population [...] CK, LAC, GFR, CO, CMP ####[address] [place], [place] [address] GFR Non- 35 ml/min/1.73sqm Normal On License Of [facility] ([place]) Comment on above: Result Comment: GFR Population [...] CK, LAC, GFR, CO, CMP ####[address] [place], [place] [address] .MDWon 12-27-2021 Monocyte Distribution Width 15.91 Normal 0.00-20. 00 On License Of [facility] ([place]) Comment on above: Result Comment: For ED adult patients suspected of sepsis, MDW<=20.0 does not rule out sepsis or risk of sepsis Performed By: #### L IP, MG, TROPHS, CK, LAC, GFR, CO, CMP ####[place] [place], [place] [address] .NEUABSon 12-27-2021 Neutrophil, Absolute 12.6 10 3/mcL High 2.9-6.2 A [facility] ([place]) Comment on above: Performed By: #### L IP, MG, TROPHS, CK, LAC, GFR, CO, CMP ####Abbey [address] [address] Basophil percentageon 2021 Basophil percentage 3.8 mg/dL 2.5-4.9 [facility] Work Phone: Bilirubin [Mass/Vol] 0.80 mg/dL 0.20-1.00 [facility] Work Phone: Comment on above: For patients on eltr ombopag therapy, use of Dimension [place] TBIL is not recommended. Protein [Mass/Vol] 6.3 g/dL 6.4-8.2 [facility] Work Phone: CBCon 12-27-2021 Erythrocyte distribution width (RBC) [Ratio] 14.9 % High 11.5-14.5 On License Of [facility] ([place] Comment on above: Performed By: #### L IP, MG, TROPHS, CK, LAC, GFR, CO, CMP #### Abbey [address] [address] Hematocrit (Bld) [Volume fraction] 43.2 % Normal 42.0-52.0 On License Of [facility] ([place]) Comment on above: Performed By: #### L IP, MG, TROPHS, CK, LAC, GFR, CO, CMP #### Abbey [address] [address] Hgb 14.4 G/dL Normal 14.0-18.0 On License Of [facility] ([place]) Comment on above: Performed By: #### L IP, MG, TROPHS, CK, LAC, GFR, CO, CMP #### [place] [address] [place], [place] [address] MCH (RBC) [Entitic mass] 26.8 pg Low 27.0-31.2 On License Of [facility] ([place] Comment on above: Performed By: #### L IP, MG, TROPHS, CK, LAC, GFR, CO, CMP #### [address] [address] MCHC 33.4 G/dL Normal 31.8-35.4 On License Of [facility] ([place] Comment on above: Performed By: #### L IP, MG, TROPHS, CK, LAC, GFR, CO, CMP #### [address] [address] MCV (RBC) [Entitic vol] 80.2 fL Normal 80.0-94.0 A [facility] ([place]) Comment on above: Performed By: #### L IP, MG, TROPHS, CK, LAC, GFR, CO, CMP #### [address] [address] Platelet 305 10 3/mcL Normal 130-400 On License Of [facility] ([place]) Comment on above: Performed By: #### L IP, MG, TROPHS, CK, LAC, GFR, CO, CMP #### [address] [address] Platelet mean volume (Bld) [Entitic vol] 7.5 fL Normal 7.4-10.4 On License Of [facility] ([place] Comment on above: Performed By: #### L IP, MG, TROPHS, CK, LAC, GFR, CO, CMP #### [address] [address] RBC 5.39 10 6/mcL Normal 4.04-6.13 On License Of [facility] ([place]) Comment on above: Performed By: #### L IP, MG, TROPHS, CK, LAC, GFR, CO, CMP #### [address] [address] WBC 15.0 10 3/mcL High 4.6-10.8 On License Of [facility] ([place]) Comment on above: Performed By: #### L IP, MG, TROPHS, CK, LAC, GFR, CO, CMP #### [address] [address] CKon 12-27-2021 CK [Catalytic activity/Vol] 220 U/L Normal 39-308 On License Of [facility] ([place]) Comment on above: Performed By: #### L IP, MG, TROPHS, CK, LAC, GFR, CO, CMP ####[address] [place], [place] [address] CMPon 12-27-2021 Albumin Level 3.8 G/dL Normal 3.4-4.8 On License Of [facility] ([place]) Comment on above: Performed By: #### L IP, MG, TROPHS, CK, LAC, GFR, CO, CMP ####[place] [place], [place] [address] Albumin/Globulin [Mass ratio] 1.4 {ratio} Normal 1.1-2.5 On License Of [facility] ([place] Comment on above: Performed By: #### L IP, MG, TROPHS, CK, LAC, GFR, CO, CMP ####[address] [place], [place] [address] ALP [Catalytic activity/Vol] 105 U/L Normal 40-135 On License Of [facility] ([place] Comment on above: Performed By: #### L IP, MG, TROPHS, CK, LAC, GFR, CO, CMP ####[place] [place], [place] [address] ALT [Catalytic activity/Vol] 20 U/L Normal 16-63 On License Of [facility] ([place] Comment on above: Performed By: #### L IP, MG, TROPHS, CK, LAC, GFR, CO, CMP ####[place] [place], [place] [address] AST [Catalytic activity/Vol] 16 U/L Normal 10-40 On License Of [facility] ([place] Comment on above: Performed By: #### L IP, MG, TROPHS, CK, LAC, GFR, CO, CMP ####[place] [place], [place] [address] Bili Total 0.8 mg/dL Normal 0.2-1.0 On License Of [facility] ([place]) Comment on above: Result Comment: Use of this assay is not recommended for patients undergoing treatment with eltrombopag due to the potential for falsely elevated results. Performed By: #### L IP, MG, TROPHS, CK, LAC, GFR, CO, CMP ####[address] [place], [place] [address] BUN/Creatinine Ratio 12 ratio Normal 7-27 [facility] ([place] Comment on above: Performed By: #### L IP, MG, TROPHS, CK, LAC, GFR, CO, CMP ####Ab[address] [place], [place] [address] Calcium [Mass/Vol] 9.4 mg/dL Normal 8.4-10.2 [facility] ([place]) Comment on above: Performed By: #### L IP, MG, TROPHS, CK, LAC, GFR, CO, CMP ####[address] [place], [place] [address] Chloride [Moles/Vol] 104 mmol/L Normal 98-107 [facility] ([place] Comment on above: Performed By: #### L IP, MG, TROPHS, CK, LAC, GFR, CO, CMP ####[place] [place], [place] [address] CO2 [Moles/Vol] 22 mmol/L Low 23-31 On License Of [facility] ([place] Comment on above: Performed By: #### L IP, MG, TROPHS, CK, LAC, GFR, CO, CMP ####Ab[address] [place], [place] [address] Creatinine [Mass/Vol] 1.88 mg/dL High 0.70-1.30 [facility] ([place]) Comment on above: Performed By: #### L IP, MG, TROPHS, CK, LAC, GFR, CO, CMP ####Ab[address] [place], [place] [address] Electrolyte Balance 13.0 mEq/L Normal 4.0-15.0 [facility] ([place]) Comment on above: Performed By: #### L IP, MG, TROPHS, CK, LAC, GFR, CO, CMP ####Ab[address] [place], [place] [address] Globulin 2.8 G/dL Normal On License Of [facility] ([place]) Comment on above: Performed By: #### L IP, MG, TROPHS, CK, LAC, GFR, CO, CMP ####Ab[address] [place], [place] [address] Glucose [Mass/Vol] 205 mg/dL High 83-110 [facility] ([place]) Comment on above: Performed By: #### L IP, MG, TROPHS, CK, LAC, GFR, CO, CMP ####[address] [place], [place] [address] Potassium [Moles/Vol] 5.2 mmol/L High 3.5-5.1 [facility] ([place]) Comment on above: Performed By: #### L IP, MG, TROPHS, CK, LAC, GFR, CO, CMP ####[address] [place], [place] [address] Sodium [Moles/Vol] 139 mmol/L Normal 136-145 [facility] ([place]) Comment on above: Performed By: #### L IP, MG, TROPHS, CK, LAC, GFR, CO, CMP ####[address] [place], [place] [address] Total Protein 6.6 G/dL Normal 6.4-8.2 On License Of [facility] ([place] Comment on above: Performed By: #### L IP, MG, TROPHS, CK, LAC, GFR, CO, CMP ####[address] [place], [place] [address] Urea nitrogen [Mass/Vol] 23 mg/dL High 7-18 On License Of [facility] ([place] Comment on above: Performed By: #### L IP, MG, TROPHS, CK, LAC, GFR, CO, CMP ####[address] [place], [place] [address] [id number] 12-27-2021 Date of Onset [id number] Invalid Interpretation Code On License Of [facility] ([place]) Comment on above: Performed By: #### C OVD19, FLURSV #### Abbey [address] [place], [place] [address] Employed in Healthcare No Normal [facility] ([place] Comment on above: Performed By: #### C OVD19, FLURSV #### [place] [address] First Test No [facility] ([place] Comment on above: Performed By: #### C OVD19, FLURSV #### [place] [address] Hospitalized No [facility] ([place] Comment on above: Performed By: #### C OVD19, FLURSV #### [place] [address] ICU No [facility] ([place] Comment on above: Performed By: #### C OVD19, FLURSV #### [place] [address] Not [facility] ([place] Comment on above: Performed By: #### C OVD19, FLURSV #### [place] [address] [facility] ([place] Comment on above: Performed By: #### C OVD19, FLURSV #### [place] [address] SARS-CoV-2 (COVID-19) RNA ANGELY+probe Ql (Unsp spec) Positive Abnormal Negative On License Of [facility] ([place]) Comment on above: Performed By: #### C OVD19, FLURSV #### [place] [address] SARS-CoV-2 (COVID-19) RNA ANGELY+probe Ql (Unsp spec) [facility] ([place]) Comment on above: Result Comment: Posi tive results are indicative of the presence of SARS-CoV-2 RNA; clinical correlation with patient history and other diagnostic information is necessary to determine patient infection status. Positive results do not rule out bacterial infection or co-infection with other viruses. The agent detected may not be the definite cause of disease. Laboratories within the [facility] and its territories are required to report [...] By: #### C OVD19, FLURSV #### [place] [address] [address] [place], [place] [address] Symptomatic as Defined by CDC No Normal On License Of [facility] ([place]) Comment on above: Performed By: #### C OVD19, FLURSV #### Abbey [address] [address] [address] HEAD OR BRAIN W/O CONTRAS Ton [...] by: Maurice Dove MD Preliminary Report By: Brigitet Avilez Electronically signed By Maurice Dove MD Dictated Date: 12/27/2021 6:21:25 PM Prelim Date: 12/27/2021 6:25:57 PM Sign Date: 12/27/2021 7:53:25 PM Ordering Provider: SREEDHAR LINARES Normal On License Of [facility] ([place]) Carboxyhemoglobinon 12-28-19 Carboxyhemoglobin (Bld) [Mass/Vol] 1.9 % 0.0-1.5 [facility] Work Phone: Comment on above: * NON-SMOKER RANGE 1 .6 - 5.0% * LIGHT SMOKER RANGE 5.1 - 9.0% * HEAVY SMOKER RANGE FLURSVon 12-27-2021 Flu A PCR (AO) Negative Normal Negative On License Of [facility] ([place]) Comment on above: Result Comment: Posi tive [...] virus (RSV) nucleic acid in nasopharyngeal swab (SLITTER OPERATOR) specimens from patients with signs and symptoms of respiratory infection in conjunction with clinical and laboratory findings. The test is intended for use as an aid in the differential diagnosis of influenza A virus, influenza B virus, and RSV in humans and is not intended to detect influenza C. Performed By: #### C OVD19, FLURSV #### [id number] [place], [place] [address] Flu B PCR (AO) Negative Normal Negative On License Of [facility] ([place]) Comment on above: Result Comment: Posi tive [...] REPEAT COLLECTION AND TESTING IS RECOMMENDED. The Expreem Flu A/B & RSV Assay is a real-time polymerase chain reaction (PCR) based qualitative in vitro diagnostic test for the direct detection and differentiation of influenza A virus, influenza B virus, and respiratory syncytial virus (RSV) nucleic acid in nasopharyngeal swab (SLITTER OPERATOR) specimens from patients with signs and symptoms of respiratory infection in conjunction with clinical and laboratory findings. The test is intended for use as an aid in the differential diagnosis of influenza A virus, influenza B virus, and RSV in humans and is not intended to detect influenza C. Performed By: #### C OVD19, FLURSV #### [place] [id number] [place], [place] [address] RSV PCR (AO) Negative Normal Negative On License Of [facility] ([place]) Comment on above: Result Comment: Posi tive [...] virus (RSV) nucleic acid in nasopharyngeal swab (SLITTER OPERATOR) specimens from patients with signs and symptoms of respiratory infection in conjunction with clinical and laboratory findings. The test is intended for use as an aid in the differential diagnosis of influenza A virus, influenza B virus, and RSV in humans and is not intended to detect influenza C. Performed By: #### C OVD19, FLURSV #### [address] [place], [place] [address] INR in Blood by Coagulation assayon 12-27-2021 INR Coag (Bld) [Relative time] 2.4 {INR} [facility] Work Phone: LABORATORYOrdered By: Ramiro Rascon [...] definite cause of disease. Laboratories within the [facility] and its territories are required to report [...] Lactic Acid Lvl 3.0 mmol/L High 0.4-2.0 On License Of [facility] ([place]) Comment on above: Performed By: #### L AC #### [address] [address] Lactic Acid Lvl 4.6 mmol/L High 0.4-2.0 On License Of [facility] ([place]) Comment on above: Performed By: #### L IP, MG, TROPHS, CK, LAC, GFR, CO, CMP ####[address] [place], [place] [address] LIPon 12-27-2021 Lipase Level 67 U/L Low 73-393 On License Of [facility] ([place]) Comment on above: Performed By: #### L IP, MG, TROPHS, CK, LAC, GFR, CO, CMP ####[address] [place], [place] [address] Laboratory - Chemistry and C hemistry - challengeon 12-27-2021 ALP [Catalytic activity/Vol] 89 U/L 45-117 [facility] Work Phone: ALT [Catalytic activity/Vol] 26 U/L 16-61 [facility] Work Phone: Globulin (S) [Mass/Vol] 3.1 g/dL 2.2-4.2 [facility] Work Phone: Laboratory - Coagulationon 0 12-27-2021 PT Coag (PPP) [Time] 25.5 s 11.7-14.[address] [facility] Work Phone: MGon 12-27-2021 Magnesium [Mass/Vol] 1.3 mg/dL Low 1.8-2.4 [facility] ([place]) Comment on above: Performed By: #### L IP, MG, TROPHS, CK, LAC, GFR, CO, CMP ####[address] [address] PROon 12-27-2021 INR Coag (PPP) [Relative time] 2.7 {INR} High 0.9-1.2 On License Of [facility] ([place]) Comment on above: Result Comment: Tony dard Dose 2.0 - 3.0 High Dose 2.5 - 3.5 The recommended therapeutic range for oral anticoagulant therapy is: LOW RISK: Prophylaxis of venous thrombosis INR: 2.0 - 3.0 Treatment of pulmonary embolism 2.0 - 3.0 Prevention of systemic embolism 2.0 - 3.0 HIGH RISK: Mechanical prosthetic valves 2.5 - 3.5 Performed By: #### P RO #### [address] [address] PT Coag (PPP) [Time] 31.6 s High 9.7-14.3 [facility] ([place]) Comment on above: Performed By: #### P RO #### [address] [address] Serum or plasma albumin antoine urement (mass/volume)on 12-27-2021 Albumin [Mass/Vol] 3.2 g/dL 3.2-5.0 [facility] Work Phone: Serum or plasma albumin/glob ulin mass ratioon 12-27-2021 Albumin/Globulin [Mass ratio] 1.0 {ratio} 0.9-2.4 [facility] Work Phone: TROPHSon 12-27-2021 Troponin I High Sensitivity 11.1 ng/L Normal 0.0-76.2 On License Of [facility] ([place]) Comment on above: Performed By: #### L IP, MG, TROPHS, CK, LAC, GFR, CO, CMP #### [facility] [address] [place], [place] [address] Thin prep Papanicolaou smear with manual screeningon 12-27-2021 Thin prep Papanicolaou smear with manual screening 44 U/L 15-37 [facility] Work Phone: XR CHEST 1 VIEWon 12-27-2021 [...] Date: 12/27/2021 6:23:59 PM Ordering Provider: SREEDHAR Parson On License Of [facility] ([place]) Absolute lymphocyte counton 12-06-2021 Lymphocytes Auto (Unsp spec) [#/Vol] 0.42 10*3/uL 0.83-4.51 [facility] Work Phone: Basophil percentageon 2021 Basophils/100 WBC (Bld) 0.4 % 0-1 [facility] Work Phone: Chloride [Moles/Vol] 105 mmol/L 98-107 [facility] Work Phone: Eosinophils/100 WBC (Bld) 2.3 % 0-5 [facility] Work Phone: Glucose [Mass/Vol] 138 mg/dL 74-106 [facility] Work Phone: Comment on above: Fasting Glucose resu lt greater than or equal to 126 mg/dL suggests DIABETES MELLITUS per A.D.A. criteria. Neutrophils (Bld) [#/Vol] 7.5 10*3/uL 2.0-7.7 [facility] Work Phone: [phone] Neutrophils/100 WBC (Bld) 81.2 % 47-70 [facility] Work Phone: Potassium [Moles/Vol] 3.7 mmol/L 3.5-5.1 [facility] Work Phone: Sodium [Moles/Vol] 138 mmol/L 136-145 [facility] Work Phone: WBC (Bld) [#/Vol] 9.3 10*3/uL 4.4-11.0 [facility] [facility] Work Phone: Basophil percentage 0-5 SEEN /hpf 0-5 [facility] Work Phone: Bilirubin Test strip Ql (U)o n 12-06-2021 Bilirubin Ql (U) Negative Negative [facility] Work Phone: Blood erythrocytes count (nu mber/volume)on 12-06-2021 RBC (Bld) [#/Vol] 5.07 10*6/uL 4.6-6.2 [facility] Work Phone: Blood hemoglobin measurement (mass/volume)on 12-06-2021 Hemoglobin (Bld) [Mass/Vol] 13.8 g/dL 13.0-16. 5 [facility] Work Phone: Blood lymphocytes/100 leukoc yteson 12-06-2021 Lymphocytes/100 WBC (Bld) 4.5 % 19-41 [facility] Work Phone: Blood manual differential co mment interpretation (narrative result)on 12-06-2021 Manual differential comment Ori (Bld) [Interp] SCANNED [facility] Work Phone: Comment on above: LYMPHOPENIA NOTED Blood monocytes/100 leukocyt eson 12-06-2021 Monocytes/100 WBC (Bld) 8.6 % 0-10 [facility] Work Phone: Blood platelet mean volumeon 12-06-2021 Platelet mean volume (Bld) [Entitic vol] 9.2 fL 6.2-12.0 [facility] Work Phone: Determination of erythrocyte mean corpuscular volume (MCV)on 12-06-2021 MCV (RBC) [Entitic vol] 83.0 fL 80-94 [facility] Work Phone: Hematocrit Auto (Bld) [Volum e fraction]on 12-06-2021 Hematocrit (Bld) [Volume fraction] 42.1 % 40-54 [facility] Work Phone: INR in Blood by Coagulation assayon 12-06-2021 INR Coag (Bld) [Relative time] 3.3 {INR} [facility] Work Phone: Ketones Test strip Ql (U)on 12-06-2021 Ketones Ql (U) 5 mg/dl Negative [facility] Work Phone: Laboratory - Chemistry and C hemistry - challengeon 12-06-2021 CO2 [Moles/Vol] 24.0 mmol/L 21.0-32.0 [facility] Work Phone: Urea nitrogen/Creatinine [Mass ratio] 14.2 mg/mg 10-20 [facility] Work Phone: Laboratory - Coagulationon 0 12-06-2021 PT Coag (PPP) [Time] 32.9 s 11.7-14.9 [facility] Work Phone: Laboratory - Hematology and Cell countson 12-06-2021 Erythrocyte distribution width (RBC) [Entitic vol] 42.4 fL 35.1-43.9 [facility] Work Phone: Erythrocyte distribution width (RBC) [Ratio] 14.0 % 11.6-14.6 [facility] Work Phone: Immature granulocytes/100 WBC (Bld) 3.000 % 0.0-0.9 [facility] Work Phone: Comment on above: IG% - Immature Granu locytes (promyelocytes, myelocytes and metamyelocytes) > 1% indicates that a LEFT SHIFT is Present. MCH (RBC) [Entitic mass] 27.2 pg 27.0-32.0 [facility] Work Phone: Nucleated RBC/100 WBC (Bld) [Ratio] 0 % 0-5 [facility] Work Phone: MCHC Auto (RBC) [Mass/Vol]on 12-06-2021 MCHC (RBC) [Mass/Vol] 32.8 g/dL 32-36 [facility] Work Phone: Mucus LM Ql (Urine sed)on Mucus Ql (Urine sed) 0 SEEN /hpf [facility] Work Phone: Nitrite Test strip Ql (U)on 12-06-2021 Nitrite Ql (U) Negative Negative [facility] Work Phone: No Panel Informationon 12-06 Estimated Creatinine Clearance Calc 61.03 ml/min [facility] Work Phone: Estimated GFR (MDRD) Amer 76 mL/min >60 [facility] Work Phone: Comment on above: GFR Calc Estimated GFR (MDRD) Non-Af Amer 63 mL/min >60 [facility] Work Phone: Comment on above: Non- GFR Calc Troponin I High Sensitivity 5 pg/mL 3.0-78.0 [facility] Work Phone: Comment on above: Please Note: New Thania t Units and Gender Specific Reference Ranges. For more information see Policy Stat Procedure [place] High Sensitivity Troponin (TNIH) and attachments. SARS-CoV-2 & FLU Antigen (Rapid) SARS-CoV-2 (COVID 19) [facility] Work Phone: Platelets bldon 12-06-2021 Platelets (Bld) [#/Vol] 229 10*3/uL 150-450 [facility] Work Phone: Protein Test strip Ql (U)on 12-06-2021 Protein Ql (U) 30 mg/dl Negative [facility] Work Phone: Serum or plasma calcium antoine urement (mass/volume)on 12-06-2021 Calcium [Mass/Vol] 8.9 mg/dL 8.5-10.1 [facility] Work Phone: Serum or plasma creatinine m easurement (mass/volume)on 12-06-2021 Creatinine [Mass/Vol] 1.20 mg/dL 0.70-1.30 [facility] Work Phone: Comment on above: The validity of the calculated GFR & GFRAA in patients over 70 years has not been determined. Clinical correlation is essential. Serum or plasma urea nitroge n measurement (mass/volume)on 12-06-2021 Urea nitrogen [Mass/Vol] 17 mg/dL 7-18 [facility] Work Phone: Squamous epithelial cells de tection in urine sediment by light microscopyon 12-06-2021 Epithelial cells.squamous LM Ql (Urine sed) 0-5 SEEN /hpf 0-5 [facility] Work Phone: Thin prep Papanicolaou smear with manual screeningon 12-06-2021 Thin prep Papanicolaou smear with manual screening 9 5-15 [facility] Work Phone: Urine blood detectionon 11-13 RBC Ql (U) 10 /ul Negative [facility] Work Phone: RBC Ql (U) 0 SEEN /hpf 0-5 [facility] Work Phone: Urine clarityon 12-06-2021 Clarity (U) Clear Clear [facility] Work Phone: Urine color determinationon 12-06-2021 Color (U) Yellow Yellow [facility] Work Phone: Urine glucose detectionon Glucose Ql (U) 100 mg/dl Normal [facility] Work Phone: Urine leukocyte esterase det ection by dipstickon 12-06-2021 Leukocyte esterase Test strip Ql (U) 25 /ul Negative [facility] Work Phone: Urine pHon 12-06-2021 pH (U) 5.0 [pH] 5.0 - 8.0 [facility] Work Phone: Urine sediment bacteria coun t by microscopy (number/high power field)on 12-06-2021 Bacteria LM.HPF (Urine sed) [#/Area] 1 /[HPF] None Seen [facility] Work Phone: Urine specific gravity measu rementon 12-06-2021 Specific gravity (U) [Rel density] 1.025 1.002-1.03 0 [facility] Work Phone: Urobilinogen Auto test strip Ql (U)on 12-06-2021 Urobilinogen Ql (U) 1 mg/dl Normal [facility] Work Phone: GLUCOSE, BLOOD (POC)on 10-10 Glucose [Mass/Vol] 121 mg/dL Abnormal 74 - 99 mg/dL [facility] Glucose [Mass/Vol] 144 mg/dL Abnormal 74 - 99 mg/dL [facility] No Panel Informationon 10-10 [facility] CTA CHEST (GATED) W IVCONon 07-27-2021 CTA CHEST (GATED) W IVCON * * *Final Rep ort* * * DATE OF EXAM: Jul 27 2021 11:00AM [facility] 0125 - CTA CHEST (GATED) W IVCON [...] The arch vessel branching pattern is normal. 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 Cholelithiasis without findings of acute cholecystitis. Vending Service Technician: BLAKE Transcribe Date/Time: Jul 27 2021 11:21A Dictated by : BALBIR RAYGOZA MD This examination was interpreted and the report reviewed and electronically signed by: SADE (more content not included)... Normal [facility] - Microbiology an d Antimicrobial susceptibility Bacteria identified Cx Nom (Bld) No growth in 5 days. [facility] Work Phone: No Panel Information SARS-CoV-2 & FLU Antigen (Rapid) SARS-CoV-2 (COVID 19) [facility] Work Phone: Vital Signs Date Time Vital Sign Value Performing Clinician Jimi cheyenne 03-22-2025 09:51-0400 Body height 182.[address] Luis Caldera MD Work Phone: [facility] 03-22-2025 09:51-0400 Body mass index (BMI) [Ratio] 31.8 kg/m2 Dr. Luis Caldera MD Work Phone: [facility] 03-22-2025 09:51-0400 Body weight 106.[address] Luis Caldera MD Work Phone: [facility] 03-22-2025 09:51-0400 Diastolic blood pressure 64 mm[Hg] Dr. Luis Caldera MD Work Phone: 1(985)178-452734 [place] [address] 03-22-2025 09:51-0400 Heart rate 60 /min Dr. Luis Caldera MD Work Phone: 7(312)263-768634 [place] [address] 03-22-2025 09:51-0400 Respiratory rate 16 /min Dr. Luis Caldera MD Work Phone: 7(965)855-703334 [place] [address] 03-22-2025 09:51-0400 Systolic blood pressure 104 mm[Hg] Dr. Luis Caldera MD Work Phone: 8(350)855-244234 [place] [address] 03-03-2025 15:37-0400 Body temperature 97.2 [degF] Dr. Luis Caldera MD Work Phone: 7(021)604-313834 [place] [address] 03-03-2025 15:37-0400 Diastolic blood pressure 77 mm[Hg] Dr. Luis Caldera MD Work Phone: 4(309)302-961834 [place] [address] 03-03-2025 15:37-0400 Heart rate 63 /min Dr. Luis Caldera MD Work Phone: 1(088)614-559534 [place] [address] 03-03-2025 15:37-0400 Respiratory rate 16 /min Dr. Luis Caldera MD Work Phone: 1(475)244-745934 [place] [address] 03-03-2025 15:37-0400 SaO2% (BldA) [Mass fraction] 99 % Dr. Luis Caldera MD Work Phone: 5(752)276-457334 [place] [address] 03-03-2025 15:37-0400 Systolic blood pressure 141 mm[Hg] Dr. Luis Caldera MD Work Phone: 6(390)488-064634 [place] [address] 02-28-2025 00:00-0400 Heart rate 83 /min Dr. Luis Caldera MD Work Phone: 2(263)251-307934 [place] [address] 02-28-2025 00:00-0400 Respiratory rate 14 /min Dr. Luis Caldera MD Work Phone: 3(184)105-735334 [place] [address] 02-28-2025 00:00-0400 SaO2% (BldA) [Mass fraction] 96 % Dr. Luis Caldera MD Work Phone: 9(963)539-760448 [place] [address] 02-27-2025 22:00-0400 Diastolic blood pressure 76 mm[Hg] Dr. Luis Caldera MD Work Phone: 5(529)738-497134 [place] [address] 02-27-2025 22:00-0400 Systolic blood pressure 144 mm[Hg] Dr. Luis Caldera MD Work Phone: 9(093)079-643334 [place] [address] 02-27-2025 21:35-0400 Body temperature 98.2 [degF] Dr. Luis Caldera MD Work Phone: 3(459)801-200634 [place] [address] 02-27-2025 18:27-0400 Body height 182.[address] Luis Caldera MD Work Phone: 0(318)155-913734 [place] [address] 02-27-2025 18:27-0400 Body mass index (BMI) [Ratio] 34.1 kg/m2 Dr. Luis Caldera MD Work Phone: 7(571)673-094734 [place] [address] 02-27-2025 18:27-0400 Body weight 114.[address] Luis Caldera MD Work Phone: 2(147)829-082834 [place] [address] 02-11-2025 15:20-0400 Body temperature 98.4 [degF] Dr. Luis Caldera MD Work Phone: 9(113)460-395634 [place] [address] 02-11-2025 15:20-0400 Diastolic blood pressure 64 mm[Hg] Dr. Luis Caldera MD Work Phone: 8(903)319-780634 [place] [address] 02-11-2025 15:20-0400 Heart rate 61 /min Dr. Luis Caldera MD Work Phone: 7(204)718-748634 [place] [address] 02-11-2025 15:20-0400 Inhaled oxygen flow rate 2 L/min Dr. Luis Caldera MD Work Phone: 0(372)162-312234 [place] [address] 02-11-2025 15:20-0400 Respiratory rate 18 /min Dr. Luis Caldera MD Work Phone: 1(382)864-824334 [place] [address] 02-11-2025 15:20-0400 SaO2% (BldA) [Mass fraction] 96 % Dr. Luis Caldera MD Work Phone: 0(607)726-739134 [place] [address] 02-11-2025 15:20-0400 Systolic blood pressure 132 mm[Hg] Dr. Luis Caldera MD Work Phone: 4(565)562-394434 [place] [address] 02-11-2025 05:55-0400 Body mass index (BMI) [Ratio] 34.8 kg/m2 Dr. Luis Caldera MD Work Phone: 5(906)807-216934 [place] [address] 02-11-2025 05:55-0400 Body weight 116.[address] Luis Caldera MD Work Phone: 1(999)174-000834 [place] [address] 02-08-2025 12:01-0400 Body height 182.[address] Luis Caldera MD Work Phone: 2(930)530-002934 [place] [address] 02-03-2025 00:00-0400 Body temperature 99 [degF] Dr. Luis Caldera MD Work Phone: 3(991)845-553534 [place] [address] 02-03-2025 00:00-0400 Diastolic blood pressure 52 mm[Hg] Dr. Luis Caldera MD Work Phone: 1(282)915-567134 [place] [address] 02-03-2025 00:00-0400 Heart rate 68 /min Dr. Luis Caldera MD Work Phone: 4(603)838-994234 [place] [address] 02-03-2025 00:00-0400 Respiratory rate 20 /min Dr. Luis Caldera MD Work Phone: 0(215)316-373834 [place] [address] 02-03-2025 00:00-0400 SaO2% (BldA) [Mass fraction] 97 % Dr. Luis Caldera MD Work Phone: 5(191)465-666834 [place] [address] 02-03-2025 00:00-0400 Systolic blood pressure 127 mm[Hg] Dr. Luis Caldera MD Work Phone: 9(474)113-987934 [place] [address] 02-02-2025 19:42-0400 Body height 182.[address] Luis Caldera MD Work Phone: 0(674)468-798634 [place] [address] 02-02-2025 19:42-0400 Body mass index (BMI) [Ratio] 35.7 kg/m2 Dr. Luis Caldera MD Work Phone: 6(177)844-197934 [place] [address] 02-02-2025 19:42-0400 Body weight 119.[address] Luis Caldera MD Work Phone: 8(082)443-660934 [place] [address] 02-02-2025 19:42-0400 Inhaled oxygen flow rate 15 L/min Dr. Luis Caldera MD Work Phone: 1(504)804-935034 [place] [address] 10-12-2024 13:12-0400 Body height 182.[address] Luis Caldera MD Work Phone: 3(060)508-423834 [place] [address] 10-12-2024 13:12-0400 Body mass index (BMI) [Ratio] 32.3 kg/m2 Dr. Luis Caldera MD Work Phone: 4(893)612-520034 [place] [address] 10-12-2024 13:12-0400 Body weight 107.[address] Luis Caldera MD Work Phone: 7(148)535-121634 [place] [address] 10-12-2024 13:12-0400 Diastolic blood pressure 57 mm[Hg] Dr. Luis Caldera MD Work Phone: 2(128)262-967034 [place] [address] 10-12-2024 13:12-0400 Heart rate 65 /min Dr. Luis Caldera MD Work Phone: 1(280)421-737434 [place] [address] 10-12-2024 13:12-0400 Respiratory rate 18 /min Dr. Luis Caldera MD Work Phone: 5(326)617-338234 [place] [address] 10-12-2024 13:12-0400 SaO2% (BldA) [Mass fraction] 99 % Dr. Luis Caldera MD Work Phone: 7(030)507-866634 [place] [address] 10-12-2024 13:12-0400 Systolic blood pressure 117 mm[Hg] Dr. Luis Caldera MD Work Phone: 9(208)045-846234 [place] [address] 10-07-2023 14:18-0400 Body height 182.[address] Luis Caldera Work Phone: 4(283)254-083034 [place] [address] 10-07-2023 14:18-0400 Body mass index (BMI) [Ratio] 29.8 kg/m2 Dr. Luis Caldera Work Phone: 6(943)113-050034 [place] [address] 10-07-2023 14:18-0400 Body weight 99.[address] Luis Caldera Work Phone: 5(388)234-031534 [place] [address] 10-07-2023 14:18-0400 Diastolic blood pressure 66 mm[Hg] Dr. Luis Caldera Work Phone: 0(843)872-607134 [place] [address] 10-07-2023 14:18-0400 Heart rate 67 /min Dr. Luis Caldera Work Phone: 9(352)400-768834 [place] [address] 10-07-2023 14:18-0400 Respiratory rate 16 /min Dr. Luis Caldera Work Phone: 5(556)722-669234 [place] [address] 10-07-2023 14:18-0400 Systolic blood pressure 112 mm[Hg] Dr. Luis Caldera Work Phone: 2(893)582-770234 [place] [address] 06-03-2023 12:50-0500 Body temperature 97.2 [degF] Dr. Luis Caldera Work Phone: 0(151)426-563934 [place] [address] 06-03-2023 12:50-0500 Diastolic blood pressure 90 mm[Hg] Dr. Luis Caldera Work Phone: 1(892)423-294634 [place] [address] 06-03-2023 12:50-0500 Heart rate 85 /min Dr. Luis Caldera Work Phone: 4(954)058-488534 [place] [address] 06-03-2023 12:50-0500 Respiratory rate 16 /min Dr. Luis Caldera Work Phone: 6(638)099-234034 [place] [address] 06-03-2023 12:50-0500 SaO2% (BldA) [Mass fraction] 97 % Dr. Luis Caldera Work Phone: [facility] 06-03-2023 12:50-0500 Systolic blood pressure 134 mm[Hg] Dr. Luis Caldera Work Phone: [facility] 06-03-2023 11:45-0500 Body height 182.[address] Luis Caldera Work Phone: [facility] 06-03-2023 11:45-0500 Body mass index (BMI) [Ratio] 30.5 kg/m2 Dr. Luis Caldera Work Phone: [facility] 06-03-2023 11:45-0500 Body weight 102.[address] Luis Caldera Work Phone: [facility] 03-27-2023 13:51-0400 Body height 185.[address] Maggy Roberts Work Phone: [facility] 03-27-2023 13:51-0400 Body mass index (BMI) [Ratio] 34.7 kg/m2 Dr. Maggy Roberts Work Phone: [facility] 03-27-2023 13:51-0400 Body weight 119.[address] Maggy Roberts Work Phone: [facility] 03-27-2023 13:51-0400 Diastolic blood pressure 78 mm[Hg] Dr. Maggy Roberts Work Phone: [facility] 03-27-2023 13:51-0400 Heart rate 97 /min Dr. Maggy Roberts Work Phone: [facility] 03-27-2023 13:51-0400 Respiratory rate 18 /min Dr. Maggy Roberts Work Phone: [facility] 03-27-2023 13:51-0400 SaO2% (BldA) [Mass fraction] 98 % Dr. Maggy Roberts Work Phone: [facility] 03-27-2023 13:51-0400 Systolic blood pressure 118 mm[Hg] Dr. Maggy Roberts Work Phone: 0(546)322-017440 [place] [address] 02-13-2023 15:02-0400 Body temperature 97 [degF] Dr. Maggy Roberts Work Phone: 0(313)270-174847 [place] [address] 02-13-2023 15:02-0400 Diastolic blood pressure 70 mm[Hg] Dr. Maggy Roberts Work Phone: 3(964)907-959147 [place] [address] 02-13-2023 15:02-0400 Heart rate 82 /min Dr. Maggy Roberts Work Phone: 6(484)481-810447 [place] [address] 02-13-2023 15:02-0400 Respiratory rate 16 /min Dr. Maggy Roberts Work Phone: 3(141)525-959247 [place] [address] 02-13-2023 15:02-0400 SaO2% (BldA) [Mass fraction] 100 % Dr. Maggy Roberts Work Phone: 7(530)091-567947 [place] [address] 02-13-2023 15:02-0400 Systolic blood pressure 134 mm[Hg] Dr. Maggy Roberts Work Phone: 4(390)116-219247 [place] [address] 02-12-2023 13:33-0400 Body height 185.[address] Maggy Roberts Work Phone: 7(533)816-326647 [place] [address] 02-12-2023 13:33-0400 Body weight 102.[address] Maggy Roberts Work Phone: 8(810)843-983847 [place] [address] 02-11-2023 20:45-0400 Body mass index (BMI) [Ratio] 30 kg/m2 Dr. Maggy Roberts Work Phone: 3(735)332-746247 [place] [address] 02-11-2023 18:53-0400 Body temperature 99.1 [degF] Dr. Maggy Roberts Work Phone: 6(385)557-178147 [place] [address] 02-11-2023 18:53-0400 Diastolic blood pressure 71 mm[Hg] Dr. Maggy Roberts Work Phone: 7(297)623-424047 [place] [address] 02-11-2023 18:53-0400 Heart rate 88 /min Dr. Maggy Roberts Work Phone: [facility] 02-11-2023 18:53-0400 Respiratory rate 18 /min Dr. Maggy Roberts Work Phone: 0(877)152-405240 [place] [address] 02-11-2023 18:53-0400 SaO2% (BldA) [Mass fraction] 93 % Dr. Maggy Roberts Work Phone: [facility] 02-11-2023 18:53-0400 Systolic blood pressure 129 mm[Hg] Dr. Maggy Roberts Work Phone: 0(425)947-912447 [place] [address] 02-11-2023 16:21-0400 Body height 185.[address] Maggy Roberts Work Phone: 7(679)377-353247 [place] [address] 02-11-2023 00:58-0400 Body temperature 98.4 [degF] Dr. Maggy Roberts Work Phone: 2(473)840-886747 [place] [address] 02-11-2023 00:58-0400 Diastolic blood pressure 62 mm[Hg] Dr. Maggy Roberts Work Phone: 4(672)993-288340 [place] [address] 02-11-2023 00:58-0400 Heart rate 74 /min Dr. Maggy Roberts Work Phone: 7(944)863-938240 [place] [address] 02-11-2023 00:58-0400 Respiratory rate 26 /min Dr. Maggy Roberts Work Phone: [facility] 02-11-2023 00:58-0400 SaO2% (BldA) [Mass fraction] 95 % Dr. Maggy Roberts Work Phone: [facility] 02-11-2023 00:58-0400 Systolic blood pressure 124 mm[Hg] Dr. Maggy Roberts Work Phone: 1(501)632-338247 [place] [address] 02-10-2023 21:23-0400 Body height 185.[address] Maggy Roberts Work Phone: 6(829)871-364440 [place] [address] 02-10-2023 21:23-0400 Body mass index (BMI) [Ratio] 30.9 kg/m2 Dr. Maggy Roberts Work Phone: [facility] 02-10-2023 21:23-0400 Body weight 106.[address] Maggy Roberts Work Phone: 1(205)878-644040 [place] [address] 02-05-2023 15:10-0400 Body temperature 97.4 [degF] Dr. Maggy Roberts Work Phone: 9(049)733-700847 [place] [address] 02-05-2023 15:10-0400 Diastolic blood pressure 77 mm[Hg] Dr. Maggy Roberts Work Phone: 3(635)472-547947 [place] [address] 02-05-2023 15:10-0400 Heart rate 85 /min Dr. Maggy Roberts Work Phone: 4(407)150-548247 [place] [address] 02-05-2023 15:10-0400 Respiratory rate 18 /min Dr. Maggy Roberts Work Phone: 1(546)770-061247 [place] [address] 02-05-2023 15:10-0400 SaO2% (BldA) [Mass fraction] 94 % Dr. Maggy Roberts Work Phone: 0(448)951-042168 [address] 02-05-2023 15:10-0400 Systolic blood pressure 131 mm[Hg] Dr. Maggy Roberts Work Phone: [facility] 02-05-2023 05:36-0400 Body mass index (BMI) [Ratio] 30.6 kg/m2 Dr. Maggy Roberts Work Phone: 9(556)707-627740 [place] [address] 02-05-2023 05:36-0400 Body weight 105.[address] Maggy Roberts Work Phone: 0(535)479-137740 [place] [address] 02-01-2023 00:17-0400 Inhaled oxygen flow rate 2 L/min Dr. Maggy Roberts Work Phone: [facility] 01-27-2023 21:04-0400 Body temperature 98.1 [degF] Dr. Maggy Roberts Work Phone: 2(058)074-172640 [place] [address] 01-27-2023 21:04-0400 Diastolic blood pressure 48 mm[Hg] Dr. Maggy Roberts Work Phone: [facility] 01-27-2023 21:04-0400 Heart rate 79 /min Dr. Maggy Roberts Work Phone: 5(516)986-584940 [place] [address] 01-27-2023 21:04-0400 Respiratory rate 16 /min Dr. Maggy Roberts Work Phone: 8(189)727-807340 [place] [address] 01-27-2023 21:04-0400 SaO2% (BldA) [Mass fraction] 94 % Dr. Maggy Roberts Work Phone: 9(576)240-528540 [place] [address] 01-27-2023 21:04-0400 Systolic blood pressure 111 mm[Hg] Dr. Maggy Roberts Work Phone: 1(739)454-402540 [place] [address] 01-27-2023 17:58-0400 Body height 185.[address] Maggy Roberts Work Phone: 7(731)055-225947 [place] [address] 01-27-2023 17:58-0400 Body mass index (BMI) [Ratio] 30.5 kg/m2 Dr. Maggy Roberts Work Phone: 5(470)032-809840 [place] [address] 01-27-2023 17:58-0400 Body weight [address] Maggy Roberts Work Phone: [facility] 01-26-2023 14:13-0400 Body temperature 98.6 [degF] Dr. Maggy Roberts Work Phone: [facility] 01-26-2023 14:13-0400 Diastolic blood pressure 46 mm[Hg] Dr. Maggy Roberts Work Phone: 0(764)262-847540 [place] [address] 01-26-2023 14:13-0400 Heart rate 60 /min Dr. Maggy Roberts Work Phone: 7(658)785-486640 [place] [address] 01-26-2023 14:13-0400 Respiratory rate 18 /min Dr. Maggy Roberts Work Phone: 6(563)866-392940 [place] [address] 01-26-2023 14:13-0400 SaO2% (BldA) [Mass fraction] 97 % Dr. Maggy Roberts Work Phone: [facility] 01-26-2023 14:13-0400 Systolic blood pressure 134 mm[Hg] Dr. Maggy Roberts Work Phone: [facility] 01-25-2023 05:27-0400 Body mass index (BMI) [Ratio] 28.2 kg/m2 Dr. Maggy Roberts Work Phone: 5(400)077-324540 [place] [address] 01-25-2023 05:27-0400 Body weight 96.[address] Maggy Roberts Work Phone: 0(176)265-129240 [place] [address] 01-24-2023 16:00-0400 Inhaled oxygen flow rate 93 L/min Dr. Maggy Roberts Work Phone: [facility] 01-23-2023 14:42-0400 Body height 185.[address] Maggy Roberts Work Phone: [facility] 01-21-2023 11:32-0400 Body temperature 97.8 [degF] Dr. Maggy Roberts Work Phone: [facility] 01-21-2023 11:32-0400 Diastolic blood pressure 55 mm[Hg] Dr. Maggy Roberts Work Phone: [facility] 01-21-2023 11:32-0400 Heart rate 83 /min Dr. Maggy Roberts Work Phone: [facility] 01-21-2023 11:32-0400 Respiratory rate 23 /min Dr. Maggy Roberts Work Phone: [facility] 01-21-2023 11:32-0400 SaO2% (BldA) [Mass fraction] 93 % Dr. Maggy Roberts Work Phone: [facility] 01-21-2023 11:32-0400 Systolic blood pressure 133 mm[Hg] Dr. Maggy Roberts Work Phone: [facility] 01-21-2023 08:21-0400 Body height 185.[address] Maggy Roberts Work Phone: [phone] [place] [address] 01-21-2023 08:21-0400 Body mass index (BMI) [Ratio] 28.9 kg/m2 Dr. Maggy Roberts Work Phone: [phone] [place] [address] 01-21-2023 08:21-0400 Body weight 99.[address] Maggy Roberts Work Phone: [phone] [address] 01-08-2023 11:58-0400 Body temperature 98.3 [degF] Dr. Maggy Roberts Work Phone: 8(790)[phone] [place] [address] 01-08-2023 11:58-0400 Diastolic blood pressure 70 mm[Hg] Dr. Maggy Roberts Work Phone: 2(452)720-646168 [address] 01-08-2023 11:58-0400 Heart rate 60 /min Dr. Maggy Roberts Work Phone: 6(098)[phone] [place] [address] 01-08-2023 11:58-0400 Respiratory rate 14 /min Dr. Maggy Roberts Work Phone: 2(025)[phone] [place] [address] 01-08-2023 11:58-0400 SaO2% (BldA) [Mass fraction] 96 % Dr. Maggy Roberts Work Phone: 6(062)[phone] [place] [address] 01-08-2023 11:58-0400 Systolic blood pressure 108 mm[Hg] Dr. Maggy Roberts Work Phone: 0(915)[phone] [place] [address] 01-08-2023 06:00-0400 Body mass index (BMI) [Ratio] 38.4 kg/m2 Dr. Maggy Roberts Work Phone: 2(693)[phone] [place] [address] 01-08-2023 06:00-0400 Body weight [address] Maggy Roberts Work Phone: 7(765)[phone] [place] [address] 01-04-2023 17:25-0400 Diastolic blood pressure 63 mm[Hg] [facility] 01-04-2023 17:25-0400 Heart rate 63 /min [facility] 01-04-2023 17:25-0400 Respiratory rate 12 /min [facility] 01-04-2023 17:25-0400 SaO2% (BldA) [Mass fraction] 98 % [facility] 01-04-2023 17:25-0400 Systolic blood pressure 138 mm[Hg] [facility] 01-04-2023 16:19-0400 Body temperature 96.9 [degF] [facility] 01-04-2023 11:15-0400 Body mass index (BMI) [Ratio] 30.4 kg/m2 [facility] 01-04-2023 11:15-0400 Body weight 104.7 kg [facility] 01-04-2023 10:59-0400 Body height 185.42 cm [facility] 09-07-2022 11:01-0500 Body height 185.4 cm Jojo Kaur MD Work Phone: [facility] 09-07-2022 11:01-0500 Body weight 113.4 kg Jojo Kaur MD Work Phone: [facility] 09-07-2022 11:01-0500 Diastolic blood pressure 57 mm[Hg] Jojo Kaur MD Work Phone: [facility] 09-07-2022 11:01-0500 Heart rate 64 /min Jojo Kaur MD Work Phone: [facility] 09-07-2022 11:01-0500 Respiratory rate 16 /min Jojo Kaur MD Work Phone: [facility] 09-07-2022 11:01-0500 SaO2% (BldA) [Mass fraction] 99 % Jojo Kaur MD Work Phone: [facility] 09-07-2022 11:01-0500 Systolic blood pressure 124 mm[Hg] Jojo Kaur MD Work Phone: [facility] 08-09-2022 16:35-0500 Body weight 113.4 kg Abdulaziz Caldera MD Work Phone: [facility] 08-09-2022 16:35-0500 Diastolic blood pressure 62 mm[Hg] Abdulaziz Caldera MD Work Phone: [facility] 08-09-2022 16:35-0500 Heart rate 64 /min Abdulaziz Caldera MD Work Phone: [facility] 08-09-2022 16:35-0500 Respiratory rate 16 /min Abdulaziz Caldera MD Work Phone: [facility] 08-09-2022 16:35-0500 SaO2% (BldA) [Mass fraction] 96 % Abdulaziz Caldera MD Work Phone: [facility] 08-09-2022 16:35-0500 Systolic blood pressure 112 mm[Hg] Abdulaziz Caldera MD Work Phone: [facility] 07-11-2022 16:22-0500 Body temperature 97.9 [degF] Dr. Luis Caldera Work Phone: [facility] Work Phone: 07-11-2022 16:22-0500 Diastolic blood pressure 65 mm[Hg] Dr. Luis Caldera Work Phone: [facility] Work Phone: 07-11-2022 16:22-0500 Heart rate 75 /min Dr. Luis Caldera Work Phone: [facility] Work Phone: 07-11-2022 16:22-0500 Respiratory rate 17 /min Dr. Luis Caldera Work Phone: [facility] Work Phone: 07-11-2022 16:22-0500 SaO2% (BldA) [Mass fraction] 96 % Dr. Luis Caldera Work Phone: [facility] Work Phone: 07-11-2022 16:22-0500 Systolic blood pressure 114 mm[Hg] Dr. Luis Caldera Work Phone: [facility] Work Phone: 07-11-2022 03:04-0500 Body weight 114.[address] Luis Caldera Work Phone: [facility] Work Phone: 07-10-2022 14:29-0500 Body height 185.[address] Luis Caldera Work Phone: [facility] Work Phone: 07-10-2022 03:04-0500 Body mass index (BMI) [Ratio] 33.6 kg/m2 Dr. Luis Caldera Work Phone: [facility] Work Phone: 07-09-2022 21:17-0500 Inhaled oxygen flow rate 97 L/min Dr. Luis Caldera Work Phone: [facility] Work Phone: 04-17-2022 11:23-0400 Body height 185.4 cm Jojo Kaur MD Work Phone: [facility] 04-17-2022 11:23-0400 Body weight 114.31 kg Jojo Kaur MD Work Phone: [facility] 04-17-2022 11:23-0400 Diastolic blood pressure 71 mm[Hg] Jojo Kaur MD Work Phone: [facility] 04-17-2022 11:23-0400 Heart rate 72 /min Jojo Kaur MD Work Phone: [facility] 04-17-2022 11:23-0400 Respiratory rate 18 /min Jojo Kaur MD Work Phone: [facility] 04-17-2022 11:23-0400 SaO2% (BldA) [Mass fraction] 98 % Jojo Kaur MD Work Phone: [facility] 04-17-2022 11:23-0400 Systolic blood pressure 116 mm[Hg] Jojo Kaur MD Work Phone: [facility] 04-16-2022 13:09-0400 Body height 185.4 cm Abdulaziz Caldera MD Work Phone: [facility] 04-16-2022 13:09-0400 Body weight 114.31 kg Abdulaziz Caldera MD Work Phone: [facility] 04-16-2022 13:09-0400 Diastolic blood pressure 72 mm[Hg] Abdulaziz Caldera MD Work Phone: [facility] 04-16-2022 13:09-0400 Heart rate 70 /min Abdulaziz Caldera MD Work Phone: [facility] 04-16-2022 13:09-0400 Respiratory rate 16 /min Abdulaziz Caldera MD Work Phone: [facility] 04-16-2022 13:09-0400 SaO2% (BldA) [Mass fraction] 98 % Abdulaziz Caldera MD Work Phone: [facility] 04-16-2022 13:09-0400 Systolic blood pressure 132 mm[Hg] Abdulaziz Caldera MD Work Phone: [facility] 04-06-2022 09:36-0400 Body weight 114.31 kg Roselia Podlogar VICE PRESIDENT OF CUSTOMER SERVICE.DAMAGE APPRAISER Work Phone: [facility] 04-06-2022 09:36-0400 Diastolic blood pressure 62 mm[Hg] Roselia Podlogar VICE PRESIDENT OF CUSTOMER SERVICE.DAMAGE APPRAISER Work Phone: [facility] 04-06-2022 09:36-0400 Heart rate 62 /min Roselia Podlogar VICE PRESIDENT OF CUSTOMER SERVICE.DAMAGE APPRAISER Work Phone: [facility] 04-06-2022 09:36-0400 Respiratory rate 16 /min Roselia Podlogar VICE PRESIDENT OF CUSTOMER SERVICE.DAMAGE APPRAISER Work Phone: [facility] 04-06-2022 09:36-0400 SaO2% (BldA) [Mass fraction] 97 % Roselia Podlogar VICE PRESIDENT OF CUSTOMER SERVICE.DAMAGE APPRAISER Work Phone: [facility] 04-06-2022 09:36-0400 Systolic blood pressure 112 mm[Hg] Roselia Madrigal APRN.DAMAGE APPRAISER Work Phone: [facility] 03-07-2022 11:12-0400 Body weight 114.76 kg Abdulaziz Caldera MD Work Phone: [facility] 03-07-2022 11:12-0400 Diastolic blood pressure 70 mm[Hg] Abdulaziz Caldera MD Work Phone: [facility] 03-07-2022 11:12-0400 Heart rate 64 /min Abdulaziz Caldera MD Work Phone: [facility] 03-07-2022 11:12-0400 Respiratory rate 16 /min Abdulaziz Caldera MD Work Phone: [facility] 03-07-2022 11:12-0400 Systolic blood pressure 118 mm[Hg] Abdulaziz Caldera MD Work Phone: [facility] 03-05-2022 12:00-0400 Diastolic blood pressure 60 mm[Hg] David Lemon PT [facility] 03-05-2022 12:00-0400 Systolic blood pressure 112 mm[Hg] David Lemon PT [facility] 03-02-2022 19:48-0400 Diastolic blood pressure 79 mm[Hg] Dr. Luis Caldera Work Phone: [facility] Work Phone: 03-02-2022 19:48-0400 Heart rate 77 /min Dr. Luis Caldera Work Phone: [facility] Work Phone: 03-02-2022 19:48-0400 SaO2% (BldA) [Mass fraction] 97 % Dr. Luis Caldera Work Phone: [facility] Work Phone: 03-02-2022 19:48-0400 Systolic blood pressure 131 mm[Hg] Dr. Luis Caldera Work Phone: [facility] Work Phone: 03-02-2022 18:12-0400 Respiratory rate 17 /min Dr. Luis Caldera Work Phone: [facility] Work Phone: 03-02-2022 14:22-0400 Body height 185.[address] Luis Caldera Work Phone: [facility] Work Phone: 03-02-2022 14:22-0400 Body mass index (BMI) [Ratio] 32.3 kg/m2 Dr. Luis Caldera Work Phone: [facility] Work Phone: 03-02-2022 14:22-0400 Body temperature 98.9 [degF] Dr. Luis Caldera Work Phone: [facility] Work Phone: 03-02-2022 14:22-0400 Body weight 111.[address] Luis Caldera Work Phone: [facility] Work Phone: 01-12-2022 08:00-0400 Diastolic blood pressure 78 mm[Hg] David Lemon PT [facility] 01-12-2022 08:00-0400 Systolic blood pressure 130 mm[Hg] David Lemon PT [facility] 01-05-2022 09:56-0400 Body height 185.4 cm Jojo Kaur MD Work Phone: [facility] 01-05-2022 09:56-0400 Body weight 111.58 kg Jojo Kaur MD Work Phone: [facility] 01-05-2022 09:56-0400 Diastolic blood pressure 62 mm[Hg] Jojo Kaur MD Work Phone: [facility] 01-05-2022 09:56-0400 Heart rate 58 /min Jojo Kaur MD Work Phone: [facility] 01-05-2022 09:56-0400 Respiratory rate 16 /min Jojo Kaur MD Work Phone: [facility] 01-05-2022 09:56-0400 SaO2% (BldA) [Mass fraction] 97 % Jojo Kaur MD Work Phone: [facility] 01-05-2022 09:56-0400 Systolic blood pressure 117 mm[Hg] Jojo Kaur MD Work Phone: [facility] 01-01-2022 10:12-0400 Body temperature 97.39 [degF] Abdulaziz Caldera MD Work Phone: [facility] 01-01-2022 10:12-0400 Body weight 111.77 kg Abdulaziz Caldera MD Work Phone: [facility] 01-01-2022 10:12-0400 Diastolic blood pressure 64 mm[Hg] Abdulaziz Caldera MD Work Phone: [facility] 01-01-2022 10:12-0400 Heart rate 47 /min Abdulaziz Caldera MD Work Phone: [facility] 01-01-2022 10:12-0400 Respiratory rate 18 /min Abdulaziz Caldera MD Work Phone: [facility] 01-01-2022 10:12-0400 SaO2% (BldA) [Mass fraction] 98 % Abdulaziz Caldera MD Work Phone: [facility] 01-01-2022 10:12-0400 Systolic blood pressure 112 mm[Hg] Abdulaziz Caldera MD Work Phone: [facility] 01-01-2022 08:55-0400 Body weight 112.49 kg Justina Monique APRN.DAMAGE APPRAISER Work Phone: [facility] 01-01-2022 08:55-0400 Diastolic blood pressure 74 mm[Hg] Justina Monique APRN.DAMAGE APPRAISER Work Phone: [facility] 01-01-2022 08:55-0400 Heart rate 60 /min Justina Monique APRN.DAMAGE APPRAISER Work Phone: [facility] 01-01-2022 08:55-0400 Respiratory rate 18 /min Justinaeric Monique APRN.DAMAGE APPRAISER Work Phone: [facility] 01-01-2022 08:55-0400 Systolic blood pressure 147 mm[Hg] Justina Monique APRN.DAMAGE APPRAISER Work Phone: [facility] 12-29-2021 08:54-0400 Heart rate 69 /min Dr. Luis Caldera Work Phone: [facility] Work Phone: 12-29-2021 08:50-0400 Body temperature 97.7 [degF] Dr. Luis Caldera Work Phone: [facility] Work Phone: 12-29-2021 08:50-0400 Diastolic blood pressure 68 mm[Hg] Dr. Luis Caldera Work Phone: [facility] Work Phone: 12-29-2021 08:50-0400 Respiratory rate 18 /min Dr. Luis Caldera Work Phone: [facility] Work Phone: 12-29-2021 08:50-0400 SaO2% (BldA) [Mass fraction] 96 % Dr. Luis Caldera Work Phone: [facility] Work Phone: 12-29-2021 08:50-0400 Systolic blood pressure 139 mm[Hg] Dr. Luis Caldera Work Phone: [facility] Work Phone: 12-27-2021 22:36-0400 Body height 185.[address] Luis Caldera Work Phone: [facility] Work Phone: 12-27-2021 22:36-0400 Body mass index (BMI) [Ratio] 32.8 kg/m2 Dr. Luis Caldera Work Phone: [facility] Work Phone: 12-27-2021 22:36-0400 Body weight 112.[address] Luis Caldera Work Phone: [facility] Work Phone: 12-27-2021 21:22-0400 Diastolic blood pressure 71 mm[Hg] DR MELANIA WORKMAN MD [facility] 12-27-2021 21:22-0400 Heart rate 73 /min DR MELANIA WORKMAN MD [facility] 12-27-2021 21:22-0400 Respiratory rate 24 /min DR MELANIA WORKMAN MD [facility] 12-27-2021 21:22-0400 Systolic blood pressure 121 mm[Hg] DR MELANIA WORKMAN MD [facility] 12-27-2021 20:06-0400 Diastolic blood pressure 59 mm[Hg] DR MELANIA WORKMAN MD [facility] 12-27-2021 20:06-0400 Heart rate 80 /min DR MELANIA WORKMAN MD [facility] 12-27-2021 20:06-0400 Respiratory rate 26 /min DR MELANIA WORKMAN MD [facility] 12-27-2021 20:06-0400 Systolic blood pressure 112 mm[Hg] DR MELANIA WORKMAN MD [facility] 12-27-2021 19:19-0400 Body temperature 98.6 [degF] DR MELANIA WORKMAN MD [facility] 12-27-2021 19:19-0400 Diastolic blood pressure 76 mm[Hg] DR MELANIA WORKMAN MD [facility] 12-27-2021 19:19-0400 Heart rate 82 /min DR MELANIA WORKMAN MD [facility] 12-27-2021 19:19-0400 Respiratory rate 26 /min DR MELANIA WORKMAN MD [facility] 12-27-2021 19:19-0400 Systolic blood pressure 138 mm[Hg] DR MELANIA WORKMAN MD [facility] 12-27-2021 17:36-0400 Body temperature 102.56 [degF] DR MELANIA WORKMAN MD [facility] 12-27-2021 17:36-0400 Body weight [address] MELANIA WORKMAN MD [facility] 12-27-2021 17:36-0400 Heart rate 104 /min DR MELANIA WORKMAN MD [facility] 12-14-2021 15:10-0400 Body temperature 98.2 [degF] Abdulaziz Caldera MD Work Phone: [facility] 12-14-2021 15:10-0400 Body weight 110.77 kg Abdulaziz Caldera MD Work Phone: [facility] 12-14-2021 15:10-0400 Diastolic blood pressure 70 mm[Hg] Abdulaziz Caldera MD Work Phone: [facility] 12-14-2021 15:10-0400 Heart rate 54 /min Abdulaziz Caldera MD Work Phone: [facility] 12-14-2021 15:10-0400 Respiratory rate 16 /min Abdulaziz Caldera MD Work Phone: [facility] 12-14-2021 15:10-0400 SaO2% (BldA) [Mass fraction] 96 % Abdulaziz Caldera MD Work Phone: [facility] 12-14-2021 15:10-0400 Systolic blood pressure 130 mm[Hg] Abdulaziz Caldera MD Work Phone: [facility] 12-08-2021 16:23-0400 Diastolic blood pressure 64 mm[Hg] Abdulaziz Caldera MD Work Phone: [facility] 12-08-2021 16:23-0400 Heart rate 85 /min Abdulaziz Caldera MD Work Phone: [facility] 12-08-2021 16:23-0400 Systolic blood pressure 110 mm[Hg] Abdulaziz Caldera MD Work Phone: [facility] 12-07-2021 00:58-0400 SaO2% (BldA) [Mass fraction] 97 % [facility] Work Phone: 12-06-2021 22:59-0400 Body height 185.42 cm [facility] Work Phone: 12-06-2021 22:59-0400 Body mass index (BMI) [Ratio] 33.6 kg/m2 [facility] Work Phone: 12-06-2021 22:59-0400 Body temperature 97.7 [degF] [facility] Work Phone: 12-06-2021 22:59-0400 Body weight 115.66 kg [facility] Work Phone: 12-06-2021 22:59-0400 Diastolic blood pressure 78 mm[Hg] [facility] Work Phone: 12-06-2021 22:59-0400 Heart rate 90 /min [facility] Work Phone: 12-06-2021 22:59-0400 Respiratory rate 16 /min [facility] Work Phone: 12-06-2021 22:59-0400 Systolic blood pressure 149 mm[Hg] [facility] Work Phone: 10-23-2021 13:05-0400 Body temperature 97.3 [degF] Marcella [place] PA-C Work Phone: [facility] 10-23-2021 13:05-0400 Body weight 114.58 kg Marcella [place] PA-C Work Phone: [facility] 10-23-2021 13:05-0400 Diastolic blood pressure 56 mm[Hg] Marcella [place] PA-C Work Phone: [facility] 10-23-2021 13:05-0400 Heart rate 85 /min Marcella [place] PA-C Work Phone: [facility] 10-23-2021 13:05-0400 SaO2% (BldA) [Mass fraction] 98 % Marcella Xavier PA-C Work Phone: [facility] 10-23-2021 13:05-0400 Systolic blood pressure 132 mm[Hg] Marcella [place] PA-C Work Phone: [facility] 10-10-2021 10:07-0400 Diastolic blood pressure 68 mm[Hg] Richard Jones MD Work Phone: [facility] 10-10-2021 10:07-0400 Heart rate 69 /min Richard Jones MD Work Phone: [facility] 10-10-2021 10:07-0400 Respiratory rate 16 /min Richard Jones MD Work Phone: [facility] 10-10-2021 10:07-0400 SaO2% (BldA) [Mass fraction] 98 % Richard Jones MD Work Phone: [facility] 10-10-2021 10:07-0400 Systolic blood pressure 150 mm[Hg] Richard Jones MD Work Phone: [facility] 10-10-2021 08:01-0400 Body temperature 97 [degF] Richard Jones MD Work Phone: [facility] Encounters Encounter Date Encounter Type Care Provider Facility Start: 05-24-2025 ambulatory Walter Deperro OLS Facili ty:[facility] Start: 05-11-2025 End: 05-11-[address] [facility] Facility[place] Start: 05-03-2025 ambulatory Walter Deperro OLS Facili ty:[facility] Start: 05-01-2025 ambulatory Walter Deperro Sr. Facili ty:[facility] Start: 04-29-2025 ambulatory Walter Deperro OLS Facili ty:[facility] Start: 04-09-2025 ambulatory Walter Deperro OLS Facili ty:[facility] Start: 03-22-2025 End: 03-22-2025 Debi Rashard [facility] Work Phone: Start: 03-22-2025 End: 03-22-[address] Luis Caldera MD Work Phone: -[facility] Start: 03-22-2025 End: 03-22-[address] Luis Caldera MD Work Phone: -[facility] Start: 03-22-2025 End: 03-22-2025 Deangelo LOONEY -[facility] Work Phone: Start: 03-16-2025 End: 03-16-[address] Luis Caldera MD Work Phone: -Cardiovascular Services Start: 03-16-2025 End: 03-16-2025 Dr. Aneesh Ac MD -[facility] Start: 03-16-2025 End: 03-16-2025 ambulatory Meghana Cole Facility:[facility] Start: 03-03-2025 End: 03-03-[address] Luis Caldera MD Work Phone: -[facility] Start: 03-03-2025 End: 03-03-2025 Meghana Cole [place] -[facility] Work Phone: Start: 02-27-2025 End: 02-28-2025 Dr. Luis Caldera MD Work Phone: -Emergency Department Work Phone: Start: 02-27-2025 End: 02-28-2025 Emergency department patient visit Dr. Luis Caldera MD Work Phone: -Emergency Department Start: 02-26-2025 ambulatory Kuldip Haigler Facility:[facility] Start: 02-26-2025 Walter eBcker MD -[facility] Start: 02-25-2025 ambulatory Kuldip Harjeet Facility:[facility] Start: 02-25-2025 Walter Becker MD -[facility] Start: 02-22-2025 ambulatory Matthews Haigler Facility:[facility] [place] Start: 02-22-2025 Walter Becker MD -[facility] Start: 02-18-2025 ambulatory Kuldip Haigler Facility:[facility] Start: 02-18-2025 Walter eBcker MD -[facility] Start: 02-17-2025 ambulatory Kuldip Haigler Facility:[facility] Start: 02-17-2025 Walter Becker MD -[facility] Start: 02-16-2025 ambulatory Kuldip Haigler Facility:[facility] Start: 02-16-2025 [facility] Start: 02-15-2025 ambulatory Kuldip Haigler Facility:[facility] Start: 02-15-2025 Walter Becker MD -[facility] Start: 02-11-2025 Dr. uHgo Cervantes MD [facility] Work Phone: Start: 02-10[facility]2025 [facility] Start: 02-10-2025 Dr. Hugo Cervantes MD -[facility] Work Phone: Start: 02-10-2025 End: 02-10-2025 ambulatory [facility] Start: 02-10-2025 End: 02-10-2025 Dr. Júnior Chandra MD -[facility] Work Phone: Start: 02-09-2025 [facility] Start: 02-09-2025 Dr. Hugo Cervantes MD [facility] Work Phone: Start: 02-08-2025 Dr. Hugo Cervantes MD [facility] Work Phone: Start: 02-07-2025 Dr. Hugo Cervantes MD [facility] Work Phone: Start: 02-06-2025 Dr. Hugo Cervantes MD [facility] Work Phone: Start: 02-05-2025 Dr. Hugo Cervantes MD [facility] Work Phone: Start: 02-04-2025 Dr. Hugo Cervantes MD [facility] Work Phone: Start: 02-04-2025 Meghana LOZA -[facility] Start: 02-03-2025 ambulatory [facility] Start: 02-03-2025 [facility] Start: 02-03-2025 Dr. Hugo Cervantes MD [facility] Work Phone: Start: 02-02-2025 ambulatory Kee Mejia Facilit y:[facility] Start: 02-02-2025 End: 02-11-2025 Evaluation and management of inpatient Dr. Karen Aly MD -Pro[facility] Care Unit Work Phone: Start: 02-02-2025 End: 02-11-2025 Dr. Hugo Cervantes MD -[facility] Work Phone: Start: 12-22-2024 Registered Referred Walter Becker MD -[facility] Start: 12-22-2024 Walter Becker MD -[facility] Start: 12-22-2024 End: 12-22-2024 ambulatory Walter MAYORGA Facility:[facility] Start: 12-16-2024 ambulatory Luis Caldera Faci lity:[facility] Start: 12-16-2024 Registered Referred Walter Becker MD -[facility] Start: 12-16-2024 Walter Becker MD -[facility] Start: 11-24-2024 ambulatory Luis Caldera Faci lity:[facility] Start: 11-24-2024 Registered Referred Walter Becker MD -[facility] Start: 11-24-2024 Walter Becker MD -[facility] Start: 10-12-2024 End: 10-12-[address] Olga Lidia Rasheed MD -[facility] Work Phone: Start: 10-12-2024 End: 10-12-2024 ambulatory Luis Caldera [facility] Start: 10-05-2024 End: 10-05-[address] Luis Caldera MD Work Phone: [facility] Work Phone: Start: 10-05-2024 End: 10-05-2024 Departed Referred Walter Becker MD -[facility] Start: 10-05-2024 [facility] Start: 10-05-2024 End: 10-05-2024 ambulatory Luis Caldera Facility:[facility] Start: 09-29-2024 End: 09-29-[address] Luis Caldera MD Work Phone: [facility] Work Phone: Start: 09-29-2024 End: 09-29-2024 Departed Referred Walter Becker MD -[facility] Start: 09-29-2024 End: 09-29-2024 ambulatory Luis Caldera Facility:[facility] Start: 08-04-2024 End: 08-04-2024 Departed Referred Walter Becker MD -[facility] Start: 08-04-2024 End: 08-04-2024 ambulatory Walter MAYORGA Facility:[facility] Start: 07-27-2024 End: 07-27-2024 Departed Referred [facility] Start: 07-27-2024 End: 07-27-2024 ambulatory Walter MAYORGA Facility:[facility] Start: 07-07-2024 End: 07-07-2024 Departed Referred [facility] Start: 07-07-2024 End: 07-07-2024 ambulatory Walter MAYORGA Facility:[facility] Start: 07-01-2024 ambulatory Walter MAYORGA Facili ty:[facility] Start: 07-01-2024 Registered Referred [facility] Start: 06-01-2024 End: 06-01-2024 ambulatory Kee Oliverary Facility:[facility] Start: 10-25-[address] Adam Caldera Work Phone: [facility] Start: 10-16-2023 End: 10-16-[address] Luis Caldera Work Phone: [facility] Work Phone: Start: 10-16-2023 End: 10-16-[address] Luis Caldera Work Phone: [facility] Start: 10-16-[address] Adam Caldera Work Phone: [facility] Start: 10-08-2023 End: 10-08-[address] Luis Caldera Work Phone: [facility] Work Phone: Start: 10-08-2023 End: 10-08-[address] Luis Caldera Work Phone: [facility] Start: 10-08-[address] Adam Caldera Work Phone: [facility] Start: 10-07-2023 End: 10-07-[address] Luis Caldera Work Phone: [facility] Work Phone: Start: 10-04-2023 End: 10-04-[address] Luis Caldera Work Phone: [facility] Work Phone: Start: 10-04-2023 End: 10-04-[address] Luis Caldera Work Phone: [facility] Start: 10-01-2023 End: 10-01-[address] Luis Caldera Work Phone: [facility] Work Phone: Start: 10-01-2023 End: 10-01-[address] Luis Caldera Work Phone: [facility] Start: 10-01-2023 Registered Referred [place] Start: 09-25-2023 End: 09-25-2023 ambulatory [facility] Work Phone: Start: 09-25-2023 End: 09-25-2023 Departed Referred [facility] Start: 09-18-2023 End: 09-18-2023 ambulatory [facility] Work Phone: Start: 09-18-2023 End: 09-18-2023 Departed Referred [facility] Start: 09-18-2023 Registered Referred [facility] Start: 09-13-2023 End: 09-13-2023 ambulatory [facility] Work Phone: Start: 09-13-2023 End: 09-13-2023 Departed Referred [facility] Start: 09-13-2023 Registered Referred [facility] Start: 09-12-2023 End: 09-12-2023 ambulatory [facility] Work Phone: Start: 09-12-2023 End: 09-12-2023 Departed Referred [facility] Start: 09-12-2023 Registered Referred [facility] Start: 09-09-2023 End: 09-09-2023 ambulatory [facility] Work Phone: Start: 09-09-2023 End: 09-09-2023 Departed Referred [facility] Start: 09-09-2023 Registered Referred [facility] Start: 08-26-2023 End: 08-26-2023 ambulatory [facility] Work Phone: Start: 08-26-2023 End: 08-26-2023 Departed Referred [facility] Start: 08-26-2023 Registered Referred [facility] Start: 08-19-2023 End: 08-19-2023 ambulatory [facility] Work Phone: Start: 08-19-2023 End: 08-19-2023 Departed Referred [facility] Start: 08-19-2023 Registered Referred [facility] Start: 08-12-2023 End: 08-12-2023 ambulatory [facility] Work Phone: Start: 08-12-2023 End: 08-12-2023 Departed Referred [facility] Start: 08-12-2023 Registered Referred [facility] Start: 08-05-2023 End: 08-05-2023 ambulatory [facility] Work Phone: Start: 08-05-2023 End: 08-05-2023 Departed Referred [facility] Start: 08-05-2023 Registered Referred [facility] Start: 07-29-2023 End: 07-29-2023 ambulatory [facility] Work Phone: Start: 07-29-2023 End: 07-29-2023 Departed Referred [facility] Start: 07-22-2023 End: 07-22-2023 ambulatory [facility] Work Phone: Start: 07-22-2023 End: 07-22-2023 Departed Referred [facility] Start: 07-22-[address] Adam Caldera Work Phone: [facility] Start: 07-19-2023 End: 07-19-2023 ambulatory [facility] Work Phone: Start: 07-19-2023 End: 07-19-2023 Departed Referred [facility] Start: 07-19-[address] Adam Caldera Work Phone: [facility] Start: 07-17-2023 End: 07-17-2023 ambulatory [facility] Work Phone: Start: 07-17-2023 End: 07-17-2023 Departed Referred [facility] Start: 07-17-[address] Adam Caldera Work Phone: [facility] Start: 07-10-2023 End: 07-10-[address] Luis Caldera Work Phone: [facility] Work Phone: Start: 07-10-2023 End: 07-10-[address] Luis Caldera Work Phone: [facility] Start: 07-03-2023 End: 07-03-[address] Luis Caldera Work Phone: [facility] Work Phone: Start: 07-03-2023 End: 07-03-[address] Luis Caldera Work Phone: [facility] Start: 07-03-[address] Adam Caldera Work Phone: [facility] Start: 06-26-2023 End: 06-26-[address] Luis Caldera Work Phone: [facility] Work Phone: Start: 06-26-2023 End: 06-26-[address] Luis Caldera Work Phone: [facility] Start: 06-26-[address] Adam Caldera Work Phone: [facility] Start: 06-25-2023 End: 06-25-[address] Luis Caldera Work Phone: [facility] Work Phone: Start: 06-25-2023 End: 06-25-[address] Luis Caldera Work Phone: [phone] [place] [address] Start: 06-25-[address] Adam Caldera Work Phone: [facility] Start: 06-24-2023 End: 06-24-[address] Luis Caldera Work Phone: [facility] Work Phone: Start: 06-24-2023 End: 06-24-[address] Luis Caldera Work Phone: [facility] Start: 06-24-[address] Adam Caldera Work Phone: [facility] Start: 06-17-2023 End: 06-17-[address] Luis Caldera Work Phone: [facility] Work Phone: Start: 06-17-2023 End: 06-17-[address] Luis Caldera Work Phone: [facility] Start: 06-10-2023 End: 06-10-[address] Luis Caldera Work Phone: [facility] Work Phone: Start: 06-10-2023 End: 06-10-[address] Luis Caldera Work Phone: [facility] Start: 06-10-[address] Adam Caldera Work Phone: [facility] Start: 06-03-2023 End: 06-03-2023 Admission to same day surgery center Dr. Luis Caldera Work Phone: [facility] Start: 06-03-2023 End: 06-03-[address] Luis Caldera Work Phone: [facility] Work Phone: Start: 06-03-2023 End: 06-03-2023 Dr. Luis Caldera Work Phone: [facility] Start: 05-20-2023 End: 05-20-[address] Luis Caldera Work Phone: [facility] Work Phone: Start: 05-20-2023 End: 05-20-[address] Luis Caldera Work Phone: [facility] Start: 05-20-2023 End: 05-20-2023 Dr. Luis Caldera Work Phone: [facility] Start: 05-15-2023 End: 05-15-[address] Luis Caldera Work Phone: [facility] Work Phone: Start: 05-15-2023 End: 05-15-[address] Luis Caldera Work Phone: [facility] Start: 05-15-2023 End: 05-15-2023 Dr. Luis Caldera Work Phone: [facility] Start: 05-06-2023 End: 05-06-[address] Luis Caldera Work Phone: [facility] Work Phone: Start: 05-06-2023 End: 05-06-[address] Luis Caldera Work Phone: [facility] Start: 05-06-2023 End: 05-06-2023 Dr. Luis Caldera Work Phone: [facility] Start: 04-29-2023 End: 04-29-[address] Maggy Roberts Work Phone: [facility] Work Phone: Start: 04-29-2023 End: 04-29-[address] Luis Caldera Work Phone: [facility] Start: 04-29-2023 End: 04-29-2023 Dr. Maggy Roberts Work Phone: [facility] Start: 04-15-2023 End: 04-15-[address] Luis Caldera Work Phone: [facility] Start: 04-15-2023 End: 04-15-2023 Dr. Maggy Roberts Work Phone: [facility] Start: 04-09-2023 End: 04-09-[address] Maggy Roberts Work Phone: [facility] Work Phone: Start: 04-09-2023 End: 04-09-[address] Luis Caldera Work Phone: [facility] Start: 04-09-2023 End: 04-09-2023 Dr. Maggy Roberts Work Phone: [facility] Start: 04-08-2023 End: 04-08-[address] Luis Caldera Work Phone: [facility] Start: 04-08-2023 End: 04-08-2023 Dr. Maggy Roberts Work Phone: [facility] Start: 04-01-2023 End: 04-01-[address] Maggy Roberts Work Phone: [facility] Work Phone: Start: 04-01-2023 End: 04-01-[address] Luis Caldera Work Phone: [facility] Start: 04-01-2023 End: 04-01-2023 Dr. Maggy Roberts Work Phone: [facility] Start: 03-27-2023 End: 03-27-[address] Luis Caldera Work Phone: [facility] Work Phone: Start: 03-27-2023 End: 03-27-2023 Dr. Maggy Roberts Work Phone: [facility] Work Phone: Start: 03-25-2023 End: 03-25-[address] Maggy Roberts Work Phone: [facility] Work Phone: Start: 03-25-2023 End: 03-25-[address] Luis Caldera Work Phone: [facility] Start: 03-25-2023 End: 03-25-2023 Dr. Maggy Roberts Work Phone: [facility] Start: 03-11-2023 End: 03-11-[address] Maggy Roberts Work Phone: [facility] Work Phone: Start: 03-11-2023 End: 03-11-[address] Luis Caldera Work Phone: [facility] Start: 03-11-2023 End: 03-11-2023 Dr. Maggy Roberts Work Phone: [facility] Start: 03-04-[address] Adam Caldera Work Phone: [facility] Start: 03-04-2023 Dr. Maggy Bonilla line Work Phone: [facility] Start: 03-01-[address] Adam Caldera Work Phone: [facility] Start: 03-01-2023 Dr. Maggy Bonilla line Work Phone: [facility] Start: 02-25-[address] Adam Caldera Work Phone: [facility] Start: 02-25-2023 Dr. Maggy Bonilla line Work Phone: [facility] Start: 02-22-[address] Adam Caldera Work Phone: [facility] Start: 02-22-2023 Dr. Maggy Bonilla line Work Phone: [facility] Start: 02-20-2023 Dr. Maggy Bonilla line Work Phone: [facility] Start: 02-18-2023 End: 02-18-2023 Dr. Maggy Roberts Work Phone: [facility] Work Phone: Start: 02-14-2023 Dr. Maggy Bonilla line Work Phone: [facility] Start: 02-13-2023 Dr. Maggy Bonilla line Work Phone: [facility] Work Phone: Start: 02-12-2023 Dr. Maggy Bonilla line Work Phone: [facility] Work Phone: Start: 02-12-2023 Dr. Maggy benavides Work Phone: [facility] Start: 02-11-2023 End: 02-13-2023 Evaluation and management of inpatient Dr. Maggy Roberts Work Phone: [facility] Work Phone: Start: 02-11-2023 End: 02-13-2023 Dr. Maggy Roberts Work Phone: [facility] Work Phone: Start: 02-10-2023 End: 02-11-2023 Emergency department patient visit Dr. Maggy Roberts Work Phone: [facility] Work Phone: Start: 02-10-2023 End: 02-11-2023 Dr. Maggy Roberts Work Phone: [facility] Work Phone: Start: 02-07-2023 Dr. Maggy benavides Work Phone: [facility] Start: 02-05-2023 Dr. Maggy benavides Work Phone: [facility] Work Phone: Start: 02-05-2023 End: 02-05-2023 Dr. Maggy Roberts Work Phone: [facility] Work Phone: Start: 02-04-2023 Dr. Maggy Bonilla line Work Phone: [facility] Work Phone: Start: 02-03-2023 End: 02-05-2023 Dr. Maggy Roberts Work Phone: [facility] Work Phone: Start: 02-02-2023 Dr. Maggy Bonilla line Work Phone: [facility] Work Phone: Start: 02-01-2023 Dr. Maggy Bonilla line Work Phone: [facility] Start: 02-01-2023 Dr. Maggy Bonilla line Work Phone: [facility] Work Phone: Start: 01-31-2023 Dr. Maggy Bonilla line Work Phone: [facility] Start: 01-31-2023 Dr. Maggy Bonilla line Work Phone: [facility] Work Phone: Start: 01-30-2023 Dr. Maggy Bonilla line Work Phone: [facility] Start: 01-30-2023 Dr. Maggy Bonilla line Work Phone: [facility] Start: 01-29-2023 Dr. Maggy Bonilla line Work Phone: [facility] Work Phone: Start: 01-29-2023 Dr. Maggy Bonilla line Work Phone: [facility] Start: 01-28-2023 Telephone encounter Luis Caldera MD Work Phone: [facility] Comment on above: Immunizations Start: 01-28-2023 Dr. Maggy Bonilla line Work Phone: [facility] Work Phone: Start: 01-28-2023 End: 01-28-2023 Dr. Maggy Roberts Work Phone: [facility] Work Phone: Start: 01-27-2023 Evaluation and management of inpatient [facility] Start: 01-27-2023 End: 02-05-2023 Dr. [facility] Start: 01-26-2023 Non-patient / Non-visit Dr. Eddie Roberts Work Phone: [facility] Start: 01-26-2023 Dr. Maggy benavides Work Phone: [facility] Start: 01-26-2023 Non-patient / Non-visit Dr. Eddie Roberts Work Phone: [facility] Work Phone: Start: 01-26-2023 Dr. Mgagy Bonilla line Work Phone: [facility] Work Phone: Start: 01-25-2023 Non-patient / Non-visit Dr. Eddie Roberts Work Phone: [facility] Start: 01-25-2023 Dr. Maggy Bonilla line Work Phone: [facility] Start: 01-25-2023 Non-patient / Non-visit Dr. Eddie Roberts Work Phone: [facility] Work Phone: Start: 01-25-2023 Dr. Maggy Bonilla line Work Phone: [facility] Work Phone: Start: 01-24-2023 Non-patient / Non-visit Dr. Eddie Roberts Work Phone: [facility] Start: 01-24-2023 Dr. Maggy Bonilla line Work Phone: [facility] Start: 01-24-2023 Telephone encounter Luis Caldera MD Work Phone: [facility] Comment on above: Patient Update Start: 01-24-2023 Non-patient / Non-visit Dr. Eddie Roberts Work Phone: [facility] Start: 01-24-2023 Dr. Maggy Bonilla line Work Phone: [facility] Start: 01-24-2023 Non-patient / Non-visit Dr. Eddie Roberts Work Phone: [facility] Work Phone: Start: 01-24-2023 End: 01-24-2023 Dr. Maggy Roberts Work Phone: [facility] Work Phone: Start: 01-23-2023 Non-patient / Non-visit Dr. Eddie Roberts Work Phone: [facility] Start: 01-23-2023 Dr. Maggy Bonilla line Work Phone: [facility] Start: 01-23-2023 Non-patient / Non-visit Dr. Eddie Roberts Work Phone: [facility] Start: 01-23-2023 Dr. Maggy Bonilla line Work Phone: [facility] Start: 01-22-2023 Non-patient / Non-visit Dr. Eddie Roberts Work Phone: [facility] Start: 01-22-2023 Dr. Maggy Bonilla line Work Phone: [facility] Start: 01-22-2023 Non-patient / Non-visit Dr. Eddie Roberts Work Phone: [facility] Start: 01-22-2023 Dr. aMggy benavides Work Phone: [facility] Start: 01-22-2023 Non-patient / Non-visit Dr. Eddie Roberts Work Phone: [facility] Work Phone: Start: 01-22-2023 Dr. Maggy benavides Work Phone: [facility] Work Phone: Start: 01-21-2023 End: 01-21-2023 Dr. Maggy Roberts Work Phone: [facility] Work Phone: Start: 01-21-2023 Non-patient / Non-visit Dr. Eddie Roberts Work Phone: [facility] Start: 01-21-2023 Dr. Maggy Bonilla line Work Phone: [facility] Start: 01-21-2023 Non-patient / Non-visit Dr. Eddie Roberts Work Phone: [facility] Work Phone: Start: 01-21-2023 Dr. Maggy Bonilla line Work Phone: [facility] Work Phone: Start: 01-21-2023 End: 01-26-2023 Evaluation and management of inpatient Dr. Maggy Roberts Work Phone: [facility] Work Phone: Start: 01-21-2023 End: 01-26-2023 Dr. Maggy Roberts Work Phone: [facility] Work Phone: Start: 01-08-2023 Non-patient / Non-visit Dr. Eddei Roberts Work Phone: [facility] Work Phone: Start: 01-08-2023 Dr. Maggy Bonilla line Work Phone: [facility] Work Phone: Start: 01-07-2023 Non-patient / Non-visit Dr. Eddie Roberts Work Phone: [facility] Work Phone: Start: 01-07-2023 Dr. Maggy Bonilla line Work Phone: [facility] Work Phone: Start: 01-06-2023 Non-patient / Non-visit Dr. Eddie Roberts Work Phone: [facility] Work Phone: Start: 01-06-2023 Dr. Maggy benavides Work Phone: [facility] Work Phone: Start: 01-05-2023 End: 01-08-2023 Evaluation and management of inpatient [facility] Mag[facility] Start: 01-05-2023 End: 01-08-2023 Dr. Maggy Roberts Work Phone: [facility] Work Phone: Start: 01-05-2023 Non-patient / Non-visit Dr. Eddie Roberts Work Phone: [facility] Work Phone: Start: 01-05-2023 Dr. Maggy benavides Work Phone: [facility] Work Phone: Start: 01-04-2023 Evaluation and management of inpatient [facility] Start: 01-04-2023 Non-patient / Non-visit Dr. Eddie Roberts Work Phone: [facility] Work Phone: Start: 01-04-2023 observation encounter [facility] Work Phone: Start: 01-04-2023 Dr. Maggy Bonilla line Work Phone: [facility] Work Phone: Start: 01-04-2023 Telephone encounter Luis Caldera MD Work Phone: [facility] Comment on above: Appointment Start: 01-03-2023 Telephone encounter Luis Caldera MD Work Phone: [facility] Comment on above: Appointment; Patient Update Start: 01-03-2023 End: 01-03-2023 ambulatory Justina O'Rafa PT [facility] Comment on above: Spinal stenosis, lum bar region, without neurogenic claudication (Primary Dx); Primary osteoarthritis of both knees Start: 12-31-2022 End: 12-31-2022 ambulatory Ira Kashuba [employer] Work Phone: [facility] Comment on above: Spinal stenosis, lum bar region, without neurogenic claudication (Primary Dx); Primary osteoarthritis of both knees Start: 12-27-2022 End: 12-27-2022 ambulatory Ira Kashuba [employer] Work Phone: [facility] Comment on above: Spinal stenosis, lum bar region, without neurogenic claudication (Primary Dx); Primary osteoarthritis of both knees Start: 12-24-2022 End: 12-24-2022 ambulatory Justina O'Rafa PT [facility] Comment on above: Spinal stenosis, lum bar region, without neurogenic claudication (Primary Dx); Primary osteoarthritis of both knees Start: 12-17-2022 End: 12-17-2022 ambulatory Justina O'Rafa PT [facility] Comment on above: Spinal stenosis, lum bar region, without neurogenic claudication (Primary Dx); Primary osteoarthritis of both knees Start: 12-14-2022 End: 12-14-2022 ambulatory Justina O'Rafa PT [facility] Comment on above: Spinal stenosis, lum bar region, without neurogenic claudication (Primary Dx); Primary osteoarthritis of both knees Start: 12-12-2022 End: 12-12-2022 ambulatory Justina O'Rafa PT [facility] Comment on above: Spinal stenosis, lum bar region, without neurogenic claudication (Primary Dx); Primary osteoarthritis of both knees Start: 11-20-2022 Refill Abdulaziz Caldera MD Work Phone: [facility] Comment on above: Refill Request Start: 11-19-2022 Telephone encounter Valencia Pascual MA [facility] Comment on above: Anticoagulation Start: 10-22-2022 End: 10-22-2022 Patient encounter procedure Zachary Sawantanny Work Phone: Podiatry Comment on above: Onychomycosis (Prima ry Dx); Pain in toe of left foot; Amputated toe of right foot (HCC); Diabetic polyneuropathy associated with type 2 diabetes mellitus (HCC) Start: 09-25-2022 Telephone encounter Luis Caldera MD Work Phone: [facility] Comment on above: Anticoagulation Start: 09-07-2022 Telephone encounter Jojo galan MD Work Phone: Neurology Comment on above: Appointment Start: 09-07-2022 End: 09-07-2022 Office outpatient visit 25 minutes Jojo Kaur MD Work Phone: Neurology Comment on above: Driving safety issue (Primary Dx) Start: 08-28-2022 Telephone encounter Luis Caldera MD Work Phone: [facility] Comment on above: Anticoagulation Start: 08-16-2022 Refill Abdulaziz Caldera MD Work Phone: [facility] Comment on above: Refill Request Start: 08-14-2022 Telephone encounter Luis Caldera MD Work Phone: [facility] Comment on above: Anticoagulation Start: 08-09-2022 End: 08-09-2022 Patient encounter procedure Abdulaziz Caldera MD Work Phone: [facility] Comment on above: Type 2 diabetes [...] Telephone encounter Luis Caldera MD Work Phone: [facility] Comment on above: checking on medicati on Start: 08-06-2022 End: 08-06-2022 Patient encounter procedure Zachary Jaimes MD Work Phone: Otolaryngology Comment on above: Dizziness (Primary D x); Chronic frontal sinusitis Start: 07-31-2022 Telephone encounter Luis Caldera MD Work Phone: [facility] Comment on above: Anticoagulation Start: 07-26-2022 Telephone encounter Luis Caldera MD Work Phone: [facility] Comment on above: Home Health-Nursing Update Start: 07-25-2022 Refill Abdulaziz Caldera MD Work Phone: [facility] Comment on above: Refill Request Start: 07-17-2022 Telephone encounter Luis Caldera MD Work Phone: [facility] Comment on above: [facility] PT POC OT plan of care Start: 07-13-2022 Telephone encounter Luis Caldera MD Work Phone: [facility] Comment on above: Nursing Plan of C are Update Start: 07-12-2022 Telephone encounter Luis Caldera MD Work Phone: [facility] Comment on above: Orders Start: 07-11-2022 Non-patient / Non-visit Dr. Praveen Caldera Work Phone: [facility] Start: 07-11-2022 Non-patient / Non-visit Dr. Praveen Caldera Work Phone: [facility] Start: 07-10-2022 Non-patient / Non-visit Dr. Praveen Caldera Work Phone: [facility] Start: 07-10-2022 Non-patient / Non-visit Dr. Praveen Caldera Work Phone: [facility] Start: 07-09-2022 End: 07-11-2022 Evaluation and management of inpatient Dr. Luis Caldera Work Phone: [facility] Start: 07-09-2022 Refill Amanda Cunningham [facility] Comment on above: Opened In Error Refill Request Start: 07-05-2022 E-mail encounter fro m caregiver Jojo Kaur MD Work Phone: [facility] ([place], [place]) Start: 07-05-2022 Patient encounter procedure Jojo Kaur MD Work Phone: Neurology Comment on above: Appointment Needs Re scheduled: 08/21/[address] Kaur Start: 06-25-2022 Refill Abdulaziz Caldera MD Work Phone: [facility] Comment on above: Refill Request Start: 05-16-2022 Refill Abdulaziz Caldera MD Work Phone: [facility] Comment on above: Refill Request Start: 04-17-2022 Telephone encounter Justina fry [employer] Work Phone: Adult Psychology Comment on above: behavioral health [facility] work Start: 04-17-2022 End: 04-17-2022 Patient encounter procedure Jojo Kaur MD Work Phone: Neurology Comment on above: Generalized anxiety disorder (Primary Dx); Polyneuropathy Start: 04-16-2022 End: 04-16-2022 Patient encounter procedure Abdulaziz Caldera MD Work Phone: [facility] Comment on above: Type 2 diabetes [...] End: 04-06-2022 Patient encounter procedure Roselia Podlogdavid GARCIADAMAGE APPRAISER Work Phone: [facility] Comment on above: Generalized weakness (Primary Dx); Encounter for immunization; Mild depression Start: 04-04-2022 Telephone encounter Luis Caldera MD Work Phone: [facility] Comment on above: Anticoagulation Start: 03-30-2022 End: 03-30-2022 Patient encounter procedure Zachary Obregon Work Phone: Podiatry Comment on above: Onychomycosis (Prima ry Dx); Pain in toe of left foot; Amputated toe of right foot (HCC); Diabetic polyneuropathy associated with type 2 diabetes mellitus (HCC) Start: 03-23-2022 End: 03-23-2022 ambulatory David Caputo [facility] Physical Therapy Comment on above: Abnormality of gait due to impairment of balance (Primary Dx) Start: 03-22-2022 Refill Abdulaziz Caldera MD Work Phone: [facility] Comment on above: Refill Request Start: 03-15-2022 End: 03-15-2022 ambulatory Karen Weber STONE UNLOADER Work Phone: [facility] Physical Therapy Comment on above: Abnormality of gait due to impairment of balance (Primary Dx) Start: 03-12-2022 End: 03-12-2022 ambulatory Karen Weber STONE UNLOADER Work Phone: [facility] Physical Therapy Comment on above: Abnormality of gait due to impairment of balance (Primary Dx) Start: 03-09-2022 End: 03-09-2022 ambulatory Davdi Lemon PT [facility] Physical Therapy Comment on above: Abnormality of gait due to impairment of balance (Primary Dx) Start: 03-07-2022 Telephone encounter Luis Caldera MD Work Phone: [facility] Comment on above: Anticoagulation Start: 03-07-2022 End: 03-07-[address] Luis Caldera Work Phone: [facility] Work Phone: Start: 03-07-2022 End: 03-07-[address] Luis Caldera Work Phone: [facility]Labor[facility], Specimen Start: 03-07-2022 End: 03-07-2022 Patient encounter procedure Abdulaziz Caldera MD Work Phone: [facility] Comment on above: Generalized weakness (Primary Dx); Supratherapeutic INR; ANTHONY (acute kidney injury) ([facility]) Start: 03-05-2022 End: 03-05-2022 ambulatory David Lemon PT [facility] Physical Therapy Comment on above: Abnormality of gait due to impairment of balance (Primary Dx) Start: 03-02-2022 End: 03-02-2022 Emergency department patient visit Dr. Luis Caldera Work Phone: [facility] Start: 03-02-2022 End: 03-02-2022 ambulatory David Lemon PT [facility] Physical Therapy Comment on above: Abnormality of gait due to impairment of balance (Primary Dx) Start: 02-26-2022 End: 02-26-2022 ambulatory David Lemon PT [facility] Physical [facility] Comment on above: Abnormality of gait due to impairment of balance (Primary Dx) Start: 02-23-2022 End: 02-23-2022 ambulatory Karen Weber STONE UNLOADER Work Phone: [facility] Physical Therapy Comment on above: Abnormality of gait due to impairment of balance (Primary Dx) Start: 02-14-2022 End: 02-14-2022 ambulatory David Lemon PT [facility] Physical Therapy Comment on above: Abnormality of gait due to impairment of balance (Primary Dx) Start: 02-09-2022 End: 02-09-2022 ambulatory David Lemon PT [facility] Comment on above: Abnormality of gait due to impairment of balance (Primary Dx) Start: 02-06-2022 Refill Abdulaziz Caldera MD Work Phone: [facility] Comment on above: Prescription Refills Start: 02-02-2022 End: 02-02-2022 ambulatory Karenevelyn Wardter STONE UNLOADER Work Phone: [facility] Physical Therapy Comment on above: Abnormality of gait due to impairment of balance (Primary Dx) Start: 01-31-2022 Refill Abdulaziz Caldera MD Work Phone: [facility] Comment on above: Refill Request Start: 01-30-2022 End: 01-30-2022 ambulatory Karen Weber STONE UNLOADER Work Phone: [facility] Comment on above: Abnormality of gait due to impairment of balance (Primary Dx) Start: 01-23-2022 End: 01-23-2022 ambulatory Karen Weber STONE UNLOADER Work Phone: [facility] Physical Therapy Comment on above: Abnormality of gait due to impairment of balance (Primary Dx) Refill Request; Refi ll Request Start: 01-17-2022 Telephone encounter Luis Caldera MD Work Phone: [facility] Comment on above: Question Start: 01-12-2022 End: 01-12-2022 ambulatory David Lemon PT [facility] Physical [facility] Comment on above: Abnormality of gait due to impairment of balance (Primary Dx) Start: 01-11-2022 Telephone encounter Roselia miguel APRN.DAMAGE APPRAISER Work Phone: [facility] [place] Comment on above: Patient Question; Me dication Question; Referral Request Start: 01-10-2022 Telephone encounter Justina Monique APRN.DAMAGE APPRAISER Work Phone: Cardiology Comment on above: Results [...] type Start: 01-02-2022 Telephone encounter Justina Monique APRN.DAMAGE APPRAISER Work Phone: [facility] Comment on above: Results Start: 01-01-2022 End: 01-01-2022 Patient encounter procedure Justina Monique APRN.DAMAGE APPRAISER Work Phone: Cardiology Comment on above: Hyperlipidemia with target LDL less than 100 (Primary Dx); Primary hypertension; Thoracic aortic aneurysm without rupture (HCC); Coronary artery disease involving [place] coronary artery of [place] heart without angina pectoris; Syncope, unspecified syncope [...] / Non-visit Dr. Praveen Caldera Work Phone: [facility] Start: 12-28-2021 Non-patient / Non-visit Dr. Praveen Caldera Work Phone: [facility] Start: 12-28-2021 End: 12-29-2021 Evaluation and management of inpatient Dr. Luis Caldera Work Phone: [facility] Start: 12-27-2021 Non-patient / Non-visit Dr. Praveen Caldera Work Phone: [facility] Start: 12-27-2021 End: 12-27-2021 Emergency department patient visit DR. MELANIA WORKMAN MD. Facility:[facility] Start: 12-27-2021 End: 12-27-2021 Emergency department patient visit DR MELANIA WORKMAN MD [facility] Start: 12-14-2021 End: 12-14-2021 Patient encounter procedure Abdulaziz Caldera MD Work Phone: [facility] Comment on above: COVID-19 (Primary Dx ) Start: 12-08-2021 End: 12-08-2021 ambulatory Abdulaziz Caldera MD Work Phone: [facility] Comment on above: COVID-19 (Primary Dx ) Start: 12-08-2021 End: 12-08-2021 Telemedicine consultation with patient Abdulaziz Caldera MD Work Phone: [facility] Start: 12-08-2021 Telephone encounter Luis Caldera MD Work Phone: [facility] Comment on above: Patient Question Start: 12-06-2021 End: 12-07-2021 Emergency department patient visit [facility] Start: 11-20-2021 Refill Abdulaziz Caldera [...] Telephone encounter Luis Caldera MD Work Phone: [facility] Comment on above: Medication Question Start: [...] QUADRIVALENT HIGH DOSE AGE 65+ Roselia Podlogar VICE PRESIDENT OF CUSTOMER SERVICE.DAMAGE APPRAISER Work Phone: Start: 04-06-2022 [employer] COVID-19 BIVALENT BOOSTER VACCINE, AGE 12+ YR Roselia Podlogar VICE PRESIDENT OF CUSTOMER SERVICE.DAMAGE APPRAISER Work Phone: Start: 04-06-2022 Adult depression screening assessment Roselia Podlogar VICE PRESIDENT OF CUSTOMER SERVICE.DAMAGE APPRAISER Work Phone: Start: 03-07-2022 PROTHROMBIN TIME/PT Abdulaziz Caldera MD Work Phone: Start: 03-07-2022 Adult depression screening assessment Abdulaziz Caldera MD Work Phone: Start: 03-02-2022 CT of head without contrast Dr. Camron Caldera Work Phone: Start: 03-02-2022 Plain chest X-ray Dr. Luis Caldera Work Phone: Start: 01-09-2022 Echo tthrc r-t 2d w/wom-mode compl spec&colr d Justina E Leonie VICE PRESIDENT OF CUSTOMER SERVICE.DAMAGE APPRAISER Work Phone: Start: 01-01-2022 Urnls dip stick/tablet [...] ca scrn not hi rsk ind Marcella PALisaC Work Phone: Start: 10-10-2021 Gluc bld [...] Activity Detail Author Start: 10-11-2031 Colonoscopy COLONOSCOPY [facility] Start: 10-11-2031 COLORECTAL CANCER SCREENING COLORECTAL CANCER SCREENING [facility] Start: 02-27-2025 [facility] Start: 02-27-2025 End: 02-27-2025 [facility] Start: 02-27-2025 Blood culture [facility] Start: 02-11-2025 [facility] Start: 02-11-2025 Patient discharge [facility] Start: 02-11-2025 Application, wound VAC [facility] Start: 02-11-2025 [facility] Start: 02-10-2025 Elevation of head of bed [facility] Start: 02-10-2025 End: 02-10-2025 [facility] Start: 02-10-2025 Cardiac monitoring [facility] Start: 02-10-2025 Dietary regime [facility] Start: 02-10-2025 Log roll [facility] Start: 02-10-2025 Notification of physician [facility] Start: 02-10-2025 Provision of activit y privileges [facility] Start: 02-10-2025 Pulse taking [facility] Start: 02-09-2025 Catheterization of vein [facility] Start: 02-09-2025 Notification of physician [facility] Start: 02-09-2025 Preoperative care [facility] Start: 02-09-2025 End: 02-09-2025 [facility] Start: 02-08-2025 Consultation [facility] Start: 02-07-2025 [facility] Start: 02-05-2025 [facility] Start: 02-05-2025 Acid fast bacilli culture [facility] Start: 02-05-2025 Acid fast bacilli culture [facility] Start: 02-05-2025 Mycology culture [facility] Start: 02-04-2025 Removal of urinary catheter [facility] Start: 02-04-2025 [facility] Start: 02-03-2025 End: 02-03-2025 [facility] Start: 02-03-2025 Referral to vascular surgeon [facility] Start: 02-03-2025 Following clinical p athway protocol [facility] Start: 02-03-2025 Assessment of risk o f venous thromboembolism [facility] Start: 02-03-2025 Care regimes management [facility] Start: 02-03-2025 Consultation for treatment [facility] Start: 02-03-2025 Elevation of affecte d extremity [facility] Start: 02-03-2025 Fall prevention [facility] Start: 02-03-2025 Inhalation therapy procedure [facility] Start: 02-03-2025 Insertion of cathete r into peripheral vein [facility] Start: 02-03-2025 Introduction of urin barrington catheter [facility] Start: 02-03-2025 Measuring intake and output [facility] Start: 02-03-2025 Methicillin resistan t Staphylococcus aureus screening test [facility] Start: 02-03-2025 Notification of physician [facility] Start: 02-03-2025 Oxygen therapy [facility] Start: 02-03-2025 Providing care accor ding to standard [facility] Start: 02-03-2025 Provision of activit y privileges [facility] Start: 02-03-2025 Referral to occupati onal therapist [facility] Start: 02-03-2025 Referral to tissue inserter [facility] Start: 02-03-2025 Referral to service [facility] Start: 02-03-2025 Speech therapy assessment [facility] Start: 02-03-2025 Wound care [facility] Start: 02-03-2025 End: 02-03-2025 [facility] Start: 02-03-2025 Patient referral to dietitian [facility] Start: 02-02-2025 Hospital admission, emergency, from emergency room, medical nature [facility] Start: 02-02-2025 Respiratory pathogen s DNA and RNA panel - Respiratory specimen by ANGELY with probe detection [facility] Start: 02-02-2025 Verification routine [facility] Start: 02-02-2025 Admission procedure [facility] Start: 02-02-2025 [facility] Start: 02-02-2025 End: 02-02-2025 [facility] Start: 02-02-2025 Bacteria identified in Blood by Culture Blood Culture [facility] Start: 02-02-2025 Bacteria identified in Urine by Culture Urine Culture [facility] Start: 10-10-2024 Colonoscopy COLONOSCOPY [facility] Start: 10-10-2024 COLORECTAL CANCER SCREENING COLORECTAL CANCER SCREENING [facility] Start: 01-05-2024 ANNUAL PCP TEAM TOBACCO SIZER MARLENE DISEASE VISIT ANNUAL PCP TEAM CHRONIC DISEASE VISIT [facility] Start: 01-05-2024 BP CONTROLLED (<130/80) BP CONTROLLE D (<130/80) [facility] Start: 12-04-2023 BP CONTROLLED (<130/80) BP CONTROLLE D (<130/80) [facility] Start: 11-20-2023 ANNUAL PCP TEAM TOBACCO SIZER MARLENE DISEASE VISIT ANNUAL PCP TEAM CHRONIC DISEASE VISIT [facility] Start: 11-20-2023 BP CONTROLLED (<130/80) BP CONTROLLE D (<130/80) [facility] Start: 09-07-2023 BP CONTROLLED (<130/80) BP CONTROLLE D (<130/80) [facility] Start: 08-13-2023 HEMOGLOBIN/HEMATOCRIT HEMOGLOBIN/HEM ATOCRIT [facility] Start: 08-13-2023 SERUM CREATININE SERUM CREATININE Cl [facility] Start: 08-09-2023 ANNUAL PCP TEAM TOBACCO SIZER MARLENE DISEASE VISIT ANNUAL PCP TEAM CHRONIC DISEASE VISIT [facility] Start: 08-09-2023 BP CONTROLLED (<130/80) BP CONTROLLE D (<130/80) [facility] Start: 07-12-2023 ANNUAL PCP TEAM TOBACCO SIZER MARLENE DISEASE VISIT ANNUAL PCP TEAM CHRONIC DISEASE VISIT [facility] Start: 07-12-2023 BP CONTROLLED (<130/80) BP CONTROLLE D (<130/80) [facility] Start: 06-03-2023 Anes dx/ther nerve block/injection prone pos ANESTH N BLOCK/INJ PRONE [facility] Start: 06-03-2023 Njx dx/ther sbst int rlmnr lmbr/sac w/img gdn NJX INTERLAMINAR LMBR/SAC [facility] Start: 06-03-2023 Injection using fluoroscopic guidance [facility] Start: 06-03-2023 Patient discharge [facility] Start: 04-17-2023 BP CONTROLLED (<130/80) BP CONTROLLE D (<130/80) [facility] Start: 04-16-2023 ANNUAL PCP TEAM TOBACCO SIZER MARLENE DISEASE VISIT ANNUAL PCP TEAM CHRONIC DISEASE VISIT [facility] Start: 04-06-2023 Adult depression scr eening assessment DEPRESSION SCREENING [facility] Start: 04-06-2023 ANNUAL PCP TEAM TOBACCO SIZER MARLENE DISEASE VISIT ANNUAL PCP TEAM CHRONIC DISEASE VISIT [facility] Start: 04-06-2023 BP CONTROLLED (<130/80) BP CONTROLLE D (<130/80) [facility] Start: 03-30-2023 3 comp foot exam completed DIABETIC FOOT EXAM [facility] Start: 03-15-2023 Influenza vaccination INFLUENZA (#1) [facility] Start: 03-07-2023 Adult depression scr eening assessment DEPRESSION SCREENING [facility] Start: 03-07-2023 ANNUAL PCP TEAM TOBACCO SIZER MARLENE DISEASE VISIT ANNUAL PCP TEAM CHRONIC DISEASE VISIT [facility] Start: 03-07-2023 BP CONTROLLED (<130/80) BP CONTROLLE D (<130/80) [facility] Start: 03-07-2023 SERUM CREATININE SERUM CREATININE Cl [facility] Start: 03-05-2023 BP CONTROLLED (<130/80) BP CONTROLLE D (<130/80) [facility] Start: 03-02-2023 Hepatitis B screening URINE ALBUMIN:CREATININE RATIO [facility] Start: 02-13-2023 Patient discharge [facility] Start: 02-12-2023 Care regimes management [facility] Start: 02-12-2023 Notification of physician [facility] Start: 02-12-2023 [facility] Start: 02-12-2023 Blood culture [facility] Start: 02-12-2023 End: 02-12-2023 [facility] Start: 02-11-2023 End: 02-11-2023 Blood culture [facility] Start: 02-11-2023 Assessment of risk o f venous thromboembolism [facility] Start: 02-11-2023 Consultation [facility] Start: 02-11-2023 Insertion of cathete r into peripheral vein [facility] Start: 02-11-2023 Providing care accor ding to standard [facility] Start: 02-11-2023 Provision of activit y privileges [facility] Start: 02-11-2023 Referral to occupati onal therapist [facility] Start: 02-11-2023 Referral to service [facility] Start: 02-11-2023 [facility] Start: 02-11-2023 Admission procedure [facility] Start: 02-11-2023 [facility] Start: 02-11-2023 Patient referral to dietitian [facility] Start: 02-10-2023 End: 02-10-2023 [facility] Start: 02-10-2023 End: 02-10-2023 Blood culture [facility] Start: 02-10-2023 Hemoglobin A1c/Hemoglobin.total in Blood HBA1C [facility] Start: 02-05-2023 Patient discharge [facility] Start: 02-04-2023 Assessment of risk o f venous thromboembolism [facility] Start: 02-04-2023 Bedrest [facility] Start: 02-04-2023 Elevation of head of bed [facility] Start: 02-04-2023 Taking patient vital signs [facility] Start: 02-04-2023 Wound care [facility] Start: 02-04-2023 [facility] Start: 02-04-2023 Catheterization of vein [facility] Start: 02-04-2023 Notification of physician [facility] Start: 02-04-2023 [facility] Start: 02-01-2023 Catheterization of vein [facility] Start: 02-01-2023 Notification of physician [facility] Start: 02-01-2023 [facility] Start: 02-01-2023 [facility] Start: 01-30-2023 Referral to trial justice [facility] Start: 01-30-2023 End: 01-30-2023 Administration of blood product [facility] Start: 01-29-2023 Speech therapy assessment [facility] Start: 01-29-2023 [facility] Start: 01-28-2023 End: 01-29-2023 [facility] Start: 01-27-2023 Application of intermittent pneumatic compression device [facility] Start: 01-27-2023 Following clinical p athway protocol [facility] Start: 01-27-2023 Methicillin resistan t Staphylococcus aureus screening test [facility] Start: 01-27-2023 Aspiration precautions [facility] Start: 01-27-2023 Assessment of risk o f venous thromboembolism [facility] Start: 01-27-2023 Care regimes management [facility] Start: 01-27-2023 Fall prevention [facility] Start: 01-27-2023 Insertion of cathete r into peripheral vein [facility] Start: 01-27-2023 Introduction of urin barrington catheter [facility] Start: 01-27-2023 Measuring intake and output [facility] Start: 01-27-2023 Providing care accor ding to standard [facility] Start: 01-27-2023 Provision of activit y privileges [facility] Start: 01-27-2023 Referral to gastroenterology service [facility] Start: 01-27-2023 Referral to occupati onal therapist [facility] Start: 01-27-2023 Referral to service [facility] Start: 01-27-2023 [facility] Start: 01-27-2023 Admission procedure [facility] Start: 01-27-2023 CT Chest and Abdomen and Pelvis WO and W contrast IV [facility] Start: 01-27-2023 CT of thorax, abdome n and pelvis with contrast CTA Chst, Abd, Pel W and/or WO [facility] Start: 01-27-2023 Blood chemistry [facility] Start: 01-27-2023 End: 01-28-2023 [facility] Start: 01-27-2023 Patient referral to dietitian [facility] Start: 01-26-2023 Patient discharge [facility] Start: 01-24-2023 Speech therapy assessment [facility] Start: 01-24-2023 Speech therapy assessment [facility] Start: 01-22-2023 Referral to trial justice [facility] Start: 01-21-2023 Administration of bl ood product [facility] Start: 01-21-2023 Catheterization of vein [facility] Start: 01-21-2023 Application of intermittent pneumatic compression device [facility] Start: 01-21-2023 Following clinical p athway protocol [facility] Start: 01-21-2023 Care regimes management [facility] Start: 01-21-2023 Notification of physician [facility] Start: 01-21-2023 Cardiac monitoring [facility] Start: 01-21-2023 Referral to gastroenterology service [facility] Start: 01-21-2023 End: 01-21-2023 [facility] Start: 01-21-2023 Oxygen therapy [facility] Start: 01-21-2023 Ambulation without limitation [facility] Start: 01-21-2023 Documentation procedure [facility] Start: 01-21-2023 Assessment of risk o f venous thromboembolism [facility] Start: 01-21-2023 Continuous pulse oximetry [facility] Start: 01-21-2023 Insertion of cathete r into peripheral vein [facility] Start: 01-21-2023 Measuring intake and output [facility] Start: 01-21-2023 Providing care accor ding to standard [facility] Start: 01-21-2023 Referral to occupati onal therapist [facility] Start: 01-21-2023 Referral to service [facility] Start: 01-21-2023 Verification routine [facility] Start: 01-21-2023 Vital signs measurements [facility] Start: 01-21-2023 Admission procedure [facility] Start: 01-21-2023 Transfusion of red b lood cells [facility] Start: 01-08-2023 Patient discharge [facility] Start: 01-05-2023 BP CONTROLLED (<130/80) BP CONTROLLE D (<130/80) [facility] Start: 01-05-2023 Admission procedure [facility] Start: 01-05-2023 Telepractice consultation [facility] Start: 01-04-2023 Application of intermittent pneumatic compression device [facility] Start: 01-04-2023 Following clinical p athway protocol [facility] Start: 01-04-2023 Aspiration precautions [facility] Start: 01-04-2023 Assessment of risk o f venous thromboembolism [facility] Start: 01-04-2023 Cardiac monitoring [facility] Start: 01-04-2023 Care regimes management [facility] Start: 01-04-2023 Catheterization of vein [facility] Start: 01-04-2023 Elevation of head of bed [facility] Start: 01-04-2023 Exercises [facility] Start: 01-04-2023 Fall prevention [facility] Start: 01-04-2023 Inhalation therapy procedure [facility] Start: 01-04-2023 Insertion of cathete r into peripheral vein [facility] Start: 01-04-2023 Introduction of urin barrington catheter [facility] Start: 01-04-2023 Measuring intake and output [facility] Start: 01-04-2023 Notification of physician [facility] Start: 01-04-2023 Providing care accor ding to [facility] Start: 01-04-2023 Provision of activit y privileges [facility] Start: 01-04-2023 Referral to occupati onal therapist [facility] Start: 01-04-2023 Referral to service [facility] Start: 01-04-2023 Tobacco use cessatio n education [facility] Start: 01-04-2023 Verification routine [facility] Start: 01-04-2023 Admission procedure [facility] Start: 01-04-2023 End: 01-04-2023 [facility] Start: 01-04-2023 End: 01-04-2023 Blood culture [facility] Start: 01-04-2023 Patient referral to dietitian [facility] Start: 01-01-2023 ANNUAL PCP TEAM TOBACCO SIZER MARLENE DISEASE VISIT ANNUAL PCP TEAM CHRONIC DISEASE VISIT [facility] Start: 01-01-2023 BP CONTROLLED (<130/80) BP CONTROLLE D (<130/80) [facility] Start: 01-01-2023 Hepatitis B surface antibody level LDL CHOLESTEROL [facility] Start: 01-01-2023 SERUM CREATININE SERUM CREATININE [facility] Start: 12-14-2022 ANNUAL PCP TEAM TOBACCO SIZER MARLENE DISEASE VISIT ANNUAL PCP TEAM CHRONIC DISEASE VISIT [facility] Start: 12-08-2022 ANNUAL PCP TEAM TOBACCO SIZER MARLENE DISEASE VISIT ANNUAL PCP TEAM CHRONIC DISEASE VISIT [facility] Start: 12-08-2022 BP CONTROLLED (<130/80) BP CONTROLLE D (<130/80) [facility] Start: 09-06-2022 ANNUAL PCP TEAM TOBACCO SIZER MARLENE DISEASE VISIT ANNUAL PCP TEAM CHRONIC DISEASE VISIT [facility] Start: 09-02-2022 Hemoglobin A1c/Hemoglobin.total in Blood HBA1C [facility] Start: 08-30-2022 SERUM CREATININE SERUM CREATININE [facility] Start: 08-09-2022 End: 10-09-2022 CBC W Auto Differential panel - Blood CBC + DIFF Lab Routine Type 2 diabetes mellitus with diabetic neuropathy, with long-term current use of insulin (HCC) Expected: 08/09/2022, Expires: 10/09/[address] [facility] Work Phone: Comment on above: Expected: 08/09/2022 , Expires: 10/09/2022 Start: 08-09-2022 End: 10-09-2022 Comprehensive metabolic 2000 panel - Serum or Plasma COMP METABOLIC PANEL Lab Routine Type 2 diabetes mellitus with diabetic neuropathy, with long-term current use of insulin (HCC) Expected: 08/09/2022, Expires: 10/09/[address] [facility] Work Phone: Comment on above: Expected: 08/09/2022 , Expires: 10/09/2022 Start: 08-09-2022 End: 10-09-2022 Hemoglobin A1c in Blood HGB A1C Lab Routine Type 2 diabetes mellitus with diabetic neuropathy, with long-term current use of insulin (HCC) Expected: 08/09/2022, Expires: 10/09/[address] [facility] Work Phone: Comment on above: Expected: 08/09/2022 , Expires: 10/09/2022 Start: 08-06-2022 COVID-19 VACCINE (6 - Pfizer series) COVID-19 VACCINE (6 - Pfizer series) [facility] Start: 07-15-2022 ADVANCE DIRECTIVE DISCUSSION ADVANCE DIRECTIVE DISCUSSION [facility] Start: 07-15-2022 DEPRESSION ASSESSMENT DEPRESSION ASS ESSMENT [facility] Start: 07-11-2022 Patient discharge [facility] Work Phone: Start: 07-11-2022 Referral to service [facility] Work Phone: Start: 07-10-2022 [facility] Work Phone: Start: 07-10-2022 Following clinical p athway protocol [facility] Work Phone: Start: 07-10-2022 Assessment of risk o f venous thromboembolism [facility] Work Phone: Start: 07-10-2022 Cardiac monitoring [facility] Work Phone: Start: 07-10-2022 Care regimes management [facility] Work Phone: Start: 07-10-2022 Catheterization of vein [facility] Work Phone: Start: 07-10-2022 Continuous pulse oximetry [facility] Work Phone: Start: 07-10-2022 Elevation of head of bed [facility] Work Phone: Start: 07-10-2022 Exercises [facility] Work Phone: Start: 07-10-2022 Fall prevention [facility] Work Phone: Start: 07-10-[address]ed interventions [facility] Work Phone: Start: 07-10-2022 Incentive spirometry [facility] Work Phone: Start: 07-10-2022 Insertion of cathete r into peripheral vein [facility] Work Phone: Start: 07-10-2022 Introduction of urin barrington catheter [facility] Work Phone: Start: 07-10-2022 Measuring intake and output [facility] Work Phone: Start: 07-10-2022 Notification of physician [facility] Work Phone: Start: 07-10-2022 Oxygen therapy [facility] Work Phone: Start: 07-10-2022 Providing care accor ding to standard [facility] Work Phone: Start: 07-10-2022 Provision of activit y privileges [facility] Work Phone: Start: 07-10-2022 Referral to trial justice [facility] Work Phone: Start: 07-10-2022 Referral to occupati onal therapist [facility] Work Phone: Start: 07-10-2022 Referral to service [facility] Work Phone: Start: 07-10-2022 Tobacco use cessatio n education [facility] Work Phone: Start: 07-10-2022 [facility] Work Phone: Start: 07-10-2022 Patient referral to dietitian [facility] Work Phone: Start: 07-09-2022 Admission procedure [facility] Work Phone: Start: 03-15-2022 HEMOGLOBIN/HEMATOCRIT HEMOGLOBIN/HEM ATOCRIT [facility] Start: 03-15-2022 Influenza vaccination INFLUENZA (#1) [facility] Start: 03-07-2022 End: 05-07-2022 Comprehensive metabolic 2000 panel - Serum or Plasma [facility] Work Phone: Comment on above: Expected: 03/07/2022 , Expires: 05/07/2022 Start: 03-02-2022 [facility] Work Phone: Start: 02-27-2022 Hemoglobin A1c/Hemoglobin.total in Blood HBA1C [facility] Start: 02-20-2022 Hepatitis C antibody , confirmatory test DILATED RETINAL EXAM [facility] Start: 01-30-2022 End: 04-01-2022 ALBUMIN/CREAT RATIO RND UR ALBUMIN/CREAT RATIO RND UR Lab Routine Type 2 diabetes mellitus with stage 3 chronic kidney disease, with long-term current use of insulin (HCC) Expected: 01/30/2022, Expires: 04/01/[address] [facility] Work Phone: Comment on above: Expected: 01/30/2022 , Expires: 04/01/2022 Start: 01-30-2022 End: 04-01-2022 Hemoglobin A1c in Blood HGB A1C Lab Routine Type 2 diabetes mellitus with stage 3 chronic kidney disease, with long-term current use of insulin (HCC) Expected: 01/30/2022, Expires: 04/01/[address] [facility] Work Phone: Comment on above: Expected: 01/30/2022 , Expires: 04/01/2022 Start: 01-30-2022 End: 04-01-2022 SCHEDULE LAB TESTING SCHEDULE LAB TESTING Lab Routine Expected: 01/30/2022, Expires: 04/01/[address] [facility] Work Phone: Comment on above: Expected: 01/30/2022 , Expires: 04/01/2022 Start: 01-05-2022 End: 03-07-2022 Magnesium [Mass/volume] in Serum or Plasma MAGNESIUM BLD Lab Routine Altered mental status, unspecified altered mental status type Expected: 01/05/2022, Expires: 03/07/[address] [facility] Work Phone: Comment on above: Expected: 01/05/2022 , Expires: 03/07/2022 Start: 01-05-2022 End: 03-07-2022 Methylmalonate [Moles/volume] in Serum or Plasma METHYLMALONIC ACID Lab Routine Altered mental status, unspecified altered mental status type Expected: 01/05/2022, Expires: 03/07/[address] [facility] Work Phone: Comment on above: Expected: 01/05/2022 , Expires: 03/07/2022 Start: 01-01-2022 End: 03-03-2022 25-hydroxyvitamin D3 [Mass/volume] in Serum or Plasma [facility] Work Phone: Comment on above: Expected: 01/01/2022 , Expires: 03/03/2022 Start: 01-01-2022 End: 03-03-2022 Lipid 1996 panel - Serum or Plasma [facility] Work Phone: Comment on above: Expected: 01/01/2022 , Expires: 03/03/2022 Start: 12-30-2021 Blood chemistry [facility] Work Phone: Start: 12-29-2021 Patient discharge [facility] Work Phone: Start: 12-28-2021 Admission procedure [facility] Work Phone: Start: 12-27-2021 End: 12-28-2021 [facility] Work Phone: Start: 12-27-2021 Oxygen therapy [facility] Work Phone: Start: 12-27-2021 Incentive spirometry [facility] Work Phone: Start: 12-27-2021 Admission procedure [facility] Work Phone: Start: 12-27-2021 Assessment of risk o f venous thromboembolism [facility] Work Phone: Start: 12-27-2021 Following clinical p athway protocol [facility] Work Phone: Start: 12-27-2021 Insertion of cathete r into peripheral vein [facility] Work Phone: Start: 12-27-2021 Measuring intake and output [facility] Work Phone: Start: 12-27-2021 Providing care accor ding to standard [facility] Work Phone: Start: 12-27-2021 End: 12-27-2021 Referral to service [facility] Work Phone: Start: 12-06-2021 Bacteria identified in Blood by Culture Blood Culture [facility] Work Phone: Start: 11-23-2021 3 comp foot exam completed DIABETIC FOOT EXAM [facility] Start: 11-16-2021 Hepatitis B screening URINE ALBUMIN:CREATININE RATIO [facility] Start: 11-16-2021 Hepatitis B surface antibody level LDL CHOLESTEROL [facility] Start: 10-28-2021 Adult depression scr eening assessment DEPRESSION SCREENING [facility] Start: 09-15-2021 COVID-19 VACCINE (4 - Booster for Pfizer series) COVID-19 VACCINE (4 - Booster for Pfizer series) [facility] Start: 07-15-2021 ADVANCE DIRECTIVE DISCUSSION ADVANCE DIRECTIVE DISCUSSION [facility] Start: 07-15-2021 DEPRESSION ASSESSMENT DEPRESSION ASS ESSMENT [facility] Start: 03-12-2021 Colonoscopy COLONOSCOPY [facility] Start: 03-12-2021 COLORECTAL CANCER SCREENING COLORECTAL CANCER SCREENING [facility] Start: 12-25-2020 Urine microalbumin profile DTA P,TDAP,TD (3 - Td or Tdap) [facility] Start: 10-12-1992 COLOGUARD (FIT-DNA) COLOGUARD (FIT-D NA) [facility] Start: 10-12-[address] [facility] Start: 10-12-1992 FECAL OCCULT BLOOD FECAL OCCULT BLOO D [facility] Start: 10-12-1992 SIGMOIDOSCOPY SIGMOIDOSCOPY [facility] Start: 10-12-1965 BP CONTROLLED (<130/80) BP CONTROLLE D (<130/80) [facility] Acid fast bacilli culture [facility] Alanine aminotransfe rase [Enzymatic activity/volume] in Serum or Plasma [facility] Aspartate aminotrans ferase [Enzymatic activity/volume] in Serum or Plasma [facility] Bacteria identified in Blood by Culture Blood Culture [facility] Bacteria identified in Urine by Culture Urine Culture [facility] Creatine kinase [Enz ymatic activity/volume] in Serum or Plasma [facility] End: 01-05-2023 EPIL EEG ROUTINE EPIL EEG ROUTINE NEUROLOGY Routine Altered mental status, unspecified altered mental status type 1 Occurrences starting 01/05/2022 until 01/05/[address] [facility] Work Phone: Comment on above: 1 Occurrences starti ng 01/05/2022 until 01/05/2023 Fungus identified in Unspecified specimen by Culture [facility] Fungus identified in Unspecified specimen by Fungus stain [facility] Lipid 1996 panel - S chavez or Plasma [facility] Magnesium [Mass/volu me] in Serum or Plasma [facility] Magnesium [Mass/volu me] in Serum or Plasma [facility] Mycobacterium sp identified in Unspecified specimen by Organism specific culture [facility] Mycobacterium sp identified in Unspecified specimen by Organism specific culture [facility] Patient Education [facility] Work Phone: Patient referral [facility] Work Phone: PT PLAN OF CARE CERTIFICATION PT PLAN OF CARE CERTIFICATION Procedures Routine Abnormality of gait due to impairment of balance Ordered: 01/12/[address] [facility] Comment on above: Ordered: 01/12/2022 PT PLAN OF CARE CERTIFICATION PT PLAN OF CARE CERTIFICATION Procedures Routine Abnormality of gait due to impairment of balance Ordered: 03/09/[address] [facility] Comment on above: Ordered: 03/09/2022 SURGICAL PATHOLOGY [facility] Work Phone: Comment on above: Release Upon Orderin g for 1 Occurrences starting 10/10/2021, 1 completed Urine culture [facility] Urine culture [facility] Immunizations Immunization Date Immunization Notes Care Provider Yasir quintero 04-06-2022 COVID-19 booster vaccine, age 12+ yr, bivalent (PFIZER-BIONTECH) Roselia Podlogar VICE PRESIDENT 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 Luis Caldera MD Work Phone: [facility] 04-06-2022 influenza, high dose seasonal, preservative-free Dr. Maggy Roberts Work Phone: [facility] 04-06-2022 influenza, high-dose , quadrivalent vaccine (FLUZONE HIGH DOSE QUADRIVALENT) Roselia Podlogar VICE PRESIDENT OF CUSTOMER SERVICE.DAMAGE APPRAISER Work Phone: [facility] 03-28-2022 influenza, injectabl e, quadrivalent, preservative free Dr. Maggy Roberts Work Phone: [facility] 03-28-2022 influenza, seasonal, injectable Dr. Maggy Roberts Work Phone: [facility] 06-14-2021 Influenza, high dose seasonal Dr. Luis Caldera MD Work Phone: [facility] 06-14-2021 influenza, high dose seasonal, preservative-free Dr. Maggy Roberts Work Phone: [facility] 06-14-2021 influenza, high-dose , quadrivalent vaccine (FLUZONE HIGH DOSE QUADRIVALENT) Abdulaziz Caldera MD Work Phone: [facility] Work Phone: 05-18-2021 Covid (Pfizer) Dr. Maggy Roberts Work Phone: [facility] 02-24-2021 zoster vaccine recombinant Abdulaziz Caldera MD Work Phone: [facility] 12-13-2020 Covid (Pfizer) Dr. Ramón Caldera Work Phone: [facility] 09-30-2020 COVID-19 vaccine, ag e 12+ yr (PFIZER-BIONTECH - PURPLE TOP) Abdulaziz Caldera MD Work Phone: [facility] 09-09-2020 COVID-19 vaccine, ag e 12+ yr (PFIZER-BIONTECH - PURPLE TOP) Abdulaziz Caldera MD Work Phone: [facility] 04-16-2020 Influenza, high dose seasonal Dr. Luis Caldera MD Work Phone: [facility] 04-16-2020 influenza, high dose seasonal, preservative-free Dr. Maggy Roberts Work Phone: [facility] 04-16-2020 influenza, high-dose , quadrivalent vaccine (FLUZONE HIGH DOSE QUADRIVALENT) Abdulaziz Caldera MD Work Phone: [facility] 03-14-2020 zoster vaccine recombinant Abdulaziz Caldera MD Work Phone: [facility] Work Phone: 04-02-2019 Influenza, high dose seasonal Dr. Luis Caldera MD Work Phone: [facility] 04-02-2019 influenza, high dose seasonal, preservative-free Abdulaziz Caldera MD Work Phone: [facility] Work Phone: 05-08-2018 Influenza virus vaccine [facility] 04-15-2018 Influenza, high dose seasonal Dr. Luis Caldera MD Work Phone: [facility] 04-15-2018 influenza, high dose seasonal, preservative-free Abdulaziz Caldera MD Work Phone: [facility] 06-13-2017 Influenza, high dose seasonal Dr. Luis Caldera MD Work Phone: [facility] 06-13-2017 influenza, high dose seasonal, preservative-free Abdulaziz Caldera MD Work Phone: [facility] 06-20-2016 influenza, high dose seasonal, preservative-free Abdulaziz Caldera MD Work Phone: [facility] 11-24-2015 pneumococcal polysaccharide vaccine, 23 valent Abdulaziz Caldera MD Work Phone: [facility] 05-16-2015 Influenza, high dose seasonal Dr. Luis Caldera MD Work Phone: [facility] 05-16-2015 influenza, high dose seasonal, preservative-free Abdulaziz Caldera MD Work Phone: [facility] 10-27-2014 pneumococcal conjuga te vaccine, 13 valent Abdulaziz Caldera MD Work Phone: [facility] 10-27-2014 zoster vaccine, live Socrates jurgen Caldera MD Work Phone: [facility] 04-14-2013 Influenza virus vaccine [facility] 06-11-2011 influenza virus vaccine, unspecified formulation Abdulaziz Caldera MD Work Phone: [facility] 12-25-2010 tetanus toxoid, redu veronika diphtheria toxoid, and acellular pertussis vaccine, adsorbed Abdulaziz Caldera MD Work Phone: [facility] 04-25-2009 pneumococcal polysaccharide vaccine, 23 valent Abdulaziz Caldera MD Work Phone: [facility] 03-21-2000 diphtheria and tetan us toxoids, adsorbed for pediatric use Abdulaziz Caldera MD Work Phone: [facility] Work Phone: 02-11-1961 poliovirus vaccine, inactivated Abdulaziz Caldera MD Work Phone: [facility] Work Phone: 03-25-1959 poliovirus vaccine, inactivated Abdulaziz Caldera MD Work Phone: [facility] Work Phone: 10-16-1956 poliovirus vaccine, inactivated Abdulaziz Caldera MD Work Phone: [facility] Work Phone: 01-12-1956 poliovirus vaccine, inactivated Abdulaziz Caldera MD Work Phone: [facility] Work Phone: 12-03-1955 poliovirus vaccine, inactivated Abdulaziz Caldera MD Work Phone: [facility] Work Phone: Payers Date Payer Category Payer Self-pay [id number] 2021 Medicare [id number] 2021 Unknown [id number] 2012 Unknown HOSPITAL/MEDICAL GENERIC MEDICAL GENERIC [id number] 2012-Present [phone] [place] [address], [place] [address] Indemnity [id number] 2012 Unknown HOSPITAL/MEDICAL GENERIC MEDICAL GENERIC [id number] 2012-Present [phone] [place] [address], [place] [address] Indemnity [id number] 2012 Medicare MEDICARE MEDICAR E A AND B [id number] 2012-Present [phone] [place] [address] Medicare [id number] 2012 Medicare MEDICARE MEDICAR E A AND B [id number] 2012-Present [phone] [place] [address] Medicare [id number].[facility] 1945 Unknown [id number] 2.16.840.1.642941.3.579.2.627 Unknown [id number] .16.840.1.767063.3.579.2.462 Unknown [id number] 2.16.840.1.996318.3.579.2.462 Unknown [id number] 2..840.1.285215.3.579.2.462 Unknown [id number] ..840.1.142474.3.579.2.462 Unknown [id number] 2..840.1.541546.3.579.2.462 Unknown [id number] ..840.1.482050.3.579.2.462 Unknown [id number] 2.840.1.672804.3.579.2.462 Unknown [id number] .840.1.141502.3.579.2.462 Unknown [id number] .840.1.193509.3.579.2.462 Unknown [id number] .840.1.008262.3.579.2.462 Unknown [id number] 2.840.1.145956.3.579.2.462 Unknown [id number] .840.1.453267.3.579.2.462 Unknown [id number] .840.1.702681.3.579.2.462 Unknown [id number] .840.1.627330.3.579.2.462 Unknown [id number] .840.1.030891.3.579.2.462 Unknown [id number] 2.840.1.010236.3.579.2.462 Unknown [id number] 2..840.1.630964.3.579.2.462 Unknown [id number] 2.16.840.1.469046.3.579.2.462 Unknown [id number] 2.16.840.1.694414.3.579.2.462 Unknown [id number] 2.16.840.1.972077.3.579.2.462 Unknown [id number] 2.16.840.1.924865.3.579.2.462 Unknown [id number] 2.16840.1.586062.3.579.2.462 Unknown [id number] 2.16.840.1.542158.3.579.2.462 Unknown [id number] 2.840.1.072402.3.579.2.462 Unknown [id number] 2.840.1.440611.3.579.2.462 Unknown [id number] 2.840.1.133868.3.579.2.462 Unknown [id number] 2.840.1.036837.3.579.2.462 Unknown [id number] 2.840.1.614892.3.579.2.462 Unknown [id number] 2.840.1.190118.3.579.2.462 Unknown [id number] 2.16840.1.360999.3.579.2.462 Unknown [id number] 2.840.1.141118.3.579.2.462 Unknown [id number] 2.840.1.771744.3.579.2.462 Unknown [id number] 2.16.840.1.953559.3.579.2.462 Unknown [id number] 2.16840.1.688311.3.579.2.462 Unknown [id number] 2.16.840.1.985137.3.579.2.462 Unknown [id number] 2.16840.1.658323.3.579.2.462 Unknown [id number] 2.16.840.1.973611.3.579.2.462 Unknown [id number] 2.16.840.1.161046.3.579.2.462 Unknown [id number] 2.16.840.1.536919.3.579.2.462 Unknown [id number] 2.16.840.1.179534.3.579.2.462 Unknown [id number] 2.16.840.1.768728.3.579.2.462 Unknown [id number] 2.16.840.1.740653.3.579.2.462 Unknown [id number] 2.16.840.1.001303.3.579.2.462 Unknown [id number] 2.16.840.1.544182.3.579.2.462 Unknown [id number] 2.16840.1.941313.3.579.2.462 Unknown [id number] 2.16840.1.158952.3.579.2.462 Unknown [id number] 2.16.840.1.885771.3.579.2.462 Unknown [id number] 2.16840.1.201935.3.579.2.462 Unknown [id number] 2.16840.1.674738.3.579.2.462 Unknown [id number] 2.16840.1.439211.3.579.2.462 Unknown [id number] 2.16840.1.327419.3.579.2.462 Unknown [id number] 2.840.1.331805.3.579.2.462 Social History Date Type Detail Facility Start: 11-23-2020 End: 02-27-2025 Tobacco smoking status NHIS Never smoked tobacco [facility] Start: 09-06-2021 End: 12-03-2022 Alcohol intake Current non-drinker of alcohol (finding) [facility] Start: 1945 Sex Assigned At Not on file [facility] Start: 08-07-2021 End: 04-17-2022 Exposure to SARS-CoV-2 (event) Not sure [facility] Start: 12-06-2021 End: 05-30-2023 Tobacco smoking status NHIS Unknown if ever smoked [facility] Start: 01-10-2019 Spouse/ Signif icant Other [facility] Start: 1945 Sex Assigned At Male [facility] Work Phone: Tobacco smoking status No Smokin g Status Entered [facility] Start: 01-02-2022 End: 01-12-2022 Exposure to SARS-CoV-2 (event) Unable to assess [facility] Work Phone: Start: 11-23-2020 End: 04-06-2022 Tobacco use and exposure Smokeless tobacco non-user [facility] Work Phone: Start: 09-16-2013 Rare [facility] Start: 09-16-2013 None [facility] Start: 09-16-2013 Non-smoker [facility] Start: 11-19-2022 End: 12-03-2022 History of Social function [facility] Work Phone: Start: 11-19-2022 End: 12-03-2022 Tobacco use panel [facility] Work Phone: Adult Depression Screening Assessment 2 [facility] Work Phone: Start: 10-15-2024 End: 10-22-2024 Sex Male (finding) [facility] Medical Equipment Procedure Code Equipment Code [...] ABS FDA Start: 03-28-2018 FDA Start: 03-28-2018 ([id number]) [id number] FDA Start: 02-04-2023 ([id number]) [id number] FDA Start: 02-04-2023 ([id number]) [id number] FDA Start: 02-04-2023 FDA Start: 03-28-2018 [...] Assessment Result Facility 02-11-2025 Functional status Bedrest [facility] Work Phone: 02-13-2023 Functional status Bedrest [facility] Work Phone: 02-05-2023 Functional status Chair [facility] Work Phone: 02-04-2023 Functional status Bedrest [facility] Work Phone: 01-26-2023 Functional status Chair mode [facility] Work Phone: 01-26-2023 Functional status With Assist of 2;Bedres t [facility] Work Phone: 01-25-2023 Functional status None [facility] Work Phone: 01-08-2023 Functional status Chair [facility] Work Phone: 07-11-2022 Functional status Ambulates [facility] Work Phone: 12-29-2021 Functional status Chair [facility] Work Phone: Mental Status Date Assessment Result Facility 02-27-2025 Cognitive function Voice/Name [facility] Work Phone: 02-11-2025 Cognitive function Voice/Name;To uch/Shaking;Light Pain;Deep Pain [facility] Work Phone: 02-02-2025 Cognitive function Level Of Cons ciousness Lethargic [facility] Work Phone: 02-02-2025 Cognitive function Voice/Name;Touch/Shaki ng [facility] Work Phone: 06-03-2023 Cognitive function Voice/Name [facility] Work Phone: 02-13-2023 Cognitive function Voice/Name [facility] Work Phone: 02-11-2023 Cognitive function Awake;Drowsy [facility] Work Phone: 02-10-2023 Cognitive function Awake;Appropr iate;Follows Commands;Drowsy [facility] [facility] Work Phone: 02-05-2023 Cognitive function Voice/Name [facility] Work Phone: 02-04-2023 Cognitive function Appropriate;Cooperativ e [facility] Work Phone: 01-26-2023 Cognitive function Voice/Name [facility] Work Phone: 01-21-2023 Cognitive function Level Of Cons ciousness Drowsy;Lethargic [facility] Work Phone: 01-08-2023 Cognitive function Voice/Name [facility] Work Phone: 01-04-2023 Cognitive function Voice/Name [facility] Work Phone: 07-11-2022 Cognitive function Voice/Name [facility] Work Phone: 07-10-2022 Cognitive function Appropriate;Cooperativ e [facility] Work Phone: 03-02-2022 Cognitive function Voice/Name [facility] Work Phone: 12-29-2021 Cognitive function Voice/Name [facility] Work Phone: 12-06-2021 Cognitive function Level Of Cons ciousness Awake;Alert;Appropriate [facility] Work Phone: Clinical Notes 10-25-2014 to 03-22-2025 Note Date & Type Note Facility 03-22-2025 Procedure note [facility] Medical Services 02-27-2025 Discharge summary Note Date/Time February 27, 2025 9:28pm [facility] Medical Records Department [address] [place] [address] Emergency Department Summary 02/27/25 MR#: [id number] Acct: [id number] Name: RICHARD ROY Rep #:[id number] : 1945 79 From: Bennett Troncoso DO PCP: Kuldip Cosby DECORATING MACHINE TENDER-C Status:REG ER Location: ED HPI History of [...] send him here for further evaluation management [facility] Medical History MRSA (methicillin resistant staph [...] bisacodyl 10 mg rectal suppository 10 mg TN DAILY PRN constipation 05/30/23 Unknown History acetaminophen [...] thoracic aortic aneurysm repair Social History housing: residential current occupational status: [...] 71.2 H Lymph % (Auto) 14.2 L Letcher % (Auto) 6.1 Eos % (Auto) 7.1 [...] Clarity Clear Urine pH 6.0 Ur Specific [place] 1.010 Urine Protein 15 H Urine Glucose [...] scan would have superior sensitivity. Reading Location: [facility] Brain CT 02/27/25 20:00 IMPRESSION: No acute abnormality. Maxillary sinus mucosal thickening [facility] Chest X-Ray 02/27/25 20:20 IMPRESSION: No evidence of acute cardiopulmonary disease. Reading Location: [facility] Discharge Plan Triage Chief Complaint: [...] PRN (Reason: Insomnia) Patient Comments: PRN PER LONG-TERM MAR. memantine 10 mg Tablet 10 mg PO BID Qty: 0 0RF acetaminophen 325 mg tablet 650 mg PO .q12hrs Patient Comments: PRN PER LONG-TERM MAR bisacodyl 10 mg suppository 10 mg TN DAILY PRN (Reason: constipation) cholecalciferol (vitamin D3) [...] Primary Care Provider: Kuldip Cosby Referrals: Kuldip Cosby, DECORATING MACHINE TENDER-C [Primary Care Provider] - Activity Restrictions/Additional Instructions: Blood work did not show any acute findings here today. X-ray did not show any evidence of osteomyelitis of his foot. His head CT did not show any acute findings either. Return with worsening symptoms or any concerns. Print Language: Sammarinese Disposition Disposition: Home, Self Care What to do if you have Problems For any increased pain, shortness of breath, bleeding, nausea or vomiting, chestpain, or any unexpected problems, contact your Primary Care Provider. Call [facility] ([phone]) or report to the closest Emergency Room. Call 911 if necessary. 02/27/252127 <Electronically signed by Bennett Troncoso DO> Cosigner Signature (if applicable): CC: Kuldip Cosby ~ Signed [facility] Work Phone: 1(205) 701-614608-16-2025 Radiology Diagnostic study [facility]08-16-2025 Radiology Diagnostic study [facility]08-16-2025 Radiology Diagnostic study [facility] 02-11-2025 Progress note Author Meghana Cole [facility] Note Date/Time February 11, 2025 3:45 pm [facility] Medical Records Department [address] [place] [address] Progress Note - Surgery 02/11/25 0839 MR#: [id number] Acct: [id number] Name: RICHARD ROY Rep #:[id number] : 1945 79 From: Meghana LOZA PCP: Kuldip Cosby Status:ADM IN Location: [place] [address] Subjective Subjective He is drowsy. He reports [...] Intake and Output for Last 24 Hours 07/02/10/25 02/11/25 23:59 23:59 23:59 Intake Total 1820 [...] H 02/11/25 06:54: Estim Creat Clear Calc DECORATING MACHINE TENDER Micro: Microbiology 02/05/25 Unknown Tissue - Toe [...] from discharge. Charges/Coding Visit Charges Inpatient E&M: 68791 Subs Hosp L1 02/11/25 0845 <Electronically signed by Meghana LOZA> Cosigner Signature (if applicable): 02/11/25 7732 <Electronically signed by Aneesh Ac MD> CC: ~ Signed [facility] Work Phone: 1(800) 367-305607-31-2025 Progress note Author Kee Mejia [facility] Note Date/Time February 11, 2025 3:15 pm [facility] Medical Records Department [address] [place] [address] Progress Note 02/11/25 1339 MR#: [id number] Acct: [id number] Name: RICHARD ROY Rep #:[id number] : 1945 79 From: Kee Mejia DPM PCP: Kuldip Cosby DECORATING MACHINE TENDER-C Status:ADM IN Location: [place] [id number] Subjective Subjective Patient was seen today [...] 76.3 H, Lymph % (Auto) 9.9 L, Letcher % (Auto) 7.1, Eos % (Auto) 4.1, [...] Cosigner Signature (if applicable): CC: ~ Signed [facility] Work Phone: 1(498) 859-522307-31-2025 Discharge summary Author Hugo Cervantes [facility] Note Date/Time February 11, 2025 2:52 pm [facility] Medical Records Department [address] [place] [address] Discharge Summary 02/11/25 1444 MR#: [id number] Acct: [id number] Name: RICHARD ROY Rep #:[id number] : 1945 79 From: Hugo hollis MD PCP: Kuldip Cosby Status:ADM IN Location: [facility] [id number]- 1 Providers Date of Admission: 02/02/25 Primary Care Physician: AAYUSH Ross Consultations 02/03/25 01:20 Consult: Onc/Wound/olive pitter Routine Comment: Consult: Podiatry Routine Consulting Provider: [...] bisacodyl 10 mg rectal suppository 10 mg TN DAILY PRN constipation 05/30/23 loperamide 2 mg [...] behavioral disturbance history who presents to the [facility] ED on 02/02/2025 with history of [...] to have a woundVAC placed at the residential. His hospitalization was complicated by an ANTHONY [...] risk benefits of going home to the residential and would like to go when able. [...] % (Auto) Cancelled, Lymph % (Auto) Cancelled, Letcher % (Auto) Cancelled, Eos % (Auto) Cancelled, [...] Drop Cells Cancelled, Ovalocytes Cancelled, Stomatocytes Cancelled, [place] Bodies Cancelled, [place] Cells Cancelled, Bite Cells Cancelled, Crenated Cell [...] 76.3 H, Lymph % (Auto) 9.9 L, Letcher % (Auto) 7.1, Eos % (Auto) 4.1, [...] QHS Patient Comments: PRN PER LONG-TERM MAR. memantine 10 mg Tablet 10 mg PO BID Qty: 0 0RF acetaminophen 325 mg tablet 650 mg PO .q12hrs Patient Comments: PRN PER LONG-TERM MAR bisacodyl 10 mg suppository 10 mg TN DAILY PRN (Reason: constipation) loperamide [Anti-Diarrheal (loperamide)] [...] in before D/C Order can be placed): Alf Facility Charges/Coding Visit Charges Inpatient E&M: 09739 Disch Hosp >30min 02/11/25 1452 <Electronically signed by Hugo Cervantes MD> Cosigner Signature (if applicable): CC: Dr. Hugo Cervantes MD; Kuldip Cosby~ Signed [facility] Work Phone: [phone]) 554-258807-31-2025 Discharge summary Author Hugo Cervantes [facility] Note Date/Time February 11, 2025 2:23 pm [facility] Medical Records Department [address] [place] [address] Transfer to [facility] MR#: [id number] Acct: [id number] Name: RICHARD ROY Rep #:[id number] : [...] THE F. 02/11/25 1423<Electronically signed by Hugo F Kotsonis MD> Diet Diet Order/Speech Therapy: INPATIENT Hospital [...] noadded salt; consistency/texture adjustments as indicated per BACKUP OPERATOR. Continue Luis with breakfast and dinner to [...] QHS Patient Comments: PRN PER LONG-TERM MAR. memantine 10 mg Tablet 10 mg PO BID Qty: 0 0RF acetaminophen 325 mg tablet 650 mg PO .q12hrs Patient Comments: PRN PER LONG-TERM MAR bisacodyl 10 mg suppository 10 mg TN DAILY PRN (Reason: constipation) loperamide [Anti-Diarrheal (loperamide)] [...] in before D/C Order can be placed): Alf Facility 02/11/25 0483 <Electronically signed by Hugo Cervantes MD> Cosigner Signature (if applicable): CC: DPM Dr. Kee Mejia; Dr. Karen Aly MD; Dr. Aneesh Ac MD; Dr. Smith Leija MD; Kuldip Cosby ~ [facility] Work Phone: 1(264) [phone] [facility]07-31-2025 Progress note Author [facility] Note Date/Time February 11, 2025 10:2 8am [facility] Medical Records Department [address] [place] [address] Progress Note - Infect Disease 02/11/25 1027 MR#: [id number] Acct: [id number] Name: RICHARD ROY Rep #:[id number] : 1945 79 From: Smith mcdowell MD PCP: Kuldip Cosby Status:ADM IN Location: [place] [address] Physical Exam Narrative Angioplasty yesterday, feeling ok, [...] Cosigner Signature (if applicable): CC: ~ Signed [facility] Work Phone: 1(156) 700-448007-31-2025 Progress note Author Hugo Cervantes [facility] Note Date/Time February 11, 2025 9:30 am [facility] Medical Records Department [address] [place] [address] Progress Note - Hospitalist 02/11/25921 MR#: [id number] Acct: [id number] Name: RICHARD ROY Rep #:[id number] : 1945 79 From: Hugo hollis MD PCP: Kuldip Cosby DECORATING MACHINE TENDER-C Status:ADM IN Location: [place] [address] Subjective Subjective No issues overnight, had his [...] 76.3 H, Lymph % (Auto) 9.9 L, [place]cher % (Auto) 7.1, Eos % (Auto) 4.1, [...] DVT: Eliquis Charges/Coding Visit Charges Inpatient E&M: 58491 Subs Hosp L2 02/11/25 0930 <Electronically signed by Hugo Cervantes MD> Cosigner Signature (if applicable): CC: ~ Signed [facility] Work Phone: [phone]) 681-252407-30-2025 Procedure [facility] 02-10-2025 Consult note Author Crys Carvajal [facility] Note Date/Time February 10, 2025 12:0 4pm [facility] Medical Records Department [address] [place] [address] Pharmacokinetic/Renal -Consult 02/10/25 1203 MR#: [id number] Acct: [id number] Name: RICHARD ROY Rep #:[id number] : 1945 79 From: Crys Carvajal PCP: Kuldip Cosby Status:ADM IN Y Location: [place] [address] Consult Antibiotic Management Pharmacy has been consulted [...] Signature (if applicable): Date CC: ~ Signed [facility] Work Phone: 1(774) 513-425007-30-2025 Progress note Author Hugo Cervantes [facility] Note Date/Time February 10, 2025 9:46 am [facility] Medical Records Department [address] [place] [address] Progress Note - Hospitalist 02/10/25 0942 MR#: [id number] Acct: [id number] Name: RICHARD ROY Rep #:[id number] : 1945 79 From: Hugo hollis MD PCP: Kuldip Cosby DECORATING MACHINE TENDER-C Status:ADM IN Location: [place] [address] Subjective Subjective No issues overnight, pending angiogram [...] 73.1 H, Lymph % (Auto) 11.0 L, [place] % (Auto) 8.5, Eos % (Auto) 4.7, [...] DVT: Eliquis Charges/Coding Visit Charges Inpatient E&M: 36944 Subs Hosp L2 02/10/25 0912 <Electronically signed by Hugo Cervantes MD> Cosigner Signature (if applicable): CC: ~ Signed [facility] Work Phone: [phone]) 549-489907-29-2025 Progress note Author Aneesh Ac [facility] Note Date/Time February 09, 2025 6:11 pm [facility] Medical Records Department [address] [place] [address] Progress Note - Surgery 02/09/25 1808 MR#: [id number] Acct: [id number] Name: RICHARD ROY Rep #:[id number] : 1945 79 From: Aneesh Ac MD PCP: Kuldip Cosby DECORATING MACHINE TENDERJay Jay Status:ADM IN Location: [place] [address] Subjective Subjective Resting comfortably, eating dinner. No [...] 75.5 H, Lymph % (Auto) 10.7 L, [place] % (Auto) 7.1, Eos % (Auto) 4.5, [...] eliquis tonight/AM Charges/Coding Visit Charges Inpatient E&M: 53513 Subs Hosp L2 02/09/25 181 <Electronically signed by Aneesh Ac MD> Cosigner Signature (if applicable): CC: ~ Signed [facility] Work Phone: 1(610) 482-393107-29-2025 Progress note Author Smith Robertoninger [facility] Note Date/Time February 09, 2025 10:1 7am [facility] Medical Records Department [address] [place] [address] Progress Note - Infect Disease 02/09/25 1016 MR#: [id number] Acct: [id number] Name: RICHARD ROY Rep #:[id number] : 1945 79 From: Smith mcdowell MD PCP: Kuldip Cosby DECORATING MACHINE TENDER-C Status:ADM IN Location: [place] [address] Physical Exam Narrative Feeling fine, no pain [...] Cosigner Signature (if applicable): CC: ~ Signed [facility] Work Phone: 1(595) 531-612207-29-2025 Progress note Author Hugo Cervantes [facility] Note Date/Time February 09, 2025 9:14 am [facility] Medical Records Department [address] [place] [address] Progress Note - Hospitalist 02/09/2509 MR#: [id number] Acct: [id number] Name: RICHARD ROY Rep #:[id number] : 1945 79 From: Hugo hollis MD PCP: Kuldip Cosby DECORATING MACHINE TENDER-C Status:ADM IN Location: [place] [address] Subjective Subjective Doing well, no issues overnight. [...] 75.5 H, Lymph % (Auto) 10.7 L, [place] % (Auto) 7.1, Eos % (Auto) 4.5, [...] DVT: Eliquis Charges/Coding Visit Charges Inpatient E&M: 52518 Subs Hosp L2 02/09/25 0914 <Electronically signed by Hugo Cervantes MD> Cosigner Signature (if applicable): CC: ~ Signed [facility] Work Phone: 1([phone]) 308-888507-29-2025 Consult note Author Renetta Gonsales [facility] Note Date/Time February 09, 2025 7:10 am [facility] Medical Records Department [address] [facility] [place] [address] Pharmacokinetic/Renal -Consult 02/08/251930 MR#: [id number] Acct: [id number] Name: RICHARD ROY Rep #:[id number] : 1945 79 From: Renetta Gonsales PCP: Kuldip Cosby Status:ADM IN Y Location: [place] [address] Consult Antibiotic Management Pharmacy has been consulted [...] Date Hugo Cervantes MD CC: ~ Signed [facility] Work Phone: [phone]) [phone] Progress note Author Kee Mejia [facility] Note Date/Time February 08, 2025 11:1 9pm [facility] Medical Records Department [address] [place] [address] Progress Note 02/08/25 1900 MR#: [id number] Acct: [id number] Name: RICHARD ROY Rep #:[id number] : 1945 79 From: Kee Mejia DPM PCP: Kuldip Cosby DECORATING MACHINE TENDERJay Jay Status:ADM IN Location: [place] [address] Subjective Subjective Patient seen today for follow [...] 72.7 H, Lymph % (Auto) 11.5 L, [place] % (Auto) 9.5, Eos % (Auto) 4.6, [...] Discussed with Dr. Cervantes and nursing. 02/08/25 1380 <Electronically signed by Kee Mejia DPM> Kee Mejia DPM Cosigner Signature (if applicable): CC: ~ Signed [facility] Work Phone: [phone]) 152-328207-28-2025 Consult note Author Smith Leija [facility] Note Date/Time February 08, 2025 3:37 pm [facility] Medical Records Department [address] [place] [address] Consultation - Infectious Dx 02/08/25 1532 MR#: [id number] Acct: [id number] Name: RICHARD ROY Rep #:[id number] : 1945 79 From: Smith mcdowell MD PCP: Kuldip Cosby Status:ADM IN Location: [facility] [id number]- [id number] Assessment & Plan Assessment/Plan (1) Acute [...] do full ROS due to mental status [facility] History MRSA (methicillin resistant staph aureus) [...] bisacodyl 10 mg rectal suppository 10 mg TN DAILY PRN constipation 05/30/23 Unknown History loperamide [...] thoracic aortic aneurysm repair Social History housing: residential current occupational status: [...] 72.7 H, Lymph % (Auto) 11.5 L, [place] % (Auto) 9.5, Eos % (Auto) 4.6, [...] Signature (if applicable): CC: Kuldip Cosby~ Signed [facility] Work Phone: 1([phone]) 504-374207-28-2025 Progress note Author Hugo Cervantes [facility] Note Date/Time February 08, 2025 8:55 am [facility] Medical Records Department [address] [place] [address] Progress Note - Hospitalist 02/08/25 0827 MR#: [id number] Acct: [id number] Name: RICHARD ROY Rep #:[id number] : 1945 79 From: Hugo hollis MD PCP: Kuldip Cosby Status:ADM IN Location: [place] [address]- Subjective Subjective Doing well, no issues overnight. [...] 72.7 H, Lymph % (Auto) 11.5 L, [place] % (Auto) 9.5, Eos % (Auto) 4.6, [...] DVT: Eliquis Charges/Coding Visit Charges Inpatient E&M: 00889 Subs Hosp L2 02/08/25 0855 <Electronically signed by Hugo Cervantes MD> Cosigner Signature (if applicable): CC: ~ Signed [facility] Work Phone: [phone] Progress note Author Kee Mejia [facility] Note Date/Time February 07, 2025 9:40 am [facility] Medical Records Department [address] [place] [address] Progress Note 02/07/2513 MR#: [id number] Acct: [id number] Name: KIRILL DAVID Rep #:[id number] : 1945 79 From: Kee Mejia DPM PCP: Kuldip Cosby DECORATING MACHINE TENDER-C Status:ADM IN Location: [place] [id number]- 1 Subjective Subjective Patient was seen this [...] / 2872.5 315 / 315 Output Total / 2009 1850 / 1850 1650 / 1650 [...] (Auto) 66.1, Lymph % (Auto) 15.0 L, [place] % (Auto) 9.5, Eos % (Auto) 6.8 [...] Cosigner Signature (if applicable): CC: ~ Signed [facility] Work Phone: 1(328) 326-384907-27-2025 Progress note Author Hugo Cervantes [facility] Note Date/Time February 07, 2025 9:32 am [facility] Medical Records Department [address] [place] [address] Progress Note - Hospitalist 02/07/25917 MR#: [id number] Acct: [id number] Name: RICHARD ROY Rep #:[id number] : 1945 79 From: Hugo hollis MD PCP: Kuldip Cosby DECORATING MACHINE TENDERJay Jay Status:ADM IN Location: [place] [address] Subjective Subjective Doing well, wound looks well. [...] (Auto) 66.1, Lymph % (Auto) 15.0 L, [place] % (Auto) 9.5, Eos % (Auto) 6.8 [...] DVT: Eliquis Charges/Coding Visit Charges Inpatient E&M: 37891 Subs Hosp L2 02/07/25 0932 <Electronically signed by Hugo Cervantes MD> Cosigner Signature (if applicable): CC: ~ Signed [facility] Work Phone: [phone]) 171-562207-27-2025 Consult note Author Haile Bautista [facility] Note Date/Time February 07, 2025 9:18 am [facility] Medical Records Department [address] [place] [address] Pharmacokinetic/Renal -Consult 02/06/252218 MR#: [id number] Acct: [id number] Name: RICHARD ROY Rep #:[id number] : 1945 79 From: Haile Bautista PCP: Kuldip Cosby Status:ADM IN Y Location: [place] [address] Consult Antibiotic Management Pharmacy has been consulted [...] Preliminary Meth. resistant Staph. 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 Gram positive organism 02/03/25 18:00 Wound - [...] @ 0600 02/06/252221 <Electronically signed by Haile mcdowell> Date _ Haile Bautista 02/07/2518 <Electronically signed by Hugo painter MD> Cosigner Signature (if applicable): Date Hugo Cervantes MD CC: ~ Signed [facility] Work Phone: [phone]) 332-150107-27-2025 Consult note Author Haile Bautista [facility] Note Date/Time February 07, 2025 9:18 am [facility] Medical Records Department [address] [facility] [place] [address] Pharmacokinetic/Renal -Consult 02/07/25 0650 MR#: [id number] Acct: [id number] Name: RICHARD ROY Rep #:[id number] : 1945 79 From: Haile Bautista PCP: Kuldip Cosby Status:ADM IN Location: [place] [address] Consult Antibiotic Management Pharmacy has been consulted [...] Date Hugo Cervantes MD CC: ~ Signed [facility] Work Phone: 1(360) [phone] Consult note Author Hugo Interiano [facility] Note Date/Time February 06, 2025 4:31 pm [facility] Medical Records Department [address] [place] [address] Pharmacokinetic/Renal -Consult 02/06/25 1630 MR#: [id number] Acct: [id number] Name: RICHRAD ROY Rep #:[id number] : 1945 79 From: Hugo Garcia [facility] PCP: Kuldip Cosby Status:ADM IN Location: [place] [address] Consult Antibiotic Management Pharmacy has been consulted [...] Preliminary Meth. resistant Staph. 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 Gram positive organism 02/03/25 18:00 Wound - [...] 02/06/25 1631 <Electronically signed by Hugo Gallardo [facility]> Date _ Hugo Interiano [facility] Cosigner Signature (if applicable): Date CC: ~ Signed [facility] Work Phone: [phone] 143-161407-26-2025 Progress note Author Kee Mejia [facility] Note Date/Time February 06, 2025 10:5 8am [facility] Medical Records Department [address] [place] [address] Progress Note 02/06/25 1054 MR#: [id number] Acct: [id number] Name: RICHARD ROY Rep #:[id number] : 1945 79 From: Kee Mejia DPM PCP: Kuldip Cosby Status:ADM IN Location: [facility] [id number]- 1 Subjective Subjective Patient was seen this [...] 425 Output Total 850 / 850 / 2010 1200 / 1200 Balance 961.25 [...] 74.2 H, Lymph % (Auto) 10.1 L, [place] % (Auto) 8.6, Eos % (Auto) 5.9 [...] Preliminary Meth. resistant Staph. 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 Gram positive organism 02/03/25 18:00 Wound - [...] change. No complication. Reading Location: [facility] Physical Exam Const alert and no apparent [...] Signature (if applicable): Date cc: ~* Signed [facility] Work Phone: 1(420) 470-839407-26-2025 Progress note Author Hugo Cervantes [facility] Note Date/Time February 06, 2025 10:2 6am [facility] Medical Records Department [address] [place] [address] Progress Note - Hospitalist 02/06/25 0906 MR#: [id number] Acct: [id number] Name: RICHARD ROY Rep #:[id number] : 1945 79 From: Hugo hollis MD PCP: Kuldip Cosby DECORATING MACHINE TENDERJay Jay Status:ADM IN Location: [place] [address] Subjective Subjective No issues overnight, tolerated surgery [...] 74.2 H, Lymph % (Auto) 10.1 L, [place] % (Auto) 8.6, Eos % (Auto) 5.9 [...] Preliminary Meth. resistant Staph. 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 Gram positive organism 02/05/25 00:05 Nasal Secretion [...] change. No complication. Reading Location: [facility] Physical Exam Narrative General: Alert, Oriented x1-2, [...] DVT: Lovenox Charges/Coding Visit Charges Inpatient E&M: 91379 Subs Hosp L2 02/06/25 1026 <Electronically signed by Hugo Cervantes MD> Cosigner Signature (if applicable): CC: ~ Signed [facility] Work Phone: 1(987) 633-300407-25-2025 Consult note Author Kareem Pabon [facility] Note Date/Time February 05, 2025 2:23 pm [facility] Medical Records Department [address] [place] [address] Anesthesia Postop Eval I 02/05/25 1422 MR#: [id number] Acct: [id number] Name: RICHARD ROY Rep #:[id number] : 1945 79 From: Kareem REDMAN PCP: Kuldip CosbyC Status:ADM IN Y Race: C Location: [place] [address] 11-12 Anesthesia: Postop Eval I Current Vital [...] CRNA Cosigner Signature: Date CC: ~ Signed [facility] Work Phone: 1([phone]) 371-616607-25-2025 Radiology Diagnostic study [facility]07-25-2025 Consult note [facility] Note Date/Time February 05, 2025 1:16 pm [facility] Medical Records Department [address] [place] [address] Pre-Anesthesia Evaluation 02/05/25 1258 MR#: [id number] Acct: [id number] Name: RICHARD ROY Rep #:[id number] : 1945 79 From: Vega Hahn MD PCP: Kuldip Cosby Status:ADM IN Y Race: C Location: [place] [address] 11-12 ASA Classification* ASA Classification ASA Classification: 4 [...] ray amputation Anesthesia History Anesthesia History - director digital: Anesthesia History - director digital Hx Hospitalization Yes: GI BLEED 05/30/23 11:36 [...] take am of surgery PONV PONV - director digital: PONV - director digital Female HX of Motion Sickness HX of N/V After Surgery Non-Smoker Duration of Surgery greater than 60 minutes Number of Risk Factors PONV Score Height & Weight Height & Weight: Anesthesia: Height & Weight Height 6 ft 02/05/25 11:18 Weight: 118 kg 02/05/25 11:18 Body Mass Index (BMI) 35.2 02/05/25 11:18 Respiratory Assessment Respiratory Assessment - director digital: Respiratory Tract Infection Hx - director digital Hx Respiratory Tract Infection Yes: pneumonia 02/05/25 02:17 STOP Sleep Apnea STOP Sleep Apnea - director digital: STOP Sleep Apnea - director digital Hx Hypertension Yes 02/03/25 10:30 Hx Sleep [...] Tobacco Use History Tobacco Use History - director digital: Tobacco Use History - director digital Tobacco Use Smoking Status Never smoker 02/03/25 01:28 Hx Tobacco Use No 02/03/25 01:28 Years Smoking Packs Smoked per Day Smoking Cessation Date was within the last 15 years Hx Smoking Cessation Date Hx Smoking Cessation No 02/03/25 01:28 Counseling Hematologic Medial History Hematologic Hx - director digital: Hematologic Medical Hx - detacker Hx of Blood Transfusion Hx of Transfusion [...] confused, unrespo /Reproduction History /Reproductive History - director digital: /Reproductive Hx- director digital Hx Now Gestational Age (in weeks): EDC: Hx Hx Para Hx Section SAB Active Medications Active Medications: Current Medications Generic Name Dose Route Start Last Admin Trade Name Freq PRN Reason Stop Dose Admin Acetaminophen 650 mg 02/03/25 01:20 02/05/25 00:05 Acetaminophen 325 Mg Tablet PO 650 mg Q4H PRN PRN Administration Fever, pain 1-10/10 Al Hydroxide/Mg Hydroxide 30 ml 02/03/25 01:20 [...] Tablet PO Not Given DAILY@1200 [facility] Glucagon 1 mg 02/03/25 01:20 Glucagon 1 [...] 25 Mg Tablet PO 25 mg DAILY [facility] Administration Protocol Nystatin 1 applic 02/05/25 10:00 02/05/25 09:48 Nystatin Powder 15gm Bottle TOPICAL 1 applic BID [facility] Administration Protocol Ondansetron HCl 4 mg 02/03/25 [...] Given 0700,1100,1600 [facility] Tamsulosin HCl 0.4 mg 02/03/25 22:00 02/04/25 22:14 Tamsulosin Hcl 0.4 Mg Capsule PO 0.4 mg QHS FRED Administration Vancomycin Protocol 1 lab 02/06/25 08:30 Vancomycin Trough/Random Due MC 02/06/25 10:30 DAILY [facility] PFSH Medical History MRSA (methicillin resistant staph [...] bisacodyl 10 mg rectal suppository 10 mg TN DAILY PRN constipation 05/30/23 Unknown History loperamide [...] History sprinkle, ext. release 24 hr (Kapspargo Hetalinkle) Allergy/AdvReac Type Severity Reaction Status Date / Time propofol AdvReac Other Verified 02/02/25 19:42 Family History Mother Heart disease Diabetes Hypertension Father Heart disease Surgical History History of AAA (abdominal aortic aneurysm) repair History of foot surgery Hx of abdominal surgery H/O aortic valve repair History of thoracic aortic aneurysm repair Social History housing: residential current occupational status: retired Smoking Status: Never smoker alcohol intake: never substance use type: does not use Review of Systems (Anesthesia) ROS Narrative System reviewed and no additional complaints, except as documented. 02/05/25 1316 <Electronically signed by Vega sales MD> Date _ Vega Hahn MD Cosign Signature: Date CC: ~ Signed [facility] Work Phone: 1(142) 778-544107-25-2025 Procedure [facility] 02-05-2025 Progress note Author Hugo Cervantes [facility] Note Date/Time February 05, 2025 8:40 am [facility] Medical Records Department [address] [place] [address] Progress Note - Hospitalist 02/05/25 0838 MR#: [id number] Acct: [id number] Name: RICHARD ROY Rep #:[id number] : 1945 79 From: Hugo hollis MD PCP: Kuldip Cosby DECORATING MACHINE TENDERJay Jay Status:ADM IN Location: [place] [address] Subjective Subjective No issues overnight. Hemoglobin and [...] 76.4 H, Lymph % (Auto) 9.4 L, Letcher % (Auto) 8.0, Eos % (Auto) 5.2 [...] DVT: Lovenox Charges/Coding Visit Charges Inpatient E&M: 15112 Subs Hosp L2 02/05/25 0840 <Electronically signed by Hugo Cervantes MD> Cosigner Signature (if applicable): CC: ~ Signed [facility] Work Phone: 1(857) 720-512507-25-2025 Consult note Author Deangelo Quintero [facility] Note Date/Time February 04, 2025 10:0 7pm [facility] Medical Records Department [address] [place] [address] Pharmacokinetic/Renal -Consult 02/04/252206 MR#: [id number] Acct: [id number] Name: RICHARD ROY Rep #:[id number] : 1945 79 From: Deangelo Calvillo od PCP: Kuldip Cosby DECORATING MACHINE TENDER-C Status:ADM IN Y Location: [place] [address] Consult Antibiotic Management Pharmacy has been consulted [...] on [date and time ordered]: 02/06 @ 92902/04/252206 <Electronically signed by Deangelo north> Date _ Deangelo Grant Signature (if applicable): Date CC: ~ Signed [facility] Work Phone: 1(127) 269-863507-24-2025 Consult note Author Meghana Cole [facility] Note Date/Time February 04, 2025 7:36 pm [facility] Medical Records Department [address] [place] [address] Consultation - Surgical 02/04/25729 MR#: [id number] Acct: [id number] Name: RICHARD ROY Rep #:[id number] : 1945 79 From: Meghana LOZA PCP: Kuldip Cosby DECORATING MACHINE TENDERJay Jay Status:[facility]M [facility] Assessment & Plan Assessment/Plan (1) [...] a 79 M who presented to the [facility] ER on 02/02/25 with new cough, [...] from that. Heis on Eliquis for Afib. [facility] Medical History (Updated 02/04/25 @ [...] bisacodyl 10 mg rectal suppository 10 mg TN DAILY PRN constipation 05/30/23 Unknown History loperamide [...] thoracic aortic aneurysm repair Social History housing: residential current occupational status: [...] 80.0 H, Lymph % (Auto) 5.3 L, Letcher % (Auto) 9.4, Eos % (Auto) 4.1, [...] Loaiza RVT Charges/Coding Visit Charges Inpatient E&M: 63489 Init Hosp L2 02/04/251905 <Electronically signed by Meghana LOZA> Cosigner Signature (if applicable): 02/04/251935 <Electronically signed by Aneesh Ac MD> CC: Kuldip Cosby~ Signed [facility] Work Phone: 1(561) 158-695707-24-2025 Progress note Author Kee Mejia [facility] Note Date/Time February 04, 2025 3:41 pm [facility] Medical Records Department [address] [place] [address] Progress Note 02/04/25 1537 MR#: [id number] Acct: [id number] Name: RICHARD ROY Rep #:[id number] : 1945 79 From: Kee Mejia DPM PCP: Kuldip Cosby Status:ADM IN Location: [place] [address] Subjective Subjective Patient was seen today for [...] 80.0 H, Lymph % (Auto) 5.3 L, Letcher % (Auto) 9.4, Eos % (Auto) 4.1, [...] discussed wound status with wound nurse. 02/04/25 8577 <Electronically signed by Kee Mejia DPM> Kee Mejia DPM Cosigner Signature (if applicable): CC: ~ Signed [facility] Work Phone: 1(438) 211-223807-24-2025 Consult note Author Crys Carvajal [facility] Note Date/Time February 04, 2025 10:5 3am [facility] Medical Records Department [address] [place] [address] Pharmacokinetic/Renal -Consult 02/04/25 1052 MR#: [id number] Acct: [id number] Name: RICHARD ROY Rep #:[id number] : 1945 79 From: Crys Carvajal PCP: Kuldip Cosby DECORATING MACHINE TENDERJay Jay Status:ADM IN Y Location: [place] [address] Consult Antibiotic Management Pharmacy has been consulted [...] Signature (if applicable): Date CC: ~ Signed [facility] Work Phone: 1(716) 697-330207-24-2025 Progress note Author Hugo Cervantes [facility] Note Date/Time February 04, 2025 9:05 am [facility] Medical Records Department [address] [place] [address] Progress Note - Hospitalist 02/04/25901 MR#: [id number] Acct: [id number] Name: RICHARD ROY Rep #:[id number] : 1945 79 From: Hugo hollis MD PCP: Kuldip Cosby DECORATING MACHINE TENDER-C Status:ADM IN Location: [place] [id number]- [id number] Subjective Subjective No issues overnight, awaiting MRI [...] 80.0 H, Lymph % (Auto) 5.3 L, Letcher % (Auto) 9.4, Eos % (Auto) 4.1, [...] DVT: Lovenox Charges/Coding Visit Charges Inpatient E&M: 14447 Subs Hosp L2 02/04/25 0905 <Electronically signed by Hugo Cervantes MD> Cosigner Signature (if applicable): CC: ~ Signed [facility] Work Phone: 1(902) 363-352307-24-2025 Consult note Author Kee Mejia [facility] Note Date/Time February 03, 2025 11:4 9pm [facility] Medical Records Department [address] [place] [address] Consultation 02/03/25 1815 MR#: [id number] Acct: [id number] Name: RICHARD ROY Rep #:[id number] : 1945 79 From: Kee Mejia DPM PCP: Kuldip Cosby Status:ADM IN Location: [facility] NCM505- 1 Assessment & Plan Assessment/Plan (1) Cellulitis [...] to his pacemaker - I discussed with hydraulic technician and they are going to check [...] of heart disease and has a pacemaker. [facility] Medical History History of stress [...] bisacodyl 10 mg rectal suppository 10 mg TN DAILY PRN constipation 05/30/23 Unknown History loperamide [...] thoracic aortic aneurysm repair Social History housing: residential current occupational status: [...] 86.2 H, Lymph % (Auto) 3.6 L, Letcher % (Auto) 8.7, Eos % (Auto) 0.6, [...] Clarity Clear, Urine pH 5.0, Ur Specific [place] 1.015, Urine Protein 30 H, Urine Glucose [...] 83.8 H, Lymph % (Auto) 4.0 L, Letcher % (Auto) 8.4, Eos % (Auto) 2.9, [...] 3. Chronic paranasal sinus disease. Reading Location: [facility] Chest X-Ray 02/02/25 20:20 IMPRESSION: Pulmonary findings as above. Reading Location: [facility] Foot X-Ray 02/02/25 20:20 IMPRESSION: No acute osseous abnormality. Reading Location: [facility] Extremity Arterial Study 02/03/25 10:01 Interpretation Summary [...] (if applicable): cc: Kuldip Cosby ~* Signed [facility] Work Phone: 1(850) 283-555607-23-2025 [facility]07-23-2025 Progress note Author Hugo Cervantes [facility] Note Date/Time February 03, 2025 11:5 6am [facility] Medical Records Department [facility] [address] [place] [address] Progress Note - Hospitalist 02/03/25 0956 MR#: [id number] Acct: [id number] Name: RICHARD ROY Rep #:[id number] : 1945 79 From: Hugo hollis MD PCP: Kuldip Cosby DECORATING MACHINE TENDER-C Status:ADM IN Location: [place] [address] Subjective Subjective No issues overnight, maintaining oxygen [...] 86.2 H, Lymph % (Auto) 3.6 L, Letcher % (Auto) 8.7, Eos % (Auto) 0.6, [...] Clarity Clear, Urine pH 5.0, Ur Specific [place] 1.015, Urine Protein 30 H, Urine Glucose [...] 83.8 H, Lymph % (Auto) 4.0 L, Letcher % (Auto) 8.4, Eos % (Auto) 2.9, [...] 3. Chronic paranasal sinus disease. Reading Location: [facility] Chest X-Ray 02/02/25 20:20 IMPRESSION: Pulmonary findings as above. Reading Location: [facility] Foot X-Ray 02/02/25 20:20 IMPRESSION: No acute osseous abnormality. Reading Location: [facility] Physical Exam Narrative General: Alert but drowsy, [...] DVT: Lovenox Charges/Coding Visit Charges Inpatient E&M: 85920 Subs Hosp L2 02/03/25 1156 <Electronically signed by Hugo Cervantes MD> Cosigner Signature (if applicable): CC: ~ Signed [facility] Work Phone: 1(742) 441-339607-23-2025 Consult note Author Aneesh Suazo [facility] Note Date/Time February 03, 2025 2:11 am [facility] Medical Records Department [address] [place] [address] Pharmacokinetic/Renal -Consult 02/03/25 0208 MR#: [id number] Acct: [id number] Name: KIRILLRICHARD Carrillo DAVID Rep #:[id number] : 1945 79 From: Aneesh Suazo PCP: Kuldip Cosby Status:ADM IN Y Location: [place] [address] Consult Antibiotic Management Pharmacy has been consulted [...] Date Karen Aly MD CC: ~ Signed [facility] Work Phone: 1(240) 282-999707-23-2025 History and physical note Author Karen Aly [facility] Note Date/Time February 03, 2025 12:2 6am [facility] Medical Records Department [address] [place] [address] H&P Exam - Hospitalist 02/02/251 MR#: [id number] Acct: [id number] Name: RICHARD ROY Rep #:[id number] : 1945 79 From: Karen Aly MD PCP: Kuldip Cosby DECORATING MACHINE TENDER-C Status:ADM IN Location: [facility] [id number] HPI - General General Date of Admission: [...] behavioral disturbance history who presents to the [facility] ED on 02/02/2025 with history of [...] to magnesium 4 g IV x 1. [facility] Medical History History of stress [...] bisacodyl 10 mg rectal suppository 10 mg TN DAILY PRN constipation 05/30/23 Unknown History loperamide [...] thoracic aortic aneurysm repair Social History housing: residential current occupational status: [...] 86.2 H, Lymph % (Auto) 3.6 L, Letcher % (Auto) 8.7, Eos % (Auto) 0.6, [...] Clarity Clear, Urine pH 5.0, Ur Specific [place] 1.015, Urine Protein 30 H, Urine Glucose [...] 3. Chronic paranasal sinus disease. Reading Location: [facility] Chest X-Ray 02/02/25 20:20 IMPRESSION: Pulmonary findings as above. Reading Location: [facility] Foot X-Ray 02/02/25 20:20 IMPRESSION: No acute osseous abnormality. Reading Location: [facility] Assessment & Plan Assessment/Plan (1) Pneumonia: PLAN: [...] behavioral disturbance history who presents to the [facility] ED on 02/02/2025 with history of [...] 16 minutes. Charges/Coding Visit Charges Inpatient E&M: 36227 Init Hosp L3 Procedures Hospitalists Procedures: 15217 Advncd Care Plan 30 Min 02/03/25 0026 <Electronically signed by Karen Aly MD> Cosigner Signature (if applicable): CC: Dr. Karen Aly MD; Kuldip Cosby~ Signed [facility] Work Phone: 1([phone]) [phone] Evaluation note* Diagnosis Onset Date Resolution Status [...] foot ulcer acute February 02, 2025 11:12pm [facility] Work Phone: [phone]) 294-680407-23-2025 Evaluation note* Diagnosis Onset Date Resolution Status [...] h foot ulcer acute March 03 3:23pm [facility] Work Phone: [phone]) [phone] Evaluation note* Diagnosis Onset Date Resolution Status [...] 9:47am Sick sinus syndrome chronic 2024 9:47am [facility] [employer] Work Phone: 1([phone]) 118-203307-23-2025 Evaluation note* Diagnosis Onset Date Resolution Status [...] (hyperlipidemia) chronic Mar 9:47am HTN (hypertension) chronic Septem jorge luis 2024 9:47am Presence of cardiac pacemaker chroni c March 22, 2025 9:47am Sick sinus syndrome chronic Septe mb2024 9:47am Presence of cardiac pacemaker chroni c March 22, 2025 12:14pm Second degree AV block, Mobi tz type II chronic March 22, 2 025 12:14pm Sick sinus syndrome chronic Septe mb2024 12:14pm [facility] Work Phone: 1([phone] 260-854707-23-2025 Discharge summary Author Nicholas Galarza [facility] Note Date/Time February 02, 2025 10:4 5pm [facility] Medical Records Department [address] [place] [address] Emergency Department Summary 02/02/25 MR#: [id number] Acct: [id number] Name: RICHARD ROY Rep #:[id number] : 1945 79 From: Nicholas Lemons PCP: Kuldip Cosby DECORATING MACHINE TENDER-C Status:REG ER Location: ED HPI History of [...] bisacodyl 10 mg rectal suppository 10 mg TN DAILY PRN constipation 05/30/23 Unknown History loperamide [...] thoracic aortic aneurysm repair Social History housing: residential current occupational status: [...] [facility] No she was called because he [...] recent hospitalizations, reviewed medications. Reviewed x-ray from residential which reported no obvious focal infiltrate Factors [...] Dispo: Discharge This note was generated with Amimon dictation software. It may contain incorrectwords, spelling, [...] 86.2 H Lymph % (Auto) 3.6 L Letcher % (Auto) 8.7 Eos % (Auto) 0.6 [...] Clarity Clear Urine pH 5.0 Ur Specific [place] 1.015 Urine Protein 30 H Urine Glucose [...] 3. Chronic paranasal sinus disease. Reading Location: [facility] Chest X-Ray 02/02/25 20:20 IMPRESSION: Pulmonary findings as above. Reading Location: [facility] Foot X-Ray 02/02/25 20:20 IMPRESSION: No acute osseous abnormality. Reading Location: [facility] Discharge Plan Triage Chief Complaint: Fever ED [...] QHS Patient Comments: PRN PER LONG-TERM MAR. memantine 10 mg Tablet 10 mg PO BID Qty: 0 0RF acetaminophen 325 mg tablet 650 mg PO .q12hrs Patient Comments: PRN PER LONG-TERM MAR bisacodyl 10 mg suppository 10 mg TN DAILY PRN (Reason: constipation) loperamide [Anti-Diarrheal (loperamide)] [...] Luis Caldera MD [Non-Staff] - Print Language: Sammarinese What to do if you have Problems For any increased pain, shortness of breath, bleeding, nausea or vomiting, chestpain, or any unexpected problems, contact your Primary Care Provider. Call [facility] ([phone]) or report to the closest Emergency Room. Call 911 if necessary. 02/02/252244 <Electronically signed by Nicholas Galarza DO> Cosigner Signature (if applicable): CC: Kuldip Cosby ~ Signed [facility] Work Phone: 1(240) 511-518207-23-2025 Discharge summary Author Nicholas Galarza [facility] Note Date/Time February 02, 2025 10:4 5pm [facility] Medical Records Department [address] [place] [address] Emergency Department Summary 02/02/25 MR#: [id number] Acct: [id number] Name: RICHARD ROY Rep #:[id number] : [...] bisacodyl 10 mg rectal suppository 10 mg TN DAILY PRN constipation 05/30/23 Unknown History loperamide [...] thoracic aortic aneurysm repair Social History housing: residential current occupational status: [...] Air Room Air Oxygen Flow Rate (L/min) [facility] MDM MDM Narrative Medical decision making narrative: HISTORY OF PRESENT ILLNESS: Chief complaint: Cough, lethargy, altered mental status and fever 79-year-old male history of type 2 diabetes, hyperlipidemia, PE, A-fib on Eliquis, secondary heart block status post pacemaker presents with recent cough,lethargy and fever. Also noted altered mental status. History is provided by and son. notes [facility] No she was called because he has [...] recent hospitalizations, reviewed medications. Reviewed x-ray from residential which reported no obvious focal infiltrate Factors [...] Dispo: Discharge This note was generated with Dragon dictation software. It may contain incorrectwords, spelling, [...] 86.2 H Lymph % (Auto) 3.6 L Letcher % (Auto) 8.7 Eos % (Auto) 0.6 [...] Clarity Clear Urine pH 5.0 Ur Specific [place] 1.015 Urine Protein 30 H Urine Glucose [...] 3. Chronic paranasal sinus disease. Reading Location: [id number] Chest X-Ray 02/02/25 20:20 IMPRESSION: Pulmonary findings as above. Reading Location: [facility] Foot X-Ray 02/02/25 20:20 IMPRESSION: No acute osseous abnormality. Reading Location: [facility] Discharge Plan Triage Chief Complaint: Fever ED [...] QHS Patient Comments: PRN PER LONG-TERM MAR. memantine 10 mg Tablet 10 mg PO BID Qty: 0 0RF acetaminophen 325 mg tablet 650 mg PO .q12hrs Patient Comments: PRN PER LONG-TERM MAR bisacodyl 10 mg suppository 10 mg TN DAILY PRN (Reason: constipation) loperamide [Anti-Diarrheal (loperamide)] [...] Luis Caldera MD [Non-Staff] - Print Language: Sammarinese What to do if you have Problems For any increased pain, shortness of breath, bleeding, nausea or vomiting, chestpain, or any unexpected problems, contact your Primary Care Provider. Call [employer] [facility] ([phone]) or report to the closest Emergency Room. Call 911 if necessary. 02/02/252244 <Electronically signed by Nicholas Galarza DO> Cosigner Signature (if applicable): CC: Kuldip Cosby ~ Signed [facility] Work Phone: 1(529) 172-640707-23-2025 History and physical note Author Karen Aly [facility] Note Date/Time February 03, 2025 12:2 6am [facility] Medical Records Department [address] [place] [address] H&P Exam - Hospitalist 02/02/252240 MR#: [id number] Acct: [id number] Name: RICHARD ROY Rep #:[id number] : 1945 79 From: Karen Aly MD PCP: Kuldip Cosby Status:ADM IN Location: [place] [address] HPI - General General Date of Admission: [...] behavioral disturbance history who presents to the [facility] ED on 02/02/2025 with history of [...] to magnesium 4 g IV x 1. [facility] Medical History History of stress [...] mg tablet 40 mg PO QHS cholesterol 11/ 08/18 11/17/24 History tamsulosin 0.4 mg capsule 0.4 mg [...] bisacodyl 10 mg rectal suppository 10 mg TN DAILY PRN constipation 05/30/23 Unknown History loperamide [...] thoracic aortic aneurysm repair Social History housing: residential current occupational status: [...] 86.2 H, Lymph % (Auto) 3.6 L, Letcher % (Auto) 8.7, Eos % (Auto) 0.6, [...] Clarity Clear, Urine pH 5.0, Ur Specific [place] 1.015, Urine Protein 30 H, Urine Glucose [...] 3. Chronic paranasal sinus disease. Reading Location: [facility] Chest X-Ray 02/02/25 20:20 IMPRESSION: Pulmonary findings as above. Reading Location: [facility] Foot X-Ray 02/02/25 20:20 IMPRESSION: No acute osseous abnormality. Reading Location: [facility] Assessment & Plan Assessment/Plan (1) Pneumonia: PLAN: [...] behavioral disturbance history who presents to the [facility] ED on 02/02/2025 with history of [...] 16 minutes. Charges/Coding Visit Charges Inpatient E&M: 24066 Init Hosp L3 Procedures Hospitalists Procedures: 92346 Advncd Care Plan 30 Min 02/03/25 0026 <Electronically signed by Karen Aly MD> Cosigner Signature (if applicable): CC: Dr. Karen Aly MD; Kuldip Cosby~ Signed [facility] Work Phone: 1(870) 505-670207-23-2025 History and physical note [facility] Medical Records Department [address] [place] [address] H&P Exam - Hospitalist 02/02/25 2241 MR#: [id number] Acct: [id number] Name: RICHARD ROY Rep #:[id number] : 1945 79 From: Karen Aly MD PCP: Kuldip Cosby Status:ADM IN Location: [facility] [id number] HPI - General General Date of Admission: [...] behavioral disturbance history who presents to the [facility] ED on 02/02/2025 with history of [...] to magnesium 4 g IV x 1. [facility] Medical History History of stress [...] bisacodyl 10 mg rectal suppository 10 mg TN DAILY PRN constipation 05/30/23 Unknown History loperamide [...] thoracic aortic aneurysm repair Social History housing: residential current occupational status: [...] 86.2 H, Lymph % (Auto) 3.6 L, Letcher % (Auto) 8.7, Eos % (Auto) 0.6, [...] Clarity Clear, Urine pH 5.0, Ur Specific [place] 1.015, Urine Protein 30 H, Urine Glucose [...] 3. Chronic paranasal sinus disease. Reading Location: [facility] Chest X-Ray 02/02/25 20:20 IMPRESSION: Pulmonary findings as above. Reading Location: [facility] Foot X-Ray 02/02/25 20:20 IMPRESSION: No acute osseous abnormality. Reading Location: [facility] Assessment & Plan Assessment/Plan (1) Pneumonia: PLAN: [...] behavioral disturbance history who presents to the [facility] ED on 02/02/2025 with history of [...] 16 minutes. Charges/Coding Visit Charges Inpatient E&M: 62343 Init Hosp L3 Procedures Hospitalists Procedures: 69416 Advncd Care Plan 30 Min 02/03/25 0026 Cosigner Signature (if applicable): CC: Dr. Karen Aly MD; Kuldip Cosby~ Signed [facility]07-22-2025 Discharge summary [facility] Medical Records Department [address] [place] [address] Emergency Department Summary 02/02/25 MR#: [id number] Acct: [id number] Name: RICHARD ROY Rep #:[id number] : 1945 79 From: Nicholas Lemons PCP: Kuldip Cosby DECORATING MACHINE TENDER-C Status:REG ER Location: ED HPI History of [...] bisacodyl 10 mg rectal suppository 10 mg TN DAILY PRN constipation 05/30/23 Unknown History loperamide [...] thoracic aortic aneurysm repair Social History housing: residential current occupational status: [...] [facility] No she was called because he [...] recent hospitalizations, reviewed medications. Reviewed x-ray from residential which reported no obvious focal infiltrate Factors affecting care: n as per [facility] Social determinants of health: long-term resident History [...] Dispo: Discharge This note was generated with Amimon dictation software. It may contain incorrectwords, spelling, [...] 86.2 H Lymph % (Auto) 3.6 L Letcher % (Auto) 8.7 Eos % (Auto) 0.6 [...] Clarity Clear Urine pH 5.0 Ur Specific [place] 1.015 Urine Protein 30 H Urine Glucose [...] 3. Chronic paranasal sinus disease. Reading Location: [facility] Chest X-Ray 02/02/25 20:20 IMPRESSION: Pulmonary findings as above. Reading Location: [facility] Foot X-Ray 02/02/25 20:20 IMPRESSION: No acute osseous abnormality. Reading Location: [facility] Discharge Plan Triage Chief Complaint: Fever ED [...] QHS Patient Comments: PRN PER LONG-TERM MAR. memantine 10 mg Tablet 10 mg PO BID Qty: 0 0RF acetaminophen 325 mg tablet 650 mg PO .q12hrs Patient Comments: PRN PER LONG-TERM MAR bisacodyl 10 mg suppository 10 mg TN DAILY PRN (Reason: constipation) loperamide [Anti-Diarrheal (loperamide)] [...] Luis Caldera MD [Non-Staff] - Print Language: Sammarinese What to do if you have Problems For any increased pain, shortness of breath, bleeding, nausea or vomiting, chestpain, or any unexpected problems, contact your Primary Care Provider. Call [facility] ([phone]) or report tothe closest Emergency Room. Call 911 if necessary. 02/02/255 Cosigner Signature (if applicable): CC: Kuldip Cosby ~ Signed [facility]07-22-2025 Radiology Diagnostic study note [facility] Imaging Services [address] [place] [address] Foot 2 Views MR#: [id number] Acct: [id number] Name: RICHARD ROY Rep #: [id number] : 1945 M 79 From: Pascual Patino MD PCP: Kuldip Cosby Status: REG ER Study:Foot 2 Views Date of Exam: 5 Exam# [id number] Ordering Dr: Ronak Galarza DO PROCEDURE: FOOT 2 VIEWS 02/02/2025 REASON FOR EXAM: REDNESS, LATERAL 5TH DIGIT ULCER TECHNIQUE: FOOT 2 VIEWS COMPARISON: None. FINDINGS: No evidence of acute fracture or dislocation. The joint spaces are maintained. Heavy atherosclerosis. RAD/Foot 2 Views IMPRESSION: No acute osseous abnormality. Reading Location: [id number] CC: Dr. Nicholas Galarza DO; Kuldip Cosby ~ Vending Service Technician: Signed [facility]07-22-2025 Radiology Diagnostic study note [facility] Imaging Services [address] [place], [place] [id number] Chest 1 View (Portable) MR#: [id number] Acct: [id number] Name: RICHARD ROY Rep #: [id number] : 1945 M 79 From: Pascual Patino MD PCP: Kuldip Cosby Status: REG ER Study:Chest 1 View (Portable) Date of Exam: 02/02/25 Exam# [id number] Ordering Dr: Ronak Galarza DO PROCEDURE: CHEST 1 VIEW (PORTABLE) 02/02/2025 REASON FOR EXAM: ALTERED MENTAL STATUS TECHNIQUE: Frontal view of the chest. COMPARISON: 02/10/2023. FINDINGS: The heart is enlarged. Prior sternotomy. Left chest pacemaker. Left midlung consolidative opacity which may represent pneumonia (limited assessment due to rotation). RAD/Chest 1 View (Portable) IMPRESSION: Pulmonary findings as above. Reading Location: [id number] CC: Dr. Nicholas Galarza DO; Kuldip Cosby ~ Vending Service Technician: Signed [facility]07-22-2025 Radiology Diagnostic study note [facility] Imaging Services [address] [place], [place] [id number] Brain/Head without Contrast MR#: [id number] Acct: [id number] Name: RICHARD ROY Rep #: [id number] : 1945 M 79 From: Philip Johnson MD PCP: Kuldip Cosby Status: REG ER Study:Brain/Head without Contrast Date of Exa m: 02/02/25 Exam# [id number] Ordering Dr: Ronak Galarza DO PROCEDURE: BRAIN/HEAD [...] 3. Chronic paranasal sinus disease. Reading Location: [id number] CC: Dr. Nicholas Galarza DO; Kuldip Cosby ~ Vending Service Technician: Signed [facility]03-31-2025 Evaluation note* Diagnosis Onset Date Resolution Status Admit Date Presence of cardiac pacemaker acute October 12, 2024 1:09pm Atrial fibrillation chronic October 12, 2024 1:09pm Diabetes chronic October 12 1:09pm HLD (hyperlipidemia) chronic [place] [facility] 2024 1:09pm HTN (hypertension) chronic October 12, 2024 1:09pm Sick sinus syndrome chronic October 12, 2024 1:09pm [facility] Work Phone: 1(193) 957-620103-31-2025 Evaluation note* Diagnosis Onset Date Resolution Status Admit Date Presence of cardiac pacemaker acute October 12, 2024 1:09pm Atrial fibrillation chronic October 12, 2024 1:09pm Diabetes chronic October 12 1:09pm HLD (hyperlipidemia) chronic [place] [facility] 2024 1:09pm HTN (hypertension) chronic October 12, 2024 1:09pm Sick sinus syndrome chronic October 12, 2024 1:09pm Pneumonia acute February 02 11:12pm [facility] Work Phone: 1(644) 644-293811-20-2023 Procedure [facility] 02-13-2023 Consult note Author Haile Bautista [facility] February 13, 2023 2:50pm Note Date/Time February 13, 2023 2:5 0pm [facility] Medical Records Department [address] [place] [address] Counseling Note - Pharmacy 02/13/23 1449 MR#: [id number] Acct: [id number] Name: RICHARD ROY Rep #:[id number] : 1945 77 From: Haile Bautista PCP: Dr. Luis Caldera MD Status :ADM IN Y Location: [place] [address] Pharmacy PR Med Reconciliation Pharmacy Service has [...] 02/13/23 02/13/23 1450 <Electronically signed by Haile mcdowell> Date _ Haile Hsuigner Signature (if applicable): Date CC: ~ Signed [facility] Work Phone: 1(655) 511-136708-02-2023 Discharge summary Author [facility] February 13, 2023 2:24pm Note Date/Time February 13, 2023 2:1 5pm [facility] Medical Records Department [address] [place] [address] Transfer to [facility] MR#: [id number] Acct: [id number] Name: RICHARD ROY Rep #:[id number] : [...] SERVICES PRIOR TO HIS/HER TRANSFER TO [facility]. 02/13/23 1424<Electronically signed by Gabriel Tereletsky DO> Diet Diet Order/Speech Therapy: 02/12/23 14:46 [...] 100 unit/mL insulin pen See Protocol subcut [facility] Protocol: 6. Sliding Scale Insulin Custom Condition: mg/dl range Dose/Route: Number of Units Condition: 200-250 Dose/Route: 5 Condition: 251-300 Dose/Route: 8 Condition: 301-350 Dose/Route: 12 Condition: >351 Instruction: NOTIFY MD Protocol Text: Custom Sliding Scale Rx Instructions: 200-250 5 units; 251-300 8 units; 301-350 12 units; 351-[address] lynn-docusate sodium [Stool Softener-Stimulant Laxat] 8.6-50 mg Tablet [...] in before D/C Order can be placed): [facility] 02/13/23 1424 <Electronically signed by Gabriel Giraldo DO> Cosigner Signature (if applicable): CC: Dr. Luis Caldera MD; Dr. Smith Leija MD ~ [facility] Work Phone: 1([phone]) 701-918408-01-2023 Progress note Author Gabriel [facility] February 12, 2023 4:48pm Note Date/Time February 12, 2023 4:4 8pm [facility] Medical Records Department [address] [place] [address] Progress Note - Hospitalist 02/12/23 1639 MR#: [id number] Acct: [id number] Name: RICHARD ROY Rep #:[id number] : 1945 77 From: Gabriel Giraldo DO PCP: Dr. Luis Caldera MD Status :ADM IN [facility] Reason for Visit Reason for Visit: Diagnoses [...] 76.5 H, Lymph % (Auto) 8.1 L, Letcher % (Auto) 12.5 H, Eos % (Auto) [...] 35 minutes Charges/Coding Visit Charges Inpatient E&M: 08939 Subs Hosp L2 02/12/23 1648 <Electronically signed by Gabriel Giraldo DO> Cosigner Signature (if applicable): CC: ~ Signed [facility] Work Phone: 1(716) 771-262308-01-2023 Consult note Author Smith Leija [facility] February 12, 2023 2:16pm Note Date/Time February 12, 2023 2:1 6pm [facility] Medical Records Department [address] [facility] [place] [address] Consultation - Infectious Dx 02/12/23 1412 MR#: [id number] Acct: [id number] Name: RICHARD ROY Rep #:[id number] : 1945 77 From: Smith mcdowell MD PCP: Dr. Luis Caldera MD Status :ADM IN Location: [place] [address] Assessment & Plan Assessment/Plan (1) Bacteremia: PLAN: [...] keflex in ED 02/10, sent back to [facility]. Had low grade fever, returned here with (+) ucx and (+)bcx with GNR. Admitted on ceftriaxone, feeling ok today. No complaints, deniesfever, chest pain, abd pain, dysuria, n/v/d. Full ROS performed and neg except as noted above. [facility] Medical History AAA (abdominal aortic [...] Last Taken 02/10/23] warfarin 5 mg tablet (Jultoven) 7.5 mg [...] 76.5 H, Lymph % (Auto) 8.1 L, Letcher % (Auto) 12.5 H, Eos % (Auto) 0.8, Baso % (Auto) 0.1, Absolute Neuts(auto) 5.7, Absolute Lymphs (auto) 0.61 L, Nucleated RBC % 0, PT 19.3 H, INR 1.6 Rhythm Strip Rhythm Strip: paced Rate: 95 Ectopy: None 02/12/23 1416 <Electronically signed by Smith Leija MD> Cosigner Signature (if applicable): CC: Dr. Luis Caldera MD; Dr. Smith Leija MD~ Signed [facility] Work Phone: 1(663) 692-695908-01-2023 Discharge summary Author Dandy Sauer [facility] February 12, 2023 2:03am Note Date/Time February 11, 2023 5:05 pm [facility] Medical Records Department [address] [place] [address] Emergency Department Summary 02/11/23 MR#: [id number] Acct: [id number] Name: RICHARD ROY Rep #:[id number] : 1945 77 From: Dandy Sauer MD PCP: Dr. Luis Caldera MD Status :ADM IN Location: MS3 [id number] HPI History of Present Illness Chief Complaint: [...] mostly the lethargy is the issue acutely. [facility] Medical History (Updated 02/11/23 @ 19:31 [...] mg PO TID 02/11/23 [History Last Taken 07/31/23] Allergy/AdvReac Type Severity Reaction Status Date / [...] infection), Bacteremia Disposition Disposition: Acute Care Hospital [facility] Discharge Date/Time: 02/11/23 19:06 What to do if you have Problems For any increased pain, shortness of breath, bleeding, nausea or vomiting, chestpain, or any unexpected problems, contact your Primary Care Provider. Call [facility] ([phone]) or report to the closest Emergency Room. Call 911 if necessary. 02/12/23 0203 <Electronically signed by Dandy Sauer MD> Cosigner Signature (if applicable): CC: Dr. Luis Caldera MD ~ Signed [facility] Work Phone: [phone]) 960-563707-31-2023 History and physical note Author Jesus Burnham [facility] February 11, 2023 7:38pm Note Date/Time February 11, 2023 7:39 pm [facility] Medical Records Department [address] [place] [address] History & Physical Exam 02/11/231928 MR#: [id number] Acct: [id number] Name: RICHARD ROY Rep #:[id number] : 1945 77 From: Jesus Burnham MD PCP: Dr. Luis Caldera MD Status :ADM IN Location: [facility] [id number] HPI - General General Date of Admission: [...] the son is the DURABLE POWER OF GREY WASHER for healthcare and has orders signed for DNR CCA with no intubation. He will be admitted to the general medical floor placed on Rocephin, consult for infectiousdisease due to new implanted pacemaker. [facility] Medical History Amputation of [...] on Coumadin Charges/Coding Visit Charges Inpatient E&M: 80088 Init Hosp L2 02/11/231937 <Electronically signed by Jesus Burnham MD> Cosigner Signature (if applicable): CC: Dr. Luis Caldera MD; Dr. Jesus Burnham MD~ Signed [facility] Work Phone: [phone]) 771-443507-17-2023 Miscellaneous Notes* Telephone Encounter - Tania Heller LPN - 01/28/2023 2:22 PM EDT Miya with [facility] calls to report pt was admitted to their facility over the weekend. Miya is requesting immunization record be faxed to: [phone]. Immunization record faxed as requested. [facility]eller [facility] Discharge summary Author Ryan Tinoco [facility] January 26, 2023 12:56pm Note Date/Time January 26, 2023 12:4 6pm [facility] Medical Records Department [address] [place] [address] Discharge Summary 01/26/23 1157 MR#: [id number] Acct: [id number] Name: RICHARD ROY Rep #:[id number] : 1945 77 From: Ryan Delgado PCP: Dr. Luis Caldera MD Status :ADM IN Location: [place] [id number] Providers Date of Admission: 01/21/23 Date [...] is a 77-year-old gentleman being admitted from [facility] for multiple episodes of syncope and upper [...] the . His medical care is under [facility]. 01/22: Hemoglobin dropped to 8.9. Patient [...] there was 2 dropped heartbeat in EKG. cabbage salter shows heart rate slowed down to 48 to 60/min. EKG in the morning about 6 AM today shows sinus rhythm with second- degree Mobitz type II block, RBBB, LAFB bifascicular block. Patient has history of bifascicular block. I talked to the patient's and informed her about the update. Patient has history of ascending aortic aneurysmand had that repaired along with aortic valve in [facility]. His trial justice is Dr. Huston in [facility]. I think this is most probably due to start of the octreotide drip as patient was in sinus normal rhythm at time ofadmission. Octreotide discontinued. Cell Plasterer consulted. 2D echo ordered. 01/23: Echo states EF 55 to 60%, normal LV systolic function. Trivial MR. Mild diffuse aortic valve calcification. Normal left atrium. Plan: Cell Plasterer will talk to Dr. Chandra regarding assessment for pacemaker 01/24: Patient has hypernatremia and hyperchloremia. IV fluid D5W started. Patient is still has AV block, P waves but rhythm is irregular. Twelve-lead EKGordered. Discussed with the trial justice. Dr. Ling will talk to Dr. Chandra. 01/25: For now plan is to monitor. No plan for pacemaker as per the trial justice. cabbage salter shows irregular heartbeat , Mobitz type II. [...] or advanced directive. His is power of transactional attorney for health. After discussion of benefits/risks [...] Heart rate in 50s.. Discussed with the trial justice. No chest pain or tightness. Physical exam [...] 78.4 H, Lymph % (Auto) 8.1 L, Letcher % (Auto) 9.6, Eos % (Auto) 1.6, [...] 100 unit/mL insulin pen See Protocol subcut [facility] Protocol: 6. Sliding Scale Insulin Custom Condition: [...] in before D/C Order can be placed): [facility] Facility Charges/Coding Visit Charges Inpatient E&M: 85658 Disch Hosp >30min 01/26/23 1256 <Electronically signed by Ryan Tinoco MD> Cosigner Signature (if applicable): CC: Dr. Luis Caldera MD; Dr. Ryan Tinoco MD~ Signed [facility] Work Phone: 1([phone]) 857-769607-15-2023 Discharge summary Author Ryan Tinoco [facility] January 26, 2023 11:57am Note Date/Time January 26, 2023 7:59 am [facility] Medical Records Department [address] [place] [address] Transfer to [facility] Care MR#: [id number] Acct: [id number] Name: RICHARD ROY Rep #:[id number] : 1945 77 From: Ryan Deglado PCP: Dr. Luis Caldera MD Status :ADM [...] is a 77-year-old gentleman being admitted from [facility] for multiple episodes of syncope and upper [...] the . His medical care is under [facility]. 01/22: Hemoglobin dropped to 8.9. Patient [...] there was 2 dropped heartbeat in EKG. cabbage salter shows heart rate slowed down to 48 to 60/min. EKG in the morning about 6 AM today shows sinus rhythm with second- degree Mobitz type II block, RBBB, LAFB bifascicular block. Patient has history of bifascicular block. I talked to the patient's and informed her about the update. Patient has history of ascending aortic aneurysmand had that repaired along with aortic valve in [facility]. His trial justice is Dr. Huston in [facility]. I think this is most probably due to start of the octreotide drip as patient was in sinus normal rhythm at time ofadmission. Octreotide discontinued. Cell Plasterer consulted. 2D echo ordered. 01/23: Echo states EF 55 to 60%, normal LV systolic function. Trivial MR. Mild diffuse aortic valve calcification. Normal left atrium. Plan: Cell Plasterer will talk to Dr. Chandra regarding assessment for pacemaker 01/24: Patient has hypernatremia and hyperchloremia. IV fluid D5W started. Patient is still has AV block, P waves but rhythm is irregular. Twelve-lead EKGordered. Discussed with the trial justice. Dr. Ling will talk to Dr. Chandra. 01/25: For now plan is to monitor. No plan for pacemaker as per the trial justice. cabbage salter shows irregular heartbeat , Mobitz type II. [...] or advanced directive. His is power of transactional attorney for health. After discussion of benefits/risks [...] nightly thereafter Referrals / Follow Up: Luis Cladera MD [Primary Care Provider] - Júnior Chandra MD [Med Staff - Active Staff] - Within 2 Weeks Liu Hackett DO [Med Staff - Active Staff] - Within 1 Month Disposition Disposition (needs filled in before D/C Order can be placed): [facility] Facility (6) Anemia Qualifiers: Anemia type: iron deficiency Iron deficiency anemia type: other iron deficiency Qualified Code(s): D50.8 - Other iron deficiency anemias 01/26/23 1157 <Electronically signed by Ryan Tinoco MD> Cosigner Signature (if applicable): CC: Dr. Luis Caldera MD; Dr. Lizzeth Riggs MD ~ [facility] Work Phone: 1(115) 123-471707-14-2023 Progress note Author Lizzeth Riggs [facility] January 25, 2023 4:08pm Note Date/Time January 25, 2023 1:09 pm [facility] Medical Records Department [address] [place] [address] Progress Note - Cardiology 01/25/23 1308 MR#: [id number] Acct: [id number] Name: RICHARD ROY Rep #:[id number] : 1945 77 From: Rebecca LOZA PCP: Dr. Luis Caldera MD Status :ADM IN Location: [place] [address] Documented by User: DENIA Wilkinson 01/25/23 14:14 [...] Albumin (DAVID) 2.5 L, Albumin/Globulin (DAVID) 1.4, Sktjf-3-Ubgdypyhf DAVID 0.2, Iitxw-6-Fvurgxofk DAVID 0.6, Beta-Globulins (DAVID) 0.7, Gamma Globulins [...] 83.4 H, Lymph % (Auto) 5.9 L, [place]cher % (Auto) 7.8, Eos % (Auto) 1.0, [...] 83.4 H, Lymph % (Auto) 5.9 L, [place] % (Auto) 7.8, Eos % (Auto) 1.0, [...] stable hemodynamically. Charges/Coding Visit Charges Inpatient E&M: 55390 Subs Hosp L2 Documented by User: Dr. [...] notes and documentation Patient to follow-up as trial justice Dr. Chandra with the results of the event monitor. To evaluate for permanent pacemaker implant. 01/25/23 1414 <Electronically signed by Rebecca LOZA> Cosigner Signature (if applicable): 01/25/23 1608 <Electronically signed by Lizzeth Riggs MD> CC: ~ Signed [facility] Work Phone: 1(340) 644-743507-14-2023 Progress note Author Ryan Tinoco [facility] January 25, 2023 2:08pm Note Date/Time January 25, 2023 9:30 am [facility] Medical Records Department [address] [place] [address] Progress Note - Hospitalist 01/25/2328 MR#: [id number] Acct: [id number] Name: RICHARD ROY Rep #:[id number] : 1945 77 From: Ryan Delgado PCP: Dr. Luis Caldera MD Status :ADM IN Location: [place] [address] Reason for Visit Reason for Visit: Diagnoses [...] 83.4 H, Lymph % (Auto) 5.9 L, Letcher % (Auto) 7.8, Eos % (Auto) 1.0, [...] Heart rate in 50s.. Discussed with the trial justice. No chest pain or tightness. Physical exam [...] is a 77-year-old gentleman being admitted from [facility] for multiple episodes of syncope and upper [...] the . His medical care is under [facility]. 01/22: Hemoglobin dropped to 8.9. Patient [...] Albumin (DAVID) 2.5 L, Albumin/Globulin (DAVID) 1.4, Rosjk-8-Weiwpozlu DAVID 0.2, Otbty-3-Ompyifxhv DAVID 0.6, Beta-Globulins (DAVID) 0.7, Gamma Globulins [...] 83.4 H, Lymph % (Auto) 5.9 L, [place]cher % (Auto) 7.8, Eos % (Auto) 1.0, [...] there was 2 dropped heartbeat in EKG. cabbage salter shows heart rate slowed down to 48 to 60/min. EKG in the morning about 6 AM today shows sinus rhythm with second- degree Mobitz type II block, RBBB, LAFB bifascicular block. Patient has history of bifascicular block. I talked to the patient's and informed her about the update. Patient has history of ascending aortic aneurysmand had that repaired along with aortic valve in [facility]. His trial justice is Dr. Huston in [facility]. I think this is most probably due to start of the octreotide drip as patient was in sinus normal rhythm at time ofadmission. Octreotide discontinued. Cell Plasterer consulted. 2D echo ordered. 01/23: Echo states EF 55 to 60%, normal LV systolic function. Trivial MR. Mild diffuse aortic valve calcification. Normal left atrium. Plan: Cell Plasterer will talk to Dr. Chandra regarding assessment for pacemaker 01/24: Patient has hypernatremia and hyperchloremia. IV fluid D5W started. Patient is still has AV block, P waves but rhythm is irregular. Twelve-lead EKGordered. Discussed with the trial justice. Dr. Ling will talk to Dr. Chandra. 01/25: For now plan is to monitor. No plan for pacemaker as per the trial justice. cabbage salter shows irregular heartbeat , Mobitz type II. [...] or advanced directive. His is power of transactional attorney for health. After discussion of benefits/risks [...] systolic function Charges/Coding Visit Charges Inpatient E&M: 06637 Subs Hosp L2 01/25/23 1408 <Electronically signed by Ryan Tinoco MD> Cosigner Signature (if applicable): CC: ~ Signed [facility] Work Phone: 1(313) 138-632907-13-2023 Progress note Author Karen Aly [facility] January 24, 2023 8:23pm Note Date/Time January 24, 2023 8:23 pm [facility] Medical Records Department [address] [facility] [place] [address] Progress Note - Hospitalist 01/24/232021 MR#: [id number] Acct: [id number] Name: RICHARD ROY Rep #:[id number] : 1945 77 From: Karen Aly MD PCP: Dr. Luis Caldera MD Status :ADM IN Location: [place] [address] Hospitalist Note Recurrent type II AV block which from notes has been intermittent. He is asymptomatic. Cardiology following and made aware also by RN that it is recurrent. 01/24/232022 <Electronically signed by Karen Aly MD> Cosigner Signature (if applicable): CC: ~ Signed [facility] Work Phone: 1([phone]) 480-622707-13-2023 Progress note Author Liu Friend [facility] January 24, 2023 5:07pm Note Date/Time January 24, 2023 5:07 pm [facility] Medical Records Department [address] [place] [address] Progress Note - GI 01/24/231702 MR#: [id number] Acct: [id number] Name: RICHARD ROY Rep #:[id number] : 1945 77 From: Liu Friend DO PCP: Dr. Luis Caldera MD Status :ADM IN Location: [place] [address] Subjective Subjective Patient laying in bed with [...] 82.8 H, Lymph % (Auto) 5.3 L, Letcher % (Auto) 8.9, Eos % (Auto) 1.3, [...] ensure healing. Charges/Coding Visit Charges Inpatient E&M: 48268 Subs Hosp L3 01/24/237 <Electronically signed by Liu Hackett DO> Cosigner Signature (if applicable): CC: ~ Signed [facility] Work Phone: 1(508) 534-454107-13-2023 Progress note Author Lizzeth Riggs [facility] January 24, 2023 4:25pm Note Date/Time January 24, 2023 1:41 pm [facility] Medical Records Department [address] [place] [address] Progress Note - Cardiology 01/24/23 1338 MR#: [id number] Acct: [id number] Name: RICHARD ROY Rep #:[id number] : 1945 77 From: Rebecca LOZA PCP: Dr. Luis Caldera MD Status :ADM IN Location: [facility] [id number]- 1 Documented by User: DENIA Wilkinson 01/24/23 [...] 82.8 H, Lymph % (Auto) 5.3 L, Letcher % (Auto) 8.9, Eos % (Auto) 1.3, [...] 82.8 H, Lymph % (Auto) 5.3 L, Letcher % (Auto) 8.9, Eos % (Auto) 1.3, [...] by GI. Charges/Coding Visit Charges Inpatient E&M: 76743 Subs Hosp L2 Documented by User: Dr. [...] by Lizzeth Riggs MD> CC: ~ Signed [facility] Work Phone: 1(722) 152-580707-13-2023 Miscellaneous Notes* Telephone Encounter - Tamika Grijalva [...] Health for rehabilitation after his hospitalization @ [facility] for confusion on 01/04. He was sent by squad to [facility] from [facility] on 01/21 due to episode [...] post hospital stay but it won't be [facility]. Vannessa Jorge, JACEY documented in this encounterDayton Va Medical Center07-13-2023 Progress note Author Ryan Tinoco [facility] January 24, 2023 1:11pm Note Date/Time January 24, 2023 8:05 am [facility] Medical Records Department [address] [place] [address] Progress Note - Hospitalist 01/24/23 0758 MR#: [id number] Acct: [id number] Name: RICHARD ROY Rep #:[id number] : [...] Antibody < 0.2, Sm (Martinez) Antibody <0.2, CRYSTAL SLICER Antibody <0.2, Scl-70 Scleroderma Ab <0.2, Double [...] 82.8 H, Lymph % (Auto) 5.3 L, Letcher % (Auto) 8.9, Eos % (Auto) 1.3, [...] waves. Twelve-lead EKG ordered.. Discussed with the trial justice. No chest pain or tightness. General: Awake [...] is a 77-year-old gentleman being admitted from [facility] for multiple episodes of syncope and upper [...] the . His medical care is under [facility]. 01/22: Hemoglobin dropped to 8.9. Patient [...] there was 2 dropped heartbeat in EKG. cabbage salter shows heart rate slowed down to 48 to 60/min. EKG in the morning about 6 AM today shows sinus rhythm with second- degree Mobitz type II block, RBBB, LAFB bifascicular block. Patient has history of bifascicular block. I talked to the patient's and informed her about the update. Patient has history of ascending aortic aneurysmand had that repaired along with aortic valve in [facility]. His trial justice is Dr. Huston in [facility]. I think this is most probably due to start of the octreotide drip as patient was in sinus normal rhythm at time ofadmission. Octreotide discontinued. Cell Plasterer consulted. 2D echo ordered. 01/23: Echo states EF 55 to 60%, normal LV systolic function. Trivial MR. Mild diffuse aortic valve calcification. Normal left atrium. Plan: Cell Plasterer will talk to Dr. Chandra regarding assessment for pacemaker 01/24: Patient has hypernatremia and hyperchloremia. IV fluid D5W started. Patient is still has AV block, P waves but rhythm is irregular. Twelve-lead EKGordered. Discussed with the trial justice. Dr. Ling will talk to Dr. Chandra. [...] or advanced directive. His is power of transactional attorney for health. After discussion of benefits/risks [...] systolic function Charges/Coding Visit Charges Inpatient E&M: 11401 Subs Hosp L3 01/24/23 1311 <Electronically signed by Ryan Tinoco MD> Cosigner Signature (if applicable): CC: ~ Signed [facility] Work Phone: 1(980) 988-239107-12-2023 Progress note Author [facility] Rig[facility] January 23, 2023 2:45pm Note Date/Time January 23, 2023 10:0 0am [facility] Medical Records Department [address] [facility] [place] [address] Progress Note - Cardiology 01/23/2346 MR#: [id number] Acct: [id number] Name: RICHARD ROY Rep #:[id number] : [...] 85.3 H, Lymph % (Auto) 4.8 L, Letcher % (Auto) 7.1, Eos % (Auto) 0.7, [...] 85.3 H, Lymph % (Auto) 4.8 L, Letcher % (Auto) 7.1, Eos % (Auto) 0.7, [...] appears stable. Charges/Coding Visit Charges Inpatient E&M: 89934 Subs Hosp L2 01/23/23 1000 <Electronically signed by Rebecca LOZA> Cosigner Signature (if applicable): 01/23/23 1445 <Electronically signed by Lizzeth Riggs MD> CC: ~ Signed [facility] Work Phone: 1(367) 215-621607-12-2023 Procedure [facility] 01-23-2023 Procedure [facility]07-12-2023 Progress note Author Ryan Tinoco [facility] January 23, 2023 9:01am Note Date/Time January 23, 2023 9:01 am [facility] Medical Records Department [address] [place] [address] Progress Note - Hospitalist 01/23/23 0852 MR#: [id number] Acct: [id number] Name: RICHARD ROY Rep #:[id number] : [...] 85.3 H, Lymph % (Auto) 4.8 L, Letcher % (Auto) 7.1, Eos % (Auto) 0.7, [...] every third beat dropped. Discussed with the trial justice. No chest pain or tightness. General: Oriented [...] is a 77-year-old gentleman being admitted from [facility] for multiple episodes of syncope and upper [...] the . His medical care is under [facility]. 01/22: Hemoglobin dropped to 8.9. Patient [...] there was 2 dropped heartbeat in EKG. cabbage salter shows heart rate slowed down to 48 to 60/min. EKG in the morning about 6 AM today shows sinus rhythm with second- degree Mobitz type II block, RBBB, LAFB bifascicular block. Patient has history of bifascicular block. I talked to the patient's and informed her about the update. Patient has history of ascending aortic aneurysmand had that repaired along with aortic valve in [facility]. His trial justice is Dr. Huston in [facility]. I think this is most probably due to start of the octreotide drip as patient was in sinus normal rhythm at time ofadmission. Octreotide discontinued. Cell Plasterer consulted. 2D echo ordered. 01/23: Echo states EF 55 to 60%, normal LV systolic function. Trivial MR. Mild diffuse aortic valve calcification. Normal left atrium. Plan: Cell Plasterer will talk to Dr. Chandra regarding assessment [...] or advanced directive. His is power of transactional attorney for health. After discussion of benefits/risks [...] Signed: Ravindra Sierra MD at 10:43 EDT Reading Location ID and State: [facility] / OR , Service support , Chest X-Ray 01/21/23 09:30 IMPRESSION: No [...] organ systems), coordination with cardiology and GI alliances consultant, review of labs and imaging is 50 minutes. Visit Charges Inpatient E&M: 46309 Subs Hosp 01/23/23 0901 <Electronically signed by Ryan Tinoco MD> Cosigner Signature (if applicable): CC: ~ Signed [facility] Work Phone: [phone]) 734-752507-11-2023 Consult note Author Rebecca Leon [facility] January 22, 2023 4:28pm Note Date/Time January 22, 2023 4:07 pm [facility] Medical Records Department [address] [place] [address] Consultation - Cardiology 01/22/23 1605 MR#: [id number] Acct: [id number] Name: RICHARD ROY Rep #:[id number] : [...] hospital stay he was discharged to a detention facility for rehab. He presented back to the emergency room yesterday for syncope. The nurses at [facility] had noted that he was [...] were adjusted at his last hospital stay. [facility] Medical History (Updated 01/22/23 @ [...] Charges/Coding Visit Charges Office Visits / Consults: 22128 IP Consult L3 Objective Data Vital Signs: [...] RDW Coeff of Nathaniel 15.5 H, Plt [id number], MPV 10.1, Immature Gran % (Auto) 3.300 H, Neut % (Auto) 81.9 H, Lymph % (Auto) 5.9 L, Letcher % (Auto) 8.0, Eos % (Auto) 0.7, [...] 81.9 H, Lymph % (Auto) 5.9 L, Letcher % (Auto) 8.0, Eos % (Auto) 0.7,Baso [...] Caldera MD; Dr. Lizzeth Riggs MD~ Signed [facility] Work Phone: 1(995) 854-635307-11-2023 Progress note Author Ryan Tinoco [facility] January 22, 2023 8:38am Note Date/Time January 22, 2023 8:22 am [facility] Medical Records Department [address] [place] [address] Progress Note - Hospitalist 01/22/23818 MR#: [id number] Acct: [id number] Name: RICHARD ROY Rep #:[id number] : [...] 87.8 H, Lymph % (Auto) 7.5 L, Letcher % (Auto) 2.4, Eos % (Auto) 0.0, [...] Clarity Clear, Urine pH 5.0, Ur Specific [place] 1.020, Urine Protein 15 H, Urine Glucose [...] RDW Coeff of Nathaniel 15.5 H, Plt [id number], MPV 10.1, Immature Gran % (Auto) 3.300 H, Neut % (Auto) 81.9 H, Lymph % (Auto) 5.9 L, Letcher % (Auto) 8.0, Eos % (Auto) 0.7, [...] havingirregular heartbeat after midnight, initially A-fib on farmworker bulbs. After that about 5 AM patient started [...] is a 77-year-old gentleman being admitted from [facility] for multiple episodes of syncope and upper [...] the . His medical care is under [facility]. 01/22: Hemoglobin dropped to 8.9. Patient [...] there was 2 dropped heartbeat in EKG. cabbage salter shows heart rate slowed down to 48 to 60/min. EKG in the morning about 6 AM today shows sinus rhythm with second- degree Mobitz type II block, RBBB, LAFB bifascicular block. Patient has history of bifascicular block. I talked to the patient's and informed her about the update. Patient has history of ascending aortic aneurysmand had that repaired along with aortic valve in [facility]. His trial justice is Dr. Huston in [facility]. I think this is most probably due to start of the octreotide drip as patient was in sinus normal rhythm at time ofadmission. Octreotide discontinued. Cell Plasterer consulted. 2D echo ordered. 3. Essential hypertension [...] or advanced directive. His is power of transactional attorney for health. After discussion of benefits/risks procedures involved with full code, DNR CC arrest and DNR CC, the patient and his opted for full code. Patient does want artificial life support including intubation, tube feed, ventilator and/chest compression, central venous catheter, vasopressor and DC shock if needed Charges/Coding Visit Charges Inpatient E&M: 73589 Subs Hosp L3 01/22/23 0838 <Electronically signed by Ryan Tinoco MD> Cosigner Signature (if applicable): CC: ~ Signed [facility] Work Phone: 1(655) 843-309307-10-2023 Consult note Author Liu Hackett [facility] January 21, 2023 7:07pm Note Date/Time January 21, 2023 7:04 pm [facility] Medical Records Department [address] [place] [address] Consultation - GI 01/21/23 1902 MR#: [id number] Acct: [id number] Name: RICHARD ROY Rep #:[id number] : [...] D[facility]. [facility] [...] down to 10.9 from 13.1 on discharge. [facility] Medical History Amputation of [...] 87.8 H, Lymph % (Auto) 7.5 L, Letcher % (Auto) 2.4, Eos % (Auto) 0.0, [...] Clarity Clear, Urine pH 5.0, Ur Specific [place] 1.020, Urine Protein 15 H, Urine Glucose [...] 6 hours. Charges/Coding Visit Charges Inpatient E&M: 33238 Init Hosp L3 01/21/231906 <Electronically signed by Liu Friend DO> Cosigner Signature (if applicable): CC: Dr. Luis Caldera MD~ Signed [facility] Work Phone: 1(384) 878-157507-10-2023 Discharge summary Author Dandy Sauer [facility] January 21, 2023 5:25pm Note Date/Time January 21, 2023 9:06 am [facility] Medical Records Department [address] [place] [address] Emergency Department Summary 01/21/23 MR#: [id number] Acct: [id number] Name: RICHARD ROY Rep #:[id number] : 1945 77 From: Dandy Sauer MD PCP: Dr. Luis Caldera MD Status :ADM IN Location: ICU CVICU20 2-1 HPI History of Present Illness Chief Complaint: Syncope Informant: spouse/S.O., EMS and SNF Narrative Narrative: Patient sent from [facility] where he has been for several weeks [...] pain, but he denies it right now. [facility] Medical History Amputation of right great [...] place including the state. Downgoing toes bilaterally [place] Coma Scale: document GCS findings To Voice [...] 87.8 H Lymph % (Auto) 7.5 L Letcher % (Auto) 2.4 Eos % (Auto) 0.0 [...] Management Discussion w/another healthcare provider: Hospitalist and Waste Machine Offbearer (GI) Critical Care Time Critical Care Time: Yes Critical care time (excluding procedures): 30-74 minutes (33 min), Including time spent:, Discussing w/Patient &/or Family/Senior Clinical Consultant, Discussing w/Consultants, Arranging Admission or Transfer and Performing Direct Patient Care at Bedside Discharge Plan Dx/Rx/DC Orders Clinical Impression: Acute encephalopathy, Syncope, Supratherapeutic INR, ABLA (acute blood loss anemia), Upper gastrointestinal bleeding, Warfarin-induced coagulopathy Disposition Disposition: [facility] Capacity Capacity Assessment Tool Can the patient [...] your Primary Care Provider. Call [facility] ([phone]) or report to the closest Emergency Room. Call 911 if necessary. 01/21/23 1725 <Electronically signed by Dandy Sauer MD> Cosigner Signature (if applicable): CC: Dr. Luis Caldera MD ~ Signed [facility] Work Phone: 1(861) 668-343907-10-2023 History and physical note Author Ryan Tinoco [facility] January 21, 2023 12:24pm Note Date/Time January 21, 2023 11:5 8am [facility] Medical Records Department [address] [place] [address] H&P Exam - Hospitalist 01/21/23 1156 MR#: [id number] Acct: [id number] Name: RICHARD ROY Rep #:[id number] : 1945 77 From: Ryan Delgado PCP: Dr. Luis Caldera MD Status :ADM IN Location: ICU CVICU20 2-1 HPI - General General Date of Admission: 01/21/23 Date of Service: 01/21/23 Chief Complaint: Patient was unresponsive in the morning. Had large black tarrystool. HPI Narrative RICHARD ROY, is a 77 M gentleman was brought from [facility] to residential for syncopal episodes and black [...] further admitted in in the context of [facility] Medical History Amputation of [...] 87.8 H, Lymph % (Auto) 7.5 L, Letcher % (Auto) 2.4, Eos % (Auto) 0.0, [...] Clarity Clear, Urine pH 5.0, Ur Specific [place] 1.020, Urine Protein 15 H, Urine Glucose [...] is a 77-year-old gentleman being admitted from [facility] for multiple episodes of syncope and upper [...] the . His medical care is under [facility]. 2 Syncopal episode most likely due [...] or advanced directive. His is power of transactional attorney for health. After discussion of benefits/risks procedures involved with full code, DNR CC arrest and DNR CC, the patient and his opted for full code. Patient does want artificial life support including intubation, tube feed, ventilator and/chest compression, central venous catheter, vasopressor and DC shock if needed Total time spent in [id number] encounter in discussion of advanced directive 17 [...] 87.8 H, Lymph % (Auto) 7.5 L, Letcher % (Auto) 2.4, Eos % (Auto) 0.0, [...] Clarity Clear, Urine pH 5.0, Ur Specific [place] 1.020, Urine Protein 15 H, Urine Glucose (UA) 100 H, Urine Ketones 15 H, Urine Occult Blood Negative, Urine Nitrite Negative, Urine Bilirubin 1 H, Urine Urobilinogen Normal, Ur Leukocyte Esterase Negative, Urine RBC 0 SEEN, Urine WBC 0-5 SEEN, Ur Squamous Epith Cells 0-5 SEEN, Urine Bacteria 0 SEEN, Urine Mucus 0 SEEN Charges/Coding Visit Charges Inpatient E&M: 50930 Init Hosp L3 Procedures Hospitalists Procedures: 15161 Advncd Care Plan 30 Min 01/21/231222 <Electronically signed by Ryan Tinoco MD> Cosigner [...] MD; Dr. Ryan Tinoco MD ~* Signed [facility] Work Phone: [phone]) 554-181406-23-2023 Miscellaneous Notes* Telephone Encounter - Amada Cohn [...] again recommend ER evaluation. documented in this encounterDayton Va Medical Center06-23-2023 Miscellaneous Notes* Telephone Encounter - [...] 01/04. Vannessa Jorge RN documented in this encounterDayton Va Medical Center06-22-2023 History of Present illness Narrative* [...] PARTIALLY MET, improved 8 to 9 reps Mcculloch in home exercise program including cardiovascular exercise. [...] with an (*). Patient education as noted. Self-Intermediate Management: 1: *strongly enouraged f/u with physician [...] 5 Justina Escoto PT documented in this encounterDayton Va Medical Center06-19-2023 History of Present illness Narrative* [...] 42 ALISIA Burch PT documented in this encounterDayton Va Medical Center06-15-2023 History of Present illness Narrative* Justina Escoto PT - 12/27/2022 11:02 AM EDT Episode Visit Count: 8 Therapist That Will Accept/Oversee The Plan Of Care: Justina Esocto Start of Care Date: 11/29/22 Onset Date: [...] 40 ALISIA Burch PT documented in this encounterDayton Va Medical Center06-12-2023 History of Present illness Narrative* Justina Escoto [...] was facilitated with verbal and visual cueing. Self-Intermediate Management: 1: *strongly encouraged pt. to be [...] 40 Justina Escoto PT documented in this encounterDayton Va Medical Center06-05-2023 History of Present illness Narrative* [...] of gait belt. Patient education as noted. Self-Intermediate Management: 1: *discussed automatic lights 2: *discussed [...] 40 Justina Escoto PT documented in this encounterDayton Va Medical Center06-02-2023 History of Present illness Narrative* [...] early due to pt. early arrival. Pt. rolando. Pain: Pain Pain Level: 0 Pain Location: [...] 40 Justina Escoto PT documented in this encounterDayton Va Medical Center05-31-2023 History of Present illness Narrative* [...] 40 Justina Escoto PT documented in this encounterDayton Va Medical Center05-09-2023 Miscellaneous Notes* Telephone Encounter - [...] to the pharmacy. Please call patient at: [phone]. Nola Lockhart documented in this encounterDayton Va Medical Center05-08-2023 Miscellaneous Notes* Telephone Encounter - [...] and result): 09/24/2022 2.5 documented in this encounterDayton Va Medical Center04-10-2023 History of Present illness Narrative* [...] Patient, Diabetic Foot Care documented in this encounterDayton Va Medical Center04-10-2023 Instructions* Patient Instructions* Zachary Obregon [...] (or decreased sensation in your feet) a tissue inserter should always cut your toenails. Be Careful [...] Go to your health care provider or tissue inserter to treat these conditions. documented in this encounterDayton Va Medical Center03-14-2023 Miscellaneous Notes* Telephone Encounter - Rbeecca Esteban LPN - 09/25/2022 11:02 AM EDT [...] Information or narrative: no documented in this encounterDayton Va Medical Center02-24-2023 Miscellaneous Notes* Telephone Encounter - Suzanne Connelly RN - 09/07/2022 1:11 PM EST Call to patient. Provided number to schedule- [phone]. Offered to transfer patient to schedulebut patient declined to schedule stating he could call later. PAOLA Potter, RN September 07, 2022 1:11 PM * Telephone Encounter - Jojo Kaur MD - 09/07/2022 11:39 AM EST Suzanne please let patient know how to proceed with driving evaluation I already put the order in computer documented in this encounterDayton Va Medical Center02-24-2023 History of Present illness Narrative* [...] evaluation of folllow up after hospitalization in [facility]. he was admitted because of [...] others Since covid hit they [facility] and was staying in the house [...] Benign-Dr. 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 ([facility]) 05/25/2018 History of transfusion Hyperlipidemia LDL goal < 100 04/01/2012 NSTEMI (non-ST elevated myocardial infarction) ([facility]) Pulmonary embolus, right ([facility]) 09/25/2013 Status post aortic valve repair 2005 Thoracic aneurysm without mention of rupture Type 2 diabetes mellitus with stage 3 chronic kidney disease, with long-term current use of insulin([facility]) 06/20/2016 Vitamin D deficiency 01/03/2022 PSH: PAST SURGICAL HISTORY Procedure Laterality Date ABDOMINAL SURGERY HX AMPUTATION METATARSAL+TOE,SINGLE Right 05/25/2018 with delayed closure on 05/28/18. Dr. Obregon at [facility] COLONOSCOPY 10/10/2021 repeat in 3 years [...] one time a week. blood sugar diagnostic (orangutrans ULTRA TEST) test strip Test blood sugar(s) [...] gait ,unsteady Cannot tandem Jojo Kaur M.D. [facility] [place] Department of Neurology Total time in minutes [...] lights on at night. documented in this encounterDayton Va Medical Center02-14-2023 Miscellaneous Notes* Telephone Encounter - [...] no Tania Heller LPN documented in this encounterDayton Va Medical Center02-02-2023 Miscellaneous Notes* Telephone Encounter - [...] notify patient. Grecia Bustillo documented in this encounterDayton Va Medical Center01-31-2023 Miscellaneous Notes* Telephone Encounter - [...] Information or narrative: no documented in this encounterDayton Va Medical Center01-26-2023 History of Present illness Narrative* [...] 12 months ago. Going to schedule appointment [facility]. 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 Asymtpomatic still on medical management. Has completed his home PT/OT. Echo and stress test at [facility] were negative/normal. Has follow up with Dr. Huston on 12/03. questioning if they should be seen sooner. BP well controlled with current regimen <130/80. BPH: With use of flomax, patient is getting up once at night to urinate. Has weak stream, but denies straining, incomplete emptying, dysuria, hematuria, incontinence. Followed up with ENT in [place] for chronic frontal sinusitis on CT/MRI going back to February. Told this did not require treatment. F/u PRN. Denies sinus pressure/pain/congestion. Past medical history, appointments, medications, allergies reviewed. Previous Medical History PAST MEDICAL HISTORY Diagnosis Date BPH (benign prostatic hyperplasia) Cholelithiasis 09/25/2013 Chronic neutrophilia Benign-Dr. Cazares Diabetes mellitus with neurological manifestation ([facility]) 09/08/2010 Diabetic retinopathy of right eye ([facility]) mild Diverticulosis of colon (without mention of [...] kidney disease, with long-term current use of insulin([facility]) 06/20/2016 Vitamin D deficiency 01/03/2022 Previous Surgical History PAST SURGICAL HISTORY Procedure Laterality Date ABDOMINAL SURGERY HX AMPUTATION METATARSAL+TOE,SINGLE Right 05/25/2018 with delayed closure on 05/28/18. Dr. Obregon at [facility] COLONOSCOPY 10/10/2021 repeat in 3 years [...] Abs Lymph 1.00 - 4.00 k/uL 1.81 Letcher% % 6.9 Abs Letcher <0.87 k/uL 0.86 Eosin% % 3.1 Abs [...] neuropathy, with long-term current use of insulin ([facility]) -ICD9: 250.60, 357.2, V58.67, ICD10: E11.40, Z79.4 (primary diagnosis) improved control - Continue current medications - Blood glucose monitoring on a four times a day schedule - Encouraged regular aerobic exercise and weight loss - Follow up in 6 months, sooner should any other issues arise. - Discussed diabetic education issues of grocery associate diabetic complications, hypoglycemic symptoms, hyperglycemic symptoms, diet, [...] regimen. 3. NSTEMI (non-ST elevated myocardial infarction) ([facility]) - ICD9: 410.70, ICD10: I21.4 Patient asymptomatic [...] reigmen. Abdulaziz Caldera MD documented in this encounterDayton Va Medical Center01-23-2023 Miscellaneous Notes* Telephone Encounter - [...] pt. Mila Castro LPN documented in this encounterDayton Va Medical Center01-23-2023 History of Present illness Narrative* [...] or electronic medical record. documented in this encounterDayton Va Medical Center01-17-2023 Miscellaneous Notes* Telephone Encounter - [...] 2022. Rebecca Esteban LPN documented in this encounterDayton Va Medical Center01-13-2023 Miscellaneous Notes* Telephone Encounter - Meghana Burgess - 07/27/2022 9:55 AM EST MyChart message not read as of 07/27/2022. Called and spoke with patient. Appt rescheduled to 09/07/2022 at 11:00 AM Meghana Burgess * Telephone Encounter - Meghana Aditya - 07/05/2022 4:08 PM EST Due to change in provider's schedule, appt on 08/21/2022 needs rescheduled. Patient notified via Natanael Ulien message on 07/05/2022. Meghana Burgess documented in this encounterDayton Va Medical Center01-12-2023 Miscellaneous Notes* Telephone Encounter - Abdulaziz Caldera MD - 07/26/2022 3:09 PM EST Thanks. * Telephone Encounter - Ann Castillo RN - 07/26/2022 3:04 PM EST Darlyn, a nurse with [facility] calling to state she has discharged pt from detention today. Pt is doing really well. No call back needed. Thank you. documented in this encounterDayton [facility] Center01-11-2023 Miscellaneous Notes* Telephone Encounter - Suzanne Lino RN - 07/25/2022 1:42 PM EST Last Office Visit: 07/12/2022 Future Office Visit: 08/09/2022 Requested Prescriptions Pending Prescriptions Disp Refills amLODIPine (NORVASC) 2.5 mg tablet 30 tablet 5 Sig: Take 1 tablet by mouth once daily. Date of Last Labs: 03/02/2022 documented in this encounterDayton Va Medical Center01-03-2023 Miscellaneous Notes* Telephone Encounter - Abdulaziz Caldera MD - 07/17/2022 12:58 PM EST Reviewed and agree. * Telephone Encounter - Halima Diaz RN - 07/17/2022 12:51 PM EST Maverick PT calling from [facility] to report plan of care for patient and PT will visit patient 2 times a week for 3 weeks. PT will work with patient on functional mobility training. Halima Diaz RN documented in this encounterDayton Va Medical Center01-03-2023 Miscellaneous Notes* Telephone Encounter - Abdulaziz Caldera MD - 07/17/2022 11:18 AM EST Reviewed. * Telephone Encounter - Eva Schmid LPN - 07/17/2022 11:12 AM EST Barbi from [facility] calling with OT plan of care, one time visit only, patient denies any further OT needs. No call back needed. documented in this encounterDayton Va Medical Center12-30-2022 Miscellaneous Notes* Telephone Encounter - Ewa Andino Ma - 07/13/2022 11:30 AM EST Left detailed message on confidential line Ewa Andino Ma * Telephone Encounter - Abdulaziz Caldera MD - 07/13/2022 11:01 AM EST agree * Telephone Encounter - Ann Castillo RN - 07/13/2022 10:00 AM EST Chiki, a nurse with [facility] calling with Alf Plan of Care for patient: Patient will be seen 1 time per week for 4 weeks for BP monitoring. No call back needed if provider agreeable. Thank you. documented in this [facility]12-29-2022 Miscellaneous Notes* Telephone Encounter - Ewa Andino Ma - 07/12/2022 10:53 AM EST Karly was notified Ewa Andino Ma * Telephone Encounter - Abdulaziz Caldera MD - 07/12/2022 10:47 AM EST Agree and will follow * Telephone Encounter - Marcella Alvarez RN - 07/12/2022 10:07 AM EST Karly with [facility] called and reports Pt was discharged yesterday and they received a referral for PT/OT/SN. They are going to do their start of care tomorrow, and she was asking if the provider would be willing to follow. documented in this [facility]12-26-2022 Miscellaneous Notes* Telephone Encounter - Suzanne Lino RN - 07/09/2022 11:46 AM EST Last Office Visit: 04/16/2022 Future Office Visit: 09/17/2022 Requested Prescriptions Pending Prescriptions Disp Refills dulaglutide (TRULICITY) 1.5 mg/0.5 mL pen injector 12 Each 3 Sig: Inject 1.5 mg subcutaneously one time a week. Inject once per week. Discard Pen After Date of Last Labs: 03/02/2022 documented in this [facility]12-12-2022 Miscellaneous Notes* Telephone Encounter - [...] patient. Tania Heller LPN documented in this encounterDayton Va Medical Center11-02-2022 Miscellaneous Notes* Telephone Encounter - [...] you. Mila Castro LPN documented in this encounterDayton Va Medical Center10-04-2022 History of Present illness Narrative* [...] evaluation of folllow up after hospitalization in [facility]. he was admitted because of [...] others Since covid hit they went [facility] and was staying in the house [...] (HCC) 09/08/2010 Diabetic retinopathy of right eye ([facility]) mild Diverticulosis of colon (without mention of [...] delayed closure on 05/28/18. Dr. Obregon at [facility] COLON[facility]COPY 10/10/2021 repeat in 3 years [...] week. Discard Pen After blood sugar diagnostic (AlaiTOUCH ULTRA TEST) test strip Test blood sugar(s) [...] gait ,unsteady Cannot tandem Jojo Kaur M.D. [facility] [place] Department of Neurology Total time in minutes [...] lights on at night. documented in this encounterDayton Va Medical Center10-04-2022 Miscellaneous Notes* Telephone Encounter - Abdulaziz Caldera MD - 04/17/2022 11:24 AM EDT Reviewed. * Telephone Encounter - MERYL Zamudio - 04/17/2022 11:03 AM EDT Behavioral Health Social Work Progress Note Patient identified for [facility] from: PCP Reason for referral: Resources Behavioral Health Resources: Psychology - talk therapy [facility] encounter type: Telephone Encounter Attempts to Outreach: 1 attempt Referral made: Psychology - External Psychology-External referral type: Therapy Reason for external referral: Wait times at [facility] too long Final Disposition: Resources given Patient Discharged?: Yes Patient reported that caregiver was able to meet their needs today?: Yes SW placed a phone call to patient at the request of the PCP. Pt reported he is looking for talk therapy referrals at this time. SW provided the following referrals via phone: [facility] [address], [address], [facility] [address] *[facility]ing [facility] [address] [address] *counseling [facility] [address], [address] [place] [address] *counseling [facility] [address] [place] [address] FEDERICO Zamudio April 17, 2022 documented in this encounterDayton Va Medical Center10-03-2022 History of Present illness Narrative* [...] Benign-Dr. 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 Dr. Obregon at [facility] COLONOSCOPY 10/10/2021 repeat in 3 years [...] week. Discard Pen After blood sugar diagnostic (orangutrans ULTRA TEST) test strip Test blood sugar(s) [...] Abs Lymph 1.00 - 4.00 k/uL 1.81 Letcher% % 6.9 Abs Letcher <0.87 k/uL 0.86 Eosin% % 3.1 Abs [...] regimen. Abdulaziz Caldera MD documented in this encounterDayton Va Medical Center10-03-2022 Evaluation note* Diagnosis Type 2 [...] tract symptoms (LUTS) documented in this encounter [facility] History of Present illness Narrative* Roselia Madrigal, MARYLU.DAMAGE APPRAISER - 04/06/2022 9:40 AM EDT 04/06/2022 Patient [...] Benign-Dr. 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 FOR CHOLESTEROL. blood sugar diagnostic (orangutrans ULTRA TEST) test strip Test blood sugar(s) [...] which included preparing to see the patient, [id number] patient care, completing clinical documentation, obtaining and/or reviewing separately obtained history, performing a medically appropriate examination, and counseling and educating the patient/family/caregiver. documented in this encounterDayton Va Medical Center09-21-2022 Miscellaneous Notes* Telephone Encounter [...] EDT ----- Please forward INR to doctor household refrigeration mechanic Roselia Madrigal APRN.DAMAGE APPRAISER documented in this encounterDayton Va Medical Center09-16-2022 History of Present illness Narrative* Zachary Obregon [...] polyneuropathy associated with type 2 diabetes mellitus ([facility]) Plan: Patient was seen and evaluated. Nails [...] Care Merlene Martinez LPN documented in this encounterDayton Va Medical Center09-16-2022 Instructions* Patient Instructions* Zachary Obregon [...] (or decreased sensation in your feet) a tissue inserter should always cut your toenails. Be Careful [...] Go to your health care provider or tissue inserter to treat these conditions. documented in this encounterDayton Va Medical Center09-09-2022 History of Present illness Narrative* David Cleve, PT - 03/23/2022 12:03 PM EDT Episode [...] 01/12/22 through 03/15/22 Goals updated on 03/23/2022. [place] in home exercise program. (Met) Patient will [...] 42 David Poon PT documented in this encounterDayton Va Medical Center09-08-2022 Miscellaneous Notes* Telephone Encounter - Maggy Ibarra Pss - 03/22/2022 1:49 PM EDT Pharmacy verified in [facility] Patient has been identified by name [...] advise. Maggy Ibarra Pss documented in this encounterDayton Va Medical Center09-02-2022 History of Present illness Narrative* David Poon, [...] 40 ALISIA Whiting PT documented in this encounterDayton Va Medical Center08-29-2022 History of Present illness Narrative* David Poon [...] Treatment Time Minutes (timed/untimed): 41 Karen Weber, STONE UNLOADER David Poon PT documented in this encounterDayton Va Medical Center08-26-2022 Miscellaneous Notes* Addendum Note - David Poon PT - 03/09/2022 1:18 PM EDTAddended by: DAVID POON on: 03/09/2022 01:18 PM Modules accepted: Orders documented in this encounterDayton Va Medical Center08-26-2022 History of Present illness Narrative* David Poon PT - 03/09/2022 10:32 AM EDT Episode Visit Count: 14 Therapist That Will Oversee The Plan Of Care: aDvid Poon Start of Care Date: 01/12/22 Onset [...] 01/12/22 through 03/15/22 Goals updated on 03/09/2022. [place] in home exercise program. (Met) Patient will [...] Patient to be seen for Therapeutic exercise (58162);Neuromuscular re-education (82247);Gait Training (14594);Patient/Family/Caregiver Education PLAN FOR NEXT VISIT: Add bridging [...] 42 David Poon PT documented in this encounterDayton Va Medical Center08-24-2022 Miscellaneous Notes* Telephone Encounter [...] testing Madison Ma Cma documented in this encounterDayton Va Medical Center08-24-2022 Instructions* Patient Instructions* Abdulaziz Caldera MD - 03/07/2022 11:45 AM EDT Please take 2,000 units of vitamin D daily over the counter. documented in this encounterDayton Va Medical Center08-24-2022 History of Present illness Narrative* Abdulaziz Caldera MD - 03/07/2022 11:19 AM EDT Chief Complaint Patient presents with: 6 Month Exam ER F/U HPI Richard Roy is a 76 year old male who presents here today for ER Follow Up.. Patient evaluated at [facility] ED on 03/02 for complaint of [...] delayed closure on 05/28/18. Dr. Obregon at [facility] COLON[facility]COPY 10/10/2021 repeat in 3 years [...] ONCE DAILY. FOR CHOLESTEROL. blood sugar diagnostic (AOMiUCH ULTRA TEST) test strip Test blood sugar(s) [...] Abs Lymph 1.00 - 4.00 k/uL 1.81 Letcher% % 6.9 Abs Letcher <0.87 k/uL 0.86 Eosin% % 3.1 Abs [...] PANEL Abdulaziz Caldera MD documented in this encounterDayton Va Medical Center08-22-2022 History of Present illness Narrative* David Poon, [...] 40 David Poon PT documented in this encounterDayton Va Medical Center08-19-2022 History of Present illness Narrative* David Poon [...] 25 Total Treatment Time Minutes (timed/untimed): 45 Daivd Poon PT documented in this encounterDayton Va Medical Center08-15-2022 History of Present illness Narrative* David Poon [...] 45 David Poon PT documented in this encounterDayton Va Medical Center08-12-2022 History of Present illness Narrative* David Poon PT - 02/23/2022 4:20 PM EDT Episode Visit Count: 10 Therapist That Will Oversee The Plan Of Care: Cleve David Start of Care Date: 01/12/22 Onset [...] Treatment Time Minutes (timed/untimed): 43 Karen Weber, STONE UNLOADER David Poon PT documented in this encounterDayton Va Medical Center08-03-2022 History of Present illness Narrative* David Poon [...] 47 David Poon PT documented in this encounterDayton Va Medical Center07-29-2022 History of Present illness Narrative* David Poon [...] 01/12/22 through 03/15/22 Goals updated on 02/09/2022. [place]ulloch in home exercise program. (Met) Patient will [...] Patient to be seen for Therapeutic exercise (44963);Neuromuscular re-education (44159);Gait Training (05870);Patient/Family/Caregiver Education PLAN FOR NEXT VISIT: Continue to [...] 44 David Poon PT documented in this encounterDayton Va Medical Center07-26-2022 Miscellaneous Notes* Telephone Encounter [...] pharmacy. No need to notify patient. Nola Lockhart documented in this encounterDayton Va Medical Center07-22-2022 History of Present illness [...] Patient denies pain or falls. He reports caremn up early as heehad an EEG test [...] 43 ALISIA Whiting PT documented in this encounterDayton Va Medical Center07-21-2022 Miscellaneous Notes* Telephone Encounter [...] capsule by mouth one time a week. UNHA: No OMAR-01/02/22 Labs-01/13/22 NOV-07/04/22 RX INSTRUCTIONS: Patient aware RX will be sent to pharmacy. No need to notify patient. Eulalia Sedinger [employer] documented in this encounterDayton Va Medical Center07-19-2022 History of Present illness [...] 43 ALISIA Whiting PT documented in this encounterDayton Va Medical Center07-12-2022 Miscellaneous Notes* Telephone Encounter [...] you. Rebecca Gonzales RN documented in this encounterDayton Va Medical Center07-12-2022 History of Present illness [...] Weber, ALISIA Byrd PT documented in this encounterDayton Va Medical Center07-08-2022 Miscellaneous Notes* Telephone Encounter [...] on driving. Please advise. documented in this encounterDayton Va Medical Center07-01-2022 History of Present illness Narrative* David Poon, [...] of Care: created on 01/12/22 through 03/15/22 [place] in home exercise program. Patient will demonstrate [...] Planned: 16 Planned Treatment Interventions: Therapeutic exercise (25302);Neuromuscular re- education (39688);Gait Training (59378);Patient/Family/Caregiver Education PLAN FOR NEXT VISIT: Review HEP [...] 42 David Poon PT documented in this encounterDayton Va Medical Center07-01-2022 Miscellaneous Notes* Telephone Encounter [...] schedule at his convenience. Thanks, Roselia Madrigal APRN.KOSTAS * Telephone Encounter - Eva Schmid LPN [...] Pending consult. Please advise documented in this encounterDayton Va Medical Center06-29-2022 Miscellaneous Notes* Telephone Encounter - Mila Sharma - 01/10/2022 4:42 PM EDT Pt notified. If he has any further episodes he will contact PCP for further eval. Mila Sharma * Telephone Encounter - Mila Sharma - 01/10/2022 4:40 PM EDT ----- Message from Justina Monique APRN.KOSTAS sent at 01/10/2022 11:33 AM EDT ----- Please call patient and notify him. Echocardiogram is stable. Valve replacement function is stable.No cardiac structure/function changes to explain his syncope/collapse. Thank you! documented in this encounterDayton Va Medical Center06-29-2022 Miscellaneous Notes* Result QuickNote - Justina Monique APRN.CNP - 01/10/2022 11:33 AM EDT Please call patient and notify him. Echocardiogram is stable. Valve replacement function is stable.No cardiac structure/function changes to explain his syncope/collapse. Thank you! documented in this encounterDayton Va Medical Center06-24-2022 History of Present illness [...] shared medical record. REFERRING PHYSICIAN: Abdulaziz Caldera [address] [facility] [address] Accompanied by: Spouse ASSESSMENT: 76 year old [...] evaluation of folllow up after hospitalization in [facility]. he was admitted because of [...] others Since covid hit they went to [facility] and was staying in the house [...] Benign-Dr. 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 Dr. Obregon at [facility] COLONOSCOPY 10/10/2021 repeat in 3 years [...] by mouth once daily. blood sugar diagnostic (AlaiTOUCH ULTRA TEST) test strip Test blood sugar(s) [...] gait ,unsteady Cannot tandem Jojo Kaur M.D. [facility] [place] Department of Neurology January 05, 2022 Total [...] lights on at night. documented in this encounterDayton Va Medical Center06-21-2022 Miscellaneous Notes* Telephone Encounter - Justina Garcia LPN - 01/02/2022 8:06 AM EDT I spoke to and informed him of Justina's response to lipid panel results. Patient voiced understanding. Justina Garcia LPN * Telephone Encounter - Justina Garcia LPN - 01/02/2022 7:43 AM EDT ----- Message from Justina Monique APRN.DAMAGE APPRAISER sent at 01/02/2022 7:38 AM EDT ----- Please call patient and notify him cholesterol has good control. Thank you! documented in this encounterDayton Va Medical Center06-20-2022 History of Present illness Narrative* Abdulaziz Caldera MD - 01/01/2022 10:20 AM EDT Chief Complaint Patient presents with: Hospital Follow Up: [facility] discharged 12/29/21 HPI Richard Roy is a 76 year old male who presents here today for Hospital Discharge Follow up. Accompanied today by his . Patient admitted to [facility] from 12/27 to 12/29 after presenting [facility] ED after being found slumped over his tractor at home earlier in the afteernoon. Had been working outside for unknown period of time. Had only eaten cookies and milk that day. Heat index over 100. Back to baseline at the time of evaluation by hospitalist at [facility]. Found to have leukocytosis at [place] [facility] and elevated lactic acid level. Noted [...] echo since it was not completed at [facility]. No other changes to regimen. Patient [...] Benign-Dr. 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 Dr. Obregon at [facility] COLONOSCOPY 10/10/2021 repeat in 3 years [...] by mouth once daily. blood sugar diagnostic (orangutrans ULTRA TEST) test strip Test blood sugar(s) [...] Completed PNEUMOCOCCAL: 65+ Completed Data reviewed MMSE 28 (see letters) ASSESSMENT/PLAN: 1. Syncope and collapse [...] SCRN Abdulaziz Caldera MD documented in this encounterDayton Va Medical Center06-20-2022 Instructions* Patient Instructions* Justina Monique APRN.DAMAGE APPRAISER - 01/01/2022 9:05 AM EDT High Blood [...] risk for high blood pressure. Developed by [employer]. Published by [employer]. Copyright 2014 [employer] and/or one of its subsidiaries. All rights reserved. documented in this encounterDayton Va Medical Center06-20-2022 History of Present illness [...] bothexplain to me he was hospitalized at [facility] for 2 days last week for [...] LE swelling. Records have been requested from [facility]. He is unsure of what testing was completed. An echocardiogram was ordered at his last office visit with me.If this was not completed at [facility], I recommend this be completed for [...] delayed closure on 05/28/18. Dr. Obregon at [facility] COLONOSCOPY 10/10/2021 repeat in 3 years [...] daily. 90 tablet 3 blood sugar diagnostic (orangutrans ULTRA TEST) test strip Test blood sugar(s) [...] injection (DEFINITY) INTRAVENOUS DIRECTED PRN Justina Monique, VICE PRESIDENT OF CUSTOMER SERVICE.DAMAGE APPRAISER sodium chloride 0.9 % (flush) 10 mL (BD POSIFLUSH) 10 mL INTRAVENOUS DIRECTED PRN Justina Monique, VICE PRESIDENT OF CUSTOMER SERVICE.DAMAGE APPRAISER Review of Systems Constitutional: Negative for chills, [...] his head CAD -MILD on [facility] 2004 -stress testing 2013 with [...] 01, 2022, 8:57 AM documented in this encounterDayton Va Medical Center06-19-2022 Note. MICRO - Microbiology PROCEDURE: Blood Culture (bacterial) [*1] SOURCE: Blood BODY SITE: COLLECTED DATE/TIME: 12/27/2021 17:43 EDT RECEIVED DATE/TIME: 12/28/2021 14:37 EDT START DATE/TIME: 12/28/2021 14:37 EDT FREE TEXT SOURCE: FINAL REPORTS Final Report [] Verified Date/Time/Personnel: 12/31/2021 07:29 EDT Staphylococcus epidermidis Isolated from anaerobe bottle only. Refer to previous culture for susceptibility. [id number] PRELIMINARY REPORTS Preliminary Report [] Verified Date/Time/Personnel: 12/30/2021 09:39 EDT Staphylococcus epidermidis Isolated from anaerobe bottle only. Refer to previous culture for susceptibility. [id number] Preliminary Report [] Verified Date/Time/Personnel: 12/28/2021 15:59 EDT Culture has been received in lab and is no growth to date. Routine cultures are held for 5 days. STAINS GSANA [] Verified Date/Time/Personnel: 12/29/2021 14:08 EDT Gram Positive Cocci in clusters Performing Locations *1: This test was performed at: [facility], [address] [place] [address], [phone] , [facility], [facility] ([place])12-31-2021 Note. MICRO - Microbiology PROCEDURE: Blood [...] Locations *1: This test was performed at: [facility], [address] [place] [address], [phone] , [facility], [facility] ([place])12-27-2021 SARS-CoV-2 (COVID-19) RNA ANGELY+probe Ql (Nph)Positive 2 *ABN* (12/27/21 5:43 PM)AO Auto Urine SSComment on above:Result Comment: positive covid cvrb s. tona Evaluation + Plan note Diagnostic Tests Pending * Urinalysis 12/27/21 * Blood Culture (bacterial) 12/27/21 * Blood Culture (bacterial) 12/27/21 [facility] Jordin 06-02-2022 History of Present illness Narrative* Abdulaziz Caldera MD - 12/14/2021 3:13 PM EDT Chief Complaint Patient presents with: Covid Follow Up HPI Richard Roy is a 76 year old male who presents here today for Above Complaints.. Patient positive for COVID in the [facility] ER last week on 12/06. Spoke [...] Benign-Dr. Cazares Diabetes mellitus with neurological manifestation ([facility]) 09/08/2010 Diverticulosis of colon (without mention of [...] delayed closure on 05/28/18. Dr. Obregon at [facility] COLON[facility]COPY 10/10/2021 repeat in 3 years [...] by mouth once daily. blood sugar diagnostic (orangutrans ULTRA TEST) test strip Test blood sugar(s) [...] detail. Abdulaziz Caldera MD documented in this encounterDay[facility]05-27-[facility]22 History of Present illness [...] today for Above Complaints.. Patient evaluated at [facility] ER on 12/06 for complaint of generalized weakness, cough, and feeling off balance and developed cough which started on 12/04. Denied other COVID symptoms at that time. Lab workup in the ER was unremarkable aside from positive COVID test and INR of 3.3. UA unremarkable. CXR showed some ill defined densities in RLL which was likely 2/2 COVID infection. Reyno to be well enough and discharged home [...] Benign-Dr. 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 Dr. Obregon at [facility] COLON[facility]COPY 10/10/2021 repeat in 3 years [...] by mouth once daily. blood sugar diagnostic (orangutrans ULTRA TEST) test strip Test blood sugar(s) [...] these interactions. [facility] Since his symptoms are mild, he would prefer to rest at home. Discussed risks and benefits of treatment and that he is high risk for severe infection. Red flags for re-assessment reviewed with patient in detail. I spent a total of 25 minutes on the date of the service which included preparing to see the patient, [id number] patient care, completing clinical documentation, obtaining and/or reviewing separately obtained history, performing a medically appropriate examination, counseling and educating the pat ient/family/caregiver and ordering medications, tests, or procedures. Abdulaziz Caldera MD documented in this encounterDayton [facility] Center05-27-2022 Miscellaneous Notes* Telephone Encounter [...] with one of our providers or with [facility] care online. * Telephone Encounter - David Martinez Pss - 12/08/2021 2:16 PM EDT Patient called stating he was at [facility] ER on 12/06. Tested positive for covid. Patient was informed tocontact the office within 5 days to inform. Please advise patient when he can be seen in office. documented in this encounterDayton [facility] Center05-09-2022 Miscellaneous Notes* [place] [facility] [place] 9:49 AM EDT Patient has been identified by name and date of : Yes Pending Prescriptions Disp Refills METFORMIN ER 500 MG 24 HR TABLET,EXTENDED RELEASE Sig: Take 1 tablet by mouth daily with breakfast. NUHA: No OMAR-09/06/21 Labs-08/30/21 NOV-03/07/22 RX INSTRUCTIONS: Patient aware RX will be sent to pharmacy. No need to notify patient. [place] [facility] [place] in this encounterDayton [facility] Medical Center04-11-2022 Instructions* Patient Instructions* Marcella Park PA-C - 10/23/2021 1:25 PM EDT -Recommend daily fiber supplement and plenty of fluids The following instructions are important for you related to your office visit today with the [facility] General Surgeons. INSTRUCTIONS FOR DIVERTICULA I [...] you should contact our office immediately @ [phone] and ask to be transferred to the General Surgery department. The following instructions are important for you related to your office visit today with the [facility] Sur[facility]. INSTRUCTIONS FOLLOWING A POLYP [...] you should contact our office immediately @ [phone] and ask to be transferred to the General Surgery department. documented in this encounterDayton Va Medical Center04-11-2022 History of Present illness Narrative* Marcella Park PA-C - 10/23/2021 1:09 PM EDT FOLLOW UP VISIT - ENDOSCOPY NAME: Richard Roy [facility] NO.: [id number] DATE OF SERVICE: 10/23/2021 : 1945 REFERRING [...] which included preparing to see the patient, [id number] patient care, completing clinical documentation, obtaining and/or reviewing separately obtained history, counseling and educating the patient/family/caregiver, communicating with other HCPs (not separately reported), independently interpreting results (not separately reported) and communicating results to the patient/family/caregiver. Marcella Park PA-C documented in this encounterDayton [facility] Medical Center03-29-2022 Nurse Note* Caroline Larkin [...] answered. Caroline Larkin RN documented in this encounterDayton Va Medical Center03-29-2022 History and physical note [...] Benign-Dr. 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 Dr. Obregon at [facility] COLONOSCOPY FLX DX W/COLLJ SPEC WHEN [...] by mouth once daily. blood sugar diagnostic (AlaiTOUCH ULTRA TEST) test strip Test blood sugar(s) [...] patient was offered a surgery/procedure [facility] a [facility] facility. 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 Patient aware RX will be sent to pharmacy. No need to notify patient. Violette Lockhart documented in this encounterDayton Va Medical Center03-23-2022 Miscellaneous Notes* Telephone Encounter [...] advise, Halima Diaz RN documented in this encounterDayton Va Medical Center02-02-2022 Miscellaneous Notes* Telephone Encounter - Garland Vicente - 08/16/2021 9:36 AM EST 10-10-2021 [facility] documented in this encounterDayton Va Medical Center01-13-2022 NoteHNO ID: [id number] Author: REY Burt Service: Radiology Author Type: Coke Crusher Operator Type: Progress Notes Filed: 07/27/2021 10:50 [...] Roy DATE: July 27, 2021 TIME: 10:49 [id number] History of Past illness Narrative* Problem Noted [...] of this encounter (statuses as of 10/04/2021) [facility] History of Past illness [...] of this encounter (statuses as of 10/05/2021) [facility] of [facility] illness [...] of this encounter (statuses as of 10/11/2021) [facility] of [facility] illness [...] of this encounter (statuses as of 10/16/2021) [facility] of [facility] illness [...] of this encounter (statuses as of 10/27/2021) [facility] of [facility] illness [...] of this encounter (statuses as of 11/20/2021) [facility] of [facility] illness [...] of this encounter (statuses as of 12/12/2021) [facility] of [facility] illness [...] of this encounter (statuses as of 12/13/2021) [facility] of [facility] illness [...] of this encounter (statuses as of 12/14/2021) [facility] of [facility] illness [...] of this encounter (statuses as of 01/01/2022) [facility] of [facility] illness [...] of this encounter (statuses as of 01/02/2022) [facility] of [facility] illness [...] of this encounter (statuses as of 01/02/2022) [facility] of [facility] illness [...] of this encounter (statuses as of 01/06/2022) [facility] illness [...] of this encounter (statuses as of 01/10/2022) [facility] [...] of this encounter (statuses as of 01/11/2022) [facility] illness [...] of this encounter (statuses as of 01/12/2022) [facility] illness [...] of this encounter (statuses as of 01/12/2022) [facility] illness [...] of this encounter (statuses as of 01/19/2022) [facility] [...] of this encounter (statuses as of 01/23/2022) [facility] [...] of this encounter (statuses as of 01/25/2022) [facility] [...] of this encounter (statuses as of 01/30/2022) [facility] [...] of this encounter (statuses as of 02/01/2022) [facility] [...] of this encounter (statuses as of 02/02/2022) [facility] [...] of this encounter (statuses as of 02/02/2022) [facility] [...] of this encounter (statuses as of 02/06/2022) [facility] [...] of this encounter (statuses as of 02/09/2022) [facility] [...] of this encounter (statuses as of 02/14/2022) [facility] [...] of this encounter (statuses as of 02/26/2022) [facility] [...] of this encounter (statuses as of 03/02/2022) [facility] [...] of this encounter (statuses as of 03/05/2022) [facility] [...] of this encounter (statuses as of 03/07/2022) [facility] [...] of this encounter (statuses as of 03/08/2022) [facility] [...] of this encounter (statuses as of 03/09/2022) [facility] [...] of this encounter (statuses as of 03/12/2022) [facility] [...] of this encounter (statuses as of 03/16/2022) [facility] [...] of this encounter (statuses as of 03/23/2022) [facility] [...] of this encounter (statuses as of 04/03/2022) [facility] [...] of this encounter (statuses as of 04/04/2022) [facility] [...] of this encounter (statuses as of 04/06/2022) [facility] [...] of this encounter (statuses as of 04/17/2022) [facility] [...] of this encounter (statuses as of 04/17/2022) [facility] [...] of this encounter (statuses as of 04/19/2022) [facility] [...] of this encounter (statuses as of 05/16/2022) [facility] [...] of this encounter (statuses as of 06/25/2022) [facility] [...] of this encounter (statuses as of 07/14/2022) [facility] [...] of this encounter (statuses as of 07/15/2022) [facility] [...] of this encounter (statuses as of 07/18/2022) [facility] [...] of this encounter (statuses as of 07/18/2022) [facility] [...] of this encounter (statuses as of 07/19/2022) [facility] [...] of this encounter (statuses as of 07/20/2022) [facility] [...] of this encounter (statuses as of 07/25/2022) [facility] [...] of this encounter (statuses as of 07/26/2022) [facility] [...] of this encounter (statuses as of 07/27/2022) [facility] [...] of this encounter (statuses as of 07/31/2022) [facility] [...] of this encounter (statuses as of 08/06/2022) [facility] [...] of this encounter (statuses as of 08/07/2022) [facility] [...] of this encounter (statuses as of 08/09/2022) [facility] [...] of this encounter (statuses as of 08/14/2022) [facility] [...] of this encounter (statuses as of 08/16/2022) [facility] [...] of this encounter (statuses as of 08/28/2022) [facility] [...] of this encounter (statuses as of 09/07/2022) [facility] [...] of this encounter (statuses as of 09/09/2022) [facility] [...] of this encounter (statuses as of 09/25/2022) [facility] [...] of this encounter (statuses as of 10/23/2022) [facility] [...] of this encounter (statuses as of 11/20/2022) [facility] [...] of this encounter (statuses as of 11/20/2022) [facility] [...] of this encounter (statuses as of 12/13/2022) [facility] [...] of this encounter (statuses as of 12/14/2022) [facility] [...] of this encounter (statuses as of 12/18/2022) [facility] [...] of this encounter (statuses as of 12/25/2022) [facility] [...] of this encounter (statuses as of 12/27/2022) [facility] [...] of this encounter (statuses as of 12/31/2022) [facility] [...] of this encounter (statuses as of 01/03/2023) [facility] [...] of this encounter (statuses as of 01/04/2023) [facility] [...] of this encounter (statuses as of 01/04/2023) [facility] [...] of this encounter (statuses as of 01/25/2023) [facility] [...] of this encounter (statuses as of 01/29/2023) [facility] note* Diagnosis Type 2 diabetes mellitus with diabetic neuropathy, with long-term current use of insulin (HCC) Status post aortic valve repair Other postprocedural status Chronic anticoagulation Long-term (current) use of anticoagulants [facility]* Diagnosis Colon cancer screening Special screening for malignant neoplasms, colon documented in this encounter [facility] note* Diagnosis Colon cancer screening- Primary Special screening for malignant neoplasms, colon [facility]* Diagnosis Diverticulosis- Primary Diverticulosis of colon (without mention of hemorrhage) Cecal polyp documented in this encounter [facility] noteNo assessment information availableWOhio State [facility] Work Phone: Evaluation note* Diagnosis COVID-19- Primary documented in this encounter [facility] note* Diagnosis COVID-19- Primary documented in this encounter [facility] note* Diagnosis Onset Date Resolution Status Acute dehydration acute ANTHONY (acute kidney injury) ac telida Heat exhaustion acute Hyperkalemia acute Lactic acidosis acute Leukocytosis acute [facility] Work Phone: Evaluation note* Diagnosis Hyperlipidemia with target LDL less than 100- Primary Other and unspecified hyperlipidemia Primary hypertension Unspecified essential hypertension Thoracic aortic aneurysm without rupture (HCC) Thoracic aneurysm without mention of rupture Coronary artery disease involving [place] coronary artery of [place] heart without angina pectoris Syncope, unspecified syncope type Obesity, Class II, BMI 35-39.9 Obesity, unspecified documented in this encounter [facility] note* Diagnosis Syncope and collapse- Primary Altered mental status, unspecified altered mental status type Urinary incontinence, unspecified type Benign prostatic hyperplasia with nocturia Nocturia Vitamin D deficiency, unspecified Wound of left lower extremity, initial encounter Encounter for screening for malignant neoplasm of prostate Special screening for malignant neoplasm of prostate documented in this encounter [facility] note* Diagnosis Abnormality of gait due to impairment of balance- Primary Altered mental status, unspecified altered mental status type documented in this encounter [facility] note* Diagnosis Chronic anticoagulation Long-term (current) use of anticoagulants Thoracic aortic aneurysm without rupture (HCC) Thoracic aneurysm without mention of rupture Status post aortic valve repair Other postprocedural status [facility] Diagnosis Type 2 diabetes mellitus with diabetic neuropathy, with long-term current use of insulin (HCC)- Primary [facility] Diagnosis Abnormality of gait due to impairment of balance- Primary [facility] Diagnosis Abnormality of gait due to impairment of balance- Primary [facility] Diagnosis Vitamin D deficiency Unspecified vitamin D deficiency [facility] Diagnosis Abnormality of gait due to impairment of balance- Primary [facility] Vitamin D deficiency Unspecified vitamin D deficiency [facility] Diagnosis Type 2 diabetes mellitus with stage 3 chronic kidney disease, with long-term current use of insulin ([facility]) [facility] Diagnosis Abnormality of gait due to impairment of balance- Primary [facility] Diagnosis Type 2 diabetes mellitus with diabetic neuropathy, with long-term current use of insulin ([facility]) [facility]* Diagnosis Abnormality of gait due to impairment of balance- Primary [facility] Diagnosis Abnormality of gait due to impairment of balance- Primary [facility] Diagnosis Onset Date Resolution Status Acute dehydration resolved Heat exhaustion resolved [facility] Work Phone: Evaluation note* Diagnosis Abnormality of gait due to impairment of balance- Primary [facility]* Diagnosis Status post aortic valve repair Other postprocedural status Chronic anticoagulation Long-term (current) use of anticoagulants [facility]* Diagnosis Generalized weakness- Primary Other malaise and fatigue Supratherapeutic INR Abnormal coagulation profile ANTHONY (acute kidney injury) (HCC) Acute kidney failure, unspecified [facility] Diagnosis Abnormality of gait due to impairment of balance- Primary [facility] Diagnosis Abnormality of gait due to impairment of balance- Primary [facility]* Diagnosis Urinary incontinence, unspecified type [facility] Diagnosis Abnormality of gait due to impairment of balance- Primary [facility]* Diagnosis Onychomycosis- Primary Dermatophytosis of nail Pain in toe of left foot Pain in limb Amputated toe of right foot (HCC) Diabetic polyneuropathy associated with type 2 diabetes mellitus (HCC) [facility]* Diagnosis Generalized weakness- Primary Other malaise and fatigue Encounter for immunization Need for other specified prophylactic vaccination against single bacterial disease Mild depression Depressive disorder, not elsewhere classified [facility]* Diagnosis Generalized anxiety disorder- Primary Polyneuropathy Unspecified hereditary and idiopathic peripheral neuropathy [facility]* Diagnosis Urinary incontinence, unspecified type [facility]* Diagnosis Onset Date Resolution Status History of pulmonary embolism acute History of thoracic aortic aneurysm repair acute NSTEMI, initial episode of care acute HTN (hypertension) [facility] Work Phone: Evaluation note* Diagnosis Dizziness- Primary Dizziness and giddiness Chronic frontal sinusitis [facility]* Diagnosis Type 2 diabetes mellitus with diabetic neuropathy, with long-term current use of insulin ([facility])- Primary Diabetic polyneuropathy associated with type 2 diabetes mellitus (HCC) NSTEMI (non-ST elevated myocardial infarction) ([facility]) Acute myocardial infarction, subendocardial infarction, episode of [...] disease, with long-term current use of insulin ([facility]) 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, macular edema presence unspecified ([facility]) [facility]* Diagnosis Driving safety issue- Primary Other specified personal history presenting hazards to health [facility] Onychomycosis- Primary Dermatophytosis of nail Pain in toe of left foot Pain in limb Amputated toe of right foot (HCC) Diabetic polyneuropathy associated with type 2 diabetes mellitus (HCC) documented in this encounter [facility] note* Diagnosis Spinal stenosis, lumbar region, without neurogenic claudication- Primary Primary osteoarthritis of both knees Primary localized osteoarthrosis, lower leg documented in this encounter [facility] note* Diagnosis Spinal stenosis, lumbar region, without neurogenic claudication- Primary Primary osteoarthritis of both knees Primary localized osteoarthrosis, lower leg documented in this encounter [facility] note* Diagnosis Spinal stenosis, lumbar region, without neurogenic claudication- Primary Primary osteoarthritis of both knees Primary localized osteoarthrosis, lower leg documented in this encounter [facility] note* Diagnosis Spinal stenosis, lumbar region, without neurogenic claudication- Primary Primary osteoarthritis of both knees Primary localized osteoarthrosis, lower leg documented in this encounter [facility] note* Diagnosis Spinal stenosis, lumbar region, without neurogenic claudication- Primary Primary osteoarthritis of both knees Primary localized osteoarthrosis, lower leg [facility] Diagnosis Spinal stenosis, lumbar region, without neurogenic claudication- Primary Primary osteoarthritis of both knees Primary localized osteoarthrosis, lower leg documented in this encounter [facility] note* Diagnosis Onset Date Resolution Status Confusion acute Weakness acute [facility] Work Phone: Evaluation note* Diagnosis Onset Date Resolution Status Confusion acute Weakness acute ABLA (acute blood loss anemia) acute Acute encephalopathy acute Supratherapeutic INR acute Syncope acute Upper gastrointestinal bleeding acute Warfarin-induced coagulopathy acute [facility] Work Phone: Evaluation note* Diagnosis Onset [...] acute Warfarin-induced coagulopathy acute HTN (hypertension) chronic [facility] Work Phone: Evaluation note* Diagnosis Onset [...] type II acute Sick sinus syndrome acute [facility] Work Phone: Evaluation note* Diagnosis Onset [...] (INR) acute UTI (urinary tract infection) acute [facility] Work Phone: Evaluation note* Diagnosis Onset [...] UTI (urinary tract infection) acute Weakness acute [facility] Work Phone: Evaluation note* Diagnosis Onset [...] degree AV block, Mobitz type II [facility] Work Phone: Evaluation note* Diagnosis Onset [...] degree AV block, Mobitz type II [facility] Work Phone: Evaluation note* Diagnosis Onset [...] degree AV block, Mobitz type II [facility] Work Phone: Evaluation note* Diagnosis Onset Date Resolution Status Presence of cardiac pacemaker acute Syncope acute Second degree AV block, Mobitz type II chronic Sick sinus syndrome chronic Atrial fibrillation acute HLD (hyperlipidemia) acute Presence of cardiac pacemaker acute HTN (hypertension) chronic Second degree AV block, Mobitz type II [facility] Work Phone: Evaluation note* Diagnosis Onset Date Resolution Status Atrial fibrillation acute HLD (hyperlipidemia) acute Presence of cardiac pacemaker acute HTN (hypertension) chronic Second degree AV block, Mobitz type II [facility] Work Phone: History and physical note Author Dr. Aly [facility] January 04, 2023 4:32pm Note Date/Time January 04, 2023 4:12 pm [facility] Medical Records Department [address] [place] [address] H&P Exam - Hospitalist 01/04/23 1607 MR#: [id number] Acct: [id number] Name: RICHARD ROY Rep #:[id number] : 1945 77 From: Karen Aly MD PCP: Dr. Luis Caldera MD Status :ADM LUIS ANGEL Location: [place] [address] HPI - General General Date of Admission: 01/04/23 Date of Service: 01/04/23 Chief Complaint: Confusion, falls. HPI Narrative The patient is a 77 y/o M w/ PMHx: AAA s/p repair, Hx COVID-19, Hx GI bleed, Valvular heart disease s/p AVR, HTN, HLD, VTE w/ Hx DVT/PE, Diabetes mellitus type II, Obesity who presents to the [facility] ED on 01/04/23 with history of [...] no acute intracranial abnormality, right maxillary sinusitis. [facility] Medical History Amputation of [...] 78.3 H, Lymph % (Auto) 12.8 L, [place] % (Auto) 5.9, Eos % (Auto) 1.7, [...] Sl. Cloudy, Urine pH 6.0, Ur Specific [place] 1.020, Urine Protein 15 H, Urine Glucose [...] type II, Obesity who presents to the [facility] ED on 01/04/23 with history of [...] 60 minutes. Charges/Coding Visit Charges Inpatient E&M: 66985 Init Hosp L2 01/04/23 1632 <Electronically signed by Karen Aly MD> Cosigner Signature (if applicable): CC: Dr. Karen Aly MD; Dr. Luis Caldera MD~ Signed [facility] Work Phone: Hospital course Narrative No data available for this section [facility] Hospital Discharge instructions No data available for this section [facility] Hospital Discharge instructions Additional Instructions Work-up [...] days of antibiotics [facility]: Hospital Discharge instructionsAdditional Instructions Blood work did not show any acute findings here today. X-ray did not show any evidence of osteomyelitis of his foot. His head CT did not show any acute findings either. Return with worsening symptoms or any concerns.[facility] Work Phone: Progress note No data available for this section [facility] Progress note Author Liu Hackett [facility] January 26, 2023 3:50pm Note Date/Time January 26, 2023 3:50 pm [facility] Medical Records Department [address] [place] [address] Progress Note - GI 01/26/23 1549 MR#: [id number] Acct: [id number] Name: RICHARD ROY Rep #:[id number] : 1945 77 From: Liu Hackett DO PCP: Dr. Luis Caldera MD Status :ADM IN Location: [place] [address] Subjective Subjective Patient is doing well today. [...] 78.4 H, Lymph % (Auto) 8.1 L, [place] % (Auto) 9.6, Eos % (Auto) 1.6, [...] Heart rate in 50s.. Discussed with the trial justice. No chest pain or tightness. Physical exam [...] ensure healing. Charges/Coding Visit Charges Inpatient E&M: 58184 Subs Hosp L3 01/26/23 1550 <Electronically signed by Liu Hackett DO> Cosigner Signature (if applicable): CC: ~ Signed [facility] Work Phone: Progress note Author Smith Leija [facility] February 13, 2023 3:58pm Note Date/Time February 13, 2023 3:5 8pm [facility] Medical Records Department [address] [place] [address] Progress Note - Infect Disease 02/13/231556 MR#: [id number] Acct: [id number] Name: RICHARD ROY Rep #:[id number] : 1945 77 From: Smith mcdowell MD PCP: Dr. Luis Caldera MD Status :ADM IN Location: [place] [address]1 Physical Exam Narrative Feeling better, no fever, [...] Cosigner Signature (if applicable): CC: ~ Signed [facility] Work Phone: Reason for referral (narrative)* Outpatient Procedure (Routine) - Closed Specialty Diagnoses / Procedures Referred By Contac t Referred To Contact [facility] Diagnoses Colon cancer screening Procedures COLONOSCOPY SCREENING COLONOSCOPY FLX DX W/COLLJ SPEC WHEN PFRMD Marcella Park PA-C [address] [place] [address] [facility] [place] [address] [place] [address] Referral ID Status Reason Start Date Expiration Date V isits Requested Visits Authorized [id number] Closed Auto-Generate d Referral 08/16/2021 08/16/2022 1 1 [facility] for referral (narrative)* Outpatient Procedure (Routine) - Closed Specialty Diagnoses / Procedures Referred By Contac t Referred To Contact [facility] Diagnoses Colon cancer screening Procedures COLONOSCOPY SCREENING COLONOSCOPY FLX DX W/COLLJ SPEC WHEN Marcella Alatorre PA-C [address] [place] [address] [facility] [address] [place] [address] Referral ID Status Reason Start Date Expiration Date V isits Requested Visits Authorized [id number] Closed Auto-Generate d Referral 08/16/2021 08/16/2022 1 1 [facility] for referral (narrative)No reason for referral information [facility] Work Phone: Reason for visit Narrative* Outpatient Procedure (Routine) - Closed Specialty Diagnoses / Procedures Referred By Contac t Referred To Contact [facility] Diagnoses Colon cancer screening Procedures COLONOSCOPY SCREENING COLONOSCOPY FLX DX W/COLLJ SPEC WHEN Marcella Alatorre PA-C [address] [place] [address] [facility] [place] [facility] [place] [address] Referral ID Status Reason Start Date Expiration Date V isits Requested Visits Authorized [id number] Closed Auto-Generate d Referral 08/16/2021 08/16/2022 1 1 [facility] for visit Narrative* Outpatient Procedure (Routine) - Closed Specialty Diagnoses / Procedures Referred By Contac t Referred To [facility] Diagnoses Chronic anticoagulation Thoracic aortic aneurysm without rupture (HCC) Status post aortic valve repair Procedures ECHO TTE W/DOPPLER, COMPLETE Leonie, Justina E, VICE PRESIDENT OF CUSTOMER SERVICE.[facility] [address] [place] [address] [facility] [place] [address] [place] [address] Referral ID Status Reason Start Date Expiration Date V isits Requested Visits Authorized [id number] Closed Auto-Generate d Referral 07/03/2021 07/03/2022 1 1 [facility] Advance Directives No Advanced Directives Records FoundDocuments on File Type Date Recorded 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 [employer] 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 Advance Directive(s) 09/12/2021 7:14 AM Documents on File Type Date Recorded Patient [employer] 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 Advance Directive(s) 09/12/2021 7:14 AM Advance Directive Response Recorded Date/ Time Advance Directives Yes September 16 11:11pm Living Will No December 06, 2021 1 1:07pm Power of Counseling Center Manager No December 06, 2021 11:07pm Advance Directive Response Recorded Date/ Time Name of Medical Power of Counseling Center Manager Gena Roy December 27, 2021 10:36pm Advance Directives Yes September 16 11:11pm Living Will Yes December 27, 2021 10:36pm Power of Counseling Center Manager Yes December 27 10:36pm Advance Directive Response Recorded Date/ Time Name of Medical Power of Counseling Center Manager Gena Roy December 27, 2021 10:36pm Name of Medical Power of Counseling Center Manager TEDDY ROY (SON ) March 02, 2022 2:34pm Advance Directives Yes September 16 11:11pm Living Will Yes March 02 2:34pm Power of Counseling Center Manager Yes March 02, 022 2:34pm Advance Directive Response Recorded Date/ Time Name of Medical Power of Counseling Center Manager teddy roy July 10, 2022 3:06am Advance Directives Yes September 16 10:11pm Living Will Yes July 10, 022 3:06am Power of Counseling Center Manager Yes July 10, 2022 3:06am Advance Directive Response Recorded Date/ Time Name of Medical Power of Counseling Center Manager ? January 04, 2023 11:15am Advance Directives Yes March 5th, 20 14 11:11pm Living Will Yes January 04, 2023 11:15am Power of Counseling Center Manager Yes January 04 11:15am Advance Directive Response Recorded Date/ Time Name of Medical Power of Counseling Center Manager Ciarra Roy (spouse), Teddy Roy (son) January 04, 2023 6:23pm Name of Medical Power of Counseling Center Manager GENA ROY January 21, 2023 8:26am Advance Directives Yes September 16 11:11pm Living Will Yes January 21, 2023 8:26am Power of Counseling Center Manager Yes January 21 8:26am Advance Directive Response Recorded Date/ Time Name of Medical Power of Counseling Center Manager Ciarra Roy (spouse), Teddy Roy (son) January 04, 2023 6:23pm Name of Medical Power of Counseling Center Manager Ciarra Roy January 21, 2023 12:23pm Advance Directives Yes September 16 11:11pm Living Will Yes January 21, 2023 12:23pm Power of Counseling Center Manager Yes January 21 12:23pm Advance Directive Response Recorded Date/ Time Name of Medical Power of Counseling Center Manager Ciarra oRy (spouse), Teddy Roy (son) January 04, 2023 6:23pm Name of Medical Power of Counseling Center Manager Ciarra Roy (spouse) January 27, 2023 6:04pm Advance Directives Yes September 16 11:11pm Living Will Yes January 27, 2023 6:04pm Power of Counseling Center Manager Yes January 27 6:04pm Name of Medical Power of Counseling Center Manager Ciarra Roy January 21, 2023 12:23pm Advance Directive Response Recorded Date/ Time Name of Medical Power of Counseling Center Manager Ciarra Roy (spouse), Teddy Roy (son) January 04, 2023 6:23pm Name of Medical Power of Counseling Center Manager Ciarra Regant January 27, 2023 9:40pm Name of Medical Power of Counseling Center Manager Ciarra Robison, February 10, 2023 9:27pm Advance Directives Yes September 16 14 11:11pm Living Will Yes February 10, 2023 9:27pm Power of Counseling Center Manager Yes February 10 9:27pm Name of Medical Power of Counseling Center Manager Ciarra Regant January 21, 2023 12:23pm Advance Directive Response Recorded Date/ Time Name of Medical Power of Counseling Center Manager Ciarra Roy (spouse), Teddy Roy (son) January 04, 2023 6:23pm Name of Medical Power of Counseling Center Manager Ciarra Regant January 27, 2023 9:40pm Name of Medical Power of Counseling Center Manager Ciarra Robison, February 10, 2023 9:27pm Name of Medical Power of Counseling Center Manager RICHARDDaksha Ciarra, February 11, 2023 4:25pm Advance Directives Yes September 16 11:11pm Living Will Yes February 11, 2023 4:25pm Power of Counseling Center Manager Yes February 11 4:25pm Name of Medical Power of Counseling Center Manager Ciarra Roy January 21, 2023 12:23pm Advance Directive Response Recorded Date/ Time Name of Medical Power of Counseling Center Manager Ciarra Roy (spouse), Teddy Roy (son) January 04, 2023 6:23pm Name of Medical Power of Counseling Center Manager Ciarra Roy January 27, 2023 9:40pm Name of Medical Power of Counseling Center Manager Ciarra Robison, February 10, 2023 9:27pm Name of Medical Power of Counseling Center Manager RICHARDDaksha Ciarra, February 11, 2023 8:40pm Advance Directives Yes September 16 11:11pm Living Will Yes February 11, 2023 8:40pm Power of Counseling Center Manager Yes February 11 8:40pm Name of Medical Power of Counseling Center Manager Ciarra Roy January 21, 2023 12:23pm Advance Directive Response Recorded Date/ Time Name of Medical Power of Counseling Center Manager Ciarra Roy January 27, 2023 9:40pm Name of Medical Power of Counseling Center Manager Ciarra Robison, February 10, 2023 9:27pm Name of Medical Power of Counseling Center Manager RICHARDCiarra Crooks, w david February 11, 2023 8:40pm Advance Directives Yes September 16 11:11pm Living Will Yes February 11, 2023 8:40pm Power of Counseling Center Manager Yes February 11 8:40pm Name of Medical Power of Counseling Center Manager Ciarra Roy January 21, 2023 12:23pm Advance Directive Response Recorded Date/ Time Name of Medical Power of Counseling Center Manager Ciarra Roy January 27, 2023 8:40pm Name of Medical Power of Counseling Center Manager Ciarra Robison, February 10, 2023 8:27pm Name of Medical Power of Counseling Center Manager Ciarra MEEKS, w david February 11, 2023 7:40pm Advance Directives Yes September 16 10:11pm Living Will Yes February 11, 2023 7:40pm Power of Counseling Center Manager Yes February 11 7:40pm Name of Medical Power of Counseling Center Manager Ciarra Roy January 21, 2023 11:23am Advance Directive Response Recorded Date/ Time Name of Medical Power of Counseling Center Manager Ciarra Roy January 27, 2023 8:40pm Name of Medical Power of Counseling Center Manager Ciarra Robison, February 10, 2023 8:27pm Name of Medical Power of Counseling Center Manager Ciarra MEEKS, w david February 11, 2023 7:40pm Advance Directives Yes September 16 10:11pm Living Will No May 30, 2 023 11:36am Power of Counseling Center Manager No May 30, 2023 11:36am Advance Directive Response Recorded Date/ Time Advance Directives Yes September 16 10:11pm Living Will No May 30, 2 023 11:36am Power of Counseling Center Manager No May 30, 2023 11:36am Advance Directive Response Recorded Date/ Time Advance Directives Yes September 16 11:11pm Living Will No May 30, 2 023 12:36pm Power of Counseling Center Manager No May 30, 2023 12:36pm Advance Directive Response Recorded Date/ Time Advance Directives Yes September 16 11:11pm Advance Directive Response Recorded Date/ Time Do you have a Healthcare Power of Counseling Center Manager? Yes February 02, 2025 7:49pm Advance Directives Yes September 16 11:11pm Advance Directive Response Recorded Date/ Time Do you have a Healthcare Power of Counseling Center Manager? Yes February 03, 2025 1:28am Advance Directives Yes September 16 11:11pm Advance Directive Response Recorded Date/ Time Do you have a Healthcare Power of Counseling Center Manager? Yes February 03, 2025 1:28am Do you have a Healthcare Power of Counseling Center Manager? Yes February 27, 2025 6:33pm Advance Directives [...] wk fu / ANA @ 1:30 LABWORK LONG-TERM LAB WORK LONG-TERM [...] LABWORK LABWORK LABWORK 6 M FU LABWORK LONG-TERM LAB WORK Reason for Visit [...] M FU October 12, 2024 1:0 9pm LONG-TERM LAB WORK November 24, 2024 5:0 0am LONG-TERM LAB WORK December 16, 2024 4:0 0am LONG-TERM LAB WORK December 22, 2024 5: 00am [...] 2025 11:1 2pm Chief Complaint Admit Date LONG-TERM LAB WORK November 24, 2024 5:0 0am LONG-TERM LAB WORK December 16, 2024 4:0 0am LONG-TERM LAB WORK December 22, 2024 5: 00am [...] 02, 2025 11:12pm Chief Complaint Admit Date LONG-TERM LAB WORK November 24, 2024 5:0 0am LONG-TERM LAB WORK December 16, 2024 4:0 0am LONG-TERM LAB WORK December 22, 2024 5: 00am [...] 2025 6: 24pm Chief Complaint Admit Date LONG-TERM LAB WORK November 24, 2024 5:0 0am LONG-TERM LAB WORK December 16, 2024 4:0 0am LONG-TERM LAB WORK December 22, 2024 5: 00am [...] 03, 2025 3:23pm Chief Complaint Admit Date LONG-TERM LAB WORK November 24, 2024 5:0 0am LONG-TERM LAB WORK December 16, 2024 4:0 0am LONG-TERM LAB WORK December 22, 2024 5: 00am [...] LAB WORK February 22, 2025 4: 00am LONG-TERM LAB WORK February 25, 2025 5:00am LABWORK [...] 22, 2025 9:47am Chief Complaint Admit Date LONG-TERM LAB WORK November 24, 2024 5:0 0am LONG-TERM LAB WORK December 16, 2024 4:0 0am LONG-TERM LAB WORK December 22, 2024 5: 00am [...] LAB WORK February 22, 2025 4: 00am LONG-TERM LAB WORK February 25, 2025 5:00am LABWORK [...] 22, 2025 12:14pm Chief Complaint Admit Date LONG-TERM LAB WORK December 16, 2024 4:0 0am LONG-TERM LAB WORK December 22, 2024 5: 00am [...] LAB WORK February 22, 2025 4: 00am LONG-TERM LAB WORK February 25, 2025 5:00am LABWORK February 26, 2025 5: 00am lethargic February 27, 2025 6: 24pm LABWORKJ March 03, 2025 5: 00am Post Angiogram 2-4 WK FU March 03 3:23pm FOLLOW UP PVD March 16, 2025 12:51pm S/P WCH 02/22March 22, 2025 9:47am overdue PPM f/u March 22, 2025 12:14pm Chief Complaint Admit Date LONG-TERM LAB WORK December 16, 2024 4:0 0am LONG-TERM LAB WORK December 22, 2024 5: 00am [...] LAB WORK February 22, 2025 4: 00am LONG-TERM LAB WORK February 25, 2025 5:00am LABWORK February 26, 2025 5: 00am lethargic February 27, 2025 6: 24pm LABWORKJ March 03, 2025 5: 00am Post Angiogram 2-4 WK FU March 03 3:23pm LONG-TERM LAB WORK March 16 4:00am FOLLOW UP [...] Diagnoses Driving safety issue Procedures CONSULT TO TUBE WASHER OCCUPATIONAL THERAPY EVAL HIGH COMPLEX 60 MINS Jojo Kaur MD [address] [place] [address] [facility] [address] [address] Referral ID Status Reason Start Date Expiration Date Visits Requested Visits Authorized [id number] Authorized PCP Requested Referral Auto-Generate d Referral 09/07/2022 09/07/2023 99 99 Specialty Diagnoses / Procedures Referred By Linn carrillo Referred To Contact [facility] Diagnoses Polyneuropathy Procedures CONSULT TO PHYSICAL THERAPY PHYSICAL THERAPY EVALUATION HIGH COMPLEX 45 MINS Jojo Kaur MD [address] [place] [address] [facility] [address] [address] Referral ID Status Reason Start Date Expiration Date Visits Requested Visits Authorized [id number] Authorized PCP Requested Referral Auto-Generate d Referral 04/17/2022 04/17/2023 99 99 Specialty Diagnoses / Procedures Referred By Linn t Referred To Contact Psychology Diagnoses Generalized anxiety disorder Procedures CONSULT TO PSYCHOLOGY OFFICE/OUTPATIENT [facility] 60-74 MINUTES Jojo Kaur MD [address] [place] [address] Referral ID Status Reason Start Date Expiration Date Visits Requested Visits Authorized [id number] Pending Review PCP Requested Referral 04/17/2022 04/17/2023 1 1 Specialty Diagnoses / Procedures Referred By Linn carrillo Referred To Contact Podiatry Diagnoses Type 2 diabetes mellitus with diabetic neuropathy, with long-term current use of insulin (HCC) Procedures CONSULT TO PODIATRY OFFICE/OUTPATIENT [facility] 60-74 MINUTES PodlogRoselia hernandez APRN.[facility] [address] [place] [id number] Referral ID Status Reason Start Date Expiration Date Visits Requested Visits Authorized [id number] Authorized PCP Requested Referral 01/12/2022 01/11/2023 1 1 Specialty Diagnoses / Procedures Referred By Linn carrillo Referred To Contact [facility] Diagnoses Altered mental status, unspecified altered mental status type Procedures CONSULT TO SPEECH THERAPY OFFICE/OUTPATIENT [facility] 60-74 MINUTES Jojo Kaur MD [address] [place] [address] [facility] [address] [address] Referral ID Status Reason Start Date Expiration Date Visits Requested Visits Authorized [id number] Authorized Auto-Generat ed Referral 01/05/2022 01/05/2023 99 99 Specialty Diagnoses / Procedures Referred By Linn carrillo Referred To Contact [facility] Diagnoses Abnormality of gait due to impairment of balance Procedures CONSULT TO PHYSICAL THERAPY PHYSICAL THERAPY EVALUATION HIGH COMPLEX 45 MINS Jojo Kaur MD [address] [place] [address] [facility] [place] [address] [place] [address] Referral ID Status Reason Start Date Expiration Date Visits Requested Visits Authorized [id number] Authorized PCP Requested Referral Auto-Generate d Referral 01/05/2022 01/05/2023 99 99 Specialty Diagnoses / Procedures Referred By Contac t Referred To Contact [facility] Diagnoses Altered mental status, unspecified altered mental status type Procedures EPIL EEG ROUTINE ELECTROENCEPHALOGRAM REC COMA/SLEEP ONLY Jojo Kaur MD [address] [place] [address] [facility] [place] [address] [place] [address] Referral ID Status Reason Start Date Expiration Date Visits Requested Visits Authorized [id number] Authorized Auto-Generat ed Referral 01/05/2022 01/05/2023 1 1 Specialty Diagnoses / Procedures Referred By Contac t Referred To Contact Neurology Diagnoses Altered mental status, unspecified altered mental status type Procedures CONSULT TO NEUROLOGY OFFICE/OUTPATIENT [facility] 60-74 MINUTES Abdulaziz Caldera MD [address] [place] [address] Referral ID Status Reason Start Date Expiration Date Visits Requested Visits Authorized [id number] Authorized PCP Requested Referral 01/01/2022 01/01/2023 1 1 Summary Purpose Additional Source Comments Source Comments (unrecognize d section and content) In the event this informatio n is protected by the Federal Confidentiality of Alcohol and Drug Abuse Patient Records regulations: The Federal rules restrict any use of the information to criminally investigate or prosecute any alcohol or drug abuse patient.[facility] the event this information is protected by the Federal Confidentiality of Alcohol and Drug Abuse Patient Records regulations: The Federal rules restrict any use of the information to criminally investigate or prosecute any alcohol or drug abuse patient.[facility] CenterIn the event this information is protected by the Federal Confidentiality of Alcohol and Drug Abuse Patient Records regulations: The Federal rules restrict any use of the information to criminally investigate or prosecute any alcohol or drug abuse patient.[facility] CenterIn the event this information is protected by the Federal Confidentiality of Alcohol and Drug Abuse Patient Records regulations: The Federal rules restrict any use of the information to criminally investigate or prosecute any alcohol or drug abuse patient.[facility] CenterIn the event this information is protected by the Federal Confidentiality of Alcohol and Drug Abuse Patient Records regulations: The Federal rules restrict any use of the information to criminally investigate or prosecute any alcohol or drug abuse patient.[facility] CenterIn the event this information is protected by the Federal Confidentiality of Alcohol and Drug Abuse Patient Records regulations: The Federal rules restrict any use of the information to criminally investigate or prosecute any alcohol or drug abuse patient.[facility] CenterIn the event this information is protected by the Federal Confidentiality of Alcohol and Drug Abuse Patient Records regulations: The Federal rules restrict any use of the information to criminally investigate or prosecute any alcohol or drug abuse patient.[facility] CenterIn the event this information is protected by the Federal Confidentiality of Alcohol and Drug Abuse Patient Records regulations: The Federal rules restrict any use of the information to criminally investigate or prosecute any alcohol or drug abuse patient.[facility] CenterIn the event this information is protected by the Federal Confidentiality of Alcohol and Drug Abuse Patient Records regulations: The Federal rules restrict any use of the information to criminally investigate or prosecute any alcohol or drug abuse patient.[facility] CenterIn the event this information is protected by the Federal Confidentiality of Alcohol and Drug Abuse Patient Records regulations: The Federal rules restrict any use of the information to criminally investigate or prosecute any alcohol or drug abuse patient.[facility] CenterIn the event this information is protected by the Federal Confidentiality of Alcohol and Drug Abuse Patient Records regulations: The Federal rules restrict any use of the information to criminally investigate or prosecute any alcohol or drug abuse patient.[facility] CenterIn the event this information is protected by the Federal Confidentiality of Alcohol and Drug Abuse Patient Records regulations: The Federal rules restrict any use of the information to criminally investigate or prosecute any alcohol or drug abuse patient.[facility] CenterIn the event this information is protected by the Federal Confidentiality of Alcohol and Drug Abuse Patient Records regulations: The Federal rules restrict any use of the information to criminally investigate or prosecute any alcohol or drug abuse patient.[facility] CenterIn the event this information is protected by the Federal Confidentiality of Alcohol and Drug Abuse Patient Records regulations: The Federal rules restrict any use of the information to criminally investigate or prosecute any alcohol or drug abuse patient.[facility] CenterIn the event this information is protected by the Federal Confidentiality of Alcohol and Drug Abuse Patient Records regulations: The Federal rules restrict any use of the information to criminally investigate or prosecute any alcohol or drug abuse patient.[facility] CenterIn the event this information is protected by the Federal Confidentiality of Alcohol and Drug Abuse Patient Records regulations: The Federal rules restrict any use of the information to criminally investigate or prosecute any alcohol or drug abuse patient.[facility] CenterIn the event this information is protected by the Federal Confidentiality of Alcohol and Drug Abuse Patient Records regulations: The Federal rules restrict any use of the information to criminally investigate or prosecute any alcohol or drug abuse patient.[facility] CenterIn the event this information is protected by the Federal Confidentiality of Alcohol and Drug Abuse Patient Records regulations: The Federal rules restrict any use of the information to criminally investigate or prosecute any alcohol or drug abuse patient.[facility] CenterIn the event this information is protected by the Federal Confidentiality of Alcohol and Drug Abuse Patient Records regulations: The Federal rules restrict any use of the information to criminally investigate or prosecute any alcohol or drug abuse patient.[facility] CenterIn the event this information is protected by the Federal Confidentiality of Alcohol and Drug Abuse Patient Records regulations: The Federal rules restrict any use of the information to criminally investigate or prosecute any alcohol or drug abuse patient.[facility] CenterIn the event this information is protected by the Federal Confidentiality of Alcohol and Drug Abuse Patient Records regulations: The Federal rules restrict any use of the information to criminally investigate or prosecute any alcohol or drug abuse patient.[facility] CenterIn the event this information is protected by the Federal Confidentiality of Alcohol and Drug Abuse Patient Records regulations: The Federal rules restrict any use of the information to criminally investigate or prosecute any alcohol or drug abuse patient.[facility] CenterIn the event this information is protected by the Federal Confidentiality of Alcohol and Drug Abuse Patient Records regulations: The Federal rules restrict any use of the information to criminally investigate or prosecute any alcohol or drug abuse patient.[facility] CenterIn the event this information is protected by the Federal Confidentiality of Alcohol and Drug Abuse Patient Records regulations: The Federal rules restrict any use of the information to criminally investigate or prosecute any alcohol or drug abuse patient.[facility] CenterIn the event this information is protected by the Federal Confidentiality of Alcohol and Drug Abuse Patient Records regulations: The Federal rules restrict any use of the information to criminally investigate or prosecute any alcohol or drug abuse patient.[facility] CenterIn the event this information is protected by the Federal Confidentiality of Alcohol and Drug Abuse Patient Records regulations: The Federal rules restrict any use of the information to criminally investigate or prosecute any alcohol or drug abuse patient.[facility] CenterIn the event this information is protected by the Federal Confidentiality of Alcohol and Drug Abuse Patient Records regulations: The Federal rules restrict any use of the information to criminally investigate or prosecute any alcohol or drug abuse patient.[facility] CenterIn the event this information is protected by the Federal Confidentiality of Alcohol and Drug Abuse Patient Records regulations: The Federal rules restrict any use of the information to criminally investigate or prosecute any alcohol or drug abuse patient.[facility] CenterIn the event this information is protected by the Federal Confidentiality of Alcohol and Drug Abuse Patient Records regulations: The Federal rules restrict any use of the information to criminally investigate or prosecute any alcohol or drug abuse patient.[facility] CenterIn the event this information is protected by the Federal Confidentiality of Alcohol and Drug Abuse Patient Records regulations: The Federal rules restrict any use of the information to criminally investigate or prosecute any alcohol or drug abuse patient.[facility] CenterIn the event this information is protected by the Federal Confidentiality of Alcohol and Drug Abuse Patient Records regulations: The Federal rules restrict any use of the information to criminally investigate or prosecute any alcohol or drug abuse patient.[facility] CenterIn the event this information is protected by the Federal Confidentiality of Alcohol and Drug Abuse Patient Records regulations: The Federal rules restrict any use of the information to criminally investigate or prosecute any alcohol or drug abuse patient.[facility] CenterIn the event this information is protected by the Federal Confidentiality of Alcohol and Drug Abuse Patient Records regulations: The Federal rules restrict any use of the information to criminally investigate or prosecute any alcohol or drug abuse patient.[facility] CenterIn the event this information is protected by the Federal Confidentiality of Alcohol and Drug Abuse Patient Records regulations: The Federal rules restrict any use of the information to criminally investigate or prosecute any alcohol or drug abuse patient.[facility] CenterIn the event this information is protected by the Federal Confidentiality of Alcohol and Drug Abuse Patient Records regulations: The Federal rules restrict any use of the information to criminally investigate or prosecute any alcohol or drug abuse patient.[facility] CenterIn the event this information is protected by the Federal Confidentiality of Alcohol and Drug Abuse Patient Records regulations: The Federal rules restrict any use of the information to criminally investigate or prosecute any alcohol or drug abuse patient.[facility] CenterIn the event this information is protected by the Federal Confidentiality of Alcohol and Drug Abuse Patient Records regulations: The Federal rules restrict any use of the information to criminally investigate or prosecute any alcohol or drug abuse patient.[facility] CenterIn the event this information is protected by the Federal Confidentiality of Alcohol and Drug Abuse Patient Records regulations: The Federal rules restrict any use of the information to criminally investigate or prosecute any alcohol or drug abuse patient.[facility] CenterIn the event this information is protected by the Federal Confidentiality of Alcohol and Drug Abuse Patient Records regulations: The Federal rules restrict any use of the information to criminally investigate or prosecute any alcohol or drug abuse patient.[facility] CenterIn the event this information is protected by the Federal Confidentiality of Alcohol and Drug Abuse Patient Records regulations: The Federal rules restrict any use of the information to criminally investigate or prosecute any alcohol or drug abuse patient.[facility] CenterIn the event this information is protected by the Federal Confidentiality of Alcohol and Drug Abuse Patient Records regulations: The Federal rules restrict any use of the information to criminally investigate or prosecute any alcohol or drug abuse patient.[facility] CenterIn the event this information is protected by the Federal Confidentiality of Alcohol and Drug Abuse Patient Records regulations: The Federal rules restrict any use of the information to criminally investigate or prosecute any alcohol or drug abuse patient.[facility] CenterIn the event this information is protected by the Federal Confidentiality of Alcohol and Drug Abuse Patient Records regulations: The Federal rules restrict any use of the information to criminally investigate or prosecute any alcohol or drug abuse patient.[facility] CenterIn the event this information is protected by the Federal Confidentiality of Alcohol and Drug Abuse Patient Records regulations: The Federal rules restrict any use of the information to criminally investigate or prosecute any alcohol or drug abuse patient.[facility] CenterIn the event this information is protected by the Federal Confidentiality of Alcohol and Drug Abuse Patient Records regulations: The Federal rules restrict any use of the information to criminally investigate or prosecute any alcohol or drug abuse patient.[facility] CenterIn the event this information is protected by the Federal Confidentiality of Alcohol and Drug Abuse Patient Records regulations: The Federal rules restrict any use of the information to criminally investigate or prosecute any alcohol or drug abuse patient.[facility] CenterIn the event this information is protected by the Federal Confidentiality of Alcohol and Drug Abuse Patient Records regulations: The Federal rules restrict any use of the information to criminally investigate or prosecute any alcohol or drug abuse patient.[facility] CenterIn the event this information is protected by the Federal Confidentiality of Alcohol and Drug Abuse Patient Records regulations: The Federal rules restrict any use of the information to criminally investigate or prosecute any alcohol or drug abuse patient.[facility] CenterIn the event this information is protected by the Federal Confidentiality of Alcohol and Drug Abuse Patient Records regulations: The Federal rules restrict any use of the information to criminally investigate or prosecute any alcohol or drug abuse patient.[facility] CenterIn the event this information is protected by the Federal Confidentiality of Alcohol and Drug Abuse Patient Records regulations: The Federal rules restrict any use of the information to criminally investigate or prosecute any alcohol or drug abuse patient.[facility] CenterIn the event this information is protected by the Federal Confidentiality of Alcohol and Drug Abuse Patient Records regulations: The Federal rules restrict any use of the information to criminally investigate or prosecute any alcohol or drug abuse patient.[facility] CenterIn the event this information is protected by the Federal Confidentiality of Alcohol and Drug Abuse Patient Records regulations: The Federal rules restrict any use of the information to criminally investigate or prosecute any alcohol or drug abuse patient.[facility] CenterIn the event this information is protected by the Federal Confidentiality of Alcohol and Drug Abuse Patient Records regulations: The Federal rules restrict any use of the information to criminally investigate or prosecute any alcohol or drug abuse patient.[facility] CenterIn the event this information is protected by the Federal Confidentiality of Alcohol and Drug Abuse Patient Records regulations: The Federal rules restrict any use of the information to criminally investigate or prosecute any alcohol or drug abuse patient.[facility] CenterIn the event this information is protected by the Federal Confidentiality of Alcohol and Drug Abuse Patient Records regulations: The Federal rules restrict any use of the information to criminally investigate or prosecute any alcohol or drug abuse patient.[facility] CenterIn the event this information is protected by the Federal Confidentiality of Alcohol and Drug Abuse Patient Records regulations: The Federal rules restrict any use of the information to criminally investigate or prosecute any alcohol or drug abuse patient.[facility] CenterIn the event this information is protected by the Federal Confidentiality of Alcohol and Drug Abuse Patient Records regulations: The Federal rules restrict any use of the information to criminally investigate or prosecute any alcohol or drug abuse patient.[facility] CenterIn the event this information is protected by the Federal Confidentiality of Alcohol and Drug Abuse Patient Records regulations: The Federal rules restrict any use of the information to criminally investigate or prosecute any alcohol or drug abuse patient.[facility] CenterIn the event this information is protected by the Federal Confidentiality of Alcohol and Drug Abuse Patient Records regulations: The Federal rules restrict any use of the information to criminally investigate or prosecute any alcohol or drug abuse patient.[facility] CenterIn the event this information is protected by the Federal Confidentiality of Alcohol and Drug Abuse Patient Records regulations: The Federal rules restrict any use of the information to criminally investigate or prosecute any alcohol or drug abuse patient.[facility] CenterIn the event this information is protected by the Federal Confidentiality of Alcohol and Drug Abuse Patient Records regulations: The Federal rules restrict any use of the information to criminally investigate or prosecute any alcohol or drug abuse patient.[facility] CenterIn the event this information is protected by the Federal Confidentiality of Alcohol and Drug Abuse Patient Records regulations: The Federal rules restrict any use of the information to criminally investigate or prosecute any alcohol or drug abuse patient.[facility] CenterIn the event this information is protected by the Federal Confidentiality of Alcohol and Drug Abuse Patient Records regulations: The Federal rules restrict any use of the information to criminally investigate or prosecute any alcohol or drug abuse patient.[facility] CenterIn the event this information is protected by the Federal Confidentiality of Alcohol and Drug Abuse Patient Records regulations: The Federal rules restrict any use of the information to criminally investigate or prosecute any alcohol or drug abuse patient.[facility] CenterIn the event this information is protected by the Federal Confidentiality of Alcohol and Drug Abuse Patient Records regulations: The Federal rules restrict any use of the information to criminally investigate or prosecute any alcohol or drug abuse patient.[facility] CenterIn the event this information is protected by the Federal Confidentiality of Alcohol and Drug Abuse Patient Records regulations: The Federal rules restrict any use of the information to criminally investigate or prosecute any alcohol or drug abuse patient.[facility] CenterIn the event this information is protected by the Federal Confidentiality of Alcohol and Drug Abuse Patient Records regulations: The Federal rules restrict any use of the information to criminally investigate or prosecute any alcohol or drug abuse patient.[facility] CenterIn the event this information is protected by the Federal Confidentiality of Alcohol and Drug Abuse Patient Records regulations: The Federal rules restrict any use of the information to criminally investigate or prosecute any alcohol or drug abuse patient.[facility] CenterIn the event this information is protected by the Federal Confidentiality of Alcohol and Drug Abuse Patient Records regulations: The Federal rules restrict any use of the information to criminally investigate or prosecute any alcohol or drug abuse patient.[facility] CenterIn the event this information is protected by the Federal Confidentiality of Alcohol and Drug Abuse Patient Records regulations: The Federal rules restrict any use of the information to criminally investigate or prosecute any alcohol or drug abuse patient.[facility] CenterIn the event this information is protected by the Federal Confidentiality of Alcohol and Drug Abuse Patient Records regulations: The Federal rules restrict any use of the information to criminally investigate or prosecute any alcohol or drug abuse patient.[facility] CenterIn the event this information is protected by the Federal Confidentiality of Alcohol and Drug Abuse Patient Records regulations: The Federal rules restrict any use of the information to criminally investigate or prosecute any alcohol or drug abuse patient.[facility] CenterIn the event this information is protected by the Federal Confidentiality of Alcohol and Drug Abuse Patient Records regulations: The Federal rules restrict any use of the information to criminally investigate or prosecute any alcohol or drug abuse patient.[facility] CenterIn the event this information is protected by the Federal Confidentiality of Alcohol and Drug Abuse Patient Records regulations: The Federal rules restrict any use of the information to criminally investigate or prosecute any alcohol or drug abuse patient.[facility] CenterIn the event this information is protected by the Federal Confidentiality of Alcohol and Drug Abuse Patient Records regulations: The Federal rules restrict any use of the information to criminally investigate or prosecute any alcohol or drug abuse patient.[facility] CenterIn the event this information is protected by the Federal Confidentiality of Alcohol and Drug Abuse Patient Records regulations: The Federal rules restrict any use of the information to criminally investigate or prosecute any alcohol or drug abuse patient.[facility] CenterIn the event this information is protected by the Federal Confidentiality of Alcohol and Drug Abuse Patient Records regulations: The Federal rules restrict any use of the information to criminally investigate or prosecute any alcohol or drug abuse patient.[facility] CenterIn the event this information is protected by the Federal Confidentiality of Alcohol and Drug Abuse Patient Records regulations: The Federal rules restrict any use of the information to criminally investigate or prosecute any alcohol or drug abuse patient.[facility] CenterIn the event this information is protected by the Federal Confidentiality of Alcohol and Drug Abuse Patient Records regulations: The Federal rules restrict any use of the information to criminally investigate or prosecute any alcohol or drug abuse patient.[facility] Reason for Visit (unrecogniz ed section and content) Reason Comments PT Discharge Specialty Diagnoses / Procedures Referred By Linn t Referred To Contact [facility] Diagnoses Abnormality of gait due to impairment of balance Procedures CONSULT TO PHYSICAL THERAPY PHYSICAL THERAPY EVALUATION HIGH COMPLEX 45 MINS Jojo Kaur MD [address] [place] [address] [facility] [place] [address] [place] [address] Referral ID Status Reason Start Date Expiration Date Visits Requested Visits Authorized [id number] Authorized PCP Requested Referral Auto-Generate d Referral [...] 6 mo Reason Comments Hospital Follow Up [facility] discharged Reason Comments Results Reason Comments Consult altered mental statu s Specialty Diagnoses / Procedures Referred By Contac t Referred To Contact Neurology Diagnoses Altered mental status, unspecified altered mental status type Procedures CONSULT TO NEUROLOGY OFFICE/OUTPATIENT NEW [facility] MDM 60-74 MINUTES Abdulaziz Caldera MD [address] [place] [address] Referral ID Status Reason Start Date Expiration Date V isits Requested Visits Authorized [id number] Closed PCP Requested Referral 01/01/2022 01/01/2023 1 [...] Nursing Plan of Care Update Reason Comments [facility] PT POC Reason Comments OT plan of care Reason Onset Date Comments Refill Request 07/25/2022 Reason Comments Home Health-Nursing Update Reason Onset Date Comments Anticoagulation 07/31/2022 Specialty Diagnoses / Procedures Referred By Linn carrillo Referred To Contact Ent - Otolaryngology Diagnoses Chronic frontal sinusitis Procedures CONSULT TO ENT OFFICE/OUTPATIENT NEW HIGH MDM 60-74 MINUTES Abdulaziz Caldera MD [address] [place] [address] Referral ID Status Reason Start Date Expiration Date V isits Requested Visits Authorized [id number] Closed PCP Requested Referral 07/12/2022 07/12/2023 1 [...] Care Teams (unrecognized sec tion and content) Pack Changer Relationship Specialty Start Date End Date Abdulaziz Caldera MD [address] [place], [place] [id number] PCP - General Family Practice 11/23/20 Pack Changer Relationship Specialty Start Date End Date Abdulaziz Caldera MD [address] [place], [place] [id number] PCP - General Family Practice 11/23/20 Pack Changer Relationship Specialty Start Date End Date Abdulaziz Caldera MD [address] [facility] [place] [address] PCP - General Family Practice 11/23/20 Pack Changer Relationship Specialty Start Date End Date Abdulaziz Caldera MD [address] [facility] [place] [address] PCP - General Family Practice 11/23/20 Pack Changer Relationship Specialty Start Date End Date Abdulaziz Caldera MD [facility] [place] [address] PCP - General Family Practice 11/23/20 Pack Changer Relationship Specialty Start Date End Date Abdulaziz Caldera MD [facility] [place] [address] PCP - General Family Practice 11/23/20 Pack Changer Relationship Specialty Start Date End Date Abdulaziz Caldera MD [facility] [place] [address] PCP - General Family Practice 11/23/20 Pack Changer Relationship Specialty Start Date End Date Abdulaziz Caldera MD [facility] [place] [address] PCP - General Family Practice 11/23/20 Pack Changer Relationship Specialty Start Date End Date Abdulaziz Caldera MD [facility] [place] [address] PCP - General Family Practice 11/23/20 Pack Changer Relationship Specialty Start Date End Date Abdulaziz Caldera MD [facility] [place] [address] PCP - General Family Practice 11/23/20 Pack Changer Relationship Specialty Start Date End Date Abdulaziz Caldera MD [facility] [place] [address] PCP - General Family Practice 11/23/20 Pack Changer Relationship Specialty Start Date End Date Abdulaziz Caldera MD [address] [facility] [place] [address] PCP - General Family Practice 11/23/20 Pack Changer Relationship Specialty Start Date End Date Abdulaziz Caldera MD [address] [facility] [place] [address] PCP - General Family Practice 11/23/20 Pack Changer Relationship Specialty Start Date End Date Abdulaziz Caldera MD [address] [facility] [place] [address] PCP - General Family Practice 11/23/20 Pack Changer Relationship Specialty Start Date End Date Abdulaziz Caldera MD [address] [facility] [place] [address] PCP - General Family Practice 11/23/20 Pack Changer Relationship Specialty Start Date End Date Abdulaizz Caldera MD [address] [facility] [place] [address] PCP - General Family Practice 11/23/20 Pack Changer Relationship Specialty Start Date End Date Abdulaziz Cadlera MD [address] [facility] [place] [address] PCP - General Family Practice 11/23/20 Pack Changer Relationship Specialty Start Date End Date Abdulaziz Caldera MD [address] [facility] [place] [address] PCP - General Family Practice 11/23/20 Pack Changer Relationship Specialty Start Date End Date Abdulaziz Caldera MD [address] [facility] [place] [address] PCP - General Family Practice 11/23/20 Pack Changer Relationship Specialty Start Date End Date Abdulaziz Caldera MD [address] [facility] [place] [address] PCP - General Family Practice 11/23/20 Pack Changer Relationship Specialty Start Date End Date Abdulaziz Caldera MD [address] [facility] [place] [address] PCP - General Family Practice 11/23/20 Pack Changer Relationship Specialty Start Date End Date Abdulaziz Caldera MD [address] [facility] [place] [address] PCP - General Family Practice 11/23/20 Pack Changer Relationship Specialty Start Date End Date Abdulaziz Caldera MD [address] [place] [address], [place] [address] PCP - General Family Medicine 11/23/20 Pack Changer Relationship Specialty Start Date End Date Abdulaziz Caldera MD [facility] [place] [address] PCP - General Family Medicine 11/23/20 Pack Changer Relationship Specialty Start Date End Date Abdulaziz Caldera MD [address] [facility] [place] [address] PCP - General Family Medicine 11/23/20 Pack Changer Relationship Specialty Start Date End Date Abdulaziz Caldera MD [address] [facility] [place] [address] PCP - General Family Medicine 11/23/20 Pack Changer Relationship Specialty Start Date End Date Abdulaziz Caldera MD [address] [facility] [place] [address] PCP - General Family Medicine 11/23/20 Pack Changer Relationship Specialty Start Date End Date Abdulaziz Caldera MD [address] [facility] [place] [address] PCP - General Family Medicine 11/23/20 Pack Changer Relationship Specialty Start Date End Date Abdulaziz Caldera MD [address] [facility] [place] [address] PCP - General Family Medicine 11/23/20 Pack Changer Relationship Specialty Start Date End Date Abdulaziz Caldera MD [address] [facility] [place] [address] PCP - General Family Medicine 11/23/20 Pack Changer Relationship Specialty Start Date End Date Abdulaziz Caldera MD [address] [facility] [place] [address] PCP - General Family Medicine 11/23/20 Pack Changer Relationship Specialty Start Date End Date Abdulaziz Caldera MD [address] [facility] [place] [address] PCP - General Family Medicine 11/23/20 Pack Changer Relationship Specialty Start Date End Date Abdulaziz Caldera MD [address] [facility] [place] [address] PCP - General Family Medicine 11/23/20 Pack Changer Relationship Specialty Start Date End Date Abdulaziz Caldera MD [address] [facility] [place] [address] PCP - General Family Medicine 11/23/20 Pack Changer Relationship Specialty Start Date End Date Abdulaziz Caldera MD [address] [facility] [place] [address] PCP - General Family Medicine 11/23/20 Pack Changer Relationship Specialty Start Date End Date Abdulaziz Caldera MD [address] [facility] [place] [address] PCP - General Family Medicine 11/23/20 Pack Changer Relationship Specialty Start Date End Date Abdulaziz Caldera MD [address] [facility] [place] [address] PCP - General Family Medicine 11/23/20 Pack Changer Relationship Specialty Start Date End Date Abdulaziz Caldera MD [address] [place] [address] PCP - General Family Medicine 11/23/20 Pack Changer Relationship Specialty Start Date End Date Abdulaziz Caldera MD [address] [place] [address] PCP - General Family Medicine 11/23/20 Pack Changer Relationship Specialty Start Date End Date Abdulaziz Caldera MD [address] [place] [address] PCP - General Family Medicine 11/23/20 Pack Changer Relationship Specialty Start Date End Date Abdulaziz Caldera MD [address] [place] [address] PCP - General Family Medicine 11/23/20 Team Status: Active Member Role Status Dates Dr. Chidi Christian III, MD Family Provider Active Dr. Luis Caldera MD Primary Care Provider Acti ve Team Status: Active Member Role Status Dates Dr. Maggy oRberts MD Emergency Provider Active Dr. Luis Caldera [...] MD Admit Provider, Attending Provi skip Active Pack Changer Relationship Specialty Start Date End Date Abdulaziz Caldera MD [address] [place] [address] PCP - General Family Medicine 11/23/20 Team [...] MD Admit Provider, Attending Prov ider Active Pack Changer Relationship Specialty Start Date End Date Abdulaziz Caldera MD [address] [place] [address] PCP - General Family Medicine 11/23/20 Team [...] Provider, Ref erring Provider Active Ann Rodríguez DECORATING MACHINE TENDER, DECORATING MACHINE TENDER-C Attending Provider Active Team Status: Active Member [...] Provider Acti ve Walterbreonna MAYORGA MD Attending Provider, Referring Pro vider [...] 2025 End: February 11, 2025 Kuldip Cosby DECORATING MACHINE TENDER-C Primary Care Provider Active Start: February 02, 2025 End: February 11, 2025 Dr. Karen Aly MD Admit Provider Active St art: February 02, 2025 End: February 11, 2025 Dr. Karen Aly MD Other Provider Active St art: February 02, 2025 End: February 11, 2025 Dr. Kee eMjia DPM Other Provider Active Start: February 02, [...] Active Start: February 03, 2025 Kuldip Cosby DECORATING MACHINE TENDER-C Primary Care Provider Active Start: February 03, [...] Member Role/Relationship Status Dates Kuldip Cosby , DECORATING MACHINE TENDER-C Primary Care Provider Active Start: February 03, 2025 Dr. Aneesh Ac MD Attending Provider Active S tart: February 03, 2025 Team Status: Active Member Role/Relationship Status Dates Dr. Nicholas Galarza DO Emergency Provider Active Start: February 04, 2025 Kuldip Cosby DECORATING MACHINE TENDER-C Primary Care Provider Active Start: February 04, [...] Start: February 04, 2025 Kuldip Cosby , DECORATING MACHINE TENDER-C Primary Care Provider Active Start: February 04, [...] Start: February 05, 2025 Kuldip Cosby , DECORATING MACHINE TENDER-C Primary Care Provider Active Start: February 05, [...] Start: February 06, 2025 Kuldip Cosby , DECORATING MACHINE TENDER-C Primary Care Provider Active Start: February 06, [...] Start: February 07, 2025 Kuldip Cosby , DECORATING MACHINE TENDER-C Primary Care Provider Active Start: February 07, [...] Start: February 08, 2025 Kuldip Cosby , DECORATING MACHINE TENDER-C Primary Care Provider Active Start: February 08, [...] Start: February 09, 2025 Kuldip Cosby , DECORATING MACHINE TENDER-C Primary Care Provider Active Start: February 09, [...] Active Start: February 09, 2025 Kuldip Cosby DECORATING MACHINE TENDER-C Primary Care Provider Active Start: February 09, [...] Active Start: February 10, 2025 Kuldip Cosby DECORATING MACHINE TENDER-C Primary Care Provider Active Start: February 10, [...] Active Start: February 10, 2025 Kuldip Cosby DECORATING MACHINE TENDER-C Primary Care Provider Active Start: February 10, [...] Member Role/Relationship Status Dates Kuldip Cosby , DECORATING MACHINE TENDER-C Primary Care Provider Active Start: February 10, [...] Start: February 10, 2025 Kuldip Cosby , DECORATING MACHINE TENDER-C Primary Care Provider Active Start: February 10, [...] Start: February 10, 2025 Kuldip Cosby , DECORATING MACHINE TENDER-C Primary Care Provider Active Start: February 10, [...] Start: February 11, 2025 Kuldip Cosby , DECORATING MACHINE TENDER-C Primary Care Provider Active Start: February 11, 2025 Dr. Karen Aly MD Admit Provider Active St art: February 11, 2025 Dr. Karen Aly MD Other Provider Active St art: February 11, 2025 Dr. Kee Mejia DPM Other Provider Active Start: February 11, 2025 Dr. Hguo Cervantes MD Other Provider Active Start: February 11, 2025 Dr. Aneesh Ac MD Other Provider Active Start : February 11, 2025 Dr. Smith Leija MD Other Provider Active Start: February 11, 2025 DENIA Baird Attending Provider Active Star t: February 11, 2025 Team Status: Active Member Role/Relationship Status Dates Dr. Nicholas Galarza DO Emergency Provider Active Start: February 11, 2025 Kuldip Cosby , DECORATING MACHINE TENDER-C Primary Care Provider Active Start: February 11, [...] Member Role/Relationship Status Dates Kuldip Cosby , DECORATING MACHINE TENDER-C Primary Care Provider Active Start: February 15, 2025 Walter MAYORGA MD Attending Provider Active S tart: February 15, 2025 Team Status: Active Member Role/Relationship Status Dates Kuldip Cosby , DECORATING MACHINE TENDER-C Primary Care Provider Active Start: February 16, 2025 Walter MAYORGA MD Attending Provider Active S tart: February 16, 2025 Team Status: Active Member Role/Relationship Status Dates Kuldip oCsby , DECORATING MACHINE TENDER-C Primary Care Provider Active Start: February 17, 2025 Walter MAYORGA MD Attending Provider Active S tart: February 17, 2025 Team Status: Active Member Role/Relationship Status Dates Kuldip Haigler , DECORATING MACHINE TENDER-C Primary Care Provider Active Start: February 18, 2025 Walter MAYORGA MD Attending Provider Active S tart: February 18, 2025 Team Status: Active Member Role/Relationship Status Dates Kuldip Harjeet , DECORATING MACHINE TENDER-C Primary Care Provider Active Start: February 22, 2025 Walter MAYORGA MD Attending Provider Active S tart: February 22, 2025 Team Status: Active Member Role/Relationship Status Dates Kuldip Haigler , DECORATING MACHINE TENDER-C Primary Care Provider Active Start: February 25, 2025 Walter MAYORGA MD Attending Provider Active S tart: February 25, 2025 Team Status: Active Member Role/Relationship Status Dates Kuldip Harjeet , DECORATING MACHINE TENDER-C Primary Care Provider Active Start: February 26, 2025 Walter MAYORGA MD Attending Provider Active S tart: February 26, 2025 Team Status: Inactive Member Role/Relationship Status Dates Kuldip Croftley , DECORATING MACHINE TENDER-C Primary Care Provider Active Start: February 27, 2025 End: February 28, 2025 Dr. Bennett Troncoso , Emergency Provider Active Start: February 27, 2025 End: February 28, 2025 Team Status: Active Member Role/Relationship Status Dates Dr. Walter Becker Sr., DO Primary Care Provider Active Team Status: Active Member Role/Relationship Status Dates Kuldip Haigler , DECORATING MACHINE TENDER-C Primary Care Provider Active Start: February 03, 2025 Dr. Aneesh Ac MD Attending Provider Active S tart: February 03, 2025 Dr. Kee Mejia DPM Referring Provider Active Start: February 03, 2025 Team Status: Active Member Role/Relationship Status Dates Dr. Nicholas Galarza DO Emergency Provider Active Start: February 04, 2025 Kuldip Cosby , DECORATING MACHINE TENDER-C Primary Care Provider Active Start: February 04, [...] Member Role/Relationship Status Dates Kuldip Cosby , DECORATING MACHINE TENDER-C Primary Care Provider Active Start: March 03, 2025 Walter MAYORGA MD Attending Provider Active S tart: March 03, 2025 Team Status: Inactive Member Role/Relationship Status Dates Kuldip Cosby , DECORATING MACHINE TENDER-C Referring Provider Active Sta rt: March 03, [...] Active Start: February 09, 2025 Kuldip Cosby DECORATING MACHINE TENDER-C Primary Care Provider Active Start: February 09, [...] Start: February 10, 2025 Kuldip Cosby , DECORATING MACHINE TENDER-C Primary Care Provider Active Start: February 10, [...] Active Start: February 11, 2025 Kuldip Cosby DECORATING MACHINE TENDER-C Primary Care Provider Active Start: February 11, [...] Active Member Role/Relationship Status Dates Kuldip Cosby DECORATING MACHINE TENDER-C Primary Care Provider Active Start: February 22, 2025 Walter MAYORGA MD Attending Provider Active S tart: February 22, 2025 Walter MAYORGA MD Referring Provider Active S tart: February 22, 2025 Team Status: Inactive Member Role/Relationship Status Dates Kuldip Cosby DECORATING MACHINE TENDER-C Primary Care Provider Active Start: February 27, [...] 2025 End: March 22, 2025 Deangelo Thomson NP DECORATING MACHINE TENDER-C Attending Provider Active S tart: March 22, [...] 2025 Debi Wetzel Attending Provider Active Start: Dane johnsonjanessa 2024 End: March 22, 2025 Team Status: [...] Member Role/Relationship Status Dates Dr. Nicholas Galarza , Emergency Provider Active Start: February 02, 2025 End: February 11, 2025 Kuldip Cosby , DECORATING MACHINE TENDER-C Primary Care Provider Active Start: February 02, [...] Start: February 03, 2025 Kuldip Cosby , DECORATING MACHINE TENDER-C Primary Care Provider Active Start: February 03, [...] Member Role/Relationship Status Dates Kuldip Cosby , DECORATING MACHINE TENDER-C Primary Care Provider Active Start: February 03, 2025 Dr. Aneesh Ac MD Attending Provider Active S tart: February 03, 2025 Dr. Kee Mejia DPM Referring Provider Active Start: February 03, 2025 Team Status: Active Member Role/Relationship Status Dates Dr. Nicholas Galarza DO Emergency Provider Active Start: February 04, 2025 Kuldip Cosby , DECORATING MACHINE TENDER-C Primary Care Provider Active Start: February 04, [...] Active Start: February 04, 2025 Kuldip Cosby NP-C Primary Care Provider Active Start: February 04, [...] Active Start: February 05, 2025 Kuldip Cosby NP-C Primary Care Provider Active Start: February 05, [...] Active Start: February 06, 2025 Kuldip Cosby DECORATING MACHINE TENDER-C Primary Care Provider Active Start: February 06, 2025 Dr. aKren Aly MD Admit Provider Active St art: [...] Active Start: February 07, 2025 Kuldip Cosby DECORATING MACHINE TENDER-C Primary Care Provider Active Start: February 07, [...] Active Start: February 08, 2025 Kuldip Cosby DECORATING MACHINE TENDER-C Primary Care Provider Active Start: February 08, [...] Start: February 10, 2025 Kuldip Cosby , DECORATING MACHINE TENDER-C Primary Care Provider Active Start: February 10, [...] Active S tart: February 10, 2025 Dr. Aneehs Ac MD Other Provider Active Start : February 10, 2025 Dr. Smith Leija MD Other Provider Active Start: February 10, 2025 Team Status: Active Member Role/Relationship Status Dates Dr. Nicholas Galarza DO Emergency Provider Active Start: February 11, 2025 Kuldip Cosby , DECORATING MACHINE TENDER-C Primary Care Provider Active Start: February 11, [...] Member Role/Relationship Status Dates Kuldip Cosby , DECORATING MACHINE TENDER-C Primary Care Provider Active Start: February 15, 2025 Walter MAYORGA MD Attending Provider Active S tart: February 15, 2025 Team Status: Active Member Role/Relationship Status Dates Kuldip Cosby , DECORATING MACHINE TENDER-C Primary Care Provider Active Start: February 16, 2025 Walter MAYORGA MD Attending Provider Active S tart: February 16, 2025 Team Status: Active Member Role/Relationship Status Dates Kuldip Croftley , DECORATING MACHINE TENDER-C Primary Care Provider Active Start: February 17, 2025 Walter MAYORGA MD Attending Provider Active S tart: February 17, 2025 Team Status: Active Member Role/Relationship Status Dates Kuldip Haigler , DECORATING MACHINE TENDER-C Primary Care Provider Active Start: February 18, 2025 Walter MAYORGA MD Attending Provider Active S tart: February 18, 2025 Team Status: Active Member Role/Relationship Status Dates Kuldip Haigler , DECORATING MACHINE TENDER-C Primary Care Provider Active Start: February 22, 2025 Walter MAYORGA MD Attending Provider Active S tart: February 22, 2025 Walter MAYORGA MD Referring Provider Active S tart: February 22, 2025 Team Status: Active Member Role/Relationship Status Dates Kuldip Harjeet , DECORATING MACHINE TENDER-C Primary Care Provider Active Start: February 25, 2025 Walter MAYORGA MD Attending Provider Active S tart: February 25, 2025 Team Status: Active Member Role/Relationship Status Dates Kuldip Harjeet , DECORATING MACHINE TENDER-C Primary Care Provider Active Start: February 26, 2025 Walter MAYORGA MD Attending Provider Active S tart: February 26, 2025 Team Status: Inactive Member Role/Relationship Status Dates Kuldip Harjeet , DECORATING MACHINE TENDER-C Primary Care Provider Active Start: February 27, 2025 End: February 28, 2025 Dr. Bennett Troncoso , Attending Provider Active Start: February 27, 2025 End: February 28, 2025 Dr. Bennett Troncoso DO Emergency Provider Active Start: February 27, 2025 End: February 28, 2025 Team Status: Active Member Role/Relationship Status Dates Kuldip Harjeet , DECORATING MACHINE TENDER-C Primary Care Provider Active Start: March 03, 2025 Walter MAYORGA MD Attending Provider Active S tart: March 03, 2025 Team Status: Inactive Member Role/Relationship Status Dates Kuldip Harjeet , DECORATING MACHINE TENDER-C Referring Provider Active Sta rt: March 03, [...] End: March 22, 2025 Deangelo Thomson NP, DECORATING MACHINE TENDER-C Attending Provider Active S tart: March 22, [...] 2025 Debi Wetzel Attending Provider Active Start: Dane pina 2024 End: March 22, 2025 Team Status: [...] and content) DATE CREATED AUTHOR 01/02/2022 [facility] DATE CREATED AUTHOR AUTHOR'S ORGANIZ ATION 02/04/[address] [facility] DATE CREATED AUTHOR AUTHOR'S ORGANIZ ATION 04/19/2022 [facility] ([place]) DATE CREATED AUTHOR AUTHOR'S ORGANIZ ATION 11/07/2024 [facility] DATE CREATED AUTHOR AUTHOR'S ORGANIZ ATION 05/26/2025 [facility] FOR RECORDS PERTAINING TO PATIENTS WHO [...] BE BASED ON THE PRIMARY CLINICAL RECORDS. [facility]. provides no warranty or guarantee of the accuracy or completeness of information in this document.
[2025-06-02 10:37] LABS: Vitamin D,25 Hydroxy 66.9 ng/mL (30-100)
== END ==
LOC: OLS.ACH 05:00
PROVIDERS: PCP Internal Medicine; Visit Provider Internal Medicine
DX: F33.1 Major depressive disorder, recurrent, moderate (principal)
CPT/HCPCS: 36415; 82306

== ENCOUNTER → 2025-06-08 | Outpatient (REF) | payer MEDICARE, OTHER, SELFPAY ==
--- OUTSIDE RECORDS SUMMARY | 2025-06-08 03:51 | XMS RPT_ITS | CCD ---
Author Organization [facility] Care Team Providers Care Graphics Manager Name Role Phone Abdulaziz Caldera MD [...] Dr. Luis Caldera Primary Care Provider [phone] Dr. Olga Lidia Rasheed Attending Provider Dr. [...] Provider Dr. Karen Aly Admit Provider Dr. Kraen Aly Attending Provider Jermain, Dr. Karen Juan [...] Attending Provider Dr. Smith Leija Other Provider [phone] Dr. Ryan Tinoco Referring Provider Dr. Júnior [...] Dr. Luis Caldera Primary Care Provider [phone] Dr. Dandy Sauer Emergency Provider Earnest, Dr. [...] Care Provider Dr. Syed Allen Emergency Provider [phone] Dr. Karen Aly Admit Provider Dr. Karen Aly Other Provider Dr. Yisel Rendon Attending Provider Dr. Yisel Rendon Other Provider Dr. Olga Lidia Rasheed Other Provider Dr. Luis Caldera Primary Care Provider Dr. Luis Caldera Referring Provider Debi Wetzel Attending Provider Unavailable Marcos TECHNOLOGY SPECIALIST, TECHNOLOGY SPECIALIST-C Ann Attending Provider Dr. Luis Caldera [...] Nicholas Galarza DO Emergency Provider Harjeet TECHNOLOGY SPECIALIST-CKuldip Primary Care Provider Jermain COLBERT, Dr. Karen Juan Admit Provider Jermain COLBERT, Dr. Karen Juan Attending Provider Verenice COLBERT, Dr. Smith Primary Care Provider Rosita COLBERT, Walter Attending Provider Unavailable Rosita COLBERT, Walter Referring Provider Unavailable Dr. Nicholas Galarza DO Emergency Provider Harjeet TECHNOLOGY SPECIALIST-CKuldip Primary Care Provider Jeramin COLBERT, Dr. Karen Juan Admit Provider Jermain [...] COLBERT, Dr. Hugo Govea Referring Provider Harjeet TECHNOLOGY SPECIALIST-C, Kuldip Referring Provider Deperro Sr. DO, Dr. Watson Primary Care Provider Karyna DUVALL, Dr. Guajardo Attending Provider [phone] Douglas LOZA, Meghana Referring Provider Alix TECHNOLOGY SPECIALIST-Deangelo Anthony Attending Provider Deperro Sr. DO, Dr. Watson Referring Provider Debi Wetzel Attending Provider Unavailable Verenice COLBERT, Dr. Smith Primary Care Provider Rosita COLBERT, Walter Attending Provider Unavailable Deperro OLS, Walter Attending Unavailable Deperro Sr., Walter Primary Care Unavailable Tarrant, Kuldip Primary Care Unavailable Karen Aly Admitting Unavailable Hugo Cervantes Attending Unavailable Kee Mejia Consulting Unavailable Karen Aly Consulting Unavailable Aneesh Ac Consulting Unavailable Smith Leija Consulting Unavailable Kee Merritt Referring Unavailable Kee Merritt Attending Unavailable Verenice, Luis Primary Care Unavailable Tarrant, Kuldip Primary Care Unavailable Deperro OLS, Walter Attending Unavailable Peaceley, Luis Primary Care Unavailable Deperro OLS, Walter Attending Unavailable Deperro OLS, Walter Referring Unavailable Deperro OLS, Walter Attending Unavailable Verenice, Luis Primary Care Unavailable Deperro OLS, Walter Referring Unavailable Deperro OLS, Walter Attending Unavailable Deperro Sr., Walter Primary Care Unavailable Tarrant, Kuldip Primary Care Unavailable Deperro OLS, Walter Attending Unavailable Deperro OLS, Walter Attending Unavailable Deperro Sr., Walter Primary Care Unavailable Bursley, Luis Primary Care Unavailable Deperro OLS, Walter Referring Unavailable Deperro OLS, Walter Attending Unavailable Bursley, Luis Primary Care Unavailable Deperro OLS, Walter Attending Unavailable Tarrant, Kuldip Primary Care Unavailable Deperro OLS, Walter Attending Unavailable Tarrant, Kuldip Primary Care Unavailable Deperro OLS, Walter Referring Unavailable Deperro OLS, Walter Attending Unavailable Tarrant, Kuldip Primary Care Unavailable Deperro OLS, Walter Attending Unavailable Harjeet, Kuldip Primary Care Unavailable Deperro OLS, Walter Attending Unavailable Bursley, Luis Primary Care Unavailable Deperro OLS, Walter Attending Unavailable Deperro OLS, Walter Attending Unavailable Bursley, Luis Primary Care Unavailable Tarrant, Kuldip Primary Care Unavailable Deperro OLS, Walter Attending Unavailable Tarrant, Kuldip Primary Care Unavailable Deperro OLS, Walter Attending Unavailable Deperro OLS, Walter Referring Unavailable Deperro OLS, Walter Attending Unavailable Bursley, Luis Primary Care Unavailable Cole, Meghana Referring Unavailable Douglas, Meghana Attending Unavailable Deperro Sr., Walter Primary Care Unavailable Kee Mejia Consulting Unavailable Karen Aly Admitting Unavailable SonyaonisTundeHugo F Attending Unavailable Tarrant, Kuldip Primary Care Unavailable Karen Aly Consulting [...] Unavailable Harjeet, Kuldip Primary Care Unavailable Roof TECHNOLOGY SPECIALISTDeangelo Attending Unavailable Bursley, Luis Primary Care Unavailable Olga Lidia Rasheed Attending Unavailable Bursley, Luis Referring Unavailable Deperro Sr., Walter Primary Care Unavailable Corazon, Júnior Attending Unavailable Deperro Sr., Walter Primary Care Unavailable Corazon, [place] Attending Unavailable Corazon, [place] Referring Unavailable Tarrant, Kuldip Referring Unavailable Deperro Sr., Walter Primary Care Unavailable Roof TECHNOLOGY SPECIALISTDeangelo Attending Unavailable Harjeet, Kuldip Referring Unavailable Meghana [...] (20 sources) pantoprazole Drug Allergy 09-24-2019 Diarrhea [facility] (20 sources) Propofol Drug Allergy 12-06-2021 Other [facility] Comment on above: GETS AGGRESSIVE (1 source) Propofol Drug Allergy 05-11-2025 [facility] Repository Medications Current Medications Medication [...] Comment on above: Take 1 capsule by [facility] one time a week. clopidogrel 75 mg oral table t (7 sources) P2Y12 Platelet Inhibitor Start: 02-11-2025 docusate sodium 50 mg / sennosides, [facility] 8.6 mg oral tablet (12 sources) Start: 01-26-2023 Start: 01-26-2023 take 2 tablets by [facility] twice daily Sennosides-Docusate Sodium (Stool Softener-Stimulant Laxat) [...] hydrochloride 10 mg oral tablet (20 sources) X-ojlcuw-Q-aspartate Receptor Antagonist Start: 01-26-2023 End: 02-13-2023 Start: [...] Comment on above: Take 1 capsule by [facility] daily at bedtime. 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, [address] Hematocrit (Bld) [Volume fraction] 38.5 % Low 40-54 [facility] Comment on above: Order Comment: 215.2 Performed By: #### L 100.0500 ####[facility] [address] [place], [address] Hemoglobin (Bld) [Mass/Vol] 12.4 g/dL Low 13.0-16. 5 [facility] Comment on above: Order Comment: 215.2 Performed By: #### L 100.0500 ####[facility] [address] [place], [address] MCH (RBC) [Entitic mass] 27.1 pg Normal 27.0-32.0 [facility] Comment on above: Order Comment: 215.2 Performed By: #### L 100.0500 ####[facility] [address] [place], [address] MCHC (RBC) [Mass/Vol] 32.2 g/dL Normal 32-36 [facility] Comment on above: Order Comment: 215.2 Performed By: #### L 100.0500 ####[facility] [address] [place], [address] MCV (RBC) [Entitic vol] 84.2 fL Normal 80-94 [facility] Comment on above: Order Comment: 215.2 Performed By: #### L 100.0500 ####[facility] [address] [place], [address] Platelet mean volume (Bld) [Entitic vol] 9.1 fL Normal 6.2-12.0 [facility] Comment on above: Order Comment: 215.2 Performed By: #### L 100.0500 ####[facility] [address] [place], [address] Platelets (Bld) [#/Vol] 256 10*3/uL Normal 150-450 [facility] Comment on above: Order Comment: 215.2 Performed By: #### L 100.0500 ####[facility] [address] [place], [address] RBC (Bld) [#/Vol] 4.57 10*6/uL Low 4.6-6.2 [facility] Comment on above: Order Comment: 215.2 Performed By: #### L 100.0500 ####[facility] [address] [place], [address] RDW SD 42.9 fl Normal 35.1-43.9 [facility] Comment on above: Order Comment: 215.2 Performed By: #### L 100.0500 ####[facility] [address] [place], [address] WBC (Bld) [#/Vol] 10.8 10*3/uL Normal 4.4-11.0 [facility] Comment on above: Order Comment: 215.2 Performed By: #### L 100.0500 ####[facility] [address] [place], [address] MR/BMS.BVSon 05-11-2025 MR/BMS.BVS Normal [facility] CBC-Complete Blood Cnt No Di ffon 05-03-2025 Erythrocyte distribution width (RBC) [Ratio] 14.1 % Normal 11.6-14.6 [facility] Comment on above: Order Comment: 215.2 Performed By: #### L 100.0500 ####[facility] [address] [place], [address] Hematocrit (Bld) [Volume fraction] 36.7 % Low 40-54 [facility] Comment on above: Order Comment: 215.2 Performed By: #### L 100.0500 ####[facility] [address] [place], [address] Hemoglobin (Bld) [Mass/Vol] 11.7 g/dL Low 13.0-16. 5 [facility] Comment on above: Order Comment: 215.2 Performed By: #### L 100.0500 ####[facility] [address] [place], [address] MCH (RBC) [Entitic mass] 26.9 pg Low 27.0-32.0 [facility] Comment on above: Order Comment: 215.2 Performed By: #### L 100.0500 ####[facility] [address] [place], [address] MCHC (RBC) [Mass/Vol] 31.9 g/dL Low 32-36 [facility] Comment on above: Order Comment: 215.2 Performed By: #### L 100.0500 ####[facility] [address] [place], [address] MCV (RBC) [Entitic vol] 84.4 fL Normal 80-94 [facility] Comment on above: Order Comment: 215.2 Performed By: #### L 100.0500 ####[facility] [address] [place], [address] Platelet mean volume (Bld) [Entitic vol] 9.3 fL Normal 6.2-12.0 [facility] Comment on above: Order Comment: 215.2 Performed By: #### L 100.0500 ####[facility] [address] [place], [address] Platelets (Bld) [#/Vol] 242 10*3/uL Normal 150-450 [facility] Comment on above: Order Comment: 215.2 Performed By: #### L 100.0500 ####[facility] [address] [place], [address] RBC (Bld) [#/Vol] 4.35 10*6/uL Low 4.6-6.2 [facility] Comment on above: Order Comment: 215.2 Performed By: #### L 100.0500 ####[facility] [address] [place], [address] RDW SD 42.6 fl Normal 35.1-43.9 [facility] Comment on above: Order Comment: 215.2 Performed By: #### L 100.0500 ####[facility] [address] [place], [address] WBC (Bld) [#/Vol] 9.6 10*3/uL Normal 4.4-11.0 [facility] Comment on above: Order Comment: 215.2 Performed By: #### L 100.0500 ####[facility] [address] [place], [address] CBC W/Diff, Automatedon 10- Absolute Lymph 2.23 X10 3/uL Normal 0.83-4.51 [facility] Comment on above: Performed By: #### L 100.0100 ####[facility] [address] [place], [address] Absolute Neut 7.1 X10 3/uL Normal 2.0-7.7 [facility] Comment on above: Performed By: #### L 100.0100 ####[facility] [address] [place], [address] Basophils/100 WBC (Bld) 0.6 % Normal 0-1 [facility] Comment on above: Performed By: #### L 100.0100 ####[facility] [address] [place], [address] Eosinophils/100 WBC (Bld) 5.3 % High 0-5 [facility] Comment on above: Performed By: #### L 100.0100 ####[facility] [address] [place], [address] Erythrocyte distribution width (RBC) [Ratio] 14.0 % Normal 11.6-14.6 [facility] Comment on above: Performed By: #### L 100.0100 ####[facility] [address] [place], [address] Hematocrit (Bld) [Volume fraction] 36.7 % Low 40-54 [facility] Comment on above: Performed By: #### L 100.0100 ####[facility] [address] [place], [address] Hemoglobin (Bld) [Mass/Vol] 11.8 g/dL Low 13.0-16. 5 [facility] Comment on above: Performed By: #### L 100.0100 ####[facility] [address] [place], [address] IG% 1.400 High 0.0-0.9 [facility] Comment on above: Result Comment: IG% - Immature Granulocytes (promyelocytes, myelocytes andmetamyelocytes) > 1% indicates that a LEFT SHIFT is Present. Performed By: #### L 100.0100 ####[facility] [address] [place], [address] Lymphocytes/100 WBC (Bld) 20.8 % Normal 19-41 [facility] Comment on above: Performed By: #### L 100.0100 ####[facility] [address] [place], [address] MCH (RBC) [Entitic mass] 26.9 pg Low 27.0-32.0 [facility] Comment on above: Performed By: #### L 100.0100 ####[facility] [address] [place], [address] MCHC (RBC) [Mass/Vol] 32.2 g/dL Normal 32-36 [facility] Comment on above: Performed By: #### L 100.0100 ####[facility] [address] [place], [address] MCV (RBC) [Entitic vol] 83.6 fL Normal 80-94 [facility] Comment on above: Performed By: #### L 100.0100 ####[facility] [address] [place], [address] Monocytes/100 WBC (Bld) 5.4 % Normal 0-[address] [facility] Comment on above: Performed By: #### L 100.0100 ####[facility] [address] [place], [address] Neutrophils/100 WBC (Bld) 66.5 % Normal 47-70 [facility] Comment on above: Performed By: #### L 100.0100 ####[facility] [address] [place], [address] Nucleated RBC (Bld) [#/Vol] 0 10*3/uL Normal 0-5 [facility] Comment on above: Performed By: #### L 100.0100 ####[facility] [address] [place], [address] Platelet mean volume (Bld) [Entitic vol] 9.4 fL Normal 6.2-12.0 [facility] Comment on above: Performed By: #### L 100.0100 ####[facility] [address] [place], [address] Platelets (Bld) [#/Vol] 274 10*3/uL Normal 150-450 [facility] Comment on above: Performed By: #### L 100.0100 ####[facility] [address] [place], [address] RBC (Bld) [#/Vol] 4.39 10*6/uL Low 4.6-6.2 [facility] Comment on above: Performed By: #### L 100.0100 ####[facility] [address] [place], [address] RDW SD 42.5 fl Normal 35.1-43.9 [facility] Comment on above: Performed By: #### L 100.0100 ####[facility] [address] [place], [address] WBC (Bld) [#/Vol] 10.7 10*3/uL Normal 4.4-11.0 [facility] Comment on above: Performed By: #### L 100.0100 ####[facility] [address] [place], [address] Urine Cultureon 05-01-2025 URC Culture exhibits no growth. Normal [facility] Comment on above: Performed By: #### M 100.2200, L400.0001 ####[facility] [address] [place], [address] Urinalysis, Completeon 04-30 BACTERIA 0 SEEN Normal None Seen [facility] Comment on above: Order Comment: CLEAN CATCH Performed By: #### M 100.2200, L400.0001 ####[facility] [address] [place], [address] EPI,SQUAMOUS 0 SEEN Normal 0-5 [facility] Comment on above: Order Comment: CLEAN CATCH Performed By: #### M 100.2200, L400.0001 ####[facility] [address] [place], [address] Mucus Ql (Urine sed) 0 SEEN Normal [facility] Comment on above: Order Comment: CLEAN CATCH Performed By: #### M 100.2200, L400.0001 ####[facility] [address] [place], [address] RBC 0 SEEN Normal 0-5 [facility] Comment on above: Order Comment: CLEAN CATCH Performed By: #### M 100.2200, L400.0001 ####[facility] [address] [place], [address] WBC 0 SEEN Normal 0-5 [facility] Comment on above: Order Comment: CLEAN CATCH Performed By: #### M 100.2200, L400.0001 ####[facility] [address] [place], [address] CBC-Complete Blood Cnt No Di ffon 04-29-2025 Erythrocyte distribution width (RBC) [Ratio] 13.8 % Normal 11.6-14.6 [facility] Comment on above: Order Comment: 215.2 Performed By: #### L 500.4050, L100.0500 ####[facility] [address] [place], [address] Hematocrit (Bld) [Volume fraction] 32.8 % Low 40-54 [facility] Comment on above: Order Comment: 215.2 Performed By: #### L 500.4050, L100.0500 ####[facility] [address] [place], [address] Hemoglobin (Bld) [Mass/Vol] 10.8 g/dL Low 13.0-16. 5 [facility] Comment on above: Order Comment: 215.2 Performed By: #### L 500.4050, L100.0500 ####[facility] [address] [place], [address] MCH (RBC) [Entitic mass] 27.4 pg Normal 27.0-32.0 [facility] Comment on above: Order Comment: 215.2 Performed By: #### L 500.4050, L100.0500 ####[facility] [address] [place], [address] MCHC (RBC) [Mass/Vol] 32.9 g/dL Normal 32-36 [facility] Comment on above: Order Comment: 215.2 Performed By: #### L 500.4050, L100.0500 ####[facility] [address] [place], [address] MCV (RBC) [Entitic vol] 83.2 fL Normal 80-94 [facility] Comment on above: Order Comment: 215.2 Performed By: #### L 500.4050, L100.0500 ####[facility] [address] [place], [address] Platelet mean volume (Bld) [Entitic vol] 9.4 fL Normal 6.2-12.0 [facility] Comment on above: Order Comment: 215.2 Performed By: #### L 500.4050, L100.0500 ####[facility] [address] [place], [address] Platelets (Bld) [#/Vol] 230 10*3/uL Normal 150-450 [facility] Comment on above: Order Comment: 215.2 Performed By: #### L 500.4050, L100.0500 ####[facility] [address] [place], [address] RBC (Bld) [#/Vol] 3.94 10*6/uL Low 4.6-6.2 [facility] Comment on above: Order Comment: 215.2 Performed By: #### L 500.4050, L100.0500 ####[facility] [address] [place], [address] RDW SD 42.3 fl Normal 35.1-43.9 [facility] Comment on above: Order Comment: 215.2 Performed By: #### L 500.4050, L100.0500 ####[facility] [address] [place], [address] WBC (Bld) [#/Vol] 11.6 10*3/uL High 4.4-11.0 [facility] Comment on above: Order Comment: 215.2 Performed By: #### L 500.4050, L100.0500 ####[facility] [address] [place], [address] Comprehensive Metabolic Prof ilsameera 04-29-2025 Albumin [Mass/Vol] 3.3 g/dL Low 3.4-4.8 [facility] Comment on above: Order Comment: 215.2 Performed By: #### L 500.4050, L100.0500 ####[facility] [address] [place], [address] Albumin/Globulin [Mass ratio] 1.6 {ratio} Normal 0.9-2.4 [facility] Comment on above: Order Comment: 215.2 Performed By: #### L 500.4050, L100.0500 ####[facility] [address] [place], [address] ALK PHOS 98 U/L Normal 40-129 [facility] Comment on above: Order Comment: 215.2 Performed By: #### L 500.4050, L100.0500 ####[facility] [address] [place], [address] ALT [Catalytic activity/Vol] 12 U/L Normal <=46 [facility] Comment on above: Order Comment: 215.2 Performed By: #### L 500.4050, L100.0500 ####[facility] [address] [place], [address] AST [Catalytic activity/Vol] 12 U/L Normal <=37 [facility] Comment on above: Order Comment: 215.2 Performed By: #### L 500.4050, L100.0500 ####[facility] [address] [place], [address] Bilirubin [Mass/Vol] 0.35 mg/dL Normal 0.00-1.30 [facility] Comment on above: Order Comment: 215.2 Performed By: #### L 500.4050, L100.0500 ####[facility] [address] [place], [address] BUN/CRE 30.1 RATIO High 10-20 [facility] Comment on above: Order Comment: 215.2 Performed By: #### L 500.4050, L100.0500 ####[facility] [address] [place], [address] Calcium [Mass/Vol] 9.3 mg/dL Normal 7.6-11.0 [facility] Comment on above: Order Comment: 215.2 Performed By: #### L 500.4050, L100.0500 ####[facility] [address] [place], [address] Chloride [Moles/Vol] 103 mmol/L Normal 98-108 [facility] Comment on above: Order Comment: 215.2 Performed By: #### L 500.4050, L100.0500 ####[facility] [address] [place], [address] CO2 [Moles/Vol] 25.5 mmol/L Normal 21.0-32.0 [facility] Comment on above: Order Comment: 215.2 Performed By: #### L 500.4050, L100.0500 ####[facility] [address] [place], [address] Creatinine [Mass/Vol] 1.29 mg/dL High 0.70-1.20 [facility] Comment on above: Order Comment: 215.2 Performed By: #### L 500.4050, L100.0500 ####[facility] [address] [place], [address] GAP 11 Normal 5-15 [facility] Comment on above: Order Comment: 215.2 Performed By: #### L 500.4050, L100.0500 ####[facility] [address] [place], [address] GFR/1.73 sq M.predicted among non-blacks MDRD (S/P/Bld) [Vol rate/Area] 57 mL/min/{1.73_m2} Low >60 [facility] Comment on above: Order Comment: 215.2 Result Comment: mL/m in/1.73m2 CKD-EPI Creatinine Equation (2020) Performed By: #### L 500.4050, L100.0500 ####[facility] [address] [place], [address] Globulin (S) [Mass/Vol] 2.1 g/dL Low 2.2-4.2 [facility] Comment on above: Order Comment: 215.2 Performed By: #### L 500.4050, L100.0500 ####[facility] [address] [place], [address] Glucose [Mass/Vol] 136 mg/dL High 70-99 [facility] Comment on above: Order Comment: 215.2 Performed By: #### L 500.4050, L100.0500 ####[facility] [address] [place], [address] Potassium [Moles/Vol] 3.4 mmol/L Normal 3.3-5.1 [facility] Comment on above: Order Comment: 215.2 Performed By: #### L 500.4050, L100.0500 ####[facility] [address] [place], [address] Sodium [Moles/Vol] 140 mmol/L Normal 133-145 [facility] Comment on above: Order Comment: 215.2 Performed By: #### L 500.4050, L100.0500 ####[facility] [address] [place], [address] T PROT 5.4 g/dL Low 5.9-8.4 [facility] Comment on above: Order Comment: 215.2 Performed By: #### L 500.4050, L100.0500 ####[facility] [address] [place], [address] Urea nitrogen [Mass/Vol] 39 mg/dL High 4-19 [facility] Comment on above: Order Comment: 215.2 Performed By: #### L 500.4050, L100.0500 ####[facility] [address] [place], [address] Basic Metabolic Profile (BMP )on 04-09-2025 BUN/CRE 33.2 RATIO High 10-20 [facility] Comment on above: Order Comment: 215.2 Performed By: #### L 100.0500, L500.2500 ####[facility] [address] [place], [address] Calcium [Mass/Vol] 9.5 mg/dL Normal 7.6-11.0 [facility] Comment on above: Order Comment: 215.2 Performed By: #### L 100.0500, L500.2500 ####[facility] [address] [place], [address] Chloride [Moles/Vol] 105 mmol/L Normal 98-108 [facility] Comment on above: Order Comment: 215.2 Performed By: #### L 100.0500, L500.2500 ####[facility] [address] [place], [address] CO2 [Moles/Vol] 24.7 mmol/L Normal 21.0-32.0 [facility] Comment on above: Order Comment: 215.2 Performed By: #### L 100.0500, L500.2500 ####[facility] [address] [place], [address] Creatinine [Mass/Vol] 1.30 mg/dL High 0.70-1.20 [facility] Comment on above: Order Comment: 215.2 Performed By: #### L 100.0500, L500.2500 ####[facility] [address] [place], [address] GAP 12 Normal 5-15 [facility] Comment on above: Order Comment: 215.2 Performed By: #### L 100.0500, L500.2500 ####[facility] [address] [place], [address] GFR/1.73 sq M.predicted among non-blacks MDRD (S/P/Bld) [Vol rate/Area] 57 mL/min/{1.73_m2} Low >60 [facility] Comment on above: Order Comment: 215.2 Result Comment: mL/m in/1.73m2 CKD-EPI Creatinine Equation (2020) Performed By: #### L 100.0500, L500.2500 ####[facility] [address] [place], [address] Glucose [Mass/Vol] 119 mg/dL High 70-99 [facility] Comment on above: Order Comment: 215.2 Performed By: #### L 100.0500, L500.2500 ####[facility] [address] [place], [address] Potassium [Moles/Vol] 3.6 mmol/L Normal 3.3-5.1 [facility] Comment on above: Order Comment: 215.2 Result Comment: Hemo lysis present, Results??could be affected.?? Performed By: #### L 100.0500, L500.2500 ####[facility] [address] [place], [address] Sodium [Moles/Vol] 141 mmol/L Normal 133-145 [facility] Comment on above: Order Comment: 215.2 Performed By: #### L 100.0500, L500.2500 ####[facility] [address] [place], [address] Urea nitrogen [Mass/Vol] 43 mg/dL High 4-19 [facility] Comment on above: Order Comment: 215.2 Performed By: #### L 100.0500, L500.2500 ####[facility] [address] [place], [address] CBC-Complete Blood Cnt No Di ffon 04-09-2025 Erythrocyte distribution width (RBC) [Ratio] 13.6 % Normal 11.6-14.6 [facility] Comment on above: Order Comment: 215.2 Performed By: #### L 100.0500, L500.2500 ####[facility] [address] [place], [address] Hematocrit (Bld) [Volume fraction] 35.6 % Low 40-54 [facility] Comment on above: Order Comment: 215.2 Performed By: #### L 100.0500, L500.2500 ####[facility] [address] [place], [address] Hemoglobin (Bld) [Mass/Vol] 11.8 g/dL Low 13.0-16. 5 [facility] Comment on above: Order Comment: 215.2 Performed By: #### L 100.0500, L500.2500 ####[facility] [address] [place], [address] MCH (RBC) [Entitic mass] 28.0 pg Normal 27.0-32.0 [facility] Comment on above: Order Comment: 215.2 Performed By: #### L 100.0500, L500.2500 ####[facility] [address] [place], [address] MCHC (RBC) [Mass/Vol] 33.1 g/dL Normal 32-36 [facility] Comment on above: Order Comment: 215.2 Performed By: #### L 100.0500, L500.2500 ####[facility] [address] [place], [address] MCV (RBC) [Entitic vol] 84.4 fL Normal 80-94 [facility] Comment on above: Order Comment: 215.2 Performed By: #### L 100.0500, L500.2500 ####[facility] [address] [place], [address] Platelet mean volume (Bld) [Entitic vol] 9.4 fL Normal 6.2-12.0 [facility] Comment on above: Order Comment: 215.2 Performed By: #### L 100.0500, L500.2500 ####[facility] [address] [place], [address] Platelets (Bld) [#/Vol] 222 10*3/uL Normal 150-450 [facility] Comment on above: Order Comment: 215.2 Performed By: #### L 100.0500, L500.2500 ####[facility] [address] [place], [address] RBC (Bld) [#/Vol] 4.22 10*6/uL Low 4.6-6.2 [facility] Comment on above: Order Comment: 215.2 Performed By: #### L 100.0500, L500.2500 ####[facility] [address] [place], [address] RDW SD 41.8 fl Normal 35.1-43.9 [facility] Comment on above: Order Comment: 215.2 Performed By: #### L 100.0500, L500.2500 ####[facility] [address] [place], [address] WBC (Bld) [#/Vol] 10.3 10*3/uL Normal 4.4-11.0 [facility] Comment on above: Order Comment: 215.2 Performed By: #### L 100.0500, L500.2500 ####[facility] [address] [place], [address] Acid Fast Bacillus Cultureon 03-22-2025 [facility] Comment on above: Performed By: #### M 300.2000, M300.3000 ####[facility] [address] [place], [address] [facility] Comment on above: Performed By: #### M 300.2000, M300.3000 ####[facility] [address] [place], [address] Acid Fast Bacillus Smear/Flu oron 03-22-2025 tafb [facility] Comment on above: Performed By: #### M 300.2000, M300.3000 ####[facility] [address] [place], [address] [facility] Comment on above: Performed By: #### M 300.2000, M300.3000 ####[facility] [address] [place], [address] Cardiology Visit Reporton Cardiology Visit Report Normal [facility] Culture, Fungus 8482on 03-22 CUF [facility] Comment on above: Performed By: #### M 100.3000, M600.2000, M100.2000, M600.2200, M100.4001 ####[facility] [address] [place], [address] CUF [facility] Comment on above: Performed By: #### M 100.3000, M100.2000, M600.2200, M100.4001, M600.2000 ####[facility] [address] [place], [address] Fungus Stain 8136on 03-22-20 25 FUNST [facility] Comment on above: Performed By: #### M 100.3000, M600.2000, M100.2000, M600.2200, M100.4001 ####[facility] [address] [place], [address] FUNST Normal [facility] Comment on above: Performed By: #### M 100.3000, M100.2000, M600.2200, M100.4001, M600.2000 ####[facility] [address] [place], [address] Pacemaker Checkon 03-22-2025 Pacemaker Check Normal [facility] Arterial Doppler ultrasound reportOrdered By: Aneesh Ac on 03-17-2025 Study report [facility] Work Phone: [phone] Arterial study reportOrdered By: Aneesh Ac on 03-17-2025 Noninvasive arteriosclerosis study report [facility] Work Phone: [phone] Anion gap in Serum or Plasma Ordered By: Walter Becker on 03-16-2025 Anion gap [Moles/Vol] 10 mmol/L 5-15 [facility] Ankle Brachial Indexon 03-16 Ankle Brachial Index Normal [facility] BUN/creatinine ratioOrdered By: Walter Becker on 03-16-2025 Urea nitrogen/Creatinine [Mass ratio] 34.7 mg/mg High 10-20 [facility] Bilirubin, totalOrdered By: Walter Becker on 03-16-2025 Bilirubin [Mass/Vol] 0.48 mg/dL 0.00-1.30 [facility] CBC-Complete Blood Cnt No Di ffon 03-16-2025 Erythrocyte distribution width (RBC) [Ratio] 13.8 % Normal 11.6-14.6 [facility] Comment on above: Order Comment: 215.2 Performed By: #### L 100.0500, L500.4050, L501.9985 ####[facility] [address] [place], [address] Hematocrit (Bld) [Volume fraction] 37.1 % Low 40-54 [facility] Comment on above: Order Comment: 215.2 Performed By: #### L 100.0500, L500.4050, L501.9985 ####[facility] [address] [place], [address] Hemoglobin (Bld) [Mass/Vol] 12.0 g/dL Low 13.0-16. 5 [facility] Comment on above: Order Comment: 215.2 Performed By: #### L 100.0500, L500.4050, L501.9985 ####[facility] [address] [place], [address] MCH (RBC) [Entitic mass] 27.6 pg Normal 27.0-32.0 [facility] Comment on above: Order Comment: 215.2 Performed By: #### L 100.0500, L500.4050, L501.9985 ####[facility] [address] [place], [address] MCHC (RBC) [Mass/Vol] 32.3 g/dL Normal 32-36 [facility] Comment on above: Order Comment: 215.2 Performed By: #### L 100.0500, L500.4050, L501.9985 ####[facility] [address] [place], [address] MCV (RBC) [Entitic vol] 85.3 fL Normal 80-94 [facility] Comment on above: Order Comment: 215.2 Performed By: #### L 100.0500, L500.4050, L501.9985 ####[facility] [address] [place], [address] Platelet mean volume (Bld) [Entitic vol] 9.6 fL Normal 6.2-12.0 [facility] Comment on above: Order Comment: 215.2 Performed By: #### L 100.0500, L500.4050, L501.9985 ####[facility] [address] [place], [address] Platelets (Bld) [#/Vol] 207 10*3/uL Normal 150-450 [facility] Comment on above: Order Comment: 215.2 Performed By: #### L 100.0500, L500.4050, L501.9985 ####[facility] [address] [place], [address] RBC (Bld) [#/Vol] 4.35 10*6/uL Low 4.6-6.2 [facility] Comment on above: Order Comment: 215.2 Performed By: #### L 100.0500, L500.4050, L501.9985 ####[facility] [address] [place], [address] RDW SD 43.0 fl Normal 35.1-43.9 [facility] Comment on above: Order Comment: 215.2 Performed By: #### L 100.0500, L500.4050, L501.9985 ####[facility] [address] [place], [address] WBC (Bld) [#/Vol] 9.5 10*3/uL Normal 4.4-11.0 [facility] Comment on above: Order Comment: 215.2 Performed By: #### L 100.0500, L500.4050, L501.9985 ####[facility] [address] [place], [address] Carbon dioxide, total [Moles /volume] in Central venous bloodOrdered By: Walter Becker on 03-16-2025 CO2 [Moles/Vol] 26.3 mmol/L 21.0-32.0 [facility] Chloride assayOrdered By: Horner on 03-16-2025 Chloride [Moles/Vol] 105 mmol/L 98-108 [facility] Comprehensive Metabolic Prof ilon 03-16-2025 Albumin [Mass/Vol] 3.8 g/dL Normal 3.4-4.8 [facility] Comment on above: Order Comment: 215.2 Performed By: #### L 100.0500, L500.4050, L501.9985 ####[facility] [address] [place], [address] Albumin/Globulin [Mass ratio] 1.5 {ratio} Normal 0.9-2.4 [facility] Comment on above: Order Comment: 215.2 Performed By: #### L 100.0500, L500.4050, L501.9985 ####[facility] [address] [place], [address] ALK PHOS 121 U/L Normal 40-129 [facility] Comment on above: Order Comment: 215.2 Performed By: #### L 100.0500, L500.4050, L501.9985 ####[facility] [address] [place], [address] ALT [Catalytic activity/Vol] 15 U/L Normal <=46 [facility] Comment on above: Order Comment: 215.2 Performed By: #### L 100.0500, L500.4050, L501.9985 ####[facility] [address] [place], [address] AST [Catalytic activity/Vol] 9 U/L Normal <=37 [facility] Comment on above: Order Comment: 215.2 Performed By: #### L 100.0500, L500.4050, L501.9985 ####[facility] [address] [place], [address] Bilirubin [Mass/Vol] 0.48 mg/dL Normal 0.00-1.30 [facility] Comment on above: Order Comment: 215.2 Performed By: #### L 100.0500, L500.4050, L501.9985 ####[facility] [address] [place], [address] BUN/CRE 34.7 RATIO High 10-20 [facility] Comment on above: Order Comment: 215.2 Performed By: #### L 100.0500, L500.4050, L501.9985 ####[facility] [address] [place], [address] Calcium [Mass/Vol] 10.0 mg/dL Normal 7.6-11.0 [facility] Comment on above: Order Comment: 215.2 Performed By: #### L 100.0500, L500.4050, L501.9985 ####[facility] [address] [place], [address] Chloride [Moles/Vol] 105 mmol/L Normal 98-108 [facility] Comment on above: Order Comment: 215.2 Performed By: #### L 100.0500, L500.4050, L501.9985 ####[facility] [address] [place], [address] CO2 [Moles/Vol] 26.3 mmol/L Normal 21.0-32.0 [facility] Comment on above: Order Comment: 215.2 Performed By: #### L 100.0500, L500.4050, L501.9985 ####[facility] [address] [place], [address] Creatinine [Mass/Vol] 1.33 mg/dL High 0.70-1.20 [facility] Comment on above: Order Comment: 215.2 Performed By: #### L 100.0500, L500.4050, L501.9985 ####[facility] [address] [place], [address] GAP 10 Normal 5-15 [facility] Comment on above: Order Comment: 215.2 Performed By: #### L 100.0500, L500.4050, L501.9985 ####[facility] [address] [place], [address] GFR/1.73 sq M.predicted among non-blacks MDRD (S/P/Bld) [Vol rate/Area] 55 mL/min/{1.73_m2} Low >60 [facility] Comment on above: Order Comment: 215.2 Result Comment: mL/m in/1.73m2 CKD-EPI Creatinine Equation (2020) Performed By: #### L 100.0500, L500.4050, L501.9985 ####[facility] [address] [place], [address] Globulin (S) [Mass/Vol] 2.5 g/dL Normal 2.2-4.[address] [facility] Comment on above: Order Comment: 215.2 Performed By: #### L 100.0500, L500.4050, L501.9985 ####[facility] [address] [place], [address] Glucose [Mass/Vol] 156 mg/dL High 70-99 [facility] Comment on above: Order Comment: 215.2 Performed By: #### L 100.0500, L500.4050, L501.9985 ####[facility] [address] [place], [address] Potassium [Moles/Vol] 4.1 mmol/L Normal 3.3-5.1 [facility] Comment on above: Order Comment: 215.2 Performed By: #### L 100.0500, L500.4050, L501.9985 ####[facility] [address] [place], [address] Sodium [Moles/Vol] 141 mmol/L Normal 133-145 [facility] Comment on above: Order Comment: 215.2 Performed By: #### L 100.0500, L500.4050, L501.9985 ####[facility] [address] [place], [address] T PROT 6.3 g/dL Normal 5.9-8.4 [facility] Comment on above: Order Comment: 215.2 Performed By: #### L 100.0500, L500.4050, L501.9985 ####[facility] [address] [place], [address] Urea nitrogen [Mass/Vol] 46 mg/dL High 4-19 [facility] Comment on above: Order Comment: 215.2 Performed By: #### L 100.0500, L500.4050, L501.9985 ####[facility] [address] [place], [address] Erythrocyte distribution wid th ratioOrdered By: Walter Becker on 03-16-2025 Erythrocyte distribution width (RBC) [Ratio] 13.8 % 11.6-14.6 [facility] Erythrocyte distribution wid th standard deviationOrdered By: Walter Becker on 03-16-2025 Erythrocyte distribution width (RBC) [Ratio] 43.0 fl 35.1-43.9 [facility] Glomerular filtration rate ( GFR) estimation/1.73 sq m using serum, plasma, or whole bOrdered By: Walter Becker on 03-16-2025 GFR/1.73 sq M.predicted among non-blacks MDRD (S/P/Bld) [Vol rate/Area] 55 mL/min/{1.73_m2} Low >60 [facility] Hematocrit Auto (Bld) [Volum e fraction]Ordered By: Walter Becker on 03-16-2025 Hematocrit (Bld) [Volume fraction] 37.1 % Low 40-54 [facility] Hemoglobin A1con 03-16-2025 HbA1c (Bld) [Mass fraction] 6.7 % High <=5.6 [facility] Comment on above: Order Comment: 215.2 Result Comment: Norm al < 5.7 % Prediabetic 5.7 - 6.4 % Diabetic >or= 6.5 % Please note range changes. Performed By: #### L 100.0500, L500.4050, L501.9985 ####[facility] [address] [place], [address] Hemoglobin A1c percentageOrd ered By: Walter Becker on 03-16-2025 HbA1c (Bld) [Mass fraction] 6.7 % High <5.7 [facility] Hemoglobin measurementOrdere d By: Walter Becker on 03-16-2025 Hemoglobin (Bld) [Mass/Vol] 12.0 g/dL Low 13.0-16. 5 [facility] MCV (mean corpuscular volume ) determinationOrdered By: Walter Becker on 03-16-2025 MCV (RBC) [Entitic vol] 85.3 fL 80-94 [facility] Mean corpuscular hemoglobin (MCH) determinationOrdered By: Walter Becker on 03-16-2025 MCH (RBC) [Entitic mass] 27.6 pg 27.0-32.0 [facility] No Panel InformationOrdered By: Walter Becker on 03-16-2025 9 U/L <38 [facility] Platelet countOrdered By: Horner on 03-16-2025 Platelets (Bld) [#/Vol] 207 10*3/uL 150-450 [facility] Potassium measurement (mass/ volume)Ordered By: Walter Becker on 03-16-2025 Potassium (Unsp spec) [Mass/Vol] 4.1 mmol/L 3.3-5.1 [facility] RBC Auto (Bld) [#/Vol]Ordere d By: Walter Becker on 03-16-2025 RBC (Bld) [#/Vol] 4.35 10*6/uL Low 4.6-6.2 [facility] Serum creatinine measurement (mass/volume)Ordered By: Walter Becker on 03-16-2025 Creatinine [Mass/Vol] 1.33 mg/dL High 0.70-1.20 [facility] Serum globulin measurementOr dered By: Walter Becker on 03-16-2025 Globulin (S) [Mass/Vol] 2.5 g/dL 2.2-4.[address] [facility] Serum glucose measurement (m ass/volume)Ordered By: Walter Becker on 03-16-2025 Glucose [Mass/Vol] 156 mg/dL High 70-99 [facility] Serum or plasma alanine davis otransferase (ALT) measurementOrdered By: Walter Becker on 03-16-2025 ALT [Catalytic activity/Vol] 15 U/L <47 [facility] Serum or plasma albumin antoine urement (mass/volume)Ordered By: Walter Becker on 03-16-2025 Albumin [Mass/Vol] 3.8 g/dL 3.4-4.8 [facility] Serum or plasma albumin/glob ulin mass ratioOrdered By: Walter Becker on 03-16-2025 Albumin/Globulin [Mass ratio] 1.5 {ratio} 0.9-2.4 [facility] Serum or plasma alkaline marilin sphatase measurementOrdered By: Walter Becker on 03-16-2025 ALP [Catalytic activity/Vol] 121 U/L 40-129 [facility] Serum or plasma calcium antoine urement (mass/volume)Ordered By: Waltre Becker on 03-16-2025 Calcium [Mass/Vol] 10.0 mg/dL 7.6-11.0 [facility] Serum or plasma urea nitroge n measurement (mass/volume)Ordered By: Walter Becker on 03-16-2025 Urea nitrogen [Mass/Vol] 46 mg/dL High 4-19 [facility] Sodium levelOrdered By: Walter Becker on 03-16-2025 Sodium [Moles/Vol] 141 mmol/L 133-145 [facility] Total proteinOrdered By: Crystal Becker on 03-16-2025 Protein [Mass/Vol] 6.3 g/dL 5.9-8.4 [facility] US Art Duplex Unilat Lower E xton 03-16-2025 Art Duplex Unilat Lower Ext Normal [facility] White blood cell (WBC) count Ordered By: Walter Becker on 03-16-2025 WBC (Bld) [#/Vol] 9.5 10*3/uL 4.4-11.0 [facility] Culture, Blood (WB)on 2024 CUB Normal [facility] Comment on above: Performed By: #### L 100.0100, L503.6005, L500.4050, M200.1000, L300.4310, L300.3900, M100.636 ####[facility] [address] [place], [address] L509.6001on 03-03-2025 CORTISOL 10.60 ug/dL Normal 6.02-18.40 [facility] Comment on above: Order Comment: 215-2 Performed By: #### L 509.6001, L501.9520, L506.0400, L503.0106 ####[facility] [address] [place], [address] MR/BMS.BVSon 03-03-2025 MR/BMS.BVS Normal [facility] Serum or plasma cortisol hank surement (mass/volume)Ordered By: Walter Becker on 03-03-2025 Cortisol [Mass/Vol] 10.60 ug/dL 6.02-18.40 [facility] T4 Free Directon 03-03-2025 T4 FREE DIRECT 1.60 ng/dL High 0.76-1.46 [facility] Comment on above: Order Comment: 215-2 Performed By: #### L 509.6001, L501.9520, L506.0400, L503.0106 ####[facility] [address] [place], [address] T4 freeOrdered By: Walter glovero on 03-03-2025 Free T4 [Mass/Vol] 1.60 ng/dL High 0.76-1.46 [facility] TSH DL <= 0.005 mIU/L QnOrde red By: Walter Becker on 03-03-2025 TSH Qn 1.180 uIU/mL 0.300-4.20 0 [facility] Thyroid Stim Hormone (TSH)on 03-03-2025 TSH 1.180 uIU/mL Normal 0.300-4.20 0 [facility] Comment on above: Order Comment: 215-2 Performed By: #### L 509.6001, L501.9520, L506.0400, L503.0106 ####[facility] [address] [place], [address] Vitamin B12on 03-03-2025 Cobalamin (Vitamin B12) [Mass/Vol] 522 pg/mL Normal 180-914 [facility] Comment on above: Order Comment: 215-2 Performed By: #### L 509.6001, L501.9520, L506.0400, L503.0106 ####[facility] [address] [place], [address] Vitamin B12 ser/plasOrdered By: Walter Becker on 03-03-2025 Cobalamin (Vitamin B12) [Mass/Vol] 522 pg/mL 180-914 [facility] BC GPC IDon 03-01-2025 GPC ID Normal [facility] Comment on above: Performed By: #### L 100.0100, L503.6005, L500.4050, M200.1000, L300.4310, L300.3900, M100.636 ####[facility] [address] [place], [address] Urine Cultureon 02-28-2025 URC Culture exhibits no growth. Normal [facility] Comment on above: Performed By: #### L 400.0001, M100.2200 ####[facility] [address] [place], [address] Absolute lymphocyte countOrd ered By: Bennett Troncoso on 02-27-2025 Lymphocytes Auto (Unsp spec) [#/Vol] 1.80 10*3/uL 0.83-4.51 [facility] Activated partial thrombopla stin time (aPTT) in platelet poor plasma by coagulation aOrdered By: Bennett Troncoso on 02-27-2025 aPTT Coag (PPP) [Time] 29.4 s 24.1-36.2 [facility] Anion gap in Serum or Plasma Ordered By: Benntet Troncoso on 02-27-2025 Anion gap [Moles/Vol] 12 mmol/L 5-15 [facility] Automated lymphocyte count a s percentage of total leukocytesOrdered By: Bennett Troncoso on 02-27-2025 Lymphocytes/100 WBC Auto (Unsp spec) 14.2 % Low 19-41 [facility] BUN/creatinine ratioOrdered By: Bennettjanessa Troncoso on 02-27-2025 Urea nitrogen/Creatinine [Mass ratio] 34.0 mg/mg High 10-20 [facility] [facility] Basophil percentageOrdered B y: Bennettjanessa Troncoso on 02-27-2025 Basophils/100 WBC (Bld) 0.6 % 0-1 [facility] Bilirubin Test strip Ql (U)O rdered By: Bennett Troncoso on 02-27-2025 Bilirubin Ql (U) Negative Negative [facility] Bilirubin, totalOrdered By: Bennett Troncoso on 02-27-2025 Bilirubin [Mass/Vol] 0.47 mg/dL 0.00-1.30 [facility] Blood cultureOrdered By: Brook janessa Karyna on 02-27-2025 Bacteria identified Cx Nom (Bld) No growth in 5 days. [facility] Bacteria identified Cx Nom (Bld) Negative Abnormal [facility] Brain/Head without Contrasto n 02-27-2025 Brain/Head without Contrast Normal [facility] CBC W/Diff, Automatedon 02-12 Absolute Lymph 1.80 X10 3/uL Normal 0.83-4.51 [facility] Comment on above: Performed By: #### L 100.0100, L503.6005, L500.4050, M200.1000, L300.4310, L300.3900, M100.636 ####[facility] [address] [place], [address] Absolute Neut 9.0 X10 3/uL High 2.0-7.7 [facility] Comment on above: Performed By: #### L 100.0100, L503.6005, L500.4050, M200.1000, L300.4310, L300.3900, M100.636 ####[facility] [address] [place], [address] Basophils/100 WBC (Bld) 0.6 % Normal 0-1 [facility] Comment on above: Performed By: #### L 100.0100, L503.6005, L500.4050, M200.1000, L300.4310, L300.3900, M100.636 ####[facility] [address] [place], [address] Eosinophils/100 WBC (Bld) 7.1 % High 0-5 [facility] Comment on above: Performed By: #### L 100.0100, L503.6005, L500.4050, M200.1000, L300.4310, L300.3900, M100.636 ####[facility] [address] [place], [address] Erythrocyte distribution width (RBC) [Ratio] 13.8 % Normal 11.6-14.6 [facility] Comment on above: Performed By: #### L 100.0100, L503.6005, L500.4050, M200.1000, L300.4310, L300.3900, M100.636 ####[facility] [address] [place], [address] Hematocrit (Bld) [Volume fraction] 38.8 % Low 40-54 [facility] Comment on above: Performed By: #### L 100.0100, L503.6005, L500.4050, M200.1000, L300.4310, L300.3900, M100.636 ####[facility] [address] [place], [address] Hemoglobin (Bld) [Mass/Vol] 12.3 g/dL Low 13.0-16. 5 [facility] Comment on above: Performed By: #### L 100.0100, L503.6005, L500.4050, M200.1000, L300.4310, L300.3900, M100.636 ####[facility] [address] [place], [address] IG% 0.800 Normal 0.0-0.9 [facility] Comment on above: Result Comment: IG% - Immature Granulocytes (promyelocytes, myelocytes andmetamyelocytes) > 1% indicates that a LEFT SHIFT is Present. Performed By: #### L 100.0100, L503.6005, L500.4050, M200.1000, L300.4310, L300.3900, M100.636 ####[facility] [address] [place], [address] Lymphocytes/100 WBC (Bld) 14.2 % Low 19-41 [facility] Comment on above: Performed By: #### L 100.0100, L503.6005, L500.4050, M200.1000, L300.4310, L300.3900, M100.636 ####[facility] [address] [place], [address] MCH (RBC) [Entitic mass] 27.3 pg Normal 27.0-32.0 [facility] Comment on above: Performed By: #### L 100.0100, L503.6005, L500.4050, M200.1000, L300.4310, L300.3900, M100.636 ####[facility] [address] [place], [address] MCHC (RBC) [Mass/Vol] 31.7 g/dL Low 32-36 [facility] Comment on above: Performed By: #### L 100.0100, L503.6005, L500.4050, M200.1000, L300.4310, L300.3900, M100.636 ####[facility] [address] [place], [address] MCV (RBC) [Entitic vol] 86.0 fL Normal 80-94 [facility] Comment on above: Performed By: #### L 100.0100, L503.6005, L500.4050, M200.1000, L300.4310, L300.3900, M100.636 ####[facility] [address] [place], [address] Monocytes/100 WBC (Bld) 6.1 % Normal 0-10 [facility] Comment on above: Performed By: #### L 100.0100, L503.6005, L500.4050, M200.1000, L300.4310, L300.3900, M100.636 ####[facility] [address] [place], [address] Neutrophils/100 WBC (Bld) 71.2 % High 47-70 [facility] Comment on above: Performed By: #### L 100.0100, L503.6005, L500.4050, M200.1000, L300.4310, L300.3900, M100.636 ####[facility] [address] [place], [address] Nucleated RBC (Bld) [#/Vol] 0 10*3/uL Normal 0-5 [facility] Comment on above: Performed By: #### L 100.0100, L503.6005, L500.4050, M200.1000, L300.4310, L300.3900, M100.636 ####[facility] [address] [place], [address] Platelet mean volume (Bld) [Entitic vol] 9.4 fL Normal 6.2-12.0 [facility] Comment on above: Performed By: #### L 100.0100, L503.6005, L500.4050, M200.1000, L300.4310, L300.3900, M100.636 ####[facility] [address] [place], [address] Platelets (Bld) [#/Vol] 234 10*3/uL Normal 150-450 [facility] Comment on above: Performed By: #### L 100.0100, L503.6005, L500.4050, M200.1000, L300.4310, L300.3900, M100.636 ####[facility] [address] [place], [address] RBC (Bld) [#/Vol] 4.51 10*6/uL Low 4.6-6.2 [facility] Comment on above: Performed By: #### L 100.0100, L503.6005, L500.4050, M200.1000, L300.4310, L300.3900, M100.636 ####[facility] [address] [place], [address] RDW SD 42.7 fl Normal 35.1-43.9 [facility] Comment on above: Performed By: #### L 100.0100, L503.6005, L500.4050, M200.1000, L300.4310, L300.3900, M100.636 ####[facility] [address] [place], [address] WBC (Bld) [#/Vol] 12.7 10*3/uL High 4.4-11.0 [facility] Comment on above: Performed By: #### L 100.0100, L503.6005, L500.4050, M200.1000, L300.4310, L300.3900, M100.636 ####[facility] [address] [place], [address] Carbon dioxide, total [Moles /volume] in Central venous bloodOrdered By: Bennett Troncoso on 02-27-2025 CO2 [Moles/Vol] 27.8 mmol/L 21.0-32.0 [facility] Chest PA and Lateralon 02-27 Chest PA and Lateral Normal [facility] Chloride assayOrdered By: Johnny Troncoso on 02-27-2025 Chloride [Moles/Vol] 98 mmol/L 98-108 [facility] Comprehensive Metabolic Prof ilon 02-27-2025 Albumin [Mass/Vol] 3.9 g/dL Normal 3.4-4.8 [facility] Comment on above: Performed By: #### L 100.0100, L503.6005, L500.4050, M200.1000, L300.4310, L300.3900, M100.636 ####[facility] [address] [place], [address] Albumin/Globulin [Mass ratio] 1.4 {ratio} Normal 0.9-2.4 [facility] Comment on above: Performed By: #### L 100.0100, L503.6005, L500.4050, M200.1000, L300.4310, L300.3900, M100.636 ####[facility] [address] [place], [address] ALK PHOS 107 U/L Normal 40-129 [facility] Comment on above: Performed By: #### L 100.0100, L503.6005, L500.4050, M200.1000, L300.4310, L300.3900, M100.636 ####[facility] [address] [place], [address] ALT [Catalytic activity/Vol] 21 U/L Normal <=46 [facility] Comment on above: Performed By: #### L 100.0100, L503.6005, L500.4050, M200.1000, L300.4310, L300.3900, M100.636 ####[facility] [address] [place], [address] AST [Catalytic activity/Vol] 14 U/L Normal <=37 [facility] Comment on above: Performed By: #### L 100.0100, L503.6005, L500.4050, M200.1000, L300.4310, L300.3900, M100.636 ####[facility] [address] [place], [address] Bilirubin [Mass/Vol] 0.47 mg/dL Normal 0.00-1.30 [facility] Comment on above: Performed By: #### L 100.0100, L503.6005, L500.4050, M200.1000, L300.4310, L300.3900, M100.636 ####[facility] [address] [place], [address] BUN/CRE 34.0 RATIO High 10-20 [facility] Comment on above: Performed By: #### L 100.0100, L503.6005, L500.4050, M200.1000, L300.4310, L300.3900, M100.636 ####[facility] [address] [place], [address] Calcium [Mass/Vol] 9.9 mg/dL Normal 7.6-11.0 [facility] Comment on above: Performed By: #### L 100.0100, L503.6005, L500.4050, M200.1000, L300.4310, L300.3900, M100.636 ####[facility] [address] [place], [address] Chloride [Moles/Vol] 98 mmol/L Normal 98-108 [facility] Comment on above: Performed By: #### L 100.0100, L503.6005, L500.4050, M200.1000, L300.4310, L300.3900, M100.636 ####[facility] [address] [place], [address] CO2 [Moles/Vol] 27.8 mmol/L Normal 21.0-32.0 [facility] Comment on above: Performed By: #### L 100.0100, L503.6005, L500.4050, M200.1000, L300.4310, L300.3900, M100.636 ####[facility] [address] [place], [address] Creatinine [Mass/Vol] 1.49 mg/dL High 0.70-1.20 [facility] Comment on above: Performed By: #### L 100.0100, L503.6005, L500.4050, M200.1000, L300.4310, L300.3900, M100.636 ####[facility] [address] [place], [address] ECRCL 54.14 ml/min Normal 50-250 [facility] Comment on above: Performed By: #### L 100.0100, L503.6005, L500.4050, M200.1000, L300.4310, L300.3900, M100.636 ####[facility] [address] [place], [address] GAP 12 Normal 5-15 [facility] Comment on above: Performed By: #### L 100.0100, L503.6005, L500.4050, M200.1000, L300.4310, L300.3900, M100.636 ####[facility] [address] [place], [place], [id number](364) GFR/1.73 sq M.predicted among non-blacks MDRD (S/P/Bld) [Vol rate/Area] 48 mL/min/{1.73_m2} Low >60 [facility] Comment on above: Result Comment: mL/m in/1.73m2 CKD-EPI Creatinine Equation (2020) Performed By: #### L 100.0100, L503.6005, L500.4050, M200.1000, L300.4310, L300.3900, M100.636 ####[facility] [address] [place], [address] Globulin (S) [Mass/Vol] 2.7 g/dL Normal 2.2-4.[address] [facility] Comment on above: Performed By: #### L 100.0100, L503.6005, L500.4050, M200.1000, L300.4310, L300.3900, M100.636 ####[facility] [address] [place], [address] Glucose [Mass/Vol] 176 mg/dL High 70-99 [facility] Comment on above: Performed By: #### L 100.0100, L503.6005, L500.4050, M200.1000, L300.4310, L300.3900, M100.636 ####[facility] [address] [place], [address] Potassium [Moles/Vol] 4.2 mmol/L Normal 3.3-5.1 [facility] Comment on above: Performed By: #### L 100.0100, L503.6005, L500.4050, M200.1000, L300.4310, L300.3900, M100.636 ####[facility] [address] [place], [address] Sodium [Moles/Vol] 138 mmol/L Normal 133-145 [facility] Comment on above: Performed By: #### L 100.0100, L503.6005, L500.4050, M200.1000, L300.4310, L300.3900, M100.636 ####[facility] [address] [place], [address] T PROT 6.6 g/dL Normal 5.9-8.4 [facility] Comment on above: Performed By: #### L 100.0100, L503.6005, L500.4050, M200.1000, L300.4310, L300.3900, M100.636 ####[facility] [address], [address] Urea nitrogen [Mass/Vol] 51 mg/dL High 4-19 [facility] Comment on above: Performed By: #### L 100.0100, L503.6005, L500.4050, M200.1000, L300.4310, L300.3900, M100.636 ####[facility] [address] [place], [address] Emergency Department Summary on 02-27-2025 Emergency Department Summary Normal [facility] Eosinophil percentageOrdered By: Bennett Troncoso on 02-27-2025 Eosinophils/100 WBC (Bld) 7.1 % High 0-5 [facility] Erythrocyte distribution wid th ratioOrdered By: Bennett Troncoso on 02-27-2025 Erythrocyte distribution width (RBC) [Ratio] 13.8 % 11.6-14.6 [facility] Erythrocyte distribution wid th standard deviationOrdered By: Bennett Troncoso on 02-27-2025 Erythrocyte distribution width (RBC) [Ratio] 42.7 fl 35.1-43.9 [facility] Foot min 3 Viewson 5 Foot min 3 Views Normal [facility] Glomerular filtration rate ( GFR) estimation/1.73 sq m using serum, plasma, or whole bOrdered By: Bennett Troncoso on 02-27-2025 GFR/1.73 sq M.predicted among non-blacks MDRD (S/P/Bld) [Vol rate/Area] 48 mL/min/{1.73_m2} Low >60 [facility] Hematocrit Auto (Bld) [Volum e fraction]Ordered By: Bennett Troncoso on 02-27-2025 Hematocrit (Bld) [Volume fraction] 38.8 % Low 40-54 [facility] Hemoglobin measurementOrdere d By: Bennett Troncoso on 02-27-2025 Hemoglobin (Bld) [Mass/Vol] 12.3 g/dL Low 13.0-16. 5 [facility] Immature granulocytes/100 WB C Auto (Bld)Ordered By: Bennett Troncoso on 02-27-2025 Immature granulocytes/100 WBC (Bld) 0.800 % 0.0-0.9 [facility] Ketones Test strip Ql (U)Ord ered By: Bennett Troncoso on 02-27-2025 Ketones Ql (U) Negative Negative [facility] Lactic Acidon 02-27-2025 Lactate [Moles/Vol] 1.5 mmol/L Normal 0.0-2.0 [facility] Comment on above: Order Comment: Y Performed By: #### L 100.0100, L503.6005, L500.4050, M200.1000, L300.4310, L300.3900, M100.636 ####[facility] [address] [place], [address] MCV (mean corpuscular volume ) determinationOrdered By: Bennett Troncoso on 02-27-2025 MCV (RBC) [Entitic vol] 86.0 fL 80-94 [facility] Mean corpuscular hemoglobin (MCH) determinationOrdered By: Bennett Troncoso on 02-27-2025 MCH (RBC) [Entitic mass] 27.3 pg 27.0-32.0 [facility] Monocyte percentageOrdered B y: Bennett Troncoso on 02-27-2025 Monocytes/100 WBC (Bld) 6.1 % 0-10 [facility] Mucus LM Ql (Urine sed)Order ed By: Bennett Troncoso on 02-27-2025 Mucus Ql (Urine sed) 0 SEEN /hpf [facility] Neutrophil percentageOrdered By: Bennett Troncoso on 02-27-2025 Neutrophils/100 WBC (Bld) 71.2 % High 47-70 [facility] Nitrite Test strip Ql (U)Ord ered By: Bennett Troncoso on 02-27-2025 Nitrite Ql (U) Negative Negative [facility] No Panel InformationOrdered By: Bennett Troncoso on 02-27-2025 14 U/L <38 [facility] Organism identificationOrder ed By: Bennett Troncoso on 02-27-2025 Microorganism identified Cx Nom (Unsp spec) Negative Abnormal [facility] Partial Thromboplast Timeon 02-27-2025 aPTT Coag (Bld) [Time] 29.4 s Normal 24.1-36.2 [facility] Comment on above: Performed By: #### L 100.0100, L503.6005, L500.4050, M200.1000, L300.4310, L300.3900, M100.636 ####[facility] [address] [place], [place], [id number]([phone] Platelet countOrdered By: Johnny Troncoso on 02-27-2025 Platelets (Bld) [#/Vol] 234 10*3/uL 150-450 [facility] Potassium measurement (mass/ volume)Ordered By: Bennett Troncoso on 02-27-2025 Potassium (Unsp spec) [Mass/Vol] 4.2 mmol/L 3.3-5.1 [facility] Protein Test strip Ql (U)Ord ered By: Bennett Troncoso on 02-27-2025 Protein Ql (U) 15 mg/dl High Negative [facility] Prothrombin Time w/INRon INR Coag (PPP) [Relative time] 1.2 {INR} Normal [facility] Comment on above: Performed By: #### L 100.0100, L503.6005, L500.4050, M200.1000, L300.4310, L300.3900, M100.636 ####[facility] [address] [place], [address] PT Coag (PPP) [Time] 15.1 s High 11.7-14.9 [facility] Comment on above: Performed By: #### L 100.0100, L503.6005, L500.4050, M200.1000, L300.4310, L300.3900, M100.636 ####[facility] [address] [place], [address] Prothrombin timeOrdered By: Bennett Troncoso on 02-27-2025 PT Coag (PPP) [Time] 15.1 s High 11.7-14.9 [facility] RBC Auto (Bld) [#/Vol]Ordere d By: Bennett Troncoso on 02-27-2025 RBC (Bld) [#/Vol] 4.51 10*6/uL Low 4.6-6.2 [facility] Serum creatinine measurement (mass/volume)Ordered By: Bennett Troncoso on 02-27-2025 Creatinine [Mass/Vol] 1.49 mg/dL High 0.70-1.20 [facility] Serum globulin measurementOr dered By: Bennett Troncoso on 02-27-2025 Globulin (S) [Mass/Vol] 2.7 g/dL 2.2-4.2 [facility] Serum glucose measurement (m ass/volume)Ordered By: Bennett Troncoso on 02-27-2025 Glucose [Mass/Vol] 176 mg/dL High 70-99 [facility] Serum or plasma alanine davis otransferase (ALT) measurementOrdered By: Bennett Troncoso on 02-27-2025 ALT [Catalytic activity/Vol] 21 U/L <47 [facility] Serum or plasma albumin antoine urement (mass/volume)Ordered By: Bennett Troncoso on 02-27-2025 Albumin [Mass/Vol] 3.9 g/dL 3.4-4.8 [facility] Serum or plasma albumin/glob ulin mass ratioOrdered By: Bennett Troncoso on 02-27-2025 Albumin/Globulin [Mass ratio] 1.4 {ratio} 0.9-2.4 [facility] Serum or plasma alkaline marilin sphatase measurementOrdered By: Bennett Troncoso on 02-27-2025 ALP [Catalytic activity/Vol] 107 U/L 40-129 [facility] Serum or plasma calcium antoine urement (mass/volume)Ordered By: Bennett Troncoso on 02-27-2025 Calcium [Mass/Vol] 9.9 mg/dL 7.6-11.0 [facility] Serum or plasma urea nitroge n measurement (mass/volume)Ordered By: Bennett Troncoso on 02-27-2025 Urea nitrogen [Mass/Vol] 51 mg/dL High 4-19 [facility] Sodium levelOrdered By: Teodora Troncoso on 02-27-2025 Sodium [Moles/Vol] 138 mmol/L 133-145 [facility] Squamous epithelial cells de tection in urine sediment by light microscopyOrdered By: Bennett Tronocso on 02-27-2025 Epithelial cells.squamous LM Ql (Urine sed) 0 SEEN /hpf 0-5 [facility] Total proteinOrdered By: Brook Troncoso on 02-27-2025 Protein [Mass/Vol] 6.6 g/dL 5.9-8.4 [facility] Urinalysis, Completeon 02-27 BACTERIA 0 SEEN Normal None Seen [facility] Comment on above: Order Comment: BRIANNA CTOR TO SPECIFY Performed By: #### L 400.0001, M100.2200 ####[facility] [address] [place], [address] EPI,SQUAMOUS 0 SEEN Normal 0-5 [facility] Comment on above: Order Comment: BRIANNA CTOR TO SPECIFY Performed By: #### L 400.0001, M100.2200 ####[facility] [address] [place], [address] Mucus Ql (Urine sed) 0 SEEN Normal [facility] Comment on above: Order Comment: BRIANNA CTOR TO SPECIFY Performed By: #### L 400.0001, M100.2200 ####[facility] [address] [place], [address] RBC 0 SEEN Normal [address] [place] [address] Comment on above: Order Comment: BRIANNA CTOR TO SPECIFY Performed By: #### L 400.0001, M100.2200 ####[facility] [address] [place], [address] WBC 0 SEEN Normal [address] [place] [address] Comment on above: Order Comment: BRIANNA CTOR TO SPECIFY Performed By: #### L 400.0001, M100.2200 ####[facility] [address] [place], [address] Urine clarityOrdered By: Brook Troncoso on 02-27-2025 Clarity (U) Clear Clear [facility] Urine color determinationOrd ered By: Bennett Troncoso on 02-27-2025 Color (U) Straw Yellow [facility] Urine cultureOrdered By: Brook Troncoso on 02-27-2025 Bacteria identified Cx Nom (U) Culture exhibits no growth. [facility] Urine glucose detectionOrder ed By: Bennett Troncoso on 02-27-2025 Glucose Ql (U) Normal mg/dl Normal [facility] Urine leukocyte esterase det ection by dipstickOrdered By: Bennett Troncoso on 02-27-2025 Leukocyte esterase Test strip Ql (U) Negative Negative [facility] Urine pHOrdered By: Bennett rosado on 02-27-2025 pH (U) 6.0 [pH] 5.0 - 8.0 [facility] Urine sediment bacteria coun t by microscopy (number/high power field)Ordered By: Bennett Troncoso on 02-27-2025 Bacteria LM.HPF (Urine sed) [#/Area] 0 /[HPF] None Seen [facility] Urine specific gravity measu rementOrdered By: Bennett Troncoso on 02-27-2025 Specific gravity (U) [Rel density] 1.010 1.002-1.03 0 [facility] Urine urobilinogen measureme ntOrdered By: Bennett Troncoso on 02-27-2025 Urobilinogen Ql (U) Normal mg/dl Normal [facility] White blood cell (WBC) count Ordered By: Bennett Troncoso on 02-27-2025 WBC (Bld) [#/Vol] 12.7 10*3/uL High 4.4-11.0 [facility] White blood cell countOrdere d By: Bennett Troncoso on 02-27-2025 White blood cell count 0 SEEN /hpf 0-5 [facility] Anion gap in Serum or Plasma Ordered By: Walter Becker on 02-26-2025 Anion gap [Moles/Vol] 11 mmol/L - [facility] BUN/creatinine ratioOrdered By: Walter Becker on 02-26-2025 Urea nitrogen/Creatinine [Mass ratio] 31.6 mg/mg High 10- [facility] Basic Metabolic Profile (BMP )on 02-26-2025 BUN/CRE 31.6 RATIO High - [facility] Comment on above: Order Comment: 215-2 Performed By: #### L 500.2500 ####[facility] [address] [place], [address] Calcium [Mass/Vol] 9.8 mg/dL Normal 7.6-11.0 [facility] Comment on above: Order Comment: 215-2 Performed By: #### L 500.2500 ####[facility] [address] [place], [address] Chloride [Moles/Vol] 101 mmol/L Normal 98-108 [facility] Comment on above: Order Comment: 215-2 Performed By: #### L 500.2500 ####[facility] [address] [place], [address] CO2 [Moles/Vol] 27.9 mmol/L Normal 21.0-32.0 [facility] Comment on above: Order Comment: 215-2 Performed By: #### L 500.2500 ####[facility] [address] [place], [address] Creatinine [Mass/Vol] 1.44 mg/dL High 0.70-1.20 [facility] Comment on above: Order Comment: 215-2 Performed By: #### L 500.2500 ####[facility] [address] [place], [address] GAP 11 Normal 5-15 [facility] Comment on above: Order Comment: 215-2 Performed By: #### L 500.2500 ####[facility] [address] [place], [address] GFR/1.73 sq M.predicted among non-blacks MDRD (S/P/Bld) [Vol rate/Area] 50 mL/min/{1.73_m2} Low >60 [facility] Comment on above: Order Comment: 215-2 Result Comment: mL/m in/1.73m2 CKD-EPI Creatinine Equation (2020) Performed By: #### L 500.2500 ####[facility] [address] [place], [address] Glucose [Mass/Vol] 141 mg/dL High 70-99 [facility] Comment on above: Order Comment: 215-2 Performed By: #### L 500.2500 ####[facility] [address] [place], [address] Potassium [Moles/Vol] 3.7 mmol/L Normal 3.3-5.1 [facility] Comment on above: Order Comment: 215-2 Performed By: #### L 500.2500 ####[facility] [address] [place], [address] Sodium [Moles/Vol] 140 mmol/L Normal 133-145 [facility] Comment on above: Order Comment: 215-2 Performed By: #### L 500.2500 ####[facility] [facility] [address] [place], [address] Urea nitrogen [Mass/Vol] 46 mg/dL High 4-19 [facility] Comment on above: Order Comment: 215-2 Performed By: #### L 500.2500 ####[facility] [address] [place], [address] Carbon dioxide, total [Moles /volume] in Central venous bloodOrdered By: Walter Becker on 02-26-2025 CO2 [Moles/Vol] 27.9 mmol/L 21.0-32.0 [facility] Chloride assayOrdered By: Horner on 02-26-2025 Chloride [Moles/Vol] 101 mmol/L 98-108 [facility] Glomerular filtration rate ( GFR) estimation/1.73 sq m using serum, plasma, or whole bOrdered By: Walter Becker on 02-26-2025 GFR/1.73 sq M.predicted among non-blacks MDRD (S/P/Bld) [Vol rate/Area] 50 mL/min/{1.73_m2} Low >60 [facility] Potassium measurement (mass/ volume)Ordered By: Walter Becker on 02-26-2025 Potassium (Unsp spec) [Mass/Vol] 3.7 mmol/L 3.3-5.1 [facility] Serum creatinine measurement (mass/volume)Ordered By: Walter Becker on 02-26-2025 Creatinine [Mass/Vol] 1.44 mg/dL High 0.70-1.20 [facility] Serum glucose measurement (m ass/volume)Ordered By: Walter Becker on 02-26-2025 Glucose [Mass/Vol] 141 mg/dL High 70-99 [facility] Serum or plasma calcium antoine urement (mass/volume)Ordered By: Walter Becker on 02-26-2025 Calcium [Mass/Vol] 9.8 mg/dL 7.6-11.0 [facility] Serum or plasma urea nitroge n measurement (mass/volume)Ordered By: Walter Becker on 02-26-2025 Urea nitrogen [Mass/Vol] 46 mg/dL High 4-19 [facility] Sodium levelOrdered By: Walter Becker on 02-26-2025 Sodium [Moles/Vol] 140 mmol/L 133-145 [facility] Anion gap in Serum or Plasma Ordered By: Walter Becker on 02-25-2025 Anion gap [Moles/Vol] 12 mmol/L - [facility] BUN/creatinine ratioOrdered By: Walter Becker on 02-25-2025 Urea nitrogen/Creatinine [Mass ratio] 30.8 mg/mg High 10- [facility] Basic Metabolic Profile (BMP )on 02-25-2025 BUN/CRE 30.8 RATIO High 05-03 [facility] Comment on above: Order Comment: 215.2 Performed By: #### L 500.2500 ####[facility] [address] [place], [place], [address] Calcium [Mass/Vol] 10.0 mg/dL Normal 7.6-11.0 [facility] Comment on above: Order Comment: 215.2 Performed By: #### L 500.2500 ####[facility] [address] [place], [address] Chloride [Moles/Vol] 100 mmol/L Normal 98-108 [facility] Comment on above: Order Comment: 215.2 Performed By: #### L 500.2500 ####[facility] [address] [place], [address] CO2 [Moles/Vol] 27.9 mmol/L Normal 21.0-32.0 [facility] Comment on above: Order Comment: 215.2 Performed By: #### L 500.2500 ####[facility] [address] [place], [address] Creatinine [Mass/Vol] 1.31 mg/dL High 0.70-1.20 [facility] Comment on above: Order Comment: 215.2 Performed By: #### L 500.2500 ####[facility] [address] [place], [address] GAP 12 Normal 5-15 [facility] Comment on above: Order Comment: 215.2 Performed By: #### L 500.2500 ####[facility] [address] [place], [address] GFR/1.73 sq M.predicted among non-blacks MDRD (S/P/Bld) [Vol rate/Area] 56 mL/min/{1.73_m2} Low >60 [facility] Comment on above: Order Comment: 215.2 Result Comment: mL/m in/1.73m2 CKD-EPI Creatinine Equation (2020) Performed By: #### L 500.2500 ####[facility] [address] [place], [address] Glucose [Mass/Vol] 158 mg/dL High 70-99 [facility] Comment on above: Order Comment: 215.2 Performed By: #### L 500.2500 ####[facility] [address] [place], [address] Potassium [Moles/Vol] 3.8 mmol/L Normal 3.3-5.1 [facility] Comment on above: Order Comment: 215.2 Performed By: #### L 500.2500 ####[facility] [address] [place], [address] Sodium [Moles/Vol] 140 mmol/L Normal 133-145 [facility] Comment on above: Order Comment: 215.2 Performed By: #### L 500.2500 ####[facility] [address] [place], [address] Urea nitrogen [Mass/Vol] 40 mg/dL High 4-19 [facility] Comment on above: Order Comment: 215.2 Performed By: #### L 500.2500 ####[facility] [address] [place], [place], [id number] Carbon dioxide, total [Moles /volume] in Central venous bloodOrdered By: Walter Becker on 02-25-2025 CO2 [Moles/Vol] 27.9 mmol/L 21.0-32.0 [facility] Chloride assayOrdered By: Horner on 02-25-2025 Chloride [Moles/Vol] 100 mmol/L 98-108 [facility] Glomerular filtration rate ( GFR) estimation/1.73 sq m using serum, plasma, or whole bOrdered By: Walter Becker on 02-25-2025 GFR/1.73 sq M.predicted among non-blacks MDRD (S/P/Bld) [Vol rate/Area] 56 mL/min/{1.73_m2} Low >60 [facility] Potassium measurement (mass/ volume)Ordered By: Walter Becker on 02-25-2025 Potassium (Unsp spec) [Mass/Vol] 3.8 mmol/L 3.3-5.1 [facility] Serum creatinine measurement (mass/volume)Ordered By: Walter Becker on 02-25-2025 Creatinine [Mass/Vol] 1.31 mg/dL High 0.70-1.20 [facility] Serum glucose measurement (m ass/volume)Ordered By: Walter Becker on 02-25-2025 Glucose [Mass/Vol] 158 mg/dL High 70-99 [facility] Serum or plasma calcium antoine urement (mass/volume)Ordered By: Walter Becker on 02-25-2025 Calcium [Mass/Vol] 10.0 mg/dL 7.6-11.0 [facility] Serum or plasma urea nitroge n measurement (mass/volume)Ordered By: Walter Becker on 02-25-2025 Urea nitrogen [Mass/Vol] 40 mg/dL High 4-19 [facility] Sodium levelOrdered By: Walter Becker on 02-25-2025 Sodium [Moles/Vol] 140 mmol/L 133-145 [facility] Anion gap in Serum or Plasma Ordered By: Walter Becker on 02-22-2025 Anion gap [Moles/Vol] 13 mmol/L 5-15 [facility] BUN/creatinine ratioOrdered By: Walter Becker on 02-22-2025 Urea nitrogen/Creatinine [Mass ratio] 28.7 mg/mg High 10-20 [facility] Basic Metabolic Profile (BMP )on 02-22-2025 BUN/CRE 28.7 RATIO High 10-20 [facility] Comment on above: Order Comment: 215.2 Performed By: #### L 500.2500 ####[facility] [address] [place], [address] Calcium [Mass/Vol] 9.7 mg/dL Normal 7.6-11.0 [facility] Comment on above: Order Comment: 215.2 Performed By: #### L 500.2500 ####[facility] [address] [place], [address] Chloride [Moles/Vol] 100 mmol/L Normal 98-108 [facility] Comment on above: Order Comment: 215.2 Performed By: #### L 500.2500 ####[facility] [address] [place], [address] CO2 [Moles/Vol] 27.5 mmol/L Normal 21.0-32.0 [facility] Comment on above: Order Comment: 215.2 Performed By: #### L 500.2500 ####[facility] [address] [place], [address] Creatinine [Mass/Vol] 1.45 mg/dL High 0.70-1.20 [facility] Comment on above: Order Comment: 215.2 Performed By: #### L 500.2500 ####[facility] [address] [place], [address] GAP 13 Normal 5-15 [facility] Comment on above: Order Comment: 215.2 Performed By: #### L 500.2500 ####[facility] [address] [place], [address] GFR/1.73 sq M.predicted among non-blacks MDRD (S/P/Bld) [Vol rate/Area] 50 mL/min/{1.73_m2} Low >60 [facility] Comment on above: Order Comment: 215.2 Result Comment: mL/m in/1.73m2 CKD-EPI Creatinine Equation (2020) Performed By: #### L 500.2500 ####[facility] [address] [place], [address] Glucose [Mass/Vol] 152 mg/dL High 70-99 [facility] Comment on above: Order Comment: 215.2 Performed By: #### L 500.2500 ####[facility] [address] [place], [address] Potassium [Moles/Vol] 3.5 mmol/L Normal 3.3-5.1 [facility] Comment on above: Order Comment: 215.2 Performed By: #### L 500.2500 ####[facility] [address] [place], [address] Sodium [Moles/Vol] 140 mmol/L Normal 133-145 [facility] Comment on above: Order Comment: 215.2 Performed By: #### L 500.2500 ####[facility] [address] [place], [place], [address] Urea nitrogen [Mass/Vol] 42 mg/dL High 4-19 [facility] Comment on above: Order Comment: 215.2 Performed By: #### L 500.2500 ####[facility] [address] [place], [place], [address] Carbon dioxide, total [Moles /volume] in Central venous bloodOrdered By: Walter Becker on 02-22-2025 CO2 [Moles/Vol] 27.5 mmol/L 21.0-32.0 [facility] Chloride assayOrdered By: Horner on 02-22-2025 Chloride [Moles/Vol] 100 mmol/L 98-108 [facility] Glomerular filtration rate ( GFR) estimation/1.73 sq m using serum, plasma, or whole bOrdered By: Walter Becker on 02-22-2025 GFR/1.73 sq M.predicted among non-blacks MDRD (S/P/Bld) [Vol rate/Area] 50 mL/min/{1.73_m2} Low >60 [facility] Potassium measurement (mass/ volume)Ordered By: Walter Becker on 02-22-2025 Potassium (Unsp spec) [Mass/Vol] 3.5 mmol/L 3.3-5.1 [facility] Serum creatinine measurement (mass/volume)Ordered By: Walter Becker on 02-22-2025 Creatinine [Mass/Vol] 1.45 mg/dL High 0.70-1.20 [facility] Serum glucose measurement (m ass/volume)Ordered By: Walter Becker on 02-22-2025 Glucose [Mass/Vol] 152 mg/dL High 70-99 [facility] Serum or plasma calcium antoine urement (mass/volume)Ordered By: Waletr Becker on 02-22-2025 Calcium [Mass/Vol] 9.7 mg/dL 7.6-11.0 [facility] Serum or plasma urea nitroge n measurement (mass/volume)Ordered By: Walter Becker on 02-22-2025 Urea nitrogen [Mass/Vol] 42 mg/dL High 4-19 [facility] Sodium levelOrdered By: Walter Becker on 02-22-2025 Sodium [Moles/Vol] 140 mmol/L 133-145 [facility] Anion gap in Serum or Plasma Ordered By: Walter Becker on 02-18-2025 Anion gap [Moles/Vol] 10 mmol/L 5-15 [facility] BUN/creatinine ratioOrdered By: Walter Becker on 02-18-2025 Urea nitrogen/Creatinine [Mass ratio] 29.0 mg/mg High - [facility] Basic Metabolic Profile (BMP )on 02-18-2025 BUN/CRE 29.0 RATIO High 05-03 [facility] Comment on above: Order Comment: 215-2 Performed By: #### L 500.2500, L100.0500 ####[facility] [address] [place], [address] Calcium [Mass/Vol] 9.0 mg/dL Normal 7.6-11.0 [facility] Comment on above: Order Comment: 215-2 Performed By: #### L 500.2500, L100.0500 ####[facility] [address] [place], [address] Chloride [Moles/Vol] 105 mmol/L Normal 98-108 [facility] Comment on above: Order Comment: 215-2 Performed By: #### L 500.2500, L100.0500 ####[facility] [address] [place], [address] CO2 [Moles/Vol] 27.8 mmol/L Normal 21.0-32.0 [facility] Comment on above: Order Comment: 215-2 Performed By: #### L 500.2500, L100.0500 ####[facility] [address] [place], [address] Creatinine [Mass/Vol] 1.42 mg/dL High 0.70-1.20 [facility] Comment on above: Order Comment: 215-2 Performed By: #### L 500.2500, L100.0500 ####[facility] [address] [place], [address] GAP 10 Normal 5-15 [facility] Comment on above: Order Comment: 215-2 Performed By: #### L 500.2500, L100.0500 ####[facility] [address] [place], [address] GFR/1.73 sq M.predicted among non-blacks MDRD (S/P/Bld) [Vol rate/Area] 51 mL/min/{1.73_m2} Low >60 [facility] Comment on above: Order Comment: 215-2 Result Comment: mL/m in/1.73m2 CKD-EPI Creatinine Equation (2020) Performed By: #### L 500.2500, L100.0500 ####[facility] [address] [place], [address] Glucose [Mass/Vol] 140 mg/dL High 70-99 [facility] Comment on above: Order Comment: 215-2 Performed By: #### L 500.2500, L100.0500 ####[facility] [address] [place], [address] Potassium [Moles/Vol] 4.0 mmol/L Normal 3.3-5.1 [facility] Comment on above: Order Comment: 215-2 Performed By: #### L 500.2500, L100.0500 ####[facility] [address] [place], [address] Sodium [Moles/Vol] 143 mmol/L Normal 133-145 [facility] Comment on above: Order Comment: 215-2 Performed By: #### L 500.2500, L100.0500 ####[facility] [address] [place], [address] Urea nitrogen [Mass/Vol] 41 mg/dL High 4-19 [facility] Comment on above: Order Comment: 215-2 Performed By: #### L 500.2500, L100.0500 ####[facility] [address] [place], [address] CBC-Complete Blood Cnt No Di ffon 02-18-2025 Erythrocyte distribution width (RBC) [Ratio] 13.8 % Normal 11.6-14.6 [facility] Comment on above: Order Comment: 215-2 Performed By: #### L 500.2500, L100.0500 ####[facility] [address] [place], [address] Hematocrit (Bld) [Volume fraction] 30.2 % Low 40-54 [facility] Comment on above: Order Comment: 215-2 Performed By: #### L 500.2500, L100.0500 ####[facility] [address] [place], [address] Hemoglobin (Bld) [Mass/Vol] 9.4 g/dL Low 13.0-16. 5 [facility] Comment on above: Order Comment: 215-2 Performed By: #### L 500.2500, L100.0500 ####[facility] [address] [place], [address] MCH (RBC) [Entitic mass] 27.2 pg Normal 27.0-32.0 [facility] Comment on above: Order Comment: 215-2 Performed By: #### L 500.2500, L100.0500 ####[facility] [address] [place], [address] MCHC (RBC) [Mass/Vol] 31.1 g/dL Low 32-36 [facility] Comment on above: Order Comment: 215-2 Performed By: #### L 500.2500, L100.0500 ####[facility] [address] [place], [address] MCV (RBC) [Entitic vol] 87.3 fL Normal 80-94 [facility] Comment on above: Order Comment: 215-2 Performed By: #### L 500.2500, L100.0500 ####[facility] [address] [place], [address] Platelet mean volume (Bld) [Entitic vol] 9.4 fL Normal 6.2-12.0 [facility] Comment on above: Order Comment: 215-2 Performed By: #### L 500.2500, L100.0500 ####[facility] [address] [place], [address] Platelets (Bld) [#/Vol] 368 10*3/uL Normal 150-450 [facility] Comment on above: Order Comment: 215-2 Performed By: #### L 500.2500, L100.0500 ####[facility] [address] [place], [address] RBC (Bld) [#/Vol] 3.46 10*6/uL Low 4.6-6.2 [facility] Comment on above: Order Comment: 215-2 Performed By: #### L 500.2500, L100.0500 ####[facility] [address] [place], [address] RDW SD 43.8 fl Normal 35.1-43.9 [facility] Comment on above: Order Comment: 215-2 Performed By: #### L 500.2500, L100.0500 ####[facility] [address] [place], [address] WBC (Bld) [#/Vol] 10.0 10*3/uL Normal 4.4-11.0 [facility] Comment on above: Order Comment: 215-2 Performed By: #### L 500.2500, L100.0500 ####[facility] [address] [place], [address] Carbon dioxide, total [Moles /volume] in Central venous bloodOrdered By: Walter Becker on 02-18-2025 CO2 [Moles/Vol] 27.8 mmol/L 21.0-32.0 [facility] Chloride assayOrdered By: Horner on 02-18-2025 Chloride [Moles/Vol] 105 mmol/L 98-108 [facility] Erythrocyte distribution wid th ratioOrdered By: Walter Becker on 02-18-2025 Erythrocyte distribution width (RBC) [Ratio] 13.8 % 11.6-14.6 [facility] Erythrocyte distribution wid th standard deviationOrdered By: Walter Becker on 02-18-2025 Erythrocyte distribution width (RBC) [Ratio] 43.8 fl 35.1-43.9 [facility] Glomerular filtration rate ( GFR) estimation/1.73 sq m using serum, plasma, or whole bOrdered By: Walter Becker on 02-18-2025 GFR/1.73 sq M.predicted among non-blacks MDRD (S/P/Bld) [Vol rate/Area] 51 mL/min/{1.73_m2} Low >60 [facility] Hematocrit Auto (Bld) [Volum e fraction]Ordered By: Walter Becker on 02-18-2025 Hematocrit (Bld) [Volume fraction] 30.2 % Low 40-54 [facility] Hemoglobin measurementOrdere d By: Walter Becker on 02-18-2025 Hemoglobin (Bld) [Mass/Vol] 9.4 g/dL Low 13.0-16. 5 [facility] MCV (mean corpuscular volume ) determinationOrdered By: Walter Becker on 02-18-2025 MCV (RBC) [Entitic vol] 87.3 fL 80-94 [facility] Mean corpuscular hemoglobin (MCH) determinationOrdered By: Walter Becker on 02-18-2025 MCH (RBC) [Entitic mass] 27.2 pg 27.0-32.0 [facility] Platelet countOrdered By: Horner on 02-18-2025 Platelets (Bld) [#/Vol] 368 10*3/uL 150-450 [place] [facility] Potassium measurement (mass/ volume)Ordered By: Walter Becker on 02-18-2025 Potassium (Unsp spec) [Mass/Vol] 4.0 mmol/L 3.3-5.1 [facility] RBC Auto (Bld) [#/Vol]Ordere d By: Walter Becker on 02-18-2025 RBC (Bld) [#/Vol] 3.46 10*6/uL Low 4.6-6.2 [facility] Serum creatinine measurement (mass/volume)Ordered By: Walter Becker on 02-18-2025 Creatinine [Mass/Vol] 1.42 mg/dL High 0.70-1.20 [facility] Serum glucose measurement (m ass/volume)Ordered By: Walter Becker on 02-18-2025 Glucose [Mass/Vol] 140 mg/dL High 70-99 [facility] Serum or plasma calcium antoine urement (mass/volume)Ordered By: Walter Becker on 02-18-2025 Calcium [Mass/Vol] 9.0 mg/dL 7.6-11.0 [facility] Serum or plasma urea nitroge n measurement (mass/volume)Ordered By: Walter Becker on 02-18-2025 Urea nitrogen [Mass/Vol] 41 mg/dL High 4-19 [facility] Sodium levelOrdered By: Walter Becker on 02-18-2025 Sodium [Moles/Vol] 143 mmol/L 133-145 [facility] White blood cell (WBC) count Ordered By: Walter Becker on 02-18-2025 WBC (Bld) [#/Vol] 10.0 10*3/uL 4.4-11.0 [facility] Anion gap in Serum or Plasma Ordered By: Walter Becker on 02-17-2025 Anion gap [Moles/Vol] 12 mmol/L 5-15 [facility] BUN/creatinine ratioOrdered By: Walter Becker on 02-17-2025 Urea nitrogen/Creatinine [Mass ratio] 26.5 mg/mg High 10-20 [facility] Basic Metabolic Profile (BMP )on 02-17-2025 BUN/CRE 26.5 RATIO High 10-20 [facility] Comment on above: Order Comment: 215-2 Performed By: #### L 100.0500, L500.2500 ####[facility] [address] [place], [address] Calcium [Mass/Vol] 9.1 mg/dL Normal 7.6-11.0 [facility] Comment on above: Order Comment: 215-2 Performed By: #### L 100.0500, L500.2500 ####[facility] [address] [place], [address] Chloride [Moles/Vol] 105 mmol/L Normal 98-108 [facility] Comment on above: Order Comment: 215-2 Performed By: #### L 100.0500, L500.2500 ####[facility] [address] [place], [address] CO2 [Moles/Vol] 26.3 mmol/L Normal 21.0-32.0 [facility] Comment on above: Order Comment: 215-2 Performed By: #### L 100.0500, L500.2500 ####[facility] [address] [place], [address] Creatinine [Mass/Vol] 1.48 mg/dL High 0.70-1.20 [facility] Comment on above: Order Comment: 215-2 Performed By: #### L 100.0500, L500.2500 ####[facility] [address] [place], [address] GAP 12 Normal 5-15 [facility] Comment on above: Order Comment: 215-2 Performed By: #### L 100.0500, L500.2500 ####[facility] [address] [place], [address] GFR/1.73 sq M.predicted among non-blacks MDRD (S/P/Bld) [Vol rate/Area] 48 mL/min/{1.73_m2} Low >60 [facility] Comment on above: Order Comment: 215-2 Result Comment: mL/m in/1.73m2 CKD-EPI Creatinine Equation (2020) Performed By: #### L 100.0500, L500.2500 ####[facility] [address] [place], [address] Glucose [Mass/Vol] 132 mg/dL High 70-99 [facility] Comment on above: Order Comment: 215-2 Performed By: #### L 100.0500, L500.2500 ####[facility] [address] [place], [address] Potassium [Moles/Vol] 3.7 mmol/L Normal 3.3-5.1 [facility] Comment on above: Order Comment: 215-2 Performed By: #### L 100.0500, L500.2500 ####[facility] [address] [place], [address] Sodium [Moles/Vol] 143 mmol/L Normal 133-145 [facility] Comment on above: Order Comment: 215-2 Performed By: #### L 100.0500, L500.2500 ####[facility] [address] [place], [address] Urea nitrogen [Mass/Vol] 39 mg/dL High 4-19 [facility] Comment on above: Order Comment: 215-2 Performed By: #### L 100.0500, L500.2500 ####[facility] [address] [place], [address] CBC-Complete Blood Cnt No Di ffon 02-17-2025 Erythrocyte distribution width (RBC) [Ratio] 13.8 % Normal 11.6-14.6 [facility] Comment on above: Order Comment: 215-2 Performed By: #### L 100.0500, L500.2500 ####[facility] [address] [place], [address] Hematocrit (Bld) [Volume fraction] 30.1 % Low 40-54 [facility] Comment on above: Order Comment: 215-2 Performed By: #### L 100.0500, L500.2500 ####[facility] [address] [place], [address] Hemoglobin (Bld) [Mass/Vol] 9.4 g/dL Low 13.0-16. 5 [facility] Comment on above: Order Comment: 215-2 Performed By: #### L 100.0500, L500.2500 ####[facility] [address] [place], [address] MCH (RBC) [Entitic mass] 27.4 pg Normal 27.0-32.0 [facility] Comment on above: Order Comment: 215-2 Performed By: #### L 100.0500, L500.2500 ####[facility] [address] [place], [address] MCHC (RBC) [Mass/Vol] 31.2 g/dL Low 32-36 [facility] Comment on above: Order Comment: 215-2 Performed By: #### L 100.0500, L500.2500 ####[facility] [address] [place], [address] MCV (RBC) [Entitic vol] 87.8 fL Normal 80-94 [facility] Comment on above: Order Comment: 215-2 Performed By: #### L 100.0500, L500.2500 ####[facility] [address] [place], [address] Platelet mean volume (Bld) [Entitic vol] 9.7 fL Normal 6.2-12.0 [facility] Comment on above: Order Comment: 215-2 Performed By: #### L 100.0500, L500.2500 ####[facility] [address] [place], [address] Platelets (Bld) [#/Vol] 385 10*3/uL Normal 150-450 [facility] Comment on above: Order Comment: 215-2 Performed By: #### L 100.0500, L500.2500 ####[facility] [address] [place], [address] RBC (Bld) [#/Vol] 3.43 10*6/uL Low 4.6-6.2 [facility] Comment on above: Order Comment: 215-2 Performed By: #### L 100.0500, L500.2500 ####[facility] [address] [place], [address] RDW SD 44.2 fl High 35.1-43.9 [facility] Comment on above: Order Comment: 215-2 Performed By: #### L 100.0500, L500.2500 ####[facility] [address] [place], [address] WBC (Bld) [#/Vol] 11.3 10*3/uL High 4.4-11.0 [facility] Comment on above: Order Comment: 215-2 Performed By: #### L 100.0500, L500.2500 ####[facility] [address] [place], [address] Carbon dioxide, total [Moles /volume] in Central venous bloodOrdered By: Walter Becker on 02-17-2025 CO2 [Moles/Vol] 26.3 mmol/L 21.0-32.0 [facility] Chloride assayOrdered By: Horner on 02-17-2025 Chloride [Moles/Vol] 105 mmol/L 98-108 [facility] Erythrocyte distribution wid th ratioOrdered By: Walter Becker on 02-17-2025 Erythrocyte distribution width (RBC) [Ratio] 13.8 % 11.6-14.6 [facility] Erythrocyte distribution wid th standard deviationOrdered By: Walter Becker on 02-17-2025 Erythrocyte distribution width (RBC) [Ratio] 44.2 fl High 35.1-43.9 [facility] Glomerular filtration rate ( GFR) estimation/1.73 sq m using serum, plasma, or whole bOrdered By: Walter Becker on 02-17-2025 GFR/1.73 sq M.predicted among non-blacks MDRD (S/P/Bld) [Vol rate/Area] 48 mL/min/{1.73_m2} Low >60 [facility] Hematocrit Auto (Bld) [Volum e fraction]Ordered By: Walter Becker on 02-17-2025 Hematocrit (Bld) [Volume fraction] 30.1 % Low 40-54 [facility] Hemoglobin measurementOrdere d By: Walter Becker on 02-17-2025 Hemoglobin (Bld) [Mass/Vol] 9.4 g/dL Low 13.0-16. 5 [facility] MCV (mean corpuscular volume ) determinationOrdered By: Walter Becker on 02-17-2025 MCV (RBC) [Entitic vol] 87.8 fL 80-94 [facility] Mean corpuscular hemoglobin (MCH) determinationOrdered By: Walter Becker on 02-17-2025 MCH (RBC) [Entitic mass] 27.4 pg 27.0-32.0 [facility] Platelet countOrdered By: Horner on 02-17-2025 Platelets (Bld) [#/Vol] 385 10*3/uL 150-450 [facility] Potassium measurement (mass/ volume)Ordered By: Walter Becker on 02-17-2025 Potassium (Unsp spec) [Mass/Vol] 3.7 mmol/L 3.3-5.1 [facility] RBC Auto (Bld) [#/Vol]Ordere d By: Walter Becker on 02-17-2025 RBC (Bld) [#/Vol] 3.43 10*6/uL Low 4.6-6.2 [facility] Serum creatinine measurement (mass/volume)Ordered By: Walter Becker on 02-17-2025 Creatinine [Mass/Vol] 1.48 mg/dL High 0.70-1.20 [facility] Serum glucose measurement (m ass/volume)Ordered By: Walter Becker on 02-17-2025 Glucose [Mass/Vol] 132 mg/dL High 70-99 [facility] Serum or plasma calcium antoine urement (mass/volume)Ordered By: Walter Becker on 02-17-2025 Calcium [Mass/Vol] 9.1 mg/dL 7.6-11.0 [facility] Serum or plasma urea nitroge n measurement (mass/volume)Ordered By: Walter Becker on 02-17-2025 Urea nitrogen [Mass/Vol] 39 mg/dL High 4-19 [facility] Sodium levelOrdered By: Walter Becker on 02-17-2025 Sodium [Moles/Vol] 143 mmol/L 133-145 [facility] White blood cell (WBC) count Ordered By: Walter Becker on 02-17-2025 WBC (Bld) [#/Vol] 11.3 10*3/uL High 4.4-11.0 [facility] Anion gap in Serum or Plasma Ordered By: Walter Becker on 02-16-2025 Anion gap [Moles/Vol] 11 mmol/L 5-15 [facility] BUN/creatinine ratioOrdered By: Walter Becker on 02-16-2025 Urea nitrogen/Creatinine [Mass ratio] 25.8 mg/mg High 10-20 [facility] Basic Metabolic Profile (BMP )on 02-16-2025 BUN/CRE 25.8 RATIO High 10-20 [facility] Comment on above: Order Comment: 215.2 Performed By: #### L 500.2500, L100.0500 ####[facility] [address] [place], [address] Calcium [Mass/Vol] 9.0 mg/dL Normal 7.6-11.0 [facility] Comment on above: Order Comment: 215.2 Performed By: #### L 500.2500, L100.0500 ####[facility] [address] [place], [address] Chloride [Moles/Vol] 104 mmol/L Normal 98-108 [facility] Comment on above: Order Comment: 215.2 Performed By: #### L 500.2500, L100.0500 ####[facility] [address] [place], [address] CO2 [Moles/Vol] 26.2 mmol/L Normal 21.0-32.0 [facility] Comment on above: Order Comment: 215.2 Performed By: #### L 500.2500, L100.0500 ####[facility] [address] [place], [address] Creatinine [Mass/Vol] 1.46 mg/dL High 0.70-1.20 [facility] Comment on above: Order Comment: 215.2 Performed By: #### L 500.2500, L100.0500 ####[facility] [address] [place], [address] GAP 11 Normal 5-15 [facility] Comment on above: Order Comment: 215.2 Performed By: #### L 500.2500, L100.0500 ####[facility] [address] [place], [address] GFR/1.73 sq M.predicted among non-blacks MDRD (S/P/Bld) [Vol rate/Area] 49 mL/min/{1.73_m2} Low >60 [facility] Comment on above: Order Comment: 215.2 Result Comment: mL/m in/1.73m2 CKD-EPI Creatinine Equation (2020) Performed By: #### L 500.2500, L100.0500 ####[facility] [address] [place], [address] Glucose [Mass/Vol] 137 mg/dL High 70-99 [facility] Comment on above: Order Comment: 215.2 Performed By: #### L 500.2500, L100.0500 ####[facility] [address] [place], [address] Potassium [Moles/Vol] 3.8 mmol/L Normal 3.3-5.1 [facility] Comment on above: Order Comment: 215.2 Performed By: #### L 500.2500, L100.0500 ####[facility] [address] [place], [address] Sodium [Moles/Vol] 142 mmol/L Normal 133-145 [facility] Comment on above: Order Comment: 215.2 Performed By: #### L 500.2500, L100.0500 ####[facility] [address] [place], [address] Urea nitrogen [Mass/Vol] 38 mg/dL High 4-19 [facility] Comment on above: Order Comment: 215.2 Performed By: #### L 500.2500, L100.0500 ####[facility] [address] [place], [address] CBC-Complete Blood Cnt No Di ffon 02-16-2025 Erythrocyte distribution width (RBC) [Ratio] 13.6 % Normal 11.6-14.6 [facility] Comment on above: Order Comment: 215.2 Performed By: #### L 500.2500, L100.0500 ####[facility] [address] [place], [address] Hematocrit (Bld) [Volume fraction] 29.5 % Low 40-54 [facility] Comment on above: Order Comment: 215.2 Performed By: #### L 500.2500, L100.0500 ####[facility] [address] [place], [address] Hemoglobin (Bld) [Mass/Vol] 9.3 g/dL Low 13.0-16. 5 [facility] Comment on above: Order Comment: 215.2 Performed By: #### L 500.2500, L100.0500 ####[facility] [address] [place], [address] MCH (RBC) [Entitic mass] 27.1 pg Normal 27.0-32.0 [facility] Comment on above: Order Comment: 215.2 Performed By: #### L 500.2500, L100.0500 ####[facility] [address] [place], [address] MCHC (RBC) [Mass/Vol] 31.5 g/dL Low 32-36 [facility] Comment on above: Order Comment: 215.2 Performed By: #### L 500.2500, L100.0500 ####[facility] [address] [place], [address] MCV (RBC) [Entitic vol] 86.0 fL Normal 80-94 [facility] Comment on above: Order Comment: 215.2 Performed By: #### L 500.2500, L100.0500 ####[facility] [address] [place], [address] Platelet mean volume (Bld) [Entitic vol] 9.4 fL Normal 6.2-12.0 [facility] Comment on above: Order Comment: 215.2 Performed By: #### L 500.2500, L100.0500 ####[facility] [address] [place] [place], [address] Platelets (Bld) [#/Vol] 360 10*3/uL Normal 150-450 [facility] Comment on above: Order Comment: 215.2 Performed By: #### L 500.2500, L100.0500 ####[facility] [address] [place], [address] RBC (Bld) [#/Vol] 3.43 10*6/uL Low 4.6-6.2 [facility] Comment on above: Order Comment: 215.2 Performed By: #### L 500.2500, L100.0500 ####[facility] [address] [place], [address] RDW SD 42.7 fl Normal 35.1-43.9 [facility] Comment on above: Order Comment: 215.2 Performed By: #### L 500.2500, L100.0500 ####[facility] [address] [place], [address] WBC (Bld) [#/Vol] 12.5 10*3/uL High 4.4-11.0 [facility] Comment on above: Order Comment: 215.2 Performed By: #### L 500.2500, L100.0500 ####[facility] [address] [place], [address] Carbon dioxide, total [Moles /volume] in Central venous bloodOrdered By: Walter Becker on 02-16-2025 CO2 [Moles/Vol] 26.2 mmol/L 21.0-32.0 [facility] Chloride assayOrdered By: Horner on 02-16-2025 Chloride [Moles/Vol] 104 mmol/L 98-108 [facility] Erythrocyte distribution wid th ratioOrdered By: Walter Becker on 02-16-2025 Erythrocyte distribution width (RBC) [Ratio] 13.6 % 11.6-14.6 [facility] Erythrocyte distribution wid th standard deviationOrdered By: Walter Becker on 02-16-2025 Erythrocyte distribution width (RBC) [Ratio] 42.7 fl 35.1-43.9 [facility] Glomerular filtration rate ( GFR) estimation/1.73 sq m using serum, plasma, or whole bOrdered By: Walter Becker on 02-16-2025 GFR/1.73 sq M.predicted among non-blacks MDRD (S/P/Bld) [Vol rate/Area] 49 mL/min/{1.73_m2} Low >60 [facility] Hematocrit Auto (Bld) [Volum e fraction]Ordered By: Walter Becker on 02-16-2025 Hematocrit (Bld) [Volume fraction] 29.5 % Low 40-54 [facility] Hemoglobin measurementOrdere d By: Walter Becker on 02-16-2025 Hemoglobin (Bld) [Mass/Vol] 9.3 g/dL Low 13.0-16. 5 [facility] MCV (mean corpuscular volume ) determinationOrdered By: Walter Becker on 02-16-2025 MCV (RBC) [Entitic vol] 86.0 fL 80-[address] [facility] Mean corpuscular hemoglobin (MCH) determinationOrdered By: Walter Becker on 02-16-2025 MCH (RBC) [Entitic mass] 27.1 pg 27.0-32.0 [facility] Platelet countOrdered By: Hroner on 02-16-2025 Platelets (Bld) [#/Vol] 360 10*3/uL 150-450 [facility] Potassium measurement (mass/ volume)Ordered By: Walter Becker on 02-16-2025 Potassium (Unsp spec) [Mass/Vol] 3.8 mmol/L 3.3-5.1 [facility] RBC Auto (Bld) [#/Vol]Ordere d By: Walter Becker on 02-16-2025 RBC (Bld) [#/Vol] 3.43 10*6/uL Low 4.6-6.2 [facility] Serum creatinine measurement (mass/volume)Ordered By: Walter Becker on 02-16-2025 Creatinine [Mass/Vol] 1.46 mg/dL High 0.70-1.20 [facility] Serum glucose measurement (m ass/volume)Ordered By: Walter Becker on 02-16-2025 Glucose [Mass/Vol] 137 mg/dL High 70-99 [facility] Serum or plasma calcium antoine urement (mass/volume)Ordered By: Walter Becker on 02-16-2025 Calcium [Mass/Vol] 9.0 mg/dL 7.6-11.0 [facility] Serum or plasma urea nitroge n measurement (mass/volume)Ordered By: Walter Becker on 02-16-2025 Urea nitrogen [Mass/Vol] 38 mg/dL High 4-19 [facility] Sodium levelOrdered By: Walter Becker on 02-16-2025 Sodium [Moles/Vol] 142 mmol/L 133-145 [facility] White blood cell (WBC) count Ordered By: Walter Becker on 02-16-2025 WBC (Bld) [#/Vol] 12.5 10*3/uL High 4.4-11.0 [facility] Anion gap in Serum or Plasma Ordered By: Walter Becker on 02-15-2025 Anion gap [Moles/Vol] 12 mmol/L 5-15 [facility] Automated blood erythrocyte countOrdered By: Walter Becker on 02-15-2025 RBC (Bld) [#/Vol] 3.38 10*6/uL Low 4.6-6.2 [facility] Comment on above: Order Comment: 215-2 Performed By: #### L 100.0500, L500.2500 ####[facility] [address] [place], [address] Automated blood hematocrit ( percentage)Ordered By: Walter Becker on 02-15-2025 Hematocrit (Bld) [Volume fraction] 29.3 % Low 40-54 [facility] Comment on above: Order Comment: 215-2 Performed By: #### L 100.0500, L500.2500 ####[facility] [address] [place], [address] BUN/creatinine ratioOrdered By: Walter Becker on 02-15-2025 Urea nitrogen/Creatinine [Mass ratio] 24.7 mg/mg High 10-20 [facility] Basic Metabolic Profile (BMP )on 02-15-2025 BUN/CRE 24.7 RATIO High 10-20 [facility] Comment on above: Order Comment: 215-2 Performed By: #### L 100.0500, L500.2500 ####[facility] [address] [place], [address] Calcium [Mass/Vol] 9.0 mg/dL Normal 7.6-11.0 [facility] Comment on above: Order Comment: 215-2 Performed By: #### L 100.0500, L500.2500 ####[facility] [address] [place], [address] Chloride [Moles/Vol] 105 mmol/L Normal 98-108 [facility] Comment on above: Order Comment: 215-2 Performed By: #### L 100.0500, L500.2500 ####[facility] [address] [place], [address] CO2 [Moles/Vol] 24.2 mmol/L Normal 21.0-32.0 [facility] Comment on above: Order Comment: 215-2 Performed By: #### L 100.0500, L500.2500 ####[facility] [address] [place], [address] Creatinine [Mass/Vol] 1.46 mg/dL High 0.70-1.20 [facility] Comment on above: Order Comment: 215-2 Performed By: #### L 100.0500, L500.2500 ####[facility] [address] [place], [address] GAP 12 Normal 5-15 [facility] Comment on above: Order Comment: 215-2 Performed By: #### L 100.0500, L500.2500 ####[facility] [address] [place], [address] GFR/1.73 sq M.predicted among non-blacks MDRD (S/P/Bld) [Vol rate/Area] 49 mL/min/{1.73_m2} Low >60 [facility] Comment on above: Order Comment: 215-2 Result Comment: mL/m in/1.73m2 CKD-EPI Creatinine Equation (2020) Performed By: #### L 100.0500, L500.2500 ####[facility] [address] [place], [address] Glucose [Mass/Vol] 116 mg/dL High 70-99 [facility] Comment on above: Order Comment: 215-2 Performed By: #### L 100.0500, L500.2500 ####[facility] [address] [place], [address] Potassium [Moles/Vol] 3.7 mmol/L Normal 3.3-5.1 [facility] Comment on above: Order Comment: 215-2 Performed By: #### L 100.0500, L500.2500 ####[facility] [address] [place], [address] Sodium [Moles/Vol] 141 mmol/L Normal 133-145 [facility] Comment on above: Order Comment: 215-2 Performed By: #### L 100.0500, L500.2500 ####[facility] [address] [place], [address] Urea nitrogen [Mass/Vol] 36 mg/dL High 4-19 [facility] Comment on above: Order Comment: 215-2 Performed By: #### L 100.0500, L500.2500 ####[facility] [address] [place], [address] CBC-Complete Blood Cnt No Di ffon 02-15-2025 MCHC (RBC) [Mass/Vol] 31.7 g/dL Low 32-36 [facility] Comment on above: Order Comment: 215-2 Performed By: #### L 100.0500, L500.2500 ####[facility] [address] [place], [address] Platelet mean volume (Bld) [Entitic vol] 9.6 fL Normal 6.2-12.0 [facility] Comment on above: Order Comment: 215-2 Performed By: #### L 100.0500, L500.2500 ####[facility] [address] [place], [address] RDW SD 42.6 fl Normal 35.1-43.9 [facility] Comment on above: Order Comment: 215-2 Performed By: #### L 100.0500, L500.2500 ####[facility] [address] [place], [place], [id number] Carbon dioxide, total [Moles /volume] in Central venous bloodOrdered By: Walter Becker on 02-15-2025 CO2 [Moles/Vol] 24.2 mmol/L 21.0-32.0 [facility] Chloride assayOrdered By: Horner on 02-15-2025 Chloride [Moles/Vol] 105 mmol/L 98-108 [facility] Erythrocyte distribution wid th ratioOrdered By: Walter Becker on 02-15-2025 Erythrocyte distribution width (RBC) [Ratio] 13.4 % Normal 11.6-14.6 [facility] Comment on above: Order Comment: 215-2 Performed By: #### L 100.0500, L500.2500 ####[facility] [address] [place], [place], [address] Erythrocyte distribution wid th standard deviationOrdered By: Walter Becker on 02-15-2025 Erythrocyte distribution width (RBC) [Ratio] 42.6 fl 35.1-43.9 [facility] Glomerular filtration rate ( GFR) estimation/1.73 sq m using serum, plasma, or whole bOrdered By: Walter Becker on 02-15-2025 GFR/1.73 sq M.predicted among non-blacks MDRD (S/P/Bld) [Vol rate/Area] 49 mL/min/{1.73_m2} Low >60 [facility] Hemoglobin measurementOrdere d By: Walter Becker on 02-15-2025 Hemoglobin (Bld) [Mass/Vol] 9.3 g/dL Low 13.0-16. 5 [facility] Comment on above: Order Comment: 215-2 Performed By: #### L 100.0500, L500.2500 ####[facility] [address] [place], [place], [address] MCV (mean corpuscular volume ) determinationOrdered By: Walter Becker on 02-15-2025 MCV (RBC) [Entitic vol] 86.7 fL Normal 80-94 [facility] Comment on above: Order Comment: 215-2 Performed By: #### L 100.0500, L500.2500 ####[facility] [address] [place], [address] Mean corpuscular hemoglobin (MCH) determinationOrdered By: Walter Becker on 02-15-2025 MCH (RBC) [Entitic mass] 27.5 pg Normal 27.0-32.0 [facility] Comment on above: Order Comment: 215-2 Performed By: #### L 100.0500, L500.2500 ####[facility] [address] [place], [address] Platelet countOrdered By: Horner on 02-15-2025 Platelets (Bld) [#/Vol] 361 10*3/uL Normal 150-450 [facility] Comment on above: Order Comment: 215-2 Performed By: #### L 100.0500, L500.2500 ####[facility] [address] [place], [address] Potassium measurement (mass/ volume)Ordered By: Walter Becker on 02-15-2025 Potassium (Unsp spec) [Mass/Vol] 3.7 mmol/L 3.3-5.1 [facility] Serum creatinine measurement (mass/volume)Ordered By: Walter Becker on 02-15-2025 Creatinine [Mass/Vol] 1.46 mg/dL High 0.70-1.20 [facility] Serum glucose measurement (m ass/volume)Ordered By: Walter Becker on 02-15-2025 Glucose [Mass/Vol] 116 mg/dL High 70-99 [facility] Serum or plasma calcium antoine urement (mass/volume)Ordered By: Walter Becker on 02-15-2025 Calcium [Mass/Vol] 9.0 mg/dL 7.6-11.0 [facility] Serum or plasma urea nitroge n measurement (mass/volume)Ordered By: Walter Becker on 02-15-2025 Urea nitrogen [Mass/Vol] 36 mg/dL High 4-19 [facility] Sodium levelOrdered By: Walter Becker on 02-15-2025 Sodium [Moles/Vol] 141 mmol/L 133-145 [facility] White blood cell (WBC) count Ordered By: Walter Becker on 02-15-2025 WBC (Bld) [#/Vol] 11.7 10*3/uL High 4.4-11.0 [facility] Comment on above: Order Comment: 215-2 Performed By: #### L 100.0500, L500.2500 ####[facility] [address] [place], [place], [address] Absolute lymphocyte countOrd ered By: Hugo Cervantes on 02-11-2025 Lymphocytes Auto (Unsp spec) [#/Vol] 1.12 10*3/uL 0.83-4.51 [facility] Anion gap in Serum or Plasma Ordered By: Hugo Cervantes on 02-11-2025 Anion gap [Moles/Vol] 14 mmol/L 5-15 [facility] Automated lymphocyte count a s percentage of total leukocytesOrdered By: Hugo Cervantes on 02-11-2025 Lymphocytes/100 WBC Auto (Unsp spec) 9.9 % Low 19-41 [facility] BUN/creatinine ratioOrdered By: Hugo Cervantes on 02-11-2025 Urea nitrogen/Creatinine [Mass ratio] 15.3 mg/mg 10- [facility] Basic Metabolic Profile (BMP )on 02-11-2025 BUN/CRE 15.3 RATIO Normal - [facility] Comment on above: Result Comment: NICOL AKHTAR, SPOKE WITH KT Performed By: #### L 100.0100, L500.2500 ####[facility] [address] [place], [place], [id number] Calcium [Mass/Vol] 9.0 mg/dL Normal 7.6-11.0 [facility] Comment on above: Result Comment: NICOL AKHTAR, SPOKE WITH KT Performed By: #### L 100.0100, L500.2500 ####[facility] [address] [place], [address] Chloride [Moles/Vol] 109 mmol/L High 98-108 [facility] Comment on above: Result Comment: NICOL HERMILO, SPOKE WITH KT Performed By: #### L 100.0100, L500.2500 ####[facility] [address] [place], [address] CO2 [Moles/Vol] 22.1 mmol/L Normal 21.0-32.0 [facility] Comment on above: Result Comment: NICOL AKHTAR, SPOKE WITH KT Performed By: #### L 100.0100, L500.2500 ####[facility] [address] [place], [address] Creatinine [Mass/Vol] 1.55 mg/dL High 0.70-1.20 [facility] Comment on above: Result Comment: NICOL AKHTAR, SPOKE WITH KT Performed By: #### L 100.0100, L500.2500 ####[facility] [address] [place], [address] ECRCL 52.57 ml/min Normal 50-250 [facility] Comment on above: Performed By: #### L 100.0100, L500.2500 ####[facility] [address] [place], [address] GAP 14 Normal 5-15 [facility] Comment on above: Result Comment: NICOL AKHTAR, SPOKE WITH KT Performed By: #### L 100.0100, L500.2500 ####[facility] [address] [place], [address] GFR/1.73 sq M.predicted among non-blacks MDRD (S/P/Bld) [Vol rate/Area] 46 mL/min/{1.73_m2} Low >60 [facility] Comment on above: Result Comment: mL/m in/1.73m2 CKD-EPI Creatinine Equation (2020) Performed By: #### L 100.0100, L500.2500 ####[facility] [address] [place], [address] Glucose [Mass/Vol] 155 mg/dL High 70-99 [facility] Comment on above: Result Comment: NICOL AKHTAR, SPOKE WITH KT Performed By: #### L 100.0100, L500.2500 ####[facility] [address] [place], [address] Potassium [Moles/Vol] 3.7 mmol/L Normal 3.3-5.1 [facility] Comment on above: Result Comment: NICOL AKHTAR, SPOKE WITH KT Performed By: #### L 100.0100, L500.2500 ####[facility] [address] [place], [address] Sodium [Moles/Vol] 145 mmol/L Normal 133-145 [facility] Comment on above: Result Comment: NICOL AKHTAR, SPOKE WITH KT Performed By: #### L 100.0100, L500.2500 ####[facility] [address] [place], [address] Urea nitrogen [Mass/Vol] 24 mg/dL High 4-19 [facility] Comment on above: Result Comment: NICOL AKHTAR, SPOKE WITH KT Performed By: #### L 100.0100, L500.2500 ####[facility] [address] [place], [address] Basophil percentageOrdered B y: Hugo Cervantes on 02-11-2025 Basophils/100 WBC (Bld) 0.5 % 0-1 [facility] Bedside Glucoseon 02-11-2025 FINGERSTICK GLU 187 mg/dL High 74-106 [facility] Comment on above: Result Comment: JAZ BRANDON OF PATIENT CARE PER NURSING PROTOCOL Performed By: #### L 501.080 ####[facility] [address] [place], [address] FINGERSTICK GLU 220 mg/dL High 74-106 [facility] Comment on above: Result Comment: JAZ GEMENT OF PATIENT CARE PER NURSING PROTOCOL Performed By: #### L 501.080 ####[facility] [address] [place], [address] FINGERSTICK GLU 137 mg/dL High 74-106 [facility] Comment on above: Result Comment: JAZ GEMENT OF PATIENT CARE PER NURSING PROTOCOL Performed By: #### L 501.080 ####[facility] [address] [place], [address] CBC W/Diff, Automatedon 07-3 -2024 Absolute Lymph 1.12 X10 3/uL Normal 0.83-4.51 [facility] Comment on above: Performed By: #### L 100.0100 ####[facility] [address] [place], [address] Absolute Neut 8.7 X10 3/uL High 2.0-7.7 [facility] Comment on above: Performed By: #### L 100.0100 ####[facility] [address] [place], [address] Basophils/100 WBC (Bld) 0.5 % Normal 0-1 [facility] Comment on above: Performed By: #### L 100.0100 ####[facility] [address] [place], [address] Eosinophils/100 WBC (Bld) 4.1 % Normal 0-5 [facility] Comment on above: Performed By: #### L 100.0100 ####[facility] [address] [place], [address] Erythrocyte distribution width (RBC) [Ratio] 13.7 % Normal 11.6-14.6 [facility] Comment on above: Performed By: #### L 100.0100 ####[facility] [address] [place], [address] Hematocrit (Bld) [Volume fraction] 31.3 % Low 40-54 [facility] Comment on above: Performed By: #### L 100.0100 ####[facility] [address] [place], [address] Hemoglobin (Bld) [Mass/Vol] 9.9 g/dL Low 13.0-16. 5 [facility] Comment on above: Performed By: #### L 100.0100 ####[facility] [address] [place], [address] IG% 2.100 High 0.0-0.9 [facility] Comment on above: Result Comment: IG% - Immature Granulocytes (promyelocytes, myelocytes andmetamyelocytes) > 1% indicates that a LEFT SHIFT is Present. Performed By: #### L 100.0100 ####[facility] [address] [place], [address] Lymphocytes/100 WBC (Bld) 9.9 % Low 19-41 [facility] Comment on above: Performed By: #### L 100.0100 ####[facility] [address] [place], [address] MCH (RBC) [Entitic mass] 27.6 pg Normal 27.0-32.0 [facility] Comment on above: Performed By: #### L 100.0100 ####[facility] [address] [place], [address] MCHC (RBC) [Mass/Vol] 31.6 g/dL Low 32-36 [facility] Comment on above: Performed By: #### L 100.0100 ####[facility] [address] [place], [address] MCV (RBC) [Entitic vol] 87.2 fL Normal 80-94 [facility] Comment on above: Performed By: #### L 100.0100 ####[facility] [address] [place], [address] Monocytes/100 WBC (Bld) 7.1 % Normal 0-10 [facility] Comment on above: Performed By: #### L 100.0100 ####[facility] [address] [place], [address] Neutrophils/100 WBC (Bld) 76.3 % High 47-70 [facility] Comment on above: Performed By: #### L 100.0100 ####[facility] [address] [place], [address] Nucleated RBC (Bld) [#/Vol] 0 10*3/uL Normal 0-5 [facility] Comment on above: Performed By: #### L 100.0100 ####[facility] [address] [place], [address] Platelet mean volume (Bld) [Entitic vol] 9.1 fL Normal 6.2-12.0 [facility] Comment on above: Performed By: #### L 100.0100 ####[facility] [address] [place], [address] Platelets (Bld) [#/Vol] 308 10*3/uL Normal 150-450 [facility] Comment on above: Performed By: #### L 100.0100 ####[facility] [address] [place], [address] RBC (Bld) [#/Vol] 3.59 10*6/uL Low 4.6-6.2 [facility] Comment on above: Performed By: #### L 100.0100 ####[facility] [address] [place], [address] RDW SD 44.1 fl High 35.1-43.9 [facility] Comment on above: Performed By: #### L 100.0100 ####[facility] [address] [place], [address] WBC (Bld) [#/Vol] 11.3 10*3/uL High 4.4-11.0 [facility] Comment on above: Performed By: #### L 100.0100 ####[facility] [address] [place], [address] Absolute Neut Normal 2.0-7.7 [facility] Comment on above: Result Comment: DUPL ICATE Performed By: #### L 100.0100, L500.2500 ####[facility] [address] [place], [address] HCT Normal 40-54 [facility] Comment on above: Result Comment: DUPL ICATE Performed By: #### L 100.0100, L500.2500 ####[facility] [address] [place], [address] HGB Normal 13.0-16.5 [facility] Comment on above: Result Comment: DUPL ICATE Performed By: #### L 100.0100, L500.2500 ####[facility] [address] [place], [address] MCH Normal 27.0-32.0 [facility] Comment on above: Result Comment: DUPL ICATE Performed By: #### L 100.0100, L500.2500 ####[facility] [address] [place], [address] MCHC Normal 32-36 [facility] Comment on above: Result Comment: DUPL ICATE Performed By: #### L 100.0100, L500.2500 ####[facility] [address] [place], [address] MCV Normal 80-94 [facility] Comment on above: Result Comment: DUPL ICATE Performed By: #### L 100.0100, L500.2500 ####[facility] [address] [place], [address] NEUT% Normal 47-70 [facility] Comment on above: Result Comment: DUPL ICATE Performed By: #### L 100.0100, L500.2500 ####[facility] [address] [place], [address] PLT Normal 150-450 [facility] Comment on above: Result Comment: DUPL ICATE Performed By: #### L 100.0100, L500.2500 ####[facility] [address] [place], [address] RBC Normal 4.6-6.2 [facility] Comment on above: Result Comment: DUPL ICATE Performed By: #### L 100.0100, L500.2500 ####[facility] [address] [place], [address] RDW CV Normal 11.6-14.6 [facility] Comment on above: Result Comment: DUPL ICATE Performed By: #### L 100.0100, L500.2500 ####[facility] [address] [place], [address] RDW SD Normal 35.1-43.9 [facility] Comment on above: Result Comment: DUPL ICATE Performed By: #### L 100.0100, L500.2500 ####[facility] [address] [place], [address] WBC Normal 4.4-11.0 [facility] Comment on above: Result Comment: DUPL ICATE Performed By: #### L 100.0100, L500.2500 ####[facility] [address] [place], [address] Carbon dioxide, total [Moles /volume] in Central venous bloodOrdered By: Hugo Cervantes on 02-11-2025 CO2 [Moles/Vol] 22.1 mmol/L 21.0-32.0 [facility] Chloride assayOrdered By: Shala Cervantes on 02-11-2025 Chloride [Moles/Vol] 109 mmol/L High 98-108 [facility] Electrocardiogram reportOrde red By: Júnior Chandra on 02-11-2025 EKG study [facility] Other Phone: Eosinophil percentageOrdered By: Hugo Cervantes on 02-11-2025 Eosinophils/100 WBC (Bld) 4.1 % 0-5 [facility] Erythrocyte distribution wid th ratioOrdered By: Hugo Cervantes on 02-11-2025 Erythrocyte distribution width (RBC) [Ratio] 13.7 % 11.6-14.6 [facility] Erythrocyte distribution wid th standard deviationOrdered By: Hugo Cervantes on 02-11-2025 Erythrocyte distribution width (RBC) [Ratio] 44.1 fl High 35.1-43.9 [facility] Glomerular filtration rate ( GFR) estimation/1.73 sq m using serum, plasma, or whole bOrdered By: Hugo Cervantes on 02-11-2025 GFR/1.73 sq M.predicted among non-blacks MDRD (S/P/Bld) [Vol rate/Area] 46 mL/min/{1.73_m2} Low >60 [facility] deOrdered By: Hugo Cervantes on 02-11-2025 Glucose [Mass/Vol] 187 mg/dL High 74-106 [facility] Hematocrit Auto (Bld) [Volum e fraction]Ordered By: Hugo Cervantes on 02-11-2025 Hematocrit (Bld) [Volume fraction] 31.3 % Low 40-54 [facility] Hemoglobin measurementOrdere d By: Hugo Cervantes on 02-11-2025 Hemoglobin (Bld) [Mass/Vol] 9.9 g/dL Low 13.0-16. 5 [facility] Immature granulocytes/100 WB C Auto (Bld)Ordered By: Hugo Cervantes on 02-11-2025 Immature granulocytes/100 WBC (Bld) 2.100 % High 0.0-0.9 [facility] MCV (mean corpuscular volume ) determinationOrdered By: Hugo Cervantes on 02-11-2025 MCV (RBC) [Entitic vol] 87.2 fL 80-94 [facility] Mean corpuscular hemoglobin (MCH) determinationOrdered By: Hugo Cervantes on 02-11-2025 MCH (RBC) [Entitic mass] 27.6 pg 27.0-32.0 [facility] Monocyte percentageOrdered B y: Hugo Cervantes on 02-11-2025 Monocytes/100 WBC (Bld) 7.1 % 0-10 [facility] Neutrophil percentageOrdered By: Hugo Cervantes on 02-11-2025 Neutrophils/100 WBC (Bld) 76.3 % High 47-70 [facility] Platelet countOrdered By: Shala Cervantes on 02-11-2025 Platelets (Bld) [#/Vol] 308 10*3/uL 150-450 [facility] Potassium measurement (mass/ volume)Ordered By: Hugo Cervantes on 02-11-2025 Potassium (Unsp spec) [Mass/Vol] 3.7 mmol/L 3.3-5.1 [facility] RBC Auto (Bld) [#/Vol]Ordere d By: Hugo Cervantes on 02-11-2025 RBC (Bld) [#/Vol] 3.59 10*6/uL Low 4.6-6.2 [facility] Serum creatinine measurement (mass/volume)Ordered By: Hugo Cervantes on 02-11-2025 Creatinine [Mass/Vol] 1.55 mg/dL High 0.70-1.20 [facility] Serum glucose measurement (m ass/volume)Ordered By: Hugo Cervantes on 02-11-2025 Glucose [Mass/Vol] 155 mg/dL High 70-99 [facility] Serum or plasma calcium antoine urement (mass/volume)Ordered By: Hugo Cervantes on 02-11-2025 Calcium [Mass/Vol] 9.0 mg/dL 7.6-11.0 [facility] Serum or plasma urea nitroge n measurement (mass/volume)Ordered By: Hugo Cervantes on 02-11-2025 Urea nitrogen [Mass/Vol] 24 mg/dL High 4-19 [facility] Sodium levelOrdered By: Tunde Cervantes on 02-11-2025 Sodium [Moles/Vol] 145 mmol/L 133-145 [facility] White blood cell (WBC) count Ordered By: Hugo Cervantes on 02-11-2025 WBC (Bld) [#/Vol] 11.3 10*3/uL High 4.4-11.0 [facility] 12 Lead EKGon 02-10-2025 12 Lead EKG Normal [facility] ACT Activated Clotting Timeo n 02-10-2025 ACTk CLOT TIME 205 sec High 74-137 [facility] Comment on above: Performed By: #### L 9100.0100 ####[facility] [address] [place], [address] ACTk CLOT TIME 222 sec High 74-137 [facility] Comment on above: Performed By: #### L 9100.0100 ####[facility] [address] [place], [address] AST(SGOT)on 02-10-2025 AST [Catalytic activity/Vol] 15 U/L Normal <=37 [facility] Comment on above: Performed By: #### L 300.4310, L300.3900, L501.4100 ####[facility] [address] [place], [address] Activated partial thrombopla stin time (aPTT) in platelet poor plasma by coagulation aOrdered By: Aneesh Ac on 02-10-2025 aPTT Coag (PPP) [Time] 33.4 s 24.1-36.2 [facility] Alanine Aminotransferas (SGP T)on 02-10-2025 ALT [Catalytic activity/Vol] 31 U/L Normal <=46 [facility] Comment on above: Performed By: #### L 501.4405, L500.2500, L100.0100 ####[facility] [address] [place], [address] Basic Metabolic Profile (BMP )on 02-10-2025 BUN/CRE 16.2 RATIO Normal 10-20 [facility] Comment on above: Performed By: #### L 501.4405, L500.2500, L100.0100 ####[facility] [address] [place], [address] Calcium [Mass/Vol] 9.1 mg/dL Normal 7.6-11.0 [facility] Comment on above: Performed By: #### L 501.4405, L500.2500, L100.0100 ####[facility] [address] [place], [address] Chloride [Moles/Vol] 108 mmol/L Normal 98-108 [facility] Comment on above: Performed By: #### L 501.4405, L500.2500, L100.0100 ####[facility] [address] [place], [address] CO2 [Moles/Vol] 23.0 mmol/L Normal 21.0-32.0 [facility] Comment on above: Performed By: #### L 501.4405, L500.2500, L100.0100 ####[facility] [address] [place], [address] Creatinine [Mass/Vol] 1.72 mg/dL High 0.70-1.20 [facility] Comment on above: Performed By: #### L 501.4405, L500.2500, L100.0100 ####[facility] [address] [place], [address] ECRCL 47.94 ml/min Low 50-250 [facility] Comment on above: Performed By: #### L 501.4405, L500.2500, L100.0100 ####[facility] [address] [place], [address] GAP 12 Normal 5-15 [facility] Comment on above: Performed By: #### L 501.4405, L500.2500, L100.0100 ####[facility] [address] [place] [place], [address] GFR/1.73 sq M.predicted among non-blacks MDRD (S/P/Bld) [Vol rate/Area] 40 mL/min/{1.73_m2} Low >60 [facility] Comment on above: Result Comment: mL/m in/1.73m2 CKD-EPI Creatinine Equation (2020) Performed By: #### L 501.4405, L500.2500, L100.0100 ####[facility] [address] [place], [address] Glucose [Mass/Vol] 161 mg/dL High 70-99 [facility] Comment on above: Performed By: #### L 501.4405, L500.2500, L100.0100 ####[facility] [address] [place], [address] Potassium [Moles/Vol] 3.7 mmol/L Normal 3.3-5.1 [facility] Comment on above: Performed By: #### L 501.4405, L500.2500, L100.0100 ####[facility] [address] [place], [address] Sodium [Moles/Vol] 142 mmol/L Normal 133-145 [facility] Comment on above: Performed By: #### L 501.4405, L500.2500, L100.0100 ####[facility] [address] [place], [address] Urea nitrogen [Mass/Vol] 28 mg/dL High 4-19 [facility] Comment on above: Performed By: #### L 501.4405, L500.2500, L100.0100 ####[facility] [address] [place], [address] Bedside Glucoseon 02-10-2025 FINGERSTICK GLU 135 mg/dL High 74-106 [facility] Comment on above: Result Comment: JAZ GEMENT OF PATIENT CARE PER NURSING PROTOCOL Performed By: #### L 501.080 ####[facility] [address] [place], [address] FINGERSTICK GLU 132 mg/dL High 74-106 [facility] Comment on above: Result Comment: JAZ GEMENT OF PATIENT CARE PER NURSING PROTOCOL Performed By: #### L 501.080 ####[facility] [address] [place], [address] FINGERSTICK GLU 156 mg/dL High 74-106 [facility] Comment on above: Result Comment: JAZ GEMENT OF PATIENT CARE PER NURSING PROTOCOL Performed By: #### L 501.080 ####[facility] [address] [place], [address] FINGERSTICK GLU 156 mg/dL High -106 [facility] Comment on above: Result Comment: JAZ GEMENT OF PATIENT CARE PER NURSING PROTOCOL Performed By: #### L 501.080 ####[facility] [address] [place], [address] FINGERSTICK GLU 153 mg/dL High 74-106 [facility] Comment on above: Result Comment: JAZ GEMENT OF PATIENT CARE PER NURSING PROTOCOL Performed By: #### L 501.080 ####[facility] [address] [place], [address] CBC W/Diff, Automatedon 07-3 Absolute Lymph 1.25 X10 3/uL Normal 0.83-4.51 [facility] Comment on above: Performed By: #### L 501.4405, L500.2500, L100.0100 ####[facility] [address] [place], [address] Absolute Neut 8.3 X10 3/uL High 2.0-7.7 [facility] Comment on above: Performed By: #### L 501.4405, L500.2500, L100.0100 ####[facility] [address] [place], [address] Basophils/100 WBC (Bld) 0.4 % Normal 0-1 [facility] Comment on above: Performed By: #### L 501.4405, L500.2500, L100.0100 ####[facility] [address] [place], [address] Eosinophils/100 WBC (Bld) 4.7 % Normal 0-5 [facility] Comment on above: Performed By: #### L 501.4405, L500.2500, L100.0100 ####[facility] [address] [place], [address] Erythrocyte distribution width (RBC) [Ratio] 13.7 % Normal 11.6-14.6 [facility] Comment on above: Performed By: #### L 501.4405, L500.2500, L100.0100 ####[facility] [address] [place], [address] Hematocrit (Bld) [Volume fraction] 30.5 % Low 40-54 [facility] Comment on above: Performed By: #### L 501.4405, L500.2500, L100.0100 ####[facility] [address] [place], [address] Hemoglobin (Bld) [Mass/Vol] 9.7 g/dL Low 13.0-16. 5 [facility] Comment on above: Performed By: #### L 501.4405, L500.2500, L100.0100 ####[facility] [address] [place], [address] IG% 2.300 High 0.0-0.9 [facility] Comment on above: Result Comment: IG% - Immature Granulocytes (promyelocytes, myelocytes andmetamyelocytes) > 1% indicates that a LEFT SHIFT is Present. Performed By: #### L 501.4405, L500.2500, L100.0100 ####[facility] [address] [place], [address] Lymphocytes/100 WBC (Bld) 11.0 % Low 19-41 [facility] Comment on above: Performed By: #### L 501.4405, L500.2500, L100.0100 ####[facility] [address] [place], [address] MCH (RBC) [Entitic mass] 27.6 pg Normal 27.0-32.0 [facility] Comment on above: Performed By: #### L 501.4405, L500.2500, L100.0100 ####[facility] [address] [place], [address] MCHC (RBC) [Mass/Vol] 31.8 g/dL Low 32-36 [facility] Comment on above: Performed By: #### L 501.4405, L500.2500, L100.0100 ####[facility] [address] [place], [address] MCV (RBC) [Entitic vol] 86.9 fL Normal 80-94 [facility] Comment on above: Performed By: #### L 501.4405, L500.2500, L100.0100 ####[facility] [address] [place], [address] Monocytes/100 WBC (Bld) 8.5 % Normal 0-10 [facility] Comment on above: Performed By: #### L 501.4405, L500.2500, L100.0100 ####[facility] [address] [place], [address] Neutrophils/100 WBC (Bld) 73.1 % High 47-70 [facility] Comment on above: Performed By: #### L 501.4405, L500.2500, L100.0100 ####[facility] [address] [place], [address] Nucleated RBC (Bld) [#/Vol] 0 10*3/uL Normal 0-5 [facility] Comment on above: Performed By: #### L 501.4405, L500.2500, L100.0100 ####[facility] [address] [place], [address] Platelet mean volume (Bld) [Entitic vol] 9.1 fL Normal 6.2-12.0 [facility] Comment on above: Performed By: #### L 501.4405, L500.2500, L100.0100 ####[facility] [address] [place], [address] Platelets (Bld) [#/Vol] 314 10*3/uL Normal 150-450 [facility] Comment on above: Performed By: #### L 501.4405, L500.2500, L100.0100 ####[facility] [address] [place], [address] RBC (Bld) [#/Vol] 3.51 10*6/uL Low 4.6-6.2 [facility] Comment on above: Performed By: #### L 501.4405, L500.2500, L100.0100 ####[facility] [address] [place], [address] RDW SD 43.9 fl Normal 35.1-43.9 [facility] Comment on above: Performed By: #### L 501.4405, L500.2500, L100.0100 ####[facility] [address] [place], [address] WBC (Bld) [#/Vol] 11.4 10*3/uL High 4.4-11.0 [facility] Comment on above: Performed By: #### L 501.4405, L500.2500, L100.0100 ####[facility] [address] [place], [address] Culture, Anaerobic Any Sourc ace 02-10-2025 CUAN UNK UNK Bone 5th left Metatarsal toe No anaerobic bacteria isolated. Normal [facility] Comment on above: Performed By: #### M 100.3000, M100.2000, M600.2200, M100.4001, M600.2000 ####[facility] [address] [place], [address] CUAN UNK UNK Clearance Fragment left 5th metatarsal toe No growth in 5 days. Normal [facility] Comment on above: Performed By: #### M 100.3000, M600.2000, M100.2000, M600.2200, M100.4001 ####[facility] [address] [place], [address] No Panel InformationOrdered By: Aneesh Ac on 02-10-2025 15 U/L <38 [facility] Operative Reporton Operative Report Normal [facility] Partial Thromboplast Timeon 02-10-2025 aPTT Coag (Bld) [Time] 33.4 s Normal 24.1-36.2 [facility] Comment on above: Performed By: #### L 300.4310, L300.3900, L501.4100 ####[facility] [address] [place], [address] Prothrombin Time w/INRon INR Coag (PPP) [Relative time] 1.3 {INR} Normal [facility] Comment on above: Performed By: #### L 300.4310, L300.3900, L501.4100 ####[facility] [address] [place], [address] PT Coag (PPP) [Time] 16.2 s High 11.7-14.9 [facility] Comment on above: Performed By: #### L 300.4310, L300.3900, L501.4100 ####[facility] [address] [place], [address] Prothrombin timeOrdered By: Aneesh Ac on 02-10-2025 PT Coag (PPP) [Time] 16.2 s High 11.7-14.9 [facility] Serum or plasma alanine davis otransferase (ALT) measurementOrdered By: Aneesh Ac on 02-10-2025 ALT [Catalytic activity/Vol] 31 U/L <47 [facility] Surgical pathology reportOrd ered By: Umm Garcia on 02-10-2025 Surgical pathology study [facility] Trough vancomycin levelOrder ed By: Hugo Cervantes on 02-10-2025 Vancomycin trough [Mass/Vol] 16.6 ug/mL High 5.0-15.0 [facility] Vancomycin, Trough Levelon 0 02-10-2025 VANCO, TROUGH 16.6 ug/mL High 5.0-15.0 [facility] Comment on above: Order Comment: Comme nts: Trough to be drawn 30 mins prior to scheduled [id number] Result Comment: Jalen mmended goal trough ranges [...] therapy recommended for serious lifethreatening infections include:- Bgtpfdxwug-Bstoapkoesvo-Ietqqljtg (Ventilator/Healtcare Associated)-SepsisPLEASE CONTACT PHARMACY SERVICES (#1392) FOR INTERPRETATIONOF RESULTS. Performed By: #### L 501.8820 ####[facility] [address] [place], [address] Basic Metabolic Profile (BMP )on 02-09-2025 BUN/CRE 14.2 RATIO Normal 10-20 [facility] Comment on above: Performed By: #### L 100.0100, L500.2500 ####[facility] [address] [place], [address] Calcium [Mass/Vol] 9.0 mg/dL Normal 7.6-11.0 [facility] Comment on above: Performed By: #### L 100.0100, L500.2500 ####[facility] [address] [place], [address] Chloride [Moles/Vol] 110 mmol/L High 98-108 [facility] Comment on above: Performed By: #### L 100.0100, L500.2500 ####[facility] [address] [place], [address] CO2 [Moles/Vol] 21.6 mmol/L Normal 21.0-32.0 [facility] Comment on above: Performed By: #### L 100.0100, L500.2500 ####[facility] [address] [place], [address] Creatinine [Mass/Vol] 1.70 mg/dL High 0.70-1.20 [facility] Comment on above: Performed By: #### L 100.0100, L500.2500 ####[facility] [address] [place], [address] ECRCL 61.27 ml/min Normal 50-250 [facility] Comment on above: Performed By: #### L 100.0100, L500.2500 ####[facility] [address] [place], [address] GAP 12 Normal 5-15 [facility] Comment on above: Performed By: #### L 100.0100, L500.2500 ####[facility] [address] [place], [address] GFR/1.73 sq M.predicted among non-blacks MDRD (S/P/Bld) [Vol rate/Area] 41 mL/min/{1.73_m2} Low >60 [facility] Comment on above: Result Comment: mL/m in/1.73m2 CKD-EPI Creatinine Equation (2020) Performed By: #### L 100.0100, L500.2500 ####[facility] [address] [place], [address] Glucose [Mass/Vol] 142 mg/dL High 70-99 [facility] Comment on above: Performed By: #### L 100.0100, L500.2500 ####[facility] [address] [place], [address] Potassium [Moles/Vol] 4.1 mmol/L Normal 3.3-5.1 [facility] Comment on above: Result Comment: Hemo lysis present, Results??could be affected.?? Performed By: #### L 100.0100, L500.2500 ####[facility] [address] [place], [address] Sodium [Moles/Vol] 143 mmol/L Normal 133-145 [facility] Comment on above: Performed By: #### L 100.0100, L500.2500 ####[facility] [address] [place], [address] Urea nitrogen [Mass/Vol] 24 mg/dL High 4-19 [facility] Comment on above: Performed By: #### L 100.0100, L500.2500 ####[facility] [address] [place], [address] Bedside Glucoseon 02-09-2025 FINGERSTICK GLU 140 mg/dL High 74-106 [facility] Comment on above: Result Comment: JAZ GEMENT OF PATIENT CARE PER NURSING PROTOCOL Performed By: #### L 501.080 ####[facility] [address] [place], [address] FINGERSTICK GLU 145 mg/dL High 74-106 [facility] Comment on above: Result Comment: JAZ GEMENT OF PATIENT CARE PER NURSING PROTOCOL Performed By: #### L 501.080 ####[facility] [address] [place], [address] FINGERSTICK GLU 127 mg/dL High 74-106 [facility] Comment on above: Result Comment: JAZ GEMENT OF PATIENT CARE PER NURSING PROTOCOL Performed By: #### L 501.080 ####[facility] [address] [place], [address] Blood polychromasia detectio n by light microscopyOrdered By: Hugo Cervantes on 02-09-2025 Polychromasia LM Ql (Bld) 1+ [facility] CBC W/Diff, Automatedon 01-13 POLYCHROMASIA 1+ Normal [facility] Comment on above: Performed By: #### L 100.0100, L500.2500 ####[facility] [address] [place], [address] Wound Cultureon 02-09-2025 WC Normal [facility] Comment on above: Performed By: #### M 100.3000, M100.2000, M600.2200, M100.4001, M600.2000 ####[facility] [address] [place], [address] Assessment of wrist artery p atency prior to arterial punctureOrdered By: Hugo Cervantes on 02-08-2025 Arterial patency Wrist artery --pre arterial puncture Positive [facility] Basic Metabolic Profile (BMP )on 02-08-2025 BUN/CRE 19.1 RATIO Normal 10-20 [facility] Comment on above: Performed By: #### L 100.0100, L500.2500 ####[facility] [address] [place], [address] Calcium [Mass/Vol] 8.9 mg/dL Normal 7.6-11.0 [facility] Comment on above: Performed By: #### L 100.0100, L500.2500 ####[facility] [address] [place], [address] Chloride [Moles/Vol] 110 mmol/L High 98-108 [facility] Comment on above: Performed By: #### L 100.0100, L500.2500 ####[facility] [address] [place], [address] CO2 [Moles/Vol] 24.2 mmol/L Normal 21.0-32.0 [facility] Comment on above: Performed By: #### L 100.0100, L500.2500 ####[facility] [address] [place], [address] Creatinine [Mass/Vol] 1.71 mg/dL High 0.70-1.20 [facility] Comment on above: Performed By: #### L 100.0100, L500.2500 ####[facility] [address] [place], [address] ECRCL 48.63 ml/min Low 50-250 [facility] Comment on above: Performed By: #### L 100.0100, L500.2500 ####[facility] [address] [place], [address] GAP 9 Normal 5-15 [facility] Comment on above: Performed By: #### L 100.0100, L500.2500 ####[facility] [address] [place], [address] GFR/1.73 sq M.predicted among non-blacks MDRD (S/P/Bld) [Vol rate/Area] 41 mL/min/{1.73_m2} Low >60 [facility] Comment on above: Result Comment: mL/m in/1.73m2 CKD-EPI Creatinine Equation (2020) Performed By: #### L 100.0100, L500.2500 ####[facility] [address] [place], [address] Glucose [Mass/Vol] 156 mg/dL High 70-99 [facility] Comment on above: Performed By: #### L 100.0100, L500.2500 ####[facility] [address] [place], [address] Potassium [Moles/Vol] 3.8 mmol/L Normal 3.3-5.1 [facility] Comment on above: Performed By: #### L 100.0100, L500.2500 ####[facility] [address] [place], [address] Sodium [Moles/Vol] 143 mmol/L Normal 133-145 [facility] Comment on above: Performed By: #### L 100.0100, L500.2500 ####[facility] [address] [place], [address] Urea nitrogen [Mass/Vol] 33 mg/dL High 4-19 [facility] Comment on above: Performed By: #### L 100.0100, L500.2500 ####[facility] [address] [place], [address] Bedside Glucoseon 02-08-2025 FINGERSTICK GLU 135 mg/dL High 74-106 [facility] Comment on above: Result Comment: JAZ BRANDON OF PATIENT CARE PER NURSING PROTOCOL Performed By: #### L 501.080 ####[facility] [address] [place], [address] FINGERSTICK GLU 141 mg/dL High 74-106 [facility] Comment on above: Result Comment: JAZ GEMENT OF PATIENT CARE PER NURSING PROTOCOL Performed By: #### L 501.080 ####[facility] [address] [place], [address] FINGERSTICK GLU 145 mg/dL High 74-106 [facility] Comment on above: Result Comment: JAZ GEMENT OF PATIENT CARE PER NURSING PROTOCOL Performed By: #### L 501.080 ####[facility] [address] [place], [address] [facility]25 EUGENIO TEST Positive Normal [facility] Comment on above: Performed By: #### L 9000.0800 ####[facility] [address] [place], [address] Base excess Calc (Bld) [Moles/Vol] 5 mmol/L High -2 to +2 [facility] Comment on above: Performed By: #### L 9000.0800 ####[facility] [address] [place], [address] Blood Gas Type ART Normal [facility] Comment on above: Performed By: #### L 9000.0800 ####[facility] [address] [place], [address] CO2 [Moles/Vol] 30 mmol/L Normal [facility] Comment on above: Performed By: #### L 9000.0800 ####[facility] [address] [place], [address] FI02 2.0 Normal [facility] Comment on above: Performed By: #### L 9000.0800 ####[facility] [address] [place], [address] HCO3 (Bld) [Moles/Vol] 28.8 mmol/L High 22-26 [facility] Comment on above: Performed By: #### L 0.0800 ####[facility] [address] [place], [address] Mode Not entered Normal [facility] Comment on above: Performed By: #### L 9000.0800 ####[facility] [address] [place], [address] O2 Delivery Dev Cannula Normal [facility] Comment on above: Performed By: #### L 9000.0800 ####[facility] [address] [place], [address] pCO2 42.1 mmHg Normal 35-45 [facility] Comment on above: Performed By: #### L 9000.0800 ####[facility] [address] [place], [address] pH (Bld) 7.44 [pH] Normal 7.35-7.45 [facility] Comment on above: Performed By: #### L 9000.0800 ####[facility] [address] [place], [address] PO2 82 mmHG Normal 75-100 [facility] Comment on above: Performed By: #### L 9000.0800 ####[facility] [address] [place], [address] SITE R Radial Normal [facility] Comment on above: Performed By: #### L 9000.0800 ####[facility] [address] [place], [address] SO2 96 Normal 95-99 [facility] Comment on above: Performed By: #### L 9000.0800 ####[facility] [address] [place], [address] Blood base excess determinat ionOrdered By: Hugo Cervantes on 02-08-2025 Base excess Calc (BldV) [Moles/Vol] 5 mmol/L High -2-2 [facility] Blood bicarbonate measuremen tOrdered By: Hugo Cervantes on 02-08-2025 HCO3 (Bld) [Moles/Vol] 28.8 mmol/L High 22-26 [facility] CBC W/Diff, Automatedon 01-13 Absolute Lymph 1.25 X10 3/uL Normal 0.83-4.51 [facility] Comment on above: Performed By: #### L 100.0100, L500.2500 ####[facility] [address] [place], [address] Absolute Neut 7.9 X10 3/uL High 2.0-7.7 [facility] Comment on above: Performed By: #### L 100.0100, L500.2500 ####[facility] [address] [place], [address] Basophils/100 WBC (Bld) 0.3 % Normal 0-1 [facility] Comment on above: Performed By: #### L 100.0100, L500.2500 ####[facility] [address] [place], [address] Eosinophils/100 WBC (Bld) 4.6 % Normal 0-5 [facility] Comment on above: Performed By: #### L 100.0100, L500.2500 ####[facility] [address] [place], [address] Erythrocyte distribution width (RBC) [Ratio] 13.7 % Normal 11.6-14.6 [facility] Comment on above: Performed By: #### L 100.0100, L500.2500 ####[facility] [address] [place], [address] Hematocrit (Bld) [Volume fraction] 29.3 % Low 40-54 [facility] Comment on above: Performed By: #### L 100.0100, L500.2500 ####[facility] [address] [place], [address] Hemoglobin (Bld) [Mass/Vol] 9.6 g/dL Low 13.0-16. 5 [facility] Comment on above: Performed By: #### L 100.0100, L500.2500 ####[facility] [address] [place], [address] IG% 1.400 High 0.0-0.9 [facility] Comment on above: Result Comment: IG% - Immature Granulocytes (promyelocytes, myelocytes andmetamyelocytes) > 1% indicates that a LEFT SHIFT is Present. Performed By: #### L 100.0100, L500.2500 ####[facility] [address] [place], [address] Lymphocytes/100 WBC (Bld) 11.5 % Low 19-41 [facility] Comment on above: Performed By: #### L 100.0100, L500.2500 ####[facility] [address] [place], [address] MCH (RBC) [Entitic mass] 27.8 pg Normal 27.0-32.0 [facility] Comment on above: Performed By: #### L 100.0100, L500.2500 ####[facility] [address] [place], [address] MCHC (RBC) [Mass/Vol] 32.8 g/dL Normal 32-36 [facility] Comment on above: Performed By: #### L 100.0100, L500.2500 ####[facility] [address] [place], [address] MCV (RBC) [Entitic vol] 84.9 fL Normal 80-94 [facility] Comment on above: Performed By: #### L 100.0100, L500.2500 ####[facility] [address] [place], [address] Monocytes/100 WBC (Bld) 9.5 % Normal 0-10 [facility] Comment on above: Performed By: #### L 100.0100, L500.2500 ####[facility] [address] [place], [address] Neutrophils/100 WBC (Bld) 72.7 % High 47-70 [facility] Comment on above: Performed By: #### L 100.0100, L500.2500 ####[facility] [address] [place], [address] Nucleated RBC (Bld) [#/Vol] 0 10*3/uL Normal 0-5 [facility] Comment on above: Performed By: #### L 100.0100, L500.2500 ####[facility] [address] [place], [address] Platelet mean volume (Bld) [Entitic vol] 8.8 fL Normal 6.2-12.0 [facility] Comment on above: Performed By: #### L 100.0100, L500.2500 ####[facility] [address] [place], [address] Platelets (Bld) [#/Vol] 263 10*3/uL Normal 150-450 [facility] Comment on above: Performed By: #### L 100.0100, L500.2500 ####[facility] [address] [place], [address] RBC (Bld) [#/Vol] 3.45 10*6/uL Low 4.6-6.2 [facility] Comment on above: Performed By: #### L 100.0100, L500.2500 ####[facility] [address] [place], [address] RDW SD 42.7 fl Normal 35.1-43.9 [facility] Comment on above: Performed By: #### L 100.0100, L500.2500 ####[facility] [address] [place], [address] WBC (Bld) [#/Vol] 10.9 10*3/uL Normal 4.4-11.0 [facility] Comment on above: Performed By: #### L 100.0100, L500.2500 ####[facility] [address] [place], [address] Consultation - Infectious Dx on 02-08-2025 Consultation - Infectious Dx Normal [facility] Culture, Blood (WB)on 2024 CUB Blood cultures x2, from two different sites No growth in 5 days. Normal [facility] Comment on above: Performed By: #### M 200.1000, L100.0100, L300.3900, L300.4310, L503.6005, L500.4050 ####[facility] [address] [place], [place], [address] Measurement, pHOrdered By: Breonna Cervantes on 02-08-2025 pH (Unsp spec) 7.44 [pH] 7.35-7.45 [facility] No Panel InformationOrdered By: Hugo Cervantes on 02-08-2025 ART [facility] R Radial [facility] Not entered [facility] Cannula [facility] Total carbon dioxide measure mentOrdered By: Hugo Cervantes on 02-08-2025 CO2 [Moles/Vol] 30 mmol/L [facility] Vancomycin, Trough Levelon 0 02-08-2025 VANCO, TROUGH 20.6 ug/mL High 5.0-15.0 [facility] Comment on above: Order Comment: Comme nts: DRAW 30 MIN PRIOR TO [id number] Result Comment: Jalen mmended goal trough ranges [...] therapy recommended for serious lifethreatening infections include:- Cktgntdtun-Bbgrvfohmqfq-Ejovdqecj (Ventilator/Healtcare Associated)-SepsisPLEASE CONTACT PHARMACY SERVICES (#8448) FOR INTERPRETATIONOF RESULTS. Performed By: #### L 501.8820 ####[facility] [address] [place], [address] Basic Metabolic Profile (BMP )on 02-07-2025 BUN/CRE 22.7 RATIO High 10-20 [facility] Comment on above: Performed By: #### L 100.0100, L500.2500 ####[facility] [address] [place], [address] Calcium [Mass/Vol] 8.7 mg/dL Normal 7.6-11.0 [facility] Comment on above: Performed By: #### L 100.0100, L500.2500 ####[facility] [address] [place], [address] Chloride [Moles/Vol] 109 mmol/L High 98-108 [facility] Comment on above: Performed By: #### L 100.0100, L500.2500 ####[facility] [address] [place], [address] CO2 [Moles/Vol] 22.6 mmol/L Normal 21.0-32.0 [facility] Comment on above: Performed By: #### L 100.0100, L500.2500 ####[facility] [address] [place], [address] Creatinine [Mass/Vol] 1.75 mg/dL High 0.70-1.20 [facility] Comment on above: Performed By: #### L 100.0100, L500.2500 ####[facility] [address] [place], [address] ECRCL 47.38 ml/min Low 50-250 [facility] Comment on above: Performed By: #### L 100.0100, L500.2500 ####[facility] [address] [place], [address] GAP 10 Normal 5-15 [facility] Comment on above: Performed By: #### L 100.0100, L500.2500 ####[facility] [address] [place], [address] GFR/1.73 sq M.predicted among non-blacks MDRD (S/P/Bld) [Vol rate/Area] 40 mL/min/{1.73_m2} Low >60 [facility] Comment on above: Result Comment: mL/m in/1.73m2 CKD-EPI Creatinine Equation (2020) Performed By: #### L 100.0100, L500.2500 ####[facility] [address] [place], [address] Glucose [Mass/Vol] 150 mg/dL High 70-99 [facility] Comment on above: Performed By: #### L 100.0100, L500.2500 ####[facility] [address] [place], [address] Potassium [Moles/Vol] 3.8 mmol/L Normal 3.3-5.1 [facility] Comment on above: Performed By: #### L 100.0100, L500.2500 ####[facility] [address] [place], [address] Sodium [Moles/Vol] 142 mmol/L Normal 133-145 [facility] Comment on above: Performed By: #### L 100.0100, L500.2500 ####[facility] [address] [place], [address] Urea nitrogen [Mass/Vol] 40 mg/dL High 4-19 [facility] Comment on above: Performed By: #### L 100.0100, L500.2500 ####[facility] [address] [place], [address] Bedside Glucoseon 02-07-2025 FINGERSTICK GLU 174 mg/dL High 74-106 [facility] Comment on above: Result Comment: JAZ GEMENT OF PATIENT CARE PER NURSING PROTOCOL Performed By: #### L 501.080 ####[facility] [address] [place], [address] FINGERSTICK GLU 143 mg/dL High 74-106 [facility] Comment on above: Result Comment: JAZ GEMENT OF PATIENT CARE PER NURSING PROTOCOL Performed By: #### L 501.080 ####[facility] [address] [place], [address] FINGERSTICK GLU 156 mg/dL High 74-106 [facility] Comment on above: Result Comment: JAZ GEMENT OF PATIENT CARE PER NURSING PROTOCOL Performed By: #### L 501.080 ####[facility] [address] [place], [address] FINGERSTICK GLU 146 mg/dL High [facility]106 [facility] Comment on above: Result Comment: JAZ GEMENT OF PATIENT CARE PER NURSING PROTOCOL Performed By: #### L 501.080 ####[facility] [address] [place], [address] CBC W/Diff, Automatedon - Absolute Lymph 1.37 X10 3/uL Normal 0.83-4.51 [facility] Comment on above: Performed By: #### L 100.0100, L500.2500 ####[facility] [address] [place], [address] Absolute Neut 6.1 X10 3/uL Normal 2.0-7.7 [facility] Comment on above: Performed By: #### L 100.0100, L500.2500 ####[facility] [address] [place], [address] Basophils/100 WBC (Bld) 0.7 % Normal 0-1 [facility] Comment on above: Performed By: #### L 100.0100, L500.2500 ####[facility] [address] [place], [address] Eosinophils/100 WBC (Bld) 6.8 % High 0-5 [facility] Comment on above: Performed By: #### L 100.0100, L500.2500 ####[facility] [address] [place], [address] Erythrocyte distribution width (RBC) [Ratio] 13.6 % Normal 11.6-14.6 [facility] Comment on above: Performed By: #### L 100.0100, L500.2500 ####[facility] [address] [place], [address] Hematocrit (Bld) [Volume fraction] 29.6 % Low 40-54 [facility] Comment on above: Performed By: #### L 100.0100, L500.2500 ####[facility] [address] [place], [address] Hemoglobin (Bld) [Mass/Vol] 9.5 g/dL Low 13.0-16. 5 [facility] Comment on above: Performed By: #### L 100.0100, L500.2500 ####[facility] [address] [place], [address] IG% 1.900 High 0.0-0.9 [facility] Comment on above: Result Comment: IG% - Immature Granulocytes (promyelocytes, myelocytes andmetamyelocytes) > 1% indicates that a LEFT SHIFT is Present. Performed By: #### L 100.0100, L500.2500 ####[facility] [address] [place], [address] Lymphocytes/100 WBC (Bld) 15.0 % Low 19-41 [facility] Comment on above: Performed By: #### L 100.0100, L500.2500 ####[facility] [address] [place], [address] MCH (RBC) [Entitic mass] 27.5 pg Normal 27.0-32.0 [facility] Comment on above: Performed By: #### L 100.0100, L500.2500 ####[facility] [address] [place], [address] MCHC (RBC) [Mass/Vol] 32.1 g/dL Normal 32-36 [facility] Comment on above: Performed By: #### L 100.0100, L500.2500 ####[facility] [address] [place], [address] MCV (RBC) [Entitic vol] 85.5 fL Normal 80-94 [facility] Comment on above: Performed By: #### L 100.0100, L500.2500 ####[facility] [address] [place], [address] Monocytes/100 WBC (Bld) 9.5 % Normal 0-[address] [facility] Comment on above: Performed By: #### L 100.0100, L500.2500 ####[facility] [address] [place], [address] Neutrophils/100 WBC (Bld) 66.1 % Normal 47-70 [facility] Comment on above: Performed By: #### L 100.0100, L500.2500 ####[facility] [address] [place], [address] Nucleated RBC (Bld) [#/Vol] 0 10*3/uL Normal 0-5 [facility] Comment on above: Performed By: #### L 100.0100, L500.2500 ####[facility] [address] [place], [address] Platelet mean volume (Bld) [Entitic vol] 9.0 fL Normal 6.2-12.0 [facility] Comment on above: Performed By: #### L 100.0100, L500.2500 ####[facility] [address] [place], [address] Platelets (Bld) [#/Vol] 258 10*3/uL Normal 150-450 [facility] Comment on above: Performed By: #### L 100.0100, L500.2500 ####[facility] [address] [place], [address] RBC (Bld) [#/Vol] 3.46 10*6/uL Low 4.6-6.2 [facility] Comment on above: Performed By: #### L 100.0100, L500.2500 ####[facility] [address] [place], [address] RDW SD 42.4 fl Normal 35.1-43.9 [facility] Comment on above: Performed By: #### L 100.0100, L500.2500 ####[facility] [address] [place], [address] WBC (Bld) [#/Vol] 9.2 10*3/uL Normal 4.4-11.0 [facility] Comment on above: Performed By: #### L 100.0100, L500.2500 ####[facility] [address] [place], [address] Culture, Anaerobic Any [facility] ace 02-07-2025 CUAN ONLY AEROBIC SWAB WA S SENT DRUGS WITH ANAROBES MAYBE INHIBITED. No anaerobic bacteria isolated. Normal [facility] Comment on above: Performed By: #### M 100.4001, L8200.1075, M100.3000, M100.2000 ####[facility] [address] [place], [address] Serum or plasma vancomycin m easurement (mass/volume)Ordered By: Hugo Cervantes on 02-07-2025 Vancomycin [Mass/Vol] 17.6 ug/mL High 0.0-15.0 [facility] Vancomycin, Random Levelon 0 02-07-2025 VANCO, RANDOM 17.6 ug/mL High 0.0-15.0 [facility] Comment on above: Result Comment: VANC OMYCIN STANDARD DRUG THERAPY: CRITICAL VALUE IS > 15.0 mg/LVANCOMYCIN HIGH INTENSITY THERAPY: CRITICAL VALUE IS > 20.0 mg/LPLEASE CONTACT PHARMACY SERVICES (#1892) FOR INTERPRETATIONOF RESULTS. THIS RESULT DOES NOT REPRESENT A PEAK OR TROUGHLEVEL FOR THIS DRUG. Performed By: #### L 501.8850 ####[facility] [address] [place], [address] Wound Cultureon 02-07-2025 WC Normal [facility] Comment on above: Performed By: #### M 100.4001, L8200.1075, M100.3000, M100.2000 ####[facility] [address] [place], [address] Basic Metabolic Profile (BMP )on 02-06-2025 BUN/CRE 22.0 RATIO High 10-20 [facility] Comment on above: Performed By: #### L 100.0100, L500.2500 ####[facility] [address] [place], [address] Calcium [Mass/Vol] 8.8 mg/dL Normal 7.6-11.0 [facility] Comment on above: Performed By: #### L 100.0100, L500.2500 ####[facility] [address] [place], [address] Chloride [Moles/Vol] 109 mmol/L High 98-108 [facility] Comment on above: Performed By: #### L 100.0100, L500.2500 ####[facility] [address] [place], [address] CO2 [Moles/Vol] 21.2 mmol/L Normal 21.0-32.0 [facility] Comment on above: Performed By: #### L 100.0100, L500.2500 ####[facility] [address] [place], [address] Creatinine [Mass/Vol] 1.83 mg/dL High 0.70-1.20 [facility] Comment on above: Performed By: #### L 100.0100, L500.2500 ####[facility] [address] [place], [address] ECRCL 45.10 ml/min Low 50-250 [facility] Comment on above: Performed By: #### L 100.0100, L500.2500 ####[facility] [address] [place], [address] GAP 11 Normal 5-15 [facility] Comment on above: Performed By: #### L 100.0100, L500.2500 ####[facility] [address] [place], [address] GFR/1.73 sq M.predicted among non-blacks MDRD (S/P/Bld) [Vol rate/Area] 38 mL/min/{1.73_m2} Low >60 [facility] Comment on above: Result Comment: mL/m in/1.73m2 CKD-EPI Creatinine Equation (2020) Performed By: #### L 100.0100, L500.2500 ####[facility] [address] [place], [address] Glucose [Mass/Vol] 150 mg/dL High 70-99 [facility] Comment on above: Performed By: #### L 100.0100, L500.2500 ####[facility] [address] [place], [address] Potassium [Moles/Vol] 3.9 mmol/L Normal 3.3-5.1 [facility] Comment on above: Performed By: #### L 100.0100, L500.2500 ####[facility] [address] [place], [address] Sodium [Moles/Vol] 141 mmol/L Normal 133-145 [facility] Comment on above: Performed By: #### L 100.0100, L500.2500 ####[facility] [address] [place], [address] Urea nitrogen [Mass/Vol] 40 mg/dL High 4-19 [facility] Comment on above: Performed By: #### L 100.0100, L500.2500 ####[facility] [address] [place], [address] Bedside Glucoseon 02-06-2025 FINGERSTICK GLU 169 mg/dL High 74-106 [facility] Comment on above: Result Comment: JAZ GEMENT OF PATIENT CARE PER NURSING PROTOCOL Performed By: #### L 501.080 ####[facility] [address] [place], [address] FINGERSTICK GLU 140 mg/dL High 74-106 [facility] Comment on above: Result Comment: JAZ GEMENT OF PATIENT CARE PER NURSING PROTOCOL Performed By: #### L 501.080 ####[facility] [address] [place], [address] FINGERSTICK GLU 186 mg/dL High 74-106 [facility] Comment on above: Result Comment: JAZ GEMENT OF PATIENT CARE PER NURSING PROTOCOL Performed By: #### L 501.080 ####[facility] [address] [place], [address] FINGERSTICK GLU 147 mg/dL High 74-106 [facility] Comment on above: Result Comment: JAZ GEMENT OF PATIENT CARE PER NURSING PROTOCOL Performed By: #### L 501.080 ####[facility] [address] [place], [address] CBC W/Diff, Automatedon 07-2 Absolute Lymph 1.00 X10 3/uL Normal 0.83-4.51 [facility] Comment on above: Performed By: #### L 100.0100, L500.2500 ####[facility] [address] [place], [address] Absolute Neut 7.3 X10 3/uL Normal 2.0-7.7 [facility] Comment on above: Performed By: #### L 100.0100, L500.2500 ####[facility] [address] [place], [address] Basophils/100 WBC (Bld) 0.4 % Normal 0-1 [facility] Comment on above: Performed By: #### L 100.0100, L500.2500 ####[facility] [address] [place], [address] Eosinophils/100 WBC (Bld) 5.9 % High 0-5 [facility] Comment on above: Performed By: #### L 100.0100, L500.2500 ####[facility] [address] [place], [address] Erythrocyte distribution width (RBC) [Ratio] 13.6 % Normal 11.6-14.6 [facility] Comment on above: Performed By: #### L 100.0100, L500.2500 ####[facility] [address] [place], [address] Hematocrit (Bld) [Volume fraction] 30.5 % Low 40-54 [facility] Comment on above: Performed By: #### L 100.0100, L500.2500 ####[facility] [address] [place], [address] Hemoglobin (Bld) [Mass/Vol] 9.9 g/dL Low 13.0-16. 5 [facility] Comment on above: Performed By: #### L 100.0100, L500.2500 ####[facility] [address] [place], [address] IG% 0.800 Normal 0.0-0.9 [facility] Comment on above: Result Comment: IG% - Immature Granulocytes (promyelocytes, myelocytes andmetamyelocytes) > 1% indicates that a LEFT SHIFT is Present. Performed By: #### L 100.0100, L500.2500 ####[facility] [address] [place], [address] Lymphocytes/100 WBC (Bld) 10.1 % Low 19-41 [facility] Comment on above: Performed By: #### L 100.0100, L500.2500 ####[facility] [address] [place], [address] MCH (RBC) [Entitic mass] 27.9 pg Normal 27.0-32.0 [facility] Comment on above: Performed By: #### L 100.0100, L500.2500 ####[facility] [address] [place], [address] MCHC (RBC) [Mass/Vol] 32.5 g/dL Normal 32-36 [facility] Comment on above: Performed By: #### L 100.0100, L500.2500 ####[facility] [address] [place], [address] MCV (RBC) [Entitic vol] 85.9 fL Normal 80-94 [facility] Comment on above: Performed By: #### L 100.0100, L500.2500 ####[facility] [address] [place], [address] Monocytes/100 WBC (Bld) 8.6 % Normal 0-10 [facility] Comment on above: Performed By: #### L 100.0100, L500.2500 ####[facility] [address] [place], [address] Neutrophils/100 WBC (Bld) 74.2 % High 47-70 [facility] Comment on above: Performed By: #### L 100.0100, L500.2500 ####[facility] [address] [place], [address] Nucleated RBC (Bld) [#/Vol] 0 10*3/uL Normal 0-5 [facility] Comment on above: Performed By: #### L 100.0100, L500.2500 ####[facility] [address] [place], [address] Platelet mean volume (Bld) [Entitic vol] 9.2 fL Normal 6.2-12.0 [facility] Comment on above: Performed By: #### L 100.0100, L500.2500 ####[facility] [address] [place], [address] Platelets (Bld) [#/Vol] 262 10*3/uL Normal 150-450 [facility] Comment on above: Performed By: #### L 100.0100, L500.2500 ####[facility] [address] [place], [address] RBC (Bld) [#/Vol] 3.55 10*6/uL Low 4.6-6.2 [facility] Comment on above: Performed By: #### L 100.0100, L500.2500 ####[facility] [address] [place], [address] RDW SD 42.9 fl Normal 35.1-43.9 [facility] Comment on above: Performed By: #### L 100.0100, L500.2500 ####[facility] [address] [place], [address] WBC (Bld) [#/Vol] 9.9 10*3/uL Normal 4.4-11.0 [facility] Comment on above: Performed By: #### L 100.0100, L500.2500 ####[facility] [address] [place], [address] Gram Stainon 02-06-2025 GS UNK UNK Bone 5th left Metatarsal toe Gram Stain No organisms seen 2+ White Blood Cells Normal [facility] Comment on above: Performed By: #### M 100.3000, M100.2000, M600.2200, M100.4001, M600.2000 ####[facility] [address] [place], [address] GS UNK UNK Clearance Fragment left 5th metatarsal toe Gram Stain No organisms seen Normal [facility] Comment on above: Performed By: #### M 100.3000, M600.1999, M100.2000, M600.2200, M100.4001 ####[facility] [address] [place], [address] Vancomycin, Random Levelon 0 02-06-2025 VANCO, RANDOM 21.4 ug/mL High 0.0-15.0 [facility] Comment on above: Result Comment: VANC OMYCIN STANDARD DRUG THERAPY: CRITICAL VALUE IS > 15.0 mg/LVANCOMYCIN HIGH INTENSITY THERAPY: CRITICAL VALUE IS > 20.0 mg/LPLEASE CONTACT PHARMACY SERVICES (#2790) FOR INTERPRETATIONOF RESULTS. THIS RESULT DOES NOT REPRESENT A PEAK OR TROUGHLEVEL FOR THIS DRUG. Performed By: #### L 501.8850 ####[facility] [address] [place], [address] Vancomycin, Trough Levelon 0 02-06-2025 VANCO, TROUGH 25.9 ug/mL High 5.0-15.0 [facility] Comment on above: Order Comment: Comme nts: Trough to be drawn 30 mins prior to scheduled [id number] Result Comment: Jalen mmended goal trough ranges [...] therapy recommended for serious lifethreatening infections include:- Fcqzggksya-Vougqykglhif-Mkywdhefz (Ventilator/Healtcare Associated)-SepsisPLEASE CONTACT PHARMACY SERVICES (#5854) FOR INTERPRETATIONOF RESULTS. Performed By: #### L 501.8863 ####[facility] [address] [place], [address] Wound Cultureon 02-06-2025 WC UNK UNK Clearance Fragment left 5th metatarsal toe No growth aerobically. Normal [facility] Comment on above: Performed By: #### M 100.3000, M600.2000, M100.2000, M600.2200, M100.4001 ####[facility] [address] [place], [address] Acid fast bacillus (AFB) cul tureOrdered By: Kee Mejia on 02-05-2025 Mycobacterium sp identified Org specific cx Nom (Unsp spec) [facility] Mycobacterium sp identified Org specific cx Nom (Unsp spec) [facility] Anaerobic cultureOrdered By: Kee Mejia on 02-05-2025 Bacteria identified Anaer cx Nom (Unsp spec) No anaerobic bacteria isolated. [facility] Bacteria identified Anaer cx Nom (Unsp spec) No growth in 5 days. [facility] Basic Metabolic Profile (BMP )on 02-05-2025 BUN/CRE 22.6 RATIO High 10-20 [facility] Comment on above: Performed By: #### L 500.2500, L100.0100 ####[facility] [address] [place], [address] Calcium [Mass/Vol] 8.8 mg/dL Normal 7.6-11.0 [facility] Comment on above: Performed By: #### L 500.2500, L100.0100 ####[facility] [address] [place], [address] Chloride [Moles/Vol] 110 mmol/L High 98-108 [facility] Comment on above: Performed By: #### L 500.2500, L100.0100 ####[facility] [address] [place], [address] CO2 [Moles/Vol] 20.0 mmol/L Low 21.0-32.0 [facility] Comment on above: Performed By: #### L 500.2500, L100.0100 ####[facility] [address] [place], [address] Creatinine [Mass/Vol] 1.81 mg/dL High 0.70-1.20 [facility] Comment on above: Performed By: #### L 500.2500, L100.0100 ####[facility] [address] [place], [address] ECRCL 45.33 ml/min Low 50-250 [facility] Comment on above: Performed By: #### L 500.2500, L100.0100 ####[facility] [address] [place], [address] GAP 12 Normal 5-15 [facility] Comment on above: Performed By: #### L 500.2500, L100.0100 ####[facility] [address] [place], [address] GFR/1.73 sq M.predicted among non-blacks MDRD (S/P/Bld) [Vol rate/Area] 38 mL/min/{1.73_m2} Low >60 [facility] Comment on above: Result Comment: mL/m in/1.73m2 CKD-EPI Creatinine Equation (2020) Performed By: #### L 500.2500, L100.0100 ####[facility] [address] [place], [address] Glucose [Mass/Vol] 166 mg/dL High 70-99 [facility] Comment on above: Performed By: #### L 500.2500, L100.0100 ####[facility] [address] [place], [address] Potassium [Moles/Vol] 3.8 mmol/L Normal 3.3-5.1 [facility] Comment on above: Performed By: #### L 500.2500, L100.0100 ####[facility] [address] [place], [address] Sodium [Moles/Vol] 141 mmol/L Normal 133-145 [facility] Comment on above: Performed By: #### L 500.2500, L100.0100 ####[facility] [address] [place], [address] Urea nitrogen [Mass/Vol] 41 mg/dL High 4-19 [facility] Comment on above: Performed By: #### L 500.2500, L100.0100 ####[facility] [address] [place], [address] Bedside Glucoseon 02-05-2025 FINGERSTICK GLU 168 mg/dL High 74-106 [facility] Comment on above: Result Comment: JAZ GEMENT OF PATIENT CARE PER NURSING PROTOCOL Performed By: #### L 501.080 ####[facility] [address] [place], [address] FINGERSTICK GLU 152 mg/dL High 74-106 [facility] Comment on above: Result Comment: JAZ GEMENT OF PATIENT CARE PER NURSING PROTOCOL Performed By: #### L 501.080 ####[facility] [address] [place], [address] FINGERSTICK GLU 153 mg/dL High 74-106 [facility] Comment on above: Result Comment: JAZ GEMENT OF PATIENT CARE PER NURSING PROTOCOL Performed By: #### L 501.080 ####[facility] [address] [place], [address] FINGERSTICK GLU 159 mg/dL High 74-106 [facility] Comment on above: Result Comment: JAZ GEMENT OF PATIENT CARE PER NURSING PROTOCOL Performed By: #### L 501.080 ####[facility] [address] [place], [address] FINGERSTICK GLU 167 mg/dL High 74-106 [facility] Comment on above: Result Comment: JAZ GEMENT OF PATIENT CARE PER NURSING PROTOCOL Performed By: #### L 501.080 ####[facility] [address] [place], [address] CBC W/Diff, Automatedon 07-2 5-2024 Absolute Lymph 1.00 X10 3/uL Normal 0.83-4.51 [facility] Comment on above: Performed By: #### L 500.2500, L100.0100 ####[facility] [address] [place], [address] Absolute Neut 8.2 X10 3/uL High 2.0-7.7 [facility] Comment on above: Performed By: #### L 500.2500, L100.0100 ####[facility] [address] [place], [address] Basophils/100 WBC (Bld) 0.2 % Normal 0-1 [facility] Comment on above: Performed By: #### L 500.2500, L100.0100 ####[facility] [address] [place], [address] Eosinophils/100 WBC (Bld) 5.2 % High 0-5 [facility] Comment on above: Performed By: #### L 500.2500, L100.0100 ####[facility] [address] [place], [address] Erythrocyte distribution width (RBC) [Ratio] 13.7 % Normal 11.6-14.6 [facility] Comment on above: Performed By: #### L 500.2500, L100.0100 ####[facility] [address] [place], [address] Hematocrit (Bld) [Volume fraction] 30.2 % Low 40-54 [facility] Comment on above: Performed By: #### L 500.2500, L100.0100 ####[facility] [address] [place], [address] Hemoglobin (Bld) [Mass/Vol] 9.7 g/dL Low 13.0-16. 5 [facility] Comment on above: Performed By: #### L 500.2500, L100.0100 ####[facility] [address] [place], [address] IG% 0.800 Normal 0.0-0.9 [facility] Comment on above: Result Comment: IG% - Immature Granulocytes (promyelocytes, myelocytes andmetamyelocytes) > 1% indicates that a LEFT SHIFT is Present. Performed By: #### L 500.2500, L100.0100 ####[facility] [address] [place], [address] Lymphocytes/100 WBC (Bld) 9.4 % Low 19-41 [facility] Comment on above: Performed By: #### L 500.2500, L100.0100 ####[facility] [address] [place], [address] MCH (RBC) [Entitic mass] 27.6 pg Normal 27.0-32.0 [facility] Comment on above: Performed By: #### L 500.2500, L100.0100 ####[facility] [address] [place], [address] MCHC (RBC) [Mass/Vol] 32.1 g/dL Normal 32-36 [facility] Comment on above: Performed By: #### L 500.2500, L100.0100 ####[facility] [address] [place], [address] MCV (RBC) [Entitic vol] 85.8 fL Normal 80-94 [facility] Comment on above: Performed By: #### L 500.2500, L100.0100 ####[facility] [address] [place], [address] Monocytes/100 WBC (Bld) 8.0 % Normal 0-10 [facility] Comment on above: Performed By: #### L 500.2500, L100.0100 ####[facility] [address] [place], [address] Neutrophils/100 WBC (Bld) 76.4 % High 47-70 [facility] Comment on above: Performed By: #### L 500.2500, L100.0100 ####[facility] [address] [place], [address] Nucleated RBC (Bld) [#/Vol] 0 10*3/uL Normal 0-5 [facility] Comment on above: Performed By: #### L 500.2500, L100.0100 ####[facility] [address] [place], [address] Platelet mean volume (Bld) [Entitic vol] 9.2 fL Normal 6.2-12.0 [facility] Comment on above: Performed By: #### L 500.2500, L100.0100 ####[facility] [address] [place], [address] Platelets (Bld) [#/Vol] 232 10*3/uL Normal 150-450 [facility] Comment on above: Performed By: #### L 500.2500, L100.0100 ####[facility] [address] [place], [address] RBC (Bld) [#/Vol] 3.52 10*6/uL Low 4.6-6.2 [facility] Comment on above: Performed By: #### L 500.2500, L100.0100 ####[facility] [address] [place], [address] RDW SD 43.1 fl Normal 35.1-43.9 [facility] Comment on above: Performed By: #### L 500.2500, L100.0100 ####[facility] [address] [place], [address] WBC (Bld) [#/Vol] 10.7 10*3/uL Normal 4.4-11.0 [facility] Comment on above: Performed By: #### L 500.2500, L100.0100 ####[facility] [address] [place], [address] Decalcification bone/plaqueo n 02-05-2025 Decalcification bone/plaque Normal [facility] Comment on above: Performed By: #### P DEC ####[facility] [address] [place], [address] Foot min 3 Viewson 5 Foot min 3 Views Normal [facility] Fungus cultureOrdered By: Eddie Mejia on 02-05-2025 Fungus identified Cx Nom (Unsp spec) [facility] Fungus stainOrdered By: Akshat Mejia on 02-05-2025 Fungus identified Fungus stain Nom (Unsp spec) [facility] Gram stainOrdered By: Yeni Mejia on 02-05-2025 Microscopic observation Gram stain Nom (Unsp spec) [facility] M8200.1000on 02-05-2025 M8200.1000 Normal Reference Range = Negative MRSA DNA Nose Ql ANGELY+probe GeneXpert Instrument, PCR method MRSA PCR MRSA NEGATIVE Normal [facility] Comment on above: Performed By: #### M 8200.1000 ####[facility] [address] [place], [address] MR/POSTOP.ANEon 02-05-2025 MR/POSTOP.ANE Normal [facility] Magnetic resonance imaging r eportOrdered By: Jay Barrow on 02-05-2025 Study report [facility] Nasal methicillin resistant Staphylococcus aureus (MRSA) DNA detection by PCROrdered By: Karen Aly on 02-05-2025 MRSA DNA ANGELY+probe Ql (Nose) [facility] Operative Reporton Operative Report Normal [facility] Routine wound cultureOrdered By: Kee Mejia on 02-05-2025 Microbial culture, routine Meth. resista nt Staph. aureus Abnormal [facility] Basic Metabolic Profile (BMP )on 02-04-2025 BUN/CRE 17.8 RATIO Normal 10-20 [facility] Comment on above: Performed By: #### L 500.2500, L100.0100 ####[facility] [address] [place], [address] Calcium [Mass/Vol] 8.3 mg/dL Normal 7.6-11.0 [facility] Comment on above: Performed By: #### L 500.2500, L100.0100 ####[facility] [address] [place], [address] Chloride [Moles/Vol] 110 mmol/L High 98-108 [facility] Comment on above: Performed By: #### L 500.2500, L100.0100 ####[facility] [address] [place], [address] CO2 [Moles/Vol] 23.0 mmol/L Normal 21.0-32.0 [facility] Comment on above: Performed By: #### L 500.2500, L100.0100 ####[facility] [address] [place], [place], [address] Creatinine [Mass/Vol] 1.49 mg/dL High 0.70-1.20 [facility] Comment on above: Performed By: #### L 500.2500, L100.0100 ####[facility] [address] [place], [address] ECRCL 55.04 ml/min Normal 50-250 [facility] Comment on above: Performed By: #### L 500.2500, L100.0100 ####[facility] [address] [place], [address] GAP 9 Normal 5-15 [facility] Comment on above: Performed By: #### L 500.2500, L100.0100 ####[facility] [address] [place], [address] GFR/1.73 sq M.predicted among non-blacks MDRD (S/P/Bld) [Vol rate/Area] 48 mL/min/{1.73_m2} Low >60 [facility] Comment on above: Result Comment: mL/m in/1.73m2 CKD-EPI Creatinine Equation (2020) Performed By: #### L 500.2500, L100.0100 ####[facility] [address] [place], [address] Glucose [Mass/Vol] 170 mg/dL High 70-99 [facility] Comment on above: Performed By: #### L 500.2500, L100.0100 ####[facility] [address] [place], [address] Potassium [Moles/Vol] 3.9 mmol/L Normal 3.3-5.1 [facility] Comment on above: Performed By: #### L 500.2500, L100.0100 ####[facility] [address] [place], [address] Sodium [Moles/Vol] 142 mmol/L Normal 133-145 [facility] Comment on above: Performed By: #### L 500.2500, L100.0100 ####[facility] [address] [place], [address] Urea nitrogen [Mass/Vol] 27 mg/dL High 4-19 [facility] Comment on above: Performed By: #### L 500.2500, L100.0100 ####[facility] [address] [place], [address] Bedside Glucoseon - FINGERSTICK GLU 176 mg/dL High 74-106 [facility] Comment on above: Result Comment: JAZ GEMENT OF PATIENT CARE PER NURSING PROTOCOL Performed By: #### L 501.080 ####[facility] [address] [place], [address] FINGERSTICK GLU 143 mg/dL High 74-106 [facility] Comment on above: Result Comment: JAZ GEMENT OF PATIENT CARE PER NURSING PROTOCOL Performed By: #### L 501.080 ####[facility] [address] [place], [address] FINGERSTICK GLU 171 mg/dL High 74-106 [facility] Comment on above: Result Comment: JAZ GEMENT OF PATIENT CARE PER NURSING PROTOCOL Performed By: #### L 501.080 ####[facility] [address] [place], [address] FINGERSTICK GLU 169 mg/dL High 74-106 [facility] Comment on above: Result Comment: JAZ GEMENT OF PATIENT CARE PER NURSING PROTOCOL Performed By: #### L 501.080 ####[facility] [address] [place], [address] CBC W/Diff, Automatedon 07-2 Absolute Lymph 0.61 X10 3/uL Low 0.83-4.51 [facility] Comment on above: Performed By: #### L 500.2500, L100.0100 ####[facility] [address] [place], [address] Absolute Neut 9.2 X10 3/uL High 2.0-7.7 [facility] Comment on above: Performed By: #### L 500.2500, L100.0100 ####[facility] [address] [place], [address] Basophils/100 WBC (Bld) 0.3 % Normal 0-1 [facility] Comment on above: Performed By: #### L 500.2500, L100.0100 ####[facility] [address] [place], [address] Eosinophils/100 WBC (Bld) 4.1 % Normal 0-5 [facility] Comment on above: Performed By: #### L 500.2500, L100.0100 ####[facility] [address] [place], [address] Erythrocyte distribution width (RBC) [Ratio] 13.7 % Normal 11.6-14.6 [facility] Comment on above: Performed By: #### L 500.2500, L100.0100 ####[facility] [address] [place], [address] Hematocrit (Bld) [Volume fraction] 31.0 % Low 40-54 [facility] Comment on above: Performed By: #### L 500.2500, L100.0100 ####[facility] [address] [place], [address] Hemoglobin (Bld) [Mass/Vol] 10.1 g/dL Low 13.0-16. 5 [facility] Comment on above: Performed By: #### L 500.2500, L100.0100 ####[facility] [address] [place], [address] IG% 0.900 Normal 0.0-0.9 [facility] Comment on above: Result Comment: IG% - Immature Granulocytes (promyelocytes, myelocytes andmetamyelocytes) > 1% indicates that a LEFT SHIFT is Present. Performed By: #### L 500.2500, L100.0100 ####[facility] [address] [place], [address] Lymphocytes/100 WBC (Bld) 5.3 % Low 19-41 [facility] Comment on above: Performed By: #### L 500.2500, L100.0100 ####[facility] [address] [place], [address] MCH (RBC) [Entitic mass] 27.8 pg Normal 27.0-32.0 [facility] Comment on above: Performed By: #### L 500.2500, L100.0100 ####[facility] [address] [place], [address] MCHC (RBC) [Mass/Vol] 32.6 g/dL Normal 32-36 [facility] Comment on above: Performed By: #### L 500.2500, L100.0100 ####[facility] [address] [place], [address] MCV (RBC) [Entitic vol] 85.4 fL Normal 80-94 [facility] Comment on above: Performed By: #### L 500.2500, L100.0100 ####[facility] [address] [place], [address] Monocytes/100 WBC (Bld) 9.4 % Normal 0-[address] [facility] Comment on above: Performed By: #### L 500.2500, L100.0100 ####[facility] [address] [place], [address] Neutrophils/100 WBC (Bld) 80.0 % High 47-70 [facility] Comment on above: Performed By: #### L 500.2500, L100.0100 ####[facility] [address] [place], [address] Nucleated RBC (Bld) [#/Vol] 0 10*3/uL Normal 0-5 [facility] Comment on above: Performed By: #### L 500.2500, L100.0100 ####[facility] [address] [place], [address] Platelet mean volume (Bld) [Entitic vol] 9.3 fL Normal 6.2-12.0 [facility] Comment on above: Performed By: #### L 500.2500, L100.0100 ####[facility] [address] [place], [address] Platelets (Bld) [#/Vol] 193 10*3/uL Normal 150-450 [facility] Comment on above: Performed By: #### L 500.2500, L100.0100 ####[facility] [address] [place], [address] RBC (Bld) [#/Vol] 3.63 10*6/uL Low 4.6-6.2 [facility] Comment on above: Performed By: #### L 500.2500, L100.0100 ####[facility] [address] [place], [address] RDW SD 43.2 fl Normal 35.1-43.9 [facility] Comment on above: Performed By: #### L 500.2500, L100.0100 ####[facility] [address] [place], [address] WBC (Bld) [#/Vol] 11.4 10*3/uL High 4.4-11.0 [facility] Comment on above: Performed By: #### L 500.2500, L100.0100 ####[facility] [address] [place], [address] Consultation - Surgicalon Consultation - Surgical Normal [facility] Gram Stainon 02-04-2025 GS ONLY AEROBIC SWAB WA S SENT DRUGS WITH ANAROBES MAYBE INHIBITED. Gram Stain 4+ Gram positive cocci Rare Epithelial cells 4+ Gram positive rods Normal [facility] Comment on above: Performed By: #### M 100.4001, L8200.1075, M100.3000, M100.1999 ####[facility] [address] [place], [address] Lower Ext/No Jt/w/oon 2024 Lower Ext/No Jt/w/o Normal [facility] MRSA Wound DNA by PCRon 01-13 MRSA DNA ASSAY Positive Abnormal Negative [facility] Comment on above: Order Comment: Wound left foot Result Comment: [facility]25213 Edwar Mcdowell Mitchell.REPORT READ BACK BY SAME. AMENDED REPORT 02/04/25213 MRSA RESULT previously reported as: POSITIVE H Performed By: #### M 100.4001, L8200.1075, M100.3000, M100.1999 ####[facility] [address] [place], [address] Urine Cultureon 02-04-2025 URC Culture exhibits no growth. Normal [facility] Comment on above: Performed By: #### L 400.0001, M100.2200 ####[facility] [address] [place], [address] Vancomycin, Random Levelon 0 - VANCO, RANDOM 17.8 ug/mL High 0.0-15.0 [facility] Comment on above: Result Comment: VANC OMYCIN STANDARD DRUG THERAPY: CRITICAL VALUE IS > 15.0 mg/LVANCOMYCIN HIGH INTENSITY THERAPY: CRITICAL VALUE IS > 20.0 mg/LPLEASE CONTACT PHARMACY SERVICES (#7527) FOR INTERPRETATIONOF RESULTS. THIS RESULT DOES NOT REPRESENT A PEAK OR TROUGHLEVEL FOR THIS DRUG. Performed By: #### L 501.8850 ####[facility] [address] [place], [address] Vancomycin, Trough Levelon 0 - VANCO, TROUGH 21.4 ug/mL High 5.0-15.0 [facility] Comment on above: Order Comment: Comme nts: Trough to be drawn 30 mins prior to scheduled [id number] Result Comment: Jalen mmended goal trough ranges [...] therapy recommended for serious lifethreatening infections include:- Qvvjbsbyoo-Ptylecvvmrch-Clzdlkjdn (Ventilator/Healtcare Associated)-SepsisPLEASE CONTACT PHARMACY SERVICES (#8229) FOR INTERPRETATIONOF RESULTS. Performed By: #### L 501.8820 ####[facility] [address] [place], [place], [id number] Anaerobic cultureOrdered By: Kee Mejia on 02-03-2025 Bacteria identified Anaer cx Nom (Unsp spec) No anaerobic bacteria isolated. [facility] Arterial study reportOrdered By: Aneesh Ac on 02-03-2025 Noninvasive arteriosclerosis study report [facility] Work Phone: Bedside Glucoseon 02-03-2025 FINGERSTICK GLU 170 mg/dL High 74-106 [facility] Comment on above: Result Comment: JAZ GEMENT OF PATIENT CARE PER NURSING PROTOCOL Performed By: #### L 501.080 ####[facility] [address] [place], [address] FINGERSTICK GLU 154 mg/dL High 74-106 [facility] Comment on above: Result Comment: JZA GEMENT OF PATIENT CARE PER NURSING PROTOCOL Performed By: #### L 501.080 ####[facility] [address] [place], [address] FINGERSTICK GLU 140 mg/dL High 74-106 [facility] Comment on above: Result Comment: JAZ GEMENT OF PATIENT CARE PER NURSING PROTOCOL Performed By: #### L 501.080 ####[facility] [address] [place], [address] FINGERSTICK GLU 148 mg/dL High 74-106 [facility] Comment on above: Result Comment: JAZ GEMENT OF PATIENT CARE PER NURSING PROTOCOL Performed By: #### L 501.080 ####[facility] [address] [place], [address] FINGERSTICK GLU 140 mg/dL High 74-106 [facility] Comment on above: Result Comment: JAZ GEMENT OF PATIENT CARE PER NURSING PROTOCOL Performed By: #### L 501.080 ####[facility] [address] [place], [address] Bilirubin, totalOrdered By: Karen Aly on 02-03-2025 Bilirubin [Mass/Vol] 0.61 mg/dL 0.00-1.30 [facility] CBC W/Diff, Automatedon 01-13 PLT EST ADEQUATE Normal ADEQ [facility] Comment on above: Performed By: #### L 501.5200, L501.6710, L101.9900, L500.4050, L100.0100, L501.9985 ####[facility] [address] [place], [address] CRPon 02-03-2025 C-REACTIVE PROT 138.00 mg/L High 0.0-3.0 [facility] Comment on above: Performed By: #### L 501.5200, L501.6710, L101.9900, L500.4050, L100.0100, L501.9985 ####[facility] [address] [place], [address] Comprehensive Metabolic Prof ilon 02-03-2025 Albumin [Mass/Vol] 2.9 g/dL Low 3.4-4.8 [facility] Comment on above: Performed By: #### L 501.5200, L501.6710, L101.9900, L500.4050, L100.0100, L501.9985 ####[facility] [address] [place], [address] ALK PHOS 106 U/L Normal 40-129 [facility] Comment on above: Performed By: #### L 501.5200, L501.6710, L101.9900, L500.4050, L100.0100, L501.9985 ####[facility] [address] [place], [address] ALT [Catalytic activity/Vol] 9 U/L Normal <=46 [facility] Comment on above: Performed By: #### L 501.5200, L501.6710, L101.9900, L500.4050, L100.0100, L501.9985 ####[facility] [address] [place], [address] AST [Catalytic activity/Vol] 15 U/L Normal <=37 [facility] Comment on above: Result Comment: Hemo lysis present, Results??could be affected.?? Performed By: #### L 501.5200, L501.6710, L101.9900, L500.4050, L100.0100, L501.9985 ####[facility] [address] [place], [address] Bilirubin [Mass/Vol] 0.61 mg/dL Normal 0.00-1.30 [facility] Comment on above: Performed By: #### L 501.5200, L501.6710, L101.9900, L500.4050, L100.0100, L501.9985 ####[facility] [address] [place], [address] BUN/CRE 16.9 RATIO Normal 10-20 [facility] Comment on above: Performed By: #### L 501.5200, L501.6710, L101.9900, L500.4050, L100.0100, L501.9985 ####[facility] [address] [place], [address] Calcium [Mass/Vol] 8.3 mg/dL Normal 7.6-11.0 [facility] Comment on above: Performed By: #### L 501.5200, L501.6710, L101.9900, L500.4050, L100.0100, L501.9985 ####[facility] [address] [place], [address] Chloride [Moles/Vol] 107 mmol/L Normal 98-108 [facility] Comment on above: Performed By: #### L 501.5200, L501.6710, L101.9900, L500.4050, L100.0100, L501.9985 ####[facility] [address] [place], [address] CO2 [Moles/Vol] 18.1 mmol/L Low 21.0-32.0 [facility] Comment on above: Performed By: #### L 501.5200, L501.6710, L101.9900, L500.4050, L100.0100, L501.9985 ####[facility] [address] [place], [address] Creatinine [Mass/Vol] 1.10 mg/dL Normal 0.70-1.20 [facility] Comment on above: Performed By: #### L 501.5200, L501.6710, L101.9900, L500.4050, L100.0100, L501.9985 ####[facility] [address] [place], [address] GAP 14 Normal 5-15 [facility] Comment on above: Performed By: #### L 501.5200, L501.6710, L101.9900, L500.4050, L100.0100, L501.9985 ####[facility] [address] [place], [address] GFR/1.73 sq M.predicted among non-blacks MDRD (S/P/Bld) [Vol rate/Area] 69 mL/min/{1.73_m2} Normal >60 [facility] Comment on above: Result Comment: mL/m in/1.73m2 CKD-EPI Creatinine Equation (2020) Performed By: #### L 501.5200, L501.6710, L101.9900, L500.4050, L100.0100, L501.9985 ####[facility] [address] [place], [address] Glucose [Mass/Vol] 154 mg/dL High 70-99 [facility] Comment on above: Performed By: #### L 501.5200, L501.6710, L101.9900, L500.4050, L100.0100, L501.9985 ####[facility] [address] [place], [address] Potassium [Moles/Vol] 4.2 mmol/L Normal 3.3-5.1 [facility] Comment on above: Result Comment: Hemo lysis present, Results??could be affected.?? Performed By: #### L 501.5200, L501.6710, L101.9900, L500.4050, L100.0100, L501.9985 ####[facility] [address] [place], [address] Sodium [Moles/Vol] 139 mmol/L Normal 133-145 [facility] Comment on above: Performed By: #### L 501.5200, L501.6710, L101.9900, L500.4050, L100.0100, L501.9985 ####[facility] [address] [place], [place], [address] T PROT 5.6 g/dL Low 5.9-8.4 [facility] Comment on above: Performed By: #### L 501.5200, L501.6710, L101.9900, L500.4050, L100.0100, L501.9985 ####[facility] [address] [place], [place], [address] Urea nitrogen [Mass/Vol] 19 mg/dL Normal 4-19 [facility] Comment on above: Performed By: #### L 501.5200, L501.6710, L101.9900, L500.4050, L100.0100, L501.9985 ####[facility] [address] [place], [place], [address] Electrocardiogram reportOrde red By: Tuan Thakkar on 02-03-2025 EKG study [facility] Other Phone: Erythrocyte Sed Rateon 02-03 SED RATE 14 mm/hr Normal 0-20 [facility] Comment on above: Performed By: #### L 501.5200, L501.6710, L101.9900, L500.4050, L100.0100, L501.9985 ####[facility] [address] [place], [place], [address] Erythrocyte sedimentation ra teOrdered By: Karen White on 02-03-2025 ESR (Bld) [Velocity] 14 mm/h 0-20 [facility] Gram stainOrdered By: Yeni Mejia on 02-03-2025 Microscopic observation Gram stain Nom (Unsp spec) [facility] Hemoglobin A1con 02-03-2025 HbA1c (Bld) [Mass fraction] 6.7 % High <=5.6 [facility] Comment on above: Result Comment: Norm al < 5.7 % Prediabetic 5.7 - 6.4 % Diabetic >or= 6.5 % Please note range changes. Performed By: #### L 501.5200, L501.6710, L101.9900, L500.4050, L100.0100, L501.9985 ####[facility] [address] [place], [place], [address] Hemoglobin A1c percentageOrd ered By: Karen Jermain on 02-03-2025 HbA1c (Bld) [Mass fraction] 6.7 % High <5.7 [facility] Lactic Acidon 02-03-2025 Lactate [Moles/Vol] 1.6 mmol/L Normal 0.0-2.0 [facility] Comment on above: Performed By: #### L 503.6005 ####[facility] [address] [place], [place], [address] Lactic acid measurementOrder ed By: Nicholas Galarza on 02-03-2025 Lactate [Moles/Vol] 1.6 mmol/L 0.0-2.0 [facility] Legionella Antigen Urineon 0 02-03-2025 LEGU URINE, CLEAN CATCH Legionella Ag, Urine Negative (See interpretation below) Normal [facility] Comment on above: Performed By: #### M 300.4600, M300.4500 ####[facility] [address] [place], [place], [address] Lower Ext Art Exam w/o Exerc jimmy 02-03-2025 Lower Ext Art Exam w/o Exercis Normal [facility] MRSA Wound DNA by PCRon 01-13 MRSA DNA ASSAY Normal Negative [facility] Comment on above: Order Comment: left foot Result Comment: Canc elled via OM: Duplicate Order Performed By: #### L 8200.1075 ####[facility] [address] [place], [address] PROBE CHECK Normal [facility] Comment on above: Order Comment: left foot Result Comment: Canc elled via OM: Duplicate Order Performed By: #### L 8200.1075 ####[facility] [address] [place], [address] SA DNA ASSAY Normal Negative [facility] Comment on above: Order Comment: left foot Result Comment: Canc elled via OM: Duplicate Order Performed By: #### L 8200.1075 ####[facility] [address] [place], [address] SPC Normal [facility] Comment on above: Order Comment: left foot Result Comment: Canc elled via OM: Duplicate Order Performed By: #### L 8200.1075 ####[facility] [address] [place], [address] Magnesiumon 02-03-2025 Magnesium [Mass/Vol] 1.7 mg/dL Normal 1.5-2.2 [facility] Comment on above: Performed By: #### L 501.5200, L501.6710, L101.9900, L500.4050, L100.0100, L501.9985 ####[facility] [address] [place], [address] Magnesium measurement (mass/ volume)Ordered By: Karen Aly on 02-03-2025 Magnesium (Unsp spec) [Mass/Vol] 1.7 mg/dL 1.5-2.2 [facility] Platelet estimateOrdered By: Karen Aly on 02-03-2025 Platelets LM Ql (Bld) ADEQUATE ADEQ [facility] RESPIRATORY PANEL MOLECULARo n 02-03-2025 RP PANEL Normal [facility] Comment on above: Performed By: #### M 100.638 ####[facility] [address] [place], [address] Respiratory pathogens detect ion panel by molecular detection methodOrdered By: Karen Aly on 02-03-2025 Respiratory pathogens DNA and RNA panel ANGELY+probe (Resp) [facility] Routine wound cultureOrdered By: Kee Mejia on 02-03-2025 Microbial culture, routine Meth. resista nt Staph. aureus Abnormal [facility] Microbial culture, routine Enterobacter cloacae complex Abnormal [facility] Serum globulin measurementOr dered By: Karen Aly on 02-03-2025 Globulin (S) [Mass/Vol] 2.7 g/dL 2.2-4.2 [facility] Serum or plasma C reactive p rotein measurement (mass/volume)Ordered By: Karen Jermain on 02-03-2025 CRP [Mass/Vol] 138.00 mg/L High 0.0-3.0 [facility] Serum or plasma albumin antonie urement (mass/volume)Ordered By: on 02-03-2025 Albumin [Mass/Vol] 2.9 g/dL Low 3.4-4.8 [facility] Serum or plasma albumin/glob ulin mass ratioOrdered By: Karen Jermain on 02-03-2025 Albumin/Globulin [Mass ratio] 1.1 {ratio} 0.9-2.4 [facility] Serum or plasma alkaline marilin sphatase measurementOrdered By: on 02-03-2025 ALP [Catalytic activity/Vol] 106 U/L 40-129 [facility] Staphylococcus aureus DNA de tection by probe and target amplification methodOrdered By: Kee Mejia on 02-03-2025 S. aureus DNA ANGELY+probe Ql (Unsp spec) Positive High Negative [facility] Strep pneumoniae Antig(UR,CS F)on 02-03-2025 STPAG Normal [facility] Comment on above: Performed By: #### M 300.4600, M300.4500 ####[facility] [address] [place], [id number] Total proteinOrdered By: Aut umn Jermain on 02-03-2025 Protein [Mass/Vol] 5.6 g/dL Low 5.9-8.4 [facility] 12 Lead EKGon 02-02-2025 12 Lead EKG Normal [facility] Absolute lymphocyte countOrd ered By: Nicholas Galarza on 02-02-2025 Lymphocytes Auto (Unsp spec) [#/Vol] 0.50 10*3/uL Low 0.83-4.51 [facility] Absolute neutrophil countOrd ered By: Nicholas Galarza on 02-02-2025 Neutrophils (Bld) [#/Vol] 12.0 10*3/uL High 2.0-7.7 [facility] Activated partial thrombopla stin time (aPTT) in platelet poor plasma by coagulation aOrdered By: Nicholas Galarza on 02-02-2025 aPTT Coag (PPP) [Time] 34.0 s 24.1-36.2 [facility] Anion gap in Serum or Plasma Ordered By: Nicholas Galarza on 02-02-2025 Anion gap [Moles/Vol] 14 mmol/L 5-15 [facility] Automated lymphocyte count a s percentage of total leukocytesOrdered By: Nicholas Galarza on 02-02-2025 Lymphocytes/100 WBC Auto (Unsp spec) 3.6 % Low 19-41 [facility] BUN/creatinine ratioOrdered By: Nicholas Galarza on 02-02-2025 Urea nitrogen/Creatinine [Mass ratio] 17.0 mg/mg 10-20 [facility] Basophil percentageOrdered B y: Nicholas Galarza on 02-02-2025 Basophils/100 WBC (Bld) 0.2 % 0-1 [facility] Bilirubin Test strip Ql (U)O rdered By: Nicholas Galarza on 02-02-2025 Bilirubin Ql (U) Negative Negative [facility] Bilirubin, totalOrdered By: Nicholas Galarza on 02-02-2025 Bilirubin [Mass/Vol] 0.50 mg/dL 0.00-1.30 [facility] Blood cultureOrdered By: Hermes Galarza on 02-02-2025 Bacteria identified Cx Nom (Bld) No growth in 5 days. [facility] Bacteria identified Cx Nom (Bld) No growth in 5 days. [facility] Brain/Head without Contrasto n 02-02-2025 Brain/Head without Contrast Normal [facility] CBC W/Diff, Automatedon 01-13 Absolute Lymph 0.50 X10 3/uL Low 0.83-4.51 [facility] Comment on above: Performed By: #### M 200.1000, L100.0100, L300.3900, L300.4310, L503.6005, L500.4050 ####[facility] [address] [place], [place], [id number] Absolute Neut 12.0 X10 3/uL High 2.0-7.7 [facility] Comment on above: Performed By: #### M 200.1000, L100.0100, L300.3900, L300.4310, L503.6005, L500.4050 ####[facility] [address] [place], [address] Basophils/100 WBC (Bld) 0.2 % Normal 0-1 [facility] Comment on above: Performed By: #### M 200.1000, L100.0100, L300.3900, L300.4310, L503.6005, L500.4050 ####[facility] [address] [place], [address] Eosinophils/100 WBC (Bld) 0.6 % Normal 0-5 [facility] Comment on above: Performed By: #### M 200.1000, L100.0100, L300.3900, L300.4310, L503.6005, L500.4050 ####[facility] [address] [place], [address] Erythrocyte distribution width (RBC) [Ratio] 13.6 % Normal 11.6-14.6 [facility] Comment on above: Performed By: #### M 200.1000, L100.0100, L300.3900, L300.4310, L503.6005, L500.4050 ####[facility] [address] [place], [address] Hematocrit (Bld) [Volume fraction] 33.5 % Low 40-54 [facility] Comment on above: Performed By: #### M 200.1000, L100.0100, L300.3900, L300.4310, L503.6005, L500.4050 ####[facility] [address] [place], [address] Hemoglobin (Bld) [Mass/Vol] 10.9 g/dL Low 13.0-16. 5 [facility] Comment on above: Performed By: #### M 200.1000, L100.0100, L300.3900, L300.4310, L503.6005, L500.4050 ####[facility] [address] [place], [address] IG% 0.700 Normal 0.0-0.9 [facility] Comment on above: Result Comment: IG% - Immature Granulocytes (promyelocytes, myelocytes andmetamyelocytes) > 1% indicates that a LEFT SHIFT is Present. Performed By: #### M 200.1000, L100.0100, L300.3900, L300.4310, L503.6005, L500.4050 ####[facility] [address] [place], [address] Lymphocytes/100 WBC (Bld) 3.6 % Low 19-41 [facility] Comment on above: Performed By: #### M 200.1000, L100.0100, L300.3900, L300.4310, L503.6005, L500.4050 ####[facility] [address] [place], [address] MCH (RBC) [Entitic mass] 27.7 pg Normal 27.0-32.0 [facility] Comment on above: Performed By: #### M 200.1000, L100.0100, L300.3900, L300.4310, L503.6005, L500.4050 ####[facility] [address] [place], [address] MCHC (RBC) [Mass/Vol] 32.5 g/dL Normal 32-36 [facility] Comment on above: Performed By: #### M 200.1000, L100.0100, L300.3900, L300.4310, L503.6005, L500.4050 ####[facility] [address] [place], [address] MCV (RBC) [Entitic vol] 85.0 fL Normal 80-94 [facility] Comment on above: Performed By: #### M 200.1000, L100.0100, L300.3900, L300.4310, L503.6005, L500.4050 ####[facility] [address] [place], [address] Monocytes/100 WBC (Bld) 8.7 % Normal 0-10 [facility] Comment on above: Performed By: #### M 200.1000, L100.0100, L300.3900, L300.4310, L503.6005, L500.4050 ####[facility] [address] [place], [address] Neutrophils/100 WBC (Bld) 86.2 % High 47-70 [facility] Comment on above: Performed By: #### M 200.1000, L100.0100, L300.3900, L300.4310, L503.6005, L500.4050 ####[facility] [address] [place], [address] Nucleated RBC (Bld) [#/Vol] 0 10*3/uL Normal 0-5 [facility] Comment on above: Performed By: #### M 200.1000, L100.0100, L300.3900, L300.4310, L503.6005, L500.4050 ####[facility] [address] [place], [address] Platelet mean volume (Bld) [Entitic vol] 9.4 fL Normal 6.2-12.0 [facility] Comment on above: Performed By: #### M 200.1000, L100.0100, L300.3900, L300.4310, L503.6005, L500.4050 ####[facility] [address] [place], [address] Platelets (Bld) [#/Vol] 203 10*3/uL Normal 150-450 [facility] Comment on above: Performed By: #### M 200.1000, L100.0100, L300.3900, L300.4310, L503.6005, L500.4050 ####[facility] [address] [place], [address] RBC (Bld) [#/Vol] 3.94 10*6/uL Low 4.6-6.2 [facility] Comment on above: Performed By: #### M 200.1000, L100.0100, L300.3900, L300.4310, L503.6005, L500.4050 ####[facility] [address] [place], [address] RDW SD 42.2 fl Normal 35.1-43.9 [facility] Comment on above: Performed By: #### M 200.1000, L100.0100, L300.3900, L300.4310, L503.6005, L500.4050 ####[facility] [address] [place], [address] WBC (Bld) [#/Vol] 13.9 10*3/uL High 4.4-11.0 [facility] Comment on above: Performed By: #### M 200.1000, L100.0100, L300.3900, L300.4310, L503.6005, L500.4050 ####[facility] [address] [place], [address] CRPon 02-02-2025 C-REACTIVE PROT 94.50 mg/L High 0.0-3.0 [facility] Comment on above: Order Comment: Comme nts: may add to ED labs Performed By: #### L 501.5200, L501.6710, L101.9900 ####[facility] [address] [place], [address] Carbon dioxide, total [Moles /volume] in Central venous bloodOrdered By: Nicholas Galarza on 02-02-2025 CO2 [Moles/Vol] 22.4 mmol/L 21.0-32.0 [facility] Chest 1 View (Portable)on Chest 1 View (Portable) Normal [facility] Chloride assayOrdered By: Jose Juan Galarza on 02-02-2025 Chloride [Moles/Vol] 104 mmol/L 98-108 [facility] Comprehensive Metabolic Prof ilon 02-02-2025 Albumin [Mass/Vol] 3.5 g/dL Normal 3.4-4.8 [facility] Comment on above: Performed By: #### M 200.1000, L100.0100, L300.3900, L300.4310, L503.6005, L500.4050 ####[facility] [address] [place], [address] Albumin/Globulin [Mass ratio] 1.5 {ratio} Normal 0.9-2.4 [facility] Comment on above: Performed By: #### M 200.1000, L100.0100, L300.3900, L300.4310, L503.6005, L500.4050 ####[facility] [address] [place], [address] ALK PHOS 115 U/L Normal 40-129 [facility] Comment on above: Performed By: #### M 200.1000, L100.0100, L300.3900, L300.4310, L503.6005, L500.4050 ####[facility] [address] [place], [address] ALT [Catalytic activity/Vol] 10 U/L Normal <=46 [facility] Comment on above: Performed By: #### M 200.1000, L100.0100, L300.3900, L300.4310, L503.6005, L500.4050 ####[facility] [address] [place], [address] AST [Catalytic activity/Vol] 15 U/L Normal <=37 [facility] Comment on above: Performed By: #### M 200.1000, L100.0100, L300.3900, L300.4310, L503.6005, L500.4050 ####[facility] [address] [place], [address] Bilirubin [Mass/Vol] 0.50 mg/dL Normal 0.00-1.30 [facility] Comment on above: Performed By: #### M 200.1000, L100.0100, L300.3900, L300.4310, L503.6005, L500.4050 ####[facility] [address] [place], [address] BUN/CRE 17.0 RATIO Normal 10-20 [facility] Comment on above: Performed By: #### M 200.1000, L100.0100, L300.3900, L300.4310, L503.6005, L500.4050 ####[facility] [address] [place], [address] Calcium [Mass/Vol] 8.7 mg/dL Normal 7.6-11.0 [facility] Comment on above: Performed By: #### M 200.1000, L100.0100, L300.3900, L300.4310, L503.6005, L500.4050 ####[facility] [address] [place], [address] Chloride [Moles/Vol] 104 mmol/L Normal 98-108 [facility] Comment on above: Performed By: #### M 200.1000, L100.0100, L300.3900, L300.4310, L503.6005, L500.4050 ####[facility] [address] [place], [address] CO2 [Moles/Vol] 22.4 mmol/L Normal 21.0-32.0 [facility] Comment on above: Performed By: #### M 200.1000, L100.0100, L300.3900, L300.4310, L503.6005, L500.4050 ####[facility] [address] [place], [address] Creatinine [Mass/Vol] 1.04 mg/dL Normal 0.70-1.20 [facility] Comment on above: Performed By: #### M 200.1000, L100.0100, L300.3900, L300.4310, L503.6005, L500.4050 ####[facility] [address] [place], [address] ECRCL 79.39 ml/min Normal 50-250 [facility] Comment on above: Performed By: #### M 200.1000, L100.0100, L300.3900, L300.4310, L503.6005, L500.4050 ####[facility] [address] [place], [address] GAP 14 Normal 5-15 [facility] Comment on above: Performed By: #### M 200.1000, L100.0100, L300.3900, L300.4310, L503.6005, L500.4050 ####[facility] [address] [place], [address] GFR/1.73 sq M.predicted among non-blacks MDRD (S/P/Bld) [Vol rate/Area] 74 mL/min/{1.73_m2} Normal >60 [facility] Comment on above: Result Comment: mL/m in/1.73m2 CKD-EPI Creatinine Equation (2020) Performed By: #### M 200.1000, L100.0100, L300.3900, L300.4310, L503.6005, L500.4050 ####[facility] [address] [place], [address] Globulin (S) [Mass/Vol] 2.3 g/dL Normal 2.2-4.[address] [facility] Comment on above: Performed By: #### M 200.1000, L100.0100, L300.3900, L300.4310, L503.6005, L500.4050 ####[facility] [address] [place], [address] Glucose [Mass/Vol] 195 mg/dL High 70-99 [facility] Comment on above: Performed By: #### M 200.1000, L100.0100, L300.3900, L300.4310, L503.6005, L500.4050 ####[facility] [address] [place], [address] Potassium [Moles/Vol] 3.8 mmol/L Normal 3.3-5.1 [facility] Comment on above: Performed By: #### M 200.1000, L100.0100, L300.3900, L300.4310, L503.6005, L500.4050 ####[facility] [address] [place], [address] Sodium [Moles/Vol] 141 mmol/L Normal 133-145 [facility] Comment on above: Performed By: #### M 200.1000, L100.0100, L300.3900, L300.4310, L503.6005, L500.4050 ####[facility] [address] [place], [address] T PROT 5.8 g/dL Low 5.9-8.4 [facility] Comment on above: Performed By: #### M 200.1000, L100.0100, L300.3900, L300.4310, L503.6005, L500.4050 ####[facility] [address] [place], [address] Urea nitrogen [Mass/Vol] 18 mg/dL Normal 4-19 [facility] Comment on above: Performed By: #### M 200.1000, L100.0100, L300.3900, L300.4310, L503.6005, L500.4050 ####[facility] [address] [place], [address] Emergency Department Summary on 02-02-2025 Emergency Department Summary Normal [facility] Eosinophil percentageOrdered By: Nicholas Galarza on 02-02-2025 Eosinophils/100 WBC (Bld) 0.6 % 0-5 [facility] Erythrocyte Sed Rateon 02-02 SED RATE 23 mm/hr High 0-20 [facility] Comment on above: Performed By: #### L 501.5200, L501.6710, L101.9900 ####[facility] [address] [place], [address] Erythrocyte distribution wid th ratioOrdered By: Nicholas Galarza on 02-02-2025 Erythrocyte distribution width (RBC) [Ratio] 13.6 % 11.6-14.6 [facility] Erythrocyte distribution wid th standard deviationOrdered By: Nicholas Galarza on 02-02-2025 Erythrocyte distribution width (RBC) [Ratio] 42.2 fl 35.1-43.9 [facility] Erythrocyte sedimentation ra teOrdered By: Karen White on 02-02-2025 ESR (Bld) [Velocity] 23 mm/h High 0-20 [facility] Foot 2 Viewson 02-02-2025 Foot 2 Views Normal [facility] Glomerular filtration rate ( GFR) estimation/1.73 sq m using serum, plasma, or whole bOrdered By: Nicholas Galarza on 02-02-2025 GFR/1.73 sq M.predicted among non-blacks MDRD (S/P/Bld) [Vol rate/Area] 74 mL/min/{1.73_m2} >60 [facility] Comment on above: mL/min/1.73m2 CKD-EP I Creatinine Equation (2020) H AND P Exam - Hospitaliston 02-02-2025 H&P Exam - Hospitalist Normal [facility] Hematocrit Auto (Bld) [Volum e fraction]Ordered By: Nicholas Galarza on 02-02-2025 Hematocrit (Bld) [Volume fraction] 33.5 % Low 40-54 [facility] Hemoglobin measurementOrdere d By: Nicholas Galarza on 02-02-2025 Hemoglobin (Bld) [Mass/Vol] 10.9 g/dL Low 13.0-16. 5 [facility] Immature granulocytes/100 WB C Auto (Bld)Ordered By: Nicholas Galarza on 02-02-2025 Immature granulocytes/100 WBC (Bld) 0.700 % 0.0-0.9 [facility] Comment on above: IG% - Immature Granu locytes (promyelocytes, myelocytes and metamyelocytes) > 1% indicates that a LEFT SHIFT is Present. International normalized rat io (INR) calculationOrdered By: Nicholas Galarza on 02-02-2025 INR Coag (Bld) [Relative time] 1.4 {INR} [facility] Ketones Test strip Ql (U)Ord ered By: Nicholas Galarza on 02-02-2025 Ketones Ql (U) Negative Negative [facility] Laboratory - Chemistry and C hemistry - challengeOrdered By: Nicholas Galarza on 02-02-2025 AST [Catalytic activity/Vol] 15 U/L <38 [facility] Lactic Acidon 02-02-2025 Lactate [Moles/Vol] 3.1 mmol/L Invalid Interpretation Code 0.0-2.0 [facility] Comment on above: Order Comment: Y Result Comment: Crit ical Result(s) Called at: 2106 by: EVON RAMANWinnie??Results read back by same. Performed By: #### M 200.1000, L100.0100, L300.3900, L300.4310, L503.6005, L500.4050 ####[facility] [address] [place], [address] MCV (mean corpuscular volume ) determinationOrdered By: Nicholas Galarza on 02-02-2025 MCV (RBC) [Entitic vol] 85.0 fL 80-94 [facility] Magnesiumon 02-02-2025 Magnesium [Mass/Vol] 0.9 mg/dL Invalid Interpretation Code 1.5-2.2 [facility] Comment on above: Order Comment: Comme nts: may add to ED labs Result Comment: Crit ical Result(s) Called at:2346 by: KIM MARTINEZ??Results read back by same. Performed By: #### L 501.5200, L501.6710, L101.9900 ####[facility] [address] [place], [place], [address] Magnesium measurement (mass/ volume)Ordered By: Karen Aly on 02-02-2025 Magnesium (Unsp spec) [Mass/Vol] 0.9 mg/dL Low 1.5-2.2 [facility] Comment on above: Critical Result(s) C alled at:2346 by: KIM ADRIAN Results read back by same. Mean corpuscular hemoglobin (MCH) determinationOrdered By: Nicholas Galarza on 02-02-2025 MCH (RBC) [Entitic mass] 27.7 pg 27.0-32.0 [facility] Mean corpuscular hemoglobin concentration (MCHC) determinationOrdered By: Nicholas Galarza on 02-02-2025 MCHC (RBC) [Mass/Vol] 32.5 g/dL 32-36 [facility] Mean platelet volume determi nationOrdered By: Nicholas Galarza on 02-02-2025 Platelet mean volume (Bld) [Entitic vol] 9.4 fL 6.2-12.0 [facility] Microscopic analysis of urin e for red blood cells (RBC)Ordered By: Nicholas Galarza on 02-02-2025 Microscopic analysis of urine for red blood cells (RBC) 5-10 SEEN /hpf 0-5 [facility] Monocyte percentageOrdered B y: Nicholas Galarza on 02-02-2025 Monocytes/100 WBC (Bld) 8.7 % 0-10 [facility] Mucus LM Ql (Urine sed)Order ed By: Nicholas Galarza on 02-02-2025 Mucus Ql (Urine sed) 0 SEEN /hpf [facility] Neutrophil percentageOrdered By: Nicholas Galarza on 02-02-2025 Neutrophils/100 WBC (Bld) 86.2 % High 47-70 [facility] Nitrite Test strip Ql (U)Ord ered By: Nicholas Galarza on 02-02-2025 Nitrite Ql (U) Negative Negative [facility] Nucleated red blood cell per centageOrdered By: Nicholas Galarza on 02-02-2025 Nucleated RBC/100 WBC (Bld) [Ratio] 0 % 0-5 [facility] Partial Thromboplast Timeon 02-02-2025 aPTT Coag (Bld) [Time] 34.0 s Normal 24.1-36.2 [facility] Comment on above: Performed By: #### M 200.1000, L100.0100, L300.3900, L300.4310, L503.6005, L500.4050 ####[facility] [address] [place], [place], [address] Platelet countOrdered By: Jose Juan Galarza on 02-02-2025 Platelets (Bld) [#/Vol] 203 10*3/uL 150-450 [facility] Potassium measurement (mass/ volume)Ordered By: Nicholas Galarza on 02-02-2025 Potassium (Unsp spec) [Mass/Vol] 3.8 mmol/L 3.3-5.1 [facility] Protein Test strip Ql (U)Ord ered By: Nciholas Galarza on 02-02-2025 Protein Ql (U) 30 mg/dl High Negative [facility] Prothrombin Time w/INRon INR Coag (PPP) [Relative time] 1.4 {INR} Normal [facility] Comment on above: Performed By: #### M 200.1000, L100.0100, L300.3900, L300.4310, L503.6005, L500.4050 ####[facility] [address] [place], [address] PT Coag (PPP) [Time] 17.3 s High 11.7-14.9 [facility] Comment on above: Performed By: #### M 200.1000, L100.0100, L300.3900, L300.4310, L503.6005, L500.4050 ####[facility] [address] [place], [address] Prothrombin timeOrdered By: Nicholas Galarza on 02-02-2025 PT Coag (PPP) [Time] 17.3 s High 11.7-14.9 [facility] RBC Auto (Bld) [#/Vol]Ordere d By: Nicholas Galarza on 02-02-2025 RBC (Bld) [#/Vol] 3.94 10*6/uL Low 4.6-6.2 [facility] Serum creatinine measurement (mass/volume)Ordered By: Nicholas Galarza on 02-02-2025 Creatinine [Mass/Vol] 1.04 mg/dL 0.70-1.20 [facility] Serum globulin measurementOr dered By: Nicholas Galarza on 02-02-2025 Globulin (S) [Mass/Vol] 2.3 g/dL 2.2-4.2 [facility] Serum glucose measurement (m ass/volume)Ordered By: Nicholas Galarza on 02-02-2025 Glucose [Mass/Vol] 195 mg/dL High 70-99 [facility] Serum or plasma C reactive p rotein measurement (mass/volume)Ordered By: Karen Aly on 02-02-2025 CRP [Mass/Vol] 94.50 mg/L High 0.0-3.0 [facility] Serum or plasma alanine davis otransferase (ALT) measurementOrdered By: Nicholas Galarza on 02-02-2025 ALT [Catalytic activity/Vol] 10 U/L <47 [facility] Serum or plasma albumin antoine urement (mass/volume)Ordered By: Nicholas Galarza on 02-02-2025 Albumin [Mass/Vol] 3.5 g/dL 3.4-4.8 [facility] Serum or plasma albumin/glob ulin mass ratioOrdered By: Nicholas Galarza on 02-02-2025 Albumin/Globulin [Mass ratio] 1.5 {ratio} 0.9-2.4 [facility] Serum or plasma alkaline marilin sphatase measurementOrdered By: Nicholas Galarza on 02-02-2025 ALP [Catalytic activity/Vol] 115 U/L 40-129 [facility] Serum or plasma calcium antoine urement (mass/volume)Ordered By: Nicholas Galarza on 02-02-2025 Calcium [Mass/Vol] 8.7 mg/dL 7.6-11.0 [facility] Serum or plasma urea nitroge n measurement (mass/volume)Ordered By: Nicholas Galarza on 02-02-2025 Urea nitrogen [Mass/Vol] 18 mg/dL 4-19 [facility] Sodium levelOrdered By: Supriya Galarza on 02-02-2025 Sodium [Moles/Vol] 141 mmol/L 133-145 [facility] Squamous epithelial cells de tection in urine sediment by light microscopyOrdered By: Nicholas Galarza on 02-02-2025 Epithelial cells.squamous LM Ql (Urine sed) 0-5 SEEN /hpf 0-5 [facility] Total proteinOrdered By: Hermes Galarza on 02-02-2025 Protein [Mass/Vol] 5.8 g/dL Low 5.9-8.4 [facility] Urinalysis, Completeon 02-02 BACTERIA 1+ /hpf Normal None Seen [facility] Comment on above: Order Comment: LEILA TER SPECIMEN Performed By: #### L 400.0001, ####[facility] [address] [place], [address] EPI,SQUAMOUS 0-5 SEEN Normal 0-5 [facility] Comment on above: Order Comment: LEILA TER SPECIMEN Performed By: #### L 400.0001, ####[facility] [address] [place], [address] RBC 5-10 SEEN Normal 0-5 [facility] Comment on above: Order Comment: LEILA TER SPECIMEN Performed By: #### L 400.0001, M100.2200 ####[facility] [address] [place], [address] WBC 5-10 SEEN Normal 0-5 [facility] Comment on above: Order Comment: LEILA TER SPECIMEN Performed By: #### L 400.0001, M100.2200 ####[facility] [address] [place], [address] Mucus Ql (Urine sed) 0 SEEN Normal [facility] Comment on above: Order Comment: LEILA TER SPECIMEN Performed By: #### L 400.0001, M100.2200 ####[facility] [address] [place], [address] Urine Legionella pneumophila antigen detectionOrdered By: Karen White on 02-02-2025 L. pneumophila Ag Ql (U) [facility] Urine clarityOrdered By: Hermes Galarza on 02-02-2025 Clarity (U) Clear Clear [facility] Urine color determinationOrd ered By: Nicholas Galarza on 02-02-2025 Color (U) Yellow Yellow [facility] Urine cultureOrdered By: Hermes Galarza on 02-02-2025 Bacteria identified Cx Nom (U) Culture exhibits no growth. [facility] Urine glucose detectionOrder ed By: Nicholas Galarza on 02-02-2025 Glucose Ql (U) 250 mg/dl High Normal [facility] Urine leukocyte esterase det ection by dipstickOrdered By: Nicholas Galarza on 02-02-2025 Leukocyte esterase Test strip Ql (U) Negative Negative [facility] Urine pHOrdered By: Nicholas ron on 02-02-2025 pH (U) 5.0 [pH] 5.0 - 8.0 [facility] Urine sediment bacteria coun t by microscopy (number/high power field)Ordered By: Nicholas Galarza on 02-02-2025 Bacteria LM.HPF (Urine sed) [#/Area] 1 /[HPF] None Seen [facility] Urine specific gravity measu rementOrdered By: Nicholas Galarza on 02-02-2025 Specific gravity (U) [Rel density] 1.015 1.002-1.03 0 [facility] Urine urobilinogen measureme ntOrdered By: Nicholas Galarza on 02-02-2025 Urobilinogen Ql (U) Normal mg/dl Normal [facility] White blood cell (WBC) count Ordered By: Nicholas Galarza on 02-02-2025 WBC (Bld) [#/Vol] 13.9 10*3/uL High 4.4-11.0 [facility] White blood cell countOrdere d By: Nicholas Galarza on 02-02-2025 White blood cell count 5-10 SEEN /hpf 0-5 [facility] Anion gap in Serum or Plasma Ordered By: Walter Becker on 12-22-2024 Anion gap [Moles/Vol] 10 mmol/L 5-15 [facility] Automated blood erythrocyte countOrdered By: Walter Becker on 12-22-2024 RBC (Bld) [#/Vol] 4.43 10*6/uL Low 4.6-6.2 [facility] Comment on above: Order Comment: 215.2 Performed By: #### L 500.4050, L100.0500, L501.9985 ####[facility] [address] [place], [place], [id number] Automated blood hematocrit ( percentage)Ordered By: Walter Becker on 12-22-2024 Hematocrit (Bld) [Volume fraction] 37.9 % Low 40-54 [facility] Comment on above: Order Comment: 215.2 Performed By: #### L 500.4050, L100.0500, L501.9985 ####[facility] [address] [place], [place], [id number] BUN/creatinine ratioOrdered By: Walter Becker on 12-22-2024 Urea nitrogen/Creatinine [Mass ratio] 19.8 mg/mg 10-20 [facility] Bilirubin, totalOrdered By: Walter Becker on 12-22-2024 Bilirubin [Mass/Vol] 0.43 mg/dL 0.00-1.30 [facility] CBC-Complete Blood Cnt No Di ffon 12-22-2024 RDW SD 41.9 fl Normal 35.1-43.9 [facility] Comment on above: Order Comment: 215.2 Performed By: #### L 500.4050, L100.0500, L501.9985 ####[facility] [address] [place], [address] Carbon dioxide, total [Moles /volume] in Central venous bloodOrdered By: Walter Becker on 12-22-2024 CO2 [Moles/Vol] 26.7 mmol/L 21.0-32.0 [facility] Chloride assayOrdered By: Horner on 12-22-2024 Chloride [Moles/Vol] 103 mmol/L 98-108 [facility] Comprehensive Metabolic Prof ilon 12-22-2024 Albumin [Mass/Vol] 3.6 g/dL Normal 3.4-4.8 [facility] Comment on above: Order Comment: 215.2 Performed By: #### L 500.4050, L100.0500, L501.9985 ####[facility] [address] [place], [address] Albumin/Globulin [Mass ratio] 1.7 {ratio} Normal 0.9-2.4 [facility] Comment on above: Order Comment: 215.2 Performed By: #### L 500.4050, L100.0500, L501.9985 ####[facility] [address] [place], [address] ALK PHOS 104 U/L Normal 40-129 [facility] Comment on above: Order Comment: 215.2 Performed By: #### L 500.4050, L100.0500, L501.9985 ####[facility] [address] [place], [address] ALT [Catalytic activity/Vol] 13 U/L Normal <=46 [facility] Comment on above: Order Comment: 215.2 Performed By: #### L 500.4050, L100.0500, L501.9985 ####[facility] [address] [place], [address] AST [Catalytic activity/Vol] 14 U/L Normal <=37 [facility] Comment on above: Order Comment: 215.2 Performed By: #### L 500.4050, L100.0500, L501.9985 ####[facility] [address] [place], [address] Bilirubin [Mass/Vol] 0.43 mg/dL Normal 0.00-1.30 [facility] Comment on above: Order Comment: 215.2 Performed By: #### L 500.4050, L100.0500, L501.9985 ####[facility] [address] [place], [address] BUN/CRE 19.8 RATIO Normal 10-20 [facility] Comment on above: Order Comment: 215.2 Performed By: #### L 500.4050, L100.0500, L501.9985 ####[facility] [address] [place], [address] Calcium [Mass/Vol] 9.5 mg/dL Normal 7.6-11.0 [facility] Comment on above: Order Comment: 215.2 Performed By: #### L 500.4050, L100.0500, L501.9985 ####[facility] [address] [place], [address] Chloride [Moles/Vol] 103 mmol/L Normal 98-108 [facility] Comment on above: Order Comment: 215.2 Performed By: #### L 500.4050, L100.0500, L501.9985 ####[facility] [address] [place], [address] CO2 [Moles/Vol] 26.7 mmol/L Normal 21.0-32.0 [facility] Comment on above: Order Comment: 215.2 Performed By: #### L 500.4050, L100.0500, L501.9985 ####[facility] [address] [place], [address] Creatinine [Mass/Vol] 1.04 mg/dL Normal 0.70-1.20 [facility] Comment on above: Order Comment: 215.2 Performed By: #### L 500.4050, L100.0500, L501.9985 ####[facility] [address] [place], [address] GAP 10 Normal 5-15 [facility] Comment on above: Order Comment: 215.2 Performed By: #### L 500.4050, L100.0500, L501.9985 ####[facility] [address] [place], [address] GFR/1.73 sq M.predicted among non-blacks MDRD (S/P/Bld) [Vol rate/Area] 74 mL/min/{1.73_m2} Normal >60 [facility] Comment on above: Order Comment: 215.2 Result Comment: mL/m in/1.73m2 CKD-EPI Creatinine Equation (2020) Performed By: #### L 500.4050, L100.0500, L501.9985 ####[facility] [address] [place], [address] Globulin (S) [Mass/Vol] 2.2 g/dL Normal 2.2-4.[address] [facility] Comment on above: Order Comment: 215.2 Performed By: #### L 500.4050, L100.0500, L501.9985 ####[facility] [address] [place], [address] Glucose [Mass/Vol] 131 mg/dL High 70-99 [facility] Comment on above: Order Comment: 215.2 Performed By: #### L 500.4050, L100.0500, L501.9985 ####[facility] [address] [place], [address] Potassium [Moles/Vol] 4.2 mmol/L Normal 3.3-5.1 [facility] Comment on above: Order Comment: 215.2 Performed By: #### L 500.4050, L100.0500, L501.9985 ####[facility] [address] [place], [address] Sodium [Moles/Vol] 141 mmol/L Normal 133-145 [facility] Comment on above: Order Comment: 215.2 Performed By: #### L 500.4050, L100.0500, L501.9985 ####[facility] [address] [place], [address] T PROT 5.8 g/dL Low 5.9-8.4 [facility] Comment on above: Order Comment: 215.2 Performed By: #### L 500.4050, L100.0500, L501.9985 ####[facility] [address] [place], [address] Urea nitrogen [Mass/Vol] 21 mg/dL High 4-19 [facility] Comment on above: Order Comment: 215.2 Performed By: #### L 500.4050, L100.0500, L501.9985 ####[facility] [address] [place], [address] Erythrocyte distribution wid th ratioOrdered By: Walter Becker on 12-22-2024 Erythrocyte distribution width (RBC) [Ratio] 13.5 % Normal 11.6-14.6 [facility] Comment on above: Order Comment: 215.2 Performed By: #### L 500.4050, L100.0500, L501.9985 ####[facility] [address] [place], [place], [id number] Erythrocyte distribution wid th standard deviationOrdered By: Walter Becker on 12-22-2024 Erythrocyte distribution width (RBC) [Ratio] 41.9 fl 35.1-43.9 [facility] Glomerular filtration rate ( GFR) estimation/1.73 sq m using serum, plasma, or whole bOrdered By: Walter Becker on 12-22-2024 GFR/1.73 sq M.predicted among non-blacks MDRD (S/P/Bld) [Vol rate/Area] 74 mL/min/{1.73_m2} >60 [facility] Comment on above: mL/min/1.73m2 CKD-EP I Creatinine Equation (2020) Hemoglobin A1con 12-22-2024 HbA1c (Bld) [Mass fraction] 7.0 % High <=5.6 [facility] Comment on above: Order Comment: 215.2 Result Comment: Norm al < 5.7 % Prediabetic 5.7 - 6.4 % Diabetic >or= 6.5 % Please note range changes. Performed By: #### L 500.4050, L100.0500, L501.9985 ####[facility] [address] [place], [place], [id number] Hemoglobin A1c percentageOrd ered By: Walter Bceker on 12-22-2024 HbA1c (Bld) [Mass fraction] 7.0 % High <5.7 [facility] Comment on above: Normal < 5.7 % Predi abetic 5.7 - 6.4 % Diabetic >or= 6.5 % Please note range changes. Hemoglobin measurementOrdere d By: Walter Becker on 12-22-2024 Hemoglobin (Bld) [Mass/Vol] 12.4 g/dL Low 13.0-16. 5 [facility] Comment on above: Order Comment: 215.2 Performed By: #### L 500.4050, L100.0500, L501.9985 ####[facility] [address] [place], [place], [id number] Laboratory - Chemistry and C hemistry - challengeOrdered By: Walter Becker on 12-22-2024 AST [Catalytic activity/Vol] 14 U/L <38 [facility] MCV (mean corpuscular volume ) determinationOrdered By: Walter Becker on 12-22-2024 MCV (RBC) [Entitic vol] 85.6 fL Normal 80-94 [facility] Comment on above: Order Comment: 215.2 Performed By: #### L 500.4050, L100.0500, L501.9985 ####[facility] [address] [place], [place], [address] Mean corpuscular hemoglobin (MCH) determinationOrdered By: Walter Becker on 12-22-2024 MCH (RBC) [Entitic mass] 28.0 pg Normal 27.0-32.0 [facility] Comment on above: Order Comment: 215.2 Performed By: #### L 500.4050, L100.0500, L501.9985 ####[facility] [address] [place], [place], [address] Mean corpuscular hemoglobin concentration (MCHC) determinationOrdered By: Walter Becker on 12-22-2024 MCHC (RBC) [Mass/Vol] 32.7 g/dL Normal 32-36 [facility] Comment on above: Order Comment: 215.2 Performed By: #### L 500.4050, L100.0500, L501.9985 ####[facility] [address] [place], [place], [address] Mean platelet volume determi nationOrdered By: Walter Becker on 12-22-2024 Platelet mean volume (Bld) [Entitic vol] 9.5 fL Normal 6.2-12.0 [facility] Comment on above: Order Comment: 215.2 Performed By: #### L 500.4050, L100.0500, L501.9985 ####[facility] [address] [place], [place], [id number] No Panel InformationOrdered By: Walter Becker on 12-22-2024 14 U/L <38 [facility] Platelet countOrdered By: Horner on 12-22-2024 Platelets (Bld) [#/Vol] 214 10*3/uL Normal 150-450 [facility] Comment on above: Order Comment: 215.2 Performed By: #### L 500.4050, L100.0500, L501.9985 ####[facility] [address] [place], [address] Potassium measurement (mass/ volume)Ordered By: Walter Becker on 12-22-2024 Potassium (Unsp spec) [Mass/Vol] 4.2 mmol/L 3.3-5.1 [facility] Serum creatinine measurement (mass/volume)Ordered By: Walter Becker on 12-22-2024 Creatinine [Mass/Vol] 1.04 mg/dL 0.70-1.20 [facility] Serum globulin measurementOr dered By: Walter Becker on 12-22-2024 Globulin (S) [Mass/Vol] 2.2 g/dL 2.2-4.2 [facility] Serum glucose measurement (m ass/volume)Ordered By: Walter Becker on 12-22-2024 Glucose [Mass/Vol] 131 mg/dL High 70-99 [facility] Serum or plasma alanine davis otransferase (ALT) measurementOrdered By: Walter Becker on 12-22-2024 ALT [Catalytic activity/Vol] 13 U/L <47 [facility] Serum or plasma albumin antoine urement (mass/volume)Ordered By: Walter Becker on 12-22-2024 Albumin [Mass/Vol] 3.6 g/dL 3.4-4.8 [facility] Serum or plasma albumin/glob ulin mass ratioOrdered By: Walter Becker on 12-22-2024 Albumin/Globulin [Mass ratio] 1.7 {ratio} 0.9-2.4 [facility] Serum or plasma alkaline marilin sphatase measurementOrdered By: Walter Becker on 12-22-2024 ALP [Catalytic activity/Vol] 104 U/L 40-129 [facility] Serum or plasma calcium antoine urement (mass/volume)Ordered By: Walter Becker on 12-22-2024 Calcium [Mass/Vol] 9.5 mg/dL 7.6-11.0 [facility] Serum or plasma urea nitroge n measurement (mass/volume)Ordered By: Walter Becker on 12-22-2024 Urea nitrogen [Mass/Vol] 21 mg/dL High 4-19 [facility] Sodium levelOrdered By: Walter Becker on 12-22-2024 Sodium [Moles/Vol] 141 mmol/L 133-145 [facility] Total proteinOrdered By: Crystal Becker on 12-22-2024 Protein [Mass/Vol] 5.8 g/dL Low 5.9-8.4 [facility] White blood cell (WBC) count Ordered By: Walter Becker on 12-22-2024 WBC (Bld) [#/Vol] 9.4 10*3/uL Normal 4.4-11.0 [facility] Comment on above: Order Comment: 215.2 Performed By: #### L 500.4050, L100.0500, L501.9985 ####[facility] [address] [place], [address] Vitamin D,25 Hydroxyon 12-16 Vitamin D 25-OH 31.8 ng/mL Normal 30-100 [facility] Comment on above: Order Comment: 215.2 Result Comment: Laure min D StatusDeficiency: <20 ng/mL (50nmol/L)Insufficiency: 20-30 ng/mL (50-75 nmol/L)Sufficiency: 30-100 ng/mL (75-250 nmol/L)Toxicity: >100 ng/mL (>250 nmol/L) Performed By: #### L 506.1001 ####[facility] [address] [place], [address] Urine Cultureon 11-25-2024 URC Culture exhibits no growth. Normal [facility] Comment on above: Performed By: #### L 400.0001, L100.0500, M100.2200, L500.4050 ####[facility] [address] [place], [address] Anion gap in Serum or Plasma Ordered By: Walter Becker on 11-24-2024 Anion gap [Moles/Vol] 14 mmol/L 5-15 [facility] BUN/creatinine ratioOrdered By: Walter Becker on 11-24-2024 Urea nitrogen/Creatinine [Mass ratio] 19.5 mg/mg 10- [facility] Bilirubin Test strip Ql (U)O rdered By: Walter Becker on 11-24-2024 Bilirubin Ql (U) Negative Negative [facility] Bilirubin, totalOrdered By: Walter Becker on 11-24-2024 Bilirubin [Mass/Vol] 0.34 mg/dL 0.00-1.30 [facility] CBC-Complete Blood Cnt No Di ffon 11-24-2024 Erythrocyte distribution width (RBC) [Ratio] 13.4 % Normal 11.6-14.6 [facility] Comment on above: Order Comment: 215.2 Performed By: #### L 400.0001, L100.0500, M100.2200, L500.4050 ####[facility] [address] [place], [address] Hematocrit (Bld) [Volume fraction] 38.0 % Low 40-54 [facility] Comment on above: Order Comment: 215.2 Performed By: #### L 400.0001, L100.0500, M100.2200, L500.4050 ####[facility] [address] [place], [address] Hemoglobin (Bld) [Mass/Vol] 12.1 g/dL Low 13.0-16. 5 [facility] Comment on above: Order Comment: 215.2 Performed By: #### L 400.0001, L100.0500, M100.2200, L500.4050 ####[facility] [address] [place], [address] MCH (RBC) [Entitic mass] 27.6 pg Normal 27.0-32.0 [facility] Comment on above: Order Comment: 215.2 Performed By: #### L 400.0001, L100.0500, M100.2200, L500.4050 ####[facility] [address] [place], [address] MCHC (RBC) [Mass/Vol] 31.8 g/dL Low 32-36 [facility] Comment on above: Order Comment: 215.2 Performed By: #### L 400.0001, L100.0500, M100.2200, L500.4050 ####[facility] [address] [place], [address] MCV (RBC) [Entitic vol] 86.6 fL Normal 80-94 [facility] Comment on above: Order Comment: 215.2 Performed By: #### L 400.0001, L100.0500, M100.2200, L500.4050 ####[facility] [address] [place], [address] Platelet mean volume (Bld) [Entitic vol] 9.4 fL Normal 6.2-12.0 [facility] Comment on above: Order Comment: 215.2 Performed By: #### L 400.0001, L100.0500, M100.2200, L500.4050 ####[facility] [address] [place], [address] Platelets (Bld) [#/Vol] 200 10*3/uL Normal 150-450 [facility] Comment on above: Order Comment: 215.2 Performed By: #### L 400.0001, L100.0500, M100.2200, L500.4050 ####[facility] [address] [place], [address] RBC (Bld) [#/Vol] 4.39 10*6/uL Low 4.6-6.2 [facility] Comment on above: Order Comment: 215.2 Performed By: #### L 400.0001, L100.0500, M100.2200, L500.4050 ####[facility] [address] [place], [address] RDW SD 41.4 fl Normal 35.1-43.9 [facility] Comment on above: Order Comment: 215.2 Performed By: #### L 400.0001, L100.0500, M100.2200, L500.4050 ####[facility] [address] [place], [address] WBC (Bld) [#/Vol] 8.9 10*3/uL Normal 4.4-11.0 [facility] Comment on above: Order Comment: 215.2 Performed By: #### L 400.0001, L100.0500, M100.2200, L500.4050 ####[facility] [address] [place], [address] Carbon dioxide, total [Moles /volume] in Central venous bloodOrdered By: Walter Becker on 11-24-2024 CO2 [Moles/Vol] 21.7 mmol/L 21.0-32.0 [facility] Chloride assayOrdered By: Horner on 11-24-2024 Chloride [Moles/Vol] 105 mmol/L 98-108 [facility] Comprehensive Metabolic Prof ilon 11-24-2024 Albumin [Mass/Vol] 3.3 g/dL Low 3.4-4.8 [facility] Comment on above: Order Comment: 215.2 Performed By: #### L 400.0001, L100.0500, M100.2200, L500.4050 ####[facility] [address] [place], [address] Albumin/Globulin [Mass ratio] 1.6 {ratio} Normal 0.9-2.4 [facility] Comment on above: Order Comment: 215.2 Performed By: #### L 400.0001, L100.0500, M100.2200, L500.4050 ####[facility] [address] [place], [address] ALK PHOS 101 U/L Normal 40-129 [facility] Comment on above: Order Comment: 215.2 Performed By: #### L 400.0001, L100.0500, M100.2200, L500.4050 ####[facility] [address] [place], [address] ALT [Catalytic activity/Vol] 14 U/L Normal <=46 [facility] Comment on above: Order Comment: 215.2 Performed By: #### L 400.0001, L100.0500, M100.2200, L500.4050 ####[facility] [address] [place], [address] AST [Catalytic activity/Vol] 16 U/L Normal <=37 [facility] Comment on above: Order Comment: 215.2 Performed By: #### L 400.0001, L100.0500, M100.2200, L500.4050 ####[facility] [address] [place], [address] Bilirubin [Mass/Vol] 0.34 mg/dL Normal 0.00-1.30 [facility] Comment on above: Order Comment: 215.2 Performed By: #### L 400.0001, L100.0500, M100.2200, L500.4050 ####[facility] [address] [place], [address] BUN/CRE 19.5 RATIO Normal 10-20 [facility] Comment on above: Order Comment: 215.2 Performed By: #### L 400.0001, L100.0500, M100.2200, L500.4050 ####[facility] [address] [place], [address] Calcium [Mass/Vol] 8.9 mg/dL Normal 7.6-11.0 [facility] Comment on above: Order Comment: 215.2 Performed By: #### L 400.0001, L100.0500, M100.2200, L500.4050 ####[facility] [address] [place], [address] Chloride [Moles/Vol] 105 mmol/L Normal 98-108 [facility] Comment on above: Order Comment: 215.2 Performed By: #### L 400.0001, L100.0500, M100.2200, L500.4050 ####[facility] [address] [place], [address] CO2 [Moles/Vol] 21.7 mmol/L Normal 21.0-32.0 [facility] Comment on above: Order Comment: 215.2 Performed By: #### L 400.0001, L100.0500, M100.2200, L500.4050 ####[facility] [address] [place], [address] Creatinine [Mass/Vol] 1.15 mg/dL Normal 0.70-1.20 [facility] Comment on above: Order Comment: 215.2 Performed By: #### L 400.0001, L100.0500, M100.2200, L500.4050 ####[facility] [address] [place], [address] GAP 14 Normal 5-15 [facility] Comment on above: Order Comment: 215.2 Performed By: #### L 400.0001, L100.0500, M100.2200, L500.4050 ####[facility] [address] [place], [address] GFR/1.73 sq M.predicted among non-blacks MDRD (S/P/Bld) [Vol rate/Area] 66 mL/min/{1.73_m2} Normal >60 [facility] Comment on above: Order Comment: 215.2 Result Comment: mL/m in/1.73m2 CKD-EPI Creatinine Equation (2020) Performed By: #### L 400.0001, L100.0500, M100.2200, L500.4050 ####[facility] [address] [place], [address] Globulin (S) [Mass/Vol] 2.0 g/dL Low 2.2-4.[address] [facility] Comment on above: Order Comment: 215.2 Performed By: #### L 400.0001, L100.0500, M100.2200, L500.4050 ####[facility] [address] [place], [address] Glucose [Mass/Vol] 139 mg/dL High 70-99 [facility] Comment on above: Order Comment: 215.2 Performed By: #### L 400.0001, L100.0500, M100.2200, L500.4050 ####[facility] [address] [place], [address] Potassium [Moles/Vol] 4.2 mmol/L Normal 3.3-5.1 [facility] Comment on above: Order Comment: 215.2 Performed By: #### L 400.0001, L100.0500, M100.2200, L500.4050 ####[facility] [address] [place], [address] Sodium [Moles/Vol] 141 mmol/L Normal 133-145 [facility] Comment on above: Order Comment: 215.2 Performed By: #### L 400.0001, L100.0500, M100.2200, L500.4050 ####[facility] [address] [place], [address] T PROT 5.3 g/dL Low 5.9-8.4 [facility] Comment on above: Order Comment: 215.2 Performed By: #### L 400.0001, L100.0500, M100.2200, L500.4050 ####[facility] [address] [place], [address] Urea nitrogen [Mass/Vol] 22 mg/dL High 4-19 [facility] Comment on above: Order Comment: 215.2 Performed By: #### L 400.0001, L100.0500, M100.2200, L500.4050 ####[facility] [address] [place], [address] Erythrocyte distribution wid th ratioOrdered By: Walter Becker on 11-24-2024 Erythrocyte distribution width (RBC) [Ratio] 13.4 % 11.6-14.6 [facility] Erythrocyte distribution wid th standard deviationOrdered By: Walter Becker on 11-24-2024 Erythrocyte distribution width (RBC) [Ratio] 41.4 fl 35.1-43.9 [facility] Glomerular filtration rate ( GFR) estimation/1.73 sq m using serum, plasma, or whole bOrdered By: Walter Becker on 11-24-2024 GFR/1.73 sq M.predicted among non-blacks MDRD (S/P/Bld) [Vol rate/Area] 66 mL/min/{1.73_m2} >60 [facility] Comment on above: mL/min/1.73m2 CKD-EP I Creatinine Equation (2020) Hematocrit Auto (Bld) [Volum e fraction]Ordered By: Walter Becker on 11-24-2024 Hematocrit (Bld) [Volume fraction] 38.0 % Low 40-54 [facility] Hemoglobin measurementOrdere d By: Walter Becker on 11-24-2024 Hemoglobin (Bld) [Mass/Vol] 12.1 g/dL Low 13.0-16. 5 [facility] Ketones Test strip Ql (U)Ord ered By: Walter Becker on 11-24-2024 Ketones Ql (U) Negative Negative [facility] Laboratory - Chemistry and C hemistry - challengeOrdered By: Walter Becker on 11-24-2024 AST [Catalytic activity/Vol] 16 U/L <38 [facility] MCV (mean corpuscular volume ) determinationOrdered By: Walter Becker on 11-24-2024 MCV (RBC) [Entitic vol] 86.6 fL 80-94 [facility] Mean corpuscular hemoglobin (MCH) determinationOrdered By: Walter Becker on 11-24-2024 MCH (RBC) [Entitic mass] 27.6 pg 27.0-32.0 [facility] Mean corpuscular hemoglobin concentration (MCHC) determinationOrdered By: Walter Becker on 11-24-2024 MCHC (RBC) [Mass/Vol] 31.8 g/dL Low 32-36 [facility] Mean platelet volume determi nationOrdered By: Walter Becker on 11-24-2024 Platelet mean volume (Bld) [Entitic vol] 9.4 fL 6.2-12.0 [facility] Microscopic analysis of urin e for red blood cells (RBC)Ordered By: Walter Becker on 11-24-2024 Microscopic analysis of urine for red blood cells (RBC) 0 SEEN /hpf 0-5 [facility] Mucus LM Ql (Urine sed)Order ed By: Walter Becker on 11-24-2024 Mucus Ql (Urine sed) 0 SEEN /hpf [facility] Nitrite Test strip Ql (U)Ord ered By: Walter Becker on 11-24-2024 Nitrite Ql (U) Negative Negative [facility] No Panel InformationOrdered By: Walter Becker on 11-24-2024 16 U/L <38 [facility] Platelet countOrdered By: Horner on 11-24-2024 Platelets (Bld) [#/Vol] 200 10*3/uL 150-450 [facility] Potassium measurement (mass/ volume)Ordered By: Walter Becker on 11-24-2024 Potassium (Unsp spec) [Mass/Vol] 4.2 mmol/L 3.3-5.1 [facility] Protein Test strip Ql (U)Ord ered By: Walter Becker on 11-24-2024 Protein Ql (U) Negative Negative [facility] RBC Auto (Bld) [#/Vol]Ordere d By: Walter Becker on 11-24-2024 RBC (Bld) [#/Vol] 4.39 10*6/uL Low 4.6-6.2 [facility] Serum creatinine measurement (mass/volume)Ordered By: Walter Becker on 11-24-2024 Creatinine [Mass/Vol] 1.15 mg/dL 0.70-1.20 [facility] Serum globulin measurementOr dered By: Walter Becker on 11-24-2024 Globulin (S) [Mass/Vol] 2.0 g/dL Low 2.2-4.2 [facility] Serum glucose measurement (m ass/volume)Ordered By: Walter Becker on 11-24-2024 Glucose [Mass/Vol] 139 mg/dL High 70-99 [facility] Serum or plasma alanine davis otransferase (ALT) measurementOrdered By: Walter Becker on 11-24-2024 ALT [Catalytic activity/Vol] 14 U/L <47 [facility] Serum or plasma albumin antoine urement (mass/volume)Ordered By: Walter Becker on 11-24-2024 Albumin [Mass/Vol] 3.3 g/dL Low 3.4-4.8 [facility] Serum or plasma albumin/glob ulin mass ratioOrdered By: Walter Becker on 11-24-2024 Albumin/Globulin [Mass ratio] 1.6 {ratio} 0.9-2.4 [facility] Serum or plasma alkaline marilin sphatase measurementOrdered By: Walter Becker on 11-24-2024 ALP [Catalytic activity/Vol] 101 U/L 40-129 [facility] Serum or plasma calcium antoine urement (mass/volume)Ordered By: Walter Becker on 11-24-2024 Calcium [Mass/Vol] 8.9 mg/dL 7.6-11.0 [facility] Serum or plasma urea nitroge n measurement (mass/volume)Ordered By: Walter Becker on 11-24-2024 Urea nitrogen [Mass/Vol] 22 mg/dL High 4-19 [facility] Sodium levelOrdered By: Walter Becker on 11-24-2024 Sodium [Moles/Vol] 141 mmol/L 133-145 [facility] Squamous epithelial cells de tection in urine sediment by light microscopyOrdered By: Walter Becker on 11-24-2024 Epithelial cells.squamous LM Ql (Urine sed) 0 SEEN /hpf 0-5 [facility] Total proteinOrdered By: Crystal Becker on 11-24-2024 Protein [Mass/Vol] 5.3 g/dL Low 5.9-8.4 [facility] Urinalysis, Completeon 11-24 WBC 0-5 SEEN Normal 0-5 [facility] Comment on above: Order Comment: LEILA TER SPECIMEN Performed By: #### L 400.0001, L100.0500, M100.2200, L500.4050 ####[facility] [address] [place], [address] BACTERIA 0 SEEN Normal None Seen [facility] Comment on above: Order Comment: LEILA TER SPECIMEN Performed By: #### L 400.0001, L100.0500, M100.2200, L500.4050 ####[facility] [address] [place], [address] EPI,SQUAMOUS 0 SEEN Normal 0-5 [facility] Comment on above: Order Comment: LEILA TER SPECIMEN Performed By: #### L 400.0001, L100.0500, M100.2200, L500.4050 ####[facility] [address] [place], [address] Mucus Ql (Urine sed) 0 SEEN Normal [facility] Comment on above: Order Comment: LEILA TER SPECIMEN Performed By: #### L 400.0001, L100.0500, M100.2200, L500.4050 ####[facility] [address] [place], [address] RBC 0 SEEN Normal 0-5 [facility] Comment on above: Order Comment: LEILA TER SPECIMEN Performed By: #### L 400.0001, L100.0500, M100.2200, L500.4050 ####[facility] [address] [place], [address] Urine clarityOrdered By: Crystal Becker on 11-24-2024 Clarity (U) Clear Clear [facility] Urine color determinationOrd ered By: Walter Becker on 11-24-2024 Color (U) Yellow Yellow [facility] Urine cultureOrdered By: Crystal Becker on 11-24-2024 Bacteria identified Cx Nom (U) Culture exhibits no growth. [facility] Urine glucose detectionOrder ed By: Walter Becker on 11-24-2024 Glucose Ql (U) Normal mg/dl Normal [facility] Urine leukocyte esterase det ection by dipstickOrdered By: Walter Becker on 11-24-2024 Leukocyte esterase Test strip Ql (U) Negative Negative [facility] Urine pHOrdered By: Walter floyd on 11-24-2024 pH (U) 6.0 [pH] 5.0 - 8.0 [facility] Urine sediment bacteria coun t by microscopy (number/high power field)Ordered By: Walter Becker on 11-24-2024 Bacteria LM.HPF (Urine sed) [#/Area] 0 /[HPF] None Seen [facility] Urine specific gravity measu rementOrdered By: Walter Becker on 11-24-2024 Specific gravity (U) [Rel density] 1.010 1.002-1.03 0 [facility] Urine urobilinogen measureme ntOrdered By: Walter Becker on 11-24-2024 Urobilinogen Ql (U) Normal mg/dl Normal [facility] White blood cell (WBC) count Ordered By: Walter Becker on 11-24-2024 WBC (Bld) [#/Vol] 8.9 10*3/uL 4.4-11.0 [facility] White blood cell countOrdere d By: Walter Becker on 11-24-2024 White blood cell count 0-5 SEEN /hpf 0-5 [facility] CNPNon 11-06-2024 CNPN Telephone (4CQ) RICHARD ROY ([id number]) 1945 M Date Time Provider Department 11/06/24 ABDULAZIZ CALDERA 4CQ During your visit today, we recorded the following information about you: Ann Raymond 11/06/2024 10:55 AM Signed Spoke with spouse as patient is over due for visit with PCP , stated patient is at [facility] in [place]. We did not remove PCP. Abdulaziz Caldera [...] time a week. - blood sugar diagnostic (Space [employer]pe ULTRA TEST) test strip Test blood sugar(s) [...] Status:Closed by AMADA COHN on 11/06/24 Normal [facility] Cardiology Visit Reporton Cardiology Visit Report Normal [facility] Calculated very low density lipoprotein (VLDL) cholesterol measurementOrdered By: Walter Becker on 10-05-2024 VLDL Cholesterol 41 mg/dL High 5-40 [facility] LDL calc ser/plasOrdered By: Walter Becker on 10-05-2024 LDL Cholesterol, Calculated 31 mg/dL [facility] Comment on above: Uxtnedxkcj=834-941 m g/dL & Higher Lfye=303 mg/dL or greater Lipid Profileon 10-05-2024 CHOL:HDL 3.37 Normal [facility] Comment on above: Order Comment: 215.2 Performed By: #### L 016.1228 ####[facility] [address] [place], [place], [address] Cholesterol [Mass/Vol] 103 mg/dL Normal <=200 [facility] Comment on above: Order Comment: 215.2 Result Comment: Chol esterol level, Desirable <200 mg/dLBorderline high cholesterol 200-239 mg/dLHigh cholesterol >=240 mg/dLRecommendations of the NCEP Adult Treatment Panel for thefollowing risk-cutoff thresholds for the [place] Americanpopulation. Performed By: #### L 500.4100 ####[facility] [address] [place], [address] Cholesterol in HDL [Mass/Vol] 31 mg/dL Low [facility] Comment on above: Order Comment: 215.2 Result Comment: Stephanie onal Cholesterol Education Program (NCEP) guidelines:<40 mg/dL: Low HDL-cholesterol (major risk factor for CHD)>= 60 mg/dL: High HDL-cholesterol (negative risk factor forCHD)HDL-cholesterol is affected by a number of factors, e.g.smoking, exercise, hormones, sex and age. Performed By: #### L 500.4100 ####[facility] [address] [place], [address] Cholesterol in LDL [Mass/Vol] 31 mg/dL Normal [facility] Comment on above: Order Comment: 215.2 Result Comment: Bord wyzpwn=913-368 mg/dL Higher Ksoq=422 mg/dL or greater Performed By: #### L 500.4100 ####[facility] [address] [place], [address] Cholesterol in VLDL [Mass/Vol] 41 mg/dL High 5-40 [facility] Comment on above: Order Comment: 215.2 Performed By: #### L 500.4100 ####[facility] [address] [place], [address] Triglyceride [Mass/Vol] 207 mg/dL High [facility] Comment on above: Order Comment: 215.2 Result Comment: The drugs N-Acetylcysteine and Metamizole may falselydepress this assay.Normal range: <150 mg/dLBorderline High: 150-199 mg/dLHigh: 200-499 mg/dLVery High: >500 mg/dL Performed By: #### L 500.4100 ####[facility] [address] [place], [address] Screening total cholesterol/ high density lipoprotein (HDL) cholesterol ratioOrdered By: Walter Becekr on 10-05-2024 Cholesterol.total/Cholester ol in HDL [Mass ratio] 3.37 {ratio} [facility] Serum or plasma cholesterol in HDL measurement (mass/volume)Ordered By: Walter Becker on 10-05-2024 Cholesterol in HDL [Mass/Vol] 31 mg/dL Low >40 [facility] Comment on above: National Cholesterol Education Program (NCEP) guidelines:<40 mg/dL: Low HDL-cholesterol (major risk factor for CHD)>= 60 mg/dL: High HDL-cholesterol (negative risk factor for CHD)HDL-cholesterol is affected by a number of factors, e.g. smoking, exercise, hormones, sex and age. Serum or plasma cholesterol measurement (mass/volume)Ordered By: Walter Becker on 10-05-2024 Cholesterol [Mass/Vol] 103 mg/dL <201 [facility] Comment on above: Cholesterol level, D esirable <200 mg/dLBorderline high cholesterol 200-239 mg/dLHigh cholesterol >=240 mg/dLRecommendations of the NCEP Adult Treatment Panel for the following risk-cutoff thresholds for the [place] population. Triglycerides measurementOrd ered By: Walter Becker on 10-05-2024 Triglyceride [Mass/Vol] 207 mg/dL High <199 [facility] Comment on above: The drugs N-Acetylcy steine and Metamizole may falsely depress this assay. Normal range: <150 mg/dLBorderline High: 150-199 mg/dLHigh: 200-499 mg/dLVery High: >500 mg/dL Anion gap in Serum or Plasma Ordered By: Walter Becker on 09-29-2024 Anion gap [Moles/Vol] 11 mmol/L 5-15 [facility] BUN/creatinine ratioOrdered By: Walter Becker on 09-29-2024 Urea nitrogen/Creatinine [Mass ratio] 20.5 mg/mg High 10-20 [facility] Bilirubin, totalOrdered By: Walter Becker on 09-29-2024 Bilirubin [Mass/Vol] 0.31 mg/dL 0.00-1.30 [facility] CBC-Complete Blood Cnt No Di ffon 09-29-2024 Erythrocyte distribution width (RBC) [Ratio] 13.7 % Normal 11.6-14.6 [facility] Comment on above: Order Comment: 215.2 Performed By: #### L 500.4050, L501.9985, L100.0500 ####[facility] [address] [place], [address] Hematocrit (Bld) [Volume fraction] 37.0 % Low 40-54 [facility] Comment on above: Order Comment: 215.2 Performed By: #### L 500.4050, L501.9985, L100.0500 ####[facility] [address] [place], [address] Hemoglobin (Bld) [Mass/Vol] 11.8 g/dL Low 13.0-16. 5 [facility] Comment on above: Order Comment: 215.2 Performed By: #### L 500.4050, L501.9985, L100.0500 ####[facility] [address] [place], [address] MCH (RBC) [Entitic mass] 27.9 pg Normal 27.0-32.0 [facility] Comment on above: Order Comment: 215.2 Performed By: #### L 500.4050, L501.9985, L100.0500 ####[facility] [address] [place], [address] MCHC (RBC) [Mass/Vol] 31.9 g/dL Low 32-36 [facility] Comment on above: Order Comment: 215.2 Performed By: #### L 500.4050, L501.9985, L100.0500 ####[facility] [address] [place], [address] MCV (RBC) [Entitic vol] 87.5 fL Normal 80-94 [facility] Comment on above: Order Comment: 215.2 Performed By: #### L 500.4050, L501.9985, L100.0500 ####[facility] [address] [place], [address] Platelet mean volume (Bld) [Entitic vol] 9.6 fL Normal 6.2-12.0 [facility] Comment on above: Order Comment: 215.2 Performed By: #### L 500.4050, L501.9985, L100.0500 ####[facility] [address] [place], [address] Platelets (Bld) [#/Vol] 226 10*3/uL Normal 150-450 [facility] Comment on above: Order Comment: 215.2 Performed By: #### L 500.4050, L501.9985, L100.0500 ####[facility] [address] [place], [address] RBC (Bld) [#/Vol] 4.23 10*6/uL Low 4.6-6.2 [facility] Comment on above: Order Comment: 215.2 Performed By: #### L 500.4050, L501.9985, L100.0500 ####[facility] [address] [place], [address] RDW SD 43.7 fl Normal 35.1-43.9 [facility] Comment on above: Order Comment: 215.2 Performed By: #### L 500.4050, L501.9985, L100.0500 ####[facility] [address] [place], [address] WBC (Bld) [#/Vol] 8.9 10*3/uL Normal 4.4-11.0 [facility] Comment on above: Order Comment: 215.2 Performed By: #### L 500.4050, L501.9985, L100.0500 ####[facility] [address] [place], [address] Carbon dioxide, total [Moles /volume] in Central venous bloodOrdered By: Walter Becker on 09-29-2024 CO2 [Moles/Vol] 25.6 mmol/L 21.0-32.0 [facility] Chloride assayOrdered By: Horner on 09-29-2024 Chloride [Moles/Vol] 104 mmol/L 98-108 [facility] Comprehensive Metabolic Prof ilon 09-29-2024 Albumin [Mass/Vol] 3.6 g/dL Normal 3.4-4.8 [facility] Comment on above: Order Comment: 215.2 Performed By: #### L 500.4050, L501.9985, L100.0500 ####[facility] [address] [place], [address] Albumin/Globulin [Mass ratio] 1.8 {ratio} Normal 0.9-2.4 [facility] Comment on above: Order Comment: 215.2 Performed By: #### L 500.4050, L501.9985, L100.0500 ####[facility] [address] [place], [address] ALK PHOS 101 U/L Normal 40-129 [facility] Comment on above: Order Comment: 215.2 Performed By: #### L 500.4050, L501.9985, L100.0500 ####[facility] [address] [place], [address] ALT [Catalytic activity/Vol] 19 U/L Normal <=46 [facility] Comment on above: Order Comment: 215.2 Performed By: #### L 500.4050, L501.9985, L100.0500 ####[facility] [address] [place], [address] AST [Catalytic activity/Vol] 15 U/L Normal <=37 [facility] Comment on above: Order Comment: 215.2 Performed By: #### L 500.4050, L501.9985, L100.0500 ####[facility] [address] [place], [address] Bilirubin [Mass/Vol] 0.31 mg/dL Normal 0.00-1.30 [facility] Comment on above: Order Comment: 215.2 Performed By: #### L 500.4050, L501.9985, L100.0500 ####[facility] [address] [place], [address] BUN/CRE 20.5 RATIO High 10-20 [facility] Comment on above: Order Comment: 215.2 Performed By: #### L 500.4050, L501.9985, L100.0500 ####[facility] [address] [place], [address] Calcium [Mass/Vol] 9.2 mg/dL Normal 7.6-11.0 [facility] Comment on above: Order Comment: 215.2 Performed By: #### L 500.4050, L501.9985, L100.0500 ####[facility] [address] [place], [address] Chloride [Moles/Vol] 104 mmol/L Normal 98-108 [facility] Comment on above: Order Comment: 215.2 Performed By: #### L 500.4050, L501.9985, L100.0500 ####[facility] [address] [place], [address] CO2 [Moles/Vol] 25.6 mmol/L Normal 21.0-32.0 [facility] Comment on above: Order Comment: 215.2 Performed By: #### L 500.4050, L501.9985, L100.0500 ####[facility] [address] [place], [address] Creatinine [Mass/Vol] 1.10 mg/dL Normal 0.70-1.20 [facility] Comment on above: Order Comment: 215.2 Performed By: #### L 500.4050, L501.9985, L100.0500 ####[facility] [address] [place], [address] GAP 11 Normal 5-15 [facility] Comment on above: Order Comment: 215.2 Performed By: #### L 500.4050, L501.9985, L100.0500 ####[facility] [address] [place], [address] GFR/1.73 sq M.predicted among non-blacks MDRD (S/P/Bld) [Vol rate/Area] 70 mL/min/{1.73_m2} Normal >60 [facility] Comment on above: Order Comment: 215.2 Result Comment: mL/m in/1.73m2 CKD-EPI Creatinine Equation (2020) Performed By: #### L 500.4050, L501.9985, L100.0500 ####[facility] [address] [place], [address] Globulin (S) [Mass/Vol] 2.0 g/dL Low 2.2-4.[address] [facility] Comment on above: Order Comment: 215.2 Performed By: #### L 500.4050, L501.9985, L100.0500 ####[facility] [address] [place], [address] Glucose [Mass/Vol] 155 mg/dL High 70-99 [facility] Comment on above: Order Comment: 215.2 Performed By: #### L 500.4050, L501.9985, L100.0500 ####[facility] [address] [place], [address] Potassium [Moles/Vol] 4.2 mmol/L Normal 3.3-5.1 [facility] Comment on above: Order Comment: 215.2 Performed By: #### L 500.4050, L501.9985, L100.0500 ####[facility] [address] [place], [address] Sodium [Moles/Vol] 141 mmol/L Normal 133-145 [facility] Comment on above: Order Comment: 215.2 Performed By: #### L 500.4050, L501.9985, L100.0500 ####[facility] [address] [place], [address] T PROT 5.6 g/dL Low 5.9-8.4 [facility] Comment on above: Order Comment: 215.2 Performed By: #### L 500.4050, L501.9985, L100.0500 ####[facility] [address] [place], [address] Urea nitrogen [Mass/Vol] 23 mg/dL High 4-19 [facility] Comment on above: Order Comment: 215.2 Performed By: #### L 500.4050, L501.9985, L100.0500 ####[facility] [address] [place], [address] Erythrocyte distribution wid th (RBC) [Ratio]Ordered By: Walter Becker on 09-29-2024 Erythrocyte distribution width (RBC) [Entitic vol] 43.7 fL 35.1-43.9 [facility] Erythrocyte distribution wid th ratioOrdered By: Walter Becker on 09-29-2024 Erythrocyte distribution width (RBC) [Ratio] 13.7 % 11.6-14.6 [facility] GFR/1.73 sq M.predicted kimberly g non-blacks MDRD (S/P/Bld) [Vol rate/Area]Ordered By: Walter Becker on 09-29-2024 Estimated GFR (MDRD) Non-Af Amer 70 >60 [facility] Comment on above: mL/min/1.73m2 CKD-EP I Creatinine Equation (2020) Hematocrit Auto (Bld) [Volum e fraction]Ordered By: Walter Becker on 09-29-2024 Hematocrit (Bld) [Volume fraction] 37.0 % Low 40-54 [facility] Hemoglobin A1con 09-29-2024 HbA1c (Bld) [Mass fraction] 6.6 % Normal <=5.6 [facility] Comment on above: Order Comment: 215.2 Performed By: #### L 500.4050, L501.9985, L100.0500 ####[facility] [address] [place], [place], [address] Hemoglobin A1c percentageOrd ered By: Walter Becker on 09-29-2024 HbA1c (Bld) [Mass fraction] 6.6 % >5.7 [facility] Hemoglobin measurementOrdere d By: Walter Becker on 09-29-2024 Hemoglobin (Bld) [Mass/Vol] 11.8 g/dL Low 13.0-16. 5 [facility] Laboratory - Chemistry and C hemistry - challengeOrdered By: Walter Becker on 09-29-2024 AST [Catalytic activity/Vol] 15 U/L <38 [facility] MCV (mean corpuscular volume ) determinationOrdered By: Walter Becker on 09-29-2024 MCV (RBC) [Entitic vol] 87.5 fL 80-94 [facility] Mean corpuscular hemoglobin (MCH) determinationOrdered By: Walter Becker on 09-29-2024 MCH (RBC) [Entitic mass] 27.9 pg 27.0-32.0 [facility] Mean corpuscular hemoglobin concentration (MCHC) determinationOrdered By: Walter Becker on 09-29-2024 MCHC (RBC) [Mass/Vol] 31.9 g/dL Low 32-36 [facility] Mean platelet volume determi nationOrdered By: Walter Becker on 09-29-2024 Platelet mean volume (Bld) [Entitic vol] 9.6 fL 6.2-12.0 [facility] Platelet countOrdered By: Horner on 09-29-2024 Platelets (Bld) [#/Vol] 226 10*3/uL 150-450 [facility] Potassium (Unsp spec) [Mass/ Vol]Ordered By: Walter Becker on 09-29-2024 Potassium [Moles/Vol] 4.2 mmol/L 3.3-5.1 [facility] RBC Auto (Bld) [#/Vol]Ordere d By: Walter Becker on 09-29-2024 RBC (Bld) [#/Vol] 4.23 10*6/uL Low 4.6-6.2 [facility] Serum creatinine measurement (mass/volume)Ordered By: Walter Becker on 09-29-2024 Creatinine [Mass/Vol] 1.10 mg/dL 0.70-1.20 [facility] Serum globulin measurementOr dered By: Walter Becker on 09-29-2024 Globulin (S) [Mass/Vol] 2.0 g/dL Low 2.2-4.2 [facility] Serum glucose measurement (m ass/volume)Ordered By: Walter Becker on 09-29-2024 Glucose [Mass/Vol] 155 mg/dL High 70-99 [facility] Serum or plasma alanine davis otransferase (ALT) measurementOrdered By: Walter Becker on 09-29-2024 ALT [Catalytic activity/Vol] 19 U/L <47 [facility] Serum or plasma albumin antoine urement (mass/volume)Ordered By: Walter Becker on 09-29-2024 Albumin [Mass/Vol] 3.6 g/dL 3.4-4.8 [facility] Serum or plasma albumin/glob ulin mass ratioOrdered By: Walter Becker on 09-29-2024 Albumin/Globulin [Mass ratio] 1.8 {ratio} 0.9-2.4 [facility] Serum or plasma alkaline marilin sphatase measurementOrdered By: Walter Becker on 09-29-2024 ALP [Catalytic activity/Vol] 101 U/L 40-129 [facility] Serum or plasma calcium antoine urement (mass/volume)Ordered By: Walter Becker on 09-29-2024 Calcium [Mass/Vol] 9.2 mg/dL 7.6-11.0 [facility] Serum or plasma urea nitroge n measurement (mass/volume)Ordered By: Walter Becker on 09-29-2024 Urea nitrogen [Mass/Vol] 23 mg/dL High 4-19 [facility] Sodium levelOrdered By: Walter Becker on 09-29-2024 Sodium [Moles/Vol] 141 mmol/L 133-145 [facility] Total proteinOrdered By: Crystal Becker on 09-29-2024 Protein [Mass/Vol] 5.6 g/dL Low 5.9-8.4 [facility] White blood cell (WBC) count Ordered By: Walter Becker on 09-29-2024 WBC (Bld) [#/Vol] 8.9 10*3/uL 4.4-11.0 [facility] Urine Cultureon 08-05-2024 URC Culture exhibits no growth. Normal [facility] Comment on above: Performed By: #### L 400.0001, M100.2200 ####[facility] [address] [place], [place], [address] Albumin to globulin ratioOrd ered By: Walter Becker on 08-04-2024 Albumin/Globulin [Mass ratio] 1.0 {ratio} 0.9-2.4 [facility] Bilirubin Test strip Ql (U)O rdered By: Walter Becker on 08-04-2024 Bilirubin Ql (U) Negative Negative [facility] Bilirubin, totalOrdered By: Walter Becker on 08-04-2024 Bilirubin [Mass/Vol] 0.50 mg/dL 0.20-1.00 [facility] Comment on above: For patients on eltr ombopag therapy, use of Dimension [place] TBIL is not recommended. Blood urea nitrogen (BUN)/cr eatinine ratioOrdered By: Walter Becker on 08-04-2024 Urea nitrogen/Creatinine [Mass ratio] 21.1 mg/mg High 10-20 [facility] CBC-Complete Blood Cnt No Di ffon 08-04-2024 Erythrocyte distribution width (RBC) [Ratio] 13.0 % Normal 11.6-14.6 [facility] Comment on above: Order Comment: 215.2 Performed By: #### L 500.4050, L100.0500 ####[facility] [address] [place], [address] Hematocrit (Bld) [Volume fraction] 41.3 % Normal 40-54 [facility] Comment on above: Order Comment: 215.2 Performed By: #### L 500.4050, L100.0500 ####[facility] [address] [place], [address] Hemoglobin (Bld) [Mass/Vol] 12.9 g/dL Low 13.0-16. 5 [facility] Comment on above: Order Comment: 215.2 Performed By: #### L 500.4050, L100.0500 ####[facility] [address] [place], [address] MCH (RBC) [Entitic mass] 27.3 pg Normal 27.0-32.0 [facility] Comment on above: Order Comment: 215.2 Performed By: #### L 500.4050, L100.0500 ####[facility] [address] [place], [address] MCHC (RBC) [Mass/Vol] 31.2 g/dL Low 32-36 [facility] Comment on above: Order Comment: 215.2 Performed By: #### L 500.4050, L100.0500 ####[facility] [address] [place], [address] MCV (RBC) [Entitic vol] 87.3 fL Normal 80-94 [facility] Comment on above: Order Comment: 215.2 Performed By: #### L 500.4050, L100.0500 ####[facility] [address], [address] Platelet mean volume (Bld) [Entitic vol] 9.3 fL Normal 6.2-12.0 [facility] Comment on above: Order Comment: 215.2 Performed By: #### L 500.4050, L100.0500 ####[facility] [address] [place], [address] Platelets (Bld) [#/Vol] 295 10*3/uL Normal 150-450 [facility] Comment on above: Order Comment: 215.2 Performed By: #### L 500.4050, L100.0500 ####[facility] [address] [place], [address] RBC (Bld) [#/Vol] 4.73 10*6/uL Normal 4.6-6.2 [facility] Comment on above: Order Comment: 215.2 Performed By: #### L 500.4050, L100.0500 ####[facility] [address] [place], [address] RDW SD 41.8 fl Normal 35.1-43.9 [facility] Comment on above: Order Comment: 215.2 Performed By: #### L 500.4050, L100.0500 ####[facility] [address] [place], [address] WBC (Bld) [#/Vol] 9.3 10*3/uL Normal 4.4-11.0 [facility] Comment on above: Order Comment: 215.2 Performed By: #### L 500.4050, L100.0500 ####[facility] [address] [place], [address] Carbon dioxide measurementOr dered By: Walter Becker on 08-04-2024 CO2 [Moles/Vol] 29.0 mmol/L 21.0-32.0 [facility] Chloride measurementOrdered By: Walter Becker on 01-21-2025 Chloride [Moles/Vol] 104 mmol/L 98-107 [facility] Comprehensive Metabolic Prof ilon 08-04-2024 Albumin [Mass/Vol] 3.5 g/dL Normal 3.2-5.0 [facility] Comment on above: Order Comment: 215.2 Performed By: #### L 500.4050, L100.0500 ####[facility] [address] [place], [address] Albumin/Globulin [Mass ratio] 1.0 {ratio} Normal 0.9-2.4 [facility] Comment on above: Order Comment: 215.2 Performed By: #### L 500.4050, L100.0500 ####[facility] [address] [place], [address] ALK P 125 U/L High 45-117 [facility] Comment on above: Order Comment: 215.2 Performed By: #### L 500.4050, L100.0500 ####[facility] [address] [place], [address] ALT [Catalytic activity/Vol] 19 U/L Normal 16-61 [facility] Comment on above: Order Comment: 215.2 Performed By: #### L 500.4050, L100.0500 ####[facility] [address] [place], [address] AST [Catalytic activity/Vol] 12 U/L Low 15-37 [facility] Comment on above: Order Comment: 215.2 Performed By: #### L 500.4050, L100.0500 ####[facility] [address] [place], [address] Bilirubin [Mass/Vol] 0.50 mg/dL Normal 0.20-1.00 [facility] Comment on above: Order Comment: 215.2 Result Comment: For patients on eltrombopag therapy, use of Dimension [place] TBIL is not recommended. Performed By: #### L 500.4050, L100.0500 ####[facility] [facility] [address] [place], [address] BUN/CRE 21.1 RATIO High 10-20 [facility] Comment on above: Order Comment: 215.2 Performed By: #### L 500.4050, L100.0500 ####[facility] [address] [place], [address] CA,Total 9.7 mg/dL Normal 8.5-10.1 [facility] Comment on above: Order Comment: 215.2 Performed By: #### L 500.4050, L100.0500 ####[facility] [address] [place], [address] Chloride [Moles/Vol] 104 mmol/L Normal 98-107 [facility] Comment on above: Order Comment: 215.2 Performed By: #### L 500.4050, L100.0500 ####[facility] [address] [place], [address] CO2 [Moles/Vol] 29.0 mmol/L Normal 21.0-32.0 [facility] Comment on above: Order Comment: 215.2 Performed By: #### L 500.4050, L100.0500 ####[facility] [address] [place], [address] Creatinine [Mass/Vol] 1.28 mg/dL Normal 0.70-1.30 [facility] Comment on above: Order Comment: 215.2 Result Comment: The validity of the calculated GFR GFRAA in patients over70 years has not been determined. Clinical correlation isessential. Performed By: #### L 500.4050, L100.0500 ####[facility] [address] [place], [address] EST GFR - AA 70 mL/min Normal >60 [facility] Comment on above: Order Comment: 215.2 Result Comment: Afri can [place] GFR Calc Performed By: #### L 500.4050, L100.0500 ####[facility] [address] [place], [address] GAP 7 Normal 5-15 [facility] Comment on above: Order Comment: 215.2 Performed By: #### L 500.4050, L100.0500 ####[facility] [address] [place], [address] GFR/1.73 sq M.predicted among non-blacks MDRD (S/P/Bld) [Vol rate/Area] 58 mL/min/{1.73_m2} Low >60 [facility] Comment on above: Order Comment: 215.2 Result Comment: Non- GFR Calc Performed By: #### L 500.4050, L100.0500 ####[facility] [address] [place], [address] Globulin (S) [Mass/Vol] 3.5 g/dL Normal 2.2-4.[address] [facility] Comment on above: Order Comment: 215.2 Performed By: #### L 500.4050, L100.0500 ####[facility] [address] [place], [address] Glucose [Mass/Vol] 128 mg/dL High 74-106 [facility] Comment on above: Order Comment: 215.2 Result Comment: Fast ing Glucose result greater than or equal to 126 mg/dLsuggests DIABETES MELLITUS per A.D.A. criteria. Performed By: #### L 500.4050, L100.0500 ####[facility] [address] [place], [address] Potassium [Moles/Vol] 3.9 mmol/L Normal 3.5-5.1 [facility] Comment on above: Order Comment: 215.2 Performed By: #### L 500.4050, L100.0500 ####[facility] [address] [place], [address] Sodium [Moles/Vol] 140 mmol/L Normal 136-145 [facility] Comment on above: Order Comment: 215.2 Performed By: #### L 500.4050, L100.0500 ####[facility] [address] [place], [address] T PROT 7.0 g/dL Normal 6.4-8.2 [facility] Comment on above: Order Comment: 215.2 Performed By: #### L 500.4050, L100.0500 ####[facility] [address] [place], [address] Urea nitrogen [Mass/Vol] 27 mg/dL High 7-18 [facility] Comment on above: Order Comment: 215.2 Performed By: #### L 500.4050, L100.0500 ####[facility] [address] [place], [address] Epithelial cells.squamous LM Ql (Urine sed)Ordered By: Walter Becker on 08-04-2024 Epithelial cells.squamous LM.HPF (Urine sed) [#/Area] 0 /[HPF] 0-5 [facility] Erythrocyte distribution wid th (RBC) [Ratio]Ordered By: Walter Becker on 08-04-2024 Erythrocyte distribution width (RBC) [Entitic vol] 41.8 fL 35.1-43.9 [facility] Erythrocyte distribution wid th ratioOrdered By: Walter Becker on 08-04-2024 Erythrocyte distribution width (RBC) [Ratio] 13.0 % 11.6-14.6 [facility] Estimated glomerular filtrat ion rate (GFR) AmericanOrdered By: Walter Becker on 08-04-2024 Estimated GFR (MDRD) Amer 70 mL/min >60 [facility] Comment on above: GFR Calc Glomerular filtration rate ( GFR) estimationOrdered By: Walter Becker on 08-04-2024 Estimated GFR (MDRD) Non-Af Amer 58 mL/min Low >60 [facility] Comment on above: Non- GFR Calc Glucose Ql (U)Ordered By: Horner on 08-04-2024 Urine Glucose (UA) Normal mg/dl Normal [facility] Glucose measurementOrdered B y: Walter Becker on 08-04-2024 Glucose [Mass/Vol] 128 mg/dL High 74-106 [facility] Comment on above: Fasting Glucose resu lt greater than or equal to 126 mg/dL suggests DIABETES MELLITUS per A.D.A. criteria. Hematocrit Auto (Bld) [Volum e fraction]Ordered By: Walter Becker on 08-04-2024 Hematocrit (Bld) [Volume fraction] 41.3 % 40-54 [facility] Hemoglobin measurementOrdere d By: Walter Becker on 08-04-2024 Hemoglobin (Bld) [Mass/Vol] 12.9 g/dL Low 13.0-16. 5 [facility] Ketones Test strip Ql (U)Ord ered By: Walter Becker on 08-04-2024 Ketones Ql (U) Negative Negative [facility] Laboratory - Chemistry and C hemistry - challengeOrdered By: Walter Becker on 08-04-2024 AST [Catalytic activity/Vol] 12 U/L Low 15-37 [facility] MCV (mean corpuscular volume ) determinationOrdered By: Walter Becker on 08-04-2024 MCV (RBC) [Entitic vol] 87.3 fL 80-94 [facility] Mean corpuscular hemoglobin (MCH) determinationOrdered By: Walter Becker on 08-04-2024 MCH (RBC) [Entitic mass] 27.3 pg 27.0-32.0 [facility] Mean corpuscular hemoglobin concentration (MCHC) determinationOrdered By: Walter Becker on 08-04-2024 MCHC (RBC) [Mass/Vol] 31.2 g/dL Low 32-36 [facility] Mean platelet volume determi nationOrdered By: Walter Becker on 08-04-2024 Platelet mean volume (Bld) [Entitic vol] 9.3 fL 6.2-12.0 [facility] Microscopic analysis of urin e for red blood cells (RBC)Ordered By: Walter Becker on 08-04-2024 Urine RBC 0 SEEN /hpf 0-5 [facility] Mucus LM Ql (Urine sed)Order ed By: Walter Becker on 08-04-2024 Mucus Ql (Urine sed) 0 SEEN /hpf [facility] Nitrite Test strip Ql (U)Ord ered By: Walter Becker on 08-04-2024 Nitrite Ql (U) Negative Negative [facility] Platelet countOrdered By: Horner on 08-04-2024 Platelets (Bld) [#/Vol] 295 10*3/uL 150-450 [facility] Potassium measurementOrdered By: Walter Becker on 08-04-2024 Potassium [Moles/Vol] 3.9 mmol/L 3.5-5.1 [facility] Protein Test strip Ql (U)Ord ered By: Walter Becker on 08-04-2024 Protein Ql (U) Negative Negative [facility] RBC Auto (Bld) [#/Vol]Ordere d By: Walter Becker on 08-04-2024 RBC (Bld) [#/Vol] 4.73 10*6/uL 4.6-6.2 [facility] Serum anion gap measurementO rdered By: Walter Becker on 08-04-2024 Anion gap [Moles/Vol] 7 mmol/L 5-15 [facility] Serum globulin measurementOr dered By: Walter Becker on 08-04-2024 Globulin (S) [Mass/Vol] 3.5 g/dL 2.2-4.2 [facility] Serum or plasma alanine davis otransferase (ALT) measurementOrdered By: Walter Becker on 08-04-2024 ALT [Catalytic activity/Vol] 19 U/L 16-61 [facility] Serum or plasma albumin antoine urement (mass/volume)Ordered By: Walter Becker on 08-04-2024 Albumin [Mass/Vol] 3.5 g/dL 3.2-5.0 [facility] Serum or plasma alkaline marilin sphatase measurementOrdered By: Walter Becker on 08-04-2024 ALP [Catalytic activity/Vol] 125 U/L High 45-117 [facility] Serum or plasma calcium antoine urement (mass/volume)Ordered By: Walter Becker on 08-04-2024 Calcium [Mass/Vol] 9.7 mg/dL 8.5-10.1 [facility] Serum or plasma creatinine m easurement (mass/volume)Ordered By: Walter Becker on 08-04-2024 Creatinine [Mass/Vol] 1.28 mg/dL 0.70-1.30 [facility] Comment on above: The validity of the calculated GFR & GFRAA in patients over 70 years has not been determined. Clinical correlation is essential. Serum or plasma urea nitroge n measurement (mass/volume)Ordered By: Walter Becker on 08-04-2024 Urea nitrogen [Mass/Vol] 27 mg/dL High 7-18 [facility] Sodium levelOrdered By: Walter Becker on 08-04-2024 Sodium [Moles/Vol] 140 mmol/L 136-145 [facility] Total proteinOrdered By: Crystal Becker on 08-04-2024 Protein [Mass/Vol] 7.0 g/dL 6.4-8.2 [facility] Urinalysis, Completeon 08-04 WBC 0-5 SEEN Normal 0-5 [facility] Comment on above: Order Comment: SCCAT HETER SPECIMEN Performed By: #### L 400.0001, ####[facility] [address] [place], [address] BACTERIA 0 SEEN Normal None Seen [facility] Comment on above: Order Comment: SCCAT HETER SPECIMEN Performed By: #### L 400.0001, ####[facility] [address] [place], [address] EPI,SQUAMOUS 0 SEEN Normal 0-5 [facility] Comment on above: Order Comment: SCCAT HETER SPECIMEN Performed By: #### L 400.0001, ####[facility] [address] [place], [address] Mucus Ql (Urine sed) 0 SEEN Normal [facility] Comment on above: Order Comment: SCCAT HETER SPECIMEN Performed By: #### L 400.0001, M100.2200 ####[facility] [address] [place], [address] RBC 0 SEEN Normal 0-5 [facility] Comment on above: Order Comment: SCCAT HETER SPECIMEN Performed By: #### L 400.0001, M100.2200 ####[facility] [address] [place], [address] Urine blood detectionOrdered By: Walter Becker on 08-04-2024 Urine Occult Blood Negative Negative [facility] Urine clarityOrdered By: Crystal Becker on 08-04-2024 Clarity (U) Clear Clear [facility] Urine color determinationOrd ered By: Walter Becker on 08-04-2024 Color (U) Yellow Yellow [facility] Urine cultureOrdered By: Crystal Becker on 08-04-2024 Bacteria identified Cx Nom (U) Culture exhibits no growth. [facility] Urine leukocyte esterase det ection by dipstickOrdered By: Walter Becker on 08-04-2024 Leukocyte esterase Test strip Ql (U) Negative Negative [facility] Urine pHOrdered By: Walter floyd on 08-04-2024 pH (U) 6.0 [pH] 5.0 - 8.0 [facility] Urine sediment bacteria coun t by microscopy (number/high power field)Ordered By: Walter Becker on 08-04-2024 Bacteria LM.HPF (Urine sed) [#/Area] 0 /[HPF] None Seen [facility] Urine specific gravity measu rementOrdered By: Walter Becker on 08-04-2024 Specific gravity (U) [Rel density] 1.010 1.002-1.03 0 [facility] Urobilinogen Ql (U)Ordered B y: Walter Becker on 08-04-2024 Urine Urobilinogen Normal mg/dl Normal [facility] White blood cell (WBC) count Ordered By: Walter Becker on 08-04-2024 WBC (Bld) [#/Vol] 9.3 10*3/uL 4.4-11.0 [facility] White blood cell countOrdere d By: Walter Becker on 08-04-2024 Urine WBC 0-5 SEEN /hpf 0-5 [facility] Albumin to globulin ratioOrd ered By: Walter Becker on 07-27-2024 Albumin/Globulin [Mass ratio] 1.1 {ratio} 0.9-2.4 [facility] Bilirubin, totalOrdered By: Walter Becker on 07-27-2024 Bilirubin [Mass/Vol] 0.60 mg/dL 0.20-1.00 [facility] Comment on above: For patients on eltr ombopag therapy, use of Dimension [place] TBIL is not recommended. Blood urea nitrogen (BUN)/cr eatinine ratioOrdered By: Walter Becker on 07-27-2024 Urea nitrogen/Creatinine [Mass ratio] 20.0 mg/mg 10-20 [facility] CBC-Complete Blood Cnt No Di ffon 07-27-2024 Erythrocyte distribution width (RBC) [Ratio] 13.5 % Normal 11.6-14.6 [facility] Comment on above: Order Comment: 215-2 Performed By: #### L 500.4050, L100.0500 ####[facility] [address] [place], [address] Hematocrit (Bld) [Volume fraction] 35.7 % Low 40-54 [facility] Comment on above: Order Comment: 215-2 Performed By: #### L 500.4050, L100.0500 ####[facility] [address] [place], [address] Hemoglobin (Bld) [Mass/Vol] 11.5 g/dL Low 13.0-16. 5 [facility] Comment on above: Order Comment: 215-2 Performed By: #### L 500.4050, L100.0500 ####[facility] [address] [place], [address] MCH (RBC) [Entitic mass] 28.2 pg Normal 27.0-32.0 [facility] Comment on above: Order Comment: 215-2 Performed By: #### L 500.4050, L100.0500 ####[facility] [address] [place], [address] MCHC (RBC) [Mass/Vol] 32.2 g/dL Normal 32-36 [facility] Comment on above: Order Comment: 215-2 Performed By: #### L 500.4050, L100.0500 ####[facility] [address] [place], [address] MCV (RBC) [Entitic vol] 87.5 fL Normal 80-94 [facility] Comment on above: Order Comment: 215-2 Performed By: #### L 500.4050, L100.0500 ####[facility] [address] [place], [address] Platelet mean volume (Bld) [Entitic vol] 9.6 fL Normal 6.2-12.0 [facility] Comment on above: Order Comment: 215-2 Performed By: #### L 500.4050, L100.0500 ####[facility] [address] [place], [address] Platelets (Bld) [#/Vol] 192 10*3/uL Normal 150-450 [facility] Comment on above: Order Comment: 215-2 Performed By: #### L 500.4050, L100.0500 ####[facility] [address] [place], [address] RBC (Bld) [#/Vol] 4.08 10*6/uL Low 4.6-6.2 [facility] Comment on above: Order Comment: 215-2 Performed By: #### L 500.4050, L100.0500 ####[facility] [address] [place], [address] RDW SD 43.1 fl Normal 35.1-43.9 [facility] Comment on above: Order Comment: 215-2 Performed By: #### L 500.4050, L100.0500 ####[facility] [address] [place], [address] WBC (Bld) [#/Vol] 7.2 10*3/uL Normal 4.4-11.0 [facility] Comment on above: Order Comment: 215-2 Performed By: #### L 500.4050, L100.0500 ####[facility] [address] [place], [address] Carbon dioxide measurementOr dered By: Walter Becker on 07-27-2024 CO2 [Moles/Vol] 29.0 mmol/L 21.0-32.0 [facility] Chloride measurementOrdered By: Walter Becker on 07-27-2024 Chloride [Moles/Vol] 105 mmol/L 98-107 [facility] Comprehensive Metabolic Prof ilon 07-27-2024 Albumin [Mass/Vol] 3.1 g/dL Low 3.2-5.0 [facility] Comment on above: Order Comment: 215-2 Performed By: #### L 500.4050, L100.0500 ####[facility] [address] [place], [address] Albumin/Globulin [Mass ratio] 1.1 {ratio} Normal 0.9-2.4 [facility] Comment on above: Order Comment: 215-2 Performed By: #### L 500.4050, L100.0500 ####[facility] [address] [place], [address] ALK P 124 U/L High 45-117 [facility] Comment on above: Order Comment: 215-2 Performed By: #### L 500.4050, L100.0500 ####[facility] [address] [place], [address] ALT [Catalytic activity/Vol] 20 U/L Normal 16-61 [facility] Comment on above: Order Comment: 215-2 Performed By: #### L 500.4050, L100.0500 ####[facility] [address] [place], [address] AST [Catalytic activity/Vol] 10 U/L Low 15-37 [facility] Comment on above: Order Comment: 215-2 Performed By: #### L 500.4050, L100.0500 ####[facility] [address] [place], [address] Bilirubin [Mass/Vol] 0.60 mg/dL Normal 0.20-1.00 [facility] Comment on above: Order Comment: 215-2 Result Comment: For patients on eltrombopag therapy, use of Dimension [place] TBIL is not recommended. Performed By: #### L 500.4050, L100.0500 ####[facility] [address] [place], [address] BUN/CRE 20.0 RATIO Normal 10-20 [facility] Comment on above: Order Comment: 215-2 Performed By: #### L 500.4050, L100.0500 ####[facility] [address] [place], [address] CA,Total 8.9 mg/dL Normal 8.5-10.1 [facility] Comment on above: Order Comment: 215-2 Performed By: #### L 500.4050, L100.0500 ####[facility] [address] [place], [address] Chloride [Moles/Vol] 105 mmol/L Normal 98-107 [facility] Comment on above: Order Comment: 215-2 Performed By: #### L 500.4050, L100.0500 ####[facility] [address] [place], [address] CO2 [Moles/Vol] 29.0 mmol/L Normal 21.0-32.0 [facility] Comment on above: Order Comment: 215-2 Performed By: #### L 500.4050, L100.0500 ####[facility] [address] [place], [address] Creatinine [Mass/Vol] 1.10 mg/dL Normal 0.70-1.30 [facility] Comment on above: Order Comment: 215-2 Result Comment: The validity of the calculated GFR GFRAA in patients over70 years has not been determined. Clinical correlation isessential. Performed By: #### L 500.4050, L100.0500 ####[facility] [address] [place], [address] EST GFR - AA 84 mL/min Normal >60 [facility] Comment on above: Order Comment: -2 Result Comment: Afri can [place] GFR Calc Performed By: #### L 500.4050, L100.0500 ####[facility] [address] [place], [address] GAP 4 Low 5-15 [facility] Comment on above: Order Comment: -2 Performed By: #### L 500.4050, L100.0500 ####[facility] [address] [place], [address] GFR/1.73 sq M.predicted among non-blacks MDRD (S/P/Bld) [Vol rate/Area] 69 mL/min/{1.73_m2} Normal >60 [facility] Comment on above: Order Comment: 215-2 Result Comment: Non- GFR Calc Performed By: #### L 500.4050, L100.0500 ####[facility] [address] [place], [address] Globulin (S) [Mass/Vol] 2.9 g/dL Normal 2.2-4.[address] [facility] Comment on above: Order Comment: 215-2 Performed By: #### L 500.4050, L100.0500 ####[facility] [address] [place], [address] Glucose [Mass/Vol] 127 mg/dL High 74-106 [facility] Comment on above: Order Comment: 215-2 Result Comment: Fast ing Glucose result greater than or equal to 126 mg/dLsuggests DIABETES MELLITUS per A.D.A. criteria. Performed By: #### L 500.4050, L100.0500 ####[facility] [address] [place], [address] Potassium [Moles/Vol] 4.1 mmol/L Normal 3.5-5.1 [facility] Comment on above: Order Comment: 215-2 Performed By: #### L 500.4050, L100.0500 ####[facility] [address] [place], [address] Sodium [Moles/Vol] 137 mmol/L Normal 136-145 [facility] Comment on above: Order Comment: 215-2 Performed By: #### L 500.4050, L100.0500 ####[facility] [address] [place], [address] T PROT 6.0 g/dL Low 6.4-8.2 [facility] Comment on above: Order Comment: 215-2 Performed By: #### L 500.4050, L100.0500 ####[facility] [address] [place], [address] Urea nitrogen [Mass/Vol] 22 mg/dL High 7-18 [facility] Comment on above: Order Comment: 215-2 Performed By: #### L 500.4050, L100.0500 ####[facility] [address] [place], [address] Erythrocyte distribution wid th (RBC) [Ratio]Ordered By: Walter Becker on 07-27-2024 Erythrocyte distribution width (RBC) [Entitic vol] 43.1 fL 35.1-43.9 [facility] Erythrocyte distribution wid th ratioOrdered By: Walter Becker on 07-27-2024 Erythrocyte distribution width (RBC) [Ratio] 13.5 % 11.6-14.6 [facility] Estimated glomerular filtrat ion rate (GFR) AmericanOrdered By: Walter Becker on 07-27-2024 Estimated GFR (MDRD) Amer 84 mL/min >60 [facility] Comment on above: GFR Calc Glomerular filtration rate ( GFR) estimationOrdered By: Walter Becker on 07-27-2024 Estimated GFR (MDRD) Non-Af Amer 69 mL/min >60 [facility] Comment on above: Non- GFR Calc Glucose measurementOrdered B y: Walter Becker on 07-27-2024 Glucose [Mass/Vol] 127 mg/dL High 74-106 [facility] Comment on above: Fasting Glucose resu lt greater than or equal to 126 mg/dL suggests DIABETES MELLITUS per A.D.A. criteria. Hematocrit Auto (Bld) [Volum e fraction]Ordered By: Walter Becker on 07-27-2024 Hematocrit (Bld) [Volume fraction] 35.7 % Low 40-54 [facility] Hemoglobin measurementOrdere d By: Walter Becker on 07-27-2024 Hemoglobin (Bld) [Mass/Vol] 11.5 g/dL Low 13.0-16. 5 [facility] Laboratory - Chemistry and C hemistry - challengeOrdered By: Walter Becker on 07-27-2024 AST [Catalytic activity/Vol] 10 U/L Low 15-37 [facility] MCV (mean corpuscular volume ) determinationOrdered By: Walter Becker on 07-27-2024 MCV (RBC) [Entitic vol] 87.5 fL 80-94 [facility] Mean corpuscular hemoglobin (MCH) determinationOrdered By: Walter Becker on 07-27-2024 MCH (RBC) [Entitic mass] 28.2 pg 27.0-32.0 [facility] Mean corpuscular hemoglobin concentration (MCHC) determinationOrdered By: Walter Becker on 07-27-2024 MCHC (RBC) [Mass/Vol] 32.2 g/dL 32-36 [facility] Mean platelet volume determi nationOrdered By: Walter Becker on 07-27-2024 Platelet mean volume (Bld) [Entitic vol] 9.6 fL 6.2-12.0 [facility] Platelet countOrdered By: Horner on 07-27-2024 Platelets (Bld) [#/Vol] 192 10*3/uL 150-450 [facility] Potassium measurementOrdered By: Walter Becker on 07-27-2024 Potassium [Moles/Vol] 4.1 mmol/L 3.5-5.1 [facility] RBC Auto (Bld) [#/Vol]Ordere d By: Walter Becker on 07-27-2024 RBC (Bld) [#/Vol] 4.08 10*6/uL Low 4.6-6.2 [facility] Serum anion gap measurementO rdered By: Walter Becker on 07-27-2024 Anion gap [Moles/Vol] 4 mmol/L Low 5-15 [facility] Serum globulin measurementOr dered By: Walter Becker on 07-27-2024 Globulin (S) [Mass/Vol] 2.9 g/dL 2.2-4.[address] [facility] Serum or plasma alanine davis otransferase (ALT) measurementOrdered By: Walter Becker on 07-27-2024 ALT [Catalytic activity/Vol] 20 U/L 16-61 [facility] Serum or plasma albumin antoine urement (mass/volume)Ordered By: Walter Becker on 07-27-2024 Albumin [Mass/Vol] 3.1 g/dL Low 3.2-5.0 [facility] Serum or plasma alkaline marilin sphatase measurementOrdered By: Walter Becker on 07-27-2024 ALP [Catalytic activity/Vol] 124 U/L High 45-117 [facility] Serum or plasma calcium antoine urement (mass/volume)Ordered By: Walter Becker on 07-27-2024 Calcium [Mass/Vol] 8.9 mg/dL 8.5-10.1 [facility] Serum or plasma creatinine m easurement (mass/volume)Ordered By: Walter Becker on 07-27-2024 Creatinine [Mass/Vol] 1.10 mg/dL 0.70-1.30 [facility] Comment on above: The validity of the calculated GFR & GFRAA in patients over 70 years has not been determined. Clinical correlation is essential. Serum or plasma urea nitroge n measurement (mass/volume)Ordered By: Walter Becker on 07-27-2024 Urea nitrogen [Mass/Vol] 22 mg/dL High 01-29 [facility] Sodium levelOrdered By: Walter Becker on 07-27-2024 Sodium [Moles/Vol] 137 mmol/L 136-145 [facility] Total proteinOrdered By: Crystal Becker on 07-27-2024 Protein [Mass/Vol] 6.0 g/dL Low 6.4-8.2 [facility] White blood cell (WBC) count Ordered By: Walter Becker on 07-27-2024 WBC (Bld) [#/Vol] 7.2 10*3/uL 4.4-11.0 [facility] Albumin to globulin ratioOrd ered By: Walter Becker on 07-07-2024 Albumin/Globulin [Mass ratio] 1.0 {ratio} 0.9-2.4 [facility] Bilirubin, totalOrdered By: Walter Becker on 07-07-2024 Bilirubin [Mass/Vol] 0.40 mg/dL 0.20-1.00 [facility] Comment on above: For patients on eltr ombopag therapy, use of Dimension [place] TBIL is not recommended. Blood urea nitrogen (BUN)/cr eatinine ratioOrdered By: Walter Becker on 07-07-2024 Urea nitrogen/Creatinine [Mass ratio] 23.6 mg/mg High 05-03 [facility] CBC-Complete Blood Cnt No Di ffon 07-07-2024 Erythrocyte distribution width (RBC) [Ratio] 13.3 % Normal 11.6-14.6 [facility] Comment on above: Order Comment: 215.2 Performed By: #### L 100.0500, L500.4050, L501.9990 ####[facility] [address] [place], [address] Hematocrit (Bld) [Volume fraction] 38.1 % Low 40-54 [facility] Comment on above: Order Comment: 215.2 Performed By: #### L 100.0500, L500.4050, [id number] ####[facility] [address] [place], [address] Hemoglobin (Bld) [Mass/Vol] 12.3 g/dL Low 13.0-16. 5 [facility] Comment on above: Order Comment: 215.2 Performed By: #### L 100.0500, L500.4050, [id number] ####[facility] [address] [place], [address] MCH (RBC) [Entitic mass] 28.3 pg Normal 27.0-32.0 [facility] Comment on above: Order Comment: 215.2 Performed By: #### L 100.0500, L500.4050, [id number] ####[facility] [address] [place], [address] MCHC (RBC) [Mass/Vol] 32.3 g/dL Normal 32-36 [facility] Comment on above: Order Comment: 215.2 Performed By: #### L 100.0500, L500.4050, [id number] ####[facility] [address] [place], [address] MCV (RBC) [Entitic vol] 87.6 fL Normal 80-94 [facility] Comment on above: Order Comment: 215.2 Performed By: #### L 100.0500, L500.4050, [id number] ####[facility] [address] [place], [address] Platelet mean volume (Bld) [Entitic vol] 9.1 fL Normal 6.2-12.0 [facility] Comment on above: Order Comment: 215.2 Performed By: #### L 100.0500, L500.4050, [id number] ####[facility] [address] [place], [address] Platelets (Bld) [#/Vol] 211 10*3/uL Normal 150-450 [facility] Comment on above: Order Comment: 215.2 Performed By: #### L 100.0500, L500.4050, [id number] ####[facility] [address] [place], [address] RBC (Bld) [#/Vol] 4.35 10*6/uL Low 4.6-6.2 [facility] Comment on above: Order Comment: 215.2 Performed By: #### L 100.0500, L500.4050, [id number] ####[facility] [address] [place], [address] RDW SD 42.5 fl Normal 35.1-43.9 [facility] Comment on above: Order Comment: 215.2 Performed By: #### L 100.0500, L500.4050, [id number] ####[facility] [address] [place], [address] WBC (Bld) [#/Vol] 7.6 10*3/uL Normal 4.4-11.0 [facility] Comment on above: Order Comment: 215.2 Performed By: #### L 100.0500, L500.4050, [id number] ####[facility] [address] [place], [address] Carbon dioxide measurementOr dered By: Walter Becker on 07-07-2024 CO2 [Moles/Vol] 32.0 mmol/L 21.0-32.0 [facility] Chloride measurementOrdered By: Walter Becker on 12-24-2024 Chloride [Moles/Vol] 107 mmol/L 98-107 [facility] Comprehensive Metabolic Prof ilon 07-07-2024 Albumin [Mass/Vol] 2.9 g/dL Low 3.2-5.0 [facility] Comment on above: Order Comment: 215.2 Performed By: #### L 100.0500, L500.4050, [id number] ####[facility] [address] [place], [address] Albumin/Globulin [Mass ratio] 1.0 {ratio} Normal 0.9-2.4 [facility] Comment on above: Order Comment: 215.2 Performed By: #### L 100.0500, L500.4050, [id number] ####[facility] [address] [place], [address] ALK P 121 U/L High 45-117 [facility] Comment on above: Order Comment: 215.2 Performed By: #### L 100.0500, L500.4050, [id number] ####[facility] [address] [place], [address] ALT [Catalytic activity/Vol] 20 U/L Normal 16-61 [facility] Comment on above: Order Comment: 215.2 Performed By: #### L 100.0500, L500.4050, [id number] ####[facility] [address] [place], [address] AST [Catalytic activity/Vol] 10 U/L Low 15-37 [facility] Comment on above: Order Comment: 215.2 Performed By: #### L 100.0500, L500.4050, [id number] ####[facility] [address] [place], [address] Bilirubin [Mass/Vol] 0.40 mg/dL Normal 0.20-1.00 [facility] Comment on above: Order Comment: 215.2 Result Comment: For patients on eltrombopag therapy, use of Dimension [place] TBIL is not recommended. Performed By: #### L 100.0500, L500.4050, [id number] ####[facility] [address] [place], [address] BUN/CRE 23.6 RATIO High 10-20 [facility] Comment on above: Order Comment: 215.2 Performed By: #### L 100.0500, L500.4050, [id number] ####[facility] [address] [place], [address] CA,Total 9.1 mg/dL Normal 8.5-10.1 [facility] Comment on above: Order Comment: 215.2 Performed By: #### L 100.0500, L500.4050, [id number] ####[facility] [address] [place], [address] Chloride [Moles/Vol] 107 mmol/L Normal 98-107 [facility] Comment on above: Order Comment: 215.2 Performed By: #### L 100.0500, L500.4050, [id number] ####[facility] [address] [place], [address] CO2 [Moles/Vol] 32.0 mmol/L Normal 21.0-32.0 [facility] Comment on above: Order Comment: 215.2 Performed By: #### L 100.0500, L500.4050, [id number] ####[facility] [address] [place], [address] Creatinine [Mass/Vol] 1.06 mg/dL Normal 0.70-1.30 [facility] Comment on above: Order Comment: 215.2 Result Comment: The validity of the calculated GFR GFRAA in patients over70 years has not been determined. Clinical correlation isessential. Performed By: #### L 100.0500, L500.4050, [id number] ####[facility] [address] [place], [address] EST GFR - AA 87 mL/min Normal >60 [facility] Comment on above: Order Comment: 215.2 Result Comment: Afri can [place] GFR Calc Performed By: #### L 100.0500, L500.4050, [id number] ####[facility] [address] [place], [address] GAP 3 Low 5-15 [facility] Comment on above: Order Comment: 215.2 Performed By: #### L 100.0500, L500.4050, [id number] ####[facility] [address] [place], [address] GFR/1.73 sq M.predicted among non-blacks MDRD (S/P/Bld) [Vol rate/Area] 72 mL/min/{1.73_m2} Normal >60 [facility] Comment on above: Order Comment: 215.2 Result Comment: Non- GFR Calc Performed By: #### L 100.0500, L500.4050, [id number] ####[facility] [address] [place], [address] Globulin (S) [Mass/Vol] 3.0 g/dL Normal 2.2-4.[address] [facility] Comment on above: Order Comment: 215.2 Performed By: #### L 100.0500, L500.4050, [id number] ####[facility] [address] [place], [address] Glucose [Mass/Vol] 130 mg/dL High 74-106 [facility] Comment on above: Order Comment: 215.2 Result Comment: Fast ing Glucose result greater than or equal to 126 mg/dLsuggests DIABETES MELLITUS per A.D.A. criteria. Performed By: #### L 100.0500, L500.4050, [id number] ####[facility] [address] [place], [address] Potassium [Moles/Vol] 3.9 mmol/L Normal 3.5-5.1 [facility] Comment on above: Order Comment: 215.2 Performed By: #### L 100.0500, L500.4050, [id number] ####[facility] [address] [place], [address] Sodium [Moles/Vol] 141 mmol/L Normal 136-145 [facility] Comment on above: Order Comment: 215.2 Performed By: #### L 100.0500, L500.4050, [id number] ####[facility] [address] [place], [address] T PROT 5.9 g/dL Low 6.4-8.2 [facility] Comment on above: Order Comment: 215.2 Performed By: #### L 100.0500, L500.4050, [id number] ####[facility] [address] [place], [address] Urea nitrogen [Mass/Vol] 25 mg/dL High 7-18 [facility] Comment on above: Order Comment: 215.2 Performed By: #### L 100.0500, L500.4050, [id number] ####[facility] [address] [place], [address] Erythrocyte distribution wid th (RBC) [Ratio]Ordered By: Walter Becker on 07-07-2024 Erythrocyte distribution width (RBC) [Entitic vol] 42.5 fL 35.1-43.9 [facility] Erythrocyte distribution wid th ratioOrdered By: Walter Becker on 07-07-2024 Erythrocyte distribution width (RBC) [Ratio] 13.3 % 11.6-14.6 [facility] Estimated glomerular filtrat ion rate (GFR) AmericanOrdered By: Walter Becker on 07-07-2024 Estimated GFR (MDRD) Amer 87 mL/min >60 [facility] Comment on above: GFR Calc Glomerular filtration rate ( GFR) estimationOrdered By: Walter Becker on 07-07-2024 Estimated GFR (MDRD) Non-Af Amer 72 mL/min >60 [facility] Comment on above: Non- GFR Calc Glucose measurementOrdered B y: Walter Becker on 07-07-2024 Glucose [Mass/Vol] 130 mg/dL High 74-106 [facility] Comment on above: Fasting Glucose resu lt greater than or equal to 126 mg/dL suggests DIABETES MELLITUS per A.D.A. criteria. Hematocrit Auto (Bld) [Volum e fraction]Ordered By: Walter Becker on 07-07-2024 Hematocrit (Bld) [Volume fraction] 38.1 % Low 40-54 [facility] Hemoglobin A1con 07-07-2024 HbA1c (Bld) [Mass fraction] 6.4 % High 3.8-5.6 [facility] Comment on above: Order Comment: 215.2 Result Comment: Norm al < 5.7 % Prediabetic 5.7 - 6.4 % Diabetic >or= 6.5 % Please note range changes. Performed By: #### L 100.0500, L500.4050, L501.9985 ####[facility] [address] [place], [address] Hemoglobin A1c percentageOrd ered By: Walter Becker on 07-07-2024 HbA1c (Bld) [Mass fraction] 6.4 % High 3.8-5.6 [facility] Comment on above: Normal < 5.7 % Predi abetic 5.7 - 6.4 % Diabetic >or= 6.5 % Please note range changes. Hemoglobin measurementOrdere d By: Walter Becker on 07-07-2024 Hemoglobin (Bld) [Mass/Vol] 12.3 g/dL Low 13.0-16. 5 [facility] Laboratory - Chemistry and C hemistry - challengeOrdered By: Walter Becker on 07-07-2024 AST [Catalytic activity/Vol] 10 U/L Low 15-37 [facility] MCV (mean corpuscular volume ) determinationOrdered By: Walter Becker on 07-07-2024 MCV (RBC) [Entitic vol] 87.6 fL 80-94 [facility] Mean corpuscular hemoglobin (MCH) determinationOrdered By: Walter Becker on 07-07-2024 MCH (RBC) [Entitic mass] 28.3 pg 27.0-32.0 [facility] Mean corpuscular hemoglobin concentration (MCHC) determinationOrdered By: Walter Becker on 07-07-2024 MCHC (RBC) [Mass/Vol] 32.3 g/dL 32-36 [facility] Mean platelet volume determi nationOrdered By: Walter Becker on 07-07-2024 Platelet mean volume (Bld) [Entitic vol] 9.1 fL 6.2-12.0 [facility] Platelet countOrdered By: Horner on 07-07-2024 Platelets (Bld) [#/Vol] 211 10*3/uL 150-450 [facility] Potassium measurementOrdered By: Walter Becker on 07-07-2024 Potassium [Moles/Vol] 3.9 mmol/L 3.5-5.1 [facility] RBC Auto (Bld) [#/Vol]Ordere d By: Walter Becker on 07-07-2024 RBC (Bld) [#/Vol] 4.35 10*6/uL Low 4.6-6.2 [facility] Serum anion gap measurementO rdered By: Walter Becker on 07-07-2024 Anion gap [Moles/Vol] 3 mmol/L Low 5-15 [facility] Serum globulin measurementOr dered By: Walter Becker on 07-07-2024 Globulin (S) [Mass/Vol] 3.0 g/dL 2.2-4.2 [facility] Serum or plasma alanine davis otransferase (ALT) measurementOrdered By: Walter Becker on 07-07-2024 ALT [Catalytic activity/Vol] 20 U/L 16-61 [facility] Serum or plasma albumin antoine urement (mass/volume)Ordered By: Walter Becker on 07-07-2024 Albumin [Mass/Vol] 2.9 g/dL Low 3.2-5.0 [facility] Serum or plasma alkaline marilin sphatase measurementOrdered By: Walter Becker on 07-07-2024 ALP [Catalytic activity/Vol] 121 U/L High 45-117 [facility] Serum or plasma calcium antoine urement (mass/volume)Ordered By: Walter Becker on 07-07-2024 Calcium [Mass/Vol] 9.1 mg/dL 8.5-10.1 [facility] Serum or plasma creatinine m easurement (mass/volume)Ordered By: Walter Becker on 07-07-2024 Creatinine [Mass/Vol] 1.06 mg/dL 0.70-1.30 [facility] Comment on above: The validity of the calculated GFR & GFRAA in patients over 70 years has not been determined. Clinical correlation is essential. Serum or plasma urea nitroge n measurement (mass/volume)Ordered By: Walter Becker on 07-07-2024 Urea nitrogen [Mass/Vol] 25 mg/dL High 7-18 [facility] Sodium levelOrdered By: Walter Becker on 07-07-2024 Sodium [Moles/Vol] 141 mmol/L 136-145 [facility] Total proteinOrdered By: Crystal Becker on 07-07-2024 Protein [Mass/Vol] 5.9 g/dL Low 6.4-8.2 [facility] White blood cell (WBC) count Ordered By: Walter Becker on 07-07-2024 WBC (Bld) [#/Vol] 7.6 10*3/uL 4.4-11.0 [facility] Vitamin D,25 Hydroxyon 07-02 Vitamin D 25-OH 58.5 ng/mL Normal [facility] Comment on above: Order Comment: 215.2 Result Comment: Laure min D 25(OH) Status Range Deficiency <20 ng/mL (50nmol/L) Insufficiency 20 - 30 ng/mL (50 - 75 nmol/L) Sufficiency 30 - 100 ng/mL (75 - 250 nmol/L) Toxicity >100 ng/mL (>250 nmol/L) Performed By: #### L 506.1000 ####[facility] [address] [place], [address] 84-QO-Lwvwlyt DOrdered By: Twin Becker on 07-01-2024 Vitamin D 25-Hydroxy 58.5 ng/mL [facility] Comment on above: Vitamin D 25(OH) Sta tus Range Deficiency <20 ng/mL (50nmol/L) Insufficiency 20 - 30 ng/mL (50 - 75 nmol/L) Sufficiency 30 - 100 ng/mL (75 - 250 nmol/L) Toxicity >100 ng/mL (>250 nmol/L) Bedside Glucoseon 06-01-2024 FINGERSTICK GLU 183 mg/dL High 74-106 [facility] Comment on above: Result Comment: JAZ BRANDON OF PATIENT CARE PER NURSING PROTOCOL Performed By: #### L 501.080 ####[facility] [address] [place], [address] Fluor Guidance for Spine Inj on 06-01-2024 Fluor Guidance for Spine Inj Normal [facility] Operative Reporton Operative Report Normal [facility] Laboratory - CoagulationOrde red By: Walter Becker on 10-25-2023 INR Coag (Bld) [Relative time] 3.2 {INR} [facility] PT Coag (PPP) [Time] 32.9 s 11.7-14.9 [facility] Laboratory - CoagulationOrde red By: Walter Becker on 10-16-2023 INR Coag (Bld) [Relative time] 1.9 {INR} [facility] PT Coag (PPP) [Time] 21.6 s 11.7-14.9 [facility] Basophil percentageOrdered B y: Walter Becker on 10-08-2023 Cholesterol [Mass/Vol] 107 mg/dL <200 [facility] Comment on above: <200 mg/dL Desirable 200-240 mg/dL Borderline >240 mg/dL High Risk Triglyceride [Mass/Vol] 133 mg/dL <199 [facility] Comment on above: The drugs N-Acetylcy steine and Metamizole may falsely depress this assay.Serum Triglycerides Reference Interval Normal <150 mg/dL Borderline high 150 - 199 mg/dL High 200 - 499 mg/dL Very High > or = 500 mg/dL Laboratory - Chemistry and C hemistry - challengeOrdered By: Walter Becker on 10-08-2023 ALT [Catalytic activity/Vol] 18 U/L 16-61 [facility] Cholesterol in HDL [Mass/Vol] 35 mg/dL >40 [facility] Comment on above: The drugs N-Acetylcy steine and Metamizole may falsely depress this assay. Reference Range HDL <40 mg/dL Low HDL Cholesterol HDL >or= 60 mg/dL High HDL Cholesterol Cholesterol in LDL [Mass/Vol] 45 mg/dL 0-130 [facility] CK [Catalytic activity/Vol] 59 U/L 39-308 [facility] No Panel InformationOrdered By: Walter Becker on 10-08-2023 VLDL Cholesterol 27 mg/dL 5-40 [facility] Thin prep Papanicolaou smear with manual screeningOrdered By: Walter Becker on 10-08-2023 Thin prep Papanicolaou smear with manual screening 10 U/L 15-37 [facility] Capillary blood internationa l normalized ratio (INR)Ordered By: Walter Becker on 10-04-2023 INR Coag (BldC) [Relative time] 2.2 [facility] Comment on above: Critical Value > 4.0 Whole blood prothrombin time Ordered By: Walter Becker on 10-04-2023 PT Coag (Bld) [Time] 22.6 s 11.7-14.9 [facility] Capillary blood internationa l normalized ratio (INR)Ordered By: Walter Becker on 10-01-2023 INR Coag (BldC) [Relative time] 1.9 [facility] Comment on above: Critical Value > 4.0 Whole blood prothrombin time Ordered By: Walter Becker on 10-01-2023 PT Coag (Bld) [Time] 19.9 s 11.7-14.9 [facility] Basophil percentageOrdered B y: Walter Becker on 09-25-2023 Bilirubin [Mass/Vol] 0.30 mg/dL 0.20-1.00 [facility] Comment on above: For patients on eltr ombopag therapy, use of Dimension [place] TBIL is not recommended. Chloride [Moles/Vol] 105 mmol/L 98-107 [facility] Glucose [Mass/Vol] 125 mg/dL 74-106 [facility] Comment on above: Fasting Glucose resu lt from 100 to 125 mg/dL suggests IMPAIRED HOMEOSTASIS per A.D.A. criteria. Hemoglobin (Bld) [Mass/Vol] 12.6 g/dL 13.0-16. 5 [facility] Potassium [Moles/Vol] 4.2 mmol/L 3.5-5.1 [facility] Protein [Mass/Vol] 6.2 g/dL 6.4-8.2 [facility] Sodium [Moles/Vol] 140 mmol/L 136-145 [facility] WBC (Bld) [#/Vol] 10.6 10*3/uL 4.4-11.0 [facility] Determination of erythrocyte mean corpuscular volume (MCV)Ordered By: Walter Becker on 09-25-2023 MCV (RBC) [Entitic vol] 85.8 fL 80-[address] [facility] Erythrocyte distribution wid th ratioOrdered By: [place] Rosita on 09-25-2023 Erythrocyte distribution width (RBC) [Ratio] 13.7 % 11.6-14.6 [facility] Erythrocyte distribution wid th standard deviationOrdered By: Walter Becker on 09-25-2023 Erythrocyte distribution width (RBC) [Entitic vol] 42.4 fL 35.1-43.9 [facility] Hematocrit Auto (Bld) [Volum e fraction]Ordered By: Walter Becker on 09-25-2023 Hematocrit (Bld) [Volume fraction] 39.4 % 40-54 [facility] Laboratory - Chemistry and C hemistry - challengeOrdered By: Walter Becker on 09-25-2023 Albumin/Globulin [Mass ratio] 1.1 {ratio} 0.9-2.4 [facility] ALP [Catalytic activity/Vol] 107 U/L 45-117 [facility] ALT [Catalytic activity/Vol] 19 U/L 16-61 [facility] CO2 [Moles/Vol] 29.0 mmol/L 21.0-32.0 [facility] Globulin (S) [Mass/Vol] 3.0 g/dL 2.2-4.2 [facility] Urea nitrogen/Creatinine [Mass ratio] 29.8 mg/mg 10-20 [facility] Laboratory - CoagulationOrde red By: Walter Becker on 09-25-2023 INR Coag (Bld) [Relative time] 2.8 {INR} [facility] PT Coag (PPP) [Time] 28.9 s 11.7-14.9 [facility] Laboratory - Hematology and Cell countsOrdered By: Walter Becker on 09-25-2023 MCH (RBC) [Entitic mass] 27.5 pg 27.0-32.0 [facility] MCHC (RBC) [Mass/Vol] 32.0 g/dL 32-36 [facility] Platelet mean volume (Bld) [Entitic vol] 9.9 fL 6.2-12.0 [facility] Platelets (Bld) [#/Vol] 235 10*3/uL 150-450 [facility] No Panel InformationOrdered By: Walter Becker on 09-25-2023 Estimated GFR (MDRD) Amer 75 mL/min >60 [facility] Comment on above: GFR Calc Estimated GFR (MDRD) Non-Af Amer 62 mL/min >60 [facility] [facility] Comment on above: Non- GFR Calc RBC Auto (Bld) [#/Vol]Ordere d By: Waletr Becker on 09-25-2023 RBC (Bld) [#/Vol] 4.59 10*6/uL 4.6-6.2 [facility] Serum or plasma calcium antoine urement (mass/volume)Ordered By: Walter Becker on 09-25-2023 Calcium [Mass/Vol] 9.6 mg/dL 8.5-10.1 [facility] Serum or plasma creatinine m easurement (mass/volume)Ordered By: Walter Becker on 09-25-2023 Creatinine [Mass/Vol] 1.21 mg/dL 0.70-1.30 [facility] Comment on above: The validity of the calculated GFR & GFRAA in patients over 70 years has not been determined. Clinical correlation is essential. Serum or plasma urea nitroge n measurement (mass/volume)Ordered By: Walter Becker on 09-25-2023 Urea nitrogen [Mass/Vol] 36 mg/dL 7-18 [facility] Thin prep Papanicolaou smear with manual screeningOrdered By: Walter Becker on 09-25-2023 Thin prep Papanicolaou smear with manual screening 3.2 g/dL 3.2-5.0 [facility] Thin prep Papanicolaou smear with manual screening 11 U/L 15-37 [facility] Thin prep Papanicolaou smear with manual screening 6 5-15 [facility] Laboratory - CoagulationOrde red By: Walter Becker on 09-18-2023 INR Coag (Bld) [Relative time] 1.6 {INR} [facility] PT Coag (PPP) [Time] 18.7 s 11.7-14.9 [facility] Capillary blood internationa l normalized ratio (INR)Ordered By: Walter Becker on 09-13-2023 INR Coag (BldC) [Relative time] 3.1 [facility] Comment on above: Critical Value > 4.0 Whole blood prothrombin time Ordered By: Walter Becker on 09-13-2023 PT Coag (Bld) [Time] 33.3 s 11.7-14.9 [facility] Capillary blood internationa l normalized ratio (INR)Ordered By: Walter Becker on 09-12-2023 INR Coag (BldC) [Relative time] 1.7 [facility] Comment on above: Critical Value > 4.0 Whole blood prothrombin time Ordered By: Walter Becker on 09-12-2023 PT Coag (Bld) [Time] 19.2 s 11.7-14.9 [facility] Capillary blood internationa l normalized ratio (INR)Ordered By: Walter Becker on 09-09-2023 INR Coag (BldC) [Relative time] 2.9 [facility] Comment on above: Critical Value > 4.0 Whole blood prothrombin time Ordered By: Walter Becker on 09-09-2023 PT Coag (Bld) [Time] 31.5 s 11.7-14.9 [facility] Laboratory - CoagulationOrde red By: Walter Becker on 08-26-2023 INR Coag (Bld) [Relative time] 2.2 {INR} [facility] PT Coag (PPP) [Time] 24.7 s 11.7-14.9 [facility] Capillary blood internationa l normalized ratio (INR)Ordered By: Walter Becker on 08-19-2023 INR Coag (BldC) [Relative time] 2.7 [facility] Comment on above: Critical Value > 4.0 Whole blood prothrombin time Ordered By: Walter Becker on 08-19-2023 PT Coag (Bld) [Time] 29.2 s 11.7-14.9 [facility] Capillary blood internationa l normalized ratio (INR)Ordered By: Walter Becker on 08-12-2023 INR Coag (BldC) [Relative time] 2.5 [facility] Comment on above: Critical Value > 4.0 Whole blood prothrombin time Ordered By: Walter Becker on 08-12-2023 PT Coag (Bld) [Time] 26.7 s 11.7-14.9 [facility] Capillary blood internationa l normalized ratio (INR)Ordered By: Walter Becker on 08-05-2023 INR Coag (BldC) [Relative time] 1.9 [facility] Comment on above: Critical Value > 4.0 Whole blood prothrombin time Ordered By: Walter Becker on 08-05-2023 PT Coag (Bld) [Time] 20.7 s 11.7-14.9 [facility] Laboratory - CoagulationOrde red By: Walter Becker on 07-29-2023 INR Coag (Bld) [Relative time] 2.3 {INR} [facility] Comment on above: Critical Value > 4.0 Whole blood prothrombin time Ordered By: Walter Becker on 07-29-2023 PT Coag (Bld) [Time] 25.0 s 11.7-14.9 [facility] Laboratory - CoagulationOrde red By: Walter Becker on 07-22-2023 INR Coag (Bld) [Relative time] 2.0 {INR} [facility] Comment on above: Critical Value > 4.0 Whole blood prothrombin time Ordered By: Walter Becker on 07-22-2023 PT Coag (Bld) [Time] 22.4 s 11.7-14.9 [facility] Laboratory - CoagulationOrde red By: Walter Becker on 07-19-2023 INR Coag (Bld) [Relative time] 3.4 {INR} [facility] Comment on above: Critical Value > 4.0 Whole blood prothrombin time Ordered By: Walter Becker on 07-19-2023 PT Coag (Bld) [Time] 36.2 s 11.7-14.9 [facility] Laboratory - CoagulationOrde red By: Walter Becker on 07-17-2023 INR Coag (Bld) [Relative time] 3.0 {INR} [facility] Comment on above: Critical Value > 4.0 Whole blood prothrombin time Ordered By: Walter Becker on 07-17-2023 PT Coag (Bld) [Time] 32.2 s 11.7-14.9 [facility] Laboratory - CoagulationOrde red By: Walter Becker on 07-10-2023 INR Coag (Bld) [Relative time] 2.3 {INR} [facility] Comment on above: Critical Value > 4.0 Whole blood prothrombin time Ordered By: Walter Becker on 07-10-2023 PT Coag (Bld) [Time] 25.4 s 11.7-14.9 [facility] Laboratory - CoagulationOrde red By: Walter Becker on 07-03-2023 INR Coag (Bld) [Relative time] 1.5 {INR} [facility] Comment on above: Critical Value > 4.0 Whole blood prothrombin time Ordered By: Walter Becker on 07-03-2023 PT Coag (Bld) [Time] 16.5 s 11.7-14.9 [facility] Laboratory - CoagulationOrde red By: Walter Becker on 06-26-2023 INR Coag (Bld) [Relative time] 2.3 {INR} [facility] Comment on above: Critical Value > 4.0 Whole blood prothrombin time Ordered By: Walter Becker on 06-26-2023 PT Coag (Bld) [Time] 24.7 s 11.7-14.9 [facility] Laboratory - CoagulationOrde red By: Walter Becker on 06-25-2023 INR Coag (Bld) [Relative time] 3.2 {INR} [facility] Comment on above: Critical Value > 4.0 Whole blood prothrombin time Ordered By: Walter Becker on 06-25-2023 PT Coag (Bld) [Time] 34.3 s 11.7-14.9 [facility] Laboratory - CoagulationOrde red By: Walter Becker on 06-24-2023 INR Coag (Bld) [Relative time] 3.4 {INR} [facility] Comment on above: Critical Value > 4.0 Whole blood prothrombin time Ordered By: Walter Becker on 06-24-2023 PT Coag (Bld) [Time] 36.4 s 11.7-14.9 [facility] Laboratory - CoagulationOrde red By: Walter Becker on 06-17-2023 INR Coag (Bld) [Relative time] 2.4 {INR} [facility] Comment on above: Critical Value > 4.0 Whole blood prothrombin time Ordered By: Walter Becker on 06-17-2023 PT Coag (Bld) [Time] 26.1 s 11.7-14.9 [facility] Laboratory - CoagulationOrde red By: Walter Becker on 06-10-2023 INR Coag (Bld) [Relative time] 1.4 {INR} [facility] Comment on above: Critical Value > 4.0 Whole blood prothrombin time Ordered By: Walter Becker on 06-10-2023 PT Coag (Bld) [Time] 15.9 s 11.7-14.9 [facility] Glucose Glucometer (dC) [M ass/Vol]Ordered By: Kee Merritt on 06-03-2023 Glucose [Mass/Vol] 130 mg/dL 74-106 [facility] Comment on above: MANAGEMENT OF PATIEN T CARE PER NURSING PROTOCOL Laboratory - CoagulationOrde red By: Walter Becker on 05-20-2023 INR Coag (Bld) [Relative time] 2.6 {INR} [facility] Comment on above: Critical Value > 4.0 No Panel InformationOrdered By: Walter Becker on 05-20-2023 2.6 [facility] Whole blood prothrombin time Ordered By: Walter Becker on 05-20-2023 PT Coag (Bld) [Time] 27.6 s 11.7-14.9 [facility] Basophil percentageOrdered B y: Walter Becker on 05-15-2023 Basophil percentage 0 SEEN /hpf 0-5 [facility] Basophil percentage 114 mg/dL 74-106 [facility] Basophil percentage 5.9 g/dL 6.4-8.2 [facility] Basophil percentage 0.40 mg/dL 0.20-1.00 [facility] Basophil percentage 140 mmol/L 136-145 [facility] Basophil percentage 4.1 mmol/L 3.5-5.1 [facility] Basophil percentage 105 mmol/L 98-107 [facility] Basophils (Bld) [#/Vol] 10.4 10*3/uL 4.4-11.0 [facility] Bilirubin [Mass/Vol] 0.40 mg/dL 0.20-1.00 [facility] Comment on above: For patients on eltr ombopag therapy, use of Dimension [place] TBIL is not recommended. Chloride [Moles/Vol] 105 mmol/L 98-107 [facility] Glucose [Mass/Vol] 114 mg/dL 74-106 [facility] Comment on above: Fasting Glucose resu lt from 100 to 125 mg/dL suggests IMPAIRED HOMEOSTASIS per A.D.A. criteria. Potassium [Moles/Vol] 4.1 mmol/L 3.5-5.1 [facility] Protein [Mass/Vol] 5.9 g/dL 6.4-8.2 [facility] Sodium [Moles/Vol] 140 mmol/L 136-145 [facility] WBC (Bld) [#/Vol] 10.4 10*3/uL 4.4-11.0 [facility] Bilirubin Test strip Ql (U)O rdered By: Walter Becker on 05-15-2023 Bilirubin Ql (U) Negative Negative [facility] Blood erythrocytes count (nu mber/volume)Ordered By: Walter Becker on 05-15-2023 RBC (Bld) [#/Vol] 4.37 10*6/uL 4.6-6.2 [facility] Blood hemoglobin measurement (mass/volume)Ordered By: Walter Bceker on 05-15-2023 Hemoglobin (Bld) [Mass/Vol] 11.6 g/dL 13.0-16. 5 [facility] Blood platelet mean volumeOr dered By: Walter Becker on 05-15-2023 Platelet mean volume (Bld) [Entitic vol] 9.4 fL 6.2-12.0 [facility] Culture, urineOrdered By: Horner on 05-15-2023 Bacteria identified Cx Nom (U) Culture exhibits no growth. [facility] Determination of erythrocyte mean corpuscular volume (MCV)Ordered By: Walter Becker on 05-15-2023 MCV (RBC) [Entitic vol] 84.7 fL 80-94 [facility] Hematocrit Auto (Bld) [Volum e fraction]Ordered By: Walter Becker on 05-15-2023 Hematocrit (Bld) [Volume fraction] 37.0 % 40-54 [facility] Ketones Test strip Ql (U)Ord ered By: Walter Becker on 05-15-2023 Ketones Ql (U) Negative Negative [facility] Laboratory - Chemistry and C hemistry - challengeOrdered By: Walter Becker on 05-15-2023 ALP [Catalytic activity/Vol] 97 U/L 45-117 [facility] ALT [Catalytic activity/Vol] 21 U/L 16-61 [facility] CO2 [Moles/Vol] 28.0 mmol/L 21.0-32.0 [facility] Globulin (S) [Mass/Vol] 3.0 g/dL 2.2-4.2 [facility] Urea nitrogen/Creatinine [Mass ratio] 30.7 mg/mg 10-20 [facility] Laboratory - Hematology and Cell countsOrdered By: Walter Becker on 05-15-2023 Erythrocyte distribution width (RBC) [Entitic vol] 43.3 fL 35.1-43.9 [facility] Erythrocyte distribution width (RBC) [Ratio] 14.1 % 11.6-14.6 [facility] MCH (RBC) [Entitic mass] 26.5 pg 27.0-32.0 [facility] MCHC Auto (RBC) [Mass/Vol]Or dered By: Walter Becker on 05-15-2023 MCHC (RBC) [Mass/Vol] 31.4 g/dL 32-36 [facility] Mucus LM Ql (Urine sed)Order ed By: Walter Becker on 05-15-2023 Mucus Ql (Urine sed) 0 SEEN /hpf [facility] Nitrite Test strip Ql (U)Ord ered By: Walter Becker on 05-15-2023 Nitrite Ql (U) Negative Negative [facility] No Panel InformationOrdered By: Walter Becker on 05-15-2023 Estimated GFR (MDRD) Amer 96 mL/min >60 [facility] Comment on above: GFR Calc Estimated GFR (MDRD) Non-Af Amer 79 mL/min >60 [facility] Comment on above: Non- GFR Calc 26.5 pg 27.0-32.0 [facility] 14.1 % 11.6-14.6 [facility] 43.3 fl 35.1-43.9 [facility] 79 mL/min >60 [facility] 96 mL/min >60 [facility] 30.7 RATIO 10-20 [facility] 3.0 g/dL 2.2-4.2 [facility] 97 U/L 45-117 [facility] 21 U/L 16-61 [facility] 28.0 mmol/L 21.0-32.0 [facility] Platelets bldOrdered By: Crystal Becker on 05-15-2023 Platelets (Bld) [#/Vol] 256 10*3/uL 150-450 [facility] Protein Test strip Ql (U)Ord ered By: Walter Becker on 05-15-2023 Protein Ql (U) Negative Negative [facility] Serum or plasma albumin antoine urement (mass/volume)Ordered By: Walter Becker on 05-15-2023 Albumin [Mass/Vol] 2.9 g/dL 3.2-5.0 [facility] Serum or plasma albumin/glob ulin mass ratioOrdered By: Walter Becker on 05-15-2023 Albumin/Globulin [Mass ratio] 1.0 {ratio} 0.9-2.4 [facility] Serum or plasma calcium antoine urement (mass/volume)Ordered By: Walter Becker on 05-15-2023 Calcium [Mass/Vol] 8.8 mg/dL 8.5-10.1 [facility] Serum or plasma creatinine m easurement (mass/volume)Ordered By: Walter Becker on 05-15-2023 Creatinine [Mass/Vol] 0.98 mg/dL 0.70-1.30 [facility] Comment on above: The validity of the calculated GFR & GFRAA in patients over 70 years has not been determined. Clinical correlation is essential. Serum or plasma urea nitroge n measurement (mass/volume)Ordered By: Walter Becker on 05-15-2023 Urea nitrogen [Mass/Vol] 30 mg/dL 7-18 [facility] Squamous epithelial cells de tection in urine sediment by light microscopyOrdered By: Walter Becker on 05-15-2023 Epithelial cells.squamous LM Ql (Urine sed) 0 SEEN /hpf 0-5 [facility] Thin prep Papanicolaou smear with manual screeningOrdered By: Walter Becker on 05-15-2023 Thin prep Papanicolaou smear with manual screening 9 U/L 15-37 [facility] Thin prep Papanicolaou smear with manual screening 7 5-15 [facility] Urine blood detectionOrdered By: Walter Becker on 05-15-2023 RBC Ql (U) Negative Negative [facility] RBC Ql (U) 0 SEEN /hpf 0-5 [facility] Urine clarityOrdered By: Crystal Becker on 05-15-2023 Clarity (U) Clear Clear [facility] Urine color determinationOrd ered By: Walter Becker on 05-15-2023 Color (U) Yellow Yellow [facility] Urine glucose detectionOrder ed By: Walter Becker on 05-15-2023 Glucose Ql (U) Normal mg/dl Normal [facility] Urine leukocyte esterase det ection by dipstickOrdered By: Walter Becker on 05-15-2023 Leukocyte esterase Test strip Ql (U) Negative Negative [facility] Urine pHOrdered By: Walter floyd on 05-15-2023 pH (U) 5.0 [pH] 5.0 - 8.0 [facility] Urine sediment bacteria coun t by microscopy (number/high power field)Ordered By: Walter Becker on 05-15-2023 Bacteria LM.HPF (Urine sed) [#/Area] 0 /[HPF] None Seen [facility] Urine specific gravity measu rementOrdered By: Walter Becker on 05-15-2023 Specific gravity (U) [Rel density] 1.010 1.002-1.03 0 [facility] Urobilinogen Auto test strip Ql (U)Ordered By: Walter Becker on 05-15-2023 Urobilinogen Ql (U) Normal mg/dl Normal [facility] Basophil percentageOrdered B y: Walter Becker on 05-06-2023 Basophil percentage 135 mg/dL 74-106 [facility] Basophil percentage 5.9 g/dL 6.4-8.2 [facility] Basophil percentage 0.40 mg/dL 0.20-1.00 [facility] Basophil percentage 140 mmol/L 136-145 [facility] Basophil percentage 3.7 mmol/L 3.5-5.1 [facility] Basophil percentage 106 mmol/L 98-107 [facility] Basophils (Bld) [#/Vol] 9.4 10*3/uL 4.4-11.0 [facility] Bilirubin [Mass/Vol] 0.40 mg/dL 0.20-1.00 [facility] Comment on above: For patients on eltr ombopag therapy, use of Dimension [place] TBIL is not recommended. Chloride [Moles/Vol] 106 mmol/L 98-107 [facility] Glucose [Mass/Vol] 135 mg/dL 74-106 [facility] Comment on above: Fasting Glucose resu lt greater than or equal to 126 mg/dL suggests DIABETES MELLITUS per A.D.A. criteria. Potassium [Moles/Vol] 3.7 mmol/L 3.5-5.1 [facility] Protein [Mass/Vol] 5.9 g/dL 6.4-8.2 [facility] Sodium [Moles/Vol] 140 mmol/L 136-145 [facility] WBC (Bld) [#/Vol] 9.4 10*3/uL 4.4-11.0 [facility] Blood erythrocytes count (nu mber/volume)Ordered By: Walter Becker on 05-06-2023 RBC (Bld) [#/Vol] 4.49 10*6/uL 4.6-6.2 [facility] Blood hemoglobin measurement (mass/volume)Ordered By: Walter Becker on 05-06-2023 Hemoglobin (Bld) [Mass/Vol] 12.0 g/dL 13.0-16. 5 [facility] Blood platelet mean volumeOr dered By: Walter Becker on 05-06-2023 Platelet mean volume (Bld) [Entitic vol] 9.5 fL 6.2-12.0 [facility] Determination of erythrocyte mean corpuscular volume (MCV)Ordered By: Walter Becker on 05-06-2023 MCV (RBC) [Entitic vol] 85.7 fL 80-94 [facility] Hematocrit Auto (Bld) [Volum e fraction]Ordered By: Walter Becker on 05-06-2023 Hematocrit (Bld) [Volume fraction] 38.5 % 40-54 [facility] INR in Blood by Coagulation assayOrdered By: Walter Becker on 05-06-2023 INR Coag (Bld) [Relative time] 2.5 {INR} [facility] Laboratory - Chemistry and C hemistry - challengeOrdered By: Walter Becker on 05-06-2023 ALP [Catalytic activity/Vol] 93 U/L 45-117 [facility] ALT [Catalytic activity/Vol] 23 U/L 16-61 [facility] CO2 [Moles/Vol] 29.0 mmol/L 21.0-32.0 [facility] Globulin (S) [Mass/Vol] 2.9 g/dL 2.2-4.[address] [facility] Urea nitrogen/Creatinine [Mass ratio] 25.8 mg/mg 10-20 [facility] Laboratory - CoagulationOrde red By: Walter Becker on 05-06-2023 PT Coag (PPP) [Time] 27.5 s 11.7-14.9 [facility] Laboratory - Hematology and Cell countsOrdered By: Walter Becker on 05-06-2023 Erythrocyte distribution width (RBC) [Entitic vol] 44.4 fL 35.1-43.9 [facility] Erythrocyte distribution width (RBC) [Ratio] 14.2 % 11.6-14.6 [facility] MCH (RBC) [Entitic mass] 26.7 pg 27.0-32.0 [facility] MCHC Auto (RBC) [Mass/Vol]Or dered By: Walter Becker on 05-06-2023 MCHC (RBC) [Mass/Vol] 31.2 g/dL 32-36 [facility] No Panel InformationOrdered By: Walter Becker on 05-06-2023 Estimated GFR (MDRD) Amer 102 mL/min >60 [facility] Comment on above: GFR Calc Estimated GFR (MDRD) Non-Af Amer 84 mL/min >60 [facility] Comment on above: Non- GFR Calc 26.7 pg 27.0-32.0 [facility] 14.2 % 11.6-14.6 [facility] 44.4 fl 35.1-43.9 [facility] 27.5 SECONDS 11.7-14.9 [facility] 84 mL/min >60 [facility] 102 mL/min >60 [facility] 25.8 RATIO 10-20 [facility] 2.9 g/dL 2.2-4.2 [facility] 93 U/L 45-117 [facility] 23 U/L 16-61 [facility] 29.0 mmol/L 21.0-32.0 [facility] Platelets bldOrdered By: Crystal Becker on 05-06-2023 Platelets (Bld) [#/Vol] 238 10*3/uL 150-450 [facility] Serum or plasma albumin antoine urement (mass/volume)Ordered By: Walter Becker on 05-06-2023 Albumin [Mass/Vol] 3.0 g/dL 3.2-5.0 [facility] Serum or plasma albumin/glob ulin mass ratioOrdered By: Walter Becker on 05-06-2023 Albumin/Globulin [Mass ratio] 1.0 {ratio} 0.9-2.4 [facility] Serum or plasma calcium antoine urement (mass/volume)Ordered By: Walter Becker on 05-06-2023 Calcium [Mass/Vol] 9.1 mg/dL 8.5-10.1 [facility] Serum or plasma creatinine m easurement (mass/volume)Ordered By: Walter Becker on 05-06-2023 Creatinine [Mass/Vol] 0.93 mg/dL 0.70-1.30 [facility] Comment on above: The validity of the calculated GFR & GFRAA in patients over 70 years has not been determined. Clinical correlation is essential. Serum or plasma urea nitroge n measurement (mass/volume)Ordered By: Walter Becker on 05-06-2023 Urea nitrogen [Mass/Vol] 24 mg/dL 7-18 [facility] Thin prep Papanicolaou smear with manual screeningOrdered By: Walter Becker on 05-06-2023 Thin prep Papanicolaou smear with manual screening 10 U/L 15-37 [facility] Thin prep Papanicolaou smear with manual screening 5 5-15 [facility] Laboratory - CoagulationOrde red By: Walter Becker on 04-29-2023 INR Coag (Bld) [Relative time] 2.8 {INR} [facility] Comment on above: Critical Value > 4.0 No Panel InformationOrdered By: Walter Becker on 04-29-2023 2.8 [facility] Whole blood prothrombin time Ordered By: Walter Becker on 04-29-2023 PT Coag (Bld) [Time] 29.6 s 11.7-14.9 [facility] Laboratory - CoagulationOrde red By: Walter Becker on 04-15-2023 INR Coag (Bld) [Relative time] 2.5 {INR} [facility] Comment on above: Critical Value > 4.0 No Panel InformationOrdered By: Walter Becker on 04-15-2023 2.5 [facility] Whole blood prothrombin time Ordered By: Walter Becker on 04-15-2023 PT Coag (Bld) [Time] 27.3 s 11.7-14.9 [facility] Basophil percentageOrdered B y: Walter Becker on 04-09-2023 Basophil percentage 115 mg/dL 74-106 [facility] Basophil percentage 5.8 g/dL 6.4-8.2 [facility] Basophil percentage 0.40 mg/dL 0.20-1.00 [facility] Basophil percentage 141 mmol/L 136-145 [facility] Basophil percentage 3.9 mmol/L 3.5-5.1 [facility] Basophil percentage 106 mmol/L 98-107 [facility] Basophils (Bld) [#/Vol] 10.2 10*3/uL 4.4-11.0 [facility] Bilirubin [Mass/Vol] 0.40 mg/dL 0.20-1.00 [facility] Comment on above: For patients on eltr ombopag therapy, use of Dimension [place] TBIL is not recommended. Chloride [Moles/Vol] 106 mmol/L 98-107 [facility] Glucose [Mass/Vol] 115 mg/dL 74-106 [facility] Comment on above: Fasting Glucose resu lt from 100 to 125 mg/dL suggests IMPAIRED HOMEOSTASIS per A.D.A. criteria. Potassium [Moles/Vol] 3.9 mmol/L 3.5-5.1 [facility] Protein [Mass/Vol] 5.8 g/dL 6.4-8.2 [facility] Sodium [Moles/Vol] 141 mmol/L 136-145 [facility] WBC (Bld) [#/Vol] 10.2 10*3/uL 4.4-11.0 [facility] Blood erythrocytes count (nu mber/volume)Ordered By: Walter Becker on 04-09-2023 RBC (Bld) [#/Vol] 4.16 10*6/uL 4.6-6.2 [facility] Blood hemoglobin measurement (mass/volume)Ordered By: Walter Becker on 04-09-2023 Hemoglobin (Bld) [Mass/Vol] 11.3 g/dL 13.0-16. 5 [facility] Blood platelet mean volumeOr dered By: Walter Becker on 04-09-2023 Platelet mean volume (Bld) [Entitic vol] 9.4 fL 6.2-12.0 [facility] Determination of erythrocyte mean corpuscular volume (MCV)Ordered By: Walter Becker on 04-09-2023 MCV (RBC) [Entitic vol] 86.5 fL 80-94 [facility] Hematocrit Auto (Bld) [Volum e fraction]Ordered By: Walter Becker on 04-09-2023 Hematocrit (Bld) [Volume fraction] 36.0 % 40-54 [facility] Laboratory - Chemistry and C hemistry - challengeOrdered By: Walter Becker on 04-09-2023 ALP [Catalytic activity/Vol] 105 U/L 45-117 [facility] ALT [Catalytic activity/Vol] 22 U/L 16-61 [facility] CO2 [Moles/Vol] 31.0 mmol/L 21.0-32.0 [facility] Globulin (S) [Mass/Vol] 2.9 g/dL 2.2-4.2 [facility] Urea nitrogen/Creatinine [Mass ratio] 29.9 mg/mg 10-20 [facility] Laboratory - Hematology and Cell countsOrdered By: Walter Becker on 04-09-2023 Erythrocyte distribution width (RBC) [Entitic vol] 46.8 fL 35.1-43.9 [facility] Erythrocyte distribution width (RBC) [Ratio] 14.6 % 11.6-14.6 [facility] MCH (RBC) [Entitic mass] 27.2 pg 27.0-32.0 [facility] MCHC Auto (RBC) [Mass/Vol]Or dered By: Walter Becker on 04-09-2023 MCHC (RBC) [Mass/Vol] 31.4 g/dL 32-36 [facility] No Panel InformationOrdered By: Walter Becker on 04-09-2023 Estimated GFR (MDRD) Amer 101 mL/min >60 [facility] Comment on above: GFR Calc Estimated GFR (MDRD) Non-Af Amer 84 mL/min >60 [facility] Comment on above: Non- GFR Calc 27.2 pg 27.0-32.0 [facility] 14.6 % 11.6-14.6 [facility] 46.8 fl 35.1-43.9 [facility] 84 mL/min >60 [facility] 101 mL/min >60 [facility] 29.9 RATIO 10-20 [facility] 2.9 g/dL 2.2-4.2 [facility] 105 U/L 45-117 [facility] 22 U/L 16-61 [facility] 31.0 mmol/L 21.0-32.0 [facility] Platelets bldOrdered By: Crystal Becker on 04-09-2023 Platelets (Bld) [#/Vol] 229 10*3/uL 150-450 [facility] Serum or plasma albumin antoine urement (mass/volume)Ordered By: Walter Becker on 04-09-2023 Albumin [Mass/Vol] 2.9 g/dL 3.2-5.0 [facility] Serum or plasma albumin/glob ulin mass ratioOrdered By: Walter Becker on 04-09-2023 Albumin/Globulin [Mass ratio] 1.0 {ratio} 0.9-2.4 [facility] Serum or plasma calcium antoine urement (mass/volume)Ordered By: Walter Becker on 04-09-2023 Calcium [Mass/Vol] 9.0 mg/dL 8.5-10.1 [facility] Serum or plasma creatinine m easurement (mass/volume)Ordered By: Walter Becker on 04-09-2023 Creatinine [Mass/Vol] 0.94 mg/dL 0.70-1.30 [facility] Comment on above: The validity of the calculated GFR & GFRAA in patients over 70 years has not been determined. Clinical correlation is essential. Serum or plasma urea nitroge n measurement (mass/volume)Ordered By: Walter Becker on 04-09-2023 Urea nitrogen [Mass/Vol] 28 mg/dL 7-18 [facility] Thin prep Papanicolaou smear with manual screeningOrdered By: Walter Becker on 04-09-2023 Thin prep Papanicolaou smear with manual screening 7 U/L 15-37 [facility] Thin prep Papanicolaou smear with manual screening 4 5-15 [facility] Laboratory - CoagulationOrde red By: Walter Becker on 04-08-2023 INR Coag (Bld) [Relative time] 2.4 {INR} [facility] Comment on above: Critical Value > 4.0 No Panel InformationOrdered By: Walter Becker on 04-08-2023 2.4 [facility] Whole blood prothrombin time Ordered By: Walter Becker on 04-08-2023 PT Coag (Bld) [Time] 25.9 s 11.7-14.9 [facility] Laboratory - CoagulationOrde red By: Walter Becker on 04-01-2023 INR Coag (Bld) [Relative time] 1.9 {INR} [facility] Comment on above: Critical Value > 4.0 No Panel InformationOrdered By: Walter Becker on 04-01-2023 1.9 [facility] Whole blood prothrombin time Ordered By: Walter Becker on 04-01-2023 PT Coag (Bld) [Time] 21.0 s 11.7-14.9 [facility] - CoagulationOrde red By: Walter Becker on 03-25-2023 INR Coag (Bld) [Relative time] 1.9 {INR} [facility] Comment on above: Critical Value > 4.0 No Panel InformationOrdered By: Walter Becker on 03-25-2023 1.9 [facility] Whole blood prothrombin time Ordered By: Walter Becker on 03-25-2023 PT Coag (Bld) [Time] 21.1 s 11.7-14.9 [facility] INR in Blood by Coagulation assayOrdered By: Walter Becker on 03-11-2023 INR Coag (Bld) [Relative time] 2.4 {INR} [facility] - CoagulationOrde red By: Walter Becker on 03-11-2023 PT Coag (PPP) [Time] 26.6 s 11.7-14.9 [facility] No Panel InformationOrdered By: Walter Becker on 03-11-2023 26.6 SECONDS 11.7-14.9 [facility] Whole blood hemoglobin A1c/t otal hemoglobin ratio (mass fraction)Ordered By: Walter Becker on 03-11-2023 HbA1c (Bld) [Mass fraction] 5.5 % 3.8-5.6 [facility] Comment on above: Normal < 5.7 % Predi abetic 5.7 - 6.4 % Diabetic >or= 6.5 % Please note range changes. Basophil percentageOrdered B y: Walter Becker on 03-04-2023 Basophil percentage 114 mg/dL 74-106 [facility] Basophil percentage 5.8 g/dL 6.4-8.2 [facility] Basophil percentage 0.30 mg/dL 0.20-1.00 [facility] Basophil percentage 139 mmol/L 136-145 [facility] Basophil percentage 4.0 mmol/L 3.5-5.1 [facility] Basophil percentage 106 mmol/L 98-107 [facility] Bilirubin [Mass/Vol] 0.30 mg/dL 0.20-1.00 [facility] Comment on above: For patients on eltr ombopag therapy, use of Dimension [place] TBIL is not recommended. Chloride [Moles/Vol] 106 mmol/L 98-107 [facility] Glucose [Mass/Vol] 114 mg/dL 74-106 [facility] Comment on above: Fasting Glucose resu lt from 100 to 125 mg/dL suggests IMPAIRED HOMEOSTASIS per A.D.A. criteria. Potassium [Moles/Vol] 4.0 mmol/L 3.5-5.1 [facility] Protein [Mass/Vol] 5.8 g/dL 6.4-8.2 [facility] Sodium [Moles/Vol] 139 mmol/L 136-145 [facility] Blood hemoglobin measurement (mass/volume)Ordered By: Walter Becker on 03-04-2023 Hemoglobin (Bld) [Mass/Vol] 10.6 g/dL 13.0-16. 5 [facility] Hematocrit Auto (Bld) [Volum e fraction]Ordered By: Walter Becker on 03-04-2023 Hematocrit (Bld) [Volume fraction] 35.7 % 40-54 [facility] INR in Blood by Coagulation assayOrdered By: Walter Becker on 03-04-2023 INR Coag (Bld) [Relative time] 2.3 {INR} [facility] Laboratory - Chemistry and C hemistry - challengeOrdered By: Walter Becker on 03-04-2023 ALP [Catalytic activity/Vol] 92 U/L 45-117 [facility] ALT [Catalytic activity/Vol] 25 U/L - [facility] CO2 [Moles/Vol] 28.0 mmol/L 21.0-32.0 [facility] Globulin (S) [Mass/Vol] 3.0 g/dL 2.2-4.[address] [facility] Urea nitrogen/Creatinine [Mass ratio] 33.0 mg/mg 10- [facility] Laboratory - CoagulationOrde red By: Walter Becker on 03-04-2023 PT Coag (PPP) [Time] 25.8 s 11.7-14.9 [facility] No Panel InformationOrdered By: Walter Becker on 03-04-2023 Estimated GFR (MDRD) Amer 88 mL/min >60 [facility] Comment on above: GFR Calc Estimated GFR (MDRD) Non-Af Amer 72 mL/min >60 [facility] Comment on above: Non- GFR Calc 25.8 SECONDS 11.7-14.9 [facility] 72 mL/min >60 [facility] 88 mL/min >60 [facility] 33.0 RATIO 05-03 [facility] 3.0 g/dL 2.2-4.2 [facility] 92 U/L - [facility] 25 U/L [facility] 28.0 mmol/L 21.0-32.0 [facility] Serum or plasma albumin antoine urement (mass/volume)Ordered By: Walter Becker on 03-04-2023 Albumin [Mass/Vol] 2.8 g/dL 3.2-5.0 [facility] Serum or plasma albumin/glob ulin mass ratioOrdered By: Walter Becker on 03-04-2023 Albumin/Globulin [Mass ratio] 0.9 {ratio} 0.9-2.4 [facility] Serum or plasma calcium antoine urement (mass/volume)Ordered By: Walter Becker on 03-04-2023 Calcium [Mass/Vol] 9.1 mg/dL 8.5-10.1 [facility] Serum or plasma creatinine m easurement (mass/volume)Ordered By: Walter Becker on 03-04-2023 Creatinine [Mass/Vol] 1.06 mg/dL 0.70-1.30 [facility] Comment on above: The validity of the calculated GFR & GFRAA in patients over 70 years has not been determined. Clinical correlation is essential. Serum or plasma urea nitroge n measurement (mass/volume)Ordered By: Walter eBcker on 03-04-2023 Urea nitrogen [Mass/Vol] 35 mg/dL 7-18 [facility] Thin prep Papanicolaou smear with manual screeningOrdered By: Walter Becker on 03-04-2023 Thin prep Papanicolaou smear with manual screening 12 U/L 15-37 [facility] Thin prep Papanicolaou smear with manual screening 5 5-15 [facility] - CoagulationOrde red By: Walter Becker on 03-01-2023 INR Coag (Bld) [Relative time] 2.2 {INR} [facility] Comment on above: Critical Value > 4.0 No Panel InformationOrdered By: Walter Becker on 03-01-2023 2.2 [facility] Whole blood prothrombin time Ordered By: Walter Becker on 03-01-2023 PT Coag (Bld) [Time] 24.4 s 11.7-14.9 [facility] Blood hemoglobin measurement (mass/volume)Ordered By: Walter Becker on 02-25-2023 Hemoglobin (Bld) [Mass/Vol] 11.0 g/dL 13.0-16. 5 [facility] Hematocrit Auto (Bld) [Volum e fraction]Ordered By: Walter Becker on 02-25-2023 Hematocrit (Bld) [Volume fraction] 36.8 % 40-54 [facility] INR in Blood by Coagulation assayOrdered By: Walter Becker on 02-25-2023 INR Coag (Bld) [Relative time] 2.6 {INR} [facility] - CoagulationOrde red By: Walter Becker on 02-25-2023 PT Coag (PPP) [Time] 28.0 s 11.7-14.9 [facility] No Panel InformationOrdered By: Walter Becker on 02-25-2023 28.0 SECONDS 11.7-14.9 [facility] - CoagulationOrde red By: Walter Becker on 02-22-2023 INR Coag (Bld) [Relative time] 2.6 {INR} [facility] Comment on above: Critical Value > 4.0 No Panel InformationOrdered By: Walter Becker on 02-22-2023 2.6 [facility] Whole blood prothrombin time Ordered By: Walter Becker on 02-22-2023 PT Coag (Bld) [Time] 28.4 s 11.7-14.9 [facility] No Panel InformationOrdered By: Walter Becker on 02-20-2023 2.9 [facility] Whole blood prothrombin time Ordered By: Walter Becker on 02-20-2023 PT Coag (Bld) [Time] 30.7 s 11.7-14.9 [facility] Blood hemoglobin measurement (mass/volume)Ordered By: Walter Becker on 02-18-2023 Hemoglobin (Bld) [Mass/Vol] 8.8 g/dL 13.0-16. 5 [facility] Hematocrit Auto (Bld) [Volum e fraction]Ordered By: Walter Becker on 02-18-2023 Hematocrit (Bld) [Volume fraction] 28.2 % 40-54 [facility] INR in Blood by Coagulation assayOrdered By: Walter Becker on 02-18-2023 INR Coag (Bld) [Relative time] 2.8 {INR} [facility] No Panel InformationOrdered By: Walter Becker on 02-18-2023 29.5 SECONDS 11.7-14.9 [facility] No Panel InformationOrdered By: Walter Becker on 02-14-2023 2.2 [facility] Whole blood prothrombin time Ordered By: Walter Becker on 02-14-2023 PT Coag (Bld) [Time] 24.3 s 11.7-14.9 [facility] Absolute lymphocyte countOrd ered By: Gabriel Giraldo on 02-13-2023 Lymphocytes Auto (Unsp spec) [#/Vol] 0.84 10*3/uL 0.83-4.51 [facility] Basophil percentageOrdered B y: Gabriel Giraldo on 02-13-2023 Basophils (Bld) [#/Vol] 5.4 10*3/uL 4.4-11.0 [facility] Basophils (Bld) [#/Vol] 3.6 10*3/uL 2.0-7.7 [facility] Basophils/100 WBC (Bld) 67.5 % 47-70 [facility] Basophils/100 WBC (Bld) 4.1 % 0-5 [facility] Basophils/100 WBC (Bld) 0.4 % 0-1 [facility] Blood erythrocytes count (nu mber/volume)Ordered By: Gabriel Giraldo on 02-13-2023 RBC (Bld) [#/Vol] 2.76 10*6/uL 4.6-6.2 [facility] Blood hemoglobin measurement (mass/volume)Ordered By: Gabriel Giraldo on 02-13-2023 Hemoglobin (Bld) [Mass/Vol] 7.5 g/dL 13.0-16. 5 [facility] Blood lymphocytes/100 leukoc ytesOrdered By: Gabriel Giraldo on 02-13-2023 Lymphocytes/100 WBC (Bld) 15.7 % 19-41 [facility] Blood monocytes/100 leukocyt esOrdered By: Gabriel Giraldo on 02-13-2023 Monocytes/100 WBC (Bld) 11.2 % 0-10 [facility] Blood platelet mean volumeOr dered By: Gabriel Giraldo on 02-13-2023 Platelet mean volume (Bld) [Entitic vol] 9.2 fL 6.2-12.0 [facility] COVID-19 virus antigen assay Ordered By: Gabriel Giraldo on 02-13-2023 SARS-CoV-2 (COVID-19) Ag IA.rapid Ql (Resp) [facility] SARS-CoV-2 (COVID-19) Ag IA.rapid Ql (Resp) [facility] Determination of erythrocyte mean corpuscular volume (MCV)Ordered By: Gabriel Giraldo on 02-13-2023 MCV (RBC) [Entitic vol] 88.4 fL 80-94 [facility] Glucose Glucometer (BldC) [M ass/Vol]Ordered By: Gabriel Giraldo on 02-13-2023 Glucose [Mass/Vol] 146 mg/dL 74-106 [facility] Hematocrit Auto (Bld) [Volum e fraction]Ordered By: Gabriel Giraldo on 02-13-2023 Hematocrit (Bld) [Volume fraction] 24.4 % 40-54 [facility] MCHC Auto (RBC) [Mass/Vol]Or dered By: Gabriel Giraldo on 02-13-2023 MCHC (RBC) [Mass/Vol] 30.7 g/dL 32-36 [facility] No Panel InformationOrdered By: Gabriel Giraldo on 02-13-2023 27.2 pg 27.0-32.0 [facility] 16.6 % 11.6-14.6 [facility] 54.5 fl 35.1-43.9 [facility] 1.100 % 0.0-0.9 [facility] 0.9 % 0-5 [facility] Platelets bldOrdered By: Elis Giraldo on 02-13-2023 Platelets (Bld) [#/Vol] 194 10*3/uL 150-450 [facility] INR in Blood by Coagulation assayOrdered By: Gabriel Giraldo on 02-12-2023 INR Coag (Bld) [Relative time] 1.6 {INR} [facility] No Panel InformationOrdered By: Smith Leija on 02-12-2023 No growth in 5 days. [facility] No growth in 5 days. [facility] No Panel InformationOrdered By: Gabriel Giraldo on 02-12-2023 19.3 SECONDS 11.7-14.9 [facility] Basophil percentageOrdered B y: Dandy Sauer on 02-11-2023 Basophil percentage 2.2 mmol/L 0.4-2.0 [facility] Basophil percentage 2.8 mmol/L 0.4-2.0 [facility] Basophil percentageOrdered B y: Walter Becker on 02-11-2023 Basophil percentage 168 mg/dL 74-106 [facility] Basophil percentage 135 mmol/L 136-145 [facility] Basophil percentage 3.7 mmol/L 3.5-5.1 [facility] Basophil percentage 103 mmol/L 98-107 [facility] Basophils (Bld) [#/Vol] 10.2 10*3/uL 4.4-11.0 [facility] Blood erythrocytes count (nu mber/volume)Ordered By: Walter Becker on 02-11-2023 RBC (Bld) [#/Vol] 3.16 10*6/uL 4.6-6.2 [facility] Blood hemoglobin measurement (mass/volume)Ordered By: Walter Becker on 02-11-2023 Hemoglobin (Bld) [Mass/Vol] 8.7 g/dL 13.0-16. 5 [facility] Blood platelet mean volumeOr dered By: Walter Becker on 02-11-2023 Platelet mean volume (Bld) [Entitic vol] 9.3 fL 6.2-12.0 [facility] Determination of erythrocyte mean corpuscular volume (MCV)Ordered By: Walter Becker on 02-11-2023 MCV (RBC) [Entitic vol] 87.0 fL 80-94 [facility] Hematocrit Auto (Bld) [Volum e fraction]Ordered By: Walter Becker on 02-11-2023 Hematocrit (Bld) [Volume fraction] 27.5 % 40-54 [facility] INR in Blood by Coagulation assayOrdered By: Walter Becker on 02-11-2023 INR Coag (Bld) [Relative time] 1.5 {INR} [facility] MCHC Auto (RBC) [Mass/Vol]Or dered By: Walter Becker on 02-11-2023 MCHC (RBC) [Mass/Vol] 31.6 g/dL 32-36 [facility] No Panel InformationOrdered By: Walter Becker on 02-11-2023 27.5 pg 27.0-32.0 [facility] 17.3 % 11.6-14.6 [facility] 55.7 fl 35.1-43.9 [facility] 18.2 SECONDS 11.7-14.9 [facility] 67 mL/min >60 [facility] 81 mL/min >60 [facility] 21.1 RATIO 10-20 [facility] 27.0 mmol/L 21.0-32.0 [facility] Platelets bldOrdered By: Crystal Becker on 02-11-2023 Platelets (Bld) [#/Vol] 200 10*3/uL 150-450 [facility] Serum or plasma calcium antoine urement (mass/volume)Ordered By: Walter Becker on 02-11-2023 Calcium [Mass/Vol] 8.7 mg/dL 8.5-10.1 [facility] Serum or plasma creatinine m easurement (mass/volume)Ordered By: Walter Becker on 02-11-2023 Creatinine [Mass/Vol] 1.14 mg/dL 0.70-1.30 [facility] Serum or plasma urea nitroge n measurement (mass/volume)Ordered By: Walter Becker on 02-11-2023 Urea nitrogen [Mass/Vol] 24 mg/dL 7-18 [facility] Thin prep Papanicolaou smear with manual screeningOrdered By: Walter Becker on 02-11-2023 Thin prep Papanicolaou smear with manual screening 5 5-15 [facility] Absolute lymphocyte countOrd ered By: Geremias Carey on 02-10-2023 Lymphocytes Auto (Unsp spec) [#/Vol] 0.46 10*3/uL 0.83-4.51 [facility] Bacteria identified Cx Nom ( U)Ordered By: Geremias Carey on 02-10-2023 Culture, urine Klebsiella pneumonia e sp pneum [facility] Culture, urine Klebsiella pneumonia e sp pneum [facility] Basophil percentageOrdered B y: Geremias Carey on 02-10-2023 Basophil percentage 1.9 mmol/L 0.4-2.0 [facility] Basophil percentage 25-50 SEEN /hpf 0-5 [facility] Basophil percentage 158 mg/dL 74-106 [facility] Basophil percentage 5.6 g/dL 6.4-8.2 [facility] Basophil percentage 0.90 mg/dL 0.20-1.00 [facility] Basophil percentage 136 mmol/L 136-145 [facility] Basophil percentage 3.7 mmol/L 3.5-5.1 [facility] Basophil percentage 103 mmol/L 98-107 [facility] Basophils (Bld) [#/Vol] 10.8 10*3/uL 4.4-11.0 [facility] Basophils (Bld) [#/Vol] 9.2 10*3/uL 2.0-7.7 [facility] Basophils/100 WBC (Bld) 84.8 % 47-70 [facility] Basophils/100 WBC (Bld) 0.2 % 0-5 [facility] Basophils/100 WBC (Bld) 0.1 % 0-1 [facility] Bilirubin Test strip Ql (U)O rdered By: Geremias Carey on 02-10-2023 Bilirubin Ql (U) Negative Negative [facility] Blood erythrocytes count (nu mber/volume)Ordered By: Geremias Carey on 02-10-2023 RBC (Bld) [#/Vol] 3.20 10*6/uL 4.6-6.2 [facility] Blood hemoglobin measurement (mass/volume)Ordered By: Geremias Carey on 02-10-2023 Hemoglobin (Bld) [Mass/Vol] 8.8 g/dL 13.0-16. 5 [facility] Blood lymphocytes/100 leukoc ytesOrdered By: Geremias Carey on 02-10-2023 Lymphocytes/100 WBC (Bld) 4.3 % 19-41 [facility] Blood manual differential co mment interpretation (narrative result)Ordered By: Geremias Carey on 02-10-2023 Manual differential comment Ori (Bld) [Interp] SCANNED [facility] Blood monocytes/100 leukocyt esOrdered By: Geremias Carey on 02-10-2023 Monocytes/100 WBC (Bld) 9.8 % 0-10 [facility] Blood platelet mean volumeOr dered By: Geremias Carey on 02-10-2023 Platelet mean volume (Bld) [Entitic vol] 9.3 fL 6.2-12.0 [facility] Determination of erythrocyte mean corpuscular volume (MCV)Ordered By: Geremias Carey on 02-10-2023 MCV (RBC) [Entitic vol] 87.8 fL 80-94 [facility] Direct bilirubinOrdered By: Geremias Carey on 02-10-2023 Bilirubin.direct [Mass/Vol] 0.43 mg/dL 0.00-0.3 0 [facility] Hematocrit Auto (Bld) [Volum e fraction]Ordered By: Geremias Carey on 02-10-2023 Hematocrit (Bld) [Volume fraction] 28.1 % 40-54 [facility] INR in Blood by Coagulation assayOrdered By: Geremias Carey on 02-10-2023 INR Coag (Bld) [Relative time] 1.4 {INR} [facility] Influenza virus A and B and SARS-CoV-2 (COVID-19) Ag panel - Upper respiratory specimOrdered By: Geremias Carey on 02-10-2023 SARS-CoV-2 (COVID-19) RNA ANGELY+probe Ql (Resp) [facility] SARS-CoV-2 (COVID-19) RNA ANGELY+probe Ql (Resp) [facility] Ketones Test strip Ql (U)Ord ered By: Geremias Carey on 02-10-2023 Ketones Ql (U) 5 mg/dl Negative [facility] MCHC Auto (RBC) [Mass/Vol]Or dered By: Geremias Carey on 02-10-2023 MCHC (RBC) [Mass/Vol] 31.3 g/dL 32-36 [facility] Mucus LM Ql (Urine sed)Order ed By: Geremias Carey on 02-10-2023 Mucus Ql (Urine sed) 0 SEEN /hpf [facility] Nitrite Test strip Ql (U)Ord ered By: Geremias Carey on 02-10-2023 Nitrite Ql (U) Negative Negative [facility] No Panel InformationOrdered By: Geremias Carey on 02-10-2023 GNR lactose manager of disaster recovery [facility] GNR lactose manager of disaster recovery [facility] 27.5 pg 27.0-32.0 [facility] 17.3 % 11.6-14.6 [facility] 55.2 fl 35.1-43.9 [facility] 0.800 % 0.0-0.9 [facility] 0 % 0-5 [facility] 17.5 SECONDS 11.7-14.9 [facility] 42.1 Seconds 24.1-36.2 [facility] 70 mL/min >60 [facility] 85 mL/min >60 [facility] 66.18 ml/min [facility] 23.9 RATIO 10-20 [facility] 3.3 g/dL 2.2-4.2 [facility] 100 U/L 45-117 [facility] 18 U/L 16-61 [facility] 24.0 mmol/L 21.0-32.0 [facility] Platelets bldOrdered By: Luis Enrique Carey on 02-10-2023 Platelets (Bld) [#/Vol] 189 10*3/uL 150-450 [facility] Protein Test strip Ql (U)Ord ered By: Geremias Carey on 02-10-2023 Protein Ql (U) 100 mg/dl Negative [facility] Serum or plasma albumin antoine urement (mass/volume)Ordered By: Geremias Carey on 02-10-2023 Albumin [Mass/Vol] 2.3 g/dL 3.2-5.0 [facility] Serum or plasma calcium antoine urement (mass/volume)Ordered By: Geremias Carey on 02-10-2023 Calcium [Mass/Vol] 8.3 mg/dL 8.5-10.1 [facility] Serum or plasma creatinine m easurement (mass/volume)Ordered By: Geremias Carey on 02-10-2023 Creatinine [Mass/Vol] 1.09 mg/dL 0.70-1.30 [facility] Serum or plasma urea nitroge n measurement (mass/volume)Ordered By: Geremias Carey on 02-10-2023 Urea nitrogen [Mass/Vol] 26 mg/dL 7-18 [facility] Serum procalcitonin measurem entOrdered By: Geremias Carey on 02-10-2023 Procalcitonin [Mass/Vol] 1.43 ng/mL 0.00-0.09 [facility] Squamous epithelial cells de tection in urine sediment by light microscopyOrdered By: Geremias Carey on 02-10-2023 Epithelial cells.squamous LM Ql (Urine sed) 0 SEEN /hpf 0-5 [facility] Thin prep Papanicolaou smear with manual screeningOrdered By: Geremias Carey on 02-10-2023 Thin prep Papanicolaou smear with manual screening 10 U/L 15-37 [facility] Thin prep Papanicolaou smear with manual screening 9 5-15 [facility] Urine blood detectionOrdered By: Geremias Carey on 02-10-2023 RBC Ql (U) 250 /ul Negative [facility] RBC Ql (U) 25-50 SEEN /hpf 0-5 [facility] Urine clarityOrdered By: Luis Enrique Carey on 02-10-2023 Clarity (U) Sl. Cloudy Clear [facility] Urine color determinationOrd ered By: Geremias Carey on 02-10-2023 Color (U) Yellow Yellow [facility] Urine glucose detectionOrder ed By: Geremias Carey on 02-10-2023 Glucose Ql (U) Normal mg/dl Normal [facility] Urine leukocyte esterase det ection by dipstickOrdered By: Geremias Carey on 02-10-2023 Leukocyte esterase Test strip Ql (U) 500 /ul Negative [facility] Urine pHOrdered By: Geremias torrez on 02-10-2023 pH (U) 5.0 [pH] 5.0 - 8.0 [facility] Urine sediment bacteria coun t by microscopy (number/high power field)Ordered By: Geremias Carey on 02-10-2023 Bacteria LM.HPF (Urine sed) [#/Area] 4 /[HPF] None Seen [facility] Urine specific gravity measu rementOrdered By: Geremias Carey on 02-10-2023 Specific gravity (U) [Rel density] 1.015 1.002-1.03 0 [facility] Urobilinogen Auto test strip Ql (U)Ordered By: Geremias Carey on 02-10-2023 Urobilinogen Ql (U) Normal mg/dl Normal [facility] Blood hemoglobin measurement (mass/volume)Ordered By: Walter Becker on 02-07-2023 Hemoglobin (Bld) [Mass/Vol] 8.8 g/dL 13.0-16. 5 [facility] Hematocrit Auto (Bld) [Volum e fraction]Ordered By: Walter Becker on 02-07-2023 Hematocrit (Bld) [Volume fraction] 29.0 % 40-54 [facility] COVID-19 virus antigen assay Ordered By: Caryl Mcdermott on 02-05-2023 SARS-CoV-2 (COVID-19) Ag IA.rapid Ql (Resp) [facility] SARS-CoV-2 (COVID-19) Ag IA.rapid Ql (Resp) [facility] Glucose Glucometer (BldC) [M ass/Vol]Ordered By: Caryl Mcdermott on 02-05-2023 Glucose [Mass/Vol] 163 mg/dL 74-106 [facility] Absolute lymphocyte countOrd ered By: Yisel Rendon on 02-04-2023 Lymphocytes Auto (Unsp spec) [#/Vol] 1.39 10*3/uL 0.83-4.51 [facility] Basophil percentageOrdered B y: Yisel Rendon on 02-04-2023 Basophil percentage 151 mg/dL 74-106 [facility] Basophil percentage 141 mmol/L 136-145 [facility] Basophil percentage 3.5 mmol/L 3.5-5.1 [facility] Basophil percentage 110 mmol/L 98-107 [facility] Basophils (Bld) [#/Vol] 8.1 10*3/uL 4.4-11.0 [facility] Basophils (Bld) [#/Vol] 5.8 10*3/uL 2.0-7.7 [facility] Basophils/100 WBC (Bld) 71.5 % 47-70 [facility] Basophils/100 WBC (Bld) 2.6 % 0-5 [facility] Basophils/100 WBC (Bld) 0.1 % 0-1 [facility] Blood erythrocytes count (nu mber/volume)Ordered By: Yisel Rendon on 02-04-2023 RBC (Bld) [#/Vol] 3.23 10*6/uL 4.6-6.2 [facility] Blood hemoglobin measurement (mass/volume)Ordered By: Yisel Rendon on 02-04-2023 Hemoglobin (Bld) [Mass/Vol] 8.8 g/dL 13.0-16. 5 [facility] Blood lymphocytes/100 leukoc ytesOrdered By: Yisel Rendon on 02-04-2023 Lymphocytes/100 WBC (Bld) 17.2 % 19-41 [facility] Blood monocytes/100 leukocyt esOrdered By: Yisel Rendon on 02-04-2023 Monocytes/100 WBC (Bld) 6.3 % 0-10 [facility] Blood platelet mean volumeOr dered By: Yisel Rendon on 02-04-2023 Platelet mean volume (Bld) [Entitic vol] 8.8 fL 6.2-12.0 [facility] Determination of erythrocyte mean corpuscular volume (MCV)Ordered By: Yisel Rendon on 02-04-2023 MCV (RBC) [Entitic vol] 89.5 fL 80-94 [facility] Hematocrit Auto (Bld) [Volum e fraction]Ordered By: Yisel Rendon on 02-04-2023 Hematocrit (Bld) [Volume fraction] 28.9 % 40-54 [facility] MCHC Auto (RBC) [Mass/Vol]Or dered By: Yisel Rendon on 02-04-2023 MCHC (RBC) [Mass/Vol] 30.4 g/dL 32-36 [facility] No Panel InformationOrdered By: Yisel Rendon on 02-04-2023 27.2 pg 27.0-32.0 [facility] 17.8 % 11.6-14.6 [facility] 56.6 fl 35.1-43.9 [facility] 2.300 % 0.0-0.9 [facility] 0 % 0-5 [facility] 67 mL/min >60 [facility] 81 mL/min >60 [facility] 63.83 ml/min [facility] 10.6 RATIO 10-20 [facility] 25.0 mmol/L 21.0-32.0 [facility] Platelets bldOrdered By: José Luis Rendon on 02-04-2023 Platelets (Bld) [#/Vol] 341 10*3/uL 150-450 [facility] Serum or plasma calcium antoine urement (mass/volume)Ordered By: Yisel Rendon on 02-04-2023 Calcium [Mass/Vol] 8.4 mg/dL 8.5-10.1 [facility] Serum or plasma creatinine m easurement (mass/volume)Ordered By: Yisel Rendon on 02-04-2023 Creatinine [Mass/Vol] 1.13 mg/dL 0.70-1.30 [facility] Serum or plasma urea nitroge n measurement (mass/volume)Ordered By: Yisel Rendon on 02-04-2023 Urea nitrogen [Mass/Vol] 12 mg/dL 7-18 [facility] Thin prep Papanicolaou smear with manual screeningOrdered By: Yisel Rendon on 02-04-2023 Thin prep Papanicolaou smear with manual screening 6 5-15 [facility] Blood band neutrophil count as percentage of total leukocytesOrdered By: Yisel Rendon on 01-31-2023 Band form neutrophils/100 WBC (Bld) 3 % 0-5 [facility] Blood eosinophils/100 leukoc ytesOrdered By: Yisel Rendon on 01-31-2023 Eosinophils/100 WBC (Bld) 2 % 0-5 [facility] Blood lymphocytes/100 leukoc ytesOrdered By: Yisel Rendon on 01-31-2023 Lymphocytes/100 WBC (Bld) 22 % 19-41 [facility] Blood metamyelocytes/100 yolis kocytesOrdered By: Yisel Rendon on 01-31-2023 Metamyelocytes/100 WBC (Bld) 1 % 0-1 [facility] Blood monocytes/100 leukocyt esOrdered By: Yisel Rendon on 01-31-2023 Monocytes/100 WBC (Bld) 5 % 0-[address] [facility] Blood platelet adequacy dete ction by light microscopyOrdered By: Yisel Rendon on 01-31-2023 Platelets LM Ql (Bld) ADEQUATE ADEQ [facility] Blood polychromasia detectio n by light microscopyOrdered By: Yisel Rendon on 01-31-2023 Polychromasia LM Ql (Bld) RARE [facility] Blood segmented neutrophils/ 100 leukocytesOrdered By: Yisel Rendon on 01-31-2023 Segmented neutrophils/100 WBC (Bld) 64 % 47-70 [facility] No Panel InformationOrdered By: Yisel Rendon on 01-31-2023 3 % 0-0 [facility] Review by pathologistOrdered By: Yisel Rendon on 01-31-2023 Pathologist review Ori (Unsp spec) [Interp] Reviewed [facility] Total cell countOrdered By: Yisel Rendon on 01-31-2023 Cells counted Molgen (Bld/Tiss) [#] 100 MANUAL DIFF [facility] Basophil percentageOrdered B y: Yisel Rendon on 01-30-2023 Basophil percentage 148 U/L 87-241 [facility] Blood manual differential co mment interpretation (narrative result)Ordered By: Yisel Rendon on 01-30-2023 Manual differential comment Ori (Bld) [Interp] SCANNED [facility] Hemoglobin in reticulocytes (mass per reticulocyte)Ordered By: Yisel Rendon on 01-30-2023 Hemoglobin (Reticulocytes) [Entitic mass] 22.8 pg 30-35 [facility] Hypochromatic red blood cell detectionOrdered By: Yisel Rendon on 01-30-2023 Hypochromia Ql (Bld) 1+ [facility] Iron measurement (mass/mass) Ordered By: Yisel Rendon on 01-30-2023 Iron (Unsp spec) [Mass/Mass] 28 ug/dL 65-175 [facility] No Panel InformationOrdered By: Yisel Rendon on 01-30-2023 RARE % [facility] 3.53 % 0.5-1.5 [facility] 40.30 % 3.00-15.90 [facility] 635 pg/mL 211-911 [facility] 166 ug/dL 250-450 [facility] Serum or plasma ferritin hank surement (mass/volume)Ordered By: Yisel Rendon on 01-30-2023 Ferritin [Mass/Vol] 138 ng/mL 26-388 [facility] Serum or plasma folate measu rement (mass/volume)Ordered By: Yisel Rendon on 01-30-2023 Folate [Mass/Vol] 4.60 ng/mL 3.1-55.4 [facility] Serum or plasma iron saturat ion measurement (mass fraction)Ordered By: Yisel Rendon on 01-30-2023 Iron saturation [Mass fraction] 16.9 % 15.0-55.0 [facility] No Panel InformationOrdered By: Yisel Rendon on 01-29-2023 RARE [facility] Vancomycin troughOrdered By: Karen Aly on 01-29-2023 Vancomycin trough [Mass/Vol] 7.8 ug/mL 5.0-15.0 [facility] Basophil percentageOrdered B y: Karen Aly on 01-28-2023 Basophil percentage 5.8 g/dL 6.4-8.2 [facility] Basophil percentage 0.70 mg/dL 0.20-1.00 [facility] No Panel InformationOrdered By: Karen Aly on 01-28-2023 3.8 g/dL 2.2-4.2 [facility] 81 U/L 45-117 [facility] 85 U/L 16-61 [facility] Serum or plasma albumin antoine urement (mass/volume)Ordered By: Karen Aly on 01-28-2023 Albumin [Mass/Vol] 2.0 g/dL 3.2-5.0 [facility] Serum or plasma albumin/glob ulin mass ratioOrdered By: Karen Jermain on 01-28-2023 Albumin/Globulin [Mass ratio] 0.5 {ratio} 0.9-2.4 [facility] Thin prep Papanicolaou smear with manual screeningOrdered By: [facility] Jermain on 01-28-2023 Thin prep Papanicolaou smear with manual screening 49 U/L 15-37 [facility] Absolute lymphocyte countOrd ered By: Syed Allen on 01-27-2023 Lymphocytes Auto (Unsp spec) [#/Vol] 1.35 10*3/uL 0.83-4.51 [facility] Basophil percentageOrdered B y: Karen Aly on 01-27-2023 Basophil percentage 2.6 mg/dL 2.5-4.9 [facility] Basophil percentageOrdered B y: Syed Allen on 01-27-2023 Basophils/100 WBC (Bld) 0.1 % 0-[address] [facility] Bilirubin [Mass/Vol] 0.50 mg/dL 0.20-1.00 [facility] Comment on above: For patients on eltr ombopag therapy, use of Dimension [place] TBIL is not recommended. Chloride [Moles/Vol] 111 mmol/L 98-107 [facility] Eosinophils/100 WBC (Bld) 2.9 % 0-5 [facility] Glucose [Mass/Vol] 215 mg/dL 74-106 [facility] Comment on above: Glucose result great er than or equal to 200 mg/dLsuggests DIABETES MELLITUS per A.D.A. criteria. Neutrophils (Bld) [#/Vol] 8.0 10*3/uL 2.0-7.7 [facility] Neutrophils/100 WBC (Bld) 73.8 % 47-70 [facility] Potassium [Moles/Vol] 4.0 mmol/L 3.5-5.1 [facility] Protein [Mass/Vol] 5.3 g/dL 6.4-8.2 [facility] Sodium [Moles/Vol] 140 mmol/L 136-145 [facility] WBC (Bld) [#/Vol] 10.9 10*3/uL 4.4-11.0 [facility] Blood erythrocytes count (nu mber/volume)Ordered By: Syed Allen on 01-27-2023 RBC (Bld) [#/Vol] 2.91 10*6/uL 4.6-6.2 [facility] Blood hemoglobin measurement (mass/volume)Ordered By: Syed Allen on 01-27-2023 Hemoglobin (Bld) [Mass/Vol] 8.2 g/dL 13.0-16. 5 [facility] Blood lymphocytes/100 leukoc ytesOrdered By: Syed Allen on 01-27-2023 Lymphocytes/100 WBC (Bld) 12.4 % 19-41 [facility] Blood monocytes/100 leukocyt esOrdered By: Syed Allen on 01-27-2023 Monocytes/100 WBC (Bld) 8.2 % 0-10 [facility] Blood platelet mean volumeOr dered By: Syed Allen on 01-27-2023 Platelet mean volume (Bld) [Entitic vol] 9.9 fL 6.2-12.0 [facility] Determination of erythrocyte mean corpuscular volume (MCV)Ordered By: Syed Allen on 01-27-2023 MCV (RBC) [Entitic vol] 88.0 fL 80-94 [facility] Hematocrit Auto (Bld) [Volum e fraction]Ordered By: Syed Allen on 01-27-2023 Hematocrit (Bld) [Volume fraction] 25.6 % 40-54 [facility] INR in Blood by Coagulation assayOrdered By: Syed Allen on 01-27-2023 INR Coag (Bld) [Relative time] 1.6 {INR} [facility] Laboratory - Chemistry and C hemistry - challengeOrdered By: Syed Allen on 01-27-2023 ALP [Catalytic activity/Vol] 78 U/L 45-117 [facility] ALT [Catalytic activity/Vol] 81 U/L 16-61 [facility] CO2 [Moles/Vol] 25.0 mmol/L 21.0-32.0 [facility] Globulin (S) [Mass/Vol] 3.5 g/dL 2.2-4.2 [facility] Lipase [Catalytic activity/Vol] 233 U/L 13-75 [facility] Comment on above: Please note:LIPASE r evised reference range effective 22. New Lipase methodology. Expected to produce lower values than the previous assay method. NEW Reference Range: 13 - 75 U/L Urea nitrogen/Creatinine [Mass ratio] 20.4 mg/mg 10-20 [facility] Laboratory - CoagulationOrde red By: Syed Allen on 01-27-2023 PT Coag (PPP) [Time] 19.4 s 11.7-14.9 [facility] Laboratory - Hematology and Cell countsOrdered By: Syed Allen on 01-27-2023 Erythrocyte distribution width (RBC) [Entitic vol] 49.3 fL 35.1-43.9 [facility] Erythrocyte distribution width (RBC) [Ratio] 15.5 % 11.6-14.6 [facility] Immature granulocytes/100 WBC (Bld) 2.600 % 0.0-0.9 [facility] Comment on above: IG% - Immature Granu locytes (promyelocytes, myelocytes and metamyelocytes) > 1% indicates that a LEFT SHIFT is Present. MCH (RBC) [Entitic mass] 28.2 pg 27.0-32.0 [facility] Nucleated RBC/100 WBC (Bld) [Ratio] 0.2 % 0-5 [facility] MCHC Auto (RBC) [Mass/Vol]Or dered By: Syed Allen on 01-27-2023 MCHC (RBC) [Mass/Vol] 32.0 g/dL 32-36 [facility] No Panel InformationOrdered By: Karen Aly on 01-27-2023 Negative Negative [facility] 1.7 mg/dL 1.6-2.6 [facility] No Panel InformationOrdered By: Syed Allen on 01-27-2023 Estimated Creatinine Clearance Calc 50.80 ml/min [facility] Estimated GFR (MDRD) Amer 63 mL/min >60 [facility] Comment on above: GFR Calc Estimated GFR (MDRD) Non-Af Amer 52 mL/min >60 [facility] Comment on above: Non- GFR Calc 19.4 SECONDS 11.7-14.9 [facility] 233 U/L 13-75 [facility] Platelets bldOrdered By: Glenroy Allen on 01-27-2023 Platelets (Bld) [#/Vol] 259 10*3/uL 150-450 [facility] Serum or plasma albumin antoine urement (mass/volume)Ordered By: Syed Allen on 01-27-2023 Albumin [Mass/Vol] 1.8 g/dL 3.2-5.0 [facility] Serum or plasma albumin/glob ulin mass ratioOrdered By: Syed Allen on 01-27-2023 Albumin/Globulin [Mass ratio] 0.5 {ratio} 0.9-2.4 [facility] Serum or plasma calcium antoine urement (mass/volume)Ordered By: Syed Allen on 01-27-2023 Calcium [Mass/Vol] 8.3 mg/dL 8.5-10.1 [facility] Serum or plasma creatinine m easurement (mass/volume)Ordered By: Syed Allen on 01-27-2023 Creatinine [Mass/Vol] 1.42 mg/dL 0.70-1.30 [facility] Comment on above: The validity of the calculated GFR & GFRAA in patients over 70 years has not been determined. Clinical correlation is essential. Serum or plasma urea nitroge n measurement (mass/volume)Ordered By: Syed Allen on 01-27-2023 Urea nitrogen [Mass/Vol] 29 mg/dL 7-18 [facility] Serum procalcitonin measurem entOrdered By: Karen Aly on 01-27-2023 Procalcitonin [Mass/Vol] 0.12 ng/mL 0.00-0.09 [facility] Thin prep Papanicolaou smear with manual screeningOrdered By: Syed Allen on 01-27-2023 Thin prep Papanicolaou smear with manual screening 68 U/L 15-37 [facility] Thin prep Papanicolaou smear with manual screening 4 5-15 [facility] Urine Legionella pneumophila antigen detectionOrdered By: Karen Aly on 01-27-2023 L. pneumophila Ag Ql (U) [facility] Absolute lymphocyte countOrd ered By: Ryan Tinoco on 01-26-2023 Lymphocytes Auto (Unsp spec) [#/Vol] 0.69 10*3/uL 0.83-4.51 [facility] Basophil percentageOrdered B y: Karen Aly on 01-26-2023 Basophil percentage 2.4 mg/dL 2.5-4.9 [facility] Basophil percentageOrdered B y: Ryan Tinoco on 01-26-2023 Basophil percentage 235 mg/dL 74-106 [facility] Basophil percentage 143 mmol/L 136-145 [facility] Basophil percentage 3.8 mmol/L 3.5-5.1 [facility] Basophil percentage 114 mmol/L 98-107 [facility] Basophils (Bld) [#/Vol] 8.5 10*3/uL 4.4-11.0 [facility] Basophils (Bld) [#/Vol] 6.7 10*3/uL 2.0-7.7 [facility] Basophils/100 WBC (Bld) 0.1 % 0-1 [facility] Basophils/100 WBC (Bld) 78.4 % 47-70 [facility] Basophils/100 WBC (Bld) 1.6 % 0-[address] [facility] Chloride [Moles/Vol] 114 mmol/L 98-107 [facility] Eosinophils/100 WBC (Bld) 1.6 % 0-5 [facility] Glucose [Mass/Vol] 235 mg/dL 74-106 [facility] Comment on above: Glucose result great er than or equal to 200 mg/dLsuggests DIABETES MELLITUS per A.D.A. criteria. Neutrophils (Bld) [#/Vol] 6.7 10*3/uL 2.0-7.7 [facility] Neutrophils/100 WBC (Bld) 78.4 % 47-70 [facility] Potassium [Moles/Vol] 3.8 mmol/L 3.5-5.1 [facility] Sodium [Moles/Vol] 143 mmol/L 136-145 [facility] WBC (Bld) [#/Vol] 8.5 10*3/uL 4.4-11.0 [facility] Blood erythrocytes count (nu mber/volume)Ordered By: Ryan Tinoco on 01-26-2023 RBC (Bld) [#/Vol] 3.06 10*6/uL 4.6-6.2 [facility] Blood hemoglobin measurement (mass/volume)Ordered By: Ryan Tinoco on 01-26-2023 Hemoglobin (Bld) [Mass/Vol] 8.6 g/dL 13.0-16. 5 [facility] Blood lymphocytes/100 leukoc ytesOrdered By: Ryan Tinoco on 01-26-2023 Lymphocytes/100 WBC (Bld) 8.1 % 19-41 [facility] Blood monocytes/100 leukocyt esOrdered By: Ryan Tinoco on 01-26-2023 Monocytes/100 WBC (Bld) 9.6 % 0-10 [facility] Blood platelet mean volumeOr dered By: Ryan Tinoco on 01-26-2023 Platelet mean volume (Bld) [Entitic vol] 9.9 fL 6.2-12.0 [facility] COVID-19 virus antigen assay Ordered By: Ryan Tinoco on 01-26-2023 SARS-CoV-2 (COVID-19) Ag IA.rapid Ql (Resp) [facility] SARS-CoV-2 (COVID-19) Ag IA.rapid Ql (Resp) [facility] Determination of erythrocyte mean corpuscular volume (MCV)Ordered By: Ryan Tinoco on 01-26-2023 MCV (RBC) [Entitic vol] 88.6 fL 80-94 [facility] Glucose Glucometer (dC) [M ass/Vol]Ordered By: Ryan Tinoco on 01-26-2023 Glucose [Mass/Vol] 230 mg/dL 74-106 [facility] Comment on above: MANAGEMENT OF PATIEN T CARE PER NURSING PROTOCOL Hematocrit Auto (Bld) [Volum e fraction]Ordered By: Ryan Tinoco on 01-26-2023 Hematocrit (Bld) [Volume fraction] 27.1 % 40-54 [facility] Laboratory - Chemistry and C hemistry - challengeOrdered By: Ryan Tinoco on 01-26-2023 CO2 [Moles/Vol] 23.0 mmol/L 21.0-32.0 [facility] Urea nitrogen/Creatinine [Mass ratio] 18.8 mg/mg 10-20 [facility] Laboratory - Chemistry and C hemistry - challengeOrdered By: Karen Aly on 01-26-2023 Magnesium [Mass/Vol] 1.8 mg/dL 1.6-2.6 [facility] - Hematology and Cell countsOrdered By: Ryan Tinoco on 01-26-2023 Erythrocyte distribution width (RBC) [Entitic vol] 50.6 fL 35.1-43.9 [facility] Erythrocyte distribution width (RBC) [Ratio] 15.9 % 11.6-14.6 [facility] Immature granulocytes/100 WBC (Bld) 2.200 % 0.0-0.9 [facility] Comment on above: IG% - Immature Granu locytes (promyelocytes, myelocytes and metamyelocytes) > 1% indicates that a LEFT SHIFT is Present. MCH (RBC) [Entitic mass] 28.1 pg 27.0-32.0 [facility] Nucleated RBC/100 WBC (Bld) [Ratio] 0.5 % 0-5 [facility] MCHC Auto (RBC) [Mass/Vol]Or dered By: Ryan Tinoco on 01-26-2023 MCHC (RBC) [Mass/Vol] 31.7 g/dL 32-36 [facility] No Panel InformationOrdered By: Ryan Tinoco on 01-26-2023 Estimated Creatinine Clearance Calc 48.41 ml/min [facility] Estimated GFR (MDRD) Amer 59 mL/min >60 [facility] Comment on above: GFR Calc Estimated GFR (MDRD) Non-Af Amer 49 mL/min >60 [facility] Comment on above: Non- GFR Calc 28.1 pg 27.0-32.0 [facility] 15.9 % 11.6-14.6 [facility] 50.6 fl 35.1-43.9 [facility] 2.200 % 0.0-0.9 [facility] 0.5 % 0-5 [facility] 49 mL/min >60 [facility] 59 mL/min >60 [facility] 48.41 ml/min [facility] 18.8 RATIO 10-20 [facility] 23.0 mmol/L 21.0-32.0 [facility] No Panel InformationOrdered By: Karen Aly on 01-26-2023 1.8 mg/dL 1.6-2.6 [facility] Platelets bldOrdered By: Jaziel Tinoco on 01-26-2023 Platelets (Bld) [#/Vol] 217 10*3/uL 150-450 [facility] Serum or plasma calcium antoine urement (mass/volume)Ordered By: Ryan Tinoco on 01-26-2023 Calcium [Mass/Vol] 8.5 mg/dL 8.5-10.1 [facility] Serum or plasma creatinine m easurement (mass/volume)Ordered By: Ryan Tinoco on 01-26-2023 Creatinine [Mass/Vol] 1.49 mg/dL 0.70-1.30 [facility] Comment on above: The validity of the calculated GFR & GFRAA in patients over 70 years has not been determined. Clinical correlation is essential. Serum or plasma urea nitroge n measurement (mass/volume)Ordered By: Ryan Tinoco on 01-26-2023 Urea nitrogen [Mass/Vol] 28 mg/dL 01-29 [facility] Thin prep Papanicolaou smear with manual screeningOrdered By: Ryan Tinoco on 01-26-2023 Thin prep Papanicolaou smear with manual screening 6 11-26 [facility] INR in Blood by Coagulation assayOrdered By: Ryan Tinoco on 01-25-2023 INR Coag (Bld) [Relative time] 1.6 {INR} [facility] Laboratory - CoagulationOrde red By: Ryan Tinoco on 01-25-2023 PT Coag (PPP) [Time] 19.1 s 11.7-14.9 [facility] No Panel InformationOrdered By: Ryan Tinoco on 01-25-2023 19.1 SECONDS 11.7-14.9 [facility] Albumin Elph [Mass/Vol]Order ed By: Liu Hackett on 01-22-2023 Albumin [Mass/Vol] 2.5 g/dL 2.9-4.4 [facility] Aldolase ser/plasOrdered By: Liu Hackett on 01-22-2023 Aldolase [Catalytic activity/Vol] 1.5 mU/mL 3.3-10.3 [facility] Comment on above: Performed at: [address] [id number] Director: Ernie Jacob PhD, Phone: [phone] at: [facility] [id number] Director: Lindsay Kearns MD, Phone: [phone] Atypical perinuclear antineu trophil cytoplasmic antibodies measurementOrdered By: Liu Hackett on 01-22-2023 Neutrophil cytoplasmic Ab.perinuclear.atypical IF (S) [Titer] <1:20 titer Neg:<1:20 [facility] Comment on above: The atypical pANCA p attern has been observed in asignificant percentage of patients with ulcerative colitis,primary sclerosing cholangitis and autoimmune hepatitis. Basophil percentageOrdered B y: Liu Hackett on 01-22-2023 Basophil percentage < 0.2 AI 0.0-0.9 [facility] Basophil percentage 3.4 mmol/L 0.4-2.0 [facility] Basophil percentage 136 U/L 87-241 [facility] Lactate [Moles/Vol] 3.4 mmol/L 0.4-2.0 [facility] Comment on above: Critical Result(s) C alled at: 12:30:42 01/22/2023 by: Aruna Morales. Inocencio Martin RN (ICU). Results read back by same. LDH [Catalytic activity/Vol] 136 U/L 87-241 [facility] Blood polychromasia detectio n by light microscopyOrdered By: Jesus Burnham on 01-22-2023 Polychromasia LM Ql (Bld) 1+ [facility] Interpretation of serum or p lasma protein pattern by immunofixation (narrative resultOrdered By: Liu Hackett on 01-22-2023 Protein Fractions Immunofixation Ori [Interp] See comment [facility] Comment on above: NOT OBSERVED Laboratory - Chemistry and C hemistry - challengeOrdered By: Lui Hackett on 01-22-2023 CK [Catalytic activity/Vol] 31 U/L 39-308 [facility] Laboratory - Hematology and Cell countsOrdered By: Jesus Burnham on 01-22-2023 Anisocytosis Ql (Bld) 1+ [facility] No Panel InformationOrdered By: Liu Hackett on 01-22-2023 Addendum Document Comment . [facility] Comment on above: Protein electrophore sis scan will follow via computer,mail, or emergency room technician delivery. [employer] B Antibody <0.2 AI 0.0-0.9 [facility] Immunoglobulin E 399 IU/mL 6-495 [facility] Immunoglobulin G4 8 mg/dL 2-96 [facility] [employer] Antibody <0.2 AI 0.0-0.9 [facility] 31 U/L 39-308 [facility] 8 mg/dL 2-96 [facility] 399 IU/mL 6-495 [facility] <0.2 AI 0.0-0.9 [facility] No Panel InformationOrdered By: Jesus Burnham on 01-22-2023 1+ [facility] Review by pathologistOrdered By: Jesus Burnham on 01-22-2023 Pathologist review Ori (Unsp spec) [Interp] Reviewed [facility] Comment on above: Previous reported re sult: Corie sr Edited by: KEN on 01/23/23:1008Neutrophilic leukocytosis with left shift.Normocytic anemia.Clinical correlation necessary.Evaristo Dela Cruz M.D. 01/23/23 AMENDED REPORT 01/23/23 1008 PATH REV previously reported as: Corie sr Serum DNA double strand anti body assay (units/volume)Ordered By: Liu Hackett on 01-22-2023 DNA double strand Ab Qn (S) [IU]/mL 0-9 [facility] Comment on above: Negative <5 Equivoca l 5 - 9 Positive >9 Serum IgG subclass 1 measure ment (mass/volume)Ordered By: Liu Hackett on 01-22-2023 IgG subclass 1 (S) [Mass/Vol] 237 mg/dL 248-810 [facility] Serum IgG subclass 2 measure ment (mass/volume)Ordered By: Liu Hackett on 01-22-2023 IgG subclass 2 (S) [Mass/Vol] 115 mg/dL 130-555 [facility] Serum IgG subclass 3 measure ment (mass/volume)Ordered By: Liu Hackett on 01-22-2023 IgG subclass 3 (S) [Mass/Vol] 20 mg/dL 15-102 [facility] Serum Kelsey-1 antibody assay (u nits/volume)Ordered By: Liu Hackett on 01-22-2023 Kelsey-1 extractable nuclear Ab Qn (S) <0.2 AI 0.0-0.9 [facility] Serum Scl-70 extractable nuc lear antibody assay (units/volume)Ordered By: Liu Hackett on 01-22-2023 SCL-70 extractable nuclear Ab Qn (S) <0.2 AI 0.0-0.9 [facility] Serum Martinez extractable nucl ear antibody detectionOrdered By: Liu Hackett on 01-22-2023 Martinez extractable nuclear Ab Ql (S) <0.2 AI 0.0-0.9 [facility] Serum [id number] measu rement by electrophoresisOrdered By: Liu Hackett on 01-22-2023 Alpha 1 globulin Elph [Mass/Vol] 0.2 g/dL 0.0-0.4 [facility] Alpha 1 globulin Elph [Mass/Vol] 0.6 g/dL 0.4-1.0 [facility] Serum classic neutrophil cyt oplasmic antibody assay (units/volume)Ordered By: Liu Hackett on 01-22-2023 Neutrophil cytoplasmic Ab.classic Qn (S) <1:20 titer Neg:<1:20 [facility] Serum globulin measurement ( mass/volume)Ordered By: Liu Hackett on 01-22-2023 Globulin (S) [Mass/Vol] 1.9 g/dL 2.2-3.9 [facility] Serum or plasma IgA measurem ent (mass/volume)Ordered By: Liu Hackett on 01-22-2023 IgA [Mass/Vol] 194 mg/dL 61-437 [facility] Serum or plasma IgG measurem ent (mass/volume)Ordered By: Liu Hackett on 01-22-2023 IgG [Mass/Vol] 417 mg/dL [phone] [facility] IgG [Mass/Vol] Not Reportable [facility] Serum or plasma IgM measurem ent (mass/volume)Ordered By: Liu Hackett on 01-22-2023 IgM [Mass/Vol] 15 mg/dL 15-143 [facility] Comment on above: Result confirmed on concentration. Serum or plasma beta globuli n measurement by electrophoresis (mass/volume)Ordered By: Liu Hackett on 01-22-2023 Beta globulin Elph [Mass/Vol] 0.7 g/dL 0.7-1.3 [facility] Serum or plasma gamma globul in measurement by electrophoresis (mass/volume)Ordered By: Liu Hackett on 01-22-2023 Gamma globulin Elph [Mass/Vol] 0.3 g/dL 0.4-1.8 [facility] Serum or plasma immunoelectr ophoresis interpretation (nominal result)Ordered By: Liu Hackett on 01-22-2023 Interpretation IEP [Interp] Comment . [facility] Comment on above: No monoclonality det ected. Serum perinuclear neutrophil cytoplasmic antibody titer by immunofluorescenceOrdered By: Liu Hackett on 01-22-2023 Neutrophil cytoplasmic Ab.perinuclear IF (S) [Titer] <1:20 titer Neg:<1:20 [facility] Comment on above: The presence of posi tive fluorescence exhibiting P-ANCA orC-ANCA patterns alone is not specific for the diagnosis ofWegener's Granulomatosis (WG) or microscopic polyangiitis.Decisions about treatment should not be based solely onANCA IFA results. The [employer] ANCA [employer] Consensusrecommends follow up testing of positive sera with both FL-3 and MPO-ANCA enzyme immunoassays. As many as 5% serumsamples are positive only by EIA. Ref. AM J Clin [id number];111:507-513. Thin prep Papanicolaou smear with manual screeningOrdered By: Liu Hackett on 01-22-2023 Thin prep Papanicolaou smear with manual screening 1.4 0.7-1.7 [facility] Total protein bloodOrdered B y: Liu Hackett on 01-22-2023 Protein [Mass/Vol] 4.4 g/dL 6.0-8.5 [facility] Absolute lymphocyte countOrd ered By: Dandy Sauer on 01-21-2023 Lymphocytes Auto (Unsp spec) [#/Vol] 1.69 10*3/uL 0.83-4.51 [facility] Basophil percentageOrdered B y: Dandy Sauer on 01-21-2023 Basophil percentage 0-5 SEEN /hpf 0-5 [facility] Basophil percentage 5.4 g/dL 6.4-8.2 [facility] Basophil percentage 0.30 mg/dL 0.20-1.00 [facility] Basophils/100 WBC (Bld) 0.3 % 0-[address] [facility] Bilirubin [Mass/Vol] 0.30 mg/dL 0.20-1.00 [facility] Comment on above: For patients on eltr ombopag therapy, use of Dimension [place] TBIL is not recommended. Chloride [Moles/Vol] 109 mmol/L 98-107 [facility] Eosinophils/100 WBC (Bld) 0.0 % 0-5 [facility] Glucose [Mass/Vol] 248 mg/dL 74-106 [facility] Comment on above: Glucose result great er than or equal to 200 mg/dLsuggests DIABETES MELLITUS per A.D.A. criteria. Lactate [Moles/Vol] 7.9 mmol/L 0.4-2.0 [facility] Comment on above: Critical Result(s) C alled at: 09:48:37 01/21/2023 by: Aruna Tadeo. Results read back by same. Neutrophils (Bld) [#/Vol] 19.7 10*3/uL 2.0-7.7 [facility] Neutrophils/100 WBC (Bld) 87.8 % 47-70 [facility] Potassium [Moles/Vol] 5.2 mmol/L 3.5-5.1 [facility] Protein [Mass/Vol] 5.4 g/dL 6.4-8.2 [facility] Sodium [Moles/Vol] 138 mmol/L 136-145 [facility] WBC (Bld) [#/Vol] 22.4 10*3/uL 4.4-11.0 [facility] Bilirubin Test strip Ql (U)O rdered By: Dandy Sauer on 01-21-2023 Bilirubin Ql (U) 1 mg/dL Negative [facility] Comment on above: COLOR OF URINE MAY A FFECT DIPSTICK RESULTS. Blood erythrocytes count (nu mber/volume)Ordered By: Dandy Sauer on 01-21-2023 RBC (Bld) [#/Vol] 3.96 10*6/uL 4.6-6.2 [facility] Blood hemoglobin measurement (mass/volume)Ordered By: Dandy Sauer on 01-21-2023 Hemoglobin (Bld) [Mass/Vol] 10.7 g/dL 13.0-16. 5 [facility] Blood lymphocytes/100 leukoc ytesOrdered By: Dandy Sauer on 01-21-2023 Lymphocytes/100 WBC (Bld) 7.5 % 19-41 [facility] Blood monocytes/100 leukocyt esOrdered By: Dandy Sauer on 01-21-2023 Monocytes/100 WBC (Bld) 2.4 % 0-10 [facility] Blood platelet mean volumeOr dered By: Dandy Sauer on 01-21-2023 Platelet mean volume (Bld) [Entitic vol] 10.7 fL 6.2-12.0 [facility] Determination of erythrocyte mean corpuscular volume (MCV)Ordered By: Dandy Sauer on 01-21-2023 MCV (RBC) [Entitic vol] 86.6 fL 80-94 [facility] Hematocrit Auto (Bld) [Volum e fraction]Ordered By: Dandy Sauer on 01-21-2023 Hematocrit (Bld) [Volume fraction] 34.3 % 40-54 [facility] INR in Blood by Coagulation assayOrdered By: Dandy Sauer on 07-10-2023 INR Coag (Bld) [Relative time] 4.2 {INR} [facility] Comment on above: CRITICAL VALUE VERIF IED. CALLED TO EVANS MARI (ER)01/21/23 1011 Zachary Gabriel.RESULTS READ BACK BY SAME. Ketones Test strip Ql (U)Ord ered By: Dandy Sauer on 01-21-2023 Ketones Ql (U) 15 mg/dl Negative [facility] Laboratory - Chemistry and C hemistry - challengeOrdered By: Dandy Sauer on 01-21-2023 ALP [Catalytic activity/Vol] 76 U/L 45-117 [facility] ALT [Catalytic activity/Vol] 25 U/L 16-61 [facility] CO2 [Moles/Vol] 12.0 mmol/L 21.0-32.0 [facility] Globulin (S) [Mass/Vol] 2.7 g/dL 2.2-4.2 [facility] Urea nitrogen/Creatinine [Mass ratio] 62.8 mg/mg 10-20 [facility] Laboratory - CoagulationOrde red By: Dandy Sauer on 01-21-2023 PT Coag (PPP) [Time] 41.4 s 11.7-14.9 [facility] Laboratory - Hematology and Cell countsOrdered By: Dandy Sauer on 01-21-2023 Erythrocyte distribution width (RBC) [Entitic vol] 46.6 fL 35.1-43.9 [facility] Erythrocyte distribution width (RBC) [Ratio] 14.7 % 11.6-14.6 [facility] Immature granulocytes/100 WBC (Bld) 2.000 % 0.0-0.9 [facility] Comment on above: IG% - Immature Granu locytes (promyelocytes, myelocytes and metamyelocytes) > 1% indicates that a LEFT SHIFT is Present. MCH (RBC) [Entitic mass] 27.0 pg 27.0-32.0 [facility] Nucleated RBC/100 WBC (Bld) [Ratio] 0 % 0-5 [facility] Lower GI hemoglobin IA Ql (S tl)Ordered By: Dandy Sauer on 01-21-2023 Stool gastrointestinal hemoglobin detection by immunologic method Positive [facility] Stool Occult Blood (KLAUS) Positive [facility] Stool gastrointestinal hemoglobin detection by immunologic method Positive [facility] MCHC Auto (RBC) [Mass/Vol]Or dered By: Dandy Sauer on 01-21-2023 MCHC (RBC) [Mass/Vol] 31.2 g/dL 32-36 [facility] Mucus LM Ql (Urine sed)Order ed By: Dandy Sauer on 01-21-2023 Mucus Ql (Urine sed) 0 SEEN /hpf [facility] Nitrite Test strip Ql (U)Ord ered By: Dandy Sauer on 01-21-2023 Nitrite Ql (U) Negative Negative [facility] No Panel InformationOrdered By: Dandy Sauer on 01-21-2023 Estimated Creatinine Clearance Calc 36.25 ml/min [facility] Estimated GFR (MDRD) Amer 42 mL/min >60 [facility] Comment on above: GFR Calc Estimated GFR (MDRD) Non-Af Amer 35 mL/min >60 [facility] Comment on above: Non- GFR Calc Troponin I High Sensitivity 23 pg/mL 3.0-78.0 [facility] Comment on above: Please Note: New Thania t Units and Gender Specific Reference Ranges. For more information see Policy Stat Procedure [place] High Sensitivity Troponin (TNIH) and attachments. 23 pg/mL 3.0-78.0 [facility] 76 U/L 45-117 [facility] 25 U/L 16-61 [facility] Platelets bldOrdered By: Renetta Sauer on 01-21-2023 Platelets (Bld) [#/Vol] 389 10*3/uL 150-450 [facility] Protein Test strip Ql (U)Ord ered By: Dandy Sauer on 01-21-2023 Protein Ql (U) 15 mg/dl Negative [facility] Serum or plasma albumin antoine urement (mass/volume)Ordered By: Dandy Sauer on 01-21-2023 Albumin [Mass/Vol] 2.7 g/dL 3.2-5.0 [facility] Serum or plasma albumin/glob ulin mass ratioOrdered By: Dandy Sauer on 01-21-2023 Albumin/Globulin [Mass ratio] 1.0 {ratio} 0.9-2.4 [facility] Serum or plasma calcium antoine urement (mass/volume)Ordered By: Dandy Saure on 01-21-2023 Calcium [Mass/Vol] 9.7 mg/dL 8.5-10.1 [facility] Serum or plasma creatinine m easurement (mass/volume)Ordered By: Dandy Sauer on 01-21-2023 Creatinine [Mass/Vol] 1.99 mg/dL 0.70-1.30 [facility] Comment on above: The validity of the calculated GFR & GFRAA in patients over 70 years has not been determined. Clinical correlation is essential. Serum or plasma urea nitroge n measurement (mass/volume)Ordered By: Dandy Sauer on 01-21-2023 Urea nitrogen [Mass/Vol] 125 mg/dL 7-18 [facility] Comment on above: Critical Result(s) C alled at: 09:53:00 01/21/2023 by: Aruna Tadeo. Results read back by same. Squamous epithelial cells de tection in urine sediment by light microscopyOrdered By: Dandy Sauer on 01-21-2023 Epithelial cells.squamous LM Ql (Urine sed) 0-5 SEEN /hpf 0-5 [facility] Thin prep Papanicolaou smear with manual screeningOrdered By: Dandy Sauer on 01-21-2023 Thin prep Papanicolaou smear with manual screening 9 U/L 15-37 [facility] Thin prep Papanicolaou smear with manual screening 17 5-15 [facility] Urine blood detectionOrdered By: Dandy Sauer on 01-21-2023 RBC Ql (U) Negative Negative [facility] RBC Ql (U) 0 SEEN /hpf 0-5 [facility] Urine clarityOrdered By: Renetta Sauer on 01-21-2023 Clarity (U) Clear Clear [facility] Urine color determinationOrd ered By: Dandy Sauer on 01-21-2023 Color (U) Yellow Yellow [facility] Urine glucose detectionOrder ed By: Dandy Sauer on 01-21-2023 Glucose Ql (U) 100 mg/dl Normal [facility] Urine leukocyte esterase det ection by dipstickOrdered By: Dandy Sauer on 01-21-2023 Leukocyte esterase Test strip Ql (U) Negative Negative [facility] Urine pHOrdered By: Dandy Sauer on 01-21-2023 pH (U) 5.0 [pH] 5.0 - 8.0 [facility] Urine sediment bacteria coun t by microscopy (number/high power field)Ordered By: Dandy Sauer on 01-21-2023 Bacteria LM.HPF (Urine sed) [#/Area] 0 /[HPF] None Seen [facility] Urine specific gravity measu rementOrdered By: Dandy Sauer on 01-21-2023 Specific gravity (U) [Rel density] 1.020 1.002-1.03 0 [facility] Urobilinogen Auto test strip Ql (U)Ordered By: Dandy Sauer on 01-21-2023 Urobilinogen Ql (U) Normal mg/dl Normal [facility] Glucose Glucometer (dC) [M ass/Vol]Ordered By: Gabriel Giraldo on 01-08-2023 Glucose [Mass/Vol] 201 mg/dL 74-106 [facility] Comment on above: MANAGEMENT OF PATIEN T CARE PER NURSING PROTOCOL Absolute lymphocyte countOrd ered By: Karen Aly on 01-07-2023 Lymphocytes Auto (Unsp spec) [#/Vol] 1.83 10*3/uL 0.83-4.51 [facility] Basophil percentageOrdered B y: Karen Aly on 01-07-2023 Basophil percentage 121 mg/dL 74-106 [facility] Basophil percentage 6.0 g/dL 6.4-8.2 [facility] Basophil percentage 0.70 mg/dL 0.20-1.00 [facility] Basophil percentage 138 mmol/L 136-145 [facility] Basophil percentage 4.1 mmol/L 3.5-5.1 [facility] Basophil percentage 106 mmol/L 98-107 [facility] Basophils (Bld) [#/Vol] 9.3 10*3/uL 4.4-11.0 [facility] Basophils (Bld) [#/Vol] 6.4 10*3/uL 2.0-7.7 [facility] Basophils/100 WBC (Bld) 0.6 % 0-1 [facility] Basophils/100 WBC (Bld) 69.0 % 47-70 [facility] Basophils/100 WBC (Bld) 2.4 % 0-5 [facility] Bilirubin [Mass/Vol] 0.70 mg/dL 0.20-1.00 [facility] Comment on above: For patients on eltr ombopag therapy, use of Dimension [place] TBIL is not recommended. Chloride [Moles/Vol] 106 mmol/L 98-107 [facility] Eosinophils/100 WBC (Bld) 2.4 % 0-5 [facility] Glucose [Mass/Vol] 121 mg/dL 74-106 [facility] Comment on above: Fasting Glucose resu lt from 100 to 125 mg/dL suggests IMPAIRED HOMEOSTASIS per A.D.A. criteria. Neutrophils (Bld) [#/Vol] 6.4 10*3/uL 2.0-7.7 [facility] Neutrophils/100 WBC (Bld) 69.0 % 47-70 [facility] Potassium [Moles/Vol] 4.1 mmol/L 3.5-5.1 [facility] Protein [Mass/Vol] 6.0 g/dL 6.4-8.2 [facility] Sodium [Moles/Vol] 138 mmol/L 136-145 [facility] WBC (Bld) [#/Vol] 9.3 10*3/uL 4.4-11.0 [facility] Blood erythrocytes count (nu mber/volume)Ordered By: Karen Aly on 01-07-2023 RBC (Bld) [#/Vol] 4.90 10*6/uL 4.6-6.2 [facility] Blood hemoglobin measurement (mass/volume)Ordered By: Karen Aly on 01-07-2023 Hemoglobin (Bld) [Mass/Vol] 13.1 g/dL 13.0-16. 5 [facility] Blood lymphocytes/100 leukoc ytesOrdered By: Jermain on 01-07-2023 Lymphocytes/100 WBC (Bld) 19.8 % 19-41 [facility] Blood monocytes/100 leukocyt esOrdered By: Jermain on 01-07-2023 Monocytes/100 WBC (Bld) 7.2 % 0-[address] [facility] Blood platelet mean volumeOr dered By: Karen Ayl on 01-07-2023 Platelet mean volume (Bld) [Entitic vol] 9.1 fL 6.2-12.0 [facility] Determination of erythrocyte mean corpuscular volume (MCV)Ordered By: Karen Aly on 01-07-2023 MCV (RBC) [Entitic vol] 83.5 fL 80-94 [facility] Hematocrit Auto (Bld) [Volum e fraction]Ordered By: Karen Jermain on 01-07-2023 Hematocrit (Bld) [Volume fraction] 40.9 % 40-54 [facility] INR in Blood by Coagulation assayOrdered By: Karen Aly on 01-07-2023 INR Coag (Bld) [Relative time] 2.2 {INR} [facility] Laboratory - Chemistry and C hemistry - challengeOrdered By: Karen Jermain on 01-07-2023 ALP [Catalytic activity/Vol] 90 U/L 45-117 [facility] ALT [Catalytic activity/Vol] 18 U/L 16-61 [facility] CO2 [Moles/Vol] 24.0 mmol/L 21.0-32.0 [facility] Globulin (S) [Mass/Vol] 3.1 g/dL 2.2-4.2 [facility] Urea nitrogen/Creatinine [Mass ratio] 23.0 mg/mg 10-20 [facility] Laboratory - CoagulationOrde red By: Karen Aly on 01-07-2023 PT Coag (PPP) [Time] 24.8 s 11.7-14.9 [facility] Laboratory - Hematology and Cell countsOrdered By: Karen Jermain on 01-07-2023 Erythrocyte distribution width (RBC) [Entitic vol] 43.7 fL 35.1-43.9 [facility] Erythrocyte distribution width (RBC) [Ratio] 14.5 % 11.6-14.6 [facility] Immature granulocytes/100 WBC (Bld) 1.000 % 0.0-0.9 [facility] Comment on above: IG% - Immature Granu locytes (promyelocytes, myelocytes and metamyelocytes) > 1% indicates that a LEFT SHIFT is Present. MCH (RBC) [Entitic mass] 26.7 pg 27.0-32.0 [facility] Nucleated RBC/100 WBC (Bld) [Ratio] 0 % 0-5 [facility] MCHC Auto (RBC) [Mass/Vol]Or dered By: Karen Aly on 01-07-2023 MCHC (RBC) [Mass/Vol] 32.0 g/dL 32-36 [facility] No Panel InformationOrdered By: Karen Aly on 01-07-2023 Estimated Creatinine Clearance Calc 63.83 ml/min [facility] Estimated GFR (MDRD) Amer 81 mL/min >60 [facility] Comment on above: GFR Calc Estimated GFR (MDRD) Non-Af Amer 67 mL/min >60 [facility] Comment on above: Non- GFR Calc 26.7 pg 27.0-32.0 [facility] 14.5 % 11.6-14.6 [facility] 43.7 fl 35.1-43.9 [facility] 1.000 % 0.0-0.9 [facility] 0 % 0-5 [facility] 24.8 SECONDS 11.7-14.9 [facility] 67 mL/min >60 [facility] 81 mL/min >60 [facility] 63.83 ml/min [facility] 23.0 RATIO 10-20 [facility] 3.1 g/dL 2.2-4.2 [facility] 90 U/L 45-117 [facility] 18 U/L 16-61 [facility] 24.0 mmol/L 21.0-32.0 [facility] Platelets bldOrdered By: Dede Aly on 01-07-2023 Platelets (Bld) [#/Vol] 216 10*3/uL 150-450 [facility] Serum or plasma albumin antoine urement (mass/volume)Ordered By: Karen Aly on 01-07-2023 Albumin [Mass/Vol] 2.9 g/dL 3.2-5.0 [facility] Serum or plasma albumin/glob ulin mass ratioOrdered By: Karen Aly on 01-07-2023 Albumin/Globulin [Mass ratio] 0.9 {ratio} 0.9-2.4 [facility] Serum or plasma calcium antoine urement (mass/volume)Ordered By: Karen Aly on 01-07-2023 Calcium [Mass/Vol] 8.8 mg/dL 8.5-10.1 [facility] Serum or plasma creatinine m easurement (mass/volume)Ordered By: Karen Aly on 01-07-2023 Creatinine [Mass/Vol] 1.13 mg/dL 0.70-1.30 [facility] Comment on above: The validity of the calculated GFR & GFRAA in patients over 70 years has not been determined. Clinical correlation is essential. Serum or plasma urea nitroge n measurement (mass/volume)Ordered By: Karen Aly on 01-07-2023 Urea nitrogen [Mass/Vol] 26 mg/dL 7-18 [facility] Thin prep Papanicolaou smear with manual screeningOrdered By: Karen Aly on 01-07-2023 Thin prep Papanicolaou smear with manual screening 13 U/L 15-37 [facility] Thin prep Papanicolaou smear with manual screening 8 5-15 [facility] Basophil percentageOrdered B y: Karen Aly on 01-05-2023 Basophil percentage 87 mg/dL <200 [facility] Basophil percentage 116 mg/dL <199 [facility] Cholesterol [Mass/Vol] 87 mg/dL <200 [facility] Comment on above: <200 mg/dL Desirable 200-240 mg/dL Borderline >240 mg/dL High Risk Triglyceride [Mass/Vol] 116 mg/dL <199 [facility] Comment on above: The drugs N-Acetylcy steine and Metamizole may falsely depress this assay.Serum Triglycerides Reference Interval Normal <150 mg/dL Borderline high 150 - 199 mg/dL High 200 - 499 mg/dL Very High > or = 500 mg/dL No Panel InformationOrdered By: Karen Aly on 01-05-2023 Thyroid Stimulating Hormone (TSH) 1.13 uIU/mL 0.358-3.74 [facility] 1.13 uIU/mL 0.358-3.74 [facility] Serum or plasma cholesterol in HDL measurement (mass/volume)Ordered By: Karen Aly on 01-05-2023 Cholesterol in HDL [Mass/Vol] 37 mg/dL >40 [facility] Comment on above: The drugs N-Acetylcy steine and Metamizole may falsely depress this assay. Reference Range HDL <40 mg/dL Low HDL Cholesterol HDL >or= 60 mg/dL High HDL Cholesterol Serum or plasma cholesterol in VLDL measurement (mass/volume)Ordered By: Karen Aly on 01-05-2023 Cholesterol in VLDL [Mass/Vol] 23 mg/dL 5-40 [facility] Serum or plasma low density lipoprotein (LDL) cholesterol measurement (mass/volume)Ordered By: Karen Aly on 01-05-2023 Cholesterol in LDL [Mass/Vol] 27 mg/dL 0-130 [facility] Whole blood hemoglobin A1c/t otal hemoglobin ratio (mass fraction)Ordered By: Karen Aly on 01-05-2023 HbA1c (Bld) [Mass fraction] 5.8 % 3.8-5.6 [facility] Comment on above: Normal < 5.7 % Predi abetic 5.7 - 6.4 % Diabetic >or= 6.5 % Please note range changes. Absolute lymphocyte countOrd ered By: Dr. Roberts on 01-04-2023 Lymphocytes Auto (Unsp spec) [#/Vol] 1.31 10*3/uL 0.83-4.51 [facility] Assessment of wrist artery p atency prior to arterial punctureOrdered By: Dr. Aly on 01-04-2023 Arterial patency Wrist artery --pre arterial puncture N/A [facility] Bacteria identified Cx Nom ( U)Ordered By: Maggy Roberts on 01-04-2023 Culture, urine Positive [facility] Base excessOrdered By: Dr. Freddy pettit on 01-04-2023 Base excess Calc (BldV) [Moles/Vol] 0 mmol/L -2-2 [facility] Basophil percentageOrdered B y: Dr. Aly on 01-04-2023 Basophil percentage 23.7 mmol/L 22-26 [facility] Basophils/100 WBC (Bld) 96 % 95-99 [facility] Ammonia (P) [Moles/Vol] 17.0 umol/L - [facility] Basophil percentageOrdered B y: Karen Aly on 01-04-2023 Basophil percentage 17.0 umol/L - [facility] Basophil percentageOrdered B y: Dr. Roberts on 01-04-2023 Basophil percentage 0 SEEN /hpf 0-5 [facility] Basophils/100 WBC (Bld) 0.4 % 0-1 [facility] Bilirubin [Mass/Vol] 0.70 mg/dL 0.20-1.00 [facility] Comment on above: For patients on eltr ombopag therapy, use of Dimension [place] TBIL is not recommended. Chloride [Moles/Vol] 105 mmol/L 98-107 [facility] Eosinophils/100 WBC (Bld) 1.7 % 0-5 [facility] Glucose [Mass/Vol] 133 mg/dL 74-106 [facility] Comment on above: Fasting Glucose resu lt greater than or equal to 126 mg/dL suggests DIABETES MELLITUS per A.D.A. criteria. Neutrophils (Bld) [#/Vol] 8.0 10*3/uL 2.0-7.7 [facility] Neutrophils/100 WBC (Bld) 78.3 % 47-70 [facility] Potassium [Moles/Vol] 4.2 mmol/L 3.5-5.1 [facility] Protein [Mass/Vol] 6.3 g/dL 6.4-8.2 [facility] Sodium [Moles/Vol] 139 mmol/L 136-145 [facility] WBC (Bld) [#/Vol] 10.2 10*3/uL 4.4-11.0 [facility] Bilirubin Test strip Ql (U)O rdered By: Dr. Roberts on 01-04-2023 Bilirubin Ql (U) Negative Negative [facility] Blood erythrocytes count (nu mber/volume)Ordered By: Dr. Roberts on 01-04-2023 RBC (Bld) [#/Vol] 5.09 10*6/uL 4.6-6.2 [facility] Blood hemoglobin measurement (mass/volume)Ordered By: Dr. Roberts on 01-04-2023 Hemoglobin (Bld) [Mass/Vol] 13.5 g/dL 13.0-16. 5 [facility] Blood lymphocytes/100 leukoc ytesOrdered By: Dr. Roberts on 01-04-2023 Lymphocytes/100 WBC (Bld) 12.8 % 19-41 [facility] Blood monocytes/100 leukocyt esOrdered By: Dr. Roberts on 01-04-2023 Monocytes/100 WBC (Bld) 5.9 % 0-[address] [facility] Blood platelet mean volumeOr dered By: Dr. Roberts on 01-04-2023 Platelet mean volume (Bld) [Entitic vol] 8.7 fL 6.2-12.0 [facility] CO2 (BldA) [Partial pressure ]Ordered By: Dr. Aly on 01-04-2023 CO2 (Bld) [Partial pressure] 33.9 mm[Hg] 35-45 [facility] Culture, urineOrdered By: Eddie Roberts on 01-04-2023 Bacteria identified Cx Nom (U) Positive [facility] Determination of erythrocyte mean corpuscular volume (MCV)Ordered By: Dr. Roberts on 01-04-2023 MCV (RBC) [Entitic vol] 82.1 fL 80-94 [facility] Direct bilirubinOrdered By: Dr. Roberts on 01-04-2023 Bilirubin.direct [Mass/Vol] 0.20 mg/dL 0.00-0.3 0 [facility] Hematocrit Auto (Bld) [Volum e fraction]Ordered By: Dr. Roberts on 01-04-2023 Hematocrit (Bld) [Volume fraction] 41.8 % 40-54 [facility] INR in Blood by Coagulation assayOrdered By: Dr. Roberts on 01-04-2023 INR Coag (Bld) [Relative time] 3.1 {INR} [facility] Ketones Test strip Ql (U)Ord ered By: Dr. Roberts on 01-04-2023 Ketones Ql (U) Negative Negative [facility] Laboratory - Chemistry and C hemistry - challengeOrdered By: Karen Aly on 01-04-2023 Cobalamin (Vitamin B12) [Mass/Vol] 260 pg/mL 211-911 [facility] Laboratory - Chemistry and C hemistry - challengeOrdered By: Dr. Aly on 01-04-2023 Magnesium [Mass/Vol] 1.8 mg/dL 1.6-2.6 [facility] Laboratory - Chemistry and C hemistry - challengeOrdered By: Dr. Roberts on 01-04-2023 ALP [Catalytic activity/Vol] 102 U/L 45-117 [facility] ALT [Catalytic activity/Vol] 18 U/L 16-61 [facility] CO2 [Moles/Vol] 25.0 mmol/L 21.0-32.0 [facility] Globulin (S) [Mass/Vol] 3.2 g/dL 2.2-4.2 [facility] Urea nitrogen/Creatinine [Mass ratio] 18.7 mg/mg 10-20 [facility] Laboratory - CoagulationOrde red By: Dr. Roberts on 01-04-2023 PT Coag (PPP) [Time] 32.6 s 11.7-14.9 [facility] Laboratory - Hematology and Cell countsOrdered By: Dr. Roberts on 01-04-2023 Erythrocyte distribution width (RBC) [Entitic vol] 42.3 fL 35.1-43.9 [facility] Erythrocyte distribution width (RBC) [Ratio] 14.2 % 11.6-14.6 [facility] Immature granulocytes/100 WBC (Bld) 0.900 % 0.0-0.9 [facility] Comment on above: IG% - Immature Granu locytes (promyelocytes, myelocytes and metamyelocytes) > 1% indicates that a LEFT SHIFT is Present. MCH (RBC) [Entitic mass] 26.5 pg 27.0-32.0 [facility] Nucleated RBC/100 WBC (Bld) [Ratio] 0 % 0-5 [facility] Laboratory - Microbiology an d Antimicrobial susceptibilityOrdered By: Maggy Roberts on 01-04-2023 Bacteria identified Cx Nom (Bld) No growth in 5 days. [facility] MCHC Auto (RBC) [Mass/Vol]Or dered By: Dr. Roberts on 01-04-2023 MCHC (RBC) [Mass/Vol] 32.3 g/dL 32-36 [facility] Mucus LM Ql (Urine sed)Order ed By: Dr. Roberts on 01-04-2023 Mucus Ql (Urine sed) 0 SEEN /hpf [facility] Nitrite Test strip Ql (U)Ord ered By: Dr. Roberts on 01-04-2023 Nitrite Ql (U) Negative Negative [facility] No Panel InformationOrdered By: Dr. Aly on 01-04-2023 Blood Gas Oxygen Percent 21 [facility] Blood Gas Sample Site R Brach [facility] Blood Gas Specimen Type ART [facility] Blood Gas Total CO2 25 mmol/L [facility] Oxygen Delivery Device Room Air [facility] No Panel InformationOrdered By: Karen Aly on 01-04-2023 ART [facility] R Brach [facility] Room Air [facility] 21 [facility] 25 mmol/L [facility] 1.8 mg/dL 1.6-2.6 [facility] 260 pg/mL 211-911 [facility] No Panel InformationOrdered By: Maggy Roberts on 01-04-2023 No growth in 5 days. [facility] 7 pg/mL 3.0-78.0 [facility] No Panel InformationOrdered By: Dr. Roberts on 01-04-2023 Estimated Creatinine Clearance Calc 58.64 ml/min [facility] Estimated GFR (MDRD) Amer 74 mL/min >60 [facility] Comment on above: GFR Calc Estimated GFR (MDRD) Non-Af Amer 61 mL/min >60 [facility] Comment on above: Non- GFR Calc Troponin I High Sensitivity 7 pg/mL 3.0-78.0 [facility] Comment on above: Please Note: New Thania t Units and Gender Specific Reference Ranges. For more information see Policy Stat Procedure [place] High Sensitivity Troponin (TNIH) and attachments. Oxygen (BldA) [Partial press ure]Ordered By: Dr. Aly on 01-04-2023 Oxygen (Bld) [Partial pressure] 78 mmHG 75-100 [facility] Platelets bldOrdered By: Dr. Roberts on 01-04-2023 Platelets (Bld) [#/Vol] 228 10*3/uL 150-450 [facility] Protein Test strip Ql (U)Ord ered By: Dr. Roberts on 01-04-2023 Protein Ql (U) 15 mg/dl Negative [facility] Serum Treponema species anti body detectionOrdered By: Karen Aly on 01-04-2023 Treponema sp Ab Ql (S) Non-Reactive [facility] Serum or plasma albumin antoine urement (mass/volume)Ordered By: Dr. Roberts on 01-04-2023 Albumin [Mass/Vol] 3.1 g/dL 3.2-5.0 [facility] Serum or plasma calcium antoine urement (mass/volume)Ordered By: Dr. Roberts on 01-04-2023 Calcium [Mass/Vol] 8.6 mg/dL 8.5-10.1 [facility] Serum or plasma creatinine m easurement (mass/volume)Ordered By: Dr. Roberts on 01-04-2023 Creatinine [Mass/Vol] 1.23 mg/dL 0.70-1.30 [facility] Comment on above: The validity of the calculated GFR & GFRAA in patients over 70 years has not been determined. Clinical correlation is essential. Serum or plasma folate measu rement (mass/volume)Ordered By: Karen Aly on 01-04-2023 Folate [Mass/Vol] 4.40 ng/mL 3.1-55.4 [facility] Serum or plasma urea nitroge n measurement (mass/volume)Ordered By: Dr. Roberts on 01-04-2023 Urea nitrogen [Mass/Vol] 23 mg/dL 7-18 [facility] Serum procalcitonin measurem entOrdered By: Karen Aly on 01-04-2023 Procalcitonin [Mass/Vol] ng/mL 0.00-0.09 [facility] Comment on above: A procalcitonin [...] Ql (Urine sed) 0-5 SEEN /hpf 0-5 [facility] Thin prep Papanicolaou smear with manual screeningOrdered By: Dr. Roberts on 01-04-2023 Thin prep Papanicolaou smear with manual screening 13 U/L 15-37 [facility] Thin prep Papanicolaou smear with manual screening 9 5-15 [facility] Urine blood detectionOrdered By: Dr. Roberts on 01-04-2023 RBC Ql (U) 10 /ul Negative [facility] RBC Ql (U) 0-5 SEEN /hpf 0-5 [facility] Urine clarityOrdered By: Dr. Roberts on 01-04-2023 Clarity (U) Sl. Cloudy Clear [facility] Urine color determinationOrd ered By: Dr. Roberts on 01-04-2023 Color (U) Yellow Yellow [facility] Urine glucose detectionOrder ed By: Dr. Roberts on 01-04-2023 Glucose Ql (U) 100 mg/dl Normal [facility] Urine leukocyte esterase det ection by dipstickOrdered By: Dr. Roberts on 01-04-2023 Leukocyte esterase Test strip Ql (U) Negative Negative [facility] Urine pHOrdered By: Dr. Yaya gallo on 01-04-2023 pH (U) 6.0 [pH] 5.0 - 8.0 [facility] Urine sediment bacteria coun t by microscopy (number/high power field)Ordered By: Dr. Roberts on 01-04-2023 Bacteria LM.HPF (Urine sed) [#/Area] 0 /[HPF] None Seen [facility] Urine specific gravity measu rementOrdered By: Dr. Roberts on 01-04-2023 Specific gravity (U) [Rel density] 1.020 1.002-1.03 0 [facility] Urobilinogen Auto test strip Ql (U)Ordered By: Dr. Roberts on 01-04-2023 Urobilinogen Ql (U) 4 mg/dl Normal [facility] pH measurementOrdered By: Dr Jose Aly on 01-04-2023 pH (Unsp spec) 7.45 [pH] 7.35-7.45 [facility] Absolute lymphocyte counton 07-11-2022 Lymphocytes Auto (Unsp spec) [#/Vol] 1.98 10*3/uL 0.83-4.51 [facility] Work Phone: Basophil percentageon 2021 Basophils/100 WBC (Bld) 0.6 % 0-1 [facility] Work Phone: Bilirubin [Mass/Vol] 0.90 mg/dL 0.20-1.00 [facility] Work Phone: Comment on above: For patients on eltr ombopag therapy, use of Dimension [place] TBIL is not recommended. Chloride [Moles/Vol] 105 mmol/L 98-107 [facility] Work Phone: Cholesterol [Mass/Vol] 102 mg/dL <200 [facility] Work Phone: Comment on above: <200 mg/dL Desirable 200-240 mg/dL Borderline >240 mg/dL High Risk Eosinophils/100 WBC (Bld) 4.1 % 0-5 [facility] Work Phone: Glucose [Mass/Vol] 103 mg/dL 74-106 [facility] Work Phone: Comment on above: Fasting Glucose resu lt from 100 to 125 mg/dL suggests IMPAIRED HOMEOSTASIS per A.D.A. criteria. Neutrophils (Bld) [#/Vol] 5.2 10*3/uL 2.0-7.7 [facility] Work Phone: Neutrophils/100 WBC (Bld) 63.5 % 47-70 [facility] Work Phone: Potassium [Moles/Vol] 3.5 mmol/L 3.5-5.1 [facility] Work Phone: Protein [Mass/Vol] 5.9 g/dL 6.4-8.2 [facility] Work Phone: Sodium [Moles/Vol] 138 mmol/L 136-145 [facility] Work Phone: Triglyceride [Mass/Vol] 124 mg/dL <199 [facility] Work Phone: Comment on above: The drugs N-Acetylcy steine and Metamizole may falsely depress this assay.Serum Triglycerides Reference Interval Normal <150 mg/dL Borderline high 150 - 199 mg/dL High 200 - 499 mg/dL Very High > or = 500 mg/dL WBC (Bld) [#/Vol] 8.2 10*3/uL 4.4-11.0 [facility] Work Phone: Blood erythrocytes count (nu mber/volume)on 07-11-2022 RBC (Bld) [#/Vol] 4.75 10*6/uL 4.6-6.2 [facility] Work Phone: Blood hemoglobin measurement (mass/volume)on 07-11-2022 Hemoglobin (Bld) [Mass/Vol] 12.7 g/dL 13.0-16. 5 [facility] Work Phone: Blood lymphocytes/100 leukoc yteson 07-11-2022 Lymphocytes/100 WBC (Bld) 24.1 % 19-41 [facility] Work Phone: Blood monocytes/100 leukocyt eson 07-11-2022 Monocytes/100 WBC (Bld) 6.8 % 0-10 [facility] Work Phone: Blood platelet mean volumeon 07-11-2022 Platelet mean volume (Bld) [Entitic vol] 9.2 fL 6.2-12.0 [facility] Work Phone: Determination of erythrocyte mean corpuscular volume (MCV)on 07-11-2022 MCV (RBC) [Entitic vol] 82.7 fL 80-94 [facility] Work Phone: Glucose Glucometer (BldC) [M ass/Vol]on 07-11-2022 Glucose [Mass/Vol] 149 mg/dL 74-106 [facility] Work Phone: Comment on above: MANAGEMENT OF PATIEN T CARE PER NURSING PROTOCOL Hematocrit Auto (Bld) [Volum e fraction]on 07-11-2022 Hematocrit (Bld) [Volume fraction] 39.3 % 40-54 [facility] Work Phone: INR in Blood by Coagulation assayon 07-11-2022 INR Coag (Bld) [Relative time] 2.1 {INR} [facility] Work Phone: Laboratory - Chemistry and C hemistry - challengeon 07-11-2022 ALP [Catalytic activity/Vol] 106 U/L 45-117 [facility] Work Phone: ALT [Catalytic activity/Vol] 22 U/L 16-61 [facility] Work Phone: CO2 [Moles/Vol] 25.0 mmol/L 21.0-32.0 [facility] Work Phone: Globulin (S) [Mass/Vol] 2.9 g/dL 2.2-4.2 [facility] Work Phone: Magnesium [Mass/Vol] 1.9 mg/dL 1.6-2.6 [facility] Work Phone: Urea nitrogen/Creatinine [Mass ratio] 17.7 mg/mg 10-20 [facility] Work Phone: Laboratory - Coagulationon 09-11-2021 PT Coag (PPP) [Time] 23.6 s 11.7-14.9 [facility] Work Phone: Laboratory - Hematology and Cell countson 07-11-2022 Erythrocyte distribution width (RBC) [Entitic vol] 44.0 fL 35.1-43.9 [facility] Work Phone: Erythrocyte distribution width (RBC) [Ratio] 14.6 % 11.6-14.6 [facility] Work Phone: Immature granulocytes/100 WBC (Bld) 0.900 % 0.0-0.9 [facility] Work Phone: Comment on above: IG% - Immature Granu locytes (promyelocytes, myelocytes and metamyelocytes) > 1% indicates that a LEFT SHIFT is Present. MCH (RBC) [Entitic mass] 26.7 pg 27.0-32.0 [facility] Work Phone: Nucleated RBC/100 WBC (Bld) [Ratio] 0 % 0-5 [facility] Work Phone: MCHC Auto (RBC) [Mass/Vol]on 07-11-2022 MCHC (RBC) [Mass/Vol] 32.3 g/dL 32-36 [facility] Work Phone: No Panel Informationon 07-11 Estimated Creatinine Clearance Calc 64.82 ml/min [facility] Work Phone: Estimated GFR (MDRD) Amer 81 mL/min >60 [facility] Work Phone: Comment on above: GFR Calc Estimated GFR (MDRD) Non-Af Amer 67 mL/min >60 [facility] Work Phone: Comment on above: Non- GFR Calc Platelets bldon 07-11-2022 Platelets (Bld) [#/Vol] 200 10*3/uL 150-450 [facility] Work Phone: Serum or plasma albumin antoine urement (mass/volume)on 07-11-2022 Albumin [Mass/Vol] 3.0 g/dL 3.2-5.0 [facility] Work Phone: Serum or plasma albumin/glob ulin mass ratioon 07-11-2022 Albumin/Globulin [Mass ratio] 1.0 {ratio} 0.9-2.4 [facility] Work Phone: Serum or plasma calcium antoine urement (mass/volume)on 07-11-2022 Calcium [Mass/Vol] 8.6 mg/dL 8.5-10.1 [facility] Work Phone: Serum or plasma cholesterol in HDL measurement (mass/volume)on 07-11-2022 Cholesterol in HDL [Mass/Vol] 36 mg/dL >40 [facility] Work Phone: Comment on above: The drugs N-Acetylcy steine and Metamizole may falsely depress this assay. Reference Range HDL <40 mg/dL Low HDL Cholesterol HDL >or= 60 mg/dL High HDL Cholesterol Serum or plasma cholesterol in VLDL measurement (mass/volume)on 07-11-2022 Cholesterol in VLDL [Mass/Vol] 25 mg/dL 5-40 [facility] Work Phone: Serum or plasma creatinine m easurement (mass/volume)on 07-11-2022 Creatinine [Mass/Vol] 1.13 mg/dL 0.70-1.30 [facility] Work Phone: Comment on above: The validity of the calculated GFR & GFRAA in patients over 70 years has not been determined. Clinical correlation is essential. Serum or plasma low density lipoprotein (LDL) cholesterol measurement (mass/volume)on 07-11-2022 Cholesterol in LDL [Mass/Vol] 41 mg/dL 0-130 [facility] Work Phone: Serum or plasma urea nitroge n measurement (mass/volume)on 07-11-2022 Urea nitrogen [Mass/Vol] 20 mg/dL 7-18 [facility] Work Phone: Thin prep Papanicolaou smear with manual screeningon 07-11-2022 Thin prep Papanicolaou smear with manual screening 23 U/L 15-37 [facility] Work Phone: Thin prep Papanicolaou smear with manual screening 8 5-15 [facility] Work Phone: No Panel Informationon 07-10 Troponin I High Sensitivity 103 pg/mL 3.0-78.0 [facility] Work Phone: Comment on above: Please Note: New Thania t Units and Gender Specific Reference Ranges. For more information see Policy Stat Procedure [place] High Sensitivity Troponin (TNIH) and attachments. Thyroid Stimulating Hormone (TSH) 1.03 uIU/mL 0.358-3.74 [facility] Work Phone: Basophil percentageon 2021 Basophil percentage 0-5 SEEN /hpf 0-5 [facility] Work Phone: Bilirubin Test strip Ql (U)o n 07-09-2022 Bilirubin Ql (U) Negative Negative [facility] Work Phone: Hyaline casts LM.LPF (Urine sed) [#/Area]on 07-09-2022 Hyaline casts (Urine sed) [#/Area] 0 /[LPF] 0-5 [facility] Work Phone: Ketones Test strip Ql (U)on 07-09-2022 Ketones Ql (U) 5 mg/dl Negative [facility] Work Phone: Mucus LM Ql (Urine sed)on Mucus Ql (Urine sed) 1+ /hpf [facility] Work Phone: Nitrite Test strip Ql (U)on 07-09-2022 Nitrite Ql (U) Negative Negative [facility] Work Phone: Protein Test strip Ql (U)on 07-09-2022 Protein Ql (U) 30 mg/dl Negative [facility] Work Phone: Squamous epithelial cells de tection in urine sediment by light microscopyon 07-09-2022 Epithelial cells.squamous LM Ql (Urine sed) 0 SEEN /hpf 0-5 [facility] Work Phone: Urine blood detectionon 06-15 RBC Ql (U) 25 /ul Negative [facility] Work Phone: RBC Ql (U) 0-5 SEEN /hpf 0-5 [facility] Work Phone: Urine clarityon 07-09-2022 Clarity (U) Clear Clear [facility] Work Phone: Urine color determinationon 07-09-2022 Color (U) Yellow Yellow [facility] Work Phone: Urine glucose detectionon Glucose Ql (U) Normal mg/dl Normal [facility] Work Phone: Urine leukocyte esterase det ection by dipstickon 07-09-2022 Leukocyte esterase Test strip Ql (U) Negative Negative [facility] Work Phone: Urine pHon 07-09-2022 pH (U) 5.0 [pH] 5.0 - 8.0 [facility] Work Phone: Urine sediment bacteria coun t by microscopy (number/high power field)on 07-09-2022 Bacteria LM.HPF (Urine sed) [#/Area] 1 /[HPF] None Seen [facility] Work Phone: Urine specific gravity measu rementon 07-09-2022 Specific gravity (U) [Rel density] 1.025 1.002-1.03 0 [facility] Work Phone: Urobilinogen Auto test strip Ql (U)on 07-09-2022 Urobilinogen Ql (U) 1 mg/dl Normal [facility] Work Phone: INR in Blood by Coagulation assayon 03-07-2022 INR Coag (Bld) [Relative time] 2.9 {INR} [facility] Laboratory - Coagulationon 0 03-07-2022 PT Coag (PPP) [Time] 30.2 s 11.7-14.9 [facility] Work Phone: [phone] Absolute lymphocyte counton 03-02-2022 Lymphocytes Auto (Unsp spec) [#/Vol] 1.26 10*3/uL 0.83-4.51 [facility] Work Phone: Basophil percentageon 2021 Basophil percentage 0 SEEN /hpf 0-5 [facility] Work Phone: Basophils/100 WBC (Bld) 0.4 % 0-1 [facility] Work Phone: [phone] Chloride [Moles/Vol] 105 mmol/L 98-107 [facility] Work Phone: [phone] Eosinophils/100 WBC (Bld) 2.5 % 0-5 [facility] Work Phone: Glucose [Mass/Vol] 158 mg/dL 74-106 [facility] Work Phone: Comment on above: Fasting Glucose resu lt greater than or equal to 126 mg/dL suggests DIABETES MELLITUS per A.D.A. criteria. Neutrophils (Bld) [#/Vol] 8.8 10*3/uL 2.0-7.7 [facility] Work Phone: Neutrophils/100 WBC (Bld) 78.8 % 47-70 [facility] Work Phone: Potassium [Moles/Vol] 4.2 mmol/L 3.5-5.1 [facility] Work Phone: Sodium [Moles/Vol] 138 mmol/L 136-145 [facility] Work Phone: [phone] WBC (Bld) [#/Vol] 11.2 10*3/uL 4.4-11.0 [facility] Work Phone: Bilirubin Test strip Ql (U)o n 03-02-2022 Bilirubin Ql (U) Negative Negative [facility] Work Phone: Blood erythrocytes count (nu mber/volume)on 03-02-2022 RBC (Bld) [#/Vol] 5.15 10*6/uL 4.6-6.2 [facility] Work Phone: Blood hemoglobin measurement (mass/volume)on 03-02-2022 Hemoglobin (Bld) [Mass/Vol] 13.8 g/dL 13.0-16. 5 [facility] Work Phone: Blood lymphocytes/100 leukoc yteson 03-02-2022 Lymphocytes/100 WBC (Bld) 11.2 % 19-41 [facility] Work Phone: Blood monocytes/100 leukocyt eson 03-02-2022 Monocytes/100 WBC (Bld) 5.7 % 0-10 [facility] Work Phone: Blood platelet mean volumeon 03-02-2022 Platelet mean volume (Bld) [Entitic vol] 9.0 fL 6.2-12.0 [facility] Work Phone: Determination of erythrocyte mean corpuscular volume (MCV)on 03-02-2022 MCV (RBC) [Entitic vol] 82.3 fL 80-94 [facility] Work Phone: Glucose Glucometer (BldC) [M ass/Vol]on 03-02-2022 Glucose [Mass/Vol] 158 mg/dL 74-106 [facility] Work Phone: Comment on above: MANAGEMENT OF PATIEN T CARE PER NURSING PROTOCOL Hematocrit Auto (Bld) [Volum e fraction]on 03-02-2022 Hematocrit (Bld) [Volume fraction] 42.4 % 40-54 [facility] Work Phone: Hyaline casts LM.LPF (Urine sed) [#/Area]on 03-02-2022 Hyaline casts (Urine sed) [#/Area] 0 /[LPF] 0-5 [facility] Work Phone: INR in Blood by Coagulation assayon 03-02-2022 INR Coag (Bld) [Relative time] 4.4 {INR} [facility] Work Phone: Comment on above: CRITICAL VALUE VERIF IED. CALLED TO [id number] Morris Ma.RESULTS READ BACK BY SAME . Ketones Test strip Ql (U)on 03-02-2022 Ketones Ql (U) 5 mg/dl Negative [facility] Work Phone: Laboratory - Chemistry and C hemistry - challengeon 03-02-2022 CO2 [Moles/Vol] 23.0 mmol/L 21.0-32.0 [facility] Work Phone: Urea nitrogen/Creatinine [Mass ratio] 16.9 mg/mg 10-20 [facility] Work Phone: Laboratory - Coagulationon 0 03-02-2022 PT Coag (PPP) [Time] 41.4 s 11.7-14.9 [facility] Work Phone: Laboratory - Hematology and Cell countson 03-02-2022 Erythrocyte distribution width (RBC) [Entitic vol] 41.4 fL 35.1-43.9 [facility] Work Phone: Erythrocyte distribution width (RBC) [Ratio] 14.0 % 11.6-14.6 [facility] Work Phone: Immature granulocytes/100 WBC (Bld) 1.400 % 0.0-0.9 [facility] Work Phone: Comment on above: IG% - Immature Granu locytes (promyelocytes, myelocytes and metamyelocytes) > 1% indicates that a LEFT SHIFT is Present. MCH (RBC) [Entitic mass] 26.8 pg 27.0-32.0 [facility] Work Phone: Nucleated RBC/100 WBC (Bld) [Ratio] 0 % 0-5 [facility] Work Phone: MCHC Auto (RBC) [Mass/Vol]on 03-02-2022 MCHC (RBC) [Mass/Vol] 32.5 g/dL 32-36 [facility] Work Phone: Mucus LM Ql (Urine sed)on Mucus Ql (Urine sed) 3+ /hpf [facility] Work Phone: Nitrite Test strip Ql (U)on 03-02-2022 Nitrite Ql (U) Negative Negative [facility] Work Phone: No Panel Informationon 03-02 Estimated Creatinine Clearance Calc 49.49 ml/min [facility] Work Phone: Estimated GFR (MDRD) Amer 60 mL/min >60 [facility] Work Phone: Comment on above: GFR Calc Estimated GFR (MDRD) Non-Af Amer 49 mL/min >60 [facility] Work Phone: Comment on above: Non- GFR Calc Troponin I High Sensitivity 11 pg/mL 3.0-78.0 [facility] Work Phone: Comment on above: Please Note: New Thania t Units and Gender Specific Reference Ranges. For more information see Policy Stat Procedure [place] High Sensitivity Troponin (TNIH) and attachments. Platelets bldon 03-02-2022 Platelets (Bld) [#/Vol] 269 10*3/uL 150-450 [facility] Work Phone: Protein Test strip Ql (U)on 03-02-2022 Protein Ql (U) 30 mg/dl Negative [facility] Work Phone: Serum or plasma calcium antoine urement (mass/volume)on 03-02-2022 Calcium [Mass/Vol] 9.4 mg/dL 8.5-10.1 [facility] Work Phone: Serum or plasma creatinine m easurement (mass/volume)on 03-02-2022 Creatinine [Mass/Vol] 1.48 mg/dL 0.70-1.30 [facility] Work Phone: Comment on above: The validity of the calculated GFR & GFRAA in patients over 70 years has not been determined. Clinical correlation is essential. Serum or plasma urea nitroge n measurement (mass/volume)on 03-02-2022 Urea nitrogen [Mass/Vol] 25 mg/dL 7-18 [facility] Work Phone: Squamous epithelial cells de tection in urine sediment by light microscopyon 03-02-2022 Epithelial cells.squamous LM Ql (Urine sed) 0-5 SEEN /hpf 0-5 [facility] Work Phone: Thin prep Papanicolaou smear with manual screeningon 03-02-2022 Thin prep Papanicolaou smear with manual screening 10 5-15 [facility] Work Phone: Urine blood detectionon 02-12 RBC Ql (U) 10 /ul Negative [facility] Work Phone: RBC Ql (U) 0-5 SEEN /hpf 0-5 [facility] Work Phone: Urine clarityon 03-02-2022 Clarity (U) Clear Clear [facility] Work Phone: Urine color determinationon 03-02-2022 Color (U) Yellow Yellow [facility] Work Phone: Urine glucose detectionon Glucose Ql (U) 50 mg/dl Normal [facility] Work Phone: Urine leukocyte esterase det ection by dipstickon 03-02-2022 Leukocyte esterase Test strip Ql (U) Negative Negative [facility] Work Phone: Urine pHon 03-02-2022 pH (U) 5.0 [pH] 5.0 - 8.0 [facility] Work Phone: Urine sediment bacteria coun t by microscopy (number/high power field)on 03-02-2022 Bacteria LM.HPF (Urine sed) [#/Area] 2 /[HPF] None Seen [facility] Work Phone: Urine specific gravity measu rementon 03-02-2022 Specific gravity (U) [Rel density] 1.025 1.002-1.03 0 [facility] Work Phone: Urobilinogen Auto test strip Ql (U)on 03-02-2022 Urobilinogen Ql (U) Normal mg/dl Normal [facility] Work Phone: ECHOon 01-09-2022 [facility] CNPMaggie 01-02-2022 KOSTASN Telephone (VICTORIANO) KIRILL Irene ([id number]) 1945 M Date Time Provider Department 01/02/22 JUSTINA MONIQUE During your visit today, we recorded the following information about you: Justina Garcia LPN 01/02/2022 7:43 AM Signed ----- Message from Justina Monique APRN.CASE MANAGEMENT SOCIAL WORKER sent at 01/02/2022 7:38 AM EDT ----- [...] Date Reviewed: 01/01/2022 Reviewed by: Justina Monique APRN.CASE MANAGEMENT SOCIAL WORKER - Fully Assessed Reason for Visit: Results [...] mouth once daily. - blood sugar diagnostic ([id number] ULTRA TEST) test strip Test blood sugar(s) [...] Encounter Status:Closed by JUSTINA GARCIA on 01/02/22 [facility] CBC W Auto Differential pane l (Bld)on 01-01-2022 Abs Immature Gran 0.15 k/uL High <0.10 k/uL [facility] Basophils (Bld) [#/Vol] 0.06 10*3/uL <0.11 k/uL [facility] Basophils/100 WBC (Bld) 0.5 % C [facility] Differential cell count method Nom (Bld) Auto [facility] Eosinophils (Bld) [#/Vol] 0.39 10*3/uL <0.46 k/ uL [facility] Eosinophils/100 WBC (Bld) 3.1 % [facility] Erythrocyte distribution width (RBC) [Ratio] 14.5 % 11.5 - 15.0 % [facility] Hematocrit (Bld) [Volume fraction] 46.6 % 39.0 - 51.0 % [facility] Hemoglobin (Bld) [Mass/Vol] 14.5 g/dL 13.0 - 17.0 g/dL [facility] Immature Gran % 1.2 % [facility] Lymphocytes (Bld) [#/Vol] 1.81 10*3/uL 1. 00 - 4.00 k/uL [facility] Lymphocytes/100 WBC (Bld) 14.5 % [facility] MCH (RBC) [Entitic mass] 26.6 pg 26. 0 - 34.0 pg [facility] MCHC (RBC) [Mass/Vol] 31.1 g/dL 30.5 - 36.0 g/dL [facility] MCV (RBC) [Entitic vol] 85.3 fL 80.0 - 100.0 fL [facility] Monocytes (Bld) [#/Vol] 0.86 10*3/uL <0.87 k/uL [facility] Monocytes/100 WBC (Bld) 6.9 % [facility] Neutrophils (Bld) [#/Vol] 9.20 10*3/uL High 1. 45 - 7.50 k/uL [facility] Neutrophils/100 WBC (Bld) 73.8 % [facility] Nucleated RBC (Bld) [#/Vol] 10*3/uL <0.01 k/ uL [facility] Nucleated RBC/100 WBC (Bld) [Ratio] 0.0 /100 WBC [facility] Platelet mean volume (Bld) [Entitic vol] 9.7 fL 9.0 - 12.7 fL [facility] Platelets (Bld) [#/Vol] 287 10*3/uL 150 - 400 k/uL [facility] RBC (Bld) [#/Vol] 5.46 10*6/uL 4.20 - 6.00 m/uL [facility] WBC (Bld) [#/Vol] 12.47 10*3/uL High 3.70 - 11.00 k/uL [facility] Comprehensive metabolic 2000 panelon 01-01-2022 Albumin [Mass/Vol] 4.2 g/dL 3.9 - 4.9 g/dL [facility] ALP [Catalytic activity/Vol] 96 U/L 38 - 113 U/L [facility] ALT [Catalytic activity/Vol] 29 U/L 10 - 54 U/L [facility] Anion gap [Moles/Vol] 12 mmol/L 9 - 18 mmol/L [facility] AST [Catalytic activity/Vol] 20 U/L 14 - 40 U/L [facility] Bilirubin [Mass/Vol] 0.6 mg/dL 0.2 - 1 .3 mg/dL [facility] Calcium [Mass/Vol] 9.4 mg/dL 8.5 - 10. 2 mg/dL [facility] Chloride [Moles/Vol] 101 mmol/L 97 - 10 5 mmol/L [facility] CO2 [Moles/Vol] 25 mmol/L 22 - 30 mmol/L [facility] Creatinine [Mass/Vol] 1.20 mg/dL 0.73 - 1.22 mg/dL [facility] Estimated Glomerular Filtration Rate 63 mL/min/1.73m >=60 mL/min/1.7 3m [facility] Glucose [Mass/Vol] 118 mg/dL High 74 - 99 mg/dL [facility] Potassium [Moles/Vol] 4.4 mmol/L 3.7 - 5.1 mmol/L [facility] Protein [Mass/Vol] 6.6 g/dL 6.3 - 8.0 g/dL [facility] Sodium [Moles/Vol] 138 mmol/L 136 - 144 mmol/L [facility] Urea nitrogen [Mass/Vol] 15 mg/dL 9 - 24 mg/dL [facility] PSA/PROSTSPECAG SCRNon 01-01 Prostate specific Ag [Mass/Vol] 1.75 ng/mL <2.60 ng/mL [facility] UA DIP, URINE (POC)on 2021 BILIRUBIN UA (POCT) Negative Negative [facility] CLARITY UA (POCT) Clear [facility] COLOR UA (POCT) Dark yellow [facility] GLUCOSE UA (POCT) 100 mg/dL Abnormal Negative mg/dL [facility] HEMOGLOBIN/BLOOD UA (POCT) Trace-intact Abnormal Negativ e [facility] KETONE UA (POCT) Negative Negative mg/dL [facility] LEUKOCYTES UA (POCT) Negative Negative [facility] NITRITE UA (POCT) Negative Negative [facility] PH UA (POCT) 5.5 4.5 - 8.0 [facility] Protein Ql (U) 30 mg/dL Abnormal Negative mg/dL [facility] SPECIFIC GRAVITY UA (POCT) >=1.030 1 .005 - 1.030 [facility] UROBILINOGEN UA (POCT) 1.0 E.U./dL Lanette l E.U./dL [facility] VITAMIN B12 BLOODon 01-02-20 Cobalamin (Vitamin B12) [Mass/Vol] 377 pg/mL 232-1,245 pg/mL [facility] Absolute lymphocyte counton 12-29-2021 Lymphocytes Auto (Unsp spec) [#/Vol] 1.56 10*3/uL 0.83-4.51 [facility] Work Phone: BCIDon 12-29-2021 Acinetobacter justen-baumanii complex Not detected Normal Not Detected [facility] ([place]) Comment on above: Performed By: #### B JIN #### [place] [address] Bacteroides fragilis Not detected Normal Not Detected [facility] ([place] Comment on above: Performed By: #### B JIN #### [place] [address] BCID Comment See Comment Normal [facility] ([place] Comment on above: Result Comment: Anti microbial [...] follow. Performed By: #### B JIN #### [place] [address] Kellie albicans Not detected Normal Not Detected [facility] ([place] Comment on above: Performed By: #### B JIN #### [place] [address] Kellie auris Not detected Normal Not Detected [facility] ([place]) Comment on above: Performed By: #### B JIN #### [facility] [address] [place] [address] Kellie glabrata Not detected Normal Not Detected [facility] ([place]) Comment on above: Performed By: #### B JIN #### [facility] [address] [place] [address] Kellie krusei Not detected Normal Not Detected [facility] ([place] Comment on above: Performed By: #### B JIN #### [facility] [address] [place] [address] Kellie parapsilosis Not detected Normal Not Detected [facility] ([place] Comment on above: Performed By: #### B JIN #### [place] [address] Kellie tropicalis Not detected Normal Not Detected [facility] ([place] Comment on above: Performed By: #### B JIN #### [place] [address] Cryptococcus neoformans-gattii Not detected Normal Not Detected [facility] ([place] Comment on above: Performed By: #### B JIN #### [place] [address] CTX-M (ESBL) Not Applicable Normal Not Detected [facility] ([place] Comment on above: Performed By: #### B JIN #### [place] [address] E. Coli Not detected Normal Not Detected [facility] ([place] Comment on above: Performed By: #### B JIN #### [facility] [address] [place] [address] Enterobacter cloacae Complex Not detected Normal Not Detected [facility] ([place] Comment on above: Performed By: #### B JIN #### [facility] [address] [place] [address] Enterobacterales Not detected Normal Not Detected [facility] ([place] Comment on above: Performed By: #### B JIN #### [place] [address] Enterococcus faecalis Not detected Normal Not Detected [facility] ([place] Comment on above: Performed By: #### B JIN #### [facility] [address] [place] [phone] Enterococcus faecium Not detected Normal Not Detected [facility] ([place] Comment on above: Performed By: #### B JIN #### [facility] [address] [place] [address] Haemophilus influenzae Not detected Normal Not Detected [facility] ([place] Comment on above: Performed By: #### B JIN #### [facility] [address] [place] [phone] IMP (Carbapenemase) Not Applicable Normal Not Detected [facility] ([place] Comment on above: Performed By: #### B JIN #### [address] [address] Klebsiella aerogenes Not detected Normal Not Detected [facility] ([place] Comment on above: Performed By: #### B JIN #### [address] [address] Klebsiella oxytoca Not detected Normal Not Detected [facility] ([place] Comment on above: Performed By: #### B JIN #### [address] [address] Klebsiella pneumoniae group Not detected Normal Not Detected [facility] ([place] Comment on above: Performed By: #### B JIN #### [facility] [address] [place] [address] KPC (Carbapenemase) Not Applicable Normal Not Detected [facility] ([place] Comment on above: Performed By: #### B JIN #### [facility] [address] [place] [address] Listeria monocytogenes Not detected Normal Not Detected [facility] ([place] Comment on above: Performed By: #### B JIN #### [facility] [address] [place] [address] MCR-1 (Colistin Resistance) Not Applicable Normal Not Detected [facility] ([place] Comment on above: Performed By: #### B JIN #### [facility] [address] [place] [address] Mec A/C Detected Abnormal Not Detected [facility] ([place] Comment on above: Performed By: #### B JIN #### [place] [address] Mec A/C-MREJ (MRSA) Not Applicable Normal Not Detected [facility] ([place] Comment on above: Performed By: #### B JIN #### [facility] [address] [place] [address] NDM (Carbapenemase) Not Applicable Normal Not Detected [facility] ([place] Comment on above: Performed By: #### B JIN #### [place] [address] Neisseria meningitidis (Encapsalated) Not detected Normal Not Detected [facility] ([place] Comment on above: Performed By: #### B JIN #### [place] [address] OXA-48 like (Carbapenemase) Not Applicable Normal Not Detected [facility] ([place] Comment on above: Performed By: #### B JIN #### [place] [address] Proteus Not detected Normal Not Detected [facility] ([place] Comment on above: Performed By: #### B JIN #### [place] [address] Pseudomonas aeruginosa Not detected Normal Not Detected [facility] ([place] Comment on above: Performed By: #### B JIN #### [place] [address] S. agalactiae Org specific cx Ql (Vag fld) Not detected Normal Not Detected [facility] ([place] Comment on above: Performed By: #### B JIN #### [place] [address] Salmonella species Not detected Normal Not Detected [facility] ([place] Comment on above: Performed By: #### B JIN #### [place] [id number] Serratia marcescens Not detected Normal Not Detected [facility] ([place] Comment on above: Performed By: #### B JIN #### [place] [address] Staphylococcus Detected Abnormal Not Detected [facility] ([place] Comment on above: Performed By: #### B JIN #### [place] [id number] Staphylococcus aureus Not detected Normal Not Detected [facility] ([place] Comment on above: Result Comment: If S taphylococcus aureus is "Detected", an Infectious Disease physician consult is required on identification. Performed By: #### B JIN #### [place] [address] Staphylococcus epidermidis Detected Abnormal N ot Detected [facility] ([place] Comment on above: Performed By: #### B JIN #### [place] [address] Staphylococcus lugdunensis Not detected Normal N ot Detected [facility] ([place] Comment on above: Performed By: #### B JIN #### [place] [address] Stenotropomonas maltophilia Not detected Normal Not Detected [facility] ([place] Comment on above: Performed By: #### B JIN #### [place] [address] Streptococcus Not detected Normal Not Detected [facility] ([place] Comment on above: Performed By: #### B JIN #### [place] [id number] Streptococcus pneumoniae Not detected Normal Not Detected [facility] ([place] Comment on above: Performed By: #### B JIN #### [place] [id number] Streptococcus pyogenes Not detected Normal Not Detected [facility] ([place] Comment on above: Performed By: #### B JIN #### [address] [address] Van A/B Not Applicable Normal Not Detected [facility] ([place] Comment on above: Performed By: #### B JIN #### [place] [id number] VIM (Carbapenemase) Not Applicable Normal Not Detected [facility] ([place] Comment on above: Performed By: #### B JIN #### [place] [id number] Basophil percentageon 2021 Basophils/100 WBC (Bld) 0.3 % 0-1 [facility] Work Phone: Chloride [Moles/Vol] 108 mmol/L 98-107 [facility] Work [facility]: Eosinophils/100 WBC (Bld) 3.2 % 0-5 [facility] Work Phone: [phone] Glucose [Mass/Vol] 109 mg/dL 74-106 [facility] Work Phone: Comment on above: Fasting Glucose resu lt from 100 to 125 mg/dL suggests IMPAIRED HOMEOSTASIS per A.D.A. criteria. Neutrophils (Bld) [#/Vol] 6.6 10*3/uL 2.0-7.7 [facility] Work Phone: [phone] Neutrophils/100 WBC (Bld) 70.4 % 47-70 [facility] Work Phone: Potassium [Moles/Vol] 4.1 mmol/L 3.5-5.1 [facility] Work Phone: Sodium [Moles/Vol] 140 mmol/L 136-145 [facility] Work Phone: WBC (Bld) [#/Vol] 9.4 10*3/uL 4.4-11.0 [facility] Work Phone: Blood erythrocytes count (nu mber/volume)on 12-29-2021 RBC (Bld) [#/Vol] 4.61 10*6/uL 4.6-6.2 [facility] Work Phone: Blood hemoglobin measurement (mass/volume)on 12-29-2021 Hemoglobin (Bld) [Mass/Vol] 12.4 g/dL 13.0-16. 5 [facility] Work Phone: Blood lymphocytes/100 leukoc yteson 12-29-2021 Lymphocytes/100 WBC (Bld) 16.7 % 19-41 [facility] Work Phone: Blood monocytes/100 leukocyt eson 12-29-2021 Monocytes/100 WBC (Bld) 8.7 % 0-10 [facility] Work Phone: Blood platelet mean volumeon 12-29-2021 Platelet mean volume (Bld) [Entitic vol] 9.3 fL 6.2-12.0 [facility] Work Phone: Determination of erythrocyte mean corpuscular volume (MCV)on 12-29-2021 MCV (RBC) [Entitic vol] 82.9 fL 80-94 [facility] Work Phone: Glucose Glucometer (BldC) [M ass/Vol]on 12-29-2021 Glucose [Mass/Vol] 129 mg/dL 74-106 [facility] Work Phone: Comment on above: MANAGEMENT OF PATIEN T CARE PER NURSING PROTOCOL Hematocrit Auto (Bld) [Volum e fraction]on 12-29-2021 Hematocrit (Bld) [Volume fraction] 38.2 % 40-54 [facility] Work Phone: Laboratory - Chemistry and C hemistry - challengeon 12-29-2021 CO2 [Moles/Vol] 27.0 mmol/L 21.0-32.0 [facility] Work Phone: Urea nitrogen/Creatinine [Mass ratio] 16.5 mg/mg 10-20 [facility] Work Phone: Laboratory - Hematology and Cell countson 12-29-2021 Erythrocyte distribution width (RBC) [Entitic vol] 42.5 fL 35.1-43.9 [facility] Work Phone: Erythrocyte distribution width (RBC) [Ratio] 14.2 % 11.6-14.6 [facility] Work Phone: Immature granulocytes/100 WBC (Bld) 0.700 % 0.0-0.9 [facility] Work Phone: Comment on above: IG% - Immature Granu locytes (promyelocytes, myelocytes and metamyelocytes) > 1% indicates that a LEFT SHIFT is Present. MCH (RBC) [Entitic mass] 26.9 pg 27.0-32.0 [facility] Work Phone: Nucleated RBC/100 WBC (Bld) [Ratio] 0 % 0-5 [facility] Work Phone: MCHC Auto (RBC) [Mass/Vol]on 12-29-2021 MCHC (RBC) [Mass/Vol] 32.5 g/dL 32-36 [facility] Work Phone: No Panel Informationon 12-29 Estimated Creatinine Clearance Calc 71.11 ml/min [facility] Work Phone: Estimated GFR (MDRD) Amer 91 mL/min >60 [facility] Work Phone: Comment on above: GFR Calc Estimated GFR (MDRD) Non-Af Amer 75 mL/min >60 [facility] Work Phone: Comment on above: Non- GFR Calc Platelets bldon 12-29-2021 Platelets (Bld) [#/Vol] 177 10*3/uL 150-450 [facility] Work Phone: Serum or plasma calcium antoine urement (mass/volume)on 12-29-2021 Calcium [Mass/Vol] 8.4 mg/dL 8.5-10.1 [facility] Work Phone: Serum or plasma creatinine m easurement (mass/volume)on 12-29-2021 Creatinine [Mass/Vol] 1.03 mg/dL 0.70-1.30 [facility] Work Phone: Comment on above: The validity of the calculated GFR & GFRAA in patients over 70 years has not been determined. Clinical correlation is essential. Serum or plasma urea nitroge n measurement (mass/volume)on 12-29-2021 Urea nitrogen [Mass/Vol] 17 mg/dL 7-18 [facility] Work Phone: Thin prep Papanicolaou smear with manual screeningon 12-29-2021 Thin prep Papanicolaou smear with manual screening 5 5-15 [facility] Work Phone: Basophil percentageon 2021 Lactate [Moles/Vol] 1.9 mmol/L 0.4-2.0 [facility] Work Phone: COon 12-28-2021 Carbon Monoxide Level See Comments Normal [facility] ([place]) Comment on above: Order Comment: See S eparate Report Performed By: #### L IP, MG, TROPHS, CK, LAC, GFR, CO, CMP ####[address] [address] Laboratory - Chemistry and C hemistry - challengeon 12-28-2021 Magnesium [Mass/Vol] 1.8 mg/dL 1.6-2.6 [facility] Work Phone: No Panel Informationon 12-28 Troponin I High Sensitivity 23 pg/mL 3.0-78.0 [facility] Work Phone: Comment on above: Please Note: New Thania t Units and Gender Specific Reference Ranges. For more information see Policy Stat Procedure [place] High Sensitivity Troponin (TNIH) and attachments. .Auto Diffon 12-27-2021 Basophil, Absolute 0.1 10 3/mcL Normal 0.0-0.2 [facility] ([place]) Comment on above: Performed By: #### L IP, MG, TROPHS, CK, LAC, GFR, CO, CMP #### [address] [address] Basophils/100 WBC (Bld) 0.4 % Normal 0.0-2.5 [facility] ([place]) Comment on above: Performed By: #### L IP, MG, TROPHS, CK, LAC, GFR, CO, CMP #### [address] [address] Eosinophil, Absolute 0.1 10 3/mcL Normal 0.0-0.4 [facility] ([place]) Comment on above: Performed By: #### L IP, MG, TROPHS, CK, LAC, GFR, CO, CMP #### [place] [address] [place], [place] [address] Eosinophils/100 WBC (Bld) 0.7 % Normal 0.0-7.0 [facility] ([place] Comment on above: Performed By: #### L IP, MG, TROPHS, CK, LAC, GFR, CO, CMP #### [address] [address] Lymphocyte, Absolute 1.4 10 3/mcL Normal 0.8-3.9 [facility] ([place]) Comment on above: Performed By: #### L IP, MG, TROPHS, CK, LAC, GFR, CO, CMP #### [address] [address] Lymphocytes/100 WBC (Bld) 9.6 % Low 10.0-50.0 [facility] ([place] Comment on above: Performed By: #### L IP, MG, TROPHS, CK, LAC, GFR, CO, CMP #### [address] [address] Monocyte, Absolute 0.8 10 3/mcL Normal 0.2-1.0 [facility] ([place]) Comment on above: Performed By: #### L IP, MG, TROPHS, CK, LAC, GFR, CO, CMP #### [address] [address] Monocytes/100 WBC (Bld) 5.3 % Normal 1.7-13.0 [facility] ([place] Comment on above: Performed By: #### L IP, MG, TROPHS, CK, LAC, GFR, CO, CMP #### [address] [address] Neutrophils/100 WBC (Bld) 84.0 % High 37.0-80.0 [facility] ([place] Comment on above: Performed By: #### L IP, MG, TROPHS, CK, LAC, GFR, CO, CMP #### [address] [address] .GFRon 12-27-2021 GFR 43 ml/min/1.73sqm Normal [facility] ([place] Comment on above: Result Comment: GFR Population [...] CK, LAC, GFR, CO, CMP ####[address] [place], [place] [address] GFR Non- 35 ml/min/1.73sqm Normal [facility] ([place] Comment on above: Result Comment: GFR Population [...] CK, LAC, GFR, CO, CMP ####[address] [place], [place] [address] .MDWon 12-27-2021 Monocyte Distribution Width 15.91 Normal 0.00-20. 00 [facility] ([place] Comment on above: Result Comment: For ED adult patients suspected of sepsis, MDW<=20.0 does not rule out sepsis or risk of sepsis Performed By: #### L IP, MG, TROPHS, CK, LAC, GFR, CO, CMP ####[place] [place], [place] [address] .NEUABSon 12-27-2021 Neutrophil, Absolute 12.6 10 3/mcL High 2.9-6.2 [facility] ([place]) Comment on above: Performed By: #### L IP, MG, TROPHS, CK, LAC, GFR, CO, CMP ####Abbey [address] [address] Basophil percentageon 2021 Basophil percentage 3.8 mg/dL 2.5-4.9 [facility] Work Phone: Bilirubin [Mass/Vol] 0.80 mg/dL 0.20-1.00 [facility] Work Phone: Comment on above: For patients on eltr ombopag therapy, use of Dimension [place] TBIL is not recommended. Protein [Mass/Vol] 6.3 g/dL 6.4-8.2 [facility] Work Phone: CBCon 12-27-2021 Erythrocyte distribution width (RBC) [Ratio] 14.9 % High 11.5-14.5 [facility] ([place] Comment on above: Performed By: #### L IP, MG, TROPHS, CK, LAC, GFR, CO, CMP #### [place] [address] [address] Hematocrit (Bld) [Volume fraction] 43.2 % Normal 42.0-52.0 [facility] ([place] Comment on above: Performed By: #### L IP, MG, TROPHS, CK, LAC, GFR, CO, CMP #### [place] [address] [address] Hgb 14.4 G/dL Normal 14.0-18.0 [facility] ([place] Comment on above: Performed By: #### L IP, MG, TROPHS, CK, LAC, GFR, CO, CMP #### [place] [address] [place], [place] [address] MCH (RBC) [Entitic mass] 26.8 pg Low 27.0-31.2 [facility] ([place] Comment on above: Performed By: #### L IP, MG, TROPHS, CK, LAC, GFR, CO, CMP #### [address] [address] MCHC 33.4 G/dL Normal 31.8-35.4 [facility] ([place] Comment on above: Performed By: #### L IP, MG, TROPHS, CK, LAC, GFR, CO, CMP #### [address] [address] MCV (RBC) [Entitic vol] 80.2 fL Normal 80.0-94.0 [facility] ([place]) Comment on above: Performed By: #### L IP, MG, TROPHS, CK, LAC, GFR, CO, CMP #### [address] [address] Platelet 305 10 3/mcL Normal 130-400 [facility] ([place] Comment on above: Performed By: #### L IP, MG, TROPHS, CK, LAC, GFR, CO, CMP #### [address] [address] Platelet mean volume (Bld) [Entitic vol] 7.5 fL Normal 7.4-10.4 [facility] ([place] Comment on above: Performed By: #### L IP, MG, TROPHS, CK, LAC, GFR, CO, CMP #### [address] [address] RBC 5.39 10 6/mcL Normal 4.04-6.13 [facility] ([place]) Comment on above: Performed By: #### L IP, MG, TROPHS, CK, LAC, GFR, CO, CMP #### [address] [address] WBC 15.0 10 3/mcL High 4.6-10.8 [facility] ([place]) Comment on above: Performed By: #### L IP, MG, TROPHS, CK, LAC, GFR, CO, CMP #### [address] [address] CKon 12-27-2021 CK [Catalytic activity/Vol] 220 U/L Normal 39-308 [facility] ([place] Comment on above: Performed By: #### L IP, MG, TROPHS, CK, LAC, GFR, CO, CMP ####Abbey [address] [place], [place] [address] CMPon 12-27-2021 Albumin Level 3.8 G/dL Normal 3.4-4.8 [facility] ([place] Comment on above: Performed By: #### L IP, MG, TROPHS, CK, LAC, GFR, CO, CMP ####Abbey [address] [place], [place] [address] Albumin/Globulin [Mass ratio] 1.4 {ratio} Normal 1.1-2.5 [facility] ([place] Comment on above: Performed By: #### L IP, MG, TROPHS, CK, LAC, GFR, CO, CMP ####Abbey [address] [place], [place] [address] ALP [Catalytic activity/Vol] 105 U/L Normal 40-135 [facility] ([place] Comment on above: Performed By: #### L IP, MG, TROPHS, CK, LAC, GFR, CO, CMP ####Abbey [address] [place], [place] [address] ALT [Catalytic activity/Vol] 20 U/L Normal 16-63 [facility] ([place] Comment on above: Performed By: #### L IP, MG, TROPHS, CK, LAC, GFR, CO, CMP ####Abbey [address] [place], [place] [address] AST [Catalytic activity/Vol] 16 U/L Normal 10-40 [facility] [place] Comment on above: Performed By: #### L IP, MG, TROPHS, CK, LAC, GFR, CO, CMP ####Abbey [address] [place], [place] [address] Bili Total 0.8 mg/dL Normal 0.2-1.0 [facility] ([place] Comment on above: Result Comment: Use of this assay is not recommended for patients undergoing treatment with eltrombopag due to the potential for falsely elevated results. Performed By: #### L IP, MG, TROPHS, CK, LAC, GFR, CO, CMP ####Abbey [address] [place], [place] [address] BUN/Creatinine Ratio 12 ratio Normal 7-27 [facility] ([place]) Comment on above: Performed By: #### L IP, MG, TROPHS, CK, LAC, GFR, CO, CMP ####Abbey [address] [place], [place] [address] Calcium [Mass/Vol] 9.4 mg/dL Normal 8.4-10.2 [facility] ([place]) Comment on above: Performed By: #### L IP, MG, TROPHS, CK, LAC, GFR, CO, CMP ####[address]be[address] [place], [place] [address] Chloride [Moles/Vol] 104 mmol/L Normal 98-107 [facility] ([place] Comment on above: Performed By: #### L IP, MG, TROPHS, CK, LAC, GFR, CO, CMP ####Abbey [address] [place], [place] [address] CO2 [Moles/Vol] 22 mmol/L Low 23-31 [facility] ([place] Comment on above: Performed By: #### L IP, MG, TROPHS, CK, LAC, GFR, CO, CMP ####Abbey [address] [place], [place] [address] Creatinine [Mass/Vol] 1.88 mg/dL High 0.70-1.30 [facility] ([place]) Comment on above: Performed By: #### L IP, MG, TROPHS, CK, LAC, GFR, CO, CMP ####Abbey [address] [place], [place] [address] Electrolyte Balance 13.0 mEq/L Normal 4.0-15.0 [facility] ([place]) Comment on above: Performed By: #### L IP, MG, TROPHS, CK, LAC, GFR, CO, CMP ####Abbey [address] [place], [place] [address] Globulin 2.8 G/dL Normal [facility] ([place] Comment on above: Performed By: #### L IP, MG, TROPHS, CK, LAC, GFR, CO, CMP ####Abbey [address] [place], [place] [address] Glucose [Mass/Vol] 205 mg/dL High 83-110 [facility] ([place] Comment on above: Performed By: #### L IP, MG, TROPHS, CK, LAC, GFR, CO, CMP ####Abbey [address] [place], [place] [address] Potassium [Moles/Vol] 5.2 mmol/L High 3.5-5.1 [facility] ([place] Comment on above: Performed By: #### L IP, MG, TROPHS, CK, LAC, GFR, CO, CMP ####Abbey [address] [place], [place] [address] Sodium [Moles/Vol] 139 mmol/L Normal 136-145 [facility] ([place] Comment on above: Performed By: #### L IP, MG, TROPHS, CK, LAC, GFR, CO, CMP ####Abbey [address] [place], [place] [address] Total Protein 6.6 G/dL Normal 6.4-8.2 [facility] [place] Comment on above: Performed By: #### L IP, MG, TROPHS, CK, LAC, GFR, CO, CMP ####Abbey [address] [place], [place] [address] Urea nitrogen [Mass/Vol] 23 mg/dL High 7-18 [facility] [place] Comment on above: Performed By: #### L IP, MG, TROPHS, CK, LAC, GFR, CO, CMP ####Abbey [address] [place], [place] [address] [id number] 12-27-2021 Date of Onset [id number] Invalid Interpretation Code [facility] [place] Comment on above: Performed By: #### C OVD19, FLURSV #### Abbey [address] [place], [place] [address] Employed in Healthcare No Normal [facility] ([place] Comment on above: Performed By: #### C OVD19, FLURSV #### [place] [address] [facility] [place] Comment on above: Performed By: #### C OVD19, FLURSV #### [place] [address] [facility] [place] Comment on above: Performed By: #### C OVD19, FLURSV #### [place] [address] [facility] [place] Comment on above: Performed By: #### C OVD19, FLURSV #### [place] [address] [facility] [place] Comment on above: Performed By: #### C OVD19, FLURSV #### [place] [address] [facility] [place] Comment on above: Performed By: #### C OVD19, FLURSV #### [place] [address] SARS-CoV-2 (COVID-19) RNA ANGELY+probe Ql (Unsp spec) Positive Abnormal Negative [facility] [place] Comment on above: Performed By: #### C OVD19, FLURSV #### [place] [address] SARS-CoV-2 (COVID-19) RNA ANGELY+probe Ql (Unsp spec) [facility] [place] Comment on above: Result Comment: Posi tive results are indicative of the presence of SARS-CoV-2 RNA; clinical correlation with patient history and other diagnostic information is necessary to determine patient infection status. Positive results do not rule out bacterial infection or co-infection with other viruses. The agent detected may not be the definite cause of disease. Laboratories within the [facility] and its territories are required to [...] By: #### C OVD19, FLURSV #### [place] [place], [place] [address] Symptomatic as Defined by CDC No Normal [facility] ([place] Comment on above: Performed By: #### C OVD19, FLURSV #### Abbey [address] [address] [address] HEAD OR BRAIN W/O CONTRAS Ton [...] 7:53:25 PM Ordering Provider: SREEDHAR LINARES Normal [facility] [place] Carboxyhemoglobinon 12-28-19 Carboxyhemoglobin (Bld) [Mass/Vol] 1.9 % 0.0-1.5 [facility] Work Phone: Comment on above: * NON-SMOKER RANGE 1 .6 - 5.0% * LIGHT SMOKER RANGE 5.1 - 9.0% * HEAVY SMOKER RANGE FLURSVon 12-27-2021 Flu A PCR (AO) Negative Normal Negative [facility] [place] Comment on above: Result Comment: Posi tive [...] virus (RSV) nucleic acid in nasopharyngeal swab (RETAIL WIRELESS SALES REPRESENTATIVE) specimens from patients with signs and symptoms of respiratory infection in conjunction with clinical and laboratory findings. The test is intended for use as an aid in the differential diagnosis of influenza A virus, influenza B virus, and RSV in humans and is not intended to detect influenza C. Performed By: #### C OVD19, FLURSV #### [place] [address] [place], [place] [address] Flu B PCR (AO) Negative Normal Negative [facility] ([place] Comment on above: Result Comment: Posi tive [...] REPEAT COLLECTION AND TESTING IS RECOMMENDED. The Casualing Flu A/B & RSV Assay is a real-time polymerase chain reaction (PCR) based qualitative in vitro diagnostic test for the direct detection and differentiation of influenza A virus, influenza B virus, and respiratory syncytial virus (RSV) nucleic acid in nasopharyngeal swab (RETAIL WIRELESS SALES REPRESENTATIVE) specimens from patients with signs and symptoms of respiratory infection in conjunction with clinical and laboratory findings. The test is intended for use as an aid in the differential diagnosis of influenza A virus, influenza B virus, and RSV in humans and is not intended to detect influenza C. Performed By: #### C OVD19, FLURSV #### [place] [address] [place], [place] [address] RSV PCR (AO) Negative Normal Negative [facility] [place] Comment on above: Result Comment: Posi tive [...] virus (RSV) nucleic acid in nasopharyngeal swab (RETAIL WIRELESS SALES REPRESENTATIVE) specimens from patients with signs and symptoms of respiratory infection in conjunction with clinical and laboratory findings. The test is intended for use as an aid in the differential diagnosis of influenza A virus, influenza B virus, and RSV in humans and is not intended to detect influenza C. Performed By: #### C OVD19, FLURSV #### Abbey [address] [place], [place] [address] INR in Blood by Coagulation assayon 12-27-2021 INR Coag (Bld) [Relative time] 2.4 {INR} [facility] Work Phone: LABORATORYOrdered By: Ramiro [...] definite cause of disease. Laboratories within the [facility] and its territories are required to [...] Lactic Acid Lvl 3.0 mmol/L High 0.4-2.0 [facility] [place] Comment on above: Performed By: #### L AC #### [address] [address] Lactic Acid Lvl 4.6 mmol/L High 0.4-2.0 [facility] [place] Comment on above: Performed By: #### L IP, MG, TROPHS, CK, LAC, GFR, CO, CMP ####Abbey [address] [place], [place] [address] LIPon 12-27-2021 Lipase Level 67 U/L Low 73-393 [facility] [place] Comment on above: Performed By: #### L IP, MG, TROPHS, CK, LAC, GFR, CO, CMP ####Abbey [address] [place], [place] [address] Laboratory - Chemistry and C hemistry - challengeon 12-27-2021 ALP [Catalytic activity/Vol] 89 U/L 45-117 [facility] Work Phone: [phone] ALT [Catalytic activity/Vol] 26 U/L 16-61 [facility] Work Phone: Globulin (S) [Mass/Vol] 3.1 g/dL 2.2-4.2 [facility] Work Phone: Laboratory - Coagulationon 0 12-27-2021 PT Coag (PPP) [Time] 25.5 s 11.7-14.[address] [facility] Work Phone: MGon 12-27-2021 Magnesium [Mass/Vol] 1.3 mg/dL Low 1.8-2.4 [facility] ([place]) Comment on above: Performed By: #### L IP, MG, TROPHS, CK, LAC, GFR, CO, CMP ####[address] [address] PROon 12-27-2021 INR Coag (PPP) [Relative time] 2.7 {INR} High 0.9-1.2 [facility] [place] Comment on above: Result Comment: Tony dard Dose 2.0 - 3.0 High Dose 2.5 - 3.5 The recommended therapeutic range for oral anticoagulant therapy is: LOW RISK: Prophylaxis of venous thrombosis INR: 2.0 - 3.0 Treatment of pulmonary embolism 2.0 - 3.0 Prevention of systemic embolism 2.0 - 3.0 HIGH RISK: Mechanical prosthetic valves 2.5 - 3.5 Performed By: #### P RO #### [address] [address] PT Coag (PPP) [Time] 31.6 s High 9.7-14.3 [facility] ([place]) Comment on above: Performed By: #### P RO #### [address] [address] Serum or plasma albumin antoine urement (mass/volume)on 12-27-2021 Albumin [Mass/Vol] 3.2 g/dL 3.2-5.0 [facility] Work Phone: Serum or plasma albumin/glob ulin mass ratioon 12-27-2021 Albumin/Globulin [Mass ratio] 1.0 {ratio} 0.9-2.4 [facility] Work Phone: TROPHSon 12-27-2021 Troponin I High Sensitivity 11.1 ng/L Normal 0.0-76.2 [facility] ([place]) Comment on above: Performed By: #### L IP, MG, TROPHS, CK, LAC, GFR, CO, CMP #### [facility] [address] [place], [place] [address] Thin prep Papanicolaou smear with manual screeningon 12-27-2021 Thin prep Papanicolaou smear with manual screening 44 U/L 15-37 [facility] Work Phone: XR CHEST 1 VIEWon [...] 12/27/2021 6:23:59 PM Ordering Provider: SREEDHAR Parson [facility] ([place]) Absolute lymphocyte counton 12-06-2021 Lymphocytes Auto (Unsp spec) [#/Vol] 0.42 10*3/uL 0.83-4.51 [facility] Work Phone: Basophil percentageon 2021 Basophils/100 WBC (Bld) 0.4 % 0-1 [facility] Work Phone: [phone] Chloride [Moles/Vol] 105 mmol/L 98-107 [facility] Work Phone: Eosinophils/100 WBC (Bld) 2.3 % 0-5 [facility] Work Phone: Glucose [Mass/Vol] 138 mg/dL 74-106 [facility] Work Phone: [phone] Comment on above: Fasting Glucose resu lt greater than or equal to 126 mg/dL suggests DIABETES MELLITUS per A.D.A. criteria. Neutrophils (Bld) [#/Vol] 7.5 10*3/uL 2.0-7.7 [facility] Work Phone: Neutrophils/100 WBC (Bld) 81.2 % 47-70 [facility] Work Phone: Potassium [Moles/Vol] 3.7 mmol/L 3.5-5.1 [facility] Work Phone: Sodium [Moles/Vol] 138 mmol/L 136-145 [facility] Work Phone: WBC (Bld) [#/Vol] 9.3 10*3/uL 4.4-11.0 [facility] Work Phone: Basophil percentage 0-5 SEEN /hpf 0-5 [facility] Work Phone: Bilirubin Test strip Ql (U)o n 12-06-2021 Bilirubin Ql (U) Negative Negative [facility] Work Phone: Blood erythrocytes count (nu mber/volume)on 12-06-2021 RBC (Bld) [#/Vol] 5.07 10*6/uL 4.6-6.2 [facility] Work Phone: Blood hemoglobin measurement (mass/volume)on 12-06-2021 Hemoglobin (Bld) [Mass/Vol] 13.8 g/dL 13.0-16. 5 [facility] Work Phone: Blood lymphocytes/100 leukoc yteson 12-06-2021 Lymphocytes/100 WBC (Bld) 4.5 % 19-41 [facility] Work Phone: Blood manual differential co mment interpretation (narrative result)on 12-06-2021 Manual differential comment Ori (Bld) [Interp] SCANNED [facility] Work Phone: Comment on above: LYMPHOPENIA NOTED Blood monocytes/100 leukocyt eson 12-06-2021 Monocytes/100 WBC (Bld) 8.6 % 0-10 [facility] Work Phone: Blood platelet mean volumeon 12-06-2021 Platelet mean volume (Bld) [Entitic vol] 9.2 fL 6.2-12.0 [facility] Work Phone: Determination of erythrocyte mean corpuscular volume (MCV)on 12-06-2021 MCV (RBC) [Entitic vol] 83.0 fL 80-94 [facility] Work Phone: Hematocrit Auto (Bld) [Volum e fraction]on 12-06-2021 Hematocrit (Bld) [Volume fraction] 42.1 % 40-54 [facility] Work Phone: INR in Blood by Coagulation assayon 12-06-2021 INR Coag (Bld) [Relative time] 3.3 {INR} [facility] Work Phone: Ketones Test strip Ql (U)on 12-06-2021 Ketones Ql (U) 5 mg/dl Negative [facility] Work Phone: Laboratory - Chemistry and C hemistry - challengeon 12-06-2021 CO2 [Moles/Vol] 24.0 mmol/L 21.0-32.0 [facility] Work Phone: Urea nitrogen/Creatinine [Mass ratio] 14.2 mg/mg 10-20 [facility] Work Phone: Laboratory - Coagulationon 0 12-06-2021 PT Coag (PPP) [Time] 32.9 s 11.7-14.9 [facility] Work Phone: Laboratory - Hematology and Cell countson 12-06-2021 Erythrocyte distribution width (RBC) [Entitic vol] 42.4 fL 35.1-43.9 [facility] Work Phone: Erythrocyte distribution width (RBC) [Ratio] 14.0 % 11.6-14.6 [facility] Work Phone: Immature granulocytes/100 WBC (Bld) 3.000 % 0.0-0.9 [facility] Work Phone: Comment on above: IG% - Immature Granu locytes (promyelocytes, myelocytes and metamyelocytes) > 1% indicates that a LEFT SHIFT is Present. MCH (RBC) [Entitic mass] 27.2 pg 27.0-32.0 [facility] Work Phone: Nucleated RBC/100 WBC (Bld) [Ratio] 0 % 0-5 [facility] Work Phone: MCHC Auto (RBC) [Mass/Vol]on 12-06-2021 MCHC (RBC) [Mass/Vol] 32.8 g/dL 32-36 [facility] Work Phone: Mucus LM Ql (Urine sed)on Mucus Ql (Urine sed) 0 SEEN /hpf [facility] Work Phone: Nitrite Test strip Ql (U)on 12-06-2021 Nitrite Ql (U) Negative Negative [facility] Work Phone: No Panel Informationon 12-06 Estimated Creatinine Clearance Calc 61.03 ml/min [facility] Work Phone: Estimated GFR (MDRD) Amer 76 mL/min >60 [facility] Work Phone: Comment on above: GFR Calc Estimated GFR (MDRD) Non-Af Amer 63 mL/min >60 [facility] Work Phone: Comment on above: Non- GFR Calc Troponin I High Sensitivity 5 pg/mL 3.0-78.0 [facility] Work Phone: Comment on above: Please Note: New Thania t Units and Gender Specific Reference Ranges. For more information see Policy Stat Procedure [place] High Sensitivity Troponin (TNIH) and attachments. SARS-CoV-2 & FLU Antigen (Rapid) SARS-CoV-2 (COVID 19) [facility] Work Phone: Platelets bldon 12-06-2021 Platelets (Bld) [#/Vol] 229 10*3/uL 150-450 [facility] Work Phone: Protein Test strip Ql (U)on 12-06-2021 Protein Ql (U) 30 mg/dl Negative [facility] Work Phone: Serum or plasma calcium antoine urement (mass/volume)on 12-06-2021 Calcium [Mass/Vol] 8.9 mg/dL 8.5-10.1 [facility] Work Phone: Serum or plasma creatinine m easurement (mass/volume)on 12-06-2021 Creatinine [Mass/Vol] 1.20 mg/dL 0.70-1.30 [facility] Work Phone: Comment on above: The validity of the calculated GFR & GFRAA in patients over 70 years has not been determined. Clinical correlation is essential. Serum or plasma urea nitroge n measurement (mass/volume)on 12-06-2021 Urea nitrogen [Mass/Vol] 17 mg/dL 7-18 [facility] Work Phone: Squamous epithelial cells de tection in urine sediment by light microscopyon 12-06-2021 Epithelial cells.squamous LM Ql (Urine sed) 0-5 SEEN /hpf 0-5 [facility] Work Phone: Thin prep Papanicolaou smear with manual screeningon 12-06-2021 Thin prep Papanicolaou smear with manual screening 9 5-15 [facility] Work Phone: Urine blood detectionon 11-13 RBC Ql (U) 10 /ul Negative [facility] Work Phone: RBC Ql (U) 0 SEEN /hpf 0-5 [facility] Work Phone: Urine clarityon 12-06-2021 Clarity (U) Clear Clear [facility] Work Phone: Urine color determinationon 12-06-2021 Color (U) Yellow Yellow [facility] Work Phone: Urine glucose detectionon Glucose Ql (U) 100 mg/dl Normal [facility] Work Phone: Urine leukocyte esterase det ection by dipstickon 12-06-2021 Leukocyte esterase Test strip Ql (U) 25 /ul Negative [facility] Work Phone: Urine pHon 12-06-2021 pH (U) 5.0 [pH] 5.0 - 8.0 [facility] Work Phone: Urine sediment bacteria coun t by microscopy (number/high power field)on 12-06-2021 Bacteria LM.HPF (Urine sed) [#/Area] 1 /[HPF] None Seen [facility] Work Phone: Urine specific gravity measu rementon 12-06-2021 Specific gravity (U) [Rel density] 1.025 1.002-1.03 0 [facility] Work Phone: Urobilinogen Auto test strip Ql (U)on 12-06-2021 Urobilinogen Ql (U) 1 mg/dl Normal [facility] Work Phone: GLUCOSE, BLOOD (POC)on 10-10 Glucose [Mass/Vol] 121 mg/dL Abnormal 74 - 99 mg/dL [facility] Glucose [Mass/Vol] 144 mg/dL Abnormal 74 - 99 mg/dL [facility] No Panel Informationon 10-10 [facility] CTA CHEST (GATED) W IVCONon 07-27-2021 CTA CHEST (GATED) W IVCON * * *Final Rep ort* * * DATE OF EXAM: Jul 27 2021 11:00AM [facility] [place] 0125 - CTA [...] The arch vessel branching pattern is normal. 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 Cholelithiasis without findings of acute cholecystitis. Fountain Clerk: BLAKE Transcribe Date/Time: Jul 27 2021 11:21A Dictated by : BALBIR RAYGOZA MD This examination was interpreted and the report reviewed and electronically signed by: SADE (more content not included)... Normal [facility] Laboratory - Microbiology an d Antimicrobial susceptibility Bacteria identified Cx Nom (Bld) No growth in 5 days. [facility] Work Phone: No Panel Information SARS-CoV-2 & FLU Antigen (Rapid) SARS-CoV-2 (COVID 19) [facility] Work Phone: Vital Signs Date Time Vital Sign Value Performing Clinician Jimi [place] 03-22-2025 09:51-0400 Body height 182.[address] Luis Caldera MD Work Phone: [facility] 03-22-2025 09:51-0400 Body mass index (BMI) [Ratio] 31.8 kg/m2 Dr. Luis Caldera MD Work Phone: [facility] 03-22-2025 09:51-0400 Body weight 106.[address] Luis Caldera MD Work Phone: [facility] 03-22-2025 09:51-0400 Diastolic blood pressure 64 mm[Hg] Dr. Luis Caldera MD Work Phone: 6(385)558-508796 [place] [address] 03-22-2025 09:51-0400 Heart rate 60 /min Dr. Luis Caldera MD Work Phone: 1(900)222-169496 [place] [address] 03-22-2025 09:51-0400 Respiratory rate 16 /min Dr. Luis Cadlera MD Work Phone: 9(405)450-244196 [place] [address] 03-22-2025 09:51-0400 Systolic blood pressure 104 mm[Hg] Dr. Luis Caledra MD Work Phone: 1(304)554-259596 [place] [address] 03-03-2025 15:37-0400 Body temperature 97.2 [degF] Dr. Luis Caldera MD Work Phone: 8(070)932-772296 [place] [address] 03-03-2025 15:37-0400 Diastolic blood pressure 77 mm[Hg] Dr. Luis Caldera MD Work Phone: 8(742)545-017796 [place] [address] 03-03-2025 15:37-0400 Heart rate 63 /min Dr. Luis Caldera MD Work Phone: 3(104)201-457596 [place] [address] 03-03-2025 15:37-0400 Respiratory rate 16 /min Dr. Luis Caldera MD Work Phone: 6(674)652-944396 [place] [address] 03-03-2025 15:37-0400 SaO2% (BldA) [Mass fraction] 99 % Dr. Luis Caldera MD Work Phone: 6(575)795-155696 [place] [address] 03-03-2025 15:37-0400 Systolic blood pressure 141 mm[Hg] Dr. Luis Caldera MD Work Phone: 0(029)850-358796 [place] [address] 02-28-2025 00:00-0400 Heart rate 83 /min Dr. Luis Caldera MD Work Phone: 4(906)470-692396 [place] [address] 02-28-2025 00:00-0400 Respiratory rate 14 /min Dr. Luis Caldera MD Work Phone: 2(585)516-611196 [place] [address] 02-28-2025 00:00-0400 SaO2% (BldA) [Mass fraction] 96 % Dr. Luis Caldera MD Work Phone: 6(481)838-238800 [place] [address] 02-27-2025 22:00-0400 Diastolic blood pressure 76 mm[Hg] Dr. Luis Caldera MD Work Phone: 8(331)318-267096 [place] [address] 02-27-2025 22:00-0400 Systolic blood pressure 144 mm[Hg] Dr. Luis Caldera MD Work Phone: 9(644)561-851996 [place] [address] 02-27-2025 21:35-0400 Body temperature 98.2 [degF] Dr. Luis Caldera MD Work Phone: 2(308)626-638696 [place] [address] 02-27-2025 18:27-0400 Body height 182.[address] Luis Caldera MD Work Phone: 8(757)356-254396 [place] [address] 02-27-2025 18:27-0400 Body mass index (BMI) [Ratio] 34.1 kg/m2 Dr. Luis Caldera MD Work Phone: 9(810)986-439096 [place] [address] 02-27-2025 18:27-0400 Body weight 114.[address] Luis Caldera MD Work Phone: 7(538)588-380796 [place] [address] 02-11-2025 15:20-0400 Body temperature 98.4 [degF] Dr. Luis Caldera MD Work Phone: 0(748)142-503996 [place] [address] 02-11-2025 15:20-0400 Diastolic blood pressure 64 mm[Hg] Dr. Luis Caldera MD Work Phone: 4(776)075-581196 [place] [address] 02-11-2025 15:20-0400 Heart rate 61 /min Dr. Luis Caldera MD Work Phone: 6(496)449-846196 [place] [address] 02-11-2025 15:20-0400 Inhaled oxygen flow rate 2 L/min Dr. Luis Caldera MD Work Phone: 4(960)250-392496 [place] [address] 02-11-2025 15:20-0400 Respiratory rate 18 /min Dr. Luis Caldera MD Work Phone: 7(369)825-584096 [place] [address] 02-11-2025 15:20-0400 SaO2% (BldA) [Mass fraction] 96 % Dr. Luis Caldera MD Work Phone: 4(294)284-716196 [place] [address] 02-11-2025 15:20-0400 Systolic blood pressure 132 mm[Hg] Dr. Luis Caldera MD Work Phone: 8(731)957-885996 [place] [address] 02-11-2025 05:55-0400 Body mass index (BMI) [Ratio] 34.8 kg/m2 Dr. Luis Caldera MD Work Phone: 2(419)921-735496 [place] [address] 02-11-2025 05:55-0400 Body weight 116.[address] Luis Caldera MD Work Phone: 8(654)370-825196 [place] [address] 02-08-2025 12:01-0400 Body height 182.[address] Luis Caldera MD Work Phone: 4(539)488-001196 [place] [address] 02-03-2025 00:00-0400 Body temperature 99 [degF] Dr. Luis Caldera MD Work Phone: 8(120)989-988696 [place] [address] 02-03-2025 00:00-0400 Diastolic blood pressure 52 mm[Hg] Dr. Luis Caldera MD Work Phone: 8(717)950-144796 [place] [address] 02-03-2025 00:00-0400 Heart rate 68 /min Dr. Luis Caldera MD Work Phone: 7(611)246-228296 [place] [address] 02-03-2025 00:00-0400 Respiratory rate 20 /min Dr. Luis Caldera MD Work Phone: 2(395)109-377896 [place] [address] 02-03-2025 00:00-0400 SaO2% (BldA) [Mass fraction] 97 % Dr. Luis Caldera MD Work Phone: 1(017)128-505496 [place] [address] 02-03-2025 00:00-0400 Systolic blood pressure 127 mm[Hg] Dr. Luis Caldera MD Work Phone: 5(847)054-560096 [place] [address] 02-02-2025 19:42-0400 Body height 182.[address] Luis Caldera MD Work Phone: 3(614)909-799496 [place] [address] 02-02-2025 19:42-0400 Body mass index (BMI) [Ratio] 35.7 kg/m2 Dr. Luis Caldera MD Work Phone: 9(263)003-583696 [place] [address] 02-02-2025 19:42-0400 Body weight 119.[address] Luis Caldera MD Work Phone: 8(252)639-722896 [place] [address] 02-02-2025 19:42-0400 Inhaled oxygen flow rate 15 L/min Dr. Luis Caldera MD Work Phone: 3(664)337-938096 [place] [address] 10-12-2024 13:12-0400 Body height 182.[address] Luis Caldera MD Work Phone: 9(769)610-219196 [place] [address] 10-12-2024 13:12-0400 Body mass index (BMI) [Ratio] 32.3 kg/m2 Dr. Luis Caldera MD Work Phone: 1(466)623-611996 [place] [address] 10-12-2024 13:12-0400 Body weight 107.[address] Luis Caldera MD Work Phone: 6(893)702-990496 [place] [address] 10-12-2024 13:12-0400 Diastolic blood pressure 57 mm[Hg] Dr. Luis Caldera MD Work Phone: 1(758)345-105096 [place] [address] 10-12-2024 13:12-0400 Heart rate 65 /min Dr. Luis Caldera MD Work Phone: 0(346)891-166496 [place] [address] 10-12-2024 13:12-0400 Respiratory rate 18 /min Dr. Luis Caldera MD Work Phone: 6(451)455-001896 [place] [address] 10-12-2024 13:12-0400 SaO2% (BldA) [Mass fraction] 99 % Dr. Luis Caldera MD Work Phone: 7(537)103-896296 [place] [address] 10-12-2024 13:12-0400 Systolic blood pressure 117 mm[Hg] Dr. Luis Caldera MD Work Phone: 6(784)833-138696 [place] [address] 10-07-2023 14:18-0400 Body height 182.[address] Luis Caldera Work Phone: 5(461)110-739296 [place] [address] 10-07-2023 14:18-0400 Body mass index (BMI) [Ratio] 29.8 kg/m2 Dr. Luis Caldera Work Phone: 8(617)757-996496 [place] [address] 10-07-2023 14:18-0400 Body weight 99.[address] Luis Caldera Work Phone: 0(775)887-624696 [place] [address] 10-07-2023 14:18-0400 Diastolic blood pressure 66 mm[Hg] Dr. Luis Caldera Work Phone: 1(263)389-431296 [place] [address] 10-07-2023 14:18-0400 Heart rate 67 /min Dr. Luis Caldera Work Phone: 2(522)012-469596 [place] [address] 10-07-2023 14:18-0400 Respiratory rate 16 /min Dr. Luis Caldera Work Phone: 6(208)853-415096 [place] [address] 10-07-2023 14:18-0400 Systolic blood pressure 112 mm[Hg] Dr. Luis Caldera Work Phone: 4(034)153-464896 [place] [address] 06-03-2023 12:50-0500 Body temperature 97.2 [degF] Dr. Luis Caldera Work Phone: 2(192)473-421396 [place] [address] 06-03-2023 12:50-0500 Diastolic blood pressure 90 mm[Hg] Dr. Luis Caldera Work Phone: 9(071)450-451296 [place] [address] 06-03-2023 12:50-0500 Heart rate 85 /min Dr. Luis Caldera Work Phone: 7(026)564-923896 [place] [address] 06-03-2023 12:50-0500 Respiratory rate 16 /min Dr. Luis Caldera Work Phone: 7(975)905-911096 [place] [address] 06-03-2023 12:50-0500 SaO2% (BldA) [Mass fraction] 97 % Dr. Luis Caldera Work Phone: [facility] 06-03-2023 12:50-0500 Systolic blood pressure 134 mm[Hg] Dr. Luis Caldera Work Phone: [facility] 06-03-2023 11:45-0500 Body height 182.[address] Luis Caldera Work Phone: [facility] 06-03-2023 11:45-0500 Body mass index (BMI) [Ratio] 30.5 kg/m2 Dr. Luis Caldera Work Phone: [facility] 06-03-2023 11:45-0500 Body weight 102.[address] Luis Caldera Work Phone: [facility] 03-27-2023 13:51-0400 Body height 185.[address] Maggy Roberts Work Phone: [facility] 03-27-2023 13:51-0400 Body mass index (BMI) [Ratio] 34.7 kg/m2 Dr. Maggy Roberts Work Phone: [facility] 03-27-2023 13:51-0400 Body weight 119.[address] Maggy Roberts Work Phone: [facility] 03-27-2023 13:51-0400 Diastolic blood pressure 78 mm[Hg] Dr. Maggy Roberts Work Phone: [facility] 03-27-2023 13:51-0400 Heart rate 97 /min Dr. Maggy Roberts Work Phone: [facility] 03-27-2023 13:51-0400 Respiratory rate 18 /min Dr. Maggy Roberts Work Phone: [facility] 03-27-2023 13:51-0400 SaO2% (BldA) [Mass fraction] 98 % Dr. Maggy Roberts Work Phone: [facility] 03-27-2023 13:51-0400 Systolic blood pressure 118 mm[Hg] Dr. Maggy Roberts Work Phone: 9(654)479-700874 [place] [address] 02-13-2023 15:02-0400 Body temperature 97 [degF] Dr. Maggy Roberts Work Phone: 7(142)683-272764 [place] [address] 02-13-2023 15:02-0400 Diastolic blood pressure 70 mm[Hg] Dr. Maggy Roberts Work Phone: 2(280)070-360664 [place] [address] 02-13-2023 15:02-0400 Heart rate 82 /min Dr. Maggy Roberts Work Phone: 1(714)968-151264 [place] [address] 02-13-2023 15:02-0400 Respiratory rate 16 /min Dr. Maggy Roberts Work Phone: 1(073)399-037964 [place] [address] 02-13-2023 15:02-0400 SaO2% (BldA) [Mass fraction] 100 % Dr. Maggy Roberts Work Phone: 5(154)457-781164 [place] [address] 02-13-2023 15:02-0400 Systolic blood pressure 134 mm[Hg] Dr. Maggy Roberts Work Phone: 8(660)129-838564 [place] [address] 02-12-2023 13:33-0400 Body height 185.[address] Maggy Roberts Work Phone: 2(193)859-617364 [place] [address] 02-12-2023 13:33-0400 Body weight 102.[address] Maggy Roberts Work Phone: 7(961)655-430664 [place] [address] 02-11-2023 20:45-0400 Body mass index (BMI) [Ratio] 30 kg/m2 Dr. Maggy Roberts Work Phone: 8(640)087-067664 [place] [address] 02-11-2023 18:53-0400 Body temperature 99.1 [degF] Dr. Maggy Roberts Work Phone: 8(018)386-496064 [place] [address] 02-11-2023 18:53-0400 Diastolic blood pressure 71 mm[Hg] Dr. Maggy Roberts Work Phone: 6(427)776-265764 [place] [address] 02-11-2023 18:53-0400 Heart rate 88 /min Dr. Maggy Roberts Work Phone: [facility] 02-11-2023 18:53-0400 Respiratory rate 18 /min Dr. Maggy Roberts Work Phone: 1(279)686-941774 [place] [address] 02-11-2023 18:53-0400 SaO2% (BldA) [Mass fraction] 93 % Dr. Maggy Roberts Work Phone: [facility] 02-11-2023 18:53-0400 Systolic blood pressure 129 mm[Hg] Dr. Maggy Robetrs Work Phone: 3(468)840-013964 [place] [address] 02-11-2023 16:21-0400 Body height 185.[address] Maggy Roberts Work Phone: 9(029)333-302664 [place] [address] 02-11-2023 00:58-0400 Body temperature 98.4 [degF] Dr. Maggy Roberts Work Phone: 3(849)070-563764 [place] [address] 02-11-2023 00:58-0400 Diastolic blood pressure 62 mm[Hg] Dr. Maggy Roberts Work Phone: 4(522)194-433674 [place] [address] 02-11-2023 00:58-0400 Heart rate 74 /min Dr. Maggy Roberts Work Phone: 3(931)128-713374 [place] [address] 02-11-2023 00:58-0400 Respiratory rate 26 /min Dr. Maggy Roberts Work Phone: [facility] 02-11-2023 00:58-0400 SaO2% (BldA) [Mass fraction] 95 % Dr. Maggy Roberts Work Phone: [facility] 02-11-2023 00:58-0400 Systolic blood pressure 124 mm[Hg] Dr. Maggy Roberts Work Phone: 6(919)403-534364 [place] [address] 02-10-2023 21:23-0400 Body height 185.[address] Maggy Roberts Work Phone: 6(223)067-105574 [place] [address] 02-10-2023 21:23-0400 Body mass index (BMI) [Ratio] 30.9 kg/m2 Dr. Maggy Roberts Work Phone: [facility] 02-10-2023 21:23-0400 Body weight 106.[address] Maggy Roberts Work Phone: 1(209)476-586074 [place] [address] 02-05-2023 15:10-0400 Body temperature 97.4 [degF] Dr. Maggy Roberts Work Phone: 3(535)210-252164 [place] [address] 02-05-2023 15:10-0400 Diastolic blood pressure 77 mm[Hg] Dr. Maggy Roberts Work Phone: 1(582)082-140964 [place] [address] 02-05-2023 15:10-0400 Heart rate 85 /min Dr. Maggy Roberts Work Phone: 1(866)274-002064 [place] [address] 02-05-2023 15:10-0400 Respiratory rate 18 /min Dr. Maggy Roberts Work Phone: 5(483)802-678764 [place] [address] 02-05-2023 15:10-0400 SaO2% (BldA) [Mass fraction] 94 % Dr. Maggy Roberts Work Phone: 9(521)170-712509 [address] 02-05-2023 15:10-0400 Systolic blood pressure 131 mm[Hg] Dr. Maggy Roberts Work Phone: [facility] 02-05-2023 05:36-0400 Body mass index (BMI) [Ratio] 30.6 kg/m2 Dr. Maggy Roberts Work Phone: 8(601)219-789774 [place] [address] 02-05-2023 05:36-0400 Body weight 105.[address] Maggy Roberts Work Phone: 1(705)866-380574 [place] [address] 02-01-2023 00:17-0400 Inhaled oxygen flow rate 2 L/min Dr. Maggy Roberts Work Phone: [facility] 01-27-2023 21:04-0400 Body temperature 98.1 [degF] Dr. Maggy Roberts Work Phone: 2(090)912-226074 [place] [address] 01-27-2023 21:04-0400 Diastolic blood pressure 48 mm[Hg] Dr. Maggy Roberts Work Phone: [facility] 01-27-2023 21:04-0400 Heart rate 79 /min Dr. Maggy Roberts Work Phone: 7(161)682-774374 [place] [address] 01-27-2023 21:04-0400 Respiratory rate 16 /min Dr. Maggy Roberts Work Phone: 7(981)948-706974 [place] [address] 01-27-2023 21:04-0400 SaO2% (BldA) [Mass fraction] 94 % Dr. Maggy Roberts Work Phone: 7(575)075-736474 [place] [address] 01-27-2023 21:04-0400 Systolic blood pressure 111 mm[Hg] Dr. Maggy Roberts Work Phone: 3(333)916-109174 [place] [address] 01-27-2023 17:58-0400 Body height 185.[address] Maggy Roberts Work Phone: 8(335)372-423664 [place] [address] 01-27-2023 17:58-0400 Body mass index (BMI) [Ratio] 30.5 kg/m2 Dr. Maggy Roberts Work Phone: 4(854)428-490474 [place] [address] 01-27-2023 17:58-0400 Body weight [address] Maggy Roberts Work Phone: [facility] 01-26-2023 14:13-0400 Body temperature 98.6 [degF] Dr. Maggy Roberts Work Phone: [facility] 01-26-2023 14:13-0400 Diastolic blood pressure 46 mm[Hg] Dr. Maggy Roberts Work Phone: 9(548)274-811174 [place] [address] 01-26-2023 14:13-0400 Heart rate 60 /min Dr. Maggy Roberts Work Phone: 8(887)783-618874 [place] [address] 01-26-2023 14:13-0400 Respiratory rate 18 /min Dr. Maggy Roberts Work Phone: 8(289)391-897374 [place] [address] 01-26-2023 14:13-0400 SaO2% (BldA) [Mass fraction] 97 % Dr. Maggy Roberts Work Phone: [facility] 01-26-2023 14:13-0400 Systolic blood pressure 134 mm[Hg] Dr. Maggy Roberts Work Phone: [facility] 01-25-2023 05:27-0400 Body mass index (BMI) [Ratio] 28.2 kg/m2 Dr. Maggy Roberts Work Phone: 9(814)936-290974 [place] [address] 01-25-2023 05:27-0400 Body weight 96.[address] Maggy Roberts Work Phone: 0(284)341-025074 [place] [address] 01-24-2023 16:00-0400 Inhaled oxygen flow rate 93 L/min Dr. Maggy Roberts Work Phone: [facility] 01-23-2023 14:42-0400 Body height 185.[address] Maggy Roberts Work Phone: [facility] 01-21-2023 11:32-0400 Body temperature 97.8 [degF] Dr. Maggy Roberts Work Phone: [facility] 01-21-2023 11:32-0400 Diastolic blood pressure 55 mm[Hg] Dr. Maggy Roberts Work Phone: [facility] 01-21-2023 11:32-0400 Heart rate 83 /min Dr. Maggy Roberts Work Phone: [facility] 01-21-2023 11:32-0400 Respiratory rate 23 /min Dr. Maggy Roberts Work Phone: [facility] 01-21-2023 11:32-0400 SaO2% (BldA) [Mass fraction] 93 % Dr. Maggy Roberts Work Phone: [facility] 01-21-2023 11:32-0400 Systolic blood pressure 133 mm[Hg] Dr. Maggy Roberts Work Phone: [facility] 01-21-2023 08:21-0400 Body height 185.[address] Maggy Roberts Work Phone: 3(329)765-326774 [place] [address] 01-21-2023 08:21-0400 Body mass index (BMI) [Ratio] 28.9 kg/m2 Dr. Maggy Roberts Work Phone: 8(473)911-896874 [place] [address] 01-21-2023 08:21-0400 Body weight 99.[address] Maggy Roberts Work Phone: 8(752)492-328409 [address] 01-08-2023 11:58-0400 Body temperature 98.3 [degF] Dr. Maggy Roberts Work Phone: 3(576)816-509864 [place] [address] 01-08-2023 11:58-0400 Diastolic blood pressure 70 mm[Hg] Dr. Maggy Roberts Work Phone: 3(388)174-571109 [address] 01-08-2023 11:58-0400 Heart rate 60 /min Dr. Maggy Roberts Work Phone: 1(317)550-050374 [place] [address] 01-08-2023 11:58-0400 Respiratory rate 14 /min Dr. Maggy Roberts Work Phone: 9(458)099-872464 [place] [address] 01-08-2023 11:58-0400 SaO2% (BldA) [Mass fraction] 96 % Dr. Maggy Roberts Work Phone: 9(427)974-945574 [place] [address] 01-08-2023 11:58-0400 Systolic blood pressure 108 mm[Hg] Dr. Maggy Roberts Work Phone: 9(766)427-767074 [place] [address] 01-08-2023 06:00-0400 Body mass index (BMI) [Ratio] 38.4 kg/m2 Dr. Maggy Roberts Work Phone: 2(563)541-782474 [place] [address] 01-08-2023 06:00-0400 Body weight [address] Maggy Roberts Work Phone: 2(101)561-031874 [place] [address] 01-04-2023 17:25-0400 Diastolic blood pressure 63 mm[Hg] [facility] 01-04-2023 17:25-0400 Heart rate 63 /min [facility] 01-04-2023 17:25-0400 Respiratory rate 12 /min [facility] 01-04-2023 17:25-0400 SaO2% (BldA) [Mass fraction] 98 % [facility] 01-04-2023 17:25-0400 Systolic blood pressure 138 mm[Hg] [facility] 01-04-2023 16:19-0400 Body temperature 96.9 [degF] [facility] 01-04-2023 11:15-0400 Body mass index (BMI) [Ratio] 30.4 kg/m2 [facility] 01-04-2023 11:15-0400 Body weight 104.7 kg [facility] 01-04-2023 10:59-0400 Body height 185.42 cm [facility] 09-07-2022 11:01-0500 Body height 185.4 cm Jojo Kaur MD Work Phone: [facility] 09-07-2022 11:01-0500 Body weight 113.4 kg Jojo Kaur MD Work Phone: [facility] 09-07-2022 11:01-0500 Diastolic blood pressure 57 mm[Hg] Jojo Kaur MD Work Phone: [facility] 09-07-2022 11:01-0500 Heart rate 64 /min Jojo Kaur MD Work Phone: [facility] 09-07-2022 11:01-0500 Respiratory rate 16 /min Jojo Kaur MD Work Phone: [facility] 09-07-2022 11:01-0500 SaO2% (BldA) [Mass fraction] 99 % Jojo Kaur MD Work Phone: [facility] 09-07-2022 11:01-0500 Systolic blood pressure 124 mm[Hg] Jojo Kaur MD Work Phone: [facility] 08-09-2022 16:35-0500 Body weight 113.4 kg Abdulaziz Caldera MD Work Phone: [facility] 08-09-2022 16:35-0500 Diastolic blood pressure 62 mm[Hg] Abdulaziz Caldera MD Work Phone: [facility] 08-09-2022 16:35-0500 Heart rate 64 /min Abdulaziz Caldera MD Work Phone: [facility] 08-09-2022 16:35-0500 Respiratory rate 16 /min Abdulaziz Caldera MD Work Phone: [facility] 08-09-2022 16:35-0500 SaO2% (BldA) [Mass fraction] 96 % Abdulaziz Caldera MD Work Phone: [facility] 08-09-2022 16:35-0500 Systolic blood pressure 112 mm[Hg] Abdulaziz Caldera MD Work Phone: [facility] 07-11-2022 16:22-0500 Body temperature 97.9 [degF] Dr. Luis Caldera Work Phone: [facility] Work Phone: 07-11-2022 16:22-0500 Diastolic blood pressure 65 mm[Hg] Dr. Luis Caldera Work Phone: [facility] Work Phone: 07-11-2022 16:22-0500 Heart rate 75 /min Dr. Luis Caldera Work Phone: [facility] Work Phone: 07-11-2022 16:22-0500 Respiratory rate 17 /min Dr. Luis Caldera Work Phone: [facility] Work Phone: 07-11-2022 16:22-0500 SaO2% (BldA) [Mass fraction] 96 % Dr. Luis Caldera Work Phone: [facility] Work Phone: 07-11-2022 16:22-0500 Systolic blood pressure 114 mm[Hg] Dr. Luis Caldera Work Phone: [facility] Work Phone: 07-11-2022 03:04-0500 Body weight 114.[address] Luis Caldera Work Phone: [facility] Work Phone: 07-10-2022 14:29-0500 Body height 185.[address] Luis Caldera Work Phone: [facility] Work Phone: 07-10-2022 03:04-0500 Body mass index (BMI) [Ratio] 33.6 kg/m2 Dr. Luis Caldera Work Phone: [facility] Work Phone: 07-09-2022 21:17-0500 Inhaled oxygen flow rate 97 L/min Dr. Luis Caldera Work Phone: [facility] Work Phone: 04-17-2022 11:23-0400 Body height 185.4 cm Jojo Kaur MD Work Phone: [facility] 04-17-2022 11:23-0400 Body weight 114.31 kg Jojo Kaur MD Work Phone: [facility] 04-17-2022 11:23-0400 Diastolic blood pressure 71 mm[Hg] Jojo Kaur MD Work Phone: [facility] 04-17-2022 11:23-0400 Heart rate 72 /min Jooj Kaur MD Work Phone: [facility] 04-17-2022 11:23-0400 Respiratory rate 18 /min Jojo Kaur MD Work Phone: [facility] 04-17-2022 11:23-0400 SaO2% (BldA) [Mass fraction] 98 % Jojo Kaur MD Work Phone: [facility] 04-17-2022 11:23-0400 Systolic blood pressure 116 mm[Hg] Jojo Kaur MD Work Phone: [facility] 04-16-2022 13:09-0400 Body height 185.4 cm Abdulaziz Caldera MD Work Phone: [facility] 04-16-2022 13:09-0400 Body weight 114.31 kg Abdulaziz Caldera MD Work Phone: [facility] 04-16-2022 13:09-0400 Diastolic blood pressure 72 mm[Hg] Abdulaziz Caldera MD Work Phone: [facility] 04-16-2022 13:09-0400 Heart rate 70 /min Abdulaziz Caldera MD Work Phone: [facility] 04-16-2022 13:09-0400 Respiratory rate 16 /min Abdulaziz Caldera MD Work Phone: [facility] 04-16-2022 13:09-0400 SaO2% (BldA) [Mass fraction] 98 % Abdulaziz Caldera MD Work Phone: [facility] 04-16-2022 13:09-0400 Systolic blood pressure 132 mm[Hg] Abdulaziz Caldera MD Work Phone: [facility] 04-06-2022 09:36-0400 Body weight 114.31 kg Roselia Podlogar PERFORATOR TYPIST.CASE MANAGEMENT SOCIAL WORKER Work Phone: [facility] 04-06-2022 09:36-0400 Diastolic blood pressure 62 mm[Hg] Roselia Podlogar PERFORATOR TYPIST.CASE MANAGEMENT SOCIAL WORKER Work Phone: [facility] 04-06-2022 09:36-0400 Heart rate 62 /min Roselia Podlogar PERFORATOR TYPIST.CASE MANAGEMENT SOCIAL WORKER Work Phone: [facility] 04-06-2022 09:36-0400 Respiratory rate 16 /min Roselia Podlogar PERFORATOR TYPIST.CASE MANAGEMENT SOCIAL WORKER Work Phone: [facility] 04-06-2022 09:36-0400 SaO2% (BldA) [Mass fraction] 97 % Roselia Podlogar PERFORATOR TYPIST.CASE MANAGEMENT SOCIAL WORKER Work Phone: [facility] 04-06-2022 09:36-0400 Systolic blood pressure 112 mm[Hg] Roselia Madrigal APRN.CASE MANAGEMENT SOCIAL WORKER Work Phone: [facility] 03-07-2022 11:12-0400 Body weight 114.76 kg Abdulaziz Caldera MD Work Phone: [facility] 03-07-2022 11:12-0400 Diastolic blood pressure 70 mm[Hg] Abdulaziz Caldera MD Work Phone: [facility] 03-07-2022 11:12-0400 Heart rate 64 /min Abdulaziz Caldera MD Work Phone: [facility] 03-07-2022 11:12-0400 Respiratory rate 16 /min Abdulaziz Caldera MD Work Phone: [facility] 03-07-2022 11:12-0400 Systolic blood pressure 118 mm[Hg] Abdulaziz Caldera MD Work Phone: [facility] 03-05-2022 12:00-0400 Diastolic blood pressure 60 mm[Hg] David Lemon PT [facility] 03-05-2022 12:00-0400 Systolic blood pressure 112 mm[Hg] David Lemon PT [facility] 03-02-2022 19:48-0400 Diastolic blood pressure 79 mm[Hg] Dr. Luis Caldera Work Phone: [facility] Work Phone: 03-02-2022 19:48-0400 Heart rate 77 /min Dr. Luis Caldera Work Phone: [facility] Work Phone: 03-02-2022 19:48-0400 SaO2% (BldA) [Mass fraction] 97 % Dr. Luis Caldera Work Phone: [facility] Work Phone: 03-02-2022 19:48-0400 Systolic blood pressure 131 mm[Hg] Dr. Luis Caldera Work Phone: [facility] Work Phone: 03-02-2022 18:12-0400 Respiratory rate 17 /min Dr. Luis Caldera Work Phone: [facility] Work Phone: 03-02-2022 14:22-0400 Body height 185.[address] Luis Caldera Work Phone: [facility] Work Phone: 03-02-2022 14:22-0400 Body mass index (BMI) [Ratio] 32.3 kg/m2 Dr. Luis Caldera Work Phone: [facility] Work Phone: 03-02-2022 14:22-0400 Body temperature 98.9 [degF] Dr. Luis Caldera Work Phone: [facility] Work Phone: 03-02-2022 14:22-0400 Body weight 111.[address] Luis Caldera Work Phone: [facility] Work Phone: 01-12-2022 08:00-0400 Diastolic blood pressure 78 mm[Hg] David Lemon PT [facility] 01-12-2022 08:00-0400 Systolic blood pressure 130 mm[Hg] David Lemon PT [facility] 01-05-2022 09:56-0400 Body height 185.4 cm Jojo Kaur MD Work Phone: [facility] 01-05-2022 09:56-0400 Body weight 111.58 kg Jojo Kaur MD Work Phone: [facility] 01-05-2022 09:56-0400 Diastolic blood pressure 62 mm[Hg] Jojo Kaur MD Work Phone: [facility] 01-05-2022 09:56-0400 Heart rate 58 /min Jojo Kaur MD Work Phone: [facility] 01-05-2022 09:56-0400 Respiratory rate 16 /min Jojo Kaur MD Work Phone: [facility] 01-05-2022 09:56-0400 SaO2% (BldA) [Mass fraction] 97 % Jojo Kaur MD Work Phone: [facility] 01-05-2022 09:56-0400 Systolic blood pressure 117 mm[Hg] Jojo Kaur MD Work Phone: [facility] 01-01-2022 10:12-0400 Body temperature 97.39 [degF] Abdulaziz Caldera MD Work Phone: [facility] 01-01-2022 10:12-0400 Body weight 111.77 kg Abdulaziz Caldera MD Work Phone: [facility] 01-01-2022 10:12-0400 Diastolic blood pressure 64 mm[Hg] Abdulaziz Caldera MD Work Phone: [facility] 01-01-2022 10:12-0400 Heart rate 47 /min Abdulaziz Caldera MD Work Phone: [facility] 01-01-2022 10:12-0400 Respiratory rate 18 /min Abdulaziz Caldera MD Work Phone: [facility] 01-01-2022 10:12-0400 SaO2% (BldA) [Mass fraction] 98 % Abdulaziz Caldera MD Work Phone: [facility] 01-01-2022 10:12-0400 Systolic blood pressure 112 mm[Hg] Abdulaziz Caldera MD Work Phone: [facility] 01-01-2022 08:55-0400 Body weight 112.49 kg Justina Monique APRN.CASE MANAGEMENT SOCIAL WORKER Work Phone: [facility] 01-01-2022 08:55-0400 Diastolic blood pressure 74 mm[Hg] Justina Monique APRN.CASE MANAGEMENT SOCIAL WORKER Work Phone: [facility] 01-01-2022 08:55-0400 Heart rate 60 /min Justina Monique APRN.CASE MANAGEMENT SOCIAL WORKER Work Phone: [facility] 01-01-2022 08:55-0400 Respiratory rate 18 /min Justinaeric Monique APRN.CASE MANAGEMENT SOCIAL WORKER Work Phone: [facility] 01-01-2022 08:55-0400 Systolic blood pressure 147 mm[Hg] Jusitna Monique APRN.CASE MANAGEMENT SOCIAL WORKER Work Phone: [facility] 12-29-2021 08:54-0400 Heart rate 69 /min Dr. Luis Caldera Work Phone: [facility] Work Phone: 12-29-2021 08:50-0400 Body temperature 97.7 [degF] Dr. Luis Caldera Work Phone: [facility] Work Phone: 12-29-2021 08:50-0400 Diastolic blood pressure 68 mm[Hg] Dr. Luis Caldera Work Phone: [facility] Work Phone: 12-29-2021 08:50-0400 Respiratory rate 18 /min Dr. Luis Caldera Work Phone: [facility] Work Phone: 12-29-2021 08:50-0400 SaO2% (BldA) [Mass fraction] 96 % Dr. Luis Caldera Work Phone: [facility] Work Phone: 12-29-2021 08:50-0400 Systolic blood pressure 139 mm[Hg] Dr. Luis Caldera Work Phone: [facility] Work Phone: 12-27-2021 22:36-0400 Body height 185.[address] Luis Caldera Work Phone: [facility] Work Phone: 12-27-2021 22:36-0400 Body mass index (BMI) [Ratio] 32.8 kg/m2 Dr. Luis Caldera Work Phone: [facility] Work Phone: 12-27-2021 22:36-0400 Body weight 112.[address] Luis Caldera Work Phone: [facility] Work Phone: 12-27-2021 21:22-0400 Diastolic blood pressure 71 mm[Hg] DR MELANIA WORKMAN MD [facility] 12-27-2021 21:22-0400 Heart rate 73 /min DR MELANIA WORKMAN MD [facility] 12-27-2021 21:22-0400 Respiratory rate 24 /min DR MELANIA WORKMAN MD [facility] 12-27-2021 21:22-0400 Systolic blood pressure 121 mm[Hg] DR MELANIA WORKMAN MD [facility] 12-27-2021 20:06-0400 Diastolic blood pressure 59 mm[Hg] DR MELANIA WORKMAN MD [facility] 12-27-2021 20:06-0400 Heart rate 80 /min DR MELANIA WORKMAN MD [facility] 12-27-2021 20:06-0400 Respiratory rate 26 /min DR MELANIA WORKMAN MD [facility] 12-27-2021 20:06-0400 Systolic blood pressure 112 mm[Hg] DR MELANIA WORKMAN MD [facility] 12-27-2021 19:19-0400 Body temperature 98.6 [degF] DR MELANIA WORKMAN MD [facility] 12-27-2021 19:19-0400 Diastolic blood pressure 76 mm[Hg] DR MELANIA WORKMAN MD [facility] 12-27-2021 19:19-0400 Heart rate 82 /min DR MELANIA WORKMAN MD [facility] 12-27-2021 19:19-0400 Respiratory rate 26 /min DR MELANIA WORKMAN MD [facility] 12-27-2021 19:19-0400 Systolic blood pressure 138 mm[Hg] DR MELANIA WORKMAN MD [facility] 12-27-2021 17:36-0400 Body temperature 102.56 [degF] DR MELANIA WORKMAN MD [facility] 12-27-2021 17:36-0400 Body weight [address] MELANIA WORKMAN MD [facility] 12-27-2021 17:36-0400 Heart rate 104 /min DR MELANIA WORKMAN MD [facility] 12-14-2021 15:10-0400 Body temperature 98.2 [degF] Abdulaziz Caldera MD Work Phone: [facility] 12-14-2021 15:10-0400 Body weight 110.77 kg Abdulaziz Caldera MD Work Phone: [facility] 12-14-2021 15:10-0400 Diastolic blood pressure 70 mm[Hg] Abdulaziz Caldera MD Work Phone: [facility] 12-14-2021 15:10-0400 Heart rate 54 /min Abdulaziz Caldera MD Work Phone: [facility] 12-14-2021 15:10-0400 Respiratory rate 16 /min Abdulaziz Caldera MD Work Phone: [facility] 12-14-2021 15:10-0400 SaO2% (BldA) [Mass fraction] 96 % Abdulaziz Caldera MD Work Phone: [facility] 12-14-2021 15:10-0400 Systolic blood pressure 130 mm[Hg] Abdulaziz Caldera MD Work Phone: [facility] 12-08-2021 16:23-0400 Diastolic blood pressure 64 mm[Hg] Abdulaziz Caldera MD Work Phone: [facility] 12-08-2021 16:23-0400 Heart rate 85 /min Abdulaziz Caldera MD Work Phone: [facility] 12-08-2021 16:23-0400 Systolic blood pressure 110 mm[Hg] Abdulaziz Caldera MD Work Phone: [facility] 12-07-2021 00:58-0400 SaO2% (BldA) [Mass fraction] 97 % [facility] Work Phone: 12-06-2021 22:59-0400 Body height 185.42 cm [facility] Work Phone: 12-06-2021 22:59-0400 Body mass index (BMI) [Ratio] 33.6 kg/m2 [facility] Work Phone: 12-06-2021 22:59-0400 Body temperature 97.7 [degF] [facility] Work Phone: 12-06-2021 22:59-0400 Body weight 115.66 kg [facility] Work Phone: 12-06-2021 22:59-0400 Diastolic blood pressure 78 mm[Hg] [facility] Work Phone: 12-06-2021 22:59-0400 Heart rate 90 /min [facility] Work Phone: 12-06-2021 22:59-0400 Respiratory rate 16 /min [facility] Work Phone: 12-06-2021 22:59-0400 Systolic blood pressure 149 mm[Hg] [facility] Work Phone: 10-23-2021 13:05-0400 Body temperature 97.3 [degF] Marcella Grapeville PA-C Work Phone: [facility] 10-23-2021 13:05-0400 Body weight 114.58 kg Marcella Grapeville PA-C Work Phone: [facility] 10-23-2021 13:05-0400 Diastolic blood pressure 56 mm[Hg] Marcella Grapeville PA-C Work Phone: [facility] 10-23-2021 13:05-0400 Heart rate 85 /min Marcella Grapeville PA-C Work Phone: [facility] 10-23-2021 13:05-0400 SaO2% (BldA) [Mass fraction] 98 % Marcella Xavier PA-C Work Phone: [facility] 10-23-2021 13:05-0400 Systolic blood pressure 132 mm[Hg] Marcella Grapeville PA-C Work Phone: [facility] 10-10-2021 10:07-0400 Diastolic blood pressure 68 mm[Hg] Richard Jones MD Work Phone: [facility] 10-10-2021 10:07-0400 Heart rate 69 /min Richard Jones MD Work Phone: [facility] 10-10-2021 10:07-0400 Respiratory rate 16 /min Richard Jones MD Work Phone: [facility] 10-10-2021 10:07-0400 SaO2% (BldA) [Mass fraction] 98 % Richard Jones MD Work Phone: [facility] 10-10-2021 10:07-0400 Systolic blood pressure 150 mm[Hg] Richard Jones MD Work Phone: [facility] 10-10-2021 08:01-0400 Body temperature 97 [degF] Richard Jones MD Work Phone: [facility] Encounters Encounter Date Encounter Type Care Provider Facility Start: 05-24-2025 ambulatory Walter Deperro OLS Facili ty:[facility] Start: 05-11-2025 End: 05-11-2025 ambulatory [facility] Facility:[facility] Start: 05-03-2025 ambulatory Walter Deperro OLS Facili ty:[facility] Start: 05-01-2025 ambulatory Walter Deperro Sr. Facili ty:[facility] Start: 04-29-2025 ambulatory Walter Deperro OLS Facili ty:[facility] Start: 04-09-2025 ambulatory Walter Deperro OLS Facili ty:[facility] Start: 03-22-2025 End: 03-22-2025 Debi Rashard [facility] Work Phone: Start: 03-22-2025 End: 03-22-[address] Luis Caldera MD Work Phone: -[facility] Start: 03-22-2025 End: 03-22-[address] Luis Caldera MD Work Phone: -[facility] Start: 03-22-2025 End: 03-22-2025 Deangelo LOONEY -[facility] Work Phone: Start: 03-16-2025 End: 03-16-[address] Luis Caldera MD Work Phone: -Cardiovascular Services Start: 03-16-2025 End: 03-16-2025 Dr. Aneesh Ac MD -[facility] Start: 03-16-2025 End: 03-16-2025 ambulatory Meghana Cole Facility:[facility] Start: 03-03-2025 End: 03-03-[address] Luis Caldera MD Work Phone: -[facility] Start: 03-03-2025 End: 03-03-2025 Meghana Cole NE -[facility] Work Phone: Start: 02-27-2025 End: 02-28-2025 Dr. Luis Caldera MD Work Phone: -Emergency Department Work Phone: Start: 02-27-2025 End: 02-28-2025 Emergency department patient visit Dr. Luis Caldera MD Work Phone: -Emergency Department Start: 02-26-2025 ambulatory Kuldip Tarrant Facility:[facility] Start: 02-26-2025 Walter Becker MD -[facility] Start: 02-25-2025 ambulatory Kuldip Harjeet Facility:[facility] Start: 02-25-2025 Walter Becker MD -[facility] Start: 02-22-2025 ambulatory [place] [facility] Start: 02-22-2025 Walter Becker MD -[facility] Start: 02-18-2025 ambulatory Kuldip Tarrant Facility:[facility] Start: 02-18-2025 Walter Becker MD -[facility] Start: 02-17-2025 ambulatory Kuldip Tarrant Facility:[facility] Start: 02-17-2025 Walter Becker MD -[facility] Start: 02-16-2025 ambulatory Kuldip Tarrant Facility:[facility] Start: 02-16-2025 [facility] Start: 02-15-2025 ambulatory Kuldip Tarrant Facility:[facility] Start: 02-15-2025 Walter Becker MD -[facility] Start: 02-11-2025 Dr. Hugo Cervantes MD [facility] Work Phone: Start: 02-10-2025 [facility] Start: 02-10-2025 Dr. Hugo Cervantes MD [facility] Work Phone: Start: 02-10-2025 End: 02-10-2025 ambulatory [facility] Start: 02-10-2025 End: 02-10-2025 Dr. Júnior Chandra MD -[facility] Work Phone: Start: 02-09-2025 [facility] Start: 02-09-2025 Dr. Hugo Cervantes MD [facility] Work Phone: Start: 02-08-2025 Dr. Hugo Cervantes MD [facility] Work Phone: Start: 02-07-2025 Dr. Hugo Cervantes MD [facility] Work Phone: Start: 02-06-2025 Dr. Hugo Cervantes MD [facility] Work Phone: Start: 02-05-2025 Dr. Hugo Cervantes MD [facility] Work Phone: Start: 02-04-2025 Dr. Hugo Cervantes MD [facility] Work Phone: Start: 02-04-2025 Meghana LOZA -[facility] Start: 02-03-2025 ambulatory [facility] Start: 02-03-2025 [facility] Start: 02-03-2025 Dr. Hugo Cervantes MD [facility] Work Phone: Start: 02-02-2025 ambulatory Kee Mejia Facilit y:[facility] Start: 02-02-2025 End: 02-11-2025 Evaluation and management of inpatient Dr. Karen Aly MD -Progressive Care Unit Work Phone: Start: 02-02-2025 End: 02-11-2025 Dr. Hugo Cervantes MD -[facility] Work Phone: Start: 12-22-2024 Registered Referred Walter [facility] MD -[facility] Start: 12-22-2024 Walter Becker MD -[facility] Start: 12-22-2024 End: 12-22-2024 ambulatory Walter MAYORGA Facility:[facility] Start: 12-16-2024 ambulatory Luis Caldera Faci lity:[facility] Start: 12-16-2024 Registered Referred Walter Becker MD -[facility] Start: 12-16-2024 Walter Becker MD -[facility] Start: 11-24-2024 ambulatory Luis Caldera Faci lity:[facility] Start: 11-24-2024 Registered Referred Walter Becker MD -[facility] Start: 11-24-2024 Walter Becker MD -[facility] Start: 10-12-2024 End: 10-12-[address] Olga Lidia Rasheed MD -[facility] Work Phone: Start: 10-12-2024 End: 10-12-2024 ambulatory Luis Caldera Facility:[facility] Start: 10-05-2024 End: 10-05-[address] Luis Caldera MD Work Phone: [facility] Work Phone: Start: 10-05-2024 End: 10-05-2024 Departed Referred Walter Becker MD -[facility] Start: 10-05-2024 [facility] Start: 10-05-2024 End: 10-05-2024 ambulatory Luis Caldera Facility:[facility] Start: 09-29-2024 End: 09-29-[address] Luis Caldera MD Work Phone: [facility] Work Phone: Start: 09-29-2024 End: 09-29-2024 Departed Referred Walter Becker MD -[facility] Start: 09-29-2024 End: 09-29-2024 ambulatory Luis Caldera Facility:[facility] Start: 08-04-2024 End: 08-04-2024 Departed Referred Walter Becker MD -[facility] Start: 08-04-2024 End: 08-04-2024 ambulatory Walter MAYORGA Facility:[facility] Start: 07-27-2024 End: 07-27-2024 Departed Referred [facility] Start: 07-27-2024 End: 07-27-2024 ambulatory Walter MAYORGA Facility:[facility] Start: 07-07-2024 End: 07-07-2024 Departed Referred [facility] MD -[facility] Start: 07-07-2024 End: 07-07-2024 ambulatory Walter MAYORGA Facility:[facility] Start: 07-01-2024 ambulatory Walter MAYORGA Facili ty:[facility] Start: 07-01-2024 Registered Referred [facility] Start: 06-01-2024 End: 06-01-2024 ambulatory Kee Oliverary Facility:[facility] Start: 10-25-[address] Adam Caldera Work Phone: [facility] Start: 10-16-2023 End: 10-16-[address] Luis Caldera Work Phone: [facility] Work Phone: Start: 10-16-2023 End: 10-16-[address] Luis Caldera Work Phone: [facility] Start: 10-16-[address] Adam Caldera Work Phone: [facility] Start: 10-08-2023 End: 10-08-[address] Luis Caldera Work Phone: [facility] Work Phone: Start: 10-08-2023 End: 10-08-[address] Luis Caldera Work Phone: [facility] Start: 10-08-[address] Adam Caldera Work Phone: [facility] Start: 10-07-2023 End: 10-07-[address] Luis Caldera Work Phone: [facility] Work Phone: Start: 10-04-2023 End: 10-04-[address] Luis Caldera Work Phone: [facility] Work Phone: Start: 10-04-2023 End: 10-04-[address] Luis Caldera Work Phone: [facility] Start: 10-01-2023 End: 10-01-[address] Luis Caldera Work Phone: [facility] Work Phone: Start: 10-01-2023 End: 10-01-[address] Luis Caldera Work Phone: [facility] Start: 10-01-2023 Registered Referred [facility] Start: 09-25-2023 End: 09-25-2023 ambulatory [facility] Work Phone: Start: 09-25-2023 End: 09-25-2023 Departed Referred [facility] Start: 09-18-2023 End: 09-18-2023 ambulatory [facility] Work Phone: Start: 09-18-2023 End: 09-18-2023 Departed Referred [facility] Start: 09-18-2023 Registered Referred [facility] Start: 09-13-2023 End: 09-13-2023 ambulatory [facility] Work Phone: Start: 09-13-2023 End: 09-13-2023 Departed Referred [facility] Start: 09-13-2023 Registered Referred [facility] Start: 09-12-2023 End: 09-12-2023 ambulatory [facility] Work Phone: Start: 09-12-2023 End: 09-12-2023 Departed Referred [facility] Start: 09-12-2023 Registered Referred [facility] Start: 09-09-2023 End: 09-09-2023 ambulatory [facility] Work Phone: Start: 09-09-2023 End: 09-09-2023 Departed Referred [facility] Start: 09-09-2023 Registered Referred [facility] Start: 08-26-2023 End: 08-26-2023 ambulatory [facility] Work Phone: Start: 08-26-2023 End: 08-26-2023 Departed Referred [facility] Start: 08-26-2023 Registered Referred [facility] Start: 08-19-2023 End: 08-19-2023 ambulatory [facility] Work Phone: Start: 08-19-2023 End: 08-19-2023 Departed Referred [facility] Start: 08-19-2023 Registered Referred [facility] Start: 08-12-2023 End: 08-12-2023 ambulatory [facility] Work Phone: Start: 08-12-2023 End: 08-12-2023 Departed Referred [facility] Start: 08-12-2023 Registered Referred [facility] Start: 08-05-2023 End: 08-05-2023 ambulatory [facility] Work Phone: Start: 08-05-2023 End: 08-05-2023 Departed Referred [facility] Start: 08-05-2023 Registered Referred [facility] Start: 07-29-2023 End: 07-29-2023 ambulatory [facility] Work Phone: Start: 07-29-2023 End: 07-29-2023 Departed Referred [facility] Start: 07-22-2023 End: 07-22-2023 ambulatory [facility] Work Phone: Start: 07-22-2023 End: 07-22-2023 Departed Referred [facility] Start: 07-22-[address] Adam Caldera Work Phone: [facility] Start: 07-19-2023 End: 07-19-2023 ambulatory [facility] Work Phone: Start: 07-19-2023 End: 07-19-2023 Departed Referred [facility] Start: 07-19-[address] Adam Caldera Work Phone: [facility] Start: 07-17-2023 End: 07-17-2023 ambulatory [facility] Work Phone: Start: 07-17-2023 End: 07-17-2023 Departed Referred [facility] Start: 07-17-[address] Adam Caldera Work Phone: [facility] Start: 07-10-2023 End: 07-10-[address] Luis Caldera Work Phone: [facility] Work Phone: Start: 07-10-2023 End: 07-10-[address] Luis Caldera Work Phone: [facility] Start: 07-03-2023 End: 07-03-[address] Luis Caldera Work Phone: [facility] Work Phone: Start: 07-03-2023 End: 07-03-[address] Luis Caldera Work Phone: [facility] Start: 07-03-[address] Adam Caldera Work Phone: [facility] Start: 06-26-2023 End: 06-26-[address] Luis Caldera Work Phone: [facility] Work Phone: Start: 06-26-2023 End: 06-26-[address] Luis Caldera Work Phone: [facility] Start: 06-26-[address] Adam Caldera Work Phone: [facility] Start: 06-25-2023 End: 06-25-[address] Luis Caldera Work Phone: [facility] Work Phone: Start: 06-25-2023 End: 06-25-[address] Luis Caldera Work Phone: [phone] [place] [address] Start: 06-25-[address] Adam Caldera Work Phone: [facility] Start: 06-24-2023 End: 06-24-[address] Luis Caldera Work Phone: [facility] Work Phone: Start: 06-24-2023 End: 06-24-[address] Luis Caldera Work Phone: [facility] Start: 06-24-[address] Adam Caldera Work Phone: [facility] Start: 06-17-2023 End: 06-17-[address] Luis Caldera Work Phone: [facility] Work Phone: Start: 06-17-2023 End: 06-17-[address] Luis Caldera Work Phone: [facility] Start: 06-10-2023 End: 06-10-[address] Luis Caldera Work Phone: [facility] Work Phone: Start: 06-10-2023 End: 06-10-[address] Luis Caldera Work Phone: [facility] Start: 06-10-[address] Adam Caldera Work Phone: [facility] Start: 06-03-2023 End: 06-03-2023 Admission to same day surgery center Dr. Luis Caldera Work Phone: [facility] Start: 06-03-2023 End: 06-03-[address] Luis Caldera Work Phone: [facility] Work Phone: Start: 06-03-2023 End: 06-03-2023 Dr. Luis Caldera Work Phone: [facility] Start: 05-20-2023 End: 05-20-[address] Luis Caldera Work Phone: [facility] Work Phone: Start: 05-20-2023 End: 05-20-[address] Luis Caldera Work Phone: [facility] Start: 05-20-2023 End: 05-20-2023 Dr. Luis Caldera Work Phone: [facility] Start: 05-15-2023 End: 05-15-[address] Luis Caldera Work Phone: [facility] Work Phone: Start: 05-15-2023 End: 05-15-[address] Luis Caldera Work Phone: [facility] Start: 05-15-2023 End: 05-15-2023 Dr. Luis Caldera Work Phone: [facility] Start: 05-06-2023 End: 05-06-[address] Luis Caldera Work Phone: [facility] Work Phone: Start: 05-06-2023 End: 05-06-[address] Luis Caldera Work Phone: [facility] Start: 05-06-2023 End: 05-06-2023 Dr. Luis Caldera Work Phone: [facility] Start: 04-29-2023 End: 04-29-[address] Maggy Roberts Work Phone: [facility] Work Phone: Start: 04-29-2023 End: 04-29-[address] Luis Caldera Work Phone: [facility] Start: 04-29-2023 End: 04-29-2023 Dr. Maggy Roberts Work Phone: [facility] Start: 04-15-2023 End: 04-15-[address] Luis Caldera Work Phone: [facility] Start: 04-15-2023 End: 04-15-2023 Dr. Maggy Roberts Work Phone: [facility] Start: 04-09-2023 End: 04-09-[address] Maggy Roberts Work Phone: [facility] Work Phone: Start: 04-09-2023 End: 04-09-[address] Luis Caldera Work Phone: [facility] Start: 04-09-2023 End: 04-09-2023 Dr. Maggy Roberts Work Phone: [facility] Start: 04-08-2023 End: 04-08-[address] Luis Caldera Work Phone: [facility] Start: 04-08-2023 End: 04-08-2023 Dr[facility] Start: 04-01-2023 End: 04-01-[address] Maggy Roberts Work Phone: [facility] Work Phone: Start: 04-01-2023 End: 04-01-[address] Luis Caldera Work Phone: [facility] Start: 04-01-2023 End: 04-01-2023 Dr. Maggy Roberts Work Phone: [facility] Start: 03-27-2023 End: 03-27-[address] Luis Caldera Work Phone: [facility] Work Phone: Start: 03-27-2023 End: 03-27-2023 Dr. Maggy Roberts Work Phone: [facility] Work Phone: Start: 03-25-2023 End: 03-25-[address] Maggy Roberts Work Phone: [facility] Work Phone: Start: 03-25-2023 End: 03-25-[address] Luis Caldera Work Phone: [facility] Start: 03-25-2023 End: 03-25-2023 Dr. Maggy Roberts Work Phone: [facility] Start: 03-11-2023 End: 03-11-[address] Maggy Roberts Work Phone: [facility] Work Phone: Start: 03-11-2023 End: 03-11-[address] Luis Caldera Work Phone: [facility] Start: 03-11-2023 End: 03-11-2023 Dr. Maggy Roberts Work Phone: [facility] Start: 03-04-[address] Adam Caldera Work Phone: [facility] Start: 03-04-2023 Dr. Maggy Bonilla line Work Phone: [facility] Start: 03-01-[address] Adam Caldera Work Phone: [facility] Start: 03-01-2023 Dr. Maggy Bonilla line Work Phone: [facility] Start: 02-25-[address] Adam Caldera Work Phone: [facility] Start: 02-25-2023 Dr. Maggy Bonilla line Work Phone: [facility] Start: 02-22-[address] Adam Caldera Work Phone: [facility] Start: 02-22-2023 Dr. Maggy Bonilla line Work Phone: [facility] Start: 02-20-2023 Dr. Maggy Bonilla line Work Phone: [facility] Start: 02-18-2023 End: 02-18-2023 Dr. Maggy Roberts Work Phone: [facility] Work Phone: Start: 02-14-2023 Dr. Maggy Bonilla line Work Phone: [facility] Start: 02-13-2023 Dr. Maggy Bonilla line Work Phone: [facility] Work Phone: Start: 02-12-2023 Dr. Mgagy Bonilla line Work Phone: [facility] Work Phone: Start: 02-12-2023 Dr. Maggy benavides Work Phone: [facility] Start: 02-11-2023 End: 02-13-2023 Evaluation and management of inpatient Dr. Maggy Roberts Work Phone: [facility] Work Phone: Start: 02-11-2023 End: 02-13-2023 Dr. Maggy Roberts Work Phone: [facility] Surgical 3 Work Phone: Start: 02-10-2023 End: 02-11-2023 Emergency department patient visit Dr. Maggy Roberts Work Phone: [facility] Work Phone: Start: 02-10-2023 End: 02-11-2023 Dr. Maggy Roberts Work Phone: [facility]-Emergency Department Work Phone: Start: 02-07-2023 Dr. Maggy benavides Work Phone: [facility] Start: 02-05-2023 Dr. Maggy benavides Work Phone: [facility] Work Phone: Start: 02-05-2023 End: 02-05-2023 Dr. Maggy Roberts Work Phone: [facility] Work Phone: Start: 02-04-2023 Dr. Maggy Bonilla line Work Phone: [facility] Work Phone: Start: 02-03-2023 End: 02-05-2023 Dr. Maggy Roberts Work Phone: [facility] Work Phone: Start: 02-02-2023 Dr. Maggy Bonilla line Work Phone: [facility] Work Phone: Start: 02-01-2023 Dr. Maggy Bonilla line Work Phone: [facility] Start: 02-01-2023 Dr. Maggy Bonilla line Work Phone: [facility] Work Phone: Start: 01-31-2023 Dr. Maggy Bonilla line Work Phone: [facility] Start: 01-31-2023 Dr. Maggy Bonilla line Work Phone: [facility] Work Phone: Start: 01-30-2023 Dr. Maggy Bonilla line Work Phone: [facility] Start: 01-30-2023 Dr. Maggy Bonilla line Work Phone: [facility] Start: 01-29-2023 Dr. Maggy Bonilla line Work Phone: [facility] Work Phone: Start: 01-29-2023 Dr. Maggy Bonilla line Work Phone: [facility] Start: 01-28-2023 Telephone encounter Luis Caldera MD Work Phone: [facility] [place] Comment on above: Immunizations Start: 01-28-2023 Dr. Maggy Bonilla line Work Phone: [facility] Work Phone: Start: 01-28-2023 End: 01-28-2023 Dr. Maggy Roberts Work Phone: [facility] Work Phone: Start: 01-27-2023 Evaluation and management of inpatient Dr. Maggy Roberts Work Phone: [facility] Work Phone: Start: 01-27-2023 End: 02-05-2023 Dr. Maggy Roberts Work Phone: [facility] Work Phone: Start: 01-26-2023 Non-patient / Non-visit Dr. Eddie Roberts Work Phone: [facility] Start: 01-26-2023 Dr. Maggy benavides Work Phone: [facility] Start: 01-26-2023 Non-patient / Non-visit Dr. Eddie Roberts Work Phone: [facility] Work Phone: Start: 01-26-2023 Dr. Maggy Bonilla line Work Phone: [facility] Work Phone: Start: 01-25-2023 Non-patient / Non-visit Dr. Eddie Roberts Work Phone: [facility] Start: 01-25-2023 Dr. Maggy Bonilla line Work Phone: [facility] Start: 01-25-2023 Non-patient / Non-visit Dr. Eddie Roberts Work Phone: [facility] Work Phone: Start: 01-25-2023 Dr. Maggy Bonilla line Work Phone: [facility] Work Phone: Start: 01-24-2023 Non-patient / Non-visit Dr. Eddie Roberts Work Phone: [facility] Start: 01-24-2023 Dr. Maggy Bonilla line Work Phone: [facility] Start: 01-24-2023 Telephone encounter Luis Caldera MD Work Phone: [facility] Comment on above: Patient Update Start: 01-24-2023 Non-patient / Non-visit Dr. Eddie Roberts Work Phone: [facility] Start: 01-24-2023 Dr. Maggy Bonilla line Work Phone: [facility] Start: 01-24-2023 Non-patient / Non-visit Dr. Eddie Roberts Work Phone: [facility] Work Phone: Start: 01-24-2023 End: 01-24-2023 Dr. Maggy Roberts Work Phone: [facility] Work Phone: Start: 01-23-2023 Non-patient / Non-visit Dr. Eddie Roberts Work Phone: [facility] Start: 01-23-2023 Dr. Maggy Bonilla line Work Phone: [facility] Start: 01-23-2023 Non-patient / Non-visit Dr. Eddie Roberts Work Phone: [facility] Start: 01-23-2023 Dr. Maggy Bonilla line Work Phone: [facility] Start: 01-22-2023 Non-patient / Non-visit Dr. Eddie Roberts Work Phone: [facility] Start: 01-22-2023 Dr. Maggy Bonilla line Work Phone: [facility] Start: 01-22-2023 Non-patient / Non-visit Dr. Eddie Roberts Work Phone: [facility] Start: 01-22-2023 Dr. Maggy benavides Work Phone: [facility] Start: 01-22-2023 Non-patient / Non-visit Dr. Eddie Roberts Work Phone: [facility] Work Phone: Start: 01-22-2023 Dr. Maggy benavides Work Phone: [facility] Work Phone: Start: 01-21-2023 End: 01-21-2023 Dr. Maggy Roberts Work Phone: [facility] Work Phone: Start: 01-21-2023 Non-patient / Non-visit Dr. Eddie Roberts Work Phone: [facility] Start: 01-21-2023 Dr. Maggy Bonilla line Work Phone: [facility] Start: 01-21-2023 Non-patient / Non-visit Dr. Eddie Roberts Work Phone: [facility] Work Phone: Start: 01-21-2023 Dr. Maggy Bonilla line Work Phone: [facility] Work Phone: Start: 01-21-2023 End: 01-26-2023 Evaluation and management of inpatient Dr. Maggy Roberts Work Phone: [facility] Work Phone: Start: 01-21-2023 End: 01-26-2023 Dr. Maggy Roberts Work Phone: [facility] Work Phone: Start: 01-08-2023 Non-patient / Non-visit Dr. Eddie Roberts Work Phone: [facility] Work Phone: Start: 01-08-2023 Dr. Maggy Bonilla line Work Phone: [facility] Work Phone: Start: 01-07-2023 Non-patient / Non-visit Dr. Eddie Roberts Work Phone: [facility] Work Phone: Start: 01-07-2023 Dr. Maggy Bonilla line Work Phone: [facility] Work Phone: Start: 01-06-2023 Non-patient / Non-visit Dr. Eddie Roberts Work Phone: [facility] Work Phone: Start: 01-06-2023 Dr. Maggy benavides Work Phone: [facility] Work Phone: Start: 01-05-2023 End: 01-08-2023 Evaluation and management of inpatient Dr. Maggy Roberts Work Phone: [facility] Work Phone: Start: 01-05-2023 End: 01-08-2023 Dr. Maggy Roberts Work Phone: [facility] Work Phone: Start: 01-05-2023 Non-patient / Non-visit Dr. Eddie Roberts Work Phone: [facility] Work Phone: Start: 01-05-2023 Dr. Maggy benavides Work Phone: [facility] Work Phone: Start: 01-04-2023 Evaluation and management of inpatient [facility] Start: 01-04-2023 Non-patient / Non-visit Dr. Eddie Roberts Work Phone: [facility] Work Phone: Start: 01-04-2023 observation encounter [facility] Work Phone: Start: 01-04-2023 Dr. Maggy Bonilla line Work Phone: [facility] Work Phone: Start: 01-04-2023 Telephone encounter Luis Caldera MD Work Phone: [facility] Comment on above: Appointment Start: 01-03-2023 Telephone encounter Luis Caldera MD Work Phone: [facility] Comment on above: Appointment; Patient Update Start: 01-03-2023 End: 01-03-2023 ambulatory Justina O'Rafa PT [facility] Comment on above: Spinal stenosis, lum bar region, without neurogenic claudication (Primary Dx); Primary osteoarthritis of both knees Start: 12-31-2022 End: 12-31-2022 ambulatory Ira Kashuba CERAMIC TILER Work Phone: [facility] Comment on above: Spinal stenosis, lum bar region, without neurogenic claudication (Primary Dx); Primary osteoarthritis of both knees Start: 12-27-2022 End: 12-27-2022 ambulatory Ira Kashuba CERAMIC TILER Work Phone: [facility] Comment on above: Spinal stenosis, lum bar region, without neurogenic claudication (Primary Dx); Primary osteoarthritis of both knees Start: 12-24-2022 End: 12-24-2022 ambulatory Justina O'Rafa PT [facility] Comment on above: Spinal stenosis, lum bar region, without neurogenic claudication (Primary Dx); Primary osteoarthritis of both knees Start: 12-17-2022 End: 12-17-2022 ambulatory Justina O'Rafa PT [facility] Comment on above: Spinal stenosis, lum bar region, without neurogenic claudication (Primary Dx); Primary osteoarthritis of both knees Start: 12-14-2022 End: 12-14-2022 ambulatory Justina O'Rafa PT [facility] Comment on above: Spinal stenosis, lum bar region, without neurogenic claudication (Primary Dx); Primary osteoarthritis of both knees Start: 12-12-2022 End: 12-12-2022 ambulatory Justina O'Rafa PT [facility] Comment on above: Spinal stenosis, lum bar region, without neurogenic claudication (Primary Dx); Primary osteoarthritis of both knees Start: 11-20-2022 Refill Abdulaziz Caldera MD Work Phone: [facility] Comment on above: Refill Request Start: 11-19-2022 Telephone encounter Valencia Pascual MA [facility] Comment on above: Anticoagulation Start: 10-22-2022 End: 10-22-2022 Patient encounter procedure Zachary Sawantanny Work Phone: Podiatry Comment on above: Onychomycosis (Prima ry Dx); Pain in toe of left foot; Amputated toe of right foot (HCC); Diabetic polyneuropathy associated with type 2 diabetes mellitus (HCC) Start: 09-25-2022 Telephone encounter Luis Caldera MD Work Phone: [facility] Comment on above: Anticoagulation Start: 09-07-2022 Telephone encounter Jojo galan MD Work Phone: Neurology Comment on above: Appointment Start: 09-07-2022 End: 09-07-2022 Office outpatient visit 25 minutes Jojo Kaur MD Work Phone: Neurology Comment on above: Driving safety issue (Primary Dx) Start: 08-28-2022 Telephone encounter Luis Caldera MD Work Phone: [facility] Comment on above: Anticoagulation Start: 08-16-2022 Refill Abdulaziz Caldera MD Work Phone: [facility] Comment on above: Refill Request Start: 08-14-2022 Telephone encounter Luis Caldera MD Work Phone: [facility] Comment on above: Anticoagulation Start: 08-09-2022 End: 08-09-2022 Patient encounter procedure Abdulaziz Caldera MD Work Phone: [facility] Comment on above: Type 2 [...] Telephone encounter Luis Caldera MD Work Phone: [facility] Comment on above: checking on medicati on Start: 08-06-2022 End: 08-06-2022 Patient encounter procedure Zachary Jaimes MD Work Phone: Otolaryngology Comment on above: Dizziness (Primary D x); Chronic frontal sinusitis Start: 07-31-2022 Telephone encounter Luis Caldera MD Work Phone: [facility] Comment on above: Anticoagulation Start: 07-26-2022 Telephone encounter Luis Caldera MD Work Phone: [facility] Comment on above: Home Health-Nursing Update Start: 07-25-2022 Refill Abdulaziz Caldera MD Work Phone: [facility] Comment on above: Refill Request Start: 07-17-2022 Telephone encounter Luis Caldera MD Work Phone: [facility] Comment on above: [facility] PT POC OT plan of care Start: 07-13-2022 Telephone encounter Luis Caldera MD Work Phone: [facility] Comment on above: Nursing Plan of C are Update Start: 07-12-2022 Telephone encounter Luis Caldera MD Work Phone: [facility] Comment on above: Orders Start: 07-11-2022 Non-patient / Non-visit Dr. Praveen Caldera Work Phone: [facility] Start: 07-11-2022 Non-patient / Non-visit Dr. Praveen Caldera Work Phone: [facility] Start: 07-10-2022 Non-patient / Non-visit Dr. Praveen Caldera Work Phone: [facility] Start: 07-10-2022 Non-patient / Non-visit Dr. Praveen Caldera Work Phone: [facility] Start: 07-09-2022 End: 07-11-2022 Evaluation and management of inpatient Dr. Luis Caldera Work Phone: [facility] Start: 07-09-2022 Refill Amanda Cunningham [facility] Comment on above: Opened In Error Refill Request Start: 07-05-2022 E-mail encounter fro m caregiver Jojo Kaur MD Work Phone: [facility] Start: 07-05-2022 Patient encounter procedure Jojo Kaur MD Work Phone: Neurology Comment on above: Appointment Needs Re scheduled: 08/21/[address] Kaur Start: 06-25-2022 Refill Abdulaziz Caldera MD Work Phone: [facility] Comment on above: Refill Request Start: 05-16-2022 Refill Abdulaziz Caldera MD Work Phone: [facility] Comment on above: Refill Request Start: 04-17-2022 Telephone encounter Justina fry BUNDLE BREAKER Work Phone: Adult Psychology Comment on above: behavioral health so [facility] work Start: 04-17-2022 End: 04-17-2022 Patient encounter procedure Jojo Kaur MD Work Phone: Neurology Comment on above: Generalized anxiety disorder (Primary Dx); Polyneuropathy Start: 04-16-2022 End: 04-16-2022 Patient encounter procedure Abdulaziz Caldera MD Work Phone: [facility] Comment on above: Type 2 diabetes almaz [...] End: 04-06-2022 Patient encounter procedure Roselia Podlogdavid GARCIACASE MANAGEMENT SOCIAL WORKER Work Phone: [facility] Comment on above: Generalized weakness (Primary Dx); Encounter for immunization; Mild depression Start: 04-04-2022 Telephone encounter Luis Caldera MD Work Phone: [facility] Comment on above: Anticoagulation Start: 03-30-2022 End: 03-30-2022 Patient encounter procedure Zachary Obregon Work Phone: Podiatry Comment on above: Onychomycosis (Prima ry Dx); Pain in toe of left foot; Amputated toe of right foot (HCC); Diabetic polyneuropathy associated with type 2 diabetes mellitus (HCC) Start: 03-23-2022 End: 03-23-2022 ambulatory David Caputo [facility] Comment on above: Abnormality of gait due to impairment of balance (Primary Dx) Start: 03-22-2022 Refill Abdulaziz Caldera MD Work Phone: [facility] Comment on above: Refill Request Start: 03-15-2022 End: 03-15-2022 ambulatory Karen Weber CERAMIC TILER Work Phone: [facility] Comment on above: Abnormality of gait due to impairment of balance (Primary Dx) Start: 03-12-2022 End: 03-12-2022 ambulatory Karen Weber CERAMIC TILER Work Phone: [facility] Comment on above: Abnormality of gait due to impairment of balance (Primary Dx) Start: 03-09-2022 End: 03-09-2022 ambulatory David Lemon PT [facility] Comment on above: Abnormality of gait due to impairment of balance (Primary Dx) Start: 03-07-2022 Telephone encounter Luis Caldera MD Work Phone: [facility] Comment on above: Anticoagulation Start: 03-07-2022 End: 03-07-[address] Luis Caldera Work Phone: [facility] Work Phone: Start: 03-07-2022 End: 03-07-[address] Luis Caldera Work Phone: [facility]-Laboratory, Specimen Start: 03-07-2022 End: 03-07-2022 Patient encounter procedure Abdulaziz Caldera MD Work Phone: [facility] Comment on above: Generalized weakness (Primary Dx); Supratherapeutic INR; ANTHONY (acute kidney injury) [facility]) Start: 03-05-2022 End: 03-05-2022 ambulatory David Lemon PT [facility] Comment on above: Abnormality of gait due to impairment of balance (Primary Dx) Start: 03-02-2022 End: 03-02-2022 Emergency department patient visit Dr. Luis Caldera Work Phone: [facility]Emergency Department Start: 03-02-2022 End: 03-02-2022 ambulatory David Lemon PT [facility] Comment on above: Abnormality of gait due to impairment of balance (Primary Dx) Start: 02-26-2022 End: 02-26-2022 ambulatory David Lemon PT [facility] Comment on above: Abnormality of gait due to impairment of balance (Primary Dx) Start: 02-23-2022 End: 02-23-2022 ambulatory Karen Weber CERAMIC TILER Work Phone: [facility] Comment on above: Abnormality of gait due to impairment of balance (Primary Dx) Start: 02-14-2022 End: 02-14-2022 ambulatory David Lemon PT [facility] Comment on above: Abnormality of gait due to impairment of balance (Primary Dx) Start: 02-09-2022 End: 02-09-2022 ambulatory David Lemon PT [facility] Comment on above: Abnormality of gait due to impairment of balance (Primary Dx) Start: 02-06-2022 Refill Abdulaziz Caldera MD Work Phone: [facility] Comment on above: Prescription Refills Start: 02-02-2022 End: 02-02-2022 ambulatory Kaernevelyn Wardter CERAMIC TILER Work Phone: [facility] Comment on above: Abnormality of gait due to impairment of balance (Primary Dx) Start: 01-31-2022 Refill Abdulaziz Caldera MD Work Phone: [facility] Comment on above: Refill Request Start: 01-30-2022 End: 01-30-2022 ambulatory Karen Weber CERAMIC TILER Work Phone: [facility] Comment on above: Abnormality of gait due to impairment of balance (Primary Dx) Start: 01-23-2022 End: 01-23-2022 ambulatory Karen Weber CERAMIC TILER Work Phone: [facility] Comment on above: Abnormality of gait due to impairment of balance (Primary Dx) Refill Request; Refi ll Request Start: 01-17-2022 Telephone encounter Luis Caldera MD Work Phone: [facility] Comment on above: Question Start: 01-12-2022 End: 01-12-2022 ambulatory David Lemon PT [facility] Comment on above: Abnormality of gait due to impairment of balance (Primary Dx) Start: 01-11-2022 Telephone encounter Roselia miguel APRN.CASE MANAGEMENT SOCIAL WORKER Work Phone: [facility] [place] Comment on above: Patient Question; Me dication Question; Referral Request Start: 01-10-2022 Telephone encounter Justina Monique APRN.CASE MANAGEMENT SOCIAL WORKER Work Phone: Cardiology Comment on above: Results [...] type Start: 01-02-2022 Telephone encounter Justina Monique APRN.CASE MANAGEMENT SOCIAL WORKER Work Phone: [facility] Comment on above: Results Start: 01-01-2022 End: 01-01-2022 Patient encounter procedure Justina Monique APRN.CASE MANAGEMENT SOCIAL WORKER Work Phone: Cardiology Comment on above: Hyperlipidemia with target LDL less than 100 (Primary Dx); Primary hypertension; Thoracic aortic aneurysm without rupture (HCC); Coronary artery disease involving pauma coronary artery of pauma heart without angina pectoris; Syncope, unspecified syncope [...] Dr. Praveen Caldera Work Phone: [facility] Start: 12-28-2021 Non-patient / Non-visit Dr. Praveen Caldera Work Phone: [facility] Start: 12-28-2021 End: 12-29-2021 Evaluation and management of inpatient Dr. Luis Caldera Work Phone: [facility] Start: 12-27-2021 Non-patient / Non-visit Dr. Praveen Caldera Work Phone: [facility] Start: 12-27-2021 End: 12-27-2021 Emergency department patient visit DR. MELANIA WORKMAN MD. Facility:[facility] Start: 12-27-2021 End: 12-27-2021 Emergency department patient visit DR MELANIA WORKMAN MD [facility] Start: 12-14-2021 End: 12-14-2021 Patient encounter procedure Abdulaziz Caldera MD Work Phone: [facility] Comment on above: COVID-19 (Primary Dx ) Start: 12-08-2021 End: 12-08-2021 ambulatory Abdulaziz Caldera MD Work Phone: [facility] Comment on above: COVID-19 (Primary Dx ) Start: 12-08-2021 End: 12-08-2021 Telemedicine consultation with patient Abdulaziz Caldera MD Work Phone: [facility] Start: 12-08-2021 Telephone encounter Luis Caldera MD Work Phone: [facility] Comment on above: Patient Question Start: 12-06-2021 End: 12-07-2021 Emergency department patient visit [facility] Start: 11-20-2021 Refill Abdulaziz [...] Telephone encounter Luis Caldera MD Work Phone: [facility] Comment on above: Medication Question [...] red blood cell count procedure Dr. Luis Cadlera MD Work Phone: Start: 02-27-2025 Platelet mean [...] QUADRIVALENT HIGH DOSE AGE 65+ Roselia Podlogar PERFORATOR TYPIST.CASE MANAGEMENT SOCIAL WORKER Work Phone: Start: 04-06-2022 [employer] COVID-19 BIVALENT BOOSTER VACCINE, AGE 12+ YR Roselia Podlogar PERFORATOR TYPIST.CASE MANAGEMENT SOCIAL WORKER Work Phone: Start: 04-06-2022 Adult depression screening assessment Roselia Podlogar PERFORATOR TYPIST.CASE MANAGEMENT SOCIAL WORKER Work Phone: Start: 03-07-2022 PROTHROMBIN TIME/PT Abdulaziz Caldera MD Work Phone: Start: 03-07-2022 Adult depression screening assessment Abdulaziz Caldera MD Work Phone: Start: 03-02-2022 CT of head without contrast Dr. Camron Caldera Work Phone: Start: 03-02-2022 Plain chest X-ray Dr. Luis Caldera Work Phone: Start: 01-09-2022 Echo tthrc r-t 2d w/wom-mode compl spec&colr d Justina E Leonie PERFORATOR TYPIST.CASE MANAGEMENT SOCIAL WORKER Work Phone: Start: 01-01-2022 Urnls dip stick/tablet [...] Activity Detail Author Start: 10-11-2031 Colonoscopy COLONOSCOPY [facility] Start: 10-11-2031 COLORECTAL CANCER SCREENING COLORECTAL CANCER SCREENING [facility] Start: 02-27-2025 [facility] Start: 02-27-2025 End: 02-27-2025 [facility] Start: 02-27-2025 Blood culture [facility] Start: 02-11-2025 [facility] Start: 02-11-2025 Patient discharge [facility] Start: 02-11-2025 Application, wound VAC [facility] Start: 02-11-2025 [facility] Start: 02-10-2025 Elevation of head of bed [facility] Start: 02-10-2025 End: 02-10-2025 [facility] Start: 02-10-2025 Cardiac monitoring [facility] Start: 02-10-2025 Dietary regime [facility] Start: 02-10-2025 Log roll [facility] Start: 02-10-2025 Notification of physician [facility] Start: 02-10-2025 Provision of activit y privileges [facility] Start: 02-10-2025 Pulse taking [facility] Start: 02-09-2025 Catheterization of vein [facility] Start: 02-09-2025 Notification of physician [facility] Start: 02-09-2025 Preoperative care [facility] Start: 02-09-2025 End: 02-09-2025 [facility] Start: 02-08-2025 Consultation [facility] Start: 02-07-2025 [facility] Start: 02-05-2025 [facility] Start: 02-05-2025 Acid fast bacilli culture [facility] Start: 02-05-2025 Acid fast bacilli culture [facility] Start: 02-05-2025 Mycology culture [facility] Start: 02-04-2025 Removal of urinary catheter [facility] Start: 02-04-2025 [facility] Start: 02-03-2025 End: 02-03-2025 [facility] Start: 02-03-2025 Referral to vascular surgeon [facility] Start: 02-03-2025 Following clinical p athway protocol [facility] Start: 02-03-2025 Assessment of risk o f venous thromboembolism [facility] Start: 02-03-2025 Care regimes management [facility] Start: 02-03-2025 Consultation for treatment [facility] Start: 02-03-2025 Elevation of affecte d extremity [facility] Start: 02-03-2025 Fall prevention [facility] Start: 02-03-2025 Inhalation therapy procedure [facility] Start: 02-03-2025 Insertion of cathete r into peripheral vein [facility] Start: 02-03-2025 Introduction of urin barrington catheter [facility] Start: 02-03-2025 Measuring intake and output [facility] Start: 02-03-2025 Methicillin resistan t Staphylococcus aureus screening test [facility] Start: 02-03-2025 Notification of physician [facility] Start: 02-03-2025 Oxygen therapy [facility] Start: 02-03-2025 Providing care accor ding to standard [facility] Start: 02-03-2025 Provision of activit y privileges [facility] Start: 02-03-2025 Referral to occupati onal therapist [facility] Start: 02-03-2025 Referral to conservator artifacts [facility] Start: 02-03-2025 Referral to service [facility] Start: 02-03-2025 Speech therapy assessment [facility] Start: 02-03-2025 Wound care [facility] Start: 02-03-2025 End: 02-03-2025 [facility] Start: 02-03-2025 Patient referral to dietitian [facility] Start: 02-02-2025 Hospital admission, emergency, from emergency room, medical nature [facility] Start: 02-02-2025 Respiratory pathogen s DNA and RNA panel - Respiratory specimen by ANGELY with probe detection [facility] Start: 02-02-2025 Verification routine [facility] Start: 02-02-2025 Admission procedure [facility] Start: 02-02-2025 [facility] Start: 02-02-2025 End: 02-02-2025 [facility] Start: 02-02-2025 Bacteria identified in Blood by Culture Blood Culture [facility] Start: 02-02-2025 Bacteria identified in Urine by Culture Urine Culture [facility] Start: 10-10-2024 Colonoscopy COLONOSCOPY [facility] Start: 10-10-2024 COLORECTAL CANCER SCREENING COLORECTAL CANCER SCREENING [facility] Start: 01-05-2024 ANNUAL PCP TEAM MANAGER MATERIALS MANAGEMENT MARLENE DISEASE VISIT ANNUAL PCP TEAM CHRONIC DISEASE VISIT [facility] Start: 01-05-2024 BP CONTROLLED (<130/80) BP CONTROLLE D (<130/80) [facility] Start: 12-04-2023 BP CONTROLLED (<130/80) BP CONTROLLE D (<130/80) [facility] Start: 11-20-2023 ANNUAL PCP TEAM MANAGER MATERIALS MANAGEMENT MARLENE DISEASE VISIT ANNUAL PCP TEAM CHRONIC DISEASE VISIT [facility] Start: 11-20-2023 BP CONTROLLED (<130/80) BP CONTROLLE D (<130/80) [facility] Start: 09-07-2023 BP CONTROLLED (<130/80) BP CONTROLLE D (<130/80) [facility] Start: 08-13-2023 HEMOGLOBIN/HEMATOCRIT HEMOGLOBIN/HEM ATOCRIT [facility] Start: 08-13-2023 SERUM CREATININE SERUM CREATININE Cl [facility] Start: 08-09-2023 ANNUAL PCP TEAM MANAGER MATERIALS MANAGEMENT MARLENE DISEASE VISIT ANNUAL PCP TEAM CHRONIC DISEASE VISIT [facility] Start: 08-09-2023 BP CONTROLLED (<130/80) BP CONTROLLE D (<130/80) [facility] Start: 07-12-2023 ANNUAL PCP TEAM MANAGER MATERIALS MANAGEMENT MARLENE DISEASE VISIT ANNUAL PCP TEAM CHRONIC DISEASE VISIT [facility] Start: 07-12-2023 BP CONTROLLED (<130/80) BP CONTROLLE D (<130/80) [facility] Start: 06-03-2023 Anes dx/ther nerve block/injection prone pos ANESTH N BLOCK/INJ PRONE [facility] Start: 06-03-2023 Njx dx/ther sbst int rlmnr lmbr/sac w/img gdn NJX INTERLAMINAR LMBR/SAC [facility] Start: 06-03-2023 Injection using fluoroscopic guidance [facility] Start: 06-03-2023 Patient discharge [facility] Start: 04-17-2023 BP CONTROLLED (<130/80) BP CONTROLLE D (<130/80) [facility] Start: 04-16-2023 ANNUAL PCP TEAM MANAGER MATERIALS MANAGEMENT MARLENE DISEASE VISIT ANNUAL PCP TEAM CHRONIC DISEASE VISIT [facility] Start: 04-06-2023 Adult depression scr eening assessment DEPRESSION SCREENING [facility] Start: 04-06-2023 ANNUAL PCP TEAM MANAGER MATERIALS MANAGEMENT MARLENE DISEASE VISIT ANNUAL PCP TEAM CHRONIC DISEASE VISIT [facility] Start: 04-06-2023 BP CONTROLLED (<130/80) BP CONTROLLE D (<130/80) [facility] Start: 03-30-2023 3 comp foot exam completed DIABETIC FOOT EXAM [facility] Start: 03-15-2023 Influenza vaccination INFLUENZA (#1) [facility] Start: 03-07-2023 Adult depression scr eening assessment DEPRESSION SCREENING [facility] Start: 03-07-2023 ANNUAL PCP TEAM MANAGER MATERIALS MANAGEMENT MARLENE DISEASE VISIT ANNUAL PCP TEAM CHRONIC DISEASE VISIT [facility] Start: 03-07-2023 BP CONTROLLED (<130/80) BP CONTROLLE D (<130/80) [facility] Start: 03-07-2023 SERUM CREATININE SERUM CREATININE Cl [facility] Start: 03-05-2023 BP CONTROLLED (<130/80) BP CONTROLLE D (<130/80) [facility] Start: 03-02-2023 Hepatitis B screening URINE ALBUMIN:CREATININE RATIO [facility] Start: 02-13-2023 Patient discharge [facility] Start: 02-12-2023 Care regimes management [facility] Start: 02-12-2023 Notification of physician [facility] Start: 02-12-2023 [facility] Start: 02-12-2023 Blood culture [facility] Start: 02-12-2023 End: 02-12-2023 [facility] Start: 02-11-2023 End: 02-11-2023 Blood culture [facility] Start: 02-11-2023 Assessment of risk o f venous thromboembolism [facility] Start: 02-11-2023 Consultation [facility] Start: 02-11-2023 Insertion of cathete r into peripheral vein [facility] Start: 02-11-2023 Providing care accor ding to standard [facility] Start: 02-11-2023 Provision of activit y privileges [facility] Start: 02-11-2023 Referral to occupati onal therapist [facility] Start: 02-11-2023 Referral to service [facility] Start: 02-11-2023 [facility] Start: 02-11-2023 Admission procedure [facility] Start: 02-11-2023 [facility] Start: 02-11-2023 Patient referral to dietitian [facility] Start: 02-10-2023 End: 02-10-2023 [facility] Start: 02-10-2023 End: 02-10-2023 Blood culture [facility] Start: 02-10-2023 Hemoglobin A1c/Hemoglobin.total in Blood HBA1C [facility] Start: 02-05-2023 Patient discharge [facility] Start: 02-04-2023 Assessment of risk o f venous thromboembolism [facility] Start: 02-04-2023 Bedrest [facility] Start: 02-04-2023 Elevation of head of bed [facility] Start: 02-04-2023 Taking patient vital signs [facility] Start: 02-04-2023 Wound care [facility] Start: 02-04-2023 [facility] Start: 02-04-2023 Catheterization of vein [facility] Start: 02-04-2023 Notification of physician [facility] Start: 02-04-2023 [facility] Start: 02-01-2023 Catheterization of vein [facility] Start: 02-01-2023 Notification of physician [facility] Start: 02-01-2023 [facility] Start: 02-01-2023 [facility] Start: 01-30-2023 Referral to finance business partner [facility] Start: 01-30-2023 End: 01-30-2023 Administration of blood product [facility] Start: 01-29-2023 Speech therapy assessment [facility] Start: 01-29-2023 [facility] Start: 01-28-2023 End: 01-29-2023 [facility] Start: 01-27-2023 Application of intermittent pneumatic compression device [facility] Start: 01-27-2023 Following clinical p athway protocol [facility] Start: 01-27-2023 Methicillin resistan t Staphylococcus aureus screening test [facility] Start: 01-27-2023 Aspiration precautions [facility] Start: 01-27-2023 Assessment of risk o f venous thromboembolism [facility] Start: 01-27-2023 Care regimes management [facility] Start: 01-27-2023 Fall prevention [facility] Start: 01-27-2023 Insertion of cathete r into peripheral vein [facility] Start: 01-27-2023 Introduction of urin barrington catheter [facility] Start: 01-27-2023 Measuring intake and output [facility] Start: 01-27-2023 Providing care accor ding to standard [facility] Start: 01-27-2023 Provision of activit y privileges [facility] Start: 01-27-2023 Referral to gastroenterology service [facility] Start: 01-27-2023 Referral to occupati onal therapist [facility] Start: 01-27-2023 Referral to service [facility] Start: 01-27-2023 [facility] Start: 01-27-2023 Admission procedure [facility] Start: 01-27-2023 CT Chest and Abdomen and Pelvis WO and W contrast IV [facility] Start: 01-27-2023 CT of thorax, abdome n and pelvis with contrast CTA Chst, Abd, Pel W and/or WO [facility] Start: 01-27-2023 Blood chemistry [facility] Start: 01-27-2023 End: 01-28-2023 [facility] Start: 01-27-2023 Patient referral to dietitian [facility] Start: 01-26-2023 Patient discharge [facility] Start: 01-24-2023 Speech therapy assessment [facility] Start: 01-24-2023 Speech therapy assessment [facility] Start: 01-22-2023 Referral to finance business partner [facility] Start: 01-21-2023 Administration of bl ood product [facility] Start: 01-21-2023 Catheterization of vein [facility] Start: 01-21-2023 Application of intermittent pneumatic compression device [facility] Start: 01-21-2023 Following clinical p athway protocol [facility] Start: 01-21-2023 Care regimes management [facility] Start: 01-21-2023 Notification of physician [facility] Start: 01-21-2023 Cardiac monitoring [facility] Start: 01-21-2023 Referral to gastroenterology service [facility] Start: 01-21-2023 End: 01-21-2023 [facility] Start: 01-21-2023 Oxygen therapy [facility] Start: 01-21-2023 Ambulation without limitation [facility] Start: 01-21-2023 Documentation procedure [facility] Start: 01-21-2023 Assessment of risk o f venous thromboembolism [facility] Start: 01-21-2023 Continuous pulse oximetry [facility] Start: 01-21-2023 Insertion of cathete r into peripheral vein [facility] Start: 01-21-2023 Measuring intake and output [facility] Start: 01-21-2023 Providing care accor ding to standard [facility] Start: 01-21-2023 Referral to occupati onal therapist [facility] Start: 01-21-2023 Referral to service [facility] Start: 01-21-2023 Verification routine [facility] Start: 01-21-2023 Vital signs measurements [facility] Start: 01-21-2023 Admission procedure [facility] Start: 01-21-2023 Transfusion of red b lood cells [facility] Start: 01-08-2023 Patient discharge [facility] Start: 01-05-2023 BP CONTROLLED (<130/80) BP CONTROLLE D (<130/80) [facility] Start: 01-05-2023 Admission procedure [facility] Start: 01-05-2023 Telepractice consultation [facility] Start: 01-04-2023 Application of intermittent pneumatic compression device [facility] Start: 01-04-2023 Following clinical p athway protocol [facility] Start: 01-04-2023 Aspiration precautions [facility] Start: 01-04-2023 Assessment of risk o f venous thromboembolism [facility] Start: 01-04-2023 Cardiac monitoring [facility] Start: 01-04-2023 Care regimes management [facility] Start: 01-04-2023 Catheterization of vein [facility] Start: 01-04-2023 Elevation of head of bed [facility] Start: 01-04-2023 Exercises [facility] Start: 01-04-2023 Fall prevention [facility] Start: 01-04-2023 Inhalation therapy procedure [facility] Start: 01-04-2023 Insertion of cathete r into peripheral vein [facility] Start: 01-04-2023 Introduction of urin barrington catheter [facility] Start: 01-04-2023 Measuring intake and output [facility] Start: 01-04-2023 Notification of physician [facility] Start: 01-04-2023 Providing care accor ding to [facility] Start: 01-04-2023 Provision of activit y privileges [facility] Start: 01-04-2023 Referral to occupati onal therapist [facility] Start: 01-04-2023 Referral to service [facility] Start: 01-04-2023 Tobacco use cessatio n education [facility] Start: 01-04-2023 Verification routine [facility] Start: 01-04-2023 Admission procedure [facility] Start: 01-04-2023 End: 01-04-2023 [facility] Start: 01-04-2023 End: 01-04-2023 Blood culture [facility] Start: 01-04-2023 Patient referral to dietitian [facility] Start: 01-01-2023 ANNUAL PCP TEAM MANAGER MATERIALS MANAGEMENT MARLENE DISEASE VISIT ANNUAL PCP TEAM CHRONIC DISEASE VISIT [facility] Start: 01-01-2023 BP CONTROLLED (<130/80) BP CONTROLLE D (<130/80) [facility] Start: 01-01-2023 Hepatitis B surface antibody level LDL CHOLESTEROL [facility] Start: 01-01-2023 SERUM CREATININE SERUM CREATININE [facility] Start: 12-14-2022 ANNUAL PCP TEAM MANAGER MATERIALS MANAGEMENT MARLENE DISEASE VISIT ANNUAL PCP TEAM CHRONIC DISEASE VISIT [facility] Start: 12-08-2022 ANNUAL PCP TEAM MANAGER MATERIALS MANAGEMENT MARLENE DISEASE VISIT ANNUAL PCP TEAM CHRONIC DISEASE VISIT [facility] Start: 12-08-2022 BP CONTROLLED (<130/80) BP CONTROLLE D (<130/80) [facility] Start: 09-06-2022 ANNUAL PCP TEAM MANAGER MATERIALS MANAGEMENT MARLENE DISEASE VISIT ANNUAL PCP TEAM CHRONIC DISEASE VISIT [facility] Start: 09-02-2022 Hemoglobin A1c/Hemoglobin.total in Blood HBA1C [facility] Start: 08-30-2022 SERUM CREATININE SERUM CREATININE [facility] Start: 08-09-2022 End: 10-09-2022 CBC W Auto Differential panel - Blood CBC + DIFF Lab Routine Type 2 diabetes mellitus with diabetic neuropathy, with long-term current use of insulin (HCC) Expected: 08/09/2022, Expires: 10/09/2022 [facility] Work Phone: Comment on above: Expected: 08/09/2022 , Expires: 10/09/2022 Start: 08-09-2022 End: 10-09-2022 Comprehensive metabolic 2000 panel - Serum or Plasma COMP METABOLIC PANEL Lab Routine Type 2 diabetes mellitus with diabetic neuropathy, with long-term current use of insulin (HCC) Expected: 08/09/2022, Expires: 10/09/2022 [facility] Work Phone: Comment on above: Expected: 08/09/2022 , Expires: 10/09/2022 Start: 08-09-2022 End: 10-09-2022 Hemoglobin A1c in Blood HGB A1C Lab Routine Type 2 diabetes mellitus with diabetic neuropathy, with long-term current use of insulin (HCC) Expected: 08/09/2022, Expires: 10/09/2022 [facility] Work Phone: Comment on above: Expected: 08/09/2022 , Expires: 10/09/2022 Start: 08-06-2022 COVID-19 VACCINE (6 - Pfizer series) COVID-19 VACCINE (6 - Pfizer series) [facility] Start: 07-15-2022 ADVANCE DIRECTIVE DISCUSSION ADVANCE DIRECTIVE DISCUSSION [facility] Start: 07-15-2022 DEPRESSION ASSESSMENT DEPRESSION ASS ESSMENT [facility] Start: 07-11-2022 Patient discharge [facility] Work Phone: Start: 07-11-2022 Referral to service [facility] Work Phone: Start: 07-10-2022 [facility] Work Phone: Start: 07-10-2022 Following clinical p athway protocol [facility] Work Phone: Start: 07-10-2022 Assessment of risk o f venous thromboembolism [facility] Work Phone: Start: 07-10-2022 Cardiac monitoring [facility] Work Phone: Start: 07-10-2022 Care regimes management [facility] Work Phone: Start: 07-10-2022 Catheterization of vein [facility] Work Phone: Start: 07-10-2022 Continuous pulse oximetry [facility] Work Phone: Start: 07-10-2022 Elevation of head of bed [facility] Work Phone: Start: 07-10-2022 Exercises [facility] Work Phone: Start: 07-10-2022 Fall prevention [facility] Work Phone: Start: 07-10-[address] anned interventions [facility] Work Phone: Start: 07-10-2022 Incentive spirometry [facility] Work Phone: Start: 07-10-2022 Insertion of cathete r into peripheral vein [facility] Work Phone: Start: 07-10-2022 Introduction of urin barrington catheter [facility] Work Phone: Start: 07-10-2022 Measuring intake and output [facility] Work Phone: Start: 07-10-2022 Notification of physician [facility] Work Phone: Start: 07-10-2022 Oxygen therapy [facility] Work Phone: Start: 07-10-2022 Providing care accor ding to standard [facility] Work Phone: Start: 07-10-2022 Provision of activit y privileges [facility] Work Phone: Start: 07-10-2022 Referral to finance business partner [facility] Work Phone: Start: 07-10-2022 Referral to occupati onal therapist [facility] Work Phone: Start: 07-10-2022 Referral to service [facility] Work Phone: Start: 07-10-2022 Tobacco use cessatio n education [facility] Work Phone: Start: 07-10-2022 [place] [facility] Work Phone: Start: 07-10-2022 Patient referral to dietitian [facility] Work Phone: Start: 07-09-2022 Admission procedure [facility] Work Phone: Start: 03-15-2022 HEMOGLOBIN/HEMATOCRIT HEMOGLOBIN/HEM ATOCRIT [facility] Start: 03-15-2022 Influenza vaccination INFLUENZA (#1) [facility] Start: 03-07-2022 End: 05-07-2022 Comprehensive metabolic 2000 panel - Serum or Plasma [facility] Work Phone: Comment on above: Expected: 03/07/2022 , Expires: 05/07/2022 Start: 03-02-2022 [facility] Work Phone: Start: 02-27-2022 Hemoglobin A1c/Hemoglobin.total in Blood HBA1C [facility] Start: 02-20-2022 Hepatitis C antibody , confirmatory test DILATED RETINAL EXAM [facility] Start: 01-30-2022 End: 04-01-2022 ALBUMIN/CREAT RATIO RND UR ALBUMIN/CREAT RATIO RND UR Lab Routine Type 2 diabetes mellitus with stage 3 chronic kidney disease, with long-term current use of insulin (HCC) Expected: 01/30/2022, Expires: 04/01/2022 [facility] Work Phone: Comment on above: Expected: 01/30/2022 , Expires: 04/01/2022 Start: 01-30-2022 End: 04-01-2022 Hemoglobin A1c in Blood HGB A1C Lab Routine Type 2 diabetes mellitus with stage 3 chronic kidney disease, with long-term current use of insulin (HCC) Expected: 01/30/2022, Expires: 04/01/2022 [facility] Work Phone: Comment on above: Expected: 01/30/2022 , Expires: 04/01/2022 Start: 01-30-2022 End: 04-01-2022 SCHEDULE LAB TESTING SCHEDULE LAB TESTING Lab Routine Expected: 01/30/2022, Expires: 04/01/2022 [facility] Work Phone: Comment on above: Expected: 01/30/2022 , Expires: 04/01/2022 Start: 01-05-2022 End: 03-07-2022 Magnesium [Mass/volume] in Serum or Plasma MAGNESIUM BLD Lab Routine Altered mental status, unspecified altered mental status type Expected: 01/05/2022, Expires: 03/07/2022 [facility] Work Phone: Comment on above: Expected: 01/05/2022 , Expires: 03/07/2022 Start: 01-05-2022 End: 03-07-2022 Methylmalonate [Moles/volume] in Serum or Plasma METHYLMALONIC ACID Lab Routine Altered mental status, unspecified altered mental status type Expected: 01/05/2022, Expires: 03/07/2022 [facility] Work Phone: Comment on above: Expected: 01/05/2022 , Expires: 03/07/2022 Start: 01-01-2022 End: 03-03-2022 25-hydroxyvitamin D3 [Mass/volume] in Serum or Plasma [facility] Work Phone: Comment on above: Expected: 01/01/2022 , Expires: 03/03/2022 Start: 01-01-2022 End: 03-03-2022 Lipid 1996 panel - Serum or Plasma [facility] Work Phone: Comment on above: Expected: 01/01/2022 , Expires: 03/03/2022 Start: 12-30-2021 Blood chemistry [facility] Work Phone: Start: 12-29-2021 Patient discharge [facility] Work Phone: Start: 12-28-2021 Admission procedure [facility] Work Phone: Start: 12-27-2021 End: 12-28-2021 [facility] Work Phone: Start: 12-27-2021 Oxygen therapy [facility] Work Phone: Start: 12-27-2021 Incentive spirometry [facility] Work Phone: Start: 12-27-2021 Admission procedure [facility] Work Phone: Start: 12-27-2021 Assessment of risk o f venous thromboembolism [facility] Work Phone: Start: 12-27-2021 Following clinical p athway protocol [facility] Work Phone: Start: 12-27-2021 Insertion of cathete r into peripheral vein [facility] Work Phone: Start: 12-27-2021 Measuring intake and output [facility] Work Phone: Start: 12-27-2021 Providing care accor ding to standard [facility] Work Phone: Start: 12-27-2021 End: 12-27-2021 Referral to service [facility] Work Phone: Start: 12-06-2021 Bacteria identified in Blood by Culture Blood Culture [facility] Work Phone: Start: 11-23-2021 3 comp foot exam completed DIABETIC FOOT EXAM [facility] Start: 11-16-2021 Hepatitis B screening URINE ALBUMIN:CREATININE RATIO [facility] Start: 11-16-2021 Hepatitis B surface antibody level LDL CHOLESTEROL [facility] Start: 10-28-2021 Adult depression scr eening assessment DEPRESSION SCREENING [facility] Start: 09-15-2021 COVID-19 VACCINE (4 - Booster for Pfizer series) COVID-19 VACCINE (4 - Booster for Pfizer series) [facility] Start: 07-15-2021 ADVANCE DIRECTIVE DISCUSSION ADVANCE DIRECTIVE DISCUSSION [facility] Start: 07-15-2021 DEPRESSION ASSESSMENT DEPRESSION ASS ESSMENT [facility] Start: 03-12-2021 Colonoscopy COLONOSCOPY [facility] Start: 03-12-2021 COLORECTAL CANCER SCREENING COLORECTAL CANCER SCREENING [facility] Start: 12-25-2020 Urine microalbumin profile DTA P,TDAP,TD (3 - Td or Tdap) [facility] Start: 10-12-1992 COLOGUARD (FIT-DNA) COLOGUARD (FIT-D NA) [facility] Start: 10-12-[address] [facility] Start: 10-12-1992 FECAL OCCULT BLOOD FECAL OCCULT BLOO D [facility] Start: 10-12-1992 SIGMOIDOSCOPY SIGMOIDOSCOPY [facility] Start: 10-12-1965 BP CONTROLLED (<130/80) BP CONTROLLE D (<130/80) [facility] Acid fast bacilli culture [facility] Alanine aminotransfe rase [Enzymatic activity/volume] in Serum or Plasma [facility] Aspartate aminotrans ferase [Enzymatic activity/volume] in Serum or Plasma [facility] Bacteria identified in Blood by Culture Blood Culture [facility] Bacteria identified in Urine by Culture Urine Culture [facility] Creatine kinase [Enz ymatic activity/volume] in Serum or Plasma [facility] End: 01-05-2023 EPIL EEG ROUTINE EPIL EEG ROUTINE NEUROLOGY Routine Altered mental status, unspecified altered mental status type 1 Occurrences starting 01/05/2022 until 01/05/2023 [facility] Work Phone: Comment on above: 1 Occurrences starti ng 01/05/2022 until 01/05/2023 Fungus identified in Unspecified specimen by Culture [facility] Fungus identified in Unspecified specimen by Fungus stain [facility] Lipid 1996 panel - S chavez or Plasma [facility] Magnesium [Mass/volu me] in Serum or Plasma [facility] Magnesium [Mass/volu me] in Serum or Plasma [facility] Mycobacterium sp identified in Unspecified specimen by Organism specific culture [facility] Mycobacterium sp identified in Unspecified specimen by Organism specific culture [facility] Patient Education [facility] Work Phone: Patient referral [facility] Work Phone: PT PLAN OF CARE CERTIFICATION PT PLAN OF CARE CERTIFICATION Procedures Routine Abnormality of gait due to impairment of balance Ordered: 01/12/2022 [facility] Comment on above: Ordered: 01/12/2022 PT PLAN OF CARE CERTIFICATION PT PLAN OF CARE CERTIFICATION Procedures Routine Abnormality of gait due to impairment of balance Ordered: 03/09/2022 [facility] Comment on above: Ordered: 03/09/2022 SURGICAL PATHOLOGY [facility] Work Phone: Comment on above: Release Upon Orderin g for 1 Occurrences starting 10/10/2021, 1 completed Urine culture [facility] Urine culture [facility] Immunizations Immunization Date Immunization Notes Care Provider Yasir quintero 04-06-2022 COVID-19 booster vaccine, age 12+ yr, bivalent (PFIZER-BIONTECH) Roselia Podlogar PERFORATOR TYPIST.CASE MANAGEMENT SOCIAL WORKER Work Phone: [facility] 04-06-2022 Influenza, high dose seasonal Dr. Luis Caldera MD Work Phone: [facility] 04-06-2022 influenza, high dose seasonal, preservative-free Dr. Maggy Roberts Work Phone: [facility] 04-06-2022 influenza, high-dose , quadrivalent vaccine (FLUZONE HIGH DOSE QUADRIVALENT) Roselia Podlogar PERFORATOR TYPIST.CASE MANAGEMENT SOCIAL WORKER Work Phone: [facility] 03-28-2022 influenza, injectabl e, quadrivalent, preservative free Dr. Maggy Roberts Work Phone: [facility] 03-28-2022 influenza, seasonal, injectable Dr. Maggy Roberts Work Phone: [facility] 06-14-2021 Influenza, high dose seasonal Dr. Luis Caldera MD Work Phone: [facility] 06-14-2021 influenza, high dose seasonal, preservative-free Dr. Maggy Roberts Work Phone: [facility] 06-14-2021 influenza, high-dose , quadrivalent vaccine (FLUZONE HIGH DOSE QUADRIVALENT) Abdulaziz Caldera MD Work Phone: [facility] Work Phone: 05-18-2021 Covid (Pfizer) Dr. Maggy Roberts Work Phone: [facility] 02-24-2021 zoster vaccine recombinant Abdulaziz Caldera MD Work Phone: [facility] 12-13-2020 Covid (Pfizer) Dr. Ramón Caldera Work Phone: [facility] 09-30-2020 COVID-19 vaccine, ag e 12+ yr (PFIZER-BIONTECH - PURPLE TOP) Abdulaziz Caldera MD Work Phone: [facility] 09-09-2020 COVID-19 vaccine, ag e 12+ yr (PFIZER-BIONTECH - PURPLE TOP) Abdulaziz Caldera MD Work Phone: [facility] 04-16-2020 Influenza, high dose seasonal Dr. Luis Caldera MD Work Phone: [facility] 04-16-2020 influenza, high dose seasonal, preservative-free Dr. Maggy Roberts Work Phone: [facility] 04-16-2020 influenza, high-dose , quadrivalent vaccine (FLUZONE HIGH DOSE QUADRIVALENT) Abdulaziz Caldera MD Work Phone: [facility] 03-14-2020 zoster vaccine recombinant Abdulaziz Caldera MD Work Phone: [facility] Work Phone: 04-02-2019 Influenza, high dose seasonal Dr. Luis Caldera MD Work Phone: [facility] 04-02-2019 influenza, high dose seasonal, preservative-free Abdulaziz Caldera MD Work Phone: [facility] Work Phone: 05-08-2018 Influenza virus vaccine [facility] 04-15-2018 Influenza, high dose seasonal Dr. Luis Caldera MD Work Phone: [facility] 04-15-2018 influenza, high dose seasonal, preservative-free Abdulaziz Caldera MD Work Phone: [facility] 06-13-2017 Influenza, high dose seasonal Dr. Luis Caldera MD Work Phone: [facility] 06-13-2017 influenza, high dose seasonal, preservative-free Abdulaziz Caldera MD Work Phone: [facility] 06-20-2016 influenza, high dose seasonal, preservative-free Abdulaziz Caldera MD Work Phone: [facility] 11-24-2015 pneumococcal polysaccharide vaccine, 23 valent Abdulaziz Caldera MD Work Phone: [facility] 05-16-2015 Influenza, high dose seasonal Dr. Luis Caldera MD Work Phone: [facility] 05-16-2015 influenza, high dose seasonal, preservative-free Abdulaziz Caldera MD Work Phone: [facility] 10-27-2014 pneumococcal conjuga te vaccine, 13 valent Abdulaziz Caldera MD Work Phone: [facility] 10-27-2014 zoster vaccine, live Socrates jurgen Caldera MD Work Phone: [facility] 04-14-2013 Influenza virus vaccine [facility] 06-11-2011 influenza virus vaccine, unspecified formulation Abdulaziz Caldera MD Work Phone: [facility] 12-25-2010 tetanus toxoid, redu veronika diphtheria toxoid, and acellular pertussis vaccine, adsorbed Abdulaziz Caldera MD Work Phone: [facility] 04-25-2009 pneumococcal polysaccharide vaccine, 23 valent Abdulaziz Caldera MD Work Phone: [facility] 03-21-2000 diphtheria and tetan us toxoids, adsorbed for pediatric use Abdulaziz Caldera MD Work Phone: [facility] Work Phone: 02-11-1961 poliovirus vaccine, inactivated Abdulaziz Caldera MD Work Phone: [facility] Work Phone: 03-25-1959 poliovirus vaccine, inactivated Abdulaziz Caldera MD Work Phone: [facility] Work Phone: 10-16-1956 poliovirus vaccine, inactivated Abdulaziz Caldera MD Work Phone: [facility] Work Phone: 01-12-1956 poliovirus vaccine, inactivated Abdulaziz Caldera MD Work Phone: [facility] Work Phone: 12-03-1955 poliovirus vaccine, inactivated Abdulaziz Caldera MD Work Phone: [facility] Work Phone: Payers Date Payer Category Payer Self-pay [id number] 2021 Medicare [id number] 2021 Unknown [id number] 2012 Unknown HOSPITAL/MEDICAL GENERIC MEDICAL GENERIC [id number] 2012-Present [phone] [place] [address], [place] [address] Indemnity [id number] 2012 Unknown HOSPITAL/MEDICAL GENERIC MEDICAL GENERIC [id number] 2012-Present [phone] [place] [address], [place] [address] Indemnity [id number] 2012 Medicare MEDICARE MEDICAR E A AND B [id number] 2012-Present [phone] [place] [address] Medicare [id number] [id number] 2012 Medicare MEDICARE MEDICAR E A AND B [id number] 2012-Present [phone] [place] [address] Medicare [id number] .962653.[facility] 1945 Unknown [id number] 2.16.840.1.977741.3.579.2.627 Unknown [id number] .16.840.1.861199.3.579.2.462 Unknown [id number] 2.16.840.1.920725.3.579.2.462 Unknown [id number] 2..840.1.370750.3.579.2.462 Unknown [id number] ..840.1.600656.3.579.2.462 Unknown [id number] 2..840.1.416213.3.579.2.462 Unknown [id number] ..840.1.556043.3.579.2.462 Unknown [id number] 2.840.1.240721.3.579.2.462 Unknown [id number] .840.1.552089.3.579.2.462 Unknown [id number] .840.1.376921.3.579.2.462 Unknown [id number] .840.1.606471.3.579.2.462 Unknown [id number] 2.840.1.537893.3.579.2.462 Unknown [id number] .840.1.699716.3.579.2.462 Unknown [id number] .840.1.320724.3.579.2.462 Unknown [id number] .840.1.221945.3.579.2.462 Unknown [id number] .840.1.084520.3.579.2.462 Unknown [id number] 2.840.1.813036.3.579.2.462 Unknown [id number] 2..840.1.493210.3.579.2.462 Unknown [id number] 2.16.840.1.290827.3.579.2.462 Unknown [id number] 2.16.840.1.560689.3.579.2.462 Unknown [id number] 2.16.840.1.513732.3.579.2.462 Unknown [id number] 2.16.840.1.027440.3.579.2.462 Unknown [id number] 2.16840.1.376619.3.579.2.462 Unknown [id number] 2.16.840.1.443092.3.579.2.462 Unknown [id number] 2.840.1.369223.3.579.2.462 Unknown [id number] 2.840.1.469873.3.579.2.462 Unknown [id number] 2.840.1.155720.3.579.2.462 Unknown [id number] 2.840.1.589213.3.579.2.462 Unknown [id number] 2.840.1.064736.3.579.2.462 Unknown [id number] 2.840.1.348497.3.579.2.462 Unknown [id number] 2.16840.1.473915.3.579.2.462 Unknown [id number] 2.840.1.056256.3.579.2.462 Unknown [id number] 2.840.1.227454.3.579.2.462 Unknown [id number] 2.16.840.1.643220.3.579.2.462 Unknown [id number] 2.16840.1.104122.3.579.2.462 Unknown [id number] 2.16.840.1.774844.3.579.2.462 Unknown [id number] 2.16840.1.842884.3.579.2.462 Unknown [id number] 2.16.840.1.046397.3.579.2.462 Unknown [id number] 2.16.840.1.235730.3.579.2.462 Unknown [id number] 2.16.840.1.356027.3.579.2.462 Unknown [id number] 2.16.840.1.881573.3.579.2.462 Unknown [id number] 2.16.840.1.523615.3.579.2.462 Unknown [id number] 2.16.840.1.619448.3.579.2.462 Unknown [id number] 2.16.840.1.956938.3.579.2.462 Unknown [id number] 2.16.840.1.878482.3.579.2.462 Unknown [id number] 2.16840.1.137585.3.579.2.462 Unknown [id number] 2.16840.1.794556.3.579.2.462 Unknown [id number] 2.16.840.1.557231.3.579.2.462 Unknown [id number] 2.16840.1.917345.3.579.2.462 Unknown [id number] 2.16840.1.351524.3.579.2.462 Unknown [id number] 2.16840.1.139857.3.579.2.462 Unknown [id number] 2.16840.1.566362.3.579.2.462 Unknown [id number] 2.840.1.101227.3.579.2.462 Social History Date Type Detail Facility Start: 11-23-2020 End: 02-27-2025 Tobacco smoking status NHIS Never smoked tobacco [facility] Start: 09-06-2021 End: 12-03-2022 Alcohol intake Current non-drinker of alcohol (finding) [facility] Start: 1945 Sex Assigned At Not on file [facility] Start: 08-07-2021 End: 04-17-2022 Exposure to SARS-CoV-2 (event) Not sure [facility] Start: 12-06-2021 End: 05-30-2023 Tobacco smoking status NHIS Unknown if ever smoked [facility] Start: 01-10-2019 Spouse/ Signif icant Other [facility] Start: 1945 Sex Assigned At Male [facility] Work Phone: Tobacco smoking status No Smokin g Status Entered [facility] Start: 01-02-2022 End: 01-12-2022 Exposure to SARS-CoV-2 (event) Unable to assess [facility] Work Phone: Start: 11-23-2020 End: 04-06-2022 Tobacco use and exposure Smokeless tobacco non-user [facility] Work Phone: Start: 09-16-2013 Rare [facility] Start: 09-16-2013 None [facility] Start: 09-16-2013 Non-smoker [facility] Start: 11-19-2022 End: 12-03-2022 History of Social function [facility] Work Phone: Start: 11-19-2022 End: 12-03-2022 Tobacco use panel [facility] Work Phone: Adult Depression Screening Assessment 2 [facility] Work Phone: Start: 10-15-2024 End: 10-22-2024 Sex Male (finding) [facility] Medical Equipment Procedure Code Equipment [...] ABS FDA Start: 03-28-2018 FDA Start: 03-28-2018 ([id number]) ()[id number] FDA Start: 02-04-2023 ([id number]) ()[id number] FDA Start: 02-04-2023 ([id number]) ()[id number] FDA Start: 02-04-2023 FDA Start: 03-28-2018 [...] Assessment Result Facility 02-11-2025 Functional status Bedrest [facility] Work Phone: 02-13-2023 Functional status Bedrest [facility] Work Phone: 02-05-2023 Functional status Chair [facility] Work Phone: 02-04-2023 Functional status Bedrest [facility] Work Phone: 01-26-2023 Functional status Chair mode [facility] Work Phone: 01-26-2023 Functional status With Assist of 2;Bedres t [facility] Work Phone: 01-25-2023 Functional status None [facility] Work Phone: 01-08-2023 Functional status Chair [facility] Work Phone: 07-11-2022 Functional status Ambulates [facility] Work Phone: 12-29-2021 Functional status Chair [facility] Work Phone: Mental Status Date Assessment Result Facility 02-27-2025 Cognitive function Voice/Name [facility] Work Phone: 02-11-2025 Cognitive function Voice/Name;To uch/Shaking;Light Pain;Deep Pain [facility] Work Phone: 02-02-2025 Cognitive function Level Of Cons ciousness Lethargic [facility] Work Phone: 02-02-2025 Cognitive function Voice/Name;Touch/Shaki ng [facility] Work Phone: 06-03-2023 Cognitive function Voice/Name [facility] Work Phone: 02-13-2023 Cognitive function Voice/Name [facility] Work Phone: 02-11-2023 Cognitive function Awake;Drowsy [facility] Work Phone: 02-10-2023 Cognitive function Awake;Appropr iate;Follows Commands;Drowsy [facility] Work Phone: 02-05-2023 Cognitive function Voice/Name [facility] Work Phone: 02-04-2023 Cognitive function Appropriate;Cooperativ e [facility] Work Phone: 01-26-2023 Cognitive function Voice/Name [facility] Work Phone: 01-21-2023 Cognitive function Level Of Cons ciousness Drowsy;Lethargic [facility] Work Phone: 01-08-2023 Cognitive function Voice/Name [facility] Work Phone: 01-04-2023 Cognitive function Voice/Name [facility] Work Phone: 07-11-2022 Cognitive function Voice/Name [facility] Work Phone: 07-10-2022 Cognitive function Appropriate;Cooperativ e [facility] Work Phone: 03-02-2022 Cognitive function Voice/Name [facility] Work Phone: 12-29-2021 Cognitive function Voice/Name [facility] Work Phone: 12-06-2021 Cognitive function Level Of Cons ciousness Awake;Alert;Appropriate [facility] Work Phone: Clinical Notes 10-25-2014 to 03-22-2025 Note Date & Type Note Facility 03-22-2025 Procedure note [facility] 02-27-2025 Discharge summary Note Date/Time February 27, 2025 9:28pm [facility] Medical Records Department [address] [place] [address] Emergency Department Summary 02/27/25 MR#: [id number] Acct: [id number] Name: RICHARD ROY Rep #:[id number] : 1945 79 From: Bennett Troncoso DO PCP: Kuldip Cosby TECHNOLOGY SPECIALIST-C Status:REG ER Location: ED HPI History [...] send him here for further evaluation management [facility] Medical History MRSA (methicillin resistant staph aureus) [...] bisacodyl 10 mg rectal suppository 10 mg FL DAILY PRN constipation 05/30/23 Unknown History acetaminophen [...] thoracic aortic aneurysm repair Social History housing: care home current occupational status: retired Smoking Status: Never [...] 71.2 H Lymph % (Auto) 14.2 L Cochran % (Auto) 6.1 Eos % (Auto) 7.1 [...] Clarity Clear Urine pH 6.0 Ur Specific [place] 1.010 Urine Protein 15 H Urine Glucose [...] scan would have superior sensitivity. Reading Location: [facility] Brain CT 02/27/25 20:00 IMPRESSION: No acute abnormality. Maxillary sinus mucosal thickening [facility] Chest X-Ray 02/27/25 20:20 IMPRESSION: No evidence of acute cardiopulmonary disease. Reading Location: [facility] Discharge Plan Triage Chief Complaint: Alt [...] PRN (Reason: Insomnia) Patient Comments: PRN PER GROUP HOME MAR. memantine 10 mg Tablet 10 mg PO BID Qty: 0 0RF acetaminophen 325 mg tablet 650 mg PO .q12hrs Patient Comments: PRN PER GROUP HOME MAR bisacodyl 10 mg suppository 10 mg FL DAILY PRN (Reason: constipation) cholecalciferol (vitamin D3) [...] Care Provider: Kuldip Cosby Referrals: Kuldip Cosby, TECHNOLOGY SPECIALIST-C [Primary Care Provider] - Activity Restrictions/Additional Instructions: Blood work did not show any acute findings here today. X-ray did not show any evidence of osteomyelitis of his foot. His head CT did not show any acute findings either. Return with worsening symptoms or any concerns. Print Language: Macanese Disposition Disposition: Home, Self Care What to do if you have Problems For any increased pain, shortness of breath, bleeding, nausea or vomiting, chestpain, or any unexpected problems, contact your Primary Care Provider. Call [facility] ([phone]) or report to the closest Emergency Room. Call 911 if necessary. 02/27/252127 <Electronically signed by Bennett Tronocso DO> Cosigner Signature (if applicable): CC: Kuldip Cosby ~ Signed [facility] Work Phone: 1(929) 324-283608-16-2025 Radiology Diagnostic study [facility]08-16-2025 Radiology Diagnostic study [facility]08-16-2025 Radiology Diagnostic study [facility] 02-11-2025 Progress note Author Meghana Cole [facility] Note Date/Time February 11, 2025 3:45 pm [facility] Medical Records Department [address] [place] [address] Progress Note - Surgery 02/11/25 0839 MR#: [id number] Acct: [id number] Name: RICHARD ROY Rep #:[id number] : 1945 79 From: Meghana LOZA PCP: Kuldip Cosby Status:ADM IN Location: [place] [address] Subjective Subjective He is drowsy. He reports [...] 02/11/25 06:54: Estim Creat Clear Calc TECHNOLOGY SPECIALIST Micro: Microbiology 02/05/25 Unknown Tissue - [...] from discharge. Charges/Coding Visit Charges Inpatient E&M: 58076 Subs Hosp L1 02/11/25 0845 <Electronically signed by Meghana LOZA> Cosigner Signature (if applicable): 02/11/25 8967 <Electronically signed by Aneesh Ac MD> CC: ~ Signed [facility] Work Phone: 1(751) 454-684907-31-2025 Progress note Author Kee Mejia [facility] Note Date/Time February 11, 2025 3:15 pm [facility] Medical Records Department [address] [place] [address] Progress Note 02/11/25 1339 MR#: [id number] Acct: [id number] Name: RICHARD ROY Rep #:[id number] : 1945 79 From: Kee Mejia DPM PCP: Kuldip Cosby TECHNOLOGY SPECIALIST-C Status:ADM IN Location: [place] [id number] Subjective Subjective Patient was seen today [...] 76.3 H, Lymph % (Auto) 9.9 L, Cochran % (Auto) 7.1, Eos % (Auto) 4.1, [...] Cosigner Signature (if applicable): CC: ~ Signed [facility] Work Phone: 1(530) 728-763907-31-2025 Discharge summary Author Hugo Cervantes [facility] Note Date/Time February 11, 2025 2:52 pm [facility] Medical Records Department [address] [place] [address] Discharge Summary 02/11/25 1444 MR#: [id number] Acct: [id number] Name: RICHARD ROY Rep #:[id number] : 1945 79 From: Hugo hollis MD PCP: Kuldip Cosby Status:ADM IN Location: [facility] [id number] Providers Date of Admission: 02/02/25 Primary Care Physician: AAUYSH Ross Consultations 02/03/25 01:20 Consult: Onc/Wound/building trades instructor Routine Comment: Consult: Podiatry Routine Consulting Provider: [...] bisacodyl 10 mg rectal suppository 10 mg FL DAILY PRN constipation 05/30/23 loperamide 2 mg [...] behavioral disturbance history who presents to the [facility] ED on 02/02/2025 with history of [...] to have a woundVAC placed at the care home. His hospitalization was complicated by an ANTHONY [...] risk benefits of going home to the care home and would like to go when able. [...] % (Auto) Cancelled, Lymph % (Auto) Cancelled, Cochran % (Auto) Cancelled, Eos % (Auto) Cancelled, [...] Drop Cells Cancelled, Ovalocytes Cancelled, Stomatocytes Cancelled, Street-[place] Bodies Cancelled, [place] Cells Cancelled, Bite Cells Cancelled, Crenated Cell [...] Std Deviation 44.1 H, RDW Coeff of Nathainel 13.7, Plt Count 308, MPV 9.1, Immature Gran % (Auto) 2.100 H, Neut % (Auto) 76.3 H, Lymph % (Auto) 9.9 L, Cochran % (Auto) 7.1, Eos % (Auto) 4.1, [...] mg PO QHS Patient Comments: PRN PER [facility] HOME MAR. memantine 10 mg Tablet 10 mg PO BID Qty: 0 0RF acetaminophen 325 mg tablet 650 mg PO .q12hrs Patient Comments: PRN PER GROUP HOME MAR bisacodyl 10 mg suppository 10 mg FL DAILY PRN (Reason: constipation) loperamide [Anti-Diarrheal (loperamide)] [...] in before D/C Order can be placed): [facility] Facility Charges/Coding Visit Charges Inpatient E&M: 47897 Disch Hosp >30min 02/11/25 1452 <Electronically signed by Hugo Cervantes MD> Cosigner Signature (if applicable): CC: Dr. Hugo Cervantes MD; Kuldip Cosby~ Signed [facility] Work Phone: 1(991) 885-513407-31-2025 Discharge summary Author Hugo Cervantes [facility] Note Date/Time February 11, 2025 2:23 pm [facility] Medical Records Department [address] [place] [address] Transfer to [facility] MR#: [id number] Acct: [id number] Name: RICHARD ROY Rep #:[id number] : 1945 79 From: Hugo hollis MD PCP: Kuldip Cosby Status:ADM IN Certification of patient admission REQUIRED AT TIME OF ADMISSION. I CERTIFY THAT POST-HOSPITAL ECF SERVICES ARE REQUIRED TO BE GIVEN ON AN IN-PATIENT BASIS BECAUSE OF THE ABOVE NAMED PATIENT'S NEED FOR GROUP HOME CARE ON A CONTINUING BASIS FOR THE [...] noadded salt; consistency/texture adjustments as indicated per DETECTIVE. Continue Luis with breakfast and dinner to [...] mg PO QHS Patient Comments: PRN PER GROUP HOME MAR. memantine 10 mg Tablet 10 mg PO BID Qty: 0 0RF acetaminophen 325 mg tablet 650 mg PO .q12hrs Patient Comments: PRN PER GROUP HOME MAR bisacodyl 10 mg suppository 10 mg FL DAILY PRN (Reason: constipation) loperamide [Anti-Diarrheal (loperamide)] [...] in before D/C Order can be placed): [facility] 02/11/25 0123 <Electronically signed by Hugo Cervantes MD> Cosigner Signature (if applicable): CC: DPM Dr. Kee Mejia; Dr. Karen Aly MD; Dr. Aneesh Ac MD; Dr. Smith Leija MD; Kuldip Cosby ~ [facility] Work Phone: 1(530) 195-243907-31-2025 [facility]07-31-2025 Progress note Author [facility] Note Date/Time February 11, 2025 10:2 8am [facility] Medical Records Department [address] [place] [address] Progress Note - Infect Disease 02/11/25 1027 MR#: [id number] Acct: [id number] Name: RICHARD ROY Rep #:[id number] : 1945 79 From: Smith mcdowell MD PCP: Kuldip Cosby Status:ADM IN Location: [place] [address] Physical Exam Narrative Angioplasty yesterday, feeling ok, [...] Cosigner Signature (if applicable): CC: ~ Signed [facility] Work Phone: 1(249) 427-597707-31-2025 Progress note Author Hugo Cervantes [facility] Note Date/Time February 11, 2025 9:30 am [facility] Medical Records Department [address] [place] [address] Progress Note - Hospitalist 02/11/25921 MR#: [id number] Acct: [id number] Name: RICHARD ROY Rep #:[id number] : 1945 79 From: Hugo hollis MD PCP: Kuldip Cosby TECHNOLOGY SPECIALIST-C Status:ADM IN Location: [place] [address] Subjective Subjective No issues overnight, had his [...] 76.3 H, Lymph % (Auto) 9.9 L, Cochran % (Auto) 7.1, Eos % (Auto) 4.1, [...] DVT: Eliquis Charges/Coding Visit Charges Inpatient E&M: 37087 Subs Hosp L2 02/11/25 0930 <Electronically signed by Hugo Cervantes MD> Cosigner Signature (if applicable): CC: ~ Signed [facility] Work Phone: 1(760) 552-786407-30-2025 Procedure [facility] 02-10-2025 Consult note Author Crys Carvajal [facility] Note Date/Time February 10, 2025 12:0 4pm [facility] Medical Records Department [address] [place] [address] Pharmacokinetic/Renal -Consult 02/10/25 1203 MR#: [id number] Acct: [id number] Name: RICHARD ROY Rep #:[id number] : 1945 79 From: Crys Carvajal PCP: Kuldip Cosby Status:ADM IN Y Location: [place] [address] Consult Antibiotic Management Pharmacy has been consulted [...] Signature (if applicable): Date CC: ~ Signed [facility] Work Phone: [phone]) 707-446907-30-2025 Progress note Author Hugo Cervantes [facility] Note Date/Time February 10, 2025 9:46 am [facility] Medical Records Department [address] [place] [address] Progress Note - Hospitalist 02/10/25 0942 MR#: [id number] Acct: [id number] Name: RICHARD ROY Rep #:[id number] : 1945 79 From: Hugo hollis MD PCP: Kuldip Cosby TECHNOLOGY SPECIALIST-C Status:ADM IN Location: [place] [address] Subjective Subjective No issues overnight, pending angiogram [...] 73.1 H, Lymph % (Auto) 11.0 L, Cochran % (Auto) 8.5, Eos % (Auto) 4.7, [...] DVT: Eliquis Charges/Coding Visit Charges Inpatient E&M: 25079 Subs Hosp L2 02/10/25 0902 <Electronically signed by Hugo Cervantes MD> Cosigner Signature (if applicable): CC: ~ Signed [facility] Work Phone: [phone] Progress note Author Aneesh Ac [facility] Note Date/Time February 09, 2025 6:11 pm [facility] Medical Records Department [address] [place] [address] Progress Note - Surgery 02/09/25 1808 MR#: [id number] Acct: [id number] Name: RICHARD ROY Rep #:[id number] : 1945 79 From: Aneesh Ac MD PCP: Kuldip Cosby TECHNOLOGY SPECIALISTJay Jay Status:ADM IN Location: [place] [address] Subjective Subjective Resting comfortably, eating dinner. No [...] 75.5 H, Lymph % (Auto) 10.7 L, Cochran % (Auto) 7.1, Eos % (Auto) 4.5, [...] eliquis tonight/AM Charges/Coding Visit Charges Inpatient E&M: 82368 Subs Hosp L2 02/09/25 181 <Electronically signed by Aneesh Ac MD> Cosigner Signature (if applicable): CC: ~ Signed [facility] Work Phone: [phone]) 312-643607-29-2025 Progress note Author Smith Robertoninger [facility] Note Date/Time February 09, 2025 10:1 7am [facility] Medical Records Department [address] [place] [address] Progress Note - Infect Disease 02/09/25 1016 MR#: [id number] Acct: [id number] Name: RICHARD ROY Rep #:[id number] : 1945 79 From: Smith mcdowell MD PCP: Kuldip Cosby TECHNOLOGY SPECIALIST-C Status:ADM IN Location: [place] [address] Physical Exam Narrative Feeling fine, no pain [...] Cosigner Signature (if applicable): CC: ~ Signed [facility] Work Phone: [phone] Progress note Author Hugo Cervantes [facility] Note Date/Time February 09, 2025 9:14 am [facility] Medical Records Department [address] [place] [address] Progress Note - Hospitalist 02/09/2509 MR#: [id number] Acct: [id number] Name: RICHARD ROY Rep #:[id number] : 1945 79 From: Hugo hollis MD PCP: Kuldip Cosby TECHNOLOGY SPECIALIST-C Status:ADM IN Location: [place] [address] Subjective Subjective Doing well, no issues overnight. [...] 75.5 H, Lymph % (Auto) 10.7 L, Cochran % (Auto) 7.1, Eos % (Auto) 4.5, [...] DVT: Eliquis Charges/Coding Visit Charges Inpatient E&M: 90010 Subs Hosp L2 02/09/25 0914 <Electronically signed by Hugo Cervantes MD> Cosigner Signature (if applicable): CC: ~ Signed [facility] Work Phone: [phone] 538-162407-29-2025 Consult note Author Renetta Gonsales [facility] Note Date/Time February 09, 2025 7:10 am [facility] Medical Records Department [address] [facility] [place] [address] Pharmacokinetic/Renal -Consult 02/08/251930 MR#: [id number] Acct: [id number] Name: RICHARD ROY Rep #:[id number] : 1945 79 From: eRnetta Gonsales PCP: Kuldip Cosby Status:ADM IN Y Location: [place] [address] Consult Antibiotic Management Pharmacy has been consulted [...] Date Hugo Cervantes MD CC: ~ Signed [facility] Work Phone: [phone] 396-245407-29-2025 Progress note Author Kee Mejia [facility] Note Date/Time February 08, 2025 11:1 9pm [facility] Medical Records Department [address] [place] [address] Progress Note 02/08/25 1900 MR#: [id number] Acct: [id number] Name: RICHARD ROY Rep #:[id number] : 1945 79 From: Kee Mejia DPM PCP: Kuldip Cosby TECHNOLOGY SPECIALISTJay Jay Status:ADM IN Location: [place] [address] Subjective Subjective Patient seen today for follow [...] RDW Std Deviation 42.7, RDW Coeff of Nathanile 13.7, Plt Count 263, MPV 8.8, Immature Gran % (Auto) 1.400 H, Neut % (Auto) 72.7 H, Lymph % (Auto) 11.5 L, Cochran % (Auto) 9.5, Eos % (Auto) 4.6, [...] Discussed with Dr. Cervantes and nursing. 02/08/25 6753 <Electronically signed by Kee Mejia DPM> Kee Mejia DPM Cosigner Signature (if applicable): CC: ~ Signed [facility] Work Phone: [phone] Consult note Author Smith Leija [facility] Note Date/Time February 08, 2025 3:37 pm [facility] Medical Records Department [address] [place] [address] Consultation - Infectious Dx 02/08/25 1532 MR#: [id number] Acct: [id number] Name: RICHARD ROY Rep #:[id number] : 1945 79 From: Smith mcdowell MD PCP: Kuldip Cosby Status:ADM IN Location: [facility] [id number]- 1 Assessment & Plan Assessment/Plan (1) Acute [...] do full ROS due to mental status [facility] History MRSA (methicillin resistant staph [...] bisacodyl 10 mg rectal suppository 10 mg FL DAILY PRN constipation 05/30/23 Unknown History loperamide [...] thoracic aortic aneurysm repair Social History housing: care home current occupational status: retired Smoking Status: Never [...] 72.7 H, Lymph % (Auto) 11.5 L, Cochran % (Auto) 9.5, Eos % (Auto) 4.6, [...] Signature (if applicable): CC: Kuldip Cosby~ Signed [facility] Work Phone: 1(673) 448-555907-28-2025 Progress note Author Hugo Cervantes [facility] Note Date/Time February 08, 2025 8:55 am [facility] Medical Records Department [address] [place] [address] Progress Note - Hospitalist 02/08/25 0827 MR#: [id number] Acct: [id number] Name: RICHARD ROY Rep #:[id number] : 1945 79 From: Hugo hollis MD PCP: Kuldip Cosby Status:ADM IN Location: [place] [address]- Subjective Subjective Doing well, no issues overnight. [...] 72.7 H, Lymph % (Auto) 11.5 L, Cochran % (Auto) 9.5, Eos % (Auto) 4.6, [...] DVT: Eliquis Charges/Coding Visit Charges Inpatient E&M: 91565 Subs Hosp L2 02/08/25 0855 <Electronically signed by Hugo Cervantes MD> Cosigner Signature (if applicable): CC: ~ Signed [facility] Work Phone: [phone] 273-597807-27-2025 Progress note Author Kee Mejia [facility] Note Date/Time February 07, 2025 9:40 am [facility] Medical Records Department [address] [place] [address] Progress Note 02/07/2513 MR#: [id number] Acct: [id number] Name: KIRILL DAVID Rep #:[id number] : 1945 79 From: Kee Mejia DPM PCP: Kuldip Cosby TECHNOLOGY SPECIALIST-C Status:ADM IN Location: [place] [id number]- 1 Subjective Subjective Patient was seen this [...] (Auto) 66.1, Lymph % (Auto) 15.0 L, Cochran % (Auto) 9.5, Eos % (Auto) 6.8 [...] Cosigner Signature (if applicable): CC: ~ Signed [facility] Work Phone: [phone]) 243-368907-27-2025 Progress note Author Hugo Cervantes [facility] Note Date/Time February 07, 2025 9:32 am [facility] Medical Records Department [address] [place] [address] Progress Note - Hospitalist 02/07/25917 MR#: [id number] Acct: [id number] Name: RICHARD ROY Rep #:[id number] : 1945 79 From: Hugo hollis MD PCP: Kuldip Cosby TECHNOLOGY SPECIALISTJay Jay Status:ADM IN Location: [place] [address] Subjective Subjective Doing well, wound looks well. [...] (Auto) 66.1, Lymph % (Auto) 15.0 L, Cochran % (Auto) 9.5, Eos % (Auto) 6.8 [...] DVT: Eliquis Charges/Coding Visit Charges Inpatient E&M: 64732 Subs Hosp L2 02/07/25 0932 <Electronically signed by Hugo Cervantes MD> Cosigner Signature (if applicable): CC: ~ Signed [facility] Work Phone: [phone] 493-271007-27-2025 Consult note Author Haile Bautista [facility] Note Date/Time February 07, 2025 9:18 am [facility] Medical Records Department [address] [place] [address] Pharmacokinetic/Renal -Consult 02/06/252218 MR#: [id number] Acct: [id number] Name: RICHARD ROY Rep #:[id number] : 1945 79 From: Haile Bautista PCP: Kuldip Cosby Status:ADM IN Y Location: [place] [address] Consult Antibiotic Management Pharmacy has been consulted [...] Preliminary Meth. resistant Staph. 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 manager of disaster recovery Gram positive organism 02/03/25 18:00 Wound - [...] Date Hugo Cervantes MD CC: ~ Signed [facility] Work Phone: [phone] Consult note Author Haile Bautista [facility] Note Date/Time February 07, 2025 9:18 am [facility] Medical Records Department [address] [facility] [place] [place] [address] Pharmacokinetic/Renal -Consult 02/07/25 0650 MR#: [id number] Acct: [id number] Name: RICHARD ROY Rep #:[id number] : 1945 79 From: Haile Bautista PCP: Kuldip Cosby Status:ADM IN Location: [place] [address] Consult Antibiotic Management Pharmacy has been consulted [...] Date Hugo Cervantes MD CC: ~ Signed [facility] Work Phone: [phone] Consult note Author Hugo Interiano [facility] Note Date/Time February 06, 2025 4:31 pm [facility] Medical Records Department [address] [place] [address] Pharmacokinetic/Renal -Consult 02/06/25 1630 MR#: [id number] Acct: [id number] Name: RICHARD ROY Rep #:[id number] : 1945 79 From: Hugo Garcia [facility] PCP: Kuldip Cosby Status:ADM IN Location: [place] [address] Consult Antibiotic Management Pharmacy has been consulted [...] Preliminary Meth. resistant Staph. 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 manager of disaster recovery Gram positive organism 02/03/25 18:00 Wound - [...] 02/06/25 1631 <Electronically signed by Hugo Gallardo [facility]> Date _ Hugo Interiano [facility] Cosigner Signature (if applicable): Date CC: ~ Signed [facility] Work Phone: [phone] Progress note Author Kee Mejia [facility] Note Date/Time February 06, 2025 10:5 8am [facility] Medical Records Department [address] [place] [address] Progress Note 02/06/25 1054 MR#: [id number] Acct: [id number] Name: RICHARD ROY Rep #:[id number] : 1945 79 From: Kee Mejia DPM PCP: Kuldip Cosby Status:ADM IN Location: [facility] [id number]- 1 Subjective Subjective Patient was seen this [...] 74.2 H, Lymph % (Auto) 10.1 L, Cochran % (Auto) 8.6, Eos % (Auto) 5.9 [...] Preliminary Meth. resistant Staph. 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 manager of disaster recovery Gram positive organism 02/03/25 18:00 Wound - [...] IMPRESSION: Postsurgical change. No complication. Reading Location: [facility] Physical Exam Const alert and [...] daily 02/06/25 1058 <Electronically signed by Kee odll DPM> Date _ Kee Mejia DPM Cosigner Signature (if applicable): Date cc: ~* Signed [facility] Work Phone: [phone] 362-706307-26-2025 Progress note Author Hugo Cervantes [facility] Note Date/Time February 06, 2025 10:2 6am [facility] Medical Records Department [address] [place] [address] Progress Note - Hospitalist 02/06/25 0906 MR#: [id number] Acct: [id number] Name: RICHARD ROY Rep #:[id number] : 1945 79 From: Hugo hollis MD PCP: Kuldip Cosby TECHNOLOGY SPECIALISTJay Jay Status:ADM IN Location: [place] [address] Subjective Subjective No issues overnight, tolerated surgery [...] 74.2 H, Lymph % (Auto) 10.1 L, Cochran % (Auto) 8.6, Eos % (Auto) 5.9 [...] Preliminary Meth. resistant Staph. 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 No complication. Reading Location: [facility] Physical Exam Narrative General: Alert, [...] DVT: Lovenox Charges/Coding Visit Charges Inpatient E&M: 11799 Subs Hosp L2 02/06/25 1026 <Electronically signed by Hugo Cervantes MD> Cosigner Signature (if applicable): CC: ~ Signed [facility] Work Phone: [phone] 575-404607-25-2025 Consult note Author Kareem Pabon [facility] Note Date/Time February 05, 2025 2:23 pm [facility] Medical Records Department [address] [place] [address] Anesthesia Postop Eval I 02/05/25 1422 MR#: [id number] Acct: [id number] Name: RICHARD ROY Rep #:[id number] : 1945 79 From: Kareem REDMAN PCP: Kuldip CosbyC Status:ADM IN Y Race: C Location: [place] [address] 11-12 Anesthesia: Postop Eval I Current Vital [...] CRNA Cosigner Signature: Date CC: ~ Signed [facility] Work Phone: [phone] Radiology Diagnostic study [facility]07-25-2025 Consult note Author Vega [employer] [facility] Note Date/Time February 05, 2025 1:16 pm [facility] Medical Records Department [address] [place] [address] Pre-Anesthesia Evaluation 02/05/25 1258 MR#: [id number] Acct: [id number] Name: RICHARD ROY Rep #:[id number] : 1945 79 From: Vega Hahn MD PCP: Kuldip Cosby Status:ADM IN Y Race: C Location: [place] [address] 11-12 ASA Classification* ASA Classification ASA Classification: [...] ray amputation Anesthesia History Anesthesia History - mis director: Anesthesia History - mis director Hx Hospitalization Yes: GI BLEED 05/30/23 11:36 [...] take am of surgery PONV PONV - mis director: PONV - mis director Female HX of Motion Sickness HX of N/V After Surgery Non-Smoker Duration of Surgery greater than 60 minutes Number of Risk Factors PONV Score Height & Weight Height & Weight: Anesthesia: Height & Weight Height 6 ft 02/05/25 11:18 Weight: 118 kg 02/05/25 11:18 Body Mass Index (BMI) 35.2 02/05/25 11:18 Respiratory Assessment Respiratory Assessment - mis director: Respiratory Tract Infection Hx - mis director Hx Respiratory Tract Infection Yes: pneumonia 02/05/25 02:17 STOP Sleep Apnea STOP Sleep Apnea - mis director: STOP Sleep Apnea - mis director Hx Hypertension Yes 02/03/25 10:30 Hx Sleep [...] Tobacco Use History Tobacco Use History - mis director: Tobacco Use History - mis director Tobacco Use Smoking Status Never smoker 02/03/25 01:28 Hx Tobacco Use No 02/03/25 01:28 Years Smoking Packs Smoked per Day Smoking Cessation Date was within the last 15 years Hx Smoking Cessation Date Hx Smoking Cessation No 02/03/25 01:28 Counseling Hematologic Medial History Hematologic Hx - mis director: 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 Hx of Blood Transfusion Hx of Transfusion [...] confused, unrespo /Reproduction History /Reproductive History - mis director: /Reproductive Hx- mis director Hx Now Gestational Age (in weeks): EDC: [...] 325 Mg Tablet PO Not Given DAILY@1200 [facility] Glucagon 1 mg 02/03/25 01:20 Glucagon 1 [...] 25 Mg Tablet PO 25 mg DAILY [facility] Administration Protocol Nystatin 1 applic 02/05/25 10:00 02/05/25 09:48 Nystatin Powder 15gm Bottle TOPICAL 1 applic BID [facility] Administration Protocol Ondansetron HCl 4 mg 02/03/25 01:20 Ondansetron 4 Mg/2 Ml Vial IV Q8H PRN PRN NAUSEA/VOMITING Pantoprazole Sodium 40 mg 02/03/25 10:00 02/05/25 09:47 Pantoprazole Sodium 40 Mg Tablet PO 40 mg BID FRDE Administration Paroxetine HCl 30 mg 02/03/25 10:00 [...] 1 Gm Tablet PO Not Given 0700,1100,1600 [facility] Tamsulosin HCl 0.4 mg 02/03/25 22:00 02/04/25 22:14 Tamsulosin Hcl 0.4 Mg Capsule PO 0.4 mg QHS FRED Administration Vancomycin Protocol 1 lab 02/06/25 08:30 Vancomycin Trough/Random Due MC 02/06/25 10:30 DAILY [facility] PFSH Medical History MRSA (methicillin resistant staph [...] bisacodyl 10 mg rectal suppository 10 mg FL DAILY PRN constipation 05/30/23 Unknown History loperamide [...] thoracic aortic aneurysm repair Social History housing: care home current occupational status: retired Smoking Status: Never smoker alcohol intake: never substance use type: does not use Review of Systems (Anesthesia) ROS Narrative System reviewed and no additional complaints, except as documented. 02/05/25 1316 <Electronically signed by Vega sales MD> Date _ Vega Hahn MD Cosign Signature: Date CC: ~ Signed [facility] Work Phone: [phone] 179-383107-25-2025 Procedure [facility] 02-05-2025 Progress note Author Hugo Cervantes [facility] Note Date/Time February 05, 2025 8:40 am [facility] Medical Records Department [address] [place] [address] Progress Note - Hospitalist 02/05/25 0838 MR#: [id number] Acct: [id number] Name: RICHARD ROY Rep #:[id number] : 1945 79 From: Hugo hollis MD PCP: Kuldip Cosby TECHNOLOGY SPECIALISTJay Jay Status:ADM IN Location: [place] [address] Subjective Subjective No issues overnight. Hemoglobin and [...] 76.4 H, Lymph % (Auto) 9.4 L, Cochran % (Auto) 8.0, Eos % (Auto) 5.2 [...] DVT: Lovenox Charges/Coding Visit Charges Inpatient E&M: 28788 Subs Hosp L2 02/05/25 0840 <Electronically signed by Hugo Cervantes MD> Cosigner Signature (if applicable): CC: ~ Signed [facility] Work Phone: [phone] Consult note Author Deangelo Quintero [facility] Note Date/Time February 04, 2025 10:0 7pm [facility] Medical Records Department [address] [place] [address] Pharmacokinetic/Renal -Consult 02/04/252206 MR#: [id number] Acct: [id number] Name: RICHARD ROY Rep #:[id number] : 1945 79 From: Deangelo Calvillo od PCP: Kuldip Cosby TECHNOLOGY SPECIALIST-C Status:ADM IN Y Location: [place] [address] Consult Antibiotic Management Pharmacy has been consulted [...] Signature (if applicable): Date CC: ~ Signed [facility] Work Phone: [phone] 165-718107-24-2025 Consult note Author Meghana Cole [facility] Note Date/Time February 04, 2025 7:36 pm [facility] Medical Records Department [address] [place] [address] Consultation - Surgical 02/04/25729 MR#: [id number] Acct: [id number] Name: RICHARD ROY Rep #:[id number] : 1945 79 From: Meghana LOZA PCP: Kuldip Cosby TECHNOLOGY SPECIALISTJay Jay Status:ADM IN [facility] Assessment & Plan Assessment/Plan (1) Type [...] a 79 M who presented to the [facility] ER on 02/02/25 with new cough, fever, [...] from that. Heis on Eliquis for Afib. [facility] Medical History (Updated 02/04/25 @ [...] bisacodyl 10 mg rectal suppository 10 mg FL DAILY PRN constipation 05/30/23 Unknown History loperamide [...] thoracic aortic aneurysm repair Social History housing: care home current occupational status: retired Smoking Status: Never [...] 80.0 H, Lymph % (Auto) 5.3 L, Cochran % (Auto) 9.4, Eos % (Auto) 4.1, [...] Loaiza RVT Charges/Coding Visit Charges Inpatient E&M: 72146 Init Hosp L2 02/04/251905 <Electronically signed by Meghana LOZA> Cosigner Signature (if applicable): 02/04/251935 <Electronically signed by Aneesh Ac MD> CC: Kuldip Cosby~ Signed [facility] Work Phone: 1(137) 366-349307-24-2025 Progress note Author Kee Mejia [facility] Note Date/Time February 04, 2025 3:41 pm [facility] Medical Records Department [address] [place] [address] Progress Note 02/04/25 1537 MR#: [id number] Acct: [id number] Name: RICHARD ROY Rep #:[id number] : 1945 79 From: Kee Mejia DPM PCP: Kuldip Cosby Status:ADM IN Location: [place] [address] Subjective Subjective Patient was seen today for [...] 80.0 H, Lymph % (Auto) 5.3 L, Cochran % (Auto) 9.4, Eos % (Auto) 4.1, [...] discussed wound status with wound nurse. 02/04/25 5673 <Electronically signed by Kee Mejia DPM> Kee Mejia DPM Cosigner Signature (if applicable): CC: ~ Signed [facility] Work Phone: [phone]) 336-753507-24-2025 Consult note Author Crys Carvajal [facility] Note Date/Time February 04, 2025 10:5 3am [facility] Medical Records Department [address] [place] [address] Pharmacokinetic/Renal -Consult 02/04/25 1052 MR#: [id number] Acct: [id number] Name: RICHARD ROY Rep #:[id number] : 1945 79 From: Crys Carvajal PCP: Kuldip Cosby TECHNOLOGY SPECIALISTJay Jay Status:ADM IN Y Location: [place] [address] Consult Antibiotic Management Pharmacy has been consulted [...] Signature (if applicable): Date CC: ~ Signed [facility] Work Phone: [phone] Progress note Author Hugo Cervantes [facility] Note Date/Time February 04, 2025 9:05 am [facility] Medical Records Department [address] [place] [address] Progress Note - Hospitalist 02/04/25901 MR#: [id number] Acct: [id number] Name: RICHARD ROY Rep #:[id number] : 1945 79 From: Hugo hollis MD PCP: Kuldip Cosby TECHNOLOGY SPECIALIST-C Status:ADM IN Location: [place] [id number]- 1 Subjective Subjective No issues overnight, awaiting [...] 80.0 H, Lymph % (Auto) 5.3 L, Cochran % (Auto) 9.4, Eos % (Auto) 4.1, [...] DVT: Lovenox Charges/Coding Visit Charges Inpatient E&M: 60935 Subs Hosp L2 02/04/25 0905 <Electronically signed by Hugo Cervantes MD> Cosigner Signature (if applicable): CC: ~ Signed [facility] Work Phone: [phone] Consult note Author Kee Mejia [facility] Note Date/Time February 03, 2025 11:4 9pm [facility] Medical Records Department [address] [place] [address] Consultation 02/03/25 1815 MR#: [id number] Acct: [id number] Name: RICHARD ROY Rep #:[id number] : 1945 79 From: Kee Mejia DPM PCP: Kuldip Cosby Status:ADM IN Location: [facility] [id number] Assessment & Plan Assessment/Plan (1) Cellulitis [...] to his pacemaker - I discussed with technical stenographer and they are going to check on [...] of heart disease and has a pacemaker. [facility] Medical History History of stress [...] bisacodyl 10 mg rectal suppository 10 mg FL DAILY PRN constipation 05/30/23 Unknown History loperamide [...] thoracic aortic aneurysm repair Social History housing: care home current occupational status: retired Smoking Status: Never [...] 86.2 H, Lymph % (Auto) 3.6 L, Cochran % (Auto) 8.7, Eos % (Auto) 0.6, [...] Clarity Clear, Urine pH 5.0, Ur Specific [place] 1.015, Urine Protein 30 H, Urine Glucose [...] 83.8 H, Lymph % (Auto) 4.0 L, Cochran % (Auto) 8.4, Eos % (Auto) 2.9, [...] 3. Chronic paranasal sinus disease. Reading Location: [facility] Chest X-Ray 02/02/25 20:20 IMPRESSION: Pulmonary findings as above. Reading Location: [facility] Foot X-Ray 02/02/25 20:20 IMPRESSION: No acute osseous abnormality. Reading Location: [facility] Extremity Arterial Study 02/03/25 10:01 [...] (if applicable): cc: Kuldip Cosby ~* Signed [facility] Work Phone: 1(645) 145-818407-23-2025 [facility]07-23-2025 Progress note Author Hugo Cervantes [facility] Note Date/Time February 03, 2025 11:5 6am [facility] Medical Records Department [facility] [address] [place] [address] Progress Note - Hospitalist 02/03/25 0956 MR#: [id number] Acct: [id number] Name: RICHARD ROY Rep #:[id number] : 1945 79 From: Hugo hollis MD PCP: Kuldip Cosby TECHNOLOGY SPECIALIST-C Status:ADM IN Location: [place] [address] Subjective Subjective No issues overnight, maintaining oxygen [...] 86.2 H, Lymph % (Auto) 3.6 L, Cochran % (Auto) 8.7, Eos % (Auto) 0.6, [...] Clarity Clear, Urine pH 5.0, Ur Specific [place] 1.015, Urine Protein 30 H, Urine Glucose [...] 83.8 H, Lymph % (Auto) 4.0 L, Cochran % (Auto) 8.4, Eos % (Auto) 2.9, [...] 3. Chronic paranasal sinus disease. Reading Location: [facility] Chest X-Ray 02/02/25 20:20 IMPRESSION: Pulmonary findings as above. Reading Location: [facility] Foot X-Ray 02/02/25 20:20 IMPRESSION: No acute osseous abnormality. Reading Location: [facility] Physical Exam Narrative General: Alert [...] DVT: Lovenox Charges/Coding Visit Charges Inpatient E&M: 98348 Subs Hosp L2 02/03/25 1156 <Electronically signed by Hugo Cervantes MD> Cosigner Signature (if applicable): CC: ~ Signed [facility] Work Phone: 1(191) 233-926307-23-2025 Consult note Author Aneesh Suazo [facility] Note Date/Time February 03, 2025 2:11 am [facility] Medical Records Department [address] [place] [address] Pharmacokinetic/Renal -Consult 02/03/25 0208 MR#: [id number] Acct: [id number] Name: KIRILLRICHARD Carrillo DAVID Rep #:[id number] : 1945 79 From: Aneesh Suazo PCP: Kuldip Cosby Status:ADM IN Y Location: [place] [address] Consult Antibiotic Management Pharmacy has been consulted [...] Date Karen Aly MD CC: ~ Signed [facility] Work Phone: 1([phone]) 782-566107-23-2025 History and physical note Author Karen Aly [facility] Note Date/Time February 03, 2025 12:2 6am [facility] Medical Records Department [address] [place] [address] H&P Exam - Hospitalist 02/02/251 MR#: [id number] Acct: [id number] Name: RICHARD ROY Rep #:[id number] : 1945 79 From: Karen Aly MD PCP: Kuldip Cosby TECHNOLOGY SPECIALIST-C Status:ADM IN [facility] [id number] HPI - General General Date of Admission: [...] behavioral disturbance history who presents to the [facility] ED on 02/02/2025 with history of [...] to magnesium 4 g IV x 1. [facility] Medical History History of stress [...] bisacodyl 10 mg rectal suppository 10 mg FL DAILY PRN constipation 05/30/23 Unknown History loperamide [...] thoracic aortic aneurysm repair Social History housing: care home current occupational status: retired Smoking Status: Never [...] 86.2 H, Lymph % (Auto) 3.6 L, Cochran % (Auto) 8.7, Eos % (Auto) 0.6, [...] Clarity Clear, Urine pH 5.0, Ur Specific [place] 1.015, Urine Protein 30 H, Urine Glucose [...] 3. Chronic paranasal sinus disease. Reading Location: [facility] Chest X-Ray 02/02/25 20:20 IMPRESSION: Pulmonary findings as above. Reading Location: [facility] Foot X-Ray 02/02/25 20:20 IMPRESSION: No acute osseous abnormality. Reading Location: [facility] Assessment & Plan Assessment/Plan (1) [...] behavioral disturbance history who presents to the [facility] ED on 02/02/2025 with history of [...] 16 minutes. Charges/Coding Visit Charges Inpatient E&M: 52936 Init Hosp L3 Procedures Hospitalists Procedures: 23974 Advncd Care Plan 30 Min 02/03/25 0026 <Electronically signed by Karen Aly MD> Cosigner Signature (if applicable): CC: Dr. Karen Aly MD; Kuldip Cosby~ Signed [facility] Work Phone: 1(290) 195-485607-23-2025 Evaluation note* Diagnosis Onset Date Resolution Status [...] foot ulcer acute February 02, 2025 11:12pm [facility] Work Phone: [phone] Evaluation note* Diagnosis Onset Date Resolution Status [...] h foot ulcer acute March 03 3:23pm [facility] Work Phone: [phone]) [phone] Evaluation note* Diagnosis Onset Date Resolution Status [...] 9:47am Sick sinus syndrome chronic 2024 9:47am [facility] [employer] [facility] Work Phone: [phone] Evaluation note* Diagnosis Onset Date Resolution Status [...] Sick sinus syndrome chronic Septe mb2024 12:14pm [facility] Work Phone: 1([phone]) 521-470507-23-2025 Discharge summary Author Nicholas Galarza [facility] Note Date/Time February 02, 2025 10:4 5pm [facility] Medical Records Department [address] [place] [address] Emergency Department Summary 02/02/25 MR#: [id number] Acct: [id number] Name: RICHARD ROY Rep #:[id number] : 1945 79 From: Nicholas Lemons PCP: Kuldip Cosby TECHNOLOGY SPECIALIST-C Status:REG ER Location: ED HPI History [...] bisacodyl 10 mg rectal suppository 10 mg FL DAILY PRN constipation 05/30/23 Unknown History loperamide [...] thoracic aortic aneurysm repair Social History housing: care home current occupational status: retired Smoking Status: Never [...] [facility] No she was called because [...] recent hospitalizations, reviewed medications. Reviewed x-ray from care home which reported no obvious focal infiltrate Factors affecting care: n as per HPI Social determinants of health: correction resident History obtained from others: EMS Consults: [...] Dispo: Discharge This note was generated with [employer] dictation software. It may contain incorrectwords, spelling, [...] 86.2 H Lymph % (Auto) 3.6 L Cochran % (Auto) 8.7 Eos % (Auto) 0.6 [...] Clarity Clear Urine pH 5.0 Ur Specific [place] 1.015 Urine Protein 30 H Urine Glucose [...] 3. Chronic paranasal sinus disease. Reading Location: [facility] Chest X-Ray 02/02/25 20:20 IMPRESSION: Pulmonary findings as above. Reading Location: [facility] Foot X-Ray 02/02/25 20:20 IMPRESSION: No acute osseous abnormality. Reading Location: [facility] Discharge Plan Triage Chief Complaint: [...] mg PO QHS Patient Comments: PRN PER GROUP HOME MAR. memantine 10 mg Tablet 10 mg PO BID Qty: 0 0RF acetaminophen 325 mg tablet 650 mg PO .q12hrs Patient Comments: PRN PER GROUP HOME MAR bisacodyl 10 mg suppository 10 mg FL DAILY PRN (Reason: constipation) loperamide [Anti-Diarrheal (loperamide)] [...] Luis Caldera MD [Non-Staff] - Print Language: Macanese What to do if you have Problems For any increased pain, shortness of breath, bleeding, nausea or vomiting, chestpain, or any unexpected problems, contact your Primary Care Provider. Call [facility] ([phone]) or report to the closest Emergency Room. Call 911 if necessary. 02/02/252244 <Electronically signed by Nicholas Galarza DO> Cosigner Signature (if applicable): CC: Kuldip Cosby ~ Signed [facility] Work Phone: [phone]) [phone] Discharge summary Author Nicholas Galarza [facility] Note Date/Time February 02, 2025 10:4 5pm [facility] Medical Records Department [address] [place] [address] Emergency Department Summary 02/02/25 MR#: [id number] Acct: [id number] Name: RICHARD ROY Rep #:[id number] : [...] bisacodyl 10 mg rectal suppository 10 mg FL DAILY PRN constipation 05/30/23 Unknown History loperamide [...] thoracic aortic aneurysm repair Social History housing: care home current occupational status: retired Smoking Status: Never [...] Air Room Air Oxygen Flow Rate (L/min) [facility] MDM MDM Narrative Medical decision making narrative: HISTORY OF PRESENT ILLNESS: Chief complaint: Cough, lethargy, altered mental status and fever 79-year-old male history of type 2 diabetes, hyperlipidemia, PE, A-fib on Eliquis, secondary heart block status post pacemaker presents with recent cough,lethargy and fever. Also noted altered mental status. History is provided by and son. notes [facility] No she was called because he [...] recent hospitalizations, reviewed medications. Reviewed x-ray from care home which reported no obvious focal infiltrate Factors affecting care: n as per HPI Social determinants of health: correction resident History obtained from others: EMS Consults: [...] 86.2 H Lymph % (Auto) 3.6 L Cochran % (Auto) 8.7 Eos % (Auto) 0.6 [...] Clarity Clear Urine pH 5.0 Ur Specific [place] 1.015 Urine Protein 30 H Urine Glucose [...] 3. Chronic paranasal sinus disease. Reading Location: [id number] Chest X-Ray 02/02/25 20:20 IMPRESSION: Pulmonary findings as above. Reading Location: [facility] Foot X-Ray 02/02/25 20:20 IMPRESSION: No acute osseous abnormality. Reading Location: [facility] Discharge Plan Triage Chief Complaint: [...] mg PO QHS Patient Comments: PRN PER GROUP HOME MAR. memantine 10 mg Tablet 10 mg PO BID Qty: 0 0RF acetaminophen 325 mg tablet 650 mg PO .q12hrs Patient Comments: PRN PER GROUP HOME MAR bisacodyl 10 mg suppository 10 mg FL DAILY PRN (Reason: constipation) loperamide [Anti-Diarrheal (loperamide)] [...] Luis Caldera MD [Non-Staff] - Print Language: Macanese What to do if you have Problems For any increased pain, shortness of breath, bleeding, nausea or vomiting, chestpain, or any unexpected problems, contact your Primary Care Provider. Call [facility] ([phone]) or report to the closest Emergency Room. Call 911 if necessary. 02/02/252244 <Electronically signed by Nicholas Galarza DO> Cosigner Signature (if applicable): CC: Kuldip Cosby ~ Signed [facility] Work Phone: [phone]) 539-346207-23-2025 History and physical note Author Karen Aly [facility] Note Date/Time February 03, 2025 12:2 6am [facility] Medical Records Department [address] [place] [address] H&P Exam - Hospitalist 02/02/252240 MR#: [id number] Acct: [id number] Name: RICHARD ROY Rep #:[id number] : 1945 79 From: Karen Aly MD PCP: Kuldip Cosby Status:ADM IN Location: [place] [address] HPI - General General Date of Admission: [...] behavioral disturbance history who presents to the [facility] ED on 02/02/2025 with history of [...] to magnesium 4 g IV x 1. [facility] Medical History History of stress [...] bisacodyl 10 mg rectal suppository 10 mg FL DAILY PRN constipation 05/30/23 Unknown History loperamide [...] thoracic aortic aneurysm repair Social History housing: care home current occupational status: retired Smoking Status: Never [...] 86.2 H, Lymph % (Auto) 3.6 L, Cochran % (Auto) 8.7, Eos % (Auto) 0.6, [...] Clarity Clear, Urine pH 5.0, Ur Specific [place] 1.015, Urine Protein 30 H, Urine Glucose [...] 3. Chronic paranasal sinus disease. Reading Location: [facility] Chest X-Ray 02/02/25 20:20 IMPRESSION: Pulmonary findings as above. Reading Location: [facility] Foot X-Ray 02/02/25 20:20 IMPRESSION: No acute osseous abnormality. Reading Location: [facility] Assessment & Plan Assessment/Plan (1) [...] behavioral disturbance history who presents to the [facility] ED on 02/02/2025 with history of [...] 16 minutes. Charges/Coding Visit Charges Inpatient E&M: 17252 Init Hosp L3 Procedures Hospitalists Procedures: 78086 Advncd Care Plan 30 Min 02/03/25 0026 <Electronically signed by Karen Aly MD> Cosigner Signature (if applicable): CC: Dr. Karen Aly MD; Kulidp Cosby~ Signed [facility] Work Phone: [phone]) [phone] History and physical note [facility] Medical Records Department [address] [place] [address] H&P Exam - Hospitalist 02/02/25 2241 MR#: [id number] Acct: [id number] Name: RICHARD ROY Rep #:[id number] : 1945 79 From: Karen Aly MD PCP: Kuldip Cosby Status:ADM IN [place] [facility] [id number] HPI - General General Date of Admission: [...] behavioral disturbance history who presents to the [facility] ED on 02/02/2025 with history of [...] to magnesium 4 g IV x 1. [facility] Medical History History of stress [...] bisacodyl 10 mg rectal suppository 10 mg FL DAILY PRN constipation 05/30/23 Unknown History loperamide [...] thoracic aortic aneurysm repair Social History housing: care home current occupational status: retired Smoking Status: Never [...] 86.2 H, Lymph % (Auto) 3.6 L, Cochran % (Auto) 8.7, Eos % (Auto) 0.6, [...] Clarity Clear, Urine pH 5.0, Ur Specific [place] 1.015, Urine Protein 30 H, Urine Glucose [...] 3. Chronic paranasal sinus disease. Reading Location: [facility] Chest X-Ray 02/02/25 20:20 IMPRESSION: Pulmonary findings as above. Reading Location: [facility] Foot X-Ray 02/02/25 20:20 IMPRESSION: No acute osseous abnormality. Reading Location: [facility] Assessment & Plan Assessment/Plan (1) [...] behavioral disturbance history who presents to the [facility] ED on 02/02/2025 with history of [...] 16 minutes. Charges/Coding Visit Charges Inpatient E&M: 00100 Init Hosp L3 Procedures Hospitalists Procedures: 94913 Advncd Care Plan 30 Min 02/03/25 0026 Cosigner Signature (if applicable): CC: Dr. Karen Aly MD; Kuldip Cosby~ Signed [facility]07-22-2025 Discharge summary [facility] Medical Records Department [address] [place] [address] Emergency Department Summary 02/02/25 MR#: [id number] Acct: [id number] Name: RICHARD ROY Rep #:[id number] : 1945 79 From: Nicholas Lemons PCP: Kuldip Cosby TECHNOLOGY SPECIALIST-C Status:REG ER Location: ED HPI History [...] bisacodyl 10 mg rectal suppository 10 mg FL DAILY PRN constipation 05/30/23 Unknown History loperamide [...] thoracic aortic aneurysm repair Social History housing: care home current occupational status: retired Smoking Status: Never [...] [facility] No she was called because [...] recent hospitalizations, reviewed medications. Reviewed x-ray from care home which reported no obvious focal infiltrate Factors affecting care: n as per [facility] Social determinants of health: correction resident History obtained from others: EMS Consults: [...] Dispo: Discharge This note was generated with [employer] dictation software. It may contain incorrectwords, spelling, [...] 86.2 H Lymph % (Auto) 3.6 L Cochran % (Auto) 8.7 Eos % (Auto) 0.6 [...] Clarity Clear Urine pH 5.0 Ur Specific [place] 1.015 Urine Protein 30 H Urine Glucose [...] 3. Chronic paranasal sinus disease. Reading Location: [facility] Chest X-Ray 02/02/25 20:20 IMPRESSION: Pulmonary findings as above. Reading Location: [facility] Foot X-Ray 02/02/25 20:20 IMPRESSION: No acute osseous abnormality. Reading Location: [facility] Discharge Plan Triage Chief Complaint: Fever ED Provider: Nichloas Galarza Dx/Rx/DC Orders Prescriptions: No Action metoprolol [...] mg PO QHS Patient Comments: PRN PER GROUP HOME MAR. memantine 10 mg Tablet 10 mg PO BID Qty: 0 0RF acetaminophen 325 mg tablet 650 mg PO .q12hrs Patient Comments: PRN PER GROUP HOME MAR bisacodyl 10 mg suppository 10 mg FL DAILY PRN (Reason: constipation) loperamide [Anti-Diarrheal (loperamide)] [...] Luis Caldera MD [Non-Staff] - Print Language: Macanese What to do if you have Problems For any increased pain, shortness of breath, bleeding, nausea or vomiting, chestpain, or any unexpected problems, contact your Primary Care Provider. Call [facility] ([phone]) or report tothe closest Emergency Room. Call 911 if necessary. 02/02/255 Cosigner Signature (if applicable): CC: Kuldip Cosby ~ Signed [facility]07-22-2025 Radiology Diagnostic study note [facility] Imaging Services [address] [place] [address] Foot 2 Views MR#: [id number] Acct: [id number] Name: RICHARD ROY Rep #: [id number] : 1945 M 79 From: Pascual Patino MD PCP: Kuldip Cosby Status: REG ER Study:Foot 2 Views Date of Exam: 5 Exam# [id number] Ordering Dr: Ronak Galarza DO PROCEDURE: FOOT 2 VIEWS 02/02/2025 REASON FOR EXAM: REDNESS, LATERAL 5TH DIGIT ULCER TECHNIQUE: FOOT 2 VIEWS COMPARISON: None. FINDINGS: No evidence of acute fracture or dislocation. The joint spaces are maintained. Heavy atherosclerosis. RAD/Foot 2 Views IMPRESSION: No acute osseous abnormality. Reading Location: [id number] CC: Dr. Nicholas Galarza DO; Kuldip Cosby ~ Fountain Clerk: Signed [facility]07-22-2025 Radiology Diagnostic study note [facility] Imaging Services [address] [place], [place] [id number] Chest 1 View (Portable) MR#: [id number] Acct: [id number] Name: RICHARD ROY Rep #: [id number] : 1945 M 79 From: Pascual Patino MD PCP: Kuldpi Cosby Status: REG ER Study:Chest 1 View (Portable) Date of Exam: 02/02/25 Exam# [id number] Ordering Dr: Ronak Galarza DO PROCEDURE: CHEST 1 VIEW (PORTABLE) 02/02/2025 REASON FOR EXAM: ALTERED MENTAL STATUS TECHNIQUE: Frontal view of the chest. COMPARISON: 02/10/2023. FINDINGS: The heart is enlarged. Prior sternotomy. Left chest pacemaker. Left midlung consolidative opacity which may represent pneumonia (limited assessment due to rotation). RAD/Chest 1 View (Portable) IMPRESSION: Pulmonary findings as above. Reading Location: [id number] CC: Dr. Nicholas Galarza DO; Kuldip Cosby ~ Fountain Clerk: Signed [facility]07-22-2025 Radiology Diagnostic study note [facility] Imaging Services [address] [place], [place] [id number] Brain/Head without Contrast MR#: [id number] Acct: [id number] Name: RICHARD ROY Rep #: [id number] : 1945 M 79 From: Philip Johnson MD PCP: Kuldip Cosby Status: REG ER Study:Brain/Head without Contrast Date of Exa m: 02/02/25 Exam# [id number] Ordering Dr: Ronak Galarza DO PROCEDURE: BRAIN/HEAD [...] 3. Chronic paranasal sinus disease. Reading Location: [id number] CC: Dr. Nicholas Galarza DO; Kuldip Cosby ~ Fountain Clerk: Signed [facility]03-31-2025 Evaluation note* Diagnosis Onset Date Resolution Status Admit Date Presence of cardiac pacemaker acute October 12, 2024 1:09pm Atrial fibrillation chronic October 12, 2024 1:09pm Diabetes chronic October 12 1:09pm HLD (hyperlipidemia) chronic [place] [facility] 2024 1:09pm HTN (hypertension) chronic October 12, 2024 1:09pm Sick sinus syndrome chronic October 12, 2024 1:09pm [facility] Work Phone: 1(998) 216-469503-31-2025 Evaluation note* Diagnosis Onset Date Resolution Status Admit Date Presence of cardiac pacemaker acute October 12, 2024 1:09pm Atrial fibrillation chronic October 12, 2024 1:09pm Diabetes chronic October 12 1:09pm HLD (hyperlipidemia) chronic [place] [facility] 2024 1:09pm HTN (hypertension) chronic October 12, 2024 1:09pm Sick sinus syndrome chronic October 12, 2024 1:09pm Pneumonia acute February 02 11:12pm [facility] Work Phone: 1([phone]) 922-586311-20-2023 Procedure [facility] 02-13-2023 Consult note Author Haile Bautista [facility] February 13, 2023 2:50pm Note Date/Time February 13, 2023 2:5 0pm [facility] Medical Records Department [address] [place] [address] Counseling Note - Pharmacy 02/13/23 1449 MR#: [id number] Acct: [id number] Name: RICHARD ROY Rep #:[id number] : 1945 77 From: Haile Bautista PCP: Dr. Luis Caldera MD Status :ADM IN Y Location: [place] [address] Pharmacy [place] Med Reconciliation Pharmacy Service has performed discharge [...] Signature (if applicable): Date CC: ~ Signed [facility] Work Phone: 1([phone]) [phone] Discharge summary Author Gabriel [facility] February 13, 2023 2:24pm Note Date/Time February 13, 2023 2:1 5pm [facility] Medical Records Department [address] [place] [address] Transfer to [facility] MR#: [id number] Acct: [id number] Name: RICHARD ROY Rep #:[id number] : 1945 77 From: Gabriel Giraldo DO PCP: Dr. Luis Caldera MD Status :ADM IN Certification of patient admission REQUIRED AT TIME OF ADMISSION. I CERTIFY THAT POST-HOSPITAL ECF SERVICES ARE REQUIRED TO BE GIVEN ON AN IN-PATIENT BASIS BECAUSE OF THE ABOVE NAMED PATIENT'S NEED FOR GROUP HOME CARE ON A CONTINUING BASIS FOR THE CONDITION(S) FOR WHICH HE/SHE WAS RECEIVING IN-PATIENT HOSPITAL SERVICES PRIOR TO HIS/HER TRANSFER TO THE [facility]. 02/13/23 1424<Electronically signed by Gabriel Tereletsky [...] mg PO QHS Patient Comments: PRN PER GROUP HOME MAR. acetaminophen 325 mg Tablet 650 mg PO TID Patient Comments: PRN PER GROUP HOME MAR cephalexin 500 mg capsule 500 mg [...] 100 unit/mL insulin pen See Protocol subcut [facility] Protocol: 6. Sliding Scale Insulin [...] in before D/C Order can be placed): [facility] 02/13/23 1424 <Electronically signed by Gabriel Giraldo DO> Cosigner Signature (if applicable): CC: Dr. Luis Caldera MD; Dr. Smith Leija MD ~ [facility] Work Phone: 1(776) 261-245508-01-2023 Progress note Author Gabriel [facility] February 12, 2023 4:48pm Note Date/Time February 12, 2023 4:4 8pm [facility] Medical Records Department [address] [place] [address] Progress Note - Hospitalist 02/12/23 1639 MR#: [id number] Acct: [id number] Name: RICHARD ROY Rep #:[id number] : 1945 77 From: Gabriel Giraldo DO PCP: Dr. Luis Caldera MD Status :[facility]M [id number] Reason for Visit Reason for Visit: Diagnoses [...] 76.5 H, Lymph % (Auto) 8.1 L, Cochran % (Auto) 12.5 H, Eos % (Auto) [...] 35 minutes Charges/Coding Visit Charges Inpatient E&M: 88082 Subs Hosp L2 02/12/23 1648 <Electronically signed by Gabriel Giraldo DO> Cosigner Signature (if applicable): CC: ~ Signed [facility] Work Phone: 1(135) 907-239008-01-2023 Consult note Author Smith Leija [facility] February 12, 2023 2:16pm Note Date/Time February 12, 2023 2:1 6pm [facility] Medical Records Department [address] [facility] [place] [address] Consultation - Infectious Dx 02/12/23 1412 MR#: [id number] Acct: [id number] Name: RICHARD ROY Rep #:[id number] : 1945 77 From: Smith mcdowell MD PCP: Dr. Luis Caldera MD Status :ADM IN Location: [place] [address] Assessment & Plan Assessment/Plan (1) Bacteremia: PLAN: [...] keflex in ED 02/10, sent back to [facility]. Had low grade fever, returned here with (+) ucx and (+)bcx with GNR. Admitted on ceftriaxone, feeling ok today. No complaints, deniesfever, chest pain, abd pain, dysuria, n/v/d. Full ROS performed and neg except as noted above. [facility] Medical History AAA (abdominal aortic [...] Hx of abdominal surgery Social History housing: care home current occupational status: retired Smoking Status: Never [...] 76.5 H, Lymph % (Auto) 8.1 L, Cochran % (Auto) 12.5 H, Eos % (Auto) 0.8, Baso % (Auto) 0.1, Absolute Neuts(auto) 5.7, Absolute Lymphs (auto) 0.61 L, Nucleated RBC % 0, PT 19.3 H, INR 1.6 Rhythm Strip Rhythm Strip: paced Rate: 95 Ectopy: None 02/12/23 1416 <Electronically signed by Smith Leija MD> Cosigner Signature (if applicable): CC: Dr. Luis Caldera MD; Dr. Smith Leija MD~ Signed [facility] Work Phone: 1(281) 779-117908-01-2023 Discharge summary Author Dandy Sauer [facility] February 12, 2023 2:03am Note Date/Time February 11, 2023 5:05 pm [facility] Medical Records Department [address] [place] [address] Emergency Department Summary 02/11/23 MR#: [id number] Acct: [id number] Name: RICHARD ROY Rep #:[id number] : 1945 77 From: Dandy Sauer MD PCP: Dr. Luis Caldera MD Status :ADM IN Location: MS3 [id number] HPI History of Present Illness Chief Complaint: [...] mostly the lethargy is the issue acutely. [facility] Medical History (Updated 02/11/23 @ 19:31 by [...] Hx of abdominal surgery Social History housing: care home current occupational status: retired Smoking Status: Never [...] infection), Bacteremia Disposition Disposition: Acute Care Hospital [facility] Discharge Date/Time: 02/11/23 19:06 What to do if you have Problems For any increased pain, shortness of breath, bleeding, nausea or vomiting, chestpain, or any unexpected problems, contact your Primary Care Provider. Call [facility] ([phone]) or report to the closest Emergency Room. Call 911 if necessary. 02/12/23 0203 <Electronically signed by Dandy Sauer MD> Cosigner Signature (if applicable): CC: Dr. Luis Caldera MD ~ Signed [facility] Work Phone: 1([phone]) 717-168707-31-2023 History and physical note Author Jesus Burnham [facility] February 11, 2023 7:38pm Note Date/Time February 11, 2023 7:39 pm [facility] Medical Records Department [address] [place] [address] History & Physical Exam 02/11/231928 MR#: [id number] Acct: [id number] Name: RICHARD ROY Rep #:[id number] : 1945 77 From: Jesus Burnham MD PCP: Dr. Luis Caldera MD Status :ADM [place] [facility] [id number] HPI - General General Date of Admission: [...] tract infection and sent back to the care home facility, however, today the patient has become more obtunded and sleeping excessively. Lactic acid elevation is noted and patient is on pacemaker. He denies any chest pain, shortness of breath and/or fevers orchills however is not a great historian at present time. Patient's is present at bedside and apparently the son is the DURABLE POWER OF JEWEL LATHE OPERATOR for healthcare and has orders signed for DNR CCA with no intubation. He will be admitted to the general medical floor placed on Rocephin, consult for infectiousdisease due to new implanted pacemaker. [facility] Medical History Amputation of right [...] Hx of abdominal surgery Social History housing: care home current occupational status: retired Smoking Status: Never [...] on Coumadin Charges/Coding Visit Charges Inpatient E&M: 97125 Init Hosp L2 02/11/231937 <Electronically signed by Jesus Burnham MD> Cosigner Signature (if applicable): CC: Dr. Luis Caldera MD; Dr. Jesus Burhnam MD~ Signed [facility] Work Phone: 1(681) 485-562007-17-2023 Miscellaneous Notes* Telephone Encounter - Tania Heller LPN - 01/28/2023 2:22 PM EDT Miya with [facility] calls to report pt was admitted to their facility over the weekend. Miya is requesting immunization record be faxed to: [phone]. Immunization record faxed as requested. Tania Heller LPN [facility] Discharge summary Author Ryan Tinoco [facility] January 26, 2023 12:56pm Note Date/Time January 26, 2023 12:4 6pm [facility] Medical Records Department [address] [place] [address] Discharge Summary 01/26/23 1157 MR#: [id number] Acct: [id number] Name: RICHARD ROY Rep #:[id number] : 1945 77 From: Ryan Delgado PCP: Dr. Luis Caldera MD Status :ADM IN Location: [place] [id number] Providers Date of Admission: 01/21/23 Date [...] is a 77-year-old gentleman being admitted from [facility] for multiple episodes of syncope and [...] the . His medical care is under [facility]. 01/22: Hemoglobin dropped to 8.9. Patient had [...] there was 2 dropped heartbeat in EKG. property assessment monitor shows heart rate slowed down to [...] that repaired along with aortic valve in [facility]. His finance business partner is Dr. Huston in [facility]. I think this is most probably due to start of the octreotide drip as patient was in sinus normal rhythm at time ofadmission. Octreotide discontinued. Police [employer] consulted. 2D echo ordered. 01/23: Echo states EF 55 to 60%, normal LV systolic function. Trivial MR. Mild diffuse aortic valve calcification. Normal left atrium. Plan: Police Cadet will talk to Dr. Chandra regarding assessment for pacemaker 01/24: Patient has hypernatremia and hyperchloremia. IV fluid D5W started. Patient is still has AV block, P waves but rhythm is irregular. Twelve-lead EKGordered. 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 Dr. Ling will talk to Dr. Chandra. 01/25: For now plan is to monitor. No plan for pacemaker as per the finance business partner. property assessment monitor shows irregular heartbeat , Mobitz type [...] or advanced directive. His is power of securities attorney for health. After discussion of benefits/risks [...] Heart rate in 50s.. 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 No chest pain or tightness. Physical exam [...] 78.4 H, Lymph % (Auto) 8.1 L, Cochran % (Auto) 9.6, Eos % (Auto) 1.6, [...] Qty: 0 0RF Patient Comments: PRN PER GROUP HOME MAR melatonin 3 mg Tablet 3 mg PO QHS PRN PRN (Reason: Insomnia) Qty: 1 0RF Patient Comments: PRN PER GROUP HOME MAR. duloxetine [Cymbalta] 60 mg capsule,delayed release(DR/EC) 60 mg PO DAILY cholecalciferol (vitamin D3) 1,250 mcg (50,000 unit) tablet 1,250 mcg PO MO insulin lispro [Humalog KwikPen Insulin] 100 unit/mL insulin pen See Protocol subcut [facility] Protocol: 6. Sliding Scale Insulin [...] in before D/C Order can be placed): [facility] Facility Charges/Coding Visit Charges Inpatient E&M: 48315 Disch Hosp >30min 01/26/23 1256 <Electronically signed by Ryan Tinoco MD> Cosigner Signature (if applicable): CC: Dr. Luis Caldera MD; Dr. Ryan Tinoco MD~ Signed [facility] Work Phone: [phone]) [phone] Discharge summary Author Ryan Tinoco [facility] January 26, 2023 11:57am Note Date/Time January 26, 2023 7:59 am [facility] Medical Records Department [address] [place] [address] Transfer to [facility] MR#: [id number] Acct: [id number] Name: RICHARD ROY Rep #:[id number] : 1945 77 From: Ryan Delgado PCP: Dr. Luis Caldera MD Status :ADM IN Certification of patient admission REQUIRED AT TIME OF ADMISSION. I CERTIFY THAT POST-HOSPITAL ECF SERVICES ARE REQUIRED TO BE GIVEN ON AN IN-PATIENT BASIS BECAUSE OF THE ABOVE NAMED PATIENT'S NEED FOR GROUP HOME CARE ON A CONTINUING BASIS FOR THE [...] is a 77-year-old gentleman being admitted from [facility] for multiple episodes of syncope and [...] the . His medical care is under [facility]. 01/22: Hemoglobin dropped to 8.9. Patient had [...] there was 2 dropped heartbeat in EKG. property assessment monitor shows heart rate slowed down to [...] that repaired along with aortic valve in [facility]. His finance business partner is Dr. Huston in [facility]. I think this is most probably due to start of the octreotide drip as patient was in sinus normal rhythm at time ofadmission. Octreotide discontinued. Police Cad[employer] consulted. 2D echo ordered. 01/23: Echo states EF 55 to 60%, normal LV systolic function. Trivial MR. Mild diffuse aortic valve calcification. Normal left atrium. Plan: Police [employer]et will talk to Dr. Chandra regarding assessment for pacemaker 01/24: Patient has hypernatremia and hyperchloremia. IV fluid D5W started. Patient is still has AV block, P waves but rhythm is irregular. Twelve-lead EKGordered. 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 Dr. Ling will talk to Dr. hCandra. 01/25: For now plan is to monitor. No plan for pacemaker as per the finance business partner. property assessment monitor shows irregular heartbeat , Mobitz type [...] or advanced directive. His is power of securities attorney for health. After discussion of benefits/risks [...] Qty: 0 0RF Patient Comments: PRN PER GROUP HOME MAR melatonin 3 mg Tablet 3 mg PO QHS PRN PRN (Reason: Insomnia) Qty: 1 0RF Patient Comments: PRN PER GROUP HOME MAR. donepezil 10 mg tablet 10 mg [...] in before D/C Order can be placed): [facility] Facility (6) Anemia Qualifiers: Anemia type: iron deficiency Iron deficiency anemia type: other iron deficiency Qualified Code(s): D50.8 - Other iron deficiency anemias 01/26/23 1157 <Electronically signed by Ryan Tinoco MD> Cosigner Signature (if applicable): CC: Dr. Luis Caldera MD; Dr. Lizzeth Riggs MD ~ [facility] Work Phone: [phone]) 733-257707-14-2023 Progress note Author Lizzeth Riggs [facility] January 25, 2023 4:08pm Note Date/Time January 25, 2023 1:09 pm [facility] Medical Records Department [address] [place] [address] Progress Note - Cardiology 01/25/23 1308 MR#: [id number] Acct: [id number] Name: RICHARD ROY Rep #:[id number] : 1945 77 From: Rebecca LOZA PCP: Dr. Luis Caldera MD Status :ADM IN Location: [place] [address] Documented by User: DENIA Wilkinson 01/25/23 14:14 [...] Albumin (DAVID) 2.5 L, Albumin/Globulin (DAVID) 1.4, Ragbv-1-Bvvsjwlzo DAVID 0.2, Qbltp-9-Qxjrzsjhs DAVID 0.6, Beta-Globulins (DAVID) 0.7, Gamma Globulins [...] 83.4 H, Lymph % (Auto) 5.9 L, Cochran % (Auto) 7.8, Eos % (Auto) 1.0, [...] 83.4 H, Lymph % (Auto) 5.9 L, Cochran % (Auto) 7.8, Eos % (Auto) 1.0, [...] stable hemodynamically. Charges/Coding Visit Charges Inpatient E&M: 14635 Subs Hosp L2 Documented by User: Dr. [...] notes and documentation Patient to follow-up as finance business partner Dr. Chandra with the results of the event monitor. To evaluate for permanent pacemaker implant. 01/25/23 1414 <Electronically signed by Rebecca LOZA> Cosigner Signature (if applicable): 01/25/23 1608 <Electronically signed by Lizzeth Riggs MD> CC: ~ Signed [facility] Work Phone: 1([phone]) 418-923507-14-2023 Progress note Author Ryan Tinoco [facility] January 25, 2023 2:08pm Note Date/Time January 25, 2023 9:30 am [facility] Medical Records Department [address] [place] [address] Progress Note - Hospitalist 01/25/2328 MR#: [id number] Acct: [id number] Name: RICHARD ROY Rep #:[id number] : 1945 77 From: Ryan Delgado PCP: Dr. Lius Caldera MD Status :ADM IN Location: [place] [address] Reason for Visit Reason for Visit: Diagnoses [...] 83.4 H, Lymph % (Auto) 5.9 L, Cochran % (Auto) 7.8, Eos % (Auto) 1.0, [...] Heart rate in 50s.. 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 No chest pain or tightness. Physical exam [...] is a 77-year-old gentleman being admitted from [facility] for multiple episodes of syncope and [...] the . His medical care is under [facility]. 01/22: Hemoglobin dropped to 8.9. Patient had [...] Albumin (DAVID) 2.5 L, Albumin/Globulin (DAVID) 1.4, Zxydm-9-Qpxzokswd DAVID 0.2, Wdsjq-9-Fblfkrxmf DAVID 0.6, Beta-Globulins (DAVID) 0.7, Gamma Globulins [...] 83.4 H, Lymph % (Auto) 5.9 L, Cochran % (Auto) 7.8, Eos % (Auto) 1.0, [...] there was 2 dropped heartbeat in EKG. property assessment monitor shows heart rate slowed down to [...] that repaired along with aortic valve in [facility]. His finance business partner is Dr. Huston in [facility]. I think this is most probably due to start of the octreotide drip as patient was in sinus normal rhythm at time ofadmission. Octreotide discontinued. Police [employer] consulted. 2D echo ordered. 01/23: Echo states EF 55 to 60%, normal LV systolic function. Trivial MR. Mild diffuse aortic valve calcification. Normal left atrium. Plan: Police [employer]et will talk to Dr. Chandra regarding assessment for pacemaker 01/24: Patient has hypernatremia and hyperchloremia. IV fluid D5W started. Patient is still has AV block, P waves but rhythm is irregular. Twelve-lead EKGordered. 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 Dr. Ling will talk to Dr. Chandra. 01/25: For now plan is to monitor. No plan for pacemaker as per the finance business partner. property assessment monitor shows irregular heartbeat , Mobitz type [...] or advanced directive. His is power of securities attorney for health. After discussion of benefits/risks [...] systolic function Charges/Coding Visit Charges Inpatient E&M: 00730 Subs Hosp L2 01/25/23 1408 <Electronically signed by Ryan Tinoco MD> Cosigner Signature (if applicable): CC: ~ Signed [facility] Work Phone: 1([phone]) [phone] Progress note Author Karen Aly [facility] January 24, 2023 8:23pm Note Date/Time January 24, 2023 8:23 pm [facility] Medical Records Department [address] [place] [address] Progress Note - Hospitalist 01/24/232021 MR#: [id number] Acct: [id number] Name: RICHARD ROY Rep #:[id number] : 1945 77 From: Karen Aly MD PCP: Dr. 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 He is asymptomatic. Cardiology following and made aware also by RN that it is recurrent. 01/24/232022 <Electronically signed by Karen Aly MD> Cosigner Signature (if applicable): CC: ~ Signed [facility] Work Phone: 1(444) 118-550607-13-2023 Progress note Author Liu Friend [facility] January 24, 2023 5:07pm Note Date/Time January 24, 2023 5:07 pm [facility] Medical Records Department [address] [place] [address] Progress Note - GI 01/24/231702 MR#: [id number] Acct: [id number] Name: RICHARD ROY Rep #:[id number] : 1945 77 From: Liu Friend DO PCP: Dr. Luis Caldera MD Status :ADM IN Location: [place] [address] Subjective Subjective Patient laying in bed with [...] 82.8 H, Lymph % (Auto) 5.3 L, Cochran % (Auto) 8.9, Eos % (Auto) 1.3, [...] ensure healing. Charges/Coding Visit Charges Inpatient E&M: 37639 Subs Hosp L3 01/24/237 <Electronically signed by Liu Hackett DO> Cosigner Signature (if applicable): CC: ~ Signed [facility] Work Phone: 1(455) 617-311407-13-2023 Progress note Author Lizzeth Riggs [facility] January 24, 2023 4:25pm Note Date/Time January 24, 2023 1:41 pm [facility] Medical Records Department [address] [place] [address] Progress Note - Cardiology 01/24/23 1338 MR#: [id number] Acct: [id number] Name: RICHARD ROY Rep #:[id number] : 1945 77 From: Rebecca LOZA PCP: Dr. Luis Caldera MD Status :ADM IN Location: [facility] [id number] Documented by User: DENIA Wilkinson 01/24/23 [...] 82.8 H, Lymph % (Auto) 5.3 L, Cochran % (Auto) 8.9, Eos % (Auto) 1.3, [...] 82.8 H, Lymph % (Auto) 5.3 L, Cochran % (Auto) 8.9, Eos % (Auto) 1.3, [...] by GI. Charges/Coding Visit Charges Inpatient E&M: 83753 Subs Hosp L2 Documented by User: Dr. [...] by Lizzeth Riggs MD> CC: ~ Signed [facility] Work Phone: 1([phone]) 530-397007-13-2023 Miscellaneous Notes* Telephone Encounter - Tamika Grijalva [...] Patient's calling to say patient was at [facility] for rehabilitation after his hospitalization @ [facility] for confusion on 01/04. He was sent by squad to [facility] from [facility] on 01/21 due to episode of decreased [...] stay but it won't be [facility]. Vannessa Jorge, JACEY documented in this encounterFair[facility] Center07-13-2023 Progress note Author Ryan Tinoco [facility] January 24, 2023 1:11pm Note Date/Time January 24, 2023 8:05 am [facility] Medical Records Department [address] [place] [address] Progress Note - Hospitalist 01/24/23 0758 MR#: [id number] Acct: [id number] Name: RICHARD ROY Rep #:[id number] : [...] Antibody < 0.2, Sm (Martinez) Antibody <0.2, PRINTED CIRCUIT BOARD LAYOUT DESIGNER Antibody <0.2, Scl-70 Scleroderma Ab <0.2, Double [...] 82.8 H, Lymph % (Auto) 5.3 L, Cochran % (Auto) 8.9, Eos % (Auto) 1.3, [...] waves. Twelve-lead EKG ordered.. 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 No chest pain or tightness. General: Awake [...] is a 77-year-old gentleman being admitted from [facility] for multiple episodes of syncope and [...] the . His medical care is under [facility]. 01/22: Hemoglobin dropped to 8.9. Patient had [...] there was 2 dropped heartbeat in EKG. property assessment monitor shows heart rate slowed down to [...] that repaired along with aortic valve in [facility]. His finance business partner is Dr. Huston in [facility]. I think this is most probably due to start of the octreotide drip as patient was in sinus normal rhythm at time ofadmission. Octreotide discontinued. Police Cadet consulted. 2D echo ordered. 01/23: Echo states EF 55 to 60%, normal LV systolic function. Trivial MR. Mild diffuse aortic valve calcification. Normal left atrium. Plan: Police Cadet will talk to Dr. Chandra regarding assessment for pacemaker 01/24: Patient has hypernatremia and hyperchloremia. IV fluid D5W started. Patient is still has AV block, P waves but rhythm is irregular. Twelve-lead EKGordered. 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 Dr. Ling will talk to Dr. Chandra. [...] or advanced directive. His is power of securities attorney for health. After discussion of benefits/risks [...] systolic function Charges/Coding Visit Charges Inpatient E&M: 73789 Subs Hosp L3 01/24/23 1311 <Electronically signed by Ryan Tinoco MD> Cosigner Signature (if applicable): CC: ~ Signed [facility] Work Phone: 1(810) 635-900607-12-2023 Progress note Author [facility] Riggs [facility] January 23, 2023 2:45pm Note Date/Time January 23, 2023 10:0 0am [facility] Medical Records Department [address] [place] [address] Progress Note - Cardiology 01/23/2346 MR#: [id number] Acct: [id number] Name: RICHARD ROY Rep #:[id number] : [...] 85.3 H, Lymph % (Auto) 4.8 L, Cochran % (Auto) 7.1, Eos % (Auto) 0.7, [...] 85.3 H, Lymph % (Auto) 4.8 L, Cochran % (Auto) 7.1, Eos % (Auto) 0.7, [...] appears stable. Charges/Coding Visit Charges Inpatient E&M: 87527 Subs Hosp L2 01/23/23 1000 <Electronically signed by Rebecca LOZA> Cosigner Signature (if applicable): 01/23/23 1445 <Electronically signed by Lizzeth Riggs MD> CC: ~ Signed [facility] Work Phone: 1([phone]) 885-707307-12-2023 Procedure [facility] 01-23-2023 Procedure [facility]07-12-2023 Progress note Author Ryan Tinoco [facility] January 23, 2023 9:01am Note Date/Time January 23, 2023 9:01 am [facility] Medical Records Department [address] [place] [address] Progress Note - Hospitalist 01/23/23 0852 MR#: [id number] Acct: [id number] Name: RICHARD ROY Rep #:[id number] : [...] 85.3 H, Lymph % (Auto) 4.8 L, Cochran % (Auto) 7.1, Eos % (Auto) 0.7, [...] every third beat dropped. 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 No chest pain or tightness. General: Oriented [...] is a 77-year-old gentleman being admitted from [facility] for multiple episodes of syncope and [...] the . His medical care is under [facility]. 01/22: Hemoglobin dropped to 8.9. Patient had [...] there was 2 dropped heartbeat in EKG. property assessment monitor shows heart rate slowed down to [...] that repaired along with aortic valve in [facility]. His finance business partner is Dr. Huston in [facility]. I think this is most probably due to start of the octreotide drip as patient was in sinus normal rhythm at time ofadmission. Octreotide discontinued. Police Cadet consulted. 2D echo ordered. 01/23: Echo states EF 55 to 60%, normal LV systolic function. Trivial MR. Mild diffuse aortic valve calcification. Normal left atrium. Plan: Police Cadet will talk to Dr. Chandra regarding assessment [...] or advanced directive. His is power of securities attorney for health. After discussion of benefits/risks [...] and right frontal sinus Electronically Signed: Ravindra Sierar MD at 10:43 EDT Reading Location ID and State: [facility] / [place] , Service support , Chest X-Ray 01/21/23 [...] organ systems), coordination with cardiology and GI software consultant, review of labs and imaging is 50 minutes. Visit Charges Inpatient E&M: 58411 Subs Hosp 01/23/23 0901 <Electronically signed by Ryan Tinoco MD> Cosigner Signature (if applicable): CC: ~ Signed [facility] Work Phone: 1(907) 427-232107-11-2023 Consult note Author Rebecca Leon [facility] January 22, 2023 4:28pm Note Date/Time January 22, 2023 4:07 pm [facility] Medical Records Department [address] [place] [address] Consultation - Cardiology 01/22/23 1605 MR#: [id number] Acct: [id number] Name: RICHARD ROY Rep #:[id number] : [...] hospital stay he [place] [facility]. He presented back to the emergency room yesterday for syncope. The nurses at [facility] had noted that he was unresponsive at [...] last received his metoprolol while in the care home on 01/20/2023. I did speak with , [...] were adjusted at his last hospital stay. [facility] Medical History (Updated 01/22/23 @ [...] Hx of abdominal surgery Social History housing: care home current occupational status: retired Smoking Status: Never [...] Charges/Coding Visit Charges Office Visits / Consults: 12736 IP Consult L3 Objective Data Vital Signs: [...] RDW Coeff of Nathaniel 15.5 H, Plt [id number], MPV 10.1, Immature Gran % (Auto) 3.300 H, Neut % (Auto) 81.9 H, Lymph % (Auto) 5.9 L, Cochran % (Auto) 8.0, Eos % (Auto) 0.7, [...] 81.9 H, Lymph % (Auto) 5.9 L, Cochran % (Auto) 8.0, Eos % (Auto) 0.7,Baso [...] Caldera MD; Dr. Lizzeth Riggs MD~ Signed [facility] Work Phone: 1(783) 549-355807-11-2023 Progress note Author Ryan Tinoco [facility] January 22, 2023 8:38am Note Date/Time January 22, 2023 8:22 am [facility] Medical Records Department [address] [place] [address] Progress Note - Hospitalist 01/22/23818 MR#: [id number] Acct: [id number] Name: RICHARD ROY Rep #:[id number] : [...] 87.8 H, Lymph % (Auto) 7.5 L, Cochran % (Auto) 2.4, Eos % (Auto) 0.0, [...] Clarity Clear, Urine pH 5.0, Ur Specific [place] 1.020, Urine Protein 15 H, Urine Glucose [...] RDW Coeff of Nathaniel 15.5 H, Plt [id number], MPV 10.1, Immature Gran % (Auto) 3.300 H, Neut % (Auto) 81.9 H, Lymph % (Auto) 5.9 L, Cochran % (Auto) 8.0, Eos % (Auto) 0.7, [...] havingirregular heartbeat after midnight, initially A-fib on bus driver/monitor. After that about 5 AM patient started [...] is a 77-year-old gentleman being admitted from [facility] for multiple episodes of syncope and [...] the . His medical care is under [facility]. 01/22: Hemoglobin dropped to 8.9. Patient had [...] there was 2 dropped heartbeat in EKG. property assessment monitor shows heart rate slowed down to [...] that repaired along with aortic valve in [facility]. His finance business partner is Dr. Huston in [facility]. I think this is most probably due to start of the octreotide drip as patient was in sinus normal rhythm at time ofadmission. Octreotide discontinued. Police Cad[employer] consulted. 2D echo ordered. 3. Essential hypertension [...] or advanced directive. His is power of securities attorney for health. After discussion of benefits/risks procedures involved with full code, DNR CC arrest and DNR CC, the patient and his opted for full code. Patient does want artificial life support including intubation, tube feed, ventilator and/chest compression, central venous catheter, vasopressor and DC shock if needed Charges/Coding Visit Charges Inpatient E&M: 87850 Subs Hosp L3 01/22/23 0838 <Electronically signed by Ryan Tinoco MD> Cosigner Signature (if applicable): CC: ~ Signed [facility] Work Phone: 1(864) 650-833407-10-2023 Consult note Author Liu Hackett [facility] January 21, 2023 7:07pm Note Date/Time January 21, 2023 7:04 pm [facility] Medical Records Department [address] [place] [address] Consultation - GI 01/21/23 1902 MR#: [id number] Acct: [id number] Name: RICHARD ROY Rep #:[id number] : 1945 77 From: Liu Hackett DO PCP: Dr. Luis Caldera MD Status :ADM IN Location: ICU CVICU20 2-1 HPI Consult Data Date of Consult: 01/21/23 HPI Narrative Reason for Consultation: GI bleed HPI Narrative: RICHARD ROY, is a 77 M who presents with melena goals from care home. He is on warfarin for history of DVT and atrial fibrillation. [facility]. He was admitted between 01/05 to 01/08/23 for confusion and generalized weakness, stroke was ruled out and was sent to care home there. Started getting confused within the past [...] down to 10.9 from 13.1 on discharge. [facility] Medical History Amputation of right [...] Hx of abdominal surgery Social History housing: care home current occupational status: retired Smoking Status: Never [...] 87.8 H, Lymph % (Auto) 7.5 L, Cochran % (Auto) 2.4, Eos % (Auto) 0.0, [...] Clarity Clear, Urine pH 5.0, Ur Specific [place] 1.020, Urine Protein 15 H, Urine Glucose [...] 6 hours. Charges/Coding Visit Charges Inpatient E&M: 30234 Init Hosp L3 01/21/231906 <Electronically signed by Liu Friend DO> Cosigner Signature (if applicable): CC: Dr. Luis Caldera MD~ Signed [facility] Work Phone: 1(367) 205-750007-10-2023 Discharge summary Author Dandy Sauer [facility] January 21, 2023 5:25pm Note Date/Time January 21, 2023 9:06 am [facility] Medical Records Department [address] [place] [address] Emergency Department Summary 01/21/23 MR#: [id number] Acct: [id number] Name: RICHARD ROY Rep #:[id number] : 1945 77 From: Dandy Sauer MD PCP: Dr. Luis Caldera MD Status :ADM IN Location: ICU CVICU20 2-1 HPI History of Present Illness Chief Complaint: Syncope Informant: spouse/S.O., EMS and SNF Narrative Narrative: Patient sent from [facility] where he has been for several [...] pain, but he denies it right now. [facility] Medical History Amputation of right great toe [...] 09:[address] Dandy Sauer MD) housing: care home current occupational status: retired Smoking Status: Never [...] place including the state. Downgoing toes bilaterally [place] Coma Scale: document GCS findings To Voice [...] 87.8 H Lymph % (Auto) 7.5 L Cochran % (Auto) 2.4 Eos % (Auto) 0.0 [...] Management Discussion w/another healthcare provider: Hospitalist and Requirements Manager (GI) Critical Care Time Critical Care Time: Yes Critical care time (excluding procedures): 30-74 minutes (33 min), Including time spent:, Discussing w/Patient &/or Family/Dietary Cook, Discussing w/Consultants, Arranging Admission or Transfer and Performing Direct Patient Care at Bedside Discharge Plan Dx/Rx/DC Orders Clinical Impression: Acute encephalopathy, Syncope, Supratherapeutic INR, ABLA (acute blood loss anemia), Upper gastrointestinal bleeding, Warfarin-induced coagulopathy Disposition Disposition: [facility] Capacity Capacity Assessment Tool Can the [...] your Primary Care Provider. Call [facility] ([phone]) or report to the closest Emergency Room. Call 911 if necessary. 01/21/23 1725 <Electronically signed by Dandy Sauer MD> Cosigner Signature (if applicable): CC: Dr. Luis Caldera MD ~ Signed [facility] Work Phone: 1(294) 805-658507-10-2023 History and physical note Author Ryan Tinoco [facility] January 21, 2023 12:24pm Note Date/Time January 21, 2023 11:5 8am [facility] Medical Records Department [address] [place] [address] H&P Exam - Hospitalist 01/21/23 1156 MR#: [id number] Acct: [id number] Name: RICHARD ROY Rep #:[id number] : 1945 77 From: Ryan Delgado PCP: Dr. Luis Caldera MD Status :ADM IN Location: ICU CVICU20 2-1 HPI - General General Date of Admission: 01/21/23 Date of Service: 01/21/23 Chief Complaint: Patient was unresponsive in the morning. Had large black tarrystool. HPI Narrative RICHARD ROY, is a 77 M gentleman was brought from [facility] to care home for syncopal episodes and black tarry stool. Prior to that he was admitted between 01/05 to 01/08/23 for confusion and generalized weakness, stroke was ruledout and was sent to care home there. Patient is not a good historian. As per the nursing report, patient had multiple short syncopal episodes in the morning after he had a large black tarry stool. Patient had been having dark stool for last couple days in care home. Patient does not remember himself from dementia/depression. [...] further admitted in in the context of [facility] Medical History Amputation of right [...] Hx of abdominal surgery Social History housing: care home current occupational status: retired Smoking Status: Never [...] 87.8 H, Lymph % (Auto) 7.5 L, Cochran % (Auto) 2.4, Eos % (Auto) 0.0, [...] Clarity Clear, Urine pH 5.0, Ur Specific [place] 1.020, Urine Protein 15 H, Urine Glucose [...] is a 77-year-old gentleman being admitted from [facility] for multiple episodes of syncope and [...] the . His medical care is under [facility]. 2 Syncopal episode most likely due to [...] or advanced directive. His is power of securities attorney for health. After discussion of benefits/risks procedures involved with full code, DNR CC arrest and DNR CC, the patient and his opted for full code. Patient does want artificial life support including intubation, tube feed, ventilator and/chest compression, central venous catheter, vasopressor and DC shock if needed Total time spent in [id number] encounter in discussion of advanced directive 17 minutes. Microbiology Past 72 Hours 01/21/23 09:15 Stool Stool Occult Blood (KLAUS) - Final Occult Blood Positive Laboratory Results 01/21/23 08:40: WBC 22.4 H, RBC 3.96 L, Hgb 10.7 L, Hct 34.3 L, MCV 86.6, MCH 27.0, MCHC 31.2 L, RDW Std Deviation 46.6 H, RDW Coeff of Nathnaiel 14.7 H, Plt Count 389, MPV 10.7, Immature Gran % (Auto) 2.000 H, Neut % (Auto) 87.8 H, Lymph % (Auto) 7.5 L, Cochran % (Auto) 2.4, Eos % (Auto) 0.0, [...] Clarity Clear, Urine pH 5.0, Ur Specific [place] 1.020, Urine Protein 15 H, Urine Glucose (UA) 100 H, Urine Ketones 15 H, Urine Occult Blood Negative, Urine Nitrite Negative, Urine Bilirubin 1 H, Urine Urobilinogen Normal, Ur Leukocyte Esterase Negative, Urine RBC 0 SEEN, Urine WBC 0-5 SEEN, Ur Squamous Epith Cells 0-5 SEEN, Urine Bacteria 0 SEEN, Urine Mucus 0 SEEN Charges/Coding Visit Charges Inpatient E&M: 79882 Init Hosp L3 Procedures Hospitalists Procedures: 07626 Advncd Care Plan 30 Min 01/21/231222 <Electronically [...] MD; Dr. Ryan Tinoco MD ~* Signed [facility] Work Phone: 1(668) 873-132606-23-2023 Miscellaneous Notes* Telephone Encounter - Amada Cohn [...] again recommend ER evaluation. documented [facility]06[facility] Miscellaneous Notes* Telephone Encounter - [...] 01/04. Vannessa Jorge RN documented in this encounterFair[facility]06-22-2023 History of Present illness Narrative* [...] PARTIALLY MET, improved 8 to 9 reps Lucas in home exercise program including cardiovascular exercise. [...] 5 Justina Escoto PT documented in this [facility]Fair[facility]06-19-2023 History of Present illness Narrative* [...] 42 ALISIA Burch PT documented in this encounterFair[facility]06-15-2023 History of Present illness Narrative* [...] 40 ALISIA Burch PT documented in this [facility]06-12-2023 History of Present illness Narrative* [...] 40 Justina Escoto PT documented in this [facility]06-05-2023 History of Present illness Narrative* [...] 40 Justina Escoto PT documented in this encounterFair[facility]06-02-2023 History of Present illness Narrative* [...] 40 Justina Escoto PT documented in this encounterFair[facility]05-31-2023 History of Present illness Narrative* [...] 40 Justina Escoto PT documented in this encounter[facility]05-09-2023 Miscellaneous Notes* Telephone Encounter - [...] to the pharmacy. Please call patient at: [phone]. Nola Lockhart documented in this encounterFairfield [facility] Center05-08-2023 Miscellaneous Notes* Telephone Encounter - [...] and result): 09/24/2022 2.5 documented in this encounterFair[facility] Center04-10-2023 History of Present illness Narrative* [...] Patient, Diabetic Foot Care documented in this encounterFair[facility] Center04-10-2023 Instructions* Patient Instructions* Zachary Obregon [...] (or decreased sensation in your feet) a conservator artifacts should always cut your toenails. Be Careful [...] Go to your health care provider or conservator artifacts to treat these conditions. documented in this encounterFair[facility] Center03-14-2023 Miscellaneous Notes* Telephone Encounter - [...] Information or narrative: no documented in this encounterFairfield Medical Center02-24-2023 Miscellaneous Notes* Telephone Encounter - Suzanne Connelly RN - 09/07/2022 1:11 PM EST Call to patient. Provided number to schedule- [phone]. Offered to transfer patient to schedulebut patient declined to schedule stating he could call later. PAOLA Potter, RN September 07, 2022 1:11 PM * Telephone Encounter - Jojo Kaur MD - 09/07/2022 11:39 AM EST Suzanne please let patient know how to proceed with driving evaluation I already put the order in computer documented in this encounterFairfield [facility] Center02-24-2023 History of Present illness Narrative* [...] evaluation of folllow up after hospitalization in [facility]. he was admitted because of [...] Since covid hit they went to [facility] and was staying in the house [...] Benign-Dr. 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 ([facility]) 05/25/2018 History of transfusion Hyperlipidemia LDL goal < 100 04/01/2012 NSTEMI (non-ST elevated myocardial infarction) ([facility]) Pulmonary embolus, right ([facility]) 09/25/2013 Status post aortic valve repair 2005 Thoracic aneurysm without mention of rupture Type 2 diabetes mellitus with stage 3 chronic kidney disease, with long-term current use of insulin([facility]) 06/20/2016 Vitamin D deficiency 01/03/2022 PSH: PAST SURGICAL HISTORY Procedure Laterality Date ABDOMINAL SURGERY HX AMPUTATION METATARSAL+TOE,SINGLE Right 05/25/2018 with delayed closure on 05/28/18. Dr. Obregon at [facility] 10/10/2021 repeat in 3 years [...] one time a week. blood sugar diagnostic (Space Ape ULTRA TEST) test strip Test blood sugar(s) [...] gait ,unsteady Cannot tandem Jojo Kaur M.D. [facility] [place] Department of Neurology Total time in minutes [...] lights on at night. documented in this encounterFairfield Medical Center02-14-2023 Miscellaneous Notes* Telephone Encounter - [...] no Tania Heller LPN documented in this encounterFairfield [facility] Center02-02-2023 Miscellaneous Notes* Telephone Encounter - [...] notify patient. Grecia Bustillo documented in this encounterFairfield [facility] Center01-31-2023 Miscellaneous Notes* Telephone Encounter - [...] Information or narrative: no documented in this encounterFairfield Medical Center01-26-2023 History of Present illness Narrative* [...] 12 months ago. Going to schedule appointment [facility] [place]. 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 Asymtpomatic still on medical management. Has completed his home PT/OT. Echo and stress test at [facility] were negative/normal. Has follow up with Dr. Huston on 12/03. questioning if they should be seen sooner. BP well controlled with current regimen <130/80. BPH: With use of flomax, patient is getting up once at night to urinate. Has weak stream, but denies straining, incomplete emptying, dysuria, hematuria, incontinence. Followed up with ENT in [place] for chronic frontal sinusitis on CT/MRI going back to February. Told this did not require treatment. F/u PRN. Denies sinus pressure/pain/congestion. Past medical history, appointments, medications, allergies reviewed. Previous Medical History PAST MEDICAL HISTORY Diagnosis Date BPH (benign prostatic hyperplasia) Cholelithiasis 09/25/2013 Chronic neutrophilia Benign-Dr. Cazares Diabetes mellitus with neurological manifestation ([facility]) 09/08/2010 Diabetic retinopathy of right eye ([facility]) mild Diverticulosis of colon (without mention of [...] kidney disease, with long-term current use of insulin([facility]) 06/20/2016 Vitamin D deficiency 01/03/2022 Previous Surgical History PAST SURGICAL HISTORY Procedure Laterality Date ABDOMINAL SURGERY HX AMPUTATION METATARSAL+TOE,SINGLE Right 05/25/2018 with delayed closure on 05/28/18. Dr. Obregon at [facility] 10/10/2021 repeat in 3 years [...] Abs Lymph 1.00 - 4.00 k/uL 1.81 Cochran% % 6.9 Abs Cochran <0.87 k/uL 0.86 Eosin% % 3.1 Abs [...] neuropathy, with long-term current use of insulin ([facility]) -ICD9: 250.60, 357.2, V58.67, ICD10: E11.40, Z79.4 [...] regimen. 3. NSTEMI (non-ST elevated myocardial infarction) ([facility]) - ICD9: 410.70, ICD10: I21.4 Patient asymptomatic [...] reigmen. Abdulaziz Caldera MD documented in this encounterFairfield Medical Center01-23-2023 Miscellaneous Notes* Telephone Encounter - [...] pt. Mila Castro LPN documented in this encounterFairfield Medical Center01-23-2023 History of Present illness Narrative* [...] or electronic medical record. documented in this encounterFairfield Medical Center01-17-2023 Miscellaneous Notes* Telephone Encounter - [...] last OV. * Telephone Encounter - Rebecca Estbean LPN - 07/31/2022 11:11 AM EST Last [...] 2022. Rebecca Esteban LPN documented in this encounterFairfield Medical Center01-13-2023 Miscellaneous Notes* Telephone Encounter - Meghana Burgess - 07/27/2022 9:55 AM EST MyChart message not read as of 07/27/2022. Called and spoke with patient. Appt rescheduled to 09/07/2022 at 11:00 AM Meghana Burgess * Telephone Encounter - Meghana Aditya - 07/05/2022 4:08 PM EST Due to change in provider's schedule, appt on 08/21/2022 needs rescheduled. Patient notified via [employer] message on 07/05/2022. Meghana Burgess documented in this encounterFairfield Medical Center01-12-2023 Miscellaneous Notes* Telephone Encounter - Abdulaziz Caldera MD - 07/26/2022 3:09 PM EST Thanks. * Telephone Encounter - Ann Castillo RN - 07/26/2022 3:04 PM EST Darlyn, a nurse with [facility] calling to state she has discharged pt [facility]. Pt is doing really well. No call back needed. Thank you. documented in this encounterFairfield Medical Center01-11-2023 Miscellaneous Notes* Telephone Encounter - Suzanne Lino RN - 07/25/2022 1:42 PM EST Last Office Visit: 07/12/2022 Future Office Visit: 08/09/2022 Requested Prescriptions Pending Prescriptions Disp Refills amLODIPine (NORVASC) 2.5 mg tablet 30 tablet 5 Sig: Take 1 tablet by mouth once daily. Date of Last Labs: 03/02/2022 documented in this encounterFairfield Medical Center01-03-2023 Miscellaneous Notes* Telephone Encounter - Abdulaziz Caldera MD - 07/17/2022 12:58 PM EST Reviewed and agree. * Telephone Encounter - Halima Diaz RN - 07/17/2022 12:51 PM EST Maverick PT calling from [facility] to report plan of care for patient and PT will visit patient 2 times a week for 3 weeks. PT will work with patient on functional mobility training. Halima Diaz RN documented in this encounterFairfield Medical Center01-03-2023 Miscellaneous Notes* Telephone Encounter - Abdulaziz Caldera MD - 07/17/2022 11:18 AM EST Reviewed. * Telephone Encounter - Eva Schmid LPN - 07/17/2022 11:12 AM EST Barbi from [facility] calling with OT plan of care, one time visit only, patient denies any further OT needs. No call back needed. documented in this encounterFairfield Medical Center12-30-2022 Miscellaneous Notes* Telephone Encounter - Ewa Andino Ma - 07/13/2022 11:30 AM EST Left detailed message on confidential line Ewa Andino Ma * Telephone Encounter - Abdulaziz Caldera MD - 07/13/2022 11:01 AM EST agree * Telephone Encounter - Ann Castillo RN - 07/13/2022 10:00 AM EST Chiki, a nurse with [facility] calling with [facility] Plan of Care for patient: Patient will be seen 1 time per week for 4 weeks for BP monitoring. No call back needed if provider agreeable. Thank you. documented in this [facility]12-29-2022 Miscellaneous Notes* Telephone Encounter - Ewa Andino Ma - 07/12/2022 10:53 AM EST Karly was notified Ewa Andino Ma * Telephone Encounter - Abdulaziz Caldera MD - 07/12/2022 10:47 AM EST Agree and will follow * Telephone Encounter - Marcella Alvarez RN - 07/12/2022 10:07 AM EST Karly with [facility] called and reports Pt was discharged yesterday and they received a referral for PT/OT/SN. They are going to do their start of care tomorrow, and she was asking if the provider would be willing to follow. documented in this [facility]12-26-2022 Miscellaneous Notes* Telephone Encounter - Suzanne Lino RN - 07/09/2022 11:46 AM EST Last Office Visit: 04/16/2022 Future Office Visit: 09/17/2022 Requested Prescriptions Pending Prescriptions Disp Refills dulaglutide (TRULICITY) 1.5 mg/0.5 mL pen injector 12 Each 3 Sig: Inject 1.5 mg subcutaneously one time a week. Inject once per week. Discard Pen After Date of Last Labs: 03/02/2022 documented in this [facility]12-12-2022 Miscellaneous Notes* Telephone Encounter - Tania [...] patient. Tania Heller LPN documented in this encounterFairfield Medical Center11-02-2022 Miscellaneous Notes* Telephone Encounter - Mila Casrto LPN - 05/16/2022 10:29 AM EDT Patient [...] you. Mila Castro LPN documented in this encounterFairfield Medical Center10-04-2022 History of Present illness Narrative* [...] evaluation of folllow up after hospitalization in [facility]. he was admitted because of [...] Since covid hit they went to [facility] and was staying in the house [...] (HCC) 09/08/2010 Diabetic retinopathy of right eye ([facility]) mild Diverticulosis of colon (without mention of [...] delayed closure on 05/28/18. Dr. Obregon at [facility] 10/10/2021 repeat in 3 years [...] week. Discard Pen After blood sugar diagnostic ([employer] ULTRA TEST) test strip Test blood sugar(s) [...] gait ,unsteady Cannot tandem Jojo Kaur M.D. [facility] [place] Department of Neurology Total time in minutes [...] lights on at night. documented in this encounterFairfield Medical Center10-04-2022 Miscellaneous Notes* Telephone Encounter - Abdulaziz Caldera MD - 04/17/2022 11:24 AM EDT Reviewed. * Telephone Encounter - MERYL Zamudio - 04/17/2022 11:03 AM EDT Behavioral Health Social Work Progress Note Patient identified for [facility] from: PCP Reason for referral: Resources Behavioral Health Resources: Psychology - talk therapy [facility] encounter type: Telephone Encounter Attempts to Outreach: 1 attempt Referral made: Psychology - External Psychology-External referral type: Therapy Reason for external referral: Wait times at [facility] too long Final Disposition: Resources given Patient Discharged?: Yes Patient reported that caregiver was able to meet their needs today?: Yes SW placed a phone call to patient at the request of the PCP. Pt reported he is looking for talk therapy referrals at this time. SW provided the following referrals via phone: [facility] [address], [address], [facility] [address] *[facility]ing [facility] [address] [address] *counseling [facility] [address], [address] [place] [address] *counseling [facility] [address] [place] [address] FEDERICO Zamudio April 17, 2022 documented in this encounterFairfield Medical Center10-03-2022 History of Present illness Narrative* [...] Benign-Dr. 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 Dr. Obregon at [facility] 10/10/2021 repeat in 3 years [...] week. Discard Pen After blood sugar diagnostic (Space Ape ULTRA TEST) test strip Test blood sugar(s) [...] Abs Lymph 1.00 - 4.00 k/uL 1.81 Cochran% % 6.9 Abs Cochran <0.87 k/uL 0.86 Eosin% % 3.1 Abs [...] regimen. Abdulaziz Caldera MD documented in this encounterFairfield [facility] Center10-03-2022 Evaluation note* Diagnosis Type 2 [...] tract symptoms (LUTS) documented in this encounter [facility] History of Present illness Narrative* Roselia Madrigal, MARYLU.CASE MANAGEMENT SOCIAL WORKER - 04/06/2022 9:40 AM EDT 04/06/2022 Patient [...] Benign-Dr. 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 FOR CHOLESTEROL. blood sugar diagnostic (Space [employer]pe ULTRA TEST) test strip Test blood sugar(s) [...] which included preparing to see the patient, [id number] patient care, completing clinical documentation, obtaining and/or reviewing separately obtained history, performing a medically appropriate examination, and counseling and educating the patient/family/caregiver. documented in this encounterFair[facility] Center09-21-2022 Miscellaneous Notes* Telephone Encounter - [...] EDT ----- Please forward INR to doctor computational linguist Roselia Madrigal APRN.CASE MANAGEMENT SOCIAL WORKER documented in this encounterFairfield Medical Center09-16-2022 History of Present illness Narrative* [...] polyneuropathy associated with type 2 diabetes mellitus ([facility]) Plan: Patient was seen and evaluated. Nails [...] Care Merlene Martinez LPN documented in this encounterFairfield Medical Center09-16-2022 Instructions* Patient Instructions* Zachary Obregon [...] (or decreased sensation in your feet) a conservator artifacts should always cut your toenails. Be Careful [...] Go to your health care provider or conservator artifacts to treat these conditions. documented in this encounterFairfield Medical Center09-09-2022 History of Present illness Narrative* [...] 01/12/22 through 03/15/22 Goals updated on 03/23/2022. Lucas in home exercise program. (Met) Patient will [...] 42 David Poon PT documented in this encounterFairfield Medical Center09-08-2022 Miscellaneous Notes* Telephone Encounter - Maggy Ibarra Pss - 03/22/2022 1:49 PM EDT Pharmacy verified in [facility] Patient has been identified by name [...] advise. Maggy Ibarra Pss documented in this encounterFairfield Medical Center09-02-2022 History of Present illness Narrative* [...] 40 ALISIA Whiting PT documented in this encounterFairfield [facility] Center08-29-2022 History of Present illness Narrative* [...] Treatment Time Minutes (timed/untimed): 41 Karen Weber, CERAMIC TILER David Poon PT documented in this encounterFairfield Medical Center08-26-2022 Miscellaneous Notes* Addendum Note - David Poon PT - 03/09/2022 1:18 PM EDTAddended by: DAVID POON on: 03/09/2022 01:18 PM Modules accepted: Orders documented in this encounterFairfield Medical Center08-26-2022 History of Present illness Narrative* [...] 01/12/22 through 03/15/22 Goals updated on 03/09/2022. Lucas in home exercise program. (Met) Patient will [...] Patient to be seen for Therapeutic exercise (65426);Neuromuscular re-education (78718);Gait Training (26103);Patient/Family/Caregiver Education PLAN FOR NEXT VISIT: Add bridging [...] 42 David Poon PT documented in this encounterFairfield Medical Center08-24-2022 Miscellaneous Notes* Telephone Encounter - [...] testing [place] Ma Cma documented in this encounterFairfield Medical Center08-24-2022 Instructions* Patient Instructions* Abdulaziz Caldera MD - 03/07/2022 11:45 AM EDT Please take 2,000 units of vitamin D daily over the counter. documented in this encounterFairfield Medical Center08-24-2022 History of Present illness Narrative* Abdulaziz Caldera MD - 03/07/2022 11:19 AM EDT Chief Complaint Patient presents with: 6 Month Exam ER F/U HPI Richard Roy is a 76 year old male who presents here today for ER Follow Up.. Patient evaluated at [facility] ED on 03/02 for complaint of [...] delayed closure on 05/28/18. Dr. Obregon at [facility] COLONOSCOPY 10/10/2021 repeat in 3 years [...] ONCE DAILY. FOR CHOLESTEROL. blood sugar diagnostic (Gen110UCH ULTRA TEST) test strip Test blood sugar(s) [...] Abs Lymph 1.00 - 4.00 k/uL 1.81 Cochran% % 6.9 Abs Cochran <0.87 k/uL 0.86 Eosin% % 3.1 Abs [...] PANEL Abdulaziz Caldera MD documented in this encounterFairfield Medical Center08-22-2022 History of Present illness Narrative* [...] 40 David Poon PT documented in this encounterFairfield Medical Center08-19-2022 History of Present illness Narrative* [...] 45 David Poon PT documented in this encounterFairfield Medical Center08-15-2022 History of Present illness Narrative* [...] 45 David Poon PT documented in this encounterFairfield Medical Center08-12-2022 History of Present illness Narrative* [...] Treatment Time Minutes (timed/untimed): 43 Karen Weber, CERAMIC TILER David Poon PT documented in this encounterFairfield Medical Center08-03-2022 History of Present illness Narrative* [...] 47 David Poon PT documented in this encounterFairfield Medical Center07-29-2022 History of Present illness Narrative* [...] 01/12/22 through 03/15/22 Goals updated on 02/09/2022. Lucas in home exercise program. (Met) Patient will [...] Patient to be seen for Therapeutic exercise (38888);Neuromuscular re-education (62029);Gait Training (46258);Patient/Family/Caregiver Education PLAN FOR NEXT VISIT: Continue to [...] 44 David Poon PT documented in this encounterFairfield Medical Center07-26-2022 Miscellaneous Notes* Telephone Encounter - [...] pharmacy. No need to notify patient. Nola Lcokhart documented in this encounterFairfield Medical Center07-22-2022 History of Present illness Narrative* [...] 43 ALISIA Whiting PT documented in this encounterFairfield Medical Center07-21-2022 Miscellaneous Notes* Telephone Encounter - [...] patient. Eulalia Sedinger [employer] documented in this encounterFairfield Medical Center07-19-2022 History of Present illness Narrative* [...] 43 ALISIA Whiting PT documented in this encounterFairfield Medical Center07-12-2022 Miscellaneous Notes* Telephone Encounter - [...] you. Rebecca Gonzales RN documented in this encounterFairfield Medical Center07-12-2022 History of Present illness Narrative* [...] Weber, ALISIA Byrd PT documented in this encounterFairfield Medical Center07-08-2022 Miscellaneous Notes* Telephone Encounter - [...] on driving. Please advise. documented in this encounterFairfield Medical Center07-01-2022 History of Present illness Narrative* [...] of Care: created on 01/12/22 through 03/15/22 Lucas in home exercise program. Patient will demonstrate [...] Planned: 16 Planned Treatment Interventions: Therapeutic exercise (94972);Neuromuscular re- education (33612);Gait Training (96159);Patient/Family/Caregiver Education PLAN FOR NEXT VISIT: Review HEP [...] 42 David Poon PT documented in this encounterFairfield Medical Center07-01-2022 Miscellaneous Notes* Telephone Encounter - [...] Pending consult. Please advise documented in this encounterFairfield Medical Center06-29-2022 Miscellaneous Notes* Telephone Encounter - [...] his syncope/collapse. Thank you! documented in this encounterFairfield Medical Center06-29-2022 Miscellaneous Notes* Result QuickNote - Justina Monique APRN.CNP - 01/10/2022 11:33 AM EDT Please call patient and notify him. Echocardiogram is stable. Valve replacement function is stable.No cardiac structure/function changes to explain his syncope/collapse. Thank you! documented in this encounterFairfield Medical Center06-24-2022 History of Present illness Narrative* [...] shared medical record. REFERRING PHYSICIAN: Abdulaziz Caldera [id number] [facility] [id number] Accompanied by: Spouse ASSESSMENT: 76 year old [...] evaluation of folllow up after hospitalization in [facility]. he was admitted because of [...] Since covid hit they went to [facility] and was staying in the house [...] Benign-Dr. 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 Dr. Obregon at [facility] COLONOSCOPY 10/10/2021 repeat in 3 years [...] by mouth once daily. blood sugar diagnostic ([employer] LimitedTOUCH ULTRA TEST) test strip Test blood sugar(s) [...] gait ,unsteady Cannot tandem Jojo Kaur M.D. [facility] [place] Department of Neurology January 05, 2022 Total [...] lights on at night. documented in this encounterFairfield Medical Center06-21-2022 Miscellaneous Notes* Telephone Encounter - Justina Garcia LPN - 01/02/2022 8:06 AM EDT I spoke to and informed him of Justina's response to lipid panel results. Patient voiced understanding. Justina Garcia LPN * Telephone Encounter - Justina Garcia LPN - 01/02/2022 7:43 AM EDT ----- Message from Justina Monique APRN.CASE MANAGEMENT SOCIAL WORKER sent at 01/02/2022 7:38 AM EDT ----- Please call patient and notify him cholesterol has good control. Thank you! documented in this encounterFairfield Medical Center06-20-2022 History of Present illness Narrative* Abdulaziz Caldera MD - 01/01/2022 10:20 AM EDT Chief Complaint Patient presents with: Hospital Follow Up: [facility] discharged 12/29/21 HPI Richard Roy is a 76 year old male who presents here today for Hospital Discharge Follow up. Accompanied today by his . Patient admitted to [facility] from 12/27 to 12/29 after presenting to the [facility] ED after being found slumped over his tractor at home earlier in the afteernoon. Had been working outside for unknown period of time. Had only eaten cookies and milk that day. Heat index over 100. Back to baseline at the time of evaluation by hospitalist at [facility]. Found to have leukocytosis at [facility] and elevated lactic acid level. Noted [...] echo since it was not completed at [facility]. No other changes to regimen. Patient [...] Benign-Dr. 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 Dr. Obregon at [facility] COLONOSCOPY 10/10/2021 repeat in 3 years [...] by mouth once daily. blood sugar diagnostic (Space Ape ULTRA TEST) test strip Test blood sugar(s) [...] SCRN Abdulaziz Caldera MD documented in this encounterFairfield Medical Center06-20-2022 Instructions* Patient Instructions* Justina Monique APRN.CASE MANAGEMENT SOCIAL WORKER - 01/01/2022 9:05 AM EDT High Blood [...] risk for high blood pressure. Developed by [employer]. Published by [employer]. Copyright 2014 [employer] and/or one of its subsidiaries. All rights reserved. documented in this encounterFairfield Medical Center06-20-2022 History of Present illness Narrative* [...] delayed closure on 05/28/18. Dr. Obregon at [facility] COLONOSCOPY 10/10/2021 repeat in 3 years [...] daily. 90 tablet 3 blood sugar diagnostic (Space Ape ULTRA TEST) test strip Test blood sugar(s) [...] injection (DEFINITY) INTRAVENOUS DIRECTED PRN Justina Monique, PERFORATOR TYPIST.CASE MANAGEMENT SOCIAL WORKER sodium chloride 0.9 % (flush) 10 mL (BD POSIFLUSH) 10 mL INTRAVENOUS DIRECTED PRN Justina Monique, PERFORATOR TYPIST.CASE MANAGEMENT SOCIAL WORKER Review of Systems Constitutional: Negative for chills, [...] MRI of his head CAD -MILD on [facility] 2004 -stress testing 2013 with [...] 01, 2022, 8:57 AM documented in this encounterFairfield Medical Center06-19-2022 Note. MICRO - Microbiology PROCEDURE: Blood Culture (bacterial) [*1] SOURCE: Blood BODY SITE: COLLECTED DATE/TIME: 12/27/2021 17:43 EDT RECEIVED DATE/TIME: 12/28/2021 14:37 EDT START DATE/TIME: 12/28/2021 14:37 EDT FREE TEXT SOURCE: FINAL REPORTS Final Report [] Verified Date/Time/Personnel: 12/31/2021 07:29 EDT Staphylococcus epidermidis Isolated from anaerobe bottle only. Refer to previous culture for susceptibility. [id number] PRELIMINARY REPORTS Preliminary Report [] Verified Date/Time/Personnel: 12/30/2021 09:39 EDT Staphylococcus epidermidis Isolated from anaerobe bottle only. Refer to previous culture for susceptibility. [id number] Preliminary Report [] Verified Date/Time/Personnel: 12/28/2021 15:59 EDT Culture has been received in lab and is no growth to date. Routine cultures are held for 5 days. STAINS GSANA [] Verified Date/Time/Personnel: 12/29/2021 14:08 EDT Gram Positive Cocci in clusters Performing Locations *1: This test was performed at: [facility], [address] [place] [address], [id number]- , Formerly [facility] ([place])12-31-2021 Note. MICRO - Microbiology PROCEDURE: Blood Culture [...] Locations *1: This test was performed at: [facility], [address] [place] [address], [id number]- , Formerly [facility] ([place])12-27-2021 SARS-CoV-2 (COVID-19) RNA ANGELY+probe Ql (Nph)Positive 2 *ABN* (12/27/21 5:43 PM)AO Auto Urine SSComment on above:Result Comment: positive covid cvrb s. tona Evaluation + Plan note Diagnostic Tests Pending * Urinalysis 12/27/21 * Blood Culture (bacterial) 12/27/21 * Blood Culture (bacterial) 12/27/21 [facility]ordin 06-02-2022 History of Present illness Narrative* Abdulaziz Caldera MD - 12/14/2021 3:13 PM EDT Chief Complaint Patient presents with: Covid Follow Up HPI Richard Roy is a 76 year old male who presents here today for Above Complaints.. Patient positive for COVID in the [facility] ER last week on 12/06. Spoke [...] Benign-Dr. Cazares Diabetes mellitus with neurological manifestation ([facility]) 09/08/2010 Diverticulosis of colon (without mention of [...] delayed closure on 05/28/18. Dr. Obregon at [facility] COLONOSCOPY 10/10/2021 repeat in 3 years [...] by mouth once daily. blood sugar diagnostic (Space Ape ULTRA TEST) test strip Test blood sugar(s) [...] detail. Abdulaziz Caldera MD documented in this encounterFairfield Medical Center05-27-2022 History of Present illness Narrative* [...] today for Above Complaints.. Patient evaluated at [facility] ER on 12/06 for complaint of generalized weakness, cough, and feeling off balance and developed cough which started on 12/04. Denied other COVID symptoms at that time. Lab workup in the ER was unremarkable aside from positive COVID test and INR of 3.3. UA unremarkable. CXR showed some ill defined densities in RLL which was likely 2/2 COVID infection. [place] to be well enough and discharged home [...] Benign-Dr. 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 Dr. Obregon at [facility] COLONOSCOPY 10/10/2021 repeat in 3 years [...] by mouth once daily. blood sugar diagnostic (Space Ape ULTRA TEST) test strip Test blood sugar(s) [...] these interactions. [facility] Since his symptoms are mild, he would prefer to rest at home. Discussed risks and benefits of treatment and that he is high risk for severe infection. Red flags for re-assessment reviewed with patient in detail. I spent a total of 25 minutes on the date of the service which included preparing to see the patient, [id number] patient care, completing clinical documentation, obtaining and/or reviewing separately obtained history, performing a medically appropriate examination, counseling and educating the pat ient/family/caregiver and ordering medications, tests, or procedures. Abdulaziz Caldera MD documented in this encounterFairfield Medical Center05-27-2022 Miscellaneous Notes* Telephone Encounter - [...] with one of our providers or with [facility] care online. * Telephone Encounter - David Martinez Pss - 12/08/2021 2:16 PM EDT Patient called stating he was at [facility] ER on 12/06. Tested positive for covid. Patient was informed tocontact the office within 5 days to inform. Please advise patient when he can be seen in office. documented in this encounterFairfield Medical Center05-09-2022 Miscellaneous Notes* Telephone Encounter - Eulalia Gaston [facility] - 11/20/2021 9:49 AM EDT Patient has been identified by name and date of : Yes Pending Prescriptions Disp Refills METFORMIN ER 500 MG 24 HR TABLET,EXTENDED RELEASE Sig: Take 1 tablet by mouth daily with breakfast. NUHA: No OMAR-09/06/21 Labs-08/30/21 NOV-03/07/22 RX INSTRUCTIONS: Patient aware RX will be sent to pharmacy. No need to notify patient. Eulalia Alek [facility] documented in this encounterFairfield Medical Center04-11-2022 Instructions* Patient Instructions* Marcella Park PA-C - 10/23/2021 1:25 PM EDT -Recommend daily fiber supplement and plenty of fluids The following instructions are important for you related to your office visit today with the [facility] General Surgeons. INSTRUCTIONS FOR DIVERTICULA [...] you should contact our office immediately @ [phone] and ask to be transferred to the General Surgery department. The following instructions are important for you related to your office visit today with the [facility] General Surgeons. INSTRUCTIONS FOLLOWING A [...] you should contact our office immediately @ [phone] and ask to be transferred to the General Surgery department. documented in this encounterFairfield Medical Center04-11-2022 History of Present illness Narrative* Marcella Park PA-C - 10/23/2021 1:09 PM EDT FOLLOW UP VISIT - ENDOSCOPY NAME: Richard Roy [facility] NO.: [id number] DATE OF SERVICE: 10/23/2021 : 1945 REFERRING [...] which included preparing to see the patient, [id number] patient care, completing clinical documentation, obtaining and/or reviewing separately obtained history, counseling and educating the patient/family/caregiver, communicating with other HCPs (not separately reported), independently interpreting results (not separately reported) and communicating results to the patient/family/caregiver. Marcella Park PA-C documented in this encounterFairfield Medical Center03-29-2022 Nurse Note* Caroline Larkin RN [...] answered. Caroline Larkin RN documented in this encounterFairfield Medical Center03-29-2022 History and physical note * [...] Benign-Dr. 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 Dr. Obregon at [facility] COLONOSCOPY FLX DX W/COLLJ SPEC WHEN [...] by mouth once daily. blood sugar diagnostic ([employer] LimitedTOUCH ULTRA TEST) test strip Test blood sugar(s) [...] entered by the nurse and reviewed by va Nursing Notes: Cortney Starr LPN 08/16/2021 8:38 [...] patient was offered a surgery/procedure at a [facility] facility. I have counseled the [...] diagnosis) Marcella Park PA-C documented in this encounterFairfield Medical Center03-24-2022 Miscellaneous Notes* Telephone Encounter - [...] notify patient. Violette Lockhart documented in this encounterFairfield Medical Center03-23-2022 Miscellaneous Notes* Telephone Encounter - [...] advise, Halima Diaz RN documented in this encounterFairfield Medical Center02-02-2022 Miscellaneous Notes* Telephone Encounter - Garland Vicente - 08/16/2021 9:36 AM EST 10-10-2021 Colon [facility] documented in this encounterFairfield Medical Center01-13-2022 NoteHNO ID: [id number] Author: REY Burt Service: Radiology Author Type: Brick Shader Type: Progress Notes Filed: 07/27/2021 10:50 AM [...] Roy DATE: July 27, 2021 TIME: 10:49 [id number] History of Past illness Narrative* Problem Noted [...] of this encounter (statuses as of 10/04/2021) [facility] of Past illness Narrative* [...] of this encounter (statuses as of 10/05/2021) [facility] of Past illness Narrative* [...] of this encounter (statuses as of 10/11/2021) [facility] of Past illness Narrative* [...] of this encounter (statuses as of 10/16/2021) [facility] of Past illness Narrative* [...] of this encounter (statuses as of 10/27/2021) [facility] of Past illness Narrative* [...] of this encounter (statuses as of 11/20/2021) [facility] of Past illness Narrative* [...] of this encounter (statuses as of 12/12/2021) [facility] of Past illness Narrative* [...] of this encounter (statuses as of 12/13/2021) [facility] of Past illness Narrative* [...] of this encounter (statuses as of 12/14/2021) [facility] of Past illness Narrative* [...] of this encounter (statuses as of 01/01/2022) [facility] [facility] Narrative* [...] of this encounter (statuses as of 01/02/2022) [facility] Narrative* [...] of this encounter (statuses as of 01/02/2022) [facility]* [...] of this encounter (statuses as of 01/06/2022) [facility]* [...] of this encounter (statuses as of 01/10/2022) [facility]* [...] of this encounter (statuses as of 01/11/2022) [facility]* [...] of this encounter (statuses as of 01/12/2022) [facility]* [...] of this encounter (statuses as of 01/12/2022) [facility]* [...] of this encounter (statuses as of 01/19/2022) [facility]* [...] of this encounter (statuses as of 01/23/2022) [facility]* [...] of this encounter (statuses as of 01/25/2022) [facility]* [...] of this encounter (statuses as of 01/30/2022) [facility]* [...] of this encounter (statuses as of 02/01/2022) [facility]* [...] of this encounter (statuses as of 02/02/2022) [facility]* [...] of this encounter (statuses as of 02/02/2022) [facility]* [...] of this encounter (statuses as of 02/06/2022) [facility]* [...] of this encounter (statuses as of 02/09/2022) [facility]* [...] of this encounter (statuses as of 02/14/2022) [facility]* [...] of this encounter (statuses as of 02/26/2022) [facility]* [...] of this encounter (statuses as of 03/02/2022) [facility]* [...] of this encounter (statuses as of 03/05/2022) [facility]* [...] of this encounter (statuses as of 03/07/2022) [facility]* [...] of this encounter (statuses as of 03/08/2022) [facility]* [...] of this encounter (statuses as of 03/09/2022) [facility]* [...] of this encounter (statuses as of 03/12/2022) [facility]* [...] of this encounter (statuses as of 03/16/2022) [facility]* [...] of this encounter (statuses as of 03/23/2022) [facility]* [...] of this encounter (statuses as of 04/03/2022) [facility]* [...] of this encounter (statuses as of 04/04/2022) [facility]* [...] of this encounter (statuses as of 04/06/2022) [facility]* [...] of this encounter (statuses as of 04/17/2022) [facility]* [...] of this encounter (statuses as of 04/17/2022) [facility]* [...] of this encounter (statuses as of 04/19/2022) [facility]* [...] of this encounter (statuses as of 05/16/2022) [facility]* [...] of this encounter (statuses as of 06/25/2022) [facility]* [...] of this encounter (statuses as of 07/14/2022) [facility]* [...] of this encounter (statuses as of 07/15/2022) [facility]* [...] of this encounter (statuses as of 07/18/2022) [facility]* [...] of this encounter (statuses as of 07/18/2022) [facility]* [...] of this encounter (statuses as of 07/19/2022) [facility]* [...] of this encounter (statuses as of 07/20/2022) [facility]* [...] of this encounter (statuses as of 07/25/2022) [facility]* [...] of this encounter (statuses as of 07/26/2022) [facility]* [...] of this encounter (statuses as of 07/27/2022) [facility]* [...] of this encounter (statuses as of 07/31/2022) [facility]* [...] of this encounter (statuses as of 08/06/2022) [facility]* [...] of this encounter (statuses as of 08/07/2022) [facility]* [...] of this encounter (statuses as of 08/09/2022) [facility]* [...] of this encounter (statuses as of 08/14/2022) [facility]* [...] of this encounter (statuses as of 08/16/2022) [facility]* [...] of this encounter (statuses as of 08/28/2022) [facility]* [...] of this encounter (statuses as of 09/07/2022) [facility]* [...] of this encounter (statuses as of 09/09/2022) [facility]* [...] of this encounter (statuses as of 09/25/2022) [facility]* [...] of this encounter (statuses as of 10/23/2022) [facility]* [...] of this encounter (statuses as of 11/20/2022) [facility]* [...] of this encounter (statuses as of 11/20/2022) [facility]* [...] of this encounter (statuses as of 12/13/2022) [facility]* [...] of this encounter (statuses as of 12/14/2022) [facility]* [...] of this encounter (statuses as of 12/18/2022) [facility]* [...] of this encounter (statuses as of 12/25/2022) [facility]* [...] of this encounter (statuses as of 12/27/2022) [facility]* [...] of this encounter (statuses as of 12/31/2022) [facility]* [...] of this encounter (statuses as of 01/03/2023) [facility]* [...] of this encounter (statuses as of 01/04/2023) [facility]* [...] of this encounter (statuses as of 01/04/2023) [facility]* [...] of this encounter (statuses as of 01/25/2023) [facility]* [...] of this encounter (statuses as of 01/29/2023) [facility] note* Diagnosis Type 2 diabetes mellitus with diabetic neuropathy, with long-term current use of insulin (HCC) Status post aortic valve repair Other postprocedural status Chronic anticoagulation Long-term (current) use of anticoagulants [facility] Diagnosis Colon cancer screening Special screening for malignant neoplasms, colon documented in this encounter [facility] note* Diagnosis Colon cancer screening- Primary Special screening for malignant neoplasms, colon documented [facility]* Diagnosis Diverticulosis- Primary Diverticulosis of colon (without mention of hemorrhage) Cecal polyp documented in this encounter [facility] noteNo assessment information availableWM[facility] Work [facility]: [facility]* Diagnosis COVID-19- Primary documented in this encounter [facility] note* Diagnosis COVID-19- Primary documented in this encounter [facility] note* Diagnosis Onset Date Resolution Status Acute dehydration acute ANTHONY (acute kidney injury) ac havasupai Heat exhaustion acute Hyperkalemia acute Lactic acidosis acute Leukocytosis acute [facility] Work Phone: Evaluation note* Diagnosis Hyperlipidemia with target LDL less than 100- Primary Other and unspecified hyperlipidemia Primary hypertension Unspecified essential hypertension Thoracic aortic aneurysm without rupture (HCC) Thoracic aneurysm without mention of rupture Coronary artery disease involving pauma coronary artery of pauma heart without angina pectoris Syncope, unspecified syncope type Obesity, Class II, BMI 35-39.9 Obesity, unspecified documented in this encounter [facility] note* Diagnosis Syncope and collapse- Primary Altered mental status, unspecified altered mental status type Urinary incontinence, unspecified type Benign prostatic hyperplasia with nocturia Nocturia Vitamin D deficiency, unspecified Wound of left lower extremity, initial encounter Encounter for screening for malignant neoplasm of prostate Special screening for malignant neoplasm of prostate documented in this encounter [facility] note* Diagnosis Abnormality of gait due to impairment of balance- Primary Altered mental status, unspecified altered mental status type documented in this encounter [facility] note* Diagnosis Chronic anticoagulation Long-term (current) use of anticoagulants Thoracic aortic aneurysm without rupture (HCC) Thoracic aneurysm without mention of rupture Status post aortic valve repair Other postprocedural status [facility] Type 2 diabetes mellitus with diabetic neuropathy, with long-term current use of insulin (HCC)- Primary [facility] Diagnosis Abnormality of gait due to impairment of balance- Primary [facility] Diagnosis Abnormality of gait due to impairment of balance- Primary [facility] Vitamin D deficiency Unspecified vitamin D deficiency [facility] Diagnosis Abnormality of gait due to impairment of balance- Primary [facility] Vitamin D deficiency Unspecified vitamin D deficiency [facility] Diagnosis Type 2 diabetes mellitus with stage 3 chronic kidney disease, with long-term current use of insulin ([facility]) [facility] Diagnosis Abnormality of gait due to impairment of balance- Primary [facility] Diagnosis Type 2 diabetes mellitus with diabetic neuropathy, with long-term current use of insulin ([facility]) [facility] Diagnosis Abnormality of gait due to impairment of balance- Primary [facility] Diagnosis Abnormality of gait due to impairment of balance- Primary [facility] Onset Date Resolution Status Acute dehydration resolved Heat exhaustion resolved [facility] Work Phone: Evaluation note* Diagnosis Abnormality of gait due to impairment of balance- Primary [facility] Diagnosis Status post aortic valve repair Other postprocedural status Chronic anticoagulation Long-term (current) use of anticoagulants [facility] Generalized weakness- Primary Other malaise and fatigue Supratherapeutic INR Abnormal coagulation profile ANTHONY (acute kidney injury) (HCC) Acute kidney failure, unspecified [facility] Diagnosis Abnormality of gait due to impairment of balance- Primary [facility] Diagnosis Abnormality of gait due to impairment of balance- Primary [facility] Diagnosis Urinary incontinence, unspecified type [facility] Diagnosis Abnormality of gait due to impairment of balance- Primary [facility] Diagnosis Onychomycosis- Primary Dermatophytosis of nail Pain in toe of left foot Pain in limb Amputated toe of right foot (HCC) Diabetic polyneuropathy associated with type 2 diabetes mellitus (HCC) [facility] Diagnosis Generalized weakness- Primary Other malaise and fatigue Encounter for immunization Need for other specified prophylactic vaccination against single bacterial disease Mild depression Depressive disorder, not elsewhere classified [facility] Diagnosis Generalized anxiety disorder- Primary Polyneuropathy Unspecified hereditary and idiopathic peripheral neuropathy [facility] Diagnosis Urinary incontinence, unspecified type [facility] Diagnosis Onset Date Resolution Status History of pulmonary embolism acute History of thoracic aortic aneurysm repair acute NSTEMI, initial episode of care acute HTN (hypertension) [facility] Work Phone: Evaluation note* Diagnosis Dizziness- Primary Dizziness and giddiness Chronic frontal sinusitis [facility] Diagnosis Type 2 diabetes mellitus with diabetic neuropathy, with long-term current use of insulin ([facility])- Primary Diabetic polyneuropathy associated with type 2 diabetes mellitus (HCC) NSTEMI (non-ST elevated myocardial infarction) ([facility]) Acute myocardial infarction, subendocardial infarction, episode of [...] disease, with long-term current use of insulin ([facility]) 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, macular edema presence unspecified ([facility]) documented [facility] encounter [facility]* Diagnosis Driving safety issue- Primary Other specified personal history presenting hazards to health [facility] Onychomycosis- Primary Dermatophytosis of nail Pain in toe of left foot Pain in limb Amputated toe of right foot (HCC) Diabetic polyneuropathy associated with type 2 diabetes mellitus (HCC) documented in this encounter [facility] note* Diagnosis Spinal stenosis, lumbar region, without neurogenic claudication- Primary Primary osteoarthritis of both knees Primary localized osteoarthrosis, lower leg documented in this encounter [facility] note* Diagnosis Spinal stenosis, lumbar region, without neurogenic claudication- Primary Primary osteoarthritis of both knees Primary localized osteoarthrosis, lower leg documented in this encounter [facility] note* Diagnosis Spinal stenosis, lumbar region, without neurogenic claudication- Primary Primary osteoarthritis of both knees Primary localized osteoarthrosis, lower leg documented in this encounter [facility] note* Diagnosis Spinal stenosis, lumbar region, without neurogenic claudication- Primary Primary osteoarthritis of both knees Primary localized osteoarthrosis, lower leg documented in this encounter [facility] note* Diagnosis Spinal stenosis, lumbar region, without neurogenic claudication- Primary Primary osteoarthritis of both knees Primary localized osteoarthrosis, lower leg documented in [facility]* Diagnosis Spinal stenosis, lumbar region, without neurogenic claudication- Primary Primary osteoarthritis of both knees Primary localized osteoarthrosis, lower leg documented in this encounter [facility] note* Diagnosis Onset Date Resolution Status Confusion acute Weakness acute [facility] Work Phone: Evaluation note* Diagnosis Onset Date Resolution Status Confusion acute Weakness acute ABLA (acute blood loss anemia) acute Acute encephalopathy acute Supratherapeutic INR acute Syncope acute Upper gastrointestinal bleeding acute Warfarin-induced coagulopathy acute [facility] Work Phone: Evaluation note* Diagnosis [...] acute Warfarin-induced coagulopathy acute HTN (hypertension) chronic [facility] Work Phone: Evaluation note* Diagnosis [...] type II acute Sick sinus syndrome acute [facility] Work Phone: Evaluation note* Diagnosis [...] (INR) acute UTI (urinary tract infection) acute [facility] Work Phone: Evaluation note* Diagnosis [...] UTI (urinary tract infection) acute Weakness acute [facility] Work Phone: Evaluation note* Diagnosis [...] Second degree AV block, Mobitz type II [facility] Work Phone: Evaluation note* Diagnosis Onset Date [...] Second degree AV block, Mobitz type II [facility] Work Phone: Evaluation note* Diagnosis Onset Date [...] Second degree AV block, Mobitz type II [facility] Work Phone: Evaluation note* Diagnosis Onset Date Resolution Status Presence of cardiac pacemaker acute Syncope acute Second degree AV block, Mobitz type II chronic Sick sinus syndrome chronic Atrial fibrillation acute HLD (hyperlipidemia) acute Presence of cardiac pacemaker acute HTN (hypertension) chronic Second degree AV block, Mobitz type II [facility] Work Phone: Evaluation note* Diagnosis Onset Date Resolution Status Atrial fibrillation acute HLD (hyperlipidemia) acute Presence of cardiac pacemaker acute HTN (hypertension) chronic Second degree AV block, Mobitz type II [facility] Work Phone: History and physical note Author Dr. Aly [facility] January 04, 2023 4:32pm Note Date/Time January 04, 2023 4:12 pm [facility] Medical Records Department [address] [place] [id number] H&P Exam - Hospitalist 01/04/23 1607 MR#: [id number] Acct: [id number] Name: RICHARD ROY Rep #:[id number] : 1945 77 From: Karen Aly MD PCP: Dr. Luis Caldera MD Status :ADM LUIS ANGEL Location: [place] [address] HPI - General General Date of Admission: 01/04/23 Date of Service: 01/04/23 Chief Complaint: Confusion, falls. HPI Narrative The patient is a 77 y/o M w/ PMHx: AAA s/p repair, Hx COVID-19, Hx GI bleed, Valvular heart disease s/p AVR, HTN, HLD, VTE w/ Hx DVT/PE, Diabetes mellitus type II, Obesity who presents to the [facility] ED on 01/04/23 with history of ~ [...] no acute intracranial abnormality, right maxillary sinusitis. [facility] Medical History Amputation of right [...] 78.3 H, Lymph % (Auto) 12.8 L, Cochran % (Auto) 5.9, Eos % (Auto) 1.7, [...] Sl. Cloudy, Urine pH 6.0, Ur Specific [place] 1.020, Urine Protein 15 H, Urine Glucose [...] type II, Obesity who presents to the [facility] ED on 01/04/23 with history of ~ [...] 60 minutes. Charges/Coding Visit Charges Inpatient E&M: 09407 Init Hosp L2 01/04/23 1632 <Electronically signed by Karen Aly MD> Cosigner Signature (if applicable): CC: Dr. Karen Aly MD; Dr. Luis Caldera MD~ Signed [facility] Work Phone: Hospital course Narrative No data available for this section [facility] Hospital Discharge instructions No data available for this section [facility] Discharge instructions Additional Instructions Work-up revealed [...] days of antibiotics please return for repeat evaluationWM[facility] Work Phone: Hospital Discharge instructionsAdditional Instructions Blood work did not show any acute findings here today. X-ray did not show any evidence of osteomyelitis of his foot. His head CT did not show any acute findings either. Return with worsening symptoms or any concerns.[facility] Work Phone: Progress note No data available for this section [facility] Progress note Author Liu Hackett [facility] January 26, 2023 3:50pm Note Date/Time January 26, 2023 3:50 pm [facility] Medical Records Department [address] [place] [id number] Progress Note - GI 01/26/23 1549 MR#: [id number] Acct: [id number] Name: RICHARD ROY Rep #:[id number] : 1945 77 From: Liu Hackett DO PCP: Dr. Luis Caldera MD Status :ADM IN Location: [place] [address] Subjective Subjective Patient is doing well today. [...] 78.4 H, Lymph % (Auto) 8.1 L, Cochran % (Auto) 9.6, Eos % (Auto) 1.6, [...] Heart rate in 50s.. 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 No chest pain or tightness. Physical exam [...] ensure healing. Charges/Coding Visit Charges Inpatient E&M: 97823 Subs Hosp L3 01/26/23 1550 <Electronically signed by Liu Hackett DO> Cosigner Signature (if applicable): CC: ~ Signed [facility] Work Phone: Progress note Author Smith Leija [facility] February 13, 2023 3:58pm Note Date/Time February 13, 2023 3:5 8pm [facility] Medical Records Department [address] [place] [address] Progress Note - Infect Disease 02/13/231556 MR#: [id number] Acct: [id number] Name: RICHARD ROY Rep #:[id number] : 1945 77 From: Smith mcdowell MD PCP: Dr. Luis Caldera MD Status :ADM IN Location: [place] [address]-1 Physical Exam Narrative Feeling better, no fever, [...] Cosigner Signature (if applicable): CC: ~ Signed [facility] Work Phone: Reason for referral (narrative)* Outpatient Procedure (Routine) - Closed Specialty Diagnoses / Procedures Referred By Contac t Referred To Contact [facility] Diagnoses Colon cancer screening Procedures COLONOSCOPY SCREENING COLONOSCOPY FLX DX W/COLLJ SPEC WHEN PFRMD [place] PA-C [address] [place] [address] [facility] [place] [address] [place] [address] Referral ID Status Reason Start Date Expiration Date V isits Requested Visits Authorized [id number] Closed Auto-Generate d Referral 08/16/2021 08/16/2022 1 1 [facility] for referral (narrative)* Outpatient Procedure (Routine) - Closed Specialty Diagnoses / Procedures Referred By Contac t Referred To Contact [facility] [facility] Diagnoses Colon cancer screening Procedures COLONOSCOPY SCREENING COLONOSCOPY FLX DX W/COLLJ SPEC WHEN Marcella Alatrore PA-C [address] [place] [address] [facility] [address] [place] [address] Referral ID Status Reason Start Date Expiration Date V isits Requested Visits Authorized [id number] Closed Auto-Generate d Referral 08/16/2021 08/16/2022 1 1 [facility] for referral (narrative)No reason for referral [facility]: Reason for visit Narrative* Outpatient Procedure (Routine) - Closed Specialty Diagnoses / Procedures Referred By Contac t Referred To Contact [facility] Diagnoses Colon cancer screening Procedures COLONOSCOPY SCREENING COLONOSCOPY FLX DX W/COLLJ SPEC WHEN Marcella Alatorre PA-C [address] [place] [address] [facility] [place] [facility] [place] [address] Referral ID Status Reason Start Date Expiration Date V isits Requested Visits Authorized [id number] Closed Auto-Generate d Referral 08/16/2021 08/16/2022 1 1 [facility] for visit Narrative* Outpatient Procedure (Routine) - Closed Specialty Diagnoses / Procedures Referred By Contac t Referred To Contact [facility] Diagnoses Chronic anticoagulation Thoracic aortic aneurysm without rupture (HCC) Status post aortic valve repair Procedures ECHO TTE W/DOPPLER, COMPLETE Leonie, Justina E, PERFORATOR TYPIST.CASE MANAGEMENT SOCIAL WORKER [address] [place] [address] [facility] [place] [address] [place] [address] Referral ID Status Reason Start Date Expiration Date V isits Requested Visits Authorized [id number] Closed Auto-Generate d Referral 07/03/2021 07/03/2022 1 1 [facility] Advance Directives No Advanced Directives Records FoundDocuments on File Type Date Recorded Patient Order Booker Expl anation Advance Directive(s) 09/12/2021 7:14 AM Documents on File Type Date Recorded Patient Order Booker Expl anation Advance Directive(s) 09/12/2021 7:14 AM Advance Directive Response Recorded Date/ Time Advance Directives Yes September 16 11:11pm Living Will No December 06, 2021 1 1:07pm Power of Silk Finisher No December 06, 2021 11:07pm Advance Directive Response Recorded Date/ Time Name of Medical Power of Silk Finisher Gena Roy December 27, 2021 10:36pm Advance Directives Yes September 16 11:11pm Living Will Yes December 27, 2021 10:36pm Power of Silk Finisher Yes December 27 10:36pm Advance Directive Response Recorded Date/ Time Name of Medical Power of Silk Finisher Gena Roy December 27, 2021 10:36pm Name of Medical Power of Silk Finisher TEDDY ROY (SON ) March 02, 2022 2:34pm Advance Directives Yes September 16 11:11pm Living Will Yes March 02 2:34pm Power of Silk Finisher Yes March 02, 022 2:34pm Advance Directive Response Recorded Date/ Time Name of Medical Power of Silk Finisher teddy roy July 10, 2022 3:06am Advance Directives Yes September 16 10:11pm Living Will Yes July 10, 022 3:06am Power of Silk Finisher Yes July 10, 2022 3:06am Advance Directive Response Recorded Date/ Time Name of Medical Power of Silk Finisher ? January 04, 2023 11:15am Advance Directives Yes March 5th, 20 14 11:11pm Living Will Yes January 04, 2023 11:15am Power of Silk Finisher Yes January 04 11:15am Advance Directive Response Recorded Date/ Time Name of Medical Power of Silk Finisher Ciarra Roy (spouse), Teddy Roy (son) January 04, 2023 6:23pm Name of Medical Power of Silk Finisher GENA ROY January 21, 2023 8:26am Advance Directives Yes September 16 11:11pm Living Will Yes January 21, 2023 8:26am Power of Silk Finisher Yes January 21 8:26am Advance Directive Response Recorded Date/ Time Name of Medical Power of Silk Finisher Ciarra Roy (spouse), Teddy Roy (son) January 04, 2023 6:23pm Name of Medical Power of Silk Finisher Ciarra Roy January 21, 2023 12:23pm Advance Directives Yes September 16 11:11pm Living Will Yes January 21, 2023 12:23pm Power of Silk Finisher Yes January 21 12:23pm Advance Directive Response Recorded Date/ Time Name of Medical Power of Silk Finisher Ciarra Roy (spouse), Teddy Roy (son) January 04, 2023 6:23pm Name of Medical Power of Silk Finisher Ciarra Roy (spouse) January 27, 2023 6:04pm Advance Directives Yes September 16 11:11pm Living Will Yes January 27, 2023 6:04pm Power of Silk Finisher Yes January 27 6:04pm Name of Medical Power of Silk Finisher Ciarra Roy January 21, 2023 12:23pm Advance Directive Response Recorded Date/ Time Name of Medical Power of Silk Finisher Ciarra Roy (spouse), Teddy Roy (son) January 04, 2023 6:23pm Name of Medical Power of Silk Finisher Ciarra Regant January 27, 2023 9:40pm Name of Medical Power of Silk Finisher Ciarra Robison, February 10, 2023 9:27pm Advance Directives Yes September 16 14 11:11pm Living Will Yes February 10, 2023 9:27pm Power of Silk Finisher Yes February 10 9:27pm Name of Medical Power of Silk Finisher Ciarra Regant January 21, 2023 12:23pm Advance Directive Response Recorded Date/ Time Name of Medical Power of Silk Finisher Ciarra Roy (spouse), Teddy Roy (son) January 04, 2023 6:23pm Name of Medical Power of Silk Finisher Ciarra Regant January 27, 2023 9:40pm Name of Medical Power of Silk Finisher Ciarra Robison, February 10, 2023 9:27pm Name of Medical Power of Silk Finisher RICHARDDaksha Ciarra, February 11, 2023 4:25pm Advance Directives Yes September 16 11:11pm Living Will Yes February 11, 2023 4:25pm Power of Silk Finisher Yes February 11 4:25pm Name of Medical Power of Silk Finisher Ciarra Roy January 21, 2023 12:23pm Advance Directive Response Recorded Date/ Time Name of Medical Power of Silk Finisher Ciarra Roy (spouse), Teddy Roy (son) January 04, 2023 6:23pm Name of Medical Power of Silk Finisher Ciarra Roy January 27, 2023 9:40pm Name of Medical Power of Silk Finisher Ciarra Robison, February 10, 2023 9:27pm Name of Medical Power of Silk Finisher RICHARDDaksha Ciarra, February 11, 2023 8:40pm Advance Directives Yes September 16 11:11pm Living Will Yes February 11, 2023 8:40pm Power of Silk Finisher Yes February 11 8:40pm Name of Medical Power of Silk Finisher Ciarra Roy January 21, 2023 12:23pm Advance Directive Response Recorded Date/ Time Name of Medical Power of Silk Finisher Ciarra Roy January 27, 2023 9:40pm Name of Medical Power of Silk Finisher Ciarra Robison, February 10, 2023 9:27pm Name of Medical Power of Silk Finisher RICHARDCiarra Crooks, w david February 11, 2023 8:40pm Advance Directives Yes September 16 11:11pm Living Will Yes February 11, 2023 8:40pm Power of Silk Finisher Yes February 11 8:40pm Name of Medical Power of Silk Finisher Ciarra Roy January 21, 2023 12:23pm Advance Directive Response Recorded Date/ Time Name of Medical Power of Silk Finisher Ciarra Roy January 27, 2023 8:40pm Name of Medical Power of Silk Finisher Ciarra Robison, February 10, 2023 8:27pm Name of Medical Power of Silk Finisher Ciarra MEEKS, w david February 11, 2023 7:40pm Advance Directives Yes September 16 10:11pm Living Will Yes February 11, 2023 7:40pm Power of Silk Finisher Yes February 11 7:40pm Name of Medical Power of Silk Finisher Ciarra Roy January 21, 2023 11:23am Advance Directive Response Recorded Date/ Time Name of Medical Power of Silk Finisher Ciarra Roy January 27, 2023 8:40pm Name of Medical Power of Silk Finisher Ciarra Robison, February 10, 2023 8:27pm Name of Medical Power of Silk Finisher Ciarra MEEKS, w david February 11, 2023 7:40pm Advance Directives Yes September 16 10:11pm Living Will No May 30, 2 023 11:36am Power of Silk Finisher No May 30, 2023 11:36am Advance Directive Response Recorded Date/ Time Advance Directives Yes September 16 10:11pm Living Will No May 30, 2 023 11:36am Power of Silk Finisher No May 30, 2023 11:36am Advance Directive Response Recorded Date/ Time Advance Directives Yes September 16 11:11pm Living Will No May 30, 2 023 12:36pm Power of Silk Finisher No May 30, 2023 12:36pm Advance Directive Response Recorded Date/ Time Advance Directives Yes September 16 11:11pm Advance Directive Response Recorded Date/ Time Do you have a Healthcare Power of Silk Finisher? Yes February 02, 2025 7:49pm Advance Directives Yes September 16 11:11pm Advance Directive Response Recorded Date/ Time Do you have a Healthcare Power of Silk Finisher? Yes February 03, 2025 1:28am Advance Directives Yes September 16 11:11pm Advance Directive Response Recorded Date/ Time Do you have a Healthcare Power of Silk Finisher? Yes February 03, 2025 1:28am Do you have a Healthcare Power of Silk Finisher? Yes February 27, 2025 6:33pm Advance Directives [...] day post implant check RECURRENT GI BLEED GROUP HOME LABWORK AMS BACTEREMIA, CYSTITIS Urinary tract infection [...] day post implant check RECURRENT GI BLEED GROUP HOME LABWORK AMS LAB WORK BACTEREMIA, CYSTITIS Urinary tract infection BACTEREMIA, CYSTITIS BACTEREMIA, CYSTITIS LAB WORK LAB WORK 1 wk wound check LABWORK LABWORK LABWORK LABWORK LABWORK GROUP HOME LABWORK LABWORK 6 wk post PPM implant [...] day post implant check RECURRENT GI BLEED GROUP HOME LABWORK AMS LAB WORK BACTEREMIA, CYSTITIS Urinary tract infection BACTEREMIA, CYSTITIS BACTEREMIA, CYSTITIS LAB WORK LAB WORK 1 wk wound check LABWORK LABWORK LABWORK LABWORK LABWORK GROUP HOME LABWORK LABWORK 6 wk post PPM implant f/u / KR @ 2p S/P PACER IMPLANT 6 wk fu / NAA @ 1:30 LABWORK GROUP HOME LAB WORK GROUP HOME LABWORK GROUP HOME LAB WORK Reason for Visit Confusion Weakness [...] day post implant check RECURRENT GI BLEED GROUP HOME LABWORK AMS LAB WORK BACTEREMIA, CYSTITIS Urinary tract infection BACTEREMIA, CYSTITIS BACTEREMIA, CYSTITIS LAB WORK LAB WORK 1 wk wound check LABWORK LABWORK LABWORK LABWORK LABWORK GROUP HOME LABWORK LABWORK 6 wk post PPM implant f/u / KR @ 2p S/P PACER IMPLANT 6 wk fu / NAA @ 1:30 LABWORK GROUP HOME LAB WORK GROUP HOME LABWORK GROUP HOME LAB WORK GROUP HOME LAB WORK Reason for Visit Confusion Weakness [...] day post implant check RECURRENT GI BLEED GROUP HOME LABWORK AMS LAB WORK BACTEREMIA, CYSTITIS Urinary tract infection BACTEREMIA, CYSTITIS BACTEREMIA, CYSTITIS LAB WORK LAB WORK 1 wk wound check LABWORK LABWORK LABWORK LABWORK LABWORK GROUP HOME LABWORK LABWORK 6 wk post PPM implant f/u / KR @ 2p S/P PACER IMPLANT 6 wk fu / NAA @ 1:30 LABWORK GROUP HOME LAB WORK GROUP HOME LABWORK GROUP HOME LAB WORK GROUP HOME LAB WORK LABWORK Reason for Visit Acute [...] day post implant check RECURRENT GI BLEED GROUP HOME LABWORK AMS LAB WORK BACTEREMIA, CYSTITIS Urinary tract infection BACTEREMIA, CYSTITIS BACTEREMIA, CYSTITIS LAB WORK LAB WORK 1 wk wound check LABWORK LABWORK LABWORK LABWORK LABWORK GROUP HOME LABWORK LABWORK 6 wk post PPM implant f/u / KR @ 2p S/P PACER IMPLANT 6 wk fu / NAA @ 1:30 LABWORK GROUP HOME LAB WORK GROUP HOME LABWORK GROUP HOME LAB WORK GROUP HOME LAB WORK LABWORK LABWORK Reason for Visit [...] day post implant check RECURRENT GI BLEED GROUP HOME LABWORK AMS LAB WORK BACTEREMIA, CYSTITIS Urinary tract infection BACTEREMIA, CYSTITIS BACTEREMIA, CYSTITIS LAB WORK LAB WORK 1 wk wound check LABWORK LABWORK LABWORK LABWORK LABWORK GROUP HOME LABWORK LABWORK 6 wk post PPM implant f/u / KR @ 2p S/P PACER IMPLANT 6 wk fu / NAA @ 1:30 LABWORK GROUP HOME LAB WORK GROUP HOME LABWORK GROUP HOME LAB WORK GROUP HOME LAB WORK LABWORK LABWORK GROUP HOME LAB WORK Reason for Visit HTN (hypertension) [...] day post implant check RECURRENT GI BLEED GROUP HOME LABWORK AMS LAB WORK BACTEREMIA, CYSTITIS Urinary tract infection BACTEREMIA, CYSTITIS BACTEREMIA, CYSTITIS LAB WORK LAB WORK 1 wk wound check LABWORK LABWORK LABWORK LABWORK LABWORK GROUP HOME LABWORK LABWORK 6 wk post PPM implant f/u / KR @ 2p S/P PACER IMPLANT 6 wk fu / NAA @ 1:30 LABWORK GROUP HOME LAB WORK GROUP HOME LABWORK GROUP HOME LAB WORK GROUP HOME LAB WORK LABWORK LABWORK GROUP HOME LAB WORK Reason for Visit HTN (hypertension) [...] II Chief Complaint LABWORK LABWORK LABWORK LABWORK GROUP HOME LABWORK LABWORK 6 wk post PPM implant f/u / KR @ 2p S/P PACER IMPLANT 6 wk fu / NAA @ 1:30 LABWORK GROUP HOME LAB WORK GROUP HOME LABWORK GROUP HOME LAB WORK GROUP HOME LAB WORK LABWORK LABWORK GROUP HOME LAB WORK LABWORK Reason for Visit Presence of cardiac pacemaker Syncope Second degree AV block, Mobitz type II Sick sinus syndrome Atrial fibrillation HLD (hyperlipidemia) Presence of cardiac pacemaker HTN (hypertension) Second degree AV block, Mobitz type II Chief Complaint LABWORK GROUP HOME LABWORK LABWORK 6 wk post PPM implant f/u / KR @ 2p S/P PACER IMPLANT 6 wk fu / NAA @ 1:30 LABWORK GROUP HOME LAB WORK GROUP HOME LABWORK GROUP HOME LAB WORK GROUP HOME LAB WORK LABWORK LABWORK GROUP HOME LAB WORK GROUP HOME LAB WORK LABWORK LABWORK Reason for Visit Presence of cardiac pacemaker Syncope Second degree AV block, Mobitz type II Sick sinus syndrome Atrial fibrillation HLD (hyperlipidemia) Presence of cardiac pacemaker HTN (hypertension) Second degree AV block, Mobitz type II Chief Complaint GROUP HOME LABWORK LABWORK 6 wk post PPM implant f/u / KR @ 2p S/P PACER IMPLANT 6 wk fu / NAA @ 1:30 LABWORK GROUP HOME LAB WORK GROUP HOME LABWORK GROUP HOME LAB WORK GROUP HOME LAB WORK LABWORK LABWORK GROUP HOME LAB WORK GROUP HOME LAB WORK LABWORK GROUP HOME LAB WORK LABWORK Reason for Visit Presence of cardiac pacemaker Syncope Second degree AV block, Mobitz type II Sick sinus syndrome Atrial fibrillation HLD (hyperlipidemia) Presence of cardiac pacemaker HTN (hypertension) Second degree AV block, Mobitz type II Chief Complaint LABWORK 6 wk post PPM implant f/u / KR @ 2p S/P PACER IMPLANT 6 wk fu / NAA @ 1:30 LABWORK GROUP HOME LAB WORK GROUP HOME LABWORK GROUP HOME LAB WORK GROUP HOME LAB WORK LABWORK LABWORK GROUP HOME LAB WORK GROUP HOME LAB WORK LABWORK GROUP HOME LAB WORK LABWORK LABWORK Reason for Visit Presence of cardiac pacemaker Syncope Second degree AV block, Mobitz type II Sick sinus syndrome Atrial fibrillation HLD (hyperlipidemia) Presence of cardiac pacemaker HTN (hypertension) Second degree AV block, Mobitz type II Chief Complaint LABWORK 6 wk post PPM implant f/u / KR @ 2p S/P PACER IMPLANT 6 wk fu / NAA @ 1:30 LABWORK GROUP HOME LAB WORK GROUP HOME LABWORK GROUP HOME LAB WORK GROUP HOME LAB WORK LABWORK LABWORK GROUP HOME LAB WORK GROUP HOME LAB WORK LABWORK GROUP HOME LAB WORK GROUP HOME LABWORK LABWORK LABWORK Reason for Visit Presence of cardiac pacemaker Syncope Second degree AV block, Mobitz type II Sick sinus syndrome Atrial fibrillation HLD (hyperlipidemia) Presence of cardiac pacemaker HTN (hypertension) Second degree AV block, Mobitz type II Chief Complaint 6 wk post PPM implan t f/u / KR @ 2p S/P PACER IMPLANT 6 wk fu / NAA @ 1:30 LABWORK GROUP HOME LAB WORK GROUP HOME LABWORK GROUP HOME LAB WORK GROUP HOME LAB WORK LABWORK LABWORK GROUP HOME LAB WORK GROUP HOME LAB WORK LABWORK GROUP HOME LAB WORK GROUP HOME LABWORK LABWORK GROUP HOME LAB WORK LABWORK Reason for Visit Presence of cardiac pacemaker Syncope Second degree AV block, Mobitz type II Sick sinus syndrome Atrial fibrillation HLD (hyperlipidemia) Presence of cardiac pacemaker HTN (hypertension) Second degree AV block, Mobitz type II Chief Complaint LABWORK GROUP HOME LAB WORK GROUP HOME LABWORK GROUP HOME LAB WORK GROUP HOME LAB WORK LABWORK LABWORK GROUP HOME LAB WORK GROUP HOME LAB WORK LABWORK GROUP HOME LAB WORK GROUP HOME LABWORK LABWORK GROUP HOME LAB WORK LABWORK LABWORK LABWORK Chief Complaint GROUP HOME LAB WOR K GROUP HOME LABWORK GROUP HOME LAB WORK GROUP HOME LAB WORK LABWORK LABWORK GROUP HOME LAB WORK GROUP HOME LAB WORK LABWORK GROUP HOME LAB WORK GROUP HOME LABWORK LABWORK GROUP HOME LAB WORK LABWORK LABWORK LABWORK LABWORK Chief Complaint GROUP HOME LAB WOR K GROUP HOME LAB WORK LABWORK LABWORK GROUP HOME LAB WORK GROUP HOME LAB WORK LABWORK GROUP HOME LAB WORK GROUP HOME LABWORK LABWORK GROUP HOME LAB WORK LABWORK GROUP HOME LAB WORK LABWORK LABWORK LABWORK Chief Complaint GROUP HOME LAB WOR K LABWORK LABWORK GROUP HOME LAB WORK GROUP HOME LAB WORK LABWORK GROUP HOME LAB WORK GROUP HOME LABWORK LABWORK GROUP HOME LAB WORK LABWORK GROUP HOME LAB WORK LABWORK LABWORK LABWORK LABWORK Chief Complaint GROUP HOME LAB WOR K LABWORK LABWORK GROUP HOME LAB WORK GROUP HOME LAB WORK LABWORK GROUP HOME LAB WORK GROUP HOME LABWORK LABWORK GROUP HOME LAB WORK LABWORK GROUP HOME LAB WORK LABWORK LABWORK LABWORK GROUP HOME LABWORK LABWORK Chief Complaint LABWORK LABWORK GROUP HOME LAB WORK GROUP HOME LAB WORK LABWORK GROUP HOME LAB WORK GROUP HOME LABWORK LABWORK GROUP HOME LAB WORK LABWORK GROUP HOME LAB WORK LABWORK LABWORK LABWORK GROUP HOME LABWORK LABWORK LABWORK Chief Complaint LABWORK GROUP HOME LAB WORK GROUP HOME LAB WORK LABWORK GROUP HOME LAB WORK GROUP HOME LABWORK LABWORK GROUP HOME LAB WORK LABWORK GROUP HOME LAB WORK LABWORK LABWORK LABWORK GROUP HOME LABWORK LABWORK LABWORK LABWORK Chief Complaint GROUP HOME LAB WOR K GROUP HOME LAB WORK LABWORK GROUP HOME LAB WORK GROUP HOME LABWORK LABWORK GROUP HOME LAB WORK LABWORK GROUP HOME LAB WORK LABWORK LABWORK LABWORK GROUP HOME LABWORK LABWORK LABWORK LABWORK LABWORK Chief Complaint GROUP HOME LAB WOR K LABWORK GROUP HOME LAB WORK GROUP HOME LABWORK LABWORK GROUP HOME LAB WORK LABWORK GROUP HOME LAB WORK LABWORK LABWORK LABWORK GROUP HOME LABWORK LABWORK LABWORK LABWORK LABWORK LABWORK Chief Complaint GROUP HOME LAB WOR K LABWORK GROUP HOME LAB WORK GROUP HOME LABWORK LABWORK GROUP HOME LAB WORK LABWORK GROUP HOME LAB WORK LABWORK LABWORK LABWORK GROUP HOME LABWORK LABWORK LABWORK LABWORK LABWORK LABWORK LABWORK Chief Complaint GROUP HOME LAB WOR K LABWORK GROUP HOME LAB WORK GROUP HOME LABWORK LABWORK GROUP HOME LAB WORK LABWORK GROUP HOME LAB WORK LABWORK LABWORK LABWORK GROUP HOME LABWORK LABWORK LABWORK LABWORK LABWORK LABWORK LABWORK LABWORK Chief Complaint GROUP HOME LAB WOR K LABWORK GROUP HOME LAB WORK GROUP HOME LABWORK LABWORK GROUP HOME LAB WORK LABWORK GROUP HOME LAB WORK LABWORK LABWORK LABWORK GROUP HOME LABWORK LABWORK LABWORK LABWORK LABWORK LABWORK LABWORK GROUP HOME LAB WORK LABWORK Chief Complaint GROUP HOME LAB WOR K LABWORK GROUP HOME LAB WORK GROUP HOME LABWORK LABWORK GROUP HOME LAB WORK LABWORK GROUP HOME LAB WORK LABWORK LABWORK LABWORK GROUP HOME LABWORK LABWORK LABWORK LABWORK LABWORK LABWORK LABWORK GROUP HOME LAB WORK LABWORK LABWORK 6 M FU Chief Complaint GROUP HOME LAB WOR K GROUP HOME LABWORK LABWORK GROUP HOME LAB WORK LABWORK GROUP HOME LAB WORK LABWORK LABWORK LABWORK GROUP HOME LABWORK LABWORK LABWORK LABWORK LABWORK LABWORK LABWORK GROUP HOME LAB WORK LABWORK LABWORK LABWORK 6 M FU Reason for Visit Atrial fibrillation HLD (hyperlipidemia) Presence of cardiac pacemaker HTN (hypertension) Second degree AV block, Mobitz type II Chief Complaint GROUP HOME LABWORK LABWORK GROUP HOME LAB WORK LABWORK GROUP HOME LAB WORK LABWORK LABWORK LABWORK GROUP HOME LABWORK LABWORK LABWORK LABWORK LABWORK LABWORK LABWORK GROUP HOME LAB WORK LABWORK LABWORK LABWORK 6 M FU GROUP HOME LAB WORK Reason for Visit Atrial fibrillation HLD (hyperlipidemia) Presence of cardiac pacemaker HTN (hypertension) Second degree AV block, Mobitz type II Chief Complaint GROUP HOME LAB WOR K LABWORK GROUP HOME LAB WORK LABWORK LABWORK LABWORK GROUP HOME LABWORK LABWORK LABWORK LABWORK LABWORK LABWORK LABWORK GROUP HOME LAB WORK LABWORK LABWORK LABWORK 6 M FU LABWORK GROUP HOME LAB WORK Reason for Visit Atrial fibrillation HLD (hyperlipidemia) Presence of cardiac pacemaker HTN (hypertension) Second degree AV block, Mobitz type II Chief Complaint LABWORK LABWORK GROUP HOME LABWORK LABWORK 6 wk post PPM implant f/u / KR @ 2p S/P PACER IMPLANT 6 wk fu / NAA @ 1:30 LABWORK GROUP HOME LAB WORK GROUP HOME LABWORK GROUP HOME LAB WORK GROUP HOME LAB WORK LABWORK LABWORK GROUP HOME LAB WORK GROUP HOME LAB WORK LABWORK Reason for Visit Presence of cardiac pacemaker Syncope Second degree AV block, Mobitz type II Sick sinus syndrome Atrial fibrillation HLD (hyperlipidemia) Presence of cardiac pacemaker HTN (hypertension) Second degree AV block, Mobitz type II Chief Complaint Admit Date GROUP HOME LAB WORK July 01 4:00am GROUP HOME LAB WORK July 07 5:00am LABWORK July 27, 2024 5 :00am GROUP HOME LAB WORK August 04, 2024 5:00am GROUP HOME LAB WORK September 29, 2024 4 :00am [...] 2024 1:0 9pm Chief Complaint Admit Date GROUP HOME LAB WORK July 01 4:00am GROUP HOME LAB WORK July 07 5:00am LABWORK July 27, 2024 5 :00am GROUP HOME LAB WORK August 04, 2024 5:00am GROUP HOME LAB WORK September 29, 2024 4 :00am GROUP HOME LAB WORK October 05, 2024 5 :00am 6 M FU October 12, 2024 1:0 9pm Chief Complaint Admit Date 6 M FU October 12, 2024 1:0 9pm GROUP HOME LAB WORK November 24, 2024 5:0 0am GROUP HOME LAB WORK December 16, 2024 4:0 0am GROUP HOME LAB WORK December 22, 2024 5: 00am [...] 2025 11:1 2pm Chief Complaint Admit Date GROUP HOME LAB WORK November 24, 2024 5:0 0am GROUP HOME LAB WORK December 16, 2024 4:0 0am GROUP HOME LAB WORK December 22, 2024 5: 00am [...] 02, 2025 11:12pm Chief Complaint Admit Date GROUP HOME LAB WORK November 24, 2024 5:0 0am GROUP HOME LAB WORK December 16, 2024 4:0 0am GROUP HOME LAB WORK December 22, 2024 5: 00am [...] 2025 6: 24pm Chief Complaint Admit Date GROUP HOME LAB WORK November 24, 2024 5:0 0am GROUP HOME LAB WORK December 16, 2024 4:0 0am GROUP HOME LAB WORK December 22, 2024 5: 00am [...] 03, 2025 3:23pm Chief Complaint Admit Date GROUP HOME LAB WORK November 24, 2024 5:0 0am GROUP HOME LAB WORK December 16, 2024 4:0 0am GROUP HOME LAB WORK December 22, 2024 5: 00am [...] LAB WORK February 22, 2025 4: 00am GROUP HOME LAB WORK February 25, 2025 5:00am LABWORK [...] 22, 2025 9:47am Chief Complaint Admit Date GROUP HOME LAB WORK November 24, 2024 5:0 0am GROUP HOME LAB WORK December 16, 2024 4:0 0am GROUP HOME LAB WORK December 22, 2024 5: 00am [...] LAB WORK February 22, 2025 4: 00am GROUP HOME LAB WORK February 25, 2025 5:00am LABWORK [...] 22, 2025 12:14pm Chief Complaint Admit Date GROUP HOME LAB WORK December 16, 2024 4:0 0am GROUP HOME LAB WORK December 22, 2024 5: 00am [...] LAB WORK February 22, 2025 4: 00am GROUP HOME LAB WORK February 25, 2025 5:00am LABWORK February 26, 2025 5: 00am lethargic February 27, 2025 6: 24pm LABWORKJ March 03, 2025 5: 00am Post Angiogram 2-4 WK FU March 03 3:23pm FOLLOW UP PVD March 16, 2025 12:51pm S/P [facility] 02/22March 22, 2025 9:47am overdue PPM f/u March 22, 2025 12:14pm Chief Complaint Admit Date GROUP HOME LAB WORK December 16, 2024 4:0 0am GROUP HOME LAB WORK December 22, 2024 5: 00am [...] LAB WORK February 22, 2025 4: 00am GROUP HOME LAB WORK February 25, 2025 5:00am LABWORK February 26, 2025 5: 00am lethargic February 27, 2025 6: 24pm LABWORKJ March 03, 2025 5: 00am Post Angiogram 2-4 WK FU March 03 3:23pm GROUP HOME LAB WORK March 16 4:00am FOLLOW UP [...] Diagnoses Driving safety issue Procedures CONSULT TO CHEMICAL WORKER OCCUPATIONAL THERAPY EVAL HIGH COMPLEX 60 MINS Jojo Kaur MD [address] [place] [address] [facility] [address] [address] Referral ID Status Reason Start Date Expiration Date Visits Requested Visits Authorized [id number] Authorized PCP Requested Referral Auto-Generate d Referral 09/07/2022 09/07/2023 99 99 Specialty Diagnoses / Procedures Referred By Linn carrillo Referred To Contact [facility] Diagnoses Polyneuropathy Procedures CONSULT TO PHYSICAL THERAPY PHYSICAL THERAPY EVALUATION HIGH COMPLEX 45 MINS Jojo Kaur MD [address] [place] [address] [facility] [address] [address] Referral ID Status Reason Start Date Expiration Date Visits Requested Visits Authorized [id number] Authorized PCP Requested Referral Auto-Generate d Referral 04/17/2022 04/17/2023 99 99 Specialty Diagnoses / Procedures Referred By Linn t Referred To Contact Psychology Diagnoses Generalized anxiety disorder Procedures CONSULT TO PSYCHOLOGY OFFICE/OUTPATIENT [facility] 60-74 MINUTES Jojo Kaur MD [address] [place] [address] Referral ID Status Reason Start Date Expiration Date Visits Requested Visits Authorized [id number] Pending Review PCP Requested Referral 04/17/2022 04/17/2023 1 1 Specialty Diagnoses / Procedures Referred By Linn carrillo Referred To Contact Podiatry Diagnoses Type 2 diabetes mellitus with diabetic neuropathy, with long-term current use of insulin (HCC) Procedures CONSULT TO PODIATRY OFFICE/OUTPATIENT [facility] 60-74 MINUTES PodlogRoselia hernandez APRN.CASE MANAGEMENT SOCIAL WORKER [address] [id number] Referral ID Status Reason Start Date Expiration Date Visits Requested Visits Authorized [id number] Authorized PCP Requested Referral 01/12/2022 01/11/2023 1 1 Specialty Diagnoses / Procedures Referred By Linn carrillo Referred To Contact [facility] Diagnoses Altered mental status, unspecified altered mental status type Procedures CONSULT TO SPEECH THERAPY OFFICE/OUTPATIENT [facility] 60-74 MINUTES Jojo Kaur MD [address] [place] [address] [facility] [address] [address] Referral ID Status Reason Start Date Expiration Date Visits Requested Visits Authorized [id number] Authorized Auto-Generat ed Referral 01/05/2022 01/05/2023 99 99 Specialty Diagnoses / Procedures Referred By Linn carrillo Referred To Contact [facility] Diagnoses Abnormality of gait due to impairment of balance Procedures CONSULT TO PHYSICAL THERAPY PHYSICAL THERAPY EVALUATION HIGH COMPLEX 45 MINS Jojo Kaur MD [address] [place] [address] [facility] [place] [address] [place] [address] Referral ID Status Reason Start Date Expiration Date Visits Requested Visits Authorized [id number] Authorized PCP Requested Referral Auto-Generate d Referral 01/05/2022 01/05/2023 99 99 Specialty Diagnoses / Procedures Referred By Contac t Referred To Contact [facility] Diagnoses Altered mental status, unspecified altered mental status type Procedures EPIL EEG ROUTINE ELECTROENCEPHALOGRAM REC COMA/SLEEP ONLY Jojo Kaur MD [address] [place] [address] [facility] [place] [address] [place] [id number] Referral ID Status Reason Start Date Expiration Date Visits Requested Visits Authorized [id number] Authorized Auto-Generat ed Referral 01/05/2022 01/05/2023 1 1 Specialty Diagnoses / Procedures Referred By Contac t Referred To Contact Neurology Diagnoses Altered mental status, unspecified altered mental status type Procedures CONSULT TO NEUROLOGY OFFICE/OUTPATIENT [facility] 60-74 MINUTES Abdulaziz Caldera MD [address] [place] [address] Referral ID Status Reason Start Date Expiration Date Visits Requested Visits Authorized [id number] Authorized PCP Requested Referral 01/01/2022 01/01/2023 1 1 Summary Purpose Additional Source Comments Source Comments (unrecognize d section and content) In the event this informatio n is protected by the Federal Confidentiality of Alcohol and Drug Abuse Patient Records regulations: The Federal rules restrict any use of the information to criminally investigate or prosecute any alcohol or drug abuse patient.[facility] the event this information is protected by the Federal Confidentiality of Alcohol and Drug Abuse Patient Records regulations: The Federal rules restrict any use of the information to criminally investigate or prosecute any alcohol or drug abuse patient.[facility] CenterIn the event this information is protected by the Federal Confidentiality of Alcohol and Drug Abuse Patient Records regulations: The Federal rules restrict any use of the information to criminally investigate or prosecute any alcohol or drug abuse patient.[facility] CenterIn the event this information is protected by the Federal Confidentiality of Alcohol and Drug Abuse Patient Records regulations: The Federal rules restrict any use of the information to criminally investigate or prosecute any alcohol or drug abuse patient.[facility] CenterIn the event this information is protected by the Federal Confidentiality of Alcohol and Drug Abuse Patient Records regulations: The Federal rules restrict any use of the information to criminally investigate or prosecute any alcohol or drug abuse patient.[facility] CenterIn the event this information is protected by the Federal Confidentiality of Alcohol and Drug Abuse Patient Records regulations: The Federal rules restrict any use of the information to criminally investigate or prosecute any alcohol or drug abuse patient.[facility] CenterIn the event this information is protected by the Federal Confidentiality of Alcohol and Drug Abuse Patient Records regulations: The Federal rules restrict any use of the information to criminally investigate or prosecute any alcohol or drug abuse patient.[facility] CenterIn the event this information is protected by the Federal Confidentiality of Alcohol and Drug Abuse Patient Records regulations: The Federal rules restrict any use of the information to criminally investigate or prosecute any alcohol or drug abuse patient.[facility] CenterIn the event this information is protected by the Federal Confidentiality of Alcohol and Drug Abuse Patient Records regulations: The Federal rules restrict any use of the information to criminally investigate or prosecute any alcohol or drug abuse patient.[facility] CenterIn the event this information is protected by the Federal Confidentiality of Alcohol and Drug Abuse Patient Records regulations: The Federal rules restrict any use of the information to criminally investigate or prosecute any alcohol or drug abuse patient.[facility] CenterIn the event this information is protected by the Federal Confidentiality of Alcohol and Drug Abuse Patient Records regulations: The Federal rules restrict any use of the information to criminally investigate or prosecute any alcohol or drug abuse patient.[facility] CenterIn the event this information is protected by the Federal Confidentiality of Alcohol and Drug Abuse Patient Records regulations: The Federal rules restrict any use of the information to criminally investigate or prosecute any alcohol or drug abuse patient.[facility] CenterIn the event this information is protected by the Federal Confidentiality of Alcohol and Drug Abuse Patient Records regulations: The Federal rules restrict any use of the information to criminally investigate or prosecute any alcohol or drug abuse patient.[facility] CenterIn the event this information is protected by the Federal Confidentiality of Alcohol and Drug Abuse Patient Records regulations: The Federal rules restrict any use of the information to criminally investigate or prosecute any alcohol or drug abuse patient.[facility] CenterIn the event this information is protected by the Federal Confidentiality of Alcohol and Drug Abuse Patient Records regulations: The Federal rules restrict any use of the information to criminally investigate or prosecute any alcohol or drug abuse patient.[facility] CenterIn the event this information is protected by the Federal Confidentiality of Alcohol and Drug Abuse Patient Records regulations: The Federal rules restrict any use of the information to criminally investigate or prosecute any alcohol or drug abuse patient.[facility] CenterIn the event this information is protected by the Federal Confidentiality of Alcohol and Drug Abuse Patient Records regulations: The Federal rules restrict any use of the information to criminally investigate or prosecute any alcohol or drug abuse patient.[facility] CenterIn the event this information is protected by the Federal Confidentiality of Alcohol and Drug Abuse Patient Records regulations: The Federal rules restrict any use of the information to criminally investigate or prosecute any alcohol or drug abuse patient.[facility] CenterIn the event this information is protected by the Federal Confidentiality of Alcohol and Drug Abuse Patient Records regulations: The Federal rules restrict any use of the information to criminally investigate or prosecute any alcohol or drug abuse patient.[facility] CenterIn the event this information is protected by the Federal Confidentiality of Alcohol and Drug Abuse Patient Records regulations: The Federal rules restrict any use of the information to criminally investigate or prosecute any alcohol or drug abuse patient.[facility] CenterIn the event this information is protected by the Federal Confidentiality of Alcohol and Drug Abuse Patient Records regulations: The Federal rules restrict any use of the information to criminally investigate or prosecute any alcohol or drug abuse patient.[facility] CenterIn the event this information is protected by the Federal Confidentiality of Alcohol and Drug Abuse Patient Records regulations: The Federal rules restrict any use of the information to criminally investigate or prosecute any alcohol or drug abuse patient.[facility] CenterIn the event this information is protected by the Federal Confidentiality of Alcohol and Drug Abuse Patient Records regulations: The Federal rules restrict any use of the information to criminally investigate or prosecute any alcohol or drug abuse patient.[facility] CenterIn the event this information is protected by the Federal Confidentiality of Alcohol and Drug Abuse Patient Records regulations: The Federal rules restrict any use of the information to criminally investigate or prosecute any alcohol or drug abuse patient.[facility] CenterIn the event this information is protected by the Federal Confidentiality of Alcohol and Drug Abuse Patient Records regulations: The Federal rules restrict any use of the information to criminally investigate or prosecute any alcohol or drug abuse patient.[facility] CenterIn the event this information is protected by the Federal Confidentiality of Alcohol and Drug Abuse Patient Records regulations: The Federal rules restrict any use of the information to criminally investigate or prosecute any alcohol or drug abuse patient.[facility] CenterIn the event this information is protected by the Federal Confidentiality of Alcohol and Drug Abuse Patient Records regulations: The Federal rules restrict any use of the information to criminally investigate or prosecute any alcohol or drug abuse patient.[facility] CenterIn the event this information is protected by the Federal Confidentiality of Alcohol and Drug Abuse Patient Records regulations: The Federal rules restrict any use of the information to criminally investigate or prosecute any alcohol or drug abuse patient.[facility] CenterIn the event this information is protected by the Federal Confidentiality of Alcohol and Drug Abuse Patient Records regulations: The Federal rules restrict any use of the information to criminally investigate or prosecute any alcohol or drug abuse patient.[facility] CenterIn the event this information is protected by the Federal Confidentiality of Alcohol and Drug Abuse Patient Records regulations: The Federal rules restrict any use of the information to criminally investigate or prosecute any alcohol or drug abuse patient.[facility] CenterIn the event this information is protected by the Federal Confidentiality of Alcohol and Drug Abuse Patient Records regulations: The Federal rules restrict any use of the information to criminally investigate or prosecute any alcohol or drug abuse patient.[facility] CenterIn the event this information is protected by the Federal Confidentiality of Alcohol and Drug Abuse Patient Records regulations: The Federal rules restrict any use of the information to criminally investigate or prosecute any alcohol or drug abuse patient.[facility] CenterIn the event this information is protected by the Federal Confidentiality of Alcohol and Drug Abuse Patient Records regulations: The Federal rules restrict any use of the information to criminally investigate or prosecute any alcohol or drug abuse patient.[facility] CenterIn the event this information is protected by the Federal Confidentiality of Alcohol and Drug Abuse Patient Records regulations: The Federal rules restrict any use of the information to criminally investigate or prosecute any alcohol or drug abuse patient.[facility] CenterIn the event this information is protected by the Federal Confidentiality of Alcohol and Drug Abuse Patient Records regulations: The Federal rules restrict any use of the information to criminally investigate or prosecute any alcohol or drug abuse patient.[facility] CenterIn the event this information is protected by the Federal Confidentiality of Alcohol and Drug Abuse Patient Records regulations: The Federal rules restrict any use of the information to criminally investigate or prosecute any alcohol or drug abuse patient.[facility] CenterIn the event this information is protected by the Federal Confidentiality of Alcohol and Drug Abuse Patient Records regulations: The Federal rules restrict any use of the information to criminally investigate or prosecute any alcohol or drug abuse patient.[facility] CenterIn the event this information is protected by the Federal Confidentiality of Alcohol and Drug Abuse Patient Records regulations: The Federal rules restrict any use of the information to criminally investigate or prosecute any alcohol or drug abuse patient.[facility] CenterIn the event this information is protected by the Federal Confidentiality of Alcohol and Drug Abuse Patient Records regulations: The Federal rules restrict any use of the information to criminally investigate or prosecute any alcohol or drug abuse patient.[facility] CenterIn the event this information is protected by the Federal Confidentiality of Alcohol and Drug Abuse Patient Records regulations: The Federal rules restrict any use of the information to criminally investigate or prosecute any alcohol or drug abuse patient.[facility] CenterIn the event this information is protected by the Federal Confidentiality of Alcohol and Drug Abuse Patient Records regulations: The Federal rules restrict any use of the information to criminally investigate or prosecute any alcohol or drug abuse patient.[facility] CenterIn the event this information is protected by the Federal Confidentiality of Alcohol and Drug Abuse Patient Records regulations: The Federal rules restrict any use of the information to criminally investigate or prosecute any alcohol or drug abuse patient.[facility] CenterIn the event this information is protected by the Federal Confidentiality of Alcohol and Drug Abuse Patient Records regulations: The Federal rules restrict any use of the information to criminally investigate or prosecute any alcohol or drug abuse patient.[facility] CenterIn the event this information is protected by the Federal Confidentiality of Alcohol and Drug Abuse Patient Records regulations: The Federal rules restrict any use of the information to criminally investigate or prosecute any alcohol or drug abuse patient.[facility] CenterIn the event this information is protected by the Federal Confidentiality of Alcohol and Drug Abuse Patient Records regulations: The Federal rules restrict any use of the information to criminally investigate or prosecute any alcohol or drug abuse patient.[facility] CenterIn the event this information is protected by the Federal Confidentiality of Alcohol and Drug Abuse Patient Records regulations: The Federal rules restrict any use of the information to criminally investigate or prosecute any alcohol or drug abuse patient.[facility] CenterIn the event this information is protected by the Federal Confidentiality of Alcohol and Drug Abuse Patient Records regulations: The Federal rules restrict any use of the information to criminally investigate or prosecute any alcohol or drug abuse patient.[facility] CenterIn the event this information is protected by the Federal Confidentiality of Alcohol and Drug Abuse Patient Records regulations: The Federal rules restrict any use of the information to criminally investigate or prosecute any alcohol or drug abuse patient.[facility] CenterIn the event this information is protected by the Federal Confidentiality of Alcohol and Drug Abuse Patient Records regulations: The Federal rules restrict any use of the information to criminally investigate or prosecute any alcohol or drug abuse patient.[facility] CenterIn the event this information is protected by the Federal Confidentiality of Alcohol and Drug Abuse Patient Records regulations: The Federal rules restrict any use of the information to criminally investigate or prosecute any alcohol or drug abuse patient.[facility] CenterIn the event this information is protected by the Federal Confidentiality of Alcohol and Drug Abuse Patient Records regulations: The Federal rules restrict any use of the information to criminally investigate or prosecute any alcohol or drug abuse patient.[facility] CenterIn the event this information is protected by the Federal Confidentiality of Alcohol and Drug Abuse Patient Records regulations: The Federal rules restrict any use of the information to criminally investigate or prosecute any alcohol or drug abuse patient.[facility] CenterIn the event this information is protected by the Federal Confidentiality of Alcohol and Drug Abuse Patient Records regulations: The Federal rules restrict any use of the information to criminally investigate or prosecute any alcohol or drug abuse patient.[facility] CenterIn the event this information is protected by the Federal Confidentiality of Alcohol and Drug Abuse Patient Records regulations: The Federal rules restrict any use of the information to criminally investigate or prosecute any alcohol or drug abuse patient.[facility] CenterIn the event this information is protected by the Federal Confidentiality of Alcohol and Drug Abuse Patient Records regulations: The Federal rules restrict any use of the information to criminally investigate or prosecute any alcohol or drug abuse patient.[facility] CenterIn the event this information is protected by the Federal Confidentiality of Alcohol and Drug Abuse Patient Records regulations: The Federal rules restrict any use of the information to criminally investigate or prosecute any alcohol or drug abuse patient.[facility] CenterIn the event this information is protected by the Federal Confidentiality of Alcohol and Drug Abuse Patient Records regulations: The Federal rules restrict any use of the information to criminally investigate or prosecute any alcohol or drug abuse patient.[facility] CenterIn the event this information is protected by the Federal Confidentiality of Alcohol and Drug Abuse Patient Records regulations: The Federal rules restrict any use of the information to criminally investigate or prosecute any alcohol or drug abuse patient.[facility] CenterIn the event this information is protected by the Federal Confidentiality of Alcohol and Drug Abuse Patient Records regulations: The Federal rules restrict any use of the information to criminally investigate or prosecute any alcohol or drug abuse patient.[facility] CenterIn the event this information is protected by the Federal Confidentiality of Alcohol and Drug Abuse Patient Records regulations: The Federal rules restrict any use of the information to criminally investigate or prosecute any alcohol or drug abuse patient.[facility] CenterIn the event this information is protected by the Federal Confidentiality of Alcohol and Drug Abuse Patient Records regulations: The Federal rules restrict any use of the information to criminally investigate or prosecute any alcohol or drug abuse patient.[facility] CenterIn the event this information is protected by the Federal Confidentiality of Alcohol and Drug Abuse Patient Records regulations: The Federal rules restrict any use of the information to criminally investigate or prosecute any alcohol or drug abuse patient.[facility] CenterIn the event this information is protected by the Federal Confidentiality of Alcohol and Drug Abuse Patient Records regulations: The Federal rules restrict any use of the information to criminally investigate or prosecute any alcohol or drug abuse patient.[facility] CenterIn the event this information is protected by the Federal Confidentiality of Alcohol and Drug Abuse Patient Records regulations: The Federal rules restrict any use of the information to criminally investigate or prosecute any alcohol or drug abuse patient.[facility] CenterIn the event this information is protected by the Federal Confidentiality of Alcohol and Drug Abuse Patient Records regulations: The Federal rules restrict any use of the information to criminally investigate or prosecute any alcohol or drug abuse patient.[facility] CenterIn the event this information is protected by the Federal Confidentiality of Alcohol and Drug Abuse Patient Records regulations: The Federal rules restrict any use of the information to criminally investigate or prosecute any alcohol or drug abuse patient.[facility] CenterIn the event this information is protected by the Federal Confidentiality of Alcohol and Drug Abuse Patient Records regulations: The Federal rules restrict any use of the information to criminally investigate or prosecute any alcohol or drug abuse patient.[facility] CenterIn the event this information is protected by the Federal Confidentiality of Alcohol and Drug Abuse Patient Records regulations: The Federal rules restrict any use of the information to criminally investigate or prosecute any alcohol or drug abuse patient.[facility] CenterIn the event this information is protected by the Federal Confidentiality of Alcohol and Drug Abuse Patient Records regulations: The Federal rules restrict any use of the information to criminally investigate or prosecute any alcohol or drug abuse patient.[facility] CenterIn the event this information is protected by the Federal Confidentiality of Alcohol and Drug Abuse Patient Records regulations: The Federal rules restrict any use of the information to criminally investigate or prosecute any alcohol or drug abuse patient.[facility] CenterIn the event this information is protected by the Federal Confidentiality of Alcohol and Drug Abuse Patient Records regulations: The Federal rules restrict any use of the information to criminally investigate or prosecute any alcohol or drug abuse patient.[facility] CenterIn the event this information is protected by the Federal Confidentiality of Alcohol and Drug Abuse Patient Records regulations: The Federal rules restrict any use of the information to criminally investigate or prosecute any alcohol or drug abuse patient.[facility] CenterIn the event this information is protected by the Federal Confidentiality of Alcohol and Drug Abuse Patient Records regulations: The Federal rules restrict any use of the information to criminally investigate or prosecute any alcohol or drug abuse patient.[facility] CenterIn the event this information is protected by the Federal Confidentiality of Alcohol and Drug Abuse Patient Records regulations: The Federal rules restrict any use of the information to criminally investigate or prosecute any alcohol or drug abuse patient.[facility] CenterIn the event this information is protected by the Federal Confidentiality of Alcohol and Drug Abuse Patient Records regulations: The Federal rules restrict any use of the information to criminally investigate or prosecute any alcohol or drug abuse patient.[facility] CenterIn the event this information is protected by the Federal Confidentiality of Alcohol and Drug Abuse Patient Records regulations: The Federal rules restrict any use of the information to criminally investigate or prosecute any alcohol or drug abuse patient.[facility] CenterIn the event this information is protected by the Federal Confidentiality of Alcohol and Drug Abuse Patient Records regulations: The Federal rules restrict any use of the information to criminally investigate or prosecute any alcohol or drug abuse patient.[facility] CenterIn the event this information is protected by the Federal Confidentiality of Alcohol and Drug Abuse Patient Records regulations: The Federal rules restrict any use of the information to criminally investigate or prosecute any alcohol or drug abuse patient.[facility] CenterIn the event this information is protected by the Federal Confidentiality of Alcohol and Drug Abuse Patient Records regulations: The Federal rules restrict any use of the information to criminally investigate or prosecute any alcohol or drug abuse patient.[facility] Reason for Visit (unrecogniz ed section and content) Reason Comments PT Discharge Specialty Diagnoses / Procedures Referred By Linn t Referred To Contact [facility] Diagnoses Abnormality of gait due to impairment of balance Procedures CONSULT TO PHYSICAL THERAPY PHYSICAL THERAPY EVALUATION HIGH COMPLEX 45 MINS Jojo Kaur MD [address] [place] [address] [facility] [place] [address] [place] [address] Referral ID Status Reason Start Date Expiration Date Visits Requested Visits Authorized [id number] Authorized PCP Requested Referral Auto-Generate d Referral [...] 6 mo Reason Comments Hospital Follow Up [facility] discharged Reason Comments Results Reason Comments Consult altered mental statu s Specialty Diagnoses / Procedures Referred By Contac t Referred To Contact Neurology Diagnoses Altered mental status, unspecified altered mental status type Procedures CONSULT TO NEUROLOGY OFFICE/OUTPATIENT NEW [facility] MDM 60-74 MINUTES Abdulaziz Caldera MD [address] [place] [address] Referral ID Status Reason Start Date Expiration Date V isits Requested Visits Authorized [id number] Closed PCP Requested Referral 01/01/2022 01/01/2023 1 [...] Nursing Plan of Care Update Reason Comments [facility] PT POC Reason Comments OT plan of care Reason Onset Date Comments Refill Request 07/25/2022 Reason Comments Home Health-Nursing Update Reason Onset Date Comments Anticoagulation 07/31/2022 Specialty Diagnoses / Procedures Referred By Linn carrillo Referred To Contact Ent - Otolaryngology Diagnoses Chronic frontal sinusitis Procedures CONSULT TO ENT OFFICE/OUTPATIENT NEW [facility]IGH MDM 60-74 MINUTES Abdulaziz Caldera MD [address] [place] [address] Referral ID Status Reason Start Date Expiration Date V isits Requested Visits Authorized [id number] Closed PCP Requested Referral 07/12/2022 07/12/2023 1 [...] Care Teams (unrecognized sec tion and content) Graphics Manager Relationship Specialty Start Date End Date Abdulaziz Caldera MD [address] [place], [place] [id number] PCP - General Family Practice 11/23/20 Graphics Manager Relationship Specialty Start Date End Date Abdulaziz Caldera MD [address] [place], [place] [id number] PCP - General Family Practice 11/23/20 Graphics Manager Relationship Specialty Start Date End Date Abdulaziz Caldera MD [address] [place] [address] PCP - General Family Practice 11/23/20 Graphics Manager Relationship Specialty Start Date End Date Abdulaziz Caldera MD [address] [place] [address] PCP - General Family Practice 11/23/20 Graphics Manager Relationship Specialty Start Date End Date Abdulaziz Caldera MD [facility] [place] [address] PCP - General Family Practice 11/23/20 Graphics Manager Relationship Specialty Start Date End Date Abdulaziz Caldera MD [facility] [place] [address] PCP - General Family Practice 11/23/20 Graphics Manager Relationship Specialty Start Date End Date Abdulaziz Caldera MD [facility] [place] [address] PCP - General Family Practice 11/23/20 Graphics Manager Relationship Specialty Start Date End Date Abdulaziz Caldera MD [facility] [place] [address] PCP - General Family Practice 11/23/20 Graphics Manager Relationship Specialty Start Date End Date Abdulaziz Caldera MD [facility] [place] [address] PCP - General Family Practice 11/23/20 Graphics Manager Relationship Specialty Start Date End Date Abdulaziz Caldera MD [facility] [place] [address] PCP - General Family Practice 11/23/20 Graphics Manager Relationship Specialty Start Date End Date Abdulaziz Caldera MD [facility] [place] [address] PCP - General Family Practice 11/23/20 Graphics Manager Relationship Specialty Start Date End Date Abdulaziz Caldera MD [address] [place] [address] PCP - General Family Practice 11/23/20 Graphics Manager Relationship Specialty Start Date End Date Abdulaziz Caldera MD [address] [place] [address] PCP - General Family Practice 11/23/20 Graphics Manager Relationship Specialty Start Date End Date Abdulaziz Caldera MD [address] [place] [address] PCP - General Family Practice 11/23/20 Graphics Manager Relationship Specialty Start Date End Date Abdulaziz Caldera MD [address] [place] [address] PCP - General Family Practice 11/23/20 Graphics Manager Relationship Specialty Start Date End Date Abdulaziz Caldera MD [address] [place] [address] PCP - General Family Practice 11/23/20 Graphics Manager Relationship Specialty Start Date End Date Abdulaziz Caldera MD [address] [place] [address] PCP - General Family Practice 11/23/20 Graphics Manager Relationship Specialty Start Date End Date Abdulaziz Cladera MD [address] [place] [address] PCP - General Family Practice 11/23/20 Graphics Manager Relationship Specialty Start Date End Date Abdulaziz Caldera MD [address] [place] [address] PCP - General Family Practice 11/23/20 Graphics Manager Relationship Specialty Start Date End Date Abdulaziz Caldera MD [address] [place] [address] PCP - General Family Practice 11/23/20 Graphics Manager Relationship Specialty Start Date End Date Abdulaziz Caldera MD [address] [place] [address] PCP - General Family Practice 11/23/20 Graphics Manager Relationship Specialty Start Date End Date Abdulaziz Caldera MD [address] [place] [address] PCP - General Family Practice 11/23/20 Graphics Manager Relationship Specialty Start Date End Date Abdulaziz Caldera MD [address] [place] [address], [place] [address] PCP - General Family Medicine 11/23/20 Graphics Manager Relationship Specialty Start Date End Date Abdulaziz Caldera MD [facility] [place] [address] PCP - General Family Medicine 11/23/20 Graphics Manager Relationship Specialty Start Date End Date Abdulaziz Caldera MD [address] [place] [address] PCP - General Family Medicine 11/23/20 Graphics Manager Relationship Specialty Start Date End Date Abdulaziz Caldera MD [address] [place] [address] PCP - General Family Medicine 11/23/20 Graphics Manager Relationship Specialty Start Date End Date Abdulaziz Caldera MD [address] [place] [address] PCP - General Family Medicine 11/23/20 Graphics Manager Relationship Specialty Start Date End Date Abdulaziz Caldera MD [address] [place] [address] PCP - General Family Medicine 11/23/20 Graphics Manager Relationship Specialty Start Date End Date Abdulaziz Caldera MD [address] [place] [address] PCP - General Family Medicine 11/23/20 Graphics Manager Relationship Specialty Start Date End Date Abdulaziz Caldera MD [address] [place] [address] PCP - General Family Medicine 11/23/20 Graphics Manager Relationship Specialty Start Date End Date Abdulaziz Caldera MD [address] [place] [address] PCP - General Family Medicine 11/23/20 Graphics Manager Relationship Specialty Start Date End Date Abdulaziz Caldera MD [address] [place] [address] PCP - General Family Medicine 11/23/20 Graphics Manager Relationship Specialty Start Date End Date Abdulaziz Caldera MD [address] [place] [address] PCP - General Family Medicine 11/23/20 Graphics Manager Relationship Specialty Start Date End Date Abdulaziz Caldera MD [address] [place] [address] PCP - General Family Medicine 11/23/20 Graphics Manager Relationship Specialty Start Date End Date Abdulaziz Caldera MD [address] [place] [address] PCP - General Family Medicine 11/23/20 Graphics Manager Relationship Specialty Start Date End Date Abdulaziz Caldera MD [address] [place] [address] PCP - General Family Medicine 11/23/20 Graphics Manager Relationship Specialty Start Date End Date Abdulaziz Caldera MD [address] [place] [address] PCP - General Family Medicine 11/23/20 Graphics Manager Relationship Specialty Start Date End Date Abdulaziz Caldera MD [address] [place] [address] PCP - General Family Medicine 11/23/20 Graphics Manager Relationship Specialty Start Date End Date Abdulaziz Caldera MD [address] [place] [address] PCP - General Family Medicine 11/23/20 Graphics Manager Relationship Specialty Start Date End Date Abdulaziz Caldera MD [address] [place] [address] PCP - General Family Medicine 11/23/20 Graphics Manager Relationship Specialty Start Date End Date Abdulaziz Caldera MD [address] [place] [address] PCP - General Family Medicine 11/23/20 Team [...] MD Admit Provider, Attending Provi skip Active Graphics Manager Relationship Specialty Start Date End Date Abdulaziz Caldera MD [address] [place] [address] PCP - General Family Medicine 11/23/20 Team [...] MD Admit Provider, Attending Prov ider Active Graphics Manager Relationship Specialty Start Date End Date Abdulaziz Caldera MD [address] [place] [address] PCP - General Family Medicine 11/23/20 Team [...] Rendon MD Other Provider Active Dr. Caryl Mcdemrott MD Attending Provider Active Team Status: Active [...] Yisel Rendon MD Other Provider Active Dr. Ogla Lidia Rasheed MD Other Provider Active Dr. [...] Ref erring Provider Active Ann Rodríguez TECHNOLOGY SPECIALIST, TECHNOLOGY SPECIALIST-C Attending Provider Active Team Status: Active [...] 2025 End: February 11, 2025 Kuldip Cosby TECHNOLOGY SPECIALIST-C Primary Care Provider Active Start: February [...] Active Start: February 03, 2025 Kuldip Cosby TECHNOLOGY SPECIALIST-C Primary Care Provider Active Start: February [...] Role/Relationship Status Dates Kuldip Cosby , TECHNOLOGY SPECIALIST-C Primary Care Provider Active Start: February 03, 2025 Dr. Aneesh Ac MD Attending Provider Active S tart: February 03, 2025 Team Status: Active Member Role/Relationship Status Dates Dr. Nicholas Galarza DO Emergency Provider Active Start: February 04, 2025 Kuldip Cosby TECHNOLOGY SPECIALIST-C Primary Care Provider Active Start: February [...] February 04, 2025 Kuldip Cosby , TECHNOLOGY SPECIALIST-C Primary Care Provider Active Start: February [...] February 05, 2025 Kuldip Cosby , TECHNOLOGY SPECIALIST-C Primary Care Provider Active Start: February [...] February 06, 2025 Kuldip Cosby , TECHNOLOGY SPECIALIST-C Primary Care Provider Active Start: February [...] February 07, 2025 Kuldip Cosby , TECHNOLOGY SPECIALIST-C Primary Care Provider Active Start: February [...] Status: Active Member Role/Relationship Status Dates Dr. iNcholas Galarza DO Emergency Provider Active Start: February 08, 2025 Kuldip Cosby , TECHNOLOGY SPECIALIST-C Primary Care Provider Active Start: February [...] February 09, 2025 Kuldip Cosby , TECHNOLOGY SPECIALIST-C Primary Care Provider Active Start: February [...] Start: February 09, 2025 Kuldip Cosby TECHNOLOGY SPECIALIST-C Primary Care Provider Active Start: February [...] Start: February 10, 2025 Kuldip Cosby TECHNOLOGY SPECIALIST-C Primary Care Provider Active Start: February [...] Start: February 10, 2025 Kuldip Cosby TECHNOLOGY SPECIALIST-C Primary Care Provider Active Start: February [...] Role/Relationship Status Dates Kuldip Cosby , TECHNOLOGY SPECIALIST-C Primary Care Provider Active Start: February [...] February 10, 2025 Kuldip Cosby , TECHNOLOGY SPECIALIST-C Primary Care Provider Active Start: February [...] Provider Active Start: February 10, 2025 Kuldip Cosyb , TECHNOLOGY SPECIALIST-C Primary Care Provider Active Start: February [...] February 11, 2025 Kuldip Cosby , TECHNOLOGY SPECIALIST-C Primary Care Provider Active Start: February [...] February 11, 2025 Kuldip Cosby , TECHNOLOGY SPECIALIST-C Primary Care Provider Active Start: February [...] Role/Relationship Status Dates Kuldip Cosby , TECHNOLOGY SPECIALIST-C Primary Care Provider Active Start: February 15, 2025 Walter MAYORGA MD Attending Provider Active S tart: February 15, 2025 Team Status: Active Member Role/Relationship Status Dates Kuldip Cosby , TECHNOLOGY SPECIALIST-C Primary Care Provider Active Start: February 16, 2025 Walter MAYORGA MD Attending Provider Active S tart: February 16, 2025 Team Status: Active Member Role/Relationship Status Dates Kuldip Cosby , TECHNOLOGY SPECIALIST-C Primary Care Provider Active Start: February 17, 2025 Walter MAYORGA MD Attending Provider Active S tart: February 17, 2025 Team Status: Active Member Role/Relationship Status Dates Kuldip Tarrant , TECHNOLOGY SPECIALIST-C Primary Care Provider Active Start: February 18, 2025 Walter MAYORGA MD Attending Provider Active S tart: February 18, 2025 Team Status: Active Member Role/Relationship Status Dates Kuldip Harjeet , TECHNOLOGY SPECIALIST-C Primary Care Provider Active Start: February 22, 2025 Walter MAYORGA MD Attending Provider Active S tart: February 22, 2025 Team Status: Active Member Role/Relationship Status Dates Kuldip Tarrant , TECHNOLOGY SPECIALIST-C Primary Care Provider Active Start: February 25, 2025 Walter MAYORGA MD Attending Provider Active S tart: February 25, 2025 Team Status: Active Member Role/Relationship Status Dates Kuldip Harjeet , TECHNOLOGY SPECIALIST-C Primary Care Provider Active Start: February 26, 2025 Walter MAYORGA MD Attending Provider Active S tart: February 26, 2025 Team Status: Inactive Member Role/Relationship Status Dates Kuldip Croftley , TECHNOLOGY SPECIALIST-C Primary Care Provider Active Start: February 27, 2025 End: February 28, 2025 Dr. Bennett Troncoso , Emergency Provider Active Start: February 27, 2025 End: February 28, 2025 Team Status: Active Member Role/Relationship Status Dates Dr. Walter Becker Sr., DO Primary Care Provider Active Team Status: Active Member Role/Relationship Status Dates Kuldip Tarrant , TECHNOLOGY SPECIALIST-C Primary Care Provider Active Start: February 03, 2025 Dr. Aneesh Ac MD Attending Provider Active S tart: February 03, 2025 Dr. Kee Mejia DPM Referring Provider Active Start: February 03, 2025 Team Status: Active Member Role/Relationship Status Dates Dr. Nicholas Galarza DO Emergency Provider Active Start: February 04, 2025 Kuldip Cosby , TECHNOLOGY SPECIALIST-C Primary Care Provider Active Start: February [...] Role/Relationship Status Dates Kuldip Cosby , TECHNOLOGY SPECIALIST-C Primary Care Provider Active Start: March 03, 2025 Walter MAYORGA MD Attending Provider Active S tart: March 03, 2025 Team Status: Inactive Member Role/Relationship Status Dates Kuldip Cosby , TECHNOLOGY SPECIALIST-C Referring Provider Active Sta rt: March 03, [...] Start: February 09, 2025 Kuldip Cosby TECHNOLOGY SPECIALIST-C Primary Care Provider Active Start: February [...] February 10, 2025 Kuldip Cosby , TECHNOLOGY SPECIALIST-C Primary Care Provider Active Start: February [...] Start: February 11, 2025 Kuldip Cosby TECHNOLOGY SPECIALIST-C Primary Care Provider Active Start: February 11, 2025 Dr. Karen Aly MD Admit Provider Active St art: February 11, 2025 Dr. Karen Aly MD Other Provider Active St art: February 11, 2025 Dr. Kee Mejia DPM Other Provider Active Start: February 11, 2025 Dr. Hugo Cervantes MD Referring Provider Active Start: February 11, 2025 Dr. Hugo Ceravntes MD Other Provider Active Start: February 11, 2025 Dr. Aneesh Ac MD Other Provider Active Start : February 11, 2025 Dr. Smith Leija MD Other Provider Active Start: February 11, 2025 DENIA Baird Attending Provider Active Star t: February 11, 2025 Team Status: Active Member Role/Relationship Status Dates Kuldip Cosby TECHNOLOGY SPECIALIST-C Primary Care Provider Active Start: February 22, 2025 Walter MAYORGA MD Attending Provider Active S tart: February 22, 2025 Walter MAYORGA MD Referring Provider Active S tart: February 22, 2025 Team Status: Inactive Member Role/Relationship Status Dates Kuldip Cosby TECHNOLOGY SPECIALIST-C Primary Care Provider Active Start: February [...] End: March 22, 2025 Deangelo Thomson NP TECHNOLOGY SPECIALIST-C Attending Provider Active S tart: March 22, [...] End: February 11, 2025 Kuldip Cosby , TECHNOLOGY SPECIALIST-C Primary Care Provider Active Start: February [...] February 03, 2025 Kuldip Cosby , TECHNOLOGY SPECIALIST-C Primary Care Provider Active Start: February [...] Role/Relationship Status Dates Kuldip Cosby , TECHNOLOGY SPECIALIST-C Primary Care Provider Active Start: February 03, 2025 Dr. Aneesh Ac MD Attending Provider Active S tart: February 03, 2025 Dr. Kee Mejia DPM Referring Provider Active Start: February 03, 2025 Team Status: Active Member Role/Relationship Status Dates Dr. Nicholas Galarza DO Emergency Provider Active Start: February 04, 2025 Kuldip Cosby , TECHNOLOGY SPECIALIST-C Primary Care Provider Active Start: February [...] Active Start: February 06, 2025 Kuldip Cosby TECHNOLOGY SPECIALIST-C Primary Care Provider Active Start: February [...] Active Start: February 07, 2025 Kuldip Cosby TECHNOLOGY SPECIALIST-C Primary Care Provider Active Start: February [...] Start: February 08, 2025 Kuldip Cosby TECHNOLOGY SPECIALIST-C Primary Care Provider Active Start: February [...] February 10, 2025 Kuldip Cosby , TECHNOLOGY SPECIALIST-C Primary Care Provider Active Start: February [...] February 11, 2025 Kuldip Cosby , TECHNOLOGY SPECIALIST-C Primary Care Provider Active Start: February [...] Role/Relationship Status Dates Kuldip Cosby , TECHNOLOGY SPECIALIST-C Primary Care Provider Active Start: February 15, 2025 Walter MAYORGA MD Attending Provider Active S tart: February 15, 2025 Team Status: Active Member Role/Relationship Status Dates Kuldip Cosby , TECHNOLOGY SPECIALIST-C Primary Care Provider Active Start: February 16, 2025 Walter MAYORGA MD Attending Provider Active S tart: February 16, 2025 Team Status: Active Member Role/Relationship Status Dates Kuldip Croftley , TECHNOLOGY SPECIALIST-C Primary Care Provider Active Start: February 17, 2025 Walter MAYORGA MD Attending Provider Active S tart: February 17, 2025 Team Status: Active Member Role/Relationship Status Dates Kuldip Tarrant , TECHNOLOGY SPECIALIST-C Primary Care Provider Active Start: February 18, 2025 Walter MAYORGA MD Attending Provider Active S tart: February 18, 2025 Team Status: Active Member Role/Relationship Status Dates Kuldip Tarrant , TECHNOLOGY SPECIALIST-C Primary Care Provider Active Start: February 22, 2025 Walter MAYORGA MD Attending Provider Active S tart: February 22, 2025 Walter MAYORGA MD Referring Provider Active S tart: February 22, 2025 Team Status: Active Member Role/Relationship Status Dates Kuldip Harjeet , TECHNOLOGY SPECIALIST-C Primary Care Provider Active Start: February 25, 2025 Walter MAYORGA MD Attending Provider Active S tart: February 25, 2025 Team Status: Active Member Role/Relationship Status Dates Kuldip Harjeet , TECHNOLOGY SPECIALIST-C Primary Care Provider Active Start: February 26, 2025 Walter MAYORGA MD Attending Provider Active S tart: February 26, 2025 Team Status: Inactive Member Role/Relationship Status Dates Kuldip Harjeet , TECHNOLOGY SPECIALIST-C Primary Care Provider Active Start: February 27, 2025 End: February 28, 2025 Dr. Bennett Troncoso , Attending Provider Active Start: February 27, 2025 End: February 28, 2025 Dr. Bennett Troncoso DO Emergency Provider Active Start: February 27, 2025 End: February 28, 2025 Team Status: Active Member Role/Relationship Status Dates Kuldip Harjeet , TECHNOLOGY SPECIALIST-C Primary Care Provider Active Start: March 03, 2025 Walter MAYORGA MD Attending Provider Active S tart: March 03, 2025 Team Status: Inactive Member Role/Relationship Status Dates Kuldip Harjeet , TECHNOLOGY SPECIALIST-C Referring Provider Active Sta rt: March 03, [...] March 22, 2025 Deangelo Thomson NP, TECHNOLOGY SPECIALIST-C Attending Provider Active S tart: March 22, [...] content) DATE CREATED AUTHOR 01/02/2022 [facility] DATE CREATED AUTHOR AUTHOR'S ORGANIZ ATION 02/04/2022 [facility] DATE CREATED AUTHOR AUTHOR'S ORGANIZ ATION 04/19/2022 [facility] DATE CREATED AUTHOR AUTHOR'S ORGANIZ ATION 11/07/2024 [facility] DATE CREATED AUTHOR AUTHOR'S ORGANIZ ATION 05/26/2025 [facility] FOR RECORDS PERTAINING TO PATIENTS WHO ARE [...] BE BASED ON THE PRIMARY CLINICAL RECORDS. [facility] [employer] [facility]. provides no warranty or guarantee of the accuracy or completeness of information in this document.
[2025-06-08 09:08] LABS: Hematocrit 34.5 % (40-54); Hemoglobin 11.5 g/dL (13.0-16.5); Mean Corp Hgb Conc 33.3 g/dL (32-36); Mean Corpuscular Volume 82.3 fL (80-94); Mean Platelet Vol. 9.6 fl (6.2-12.0); Platelet Count 247 K/mm3 (150-450); RBC Distribution Width CV 13.5 % (11.6-14.6); RBC Distribution Width SD 40.3 fl (35.1-43.9); Red Blood Count 4.19 M/mm3 (4.6-6.2); White Blood Count 10.8 K/mm3 (4.4-11.0)
[2025-06-08 09:32] LABS: AST(SGOT) 12 U/L (<=37); Alanine Aminotransfer ALT/SGPT 15 U/L (<=46); Albumin, Serum 3.6 g/dL (3.4-4.8); Alkaline Phosphatase 106 U/L (40-129); Anion Gap 13 (5-15); BUN 39 mg/dL (4-19); BUN/Creat Ratio 29.8 RATIO (10-20); Calcium,Total 9.5 mg/dL (7.6-11.0); Carbon Dioxide 22.4 mmol/L (21.0-32.0); Chloride 106 mmol/L (98-108); Globulin 2.3 g/dL (2.2-4.2); Glucose 149 mg/dL (70-99); Potassium 3.1 mmol/L (3.3-5.1)
== END ==
LOC: OLS.ACH 04:00
PROVIDERS: PCP Internal Medicine; Referring Provider Internal Medicine; Visit Provider Internal Medicine
DX: E11.40 Type 2 diabetes mellitus with diabetic neuropathy, unspecified (principal); E11.22 Type 2 diabetes mellitus with diabetic chronic kidney disease; N18.31 Chronic kidney disease, stage 3a
CPT/HCPCS: 36415; 80053; 83036; 85027

== ENCOUNTER → 2025-06-14 05:00 | Outpatient (REF) | payer MEDICARE, OTHER, SELFPAY ==
[2025-06-14 08:22] LABS: Potassium 3.9 mmol/L (3.3-5.1)
== END ==
LOC: OLS.ACH 05:00
PROVIDERS: PCP Internal Medicine; Visit Provider Internal Medicine
DX: E87.6 Hypokalemia (principal)
CPT/HCPCS: 36415; 84132

== ENCOUNTER 2025-06-15 13:03 | Inpatient (IN) | payer MEDICARE, OTHER, SELFPAY ==
[2025-06-15] VITALS (8 sets, daily range): BP systolic 93–145; BP diastolic 49–94; PULSE 60–80; RESP 16–18; TEMP 36.6–36.8; O2SAT 95–100; BMI 32.3; BMI 31.7
--- NOTE | 2025-06-15 13:52 | RAD_ITS ---
PROCEDURE: FOOT MIN 3 VIEWS 06/15/2025 REASON FOR EXAM: 5TH TOE/FOOT INFECTION TECHNIQUE: Procedure Code: RADFO Modality: DX Procedure: FOOT MIN 3 VIEWS Laterality: Left foot COMPARISON: February 27, 2025. FINDINGS: Bones: The patient is status post resection of the distal portion of the 5th metatarsal as well as the base of the proximal phalanx of the 5th toe. There is evidence of bony destruction of the distal portion of the proximal phalanx as well as middle phalanx of the 5th toe with overlying soft tissue swelling and ulceration. Osteomyelitis should be ruled out. Joints: There is dense sclerosis at the base of the metatarsal suggestive of Charcot's deformity. Soft tissues: Diffuse soft tissue swelling. Other: RAD/Foot min 3 Views IMPRESSION: Findings suggestive of osteomyelitis involving the distal portion of the proxim al phalanx of the 5th toe with evidence of soft tissue ulceration and swelling. Degenerative changes of the tarsal bone suggestive of possible Charcot's deform ity. Reading Location: [facility]
--- NOTE | 2025-06-15 14:05 | EX.ED.DYSGE1 ---
HPI History of Present Illness Chief Complaint: Wound Check Narrative Narrative: Chief complaint and HPI: 79-year-old male with past medical history of DM2, HTN, HLD, atrial fibrillation on Eliquis presents for evaluation of left fifth digit infection. History mostly taken by and medical record. On chart review, patient had a left fifth lateral foot ulceration to and including bone and Cinthia. He had surgery with Dr. Mejia on 02/05/2025 in which I reviewed the operative note. He also follows with vascular surgery as he had an angiogram with left PT and AT angioplasty on 02/10/25 due to nonhealing left toe wound with associated osteomyelitis. states that patient has been going to wound care with a wound VAC since the operations. She states that the wound care person evaluated the toe today and felt that it needed surgical debridement in which she was sent to the emergency department. Patient denies any pain as he has neuropathy and cannot feel his feet. He denies any fever, chills, abdominal pain, nausea, vomiting. states she does not frequently look at the foot and therefore she is unable to tell me if it is more red or swollen. Review of systems: See HPI Medications: As listed on the chart Allergies: As listed on the chart PFSH: Per chart Vital signs: As listed on the chart. Reviewed. Physical exam: Gen: A&O, NAD Head: Normocephalic, atraumatic Eyes: No sclera icterus, conjunctiva clear ENT: Moist mucous membranes CV: RRR, no murmurs Resp: Lungs CTA BL, no w/r/c GI: Abd soft, non-distended, non-tender, no r/r/g Musc: Moves all extremities, patient has a wound to the lateral foot near the fifth digit. The fifth digit is mildly swollen and erythematous. The wound has clear drainage with areas of necrosis. Pulses difficult to palpate bilaterally. DP/PT pulse dopplerable are on the right. PT but not DP pulse dopplerable on the left. Psych: Cooperative, appropriate mood and affect [facility] Medical History MRSA (methicillin resistant staph aureus) culture positive History of stress test History of echocardiogram Cardiology follow-up encounter Uses wheelchair Difficulty swallowing History of ulceration History of GI bleed History of renal disease Prostate disease Pulmonary embolism High cholesterol Atrial tachycardia Anxiety Depression Kidney stones GI bleed Non-smoker Atrial fibrillation AAA (abdominal aortic aneurysm) Dementia Bacteremia Subtherapeutic international normalized ratio (INR) UTI (urinary tract infection) Presence of cardiac pacemaker Sick sinus syndrome Anemia Second degree AV block, Mobitz type II Supratherapeutic INR Syncope Acute encephalopathy Weakness Confusion History of pulmonary embolism NSTEMI, initial episode of care Valvular heart disease Amputation of right great toe Leukocytosis Hyperkalemia COVID-19 Ureterolithiasis Diabetes Aortic aneurysm without rupture HTN (hypertension) Lactic acidosis Upper gastrointestinal bleed Diabetic neuropathy Osteomyelitis Ulcer of right great toe due to diabetes mellitus Pulmonary emboli HLD (hyperlipidemia) RBBB (right bundle 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) Home Medications ?Medication ?Instructions ?Recorded ?Last Taken ?Type losartan 50 mg tablet 50 mg PO DAILY blood pressure 03/24/18 06/01/24 History atorvastatin 40 mg tablet 40 mg PO QHS cholesterol 05/22/18 05/31/24 History tamsulosin 0.4 mg capsule 0.4 mg PO QHS PROSTATE 03/02/22 05/31/24 History pantoprazole 40 mg tablet,delayed 40 mg PO BID #60 tabs 02/05/23 06/01/24 Rx release sucralfate 1 gram tablet 1 g PO 0700,1100,1600 #90 tabs 02/05/23 06/01/24 Rx melatonin 3 mg tablet 3 mg PO QHS PRN Insomnia 02/10/23 02/10/23 History memantine 10 mg tablet 10 mg PO BID #0 tabs 02/13/23 06/01/24 Rx bisacodyl 10 mg rectal suppository 10 mg [place] DAILY PRN constipation 05/30/23 Unknown History ferrous sulfate 325 mg (65 mg 325 mg PO DAILY 10/07/23 06/01/24 History iron) tablet apixaban 5 mg tablet (Eliquis) 5 mg PO BID #60 tabs 03/03/24 05/30/24 Rx ipratropium 0.5 mg-albuterol 3 mg 3 ml inhalation Q4H PRN shortness 02/02/25 Unknown History (2.5 mg base)/3 mL nebulization of breath soln metoprolol succinate 25 mg capsule 25 mg PO DAILY 02/02/25 Unknown History sprinkle, ext. release 24 hr (Kapspargo Sprinkle) clopidogrel 75 mg tablet 75 mg PO DAILY 90 days #0 tabs 02/11/25 Unknown Rx arginine 7 gram-glutamine 7 PO BID 02/27/25 Unknown History gram-calcium HMB 1.5 gram oral powder pack (Luis) insulin glargine 100 unit/mL (3 18 unit subcut DAILY diabetes 02/27/25 Unknown History mL) subcutaneous pen (Lantus Solostar U-100 Insulin) paroxetine HCl 20 mg tablet (Paxil) 20 mg PO DAILY 02/27/25 Unknown History insulin lispro 100 unit/mL 1 sliding scale dose subcut 03/03/25 Unknown History subcutaneous pen (Humalog KwikPen USEASDIRECTD (U-100) Insulin) acetaminophen 325 mg tablet 650 mg PO BID PAIN AND FEVER 03/22/25 Unknown History cholecalciferol (vitamin D3) 1,250 1,250 mcg PO QWEEK SUPPLEMENT 03/22/25 Unknown History mcg (50,000 unit) tablet guaifenesin 100 mg/5 mL oral liquid 200 mg PO Q6H PRN 03/22/25 Unknown History loperamide 2 mg tablet 2 mg PO Q4H PRN 03/22/25 Unknown History magnesium hydroxide 400 mg/5 mL 30 ml PO QDAY PRN 03/22/25 Unknown History oral suspension (Milk of Magnesia) Allergy/AdvReac Type Severity Reaction Status Date / Time propofol AdvReac Other Verified 06/15/25 13:10 Family History Mother Heart disease Diabetes Hypertension Father Heart disease Surgical History History of AAA (abdominal aortic aneurysm) repair History of foot surgery Hx of abdominal surgery H/O aortic valve repair History of thoracic aortic aneurysm repair Social History (Updated 06/15/25 @ 13:49 by Yaritza Landry) housing: house current occupational status: retired Smoking Status: Never smoker alcohol intake: never substance use type: does not use EXAM Physical Exam Const Vital Signs: 06/15/25 13:05 06/15/25 13:48 06/15/25 14:10 Temperature 98.2 F 98 F 98.3 F Temperature Source Oral Oral Oral Pulse Rate 60 60 80 Respiratory Rate 18 16 16 Blood Pressure 93/49 L 118/72 128/66 H Blood Pressure Mean 63 87 86 Pulse Ox 95 96 99 Oxygen Delivery Method Room Air Room Air Room Air 06/15/25 15:00 06/15/25 15:52 Temperature 98 F 98 F Temperature Source Oral Pulse Rate 69 69 Respiratory Rate 16 16 Blood Pressure 145/82 H 145/82 H Blood Pressure Mean 103 103 Pulse Ox 98 98 Oxygen Delivery Method Room Air MDM MDM MDM Narrative Medical decision making narrative: 79-year-old male with past medical history of DM2, HTN, HLD, atrial fibrillation on Eliquis presents for evaluation of left fifth digit infection. History mostly taken by and medical record. See HPI. In January patient had surgery with podiatry as well as vascular surgery due to nonhealing left toe wound with associated osteomyelitis. Wound care evaluated the area today and had concerns re-infection. See physical exam findings. Differential diagnosis includes but is not limited to cellulitis, osteomyelitis, bacteremia. NS bolus ordered. Laboratory workup ordered including x-ray of the foot. CBC with leukocytosis of 14.7. Patient has baseline anemia of 12.4. Lactic acid unremarkable. CRP elevated at 13.7 however this is downtrending from April at 138. ESR unremarkable. X-ray of the foot was personally reviewed interpreted by me, ED physician. No fracture or dislocation. Partial resection of the fifth digit. Radiology in agreement. Per radiology findings suggestive of osteomyelitis involving the distal portion of the proximal phalanx of the fifth toe with evidence of soft tissue ulceration and swelling. Vancomycin and Zosyn ordered. BMP shows slightly worsened CKD with a creatinine of 1.52. Patient will warrant admission to the hospital. Will consult podiatry and hospitalist. Patient was discussed with Dr. Mejia. He will see the patient in consult and recommended that vascular will likely need to be involved. He will personally reach out to Dr. Sutton. Patient was discussed with Dr. Sutton. Not accepting admission at this time as there is no vascular surgery on-call and therefore he does not know if the patient will require transfer. Patient follows with Dr. Ac therefore I personally consulted him. Patient was discussed. He is currently not in this week however he will have his team see the patient, Meghana. He states that the patient does not need to be transferred and that he can be admitted to our hospital for IV antibiotics. Dr. Sutton was made aware and accepted admission. Impression: 1. Osteomyelitis of the left fifth toe 2. Chronic left foot wound Lab Data Labs: Laboratory Results - last 24 hr 06/15/25 06/15/25 06/15/25 13:43 13:44 14:38 WBC 14.7 H RBC 4.67 Hgb 12.4 L Hct 39.0 L MCV 83.5 MCH 26.6 L MCHC 31.8 L RDW Std Deviation 42.0 RDW Coeff of Nathaniel 13.9 Plt Count 255 MPV 9.3 Immature Gran % (Auto) 1.000 H Neut % (Auto) 76.2 H Lymph % (Auto) 12.7 L [place] % (Auto) 6.4 Eos % (Auto) 3.2 Baso % (Auto) 0.5 Absolute Neuts (auto) 11.2 H Absolute Lymphs (auto) 1.87 Nucleated RBC % 0 ESR 19 Sodium Cancelled 137 Potassium Cancelled 5.0 Chloride Cancelled 102 Carbon Dioxide Cancelled 25.4 Anion Gap Cancelled 10 BUN Cancelled 47 H Creatinine Cancelled 1.52 H Estim Creat Clear Calc 53.18 Est GFR (MDRD) Non-Af Cancelled 47 L BUN/Creatinine Ratio Cancelled 31.1 H Glucose Cancelled 191 H Lactic Acid 1.8 Calcium Cancelled 9.7 C-React Prot Ext Range 13.70 H Radiography Diagnostic Testing: Clinical Impression(s) from Imaging Studies Foot X-Ray 06/15/25 13:52 IMPRESSION: Findings suggestive of osteomyelitis involving the distal portion of the proximal phalanx of the 5th toe with evidence of soft tissue ulceration and swelling. Degenerative changes of the tarsal bone suggestive of possible Charcot's deformity. Reading Location: [id number] Discharge Plan Triage Chief Complaint: Wound Check ED Provider: Kwame Contreras Dx/Rx/DC Orders Prescriptions: No Action ferrous sulfate 325 mg (65 mg iron) tablet 325 mg PO DAILY insulin lispro [Humalog KwikPen Insulin] 100 unit/mL insulin pen 1 sliding scale dose subcut USEASDIRECTD guaifenesin 100 mg/5 mL liquid 200 mg PO Q6H PRN loperamide 2 mg tablet 2 mg PO Q4H PRN Rx Instructions: administer after each loose stool until symptoms controlled; do not exceed 8 mg per 24 hrs magnesium hydroxide [Milk of Magnesia] 400 mg/5 mL suspension 30 ml PO QDAY PRN losartan 50 MG tablet 50 mg PO DAILY atorvastatin 40 MG tablet 40 mg PO QHS tamsulosin 0.4 mg capsule 0.4 mg PO QHS Patient Comments: TAKE 1 CAPSULE BY MOUTH EVERYDAY AT BEDTIME sucralfate 1 gram Tablet 1 g PO 0700,1100,1600 Qty: 90 2RF pantoprazole 40 mg tablet,delayed release (DR/EC) 40 mg PO BID Qty: 60 2RF melatonin 3 mg Tablet 3 mg PO QHS PRN (Reason: Insomnia) Patient Comments: PRN PER INTERMEDIATE MAR. memantine 10 mg Tablet 10 mg PO BID Qty: 0 0RF acetaminophen 325 mg tablet 650 mg PO BID bisacodyl 10 mg suppository 10 mg WV DAILY PRN (Reason: constipation) cholecalciferol (vitamin D3) 1,250 mcg (50,000 unit) tablet 1,250 mcg PO QWEEK ipratropium-albuterol 0.5 mg-3 mg(2.5 mg base)/3 mL solution for nebulization 3 ml inhalation Q4H PRN (Reason: shortness of breath) Patient Comments: [NO ORIGINAL SIG] Kapspargo Sprinkle 25 mg capsule,sprinkle,ER 24hr 25 mg PO DAILY clopidogrel 75 mg Tablet 75 mg PO DAILY 90 Days Qty: 0 0RF Luis 7-7-1.5 gram powder in packet PO BID Rx Instructions: packet orally; give 1 packet orally by mouth bid paroxetine HCl [Paxil] 20 mg tablet 20 mg PO DAILY insulin glargine [Lantus Solostar U-100 Insulin] 100 UNITS/ML insulin pen 18 unit subcut DAILY Eliquis 5 mg tablet 5 mg PO BID Qty: 60 11RF Primary Care Provider: Rosita Littlejohn,Walter Referrals: Rosita Littlejohn,Walter, [Primary Care Provider, [facility]] Print Language: Anguillan
[2025-06-15 14:08] LABS: Hematocrit 39.0 % (40-54); Hemoglobin 12.4 g/dL (13.0-16.5); Immature Granulocytes Count 0.140 X10^3/uL (0.0-0.0); Mean Corp Hgb Conc 31.8 g/dL (32-36); Mean Corpuscular Volume 83.5 fL (80-94); Mean Platelet Vol. 9.3 fl (6.2-12.0); NRBC Flagged by Analyzer 0 % (0-5); Platelet Count 255 K/mm3 (150-450); RBC Distribution Width CV 13.9 % (11.6-14.6); RBC Distribution Width SD 42.0 fl (35.1-43.9); Red Blood Count 4.67 M/mm3 (4.6-6.2); White Blood Count 14.7 K/mm3 (4.4-11.0)
[2025-06-15] MEDS: 0.9% Normal Saline (1000mL) 1,000 ML 1000 ML IV (14:16)
[2025-06-15 14:32] LABS: CRP 13.70 mg/L (0.0-3.0)
[2025-06-15 15:15] LABS: Anion Gap 10 (5-15); BUN 47 mg/dL (4-19); BUN/Creat Ratio 31.1 RATIO (10-20); Calcium,Total 9.7 mg/dL (7.6-11.0); Carbon Dioxide 25.4 mmol/L (21.0-32.0); Chloride 102 mmol/L (98-108); Estimated Creatinine Clearance 53.18 ml/min (50-250); Glucose 191 mg/dL (70-99); Potassium 5.0 mmol/L (3.3-5.1)
[2025-06-15] MEDS: Piperacil/Tazobactam 3.375 GM in 0.9% Normal Saline (50mL MB+) 50 ML IV ×2 (15:20→22:10)
[2025-06-15] MEDS: Vancomycin HCl 2,000 MG in 0.9% Normal Saline (500mL Bag) 500 ML 250 MG IV (16:04)
--- NOTE | 2025-06-15 16:29 | PCM.HP.STD ---
[facility] - General General Date of Service: 06/15/25 Chief Complaint: Poor healing wound HPI Narrative RICHARD ROY, is a 79 M who presents with a poor healing wound on his left lateral foot. This is a 79-year-old male who resides in a skilled nursing with a history of diabetes and diabetic neuropathy underwent debridement of the fifth ray on February 05 and then underwent bypass surgery by Dr. Ac on the . Patient has had wound VAC on during much of that time. And has been following up with wound care. Despite the wound VAC and following up with wound care, the wound has not been healing and the wound care provider sent the patient to the emergency room. Patient had an x-ray of his foot that showed osteomyelitis of the distal portion of the proximal phalanx of the fifth toe with evidence of soft tissue ulceration and swelling. Patient received pip-tazo and vancomycin in the emergency room. Patient denies any other symptoms. He denies any pain due to his neuropathy. Dr. Mejia and Dr. Ac were notified emergency room and will see the patient in consultation. [ ] [facility] Medical History MRSA (methicillin resistant staph aureus) culture positive History of stress test History of echocardiogram Cardiology follow-up encounter Uses wheelchair Difficulty swallowing History of ulceration History of GI bleed History of renal disease Prostate disease Pulmonary embolism High cholesterol Atrial tachycardia Anxiety Depression Kidney stones GI bleed Non-smoker Atrial fibrillation AAA (abdominal aortic aneurysm) Dementia Bacteremia Subtherapeutic international normalized ratio (INR) UTI (urinary tract infection) Presence of cardiac pacemaker Sick sinus syndrome Anemia Second degree AV block, Mobitz type II Supratherapeutic INR Syncope Acute encephalopathy Weakness Confusion History of pulmonary embolism NSTEMI, initial episode of care Valvular heart disease Amputation of right great toe Leukocytosis Hyperkalemia COVID-19 Ureterolithiasis Diabetes Aortic aneurysm without rupture HTN (hypertension) Lactic acidosis Upper gastrointestinal bleed Diabetic neuropathy Osteomyelitis Ulcer of right great toe due to diabetes mellitus Pulmonary emboli HLD (hyperlipidemia) RBBB (right bundle 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) Home Medications ?Medication ?Instructions ?Recorded ?Last Taken ?Type losartan 50 mg tablet 50 mg PO DAILY blood pressure 03/24/18 06/01/24 History atorvastatin 40 mg tablet 40 mg PO QHS cholesterol 05/22/18 05/31/24 History tamsulosin 0.4 mg capsule 0.4 mg PO QHS PROSTATE 03/02/22 05/31/24 History pantoprazole 40 mg tablet,delayed 40 mg PO BID #60 tabs 02/05/23 06/01/24 Rx release sucralfate 1 gram tablet 1 g PO 0700,1100,1600 #90 tabs 02/05/23 06/01/24 Rx melatonin 3 mg tablet 3 mg PO QHS PRN Insomnia 02/10/23 02/10/23 History memantine 10 mg tablet 10 mg PO BID #0 tabs 02/13/23 06/01/24 Rx bisacodyl 10 mg rectal suppository 10 mg [place] DAILY PRN constipation 05/30/23 Unknown History ferrous sulfate 325 mg (65 mg 325 mg PO DAILY 10/07/23 06/01/24 History iron) tablet apixaban 5 mg tablet (Eliquis) 5 mg PO BID #60 tabs 03/03/24 05/30/24 Rx ipratropium 0.5 mg-albuterol 3 mg 3 ml inhalation Q4H PRN shortness 02/02/25 Unknown History (2.5 mg base)/3 mL nebulization of breath soln metoprolol succinate 25 mg capsule 25 mg PO DAILY 02/02/25 Unknown History sprinkle, ext. release 24 hr (Kapspargo Sprinkle) clopidogrel 75 mg tablet 75 mg PO DAILY 90 days #0 tabs 02/11/25 Unknown Rx arginine 7 gram-glutamine 7 PO BID 02/27/25 Unknown History gram-calcium HMB 1.5 gram oral powder pack (Luis) insulin glargine 100 unit/mL (3 18 unit subcut DAILY diabetes 02/27/25 Unknown History mL) subcutaneous pen (Lantus Solostar U-100 Insulin) paroxetine HCl 20 mg tablet (Paxil) 20 mg PO DAILY 02/27/25 Unknown History insulin lispro 100 unit/mL 1 sliding scale dose subcut 03/03/25 Unknown History subcutaneous pen (Humalog KwikPen USEASDIRECTD (U-100) Insulin) acetaminophen 325 mg tablet 650 mg PO BID PAIN AND FEVER 03/22/25 Unknown History cholecalciferol (vitamin D3) 1,250 1,250 mcg PO QWEEK SUPPLEMENT 03/22/25 Unknown History mcg (50,000 unit) tablet guaifenesin 100 mg/5 mL oral liquid 200 mg PO Q6H PRN congestion 03/22/25 Unknown History loperamide 2 mg tablet 2 mg PO Q4H PRN loose stool 03/22/25 Unknown History magnesium hydroxide 400 mg/5 mL 30 ml PO QDAY PRN constipation 03/22/25 Unknown History oral suspension (Milk of Magnesia) Allergy/AdvReac Type Severity Reaction Status Date / Time propofol AdvReac Other Verified 06/15/25 13:10 Family History Mother Heart disease Diabetes Hypertension Father Heart disease Surgical History History of AAA (abdominal aortic aneurysm) repair History of foot surgery Hx of abdominal surgery H/O aortic valve repair History of thoracic aortic aneurysm repair Social History housing: house current occupational status: retired Smoking Status: Never smoker alcohol intake: never substance use type: does not use ROS ROS Narrative All review of systems were negative except as mentioned above in the history of present illness and the other review of systems. Vital Signs Vital Signs Vital Signs: 06/15/25 13:05 06/15/25 13:48 06/15/25 14:10 Temperature 36.8 C 36.6 C 36.8 C Temperature Source Oral Oral Oral Pulse Rate 60 60 80 Respiratory Rate 18 16 16 Blood Pressure 93/49 L 118/72 128/66 H Blood Pressure Mean 63 87 86 Pulse Ox 95 96 99 Oxygen Delivery Method Room Air Room Air Room Air 06/15/25 15:00 06/15/25 15:52 06/15/25 16:00 Temperature 36.6 C 36.6 C 36.8 C Temperature Source Oral Oral Pulse Rate 69 69 78 Respiratory Rate 16 16 16 Blood Pressure 145/82 H 145/82 H 136/82 H Blood Pressure Mean 103 103 100 Pulse Ox 98 98 99 Oxygen Delivery Method Room Air Room Air Weight Weight: 111.1 kg Body Mass Index (BMI) 32.3 Physical Exam Const alert and no apparent distress Constitutional Narrative: Resting comfortably in bed. Nontoxic. HEENT normocephalic and head/scalp atraumatic Resp normal respiratory effort, no retractions, no use of accessory muscles and clear to auscultation bilaterally Cardio regular rate, regular rhythm, S1 normal heart sound and S2 normal heart sound GI normal to inspection, nondistended, normoactive bowel sounds, soft to palpation, non-tender and non-distended Extremity Extremity Narrative: Ulceration of the left lateral foot with serous drainage. Slight erythema around the edges. Neuro Sensorium / Orientation: awake and alert Psych affect normal Results Lab / Micro Data Attestation: I reviewed the patient's lab results. 06/15/25 13:43 06/15/25 14:38 Labs: Laboratory Results - last 24 hr 06/15/25 13:43: WBC 14.7 H, RBC 4.67, Hgb 12.4 L, Hct 39.0 L, MCV 83.5, MCH 26.6 L, MCHC 31.8 L, RDW Std Deviation 42.0, RDW Coeff of Nathaniel 13.9, Plt Count 255, MPV 9.3, Immature Gran % (Auto) 1.000 H, Neut % (Auto) 76.2 H, Lymph % (Auto) 12.7 L, [place] % (Auto) 6.4, Eos % (Auto) 3.2, Baso % (Auto) 0.5, Absolute Neuts (auto) 11.2 H, Absolute Lymphs (auto) 1.87, Nucleated RBC % 0, ESR 19, Sodium Cancelled, Potassium Cancelled, Chloride Cancelled, Carbon Dioxide Cancelled, Anion Gap Cancelled, BUN Cancelled, Creatinine Cancelled, Est GFR (MDRD) Non-Af Cancelled, BUN/Creatinine Ratio Cancelled, Glucose Cancelled, Calcium Cancelled, C-React Prot Ext Range 13.70 H 06/15/25 13:44: Lactic Acid 1.8 06/15/25 14:38: Sodium 137, Potassium 5.0, Chloride 102, Carbon Dioxide 25.4, Anion Gap 10, BUN 47 H, Creatinine 1.52 H, Estim Creat Clear Calc 53.18, Est GFR (MDRD) Non-Af 47 L, BUN/Creatinine Ratio 31.1 H, Glucose 191 H, Calcium 9.7 Imaging Radiology Impression Foot X-Ray 06/15/25 13:52 IMPRESSION: Findings suggestive of osteomyelitis involving the distal portion of the proximal phalanx of the 5th toe with evidence of soft tissue ulceration and swelling. Degenerative changes of the tarsal bone suggestive of possible Charcot's deformity. Reading Location: [facility] Assessment & Plan Assessment/Plan (1) Acute osteomyelitis of metatarsal bone of left foot: PLAN: Acute on chronic. Patient had surgery in January and still not healing. Results as mention on the x-ray. Podiatry, vascular and infectious disease consultation. Check wound culture Heel weightbearing on the left Antibiotics with pip-tazo and vancomycin PLAN: Plan Diabetes mellitus type 2: Insulin-dependent. Continue with glargine. Add sliding scale insulin. Check an A1c. Diabetic neuropathy: Complicates care and recovery Hyperlipidemia: Continue with atorvastatin PAD: Vascular surgery on consultation. Hold off on clopidogrel and apixaban for now. History of PE: Apixaban on hold given the potential for surgery or debridement Atrial fibrillation: Rate controlled. Apixaban on hold. BPH: Continue tamsulosin VTE prophylaxis with SCDs CODE STATUS: Addressed with the patient. Patient wishes to be full code. Case discussed with the patient's at bedside Charges/Coding Visit Charges Inpatient E&M: 61605 Init Hosp L2
--- NOTE | 2025-06-15 16:44 | PCM.CONS.GEN ---
Assessment & Plan Assessment/Plan (1) Chronic multifocal osteomyelitis of left foot: (2) Cellulitis of left toe: (3) Type 2 diabetes mellitus with foot ulcer: QUALIFIERS: Diabetic foot ulcer location: toe Laterality: left Non-pressure ulcer stage: with necrosis of bone Qualified Code(s): E11.621 - Type 2 diabetes mellitus with foot ulcer; L97.524 - Non-pressure chronic ulcer of other part of left foot with necrosis of bone PLAN: Plan Evaluation performed. Reviewed diagnostic data. Ulceration left 5th toe down to bone, with xray evidence of osteomyelitis. There is no evidence of gas on xrays. A deep wound culture was obtained and sent to microbiology for further evaluation. Patient has been started on IV antibiotics Vanc and Zosyn. Peripheral arterial disease: Chronic - no evidence of acute ischemia - vascular surgery has been consulted. Discussed options for osteomyelitis left 5th toe with patient and at bedside - and they would like to proceed with left 5th toe amputation. Will plan for vascular surgery evaluation prior. On schedule for left 5th toe amputation this . Discussed with Dr. Sutton. Wound care left 5th toe: Betadine soln and gauze dressing - change daily. Keep bilateral heels offloaded to help prevent break down while in bed. Thank you for consultation. HPI Consult Data Date of Consult: 06/15/25 HPI Narrative Reason for Consultation: Left 5th toe infection HPI Narrative: RICHARD ROY, is a 79 M who presents to [facility] for left 5th toe infection. Had infection to site in January 2025, underwent debridement, and also vascular intervention, along with antibiotics and wound has slowly been healing, was doing good until recently when left 5th toe has become red. Left foot xrays from today show concern for osteomyelitis to left 5th toe base of proximal phalanx. Patient has many medical problems, including diabetes, peripheral neuropathy, peripheral vascular standpoint, chronic kidney disease as well. He has been admitted for further management. He has been started on IV antibiotics. [facility], LATER [facility] Medical History MRSA (methicillin resistant staph aureus) culture positive History of stress test History of echocardiogram Cardiology follow-up encounter Uses wheelchair Difficulty swallowing History of ulceration History of GI bleed History of renal disease Prostate disease Pulmonary embolism High cholesterol Atrial tachycardia Anxiety Depression Kidney stones GI bleed Non-smoker Atrial fibrillation AAA (abdominal aortic aneurysm) Dementia Bacteremia Subtherapeutic international normalized ratio (INR) UTI (urinary tract infection) Presence of cardiac pacemaker Sick sinus syndrome Anemia Second degree AV block, Mobitz type II Supratherapeutic INR Syncope Acute encephalopathy Weakness Confusion History of pulmonary embolism NSTEMI, initial episode of care Valvular heart disease Amputation of right great toe Leukocytosis Hyperkalemia COVID-19 Ureterolithiasis Diabetes Aortic aneurysm without rupture HTN (hypertension) Lactic acidosis Upper gastrointestinal bleed Diabetic neuropathy Osteomyelitis Ulcer of right great toe due to diabetes mellitus Pulmonary emboli HLD (hyperlipidemia) RBBB (right bundle 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) Home Medications ?Medication ?Instructions ?Recorded ?Last Taken ?Type losartan 50 mg tablet 50 mg PO DAILY blood pressure 03/24/18 06/01/24 History atorvastatin 40 mg tablet 40 mg PO QHS cholesterol 05/22/18 05/31/24 History tamsulosin 0.4 mg capsule 0.4 mg PO QHS PROSTATE 03/02/22 05/31/24 History pantoprazole 40 mg tablet,delayed 40 mg PO BID #60 tabs 02/05/23 06/01/24 Rx release sucralfate 1 gram tablet 1 g PO 0700,1100,1600 #90 tabs 02/05/23 06/01/24 Rx melatonin 3 mg tablet 3 mg PO QHS PRN Insomnia 02/10/23 02/10/23 History memantine 10 mg tablet 10 mg PO BID #0 tabs 02/13/23 06/01/24 Rx bisacodyl 10 mg rectal suppository 10 mg [place] DAILY PRN constipation 05/30/23 Unknown History ferrous sulfate 325 mg (65 mg 325 mg PO DAILY 10/07/23 06/01/24 History iron) tablet apixaban 5 mg tablet (Eliquis) 5 mg PO BID #60 tabs 03/03/24 05/30/24 Rx ipratropium 0.5 mg-albuterol 3 mg 3 ml inhalation Q4H PRN shortness 02/02/25 Unknown History (2.5 mg base)/3 mL nebulization of breath soln metoprolol succinate 25 mg capsule 25 mg PO DAILY 02/02/25 Unknown History sprinkle, ext. release 24 hr (Kapspargo Sprinkle) clopidogrel 75 mg tablet 75 mg PO DAILY 90 days #0 tabs 02/11/25 Unknown Rx arginine 7 gram-glutamine 7 PO BID 02/27/25 Unknown History gram-calcium HMB 1.5 gram oral powder pack (Luis) insulin glargine 100 unit/mL (3 18 unit subcut DAILY diabetes 02/27/25 Unknown History mL) subcutaneous pen (Lantus Solostar U-100 Insulin) paroxetine HCl 20 mg tablet (Paxil) 20 mg PO DAILY 02/27/25 Unknown History insulin lispro 100 unit/mL 1 sliding scale dose subcut 03/03/25 Unknown History subcutaneous pen (Humalog KwikPen USEASDIRECTD (U-100) Insulin) acetaminophen 325 mg tablet 650 mg PO BID PAIN AND FEVER 03/22/25 Unknown History cholecalciferol (vitamin D3) 1,250 1,250 mcg PO QWEEK SUPPLEMENT 03/22/25 Unknown History mcg (50,000 unit) tablet guaifenesin 100 mg/5 mL oral liquid 200 mg PO Q6H PRN congestion 03/22/25 Unknown History loperamide 2 mg tablet 2 mg PO Q4H PRN loose stool 03/22/25 Unknown History magnesium hydroxide 400 mg/5 mL 30 ml PO QDAY PRN constipation 03/22/25 Unknown History oral suspension (Milk of Magnesia) Allergy/AdvReac Type Severity Reaction Status Date / Time propofol AdvReac Other Verified 06/15/25 13:10 Family History Mother Heart disease Diabetes Hypertension Father Heart disease Surgical History History of AAA (abdominal aortic aneurysm) repair History of foot surgery Hx of abdominal surgery H/O aortic valve repair History of thoracic aortic aneurysm repair Social History housing: house current occupational status: retired Smoking Status: Never smoker alcohol intake: never substance use type: does not use Physical Exam Const alert and no apparent distress Constitutional Narrative: Left 5th toe with ulceration at base and central aspect of the toe probes to bone, there is some granular tissue to the wound but also some dry eschar, there is some bleeding, there is some mild erythema localized to the 5th toe with some edema, no maloder, no fluctuance, no crepitus, no purulence, no visible abscess noted. No other open lesions bilateral foot or evidence of cellulitis or abscess to rest of foot bilateral. No evidence of acute ischemia bilateral foot. No POP or pain on ROM to foot or ankle bilateral. There is chronic peripheral neuropathy bilateral lower extremity. Lab / Micro Data 06/15/25 13:43 06/15/25 14:38 Labs: Laboratory Results - last 24 hr 06/15/25 13:43: WBC 14.7 H, RBC 4.67, Hgb 12.4 L, Hct 39.0 L, MCV 83.5, MCH 26.6 L, MCHC 31.8 L, RDW Std Deviation 42.0, RDW Coeff of Nathaniel 13.9, Plt Count 255, MPV 9.3, Immature Gran % (Auto) 1.000 H, Neut % (Auto) 76.2 H, Lymph % (Auto) 12.7 L, [place] % (Auto) 6.4, Eos % (Auto) 3.2, Baso % (Auto) 0.5, Absolute Neuts (auto) 11.2 H, Absolute Lymphs (auto) 1.87, Nucleated RBC % 0, ESR 19, Sodium Cancelled, Potassium Cancelled, Chloride Cancelled, Carbon Dioxide Cancelled, Anion Gap Cancelled, BUN Cancelled, Creatinine Cancelled, Est GFR (MDRD) Non-Af Cancelled, BUN/Creatinine Ratio Cancelled, Glucose Cancelled, Calcium Cancelled, C-React Prot Ext Range 13.70 H 06/15/25 13:44: Lactic Acid 1.8 06/15/25 14:38: Sodium 137, Potassium 5.0, Chloride 102, Carbon Dioxide 25.4, Anion Gap 10, BUN 47 H, Creatinine 1.52 H, Estim Creat Clear Calc 53.18, Est GFR (MDRD) Non-Af 47 L, BUN/Creatinine Ratio 31.1 H, Glucose 191 H, Calcium 9.7 Imaging Radiology Impression Foot X-Ray 06/15/25 13:52 IMPRESSION: Findings suggestive of osteomyelitis involving the distal portion of the proximal phalanx of the 5th toe with evidence of soft tissue ulceration and swelling. Degenerative changes of the tarsal bone suggestive of possible Charcot's deformity. Reading Location: [id number]
--- NOTE | 2025-06-15 17:35 | PCM.RX.CS ---
Consult Antibiotic Management Pharmacy has been consulted to manage selected antibiotic: Vancomycin Type of Intervention Type of Consult: New start Suspected Infection Suspected Infection: Osteomyelitis Prior Doses of Antibiotics Prior Doses of Antibiotics Received/Current Regimen: received 2000mg IV x1 in E.R. starting at 16:04 today Labs Labs: Sodium 137 mmol/L (133-145) 06/15/25 14:38 Potassium 5.0 mmol/L (3.3-5.1) 06/15/25 14:38 Chloride 102 mmol/L (98-108) 06/15/25 14:38 Carbon Dioxide 25.4 mmol/L (21.0-32.0) 06/15/25 14:38 Anion Gap 10 (5-15) 06/15/25 14:38 BUN 47 mg/dL (4-19) H 06/15/25 14:38 Creatinine 1.52 mg/dL (0.70-1.20) H 06/15/25 14:38 Est GFR (MDRD) Non-Af 47 (>60) L 06/15/25 14:38 BUN/Creatinine Ratio 31.1 RATIO (10-20) H 06/15/25 14:38 Glucose 191 mg/dL (70-99) H 06/15/25 14:38 Dosing Weight Weight used for dosin kg Estimated Creatinine Clearance Estimated Creatinine Clearance: 53 ml/min Goal Trough Goal Trough: 15-20 mcg/mL Pharmacy Plan for Drug Dosing Pharmacy Plan for Drug Dosing: Starting 12 hours after the E.R. dose, continue with vanc 750mg IV q12h. During a previous admission to hospital in January of this year, the patient's most recent dose of vanc was 500mg q12h. Higher doses had resulted in high troughs. Will start at a slightly higher 750mg q12h this time since the patient has better renal function than when he was on the 500mg dose. Check a trough before the 4th overall dose. Pharmacy Service will continue to monitor and adjust dosing as required. Follow-Up Labs Follow-Up Labs: Trough: Vancomycin Date/Time Labs Ordered Labs to be done on [date and time ordered]: 06/17/25 03:30
[2025-06-15] MEDS: 0.9% Saline Lock 10 ML Syringe IV (18:48)
[2025-06-15] MEDS: 0.9% Normal Saline (250mL Bag) 250 ML 15 ML IV (22:10)
[2025-06-15] MEDS: Memantine Hydrochloride 10 MG Tablet PO (23:53)
[2025-06-16] VITALS (7 sets, daily range): BP systolic 104–144; BP diastolic 59–78; PULSE 65–81; RESP 15–18; TEMP 36.6–37.2; O2SAT 95–98
[2025-06-16] MEDS: Vancomycin HCl 750 MG in 0.9% Normal Saline (250mL Bag) 250 ML 250 MG IV ×2 (03:59→15:49)
--- NOTE | 2025-06-16 06:00 | EKG12_ITS ---
Test Reason : PRE-OP Blood Pressure : */* mmHG Vent. Rate : 80 BPM Atrial Rate : 80 BPM P-R Int : 192 ms QRS Dur : 230 ms QT Int : 506 ms P-R-T Axes : 4 -79 103 degrees QTcB Int : 583 ms Atrial-sensed ventricular-paced rhythm Abnormal ECG When compared with ECG of 27-Feb-2025 19:14, Vent. rate has increased by 2 bpm Confirmed by Tuan Thakkar ([id number]), health editor SOFIA CAMERON ([id number]) on 06/23/2025 10:19:25 AM Referred By: Jovani Confirmed By: Tuan Thakkar
[2025-06-16 06:10] LABS: Hematocrit 34.7 % (40-54); Hemoglobin 11.2 g/dL (13.0-16.5); Immature Granulocytes Count 0.130 X10^3/uL (0.0-0.0); Mean Corp Hgb Conc 32.3 g/dL (32-36); Mean Corpuscular Volume 82.6 fL (80-94); Mean Platelet Vol. 9.1 fl (6.2-12.0); NRBC Flagged by Analyzer 0 % (0-5); Platelet Count 225 K/mm3 (150-450); RBC Distribution Width CV 13.2 % (11.6-14.6); RBC Distribution Width SD 39.9 fl (35.1-43.9); Red Blood Count 4.20 M/mm3 (4.6-6.2); White Blood Count 12.4 K/mm3 (4.4-11.0)
[2025-06-16] MEDS: Piperacil/Tazobactam 3.375 GM in 0.9% Normal Saline (50mL MB+) 50 ML IV ×3 (06:27→21:50)
[2025-06-16 06:52] LABS: Anion Gap 13 (5-15); BUN 37 mg/dL (4-19); BUN/Creat Ratio 26.2 RATIO (10-20); Calcium,Total 9.4 mg/dL (7.6-11.0); Carbon Dioxide 21.5 mmol/L (21.0-32.0); Chloride 106 mmol/L (98-108); Estimated Creatinine Clearance 56.86 ml/min (50-250); Glucose 161 mg/dL (70-99); Potassium 3.4 mmol/L (3.3-5.1)
--- NOTE | 2025-06-16 07:12 | ART_ITS ---
Reason For Study Reason For Study: S/P Lt AT/PT Angio Procedure A bilateral lower extremity continuous wave Doppler with analog waveform analysis and ankle brachial indexes. Left Segmental Pressures Left posterior tibial artery = 105mmHg. Left dorsalis pedis artery = 113mmHg. Left digit = 11 mmHg. The left posterior tibial artery waveforms are biphasic. The left dorsalis pedis waveforms are biphasic. Right Segmental Pressures Right brachial= 127mmHg. Right posterior tibial artery = N/CmmHg. Right dorsalis pedis artery = 1.24mmHg. The right posterior tibial artery waveforms are triphasic. The right dorsalis pedis waveforms are triphasic. Indices The right ankle brachial index by the posterior tibial artery is N/C. The right ankle brachial index by the dorsalis pedis is 1.24. The left ankle brachial index by the posterior tibial artery is 0.83. The left ankle brachial index by the dorsalis pedis is 0.89. The left digital-brachial index is 0.09. VL/Ankle Brachial Index Interpretation Summary Right JOSTIN 1.24, normal. Doppler/PVR waveforms of the right ankle normal at rest . Left JOSTIN 0.89, moderate arterial insufficiency. Doppler/PVR waveforms of the le ft ankle mildly dimished at rest. Ordering Physician: Meghana Cole Referring Physician: Walter Lopez Performed By: Giancarlo Loaiza RVT and Student
--- NOTE | 2025-06-16 07:12 | ADUL_ITS ---
Reason For Study Reason For Study: S/P Left SYNTHETIC FILAMENT EXTRUDER, RYAN angioplasty Left Velocities Ext Iliac Artery, dist = 75 cm./sec. Common Femoral Artery, mid = 122.7 cm./sec. Supf. Femoral Artery, prox = 133.7 cm./sec. Supf. Femoral Artery, mid = 98.6 cm./sec. Supf. Femoral Artery, dist = 67.4 cm./sec. Profunda Femoral Artery = 71.1 cm./sec. Popliteal Artery, mid = 53.9 cm./sec. Post. Tibial Artery, prox = 53.9 cm./sec. Post Tibial Artery, mid = 60 cm./sec. Post Tibial Artery, dist. = 49 cm./sec. Peroneal Artery, prox = 85.7 cm./sec. Peroneal Artery, mid = 138.1 cm./sec. Peroneal Artery,dist. = 120.5 cm./sec. Ant.Tibial Artery, prox = 113.9 cm./sec. Ant Tibial Artery, mid = 25.7 cm./sec. Ant. Tibial Artery, distal = 26.4 cm./sec. Procedure Exam performed in department. /US Art Duplex Unilat Lower Ext Interpretation Summary Left lower extremity arteries patent with normal velocities and no stenosis agl ntified. Ordering Physician: Meghana Cole Referring Physician: Walter Becker Performed By: Shirley Jang RVT
--- NOTE | 2025-06-16 07:14 | EX.PCM.CON.S ---
Assessment & Plan Assessment/Plan (1) PAD (peripheral artery disease): (2) Diabetic ulcer of left fifth toe: PLAN: Plan Obtained updated arterial duplex and JOSTIN; preliminary reports reviewed demonstrating triphasic flow proximallly, AT patent with triphasic flow, PT patent with biphasic flow proximally transitioning to monophasic flow distally. Arterial duplex suggests patent prior AT and PT angioplasties; however, possibly some renarrowing at the distal PT. Otherwise he has good inflow. No urgent need for vascular intervention prior to podiatric intervention. If he has good bleeding noted at the time of amputation, then do not anticipate a need for repeat angiogram/intervention and will monitor for healing. If there is lackluster bleeding at the time of amputation, then will plan for angiogram with possible repeat intervention next week, this can be on an outpatient basis if patient is otherwise appropriate for discharge prior. Called and discussed plan with her via phone. Will discuss with Dr. Mejia and follow-up on operative findings tomorrow. HPI Consult Data Date of Consult: 06/16/25 HPI Narrative HPI Narrative: RICHARD ROY, is a 79 M who presented to the [facility] ER yesterday at the recommendation of his SNF wound care provider for evaluation and potential operative debridement of his L 5th toe diabetic ulcer. He is known to our office; Dr. Ac performed L PT and AT angioplasty 02/10/2025 secondary to the same nonhealing diabetic toe ulceration for which he'd also had prior operative debridement by Dr. Mejia 02/05/25. Post-intervention his initial arterial duplex showed patent PT/AT and improved waveforms into the L foot. There overall has been significant reduction in overall size of the wound since the interventions; however, there was worsening appearance concerning for infection leading to his referral to the ER. XR in the ER did demonstrate appearance consistent with acute osteomyelitis. He has been seen this admission in consultation by Dr. Mejia and Dr. Mejia has recommended L 5th digit amputation for source control of the osteo and this is planned for tomorrow. [facility] Medical History MRSA (methicillin resistant staph aureus) culture positive History of stress test History of echocardiogram Cardiology follow-up encounter Uses wheelchair Difficulty swallowing History of ulceration History of GI bleed History of renal disease Prostate disease Pulmonary embolism High cholesterol Atrial tachycardia Anxiety Depression Kidney stones GI bleed Non-smoker Atrial fibrillation AAA (abdominal aortic aneurysm) Dementia Bacteremia Subtherapeutic international normalized ratio (INR) UTI (urinary tract infection) Presence of cardiac pacemaker Sick sinus syndrome Anemia Second degree AV block, Mobitz type II Supratherapeutic INR Syncope Acute encephalopathy Weakness Confusion History of pulmonary embolism NSTEMI, initial episode of care Valvular heart disease Amputation of right great toe Leukocytosis Hyperkalemia COVID-19 Ureterolithiasis Diabetes Aortic aneurysm without rupture HTN (hypertension) Lactic acidosis Upper gastrointestinal bleed Diabetic neuropathy Osteomyelitis Ulcer of right great toe due to diabetes mellitus Pulmonary emboli HLD (hyperlipidemia) RBBB (right bundle 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) Home Medications ?Medication ?Instructions ?Recorded ?Last Taken ?Type losartan 50 mg tablet 50 mg PO DAILY blood pressure 03/24/18 06/01/24 History atorvastatin 40 mg tablet 40 mg PO QHS cholesterol 05/22/18 05/31/24 History tamsulosin 0.4 mg capsule 0.4 mg PO QHS PROSTATE 03/02/22 05/31/24 History pantoprazole 40 mg tablet,delayed 40 mg PO BID #60 tabs 02/05/23 06/01/24 Rx release sucralfate 1 gram tablet 1 g PO 0700,1100,1600 #90 tabs 02/05/23 06/01/24 Rx melatonin 3 mg tablet 3 mg PO QHS PRN Insomnia 02/10/23 02/10/23 History memantine 10 mg tablet 10 mg PO BID #0 tabs 02/13/23 06/01/24 Rx bisacodyl 10 mg rectal suppository 10 mg [place] DAILY PRN constipation 05/30/23 Unknown History ferrous sulfate 325 mg (65 mg 325 mg PO DAILY 10/07/23 06/01/24 History iron) tablet apixaban 5 mg tablet (Eliquis) 5 mg PO BID #60 tabs 03/03/24 05/30/24 Rx ipratropium 0.5 mg-albuterol 3 mg 3 ml inhalation Q4H PRN shortness 02/02/25 Unknown History (2.5 mg base)/3 mL nebulization of breath soln metoprolol succinate 25 mg capsule 25 mg PO DAILY 02/02/25 Unknown History sprinkle, ext. release 24 hr (Kapspargo Sprinkle) clopidogrel 75 mg tablet 75 mg PO DAILY 90 days #0 tabs 02/11/25 Unknown Rx arginine 7 gram-glutamine 7 PO BID 02/27/25 Unknown History gram-calcium HMB 1.5 gram oral powder pack (Luis) insulin glargine 100 unit/mL (3 18 unit subcut DAILY diabetes 02/27/25 Unknown History mL) subcutaneous pen (Lantus Solostar U-100 Insulin) paroxetine HCl 20 mg tablet (Paxil) 20 mg PO DAILY 02/27/25 Unknown History insulin lispro 100 unit/mL 1 sliding scale dose subcut 03/03/25 Unknown History subcutaneous pen (Humalog KwikPen USEASDIRECTD (U-100) Insulin) acetaminophen 325 mg tablet 650 mg PO BID PAIN AND FEVER 03/22/25 Unknown History cholecalciferol (vitamin D3) 1,250 1,250 mcg PO QWEEK SUPPLEMENT 03/22/25 Unknown History mcg (50,000 unit) tablet guaifenesin 100 mg/5 mL oral liquid 200 mg PO Q6H PRN congestion 03/22/25 Unknown History loperamide 2 mg tablet 2 mg PO Q4H PRN loose stool 03/22/25 Unknown History magnesium hydroxide 400 mg/5 mL 30 ml PO QDAY PRN constipation 03/22/25 Unknown History oral suspension (Milk of Magnesia) Allergy/AdvReac Type Severity Reaction Status Date / Time propofol AdvReac Other Verified 06/15/25 13:10 Family History Mother Heart disease Diabetes Hypertension Father Heart disease Surgical History History of AAA (abdominal aortic aneurysm) repair History of foot surgery Hx of abdominal surgery H/O aortic valve repair History of thoracic aortic aneurysm repair Social History housing: house current occupational status: retired Smoking Status: Never smoker alcohol intake: never substance use type: does not use Physical Exam Const alert and no apparent distress General Appearance: cooperative and comfortable HEENT normocephalic, head/scalp atraumatic, hearing grossly normal bilaterally and external ears normal Eyes General Eye: normal appearance of both eyes Neck General: normal visual inspection Resp normal respiratory effort Effort and Inspection: able to speak in complete sentences; Negative for labored, grunting or stridor Cardio regular rate Extremity Extremity Narrative: LLE with wound dressings in place, not disturbed for exam Skin Wounds: wounds noted Wound Narrative: L 5th digit wound, pictures in chart reviewed Psych Appearance: grossly normal Attitude: calm Speech: normal speech Lab / Micro Data 06/16/25 05:58 06/16/25 05:58 Labs: Laboratory Results - last 24 hr 06/15/25 13:43: WBC 14.7 H, RBC 4.67, Hgb 12.4 L, Hct 39.0 L, MCV 83.5, MCH 26.6 L, MCHC 31.8 L, RDW Std Deviation 42.0, RDW Coeff of Nathaniel 13.9, Plt Count 255, MPV 9.3, Immature Gran % (Auto) 1.000 H, Neut % (Auto) 76.2 H, Lymph % (Auto) 12.7 L, [place] % (Auto) 6.4, Eos % (Auto) 3.2, Baso % (Auto) 0.5, Absolute Neuts (auto) 11.2 H, Absolute Lymphs (auto) 1.87, Nucleated RBC % 0, ESR 19, Sodium Cancelled, Potassium Cancelled, Chloride Cancelled, Carbon Dioxide Cancelled, Anion Gap Cancelled, BUN Cancelled, Creatinine Cancelled, Est GFR (MDRD) Non-Af Cancelled, BUN/Creatinine Ratio Cancelled, Glucose Cancelled, Calcium Cancelled, C-React Prot Ext Range 13.70 H 06/15/25 13:44: Lactic Acid 1.8 06/15/25 14:38: Sodium 137, Potassium 5.0, Chloride 102, Carbon Dioxide 25.4, Anion Gap 10, BUN 47 H, Creatinine 1.52 H, Estim Creat Clear Calc 53.18, Est GFR (MDRD) Non-Af 47 L, BUN/Creatinine Ratio 31.1 H, Glucose 191 H, Calcium 9.7 06/15/25 23:49: POC Glucose 158 H 06/16/25 05:58: WBC 12.4 H, RBC 4.20 L, Hgb 11.2 L, Hct 34.7 L, MCV 82.6, MCH 26.7 L, MCHC 32.3, RDW Std Deviation 39.9, RDW Coeff of Nathaniel 13.2, Plt Count 225, MPV 9.1, Immature Gran % (Auto) 1.000 H, Neut % (Auto) 76.2 H, Lymph % (Auto) 13.0 L, [place] % (Auto) 6.6, Eos % (Auto) 2.9, Baso % (Auto) 0.3, Absolute Neuts (auto) 9.5 H, Absolute Lymphs (auto) 1.62, Nucleated RBC % 0, Sodium 140, Potassium 3.4, Chloride 106, Carbon Dioxide 21.5, Anion Gap 13, BUN 37 H, Creatinine 1.41 H, Estim Creat Clear Calc 56.86, Est GFR (MDRD) Non-Af 51 L, BUN/Creatinine Ratio 26.2 H, Glucose 161 H, Hemoglobin A1c 7.2 H, Calcium 9.4 Imaging Radiology Impression Foot X-Ray 06/15/25 13:52 IMPRESSION: Findings suggestive of osteomyelitis involving the distal portion of the proximal phalanx of the 5th toe with evidence of soft tissue ulceration and swelling. Degenerative changes of the tarsal bone suggestive of possible Charcot's deformity. Reading Location: [id number] Charges/Coding Visit Charges Inpatient E&M: 07147 Init Hosp L1
--- NOTE | 2025-06-16 07:59 | WOUNDNOTE ---
wound photo: right axilla
--- NOTE | 2025-06-16 08:00 | WOUNDNOTE ---
wound photo: left foot
--- NOTE | 2025-06-16 08:00 | WOUNDNOTE ---
wound photo: left foot
--- NOTE | 2025-06-16 08:01 | WOUNDNOTE ---
wound photo: left foot
[2025-06-16] MEDS: Metoprolol(XL)Succ 25 MG Tablet PO (09:46)
[2025-06-16] MEDS: Insulin Glargine-YFGN 100 UNIT/ML Pen 18 UNIT SC (09:46)
[2025-06-16] MEDS: Memantine Hydrochloride 10 MG Tablet PO ×2 (09:47→21:42)
[2025-06-16 10:04] LABS: Staph aureus DNA By PCR NEGATIVE (Negative)
--- NOTE | 2025-06-16 11:29 | CASEMGMT ---
Noted that the pt is from [facility]. JACEY MASON to the pt's room at this time. Pt is disoriented and has a hx of Dementia. There is no family at the bedside. TC to pt's POA (). Pt's states that she prefers the pt to return to [facility] once medically ready and denies wanting to review a list of other local in-network SNFs. DPA and MS3 JACEY MASON notified.
--- NOTE | 2025-06-16 12:13 | PN_ITS ---
Subjective Subjective Patient seen and examined. He was having an arterial duplex study of the left lower extremity. There is no as well as by his bedside. He had no active complaints and had an uneventful night. Review of systems otherwise negative. Objective Data Objective Data Vital Signs: Vital Signs Temp Pulse Resp BP Pulse Ox O2 Del Method O2 Flow Rate 98.3 F 78 18 114/62 98 Nasal Cannula 2 06/16/25 08:40 06/16/25 09:46 06/16/25 08:40 06/16/25 09:46 06/16/25 08:40 06/16/25 08:41 06/16/25 08:41 Oxygen Flow Rate (L/min) 2 Oxygen Delivery Method Nasal Cannula Weight: 240 lb 12.8 oz Body Mass Index (BMI) 31.7 Intake & Output: Intake and Output for Last 24 Hours 06/14/25 06/15/25 06/16/25 23:59 23:59 23:59 Intake Total 1590 / 1590 505 / 505 Output Total 1250 / 1250 Balance 1590 / 990 -745 / -745 Lab / Micro Data 06/16/25 05:58 06/16/25 05:58 Labs: Laboratory Results - last 24 hr 06/15/25 13:43: WBC 14.7 H, RBC 4.67, Hgb 12.4 L, Hct 39.0 L, MCV 83.5, MCH 26.6 L, MCHC 31.8 L, RDW Std Deviation 42.0, RDW Coeff of Nathaniel 13.9, Plt Count 255, MPV 9.3, Immature Gran % (Auto) 1.000 H, Neut % (Auto) 76.2 H, Lymph % (Auto) 12.7 L, Wagoner % (Auto) 6.4, Eos % (Auto) 3.2, Baso % (Auto) 0.5, Absolute Neuts (auto) 11.2 H, Absolute Lymphs (auto) 1.87, Nucleated RBC % 0, ESR 19, Sodium Cancelled, Potassium Cancelled, Chloride Cancelled, Carbon Dioxide Cancelled, Anion Gap Cancelled, BUN Cancelled, Creatinine Cancelled, Est GFR (MDRD) Non-Af Cancelled, BUN/Creatinine Ratio Cancelled, Glucose Cancelled, Calcium Cancelled, C-React Prot Ext Range 13.70 H 06/15/25 13:44: Lactic Acid 1.8 06/15/25 14:38: Sodium 137, Potassium 5.0, Chloride 102, Carbon Dioxide 25.4, Anion Gap 10, BUN 47 H, Creatinine 1.52 H, Estim Creat Clear Calc 53.18, Est GFR (MDRD) Non-Af 47 L, BUN/Creatinine Ratio 31.1 H, Glucose 191 H, Calcium 9.7 06/15/25 23:49: POC Glucose 158 H 06/16/25 05:58: WBC 12.4 H, RBC 4.20 L, Hgb 11.2 L, Hct 34.7 L, MCV 82.6, MCH 26.7 L, MCHC 32.3, RDW Std Deviation 39.9, RDW Coeff of Nathaniel 13.2, Plt Count 225, MPV 9.1, Immature Gran % (Auto) 1.000 H, Neut % (Auto) 76.2 H, Lymph % (Auto) 13.0 L, Wagoner % (Auto) 6.6, Eos % (Auto) 2.9, Baso % (Auto) 0.3, Absolute Neuts (auto) 9.5 H, Absolute Lymphs (auto) 1.62, Nucleated RBC % 0, Sodium 140, Potassium 3.4, Chloride 106, Carbon Dioxide 21.5, Anion Gap 13, BUN 37 H, C reatinine 1.41 H, Estim Creat Clear Calc 56.86, Est GFR (MDRD) Non-Af 51 L, B UN/Creatinine Ratio 26.2 H, Glucose 161 H, Hemoglobin A1c 7.2 H, Calcium 9.4 06/16/25 06:30: POC Glucose 164 H 06/16/25 07:50: S.aureus Protein A PCR NEGATIVE, MRSA (PCR) Negative 06/16/25 11:30: POC Glucose 173 H Micro: Microbiology 06/16/25 07:50 Wound - Axilla, Right Gram Stain - Final 06/15/25 17:25 Wound - Left Foot Gram Stain - Final 06/15/25 17:25 Wound - Left Foot Wound Culture - Preliminary Mixed Gram Pos & Gram Neg Org Radiography Diagnostic Testing: Radiology Impression Foot X-Ray 06/15/25 13:52 IMPRESSION: Findings suggestive of osteomyelitis involving the distal portion of the proximal phalanx of the 5th toe with evidence of soft tissue ulceration and swelling. Degenerative changes of the tarsal bone suggestive of possible Charcot's deformity. Reading Location: [facility] Physical Exam Const no apparent distress General Appearance: cooperative Orientation / Consciousness: lethargic HEENT normocephalic, head/scalp atraumatic and moist oral mucous membranes Eyes EOMs intact bilaterally Neck supple and no JVD Lymph Lymphatic: no lymphedema noted Resp Resp Narrative: Mildly diminished breath sounds bibasilarly. No wheezes or crackles. On room air. Cardio regular rate, regular rhythm, S1 normal heart sound, S2 normal heart sound and no murmurs GI normal to inspection, nondistended, normoactive bowel sounds, soft to palpation and non-tender Extremity Extremity Narrative: Left lower extremity wrapped in bandage. Skin Skin Narrative: as under extremity Neuro Neuro Narrative: lethargic Motor Exam: general weakness Psych Mood & Affect: flat affect Assessment & Plan Assessment/Plan (1) Cellulitis of left toe: (2) Acute osteomyelitis of metatarsal bone of left foot: PLAN: Plan # Acute osteomyelitis of the left foot * Is more acute on chronic osteomyelitis. Patient did have surgery January 2025 for wound infection and wound is still not healed. Wound cultures ordered. On IV vancomycin and Zosyn. * Podiatry and ID consulted as well as vascular surgery. * Had left lower extremity arterial duplex done today. Results are pending. PT OT on board. Fall precautions * Foot x-ray on admission showed evidence of osteomyelitis involving the distal portion of the proximal phalanx of the fifth toe with evidence of soft tissue ulceration and swelling and degenerative changes of the tarsal bone suggestive of possible Charcot deformity. #Type 2 diabetes mellitus: * On Lantus. Insulin sliding scale. Accu-Cheks ACHS. * #Hyperlipidemia: On statin #History of peripheral artery disease: Vascular surgery on board. 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 On metoprolol BPH: On Flomax DVT prophylax: SCDs for now until Eliquis can be resumed. Charges/Coding Visit Charges Inpatient E&M: 29813 Subs Hosp L2
--- NOTE | 2025-06-16 12:15 | CASEMGMT ---
Discharge Planning Updates sent via [facility] to [facility]. Tamika Encinas DC Planning Asst.
--- NOTE | 2025-06-16 13:50 | PCM.CONS.GEN ---
Assessment & Plan Assessment/Plan (1) Chronic multifocal osteomyelitis of left foot: PLAN: Wound cx pending. Seen by podiatry and vascular. On empiric vanc/zosyn. Will follow, thank you (2) PAD (peripheral artery disease): (3) Diabetes mellitus with diabetic polyneuropathy: HPI Consult Data Date of Consult: 06/16/25 HPI Narrative Reason for Consultation: osteo HPI Narrative: RICHARD ROY, is a 79 M with h/o PAD, DM, prior osteo of feet, presented to ED 06/15 with worsening wound L lateral foot. Has had wound vac and vascular and podiatry followup but foot has progressive ulceration. Admitted on vanc/zosyn, seen by Dr. Mejia. ROS unobtainable due to mental status. FOR[facility]LY [facility], LATER [facility] Medical History MRSA (methicillin resistant staph aureus) culture positive History of stress test History of echocardiogram Cardiology follow-up encounter Uses wheelchair Difficulty swallowing History of ulceration History of GI bleed History of renal disease Prostate disease Pulmonary embolism High cholesterol Atrial tachycardia Anxiety Depression Kidney stones GI bleed Non-smoker Atrial fibrillation AAA (abdominal aortic aneurysm) Dementia Bacteremia Subtherapeutic international normalized ratio (INR) UTI (urinary tract infection) Presence of cardiac pacemaker Sick sinus syndrome Anemia Second degree AV block, Mobitz type II Supratherapeutic INR Syncope Acute encephalopathy Weakness Confusion History of pulmonary embolism NSTEMI, initial episode of care Valvular heart disease Amputation of right great toe Leukocytosis Hyperkalemia COVID-19 Ureterolithiasis Diabetes Aortic aneurysm without rupture HTN (hypertension) Lactic acidosis Upper gastrointestinal bleed Diabetic neuropathy Osteomyelitis Ulcer of right great toe due to diabetes mellitus Pulmonary emboli HLD (hyperlipidemia) RBBB (right bundle 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) Home Medications ?Medication ?Instructions ?Recorded ?Last Taken ?Type losartan 50 mg tablet 50 mg PO DAILY blood pressure 03/24/18 06/01/24 History atorvastatin 40 mg tablet 40 mg PO QHS cholesterol 05/22/18 05/31/24 History tamsulosin 0.4 mg capsule 0.4 mg PO QHS PROSTATE 03/02/22 05/31/24 History pantoprazole 40 mg tablet,delayed 40 mg PO BID #60 tabs 02/05/23 06/01/24 Rx release sucralfate 1 gram tablet 1 g PO 0700,1100,1600 #90 tabs 02/05/23 06/01/24 Rx melatonin 3 mg tablet 3 mg PO QHS PRN Insomnia 02/10/23 02/10/23 History memantine 10 mg tablet 10 mg PO BID #0 tabs 02/13/23 06/01/24 Rx bisacodyl 10 mg rectal suppository 10 mg MN DAILY PRN constipation 05/30/23 Unknown History ferrous sulfate 325 mg (65 mg 325 mg PO DAILY 10/07/23 06/01/24 History iron) tablet apixaban 5 mg tablet (Eliquis) 5 mg PO BID #60 tabs 03/03/24 05/30/24 Rx ipratropium 0.5 mg-albuterol 3 mg 3 ml inhalation Q4H PRN shortness 02/02/25 Unknown History (2.5 mg base)/3 mL nebulization of breath soln metoprolol succinate 25 mg capsule 25 mg PO DAILY 02/02/25 Unknown History sprinkle, ext. release 24 hr (Kapsp[place] Sprinkle) clopidogrel 75 mg tablet 75 mg PO DAILY 90 days #0 tabs 02/11/25 Unknown Rx arginine 7 gram-glutamine 7 PO BID 02/27/25 Unknown History gram-calcium HMB 1.5 gram oral powder pack (Luis) insulin glargine 100 unit/mL (3 18 unit subcut DAILY diabetes 02/27/25 Unknown History mL) subcutaneous pen (Lantus Solostar U-100 Insulin) paroxetine HCl 20 mg tablet (Paxil) 20 mg PO DAILY 02/27/25 Unknown History insulin lispro 100 unit/mL 1 sliding scale dose subcut 03/03/25 Unknown History subcutaneous pen (Humalog KwikPen USEASDIRECTD (U-100) Insulin) acetaminophen 325 mg tablet 650 mg PO BID PAIN AND FEVER 03/22/25 Unknown History cholecalciferol (vitamin D3) 1,250 1,250 mcg PO QWEEK SUPPLEMENT 03/22/25 Unknown History mcg (50,000 unit) tablet guaifenesin 100 mg/5 mL oral liquid 200 mg PO Q6H PRN congestion 03/22/25 Unknown History loperamide 2 mg tablet 2 mg PO Q4H PRN loose stool 03/22/25 Unknown History magnesium hydroxide 400 mg/5 mL 30 ml PO QDAY PRN constipation 03/22/25 Unknown History oral suspension (Milk of Magnesia) Allergy/AdvReac Type Severity Reaction Status Date / Time propofol AdvReac Other Verified 06/15/25 13:10 Family History Mother Heart disease Diabetes Hypertension Father Heart disease Surgical History History of AAA (abdominal aortic aneurysm) repair History of foot surgery Hx of abdominal surgery H/O aortic valve repair History of thoracic aortic aneurysm repair Social History housing: house current occupational status: retired Smoking Status: Never smoker alcohol intake: never substance use type: does not use Physical Exam Const General Appearance: lethargic HEENT normocephalic and head/scalp atraumatic Eyes PERRL Neck supple and No nodes Resp normal air movement and clear to auscultation bilaterally Cardio Negative for regular rate or regular rhythm GI soft to palpation, non-tender and non-distended Extremity General Extremity: edema Skin Skin Narrative: reviewed wound photos Neuro Neuro Narrative: wakes briefly to light physical stim Lab / Micro Data Attestation: I reviewed the patient's lab results. 06/16/25 05:58 06/16/25 05:58 Labs: Laboratory Results - last 24 hr 06/15/25 13:43: WBC 14.7 H, RBC 4.67, Hgb 12.4 L, Hct 39.0 L, MCV 83.5, MCH 26.6 L, MCHC 31.8 L, RDW Std Deviation 42.0, RDW Coeff of Nathaniel 13.9, Plt Count 255, MPV 9.3, Immature Gran % (Auto) 1.000 H, Neut % (Auto) 76.2 H, Lymph % (Auto) 12.7 L, Bullock % (Auto) 6.4, Eos % (Auto) 3.2, Baso % (Auto) 0.5, Absolute Neuts (auto) 11.2 H, Absolute Lymphs (auto) 1.87, Nucleated RBC % 0, ESR 19, Sodium Cancelled, Potassium Cancelled, Chloride Cancelled, Carbon Dioxide Cancelled, Anion Gap Cancelled, BUN Cancelled, Creatinine Cancelled, Est GFR (MDRD) Non-Af Cancelled, BUN/Creatinine Ratio Cancelled, Glucose Cancelled, Calcium Cancelled, C-React Prot Ext Range 13.70 H 06/15/25 13:44: Lactic Acid 1.8 06/15/25 14:38: Sodium 137, Potassium 5.0, Chloride 102, Carbon Dioxide 25.4, Anion Gap 10, BUN 47 H, Creatinine 1.52 H, Estim Creat Clear Calc 53.18, Est GFR (MDRD) Non-Af 47 L, BUN/Creatinine Ratio 31.1 H, Glucose 191 H, Calcium 9.7 06/15/25 23:49: POC Glucose 158 H 06/16/25 05:58: WBC 12.4 H, RBC 4.20 L, Hgb 11.2 L, Hct 34.7 L, MCV 82.6, MCH 26.7 L, MCHC 32.3, RDW Std Deviation 39.9, RDW Coeff of Nathaniel 13.2, Plt Count 225, MPV 9.1, Immature Gran % (Auto) 1.000 H, Neut % (Auto) 76.2 H, Lymph % (Auto) 13.0 L, Bullock % (Auto) 6.6, Eos % (Auto) 2.9, Baso % (Auto) 0.3, Absolute Neuts (auto) 9.5 H, Absolute Lymphs (auto) 1.62, Nucleated RBC % 0, Sodium 140, Potassium 3.4, Chloride 106, Carbon Dioxide 21.5, Anion Gap 13, BUN 37 H, Creatinine 1.41 H, Estim Creat Clear Calc 56.86, Est GFR (MDRD) Non-Af 51 L, BUN/Creatinine Ratio 26.2 H, Glucose 161 H, Hemoglobin A1c 7.2 H, Calcium 9.4 06/16/25 06:30: POC Glucose 164 H 06/16/25 07:50: S.aureus Protein A PCR NEGATIVE, MRSA (PCR) Negative 06/16/25 11:30: POC Glucose 173 H Micro: Microbiology 06/16/25 07:50 Wound - Axilla, Right Gram Stain - Final 06/15/25 17:25 Wound - Left Foot Gram Stain - Final 06/15/25 17:25 Wound - Left Foot Wound Culture - Preliminary Mixed Gram Pos & Gram Neg Org Imaging Radiology Impression Foot X-Ray 06/15/25 13:52 IMPRESSION: Findings suggestive of osteomyelitis involving the distal portion of the proximal phalanx of the 5th toe with evidence of soft tissue ulceration and swelling. Degenerative changes of the tarsal bone suggestive of possible Charcot's deformity. Reading Location: [id number]
--- NOTE | 2025-06-16 19:37 | PN_ITS ---
Subjective Subjective Patient was seen today for follow up left 5th toe infection. He is resting comfortably in bed, with at bedside. He had no new complaints. No f/c/n/v. Objective Data Objective Data Vital Signs: Vital Signs Temp Pulse Resp BP Pulse Ox O2 Del Method O2 Flow Rate 97.8 F 65 16 121/59 H 97 Room Air 2 06/16/25 16:00 06/16/25 16:00 06/16/25 16:00 06/16/25 16:00 06/16/25 16:00 06/16/25 16:32 06/16/25 08:41 Oxygen Flow Rate (L/min) 2 Oxygen Delivery Method Room Air Weight: 109 kg Body Mass Index (BMI) 31.7 Intake & Output: Intake and Output for Last 24 Hours 06/14/25 06/15/25 06/16/25 23:59 23:59 23:59 Intake Total 1590 / 1590 770 / 770 Output Total 1650 / 1650 Balance 1590 / 990 -880 / -880 Lab / Micro Data 06/16/25 05:58 06/16/25 05:58 Labs: Laboratory Results - last 24 hr 06/15/25 23:49: POC Glucose 158 H 06/16/25 05:58: WBC 12.4 H, RBC 4.20 L, Hgb 11.2 L, Hct 34.7 L, MCV 82.6, MCH 26.7 L, MCHC 32.3, RDW Std Deviation 39.9, RDW Coeff of Nathaniel 13.2, Plt Count 225, MPV 9.1, Immature Gran % (Auto) 1.000 H, Neut % (Auto) 76.2 H, Lymph % (Auto) 13.0 L, Oldham % (Auto) 6.6, Eos % (Auto) 2.9, Baso % (Auto) 0.3, Absolute Neuts (auto) 9.5 H, Absolute Lymphs (auto) 1.62, Nucleated RBC % 0, Sodium 140, Potassium 3.4, Chloride 106, Carbon Dioxide 21.5, Anion Gap 13, BUN 37 H, C reatinine 1.41 H, Estim Creat Clear Calc 56.86, Est GFR (MDRD) Non-Af 51 L, B UN/Creatinine Ratio 26.2 H, Glucose 161 H, Hemoglobin A1c 7.2 H, Calcium 9.4 06/16/25 06:30: POC Glucose 164 H 06/16/25 07:50: S.aureus Protein A PCR NEGATIVE, MRSA (PCR) Negative 06/16/25 11:30: POC Glucose 173 H 06/16/25 16:16: POC Glucose 165 H Micro: Microbiology 06/16/25 07:50 Wound - Axilla, Right Gram Stain - Final 06/15/25 17:25 Wound - Left Foot Gram Stain - Final 06/15/25 17:25 Wound - Left Foot Wound Culture - Preliminary Mixed Gram Pos & Gram Neg Org Physical Exam Const alert and no apparent distress Constitutional Narrative: Left 5th toe with chronic ulcer, no acute changes. Assessment & Plan Assessment/Plan (1) Chronic multifocal osteomyelitis of left foot: (2) Cellulitis of left toe: (3) Type 2 diabetes mellitus with foot ulcer: QUALIFIERS: Diabetic foot ulcer location: toe Laterality: left N on-pressure ulcer stage: with necrosis of bone Qualified Code(s): E11.621 - Type 2 diabetes mellitus with foot ulcer; L97.524 - Non-pressure chronic ulcer of other part of left foot with necrosis of bone PLAN: Plan Evaluation performed. Reviewed diagnostic data. Ulceration left 5th toe down to bone, with xray evidence of osteomyelitis. There is no evidence of gas on xrays. A deep wound culture has been obtained and sent to microbiology for further evaluation. Patient on IV antibiotics with Infectious Disease on consult. Plan for left 5th toe amputation tomorrow. NPO after midnight. Peripheral arterial disease: Chronic - no evidence of acute ischemia - vascular surgery has been consulted and evaluated patient - ok to proceed from vascular standpoint. Wound care left 5th toe: Betadine soln and gauze dressing - change daily. Keep bilateral heels offloaded to help prevent break down while in bed.
[2025-06-17] VITALS (16 sets, daily range): BP systolic 121–156; BP diastolic 52–87; PULSE 58–66; RESP 15–18; TEMP 36.4–37.2; O2SAT 94–99; BMI 31.8
[2025-06-17 03:44] LABS: Hematocrit 32.8 % (40-54); Hemoglobin 10.4 g/dL (13.0-16.5); Immature Granulocytes Count 0.110 X10^3/uL (0.0-0.0); Mean Corp Hgb Conc 31.7 g/dL (32-36); Mean Corpuscular Volume 83.7 fL (80-94); Mean Platelet Vol. 9.1 fl (6.2-12.0); NRBC Flagged by Analyzer 0 % (0-5); Platelet Count 233 K/mm3 (150-450); RBC Distribution Width CV 13.6 % (11.6-14.6); RBC Distribution Width SD 41.6 fl (35.1-43.9); Red Blood Count 3.92 M/mm3 (4.6-6.2); White Blood Count 9.6 K/mm3 (4.4-11.0)
[2025-06-17 04:03] LABS: Vancomycin, Trough Level 13.9 ug/mL (5.0-15.0)
[2025-06-17 04:04] LABS: Anion Gap 12 (5-15); BUN 31 mg/dL (4-19); BUN/Creat Ratio 22.6 RATIO (10-20); Calcium,Total 9.4 mg/dL (7.6-11.0); Carbon Dioxide 22.4 mmol/L (21.0-32.0); Chloride 106 mmol/L (98-108); Estimated Creatinine Clearance 57.62 ml/min (50-250); Glucose 156 mg/dL (70-99); Potassium 3.5 mmol/L (3.3-5.1)
--- NOTE | 2025-06-17 04:22 | PCM.RX.CS ---
Consult Antibiotic Management Pharmacy has been consulted to manage selected antibiotic: Vancomycin Type of Intervention Type of Consult: Follow-up Suspected Infection Suspected Infection: Osteomyelitis Labs Labs: Sodium 141 mmol/L (133-145) 06/17/25 03:35 Potassium 3.5 mmol/L (3.3-5.1) 06/17/25 03:35 Chloride 106 mmol/L (98-108) 06/17/25 03:35 Carbon Dioxide 22.4 mmol/L (21.0-32.0) 06/17/25 03:35 Anion Gap 12 (5-15) 06/17/25 03:35 BUN 31 mg/dL (4-19) H 06/17/25 03:35 Creatinine 1.39 mg/dL (0.70-1.20) H 06/17/25 03:35 Est GFR (MDRD) Non-Af 52 (>60) L 06/17/25 03:35 BUN/Creatinine Ratio 22.6 RATIO (10-20) H 06/17/25 03:35 Glucose 156 mg/dL (70-99) H 06/17/25 03:35 Vancomycin Trough 13.9 ug/mL (5.0-15.0) 06/17/25 03:35 Microbiology Microbiology: Microbiology 06/16/25 07:50 Wound - Axilla, Right Gram Stain - Final 06/15/25 17:25 Wound - Left Foot Gram Stain - Final 06/15/25 17:25 Wound - Left Foot Wound Culture - Preliminary Mixed Gram Pos & Gram Neg Org Dosing Weight Weight used for dosin kg Estimated Creatinine Clearance Estimated Creatinine Clearance: 57 Goal Trough Goal Trough: 15-20 mcg/mL Pharmacy Plan for Drug Dosing Pharmacy Plan for Drug Dosing: Vancomycin trough level of 13.9, drawn 11.75hrs post-dose, was below the target range of 15-20. Will increase dose to 1000mg q12h, and will draw another trough level prior to fourth dose of the new regimen. Pharmacy Service will continue to monitor and adjust dosing as required. Follow-Up Labs Follow-Up Labs: Trough: Vancomycin Date/Time Labs Ordered Labs to be done on [date and time ordered]: 06/18/25 @1600
[2025-06-17] MEDS: Vancomycin HCl 1,000 MG in 0.9% Normal Saline (250mL Bag) 250 ML 250 MG IV ×2 (04:47→16:18)
[2025-06-17] MEDS: Piperacil/Tazobactam 3.375 GM in 0.9% Normal Saline (50mL MB+) 50 ML IV ×2 (05:55→20:57)
[2025-06-17] MEDS: Metoprolol(XL)Succ 25 MG Tablet PO (09:11)
--- NOTE | 2025-06-17 10:46 | PN_ITS ---
Subjective Subjective Patient seen and examined. He had his nurse by his bedside. He has no active complaints. He had an uneventful night. He is due for surgery by podiatry today. Review of systems otherwise negative. # Remained hemodynamically stable. Objective Data Objective Data Vital Signs: Vital Signs Temp Pulse Resp BP Pulse Ox O2 Del Method O2 Flow Rate 98.0 F 62 16 131/66 H 98 Nasal Cannula 2 06/17/25 09:00 06/17/25 09:11 06/17/25 09:00 06/17/25 09:00 06/17/25 09:00 06/17/25 09:12 06/17/25 09:12 Oxygen Flow Rate (L/min) 2 Oxygen Delivery Method Nasal Cannula Weight: 240 lb 4.862 oz Body Mass Index (BMI) 31.7 Intake & Output: Intake and Output for Last 24 Hours 06/15/25 06/16/25 06/17/25 23:59 23:59 23:59 Intake Total 1590 / 1590 820 / 820 320 / 320 Output Total 1650 / 2050 900 / 900 Balance 1590 / 990 -830 / -1230 -580 / -580 Lab / Micro Data 06/17/25 03:35 06/17/25 03:35 Labs: Laboratory Results - last 24 hr 06/16/25 11:30: POC Glucose 173 H 06/16/25 16:16: POC Glucose 165 H 06/16/25 21:45: POC Glucose 190 H 06/17/25 01:25: POC Glucose 173 H 06/17/25 03:35: WBC 9.6, RBC 3.92 L, Hgb 10.4 L, Hct 32.8 L, MCV 83.7, MCH 26.5 L, MCHC 31.7 L, RDW Std Deviation 41.6, RDW Coeff of Nathaniel 13.6, Plt Count 233, MPV 9.1, Immature Gran % (Auto) 1.100 H, Neut % (Auto) 65.2, Lymph % (Auto) 21.2, Coffey % (Auto) 7.3, Eos % (Auto) 4.8, Baso % (Auto) 0.4, Absolute Neuts (auto) 6.3, Absolute Lymphs (auto) 2.04, Nucleated RBC % 0, Sodium 141, Potassium 3.5, Chloride 106, Carbon Dioxide 22.4, Anion Gap 12, BUN 31 H, C reatinine 1.39 H, Estim Creat Clear Calc 57.62, Est GFR (MDRD) Non-Af 52 L, B UN/Creatinine Ratio 22.6 H, Glucose 156 H, Calcium 9.4, Vancomycin Trough 13.9 06/17/25 04:03: POC Glucose 145 H 06/17/25 06:28: POC Glucose 140 H 06/17/25 09:08: POC Glucose 142 H Micro: Microbiology 06/15/25 17:25 Wound - Left Foot Gram Stain - Final 06/15/25 17:25 Wound - Left Foot Wound Culture - Preliminary Gram negative sherman Staphylococcus aureus Streptococcus group G 06/15/25 17:25 Wound - Left Foot Anaerobic Culture - Preliminary Checking for anaerobes, further studies to follow. 06/16/25 07:50 Wound - Axilla, Right Gram Stain - Final 06/16/25 07:50 Wound - Axilla, Right Wound Culture - Preliminary Gram negative sherman Physical Exam Const alert and no apparent distress Constitutional Narrative: Resting comfortably in bed. Nontoxic. General Appearance: cooperative Orientation / Consciousness: lethargic HEENT normocephalic, head/scalp atraumatic and moist oral mucous membranes Eyes EOMs intact bilaterally Neck supple and no JVD Lymph Lymphatic: no lymphedema noted Resp Resp Narrative: Mildly diminished breath sounds bibasilarly. No wheezes or crackles. On room air. Cardio regular rate, regular rhythm, S1 normal heart sound, S2 normal heart sound and no murmurs GI normal to inspection, nondistended, normoactive bowel sounds, soft to palpation, non-tender and non-distended Extremity Extremity Narrative: Left lower extremity wrapped in bandage. Skin Skin Narrative: as under extremity Neuro Neuro Narrative: lethargic Sensorium / Orientation: awake and alert Motor Exam: general weakness Psych affect normal Mood & Affect: flat affect Assessment & Plan Assessment/Plan (1) Cellulitis of left toe: (2) Acute osteomyelitis of metatarsal bone of left foot: PLAN: Plan # Acute osteomyelitis of the left foot * Is more acute on chronic osteomyelitis. Patient did have surgery January 2025 for wound infection and wound is still not healed. Wound cultures ordered. On IV vancomycin and Zosyn. * Podiatry and ID consulted as well as vascular surgery. * Had left lower extremity arterial duplex done today. Results are pending. PT OT on board. Fall precautions * Foot x-ray on admission showed evidence of osteomyelitis involving the distal portion of the proximal phalanx of the fifth toe with evidence of soft tissue ulceration and swelling and degenerative changes of the tarsal bone suggestive of possible Charcot deformity. * for surgery by podiatry today * had vascular study of LLE which showed patient LLE arteries patent with normal velocities nad waveforms throughout, with no evidence of stenosis. #Type 2 diabetes mellitus: * On Lantus. Insulin sliding scale. Accu-Cheks ACHS. * #Hyperlipidemia: On statin #History of peripheral artery disease: Vascular surgery on board. 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 On metoprolol BPH: On Flomax DVT prophylax: SCDs for now until Eliquis can be resumed. Charges/Coding Visit Charges Inpatient E&M: 19573 Subs Hosp L2
[2025-06-17] MEDS: Lactated Ringers 1,000 ML 15 ML IV (13:07)
--- NOTE | 2025-06-17 13:20 | PCM.PRE.AN2 ---
ASA Classification* ASA Classification ASA Classification: 3 Assessment & Plan Anesthesia* Anesthesia Assessment Anesthesia Assessment: Discussed sedation and/or anesthesia options, risks, benefits, and alternatives with patient/parents/legal guardian/POA. Questions invited. The patient/parents/legal guardian/POA seems to understand and agrees to proceed with anesthesia plan. Reviewed the physical assessment, medical history, allergy history and patient home medications list prior to surgery/procedure/anesthetic and documented any changes. Performed airway and anesthesia risk assessments. Anesthesia Type Anesthesia Type: MAC History Source History Obtained from:: Patient and Chart Anesthesia Focused Assessment* Temperature: 98.4 F Pulse Rate: 61 Blood Pressure: 129/69 Respiratory Rate: 16 Pulse Ox: 97 Oxygen Delivery Method: Room Air Oxygen Flow Rate (L/min): 2 Airway Assessment Mouth opens: >3 cm Mallampati Score: IV Teeth Condition: Partial (Upper partials out.) Neck Range of motion (ROM): Limited ROM (Somewhat Decreased) Labs Anesthesia Preop lab: CBC WBC, (4.4-11.0) 9.6 K/mm3 Today, 03:35 RBC, (4.6-6.2) 3.92 M/mm3 L Today, 03:35 Hgb, (13.0-16.5) 10.4 g/dL L Today, 03:35 Hct, (40-54) 32.8 % L Today, 03:35 Plt Count, (150-450) 233 K/mm3 Today, 03:35 CHEMISTRY Potassium, (3.3-5.1) 3.5 mmol/L Today, 03:35 Sodium, (133-145) 141 mmol/L Today, 03:35 Magnesium, (1.5-2.2) 1.7 mg/dL 02/03/25, 06:31 Phosphorus, (2.5-4.9) 2.6 mg/dL 01/27/23, 18:20 BUN, (4-19) 31 mg/dL H Today, 03:35 Creatinine, (0.70-1.20) 1.39 mg/dL H Today, 03:35 Glucose, (70-99) 156 mg/dL H Today, 03:35 POC Glucose, (74-106) 159 mg/dL H Today, 12:26 TSH, (0.300-4.200) 1.180 uIU/mL 08/20/25, 06:48 COAG PT, (11.7-14.9) 15.1 SECONDS H 02/27/25, 19:25 Pre-Assessment Diagnosis/Proposed Procedure Planned Operative Procedure(s): Left fifth toe amputation. Anesthesia History Anesthesia History - ceramic coater machine: Anesthesia History - ceramic coater machine Hx Hospitalization Yes: GI BLEED 05/30/23 11:36 Any Problems With Anesthesia Yes: ALLERGY TO PROPIFOL 02/05/25 02:17 Cholinesterase deficiency No 02/05/25 02:17 You/Your Family Experience No 02/05/25 02:17 fever (hyperthermia) with Relationship Recent Exposure to Contagious No 02/05/25 02:17 Disease Does patient have nerve No 02/05/25 02:17 stimulator Patient instructed to have device shut off --Does patient have Pacemaker No 06/17/25 12:15 or ICD? When Was Last Pacemaker Check QUESTION #4 FULL TEXT: You/Your Family Experience fever (hyperthermia) with Anesthesia Last Oral Intake Last Oral intake: Last Oral Intake NPO since 00:00 06/17/25 12:15 Meds taken in AM with sips of Yes 06/17/25 12:15 water? Meds patient instructed to metoprolol 06/17/25 12:15 take am of surgery Any additional information?: Yes Meds taken in AM with sips of water?: Yes PONV PONV - ceramic coater machine: PONV - ceramic coater machine Female HX of Motion Sickness HX of N/V After Surgery Non-Smoker Duration of Surgery greater than 60 minutes Number of Risk Factors PONV Score Height & Weight Height & Weight: Anesthesia: Height & Weight Height 6 ft 0.83 in 06/17/25 12:15 Weight: 109 kg 06/17/25 12:15 Body Mass Index (BMI) 31.8 06/17/25 12:15 Respiratory Assessment Respiratory Assessment - ceramic coater machine: Respiratory Tract Infection Hx - ceramic coater machine Hx Respiratory Tract Infection No 02/05/25 02:17 Any additional information?: Yes Hx Respiratory Tract Infection: No STOP Sleep Apnea STOP Sleep Apnea - ceramic coater machine: STOP Sleep Apnea - ceramic coater machine Hx Hypertension Yes 06/16/25 13:10 Hx Sleep Apnea Yes 06/15/25 17:13 CPAP No 06/15/25 17:13 BIPAP No 06/15/25 17:13 Do you snore loudly (louder than talking or can be heard Do you often feel tired/ fatigued/ sleepy during daytime? Has anyone observed you stop breathing during sleep? STOP Results Positive 06/15/25 17:13 QUESTION #5 FULL TEXT : Do you snore loudly (louder than talking or can be heard through closed doors)? 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 Specify any problems Hx of Preganancy in last 3 N/A 06/15/25 17:13 Months Nurse Filling Out Transfusion RKARPER 06/15/25 17:13 & Questions: Date: 06/15/25 06/15/25 17:13 Time: 17:14 06/15/25 17:13 Patient unable to answer at this time (ie. confused, unrespo /Reproduction History /Reproductive History - ceramic coater machine: /Reproductive Hx- ceramic coater machine Hx Now Gestational Age (in weeks): EDC: Hx Hx Para Hx Section SAB Does the father of the baby or his family experience fever w Father of the baby Malignant Hypertension history comment Active Medications Active Medications: Current Medications Generic Name Dose Route Start Last Admin Trade Name Freq PRN Reason Stop Dose Admin Acetaminophen 650 mg 06/15/25 22:00 06/16/25 21:41 Acetaminophen 325 Mg Tablet PO 650 mg BID FRED Administration Albuterol/Ipratropium 3 ml 06/15/25 16:54 Ipratropium/Albuterol Sulfate 3 Ml Ampul.Neb INHALATION Q4H PRN SHORTNESS OF BREATH Atorvastatin Calcium 40 mg 06/15/25 22:00 06/16/25 21:41 Atorvastatin Calcium 40 Mg Tablet PO 40 mg QHS FRED Administration Bisacodyl 10 mg 06/15/25 16:54 Bisacodyl 10 Mg Suppository RC DAILY PRN CONSTIPATION Calamine/Phenol 1 applic 06/16/25 22:00 06/16/25 21:47 Menthol/Lanolin/Calamine/Znox 113 Gm Tube TOPICAL 1 applic BID FRED Administration Protocol Ergocalciferol 1.25 mg 06/22/25 08:00 Ergocalciferol 1.25 Mg (50, 000 Unit) Capsule PO QWEEK FRED Ferrous Sulfate 325 mg 06/16/25 12:00 06/16/25 11:31 Ferrous Sulfate 325 Mg Tablet PO 325 mg DAILY@1200 FRED Administration Glucagon 1 mg 06/15/25 16:54 Glucagon 1 Mg/Ml Syringe IM X1 PRN Hypoglycemia Protocol Guaifenesin 10 ml 06/15/25 16:54 Guaifenesin 10 Ml Udc (200mg/10ml) PO Q6H PRN CONGESTION Dextrose 250 mls @ 0 mls/hr 06/15/25 16:54 Dextrose 10%-Water IV .Q0M PRN HYPOGLYCEMIA Protocol As Directed Piperacillin Sod/Tazobactam 50 mls @ 12.5 mls/hr 06/15/25 22:00 06/17/25 09:55 Sod 3.375 gm/ Sodium Chloride IV Infused Q8 FRED Infusion Vancomycin IV-PHARMACY TO DOSE 500 mls @ 250 mls/hr 06/15/25 16:54 1 each/ Sodium Chloride IV X1 PRN Rx to Dose Protocol Sodium Chloride 250 mls @ 15 mls/hr 06/15/25 16:55 06/16/25 07:30 IV 0 mls/hr .[id number] PRN Infusion Saline Flush Sodium Chloride 250 mls @ 15 mls/hr 06/15/25 16:55 IV .[id number] PRN Additional IVPB Infusion Vancomycin HCl 1,000 mg/ 270 mls @ 250 mls/hr 06/17/25 04:30 06/17/25 06:30 Sodium Chloride IV Infused Q12H FRED Infusion Lactated Ringer's 1,000 mls @ 15 mls/hr 06/17/25 13:00 06/17/25 13:07 IV 15 mls/hr .Q48H FRED Administration Insulin Glargine 9 unit 06/17/25 10:00 Insulin Glargine-Yfgn 100 Unit/Ml Pen SC DAILY FRED Insulin Human Lispro 0 unit 06/15/25 22:00 06/17/25 06:30 Insulin Lispro 100 Unit/Ml Insuln.Pen SC Not Given ACHS FRED Protocol Loperamide HCl 2 mg 06/15/25 17:00 Loperamide 2 Mg Capsule PO Q4H PRN loose stool Losartan Potassium 50 mg 06/16/25 10:00 06/16/25 09:47 Losartan Potassium 50 Mg Tablet PO 50 mg DAILY FRED Administration Protocol Magnesium Hydroxide 30 ml 06/16/25 10:00 Magnesium Hydroxide 30 Ml Udc PO DAILY PRN constipation Melatonin 3 mg 06/15/25 16:54 Melatonin 3 Mg Tablet PO QHS PRN INSOMNIA Memantine 10 mg 06/15/25 22:00 06/16/25 21:42 Memantine Hydrochloride 10 Mg Tablet PO 10 mg BID FRED Administration Metoprolol Succinate 25 mg 06/16/25 10:00 06/17/25 09:11 Metoprolol(Xl)Succ 25 Mg Tablet PO 25 mg DAILY FRED Administration Ondansetron HCl 4 mg 06/15/25 16:54 Ondansetron 4 Mg/2 Ml Vial IV Q8H PRN PRN NAUSEA/VOMITING Pantoprazole Sodium 40 mg 06/15/25 22:00 06/16/25 21:41 Pantoprazole Sodium 40 Mg Tablet PO 40 mg BID FRED Administration Paroxetine HCl 20 mg 06/16/25 10:00 06/16/25 09:48 Paroxetine 20 Mg Tablet PO 20 mg DAILY FRED Administration Sodium Chloride 10 - 40 ml 06/15/25 16:55 06/15/25 18:48 0.9% Saline Lock 10 Ml Syringe IV 10 ml UD PRN Administration SALINE FLUSH Sucralfate 1 gm 06/16/25 07:00 06/17/25 05:58 Sucralfate 1 Gm Tablet PO Not Given 0700,1100,1600 [facility] Tamsulosin HCl 0.4 mg 06/15/25 22:00 06/16/25 21:41 Tamsulosin Hcl 0.4 Mg Capsule PO 0.4 mg QHS FRED Administration Vancomycin Protocol 1 lab 06/18/25 15:00 Vancomycin Trough/Random Due MC 06/18/25 17:00 DAILY FRED PFSH Medical History MRSA (methicillin resistant staph aureus) culture positive History of stress test History of echocardiogram Cardiology follow-up encounter Uses wheelchair Difficulty swallowing History of ulceration History of GI bleed History of renal disease Prostate disease Pulmonary embolism High cholesterol Atrial tachycardia Anxiety Depression Kidney stones GI bleed Non-smoker Atrial fibrillation AAA (abdominal aortic aneurysm) Dementia Bacteremia Subtherapeutic international normalized ratio (INR) UTI (urinary tract infection) Presence of cardiac pacemaker Sick sinus syndrome Anemia Second degree AV block, Mobitz type II Supratherapeutic INR Syncope Acute encephalopathy Weakness Confusion History of pulmonary embolism NSTEMI, initial episode of care Valvular heart disease Amputation of right great toe Leukocytosis Hyperkalemia COVID-19 Ureterolithiasis Diabetes Aortic aneurysm without rupture HTN (hypertension) Lactic acidosis Upper gastrointestinal bleed Diabetic neuropathy Osteomyelitis Ulcer of right great toe due to diabetes mellitus Pulmonary emboli HLD (hyperlipidemia) RBBB (right bundle 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) Home Medications ?Medication ?Instructions ?Recorded ?Last Taken ?Type losartan 50 mg tablet 50 mg PO DAILY blood pressure 03/24/18 06/01/24 History atorvastatin 40 mg tablet 40 mg PO QHS cholesterol 05/22/18 05/31/24 History tamsulosin 0.4 mg capsule 0.4 mg PO QHS PROSTATE 03/02/22 05/31/24 History pantoprazole 40 mg tablet,delayed 40 mg PO BID #60 tabs 02/05/23 06/01/24 Rx release sucralfate 1 gram tablet 1 g PO 0700,1100,1600 #90 tabs 02/05/23 06/01/24 Rx melatonin 3 mg tablet 3 mg PO QHS PRN Insomnia 02/10/23 02/10/23 History memantine 10 mg tablet 10 mg PO BID #0 tabs 02/13/23 06/01/24 Rx bisacodyl 10 mg rectal suppository 10 mg NM DAILY PRN constipation 05/30/23 Unknown History ferrous sulfate 325 mg (65 mg 325 mg PO DAILY 10/07/23 06/01/24 History iron) tablet apixaban 5 mg tablet (Eliquis) 5 mg PO BID #60 tabs 03/03/24 05/30/24 Rx ipratropium 0.5 mg-albuterol 3 mg 3 ml inhalation Q4H PRN shortness 02/02/25 Unknown History (2.5 mg base)/3 mL nebulization of breath soln metoprolol succinate 25 mg capsule 25 mg PO DAILY 02/02/25 Unknown History sprinkle, ext. release 24 hr (Kapspargo Sprinkle) clopidogrel 75 mg tablet 75 mg PO DAILY 90 days #0 tabs 02/11/25 Unknown Rx arginine 7 gram-glutamine 7 PO BID 02/27/25 Unknown History gram-calcium HMB 1.5 gram oral powder pack (Luis) insulin glargine 100 unit/mL (3 18 unit subcut DAILY diabetes 02/27/25 Unknown History mL) subcutaneous pen (Lantus Solostar U-100 Insulin) paroxetine HCl 20 mg tablet (Paxil) 20 mg PO DAILY 02/27/25 Unknown History insulin lispro 100 unit/mL 1 sliding scale dose subcut 03/03/25 Unknown History subcutaneous pen (Humalog KwikPen USEASDIRECTD (U-100) Insulin) acetaminophen 325 mg tablet 650 mg PO BID PAIN AND FEVER 03/22/25 Unknown History cholecalciferol (vitamin D3) 1,250 1,250 mcg PO QWEEK SUPPLEMENT 03/22/25 Unknown History mcg (50,000 unit) tablet guaifenesin 100 mg/5 mL oral liquid 200 mg PO Q6H PRN congestion 03/22/25 Unknown History loperamide 2 mg tablet 2 mg PO Q4H PRN loose stool 03/22/25 Unknown History magnesium hydroxide 400 mg/5 mL 30 ml PO QDAY PRN constipation 03/22/25 Unknown History oral suspension (Milk of Magnesia) Allergy/AdvReac Type Severity Reaction Status Date / Time propofol AdvReac Other Verified 06/17/25 13:04 Family History Mother Heart disease Diabetes Hypertension Father Heart disease Surgical History History of AAA (abdominal aortic aneurysm) repair History of foot surgery Hx of abdominal surgery H/O aortic valve repair History of thoracic aortic aneurysm repair Social History housing: house current occupational status: retired Smoking Status: Never smoker alcohol intake: never substance use type: does not use Review of Systems (Anesthesia) ROS Narrative System reviewed and no additional complaints, except as documented.
--- NOTE | 2025-06-17 13:30 | AMP_PTH ---
PATIENT: RICHARD ROY LOC: MS3 U#:[id number] AGE/SX: 79/M ROOM: [facility] [place] RE06/15/[address]: Dr. Aneesh Sutton DO : 1945 BED: 1 DIS: 06/21/2025 SPEC #: [id number] RECD: 06/17/25 14:39 STATUS: VINNIE REQ #: [id number] CAMILA: 06/17/25 13:[address]: Kee Mejia DEPT: SURGICAL PATHOLOGY RECD BY: Moise Landon ENTERED: 06/18/25 08:42 SP TYPE: Amputation OTHR DR: Dr. Walter Becker Sr., DO DO Dr. Aneesh Bee MD Dr. Nana Yaa Koram, MD Dr. Robert Leininger, MD Tissues: A - Toe, NOS Procedures: Decalcification bone/plaque Surgery Specimen Level IV Comments: @ Ordering doctor for DEC edited from to @ by YANCY at 06/18/25 43 @ Ordering doctor for SUIV edited from to @ by YANCY at 06/18/25 43 @ Submitting doctor edited from to @ by YANCY at 06/18/25 0843 HEADER OPERATION: Amputation 5th toe PRE-OP DIAGNOSIS: Chronic multifocal osteomyelitis of left foot, cellulitis of left toe, type 2 diabetes mellitus with foot ulcer TISSUE SUBMITTED: A - Left 5th toe MICROSCOPIC DIAGNOSIS A. Left 5th toe, amputation: - Osteomyelitis, involving the surgical margin. - Cutaneous ulcer with soft tissue suppurative inflammation involving the soft tissue surgical margin. MICROSCOPIC DESCRIPTION Slides are reviewed. GROSS DESCRIPTION A. Received in formalin labeled with the patient's name and date of . Designated as left fifth toe is a 3.5 x 2.0 x 1.9 cm partial, distal digit anteriorly surfaced by a nail. The skin is rivas and somewhat peeling with a 1.1 x 0.8 cm somewhat erythematous eschar on the lateral aspect. The soft tissue and bone at the resection margin have a dark brown-black discoloration. Sectioning reveals rivas-red somewhat brittle medullary bone. Chef Passenger Vessel sections are submitted in 2 cassettes, following decalcification as follows: A1: Full-thickness cross-section A2: Eschar [place] 06/17/2025 CPT:22018,67274
[2025-06-17] MEDS: dexMEDEtomidine 200 MCG/2 ML ML IV (14:03)
[2025-06-17] MEDS: Piperacil/Tazobactam 3.375 GM/50 ML ML IV (14:06)
[2025-06-17] MEDS: Midazolam 2 MG/2 ML Syringe 1 MG IV (14:10)
--- NOTE | 2025-06-17 14:32 | PCM.OPRPT ---
Operative Report (Standard) Operative Information Date of Procedure: 06/17/25 Pre-Operative Diagnosis: Osteomyelitis left 5th toe Post-Operative Diagnosis: Same Surgery/Procedure Performed: Amputation of left 5th toe leasing professional: No Type of Anesthesia: Local MAC RN Documented Start/Stop Times: Operation Date: 06/17/25 13:30 Case Time Into Pre-Op 06/17/25 12:38 Out of Pre-Op 06/17/25 13:47 Anesthesia Start 06/17/25 13:51 Into Room 06/17/25 13:51 Procedure Start 06/17/25 14:08 Procedure End 06/17/25 14:31 Anesthesia End 06/17/25 14:33 Out of Room 06/17/25 14:33 Into Recovery 06/17/25 14:36 Procedure Start Time: 14:08 Procedure Stop Time: 14:31 Select all DRAINS/GRAFTS/IMPLANTS that apply: None Estimated Blood Loss: 1mL Specimen collected: Yes Description of specimen(s) removed: Left 5th toe - sent to pathology Bone from left 5th toe - sent to microbiology Description of surgery: Indications: Patient is a 79 year old gentleman who has history of left 5th ray infection s/p debridement in January 2025, has been healing but slow, recently left 5th toe turned red with some swelling, and has wound which probes to the base of the 5th toe proximal phalanx with xrays showing osteomyelitis. Patient has been admitted for IV antibiotics and further management. After discussing with him and his it was elected to proceed with left 5th toe amputation. He does have history of peripheral arterial disease with vascular surgery following with no plans for intervention at this time. The procedure was reviewed with him as well as the possible benefits vs risks, goals, expectations as well. Patient informed on risks that include but not limited to nonhealing, need for further surgery, loss of limb and life. The consent form was reviewed with him and he freely signed it. The patient's was on board with proceeding with procedure as well. No guarantees were given nor implied. No warranties were given. Operative Procedure: The patient was brought back to the operating room and was kept in his hospital bed in the supine position. A timeout was performed and the patient was properly identified and surgical plan confirmed. The patient is already on IV antibiotic therapy with Infectious Disease following. The patient received MAC anesthesia per the anesthesia team. A well padded pneumatic tourniquet was applied around the patient's left ankle. After the overlying skin was cleansed with 70% Isopropyl alcohol a total of 10mL of 0.5% Bupivacaine plain was given as a local nerve block around the patient's left 5th ray on his left foot. The left foot was scrubbed, prepped, and draped in the usual aseptic fashion. Further attention was directed to the patient's left foot where again it was noted there was an ulceration probing to bone of the base of the left 5th toe, the toe had erythema and edema and there was some drainage from the ulceration consistent with infection. The patient's left foot was elevated for several minutes and the left ankle pneumatic tourniquet was inflated to 250mmHg. An incision was made around the toe at the base of the left 5th toe using a 15 blade. This was made down to bone and in a way a dorsal and plantar flap was made. The toe was amputated at the 5th metatarsal phalangeal joint, although there was no 5th metatarsal head consistent with previous surgery. The bone of the base of the proximal phalanx of the 5th toe was noted to be soft and eroded, a bone culture was obtained of the bone and sent to microbiology. The toe was amputated as noted above and amputated part of the toe was sent to pathology. The surgical site was examined and there was no exposed 5th metatarsal. There was some nonviable subcutaneous tissue and fascia layer which was debrided in excisional fashion using a 15 blade and this debrided tissue was sent with the amputated 5th toe to pathology. The site was flushed out with copious amounts of normal saline solution. The remaining tissues appeared healing and viable. The skin was reapproximated using 3-0 Prolene. A dressing was applied which consisted of Betadine soaked adaptic, 4x4 gauze, kerlix and bernie dressing. The pneumatic tourniquet was deflated and there was immediate return of warmth and perfusion to the foot. Total tourniquet time was 19 minutes. The patient tolerated the above procedure well and anesthesia well with no complications. He was transported from the operating room to the recovery room with vital signs stable and in good condition. Post operative orders were placed. The patient will be followed as an inpatient. Surgical Findings: As noted above Complications Complications: No
--- NOTE | 2025-06-17 14:42 | PCM.POST.ANE ---
Anesthesia: Postop Eval I Current Vital Signs Temperature: 97.5 F Pulse Rate: 62 Blood Pressure: 143/52 Respiratory Rate: 16 Pulse Ox: 98 Oxygen Delivery Method: Room Air Assessment Airway patent: Yes Spontaneous unlabored respirations: Yes Mental status: Awake and Calm nausea: No Vomiting: No Anesthesia Complication: No Fluid Hydration Crystalloid volume administer (ml): 300 Total IV fluid infused: 300 Progress Note Anesthesia document: Postop Eval 1 completed: Yes
--- NOTE | 2025-06-17 15:15 | RAD_ITS ---
PROCEDURE: FOOT MIN 3 VIEWS 06/17/2025 REASON FOR EXAM: POST OP TECHNIQUE: Procedure Code: RADFO Modality: DX Procedure: FOOT MIN 3 VIEWS Laterality: Left COMPARISON: 06/15/2025. FINDINGS: Resection of the 5th ray at the level of the mid metatarsal. Soft tissue irregularity of the amputation site which may represent a wound. Correlate with physical examination. No evidence of acute fracture. Mild degenerative changes throughout the foot. Heavy atherosclerosis. RAD/Foot min 3 Views IMPRESSION: Osseous findings as above. Reading Location: [id number]
--- NOTE | 2025-06-17 16:13 | POSTOPAN2_ITS ---
Anesthesia Postop Eval I Sum Postop Eval Completion status Anesthesia document: Postop Eval 1 completed: Yes Anesthesia Postop Eval I Summary Anesthesia Postop Eval I Summary: Anesthesia Postop Eval I: Assessment Summary Airway patent Yes 06/17/25 14:44 BUILDING SERVICES [email or web address] Spontaneous unlabored Yes 06/17/25 14:44 BUILDING SERVICES [email or web address] respirations Mental status Awake,Calm 06/17/25 14:44 BUILDING SERVICES [email or web address] nausea No 06/17/25 14:44 BUILDING SERVICES [email or web address] Vomiting No 06/17/25 14:44 BUILDING SERVICES [email or web address] Anesthesia Postop Eval I: Fluid Summary Crystalloid volume administer 300 06/17/25 14:44 BUILDING SERVICES [email or web address] (ml) Colloids volume administered ( ml) Blood Product volume administered (ml) Total IV fluid infused 300 06/17/25 14:44 BUILDING SERVICES [email or web address] Anesthesia Postop Eval I: Summary Notes Anesthesia Complication No 06/17/25 14:44 BUILDING SERVICES [email or web address] Anesthesia Complication Comment: Post-operative progress note Anesthesia: Postop Eval II Evaluation Mental status: Awake and Calm Pain Level: 0 nausea: No Vomiting: No Complications Anesthesia Complication: No
--- NOTE | 2025-06-17 16:13 | PCM.POSTANE2 ---
Anesthesia Postop Eval I Sum Postop Eval Completion status Anesthesia document: Postop Eval 1 completed: Yes Anesthesia Postop Eval I Summary Anesthesia Postop Eval I Summary: Anesthesia Postop Eval I: Assessment Summary Airway patent Yes 06/17/25 14:44 [email or web address] Spontaneous unlabored Yes 06/17/25 14:44 [email or web address] respirations Mental status Awake,Calm 06/17/25 14:44 [email or web address] nausea No 06/17/25 14:44 [email or web address] Vomiting No 06/17/25 14:44 [email or web address] Anesthesia Postop Eval I: Fluid Summary Crystalloid volume administer 300 06/17/25 14:44 [email or web address] (ml) Colloids volume administered ( ml) Blood Product volume administered (ml) Total IV fluid infused 300 06/17/25 14:44 [email or web address] Anesthesia Postop Eval I: Summary Notes Anesthesia Complication No 06/17/25 14:44 [email or web address] Anesthesia Complication Comment: Post-operative progress note Anesthesia: Postop Eval II Evaluation Mental status: Awake and Calm Pain Level: 0 nausea: No Vomiting: No Complications Anesthesia Complication: No
[2025-06-17] MEDS: Memantine Hydrochloride 10 MG Tablet PO ×2 (16:16→20:57)
[2025-06-18] MEDS: Vancomycin HCl 1,000 MG in 0.9% Normal Saline (250mL Bag) 250 ML 250 MG IV ×2 (03:45→16:59)
[2025-06-18 03:48] VITALS: BP 138/77; PULSE 61; RESP 14; TEMP 36.7; O2SAT 99
[2025-06-18] MEDS: Piperacil/Tazobactam 3.375 GM in 0.9% Normal Saline (50mL MB+) 50 ML IV ×3 (05:45→22:19)
[2025-06-18 06:47] LABS: Hematocrit 34.0 % (40-54); Hemoglobin 10.7 g/dL (13.0-16.5); Immature Granulocytes Count 0.090 X10^3/uL (0.0-0.0); Mean Corp Hgb Conc 31.5 g/dL (32-36); Mean Corpuscular Volume 83.7 fL (80-94); Mean Platelet Vol. 8.8 fl (6.2-12.0); NRBC Flagged by Analyzer 0 % (0-5); Platelet Count 213 K/mm3 (150-450); RBC Distribution Width CV 13.3 % (11.6-14.6); RBC Distribution Width SD 41.4 fl (35.1-43.9); Red Blood Count 4.06 M/mm3 (4.6-6.2); White Blood Count 9.4 K/mm3 (4.4-11.0)
[2025-06-18 07:06] LABS: Anion Gap 10 (5-15); BUN 23 mg/dL (4-19); BUN/Creat Ratio 19.7 RATIO (10-20); Calcium,Total 9.2 mg/dL (7.6-11.0); Carbon Dioxide 23.8 mmol/L (21.0-32.0); Chloride 109 mmol/L (98-108); Estimated Creatinine Clearance 68.01 ml/min (50-250); Glucose 149 mg/dL (70-99); Potassium 3.5 mmol/L (3.3-5.1)
--- NOTE | 2025-06-18 08:14 | CASEMGMT ---
Discharge Planning Updates sent via [facility] to [facility]. Tamika Encinas DC Planning Asst.
[2025-06-18] MEDS: Insulin Glargine-YFGN 100 UNIT/ML Pen 9 UNIT SC (09:22)
[2025-06-18 09:28] VITALS: BP 136/65; PULSE 60
[2025-06-18] MEDS: Metoprolol(XL)Succ 25 MG Tablet PO (09:28)
[2025-06-18] MEDS: Memantine Hydrochloride 10 MG Tablet PO ×2 (09:28→22:20)
[2025-06-18 10:00] VITALS: BP 136/65; PULSE 60; RESP 14; TEMP 36.8; O2SAT 98
--- NOTE | 2025-06-18 10:56 | PCM.PROGNOTE ---
Subjective Subjective Patient seen and examined. Objective Data Objective Data Vital Signs: Vital Signs Temp Pulse Resp BP Pulse Ox O2 Del Method O2 Flow Rate 98.0 F 60 14 136/65 H 99 Nasal Cannula 2 06/18/25 03:48 06/18/25 09:28 06/18/25 03:48 06/18/25 09:28 06/18/25 03:48 06/18/25 03:48 06/18/25 03:48 Oxygen Flow Rate (L/min) 2 Oxygen Delivery Method Nasal Cannula Weight: 240 lb 4.862 oz Body Mass Index (BMI) 31.8 Intake & Output: Intake and Output for Last 24 Hours 06/16/25 06/17/25 06/18/25 23:59 23:59 23:59 Intake Total 820 / 820 640 / 790 470 / 470 Output Total 1650 / 2050 901 / 1401 1150 / 1150 Balance -830 / -1230 -261 / -611 -680 / -680 Lab / Micro Data 06/18/25 06:34 06/18/25 06:34 Labs: Laboratory Results - last 24 hr 06/17/25 12:26: POC Glucose 159 H 06/17/25 16:11: POC Glucose 140 H 06/17/25 21:01: POC Glucose 169 H 06/18/25 05:50: POC Glucose 141 H 06/18/25 06:34: WBC 9.4, RBC 4.06 L, Hgb 10.7 L, Hct 34.0 L, MCV 83.7, MCH 26.4 L, MCHC 31.5 L, RDW Std Deviation 41.4, RDW Coeff of Nathaniel 13.3, Plt Count 213, MPV 8.8, Immature Gran % (Auto) 1.000 H, Neut % (Auto) 70.6 H, Lymph % (Auto) 15.8 L, [place] % (Auto) 7.2, Eos % (Auto) 5.0, Baso % (Auto) 0.4, Absolute Neuts (auto) 6.6, Absolute Lymphs (auto) 1.48, Nucleated RBC % 0, Sodium 142, Potassium 3.5, Chloride 109 H, Carbon Dioxide 23.8, Anion Gap 10, BUN 23 H, Creatinine 1.16, Estim Creat Clear Calc 68.01, Est GFR (MDRD) Non-Af 65, BUN/Creatinine Ratio 19.7, Glucose 149 H, Calcium 9.2 Micro: Microbiology 06/17/25 02:45 Bone - 5th Toe Gram Stain - Final 06/17/25 02:45 Bone - 5th Toe Wound Culture - Preliminary Gram negative sherman Gram positive organism 06/16/25 07:50 Wound - Axilla, Right Gram Stain - Final 06/16/25 07:50 Wound - Axilla, Right Wound Culture - Preliminary Proteus mirabilis GPC Poss Enterococcus sp 06/15/25 17:25 Wound - Left Foot Gram Stain - Final 06/15/25 17:25 Wound - Left Foot Wound Culture - Final Proteus mirabilis Meth. resistant Staph. aureus Streptococcus group G 06/15/25 17:25 Wound - Left Foot Anaerobic Culture - Preliminary Checking for anaerobes, further studies to follow. 06/15/25 13:58 Blood Culture (Wb) - Left Hand Blood Culture - Preliminary No growth in 48 hours. 06/15/25 13:43 Blood Culture (Wb) - Left Hand Blood Culture - Preliminary No growth in 48 hours. Radiography Diagnostic Testing: Radiology Impression Foot X-Ray 06/17/25 15:15 IMPRESSION: Osseous findings as above. Reading Location: [id number]
--- NOTE | 2025-06-18 11:02 | PN_ITS ---
Subjective Subjective Patient seen and examined. His nurse was by his bedside. Patient was drowsy but was able to wake up and answer questions. He had no active complaints. He is s/p amputation of the left fifth toe. Remains on broad-spectrum antibiotics. Review of systems otherwise negative. Objective Data Objective Data Vital Signs: Vital Signs Temp Pulse Resp BP Pulse Ox O2 Del Method O2 Flow Rate 98.0 F 60 14 136/65 H 99 Nasal Cannula 2 06/18/25 03:48 06/18/25 09:28 06/18/25 03:48 06/18/25 09:28 06/18/25 03:48 06/18/25 03:48 06/18/25 03:48 Oxygen Flow Rate (L/min) 2 Oxygen Delivery Method Nasal Cannula Weight: 240 lb 4.862 oz Body Mass Index (BMI) 31.8 Intake & Output: Intake and Output for Last 24 Hours 06/16/25 06/17/25 06/18/25 23:59 23:59 23:59 Intake Total 820 / 820 640 / 790 470 / 470 Output Total 1650 / 2050 901 / 1401 1150 / 1150 Balance -830 / -1230 -261 / -611 -680 / -680 Lab / Micro Data 06/18/25 06:34 06/18/25 06:34 Labs: Laboratory Results - last 24 hr 06/17/25 12:26: POC Glucose 159 H 06/17/25 16:11: POC Glucose 140 H 06/17/25 21:01: POC Glucose 169 H 06/18/25 05:50: POC Glucose 141 H 06/18/25 06:34: WBC 9.4, RBC 4.06 L, Hgb 10.7 L, Hct 34.0 L, MCV 83.7, MCH 26.4 L, MCHC 31.5 L, RDW Std Deviation 41.4, RDW Coeff of Nathaniel 13.3, Plt Count 213, MPV 8.8, Immature Gran % (Auto) 1.000 H, Neut % (Auto) 70.6 H, Lymph % (Auto) 15.8 L, [place] % (Auto) 7.2, Eos % (Auto) 5.0, Baso % (Auto) 0.4, Absolute Neuts (auto) 6.6, Absolute Lymphs (auto) 1.48, Nucleated RBC % 0, Sodium 142, Potassium 3.5, Chloride 109 H, Carbon Dioxide 23.8, Anion Gap 10, BUN 23 H, Creatinine 1.16, Estim Creat Clear Calc 68.01, Est GFR (MDRD) Non-Af 65, BUN/Creatinine Ratio 19.7, Glucose 149 H, Calcium 9.2 Micro: Microbiology 06/17/25 02:45 Bone - 5th Toe Gram Stain - Final 06/17/25 02:45 Bone - 5th Toe Wound Culture - Preliminary Gram negative sherman Gram positive organism 06/16/25 07:50 Wound - Axilla, Right Gram Stain - Final 06/16/25 07:50 Wound - Axilla, Right Wound Culture - Preliminary Proteus mirabilis GPC Poss Enterococcus sp 06/15/25 17:25 Wound - Left Foot Gram Stain - Final 06/15/25 17:25 Wound - Left Foot Wound Culture - Final Proteus mirabilis Meth. resistant Staph. aureus Streptococcus group G 06/15/25 17:25 Wound - Left Foot Anaerobic Culture - Preliminary Checking for anaerobes, further studies to follow. 06/15/25 13:58 Blood Culture (Wb) - Left Hand Blood Culture - Preliminary No growth in 48 hours. 06/15/25 13:43 Blood Culture (Wb) - Left Hand Blood Culture - Preliminary No growth in 48 hours. Radiography Diagnostic Testing: Radiology Impression Foot X-Ray 06/17/25 15:15 IMPRESSION: Osseous findings as above. Reading Location: [address] Physical Exam Const alert and no apparent distress Constitutional Narrative: Resting comfortably in bed. Nontoxic. General Appearance: cooperative Orientation / Consciousness: lethargic HEENT normocephalic, head/scalp atraumatic and moist oral mucous membranes Eyes EOMs intact bilaterally Neck supple and no JVD Lymph Lymphatic: no lymphedema noted Resp normal respiratory effort and clear to auscultation bilaterally Resp Narrative: Mildly diminished breath sounds bibasilarly. No wheezes or crackles. On room air. Cardio regular rate, regular rhythm, S1 normal heart sound, S2 normal heart sound and no murmurs GI normal to inspection, nondistended, normoactive bowel sounds, soft to palpation, non-tender and non-distended Extremity Extremity Narrative: Left lower extremity wrapped in bandage. Skin Skin Narrative: as under extremity Neuro no focal motor deficits and no sensory deficits noted Neuro Narrative: lethargic Sensorium / Orientation: awake and alert Motor Exam: general weakness Psych Mood & Affect: flat affect Assessment & Plan Assessment/Plan (1) Cellulitis of left toe: (2) Acute osteomyelitis of metatarsal bone of left foot: PLAN: Plan # Acute on chronic osteomyelitis of the left foot * Patient did have surgery January 2025 for wound infection and wound is still not healed. Wound cultures ordered. On IV vancomycin and Zosyn. * Podiatry and ID consulted as well as vascular surgery. * PT OT on board. Fall precautions * Foot x-ray on admission showed evidence of osteomyelitis involving the distal portion of the proximal phalanx of the fifth toe with evidence of soft tissue ulceration and swelling and degenerative changes of the tarsal bone suggestive of possible Charcot deformity. * Had left fifth toe amputation done on 06/17/2025. Today is postop day 1. * had vascular study of LLE which showed patient LLE arteries patent with normal velocities and waveforms throughout, with no evidence of stenosis. * Wound cultures growing gram-negative rods growing gram-positive organisms with speciation pending. This is from surgery. Earlier wound cultures grew Proteus mirabilis and Enterococcus as well as MRSA and strep group G. * ID on board. continue IV vancomycin and zosyn. #Type 2 diabetes mellitus: * On Lantus. Insulin sliding scale. Accu-Cheks ACHS. * #Hyperlipidemia: On statin #History of peripheral artery disease: Vascular surgery on board. 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 On metoprolol BPH: On Flomax DVT prophylax: SCDs for now until Eliquis can be resumed. Charges/Coding Visit Charges Inpatient E&M: 39722 Subs Hosp L2
--- NOTE | 2025-06-18 11:02 | CASEMGMT ---
Per [place] estate planning director, Pt unable to return to [facility] over the weekend, will need to be here until Saturday. JACEY CM notified hospitalist.
--- NOTE | 2025-06-18 12:16 | PCM.PN.SRG ---
Subjective Subjective Patient had L 5th toe amputation yesterday; discussed with Dr. Mejia and he noted good bleeding at the time of surgery. Objective Data Objective Data Vital Signs: Vital Signs Temp Pulse Resp BP Pulse Ox O2 Del Method O2 Flow Rate 98.0 F 60 14 136/65 H 99 Nasal Cannula 2 06/18/25 03:48 06/18/25 09:28 06/18/25 03:48 06/18/25 09:28 06/18/25 03:48 06/18/25 03:48 06/18/25 03:48 Oxygen Flow Rate (L/min) 2 Oxygen Delivery Method Nasal Cannula Weight: 240 lb 4.862 oz Body Mass Index (BMI) 31.8 Intake & Output: Intake and Output for Last 24 Hours 06/16/25 06/17/25 06/18/25 23:59 23:59 23:59 Intake Total 820 / 820 640 / 790 470 / 470 Output Total 1650 / 2050 901 / 1401 1150 / 1150 Balance -830 / -1230 -261 / -611 -680 / -680 Lab / Micro Data 06/18/25 06:34 06/18/25 06:34 Labs: Laboratory Results - last 24 hr 06/17/25 12:26: POC Glucose 159 H 06/17/25 16:11: POC Glucose 140 H 06/17/25 21:01: POC Glucose 169 H 06/18/25 05:50: POC Glucose 141 H 06/18/25 06:34: WBC 9.4, RBC 4.06 L, Hgb 10.7 L, Hct 34.0 L, MCV 83.7, MCH 26.4 L, MCHC 31.5 L, RDW Std Deviation 41.4, RDW Coeff of Nathaniel 13.3, Plt Count 213, MPV 8.8, Immature Gran % (Auto) 1.000 H, Neut % (Auto) 70.6 H, Lymph % (Auto) 15.8 L, [place] % (Auto) 7.2, Eos % (Auto) 5.0, Baso % (Auto) 0.4, Absolute Neuts (auto) 6.6, Absolute Lymphs (auto) 1.48, Nucleated RBC % 0, Sodium 142, Potassium 3.5, Chloride 109 H, Carbon Dioxide 23.8, Anion Gap 10, BUN 23 H, Creatinine 1.16, Estim Creat Clear Calc 68.01, Est GFR (MDRD) Non-Af 65, BUN/Creatinine Ratio 19.7, Glucose 149 H, Calcium 9.2 06/18/25 11:30: POC Glucose 170 H Micro: Microbiology 06/17/25 02:45 Bone - 5th Toe Gram Stain - Final 06/17/25 02:45 Bone - 5th Toe Wound Culture - Preliminary Gram negative sherman Gram positive organism 06/16/25 07:50 Wound - Axilla, Right Gram Stain - Final 06/16/25 07:50 Wound - Axilla, Right Wound Culture - Preliminary Proteus mirabilis GPC Poss Enterococcus sp 06/15/25 17:25 Wound - Left Foot Gram Stain - Final 06/15/25 17:25 Wound - Left Foot Wound Culture - Final Proteus mirabilis Meth. resistant Staph. aureus Streptococcus group G 06/15/25 17:25 Wound - Left Foot Anaerobic Culture - Preliminary Checking for anaerobes, further studies to follow. 06/15/25 13:58 Blood Culture (Wb) - Left Hand Blood Culture - Preliminary No growth in 48 hours. 06/15/25 13:43 Blood Culture (Wb) - Left Hand Blood Culture - Preliminary No growth in 48 hours. Radiography Diagnostic Testing: Radiology Impression Foot X-Ray 06/17/25 15:15 IMPRESSION: Osseous findings as above. Reading Location: [address] Physical Exam Const alert and no apparent distress General Appearance: cooperative and comfortable HEENT normocephalic, head/scalp atraumatic, hearing grossly normal bilaterally and external ears normal Eyes General Eye: normal appearance of both eyes Neck General: normal visual inspection Resp normal respiratory effort Effort and Inspection: able to speak in complete sentences; Negative for labored, grunting or stridor Cardio regular rate Extremity Extremity Narrative: LLE with wound dressings in place, not disturbed for exam Skin Wounds: wounds noted Wound Narrative: s/p L 5th digit amputation Psych Appearance: grossly normal Attitude: calm Speech: normal speech Assessment & Plan Assessment/Plan (1) PAD (peripheral artery disease): (2) Diabetic ulcer of left fifth toe: PLAN: Plan Satisfactory bleeding was noted at the time of 5th toe amputation and arterial studies suggested patent prior interventions and good/stable inflow to the L foot. No plans for any further vascular intervention at this time. Will plan for patient to follow-up as an outpatient in our office in 1-2 weeks to reassess. Charges/Coding Visit Charges Inpatient E&M: 85318 Subs Hosp L1
--- NOTE | 2025-06-18 13:35 | PN_ITS ---
Subjective Subjective Patient was seen today for follow up on left foot s/p 5th toe amputation. He is resting comfortably in bed, no new complaints. He relates he is doing good today. WBC normal. No f/c/n/v. Objective Data Objective Data Vital Signs: Vital Signs Temp Pulse Resp BP Pulse Ox O2 Del Method O2 Flow Rate 98.3 F 60 14 136/65 H 98 Nasal Cannula 2 06/18/25 10:00 06/18/25 10:00 06/18/25 10:00 06/18/25 10:00 06/18/25 10:00 06/18/25 10:00 06/18/25 10:00 Oxygen Flow Rate (L/min) 2 Oxygen Delivery Method Nasal Cannula Weight: 109 kg Body Mass Index (BMI) 31.8 Intake & Output: Intake and Output for Last 24 Hours 06/16/25 06/17/25 06/18/25 23:59 23:59 23:59 Intake Total 820 / 820 640 / 790 470 / 470 Output Total 1650 / 2050 901 / 1401 1150 / 1150 Balance -830 / -1230 -261 / -611 -680 / -680 Lab / Micro Data 06/18/25 06:34 06/18/25 06:34 Labs: Laboratory Results - last 24 hr 06/17/25 16:11: POC Glucose 140 H 06/17/25 21:01: POC Glucose 169 H 06/18/25 05:50: POC Glucose 141 H 06/18/25 06:34: WBC 9.4, RBC 4.06 L, Hgb 10.7 L, Hct 34.0 L, MCV 83.7, MCH 26.4 L, MCHC 31.5 L, RDW Std Deviation 41.4, RDW Coeff of Nathaniel 13.3, Plt Count 213, MPV 8.8, Immature Gran % (Auto) 1.000 H, Neut % (Auto) 70.6 H, Lymph % (Auto) 15.8 L, [place] % (Auto) 7.2, Eos % (Auto) 5.0, Baso % (Auto) 0.4, Absolute Neuts (auto) 6.6, Absolute Lymphs (auto) 1.48, Nucleated RBC % 0, Sodium 142, Potassium 3.5, Chloride 109 H, Carbon Dioxide 23.8, Anion Gap 10, BUN 23 H, Creatinine 1.16, Estim Creat Clear Calc 68.01, Est GFR (MDRD) Non-Af 65, BUN/Creatinine Ratio 19.7, Glucose 149 H, Calcium 9.2 06/18/25 11:30: POC Glucose 170 H Micro: Microbiology 06/17/25 02:45 Bone - 5th Toe Gram Stain - Final 06/17/25 02:45 Bone - 5th Toe Wound Culture - Preliminary Gram negative sherman Gram positive organism 06/16/25 07:50 Wound - Axilla, Right Gram Stain - Final 06/16/25 07:50 Wound - Axilla, Right Wound Culture - Preliminary Proteus mirabilis GPC Poss Enterococcus sp 06/15/25 17:25 Wound - Left Foot Gram Stain - Final 06/15/25 17:25 Wound - Left Foot Wound Culture - Final Proteus mirabilis Meth. resistant Staph. aureus Streptococcus group G 06/15/25 17:25 Wound - Left Foot Anaerobic Culture - Preliminary Checking for anaerobes, further studies to follow. 06/15/25 13:58 Blood Culture (Wb) - Left Hand Blood Culture - Preliminary No growth in 48 hours. 06/15/25 13:43 Blood Culture (Wb) - Left Hand Blood Culture - Preliminary No growth in 48 hours. Radiography Diagnostic Testing: Radiology Impression Foot X-Ray 06/17/25 15:15 IMPRESSION: Osseous findings as above. Reading Location: [address] Physical Exam Const no apparent distress Constitutional Narrative: s/p left 5th toe amputation - site healing well, sutures intact, tissues viable, no necrosis, no visible abscess, no streaking, no maloder, no drainage, there is no significant cellulitis, no evidence of acute ischemia to left foot, no new areas of break down left or right foot. Assessment & Plan Assessment/Plan (1) Chronic multifocal osteomyelitis of left foot: (2) Cellulitis of left toe: (3) Type 2 diabetes mellitus with foot ulcer: QUALIFIERS: Diabetic foot ulcer location: toe Laterality: left N on-pressure ulcer stage: with necrosis of bone Qualified Code(s): E11.621 - Type 2 diabetes mellitus with foot ulcer; L97.524 - Non-pressure chronic ulcer of other part of left foot with necrosis of bone PLAN: Plan Evaluation performed. s/p left 5th toe amputation - doing well - healing appropriately at this time - will continue to follow. Culture have been obtained and reviewed. Patient on IV antibiotics vanc/zosyn with Infectious Disease on consult. Peripheral arterial disease: Chronic - no evidence of acute ischemia - vascular surgery following. Surgical site wound care: Betadine soln and gauze dressing - change daily. Keep bilateral heels offloaded to help prevent break down while in bed. Ok for partial weightbearing left foot for transfers with surgical shoe. Podiatry will continue to follow.
[2025-06-18] MEDS: 0.9% Normal Saline (250mL Bag) 250 ML 15 ML IV ×2 (14:10→16:59)
--- NOTE | 2025-06-18 14:39 | PCM.PN.ID ---
Physical Exam Narrative Feeling ok, pain controlled, no fever, no n/v/d Const alert and no apparent distress General Appearance: cooperative Resp normal air movement and clear to auscultation bilaterally Cardio regular rate and regular rhythm GI soft to palpation, non-tender and non-distended Skin no rashes or lesions noted Skin Narrative: foot wrapped ID ID: Route of nutrition/ use of supplements: [] Nutritional Intake: [] IV Site: [] Rodrigues Catheter: [] Assessment & Plan Assessment/Plan (1) Chronic multifocal osteomyelitis of left foot: PLAN: Wound cx with proteus, strep, and MRSA. Axillary swab with proteus and enterococcus-like. Seen by podiatry and vascular. On empiric vanc/zosyn. Taken to OR 06/17/[address] Mejia for L 5th toe amputation. Bone cx with GNR and gram pos. Plan for discharge will be one week po doxy 100mg bid, cefdinir 300mg bid, and flagyl 500mg bid, assuming margins are clear. Will follow (2) PAD (peripheral artery disease): (3) Diabetes mellitus with diabetic polyneuropathy:
[2025-06-18 15:16] VITALS: BP 123/57; PULSE 60; RESP 16; TEMP 36.9; O2SAT 95
[2025-06-18] MEDS: 0.9% Saline Lock 10 ML Syringe IV ×2 (15:23→16:59)
[2025-06-18 16:11] LABS: Vancomycin, Trough Level 18.2 ug/mL (5.0-15.0)
--- NOTE | 2025-06-18 16:17 | PCM.RX.CS ---
Consult Antibiotic Management Pharmacy has been consulted to manage selected antibiotic: Vancomycin Type of Intervention Type of Consult: Follow-up Suspected Infection Suspected Infection: Osteomyelitis Prior Doses of Antibiotics Prior Doses of Antibiotics Received/Current Regimen: current dose is vanc 1000mg IV q12h Labs Labs: Sodium 142 mmol/L (133-145) 06/18/25 06:34 Potassium 3.5 mmol/L (3.3-5.1) 06/18/25 06:34 Chloride 109 mmol/L (98-108) H 06/18/25 06:34 Carbon Dioxide 23.8 mmol/L (21.0-32.0) 06/18/25 06:34 Anion Gap 10 (5-15) 06/18/25 06:34 BUN 23 mg/dL (4-19) H 06/18/25 06:34 Creatinine 1.16 mg/dL (0.70-1.20) 06/18/25 06:34 Est GFR (MDRD) Non-Af 65 (>60) 06/18/25 06:34 BUN/Creatinine Ratio 19.7 RATIO (10-20) 06/18/25 06:34 Glucose 149 mg/dL (70-99) H 06/18/25 06:34 Vancomycin Trough 18.2 ug/mL (5.0-15.0) H 06/18/25 15:38 Microbiology Microbiology: Microbiology 06/17/25 02:45 Bone - 5th Toe Gram Stain - Final 06/17/25 02:45 Bone - 5th Toe Wound Culture - Preliminary Gram negative sherman Gram positive organism 06/16/25 07:50 Wound - Axilla, Right Gram Stain - Final 06/16/25 07:50 Wound - Axilla, Right Wound Culture - Preliminary Proteus mirabilis GPC Poss Enterococcus sp 06/15/25 17:25 Wound - Left Foot Gram Stain - Final 06/15/25 17:25 Wound - Left Foot Wound Culture - Final Proteus mirabilis Meth. resistant Staph. aureus Streptococcus group G 06/15/25 17:25 Wound - Left Foot Anaerobic Culture - Preliminary Checking for anaerobes, further studies to follow. 06/15/25 13:58 Blood Culture (Wb) - Left Hand Blood Culture - Preliminary No growth in 48 hours. 06/15/25 13:43 Blood Culture (Wb) - Left Hand Blood Culture - Preliminary No growth in 48 hours. Dosing Weight Weight used for dosin kg Estimated Creatinine Clearance Estimated Creatinine Clearance: 68 ml/min Goal Trough Goal Trough: 15-20 mcg/mL Pharmacy Plan for Drug Dosing Pharmacy Plan for Drug Dosing: The vanc trough drawn at 15:38 today (approximately 12 hours after the previous dose) was 18.2 mcg/ml. This is in goal range so will keep same dose. Repeat a trough in 2 days per protocol. Pharmacy Service will continue to monitor and adjust dosing as required. Follow-Up Labs Follow-Up Labs: Trough: Vancomycin Date/Time Labs Ordered Labs to be done on [date and time ordered]: 06/20/25 16:00
[2025-06-18] MEDS: Vancomycin Trough/Random Due 1 LAB MC (16:49)
[2025-06-18 20:10] VITALS: BP 130/64; PULSE 59; RESP 16; TEMP 36.9; O2SAT 94; O2SAT 95
[2025-06-19 02:10] VITALS: BP 140/63; PULSE 60; RESP 16; TEMP 36.8; O2SAT 96
[2025-06-19] MEDS: Vancomycin HCl 1,000 MG in 0.9% Normal Saline (250mL Bag) 250 ML 250 MG IV ×2 (03:33→16:27)
[2025-06-19 04:55] LABS: Hematocrit 32.3 % (40-54); Hemoglobin 10.1 g/dL (13.0-16.5); Immature Granulocytes Count 0.090 X10^3/uL (0.0-0.0); Mean Corp Hgb Conc 31.3 g/dL (32-36); Mean Corpuscular Volume 83.9 fL (80-94); Mean Platelet Vol. 9.2 fl (6.2-12.0); NRBC Flagged by Analyzer 0 % (0-5); Platelet Count 217 K/mm3 (150-450); RBC Distribution Width CV 13.3 % (11.6-14.6); RBC Distribution Width SD 40.5 fl (35.1-43.9); Red Blood Count 3.85 M/mm3 (4.6-6.2); White Blood Count 8.6 K/mm3 (4.4-11.0)
[2025-06-19 05:28] LABS: Anion Gap 11 (5-15); BUN 24 mg/dL (4-19); BUN/Creat Ratio 19.8 RATIO (10-20); Calcium,Total 9.1 mg/dL (7.6-11.0); Carbon Dioxide 20.9 mmol/L (21.0-32.0); Chloride 110 mmol/L (98-108); Estimated Creatinine Clearance 64.14 ml/min (50-250); Glucose 149 mg/dL (70-99); Potassium 3.1 mmol/L (3.3-5.1)
[2025-06-19] MEDS: Piperacil/Tazobactam 3.375 GM in 0.9% Normal Saline (50mL MB+) 50 ML IV ×3 (06:17→21:32)
[2025-06-19 08:20] VITALS: BP 149/70; PULSE 62; RESP 18; TEMP 36.7; O2SAT 98
--- NOTE | 2025-06-19 10:28 | PN_ITS ---
Subjective Subjective Patient seen and examined with his nurse by his bedside. He has no active complaints. Review of systems otherwise negative. He has remained hemodynamically stable. Objective Data Objective Data Vital Signs: Vital Signs Temp Pulse Resp BP Pulse Ox O2 Del Method O2 Flow Rate 98.1 F 62 18 149/70 H 98 Nasal Cannula 2 06/19/25 08:20 06/19/25 08:20 06/19/25 08:20 06/19/25 08:20 06/19/25 08:20 06/19/25 08:25 06/19/25 08:25 Oxygen Flow Rate (L/min) 2 Oxygen Delivery Method Nasal Cannula Weight: 240 lb 4.862 oz Body Mass Index (BMI) 31.8 Intake & Output: Intake and Output for Last 24 Hours 06/17/25 06/18/25 06/19/25 23:59 23:59 23:59 Intake Total 640 / 790 882.25 / 882.25 1297 / 1297 Output Total 901 / 1401 1150 / 1650 800 / 800 Balance -261 / -611 -267.75 / -767.75 497 / 497 Lab / Micro Data 06/19/25 04:25 06/19/25 04:25 Labs: Laboratory Results - last 24 hr 06/18/25 11:30: POC Glucose 170 H 06/18/25 15:38: Vancomycin Trough 18.2 H 06/18/25 16:45: POC Glucose 186 H 06/18/25 22:18: POC Glucose 182 H 06/19/25 04:25: WBC 8.6, RBC 3.85 L, Hgb 10.1 L, Hct 32.3 L, MCV 83.9, MCH 26.2 L, MCHC 31.3 L, RDW Std Deviation 40.5, RDW Coeff of Nathaniel 13.3, Plt Count 217, MPV 9.2, Immature Gran % (Auto) 1.000 H, Neut % (Auto) 64.1, Lymph % (Auto) 20.8, [place] % (Auto) 8.6, Eos % (Auto) 4.9, Baso % (Auto) 0.6, Absolute Neuts (auto) 5.5, Absolute Lymphs (auto) 1.79, Nucleated RBC % 0, Sodium 142, P otassium 3.1 L, Chloride 110 H, Carbon Dioxide 20.9 L, Anion Gap 11, BUN 24 H, C reatinine 1.23 H, Estim Creat Clear Calc 64.14, Est GFR (MDRD) Non-Af 60, BUN/Creatinine Ratio 19.8, Glucose 149 H, Calcium 9.1 06/19/25 06:16: POC Glucose 144 H Micro: Microbiology 06/16/25 07:50 Wound - Axilla, Right Gram Stain - Final 06/16/25 07:50 Wound - Axilla, Right Wound Culture - Final Proteus mirabilis Enterococcus faecalis Coag Negative Staph 06/17/25 02:45 Bone - 5th Toe Gram Stain - Final 06/17/25 02:45 Bone - 5th Toe Wound Culture - Preliminary Proteus mirabilis Staphylococcus species 06/15/25 17:25 Wound - Left Foot Gram Stain - Final 06/15/25 17:25 Wound - Left Foot Wound Culture - Final Proteus mirabilis Meth. resistant Staph. aureus Streptococcus group G 06/15/25 17:25 Wound - Left Foot Anaerobic Culture - Preliminary Checking for anaerobes, further studies to follow. 06/15/25 13:58 Blood Culture (Wb) - Left Hand Blood Culture - Preliminary No growth in 48 hours. 06/15/25 13:43 Blood Culture (Wb) - Left Hand Blood Culture - Preliminary No growth in 48 hours. Physical Exam Const alert and no apparent distress General Appearance: cooperative Orientation / Consciousness: lethargic HEENT normocephalic, head/scalp atraumatic and moist oral mucous membranes Eyes EOMs intact bilaterally Neck supple and no JVD Lymph Lymphatic: no lymphedema noted Resp Resp Narrative: Mildly diminished breath sounds bibasilarly. No wheezes or crackles. On room air. Cardio regular rate, regular rhythm, S1 normal heart sound, S2 normal heart sound and no murmurs GI normal to inspection, nondistended, normoactive bowel sounds, soft to palpation, non-tender and non-distended Extremity Extremity Narrative: Left lower extremity wrapped in bandage. Skin Skin Narrative: as under extremity Neuro no focal motor deficits and no sensory deficits noted Neuro Narrative: lethargic Motor Exam: general weakness Psych Mood & Affect: flat affect Assessment & Plan Assessment/Plan (1) Cellulitis of left toe: (2) Acute osteomyelitis of metatarsal bone of left foot: PLAN: Plan # Acute on chronic osteomyelitis of the left foot * Patient did have surgery January 2025 for wound infection and wound is still not healed. Wound cultures ordered. On IV vancomycin and Zosyn. * Podiatry and ID consulted as well as vascular surgery. * PT OT on board. Fall precautions * Foot x-ray on admission showed evidence of osteomyelitis involving the distal portion of the proximal phalanx of the fifth toe with evidence of soft tissue ulceration and swelling and degenerative changes of the tarsal bone suggestive of possible Charcot deformity. * Had left fifth toe amputation done on 06/17/2025. Today is postop day 2. * had vascular study of LLE which showed patient LLE arteries patent with normal velocities and waveforms throughout, with no evidence of stenosis. * Wound cultures growing PRoteus mirabilis and Staph species. This is from surgery. Earlier wound cultures grew Proteus mirabilis and Enterococcus as well as MRSA and strep group G. * ID on board. * continue IV vancomycin and zosyn. #Type 2 diabetes mellitus: * On Lantus. Insulin sliding scale. Accu-Cheks ACHS. * #Hyperlipidemia: On statin #History of peripheral artery disease: Vascular surgery on board. Plavix and Eliquis on hold. 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 On metoprolol BPH: On Flomax DVT prophylax: eliquis resumed Charges/Coding Visit Charges Inpatient E&M: 73068 Subs Hosp L2
[2025-06-19] MEDS: Potassium Chloride Oral Tablet 20 MEQ 40 MEQ PO (10:48)
[2025-06-19 10:49] VITALS: PULSE 62
[2025-06-19] MEDS: APIXABAN 5 MG TABLET PO ×2 (10:49→21:35)
[2025-06-19] MEDS: Metoprolol(XL)Succ 25 MG Tablet PO (10:49)
[2025-06-19] MEDS: Insulin Glargine-YFGN 100 UNIT/ML Pen 9 UNIT SC (10:49)
[2025-06-19] MEDS: Memantine Hydrochloride 10 MG Tablet PO ×2 (10:49→21:33)
--- NOTE | 2025-06-19 14:06 | PN_ITS ---
Subjective Subjective Patient was seen today for follow up on his left foot. He is resting sleeping comfortably in bed. No complaints at this time. Objective Data Objective Data Vital Signs: Vital Signs Temp Pulse Resp BP Pulse Ox O2 Del Method O2 Flow Rate 98.1 F 62 18 149/70 H 98 Nasal Cannula 2 06/19/25 08:20 06/19/25 10:49 06/19/25 08:20 06/19/25 08:20 06/19/25 08:20 06/19/25 08:25 06/19/25 08:25 Oxygen Flow Rate (L/min) 2 Oxygen Delivery Method Nasal Cannula Weight: 109 kg Body Mass Index (BMI) 31.8 Intake & Output: Intake and Output for Last 24 Hours 06/17/25 06/18/25 06/19/25 23:59 23:59 23:59 Intake Total 640 / 790 882.25 / 882.25 1297 / 1297 Output Total 901 / 1401 1150 / 1650 800 / 800 Balance -261 / -611 -267.75 / -767.75 497 / 497 Lab / Micro Data 06/19/25 04:25 06/19/25 04:25 Labs: Laboratory Results - last 24 hr 06/18/25 15:38: Vancomycin Trough 18.2 H 06/18/25 16:45: POC Glucose 186 H 06/18/25 22:18: POC Glucose 182 H 06/19/25 04:25: WBC 8.6, RBC 3.85 L, Hgb 10.1 L, Hct 32.3 L, MCV 83.9, MCH 26.2 L, MCHC 31.3 L, RDW Std Deviation 40.5, RDW Coeff of Nathaniel 13.3, Plt Count 217, MPV 9.2, Immature Gran % (Auto) 1.000 H, Neut % (Auto) 64.1, Lymph % (Auto) 20.8, [place] % (Auto) 8.6, Eos % (Auto) 4.9, Baso % (Auto) 0.6, Absolute Neuts (auto) 5.5, Absolute Lymphs (auto) 1.79, Nucleated RBC % 0, Sodium 142, P otassium 3.1 L, Chloride 110 H, Carbon Dioxide 20.9 L, Anion Gap 11, BUN 24 H, C reatinine 1.23 H, Estim Creat Clear Calc 64.14, Est GFR (MDRD) Non-Af 60, BUN/Creatinine Ratio 19.8, Glucose 149 H, Calcium 9.1 06/19/25 06:16: POC Glucose 144 H 06/19/25 11:24: POC Glucose 159 H Micro: Microbiology 06/16/25 07:50 Wound - Axilla, Right Gram Stain - Final 06/16/25 07:50 Wound - Axilla, Right Wound Culture - Final Proteus mirabilis Enterococcus faecalis Coag Negative Staph 06/17/25 02:45 Bone - 5th Toe Gram Stain - Final 06/17/25 02:45 Bone - 5th Toe Wound Culture - Preliminary Proteus mirabilis Staphylococcus species 06/15/25 17:25 Wound - Left Foot Gram Stain - Final 06/15/25 17:25 Wound - Left Foot Wound Culture - Final Proteus mirabilis Meth. resistant Staph. aureus Streptococcus group G 06/15/25 17:25 Wound - Left Foot Anaerobic Culture - Preliminary Checking for anaerobes, further studies to follow. 06/15/25 13:58 Blood Culture (Wb) - Left Hand Blood Culture - Preliminary No growth in 48 hours. 06/15/25 13:43 Blood Culture (Wb) - Left Hand Blood Culture - Preliminary No growth in 48 hours. Physical Exam Const alert and no apparent distress Constitutional Narrative: s/p left 5th toe amputation - site healing well, sutures intact, tissues viable, no necrosis, no visible abscess, no streaking, no maloder, no drainage, there is no significant cellulitis, no evidence of acute ischemia to left foot, no new areas of break down left or right foot. Assessment & Plan Assessment/Plan (1) Chronic multifocal osteomyelitis of left foot: (2) Cellulitis of left toe: (3) Type 2 diabetes mellitus with foot ulcer: QUALIFIERS: Diabetic foot ulcer location: toe Laterality: left N on-pressure ulcer stage: with necrosis of bone Qualified Code(s): E11.621 - Type 2 diabetes mellitus with foot ulcer; L97.524 - Non-pressure chronic ulcer of other part of left foot with necrosis of bone PLAN: Plan Evaluation performed. s/p left 5th toe amputation - continues to do well - healing appropriately at this time - will continue to follow. Culture have been obtained and reviewed. Patient on IV antibiotics vanc/zosyn with Infectious Disease on consult. Peripheral arterial disease: Chronic - no evidence of acute ischemia - vascular surgery following. Surgical site wound care: continue with gauze, kerlix and bernie dressing changes daily, with no compression. Keep bilateral heels offloaded to help prevent break down while in bed. Ok for partial weightbearing left foot for transfers with surgical shoe. Podiatry will continue to follow.
[2025-06-19 14:20] VITALS: BP 145/76; PULSE 60; RESP 18; TEMP 36.8; O2SAT 98
[2025-06-19 20:28] VITALS: BP 153/71; PULSE 58; RESP 18; TEMP 36.7; O2SAT 97
[2025-06-20 02:15] VITALS: BP 149/65; PULSE 59; RESP 16; TEMP 36.6; O2SAT 95
[2025-06-20] MEDS: Piperacil/Tazobactam 3.375 GM in 0.9% Normal Saline (50mL MB+) 50 ML IV ×3 (05:11→21:33)
[2025-06-20] MEDS: Vancomycin HCl 1,000 MG in 0.9% Normal Saline (250mL Bag) 250 ML 250 MG IV (05:12)
[2025-06-20] MEDS: 0.9% Normal Saline (250mL Bag) 250 ML 15 ML IV (05:21)
[2025-06-20 06:39] LABS: Hematocrit 32.3 % (40-54); Hemoglobin 10.5 g/dL (13.0-16.5); Immature Granulocytes Count 0.090 X10^3/uL (0.0-0.0); Mean Corp Hgb Conc 32.5 g/dL (32-36); Mean Corpuscular Volume 83.7 fL (80-94); Mean Platelet Vol. 9.0 fl (6.2-12.0); NRBC Flagged by Analyzer 0 % (0-5); Platelet Count 213 K/mm3 (150-450); RBC Distribution Width CV 13.3 % (11.6-14.6); RBC Distribution Width SD 40.4 fl (35.1-43.9); Red Blood Count 3.86 M/mm3 (4.6-6.2); White Blood Count 9.3 K/mm3 (4.4-11.0)
[2025-06-20 07:10] LABS: Anion Gap 10 (5-15); BUN 19 mg/dL (4-19); BUN/Creat Ratio 17.7 RATIO (10-20); Calcium,Total 9.1 mg/dL (7.6-11.0); Carbon Dioxide 22.2 mmol/L (21.0-32.0); Chloride 111 mmol/L (98-108); Estimated Creatinine Clearance 72.38 ml/min (50-250); Glucose 154 mg/dL (70-99); Potassium 3.3 mmol/L (3.3-5.1)
[2025-06-20 08:20] VITALS: BP 146/76; PULSE 61; RESP 17; TEMP 36.6; O2SAT 98
[2025-06-20 09:45] VITALS: PULSE 61
[2025-06-20] MEDS: Metoprolol(XL)Succ 25 MG Tablet PO (09:45)
[2025-06-20] MEDS: Memantine Hydrochloride 10 MG Tablet PO ×2 (09:45→21:33)
[2025-06-20] MEDS: Insulin Glargine-YFGN 100 UNIT/ML Pen 9 UNIT SC (09:45)
[2025-06-20] MEDS: APIXABAN 5 MG TABLET PO ×2 (09:45→21:35)
--- NOTE | 2025-06-20 10:25 | PN_ITS ---
Subjective Subjective Patient was seen today for follow up on left 5th toe amputation. He is resting comfortably in bed, no complaints. No f/c/n/v. Objective Data Objective Data Vital Signs: Vital Signs Temp Pulse Resp BP Pulse Ox O2 Del Method O2 Flow Rate 97.9 F 61 17 146/76 H 98 Nasal Cannula 2 06/20/25 08:20 06/20/25 09:45 06/20/25 08:20 06/20/25 08:20 06/20/25 08:20 06/20/25 08:20 06/20/25 08:20 Oxygen Flow Rate (L/min) 2 Oxygen Delivery Method Nasal Cannula Weight: 109 kg Body Mass Index (BMI) 31.8 Intake & Output: Intake and Output for Last 24 Hours 06/18/25 06/19/25 06/20/25 23:59 23:59 23:59 Intake Total 882.25 / 882.25 1617 / 1617 370.25 / 370.25 Output Total 1150 / 1650 800 / 800 250 / 250 Balance -267.75 / -767.75 817 / 817 120.25 / 120.25 Lab / Micro Data 06/20/25 06:10 06/20/25 06:10 Labs: Laboratory Results - last 24 hr 06/19/25 11:24: POC Glucose 159 H 06/19/25 16:29: POC Glucose 164 H 06/19/25 21:30: POC Glucose 158 H 06/20/25 06:10: WBC 9.3, RBC 3.86 L, Hgb 10.5 L, Hct 32.3 L, MCV 83.7, MCH 27.2, MCHC 32.5, RDW Std Deviation 40.4, RDW Coeff of Nathaniel 13.3, Plt Count 213, MPV 9.0, Immature Gran % (Auto) 1.000 H, Neut % (Auto) 64.5, Lymph % (Auto) 22.2, [place] % (Auto) 7.5, Eos % (Auto) 4.5, Baso % (Auto) 0.3, Absolute Neuts (auto) 6.0, Absolute Lymphs (auto) 2.06, Nucleated RBC % 0, Sodium 143, Potassium 3.3, Chloride 111 H, Carbon Dioxide 22.2, Anion Gap 10, BUN 19, Creatinine 1.09, Estim Creat Clear Calc 72.38, Est GFR (MDRD) Non-Af 70, BUN/Creatinine Ratio 17.7, Glucose 154 H, Calcium 9.1 06/20/25 06:54: POC Glucose 149 H Micro: Microbiology 06/15/25 17:25 Wound - Left Foot Gram Stain - Final 06/15/25 17:25 Wound - Left Foot Wound Culture - Final Proteus mirabilis Meth. resistant Staph. aureus Streptococcus group G 06/15/25 17:25 Wound - Left Foot Anaerobic Culture - Final Bacteroides fragilis Anaerobic cocci 06/17/25 02:45 Bone - 5th Toe Gram Stain - Final 06/17/25 02:45 Bone - 5th Toe Wound Culture - Final Proteus mirabilis Meth. resistant Staph. aureus 06/16/25 07:50 Wound - Axilla, Right Gram Stain - Final 06/16/25 07:50 Wound - Axilla, Right Wound Culture - Final Proteus mirabilis Enterococcus faecalis Coag Negative Staph 06/15/25 13:58 Blood Culture (Wb) - Left Hand Blood Culture - Preliminary No growth in 48 hours. 06/15/25 13:43 Blood Culture (Wb) - Left Hand Blood Culture - Preliminary No growth in 48 hours. Physical Exam Const alert and no apparent distress Constitutional Narrative: s/p left 5th toe amputation - site continues to do well, sutures intact, tissues viable, no necrosis, no visible abscess, no streaking, no maloder, no drainage, resolved cellulitis, no evidence of acute ischemia to left foot, no new areas of break down left or right foot. Assessment & Plan Assessment/Plan (1) Chronic multifocal osteomyelitis of left foot: (2) Cellulitis of left toe: (3) Type 2 diabetes mellitus with foot ulcer: QUALIFIERS: Diabetic foot ulcer location: toe Laterality: left N on-pressure ulcer stage: with necrosis of bone Qualified Code(s): E11.621 - Type 2 diabetes mellitus with foot ulcer; L97.524 - Non-pressure chronic ulcer of other part of left foot with necrosis of bone PLAN: Plan Evaluation performed. s/p left 5th toe amputation - continues to do well and healing appropriately at this time - will continue to follow. Cultures have been obtained and reviewed. Patient on IV antibiotics vanc/zosyn with Infectious Disease on consult. Peripheral arterial disease: Chronic - no evidence of acute ischemia - vascular surgery following. Surgical site wound care: continue with gauze, kerlix and bernie dressing changes daily, with no compression. Keep bilateral heels offloaded to help prevent break down while in bed. Ok for partial weightbearing left foot for transfers with surgical shoe. Podiatry will continue to follow.
--- NOTE | 2025-06-20 10:59 | PCM.PROGNOTE ---
Subjective Subjective Patient seen and examined. He had no active complaints and had an uneventful night Objective Data Objective Data Vital Signs: Vital Signs Temp Pulse Resp BP Pulse Ox O2 Del Method O2 Flow Rate 97.9 F 61 17 146/76 H 98 Nasal Cannula 2 06/20/25 08:20 06/20/25 09:45 06/20/25 08:20 06/20/25 08:20 06/20/25 08:20 06/20/25 08:20 06/20/25 08:20 Oxygen Flow Rate (L/min) 2 Oxygen Delivery Method Nasal Cannula Weight: 240 lb 4.862 oz Body Mass Index (BMI) 31.8 Intake & Output: Intake and Output for Last 24 Hours 06/18/25 06/19/25 06/20/25 23:59 23:59 23:59 Intake Total 882.25 / 882.25 1617 / 1617 370.25 / 370.25 Output Total 1150 / 1650 800 / 800 250 / 250 Balance -267.75 / -767.75 817 / 817 120.25 / 120.25 Lab / Micro Data 06/20/25 06:10 06/20/25 06:10 Labs: Laboratory Results - last 24 hr 06/19/25 11:24: POC Glucose 159 H 06/19/25 16:29: POC Glucose 164 H 06/19/25 21:30: POC Glucose 158 H 06/20/25 06:10: WBC 9.3, RBC 3.86 L, Hgb 10.5 L, Hct 32.3 L, MCV 83.7, MCH 27.2, MCHC 32.5, RDW Std Deviation 40.4, RDW Coeff of Nathaniel 13.3, Plt Count 213, MPV 9.0, Immature Gran % (Auto) 1.000 H, Neut % (Auto) 64.5, Lymph % (Auto) 22.2, [place] % (Auto) 7.5, Eos % (Auto) 4.5, Baso % (Auto) 0.3, Absolute Neuts (auto) 6.0, Absolute Lymphs (auto) 2.06, Nucleated RBC % 0, Sodium 143, Potassium 3.3, Chloride 111 H, Carbon Dioxide 22.2, Anion Gap 10, BUN 19, Creatinine 1.09, Estim Creat Clear Calc 72.38, Est GFR (MDRD) Non-Af 70, BUN/Creatinine Ratio 17.7, Glucose 154 H, Calcium 9.1 06/20/25 06:54: POC Glucose 149 H Micro: Microbiology 06/15/25 17:25 Wound - Left Foot Gram Stain - Final 06/15/25 17:25 Wound - Left Foot Wound Culture - Final Proteus mirabilis Meth. resistant Staph. aureus Streptococcus group G 06/15/25 17:25 Wound - Left Foot Anaerobic Culture - Final Bacteroides fragilis Anaerobic cocci 06/17/25 02:45 Bone - 5th Toe Gram Stain - Final 06/17/25 02:45 Bone - 5th Toe Wound Culture - Final Proteus mirabilis Meth. resistant Staph. aureus 06/16/25 07:50 Wound - Axilla, Right Gram Stain - Final 06/16/25 07:50 Wound - Axilla, Right Wound Culture - Final Proteus mirabilis Enterococcus faecalis Coag Negative Staph 06/15/25 13:58 Blood Culture (Wb) - Left Hand Blood Culture - Preliminary No growth in 48 hours. 06/15/25 13:43 Blood Culture (Wb) - Left Hand Blood Culture - Preliminary No growth in 48 hours.
[2025-06-20 14:11] VITALS: BP 136/71; PULSE 59; RESP 18; TEMP 36.3; O2SAT 98
[2025-06-20 14:32] VITALS: O2SAT 98
[2025-06-20 17:43] LABS: Vancomycin, Trough Level 21.4 ug/mL (5.0-15.0)
--- NOTE | 2025-06-20 18:02 | PCM.RX.CS ---
Consult Antibiotic Management Pharmacy has been consulted to manage selected antibiotic: Vancomycin Type of Intervention Type of Consult: Follow-up Labs Labs: Sodium 143 mmol/L (133-145) 06/20/25 06:10 Potassium 3.3 mmol/L (3.3-5.1) 06/20/25 06:10 Chloride 111 mmol/L (98-108) H 06/20/25 06:10 Carbon Dioxide 22.2 mmol/L (21.0-32.0) 06/20/25 06:10 Anion Gap 10 (5-15) 06/20/25 06:10 BUN 19 mg/dL (4-19) 06/20/25 06:10 Creatinine 1.09 mg/dL (0.70-1.20) 06/20/25 06:10 Est GFR (MDRD) Non-Af 70 (>60) 06/20/25 06:10 BUN/Creatinine Ratio 17.7 RATIO (10-20) 06/20/25 06:10 Glucose 154 mg/dL (70-99) H 06/20/25 06:10 Vancomycin Trough 21.4 ug/mL (5.0-15.0) H 06/20/25 16:57 Microbiology Microbiology: Microbiology 06/15/25 13:58 Blood Culture (Wb) - Left Hand Blood Culture - Final No growth in 5 days. 06/15/25 13:43 Blood Culture (Wb) - Left Hand Blood Culture - Final No growth in 5 days. 06/17/25 02:45 Bone - 5th Toe Gram Stain - Final 06/17/25 02:45 Bone - 5th Toe Wound Culture - Final Proteus mirabilis Meth. resistant Staph. aureus 06/17/25 02:45 Bone - 5th Toe Anaerobic Culture - Final No anaerobic bacteria isolated. 06/15/25 17:25 Wound - Left Foot Gram Stain - Final 06/15/25 17:25 Wound - Left Foot Wound Culture - Final Proteus mirabilis Meth. resistant Staph. aureus Streptococcus group G 06/15/25 17:25 Wound - Left Foot Anaerobic Culture - Final Bacteroides fragilis Anaerobic cocci 06/16/25 07:50 Wound - Axilla, Right Gram Stain - Final 06/16/25 07:50 Wound - Axilla, Right Wound Culture - Final Proteus mirabilis Enterococcus faecalis Coag Negative Staph Pharmacy Plan for Drug Dosing Pharmacy Plan for Drug Dosing: VANCOMYCIN LEVEL RECEIVED Current Vancomycin Dose: 1000MG Q12 Number of Doses Received: many Vancomycin Level: 21.4 mg/dL Hours Since Last Dose: 12 Renal Function: SCr 1.09 mg/dL, CrCl 72 ml/min Renal Function Trend: stable, improving Vancomycin Plan/Comments: 12 hour trough is slightly supratherapeutic at 21.4mg/dL (goal 15-20). Will hold dosing for now and get a random level in 12 hours. Pending Level: 06/21/25 @ 0500 - random Pharmacy Service will continue to monitor and adjust dosing as required.
[2025-06-20 20:00] VITALS: BP 159/79; PULSE 61; RESP 16; TEMP 36.6; O2SAT 98
[2025-06-20] MEDS: 0.9% Saline Lock 10 ML Syringe IV (21:32)
[2025-06-21 02:00] VITALS: BP 152/80; PULSE 56; RESP 16; TEMP 36.6; O2SAT 96
[2025-06-21] MEDS: Piperacil/Tazobactam 3.375 GM in 0.9% Normal Saline (50mL MB+) 50 ML IV (05:07)
[2025-06-21 05:38] LABS: Hematocrit 32.1 % (40-54); Hemoglobin 10.5 g/dL (13.0-16.5); Immature Granulocytes Count 0.090 X10^3/uL (0.0-0.0); Mean Corp Hgb Conc 32.7 g/dL (32-36); Mean Corpuscular Volume 83.6 fL (80-94); Mean Platelet Vol. 8.9 fl (6.2-12.0); NRBC Flagged by Analyzer 0 % (0-5); Platelet Count 223 K/mm3 (150-450); RBC Distribution Width CV 13.4 % (11.6-14.6); RBC Distribution Width SD 40.4 fl (35.1-43.9); Red Blood Count 3.84 M/mm3 (4.6-6.2); White Blood Count 10.5 K/mm3 (4.4-11.0)
[2025-06-21 06:06] LABS: Anion Gap 9 (5-15); BUN 20 mg/dL (4-19); BUN/Creat Ratio 18.3 RATIO (10-20); Calcium,Total 9.3 mg/dL (7.6-11.0); Carbon Dioxide 22.6 mmol/L (21.0-32.0); Chloride 109 mmol/L (98-108); Estimated Creatinine Clearance 71.72 ml/min (50-250); Glucose 192 mg/dL (70-99); Potassium 3.3 mmol/L (3.3-5.1)
[2025-06-21 06:15] LABS: Vancomycin, Random Level 14.7 ug/mL (0.0-15.0)
--- NOTE | 2025-06-21 06:30 | PCM.RX.CS ---
Consult Antibiotic Management Pharmacy has been consulted to manage selected antibiotic: Vancomycin Type of Intervention Type of Consult: Follow-up Suspected Infection Suspected Infection: Osteomyelitis Labs Labs: Sodium 141 mmol/L (133-145) 06/21/25 05:30 Potassium 3.3 mmol/L (3.3-5.1) 06/21/25 05:30 Chloride 109 mmol/L (98-108) H 06/21/25 05:30 Carbon Dioxide 22.6 mmol/L (21.0-32.0) 06/21/25 05:30 Anion Gap 9 (5-15) 06/21/25 05:30 BUN 20 mg/dL (4-19) H 06/21/25 05:30 Creatinine 1.10 mg/dL (0.70-1.20) 06/21/25 05:30 Est GFR (MDRD) Non-Af 69 (>60) 06/21/25 05:30 BUN/Creatinine Ratio 18.3 RATIO (10-20) 06/21/25 05:30 Glucose 192 mg/dL (70-99) H 06/21/25 05:30 Vancomycin Trough 21.4 ug/mL (5.0-15.0) H 06/20/25 16:57 Random Vancomycin 14.7 ug/mL (0.0-15.0) 06/21/25 05:30 Microbiology Microbiology: Microbiology 06/15/25 13:58 Blood Culture (Wb) - Left Hand Blood Culture - Final No growth in 5 days. 06/15/25 13:43 Blood Culture (Wb) - Left Hand Blood Culture - Final No growth in 5 days. 06/17/25 02:45 Bone - 5th Toe Gram Stain - Final 06/17/25 02:45 Bone - 5th Toe Wound Culture - Final Proteus mirabilis Meth. resistant Staph. aureus 06/17/25 02:45 Bone - 5th Toe Anaerobic Culture - Final No anaerobic bacteria isolated. 06/15/25 17:25 Wound - Left Foot Gram Stain - Final 06/15/25 17:25 Wound - Left Foot Wound Culture - Final Proteus mirabilis Meth. resistant Staph. aureus Streptococcus group G 06/15/25 17:25 Wound - Left Foot Anaerobic Culture - Final Bacteroides fragilis Anaerobic cocci 06/16/25 07:50 Wound - Axilla, Right Gram Stain - Final 06/16/25 07:50 Wound - Axilla, Right Wound Culture - Final Proteus mirabilis Enterococcus faecalis Coag Negative Staph Dosing Weight Weight used for dosin kg Estimated Creatinine Clearance Estimated Creatinine Clearance: 72 Goal Trough Goal Trough: 15-20 mcg/mL Pharmacy Plan for Drug Dosing Pharmacy Plan for Drug Dosing: Vancomycin random level of 14.7 allows for re-starting dosing. Will give 500mg q12h, and will draw a trough level prior to the fourth dose of the new regimen. Pharmacy Service will continue to monitor and adjust dosing as required. Follow-Up Labs Follow-Up Labs: Trough: Vancomycin Date/Time Labs Ordered Labs to be done on [date and time ordered]: 06/22/25 @1800
[2025-06-21] MEDS: Vancomycin HCl 500 MG in 0.9% Normal Saline (100mL Bag) 100 ML 100 MG IV (06:36)
--- NOTE | 2025-06-21 08:25 | PN.HOSP_ITS ---
Reason for Visit Chief Complaint: Poor healing wound Subjective Subjective Feeling fine. No complaints. Objective Data Objective Data Vital Signs: Vital Signs Temp Pulse Resp BP Pulse Ox O2 Del Method O2 Flow Rate 36.6 C 56 L 16 152/80 H 96 Nasal Cannula 3 06/21/25 02:00 06/21/25 02:00 06/21/25 02:00 06/21/25 02:00 06/21/25 02:00 06/21/25 07:22 06/21/25 07:22 Oxygen Flow Rate (L/min) 3 Oxygen Delivery Method Nasal Cannula Weight: 109 kg Body Mass Index (BMI) 31.8 Intake & Output: Intake and Output for Last 24 Hours 06/19/25 06/20/25 06/21/25 23:59 23:59 23:59 Intake Total 1617 / 1617 956.25 / 956.25 50 / 50 Output Total 800 / 800 750 / 1100 750 / 750 Balance 817 / 817 206.25 / -143.75 -700 / -700 Lab / Micro Data 06/21/25 05:30 06/21/25 05:30 Labs: Laboratory Results - last 24 hr 06/20/25 11:07: POC Glucose 155 H 06/20/25 16:18: POC Glucose 182 H 06/20/25 16:57: Vancomycin Trough 21.4 H 06/20/25 21:39: POC Glucose 166 H 06/21/25 05:30: WBC 10.5, RBC 3.84 L, Hgb 10.5 L, Hct 32.1 L, MCV 83.6, MCH 27.3, MCHC 32.7, RDW Std Deviation 40.4, RDW Coeff of Nathaniel 13.4, Plt Count 223, MPV 8.9, Immature Gran % (Auto) 0.900, Neut % (Auto) 72.2 H, Lymph % (Auto) 15.2 L, [place] % (Auto) 6.4, Eos % (Auto) 5.0, Baso % (Auto) 0.3, Absolute Neuts (auto) 7.6, Absolute Lymphs (auto) 1.59, Nucleated RBC % 0, Sodium 141, Potassium 3.3, Chloride 109 H, Carbon Dioxide 22.6, Anion Gap 9, BUN 20 H, Creatinine 1.10, Estim Creat Clear Calc 71.72, Est GFR (MDRD) Non-Af 69, BUN/Creatinine Ratio 18.3, Glucose 192 H, Calcium 9.3, Random Vancomycin 14.7 06/21/25 06:03: POC Glucose 166 H Micro: Microbiology 06/15/25 13:58 Blood Culture (Wb) - Left Hand Blood Culture - Final No growth in 5 days. 06/15/25 13:43 Blood Culture (Wb) - Left Hand Blood Culture - Final No growth in 5 days. 06/17/25 02:45 Bone - 5th Toe Gram Stain - Final 06/17/25 02:45 Bone - 5th Toe Wound Culture - Final Proteus mirabilis Meth. resistant Staph. aureus 06/17/25 02:45 Bone - 5th Toe Anaerobic Culture - Final No anaerobic bacteria isolated. 06/15/25 17:25 Wound - Left Foot Gram Stain - Final 06/15/25 17:25 Wound - Left Foot Wound Culture - Final Proteus mirabilis Meth. resistant Staph. aureus Streptococcus group G 06/15/25 17:25 Wound - Left Foot Anaerobic Culture - Final Bacteroides fragilis Anaerobic cocci 06/16/25 07:50 Wound - Axilla, Right Gram Stain - Final 06/16/25 07:50 Wound - Axilla, Right Wound Culture - Final Proteus mirabilis Enterococcus faecalis Coag Negative Staph Physical Exam Const alert and no apparent distress Constitutional Narrative: up in bed. non-toxic. cooperative. Resp normal respiratory effort and no retractions GI soft to palpation, non-tender and non-distended Extremity Extremity Narrative: left foot ankle casted. Assessment & Plan Assessment/Plan (1) Chronic multifocal osteomyelitis of left foot: PLAN: Plan Acute osteomyelitis of metatarsal bone of left foot: * Acute on chronic. Patient had surgery in January and still not healing. * Podiatry, vascular and infectious disease consultation. * wound culture: proteus, MRSA, Enterococcus, group G strep * Heel weightbearing on the left * Antibiotics with pip-tazo and vancomycin. DC plan is for 1 week PO doxy 100 BID, Cefdinir 300 BID, metronidazole 500 BID. * patient underwent amputation of left 5th toe on 06/17 * follow up with podiatry. Chronic medical conditions: Diabetes mellitus type 2: Insulin-dependent. Continue with glargine. Add sliding scale insulin. A1c 7.2 Diabetic neuropathy: Complicates care and recovery Hyperlipidemia: Continue with atorvastatin PAD: Vascular surgery on consultation. Patient to follow up as outpt. History of PE: Apixaban on hold given the potential for surgery or debridement Atrial fibrillation: Rate controlled. Apixaban. BPH: Continue tamsulosin VTE prophylaxis with SCDs CODE STATUS: Afull code. Charges/Coding Visit Charges Inpatient E&M: 43226 Subs Hosp L2
--- NOTE | 2025-06-21 09:07 | CASEMGMT ---
Discharge Planning Updates sent via [facility] to [facility]. Tamika Encinas DC Planning Asst.
[2025-06-21 09:16] VITALS: BP 158/75; PULSE 60; RESP 18; TEMP 36.6; O2SAT 97
[2025-06-21] MEDS: Potassium Chloride Oral Tablet 20 MEQ 40 MEQ PO (09:31)
[2025-06-21 09:33] VITALS: BP 158/75; PULSE 60
[2025-06-21] MEDS: Metoprolol(XL)Succ 25 MG Tablet PO (09:33)
[2025-06-21] MEDS: Memantine Hydrochloride 10 MG Tablet PO (09:33)
[2025-06-21] MEDS: Insulin Glargine-YFGN 100 UNIT/ML Pen 9 UNIT SC (09:37)
[2025-06-21] MEDS: APIXABAN 5 MG TABLET PO (09:37)
--- NOTE | 2025-06-21 10:22 | PCM.TXEXTCAR ---
Diet Diet Order/Speech Therapy: INPATIENT Hospital Diet / Speech Therapy Order(s) 06/17/25 14:44 Diet: Consistent Carb - Calorie Controlled Type of Dietary Supplement:: Glucerna Shake How many daily calories?: 2000 calorie DC O2, CPAP, BIPAP needs Home O2 Discharge instructions: No Wound(s) left toe: Wound Type: Neuropathic/Diabetic Foot Ulcer Right Armpit: Wound Type: Abscess left lateral 5th toe: Wound Type: Neuropathic/Diabetic Foot Ulcer Dressing Change: betadine gauze left lateral foot: Wound Type: Neuropathic/Diabetic Foot Ulcer Dressing Change: betadine gauze right axilla: Wound Type: Abscess Dressing Change: dry padded dressing left foot: Wound Type: Amputation Therapies Weight Bearing: Partial weight bearing (with surgical shoe) Extremity Affected:: Left Lower Physical Therapy: Eval and Treat Occupational Therapy: Eval and Treat Problem/Diagnosis (1) Chronic multifocal osteomyelitis of left foot: Status: Acute Code(s): M86.372 - Chronic multifocal osteomyelitis, left ankle and foot Plan Acute osteomyelitis of metatarsal bone of left foot: Acute on chronic. Patient had surgery in January and still not healing. Podiatry, vascular and infectious disease consultation. wound culture: proteus, MRSA, Enterococcus, group G strep Heel weightbearing on the left Antibiotics with pip-tazo and vancomycin. DC plan is for 1 week PO doxy 100 BID, Cefdinir 300 BID, metronidazole 500 BID. 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 Chronic medical conditions: Diabetes mellitus type 2: Insulin-dependent. Continue with glargine. Add sliding scale insulin. A1c 7.2 Diabetic neuropathy: Complicates care and recovery Hyperlipidemia: Continue with atorvastatin PAD: Vascular surgery on consultation. Patient to follow up as outpt. History of PE: Apixaban on hold given the potential for surgery or debridement Atrial fibrillation: Rate controlled. Apixaban. BPH: Continue tamsulosin VTE prophylaxis with SCDs CODE STATUS: Afull code. Allergies/Procedures Done in Hospital Allergies propofol Adverse Reaction (Verified 06/17/25 13:04) Other GETS AGGRESSIVE Type of Care/Length of Stay Estimated LOS: Convalescent Care Less Than 30 days Type of Care Needed: Skilled Rehab Potential: Fair Prognosis: Fair Additional Orders/Day of Discharge Day of Discharge: 06/21/25 Dietary and Speech Recommendations Dietitian Recommendations/Changes: Continue current diet order per MD Continue Glucerna shake per MD order Order Luis BID to promote wound healing Patient may benefit from Luis post-discharge to support wound healing Discharge Plan Admission Admit Date/Time: 06/15/25 16:21 Primary Reason for Your Visit: left foot osteomyelitis Attending Provider: Aneesh Sutton Primary Care Provider: Rosita Littlejohn,Walter Consulting Providers: Smith Leija; Kee Mejia; Aneesh Ac; Aneesh Sutton; Caryl Mcdermott Discharge Orders/Prescriptions Prescriptions: New doxycycline monohydrate 100 mg capsule 100 mg PO BID Qty: 14 0RF cefdinir 300 mg capsule 300 mg PO BID Qty: 14 0RF metronidazole 500 mg tablet 500 mg PO BID Qty: 14 0RF Continued ferrous sulfate 325 mg (65 mg iron) tablet 325 mg PO DAILY insulin lispro [Humalog KwikPen Insulin] 100 unit/mL insulin pen 1 sliding scale dose subcut USEASDIRECTD guaifenesin 100 mg/5 mL liquid 200 mg PO Q6H PRN (Reason: congestion) loperamide 2 mg tablet 2 mg PO Q4H PRN (Reason: loose stool) Rx Instructions: administer after each loose stool until symptoms controlled; do not exceed 8 mg per 24 hrs magnesium hydroxide [Milk of Magnesia] 400 mg/5 mL suspension 30 ml PO QDAY PRN (Reason: constipation) losartan 50 MG tablet 50 mg PO DAILY atorvastatin 40 MG tablet 40 mg PO QHS tamsulosin 0.4 mg capsule 0.4 mg PO QHS Patient Comments: TAKE 1 CAPSULE BY MOUTH EVERYDAY AT BEDTIME sucralfate 1 gram Tablet 1 g PO 0700,1100,1600 Qty: 90 2RF pantoprazole 40 mg tablet,delayed release (DR/EC) 40 mg PO BID Qty: 60 2RF melatonin 3 mg Tablet 3 mg PO QHS PRN (Reason: Insomnia) Patient Comments: PRN PER [facility]. memantine 10 mg Tablet 10 mg PO BID Qty: 0 0RF acetaminophen 325 mg tablet 650 mg PO BID bisacodyl 10 mg suppository 10 mg FL DAILY PRN (Reason: constipation) cholecalciferol (vitamin D3) 1,250 mcg (50,000 unit) tablet 1,250 mcg PO QWEEK ipratropium-albuterol 0.5 mg-3 mg(2.5 mg base)/3 mL solution for nebulization 3 ml inhalation Q4H PRN (Reason: shortness of breath) Patient Comments: [NO ORIGINAL SIG] Kapspargo Sprinkle 25 mg capsule,sprnehemiasle,ER 24hr 25 mg PO DAILY clopidogrel 75 mg Tablet 75 mg PO DAILY 90 Days Qty: 0 0RF Luis 7-7-1.5 gram powder in packet PO BID Rx Instructions: packet orally; give 1 packet orally by mouth bid paroxetine HCl [Paxil] 20 mg tablet 20 mg PO DAILY insulin glargine [Lantus Solostar U-100 Insulin] 100 UNITS/ML insulin pen 18 unit subcut DAILY (DME) OXYGEN - Supplemental ([facility] INFORMATIONAL USE ONLY) 0 .ROUTE .MEDSUPPLY Patient Comments: 2lpm @ supplied by [facility] Eliquis 5 mg tablet 5 mg PO BID Qty: 60 11RF Referrals / Follow Up: Rosita Littlejohn,Walter, [Primary Care Provider, Integrative Medicine] - Within 2 Weeks Aneesh Ac MD [Med Staff - Active Staff, Vascular Surgery] - Within 1 Month Kee Mejia DPM [Med Staff - Active Staff, Podiatry] - Within 2 Weeks Disposition Disposition (needs filled in before D/C Order can be placed): Nursing Home Facility
--- NOTE | 2025-06-21 10:30 | PCM.DC.SUM ---
Providers Date of Admission: 06/15/25 Primary Care Physician: Dr. Walter Becker Sr., DO Consultations 06/15/25 16:54 Consult: Infectious Disease Routine Consulting Provider: Smith Leija Reason for Consult: osteomyeltitis EMERGENT Consult: No MD Notified: Yes Date Notified: 06/15/25 Time Notified: 17:10 Method of Notification: Text Consult: Onc/Wound/senior procurement specialist Routine Comment: Consult: Onc/Wound/senior procurement specialist Routine Comment: Consult: Podiatry Routine Consulting Provider: Kee Mejia Reason for Consult: osteomyelitis EMERGENT Consult: No Notified: Yes Date Notified: 06/15/25 Time Notified: 16:27 Method of Notification: ED Physician Initiated Consult: Vascular Surgery Routine Consulting Provider: Aneesh Ac Reason for Consult: PAD EMERGENT Consult: No Notified: Yes Date Notified: 06/15/25 Time Notified: 16:26 Method of Notification: ED Physician Initiated Reason For Visit: LEFT FOOT OSTEOMYELITIS Diagnosis Discharge Diagnosis (1) Chronic multifocal osteomyelitis of left foot: Status: Acute Code(s): M86.372 - Chronic multifocal osteomyelitis, left ankle and foot Plan Acute osteomyelitis of metatarsal bone of left foot: Acute on chronic. Patient had surgery in January and still not healing. Podiatry, vascular and infectious disease consultation. wound culture: proteus, MRSA, Enterococcus, group G strep Heel weightbearing on the left Antibiotics with pip-tazo and vancomycin. DC plan is for 1 week PO doxy 100 BID, Cefdinir 300 BID, metronidazole 500 BID. 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 Chronic medical conditions: Diabetes mellitus type 2: Insulin-dependent. Continue with glargine. Add sliding scale insulin. A1c 7.2 Diabetic neuropathy: Complicates care and recovery Hyperlipidemia: Continue with atorvastatin PAD: Vascular surgery on consultation. Patient to follow up as outpt. History of PE: Apixaban on hold given the potential for surgery or debridement Atrial fibrillation: Rate controlled. Apixaban. BPH: Continue tamsulosin VTE prophylaxis with SCDs CODE STATUS: Afull code. Medications at Discharge Home Medications losartan 50 mg tablet 50 mg PO DAILY blood pressure 03/24/18 atorvastatin 40 mg tablet 40 mg PO QHS cholesterol 05/22/18 tamsulosin 0.4 mg capsule 0.4 mg PO QHS PROSTATE 03/02/22 pantoprazole 40 mg tablet,delayed release 40 mg PO BID #60 tabs 02/05/23 sucralfate 1 gram tablet 1 g PO 0700,1100,1600 #90 tabs 02/05/23 melatonin 3 mg tablet 3 mg PO QHS PRN Insomnia 02/10/23 memantine 10 mg tablet 10 mg PO BID #0 tabs 02/13/23 bisacodyl 10 mg rectal suppository 10 mg AR DAILY PRN constipation 05/30/23 ferrous sulfate 325 mg (65 mg iron) tablet 325 mg PO DAILY 10/07/23 apixaban 5 mg tablet (Eliquis) 5 mg PO BID #60 tabs 03/03/24 ipratropium 0.5 mg-albuterol 3 mg (2.5 mg base)/3 mL nebulization soln 3 ml inhalation Q4H PRN shortness of breath 02/02/25 metoprolol succinate 25 mg capsule sprinkle, ext. release 24 hr (Kapspargo Sprinkle) 25 mg PO DAILY 02/02/25 clopidogrel 75 mg tablet 75 mg PO DAILY 90 days #0 tabs 02/11/25 arginine 7 gram-glutamine 7 gram-calcium HMB 1.5 gram oral powder pack (Luis) PO BID 02/27/25 insulin glargine 100 unit/mL (3 mL) subcutaneous pen (Lantus Solostar U-100 Insulin) 18 unit subcut DAILY diabetes 02/27/25 paroxetine HCl 20 mg tablet (Paxil) 20 mg PO DAILY 02/27/25 insulin lispro 100 unit/mL subcutaneous pen (Humalog KwikPen (U-100) Insulin) 1 sliding scale dose subcut USEASDIRECTD 03/03/25 acetaminophen 325 mg tablet 650 mg PO BID PAIN AND FEVER 03/22/25 cholecalciferol (vitamin D3) 1,250 mcg (50,000 unit) tablet 1,250 mcg PO QWEEK SUPPLEMENT 03/22/25 guaifenesin 100 mg/5 mL oral liquid 200 mg PO Q6H PRN congestion 03/22/25 loperamide 2 mg tablet 2 mg PO Q4H PRN loose stool 03/22/25 magnesium hydroxide 400 mg/5 mL oral suspension (Milk of Magnesia) 30 ml PO QDAY PRN constipation 03/22/25 OXYGEN - Supplemental ([facility] INFORMATIONAL USE ONLY) 06/18/25 cefdinir 300 mg capsule 300 mg PO BID #14 caps 06/21/25 doxycycline monohydrate 100 mg capsule 100 mg PO BID #14 caps 06/21/25 metronidazole 500 mg tablet 500 mg PO BID #14 tabs 06/21/25 Hospital Course Operations - (amputation left 5th toe. ) Weight / BMI Weight Weight: 109 kg Body Mass Index (BMI) 31.8 ABG / Lab / Microbiology Data 06/21/25 05:30 06/21/25 05:30 Laboratory: Laboratory Results - last 24 hr 06/20/25 11:07: POC Glucose 155 H 06/20/25 16:18: POC Glucose 182 H 06/20/25 16:57: Vancomycin Trough 21.4 H 06/20/25 21:39: POC Glucose 166 H 06/21/25 05:30: WBC 10.5, RBC 3.84 L, Hgb 10.5 L, Hct 32.1 L, MCV 83.6, MCH 27.3, MCHC 32.7, RDW Std Deviation 40.4, RDW Coeff of Nathaniel 13.4, Plt Count 223, MPV 8.9, Immature Gran % (Auto) 0.900, Neut % (Auto) 72.2 H, Lymph % (Auto) 15.2 L, Granite % (Auto) 6.4, Eos % (Auto) 5.0, Baso % (Auto) 0.3, Absolute Neuts (auto) 7.6, Absolute Lymphs (auto) 1.59, Nucleated RBC % 0, Sodium 141, Potassium 3.3, Chloride 109 H, Carbon Dioxide 22.6, Anion Gap 9, BUN 20 H, Creatinine 1.10, Estim Creat Clear Calc 71.72, Est GFR (MDRD) Non-Af 69, BUN/Creatinine Ratio 18.3, Glucose 192 H, Calcium 9.3, Random Vancomycin 14.7 06/21/25 06:03: POC Glucose 166 H Microbiology: Microbiology 06/17/25 02:45 Bone - 5th Toe Gram Stain - Final 06/17/25 02:45 Bone - 5th Toe Wound Culture - Final Proteus mirabilis Meth. resistant Staph. aureus 06/17/25 02:45 Bone - 5th Toe Anaerobic Culture - Preliminary Checking for anaerobes, further studies to follow. 06/15/25 13:58 Blood Culture (Wb) - Left Hand Blood Culture - Final No growth in 5 days. 06/15/25 13:43 Blood Culture (Wb) - Left Hand Blood Culture - Final No growth in 5 days. 06/15/25 17:25 Wound - Left Foot Gram Stain - Final 06/15/25 17:25 Wound - Left Foot Wound Culture - Final Proteus mirabilis Meth. resistant Staph. aureus Streptococcus group G 06/15/25 17:25 Wound - Left Foot Anaerobic Culture - Final Bacteroides fragilis Anaerobic cocci 06/16/25 07:50 Wound - Axilla, Right Gram Stain - Final 06/16/25 07:50 Wound - Axilla, Right Wound Culture - Final Proteus mirabilis Enterococcus faecalis Coag Negative Staph D/C Instructions DC O2, CPAP, BIPAP Needs Home O2 Discharge instructions: No Meaningful Use Info Meaningful Use Meaningful Use Diagnoses (Choose all that apply): None applicable Discharge Plan Admission Admit Date/Time: 06/15/25 16:21 Primary Reason for Your Visit: left foot osteomyelitis Attending Provider: Aneesh Sutton Primary Care Provider: Rosita Littlejohn,Walter Consulting Providers: Smith Leija; Kee Mejia; Aneesh Ac; Aneesh Sutton; Caryl Mcdermott Discharge Orders/Prescriptions Prescriptions: New doxycycline monohydrate 100 mg capsule 100 mg PO BID Qty: 14 0RF cefdinir 300 mg capsule 300 mg PO BID Qty: 14 0RF metronidazole 500 mg tablet 500 mg PO BID Qty: 14 0RF Continued ferrous sulfate 325 mg (65 mg iron) tablet 325 mg PO DAILY insulin lispro [Humalog KwikPen Insulin] 100 unit/mL insulin pen 1 sliding scale dose subcut USEASDIRECTD guaifenesin 100 mg/5 mL liquid 200 mg PO Q6H PRN (Reason: congestion) loperamide 2 mg tablet 2 mg PO Q4H PRN (Reason: loose stool) Rx Instructions: administer after each loose stool until symptoms controlled; do not exceed 8 mg per 24 hrs magnesium hydroxide [Milk of Magnesia] 400 mg/5 mL suspension 30 ml PO QDAY PRN (Reason: constipation) losartan 50 MG tablet 50 mg PO DAILY atorvastatin 40 MG tablet 40 mg PO QHS tamsulosin 0.4 mg capsule 0.4 mg PO QHS Patient Comments: TAKE 1 CAPSULE BY MOUTH EVERYDAY AT BEDTIME sucralfate 1 gram Tablet 1 g PO 0700,1100,1600 Qty: 90 2RF pantoprazole 40 mg tablet,delayed release (DR/EC) 40 mg PO BID Qty: 60 2RF melatonin 3 mg Tablet 3 mg PO QHS PRN (Reason: Insomnia) Patient Comments: PRN PER LONG TERM SEP. memantine 10 mg Tablet 10 mg PO BID Qty: 0 0RF acetaminophen 325 mg tablet 650 mg PO BID bisacodyl 10 mg suppository 10 mg AR DAILY PRN (Reason: constipation) cholecalciferol (vitamin D3) 1,250 mcg (50,000 unit) tablet 1,250 mcg PO QWEEK ipratropium-albuterol 0.5 mg-3 mg(2.5 mg base)/3 mL solution for nebulization 3 ml inhalation Q4H PRN (Reason: shortness of breath) Patient Comments: [NO ORIGINAL SIG] Kapspargo Sprinkle 25 mg capsule,jareth,ER 24hr 25 mg PO DAILY clopidogrel 75 mg Tablet 75 mg PO DAILY 90 Days Qty: 0 0RF Luis 7-7-1.5 gram powder in packet PO BID Rx Instructions: packet orally; give 1 packet orally by mouth bid paroxetine HCl [Paxil] 20 mg tablet 20 mg PO DAILY insulin glargine [Lantus Solostar U-100 Insulin] 100 UNITS/ML insulin pen 18 unit subcut DAILY (DME) OXYGEN - Supplemental ([facility] INFORMATIONAL USE ONLY) 0 .ROUTE .MEDSUPPLY Patient Comments: 2lpm @ supplied by [facility] Eliquis 5 mg tablet 5 mg PO BID Qty: 60 11RF Referrals / Follow Up: Rosita SrJose,Walter, [Primary Care Provider, Integrative Medicine] - Within 2 Weeks Aneesh Ac MD [Med Staff - Active Staff, Vascular Surgery] - Within 1 Month Kee Mejia DPM [Med Staff - Active Staff, Podiatry] - Within 2 Weeks Disposition Disposition (needs filled in before D/C Order can be placed): Intermediate Facility Charges/Coding Visit Charges Inpatient E&M: 40669 Disch Hosp
--- NOTE | 2025-06-21 10:37 | CASEMGMT ---
Addendum entered by Sanna Burroughs 06/21/25 14:43: Verbally spoke with hospitalist, pt is to be on eliquis and plavix. Addendum entered by Sanna Burroughs 06/21/25 14:34: Message from [facility] asking if pt is supposed to be on plavix as well as eliquis. Message sent to hospitalist who states he resumed what pt was on when he came in. DC post production assistant forwarded message to [facility]. Original Note: Spoke with hospitalist, pt is medically ready for dc on po atb. Completed transport sheet and given to dc post production assistant with trf to ext care and signed med list to complete final dc plans.
--- NOTE | 2025-06-21 10:46 | WOUNDNOTE ---
wound photo: left lateral foot
--- NOTE | 2025-06-21 10:47 | WOUNDNOTE ---
wound photo: left lateral foot
--- NOTE | 2025-06-21 11:01 | PHA.DC_ITS ---
Pharmacy [place] Med Reconciliation Pharmacy Service has performed discharge medication reconciliation for this patient. The patient's discharge medication list was reviewed for discrepancies and discrepancies were resolved. Medications at Discharge Home Medications losartan 50 mg tablet 50 mg PO DAILY blood pressure 03/24/18 atorvastatin 40 mg tablet 40 mg PO QHS cholesterol 05/22/18 tamsulosin 0.4 mg capsule 0.4 mg PO QHS PROSTATE 03/02/22 pantoprazole 40 mg tablet,delayed release 40 mg PO BID #60 tabs 02/05/23 sucralfate 1 gram tablet 1 g PO 0700,1100,1600 #90 tabs 02/05/23 melatonin 3 mg tablet 3 mg PO QHS PRN Insomnia 02/10/23 memantine 10 mg tablet 10 mg PO BID #0 tabs 02/13/23 bisacodyl 10 mg rectal suppository 10 mg HI DAILY PRN constipation 05/30/23 ferrous sulfate 325 mg (65 mg iron) tablet 325 mg PO DAILY 10/07/23 apixaban 5 mg tablet (Eliquis) 5 mg PO BID #60 tabs 03/03/24 ipratropium 0.5 mg-albuterol 3 mg (2.5 mg base)/3 mL nebulization soln 3 ml inhalation Q4H PRN shortness of breath 02/02/25 metoprolol succinate 25 mg capsule sprinkle, ext. release 24 hr (Kapspargo Sprinkle) 25 mg PO DAILY 02/02/25 clopidogrel 75 mg tablet 75 mg PO DAILY 90 days #0 tabs 02/11/25 arginine 7 gram-glutamine 7 gram-calcium HMB 1.5 gram oral powder pack (Luis) PO BID 02/27/25 insulin glargine 100 unit/mL (3 mL) subcutaneous pen (Lantus Solostar U-100 Insulin) 18 unit subcut DAILY diabetes 02/27/25 paroxetine HCl 20 mg tablet (Paxil) 20 mg PO DAILY 02/27/25 insulin lispro 100 unit/mL subcutaneous pen (Humalog KwikPen (U-100) Insulin) 1 sliding scale dose subcut USEASDIRECTD 03/03/25 acetaminophen 325 mg tablet 650 mg PO BID PAIN AND FEVER 03/22/25 cholecalciferol (vitamin D3) 1,250 mcg (50,000 unit) tablet 1,250 mcg PO QWEEK SUPPLEMENT 03/22/25 guaifenesin 100 mg/5 mL oral liquid 200 mg PO Q6H PRN congestion 03/22/25 loperamide 2 mg tablet 2 mg PO Q4H PRN loose stool 03/22/25 magnesium hydroxide 400 mg/5 mL oral suspension (Milk of Magnesia) 30 ml PO QDAY PRN constipation 03/22/25 OXYGEN - Supplemental ([facility] INFORMATIONAL USE ONLY) 06/18/25 cefdinir 300 mg capsule 300 mg PO BID #14 caps 06/21/25 doxycycline monohydrate 100 mg capsule 100 mg PO BID #14 caps 06/21/25 metronidazole 500 mg tablet 500 mg PO BID #14 tabs 06/21/25
--- NOTE | 2025-06-21 11:05 | CASEMGMT ---
Discharge Planning Discharge orders, signed med list, and transport time sent via [facility] to [facility]. Physicians will transport pt by cot at 12:30p. Nursing, RN CM, and pts (Lorena) updated. Tamika Encinas DC Planning Asst.
[2025-06-21 11:59] VITALS: BP 156/80; PULSE 60; RESP 18; TEMP 36.5; O2SAT 100
== END 2025-06-21 13:51 | DRG 617 ==
LOC: ED 14:07 → MS3 16:32
PROVIDERS: Internal Medicine; Internal Medicine Infectious Disease; Podiatrist; Student in an Organized Health Care Education/Training Program; Emergency Provider Surgery; PCP Internal Medicine
PROC: 0Y6Y0Z0 Detachment at Left 5th Toe, Complete, Open Approach (ICD-10-PCS; principal; 2025-06-17 13:15)
DX: E11.621 Type 2 diabetes mellitus with foot ulcer (principal); M86.172 Other acute osteomyelitis, left ankle and foot; M86.372 Chronic multifocal osteomyelitis, left ankle and foot; B95.2 Enterococcus as the cause of diseases classified elsewhere; E11.22 Type 2 diabetes mellitus with diabetic chronic kidney disease; L97.524 Non-pressure chronic ulcer of other part of left foot with necrosis of bone; B95.4 Other streptococcus as the cause of diseases classified elsewhere; N18.9 Chronic kidney disease, unspecified; I12.9 Hypertensive chronic kidney disease with stage 1 through stage 4 chronic kidney disease, or unspecified chronic kidney disease; I48.91 Unspecified atrial fibrillation; E11.69 Type 2 diabetes mellitus with other specified complication; E11.42 Type 2 diabetes mellitus with diabetic polyneuropathy; Z79.4 Long term (current) use of insulin; E78.00 Pure hypercholesterolemia, unspecified; E11.51 Type 2 diabetes mellitus with diabetic peripheral angiopathy without gangrene; E87.6 Hypokalemia; L03.032 Cellulitis of left toe; B95.62 Methicillin resistant Staphylococcus aureus infection as the cause of diseases classified elsewhere; B96.4 Proteus (mirabilis) (morganii) as the cause of diseases classified elsewhere; N40.0 Benign prostatic hyperplasia without lower urinary tract symptoms; Z79.01 Long term (current) use of anticoagulants; Z79.02 Long term (current) use of antithrombotics/antiplatelets; Z79.899 Other long term (current) drug therapy; Z86.16 Personal history of COVID-19; Z86.711 Personal history of pulmonary embolism
CPT/HCPCS: 36415; 73630; 80048; 80202; 82962; 83036; 83605; 84132; 85025; 85652; 86140; 87015; 87040; 87070; 87075; 87077; 87116; 87176; 87186; 87205; 87206; 87640; 88305; 88311; 93005; 93922; 93926; 97802; 99284; A4216